=== PATIENT | female | born 1970 | race American Indian/Alaskan Native ===

== ENCOUNTER 2016-06-15 14:29 | Emergency (ER) | payer MEDICAID ==
--- NOTE | 2016-06-15 16:33 | Emergency Department Report ---
Chief Complaint: Abdominal Pain Stated Complaint: HBP/ABD PAIN Time Seen by Provider: 06/15/16 16:32 - HPI History of Present Illness: pt c/o abd pain - ROS Review of Systems: + hx of htn + mid abd pain - Exam Vital Signs: Vital Signs 06/15/16 16:12 Temperature 97.7 F Pulse Rate 100 H Respiratory 20 Rate Blood Pressure 180/142 O2 Sat by Pulse 100 Oximetry Physical Exam: obese abd, soft, + llq abd tenderness MSE screening note: Focused history and physical exam performed. Due to findings the following was ordered: labs, ekg ED Disposition for MSE Condition: Stable Instructions: Abdominal Pain (ED)
[2016-06-15 16:51] LABS: Eosinophils % (Auto) 0.2 % (0.0-4.3); Mean Corpuscular HGB Conc 31 % (30-34); Mean Corpuscular Volume 72 fl (79-97); Platelet Count 474 K/mm3 (140-440); Red Blood Count 5.27 M/mm3 (3.65-5.03); Red Cell Distribution Width 18.3 % (13.2-15.2); White Blood Count 9.5 K/mm3 (4.5-11.0)
[2016-06-15 16:52] LABS: Hematocrit 37.9 % (30.3-42.9); Hemoglobin 11.6 gm/dl (10.1-14.3); Mean Corpuscular Hemoglobin 22 pg (28-32)
[2016-06-15 17:04] LABS: Albumin 3.4 g/dL (3.9-5); Albumin/Globulin Ratio 0.8 %; BUN/Creatinine Ratio 13.33; Bilirubin,Total 0.3 mg/dL (0.1-1.2); Calcium 11.1 mg/dL (8.4-10.2); Chloride 100.5 mmol/L (98-107); Potassium 3.4 mmol/L (3.6-5.0); Total Protein 7.7 g/dL (6.3-8.2)
[2016-06-15] MEDS ORDERED: CATAPRES ONE (17:56)
--- NOTE | 2016-06-15 17:59 | Emergency Department Report ---
ED Abdominal Pain HPI - General Chief Complaint: Abdominal Pain Stated Complaint: HBP/ABD PAIN Time Seen by Provider: 06/15/16 16:32 Source: patient Mode of arrival: Ambulatory Limitations: No Limitations - History of Present Illness Initial Comments: 46-year-old female with a past medical history of asthma, CRI, CHF (10 years ago ) diabetes, hypertension, anemia, anxiety, and previous cholecystectomy presents to the hospital complaints of abdominal pain 5 days. Pain is in the mid abdomen above the umbilicus, cramping, aching, intermittent, rated 10/10 in intensity. Worse palpation. No alleviating factors and taking over-the- counter medication including Aleve without improvement. Positive nausea and vomiting on average twice daily. Denies hematochezia, hematemesis, melena, fever, or diarrhea. Last bowel movement was 5 days ago. Decreased by mouth intake reported secondary to pain. Patient has been out of her BP medications for 3 days. Patient's presented here for similar symptoms in the past and retention secondary to medication noncompliance. PMD: None - Related Data Home Medications Medication Instructions Recorded Confirmed Last Taken Albuterol Sulfate [Proventil HFA] 6.7 gm INHALATION Q4-6H 02/15/16 02/15/16 Insulin Glargine [Lantus VIAL] 30 units SQ QHS 02/15/16 02/15/16 02/15/16 Lisinopril [Lisinopril] 40 mg PO BID 02/15/16 02/15/16 02/15/16 Previous Rx's Medication Instructions Recorded Last Taken Type Acetaminophen [Tylenol Arthritis] 650 mg PO QID PRN #30 tablet.er 02/15/16 Unknown Rx Clonidine HCl [Catapres] 0.3 mg PO TID #90 tablet 06/15/16 Unknown Rx Lisinopril [Zestril] 40 mg PO BID #60 tablet 06/15/16 Unknown Rx Polyethylene Glycol 3350 [Miralax 17 gm PO QDAY PRN #10 packet 06/15/16 Unknown Rx 3350] Allergies Allergy/AdvReac Type Severity Reaction Status Date / Time No Known Allergies Allergy Verified 04/14/15 06:02 ED Review of Systems ROS: Stated complaint: HBP/ABD PAIN Other details as noted in HPI Comment: All other systems reviewed and negative Other: Constitutional: No fevers chills Eyes: No eye pain visual changes ENT: No ear pain or throat pain Neck: Denies pain Respiratory: Denies cough wheezing shortness of breath Cardiovascular: Denies chest pain, palpitations, syncope GI: as per hpi : Denies dysuria Musculoskeletal: Denies back pain, joint swelling Skin: Denies rash, lesions, erythema Neurologic: Denies headache, numbness, weakness ED Past Medical Hx - Past Medical History Previous Medical History?: Yes Hx Hypertension: Yes Hx Congestive Heart Failure: Yes Hx Diabetes: Yes Hx Psychiatric Treatment: Yes (anxiety) Hx Asthma: Yes Additional medical history: Anemia - Surgical History Past Surgical History?: Yes Hx Cholecystectomy: Yes (2009) - Social History Smoking Status: Never Smoker Substance Use Type: None - Medications Home Medications: Home Medications Medication Instructions Recorded Confirmed Last Taken Type Acetaminophen [Tylenol Arthritis] 650 mg PO QID PRN #30 tablet.er 02/15/16 Unknown Rx Albuterol Sulfate [Proventil HFA] 6.7 gm INHALATION Q4-6H 02/15/16 02/15/16 History Insulin Glargine [Lantus VIAL] 30 units SQ QHS 02/15/16 02/15/16 02/15/16 History Lisinopril [Lisinopril] 40 mg PO BID 02/15/16 02/15/16 02/15/16 History Clonidine HCl [Catapres] 0.3 mg PO TID #90 tablet 06/15/16 Unknown Rx Lisinopril [Zestril] 40 mg PO BID #60 tablet 06/15/16 Unknown Rx Polyethylene Glycol 3350 [Miralax 17 gm PO QDAY PRN #10 packet 06/15/16 Unknown Rx 3350] ED Physical Exam - General Limitations: No Limitations - Other Other exam information: General: No limitations, moderate distress secondary to pain Head exam: Atraumatic, normocephalic Eyes exam: Normal appearance ENT: Moist mucous membrane, normal oropharynx Neck exam: Normal inspection, full range of motion, no meningismus nontender Respiratory exam: Clear to auscultation bilateral, no wheezes, rales, crackles Cardiovascular: Mild tachycardia regular rhythm Abdomen: Soft, nondistended, tenderness to the upper abdominal area without rebound or guarding Extremity: Full range of motion normal inspection no deformity Back: Normal Inspection, full range of motion, no tenderness Neurologic: Alert, oriented x3, cranial nerves intact, no motor or sensory deficit Psychiatric: normal affect, normal mood Skin: Warm, dry, intact ED Course Vital Signs 06/15/16 06/15/16 06/15/16 16:12 17:24 17:30 Temperature 97.7 F Pulse Rate 100 H Respiratory 20 Rate Blood Pressure 180/142 229/154 239/142 O2 Sat by Pulse 100 98 Oximetry 06/15/16 06/15/16 06/15/16 17:40 17:51 18:00 Temperature Pulse Rate 87 127 H Respiratory 19 15 Rate Blood Pressure 228/136 230/135 208/162 O2 Sat by Pulse 96 98 99 Oximetry 06/15/16 06/15/16 06/15/16 18:11 18:13 18:43 Temperature Pulse Rate 89 91 H Respiratory 15 20 15 Rate Blood Pressure 208/162 210/152 O2 Sat by Pulse 100 100 97 Oximetry 06/15/16 06/15/16 06/15/16 18:51 19:00 19:11 Temperature Pulse Rate 82 98 H 84 Respiratory 16 19 25 H Rate Blood Pressure 227/150 232/158 232/158 O2 Sat by Pulse 97 95 Oximetry 06/15/16 06/15/16 06/15/16 19:30 20:09 20:15 Temperature Pulse Rate 81 72 72 Respiratory 17 19 24 Rate Blood Pressure 229/142 O2 Sat by Pulse 95 98 95 Oximetry 06/15/16 06/15/16 06/15/16 20:31 20:45 21:01 Temperature Pulse Rate 68 82 71 Respiratory 24 15 24 Rate Blood Pressure 230/141 221/134 O2 Sat by Pulse 96 98 94 Oximetry 06/15/16 06/15/16 06/15/16 21:15 21:20 21:31 Temperature Pulse Rate 113 H 75 121 H Respiratory 19 19 Rate Blood Pressure 217/128 230/118 209/107 O2 Sat by Pulse 98 Oximetry 06/15/16 06/15/16 06/15/16 21:47 22:00 23:37 Temperature Pulse Rate 127 H Respiratory Rate Blood Pressure 174/80 128/87 210/138 O2 Sat by Pulse Oximetry - Reevaluation(s) Reevaluation #1: 06/15/16 17:59 Dilaudid, Zofran, clonidine, and NS ordered. CT pending/UA/UPT pending ED Medical Decision Making - Lab Data Result diagrams: 06/15/16 16:32 06/15/16 16:32 Lab Results 06/15/16 06/15/16 06/15/16 Range/Units 16:32 16:32 16:35 WBC 9.5 (4.5-11.0) K/mm3 RBC 5.27 H (3.65-5.03) M/mm3 Hgb 11.6 (10.1-14.3) gm/dl Hct 37.9 (30.3-42.9) % MCV 72 L (79-97) fl MCH 22 L (28-32) pg MCHC 31 (30-34) % RDW 18.3 H (13.2-15.2) % Plt Count 474 H (140-440) K/mm3 Lymph % (Auto) 19.2 (13.4-35.0) % Mills % (Auto) 4.0 (0.0-7.3) % Eos % (Auto) 0.2 (0.0-4.3) % Baso % (Auto) 1.0 (0.0-1.8) % Lymph # 1.8 (1.2-5.4) K/mm3 [place] # 0.4 (0.0-0.8) K/mm3 Eos # 0.0 (0.0-0.4) K/mm3 Baso # 0.1 (0.0-0.1) K/mm3 Seg Neutrophils % 75.6 H (40.0-70.0) % Seg Neutrophils # 7.2 (1.8-7.7) K/mm3 Sodium 143 (137-145) mmol/L Potassium 3.4 L (3.6-5.0) mmol/L Chloride 100.5 (98-107) mmol/L Carbon Dioxide 26 (22-30) mmol/L Anion Gap 20 mmol/L BUN 24 H (7-17) mg/dL Creatinine 1.8 H (0.7-1.2) mg/dL Estimated GFR 37 ml/min BUN/Creatinine Ratio 13.33 % Glucose 196 H (65-100) mg/dL Calcium 11.1 H (8.4-10.2) mg/dL Total Bilirubin 0.3 (0.1-1.2) mg/dL AST 13 (5-40) units/L ALT 13 (7-56) units/L Alkaline Phosphatase 98 (35-129) units/L Troponin T < 0.010 (0.00-0.029) ng/mL Total Protein 7.7 (6.3-8.2) g/dL Albumin 3.4 L (3.9-5) g/dL Albumin/Globulin Ratio 0.8 % Lipase 20 (13-60) units/L HCG, Qual (Negative) Urine Color (Yellow) Urine Turbidity (Clear) Urine pH (5.0-7.0) Ur Specific [place] (1.003-1.030) Urine Protein (Negative) mg/dL Urine Glucose (UA) (Negative) mg/dL Urine Ketones (Negative) mg/dL Urine Blood (Negative) Urine Nitrite (Negative) Urine Bilirubin (Negative) Urine Urobilinogen (<2.0) mg/dL Ur Leukocyte Esterase (Negative) Urine WBC (Auto) (0.0-6.0) /HPF Urine RBC (Auto) (0.0-6.0) /HPF U Epithel Cells (Auto) (0-13.0) /HPF Urine Bacteria (Auto) (Negative) /HPF Urine Mucus /HPF Urine HCG, Qual (Negative) 06/15/16 06/15/16 Range/Units 18:28 18:35 WBC (4.5-11.0) K/mm3 RBC (3.65-5.03) M/mm3 Hgb (10.1-14.3) gm/dl Hct (30.3-42.9) % MCV (79-97) fl MCH (28-32) pg MCHC (30-34) % RDW (13.2-15.2) % Plt Count (140-440) K/mm3 Lymph % (Auto) (13.4-35.0) % Mills % (Auto) (0.0-7.3) % Eos % (Auto) (0.0-4.3) % Baso % (Auto) (0.0-1.8) % Lymph # (1.2-5.4) K/mm3 [place] # (0.0-0.8) K/mm3 Eos # (0.0-0.4) K/mm3 Baso # (0.0-0.1) K/mm3 Seg Neutrophils % (40.0-70.0) % Seg Neutrophils # (1.8-7.7) K/mm3 Sodium (137-145) mmol/L Potassium (3.6-5.0) mmol/L Chloride (98-107) mmol/L Carbon Dioxide (22-30) mmol/L Anion Gap mmol/L BUN (7-17) mg/dL Creatinine (0.7-1.2) mg/dL Estimated GFR ml/min BUN/Creatinine Ratio % Glucose (65-100) mg/dL Calcium (8.4-10.2) mg/dL Total Bilirubin (0.1-1.2) mg/dL AST (5-40) units/L ALT (7-56) units/L Alkaline Phosphatase (35-129) units/L Troponin T (0.00-0.029) ng/mL Total Protein (6.3-8.2) g/dL Albumin (3.9-5) g/dL Albumin/Globulin Ratio % Lipase (13-60) units/L HCG, Qual Negative (Negative) Urine Color [place] (Yellow) Urine Turbidity Cloudy (Clear) Urine pH 5.0 (5.0-7.0) Ur Specific [place] 1.027 (1.003-1.030) Urine Protein 100 mg/dl (Negative) mg/dL Urine Glucose (UA) Neg (Negative) mg/dL Urine Ketones Neg (Negative) mg/dL Urine Blood Neg (Negative) Urine Nitrite Neg (Negative) Urine Bilirubin Neg (Negative) Urine Urobilinogen < 2.0 (<2.0) mg/dL Ur Leukocyte Esterase Tr (Negative) Urine WBC (Auto) 1.0 (0.0-6.0) /HPF Urine RBC (Auto) 8.0 (0.0-6.0) /HPF U Epithel Cells (Auto) 22.0 H (0-13.0) /HPF Urine Bacteria (Auto) 1+ (Negative) /HPF Urine Mucus Few /HPF Urine HCG, Qual Negative (Negative) - EKG Data -: EKG Interpreted by Me (nsr 91, lvh, lat t wave inv) - EKG Data When compared to previous EKG there are: no significant change (compared to 11/13) - Radiology Data Radiology results: report reviewed HPF and pelvis without contrast: Mild colitis of the proximal left colon which could also be due to peristalsis colonoscopy recommended because underlying mass could have this appearance - Medical Decision Making Patient had extended ER stay were tried to control her blood pressure. Patient' s been noncompliant with her clonidine for several days likely the resulting of rebound hypertension. We were initially able to get her blood pressure down temporarily and then increased again. Patient states she no longer wants to stay in the hospital and is requested to sign out AMA. I have agreed to provide a refill in her blood pressure medication. Patient given additional labetalol 10 mg and lisinopril 40 minutes by mouth prior to her AMA. She was cautioned that elevated blood pressure can lead to stroke, kidney failure, and heart attack. CT significant for mild colitis or could be due to periods dialysis. Patient has not had diarrhea, leukocytosis, fever, or other infectious symptoms therefore she will be instructed to follow up with GI as outpatient. I do not believe antibiotics are indicated at this time. Patient also tachycardia prior to leaving. Tachycardia started after receiving hydralazine include be a result of this medication. Initial tachycardia recorded was erroneous and heart rate was reported to be less than 100s by the nurse prior to Hydralyzine - Differential Diagnosis pancreatitis, constipation, gastroparesis, hypertensive emergency Critical Care Time: No Critical care attestation.: If time is entered above; I have spent that time in minutes in the direct care of this critically ill patient, excluding procedure time. ED Disposition Clinical Impression: Abdominal pain, Constipation, Bowel wall thickening, Uncontrolled hypertension , Noncompliance with medication regimen, Hypokalemia, Chronic renal insufficiency Disposition: LEFT AGAINST MEDICAL ADVICE Is pt being admited?: No Does the pt Need Aspirin: No Condition: Stable Instructions: Constipation (ED), Abdominal Pain (ED), Hypertension (ED) Additional Instructions: Take the medication as prescribed. Try not to miss any doses due to risk of rebound elevated blood pressure that is difficult to control. You are signing put against medical advice because your blood pressure your heart rate was still elevated. You CT scan shows thickening of the first part of the left colon and 2 parts of your distal colon. This could represent mild colitis ( inflammation) but an underlying mass cannot also appears similar. It is very important you follow up with the GI physician for outpatient colonoscopy and reassessment Prescriptions: Clonidine HCl [Catapres] 0.3 mg PO TID #90 tablet Lisinopril [Zestril] 40 mg PO BID #60 tablet Polyethylene Glycol 3350 [Miralax 3350] 17 gm PO QDAY PRN #10 packet PRN Reason: Constipation Referrals: PHAM VAZQUEZ MD [Staff Physician] - 3-5 Days (GI doctor) SAUNDRA DANIELS MD, PHD [Staff Physician] - 3-5 Days (Primary care doctor) [facility] [Provider Group] - 3-5 Days (Primary care clinic) Time of Disposition: 23:42
[2016-06-15] MEDS: K-DUR PO ONE (18:05)
[2016-06-15] MEDS: CATAPRES PO ONE ×2 (18:07→18:37)
[2016-06-15] MEDS: ZOFRAN IV ONE (18:09)
[2016-06-15] MEDS: DILAUDID IV ONE ×2 (18:11→21:57)
[2016-06-15] MEDS: NACL 0.9% 1000 ML 1,000 ML IV ONE (18:13)
--- NOTE | 2016-06-15 18:33 | Admit Criteria Form ---
Admission Criteria Documentation: ABDOMINAL PAIN Clinical Indications for Admission to Inpatient Care (Place 'X' for any and all applicable criteria): Admission is indicated for ANY ONE of the following(1)(2)(3)(4)(5): [X ]I. Inpatient admission required rather than observation care (Also use Abdominal Pain: Observation Care, as appropriate) because of ANY ONE of the following: [X ]a) Severe pain requiring acute inpatient management [ ]b) Identification of etiology/finding that requires inpatient care (eg, aortic dissection, free air) [ ]c) Absent bowel sounds with complete ileus(6) [ ]d) Suspected toxic megacolon [ ]e) Severe electrolyte abnormalities requiring inpatient care [ ]f) High fever or infection requiring inpatient admission as indicated by ANY ONE of following(7)(8): [ ] i) Appropriate outpatient or observational care antimicrobial treatment unavailable, not effective, or not feasible [ ] ii) Documented bacteremia [ ] iii) Temperature > 104.9 degrees F (oral) [ ] iv) T >103.1 F (oral) or < 96.8 F(rectal) that does not respond to all emergency treatment measures [ ]g) Signs of intestinal obstruction [B] [ ]h) Hemodynamic instability [ ]i) IV fluid to replace significant ongoing losses (greater than 3 L/m2 per day) (12)(13) [ ]j) Percutaneous or open drainage (eg, abscess, biliary tract ) procedures [ ]k) Parenteral nutrition regimen that must be implemented on inpatient basis [X ]l) Other condition,treatment or monitoring requiring inpatient admission. [ ]II. Peritoneal signs present [ ]III. Surgery needed that cannot be performed on an ambulatory basis. [ ]IV. Evaluation requires patient to not eat or drink for extended period ( eg, more than 24 hours). [ ]V. Contraindications and/or Inappropriate clinical situations for Observational Care in patients with abdominal pain, when ANY ONE of the following is required: [ ]a) Thorough evaluation is required to prevent catastrophic events due to delays in diagnosing (e.g.Mesenteric ischemia) 1,3 [ ]b) Patient with severe pathology or with chronic symptoms unlikely to improve in the ED stay (3) [ ]. General contraindications and/or Inappropriate clinical situations for Observational Care in patients with abdominal pain, when ANY ONE of the following is required: [ ]a) Prediction of prolongation of LOS based on ANY ONE of the following may be considered as a contraindication for observational care 2, 3, 4, 5, 6, 7, 8, 9, 10, 11 [ ]i) Age > 65 yrs. [ ]ii) Patient arriving by ambulance [ ]iii) Patient with high acuity [ ]iv) Patient requiring vital sign monitoring [ ]v) Patient on IV medication [ ]b) Systolic blood pressures 180mmHg 3,12 [ ]c) Patient with altered mental status including delirium and other alteration of consciousness, (3) [ ]d) Patient whose discharge disposition will be to a retirement home or rehabilitation home should not be managed in Emergency Department Observation Unit. CMS rule requires 3 days hospital stay before such placement.3,13 [ ]e) Patient with failure to thrive due to broad array of etiologies 3,16,17 [ ]f) Inability to ambulate 3,14 Extended stay beyond goal length of stay may be needed for(2)(3): [ ]a) Persistent abdominal pain with suspected intra-abdominal process [ ]b) Diagnosed condition requiring continued stay (e.g., pancreatitis, complicated diverticulitis) [ ]c) Surgery (e.g., colectomy) The original [employer] [facility] content created by [employer] has been revised. The portions of the content which have been revised are identified through the use of italic text or in bold, and [facility] has neither reviewed nor approved the modified material.All other unmodified content is copyright [employer] [facility]. Please see references footnoted in the original [employer] [facility] edition 2016 Admission Criteria Met: Yes
[2016-06-15 19:28] LABS: Bacteria,Urine 1+ /HPF (Negative); Bilirubin,Urine NEG (Negative); Blood,Urine NEG (Negative); Ketones,Urine NEG (Negative); Leukocyte Esterase,Urine TR (Negative); Mucus,Urine FEW /HPF; Nitrite,Urine NEG (Negative); Urobilinogen,Urine < 2.0 mg/dL (<2.0)
--- NOTE | 2016-06-15 20:55 | Cat Scan Report ---
FINAL REPORT PROCEDURE: CT ABDOMEN PELVIS WO CON TECHNIQUE: Computerized axial tomography of the abdomen and pelvis was performed without intravenous contrast. This study is performed without intravascular contrast material and its sensitivity for abdominal and pelvic pathology, including neoplasms, inflammation, abscess, free fluid, thrombosis, arterial dissection and infarction, is reduced compared with a contrast enhanced study. HISTORY: mid abd pain, constipation, n,v COMPARISON: No prior studies are available for comparison. FINDINGS: Visualized lower thorax: No significant abnormality. Liver: Normal size and attenuation. Spleen: Normal size and attenuation. Gallbladder and biliary system: There has been cholecystectomy. Pancreas: Normal. Adrenals: There is a fat density 2 centimeter right adrenal nodule, likely benign. Kidneys: Normal. GI tract: The appendix is visualized and does not appear inflamed. There is focal wall thickening and indistinctness of the proximal left colon, which may be related to colitis. There are 2 short segments of wall thickening of the distal colon, in the distal left colon and proximal sigmoid colon. Although these could be related to peristalsis or mild colitis, cannot exclude underlying mucosal lesion. There is mild to moderate constipation. No evidence of small bowel obstruction. Lymph nodes and mesentery: Normal. Vasculature: Normal. Bladder: Normal. Reproductive organs: 18 millimeter left ovarian cyst. Peritoneum: No free fluid. Musculoskeletal structures: Bilateral L5 pars interarticularis defects. Other: None. IMPRESSION: Mild colitis of the proximal left colon. There also 2 segments of focal wall thickening of the distal colon as described above, possibly related to peristalsis or mild colitis. However recommend further evaluation with colonoscopy, as underlying mass could also have this appearance. Moderate constipation.
[2016-06-15] MEDS: APRESOLINE IV ONE (21:20)
[2016-06-15] MEDS: CEPHULAC PO ONE (21:57)
[2016-06-15] MEDS ORDERED: NORMODYNE IV ONE (23:29)
[2016-06-15 23:37] VITALS: BP 210/138
[2016-06-15] MEDS: NORMODYNE IV ONE (23:37)
[2016-06-16] MEDS: ZOFRAN IV ONE (00:05)
[2016-06-16] MEDS: ZESTRIL PO ONE (00:05)
== END 2016-06-16 00:17 | disposition left against medical advice (07) ==
LOC: ED 14:29
DX: E11.22 Type 2 diabetes mellitus with diabetic chronic kidney disease (principal); I12.9 Hypertensive chronic kidney disease with stage 1 through stage 4 chronic kidney disease, or unspecified chronic kidney disease; N18.9 Chronic kidney disease, unspecified; I50.9 Heart failure, unspecified; J45.909 Unspecified asthma, uncomplicated; R10.9 Unspecified abdominal pain; K59.00 Constipation, unspecified; Z91.14 Patient's other noncompliance with medication regimen; E87.6 Hypokalemia
CPT/HCPCS: 36415; 74176; 80053; 81001; 81025; 83690; 84484; 84703; 85025; 93005; 93010; 96361; 96374; 96375; 96376; 99284; J0360; J1170; J2405; J7030

== ENCOUNTER 2016-09-02 23:55 | Inpatient (IN) | payer MEDICAID ==
--- NOTE | 2016-09-03 00:37 | Emergency Department Report ---
ED Neuro Deficit HPI - General Stated Complaint: RT SIDE WEAKNESS Time Seen by Provider: 09/03/16 00:02 Source: police, old records reviewed (previous admissions for uncontrolled hypertension and previous visits for abdominal pain) Mode of arrival: Wheelchair Limitations: Physical Limitation, Other - History of Present Illness Initial Comments: 46-year-old female with a past medical history of asthma, chronic renal insufficiency, CHF, diabetes, hypertension, anemia, and anxiety presents to the hospital with strokelike symptoms. Symptoms sudden onset at 11:40 PM was witnessed by family members. They report that patient was speaking to them to all of the sudden face twisted and patient had difficulty speaking. By time of patient arrival to the ED she is completely aphasic and appears to have twisting of her left face therefore appearing to have right facial droop. Patient stares and does not answer question or nod yes or no when asked specifically questions. - Related Data Home Medications: Home Medications Medication Instructions Recorded Confirmed Last Taken Albuterol Sulfate [Proventil HFA] 6.7 gm INHALATION Q4-6H 02/15/16 02/15/16 Insulin Glargine [Lantus VIAL] 30 units SQ QHS 02/15/16 02/15/16 02/15/16 Lisinopril [Lisinopril] 40 mg PO BID 02/15/16 02/15/16 02/15/16 Previous Rx's Medication Instructions Recorded Last Taken Type Acetaminophen [Tylenol Arthritis] 650 mg PO QID PRN #30 tablet.er 02/15/16 Unknown Rx Clonidine HCl [Catapres] 0.3 mg PO TID #90 tablet 06/15/16 Unknown Rx Lisinopril [Zestril] 40 mg PO BID #60 tablet 06/15/16 Unknown Rx Polyethylene Glycol 3350 [Miralax 17 gm PO QDAY PRN #10 packet 06/15/16 Unknown Rx 3350] Allergies/Adverse Reactions: Allergies Allergy/AdvReac Type Severity Reaction Status Date / Time No Known Allergies Allergy Verified 04/14/15 06:02 ED Review of Systems ROS: Stated complaint: RT SIDE WEAKNESS Other details as noted in HPI Comment: Unobtainable due to pts medical conditions ED Past Medical Hx - Past Medical History Hx Hypertension: Yes Hx Congestive Heart Failure: Yes Hx Diabetes: Yes Hx Psychiatric Treatment: Yes (anxiety) Hx Asthma: Yes Additional medical history: Anemia - Surgical History Hx Cholecystectomy: Yes (2009) - Social History Smoking Status: Never Smoker Substance Use Type: None - Medications Home Medications: Home Medications Medication Instructions Recorded Confirmed Last Taken Type Acetaminophen [Tylenol Arthritis] 650 mg PO QID PRN #30 tablet.er 02/15/16 Unknown Rx Albuterol Sulfate [Proventil HFA] 6.7 gm INHALATION Q4-6H 02/15/16 02/15/16 History Insulin Glargine [Lantus VIAL] 30 units SQ QHS 02/15/16 02/15/16 02/15/16 History Lisinopril [Lisinopril] 40 mg PO BID 02/15/16 02/15/16 02/15/16 History Clonidine HCl [Catapres] 0.3 mg PO TID #90 tablet 06/15/16 Unknown Rx Lisinopril [Zestril] 40 mg PO BID #60 tablet 06/15/16 Unknown Rx Polyethylene Glycol 3350 [Miralax 17 gm PO QDAY PRN #10 packet 06/15/16 Unknown Rx 3350] ED Neuro Physical Exam - General Suspected Stroke: Yes - NIHSS Assessment Interval: Baseline 1a. Level of Consciousness: alert 1b. LOC Questions: answers correctly 1c. LOC Commands: performs tasks correctly 2. Best Gaze: normal 3. Visual: no visual loss 4. Facial Palsy: partial paralysis 5b. Motor Arm Right: no drift 5a. Motor Arm Left: no drift 6a. Motor Leg Left: no drift 6b. Motor Leg Right: no drift 7. Limb Ataxia: absent (pt will not perform task) 8. Sensory: normal 9. Best Language: mute/global aphasia 10. Dysarthria: severe dysarthria (not speaking) 11. Extinction/Inattention: no abnormality - Other Other exam information: General: No limitations, patient is alert in no acute distress Head exam: Atraumatic, normocephalic Eyes exam: Normal appearance, pupils equal reactive to light, extraocular movements intact ENT: Moist mucous membrane Neck exam: Normal inspection Respiratory exam: Clear to auscultation bilateral, no wheezes, rales, crackles Cardiovascular: Tachycardic regular rhythm Abdomen: Soft, nondistended, and nontender, with normal bowel sounds, no rebound, or guarding Extremity: Full range of motion normal inspection no deformity Back: Normal Inspection, full range of motion, no tenderness Neurologic: Alert, but will not speak, follow some commands, left facial droop, see NIH stroke scale. Patient unable to follow commands for [id number] testing Psychiatric: Anxious Skin: Warm, dry, intact ED Course Vital Signs 09/03/16 09/03/16 09/03/16 00:00 01:30 02:04 Pulse Rate 108 H Respiratory 18 22 Rate Blood Pressure 240/160 O2 Sat by Pulse 98 Oximetry 09/03/16 09/03/16 09/03/16 02:05 02:07 02:11 Pulse Rate 91 H 93 H 120 H Respiratory 26 H 23 Rate Blood Pressure 241/139 205/114 O2 Sat by Pulse 98 Oximetry 09/03/16 09/03/16 09/03/16 02:15 02:21 02:25 Pulse Rate 130 H 121 H 115 H Respiratory 19 28 H 26 H Rate Blood Pressure 205/114 205/114 205/114 O2 Sat by Pulse 96 Oximetry 09/03/16 09/03/16 09/03/16 02:30 02:35 02:41 Pulse Rate 114 H 158 H 108 H Respiratory 15 19 20 Rate Blood Pressure 182/99 182/99 182/99 O2 Sat by Pulse 98 Oximetry 09/03/16 09/03/16 09/03/16 02:45 02:51 02:55 Pulse Rate 120 H 120 H 107 H Respiratory 27 H 26 H 16 Rate Blood Pressure 222/128 222/128 206/118 O2 Sat by Pulse 99 96 98 Oximetry 09/03/16 09/03/16 09/03/16 03:00 03:05 03:10 Pulse Rate 115 H 109 H 141 H Respiratory 16 24 27 H Rate Blood Pressure 203/131 210/123 221/173 O2 Sat by Pulse 96 97 97 Oximetry 09/03/16 09/03/16 09/03/16 03:15 03:21 03:25 Pulse Rate 126 H 133 H 121 H Respiratory 21 20 24 Rate Blood Pressure 221/173 238/166 242/176 O2 Sat by Pulse 98 98 97 Oximetry 09/03/16 09/03/16 09/03/16 03:31 03:35 03:41 Pulse Rate 102 H 105 H 116 H Respiratory 24 25 H 22 Rate Blood Pressure 163/90 154/90 154/90 O2 Sat by Pulse 91 Oximetry 09/03/16 09/03/16 03:45 03:51 Pulse Rate 144 H 149 H Respiratory 24 18 Rate Blood Pressure 154/90 197/113 O2 Sat by Pulse 98 96 Oximetry - Reevaluation(s) Reevaluation #1: While patient was in CAT scan nurse reports that she was speaking intermittently and laughing and facial droop appears to be resolved however, upon returning back from CT she was aphasic with continued twisting of the left side of her face. 09/03/16 02:01 Labetalol IV was ordered at 1:16 for elevated blood pressure while awaiting for Cardene to be received from pharmacy. Blood pressure is still elevated in Cardene drip is being initiated at this time. Family states they now want TPA and therefore we are trying to reduce blood pressure within TPA parameters prior to her administration of medication. Patient developed one episode of vomiting prior to TPA administration Reevaluation #2: 09/03/16 02:31 Patient becoming increasingly agitated even prior to TPA especially when blood pressure cuff contracts on her arm. Ativan 1 mg provided to calm down patient. Patient requiring physical restraints at this time - Consultations Consultation #1: 09/03/16 12:[address] Doll cannon pinion adjuster neurologist who interviewed the patient and subsequently interviewed the family. Interview and exam completed at approximately 1:18 AM. At this time patient's family did not want TPA. Blood pressure is also elevated beyond TPA parameters. However, Dr. Doll states that patient have 4.5 hours from onset of symptoms to receive TPA if they changed their mind. Consultation #2: 09/03/16 01:59 Family states they want TPA at this time. Cardene just became available from pharmacy and is initiated. Waiting on blood pressure reduction prior to TPA administration. Patient also requires a second IV line - Lab Data Result diagrams: 09/03/16 00:10 09/03/16 00:10 Lab Results 09/03/16 09/03/16 09/03/16 Range/Units 00:03 00:10 00:10 WBC 13.9 H (4.5-11.0) K/mm3 RBC 5.95 H (3.65-5.03) M/mm3 Hgb 13.1 (10.1-14.3) gm/dl Hct 44.0 H (30.3-42.9) % MCV 74 L (79-97) fl MCH 22 L (28-32) pg MCHC 30 (30-34) % RDW 17.5 H (13.2-15.2) % Plt Count 391 (140-440) K/mm3 Lymph % (Auto) Mobility Developer Rooks % (Auto) Mobility Developer Eos % (Auto) Mobility Developer Baso % (Auto) Mobility Developer Lymph # Mobility Developer Rooks # Mobility Developer Eos # Mobility Developer Baso # Mobility Developer Add Manual Diff Complete Total Counted 100 Seg Neutrophils % Mobility Developer Seg Neuts % (Manual) 43.0 (40.0-70.0) % Band Neutrophils % 0 % Lymphocytes % (Manual) 54.0 H (13.4-35.0) % Reactive Lymphs % (Man) 0 % Monocytes % (Manual) 2.0 (0.0-7.3) % Eosinophils % (Manual) 1.0 (0.0-4.3) % Basophils % (Manual) 0 (0.0-1.8) % Metamyelocytes % 0 % Myelocytes % 0 % Promyelocytes % 0 % Blast Cells % 0 % Nucleated RBC % Not Reportable Seg Neutrophils # Mobility Developer Seg Neutrophils # Man 6.0 (1.8-7.7) K/mm3 Band Neutrophils # 0.0 K/mm3 Lymphocytes # (Manual) 7.5 H (1.2-5.4) K/mm3 Abs React Lymphs (Man) 0.0 K/mm3 Monocytes # (Manual) 0.3 (0.0-0.8) K/mm3 Eosinophils # (Manual) 0.1 (0.0-0.4) K/mm3 Basophils # (Manual) 0.0 (0.0-0.1) K/mm3 Metamyelocytes # 0.0 K/mm3 Myelocytes # 0.0 K/mm3 Promyelocytes # 0.0 K/mm3 Blast Cells # 0.0 K/mm3 WBC Morphology Not Reportable Hypersegmented Neuts Not Reportable Hyposegmented Neuts Not Reportable Hypogranular Neuts Not Reportable Smudge Cells Not Reportable Toxic Granulation Not Reportable Toxic Vacuolation Not Reportable Dohle Bodies Not Reportable Pelger-Huet Anomaly Not Reportable Jasmina Rods Not Reportable Platelet Estimate Appears normal Clumped Platelets Not Reportable Plt Clumps, EDTA Not Reportable Large Platelets Not Reportable Giant Platelets Not Reportable Platelet Satelliting Not Reportable Plt Morphology Comment Not Reportable RBC Morphology Not Reportable Dimorphic RBCs Not Reportable Polychromasia Not Reportable Hypochromasia 1+ Poikilocytosis Not Reportable Anisocytosis Not Reportable Microcytosis Not Reportable Macrocytosis Not Reportable Spherocytes Not Reportable Pappenheimer Bodies Not Reportable Sickle Cells Not Reportable Target Cells Not Reportable Tear Drop Cells Not Reportable Ovalocytes Not Reportable Helmet Cells Not Reportable Monet-Dresbach Bodies Not Reportable [place] Rings Not Reportable [place] Cells Not Reportable Bite Cells Not Reportable Crenated Cell Not Reportable Elliptocytes Not Reportable Acanthocytes (Spur) Not Reportable Rouleaux Not Reportable Hemoglobin C Crystals Not Reportable Schistocytes Not Reportable Malaria parasites Not Reportable Jun Bodies Not Reportable Hem Pathologist Commnt No PT 12.9 (12.2-14.9) Sec. INR 0.98 (0.87-1.13) APTT 29.0 (24.2-36.6) Sec. Thrombin Time 16.8 (15.1-19.6) Sec. Sodium (137-145) mmol/L Potassium (3.6-5.0) mmol/L Chloride (98-107) mmol/L Carbon Dioxide (22-30) mmol/L Anion Gap mmol/L BUN (7-17) mg/dL Creatinine (0.7-1.2) mg/dL Estimated GFR ml/min BUN/Creatinine Ratio % Glucose (65-100) mg/dL POC Glucose 177 H (70-105) Calcium (8.4-10.2) mg/dL Magnesium (1.7-2.3) mg/dL HCG, Qual (Negative) Blood Type Antibody Screen DELORIS Antibody Screen 09/03/16 09/03/16 09/03/16 Range/Units 00:10 00:10 00:10 WBC (4.5-11.0) K/mm3 RBC (3.65-5.03) M/mm3 Hgb (10.1-14.3) gm/dl Hct (30.3-42.9) % MCV (79-97) fl MCH (28-32) pg MCHC (30-34) % RDW (13.2-15.2) % Plt Count (140-440) K/mm3 Lymph % (Auto) Rooks % (Auto) Eos % (Auto) Baso % (Auto) Lymph # Rooks # Eos # Baso # Add Manual Diff Total Counted Seg Neutrophils % Seg Neuts % (Manual) (40.0-70.0) % Band Neutrophils % % Lymphocytes % (Manual) (13.4-35.0) % Reactive Lymphs % (Man) % Monocytes % (Manual) (0.0-7.3) % Eosinophils % (Manual) (0.0-4.3) % Basophils % (Manual) (0.0-1.8) % Metamyelocytes % % Myelocytes % % Promyelocytes % % Blast Cells % % Nucleated RBC % Seg Neutrophils # Seg Neutrophils # Man (1.8-7.7) K/mm3 Band Neutrophils # K/mm3 Lymphocytes # (Manual) (1.2-5.4) K/mm3 Abs React Lymphs (Man) K/mm3 Monocytes # (Manual) (0.0-0.8) K/mm3 Eosinophils # (Manual) (0.0-0.4) K/mm3 Basophils # (Manual) (0.0-0.1) K/mm3 Metamyelocytes # K/mm3 Myelocytes # K/mm3 Promyelocytes # K/mm3 Blast Cells # K/mm3 WBC Morphology Hypersegmented Neuts Hyposegmented Neuts Hypogranular Neuts Smudge Cells Toxic Granulation Toxic Vacuolation Dohle Bodies Pelger-Huet Anomaly Jasmina Rods Platelet Estimate Clumped Platelets Plt Clumps, EDTA Large Platelets Giant Platelets Platelet Satelliting Plt Morphology Comment RBC Morphology Dimorphic RBCs Polychromasia Hypochromasia Poikilocytosis Anisocytosis Microcytosis Macrocytosis Spherocytes Pappenheimer Bodies Sickle Cells Target Cells Tear Drop Cells Ovalocytes Helmet Cells Monet-Dresbach Bodies [place] Rings [place] Cells Bite Cells Crenated Cell Elliptocytes Acanthocytes (Spur) Rouleaux Hemoglobin C Crystals Schistocytes Malaria parasites Jun Bodies Hem Pathologist Commnt PT (12.2-14.9) Sec. INR (0.87-1.13) APTT (24.2-36.6) Sec. Thrombin Time (15.1-19.6) Sec. Sodium 140 (137-145) mmol/L Potassium 2.8 L* (3.6-5.0) mmol/L Chloride 100.3 (98-107) mmol/L Carbon Dioxide 21 L (22-30) mmol/L Anion Gap 22 mmol/L BUN 15 (7-17) mg/dL Creatinine 1.7 H (0.7-1.2) mg/dL Estimated GFR 39 ml/min BUN/Creatinine Ratio 8.82 % Glucose 159 H (65-100) mg/dL POC Glucose (70-105) Calcium 9.4 (8.4-10.2) mg/dL Magnesium (1.7-2.3) mg/dL HCG, Qual Negative (Negative) Blood Type A POSITIVE Antibody Screen TNR DELORIS Antibody Screen Negative 09/03/16 Range/Units 00:10 WBC (4.5-11.0) K/mm3 RBC (3.65-5.03) M/mm3 Hgb (10.1-14.3) gm/dl Hct (30.3-42.9) % MCV (79-97) fl MCH (28-32) pg MCHC (30-34) % RDW (13.2-15.2) % Plt Count (140-440) K/mm3 Lymph % (Auto) Rooks % (Auto) Eos % (Auto) Baso % (Auto) Lymph # Rooks # Eos # Baso # Add Manual Diff Total Counted Seg Neutrophils % Seg Neuts % (Manual) (40.0-70.0) % Band Neutrophils % % Lymphocytes % (Manual) (13.4-35.0) % Reactive Lymphs % (Man) % Monocytes % (Manual) (0.0-7.3) % Eosinophils % (Manual) (0.0-4.3) % Basophils % (Manual) (0.0-1.8) % Metamyelocytes % % Myelocytes % % Promyelocytes % % Blast Cells % % Nucleated RBC % Seg Neutrophils # Seg Neutrophils # Man (1.8-7.7) K/mm3 Band Neutrophils # K/mm3 Lymphocytes # (Manual) (1.2-5.4) K/mm3 Abs React Lymphs (Man) K/mm3 Monocytes # (Manual) (0.0-0.8) K/mm3 Eosinophils # (Manual) (0.0-0.4) K/mm3 Basophils # (Manual) (0.0-0.1) K/mm3 Metamyelocytes # K/mm3 Myelocytes # K/mm3 Promyelocytes # K/mm3 Blast Cells # K/mm3 WBC Morphology Hypersegmented Neuts Hyposegmented Neuts Hypogranular Neuts Smudge Cells Toxic Granulation Toxic Vacuolation Dohle Bodies Pelger-Huet Anomaly Jasmina Rods Platelet Estimate Clumped Platelets Plt Clumps, EDTA Large Platelets Giant Platelets Platelet Satelliting Plt Morphology Comment RBC Morphology Dimorphic RBCs Polychromasia Hypochromasia Poikilocytosis Anisocytosis Microcytosis Macrocytosis Spherocytes Pappenheimer Bodies Sickle Cells Target Cells Tear Drop Cells Ovalocytes Helmet Cells Monet-Dresbach Bodies [place] Rings [place] Cells Bite Cells Crenated Cell Elliptocytes Acanthocytes (Spur) Rouleaux Hemoglobin C Crystals Schistocytes Malaria parasites Jun Bodies Hem Pathologist Commnt PT (12.2-14.9) Sec. INR (0.87-1.13) APTT (24.2-36.6) Sec. Thrombin Time (15.1-19.6) Sec. Sodium (137-145) mmol/L Potassium (3.6-5.0) mmol/L Chloride (98-107) mmol/L Carbon Dioxide (22-30) mmol/L Anion Gap mmol/L BUN (7-17) mg/dL Creatinine (0.7-1.2) mg/dL Estimated GFR ml/min BUN/Creatinine Ratio % Glucose (65-100) mg/dL POC Glucose (70-105) Calcium (8.4-10.2) mg/dL Magnesium 1.70 (1.7-2.3) mg/dL HCG, Qual (Negative) Blood Type Antibody Screen DELORIS Antibody Screen - EKG Data -: EKG Interpreted by Me (sinus tach 127 with PVCs and fusion complexes, LVH) When compared to previous EKG there are: no significant change (compared to ) - Radiology Data Radiology results: report reviewed CT head noncontrast: Old lacunar infarct suspected in the left bowel movement. Gliosis is also suspected slightly asymmetric, more on the left than the right. Cannot exclude acute intracranial ischemic change - Medical Decision Making After consultation with neurologist and family we will proceed with TPA administration. Cardine initiated to reduce blood pressure and patient recurrent Ativan due to agitation. Patient requires admission for MRI and further workup. IV potassium initiated for hypokalemia - Differential Diagnosis psychiatric disorder, focal seizure, intracranial hemorrhage, stroke - Thrombolytic Inclusion/Exclusion Thrombolytic Inclusion Criteria: Ischemic Stroke Onset< 3h Thrombolytic Contraindications: Systolic Pressure > 185, Diastolic Pressure > 110 Critical Care Time: No Critical care attestation.: If time is entered above; I have spent that time in minutes in the direct care of this critically ill patient, excluding procedure time. ED Disposition Clinical Impression: Acute CVA (cerebrovascular accident), Hypertensive emergency, Obesity (BMI 35.0 -39.9 without comorbidity), Type 2 diabetes mellitus, Chronic renal insufficiency, Hypokalemia Disposition: OP ADMIT IP TO THIS HOSP Is pt being admited?: Yes Condition: Stable Time of Disposition: 02:24 (Dr Lopes/hosp)
--- NOTE | 2016-09-03 00:38 | Cat Scan Report ---
FINAL REPORT PROCEDURE: CT HEAD/BRAIN WO CON TECHNIQUE: Computerized tomography of the head was performed without contrast material. HISTORY: stroke symptoms, right facial droop COMPARISON: No prior studies are available for comparison. FINDINGS: Brain: There is no evidence of intracranial hemorrhage. No parenchymal hemorrhage is seen. No mass lesions or mass effect is identified. No abnormal extra-axial fluid collections or masses are seen. There is a well-defined area of decreased density seen in the left thalamus measuring 1.2 x 0.9 centimeters suggesting an old lacunar infarct. There is some decreased density seen in the periventricular white matter without mass effect. This is mildly asymmetric, little more prominent on the left laterally than on the right. This does not exhibit any mass effect. This may represent gliosis possibly on the basis of microvascular disease.. Ventricles: Ventricles are normal size and are midline. Sulcal pattern and fissures mildly prominent suggesting mild atrophy. Bones: No evidence of acute fracture. Paranasal sinuses: clear Mastoid air cells: clear IMPRESSION: Old lacunar infarct suspected left thalamus. Gliosis also suspected although this is slightly asymmetric more on the left than the right. I cannot exclude acute intracranial ischemic change. Consider MRI of the brain for further evaluation. There is also mild atrophy. I discussed these findings in detail with Dr Huggins on 09/03/2016 at 12:30 a.m. Eastern standard time. Critical value:
[2016-09-03 00:58] LABS: INR 0.98 (0.87-1.13)
[2016-09-03 00:59] LABS: BUN/Creatinine Ratio 8.82; Calcium 9.4 mg/dL (8.4-10.2); Thrombin Time 16.8 Sec. (15.1-19.6)
[2016-09-03 01:12] LABS: Hemoglobin 13.1 gm/dl (10.1-14.3); Mean Corpuscular HGB Conc 30 % (30-34); Mean Corpuscular Hemoglobin 22 pg (28-32); Mean Corpuscular Volume 74 fl (79-97); Platelet Count 391 K/mm3 (140-440); Red Blood Count 5.95 M/mm3 (3.65-5.03); Red Cell Distribution Width 17.5 % (13.2-15.2)
[2016-09-03] MEDS: NORMODYNE IV ONE ×2 (01:30→02:07)
[2016-09-03] MEDS: KCL 10MEQ/100ML 10 MEQ/100 ML BAG IV SCH ×4 (01:30→06:47)
[2016-09-03] MEDS ORDERED: ZOFRAN ONE (01:51)
[2016-09-03 01:56] LABS: Basophils % (Manual) 0 % (0.0-1.8); Total Cells Counted 100
[2016-09-03 01:57] LABS: Hypochromasia 1+
[2016-09-03] MEDS ORDERED: ZOFRAN IV ONE (02:02)
[2016-09-03] MEDS ORDERED: NACL 0.9% IV ONE (02:18)
[2016-09-03] MEDS ORDERED: ACTIVASE IV ONE ×2 (02:18)
[2016-09-03] MEDS ORDERED: ATIVAN ONE ×2 (02:26→06:26)
[2016-09-03] MEDS ORDERED: ATIVAN IV ONE ×4 (02:27→11:30)
[2016-09-03] MEDS: CARDENE 50 MG in NACL 0.9% 250ML 230 ML IV SCH (02:35)
[2016-09-03] MEDS ORDERED: NORMODYNE 200 MG in D5W 160 ML IV ONE (04:04)
--- NOTE | 2016-09-03 04:05 | History and Physical Report ---
Medications and Allergies Allergies Allergy/AdvReac Type Severity Reaction Status Date / Time No Known Allergies Allergy Verified 04/14/15 06:02 Home Medications Medication Instructions Recorded Confirmed Last Taken Type Acetaminophen [Tylenol Arthritis] 650 mg PO QID PRN #30 tablet.er 02/15/16 Unknown Rx Albuterol Sulfate [Proventil HFA] 6.7 gm INHALATION Q4-6H 02/15/16 02/15/16 History Insulin Glargine [Lantus VIAL] 30 units SQ QHS 02/15/16 02/15/16 02/15/16 History Lisinopril [Lisinopril] 40 mg PO BID 02/15/16 02/15/16 02/15/16 History Clonidine HCl [Catapres] 0.3 mg PO TID #90 tablet 06/15/16 Unknown Rx Lisinopril [Zestril] 40 mg PO BID #60 tablet 06/15/16 Unknown Rx Polyethylene Glycol 3350 [Miralax 17 gm PO QDAY PRN #10 packet 06/15/16 Unknown Rx 3350] Active Meds: Active Medications Nicardipine HCl 50 mg/ Sodium (Chloride) 250 mls @ 25 mls/hr IV TITR AGUSTIN; 5 MG/ HR PRN Reason: Protocol Potassium Chloride (Kcl 10meq/100ml) 10 meq in 100 mls @ 100 mls/hr IV Q1H AGUSTIN Stop: 09/03/16 05:59 Labetalol HCl 200 mg/ Dextrose 200 mls @ 120 mls/hr IV ONCE ONE; 2 MG/MIN PRN Reason: Protocol Stop: 09/03/16 05:43 Exam - Constitutional Vitals: Temp Pulse Resp BP Pulse Ox 93 H 241/139 09/03/16 02:07 09/03/16 02:07 Results - Labs CBC & Chem 7: 09/03/16 00:10 09/03/16 00:10 Labs: Abnormal lab results 09/03/16 09/03/16 09/03/16 Range/Units 00:03 00:10 00:10 WBC 13.9 H (4.5-11.0) K/mm3 RBC 5.95 H (3.65-5.03) M/mm3 Hct 44.0 H (30.3-42.9) % MCV 74 L (79-97) fl MCH 22 L (28-32) pg RDW 17.5 H (13.2-15.2) % Lymphocytes % (Manual) 54.0 H (13.4-35.0) % Lymphocytes # (Manual) 7.5 H (1.2-5.4) K/mm3 Potassium 2.8 L* (3.6-5.0) mmol/L Carbon Dioxide 21 L (22-30) mmol/L Creatinine 1.7 H (0.7-1.2) mg/dL Glucose 159 H (65-100) mg/dL POC Glucose 177 H (70-105)
[2016-09-03] MEDS ORDERED: SODIUM CHLORIDE FLUSH SYRINGE 10 ML IV PRN (04:17)
--- NOTE | 2016-09-03 04:28 | History and Physical Report ---
History of Present Illness Date of examination: 09/03/16 History of present illness: 46-year-old woman with a history of hypertension, diabetes, asthma, hyperlipidemia, chronic kidney disease, anxiety was brought to the emergency room because family noticed on 11:30 that she couldn't get her words out, her face was also twisted. She was brought emergently to the emergency room, her blood pressure was very elevated, systolic greater than 260. Her blood pressure was very difficult to control, however after was control, TPA was started but this was discontinued after 5 minutes because her blood pressure became uncontrolled. The TPA was not initiated again because the patient was outside the TPA window. The patient was placed in restraints because she kept taking out her IV assess , Ativan was also given .Review of system is unobtainable. Family member states she is noncompliant with medication PAST SURGICAL HISTORY: Cholecystectomy SOCIAL HISTORY: Family member states she does not smoke or drink FAMILY HISTORY: Hypertension Medications and Allergies Allergies Allergy/AdvReac Type Severity Reaction Status Date / Time No Known Allergies Allergy Verified 04/14/15 06:02 Home Medications Medication Instructions Recorded Confirmed Last Taken Type Acetaminophen [Tylenol Arthritis] 650 mg PO QID PRN #30 tablet.er 02/15/16 Unknown Rx Albuterol Sulfate [Proventil HFA] 6.7 gm INHALATION Q4-6H 02/15/16 02/15/16 History Insulin Glargine [Lantus VIAL] 30 units SQ QHS 02/15/16 02/15/16 02/15/16 History Lisinopril [Lisinopril] 40 mg PO BID 02/15/16 02/15/16 02/15/16 History Clonidine HCl [Catapres] 0.3 mg PO TID #90 tablet 06/15/16 Unknown Rx Lisinopril [Zestril] 40 mg PO BID #60 tablet 06/15/16 Unknown Rx Polyethylene Glycol 3350 [Miralax 17 gm PO QDAY PRN #10 packet 06/15/16 Unknown Rx 3350] Active Meds: Active Medications Nicardipine HCl 50 mg/ Sodium (Chloride) 250 mls @ 25 mls/hr IV TITR AGUSTIN; 5 MG/ HR PRN Reason: Protocol Potassium Chloride (Kcl 10meq/100ml) 10 meq in 100 mls @ 100 mls/hr IV Q1H AGUSTIN Stop: 09/03/16 05:59 Labetalol HCl 200 mg/ Dextrose 200 mls @ 120 mls/hr IV ONCE.ED ONE; 2 MG/MIN PRN Reason: Protocol Stop: 09/03/16 05:43 Exam - Physical Exam Narrative exam: Gen. appearance: Patient lying in bed, no apparent distress, 4. restraints HEENT: Normocephalic, atraumatic, pupils equally round and reactive to light, extraocular movement intact, and no sclericterus,. No JVD or thyromegaly or nodule,neck supple, no carotid bruit ,mucous membranes moist, unable to examine oral cavity Heart: S1, S2, regular rate and rhythm Lungs: Clear to auscultation bilaterally, breathing comfortable Abdomen: Positive bowel sounds, nontender, nondistended, no organomegaly Extremity: No edema, cyanosis, clubbing Skin: No rash, nodules, warm, dry Neuro: Difficult to assess, facial droop, moves all 4 extremities - Constitutional Vitals: Temp Pulse Resp BP Pulse Ox 149 H 18 197/113 96 09/03/16 03:51 09/03/16 03:51 09/03/16 03:51 09/03/16 03:51 Results - Labs CBC & Chem 7: 09/04/16 03:31 09/04/16 03:31 Labs: Abnormal lab results 09/03/16 09/03/16 09/03/16 Range/Units 00:03 00:10 00:10 WBC 13.9 H (4.5-11.0) K/mm3 RBC 5.95 H (3.65-5.03) M/mm3 Hct 44.0 H (30.3-42.9) % MCV 74 L (79-97) fl MCH 22 L (28-32) pg RDW 17.5 H (13.2-15.2) % Lymphocytes % (Manual) 54.0 H (13.4-35.0) % Lymphocytes # (Manual) 7.5 H (1.2-5.4) K/mm3 Potassium 2.8 L* (3.6-5.0) mmol/L Carbon Dioxide 21 L (22-30) mmol/L Creatinine 1.7 H (0.7-1.2) mg/dL Glucose 159 H (65-100) mg/dL POC Glucose 177 H (70-105) - Imaging and Cardiology EKG: image reviewed CT Scan - head: report reviewed Assessment and Plan Acute CVA Hypertension uncontrolled Hypokalemia Diabetes type 2 Hyperlipidemia Chronic kidney disease Asthma Admit to medicine Do neurochecks, swallow screen Obtain MRI of the head, carotid Doppler, echo Check cardiac enzymes, fingersticks Patient tachycardic, switch Cardene to labetalol drip Consult neurology, physical, occupational and speech therapy Replete potssium DVT prophylaxis with SCD Discussed with family at bedside
[2016-09-03] MEDS ORDERED: KCL 10MEQ/100ML 10 MEQ/100 ML BAG IV SCH (05:00)
[2016-09-03 06:11] LABS: Creatine Kinase MB 1.2 ng/mL (0.0-4.0)
[2016-09-03] MEDS: NORMODYNE 200 MG in D5W 160 ML IV SCH ×7 (07:20→21:08)
[2016-09-03] MEDS: ASPIRIN PR SCH (09:10)
--- NOTE | 2016-09-03 10:15 | Progress Note ---
Assessment and Plan Assessment and plan: Acute CVA. Continue neuro checks. Follow-up MRI/MRA, carotid Doppler and echocardiogram. Neurology consultation. PT/OT/ST. Accelerated Hypertension. Continue labetalol IV. Place [place] to potentially start by mouth antihypertensive medications. Resume home medications of clonidine and lisinopril Hypokalemia. Replete potassium. Diabetes type 2. Continue sliding-scale regular insulin and Accu-Cheks. Hyperlipidemia. Follow-up lipid profile and treat accordingly. Chronic kidney disease. The patient's creatinine May 2016 was 1.8. Patient appears to be at baseline. Asthma. Stable History Interval history: 46-year-old woman with a history of hypertension, diabetes, asthma, hyperlipidemia, chronic kidney disease and anxiety who was admitted for acute CVA and accelerated hypertension. Patient's blood pressure systolically on admission was noted be greater than 260. TPA was started but this was discontinued after 5 minutes because her blood pressure became uncontrolled. The TPA was not initiated again because the patient was outside the TPA window. Patient remains confused and combative requiring restraints. Patient was initially started on Cardene drip that has been changed to IV labetalol. Hospitalist Physical - Constitutional Vitals: Temp Pulse Resp BP Pulse Ox 97.8 F 81 84 H 192/102 98 09/03/16 08:00 09/03/16 09:02 09/03/16 08:16 09/03/16 09:02 09/03/16 08:16 General appearance: Present: no acute distress, well-nourished - EENT Eyes: Present: PERRL, EOM intact ENT: hearing intact, clear oral mucosa, dentition normal - Neck Neck: Present: supple, normal ROM - Respiratory Respiratory effort: normal Respiratory: bilateral: CTA - Cardiovascular Rhythm: regular Heart Sounds: Present: S1 & S2. Absent: gallop, rub - Extremities Extremities: no ischemia, No edema, Full ROM - Abdominal General gastrointestinal: soft, non-tender, non-distended, normal bowel sounds - Integumentary Integumentary: Present: clear, warm, dry - Neurologic Neurologic: CNII-XII intact, moves all extremities, other (somnolent and confused when aroused. she does not follow commands) Results - Labs CBC & Chem 7: 09/03/16 00:10 09/03/16 00:10 Labs: Laboratory Last Values WBC 13.9 K/mm3 (4.5-11.0) H 09/03/16 00:10 RBC 5.95 M/mm3 (3.65-5.03) H 09/03/16 00:10 Hgb 13.1 gm/dl (10.1-14.3) 09/03/16 00:10 Hct 44.0 % (30.3-42.9) H 09/03/16 00:10 MCV 74 fl (79-97) L 09/03/16 00:10 MCH 22 pg (28-32) L 09/03/16 00:10 MCHC 30 % (30-34) 09/03/16 00:10 RDW 17.5 % (13.2-15.2) H 09/03/16 00:10 Plt Count 391 K/mm3 (140-440) 09/03/16 00:10 Lymph % (Auto) [employer] 09/03/16 00:10 [place] % (Auto) [employer] 09/03/16 00:10 Eos % (Auto) [employer] 09/03/16 00:10 Baso % (Auto) [employer] 09/03/16 00:10 Lymph # [employer] 09/03/16 00:10 [place] # [employer] 09/03/16 00:10 Eos # [employer] 09/03/16 00:10 Baso # [employer] 09/03/16 00:10 Add Manual Diff Complete 09/03/16 00:10 Total Counted 100 09/03/16 00:10 Seg Neutrophils % [employer] 09/03/16 00:10 Seg Neuts % (Manual) 43.0 % (40.0-70.0) 09/03/16 00:10 Band Neutrophils % 0 % 09/03/16 00:10 Lymphocytes % (Manual) 54.0 % (13.4-35.0) H 09/03/16 00:10 Reactive Lymphs % (Man) 0 % 09/03/16 00:10 Monocytes % (Manual) 2.0 % (0.0-7.3) 09/03/16 00:10 Eosinophils % (Manual) 1.0 % (0.0-4.3) 09/03/16 00:10 Basophils % (Manual) 0 % (0.0-1.8) 09/03/16 00:10 Metamyelocytes % 0 % 09/03/16 00:10 Myelocytes % 0 % 09/03/16 00:10 Promyelocytes % 0 % 09/03/16 00:10 Blast Cells % 0 % 09/03/16 00:10 Nucleated RBC % Not Reportable 09/03/16 00:10 Seg Neutrophils # [employer] 09/03/16 00:10 Seg Neutrophils # Man 6.0 K/mm3 (1.8-7.7) 09/03/16 00:10 Band Neutrophils # 0.0 K/mm3 09/03/16 00:10 Lymphocytes # (Manual) 7.5 K/mm3 (1.2-5.4) H 09/03/16 00:10 Abs React Lymphs (Man) 0.0 K/mm3 09/03/16 00:10 Monocytes # (Manual) 0.3 K/mm3 (0.0-0.8) 09/03/16 00:10 Eosinophils # (Manual) 0.1 K/mm3 (0.0-0.4) 09/03/16 00:10 Basophils # (Manual) 0.0 K/mm3 (0.0-0.1) 09/03/16 00:10 Metamyelocytes # 0.0 K/mm3 09/03/16 00:10 Myelocytes # 0.0 K/mm3 09/03/16 00:10 Promyelocytes # 0.0 K/mm3 09/03/16 00:10 Blast Cells # 0.0 K/mm3 09/03/16 00:10 WBC Morphology Not Reportable 09/03/16 00:10 Hypersegmented Neuts Not Reportable 09/03/16 00:10 Hyposegmented Neuts Not Reportable 09/03/16 00:10 Hypogranular Neuts Not Reportable 09/03/16 00:10 Smudge Cells Not Reportable 09/03/16 00:10 Toxic Granulation Not Reportable 09/03/16 00:10 Toxic Vacuolation Not Reportable 09/03/16 00:10 Dohle Bodies Not Reportable 09/03/16 00:10 Pelger-Huet Anomaly Not Reportable 09/03/16 00:10 Jasmina Rods Not Reportable 09/03/16 00:10 Platelet Estimate Appears normal 09/03/16 00:10 Clumped Platelets Not Reportable 09/03/16 00:10 Plt Clumps, EDTA Not Reportable 09/03/16 00:10 Large Platelets Not Reportable 09/03/16 00:10 Giant Platelets Not Reportable 09/03/16 00:10 Platelet Satelliting Not Reportable 09/03/16 00:10 Plt Morphology Comment Not Reportable 09/03/16 00:10 RBC Morphology Not Reportable 09/03/16 00:10 Dimorphic RBCs Not Reportable 09/03/16 00:10 Polychromasia Not Reportable 09/03/16 00:10 Hypochromasia 1+ 09/03/16 00:10 Poikilocytosis Not Reportable 09/03/16 00:10 Anisocytosis Not Reportable 09/03/16 00:10 Microcytosis Not Reportable 09/03/16 00:10 Macrocytosis Not Reportable 09/03/16 00:10 Spherocytes Not Reportable 09/03/16 00:10 Pappenheimer Bodies Not Reportable 09/03/16 00:10 Sickle Cells Not Reportable 09/03/16 00:10 Target Cells Not Reportable 09/03/16 00:10 Tear Drop Cells Not Reportable 09/03/16 00:10 Ovalocytes Not Reportable 09/03/16 00:10 Helmet Cells Not Reportable 09/03/16 00:10 [place] Bodies Not Reportable 09/03/16 00:10 [place] Rings Not Reportable 09/03/16 00:10 [place] Cells Not Reportable 09/03/16 00:10 Bite Cells Not Reportable 09/03/16 00:10 Crenated Cell Not Reportable 09/03/16 00:10 Elliptocytes Not Reportable 09/03/16 00:10 Acanthocytes (Spur) Not Reportable 09/03/16 00:10 Rouleaux Not Reportable 09/03/16 00:10 Hemoglobin C Crystals Not Reportable 09/03/16 00:10 Schistocytes Not Reportable 09/03/16 00:10 Malaria parasites Not Reportable 09/03/16 00:10 Jun Bodies Not Reportable 09/03/16 00:10 Hem Pathologist Commnt No 09/03/16 00:10 PT 12.9 Sec. (12.2-14.9) 09/03/16 00:10 INR 0.98 (0.87-1.13) 09/03/16 00:10 APTT 29.0 Sec. (24.2-36.6) 09/03/16 00:10 Thrombin Time 16.8 Sec. (15.1-19.6) 09/03/16 00:10 Sodium 140 mmol/L (137-145) 09/03/16 00:10 Potassium 2.8 mmol/L (3.6-5.0) L* 09/03/16 00:10 Chloride 100.3 mmol/L (98-107) 09/03/16 00:10 Carbon Dioxide 21 mmol/L (22-30) L 09/03/16 00:10 Anion Gap 22 mmol/L 09/03/16 00:10 BUN 15 mg/dL (7-17) 09/03/16 00:10 Creatinine 1.7 mg/dL (0.7-1.2) H 09/03/16 00:10 Estimated GFR 39 ml/min 09/03/16 00:10 BUN/Creatinine Ratio 8.82 % 09/03/16 00:10 Glucose 159 mg/dL (65-100) H 09/03/16 00:10 POC Glucose 177 (70-105) H 09/03/16 00:03 Calcium 9.4 mg/dL (8.4-10.2) 09/03/16 00:10 Magnesium 1.70 mg/dL (1.7-2.3) 09/03/16 00:10 Total Creatine Kinase 38 units/L (30-135) 09/03/16 05:04 CK-MB (CK-2) 1.2 ng/mL (0.0-4.0) 09/03/16 05:04 CK-MB (CK-2) Rel Index 3.1 (0-4) 09/03/16 05:04 Troponin T < 0.010 ng/mL (0.00-0.029) 09/03/16 05:04 HCG, Qual Negative (Negative) 09/03/16 00:10 Blood Type A POSITIVE 09/03/16 00:10 Antibody Screen TNR 09/03/16 00:10 DELORIS Antibody Screen Negative 09/03/16 00:10
[2016-09-03] MEDS ORDERED: D50W (25GM) Syringe IV PRN (10:34)
--- NOTE | 2016-09-03 11:36 | XRay Report ---
Single view abdomen: History: Feeding tube placement. Findings: Tip of the feeding tube is noted in distal stomach. Impression: Tip of feeding tube is noted in distal stomach.
--- NOTE | 2016-09-03 11:38 | Consultation ---
History of Present Illness Consult date: 09/03/16 Requesting physician: IDRIS CONTE Reason for consult: other (Acute CVA s/p tpA) History of present illness: PULMONARY/CCM CONSULT NOTE (Full dictation # [phone]) Please see dictated notes for full details Medications and Allergies Allergies Allergy/AdvReac Type Severity Reaction Status Date / Time No Known Allergies Allergy Verified 04/14/15 06:02 Home Medications Medication Instructions Recorded Confirmed Last Taken Type Acetaminophen [Tylenol Arthritis] 650 mg PO QID PRN #30 tablet.er 02/15/16 Unknown Rx Albuterol Sulfate [Proventil HFA] 6.7 gm INHALATION Q4-6H 02/15/16 02/15/16 History Insulin Glargine [Lantus VIAL] 30 units SQ QHS 02/15/16 02/15/16 02/15/16 History Lisinopril [Lisinopril] 40 mg PO BID 02/15/16 02/15/16 02/15/16 History Clonidine HCl [Catapres] 0.3 mg PO TID #90 tablet 06/15/16 Unknown Rx Lisinopril [Zestril] 40 mg PO BID #60 tablet 06/15/16 Unknown Rx Polyethylene Glycol 3350 [Miralax 17 gm PO QDAY PRN #10 packet 06/15/16 Unknown Rx 3350] Active Meds: Active Medications Aspirin (Aspirin) 300 mg SD DAILY AGUSTIN Last Admin: 09/03/16 09:10 Dose: 300 mg Clonidine HCl (Catapres) 0.3 mg PO Q8HR AGUSTIN Dextrose (D50w (25gm)) 50 ml IV PRN PRN PRN Reason: Hypoglycemia Nicardipine HCl 50 mg/ Sodium (Chloride) 250 mls @ 25 mls/hr IV TITR AGUSTIN; 5 MG/ HR PRN Reason: Protocol Last Titration: 09/03/16 05:10 Dose: 0 mg/hr, 0 mls/hr Labetalol HCl 200 mg/ Dextrose 200 mls @ 120 mls/hr IV TITR AGUSTIN; 2 MG/MIN PRN Reason: Protocol Last Admin: 09/03/16 09:02 Dose: 2 mg/min, 120 mls/hr Insulin Human Regular (Novolin R) 0 units SUB-Q Q6HR AGUSTIN PRN Reason: Protocol Lisinopril (Zestril) 40 mg PO BID AGUSTIN Ondansetron HCl (Zofran) 4 mg IV Q8H PRN PRN Reason: N/V unrelieved by Shelly Sodium Chloride (Sodium Chloride Flush Syringe 10 Ml) 10 ml IV PRN PRN PRN Reason: LINE FLUSH Physical Examination Vital signs: Vital Signs Temp Pulse Resp BP Pulse Ox 98.4 F 88 18 104/80 98 09/03/16 00:00 09/03/16 00:00 09/03/16 00:00 09/03/16 00:00 09/03/16 00:00 Results - Laboratory Findings CBC and BMP: 09/03/16 00:10 09/03/16 00:10 PT/INR, D-dimer PT 12.9 Sec. (12.2-14.9) 09/03/16 00:10 INR 0.98 (0.87-1.13) 09/03/16 00:10
[2016-09-03 12:01] LABS: Creatine Kinase MB 1.4 ng/mL (0.0-4.0)
[2016-09-03] MEDS: HumuLIN R SUB-Q SCH ×3 (13:00→18:19)
[2016-09-03] MEDS ORDERED: NON-FORMULARY (Clonidine Hcl [Catapres] 0.3 MG) PO SCH (14:00)
[2016-09-03] MEDS: CATAPRES PO SCH ×2 (14:05→21:29)
[2016-09-03] MEDS: ATIVAN IV PRN ×4 (15:00→23:15)
[2016-09-03 17:15] LABS: Amphetamine Screen,Urine PRESUMPTIVE NEGATIVE; Benzodiazepines Screen,Urine PRESUMPTIVE NEGATIVE; Cocaine Screen,Urine PRESUMPTIVE NEGATIVE; Opiate Screen,Urine PRESUMPTIVE NEGATIVE
[2016-09-03 17:30] LABS: Cannabinoid Screen,Urine PRESUMPTIVE POSITIVE; Methadone Screen,Urine PRESUMPTIVE POSITIVE
[2016-09-03] MEDS: APRESOLINE PO SCH ×2 (17:31→23:46)
[2016-09-03] MEDS: PEPCID FEEDTUBE SCH (17:32)
[2016-09-03 17:55] LABS: Bilirubin,Urine NEG (Negative); Blood,Urine MOD (Negative); Color,Urine Yellow (Yellow); Urobilinogen,Urine < 2.0 mg/dL (<2.0)
[2016-09-03] MEDS ORDERED: HALDOL ONE (17:56)
[2016-09-03] MEDS ORDERED: ATIVAN IV PRN (17:57)
[2016-09-03 18:03] LABS: Bacteria,Urine 1+ /HPF (Negative)
[2016-09-03] MEDS ORDERED: SODIUM BICARBONATE FEEDTUBE PRN ×2 (18:05→18:10)
[2016-09-03] MEDS ORDERED: PANCREAZE DR 10,500 UNIT FEEDTUBE PRN ×2 (18:05→18:10)
[2016-09-03] MEDS ORDERED: SIMPLE SYRUP FEEDTUBE PRN ×2 (18:10)
[2016-09-03] MEDS: ZESTRIL PO SCH (21:30)
[2016-09-03] MEDS: D5W IV SCH (22:39)
[2016-09-03] MEDS: NORMODYNE IV SCH (22:39)
[2016-09-03] MEDS: HALDOL IV PRN (23:50)
[2016-09-04] MEDS: ATIVAN IV PRN ×9 (00:45→21:45)
[2016-09-04 04:13] LABS: Basophils # (Auto) 0.1 K/mm3 (0.0-0.1); Basophils % (Auto) 0.7 % (0.0-1.8); Eosinophils % (Auto) 0.1 % (0.0-4.3); Hematocrit 31.2 % (30.3-42.9); Hemoglobin 9.7 gm/dl (10.1-14.3); Lymphocytes # (Auto) 1.2 K/mm3 (1.2-5.4); Lymphocytes % (Auto) 11.1 % (13.4-35.0); Mean Corpuscular HGB Conc 31 % (30-34); Mean Corpuscular Volume 72 fl (79-97); Monocytes # (Auto) 0.4 K/mm3 (0.0-0.8); Monocytes % (Auto) 3.8 % (0.0-7.3); Platelet Count 314 K/mm3 (140-440); Red Blood Count 4.31 M/mm3 (3.65-5.03); Red Cell Distribution Width 17.5 % (13.2-15.2)
[2016-09-04 04:37] LABS: BUN/Creatinine Ratio 7.05; Calcium 8.8 mg/dL (8.4-10.2); Chol/HDL Ratio 6.09 %
[2016-09-04 04:39] LABS: Mean Corpuscular Hemoglobin 23 pg (28-32)
[2016-09-04] MEDS: CATAPRES PO SCH ×3 (06:04→22:00)
[2016-09-04] MEDS: HumuLIN R SUB-Q SCH ×4 (06:05→18:59)
[2016-09-04] MEDS: APRESOLINE PO SCH ×3 (08:50→21:15)
[2016-09-04] MEDS: HALDOL IV PRN ×2 (09:49→18:45)
[2016-09-04] MEDS: PEPCID FEEDTUBE SCH (09:49)
[2016-09-04] MEDS: ASPIRIN PR SCH (09:49)
[2016-09-04] MEDS: ZESTRIL PO SCH ×2 (09:50→21:16)
[2016-09-04] MEDS: NORMODYNE IV SCH (11:25)
[2016-09-04] MEDS: D5W IV SCH (11:25)
--- NOTE | 2016-09-04 11:58 | Progress Note ---
Assessment and Plan Assessment and plan: Acute CVA. Continue neuro checks. Follow-up MRI/MRA, carotid Doppler and echocardiogram. Neurology consultation. PT/OT/ST. Accelerated Hypertension. Continue labetalol IV prn. Increase hydralazine and add labetalol by mouth. Hypokalemia. Replete potassium as needed. Diabetes type 2. Continue sliding-scale regular insulin and Accu-Cheks. Hyperlipidemia. Follow-up lipid profile and treat accordingly. Chronic kidney disease. The patient's creatinine May 2016 was 1.8. Patient appears to be at baseline. Asthma. Stable History Interval history: 46-year-old woman with a history of hypertension, diabetes, asthma, hyperlipidemia, chronic kidney disease and anxiety who was admitted for acute CVA and accelerated hypertension. Patient's blood pressure systolically on admission was noted be greater than 260. TPA was started but this was discontinued after 5 minutes because her blood pressure became uncontrolled. The TPA was not initiated again because the patient was outside the TPA window. Patient remains confused and combative requiring restraints. Patient currently with IV labetalol Hospitalist Physical - Constitutional Vitals: Temp Pulse Resp BP Pulse Ox 97.9 F 78 26 H 179/109 98 09/04/16 07:25 09/04/16 11:25 09/04/16 11:00 09/04/16 11:25 09/04/16 11:00 General appearance: Present: no acute distress, well-nourished - EENT Eyes: Present: PERRL, EOM intact ENT: hearing intact, clear oral mucosa, dentition normal - Neck Neck: Present: supple, normal ROM - Respiratory Respiratory effort: normal Respiratory: bilateral: CTA - Cardiovascular Rhythm: regular Heart Sounds: Present: S1 & S2. Absent: gallop, rub - Extremities Extremities: no ischemia, No edema, Full ROM - Abdominal General gastrointestinal: soft, non-tender, non-distended, normal bowel sounds - Integumentary Integumentary: Present: clear, warm, dry - Neurologic Neurologic: CNII-XII intact, moves all extremities Results - Labs CBC & Chem 7: 09/04/16 03:31 09/04/16 03:31 Labs: Laboratory Last Values WBC 10.5 K/mm3 (4.5-11.0) 09/04/16 03:31 RBC 4.31 M/mm3 (3.65-5.03) 09/04/16 03:31 Hgb 9.7 gm/dl (10.1-14.3) L D 09/04/16 03:31 Hct 31.2 % (30.3-42.9) D 09/04/16 03:31 MCV 72 fl (79-97) L 09/04/16 03:31 MCH 23 pg (28-32) L 09/04/16 03:31 MCHC 31 % (30-34) 09/04/16 03:31 RDW 17.5 % (13.2-15.2) H 09/04/16 03:31 Plt Count 314 K/mm3 (140-440) 09/04/16 03:31 Lymph % (Auto) 11.1 % (13.4-35.0) L 09/04/16 03:31 [place] % (Auto) 3.8 % (0.0-7.3) 09/04/16 03:31 Eos % (Auto) 0.1 % (0.0-4.3) 09/04/16 03:31 Baso % (Auto) 0.7 % (0.0-1.8) 09/04/16 03:31 Lymph # 1.2 K/mm3 (1.2-5.4) 09/04/16 03:31 [place] # 0.4 K/mm3 (0.0-0.8) 09/04/16 03:31 Eos # 0.0 K/mm3 (0.0-0.4) 09/04/16 03:31 Baso # 0.1 K/mm3 (0.0-0.1) 09/04/16 03:31 Add Manual Diff Complete 09/03/16 00:10 Total Counted 100 09/03/16 00:10 Seg Neutrophils % 84.3 % (40.0-70.0) H 09/04/16 03:31 Seg Neuts % (Manual) 43.0 % (40.0-70.0) 09/03/16 00:10 Band Neutrophils % 0 % 09/03/16 00:10 Lymphocytes % (Manual) 54.0 % (13.4-35.0) H 09/03/16 00:10 Reactive Lymphs % (Man) 0 % 09/03/16 00:10 Monocytes % (Manual) 2.0 % (0.0-7.3) 09/03/16 00:10 Eosinophils % (Manual) 1.0 % (0.0-4.3) 09/03/16 00:10 Basophils % (Manual) 0 % (0.0-1.8) 09/03/16 00:10 Metamyelocytes % 0 % 09/03/16 00:10 Myelocytes % 0 % 09/03/16 00:10 Promyelocytes % 0 % 09/03/16 00:10 Blast Cells % 0 % 09/03/16 00:10 Nucleated RBC % Not Reportable 09/03/16 00:10 Seg Neutrophils # 8.9 K/mm3 (1.8-7.7) H 09/04/16 03:31 Seg Neutrophils # Man 6.0 K/mm3 (1.8-7.7) 09/03/16 00:10 Band Neutrophils # 0.0 K/mm3 09/03/16 00:10 Lymphocytes # (Manual) 7.5 K/mm3 (1.2-5.4) H 09/03/16 00:10 Abs React Lymphs (Man) 0.0 K/mm3 09/03/16 00:10 Monocytes # (Manual) 0.3 K/mm3 (0.0-0.8) 09/03/16 00:10 Eosinophils # (Manual) 0.1 K/mm3 (0.0-0.4) 09/03/16 00:10 Basophils # (Manual) 0.0 K/mm3 (0.0-0.1) 09/03/16 00:10 Metamyelocytes # 0.0 K/mm3 09/03/16 00:10 Myelocytes # 0.0 K/mm3 09/03/16 00:10 Promyelocytes # 0.0 K/mm3 09/03/16 00:10 Blast Cells # 0.0 K/mm3 09/03/16 00:10 WBC Morphology Not Reportable 09/03/16 00:10 Hypersegmented Neuts Not Reportable 09/03/16 00:10 Hyposegmented Neuts Not Reportable 09/03/16 00:10 Hypogranular Neuts Not Reportable 09/03/16 00:10 Smudge Cells Not Reportable 09/03/16 00:10 Toxic Granulation Not Reportable 09/03/16 00:10 Toxic Vacuolation Not Reportable 09/03/16 00:10 Dohle Bodies Not Reportable 09/03/16 00:10 Pelger-Huet Anomaly Not Reportable 09/03/16 00:10 Jasmina Rods Not Reportable 09/03/16 00:10 Platelet Estimate Appears normal 09/03/16 00:10 Clumped Platelets Not Reportable 09/03/16 00:10 Plt Clumps, EDTA Not Reportable 09/03/16 00:10 Large Platelets Not Reportable 09/03/16 00:10 Giant Platelets Not Reportable 09/03/16 00:10 Platelet Satelliting Not Reportable 09/03/16 00:10 Plt Morphology Comment Not Reportable 09/03/16 00:10 RBC Morphology Not Reportable 09/03/16 00:10 Dimorphic RBCs Not Reportable 09/03/16 00:10 Polychromasia Not Reportable 09/03/16 00:10 Hypochromasia 1+ 09/03/16 00:10 Poikilocytosis Not Reportable 09/03/16 00:10 Anisocytosis Not Reportable 09/03/16 00:10 Microcytosis Not Reportable 09/03/16 00:10 Macrocytosis Not Reportable 09/03/16 00:10 Spherocytes Not Reportable 09/03/16 00:10 Pappenheimer Bodies Not Reportable 09/03/16 00:10 Sickle Cells Not Reportable 09/03/16 00:10 Target Cells Not Reportable 09/03/16 00:10 Tear Drop Cells Not Reportable 09/03/16 00:10 Ovalocytes Not Reportable 09/03/16 00:10 Helmet Cells Not Reportable 09/03/16 00:10 [place] Bodies Not Reportable 09/03/16 00:10 [place] Rings Not Reportable 09/03/16 00:10 Brule Cells Not Reportable 09/03/16 00:10 Bite Cells Not Reportable 09/03/16 00:10 Crenated Cell Not Reportable 09/03/16 00:10 Elliptocytes Not Reportable 09/03/16 00:10 Acanthocytes (Spur) Not Reportable 09/03/16 00:10 Rouleaux Not Reportable 09/03/16 00:10 Hemoglobin C Crystals Not Reportable 09/03/16 00:10 Schistocytes Not Reportable 09/03/16 00:10 Malaria parasites Not Reportable 09/03/16 00:10 Jun Bodies Not Reportable 09/03/16 00:10 Hem Pathologist Commnt No 09/03/16 00:10 PT 12.9 Sec. (12.2-14.9) 09/03/16 00:10 INR 0.98 (0.87-1.13) 09/03/16 00:10 APTT 29.0 Sec. (24.2-36.6) 09/03/16 00:10 Thrombin Time 16.8 Sec. (15.1-19.6) 09/03/16 00:10 POC ABG pH 7.452 (7.35-7.45) H 09/03/16 15:07 POC ABG pCO2 37.6 (35-45) 09/03/16 15:07 POC ABG pO2 101 (80-105) 09/03/16 15:07 POC ABG HCO3 26.3 09/03/16 15:07 POC ABG Total CO2 27 09/03/16 15:07 POC ABG O2 Sat 98 09/03/16 15:07 POC ABG Base Excess 2 09/03/16 15:07 FiO2 21 % 09/03/16 15:07 Sodium 135 mmol/L (137-145) L 09/04/16 03:31 Potassium 2.9 mmol/L (3.6-5.0) L* 09/04/16 03:31 Chloride 97.2 mmol/L (98-107) L 09/04/16 03:31 Carbon Dioxide 19 mmol/L (22-30) L 09/04/16 03:31 Anion Gap 22 mmol/L 09/04/16 03:31 BUN 12 mg/dL (7-17) 09/04/16 03:31 Creatinine 1.7 mg/dL (0.7-1.2) H 09/04/16 03:31 Estimated GFR 39 ml/min 09/04/16 03:31 BUN/Creatinine Ratio 7.05 % 09/04/16 03:31 Glucose 170 mg/dL (65-100) H 09/04/16 03:31 POC Glucose 165 (70-105) H 09/04/16 11:34 Lactic Acid 1.50 mmol/L (0.7-2.0) 09/03/16 17:15 Calcium 8.8 mg/dL (8.4-10.2) 09/04/16 03:31 Phosphorus 2.30 mg/dL (2.5-4.5) L 09/03/16 17:57 Magnesium 1.60 mg/dL (1.7-2.3) L 09/03/16 16:20 Total Creatine Kinase 67 units/L (30-135) 09/03/16 11:26 CK-MB (CK-2) 1.4 ng/mL (0.0-4.0) 09/03/16 11:26 CK-MB (CK-2) Rel Index 2.0 (0-4) 09/03/16 11:26 Troponin T < 0.010 ng/mL (0.00-0.029) 09/03/16 11:26 C-Reactive Protein 0.60 mg/dL (0.00-1.30) 09/03/16 17:15 Triglycerides 160 mg/dL (2-149) H 09/04/16 03:31 Cholesterol 189 mg/dL (50-199) 09/04/16 03:31 LDL Cholesterol Direct 126 mg/dL (50-130) 09/04/16 03:31 HDL Cholesterol 31 mg/dL (40-59) L 09/04/16 03:31 Cholesterol/HDL Ratio 6.09 % 09/04/16 03:31 HCG, Qual Negative (Negative) 09/03/16 00:10 Urine Color Yellow (Yellow) 09/03/16 15:11 Urine Turbidity Slightly-cloudy (Clear) 09/03/16 15:11 Urine pH 5.0 (5.0-7.0) 09/03/16 15:11 Ur Specific [place] 1.010 (1.003-1.030) 09/03/16 15:11 Urine Protein 100 mg/dl mg/dL (Negative) 09/03/16 15:11 Urine Glucose (UA) 150 mg/dL (Negative) 09/03/16 15:11 Urine Ketones Neg mg/dL (Negative) 09/03/16 15:11 Urine Blood Mod (Negative) 09/03/16 15:11 Urine Nitrite Neg (Negative) 09/03/16 15:11 Urine Bilirubin Neg (Negative) 09/03/16 15:11 Urine Urobilinogen < 2.0 mg/dL (<2.0) 09/03/16 15:11 Ur Leukocyte Esterase Lg (Negative) 09/03/16 15:11 Urine WBC (Auto) 5.0 /HPF (0.0-6.0) 09/03/16 15:11 Urine RBC (Auto) 1.0 /HPF (0.0-6.0) 09/03/16 15:11 Urine Bacteria (Auto) 1+ /HPF (Negative) 09/03/16 15:11 Urine Opiates Screen Presumptive negative 09/03/16 15:11 Urine Methadone Screen Presumptive positive 09/03/16 15:11 Ur Barbiturates Screen Presumptive positive 09/03/16 15:11 Ur Phencyclidine Scrn Presumptive negative 09/03/16 15:11 Ur Amphetamines Screen Presumptive negative 09/03/16 15:11 U Benzodiazepines Scrn Presumptive negative 09/03/16 15:11 Urine Cocaine Screen Presumptive negative 09/03/16 15:11 U Marijuana (THC) Screen Presumptive positive 09/03/16 15:11 Drugs of Abuse Note Disclamer 09/03/16 15:11 Blood Type A POSITIVE 09/03/16 00:10 Antibody Screen TNR 09/03/16 00:10 DELORIS Antibody Screen Negative 09/03/16 00:10
--- NOTE | 2016-09-04 17:47 | Progress Note ---
Assessment and Plan - Patient Problems (1) Acute CVA (cerebrovascular accident) Current Visit: Yes Status: Acute Plan to address problem: - out of tpA window - awaiting neurology evaluation - unable to get MRI done but still moving all extremities and no clinical deterioration - will increase scheduled hydralazine and wean off labetolo - continue aspiration precautions (2) Hypertensive emergency Current Visit: Yes Status: Acute Plan to address problem: - increase p.o. 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 : D Laterality: L Chronic kidney disease stage: C Plan to address problem: - continue SSI (5) Discharge planning issues Current Visit: Yes Status: Acute Plan to address problem: - she remains critically ill on life sustaining interventions including IV labetalol; at risk for further acute deterioration including and will be observed in the ICU overnight ...care plan discussed with brother at bedside ....30' CCT without overlap Subjective Date of service: 09/04/16 Principal diagnosis: Acute CVA; Acute Encephalopathy Interval history: Seen and examined at bedside; 24 hour events reviewed; nursing and respiratory care staff consulted; no adverse overnight events reported to me; resting in bed ; still intermittently agitated; unable to get MRI done yesterday and till now as she is still on IV labetolol and unable to use pump in MRI; no N/V/F/C Objective Vital Signs - 12hr 09/04/16 09/04/16 09/04/16 05:51 06:00 06:04 Temperature Pulse Rate 80 81 81 Pulse Rate [ From Monitor] Respiratory 29 H 30 H Rate Blood Pressure 173/114 169/89 173/114 O2 Sat by Pulse 99 98 Oximetry 09/04/16 09/04/16 09/04/16 06:11 06:21 06:31 Temperature Pulse Rate 81 99 H 103 H Pulse Rate [ From Monitor] Respiratory 29 H 28 H Rate Blood Pressure 169/89 219/167 219/167 O2 Sat by Pulse 99 98 100 Oximetry 09/04/16 09/04/16 09/04/16 06:41 06:51 07:01 Temperature Pulse Rate 98 H 77 Pulse Rate [ From Monitor] Respiratory 24 30 H 20 Rate Blood Pressure 201/118 198/111 186/99 O2 Sat by Pulse 99 97 99 Oximetry 09/04/16 09/04/16 09/04/16 07:11 07:21 07:25 Temperature 97.9 F Pulse Rate 81 87 Pulse Rate [ From Monitor] Respiratory 29 H 34 H Rate Blood Pressure 185/121 188/110 O2 Sat by Pulse 99 97 Oximetry 09/04/16 09/04/16 09/04/16 07:31 07:41 07:51 Temperature Pulse Rate 86 81 Pulse Rate [ From Monitor] Respiratory 28 H 31 H 24 Rate Blood Pressure 178/112 178/112 137/105 O2 Sat by Pulse 99 98 98 Oximetry 09/04/16 09/04/16 09/04/16 08:00 08:11 08:21 Temperature Pulse Rate 85 78 79 Pulse Rate [ From Monitor] Respiratory 28 H 17 27 H Rate Blood Pressure 209/117 209/117 O2 Sat by Pulse 98 99 96 Oximetry 09/04/16 09/04/16 09/04/16 08:30 08:41 08:50 Temperature Pulse Rate 94 H 84 87 Pulse Rate [ From Monitor] Respiratory 31 H Rate Blood Pressure 190/106 190/106 204/118 O2 Sat by Pulse 94 97 Oximetry 09/04/16 09/04/16 09/04/16 08:51 09:00 09:10 Temperature Pulse Rate 91 H 86 83 Pulse Rate [ From Monitor] Respiratory 28 H 29 H 19 Rate Blood Pressure 210/133 204/118 204/118 O2 Sat by Pulse 99 98 98 Oximetry 09/04/16 09/04/16 09/04/16 09:20 09:30 09:40 Temperature Pulse Rate 90 88 87 Pulse Rate [ From Monitor] Respiratory 24 26 H 22 Rate Blood Pressure 222/142 222/142 O2 Sat by Pulse 99 97 99 Oximetry 09/04/16 09/04/16 09/04/16 09:50 10:00 10:10 Temperature Pulse Rate 84 78 78 Pulse Rate [ From Monitor] Respiratory 16 37 H 24 Rate Blood Pressure 206/167 164/99 164/99 O2 Sat by Pulse 98 100 97 Oximetry 09/04/16 09/04/16 09/04/16 10:20 10:30 10:40 Temperature Pulse Rate 84 77 78 Pulse Rate [ From Monitor] Respiratory 20 27 H 29 H Rate Blood Pressure 108/73 162/87 162/87 O2 Sat by Pulse 98 97 97 Oximetry 09/04/16 09/04/16 09/04/16 10:50 11:00 11:10 Temperature Pulse Rate 76 77 Pulse Rate [ From Monitor] Respiratory 27 H 26 H 33 H Rate Blood Pressure 158/88 143/95 143/95 O2 Sat by Pulse 97 98 96 Oximetry 09/04/16 09/04/16 09/04/16 11:20 11:25 11:30 Temperature Pulse Rate 85 78 75 Pulse Rate [ From Monitor] Respiratory 23 28 H Rate Blood Pressure 179/109 179/109 172/98 O2 Sat by Pulse 98 96 Oximetry 09/04/16 09/04/16 09/04/16 11:40 11:50 12:00 Temperature 97.6 F Pulse Rate 83 85 83 Pulse Rate [ 82 From Monitor] Respiratory 20 24 19 Rate Blood Pressure 179/109 213/158 213/158 O2 Sat by Pulse 99 98 100 Oximetry 09/04/16 09/04/16 09/04/16 12:10 12:20 12:30 Temperature Pulse Rate 83 83 84 Pulse Rate [ From Monitor] Respiratory 18 14 25 H Rate Blood Pressure 206/180 174/115 205/160 O2 Sat by Pulse 98 99 98 Oximetry 09/04/16 09/04/16 09/04/16 12:40 12:50 13:00 Temperature Pulse Rate 85 87 86 Pulse Rate [ From Monitor] Respiratory 14 23 29 H Rate Blood Pressure 205/160 163/142 179/109 O2 Sat by Pulse 100 98 97 Oximetry 09/04/16 09/04/16 09/04/16 13:01 13:10 13:20 Temperature Pulse Rate 86 84 86 Pulse Rate [ From Monitor] Respiratory 22 25 H Rate Blood Pressure 163/142 179/109 185/104 O2 Sat by Pulse 96 96 Oximetry 09/04/16 09/04/16 09/04/16 13:30 13:40 13:50 Temperature Pulse Rate 85 81 82 Pulse Rate [ From Monitor] Respiratory 30 H 37 H 22 Rate Blood Pressure 185/104 151/86 159/88 O2 Sat by Pulse 96 96 97 Oximetry 09/04/16 09/04/16 09/04/16 14:00 14:10 14:20 Temperature Pulse Rate 82 82 82 Pulse Rate [ From Monitor] Respiratory 18 16 14 Rate Blood Pressure 145/90 145/90 138/99 O2 Sat by Pulse 98 97 97 Oximetry 09/04/16 09/04/16 09/04/16 14:30 14:40 14:50 Temperature Pulse Rate 83 83 80 Pulse Rate [ From Monitor] Respiratory 21 21 15 Rate Blood Pressure 138/99 144/93 164/95 O2 Sat by Pulse 99 98 97 Oximetry 09/04/16 09/04/16 09/04/16 15:00 15:10 15:20 Temperature Pulse Rate 81 80 Pulse Rate [ From Monitor] Respiratory 21 19 24 Rate Blood Pressure 164/95 207/183 154/104 O2 Sat by Pulse 98 97 98 Oximetry 09/04/16 09/04/16 09/04/16 15:30 15:40 15:50 Temperature Pulse Rate 69 Pulse Rate [ From Monitor] Respiratory 14 18 14 Rate Blood Pressure 154/104 151/91 149/92 O2 Sat by Pulse 97 98 99 Oximetry 09/04/16 09/04/16 09/04/16 16:00 16:10 16:20 Temperature 97.8 F Pulse Rate 79 77 77 Pulse Rate [ 86 From Monitor] Respiratory 11 L 13 17 Rate Blood Pressure 149/92 161/108 156/120 O2 Sat by Pulse 98 98 97 Oximetry 09/04/16 09/04/16 09/04/16 16:30 16:40 16:50 Temperature Pulse Rate 68 67 70 Pulse Rate [ From Monitor] Respiratory 23 19 34 H Rate Blood Pressure 139/84 139/84 147/83 O2 Sat by Pulse 98 97 97 Oximetry 09/04/16 09/04/16 09/04/16 17:00 17:10 17:20 Temperature Pulse Rate 68 79 Pulse Rate [ From Monitor] Respiratory 19 42 H 18 Rate Blood Pressure 140/78 140/78 141/75 O2 Sat by Pulse 99 98 95 Oximetry Constitutional: no acute distress, other (sedated) Eyes: non-icteric ENT: oropharynx moist Neck: supple, no lymphadenopathy Effort: normal Ascultation: Bilateral: clear Cardiovascular: regular rate and rhythm Gastrointestinal: normoactive bowel sounds, soft, non-tender, non-distended Integumentary: normal Extremities: no cyanosis, no edema, pulses normal, no ischemia or petechiae Neurologic: non-focal exam (grossly), pupils equal and round, motor strength normal and Psychiatric: other (unable to assess) CBC and BMP: 09/04/16 03:31 09/04/16 03:31 ABG, PT/INR, D-dimer: ABG POC ABG pH 7.452 (7.35-7.45) H 09/03/16 15:07 POC ABG pCO2 37.6 (35-45) 09/03/16 15:07 POC ABG pO2 101 (80-105) 09/03/16 15:07 POC ABG HCO3 26.3 09/03/16 15:07 POC ABG Total CO2 27 09/03/16 15:07 POC ABG O2 Sat 98 09/03/16 15:07 PT/INR, D-dimer PT 12.9 Sec. (12.2-14.9) 09/03/16 00:10 INR 0.98 (0.87-1.13) 09/03/16 00:10 Abnormal lab findings: Abnormal Labs 09/03/16 09/03/16 09/03/16 12:12 15:07 16:20 Hgb MCV MCH RDW Lymph % (Auto) Seg Neutrophils % Seg Neutrophils # POC ABG pH 7.452 H Sodium Potassium Chloride Carbon Dioxide Creatinine Glucose POC Glucose 178 H Phosphorus 2.20 L Magnesium 1.60 L Triglycerides HDL Cholesterol 09/03/16 09/03/16 09/03/16 17:57 17:58 23:50 Hgb MCV MCH RDW Lymph % (Auto) Seg Neutrophils % Seg Neutrophils # POC ABG pH Sodium Potassium Chloride Carbon Dioxide Creatinine Glucose POC Glucose 162 H 145 H Phosphorus 2.30 L Magnesium Triglycerides HDL Cholesterol 09/04/16 09/04/16 09/04/16 03:31 03:31 05:42 Hgb 9.7 L D MCV 72 L MCH 23 L RDW 17.5 H Lymph % (Auto) 11.1 L Seg Neutrophils % 84.3 H Seg Neutrophils # 8.9 H POC ABG pH Sodium 135 L Potassium 2.9 L* Chloride 97.2 L Carbon Dioxide 19 L Creatinine 1.7 H Glucose 170 H POC Glucose 152 H Phosphorus Magnesium Triglycerides 160 H HDL Cholesterol 31 L 09/04/16 11:34 Hgb MCV MCH RDW Lymph % (Auto) Seg Neutrophils % Seg Neutrophils # POC ABG pH Sodium Potassium Chloride Carbon Dioxide Creatinine Glucose POC Glucose 165 H Phosphorus Magnesium Triglycerides HDL Cholesterol
[2016-09-04] MEDS: NORMODYNE PO SCH (21:15)
[2016-09-05 04:42] LABS: Hematocrit 33.4 % (30.3-42.9); Hemoglobin 10.4 gm/dl (10.1-14.3); Mean Corpuscular HGB Conc 31 % (30-34); Mean Corpuscular Hemoglobin 23 pg (28-32); Mean Corpuscular Volume 76 fl (79-97); Platelet Count 326 K/mm3 (140-440); Red Blood Count 4.42 M/mm3 (3.65-5.03); Red Cell Distribution Width 17.8 % (13.2-15.2)
[2016-09-05 05:00] LABS: BUN/Creatinine Ratio 8.88; Calcium 8.8 mg/dL (8.4-10.2)
[2016-09-05] MEDS: ATIVAN IV PRN ×3 (05:00→23:31)
[2016-09-05] MEDS: HALDOL IV PRN ×2 (05:01→13:45)
[2016-09-05] MEDS: APRESOLINE PO SCH ×3 (05:02→23:31)
[2016-09-05] MEDS: CATAPRES PO SCH ×4 (05:13→22:00)
[2016-09-05] MEDS: HumuLIN R SUB-Q SCH ×3 (06:25→13:14)
[2016-09-05] MEDS: PEPCID FEEDTUBE SCH (10:10)
[2016-09-05] MEDS: NORMODYNE PO SCH ×2 (10:10→22:00)
[2016-09-05] MEDS: ASPIRIN PR SCH (10:10)
[2016-09-05] MEDS: ZESTRIL PO SCH ×2 (10:11→23:32)
--- NOTE | 2016-09-05 10:22 | Consultation ---
History of Present Illness - Reason for Consult Consult date: 09/05/16 Evaluate for Acute IRU - History of Present Illness 46 y.o. female who presented due to acute onset of aphasia; noted to have severely elevated blood pressure on admission. Pt initiated on tPA, however, this was discontinued due to uncontrolled BP; unable to be restarted. CT brain noted to be negative; MRI brain is pending as this was unable to be completed due to agitation and use of IV labetalol for BP control. Per nursing, pt has been observed moving all extremities since admission; however, she remains agitated and is requiring prn Ativan and Haldol. She is currently sedated and does not open her eyes; has reportedly not been following commands. BP is better controlled on today. Consult placed for post acute placement recommendations. History is per chart review and per nursing due to altered mental status. Past History Past Medical History: diabetes, hypertension Past Surgical History: cholecystectomy (per chart review) Social history: other (per chart review, family denied any smoking or alcohol history on admission) Family history: hypertension (per chart review) Medications and Allergies Allergies Allergy/AdvReac Type Severity Reaction Status Date / Time No Known Allergies Allergy Verified 04/14/15 06:02 Home Medications Medication Instructions Recorded Confirmed Last Taken Type Acetaminophen [Tylenol Arthritis] 650 mg PO QID PRN #30 tablet.er 02/15/16 Unknown Rx Albuterol Sulfate [Proventil HFA] 6.7 gm INHALATION Q4-6H 02/15/16 02/15/16 History Insulin Glargine [Lantus VIAL] 30 units SQ QHS 02/15/16 02/15/16 02/15/16 History Lisinopril [Lisinopril] 40 mg PO BID 02/15/16 02/15/16 02/15/16 History Clonidine HCl [Catapres] 0.3 mg PO TID #90 tablet 06/15/16 Unknown Rx Lisinopril [Zestril] 40 mg PO BID #60 tablet 06/15/16 Unknown Rx Polyethylene Glycol 3350 [Miralax 17 gm PO QDAY PRN #10 packet 06/15/16 Unknown Rx 3350] Active Meds: Active Medications Lipase/Protease/Amylase (Mary Reza 10,500 Unit) 1 each FEEDTUBE PRN PRN PRN Reason: For Clogged Feeding Tube Aspirin (Aspirin) 300 mg CO DAILY [facility] Last Admin: 09/05/16 10:10 Dose: 300 mg Clonidine HCl (Catapres) 0.3 mg PO Q8HR [facility] Last Admin: 09/05/16 05:14 Dose: 0.3 mg Dextrose (D50w (25gm)) 50 gm IV PRN PRN PRN Reason: hypoglycemia Famotidine (Pepcid) 20 mg FEEDTUBE QDAY [facility] Last Admin: 09/05/16 10:10 Dose: 20 mg Haloperidol Lactate (Haldol) 5 mg IV Q6H PRN PRN Reason: Unrespon. to mult. doses BZD's Last Admin: 09/05/16 05:01 Dose: 5 mg Hydralazine HCl (Apresoline) 100 mg PO Q8HR [facility] Last Admin: 09/05/16 05:02 Dose: 100 mg Nicardipine HCl 50 mg/ Sodium (Chloride) 250 mls @ 25 mls/hr IV TITR AGUSTIN; 5 MG/ HR PRN Reason: Protocol Last Titration: 09/03/16 05:10 Dose: 0 mg/hr, 0 mls/hr Labetalol HCl 400 mg/ Dextrose 400 mls @ 120 mls/hr IV TITR AGUSTIN; 2 MG/MIN PRN Reason: Protocol Last Admin: 09/04/16 11:25 Dose: 2 mg/min, 120 mls/hr Insulin Human Regular (Novolin R) 0 units SUB-Q Q6HR AGUSTIN PRN Reason: Protocol Last Admin: 09/05/16 06:25 Dose: 2 units Labetalol HCl (Normodyne) 200 mg PO BID [facility] Last Admin: 09/05/16 10:10 Dose: 200 mg Lisinopril (Zestril) 40 mg PO BID [facility] Last Admin: 09/05/16 10:11 Dose: 40 mg Lorazepam (Ativan) 2 mg IV Q1H PRN PRN Reason: Agitation Last Admin: 09/04/16 09:49 Dose: 2 mg Lorazepam (Ativan) 4 mg IV Q1H PRN PRN Reason: CIWA-Ar 16-25 Last Admin: 09/05/16 05:00 Dose: 4 mg Lorazepam (Ativan) 4 mg IV Q15MIN PRN PRN Reason: CIWA-Ar >25 Stop: 09/08/16 17:58 Ondansetron HCl (Zofran) 4 mg IV Q8H PRN PRN Reason: N/V unrelieved by Reglan Simple Syrup (Simple Syrup) 15 ml FEEDTUBE PRN PRN PRN Reason: Hypoglycemia Simple Syrup (Simple Syrup) 30 ml FEEDTUBE PRN PRN PRN Reason: Hypoglycemia Sodium Bicarbonate (Sodium Bicarbonate) 325 mg FEEDTUBE PRN PRN PRN Reason: For Clogged Feeding Tube Sodium Chloride (Sodium Chloride Flush Syringe 10 Ml) 10 ml IV PRN PRN PRN Reason: LINE FLUSH Review of Systems ROS unobtainable: due to mental status (gutierrez is in place) Exam - Constitutional Vitals: Vital Signs - 12hr 09/04/16 09/04/16 09/04/16 22:20 22:30 22:40 Temperature Pulse Rate 77 Pulse Rate [ From Monitor] Pulse Rate [ Left Dorsalis Pedis] Pulse Rate [ Left Radial] Pulse Rate [ Right Dorsalis Pedis] Pulse Rate [ Right Radial] Respiratory 18 16 36 H Rate Blood Pressure 117/72 126/73 126/73 O2 Sat by Pulse 94 95 93 Oximetry 09/04/16 09/04/16 09/04/16 22:50 23:00 23:10 Temperature Pulse Rate 77 71 68 Pulse Rate [ From Monitor] Pulse Rate [ Left Dorsalis Pedis] Pulse Rate [ Left Radial] Pulse Rate [ Right Dorsalis Pedis] Pulse Rate [ Right Radial] Respiratory 17 35 H 34 H Rate Blood Pressure 126/73 128/72 128/72 O2 Sat by Pulse 95 94 95 Oximetry 09/04/16 09/04/16 09/04/16 23:20 23:30 23:40 Temperature Pulse Rate 75 Pulse Rate [ From Monitor] Pulse Rate [ Left Dorsalis Pedis] Pulse Rate [ Left Radial] Pulse Rate [ Right Dorsalis Pedis] Pulse Rate [ Right Radial] Respiratory 21 11 L 17 Rate Blood Pressure 128/72 128/72 133/93 O2 Sat by Pulse 98 95 96 Oximetry 09/04/16 09/05/16 09/05/16 23:50 00:00 00:06 Temperature 97.1 F L Pulse Rate 77 77 77 Pulse Rate [ From Monitor] Pulse Rate [ Left Dorsalis Pedis] Pulse Rate [ Left Radial] Pulse Rate [ Right Dorsalis Pedis] Pulse Rate [ Right Radial] Respiratory 28 H 13 16 Rate Blood Pressure 133/93 133/93 132/110 O2 Sat by Pulse 96 97 97 Oximetry 09/05/16 09/05/16 09/05/16 00:10 00:20 00:30 Temperature Pulse Rate 76 68 79 Pulse Rate [ From Monitor] Pulse Rate [ Left Dorsalis Pedis] Pulse Rate [ Left Radial] Pulse Rate [ Right Dorsalis Pedis] Pulse Rate [ Right Radial] Respiratory 13 21 19 Rate Blood Pressure 132/110 132/110 167/101 O2 Sat by Pulse 97 96 97 Oximetry 09/05/16 09/05/16 09/05/16 00:40 00:50 01:00 Temperature Pulse Rate 76 78 80 Pulse Rate [ From Monitor] Pulse Rate [ Left Dorsalis Pedis] Pulse Rate [ Left Radial] Pulse Rate [ Right Dorsalis Pedis] Pulse Rate [ Right Radial] Respiratory 19 15 11 L Rate Blood Pressure 167/101 167/101 167/101 O2 Sat by Pulse 97 97 97 Oximetry 09/05/16 09/05/16 09/05/16 01:10 01:20 01:30 Temperature Pulse Rate 69 70 Pulse Rate [ From Monitor] Pulse Rate [ Left Dorsalis Pedis] Pulse Rate [ Left Radial] Pulse Rate [ Right Dorsalis Pedis] Pulse Rate [ Right Radial] Respiratory 14 34 H 34 H Rate Blood Pressure 157/88 157/88 162/95 O2 Sat by Pulse 97 96 97 Oximetry 09/05/16 09/05/16 09/05/16 01:40 01:50 02:00 Temperature Pulse Rate 69 72 74 Pulse Rate [ From Monitor] Pulse Rate [ Left Dorsalis Pedis] Pulse Rate [ Left Radial] Pulse Rate [ Right Dorsalis Pedis] Pulse Rate [ Right Radial] Respiratory 34 H 32 H 29 H Rate Blood Pressure 162/95 162/95 168/100 O2 Sat by Pulse 98 98 97 Oximetry 09/05/16 09/05/16 09/05/16 02:10 02:20 02:30 Temperature Pulse Rate 66 70 73 Pulse Rate [ From Monitor] Pulse Rate [ Left Dorsalis Pedis] Pulse Rate [ Left Radial] Pulse Rate [ Right Dorsalis Pedis] Pulse Rate [ Right Radial] Respiratory 32 H 32 H 32 H Rate Blood Pressure 168/100 168/100 135/90 O2 Sat by Pulse 99 98 98 Oximetry 09/05/16 09/05/1609/05/17 02:40 02:50 03:00 Temperature Pulse Rate 67 68 Pulse Rate [ From Monitor] Pulse Rate [ Left Dorsalis Pedis] Pulse Rate [ Left Radial] Pulse Rate [ Right Dorsalis Pedis] Pulse Rate [ Right Radial] Respiratory 32 H 33 H 21 Rate Blood Pressure 135/90 135/90 135/90 O2 Sat by Pulse 99 95 97 Oximetry 09/05/16 09/05/16 09/05/16 03:10 03:20 03:30 Temperature Pulse Rate 85 71 79 Pulse Rate [ From Monitor] Pulse Rate [ Left Dorsalis Pedis] Pulse Rate [ Left Radial] Pulse Rate [ Right Dorsalis Pedis] Pulse Rate [ Right Radial] Respiratory 19 21 37 H Rate Blood Pressure 174/103 174/103 174/103 O2 Sat by Pulse 98 98 97 Oximetry 09/05/16 09/05/16 09/05/16 03:40 03:50 04:00 Temperature 97.9 F Pulse Rate 69 73 78 Pulse Rate [ 72 From Monitor] Pulse Rate [ 72 Left Dorsalis Pedis] Pulse Rate [ 72 Left Radial] Pulse Rate [ 72 Right Dorsalis Pedis] Pulse Rate [ 72 Right Radial] Respiratory 32 H 37 H 36 H Rate Blood Pressure 166/109 166/109 166/109 O2 Sat by Pulse 97 97 97 Oximetry 09/05/16 09/05/16 09/05/16 04:10 04:20 04:30 Temperature Pulse Rate 79 73 80 Pulse Rate [ From Monitor] Pulse Rate [ Left Dorsalis Pedis] Pulse Rate [ Left Radial] Pulse Rate [ Right Dorsalis Pedis] Pulse Rate [ Right Radial] Respiratory 19 35 H 17 Rate Blood Pressure 166/109 166/109 166/109 O2 Sat by Pulse 97 97 98 Oximetry 09/05/16 09/05/16 09/05/16 04:40 04:50 05:00 Temperature Pulse Rate 70 76 76 Pulse Rate [ From Monitor] Pulse Rate [ Left Dorsalis Pedis] Pulse Rate [ Left Radial] Pulse Rate [ Right Dorsalis Pedis] Pulse Rate [ Right Radial] Respiratory 25 H 38 H 28 H Rate Blood Pressure 224/118 225/123 225/123 O2 Sat by Pulse 97 98 95 Oximetry 09/05/16 09/05/16 09/05/16 05:02 05:10 05:13 Temperature Pulse Rate 73 67 71 Pulse Rate [ From Monitor] Pulse Rate [ Left Dorsalis Pedis] Pulse Rate [ Left Radial] Pulse Rate [ Right Dorsalis Pedis] Pulse Rate [ Right Radial] Respiratory 29 H Rate Blood Pressure 225/123 183/106 183/106 O2 Sat by Pulse 97 Oximetry 09/05/16 09/05/16 09/05/16 05:14 05:20 05:30 Temperature Pulse Rate 71 71 80 Pulse Rate [ From Monitor] Pulse Rate [ Left Dorsalis Pedis] Pulse Rate [ Left Radial] Pulse Rate [ Right Dorsalis Pedis] Pulse Rate [ Right Radial] Respiratory 34 H 35 H Rate Blood Pressure 183/106 183/106 183/106 O2 Sat by Pulse 96 96 Oximetry 09/05/16 09/05/16 09/05/16 05:40 05:50 06:00 Temperature Pulse Rate 88 88 88 Pulse Rate [ From Monitor] Pulse Rate [ Left Dorsalis Pedis] Pulse Rate [ Left Radial] Pulse Rate [ Right Dorsalis Pedis] Pulse Rate [ Right Radial] Respiratory 23 20 12 Rate Blood Pressure 183/106 183/106 183/106 O2 Sat by Pulse 97 99 96 Oximetry 09/05/16 09/05/16 09/05/16 06:30 07:00 07:30 Temperature Pulse Rate 85 82 71 Pulse Rate [ From Monitor] Pulse Rate [ Left Dorsalis Pedis] Pulse Rate [ Left Radial] Pulse Rate [ Right Dorsalis Pedis] Pulse Rate [ Right Radial] Respiratory 25 H 42 H 33 H Rate Blood Pressure 148/91 136/76 119/81 O2 Sat by Pulse 98 88 95 Oximetry 09/05/16 09/05/16 09/05/16 08:00 08:30 09:00 Temperature 97 F L Pulse Rate 69 69 74 Pulse Rate [ From Monitor] Pulse Rate [ Left Dorsalis Pedis] Pulse Rate [ Left Radial] Pulse Rate [ Right Dorsalis Pedis] Pulse Rate [ Right Radial] Respiratory 16 31 H 29 H Rate Blood Pressure 117/72 123/77 155/90 O2 Sat by Pulse 98 100 100 Oximetry 09/05/16 09/05/16 09/05/16 09:30 10:00 10:10 Temperature Pulse Rate 77 80 77 Pulse Rate [ From Monitor] Pulse Rate [ Left Dorsalis Pedis] Pulse Rate [ Left Radial] Pulse Rate [ Right Dorsalis Pedis] Pulse Rate [ Right Radial] Respiratory 19 25 H Rate Blood Pressure 155/90 149/89 155/92 O2 Sat by Pulse 99 100 Oximetry 09/05/16 10:11 Temperature Pulse Rate 77 Pulse Rate [ From Monitor] Pulse Rate [ Left Dorsalis Pedis] Pulse Rate [ Left Radial] Pulse Rate [ Right Dorsalis Pedis] Pulse Rate [ Right Radial] Respiratory Rate Blood Pressure 155/92 O2 Sat by Pulse Oximetry General appearance: no acute distress (Dobhoff tube in place), other (does not open eyes to name or stimulation; does not follow commands) - Respiratory Respiratory effort: normal Respiratory: bilateral: CTA - Cardiovascular Rhythm: regular Heart Sounds: Present: S1 & S2 - Extremities Extremities: No edema Extremity abnormal: other (in 4 point restraints) - Gastrointestinal General gastrointestinal: Present: soft, normal bowel sounds - Integumentary Integumentary: Present: clear - Neurologic Neurologic: other (will occasionally move extremites to stimulation, however, does not follow commands) - Psychiatric Psychiatric: other (sedated) - Allied health notes Allied health notes reviewed: PT (unable to complete evaluation due to agitation ; in 4 point restraints), OT (totalA for agitation; significant cognitive deficits noted, decreased alertness) - Labs CBC & Chem 7: 09/05/16 04:05 09/05/16 04:05 Labs: Laboratory Results - last 72 hr 09/03/16 09/03/16 09/03/16 05:04 11:26 12:12 WBC RBC Hgb Hct MCV MCH MCHC RDW Plt Count Lymph % (Auto) [place] % (Auto) Eos % (Auto) Baso % (Auto) Lymph # [place] # Eos # Baso # Seg Neutrophils % Seg Neutrophils # POC ABG pH POC ABG pCO2 POC ABG pO2 POC ABG HCO3 POC ABG Total CO2 POC ABG O2 Sat POC ABG Base Excess FiO2 Sodium Potassium Chloride Carbon Dioxide Anion Gap BUN Creatinine Estimated GFR BUN/Creatinine Ratio Glucose POC Glucose 178 H Lactic Acid Calcium Phosphorus Magnesium Total Creatine Kinase 38 67 CK-MB (CK-2) 1.2 1.4 CK-MB (CK-2) Rel Index 3.1 2.0 Troponin T < 0.010 < 0.010 C-Reactive Protein Triglycerides Cholesterol LDL Cholesterol Direct HDL Cholesterol Cholesterol/HDL Ratio Urine Color Urine Turbidity Urine pH Ur Specific [place] Urine Protein Urine Glucose (UA) Urine Ketones Urine Blood Urine Nitrite Urine Bilirubin Urine Urobilinogen Ur Leukocyte Esterase Urine WBC (Auto) Urine RBC (Auto) Urine Bacteria (Auto) Urine Opiates Screen Urine Methadone Screen Ur Barbiturates Screen Ur Phencyclidine Scrn Ur Amphetamines Screen U Benzodiazepines Scrn Urine Cocaine Screen U Marijuana (THC) Screen Drugs of Abuse Note 09/03/16 09/03/16 09/03/16 15:07 15:11 15:11 WBC RBC Hgb Hct MCV MCH MCHC RDW Plt Count Lymph % (Auto) [place] % (Auto) Eos % (Auto) Baso % (Auto) Lymph # [place] # Eos # Baso # Seg Neutrophils % Seg Neutrophils # POC ABG pH 7.452 H POC ABG pCO2 37.6 POC ABG pO2 101 POC ABG HCO3 26.3 POC ABG Total CO2 27 POC ABG O2 Sat 98 POC ABG Base Excess 2 FiO2 21 Sodium Potassium Chloride Carbon Dioxide Anion Gap BUN Creatinine Estimated GFR BUN/Creatinine Ratio Glucose POC Glucose Lactic Acid Calcium Phosphorus Magnesium Total Creatine Kinase CK-MB (CK-2) CK-MB (CK-2) Rel Index Troponin T C-Reactive Protein Triglycerides Cholesterol LDL Cholesterol Direct HDL Cholesterol Cholesterol/HDL Ratio Urine Color Yellow Urine Turbidity Slightly-cloudy Urine pH 5.0 Ur Specific [place] 1.010 Urine Protein 100 mg/dl Urine Glucose (UA) 150 Urine Ketones Neg Urine Blood Mod Urine Nitrite Neg Urine Bilirubin Neg Urine Urobilinogen < 2.0 Ur Leukocyte Esterase Lg Urine WBC (Auto) 5.0 Urine RBC (Auto) 1.0 Urine Bacteria (Auto) 1+ Urine Opiates Screen Presumptive negative Urine Methadone Screen Presumptive positive Ur Barbiturates Screen Presumptive positive Ur Phencyclidine Scrn Presumptive negative Ur Amphetamines Screen Presumptive negative U Benzodiazepines Scrn Presumptive negative Urine Cocaine Screen Presumptive negative U Marijuana (THC) Screen Presumptive positive Drugs of Abuse Note Disclamer 09/03/16 09/03/16 09/03/16 16:20 17:15 17:15 WBC RBC Hgb Hct MCV MCH MCHC RDW Plt Count Lymph % (Auto) [place] % (Auto) Eos % (Auto) Baso % (Auto) Lymph # [place] # Eos # Baso # Seg Neutrophils % Seg Neutrophils # POC ABG pH POC ABG pCO2 POC ABG pO2 POC ABG HCO3 POC ABG Total CO2 POC ABG O2 Sat POC ABG Base Excess FiO2 Sodium Potassium Chloride Carbon Dioxide Anion Gap BUN Creatinine Estimated GFR BUN/Creatinine Ratio Glucose POC Glucose Lactic Acid 1.50 Calcium Phosphorus 2.20 L Magnesium 1.60 L Total Creatine Kinase CK-MB (CK-2) CK-MB (CK-2) Rel Index Troponin T C-Reactive Protein 0.60 Triglycerides Cholesterol LDL Cholesterol Direct HDL Cholesterol Cholesterol/HDL Ratio Urine Color Urine Turbidity Urine pH Ur Specific [place] Urine Protein Urine Glucose (UA) Urine Ketones Urine Blood Urine Nitrite Urine Bilirubin Urine Urobilinogen Ur Leukocyte Esterase Urine WBC (Auto) Urine RBC (Auto) Urine Bacteria (Auto) Urine Opiates Screen Urine Methadone Screen Ur Barbiturates Screen Ur Phencyclidine Scrn Ur Amphetamines Screen U Benzodiazepines Scrn Urine Cocaine Screen U Marijuana (THC) Screen Drugs of Abuse Note 09/03/16 09/03/16 09/03/16 17:57 17:58 23:50 WBC RBC Hgb Hct MCV MCH MCHC RDW Plt Count Lymph % (Auto) [place] % (Auto) Eos % (Auto) Baso % (Auto) Lymph # [place] # Eos # Baso # Seg Neutrophils % Seg Neutrophils # POC ABG pH POC ABG pCO2 POC ABG pO2 POC ABG HCO3 POC ABG Total CO2 POC ABG O2 Sat POC ABG Base Excess FiO2 Sodium Potassium Chloride Carbon Dioxide Anion Gap BUN Creatinine Estimated GFR BUN/Creatinine Ratio Glucose POC Glucose 162 H 145 H Lactic Acid Calcium Phosphorus 2.30 L Magnesium Total Creatine Kinase CK-MB (CK-2) CK-MB (CK-2) Rel Index Troponin T C-Reactive Protein Triglycerides Cholesterol LDL Cholesterol Direct HDL Cholesterol Cholesterol/HDL Ratio Urine Color Urine Turbidity Urine pH Ur Specific [place] Urine Protein Urine Glucose (UA) Urine Ketones Urine Blood Urine Nitrite Urine Bilirubin Urine Urobilinogen Ur Leukocyte Esterase Urine WBC (Auto) Urine RBC (Auto) Urine Bacteria (Auto) Urine Opiates Screen Urine Methadone Screen Ur Barbiturates Screen Ur Phencyclidine Scrn Ur Amphetamines Screen U Benzodiazepines Scrn Urine Cocaine Screen U Marijuana (THC) Screen Drugs of Abuse Note 09/04/16 09/04/16 09/04/16 03:31 03:31 05:42 WBC 10.5 RBC 4.31 Hgb 9.7 L D Hct 31.2 D MCV 72 L MCH 23 L MCHC 31 RDW 17.5 H Plt Count 314 Lymph % (Auto) 11.1 L [place] % (Auto) 3.8 Eos % (Auto) 0.1 Baso % (Auto) 0.7 Lymph # 1.2 [place] # 0.4 Eos # 0.0 Baso # 0.1 Seg Neutrophils % 84.3 H Seg Neutrophils # 8.9 H POC ABG pH POC ABG pCO2 POC ABG pO2 POC ABG HCO3 POC ABG Total CO2 POC ABG O2 Sat POC ABG Base Excess FiO2 Sodium 135 L Potassium 2.9 L* Chloride 97.2 L Carbon Dioxide 19 L Anion Gap 22 BUN 12 Creatinine 1.7 H Estimated GFR 39 BUN/Creatinine Ratio 7.05 Glucose 170 H POC Glucose 152 H Lactic Acid Calcium 8.8 Phosphorus Magnesium Total Creatine Kinase CK-MB (CK-2) CK-MB (CK-2) Rel Index Troponin T C-Reactive Protein Triglycerides 160 H Cholesterol 189 LDL Cholesterol Direct 126 HDL Cholesterol 31 L Cholesterol/HDL Ratio 6.09 Urine Color Urine Turbidity Urine pH Ur Specific [place] Urine Protein Urine Glucose (UA) Urine Ketones Urine Blood Urine Nitrite Urine Bilirubin Urine Urobilinogen Ur Leukocyte Esterase Urine WBC (Auto) Urine RBC (Auto) Urine Bacteria (Auto) Urine Opiates Screen Urine Methadone Screen Ur Barbiturates Screen Ur Phencyclidine Scrn Ur Amphetamines Screen U Benzodiazepines Scrn Urine Cocaine Screen U Marijuana (THC) Screen Drugs of Abuse Note 09/04/16 09/04/16 09/04/16 11:34 17:46 23:29 WBC RBC Hgb Hct MCV MCH MCHC RDW Plt Count Lymph % (Auto) [place] % (Auto) Eos % (Auto) Baso % (Auto) Lymph # [place] # Eos # Baso # Seg Neutrophils % Seg Neutrophils # POC ABG pH POC ABG pCO2 POC ABG pO2 POC ABG HCO3 POC ABG Total CO2 POC ABG O2 Sat POC ABG Base Excess FiO2 Sodium Potassium Chloride Carbon Dioxide Anion Gap BUN Creatinine Estimated GFR BUN/Creatinine Ratio Glucose POC Glucose 165 H 210 H 139 H Lactic Acid Calcium Phosphorus Magnesium Total Creatine Kinase CK-MB (CK-2) CK-MB (CK-2) Rel Index Troponin T C-Reactive Protein Triglycerides Cholesterol LDL Cholesterol Direct HDL Cholesterol Cholesterol/HDL Ratio Urine Color Urine Turbidity Urine pH Ur Specific [place] Urine Protein Urine Glucose (UA) Urine Ketones Urine Blood Urine Nitrite Urine Bilirubin Urine Urobilinogen Ur Leukocyte Esterase Urine WBC (Auto) Urine RBC (Auto) Urine Bacteria (Auto) Urine Opiates Screen Urine Methadone Screen Ur Barbiturates Screen Ur Phencyclidine Scrn Ur Amphetamines Screen U Benzodiazepines Scrn Urine Cocaine Screen U Marijuana (THC) Screen Drugs of Abuse Note 09/05/16 09/05/16 09/05/16 04:05 04:05 05:38 WBC 10.0 RBC 4.42 Hgb 10.4 Hct 33.4 MCV 76 L D MCH 23 L MCHC 31 RDW 17.8 H Plt Count 326 Lymph % (Auto) Installation Specialist [place] % (Auto) Installation Specialist Eos % (Auto) Installation Specialist Baso % (Auto) Installation Specialist Lymph # Installation Specialist [place] # Installation Specialist Eos # Installation Specialist Baso # Installation Specialist Seg Neutrophils % Installation Specialist Seg Neutrophils # Installation Specialist POC ABG pH POC ABG pCO2 POC ABG pO2 POC ABG HCO3 POC ABG Total CO2 POC ABG O2 Sat POC ABG Base Excess FiO2 Sodium 134 L Potassium 4.1 D Chloride 98.5 Carbon Dioxide 18 L Anion Gap 22 BUN 16 Creatinine 1.8 H Estimated GFR 37 BUN/Creatinine Ratio 8.88 Glucose 192 H POC Glucose 175 H Lactic Acid Calcium 8.8 Phosphorus Magnesium Total Creatine Kinase CK-MB (CK-2) CK-MB (CK-2) Rel Index Troponin T C-Reactive Protein Triglycerides Cholesterol LDL Cholesterol Direct HDL Cholesterol Cholesterol/HDL Ratio Urine Color Urine Turbidity Urine pH Ur Specific [place] Urine Protein Urine Glucose (UA) Urine Ketones Urine Blood Urine Nitrite Urine Bilirubin Urine Urobilinogen Ur Leukocyte Esterase Urine WBC (Auto) Urine RBC (Auto) Urine Bacteria (Auto) Urine Opiates Screen Urine Methadone Screen Ur Barbiturates Screen Ur Phencyclidine Scrn Ur Amphetamines Screen U Benzodiazepines Scrn Urine Cocaine Screen U Marijuana (THC) Screen Drugs of Abuse Note - Imaging and cardiology CT Scan - head: report reviewed MRI - head: pending Assessment and Plan Patient was assessed and evaluated for Acute Inpatient Rehab Unit. 46 y.o. female admitted due to acute onset of aphasia; pending MRI Brain for ongoing CVA work-up. Pt remains agitated, requiring sedation, and in 4 point restraints. She has been unable to be evaluated by PT; noted to require totalA with OT for ADLs. At this time, pt is unable to actively participate in acute rehab due to level of alertness and agitation/need for restraints; however, this may improve in next 1-2 days. Ongoing medical management per primary team for HTN, DM, agitation; F/U MRI results. Continue PT/OT; will need RUBBER TILE FLOOR LAYER for swallowing evaluation once more alert. Will continue to follow; case discussed with case management. Thank you for consultation. - Patient Problems (1) Acute CVA (cerebrovascular accident) Current Visit: Yes Status: Acute (2) Uncontrolled hypertension Current Visit: Yes Status: Acute (3) Diabetes Current Visit: Yes Status: Acute Qualifiers: Diabetes mellitus type: type 1 Diabetes mellitus complication status: with hyperglycemia Diabetes mellitus complication detail: D Diabetic retinopathy severity: D Proliferative retinopathy type: P Diabetes mellitus macular edema: D Diabetes mellitus retirement insulin use: D Laterality: L Chronic kidney disease stage: C Qualified Code(s): E10.65 - Type 1 diabetes mellitus with hyperglycemia (4) Agitation Current Visit: Yes Status: Acute
--- NOTE | 2016-09-05 10:49 | Progress Note ---
Assessment and Plan Assessment and plan: Acute CVA. Continue neuro checks. Follow-up MRI/MRA, carotid Doppler and echocardiogram. Neurology consultation. PT/OT/ST. Acute encephalopathy. Etiology likely secondary to #1. Neurology consultation pending. Accelerated Hypertension. Continue labetalol IV prn. Increase hydralazine and add labetalol by mouth. Hypokalemia. Replete potassium as needed. Diabetes type 2. Continue sliding-scale regular insulin and Accu-Cheks. Hyperlipidemia. Follow-up lipid profile and treat accordingly. Chronic kidney disease. The patient's creatinine May 2016 was 1.8. Patient appears to be at baseline. Asthma. Stable History Interval history: 46-year-old woman with a history of hypertension, diabetes, asthma, hyperlipidemia, chronic kidney disease and anxiety who was admitted for acute CVA and accelerated hypertension. Patient's blood pressure systolically on admission was noted be greater than 260. TPA was started but this was discontinued after 5 minutes because her blood pressure became uncontrolled. The TPA was not initiated again because the patient was outside the TPA window. Patient remains confused and combative requiring restraints. Patient currently with IV labetalol Hospitalist Physical - Constitutional Vitals: Temp Pulse Resp BP Pulse Ox 97 F L 77 25 H 155/92 100 09/05/16 08:00 09/05/16 10:11 09/05/16 10:00 09/05/16 10:11 09/05/16 10:00 General appearance: Present: no acute distress (Dobhoff tube in place), other ( does not open eyes to name or stimulation; does not follow commands) - EENT Eyes: Present: PERRL, EOM intact ENT: hearing intact, clear oral mucosa, dentition normal - Neck Neck: Present: supple, normal ROM - Respiratory Respiratory effort: normal Respiratory: bilateral: CTA - Cardiovascular Rhythm: regular Heart Sounds: Present: S1 & S2. Absent: gallop, rub - Extremities Extremities: no ischemia, No edema, Full ROM - Abdominal General gastrointestinal: soft, non-tender, non-distended, normal bowel sounds - Integumentary Integumentary: Present: clear, warm, dry - Neurologic Neurologic: CNII-XII intact, moves all extremities Results - Labs CBC & Chem 7: 09/05/16 04:05 09/05/16 04:05 Labs: Laboratory Last Values WBC 10.0 K/mm3 (4.5-11.0) 09/05/16 04:05 RBC 4.42 M/mm3 (3.65-5.03) 09/05/16 04:05 Hgb 10.4 gm/dl (10.1-14.3) 09/05/16 04:05 Hct 33.4 % (30.3-42.9) 09/05/16 04:05 MCV 76 fl (79-97) L D 09/05/16 04:05 MCH 23 pg (28-32) L 09/05/16 04:05 MCHC 31 % (30-34) 09/05/16 04:05 RDW 17.8 % (13.2-15.2) H 09/05/16 04:05 Plt Count 326 K/mm3 (140-440) 09/05/16 04:05 Lymph % (Auto) Director Learning 09/05/16 04:05 [place] % (Auto) Director Learning 09/05/16 04:05 Eos % (Auto) Director Learning 09/05/16 04:05 Baso % (Auto) Director Learning 09/05/16 04:05 Lymph # Director Learning 09/05/16 04:05 [place] # Director Learning 09/05/16 04:05 Eos # Director Learning 09/05/16 04:05 Baso # Director Learning 09/05/16 04:05 Add Manual Diff Complete 09/03/16 00:10 Total Counted 100 09/03/16 00:10 Seg Neutrophils % Director Learning 09/05/16 04:05 Seg Neuts % (Manual) 43.0 % (40.0-70.0) 09/03/16 00:10 Band Neutrophils % 0 % 09/03/16 00:10 Lymphocytes % (Manual) 54.0 % (13.4-35.0) H 09/03/16 00:10 Reactive Lymphs % (Man) 0 % 09/03/16 00:10 Monocytes % (Manual) 2.0 % (0.0-7.3) 09/03/16 00:10 Eosinophils % (Manual) 1.0 % (0.0-4.3) 09/03/16 00:10 Basophils % (Manual) 0 % (0.0-1.8) 09/03/16 00:10 Metamyelocytes % 0 % 09/03/16 00:10 Myelocytes % 0 % 09/03/16 00:10 Promyelocytes % 0 % 09/03/16 00:10 Blast Cells % 0 % 09/03/16 00:10 Nucleated RBC % Not Reportable 09/03/16 00:10 Seg Neutrophils # Director Learning 09/05/16 04:05 Seg Neutrophils # Man 6.0 K/mm3 (1.8-7.7) 09/03/16 00:10 Band Neutrophils # 0.0 K/mm3 09/03/16 00:10 Lymphocytes # (Manual) 7.5 K/mm3 (1.2-5.4) H 09/03/16 00:10 Abs React Lymphs (Man) 0.0 K/mm3 09/03/16 00:10 Monocytes # (Manual) 0.3 K/mm3 (0.0-0.8) 09/03/16 00:10 Eosinophils # (Manual) 0.1 K/mm3 (0.0-0.4) 09/03/16 00:10 Basophils # (Manual) 0.0 K/mm3 (0.0-0.1) 09/03/16 00:10 Metamyelocytes # 0.0 K/mm3 09/03/16 00:10 Myelocytes # 0.0 K/mm3 09/03/16 00:10 Promyelocytes # 0.0 K/mm3 09/03/16 00:10 Blast Cells # 0.0 K/mm3 09/03/16 00:10 WBC Morphology Not Reportable 09/03/16 00:10 Hypersegmented Neuts Not Reportable 09/03/16 00:10 Hyposegmented Neuts Not Reportable 09/03/16 00:10 Hypogranular Neuts Not Reportable 09/03/16 00:10 Smudge Cells Not Reportable 09/03/16 00:10 Toxic Granulation Not Reportable 09/03/16 00:10 Toxic Vacuolation Not Reportable 09/03/16 00:10 Dohle Bodies Not Reportable 09/03/16 00:10 Pelger-Huet Anomaly Not Reportable 09/03/16 00:10 Jasmina Rods Not Reportable 09/03/16 00:10 Platelet Estimate Appears normal 09/03/16 00:10 Clumped Platelets Not Reportable 09/03/16 00:10 Plt Clumps, EDTA Not Reportable 09/03/16 00:10 Large Platelets Not Reportable 09/03/16 00:10 Giant Platelets Not Reportable 09/03/16 00:10 Platelet Satelliting Not Reportable 09/03/16 00:10 Plt Morphology Comment Not Reportable 09/03/16 00:10 RBC Morphology Not Reportable 09/03/16 00:10 Dimorphic RBCs Not Reportable 09/03/16 00:10 Polychromasia Not Reportable 09/03/16 00:10 Hypochromasia 1+ 09/03/16 00:10 Poikilocytosis Not Reportable 09/03/16 00:10 Anisocytosis Not Reportable 09/03/16 00:10 Microcytosis Not Reportable 09/03/16 00:10 Macrocytosis Not Reportable 09/03/16 00:10 Spherocytes Not Reportable 09/03/16 00:10 Pappenheimer Bodies Not Reportable 09/03/16 00:10 Sickle Cells Not Reportable 09/03/16 00:10 Target Cells Not Reportable 09/03/16 00:10 Tear Drop Cells Not Reportable 09/03/16 00:10 Ovalocytes Not Reportable 09/03/16 00:10 Helmet Cells Not Reportable 09/03/16 00:10 Monet-Bramwell Bodies Not Reportable 09/03/16 00:10 [place]ylie Rings Not Reportable 09/03/16 00:10 [place] Cells Not Reportable 09/03/16 00:10 Bite Cells Not Reportable 09/03/16 00:10 Crenated Cell Not Reportable 09/03/16 00:10 Elliptocytes Not Reportable 09/03/16 00:10 Acanthocytes (Spur) Not Reportable 09/03/16 00:10 Rouleaux Not Reportable 09/03/16 00:10 Hemoglobin C Crystals Not Reportable 09/03/16 00:10 Schistocytes Not Reportable 09/03/16 00:10 Malaria parasites Not Reportable 09/03/16 00:10 Jun Bodies Not Reportable 09/03/16 00:10 Hem Pathologist Commnt No 09/03/16 00:10 PT 12.9 Sec. (12.2-14.9) 09/03/16 00:10 INR 0.98 (0.87-1.13) 09/03/16 00:10 APTT 29.0 Sec. (24.2-36.6) 09/03/16 00:10 Thrombin Time 16.8 Sec. (15.1-19.6) 09/03/16 00:10 POC ABG pH 7.452 (7.35-7.45) H 09/03/16 15:07 POC ABG pCO2 37.6 (35-45) 09/03/16 15:07 POC ABG pO2 101 (80-105) 09/03/16 15:07 POC ABG HCO3 26.3 09/03/16 15:07 POC ABG Total CO2 27 09/03/16 15:07 POC ABG O2 Sat 98 09/03/16 15:07 POC ABG Base Excess 2 09/03/16 15:07 FiO2 21 % 09/03/16 15:07 Sodium 134 mmol/L (137-145) L 09/05/16 04:05 Potassium 4.1 mmol/L (3.6-5.0) D 09/05/16 04:05 Chloride 98.5 mmol/L (98-107) 09/05/16 04:05 Carbon Dioxide 18 mmol/L (22-30) L 09/05/16 04:05 Anion Gap 22 mmol/L 09/05/16 04:05 BUN 16 mg/dL (7-17) 09/05/16 04:05 Creatinine 1.8 mg/dL (0.7-1.2) H 09/05/16 04:05 Estimated GFR 37 ml/min 09/05/16 04:05 BUN/Creatinine Ratio 8.88 % 09/05/16 04:05 Glucose 192 mg/dL (65-100) H 09/05/16 04:05 POC Glucose 175 (70-105) H 09/05/16 05:38 Lactic Acid 1.50 mmol/L (0.7-2.0) 09/03/16 17:15 Calcium 8.8 mg/dL (8.4-10.2) 09/05/16 04:05 Phosphorus 2.30 mg/dL (2.5-4.5) L 09/03/16 17:57 Magnesium 1.60 mg/dL (1.7-2.3) L 09/03/16 16:20 Total Creatine Kinase 67 units/L (30-135) 09/03/16 11:26 CK-MB (CK-2) 1.4 ng/mL (0.0-4.0) 09/03/16 11:26 CK-MB (CK-2) Rel Index 2.0 (0-4) 09/03/16 11:26 Troponin T < 0.010 ng/mL (0.00-0.029) 09/03/16 11:26 C-Reactive Protein 0.60 mg/dL (0.00-1.30) 09/03/16 17: Triglycerides 160 mg/dL (2-149) H 09/04/16 03:31 Cholesterol 189 mg/dL (50-199) 09/04/16 03:31 LDL Cholesterol Direct 126 mg/dL (50-130) 09/04/16 03:31 HDL Cholesterol 31 mg/dL (40-59) L 09/04/16 03:31 Cholesterol/HDL Ratio 6.09 % 09/04/16 03:31 HCG, Qual Negative (Negative) 09/03/16 00:10 Urine Color Yellow (Yellow) 09/03/16 15:11 Urine Turbidity Slightly-cloudy (Clear) 09/03/16 15:11 Urine pH 5.0 (5.0-7.0) 09/03/16 15:11 Ur Specific [place] 1.010 (1.003-1.030) 09/03/16 15:11 Urine Protein 100 mg/dl mg/dL (Negative) 09/03/16 15:11 Urine Glucose (UA) 150 mg/dL (Negative) 09/03/16 15:11 Urine Ketones Neg mg/dL (Negative) 09/03/16 15:11 Urine Blood Mod (Negative) 09/03/16 15:11 Urine Nitrite Neg (Negative) 09/03/16 15:11 Urine Bilirubin Neg (Negative) 09/03/16 15:11 Urine Urobilinogen < 2.0 mg/dL (<2.0) 09/03/16 15:11 Ur Leukocyte Esterase Lg (Negative) 09/03/16 15:11 Urine WBC (Auto) 5.0 /HPF (0.0-6.0) 09/03/16 15:11 Urine RBC (Auto) 1.0 /HPF (0.0-6.0) 09/03/16 15:11 Urine Bacteria (Auto) 1+ /HPF (Negative) 09/03/16 15:11 Urine Opiates Screen Presumptive negative 09/03/16 15:11 Urine Methadone Screen Presumptive positive 09/03/16 15:11 Ur Barbiturates Screen Presumptive positive 09/03/16 15:11 Ur Phencyclidine Scrn Presumptive negative 09/03/16 15:11 Ur Amphetamines Screen Presumptive negative 09/03/16 15:11 U Benzodiazepines Scrn Presumptive negative 09/03/16 15:11 Urine Cocaine Screen Presumptive negative 09/03/16 15:11 U Marijuana (THC) Screen Presumptive positive 09/03/16 15:11 Drugs of Abuse Note Disclamer 09/03/16 15:11 Blood Type A POSITIVE 09/03/16 00:10 Antibody Screen TNR 09/03/16 00:10 DELORIS Antibody Screen Negative 09/03/16 00:10
--- NOTE | 2016-09-05 11:02 | Progress Note ---
Assessment and Plan - Patient Problems (1) Acute CVA (cerebrovascular accident) Current Visit: Yes Status: Acute Plan to address problem: tPA abruptly discontinued secondary to poorly controlled HTN Awaiting MRI Secondary stroke prophylaxis Neuroprotective measures Initiate enteric feeding SCDs for DVT prophlaxis Aspiration precautions (2) Hypertensive emergency Current Visit: Yes Status: Acute Plan to address problem: Blood pressure control On multiple blood pressure medications. Monitor renal function closely while on lisinopril (3) Agitation Current Visit: Yes Status: Acute Plan to address problem: Need MRI to r/o intracranial hemorrhage. Urine drug screen was positive for cannaboids, methadone. On CIWA protocol Await MRI Continue agitation management (4) Obesity (BMI 35.0-39.9 without comorbidity) Current Visit: Yes Status: Chronic (5) Chronic renal insufficiency Current Visit: Yes Status: Acute Qualifiers: Chronic kidney disease stage: C Plan to address problem: Monitor urine output. Avoid nephrotoxic agents Adjust medication dosage for CrCl Subjective Date of service: 09/05/16 Principal diagnosis: Acute CVA; Acute Encephalopathy Interval history: Patient seen and examined.Vitals, labs, medications, chart reviewed. Remains agitated. Blood pressure control is better. family is at the bedside. Discussed during interdisciplinary rounds Objective - Exam Narrative Exam: Gen. appearance: Patient lying in bed, no apparent distress, 4. restraints, restless with agitation HEENT: Normocephalic, atraumatic, pupils equally round, small and sluggishly reactive to light, extraocular movement intact, and no sclericterus,. No JVD or thyromegaly or nodule,neck supple, no carotid bruit ,mucous membranes moist, unable to examine oral cavity Heart: S1, S2, regular rate and rhythm Lungs: Clear to auscultation bilaterally, breathing comfortable Abdomen: Positive bowel sounds, nontender, nondistended, no organomegaly Extremity: No edema, cyanosis, clubbing Skin: No rash, nodules, warm, dry Neuro: Difficult to assess, facial droop, right hemiparesis,clonus encephalopathic, brisk tendon reflexes Vital Signs - 12hr 09/04/16 09/04/16 09/04/16 23:10 23:20 23:30 Temperature Pulse Rate 68 Pulse Rate [ From Monitor] Pulse Rate [ Left Dorsalis Pedis] Pulse Rate [ Left Radial] Pulse Rate [ Right Dorsalis Pedis] Pulse Rate [ Right Radial] Respiratory 34 H 21 11 L Rate Blood Pressure 128/72 128/72 128/72 O2 Sat by Pulse 95 98 95 Oximetry 09/04/16 09/04/16 09/05/16 23:40 23:50 00:00 Temperature 97.1 F L Pulse Rate 75 77 77 Pulse Rate [ From Monitor] Pulse Rate [ Left Dorsalis Pedis] Pulse Rate [ Left Radial] Pulse Rate [ Right Dorsalis Pedis] Pulse Rate [ Right Radial] Respiratory 17 28 H 13 Rate Blood Pressure 133/93 133/93 133/93 O2 Sat by Pulse 96 96 97 Oximetry 09/05/16 09/05/16 09/05/16 00:06 00:10 00:20 Temperature Pulse Rate 77 76 68 Pulse Rate [ From Monitor] Pulse Rate [ Left Dorsalis Pedis] Pulse Rate [ Left Radial] Pulse Rate [ Right Dorsalis Pedis] Pulse Rate [ Right Radial] Respiratory 16 13 21 Rate Blood Pressure 132/110 132/110 132/110 O2 Sat by Pulse 97 97 96 Oximetry 09/05/16 09/05/16 09/05/16 00:30 00:40 00:50 Temperature Pulse Rate 79 76 78 Pulse Rate [ From Monitor] Pulse Rate [ Left Dorsalis Pedis] Pulse Rate [ Left Radial] Pulse Rate [ Right Dorsalis Pedis] Pulse Rate [ Right Radial] Respiratory 19 19 15 Rate Blood Pressure 167/101 167/101 167/101 O2 Sat by Pulse 97 97 97 Oximetry 09/05/16 09/05/16 09/05/16 01:00 01:10 01:20 Temperature Pulse Rate 80 69 Pulse Rate [ From Monitor] Pulse Rate [ Left Dorsalis Pedis] Pulse Rate [ Left Radial] Pulse Rate [ Right Dorsalis Pedis] Pulse Rate [ Right Radial] Respiratory 11 L 14 34 H Rate Blood Pressure 167/101 157/88 157/88 O2 Sat by Pulse 97 97 96 Oximetry 09/05/16 09/05/16 09/05/16 01:30 01:40 01:50 Temperature Pulse Rate 70 69 72 Pulse Rate [ From Monitor] Pulse Rate [ Left Dorsalis Pedis] Pulse Rate [ Left Radial] Pulse Rate [ Right Dorsalis Pedis] Pulse Rate [ Right Radial] Respiratory 34 H 34 H 32 H Rate Blood Pressure 162/95 162/95 162/95 O2 Sat by Pulse 97 98 98 Oximetry 07/09/05/16 09/05/16 02:00 02:10 02:20 Temperature Pulse Rate 74 66 70 Pulse Rate [ From Monitor] Pulse Rate [ Left Dorsalis Pedis] Pulse Rate [ Left Radial] Pulse Rate [ Right Dorsalis Pedis] Pulse Rate [ Right Radial] Respiratory 29 H 32 H 32 H Rate Blood Pressure 168/100 168/100 168/100 O2 Sat by Pulse 97 99 98 Oximetry 09/05/16 09/05/16 09/05/16 02:30 02:40 02:50 Temperature Pulse Rate 73 67 68 Pulse Rate [ From Monitor] Pulse Rate [ Left Dorsalis Pedis] Pulse Rate [ Left Radial] Pulse Rate [ Right Dorsalis Pedis] Pulse Rate [ Right Radial] Respiratory 32 H 32 H 33 H Rate Blood Pressure 135/90 135/90 135/90 O2 Sat by Pulse 98 99 95 Oximetry 09/05/16 09/05/16 09/05/16 03:00 03:10 03:20 Temperature Pulse Rate 85 71 Pulse Rate [ From Monitor] Pulse Rate [ Left Dorsalis Pedis] Pulse Rate [ Left Radial] Pulse Rate [ Right Dorsalis Pedis] Pulse Rate [ Right Radial] Respiratory 21 19 21 Rate Blood Pressure 135/90 174/103 174/103 O2 Sat by Pulse 97 98 98 Oximetry 09/05/16 09/05/16 09/05/16 03:30 03:40 03:50 Temperature Pulse Rate 79 69 73 Pulse Rate [ From Monitor] Pulse Rate [ Left Dorsalis Pedis] Pulse Rate [ Left Radial] Pulse Rate [ Right Dorsalis Pedis] Pulse Rate [ Right Radial] Respiratory 37 H 32 H 37 H Rate Blood Pressure 174/103 166/109 166/109 O2 Sat by Pulse 97 97 97 Oximetry 09/05/16 09/05/16 09/05/16 04:00 04:10 04:20 Temperature 97.9 F Pulse Rate 78 79 73 Pulse Rate [ 72 From Monitor] Pulse Rate [ 72 Left Dorsalis Pedis] Pulse Rate [ 72 Left Radial] Pulse Rate [ 72 Right Dorsalis Pedis] Pulse Rate [ 72 Right Radial] Respiratory 36 H 19 35 H Rate Blood Pressure 166/109 166/109 166/109 O2 Sat by Pulse 97 97 97 Oximetry 09/05/16 09/05/16 09/05/16 04:30 04:40 04:50 Temperature Pulse Rate 80 70 76 Pulse Rate [ From Monitor] Pulse Rate [ Left Dorsalis Pedis] Pulse Rate [ Left Radial] Pulse Rate [ Right Dorsalis Pedis] Pulse Rate [ Right Radial] Respiratory 17 25 H 38 H Rate Blood Pressure 166/109 224/118 225/123 O2 Sat by Pulse 98 97 98 Oximetry 09/05/16 09/05/16 09/05/16 05:00 05:02 05:10 Temperature Pulse Rate 76 73 67 Pulse Rate [ From Monitor] Pulse Rate [ Left Dorsalis Pedis] Pulse Rate [ Left Radial] Pulse Rate [ Right Dorsalis Pedis] Pulse Rate [ Right Radial] Respiratory 28 H 29 H Rate Blood Pressure 225/123 225/123 183/106 O2 Sat by Pulse 95 97 Oximetry 09/05/16 09/05/16 09/05/16 05:13 05:14 05:20 Temperature Pulse Rate 71 71 71 Pulse Rate [ From Monitor] Pulse Rate [ Left Dorsalis Pedis] Pulse Rate [ Left Radial] Pulse Rate [ Right Dorsalis Pedis] Pulse Rate [ Right Radial] Respiratory 34 H Rate Blood Pressure 183/106 183/106 183/106 O2 Sat by Pulse 96 Oximetry 09/05/16 09/05/16 09/05/16 05:30 05:40 05:50 Temperature Pulse Rate 80 88 88 Pulse Rate [ From Monitor] Pulse Rate [ Left Dorsalis Pedis] Pulse Rate [ Left Radial] Pulse Rate [ Right Dorsalis Pedis] Pulse Rate [ Right Radial] Respiratory 35 H 23 20 Rate Blood Pressure 183/106 183/106 183/106 O2 Sat by Pulse 96 97 99 Oximetry 09/05/16 09/05/16 09/05/16 06:00 06:30 07:00 Temperature Pulse Rate 88 85 82 Pulse Rate [ From Monitor] Pulse Rate [ Left Dorsalis Pedis] Pulse Rate [ Left Radial] Pulse Rate [ Right Dorsalis Pedis] Pulse Rate [ Right Radial] Respiratory 12 25 H 42 H Rate Blood Pressure 183/106 148/91 136/76 O2 Sat by Pulse 96 98 88 Oximetry 09/05/16 09/05/16 09/05/16 07:30 08:00 08:30 Temperature 97 F L Pulse Rate 71 69 69 Pulse Rate [ From Monitor] Pulse Rate [ Left Dorsalis Pedis] Pulse Rate [ Left Radial] Pulse Rate [ Right Dorsalis Pedis] Pulse Rate [ Right Radial] Respiratory 33 H 16 31 H Rate Blood Pressure 119/81 117/72 123/77 O2 Sat by Pulse 95 98 100 Oximetry 09/05/16 09/05/16 09/05/16 09:00 09:30 10:00 Temperature Pulse Rate 74 77 80 Pulse Rate [ From Monitor] Pulse Rate [ Left Dorsalis Pedis] Pulse Rate [ Left Radial] Pulse Rate [ Right Dorsalis Pedis] Pulse Rate [ Right Radial] Respiratory 29 H 19 25 H Rate Blood Pressure 155/90 155/90 149/89 O2 Sat by Pulse 100 99 100 Oximetry 09/05/16 09/05/16 10:10 10:11 Temperature Pulse Rate 77 77 Pulse Rate [ From Monitor] Pulse Rate [ Left Dorsalis Pedis] Pulse Rate [ Left Radial] Pulse Rate [ Right Dorsalis Pedis] Pulse Rate [ Right Radial] Respiratory Rate Blood Pressure 155/92 155/92 O2 Sat by Pulse Oximetry Constitutional: no acute distress, other (sedated) Eyes: non-icteric ENT: oropharynx moist Neck: supple, no lymphadenopathy Effort: normal Ascultation: Bilateral: clear Cardiovascular: regular rate and rhythm Gastrointestinal: normoactive bowel sounds, soft, non-tender, non-distended Integumentary: normal Extremities: no cyanosis, no edema, pulses normal, no ischemia or petechiae Neurologic: non-focal exam (grossly), pupils equal and round, motor strength normal and Psychiatric: other (unable to assess) CBC and BMP: 09/05/16 04:05 09/06/16 04:12 ABG, PT/INR, D-dimer: ABG POC ABG pH 7.452 (7.35-7.45) H 09/03/16 15:07 POC ABG pCO2 37.6 (35-45) 09/03/16 15:07 POC ABG pO2 101 (80-105) 09/03/16 15:07 POC ABG HCO3 26.3 09/03/16 15:07 POC ABG Total CO2 27 09/03/16 15:07 POC ABG O2 Sat 98 09/03/16 15:07 PT/INR, D-dimer PT 12.9 Sec. (12.2-14.9) 09/03/16 00:10 INR 0.98 (0.87-1.13) 09/03/16 00:10 Abnormal lab findings: Abnormal Labs 09/03/16 09/03/16 09/03/16 12:12 15:07 16:20 Hgb MCV MCH RDW Lymph % (Auto) Seg Neutrophils % Seg Neutrophils # POC ABG pH 7.452 H Sodium Potassium Chloride Carbon Dioxide Creatinine Glucose POC Glucose 178 H Phosphorus 2.20 L Magnesium 1.60 L Triglycerides HDL Cholesterol 09/03/16 09/03/16 09/03/16 17:57 17:58 23:50 Hgb MCV MCH RDW Lymph % (Auto) Seg Neutrophils % Seg Neutrophils # POC ABG pH Sodium Potassium Chloride Carbon Dioxide Creatinine Glucose POC Glucose 162 H 145 H Phosphorus 2.30 L Magnesium Triglycerides HDL Cholesterol 09/04/16 09/04/16 09/04/16 03:31 03:31 05:42 Hgb 9.7 L D MCV 72 L MCH 23 L RDW 17.5 H Lymph % (Auto) 11.1 L Seg Neutrophils % 84.3 H Seg Neutrophils # 8.9 H POC ABG pH Sodium 135 L Potassium 2.9 L* Chloride 97.2 L Carbon Dioxide 19 L Creatinine 1.7 H Glucose 170 H POC Glucose 152 H Phosphorus Magnesium Triglycerides 160 H HDL Cholesterol 31 L 09/04/16 09/04/16 09/04/16 11:34 17:46 23:29 Hgb MCV MCH RDW Lymph % (Auto) Seg Neutrophils % Seg Neutrophils # POC ABG pH Sodium Potassium Chloride Carbon Dioxide Creatinine Glucose POC Glucose 165 H 210 H 139 H Phosphorus Magnesium Triglycerides HDL Cholesterol 09/05/16 09/05/16 09/05/16 04:05 04:05 05:38 Hgb MCV 76 L D MCH 23 L RDW 17.8 H Lymph % (Auto) Seg Neutrophils % Seg Neutrophils # POC ABG pH Sodium 134 L Potassium Chloride Carbon Dioxide 18 L Creatinine 1.8 H Glucose 192 H POC Glucose 175 H Phosphorus Magnesium Triglycerides HDL Cholesterol Critical care time in (mins) excluding proc time.: 35 Critical care attestation.: If time is entered above; I have spent that time in minutes in the direct care of this critically ill patient, excluding procedure time.
--- NOTE | 2016-09-05 11:03 | Admit Criteria Form ---
Admission Criteria Documentation: STROKE: ISCHEMIC Clinical Indications for Admission to Inpatient Care (Place 'X' for any and all applicable criteria): Admission is indicated for ANY ONE of the following(1)(2)(3)(4): [X]I. Acute stroke Extended stay beyond goal length of stay may be needed for(1)(2) [ ]a) Major deficit or clinical deterioration [ ]b) Hospital-acquired infection (eg, urinary tract infection, pneumonia) [ ]c) Embolic cause of stroke [ ]d) Venous thromboembolism(9) [ ]e) Seizures [ ]f) Bleeding (eg, cerebral) [ ]g) Increased intracranial pressure [ ]h) Comorbidities [ ]i) Surgical intervention The original [email or web address] [employer] content created by [employer] has been revised. The portions of the content which have been revised are identified through the use of italic text or in bold, and [facility] has neither reviewed nor approved the modified material. All other unmodified content is copyright [facility] [employer]. Please see references footnoted in the original [facility] [employer] edition 2016 Admission Criteria Met: Yes
[2016-09-05] MEDS: HCTZ PO SCH (13:15)
[2016-09-06] MEDS: HumuLIN R SUB-Q SCH ×4 (02:02→18:36)
[2016-09-06 05:31] LABS: BUN/Creatinine Ratio 14.28; Calcium 8.8 mg/dL (8.4-10.2)
[2016-09-06] MEDS: CATAPRES PO SCH ×3 (06:47→22:15)
[2016-09-06] MEDS: APRESOLINE PO SCH ×3 (06:50→22:15)
[2016-09-06] MEDS: ATIVAN IV PRN ×3 (07:02→22:58)
[2016-09-06] MEDS: HALDOL IV PRN ×3 (07:15→22:58)
[2016-09-06] MEDS ORDERED: POTASSIUM CHLORIDE FEEDTUBE ONE ×2 (08:00→11:00)
--- NOTE | 2016-09-06 08:01 | Vascular Lab Report ---
CAROTID DUPLEX STUDY: RIGHT PSVEDV CCA PROX:63 8 CCA DIST:[id number] ICA PROX:3715 ICA MID:5518 ICA DIST:6817 ECA: 838 VERT: 37 7 LEFT PSVEDV CCA PROX:71 7 CCA DIST:43 9 ICA PROX:4816 ICA MID:3917 ICA DIST:6319 ECA: 896 VERT: 55 15 REASON FOR EXAM: Stroke. COMMENTS ON THE RIGHT: Doppler frequency analysis is consistent with 16 to 49 percent diameter reduction of the internal carotid artery. Minimal amount of plaque is seen. The common carotid artery is patent. The external carotid artery is patent. The vertebral artery has antegrade flow. COMMENTS ON THE LEFT: Doppler frequency analysis is consistent with 16 to 49 percent diameter reduction of the internal carotid artery. Minimal amount of plaque is seen. The common carotid artery is patent. The external carotid artery is patent. The vertebral artery has antegrade flow. IMPRESSION: Less than 50% diameter reduction in the internal carotid arteries bilaterally. Consider repeat carotid artery duplex in 12 months.
--- NOTE | 2016-09-06 09:59 | Progress Note ---
Assessment and Plan Assessment and plan: 46-year-old woman with a history of hypertension, diabetes, asthma, hyperlipidemia, chronic kidney disease and anxiety who was admitted for acute CVA and accelerated hypertension. Patient's blood pressure systolically on admission was noted be greater than 260. TPA was started but this was discontinued after 5 minutes because her blood pressure became uncontrolled. The TPA was not initiated again because the patient was outside the TPA window. Patient remains confused and combative requiring restraints. Patient currently with IV labetalol Acute CVA with infarct. sp TPA Continue neuro checks. Follow-up MRI/MRA, carotid Doppler and echocardiogram. Neurology consultation. PT/OT/ST. Acute hypoxic respiratory failure Lungs are clear on exam today, CXR negative, continue oxygen supplementation - Acute Toxic Metabolic encephalopathy. Likely multifactorial, mostly secondary to CVA and receiving Ativan and Haldol for agitation for restlessness, we checked troponin, EKG, CXR which were all negative Hypertensive Emergency BP this am was 215/120, continue labetol drip optimize meds via NGTube to attempt to wean off drip Hypokalemia. Replete potassium as needed. Diabetes type 2. Continue sliding-scale regular insulin and Accu-Cheks. Hyperlipidemia. Continue statin Nutrition continue tube feeds Chronic kidney disease, stage 3. The patient's creatinine May 2016 was 1.8. Currently 2. If creatinine goes up any further, will obtain nephrology consult Asthma. Stable Case discussed with the patient's family and pulmonology The high probability of a clinically significant, sudden or life threatening deterioration of the [cardiovascular and neurological] system(s) required my full and direct attention, intervention and personal management. The aggregate critical care time was [33] minutes. This time is in addition to time spent performing reported procedures but includes the following: [] Data Review and interpretation [] Patient assessment and monitoring of vital signs [] Documentation [] Medication orders and management History Interval history: She was agitated and restless earlier and was given haldol. she is now less responsive. She was also hypoxic and tachcardic to 110, she was placed on ventimask After her brother Bebeto, she was able to respond and say her brother and her son 's names Yesterday, but Today She Is Not Responsive Hospitalist Physical - Physical exam Narrative exam: General: Patient appears well in no distress HEENT: MMM, EOMI cardiac: S1-S2 heard lungs: clear to auscultation, abdomen: soft, nontender, nondistended bowel sounds positive extremities: no edema clubbing or cyanosis Skin: no rash or lesion Neuro: Nonresponsive, nonverbal, withdraws to touch and painful stimuli on the left side, right side of her body is weak. Babinski reflexes downgoing in both feet, right foot has diminished reflex Psych: appropriate behavior and mood, cognition intact - Constitutional Vitals: Temp Pulse Resp BP Pulse Ox 97.6 F 128 H 41 H 215/120 96 09/06/16 08:00 09/06/16 07:01 09/06/16 07:01 09/06/16 07:01 09/06/16 07:01 General appearance: Present: no acute distress (Dobhoff tube in place), other ( does not open eyes to name or stimulation; does not follow commands) Results - Labs CBC & Chem 7: 09/09/16 03:00 09/09/16 03:00 Labs: Laboratory Last Values WBC 10.0 K/mm3 (4.5-11.0) 09/05/16 04:05 RBC 4.42 M/mm3 (3.65-5.03) 09/05/16 04:05 Hgb 10.4 gm/dl (10.1-14.3) 09/05/16 04:05 Hct 33.4 % (30.3-42.9) 09/05/16 04:05 MCV 76 fl (79-97) L D 09/05/16 04:05 MCH 23 pg (28-32) L 09/05/16 04:05 MCHC 31 % (30-34) 09/05/16 04:05 RDW 17.8 % (13.2-15.2) H 09/05/16 04:05 Plt Count 326 K/mm3 (140-440) 09/05/16 04:05 Lymph % (Auto) Tub Operator 09/05/16 04:05 Warren % (Auto) Tub Operator 09/05/16 04:05 Eos % (Auto) Tub Operator 09/05/16 04:05 Baso % (Auto) Tub Operator 09/05/16 04:05 Lymph # Tub Operator 09/05/16 04:05 Warren # Tub Operator 09/05/16 04:05 Eos # Tub Operator 09/05/16 04:05 Baso # Tub Operator 09/05/16 04:05 Add Manual Diff Complete 09/03/16 00:10 Total Counted 100 09/03/16 00:10 Seg Neutrophils % Tub Operator 09/05/16 04:05 Seg Neuts % (Manual) 43.0 % (40.0-70.0) 09/03/16 00:10 Band Neutrophils % 0 % 09/03/16 00:10 Lymphocytes % (Manual) 54.0 % (13.4-35.0) H 09/03/16 00:10 Reactive Lymphs % (Man) 0 % 09/03/16 00:10 Monocytes % (Manual) 2.0 % (0.0-7.3) 09/03/16 00:10 Eosinophils % (Manual) 1.0 % (0.0-4.3) 09/03/16 00:10 Basophils % (Manual) 0 % (0.0-1.8) 09/03/16 00:10 Metamyelocytes % 0 % 09/03/16 00:10 Myelocytes % 0 % 09/03/16 00:10 Promyelocytes % 0 % 09/03/16 00:10 Blast Cells % 0 % 09/03/16 00:10 Nucleated RBC % Not Reportable 09/03/16 00:10 Seg Neutrophils # Tub Operator 09/05/16 04:05 Seg Neutrophils # Man 6.0 K/mm3 (1.8-7.7) 09/03/16 00:10 Band Neutrophils # 0.0 K/mm3 09/03/16 00:10 Lymphocytes # (Manual) 7.5 K/mm3 (1.2-5.4) H 09/03/16 00:10 Abs React Lymphs (Man) 0.0 K/mm3 09/03/16 00:10 Monocytes # (Manual) 0.3 K/mm3 (0.0-0.8) 09/03/16 00:10 Eosinophils # (Manual) 0.1 K/mm3 (0.0-0.4) 09/03/16 00:10 Basophils # (Manual) 0.0 K/mm3 (0.0-0.1) 09/03/16 00:10 Metamyelocytes # 0.0 K/mm3 09/03/16 00:10 Myelocytes # 0.0 K/mm3 09/03/16 00:10 Promyelocytes # 0.0 K/mm3 09/03/16 00:10 Blast Cells # 0.0 K/mm3 09/03/16 00:10 WBC Morphology Not Reportable 09/03/16 00:10 Hypersegmented Neuts Not Reportable 09/03/16 00:10 Hyposegmented Neuts Not Reportable 09/03/16 00:10 Hypogranular Neuts Not Reportable 09/03/16 00:10 Smudge Cells Not Reportable 09/03/16 00:10 Toxic Granulation Not Reportable 09/03/16 00:10 Toxic Vacuolation Not Reportable 09/03/16 00:10 Dohle Bodies Not Reportable 09/03/16 00:10 Pelger-Huet Anomaly Not Reportable 09/03/16 00:10 Jasmina Rods Not Reportable 09/03/16 00:10 Platelet Estimate Appears normal 09/03/16 00:10 Clumped Platelets Not Reportable 09/03/16 00:10 Plt Clumps, EDTA Not Reportable 09/03/16 00:10 Large Platelets Not Reportable 09/03/16 00:10 Giant Platelets Not Reportable 09/03/16 00:10 Platelet Satelliting Not Reportable 09/03/16 00:10 Plt Morphology Comment Not Reportable 09/03/16 00:10 RBC Morphology Not Reportable 09/03/16 00:10 Dimorphic RBCs Not Reportable 09/03/16 00:10 Polychromasia Not Reportable 09/03/16 00:10 Hypochromasia 1+ 09/03/16 00:10 Poikilocytosis Not Reportable 09/03/16 00:10 Anisocytosis Not Reportable 09/03/16 00:10 Microcytosis Not Reportable 09/03/16 00:10 Macrocytosis Not Reportable 09/03/16 00:10 Spherocytes Not Reportable 09/03/16 00:10 Pappenheimer Bodies Not Reportable 09/03/16 00:10 Sickle Cells Not Reportable 09/03/16 00:10 Target Cells Not Reportable 09/03/16 00:10 Tear Drop Cells Not Reportable 09/03/16 00:10 Ovalocytes Not Reportable 09/03/16 00:10 Helmet Cells Not Reportable 09/03/16 00:10 [place] Bodies Not Reportable 09/03/16 00:10 Shoals Rings Not Reportable 09/03/16 00:10 Chuck Cells Not Reportable 09/03/16 00:10 Bite Cells Not Reportable 09/03/16 00:10 Crenated Cell Not Reportable 09/03/16 00:10 Elliptocytes Not Reportable 09/03/16 00:10 Acanthocytes (Spur) Not Reportable 09/03/16 00:10 Rouleaux Not Reportable 09/03/16 00:10 Hemoglobin C Crystals Not Reportable 09/03/16 00:10 Schistocytes Not Reportable 09/03/16 00:10 Malaria parasites Not Reportable 09/03/16 00:10 Jun Bodies Not Reportable 09/03/16 00:10 Hem Pathologist Commnt No 09/03/16 00:10 PT 12.9 Sec. (12.2-14.9) 09/03/16 00:10 INR 0.98 (0.87-1.13) 09/03/16 00:10 APTT 29.0 Sec. (24.2-36.6) 09/03/16 00:10 Thrombin Time 16.8 Sec. (15.1-19.6) 09/03/16 00:10 POC ABG pH 7.514 (7.35-7.45) H 09/06/16 07:32 POC ABG pCO2 29.1 (35-45) L 09/06/16 07:32 POC ABG pO2 72 (80-105) L 09/06/16 07:32 POC ABG HCO3 23.5 09/06/16 07:32 POC ABG Total CO2 24 09/06/16 07:32 POC ABG O2 Sat 96 09/06/16 07:32 POC ABG Base Excess 1 09/06/16 07:32 FiO2 2 % 09/06/16 07:32 Sodium 133 mmol/L (137-145) L 09/06/16 04:12 Potassium 3.4 mmol/L (3.6-5.0) L 09/06/16 04:12 Chloride 94.9 mmol/L (98-107) L 09/06/16 04:12 Carbon Dioxide 19 mmol/L (22-30) L 09/06/16 04:12 Anion Gap 23 mmol/L 09/06/16 04:12 BUN 30 mg/dL (7-17) H 09/06/16 04:12 Creatinine 2.1 mg/dL (0.7-1.2) H 09/06/16 04:12 Estimated GFR 31 ml/min 09/06/16 04:12 BUN/Creatinine Ratio 14.28 % 09/06/16 04:12 Glucose 139 mg/dL (65-100) H 09/06/16 04:12 POC Glucose 146 (70-105) H 09/06/16 05:59 Lactic Acid 1.50 mmol/L (0.7-2.0) 09/03/16 17:15 Calcium 8.8 mg/dL (8.4-10.2) 09/06/16 04:12 Phosphorus 2.30 mg/dL (2.5-4.5) L 09/03/16 17:57 Magnesium 1.60 mg/dL (1.7-2.3) L 09/03/16 16:20 Total Creatine Kinase 67 units/L (30-135) 09/03/16 11:26 CK-MB (CK-2) 1.4 ng/mL (0.0-4.0) 09/03/16 11:26 CK-MB (CK-2) Rel Index 2.0 (0-4) 09/03/16 11:26 Troponin T < 0.010 ng/mL (0.00-0.029) 09/03/16 11:26 C-Reactive Protein 0.60 mg/dL (0.00-1.30) 09/03/16 17:15 Triglycerides 160 mg/dL (2-149) H 09/04/16 03:31 Cholesterol 189 mg/dL (50-199) 09/04/16 03:31 LDL Cholesterol Direct 126 mg/dL (50-130) 09/04/16 03:31 HDL Cholesterol 31 mg/dL (40-59) L 09/04/16 03:31 Cholesterol/HDL Ratio 6.09 % 09/04/16 03:31 HCG, Qual Negative (Negative) 09/03/16 00:10 Urine Color Yellow (Yellow) 09/03/16 15:11 Urine Turbidity Slightly-cloudy (Clear) 09/03/16 15:11 Urine pH 5.0 (5.0-7.0) 09/03/16 15:11 Ur Specific Napoleon 1.010 (1.003-1.030) 09/03/16 15:11 Urine Protein 100 mg/dl mg/dL (Negative) 09/03/16 15:11 Urine Glucose (UA) 150 mg/dL (Negative) 09/03/16 15:11 Urine Ketones Neg mg/dL (Negative) 09/03/16 15:11 Urine Blood Mod (Negative) 09/03/16 15:11 Urine Nitrite Neg (Negative) 09/03/16 15:11 Urine Bilirubin Neg (Negative) 09/03/16 15:11 Urine Urobilinogen < 2.0 mg/dL (<2.0) 09/03/16 15:11 Ur Leukocyte Esterase Lg (Negative) 09/03/16 15:11 Urine WBC (Auto) 5.0 /HPF (0.0-6.0) 09/03/16 15:11 Urine RBC (Auto) 1.0 /HPF (0.0-6.0) 09/03/16 15:11 Urine Bacteria (Auto) 1+ /HPF (Negative) 09/03/16 15:11 Urine Opiates Screen Presumptive negative 09/03/16 15:11 Urine Methadone Screen Presumptive positive 09/03/16 15:11 Ur Barbiturates Screen Presumptive positive 09/03/16 15:11 Ur Phencyclidine Scrn Presumptive negative 09/03/16 15:11 Ur Amphetamines Screen Presumptive negative 09/03/16 15:11 U Benzodiazepines Scrn Presumptive negative 09/03/16 15:11 Urine Cocaine Screen Presumptive negative 09/03/16 15:11 U Marijuana (THC) Screen Presumptive positive 09/03/16 15:11 Drugs of Abuse Note Disclamer 09/03/16 15:11 Blood Type A POSITIVE 09/03/16 00:10 Antibody Screen TNR 09/03/16 00:10 DELORIS Antibody Screen Negative 09/03/16 00:10
[2016-09-06] MEDS: PEPCID FEEDTUBE SCH (11:00)
[2016-09-06] MEDS: ASPIRIN PO SCH (11:01)
[2016-09-06] MEDS: HCTZ PO SCH (11:01)
[2016-09-06] MEDS: NORMODYNE PO SCH ×3 (11:02→22:14)
--- NOTE | 2016-09-06 11:57 | Consultation ---
History of Present Illness Consult date: 09/06/16 Requesting physician: MELANIE NEGRON Reason for Consult: stroke s/p tpA History of present illness: 46 YO F Hx Dm2/HTN/asthma/CKD/anxiety last well 09/02 @ 11:40 PM she presented w / eyes open R facial droop and not speaking but then apparently was laughing while in [facility] w/o facial droop. Tele neuro NIHSS 8. Her BP was 200s/100s and eventually family consented to tPA after initial declining. Bp was lowered using Cardene but this did not suffice so tpA infusion stopped after 5 mins. Since then she has been in ICU intubated and agitated requiring sedation. Sx are constant but waxing and waning. There are no clear aggravating, relieving or temporal factors. Severity is such to limit ADLs. Past History Past Medical History: diabetes, hypertension, renal failure Past Surgical History: cholecystectomy (per chart review) Social history: other (per chart review, family denied any smoking or alcohol history on admission) Family history: hypertension (per chart review) Medications and Allergies Allergies Allergy/AdvReac Type Severity Reaction Status Date / Time No Known Allergies Allergy Verified 04/14/15 06:02 Home Medications Medication Instructions Recorded Confirmed Last Taken Type Acetaminophen [Tylenol Arthritis] 650 mg PO QID PRN #30 tablet.er 02/15/16 Unknown Rx Albuterol Sulfate [Proventil HFA] 6.7 gm INHALATION Q4-6H 02/15/16 02/15/16 History Insulin Glargine [Lantus VIAL] 30 units SQ QHS 02/15/16 02/15/16 02/15/16 History Lisinopril [Lisinopril] 40 mg PO BID 02/15/16 02/15/16 02/15/16 History Clonidine HCl [Catapres] 0.3 mg PO TID #90 tablet 06/15/16 Unknown Rx Lisinopril [Zestril] 40 mg PO BID #60 tablet 06/15/16 Unknown Rx Polyethylene Glycol 3350 [Miralax 17 gm PO QDAY PRN #10 packet 06/15/16 Unknown Rx 3350] Active Meds: Active Medications Lipase/Protease/Amylase (Mary Reza 10,500 Unit) 1 each FEEDTUBE PRN PRN PRN Reason: For Clogged Feeding Tube Aspirin (Aspirin) 325 mg PO QDAY [facility] Last Admin: 09/06/16 11:01 Dose: 325 mg Atorvastatin Calcium (Lipitor) 20 mg PO QHS [facility] Last Admin: 09/05/16 23:32 Dose: 20 mg Clonidine HCl (Catapres) 0.3 mg PO Q8HR [facility] Last Admin: 09/06/16 06:47 Dose: 0.3 mg Dextrose (D50w (25gm)) 50 gm IV PRN PRN PRN Reason: hypoglycemia Famotidine (Pepcid) 20 mg FEEDTUBE QDAY [facility] Last Admin: 09/06/16 11:00 Dose: 20 mg Haloperidol Lactate (Haldol) 5 mg IV Q6H PRN PRN Reason: Unrespon. to mult. doses BZD's Last Admin: 09/06/16 07:15 Dose: 5 mg Hydralazine HCl (Apresoline) 100 mg PO Q8HR [facility] Last Admin: 09/06/16 06:50 Dose: 100 mg Hydrochlorothiazide (Hctz) 25 mg PO QDAY [facility] Last Admin: 09/06/16 11:01 Dose: 25 mg Nicardipine HCl 50 mg/ Sodium (Chloride) 250 mls @ 25 mls/hr IV TITR AGUSTIN; 5 MG/ HR PRN Reason: Protocol Last Titration: 09/03/16 05:10 Dose: 0 mg/hr, 0 mls/hr Labetalol HCl 400 mg/ Dextrose 400 mls @ 120 mls/hr IV TITR AGUSTIN; 2 MG/MIN PRN Reason: Protocol Last Admin: 09/04/16 11:25 Dose: 2 mg/min, 120 mls/hr Insulin Human Regular (Novolin R) 0 units SUB-Q Q6HR AGUSTIN PRN Reason: Protocol Last Admin: 09/06/16 06:46 Dose: Not Given Labetalol HCl (Normodyne) 200 mg PO BID [facility] Last Admin: 09/06/16 11:02 Dose: 200 mg Lisinopril (Zestril) 40 mg PO BID [facility] Last Admin: 09/05/16 23:32 Dose: 40 mg Lorazepam (Ativan) 2 mg IV Q1H PRN PRN Reason: Agitation Last Admin: 09/06/16 07:02 Dose: 2 mg Lorazepam (Ativan) 4 mg IV Q1H PRN PRN Reason: CIWA-Ar 16-25 Last Admin: 09/05/16 13:40 Dose: 4 mg Lorazepam (Ativan) 4 mg IV Q15MIN PRN PRN Reason: CIWA-Ar >25 Stop: 09/08/16 17:58 Last Admin: 09/05/16 14:00 Dose: 4 mg Ondansetron HCl (Zofran) 4 mg IV Q8H PRN PRN Reason: N/V unrelieved by Reglan Simple Syrup (Simple Syrup) 15 ml FEEDTUBE PRN PRN PRN Reason: Hypoglycemia Simple Syrup (Simple Syrup) 30 ml FEEDTUBE PRN PRN PRN Reason: Hypoglycemia Sodium Bicarbonate (Sodium Bicarbonate) 325 mg FEEDTUBE PRN PRN PRN Reason: For Clogged Feeding Tube Sodium Chloride (Sodium Chloride Flush Syringe 10 Ml) 10 ml IV PRN PRN PRN Reason: LINE FLUSH Review of Systems ROS unobtainable: due to mental status Physical Examination - Vital Signs Vital Signs: Vital Signs Temp Pulse Resp BP Pulse Ox 98.4 F 88 18 104/80 98 09/03/16 00:00 09/03/16 00:00 09/03/16 00:00 09/03/16 00:00 09/03/16 00:00 - Constitutional General appearance: acutely ill, chronically ill - EENT EENT: Present: ATNC, PERRL, mucous membranes dry, hearing intact - Respiratory Respiratory: Present: chest non-tender, no respiratory distress, decreased breath sounds - Cardiovascular Cardiovascular: Present: regular rate Extremities: Present: no peripheral edema bilatateraly, no clubbing, cyanosis, no inflammation, no ischemia or petechiae - Gastrointestinal Gastrointestinal: Present: normoactive bowel sounds, soft, non-distended - Integumentary Integumentary: Present: normal - Neurologic Cranial nerve examination: PERRL, V1/V2/V3 grossly intact, face symmetric, Intact Vestibulo-ocular r, intact corneal reflex Speech examination: other (no speech, doesnt follow commands) Detailed motor examination: grossly full strength in, other (withdraws to pain) Motor examination - right side: 4/5: biceps, triceps, wrist flexion, wrist extension, manager of revenue, hip flexors, knee extensors, dorsiflexion, toe extension (EHL) , plantarflexion Motor examination - left side: 4/5: biceps, triceps, wrist flexion, wrist extension, manager of revenue, hip flexors, knee extensors, dorsiflexion, toe extension (EHL) , plantarflexion Detailed sensory examination: intact, pain (withdraws to pain) Reflex and gait examination: intact Reflexes: 0: ankle, 1+: knee, 2+: bicep, tricep - Musculoskeletal Musculoskeletal: Present: no fluid collection, no pain, normal range of motion - Psychiatric Psychiatric: Present: mood/affect appropriate, cooperative Results - Laboratory Findings CBC and BMP: 09/05/16 04:05 09/06/16 04:12 Abnormal Lab Findings: Abnormal Labs 09/03/16 09/03/16 09/03/16 12:12 15:07 16:20 Hgb MCV MCH RDW Lymph % (Auto) Seg Neutrophils % Seg Neutrophils # POC ABG pH 7.452 H POC ABG pCO2 POC ABG pO2 Sodium Potassium Chloride Carbon Dioxide BUN Creatinine Glucose POC Glucose 178 H Phosphorus 2.20 L Magnesium 1.60 L Triglycerides HDL Cholesterol 09/03/16 09/03/16 09/03/16 17:57 17:58 23:50 Hgb MCV MCH RDW Lymph % (Auto) Seg Neutrophils % Seg Neutrophils # POC ABG pH POC ABG pCO2 POC ABG pO2 Sodium Potassium Chloride Carbon Dioxide BUN Creatinine Glucose POC Glucose 162 H 145 H Phosphorus 2.30 L Magnesium Triglycerides HDL Cholesterol 09/04/16 09/04/16 09/04/16 03:31 03:31 05:42 Hgb 9.7 L D MCV 72 L MCH 23 L RDW 17.5 H Lymph % (Auto) 11.1 L Seg Neutrophils % 84.3 H Seg Neutrophils # 8.9 H POC ABG pH POC ABG pCO2 POC ABG pO2 Sodium 135 L Potassium 2.9 L* Chloride 97.2 L Carbon Dioxide 19 L BUN Creatinine 1.7 H Glucose 170 H POC Glucose 152 H Phosphorus Magnesium Triglycerides 160 H HDL Cholesterol 31 L 09/04/16 09/04/16 09/04/16 11:34 17:46 23:29 Hgb MCV MCH RDW Lymph % (Auto) Seg Neutrophils % Seg Neutrophils # POC ABG pH POC ABG pCO2 POC ABG pO2 Sodium Potassium Chloride Carbon Dioxide BUN Creatinine Glucose POC Glucose 165 H 210 H 139 H Phosphorus Magnesium Triglycerides HDL Cholesterol 09/05/16 09/05/16 09/05/16 04:05 04:05 05:38 Hgb MCV 76 L D MCH 23 L RDW 17.8 H Lymph % (Auto) Seg Neutrophils % Seg Neutrophils # POC ABG pH POC ABG pCO2 POC ABG pO2 Sodium 134 L Potassium Chloride Carbon Dioxide 18 L BUN Creatinine 1.8 H Glucose 192 H POC Glucose 175 H Phosphorus Magnesium Triglycerides HDL Cholesterol 09/05/16 09/05/16 09/05/16 11:38 17:48 23:22 Hgb MCV MCH RDW Lymph % (Auto) Seg Neutrophils % Seg Neutrophils # POC ABG pH POC ABG pCO2 POC ABG pO2 Sodium Potassium Chloride Carbon Dioxide BUN Creatinine Glucose POC Glucose 164 H 186 H 195 H Phosphorus Magnesium Triglycerides HDL Cholesterol 09/06/16 09/06/16 09/06/16 04:12 05:59 07:32 Hgb MCV MCH RDW Lymph % (Auto) Seg Neutrophils % Seg Neutrophils # POC ABG pH 7.514 H POC ABG pCO2 29.1 L POC ABG pO2 72 L Sodium 133 L Potassium 3.4 L Chloride 94.9 L Carbon Dioxide 19 L BUN 30 H Creatinine 2.1 H Glucose 139 H POC Glucose 146 H Phosphorus Magnesium Triglycerides HDL Cholesterol Assessment and Plan 46 YO F Hx Dm2/HTN/asthma/CKD/anxiety last well 09/02 @ 11:40 PM p/w eyes open, R facial droop and ? aphasia but then in CT pt laughing w/o facial droop. Tele neuro NIHSS 8. Her BP was 200s/100s and eventually family consented to tPA after initial declining but tpa infusion stopped after 5 mins d/t refractory HTN. Since then she has been in ICU intubated and agitated requiring sedation. On exam pt w/ depressed level of arousal, poor concentration, paucity of speech , but withdraws from pain slightly less briskly on R hemibody. She has clear toxic metabolic infectious derangement as some etiology for neurologic decompensation. UDS + Methadone/Barbs/THC. 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 Stroke, Seizure or Meningitis. CTH on admit chronic L thalamic ? lacune and L > R ? gliosis but poor image. CDs neg. TTE neg.LDL 126. Plan and Recommendation: 1. Telemetry bed w/ Q4 hour neuro checks 2. Brain imaging: MRI Brain w/o Sg Stroke Protocol 3. Check serum TSH/Ammonia and correct as necessary 4. Cont Infectious work up/medical management for UTI, PNA, cellulitis, bacteremia, etc. 5. Avoid hyponatremia, hypo/hyper-calcemia, hypo/hyperglycemia, acidosis, hypoxia/hypoxemia, hypercarbia/hypercapnia 6. Avoid institution of any psychoactive medications (e.g. antihistamines, anticholinergics, BZD, hypnotics, opiates) as able unless low doses of low potency antipsychotic needed for behavioral issues complicating medical care 7. Thiamine/Folate/CIWA protocol accordingly for EtOH withdrawal 8. PCan lower MAPs by 10-15% daily to reach goal SBP 120-160 9. Stroke prevention: ASA 325mg Daily x 1 then 81mg QDay & upgrade to full dose statin therapy (Crestor 20mg or 40mg OR Lipitor 40mg or 80mg Daily OR Zocor 40mg QDay) for goal LDL < 70 if f/u CTH neg for ICH. No firm indication at this point for therapeutic anticoagulation as pt has not had AFib captured on telemetry monitoring. If MRI neg for infarct there is no neurologic indication for ASA/statin change/institution. 10. F/E/N: isotonic IVF prn, prn replete, bedside speech/swallow eval prior to PO intake 11. DVT Prophylaxis 12. Stroke education, PT/OT/Speech Therapy consults, CM evaluation 13. For any changes in neurologic status, pls obtain STAT CTH w/o contrast and call neurology
--- NOTE | 2016-09-06 13:20 | XRay Report ---
AP CHEST: HISTORY: Respiratory distress There is borderline to mild cardiomegaly which has decreased since 04/14/15. Normal pulmonary vascularity. The lungs are clear. Normal bony thorax. IMPRESSION: Borderline to mild cardiomegaly. Lungs clear.
--- NOTE | 2016-09-06 13:31 | Cat Scan Report ---
Cranial CT without contrast. History: Stroke. Findings: Comparison is made to the previous study on September 03, 2006. There is interval development of a large hypodense region in the left temporal and parietal lobes and possibly posterior left frontal lobe with associated effacement of cortical sulci. There is no evidence of acute hemorrhage. The hypodense region in the left thalamus is unchanged. The posterior fossa is normal. There is mild extrinsic compression of the occipital horn of the left lateral ventricle; otherwise the ventricles are unremarkable. There no extra-axial collections. Impression: Interval development of left subacute MCA territory infarct with minimal mass effect and edema. No evidence of hemorrhage. 2. Stable left thalamic infarct, probably chronic.
[2016-09-06] MEDS: ZESTRIL PO SCH (13:55)
--- NOTE | 2016-09-06 15:00 | Progress Note ---
Assessment and Plan - Patient Problems (1) Acute CVA (cerebrovascular accident) Current Visit: Yes Status: Acute Plan to address problem: tPA abruptly discontinued secondary to poorly controlled HTN CTScan -subacute MCA territory infarct Secondary stroke prophylaxis Neuroprotective measures Initiate enteric feeding SCDs for DVT prophlaxis Aspiration precautions (2) Respiratory alkalosis Current Visit: Yes Status: Acute Plan to address problem: Start NIPPV for work of breathing aspiration precautions, HOB >40% Monitor closely, she is at risk of respiratory compromise (3) Chronic renal insufficiency Current Visit: Yes Status: Acute Qualifiers: Chronic kidney disease stage: C Plan to address problem: worsening renal function- multifactorial, medications and hypotension Discontinue lisinopril. Allow permissive hypertension to allow for renal perfusion. Continue to monitor urine output. Avoid nephrotoxic agents Adjust medication dosage for CrCl (4) Uncontrolled hypertension Current Visit: Yes Status: Acute Plan to address problem: episode of hypotension this morning. Discontinue lisinopril (5) Agitation Current Visit: Yes Status: Acute Plan to address problem: Urine drug screen was positive for cannaboids, methadone. On [facility] protocol Continue agitation management Subjective Date of service: 09/06/16 Principal diagnosis: Acute CVA; Acute Encephalopathy Interval history: Remains agitated. Seen and examined. Vitals, labs, medications, chart reviewed. Tachypnea, tachycardia with grunting respirations. Objective - Exam Narrative Exam: Gen. appearance: Patient lying in bed, no apparent distress, 4. restraints, restless with agitation HEENT: Normocephalic, atraumatic, pupils equally round, small and sluggishly reactive to light, extraocular movement intact, and no sclericterus,. No JVD or thyromegaly or nodule,neck supple, no carotid bruit ,mucous membranes moist, unable to examine oral cavity Heart: S1, S2, regular rate and rhythm Lungs: respiratory distress, coarse breath sounds bilaterally with rhonchi Abdomen: Positive bowel sounds, non-tender, non-distended, no organomegaly Extremity: No edema, cyanosis, clubbing Skin: No rash, nodules, warm, dry Neuro: Difficult to assess, facial droop, right hemiparesis,clonus encephalopathic, brisk tendon reflexes Vital Signs - 12hr 09/06/16 09/06/16 09/06/16 03:31 04:00 04:31 Temperature Pulse Rate 87 91 H 96 H Pulse Rate [ 98 H From Monitor] Respiratory 42 H 40 H 48 H Rate Blood Pressure 142/80 147/75 147/75 O2 Sat by Pulse 95 98 95 Oximetry 09/06/16 09/06/16 09/06/16 05:00 05:31 06:00 Temperature Pulse Rate 97 H 98 H 92 H Pulse Rate [ From Monitor] Respiratory 44 H 49 H 44 H Rate Blood Pressure 123/73 123/73 164/80 O2 Sat by Pulse 95 93 97 Oximetry 09/06/16 09/06/16 09/06/16 06:31 06:47 06:50 Temperature Pulse Rate 98 H 100 H 100 H Pulse Rate [ From Monitor] Respiratory 41 H Rate Blood Pressure 164/80 164/80 164/80 O2 Sat by Pulse 96 Oximetry 09/06/16 09/06/16 09/06/16 07:01 07:30 08:00 Temperature 97.6 F Pulse Rate 128 H 116 H 118 H Pulse Rate [ From Monitor] Respiratory 41 H 61 H 58 H Rate Blood Pressure 215/120 156/79 162/84 O2 Sat by Pulse 96 97 100 Oximetry 09/06/16 09/06/16 09/06/16 08:30 09:00 09:30 Temperature Pulse Rate 114 H 117 H 119 H Pulse Rate [ From Monitor] Respiratory 65 H 56 H 60 H Rate Blood Pressure 169/93 154/97 171/108 O2 Sat by Pulse 100 100 100 Oximetry 09/06/16 09/06/16 09/06/16 10:00 10:30 11:00 Temperature Pulse Rate 91 H 101 H 95 H Pulse Rate [ From Monitor] Respiratory 31 H 40 H 38 H Rate Blood Pressure 112/68 165/90 108/63 O2 Sat by Pulse 100 100 100 Oximetry 09/06/16 09/06/16 09/06/16 11:30 12:01 12:30 Temperature Pulse Rate 97 H 93 H Pulse Rate [ From Monitor] Respiratory 37 H 23 Rate Blood Pressure 106/67 108/63 108/62 O2 Sat by Pulse 100 100 99 Oximetry 09/06/16 09/06/16 09/06/16 13:00 13:30 13:55 Temperature Pulse Rate 92 H 91 H 97 H Pulse Rate [ From Monitor] Respiratory 41 H 46 H Rate Blood Pressure 109/63 98/58 106/67 O2 Sat by Pulse 96 98 Oximetry 09/06/16 09/06/16 14:00 14:30 Temperature Pulse Rate 90 91 H Pulse Rate [ From Monitor] Respiratory 43 H 40 H Rate Blood Pressure 105/62 117/67 O2 Sat by Pulse 99 99 Oximetry Constitutional: no acute distress, agitated, appears uncomfortable, other ( sedated) Eyes: non-icteric ENT: oropharynx moist Neck: supple, no lymphadenopathy Effort: normal, very labored Ascultation: Bilateral: diminished breath sounds, rhonchi Cardiovascular: regular rate and rhythm Gastrointestinal: normoactive bowel sounds, soft, non-distended Integumentary: normal Extremities: no cyanosis, no edema, pulses normal, no ischemia or petechiae Neurologic: non-focal exam (grossly), pupils equal and round, motor strength normal and Psychiatric: other (unable to assess) CBC and BMP: 09/05/16 04:05 09/06/16 04:12 ABG, PT/INR, D-dimer: ABG POC ABG pH 7.514 (7.35-7.45) H 09/06/16 07:32 POC ABG pCO2 29.1 (35-45) L 09/06/16 07:32 POC ABG pO2 72 (80-105) L 09/06/16 07:32 POC ABG HCO3 23.5 09/06/16 07:32 POC ABG Total CO2 24 09/06/16 07:32 POC ABG O2 Sat 96 09/06/16 07:32 PT/INR, D-dimer PT 12.9 Sec. (12.2-14.9) 09/03/16 00:10 INR 0.98 (0.87-1.13) 09/03/16 00:10 Abnormal lab findings: Abnormal Labs 09/03/16 09/03/16 09/03/16 12:12 15:07 16:20 Hgb MCV MCH RDW Lymph % (Auto) Seg Neutrophils % Seg Neutrophils # POC ABG pH 7.452 H POC ABG pCO2 POC ABG pO2 Sodium Potassium Chloride Carbon Dioxide BUN Creatinine Glucose POC Glucose 178 H Phosphorus 2.20 L Magnesium 1.60 L Triglycerides HDL Cholesterol 09/03/16 09/03/16 09/03/16 17:57 17:58 23:50 Hgb MCV MCH RDW Lymph % (Auto) Seg Neutrophils % Seg Neutrophils # POC ABG pH POC ABG pCO2 POC ABG pO2 Sodium Potassium Chloride Carbon Dioxide BUN Creatinine Glucose POC Glucose 162 H 145 H Phosphorus 2.30 L Magnesium Triglycerides HDL Cholesterol 09/04/16 09/04/16 09/04/16 03:31 03:31 05:42 Hgb 9.7 L D MCV 72 L MCH 23 L RDW 17.5 H Lymph % (Auto) 11.1 L Seg Neutrophils % 84.3 H Seg Neutrophils # 8.9 H POC ABG pH POC ABG pCO2 POC ABG pO2 Sodium 135 L Potassium 2.9 L* Chloride 97.2 L Carbon Dioxide 19 L BUN Creatinine 1.7 H Glucose 170 H POC Glucose 152 H Phosphorus Magnesium Triglycerides 160 H HDL Cholesterol 31 L 09/04/16 09/04/16 09/04/16 11:34 17:46 23:29 Hgb MCV MCH RDW Lymph % (Auto) Seg Neutrophils % Seg Neutrophils # POC ABG pH POC ABG pCO2 POC ABG pO2 Sodium Potassium Chloride Carbon Dioxide BUN Creatinine Glucose POC Glucose 165 H 210 H 139 H Phosphorus Magnesium Triglycerides HDL Cholesterol 09/05/16 09/05/16 09/05/16 04:05 04:05 05:38 Hgb MCV 76 L D MCH 23 L RDW 17.8 H Lymph % (Auto) Seg Neutrophils % Seg Neutrophils # POC ABG pH POC ABG pCO2 POC ABG pO2 Sodium 134 L Potassium Chloride Carbon Dioxide 18 L BUN Creatinine 1.8 H Glucose 192 H POC Glucose 175 H Phosphorus Magnesium Triglycerides HDL Cholesterol 09/05/16 09/05/16 09/05/16 11:38 17:48 23:22 Hgb MCV MCH RDW Lymph % (Auto) Seg Neutrophils % Seg Neutrophils # POC ABG pH POC ABG pCO2 POC ABG pO2 Sodium Potassium Chloride Carbon Dioxide BUN Creatinine Glucose POC Glucose 164 H 186 H 195 H Phosphorus Magnesium Triglycerides HDL Cholesterol 09/06/16 09/06/16 09/06/16 04:12 05:59 07:32 Hgb MCV MCH RDW Lymph % (Auto) Seg Neutrophils % Seg Neutrophils # POC ABG pH 7.514 H POC ABG pCO2 29.1 L POC ABG pO2 72 L Sodium 133 L Potassium 3.4 L Chloride 94.9 L Carbon Dioxide 19 L BUN 30 H Creatinine 2.1 H Glucose 139 H POC Glucose 146 H Phosphorus Magnesium Triglycerides HDL Cholesterol Chest x-ray: report reviewed Allied health notes reviewed: RT Critical care time in (mins) excluding proc time.: 32 Critical care attestation.: If time is entered above; I have spent that time in minutes in the direct care of this critically ill patient, excluding procedure time.
[2016-09-06] MEDS: NACL 0.9% 1000 ML 1,000 ML IV SCH (18:37)
[2016-09-07] MEDS: HumuLIN R SUB-Q SCH ×5 (00:53→18:39)
[2016-09-07 03:22] LABS: Creatinine,Urine 106.1 mg/dL (0.1-20.0)
[2016-09-07 03:58] LABS: Bacteria,Urine 2+ /HPF (Negative); Bilirubin,Urine NEG (Negative); Blood,Urine SM (Negative); Color,Urine Yellow (Yellow); Hyaline Casts,Urine 4 /LPF; Mucus,Urine FEW /HPF; Urobilinogen,Urine < 2.0 mg/dL (<2.0)
[2016-09-07] MEDS: NACL 0.9% 1000 ML 1,000 ML IV SCH ×2 (06:10→22:31)
[2016-09-07] MEDS: CATAPRES PO SCH ×3 (06:11→22:30)
[2016-09-07] MEDS: APRESOLINE PO SCH ×3 (06:11→22:29)
[2016-09-07 07:20] LABS: BUN/Creatinine Ratio 18.27; Calcium 8.4 mg/dL (8.4-10.2)
[2016-09-07] MEDS: ASPIRIN PR SCH (07:48)
--- NOTE | 2016-09-07 09:03 | Consultation ---
History of Present Illness - Reason for Consult Consult date: 09/07/16 acute renal failure, chronic renal failure, accelerated hypertension Requesting physician: EZRA DE LA PAZ - History of Present Illness 46-year-old woman with a history of hypertension, diabetes, asthma, hyperlipidemia, chronic kidney disease, anxiety was brought to the emergency room because family noticed on 11:30 that she couldn't get her words out, her face was also twisted. She was brought emergently to the emergency room, her blood pressure was very elevated, systolic greater than 260. Her blood pressure was very difficult to control, however after was control, TPA was started but this was discontinued after 5 minutes because her blood pressure became uncontrolled. The TPA was not initiated again because the patient was outside the TPA window. The patient was placed in restraints because she kept taking out her IV assess , Ativan was also given .Review of system is unobtainable. Family member states she is noncompliant with medication Past History Past Medical History: diabetes, hypertension, renal failure Past Surgical History: cholecystectomy (per chart review) Social history: other (per chart review, family denied any smoking or alcohol history on admission). denies: smoking, alcohol abuse, prescription drug abuse , IV drug use Family history: hypertension (per chart review) Medications and Allergies Allergies Allergy/AdvReac Type Severity Reaction Status Date / Time No Known Allergies Allergy Verified 04/14/15 06:02 Home Medications Medication Instructions Recorded Confirmed Last Taken Type Acetaminophen [Tylenol Arthritis] 650 mg PO QID PRN #30 tablet.er 02/15/16 Unknown Rx Albuterol Sulfate [Proventil HFA] 6.7 gm INHALATION Q4-6H 02/15/16 02/15/16 History Insulin Glargine [Lantus VIAL] 30 units SQ QHS 02/15/16 02/15/16 02/15/16 History Lisinopril [Lisinopril] 40 mg PO BID 02/15/16 02/15/16 02/15/16 History Clonidine HCl [Catapres] 0.3 mg PO TID #90 tablet 06/15/16 Unknown Rx Lisinopril [Zestril] 40 mg PO BID #60 tablet 06/15/16 Unknown Rx Polyethylene Glycol 3350 [Miralax 17 gm PO QDAY PRN #10 packet 06/15/16 Unknown Rx 3350] Active Meds: Active Medications Lipase/Protease/Amylase (Mary Reza 10,500 Unit) 1 each FEEDTUBE PRN PRN PRN Reason: For Clogged Feeding Tube Aspirin (Aspirin) 325 mg PO QDAY [facility] Last Admin: 09/06/16 11:01 Dose: 325 mg Atorvastatin Calcium (Lipitor) 20 mg PO QHS AG[facility] Last Admin: 09/06/16 22:15 Dose: 20 mg Clonidine HCl (Catapres) 0.3 mg PO Q8HR [facility] Last Admin: 09/07/16 06:11 Dose: 0.3 mg Dextrose (D50w (25gm)) 50 gm IV PRN PRN PRN Reason: hypoglycemia Famotidine (Pepcid) 20 mg FEEDTUBE QDAY [facility] Last Admin: 09/06/16 11:00 Dose: 20 mg Haloperidol Lactate (Haldol) 5 mg IV Q6H PRN PRN Reason: Unrespon. to mult. doses BZD's Last Admin: 09/06/16 22:58 Dose: 5 mg Hydralazine HCl (Apresoline) 100 mg PO Q8HR [facility] Last Admin: 09/07/16 06:11 Dose: 100 mg Nicardipine HCl 50 mg/ Sodium (Chloride) 250 mls @ 25 mls/hr IV TITR AGUSTIN; 5 MG/ HR PRN Reason: Protocol Last Titration: 09/03/16 05:10 Dose: 0 mg/hr, 0 mls/hr Sodium Chloride (Nacl 0.9% 1000 Ml) 1,000 mls @ 75 mls/hr IV DIRECT AG[facility] Last Admin: 09/07/16 06:10 Dose: 75 mls/hr Insulin Human Regular (Novolin R) 0 units SUB-Q Q6HR AGUSTIN PRN Reason: Protocol Last Admin: 09/07/16 07:47 Dose: Not Given Labetalol HCl (Normodyne) 200 mg PO BID [facility] Last Admin: 09/06/16 22:14 Dose: 200 mg Lorazepam (Ativan) 2 mg IV Q1H PRN PRN Reason: Agitation Last Admin: 09/06/16 07:02 Dose: 2 mg Lorazepam (Ativan) 4 mg IV Q1H PRN PRN Reason: CIWA-Ar 16- Last Admin: 09/06/16 22:58 Dose: 4 mg Lorazepam (Ativan) 4 mg IV Q15MIN PRN PRN Reason: CIWA-Ar >25 Stop: 09/08/16 17:58 Last Admin: 09/05/16 14:00 Dose: 4 mg Ondansetron HCl (Zofran) 4 mg IV Q8H PRN PRN Reason: N/V unrelieved by Reglan Simple Syrup (Simple Syrup) 15 ml FEEDTUBE PRN PRN PRN Reason: Hypoglycemia Simple Syrup (Simple Syrup) 30 ml FEEDTUBE PRN PRN PRN Reason: Hypoglycemia Sodium Bicarbonate (Sodium Bicarbonate) 325 mg FEEDTUBE PRN PRN PRN Reason: For Clogged Feeding Tube Sodium Chloride (Sodium Chloride Flush Syringe 10 Ml) 10 ml IV PRN PRN PRN Reason: LINE FLUSH Review of Systems Constitutional: fatigue, weakness, malaise Exam - Vital Signs Vital signs: Vital Signs Temp Pulse Resp BP Pulse Ox 98.4 F 88 18 104/80 98 09/03/16 00:00 09/03/16 00:00 09/03/16 00:00 09/03/16 00:00 09/03/16 00:00 - Physical Exam Narrative exam: Gen. appearance: Patient lying in bed, no apparent distress, 4. restraints HEENT: Normocephalic, atraumatic, pupils equally round and reactive to light, extraocular movement intact, and no sclericterus,. No JVD or thyromegaly or nodule,neck supple, no carotid bruit ,mucous membranes moist, unable to examine oral cavity Heart: S1, S2, regular rate and rhythm Lungs: Clear to auscultation bilaterally, breathing comfortable Abdomen: Positive bowel sounds, nontender, nondistended, no organomegaly Extremity: No edema, cyanosis, clubbing Skin: No rash, nodules, warm, dry Neuro: Difficult to assess, facial droop, moves all 4 extremities Results - Lab Results 09/05/16 04:05 09/07/16 06:39 Most recent lab results Calcium 8.4 mg/dL (8.4-10.2) 09/07/16 06:39 Phosphorus 2.30 mg/dL (2.5-4.5) L 09/03/16 17:57 Magnesium 1.60 mg/dL (1.7-2.3) L 09/03/16 16:20 Urine Creatinine 106.1 mg/dL (0.1-20.0) H 09/07/16 02:47 Urine Sodium 14 mEq/L 09/07/16 02:47 Assessment and Plan Assessment and Plan JUANITA on CKD 3--cr 1.5 to 1.7 previously Acute CVA Hypertension uncontrolled Hypokalemia Diabetes type 2 Hyperlipidemia Asthma strict i/os juanita due to infectious vs hypoperfusion with acc HTN iv abx for uti control bp renal us and urine lytes daily lytes avoid nephrotoxins
[2016-09-07] MEDS: PEPCID FEEDTUBE SCH (09:08)
[2016-09-07] MEDS: NORMODYNE PO SCH ×2 (09:08→22:29)
[2016-09-07] MEDS: ASPIRIN PO SCH (09:08)
--- NOTE | 2016-09-07 09:41 | Progress Note ---
Assessment and Plan - Patient Problems (1) Acute CVA (cerebrovascular accident) Current Visit: Yes Status: Acute Plan to address problem: tPA abruptly discontinued secondary to poorly controlled HTN CTScan -subacute MCA territory infarct Secondary stroke prophylaxis Neuroprotective measures Initiate enteric feeding SCDs for DVT prophlaxis, Hold of on pharmacologic prophylaxis for VTE until intracranial hemorrhage is ruled out Aspiration precautions With worsening encephalopathy will need neuro imaging to r/o new intracranial process or extension of acute CVA (2) Respiratory alkalosis Current Visit: Yes Status: Acute Plan to address problem: Continue NIPPV aspiration precautions, HOB >40% Monitor closely, she is at risk of respiratory compromise- if any worsening will place an endotracheal tube and initiate mechanical ventilatory support (3) Chronic renal insufficiency Current Visit: Yes Status: Acute Qualifiers: Chronic kidney disease stage: C Plan to address problem: Continues to worsen- multifactorial, medications and hypotension Continue to monitor urine output. Avoid nephrotoxic agents Adjust medication dosage for CrCl Renal consult (4) Uncontrolled hypertension Current Visit: Yes Status: Acute Plan to address problem: Episode of hypotension this morning. Monitor closely and adjust anti-hypertensive medications (5) Agitation Current Visit: Yes Status: Acute Plan to address problem: Continue agitation management. Avoid benzodiazepines Subjective Date of service: 09/07/16 Principal diagnosis: Acute CVA; Acute Encephalopathy Interval history: Remains agitated, not obeying commands. Seen and examined. Vitals, labs, medications, chart reviewed. On going tachypnea, continues to require NIPPV. Unable to get MRI done secondary to NIPPV and agitation. Tube feedings at goal with aun stools. Decreased urine out put with worsening renal indices. Objective - Exam Narrative Exam: Gen. appearance: Patient lying in bed,on NIPPV, desaturates with removal of BIPAP More somnolent, eceived lorazepam per [facility] protocol last night HEENT: Normocephalic, atraumatic, pupils equally round and reactive to light, extraocular movement intact, and no scleral icterus,. No JVD or thyromegaly or nodule,neck supple, no carotid bruit ,mucous membranes moist, unable to examine oral cavity Heart: S1, S2, regular rate and rhythm Lungs: Clear to auscultation bilaterally, breathing comfortable Abdomen: Positive bowel sounds, non-tender, non-distended, no organomegaly Extremity: No edema, cyanosis, clubbing Skin: No rash, nodules, warm, dry Neuro: Difficult to assess, facial droop, right hemiparesis, flaccid Vital Signs - 12hr 09/06/16 09/06/16 09/06/16 22:00 22:14 22:15 Temperature Pulse Rate 81 132 H 133 H Respiratory 47 H Rate Blood Pressure 178/98 178/98 178/98 O2 Sat by Pulse 99 Oximetry 09/06/16 09/06/16 09/06/16 22:31 23:00 23:30 Temperature Pulse Rate 104 H 100 H 98 H Respiratory 30 H 52 H 42 H Rate Blood Pressure 106/61 99/57 92/54 O2 Sat by Pulse 99 98 95 Oximetry 09/07/16 09/07/16 09/07/16 00:00 00:01 00:30 Temperature 98.9 F Pulse Rate 98 H 85 Respiratory 38 H 38 H Rate Blood Pressure 95/55 86/53 O2 Sat by Pulse 100 99 Oximetry 09/07/16 09/07/16 09/07/16 01:00 01:30 02:00 Temperature Pulse Rate 83 83 81 Respiratory 39 H 39 H 41 H Rate Blood Pressure 92/51 84/47 92/50 O2 Sat by Pulse 100 100 100 Oximetry 09/07/16 09/07/16 09/07/16 02:31 03:00 03:28 Temperature 98.7 F Pulse Rate 104 H 115 H Respiratory 44 H 50 H Rate Blood Pressure 144/78 144/105 O2 Sat by Pulse 100 100 Oximetry 09/07/16 09/07/16 09/07/16 03:31 04:00 04:01 Temperature Pulse Rate 114 H 114 H Respiratory 45 H 38 H 43 H Rate Blood Pressure 144/105 160/138 O2 Sat by Pulse 100 100 100 Oximetry 09/07/16 09/07/16 09/07/16 04:31 05:00 05:30 Temperature Pulse Rate 115 H 112 H 111 H Respiratory 42 H 46 H 37 H Rate Blood Pressure 179/116 155/96 161/93 O2 Sat by Pulse 100 100 100 Oximetry 09/07/16 09/07/16 09/07/16 06:00 06:11 06:20 Temperature Pulse Rate 111 H 112 H 113 H Respiratory 25 H 48 H Rate Blood Pressure 165/98 165/98 165/98 O2 Sat by Pulse 98 98 Oximetry 09/07/16 09/07/16 09/07/16 06:30 07:00 07:30 Temperature Pulse Rate 111 H 111 H 114 H Respiratory 45 H 20 32 H Rate Blood Pressure 135/63 136/83 139/74 O2 Sat by Pulse 98 99 100 Oximetry 09/07/16 09/07/16 07:58 09:08 Temperature 98.7 F Pulse Rate 90 Respiratory Rate Blood Pressure 114/69 O2 Sat by Pulse Oximetry Constitutional: no acute distress, agitated, appears uncomfortable, other ( sedated) Eyes: non-icteric ENT: oropharynx moist Neck: supple, no lymphadenopathy Effort: normal, very labored Ascultation: Bilateral: clear, diminished breath sounds, rhonchi Cardiovascular: regular rate and rhythm Gastrointestinal: normoactive bowel sounds, soft, non-distended Integumentary: normal Extremities: no cyanosis, no edema, pulses normal, no ischemia or petechiae Neurologic: non-focal exam (grossly), pupils equal and round, motor strength normal and Psychiatric: other (unable to assess) CBC and BMP: 09/07/16 11:43 09/07/16 11:43 ABG, PT/INR, D-dimer: ABG POC ABG pH 7.457 (7.35-7.45) H 09/07/16 06:19 POC ABG pCO2 32.1 (35-45) L 09/07/16 06:19 POC ABG pO2 76 (80-105) L 09/07/16 06:19 POC ABG HCO3 22.7 09/07/16 06:19 POC ABG Total CO2 24 09/07/16 06:19 POC ABG O2 Sat 96 09/07/16 06:19 PT/INR, D-dimer PT 12.9 Sec. (12.2-14.9) 09/03/16 00:10 INR 0.98 (0.87-1.13) 09/03/16 00:10 Abnormal lab findings: Abnormal Labs 09/03/16 09/03/16 09/03/16 12:12 15:07 16:20 Hgb MCV MCH RDW Lymph % (Auto) Seg Neutrophils % Seg Neutrophils # POC ABG pH 7.452 H POC ABG pCO2 POC ABG pO2 Sodium Potassium Chloride Carbon Dioxide BUN Creatinine Glucose POC Glucose 178 H Phosphorus 2.20 L Magnesium 1.60 L Triglycerides HDL Cholesterol Urine WBC (Auto) Urine Creatinine 09/03/16 09/03/16 09/03/16 17:57 17:58 23:50 Hgb MCV MCH RDW Lymph % (Auto) Seg Neutrophils % Seg Neutrophils # POC ABG pH POC ABG pCO2 POC ABG pO2 Sodium Potassium Chloride Carbon Dioxide BUN Creatinine Glucose POC Glucose 162 H 145 H Phosphorus 2.30 L Magnesium Triglycerides HDL Cholesterol Urine WBC (Auto) Urine Creatinine 09/04/16 09/04/16 09/04/16 03:31 03:31 05:42 Hgb 9.7 L D MCV 72 L MCH 23 L RDW 17.5 H Lymph % (Auto) 11.1 L Seg Neutrophils % 84.3 H Seg Neutrophils # 8.9 H POC ABG pH POC ABG pCO2 POC ABG pO2 Sodium 135 L Potassium 2.9 L* Chloride 97.2 L Carbon Dioxide 19 L BUN Creatinine 1.7 H Glucose 170 H POC Glucose 152 H Phosphorus Magnesium Triglycerides 160 H HDL Cholesterol 31 L Urine WBC (Auto) Urine Creatinine 09/04/16 09/04/16 09/04/16 11:34 17:46 23:29 Hgb MCV MCH RDW Lymph % (Auto) Seg Neutrophils % Seg Neutrophils # POC ABG pH POC ABG pCO2 POC ABG pO2 Sodium Potassium Chloride Carbon Dioxide BUN Creatinine Glucose POC Glucose 165 H 210 H 139 H Phosphorus Magnesium Triglycerides HDL Cholesterol Urine WBC (Auto) Urine Creatinine 09/05/16 09/05/16 09/05/16 04:05 04:05 05:38 Hgb MCV 76 L D MCH 23 L RDW 17.8 H Lymph % (Auto) Seg Neutrophils % Seg Neutrophils # POC ABG pH POC ABG pCO2 POC ABG pO2 Sodium 134 L Potassium Chloride Carbon Dioxide 18 L BUN Creatinine 1.8 H Glucose 192 H POC Glucose 175 H Phosphorus Magnesium Triglycerides HDL Cholesterol Urine WBC (Auto) Urine Creatinine 09/05/16 09/05/16 09/05/16 11:38 17:48 23:22 Hgb MCV MCH RDW Lymph % (Auto) Seg Neutrophils % Seg Neutrophils # POC ABG pH POC ABG pCO2 POC ABG pO2 Sodium Potassium Chloride Carbon Dioxide BUN Creatinine Glucose POC Glucose 164 H 186 H 195 H Phosphorus Magnesium Triglycerides HDL Cholesterol Urine WBC (Auto) Urine Creatinine 09/06/16 09/06/16 09/06/16 04:12 05:59 07:32 Hgb MCV MCH RDW Lymph % (Auto) Seg Neutrophils % Seg Neutrophils # POC ABG pH 7.514 H POC ABG pCO2 29.1 L POC ABG pO2 72 L Sodium 133 L Potassium 3.4 L Chloride 94.9 L Carbon Dioxide 19 L BUN 30 H Creatinine 2.1 H Glucose 139 H POC Glucose 146 H Phosphorus Magnesium Triglycerides HDL Cholesterol Urine WBC (Auto) Urine Creatinine 09/06/16 09/06/16 09/06/16 11:57 17:58 19:02 Hgb MCV MCH RDW Lymph % (Auto) Seg Neutrophils % Seg Neutrophils # POC ABG pH 7.465 H POC ABG pCO2 32.0 L POC ABG pO2 Sodium Potassium Chloride Carbon Dioxide BUN Creatinine Glucose POC Glucose 165 H 160 H Phosphorus Magnesium Triglycerides HDL Cholesterol Urine WBC (Auto) Urine Creatinine 09/06/16 09/07/16 09/07/16 23:45 02:47 02:47 Hgb MCV MCH RDW Lymph % (Auto) Seg Neutrophils % Seg Neutrophils # POC ABG pH POC ABG pCO2 POC ABG pO2 Sodium Potassium Chloride Carbon Dioxide BUN Creatinine Glucose POC Glucose 204 H Phosphorus Magnesium Triglycerides HDL Cholesterol Urine WBC (Auto) 68.0 H Urine Creatinine 106.1 H 09/07/16 09/07/16 09/07/16 04:50 06:19 06:39 Hgb MCV MCH RDW Lymph % (Auto) Seg Neutrophils % Seg Neutrophils # POC ABG pH 7.457 H POC ABG pCO2 32.1 L POC ABG pO2 76 L Sodium 132 L Potassium Chloride 94.7 L Carbon Dioxide BUN 53 H Creatinine 2.9 H Glucose 151 H POC Glucose 149 H Phosphorus Magnesium Triglycerides HDL Cholesterol Urine WBC (Auto) Urine Creatinine Allied health notes reviewed: RT Critical care time in (mins) excluding proc time.: 31 Critical care attestation.: If time is entered above; I have spent that time in minutes in the direct care of this critically ill patient, excluding procedure time.
[2016-09-07] MEDS ORDERED: ROCEPHIN/NS 1 GM/50 ML 1 GM/50 ML BAG IV SCH (10:00)
[2016-09-07] MEDS ORDERED: DIOVAN FEEDTUBE SCH (10:10)
--- NOTE | 2016-09-07 10:51 | Progress Note ---
Assessment and Plan 46 YO F Hx Dm2/HTN/asthma/CKD/anxiety last well 09/02 @ 11:40 PM p/w eyes open, R facial droop and ? aphasia but then in CT pt laughing w/o facial droop. Tele neuro NIHSS 8. Her BP was 200s/100s and eventually family consented to tPA after initial declining but tpa infusion stopped after 5 mins d/t refractory HTN. Since then she has been in ICU intubated and agitated requiring sedation. On exam pt w/ depressed level of arousal, poor concentration, paucity of speech not following commands and withdraws from pain less briskly on R hemibody. CTH on admit chronic L thalamic ? lacune and L > R ? gliosis but poor image. f/u CTH 09/07 reveals large L MCA superior and inferior division infarct but no ICH or midline shift/compression of brain structures. UDS + Methadone/Barbs/THC. CDs neg. TTE neg.LDL 126. TSH/Nh4 neg. Plan and Recommendation: 1. Telemetry bed w/ Q4 hour neuro checks 2. Vascular Imaging: MRA Head w/o Sg when possible 3. PRINCE to eval for possible cardiac source of embolism 4. 30 day ambulatory Tele monitor ? pAFib 5. Stroke in [place] Eval: ESR/CRP, Coags, Toxicology, RPR/VDRL, If Febrile-BCx, LP; Hypercoag screen-Protein C Activity, Protein S Ag, Antithrombin III, Activated Protein C resistance, Factor V Leiden, RVVT or APLAbs, Beta-2 GP Ab, Fibrinogen, Prothrombin gene [id number] mutation, MTHFR C677T, TYSON-1, HIV, SAHIL, Lactic Acid, Homocysteine, Cryoglobulin, Complement level, ANCA, Scl-70 Ab, anti -centromere Ab, Anti-Ro (SSA)/Anti-La (SSB), CATHIE, Antiproteinase 3, Lipoprotein A 6. Can lower MAPs by 10-15% daily to reach goal SBP 120-160 as permissive HTN period complete 7. Secondary stroke prevention: ASA 325mg Daily & upgrade to full dose statin therapy (Crestor 20mg or 40mg OR Lipitor 40mg or 80mg Daily OR Zocor 40mg QDay) for goal LDL < 70. No firm indication at this point for therapeutic anticoagulation as pt has not had AFib captured on telemetry monitoring. 8. F/E/N: isotonic IVF prn, prn replete, bedside speech/swallow eval prior to PO intake. Pt will likely need PEG 9. DVT Prophylaxis 10. Stroke education, PT/OT/Speech Therapy consults, CM evaluation 11. For any changes in neurologic status, pls obtain STAT CTH w/o contrast and call neurology Subjective Date of service: 09/07/16 Principal diagnosis: Acute L MCA stroke; w/ Encephalopathy Interval history: f/u CTH completed. Objective - Vital Sign Vital Signs - 12hr 09/06/16 09/06/16 09/07/16 23:00 23:30 00:00 Temperature Pulse Rate 100 H 98 H 98 H Respiratory 52 H 42 H 38 H Rate Blood Pressure 99/57 92/54 95/55 O2 Sat by Pulse 98 95 100 Oximetry 09/07/16 09/07/16 09/07/16 00:01 00:30 01:00 Temperature 98.9 F Pulse Rate 85 83 Respiratory 38 H 39 H Rate Blood Pressure 86/53 92/51 O2 Sat by Pulse 99 100 Oximetry 09/07/16 09/07/16 09/07/16 01:30 02:00 02:31 Temperature Pulse Rate 83 81 104 H Respiratory 39 H 41 H 44 H Rate Blood Pressure 84/47 92/50 144/78 O2 Sat by Pulse 100 100 100 Oximetry 09/07/16 09/07/16 09/07/16 03:00 03:28 03:31 Temperature 98.7 F Pulse Rate 115 H 114 H Respiratory 50 H 45 H Rate Blood Pressure 144/105 144/105 O2 Sat by Pulse 100 100 Oximetry 09/07/16 09/07/16 09/07/16 04:00 04:01 04:31 Temperature Pulse Rate 114 H 115 H Respiratory 38 H 43 H 42 H Rate Blood Pressure 160/138 179/116 O2 Sat by Pulse 100 100 100 Oximetry 09/07/16 09/07/16 09/07/16 05:00 05:30 06:00 Temperature Pulse Rate 112 H 111 H 111 H Respiratory 46 H 37 H 25 H Rate Blood Pressure 155/96 161/93 165/98 O2 Sat by Pulse 100 100 98 Oximetry 09/07/16 09/07/16 09/07/16 06:11 06:20 06:30 Temperature Pulse Rate 112 H 113 H 111 H Respiratory 48 H 45 H Rate Blood Pressure 165/98 165/98 135/63 O2 Sat by Pulse 98 98 Oximetry 09/07/16 09/07/16 09/07/16 07:00 07:30 07:58 Temperature 98.7 F Pulse Rate 111 H 114 H Respiratory 20 32 H Rate Blood Pressure 136/83 139/74 O2 Sat by Pulse 99 100 Oximetry 09/07/16 09:08 Temperature Pulse Rate 90 Respiratory Rate Blood Pressure 114/69 O2 Sat by Pulse Oximetry - General Apperance Constitutional: uncomfortable, acutely ill - EENT EENT: ATNC, PERRL, mucous membranes dry, hearing intact - Respiratory Respiratory: no respiratory distress, accessory muscle use - Cardiovascular Cardiovascular: regular rate Extremities: no peripheral edema bilat, no clubbing, cyanosis, no inflammation, no ischemia or petechiae - Gastrointestinal Gastrointestinal: normoactive bowel sounds, soft, non-distended - Integumentary Integumentary: normal - Neurologic Cranial nerve examination: PERRL, EOMI, V1/V2/V3 grossly intact, Intact Vestibulo-ocular r, intact corneal reflex, facial droop (mild on R?) Speech examination: other (no speech not followign commands) Motor examination - right side: 2/5: biceps, triceps, wrist flexion, wrist extension, food and beverage outlets manager, hip flexors, knee extensors, dorsiflexion, toe extension (EHL) , plantarflexion Motor examination - left side: 4/5: biceps, triceps, wrist flexion, wrist extension, food and beverage outlets manager, hip flexors, knee extensors, dorsiflexion, toe extension (EHL) , plantarflexion Detailed sensory examination: intact, pain (less birsk on R) Reflex and gait examination: Babinski's sign (on R) Reflexes: 1+: ankle, 3+: bicep, knee, tricep - Musculoskeletal Musculoskeletal: no fluid collection, no pain, normal range of motion - Laboratory Findings CBC and BMP: 09/05/16 04:05 09/07/16 06:39 Abnormal Lab Findings: Abnormal Labs 09/03/16 09/03/16 09/03/16 12:12 15:07 16:20 Hgb MCV MCH RDW Lymph % (Auto) Seg Neutrophils % Seg Neutrophils # POC ABG pH 7.452 H POC ABG pCO2 POC ABG pO2 Sodium Potassium Chloride Carbon Dioxide BUN Creatinine Glucose POC Glucose 178 H Phosphorus 2.20 L Magnesium 1.60 L Triglycerides HDL Cholesterol Urine WBC (Auto) Urine Creatinine 09/03/16 09/03/16 09/03/16 17:57 17:58 23:50 Hgb MCV MCH RDW Lymph % (Auto) Seg Neutrophils % Seg Neutrophils # POC ABG pH POC ABG pCO2 POC ABG pO2 Sodium Potassium Chloride Carbon Dioxide BUN Creatinine Glucose POC Glucose 162 H 145 H Phosphorus 2.30 L Magnesium Triglycerides HDL Cholesterol Urine WBC (Auto) Urine Creatinine 09/04/16 09/04/16 09/04/16 03:31 03:31 05:42 Hgb 9.7 L D MCV 72 L MCH 23 L RDW 17.5 H Lymph % (Auto) 11.1 L Seg Neutrophils % 84.3 H Seg Neutrophils # 8.9 H POC ABG pH POC ABG pCO2 POC ABG pO2 Sodium 135 L Potassium 2.9 L* Chloride 97.2 L Carbon Dioxide 19 L BUN Creatinine 1.7 H Glucose 170 H POC Glucose 152 H Phosphorus Magnesium Triglycerides 160 H HDL Cholesterol 31 L Urine WBC (Auto) Urine Creatinine 09/04/16 09/04/16 09/04/16 11:34 17:46 23:29 Hgb MCV MCH RDW Lymph % (Auto) Seg Neutrophils % Seg Neutrophils # POC ABG pH POC ABG pCO2 POC ABG pO2 Sodium Potassium Chloride Carbon Dioxide BUN Creatinine Glucose POC Glucose 165 H 210 H 139 H Phosphorus Magnesium Triglycerides HDL Cholesterol Urine WBC (Auto) Urine Creatinine 09/05/16 09/05/16 09/05/16 04:05 04:05 05:38 Hgb MCV 76 L D MCH 23 L RDW 17.8 H Lymph % (Auto) Seg Neutrophils % Seg Neutrophils # POC ABG pH POC ABG pCO2 POC ABG pO2 Sodium 134 L Potassium Chloride Carbon Dioxide 18 L BUN Creatinine 1.8 H Glucose 192 H POC Glucose 175 H Phosphorus Magnesium Triglycerides HDL Cholesterol Urine WBC (Auto) Urine Creatinine 09/05/16 09/05/16 09/05/16 11:38 17:48 23:22 Hgb MCV MCH RDW Lymph % (Auto) Seg Neutrophils % Seg Neutrophils # POC ABG pH POC ABG pCO2 POC ABG pO2 Sodium Potassium Chloride Carbon Dioxide BUN Creatinine Glucose POC Glucose 164 H 186 H 195 H Phosphorus Magnesium Triglycerides HDL Cholesterol Urine WBC (Auto) Urine Creatinine 09/06/16 09/06/1609/06/17 04:12 05:59 07:32 Hgb MCV MCH RDW Lymph % (Auto) Seg Neutrophils % Seg Neutrophils # POC ABG pH 7.514 H POC ABG pCO2 29.1 L POC ABG pO2 72 L Sodium 133 L Potassium 3.4 L Chloride 94.9 L Carbon Dioxide 19 L BUN 30 H Creatinine 2.1 H Glucose 139 H POC Glucose 146 H Phosphorus Magnesium Triglycerides HDL Cholesterol Urine WBC (Auto) Urine Creatinine 09/06/16 09/06/16 09/06/16 11:57 17:58 19:02 Hgb MCV MCH RDW Lymph % (Auto) Seg Neutrophils % Seg Neutrophils # POC ABG pH 7.465 H POC ABG pCO2 32.0 L POC ABG pO2 Sodium Potassium Chloride Carbon Dioxide BUN Creatinine Glucose POC Glucose 165 H 160 H Phosphorus Magnesium Triglycerides HDL Cholesterol Urine WBC (Auto) Urine Creatinine 09/06/16 09/07/16 09/07/16 23:45 02:47 02:47 Hgb MCV MCH RDW Lymph % (Auto) Seg Neutrophils % Seg Neutrophils # POC ABG pH POC ABG pCO2 POC ABG pO2 Sodium Potassium Chloride Carbon Dioxide BUN Creatinine Glucose POC Glucose 204 H Phosphorus Magnesium Triglycerides HDL Cholesterol Urine WBC (Auto) 68.0 H Urine Creatinine 106.1 H 09/07/16 09/07/16 09/07/16 04:50 06:19 06:39 Hgb MCV MCH RDW Lymph % (Auto) Seg Neutrophils % Seg Neutrophils # POC ABG pH 7.457 H POC ABG pCO2 32.1 L POC ABG pO2 76 L Sodium 132 L Potassium Chloride 94.7 L Carbon Dioxide BUN 53 H Creatinine 2.9 H Glucose 151 H POC Glucose 149 H Phosphorus Magnesium Triglycerides HDL Cholesterol Urine WBC (Auto) Urine Creatinine
--- NOTE | 2016-09-07 10:59 | XRay Report ---
PORTABLE CHEST INDICATION: Respiratory distress, aspiration. COMPARISON: Yesterday. FINDINGS: Portable, frontal chest radiograph, 10:29 AM, 09/07/2016 demonstrates slight increased haziness at the right lung base and centrally. Minimal fluid or thickening along the right minor fissure. Right hemidiaphragm slightly elevated. Stable cardiomediastinal silhouette, Dobbhoff tube, EKG leads and osseous structures. Clear left lung. CONCLUSION: Slight right lower lung haziness/volume loss now suspected, as described. Follow up on subsequent exams as well. Thank you for the opportunity to participate in this patient's care.
--- NOTE | 2016-09-07 11:19 | Event Note ---
Date: 09/07/16 F/U Rehab consult, s/p CVA. Unable to have MRI completed. Repeat CT scan completed since last visit shows large L MCA superior and inferior division infarct; also noted to have positive UDS for Methadone/Barbs/THC. Pt is seen today in room; Jayneshiraz is present. She is now on BiPAP; remains sedated. Pt has not been able to participate with therapies due to sedation/agitation; currently a potential candidate for LTACH. If becomes more alert and is able to be weaned off of BiPAP, may become more appropriate for facility based rehab. Will continue to follow.
[2016-09-07] MEDS ORDERED: VANCOMYCIN PHARMACY TO DOSE IV SCH (12:00)
[2016-09-07 12:17] LABS: Basophils % (Auto) 0.1 % (0.0-1.8); Eosinophils % (Auto) 0.2 % (0.0-4.3); Hematocrit 26.4 % (30.3-42.9); Hemoglobin 8.3 gm/dl (10.1-14.3); Lymphocytes # (Auto) 1.6 K/mm3 (1.2-5.4); Lymphocytes % (Auto) 8.5 % (13.4-35.0); Mean Corpuscular HGB Conc 31 % (30-34); Mean Corpuscular Hemoglobin 22 pg (28-32); Mean Corpuscular Volume 72 fl (79-97); Monocytes % (Auto) 5.4 % (0.0-7.3); Platelet Count 322 K/mm3 (140-440); Red Blood Count 3.69 M/mm3 (3.65-5.03); Red Cell Distribution Width 17.9 % (13.2-15.2)
[2016-09-07] MEDS ORDERED: VANCOMYCIN/NS 1 GM/250 ML 1 GM/250 ML BAG IV ONE (13:00)
[2016-09-07] MEDS ORDERED: VANCOMYCIN 1,500 MG in NACL 0.9% 500 ML 500 ML IV ONE (13:00)
[2016-09-07 13:04] LABS: Albumin 2.2 g/dL (3.9-5); Calcium 8.5 mg/dL (8.4-10.2)
[2016-09-07] MEDS ORDERED: ZOSYN/NS 4.5GM/100ML 4.5 GM/100 ML VIAL IV SCH (14:00)
--- NOTE | 2016-09-07 15:01 | Ultrasound Report ---
ULTRASOUND RENAL INDICATION: Renal failure. COMPARISON: None similar. FINDINGS: Renal sonography somewhat limited due to patient's body habitus, though suggests slight increased renal cortical echogenicity, right more than left. Grossly preserved contours. No hydronephrosis. RIGHT KIDNEY measures 7.7 x 4.1 x 4.4 cm with cortical thickness of 1.3 cm. LEFT KIDNEY estimated at 8.2 x 4.1 x 4.1 cm with cortical thickness of 1.4 cm. URINARY BLADDER suboptimally distended and assessed. CONCLUSION: Bilateral renal atrophy and mild underlying medical renal disease without acute renal sonographic abnormality. Please correlate. Thank you for the opportunity to participate in this patient's care.
--- NOTE | 2016-09-07 15:57 | Progress Note ---
Assessment and Plan Assessment and plan: 46-year-old woman with a history of hypertension, diabetes, asthma, hyperlipidemia, chronic kidney disease and anxiety who was admitted for acute CVA and accelerated hypertension, she had a hx of poor adherence with her medications, and uncontrolled htn. Patient's blood pressure systolically on admission was noted be greater than 260. TPA was started but this was discontinued after 5 minutes because her blood pressure became uncontrolled. The TPA was not initiated again because the patient was outside the TPA window. Acute CVA with infarct. sp TPA Continue neuro checks. Neurology input appreciated, CT shows continued evolution of left MCA infarct with slight mass effect and edema, and there is no hemorrhage Obtain MRI/MRA brain, obtain PRINCE carotid doppler negative Echo shows preserved systolic function but does show some left ventricular diastolic dysfunction Acute hypoxic respiratory failure Lungs are clear on exam today, CXR negative, continue oxygen supplementation Likely due to pneumonia and COPD exacerbation will treat both appropriately Her mental status is a contraindication to BiPAP, patient will be intubated shortly Nosocomial acquired aspiration pneumonia/sepsis On broad-spectrum antibiotics, will obtain tracheal aspirate culture after she is intubated Continue sepsis protocol Asthma/COPD exacerbation Patient is on antibiotics, and BiPAP has been started on steroids. Given her mental status, intubation and mechanical ventilation is the appropriate treatments, case has been discussed with pulmonology patient to be intubated UTI Continue antibiotics as above, fup urine cx Acute Toxic Metabolic encephalopathy. Likely multifactorial, mostly secondary to evolution of CVA for restlessness, we checked troponin, EKG, CXR which were all negative Hypertensive Emergency she is now off labetalol drip optimize meds via NGTube Hypokalemia. Replete potassium as needed. hypophophatemia replete via NGT Diabetes type 2. Continue sliding-scale regular insulin and Accu-Cheks. Hyperlipidemia. Continue statin Nutrition continue tube feeds Chronic kidney disease, stage 3. The patient's creatinine May 2016 was 1.8. Currently 3. nephrology input appreciated ofelia due to infectious vs hypoperfusion with acc HTN renal us and urine lytes daily lytes avoid nephrotoxins Case discussed with the patient's family and pulmonology The high probability of a clinically significant, sudden or life threatening deterioration of the [cardiovascular and neurological] system(s) required my full and direct attention, intervention and personal management. The aggregate critical care time was [33] minutes. This time is in addition to time spent performing reported procedures but includes the following: [] Data Review and interpretation [] Patient assessment and monitoring of vital signs [] Documentation [] Medication orders and management History Interval history: Patient received Ativan last night for agitation, but has not received any today. She is nonresponsive today, she is not talking not speaking. She became more hypoxic and had to be put on BiPAP. Hospitalist Physical - Physical exam Narrative exam: General: Nonresponsive HEENT: MMM, EOMI cardiac: S1-S2 heard lungs: Mild expiratory wheezing heard abdomen: soft, nontender, nondistended bowel sounds positive extremities: no edema clubbing or cyanosis Skin: no rash or lesion Neuro: Nonresponsive, nonverbal, withdraws to touch and painful stimuli on the left side, right side of her body is weak. Babinski reflexes downgoing in both feet, right foot has diminished reflex - Constitutional Vitals: Temp Pulse Resp BP Pulse Ox 97.6 F 100 H 30 H 155/86 94 09/07/16 12:00 09/07/16 15:01 09/07/16 15:01 09/07/16 15:01 09/07/16 15:01 General appearance: Present: other (does not open eyes to name or stimulation; does not follow commands) Results - Labs CBC & Chem 7: 09/09/16 03:00 09/09/16 03:00 Labs: Laboratory Last Values WBC 19.4 K/mm3 (4.5-11.0) H 09/07/16 11:43 RBC 3.69 M/mm3 (3.65-5.03) 09/07/16 11:43 Hgb 8.3 gm/dl (10.1-14.3) L 09/07/16 11:43 Hct 26.4 % (30.3-42.9) L D 09/07/16 11:43 MCV 72 fl (79-97) L D 09/07/16 11:43 MCH 22 pg (28-32) L 09/07/16 11:43 MCHC 31 % (30-34) 09/07/16 11:43 RDW 17.9 % (13.2-15.2) H 09/07/16 11:43 Plt Count 322 K/mm3 (140-440) 09/07/16 11:43 Lymph % (Auto) 8.5 % (13.4-35.0) L 09/07/16 11:43 [place] % (Auto) 5.4 % (0.0-7.3) 09/07/16 11:43 Eos % (Auto) 0.2 % (0.0-4.3) 09/07/16 11:43 Baso % (Auto) 0.1 % (0.0-1.8) 09/07/16 11:43 Lymph # 1.6 K/mm3 (1.2-5.4) 09/07/16 11:43 [place] # 1.0 K/mm3 (0.0-0.8) H 09/07/16 11:43 Eos # 0.0 K/mm3 (0.0-0.4) 09/07/16 11:43 Baso # 0.0 K/mm3 (0.0-0.1) 09/07/16 11:43 Add Manual Diff Complete 09/03/16 00:10 Total Counted 100 09/03/16 00:10 Seg Neutrophils % 85.8 % (40.0-70.0) H 09/07/16 11:43 Seg Neuts % (Manual) 43.0 % (40.0-70.0) 09/03/16 00:10 Band Neutrophils % 0 % 09/03/16 00:10 Lymphocytes % (Manual) 54.0 % (13.4-35.0) H 09/03/16 00:10 Reactive Lymphs % (Man) 0 % 09/03/16 00:10 Monocytes % (Manual) 2.0 % (0.0-7.3) 09/03/16 00:10 Eosinophils % (Manual) 1.0 % (0.0-4.3) 09/03/16 00:10 Basophils % (Manual) 0 % (0.0-1.8) 09/03/16 00:10 Metamyelocytes % 0 % 09/03/16 00:10 Myelocytes % 0 % 09/03/16 00:10 Promyelocytes % 0 % 09/03/16 00:10 Blast Cells % 0 % 09/03/16 00:10 Nucleated RBC % Not Reportable 09/03/16 00:10 Seg Neutrophils # 16.6 K/mm3 (1.8-7.7) H 09/07/16 11:43 Seg Neutrophils # Man 6.0 K/mm3 (1.8-7.7) 09/03/16 00:10 Band Neutrophils # 0.0 K/mm3 09/03/16 00:10 Lymphocytes # (Manual) 7.5 K/mm3 (1.2-5.4) H 09/03/16 00:10 Abs React Lymphs (Man) 0.0 K/mm3 09/03/16 00:10 Monocytes # (Manual) 0.3 K/mm3 (0.0-0.8) 09/03/16 00:10 Eosinophils # (Manual) 0.1 K/mm3 (0.0-0.4) 09/03/16 00:10 Basophils # (Manual) 0.0 K/mm3 (0.0-0.1) 09/03/16 00:10 Metamyelocytes # 0.0 K/mm3 09/03/16 00:10 Myelocytes # 0.0 K/mm3 09/03/16 00:10 Promyelocytes # 0.0 K/mm3 09/03/16 00:10 Blast Cells # 0.0 K/mm3 09/03/16 00:10 WBC Morphology Not Reportable 09/03/16 00:10 Hypersegmented Neuts Not Reportable 09/03/16 00:10 Hyposegmented Neuts Not Reportable 09/03/16 00:10 Hypogranular Neuts Not Reportable 09/03/16 00:10 Smudge Cells Not Reportable 09/03/16 00:10 Toxic Granulation Not Reportable 09/03/16 00:10 Toxic Vacuolation Not Reportable 09/03/16 00:10 Dohle Bodies Not Reportable 09/03/16 00:10 Pelger-Huet Anomaly Not Reportable 09/03/16 00:10 Jasmina Rods Not Reportable 09/03/16 00:10 Platelet Estimate Appears normal 09/03/16 00:10 Clumped Platelets Not Reportable 09/03/16 00:10 Plt Clumps, EDTA Not Reportable 09/03/16 00:10 Large Platelets Not Reportable 09/03/16 00:10 Giant Platelets Not Reportable 09/03/16 00:10 Platelet Satelliting Not Reportable 09/03/16 00:10 Plt Morphology Comment Not Reportable 09/03/16 00:10 RBC Morphology Not Reportable 09/03/16 00:10 Dimorphic RBCs Not Reportable 09/03/16 00:10 Polychromasia Not Reportable 09/03/16 00:10 Hypochromasia 1+ 09/03/16 00:10 Poikilocytosis Not Reportable 09/03/16 00:10 Anisocytosis Not Reportable 09/03/16 00:10 Microcytosis Not Reportable 09/03/16 00:10 Macrocytosis Not Reportable 09/03/16 00:10 Spherocytes Not Reportable 09/03/16 00:10 Pappenheimer Bodies Not Reportable 09/03/16 00:10 Sickle Cells Not Reportable 09/03/16 00:10 Target Cells Not Reportable 09/03/16 00:10 Tear Drop Cells Not Reportable 09/03/16 00:10 Ovalocytes Not Reportable 09/03/16 00:10 Helmet Cells Not Reportable 09/03/16 00:10 [place] Bodies Not Reportable 09/03/16 00:10 [place] Rings Not Reportable 09/03/16 00:10 Chuck Cells Not Reportable 09/03/16 00:10 Bite Cells Not Reportable 09/03/16 00:10 Crenated Cell Not Reportable 09/03/16 00:10 Elliptocytes Not Reportable 09/03/16 00:10 Acanthocytes (Spur) Not Reportable 09/03/16 00:10 Rouleaux Not Reportable 09/03/16 00:10 Hemoglobin C Crystals Not Reportable 09/03/16 00:10 Schistocytes Not Reportable 09/03/16 00:10 Malaria parasites Not Reportable 09/03/16 00:10 Jun Bodies Not Reportable 09/03/16 00:10 Hem Pathologist Commnt No 09/03/16 00:10 PT 12.9 Sec. (12.2-14.9) 09/03/16 00:10 INR 0.98 (0.87-1.13) 09/03/16 00:10 APTT 29.0 Sec. (24.2-36.6) 09/03/16 00:10 Thrombin Time 16.8 Sec. (15.1-19.6) 09/03/16 00:10 POC ABG pH 7.457 (7.35-7.45) H 09/07/16 06:19 POC ABG pCO2 32.1 (35-45) L 09/07/16 06:19 POC ABG pO2 76 (80-105) L 09/07/16 06:19 POC ABG HCO3 22.7 09/07/16 06:19 POC ABG Total CO2 24 09/07/16 06:19 POC ABG O2 Sat 96 09/07/16 06:19 POC ABG Base Excess -1 09/07/16 06:19 FiO2 50 % 09/07/16 06:19 Sodium 134 mmol/L (137-145) L 09/07/16 11:43 Potassium 4.0 mmol/L (3.6-5.0) 09/07/16 11:43 Chloride 97.2 mmol/L (98-107) L 09/07/16 11:43 Carbon Dioxide 20 mmol/L (22-30) L 09/07/16 11:43 Anion Gap 21 mmol/L 09/07/16 11:43 BUN 58 mg/dL (7-17) H 09/07/16 11:43 Creatinine 2.9 mg/dL (0.7-1.2) H 09/07/16 11:43 Estimated GFR 21 ml/min 09/07/16 11:43 BUN/Creatinine Ratio 20.00 % 09/07/16 11:43 Glucose 147 mg/dL (65-100) H 09/07/16 11:43 POC Glucose 175 (70-105) H 09/07/16 11:50 Lactic Acid 1.50 mmol/L (0.7-2.0) 09/03/16 17:15 Calcium 8.5 mg/dL (8.4-10.2) 09/07/16 11:43 Phosphorus 2.40 mg/dL (2.5-4.5) L 09/07/16 11:43 Magnesium 2.40 mg/dL (1.7-2.3) H 09/07/16 11:43 Total Bilirubin 0.40 mg/dL (0.1-1.2) 09/07/16 11:43 AST 14 units/L (5-40) 09/07/16 11:43 ALT 11 units/L (7-56) 09/07/16 11:43 Alkaline Phosphatase 107 units/L (35-129) 09/07/16 11:43 Ammonia 27.0 umol/L (25-60) 09/07/16 08:37 Total Creatine Kinase 67 units/L (30-135) 09/03/16 11:26 CK-MB (CK-2) 1.4 ng/mL (0.0-4.0) 09/03/16 11:26 CK-MB (CK-2) Rel Index 2.0 (0-4) 09/03/16 11:26 Troponin T < 0.010 ng/mL (0.00-0.029) 09/06/16 10:43 C-Reactive Protein 0.60 mg/dL (0.00-1.30) 09/03/16 17:15 Total Protein 5.8 g/dL (6.3-8.2) L 09/07/16 11:43 Albumin 2.2 g/dL (3.9-5) L 09/07/16 11:43 Albumin/Globulin Ratio 0.6 % 09/07/16 11:43 Triglycerides 160 mg/dL (2-149) H 09/04/16 03:31 Cholesterol 189 mg/dL (50-199) 09/04/16 03:31 LDL Cholesterol Direct 126 mg/dL (50-130) 09/04/16 03:31 HDL Cholesterol 31 mg/dL (40-59) L 09/04/16 03:31 Cholesterol/HDL Ratio 6.09 % 09/04/16 03:31 TSH 1.010 mlU/mL (0.270-4.200) 09/07/16 08:37 HCG, Qual Negative (Negative) 09/03/16 00:10 Urine Color Yellow (Yellow) 09/07/16 02:47 Urine Turbidity Slightly-cloudy (Clear) 09/07/16 02:47 Urine pH 5.0 (5.0-7.0) 09/07/16 02:47 Ur Specific [place] 1.013 (1.003-1.030) 09/07/16 02:47 Urine Protein 30 mg/dl mg/dL (Negative) 09/07/16 02:47 Urine Glucose (UA) Neg mg/dL (Negative) 09/07/16 02:47 Urine Ketones Neg mg/dL (Negative) 09/07/16 02:47 Urine Blood Sm (Negative) 09/07/16 02:47 Urine Nitrite Neg (Negative) 09/07/16 02:47 Urine Bilirubin Neg (Negative) 09/07/16 02:47 Urine Urobilinogen < 2.0 mg/dL (<2.0) 09/07/16 02:47 Ur Leukocyte Esterase Lg (Negative) 09/07/16 02:47 Urine WBC (Auto) 68.0 /HPF (0.0-6.0) H 09/07/16 02:47 Urine RBC (Auto) 11.0 /HPF (0.0-6.0) 09/07/16 02:47 Urine Bacteria (Auto) 2+ /HPF (Negative) 09/07/16 02:47 Urine WBC Clumps 2+ /HPF 09/07/16 02:47 Hyaline Casts 4 /LPF 09/07/16 02:47 Urine Mucus Few /HPF 09/07/16 02:47 Urine Creatinine 106.1 mg/dL (0.1-20.0) H 09/07/16 02:47 Urine Sodium 14 mEq/L 09/07/16 02:47 Urine Opiates Screen Presumptive negative 09/03/16 15:11 Urine Methadone Screen Presumptive positive 09/03/16 15:11 Ur Barbiturates Screen Presumptive positive 09/03/16 15:11 Ur Phencyclidine Scrn Presumptive negative 09/03/16 15:11 Ur Amphetamines Screen Presumptive negative 09/03/16 15:11 U Benzodiazepines Scrn Presumptive negative 09/03/16 15:11 Urine Cocaine Screen Presumptive negative 09/03/16 15:11 U Marijuana (THC) Screen Presumptive positive 09/03/16 15:11 Drugs of Abuse Note Disclamer 09/03/16 15:11 Hep Bs Antigen Non-reactive (Negative) 09/07/16 09:20 Hepatitis C Antibody Non-reactive (NonReactive) 09/07/16 09:20 Blood Type A POSITIVE 09/03/16 00:10 Antibody Screen TNR 09/03/16 00:10 DELORIS Antibody Screen Negative 09/03/16 00:10 - Imaging and Cardiology Chest x-ray: image reviewed (right lower lung infiltrates)
[2016-09-07] MEDS ORDERED: ARTIFICIAL TEARS OPHTH OINT OU PRN (15:59)
[2016-09-07] MEDS ORDERED: VASELINE LIP THERAPY TP PRN (15:59)
[2016-09-07] MEDS ORDERED: NACL 0.9% 500 ML IV SCH (16:00)
[2016-09-07] MEDS: fentaNYL DRIP Premix 2,000 MCG/100 ML BAG IV SCH (16:36)
[2016-09-07] MEDS: DIPRIVAN 10 MG/ML 1,000 MG/100 ML BOTTLE IV SCH (16:37)
[2016-09-07] MEDS ORDERED: SUBLIMAZE IV ONE (17:00)
[2016-09-07] MEDS ORDERED: VERSED IV NR (17:00)
[2016-09-07 17:22] LABS: Creatinine,Urine 66.3 mg/dL (0.1-20.0)
--- NOTE | 2016-09-07 17:56 | XRay Report ---
FINAL REPORT EXAM: XR CHEST 1V AP HISTORY: R arm PICC placement and ETT placement TECHNIQUE: AP portable view of the chest PRIORS: CXR 04/08/2015 FINDINGS: Lines, tubes, and devices: The endotracheal tube terminates in the right mainstem bronchus. This should be pulled back at least 5-6 cm. A right subclavian PICC line is coiled within the right subclavian vein just beyond the right axilla. This should be repositioned. The tip terminates beneath the mid shaft of the right clavicle directed towards the mediastinum. Lungs and pleura: Trachea is normal in position. There appears to be mild volume loss in the left lung likely due to positioning of the ETT with hyperexpansion of the right lung. Mediastinal structures are slightly shifted toward the left. No pneumothorax is seen. Cardiomediastinal silhouette: The heart is enlarged but stable. Other: Bony structures are intact. IMPRESSION: 1. Endotracheal tube terminating in the right mainstem bronchus. This should be pulled back at least 5-6 cm. 2. Right subclavian PICC line is coiled in the region of the right subclavian vein. This should be repositioned. 3. Early volume loss on the left, likely due to positioning of the endotracheal tube.
[2016-09-07] MEDS: ZOSYN/NS 2.25 GM/50ML 2.25 GM/50 ML BAG IV SCH ×2 (18:39→18:42)
[2016-09-07] MEDS ORDERED: K-PHOS NEUTRAL PO SCH (20:00)
--- NOTE | 2016-09-07 21:52 | XRay Report ---
FINAL REPORT EXAM: XR ABDOMEN 1V AP HISTORY: DOBHOFF TUBE PLACEMENT TECHNIQUE: Supine views of the abdomen PRIORS: None. FINDINGS: A Dobhoff feeding tube is in place terminating in the distal stomach. Endotracheal tube terminates of above the melisa. The bowel gas pattern is nonspecific. No free air is identified. Soft tissues have no evidence for mass shadows or calcifications. Surgical clips in the right upper quadrant are noted. The bony structures are intact. IMPRESSION: Dobhoff feeding tube terminating in the distal stomach.
[2016-09-08] MEDS: HumuLIN R SUB-Q SCH ×4 (00:42→18:31)
[2016-09-08] MEDS: ZOSYN/NS 2.25 GM/50ML 2.25 GM/50 ML BAG IV SCH ×4 (00:42→18:31)
[2016-09-08] MEDS: DIPRIVAN 10 MG/ML 1,000 MG/100 ML BOTTLE IV SCH ×2 (00:48→21:59)
[2016-09-08] MEDS: fentaNYL DRIP Premix 2,000 MCG/100 ML BAG IV SCH ×2 (00:52→16:27)
--- NOTE | 2016-09-08 04:03 | Cat Scan Report ---
FINAL REPORT PROCEDURE: CT HEAD/BRAIN WO CON TECHNIQUE: Computerized tomography of the head was performed without contrast material. HISTORY: cva COMPARISON: 09/06/2016 FINDINGS: Skull and scalp: Normal. Paranasal sinuses: Slight opacification of the ethmoid sinuses. Ventricles and subarachnoid spaces: Normal. Cerebrum: There is a large area of hypoattenuation identified in the left temporal and parietal lobes, subacute infarction in this area is noted. Mild surrounding edema and slight mass effect upon the left lateral ventricle is again noted unchanged. Old lacunar infarction of the left thalamus/basal ganglia is again noted. No evidence of intracranial acute hemorrhage or hematoma.. Cerebellum and brainstem: No evidence of hemorrhage, acute infarction or mass. Vasculature: Normal. Comments: None. IMPRESSION: Continued evolution of a subacute left MCA infarct with slight mass effect and edema no evidence of acute hemorrhage.
[2016-09-08] MEDS: APRESOLINE PO SCH (06:36)
[2016-09-08] MEDS: CATAPRES PO SCH (06:36)
[2016-09-08 06:54] LABS: Hematocrit 25.5 % (30.3-42.9); Hemoglobin 8.1 gm/dl (10.1-14.3); Mean Corpuscular HGB Conc 32 % (30-34); Mean Corpuscular Volume 71 fl (79-97); Platelet Count 299 K/mm3 (140-440); Red Blood Count 3.58 M/mm3 (3.65-5.03); Red Cell Distribution Width 18.4 % (13.2-15.2)
[2016-09-08 07:03] LABS: Mean Corpuscular Hemoglobin 23 pg (28-32)
[2016-09-08 07:15] LABS: BUN/Creatinine Ratio 23.33; Calcium 8.5 mg/dL (8.4-10.2)
[2016-09-08 08:42] LABS: Anisocytosis 1+; Basophils % (Manual) 0 % (0.0-1.8); Eosinophils % (Manual) 0 % (0.0-4.3); Total Cells Counted 100
[2016-09-08 08:43] LABS: Hypochromasia 1+; Ovalocytes Few; Poikilocytosis 1+; Tear Drop Cells Rare
[2016-09-08 08:45] LABS: Platelet Estimate Consistent w Auto
[2016-09-08] MEDS: PEPCID FEEDTUBE SCH (09:20)
[2016-09-08] MEDS: ASPIRIN PO SCH (09:20)
[2016-09-08] MEDS: NORMODYNE PO SCH (09:20)
--- NOTE | 2016-09-08 09:20 | XRay Report ---
AP chest x-ray. History: Respiratory failure. Findings: The heart and lungs reveal no acute findings or interval changes. The endotracheal tube is now in satisfactory position with the tip approximately 3.9 cm above the melisa.
--- NOTE | 2016-09-08 10:23 | Progress Note ---
Assessment and Plan - Patient Problems (1) Acute respiratory failure with hypoxia Current Visit: Yes Status: Acute Plan to address problem: Continue with mechanical ventilatory support ETT has been adjusted- initially was a right mainstem intubation -VAP bundle, HOB >40 - Start VTE prophylaxis once follow upneuro- imaging does not show any evidence of intra-cranial hemorrhage - Stress ulcer prophylaxis -Bronchodilators- h/o asthma -VAP bundle addressed -Herndon catheter in this critically ill patient - Enteral nutrition, accucheck with glycemic control - Agitation management/analgesia - daily SATs and SBTs as tolerated - ABGs and CXR (2) Acute CVA (cerebrovascular accident) Current Visit: Yes Status: Acute Plan to address problem: tPA abruptly discontinued secondary to poorly controlled HTN CTScan -subacute MCA territory infarct Secondary stroke prophylaxis Neuroprotective measures Initiate enteric feeding Aspiration precautions With worsening encephalopathy will need neuro imaging to r/o new intracranial process or extension of acute CVA Neurology following (3) Respiratory alkalosis Current Visit: Yes Status: Acute (4) Chronic renal insufficiency Current Visit: Yes Status: Acute Qualifiers: Chronic kidney disease stage: C Plan to address problem: Continues to worsen- multifactorial, medications and hypotension Continue to monitor urine output. Avoid nephrotoxic agents Adjust medication dosage for CrCl Renal following (5) Uncontrolled hypertension Current Visit: Yes Status: Acute Plan to address problem: Episode of hypotension this morning. Monitor closely and adjust anti-hypertensive medications (6) Agitation Current Visit: Yes Status: Acute Plan to address problem: Continue agitation management. Avoid benzodiazepines Subjective Date of service: 09/08/16 Principal diagnosis: Acute CVA; Acute Encephalopathy Interval history: Remains agitated, not obeying commands. Seen and examined. Vitals, labs, medications, chart reviewed. Events overnight noted ETT to mechanical ventilatory support- on propofol and fentanyl with episodes of hypotension CXR done yesterday showed a possible right lower lobe infiltrate- empiric antibiotics for aspiration/HCAP initiated. Nutrition at goal. I suspect with her worsening agitation/lethargy there has been an expansion of her stroke with the possibility of hemorrahgic conversion or edema. Will need MRI Objective - Exam Narrative Exam: General: Nonresponsive s/p ETT to vent HEENT: MMM, EOMI cardiac: S1-S2 heard lungs: Mild expiratory wheezing heard abdomen: soft, nontender, nondistended bowel sounds positive extremities: no edema clubbing or cyanosis Skin: no rash or lesion Neuro: Nonresponsive, nonverbal, withdraws to touch and painful stimuli on the left side, right side of her body is weak. Babinski reflexes downgoing in both feet, right foot has diminished reflex Vital Signs - 12hr 09/07/16 09/07/16 09/07/16 22:29 22:30 23:00 Temperature Pulse Rate 78 59 L 64 Pulse Rate [ From Monitor] Respiratory 18 18 Rate Blood Pressure 150/90 166/99 148/89 O2 Sat by Pulse 100 100 Oximetry 09/07/16 09/08/16 09/08/16 23:30 00:00 00:30 Temperature 98.7 F Pulse Rate 64 66 65 Pulse Rate [ From Monitor] Respiratory 21 18 18 Rate Blood Pressure 143/95 143/84 147/84 O2 Sat by Pulse 100 100 100 Oximetry 09/08/16 09/08/16 09/08/16 01:00 01:30 01:39 Temperature Pulse Rate 63 66 64 Pulse Rate [ From Monitor] Respiratory 18 18 Rate Blood Pressure 142/79 149/91 149/91 O2 Sat by Pulse 100 99 99 Oximetry 09/08/16 09/08/16 09/08/16 02:00 02:30 03:00 Temperature Pulse Rate 61 63 68 Pulse Rate [ From Monitor] Respiratory 18 18 18 Rate Blood Pressure 146/83 138/78 142/84 O2 Sat by Pulse 100 100 100 Oximetry 09/08/16 09/08/16 09/08/16 03:42 04:00 04:30 Temperature Pulse Rate 77 70 66 Pulse Rate [ From Monitor] Respiratory 18 18 18 Rate Blood Pressure 169/96 125/70 125/68 O2 Sat by Pulse 100 100 97 Oximetry 09/08/16 09/08/16 09/08/16 05:00 05:30 05:36 Temperature Pulse Rate 65 58 L 61 Pulse Rate [ From Monitor] Respiratory 18 18 Rate Blood Pressure 123/66 134/77 123/66 O2 Sat by Pulse 96 97 97 Oximetry 09/08/16 09/08/16 09/08/16 06:00 06:30 06:36 Temperature 99.0 F Pulse Rate 58 L 67 58 L Pulse Rate [ From Monitor] Respiratory 19 21 Rate Blood Pressure 140/75 140/75 140/75 O2 Sat by Pulse 99 100 Oximetry 09/08/16 09/08/16 09/08/16 07:00 07:30 07:54 Temperature 95.6 F L Pulse Rate 79 111 H Pulse Rate [ From Monitor] Respiratory 18 19 Rate Blood Pressure 189/101 189/101 O2 Sat by Pulse 100 100 Oximetry 09/08/16 09/08/16 09/08/16 07:58 08:00 08:30 Temperature Pulse Rate 92 H 76 Pulse Rate [ 98 H From Monitor] Respiratory 18 18 Rate Blood Pressure 113/68 112/63 O2 Sat by Pulse 99 99 98 Oximetry 09/08/16 09/08/16 09:00 09:20 Temperature Pulse Rate 77 74 Pulse Rate [ From Monitor] Respiratory 17 Rate Blood Pressure 122/71 122/71 O2 Sat by Pulse 99 Oximetry Constitutional: no acute distress, agitated, appears uncomfortable, other ( sedated) Eyes: non-icteric ENT: oropharynx moist Neck: supple, no lymphadenopathy Effort: normal, very labored Ascultation: Bilateral: clear, diminished breath sounds, rhonchi Cardiovascular: regular rate and rhythm Gastrointestinal: normoactive bowel sounds, soft, non-distended Integumentary: normal Extremities: no cyanosis, no edema, pulses normal, no ischemia or petechiae Neurologic: non-focal exam (grossly), pupils equal and round, motor strength normal and Psychiatric: other (unable to assess) CBC and BMP: 09/09/16 03:00 09/09/16 03:00 ABG, PT/INR, D-dimer: ABG POC ABG pH 7.386 (7.35-7.45) 09/08/16 05:46 POC ABG pCO2 34.3 (35-45) L 09/08/16 05:46 POC ABG pO2 71 (80-105) L 09/08/16 05:46 POC ABG HCO3 20.6 09/08/16 05:46 POC ABG Total CO2 22 09/08/16 05:46 POC ABG O2 Sat 94 09/08/16 05:46 PT/INR, D-dimer PT 12.9 Sec. (12.2-14.9) 09/03/16 00:10 INR 0.98 (0.87-1.13) 09/03/16 00:10 Abnormal lab findings: Abnormal Labs 09/03/16 09/03/16 09/03/16 12:12 15:07 16:20 WBC RBC Hgb Hct MCV MCH RDW Lymph % (Auto) [place] # Seg Neutrophils % Seg Neuts % (Manual) Lymphocytes % (Manual) Seg Neutrophils # Seg Neutrophils # Man Lymphocytes # (Manual) POC ABG pH 7.452 H POC ABG pCO2 POC ABG pO2 Sodium Potassium Chloride Carbon Dioxide BUN Creatinine Glucose POC Glucose 178 H Phosphorus 2.20 L Magnesium 1.60 L Total Protein Albumin Triglycerides HDL Cholesterol Urine WBC (Auto) Urine Creatinine 09/03/16 09/03/16 09/03/16 17:57 17:58 23:50 WBC RBC Hgb Hct MCV MCH RDW Lymph % (Auto) [place] # Seg Neutrophils % Seg Neuts % (Manual) Lymphocytes % (Manual) Seg Neutrophils # Seg Neutrophils # Man Lymphocytes # (Manual) POC ABG pH POC ABG pCO2 POC ABG pO2 Sodium Potassium Chloride Carbon Dioxide BUN Creatinine Glucose POC Glucose 162 H 145 H Phosphorus 2.30 L Magnesium Total Protein Albumin Triglycerides HDL Cholesterol Urine WBC (Auto) Urine Creatinine 09/04/16 09/04/16 09/04/16 03:31 03:31 05:42 WBC RBC Hgb 9.7 L D Hct MCV 72 L MCH 23 L RDW 17.5 H Lymph % (Auto) 11.1 L [place] # Seg Neutrophils % 84.3 H Seg Neuts % (Manual) Lymphocytes % (Manual) Seg Neutrophils # 8.9 H Seg Neutrophils # Man Lymphocytes # (Manual) POC ABG pH POC ABG pCO2 POC ABG pO2 Sodium 135 L Potassium 2.9 L* Chloride 97.2 L Carbon Dioxide 19 L BUN Creatinine 1.7 H Glucose 170 H POC Glucose 152 H Phosphorus Magnesium Total Protein Albumin Triglycerides 160 H HDL Cholesterol 31 L Urine WBC (Auto) Urine Creatinine 09/04/16 09/04/16 09/04/16 11:34 17:46 23:29 WBC RBC Hgb Hct MCV MCH RDW Lymph % (Auto) [place] # Seg Neutrophils % Seg Neuts % (Manual) Lymphocytes % (Manual) Seg Neutrophils # Seg Neutrophils # Man Lymphocytes # (Manual) POC ABG pH POC ABG pCO2 POC ABG pO2 Sodium Potassium Chloride Carbon Dioxide BUN Creatinine Glucose POC Glucose 165 H 210 H 139 H Phosphorus Magnesium Total Protein Albumin Triglycerides HDL Cholesterol Urine WBC (Auto) Urine Creatinine 09/05/16 09/05/16 09/05/16 04:05 04:05 05:38 WBC RBC Hgb Hct MCV 76 L D MCH 23 L RDW 17.8 H Lymph % (Auto) [place] # Seg Neutrophils % Seg Neuts % (Manual) Lymphocytes % (Manual) Seg Neutrophils # Seg Neutrophils # Man Lymphocytes # (Manual) POC ABG pH POC ABG pCO2 POC ABG pO2 Sodium 134 L Potassium Chloride Carbon Dioxide 18 L BUN Creatinine 1.8 H Glucose 192 H POC Glucose 175 H Phosphorus Magnesium Total Protein Albumin Triglycerides HDL Cholesterol Urine WBC (Auto) Urine Creatinine 09/05/16 09/05/16 09/05/16 11:38 17:48 23:22 WBC RBC Hgb Hct MCV MCH RDW Lymph % (Auto) [place] # Seg Neutrophils % Seg Neuts % (Manual) Lymphocytes % (Manual) Seg Neutrophils # Seg Neutrophils # Man Lymphocytes # (Manual) POC ABG pH POC ABG pCO2 POC ABG pO2 Sodium Potassium Chloride Carbon Dioxide BUN Creatinine Glucose POC Glucose 164 H 186 H 195 H Phosphorus Magnesium Total Protein Albumin Triglycerides HDL Cholesterol Urine WBC (Auto) Urine Creatinine 09/06/16 09/06/16 09/06/16 04:12 05:59 07:32 WBC RBC Hgb Hct MCV MCH RDW Lymph % (Auto) [place] # Seg Neutrophils % Seg Neuts % (Manual) Lymphocytes % (Manual) Seg Neutrophils # Seg Neutrophils # Man Lymphocytes # (Manual) POC ABG pH 7.514 H POC ABG pCO2 29.1 L POC ABG pO2 72 L Sodium 133 L Potassium 3.4 L Chloride 94.9 L Carbon Dioxide 19 L BUN 30 H Creatinine 2.1 H Glucose 139 H POC Glucose 146 H Phosphorus Magnesium Total Protein Albumin Triglycerides HDL Cholesterol Urine WBC (Auto) Urine Creatinine 09/06/16 09/06/16 09/06/16 11:57 17:58 19:02 WBC RBC Hgb Hct MCV MCH RDW Lymph % (Auto) [place] # Seg Neutrophils % Seg Neuts % (Manual) Lymphocytes % (Manual) Seg Neutrophils # Seg Neutrophils # Man Lymphocytes # (Manual) POC ABG pH 7.465 H POC ABG pCO2 32.0 L POC ABG pO2 Sodium Potassium Chloride Carbon Dioxide BUN Creatinine Glucose POC Glucose 165 H 160 H Phosphorus Magnesium Total Protein Albumin Triglycerides HDL Cholesterol Urine WBC (Auto) Urine Creatinine 09/06/16 09/07/16 09/07/16 23:45 02:47 02:47 WBC RBC Hgb Hct MCV MCH RDW Lymph % (Auto) [place] # Seg Neutrophils % Seg Neuts % (Manual) Lymphocytes % (Manual) Seg Neutrophils # Seg Neutrophils # Man Lymphocytes # (Manual) POC ABG pH POC ABG pCO2 POC ABG pO2 Sodium Potassium Chloride Carbon Dioxide BUN Creatinine Glucose POC Glucose 204 H Phosphorus Magnesium Total Protein Albumin Triglycerides HDL Cholesterol Urine WBC (Auto) 68.0 H Urine Creatinine 106.1 H 09/07/16 09/07/16 09/07/16 04:50 06:19 06:39 WBC RBC Hgb Hct MCV MCH RDW Lymph % (Auto) [place] # Seg Neutrophils % Seg Neuts % (Manual) Lymphocytes % (Manual) Seg Neutrophils # Seg Neutrophils # Man Lymphocytes # (Manual) POC ABG pH 7.457 H POC ABG pCO2 32.1 L POC ABG pO2 76 L Sodium 132 L Potassium Chloride 94.7 L Carbon Dioxide BUN 53 H Creatinine 2.9 H Glucose 151 H POC Glucose 149 H Phosphorus Magnesium Total Protein Albumin Triglycerides HDL Cholesterol Urine WBC (Auto) Urine Creatinine 09/07/16 09/07/16 09/07/16 11:43 11:43 11:50 WBC 19.4 H RBC Hgb 8.3 L Hct 26.4 L D MCV 72 L D MCH 22 L RDW 17.9 H Lymph % (Auto) 8.5 L [place] # 1.0 H Seg Neutrophils % 85.8 H Seg Neuts % (Manual) Lymphocytes % (Manual) Seg Neutrophils # 16.6 H Seg Neutrophils # Man Lymphocytes # (Manual) POC ABG pH POC ABG pCO2 POC ABG pO2 Sodium 134 L Potassium Chloride 97.2 L Carbon Dioxide 20 L BUN 58 H Creatinine 2.9 H Glucose 147 H POC Glucose 175 H Phosphorus 2.40 L Magnesium 2.40 H Total Protein 5.8 L Albumin 2.2 L Triglycerides HDL Cholesterol Urine WBC (Auto) Urine Creatinine 09/07/16 09/07/16 09/07/16 16:00 17:31 23:50 WBC RBC Hgb Hct MCV MCH RDW Lymph % (Auto) [place] # Seg Neutrophils % Seg Neuts % (Manual) Lymphocytes % (Manual) Seg Neutrophils # Seg Neutrophils # Man Lymphocytes # (Manual) POC ABG pH POC ABG pCO2 POC ABG pO2 158 H Sodium Potassium Chloride Carbon Dioxide BUN Creatinine Glucose POC Glucose 216 H Phosphorus Magnesium Total Protein Albumin Triglycerides HDL Cholesterol Urine WBC (Auto) Urine Creatinine 66.3 H 09/08/16 09/08/16 09/08/16 05:46 06:18 06:18 WBC 17.8 H RBC 3.58 L Hgb 8.1 L Hct 25.5 L MCV 71 L MCH 23 L RDW 18.4 H Lymph % (Auto) [place] # Seg Neutrophils % Seg Neuts % (Manual) 92.0 H Lymphocytes % (Manual) 6.0 L Seg Neutrophils # Seg Neutrophils # Man 16.4 H Lymphocytes # (Manual) 1.1 L POC ABG pH POC ABG pCO2 34.3 L POC ABG pO2 71 L Sodium 133 L Potassium Chloride 96.9 L Carbon Dioxide 20 L BUN 63 H Creatinine 2.7 H Glucose 195 H POC Glucose Phosphorus Magnesium Total Protein Albumin Triglycerides HDL Cholesterol Urine WBC (Auto) Urine Creatinine 09/08/16 06:51 WBC RBC Hgb Hct MCV MCH RDW Lymph % (Auto) [place] # Seg Neutrophils % Seg Neuts % (Manual) Lymphocytes % (Manual) Seg Neutrophils # Seg Neutrophils # Man Lymphocytes # (Manual) POC ABG pH POC ABG pCO2 POC ABG pO2 Sodium Potassium Chloride Carbon Dioxide BUN Creatinine Glucose POC Glucose 204 H Phosphorus Magnesium Total Protein Albumin Triglycerides HDL Cholesterol Urine WBC (Auto) Urine Creatinine Chest x-ray: image reviewed Allied health notes reviewed: RT Critical care time in (mins) excluding proc time.: 32 Critical care attestation.: If time is entered above; I have spent that time in minutes in the direct care of this critically ill patient, excluding procedure time. Discussed care plan extensively with hospital medicine service
[2016-09-08] MEDS ORDERED: ATIVAN IV NR (10:45)
--- NOTE | 2016-09-08 11:11 | Progress Note ---
Assessment and Plan 46 YO F Hx Dm2/HTN/asthma/CKD/anxiety last well 09/02 @ 11:40 PM p/w eyes open, R facial droop and ? aphasia but then in CT pt laughing w/o facial droop. Tele neuro NIHSS 8. Her BP was 200s/100s and eventually family consented to tPA after initial declining but tpa infusion stopped after 5 mins d/t refractory HTN. Since then she has been in ICU intubated and agitated requiring sedation. On exam pt w/ depressed level of arousal, poor concentration, paucity of speech not following commands and withdraws from pain less briskly on R hemibody. CTH on admit chronic L thalamic ? lacune and L > R ? gliosis but poor image. f/u CTH 09/07 reveals large L MCA superior and inferior division infarct but no ICH or midline shift/compression of brain structures. UDS + Methadone/Barbs/THC. CDs neg. TTE neg.LDL 126. TSH/Nh4 neg. f/u CTH 09/08 continued evolution but no midline shift or ICH. Plan and Recommendation: 1. Telemetry bed w/ Q4 hour neuro checks 2. Vascular Imaging: MRA Head w/o Sg when possible 3. PRINCE to eval for possible cardiac source of embolism 4. 30 day ambulatory Tele monitor ? pAFib 5. Stroke in [place] Eval: ESR/CRP, Coags, RPR/VDRL, If Febrile-BCx, LP; Hypercoag screen-Protein C Activity, Protein S Ag, Antithrombin III, Activated Protein C resistance, Factor V Leiden, RVVT or APLAbs, Beta-2 GP Ab, Fibrinogen , Prothrombin gene [id number] mutation, MTHFR C677T, TYSON-1, HIV, SAHIL, Lactic Acid, Homocysteine, Cryoglobulin, Complement level, ANCA, Scl-70 Ab, anti-centromere Ab, Anti-Ro (SSA)/Anti-La (SSB), CATHIE, Antiproteinase 3, Lipoprotein A 6. Can lower MAPs by 10-15% daily to reach goal SBP 120-160 as permissive HTN period complete 7. Secondary stroke prevention: ASA 325mg Daily & upgrade to full dose statin therapy (Crestor 20mg or 40mg OR Lipitor 40mg or 80mg Daily OR Zocor 40mg QDay) for goal LDL < 70. No firm indication at this point for therapeutic anticoagulation as pt has not had AFib captured on telemetry monitoring. 8. F/E/N: isotonic IVF prn, prn replete, bedside speech/swallow eval prior to PO intake. Pt will likely need PEG 9. DVT Prophylaxis 10. Stroke education, PT/OT/Speech Therapy consults, CM evaluation 11. For any changes in neurologic status, pls obtain STAT CTH w/o contrast and call neurology Subjective Date of service: 09/08/16 Principal diagnosis: Acute CVA; Acute Encephalopathy Interval history: intubated Objective - Vital Sign Vital Signs - 12hr 09/07/16 09/08/16 09/08/16 23:30 00:00 00:30 Temperature 98.7 F Pulse Rate 64 66 65 Pulse Rate [ From Monitor] Respiratory 21 18 18 Rate Blood Pressure 143/95 143/84 147/84 O2 Sat by Pulse 100 100 100 Oximetry 09/08/16 09/08/16 09/08/16 01:00 01:30 01:39 Temperature Pulse Rate 63 66 64 Pulse Rate [ From Monitor] Respiratory 18 18 Rate Blood Pressure 142/79 149/91 149/91 O2 Sat by Pulse 100 99 99 Oximetry 09/08/16 09/08/16 09/08/16 02:00 02:30 03:00 Temperature Pulse Rate 61 63 68 Pulse Rate [ From Monitor] Respiratory 18 18 18 Rate Blood Pressure 146/83 138/78 142/84 O2 Sat by Pulse 100 100 100 Oximetry 09/08/16 09/08/16 09/08/16 03:42 04:00 04:30 Temperature Pulse Rate 77 70 66 Pulse Rate [ From Monitor] Respiratory 18 18 18 Rate Blood Pressure 169/96 125/70 125/68 O2 Sat by Pulse 100 100 97 Oximetry 09/08/16 09/08/16 09/08/16 05:00 05:30 05:36 Temperature Pulse Rate 65 58 L 61 Pulse Rate [ From Monitor] Respiratory 18 18 Rate Blood Pressure 123/66 134/77 123/66 O2 Sat by Pulse 96 97 97 Oximetry 09/08/16 09/08/16 09/08/16 06:00 06:30 06:36 Temperature 99.0 F Pulse Rate 58 L 67 58 L Pulse Rate [ From Monitor] Respiratory 19 21 Rate Blood Pressure 140/75 140/75 140/75 O2 Sat by Pulse 99 100 Oximetry 07/09/08/16 09/08/16 07:00 07:30 07:54 Temperature 95.6 F L Pulse Rate 79 111 H Pulse Rate [ From Monitor] Respiratory 18 19 Rate Blood Pressure 189/101 189/101 O2 Sat by Pulse 100 100 Oximetry 09/08/16 09/08/16 09/08/16 07:58 08:00 08:30 Temperature Pulse Rate 92 H 76 Pulse Rate [ 98 H From Monitor] Respiratory 18 18 Rate Blood Pressure 113/68 112/63 O2 Sat by Pulse 99 99 98 Oximetry 09/08/16 09/08/16 09/08/16 09:00 09:20 09:30 Temperature Pulse Rate 77 74 68 Pulse Rate [ From Monitor] Respiratory 17 18 Rate Blood Pressure 122/71 122/71 123/68 O2 Sat by Pulse 99 100 Oximetry 09/08/16 09/08/16 10:00 10:30 Temperature Pulse Rate 71 73 Pulse Rate [ From Monitor] Respiratory 18 18 Rate Blood Pressure 138/82 145/83 O2 Sat by Pulse 100 100 Oximetry - General Apperance Constitutional: acutely ill - EENT EENT: ATNC, PERRL, mucous membranes dry - Respiratory Respiratory: chest non-tender, no respiratory distress, decreased breath sounds - Cardiovascular Cardiovascular: regular rate Extremities: no peripheral edema bilat, no clubbing, cyanosis, no inflammation, no ischemia or petechiae - Gastrointestinal Gastrointestinal: normoactive bowel sounds, soft, non-distended - Integumentary Integumentary: normal - Neurologic Cranial nerve examination: PERRL, VFF, V1/V2/V3 grossly intact, intact, Intact Vestibulo-ocular r, intact corneal reflex, facial droop (on R) Speech examination: other Motor examination - right side: 3/5: biceps, triceps, wrist flexion, wrist extension, senior network engineer, hip flexors, knee extensors, dorsiflexion, toe extension (EHL) , plantarflexion Motor examination - left side: 4/5: biceps, triceps, wrist flexion, wrist extension, senior network engineer, hip flexors, knee extensors, dorsiflexion, toe extension (EHL) , plantarflexion Detailed sensory examination: intact, pain Reflex and gait examination: Babinski's sign (mute on R down on L) Reflexes: 2+: ankle (less brisk on L), bicep, knee, tricep - Musculoskeletal Musculoskeletal: no fluid collection, no pain, normal range of motion - Laboratory Findings CBC and BMP: 09/08/16 06:18 09/08/16 06:18 Abnormal Lab Findings: Abnormal Labs 09/03/16 09/03/16 09/03/16 12:12 15:07 16:20 WBC RBC Hgb Hct MCV MCH RDW Lymph % (Auto) [place] # Seg Neutrophils % Seg Neuts % (Manual) Lymphocytes % (Manual) Seg Neutrophils # Seg Neutrophils # Man Lymphocytes # (Manual) POC ABG pH 7.452 H POC ABG pCO2 POC ABG pO2 Sodium Potassium Chloride Carbon Dioxide BUN Creatinine Glucose POC Glucose 178 H Phosphorus 2.20 L Magnesium 1.60 L Total Protein Albumin Triglycerides HDL Cholesterol Urine WBC (Auto) Urine Creatinine 09/03/16 09/03/16 09/03/16 17:57 17:58 23:50 WBC RBC Hgb Hct MCV MCH RDW Lymph % (Auto) [place] # Seg Neutrophils % Seg Neuts % (Manual) Lymphocytes % (Manual) Seg Neutrophils # Seg Neutrophils # Man Lymphocytes # (Manual) POC ABG pH POC ABG pCO2 POC ABG pO2 Sodium Potassium Chloride Carbon Dioxide BUN Creatinine Glucose POC Glucose 162 H 145 H Phosphorus 2.30 L Magnesium Total Protein Albumin Triglycerides HDL Cholesterol Urine WBC (Auto) Urine Creatinine 09/04/16 09/04/16 09/04/16 03:31 03:31 05:42 WBC RBC Hgb 9.7 L D Hct MCV 72 L MCH 23 L RDW 17.5 H Lymph % (Auto) 11.1 L [place] # Seg Neutrophils % 84.3 H Seg Neuts % (Manual) Lymphocytes % (Manual) Seg Neutrophils # 8.9 H Seg Neutrophils # Man Lymphocytes # (Manual) POC ABG pH POC ABG pCO2 POC ABG pO2 Sodium 135 L Potassium 2.9 L* Chloride 97.2 L Carbon Dioxide 19 L BUN Creatinine 1.7 H Glucose 170 H POC Glucose 152 H Phosphorus Magnesium Total Protein Albumin Triglycerides 160 H HDL Cholesterol 31 L Urine WBC (Auto) Urine Creatinine 09/04/16 09/04/16 09/04/16 11:34 17:46 23:29 WBC RBC Hgb Hct MCV MCH RDW Lymph % (Auto) [place] # Seg Neutrophils % Seg Neuts % (Manual) Lymphocytes % (Manual) Seg Neutrophils # Seg Neutrophils # Man Lymphocytes # (Manual) POC ABG pH POC ABG pCO2 POC ABG pO2 Sodium Potassium Chloride Carbon Dioxide BUN Creatinine Glucose POC Glucose 165 H 210 H 139 H Phosphorus Magnesium Total Protein Albumin Triglycerides HDL Cholesterol Urine WBC (Auto) Urine Creatinine 09/05/16 09/05/16 09/05/16 04:05 04:05 05:38 WBC RBC Hgb Hct MCV 76 L D MCH 23 L RDW 17.8 H Lymph % (Auto) [place] # Seg Neutrophils % Seg Neuts % (Manual) Lymphocytes % (Manual) Seg Neutrophils # Seg Neutrophils # Man Lymphocytes # (Manual) POC ABG pH POC ABG pCO2 POC ABG pO2 Sodium 134 L Potassium Chloride Carbon Dioxide 18 L BUN Creatinine 1.8 H Glucose 192 H POC Glucose 175 H Phosphorus Magnesium Total Protein Albumin Triglycerides HDL Cholesterol Urine WBC (Auto) Urine Creatinine 09/05/16 09/05/16 09/05/16 11:38 17:48 23:22 WBC RBC Hgb Hct MCV MCH RDW Lymph % (Auto) [place] # Seg Neutrophils % Seg Neuts % (Manual) Lymphocytes % (Manual) Seg Neutrophils # Seg Neutrophils # Man Lymphocytes # (Manual) POC ABG pH POC ABG pCO2 POC ABG pO2 Sodium Potassium Chloride Carbon Dioxide BUN Creatinine Glucose POC Glucose 164 H 186 H 195 H Phosphorus Magnesium Total Protein Albumin Triglycerides HDL Cholesterol Urine WBC (Auto) Urine Creatinine 09/06/16 09/06/16 09/06/16 04:12 05:59 07:32 WBC RBC Hgb Hct MCV MCH RDW Lymph % (Auto) [place] # Seg Neutrophils % Seg Neuts % (Manual) Lymphocytes % (Manual) Seg Neutrophils # Seg Neutrophils # Man Lymphocytes # (Manual) POC ABG pH 7.514 H POC ABG pCO2 29.1 L POC ABG pO2 72 L Sodium 133 L Potassium 3.4 L Chloride 94.9 L Carbon Dioxide 19 L BUN 30 H Creatinine 2.1 H Glucose 139 H POC Glucose 146 H Phosphorus Magnesium Total Protein Albumin Triglycerides HDL Cholesterol Urine WBC (Auto) Urine Creatinine 09/06/16 09/06/16 09/06/16 11:57 17:58 19:02 WBC RBC Hgb Hct MCV MCH RDW Lymph % (Auto) [place] # Seg Neutrophils % Seg Neuts % (Manual) Lymphocytes % (Manual) Seg Neutrophils # Seg Neutrophils # Man Lymphocytes # (Manual) POC ABG pH 7.465 H POC ABG pCO2 32.0 L POC ABG pO2 Sodium Potassium Chloride Carbon Dioxide BUN Creatinine Glucose POC Glucose 165 H 160 H Phosphorus Magnesium Total Protein Albumin Triglycerides HDL Cholesterol Urine WBC (Auto) Urine Creatinine 09/06/16 09/07/16 09/07/16 23:45 02:47 02:47 WBC RBC Hgb Hct MCV MCH RDW Lymph % (Auto) [place] # Seg Neutrophils % Seg Neuts % (Manual) Lymphocytes % (Manual) Seg Neutrophils # Seg Neutrophils # Man Lymphocytes # (Manual) POC ABG pH POC ABG pCO2 POC ABG pO2 Sodium Potassium Chloride Carbon Dioxide BUN Creatinine Glucose POC Glucose 204 H Phosphorus Magnesium Total Protein Albumin Triglycerides HDL Cholesterol Urine WBC (Auto) 68.0 H Urine Creatinine 106.1 H 09/07/16 09/07/16 09/07/16 04:50 06:19 06:39 WBC RBC Hgb Hct MCV MCH RDW Lymph % (Auto) [place] # Seg Neutrophils % Seg Neuts % (Manual) Lymphocytes % (Manual) Seg Neutrophils # Seg Neutrophils # Man Lymphocytes # (Manual) POC ABG pH 7.457 H POC ABG pCO2 32.1 L POC ABG pO2 76 L Sodium 132 L Potassium Chloride 94.7 L Carbon Dioxide BUN 53 H Creatinine 2.9 H Glucose 151 H POC Glucose 149 H Phosphorus Magnesium Total Protein Albumin Triglycerides HDL Cholesterol Urine WBC (Auto) Urine Creatinine 09/07/16 09/07/16 09/07/16 11:43 11:43 11:50 WBC 19.4 H RBC Hgb 8.3 L Hct 26.4 L D MCV 72 L D MCH 22 L RDW 17.9 H Lymph % (Auto) 8.5 L [place] # 1.0 H Seg Neutrophils % 85.8 H Seg Neuts % (Manual) Lymphocytes % (Manual) Seg Neutrophils # 16.6 H Seg Neutrophils # Man Lymphocytes # (Manual) POC ABG pH POC ABG pCO2 POC ABG pO2 Sodium 134 L Potassium Chloride 97.2 L Carbon Dioxide 20 L BUN 58 H Creatinine 2.9 H Glucose 147 H POC Glucose 175 H Phosphorus 2.40 L Magnesium 2.40 H Total Protein 5.8 L Albumin 2.2 L Triglycerides HDL Cholesterol Urine WBC (Auto) Urine Creatinine 09/07/16 09/07/16 09/07/16 16:00 17:31 23:50 WBC RBC Hgb Hct MCV MCH RDW Lymph % (Auto) [place] # Seg Neutrophils % Seg Neuts % (Manual) Lymphocytes % (Manual) Seg Neutrophils # Seg Neutrophils # Man Lymphocytes # (Manual) POC ABG pH POC ABG pCO2 POC ABG pO2 158 H Sodium Potassium Chloride Carbon Dioxide BUN Creatinine Glucose POC Glucose 216 H Phosphorus Magnesium Total Protein Albumin Triglycerides HDL Cholesterol Urine WBC (Auto) Urine Creatinine 66.3 H 09/08/16 09/08/16 09/08/16 05:46 06:18 06:18 WBC 17.8 H RBC 3.58 L Hgb 8.1 L Hct 25.5 L MCV 71 L MCH 23 L RDW 18.4 H Lymph % (Auto) [place] # Seg Neutrophils % Seg Neuts % (Manual) 92.0 H Lymphocytes % (Manual) 6.0 L Seg Neutrophils # Seg Neutrophils # Man 16.4 H Lymphocytes # (Manual) 1.1 L POC ABG pH POC ABG pCO2 34.3 L POC ABG pO2 71 L Sodium 133 L Potassium Chloride 96.9 L Carbon Dioxide 20 L BUN 63 H Creatinine 2.7 H Glucose 195 H POC Glucose Phosphorus Magnesium Total Protein Albumin Triglycerides HDL Cholesterol Urine WBC (Auto) Urine Creatinine 09/08/16 09/08/16 06:51 10:55 WBC RBC Hgb Hct MCV MCH RDW Lymph % (Auto) [place] # Seg Neutrophils % Seg Neuts % (Manual) Lymphocytes % (Manual) Seg Neutrophils # Seg Neutrophils # Man Lymphocytes # (Manual) POC ABG pH POC ABG pCO2 POC ABG pO2 Sodium Potassium Chloride Carbon Dioxide BUN Creatinine Glucose POC Glucose 204 H 169 H Phosphorus Magnesium Total Protein Albumin Triglycerides HDL Cholesterol Urine WBC (Auto) Urine Creatinine
[2016-09-08] MEDS: APRESOLINE IV PRN ×2 (11:48→20:29)
--- NOTE | 2016-09-08 12:24 | Progress Note ---
Subjective Principal diagnosis: Acute CVA; Acute Encephalopathy Interval history: Time of evaluation 12 PM Patient was seen today for follow-up on multiple renal related issues Events of this hospitalization noted/currently she is on fentanyl as well as Zosyn Remains intubated/mentation altered Vitals labs intake output and medications were reviewed Social history: Reviewed Family history: Reviewed Allergy: Reviewed Physical examination Vitals: Reviewed HEENT: Oral mucosa moist Neck: Supple no JVD Chest: Bilateral clear to auscultation no crackles rales or wheezes Heart: Regular rate and rhythm S1 and S2 heard Abdomen: Soft nontender no voluntary guarding rigidity rebound Extremity: Minimal edema dry skin Dermatology; dry skin no edema Neurological; patient is not arousable Assessment and plan Renal failure: Patient's creatinine is currently stable, may have underlying chronic kidney disease/patient does have bilateral atrophic kidney other kidney ultrasound, has history of underlying chronic kidney disease likely moderately severe no acute emergent indication for renal replacement therapy Metabolic acidosis: To follow bicarbonate is borderline 20 Hyponatremia: Mild multifactorial at this time follow-up currently stable Status post stroke: Currently being followed by neurology Accelerated hypertension: Goal blood pressure under 140-150 at this time Overall prognosis appears to be guarded to poor at this time,Other specialities to comment We'll continue to follow and make recommendation from renal standpoint Objective - Vital Signs Vital signs: Vital Signs - 12hr 09/08/16 09/08/16 09/08/16 00:30 01:00 01:30 Temperature Pulse Rate 65 63 66 Pulse Rate [ From Monitor] Respiratory 18 18 18 Rate Blood Pressure 147/84 142/79 149/91 O2 Sat by Pulse 100 100 99 Oximetry 09/08/16 09/08/16 09/08/16 01:39 02:00 02:30 Temperature Pulse Rate 64 61 63 Pulse Rate [ From Monitor] Respiratory 18 18 Rate Blood Pressure 149/91 146/83 138/78 O2 Sat by Pulse 99 100 100 Oximetry 09/08/16 09/08/16 09/08/16 03:00 03:42 04:00 Temperature Pulse Rate 68 77 70 Pulse Rate [ From Monitor] Respiratory 18 18 18 Rate Blood Pressure 142/84 169/96 125/70 O2 Sat by Pulse 100 100 100 Oximetry 09/08/16 09/08/16 09/08/16 04:30 05:00 05:30 Temperature Pulse Rate 66 65 58 L Pulse Rate [ From Monitor] Respiratory 18 18 18 Rate Blood Pressure 125/68 123/66 134/77 O2 Sat by Pulse 97 96 97 Oximetry 09/08/16 09/08/16 09/08/16 05:36 06:00 06:30 Temperature 99.0 F Pulse Rate 61 58 L 67 Pulse Rate [ From Monitor] Respiratory 19 21 Rate Blood Pressure 123/66 140/75 140/75 O2 Sat by Pulse 97 99 100 Oximetry 09/08/16 09/08/16 09/08/16 06:36 07:00 07:30 Temperature Pulse Rate 58 L 79 111 H Pulse Rate [ From Monitor] Respiratory 18 19 Rate Blood Pressure 140/75 189/101 189/101 O2 Sat by Pulse 100 100 Oximetry 09/08/16 09/08/16 09/08/16 07:54 07:58 08:00 Temperature 95.6 F L Pulse Rate 92 H Pulse Rate [ 98 H From Monitor] Respiratory 18 Rate Blood Pressure 113/68 O2 Sat by Pulse 99 99 Oximetry 09/08/16 09/08/16 09/08/16 08:30 09:00 09:20 Temperature Pulse Rate 76 77 74 Pulse Rate [ From Monitor] Respiratory 18 17 Rate Blood Pressure 112/63 122/71 122/71 O2 Sat by Pulse 98 99 Oximetry 09/08/16 09/08/16 09/08/16 09:30 10:00 10:30 Temperature Pulse Rate 68 71 73 Pulse Rate [ From Monitor] Respiratory 18 18 18 Rate Blood Pressure 123/68 138/82 145/83 O2 Sat by Pulse 100 100 100 Oximetry 09/08/16 09/08/16 11:00 11:48 Temperature Pulse Rate 81 106 H Pulse Rate [ From Monitor] Respiratory 18 Rate Blood Pressure 138/82 235/127 O2 Sat by Pulse 100 Oximetry - Lab 09/08/16 06:18 09/08/16 06:18 Most recent lab results Calcium 8.5 mg/dL (8.4-10.2) 09/08/16 06:18 Phosphorus 4.30 mg/dL (2.5-4.5) D 09/08/16 06:18 Magnesium 2.40 mg/dL (1.7-2.3) H 09/07/16 11:43 Urine Creatinine 66.3 mg/dL (0.1-20.0) H 09/07/16 16:00 Urine Sodium 22 mEq/L 09/07/16 16:00
[2016-09-08 13:14] LABS: Erythrocyte Sedimentation Rate > 140.0 mm/Hr (0-20)
[2016-09-08] MEDS: HEPARIN SUB-Q SCH ×2 (13:55→22:02)
[2016-09-08] MEDS: NACL 0.9% 1000 ML 1,000 ML IV SCH (13:56)
--- NOTE | 2016-09-08 15:24 | XRay Report ---
PORTABLE CHEST INDICATION: Left arm PICC placement. COMPARISON: 2:11 AM earlier today. FINDINGS: Portable, frontal chest radiograph, 2:46 PM, 09/08/2016 demonstrates new left upper extremity PICC tip about the cavoatrial junction. Patient now rotated to the right with stable endotracheal and Dobbhoff tubes. Slightly crowded lung markings centrally and toward the bases. Oblique left mid lung platelike atelectasis extending from the hilum also now seen. Stable cardiomediastinal silhouette, EKG leads and osseous structures. CONCLUSION: Interval uncomplicated left upper extremity PICC placement, as described. Mild atelectasis also now seen. Thank you for the opportunity to participate in this patient's care.
[2016-09-08] MEDS: HALDOL IV PRN (17:30)
--- NOTE | 2016-09-08 19:07 | Magnetic Resonance Report ---
FINAL REPORT EXAM: MR BRAIN WO CON HISTORY: cva TECHNIQUE: Multi sequence, Multiplanar MR imaging is acquired without administration of gadolinium intravenous contrast. PRIORS: Head CT of the same date FINDINGS: Examination is compromised by motion artifact. A large area of restricted diffusion and edema extends throughout the watershed region in the left MCA/MATH AND PHYSICS INSTRUCTOR distribution. Right larger than left cerebellar infarctions are also present. Prominent perivascular space versus neural epithelial cyst or sequela of remote infarct within the left thalamus. Approximately 2 millimeters of [id number] shift at the level of the foramina of [place]. There is an face meant of the left occipital horn. No herniation. No acute hemorrhage. IMPRESSION: Large infarct within the left MCA/MATH AND PHYSICS INSTRUCTOR watershed region with additional ischemia in the right greater than left cerebellum. No acute intracranial hemorrhage. Associated edema results in effacement of the left occipital horn and approximately 2 millimeters of [id number] midline shift. CT follow-up is recommended. Notification initiated via [facility] nursing support worker immediately following the exam.
--- NOTE | 2016-09-08 19:20 | Magnetic Resonance Report ---
FINAL REPORT EXAM: MR MRA/MRV HEAD WO CON HISTORY: stroke TECHNIQUE: MR head angiogram is performed without contrast utilizing [id number] technique. Transaxial source images as well as three-dimensional angiographic reconstructions are provided. PRIORS: Noncontrast MRI and head CT of the same date FINDINGS: Examination is compromised by motion artifact. There is left-sided M2 and M3 middle cerebral arterial segment complete occlusion seen on axial images 75-82 is. No other severe stenosis is seen. The skull valley of [place] is intact. Normal caliber basilar artery. The right vertebral artery is not seen. Posterior cerebral arteries and their major branches are well opacified and normal in caliber. 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 The right vertebral artery is not seen, which can be normal anatomic variant but in the setting of cerebellar infarction is concerning for additional vascular occlusion. Neuro interventional consultation is suggested if not already obtained. Notification initiated via [facility] business support coordinator immediately following the exam.
[2016-09-08] MEDS ORDERED: PLAVIX PO ONE (22:30)
[2016-09-09] MEDS: HumuLIN R SUB-Q SCH ×4 (00:42→17:42)
[2016-09-09] MEDS: ZOSYN/NS 2.25 GM/50ML 2.25 GM/50 ML BAG IV SCH ×4 (00:43→22:18)
[2016-09-09 05:14] LABS: BUN/Creatinine Ratio 27.66; Calcium 8.9 mg/dL (8.4-10.2); Hematocrit 28.1 % (30.3-42.9); Hemoglobin 8.7 gm/dl (10.1-14.3); Mean Corpuscular HGB Conc 31 % (30-34); Mean Corpuscular Hemoglobin 22 pg (28-32); Mean Corpuscular Volume 72 fl (79-97); Platelet Count 485 K/mm3 (140-440); Red Blood Count 3.93 M/mm3 (3.65-5.03); Red Cell Distribution Width 18.4 % (13.2-15.2)
[2016-09-09] MEDS: HEPARIN SUB-Q SCH ×3 (05:41→22:20)
[2016-09-09] MEDS: NACL 0.9% 1000 ML 1,000 ML IV SCH (05:42)
[2016-09-09] MEDS: fentaNYL DRIP Premix 2,000 MCG/100 ML BAG IV SCH ×3 (05:43→21:52)
[2016-09-09 06:33] LABS: Anisocytosis 1+; Basophils % (Manual) 0 % (0.0-1.8); Eosinophils % (Manual) 0 % (0.0-4.3); Hypochromasia 1+; Platelet Estimate Consistent w Auto; Total Cells Counted 100
[2016-09-09] MEDS: APRESOLINE IV PRN (07:47)
[2016-09-09] MEDS: HALDOL IV PRN (08:05)
--- NOTE | 2016-09-09 08:18 | XRay Report ---
Portable chest: Respiratory failure. There is a long, vertical atelectasis in the left midlung. The lungs otherwise are clear. The heart may be borderline in size but there is no vascular congestion. Endotracheal, nasogastric, and left PICC line tubes are all unchanged in good position. These findings are unchanged compared to September 08. Impression: Left atelectasis. No acute change.
[2016-09-09] MEDS ORDERED: NORMODYNE IV ONE (09:00)
[2016-09-09] MEDS: ASPIRIN PO SCH (09:03)
[2016-09-09] MEDS: CATAPRES PO SCH ×2 (09:03→22:20)
[2016-09-09] MEDS: PEPCID FEEDTUBE SCH (09:04)
[2016-09-09] MEDS: NORVASC PO SCH (09:05)
[2016-09-09] MEDS: PLAVIX FEEDTUBE SCH (09:09)
--- NOTE | 2016-09-09 09:44 | Progress Note ---
Assessment and Plan - Patient Problems (1) Acute respiratory failure with hypoxia Current Visit: Yes Status: Acute Plan to address problem: Continue with mechanical ventilatory support Lung protective strategies -VAP bundle, HOB >40 - Start heparin for VTE prophylaxis - Stress ulcer prophylaxis -Bronchodilators- h/o asthma -VAP bundle addressed -Herndon catheter in this critically ill patient - Enteral nutrition, accucheck with glycemic control - Agitation management/analgesia - daily SATs and SBTs as tolerated - ABGs and CXR (2) Acute CVA (cerebrovascular accident) Current Visit: Yes Status: Acute Plan to address problem: tPA abruptly discontinued secondary to poorly controlled HTN CTScan -subacute MCA territory infarct Secondary stroke prophylaxis Neuroprotective measures Initiate enteric feeding Aspiration precautions Extension of stroke with edema and some midline shift. Neurology following (3) Chronic renal insufficiency Current Visit: Yes Status: Acute Qualifiers: Chronic kidney disease stage: C Plan to address problem: Continues to worsen- multifactorial, medications and hypotension Continue to monitor urine output. Avoid nephrotoxic agents Adjust medication dosage for CrCl Renal following (4) Uncontrolled hypertension Current Visit: Yes Status: Acute Plan to address problem: Monitor closely and adjust anti-hypertensive medications (5) Aspiration pneumonia Current Visit: Yes Status: Acute Qualifiers: Aspiration pneumonia type: A Laterality: L Lung location: L Plan to address problem: With leukocytosis and new infiltrate, continue empiric antibiotics for now. Get CXR in the next 24 hours hours to re-evaluate the infiltrate and make a decision on the need for ongoing antibiotic therapy Subjective Date of service: 09/09/16 Principal diagnosis: Acute CVA; Acute Encephalopathy Interval history: Remains agitated, not obeying commands. Seen and examined. Vitals, labs, medications, chart reviewed. On mechanical ventilatory support. MRI shows extension of the infarct with midline shift and edema Tube feedings at goal with anu stools. Discussed in interdisciplinary rounds- will require trach and PEG with LTACH and chronic wean Objective - Exam Narrative Exam: General: Nonresponsive s/p ETT to vent. No patient -ventilator dyssynchrony HEENT: MMM, EOMI, Small bowl feeding tube in nares Pupils reactive to light-sluggish cardiac: S1-S2 heard lungs: Decreased AE bilaterally, CTA abdomen: soft, nontender, nondistended bowel sounds positive extremities: no edema clubbing or cyanosis Skin: no rash or lesion Neuro: Nonresponsive, nonverbal, withdraws to touch and painful stimuli on the left side, right side of her body is weak. Babinski reflexes downgoing in both feet, right foot has diminished reflex Vital Signs - 12hr 09/08/16 09/08/16 09/08/16 22:00 22:30 23:00 Temperature Pulse Rate 138 H 142 H 145 H Respiratory 21 22 17 Rate Blood Pressure 188/84 183/95 173/92 O2 Sat by Pulse 96 95 95 Oximetry 09/08/16 09/08/16 09/09/16 23:30 23:32 00:00 Temperature 99.6 F Pulse Rate 140 H 140 H 105 H Respiratory 30 H 16 Rate Blood Pressure 164/89 173/92 103/52 O2 Sat by Pulse 93 99 94 Oximetry 09/09/16 09/09/16 09/09/16 00:30 01:00 01:30 Temperature Pulse Rate 122 H 110 H 112 H Respiratory 18 18 18 Rate Blood Pressure 142/71 122/64 174/82 O2 Sat by Pulse 97 95 Oximetry 09/09/16 09/09/16 09/09/16 02:00 02:30 03:00 Temperature Pulse Rate 124 H 104 H 101 H Respiratory 16 18 18 Rate Blood Pressure 228/124 155/85 155/87 O2 Sat by Pulse 95 93 Oximetry 09/09/16 09/09/16 09/09/16 03:30 03:37 04:00 Temperature 99.2 F Pulse Rate 98 H 100 H 135 H Respiratory 18 17 Rate Blood Pressure 149/86 155/87 O2 Sat by Pulse 95 96 95 Oximetry 09/09/16 09/09/16 09/09/16 04:30 05:00 05:30 Temperature Pulse Rate 114 H 130 H 102 H Respiratory 17 24 18 Rate Blood Pressure 219/117 266/143 169/95 O2 Sat by Pulse 95 95 94 Oximetry 09/09/16 09/09/16 09/09/16 06:07 06:30 07:00 Temperature Pulse Rate 139 H 102 H 110 H Respiratory 14 15 17 Rate Blood Pressure 158/91 189/102 O2 Sat by Pulse 100 96 94 Oximetry 09/09/16 09/09/16 09/09/16 07:26 07:31 07:47 Temperature 98.6 F Pulse Rate 134 H 132 H Respiratory 20 Rate Blood Pressure 242/143 267/167 O2 Sat by Pulse 96 Oximetry 09/09/16 09/09/16 09/09/16 07:56 08:00 08:01 Temperature Pulse Rate 131 H 130 H Respiratory 15 12 Rate Blood Pressure 254/146 217/105 O2 Sat by Pulse 100 98 97 Oximetry 09/09/16 09/09/16 09/09/16 08:43 09:03 09:05 Temperature Pulse Rate 123 H 97 H 95 H Respiratory Rate Blood Pressure 219/98 153/78 147/78 O2 Sat by Pulse Oximetry Constitutional: no acute distress, agitated, appears uncomfortable, other ( sedated) Eyes: non-icteric ENT: oropharynx moist Neck: supple, no lymphadenopathy Effort: normal, very labored Ascultation: Bilateral: clear, diminished breath sounds, rhonchi Cardiovascular: regular rate and rhythm Gastrointestinal: normoactive bowel sounds, soft, non-distended Integumentary: normal Extremities: no cyanosis, no edema, pulses normal, no ischemia or petechiae Neurologic: non-focal exam (grossly), pupils equal and round, motor strength normal and Psychiatric: other (unable to assess) CBC and BMP: 09/09/16 03:00 09/09/16 03:00 ABG, PT/INR, D-dimer: ABG POC ABG pH 7.372 (7.35-7.45) 09/09/16 04:04 POC ABG pCO2 38.0 (35-45) 09/09/16 04:04 POC ABG pO2 121 (80-105) H 09/09/16 04:04 POC ABG HCO3 22.0 09/09/16 04:04 POC ABG Total CO2 23 09/09/16 04:04 POC ABG O2 Sat 99 09/09/16 04:04 PT/INR, D-dimer PT 12.9 Sec. (12.2-14.9) 09/03/16 00:10 INR 0.98 (0.87-1.13) 09/03/16 00:10 Abnormal lab findings: Abnormal Labs 09/03/16 09/03/16 09/03/16 12:12 15:07 16:20 WBC RBC Hgb Hct MCV MCH RDW Plt Count Lymph % (Auto) [facility] # Seg Neutrophils % Seg Neuts % (Manual) Lymphocytes % (Manual) Seg Neutrophils # Seg Neutrophils # Man Lymphocytes # (Manual) Monocytes # (Manual) Fibrinogen POC ABG pH 7.452 H POC ABG pCO2 POC ABG pO2 Sodium Potassium Chloride Carbon Dioxide BUN Creatinine Glucose POC Glucose 178 H Phosphorus 2.20 L Magnesium 1.60 L C-Reactive Protein Total Protein Albumin Triglycerides HDL Cholesterol Urine WBC (Auto) Urine Creatinine Rheumatoid Factor 09/03/16 09/03/16 09/03/16 17:57 17:58 23:50 WBC RBC Hgb Hct MCV MCH RDW Plt Count Lymph % (Auto) [facility] # Seg Neutrophils % Seg Neuts % (Manual) Lymphocytes % (Manual) Seg Neutrophils # Seg Neutrophils # Man Lymphocytes # (Manual) Monocytes # (Manual) Fibrinogen POC ABG pH POC ABG pCO2 POC ABG pO2 Sodium Potassium Chloride Carbon Dioxide BUN Creatinine Glucose POC Glucose 162 H 145 H Phosphorus 2.30 L Magnesium C-Reactive Protein Total Protein Albumin Triglycerides HDL Cholesterol Urine WBC (Auto) Urine Creatinine Rheumatoid Factor 09/04/16 09/04/16 09/04/16 03:31 03:31 05:42 WBC RBC Hgb 9.7 L D Hct MCV 72 L MCH 23 L RDW 17.5 H Plt Count Lymph % (Auto) 11.1 L [facility] # Seg Neutrophils % 84.3 H Seg Neuts % (Manual) Lymphocytes % (Manual) Seg Neutrophils # 8.9 H Seg Neutrophils # Man Lymphocytes # (Manual) Monocytes # (Manual) Fibrinogen POC ABG pH POC ABG pCO2 POC ABG pO2 Sodium 135 L Potassium 2.9 L* Chloride 97.2 L Carbon Dioxide 19 L BUN Creatinine 1.7 H Glucose 170 H POC Glucose 152 H Phosphorus Magnesium C-Reactive Protein Total Protein Albumin Triglycerides 160 H HDL Cholesterol 31 L Urine WBC (Auto) Urine Creatinine Rheumatoid Factor 09/04/16 09/04/16 09/04/16 11:34 17:46 23:29 WBC RBC Hgb Hct MCV MCH RDW Plt Count Lymph % (Auto) [facility] # Seg Neutrophils % Seg Neuts % (Manual) Lymphocytes % (Manual) Seg Neutrophils # Seg Neutrophils # Man Lymphocytes # (Manual) Monocytes # (Manual) Fibrinogen POC ABG pH POC ABG pCO2 POC ABG pO2 Sodium Potassium Chloride Carbon Dioxide BUN Creatinine Glucose POC Glucose 165 H 210 H 139 H Phosphorus Magnesium C-Reactive Protein Total Protein Albumin Triglycerides HDL Cholesterol Urine WBC (Auto) Urine Creatinine Rheumatoid Factor 09/05/16 09/05/16 09/05/16 04:05 04:05 05:38 WBC RBC Hgb Hct MCV 76 L D MCH 23 L RDW 17.8 H Plt Count Lymph % (Auto) [facility] # Seg Neutrophils % Seg Neuts % (Manual) Lymphocytes % (Manual) Seg Neutrophils # Seg Neutrophils # Man Lymphocytes # (Manual) Monocytes # (Manual) Fibrinogen POC ABG pH POC ABG pCO2 POC ABG pO2 Sodium 134 L Potassium Chloride Carbon Dioxide 18 L BUN Creatinine 1.8 H Glucose 192 H POC Glucose 175 H Phosphorus Magnesium C-Reactive Protein Total Protein Albumin Triglycerides HDL Cholesterol Urine WBC (Auto) Urine Creatinine Rheumatoid Factor 09/05/16 09/05/16 09/05/16 11:38 17:48 23:22 WBC RBC Hgb Hct MCV MCH RDW Plt Count Lymph % (Auto) [facility] # Seg Neutrophils % Seg Neuts % (Manual) Lymphocytes % (Manual) Seg Neutrophils # Seg Neutrophils # Man Lymphocytes # (Manual) Monocytes # (Manual) Fibrinogen POC ABG pH POC ABG pCO2 POC ABG pO2 Sodium Potassium Chloride Carbon Dioxide BUN Creatinine Glucose POC Glucose 164 H 186 H 195 H Phosphorus Magnesium C-Reactive Protein Total Protein Albumin Triglycerides HDL Cholesterol Urine WBC (Auto) Urine Creatinine Rheumatoid Factor 09/06/16 09/06/16 09/06/16 04:12 05:59 07:32 WBC RBC Hgb Hct MCV MCH RDW Plt Count Lymph % (Auto) [facility] # Seg Neutrophils % Seg Neuts % (Manual) Lymphocytes % (Manual) Seg Neutrophils # Seg Neutrophils # Man Lymphocytes # (Manual) Monocytes # (Manual) Fibrinogen POC ABG pH 7.514 H POC ABG pCO2 29.1 L POC ABG pO2 72 L Sodium 133 L Potassium 3.4 L Chloride 94.9 L Carbon Dioxide 19 L BUN 30 H Creatinine 2.1 H Glucose 139 H POC Glucose 146 H Phosphorus Magnesium C-Reactive Protein Total Protein Albumin Triglycerides HDL Cholesterol Urine WBC (Auto) Urine Creatinine Rheumatoid Factor 09/06/16 09/06/16 09/06/16 11:57 17:58 19:02 WBC RBC Hgb Hct MCV MCH RDW Plt Count Lymph % (Auto) [facility] # Seg Neutrophils % Seg Neuts % (Manual) Lymphocytes % (Manual) Seg Neutrophils # Seg Neutrophils # Man Lymphocytes # (Manual) Monocytes # (Manual) Fibrinogen POC ABG pH 7.465 H POC ABG pCO2 32.0 L POC ABG pO2 Sodium Potassium Chloride Carbon Dioxide BUN Creatinine Glucose POC Glucose 165 H 160 H Phosphorus Magnesium C-Reactive Protein Total Protein Albumin Triglycerides HDL Cholesterol Urine WBC (Auto) Urine Creatinine Rheumatoid Factor 09/06/16 09/07/16 09/07/16 23:45 02:47 02:47 WBC RBC Hgb Hct MCV MCH RDW Plt Count Lymph % (Auto) [facility] # Seg Neutrophils % Seg Neuts % (Manual) Lymphocytes % (Manual) Seg Neutrophils # Seg Neutrophils # Man Lymphocytes # (Manual) Monocytes # (Manual) Fibrinogen POC ABG pH POC ABG pCO2 POC ABG pO2 Sodium Potassium Chloride Carbon Dioxide BUN Creatinine Glucose POC Glucose 204 H Phosphorus Magnesium C-Reactive Protein Total Protein Albumin Triglycerides HDL Cholesterol Urine WBC (Auto) 68.0 H Urine Creatinine 106.1 H Rheumatoid Factor 09/07/16 09/07/16 09/07/16 04:50 06:19 06:39 WBC RBC Hgb Hct MCV MCH RDW Plt Count Lymph % (Auto) [facility] # Seg Neutrophils % Seg Neuts % (Manual) Lymphocytes % (Manual) Seg Neutrophils # Seg Neutrophils # Man Lymphocytes # (Manual) Monocytes # (Manual) Fibrinogen POC ABG pH 7.457 H POC ABG pCO2 32.1 L POC ABG pO2 76 L Sodium 132 L Potassium Chloride 94.7 L Carbon Dioxide BUN 53 H Creatinine 2.9 H Glucose 151 H POC Glucose 149 H Phosphorus Magnesium C-Reactive Protein Total Protein Albumin Triglycerides HDL Cholesterol Urine WBC (Auto) Urine Creatinine Rheumatoid Factor 09/07/16 09/07/16 09/07/16 11:43 11:43 11:50 WBC 19.4 H RBC Hgb 8.3 L Hct 26.4 L D MCV 72 L D MCH 22 L RDW 17.9 H Plt Count Lymph % (Auto) 8.5 L [facility] # 1.0 H Seg Neutrophils % 85.8 H Seg Neuts % (Manual) Lymphocytes % (Manual) Seg Neutrophils # 16.6 H Seg Neutrophils # Man Lymphocytes # (Manual) Monocytes # (Manual) Fibrinogen POC ABG pH POC ABG pCO2 POC ABG pO2 Sodium 134 L Potassium Chloride 97.2 L Carbon Dioxide 20 L BUN 58 H Creatinine 2.9 H Glucose 147 H POC Glucose 175 H Phosphorus 2.40 L Magnesium 2.40 H C-Reactive Protein Total Protein 5.8 L Albumin 2.2 L Triglycerides HDL Cholesterol Urine WBC (Auto) Urine Creatinine Rheumatoid Factor 09/07/16 09/07/16 09/07/16 16:00 17:31 23:50 WBC RBC Hgb Hct MCV MCH RDW Plt Count Lymph % (Auto) [facility] # Seg Neutrophils % Seg Neuts % (Manual) Lymphocytes % (Manual) Seg Neutrophils # Seg Neutrophils # Man Lymphocytes # (Manual) Monocytes # (Manual) Fibrinogen POC ABG pH POC ABG pCO2 POC ABG pO2 158 H Sodium Potassium Chloride Carbon Dioxide BUN Creatinine Glucose POC Glucose 216 H Phosphorus Magnesium C-Reactive Protein Total Protein Albumin Triglycerides HDL Cholesterol Urine WBC (Auto) Urine Creatinine 66.3 H Rheumatoid Factor 09/08/16 09/08/16 09/08/16 05:46 06:18 06:18 WBC 17.8 H RBC 3.58 L Hgb 8.1 L Hct 25.5 L MCV 71 L MCH 23 L RDW 18.4 H Plt Count Lymph % (Auto) [facility] # Seg Neutrophils % Seg Neuts % (Manual) 92.0 H Lymphocytes % (Manual) 6.0 L Seg Neutrophils # Seg Neutrophils # Man 16.4 H Lymphocytes # (Manual) 1.1 L Monocytes # (Manual) Fibrinogen POC ABG pH POC ABG pCO2 34.3 L POC ABG pO2 71 L Sodium 133 L Potassium Chloride 96.9 L Carbon Dioxide 20 L BUN 63 H Creatinine 2.7 H Glucose 195 H POC Glucose Phosphorus Magnesium C-Reactive Protein Total Protein Albumin Triglycerides HDL Cholesterol Urine WBC (Auto) Urine Creatinine Rheumatoid Factor 09/08/16 09/08/16 09/08/16 06:51 10:55 11:48 WBC RBC Hgb Hct MCV MCH RDW Plt Count Lymph % (Auto) [facility] # Seg Neutrophils % Seg Neuts % (Manual) Lymphocytes % (Manual) Seg Neutrophils # Seg Neutrophils # Man Lymphocytes # (Manual) Monocytes # (Manual) Fibrinogen 750 H POC ABG pH POC ABG pCO2 POC ABG pO2 Sodium Potassium Chloride Carbon Dioxide BUN Creatinine Glucose POC Glucose 204 H 169 H Phosphorus Magnesium C-Reactive Protein Total Protein Albumin Triglycerides HDL Cholesterol Urine WBC (Auto) Urine Creatinine Rheumatoid Factor 09/08/16 09/08/16 09/08/16 11:48 11:48 18:25 WBC RBC Hgb Hct MCV MCH RDW Plt Count Lymph % (Auto) [facility] # Seg Neutrophils % Seg Neuts % (Manual) Lymphocytes % (Manual) Seg Neutrophils # Seg Neutrophils # Man Lymphocytes # (Manual) Monocytes # (Manual) Fibrinogen POC ABG pH POC ABG pCO2 POC ABG pO2 Sodium Potassium Chloride Carbon Dioxide BUN Creatinine Glucose POC Glucose 184 H Phosphorus Magnesium C-Reactive Protein 15.70 H Total Protein Albumin Triglycerides HDL Cholesterol Urine WBC (Auto) Urine Creatinine Rheumatoid Factor 24 H 09/09/16 09/09/16 09/09/16 00:24 03:00 03:00 WBC 27.9 H RBC Hgb 8.7 L Hct 28.1 L MCV 72 L MCH 22 L RDW 18.4 H Plt Count 485 H Lymph % (Auto) [facility] # Seg Neutrophils % Seg Neuts % (Manual) 77.0 H Lymphocytes % (Manual) 9.0 L Seg Neutrophils # Seg Neutrophils # Man 21.5 H Lymphocytes # (Manual) Monocytes # (Manual) 2.0 H Fibrinogen POC ABG pH POC ABG pCO2 POC ABG pO2 Sodium 135 L Potassium Chloride 96.3 L Carbon Dioxide 21 L BUN 83 H Creatinine 3.0 H Glucose 135 H POC Glucose 216 H Phosphorus Magnesium C-Reactive Protein Total Protein Albumin Triglycerides HDL Cholesterol Urine WBC (Auto) Urine Creatinine Rheumatoid Factor 09/09/16 09/09/16 04:04 05:41 WBC RBC Hgb Hct MCV MCH RDW Plt Count Lymph % (Auto) [facility] # Seg Neutrophils % Seg Neuts % (Manual) Lymphocytes % (Manual) Seg Neutrophils # Seg Neutrophils # Man Lymphocytes # (Manual) Monocytes # (Manual) Fibrinogen POC ABG pH POC ABG pCO2 POC ABG pO2 121 H Sodium Potassium Chloride Carbon Dioxide BUN Creatinine Glucose POC Glucose 155 H Phosphorus Magnesium C-Reactive Protein Total Protein Albumin Triglycerides HDL Cholesterol Urine WBC (Auto) Urine Creatinine Rheumatoid Factor Allied health notes reviewed: RT Critical care time in (mins) excluding proc time.: 32 Critical care attestation.: If time is entered above; I have spent that time in minutes in the direct care of this critically ill patient, excluding procedure time. Discussed with hospitalist service re the need for an early tracheostomy and PEG , transfer LTACH for chronic weaning.
[2016-09-09] MEDS ORDERED: VANCOMYCIN 1,250 MG in NACL 0.9% 250ML 250 ML IV ONE (10:00)
[2016-09-09] MEDS ORDERED: DIOVAN PO SCH (10:00)
[2016-09-09 10:33] LABS: Myeloperoxidase Antibody <1.0 AI (<1.0)
--- NOTE | 2016-09-09 11:27 | Progress Note ---
Assessment and Plan 46 YO F Hx Dm2/HTN/asthma/CKD/anxiety last well 09/02 @ 11:40 PM p/w eyes open, R facial droop and ? aphasia but then in CT pt laughing w/o facial droop. Tele neuro NIHSS 8. Her BP was 200s/100s and eventually family consented to tPA after initial declining but tpa infusion stopped after 5 mins d/t refractory HTN. Since then she has been in ICU intubated and agitated requiring sedation. On exam pt w/ depressed level of arousal, poor concentration, paucity of speech not following commands and withdraws from pain less briskly on R hemibody. CTH on admit chronic L thalamic ? lacune and L > R ? gliosis but poor image. f/u CTH 09/07 reveals large L MCA superior and inferior division infarct but no ICH or midline shift/compression of brain structures. UDS + Methadone/Barbs/THC. CDs neg. TTE neg.LDL 126. TSH/Nh4 neg. f/u CTH 09/08 continued evolution but no midline shift or ICH. 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 MRA Head confirms L M2/M3 occlusion. Plan and Recommendation: 1. Telemetry bed w/ Q4 hour neuro checks 2. Repeat CTH 09/10 to assess any ? increase in midline shift 3. PRINCE to eval for possible cardiac source of embolism 4. 30 day ambulatory Tele monitor ? pAFib 5. Stroke in [place] Eval: ESR/CRP, Coags, RPR/VDRL, If Febrile-BCx, LP; Hypercoag screen-Protein C Activity, Protein S Ag, Antithrombin III, Activated Protein C resistance, Factor V Leiden, RVVT or APLAbs, Beta-2 GP Ab, Fibrinogen , Prothrombin gene [id number] mutation, MTHFR C677T, TYSON-1, HIV, SAHIL, Lactic Acid, Homocysteine, Cryoglobulin, Complement level, ANCA, Scl-70 Ab, anti-centromere Ab, Anti-Ro (SSA)/Anti-La (SSB), CATHIE, Antiproteinase 3, Lipoprotein A 6. Can lower MAPs by 10-15% daily to reach goal SBP 120-160 as permissive HTN period complete 7. Secondary stroke prevention: ASA 325mg Daily & upgrade to full dose statin therapy (Crestor 20mg or 40mg OR Lipitor 40mg or 80mg Daily OR Zocor 40mg QDay) for goal LDL < 70. No firm indication at this point for therapeutic anticoagulation as pt has not had AFib captured on telemetry monitoring. 8. F/E/N: isotonic IVF prn, prn replete, bedside speech/swallow eval prior to PO intake. Pt will likely need PEG 9. DVT Prophylaxis 10. Stroke education, PT/OT/Speech Therapy consults, CM evaluation 11. For any changes in neurologic status, pls obtain STAT CTH w/o contrast and call neurology regulatory submissions associate Subjective Date of service: 09/09/16 Principal diagnosis: Acute CVA; Acute Encephalopathy Interval history: still intubated. Objective - Vital Sign Vital Signs - 12hr 09/08/16 09/08/16 09/09/16 23:30 23:32 00:00 Temperature 99.6 F Pulse Rate 140 H 140 H 105 H Respiratory 30 H 16 Rate Respiratory Rate [ Generalized] Blood Pressure 164/89 173/92 103/52 O2 Sat by Pulse 93 99 94 Oximetry 09/09/16 09/09/16 09/09/16 00:30 01:00 01:30 Temperature Pulse Rate 122 H 110 H 112 H Respiratory 18 18 18 Rate Respiratory Rate [ Generalized] Blood Pressure 142/71 122/64 174/82 O2 Sat by Pulse 97 95 Oximetry 09/09/16 09/09/16 09/09/16 02:00 02:30 03:00 Temperature Pulse Rate 124 H 104 H 101 H Respiratory 16 18 18 Rate Respiratory Rate [ Generalized] Blood Pressure 228/124 155/85 155/87 O2 Sat by Pulse 95 93 Oximetry 09/09/16 09/09/16 09/09/16 03:30 03:37 04:00 Temperature 99.2 F Pulse Rate 98 H 100 H 135 H Respiratory 18 17 Rate Respiratory Rate [ Generalized] Blood Pressure 149/86 155/87 O2 Sat by Pulse 95 96 95 Oximetry 09/09/16 09/09/16 09/09/16 04:30 05:00 05:30 Temperature Pulse Rate 114 H 130 H 102 H Respiratory 17 24 18 Rate Respiratory Rate [ Generalized] Blood Pressure 219/117 266/143 169/95 O2 Sat by Pulse 95 95 94 Oximetry 09/09/16 09/09/16 09/09/16 06:07 06:30 07:00 Temperature Pulse Rate 139 H 102 H 110 H Respiratory 14 15 17 Rate Respiratory Rate [ Generalized] Blood Pressure 158/91 189/102 O2 Sat by Pulse 100 96 94 Oximetry 09/09/16 09/09/16 09/09/16 07:26 07:31 07:47 Temperature 98.6 F Pulse Rate 134 H 132 H Respiratory 20 Rate Respiratory Rate [ Generalized] Blood Pressure 242/143 267/167 O2 Sat by Pulse 96 Oximetry 09/09/16 09/09/16 09/09/16 07:56 08:00 08:01 Temperature Pulse Rate 131 H 130 H Respiratory 15 12 Rate Respiratory Rate [ Generalized] Blood Pressure 254/146 217/105 O2 Sat by Pulse 100 98 97 Oximetry 09/09/16 09/09/16 09/09/16 08:30 08:43 09:00 Temperature Pulse Rate 123 H 123 H 101 H Respiratory 18 18 Rate Respiratory Rate [ Generalized] Blood Pressure 219/98 219/98 162/83 O2 Sat by Pulse 95 92 Oximetry 09/09/16 09/09/16 09/09/16 09:03 09:05 09:30 Temperature Pulse Rate 97 H 95 H 96 H Respiratory 18 Rate Respiratory Rate [ Generalized] Blood Pressure 153/78 147/78 149/78 O2 Sat by Pulse 95 Oximetry 09/09/16 09/09/16 09/09/16 10:00 10:30 11:00 Temperature Pulse Rate 101 H 99 H 122 H Respiratory 18 18 14 Rate Respiratory 13 Rate [ Generalized] Blood Pressure 181/90 155/81 264/125 O2 Sat by Pulse 96 96 97 Oximetry - General Apperance Constitutional: acutely ill - EENT EENT: PERRL, mucous membranes dry - Respiratory Respiratory: chest non-tender, normal breath sounds, no respiratory distress - Cardiovascular Cardiovascular: regular rate Extremities: no peripheral edema bilat, no clubbing, cyanosis, no inflammation, no ischemia or petechiae - Gastrointestinal Gastrointestinal: soft, non-distended - Neurologic Cranial nerve examination: PERRL, EOMI, intact, Intact Vestibulo-ocular r, intact corneal reflex, facial droop (on R) Speech examination: other (no speech, not following commands) Motor examination - right side: 3/5: biceps, triceps, wrist flexion, wrist extension, motor tune up specialist, hip flexors, knee extensors, dorsiflexion, toe extension (EHL) , plantarflexion Motor examination - left side: 4/5: biceps, triceps, wrist flexion, wrist extension, motor tune up specialist, hip flexors, knee extensors, dorsiflexion, toe extension (EHL) , plantarflexion Detailed sensory examination: intact, pain Reflex and gait examination: Babinski's sign (on R) - Musculoskeletal Musculoskeletal: no fluid collection, no pain, normal range of motion - Psychiatric Psychiatric: cooperative - Laboratory Findings CBC and BMP: 09/09/16 03:00 09/09/16 03:00 Abnormal Lab Findings: Abnormal Labs 09/03/16 09/03/16 09/03/16 12:12 15:07 16:20 WBC RBC Hgb Hct MCV MCH RDW Plt Count Lymph % (Auto) [place] # Seg Neutrophils % Seg Neuts % (Manual) Lymphocytes % (Manual) Seg Neutrophils # Seg Neutrophils # Man Lymphocytes # (Manual) Monocytes # (Manual) Fibrinogen POC ABG pH 7.452 H POC ABG pCO2 POC ABG pO2 Sodium Potassium Chloride Carbon Dioxide BUN Creatinine Glucose POC Glucose 178 H Phosphorus 2.20 L Magnesium 1.60 L C-Reactive Protein Total Protein Albumin Triglycerides HDL Cholesterol Urine WBC (Auto) Urine Creatinine Rheumatoid Factor 09/03/16 09/03/16 09/03/16 17:57 17:58 23:50 WBC RBC Hgb Hct MCV MCH RDW Plt Count Lymph % (Auto) [place] # Seg Neutrophils % Seg Neuts % (Manual) Lymphocytes % (Manual) Seg Neutrophils # Seg Neutrophils # Man Lymphocytes # (Manual) Monocytes # (Manual) Fibrinogen POC ABG pH POC ABG pCO2 POC ABG pO2 Sodium Potassium Chloride Carbon Dioxide BUN Creatinine Glucose POC Glucose 162 H 145 H Phosphorus 2.30 L Magnesium C-Reactive Protein Total Protein Albumin Triglycerides HDL Cholesterol Urine WBC (Auto) Urine Creatinine Rheumatoid Factor 09/04/16 09/04/16 09/04/16 03:31 03:31 05:42 WBC RBC Hgb 9.7 L D Hct MCV 72 L MCH 23 L RDW 17.5 H Plt Count Lymph % (Auto) 11.1 L [place] # Seg Neutrophils % 84.3 H Seg Neuts % (Manual) Lymphocytes % (Manual) Seg Neutrophils # 8.9 H Seg Neutrophils # Man Lymphocytes # (Manual) Monocytes # (Manual) Fibrinogen POC ABG pH POC ABG pCO2 POC ABG pO2 Sodium 135 L Potassium 2.9 L* Chloride 97.2 L Carbon Dioxide 19 L BUN Creatinine 1.7 H Glucose 170 H POC Glucose 152 H Phosphorus Magnesium C-Reactive Protein Total Protein Albumin Triglycerides 160 H HDL Cholesterol 31 L Urine WBC (Auto) Urine Creatinine Rheumatoid Factor 09/04/16 09/04/16 09/04/16 11:34 17:46 23:29 WBC RBC Hgb Hct MCV MCH RDW Plt Count Lymph % (Auto) [place] # Seg Neutrophils % Seg Neuts % (Manual) Lymphocytes % (Manual) Seg Neutrophils # Seg Neutrophils # Man Lymphocytes # (Manual) Monocytes # (Manual) Fibrinogen POC ABG pH POC ABG pCO2 POC ABG pO2 Sodium Potassium Chloride Carbon Dioxide BUN Creatinine Glucose POC Glucose 165 H 210 H 139 H Phosphorus Magnesium C-Reactive Protein Total Protein Albumin Triglycerides HDL Cholesterol Urine WBC (Auto) Urine Creatinine Rheumatoid Factor 09/05/16 09/05/16 09/05/16 04:05 04:05 05:38 WBC RBC Hgb Hct MCV 76 L D MCH 23 L RDW 17.8 H Plt Count Lymph % (Auto) [place] # Seg Neutrophils % Seg Neuts % (Manual) Lymphocytes % (Manual) Seg Neutrophils # Seg Neutrophils # Man Lymphocytes # (Manual) Monocytes # (Manual) Fibrinogen POC ABG pH POC ABG pCO2 POC ABG pO2 Sodium 134 L Potassium Chloride Carbon Dioxide 18 L BUN Creatinine 1.8 H Glucose 192 H POC Glucose 175 H Phosphorus Magnesium C-Reactive Protein Total Protein Albumin Triglycerides HDL Cholesterol Urine WBC (Auto) Urine Creatinine Rheumatoid Factor 09/05/16 09/05/16 09/05/16 11:38 17:48 23:22 WBC RBC Hgb Hct MCV MCH RDW Plt Count Lymph % (Auto) [place] # Seg Neutrophils % Seg Neuts % (Manual) Lymphocytes % (Manual) Seg Neutrophils # Seg Neutrophils # Man Lymphocytes # (Manual) Monocytes # (Manual) Fibrinogen POC ABG pH POC ABG pCO2 POC ABG pO2 Sodium Potassium Chloride Carbon Dioxide BUN Creatinine Glucose POC Glucose 164 H 186 H 195 H Phosphorus Magnesium C-Reactive Protein Total Protein Albumin Triglycerides HDL Cholesterol Urine WBC (Auto) Urine Creatinine Rheumatoid Factor 09/06/16 09/06/16 09/06/16 04:12 05:59 07:32 WBC RBC Hgb Hct MCV MCH RDW Plt Count Lymph % (Auto) [place] # Seg Neutrophils % Seg Neuts % (Manual) Lymphocytes % (Manual) Seg Neutrophils # Seg Neutrophils # Man Lymphocytes # (Manual) Monocytes # (Manual) Fibrinogen POC ABG pH 7.514 H POC ABG pCO2 29.1 L POC ABG pO2 72 L Sodium 133 L Potassium 3.4 L Chloride 94.9 L Carbon Dioxide 19 L BUN 30 H Creatinine 2.1 H Glucose 139 H POC Glucose 146 H Phosphorus Magnesium C-Reactive Protein Total Protein Albumin Triglycerides HDL Cholesterol Urine WBC (Auto) Urine Creatinine Rheumatoid Factor 09/06/16 09/06/16 09/06/16 11:57 17:58 19:02 WBC RBC Hgb Hct MCV MCH RDW Plt Count Lymph % (Auto) [place] # Seg Neutrophils % Seg Neuts % (Manual) Lymphocytes % (Manual) Seg Neutrophils # Seg Neutrophils # Man Lymphocytes # (Manual) Monocytes # (Manual) Fibrinogen POC ABG pH 7.465 H POC ABG pCO2 32.0 L POC ABG pO2 Sodium Potassium Chloride Carbon Dioxide BUN Creatinine Glucose POC Glucose 165 H 160 H Phosphorus Magnesium C-Reactive Protein Total Protein Albumin Triglycerides HDL Cholesterol Urine WBC (Auto) Urine Creatinine Rheumatoid Factor 09/06/16 09/07/16 09/07/16 23:45 02:47 02:47 WBC RBC Hgb Hct MCV MCH RDW Plt Count Lymph % (Auto) [place] # Seg Neutrophils % Seg Neuts % (Manual) Lymphocytes % (Manual) Seg Neutrophils # Seg Neutrophils # Man Lymphocytes # (Manual) Monocytes # (Manual) Fibrinogen POC ABG pH POC ABG pCO2 POC ABG pO2 Sodium Potassium Chloride Carbon Dioxide BUN Creatinine Glucose POC Glucose 204 H Phosphorus Magnesium C-Reactive Protein Total Protein Albumin Triglycerides HDL Cholesterol Urine WBC (Auto) 68.0 H Urine Creatinine 106.1 H Rheumatoid Factor 09/07/16 09/07/16 09/07/16 04:50 06:19 06:39 WBC RBC Hgb Hct MCV MCH RDW Plt Count Lymph % (Auto) [place] # Seg Neutrophils % Seg Neuts % (Manual) Lymphocytes % (Manual) Seg Neutrophils # Seg Neutrophils # Man Lymphocytes # (Manual) Monocytes # (Manual) Fibrinogen POC ABG pH 7.457 H POC ABG pCO2 32.1 L POC ABG pO2 76 L Sodium 132 L Potassium Chloride 94.7 L Carbon Dioxide BUN 53 H Creatinine 2.9 H Glucose 151 H POC Glucose 149 H Phosphorus Magnesium C-Reactive Protein Total Protein Albumin Triglycerides HDL Cholesterol Urine WBC (Auto) Urine Creatinine Rheumatoid Factor 09/07/16 09/07/16 09/07/16 11:43 11:43 11:50 WBC 19.4 H RBC Hgb 8.3 L Hct 26.4 L D MCV 72 L D MCH 22 L RDW 17.9 H Plt Count Lymph % (Auto) 8.5 L [place] # 1.0 H Seg Neutrophils % 85.8 H Seg Neuts % (Manual) Lymphocytes % (Manual) Seg Neutrophils # 16.6 H Seg Neutrophils # Man Lymphocytes # (Manual) Monocytes # (Manual) Fibrinogen POC ABG pH POC ABG pCO2 POC ABG pO2 Sodium 134 L Potassium Chloride 97.2 L Carbon Dioxide 20 L BUN 58 H Creatinine 2.9 H Glucose 147 H POC Glucose 175 H Phosphorus 2.40 L Magnesium 2.40 H C-Reactive Protein Total Protein 5.8 L Albumin 2.2 L Triglycerides HDL Cholesterol Urine WBC (Auto) Urine Creatinine Rheumatoid Factor 09/07/16 09/07/16 09/07/16 16:00 17:31 23:50 WBC RBC Hgb Hct MCV MCH RDW Plt Count Lymph % (Auto) [place] # Seg Neutrophils % Seg Neuts % (Manual) Lymphocytes % (Manual) Seg Neutrophils # Seg Neutrophils # Man Lymphocytes # (Manual) Monocytes # (Manual) Fibrinogen POC ABG pH POC ABG pCO2 POC ABG pO2 158 H Sodium Potassium Chloride Carbon Dioxide BUN Creatinine Glucose POC Glucose 216 H Phosphorus Magnesium C-Reactive Protein Total Protein Albumin Triglycerides HDL Cholesterol Urine WBC (Auto) Urine Creatinine 66.3 H Rheumatoid Factor 09/08/16 09/08/16 09/08/16 05:46 06:18 06:18 WBC 17.8 H RBC 3.58 L Hgb 8.1 L Hct 25.5 L MCV 71 L MCH 23 L RDW 18.4 H Plt Count Lymph % (Auto) [place] # Seg Neutrophils % Seg Neuts % (Manual) 92.0 H Lymphocytes % (Manual) 6.0 L Seg Neutrophils # Seg Neutrophils # Man 16.4 H Lymphocytes # (Manual) 1.1 L Monocytes # (Manual) Fibrinogen POC ABG pH POC ABG pCO2 34.3 L POC ABG pO2 71 L Sodium 133 L Potassium Chloride 96.9 L Carbon Dioxide 20 L BUN 63 H Creatinine 2.7 H Glucose 195 H POC Glucose Phosphorus Magnesium C-Reactive Protein Total Protein Albumin Triglycerides HDL Cholesterol Urine WBC (Auto) Urine Creatinine Rheumatoid Factor 07/09/08/16 09/08/16 06:51 10:55 11:48 WBC RBC Hgb Hct MCV MCH RDW Plt Count Lymph % (Auto) [place] # Seg Neutrophils % Seg Neuts % (Manual) Lymphocytes % (Manual) Seg Neutrophils # Seg Neutrophils # Man Lymphocytes # (Manual) Monocytes # (Manual) Fibrinogen 750 H POC ABG pH POC ABG pCO2 POC ABG pO2 Sodium Potassium Chloride Carbon Dioxide BUN Creatinine Glucose POC Glucose 204 H 169 H Phosphorus Magnesium C-Reactive Protein Total Protein Albumin Triglycerides HDL Cholesterol Urine WBC (Auto) Urine Creatinine Rheumatoid Factor 09/08/16 09/08/16 09/08/16 11:48 11:48 18:25 WBC RBC Hgb Hct MCV MCH RDW Plt Count Lymph % (Auto) [place] # Seg Neutrophils % Seg Neuts % (Manual) Lymphocytes % (Manual) Seg Neutrophils # Seg Neutrophils # Man Lymphocytes # (Manual) Monocytes # (Manual) Fibrinogen POC ABG pH POC ABG pCO2 POC ABG pO2 Sodium Potassium Chloride Carbon Dioxide BUN Creatinine Glucose POC Glucose 184 H Phosphorus Magnesium C-Reactive Protein 15.70 H Total Protein Albumin Triglycerides HDL Cholesterol Urine WBC (Auto) Urine Creatinine Rheumatoid Factor 24 H 09/09/16 09/09/16 09/09/16 00:24 03:00 03:00 WBC 27.9 H RBC Hgb 8.7 L Hct 28.1 L MCV 72 L MCH 22 L RDW 18.4 H Plt Count 485 H Lymph % (Auto) [place] # Seg Neutrophils % Seg Neuts % (Manual) 77.0 H Lymphocytes % (Manual) 9.0 L Seg Neutrophils # Seg Neutrophils # Man 21.5 H Lymphocytes # (Manual) Monocytes # (Manual) 2.0 H Fibrinogen POC ABG pH POC ABG pCO2 POC ABG pO2 Sodium 135 L Potassium Chloride 96.3 L Carbon Dioxide 21 L BUN 83 H Creatinine 3.0 H Glucose 135 H POC Glucose 216 H Phosphorus Magnesium C-Reactive Protein Total Protein Albumin Triglycerides HDL Cholesterol Urine WBC (Auto) Urine Creatinine Rheumatoid Factor 09/09/16 09/09/16 04:04 05:41 WBC RBC Hgb Hct MCV MCH RDW Plt Count Lymph % (Auto) [place] # Seg Neutrophils % Seg Neuts % (Manual) Lymphocytes % (Manual) Seg Neutrophils # Seg Neutrophils # Man Lymphocytes # (Manual) Monocytes # (Manual) Fibrinogen POC ABG pH POC ABG pCO2 POC ABG pO2 121 H Sodium Potassium Chloride Carbon Dioxide BUN Creatinine Glucose POC Glucose 155 H Phosphorus Magnesium C-Reactive Protein Total Protein Albumin Triglycerides HDL Cholesterol Urine WBC (Auto) Urine Creatinine Rheumatoid Factor
[2016-09-09] MEDS: CARDENE 50 MG in NACL 0.9% 250ML 230 ML IV SCH ×2 (11:31→21:53)
--- NOTE | 2016-09-09 11:36 | Progress Note ---
Subjective Principal diagnosis: Acute CVA; Acute Encephalopathy Interval history: Patient was seen today for follow-up of multiple renal related issues Her situation remains unchanged Interdisciplinary notes are also reviewed Remains intubated/mentation altered Vitals labs intake output and medications were reviewed Social history: Reviewed Family history: Reviewed Allergy: Reviewed Physical examination Vitals: Reviewed HEENT: Oral mucosa moist Neck: Supple no JVD Chest: Bilateral clear to auscultation no crackles rales or wheezes Heart: Regular rate and rhythm S1 and S2 heard Abdomen: Soft nontender no voluntary guarding rigidity rebound Extremity: Minimal edema dry skin Dermatology; dry skin no edema Neurological; patient is not arousable Assessment and plan Renal failure: Worsening renal function over time and the patient does have underlying chronic kidney disease with bilateral atrophic kidneys We will order labs patient may require renal replacement therapy for renal function continues to worsen / likle ymay have ATN with compromised kidney Metabolic acidosis: To follow bicarbonate is borderline 20 Hyponatremia: Mild multifactorial at this time follow-up currently stable, consider starting 300 mL of free water every 4 hours as needed Status post stroke: Currently being followed by neurology Accelerated hypertension: Goal blood pressure under 140-150 at this time Overall prognosis appears to be guarded to poor at this time,Other specialities to comment Discussed with patient's family member at length. Doses appears to be poor We'll continue to follow and make recommendation from renal standpoint Objective - Vital Signs Vital signs: Vital Signs - 12hr 09/09/16 09/09/16 09/09/16 00:00 00:30 01:00 Temperature 99.6 F Pulse Rate 105 H 122 H 110 H Respiratory 16 18 18 Rate Respiratory Rate [ Generalized] Blood Pressure 103/52 142/71 122/64 O2 Sat by Pulse 94 97 Oximetry 09/09/16 09/09/16 09/09/16 01:30 02:00 02:30 Temperature Pulse Rate 112 H 124 H 104 H Respiratory 18 16 18 Rate Respiratory Rate [ Generalized] Blood Pressure 174/82 228/124 155/85 O2 Sat by Pulse 95 95 Oximetry 09/09/16 09/09/16 09/09/16 03:00 03:30 03:37 Temperature Pulse Rate 101 H 98 H 100 H Respiratory 18 18 Rate Respiratory Rate [ Generalized] Blood Pressure 155/87 149/86 155/87 O2 Sat by Pulse 93 95 96 Oximetry 09/09/16 09/09/16 09/09/16 04:00 04:30 05:00 Temperature 99.2 F Pulse Rate 135 H 114 H 130 H Respiratory 17 17 24 Rate Respiratory Rate [ Generalized] Blood Pressure 219/117 266/143 O2 Sat by Pulse 95 95 95 Oximetry 09/09/16 09/09/16 09/09/16 05:30 06:07 06:30 Temperature Pulse Rate 102 H 139 H 102 H Respiratory 18 14 15 Rate Respiratory Rate [ Generalized] Blood Pressure 169/95 158/91 O2 Sat by Pulse 94 100 96 Oximetry 09/09/16 09/09/16 09/09/16 07:00 07:26 07:31 Temperature 98.6 F Pulse Rate 110 H 134 H Respiratory 17 20 Rate Respiratory Rate [ Generalized] Blood Pressure 189/102 242/143 O2 Sat by Pulse 94 96 Oximetry 09/09/16 09/09/16 09/09/16 07:47 07:56 08:00 Temperature Pulse Rate 132 H 131 H Respiratory 15 Rate Respiratory Rate [ Generalized] Blood Pressure 267/167 254/146 O2 Sat by Pulse 100 98 Oximetry 09/09/16 09/09/16 09/09/16 08:01 08:30 08:43 Temperature Pulse Rate 130 H 123 H 123 H Respiratory 12 18 Rate Respiratory Rate [ Generalized] Blood Pressure 217/105 219/98 219/98 O2 Sat by Pulse 97 95 Oximetry 09/09/16 09/09/16 09/09/16 09:00 09:03 09:05 Temperature Pulse Rate 101 H 97 H 95 H Respiratory 18 Rate Respiratory Rate [ Generalized] Blood Pressure 162/83 153/78 147/78 O2 Sat by Pulse 92 Oximetry 09/09/16 09/09/16 09/09/16 09:30 10:00 10:30 Temperature Pulse Rate 96 H 101 H 99 H Respiratory 18 18 18 Rate Respiratory 13 Rate [ Generalized] Blood Pressure 149/78 181/90 155/81 O2 Sat by Pulse 95 96 96 Oximetry 09/09/16 11:00 Temperature Pulse Rate 122 H Respiratory 14 Rate Respiratory Rate [ Generalized] Blood Pressure 264/125 O2 Sat by Pulse 97 Oximetry - Lab 09/10/16 05:17 09/10/16 05:17 Most recent lab results Calcium 8.9 mg/dL (8.4-10.2) 09/09/16 03:00 Phosphorus 4.30 mg/dL (2.5-4.5) D 09/08/16 06:18 Magnesium 2.40 mg/dL (1.7-2.3) H 09/07/16 11:43 Urine Creatinine 66.3 mg/dL (0.1-20.0) H 09/07/16 16:00 Urine Sodium 22 mEq/L 09/07/16 16:00
[2016-09-09] MEDS ORDERED: SODIUM CHLORIDE FLUSH SYRINGE 10 ML IV PRN (12:00)
--- NOTE | 2016-09-09 13:00 | Progress Note ---
Assessment and Plan Assessment and plan: 46-year-old woman with a history of hypertension, diabetes, asthma, hyperlipidemia, chronic kidney disease and anxiety who was admitted for acute CVA and accelerated hypertension, she had a hx of poor adherence with her medications, and uncontrolled htn. Patient's blood pressure systolically on admission was noted be greater than 260. TPA was started but this was discontinued after 5 minutes because her blood pressure became uncontrolled. The TPA was not initiated again because the patient was outside the TPA window. Acute CVA with infarct. sp TPA Continue neuro checks. Neurology input appreciated, CT shows continued evolution of left MCA infarct with slight mass effect and edema, and there is no hemorrhage Obtain MRI/MRA brain, obtain PRINCE carotid doppler negative Echo shows preserved systolic function but does show some left ventricular diastolic dysfunction Acute hypoxic respiratory failure requiring MV >24hrs Lungs are clear on exam today, CXR negative, continue oxygen supplementation Likely due to pneumonia and COPD exacerbation and evolution of her CVA intubated, continue MV Nosocomial acquired aspiration pneumonia/sepsis On broad-spectrum antibiotics, will obtain tracheal aspirate culture after she is intubated Continue sepsis protocol Asthma/COPD exacerbation Patient is on antibiotics, and BiPAP has been started on steroids. Given her mental status, intubation and mechanical ventilation is the appropriate treatments, case has been discussed with pulmonology patient to be intubated UTI Continue antibiotics as above, fup urine cx Acute Toxic Metabolic encephalopathy. Likely multifactorial, mostly secondary to evolution of CVA for restlessness, we checked troponin, EKG, CXR which were all negative Hypertensive Emergency she is now off labetalol drip optimize meds via NGTube Hypokalemia. Replete potassium as needed. hypophophatemia replete via NGT Diabetes type 2. Continue sliding-scale regular insulin and Accu-Cheks. Hyperlipidemia. Continue statin Nutrition continue tube feeds Chronic kidney disease, stage 3. The patient's creatinine May 2016 was 1.8. Currently 3. nephrology input appreciated ofelia due to infectious vs hypoperfusion with acc HTN renal us and urine lytes daily lytes avoid nephrotoxins Case discussed with the patient's family and pulmonology her POA is her Brother, Jam [phone] The high probability of a clinically significant, sudden or life threatening deterioration of the [cardiovascular and neurological] system(s) required my full and direct attention, intervention and personal management. The aggregate critical care time was [33] minutes. This time is in addition to time spent performing reported procedures but includes the following: [] Data Review and interpretation [] Patient assessment and monitoring of vital signs [] Documentation [] Medication orders and management History Interval history: She is intubated and sedated. RN reports that BP is better controlled today. Hospitalist Physical - Physical exam Narrative exam: General: Nonresponsive HEENT: MMM, EOMI cardiac: S1-S2 heard lungs: Mild expiratory wheezing heard abdomen: soft, nontender, nondistended bowel sounds positive extremities: no edema clubbing or cyanosis Skin: no rash or lesion Neuro: Nonresponsive, nonverbal, withdraws to touch and painful stimuli on the left side, right side of her body is weak. Babinski reflexes downgoing in both feet, right foot has diminished reflex - Constitutional Vitals: Temp Pulse Resp BP Pulse Ox 98.6 F 120 H 14 181/107 99 09/09/16 07:26 09/09/16 11:45 09/09/16 11:00 09/09/16 11:45 09/09/16 11:45 General appearance: Present: other (does not open eyes to name or stimulation; does not follow commands) Results - Labs CBC & Chem 7: 09/09/16 03:00 09/09/16 03:00 Labs: Laboratory Last Values WBC 27.9 K/mm3 (4.5-11.0) H 09/09/16 03:00 RBC 3.93 M/mm3 (3.65-5.03) 09/09/16 03:00 Hgb 8.7 gm/dl (10.1-14.3) L 09/09/16 03:00 Hct 28.1 % (30.3-42.9) L 09/09/16 03:00 MCV 72 fl (79-97) L 09/09/16 03:00 MCH 22 pg (28-32) L 09/09/16 03:00 MCHC 31 % (30-34) 09/09/16 03:00 RDW 18.4 % (13.2-15.2) H 09/09/16 03:00 Plt Count 485 K/mm3 (140-440) H 09/09/16 03:00 Lymph % (Auto) 8.5 % (13.4-35.0) L 09/07/16 11:43 Gage % (Auto) 5.4 % (0.0-7.3) 09/07/16 11:43 Eos % (Auto) 0.2 % (0.0-4.3) 09/07/16 11:43 Baso % (Auto) 0.1 % (0.0-1.8) 09/07/16 11:43 Lymph # 1.6 K/mm3 (1.2-5.4) 09/07/16 11:43 Gage # 1.0 K/mm3 (0.0-0.8) H 09/07/16 11:43 Eos # 0.0 K/mm3 (0.0-0.4) 09/07/16 11:43 Baso # 0.0 K/mm3 (0.0-0.1) 09/07/16 11:43 Add Manual Diff Complete 09/09/16 03:00 Total Counted 100 09/09/16 03:00 Seg Neutrophils % Cardiac Specialist 09/08/16 06:18 Seg Neuts % (Manual) 77.0 % (40.0-70.0) H 09/09/16 03:00 Band Neutrophils % 7.0 % 09/09/16 03:00 Lymphocytes % (Manual) 9.0 % (13.4-35.0) L 09/09/16 03:00 Reactive Lymphs % (Man) 0 % 09/09/16 03:00 Monocytes % (Manual) 7.0 % (0.0-7.3) 09/09/16 03:00 Eosinophils % (Manual) 0 % (0.0-4.3) 09/09/16 03:00 Basophils % (Manual) 0 % (0.0-1.8) 09/09/16 03:00 Metamyelocytes % 0 % 09/09/16 03:00 Myelocytes % 0 % 09/09/16 03:00 Promyelocytes % 0 % 09/09/16 03:00 Blast Cells % 0 % 09/09/16 03:00 Nucleated RBC % Not Reportable 09/09/16 03:00 Seg Neutrophils # 16.6 K/mm3 (1.8-7.7) H 09/07/16 11:43 Seg Neutrophils # Man 21.5 K/mm3 (1.8-7.7) H 09/09/16 03:00 Band Neutrophils # 2.0 K/mm3 09/09/16 03:00 Lymphocytes # (Manual) 2.5 K/mm3 (1.2-5.4) 09/09/16 03:00 Abs React Lymphs (Man) 0.0 K/mm3 09/09/16 03:00 Monocytes # (Manual) 2.0 K/mm3 (0.0-0.8) H 09/09/16 03:00 Eosinophils # (Manual) 0.0 K/mm3 (0.0-0.4) 09/09/16 03:00 Basophils # (Manual) 0.0 K/mm3 (0.0-0.1) 09/09/16 03:00 Metamyelocytes # 0.0 K/mm3 09/09/16 03:00 Myelocytes # 0.0 K/mm3 09/09/16 03:00 Promyelocytes # 0.0 K/mm3 09/09/16 03:00 Blast Cells # 0.0 K/mm3 09/09/16 03:00 WBC Morphology Not Reportable 09/09/16 03:00 Hypersegmented Neuts Not Reportable 09/09/16 03:00 Hyposegmented Neuts Not Reportable 09/09/16 03:00 Hypogranular Neuts Not Reportable 09/09/16 03:00 Smudge Cells Not Reportable 09/09/16 03:00 Toxic Granulation Not Reportable 09/09/16 03:00 Toxic Vacuolation Not Reportable 09/09/16 03:00 Dohle Bodies Not Reportable 09/09/16 03:00 Pelger-Huet Anomaly Not Reportable 09/09/16 03:00 Jasmina Rods Not Reportable 09/09/16 03:00 Platelet Estimate Consistent w auto 09/09/16 03:00 Clumped Platelets Not Reportable 09/09/16 03:00 Plt Clumps, EDTA Not Reportable 09/09/16 03:00 Large Platelets Not Reportable 09/09/16 03:00 Giant Platelets Not Reportable 09/09/16 03:00 Platelet Satelliting Not Reportable 09/09/16 03:00 Plt Morphology Comment Not Reportable 09/09/16 03:00 RBC Morphology Not Reportable 09/09/16 03:00 Dimorphic RBCs Not Reportable 09/09/16 03:00 Polychromasia Not Reportable 09/09/16 03:00 Hypochromasia 1+ 09/09/16 03:00 Poikilocytosis Not Reportable 09/09/16 03:00 Anisocytosis 1+ 09/09/16 03:00 Microcytosis 1+ 09/09/16 03:00 Macrocytosis Not Reportable 09/09/16 03:00 Spherocytes Not Reportable 09/09/16 03:00 Pappenheimer Bodies Not Reportable 09/09/16 03:00 Sickle Cells Not Reportable 09/09/16 03:00 Target Cells Not Reportable 09/09/16 03:00 Tear Drop Cells Not Reportable 09/09/16 03:00 Ovalocytes Not Reportable 09/09/16 03:00 Helmet Cells Not Reportable 09/09/16 03:00 [place] Bodies Not Reportable 09/09/16 03:00 [place] Rings Not Reportable 09/09/16 03:00 Chuck Cells Not Reportable 09/09/16 03:00 Bite Cells Not Reportable 09/09/16 03:00 Crenated Cell Not Reportable 09/09/16 03:00 Elliptocytes Not Reportable 09/09/16 03:00 Acanthocytes (Spur) Not Reportable 09/09/16 03:00 Rouleaux Not Reportable 09/09/16 03:00 Hemoglobin C Crystals Not Reportable 09/09/16 03:00 Schistocytes Not Reportable 09/09/16 03:00 Malaria parasites Not Reportable 09/09/16 03:00 ESR > 140.0 mm/Hr (0-20) 09/08/16 11:48 Jun Bodies Not Reportable 09/09/16 03:00 Hem Pathologist Commnt No 09/09/16 03:00 PT 12.9 Sec. (12.2-14.9) 09/03/16 00:10 INR 0.98 (0.87-1.13) 09/03/16 00:10 APTT 29.0 Sec. (24.2-36.6) 09/03/16 00:10 Thrombin Time 16.8 Sec. (15.1-19.6) 09/03/16 00:10 Fibrinogen 750 mg/dl (211-480) H 09/08/16 11:48 POC ABG pH 7.372 (7.35-7.45) 09/09/16 04:04 POC ABG pCO2 38.0 (35-45) 09/09/16 04:04 POC ABG pO2 121 (80-105) H 09/09/16 04:04 POC ABG HCO3 22.0 09/09/16 04:04 POC ABG Total CO2 23 09/09/16 04:04 POC ABG O2 Sat 99 09/09/16 04:04 POC ABG Base Excess -3 09/09/16 04:04 FiO2 30 % 09/09/16 04:04 Sodium 135 mmol/L (137-145) L 09/09/16 03:00 Potassium 4.6 mmol/L (3.6-5.0) 09/09/16 03:00 Chloride 96.3 mmol/L (98-107) L 09/09/16 03:00 Carbon Dioxide 21 mmol/L (22-30) L 09/09/16 03:00 Anion Gap 22 mmol/L 09/09/16 03:00 BUN 83 mg/dL (7-17) H 09/09/16 03:00 Creatinine 3.0 mg/dL (0.7-1.2) H 09/09/16 03:00 Estimated GFR 20 ml/min 09/09/16 03:00 BUN/Creatinine Ratio 27.66 % 09/09/16 03:00 Glucose 135 mg/dL (65-100) H 09/09/16 03:00 POC Glucose 186 (70-105) H 09/09/16 11:55 Lactic Acid 1.60 mmol/L (0.7-2.0) 09/08/16 15:40 Calcium 8.9 mg/dL (8.4-10.2) 09/09/16 03:00 Phosphorus 4.30 mg/dL (2.5-4.5) D 09/08/16 06:18 Magnesium 2.40 mg/dL (1.7-2.3) H 09/07/16 11:43 Total Bilirubin 0.40 mg/dL (0.1-1.2) 09/07/16 11:43 AST 14 units/L (5-40) 09/07/16 11:43 ALT 11 units/L (7-56) 09/07/16 11:43 Alkaline Phosphatase 107 units/L (35-129) 09/07/16 11:43 Ammonia 27.0 umol/L (25-60) 09/07/16 08:37 Total Creatine Kinase 67 units/L (30-135) 09/03/16 11:26 CK-MB (CK-2) 1.4 ng/mL (0.0-4.0) 09/03/16 11:26 CK-MB (CK-2) Rel Index 2.0 (0-4) 09/03/16 11:26 Troponin T < 0.010 ng/mL (0.00-0.029) 09/06/16 10:43 C-Reactive Protein 15.70 mg/dL (0.00-1.30) H 09/08/16 11:48 Total Protein 5.8 g/dL (6.3-8.2) L 09/07/16 11:43 Albumin 2.2 g/dL (3.9-5) L 09/07/16 11:43 Albumin/Globulin Ratio 0.6 % 09/07/16 11:43 Triglycerides 160 mg/dL (2-149) H 09/04/16 03:31 Cholesterol 189 mg/dL (50-199) 09/04/16 03:31 LDL Cholesterol Direct 126 mg/dL (50-130) 09/04/16 03:31 HDL Cholesterol 31 mg/dL (40-59) L 09/04/16 03:31 Cholesterol/HDL Ratio 6.09 % 09/04/16 03:31 TSH 1.010 mlU/mL (0.270-4.200) 09/07/16 08:37 HCG, Qual Negative (Negative) 09/03/16 00:10 Urine Color Yellow (Yellow) 09/07/16 02:47 Urine Turbidity Slightly-cloudy (Clear) 09/07/16 02:47 Urine pH 5.0 (5.0-7.0) 09/07/16 02:47 Ur Specific [place] 1.013 (1.003-1.030) 09/07/16 02:47 Urine Protein 30 mg/dl mg/dL (Negative) 09/07/16 02:47 Urine Glucose (UA) Neg mg/dL (Negative) 09/07/16 02:47 Urine Ketones Neg mg/dL (Negative) 09/07/16 02:47 Urine Blood Sm (Negative) 09/07/16 02:47 Urine Nitrite Neg (Negative) 09/07/16 02:47 Urine Bilirubin Neg (Negative) 09/07/16 02:47 Urine Urobilinogen < 2.0 mg/dL (<2.0) 09/07/16 02:47 Ur Leukocyte Esterase Lg (Negative) 09/07/16 02:47 Urine WBC (Auto) 68.0 /HPF (0.0-6.0) H 09/07/16 02:47 Urine RBC (Auto) 11.0 /HPF (0.0-6.0) 09/07/16 02:47 Urine Bacteria (Auto) 2+ /HPF (Negative) 09/07/16 02:47 Urine WBC Clumps 2+ /HPF 09/07/16 02:47 Hyaline Casts 4 /LPF 09/07/16 02:47 Urine Mucus Few /HPF 09/07/16 02:47 Urine Eosinophils None seen (None Seen) 09/07/16 16:00 Urine Creatinine 66.3 mg/dL (0.1-20.0) H 09/07/16 16:00 Urine Sodium 22 mEq/L 09/07/16 16:00 Random Vancomycin 2.3 ug/mL (0-40.0) 09/09/16 03:00 Urine Opiates Screen Presumptive negative 09/03/16 15:11 Urine Methadone Screen Presumptive positive 09/03/16 15:11 Ur Barbiturates Screen Presumptive positive 09/03/16 15:11 Ur Phencyclidine Scrn Presumptive negative 09/03/16 15:11 Ur Amphetamines Screen Presumptive negative 09/03/16 15:11 U Benzodiazepines Scrn Presumptive negative 09/03/16 15:11 Urine Cocaine Screen Presumptive negative 09/03/16 15:11 U Marijuana (THC) Screen Presumptive positive 09/03/16 15:11 Drugs of Abuse Note Disclamer 09/03/16 15:11 Rheumatoid Factor 24 IU/ml (0-13) H 09/08/16 11:48 Proteinase 3 (PR3) Ab <1.0 AI (<1.0) 09/07/16 09:20 Myeloperoxidase Ab <1.0 AI (<1.0) 09/07/16 09:20 RPR Nonreactive (Nonreactive) 09/08/16 11:48 Hep Bs Antigen Non-reactive (Negative) 09/07/16 09:20 Hepatitis C Antibody Non-reactive (NonReactive) 09/07/16 09:20 HIV 1&2 Antibody Rapid Non react (Non React) 09/08/16 11:48 HIV P24 Antigen Non react (Non React) 09/08/16 11:48 Blood Type A POSITIVE 09/03/16 00:10 Antibody Screen TNR 09/03/16 00:10 DELORIS Antibody Screen Negative 09/03/16 00:10
--- NOTE | 2016-09-09 13:03 | Event Note ---
Date: 09/09/[address] Willis, her prognosis is very poor and will most likely need trache and peg, and LTACH placement Will discuss this with her family and consult [place] Spoke with her RN, Meg, her BP went up today, her BP meds were held for hypotension last night -initiate clonidine at reduced dose, restart amlodipine, add labetol IV PRN
--- NOTE | 2016-09-09 13:03 | XRay Report ---
KUB: Feeding tube placement. A nasogastric tube is present. The tip of the tube is either in the distal antrum or proximal duodenum. No other significant findings.
[2016-09-09 14:36] LABS: Bacteria,Urine 1+ /HPF (Negative); Bilirubin,Urine NEG (Negative); Blood,Urine LG (Negative); Color,Urine Yellow (Yellow); Mucus,Urine FEW /HPF; Urobilinogen,Urine < 2.0 mg/dL (<2.0)
[2016-09-09 14:37] LABS: RBC,Urine > 182.0 /HPF (0.0-6.0)
[2016-09-09] MEDS: DIPRIVAN 10 MG/ML 1,000 MG/100 ML BOTTLE IV SCH ×2 (15:54→21:49)
[2016-09-10] MEDS: HumuLIN R SUB-Q SCH ×4 (00:18→17:29)
--- NOTE | 2016-09-10 03:35 | XRay Report ---
FINAL REPORT PROCEDURE: XR CHEST 1V AP TECHNIQUE: Chest radiograph anteroposterior view. CPT 15306 HISTORY: follow up respiratory failure COMPARISON: 09/07/2016 FINDINGS: Heart: Normal. Mediastinum/Vessels: Normal. Lungs/Pleural space: Normal. Bony thorax: No acute osseous abnormality. Life support devices: The endotracheal tube ends 4 centimeters above the melisa. A nasogastric tube ends below the hemidiaphragms. A left PICC catheter ends in the SVC. IMPRESSION: The lungs are clear. Multiple tubes and lines are properly positioned..
[2016-09-10] MEDS: APRESOLINE IV PRN ×2 (04:23→18:20)
[2016-09-10] MEDS: fentaNYL DRIP Premix 2,000 MCG/100 ML BAG IV SCH ×4 (05:14→17:48)
[2016-09-10] MEDS: ZOSYN/NS 2.25 GM/50ML 2.25 GM/50 ML BAG IV SCH (05:17)
[2016-09-10 06:04] LABS: Hematocrit 22.9 % (30.3-42.9); Hemoglobin 7.3 gm/dl (10.1-14.3); Mean Corpuscular HGB Conc 32 % (30-34); Mean Corpuscular Volume 71 fl (79-97); Platelet Count 381 K/mm3 (140-440); Red Blood Count 3.25 M/mm3 (3.65-5.03); Red Cell Distribution Width 18.4 % (13.2-15.2)
[2016-09-10 06:05] LABS: Mean Corpuscular Hemoglobin 23 pg (28-32)
[2016-09-10] MEDS: HEPARIN SUB-Q SCH ×3 (06:19→21:42)
[2016-09-10 07:12] LABS: Basophils % (Manual) 0 % (0.0-1.8); Eosinophils % (Manual) 0 % (0.0-4.3); Myelocytes # (Manual) 0.3 K/mm3; Total Cells Counted 100
[2016-09-10 07:13] LABS: Hypochromasia 1+; Platelet Clumps Rare
[2016-09-10] MEDS: DIPRIVAN 10 MG/ML 1,000 MG/100 ML BOTTLE IV SCH ×2 (07:15→17:49)
[2016-09-10 07:30] LABS: BUN/Creatinine Ratio 32.06; Calcium 8.1 mg/dL (8.4-10.2)
[2016-09-10] MEDS: CATAPRES PO SCH ×2 (09:24→21:41)
[2016-09-10] MEDS: PEPCID FEEDTUBE SCH (09:24)
[2016-09-10] MEDS: NORVASC PO SCH (09:24)
[2016-09-10] MEDS: ASPIRIN PO SCH (09:24)
[2016-09-10] MEDS: PLAVIX FEEDTUBE SCH (09:25)
--- NOTE | 2016-09-10 09:49 | Progress Note ---
Assessment and Plan - Patient Problems (1) Acute respiratory failure with hypoxia Current Visit: Yes Status: Acute Plan to address problem: Continue with mechanical ventilatory support Lung protective strategies -VAP bundle, HOB >40 - Start heparin for VTE prophylaxis - Stress ulcer prophylaxis -Bronchodilators- h/o asthma -VAP bundle addressed -[place] catheter in this critically ill patient - Enteral nutrition, accucheck with glycemic control - Agitation management/analgesia - daily SATs and SBTs as tolerated - ABGs and CXR (2) Acute CVA (cerebrovascular accident) Current Visit: Yes Status: Acute Plan to address problem: tPA abruptly discontinued secondary to poorly controlled HTN CTScan -subacute MCA territory infarct Secondary stroke prophylaxis Neuroprotective measures Initiate enteric feeding Aspiration precautions Extension of stroke with edema and some midline shift. Neurology following (3) Chronic renal insufficiency Current Visit: Yes Status: Acute Qualifiers: Chronic kidney disease stage: C Plan to address problem: Continues to worsen- multifactorial, medications and hypotension Continue to monitor urine output. Avoid nephrotoxic agents Adjust medication dosage for CrCl Renal following (4) Uncontrolled hypertension Current Visit: Yes Status: Acute Plan to address problem: Monitor closely and adjust anti-hypertensive medications Subjective Date of service: 09/10/16 Principal diagnosis: Acute CVA; Acute Encephalopathy Interval history: Remains agitated, not obeying commands. Seen and examined. Vitals, labs, medications, chart reviewed. On mechanical ventilatory support. MRI shows extension of the infarct with midline shift and edema Tube feedings at goal with anu stools. Discussed in interdisciplinary rounds- will require trach and PEG with LTACH and chronic wean Objective - Exam Narrative Exam: General: sedated HEENT: MMM, EOMI cardiac: S1-S2 heard lungs: ventilated breath sounds abdomen: soft, nontender, nondistended bowel sounds positive extremities: no edema clubbing or cyanosis Skin: no rash or lesion Neuro: Nonresponsive, nonverbal, withdraws to touch and painful stimuli on the left side,Right hemipareis. Babinski reflexes downgoing in both feet, right foot has diminished reflex Vital Signs - 12hr 09/09/16 09/09/16 09/09/16 22:00 22:20 22:30 Temperature Pulse Rate 89 99 H 85 Pulse Rate [ None] Respiratory 19 18 Rate Respiratory Rate [ Generalized] Blood Pressure 147/75 147/75 146/73 O2 Sat by Pulse 96 96 Oximetry 09/09/16 09/09/16 09/10/16 23:00 23:30 00:00 Temperature 99.1 F Pulse Rate 88 83 95 H Pulse Rate [ 105 H None] Respiratory 17 17 17 Rate Respiratory Rate [ Generalized] Blood Pressure 158/79 142/73 171/84 O2 Sat by Pulse 96 96 95 Oximetry 09/10/16 09/10/16 09/10/16 00:16 00:30 01:01 Temperature Pulse Rate 98 H 96 H 101 H Pulse Rate [ None] Respiratory 20 19 Rate Respiratory Rate [ Generalized] Blood Pressure 171/84 151/85 151/85 O2 Sat by Pulse 98 96 99 Oximetry 09/10/16 09/10/16 09/10/16 01:30 02:00 02:30 Temperature Pulse Rate 102 H 97 H 85 Pulse Rate [ None] Respiratory 16 14 17 Rate Respiratory Rate [ Generalized] Blood Pressure 142/81 163/84 143/79 O2 Sat by Pulse 97 97 97 Oximetry 09/10/16 09/10/16 09/10/16 03:00 03:30 03:58 Temperature 97.7 F Pulse Rate 85 76 98 H Pulse Rate [ 97 H None] Respiratory 18 18 21 Rate Respiratory 19 Rate [ Generalized] Blood Pressure 152/80 142/76 147/76 O2 Sat by Pulse 97 97 98 Oximetry 09/10/16 09/10/16 09/10/16 04:00 04:23 04:31 Temperature Pulse Rate 74 111 H 83 Pulse Rate [ None] Respiratory 18 17 Rate Respiratory Rate [ Generalized] Blood Pressure 146/76 180/96 185/85 O2 Sat by Pulse 97 98 Oximetry 09/10/16 09/10/16 09/10/16 05:00 05:30 06:00 Temperature Pulse Rate 84 79 79 Pulse Rate [ None] Respiratory 18 18 16 Rate Respiratory Rate [ Generalized] Blood Pressure 130/71 158/80 165/79 O2 Sat by Pulse 94 96 94 Oximetry 09/10/16 09/10/16 09/10/16 06:30 07:00 07:15 Temperature Pulse Rate 80 85 Pulse Rate [ None] Respiratory 19 18 21 Rate Respiratory Rate [ Generalized] Blood Pressure 151/77 155/86 O2 Sat by Pulse 94 95 Oximetry 09/10/16 09/10/16 09/10/16 07:30 07:42 08:00 Temperature 97.5 F L Pulse Rate 82 97 H 85 Pulse Rate [ None] Respiratory 18 18 Rate Respiratory Rate [ Generalized] Blood Pressure 157/79 157/79 168/85 O2 Sat by Pulse 95 99 96 Oximetry 09/10/16 09:24 Temperature Pulse Rate 87 Pulse Rate [ None] Respiratory Rate Respiratory Rate [ Generalized] Blood Pressure 166/83 O2 Sat by Pulse Oximetry Constitutional: no acute distress, agitated, appears uncomfortable, other ( sedated) Eyes: non-icteric ENT: oropharynx moist Neck: supple, no lymphadenopathy Effort: normal, very labored Ascultation: Bilateral: clear, diminished breath sounds, rhonchi Cardiovascular: regular rate and rhythm Gastrointestinal: normoactive bowel sounds, soft, non-distended Integumentary: normal Extremities: no cyanosis, no edema, pulses normal, no ischemia or petechiae Neurologic: non-focal exam (grossly), pupils equal and round, motor strength normal and Psychiatric: other (unable to assess) CBC and BMP: 09/11/16 05:10 09/11/16 05:10 ABG, PT/INR, D-dimer: ABG POC ABG pH 7.371 (7.35-7.45) 09/10/16 05:09 POC ABG pCO2 37.8 (35-45) 09/10/16 05:09 POC ABG pO2 74 (80-105) L 09/10/16 05:09 POC ABG HCO3 21.9 09/10/16 05:09 POC ABG Total CO2 23 09/10/16 05:09 POC ABG O2 Sat 94 09/10/16 05:09 PT/INR, D-dimer PT 12.9 Sec. (12.2-14.9) 09/03/16 00:10 INR 0.98 (0.87-1.13) 09/03/16 00:10 Abnormal lab findings: Abnormal Labs 09/03/16 09/03/16 09/03/16 12:12 15:07 16:20 WBC RBC Hgb Hct MCV MCH RDW Plt Count Lymph % (Auto) [place] # Seg Neutrophils % Seg Neuts % (Manual) Lymphocytes % (Manual) Seg Neutrophils # Seg Neutrophils # Man Lymphocytes # (Manual) Monocytes # (Manual) Fibrinogen POC ABG pH 7.452 H POC ABG pCO2 POC ABG pO2 Sodium Potassium Chloride Carbon Dioxide BUN Creatinine Glucose POC Glucose 178 H Calcium Phosphorus 2.20 L Magnesium 1.60 L C-Reactive Protein Total Protein Albumin Triglycerides HDL Cholesterol Urine WBC (Auto) Urine Creatinine Rheumatoid Factor Complement C4 09/03/16 09/03/16 09/03/16 17:57 17:58 23:50 WBC RBC Hgb Hct MCV MCH RDW Plt Count Lymph % (Auto) [place] # Seg Neutrophils % Seg Neuts % (Manual) Lymphocytes % (Manual) Seg Neutrophils # Seg Neutrophils # Man Lymphocytes # (Manual) Monocytes # (Manual) Fibrinogen POC ABG pH POC ABG pCO2 POC ABG pO2 Sodium Potassium Chloride Carbon Dioxide BUN Creatinine Glucose POC Glucose 162 H 145 H Calcium Phosphorus 2.30 L Magnesium C-Reactive Protein Total Protein Albumin Triglycerides HDL Cholesterol Urine WBC (Auto) Urine Creatinine Rheumatoid Factor Complement C4 09/04/16 09/04/16 09/04/16 03:31 03:31 05:42 WBC RBC Hgb 9.7 L D Hct MCV 72 L MCH 23 L RDW 17.5 H Plt Count Lymph % (Auto) 11.1 L [place] # Seg Neutrophils % 84.3 H Seg Neuts % (Manual) Lymphocytes % (Manual) Seg Neutrophils # 8.9 H Seg Neutrophils # Man Lymphocytes # (Manual) Monocytes # (Manual) Fibrinogen POC ABG pH POC ABG pCO2 POC ABG pO2 Sodium 135 L Potassium 2.9 L* Chloride 97.2 L Carbon Dioxide 19 L BUN Creatinine 1.7 H Glucose 170 H POC Glucose 152 H Calcium Phosphorus Magnesium C-Reactive Protein Total Protein Albumin Triglycerides 160 H HDL Cholesterol 31 L Urine WBC (Auto) Urine Creatinine Rheumatoid Factor Complement C4 09/04/16 09/04/16 09/04/16 11:34 17:46 23:29 WBC RBC Hgb Hct MCV MCH RDW Plt Count Lymph % (Auto) [place] # Seg Neutrophils % Seg Neuts % (Manual) Lymphocytes % (Manual) Seg Neutrophils # Seg Neutrophils # Man Lymphocytes # (Manual) Monocytes # (Manual) Fibrinogen POC ABG pH POC ABG pCO2 POC ABG pO2 Sodium Potassium Chloride Carbon Dioxide BUN Creatinine Glucose POC Glucose 165 H 210 H 139 H Calcium Phosphorus Magnesium C-Reactive Protein Total Protein Albumin Triglycerides HDL Cholesterol Urine WBC (Auto) Urine Creatinine Rheumatoid Factor Complement C4 09/05/16 09/05/16 09/05/16 04:05 04:05 05:38 WBC RBC Hgb Hct MCV 76 L D MCH 23 L RDW 17.8 H Plt Count Lymph % (Auto) [place] # Seg Neutrophils % Seg Neuts % (Manual) Lymphocytes % (Manual) Seg Neutrophils # Seg Neutrophils # Man Lymphocytes # (Manual) Monocytes # (Manual) Fibrinogen POC ABG pH POC ABG pCO2 POC ABG pO2 Sodium 134 L Potassium Chloride Carbon Dioxide 18 L BUN Creatinine 1.8 H Glucose 192 H POC Glucose 175 H Calcium Phosphorus Magnesium C-Reactive Protein Total Protein Albumin Triglycerides HDL Cholesterol Urine WBC (Auto) Urine Creatinine Rheumatoid Factor Complement C4 09/05/16 09/05/16 09/05/16 11:38 17:48 23:22 WBC RBC Hgb Hct MCV MCH RDW Plt Count Lymph % (Auto) [place] # Seg Neutrophils % Seg Neuts % (Manual) Lymphocytes % (Manual) Seg Neutrophils # Seg Neutrophils # Man Lymphocytes # (Manual) Monocytes # (Manual) Fibrinogen POC ABG pH POC ABG pCO2 POC ABG pO2 Sodium Potassium Chloride Carbon Dioxide BUN Creatinine Glucose POC Glucose 164 H 186 H 195 H Calcium Phosphorus Magnesium C-Reactive Protein Total Protein Albumin Triglycerides HDL Cholesterol Urine WBC (Auto) Urine Creatinine Rheumatoid Factor Complement C4 09/06/16 09/06/16 09/06/16 04:12 05:59 07:32 WBC RBC Hgb Hct MCV MCH RDW Plt Count Lymph % (Auto) [place] # Seg Neutrophils % Seg Neuts % (Manual) Lymphocytes % (Manual) Seg Neutrophils # Seg Neutrophils # Man Lymphocytes # (Manual) Monocytes # (Manual) Fibrinogen POC ABG pH 7.514 H POC ABG pCO2 29.1 L POC ABG pO2 72 L Sodium 133 L Potassium 3.4 L Chloride 94.9 L Carbon Dioxide 19 L BUN 30 H Creatinine 2.1 H Glucose 139 H POC Glucose 146 H Calcium Phosphorus Magnesium C-Reactive Protein Total Protein Albumin Triglycerides HDL Cholesterol Urine WBC (Auto) Urine Creatinine Rheumatoid Factor Complement C4 09/06/16 09/06/16 09/06/16 11:57 17:58 19:02 WBC RBC Hgb Hct MCV MCH RDW Plt Count Lymph % (Auto) [place] # Seg Neutrophils % Seg Neuts % (Manual) Lymphocytes % (Manual) Seg Neutrophils # Seg Neutrophils # Man Lymphocytes # (Manual) Monocytes # (Manual) Fibrinogen POC ABG pH 7.465 H POC ABG pCO2 32.0 L POC ABG pO2 Sodium Potassium Chloride Carbon Dioxide BUN Creatinine Glucose POC Glucose 165 H 160 H Calcium Phosphorus Magnesium C-Reactive Protein Total Protein Albumin Triglycerides HDL Cholesterol Urine WBC (Auto) Urine Creatinine Rheumatoid Factor Complement C4 09/06/16 09/07/16 09/07/16 23:45 02:47 02:47 WBC RBC Hgb Hct MCV MCH RDW Plt Count Lymph % (Auto) [place] # Seg Neutrophils % Seg Neuts % (Manual) Lymphocytes % (Manual) Seg Neutrophils # Seg Neutrophils # Man Lymphocytes # (Manual) Monocytes # (Manual) Fibrinogen POC ABG pH POC ABG pCO2 POC ABG pO2 Sodium Potassium Chloride Carbon Dioxide BUN Creatinine Glucose POC Glucose 204 H Calcium Phosphorus Magnesium C-Reactive Protein Total Protein Albumin Triglycerides HDL Cholesterol Urine WBC (Auto) 68.0 H Urine Creatinine 106.1 H Rheumatoid Factor Complement C4 09/07/16 09/07/16 09/07/16 04:50 06:19 06:39 WBC RBC Hgb Hct MCV MCH RDW Plt Count Lymph % (Auto) [place] # Seg Neutrophils % Seg Neuts % (Manual) Lymphocytes % (Manual) Seg Neutrophils # Seg Neutrophils # Man Lymphocytes # (Manual) Monocytes # (Manual) Fibrinogen POC ABG pH 7.457 H POC ABG pCO2 32.1 L POC ABG pO2 76 L Sodium 132 L Potassium Chloride 94.7 L Carbon Dioxide BUN 53 H Creatinine 2.9 H Glucose 151 H POC Glucose 149 H Calcium Phosphorus Magnesium C-Reactive Protein Total Protein Albumin Triglycerides HDL Cholesterol Urine WBC (Auto) Urine Creatinine Rheumatoid Factor Complement C4 09/07/16 09/07/16 09/07/16 09:20 11:43 11:43 WBC 19.4 H RBC Hgb 8.3 L Hct 26.4 L D MCV 72 L D MCH 22 L RDW 17.9 H Plt Count Lymph % (Auto) 8.5 L [place] # 1.0 H Seg Neutrophils % 85.8 H Seg Neuts % (Manual) Lymphocytes % (Manual) Seg Neutrophils # 16.6 H Seg Neutrophils # Man Lymphocytes # (Manual) Monocytes # (Manual) Fibrinogen POC ABG pH POC ABG pCO2 POC ABG pO2 Sodium 134 L Potassium Chloride 97.2 L Carbon Dioxide 20 L BUN 58 H Creatinine 2.9 H Glucose 147 H POC Glucose Calcium Phosphorus 2.40 L Magnesium 2.40 H C-Reactive Protein Total Protein 5.8 L Albumin 2.2 L Triglycerides HDL Cholesterol Urine WBC (Auto) Urine Creatinine Rheumatoid Factor Complement C4 58 H 09/07/16 09/07/16 09/07/16 11:50 16:00 17:31 WBC RBC Hgb Hct MCV MCH RDW Plt Count Lymph % (Auto) [place] # Seg Neutrophils % Seg Neuts % (Manual) Lymphocytes % (Manual) Seg Neutrophils # Seg Neutrophils # Man Lymphocytes # (Manual) Monocytes # (Manual) Fibrinogen POC ABG pH POC ABG pCO2 POC ABG pO2 158 H Sodium Potassium Chloride Carbon Dioxide BUN Creatinine Glucose POC Glucose 175 H Calcium Phosphorus Magnesium C-Reactive Protein Total Protein Albumin Triglycerides HDL Cholesterol Urine WBC (Auto) Urine Creatinine 66.3 H Rheumatoid Factor Complement C4 09/07/16 09/08/16 09/08/16 23:50 05:46 06:18 WBC 17.8 H RBC 3.58 L Hgb 8.1 L Hct 25.5 L MCV 71 L MCH 23 L RDW 18.4 H Plt Count Lymph % (Auto) [place] # Seg Neutrophils % Seg Neuts % (Manual) 92.0 H Lymphocytes % (Manual) 6.0 L Seg Neutrophils # Seg Neutrophils # Man 16.4 H Lymphocytes # (Manual) 1.1 L Monocytes # (Manual) Fibrinogen POC ABG pH POC ABG pCO2 34.3 L POC ABG pO2 71 L Sodium Potassium Chloride Carbon Dioxide BUN Creatinine Glucose POC Glucose 216 H Calcium Phosphorus Magnesium C-Reactive Protein Total Protein Albumin Triglycerides HDL Cholesterol Urine WBC (Auto) Urine Creatinine Rheumatoid Factor Complement C4 09/08/16 09/08/16 09/08/16 06:18 06:51 10:55 WBC RBC Hgb Hct MCV MCH RDW Plt Count Lymph % (Auto) [place] # Seg Neutrophils % Seg Neuts % (Manual) Lymphocytes % (Manual) Seg Neutrophils # Seg Neutrophils # Man Lymphocytes # (Manual) Monocytes # (Manual) Fibrinogen POC ABG pH POC ABG pCO2 POC ABG pO2 Sodium 133 L Potassium Chloride 96.9 L Carbon Dioxide 20 L BUN 63 H Creatinine 2.7 H Glucose 195 H POC Glucose 204 H 169 H Calcium Phosphorus Magnesium C-Reactive Protein Total Protein Albumin Triglycerides HDL Cholesterol Urine WBC (Auto) Urine Creatinine Rheumatoid Factor Complement C4 09/08/16 09/08/16 09/08/16 11:48 11:48 11:48 WBC RBC Hgb Hct MCV MCH RDW Plt Count Lymph % (Auto) [place] # Seg Neutrophils % Seg Neuts % (Manual) Lymphocytes % (Manual) Seg Neutrophils # Seg Neutrophils # Man Lymphocytes # (Manual) Monocytes # (Manual) Fibrinogen 750 H POC ABG pH POC ABG pCO2 POC ABG pO2 Sodium Potassium Chloride Carbon Dioxide BUN Creatinine Glucose POC Glucose Calcium Phosphorus Magnesium C-Reactive Protein 15.70 H Total Protein Albumin Triglycerides HDL Cholesterol Urine WBC (Auto) Urine Creatinine Rheumatoid Factor 24 H Complement C4 09/08/16 09/09/16 09/09/16 18:25 00:24 03:00 WBC 27.9 H RBC Hgb 8.7 L Hct 28.1 L MCV 72 L MCH 22 L RDW 18.4 H Plt Count 485 H Lymph % (Auto) [place] # Seg Neutrophils % Seg Neuts % (Manual) 77.0 H Lymphocytes % (Manual) 9.0 L Seg Neutrophils # Seg Neutrophils # Man 21.5 H Lymphocytes # (Manual) Monocytes # (Manual) 2.0 H Fibrinogen POC ABG pH POC ABG pCO2 POC ABG pO2 Sodium Potassium Chloride Carbon Dioxide BUN Creatinine Glucose POC Glucose 184 H 216 H Calcium Phosphorus Magnesium C-Reactive Protein Total Protein Albumin Triglycerides HDL Cholesterol Urine WBC (Auto) Urine Creatinine Rheumatoid Factor Complement C4 09/09/16 09/09/16 09/09/16 03:00 04:04 05:41 WBC RBC Hgb Hct MCV MCH RDW Plt Count Lymph % (Auto) [place] # Seg Neutrophils % Seg Neuts % (Manual) Lymphocytes % (Manual) Seg Neutrophils # Seg Neutrophils # Man Lymphocytes # (Manual) Monocytes # (Manual) Fibrinogen POC ABG pH POC ABG pCO2 POC ABG pO2 121 H Sodium 135 L Potassium Chloride 96.3 L Carbon Dioxide 21 L BUN 83 H Creatinine 3.0 H Glucose 135 H POC Glucose 155 H Calcium Phosphorus Magnesium C-Reactive Protein Total Protein Albumin Triglycerides HDL Cholesterol Urine WBC (Auto) Urine Creatinine Rheumatoid Factor Complement C4 09/09/16 09/09/16 09/09/16 11:55 14:13 17:33 WBC RBC Hgb Hct MCV MCH RDW Plt Count Lymph % (Auto) [place] # Seg Neutrophils % Seg Neuts % (Manual) Lymphocytes % (Manual) Seg Neutrophils # Seg Neutrophils # Man Lymphocytes # (Manual) Monocytes # (Manual) Fibrinogen POC ABG pH POC ABG pCO2 POC ABG pO2 Sodium Potassium Chloride Carbon Dioxide BUN Creatinine Glucose POC Glucose 186 H 211 H Calcium Phosphorus Magnesium C-Reactive Protein Total Protein Albumin Triglycerides HDL Cholesterol Urine WBC (Auto) 25.0 H Urine Creatinine Rheumatoid Factor Complement C4 09/09/16 09/10/16 09/10/16 23:13 05:09 05:17 WBC 15.8 H RBC 3.25 L Hgb 7.3 L Hct 22.9 L MCV 71 L MCH 23 L RDW 18.4 H Plt Count Lymph % (Auto) [place] # Seg Neutrophils % Seg Neuts % (Manual) 91.0 H Lymphocytes % (Manual) 4.0 L Seg Neutrophils # Seg Neutrophils # Man 14.4 H Lymphocytes # (Manual) 0.6 L Monocytes # (Manual) Fibrinogen POC ABG pH POC ABG pCO2 POC ABG pO2 74 L Sodium Potassium Chloride Carbon Dioxide BUN Creatinine Glucose POC Glucose 215 H Calcium Phosphorus Magnesium C-Reactive Protein Total Protein Albumin Triglycerides HDL Cholesterol Urine WBC (Auto) Urine Creatinine Rheumatoid Factor Complement C4 09/10/16 05:17 WBC RBC Hgb Hct MCV MCH RDW Plt Count Lymph % (Auto) [place] # Seg Neutrophils % Seg Neuts % (Manual) Lymphocytes % (Manual) Seg Neutrophils # Seg Neutrophils # Man Lymphocytes # (Manual) Monocytes # (Manual) Fibrinogen POC ABG pH POC ABG pCO2 POC ABG pO2 Sodium Potassium Chloride Carbon Dioxide 21 L BUN 93 H Creatinine 2.9 H Glucose 146 H POC Glucose Calcium 8.1 L Phosphorus Magnesium C-Reactive Protein Total Protein Albumin Triglycerides HDL Cholesterol Urine WBC (Auto) Urine Creatinine Rheumatoid Factor Complement C4 Allied health notes reviewed: RT
--- NOTE | 2016-09-10 11:02 | Progress Note ---
Assessment and Plan Assessment and plan: 46-year-old woman with a history of hypertension, diabetes, asthma, hyperlipidemia, chronic kidney disease and anxiety who was admitted for acute CVA and accelerated hypertension, she had a hx of poor adherence with her medications, and uncontrolled htn. Patient's blood pressure systolically on admission was noted be greater than 260. TPA was started but this was discontinued after 5 minutes because her blood pressure became uncontrolled. The TPA was not initiated again because the patient was outside the TPA window. Acute CVA with infarct. sp TPA Continue neuro checks. Neurology input appreciated, CT shows continued evolution of left MCA infarct with slight mass effect and edema, and there is no hemorrhage - PRINCE showed hyperdynamic with ef of 75%, neither clot nor septal defect seen - MRA Brain shows near complete occlusion of M2 and M3 of the left MCA - carotid doppler negative - Echo shows preserved systolic function but does show some left ventricular diastolic dysfunction - continue asa and statin for secondary ppx Acute hypoxic respiratory failure requiring MV >96hrs Lungs are clear on exam today, CXR negative, continue oxygen supplementation Likely due to pneumonia and COPD exacerbation and evolution of her CVA intubated, continue MV de-escalate abx Nosocomial acquired aspiration pneumonia/sepsis de-escalate antibiotics, fup tracheal aspirate culture Continue sepsis protocol Asthma/COPD exacerbation Patient is on antibiotics, steroids and nebs, continue MV, intubated UTI Continue antibiotics as above, fup urine cx Acute Toxic Metabolic encephalopathy. Likely multifactorial, mostly secondary to evolution of CVA for restlessness, we checked troponin, EKG, CXR which were all negative Hypertensive Emergency optimize meds via NGTube restart cardene drip BP is very labile, monitor closely Hypokalemia. Replete potassium as needed. hypophophatemia repleted via NGT, and normalized Diabetes type 2. Continue sliding-scale regular insulin and Accu-Cheks. Hyperlipidemia. Continue statin Nutrition continue tube feeds JUANITA upon Chronic kidney disease, stage 3. The patient's creatinine May 2016 was 1.8. Currently 3. nephrology input appreciated juanita due to infectious vs hypoperfusion with acc HTN renal us and urine lytes daily lytes avoid nephrotoxins Case discussed with the patient's family and pulmonology her POA is her Brother, Jam [phone] The high probability of a clinically significant, sudden or life threatening deterioration of the [cardiovascular and neurological] system(s) required my full and direct attention, intervention and personal management. The aggregate critical care time was [33] minutes. This time is in addition to time spent performing reported procedures but includes the following: [] Data Review and interpretation [] Patient assessment and monitoring of vital signs [] Documentation [] Medication orders and management History Interval history: sedation was held today for a few hours and she was able to open her eyes and obey simple commands, shortly after she became agitated and was put back on sedation BP was elevated today Hospitalist Physical - Physical exam Narrative exam: General: sedated HEENT: MMM, EOMI cardiac: S1-S2 heard lungs: ventilated breath sounds abdomen: soft, nontender, nondistended bowel sounds positive extremities: no edema clubbing or cyanosis Skin: no rash or lesion Neuro: Nonresponsive, nonverbal, withdraws to touch and painful stimuli on the left side, right side of her body is weaker. Babinski reflexes downgoing in both feet, right foot has diminished reflex - Constitutional Vitals: Temp Pulse Resp BP Pulse Ox 97.5 F L 87 18 158/74 92 09/10/16 08:00 09/10/16 10:20 09/10/16 10:00 09/10/16 10:00 09/10/16 10:00 General appearance: Present: other (does not open eyes to name or stimulation; does not follow commands) Results - Labs CBC & Chem 7: 09/10/16 05:17 09/10/16 05:17 Labs: Laboratory Last Values WBC 15.8 K/mm3 (4.5-11.0) H 09/10/16 05:17 RBC 3.25 M/mm3 (3.65-5.03) L 09/10/16 05:17 Hgb 7.3 gm/dl (10.1-14.3) L 09/10/16 05:17 Hct 22.9 % (30.3-42.9) L 09/10/16 05:17 MCV 71 fl (79-97) L 09/10/16 05:17 MCH 23 pg (28-32) L 09/10/16 05:17 MCHC 32 % (30-34) 09/10/16 05:17 RDW 18.4 % (13.2-15.2) H 09/10/16 05:17 Plt Count 381 K/mm3 (140-440) 09/10/16 05:17 Lymph % (Auto) 8.5 % (13.4-35.0) L 09/07/16 11:43 [place] % (Auto) 5.4 % (0.0-7.3) 09/07/16 11:43 Eos % (Auto) 0.2 % (0.0-4.3) 09/07/16 11:43 Baso % (Auto) 0.1 % (0.0-1.8) 09/07/16 11:43 Lymph # 1.6 K/mm3 (1.2-5.4) 09/07/16 11:43 [place] # 1.0 K/mm3 (0.0-0.8) H 09/07/16 11:43 Eos # 0.0 K/mm3 (0.0-0.4) 09/07/16 11:43 Baso # 0.0 K/mm3 (0.0-0.1) 09/07/16 11:43 Add Manual Diff Complete 09/10/16 05:17 Total Counted 100 09/10/16 05:17 Seg Neutrophils % Room Maid 09/08/16 06:18 Seg Neuts % (Manual) 91.0 % (40.0-70.0) H 09/10/16 05:17 Band Neutrophils % 0 % 09/10/16 05:17 Lymphocytes % (Manual) 4.0 % (13.4-35.0) L 09/10/16 05:17 Reactive Lymphs % (Man) 0 % 09/10/16 05:17 Monocytes % (Manual) 2.0 % (0.0-7.3) 09/10/16 05:17 Eosinophils % (Manual) 0 % (0.0-4.3) 09/10/16 05:17 Basophils % (Manual) 0 % (0.0-1.8) 09/10/16 05:17 Metamyelocytes % 1.0 % 09/10/16 05:17 Myelocytes % 2.0 % 09/10/16 05:17 Promyelocytes % 0 % 09/10/16 05:17 Blast Cells % 0 % 09/10/16 05:17 Nucleated RBC % Not Reportable 09/10/16 05:17 Seg Neutrophils # 16.6 K/mm3 (1.8-7.7) H 09/07/16 11:43 Seg Neutrophils # Man 14.4 K/mm3 (1.8-7.7) H 09/10/16 05:17 Band Neutrophils # 0.0 K/mm3 09/10/16 05:17 Lymphocytes # (Manual) 0.6 K/mm3 (1.2-5.4) L 09/10/16 05:17 Abs React Lymphs (Man) 0.0 K/mm3 09/10/16 05:17 Monocytes # (Manual) 0.3 K/mm3 (0.0-0.8) 09/10/16 05:17 Eosinophils # (Manual) 0.0 K/mm3 (0.0-0.4) 09/10/16 05:17 Basophils # (Manual) 0.0 K/mm3 (0.0-0.1) 09/10/16 05:17 Metamyelocytes # 0.2 K/mm3 09/10/16 05:17 Myelocytes # 0.3 K/mm3 09/10/16 05:17 Promyelocytes # 0.0 K/mm3 09/10/16 05:17 Blast Cells # 0.0 K/mm3 09/10/16 05:17 WBC Morphology Not Reportable 09/10/16 05:17 Hypersegmented Neuts Not Reportable 09/10/16 05:17 Hyposegmented Neuts Not Reportable 09/10/16 05:17 Hypogranular Neuts Not Reportable 09/10/16 05:17 Smudge Cells Not Reportable 09/10/16 05:17 Toxic Granulation Not Reportable 09/10/16 05:17 Toxic Vacuolation Not Reportable 09/10/16 05:17 Dohle Bodies Not Reportable 09/10/16 05:17 Pelger-Huet Anomaly Not Reportable 09/10/16 05:17 Jasmina Rods Not Reportable 09/10/16 05:17 Platelet Estimate Appears normal 09/10/16 05:17 Clumped Platelets Rare 09/10/16 05:17 Plt Clumps, EDTA Not Reportable 09/10/16 05:17 Large Platelets Not Reportable 09/10/16 05:17 Giant Platelets Not Reportable 09/10/16 05:17 Platelet Satelliting Not Reportable 09/10/16 05:17 Plt Morphology Comment Not Reportable 09/10/16 05:17 RBC Morphology Not Reportable 09/10/16 05:17 Dimorphic RBCs Not Reportable 09/10/16 05:17 Polychromasia Not Reportable 09/10/16 05:17 Hypochromasia 1+ 09/10/16 05:17 Poikilocytosis Not Reportable 09/10/16 05:17 Anisocytosis Not Reportable 09/10/16 05:17 Microcytosis Not Reportable 09/10/16 05:17 Macrocytosis Not Reportable 09/10/16 05:17 Spherocytes Not Reportable 09/10/16 05:17 Pappenheimer Bodies Not Reportable 09/10/16 05:17 Sickle Cells Not Reportable 09/10/16 05:17 Target Cells Not Reportable 09/10/16 05:17 Tear Drop Cells Not Reportable 09/10/16 05:17 Ovalocytes Not Reportable 09/10/16 05:17 Helmet Cells Not Reportable 09/10/16 05:17 Monet-Cullen Bodies Not Reportable 09/10/16 05:17 Buckeye Rings Not Reportable 09/10/16 05:17 Temple Cells Not Reportable 09/10/16 05:17 Bite Cells Not Reportable 09/10/16 05:17 Crenated Cell Not Reportable 09/10/16 05:17 Elliptocytes Not Reportable 09/10/16 05:17 Acanthocytes (Spur) Not Reportable 09/10/16 05:17 Rouleaux Not Reportable 09/10/16 05:17 Hemoglobin C Crystals Not Reportable 09/10/16 05:17 Schistocytes Not Reportable 09/10/16 05:17 Malaria parasites Not Reportable 09/10/16 05:17 ESR > 140.0 mm/Hr (0-20) 09/08/16 11:48 Jun Bodies Not Reportable 09/10/16 05:17 Hem Pathologist Commnt No 09/10/16 05:17 PT 12.9 Sec. (12.2-14.9) 09/03/16 00:10 INR 0.98 (0.87-1.13) 09/03/16 00:10 APTT 29.0 Sec. (24.2-36.6) 09/03/16 00:10 Thrombin Time 16.8 Sec. (15.1-19.6) 09/03/16 00:10 Fibrinogen 750 mg/dl (211-480) H 09/08/16 11:48 POC ABG pH 7.371 (7.35-7.45) 09/10/16 05:09 POC ABG pCO2 37.8 (35-45) 09/10/16 05:09 POC ABG pO2 74 (80-105) L 09/10/16 05:09 POC ABG HCO3 21.9 09/10/16 05:09 POC ABG Total CO2 23 09/10/16 05:09 POC ABG O2 Sat 94 09/10/16 05:09 POC ABG Base Excess -3 09/10/16 05:09 FiO2 30 % 09/10/16 05:09 Sodium 137 mmol/L (137-145) 09/10/16 05:17 Potassium 4.7 mmol/L (3.6-5.0) 09/10/16 05:17 Chloride 99.6 mmol/L (98-107) 09/10/16 05:17 Carbon Dioxide 21 mmol/L (22-30) L 09/10/16 05:17 Anion Gap 21 mmol/L 09/10/16 05:17 BUN 93 mg/dL (7-17) H 09/10/16 05:17 Creatinine 2.9 mg/dL (0.7-1.2) H 09/10/16 05:17 Estimated GFR 21 ml/min 09/10/16 05:17 BUN/Creatinine Ratio 32.06 % 09/10/16 05:17 Glucose 146 mg/dL (65-100) H 09/10/16 05:17 POC Glucose 215 (70-105) H 09/09/16 23:13 Lactic Acid 1.60 mmol/L (0.7-2.0) 09/08/16 15:40 Calcium 8.1 mg/dL (8.4-10.2) L 09/10/16 05:17 Phosphorus 4.30 mg/dL (2.5-4.5) D 09/08/16 06:18 Magnesium 2.40 mg/dL (1.7-2.3) H 09/07/16 11:43 Total Bilirubin 0.40 mg/dL (0.1-1.2) 09/07/16 11:43 AST 14 units/L (5-40) 09/07/16 11:43 ALT 11 units/L (7-56) 09/07/16 11:43 Alkaline Phosphatase 107 units/L (35-129) 09/07/16 11:43 Ammonia 27.0 umol/L (25-60) 09/07/16 08:37 Total Creatine Kinase 67 units/L (30-135) 09/03/16 11:26 CK-MB (CK-2) 1.4 ng/mL (0.0-4.0) 09/03/16 11:26 CK-MB (CK-2) Rel Index 2.0 (0-4) 09/03/16 11:26 Troponin T < 0.010 ng/mL (0.00-0.029) 09/06/16 10:43 C-Reactive Protein 15.70 mg/dL (0.00-1.30) H 09/08/16 11:48 Total Protein 5.8 g/dL (6.3-8.2) L 09/07/16 11:43 Albumin 2.2 g/dL (3.9-5) L 09/07/16 11:43 Albumin/Globulin Ratio 0.6 % 09/07/16 11:43 Triglycerides 160 mg/dL (2-149) H 09/04/16 03:31 Cholesterol 189 mg/dL (50-199) 09/04/16 03:31 LDL Cholesterol Direct 126 mg/dL (50-130) 09/04/16 03:31 HDL Cholesterol 31 mg/dL (40-59) L 09/04/16 03:31 Cholesterol/HDL Ratio 6.09 % 09/04/16 03:31 TSH 1.010 mlU/mL (0.270-4.200) 09/07/16 08:37 HCG, Qual Negative (Negative) 09/03/16 00:10 Urine Color Yellow (Yellow) 09/09/16 14:13 Urine Turbidity Slightly-cloudy (Clear) 09/09/16 14:13 Urine pH 5.0 (5.0-7.0) 09/09/16 14:13 Ur Specific [place] 1.012 (1.003-1.030) 09/09/16 14:13 Urine Protein 30 mg/dl mg/dL (Negative) 09/09/16 14:13 Urine Glucose (UA) Neg mg/dL (Negative) 09/09/16 14:13 Urine Ketones Neg mg/dL (Negative) 09/09/16 14:13 Urine Blood Lg (Negative) 09/09/16 14:13 Urine Nitrite Neg (Negative) 09/09/16 14:13 Urine Bilirubin Neg (Negative) 09/09/16 14:13 Urine Urobilinogen < 2.0 mg/dL (<2.0) 09/09/16 14:13 Ur Leukocyte Esterase Sm (Negative) 09/09/16 14:13 Urine WBC (Auto) 25.0 /HPF (0.0-6.0) H 09/09/16 14:13 Urine RBC (Auto) > 182.0 /HPF (0.0-6.0) 09/09/16 14:13 Urine Bacteria (Auto) 1+ /HPF (Negative) 09/09/16 14:13 Urine WBC Clumps 2+ /HPF 09/07/16 02:47 Hyaline Casts 4 /LPF 09/07/16 02:47 Urine Mucus Few /HPF 09/09/16 14:13 Urine Eosinophils None seen (None Seen) 09/07/16 16:00 Urine Creatinine 66.3 mg/dL (0.1-20.0) H 09/07/16 16:00 Urine Sodium 22 mEq/L 09/07/16 16:00 Random Vancomycin 2.3 ug/mL (0-40.0) 09/09/16 03:00 Urine Opiates Screen Presumptive negative 09/03/16 15:11 Urine Methadone Screen Presumptive positive 09/03/16 15:11 Ur Barbiturates Screen Presumptive positive 09/03/16 15:11 Ur Phencyclidine Scrn Presumptive negative 09/03/16 15:11 Ur Amphetamines Screen Presumptive negative 09/03/16 15:11 U Benzodiazepines Scrn Presumptive negative 09/03/16 15:11 Urine Cocaine Screen Presumptive negative 09/03/16 15:11 U Marijuana (THC) Screen Presumptive positive 09/03/16 15:11 Drugs of Abuse Note Disclamer 09/03/16 15:11 Rheumatoid Factor 24 IU/ml (0-13) H 09/08/16 11:48 Proteinase 3 (PR3) Ab <1.0 AI (<1.0) 09/07/16 09:20 Myeloperoxidase Ab <1.0 AI (<1.0) 09/07/16 09:20 Complement C3 148 mg/dL (90-180) 09/07/16 09:20 Complement C4 58 mg/dL (16-47) H 09/07/16 09:20 RPR Nonreactive (Nonreactive) 09/08/16 11:48 Hep Bs Antigen Non-reactive (Negative) 09/07/16 09:20 Hepatitis C Antibody Non-reactive (NonReactive) 09/07/16 09:20 HIV 1&2 Antibody Rapid Non react (Non React) 09/08/16 11:48 HIV P24 Antigen Non react (Non React) 09/08/16 11:48 Blood Type A POSITIVE 09/03/16 00:10 Antibody Screen TNR 09/03/16 00:10 DELORIS Antibody Screen Negative 09/03/16 00:10
[2016-09-10] MEDS ORDERED: NACL 0.9% 500 ML 500 ML IV NR (11:08)
--- NOTE | 2016-09-10 11:30 | Progress Note ---
Subjective Principal diagnosis: Acute CVA; Acute Encephalopathy Interval history: Patient was seen today for follow-up of multiple renal related issues Blood pressures around 140 systolic Remains intubated/mentation altered Vitals labs intake output and medications were reviewed Social history: Reviewed Family history: Reviewed Allergy: Reviewed Physical examination Vitals: Reviewed HEENT: Oral mucosa moist Neck: Supple no JVD Chest: Bilateral clear to auscultation no crackles rales or wheezes Heart: Regular rate and rhythm S1 and S2 heard Abdomen: Soft nontender no voluntary guarding rigidity rebound Extremity: Minimal edema dry skin Dermatology; dry skin no edema Neurological; patient is not arousable Assessment and plan Renal failure: Worsening renal function over time and the patient does have underlying chronic kidney disease with bilateral atrophic kidneys Function appears to have stabilized continue with free water replacement Metabolic acidosis to monitor and follow Hyponatremia: Multifactorial Respiratory failure: Currently intubated Status post stroke: Currently being followed by neurology Accelerated hypertension: She may have secondary hypertension goal systolic blood pressure currently under 140-150 Neurology following for stroke, he has been well-informed about the patient's current renal issues and limited prognosis We'll continue to follow and make recommendation from renal standpoint Objective - Vital Signs Vital signs: Vital Signs - 12hr 09/09/16 09/10/16 09/10/16 23:30 00:00 00:16 Temperature 99.1 F Pulse Rate 83 95 H 98 H Pulse Rate [ From Monitor] Pulse Rate [ 105 H None] Respiratory 17 17 Rate Respiratory Rate [ Generalized] Blood Pressure 142/73 171/84 171/84 O2 Sat by Pulse 96 95 98 Oximetry 09/10/16 09/10/16 09/10/16 00:30 01:01 01:30 Temperature Pulse Rate 96 H 101 H 102 H Pulse Rate [ From Monitor] Pulse Rate [ None] Respiratory 20 19 16 Rate Respiratory Rate [ Generalized] Blood Pressure 151/85 151/85 142/81 O2 Sat by Pulse 96 99 97 Oximetry 09/10/16 09/10/16 09/10/16 02:00 02:30 03:00 Temperature Pulse Rate 97 H 85 85 Pulse Rate [ From Monitor] Pulse Rate [ None] Respiratory 14 17 18 Rate Respiratory Rate [ Generalized] Blood Pressure 163/84 143/79 152/80 O2 Sat by Pulse 97 97 97 Oximetry 09/10/16 09/10/16 09/10/16 03:30 03:58 04:00 Temperature 97.7 F Pulse Rate 76 98 H 74 Pulse Rate [ From Monitor] Pulse Rate [ 97 H None] Respiratory 18 21 18 Rate Respiratory 19 Rate [ Generalized] Blood Pressure 142/76 147/76 146/76 O2 Sat by Pulse 97 98 97 Oximetry 09/10/16 09/10/16 09/10/16 04:23 04:31 05:00 Temperature Pulse Rate 111 H 83 84 Pulse Rate [ From Monitor] Pulse Rate [ None] Respiratory 17 18 Rate Respiratory Rate [ Generalized] Blood Pressure 180/96 185/85 130/71 O2 Sat by Pulse 98 94 Oximetry 09/10/16 09/10/16 09/10/16 05:30 06:00 06:30 Temperature Pulse Rate 79 79 80 Pulse Rate [ From Monitor] Pulse Rate [ None] Respiratory 18 16 19 Rate Respiratory Rate [ Generalized] Blood Pressure 158/80 165/79 151/77 O2 Sat by Pulse 96 94 94 Oximetry 09/10/16 09/10/16 09/10/16 07:00 07:15 07:30 Temperature Pulse Rate 85 82 Pulse Rate [ From Monitor] Pulse Rate [ None] Respiratory 18 21 18 Rate Respiratory Rate [ Generalized] Blood Pressure 155/86 157/79 O2 Sat by Pulse 95 95 Oximetry 09/10/16 09/10/16 09/10/16 07:42 08:00 08:30 Temperature 97.5 F L Pulse Rate 97 H 85 88 Pulse Rate [ From Monitor] Pulse Rate [ None] Respiratory 18 15 Rate Respiratory Rate [ Generalized] Blood Pressure 157/79 168/85 179/96 O2 Sat by Pulse 99 96 97 Oximetry 09/10/16 09/10/16 09/10/16 08:45 09:00 09:24 Temperature Pulse Rate 86 87 Pulse Rate [ 88 From Monitor] Pulse Rate [ None] Respiratory 15 18 Rate Respiratory Rate [ Generalized] Blood Pressure 166/83 166/83 O2 Sat by Pulse 97 89 Oximetry 09/10/16 09/10/16 09/10/16 09:30 10:00 10:20 Temperature Pulse Rate 79 82 87 Pulse Rate [ From Monitor] Pulse Rate [ None] Respiratory 18 18 Rate Respiratory Rate [ Generalized] Blood Pressure 170/84 158/74 O2 Sat by Pulse 96 92 Oximetry 09/10/16 11:25 Temperature Pulse Rate 88 Pulse Rate [ From Monitor] Pulse Rate [ None] Respiratory Rate Respiratory Rate [ Generalized] Blood Pressure 160/80 O2 Sat by Pulse 99 Oximetry - Lab 09/10/16 05:17 09/10/16 05:17 Most recent lab results Calcium 8.1 mg/dL (8.4-10.2) L 09/10/16 05:17 Phosphorus 4.30 mg/dL (2.5-4.5) D 09/08/16 06:18 Magnesium 2.40 mg/dL (1.7-2.3) H 09/07/16 11:43 Urine Creatinine 66.3 mg/dL (0.1-20.0) H 09/07/16 16:00 Urine Sodium 22 mEq/L 09/07/16 16:00
[2016-09-10] MEDS ORDERED: CATAPRES PO SCH (12:00)
[2016-09-10] MEDS: LEVAQUIN 750MG/150ML 750 MG/150 ML BAG IV SCH (13:08)
[2016-09-10] MEDS: NORMODYNE IV PRN (17:32)
[2016-09-10] MEDS: CARDENE 50 MG in NACL 0.9% 250ML 230 ML IV SCH (20:00)
[2016-09-10] MEDS: HALDOL IV PRN (21:42)
[2016-09-11] MEDS: DIPRIVAN 10 MG/ML 1,000 MG/100 ML BOTTLE IV SCH ×4 (00:33→18:37)
[2016-09-11] MEDS: fentaNYL DRIP Premix 2,000 MCG/100 ML BAG IV SCH ×4 (00:34→22:54)
[2016-09-11] MEDS: HumuLIN R SUB-Q SCH ×4 (00:36→17:39)
[2016-09-11] MEDS: HEPARIN SUB-Q SCH ×3 (05:11→23:22)
[2016-09-11] MEDS: CATAPRES PO SCH ×2 (06:39→18:22)
[2016-09-11] MEDS: CARDENE 50 MG in NACL 0.9% 250ML 230 ML IV SCH ×3 (06:41→15:41)
[2016-09-11 06:46] LABS: Hematocrit 29.3 % (30.3-42.9); Hemoglobin 9.2 gm/dl (10.1-14.3); Mean Corpuscular HGB Conc 31 % (30-34); Mean Corpuscular Volume 73 fl (79-97); Platelet Count 452 K/mm3 (140-440); Red Blood Count 4.03 M/mm3 (3.65-5.03); Red Cell Distribution Width 18.9 % (13.2-15.2)
[2016-09-11 06:54] LABS: Mean Corpuscular Hemoglobin 23 pg (28-32)
[2016-09-11 07:00] LABS: BUN/Creatinine Ratio 41.15; Calcium 8.3 mg/dL (8.4-10.2)
[2016-09-11 08:26] LABS: Band Neutrophils # (Manual) 0.3 K/mm3; Basophils % (Manual) 0 % (0.0-1.8); Eosinophils % (Manual) 0 % (0.0-4.3); Monocytes % (Manual) 4.5 % (0.0-7.3); Myelocytes # (Manual) 0.4 K/mm3; Total Cells Counted 200
[2016-09-11 08:27] LABS: Anisocytosis 2+
--- NOTE | 2016-09-11 09:27 | XRay Report ---
Single view chest: Compared to 09/10/16. History: Followup of respiratory failure. Findings: Cardiomegaly. Trachea is midline. Stable support system. No consolidation. No pneumothorax. No pleural effusion. Impression: No acute cardiopulmonary findings.
[2016-09-11] MEDS: PEPCID FEEDTUBE SCH (09:35)
[2016-09-11] MEDS: ASPIRIN PO SCH (09:35)
[2016-09-11] MEDS: PLAVIX FEEDTUBE SCH (10:00)
--- NOTE | 2016-09-11 11:34 | Progress Note ---
Assessment and Plan Assessment and plan: 46-year-old woman with a history of hypertension, diabetes, asthma, hyperlipidemia, chronic kidney disease and anxiety who was admitted for acute CVA and accelerated hypertension, she had a hx of poor adherence with her medications, and uncontrolled htn. Patient's blood pressure systolically on admission was noted be greater than 260. TPA was started but this was discontinued after 5 minutes because her blood pressure became uncontrolled. The TPA was not initiated again because the patient was outside the TPA window. Acute CVA with infarct. sp TPA Continue neuro checks. Neurology input appreciated, CT shows continued evolution of left MCA infarct with slight mass effect and edema, and there is no hemorrhage - PRINCE showed hyperdynamic with ef of 75%, neither clot nor septal defect seen - MRA Brain shows near complete occlusion of M2 and M3 of the left MCA - Repeat CT scan done on 09/11, shows stable findings - carotid doppler negative - Echo shows preserved systolic function but does show some left ventricular diastolic dysfunction - continue asa and statin for secondary ppx Acute hypoxic respiratory failure requiring MV >96hrs Lungs are clear on exam today, CXR negative, continue oxygen supplementation Likely due to pneumonia and COPD exacerbation and evolution of her CVA intubated, continue MV weaning trial per pulmonology Nosocomial acquired aspiration pneumonia/sepsis continue antibiotics, fup tracheal aspirate culture Continue sepsis protocol continue antibiotics till 09/14 to complete 7 day course Asthma/COPD exacerbation Patient is on antibiotics, steroids and nebs, continue MV, intubated UTI Continue antibiotics as above, urine culture was taken of the patient and restarted antibiotics, therefore nondiagnostic The antibiotics being used to treat pneumonia will also cover UTI. Acute Toxic Metabolic encephalopathy. Likely multifactorial, mostly secondary to evolution of CVA for restlessness, we checked troponin, EKG, CXR which were all negative Hypertensive Emergency optimize meds via NGTube attempt to wean cardene drip BP is very labile, monitor closely Hypokalemia. Replete potassium as needed. hypophophatemia repleted via NGT, and normalized Diabetes type 2. Continue sliding-scale regular insulin and Accu-Cheks. Hyperlipidemia. Continue statin Nutrition continue tube feeds JUANITA upon Chronic kidney disease, stage 3. The patient's creatinine May 2016 was 1.8. nephrology input appreciated Creat improved from max of 3 to 2.6 today juanita due to infectious vs hypoperfusion with acc HTN renal us and urine lytes daily lytes avoid nephrotoxins Anemia likely due to sepsis/acute illness received one unit PRBC yesterday Diarrhea send stool for cdiff Case discussed with the patient's family and pulmonology her POA is her Brother, Jam [phone] The high probability of a clinically significant, sudden or life threatening deterioration of the [cardiovascular and neurological] system(s) required my full and direct attention, intervention and personal management. The aggregate critical care time was [33] minutes. This time is in addition to time spent performing reported procedures but includes the following: [] Data Review and interpretation [] Patient assessment and monitoring of vital signs [] Documentation [] Medication orders and management History Interval history: sedation was held today for a few hours and she was able to open her eyes and obey simple commands, shortly after she became agitated and was put back on sedation BP is improved today, on cardene drip Hospitalist Physical - Physical exam Narrative exam: General: sedated HEENT: MMM, EOMI cardiac: S1-S2 heard lungs: ventilated breath sounds abdomen: soft, nontender, nondistended bowel sounds positive extremities: no edema clubbing or cyanosis Skin: no rash or lesion Neuro: Nonresponsive, nonverbal, withdraws to touch and painful stimuli on the left side, right side of her body is weaker. Babinski reflexes downgoing in both feet, right foot has diminished reflex - Constitutional Vitals: Temp Pulse Resp BP Pulse Ox 98.8 F 79 25 H 123/70 98 09/11/16 08:00 09/11/16 11:03 09/11/16 09:31 09/11/16 11:03 09/11/16 11:03 General appearance: Present: other (does not open eyes to name or stimulation; does not follow commands) Results - Labs CBC & Chem 7: 09/11/16 05:10 09/11/16 05:10 Labs: Laboratory Last Values WBC 28.4 K/mm3 (4.5-11.0) H 09/11/16 05:10 RBC 4.03 M/mm3 (3.65-5.03) 09/11/16 05:10 Hgb 9.2 gm/dl (10.1-14.3) L 09/11/16 05:10 Hct 29.3 % (30.3-42.9) L D 09/11/16 05:10 MCV 73 fl (79-97) L 09/11/16 05:10 MCH 23 pg (28-32) L 09/11/16 05:10 MCHC 31 % (30-34) 09/11/16 05:10 RDW 18.9 % (13.2-15.2) H 09/11/16 05:10 Plt Count 452 K/mm3 (140-440) H 09/11/16 05:10 Lymph % (Auto) 8.5 % (13.4-35.0) L 09/07/16 11:43 Mora % (Auto) 5.4 % (0.0-7.3) 09/07/16 11:43 Eos % (Auto) 0.2 % (0.0-4.3) 09/07/16 11:43 Baso % (Auto) 0.1 % (0.0-1.8) 09/07/16 11:43 Lymph # 1.6 K/mm3 (1.2-5.4) 09/07/16 11:43 Mora # 1.0 K/mm3 (0.0-0.8) H 09/07/16 11:43 Eos # 0.0 K/mm3 (0.0-0.4) 09/07/16 11:43 Baso # 0.0 K/mm3 (0.0-0.1) 09/07/16 11:43 Add Manual Diff Complete 09/11/16 05:10 Total Counted 200 09/11/16 05:10 Seg Neutrophils % Chaplain 09/08/16 06:18 Seg Neuts % (Manual) 89.5 % (40.0-70.0) H 09/11/16 05:10 Band Neutrophils % 1.0 % 09/11/16 05:10 Lymphocytes % (Manual) 2.0 % (13.4-35.0) L 09/11/16 05:10 Reactive Lymphs % (Man) 0 % 09/11/16 05:10 Monocytes % (Manual) 4.5 % (0.0-7.3) 09/11/16 05:10 Eosinophils % (Manual) 0 % (0.0-4.3) 09/11/16 05:10 Basophils % (Manual) 0 % (0.0-1.8) 09/11/16 05:10 Metamyelocytes % 1.5 % 09/11/16 05:10 Myelocytes % 1.5 % 09/11/16 05:10 Promyelocytes % 0 % 09/11/16 05:10 Blast Cells % 0 % 09/11/16 05:10 Nucleated RBC % Not Reportable 09/11/16 05:10 Seg Neutrophils # 16.6 K/mm3 (1.8-7.7) H 09/07/16 11:43 Seg Neutrophils # Man 25.4 K/mm3 (1.8-7.7) H 09/11/16 05:10 Band Neutrophils # 0.3 K/mm3 09/11/16 05:10 Lymphocytes # (Manual) 0.6 K/mm3 (1.2-5.4) L 09/11/16 05:10 Abs React Lymphs (Man) 0.0 K/mm3 09/11/16 05:10 Monocytes # (Manual) 1.3 K/mm3 (0.0-0.8) H 09/11/16 05:10 Eosinophils # (Manual) 0.0 K/mm3 (0.0-0.4) 09/11/16 05:10 Basophils # (Manual) 0.0 K/mm3 (0.0-0.1) 09/11/16 05:10 Metamyelocytes # 0.4 K/mm3 09/11/16 05:10 Myelocytes # 0.4 K/mm3 09/11/16 05:10 Promyelocytes # 0.0 K/mm3 09/11/16 05:10 Blast Cells # 0.0 K/mm3 09/11/16 05:10 WBC Morphology Not Reportable 09/11/16 05:10 Hypersegmented Neuts Not Reportable 09/11/16 05:10 Hyposegmented Neuts Not Reportable 09/11/16 05:10 Hypogranular Neuts Not Reportable 09/11/16 05:10 Smudge Cells Not Reportable 09/11/16 05:10 Toxic Granulation Not Reportable 09/11/16 05:10 Toxic Vacuolation Not Reportable 09/11/16 05:10 Dohle Bodies Not Reportable 09/11/16 05:10 Pelger-Huet Anomaly Not Reportable 09/11/16 05:10 Jasmina Rods Not Reportable 09/11/16 05:10 Platelet Estimate Appears normal 09/11/16 05:10 Clumped Platelets Not Reportable 09/11/16 05:10 Plt Clumps, EDTA Not Reportable 09/11/16 05:10 Large Platelets Not Reportable 09/11/16 05:10 Giant Platelets Not Reportable 09/11/16 05:10 Platelet Satelliting Not Reportable 09/11/16 05:10 Plt Morphology Comment Not Reportable 09/11/16 05:10 RBC Morphology Not Reportable 09/11/16 05:10 Dimorphic RBCs Not Reportable 09/11/16 05:10 Polychromasia Not Reportable 09/11/16 05:10 Hypochromasia Not Reportable 09/11/16 05:10 Poikilocytosis Not Reportable 09/11/16 05:10 Anisocytosis 2+ 09/11/16 05:10 Microcytosis Not Reportable 09/11/16 05:10 Macrocytosis Not Reportable 09/11/16 05:10 Spherocytes Not Reportable 09/11/16 05:10 Pappenheimer Bodies Not Reportable 09/11/16 05:10 Sickle Cells Not Reportable 09/11/16 05:10 Target Cells Not Reportable 09/11/16 05:10 Tear Drop Cells Not Reportable 09/11/16 05:10 Ovalocytes Not Reportable 09/11/16 05:10 Helmet Cells Not Reportable 09/11/16 05:10 [place] Bodies Not Reportable 09/11/16 05:10 [place] Rings Not Reportable 09/11/16 05:10 [place] Cells Not Reportable 09/11/16 05:10 Bite Cells Not Reportable 09/11/16 05:10 Crenated Cell Not Reportable 09/11/16 05:10 Elliptocytes Not Reportable 09/11/16 05:10 Acanthocytes (Spur) Not Reportable 09/11/16 05:10 Rouleaux Not Reportable 09/11/16 05:10 Hemoglobin C Crystals Not Reportable 09/11/16 05:10 Schistocytes Not Reportable 09/11/16 05:10 Malaria parasites Not Reportable 09/11/16 05:10 ESR > 140.0 mm/Hr (0-20) 09/08/16 11:48 Jun Bodies Not Reportable 09/11/16 05:10 Hem Pathologist Commnt No 09/11/16 05:10 PT 12.9 Sec. (12.2-14.9) 09/03/16 00:10 INR 0.98 (0.87-1.13) 09/03/16 00:10 APTT 29.0 Sec. (24.2-36.6) 09/03/16 00:10 Thrombin Time 16.8 Sec. (15.1-19.6) 09/03/16 00:10 Fibrinogen 750 mg/dl (211-480) H 09/08/16 11:48 Antithrombin III Ag 100 % (80-120) 09/08/16 15:35 POC ABG pH 7.371 (7.35-7.45) 09/11/16 05:55 POC ABG pCO2 33.8 (35-45) L 09/11/16 05:55 POC ABG pO2 103 (80-105) 09/11/16 05:55 POC ABG HCO3 19.6 09/11/16 05:55 POC ABG Total CO2 21 09/11/16 05:55 POC ABG O2 Sat 98 09/11/16 05:55 POC ABG Base Excess -6 09/11/16 05:55 FiO2 30 % 09/11/16 05:55 Sodium 136 mmol/L (137-145) L 09/11/16 05:10 Potassium 4.4 mmol/L (3.6-5.0) 09/11/16 05:10 Chloride 98.3 mmol/L (98-107) 09/11/16 05:10 Carbon Dioxide 18 mmol/L (22-30) L 09/11/16 05:10 Anion Gap 24 mmol/L 09/11/16 05:10 BUN 107 mg/dL (7-17) H 09/11/16 05:10 Creatinine 2.6 mg/dL (0.7-1.2) H 09/11/16 05:10 Estimated GFR 24 ml/min 09/11/16 05:10 BUN/Creatinine Ratio 41.15 % 09/11/16 05:10 Glucose 187 mg/dL (65-100) H 09/11/16 05:10 POC Glucose 230 (70-105) H 09/11/16 05:17 Lactic Acid 1.60 mmol/L (0.7-2.0) 09/08/16 15:40 Calcium 8.3 mg/dL (8.4-10.2) L 09/11/16 05:10 Phosphorus 4.30 mg/dL (2.5-4.5) D 09/08/16 06:18 Magnesium 2.40 mg/dL (1.7-2.3) H 09/07/16 11:43 Total Bilirubin 0.40 mg/dL (0.1-1.2) 09/07/16 11:43 AST 14 units/L (5-40) 09/07/16 11:43 ALT 11 units/L (7-56) 09/07/16 11:43 Alkaline Phosphatase 107 units/L (35-129) 09/07/16 11:43 Ammonia 27.0 umol/L (25-60) 09/07/16 08:37 Total Creatine Kinase 67 units/L (30-135) 09/03/16 11:26 CK-MB (CK-2) 1.4 ng/mL (0.0-4.0) 09/03/16 11:26 CK-MB (CK-2) Rel Index 2.0 (0-4) 09/03/16 11:26 Troponin T < 0.010 ng/mL (0.00-0.029) 09/06/16 10:43 C-Reactive Protein 15.70 mg/dL (0.00-1.30) H 09/08/16 11:48 Total Protein 5.8 g/dL (6.3-8.2) L 09/07/16 11:43 Albumin 2.2 g/dL (3.9-5) L 09/07/16 11:43 Albumin/Globulin Ratio 0.6 % 09/07/16 11:43 Triglycerides 160 mg/dL (2-149) H 09/04/16 03:31 Cholesterol 189 mg/dL (50-199) 09/04/16 03:31 LDL Cholesterol Direct 126 mg/dL (50-130) 09/04/16 03:31 HDL Cholesterol 31 mg/dL (40-59) L 09/04/16 03:31 Cholesterol/HDL Ratio 6.09 % 09/04/16 03:31 TSH 1.010 mlU/mL (0.270-4.200) 09/07/16 08:37 HCG, Qual Negative (Negative) 09/03/16 00:10 Urine Color Yellow (Yellow) 09/09/16 14:13 Urine Turbidity Slightly-cloudy (Clear) 09/09/16 14:13 Urine pH 5.0 (5.0-7.0) 09/09/16 14:13 Ur Specific [place] 1.012 (1.003-1.030) 09/09/16 14:13 Urine Protein 30 mg/dl mg/dL (Negative) 09/09/16 14:13 Urine Glucose (UA) Neg mg/dL (Negative) 09/09/16 14:13 Urine Ketones Neg mg/dL (Negative) 09/09/16 14:13 Urine Blood Lg (Negative) 09/09/16 14:13 Urine Nitrite Neg (Negative) 09/09/16 14:13 Urine Bilirubin Neg (Negative) 09/09/16 14:13 Urine Urobilinogen < 2.0 mg/dL (<2.0) 09/09/16 14:13 Ur Leukocyte Esterase Sm (Negative) 09/09/16 14:13 Urine WBC (Auto) 25.0 /HPF (0.0-6.0) H 09/09/16 14:13 Urine RBC (Auto) > 182.0 /HPF (0.0-6.0) 09/09/16 14:13 Urine Bacteria (Auto) 1+ /HPF (Negative) 09/09/16 14:13 Urine WBC Clumps 2+ /HPF 09/07/16 02:47 Hyaline Casts 4 /LPF 09/07/16 02:47 Urine Mucus Few /HPF 09/09/16 14:13 Urine Eosinophils None seen (None Seen) 09/07/16 16:00 Urine Creatinine 66.3 mg/dL (0.1-20.0) H 09/07/16 16:00 Urine Sodium 22 mEq/L 09/07/16 16:00 Random Vancomycin 2.3 ug/mL (0-40.0) 09/09/16 03:00 Urine Opiates Screen Presumptive negative 09/03/16 15:11 Urine Methadone Screen Presumptive positive 09/03/16 15:11 Ur Barbiturates Screen Presumptive positive 09/03/16 15:11 Ur Phencyclidine Scrn Presumptive negative 09/03/16 15:11 Ur Amphetamines Screen Presumptive negative 09/03/16 15:11 U Benzodiazepines Scrn Presumptive negative 09/03/16 15:11 Urine Cocaine Screen Presumptive negative 09/03/16 15:11 U Marijuana (THC) Screen Presumptive positive 09/03/16 15:11 Drugs of Abuse Note Disclamer 09/03/16 15:11 Rheumatoid Factor 24 IU/ml (0-13) H 09/08/16 11:48 Proteinase 3 (PR3) Ab <1.0 AI (<1.0) 09/07/16 09:20 Myeloperoxidase Ab <1.0 AI (<1.0) 09/07/16 09:20 Centromere B Antibody <1.0 AI (<1.0) 09/08/16 12:02 Complement C3 148 mg/dL (90-180) 09/07/16 09:20 Complement C4 58 mg/dL (16-47) H 09/07/16 09:20 RPR Nonreactive (Nonreactive) 09/08/16 11:48 Hep Bs Antigen Non-reactive (Negative) 09/07/16 09:20 Hepatitis C Antibody Non-reactive (NonReactive) 09/07/16 09:20 HIV 1&2 Antibody Rapid Non react (Non React) 09/08/16 11:48 HIV P24 Antigen Non react (Non React) 09/08/16 11:48 Blood Type A POSITIVE 09/10/16 13:17 Antibody Screen TNR 09/10/16 13:17 DELORIS Antibody Screen Negative 09/10/16 13:17 Crossmatch See Detail 09/10/16 13:17
--- NOTE | 2016-09-11 11:59 | Cat Scan Report ---
CT scan of head without IV contrast: Compared to 09/08/16. History: Stroke followup. Findings: Large left MCA infarct involving left temporal and parietal lobe without evidence of hemorrhage. No significant interval change in size and configuration. No new infarct. Minimal mass effect of the lateral ventricle without interval change. No extra-axial fluid collection. Normal brainstem and cerebellum Impression: No significant interval change.
--- NOTE | 2016-09-11 15:53 | Progress Note ---
Assessment and Plan - Patient Problems (1) Acute respiratory failure with hypoxia Current Visit: Yes Status: Acute Plan to address problem: Continue with mechanical ventilatory support Lung protective strategies -VAP bundle, HOB >40 - Heparin for VTE prophylaxis - Stress ulcer prophylaxis -Bronchodilators- h/o asthma -VAP bundle addressed -[place] catheter in this critically ill patient - Enteral nutrition, accucheck with glycemic control - Agitation management/analgesia - daily SATs and SBTs as tolerated - ABGs and CXR Recommend trach and PEG , LTACH and chronic wean (2) Acute CVA (cerebrovascular accident) Current Visit: Yes Status: Acute Plan to address problem: tPA abruptly discontinued secondary to poorly controlled HTN CTScan -subacute MCA territory infarct Secondary stroke prophylaxis Neuroprotective measures Continue enteric feeding Aspiration precautions Extension of stroke with edema and some midline shift. Neurology following (3) Chronic renal insufficiency Current Visit: Yes Status: Acute Qualifiers: Chronic kidney disease stage: C Plan to address problem: Continues to worsen- multifactorial, medications and hypotension Continue to monitor urine output. Avoid nephrotoxic agents Adjust medication dosage for CrCl Renal following (4) Uncontrolled hypertension Current Visit: Yes Status: Acute Plan to address problem: Monitor closely and adjust anti-hypertensive medications (5) Leukocytosis (leucocytosis) Current Visit: Yes Status: Acute Qualifiers: Leukocytosis type: L Plan to address problem: Has been on empiric antibiotics, cultures are negative. Currently on steroids, recommend taper. If cultures remain negative, plan to discontinue antibiotics and monitor. Subjective Date of service: 09/11/16 Principal diagnosis: Acute CVA; Acute Encephalopathy Interval history: Remains agitated, not obeying commands. Seen and examined. Vitals, labs, medications, chart reviewed. On mechanical ventilatory support. Tube feedings at goal with anu stools. No acute overnight events Objective - Exam Narrative Exam: General: awake, alert,not tracking voice HEENT: MMM, EOMI cardiac: S1-S2 heard lungs: ventilated breath sounds abdomen: soft, nontender, nondistended bowel sounds positive extremities: no edema clubbing or cyanosis Skin: no rash or lesion Neuro: Nonresponsive, nonverbal, withdraws to touch and painful stimuli on the left side,Right hemipareis. Babinski reflexes downgoing in both feet, right foot has diminished reflex Vital Signs - 12hr 09/11/16 09/11/16 09/11/16 04:00 04:30 04:46 Temperature Pulse Rate 109 H 115 H 129 H Pulse Rate [ 120 H From Monitor] Respiratory 18 17 Rate Blood Pressure 148/82 136/78 141/86 O2 Sat by Pulse 98 94 98 Oximetry 09/11/16 09/11/16 09/11/16 05:01 05:30 06:00 Temperature Pulse Rate 128 H 144 H 132 H Pulse Rate [ From Monitor] Respiratory 16 18 17 Rate Blood Pressure 168/91 182/84 140/93 O2 Sat by Pulse 98 98 97 Oximetry 09/11/16 09/11/16 09/11/16 06:30 06:39 07:00 Temperature Pulse Rate 114 H 121 H 89 Pulse Rate [ From Monitor] Respiratory 16 17 Rate Blood Pressure 154/81 161/85 125/71 O2 Sat by Pulse 99 98 Oximetry 09/11/16 09/11/16 09/11/16 07:18 07:30 08:00 Temperature 98.8 F Pulse Rate 91 H 92 H 91 H Pulse Rate [ 91 H From Monitor] Respiratory 17 22 Rate Blood Pressure 125/71 117/78 141/77 O2 Sat by Pulse 98 98 99 Oximetry 09/11/16 09/11/16 09/11/16 08:30 09:00 09:30 Temperature Pulse Rate 82 136 H 110 H Pulse Rate [ From Monitor] Respiratory 18 20 18 Rate Blood Pressure 124/69 206/86 140/95 O2 Sat by Pulse 98 99 98 Oximetry 09/11/16 09/11/16 09/11/16 09:31 10:00 10:30 Temperature Pulse Rate 101 H 79 Pulse Rate [ From Monitor] Respiratory 25 H 18 17 Rate Blood Pressure 137/71 123/62 O2 Sat by Pulse 97 97 Oximetry 09/11/16 09/11/16 09/11/16 11:00 11:03 11:43 Temperature Pulse Rate 82 79 151 H Pulse Rate [ From Monitor] Respiratory 17 16 Rate Blood Pressure 129/68 123/70 O2 Sat by Pulse 98 98 97 Oximetry 09/11/16 09/11/16 09/11/16 12:00 12:30 13:00 Temperature 98.9 F Pulse Rate 96 H 84 92 H Pulse Rate [ 96 H From Monitor] Respiratory 18 18 18 Rate Blood Pressure 118/65 120/58 143/73 O2 Sat by Pulse 90 93 100 Oximetry 09/11/16 09/11/16 14:30 14:32 Temperature Pulse Rate 115 H Pulse Rate [ From Monitor] Respiratory 20 Rate Blood Pressure 142/79 O2 Sat by Pulse 99 Oximetry Constitutional: no acute distress, agitated, appears uncomfortable, other ( sedated) Eyes: non-icteric ENT: oropharynx moist Neck: supple, no lymphadenopathy Effort: normal, very labored Ascultation: Bilateral: clear, diminished breath sounds, rhonchi Cardiovascular: regular rate and rhythm Gastrointestinal: normoactive bowel sounds, soft, non-distended Integumentary: normal Extremities: no cyanosis, no edema, pulses normal, no ischemia or petechiae Neurologic: non-focal exam (grossly), pupils equal and round, motor strength normal and Psychiatric: other (unable to assess) CBC and BMP: 09/11/16 05:10 09/11/16 05:10 ABG, PT/INR, D-dimer: ABG POC ABG pH 7.371 (7.35-7.45) 09/11/16 05:55 POC ABG pCO2 33.8 (35-45) L 09/11/16 05:55 POC ABG pO2 103 (80-105) 09/11/16 05:55 POC ABG HCO3 19.6 09/11/16 05:55 POC ABG Total CO2 21 09/11/16 05:55 POC ABG O2 Sat 98 09/11/16 05:55 PT/INR, D-dimer PT 12.9 Sec. (12.2-14.9) 09/03/16 00:10 INR 0.98 (0.87-1.13) 09/03/16 00:10 Abnormal lab findings: Abnormal Labs 09/03/16 09/03/16 09/03/16 12:12 15:07 16:20 WBC RBC Hgb Hct MCV MCH RDW Plt Count Lymph % (Auto) [place] # Seg Neutrophils % Seg Neuts % (Manual) Lymphocytes % (Manual) Seg Neutrophils # Seg Neutrophils # Man Lymphocytes # (Manual) Monocytes # (Manual) Fibrinogen POC ABG pH 7.452 H POC ABG pCO2 POC ABG pO2 Sodium Potassium Chloride Carbon Dioxide BUN Creatinine Glucose POC Glucose 178 H Calcium Phosphorus 2.20 L Magnesium 1.60 L C-Reactive Protein Total Protein Albumin Triglycerides HDL Cholesterol Urine WBC (Auto) Urine Creatinine Rheumatoid Factor Complement C4 Crossmatch 09/03/16 09/03/1617 17:57 17:58 23:50 WBC RBC Hgb Hct MCV MCH RDW Plt Count Lymph % (Auto) [place] # Seg Neutrophils % Seg Neuts % (Manual) Lymphocytes % (Manual) Seg Neutrophils # Seg Neutrophils # Man Lymphocytes # (Manual) Monocytes # (Manual) Fibrinogen POC ABG pH POC ABG pCO2 POC ABG pO2 Sodium Potassium Chloride Carbon Dioxide BUN Creatinine Glucose POC Glucose 162 H 145 H Calcium Phosphorus 2.30 L Magnesium C-Reactive Protein Total Protein Albumin Triglycerides HDL Cholesterol Urine WBC (Auto) Urine Creatinine Rheumatoid Factor Complement C4 Crossmatch 09/04/16 09/04/16 09/04/16 03:31 03:31 05:42 WBC RBC Hgb 9.7 L D Hct MCV 72 L MCH 23 L RDW 17.5 H Plt Count Lymph % (Auto) 11.1 L [place] # Seg Neutrophils % 84.3 H Seg Neuts % (Manual) Lymphocytes % (Manual) Seg Neutrophils # 8.9 H Seg Neutrophils # Man Lymphocytes # (Manual) Monocytes # (Manual) Fibrinogen POC ABG pH POC ABG pCO2 POC ABG pO2 Sodium 135 L Potassium 2.9 L* Chloride 97.2 L Carbon Dioxide 19 L BUN Creatinine 1.7 H Glucose 170 H POC Glucose 152 H Calcium Phosphorus Magnesium C-Reactive Protein Total Protein Albumin Triglycerides 160 H HDL Cholesterol 31 L Urine WBC (Auto) Urine Creatinine Rheumatoid Factor Complement C4 Crossmatch 09/04/16 09/04/16 09/04/16 11:34 17:46 23:29 WBC RBC Hgb Hct MCV MCH RDW Plt Count Lymph % (Auto) [place] # Seg Neutrophils % Seg Neuts % (Manual) Lymphocytes % (Manual) Seg Neutrophils # Seg Neutrophils # Man Lymphocytes # (Manual) Monocytes # (Manual) Fibrinogen POC ABG pH POC ABG pCO2 POC ABG pO2 Sodium Potassium Chloride Carbon Dioxide BUN Creatinine Glucose POC Glucose 165 H 210 H 139 H Calcium Phosphorus Magnesium C-Reactive Protein Total Protein Albumin Triglycerides HDL Cholesterol Urine WBC (Auto) Urine Creatinine Rheumatoid Factor Complement C4 Crossmatch 09/05/16 09/05/16 09/05/16 04:05 04:05 05:38 WBC RBC Hgb Hct MCV 76 L D MCH 23 L RDW 17.8 H Plt Count Lymph % (Auto) [place] # Seg Neutrophils % Seg Neuts % (Manual) Lymphocytes % (Manual) Seg Neutrophils # Seg Neutrophils # Man Lymphocytes # (Manual) Monocytes # (Manual) Fibrinogen POC ABG pH POC ABG pCO2 POC ABG pO2 Sodium 134 L Potassium Chloride Carbon Dioxide 18 L BUN Creatinine 1.8 H Glucose 192 H POC Glucose 175 H Calcium Phosphorus Magnesium C-Reactive Protein Total Protein Albumin Triglycerides HDL Cholesterol Urine WBC (Auto) Urine Creatinine Rheumatoid Factor Complement C4 Crossmatch 09/05/16 09/05/16 09/05/16 11:38 17:48 23:22 WBC RBC Hgb Hct MCV MCH RDW Plt Count Lymph % (Auto) [place] # Seg Neutrophils % Seg Neuts % (Manual) Lymphocytes % (Manual) Seg Neutrophils # Seg Neutrophils # Man Lymphocytes # (Manual) Monocytes # (Manual) Fibrinogen POC ABG pH POC ABG pCO2 POC ABG pO2 Sodium Potassium Chloride Carbon Dioxide BUN Creatinine Glucose POC Glucose 164 H 186 H 195 H Calcium Phosphorus Magnesium C-Reactive Protein Total Protein Albumin Triglycerides HDL Cholesterol Urine WBC (Auto) Urine Creatinine Rheumatoid Factor Complement C4 Crossmatch 09/06/16 09/06/16 09/06/16 04:12 05:59 07:32 WBC RBC Hgb Hct MCV MCH RDW Plt Count Lymph % (Auto) [place] # Seg Neutrophils % Seg Neuts % (Manual) Lymphocytes % (Manual) Seg Neutrophils # Seg Neutrophils # Man Lymphocytes # (Manual) Monocytes # (Manual) Fibrinogen POC ABG pH 7.514 H POC ABG pCO2 29.1 L POC ABG pO2 72 L Sodium 133 L Potassium 3.4 L Chloride 94.9 L Carbon Dioxide 19 L BUN 30 H Creatinine 2.1 H Glucose 139 H POC Glucose 146 H Calcium Phosphorus Magnesium C-Reactive Protein Total Protein Albumin Triglycerides HDL Cholesterol Urine WBC (Auto) Urine Creatinine Rheumatoid Factor Complement C4 Crossmatch 09/06/16 09/06/16 09/06/16 11:57 17:58 19:02 WBC RBC Hgb Hct MCV MCH RDW Plt Count Lymph % (Auto) [place] # Seg Neutrophils % Seg Neuts % (Manual) Lymphocytes % (Manual) Seg Neutrophils # Seg Neutrophils # Man Lymphocytes # (Manual) Monocytes # (Manual) Fibrinogen POC ABG pH 7.465 H POC ABG pCO2 32.0 L POC ABG pO2 Sodium Potassium Chloride Carbon Dioxide BUN Creatinine Glucose POC Glucose 165 H 160 H Calcium Phosphorus Magnesium C-Reactive Protein Total Protein Albumin Triglycerides HDL Cholesterol Urine WBC (Auto) Urine Creatinine Rheumatoid Factor Complement C4 Crossmatch 0709/07/16 09/07/16 23:45 02:47 02:47 WBC RBC Hgb Hct MCV MCH RDW Plt Count Lymph % (Auto) [place] # Seg Neutrophils % Seg Neuts % (Manual) Lymphocytes % (Manual) Seg Neutrophils # Seg Neutrophils # Man Lymphocytes # (Manual) Monocytes # (Manual) Fibrinogen POC ABG pH POC ABG pCO2 POC ABG pO2 Sodium Potassium Chloride Carbon Dioxide BUN Creatinine Glucose POC Glucose 204 H Calcium Phosphorus Magnesium C-Reactive Protein Total Protein Albumin Triglycerides HDL Cholesterol Urine WBC (Auto) 68.0 H Urine Creatinine 106.1 H Rheumatoid Factor Complement C4 Crossmatch 09/07/16 09/07/16 09/07/16 04:50 06:19 06:39 WBC RBC Hgb Hct MCV MCH RDW Plt Count Lymph % (Auto) [place] # Seg Neutrophils % Seg Neuts % (Manual) Lymphocytes % (Manual) Seg Neutrophils # Seg Neutrophils # Man Lymphocytes # (Manual) Monocytes # (Manual) Fibrinogen POC ABG pH 7.457 H POC ABG pCO2 32.1 L POC ABG pO2 76 L Sodium 132 L Potassium Chloride 94.7 L Carbon Dioxide BUN 53 H Creatinine 2.9 H Glucose 151 H POC Glucose 149 H Calcium Phosphorus Magnesium C-Reactive Protein Total Protein Albumin Triglycerides HDL Cholesterol Urine WBC (Auto) Urine Creatinine Rheumatoid Factor Complement C4 Crossmatch 09/07/16 09/07/16 09/07/16 09:20 11:43 11:43 WBC 19.4 H RBC Hgb 8.3 L Hct 26.4 L D MCV 72 L D MCH 22 L RDW 17.9 H Plt Count Lymph % (Auto) 8.5 L [place] # 1.0 H Seg Neutrophils % 85.8 H Seg Neuts % (Manual) Lymphocytes % (Manual) Seg Neutrophils # 16.6 H Seg Neutrophils # Man Lymphocytes # (Manual) Monocytes # (Manual) Fibrinogen POC ABG pH POC ABG pCO2 POC ABG pO2 Sodium 134 L Potassium Chloride 97.2 L Carbon Dioxide 20 L BUN 58 H Creatinine 2.9 H Glucose 147 H POC Glucose Calcium Phosphorus 2.40 L Magnesium 2.40 H C-Reactive Protein Total Protein 5.8 L Albumin 2.2 L Triglycerides HDL Cholesterol Urine WBC (Auto) Urine Creatinine Rheumatoid Factor Complement C4 58 H Crossmatch 09/07/16 09/07/16 09/07/16 11:50 16:00 17:31 WBC RBC Hgb Hct MCV MCH RDW Plt Count Lymph % (Auto) [place] # Seg Neutrophils % Seg Neuts % (Manual) Lymphocytes % (Manual) Seg Neutrophils # Seg Neutrophils # Man Lymphocytes # (Manual) Monocytes # (Manual) Fibrinogen POC ABG pH POC ABG pCO2 POC ABG pO2 158 H Sodium Potassium Chloride Carbon Dioxide BUN Creatinine Glucose POC Glucose 175 H Calcium Phosphorus Magnesium C-Reactive Protein Total Protein Albumin Triglycerides HDL Cholesterol Urine WBC (Auto) Urine Creatinine 66.3 H Rheumatoid Factor Complement C4 Crossmatch 09/07/16 09/08/16 09/08/16 23:50 05:46 06:18 WBC 17.8 H RBC 3.58 L Hgb 8.1 L Hct 25.5 L MCV 71 L MCH 23 L RDW 18.4 H Plt Count Lymph % (Auto) [place] # Seg Neutrophils % Seg Neuts % (Manual) 92.0 H Lymphocytes % (Manual) 6.0 L Seg Neutrophils # Seg Neutrophils # Man 16.4 H Lymphocytes # (Manual) 1.1 L Monocytes # (Manual) Fibrinogen POC ABG pH POC ABG pCO2 34.3 L POC ABG pO2 71 L Sodium Potassium Chloride Carbon Dioxide BUN Creatinine Glucose POC Glucose 216 H Calcium Phosphorus Magnesium C-Reactive Protein Total Protein Albumin Triglycerides HDL Cholesterol Urine WBC (Auto) Urine Creatinine Rheumatoid Factor Complement C4 Crossmatch 09/08/16 09/08/16 09/08/16 06:18 06:51 10:55 WBC RBC Hgb Hct MCV MCH RDW Plt Count Lymph % (Auto) [place] # Seg Neutrophils % Seg Neuts % (Manual) Lymphocytes % (Manual) Seg Neutrophils # Seg Neutrophils # Man Lymphocytes # (Manual) Monocytes # (Manual) Fibrinogen POC ABG pH POC ABG pCO2 POC ABG pO2 Sodium 133 L Potassium Chloride 96.9 L Carbon Dioxide 20 L BUN 63 H Creatinine 2.7 H Glucose 195 H POC Glucose 204 H 169 H Calcium Phosphorus Magnesium C-Reactive Protein Total Protein Albumin Triglycerides HDL Cholesterol Urine WBC (Auto) Urine Creatinine Rheumatoid Factor Complement C4 Crossmatch 09/08/16 09/08/16 09/08/16 11:48 11:48 11:48 WBC RBC Hgb Hct MCV MCH RDW Plt Count Lymph % (Auto) [place] # Seg Neutrophils % Seg Neuts % (Manual) Lymphocytes % (Manual) Seg Neutrophils # Seg Neutrophils # Man Lymphocytes # (Manual) Monocytes # (Manual) Fibrinogen 750 H POC ABG pH POC ABG pCO2 POC ABG pO2 Sodium Potassium Chloride Carbon Dioxide BUN Creatinine Glucose POC Glucose Calcium Phosphorus Magnesium C-Reactive Protein 15.70 H Total Protein Albumin Triglycerides HDL Cholesterol Urine WBC (Auto) Urine Creatinine Rheumatoid Factor 24 H Complement C4 Crossmatch 09/08/16 09/09/16 09/09/16 18:25 00:24 03:00 WBC 27.9 H RBC Hgb 8.7 L Hct 28.1 L MCV 72 L MCH 22 L RDW 18.4 H Plt Count 485 H Lymph % (Auto) [place] # Seg Neutrophils % Seg Neuts % (Manual) 77.0 H Lymphocytes % (Manual) 9.0 L Seg Neutrophils # Seg Neutrophils # Man 21.5 H Lymphocytes # (Manual) Monocytes # (Manual) 2.0 H Fibrinogen POC ABG pH POC ABG pCO2 POC ABG pO2 Sodium Potassium Chloride Carbon Dioxide BUN Creatinine Glucose POC Glucose 184 H 216 H Calcium Phosphorus Magnesium C-Reactive Protein Total Protein Albumin Triglycerides HDL Cholesterol Urine WBC (Auto) Urine Creatinine Rheumatoid Factor Complement C4 Crossmatch 09/09/16 09/09/16 09/09/16 03:00 04:04 05:41 WBC RBC Hgb Hct MCV MCH RDW Plt Count Lymph % (Auto) [place] # Seg Neutrophils % Seg Neuts % (Manual) Lymphocytes % (Manual) Seg Neutrophils # Seg Neutrophils # Man Lymphocytes # (Manual) Monocytes # (Manual) Fibrinogen POC ABG pH POC ABG pCO2 POC ABG pO2 121 H Sodium 135 L Potassium Chloride 96.3 L Carbon Dioxide 21 L BUN 83 H Creatinine 3.0 H Glucose 135 H POC Glucose 155 H Calcium Phosphorus Magnesium C-Reactive Protein Total Protein Albumin Triglycerides HDL Cholesterol Urine WBC (Auto) Urine Creatinine Rheumatoid Factor Complement C4 Crossmatch 09/09/16 09/09/16 09/09/16 11:55 14:13 17:33 WBC RBC Hgb Hct MCV MCH RDW Plt Count Lymph % (Auto) [place] # Seg Neutrophils % Seg Neuts % (Manual) Lymphocytes % (Manual) Seg Neutrophils # Seg Neutrophils # Man Lymphocytes # (Manual) Monocytes # (Manual) Fibrinogen POC ABG pH POC ABG pCO2 POC ABG pO2 Sodium Potassium Chloride Carbon Dioxide BUN Creatinine Glucose POC Glucose 186 H 211 H Calcium Phosphorus Magnesium C-Reactive Protein Total Protein Albumin Triglycerides HDL Cholesterol Urine WBC (Auto) 25.0 H Urine Creatinine Rheumatoid Factor Complement C4 Crossmatch 09/09/16 09/10/16 09/10/16 23:13 05:09 05:17 WBC 15.8 H RBC 3.25 L Hgb 7.3 L Hct 22.9 L MCV 71 L MCH 23 L RDW 18.4 H Plt Count Lymph % (Auto) [place] # Seg Neutrophils % Seg Neuts % (Manual) 91.0 H Lymphocytes % (Manual) 4.0 L Seg Neutrophils # Seg Neutrophils # Man 14.4 H Lymphocytes # (Manual) 0.6 L Monocytes # (Manual) Fibrinogen POC ABG pH POC ABG pCO2 POC ABG pO2 74 L Sodium Potassium Chloride Carbon Dioxide BUN Creatinine Glucose POC Glucose 215 H Calcium Phosphorus Magnesium C-Reactive Protein Total Protein Albumin Triglycerides HDL Cholesterol Urine WBC (Auto) Urine Creatinine Rheumatoid Factor Complement C4 Crossmatch 09/10/16 09/10/16 09/10/16 05:17 11:31 13:17 WBC RBC Hgb Hct MCV MCH RDW Plt Count Lymph % (Auto) [place] # Seg Neutrophils % Seg Neuts % (Manual) Lymphocytes % (Manual) Seg Neutrophils # Seg Neutrophils # Man Lymphocytes # (Manual) Monocytes # (Manual) Fibrinogen POC ABG pH POC ABG pCO2 POC ABG pO2 Sodium Potassium Chloride Carbon Dioxide 21 L BUN 93 H Creatinine 2.9 H Glucose 146 H POC Glucose 188 H Calcium 8.1 L Phosphorus Magnesium C-Reactive Protein Total Protein Albumin Triglycerides HDL Cholesterol Urine WBC (Auto) Urine Creatinine Rheumatoid Factor Complement C4 Crossmatch See Detail 09/10/16 09/10/16 09/11/16 17:20 23:32 05:10 WBC 28.4 H RBC Hgb 9.2 L Hct 29.3 L D MCV 73 L MCH 23 L RDW 18.9 H Plt Count 452 H Lymph % (Auto) [place] # Seg Neutrophils % Seg Neuts % (Manual) 89.5 H Lymphocytes % (Manual) 2.0 L Seg Neutrophils # Seg Neutrophils # Man 25.4 H Lymphocytes # (Manual) 0.6 L Monocytes # (Manual) 1.3 H Fibrinogen POC ABG pH POC ABG pCO2 POC ABG pO2 Sodium Potassium Chloride Carbon Dioxide BUN Creatinine Glucose POC Glucose 199 H 186 H Calcium Phosphorus Magnesium C-Reactive Protein Total Protein Albumin Triglycerides HDL Cholesterol Urine WBC (Auto) Urine Creatinine Rheumatoid Factor Complement C4 Crossmatch 09/11/16 09/11/16 09/11/16 05:10 05:17 05:55 WBC RBC Hgb Hct MCV MCH RDW Plt Count Lymph % (Auto) [place] # Seg Neutrophils % Seg Neuts % (Manual) Lymphocytes % (Manual) Seg Neutrophils # Seg Neutrophils # Man Lymphocytes # (Manual) Monocytes # (Manual) Fibrinogen POC ABG pH POC ABG pCO2 33.8 L POC ABG pO2 Sodium 136 L Potassium Chloride Carbon Dioxide 18 L BUN 107 H Creatinine 2.6 H Glucose 187 H POC Glucose 230 H Calcium 8.3 L Phosphorus Magnesium C-Reactive Protein Total Protein Albumin Triglycerides HDL Cholesterol Urine WBC (Auto) Urine Creatinine Rheumatoid Factor Complement C4 Crossmatch 09/11/16 12:02 WBC RBC Hgb Hct MCV MCH RDW Plt Count Lymph % (Auto) [place] # Seg Neutrophils % Seg Neuts % (Manual) Lymphocytes % (Manual) Seg Neutrophils # Seg Neutrophils # Man Lymphocytes # (Manual) Monocytes # (Manual) Fibrinogen POC ABG pH POC ABG pCO2 POC ABG pO2 Sodium Potassium Chloride Carbon Dioxide BUN Creatinine Glucose POC Glucose 191 H Calcium Phosphorus Magnesium C-Reactive Protein Total Protein Albumin Triglycerides HDL Cholesterol Urine WBC (Auto) Urine Creatinine Rheumatoid Factor Complement C4 Crossmatch Allied health notes reviewed: RT
[2016-09-11] MEDS: HALDOL IV PRN (21:30)
[2016-09-11] MEDS: APRESOLINE IV PRN (22:05)
[2016-09-12] MEDS: HumuLIN R SUB-Q SCH ×4 (00:17→18:19)
[2016-09-12] MEDS: fentaNYL DRIP Premix 2,000 MCG/100 ML BAG IV SCH ×4 (06:00→20:50)
[2016-09-12] MEDS: HEPARIN SUB-Q SCH ×3 (06:00→22:14)
[2016-09-12] MEDS: DIPRIVAN 10 MG/ML 1,000 MG/100 ML BOTTLE IV SCH ×4 (06:10→20:49)
[2016-09-12 07:18] LABS: Hematocrit 25.9 % (30.3-42.9); Hemoglobin 8.3 gm/dl (10.1-14.3); Mean Corpuscular HGB Conc 32 % (30-34); Mean Corpuscular Volume 73 fl (79-97); Platelet Count 362 K/mm3 (140-440); Red Blood Count 3.54 M/mm3 (3.65-5.03); Red Cell Distribution Width 18.9 % (13.2-15.2)
[2016-09-12 07:20] LABS: Mean Corpuscular Hemoglobin 23 pg (28-32)
[2016-09-12] MEDS: CATAPRES PO SCH ×2 (07:51→18:19)
[2016-09-12 07:53] LABS: BUN/Creatinine Ratio 42.59
--- NOTE | 2016-09-12 08:30 | XRay Report ---
AP CHEST :09/12/16 02:26 CLINICAL: Intubated.Follow up respiratory failure. COMPARISON:09/11/16 FINDINGS: The endotracheal tube is in satisfactory position. The feeding tube is satisfactory. Left PICC line tip is in the SVC. Mild bibasal subsegmental atelectasis. Lungs are otherwise clear. Normal heart and pulmonary vessels. No pneumothorax. IMPRESSION: Mild bibasal subsegmental atelectasis.No congestive heart failure or pneumonia.
--- NOTE | 2016-09-12 08:52 | Event Note ---
Date: 09/12/16 Rehab F/U; Initially consulted s/p CVA for facility based rehab consideration. Pt has remained intubated since 09/07; unable to participate in therapies. Most appropriate for LTACH at present. Will sign-off at this time; please re- consult if there is a change in status.
[2016-09-12] MEDS: PLAVIX FEEDTUBE SCH (09:07)
[2016-09-12] MEDS: ASPIRIN PO SCH (09:07)
[2016-09-12] MEDS: PEPCID FEEDTUBE SCH (09:07)
[2016-09-12 10:00] LABS: Anisocytosis 2+; Basophils % (Manual) 0 % (0.0-1.8); Eosinophils % (Manual) 0 % (0.0-4.3); Hypochromasia 1+; Nucleated Red Blood Cells 0.5 % (0.0-0.9); Total Cells Counted 200
[2016-09-12 10:01] LABS: Platelet Estimate Consistent w Auto
--- NOTE | 2016-09-12 10:39 | Progress Note ---
Subjective Principal diagnosis: Acute CVA; Acute Encephalopathy Interval history: Patient was seen today for follow-up of multiple renal related issues Blood pressure remains labile off-and-on Is currently being evaluated for rehabilitation Vitals labs intake output and medications were reviewed Social history: Reviewed Family history: Reviewed Allergy: Reviewed Physical examination Vitals: Reviewed HEENT: Oral mucosa moist Neck: Supple no JVD Chest: Bilateral clear to auscultation no crackles rales or wheezes Heart: Regular rate and rhythm S1 and S2 heard Abdomen: Soft nontender no voluntary guarding rigidity rebound Extremity: Minimal edema dry skin Dermatology; dry skin no edema Neurological; patient is not arousable Assessment and plan Renal failure: Worsening renal function over time and the patient does have underlying chronic kidney disease with bilateral atrophic kidneys Acute on chronic renal failure current creatinine is around 2.7 baseline around 1.7 Hypernatremia corrected ,free water as needed Labile hypertension to follow Metabolic acidosis better Hyponatremia: Multifactorial Status post stroke: Currently being followed by neurology Will order for a renal arterial Doppler, as well as Charlie plasma renin level Family has been educated about renal related issues Objective - Vital Signs Vital signs: Vital Signs - 12hr 09/11/16 09/11/16 09/11/16 23:00 23:30 23:49 Temperature Pulse Rate 131 H 118 H 89 Respiratory 14 17 Rate Respiratory Rate [ Generalized] Blood Pressure 163/84 155/85 155/85 O2 Sat by Pulse 100 100 100 Oximetry 09/12/16 09/12/16 09/12/16 00:00 00:30 01:00 Temperature 99.6 F Pulse Rate 94 H 88 91 H Respiratory 18 18 18 Rate Respiratory Rate [ Generalized] Blood Pressure 126/71 129/61 131/72 O2 Sat by Pulse 100 100 100 Oximetry 09/12/16 09/12/16 09/12/16 01:30 02:00 02:30 Temperature Pulse Rate 91 H 80 92 H Respiratory 18 17 18 Rate Respiratory Rate [ Generalized] Blood Pressure 125/67 124/68 139/74 O2 Sat by Pulse 100 100 100 Oximetry 09/12/16 09/12/16 09/12/16 03:00 03:24 03:30 Temperature 99.8 F H Pulse Rate 118 H 99 H Respiratory 17 15 Rate Respiratory Rate [ Generalized] Blood Pressure 153/89 136/74 O2 Sat by Pulse 100 100 Oximetry 09/12/16 09/12/16 09/12/16 04:00 04:30 05:00 Temperature Pulse Rate 99 H 92 H 87 Respiratory 19 19 18 Rate Respiratory 22 Rate [ Generalized] Blood Pressure 145/73 128/63 128/64 O2 Sat by Pulse 100 100 100 Oximetry 09/12/16 09/12/16 09/12/16 05:30 05:33 06:00 Temperature Pulse Rate 100 H 115 H 87 Respiratory 15 18 Rate Respiratory Rate [ Generalized] Blood Pressure 140/73 128/64 132/67 O2 Sat by Pulse 99 100 99 Oximetry 09/12/16 09/12/16 09/12/16 06:30 07:00 07:27 Temperature Pulse Rate 87 91 H 101 H Respiratory 18 18 Rate Respiratory Rate [ Generalized] Blood Pressure 132/64 142/70 142/74 O2 Sat by Pulse 97 99 99 Oximetry 09/12/16 09/12/16 09/12/16 07:31 07:51 08:00 Temperature 98.7 F Pulse Rate 123 H 102 H 90 Respiratory 17 18 Rate Respiratory Rate [ Generalized] Blood Pressure 166/87 166/67 129/69 O2 Sat by Pulse 100 100 Oximetry 09/12/16 09/12/16 09/12/16 08:30 09:00 09:30 Temperature Pulse Rate 86 81 84 Respiratory 9 L 18 17 Rate Respiratory Rate [ Generalized] Blood Pressure 123/61 148/68 134/67 O2 Sat by Pulse 98 99 99 Oximetry 09/12/16 09/12/16 10:00 10:23 Temperature Pulse Rate 137 H Respiratory 24 Rate Respiratory Rate [ Generalized] Blood Pressure 203/109 O2 Sat by Pulse 100 98 Oximetry - Lab 09/12/16 06:45 09/12/16 06:45 Most recent lab results Calcium 8.0 mg/dL (8.4-10.2) L 09/12/16 06:45 Phosphorus 4.30 mg/dL (2.5-4.5) D 09/08/16 06:18 Magnesium 2.40 mg/dL (1.7-2.3) H 09/07/16 11:43 Urine Creatinine 66.3 mg/dL (0.1-20.0) H 09/07/16 16:00 Urine Sodium 22 mEq/L 09/07/16 16:00
--- NOTE | 2016-09-12 10:53 | Progress Note ---
Assessment and Plan (1) Acute CVA (cerebrovascular accident) Current Visit: Yes Status: Acute Plan to address problem: - out of tpA window - awaiting neurology evaluation - unable to get MRI done but still moving all extremities and no clinical deterioration - will increase scheduled hydralazine and wean off labetolo - continue aspiration precautions (2) Hypertensive emergency Current Visit: Yes Status: Acute Plan to address problem: - increase p.o. med doses - wean off labetalol (3) Obesity (BMI 35.0-39.9 without comorbidity) Current Visit: Yes Status: Chronic Plan to address problem: - weight loss counselling and support once more stable (4) Type 2 diabetes mellitus Current Visit: Yes Status: Chronic Qualifiers: Diabetes mellitus complication status: D Diabetes mellitus complication detail: D Diabetic retinopathy severity: D Proliferative retinopathy type: P Diabetes mellitus macular edema: D Diabetes mellitus oil heaterman insulin use : D Laterality: L Chronic kidney disease stage: C Plan to address problem: - continue SSI (5) Discharge planning issues Current Visit: Yes Status: Acute Plan to address problem: - she remains critically ill on life sustaining interventions including IV labetalol; at risk for further acute deterioration including and will be observed in the ICU overnight ...care plan discussed with brother at bedside ....30' CCT without overlap - Patient Problems (1) Acute respiratory failure with hypoxia Current Visit: Yes Status: Acute Plan to address problem: - continue aspiration precautions / address VAP bundles - continue to wean oxygen for MAP > 94% - continue bronchodilators and pulmonary toilet - will taper solumedrol (no active needs pulmonary-[place]) - complete empiric levaquin dosing - will consult for trach and PEG placement (2) Acute CVA (cerebrovascular accident) Current Visit: Yes Status: Acute Plan to address problem: - out of tpA window (initially stopped due to uncontrolled HTN) - Left MCA teritory stroke with some midline shift on last CT - seen by neurology and prognosis for recovery of mental status guarded to poor - optimizing secondary prevention modalities now (BP, lipid anti-platelet therapy) - will continue steroid taper (3) Hypertensive emergency Current Visit: Yes Status: Acute Plan to address problem: - continue clonidine at 0.3mg q8h - add hydralazine at 50mg bid (with hold parameters) - continue prn IV rescue labetalol (4) Obesity (BMI 35.0-39.9 without comorbidity) Current Visit: Yes Status: Chronic Plan to address problem: - weight loss counselling and support once more stable - adjust tube feeds per sewer pipe layer's recommendations (5) Type 2 diabetes mellitus Current Visit: Yes Status: Chronic Qualifiers: Diabetes mellitus complication status: D Diabetes mellitus complication detail: D Diabetic retinopathy severity: D Proliferative retinopathy type: P Diabetes mellitus macular edema: D Diabetes mellitus oil heaterman insulin use : D Laterality: L Chronic kidney disease stage: C Plan to address problem: - continue SSI - begin lantus at 5units sq q24h (6) Leukocytosis (leucocytosis) Current Visit: Yes Status: Acute Qualifiers: Leukocytosis type: L Plan to address problem: - afebrile - ? steroid leucocytosis - continue empiric levaquin - get CRP & lactate and trend - taper systemic steroids - follow clinically - watch for diarrhea re: possible C-diff infection (7) Discharge planning issues Current Visit: Yes Status: Acute Plan to address problem: - she remains critically ill on life sustaining interventions including MVS and at risk for further acute deterioration including and will be observed in the ICU [facility] ....35' CCT without overlap Subjective Date of service: 09/12/16 Principal diagnosis: Acute CVA; Acute Encephalopathy; Acute Respiratory Failure on MVS Interval history: Seen and examined at bedside; 24 hour events reviewed; nursing and respiratory care staff consulted; no adverse overnight events reported to me; sedated; non- purposefully agitated during earlier sedation holiday; no emesis or overt aspiration and tolerating tube feeds; cardene drip on hold for now; AMS is persistent Objective Vital Signs - 12hr 09/11/16 09/11/16 09/11/16 23:00 23:30 23:49 Temperature Pulse Rate 131 H 118 H 89 Respiratory 14 17 Rate Respiratory Rate [ Generalized] Blood Pressure 163/84 155/85 155/85 O2 Sat by Pulse 100 100 100 Oximetry 09/12/16 09/12/16 09/12/16 00:00 00:30 01:00 Temperature 99.6 F Pulse Rate 94 H 88 91 H Respiratory 18 18 18 Rate Respiratory Rate [ Generalized] Blood Pressure 126/71 129/61 131/72 O2 Sat by Pulse 100 100 100 Oximetry 09/12/16 09/12/16 09/12/16 01:30 02:00 02:30 Temperature Pulse Rate 91 H 80 92 H Respiratory 18 17 18 Rate Respiratory Rate [ Generalized] Blood Pressure 125/67 124/68 139/74 O2 Sat by Pulse 100 100 100 Oximetry 09/12/16 09/12/16 09/12/16 03:00 03:24 03:30 Temperature 99.8 F H Pulse Rate 118 H 99 H Respiratory 17 15 Rate Respiratory Rate [ Generalized] Blood Pressure 153/89 136/74 O2 Sat by Pulse 100 100 Oximetry 09/12/16 09/12/16 09/12/16 04:00 04:30 05:00 Temperature Pulse Rate 99 H 92 H 87 Respiratory 19 19 18 Rate Respiratory 22 Rate [ Generalized] Blood Pressure 145/73 128/63 128/64 O2 Sat by Pulse 100 100 100 Oximetry 09/12/16 09/12/16 09/12/16 05:30 05:33 06:00 Temperature Pulse Rate 100 H 115 H 87 Respiratory 15 18 Rate Respiratory Rate [ Generalized] Blood Pressure 140/73 128/64 132/67 O2 Sat by Pulse 99 100 99 Oximetry 09/12/16 09/12/16 09/12/16 06:30 07:00 07:27 Temperature Pulse Rate 87 91 H 101 H Respiratory 18 18 Rate Respiratory Rate [ Generalized] Blood Pressure 132/64 142/70 142/74 O2 Sat by Pulse 97 99 99 Oximetry 09/12/16 09/12/16 09/12/16 07:31 07:51 08:00 Temperature 98.7 F Pulse Rate 123 H 102 H 90 Respiratory 17 18 Rate Respiratory Rate [ Generalized] Blood Pressure 166/87 166/67 129/69 O2 Sat by Pulse 100 100 Oximetry 09/12/16 09/12/16 09/12/16 08:30 09:00 09:30 Temperature Pulse Rate 86 81 84 Respiratory 9 L 18 17 Rate Respiratory Rate [ Generalized] Blood Pressure 123/61 148/68 134/67 O2 Sat by Pulse 98 99 99 Oximetry 09/12/16 09/12/16 10:00 10:23 Temperature Pulse Rate 137 H Respiratory 24 Rate Respiratory Rate [ Generalized] Blood Pressure 203/109 O2 Sat by Pulse 100 98 Oximetry Constitutional: no acute distress, agitated, other (sedated) Eyes: non-icteric ENT: oropharynx moist Neck: supple, no lymphadenopathy Effort: normal Ascultation: Bilateral: clear Cardiovascular: regular rate and rhythm Gastrointestinal: normoactive bowel sounds, soft, non-distended Integumentary: normal Extremities: no cyanosis, no edema, pulses normal, no ischemia or petechiae Neurologic: non-focal exam (grossly), pupils equal and round, other (sedated) Psychiatric: other (unable to assess) CBC and BMP: 09/12/16 06:45 09/12/16 06:45 ABG, PT/INR, D-dimer: ABG POC ABG pH 7.375 (7.35-7.45) 09/12/16 05:32 POC ABG pCO2 34.6 (35-45) L 09/12/16 05:32 POC ABG pO2 105 (80-105) 09/12/16 05:32 POC ABG HCO3 20.2 09/12/16 05:32 POC ABG Total CO2 21 09/12/16 05:32 POC ABG O2 Sat 98 09/12/16 05:32 PT/INR, D-dimer PT 12.9 Sec. (12.2-14.9) 09/03/16 00:10 INR 0.98 (0.87-1.13) 09/03/16 00:10 Abnormal lab findings: Abnormal Labs 09/03/16 09/03/16 09/03/16 12:12 15:07 16:20 WBC RBC Hgb Hct MCV MCH RDW Plt Count Lymph % (Auto) [place] # Seg Neutrophils % Seg Neuts % (Manual) Lymphocytes % (Manual) Seg Neutrophils # Seg Neutrophils # Man Lymphocytes # (Manual) Monocytes # (Manual) Fibrinogen POC ABG pH 7.452 H POC ABG pCO2 POC ABG pO2 Sodium Potassium Chloride Carbon Dioxide BUN Creatinine Glucose POC Glucose 178 H Calcium Phosphorus 2.20 L Magnesium 1.60 L C-Reactive Protein Total Protein Albumin Triglycerides HDL Cholesterol Urine WBC (Auto) Urine Creatinine Rheumatoid Factor Complement C4 Crossmatch 09/03/16 09/03/16 09/03/16 17:57 17:58 23:50 WBC RBC Hgb Hct MCV MCH RDW Plt Count Lymph % (Auto) [place] # Seg Neutrophils % Seg Neuts % (Manual) Lymphocytes % (Manual) Seg Neutrophils # Seg Neutrophils # Man Lymphocytes # (Manual) Monocytes # (Manual) Fibrinogen POC ABG pH POC ABG pCO2 POC ABG pO2 Sodium Potassium Chloride Carbon Dioxide BUN Creatinine Glucose POC Glucose 162 H 145 H Calcium Phosphorus 2.30 L Magnesium C-Reactive Protein Total Protein Albumin Triglycerides HDL Cholesterol Urine WBC (Auto) Urine Creatinine Rheumatoid Factor Complement C4 Crossmatch 09/04/16 09/04/16 09/04/16 03:31 03:31 05:42 WBC RBC Hgb 9.7 L D Hct MCV 72 L MCH 23 L RDW 17.5 H Plt Count Lymph % (Auto) 11.1 L [place] # Seg Neutrophils % 84.3 H Seg Neuts % (Manual) Lymphocytes % (Manual) Seg Neutrophils # 8.9 H Seg Neutrophils # Man Lymphocytes # (Manual) Monocytes # (Manual) Fibrinogen POC ABG pH POC ABG pCO2 POC ABG pO2 Sodium 135 L Potassium 2.9 L* Chloride 97.2 L Carbon Dioxide 19 L BUN Creatinine 1.7 H Glucose 170 H POC Glucose 152 H Calcium Phosphorus Magnesium C-Reactive Protein Total Protein Albumin Triglycerides 160 H HDL Cholesterol 31 L Urine WBC (Auto) Urine Creatinine Rheumatoid Factor Complement C4 Crossmatch 09/04/16 09/04/16 09/04/16 11:34 17:46 23:29 WBC RBC Hgb Hct MCV MCH RDW Plt Count Lymph % (Auto) [place] # Seg Neutrophils % Seg Neuts % (Manual) Lymphocytes % (Manual) Seg Neutrophils # Seg Neutrophils # Man Lymphocytes # (Manual) Monocytes # (Manual) Fibrinogen POC ABG pH POC ABG pCO2 POC ABG pO2 Sodium Potassium Chloride Carbon Dioxide BUN Creatinine Glucose POC Glucose 165 H 210 H 139 H Calcium Phosphorus Magnesium C-Reactive Protein Total Protein Albumin Triglycerides HDL Cholesterol Urine WBC (Auto) Urine Creatinine Rheumatoid Factor Complement C4 Crossmatch 09/05/16 09/05/16 09/05/16 04:05 04:05 05:38 WBC RBC Hgb Hct MCV 76 L D MCH 23 L RDW 17.8 H Plt Count Lymph % (Auto) [place] # Seg Neutrophils % Seg Neuts % (Manual) Lymphocytes % (Manual) Seg Neutrophils # Seg Neutrophils # Man Lymphocytes # (Manual) Monocytes # (Manual) Fibrinogen POC ABG pH POC ABG pCO2 POC ABG pO2 Sodium 134 L Potassium Chloride Carbon Dioxide 18 L BUN Creatinine 1.8 H Glucose 192 H POC Glucose 175 H Calcium Phosphorus Magnesium C-Reactive Protein Total Protein Albumin Triglycerides HDL Cholesterol Urine WBC (Auto) Urine Creatinine Rheumatoid Factor Complement C4 Crossmatch 09/05/16 09/05/16 09/05/16 11:38 17:48 23:22 WBC RBC Hgb Hct MCV MCH RDW Plt Count Lymph % (Auto) [place] # Seg Neutrophils % Seg Neuts % (Manual) Lymphocytes % (Manual) Seg Neutrophils # Seg Neutrophils # Man Lymphocytes # (Manual) Monocytes # (Manual) Fibrinogen POC ABG pH POC ABG pCO2 POC ABG pO2 Sodium Potassium Chloride Carbon Dioxide BUN Creatinine Glucose POC Glucose 164 H 186 H 195 H Calcium Phosphorus Magnesium C-Reactive Protein Total Protein Albumin Triglycerides HDL Cholesterol Urine WBC (Auto) Urine Creatinine Rheumatoid Factor Complement C4 Crossmatch 09/06/16 09/06/16 09/06/16 04:12 05:59 07:32 WBC RBC Hgb Hct MCV MCH RDW Plt Count Lymph % (Auto) [place] # Seg Neutrophils % Seg Neuts % (Manual) Lymphocytes % (Manual) Seg Neutrophils # Seg Neutrophils # Man Lymphocytes # (Manual) Monocytes # (Manual) Fibrinogen POC ABG pH 7.514 H POC ABG pCO2 29.1 L POC ABG pO2 72 L Sodium 133 L Potassium 3.4 L Chloride 94.9 L Carbon Dioxide 19 L BUN 30 H Creatinine 2.1 H Glucose 139 H POC Glucose 146 H Calcium Phosphorus Magnesium C-Reactive Protein Total Protein Albumin Triglycerides HDL Cholesterol Urine WBC (Auto) Urine Creatinine Rheumatoid Factor Complement C4 Crossmatch 09/06/16 09/06/16 09/06/16 11:57 17:58 19:02 WBC RBC Hgb Hct MCV MCH RDW Plt Count Lymph % (Auto) [place] # Seg Neutrophils % Seg Neuts % (Manual) Lymphocytes % (Manual) Seg Neutrophils # Seg Neutrophils # Man Lymphocytes # (Manual) Monocytes # (Manual) Fibrinogen POC ABG pH 7.465 H POC ABG pCO2 32.0 L POC ABG pO2 Sodium Potassium Chloride Carbon Dioxide BUN Creatinine Glucose POC Glucose 165 H 160 H Calcium Phosphorus Magnesium C-Reactive Protein Total Protein Albumin Triglycerides HDL Cholesterol Urine WBC (Auto) Urine Creatinine Rheumatoid Factor Complement C4 Crossmatch 09/06/16 09/07/16 09/07/16 23:45 02:47 02:47 WBC RBC Hgb Hct MCV MCH RDW Plt Count Lymph % (Auto) [place] # Seg Neutrophils % Seg Neuts % (Manual) Lymphocytes % (Manual) Seg Neutrophils # Seg Neutrophils # Man Lymphocytes # (Manual) Monocytes # (Manual) Fibrinogen POC ABG pH POC ABG pCO2 POC ABG pO2 Sodium Potassium Chloride Carbon Dioxide BUN Creatinine Glucose POC Glucose 204 H Calcium Phosphorus Magnesium C-Reactive Protein Total Protein Albumin Triglycerides HDL Cholesterol Urine WBC (Auto) 68.0 H Urine Creatinine 106.1 H Rheumatoid Factor Complement C4 Crossmatch 09/07/16 09/07/16 09/07/16 04:50 06:19 06:39 WBC RBC Hgb Hct MCV MCH RDW Plt Count Lymph % (Auto) [place] # Seg Neutrophils % Seg Neuts % (Manual) Lymphocytes % (Manual) Seg Neutrophils # Seg Neutrophils # Man Lymphocytes # (Manual) Monocytes # (Manual) Fibrinogen POC ABG pH 7.457 H POC ABG pCO2 32.1 L POC ABG pO2 76 L Sodium 132 L Potassium Chloride 94.7 L Carbon Dioxide BUN 53 H Creatinine 2.9 H Glucose 151 H POC Glucose 149 H Calcium Phosphorus Magnesium C-Reactive Protein Total Protein Albumin Triglycerides HDL Cholesterol Urine WBC (Auto) Urine Creatinine Rheumatoid Factor Complement C4 Crossmatch 09/07/16 09/07/16 09/07/16 09:20 11:43 11:43 WBC 19.4 H RBC Hgb 8.3 L Hct 26.4 L D MCV 72 L D MCH 22 L RDW 17.9 H Plt Count Lymph % (Auto) 8.5 L [place] # 1.0 H Seg Neutrophils % 85.8 H Seg Neuts % (Manual) Lymphocytes % (Manual) Seg Neutrophils # 16.6 H Seg Neutrophils # Man Lymphocytes # (Manual) Monocytes # (Manual) Fibrinogen POC ABG pH POC ABG pCO2 POC ABG pO2 Sodium 134 L Potassium Chloride 97.2 L Carbon Dioxide 20 L BUN 58 H Creatinine 2.9 H Glucose 147 H POC Glucose Calcium Phosphorus 2.40 L Magnesium 2.40 H C-Reactive Protein Total Protein 5.8 L Albumin 2.2 L Triglycerides HDL Cholesterol Urine WBC (Auto) Urine Creatinine Rheumatoid Factor Complement C4 58 H Crossmatch 09/07/16 09/07/16 09/07/16 11:50 16:00 17:31 WBC RBC Hgb Hct MCV MCH RDW Plt Count Lymph % (Auto) [place] # Seg Neutrophils % Seg Neuts % (Manual) Lymphocytes % (Manual) Seg Neutrophils # Seg Neutrophils # Man Lymphocytes # (Manual) Monocytes # (Manual) Fibrinogen POC ABG pH POC ABG pCO2 POC ABG pO2 158 H Sodium Potassium Chloride Carbon Dioxide BUN Creatinine Glucose POC Glucose 175 H Calcium Phosphorus Magnesium C-Reactive Protein Total Protein Albumin Triglycerides HDL Cholesterol Urine WBC (Auto) Urine Creatinine 66.3 H Rheumatoid Factor Complement C4 Crossmatch 09/07/16 09/08/16 09/08/16 23:50 05:46 06:18 WBC 17.8 H RBC 3.58 L Hgb 8.1 L Hct 25.5 L MCV 71 L MCH 23 L RDW 18.4 H Plt Count Lymph % (Auto) [place] # Seg Neutrophils % Seg Neuts % (Manual) 92.0 H Lymphocytes % (Manual) 6.0 L Seg Neutrophils # Seg Neutrophils # Man 16.4 H Lymphocytes # (Manual) 1.1 L Monocytes # (Manual) Fibrinogen POC ABG pH POC ABG pCO2 34.3 L POC ABG pO2 71 L Sodium Potassium Chloride Carbon Dioxide BUN Creatinine Glucose POC Glucose 216 H Calcium Phosphorus Magnesium C-Reactive Protein Total Protein Albumin Triglycerides HDL Cholesterol Urine WBC (Auto) Urine Creatinine Rheumatoid Factor Complement C4 Crossmatch 09/08/16 09/08/16 09/08/16 06:18 06:51 10:55 WBC RBC Hgb Hct MCV MCH RDW Plt Count Lymph % (Auto) [place] # Seg Neutrophils % Seg Neuts % (Manual) Lymphocytes % (Manual) Seg Neutrophils # Seg Neutrophils # Man Lymphocytes # (Manual) Monocytes # (Manual) Fibrinogen POC ABG pH POC ABG pCO2 POC ABG pO2 Sodium 133 L Potassium Chloride 96.9 L Carbon Dioxide 20 L BUN 63 H Creatinine 2.7 H Glucose 195 H POC Glucose 204 H 169 H Calcium Phosphorus Magnesium C-Reactive Protein Total Protein Albumin Triglycerides HDL Cholesterol Urine WBC (Auto) Urine Creatinine Rheumatoid Factor Complement C4 Crossmatch 09/08/16 09/08/16 09/08/16 11:48 11:48 11:48 WBC RBC Hgb Hct MCV MCH RDW Plt Count Lymph % (Auto) [place] # Seg Neutrophils % Seg Neuts % (Manual) Lymphocytes % (Manual) Seg Neutrophils # Seg Neutrophils # Man Lymphocytes # (Manual) Monocytes # (Manual) Fibrinogen 750 H POC ABG pH POC ABG pCO2 POC ABG pO2 Sodium Potassium Chloride Carbon Dioxide BUN Creatinine Glucose POC Glucose Calcium Phosphorus Magnesium C-Reactive Protein 15.70 H Total Protein Albumin Triglycerides HDL Cholesterol Urine WBC (Auto) Urine Creatinine Rheumatoid Factor 24 H Complement C4 Crossmatch 09/08/16 09/09/16 09/09/16 18:25 00:24 03:00 WBC 27.9 H RBC Hgb 8.7 L Hct 28.1 L MCV 72 L MCH 22 L RDW 18.4 H Plt Count 485 H Lymph % (Auto) [place] # Seg Neutrophils % Seg Neuts % (Manual) 77.0 H Lymphocytes % (Manual) 9.0 L Seg Neutrophils # Seg Neutrophils # Man 21.5 H Lymphocytes # (Manual) Monocytes # (Manual) 2.0 H Fibrinogen POC ABG pH POC ABG pCO2 POC ABG pO2 Sodium Potassium Chloride Carbon Dioxide BUN Creatinine Glucose POC Glucose 184 H 216 H Calcium Phosphorus Magnesium C-Reactive Protein Total Protein Albumin Triglycerides HDL Cholesterol Urine WBC (Auto) Urine Creatinine Rheumatoid Factor Complement C4 Crossmatch 09/09/16 09/09/16 09/09/16 03:00 04:04 05:41 WBC RBC Hgb Hct MCV MCH RDW Plt Count Lymph % (Auto) [place] # Seg Neutrophils % Seg Neuts % (Manual) Lymphocytes % (Manual) Seg Neutrophils # Seg Neutrophils # Man Lymphocytes # (Manual) Monocytes # (Manual) Fibrinogen POC ABG pH POC ABG pCO2 POC ABG pO2 121 H Sodium 135 L Potassium Chloride 96.3 L Carbon Dioxide 21 L BUN 83 H Creatinine 3.0 H Glucose 135 H POC Glucose 155 H Calcium Phosphorus Magnesium C-Reactive Protein Total Protein Albumin Triglycerides HDL Cholesterol Urine WBC (Auto) Urine Creatinine Rheumatoid Factor Complement C4 Crossmatch 09/09/16 09/09/16 09/09/16 11:55 14:13 17:33 WBC RBC Hgb Hct MCV MCH RDW Plt Count Lymph % (Auto) [place] # Seg Neutrophils % Seg Neuts % (Manual) Lymphocytes % (Manual) Seg Neutrophils # Seg Neutrophils # Man Lymphocytes # (Manual) Monocytes # (Manual) Fibrinogen POC ABG pH POC ABG pCO2 POC ABG pO2 Sodium Potassium Chloride Carbon Dioxide BUN Creatinine Glucose POC Glucose 186 H 211 H Calcium Phosphorus Magnesium C-Reactive Protein Total Protein Albumin Triglycerides HDL Cholesterol Urine WBC (Auto) 25.0 H Urine Creatinine Rheumatoid Factor Complement C4 Crossmatch 09/09/16 09/10/16 09/10/16 23:13 05:09 05:17 WBC 15.8 H RBC 3.25 L Hgb 7.3 L Hct 22.9 L MCV 71 L MCH 23 L RDW 18.4 H Plt Count Lymph % (Auto) [place] # Seg Neutrophils % Seg Neuts % (Manual) 91.0 H Lymphocytes % (Manual) 4.0 L Seg Neutrophils # Seg Neutrophils # Man 14.4 H Lymphocytes # (Manual) 0.6 L Monocytes # (Manual) Fibrinogen POC ABG pH POC ABG pCO2 POC ABG pO2 74 L Sodium Potassium Chloride Carbon Dioxide BUN Creatinine Glucose POC Glucose 215 H Calcium Phosphorus Magnesium C-Reactive Protein Total Protein Albumin Triglycerides HDL Cholesterol Urine WBC (Auto) Urine Creatinine Rheumatoid Factor Complement C4 Crossmatch 09/10/16 09/10/16 09/10/16 05:17 11:31 13:17 WBC RBC Hgb Hct MCV MCH RDW Plt Count Lymph % (Auto) [place] # Seg Neutrophils % Seg Neuts % (Manual) Lymphocytes % (Manual) Seg Neutrophils # Seg Neutrophils # Man Lymphocytes # (Manual) Monocytes # (Manual) Fibrinogen POC ABG pH POC ABG pCO2 POC ABG pO2 Sodium Potassium Chloride Carbon Dioxide 21 L BUN 93 H Creatinine 2.9 H Glucose 146 H POC Glucose 188 H Calcium 8.1 L Phosphorus Magnesium C-Reactive Protein Total Protein Albumin Triglycerides HDL Cholesterol Urine WBC (Auto) Urine Creatinine Rheumatoid Factor Complement C4 Crossmatch See Detail 09/10/16 09/10/16 09/11/16 17:20 23:32 05:10 WBC 28.4 H RBC Hgb 9.2 L Hct 29.3 L D MCV 73 L MCH 23 L RDW 18.9 H Plt Count 452 H Lymph % (Auto) [place] # Seg Neutrophils % Seg Neuts % (Manual) 89.5 H Lymphocytes % (Manual) 2.0 L Seg Neutrophils # Seg Neutrophils # Man 25.4 H Lymphocytes # (Manual) 0.6 L Monocytes # (Manual) 1.3 H Fibrinogen POC ABG pH POC ABG pCO2 POC ABG pO2 Sodium Potassium Chloride Carbon Dioxide BUN Creatinine Glucose POC Glucose 199 H 186 H Calcium Phosphorus Magnesium C-Reactive Protein Total Protein Albumin Triglycerides HDL Cholesterol Urine WBC (Auto) Urine Creatinine Rheumatoid Factor Complement C4 Crossmatch 09/11/16 09/11/16 09/11/16 05:10 05:17 05:55 WBC RBC Hgb Hct MCV MCH RDW Plt Count Lymph % (Auto) [place] # Seg Neutrophils % Seg Neuts % (Manual) Lymphocytes % (Manual) Seg Neutrophils # Seg Neutrophils # Man Lymphocytes # (Manual) Monocytes # (Manual) Fibrinogen POC ABG pH POC ABG pCO2 33.8 L POC ABG pO2 Sodium 136 L Potassium Chloride Carbon Dioxide 18 L BUN 107 H Creatinine 2.6 H Glucose 187 H POC Glucose 230 H Calcium 8.3 L Phosphorus Magnesium C-Reactive Protein Total Protein Albumin Triglycerides HDL Cholesterol Urine WBC (Auto) Urine Creatinine Rheumatoid Factor Complement C4 Crossmatch 09/11/16 09/11/16 09/11/16 12:02 17:32 23:52 WBC RBC Hgb Hct MCV MCH RDW Plt Count Lymph % (Auto) [place] # Seg Neutrophils % Seg Neuts % (Manual) Lymphocytes % (Manual) Seg Neutrophils # Seg Neutrophils # Man Lymphocytes # (Manual) Monocytes # (Manual) Fibrinogen POC ABG pH POC ABG pCO2 POC ABG pO2 Sodium Potassium Chloride Carbon Dioxide BUN Creatinine Glucose POC Glucose 191 H 239 H 265 H Calcium Phosphorus Magnesium C-Reactive Protein Total Protein Albumin Triglycerides HDL Cholesterol Urine WBC (Auto) Urine Creatinine Rheumatoid Factor Complement C4 Crossmatch 09/12/16 09/12/16 09/12/16 05:09 05:32 06:45 WBC 31.7 H RBC 3.54 L Hgb 8.3 L Hct 25.9 L MCV 73 L MCH 23 L RDW 18.9 H Plt Count Lymph % (Auto) [place] # Seg Neutrophils % Seg Neuts % (Manual) 88.5 H Lymphocytes % (Manual) 4.5 L Seg Neutrophils # Seg Neutrophils # Man 28.1 H Lymphocytes # (Manual) Monocytes # (Manual) 1.0 H Fibrinogen POC ABG pH POC ABG pCO2 34.6 L POC ABG pO2 Sodium Potassium Chloride Carbon Dioxide BUN Creatinine Glucose POC Glucose 184 H Calcium Phosphorus Magnesium C-Reactive Protein Total Protein Albumin Triglycerides HDL Cholesterol Urine WBC (Auto) Urine Creatinine Rheumatoid Factor Complement C4 Crossmatch 09/12/16 09/12/16 06:45 07:22 WBC RBC Hgb Hct MCV MCH RDW Plt Count Lymph % (Auto) [place] # Seg Neutrophils % Seg Neuts % (Manual) Lymphocytes % (Manual) Seg Neutrophils # Seg Neutrophils # Man Lymphocytes # (Manual) Monocytes # (Manual) Fibrinogen POC ABG pH POC ABG pCO2 POC ABG pO2 Sodium Potassium Chloride Carbon Dioxide 20 L BUN 115 H Creatinine 2.7 H Glucose 165 H POC Glucose Calcium 8.0 L Phosphorus Magnesium C-Reactive Protein Total Protein Albumin Triglycerides 217 H HDL Cholesterol Urine WBC (Auto) Urine Creatinine Rheumatoid Factor Complement C4 Crossmatch Chest x-ray: image reviewed Allied health notes reviewed: RT
--- NOTE | 2016-09-12 11:01 | Progress Note ---
Assessment and Plan 46 YO F Hx Dm2/HTN/asthma/CKD/anxiety last well 09/02 @ 11:40 PM p/w eyes open, R facial droop and ? aphasia but then in CT pt laughing w/o facial droop. Tele neuro NIHSS 8. Her BP was 200s/100s and eventually family consented to tPA after initial declining but tpa infusion stopped after 5 mins d/t refractory HTN. Since then she has been in ICU intubated and agitated requiring sedation. On exam pt w/ depressed level of arousal, poor concentration, paucity of speech not following commands and withdraws from pain less briskly on R hemibody. CTH on admit chronic L thalamic ? lacune and L > R ? gliosis but poor image. f/u CTH 09/07 reveals large L MCA superior and inferior division infarct but no ICH or midline shift/compression of brain structures. UDS + Methadone/Barbs/THC. CDs neg. TTE neg.LDL 126. TSH/Nh4 neg. f/u CTH 09/08 continued evolution but no midline shift or ICH. MRI Brain 09/08 reveals multifocal stroke L MCA & L MCA/ [employer]PER[employer]OR watershed and also R > L cerebellum w/ 2 mm midlin shift. MRA Head confirms L M2/M3 occlusion. PRINCE neg. f/u CTH 09/11 stable Plan and Recommendation: 1. Telemetry bed w/ Q4 hour neuro checks 2. 30 day ambulatory Tele monitor ? pAFib 3. Stroke in [place] Eval: ESR/CRP, Coags, RPR/VDRL, If Febrile-BCx, LP; Hypercoag screen-Protein C Activity, Protein S Ag, Antithrombin III, Activated Protein C resistance, Factor V Leiden, RVVT or APLAbs, Beta-2 GP Ab, Fibrinogen , Prothrombin gene [id number] mutation, MTHFR C677T, TYSON-1, HIV, SAHIL, Lactic Acid, Homocysteine, Cryoglobulin, Complement level, ANCA, Scl-70 Ab, anti-centromere Ab, Anti-Ro (SSA)/Anti-La (SSB), CATHIE, Antiproteinase 3, Lipoprotein A 4. Can lower MAPs by 10-15% daily to reach goal SBP 120-160 as permissive HTN period complete 5. Secondary stroke prevention: ASA 325mg Daily & upgrade to full dose statin therapy (Crestor 20mg or 40mg OR Lipitor 40mg or 80mg Daily OR Zocor 40mg QDay) for goal LDL < 70. No firm indication at this point for therapeutic anticoagulation as pt has not had AFib captured on telemetry monitoring. 6. F/E/N: isotonic IVF prn, prn replete, bedside speech/swallow eval prior to PO intake. Pt will likely need PEG/Trach/LTAC 7. DVT Prophylaxis 8. Stroke education, PT/OT/Speech Therapy consults, CM evaluation 9. For any changes in neurologic status, pls obtain STAT CTH w/o contrast and call neurology animal impersonator Subjective Date of service: 09/12/16 Principal diagnosis: Acute CVA; Acute Encephalopathy Interval history: PRINCE neg. still intubated. Objective - Vital Sign Vital Signs - 12hr 09/11/16 09/11/16 09/12/16 23:30 23:49 00:00 Temperature 99.6 F Pulse Rate 118 H 89 94 H Respiratory 17 18 Rate Respiratory Rate [ Generalized] Blood Pressure 155/85 155/85 126/71 O2 Sat by Pulse 100 100 100 Oximetry 09/12/16 09/12/16 09/12/16 00:30 01:00 01:30 Temperature Pulse Rate 88 91 H 91 H Respiratory 18 18 18 Rate Respiratory Rate [ Generalized] Blood Pressure 129/61 131/72 125/67 O2 Sat by Pulse 100 100 100 Oximetry 09/12/16 09/12/16 09/12/16 02:00 02:30 03:00 Temperature Pulse Rate 80 92 H 118 H Respiratory 17 18 17 Rate Respiratory Rate [ Generalized] Blood Pressure 124/68 139/74 153/89 O2 Sat by Pulse 100 100 100 Oximetry 09/12/16 09/12/16 09/12/16 03:24 03:30 04:00 Temperature 99.8 F H Pulse Rate 99 H 99 H Respiratory 15 19 Rate Respiratory 22 Rate [ Generalized] Blood Pressure 136/74 145/73 O2 Sat by Pulse 100 100 Oximetry 09/12/16 09/12/16 09/12/16 04:30 05:00 05:30 Temperature Pulse Rate 92 H 87 100 H Respiratory 19 18 15 Rate Respiratory Rate [ Generalized] Blood Pressure 128/63 128/64 140/73 O2 Sat by Pulse 100 100 99 Oximetry 09/12/16 09/12/16 09/12/16 05:33 06:00 06:30 Temperature Pulse Rate 115 H 87 87 Respiratory 18 18 Rate Respiratory Rate [ Generalized] Blood Pressure 128/64 132/67 132/64 O2 Sat by Pulse 100 99 97 Oximetry 09/12/16 09/12/16 09/12/16 07:00 07:27 07:31 Temperature Pulse Rate 91 H 101 H 123 H Respiratory 18 17 Rate Respiratory Rate [ Generalized] Blood Pressure 142/70 142/74 166/87 O2 Sat by Pulse 99 99 100 Oximetry 09/12/16 09/12/16 09/12/16 07:51 08:00 08:30 Temperature 98.7 F Pulse Rate 102 H 90 86 Respiratory 18 9 L Rate Respiratory Rate [ Generalized] Blood Pressure 166/67 129/69 123/61 O2 Sat by Pulse 100 98 Oximetry 09/12/16 09/12/16 09/12/16 09:00 09:30 10:00 Temperature Pulse Rate 81 84 137 H Respiratory 18 17 24 Rate Respiratory Rate [ Generalized] Blood Pressure 148/68 134/67 203/109 O2 Sat by Pulse 99 99 100 Oximetry 09/12/16 10:23 Temperature Pulse Rate Respiratory Rate Respiratory Rate [ Generalized] Blood Pressure O2 Sat by Pulse 98 Oximetry - General Apperance Constitutional: uncomfortable, acutely ill - EENT EENT: ATNC, PERRL, mucous membranes dry, hearing intact - Respiratory Respiratory: normal breath sounds, no respiratory distress, decreased breath sounds - Cardiovascular Cardiovascular: regular rate Extremities: no peripheral edema bilat, no clubbing, cyanosis, no inflammation, no ischemia or petechiae - Gastrointestinal Gastrointestinal: normoactive bowel sounds, soft, non-distended - Integumentary Integumentary: normal - Neurologic Cranial nerve examination: PERRL, EOMI, V1/V2/V3 grossly intact, Intact Vestibulo-ocular r, intact corneal reflex, facial droop (on R) Speech examination: other (no speech, not followignc ommands) Motor examination - right side: 2/5: biceps, triceps, wrist flexion, wrist extension, unemployment benefits claims 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, hip flexors, knee extensors, dorsiflexion, toe extension (EHL) , plantarflexion Motor examination - left side: 4/5: biceps, triceps, wrist flexion, wrist extension, unemployment benefits claims taker, hip flexors, knee extensors, dorsiflexion, toe extension (EHL) , plantarflexion Detailed sensory examination: intact, pain - Musculoskeletal Musculoskeletal: no fluid collection, no pain, normal range of motion - Laboratory Findings CBC and BMP: 09/12/16 06:45 09/12/16 06:45 Abnormal Lab Findings: Abnormal Labs 09/03/16 09/03/16 09/03/16 12:12 15:07 16:20 WBC RBC Hgb Hct MCV MCH RDW Plt Count Lymph % (Auto) [place] # Seg Neutrophils % Seg Neuts % (Manual) Lymphocytes % (Manual) Seg Neutrophils # Seg Neutrophils # Man Lymphocytes # (Manual) Monocytes # (Manual) Fibrinogen POC ABG pH 7.452 H POC ABG pCO2 POC ABG pO2 Sodium Potassium Chloride Carbon Dioxide BUN Creatinine Glucose POC Glucose 178 H Calcium Phosphorus 2.20 L Magnesium 1.60 L C-Reactive Protein Total Protein Albumin Triglycerides HDL Cholesterol Urine WBC (Auto) Urine Creatinine Rheumatoid Factor Complement C4 Crossmatch 09/03/16 09/03/16 09/03/16 17:57 17:58 23:50 WBC RBC Hgb Hct MCV MCH RDW Plt Count Lymph % (Auto) [place] # Seg Neutrophils % Seg Neuts % (Manual) Lymphocytes % (Manual) Seg Neutrophils # Seg Neutrophils # Man Lymphocytes # (Manual) Monocytes # (Manual) Fibrinogen POC ABG pH POC ABG pCO2 POC ABG pO2 Sodium Potassium Chloride Carbon Dioxide BUN Creatinine Glucose POC Glucose 162 H 145 H Calcium Phosphorus 2.30 L Magnesium C-Reactive Protein Total Protein Albumin Triglycerides HDL Cholesterol Urine WBC (Auto) Urine Creatinine Rheumatoid Factor Complement C4 Crossmatch 09/04/16 09/04/16 09/04/16 03:31 03:31 05:42 WBC RBC Hgb 9.7 L D Hct MCV 72 L MCH 23 L RDW 17.5 H Plt Count Lymph % (Auto) 11.1 L [place] # Seg Neutrophils % 84.3 H Seg Neuts % (Manual) Lymphocytes % (Manual) Seg Neutrophils # 8.9 H Seg Neutrophils # Man Lymphocytes # (Manual) Monocytes # (Manual) Fibrinogen POC ABG pH POC ABG pCO2 POC ABG pO2 Sodium 135 L Potassium 2.9 L* Chloride 97.2 L Carbon Dioxide 19 L BUN Creatinine 1.7 H Glucose 170 H POC Glucose 152 H Calcium Phosphorus Magnesium C-Reactive Protein Total Protein Albumin Triglycerides 160 H HDL Cholesterol 31 L Urine WBC (Auto) Urine Creatinine Rheumatoid Factor Complement C4 Crossmatch 09/04/16 09/04/16 09/04/16 11:34 17:46 23:29 WBC RBC Hgb Hct MCV MCH RDW Plt Count Lymph % (Auto) [place] # Seg Neutrophils % Seg Neuts % (Manual) Lymphocytes % (Manual) Seg Neutrophils # Seg Neutrophils # Man Lymphocytes # (Manual) Monocytes # (Manual) Fibrinogen POC ABG pH POC ABG pCO2 POC ABG pO2 Sodium Potassium Chloride Carbon Dioxide BUN Creatinine Glucose POC Glucose 165 H 210 H 139 H Calcium Phosphorus Magnesium C-Reactive Protein Total Protein Albumin Triglycerides HDL Cholesterol Urine WBC (Auto) Urine Creatinine Rheumatoid Factor Complement C4 Crossmatch 09/05/16 09/05/16 09/05/16 04:05 04:05 05:38 WBC RBC Hgb Hct MCV 76 L D MCH 23 L RDW 17.8 H Plt Count Lymph % (Auto) [place] # Seg Neutrophils % Seg Neuts % (Manual) Lymphocytes % (Manual) Seg Neutrophils # Seg Neutrophils # Man Lymphocytes # (Manual) Monocytes # (Manual) Fibrinogen POC ABG pH POC ABG pCO2 POC ABG pO2 Sodium 134 L Potassium Chloride Carbon Dioxide 18 L BUN Creatinine 1.8 H Glucose 192 H POC Glucose 175 H Calcium Phosphorus Magnesium C-Reactive Protein Total Protein Albumin Triglycerides HDL Cholesterol Urine WBC (Auto) Urine Creatinine Rheumatoid Factor Complement C4 Crossmatch 09/05/16 09/05/16 09/05/16 11:38 17:48 23:22 WBC RBC Hgb Hct MCV MCH RDW Plt Count Lymph % (Auto) [place] # Seg Neutrophils % Seg Neuts % (Manual) Lymphocytes % (Manual) Seg Neutrophils # Seg Neutrophils # Man Lymphocytes # (Manual) Monocytes # (Manual) Fibrinogen POC ABG pH POC ABG pCO2 POC ABG pO2 Sodium Potassium Chloride Carbon Dioxide BUN Creatinine Glucose POC Glucose 164 H 186 H 195 H Calcium Phosphorus Magnesium C-Reactive Protein Total Protein Albumin Triglycerides HDL Cholesterol Urine WBC (Auto) Urine Creatinine Rheumatoid Factor Complement C4 Crossmatch 09/06/16 09/06/16 09/06/16 04:12 05:59 07:32 WBC RBC Hgb Hct MCV MCH RDW Plt Count Lymph % (Auto) [place] # Seg Neutrophils % Seg Neuts % (Manual) Lymphocytes % (Manual) Seg Neutrophils # Seg Neutrophils # Man Lymphocytes # (Manual) Monocytes # (Manual) Fibrinogen POC ABG pH 7.514 H POC ABG pCO2 29.1 L POC ABG pO2 72 L Sodium 133 L Potassium 3.4 L Chloride 94.9 L Carbon Dioxide 19 L BUN 30 H Creatinine 2.1 H Glucose 139 H POC Glucose 146 H Calcium Phosphorus Magnesium C-Reactive Protein Total Protein Albumin Triglycerides HDL Cholesterol Urine WBC (Auto) Urine Creatinine Rheumatoid Factor Complement C4 Crossmatch 09/06/16 09/06/16 09/06/16 11:57 17:58 19:02 WBC RBC Hgb Hct MCV MCH RDW Plt Count Lymph % (Auto) [place] # Seg Neutrophils % Seg Neuts % (Manual) Lymphocytes % (Manual) Seg Neutrophils # Seg Neutrophils # Man Lymphocytes # (Manual) Monocytes # (Manual) Fibrinogen POC ABG pH 7.465 H POC ABG pCO2 32.0 L POC ABG pO2 Sodium Potassium Chloride Carbon Dioxide BUN Creatinine Glucose POC Glucose 165 H 160 H Calcium Phosphorus Magnesium C-Reactive Protein Total Protein Albumin Triglycerides HDL Cholesterol Urine WBC (Auto) Urine Creatinine Rheumatoid Factor Complement C4 Crossmatch 09/06/16 09/07/16 09/07/16 23:45 02:47 02:47 WBC RBC Hgb Hct MCV MCH RDW Plt Count Lymph % (Auto) [place] # Seg Neutrophils % Seg Neuts % (Manual) Lymphocytes % (Manual) Seg Neutrophils # Seg Neutrophils # Man Lymphocytes # (Manual) Monocytes # (Manual) Fibrinogen POC ABG pH POC ABG pCO2 POC ABG pO2 Sodium Potassium Chloride Carbon Dioxide BUN Creatinine Glucose POC Glucose 204 H Calcium Phosphorus Magnesium C-Reactive Protein Total Protein Albumin Triglycerides HDL Cholesterol Urine WBC (Auto) 68.0 H Urine Creatinine 106.1 H Rheumatoid Factor Complement C4 Crossmatch 09/07/16 09/07/16 09/07/16 04:50 06:19 06:39 WBC RBC Hgb Hct MCV MCH RDW Plt Count Lymph % (Auto) [place] # Seg Neutrophils % Seg Neuts % (Manual) Lymphocytes % (Manual) Seg Neutrophils # Seg Neutrophils # Man Lymphocytes # (Manual) Monocytes # (Manual) Fibrinogen POC ABG pH 7.457 H POC ABG pCO2 32.1 L POC ABG pO2 76 L Sodium 132 L Potassium Chloride 94.7 L Carbon Dioxide BUN 53 H Creatinine 2.9 H Glucose 151 H POC Glucose 149 H Calcium Phosphorus Magnesium C-Reactive Protein Total Protein Albumin Triglycerides HDL Cholesterol Urine WBC (Auto) Urine Creatinine Rheumatoid Factor Complement C4 Crossmatch 09/07/16 09/07/16 09/07/16 09:20 11:43 11:43 WBC 19.4 H RBC Hgb 8.3 L Hct 26.4 L D MCV 72 L D MCH 22 L RDW 17.9 H Plt Count Lymph % (Auto) 8.5 L [place] # 1.0 H Seg Neutrophils % 85.8 H Seg Neuts % (Manual) Lymphocytes % (Manual) Seg Neutrophils # 16.6 H Seg Neutrophils # Man Lymphocytes # (Manual) Monocytes # (Manual) Fibrinogen POC ABG pH POC ABG pCO2 POC ABG pO2 Sodium 134 L Potassium Chloride 97.2 L Carbon Dioxide 20 L BUN 58 H Creatinine 2.9 H Glucose 147 H POC Glucose Calcium Phosphorus 2.40 L Magnesium 2.40 H C-Reactive Protein Total Protein 5.8 L Albumin 2.2 L Triglycerides HDL Cholesterol Urine WBC (Auto) Urine Creatinine Rheumatoid Factor Complement C4 58 H Crossmatch 09/07/16 09/07/16 09/07/16 11:50 16:00 17:31 WBC RBC Hgb Hct MCV MCH RDW Plt Count Lymph % (Auto) [place] # Seg Neutrophils % Seg Neuts % (Manual) Lymphocytes % (Manual) Seg Neutrophils # Seg Neutrophils # Man Lymphocytes # (Manual) Monocytes # (Manual) Fibrinogen POC ABG pH POC ABG pCO2 POC ABG pO2 158 H Sodium Potassium Chloride Carbon Dioxide BUN Creatinine Glucose POC Glucose 175 H Calcium Phosphorus Magnesium C-Reactive Protein Total Protein Albumin Triglycerides HDL Cholesterol Urine WBC (Auto) Urine Creatinine 66.3 H Rheumatoid Factor Complement C4 Crossmatch 09/07/16 09/08/16 09/08/16 23:50 05:46 06:18 WBC 17.8 H RBC 3.58 L Hgb 8.1 L Hct 25.5 L MCV 71 L MCH 23 L RDW 18.4 H Plt Count Lymph % (Auto) [place] # Seg Neutrophils % Seg Neuts % (Manual) 92.0 H Lymphocytes % (Manual) 6.0 L Seg Neutrophils # Seg Neutrophils # Man 16.4 H Lymphocytes # (Manual) 1.1 L Monocytes # (Manual) Fibrinogen POC ABG pH POC ABG pCO2 34.3 L POC ABG pO2 71 L Sodium Potassium Chloride Carbon Dioxide BUN Creatinine Glucose POC Glucose 216 H Calcium Phosphorus Magnesium C-Reactive Protein Total Protein Albumin Triglycerides HDL Cholesterol Urine WBC (Auto) Urine Creatinine Rheumatoid Factor Complement C4 Crossmatch 09/08/16 09/08/16 09/08/16 06:18 06:51 10:55 WBC RBC Hgb Hct MCV MCH RDW Plt Count Lymph % (Auto) [place] # Seg Neutrophils % Seg Neuts % (Manual) Lymphocytes % (Manual) Seg Neutrophils # Seg Neutrophils # Man Lymphocytes # (Manual) Monocytes # (Manual) Fibrinogen POC ABG pH POC ABG pCO2 POC ABG pO2 Sodium 133 L Potassium Chloride 96.9 L Carbon Dioxide 20 L BUN 63 H Creatinine 2.7 H Glucose 195 H POC Glucose 204 H 169 H Calcium Phosphorus Magnesium C-Reactive Protein Total Protein Albumin Triglycerides HDL Cholesterol Urine WBC (Auto) Urine Creatinine Rheumatoid Factor Complement C4 Crossmatch 09/08/16 09/08/16 09/08/16 11:48 11:48 11:48 WBC RBC Hgb Hct MCV MCH RDW Plt Count Lymph % (Auto) [place] # Seg Neutrophils % Seg Neuts % (Manual) Lymphocytes % (Manual) Seg Neutrophils # Seg Neutrophils # Man Lymphocytes # (Manual) Monocytes # (Manual) Fibrinogen 750 H POC ABG pH POC ABG pCO2 POC ABG pO2 Sodium Potassium Chloride Carbon Dioxide BUN Creatinine Glucose POC Glucose Calcium Phosphorus Magnesium C-Reactive Protein 15.70 H Total Protein Albumin Triglycerides HDL Cholesterol Urine WBC (Auto) Urine Creatinine Rheumatoid Factor 24 H Complement C4 Crossmatch 09/08/16 09/09/16 09/09/16 18:25 00:24 03:00 WBC 27.9 H RBC Hgb 8.7 L Hct 28.1 L MCV 72 L MCH 22 L RDW 18.4 H Plt Count 485 H Lymph % (Auto) [place] # Seg Neutrophils % Seg Neuts % (Manual) 77.0 H Lymphocytes % (Manual) 9.0 L Seg Neutrophils # Seg Neutrophils # Man 21.5 H Lymphocytes # (Manual) Monocytes # (Manual) 2.0 H Fibrinogen POC ABG pH POC ABG pCO2 POC ABG pO2 Sodium Potassium Chloride Carbon Dioxide BUN Creatinine Glucose POC Glucose 184 H 216 H Calcium Phosphorus Magnesium C-Reactive Protein Total Protein Albumin Triglycerides HDL Cholesterol Urine WBC (Auto) Urine Creatinine Rheumatoid Factor Complement C4 Crossmatch 09/09/16 09/09/16 09/09/16 03:00 04:04 05:41 WBC RBC Hgb Hct MCV MCH RDW Plt Count Lymph % (Auto) [place] # Seg Neutrophils % Seg Neuts % (Manual) Lymphocytes % (Manual) Seg Neutrophils # Seg Neutrophils # Man Lymphocytes # (Manual) Monocytes # (Manual) Fibrinogen POC ABG pH POC ABG pCO2 POC ABG pO2 121 H Sodium 135 L Potassium Chloride 96.3 L Carbon Dioxide 21 L BUN 83 H Creatinine 3.0 H Glucose 135 H POC Glucose 155 H Calcium Phosphorus Magnesium C-Reactive Protein Total Protein Albumin Triglycerides HDL Cholesterol Urine WBC (Auto) Urine Creatinine Rheumatoid Factor Complement C4 Crossmatch 09/09/16 09/09/16 09/09/16 11:55 14:13 17:33 WBC RBC Hgb Hct MCV MCH RDW Plt Count Lymph % (Auto) [place] # Seg Neutrophils % Seg Neuts % (Manual) Lymphocytes % (Manual) Seg Neutrophils # Seg Neutrophils # Man Lymphocytes # (Manual) Monocytes # (Manual) Fibrinogen POC ABG pH POC ABG pCO2 POC ABG pO2 Sodium Potassium Chloride Carbon Dioxide BUN Creatinine Glucose POC Glucose 186 H 211 H Calcium Phosphorus Magnesium C-Reactive Protein Total Protein Albumin Triglycerides HDL Cholesterol Urine WBC (Auto) 25.0 H Urine Creatinine Rheumatoid Factor Complement C4 Crossmatch 09/09/16 09/10/16 09/10/16 23:13 05:09 05:17 WBC 15.8 H RBC 3.25 L Hgb 7.3 L Hct 22.9 L MCV 71 L MCH 23 L RDW 18.4 H Plt Count Lymph % (Auto) [place] # Seg Neutrophils % Seg Neuts % (Manual) 91.0 H Lymphocytes % (Manual) 4.0 L Seg Neutrophils # Seg Neutrophils # Man 14.4 H Lymphocytes # (Manual) 0.6 L Monocytes # (Manual) Fibrinogen POC ABG pH POC ABG pCO2 POC ABG pO2 74 L Sodium Potassium Chloride Carbon Dioxide BUN Creatinine Glucose POC Glucose 215 H Calcium Phosphorus Magnesium C-Reactive Protein Total Protein Albumin Triglycerides HDL Cholesterol Urine WBC (Auto) Urine Creatinine Rheumatoid Factor Complement C4 Crossmatch 09/10/16 09/10/16 09/10/16 05:17 11:31 13:17 WBC RBC Hgb Hct MCV MCH RDW Plt Count Lymph % (Auto) [place] # Seg Neutrophils % Seg Neuts % (Manual) Lymphocytes % (Manual) Seg Neutrophils # Seg Neutrophils # Man Lymphocytes # (Manual) Monocytes # (Manual) Fibrinogen POC ABG pH POC ABG pCO2 POC ABG pO2 Sodium Potassium Chloride Carbon Dioxide 21 L BUN 93 H Creatinine 2.9 H Glucose 146 H POC Glucose 188 H Calcium 8.1 L Phosphorus Magnesium C-Reactive Protein Total Protein Albumin Triglycerides HDL Cholesterol Urine WBC (Auto) Urine Creatinine Rheumatoid Factor Complement C4 Crossmatch See Detail 09/10/16 09/10/16 09/11/16 17:20 23:32 05:10 WBC 28.4 H RBC Hgb 9.2 L Hct 29.3 L D MCV 73 L MCH 23 L RDW 18.9 H Plt Count 452 H Lymph % (Auto) [place] # Seg Neutrophils % Seg Neuts % (Manual) 89.5 H Lymphocytes % (Manual) 2.0 L Seg Neutrophils # Seg Neutrophils # Man 25.4 H Lymphocytes # (Manual) 0.6 L Monocytes # (Manual) 1.3 H Fibrinogen POC ABG pH POC ABG pCO2 POC ABG pO2 Sodium Potassium Chloride Carbon Dioxide BUN Creatinine Glucose POC Glucose 199 H 186 H Calcium Phosphorus Magnesium C-Reactive Protein Total Protein Albumin Triglycerides HDL Cholesterol Urine WBC (Auto) Urine Creatinine Rheumatoid Factor Complement C4 Crossmatch 09/11/16 09/11/16 09/11/16 05:10 05:17 05:55 WBC RBC Hgb Hct MCV MCH RDW Plt Count Lymph % (Auto) [place] # Seg Neutrophils % Seg Neuts % (Manual) Lymphocytes % (Manual) Seg Neutrophils # Seg Neutrophils # Man Lymphocytes # (Manual) Monocytes # (Manual) Fibrinogen POC ABG pH POC ABG pCO2 33.8 L POC ABG pO2 Sodium 136 L Potassium Chloride Carbon Dioxide 18 L BUN 107 H Creatinine 2.6 H Glucose 187 H POC Glucose 230 H Calcium 8.3 L Phosphorus Magnesium C-Reactive Protein Total Protein Albumin Triglycerides HDL Cholesterol Urine WBC (Auto) Urine Creatinine Rheumatoid Factor Complement C4 Crossmatch 09/11/16 09/11/16 09/11/16 12:02 17:32 23:52 WBC RBC Hgb Hct MCV MCH RDW Plt Count Lymph % (Auto) [place] # Seg Neutrophils % Seg Neuts % (Manual) Lymphocytes % (Manual) Seg Neutrophils # Seg Neutrophils # Man Lymphocytes # (Manual) Monocytes # (Manual) Fibrinogen POC ABG pH POC ABG pCO2 POC ABG pO2 Sodium Potassium Chloride Carbon Dioxide BUN Creatinine Glucose POC Glucose 191 H 239 H 265 H Calcium Phosphorus Magnesium C-Reactive Protein Total Protein Albumin Triglycerides HDL Cholesterol Urine WBC (Auto) Urine Creatinine Rheumatoid Factor Complement C4 Crossmatch 09/12/16 09/12/16 09/12/16 05:09 05:32 06:45 WBC 31.7 H RBC 3.54 L Hgb 8.3 L Hct 25.9 L MCV 73 L MCH 23 L RDW 18.9 H Plt Count Lymph % (Auto) [place] # Seg Neutrophils % Seg Neuts % (Manual) 88.5 H Lymphocytes % (Manual) 4.5 L Seg Neutrophils # Seg Neutrophils # Man 28.1 H Lymphocytes # (Manual) Monocytes # (Manual) 1.0 H Fibrinogen POC ABG pH POC ABG pCO2 34.6 L POC ABG pO2 Sodium Potassium Chloride Carbon Dioxide BUN Creatinine Glucose POC Glucose 184 H Calcium Phosphorus Magnesium C-Reactive Protein Total Protein Albumin Triglycerides HDL Cholesterol Urine WBC (Auto) Urine Creatinine Rheumatoid Factor Complement C4 Crossmatch 09/12/16 09/12/16 06:45 07:22 WBC RBC Hgb Hct MCV MCH RDW Plt Count Lymph % (Auto) [place] # Seg Neutrophils % Seg Neuts % (Manual) Lymphocytes % (Manual) Seg Neutrophils # Seg Neutrophils # Man Lymphocytes # (Manual) Monocytes # (Manual) Fibrinogen POC ABG pH POC ABG pCO2 POC ABG pO2 Sodium Potassium Chloride Carbon Dioxide 20 L BUN 115 H Creatinine 2.7 H Glucose 165 H POC Glucose Calcium 8.0 L Phosphorus Magnesium C-Reactive Protein Total Protein Albumin Triglycerides 217 H HDL Cholesterol Urine WBC (Auto) Urine Creatinine Rheumatoid Factor Complement C4 Crossmatch
[2016-09-12] MEDS: LEVAQUIN 750MG/150ML 750 MG/150 ML BAG IV SCH (12:40)
[2016-09-12 13:40] LABS: Protein S, Free 97 % normal (50-147); Protein S, Total 109 % (70-140)
[2016-09-12] MEDS: LEVEMIR (NF) SUB-Q SCH (14:04)
[2016-09-12] MEDS: APRESOLINE PO SCH ×2 (14:05→22:14)
--- NOTE | 2016-09-12 15:10 | Progress Note ---
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 C. difficile negative, continue to monitor --2 diabetes mellitus; Accu-Chek sliding scale coverage and ADA diet and insulin as needed -- anemia requiring blood transfusion, closely monitor H&H and transfuse as needed --Moderate to severe protein calorie malnutrition with albumin of 2.2 Nutritional supplements, tube feeding, supportive care --DVT prophylaxis with heparin --Full CODE STATUS Consults and recommendations noted and appreciated Closely monitor the patient and adjust the management as needed Plan of care discussed with the patient's nurse Critical Care time 32 minutes The high probability of a clinically significant, sudden or life threatening deterioration of the [cardiovascular, pulmonary, infectious, renal and neurological] system(s) required my full and direct attention, intervention and personal management. The aggregate critical care time was [32] minutes. This time is in addition to time spent performing reported procedures but includes the following: [] Data Review and interpretation [] Patient assessment and monitoring of vital signs [] Documentation [] Medication orders and management History Interval history: Patient seen and examined medical records reviewed No new events reported by the nursing staff Patient remains intubated on ventilatory support Not in acute distress, vitals reviewed Hospitalist Physical - Constitutional Vitals: Temp Pulse Resp BP Pulse Ox 98.7 F 83 18 138/73 100 09/12/16 08:00 09/12/16 14:30 09/12/16 14:30 09/12/16 14:30 09/12/16 14:30 General appearance: Present: no acute distress, other (orally intubated and sedated) - EENT Eyes: Present: PERRL, EOM intact - Neck Neck: Present: supple, normal ROM, other (ET tube and Dobbhoff in place) - Respiratory Respiratory effort: normal Respiratory: bilateral: diminished, rhonchi, negative: rales, wheezing - Cardiovascular Rhythm: regular Heart Sounds: Present: S1 & S2 - Extremities Extremities: no ischemia, No edema - Abdominal General gastrointestinal: soft, non-tender, non-distended, normal bowel sounds - Integumentary Integumentary: Present: clear, warm - Psychiatric Psychiatric: other (intubated sedated) - Neurologic Neurologic: other (noncommunicative) Results - Labs CBC & Chem 7: 09/12/16 06:45 09/12/16 06:45 Labs: Laboratory Last Values WBC 31.7 K/mm3 (4.5-11.0) H 09/12/16 06:45 RBC 3.54 M/mm3 (3.65-5.03) L 09/12/16 06:45 Hgb 8.3 gm/dl (10.1-14.3) L 09/12/16 06:45 Hct 25.9 % (30.3-42.9) L 09/12/16 06:45 MCV 73 fl (79-97) L 09/12/16 06:45 MCH 23 pg (28-32) L 09/12/16 06:45 MCHC 32 % (30-34) 09/12/16 06:45 RDW 18.9 % (13.2-15.2) H 09/12/16 06:45 Plt Count 362 K/mm3 (140-440) 09/12/16 06:45 Lymph % (Auto) 8.5 % (13.4-35.0) L 09/07/16 11:43 [place] % (Auto) 5.4 % (0.0-7.3) 09/07/16 11:43 Eos % (Auto) 0.2 % (0.0-4.3) 09/07/16 11:43 Baso % (Auto) 0.1 % (0.0-1.8) 09/07/16 11:43 Lymph # 1.6 K/mm3 (1.2-5.4) 09/07/16 11:43 [place] # 1.0 K/mm3 (0.0-0.8) H 09/07/16 11:43 Eos # 0.0 K/mm3 (0.0-0.4) 09/07/16 11:43 Baso # 0.0 K/mm3 (0.0-0.1) 09/07/16 11:43 Add Manual Diff Complete 09/12/16 06:45 Total Counted 200 09/12/16 06:45 Seg Neutrophils % Tunnel Heading Supervisor 09/08/16 06:18 Seg Neuts % (Manual) 88.5 % (40.0-70.0) H 09/12/16 06:45 Band Neutrophils % 3.0 % 09/12/16 06:45 Lymphocytes % (Manual) 4.5 % (13.4-35.0) L 09/12/16 06:45 Reactive Lymphs % (Man) 0 % 09/12/16 06:45 Monocytes % (Manual) 3.0 % (0.0-7.3) 09/12/16 06:45 Eosinophils % (Manual) 0 % (0.0-4.3) 09/12/16 06:45 Basophils % (Manual) 0 % (0.0-1.8) 09/12/16 06:45 Metamyelocytes % 1.0 % 09/12/16 06:45 Myelocytes % 0 % 09/12/16 06:45 Promyelocytes % 0 % 09/12/16 06:45 Blast Cells % 0 % 09/12/16 06:45 Nucleated RBC % 0.5 % (0.0-0.9) 09/12/16 06:45 Seg Neutrophils # 16.6 K/mm3 (1.8-7.7) H 09/07/16 11:43 Seg Neutrophils # Man 28.1 K/mm3 (1.8-7.7) H 09/12/16 06:45 Band Neutrophils # 1.0 K/mm3 09/12/16 06:45 Lymphocytes # (Manual) 1.4 K/mm3 (1.2-5.4) 09/12/16 06:45 Abs React Lymphs (Man) 0.0 K/mm3 09/12/16 06:45 Monocytes # (Manual) 1.0 K/mm3 (0.0-0.8) H 09/12/16 06:45 Eosinophils # (Manual) 0.0 K/mm3 (0.0-0.4) 09/12/16 06:45 Basophils # (Manual) 0.0 K/mm3 (0.0-0.1) 09/12/16 06:45 Metamyelocytes # 0.3 K/mm3 09/12/16 06:45 Myelocytes # 0.0 K/mm3 09/12/16 06:45 Promyelocytes # 0.0 K/mm3 09/12/16 06:45 Blast Cells # 0.0 K/mm3 09/12/16 06:45 WBC Morphology Not Reportable 09/12/16 06:45 Hypersegmented Neuts Not Reportable 09/12/16 06:45 Hyposegmented Neuts Not Reportable 09/12/16 06:45 Hypogranular Neuts Not Reportable 09/12/16 06:45 Smudge Cells Not Reportable 09/12/16 06:45 Toxic Granulation Not Reportable 09/12/16 06:45 Toxic Vacuolation Not Reportable 09/12/16 06:45 Dohle Bodies Not Reportable 09/12/16 06:45 Pelger-Huet Anomaly Not Reportable 09/12/16 06:45 Jasmina Rods Not Reportable 09/12/16 06:45 Platelet Estimate Consistent w auto 09/12/16 06:45 Clumped Platelets Not Reportable 09/12/16 06:45 Plt Clumps, EDTA Not Reportable 09/12/16 06:45 Large Platelets Not Reportable 09/12/16 06:45 Giant Platelets Not Reportable 09/12/16 06:45 Platelet Satelliting Not Reportable 09/12/16 06:45 Plt Morphology Comment Not Reportable 09/12/16 06:45 RBC Morphology Not Reportable 09/12/16 06:45 Dimorphic RBCs Not Reportable 09/12/16 06:45 Polychromasia Not Reportable 09/12/16 06:45 Hypochromasia 1+ 09/12/16 06:45 Poikilocytosis Not Reportable 09/12/16 06:45 Anisocytosis 2+ 09/12/16 06:45 Microcytosis Not Reportable 09/12/16 06:45 Macrocytosis Not Reportable 09/12/16 06:45 Spherocytes Not Reportable 09/12/16 06:45 Pappenheimer Bodies Not Reportable 09/12/16 06:45 Sickle Cells Not Reportable 09/12/16 06:45 Target Cells Not Reportable 09/12/16 06:45 Tear Drop Cells Not Reportable 09/12/16 06:45 Ovalocytes Not Reportable 09/12/16 06:45 Helmet Cells Not Reportable 09/12/16 06:45 Monet-Supai Bodies Not Reportable 09/12/16 06:45 [place] Rings Not Reportable 09/12/16 06:45 Chuck Cells Not Reportable 09/12/16 06:45 Bite Cells Not Reportable 09/12/16 06:45 Crenated Cell Not Reportable 09/12/16 06:45 Elliptocytes Not Reportable 09/12/16 06:45 Acanthocytes (Spur) Not Reportable 09/12/16 06:45 Rouleaux Not Reportable 09/12/16 06:45 Hemoglobin C Crystals Not Reportable 09/12/16 06:45 Schistocytes Not Reportable 09/12/16 06:45 Malaria parasites Not Reportable 09/12/16 06:45 ESR > 140.0 mm/Hr (0-20) 09/08/16 11:48 Jun Bodies Not Reportable 09/12/16 06:45 Hem Pathologist Commnt No 09/12/16 06:45 PT 12.9 Sec. (12.2-14.9) 09/03/16 00:10 INR 0.98 (0.87-1.13) 09/03/16 00:10 APTT 29.0 Sec. (24.2-36.6) 09/03/16 00:10 Thrombin Time 16.8 Sec. (15.1-19.6) 09/03/16 00:10 Fibrinogen 750 mg/dl (211-480) H 09/08/16 11:48 Free Protein S 97 % normal (50-147) 09/08/16 15:35 Total Protein S 109 % (70-140) 09/08/16 15:35 Antithrombin III Ag 100 % (80-120) 09/08/16 15:35 POC ABG pH 7.375 (7.35-7.45) 09/12/16 05:32 POC ABG pCO2 34.6 (35-45) L 09/12/16 05:32 POC ABG pO2 105 (80-105) 09/12/16 05:32 POC ABG HCO3 20.2 09/12/16 05:32 POC ABG Total CO2 21 09/12/16 05:32 POC ABG O2 Sat 98 09/12/16 05:32 POC ABG Base Excess -5 09/12/16 05:32 FiO2 30 % 09/12/16 05:32 Sodium 139 mmol/L (137-145) 09/12/16 06:45 Potassium 4.7 mmol/L (3.6-5.0) 09/12/16 06:45 Chloride 103.8 mmol/L (98-107) 09/12/16 06:45 Carbon Dioxide 20 mmol/L (22-30) L 09/12/16 06:45 Anion Gap 20 mmol/L 09/12/16 06:45 BUN 115 mg/dL (7-17) H 09/12/16 06:45 Creatinine 2.7 mg/dL (0.7-1.2) H 09/12/16 06:45 Estimated GFR 23 ml/min 09/12/16 06:45 BUN/Creatinine Ratio 42.59 % 09/12/16 06:45 Glucose 165 mg/dL (65-100) H 09/12/16 06:45 POC Glucose 184 (70-105) H 09/12/16 05:09 Lactic Acid 1.60 mmol/L (0.7-2.0) 09/08/16 15:40 Calcium 8.0 mg/dL (8.4-10.2) L 09/12/16 06:45 Phosphorus 4.30 mg/dL (2.5-4.5) D 09/08/16 06:18 Magnesium 2.40 mg/dL (1.7-2.3) H 09/07/16 11:43 Total Bilirubin 0.40 mg/dL (0.1-1.2) 09/07/16 11:43 AST 14 units/L (5-40) 09/07/16 11:43 ALT 11 units/L (7-56) 09/07/16 11:43 Alkaline Phosphatase 107 units/L (35-129) 09/07/16 11:43 Ammonia 27.0 umol/L (25-60) 09/07/16 08:37 Total Creatine Kinase 67 units/L (30-135) 09/03/16 11:26 CK-MB (CK-2) 1.4 ng/mL (0.0-4.0) 09/03/16 11:26 CK-MB (CK-2) Rel Index 2.0 (0-4) 09/03/16 11:26 Troponin T < 0.010 ng/mL (0.00-0.029) 09/06/16 10:43 C-Reactive Protein 1.70 mg/dL (0.00-1.30) H 09/12/16 07:22 Total Protein 5.8 g/dL (6.3-8.2) L 09/07/16 11:43 Albumin 2.2 g/dL (3.9-5) L 09/07/16 11:43 Albumin/Globulin Ratio 0.6 % 09/07/16 11:43 Triglycerides 217 mg/dL (2-149) H 09/12/16 07:22 Cholesterol 189 mg/dL (50-199) 09/04/16 03:31 LDL Cholesterol Direct 126 mg/dL (50-130) 09/04/16 03:31 HDL Cholesterol 31 mg/dL (40-59) L 09/04/16 03:31 Cholesterol/HDL Ratio 6.09 % 09/04/16 03:31 TSH 1.010 mlU/mL (0.270-4.200) 09/07/16 08:37 HCG, Qual Negative (Negative) 09/03/16 00:10 Urine Color Yellow (Yellow) 09/09/16 14:13 Urine Turbidity Slightly-cloudy (Clear) 09/09/16 14:13 Urine pH 5.0 (5.0-7.0) 09/09/16 14:13 Ur Specific [place] 1.012 (1.003-1.030) 09/09/16 14:13 Urine Protein 30 mg/dl mg/dL (Negative) 09/09/16 14:13 Urine Glucose (UA) Neg mg/dL (Negative) 09/09/16 14:13 Urine Ketones Neg mg/dL (Negative) 09/09/16 14:13 Urine Blood Lg (Negative) 09/09/16 14:13 Urine Nitrite Neg (Negative) 09/09/16 14:13 Urine Bilirubin Neg (Negative) 09/09/16 14:13 Urine Urobilinogen < 2.0 mg/dL (<2.0) 09/09/16 14:13 Ur Leukocyte Esterase Sm (Negative) 09/09/16 14:13 Urine WBC (Auto) 25.0 /HPF (0.0-6.0) H 09/09/16 14:13 Urine RBC (Auto) > 182.0 /HPF (0.0-6.0) 09/09/16 14:13 Urine Bacteria (Auto) 1+ /HPF (Negative) 09/09/16 14:13 Urine WBC Clumps 2+ /HPF 09/07/16 02:47 Hyaline Casts 4 /LPF 09/07/16 02:47 Urine Mucus Few /HPF 09/09/16 14:13 Urine Eosinophils None seen (None Seen) 09/07/16 16:00 Urine Creatinine 66.3 mg/dL (0.1-20.0) H 09/07/16 16:00 Urine Sodium 22 mEq/L 09/07/16 16:00 Random Vancomycin 2.3 ug/mL (0-40.0) 09/09/16 03:00 Urine Opiates Screen Presumptive negative 09/03/16 15:11 Urine Methadone Screen Presumptive positive 09/03/16 15:11 Ur Barbiturates Screen Presumptive positive 09/03/16 15:11 Ur Phencyclidine Scrn Presumptive negative 09/03/16 15:11 Ur Amphetamines Screen Presumptive negative 09/03/16 15:11 U Benzodiazepines Scrn Presumptive negative 09/03/16 15:11 Urine Cocaine Screen Presumptive negative 09/03/16 15:11 U Marijuana (THC) Screen Presumptive positive 09/03/16 15:11 Drugs of Abuse Note Disclamer 09/03/16 15:11 Rheumatoid Factor 24 IU/ml (0-13) H 09/08/16 11:48 Proteinase 3 (PR3) Ab <1.0 AI (<1.0) 09/07/16 09:20 Myeloperoxidase Ab <1.0 AI (<1.0) 09/07/16 09:20 Centromere B Antibody <1.0 AI (<1.0) 09/08/16 12:02 Complement C3 148 mg/dL (90-180) 09/07/16 09:20 Complement C4 58 mg/dL (16-47) H 09/07/16 09:20 RPR Nonreactive (Nonreactive) 09/08/16 11:48 Hep Bs Antigen Non-reactive (Negative) 09/07/16 09:20 Hepatitis C Antibody Non-reactive (NonReactive) 09/07/16 09:20 HIV 1&2 Antibody Rapid Non react (Non React) 09/08/16 11:48 HIV P24 Antigen Non react (Non React) 09/08/16 11:48 Blood Type A POSITIVE 09/10/16 13:17 Antibody Screen TNR 09/10/16 13:17 DELORIS Antibody Screen Negative 09/10/16 13:17 Crossmatch See Detail 09/10/16 13:17
[2016-09-13] MEDS: DIPRIVAN 10 MG/ML 1,000 MG/100 ML BOTTLE IV SCH ×4 (01:16→17:29)
[2016-09-13] MEDS: HumuLIN R SUB-Q SCH ×4 (01:17→17:38)
[2016-09-13 04:59] LABS: Hematocrit 30.6 % (30.3-42.9); Hemoglobin 9.4 gm/dl (10.1-14.3); Mean Corpuscular HGB Conc 31 % (30-34); Mean Corpuscular Volume 75 fl (79-97); Platelet Count 470 K/mm3 (140-440); Red Blood Count 4.09 M/mm3 (3.65-5.03)
[2016-09-13 05:04] LABS: Mean Corpuscular Hemoglobin 23 pg (28-32)
[2016-09-13 05:32] LABS: Albumin 2.9 g/dL (3.9-5); Calcium 8.5 mg/dL (8.4-10.2)
[2016-09-13 05:36] LABS: Band Neutrophils # (Manual) 2.3 K/mm3; Basophils % (Manual) 0 % (0.0-1.8); Eosinophils % (Manual) 0 % (0.0-4.3); Total Cells Counted 100
[2016-09-13 05:37] LABS: Hypochromasia 1+
[2016-09-13 05:38] LABS: Anisocytosis 1+; Target Cells Rare
[2016-09-13 05:39] LABS: Platelet Estimate Appears Increased
[2016-09-13 05:40] LABS: BUN/Creatinine Ratio 38.66
[2016-09-13] MEDS: NORMODYNE IV PRN (06:04)
[2016-09-13] MEDS: APRESOLINE PO SCH ×3 (06:15→21:42)
[2016-09-13] MEDS: HEPARIN SUB-Q SCH ×3 (06:16→21:44)
--- NOTE | 2016-09-13 07:40 | XRay Report ---
AP CHEST: HISTORY: Followup respiratory failure The endotracheal tube, feeding tube and left arm PICC are unchanged in position. AP view of the chest demonstrates a normal mediastinal and cardiac contour with clear lungs and normal bony and soft tissue structures. IMPRESSION: Unremarkable AP chest.
[2016-09-13] MEDS ORDERED: SIMPLE SYRUP FEEDTUBE PRN ×4 (08:13→08:40)
[2016-09-13] MEDS ORDERED: SODIUM BICARBONATE FEEDTUBE PRN (08:13)
[2016-09-13] MEDS ORDERED: PANCREAZE DR 10,500 UNIT FEEDTUBE PRN (08:13)
--- NOTE | 2016-09-13 08:13 | Progress Note ---
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 C. difficile negative, continue to monitor, consider ID/hematology consult if needed --2 diabetes mellitus; Accu-Chek sliding scale coverage and ADA diet and insulin as needed -- anemia requiring blood transfusion, closely monitor H&H and transfuse as needed --Moderate to severe protein calorie malnutrition with albumin of 2.2 Nutritional supplements, tube feeding, supportive care --DVT prophylaxis with heparin --Full CODE STATUS Consults and recommendations noted and appreciated Closely monitor the patient and adjust the management as needed Plan of care discussed with the patient's nurse Critical Care time 33 minutes The high probability of a clinically significant, sudden or life threatening deterioration of the [cardiovascular, pulmonary, infectious, renal and neurological] system(s) required my full and direct attention, intervention and personal management. The aggregate critical care time was [33] minutes. This time is in addition to time spent performing reported procedures but includes the following: [] Data Review and interpretation [] Patient assessment and monitoring of vital signs [] Documentation [] Medication orders and management History Interval history: Patient seen and evaluated in her room in ICU ,medical records reviewed Maintenance intubated on ventilatory support, sedated, not in acute distress Hospitalist Physical - Constitutional Vitals: Temp Pulse Resp BP Pulse Ox 98.7 F 178 H 18 138/90 98 09/13/16 04:00 09/13/16 06:15 09/13/16 06:00 09/13/16 06:15 09/13/16 04:31 General appearance: Present: no acute distress, well-nourished, other (orally intubated and sedated) - EENT Eyes: Present: PERRL, EOM intact - Neck Neck: Present: supple, normal ROM - Respiratory Respiratory effort: normal Respiratory: bilateral: diminished, rhonchi, negative: rales, wheezing - Cardiovascular Rhythm: regular Heart Sounds: Present: S1 & S2 - Extremities Extremities: no ischemia Peripheral Pulses: within normal limits - Abdominal General gastrointestinal: soft, non-tender, non-distended, normal bowel sounds - Integumentary Integumentary: Present: clear, warm - Psychiatric Psychiatric: other (intubated) - Neurologic Neurologic: other (intubated noncommunicative) Results - Labs CBC & Chem 7: 09/13/16 04:00 09/13/16 04:00 Labs: Laboratory Last Values WBC 45.0 K/mm3 (4.5-11.0) H* 09/13/16 04:00 RBC 4.09 M/mm3 (3.65-5.03) 09/13/16 04:00 Hgb 9.4 gm/dl (10.1-14.3) L 09/13/16 04:00 Hct 30.6 % (30.3-42.9) 09/13/16 04:00 MCV 75 fl (79-97) L 09/13/16 04:00 MCH 23 pg (28-32) L 09/13/16 04:00 MCHC 31 % (30-34) 09/13/16 04:00 RDW 19.0 % (13.2-15.2) H 09/13/16 04:00 Plt Count 470 K/mm3 (140-440) H 09/13/16 04:00 Lymph % (Auto) 8.5 % (13.4-35.0) L 09/07/16 11:43 [place] % (Auto) 5.4 % (0.0-7.3) 09/07/16 11:43 Eos % (Auto) 0.2 % (0.0-4.3) 09/07/16 11:43 Baso % (Auto) 0.1 % (0.0-1.8) 09/07/16 11:43 Lymph # Endoscopy Technician 09/13/16 04:00 [place] # 1.0 K/mm3 (0.0-0.8) H 09/07/16 11:43 Eos # 0.0 K/mm3 (0.0-0.4) 09/07/16 11:43 Baso # 0.0 K/mm3 (0.0-0.1) 09/07/16 11:43 Add Manual Diff Complete 09/13/16 04:00 Total Counted 100 09/13/16 04:00 Seg Neutrophils % Endoscopy Technician 09/08/16 06:18 Seg Neuts % (Manual) 89.0 % (40.0-70.0) H 09/13/16 04:00 Band Neutrophils % 5.0 % 09/13/16 04:00 Lymphocytes % (Manual) 5.0 % (13.4-35.0) L 09/13/16 04:00 Reactive Lymphs % (Man) 0 % 09/13/16 04:00 Monocytes % (Manual) 1.0 % (0.0-7.3) 09/13/16 04:00 Eosinophils % (Manual) 0 % (0.0-4.3) 09/13/16 04:00 Basophils % (Manual) 0 % (0.0-1.8) 09/13/16 04:00 Metamyelocytes % 0 % 09/13/16 04:00 Myelocytes % 0 % 09/13/16 04:00 Promyelocytes % 0 % 09/13/16 04:00 Blast Cells % 0 % 09/13/16 04:00 Nucleated RBC % Not Reportable 09/13/16 04:00 Seg Neutrophils # 16.6 K/mm3 (1.8-7.7) H 09/07/16 11:43 Seg Neutrophils # Man 40.1 K/mm3 (1.8-7.7) H 09/13/16 04:00 Band Neutrophils # 2.3 K/mm3 09/13/16 04:00 Lymphocytes # (Manual) 2.3 K/mm3 (1.2-5.4) 09/13/16 04:00 Abs React Lymphs (Man) 0.0 K/mm3 09/13/16 04:00 Monocytes # (Manual) 0.5 K/mm3 (0.0-0.8) 09/13/16 04:00 Eosinophils # (Manual) 0.0 K/mm3 (0.0-0.4) 09/13/16 04:00 Basophils # (Manual) 0.0 K/mm3 (0.0-0.1) 09/13/16 04:00 Metamyelocytes # 0.0 K/mm3 09/13/16 04:00 Myelocytes # 0.0 K/mm3 09/13/16 04:00 Promyelocytes # 0.0 K/mm3 09/13/16 04:00 Blast Cells # 0.0 K/mm3 09/13/16 04:00 WBC Morphology Not Reportable 09/13/16 04:00 Hypersegmented Neuts Not Reportable 09/13/16 04:00 Hyposegmented Neuts Not Reportable 09/13/16 04:00 Hypogranular Neuts Not Reportable 09/13/16 04:00 Smudge Cells Not Reportable 09/13/16 04:00 Toxic Granulation Not Reportable 09/13/16 04:00 Toxic Vacuolation Not Reportable 09/13/16 04:00 Dohle Bodies Not Reportable 09/13/16 04:00 Pelger-Huet Anomaly Not Reportable 09/13/16 04:00 Jasmina Rods Not Reportable 09/13/16 04:00 Platelet Estimate Appears increased 09/13/16 04:00 Clumped Platelets Not Reportable 09/13/16 04:00 Plt Clumps, EDTA Not Reportable 09/13/16 04:00 Large Platelets Not Reportable 09/13/16 04:00 Giant Platelets Not Reportable 09/13/16 04:00 Platelet Satelliting Not Reportable 09/13/16 04:00 Plt Morphology Comment Not Reportable 09/13/16 04:00 RBC Morphology Not Reportable 09/13/16 04:00 Dimorphic RBCs Not Reportable 09/13/16 04:00 Polychromasia Not Reportable 09/13/16 04:00 Hypochromasia 1+ 09/13/16 04:00 Poikilocytosis Not Reportable 09/13/16 04:00 Anisocytosis 1+ 09/13/16 04:00 Microcytosis Not Reportable 09/13/16 04:00 Macrocytosis Not Reportable 09/13/16 04:00 Spherocytes Not Reportable 09/13/16 04:00 Pappenheimer Bodies Not Reportable 09/13/16 04:00 Sickle Cells Not Reportable 09/13/16 04:00 Target Cells Rare 09/13/16 04:00 Tear Drop Cells Not Reportable 09/13/16 04:00 Ovalocytes Not Reportable 09/13/16 04:00 Helmet Cells Not Reportable 09/13/16 04:00 Monet-Rocklin Bodies Not Reportable 09/13/16 04:00 Speculator Rings Not Reportable 09/13/16 04:00 Chuck Cells Not Reportable 09/13/16 04:00 Bite Cells Not Reportable 09/13/16 04:00 Crenated Cell Not Reportable 09/13/16 04:00 Elliptocytes Not Reportable 09/13/16 04:00 Acanthocytes (Spur) Not Reportable 09/13/16 04:00 Rouleaux Not Reportable 09/13/16 04:00 Hemoglobin C Crystals Not Reportable 09/13/16 04:00 Schistocytes Not Reportable 09/13/16 04:00 Malaria parasites Not Reportable 09/13/16 04:00 ESR > 140.0 mm/Hr (0-20) 09/08/16 11:48 Jun Bodies Not Reportable 09/13/16 04:00 Hem Pathologist Commnt Sent to pathology 09/13/16 04:00 PT 12.9 Sec. (12.2-14.9) 09/03/16 00:10 INR 0.98 (0.87-1.13) 09/03/16 00:10 APTT 29.0 Sec. (24.2-36.6) 09/03/16 00:10 Thrombin Time 16.8 Sec. (15.1-19.6) 09/03/16 00:10 Fibrinogen 750 mg/dl (211-480) H 09/08/16 11:48 Protein C Antigen 122 % (70-140) 09/08/16 15:35 Free Protein S 97 % normal (50-147) 09/08/16 15:35 Total Protein S 109 % (70-140) 09/08/16 15:35 Antithrombin III Ag 100 % (80-120) 09/08/16 15:35 Factor V Activity 182 % (65-150) H 09/08/16 15:35 POC ABG pH 7.382 (7.35-7.45) 09/13/16 04:00 POC ABG pCO2 36.1 (35-45) 09/13/16 04:00 POC ABG pO2 99 (80-105) 09/13/16 04:00 POC ABG HCO3 21.4 09/13/16 04:00 POC ABG Total CO2 22 09/13/16 04:00 POC ABG O2 Sat 98 09/13/16 04:00 POC ABG Base Excess -4 09/13/16 04:00 FiO2 30 % 09/13/16 04:00 Sodium 138 mmol/L (137-145) 09/13/16 04:00 Potassium 5.0 mmol/L (3.6-5.0) 09/13/16 04:00 Chloride 100.7 mmol/L (98-107) 09/13/16 04:00 Carbon Dioxide 20 mmol/L (22-30) L 09/13/16 04:00 Anion Gap 22 mmol/L 09/13/16 04:00 BUN 116 mg/dL (7-17) H 09/13/16 04:00 Creatinine 3.0 mg/dL (0.7-1.2) H 09/13/16 04:00 Estimated GFR 20 ml/min 09/13/16 04:00 BUN/Creatinine Ratio 38.66 % 09/13/16 04:00 Glucose 172 mg/dL (65-100) H 09/13/16 04:00 POC Glucose 150 (70-105) H 09/12/16 23:28 Lactic Acid 1.60 mmol/L (0.7-2.0) 09/08/16 15:40 Calcium 8.5 mg/dL (8.4-10.2) 09/13/16 04:00 Phosphorus 4.30 mg/dL (2.5-4.5) D 09/08/16 06:18 Magnesium 2.40 mg/dL (1.7-2.3) H 09/07/16 11:43 Total Bilirubin 0.30 mg/dL (0.1-1.2) 09/13/16 04:00 AST 20 units/L (5-40) 09/13/16 04:00 ALT 18 units/L (7-56) 09/13/16 04:00 Alkaline Phosphatase 72 units/L (35-129) 09/13/16 04:00 Ammonia 27.0 umol/L (25-60) 09/07/16 08:37 Total Creatine Kinase 67 units/L (30-135) 09/03/16 11:26 CK-MB (CK-2) 1.4 ng/mL (0.0-4.0) 09/03/16 11:26 CK-MB (CK-2) Rel Index 2.0 (0-4) 09/03/16 11:26 Troponin T < 0.010 ng/mL (0.00-0.029) 09/06/16 10:43 C-Reactive Protein 1.70 mg/dL (0.00-1.30) H 09/12/16 07:22 Total Protein 6.2 g/dL (6.3-8.2) L 09/13/16 04:00 Albumin 2.9 g/dL (3.9-5) L 09/13/16 04:00 Albumin/Globulin Ratio 0.9 % 09/13/16 04:00 Triglycerides 217 mg/dL (2-149) H 09/12/16 07:22 Cholesterol 189 mg/dL (50-199) 09/04/16 03:31 LDL Cholesterol Direct 126 mg/dL (50-130) 09/04/16 03:31 HDL Cholesterol 31 mg/dL (40-59) L 09/04/16 03:31 Cholesterol/HDL Ratio 6.09 % 09/04/16 03:31 TSH 1.010 mlU/mL (0.270-4.200) 09/07/16 08:37 HCG, Qual Negative (Negative) 09/03/16 00:10 Urine Color Yellow (Yellow) 09/09/16 14:13 Urine Turbidity Slightly-cloudy (Clear) 09/09/16 14:13 Urine pH 5.0 (5.0-7.0) 09/09/16 14:13 Ur Specific [place] 1.012 (1.003-1.030) 09/09/16 14:13 Urine Protein 30 mg/dl mg/dL (Negative) 09/09/16 14:13 Urine Glucose (UA) Neg mg/dL (Negative) 09/09/16 14:13 Urine Ketones Neg mg/dL (Negative) 09/09/16 14:13 Urine Blood Lg (Negative) 09/09/16 14:13 Urine Nitrite Neg (Negative) 09/09/16 14:13 Urine Bilirubin Neg (Negative) 09/09/16 14:13 Urine Urobilinogen < 2.0 mg/dL (<2.0) 09/09/16 14:13 Ur Leukocyte Esterase Sm (Negative) 09/09/16 14:13 Urine WBC (Auto) 25.0 /HPF (0.0-6.0) H 09/09/16 14:13 Urine RBC (Auto) > 182.0 /HPF (0.0-6.0) 09/09/16 14:13 Urine Bacteria (Auto) 1+ /HPF (Negative) 09/09/16 14:13 Urine WBC Clumps 2+ /HPF 09/07/16 02:47 Hyaline Casts 4 /LPF 09/07/16 02:47 Urine Mucus Few /HPF 09/09/16 14:13 Urine Eosinophils None seen (None Seen) 09/07/16 16:00 Urine Creatinine 66.3 mg/dL (0.1-20.0) H 09/07/16 16:00 Urine Sodium 22 mEq/L 09/07/16 16:00 Random Vancomycin 2.3 ug/mL (0-40.0) 09/09/16 03:00 Urine Opiates Screen Presumptive negative 09/03/16 15:11 Urine Methadone Screen Presumptive positive 09/03/16 15:11 Ur Barbiturates Screen Presumptive positive 09/03/16 15:11 Ur Phencyclidine Scrn Presumptive negative 09/03/16 15:11 Ur Amphetamines Screen Presumptive negative 09/03/16 15:11 U Benzodiazepines Scrn Presumptive negative 09/03/16 15:11 Urine Cocaine Screen Presumptive negative 09/03/16 15:11 U Marijuana (THC) Screen Presumptive positive 09/03/16 15:11 Drugs of Abuse Note Disclamer 09/03/16 15:11 Rheumatoid Factor 24 IU/ml (0-13) H 09/08/16 11:48 Proteinase 3 (PR3) Ab <1.0 AI (<1.0) 09/07/16 09:20 Myeloperoxidase Ab <1.0 AI (<1.0) 09/07/16 09:20 Sjogren's Antibody <1.0 AI (<1.0) 09/08/16 15:35 Scl-70 Scleroderma Ab <1.0 AI (<1.0) 07/20/17 15:35 Centromere B Antibody <1.0 AI (<1.0) 09/08/16 12:02 Complement C3 148 mg/dL (90-180) 09/07/16 09:20 Complement C4 58 mg/dL (16-47) H 09/07/16 09:20 RPR Nonreactive (Nonreactive) 09/08/16 11:48 Hep Bs Antigen Non-reactive (Negative) 09/07/16 09:20 Hepatitis C Antibody Non-reactive (NonReactive) 09/07/16 09:20 HIV 1&2 Antibody Rapid Non react (Non React) 09/08/16 11:48 HIV P24 Antigen Non react (Non React) 09/08/16 11:48 Blood Type A POSITIVE 09/10/16 13:17 Antibody Screen TNR 09/10/16 13:17 DELORIS Antibody Screen Negative 09/10/16 13:17 Crossmatch See Detail 09/10/16 13:17
[2016-09-13] MEDS: CATAPRES PO SCH ×2 (09:07→19:46)
[2016-09-13] MEDS: HALDOL IV PRN ×2 (09:23→18:21)
--- NOTE | 2016-09-13 09:28 | Progress Note ---
Assessment and Plan - Patient Problems (1) Acute respiratory failure with hypoxia Current Visit: Yes Status: Acute Plan to address problem: - continue aspiration precautions / address VAP bundles - continue to wean oxygen for MAP > 94% - continue bronchodilators and pulmonary toilet - will taper solumedrol (no active needs pulmonary-[place]) - complete empiric levaquin dosing - consult placed for trach and PEG placement (2) Acute CVA (cerebrovascular accident) Current Visit: Yes Status: Acute Plan to address problem: - out of tpA window (initially stopped due to uncontrolled HTN) - Left MCA teritory stroke with some midline shift on last CT - seen by neurology and prognosis for recovery of mental status guarded to poor - optimizing secondary prevention modalities now (BP, lipid anti-platelet therapy) - will continue steroid taper (3) Hypertensive emergency Current Visit: Yes Status: Acute Plan to address problem: - continue clonidine at 0.3mg q8h - increased hydralazine to 75mg bid (with hold parameters) - continue prn IV rescue labetalol - add metoprolol re: tachycardia also (4) Obesity (BMI 35.0-39.9 without comorbidity) Current Visit: Yes Status: Chronic Plan to address problem: - weight loss counselling and support once more stable - adjust tube feeds per supply chain intern's recommendations (5) Type 2 diabetes mellitus Current Visit: Yes Status: Chronic Qualifiers: Diabetes mellitus complication status: D Diabetes mellitus complication detail: D Diabetic retinopathy severity: D Proliferative retinopathy type: P Diabetes mellitus macular edema: D Diabetes mellitus steel estimator insulin use : D Laterality: L Chronic kidney disease stage: C Plan to address problem: - continue SSI - continue lantus at 5units sq q24h (6) Leukocytosis (leucocytosis) Current Visit: Yes Status: Acute Qualifiers: Leukocytosis type: L Plan to address problem: - afebrile - ? leukemoid reaction - ? steroid leucocytosis - continue empiric levaquin - get CRP & lactate and trend - tapering systemic steroids - follow clinically - C-diff infection assay negative - ID consulted - will consider empiric flagyl otherwise (7) Discharge planning issues Current Visit: Yes Status: Acute Plan to address problem: - she remains critically ill on life sustaining interventions including MVS and at risk for further acute deterioration including ....30' CCT without overlap Subjective Date of service: 09/13/16 Principal diagnosis: Acute CVA; Acute Encephalopathy; Acute Respiratory Failure on MVS Interval history: Seen and examined at bedside; 24 hour events reviewed; nursing and respiratory care staff consulted; no adverse overnight events reported to me; resting in bed ; remains on MVS; sedated; no emesis or overt aspiration; no seizures witnessed ; no high grade fevers Objective Vital Signs - 12hr 09/12/16 09/12/16 09/12/16 21:30 22:00 22:14 Temperature Pulse Rate 145 H 135 H 145 H Respiratory 20 18 Rate Blood Pressure 188/115 173/95 173/95 O2 Sat by Pulse 99 98 Oximetry 09/12/16 09/12/16 09/12/16 22:30 23:01 23:30 Temperature Pulse Rate 149 H 145 H 129 H Respiratory 20 18 18 Rate Blood Pressure 136/73 122/70 138/69 O2 Sat by Pulse 100 100 Oximetry 09/12/16 09/12/16 09/13/16 23:41 23:46 00:00 Temperature 99.0 F Pulse Rate 120 H 118 H Respiratory 18 Rate Blood Pressure 138/69 129/63 O2 Sat by Pulse 100 99 Oximetry 09/13/16 09/13/16 09/13/16 00:30 01:00 01:30 Temperature Pulse Rate 112 H 107 H 110 H Respiratory 18 18 18 Rate Blood Pressure 120/64 123/65 122/62 O2 Sat by Pulse 100 100 99 Oximetry 09/13/16 09/13/16 09/13/16 02:00 02:30 03:00 Temperature Pulse Rate 112 H 113 H 105 H Respiratory 18 18 18 Rate Blood Pressure 125/75 169/93 124/74 O2 Sat by Pulse 99 100 100 Oximetry 09/13/16 09/13/16 09/13/16 03:30 03:49 04:00 Temperature 98.7 F Pulse Rate 143 H 154 H Respiratory 20 170 H Rate Blood Pressure 176/122 176/122 O2 Sat by Pulse 99 100 99 Oximetry 09/13/16 09/13/16 09/13/16 04:01 04:31 05:01 Temperature Pulse Rate 157 H 153 H 175 H Respiratory 19 16 19 Rate Blood Pressure 191/110 253/131 178/102 O2 Sat by Pulse 98 98 Oximetry 09/13/16 09/13/16 09/13/16 05:30 06:00 06:04 Temperature Pulse Rate 187 H 120 H 180 H Respiratory 18 18 Rate Blood Pressure 184/96 138/90 184/96 O2 Sat by Pulse Oximetry 09/13/16 09/13/16 09/13/16 06:15 08:15 09:07 Temperature Pulse Rate 178 H 122 H 126 H Respiratory Rate Blood Pressure 138/90 205/130 185/108 O2 Sat by Pulse 99 Oximetry Constitutional: no acute distress, agitated, other (sedated) Eyes: non-icteric ENT: oropharynx moist Neck: supple, no lymphadenopathy Effort: normal Ascultation: Bilateral: clear Cardiovascular: regular rate and rhythm Gastrointestinal: normoactive bowel sounds, soft, non-tender, non-distended Integumentary: normal Extremities: no cyanosis, no edema, pulses normal, no ischemia or petechiae Neurologic: pupils equal and round, other (sedated) Psychiatric: other (unable to assess) CBC and BMP: 09/13/16 04:00 09/13/16 04:00 ABG, PT/INR, D-dimer: ABG POC ABG pH 7.382 (7.35-7.45) 09/13/16 04:00 POC ABG pCO2 36.1 (35-45) 09/13/16 04:00 POC ABG pO2 99 (80-105) 09/13/16 04:00 POC ABG HCO3 21.4 09/13/16 04:00 POC ABG Total CO2 22 09/13/16 04:00 POC ABG O2 Sat 98 09/13/16 04:00 PT/INR, D-dimer PT 12.9 Sec. (12.2-14.9) 09/03/16 00:10 INR 0.98 (0.87-1.13) 09/03/16 00:10 Abnormal lab findings: Abnormal Labs 09/03/16 09/03/16 09/03/16 12:12 15:07 16:20 WBC RBC Hgb Hct MCV MCH RDW Plt Count Lymph % (Auto) [place] # Seg Neutrophils % Seg Neuts % (Manual) Lymphocytes % (Manual) Seg Neutrophils # Seg Neutrophils # Man Lymphocytes # (Manual) Monocytes # (Manual) Fibrinogen Factor V Activity POC ABG pH 7.452 H POC ABG pCO2 POC ABG pO2 Sodium Potassium Chloride Carbon Dioxide BUN Creatinine Glucose POC Glucose 178 H Calcium Phosphorus 2.20 L Magnesium 1.60 L C-Reactive Protein Total Protein Albumin Triglycerides HDL Cholesterol Urine WBC (Auto) Urine Creatinine Rheumatoid Factor Complement C4 Crossmatch 09/03/16 09/03/16 09/03/16 17:57 17:58 23:50 WBC RBC Hgb Hct MCV MCH RDW Plt Count Lymph % (Auto) [place] # Seg Neutrophils % Seg Neuts % (Manual) Lymphocytes % (Manual) Seg Neutrophils # Seg Neutrophils # Man Lymphocytes # (Manual) Monocytes # (Manual) Fibrinogen Factor V Activity POC ABG pH POC ABG pCO2 POC ABG pO2 Sodium Potassium Chloride Carbon Dioxide BUN Creatinine Glucose POC Glucose 162 H 145 H Calcium Phosphorus 2.30 L Magnesium C-Reactive Protein Total Protein Albumin Triglycerides HDL Cholesterol Urine WBC (Auto) Urine Creatinine Rheumatoid Factor Complement C4 Crossmatch 09/04/16 09/04/16 09/04/16 03:31 03:31 05:42 WBC RBC Hgb 9.7 L D Hct MCV 72 L MCH 23 L RDW 17.5 H Plt Count Lymph % (Auto) 11.1 L [place] # Seg Neutrophils % 84.3 H Seg Neuts % (Manual) Lymphocytes % (Manual) Seg Neutrophils # 8.9 H Seg Neutrophils # Man Lymphocytes # (Manual) Monocytes # (Manual) Fibrinogen Factor V Activity POC ABG pH POC ABG pCO2 POC ABG pO2 Sodium 135 L Potassium 2.9 L* Chloride 97.2 L Carbon Dioxide 19 L BUN Creatinine 1.7 H Glucose 170 H POC Glucose 152 H Calcium Phosphorus Magnesium C-Reactive Protein Total Protein Albumin Triglycerides 160 H HDL Cholesterol 31 L Urine WBC (Auto) Urine Creatinine Rheumatoid Factor Complement C4 Crossmatch 09/04/16 09/04/16 09/04/16 11:34 17:46 23:29 WBC RBC Hgb Hct MCV MCH RDW Plt Count Lymph % (Auto) [place] # Seg Neutrophils % Seg Neuts % (Manual) Lymphocytes % (Manual) Seg Neutrophils # Seg Neutrophils # Man Lymphocytes # (Manual) Monocytes # (Manual) Fibrinogen Factor V Activity POC ABG pH POC ABG pCO2 POC ABG pO2 Sodium Potassium Chloride Carbon Dioxide BUN Creatinine Glucose POC Glucose 165 H 210 H 139 H Calcium Phosphorus Magnesium C-Reactive Protein Total Protein Albumin Triglycerides HDL Cholesterol Urine WBC (Auto) Urine Creatinine Rheumatoid Factor Complement C4 Crossmatch 09/05/16 09/05/16 09/05/16 04:05 04:05 05:38 WBC RBC Hgb Hct MCV 76 L D MCH 23 L RDW 17.8 H Plt Count Lymph % (Auto) [place] # Seg Neutrophils % Seg Neuts % (Manual) Lymphocytes % (Manual) Seg Neutrophils # Seg Neutrophils # Man Lymphocytes # (Manual) Monocytes # (Manual) Fibrinogen Factor V Activity POC ABG pH POC ABG pCO2 POC ABG pO2 Sodium 134 L Potassium Chloride Carbon Dioxide 18 L BUN Creatinine 1.8 H Glucose 192 H POC Glucose 175 H Calcium Phosphorus Magnesium C-Reactive Protein Total Protein Albumin Triglycerides HDL Cholesterol Urine WBC (Auto) Urine Creatinine Rheumatoid Factor Complement C4 Crossmatch 09/05/16 09/05/16 09/05/16 11:38 17:48 23:22 WBC RBC Hgb Hct MCV MCH RDW Plt Count Lymph % (Auto) [place] # Seg Neutrophils % Seg Neuts % (Manual) Lymphocytes % (Manual) Seg Neutrophils # Seg Neutrophils # Man Lymphocytes # (Manual) Monocytes # (Manual) Fibrinogen Factor V Activity POC ABG pH POC ABG pCO2 POC ABG pO2 Sodium Potassium Chloride Carbon Dioxide BUN Creatinine Glucose POC Glucose 164 H 186 H 195 H Calcium Phosphorus Magnesium C-Reactive Protein Total Protein Albumin Triglycerides HDL Cholesterol Urine WBC (Auto) Urine Creatinine Rheumatoid Factor Complement C4 Crossmatch 09/06/16 09/06/16 09/06/16 04:12 05:59 07:32 WBC RBC Hgb Hct MCV MCH RDW Plt Count Lymph % (Auto) [place] # Seg Neutrophils % Seg Neuts % (Manual) Lymphocytes % (Manual) Seg Neutrophils # Seg Neutrophils # Man Lymphocytes # (Manual) Monocytes # (Manual) Fibrinogen Factor V Activity POC ABG pH 7.514 H POC ABG pCO2 29.1 L POC ABG pO2 72 L Sodium 133 L Potassium 3.4 L Chloride 94.9 L Carbon Dioxide 19 L BUN 30 H Creatinine 2.1 H Glucose 139 H POC Glucose 146 H Calcium Phosphorus Magnesium C-Reactive Protein Total Protein Albumin Triglycerides HDL Cholesterol Urine WBC (Auto) Urine Creatinine Rheumatoid Factor Complement C4 Crossmatch 09/06/16 09/06/16 09/06/16 11:57 17:58 19:02 WBC RBC Hgb Hct MCV MCH RDW Plt Count Lymph % (Auto) [place] # Seg Neutrophils % Seg Neuts % (Manual) Lymphocytes % (Manual) Seg Neutrophils # Seg Neutrophils # Man Lymphocytes # (Manual) Monocytes # (Manual) Fibrinogen Factor V Activity POC ABG pH 7.465 H POC ABG pCO2 32.0 L POC ABG pO2 Sodium Potassium Chloride Carbon Dioxide BUN Creatinine Glucose POC Glucose 165 H 160 H Calcium Phosphorus Magnesium C-Reactive Protein Total Protein Albumin Triglycerides HDL Cholesterol Urine WBC (Auto) Urine Creatinine Rheumatoid Factor Complement C4 Crossmatch 09/06/16 09/07/16 09/07/16 23:45 02:47 02:47 WBC RBC Hgb Hct MCV MCH RDW Plt Count Lymph % (Auto) [place] # Seg Neutrophils % Seg Neuts % (Manual) Lymphocytes % (Manual) Seg Neutrophils # Seg Neutrophils # Man Lymphocytes # (Manual) Monocytes # (Manual) Fibrinogen Factor V Activity POC ABG pH POC ABG pCO2 POC ABG pO2 Sodium Potassium Chloride Carbon Dioxide BUN Creatinine Glucose POC Glucose 204 H Calcium Phosphorus Magnesium C-Reactive Protein Total Protein Albumin Triglycerides HDL Cholesterol Urine WBC (Auto) 68.0 H Urine Creatinine 106.1 H Rheumatoid Factor Complement C4 Crossmatch 09/07/16 09/07/16 09/07/16 04:50 06:19 06:39 WBC RBC Hgb Hct MCV MCH RDW Plt Count Lymph % (Auto) [place] # Seg Neutrophils % Seg Neuts % (Manual) Lymphocytes % (Manual) Seg Neutrophils # Seg Neutrophils # Man Lymphocytes # (Manual) Monocytes # (Manual) Fibrinogen Factor V Activity POC ABG pH 7.457 H POC ABG pCO2 32.1 L POC ABG pO2 76 L Sodium 132 L Potassium Chloride 94.7 L Carbon Dioxide BUN 53 H Creatinine 2.9 H Glucose 151 H POC Glucose 149 H Calcium Phosphorus Magnesium C-Reactive Protein Total Protein Albumin Triglycerides HDL Cholesterol Urine WBC (Auto) Urine Creatinine Rheumatoid Factor Complement C4 Crossmatch 09/07/16 09/07/16 09/07/16 09:20 11:43 11:43 WBC 19.4 H RBC Hgb 8.3 L Hct 26.4 L D MCV 72 L D MCH 22 L RDW 17.9 H Plt Count Lymph % (Auto) 8.5 L [place] # 1.0 H Seg Neutrophils % 85.8 H Seg Neuts % (Manual) Lymphocytes % (Manual) Seg Neutrophils # 16.6 H Seg Neutrophils # Man Lymphocytes # (Manual) Monocytes # (Manual) Fibrinogen Factor V Activity POC ABG pH POC ABG pCO2 POC ABG pO2 Sodium 134 L Potassium Chloride 97.2 L Carbon Dioxide 20 L BUN 58 H Creatinine 2.9 H Glucose 147 H POC Glucose Calcium Phosphorus 2.40 L Magnesium 2.40 H C-Reactive Protein Total Protein 5.8 L Albumin 2.2 L Triglycerides HDL Cholesterol Urine WBC (Auto) Urine Creatinine Rheumatoid Factor Complement C4 58 H Crossmatch 09/07/16 09/07/16 09/07/16 11:50 16:00 17:31 WBC RBC Hgb Hct MCV MCH RDW Plt Count Lymph % (Auto) [place] # Seg Neutrophils % Seg Neuts % (Manual) Lymphocytes % (Manual) Seg Neutrophils # Seg Neutrophils # Man Lymphocytes # (Manual) Monocytes # (Manual) Fibrinogen Factor V Activity POC ABG pH POC ABG pCO2 POC ABG pO2 158 H Sodium Potassium Chloride Carbon Dioxide BUN Creatinine Glucose POC Glucose 175 H Calcium Phosphorus Magnesium C-Reactive Protein Total Protein Albumin Triglycerides HDL Cholesterol Urine WBC (Auto) Urine Creatinine 66.3 H Rheumatoid Factor Complement C4 Crossmatch 09/07/16 09/08/16 09/08/16 23:50 05:46 06:18 WBC 17.8 H RBC 3.58 L Hgb 8.1 L Hct 25.5 L MCV 71 L MCH 23 L RDW 18.4 H Plt Count Lymph % (Auto) [place] # Seg Neutrophils % Seg Neuts % (Manual) 92.0 H Lymphocytes % (Manual) 6.0 L Seg Neutrophils # Seg Neutrophils # Man 16.4 H Lymphocytes # (Manual) 1.1 L Monocytes # (Manual) Fibrinogen Factor V Activity POC ABG pH POC ABG pCO2 34.3 L POC ABG pO2 71 L Sodium Potassium Chloride Carbon Dioxide BUN Creatinine Glucose POC Glucose 216 H Calcium Phosphorus Magnesium C-Reactive Protein Total Protein Albumin Triglycerides HDL Cholesterol Urine WBC (Auto) Urine Creatinine Rheumatoid Factor Complement C4 Crossmatch 09/08/16 09/08/16 09/08/16 06:18 06:51 10:55 WBC RBC Hgb Hct MCV MCH RDW Plt Count Lymph % (Auto) [place] # Seg Neutrophils % Seg Neuts % (Manual) Lymphocytes % (Manual) Seg Neutrophils # Seg Neutrophils # Man Lymphocytes # (Manual) Monocytes # (Manual) Fibrinogen Factor V Activity POC ABG pH POC ABG pCO2 POC ABG pO2 Sodium 133 L Potassium Chloride 96.9 L Carbon Dioxide 20 L BUN 63 H Creatinine 2.7 H Glucose 195 H POC Glucose 204 H 169 H Calcium Phosphorus Magnesium C-Reactive Protein Total Protein Albumin Triglycerides HDL Cholesterol Urine WBC (Auto) Urine Creatinine Rheumatoid Factor Complement C4 Crossmatch 09/08/16 09/08/1609/08/17 11:48 11:48 11:48 WBC RBC Hgb Hct MCV MCH RDW Plt Count Lymph % (Auto) [place] # Seg Neutrophils % Seg Neuts % (Manual) Lymphocytes % (Manual) Seg Neutrophils # Seg Neutrophils # Man Lymphocytes # (Manual) Monocytes # (Manual) Fibrinogen 750 H Factor V Activity POC ABG pH POC ABG pCO2 POC ABG pO2 Sodium Potassium Chloride Carbon Dioxide BUN Creatinine Glucose POC Glucose Calcium Phosphorus Magnesium C-Reactive Protein 15.70 H Total Protein Albumin Triglycerides HDL Cholesterol Urine WBC (Auto) Urine Creatinine Rheumatoid Factor 24 H Complement C4 Crossmatch 09/08/16 09/08/16 09/09/16 15:35 18:25 00:24 WBC RBC Hgb Hct MCV MCH RDW Plt Count Lymph % (Auto) [place] # Seg Neutrophils % Seg Neuts % (Manual) Lymphocytes % (Manual) Seg Neutrophils # Seg Neutrophils # Man Lymphocytes # (Manual) Monocytes # (Manual) Fibrinogen Factor V Activity 182 H POC ABG pH POC ABG pCO2 POC ABG pO2 Sodium Potassium Chloride Carbon Dioxide BUN Creatinine Glucose POC Glucose 184 H 216 H Calcium Phosphorus Magnesium C-Reactive Protein Total Protein Albumin Triglycerides HDL Cholesterol Urine WBC (Auto) Urine Creatinine Rheumatoid Factor Complement C4 Crossmatch 09/09/16 09/09/16 09/09/16 03:00 03:00 04:04 WBC 27.9 H RBC Hgb 8.7 L Hct 28.1 L MCV 72 L MCH 22 L RDW 18.4 H Plt Count 485 H Lymph % (Auto) [place] # Seg Neutrophils % Seg Neuts % (Manual) 77.0 H Lymphocytes % (Manual) 9.0 L Seg Neutrophils # Seg Neutrophils # Man 21.5 H Lymphocytes # (Manual) Monocytes # (Manual) 2.0 H Fibrinogen Factor V Activity POC ABG pH POC ABG pCO2 POC ABG pO2 121 H Sodium 135 L Potassium Chloride 96.3 L Carbon Dioxide 21 L BUN 83 H Creatinine 3.0 H Glucose 135 H POC Glucose Calcium Phosphorus Magnesium C-Reactive Protein Total Protein Albumin Triglycerides HDL Cholesterol Urine WBC (Auto) Urine Creatinine Rheumatoid Factor Complement C4 Crossmatch 09/09/16 09/09/16 09/09/16 05:41 11:55 14:13 WBC RBC Hgb Hct MCV MCH RDW Plt Count Lymph % (Auto) [place] # Seg Neutrophils % Seg Neuts % (Manual) Lymphocytes % (Manual) Seg Neutrophils # Seg Neutrophils # Man Lymphocytes # (Manual) Monocytes # (Manual) Fibrinogen Factor V Activity POC ABG pH POC ABG pCO2 POC ABG pO2 Sodium Potassium Chloride Carbon Dioxide BUN Creatinine Glucose POC Glucose 155 H 186 H Calcium Phosphorus Magnesium C-Reactive Protein Total Protein Albumin Triglycerides HDL Cholesterol Urine WBC (Auto) 25.0 H Urine Creatinine Rheumatoid Factor Complement C4 Crossmatch 09/09/16 09/09/16 09/10/16 17:33 23:13 05:09 WBC RBC Hgb Hct MCV MCH RDW Plt Count Lymph % (Auto) [place] # Seg Neutrophils % Seg Neuts % (Manual) Lymphocytes % (Manual) Seg Neutrophils # Seg Neutrophils # Man Lymphocytes # (Manual) Monocytes # (Manual) Fibrinogen Factor V Activity POC ABG pH POC ABG pCO2 POC ABG pO2 74 L Sodium Potassium Chloride Carbon Dioxide BUN Creatinine Glucose POC Glucose 211 H 215 H Calcium Phosphorus Magnesium C-Reactive Protein Total Protein Albumin Triglycerides HDL Cholesterol Urine WBC (Auto) Urine Creatinine Rheumatoid Factor Complement C4 Crossmatch 09/10/16 09/10/16 09/10/16 05:17 05:17 11:31 WBC 15.8 H RBC 3.25 L Hgb 7.3 L Hct 22.9 L MCV 71 L MCH 23 L RDW 18.4 H Plt Count Lymph % (Auto) [place] # Seg Neutrophils % Seg Neuts % (Manual) 91.0 H Lymphocytes % (Manual) 4.0 L Seg Neutrophils # Seg Neutrophils # Man 14.4 H Lymphocytes # (Manual) 0.6 L Monocytes # (Manual) Fibrinogen Factor V Activity POC ABG pH POC ABG pCO2 POC ABG pO2 Sodium Potassium Chloride Carbon Dioxide 21 L BUN 93 H Creatinine 2.9 H Glucose 146 H POC Glucose 188 H Calcium 8.1 L Phosphorus Magnesium C-Reactive Protein Total Protein Albumin Triglycerides HDL Cholesterol Urine WBC (Auto) Urine Creatinine Rheumatoid Factor Complement C4 Crossmatch 09/10/16 09/10/16 09/10/16 13:17 17:20 23:32 WBC RBC Hgb Hct MCV MCH RDW Plt Count Lymph % (Auto) [place] # Seg Neutrophils % Seg Neuts % (Manual) Lymphocytes % (Manual) Seg Neutrophils # Seg Neutrophils # Man Lymphocytes # (Manual) Monocytes # (Manual) Fibrinogen Factor V Activity POC ABG pH POC ABG pCO2 POC ABG pO2 Sodium Potassium Chloride Carbon Dioxide BUN Creatinine Glucose POC Glucose 199 H 186 H Calcium Phosphorus Magnesium C-Reactive Protein Total Protein Albumin Triglycerides HDL Cholesterol Urine WBC (Auto) Urine Creatinine Rheumatoid Factor Complement C4 Crossmatch See Detail 09/11/16 09/11/16 09/11/16 05:10 05:10 05:17 WBC 28.4 H RBC Hgb 9.2 L Hct 29.3 L D MCV 73 L MCH 23 L RDW 18.9 H Plt Count 452 H Lymph % (Auto) [place] # Seg Neutrophils % Seg Neuts % (Manual) 89.5 H Lymphocytes % (Manual) 2.0 L Seg Neutrophils # Seg Neutrophils # Man 25.4 H Lymphocytes # (Manual) 0.6 L Monocytes # (Manual) 1.3 H Fibrinogen Factor V Activity POC ABG pH POC ABG pCO2 POC ABG pO2 Sodium 136 L Potassium Chloride Carbon Dioxide 18 L BUN 107 H Creatinine 2.6 H Glucose 187 H POC Glucose 230 H Calcium 8.3 L Phosphorus Magnesium C-Reactive Protein Total Protein Albumin Triglycerides HDL Cholesterol Urine WBC (Auto) Urine Creatinine Rheumatoid Factor Complement C4 Crossmatch 09/11/16 09/11/16 09/11/16 05:55 12:02 17:32 WBC RBC Hgb Hct MCV MCH RDW Plt Count Lymph % (Auto) [place] # Seg Neutrophils % Seg Neuts % (Manual) Lymphocytes % (Manual) Seg Neutrophils # Seg Neutrophils # Man Lymphocytes # (Manual) Monocytes # (Manual) Fibrinogen Factor V Activity POC ABG pH POC ABG pCO2 33.8 L POC ABG pO2 Sodium Potassium Chloride Carbon Dioxide BUN Creatinine Glucose POC Glucose 191 H 239 H Calcium Phosphorus Magnesium C-Reactive Protein Total Protein Albumin Triglycerides HDL Cholesterol Urine WBC (Auto) Urine Creatinine Rheumatoid Factor Complement C4 Crossmatch 09/11/16 09/12/16 09/12/16 23:52 05:09 05:32 WBC RBC Hgb Hct MCV MCH RDW Plt Count Lymph % (Auto) [place] # Seg Neutrophils % Seg Neuts % (Manual) Lymphocytes % (Manual) Seg Neutrophils # Seg Neutrophils # Man Lymphocytes # (Manual) Monocytes # (Manual) Fibrinogen Factor V Activity POC ABG pH POC ABG pCO2 34.6 L POC ABG pO2 Sodium Potassium Chloride Carbon Dioxide BUN Creatinine Glucose POC Glucose 265 H 184 H Calcium Phosphorus Magnesium C-Reactive Protein Total Protein Albumin Triglycerides HDL Cholesterol Urine WBC (Auto) Urine Creatinine Rheumatoid Factor Complement C4 Crossmatch 09/12/16 09/12/16 09/12/16 06:45 06:45 07:22 WBC 31.7 H RBC 3.54 L Hgb 8.3 L Hct 25.9 L MCV 73 L MCH 23 L RDW 18.9 H Plt Count Lymph % (Auto) [place] # Seg Neutrophils % Seg Neuts % (Manual) 88.5 H Lymphocytes % (Manual) 4.5 L Seg Neutrophils # Seg Neutrophils # Man 28.1 H Lymphocytes # (Manual) Monocytes # (Manual) 1.0 H Fibrinogen Factor V Activity POC ABG pH POC ABG pCO2 POC ABG pO2 Sodium Potassium Chloride Carbon Dioxide 20 L BUN 115 H Creatinine 2.7 H Glucose 165 H POC Glucose Calcium 8.0 L Phosphorus Magnesium C-Reactive Protein Total Protein Albumin Triglycerides 217 H HDL Cholesterol Urine WBC (Auto) Urine Creatinine Rheumatoid Factor Complement C4 Crossmatch 09/12/16 09/12/16 09/12/16 07:22 12:21 16:51 WBC RBC Hgb Hct MCV MCH RDW Plt Count Lymph % (Auto) [place] # Seg Neutrophils % Seg Neuts % (Manual) Lymphocytes % (Manual) Seg Neutrophils # Seg Neutrophils # Man Lymphocytes # (Manual) Monocytes # (Manual) Fibrinogen Factor V Activity POC ABG pH POC ABG pCO2 POC ABG pO2 Sodium Potassium Chloride Carbon Dioxide BUN Creatinine Glucose POC Glucose 224 H 169 H Calcium Phosphorus Magnesium C-Reactive Protein 1.70 H Total Protein Albumin Triglycerides HDL Cholesterol Urine WBC (Auto) Urine Creatinine Rheumatoid Factor Complement C4 Crossmatch 09/12/16 09/13/16 09/13/16 23:28 04:00 04:00 WBC 45.0 H* RBC Hgb 9.4 L Hct MCV 75 L MCH 23 L RDW 19.0 H Plt Count 470 H Lymph % (Auto) [place] # Seg Neutrophils % Seg Neuts % (Manual) 89.0 H Lymphocytes % (Manual) 5.0 L Seg Neutrophils # Seg Neutrophils # Man 40.1 H Lymphocytes # (Manual) Monocytes # (Manual) Fibrinogen Factor V Activity POC ABG pH POC ABG pCO2 POC ABG pO2 Sodium Potassium Chloride Carbon Dioxide 20 L BUN 116 H Creatinine 3.0 H Glucose 172 H POC Glucose 150 H Calcium Phosphorus Magnesium C-Reactive Protein Total Protein 6.2 L Albumin 2.9 L Triglycerides HDL Cholesterol Urine WBC (Auto) Urine Creatinine Rheumatoid Factor Complement C4 Crossmatch Chest x-ray: image reviewed Allied health notes reviewed: RT
[2016-09-13] MEDS: APRESOLINE IV PRN (09:29)
[2016-09-13] MEDS: PLAVIX FEEDTUBE SCH (09:35)
[2016-09-13] MEDS: ASPIRIN PO SCH (09:35)
[2016-09-13] MEDS: PEPCID FEEDTUBE SCH (09:35)
[2016-09-13] MEDS: fentaNYL DRIP Premix 2,000 MCG/100 ML BAG IV SCH ×2 (09:50→17:29)
--- NOTE | 2016-09-13 11:13 | Progress Note ---
Assessment and Plan 46 YO F Hx Dm2/HTN/asthma/CKD/anxiety last well 09/02 @ 11:40 PM p/w eyes open, R facial droop and ? aphasia but then in CT pt laughing w/o facial droop. Tele neuro NIHSS 8. Her BP was 200s/100s and eventually family consented to tPA after initial declining but tpa infusion stopped after 5 mins d/t refractory HTN. Since then she has been in ICU intubated and agitated requiring sedation. On exam pt w/ depressed level of arousal, poor concentration, paucity of speech not following commands and withdraws from pain less briskly on R hemibody. CTH on admit chronic L thalamic ? lacune and L > R ? gliosis but poor image. f/u CTH 09/07 reveals large L MCA superior and inferior division infarct but no ICH or midline shift/compression of brain structures. UDS + Methadone/Barbs/THC. CDs neg. TTE neg.LDL 126. TSH/Nh4 neg. f/u CTH 09/08 continued evolution but no midline shift or ICH. MRI Brain 09/08 reveals multifocal stroke L MCA & L MCA/ ORE PUNCHER watershed and also R > L cerebellum w/ 2 mm midlin shift. MRA Head confirms L M2/M3 occlusion. PRINCE neg. f/u CTH 09/11 stable. POSITIVE SEROLOGIES: RF, Fibrinogen, ESR; NEG serologies: RPR, Coags, Protein C/S Profile, AT3, HIV, Complement, Scl-70, anti-centromere Ab, Anti-Ro (SSA)/Anti-La (SSB), Antiproteinase 3, CRP unimpressive Plan and Recommendation: 1. Telemetry bed w/ Q4 hour neuro checks 2. 30 day ambulatory Tele monitor ? pAFib 3. Stroke in [place] Eval: VDRL, Hypercoag screen-P, Factor V Leiden, RVVT or APLAbs, Beta-2 GP Ab, Prothrombin gene [id number] mutation, MTHFR C677T, TYSON-1, SAHIL , Lactic Acid, Homocysteine, Cryoglobulin, ANCA,, CATHIE, Lipoprotein A 4. Can lower MAPs by 10-15% daily to reach goal SBP 120-160 as permissive HTN period complete 5. Secondary stroke prevention: ASA 325mg Daily & upgrade to full dose statin therapy (Crestor 20mg or 40mg OR Lipitor 40mg or 80mg Daily OR Zocor 40mg QDay) for goal LDL < 70. No firm indication at this point for therapeutic anticoagulation as pt has not had AFib captured on telemetry monitoring. 6. F/E/N: isotonic IVF prn, prn replete, bedside speech/swallow eval prior to PO intake. Pt will likely need PEG/Trach/LTAC 7. DVT Prophylaxis 8. Stroke education, PT/OT/Speech Therapy consults, CM evaluation 9. 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 Objective - Vital Sign Vital Signs - 12hr 09/12/16 09/12/16 09/12/16 23:30 23:41 23:46 Temperature 99.0 F Pulse Rate 129 H 120 H Respiratory 18 Rate Blood Pressure 138/69 138/69 O2 Sat by Pulse 100 100 Oximetry 09/13/16 09/13/16 09/13/16 00:00 00:30 01:00 Temperature Pulse Rate 118 H 112 H 107 H Respiratory 18 18 18 Rate Blood Pressure 129/63 120/64 123/65 O2 Sat by Pulse 99 100 100 Oximetry 09/13/16 09/13/16 09/13/16 01:30 02:00 02:30 Temperature Pulse Rate 110 H 112 H 113 H Respiratory 18 18 18 Rate Blood Pressure 122/62 125/75 169/93 O2 Sat by Pulse 99 99 100 Oximetry 09/13/16 09/13/16 09/13/16 03:00 03:30 03:49 Temperature Pulse Rate 105 H 143 H 154 H Respiratory 18 20 Rate Blood Pressure 124/74 176/122 176/122 O2 Sat by Pulse 100 99 100 Oximetry 09/13/16 09/13/16 09/13/16 04:00 04:01 04:31 Temperature 98.7 F Pulse Rate 157 H 153 H Respiratory 170 H 19 16 Rate Blood Pressure 191/110 253/131 O2 Sat by Pulse 99 98 98 Oximetry 09/13/16 09/13/16 09/13/16 05:01 05:30 06:00 Temperature Pulse Rate 175 H 187 H 120 H Respiratory 19 18 18 Rate Blood Pressure 178/102 184/96 138/90 O2 Sat by Pulse Oximetry 09/13/16 09/13/16 09/13/16 06:04 06:15 06:30 Temperature Pulse Rate 180 H 178 H 126 H Respiratory 18 Rate Blood Pressure 184/96 138/90 207/128 O2 Sat by Pulse Oximetry 09/13/16 09/13/16 09/13/16 07:00 07:30 08:00 Temperature 99.1 F Pulse Rate 119 H 113 H 117 H Respiratory 18 18 18 Rate Blood Pressure 220/94 174/118 162/116 O2 Sat by Pulse 98 Oximetry 09/13/16 09/13/16 09/13/16 08:15 08:30 09:01 Temperature Pulse Rate 122 H 120 H 130 H Respiratory 18 18 Rate Blood Pressure 205/130 185/108 206/140 O2 Sat by Pulse 99 97 98 Oximetry 09/13/16 09/13/16 09:07 10:52 Temperature Pulse Rate 126 H 109 H Respiratory Rate Blood Pressure 185/108 151/82 O2 Sat by Pulse 100 Oximetry - General Apperance Constitutional: comfortable, acutely ill - EENT EENT: ATNC, PERRL, mucous membranes dry - Respiratory Respiratory: chest non-tender, no respiratory distress, decreased breath sounds - Cardiovascular Cardiovascular: regular rate Extremities: no peripheral edema bilat, no clubbing, cyanosis, no inflammation, no ischemia or petechiae - Gastrointestinal Gastrointestinal: normoactive bowel sounds, soft, non-distended - Integumentary Integumentary: normal - Neurologic Cranial nerve examination: PERRL, EOMI, V1/V2/V3 grossly intact, intact, Intact Vestibulo-ocular r, intact corneal reflex, facial droop (on R) Speech examination: other (no speech, not followign commands) Motor examination - right side: 3/5: biceps, triceps, wrist flexion, wrist extension, senior pricing analyst, hip flexors, knee extensors, dorsiflexion, toe extension (EHL) , plantarflexion Motor examination - left side: 4/5: biceps, triceps, wrist flexion, wrist extension, senior pricing analyst, hip flexors, knee extensors, dorsiflexion, toe extension (EHL) , plantarflexion - Laboratory Findings CBC and BMP: 09/13/16 04:00 09/13/16 04:00 Abnormal Lab Findings: Abnormal Labs 09/03/16 09/03/16 09/03/16 12:12 15:07 16:20 WBC RBC Hgb Hct MCV MCH RDW Plt Count Lymph % (Auto) Craig # Seg Neutrophils % Seg Neuts % (Manual) Lymphocytes % (Manual) Seg Neutrophils # Seg Neutrophils # Man Lymphocytes # (Manual) Monocytes # (Manual) Fibrinogen Factor V Activity POC ABG pH 7.452 H POC ABG pCO2 POC ABG pO2 Sodium Potassium Chloride Carbon Dioxide BUN Creatinine Glucose POC Glucose 178 H Calcium Phosphorus 2.20 L Magnesium 1.60 L C-Reactive Protein Total Protein Albumin Triglycerides HDL Cholesterol Urine WBC (Auto) Urine Creatinine Rheumatoid Factor Complement C4 Crossmatch 09/03/16 09/03/16 09/03/16 17:57 17:58 23:50 WBC RBC Hgb Hct MCV MCH RDW Plt Count Lymph % (Auto) Craig # Seg Neutrophils % Seg Neuts % (Manual) Lymphocytes % (Manual) Seg Neutrophils # Seg Neutrophils # Man Lymphocytes # (Manual) Monocytes # (Manual) Fibrinogen Factor V Activity POC ABG pH POC ABG pCO2 POC ABG pO2 Sodium Potassium Chloride Carbon Dioxide BUN Creatinine Glucose POC Glucose 162 H 145 H Calcium Phosphorus 2.30 L Magnesium C-Reactive Protein Total Protein Albumin Triglycerides HDL Cholesterol Urine WBC (Auto) Urine Creatinine Rheumatoid Factor Complement C4 Crossmatch 09/04/16 09/04/16 09/04/16 03:31 03:31 05:42 WBC RBC Hgb 9.7 L D Hct MCV 72 L MCH 23 L RDW 17.5 H Plt Count Lymph % (Auto) 11.1 L Craig # Seg Neutrophils % 84.3 H Seg Neuts % (Manual) Lymphocytes % (Manual) Seg Neutrophils # 8.9 H Seg Neutrophils # Man Lymphocytes # (Manual) Monocytes # (Manual) Fibrinogen Factor V Activity POC ABG pH POC ABG pCO2 POC ABG pO2 Sodium 135 L Potassium 2.9 L* Chloride 97.2 L Carbon Dioxide 19 L BUN Creatinine 1.7 H Glucose 170 H POC Glucose 152 H Calcium Phosphorus Magnesium C-Reactive Protein Total Protein Albumin Triglycerides 160 H HDL Cholesterol 31 L Urine WBC (Auto) Urine Creatinine Rheumatoid Factor Complement C4 Crossmatch 09/04/16 09/04/16 09/04/16 11:34 17:46 23:29 WBC RBC Hgb Hct MCV MCH RDW Plt Count Lymph % (Auto) Craig # Seg Neutrophils % Seg Neuts % (Manual) Lymphocytes % (Manual) Seg Neutrophils # Seg Neutrophils # Man Lymphocytes # (Manual) Monocytes # (Manual) Fibrinogen Factor V Activity POC ABG pH POC ABG pCO2 POC ABG pO2 Sodium Potassium Chloride Carbon Dioxide BUN Creatinine Glucose POC Glucose 165 H 210 H 139 H Calcium Phosphorus Magnesium C-Reactive Protein Total Protein Albumin Triglycerides HDL Cholesterol Urine WBC (Auto) Urine Creatinine Rheumatoid Factor Complement C4 Crossmatch 09/05/16 09/05/16 09/05/16 04:05 04:05 05:38 WBC RBC Hgb Hct MCV 76 L D MCH 23 L RDW 17.8 H Plt Count Lymph % (Auto) Craig # Seg Neutrophils % Seg Neuts % (Manual) Lymphocytes % (Manual) Seg Neutrophils # Seg Neutrophils # Man Lymphocytes # (Manual) Monocytes # (Manual) Fibrinogen Factor V Activity POC ABG pH POC ABG pCO2 POC ABG pO2 Sodium 134 L Potassium Chloride Carbon Dioxide 18 L BUN Creatinine 1.8 H Glucose 192 H POC Glucose 175 H Calcium Phosphorus Magnesium C-Reactive Protein Total Protein Albumin Triglycerides HDL Cholesterol Urine WBC (Auto) Urine Creatinine Rheumatoid Factor Complement C4 Crossmatch 09/05/16 09/05/16 09/05/16 11:38 17:48 23:22 WBC RBC Hgb Hct MCV MCH RDW Plt Count Lymph % (Auto) Craig # Seg Neutrophils % Seg Neuts % (Manual) Lymphocytes % (Manual) Seg Neutrophils # Seg Neutrophils # Man Lymphocytes # (Manual) Monocytes # (Manual) Fibrinogen Factor V Activity POC ABG pH POC ABG pCO2 POC ABG pO2 Sodium Potassium Chloride Carbon Dioxide BUN Creatinine Glucose POC Glucose 164 H 186 H 195 H Calcium Phosphorus Magnesium C-Reactive Protein Total Protein Albumin Triglycerides HDL Cholesterol Urine WBC (Auto) Urine Creatinine Rheumatoid Factor Complement C4 Crossmatch 09/06/16 09/06/16 09/06/16 04:12 05:59 07:32 WBC RBC Hgb Hct MCV MCH RDW Plt Count Lymph % (Auto) Craig # Seg Neutrophils % Seg Neuts % (Manual) Lymphocytes % (Manual) Seg Neutrophils # Seg Neutrophils # Man Lymphocytes # (Manual) Monocytes # (Manual) Fibrinogen Factor V Activity POC ABG pH 7.514 H POC ABG pCO2 29.1 L POC ABG pO2 72 L Sodium 133 L Potassium 3.4 L Chloride 94.9 L Carbon Dioxide 19 L BUN 30 H Creatinine 2.1 H Glucose 139 H POC Glucose 146 H Calcium Phosphorus Magnesium C-Reactive Protein Total Protein Albumin Triglycerides HDL Cholesterol Urine WBC (Auto) Urine Creatinine Rheumatoid Factor Complement C4 Crossmatch 09/06/16 09/06/16 09/06/16 11:57 17:58 19:02 WBC RBC Hgb Hct MCV MCH RDW Plt Count Lymph % (Auto) Craig # Seg Neutrophils % Seg Neuts % (Manual) Lymphocytes % (Manual) Seg Neutrophils # Seg Neutrophils # Man Lymphocytes # (Manual) Monocytes # (Manual) Fibrinogen Factor V Activity POC ABG pH 7.465 H POC ABG pCO2 32.0 L POC ABG pO2 Sodium Potassium Chloride Carbon Dioxide BUN Creatinine Glucose POC Glucose 165 H 160 H Calcium Phosphorus Magnesium C-Reactive Protein Total Protein Albumin Triglycerides HDL Cholesterol Urine WBC (Auto) Urine Creatinine Rheumatoid Factor Complement C4 Crossmatch 09/06/16 09/07/16 09/07/16 23:45 02:47 02:47 WBC RBC Hgb Hct MCV MCH RDW Plt Count Lymph % (Auto) Craig # Seg Neutrophils % Seg Neuts % (Manual) Lymphocytes % (Manual) Seg Neutrophils # Seg Neutrophils # Man Lymphocytes # (Manual) Monocytes # (Manual) Fibrinogen Factor V Activity POC ABG pH POC ABG pCO2 POC ABG pO2 Sodium Potassium Chloride Carbon Dioxide BUN Creatinine Glucose POC Glucose 204 H Calcium Phosphorus Magnesium C-Reactive Protein Total Protein Albumin Triglycerides HDL Cholesterol Urine WBC (Auto) 68.0 H Urine Creatinine 106.1 H Rheumatoid Factor Complement C4 Crossmatch 09/07/16 09/07/16 09/07/16 04:50 06:19 06:39 WBC RBC Hgb Hct MCV MCH RDW Plt Count Lymph % (Auto) Craig # Seg Neutrophils % Seg Neuts % (Manual) Lymphocytes % (Manual) Seg Neutrophils # Seg Neutrophils # Man Lymphocytes # (Manual) Monocytes # (Manual) Fibrinogen Factor V Activity POC ABG pH 7.457 H POC ABG pCO2 32.1 L POC ABG pO2 76 L Sodium 132 L Potassium Chloride 94.7 L Carbon Dioxide BUN 53 H Creatinine 2.9 H Glucose 151 H POC Glucose 149 H Calcium Phosphorus Magnesium C-Reactive Protein Total Protein Albumin Triglycerides HDL Cholesterol Urine WBC (Auto) Urine Creatinine Rheumatoid Factor Complement C4 Crossmatch 09/07/16 09/07/16 09/07/16 09:20 11:43 11:43 WBC 19.4 H RBC Hgb 8.3 L Hct 26.4 L D MCV 72 L D MCH 22 L RDW 17.9 H Plt Count Lymph % (Auto) 8.5 L Craig # 1.0 H Seg Neutrophils % 85.8 H Seg Neuts % (Manual) Lymphocytes % (Manual) Seg Neutrophils # 16.6 H Seg Neutrophils # Man Lymphocytes # (Manual) Monocytes # (Manual) Fibrinogen Factor V Activity POC ABG pH POC ABG pCO2 POC ABG pO2 Sodium 134 L Potassium Chloride 97.2 L Carbon Dioxide 20 L BUN 58 H Creatinine 2.9 H Glucose 147 H POC Glucose Calcium Phosphorus 2.40 L Magnesium 2.40 H C-Reactive Protein Total Protein 5.8 L Albumin 2.2 L Triglycerides HDL Cholesterol Urine WBC (Auto) Urine Creatinine Rheumatoid Factor Complement C4 58 H Crossmatch 09/07/16 09/07/16 09/07/16 11:50 16:00 17:31 WBC RBC Hgb Hct MCV MCH RDW Plt Count Lymph % (Auto) Craig # Seg Neutrophils % Seg Neuts % (Manual) Lymphocytes % (Manual) Seg Neutrophils # Seg Neutrophils # Man Lymphocytes # (Manual) Monocytes # (Manual) Fibrinogen Factor V Activity POC ABG pH POC ABG pCO2 POC ABG pO2 158 H Sodium Potassium Chloride Carbon Dioxide BUN Creatinine Glucose POC Glucose 175 H Calcium Phosphorus Magnesium C-Reactive Protein Total Protein Albumin Triglycerides HDL Cholesterol Urine WBC (Auto) Urine Creatinine 66.3 H Rheumatoid Factor Complement C4 Crossmatch 09/07/16 09/08/16 09/08/16 23:50 05:46 06:18 WBC 17.8 H RBC 3.58 L Hgb 8.1 L Hct 25.5 L MCV 71 L MCH 23 L RDW 18.4 H Plt Count Lymph % (Auto) Craig # Seg Neutrophils % Seg Neuts % (Manual) 92.0 H Lymphocytes % (Manual) 6.0 L Seg Neutrophils # Seg Neutrophils # Man 16.4 H Lymphocytes # (Manual) 1.1 L Monocytes # (Manual) Fibrinogen Factor V Activity POC ABG pH POC ABG pCO2 34.3 L POC ABG pO2 71 L Sodium Potassium Chloride Carbon Dioxide BUN Creatinine Glucose POC Glucose 216 H Calcium Phosphorus Magnesium C-Reactive Protein Total Protein Albumin Triglycerides HDL Cholesterol Urine WBC (Auto) Urine Creatinine Rheumatoid Factor Complement C4 Crossmatch 09/08/16 09/08/16 09/08/16 06:18 06:51 10:55 WBC RBC Hgb Hct MCV MCH RDW Plt Count Lymph % (Auto) Craig # Seg Neutrophils % Seg Neuts % (Manual) Lymphocytes % (Manual) Seg Neutrophils # Seg Neutrophils # Man Lymphocytes # (Manual) Monocytes # (Manual) Fibrinogen Factor V Activity POC ABG pH POC ABG pCO2 POC ABG pO2 Sodium 133 L Potassium Chloride 96.9 L Carbon Dioxide 20 L BUN 63 H Creatinine 2.7 H Glucose 195 H POC Glucose 204 H 169 H Calcium Phosphorus Magnesium C-Reactive Protein Total Protein Albumin Triglycerides HDL Cholesterol Urine WBC (Auto) Urine Creatinine Rheumatoid Factor Complement C4 Crossmatch 09/08/16 09/08/16 09/08/16 11:48 11:48 11:48 WBC RBC Hgb Hct MCV MCH RDW Plt Count Lymph % (Auto) Craig # Seg Neutrophils % Seg Neuts % (Manual) Lymphocytes % (Manual) Seg Neutrophils # Seg Neutrophils # Man Lymphocytes # (Manual) Monocytes # (Manual) Fibrinogen 750 H Factor V Activity POC ABG pH POC ABG pCO2 POC ABG pO2 Sodium Potassium Chloride Carbon Dioxide BUN Creatinine Glucose POC Glucose Calcium Phosphorus Magnesium C-Reactive Protein 15.70 H Total Protein Albumin Triglycerides HDL Cholesterol Urine WBC (Auto) Urine Creatinine Rheumatoid Factor 24 H Complement C4 Crossmatch 09/08/16 09/08/16 09/09/16 15:35 18:25 00:24 WBC RBC Hgb Hct MCV MCH RDW Plt Count Lymph % (Auto) Craig # Seg Neutrophils % Seg Neuts % (Manual) Lymphocytes % (Manual) Seg Neutrophils # Seg Neutrophils # Man Lymphocytes # (Manual) Monocytes # (Manual) Fibrinogen Factor V Activity 182 H POC ABG pH POC ABG pCO2 POC ABG pO2 Sodium Potassium Chloride Carbon Dioxide BUN Creatinine Glucose POC Glucose 184 H 216 H Calcium Phosphorus Magnesium C-Reactive Protein Total Protein Albumin Triglycerides HDL Cholesterol Urine WBC (Auto) Urine Creatinine Rheumatoid Factor Complement C4 Crossmatch 09/09/16 09/09/16 09/09/16 03:00 03:00 04:04 WBC 27.9 H RBC Hgb 8.7 L Hct 28.1 L MCV 72 L MCH 22 L RDW 18.4 H Plt Count 485 H Lymph % (Auto) Craig # Seg Neutrophils % Seg Neuts % (Manual) 77.0 H Lymphocytes % (Manual) 9.0 L Seg Neutrophils # Seg Neutrophils # Man 21.5 H Lymphocytes # (Manual) Monocytes # (Manual) 2.0 H Fibrinogen Factor V Activity POC ABG pH POC ABG pCO2 POC ABG pO2 121 H Sodium 135 L Potassium Chloride 96.3 L Carbon Dioxide 21 L BUN 83 H Creatinine 3.0 H Glucose 135 H POC Glucose Calcium Phosphorus Magnesium C-Reactive Protein Total Protein Albumin Triglycerides HDL Cholesterol Urine WBC (Auto) Urine Creatinine Rheumatoid Factor Complement C4 Crossmatch 09/09/16 09/09/16 09/09/16 05:41 11:55 14:13 WBC RBC Hgb Hct MCV MCH RDW Plt Count Lymph % (Auto) Craig # Seg Neutrophils % Seg Neuts % (Manual) Lymphocytes % (Manual) Seg Neutrophils # Seg Neutrophils # Man Lymphocytes # (Manual) Monocytes # (Manual) Fibrinogen Factor V Activity POC ABG pH POC ABG pCO2 POC ABG pO2 Sodium Potassium Chloride Carbon Dioxide BUN Creatinine Glucose POC Glucose 155 H 186 H Calcium Phosphorus Magnesium C-Reactive Protein Total Protein Albumin Triglycerides HDL Cholesterol Urine WBC (Auto) 25.0 H Urine Creatinine Rheumatoid Factor Complement C4 Crossmatch 09/09/16 09/09/16 09/10/16 17:33 23:13 05:09 WBC RBC Hgb Hct MCV MCH RDW Plt Count Lymph % (Auto) Craig # Seg Neutrophils % Seg Neuts % (Manual) Lymphocytes % (Manual) Seg Neutrophils # Seg Neutrophils # Man Lymphocytes # (Manual) Monocytes # (Manual) Fibrinogen Factor V Activity POC ABG pH POC ABG pCO2 POC ABG pO2 74 L Sodium Potassium Chloride Carbon Dioxide BUN Creatinine Glucose POC Glucose 211 H 215 H Calcium Phosphorus Magnesium C-Reactive Protein Total Protein Albumin Triglycerides HDL Cholesterol Urine WBC (Auto) Urine Creatinine Rheumatoid Factor Complement C4 Crossmatch 09/10/16 09/10/16 09/10/16 05:17 05:17 11:31 WBC 15.8 H RBC 3.25 L Hgb 7.3 L Hct 22.9 L MCV 71 L MCH 23 L RDW 18.4 H Plt Count Lymph % (Auto) Craig # Seg Neutrophils % Seg Neuts % (Manual) 91.0 H Lymphocytes % (Manual) 4.0 L Seg Neutrophils # Seg Neutrophils # Man 14.4 H Lymphocytes # (Manual) 0.6 L Monocytes # (Manual) Fibrinogen Factor V Activity POC ABG pH POC ABG pCO2 POC ABG pO2 Sodium Potassium Chloride Carbon Dioxide 21 L BUN 93 H Creatinine 2.9 H Glucose 146 H POC Glucose 188 H Calcium 8.1 L Phosphorus Magnesium C-Reactive Protein Total Protein Albumin Triglycerides HDL Cholesterol Urine WBC (Auto) Urine Creatinine Rheumatoid Factor Complement C4 Crossmatch 09/10/16 09/10/16 09/10/16 13:17 17:20 23:32 WBC RBC Hgb Hct MCV MCH RDW Plt Count Lymph % (Auto) Craig # Seg Neutrophils % Seg Neuts % (Manual) Lymphocytes % (Manual) Seg Neutrophils # Seg Neutrophils # Man Lymphocytes # (Manual) Monocytes # (Manual) Fibrinogen Factor V Activity POC ABG pH POC ABG pCO2 POC ABG pO2 Sodium Potassium Chloride Carbon Dioxide BUN Creatinine Glucose POC Glucose 199 H 186 H Calcium Phosphorus Magnesium C-Reactive Protein Total Protein Albumin Triglycerides HDL Cholesterol Urine WBC (Auto) Urine Creatinine Rheumatoid Factor Complement C4 Crossmatch See Detail 09/11/16 09/11/16 09/11/16 05:10 05:10 05:17 WBC 28.4 H RBC Hgb 9.2 L Hct 29.3 L D MCV 73 L MCH 23 L RDW 18.9 H Plt Count 452 H Lymph % (Auto) Craig # Seg Neutrophils % Seg Neuts % (Manual) 89.5 H Lymphocytes % (Manual) 2.0 L Seg Neutrophils # Seg Neutrophils # Man 25.4 H Lymphocytes # (Manual) 0.6 L Monocytes # (Manual) 1.3 H Fibrinogen Factor V Activity POC ABG pH POC ABG pCO2 POC ABG pO2 Sodium 136 L Potassium Chloride Carbon Dioxide 18 L BUN 107 H Creatinine 2.6 H Glucose 187 H POC Glucose 230 H Calcium 8.3 L Phosphorus Magnesium C-Reactive Protein Total Protein Albumin Triglycerides HDL Cholesterol Urine WBC (Auto) Urine Creatinine Rheumatoid Factor Complement C4 Crossmatch 09/11/16 09/11/16 09/11/16 05:55 12:02 17:32 WBC RBC Hgb Hct MCV MCH RDW Plt Count Lymph % (Auto) Craig # Seg Neutrophils % Seg Neuts % (Manual) Lymphocytes % (Manual) Seg Neutrophils # Seg Neutrophils # Man Lymphocytes # (Manual) Monocytes # (Manual) Fibrinogen Factor V Activity POC ABG pH POC ABG pCO2 33.8 L POC ABG pO2 Sodium Potassium Chloride Carbon Dioxide BUN Creatinine Glucose POC Glucose 191 H 239 H Calcium Phosphorus Magnesium C-Reactive Protein Total Protein Albumin Triglycerides HDL Cholesterol Urine WBC (Auto) Urine Creatinine Rheumatoid Factor Complement C4 Crossmatch 09/11/16 09/12/16 09/12/16 23:52 05:09 05:32 WBC RBC Hgb Hct MCV MCH RDW Plt Count Lymph % (Auto) Craig # Seg Neutrophils % Seg Neuts % (Manual) Lymphocytes % (Manual) Seg Neutrophils # Seg Neutrophils # Man Lymphocytes # (Manual) Monocytes # (Manual) Fibrinogen Factor V Activity POC ABG pH POC ABG pCO2 34.6 L POC ABG pO2 Sodium Potassium Chloride Carbon Dioxide BUN Creatinine Glucose POC Glucose 265 H 184 H Calcium Phosphorus Magnesium C-Reactive Protein Total Protein Albumin Triglycerides HDL Cholesterol Urine WBC (Auto) Urine Creatinine Rheumatoid Factor Complement C4 Crossmatch 09/12/16 09/12/16 09/12/16 06:45 06:45 07:22 WBC 31.7 H RBC 3.54 L Hgb 8.3 L Hct 25.9 L MCV 73 L MCH 23 L RDW 18.9 H Plt Count Lymph % (Auto) Craig # Seg Neutrophils % Seg Neuts % (Manual) 88.5 H Lymphocytes % (Manual) 4.5 L Seg Neutrophils # Seg Neutrophils # Man 28.1 H Lymphocytes # (Manual) Monocytes # (Manual) 1.0 H Fibrinogen Factor V Activity POC ABG pH POC ABG pCO2 POC ABG pO2 Sodium Potassium Chloride Carbon Dioxide 20 L BUN 115 H Creatinine 2.7 H Glucose 165 H POC Glucose Calcium 8.0 L Phosphorus Magnesium C-Reactive Protein Total Protein Albumin Triglycerides 217 H HDL Cholesterol Urine WBC (Auto) Urine Creatinine Rheumatoid Factor Complement C4 Crossmatch 09/12/16 09/12/16 09/12/16 07:22 12:21 16:51 WBC RBC Hgb Hct MCV MCH RDW Plt Count Lymph % (Auto) Craig # Seg Neutrophils % Seg Neuts % (Manual) Lymphocytes % (Manual) Seg Neutrophils # Seg Neutrophils # Man Lymphocytes # (Manual) Monocytes # (Manual) Fibrinogen Factor V Activity POC ABG pH POC ABG pCO2 POC ABG pO2 Sodium Potassium Chloride Carbon Dioxide BUN Creatinine Glucose POC Glucose 224 H 169 H Calcium Phosphorus Magnesium C-Reactive Protein 1.70 H Total Protein Albumin Triglycerides HDL Cholesterol Urine WBC (Auto) Urine Creatinine Rheumatoid Factor Complement C4 Crossmatch 09/12/16 09/13/16 09/13/16 23:28 04:00 04:00 WBC 45.0 H* RBC Hgb 9.4 L Hct MCV 75 L MCH 23 L RDW 19.0 H Plt Count 470 H Lymph % (Auto) Craig # Seg Neutrophils % Seg Neuts % (Manual) 89.0 H Lymphocytes % (Manual) 5.0 L Seg Neutrophils # Seg Neutrophils # Man 40.1 H Lymphocytes # (Manual) Monocytes # (Manual) Fibrinogen Factor V Activity POC ABG pH POC ABG pCO2 POC ABG pO2 Sodium Potassium Chloride Carbon Dioxide 20 L BUN 116 H Creatinine 3.0 H Glucose 172 H POC Glucose 150 H Calcium Phosphorus Magnesium C-Reactive Protein Total Protein 6.2 L Albumin 2.9 L Triglycerides HDL Cholesterol Urine WBC (Auto) Urine Creatinine Rheumatoid Factor Complement C4 Crossmatch
[2016-09-13 13:03] LABS: ANA Screen, IFA Negative (Negative)
[2016-09-13] MEDS: LEVEMIR (NF) SUB-Q SCH (14:35)
[2016-09-13] MEDS: LOPRESSOR PO SCH ×2 (14:44→21:43)
--- NOTE | 2016-09-13 15:36 | Progress Note ---
Subjective Principal diagnosis: Acute CVA; Acute Encephalopathy; Acute Respiratory Failure on MVS Interval history: Patient was seen today for follow-up of multiple renal-related issues No significant change in status, time of evaluation 10:15 in the morning Currently she remains intubated and unresponsive Also getting arterial Doppler for the kidneys Events of 24 hours vital labs into comfort medications were reviewed Social history: Reviewed Family history: Reviewed Allergy: Reviewed Physical examination Vitals: Reviewed HEENT: Oral mucosa moist Neck: Supple no JVD Chest: Bilateral clear to auscultation no crackles rales or wheezes Heart: Regular rate and rhythm S1 and S2 heard Abdomen: Soft nontender no voluntary guarding rigidity rebound Extremity: Minimal edema dry skin Dermatology; dry skin no edema Neurological; patient is not arousable Assessment and plan Renal failure: creatinine is currently stable. Patient does have chronic kidney disease We will await the result of renovascular Doppler,currently being obtained patient may benefit from clonidine patch, minoxidil, titration of medications to keep systolic blood pressure between 140-160 Not a candidate for denys inhibitors angiotensin receptor blockers or Aldactone due to abnormal kidney function and relatively high potassium Avoid hydralazine due to tachycardia Significantly elevated white cell count ? etiology ,seeing infectious disease source could be multifactorial Acute on chronic renal failure current creatinine is around 2.7 baseline around 1.7 Hypernatremia corrected ,to monitor periodically Labile hypertension to follow await the results of renal vascular Doppler Metabolic acidosis better Status post stroke: Currently being followed by neurology Will order for a renal arterial Doppler, as well as Charlie plasma renin level her prognosis appears to be extremely poor Family has been educated about renal related issues Objective - Vital Signs Vital signs: Vital Signs - 12hr 09/13/16 09/13/16 09/13/16 03:49 04:00 04:01 Temperature 98.7 F Pulse Rate 154 H 157 H Respiratory 170 H 19 Rate Blood Pressure 176/122 191/110 O2 Sat by Pulse 100 99 98 Oximetry 09/13/16 09/13/16 09/13/16 04:31 05:01 05:30 Temperature Pulse Rate 153 H 175 H 187 H Respiratory 16 19 18 Rate Blood Pressure 253/131 178/102 184/96 O2 Sat by Pulse 98 Oximetry 09/13/16 09/13/16 09/13/16 06:00 06:04 06:15 Temperature Pulse Rate 120 H 180 H 178 H Respiratory 18 Rate Blood Pressure 138/90 184/96 138/90 O2 Sat by Pulse Oximetry 09/13/16 09/13/16 09/13/16 06:30 07:00 07:30 Temperature Pulse Rate 126 H 119 H 113 H Respiratory 18 18 18 Rate Blood Pressure 207/128 220/94 174/118 O2 Sat by Pulse Oximetry 09/13/16 09/13/16 09/13/16 08:00 08:15 08:30 Temperature 99.1 F Pulse Rate 117 H 122 H 120 H Respiratory 122 H 18 Rate Blood Pressure 162/116 205/130 185/108 O2 Sat by Pulse 99 99 97 Oximetry 09/13/16 09/13/16 09/13/16 09:01 09:07 09:30 Temperature Pulse Rate 130 H 126 H 103 H Respiratory 18 15 Rate Blood Pressure 206/140 185/108 167/96 O2 Sat by Pulse 98 99 Oximetry 09/13/16 09/13/16 09/13/16 10:00 10:30 10:52 Temperature Pulse Rate 103 H 109 H 109 H Respiratory 18 18 Rate Blood Pressure 125/78 151/82 151/82 O2 Sat by Pulse 98 99 100 Oximetry 09/13/16 09/13/16 09/13/16 11:00 11:30 12:00 Temperature Pulse Rate 111 H 113 H 113 H Respiratory 18 18 18 Rate Blood Pressure 164/94 213/103 176/94 O2 Sat by Pulse 99 98 98 Oximetry 09/13/16 09/13/16 09/13/16 12:30 13:00 14:00 Temperature Pulse Rate 97 H 106 H 100 H Respiratory 18 18 Rate Blood Pressure 132/76 163/93 122/72 O2 Sat by Pulse 97 99 100 Oximetry 09/13/16 09/13/16 14:27 14:44 Temperature Pulse Rate 105 H 113 H Respiratory Rate Blood Pressure 126/78 125/83 O2 Sat by Pulse Oximetry - Lab 09/13/16 04:00 09/13/16 04:00 Most recent lab results Calcium 8.5 mg/dL (8.4-10.2) 09/13/16 04:00 Phosphorus 4.30 mg/dL (2.5-4.5) D 09/08/16 06:18 Magnesium 2.40 mg/dL (1.7-2.3) H 09/07/16 11:43 Urine Creatinine 66.3 mg/dL (0.1-20.0) H 09/07/16 16:00 Urine Sodium 22 mEq/L 09/07/16 16:00
--- NOTE | 2016-09-13 16:10 | Consultation ---
History of Present Illness Consult date: 09/13/16 Reason for consult: other (Trach and PEG placement) - History of present illness History of present illness: This is a 46-year-old woman admitted with acute cerebrovascular accident. She is on the ventilator with poor prognosis. We are asked to place a tracheostomy and percutaneous endoscopic gastrostomy tube Past History Past Medical History: diabetes, hypertension, renal failure Past Surgical History: cholecystectomy (per chart review) Social history: other (per chart review, family denied any smoking or alcohol history on admission). denies: smoking, alcohol abuse, prescription drug abuse , IV drug use Family history: hypertension (per chart review) Medications and Allergies Allergies Allergy/AdvReac Type Severity Reaction Status Date / Time No Known Allergies Allergy Verified 04/14/15 06:02 Home Medications Medication Instructions Recorded Confirmed Last Taken Type Acetaminophen [Tylenol Arthritis] 650 mg PO QID PRN #30 tablet.er 02/15/1609/12 Unknown Rx Albuterol Sulfate [Proventil HFA] 6.7 gm INHALATION Q4-6H 02/15/16 09/12/16 History Insulin Glargine [Lantus VIAL] 30 units SQ QHS 02/15/16 09/12/16 02/15/16 History Clonidine HCl [Catapres] 0.3 mg PO TID #90 tablet 06/15/16 09/12/16 Unknown Rx Lisinopril [Zestril] 40 mg PO BID #60 tablet 06/15/16 09/12/16 Unknown Rx Polyethylene Glycol 3350 [Miralax 17 gm PO QDAY PRN #10 packet 06/15/16 Unknown Rx 3350] Albuterol 2 inhalation INHALATION Q4HR PRN 09/12/16 09/12/16 Unknown History AtorvaSTATin [Lipitor] 20 mg PO QHS 09/12/16 09/12/16 Unknown History Flovent 110 MCG/PUFF HFA 1 inhalation INHALATION QHS 09/12/16 09/12/16 Unknown History Furosemide [Lasix] 20 mg PO QDAY 09/12/16 09/12/16 Unknown History HumaLOG VIAL 45 units SUB-Q TID 09/12/16 09/12/16 Unknown History Insulin Aspart [NovoLOG Flexpen] 30 units SUB-Q TID MDD 30 Units 09/12/16 Unknown History Labetalol HCl 300 mg PO BID 09/12/16 09/12/16 Unknown History Spironolactone [Aldactone] 25 mg PO QDAY 09/12/16 09/12/16 Unknown History hydrALAZINE [Apresoline] 25 mg PO BID 09/12/16 09/12/16 Unknown History Active Meds: Active Medications Lipase/Protease/Amylase (Mary Dr 10,500 Unit) 1 each FEEDTUBE PRN PRN PRN Reason: For Clogged Feeding Tube Aspirin (Aspirin) 325 mg PO QDAY [facility] Last Admin: 09/13/16 09:35 Dose: 325 mg Atorvastatin Calcium (Lipitor) 40 mg PO QHS [facility] Last Admin: 09/12/16 22:14 Dose: 40 mg Clonidine HCl (Catapres) 0.3 mg PO Q12H [facility] Last Admin: 09/13/16 09:07 Dose: 0.3 mg Clopidogrel Bisulfate (Plavix) 75 mg FEEDTUBE QDAY [facility] Last Admin: 09/13/16 09:35 Dose: 75 mg Dextrose (D50w (25gm)) 50 gm IV PRN PRN PRN Reason: hypoglycemia Famotidine (Pepcid) 20 mg FEEDTUBE QDAY [facility] Last Admin: 09/13/16 09:35 Dose: 20 mg Haloperidol Lactate (Haldol) 5 mg IV Q6H PRN PRN Reason: Unrespon. to mult. doses BZD's Last Admin: 09/13/16 09:23 Dose: 5 mg Heparin Sodium (Porcine) (Heparin) 5,000 unit SUB-Q Q8HR [facility] Last Admin: 09/13/16 14:33 Dose: 5,000 unit Hydralazine HCl (Apresoline) 10 mg IV Q6H PRN PRN Reason: SBP > 160 Last Admin: 09/11/16 22:05 Dose: 10 mg Hydralazine HCl (Apresoline) 75 mg PO Q8HR [facility] Last Admin: 09/13/16 14:27 Dose: 75 mg Hydrophilic Ointment (Vaseline Lip Therapy) 1 applic TP Q2HR PRN PRN Reason: Dry Lips Fentanyl Citrate (Fentanyl Drip Premix) 2,000 mcg in 100 mls @ 3.775 mls/hr IV TITR AGUSTIN; 1 MCG/KG/HR PRN Reason: Protocol Last Titration: 09/13/16 14:21 Dose: 2.974 mcg/kg/hr, 11.227 mls/hr Propofol (Diprivan 10 Mg/Ml) 1,000 mg in 100 mls @ 2.265 mls/hr IV TITR AGUSTIN; 5 MCG/KG/MIN PRN Reason: Protocol Last Admin: 09/13/16 13:15 Dose: 40 mcg/kg/min, 18.12 mls/hr Levofloxacin/Dextrose (Levaquin 750mg/150ml) 750 mg in 150 mls @ 100 mls/hr IV Q48H AGUSTIN PRN Reason: Protocol Stop: 09/15/16 12:59 Last Admin: 09/12/16 12:40 Dose: 100 mls/hr Nicardipine HCl 50 mg/ Sodium (Chloride) 250 mls @ 25 mls/hr IV TITR AGUSTIN; 5 MG/ HR PRN Reason: Protocol Last Titration: 09/12/16 08:34 Dose: 0 mg/hr, 0 mls/hr Insulin Detemir (Levemir) 5 units SUB-Q Q24H [facility] Last Admin: 09/13/16 14:35 Dose: 5 units Insulin Human Regular (Novolin R) 0 units SUB-Q Q6HR AGUSTIN PRN Reason: Protocol Last Admin: 09/13/16 12:00 Dose: Not Given Labetalol HCl (Normodyne) 20 mg IV Q4H PRN PRN Reason: For BP >160/100 Last Admin: 09/13/16 06:04 Dose: 20 mg Methylprednisolone Sodium Succinate (Solu-Medrol) 40 mg IV Q12H [facility] Last Admin: 09/13/16 14:34 Dose: 40 mg Metoprolol Tartrate (Lopressor) 25 mg PO BID [facility] Last Admin: 09/13/16 14:44 Dose: 25 mg Multi-Ingred Cream/Lotion/Oil/Oint (Artificial Tears Ophth Oint) 1 applic OU Q4HR PRN PRN Reason: Dry Eye(s) Ondansetron HCl (Zofran) 4 mg IV Q8H PRN PRN Reason: N/V unrelieved by Reglan Quetiapine Fumarate (Seroquel) 200 mg PO BID [facility] Last Admin: 09/13/16 09:35 Dose: 200 mg Simple Syrup (Simple Syrup) 30 ml FEEDTUBE PRN PRN PRN Reason: Hypoglycemia Simple Syrup (Simple Syrup) 15 ml FEEDTUBE PRN PRN PRN Reason: Hypoglycemia Sodium Bicarbonate (Sodium Bicarbonate) 325 mg FEEDTUBE PRN PRN PRN Reason: For Clogged Feeding Tube Sodium Chloride (Nacl 0.9% 500 Ml) 1 ml IV DIRECT AGUSTIN Sodium Chloride (Sodium Chloride Flush Syringe 10 Ml) 10 ml IV PRN PRN PRN Reason: LINE FLUSH Review of Systems ROS unobtainable: due to endotracheal tube Exam Vital Signs Temp Pulse Resp BP Pulse Ox 98.4 F 88 18 104/80 98 09/03/16 00:00 09/03/16 00:00 09/03/16 00:00 09/03/16 00:00 09/03/16 00:00 - General physical appearance Positive: other (on the ventilator and unresponsive) - Eyes Negative: icteric - Neck Positive: no masses, trachea midline, no lymphadectomy - Respiratory Positive: clear to auscultation - Cardiovascular Rhythm: regular - Abdomen Abdomen: Present: soft. Absent: tender, distended Results - Labs 09/13/16 04:00 09/13/16 04:00 Abnormal lab results 09/08/16 09/12/16 09/12/16 Range/Units 15:35 12:21 16:51 WBC (4.5-11.0) K/mm3 Hgb (10.1-14.3) gm/dl MCV (79-97) fl MCH (28-32) pg RDW (13.2-15.2) % Plt Count (140-440) K/mm3 Seg Neuts % (Manual) (40.0-70.0) % Lymphocytes % (Manual) (13.4-35.0) % Seg Neutrophils # Man (1.8-7.7) K/mm3 Factor V Activity 182 H (65-150) % Carbon Dioxide (22-30) mmol/L BUN (7-17) mg/dL Creatinine (0.7-1.2) mg/dL Glucose (65-100) mg/dL POC Glucose 224 H 169 H (70-105) Total Protein (6.3-8.2) g/dL Albumin (3.9-5) g/dL 09/12/16 09/13/16 09/13/16 Range/Units 23:28 04:00 04:00 WBC 45.0 H* (4.5-11.0) K/mm3 Hgb 9.4 L (10.1-14.3) gm/dl MCV 75 L (79-97) fl MCH 23 L (28-32) pg RDW 19.0 H (13.2-15.2) % Plt Count 470 H (140-440) K/mm3 Seg Neuts % (Manual) 89.0 H (40.0-70.0) % Lymphocytes % (Manual) 5.0 L (13.4-35.0) % Seg Neutrophils # Man 40.1 H (1.8-7.7) K/mm3 Factor V Activity (65-150) % Carbon Dioxide 20 L (22-30) mmol/L BUN 116 H (7-17) mg/dL Creatinine 3.0 H (0.7-1.2) mg/dL Glucose 172 H (65-100) mg/dL POC Glucose 150 H (70-105) Total Protein 6.2 L (6.3-8.2) g/dL Albumin 2.9 L (3.9-5) g/dL 09/13/16 Range/Units 11:26 WBC (4.5-11.0) K/mm3 Hgb (10.1-14.3) gm/dl MCV (79-97) fl MCH (28-32) pg RDW (13.2-15.2) % Plt Count (140-440) K/mm3 Seg Neuts % (Manual) (40.0-70.0) % Lymphocytes % (Manual) (13.4-35.0) % Seg Neutrophils # Man (1.8-7.7) K/mm3 Factor V Activity (65-150) % Carbon Dioxide (22-30) mmol/L BUN (7-17) mg/dL Creatinine (0.7-1.2) mg/dL Glucose (65-100) mg/dL POC Glucose 140 H (70-105) Total Protein (6.3-8.2) g/dL Albumin (3.9-5) g/dL Diabetes panel 09/13/16 Range/Units 04:00 Sodium 138 (137-145) mmol/L Potassium 5.0 (3.6-5.0) mmol/L Chloride 100.7 (98-107) mmol/L Carbon Dioxide 20 L (22-30) mmol/L BUN 116 H (7-17) mg/dL Creatinine 3.0 H (0.7-1.2) mg/dL Glucose 172 H (65-100) mg/dL Calcium 8.5 (8.4-10.2) mg/dL AST 20 (5-40) units/L ALT 18 (7-56) units/L Alkaline Phosphatase 72 (35-129) units/L Total Protein 6.2 L (6.3-8.2) g/dL Albumin 2.9 L (3.9-5) g/dL Calcium panel 09/13/16 Range/Units 04:00 Calcium 8.5 (8.4-10.2) mg/dL Albumin 2.9 L (3.9-5) g/dL Pituitary panel 09/13/16 Range/Units 04:00 Sodium 138 (137-145) mmol/L Potassium 5.0 (3.6-5.0) mmol/L Chloride 100.7 (98-107) mmol/L Carbon Dioxide 20 L (22-30) mmol/L BUN 116 H (7-17) mg/dL Creatinine 3.0 H (0.7-1.2) mg/dL Glucose 172 H (65-100) mg/dL Calcium 8.5 (8.4-10.2) mg/dL Adrenal panel 09/13/16 Range/Units 04:00 Sodium 138 (137-145) mmol/L Potassium 5.0 (3.6-5.0) mmol/L Chloride 100.7 (98-107) mmol/L Carbon Dioxide 20 L (22-30) mmol/L BUN 116 H (7-17) mg/dL Creatinine 3.0 H (0.7-1.2) mg/dL Glucose 172 H (65-100) mg/dL Calcium 8.5 (8.4-10.2) mg/dL Total Bilirubin 0.30 (0.1-1.2) mg/dL AST 20 (5-40) units/L ALT 18 (7-56) units/L Alkaline Phosphatase 72 (35-129) units/L Total Protein 6.2 L (6.3-8.2) g/dL Albumin 2.9 L (3.9-5) g/dL Assessment and Plan - Patient Problems (1) Acute respiratory failure with hypoxia Current Visit: Yes Status: Acute Plan to address problem: We'll plan on tracheostomy and PEG placement once consent can be obtained from one of the patient's children. We are unable to contact the children today. I have spoken to patient's brother Bebeto who agrees to the procedures but cannot give us the consent. We will need to hold Plavix for 4- 5 days prior to the procedure
--- NOTE | 2016-09-13 19:07 | Consultation ---
History of Present Illness - Reason for Consult Consult date: 09/13/16 Leukocytosis Requesting physician: SANJAY PEACOCK - History of Present Illness Ms. العراقي is a 46-year-old woman with multiple chronic medical problems, including diabetes mellitus, hypertension and chronic kidney disease. She was brought in for evaluation after family noticed an acute onset of aphasia and facial droop. She was found to have a large left MCA CVA. Her blood pressure was markedly elevated and TPA was contraindicated. There was no thrombus visualized on echocardiogram. She has had a steadily increasing WBC count since 09/07/16. She was started empirically on Vancomycin and Rocephin on 09/07/16 for "sepsis" and presumptive aspiration pneumonia. Sputum culture showed light growth of usual leila without excess inflammatory cells. Urine culture was negative. This was broadened to Vancomycin and Zosyn. Since 09/10/16 she has been on empiric Levaquin as well as Solu-Medrol since yesterday. Today, she has a WBC count to 45,000 with 89% neutrophils/ 5% bands. She has had loose BMs, but a Cdiff toxin assay was negative. Blood cultures have been sent today and are in progress. ID consultation is requested for further assessment of leukocytosis. Past History Past Medical History: diabetes, hypertension, renal failure Past Surgical History: cholecystectomy (per chart review) Social history: other (per chart review, family denied any smoking or alcohol history on admission). denies: smoking, alcohol abuse, prescription drug abuse , IV drug use Family history: hypertension (per chart review) Medications and Allergies Allergies Allergy/AdvReac Type Severity Reaction Status Date / Time No Known Allergies Allergy Verified 04/14/15 06:02 Home Medications Medication Instructions Recorded Confirmed Last Taken Type Acetaminophen [Tylenol Arthritis] 650 mg PO QID PRN #30 tablet.er 02/15/1609/12 Unknown Rx Albuterol Sulfate [Proventil HFA] 6.7 gm INHALATION Q4-6H 02/15/16 09/12/16 History Insulin Glargine [Lantus VIAL] 30 units SQ QHS 02/15/16 09/12/16 02/15/16 History Clonidine HCl [Catapres] 0.3 mg PO TID #90 tablet 06/15/16 09/12/16 Unknown Rx Lisinopril [Zestril] 40 mg PO BID #60 tablet 06/15/16 09/12/16 Unknown Rx Polyethylene Glycol 3350 [Miralax 17 gm PO QDAY PRN #10 packet 06/15/16 Unknown Rx 3350] Albuterol 2 inhalation INHALATION Q4HR PRN 09/12/16 09/12/16 Unknown History AtorvaSTATin [Lipitor] 20 mg PO QHS 09/12/16 09/12/16 Unknown History Flovent 110 MCG/PUFF HFA 1 inhalation INHALATION QHS 09/12/16 09/12/16 Unknown History Furosemide [Lasix] 20 mg PO QDAY 09/12/16 09/12/16 Unknown History HumaLOG VIAL 45 units SUB-Q TID 09/12/16 09/12/16 Unknown History Insulin Aspart [NovoLOG Flexpen] 30 units SUB-Q TID MDD 30 Units 09/12/16 Unknown History Labetalol HCl 300 mg PO BID 09/12/16 09/12/16 Unknown History Spironolactone [Aldactone] 25 mg PO QDAY 09/12/16 09/12/16 Unknown History hydrALAZINE [Apresoline] 25 mg PO BID 09/12/16 09/12/16 Unknown History Active Meds: Active Medications Lipase/Protease/Amylase (Mary Reza 10,500 Unit) 1 each FEEDTUBE PRN PRN PRN Reason: For Clogged Feeding Tube Aspirin (Aspirin) 325 mg PO QDAY [facility] Last Admin: 09/13/16 09:35 Dose: 325 mg Atorvastatin Calcium (Lipitor) 40 mg PO QHS [facility] Last Admin: 09/12/16 22:14 Dose: 40 mg Clonidine HCl (Catapres) 0.3 mg PO Q12H [facility] Last Admin: 09/13/16 09:07 Dose: 0.3 mg Clopidogrel Bisulfate (Plavix) 75 mg FEEDTUBE QDAY [facility] Last Admin: 09/13/16 09:35 Dose: 75 mg Dextrose (D50w (25gm)) 50 gm IV PRN PRN PRN Reason: hypoglycemia Famotidine (Pepcid) 20 mg FEEDTUBE QDAY [facility] Last Admin: 09/13/16 09:35 Dose: 20 mg Haloperidol Lactate (Haldol) 5 mg IV Q6H PRN PRN Reason: Unrespon. to mult. doses BZD's Last Admin: 09/13/16 18:21 Dose: 5 mg Heparin Sodium (Porcine) (Heparin) 5,000 unit SUB-Q Q8HR AG[facility] Last Admin: 09/13/16 14:33 Dose: 5,000 unit Hydralazine HCl (Apresoline) 10 mg IV Q6H PRN PRN Reason: SBP > 160 Last Admin: 09/11/16 22:05 Dose: 10 mg Hydralazine HCl (Apresoline) 75 mg PO Q8HR AG[facility] Last Admin: 09/13/16 14:27 Dose: 75 mg Hydrophilic Ointment (Vaseline Lip Therapy) 1 applic TP Q2HR PRN PRN Reason: Dry Lips Fentanyl Citrate (Fentanyl Drip Premix) 2,000 mcg in 100 mls @ 3.775 mls/hr IV TITR AGUSTIN; 1 MCG/KG/HR PRN Reason: Protocol Last Admin: 09/13/16 17:29 Dose: 2.974 mcg/kg/hr, 11.227 mls/hr Propofol (Diprivan 10 Mg/Ml) 1,000 mg in 100 mls @ 2.265 mls/hr IV TITR AGUSTIN; 5 MCG/KG/MIN PRN Reason: Protocol Last Admin: 09/13/16 17:29 Dose: 40 mcg/kg/min, 18.12 mls/hr Levofloxacin/Dextrose (Levaquin 750mg/150ml) 750 mg in 150 mls @ 100 mls/hr IV Q48H AGUSTIN PRN Reason: Protocol Stop: 09/15/16 12:59 Last Admin: 09/12/16 12:40 Dose: 100 mls/hr Nicardipine HCl 50 mg/ Sodium (Chloride) 250 mls @ 25 mls/hr IV TITR AGUSTIN; 5 MG/ HR PRN Reason: Protocol Last Titration: 09/12/16 08:34 Dose: 0 mg/hr, 0 mls/hr Insulin Detemir (Levemir) 5 units SUB-Q Q24H AG[facility] Last Admin: 09/13/16 14:35 Dose: 5 units Insulin Human Regular (Novolin R) 0 units SUB-Q Q6HR AGUSTIN PRN Reason: Protocol Last Admin: 09/13/16 17:38 Dose: 2 units Labetalol HCl (Normodyne) 20 mg IV Q4H PRN PRN Reason: For BP >160/100 Last Admin: 09/13/16 06:04 Dose: 20 mg Methylprednisolone Sodium Succinate (Solu-Medrol) 40 mg IV Q12H [facility] Last Admin: 09/13/16 14:34 Dose: 40 mg Metoprolol Tartrate (Lopressor) 25 mg PO BID [facility] Last Admin: 09/13/16 14:44 Dose: 25 mg Multi-Ingred Cream/Lotion/Oil/Oint (Artificial Tears Ophth Oint) 1 applic OU Q4HR PRN PRN Reason: Dry Eye(s) Ondansetron HCl (Zofran) 4 mg IV Q8H PRN PRN Reason: N/V unrelieved by Regtimo Quetiapine Fumarate (Seroquel) 200 mg PO BID [facility] Last Admin: 09/13/16 09:35 Dose: 200 mg Simple Syrup (Simple Syrup) 30 ml FEEDTUBE PRN PRN PRN Reason: Hypoglycemia Simple Syrup (Simple Syrup) 15 ml FEEDTUBE PRN PRN PRN Reason: Hypoglycemia Sodium Bicarbonate (Sodium Bicarbonate) 325 mg FEEDTUBE PRN PRN PRN Reason: For Clogged Feeding Tube Sodium Chloride (Nacl 0.9% 500 Ml) 1 ml IV DIRECT [facility] Sodium Chloride (Sodium Chloride Flush Syringe 10 Ml) 10 ml IV PRN PRN PRN Reason: LINE FLUSH Review of Systems ROS unobtainable: due to endotracheal tube Physical Examination - Constitutional Vitals: Vital Signs Temp Pulse Resp BP Pulse Ox 99.1 F 113 H 18 125/83 100 09/13/16 08:00 09/13/16 14:44 09/13/16 13:00 09/13/16 14:44 09/13/16 14:00 Temperature -Last 24 Hours Temperature 99.1 F Temperature 98.7 F Temperature 99.0 F Temperature 98.3 F General appearance: Present: no acute distress, other (intubated, FiO2 30%) - EENT ENT: clear oral mucosa, other (ET and Dobhoff tubes in place) - Neck Neck: Present: supple - Respiratory Respiratory effort: normal Respiratory: bilateral: CTA - Cardiovascular Rhythm: regular (tachycardic to 120s) Heart Sounds: Present: S1 & S2 - Extremities Extremities: No edema - Abdominal General gastrointestinal: Present: soft, non-distended, normal bowel sounds Female genitourinary: Present: other ([place] with dark urine) - Rectal Rectal Exam: other (rectal tube with watery brown stool) - Integumentary Integumentary: Absent: jaundice - Neurologic Neurologic: other (minimally responsive) - Additional findings Additional findings: PICC left arm without evidence of infection Results - Labs CBC & Chem 7: 09/13/16 04:00 09/13/16 04:00 Labs: Abnormal lab results 09/08/16 09/12/16 09/12/16 Range/Units 15:35 12:21 16:51 WBC (4.5-11.0) K/mm3 Hgb (10.1-14.3) gm/dl MCV (79-97) fl MCH (28-32) pg RDW (13.2-15.2) % Plt Count (140-440) K/mm3 Seg Neuts % (Manual) (40.0-70.0) % Lymphocytes % (Manual) (13.4-35.0) % Seg Neutrophils # Man (1.8-7.7) K/mm3 Factor V Activity 182 H (65-150) % Carbon Dioxide (22-30) mmol/L BUN (7-17) mg/dL Creatinine (0.7-1.2) mg/dL Glucose (65-100) mg/dL POC Glucose 224 H 169 H (70-105) Total Protein (6.3-8.2) g/dL Albumin (3.9-5) g/dL 09/12/16 09/13/16 09/13/16 Range/Units 23:28 04:00 04:00 WBC 45.0 H* (4.5-11.0) K/mm3 Hgb 9.4 L (10.1-14.3) gm/dl MCV 75 L (79-97) fl MCH 23 L (28-32) pg RDW 19.0 H (13.2-15.2) % Plt Count 470 H (140-440) K/mm3 Seg Neuts % (Manual) 89.0 H (40.0-70.0) % Lymphocytes % (Manual) 5.0 L (13.4-35.0) % Seg Neutrophils # Man 40.1 H (1.8-7.7) K/mm3 Factor V Activity (65-150) % Carbon Dioxide 20 L (22-30) mmol/L BUN 116 H (7-17) mg/dL Creatinine 3.0 H (0.7-1.2) mg/dL Glucose 172 H (65-100) mg/dL POC Glucose 150 H (70-105) Total Protein 6.2 L (6.3-8.2) g/dL Albumin 2.9 L (3.9-5) g/dL 09/13/16 Range/Units 11:26 WBC (4.5-11.0) K/mm3 Hgb (10.1-14.3) gm/dl MCV (79-97) fl MCH (28-32) pg RDW (13.2-15.2) % Plt Count (140-440) K/mm3 Seg Neuts % (Manual) (40.0-70.0) % Lymphocytes % (Manual) (13.4-35.0) % Seg Neutrophils # Man (1.8-7.7) K/mm3 Factor V Activity (65-150) % Carbon Dioxide (22-30) mmol/L BUN (7-17) mg/dL Creatinine (0.7-1.2) mg/dL Glucose (65-100) mg/dL POC Glucose 140 H (70-105) Total Protein (6.3-8.2) g/dL Albumin (3.9-5) g/dL Microbiology 09/13/16 09:04 Peripheral/Venous Blood Culture - Preliminary Culture in Progress 09/13/16 08:39 Peripheral/Venous Blood Culture - Preliminary Culture in Progress 09/11/16 15:03 Stool C. difficile DNA Amplification - Final 09/10/16 10:58 Urine,Clean Catch Urine Culture - Preliminary NO GROWTH AFTER 48 HOURS 09/07/16 17:39 Tracheal Aspirate Sputum Culture - Final - Imaging and Cardiology Chest x-ray: report reviewed (unremarkable AP chest film) CT Scan - head: report reviewed (large left MCA infarct involving the left temporal and parietal areas, no evidence of hemorrhage) Assessment and Plan - Patient Problems (1) Leukocytosis (leucocytosis) Current Visit: Yes Status: Acute Qualifiers: Leukocytosis type: leukemoid reaction Qualified Code(s): D72.823 - Leukemoid reaction Plan to address problem: 1. Question Solu-Medrol as an etiology vs. Cdiff infection (negative assay). 2. Will discontinue Levaquin as there is presently no infectious correlate. She has already received >5 days of antibiotics for a possible aspiration process. 3. Will start Flagyl presumptively and continue to monitor WBC count. 4. Follow blood cultures.
[2016-09-13] MEDS: VANCOMYCIN PO FEEDTUBE SCH (21:42)
[2016-09-13] MEDS: FLAGYL 500 MG/100 ML 500 MG/100 ML BAG IV SCH (21:44)
[2016-09-13 22:10] LABS: dRVVT 1:1 Mix CORRECTED (CORRECTED); dRVVT Confirm Positive (Negative)
[2016-09-14] MEDS: CATAPRES-TTS PATCH TD SCH (00:02)
[2016-09-14] MEDS: VANCOMYCIN PO FEEDTUBE SCH ×5 (00:03→23:50)
[2016-09-14] MEDS: LONITEN PO SCH ×2 (00:03→09:28)
[2016-09-14] MEDS: DIPRIVAN 10 MG/ML 1,000 MG/100 ML BOTTLE IV SCH ×4 (00:04→19:50)
[2016-09-14] MEDS: HumuLIN R SUB-Q SCH ×4 (00:08→18:34)
[2016-09-14] MEDS: HALDOL IV PRN (04:33)
[2016-09-14 04:36] LABS: Hematocrit 27.3 % (30.3-42.9); Hemoglobin 8.9 gm/dl (10.1-14.3); Mean Corpuscular HGB Conc 33 % (30-34); Mean Corpuscular Volume 75 fl (79-97); Platelet Count 344 K/mm3 (140-440); Red Blood Count 3.67 M/mm3 (3.65-5.03); Red Cell Distribution Width 19.1 % (13.2-15.2)
[2016-09-14 04:38] LABS: Mean Corpuscular Hemoglobin 24 pg (28-32)
[2016-09-14 04:53] LABS: Calcium 8.6 mg/dL (8.4-10.2)
[2016-09-14 05:01] LABS: BUN/Creatinine Ratio 43.21
[2016-09-14] MEDS: FLAGYL 500 MG/100 ML 500 MG/100 ML BAG IV SCH ×3 (05:23→21:59)
[2016-09-14] MEDS: APRESOLINE PO SCH (05:24)
[2016-09-14] MEDS: HEPARIN SUB-Q SCH ×3 (05:25→22:00)
--- NOTE | 2016-09-14 07:57 | Vascular Lab Report ---
RENAL ARTERY DUPLEX EXAM: REASON FOR EXAM: Severe hypertension. NOTE: Visualization is technically limited due to bowel gas. COMMENTS ON THE AORTA: The aorta is patent. Normal flow velocities are observed. No aneurysmal dilatation is noted. Mild atherosclerotic change is identified. The celiac artery is patent with normal flow velocity. The superior mesenteric artery is patent with normal flow velocity. COMMENTS ON THE RIGHT KIDNEY: The kidney measures 8.9 centimeters in greatest dimension. Kidney appears to be a bone the small size The renal artery is patent. Maximum systolic velocity is 142 cm/sec. This finding is consistent with less than 60% diameter reduction. Renal aortic index is 1.7. This finding is consistent with less than 60% diameter reduction. Overall findings are consistent with less than 60% diameter reduction in the renal artery. COMMENTS ON THE LEFT KIDNEY: The kidney measures 8.3 centimeters in greatest dimension. Kidney appears to be small The renal artery is patent. Maximum systolic velocity is 185 cm/sec. This finding is consistent with more than 60% diameter reduction. Renal aortic index is 2.23. This finding is consistent with less than 60% diameter reduction. Overall findings are consistent with more than 60% diameter reduction in the renal artery. IMPRESSION: RIGHT KIDNEY: Less than 60% diameter reduction in the renal artery. LEFT KIDNEY: More than 60% diameter reduction in the renal artery. Both kidneys appear small. Clinical correlation is recommended. Elevated velocities in the left renal artery is marginal
--- NOTE | 2016-09-14 08:06 | Progress Note ---
Assessment and Plan - Patient Problems (1) Acute respiratory failure with hypoxia Current Visit: Yes Status: Acute Plan to address problem: - continue aspiration precautions / address VAP bundles - continue to wean oxygen for MAP > 94% - continue bronchodilators and pulmonary toilet - will taper solumedrol (no active needs pulmonary-[place]) - complete empiric levaquin dosing - consult placed for trach and PEG placement (2) Acute CVA (cerebrovascular accident) Current Visit: Yes Status: Acute Plan to address problem: - out of tpA window (initially stopped due to uncontrolled HTN) - Left MCA teritory stroke with some midline shift on last CT - seen by neurology and prognosis for recovery of mental status guarded to poor - optimizing secondary prevention modalities now (BP, lipid anti-platelet therapy) - will continue steroid taper (3) Hypertensive emergency Current Visit: Yes Status: Acute Plan to address problem: - resolved - continue clonidine patch at 0.3mg qweek - continue prn IV rescue labetalol - add metoprolol re: tachycardia also - started on minoxidil by nephrology - BP's better controlled (4) Obesity (BMI 35.0-39.9 without comorbidity) Current Visit: Yes Status: Chronic Plan to address problem: - adjust tube feeds per reinspector's recommendations - supportive and preventive skin care re: breakdown (5) Type 2 diabetes mellitus Current Visit: Yes Status: Chronic Qualifiers: Diabetes mellitus complication status: D Diabetes mellitus complication detail: D Diabetic retinopathy severity: D Proliferative retinopathy type: P Diabetes mellitus macular edema: D Diabetes mellitus halfway insulin use : D Laterality: L Chronic kidney disease stage: C Plan to address problem: - continue SSI - continue lantus at 5units sq q24h (6) Leukocytosis (leucocytosis) Current Visit: Yes Status: Acute Qualifiers: Leukocytosis type: leukemoid reaction Qualified Code(s): D72.823 - Leukemoid reaction Plan to address problem: - afebrile - ? leukemoid reaction - ? steroid leucocytosis - continue empiric levaquin - get CRP & lactate and trend - tapering systemic steroids - follow clinically - C-diff infection assay negative - ID consulted and on flagyl - WBC trending down - cultures NGTD (7) Discharge planning issues Current Visit: Yes Status: Acute Plan to address problem: - she remains critically ill on life sustaining interventions including MVS and at risk for further acute deterioration including .....awaiting trach and PEG ....LTAC thereafter ....35' CCT without overlap Subjective Date of service: 09/14/16 Principal diagnosis: Acute Respiratory Failure on MVS; Acute CVA; Acute Encephalopathy Interval history: Seen and examined at bedside; 24 hour events reviewed; nursing and respiratory care staff consulted; no adverse overnight events reported to me; sedated; BP's better controlled; AMS is persistent; no emesis or overt aspiration and no gross seizures; son came by and consented for trach and PEG Objective Vital Signs - 12hr 09/13/16 09/13/16 09/13/16 20:29 20:30 21:00 Temperature Pulse Rate 116 H 129 H 124 H Respiratory 18 18 15 Rate Blood Pressure 185/101 185/101 206/98 O2 Sat by Pulse 97 96 96 Oximetry 09/13/16 09/13/16 09/13/16 21:30 21:42 21:43 Temperature Pulse Rate 124 H 132 H 130 H Respiratory 15 Rate Blood Pressure 209/102 209/102 209/102 O2 Sat by Pulse 97 Oximetry 09/13/16 09/13/16 09/13/16 22:00 22:30 23:00 Temperature Pulse Rate 95 H 95 H 96 H Respiratory 18 18 18 Rate Blood Pressure 104/58 106/57 103/67 O2 Sat by Pulse 97 98 98 Oximetry 09/13/16 09/13/16 09/13/16 23:30 23:47 23:55 Temperature 99.5 F Pulse Rate 111 H 96 H Respiratory 17 Rate Blood Pressure 204/96 204/96 O2 Sat by Pulse 97 99 Oximetry 09/14/16 09/14/16 09/14/16 00:00 00:02 00:30 Temperature Pulse Rate 88 92 H 109 H Respiratory 18 22 Rate Blood Pressure 98/50 204/96 168/103 O2 Sat by Pulse 98 97 Oximetry 09/14/16 09/14/16 09/14/16 01:00 01:30 02:00 Temperature Pulse Rate 111 H 114 H 112 H Respiratory 15 18 18 Rate Blood Pressure 191/101 192/104 212/103 O2 Sat by Pulse 99 99 98 Oximetry 09/14/16 09/14/16 09/14/16 02:30 03:00 03:30 Temperature Pulse Rate 123 H 118 H 125 H Respiratory 13 16 16 Rate Blood Pressure 187/121 218/115 181/113 O2 Sat by Pulse 98 99 97 Oximetry 09/14/16 09/14/16 09/14/16 03:58 04:00 04:30 Temperature 99.6 F Pulse Rate 109 H 123 H 105 H Respiratory 18 18 Rate Blood Pressure 181/113 201/109 126/68 O2 Sat by Pulse 99 97 97 Oximetry 09/14/16 09/14/16 09/14/16 05:00 05:24 07:57 Temperature Pulse Rate 122 H 129 H 118 H Respiratory 18 Rate Blood Pressure 212/96 145/79 138/65 O2 Sat by Pulse 97 99 Oximetry Constitutional: no acute distress, agitated, other (sedated) Eyes: non-icteric ENT: oropharynx moist Neck: supple, no lymphadenopathy Effort: normal Ascultation: Bilateral: diminished breath sounds, rhonchi (bases) Cardiovascular: regular rate and rhythm Gastrointestinal: normoactive bowel sounds, soft, non-tender, non-distended Integumentary: normal Extremities: no cyanosis, no edema, pulses normal, no ischemia or petechiae Neurologic: pupils equal and round, other (sedated) Psychiatric: other (unable to assess) CBC and BMP: 09/15/16 05:00 09/15/16 05:00 ABG, PT/INR, D-dimer: ABG POC ABG pH 7.342 (7.35-7.45) L 09/14/16 04:06 POC ABG pCO2 35.8 (35-45) 09/14/16 04:06 POC ABG pO2 116 (80-105) H 09/14/16 04:06 POC ABG HCO3 19.4 09/14/16 04:06 POC ABG Total CO2 20 09/14/16 04:06 POC ABG O2 Sat 98 09/14/16 04:06 PT/INR, D-dimer PT 12.9 Sec. (12.2-14.9) 09/03/16 00:10 INR 0.98 (0.87-1.13) 09/03/16 00:10 Abnormal lab findings: Abnormal Labs 09/03/16 09/03/16 09/03/16 12:12 15:07 16:20 WBC RBC Hgb Hct MCV MCH RDW Plt Count Lymph % (Auto) [place] # Seg Neutrophils % Seg Neuts % (Manual) Lymphocytes % (Manual) Seg Neutrophils # Seg Neutrophils # Man Lymphocytes # (Manual) Monocytes # (Manual) Fibrinogen dRVVT Confirm Interp Factor V Activity POC ABG pH 7.452 H POC ABG pCO2 POC ABG pO2 Sodium Potassium Chloride Carbon Dioxide BUN Creatinine Glucose POC Glucose 178 H Calcium Phosphorus 2.20 L Magnesium 1.60 L C-Reactive Protein Total Protein Albumin Triglycerides HDL Cholesterol Urine WBC (Auto) Urine Creatinine Rheumatoid Factor Complement C4 Crossmatch 09/03/16 09/03/16 09/03/16 17:57 17:58 23:50 WBC RBC Hgb Hct MCV MCH RDW Plt Count Lymph % (Auto) [place] # Seg Neutrophils % Seg Neuts % (Manual) Lymphocytes % (Manual) Seg Neutrophils # Seg Neutrophils # Man Lymphocytes # (Manual) Monocytes # (Manual) Fibrinogen dRVVT Confirm Interp Factor V Activity POC ABG pH POC ABG pCO2 POC ABG pO2 Sodium Potassium Chloride Carbon Dioxide BUN Creatinine Glucose POC Glucose 162 H 145 H Calcium Phosphorus 2.30 L Magnesium C-Reactive Protein Total Protein Albumin Triglycerides HDL Cholesterol Urine WBC (Auto) Urine Creatinine Rheumatoid Factor Complement C4 Crossmatch 09/04/16 09/04/16 09/04/16 03:31 03:31 05:42 WBC RBC Hgb 9.7 L D Hct MCV 72 L MCH 23 L RDW 17.5 H Plt Count Lymph % (Auto) 11.1 L [place] # Seg Neutrophils % 84.3 H Seg Neuts % (Manual) Lymphocytes % (Manual) Seg Neutrophils # 8.9 H Seg Neutrophils # Man Lymphocytes # (Manual) Monocytes # (Manual) Fibrinogen dRVVT Confirm Interp Factor V Activity POC ABG pH POC ABG pCO2 POC ABG pO2 Sodium 135 L Potassium 2.9 L* Chloride 97.2 L Carbon Dioxide 19 L BUN Creatinine 1.7 H Glucose 170 H POC Glucose 152 H Calcium Phosphorus Magnesium C-Reactive Protein Total Protein Albumin Triglycerides 160 H HDL Cholesterol 31 L Urine WBC (Auto) Urine Creatinine Rheumatoid Factor Complement C4 Crossmatch 09/04/16 09/04/16 09/04/16 11:34 17:46 23:29 WBC RBC Hgb Hct MCV MCH RDW Plt Count Lymph % (Auto) [place] # Seg Neutrophils % Seg Neuts % (Manual) Lymphocytes % (Manual) Seg Neutrophils # Seg Neutrophils # Man Lymphocytes # (Manual) Monocytes # (Manual) Fibrinogen dRVVT Confirm Interp Factor V Activity POC ABG pH POC ABG pCO2 POC ABG pO2 Sodium Potassium Chloride Carbon Dioxide BUN Creatinine Glucose POC Glucose 165 H 210 H 139 H Calcium Phosphorus Magnesium C-Reactive Protein Total Protein Albumin Triglycerides HDL Cholesterol Urine WBC (Auto) Urine Creatinine Rheumatoid Factor Complement C4 Crossmatch 09/05/16 09/05/16 09/05/16 04:05 04:05 05:38 WBC RBC Hgb Hct MCV 76 L D MCH 23 L RDW 17.8 H Plt Count Lymph % (Auto) [place] # Seg Neutrophils % Seg Neuts % (Manual) Lymphocytes % (Manual) Seg Neutrophils # Seg Neutrophils # Man Lymphocytes # (Manual) Monocytes # (Manual) Fibrinogen dRVVT Confirm Interp Factor V Activity POC ABG pH POC ABG pCO2 POC ABG pO2 Sodium 134 L Potassium Chloride Carbon Dioxide 18 L BUN Creatinine 1.8 H Glucose 192 H POC Glucose 175 H Calcium Phosphorus Magnesium C-Reactive Protein Total Protein Albumin Triglycerides HDL Cholesterol Urine WBC (Auto) Urine Creatinine Rheumatoid Factor Complement C4 Crossmatch 09/05/16 09/05/16 09/05/16 11:38 17:48 23:22 WBC RBC Hgb Hct MCV MCH RDW Plt Count Lymph % (Auto) [place] # Seg Neutrophils % Seg Neuts % (Manual) Lymphocytes % (Manual) Seg Neutrophils # Seg Neutrophils # Man Lymphocytes # (Manual) Monocytes # (Manual) Fibrinogen dRVVT Confirm Interp Factor V Activity POC ABG pH POC ABG pCO2 POC ABG pO2 Sodium Potassium Chloride Carbon Dioxide BUN Creatinine Glucose POC Glucose 164 H 186 H 195 H Calcium Phosphorus Magnesium C-Reactive Protein Total Protein Albumin Triglycerides HDL Cholesterol Urine WBC (Auto) Urine Creatinine Rheumatoid Factor Complement C4 Crossmatch 09/06/16 09/06/16 09/06/16 04:12 05:59 07:32 WBC RBC Hgb Hct MCV MCH RDW Plt Count Lymph % (Auto) [place] # Seg Neutrophils % Seg Neuts % (Manual) Lymphocytes % (Manual) Seg Neutrophils # Seg Neutrophils # Man Lymphocytes # (Manual) Monocytes # (Manual) Fibrinogen dRVVT Confirm Interp Factor V Activity POC ABG pH 7.514 H POC ABG pCO2 29.1 L POC ABG pO2 72 L Sodium 133 L Potassium 3.4 L Chloride 94.9 L Carbon Dioxide 19 L BUN 30 H Creatinine 2.1 H Glucose 139 H POC Glucose 146 H Calcium Phosphorus Magnesium C-Reactive Protein Total Protein Albumin Triglycerides HDL Cholesterol Urine WBC (Auto) Urine Creatinine Rheumatoid Factor Complement C4 Crossmatch 09/06/16 09/06/16 09/06/16 11:57 17:58 19:02 WBC RBC Hgb Hct MCV MCH RDW Plt Count Lymph % (Auto) [place] # Seg Neutrophils % Seg Neuts % (Manual) Lymphocytes % (Manual) Seg Neutrophils # Seg Neutrophils # Man Lymphocytes # (Manual) Monocytes # (Manual) Fibrinogen dRVVT Confirm Interp Factor V Activity POC ABG pH 7.465 H POC ABG pCO2 32.0 L POC ABG pO2 Sodium Potassium Chloride Carbon Dioxide BUN Creatinine Glucose POC Glucose 165 H 160 H Calcium Phosphorus Magnesium C-Reactive Protein Total Protein Albumin Triglycerides HDL Cholesterol Urine WBC (Auto) Urine Creatinine Rheumatoid Factor Complement C4 Crossmatch 09/06/16 09/07/16 09/07/16 23:45 02:47 02:47 WBC RBC Hgb Hct MCV MCH RDW Plt Count Lymph % (Auto) [place] # Seg Neutrophils % Seg Neuts % (Manual) Lymphocytes % (Manual) Seg Neutrophils # Seg Neutrophils # Man Lymphocytes # (Manual) Monocytes # (Manual) Fibrinogen dRVVT Confirm Interp Factor V Activity POC ABG pH POC ABG pCO2 POC ABG pO2 Sodium Potassium Chloride Carbon Dioxide BUN Creatinine Glucose POC Glucose 204 H Calcium Phosphorus Magnesium C-Reactive Protein Total Protein Albumin Triglycerides HDL Cholesterol Urine WBC (Auto) 68.0 H Urine Creatinine 106.1 H Rheumatoid Factor Complement C4 Crossmatch 09/07/16 09/07/16 09/07/16 04:50 06:19 06:39 WBC RBC Hgb Hct MCV MCH RDW Plt Count Lymph % (Auto) [place] # Seg Neutrophils % Seg Neuts % (Manual) Lymphocytes % (Manual) Seg Neutrophils # Seg Neutrophils # Man Lymphocytes # (Manual) Monocytes # (Manual) Fibrinogen dRVVT Confirm Interp Factor V Activity POC ABG pH 7.457 H POC ABG pCO2 32.1 L POC ABG pO2 76 L Sodium 132 L Potassium Chloride 94.7 L Carbon Dioxide BUN 53 H Creatinine 2.9 H Glucose 151 H POC Glucose 149 H Calcium Phosphorus Magnesium C-Reactive Protein Total Protein Albumin Triglycerides HDL Cholesterol Urine WBC (Auto) Urine Creatinine Rheumatoid Factor Complement C4 Crossmatch 09/07/16 09/07/16 09/07/16 09:20 11:43 11:43 WBC 19.4 H RBC Hgb 8.3 L Hct 26.4 L D MCV 72 L D MCH 22 L RDW 17.9 H Plt Count Lymph % (Auto) 8.5 L [place] # 1.0 H Seg Neutrophils % 85.8 H Seg Neuts % (Manual) Lymphocytes % (Manual) Seg Neutrophils # 16.6 H Seg Neutrophils # Man Lymphocytes # (Manual) Monocytes # (Manual) Fibrinogen dRVVT Confirm Interp Factor V Activity POC ABG pH POC ABG pCO2 POC ABG pO2 Sodium 134 L Potassium Chloride 97.2 L Carbon Dioxide 20 L BUN 58 H Creatinine 2.9 H Glucose 147 H POC Glucose Calcium Phosphorus 2.40 L Magnesium 2.40 H C-Reactive Protein Total Protein 5.8 L Albumin 2.2 L Triglycerides HDL Cholesterol Urine WBC (Auto) Urine Creatinine Rheumatoid Factor Complement C4 58 H Crossmatch 09/07/16 09/07/16 09/07/16 11:50 16:00 17:31 WBC RBC Hgb Hct MCV MCH RDW Plt Count Lymph % (Auto) [place] # Seg Neutrophils % Seg Neuts % (Manual) Lymphocytes % (Manual) Seg Neutrophils # Seg Neutrophils # Man Lymphocytes # (Manual) Monocytes # (Manual) Fibrinogen dRVVT Confirm Interp Factor V Activity POC ABG pH POC ABG pCO2 POC ABG pO2 158 H Sodium Potassium Chloride Carbon Dioxide BUN Creatinine Glucose POC Glucose 175 H Calcium Phosphorus Magnesium C-Reactive Protein Total Protein Albumin Triglycerides HDL Cholesterol Urine WBC (Auto) Urine Creatinine 66.3 H Rheumatoid Factor Complement C4 Crossmatch 09/07/16 09/08/16 09/08/16 23:50 05:46 06:18 WBC 17.8 H RBC 3.58 L Hgb 8.1 L Hct 25.5 L MCV 71 L MCH 23 L RDW 18.4 H Plt Count Lymph % (Auto) [place] # Seg Neutrophils % Seg Neuts % (Manual) 92.0 H Lymphocytes % (Manual) 6.0 L Seg Neutrophils # Seg Neutrophils # Man 16.4 H Lymphocytes # (Manual) 1.1 L Monocytes # (Manual) Fibrinogen dRVVT Confirm Interp Factor V Activity POC ABG pH POC ABG pCO2 34.3 L POC ABG pO2 71 L Sodium Potassium Chloride Carbon Dioxide BUN Creatinine Glucose POC Glucose 216 H Calcium Phosphorus Magnesium C-Reactive Protein Total Protein Albumin Triglycerides HDL Cholesterol Urine WBC (Auto) Urine Creatinine Rheumatoid Factor Complement C4 Crossmatch 09/08/16 09/08/16 09/08/16 06:18 06:51 10:55 WBC RBC Hgb Hct MCV MCH RDW Plt Count Lymph % (Auto) [place] # Seg Neutrophils % Seg Neuts % (Manual) Lymphocytes % (Manual) Seg Neutrophils # Seg Neutrophils # Man Lymphocytes # (Manual) Monocytes # (Manual) Fibrinogen dRVVT Confirm Interp Factor V Activity POC ABG pH POC ABG pCO2 POC ABG pO2 Sodium 133 L Potassium Chloride 96.9 L Carbon Dioxide 20 L BUN 63 H Creatinine 2.7 H Glucose 195 H POC Glucose 204 H 169 H Calcium Phosphorus Magnesium C-Reactive Protein Total Protein Albumin Triglycerides HDL Cholesterol Urine WBC (Auto) Urine Creatinine Rheumatoid Factor Complement C4 Crossmatch 09/08/16 09/08/16 09/08/16 11:48 11:48 11:48 WBC RBC Hgb Hct MCV MCH RDW Plt Count Lymph % (Auto) [place] # Seg Neutrophils % Seg Neuts % (Manual) Lymphocytes % (Manual) Seg Neutrophils # Seg Neutrophils # Man Lymphocytes # (Manual) Monocytes # (Manual) Fibrinogen 750 H dRVVT Confirm Interp Factor V Activity POC ABG pH POC ABG pCO2 POC ABG pO2 Sodium Potassium Chloride Carbon Dioxide BUN Creatinine Glucose POC Glucose Calcium Phosphorus Magnesium C-Reactive Protein 15.70 H Total Protein Albumin Triglycerides HDL Cholesterol Urine WBC (Auto) Urine Creatinine Rheumatoid Factor 24 H Complement C4 Crossmatch 09/08/16 09/08/16 09/09/16 15:35 18:25 00:24 WBC RBC Hgb Hct MCV MCH RDW Plt Count Lymph % (Auto) [place] # Seg Neutrophils % Seg Neuts % (Manual) Lymphocytes % (Manual) Seg Neutrophils # Seg Neutrophils # Man Lymphocytes # (Manual) Monocytes # (Manual) Fibrinogen dRVVT Confirm Interp Factor V Activity 182 H POC ABG pH POC ABG pCO2 POC ABG pO2 Sodium Potassium Chloride Carbon Dioxide BUN Creatinine Glucose POC Glucose 184 H 216 H Calcium Phosphorus Magnesium C-Reactive Protein Total Protein Albumin Triglycerides HDL Cholesterol Urine WBC (Auto) Urine Creatinine Rheumatoid Factor Complement C4 Crossmatch 09/09/16 09/09/16 09/09/16 03:00 03:00 04:04 WBC 27.9 H RBC Hgb 8.7 L Hct 28.1 L MCV 72 L MCH 22 L RDW 18.4 H Plt Count 485 H Lymph % (Auto) [place] # Seg Neutrophils % Seg Neuts % (Manual) 77.0 H Lymphocytes % (Manual) 9.0 L Seg Neutrophils # Seg Neutrophils # Man 21.5 H Lymphocytes # (Manual) Monocytes # (Manual) 2.0 H Fibrinogen dRVVT Confirm Interp Factor V Activity POC ABG pH POC ABG pCO2 POC ABG pO2 121 H Sodium 135 L Potassium Chloride 96.3 L Carbon Dioxide 21 L BUN 83 H Creatinine 3.0 H Glucose 135 H POC Glucose Calcium Phosphorus Magnesium C-Reactive Protein Total Protein Albumin Triglycerides HDL Cholesterol Urine WBC (Auto) Urine Creatinine Rheumatoid Factor Complement C4 Crossmatch 09/09/16 09/09/16 09/09/16 05:41 11:55 14:13 WBC RBC Hgb Hct MCV MCH RDW Plt Count Lymph % (Auto) [place] # Seg Neutrophils % Seg Neuts % (Manual) Lymphocytes % (Manual) Seg Neutrophils # Seg Neutrophils # Man Lymphocytes # (Manual) Monocytes # (Manual) Fibrinogen dRVVT Confirm Interp Factor V Activity POC ABG pH POC ABG pCO2 POC ABG pO2 Sodium Potassium Chloride Carbon Dioxide BUN Creatinine Glucose POC Glucose 155 H 186 H Calcium Phosphorus Magnesium C-Reactive Protein Total Protein Albumin Triglycerides HDL Cholesterol Urine WBC (Auto) 25.0 H Urine Creatinine Rheumatoid Factor Complement C4 Crossmatch 09/09/16 09/09/16 09/10/16 17:33 23:13 05:09 WBC RBC Hgb Hct MCV MCH RDW Plt Count Lymph % (Auto) [place] # Seg Neutrophils % Seg Neuts % (Manual) Lymphocytes % (Manual) Seg Neutrophils # Seg Neutrophils # Man Lymphocytes # (Manual) Monocytes # (Manual) Fibrinogen dRVVT Confirm Interp Factor V Activity POC ABG pH POC ABG pCO2 POC ABG pO2 74 L Sodium Potassium Chloride Carbon Dioxide BUN Creatinine Glucose POC Glucose 211 H 215 H Calcium Phosphorus Magnesium C-Reactive Protein Total Protein Albumin Triglycerides HDL Cholesterol Urine WBC (Auto) Urine Creatinine Rheumatoid Factor Complement C4 Crossmatch 09/10/16 09/10/16 09/10/16 05:17 05:17 11:31 WBC 15.8 H RBC 3.25 L Hgb 7.3 L Hct 22.9 L MCV 71 L MCH 23 L RDW 18.4 H Plt Count Lymph % (Auto) [place] # Seg Neutrophils % Seg Neuts % (Manual) 91.0 H Lymphocytes % (Manual) 4.0 L Seg Neutrophils # Seg Neutrophils # Man 14.4 H Lymphocytes # (Manual) 0.6 L Monocytes # (Manual) Fibrinogen dRVVT Confirm Interp Factor V Activity POC ABG pH POC ABG pCO2 POC ABG pO2 Sodium Potassium Chloride Carbon Dioxide 21 L BUN 93 H Creatinine 2.9 H Glucose 146 H POC Glucose 188 H Calcium 8.1 L Phosphorus Magnesium C-Reactive Protein Total Protein Albumin Triglycerides HDL Cholesterol Urine WBC (Auto) Urine Creatinine Rheumatoid Factor Complement C4 Crossmatch 09/10/16 09/10/16 09/10/16 13:17 17:20 23:32 WBC RBC Hgb Hct MCV MCH RDW Plt Count Lymph % (Auto) [place] # Seg Neutrophils % Seg Neuts % (Manual) Lymphocytes % (Manual) Seg Neutrophils # Seg Neutrophils # Man Lymphocytes # (Manual) Monocytes # (Manual) Fibrinogen dRVVT Confirm Interp Factor V Activity POC ABG pH POC ABG pCO2 POC ABG pO2 Sodium Potassium Chloride Carbon Dioxide BUN Creatinine Glucose POC Glucose 199 H 186 H Calcium Phosphorus Magnesium C-Reactive Protein Total Protein Albumin Triglycerides HDL Cholesterol Urine WBC (Auto) Urine Creatinine Rheumatoid Factor Complement C4 Crossmatch See Detail 09/11/16 09/11/16 09/11/16 05:10 05:10 05:17 WBC 28.4 H RBC Hgb 9.2 L Hct 29.3 L D MCV 73 L MCH 23 L RDW 18.9 H Plt Count 452 H Lymph % (Auto) [place] # Seg Neutrophils % Seg Neuts % (Manual) 89.5 H Lymphocytes % (Manual) 2.0 L Seg Neutrophils # Seg Neutrophils # Man 25.4 H Lymphocytes # (Manual) 0.6 L Monocytes # (Manual) 1.3 H Fibrinogen dRVVT Confirm Interp Factor V Activity POC ABG pH POC ABG pCO2 POC ABG pO2 Sodium 136 L Potassium Chloride Carbon Dioxide 18 L BUN 107 H Creatinine 2.6 H Glucose 187 H POC Glucose 230 H Calcium 8.3 L Phosphorus Magnesium C-Reactive Protein Total Protein Albumin Triglycerides HDL Cholesterol Urine WBC (Auto) Urine Creatinine Rheumatoid Factor Complement C4 Crossmatch 09/11/16 09/11/16 09/11/16 05:55 12:02 17:32 WBC RBC Hgb Hct MCV MCH RDW Plt Count Lymph % (Auto) [place] # Seg Neutrophils % Seg Neuts % (Manual) Lymphocytes % (Manual) Seg Neutrophils # Seg Neutrophils # Man Lymphocytes # (Manual) Monocytes # (Manual) Fibrinogen dRVVT Confirm Interp Factor V Activity POC ABG pH POC ABG pCO2 33.8 L POC ABG pO2 Sodium Potassium Chloride Carbon Dioxide BUN Creatinine Glucose POC Glucose 191 H 239 H Calcium Phosphorus Magnesium C-Reactive Protein Total Protein Albumin Triglycerides HDL Cholesterol Urine WBC (Auto) Urine Creatinine Rheumatoid Factor Complement C4 Crossmatch 09/11/16 09/12/16 09/12/16 23:52 05:09 05:32 WBC RBC Hgb Hct MCV MCH RDW Plt Count Lymph % (Auto) [place] # Seg Neutrophils % Seg Neuts % (Manual) Lymphocytes % (Manual) Seg Neutrophils # Seg Neutrophils # Man Lymphocytes # (Manual) Monocytes # (Manual) Fibrinogen dRVVT Confirm Interp Factor V Activity POC ABG pH POC ABG pCO2 34.6 L POC ABG pO2 Sodium Potassium Chloride Carbon Dioxide BUN Creatinine Glucose POC Glucose 265 H 184 H Calcium Phosphorus Magnesium C-Reactive Protein Total Protein Albumin Triglycerides HDL Cholesterol Urine WBC (Auto) Urine Creatinine Rheumatoid Factor Complement C4 Crossmatch 09/12/16 09/12/16 09/12/16 06:45 06:45 07:22 WBC 31.7 H RBC 3.54 L Hgb 8.3 L Hct 25.9 L MCV 73 L MCH 23 L RDW 18.9 H Plt Count Lymph % (Auto) [place] # Seg Neutrophils % Seg Neuts % (Manual) 88.5 H Lymphocytes % (Manual) 4.5 L Seg Neutrophils # Seg Neutrophils # Man 28.1 H Lymphocytes # (Manual) Monocytes # (Manual) 1.0 H Fibrinogen dRVVT Confirm Interp Factor V Activity POC ABG pH POC ABG pCO2 POC ABG pO2 Sodium Potassium Chloride Carbon Dioxide 20 L BUN 115 H Creatinine 2.7 H Glucose 165 H POC Glucose Calcium 8.0 L Phosphorus Magnesium C-Reactive Protein Total Protein Albumin Triglycerides 217 H HDL Cholesterol Urine WBC (Auto) Urine Creatinine Rheumatoid Factor Complement C4 Crossmatch 09/12/16 09/12/16 09/12/16 07:22 09:59 12:21 WBC RBC Hgb Hct MCV MCH RDW Plt Count Lymph % (Auto) [place] # Seg Neutrophils % Seg Neuts % (Manual) Lymphocytes % (Manual) Seg Neutrophils # Seg Neutrophils # Man Lymphocytes # (Manual) Monocytes # (Manual) Fibrinogen dRVVT Confirm Interp Positive H Factor V Activity POC ABG pH POC ABG pCO2 POC ABG pO2 Sodium Potassium Chloride Carbon Dioxide BUN Creatinine Glucose POC Glucose 224 H Calcium Phosphorus Magnesium C-Reactive Protein 1.70 H Total Protein Albumin Triglycerides HDL Cholesterol Urine WBC (Auto) Urine Creatinine Rheumatoid Factor Complement C4 Crossmatch 09/12/16 09/12/16 09/13/16 16:51 23:28 04:00 WBC 45.0 H* RBC Hgb 9.4 L Hct MCV 75 L MCH 23 L RDW 19.0 H Plt Count 470 H Lymph % (Auto) [place] # Seg Neutrophils % Seg Neuts % (Manual) 89.0 H Lymphocytes % (Manual) 5.0 L Seg Neutrophils # Seg Neutrophils # Man 40.1 H Lymphocytes # (Manual) Monocytes # (Manual) Fibrinogen dRVVT Confirm Interp Factor V Activity POC ABG pH POC ABG pCO2 POC ABG pO2 Sodium Potassium Chloride Carbon Dioxide BUN Creatinine Glucose POC Glucose 169 H 150 H Calcium Phosphorus Magnesium C-Reactive Protein Total Protein Albumin Triglycerides HDL Cholesterol Urine WBC (Auto) Urine Creatinine Rheumatoid Factor Complement C4 Crossmatch 09/13/16 09/13/16 09/13/16 04:00 11:26 17:31 WBC RBC Hgb Hct MCV MCH RDW Plt Count Lymph % (Auto) [place] # Seg Neutrophils % Seg Neuts % (Manual) Lymphocytes % (Manual) Seg Neutrophils # Seg Neutrophils # Man Lymphocytes # (Manual) Monocytes # (Manual) Fibrinogen dRVVT Confirm Interp Factor V Activity POC ABG pH POC ABG pCO2 POC ABG pO2 Sodium Potassium Chloride Carbon Dioxide 20 L BUN 116 H Creatinine 3.0 H Glucose 172 H POC Glucose 140 H 183 H Calcium Phosphorus Magnesium C-Reactive Protein Total Protein 6.2 L Albumin 2.9 L Triglycerides HDL Cholesterol Urine WBC (Auto) Urine Creatinine Rheumatoid Factor Complement C4 Crossmatch 09/13/16 09/14/16 09/14/16 23:23 04:06 04:07 WBC 29.4 H RBC Hgb 8.9 L Hct 27.3 L MCV 75 L MCH 24 L RDW 19.1 H Plt Count Lymph % (Auto) [place] # Seg Neutrophils % Seg Neuts % (Manual) Lymphocytes % (Manual) Seg Neutrophils # Seg Neutrophils # Man Lymphocytes # (Manual) Monocytes # (Manual) Fibrinogen dRVVT Confirm Interp Factor V Activity POC ABG pH 7.342 L POC ABG pCO2 POC ABG pO2 116 H Sodium Potassium Chloride Carbon Dioxide BUN Creatinine Glucose POC Glucose 154 H Calcium Phosphorus Magnesium C-Reactive Protein Total Protein Albumin Triglycerides HDL Cholesterol Urine WBC (Auto) Urine Creatinine Rheumatoid Factor Complement C4 Crossmatch 09/14/16 09/14/16 04:07 05:29 WBC RBC Hgb Hct MCV MCH RDW Plt Count Lymph % (Auto) [place] # Seg Neutrophils % Seg Neuts % (Manual) Lymphocytes % (Manual) Seg Neutrophils # Seg Neutrophils # Man Lymphocytes # (Manual) Monocytes # (Manual) Fibrinogen dRVVT Confirm Interp Factor V Activity POC ABG pH POC ABG pCO2 POC ABG pO2 Sodium 136 L Potassium Chloride Carbon Dioxide 18 L BUN 121 H Creatinine 2.8 H Glucose 214 H POC Glucose 239 H Calcium Phosphorus Magnesium C-Reactive Protein Total Protein Albumin Triglycerides HDL Cholesterol Urine WBC (Auto) Urine Creatinine Rheumatoid Factor Complement C4 Crossmatch Allied health notes reviewed: RT
--- NOTE | 2016-09-14 08:41 | XRay Report ---
CHEST 1 VIEW INDICATION: Respiratory failure followup. COMPARISON: Yesterday. FINDINGS: Portable, frontal chest radiograph, 2:11 AM, 09/14/2016 reveals stable cardiomediastinal silhouette, supporting devices, appearance of the lungs and osseous structures, providing for the difference in technique. CONCLUSION: No significant interval change. Thank you for the opportunity to participate in this patient's care.
[2016-09-14 09:13] LABS: Band Neutrophils # (Manual) 0.3 K/mm3; Basophils % (Manual) 0 % (0.0-1.8); Eosinophils % (Manual) 0 % (0.0-4.3); Total Cells Counted 100
[2016-09-14 09:15] LABS: Anisocytosis 1+; Helmet Cells Rare; Hypochromasia 1+; Platelet Estimate Cons; Tear Drop Cells Few
[2016-09-14] MEDS: LOPRESSOR PO SCH ×3 (09:28→18:35)
[2016-09-14] MEDS: ASPIRIN PO SCH (09:28)
[2016-09-14] MEDS: PEPCID FEEDTUBE SCH (09:28)
--- NOTE | 2016-09-14 10:19 | Progress Note ---
Subjective Principal diagnosis: Acute Respiratory Failure on MVS; Acute CVA; Acute Encephalopathy Interval history: Patient was seen today for follow-up of multiple renal related issues She currently remains intubated, blood pressure trends were reviewed currently running in Patient does have very labile hypertension Discussed with ICU nurse as well as Dr. Sandoval She is currently being followed by multiple disciplines Vitals labs intake output and medications were reviewed Social history: Reviewed Family history: Reviewed Allergy: Reviewed Physical examination Vitals: Reviewed HEENT: Oral mucosa moist Neck: Supple no JVD Chest: She does have bilateral basilar crackles mostly on the right than left Heart: Regular rate and rhythm S1 and S2 heard Abdomen: Soft nontender no voluntary guarding rigidity rebound Extremity: Minimal edema dry skin Dermatology; dry skin no edema Neurological; encephalopathic dense Assessment and plan Renal failure: Patient does have chronic kidney disease baseline creatinine was around 1.7 currently close to 3 Patient does have multiple risk factors for progression of renal failure over time chronic kidney disease changes are evident on her current ultrasonogram Altered mental status: Multifactorial in a patient who also has history of recent stroke Hypernatremia: Currently improving better stable to follow Labile hypertension: Likely appears to be secondary renovascular studies currently pending cannot give CATHIE inhibitors angiotensin receptor cuauhtemoc on Aldactone Would like to stabilize her blood pressure between 130 to 150 if possible, may need to withhold or adjust medications Status post stroke: Currently being followed by neurology Her prognosis is very poor, patient's mortality risk is very high , given that she has multiorgan failure also discussed with critical care medicine Blood pressure management plan was discussed with ICU nurse at length medications were changed Currently on Seroquel and when agitated it does her blood pressure more labile This has been clearly explained to patient's son , currently she has multi- organ failure We'll follow-up on the results of arterial Doppler Family has been educated about renal related issues Objective - Vital Signs Vital signs: Vital Signs - 12hr 09/13/16 09/13/16 09/13/16 22:30 23:00 23:30 Temperature Pulse Rate 95 H 96 H 111 H Respiratory 18 18 17 Rate Blood Pressure 106/57 103/67 204/96 O2 Sat by Pulse 98 98 97 Oximetry 09/13/16 09/13/16 09/14/16 23:47 23:55 00:00 Temperature 99.5 F Pulse Rate 96 H 88 Respiratory 18 Rate Blood Pressure 204/96 98/50 O2 Sat by Pulse 99 98 Oximetry 09/14/16 09/14/16 09/14/16 00:02 00:30 01:00 Temperature Pulse Rate 92 H 109 H 111 H Respiratory 22 15 Rate Blood Pressure 204/96 168/103 191/101 O2 Sat by Pulse 97 99 Oximetry 09/14/16 09/14/16 09/14/16 01:30 02:00 02:30 Temperature Pulse Rate 114 H 112 H 123 H Respiratory 18 18 13 Rate Blood Pressure 192/104 212/103 187/121 O2 Sat by Pulse 99 98 98 Oximetry 09/14/16 09/14/16 09/14/16 03:00 03:30 03:58 Temperature Pulse Rate 118 H 125 H 109 H Respiratory 16 16 Rate Blood Pressure 218/115 181/113 181/113 O2 Sat by Pulse 99 97 99 Oximetry 09/14/16 09/14/16 09/14/16 04:00 04:30 05:00 Temperature 99.6 F Pulse Rate 123 H 105 H 122 H Respiratory 18 18 18 Rate Blood Pressure 201/109 126/68 212/96 O2 Sat by Pulse 97 97 97 Oximetry 09/14/16 09/14/16 09/14/16 05:24 05:30 06:00 Temperature Pulse Rate 129 H 113 H 118 H Respiratory 18 18 Rate Blood Pressure 145/79 145/80 135/70 O2 Sat by Pulse 98 Oximetry 09/14/16 09/14/16 09/14/16 06:30 07:00 07:30 Temperature Pulse Rate 99 H 116 H 118 H Respiratory 18 20 17 Rate Blood Pressure 93/46 131/74 138/65 O2 Sat by Pulse 98 98 98 Oximetry 09/14/16 09/14/16 09/14/16 07:57 08:00 08:30 Temperature 98.8 F Pulse Rate 118 H 123 H 126 H Respiratory 18 18 Rate Blood Pressure 138/65 116/69 111/67 O2 Sat by Pulse 99 98 98 Oximetry 09/14/16 09/14/16 09/14/16 09:00 09:28 09:30 Temperature Pulse Rate 124 H 125 H 104 H Respiratory 18 18 Rate Blood Pressure 118/63 118/63 87/47 O2 Sat by Pulse 98 99 Oximetry - Lab 09/14/16 04:07 09/14/16 04:07 Most recent lab results Calcium 8.6 mg/dL (8.4-10.2) 09/14/16 04:07 Phosphorus 4.30 mg/dL (2.5-4.5) D 09/08/16 06:18 Magnesium 2.40 mg/dL (1.7-2.3) H 09/07/16 11:43 Urine Creatinine 66.3 mg/dL (0.1-20.0) H 09/07/16 16:00 Urine Sodium 22 mEq/L 09/07/16 16:00
[2016-09-14 12:26] LABS: Cardiolipin Ab IgA <11 APL (<=11); Cardiolipin Ab IgG <14 GPL (<=14); Cardiolipin Ab IgM <12 MPL (<=12)
--- NOTE | 2016-09-14 14:25 | Progress Note ---
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 C. difficile negative, continue to monitor, consider ID/hematology consult if needed --2 diabetes mellitus; Accu-Chek sliding scale coverage and ADA diet and insulin as needed -- anemia requiring blood transfusion, closely monitor H&H and transfuse as needed --Moderate to severe protein calorie malnutrition with albumin of 2.2 Nutritional supplements, tube feeding, supportive care --DVT prophylaxis with heparin --Full CODE STATUS Consults and recommendations noted and appreciated Closely monitor the patient and adjust the management as needed Plan of care discussed with the patient's nurse Critical Care time 33 minutes The high probability of a clinically significant, sudden or life threatening deterioration of the [cardiovascular, pulmonary, infectious, renal and neurological] system(s) required my full and direct attention, intervention and personal management. The aggregate critical care time was [33] minutes. This time is in addition to time spent performing reported procedures but includes the following: [] Data Review and interpretation [] Patient assessment and monitoring of vital signs [] Documentation [] Medication orders and management History Interval history: Patient remains orally intubated on ventilatory support and sedated No new events reported by the nursing staff Surgery planning trach and PEG, off antiplatelets in preparation for surgery Hospitalist Physical - Constitutional Vitals: Temp Pulse Resp BP Pulse Ox 98.8 F 109 H 18 103/51 100 09/14/16 08:00 09/14/16 12:46 09/14/16 11:00 09/14/16 12:46 09/14/16 12:01 General appearance: Present: no acute distress, other (intubated, sedated) - EENT Eyes: Present: PERRL ENT: other (ETT and dobhoff in place) - Neck Neck: Present: supple - Respiratory Respiratory effort: normal Respiratory: bilateral: diminished, rhonchi, negative: rales, wheezing - Cardiovascular Rhythm: regular Heart Sounds: Present: S1 & S2 - Extremities Extremities: no ischemia Extremity abnormal: edema - Abdominal General gastrointestinal: soft, non-distended, normal bowel sounds - Integumentary Integumentary: Present: clear, warm - Psychiatric Psychiatric: other (non communicative/intubated) - Neurologic Neurologic: other (non communicative) Results - Labs CBC & Chem 7: 09/14/16 04:07 09/14/16 04:07 Labs: Laboratory Last Values WBC 29.4 K/mm3 (4.5-11.0) H 09/14/16 04:07 RBC 3.67 M/mm3 (3.65-5.03) 09/14/16 04:07 Hgb 8.9 gm/dl (10.1-14.3) L 09/14/16 04:07 Hct 27.3 % (30.3-42.9) L 09/14/16 04:07 MCV 75 fl (79-97) L 09/14/16 04:07 MCH 24 pg (28-32) L 09/14/16 04:07 MCHC 33 % (30-34) 09/14/16 04:07 RDW 19.1 % (13.2-15.2) H 09/14/16 04:07 Plt Count 344 K/mm3 (140-440) 09/14/16 04:07 Lymph % (Auto) 8.5 % (13.4-35.0) L 09/07/16 11:43 Thomas % (Auto) 5.4 % (0.0-7.3) 09/07/16 11:43 Eos % (Auto) 0.2 % (0.0-4.3) 09/07/16 11:43 Baso % (Auto) 0.1 % (0.0-1.8) 09/07/16 11:43 Lymph # [employer] Att[employer] 09/13/16 04:00 Thomas # 1.0 K/mm3 (0.0-0.8) H 09/07/16 11:43 Eos # 0.0 K/mm3 (0.0-0.4) 09/07/16 11:43 Baso # 0.0 K/mm3 (0.0-0.1) 09/07/16 11:43 Add Manual Diff Complete 09/14/16 04:07 Total Counted 100 09/14/16 04:07 Seg Neutrophils % [employer] Att[employer] 09/08/16 06:18 Seg Neuts % (Manual) 84.0 % (40.0-70.0) H 09/14/16 04:07 Band Neutrophils % 1.0 % 09/14/16 04:07 Lymphocytes % (Manual) 6.0 % (13.4-35.0) L 09/14/16 04:07 Reactive Lymphs % (Man) 0 % 09/14/16 04:07 Monocytes % (Manual) 9.0 % (0.0-7.3) H 09/14/16 04:07 Eosinophils % (Manual) 0 % (0.0-4.3) 09/14/16 04:07 Basophils % (Manual) 0 % (0.0-1.8) 09/14/16 04:07 Metamyelocytes % 0 % 09/14/16 04:07 Myelocytes % 0 % 09/14/16 04:07 Promyelocytes % 0 % 09/14/16 04:07 Blast Cells % 0 % 09/14/16 04:07 Nucleated RBC % Not Reportable 09/14/16 04:07 Seg Neutrophils # 16.6 K/mm3 (1.8-7.7) H 09/07/16 11:43 Seg Neutrophils # Man 24.7 K/mm3 (1.8-7.7) H 09/14/16 04:07 Band Neutrophils # 0.3 K/mm3 09/14/16 04:07 Lymphocytes # (Manual) 1.8 K/mm3 (1.2-5.4) 09/14/16 04:07 Abs React Lymphs (Man) 0.0 K/mm3 09/14/16 04:07 Monocytes # (Manual) 2.6 K/mm3 (0.0-0.8) H 09/14/16 04:07 Eosinophils # (Manual) 0.0 K/mm3 (0.0-0.4) 09/14/16 04:07 Basophils # (Manual) 0.0 K/mm3 (0.0-0.1) 09/14/16 04:07 Metamyelocytes # 0.0 K/mm3 09/14/16 04:07 Myelocytes # 0.0 K/mm3 09/14/16 04:07 Promyelocytes # 0.0 K/mm3 09/14/16 04:07 Blast Cells # 0.0 K/mm3 09/14/16 04:07 Pathologist Review 09/13/16 04:00 WBC Morphology Not Reportable 09/14/16 04:07 Hypersegmented Neuts Not Reportable 09/14/16 04:07 Hyposegmented Neuts Not Reportable 09/14/16 04:07 Hypogranular Neuts Not Reportable 09/14/16 04:07 Smudge Cells Not Reportable 09/14/16 04:07 Toxic Granulation Not Reportable 09/14/16 04:07 Toxic Vacuolation Not Reportable 09/14/16 04:07 Dohle Bodies Not Reportable 09/14/16 04:07 Pelger-Huet Anomaly Not Reportable 09/14/16 04:07 Jasmina Rods Not Reportable 09/14/16 04:07 Platelet Estimate Cons 09/14/16 04:07 Clumped Platelets Not Reportable 09/14/16 04:07 Plt Clumps, EDTA Not Reportable 09/14/16 04:07 Large Platelets Not Reportable 09/14/16 04:07 Giant Platelets Not Reportable 09/14/16 04:07 Platelet Satelliting Not Reportable 09/14/16 04:07 Plt Morphology Comment Not Reportable 09/14/16 04:07 RBC Morphology Not Reportable 09/14/16 04:07 Dimorphic RBCs Not Reportable 09/14/16 04:07 Polychromasia Not Reportable 09/14/16 04:07 Hypochromasia 1+ 09/14/16 04:07 Poikilocytosis Not Reportable 09/14/16 04:07 Anisocytosis 1+ 09/14/16 04:07 Microcytosis Not Reportable 09/14/16 04:07 Macrocytosis Not Reportable 09/14/16 04:07 Spherocytes Not Reportable 09/14/16 04:07 Pappenheimer Bodies Not Reportable 09/14/16 04:07 Sickle Cells Not Reportable 09/14/16 04:07 Target Cells Not Reportable 09/14/16 04:07 Tear Drop Cells Few 09/14/16 04:07 Ovalocytes Not Reportable 09/14/16 04:07 Helmet Cells Rare 09/14/16 04:07 Monet-Trevorton Bodies Not Reportable 09/14/16 04:07 [place] Rings Not Reportable 09/14/16 04:07 Hamill Cells Not Reportable 09/14/16 04:07 Bite Cells Not Reportable 09/14/16 04:07 Crenated Cell Not Reportable 09/14/16 04:07 Elliptocytes Not Reportable 09/14/16 04:07 Acanthocytes (Spur) Not Reportable 09/14/16 04:07 Rouleaux Not Reportable 09/14/16 04:07 Hemoglobin C Crystals Not Reportable 09/14/16 04:07 Schistocytes Not Reportable 09/14/16 04:07 Malaria parasites Not Reportable 09/14/16 04:07 ESR > 140.0 mm/Hr (0-20) 09/08/16 11:48 Jun Bodies Not Reportable 09/14/16 04:07 Hem Pathologist Commnt No 09/14/16 04:07 PT 12.9 Sec. (12.2-14.9) 09/03/16 00:10 INR 0.98 (0.87-1.13) 09/03/16 00:10 APTT 29.0 Sec. (24.2-36.6) 09/03/16 00:10 Thrombin Time 16.8 Sec. (15.1-19.6) 09/03/16 00:10 Fibrinogen 750 mg/dl (211-480) H 09/08/16 11:48 Lupus Anticoagulant see below 09/12/16 09:59 dRVVT Confirm Interp Positive (Negative) H 09/12/16 09:59 dRVVT Mix Interpret Corrected (CORRECTED) 09/12/16 09:59 Protein C Antigen 122 % (70-140) 09/08/16 15:35 Free Protein S 97 % normal (50-147) 09/08/16 15:35 Total Protein S 109 % (70-140) 09/08/16 15:35 Antithrombin III Ag 100 % (80-120) 09/08/16 15:35 Factor V Activity 182 % (65-150) H 09/08/16 15:35 POC ABG pH 7.342 (7.35-7.45) L 09/14/16 04:06 POC ABG pCO2 35.8 (35-45) 09/14/16 04:06 POC ABG pO2 116 (80-105) H 09/14/16 04:06 POC ABG HCO3 19.4 09/14/16 04:06 POC ABG Total CO2 20 09/14/16 04:06 POC ABG O2 Sat 98 09/14/16 04:06 POC ABG Base Excess -6 09/14/16 04:06 FiO2 30 % 09/14/16 04:06 Sodium 136 mmol/L (137-145) L 09/14/16 04:07 Potassium 5.0 mmol/L (3.6-5.0) 09/14/16 04:07 Chloride 101.2 mmol/L (98-107) 09/14/16 04:07 Carbon Dioxide 18 mmol/L (22-30) L 09/14/16 04:07 Anion Gap 22 mmol/L 09/14/16 04:07 BUN 121 mg/dL (7-17) H 09/14/16 04:07 Creatinine 2.8 mg/dL (0.7-1.2) H 09/14/16 04:07 Estimated GFR 22 ml/min 09/14/16 04:07 BUN/Creatinine Ratio 43.21 % 09/14/16 04:07 Glucose 214 mg/dL (65-100) H 09/14/16 04:07 POC Glucose 239 (70-105) H 09/14/16 05:29 Lactic Acid 1.00 mmol/L (0.7-2.0) 09/13/16 11:30 Calcium 8.6 mg/dL (8.4-10.2) 09/14/16 04:07 Phosphorus 4.30 mg/dL (2.5-4.5) D 09/08/16 06:18 Magnesium 2.40 mg/dL (1.7-2.3) H 09/07/16 11:43 Total Bilirubin 0.30 mg/dL (0.1-1.2) 09/13/16 04:00 AST 20 units/L (5-40) 09/13/16 04:00 ALT 18 units/L (7-56) 09/13/16 04:00 Alkaline Phosphatase 72 units/L (35-129) 09/13/16 04:00 Ammonia 27.0 umol/L (25-60) 09/07/16 08:37 Total Creatine Kinase 67 units/L (30-135) 09/03/16 11:26 CK-MB (CK-2) 1.4 ng/mL (0.0-4.0) 09/03/16 11:26 CK-MB (CK-2) Rel Index 2.0 (0-4) 09/03/16 11:26 Troponin T < 0.010 ng/mL (0.00-0.029) 09/06/16 10:43 C-Reactive Protein 1.70 mg/dL (0.00-1.30) H 09/12/16 07:22 Total Protein 6.2 g/dL (6.3-8.2) L 09/13/16 04:00 Albumin 2.9 g/dL (3.9-5) L 09/13/16 04:00 Albumin/Globulin Ratio 0.9 % 09/13/16 04:00 Triglycerides 217 mg/dL (2-149) H 09/12/16 07:22 Cholesterol 189 mg/dL (50-199) 09/04/16 03:31 LDL Cholesterol Direct 126 mg/dL (50-130) 09/04/16 03:31 HDL Cholesterol 31 mg/dL (40-59) L 09/04/16 03:31 Cholesterol/HDL Ratio 6.09 % 09/04/16 03:31 TSH 1.010 mlU/mL (0.270-4.200) 09/07/16 08:37 HCG, Qual Negative (Negative) 09/03/16 00:10 Urine Color Yellow (Yellow) 09/09/16 14:13 Urine Turbidity Slightly-cloudy (Clear) 09/09/16 14:13 Urine pH 5.0 (5.0-7.0) 09/09/16 14:13 Ur Specific [place] 1.012 (1.003-1.030) 09/09/16 14:13 Urine Protein 30 mg/dl mg/dL (Negative) 09/09/16 14:13 Urine Glucose (UA) Neg mg/dL (Negative) 09/09/16 14:13 Urine Ketones Neg mg/dL (Negative) 09/09/16 14:13 Urine Blood Lg (Negative) 09/09/16 14:13 Urine Nitrite Neg (Negative) 09/09/16 14:13 Urine Bilirubin Neg (Negative) 09/09/16 14:13 Urine Urobilinogen < 2.0 mg/dL (<2.0) 09/09/16 14:13 Ur Leukocyte Esterase Sm (Negative) 09/09/16 14:13 Urine WBC (Auto) 25.0 /HPF (0.0-6.0) H 09/09/16 14:13 Urine RBC (Auto) > 182.0 /HPF (0.0-6.0) 09/09/16 14:13 Urine Bacteria (Auto) 1+ /HPF (Negative) 09/09/16 14:13 Urine WBC Clumps 2+ /HPF 09/07/16 02:47 Hyaline Casts 4 /LPF 09/07/16 02:47 Urine Mucus Few /HPF 09/09/16 14:13 Urine Eosinophils None seen (None Seen) 09/07/16 16:00 Urine Creatinine 66.3 mg/dL (0.1-20.0) H 09/07/16 16:00 Urine Sodium 22 mEq/L 09/07/16 16:00 Random Vancomycin 2.3 ug/mL (0-40.0) 09/09/16 03:00 Urine Opiates Screen Presumptive negative 09/03/16 15:11 Urine Methadone Screen Presumptive positive 09/03/16 15:11 Ur Barbiturates Screen Presumptive positive 09/03/16 15:11 Ur Phencyclidine Scrn Presumptive negative 09/03/16 15:11 Ur Amphetamines Screen Presumptive negative 09/03/16 15:11 U Benzodiazepines Scrn Presumptive negative 09/03/16 15:11 Urine Cocaine Screen Presumptive negative 09/03/16 15:11 U Marijuana (THC) Screen Presumptive positive 09/03/16 15:11 Drugs of Abuse Note Disclamer 09/03/16 15:11 Rheumatoid Factor 24 IU/ml (0-13) H 09/08/16 11:48 SAHIL Screen Negative (Negative) 09/07/16 09:20 Proteinase 3 (PR3) Ab <1.0 AI (<1.0) 09/07/16 09:20 Myeloperoxidase Ab <1.0 AI (<1.0) 09/07/16 09:20 Sjogren's Antibody <1.0 AI (<1.0) 09/08/16 15:35 Scl-70 Scleroderma Ab <1.0 AI (<1.0) 09/08/16 15:35 Centromere B Antibody <1.0 AI (<1.0) 09/08/16 12:02 Cardiolipid IgG Ab <14 GPL (<=14) 09/12/16 09:59 Cardiolipid IgA Ab <11 APL (<=11) 09/12/16 09:59 Cardiolipid IgM Ab <12 MPL (<=12) 09/12/16 09:59 Complement C3 148 mg/dL (90-180) 09/07/16 09:20 Complement C4 58 mg/dL (16-47) H 09/07/16 09:20 RPR Nonreactive (Nonreactive) 09/08/16 11:48 Hep Bs Antigen Non-reactive (Negative) 09/07/16 09:20 Hepatitis C Antibody Non-reactive (NonReactive) 09/07/16 09:20 HIV 1&2 Antibody Rapid Non react (Non React) 09/08/16 11:48 HIV P24 Antigen Non react (Non React) 09/08/16 11:48 Blood Type A POSITIVE 09/10/16 13:17 Antibody Screen TNR 09/10/16 13:17 DELORIS Antibody Screen Negative 09/10/16 13:17 Crossmatch See Detail 09/10/16 13:17
--- NOTE | 2016-09-14 14:52 | Progress Note ---
Assessment and Plan - Patient Problems (1) Acute respiratory failure with hypoxia Current Visit: Yes Status: Acute Plan to address problem: I discussed with patient's son, Piero, regarding Trach and PEG placement. Risks of infection, bleeding, injury to adjacent structures, dislodgment of tubes, need for other procedures , etc. explained verbal and written consent obtained We will schedule for next available time Subjective Date of service: 09/14/16 Patient Reports: Positive: other (no changes-on vent) Objective Vital Signs - 12hr 09/14/16 09/14/16 09/14/16 03:00 03:30 03:58 Temperature Pulse Rate 118 H 125 H 109 H Respiratory 16 16 Rate Blood Pressure 218/115 181/113 181/113 O2 Sat by Pulse 99 97 99 Oximetry 09/14/16 09/14/16 09/14/16 04:00 04:30 05:00 Temperature 99.6 F Pulse Rate 123 H 105 H 122 H Respiratory 18 18 18 Rate Blood Pressure 201/109 126/68 212/96 O2 Sat by Pulse 97 97 97 Oximetry 09/14/16 09/14/16 09/14/16 05:24 05:30 06:00 Temperature Pulse Rate 129 H 113 H 118 H Respiratory 18 18 Rate Blood Pressure 145/79 145/80 135/70 O2 Sat by Pulse 98 Oximetry 09/14/16 09/14/16 09/14/16 06:30 07:00 07:30 Temperature Pulse Rate 99 H 116 H 118 H Respiratory 18 20 17 Rate Blood Pressure 93/46 131/74 138/65 O2 Sat by Pulse 98 98 98 Oximetry 09/14/16 09/14/16 09/14/16 07:57 08:00 08:30 Temperature 98.8 F Pulse Rate 118 H 123 H 126 H Respiratory 18 18 Rate Blood Pressure 138/65 116/69 111/67 O2 Sat by Pulse 99 98 98 Oximetry 09/14/16 09/14/16 09/14/16 09:00 09:28 09:30 Temperature Pulse Rate 124 H 125 H 104 H Respiratory 18 18 Rate Blood Pressure 118/63 118/63 87/47 O2 Sat by Pulse 98 99 Oximetry 09/14/16 09/14/16 09/14/16 10:00 10:30 11:00 Temperature Pulse Rate 90 106 H 107 H Respiratory 19 18 18 Rate Blood Pressure 80/39 94/49 110/56 O2 Sat by Pulse 99 Oximetry 09/14/16 09/14/16 12:01 12:46 Temperature Pulse Rate 112 H 109 H Respiratory Rate Blood Pressure 113/57 103/51 O2 Sat by Pulse 100 Oximetry - General physical appearance other (unresponsive and on vent) - Neck no masses, trachea midline - Abdomen soft, not distended - Labs 09/14/16 04:07 09/14/16 04:07 Diabetes panel 09/14/16 Range/Units 04:07 Sodium 136 L (137-145) mmol/L Potassium 5.0 (3.6-5.0) mmol/L Chloride 101.2 (98-107) mmol/L Carbon Dioxide 18 L (22-30) mmol/L BUN 121 H (7-17) mg/dL Creatinine 2.8 H (0.7-1.2) mg/dL Glucose 214 H (65-100) mg/dL Calcium 8.6 (8.4-10.2) mg/dL Calcium panel 09/14/16 Range/Units 04:07 Calcium 8.6 (8.4-10.2) mg/dL Pituitary panel 09/14/16 Range/Units 04:07 Sodium 136 L (137-145) mmol/L Potassium 5.0 (3.6-5.0) mmol/L Chloride 101.2 (98-107) mmol/L Carbon Dioxide 18 L (22-30) mmol/L BUN 121 H (7-17) mg/dL Creatinine 2.8 H (0.7-1.2) mg/dL Glucose 214 H (65-100) mg/dL Calcium 8.6 (8.4-10.2) mg/dL Adrenal panel 09/14/16 Range/Units 04:07 Sodium 136 L (137-145) mmol/L Potassium 5.0 (3.6-5.0) mmol/L Chloride 101.2 (98-107) mmol/L Carbon Dioxide 18 L (22-30) mmol/L BUN 121 H (7-17) mg/dL Creatinine 2.8 H (0.7-1.2) mg/dL Glucose 214 H (65-100) mg/dL Calcium 8.6 (8.4-10.2) mg/dL
[2016-09-14] MEDS: LEVEMIR (NF) SUB-Q SCH (15:31)
--- NOTE | 2016-09-14 18:21 | Progress Note ---
Assessment and Plan - Patient Problems (1) Leukocytosis (leucocytosis) Current Visit: Yes Status: Acute Qualifiers: Leukocytosis type: leukemoid reaction Qualified Code(s): D72.823 - Leukemoid reaction Plan to address problem: 1. Improved to 29K today. 2. Continue current regimen for presumptive Cdiff infection. Subjective Date of service: 09/14/16 Principal diagnosis: Acute Respiratory Failure on MVS; Acute CVA; Acute Encephalopathy Interval history: Remains in ICU. Afebrile. Objective - Constitutional Vitals: Vital Signs Temp Pulse Resp BP Pulse Ox 98.5 F 107 H 17 101/53 99 09/14/16 12:00 09/14/16 16:30 09/14/16 16:30 09/14/16 16:30 09/14/16 16:30 Temperature -Last 24 Hours Temperature 98.5 F Temperature 98.8 F Temperature 99.6 F Temperature 99.5 F Temperature 99.0 F - Labs CBC & Chem 7: 09/14/16 04:07 09/14/16 04:07 Labs: Abnormal lab results 09/12/16 09/13/16 09/13/16 Range/Units 09:59 17:31 23:23 WBC (4.5-11.0) K/mm3 Hgb (10.1-14.3) gm/dl Hct (30.3-42.9) % MCV (79-97) fl MCH (28-32) pg RDW (13.2-15.2) % Seg Neuts % (Manual) (40.0-70.0) % Lymphocytes % (Manual) (13.4-35.0) % Monocytes % (Manual) (0.0-7.3) % Seg Neutrophils # Man (1.8-7.7) K/mm3 Monocytes # (Manual) (0.0-0.8) K/mm3 dRVVT Confirm Interp Positive H (Negative) POC ABG pH (7.35-7.45) POC ABG pO2 (80-105) Sodium (137-145) mmol/L Carbon Dioxide (22-30) mmol/L BUN (7-17) mg/dL Creatinine (0.7-1.2) mg/dL Glucose (65-100) mg/dL POC Glucose 183 H 154 H (70-105) 07/09/14/16 09/14/16 Range/Units 04:06 04:07 04:07 WBC 29.4 H (4.5-11.0) K/mm3 Hgb 8.9 L (10.1-14.3) gm/dl Hct 27.3 L (30.3-42.9) % MCV 75 L (79-97) fl MCH 24 L (28-32) pg RDW 19.1 H (13.2-15.2) % Seg Neuts % (Manual) 84.0 H (40.0-70.0) % Lymphocytes % (Manual) 6.0 L (13.4-35.0) % Monocytes % (Manual) 9.0 H (0.0-7.3) % Seg Neutrophils # Man 24.7 H (1.8-7.7) K/mm3 Monocytes # (Manual) 2.6 H (0.0-0.8) K/mm3 dRVVT Confirm Interp (Negative) POC ABG pH 7.342 L (7.35-7.45) POC ABG pO2 116 H (80-105) Sodium 136 L (137-145) mmol/L Carbon Dioxide 18 L (22-30) mmol/L BUN 121 H (7-17) mg/dL Creatinine 2.8 H (0.7-1.2) mg/dL Glucose 214 H (65-100) mg/dL POC Glucose (70-105) 09/14/16 Range/Units 05:29 WBC (4.5-11.0) K/mm3 Hgb (10.1-14.3) gm/dl Hct (30.3-42.9) % MCV (79-97) fl MCH (28-32) pg RDW (13.2-15.2) % Seg Neuts % (Manual) (40.0-70.0) % Lymphocytes % (Manual) (13.4-35.0) % Monocytes % (Manual) (0.0-7.3) % Seg Neutrophils # Man (1.8-7.7) K/mm3 Monocytes # (Manual) (0.0-0.8) K/mm3 dRVVT Confirm Interp (Negative) POC ABG pH (7.35-7.45) POC ABG pO2 (80-105) Sodium (137-145) mmol/L Carbon Dioxide (22-30) mmol/L BUN (7-17) mg/dL Creatinine (0.7-1.2) mg/dL Glucose (65-100) mg/dL POC Glucose 239 H (70-105) Microbiology 09/13/16 10:30 Urine,[place] Urine Culture - Preliminary NO GROWTH AFTER 24 HOURS 09/13/16 09:04 Peripheral/Venous Blood Culture - Preliminary NO GROWTH AFTER 24 HOURS 09/13/16 08:39 Peripheral/Venous Blood Culture - Preliminary NO GROWTH AFTER 24 HOURS 09/13/16 14:06 Tracheal Aspirate Sputum Culture - Preliminary 09/11/16 15:03 Stool C. difficile DNA Amplification - Final 09/10/16 10:58 Urine,Clean C[place] Urine Culture - Preliminary NO GROWTH AFTER 48 HOURS 09/07/16 17:39 Tracheal Aspirate Sputum Culture - Final
[2016-09-14] MEDS: fentaNYL DRIP Premix 2,000 MCG/100 ML BAG IV SCH (19:50)
[2016-09-15] MEDS: HumuLIN R SUB-Q SCH ×4 (01:12→17:41)
[2016-09-15 05:27] LABS: Hematocrit 22.9 % (30.3-42.9); Hemoglobin 7.2 gm/dl (10.1-14.3); Mean Corpuscular HGB Conc 31 % (30-34); Mean Corpuscular Volume 75 fl (79-97); Platelet Count 233 K/mm3 (140-440); Red Blood Count 3.05 M/mm3 (3.65-5.03)
[2016-09-15 05:34] LABS: INR 1.01 (0.87-1.13); Mean Corpuscular Hemoglobin 24 pg (28-32)
[2016-09-15 05:35] LABS: Partial Thromboplastin Time 24.4 Sec. (24.2-36.6)
[2016-09-15 05:45] LABS: Calcium 8.3 mg/dL (8.4-10.2)
[2016-09-15] MEDS: FLAGYL 500 MG/100 ML 500 MG/100 ML BAG IV SCH ×3 (05:52→22:46)
[2016-09-15] MEDS: VANCOMYCIN PO FEEDTUBE SCH ×3 (05:53→17:23)
[2016-09-15 05:54] LABS: BUN/Creatinine Ratio 37.56
[2016-09-15] MEDS: HEPARIN SUB-Q SCH ×3 (06:00→22:41)
[2016-09-15] MEDS: LOPRESSOR PO SCH ×4 (07:41→18:18)
--- NOTE | 2016-09-15 08:00 | Progress Note ---
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 Continue aspirin and statin, supportive care --Encephalopathy; secondary to large CVA --Acute hypoxic respiratory failure on mechanical ventilation > 96 hours Vent dependent, unable to wean, Possible trach and PEG if unable to wean --Aspiration pneumonia Continue current antibiotics , follow cultures and supportive care --Acute exacerbation of COPD; Nebulizers tapering dose of steroids antibiotics and ventilatory support, pulmonary following --Hypertensive emergency requiring Cardene drip Her blood pressures are reasonable level, off Cardene drip --Acute on chronic kidney disease stage III Gentle hydration closely monitor renal function and avoid nephrotoxic medications Nephrology following --Worsening leukocytosis; Multifactorial ,secondary to underlying sepsis due to pneumonia UTI, stress- induced, as well as steroid use. C. difficile negative, continue to monitor, consider ID/hematology consult if needed --2 diabetes mellitus; Accu-Chek sliding scale coverage and ADA diet and insulin as needed -- anemia requiring blood transfusion, closely monitor H&H and transfuse as needed --Moderate to severe protein calorie malnutrition with albumin of 2.2 Nutritional supplements, tube feeding, supportive care --DVT prophylaxis with heparin --Full CODE STATUS Consults and recommendations noted and appreciated Closely monitor the patient and adjust the management as needed Plan of care discussed with the patient's nurse Critical Care time 31 minutes The high probability of a clinically significant, sudden or life threatening deterioration of the [cardiovascular, pulmonary, infectious, renal and neurological] system(s) required my full and direct attention, intervention and personal management. The aggregate critical care time was [31] minutes. This time is in addition to time spent performing reported procedures but includes the following: [] Data Review and interpretation [] Patient assessment and monitoring of vital signs [] Documentation [] Medication orders and management History Interval history: She remains intubated on ventilatory support Awaiting tracheostomy and PEG placement, Low-grade fever MAXIMUM TEMPERATURE of 100.9, tachycardic Hospitalist Physical - Constitutional Vitals: Temp Pulse Resp BP Pulse Ox 100.9 F H 188 H 19 125/73 97 09/15/16 03:22 09/15/16 07:41 09/15/16 07:00 09/15/16 07:41 09/15/16 07:00 General appearance: Present: no acute distress, well-nourished, other (intubated , sedated) - EENT Eyes: Present: PERRL, EOM intact - Neck Neck: Present: supple - Respiratory Respiratory effort: normal Respiratory: bilateral: diminished, rhonchi, negative: rales, wheezing - Cardiovascular Rhythm: regular Heart Sounds: Present: S1 & S2 (tachycardia) - Extremities Extremities: no ischemia Extremity abnormal: edema - Abdominal General gastrointestinal: soft, non-tender, non-distended, normal bowel sounds - Integumentary Integumentary: Present: clear, warm - Psychiatric Psychiatric: other (noncommunicative) - Neurologic Neurologic: other (intubated noncommunicative) Results - Labs CBC & Chem 7: 09/15/16 05:00 09/15/16 05:00 Labs: Laboratory Last Values WBC 26.1 K/mm3 (4.5-11.0) H 09/15/16 05:00 RBC 3.05 M/mm3 (3.65-5.03) L 09/15/16 05:00 Hgb 7.2 gm/dl (10.1-14.3) L 09/15/16 05:00 Hct 22.9 % (30.3-42.9) L 09/15/16 05:00 MCV 75 fl (79-97) L 09/15/16 05:00 MCH 24 pg (28-32) L 09/15/16 05:00 MCHC 31 % (30-34) 09/15/16 05:00 RDW 19.0 % (13.2-15.2) H 09/15/16 05:00 Plt Count 233 K/mm3 (140-440) 09/15/16 05:00 Lymph % (Auto) 8.5 % (13.4-35.0) L 09/07/16 11:43 [place] % (Auto) 5.4 % (0.0-7.3) 09/07/16 11:43 Eos % (Auto) 0.2 % (0.0-4.3) 09/07/16 11:43 Baso % (Auto) 0.1 % (0.0-1.8) 09/07/16 11:43 Lymph # [employer] 09/13/16 04:00 [place] # 1.0 K/mm3 (0.0-0.8) H 09/07/16 11:43 Eos # 0.0 K/mm3 (0.0-0.4) 09/07/16 11:43 Baso # 0.0 K/mm3 (0.0-0.1) 09/07/16 11:43 Add Manual Diff Complete 09/14/16 04:07 Total Counted 100 09/14/16 04:07 Seg Neutrophils % [employer] 09/08/16 06:18 Seg Neuts % (Manual) 84.0 % (40.0-70.0) H 09/14/16 04:07 Band Neutrophils % 1.0 % 09/14/16 04:07 Lymphocytes % (Manual) 6.0 % (13.4-35.0) L 09/14/16 04:07 Reactive Lymphs % (Man) 0 % 09/14/16 04:07 Monocytes % (Manual) 9.0 % (0.0-7.3) H 09/14/16 04:07 Eosinophils % (Manual) 0 % (0.0-4.3) 09/14/16 04:07 Basophils % (Manual) 0 % (0.0-1.8) 09/14/16 04:07 Metamyelocytes % 0 % 09/14/16 04:07 Myelocytes % 0 % 09/14/16 04:07 Promyelocytes % 0 % 09/14/16 04:07 Blast Cells % 0 % 09/14/16 04:07 Nucleated RBC % Not Reportable 09/14/16 04:07 Seg Neutrophils # 16.6 K/mm3 (1.8-7.7) H 09/07/16 11:43 Seg Neutrophils # Man 24.7 K/mm3 (1.8-7.7) H 09/14/16 04:07 Band Neutrophils # 0.3 K/mm3 09/14/16 04:07 Lymphocytes # (Manual) 1.8 K/mm3 (1.2-5.4) 09/14/16 04:07 Abs React Lymphs (Man) 0.0 K/mm3 09/14/16 04:07 Monocytes # (Manual) 2.6 K/mm3 (0.0-0.8) H 09/14/16 04:07 Eosinophils # (Manual) 0.0 K/mm3 (0.0-0.4) 09/14/16 04:07 Basophils # (Manual) 0.0 K/mm3 (0.0-0.1) 09/14/16 04:07 Metamyelocytes # 0.0 K/mm3 09/14/16 04:07 Myelocytes # 0.0 K/mm3 09/14/16 04:07 Promyelocytes # 0.0 K/mm3 09/14/16 04:07 Blast Cells # 0.0 K/mm3 09/14/16 04:07 Pathologist Review 09/13/16 04:00 WBC Morphology Not Reportable 09/14/16 04:07 Hypersegmented Neuts Not Reportable 09/14/16 04:07 Hyposegmented Neuts Not Reportable 09/14/16 04:07 Hypogranular Neuts Not Reportable 09/14/16 04:07 Smudge Cells Not Reportable 09/14/16 04:07 Toxic Granulation Not Reportable 09/14/16 04:07 Toxic Vacuolation Not Reportable 09/14/16 04:07 Dohle Bodies Not Reportable 09/14/16 04:07 Pelger-Huet Anomaly Not Reportable 09/14/16 04:07 Jasmina Rods Not Reportable 09/14/16 04:07 Platelet Estimate Cons 09/14/16 04:07 Clumped Platelets Not Reportable 09/14/16 04:07 Plt Clumps, EDTA Not Reportable 09/14/16 04:07 Large Platelets Not Reportable 09/14/16 04:07 Giant Platelets Not Reportable 09/14/16 04:07 Platelet Satelliting Not Reportable 09/14/16 04:07 Plt Morphology Comment Not Reportable 09/14/16 04:07 RBC Morphology Not Reportable 09/14/16 04:07 Dimorphic RBCs Not Reportable 09/14/16 04:07 Polychromasia Not Reportable 09/14/16 04:07 Hypochromasia 1+ 09/14/16 04:07 Poikilocytosis Not Reportable 09/14/16 04:07 Anisocytosis 1+ 09/14/16 04:07 Microcytosis Not Reportable 09/14/16 04:07 Macrocytosis Not Reportable 09/14/16 04:07 Spherocytes Not Reportable 09/14/16 04:07 Pappenheimer Bodies Not Reportable 09/14/16 04:07 Sickle Cells Not Reportable 09/14/16 04:07 Target Cells Not Reportable 09/14/16 04:07 Tear Drop Cells Few 09/14/16 04:07 Ovalocytes Not Reportable 09/14/16 04:07 Helmet Cells Rare 09/14/16 04:07 [place] Bodies Not Reportable 09/14/16 04:07 [place] Rings Not Reportable 09/14/16 04:07 Chuck Cells Not Reportable 09/14/16 04:07 Bite Cells Not Reportable 09/14/16 04:07 Crenated Cell Not Reportable 09/14/16 04:07 Elliptocytes Not Reportable 09/14/16 04:07 Acanthocytes (Spur) Not Reportable 09/14/16 04:07 Rouleaux Not Reportable 09/14/16 04:07 Hemoglobin C Crystals Not Reportable 09/14/16 04:07 Schistocytes Not Reportable 09/14/16 04:07 Malaria parasites Not Reportable 09/14/16 04:07 ESR > 140.0 mm/Hr (0-20) 09/08/16 11:48 Jun Bodies Not Reportable 09/14/16 04:07 Hem Pathologist Commnt No 09/14/16 04:07 PT 13.8 Sec. (12.2-14.9) 09/15/16 05:00 INR 1.01 (0.87-1.13) 09/15/16 05:00 APTT 24.4 Sec. (24.2-36.6) 09/15/16 05:00 Thrombin Time 16.8 Sec. (15.1-19.6) 09/03/16 00:10 Fibrinogen 750 mg/dl (211-480) H 09/08/16 11:48 Lupus Anticoagulant see below 09/12/16 09:59 dRVVT Confirm Interp Positive (Negative) H 09/12/16 09:59 dRVVT Mix Interpret Corrected (CORRECTED) 09/12/16 09:59 Protein C Antigen 122 % (70-140) 09/08/16 15:35 Free Protein S 97 % normal (50-147) 09/08/16 15:35 Total Protein S 109 % (70-140) 09/08/16 15:35 Antithrombin III Ag 100 % (80-120) 09/08/16 15:35 Factor V Activity 182 % (65-150) H 09/08/16 15:35 POC ABG pH 7.342 (7.35-7.45) L 09/14/16 04:06 POC ABG pCO2 35.8 (35-45) 09/14/16 04:06 POC ABG pO2 116 (80-105) H 09/14/16 04:06 POC ABG HCO3 19.4 09/14/16 04:06 POC ABG Total CO2 20 09/14/16 04:06 POC ABG O2 Sat 98 09/14/16 04:06 POC ABG Base Excess -6 09/14/16 04:06 FiO2 30 % 09/14/16 04:06 Sodium 140 mmol/L (137-145) 09/15/16 05:00 Potassium 5.2 mmol/L (3.6-5.0) H 09/15/16 05:00 Chloride 104.7 mmol/L (98-107) 09/15/16 05:00 Carbon Dioxide 18 mmol/L (22-30) L 09/15/16 05:00 Anion Gap 23 mmol/L 09/15/16 05:00 BUN 139 mg/dL (7-17) H 09/15/16 05:00 Creatinine 3.7 mg/dL (0.7-1.2) H 09/15/16 05:00 Estimated GFR 16 ml/min 09/15/16 05:00 BUN/Creatinine Ratio 37.56 % 09/15/16 05:00 Glucose 227 mg/dL (65-100) H 09/15/16 05:00 POC Glucose 226 (70-105) H 09/15/16 05:17 Lactic Acid 1.00 mmol/L (0.7-2.0) 09/13/16 11:30 Calcium 8.3 mg/dL (8.4-10.2) L 09/15/16 05:00 Phosphorus 4.30 mg/dL (2.5-4.5) D 09/08/16 06:18 Magnesium 2.40 mg/dL (1.7-2.3) H 09/07/16 11:43 Total Bilirubin 0.30 mg/dL (0.1-1.2) 09/13/16 04:00 AST 20 units/L (5-40) 09/13/16 04:00 ALT 18 units/L (7-56) 09/13/16 04:00 Alkaline Phosphatase 72 units/L (35-129) 09/13/16 04:00 Ammonia 27.0 umol/L (25-60) 09/07/16 08:37 Total Creatine Kinase 67 units/L (30-135) 09/03/16 11:26 CK-MB (CK-2) 1.4 ng/mL (0.0-4.0) 09/03/16 11:26 CK-MB (CK-2) Rel Index 2.0 (0-4) 09/03/16 11:26 Troponin T < 0.010 ng/mL (0.00-0.029) 09/06/16 10:43 C-Reactive Protein 1.70 mg/dL (0.00-1.30) H 09/12/16 07:22 Total Protein 6.2 g/dL (6.3-8.2) L 09/13/16 04:00 Albumin 2.9 g/dL (3.9-5) L 09/13/16 04:00 Albumin/Globulin Ratio 0.9 % 09/13/16 04:00 Triglycerides 217 mg/dL (2-149) H 09/12/16 07:22 Cholesterol 189 mg/dL (50-199) 09/04/16 03:31 LDL Cholesterol Direct 126 mg/dL (50-130) 09/04/16 03:31 HDL Cholesterol 31 mg/dL (40-59) L 09/04/16 03:31 Cholesterol/HDL Ratio 6.09 % 09/04/16 03:31 TSH 1.010 mlU/mL (0.270-4.200) 09/07/16 08:37 HCG, Qual Negative (Negative) 09/03/16 00:10 Urine Color Yellow (Yellow) 09/09/16 14:13 Urine Turbidity Slightly-cloudy (Clear) 09/09/16 14:13 Urine pH 5.0 (5.0-7.0) 09/09/16 14:13 Ur Specific [place] 1.012 (1.003-1.030) 09/09/16 14:13 Urine Protein 30 mg/dl mg/dL (Negative) 09/09/16 14:13 Urine Glucose (UA) Neg mg/dL (Negative) 09/09/16 14:13 Urine Ketones Neg mg/dL (Negative) 09/09/16 14:13 Urine Blood Lg (Negative) 09/09/16 14:13 Urine Nitrite Neg (Negative) 09/09/16 14:13 Urine Bilirubin Neg (Negative) 09/09/16 14:13 Urine Urobilinogen < 2.0 mg/dL (<2.0) 09/09/16 14:13 Ur Leukocyte Esterase Sm (Negative) 09/09/16 14:13 Urine WBC (Auto) 25.0 /HPF (0.0-6.0) H 09/09/16 14:13 Urine RBC (Auto) > 182.0 /HPF (0.0-6.0) 09/09/16 14:13 Urine Bacteria (Auto) 1+ /HPF (Negative) 09/09/16 14:13 Urine WBC Clumps 2+ /HPF 09/07/16 02:47 Hyaline Casts 4 /LPF 09/07/16 02:47 Urine Mucus Few /HPF 09/09/16 14:13 Urine Eosinophils None seen (None Seen) 09/07/16 16:00 Urine Creatinine 66.3 mg/dL (0.1-20.0) H 09/07/16 16:00 Urine Sodium 22 mEq/L 09/07/16 16:00 Random Vancomycin 2.3 ug/mL (0-40.0) 09/09/16 03:00 Urine Opiates Screen Presumptive negative 09/03/16 15:11 Urine Methadone Screen Presumptive positive 09/03/16 15:11 Ur Barbiturates Screen Presumptive positive 09/03/16 15:11 Ur Phencyclidine Scrn Presumptive negative 09/03/16 15:11 Ur Amphetamines Screen Presumptive negative 09/03/16 15:11 U Benzodiazepines Scrn Presumptive negative 09/03/16 15:11 Urine Cocaine Screen Presumptive negative 09/03/16 15:11 U Marijuana (THC) Screen Presumptive positive 09/03/16 15:11 Drugs of Abuse Note Disclamer 09/03/16 15:11 Rheumatoid Factor 24 IU/ml (0-13) H 09/08/16 11:48 SAHIL Screen Negative (Negative) 09/07/16 09:20 Proteinase 3 (PR3) Ab <1.0 AI (<1.0) 09/07/16 09:20 Myeloperoxidase Ab <1.0 AI (<1.0) 09/07/16 09:20 Sjogren's Antibody <1.0 AI (<1.0) 09/08/16 15:35 Scl-70 Scleroderma Ab <1.0 AI (<1.0) 09/08/16 15:35 Centromere B Antibody <1.0 AI (<1.0) 09/08/16 12:02 Cardiolipid IgG Ab <14 GPL (<=14) 09/12/16 09:59 Cardiolipid IgA Ab <11 APL (<=11) 09/12/16 09:59 Cardiolipid IgM Ab <12 MPL (<=12) 09/12/16 09:59 Complement C3 148 mg/dL (90-180) 09/07/16 09:20 Complement C4 58 mg/dL (16-47) H 09/07/16 09:20 RPR Nonreactive (Nonreactive) 09/08/16 11:48 Hep Bs Antigen Non-reactive (Negative) 09/07/16 09:20 Hepatitis C Antibody Non-reactive (NonReactive) 09/07/16 09:20 HIV 1&2 Antibody Rapid Non react (Non React) 09/08/16 11:48 HIV P24 Antigen Non react (Non React) 09/08/16 11:48 Blood Type A POSITIVE 09/10/16 13:17 Antibody Screen TNR 09/10/16 13:17 DELORIS Antibody Screen Negative 09/10/16 13:17 Crossmatch See Detail 09/10/16 13:17
[2016-09-15] MEDS: ASPIRIN PO SCH (09:45)
[2016-09-15] MEDS: PEPCID FEEDTUBE SCH (09:46)
--- NOTE | 2016-09-15 09:53 | Progress Note ---
Subjective Principal diagnosis: Acute Respiratory Failure on MVS; Acute CVA; Acute Encephalopathy Interval history: Patient was seen today for follow-up of multiple renal related issues Events of 24 hours noted remains ventilator dependent, unresponsive does not follow commands She is currently being followed by multiple disciplines Vitals labs intake output and medications were reviewed Social history: Reviewed Family history: Reviewed Allergy: Reviewed Physical examination Vitals: Reviewed HEENT: Oral mucosa moist Neck: Supple no JVD Chest: She does have bilateral basilar crackles mostly on the right than left Heart: Regular rate and rhythm S1 and S2 heard Abdomen: Soft nontender no voluntary guarding rigidity rebound Extremity: Minimal edema dry skin Dermatology; dry skin no edema Neurological; encephalopathic dense Assessment and plan; Assessment and plan Acute on chronic renal failure; no emergent indication for renal replacement therapy bilateral atrophic kidneys noted on ultrasound suggestive of chronic kidney disease, family has been made aware about the degree and severity of renal dysfunction(her son), also has been explained about poor in general prognosis, baseline creatinine is around 1.7, she has multiple risk factors for progression of renal failure over time Noted to have renal artery stenosis likley causing labile HTN Creatinine has worsened mild hyperkalemia; will need to discuss with patient's son about the goal of care Accelerated hypertension occasional lability but overall doing better parameters have been given for blood pressure control, also affected by education Worsening leukocytosis, and the patient is currently ventilator dependent being followed by infectious disease as well as pulmonary and critical care, patient has been diagnosed with aspiration pneumonia Acute large CVA status post TPA, remains unresponsive followed by neurology Severe protein calorie malnutrition due to acute illness with many other health condition Respiratory failure/exhibition of COPD currently on ventilatory support I believe patient's prognosis in general appears to be very poor due to multiorgan problem I have discussed this in particular with patient's son at length during this admission left message for son to call me We'll continue to follow and make recommendation from renal standpoint Objective - Vital Signs Vital signs: Vital Signs - 12hr 09/14/16 09/14/16 09/14/16 22:00 22:30 23:00 Temperature Pulse Rate 114 H 115 H 126 H Pulse Rate [ Apical] Pulse Rate [ From Monitor] Respiratory 18 18 16 Rate Respiratory 18 Rate [ Generalized] Blood Pressure 89/43 102/48 116/74 O2 Sat by Pulse 99 98 99 Oximetry 09/14/16 09/14/16 09/14/16 23:30 23:50 23:55 Temperature 100.3 F H Pulse Rate 128 H 127 H Pulse Rate [ Apical] Pulse Rate [ From Monitor] Respiratory 18 Rate Respiratory Rate [ Generalized] Blood Pressure 124/64 104/54 O2 Sat by Pulse 98 97 Oximetry 09/15/16 09/15/16 09/15/16 00:00 00:30 01:00 Temperature Pulse Rate 121 H 118 H 128 H Pulse Rate [ 120 H Apical] Pulse Rate [ 121 H From Monitor] Respiratory 18 18 22 Rate Respiratory Rate [ Generalized] Blood Pressure 107/47 99/44 134/68 O2 Sat by Pulse 97 97 99 Oximetry 09/15/16 09/15/16 09/15/16 01:30 02:00 02:30 Temperature Pulse Rate 132 H 133 H 131 H Pulse Rate [ Apical] Pulse Rate [ From Monitor] Respiratory 18 15 18 Rate Respiratory Rate [ Generalized] Blood Pressure 139/68 134/66 152/65 O2 Sat by Pulse 99 98 97 Oximetry 09/15/16 09/15/16 09/15/16 03:00 03:22 03:30 Temperature 100.9 F H Pulse Rate 130 H 133 H Pulse Rate [ Apical] Pulse Rate [ From Monitor] Respiratory 18 19 Rate Respiratory Rate [ Generalized] Blood Pressure 117/60 118/59 O2 Sat by Pulse 96 96 Oximetry 09/15/16 09/15/16 09/15/16 04:00 04:18 04:30 Temperature Pulse Rate 127 H 133 H 125 H Pulse Rate [ 130 H Apical] Pulse Rate [ 133 H From Monitor] Respiratory 20 21 Rate Respiratory Rate [ Generalized] Blood Pressure 119/59 124/71 124/64 O2 Sat by Pulse 97 97 96 Oximetry 09/15/16 09/15/16 09/15/16 05:00 05:30 06:00 Temperature Pulse Rate 131 H 127 H 132 H Pulse Rate [ Apical] Pulse Rate [ From Monitor] Respiratory 21 18 18 Rate Respiratory Rate [ Generalized] Blood Pressure 123/67 103/60 127/66 O2 Sat by Pulse 97 96 96 Oximetry 09/15/16 09/15/16 09/15/16 06:30 07:00 07:41 Temperature Pulse Rate 135 H 135 H 188 H Pulse Rate [ Apical] Pulse Rate [ From Monitor] Respiratory 18 19 Rate Respiratory Rate [ Generalized] Blood Pressure 116/69 124/68 125/73 O2 Sat by Pulse 98 97 Oximetry 09/15/16 09/15/16 08:00 09:11 Temperature 100.3 F H Pulse Rate 118 H Pulse Rate [ Apical] Pulse Rate [ From Monitor] Respiratory Rate Respiratory Rate [ Generalized] Blood Pressure 174/89 O2 Sat by Pulse 99 Oximetry - Lab 09/15/16 05:00 09/15/16 05:00 Most recent lab results Calcium 8.3 mg/dL (8.4-10.2) L 09/15/16 05:00 Phosphorus 4.30 mg/dL (2.5-4.5) D 09/08/16 06:18 Magnesium 2.40 mg/dL (1.7-2.3) H 09/07/16 11:43 Urine Creatinine 66.3 mg/dL (0.1-20.0) H 09/07/16 16:00 Urine Sodium 22 mEq/L 09/07/16 16:00
[2016-09-15] MEDS: LEVEMIR (NF) SUB-Q SCH (10:24)
--- NOTE | 2016-09-15 10:41 | Progress Note ---
Assessment and Plan - Patient Problems (1) Acute respiratory failure with hypoxia Current Visit: Yes Status: Acute Plan to address problem: - continue aspiration precautions / address VAP bundles - continue to wean oxygen for MAP > 94% - continue bronchodilators and pulmonary toilet - will taper solumedrol (no active needs pulmonary-[place]) - complete empiric levaquin dosing - consult placed for trach and PEG placement - begin daytime PSV trials as tolerated while awaiting trach and PEG (2) Acute CVA (cerebrovascular accident) Current Visit: Yes Status: Acute Plan to address problem: - out of tpA window (initially stopped due to uncontrolled HTN) - Left MCA teritory stroke with some midline shift on last CT - seen by neurology and prognosis for recovery of mental status guarded to poor - optimizing secondary prevention modalities now (BP, lipid anti-platelet therapy) - will continue steroid taper (changed to p.o. prednisone today) (3) Hypertensive emergency Current Visit: Yes Status: Acute Plan to address problem: - resolved - continue clonidine patch at 0.3mg qweek - continue prn IV rescue labetalol - add metoprolol re: tachycardia also - started on minoxidil by nephrology - BP's better controlled (4) Obesity (BMI 35.0-39.9 without comorbidity) Current Visit: Yes Status: Chronic Plan to address problem: - adjust tube feeds per hammerer tab's recommendations - supportive and preventive skin care re: breakdown (5) Type 2 diabetes mellitus Current Visit: Yes Status: Chronic Qualifiers: Diabetes mellitus complication status: D Diabetes mellitus complication detail: D Diabetic retinopathy severity: D Proliferative retinopathy type: P Diabetes mellitus macular edema: D Diabetes mellitus chcf insulin use : D Laterality: L Chronic kidney disease stage: C Plan to address problem: - continue SSI - continue lantus at 5units sq q24h (6) Leukocytosis (leucocytosis) Current Visit: Yes Status: Acute Qualifiers: Leukocytosis type: leukemoid reaction Qualified Code(s): D72.823 - Leukemoid reaction Plan to address problem: - afebrile - ? leukemoid reaction - ? steroid leucocytosis - continue empiric levaquin - get CRP & lactate and trend - tapering systemic steroids - follow clinically - C-diff infection assay negative - ID consulted and on flagyl - WBC trending down - cultures NGTD (7) Discharge planning issues Current Visit: Yes Status: Acute Plan to address problem: - she remains critically ill on life sustaining interventions including MVS and at risk for further acute deterioration including .....awaiting trach and PEG ....LTAC thereafter ....30' CCT without overlap Subjective Date of service: 09/15/16 Principal diagnosis: Acute Respiratory Failure on MVS; Acute CVA; Acute Encephalopathy Interval history: Seen and examined at bedside; 24 hour events reviewed; nursing and respiratory care staff consulted; no adverse overnight events reported to me; no improvement in mental status; plavix held and tentatively for trach and PEG next week; No emesis or overt aspiration and no gross bleeding Objective Vital Signs - 12hr 09/14/16 09/14/16 09/14/16 23:00 23:30 23:50 Temperature Pulse Rate 126 H 128 H 127 H Pulse Rate [ Apical] Pulse Rate [ From Monitor] Respiratory 16 18 Rate Blood Pressure 116/74 124/64 104/54 O2 Sat by Pulse 99 98 97 Oximetry 09/14/16 09/15/16 09/15/16 23:55 00:00 00:30 Temperature 100.3 F H Pulse Rate 121 H 118 H Pulse Rate [ 120 H Apical] Pulse Rate [ 121 H From Monitor] Respiratory 18 18 Rate Blood Pressure 107/47 99/44 O2 Sat by Pulse 97 97 Oximetry 09/15/16 09/15/16 09/15/16 01:00 01:30 02:00 Temperature Pulse Rate 128 H 132 H 133 H Pulse Rate [ Apical] Pulse Rate [ From Monitor] Respiratory 22 18 15 Rate Blood Pressure 134/68 139/68 134/66 O2 Sat by Pulse 99 99 98 Oximetry 09/15/16 09/15/16 09/15/16 02:30 03:00 03:22 Temperature 100.9 F H Pulse Rate 131 H 130 H Pulse Rate [ Apical] Pulse Rate [ From Monitor] Respiratory 18 18 Rate Blood Pressure 152/65 117/60 O2 Sat by Pulse 97 96 Oximetry 09/15/16 09/15/16 09/15/16 03:30 04:00 04:18 Temperature Pulse Rate 133 H 127 H 133 H Pulse Rate [ 130 H Apical] Pulse Rate [ 133 H From Monitor] Respiratory 19 20 Rate Blood Pressure 118/59 119/59 124/71 O2 Sat by Pulse 96 97 97 Oximetry 09/15/16 09/15/16 09/15/16 04:30 05:00 05:30 Temperature Pulse Rate 125 H 131 H 127 H Pulse Rate [ Apical] Pulse Rate [ From Monitor] Respiratory 21 21 18 Rate Blood Pressure 124/64 123/67 103/60 O2 Sat by Pulse 96 97 96 Oximetry 09/15/16 09/15/16 09/15/16 06:00 06:30 07:00 Temperature Pulse Rate 132 H 135 H 135 H Pulse Rate [ Apical] Pulse Rate [ From Monitor] Respiratory 18 18 19 Rate Blood Pressure 127/66 116/69 124/68 O2 Sat by Pulse 96 98 97 Oximetry 09/15/16 09/15/16 09/15/16 07:41 08:00 09:11 Temperature 100.3 F H Pulse Rate 188 H 118 H Pulse Rate [ Apical] Pulse Rate [ From Monitor] Respiratory Rate Blood Pressure 125/73 174/89 O2 Sat by Pulse 99 Oximetry Constitutional: no acute distress, agitated, other (sedated) Eyes: non-icteric ENT: oropharynx moist Neck: supple, no lymphadenopathy Effort: normal Ascultation: Bilateral: diminished breath sounds, rhonchi Cardiovascular: regular rate and rhythm Gastrointestinal: normoactive bowel sounds, soft, non-tender, non-distended Integumentary: normal Extremities: no cyanosis, no edema, pulses normal, no ischemia or petechiae Neurologic: pupils equal and round, other (sedated) Psychiatric: other (unable to assess) CBC and BMP: 09/15/16 05:00 09/15/16 05:00 ABG, PT/INR, D-dimer: ABG POC ABG pH 7.342 (7.35-7.45) L 09/14/16 04:06 POC ABG pCO2 35.8 (35-45) 09/14/16 04:06 POC ABG pO2 116 (80-105) H 09/14/16 04:06 POC ABG HCO3 19.4 09/14/16 04:06 POC ABG Total CO2 20 09/14/16 04:06 POC ABG O2 Sat 98 09/14/16 04:06 PT/INR, D-dimer PT 13.8 Sec. (12.2-14.9) 09/15/16 05:00 INR 1.01 (0.87-1.13) 09/15/16 05:00 Abnormal lab findings: Abnormal Labs 09/03/16 09/03/16 09/03/16 12:12 15:07 16:20 WBC RBC Hgb Hct MCV MCH RDW Plt Count Lymph % (Auto) [place] # Seg Neutrophils % Seg Neuts % (Manual) Lymphocytes % (Manual) Monocytes % (Manual) Seg Neutrophils # Seg Neutrophils # Man Lymphocytes # (Manual) Monocytes # (Manual) Fibrinogen dRVVT Confirm Interp Factor V Activity POC ABG pH 7.452 H POC ABG pCO2 POC ABG pO2 Sodium Potassium Chloride Carbon Dioxide BUN Creatinine Glucose POC Glucose 178 H Calcium Phosphorus 2.20 L Magnesium 1.60 L C-Reactive Protein Total Protein Albumin Triglycerides HDL Cholesterol Urine WBC (Auto) Urine Creatinine Rheumatoid Factor Complement C4 Crossmatch 09/03/16 09/03/16 09/03/16 17:57 17:58 23:50 WBC RBC Hgb Hct MCV MCH RDW Plt Count Lymph % (Auto) [place] # Seg Neutrophils % Seg Neuts % (Manual) Lymphocytes % (Manual) Monocytes % (Manual) Seg Neutrophils # Seg Neutrophils # Man Lymphocytes # (Manual) Monocytes # (Manual) Fibrinogen dRVVT Confirm Interp Factor V Activity POC ABG pH POC ABG pCO2 POC ABG pO2 Sodium Potassium Chloride Carbon Dioxide BUN Creatinine Glucose POC Glucose 162 H 145 H Calcium Phosphorus 2.30 L Magnesium C-Reactive Protein Total Protein Albumin Triglycerides HDL Cholesterol Urine WBC (Auto) Urine Creatinine Rheumatoid Factor Complement C4 Crossmatch 09/04/16 09/04/16 09/04/16 03:31 03:31 05:42 WBC RBC Hgb 9.7 L D Hct MCV 72 L MCH 23 L RDW 17.5 H Plt Count Lymph % (Auto) 11.1 L [place] # Seg Neutrophils % 84.3 H Seg Neuts % (Manual) Lymphocytes % (Manual) Monocytes % (Manual) Seg Neutrophils # 8.9 H Seg Neutrophils # Man Lymphocytes # (Manual) Monocytes # (Manual) Fibrinogen dRVVT Confirm Interp Factor V Activity POC ABG pH POC ABG pCO2 POC ABG pO2 Sodium 135 L Potassium 2.9 L* Chloride 97.2 L Carbon Dioxide 19 L BUN Creatinine 1.7 H Glucose 170 H POC Glucose 152 H Calcium Phosphorus Magnesium C-Reactive Protein Total Protein Albumin Triglycerides 160 H HDL Cholesterol 31 L Urine WBC (Auto) Urine Creatinine Rheumatoid Factor Complement C4 Crossmatch 09/04/16 09/04/16 09/04/16 11:34 17:46 23:29 WBC RBC Hgb Hct MCV MCH RDW Plt Count Lymph % (Auto) [place] # Seg Neutrophils % Seg Neuts % (Manual) Lymphocytes % (Manual) Monocytes % (Manual) Seg Neutrophils # Seg Neutrophils # Man Lymphocytes # (Manual) Monocytes # (Manual) Fibrinogen dRVVT Confirm Interp Factor V Activity POC ABG pH POC ABG pCO2 POC ABG pO2 Sodium Potassium Chloride Carbon Dioxide BUN Creatinine Glucose POC Glucose 165 H 210 H 139 H Calcium Phosphorus Magnesium C-Reactive Protein Total Protein Albumin Triglycerides HDL Cholesterol Urine WBC (Auto) Urine Creatinine Rheumatoid Factor Complement C4 Crossmatch 09/05/16 09/05/16 09/05/16 04:05 04:05 05:38 WBC RBC Hgb Hct MCV 76 L D MCH 23 L RDW 17.8 H Plt Count Lymph % (Auto) [place] # Seg Neutrophils % Seg Neuts % (Manual) Lymphocytes % (Manual) Monocytes % (Manual) Seg Neutrophils # Seg Neutrophils # Man Lymphocytes # (Manual) Monocytes # (Manual) Fibrinogen dRVVT Confirm Interp Factor V Activity POC ABG pH POC ABG pCO2 POC ABG pO2 Sodium 134 L Potassium Chloride Carbon Dioxide 18 L BUN Creatinine 1.8 H Glucose 192 H POC Glucose 175 H Calcium Phosphorus Magnesium C-Reactive Protein Total Protein Albumin Triglycerides HDL Cholesterol Urine WBC (Auto) Urine Creatinine Rheumatoid Factor Complement C4 Crossmatch 09/05/16 09/05/16 09/05/16 11:38 17:48 23:22 WBC RBC Hgb Hct MCV MCH RDW Plt Count Lymph % (Auto) [place] # Seg Neutrophils % Seg Neuts % (Manual) Lymphocytes % (Manual) Monocytes % (Manual) Seg Neutrophils # Seg Neutrophils # Man Lymphocytes # (Manual) Monocytes # (Manual) Fibrinogen dRVVT Confirm Interp Factor V Activity POC ABG pH POC ABG pCO2 POC ABG pO2 Sodium Potassium Chloride Carbon Dioxide BUN Creatinine Glucose POC Glucose 164 H 186 H 195 H Calcium Phosphorus Magnesium C-Reactive Protein Total Protein Albumin Triglycerides HDL Cholesterol Urine WBC (Auto) Urine Creatinine Rheumatoid Factor Complement C4 Crossmatch 09/06/16 09/06/16 09/06/16 04:12 05:59 07:32 WBC RBC Hgb Hct MCV MCH RDW Plt Count Lymph % (Auto) [place] # Seg Neutrophils % Seg Neuts % (Manual) Lymphocytes % (Manual) Monocytes % (Manual) Seg Neutrophils # Seg Neutrophils # Man Lymphocytes # (Manual) Monocytes # (Manual) Fibrinogen dRVVT Confirm Interp Factor V Activity POC ABG pH 7.514 H POC ABG pCO2 29.1 L POC ABG pO2 72 L Sodium 133 L Potassium 3.4 L Chloride 94.9 L Carbon Dioxide 19 L BUN 30 H Creatinine 2.1 H Glucose 139 H POC Glucose 146 H Calcium Phosphorus Magnesium C-Reactive Protein Total Protein Albumin Triglycerides HDL Cholesterol Urine WBC (Auto) Urine Creatinine Rheumatoid Factor Complement C4 Crossmatch 09/06/16 09/06/16 09/06/16 11:57 17:58 19:02 WBC RBC Hgb Hct MCV MCH RDW Plt Count Lymph % (Auto) [place] # Seg Neutrophils % Seg Neuts % (Manual) Lymphocytes % (Manual) Monocytes % (Manual) Seg Neutrophils # Seg Neutrophils # Man Lymphocytes # (Manual) Monocytes # (Manual) Fibrinogen dRVVT Confirm Interp Factor V Activity POC ABG pH 7.465 H POC ABG pCO2 32.0 L POC ABG pO2 Sodium Potassium Chloride Carbon Dioxide BUN Creatinine Glucose POC Glucose 165 H 160 H Calcium Phosphorus Magnesium C-Reactive Protein Total Protein Albumin Triglycerides HDL Cholesterol Urine WBC (Auto) Urine Creatinine Rheumatoid Factor Complement C4 Crossmatch 09/06/16 09/07/16 09/07/16 23:45 02:47 02:47 WBC RBC Hgb Hct MCV MCH RDW Plt Count Lymph % (Auto) [place] # Seg Neutrophils % Seg Neuts % (Manual) Lymphocytes % (Manual) Monocytes % (Manual) Seg Neutrophils # Seg Neutrophils # Man Lymphocytes # (Manual) Monocytes # (Manual) Fibrinogen dRVVT Confirm Interp Factor V Activity POC ABG pH POC ABG pCO2 POC ABG pO2 Sodium Potassium Chloride Carbon Dioxide BUN Creatinine Glucose POC Glucose 204 H Calcium Phosphorus Magnesium C-Reactive Protein Total Protein Albumin Triglycerides HDL Cholesterol Urine WBC (Auto) 68.0 H Urine Creatinine 106.1 H Rheumatoid Factor Complement C4 Crossmatch 09/07/16 09/07/16 09/07/16 04:50 06:19 06:39 WBC RBC Hgb Hct MCV MCH RDW Plt Count Lymph % (Auto) [place] # Seg Neutrophils % Seg Neuts % (Manual) Lymphocytes % (Manual) Monocytes % (Manual) Seg Neutrophils # Seg Neutrophils # Man Lymphocytes # (Manual) Monocytes # (Manual) Fibrinogen dRVVT Confirm Interp Factor V Activity POC ABG pH 7.457 H POC ABG pCO2 32.1 L POC ABG pO2 76 L Sodium 132 L Potassium Chloride 94.7 L Carbon Dioxide BUN 53 H Creatinine 2.9 H Glucose 151 H POC Glucose 149 H Calcium Phosphorus Magnesium C-Reactive Protein Total Protein Albumin Triglycerides HDL Cholesterol Urine WBC (Auto) Urine Creatinine Rheumatoid Factor Complement C4 Crossmatch 09/07/16 09/07/16 09/07/16 09:20 11:43 11:43 WBC 19.4 H RBC Hgb 8.3 L Hct 26.4 L D MCV 72 L D MCH 22 L RDW 17.9 H Plt Count Lymph % (Auto) 8.5 L [place] # 1.0 H Seg Neutrophils % 85.8 H Seg Neuts % (Manual) Lymphocytes % (Manual) Monocytes % (Manual) Seg Neutrophils # 16.6 H Seg Neutrophils # Man Lymphocytes # (Manual) Monocytes # (Manual) Fibrinogen dRVVT Confirm Interp Factor V Activity POC ABG pH POC ABG pCO2 POC ABG pO2 Sodium 134 L Potassium Chloride 97.2 L Carbon Dioxide 20 L BUN 58 H Creatinine 2.9 H Glucose 147 H POC Glucose Calcium Phosphorus 2.40 L Magnesium 2.40 H C-Reactive Protein Total Protein 5.8 L Albumin 2.2 L Triglycerides HDL Cholesterol Urine WBC (Auto) Urine Creatinine Rheumatoid Factor Complement C4 58 H Crossmatch 09/07/16 09/07/16 09/07/16 11:50 16:00 17:31 WBC RBC Hgb Hct MCV MCH RDW Plt Count Lymph % (Auto) [place] # Seg Neutrophils % Seg Neuts % (Manual) Lymphocytes % (Manual) Monocytes % (Manual) Seg Neutrophils # Seg Neutrophils # Man Lymphocytes # (Manual) Monocytes # (Manual) Fibrinogen dRVVT Confirm Interp Factor V Activity POC ABG pH POC ABG pCO2 POC ABG pO2 158 H Sodium Potassium Chloride Carbon Dioxide BUN Creatinine Glucose POC Glucose 175 H Calcium Phosphorus Magnesium C-Reactive Protein Total Protein Albumin Triglycerides HDL Cholesterol Urine WBC (Auto) Urine Creatinine 66.3 H Rheumatoid Factor Complement C4 Crossmatch 09/07/16 09/08/16 09/08/16 23:50 05:46 06:18 WBC 17.8 H RBC 3.58 L Hgb 8.1 L Hct 25.5 L MCV 71 L MCH 23 L RDW 18.4 H Plt Count Lymph % (Auto) [place] # Seg Neutrophils % Seg Neuts % (Manual) 92.0 H Lymphocytes % (Manual) 6.0 L Monocytes % (Manual) Seg Neutrophils # Seg Neutrophils # Man 16.4 H Lymphocytes # (Manual) 1.1 L Monocytes # (Manual) Fibrinogen dRVVT Confirm Interp Factor V Activity POC ABG pH POC ABG pCO2 34.3 L POC ABG pO2 71 L Sodium Potassium Chloride Carbon Dioxide BUN Creatinine Glucose POC Glucose 216 H Calcium Phosphorus Magnesium C-Reactive Protein Total Protein Albumin Triglycerides HDL Cholesterol Urine WBC (Auto) Urine Creatinine Rheumatoid Factor Complement C4 Crossmatch 09/08/16 09/08/16 09/08/16 06:18 06:51 10:55 WBC RBC Hgb Hct MCV MCH RDW Plt Count Lymph % (Auto) [place] # Seg Neutrophils % Seg Neuts % (Manual) Lymphocytes % (Manual) Monocytes % (Manual) Seg Neutrophils # Seg Neutrophils # Man Lymphocytes # (Manual) Monocytes # (Manual) Fibrinogen dRVVT Confirm Interp Factor V Activity POC ABG pH POC ABG pCO2 POC ABG pO2 Sodium 133 L Potassium Chloride 96.9 L Carbon Dioxide 20 L BUN 63 H Creatinine 2.7 H Glucose 195 H POC Glucose 204 H 169 H Calcium Phosphorus Magnesium C-Reactive Protein Total Protein Albumin Triglycerides HDL Cholesterol Urine WBC (Auto) Urine Creatinine Rheumatoid Factor Complement C4 Crossmatch 09/08/16 09/08/16 09/08/16 11:48 11:48 11:48 WBC RBC Hgb Hct MCV MCH RDW Plt Count Lymph % (Auto) [place] # Seg Neutrophils % Seg Neuts % (Manual) Lymphocytes % (Manual) Monocytes % (Manual) Seg Neutrophils # Seg Neutrophils # Man Lymphocytes # (Manual) Monocytes # (Manual) Fibrinogen 750 H dRVVT Confirm Interp Factor V Activity POC ABG pH POC ABG pCO2 POC ABG pO2 Sodium Potassium Chloride Carbon Dioxide BUN Creatinine Glucose POC Glucose Calcium Phosphorus Magnesium C-Reactive Protein 15.70 H Total Protein Albumin Triglycerides HDL Cholesterol Urine WBC (Auto) Urine Creatinine Rheumatoid Factor 24 H Complement C4 Crossmatch 09/08/16 09/08/16 09/09/16 15:35 18:25 00:24 WBC RBC Hgb Hct MCV MCH RDW Plt Count Lymph % (Auto) [place] # Seg Neutrophils % Seg Neuts % (Manual) Lymphocytes % (Manual) Monocytes % (Manual) Seg Neutrophils # Seg Neutrophils # Man Lymphocytes # (Manual) Monocytes # (Manual) Fibrinogen dRVVT Confirm Interp Factor V Activity 182 H POC ABG pH POC ABG pCO2 POC ABG pO2 Sodium Potassium Chloride Carbon Dioxide BUN Creatinine Glucose POC Glucose 184 H 216 H Calcium Phosphorus Magnesium C-Reactive Protein Total Protein Albumin Triglycerides HDL Cholesterol Urine WBC (Auto) Urine Creatinine Rheumatoid Factor Complement C4 Crossmatch 09/09/16 09/09/16 09/09/16 03:00 03:00 04:04 WBC 27.9 H RBC Hgb 8.7 L Hct 28.1 L MCV 72 L MCH 22 L RDW 18.4 H Plt Count 485 H Lymph % (Auto) [place] # Seg Neutrophils % Seg Neuts % (Manual) 77.0 H Lymphocytes % (Manual) 9.0 L Monocytes % (Manual) Seg Neutrophils # Seg Neutrophils # Man 21.5 H Lymphocytes # (Manual) Monocytes # (Manual) 2.0 H Fibrinogen dRVVT Confirm Interp Factor V Activity POC ABG pH POC ABG pCO2 POC ABG pO2 121 H Sodium 135 L Potassium Chloride 96.3 L Carbon Dioxide 21 L BUN 83 H Creatinine 3.0 H Glucose 135 H POC Glucose Calcium Phosphorus Magnesium C-Reactive Protein Total Protein Albumin Triglycerides HDL Cholesterol Urine WBC (Auto) Urine Creatinine Rheumatoid Factor Complement C4 Crossmatch 09/09/16 09/09/16 09/09/16 05:41 11:55 14:13 WBC RBC Hgb Hct MCV MCH RDW Plt Count Lymph % (Auto) [place] # Seg Neutrophils % Seg Neuts % (Manual) Lymphocytes % (Manual) Monocytes % (Manual) Seg Neutrophils # Seg Neutrophils # Man Lymphocytes # (Manual) Monocytes # (Manual) Fibrinogen dRVVT Confirm Interp Factor V Activity POC ABG pH POC ABG pCO2 POC ABG pO2 Sodium Potassium Chloride Carbon Dioxide BUN Creatinine Glucose POC Glucose 155 H 186 H Calcium Phosphorus Magnesium C-Reactive Protein Total Protein Albumin Triglycerides HDL Cholesterol Urine WBC (Auto) 25.0 H Urine Creatinine Rheumatoid Factor Complement C4 Crossmatch 09/09/16 09/09/16 09/10/16 17:33 23:13 05:09 WBC RBC Hgb Hct MCV MCH RDW Plt Count Lymph % (Auto) [place] # Seg Neutrophils % Seg Neuts % (Manual) Lymphocytes % (Manual) Monocytes % (Manual) Seg Neutrophils # Seg Neutrophils # Man Lymphocytes # (Manual) Monocytes # (Manual) Fibrinogen dRVVT Confirm Interp Factor V Activity POC ABG pH POC ABG pCO2 POC ABG pO2 74 L Sodium Potassium Chloride Carbon Dioxide BUN Creatinine Glucose POC Glucose 211 H 215 H Calcium Phosphorus Magnesium C-Reactive Protein Total Protein Albumin Triglycerides HDL Cholesterol Urine WBC (Auto) Urine Creatinine Rheumatoid Factor Complement C4 Crossmatch 09/10/16 09/10/16 09/10/16 05:17 05:17 11:31 WBC 15.8 H RBC 3.25 L Hgb 7.3 L Hct 22.9 L MCV 71 L MCH 23 L RDW 18.4 H Plt Count Lymph % (Auto) [place] # Seg Neutrophils % Seg Neuts % (Manual) 91.0 H Lymphocytes % (Manual) 4.0 L Monocytes % (Manual) Seg Neutrophils # Seg Neutrophils # Man 14.4 H Lymphocytes # (Manual) 0.6 L Monocytes # (Manual) Fibrinogen dRVVT Confirm Interp Factor V Activity POC ABG pH POC ABG pCO2 POC ABG pO2 Sodium Potassium Chloride Carbon Dioxide 21 L BUN 93 H Creatinine 2.9 H Glucose 146 H POC Glucose 188 H Calcium 8.1 L Phosphorus Magnesium C-Reactive Protein Total Protein Albumin Triglycerides HDL Cholesterol Urine WBC (Auto) Urine Creatinine Rheumatoid Factor Complement C4 Crossmatch 09/10/16 09/10/16 09/10/16 13:17 17:20 23:32 WBC RBC Hgb Hct MCV MCH RDW Plt Count Lymph % (Auto) [place] # Seg Neutrophils % Seg Neuts % (Manual) Lymphocytes % (Manual) Monocytes % (Manual) Seg Neutrophils # Seg Neutrophils # Man Lymphocytes # (Manual) Monocytes # (Manual) Fibrinogen dRVVT Confirm Interp Factor V Activity POC ABG pH POC ABG pCO2 POC ABG pO2 Sodium Potassium Chloride Carbon Dioxide BUN Creatinine Glucose POC Glucose 199 H 186 H Calcium Phosphorus Magnesium C-Reactive Protein Total Protein Albumin Triglycerides HDL Cholesterol Urine WBC (Auto) Urine Creatinine Rheumatoid Factor Complement C4 Crossmatch See Detail 09/11/16 09/11/16 09/11/16 05:10 05:10 05:17 WBC 28.4 H RBC Hgb 9.2 L Hct 29.3 L D MCV 73 L MCH 23 L RDW 18.9 H Plt Count 452 H Lymph % (Auto) [place] # Seg Neutrophils % Seg Neuts % (Manual) 89.5 H Lymphocytes % (Manual) 2.0 L Monocytes % (Manual) Seg Neutrophils # Seg Neutrophils # Man 25.4 H Lymphocytes # (Manual) 0.6 L Monocytes # (Manual) 1.3 H Fibrinogen dRVVT Confirm Interp Factor V Activity POC ABG pH POC ABG pCO2 POC ABG pO2 Sodium 136 L Potassium Chloride Carbon Dioxide 18 L BUN 107 H Creatinine 2.6 H Glucose 187 H POC Glucose 230 H Calcium 8.3 L Phosphorus Magnesium C-Reactive Protein Total Protein Albumin Triglycerides HDL Cholesterol Urine WBC (Auto) Urine Creatinine Rheumatoid Factor Complement C4 Crossmatch 09/11/16 09/11/16 09/11/16 05:55 12:02 17:32 WBC RBC Hgb Hct MCV MCH RDW Plt Count Lymph % (Auto) [place] # Seg Neutrophils % Seg Neuts % (Manual) Lymphocytes % (Manual) Monocytes % (Manual) Seg Neutrophils # Seg Neutrophils # Man Lymphocytes # (Manual) Monocytes # (Manual) Fibrinogen dRVVT Confirm Interp Factor V Activity POC ABG pH POC ABG pCO2 33.8 L POC ABG pO2 Sodium Potassium Chloride Carbon Dioxide BUN Creatinine Glucose POC Glucose 191 H 239 H Calcium Phosphorus Magnesium C-Reactive Protein Total Protein Albumin Triglycerides HDL Cholesterol Urine WBC (Auto) Urine Creatinine Rheumatoid Factor Complement C4 Crossmatch 09/11/16 09/12/16 09/12/16 23:52 05:09 05:32 WBC RBC Hgb Hct MCV MCH RDW Plt Count Lymph % (Auto) [place] # Seg Neutrophils % Seg Neuts % (Manual) Lymphocytes % (Manual) Monocytes % (Manual) Seg Neutrophils # Seg Neutrophils # Man Lymphocytes # (Manual) Monocytes # (Manual) Fibrinogen dRVVT Confirm Interp Factor V Activity POC ABG pH POC ABG pCO2 34.6 L POC ABG pO2 Sodium Potassium Chloride Carbon Dioxide BUN Creatinine Glucose POC Glucose 265 H 184 H Calcium Phosphorus Magnesium C-Reactive Protein Total Protein Albumin Triglycerides HDL Cholesterol Urine WBC (Auto) Urine Creatinine Rheumatoid Factor Complement C4 Crossmatch 09/12/16 09/12/16 09/12/16 06:45 06:45 07:22 WBC 31.7 H RBC 3.54 L Hgb 8.3 L Hct 25.9 L MCV 73 L MCH 23 L RDW 18.9 H Plt Count Lymph % (Auto) [place] # Seg Neutrophils % Seg Neuts % (Manual) 88.5 H Lymphocytes % (Manual) 4.5 L Monocytes % (Manual) Seg Neutrophils # Seg Neutrophils # Man 28.1 H Lymphocytes # (Manual) Monocytes # (Manual) 1.0 H Fibrinogen dRVVT Confirm Interp Factor V Activity POC ABG pH POC ABG pCO2 POC ABG pO2 Sodium Potassium Chloride Carbon Dioxide 20 L BUN 115 H Creatinine 2.7 H Glucose 165 H POC Glucose Calcium 8.0 L Phosphorus Magnesium C-Reactive Protein Total Protein Albumin Triglycerides 217 H HDL Cholesterol Urine WBC (Auto) Urine Creatinine Rheumatoid Factor Complement C4 Crossmatch 09/12/16 09/12/16 09/12/16 07:22 09:59 12:21 WBC RBC Hgb Hct MCV MCH RDW Plt Count Lymph % (Auto) [place] # Seg Neutrophils % Seg Neuts % (Manual) Lymphocytes % (Manual) Monocytes % (Manual) Seg Neutrophils # Seg Neutrophils # Man Lymphocytes # (Manual) Monocytes # (Manual) Fibrinogen dRVVT Confirm Interp Positive H Factor V Activity POC ABG pH POC ABG pCO2 POC ABG pO2 Sodium Potassium Chloride Carbon Dioxide BUN Creatinine Glucose POC Glucose 224 H Calcium Phosphorus Magnesium C-Reactive Protein 1.70 H Total Protein Albumin Triglycerides HDL Cholesterol Urine WBC (Auto) Urine Creatinine Rheumatoid Factor Complement C4 Crossmatch 09/12/16 09/12/16 09/13/16 16:51 23:28 04:00 WBC 45.0 H* RBC Hgb 9.4 L Hct MCV 75 L MCH 23 L RDW 19.0 H Plt Count 470 H Lymph % (Auto) [place] # Seg Neutrophils % Seg Neuts % (Manual) 89.0 H Lymphocytes % (Manual) 5.0 L Monocytes % (Manual) Seg Neutrophils # Seg Neutrophils # Man 40.1 H Lymphocytes # (Manual) Monocytes # (Manual) Fibrinogen dRVVT Confirm Interp Factor V Activity POC ABG pH POC ABG pCO2 POC ABG pO2 Sodium Potassium Chloride Carbon Dioxide BUN Creatinine Glucose POC Glucose 169 H 150 H Calcium Phosphorus Magnesium C-Reactive Protein Total Protein Albumin Triglycerides HDL Cholesterol Urine WBC (Auto) Urine Creatinine Rheumatoid Factor Complement C4 Crossmatch 09/13/16 09/13/16 09/13/16 04:00 11:26 17:31 WBC RBC Hgb Hct MCV MCH RDW Plt Count Lymph % (Auto) [place] # Seg Neutrophils % Seg Neuts % (Manual) Lymphocytes % (Manual) Monocytes % (Manual) Seg Neutrophils # Seg Neutrophils # Man Lymphocytes # (Manual) Monocytes # (Manual) Fibrinogen dRVVT Confirm Interp Factor V Activity POC ABG pH POC ABG pCO2 POC ABG pO2 Sodium Potassium Chloride Carbon Dioxide 20 L BUN 116 H Creatinine 3.0 H Glucose 172 H POC Glucose 140 H 183 H Calcium Phosphorus Magnesium C-Reactive Protein Total Protein 6.2 L Albumin 2.9 L Triglycerides HDL Cholesterol Urine WBC (Auto) Urine Creatinine Rheumatoid Factor Complement C4 Crossmatch 09/13/16 09/14/16 09/14/16 23:23 04:06 04:07 WBC 29.4 H RBC Hgb 8.9 L Hct 27.3 L MCV 75 L MCH 24 L RDW 19.1 H Plt Count Lymph % (Auto) [place] # Seg Neutrophils % Seg Neuts % (Manual) 84.0 H Lymphocytes % (Manual) 6.0 L Monocytes % (Manual) 9.0 H Seg Neutrophils # Seg Neutrophils # Man 24.7 H Lymphocytes # (Manual) Monocytes # (Manual) 2.6 H Fibrinogen dRVVT Confirm Interp Factor V Activity POC ABG pH 7.342 L POC ABG pCO2 POC ABG pO2 116 H Sodium Potassium Chloride Carbon Dioxide BUN Creatinine Glucose POC Glucose 154 H Calcium Phosphorus Magnesium C-Reactive Protein Total Protein Albumin Triglycerides HDL Cholesterol Urine WBC (Auto) Urine Creatinine Rheumatoid Factor Complement C4 Crossmatch 09/14/16 09/14/16 09/14/16 04:07 05:29 12:19 WBC RBC Hgb Hct MCV MCH RDW Plt Count Lymph % (Auto) [place] # Seg Neutrophils % Seg Neuts % (Manual) Lymphocytes % (Manual) Monocytes % (Manual) Seg Neutrophils # Seg Neutrophils # Man Lymphocytes # (Manual) Monocytes # (Manual) Fibrinogen dRVVT Confirm Interp Factor V Activity POC ABG pH POC ABG pCO2 POC ABG pO2 Sodium 136 L Potassium Chloride Carbon Dioxide 18 L BUN 121 H Creatinine 2.8 H Glucose 214 H POC Glucose 239 H 181 H Calcium Phosphorus Magnesium C-Reactive Protein Total Protein Albumin Triglycerides HDL Cholesterol Urine WBC (Auto) Urine Creatinine Rheumatoid Factor Complement C4 Crossmatch 09/14/16 09/14/16 09/15/16 18:12 23:37 05:00 WBC 26.1 H RBC 3.05 L Hgb 7.2 L Hct 22.9 L MCV 75 L MCH 24 L RDW 19.0 H Plt Count Lymph % (Auto) [place] # Seg Neutrophils % Seg Neuts % (Manual) Lymphocytes % (Manual) Monocytes % (Manual) Seg Neutrophils # Seg Neutrophils # Man Lymphocytes # (Manual) Monocytes # (Manual) Fibrinogen dRVVT Confirm Interp Factor V Activity POC ABG pH POC ABG pCO2 POC ABG pO2 Sodium Potassium Chloride Carbon Dioxide BUN Creatinine Glucose POC Glucose 266 H 154 H Calcium Phosphorus Magnesium C-Reactive Protein Total Protein Albumin Triglycerides HDL Cholesterol Urine WBC (Auto) Urine Creatinine Rheumatoid Factor Complement C4 Crossmatch 09/15/16 09/15/16 05:00 05:17 WBC RBC Hgb Hct MCV MCH RDW Plt Count Lymph % (Auto) [place] # Seg Neutrophils % Seg Neuts % (Manual) Lymphocytes % (Manual) Monocytes % (Manual) Seg Neutrophils # Seg Neutrophils # Man Lymphocytes # (Manual) Monocytes # (Manual) Fibrinogen dRVVT Confirm Interp Factor V Activity POC ABG pH POC ABG pCO2 POC ABG pO2 Sodium Potassium 5.2 H Chloride Carbon Dioxide 18 L BUN 139 H Creatinine 3.7 H Glucose 227 H POC Glucose 226 H Calcium 8.3 L Phosphorus Magnesium C-Reactive Protein Total Protein Albumin Triglycerides HDL Cholesterol Urine WBC (Auto) Urine Creatinine Rheumatoid Factor Complement C4 Crossmatch Allied health notes reviewed: RT
[2016-09-15] MEDS: LONITEN PO SCH (12:37)
[2016-09-15] MEDS: ZOFRAN IV PRN (15:48)
--- NOTE | 2016-09-15 15:57 | Progress Note ---
Assessment and Plan - Patient Problems (1) Acute respiratory failure with hypoxia Current Visit: Yes Status: Acute Plan to address problem: Plavix held as of today Trach & PEG next week consent in chart We will schedule for next available time Subjective Date of service: 09/15/16 Patient Reports: Positive: other (remains on vent) Objective Vital Signs - 12hr 09/15/16 09/15/16 09/15/16 04:00 04:18 04:30 Temperature Pulse Rate 127 H 133 H 125 H Pulse Rate [ 130 H Apical] Pulse Rate [ 133 H From Monitor] Respiratory 20 21 Rate Blood Pressure 119/59 124/71 124/64 O2 Sat by Pulse 97 97 96 Oximetry 09/15/16 09/15/16 09/15/16 05:00 05:30 06:00 Temperature Pulse Rate 131 H 127 H 132 H Pulse Rate [ Apical] Pulse Rate [ From Monitor] Respiratory 21 18 18 Rate Blood Pressure 123/67 103/60 127/66 O2 Sat by Pulse 97 96 96 Oximetry 09/15/16 09/15/16 09/15/16 06:30 07:00 07:30 Temperature Pulse Rate 135 H 135 H 136 H Pulse Rate [ Apical] Pulse Rate [ From Monitor] Respiratory 18 19 26 H Rate Blood Pressure 116/69 124/68 125/73 O2 Sat by Pulse 98 97 97 Oximetry 09/15/16 09/15/16 09/15/16 07:41 08:00 08:05 Temperature 100.3 F H Pulse Rate 188 H 122 H Pulse Rate [ 130 H Apical] Pulse Rate [ 130 H From Monitor] Respiratory 18 18 Rate Blood Pressure 125/73 109/63 O2 Sat by Pulse 98 98 Oximetry 09/15/16 09/15/16 09/15/16 08:30 09:00 09:11 Temperature Pulse Rate 118 H 122 H 118 H Pulse Rate [ Apical] Pulse Rate [ From Monitor] Respiratory 18 17 Rate Blood Pressure 121/74 136/76 174/89 O2 Sat by Pulse 98 99 Oximetry 09/15/16 09/15/16 09/15/16 09:30 10:00 10:30 Temperature Pulse Rate 119 H 117 H 132 H Pulse Rate [ Apical] Pulse Rate [ From Monitor] Respiratory 13 24 20 Rate Blood Pressure 169/88 89/40 95/56 O2 Sat by Pulse 97 97 96 Oximetry 09/15/16 09/15/16 09/15/16 11:00 11:30 12:00 Temperature 100.5 F H Pulse Rate 127 H 122 H 126 H Pulse Rate [ Apical] Pulse Rate [ From Monitor] Respiratory 21 19 28 H Rate Blood Pressure 104/59 118/64 124/68 O2 Sat by Pulse 97 97 98 Oximetry 09/15/16 09/15/16 09/15/16 12:04 12:30 12:37 Temperature Pulse Rate 124 H 131 H 126 H Pulse Rate [ Apical] Pulse Rate [ From Monitor] Respiratory 27 H 24 Rate Blood Pressure 114/64 129/61 119/61 O2 Sat by Pulse 98 98 Oximetry 09/15/16 09/15/16 09/15/16 12:45 13:00 13:30 Temperature Pulse Rate 123 H 130 H Pulse Rate [ 129 H Apical] Pulse Rate [ 129 H From Monitor] Respiratory 34 H 23 36 H Rate Blood Pressure 132/72 146/71 O2 Sat by Pulse 97 97 97 Oximetry 09/15/16 09/15/16 14:00 14:39 Temperature Pulse Rate 133 H 144 H Pulse Rate [ Apical] Pulse Rate [ From Monitor] Respiratory 35 H Rate Blood Pressure 168/93 168/96 O2 Sat by Pulse 97 99 Oximetry - General physical appearance no distress - Neck trachea midline - Abdomen soft - Labs 09/15/16 05:00 09/15/16 05:00 Diabetes panel 09/15/16 Range/Units 05:00 Sodium 140 (137-145) mmol/L Potassium 5.2 H (3.6-5.0) mmol/L Chloride 104.7 (98-107) mmol/L Carbon Dioxide 18 L (22-30) mmol/L BUN 139 H (7-17) mg/dL Creatinine 3.7 H (0.7-1.2) mg/dL Glucose 227 H (65-100) mg/dL Calcium 8.3 L (8.4-10.2) mg/dL Calcium panel 09/15/16 Range/Units 05:00 Calcium 8.3 L (8.4-10.2) mg/dL Pituitary panel 09/15/16 Range/Units 05:00 Sodium 140 (137-145) mmol/L Potassium 5.2 H (3.6-5.0) mmol/L Chloride 104.7 (98-107) mmol/L Carbon Dioxide 18 L (22-30) mmol/L BUN 139 H (7-17) mg/dL Creatinine 3.7 H (0.7-1.2) mg/dL Glucose 227 H (65-100) mg/dL Calcium 8.3 L (8.4-10.2) mg/dL Adrenal panel 09/15/16 Range/Units 05:00 Sodium 140 (137-145) mmol/L Potassium 5.2 H (3.6-5.0) mmol/L Chloride 104.7 (98-107) mmol/L Carbon Dioxide 18 L (22-30) mmol/L BUN 139 H (7-17) mg/dL Creatinine 3.7 H (0.7-1.2) mg/dL Glucose 227 H (65-100) mg/dL Calcium 8.3 L (8.4-10.2) mg/dL
[2016-09-15] MEDS: HALDOL IV PRN (17:25)
[2016-09-15] MEDS: fentaNYL DRIP Premix 2,000 MCG/100 ML BAG IV SCH (17:29)
[2016-09-15] MEDS: DIPRIVAN 10 MG/ML 1,000 MG/100 ML BOTTLE IV SCH (18:17)
--- NOTE | 2016-09-15 18:32 | Progress Note ---
Assessment and Plan - Patient Problems (1) Leukocytosis (leucocytosis) Current Visit: Yes Status: Acute Qualifiers: Leukocytosis type: leukemoid reaction Qualified Code(s): D72.823 - Leukemoid reaction Plan to address problem: 1. Improved, though intermittent fever and tachycardic today. 2. Continue Flagyl and Vancomycin. 3. GI consulted to evaluate potential GI bleed. Subjective Date of service: 09/15/16 Principal diagnosis: Acute Respiratory Failure on MVS; Acute CVA; Acute Encephalopathy Interval history: Tachycardic with low-grade fevers today after a large episode of questionable hematemesis. Remains critically ill in ICU. Objective - Constitutional Vitals: Vital Signs Temp Pulse Resp BP Pulse Ox 100.5 F H 126 H 35 H 109/61 99 09/15/16 12:00 09/15/16 18:18 09/15/16 14:00 09/15/16 18:18 09/15/16 16:55 Temperature -Last 24 Hours Temperature 100.5 F Temperature 100.3 F Temperature 100.9 F Temperature 100.3 F Temperature 99.8 F General appearance: Present: mild distress, well-nourished - EENT ENT: other (NG tube with bilious, ques. feculent output) - Neck Neck: supple - Respiratory Respiratory effort: normal Respiratory: bilateral: CTA - Cardiovascular Rhythm: regular (tachycardic to 110s) Heart Sounds: Present: S1 & S2 Extremities: No edema - Gastrointestinal General gastrointestinal: Present: soft, non-distended, hypoactive bowel sounds Rectal Exam: other (rectal tube with melenic stool) - Genitourinary Female genitourinary: other ([place] with normal-appearing urine) - Integumentary Integumentary: no jaundice - Labs CBC & Chem 7: 09/15/16 05:00 09/15/16 05:00 Labs: Abnormal lab results 09/14/16 09/14/16 09/14/16 Range/Units 12:19 18:12 23:37 WBC (4.5-11.0) K/mm3 RBC (3.65-5.03) M/mm3 Hgb (10.1-14.3) gm/dl Hct (30.3-42.9) % MCV (79-97) fl MCH (28-32) pg RDW (13.2-15.2) % POC ABG pCO2 (35-45) POC ABG pO2 (80-105) Potassium (3.6-5.0) mmol/L Carbon Dioxide (22-30) mmol/L BUN (7-17) mg/dL Creatinine (0.7-1.2) mg/dL Glucose (65-100) mg/dL POC Glucose 181 H 266 H 154 H (70-105) Calcium (8.4-10.2) mg/dL 09/15/16 09/15/16 09/15/16 Range/Units 05:00 05:00 05:17 WBC 26.1 H (4.5-11.0) K/mm3 RBC 3.05 L (3.65-5.03) M/mm3 Hgb 7.2 L (10.1-14.3) gm/dl Hct 22.9 L (30.3-42.9) % MCV 75 L (79-97) fl MCH 24 L (28-32) pg RDW 19.0 H (13.2-15.2) % POC ABG pCO2 (35-45) POC ABG pO2 (80-105) Potassium 5.2 H (3.6-5.0) mmol/L Carbon Dioxide 18 L (22-30) mmol/L BUN 139 H (7-17) mg/dL Creatinine 3.7 H (0.7-1.2) mg/dL Glucose 227 H (65-100) mg/dL POC Glucose 226 H (70-105) Calcium 8.3 L (8.4-10.2) mg/dL 09/15/16 Range/Units 14:32 WBC (4.5-11.0) K/mm3 RBC (3.65-5.03) M/mm3 Hgb (10.1-14.3) gm/dl Hct (30.3-42.9) % MCV (79-97) fl MCH (28-32) pg RDW (13.2-15.2) % POC ABG pCO2 27.7 L (35-45) POC ABG pO2 120 H (80-105) Potassium (3.6-5.0) mmol/L Carbon Dioxide (22-30) mmol/L BUN (7-17) mg/dL Creatinine (0.7-1.2) mg/dL Glucose (65-100) mg/dL POC Glucose (70-105) Calcium (8.4-10.2) mg/dL Microbiology 09/13/16 10:30 Urine,[place] Urine Culture - Preliminary NO GROWTH AFTER 48 HOURS 09/13/16 09:04 Peripheral/Venous Blood Culture - Preliminary NO GROWTH AFTER 48 HOURS 09/13/16 08:39 Peripheral/Venous Blood Culture - Preliminary NO GROWTH AFTER 48 HOURS 09/13/16 14:06 Tracheal Aspirate Sputum Culture - Final 09/11/16 15:03 Stool C. difficile DNA Amplification - Final 09/10/16 10:58 Urine,Clean Catch Urine Culture - Preliminary NO GROWTH AFTER 48 HOURS 09/07/16 17:39 Tracheal Aspirate Sputum Culture - Final - Imaging and cardiology Chest x-ray: report reviewed ((09/14/16) - no significant interval change)
[2016-09-15] MEDS: PROTONIX IV SCH (22:41)
[2016-09-16] MEDS: fentaNYL DRIP Premix 2,000 MCG/100 ML BAG IV SCH ×2 (00:11→07:43)
[2016-09-16] MEDS: VANCOMYCIN PO FEEDTUBE SCH ×4 (00:12→18:02)
[2016-09-16] MEDS: HumuLIN R SUB-Q SCH ×4 (00:12→18:04)
[2016-09-16] MEDS: LOPRESSOR PO SCH ×4 (00:23→18:02)
[2016-09-16] MEDS: DIPRIVAN 10 MG/ML 1,000 MG/100 ML BOTTLE IV SCH (05:58)
[2016-09-16] MEDS: FLAGYL 500 MG/100 ML 500 MG/100 ML BAG IV SCH ×3 (06:00→22:39)
[2016-09-16] MEDS: HEPARIN SUB-Q SCH ×3 (06:01→22:34)
--- NOTE | 2016-09-16 09:29 | Progress Note ---
Assessment and Plan - Patient Problems (1) Acute respiratory failure with hypoxia Current Visit: Yes Status: Acute Plan to address problem: - continue aspiration precautions / address VAP bundles - continue to wean oxygen for MAP > 94% - continue bronchodilators and pulmonary toilet - will continue to taper solumedrol (no active needs pulmonary-[place]) - complete empiric levaquin dosing - consult placed for trach and PEG placement - continue daytime PSV trials as tolerated while awaiting trach and PEG (2) Acute CVA (cerebrovascular accident) Current Visit: Yes Status: Acute Plan to address problem: - out of tpA window (initially stopped due to uncontrolled HTN) - Left MCA teritory stroke with some midline shift on last CT - seen by neurology and prognosis for recovery of mental status guarded to poor - optimizing secondary prevention modalities now (BP, lipid anti-platelet therapy) - will continue steroid taper (changed to p.o. prednisone today) (3) Hypertensive emergency Current Visit: Yes Status: Acute Plan to address problem: - resolved - continue clonidine patch at 0.3mg qweek - continue prn IV rescue labetalol - add metoprolol re: tachycardia also - started on minoxidil by nephrology - BP's better controlled (4) Obesity (BMI 35.0-39.9 without comorbidity) Current Visit: Yes Status: Chronic Plan to address problem: - adjust tube feeds per boiler assistant operator's recommendations - supportive and preventive skin care re: breakdown (5) Type 2 diabetes mellitus Current Visit: Yes Status: Chronic Qualifiers: Diabetes mellitus complication status: D Diabetes mellitus complication detail: D Diabetic retinopathy severity: D Proliferative retinopathy type: P Diabetes mellitus macular edema: D Diabetes mellitus assisted insulin use : D Laterality: L Chronic kidney disease stage: C Plan to address problem: - continue SSI - continue lantus at 8 units sq q24h (6) Leukocytosis (leucocytosis) Current Visit: Yes Status: Acute Qualifiers: Leukocytosis type: leukemoid reaction Qualified Code(s): D72.823 - Leukemoid reaction Plan to address problem: - afebrile - ? leukemoid reaction - ? steroid leucocytosis - continue empiric levaquin - get CRP & lactate and trend - tapering systemic steroids - follow clinically - C-diff infection assay negative - ID consulted and on flagyl - WBC trending down - cultures NGTD (7) Discharge planning issues Current Visit: Yes Status: Acute Plan to address problem: - she remains critically ill on life sustaining interventions including MVS and at risk for further acute deterioration including .....awaiting trach and PEG ....LTAC thereafter ....30' CCT without overlap Subjective Date of service: 09/16/16 Principal diagnosis: Acute Respiratory Failure on MVS; Acute CVA; Acute Encephalopathy Interval history: Seen and examined at bedside; 24 hour events reviewed; nursing and respiratory care staff consulted; no adverse overnight events reported to me; remaisn on MVS ; tolerated PSV trials for only a few hours yesterday; AMS is persistent; no BRBPR but GI consulted for guaiac positive stools; NPO for now; no emesis or overt aspiration and no seizure activity; awaiting trach and PEG for next week Objective Vital Signs - 12hr 09/15/16 09/15/16 09/15/16 21:30 22:00 22:10 Temperature Pulse Rate 110 H 113 H 84 Pulse Rate [ From Monitor] Respiratory 14 14 Rate Respiratory Rate [ Generalized] Blood Pressure 145/75 144/74 O2 Sat by Pulse 97 99 100 Oximetry 09/15/16 09/15/16 09/15/16 22:24 22:30 23:00 Temperature Pulse Rate 112 H 109 H 112 H Pulse Rate [ From Monitor] Respiratory 14 13 14 Rate Respiratory Rate [ Generalized] Blood Pressure 134/66 114/58 101/50 O2 Sat by Pulse 99 99 96 Oximetry 09/15/16 09/15/16 09/15/16 23:05 23:30 23:55 Temperature 98.7 F Pulse Rate 85 129 H Pulse Rate [ From Monitor] Respiratory 14 14 Rate Respiratory 14 Rate [ Generalized] Blood Pressure 97/44 O2 Sat by Pulse 100 96 Oximetry 09/16/16 09/16/16 09/16/16 00:00 00:23 00:30 Temperature Pulse Rate 102 H 111 H 100 H Pulse Rate [ From Monitor] Respiratory 14 17 Rate Respiratory Rate [ Generalized] Blood Pressure 116/57 128/71 94/52 O2 Sat by Pulse 99 98 Oximetry 09/16/16 09/16/16 09/16/16 01:00 01:10 01:30 Temperature Pulse Rate 96 H 86 84 Pulse Rate [ From Monitor] Respiratory 14 14 Rate Respiratory Rate [ Generalized] Blood Pressure 102/50 101/49 104/47 O2 Sat by Pulse 98 99 Oximetry 09/16/16 09/16/16 09/16/16 02:00 02:30 03:00 Temperature Pulse Rate 85 84 89 Pulse Rate [ From Monitor] Respiratory 14 14 14 Rate Respiratory Rate [ Generalized] Blood Pressure 104/52 106/49 112/56 O2 Sat by Pulse 100 Oximetry 09/16/16 09/16/16 09/16/16 03:21 03:30 04:00 Temperature 98.8 F Pulse Rate 92 H 93 H Pulse Rate [ From Monitor] Respiratory 14 14 Rate Respiratory Rate [ Generalized] Blood Pressure 125/66 132/63 O2 Sat by Pulse 100 100 Oximetry 09/16/16 09/16/16 09/16/16 04:04 04:30 05:00 Temperature Pulse Rate 92 H 98 H 97 H Pulse Rate [ From Monitor] Respiratory 14 14 Rate Respiratory Rate [ Generalized] Blood Pressure 131/63 126/65 O2 Sat by Pulse 99 98 Oximetry 09/16/16 09/16/16 09/16/16 05:30 06:00 06:30 Temperature Pulse Rate 98 H 97 H 97 H Pulse Rate [ From Monitor] Respiratory 14 14 14 Rate Respiratory Rate [ Generalized] Blood Pressure 143/69 133/65 121/64 O2 Sat by Pulse 98 100 Oximetry 09/16/16 09/16/16 09/16/16 07:00 07:30 08:00 Temperature 98.7 F Pulse Rate 96 H 87 90 Pulse Rate [ 90 From Monitor] Respiratory 14 14 14 Rate Respiratory Rate [ Generalized] Blood Pressure 138/76 148/72 116/56 O2 Sat by Pulse 100 98 99 Oximetry 09/16/16 09/16/16 09/16/16 08:30 09:11 09:21 Temperature Pulse Rate 92 H 91 H 100 H Pulse Rate [ From Monitor] Respiratory 14 18 Rate Respiratory Rate [ Generalized] Blood Pressure 121/60 161/82 165/79 O2 Sat by Pulse 98 99 Oximetry Constitutional: no acute distress, agitated, other (encephalopathic) Eyes: non-icteric ENT: oropharynx moist Neck: supple, no lymphadenopathy Effort: normal Ascultation: Bilateral: diminished breath sounds, rhonchi Cardiovascular: regular rate and rhythm Gastrointestinal: normoactive bowel sounds, soft, non-tender, non-distended Integumentary: normal Extremities: no cyanosis, no edema, pulses normal, no ischemia or petechiae Neurologic: pupils equal and round, other (sedated) Psychiatric: other (unable to assess) CBC and BMP: 09/17/16 03:45 09/17/16 03:45 ABG, PT/INR, D-dimer: ABG POC ABG pH 7.440 (7.35-7.45) 09/15/16 14:32 POC ABG pCO2 27.7 (35-45) L 09/15/16 14:32 POC ABG pO2 120 (80-105) H 09/15/16 14:32 POC ABG HCO3 18.8 09/15/16 14:32 POC ABG Total CO2 20 09/15/16 14:32 POC ABG O2 Sat 99 09/15/16 14:32 PT/INR, D-dimer PT 13.8 Sec. (12.2-14.9) 09/15/16 05:00 INR 1.01 (0.87-1.13) 09/15/16 05:00 Abnormal lab findings: Abnormal Labs 09/03/16 09/03/16 09/03/16 12:12 15:07 16:20 WBC RBC Hgb Hct MCV MCH RDW Plt Count Lymph % (Auto) [place] # Seg Neutrophils % Seg Neuts % (Manual) Lymphocytes % (Manual) Monocytes % (Manual) Seg Neutrophils # Seg Neutrophils # Man Lymphocytes # (Manual) Monocytes # (Manual) Fibrinogen dRVVT Confirm Interp Factor V Activity POC ABG pH 7.452 H POC ABG pCO2 POC ABG pO2 Sodium Potassium Chloride Carbon Dioxide BUN Creatinine Glucose POC Glucose 178 H Calcium Phosphorus 2.20 L Magnesium 1.60 L C-Reactive Protein Total Protein Albumin Triglycerides HDL Cholesterol Urine WBC (Auto) Urine Creatinine Rheumatoid Factor Complement C4 Crossmatch 09/03/16 09/03/16 09/03/16 17:57 17:58 23:50 WBC RBC Hgb Hct MCV MCH RDW Plt Count Lymph % (Auto) [place] # Seg Neutrophils % Seg Neuts % (Manual) Lymphocytes % (Manual) Monocytes % (Manual) Seg Neutrophils # Seg Neutrophils # Man Lymphocytes # (Manual) Monocytes # (Manual) Fibrinogen dRVVT Confirm Interp Factor V Activity POC ABG pH POC ABG pCO2 POC ABG pO2 Sodium Potassium Chloride Carbon Dioxide BUN Creatinine Glucose POC Glucose 162 H 145 H Calcium Phosphorus 2.30 L Magnesium C-Reactive Protein Total Protein Albumin Triglycerides HDL Cholesterol Urine WBC (Auto) Urine Creatinine Rheumatoid Factor Complement C4 Crossmatch 09/04/16 09/04/16 09/04/16 03:31 03:31 05:42 WBC RBC Hgb 9.7 L D Hct MCV 72 L MCH 23 L RDW 17.5 H Plt Count Lymph % (Auto) 11.1 L [place] # Seg Neutrophils % 84.3 H Seg Neuts % (Manual) Lymphocytes % (Manual) Monocytes % (Manual) Seg Neutrophils # 8.9 H Seg Neutrophils # Man Lymphocytes # (Manual) Monocytes # (Manual) Fibrinogen dRVVT Confirm Interp Factor V Activity POC ABG pH POC ABG pCO2 POC ABG pO2 Sodium 135 L Potassium 2.9 L* Chloride 97.2 L Carbon Dioxide 19 L BUN Creatinine 1.7 H Glucose 170 H POC Glucose 152 H Calcium Phosphorus Magnesium C-Reactive Protein Total Protein Albumin Triglycerides 160 H HDL Cholesterol 31 L Urine WBC (Auto) Urine Creatinine Rheumatoid Factor Complement C4 Crossmatch 09/04/16 09/04/16 09/04/16 11:34 17:46 23:29 WBC RBC Hgb Hct MCV MCH RDW Plt Count Lymph % (Auto) [place] # Seg Neutrophils % Seg Neuts % (Manual) Lymphocytes % (Manual) Monocytes % (Manual) Seg Neutrophils # Seg Neutrophils # Man Lymphocytes # (Manual) Monocytes # (Manual) Fibrinogen dRVVT Confirm Interp Factor V Activity POC ABG pH POC ABG pCO2 POC ABG pO2 Sodium Potassium Chloride Carbon Dioxide BUN Creatinine Glucose POC Glucose 165 H 210 H 139 H Calcium Phosphorus Magnesium C-Reactive Protein Total Protein Albumin Triglycerides HDL Cholesterol Urine WBC (Auto) Urine Creatinine Rheumatoid Factor Complement C4 Crossmatch 09/05/16 09/05/16 09/05/16 04:05 04:05 05:38 WBC RBC Hgb Hct MCV 76 L D MCH 23 L RDW 17.8 H Plt Count Lymph % (Auto) [place] # Seg Neutrophils % Seg Neuts % (Manual) Lymphocytes % (Manual) Monocytes % (Manual) Seg Neutrophils # Seg Neutrophils # Man Lymphocytes # (Manual) Monocytes # (Manual) Fibrinogen dRVVT Confirm Interp Factor V Activity POC ABG pH POC ABG pCO2 POC ABG pO2 Sodium 134 L Potassium Chloride Carbon Dioxide 18 L BUN Creatinine 1.8 H Glucose 192 H POC Glucose 175 H Calcium Phosphorus Magnesium C-Reactive Protein Total Protein Albumin Triglycerides HDL Cholesterol Urine WBC (Auto) Urine Creatinine Rheumatoid Factor Complement C4 Crossmatch 09/05/16 09/05/16 09/05/16 11:38 17:48 23:22 WBC RBC Hgb Hct MCV MCH RDW Plt Count Lymph % (Auto) [place] # Seg Neutrophils % Seg Neuts % (Manual) Lymphocytes % (Manual) Monocytes % (Manual) Seg Neutrophils # Seg Neutrophils # Man Lymphocytes # (Manual) Monocytes # (Manual) Fibrinogen dRVVT Confirm Interp Factor V Activity POC ABG pH POC ABG pCO2 POC ABG pO2 Sodium Potassium Chloride Carbon Dioxide BUN Creatinine Glucose POC Glucose 164 H 186 H 195 H Calcium Phosphorus Magnesium C-Reactive Protein Total Protein Albumin Triglycerides HDL Cholesterol Urine WBC (Auto) Urine Creatinine Rheumatoid Factor Complement C4 Crossmatch 09/06/16 09/06/16 09/06/16 04:12 05:59 07:32 WBC RBC Hgb Hct MCV MCH RDW Plt Count Lymph % (Auto) [place] # Seg Neutrophils % Seg Neuts % (Manual) Lymphocytes % (Manual) Monocytes % (Manual) Seg Neutrophils # Seg Neutrophils # Man Lymphocytes # (Manual) Monocytes # (Manual) Fibrinogen dRVVT Confirm Interp Factor V Activity POC ABG pH 7.514 H POC ABG pCO2 29.1 L POC ABG pO2 72 L Sodium 133 L Potassium 3.4 L Chloride 94.9 L Carbon Dioxide 19 L BUN 30 H Creatinine 2.1 H Glucose 139 H POC Glucose 146 H Calcium Phosphorus Magnesium C-Reactive Protein Total Protein Albumin Triglycerides HDL Cholesterol Urine WBC (Auto) Urine Creatinine Rheumatoid Factor Complement C4 Crossmatch 09/06/16 09/06/16 09/06/16 11:57 17:58 19:02 WBC RBC Hgb Hct MCV MCH RDW Plt Count Lymph % (Auto) [place] # Seg Neutrophils % Seg Neuts % (Manual) Lymphocytes % (Manual) Monocytes % (Manual) Seg Neutrophils # Seg Neutrophils # Man Lymphocytes # (Manual) Monocytes # (Manual) Fibrinogen dRVVT Confirm Interp Factor V Activity POC ABG pH 7.465 H POC ABG pCO2 32.0 L POC ABG pO2 Sodium Potassium Chloride Carbon Dioxide BUN Creatinine Glucose POC Glucose 165 H 160 H Calcium Phosphorus Magnesium C-Reactive Protein Total Protein Albumin Triglycerides HDL Cholesterol Urine WBC (Auto) Urine Creatinine Rheumatoid Factor Complement C4 Crossmatch 09/06/16 09/07/16 09/07/16 23:45 02:47 02:47 WBC RBC Hgb Hct MCV MCH RDW Plt Count Lymph % (Auto) [place] # Seg Neutrophils % Seg Neuts % (Manual) Lymphocytes % (Manual) Monocytes % (Manual) Seg Neutrophils # Seg Neutrophils # Man Lymphocytes # (Manual) Monocytes # (Manual) Fibrinogen dRVVT Confirm Interp Factor V Activity POC ABG pH POC ABG pCO2 POC ABG pO2 Sodium Potassium Chloride Carbon Dioxide BUN Creatinine Glucose POC Glucose 204 H Calcium Phosphorus Magnesium C-Reactive Protein Total Protein Albumin Triglycerides HDL Cholesterol Urine WBC (Auto) 68.0 H Urine Creatinine 106.1 H Rheumatoid Factor Complement C4 Crossmatch 09/07/16 09/07/16 09/07/16 04:50 06:19 06:39 WBC RBC Hgb Hct MCV MCH RDW Plt Count Lymph % (Auto) [place] # Seg Neutrophils % Seg Neuts % (Manual) Lymphocytes % (Manual) Monocytes % (Manual) Seg Neutrophils # Seg Neutrophils # Man Lymphocytes # (Manual) Monocytes # (Manual) Fibrinogen dRVVT Confirm Interp Factor V Activity POC ABG pH 7.457 H POC ABG pCO2 32.1 L POC ABG pO2 76 L Sodium 132 L Potassium Chloride 94.7 L Carbon Dioxide BUN 53 H Creatinine 2.9 H Glucose 151 H POC Glucose 149 H Calcium Phosphorus Magnesium C-Reactive Protein Total Protein Albumin Triglycerides HDL Cholesterol Urine WBC (Auto) Urine Creatinine Rheumatoid Factor Complement C4 Crossmatch 09/07/16 09/07/16 09/07/16 09:20 11:43 11:43 WBC 19.4 H RBC Hgb 8.3 L Hct 26.4 L D MCV 72 L D MCH 22 L RDW 17.9 H Plt Count Lymph % (Auto) 8.5 L [place] # 1.0 H Seg Neutrophils % 85.8 H Seg Neuts % (Manual) Lymphocytes % (Manual) Monocytes % (Manual) Seg Neutrophils # 16.6 H Seg Neutrophils # Man Lymphocytes # (Manual) Monocytes # (Manual) Fibrinogen dRVVT Confirm Interp Factor V Activity POC ABG pH POC ABG pCO2 POC ABG pO2 Sodium 134 L Potassium Chloride 97.2 L Carbon Dioxide 20 L BUN 58 H Creatinine 2.9 H Glucose 147 H POC Glucose Calcium Phosphorus 2.40 L Magnesium 2.40 H C-Reactive Protein Total Protein 5.8 L Albumin 2.2 L Triglycerides HDL Cholesterol Urine WBC (Auto) Urine Creatinine Rheumatoid Factor Complement C4 58 H Crossmatch 07/09/07/16 09/07/16 11:50 16:00 17:31 WBC RBC Hgb Hct MCV MCH RDW Plt Count Lymph % (Auto) [place] # Seg Neutrophils % Seg Neuts % (Manual) Lymphocytes % (Manual) Monocytes % (Manual) Seg Neutrophils # Seg Neutrophils # Man Lymphocytes # (Manual) Monocytes # (Manual) Fibrinogen dRVVT Confirm Interp Factor V Activity POC ABG pH POC ABG pCO2 POC ABG pO2 158 H Sodium Potassium Chloride Carbon Dioxide BUN Creatinine Glucose POC Glucose 175 H Calcium Phosphorus Magnesium C-Reactive Protein Total Protein Albumin Triglycerides HDL Cholesterol Urine WBC (Auto) Urine Creatinine 66.3 H Rheumatoid Factor Complement C4 Crossmatch 09/07/16 09/08/16 09/08/16 23:50 05:46 06:18 WBC 17.8 H RBC 3.58 L Hgb 8.1 L Hct 25.5 L MCV 71 L MCH 23 L RDW 18.4 H Plt Count Lymph % (Auto) [place] # Seg Neutrophils % Seg Neuts % (Manual) 92.0 H Lymphocytes % (Manual) 6.0 L Monocytes % (Manual) Seg Neutrophils # Seg Neutrophils # Man 16.4 H Lymphocytes # (Manual) 1.1 L Monocytes # (Manual) Fibrinogen dRVVT Confirm Interp Factor V Activity POC ABG pH POC ABG pCO2 34.3 L POC ABG pO2 71 L Sodium Potassium Chloride Carbon Dioxide BUN Creatinine Glucose POC Glucose 216 H Calcium Phosphorus Magnesium C-Reactive Protein Total Protein Albumin Triglycerides HDL Cholesterol Urine WBC (Auto) Urine Creatinine Rheumatoid Factor Complement C4 Crossmatch 09/08/16 09/08/16 09/08/16 06:18 06:51 10:55 WBC RBC Hgb Hct MCV MCH RDW Plt Count Lymph % (Auto) [place] # Seg Neutrophils % Seg Neuts % (Manual) Lymphocytes % (Manual) Monocytes % (Manual) Seg Neutrophils # Seg Neutrophils # Man Lymphocytes # (Manual) Monocytes # (Manual) Fibrinogen dRVVT Confirm Interp Factor V Activity POC ABG pH POC ABG pCO2 POC ABG pO2 Sodium 133 L Potassium Chloride 96.9 L Carbon Dioxide 20 L BUN 63 H Creatinine 2.7 H Glucose 195 H POC Glucose 204 H 169 H Calcium Phosphorus Magnesium C-Reactive Protein Total Protein Albumin Triglycerides HDL Cholesterol Urine WBC (Auto) Urine Creatinine Rheumatoid Factor Complement C4 Crossmatch 09/08/16 09/08/16 09/08/16 11:48 11:48 11:48 WBC RBC Hgb Hct MCV MCH RDW Plt Count Lymph % (Auto) [place] # Seg Neutrophils % Seg Neuts % (Manual) Lymphocytes % (Manual) Monocytes % (Manual) Seg Neutrophils # Seg Neutrophils # Man Lymphocytes # (Manual) Monocytes # (Manual) Fibrinogen 750 H dRVVT Confirm Interp Factor V Activity POC ABG pH POC ABG pCO2 POC ABG pO2 Sodium Potassium Chloride Carbon Dioxide BUN Creatinine Glucose POC Glucose Calcium Phosphorus Magnesium C-Reactive Protein 15.70 H Total Protein Albumin Triglycerides HDL Cholesterol Urine WBC (Auto) Urine Creatinine Rheumatoid Factor 24 H Complement C4 Crossmatch 09/08/16 09/08/16 09/09/16 15:35 18:25 00:24 WBC RBC Hgb Hct MCV MCH RDW Plt Count Lymph % (Auto) [place] # Seg Neutrophils % Seg Neuts % (Manual) Lymphocytes % (Manual) Monocytes % (Manual) Seg Neutrophils # Seg Neutrophils # Man Lymphocytes # (Manual) Monocytes # (Manual) Fibrinogen dRVVT Confirm Interp Factor V Activity 182 H POC ABG pH POC ABG pCO2 POC ABG pO2 Sodium Potassium Chloride Carbon Dioxide BUN Creatinine Glucose POC Glucose 184 H 216 H Calcium Phosphorus Magnesium C-Reactive Protein Total Protein Albumin Triglycerides HDL Cholesterol Urine WBC (Auto) Urine Creatinine Rheumatoid Factor Complement C4 Crossmatch 09/09/16 09/09/16 09/09/16 03:00 03:00 04:04 WBC 27.9 H RBC Hgb 8.7 L Hct 28.1 L MCV 72 L MCH 22 L RDW 18.4 H Plt Count 485 H Lymph % (Auto) [place] # Seg Neutrophils % Seg Neuts % (Manual) 77.0 H Lymphocytes % (Manual) 9.0 L Monocytes % (Manual) Seg Neutrophils # Seg Neutrophils # Man 21.5 H Lymphocytes # (Manual) Monocytes # (Manual) 2.0 H Fibrinogen dRVVT Confirm Interp Factor V Activity POC ABG pH POC ABG pCO2 POC ABG pO2 121 H Sodium 135 L Potassium Chloride 96.3 L Carbon Dioxide 21 L BUN 83 H Creatinine 3.0 H Glucose 135 H POC Glucose Calcium Phosphorus Magnesium C-Reactive Protein Total Protein Albumin Triglycerides HDL Cholesterol Urine WBC (Auto) Urine Creatinine Rheumatoid Factor Complement C4 Crossmatch 09/09/16 09/09/16 09/09/16 05:41 11:55 14:13 WBC RBC Hgb Hct MCV MCH RDW Plt Count Lymph % (Auto) [place] # Seg Neutrophils % Seg Neuts % (Manual) Lymphocytes % (Manual) Monocytes % (Manual) Seg Neutrophils # Seg Neutrophils # Man Lymphocytes # (Manual) Monocytes # (Manual) Fibrinogen dRVVT Confirm Interp Factor V Activity POC ABG pH POC ABG pCO2 POC ABG pO2 Sodium Potassium Chloride Carbon Dioxide BUN Creatinine Glucose POC Glucose 155 H 186 H Calcium Phosphorus Magnesium C-Reactive Protein Total Protein Albumin Triglycerides HDL Cholesterol Urine WBC (Auto) 25.0 H Urine Creatinine Rheumatoid Factor Complement C4 Crossmatch 09/09/16 09/09/16 09/10/16 17:33 23:13 05:09 WBC RBC Hgb Hct MCV MCH RDW Plt Count Lymph % (Auto) [place] # Seg Neutrophils % Seg Neuts % (Manual) Lymphocytes % (Manual) Monocytes % (Manual) Seg Neutrophils # Seg Neutrophils # Man Lymphocytes # (Manual) Monocytes # (Manual) Fibrinogen dRVVT Confirm Interp Factor V Activity POC ABG pH POC ABG pCO2 POC ABG pO2 74 L Sodium Potassium Chloride Carbon Dioxide BUN Creatinine Glucose POC Glucose 211 H 215 H Calcium Phosphorus Magnesium C-Reactive Protein Total Protein Albumin Triglycerides HDL Cholesterol Urine WBC (Auto) Urine Creatinine Rheumatoid Factor Complement C4 Crossmatch 09/10/16 09/10/16 09/10/16 05:17 05:17 11:31 WBC 15.8 H RBC 3.25 L Hgb 7.3 L Hct 22.9 L MCV 71 L MCH 23 L RDW 18.4 H Plt Count Lymph % (Auto) [place] # Seg Neutrophils % Seg Neuts % (Manual) 91.0 H Lymphocytes % (Manual) 4.0 L Monocytes % (Manual) Seg Neutrophils # Seg Neutrophils # Man 14.4 H Lymphocytes # (Manual) 0.6 L Monocytes # (Manual) Fibrinogen dRVVT Confirm Interp Factor V Activity POC ABG pH POC ABG pCO2 POC ABG pO2 Sodium Potassium Chloride Carbon Dioxide 21 L BUN 93 H Creatinine 2.9 H Glucose 146 H POC Glucose 188 H Calcium 8.1 L Phosphorus Magnesium C-Reactive Protein Total Protein Albumin Triglycerides HDL Cholesterol Urine WBC (Auto) Urine Creatinine Rheumatoid Factor Complement C4 Crossmatch 09/10/16 09/10/16 09/10/16 13:17 17:20 23:32 WBC RBC Hgb Hct MCV MCH RDW Plt Count Lymph % (Auto) [place] # Seg Neutrophils % Seg Neuts % (Manual) Lymphocytes % (Manual) Monocytes % (Manual) Seg Neutrophils # Seg Neutrophils # Man Lymphocytes # (Manual) Monocytes # (Manual) Fibrinogen dRVVT Confirm Interp Factor V Activity POC ABG pH POC ABG pCO2 POC ABG pO2 Sodium Potassium Chloride Carbon Dioxide BUN Creatinine Glucose POC Glucose 199 H 186 H Calcium Phosphorus Magnesium C-Reactive Protein Total Protein Albumin Triglycerides HDL Cholesterol Urine WBC (Auto) Urine Creatinine Rheumatoid Factor Complement C4 Crossmatch See Detail 09/11/16 09/11/16 09/11/16 05:10 05:10 05:17 WBC 28.4 H RBC Hgb 9.2 L Hct 29.3 L D MCV 73 L MCH 23 L RDW 18.9 H Plt Count 452 H Lymph % (Auto) [place] # Seg Neutrophils % Seg Neuts % (Manual) 89.5 H Lymphocytes % (Manual) 2.0 L Monocytes % (Manual) Seg Neutrophils # Seg Neutrophils # Man 25.4 H Lymphocytes # (Manual) 0.6 L Monocytes # (Manual) 1.3 H Fibrinogen dRVVT Confirm Interp Factor V Activity POC ABG pH POC ABG pCO2 POC ABG pO2 Sodium 136 L Potassium Chloride Carbon Dioxide 18 L BUN 107 H Creatinine 2.6 H Glucose 187 H POC Glucose 230 H Calcium 8.3 L Phosphorus Magnesium C-Reactive Protein Total Protein Albumin Triglycerides HDL Cholesterol Urine WBC (Auto) Urine Creatinine Rheumatoid Factor Complement C4 Crossmatch 09/11/16 09/11/16 09/11/16 05:55 12:02 17:32 WBC RBC Hgb Hct MCV MCH RDW Plt Count Lymph % (Auto) [place] # Seg Neutrophils % Seg Neuts % (Manual) Lymphocytes % (Manual) Monocytes % (Manual) Seg Neutrophils # Seg Neutrophils # Man Lymphocytes # (Manual) Monocytes # (Manual) Fibrinogen dRVVT Confirm Interp Factor V Activity POC ABG pH POC ABG pCO2 33.8 L POC ABG pO2 Sodium Potassium Chloride Carbon Dioxide BUN Creatinine Glucose POC Glucose 191 H 239 H Calcium Phosphorus Magnesium C-Reactive Protein Total Protein Albumin Triglycerides HDL Cholesterol Urine WBC (Auto) Urine Creatinine Rheumatoid Factor Complement C4 Crossmatch 09/11/16 09/12/16 09/12/16 23:52 05:09 05:32 WBC RBC Hgb Hct MCV MCH RDW Plt Count Lymph % (Auto) [place] # Seg Neutrophils % Seg Neuts % (Manual) Lymphocytes % (Manual) Monocytes % (Manual) Seg Neutrophils # Seg Neutrophils # Man Lymphocytes # (Manual) Monocytes # (Manual) Fibrinogen dRVVT Confirm Interp Factor V Activity POC ABG pH POC ABG pCO2 34.6 L POC ABG pO2 Sodium Potassium Chloride Carbon Dioxide BUN Creatinine Glucose POC Glucose 265 H 184 H Calcium Phosphorus Magnesium C-Reactive Protein Total Protein Albumin Triglycerides HDL Cholesterol Urine WBC (Auto) Urine Creatinine Rheumatoid Factor Complement C4 Crossmatch 09/12/16 09/12/16 09/12/16 06:45 06:45 07:22 WBC 31.7 H RBC 3.54 L Hgb 8.3 L Hct 25.9 L MCV 73 L MCH 23 L RDW 18.9 H Plt Count Lymph % (Auto) [place] # Seg Neutrophils % Seg Neuts % (Manual) 88.5 H Lymphocytes % (Manual) 4.5 L Monocytes % (Manual) Seg Neutrophils # Seg Neutrophils # Man 28.1 H Lymphocytes # (Manual) Monocytes # (Manual) 1.0 H Fibrinogen dRVVT Confirm Interp Factor V Activity POC ABG pH POC ABG pCO2 POC ABG pO2 Sodium Potassium Chloride Carbon Dioxide 20 L BUN 115 H Creatinine 2.7 H Glucose 165 H POC Glucose Calcium 8.0 L Phosphorus Magnesium C-Reactive Protein Total Protein Albumin Triglycerides 217 H HDL Cholesterol Urine WBC (Auto) Urine Creatinine Rheumatoid Factor Complement C4 Crossmatch 09/12/16 09/12/16 09/12/16 07:22 09:59 12:21 WBC RBC Hgb Hct MCV MCH RDW Plt Count Lymph % (Auto) [place] # Seg Neutrophils % Seg Neuts % (Manual) Lymphocytes % (Manual) Monocytes % (Manual) Seg Neutrophils # Seg Neutrophils # Man Lymphocytes # (Manual) Monocytes # (Manual) Fibrinogen dRVVT Confirm Interp Positive H Factor V Activity POC ABG pH POC ABG pCO2 POC ABG pO2 Sodium Potassium Chloride Carbon Dioxide BUN Creatinine Glucose POC Glucose 224 H Calcium Phosphorus Magnesium C-Reactive Protein 1.70 H Total Protein Albumin Triglycerides HDL Cholesterol Urine WBC (Auto) Urine Creatinine Rheumatoid Factor Complement C4 Crossmatch 09/12/16 09/12/16 09/13/16 16:51 23:28 04:00 WBC 45.0 H* RBC Hgb 9.4 L Hct MCV 75 L MCH 23 L RDW 19.0 H Plt Count 470 H Lymph % (Auto) [place] # Seg Neutrophils % Seg Neuts % (Manual) 89.0 H Lymphocytes % (Manual) 5.0 L Monocytes % (Manual) Seg Neutrophils # Seg Neutrophils # Man 40.1 H Lymphocytes # (Manual) Monocytes # (Manual) Fibrinogen dRVVT Confirm Interp Factor V Activity POC ABG pH POC ABG pCO2 POC ABG pO2 Sodium Potassium Chloride Carbon Dioxide BUN Creatinine Glucose POC Glucose 169 H 150 H Calcium Phosphorus Magnesium C-Reactive Protein Total Protein Albumin Triglycerides HDL Cholesterol Urine WBC (Auto) Urine Creatinine Rheumatoid Factor Complement C4 Crossmatch 09/13/16 09/13/16 09/13/16 04:00 11:26 17:31 WBC RBC Hgb Hct MCV MCH RDW Plt Count Lymph % (Auto) [place] # Seg Neutrophils % Seg Neuts % (Manual) Lymphocytes % (Manual) Monocytes % (Manual) Seg Neutrophils # Seg Neutrophils # Man Lymphocytes # (Manual) Monocytes # (Manual) Fibrinogen dRVVT Confirm Interp Factor V Activity POC ABG pH POC ABG pCO2 POC ABG pO2 Sodium Potassium Chloride Carbon Dioxide 20 L BUN 116 H Creatinine 3.0 H Glucose 172 H POC Glucose 140 H 183 H Calcium Phosphorus Magnesium C-Reactive Protein Total Protein 6.2 L Albumin 2.9 L Triglycerides HDL Cholesterol Urine WBC (Auto) Urine Creatinine Rheumatoid Factor Complement C4 Crossmatch 09/13/16 09/14/16 09/14/16 23:23 04:06 04:07 WBC 29.4 H RBC Hgb 8.9 L Hct 27.3 L MCV 75 L MCH 24 L RDW 19.1 H Plt Count Lymph % (Auto) [place] # Seg Neutrophils % Seg Neuts % (Manual) 84.0 H Lymphocytes % (Manual) 6.0 L Monocytes % (Manual) 9.0 H Seg Neutrophils # Seg Neutrophils # Man 24.7 H Lymphocytes # (Manual) Monocytes # (Manual) 2.6 H Fibrinogen dRVVT Confirm Interp Factor V Activity POC ABG pH 7.342 L POC ABG pCO2 POC ABG pO2 116 H Sodium Potassium Chloride Carbon Dioxide BUN Creatinine Glucose POC Glucose 154 H Calcium Phosphorus Magnesium C-Reactive Protein Total Protein Albumin Triglycerides HDL Cholesterol Urine WBC (Auto) Urine Creatinine Rheumatoid Factor Complement C4 Crossmatch 09/14/16 09/14/16 09/14/16 04:07 05:29 12:19 WBC RBC Hgb Hct MCV MCH RDW Plt Count Lymph % (Auto) [place] # Seg Neutrophils % Seg Neuts % (Manual) Lymphocytes % (Manual) Monocytes % (Manual) Seg Neutrophils # Seg Neutrophils # Man Lymphocytes # (Manual) Monocytes # (Manual) Fibrinogen dRVVT Confirm Interp Factor V Activity POC ABG pH POC ABG pCO2 POC ABG pO2 Sodium 136 L Potassium Chloride Carbon Dioxide 18 L BUN 121 H Creatinine 2.8 H Glucose 214 H POC Glucose 239 H 181 H Calcium Phosphorus Magnesium C-Reactive Protein Total Protein Albumin Triglycerides HDL Cholesterol Urine WBC (Auto) Urine Creatinine Rheumatoid Factor Complement C4 Crossmatch 09/14/16 09/14/16 09/15/16 18:12 23:37 05:00 WBC 26.1 H RBC 3.05 L Hgb 7.2 L Hct 22.9 L MCV 75 L MCH 24 L RDW 19.0 H Plt Count Lymph % (Auto) [place] # Seg Neutrophils % Seg Neuts % (Manual) Lymphocytes % (Manual) Monocytes % (Manual) Seg Neutrophils # Seg Neutrophils # Man Lymphocytes # (Manual) Monocytes # (Manual) Fibrinogen dRVVT Confirm Interp Factor V Activity POC ABG pH POC ABG pCO2 POC ABG pO2 Sodium Potassium Chloride Carbon Dioxide BUN Creatinine Glucose POC Glucose 266 H 154 H Calcium Phosphorus Magnesium C-Reactive Protein Total Protein Albumin Triglycerides HDL Cholesterol Urine WBC (Auto) Urine Creatinine Rheumatoid Factor Complement C4 Crossmatch 09/15/16 09/15/16 09/15/16 05:00 05:17 12:45 WBC RBC Hgb Hct MCV MCH RDW Plt Count Lymph % (Auto) [place] # Seg Neutrophils % Seg Neuts % (Manual) Lymphocytes % (Manual) Monocytes % (Manual) Seg Neutrophils # Seg Neutrophils # Man Lymphocytes # (Manual) Monocytes # (Manual) Fibrinogen dRVVT Confirm Interp Factor V Activity POC ABG pH POC ABG pCO2 POC ABG pO2 Sodium Potassium 5.2 H Chloride Carbon Dioxide 18 L BUN 139 H Creatinine 3.7 H Glucose 227 H POC Glucose 226 H 244 H Calcium 8.3 L Phosphorus Magnesium C-Reactive Protein Total Protein Albumin Triglycerides HDL Cholesterol Urine WBC (Auto) Urine Creatinine Rheumatoid Factor Complement C4 Crossmatch 09/15/16 09/15/16 09/15/16 14:32 17:33 23:35 WBC RBC Hgb Hct MCV MCH RDW Plt Count Lymph % (Auto) [place] # Seg Neutrophils % Seg Neuts % (Manual) Lymphocytes % (Manual) Monocytes % (Manual) Seg Neutrophils # Seg Neutrophils # Man Lymphocytes # (Manual) Monocytes # (Manual) Fibrinogen dRVVT Confirm Interp Factor V Activity POC ABG pH POC ABG pCO2 27.7 L POC ABG pO2 120 H Sodium Potassium Chloride Carbon Dioxide BUN Creatinine Glucose POC Glucose 232 H 167 H Calcium Phosphorus Magnesium C-Reactive Protein Total Protein Albumin Triglycerides HDL Cholesterol Urine WBC (Auto) Urine Creatinine Rheumatoid Factor Complement C4 Crossmatch 09/16/16 03:58 WBC RBC Hgb Hct MCV MCH RDW Plt Count Lymph % (Auto) [place] # Seg Neutrophils % Seg Neuts % (Manual) Lymphocytes % (Manual) Monocytes % (Manual) Seg Neutrophils # Seg Neutrophils # Man Lymphocytes # (Manual) Monocytes # (Manual) Fibrinogen dRVVT Confirm Interp Factor V Activity POC ABG pH POC ABG pCO2 POC ABG pO2 Sodium Potassium Chloride Carbon Dioxide BUN Creatinine Glucose POC Glucose 146 H Calcium Phosphorus Magnesium C-Reactive Protein Total Protein Albumin Triglycerides HDL Cholesterol Urine WBC (Auto) Urine Creatinine Rheumatoid Factor Complement C4 Crossmatch Chest x-ray: image reviewed Allied health notes reviewed: RT
--- NOTE | 2016-09-16 09:33 | Progress Note ---
Assessment and Plan Assessment and plan: --Anemia hemoglobin 6.4 Heme-positive stool ,GI evaluation, transfuse 2 units of PRBC Closely monitor H&H. 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/encephalopathy Aspirin/statin/supportive care --Acute hypoxic respiratory failure on mechanical ventilation > 96 hours Vent dependent, unable to wean, Possible trach and PEG if unable to wean --Aspiration pneumonia Continue current antibiotics , cultures negative to date --Acute exacerbation of COPD; Nebulizers tapering dose of steroids antibiotics and ventilatory support, pulmonary following --Hypertensive emergency off Cardene drip Her blood pressures are reasonable level, --Acute on chronic kidney disease stage III Gentle hydration closely monitor renal function and avoid nephrotoxic medications Nephrology following --leukocytosis; Trending down , C. difficile negative --2 diabetes mellitus; Accu-Chek sliding scale coverage and ADA diet and insulin as needed --Moderate to severe protein calorie malnutrition with albumin of 2.2 Nutritional supplements, tube feeding, supportive care --DVT prophylaxis with heparin --Full CODE STATUS Consults and recommendations noted and appreciated Closely monitor the patient and adjust the management as needed Plan of care discussed with the patient's nurse Critical Care time 31 minutes The high probability of a clinically significant, sudden or life threatening deterioration of the [cardiovascular, pulmonary, infectious, renal and neurological] system(s) required my full and direct attention, intervention and personal management. The aggregate critical care time was [31] minutes. This time is in addition to time spent performing reported procedures but includes the following: [] Data Review and interpretation [] Patient assessment and monitoring of vital signs [] Documentation [] Medication orders and management History Interval history: Patient seen and evaluated medical records reviewed Remains intubated on ventilatory support H&H significantly dropped Patient is not in distress vital signs reviewed Hospitalist Physical - Constitutional Vitals: Temp Pulse Resp BP Pulse Ox 98.7 F 100 H 18 165/79 99 09/16/16 08:00 09/16/16 09:21 09/16/16 09:21 09/16/16 09:21 09/16/16 09:21 General appearance: Present: no acute distress, well-nourished, other ( intubated on vent) - EENT Eyes: Present: PERRL, EOM intact - Neck Neck: Present: supple, normal ROM - Respiratory Respiratory effort: normal Respiratory: bilateral: diminished, negative: rales, rhonchi, wheezing - Cardiovascular Rhythm: regular Heart Sounds: Present: S1 & S2 - Extremities Extremities: no ischemia, pulses intact, pulses symmetrical - Abdominal General gastrointestinal: soft, non-tender, non-distended, normal bowel sounds - Integumentary Integumentary: Present: clear, warm - Psychiatric Psychiatric: other (noncommunicative) - Neurologic Neurologic: other (noncommunicative) Results - Labs CBC & Chem 7: 09/16/16 10:27 09/16/16 10:27 Labs: Laboratory Last Values WBC 26.1 K/mm3 (4.5-11.0) H 09/15/16 05:00 RBC 3.05 M/mm3 (3.65-5.03) L 09/15/16 05:00 Hgb 7.2 gm/dl (10.1-14.3) L 09/15/16 05:00 Hct 22.9 % (30.3-42.9) L 09/15/16 05:00 MCV 75 fl (79-97) L 09/15/16 05:00 MCH 24 pg (28-32) L 09/15/16 05:00 MCHC 31 % (30-34) 09/15/16 05:00 RDW 19.0 % (13.2-15.2) H 09/15/16 05:00 Plt Count 233 K/mm3 (140-440) 09/15/16 05:00 Lymph % (Auto) 8.5 % (13.4-35.0) L 09/07/16 11:43 [place] % (Auto) 5.4 % (0.0-7.3) 09/07/16 11:43 Eos % (Auto) 0.2 % (0.0-4.3) 09/07/16 11:43 Baso % (Auto) 0.1 % (0.0-1.8) 09/07/16 11:43 Lymph # Tax Compliance Agent 09/13/16 04:00 [place] # 1.0 K/mm3 (0.0-0.8) H 09/07/16 11:43 Eos # 0.0 K/mm3 (0.0-0.4) 09/07/16 11:43 Baso # 0.0 K/mm3 (0.0-0.1) 09/07/16 11:43 Add Manual Diff Complete 09/14/16 04:07 Total Counted 100 09/14/16 04:07 Seg Neutrophils % Tax Compliance Agent 09/08/16 06:18 Seg Neuts % (Manual) 84.0 % (40.0-70.0) H 09/14/16 04:07 Band Neutrophils % 1.0 % 09/14/16 04:07 Lymphocytes % (Manual) 6.0 % (13.4-35.0) L 09/14/16 04:07 Reactive Lymphs % (Man) 0 % 09/14/16 04:07 Monocytes % (Manual) 9.0 % (0.0-7.3) H 09/14/16 04:07 Eosinophils % (Manual) 0 % (0.0-4.3) 09/14/16 04:07 Basophils % (Manual) 0 % (0.0-1.8) 09/14/16 04:07 Metamyelocytes % 0 % 09/14/16 04:07 Myelocytes % 0 % 09/14/16 04:07 Promyelocytes % 0 % 09/14/16 04:07 Blast Cells % 0 % 09/14/16 04:07 Nucleated RBC % Not Reportable 09/14/16 04:07 Seg Neutrophils # 16.6 K/mm3 (1.8-7.7) H 09/07/16 11:43 Seg Neutrophils # Man 24.7 K/mm3 (1.8-7.7) H 09/14/16 04:07 Band Neutrophils # 0.3 K/mm3 09/14/16 04:07 Lymphocytes # (Manual) 1.8 K/mm3 (1.2-5.4) 09/14/16 04:07 Abs React Lymphs (Man) 0.0 K/mm3 09/14/16 04:07 Monocytes # (Manual) 2.6 K/mm3 (0.0-0.8) H 09/14/16 04:07 Eosinophils # (Manual) 0.0 K/mm3 (0.0-0.4) 09/14/16 04:07 Basophils # (Manual) 0.0 K/mm3 (0.0-0.1) 09/14/16 04:07 Metamyelocytes # 0.0 K/mm3 09/14/16 04:07 Myelocytes # 0.0 K/mm3 09/14/16 04:07 Promyelocytes # 0.0 K/mm3 09/14/16 04:07 Blast Cells # 0.0 K/mm3 09/14/16 04:07 Pathologist Review 09/13/16 04:00 WBC Morphology Not Reportable 09/14/16 04:07 Hypersegmented Neuts Not Reportable 09/14/16 04:07 Hyposegmented Neuts Not Reportable 09/14/16 04:07 Hypogranular Neuts Not Reportable 09/14/16 04:07 Smudge Cells Not Reportable 09/14/16 04:07 Toxic Granulation Not Reportable 09/14/16 04:07 Toxic Vacuolation Not Reportable 09/14/16 04:07 Dohle Bodies Not Reportable 09/14/16 04:07 Pelger-Huet Anomaly Not Reportable 09/14/16 04:07 Jasmina Rods Not Reportable 09/14/16 04:07 Platelet Estimate Cons 09/14/16 04:07 Clumped Platelets Not Reportable 09/14/16 04:07 Plt Clumps, EDTA Not Reportable 09/14/16 04:07 Large Platelets Not Reportable 09/14/16 04:07 Giant Platelets Not Reportable 09/14/16 04:07 Platelet Satelliting Not Reportable 09/14/16 04:07 Plt Morphology Comment Not Reportable 09/14/16 04:07 RBC Morphology Not Reportable 09/14/16 04:07 Dimorphic RBCs Not Reportable 09/14/16 04:07 Polychromasia Not Reportable 09/14/16 04:07 Hypochromasia 1+ 09/14/16 04:07 Poikilocytosis Not Reportable 09/14/16 04:07 Anisocytosis 1+ 09/14/16 04:07 Microcytosis Not Reportable 09/14/16 04:07 Macrocytosis Not Reportable 09/14/16 04:07 Spherocytes Not Reportable 09/14/16 04:07 Pappenheimer Bodies Not Reportable 09/14/16 04:07 Sickle Cells Not Reportable 09/14/16 04:07 Target Cells Not Reportable 09/14/16 04:07 Tear Drop Cells Few 09/14/16 04:07 Ovalocytes Not Reportable 09/14/16 04:07 Helmet Cells Rare 09/14/16 04:07 [place] Bodies Not Reportable 09/14/16 04:07 [place] Rings Not Reportable 09/14/16 04:07 [place] Cells Not Reportable 09/14/16 04:07 Bite Cells Not Reportable 09/14/16 04:07 Crenated Cell Not Reportable 09/14/16 04:07 Elliptocytes Not Reportable 09/14/16 04:07 Acanthocytes (Spur) Not Reportable 09/14/16 04:07 Rouleaux Not Reportable 09/14/16 04:07 Hemoglobin C Crystals Not Reportable 09/14/16 04:07 Schistocytes Not Reportable 09/14/16 04:07 Malaria parasites Not Reportable 09/14/16 04:07 ESR > 140.0 mm/Hr (0-20) 09/08/16 11:48 Jun Bodies Not Reportable 09/14/16 04:07 Hem Pathologist Commnt No 09/14/16 04:07 PT 13.8 Sec. (12.2-14.9) 09/15/16 05:00 INR 1.01 (0.87-1.13) 09/15/16 05:00 APTT 24.4 Sec. (24.2-36.6) 09/15/16 05:00 Thrombin Time 16.8 Sec. (15.1-19.6) 09/03/16 00:10 Fibrinogen 750 mg/dl (211-480) H 09/08/16 11:48 Lupus Anticoagulant see below 09/12/16 09:59 LA PTT Baseline See scanned report 09/12/16 09:59 dRVVT Confirm Interp Positive (Negative) H 09/12/16 09:59 dRVVT Screen 50:50 See scanned report 09/12/16 09:59 dRVVT Mix Interpret See scanned report 09/12/16 09:59 Protein C Antigen 122 % (70-140) 09/08/16 15:35 Free Protein S 97 % normal (50-147) 09/08/16 15:35 Total Protein S 109 % (70-140) 09/08/16 15:35 Antithrombin III Ag 100 % (80-120) 09/08/16 15:35 Factor V Activity 182 % (65-150) H 09/08/16 15:35 POC ABG pH 7.440 (7.35-7.45) 09/15/16 14:32 POC ABG pCO2 27.7 (35-45) L 09/15/16 14:32 POC ABG pO2 120 (80-105) H 09/15/16 14:32 POC ABG HCO3 18.8 09/15/16 14:32 POC ABG Total CO2 20 09/15/16 14:32 POC ABG O2 Sat 99 09/15/16 14:32 POC ABG Base Excess -5 09/15/16 14:32 FiO2 30 % 09/15/16 14:32 Sodium 140 mmol/L (137-145) 09/15/16 05:00 Potassium 5.2 mmol/L (3.6-5.0) H 09/15/16 05:00 Chloride 104.7 mmol/L (98-107) 09/15/16 05:00 Carbon Dioxide 18 mmol/L (22-30) L 09/15/16 05:00 Anion Gap 23 mmol/L 09/15/16 05:00 BUN 139 mg/dL (7-17) H 09/15/16 05:00 Creatinine 3.7 mg/dL (0.7-1.2) H 09/15/16 05:00 Estimated GFR 16 ml/min 09/15/16 05:00 BUN/Creatinine Ratio 37.56 % 09/15/16 05:00 Glucose 227 mg/dL (65-100) H 09/15/16 05:00 POC Glucose 146 (70-105) H 09/16/16 03:58 Lactic Acid 1.00 mmol/L (0.7-2.0) 09/13/16 11:30 Calcium 8.3 mg/dL (8.4-10.2) L 09/15/16 05:00 Phosphorus 4.30 mg/dL (2.5-4.5) D 09/08/16 06:18 Magnesium 2.40 mg/dL (1.7-2.3) H 09/07/16 11:43 Total Bilirubin 0.30 mg/dL (0.1-1.2) 09/13/16 04:00 AST 20 units/L (5-40) 09/13/16 04:00 ALT 18 units/L (7-56) 09/13/16 04:00 Alkaline Phosphatase 72 units/L (35-129) 09/13/16 04:00 Ammonia 27.0 umol/L (25-60) 09/07/16 08:37 Total Creatine Kinase 67 units/L (30-135) 09/03/16 11:26 CK-MB (CK-2) 1.4 ng/mL (0.0-4.0) 09/03/16 11:26 CK-MB (CK-2) Rel Index 2.0 (0-4) 09/03/16 11:26 Troponin T < 0.010 ng/mL (0.00-0.029) 09/06/16 10:43 C-Reactive Protein 1.70 mg/dL (0.00-1.30) H 09/12/16 07:22 Total Protein 6.2 g/dL (6.3-8.2) L 09/13/16 04:00 Albumin 2.9 g/dL (3.9-5) L 09/13/16 04:00 Albumin/Globulin Ratio 0.9 % 09/13/16 04:00 Triglycerides 217 mg/dL (2-149) H 09/12/16 07:22 Cholesterol 189 mg/dL (50-199) 09/04/16 03:31 LDL Cholesterol Direct 126 mg/dL (50-130) 09/04/16 03:31 HDL Cholesterol 31 mg/dL (40-59) L 09/04/16 03:31 Cholesterol/HDL Ratio 6.09 % 09/04/16 03:31 Angiotensin Convert Enz See scanned report 09/08/16 11:48 TSH 1.010 mlU/mL (0.270-4.200) 09/07/16 08:37 HCG, Qual Negative (Negative) 09/03/16 00:10 Urine Color Yellow (Yellow) 09/09/16 14:13 Urine Turbidity Slightly-cloudy (Clear) 09/09/16 14:13 Urine pH 5.0 (5.0-7.0) 09/09/16 14:13 Ur Specific [place] 1.012 (1.003-1.030) 09/09/16 14:13 Urine Protein 30 mg/dl mg/dL (Negative) 09/09/16 14:13 Urine Glucose (UA) Neg mg/dL (Negative) 09/09/16 14:13 Urine Ketones Neg mg/dL (Negative) 09/09/16 14:13 Urine Blood Lg (Negative) 09/09/16 14:13 Urine Nitrite Neg (Negative) 09/09/16 14:13 Urine Bilirubin Neg (Negative) 09/09/16 14:13 Urine Urobilinogen < 2.0 mg/dL (<2.0) 09/09/16 14:13 Ur Leukocyte Esterase Sm (Negative) 09/09/16 14:13 Urine WBC (Auto) 25.0 /HPF (0.0-6.0) H 09/09/16 14:13 Urine RBC (Auto) > 182.0 /HPF (0.0-6.0) 09/09/16 14:13 Urine Bacteria (Auto) 1+ /HPF (Negative) 09/09/16 14:13 Urine WBC Clumps 2+ /HPF 09/07/16 02:47 Hyaline Casts 4 /LPF 09/07/16 02:47 Urine Mucus Few /HPF 09/09/16 14:13 Urine Eosinophils None seen (None Seen) 09/07/16 16:00 Urine Creatinine 66.3 mg/dL (0.1-20.0) H 09/07/16 16:00 Urine Sodium 22 mEq/L 09/07/16 16:00 Random Vancomycin 2.3 ug/mL (0-40.0) 09/09/16 03:00 Urine Opiates Screen Presumptive negative 09/03/16 15:11 Urine Methadone Screen Presumptive positive 09/03/16 15:11 Ur Barbiturates Screen Presumptive positive 09/03/16 15:11 Ur Phencyclidine Scrn Presumptive negative 09/03/16 15:11 Ur Amphetamines Screen Presumptive negative 09/03/16 15:11 U Benzodiazepines Scrn Presumptive negative 09/03/16 15:11 Urine Cocaine Screen Presumptive negative 09/03/16 15:11 U Marijuana (THC) Screen Presumptive positive 09/03/16 15:11 Drugs of Abuse Note Disclamer 09/03/16 15:11 Rheumatoid Factor 24 IU/ml (0-13) H 09/08/16 11:48 SAHIL Screen Negative (Negative) 09/07/16 09:20 Proteinase 3 (PR3) Ab <1.0 AI (<1.0) 09/07/16 09:20 Myeloperoxidase Ab <1.0 AI (<1.0) 09/07/16 09:20 Sjogren's Antibody <1.0 AI (<1.0) 09/08/16 15:35 Scl-70 Scleroderma Ab <1.0 AI (<1.0) 09/08/16 15:35 Centromere B Antibody <1.0 AI (<1.0) 09/08/16 12:02 Cardiolipid IgG Ab <14 GPL (<=14) 09/12/16 09:59 Cardiolipid IgA Ab <11 APL (<=11) 09/12/16 09:59 Cardiolipid IgM Ab <12 MPL (<=12) 09/12/16 09:59 Complement C3 148 mg/dL (90-180) 09/07/16 09:20 Complement C4 58 mg/dL (16-47) H 09/07/16 09:20 RPR Nonreactive (Nonreactive) 09/08/16 11:48 Hep Bs Antigen Non-reactive (Negative) 09/07/16 09:20 Hepatitis C Antibody Non-reactive (NonReactive) 09/07/16 09:20 HIV 1&2 Antibody Rapid Non react (Non React) 09/08/16 11:48 HIV P24 Antigen Non react (Non React) 09/08/16 11:48 Blood Type A POSITIVE 09/10/16 13:17 Antibody Screen TNR 09/10/16 13:17 DELORIS Antibody Screen Negative 09/10/16 13:17 Crossmatch See Detail 09/10/16 13:17
[2016-09-16] MEDS: ASPIRIN PO SCH (10:00)
[2016-09-16] MEDS: LONITEN PO SCH (10:02)
[2016-09-16] MEDS: LEVEMIR (NF) SUB-Q SCH (10:02)
[2016-09-16] MEDS: PROTONIX IV SCH (10:02)
[2016-09-16] MEDS: DELTASONE PO SCH (10:02)
--- NOTE | 2016-09-16 10:29 | Progress Note ---
Subjective Principal diagnosis: Acute Respiratory Failure on MVS; Acute CVA; Acute Encephalopathy Interval history: Patient was seen today for follow-up of multiple renal related issues Events of 24 hours noted remains ventilator dependent, She does open her eyes today She is currently being followed by multiple disciplines Vitals labs intake output and medications were reviewed Social history: Reviewed Family history: Reviewed Allergy: Reviewed Physical examination Vitals: Reviewed HEENT: Oral mucosa moist Neck: Supple no JVD Chest: She does have bilateral basilar crackles mostly on the right than left Heart: Regular rate and rhythm S1 and S2 heard Abdomen: Soft nontender no voluntary guarding rigidity rebound Extremity: Minimal edema dry skin Dermatology; dry skin no edema Neurological; patient opens her eyes Assessment and plan; Assessment and plan Acute on chronic renal failure; no emergent indication for renal replacement therapy bilateral atrophic kidneys noted on ultrasound suggestive of chronic kidney disease, family has been made aware about the degree and severity of renal dysfunction(her son), also has been explained about poor in general prognosis, baseline creatinine is around 1.7, she has multiple risk factors for progression of renal failure over time Noted to have renal artery stenosis laura causing labile HTN Creatinine has worsened mild hyperkalemia; will need to discuss with patient's son about the goal of care Accelerated hypertension occasional lability but overall doing better parameters have been given for blood pressure control, also affected by education Worsening leukocytosis, and the patient is currently ventilator dependent being followed by infectious disease as well as pulmonary and critical care, patient has been diagnosed with aspiration pneumonia Acute large CVA status post TPA, remains unresponsive followed by neurology Severe protein calorie malnutrition due to acute illness with many other health condition Respiratory failure/exhibition of COPD currently on ventilatory support I believe patient's prognosis in general appears to be very poor due to multiorgan problem I have discussed this in particular with patient's son at length during this admission We'll continue to follow and make recommendation from renal standpoint Had a detailed discussion with patient's power of transactional attorney at length today, also discussed with her son Patient's overall renal prognosis was discussed at length She does have history of chronic kidney disease based on ultrasonogram finding as well as renovascular disease evident on her renovascular Doppler She is clearly not a candidate for denys arb or Aldactone therapy Her renal function continues to deteriorate she may require renal replacement therapy in the meantime we'll continue to monitor her labs he does have a much better understanding after our discussion about patient's overall health Neurologically she appears to be much more alert awake today but does not follow any purposeful commands Objective - Vital Signs Vital signs: Vital Signs - 12hr 09/15/16 09/15/16 09/15/16 22:30 23:00 23:05 Temperature Pulse Rate 109 H 112 H 85 Pulse Rate [ From Monitor] Respiratory 13 14 14 Rate Respiratory 14 Rate [ Generalized] Blood Pressure 114/58 101/50 O2 Sat by Pulse 99 96 100 Oximetry 09/15/16 09/15/16 09/16/16 23:30 23:55 00:00 Temperature 98.7 F Pulse Rate 129 H 102 H Pulse Rate [ From Monitor] Respiratory 14 14 Rate Respiratory Rate [ Generalized] Blood Pressure 97/44 116/57 O2 Sat by Pulse 96 99 Oximetry 09/16/16 09/16/16 09/16/16 00:23 00:30 01:00 Temperature Pulse Rate 111 H 100 H 96 H Pulse Rate [ From Monitor] Respiratory 17 14 Rate Respiratory Rate [ Generalized] Blood Pressure 128/71 94/52 102/50 O2 Sat by Pulse 98 98 Oximetry 09/16/16 09/16/16 09/16/16 01:10 01:30 02:00 Temperature Pulse Rate 86 84 85 Pulse Rate [ From Monitor] Respiratory 14 14 Rate Respiratory Rate [ Generalized] Blood Pressure 101/49 104/47 104/52 O2 Sat by Pulse 99 Oximetry 09/16/16 09/16/16 09/16/16 02:30 03:00 03:21 Temperature 98.8 F Pulse Rate 84 89 Pulse Rate [ From Monitor] Respiratory 14 14 Rate Respiratory Rate [ Generalized] Blood Pressure 106/49 112/56 O2 Sat by Pulse 100 Oximetry 09/16/16 09/16/16 09/16/16 03:30 04:00 04:04 Temperature Pulse Rate 92 H 93 H 92 H Pulse Rate [ From Monitor] Respiratory 14 14 Rate Respiratory Rate [ Generalized] Blood Pressure 125/66 132/63 O2 Sat by Pulse 100 100 Oximetry 09/16/16 09/16/16 09/16/16 04:30 05:00 05:30 Temperature Pulse Rate 98 H 97 H 98 H Pulse Rate [ From Monitor] Respiratory 14 14 14 Rate Respiratory Rate [ Generalized] Blood Pressure 131/63 126/65 143/69 O2 Sat by Pulse 99 98 98 Oximetry 09/16/16 09/16/16 09/16/16 06:00 06:30 07:00 Temperature Pulse Rate 97 H 97 H 96 H Pulse Rate [ From Monitor] Respiratory 14 14 14 Rate Respiratory Rate [ Generalized] Blood Pressure 133/65 121/64 138/76 O2 Sat by Pulse 100 100 Oximetry 09/16/16 09/16/16 09/16/16 07:30 08:00 08:30 Temperature 98.7 F Pulse Rate 87 90 92 H Pulse Rate [ 90 From Monitor] Respiratory 14 14 14 Rate Respiratory Rate [ Generalized] Blood Pressure 148/72 116/56 121/60 O2 Sat by Pulse 98 99 Oximetry 09/16/16 09/16/16 09:11 09:21 Temperature Pulse Rate 91 H 100 H Pulse Rate [ From Monitor] Respiratory 18 Rate Respiratory Rate [ Generalized] Blood Pressure 161/82 165/79 O2 Sat by Pulse 98 99 Oximetry - Lab 09/17/16 03:45 09/17/16 03:45 Most recent lab results Calcium 8.3 mg/dL (8.4-10.2) L 09/15/16 05:00 Phosphorus 4.30 mg/dL (2.5-4.5) D 09/08/16 06:18 Magnesium 2.40 mg/dL (1.7-2.3) H 09/07/16 11:43 Urine Creatinine 66.3 mg/dL (0.1-20.0) H 09/07/16 16:00 Urine Sodium 22 mEq/L 09/07/16 16:00
[2016-09-16 10:50] LABS: Basophils % (Auto) 0.1 % (0.0-1.8); Eosinophils # (Auto) 0.1 K/mm3 (0.0-0.4); Eosinophils % (Auto) 0.8 % (0.0-4.3); Hematocrit 20.9 % (30.3-42.9); Hemoglobin 6.5 gm/dl (10.1-14.3); Lymphocytes # (Auto) 2.1 K/mm3 (1.2-5.4); Mean Corpuscular HGB Conc 31 % (30-34); Mean Corpuscular Volume 76 fl (79-97); Monocytes # (Auto) 1.1 K/mm3 (0.0-0.8); Monocytes % (Auto) 5.6 % (0.0-7.3); Platelet Count 206 K/mm3 (140-440); Red Blood Count 2.77 M/mm3 (3.65-5.03); Red Cell Distribution Width 19.3 % (13.2-15.2)
[2016-09-16 10:52] LABS: Mean Corpuscular Hemoglobin 23 pg (28-32)
--- NOTE | 2016-09-16 10:55 | Progress Note ---
Assessment and Plan 46 YO F Hx Dm2/HTN/asthma/CKD/anxiety last well 09/02 @ 11:40 PM p/w eyes open, R facial droop and ? aphasia but then in CT pt laughing w/o facial droop. Tele neuro NIHSS 8. Her BP was 200s/100s and eventually family consented to tPA after initial declining but tpa infusion stopped after 5 mins d/t refractory HTN. Since then she has been in ICU intubated and agitated requiring sedation. On exam pt w/ depressed level of arousal, poor concentration, paucity of speech not following commands and withdraws from pain less briskly on R hemibody. CTH on admit chronic L thalamic ? lacune and L > R ? gliosis but poor image. f/u CTH 09/07 reveals large L MCA superior and inferior division infarct but no ICH or midline shift/compression of brain structures. UDS + Methadone/Barbs/THC. CDs neg. TTE neg.LDL 126. TSH/Nh4 neg. f/u CTH 09/08 continued evolution but no midline shift or ICH. MRI Brain 09/08 reveals multifocal stroke L MCA & L MCA/ [employer] watershed and also R > L cerebellum w/ 2 mm midline shift. MRA Head confirms L M2/M3 occlusion. PRINCE neg. f/u CTH 09/11 stable. On 09/16 pt improving clinically more alert. POSITIVE SEROLOGIES: RF, Fibrinogen, ESR, Lipoprotein A, dRVVT; NEG serologies: CATHIE, SAHIL, RPR, Lupus AC, Coags, Protein C/S Profile, AT3 , HIV, Complement, Scl-70, anti-centromere Ab, Anti-Ro (SSA)/Anti-La (SSB), Antiproteinase 3, CRP unimpressive. I am suspicious for hypercoagulable state as etiology of her stroke. Plan and Recommendation: 1. Telemetry bed w/ Q4 hour neuro checks 2. 30 day ambulatory Tele monitor ? pAFib 3. Stroke in [place] Eval: Factor V Leiden, APLAbs, Beta-2 GP Ab, Prothrombin gene [id number] mutation, MTHFR C677T, TYSON-1, Lactic Acid, Homocysteine, Cryoglobulin, ANCA 4. Heme eval for Hypercoag state @ least as outpt as would not recommend therapeutic AC for at least 2-3 weeks to minimize risk of ICH 5. Can lower MAPs by 10-15% daily to reach goal SBP 120-160 as permissive HTN period complete 6. Secondary stroke prevention: ASA 325mg Daily & upgrade to full dose statin therapy (Crestor 20mg or 40mg OR Lipitor 40mg or 80mg Daily OR Zocor 40mg QDay) for goal LDL < 70. No firm indication at this point for therapeutic anticoagulation as pt has not had AFib captured on telemetry monitoring. 7. F/E/N: isotonic IVF prn, prn replete, bedside speech/swallow eval prior to PO intake. Pt will likely need PEG/Trach/LTAC 8. DVT Prophylaxis 9. Stroke education, PT/OT/Speech Therapy consults, CM evaluation 10. For any changes in neurologic status, pls obtain STAT CTH w/o contrast and call neurology electronic communications technician Subjective Date of service: 09/16/16 Principal diagnosis: Acute Respiratory Failure on MVS; Acute CVA; Acute Encephalopathy Interval history: multiple labs continue to result. no clinical change. Objective - Vital Sign Vital Signs - 12hr 09/15/16 09/15/16 09/15/16 23:00 23:05 23:30 Temperature Pulse Rate 112 H 85 129 H Pulse Rate [ From Monitor] Respiratory 14 14 14 Rate Respiratory 14 Rate [ Generalized] Blood Pressure 101/50 97/44 O2 Sat by Pulse 96 100 96 Oximetry 09/15/16 09/16/16 09/16/16 23:55 00:00 00:23 Temperature 98.7 F Pulse Rate 102 H 111 H Pulse Rate [ From Monitor] Respiratory 14 Rate Respiratory Rate [ Generalized] Blood Pressure 116/57 128/71 O2 Sat by Pulse 99 Oximetry 09/16/16 09/16/16 09/16/16 00:30 01:00 01:10 Temperature Pulse Rate 100 H 96 H 86 Pulse Rate [ From Monitor] Respiratory 17 14 Rate Respiratory Rate [ Generalized] Blood Pressure 94/52 102/50 101/49 O2 Sat by Pulse 98 98 99 Oximetry 09/16/16 09/16/16 09/16/16 01:30 02:00 02:30 Temperature Pulse Rate 84 85 84 Pulse Rate [ From Monitor] Respiratory 14 14 14 Rate Respiratory Rate [ Generalized] Blood Pressure 104/47 104/52 106/49 O2 Sat by Pulse Oximetry 09/16/16 09/16/16 09/16/16 03:00 03:21 03:30 Temperature 98.8 F Pulse Rate 89 92 H Pulse Rate [ From Monitor] Respiratory 14 14 Rate Respiratory Rate [ Generalized] Blood Pressure 112/56 125/66 O2 Sat by Pulse 100 100 Oximetry 09/16/16 09/16/16 09/16/16 04:00 04:04 04:30 Temperature Pulse Rate 93 H 92 H 98 H Pulse Rate [ From Monitor] Respiratory 14 14 Rate Respiratory Rate [ Generalized] Blood Pressure 132/63 131/63 O2 Sat by Pulse 100 99 Oximetry 09/16/16 09/16/16 09/16/16 05:00 05:30 06:00 Temperature Pulse Rate 97 H 98 H 97 H Pulse Rate [ From Monitor] Respiratory 14 14 14 Rate Respiratory Rate [ Generalized] Blood Pressure 126/65 143/69 133/65 O2 Sat by Pulse 98 98 100 Oximetry 09/16/16 09/16/16 09/16/16 06:30 07:00 07:30 Temperature Pulse Rate 97 H 96 H 87 Pulse Rate [ From Monitor] Respiratory 14 14 14 Rate Respiratory Rate [ Generalized] Blood Pressure 121/64 138/76 148/72 O2 Sat by Pulse 100 98 Oximetry 09/16/16 09/16/16 09/16/16 08:00 08:30 09:11 Temperature 98.7 F Pulse Rate 90 92 H 91 H Pulse Rate [ 90 From Monitor] Respiratory 14 14 Rate Respiratory Rate [ Generalized] Blood Pressure 116/56 121/60 161/82 O2 Sat by Pulse 99 98 Oximetry 09/16/16 09:21 Temperature Pulse Rate 100 H Pulse Rate [ From Monitor] Respiratory 18 Rate Respiratory Rate [ Generalized] Blood Pressure 165/79 O2 Sat by Pulse 99 Oximetry - General Apperance Constitutional: acutely ill - EENT EENT: ATNC, PERRL, mucous membranes dry, hearing intact, vision intact - Respiratory Respiratory: chest non-tender, no respiratory distress, decreased breath sounds - Cardiovascular Cardiovascular: regular rate Extremities: no peripheral edema bilat, no clubbing, cyanosis, no inflammation, no ischemia or petechiae - Gastrointestinal Gastrointestinal: normoactive bowel sounds, soft, non-distended - Integumentary Integumentary: normal - Neurologic Cranial nerve examination: PERRL, EOMI, VFF, V1/V2/V3 grossly intact, Intact Vestibulo-ocular r, intact corneal reflex Speech examination: other (no speech, not followign commands) Motor examination - right side: 04/24: biceps, triceps, wrist flexion, wrist extension, water analyst, hip flexors, knee extensors, dorsiflexion, toe extension (EHL) , plantarflexion Motor examination - left side: 06/24: biceps, triceps, wrist flexion, wrist extension, water analyst, hip flexors, knee extensors, dorsiflexion, toe extension (EHL) , plantarflexion Detailed sensory examination: intact, pain - Laboratory Findings CBC and BMP: 09/16/16 10:27 09/15/16 05:00 Abnormal Lab Findings: Abnormal Labs 09/03/16 09/03/16 09/03/16 12:12 15:07 16:20 WBC RBC Hgb Hct MCV MCH RDW Plt Count Lymph % (Auto) [place] # Seg Neutrophils % Seg Neuts % (Manual) Lymphocytes % (Manual) Monocytes % (Manual) Seg Neutrophils # Seg Neutrophils # Man Lymphocytes # (Manual) Monocytes # (Manual) Fibrinogen dRVVT Confirm Interp Factor V Activity POC ABG pH 7.452 H POC ABG pCO2 POC ABG pO2 Sodium Potassium Chloride Carbon Dioxide BUN Creatinine Glucose POC Glucose 178 H Calcium Phosphorus 2.20 L Magnesium 1.60 L C-Reactive Protein Total Protein Albumin Triglycerides HDL Cholesterol Urine WBC (Auto) Urine Creatinine Rheumatoid Factor Complement C4 Crossmatch 09/03/16 09/03/16 09/03/16 17:57 17:58 23:50 WBC RBC Hgb Hct MCV MCH RDW Plt Count Lymph % (Auto) [place] # Seg Neutrophils % Seg Neuts % (Manual) Lymphocytes % (Manual) Monocytes % (Manual) Seg Neutrophils # Seg Neutrophils # Man Lymphocytes # (Manual) Monocytes # (Manual) Fibrinogen dRVVT Confirm Interp Factor V Activity POC ABG pH POC ABG pCO2 POC ABG pO2 Sodium Potassium Chloride Carbon Dioxide BUN Creatinine Glucose POC Glucose 162 H 145 H Calcium Phosphorus 2.30 L Magnesium C-Reactive Protein Total Protein Albumin Triglycerides HDL Cholesterol Urine WBC (Auto) Urine Creatinine Rheumatoid Factor Complement C4 Crossmatch 09/04/16 09/04/16 09/04/16 03:31 03:31 05:42 WBC RBC Hgb 9.7 L D Hct MCV 72 L MCH 23 L RDW 17.5 H Plt Count Lymph % (Auto) 11.1 L [place] # Seg Neutrophils % 84.3 H Seg Neuts % (Manual) Lymphocytes % (Manual) Monocytes % (Manual) Seg Neutrophils # 8.9 H Seg Neutrophils # Man Lymphocytes # (Manual) Monocytes # (Manual) Fibrinogen dRVVT Confirm Interp Factor V Activity POC ABG pH POC ABG pCO2 POC ABG pO2 Sodium 135 L Potassium 2.9 L* Chloride 97.2 L Carbon Dioxide 19 L BUN Creatinine 1.7 H Glucose 170 H POC Glucose 152 H Calcium Phosphorus Magnesium C-Reactive Protein Total Protein Albumin Triglycerides 160 H HDL Cholesterol 31 L Urine WBC (Auto) Urine Creatinine Rheumatoid Factor Complement C4 Crossmatch 09/04/16 09/04/16 09/04/16 11:34 17:46 23:29 WBC RBC Hgb Hct MCV MCH RDW Plt Count Lymph % (Auto) [place] # Seg Neutrophils % Seg Neuts % (Manual) Lymphocytes % (Manual) Monocytes % (Manual) Seg Neutrophils # Seg Neutrophils # Man Lymphocytes # (Manual) Monocytes # (Manual) Fibrinogen dRVVT Confirm Interp Factor V Activity POC ABG pH POC ABG pCO2 POC ABG pO2 Sodium Potassium Chloride Carbon Dioxide BUN Creatinine Glucose POC Glucose 165 H 210 H 139 H Calcium Phosphorus Magnesium C-Reactive Protein Total Protein Albumin Triglycerides HDL Cholesterol Urine WBC (Auto) Urine Creatinine Rheumatoid Factor Complement C4 Crossmatch 09/05/16 09/05/16 09/05/16 04:05 04:05 05:38 WBC RBC Hgb Hct MCV 76 L D MCH 23 L RDW 17.8 H Plt Count Lymph % (Auto) [place] # Seg Neutrophils % Seg Neuts % (Manual) Lymphocytes % (Manual) Monocytes % (Manual) Seg Neutrophils # Seg Neutrophils # Man Lymphocytes # (Manual) Monocytes # (Manual) Fibrinogen dRVVT Confirm Interp Factor V Activity POC ABG pH POC ABG pCO2 POC ABG pO2 Sodium 134 L Potassium Chloride Carbon Dioxide 18 L BUN Creatinine 1.8 H Glucose 192 H POC Glucose 175 H Calcium Phosphorus Magnesium C-Reactive Protein Total Protein Albumin Triglycerides HDL Cholesterol Urine WBC (Auto) Urine Creatinine Rheumatoid Factor Complement C4 Crossmatch 09/05/16 09/05/16 09/05/16 11:38 17:48 23:22 WBC RBC Hgb Hct MCV MCH RDW Plt Count Lymph % (Auto) [place] # Seg Neutrophils % Seg Neuts % (Manual) Lymphocytes % (Manual) Monocytes % (Manual) Seg Neutrophils # Seg Neutrophils # Man Lymphocytes # (Manual) Monocytes # (Manual) Fibrinogen dRVVT Confirm Interp Factor V Activity POC ABG pH POC ABG pCO2 POC ABG pO2 Sodium Potassium Chloride Carbon Dioxide BUN Creatinine Glucose POC Glucose 164 H 186 H 195 H Calcium Phosphorus Magnesium C-Reactive Protein Total Protein Albumin Triglycerides HDL Cholesterol Urine WBC (Auto) Urine Creatinine Rheumatoid Factor Complement C4 Crossmatch 09/06/16 09/06/16 09/06/16 04:12 05:59 07:32 WBC RBC Hgb Hct MCV MCH RDW Plt Count Lymph % (Auto) [place] # Seg Neutrophils % Seg Neuts % (Manual) Lymphocytes % (Manual) Monocytes % (Manual) Seg Neutrophils # Seg Neutrophils # Man Lymphocytes # (Manual) Monocytes # (Manual) Fibrinogen dRVVT Confirm Interp Factor V Activity POC ABG pH 7.514 H POC ABG pCO2 29.1 L POC ABG pO2 72 L Sodium 133 L Potassium 3.4 L Chloride 94.9 L Carbon Dioxide 19 L BUN 30 H Creatinine 2.1 H Glucose 139 H POC Glucose 146 H Calcium Phosphorus Magnesium C-Reactive Protein Total Protein Albumin Triglycerides HDL Cholesterol Urine WBC (Auto) Urine Creatinine Rheumatoid Factor Complement C4 Crossmatch 09/06/16 09/06/16 09/06/16 11:57 17:58 19:02 WBC RBC Hgb Hct MCV MCH RDW Plt Count Lymph % (Auto) [place] # Seg Neutrophils % Seg Neuts % (Manual) Lymphocytes % (Manual) Monocytes % (Manual) Seg Neutrophils # Seg Neutrophils # Man Lymphocytes # (Manual) Monocytes # (Manual) Fibrinogen dRVVT Confirm Interp Factor V Activity POC ABG pH 7.465 H POC ABG pCO2 32.0 L POC ABG pO2 Sodium Potassium Chloride Carbon Dioxide BUN Creatinine Glucose POC Glucose 165 H 160 H Calcium Phosphorus Magnesium C-Reactive Protein Total Protein Albumin Triglycerides HDL Cholesterol Urine WBC (Auto) Urine Creatinine Rheumatoid Factor Complement C4 Crossmatch 09/06/16 09/07/16 09/07/16 23:45 02:47 02:47 WBC RBC Hgb Hct MCV MCH RDW Plt Count Lymph % (Auto) [place] # Seg Neutrophils % Seg Neuts % (Manual) Lymphocytes % (Manual) Monocytes % (Manual) Seg Neutrophils # Seg Neutrophils # Man Lymphocytes # (Manual) Monocytes # (Manual) Fibrinogen dRVVT Confirm Interp Factor V Activity POC ABG pH POC ABG pCO2 POC ABG pO2 Sodium Potassium Chloride Carbon Dioxide BUN Creatinine Glucose POC Glucose 204 H Calcium Phosphorus Magnesium C-Reactive Protein Total Protein Albumin Triglycerides HDL Cholesterol Urine WBC (Auto) 68.0 H Urine Creatinine 106.1 H Rheumatoid Factor Complement C4 Crossmatch 09/07/16 09/07/16 09/07/16 04:50 06:19 06:39 WBC RBC Hgb Hct MCV MCH RDW Plt Count Lymph % (Auto) [place] # Seg Neutrophils % Seg Neuts % (Manual) Lymphocytes % (Manual) Monocytes % (Manual) Seg Neutrophils # Seg Neutrophils # Man Lymphocytes # (Manual) Monocytes # (Manual) Fibrinogen dRVVT Confirm Interp Factor V Activity POC ABG pH 7.457 H POC ABG pCO2 32.1 L POC ABG pO2 76 L Sodium 132 L Potassium Chloride 94.7 L Carbon Dioxide BUN 53 H Creatinine 2.9 H Glucose 151 H POC Glucose 149 H Calcium Phosphorus Magnesium C-Reactive Protein Total Protein Albumin Triglycerides HDL Cholesterol Urine WBC (Auto) Urine Creatinine Rheumatoid Factor Complement C4 Crossmatch 09/07/16 09/07/16 09/07/16 09:20 11:43 11:43 WBC 19.4 H RBC Hgb 8.3 L Hct 26.4 L D MCV 72 L D MCH 22 L RDW 17.9 H Plt Count Lymph % (Auto) 8.5 L [place] # 1.0 H Seg Neutrophils % 85.8 H Seg Neuts % (Manual) Lymphocytes % (Manual) Monocytes % (Manual) Seg Neutrophils # 16.6 H Seg Neutrophils # Man Lymphocytes # (Manual) Monocytes # (Manual) Fibrinogen dRVVT Confirm Interp Factor V Activity POC ABG pH POC ABG pCO2 POC ABG pO2 Sodium 134 L Potassium Chloride 97.2 L Carbon Dioxide 20 L BUN 58 H Creatinine 2.9 H Glucose 147 H POC Glucose Calcium Phosphorus 2.40 L Magnesium 2.40 H C-Reactive Protein Total Protein 5.8 L Albumin 2.2 L Triglycerides HDL Cholesterol Urine WBC (Auto) Urine Creatinine Rheumatoid Factor Complement C4 58 H Crossmatch 09/07/16 09/07/16 09/07/16 11:50 16:00 17:31 WBC RBC Hgb Hct MCV MCH RDW Plt Count Lymph % (Auto) [place] # Seg Neutrophils % Seg Neuts % (Manual) Lymphocytes % (Manual) Monocytes % (Manual) Seg Neutrophils # Seg Neutrophils # Man Lymphocytes # (Manual) Monocytes # (Manual) Fibrinogen dRVVT Confirm Interp Factor V Activity POC ABG pH POC ABG pCO2 POC ABG pO2 158 H Sodium Potassium Chloride Carbon Dioxide BUN Creatinine Glucose POC Glucose 175 H Calcium Phosphorus Magnesium C-Reactive Protein Total Protein Albumin Triglycerides HDL Cholesterol Urine WBC (Auto) Urine Creatinine 66.3 H Rheumatoid Factor Complement C4 Crossmatch 09/07/16 09/08/16 09/08/16 23:50 05:46 06:18 WBC 17.8 H RBC 3.58 L Hgb 8.1 L Hct 25.5 L MCV 71 L MCH 23 L RDW 18.4 H Plt Count Lymph % (Auto) [place] # Seg Neutrophils % Seg Neuts % (Manual) 92.0 H Lymphocytes % (Manual) 6.0 L Monocytes % (Manual) Seg Neutrophils # Seg Neutrophils # Man 16.4 H Lymphocytes # (Manual) 1.1 L Monocytes # (Manual) Fibrinogen dRVVT Confirm Interp Factor V Activity POC ABG pH POC ABG pCO2 34.3 L POC ABG pO2 71 L Sodium Potassium Chloride Carbon Dioxide BUN Creatinine Glucose POC Glucose 216 H Calcium Phosphorus Magnesium C-Reactive Protein Total Protein Albumin Triglycerides HDL Cholesterol Urine WBC (Auto) Urine Creatinine Rheumatoid Factor Complement C4 Crossmatch 09/08/16 09/08/16 09/08/16 06:18 06:51 10:55 WBC RBC Hgb Hct MCV MCH RDW Plt Count Lymph % (Auto) [place] # Seg Neutrophils % Seg Neuts % (Manual) Lymphocytes % (Manual) Monocytes % (Manual) Seg Neutrophils # Seg Neutrophils # Man Lymphocytes # (Manual) Monocytes # (Manual) Fibrinogen dRVVT Confirm Interp Factor V Activity POC ABG pH POC ABG pCO2 POC ABG pO2 Sodium 133 L Potassium Chloride 96.9 L Carbon Dioxide 20 L BUN 63 H Creatinine 2.7 H Glucose 195 H POC Glucose 204 H 169 H Calcium Phosphorus Magnesium C-Reactive Protein Total Protein Albumin Triglycerides HDL Cholesterol Urine WBC (Auto) Urine Creatinine Rheumatoid Factor Complement C4 Crossmatch 09/08/16 09/08/16 09/08/16 11:48 11:48 11:48 WBC RBC Hgb Hct MCV MCH RDW Plt Count Lymph % (Auto) [place] # Seg Neutrophils % Seg Neuts % (Manual) Lymphocytes % (Manual) Monocytes % (Manual) Seg Neutrophils # Seg Neutrophils # Man Lymphocytes # (Manual) Monocytes # (Manual) Fibrinogen 750 H dRVVT Confirm Interp Factor V Activity POC ABG pH POC ABG pCO2 POC ABG pO2 Sodium Potassium Chloride Carbon Dioxide BUN Creatinine Glucose POC Glucose Calcium Phosphorus Magnesium C-Reactive Protein 15.70 H Total Protein Albumin Triglycerides HDL Cholesterol Urine WBC (Auto) Urine Creatinine Rheumatoid Factor 24 H Complement C4 Crossmatch 09/08/16 09/08/16 09/09/16 15:35 18:25 00:24 WBC RBC Hgb Hct MCV MCH RDW Plt Count Lymph % (Auto) [place] # Seg Neutrophils % Seg Neuts % (Manual) Lymphocytes % (Manual) Monocytes % (Manual) Seg Neutrophils # Seg Neutrophils # Man Lymphocytes # (Manual) Monocytes # (Manual) Fibrinogen dRVVT Confirm Interp Factor V Activity 182 H POC ABG pH POC ABG pCO2 POC ABG pO2 Sodium Potassium Chloride Carbon Dioxide BUN Creatinine Glucose POC Glucose 184 H 216 H Calcium Phosphorus Magnesium C-Reactive Protein Total Protein Albumin Triglycerides HDL Cholesterol Urine WBC (Auto) Urine Creatinine Rheumatoid Factor Complement C4 Crossmatch 09/09/16 09/09/16 09/09/16 03:00 03:00 04:04 WBC 27.9 H RBC Hgb 8.7 L Hct 28.1 L MCV 72 L MCH 22 L RDW 18.4 H Plt Count 485 H Lymph % (Auto) [place] # Seg Neutrophils % Seg Neuts % (Manual) 77.0 H Lymphocytes % (Manual) 9.0 L Monocytes % (Manual) Seg Neutrophils # Seg Neutrophils # Man 21.5 H Lymphocytes # (Manual) Monocytes # (Manual) 2.0 H Fibrinogen dRVVT Confirm Interp Factor V Activity POC ABG pH POC ABG pCO2 POC ABG pO2 121 H Sodium 135 L Potassium Chloride 96.3 L Carbon Dioxide 21 L BUN 83 H Creatinine 3.0 H Glucose 135 H POC Glucose Calcium Phosphorus Magnesium C-Reactive Protein Total Protein Albumin Triglycerides HDL Cholesterol Urine WBC (Auto) Urine Creatinine Rheumatoid Factor Complement C4 Crossmatch 09/09/16 09/09/16 09/09/16 05:41 11:55 14:13 WBC RBC Hgb Hct MCV MCH RDW Plt Count Lymph % (Auto) [place] # Seg Neutrophils % Seg Neuts % (Manual) Lymphocytes % (Manual) Monocytes % (Manual) Seg Neutrophils # Seg Neutrophils # Man Lymphocytes # (Manual) Monocytes # (Manual) Fibrinogen dRVVT Confirm Interp Factor V Activity POC ABG pH POC ABG pCO2 POC ABG pO2 Sodium Potassium Chloride Carbon Dioxide BUN Creatinine Glucose POC Glucose 155 H 186 H Calcium Phosphorus Magnesium C-Reactive Protein Total Protein Albumin Triglycerides HDL Cholesterol Urine WBC (Auto) 25.0 H Urine Creatinine Rheumatoid Factor Complement C4 Crossmatch 09/09/16 09/09/16 09/10/16 17:33 23:13 05:09 WBC RBC Hgb Hct MCV MCH RDW Plt Count Lymph % (Auto) [place] # Seg Neutrophils % Seg Neuts % (Manual) Lymphocytes % (Manual) Monocytes % (Manual) Seg Neutrophils # Seg Neutrophils # Man Lymphocytes # (Manual) Monocytes # (Manual) Fibrinogen dRVVT Confirm Interp Factor V Activity POC ABG pH POC ABG pCO2 POC ABG pO2 74 L Sodium Potassium Chloride Carbon Dioxide BUN Creatinine Glucose POC Glucose 211 H 215 H Calcium Phosphorus Magnesium C-Reactive Protein Total Protein Albumin Triglycerides HDL Cholesterol Urine WBC (Auto) Urine Creatinine Rheumatoid Factor Complement C4 Crossmatch 09/10/16 09/10/16 09/10/16 05:17 05:17 11:31 WBC 15.8 H RBC 3.25 L Hgb 7.3 L Hct 22.9 L MCV 71 L MCH 23 L RDW 18.4 H Plt Count Lymph % (Auto) [place] # Seg Neutrophils % Seg Neuts % (Manual) 91.0 H Lymphocytes % (Manual) 4.0 L Monocytes % (Manual) Seg Neutrophils # Seg Neutrophils # Man 14.4 H Lymphocytes # (Manual) 0.6 L Monocytes # (Manual) Fibrinogen dRVVT Confirm Interp Factor V Activity POC ABG pH POC ABG pCO2 POC ABG pO2 Sodium Potassium Chloride Carbon Dioxide 21 L BUN 93 H Creatinine 2.9 H Glucose 146 H POC Glucose 188 H Calcium 8.1 L Phosphorus Magnesium C-Reactive Protein Total Protein Albumin Triglycerides HDL Cholesterol Urine WBC (Auto) Urine Creatinine Rheumatoid Factor Complement C4 Crossmatch 09/10/16 09/10/16 09/10/16 13:17 17:20 23:32 WBC RBC Hgb Hct MCV MCH RDW Plt Count Lymph % (Auto) [place] # Seg Neutrophils % Seg Neuts % (Manual) Lymphocytes % (Manual) Monocytes % (Manual) Seg Neutrophils # Seg Neutrophils # Man Lymphocytes # (Manual) Monocytes # (Manual) Fibrinogen dRVVT Confirm Interp Factor V Activity POC ABG pH POC ABG pCO2 POC ABG pO2 Sodium Potassium Chloride Carbon Dioxide BUN Creatinine Glucose POC Glucose 199 H 186 H Calcium Phosphorus Magnesium C-Reactive Protein Total Protein Albumin Triglycerides HDL Cholesterol Urine WBC (Auto) Urine Creatinine Rheumatoid Factor Complement C4 Crossmatch See Detail 09/11/16 09/11/16 09/11/16 05:10 05:10 05:17 WBC 28.4 H RBC Hgb 9.2 L Hct 29.3 L D MCV 73 L MCH 23 L RDW 18.9 H Plt Count 452 H Lymph % (Auto) [place] # Seg Neutrophils % Seg Neuts % (Manual) 89.5 H Lymphocytes % (Manual) 2.0 L Monocytes % (Manual) Seg Neutrophils # Seg Neutrophils # Man 25.4 H Lymphocytes # (Manual) 0.6 L Monocytes # (Manual) 1.3 H Fibrinogen dRVVT Confirm Interp Factor V Activity POC ABG pH POC ABG pCO2 POC ABG pO2 Sodium 136 L Potassium Chloride Carbon Dioxide 18 L BUN 107 H Creatinine 2.6 H Glucose 187 H POC Glucose 230 H Calcium 8.3 L Phosphorus Magnesium C-Reactive Protein Total Protein Albumin Triglycerides HDL Cholesterol Urine WBC (Auto) Urine Creatinine Rheumatoid Factor Complement C4 Crossmatch 09/11/16 09/11/16 09/11/16 05:55 12:02 17:32 WBC RBC Hgb Hct MCV MCH RDW Plt Count Lymph % (Auto) [place] # Seg Neutrophils % Seg Neuts % (Manual) Lymphocytes % (Manual) Monocytes % (Manual) Seg Neutrophils # Seg Neutrophils # Man Lymphocytes # (Manual) Monocytes # (Manual) Fibrinogen dRVVT Confirm Interp Factor V Activity POC ABG pH POC ABG pCO2 33.8 L POC ABG pO2 Sodium Potassium Chloride Carbon Dioxide BUN Creatinine Glucose POC Glucose 191 H 239 H Calcium Phosphorus Magnesium C-Reactive Protein Total Protein Albumin Triglycerides HDL Cholesterol Urine WBC (Auto) Urine Creatinine Rheumatoid Factor Complement C4 Crossmatch 09/11/16 09/12/16 09/12/16 23:52 05:09 05:32 WBC RBC Hgb Hct MCV MCH RDW Plt Count Lymph % (Auto) [place] # Seg Neutrophils % Seg Neuts % (Manual) Lymphocytes % (Manual) Monocytes % (Manual) Seg Neutrophils # Seg Neutrophils # Man Lymphocytes # (Manual) Monocytes # (Manual) Fibrinogen dRVVT Confirm Interp Factor V Activity POC ABG pH POC ABG pCO2 34.6 L POC ABG pO2 Sodium Potassium Chloride Carbon Dioxide BUN Creatinine Glucose POC Glucose 265 H 184 H Calcium Phosphorus Magnesium C-Reactive Protein Total Protein Albumin Triglycerides HDL Cholesterol Urine WBC (Auto) Urine Creatinine Rheumatoid Factor Complement C4 Crossmatch 09/12/16 09/12/16 09/12/16 06:45 06:45 07:22 WBC 31.7 H RBC 3.54 L Hgb 8.3 L Hct 25.9 L MCV 73 L MCH 23 L RDW 18.9 H Plt Count Lymph % (Auto) [place] # Seg Neutrophils % Seg Neuts % (Manual) 88.5 H Lymphocytes % (Manual) 4.5 L Monocytes % (Manual) Seg Neutrophils # Seg Neutrophils # Man 28.1 H Lymphocytes # (Manual) Monocytes # (Manual) 1.0 H Fibrinogen dRVVT Confirm Interp Factor V Activity POC ABG pH POC ABG pCO2 POC ABG pO2 Sodium Potassium Chloride Carbon Dioxide 20 L BUN 115 H Creatinine 2.7 H Glucose 165 H POC Glucose Calcium 8.0 L Phosphorus Magnesium C-Reactive Protein Total Protein Albumin Triglycerides 217 H HDL Cholesterol Urine WBC (Auto) Urine Creatinine Rheumatoid Factor Complement C4 Crossmatch 09/12/16 09/12/16 09/12/16 07:22 09:59 12:21 WBC RBC Hgb Hct MCV MCH RDW Plt Count Lymph % (Auto) [place] # Seg Neutrophils % Seg Neuts % (Manual) Lymphocytes % (Manual) Monocytes % (Manual) Seg Neutrophils # Seg Neutrophils # Man Lymphocytes # (Manual) Monocytes # (Manual) Fibrinogen dRVVT Confirm Interp Positive H Factor V Activity POC ABG pH POC ABG pCO2 POC ABG pO2 Sodium Potassium Chloride Carbon Dioxide BUN Creatinine Glucose POC Glucose 224 H Calcium Phosphorus Magnesium C-Reactive Protein 1.70 H Total Protein Albumin Triglycerides HDL Cholesterol Urine WBC (Auto) Urine Creatinine Rheumatoid Factor Complement C4 Crossmatch 09/12/16 09/12/16 09/13/16 16:51 23:28 04:00 WBC 45.0 H* RBC Hgb 9.4 L Hct MCV 75 L MCH 23 L RDW 19.0 H Plt Count 470 H Lymph % (Auto) [place] # Seg Neutrophils % Seg Neuts % (Manual) 89.0 H Lymphocytes % (Manual) 5.0 L Monocytes % (Manual) Seg Neutrophils # Seg Neutrophils # Man 40.1 H Lymphocytes # (Manual) Monocytes # (Manual) Fibrinogen dRVVT Confirm Interp Factor V Activity POC ABG pH POC ABG pCO2 POC ABG pO2 Sodium Potassium Chloride Carbon Dioxide BUN Creatinine Glucose POC Glucose 169 H 150 H Calcium Phosphorus Magnesium C-Reactive Protein Total Protein Albumin Triglycerides HDL Cholesterol Urine WBC (Auto) Urine Creatinine Rheumatoid Factor Complement C4 Crossmatch 09/13/16 09/13/16 09/13/16 04:00 11:26 17:31 WBC RBC Hgb Hct MCV MCH RDW Plt Count Lymph % (Auto) Tillman # Seg Neutrophils % Seg Neuts % (Manual) Lymphocytes % (Manual) Monocytes % (Manual) Seg Neutrophils # Seg Neutrophils # Man Lymphocytes # (Manual) Monocytes # (Manual) Fibrinogen dRVVT Confirm Interp Factor V Activity POC ABG pH POC ABG pCO2 POC ABG pO2 Sodium Potassium Chloride Carbon Dioxide 20 L BUN 116 H Creatinine 3.0 H Glucose 172 H POC Glucose 140 H 183 H Calcium Phosphorus Magnesium C-Reactive Protein Total Protein 6.2 L Albumin 2.9 L Triglycerides HDL Cholesterol Urine WBC (Auto) Urine Creatinine Rheumatoid Factor Complement C4 Crossmatch 09/13/16 09/14/16 09/14/16 23:23 04:06 04:07 WBC 29.4 H RBC Hgb 8.9 L Hct 27.3 L MCV 75 L MCH 24 L RDW 19.1 H Plt Count Lymph % (Auto) Tillman # Seg Neutrophils % Seg Neuts % (Manual) 84.0 H Lymphocytes % (Manual) 6.0 L Monocytes % (Manual) 9.0 H Seg Neutrophils # Seg Neutrophils # Man 24.7 H Lymphocytes # (Manual) Monocytes # (Manual) 2.6 H Fibrinogen dRVVT Confirm Interp Factor V Activity POC ABG pH 7.342 L POC ABG pCO2 POC ABG pO2 116 H Sodium Potassium Chloride Carbon Dioxide BUN Creatinine Glucose POC Glucose 154 H Calcium Phosphorus Magnesium C-Reactive Protein Total Protein Albumin Triglycerides HDL Cholesterol Urine WBC (Auto) Urine Creatinine Rheumatoid Factor Complement C4 Crossmatch 09/14/16 09/14/16 09/14/16 04:07 05:29 12:19 WBC RBC Hgb Hct MCV MCH RDW Plt Count Lymph % (Auto) Tillman # Seg Neutrophils % Seg Neuts % (Manual) Lymphocytes % (Manual) Monocytes % (Manual) Seg Neutrophils # Seg Neutrophils # Man Lymphocytes # (Manual) Monocytes # (Manual) Fibrinogen dRVVT Confirm Interp Factor V Activity POC ABG pH POC ABG pCO2 POC ABG pO2 Sodium 136 L Potassium Chloride Carbon Dioxide 18 L BUN 121 H Creatinine 2.8 H Glucose 214 H POC Glucose 239 H 181 H Calcium Phosphorus Magnesium C-Reactive Protein Total Protein Albumin Triglycerides HDL Cholesterol Urine WBC (Auto) Urine Creatinine Rheumatoid Factor Complement C4 Crossmatch 09/14/16 09/14/16 09/15/16 18:12 23:37 05:00 WBC 26.1 H RBC 3.05 L Hgb 7.2 L Hct 22.9 L MCV 75 L MCH 24 L RDW 19.0 H Plt Count Lymph % (Auto) Tillman # Seg Neutrophils % Seg Neuts % (Manual) Lymphocytes % (Manual) Monocytes % (Manual) Seg Neutrophils # Seg Neutrophils # Man Lymphocytes # (Manual) Monocytes # (Manual) Fibrinogen dRVVT Confirm Interp Factor V Activity POC ABG pH POC ABG pCO2 POC ABG pO2 Sodium Potassium Chloride Carbon Dioxide BUN Creatinine Glucose POC Glucose 266 H 154 H Calcium Phosphorus Magnesium C-Reactive Protein Total Protein Albumin Triglycerides HDL Cholesterol Urine WBC (Auto) Urine Creatinine Rheumatoid Factor Complement C4 Crossmatch 09/15/16 09/15/16 09/15/16 05:00 05:17 12:45 WBC RBC Hgb Hct MCV MCH RDW Plt Count Lymph % (Auto) [place] # Seg Neutrophils % Seg Neuts % (Manual) Lymphocytes % (Manual) Monocytes % (Manual) Seg Neutrophils # Seg Neutrophils # Man Lymphocytes # (Manual) Monocytes # (Manual) Fibrinogen dRVVT Confirm Interp Factor V Activity POC ABG pH POC ABG pCO2 POC ABG pO2 Sodium Potassium 5.2 H Chloride Carbon Dioxide 18 L BUN 139 H Creatinine 3.7 H Glucose 227 H POC Glucose 226 H 244 H Calcium 8.3 L Phosphorus Magnesium C-Reactive Protein Total Protein Albumin Triglycerides HDL Cholesterol Urine WBC (Auto) Urine Creatinine Rheumatoid Factor Complement C4 Crossmatch 09/15/16 09/15/16 09/15/16 14:32 17:33 23:35 WBC RBC Hgb Hct MCV MCH RDW Plt Count Lymph % (Auto) Tillman # Seg Neutrophils % Seg Neuts % (Manual) Lymphocytes % (Manual) Monocytes % (Manual) Seg Neutrophils # Seg Neutrophils # Man Lymphocytes # (Manual) Monocytes # (Manual) Fibrinogen dRVVT Confirm Interp Factor V Activity POC ABG pH POC ABG pCO2 27.7 L POC ABG pO2 120 H Sodium Potassium Chloride Carbon Dioxide BUN Creatinine Glucose POC Glucose 232 H 167 H Calcium Phosphorus Magnesium C-Reactive Protein Total Protein Albumin Triglycerides HDL Cholesterol Urine WBC (Auto) Urine Creatinine Rheumatoid Factor Complement C4 Crossmatch 09/16/16 09/16/16 03:58 10:27 WBC 19.0 H RBC 2.77 L Hgb 6.5 L Hct 20.9 L MCV 76 L MCH 23 L RDW 19.3 H Plt Count Lymph % (Auto) 11.0 L Tillman # 1.1 H Seg Neutrophils % 82.5 H Seg Neuts % (Manual) Lymphocytes % (Manual) Monocytes % (Manual) Seg Neutrophils # 15.7 H Seg Neutrophils # Man Lymphocytes # (Manual) Monocytes # (Manual) Fibrinogen dRVVT Confirm Interp Factor V Activity POC ABG pH POC ABG pCO2 POC ABG pO2 Sodium Potassium Chloride Carbon Dioxide BUN Creatinine Glucose POC Glucose 146 H Calcium Phosphorus Magnesium C-Reactive Protein Total Protein Albumin Triglycerides HDL Cholesterol Urine WBC (Auto) Urine Creatinine Rheumatoid Factor Complement C4 Crossmatch
[2016-09-16 11:10] LABS: Calcium 8.1 mg/dL (8.4-10.2)
[2016-09-16 11:21] LABS: BUN/Creatinine Ratio 33.9
[2016-09-16] MEDS ORDERED: NACL 0.9% 500 ML 500 ML IV NR (14:00)
--- NOTE | 2016-09-16 14:44 | Progress Note ---
Assessment and Plan - Patient Problems (1) Acute respiratory failure with hypoxia Current Visit: Yes Status: Acute Plan to address problem: Trach and PEG scheduled for 09/20/16 Subjective Date of service: 09/16/16 Patient Reports: Positive: other (no change) Objective Vital Signs - 12hr 09/16/16 09/16/16 09/16/16 03:00 03:21 03:30 Temperature 98.8 F Pulse Rate 89 92 H Pulse Rate [ From Monitor] Respiratory 14 14 Rate Blood Pressure 112/56 125/66 O2 Sat by Pulse 100 100 Oximetry 09/16/16 09/16/16 09/16/16 04:00 04:04 04:30 Temperature Pulse Rate 93 H 92 H 98 H Pulse Rate [ From Monitor] Respiratory 14 14 Rate Blood Pressure 132/63 131/63 O2 Sat by Pulse 100 99 Oximetry 09/16/16 09/16/16 09/16/16 05:00 05:30 06:00 Temperature Pulse Rate 97 H 98 H 97 H Pulse Rate [ From Monitor] Respiratory 14 14 14 Rate Blood Pressure 126/65 143/69 133/65 O2 Sat by Pulse 98 98 100 Oximetry 09/16/16 09/16/16 09/16/16 06:30 07:00 07:30 Temperature Pulse Rate 97 H 96 H 87 Pulse Rate [ From Monitor] Respiratory 14 14 14 Rate Blood Pressure 121/64 138/76 148/72 O2 Sat by Pulse 100 98 Oximetry 09/16/16 09/16/16 09/16/16 08:00 08:30 09:00 Temperature 98.7 F Pulse Rate 90 92 H 97 H Pulse Rate [ 90 From Monitor] Respiratory 14 14 14 Rate Blood Pressure 116/56 121/60 161/82 O2 Sat by Pulse 99 Oximetry 09/16/16 09/16/16 09/16/16 09:11 09:21 09:30 Temperature Pulse Rate 91 H 100 H 98 H Pulse Rate [ From Monitor] Respiratory 18 18 Rate Blood Pressure 161/82 165/79 142/66 O2 Sat by Pulse 98 99 97 Oximetry 09/16/16 09/16/16 09/16/16 10:00 10:30 11:00 Temperature Pulse Rate 97 H 99 H 105 H Pulse Rate [ From Monitor] Respiratory 19 29 H 21 Rate Blood Pressure 140/62 126/60 105/56 O2 Sat by Pulse 97 98 98 Oximetry 09/16/16 09/16/16 09/16/16 11:30 11:54 12:00 Temperature 98.8 F Pulse Rate 121 H 117 H 122 H Pulse Rate [ From Monitor] Respiratory 22 18 26 H Rate Blood Pressure 177/83 166/78 144/61 O2 Sat by Pulse 97 99 99 Oximetry 09/16/16 09/16/16 09/16/16 12:30 12:44 13:00 Temperature Pulse Rate 113 H 108 H 118 H Pulse Rate [ From Monitor] Respiratory 21 20 Rate Blood Pressure 133/51 133/51 151/69 O2 Sat by Pulse 100 100 Oximetry - Neck trachea midline - Abdomen soft - Labs 09/16/16 10:27 09/16/16 10:27 Diabetes panel 09/16/16 Range/Units 10:27 Sodium 145 (137-145) mmol/L Potassium 5.0 (3.6-5.0) mmol/L Chloride 109.3 H (98-107) mmol/L Carbon Dioxide 18 L (22-30) mmol/L BUN 139 H (7-17) mg/dL Creatinine 4.1 H (0.7-1.2) mg/dL Glucose 144 H (65-100) mg/dL Calcium 8.1 L (8.4-10.2) mg/dL Calcium panel 09/16/16 Range/Units 10:27 Calcium 8.1 L (8.4-10.2) mg/dL Pituitary panel 09/16/16 Range/Units 10:27 Sodium 145 (137-145) mmol/L Potassium 5.0 (3.6-5.0) mmol/L Chloride 109.3 H (98-107) mmol/L Carbon Dioxide 18 L (22-30) mmol/L BUN 139 H (7-17) mg/dL Creatinine 4.1 H (0.7-1.2) mg/dL Glucose 144 H (65-100) mg/dL Calcium 8.1 L (8.4-10.2) mg/dL Adrenal panel 09/16/16 Range/Units 10:27 Sodium 145 (137-145) mmol/L Potassium 5.0 (3.6-5.0) mmol/L Chloride 109.3 H (98-107) mmol/L Carbon Dioxide 18 L (22-30) mmol/L BUN 139 H (7-17) mg/dL Creatinine 4.1 H (0.7-1.2) mg/dL Glucose 144 H (65-100) mg/dL Calcium 8.1 L (8.4-10.2) mg/dL
[2016-09-16] MEDS: HALDOL IV PRN (16:42)
[2016-09-16] MEDS: NORMODYNE IV PRN (17:35)
--- NOTE | 2016-09-16 19:43 | Gastroenterology Consultation ---
History of Present Illness - Reason for Consult Consult date: 09/16/16 Anemia Requesting physician: MICHELLE CARDENAS - History of Present Illness The hx is from the chart and nursing; the patient is intubated and sedated, and has no family members present. She has old records in the chart that document HTN, asthma, and medical noncompliance. She was admitted with a massive CVA. She has been on the vent since then, and is scheduled to transfer to LTAC next week after a trach and PEG. She was on tube feeds, but this was stopped as the patient has emesis yesterday with some streaks of blood. However, her rectal tube and NG aspirate today show no bleeding. She has no apparent GI surgery. There is a CT scan from May (for "chronic N/V every few days") done in the ER that showed colitis v colon mass; the patient left AMA. She has a hx of heavy anemia in the past, felt to be due to menstrual cycles and poor diet, and she has had a cycle since being here on the ventilator. Past History Past Medical History: diabetes, hypertension, renal failure, other (Medical noncompliance) Past Surgical History: cholecystectomy (per chart review) Social history: other (per chart review, family denied any smoking or alcohol history on admission). denies: smoking, alcohol abuse, prescription drug abuse , IV drug use Family history: hypertension (per chart review) Medications and Allergies Allergies Allergy/AdvReac Type Severity Reaction Status Date / Time No Known Allergies Allergy Verified 04/14/15 06:02 Home Medications Medication Instructions Recorded Confirmed Last Taken Type Acetaminophen [Tylenol Arthritis] 650 mg PO QID PRN #30 tablet.er 02/15/1609/12 Unknown Rx Albuterol Sulfate [Proventil HFA] 6.7 gm INHALATION Q4-6H 02/15/16 09/12/16 History Insulin Glargine [Lantus VIAL] 30 units SQ QHS 02/15/16 09/12/16 02/15/16 History Clonidine HCl [Catapres] 0.3 mg PO TID #90 tablet 06/15/16 09/12/16 Unknown Rx Lisinopril [Zestril] 40 mg PO BID #60 tablet 06/15/16 09/12/16 Unknown Rx Polyethylene Glycol 3350 [Miralax 17 gm PO QDAY PRN #10 packet 06/15/16 Unknown Rx 3350] Albuterol 2 inhalation INHALATION Q4HR PRN 09/12/16 09/12/16 Unknown History AtorvaSTATin [Lipitor] 20 mg PO QHS 09/12/16 09/12/16 Unknown History Flovent 110 MCG/PUFF HFA 1 inhalation INHALATION QHS 09/12/16 09/12/16 Unknown History Furosemide [Lasix] 20 mg PO QDAY 09/12/16 09/12/16 Unknown History HumaLOG VIAL 45 units SUB-Q TID 09/12/16 09/12/16 Unknown History Insulin Aspart [NovoLOG Flexpen] 30 units SUB-Q TID MDD 30 Units 09/12/16 Unknown History Labetalol HCl 300 mg PO BID 09/12/16 09/12/16 Unknown History Spironolactone [Aldactone] 25 mg PO QDAY 09/12/16 09/12/16 Unknown History hydrALAZINE [Apresoline] 25 mg PO BID 09/12/16 09/12/16 Unknown History Active Meds: Active Medications Lipase/Protease/Amylase (Mary Reza 10,500 Unit) 1 each FEEDTUBE PRN PRN PRN Reason: For Clogged Feeding Tube Atorvastatin Calcium (Lipitor) 40 mg PO QHS [facility] Last Admin: 09/15/16 22:41 Dose: 40 mg Clonidine HCl (Catapres-Tts Patch) 0.3 mg TD [facility] Last Admin: 09/14/16 00:02 Dose: 0.3 mg Dextrose (D50w (25gm)) 50 gm IV PRN PRN PRN Reason: hypoglycemia Haloperidol Lactate (Haldol) 5 mg IV Q6H PRN PRN Reason: Unrespon. to mult. doses BZD's Last Admin: 09/16/16 16:42 Dose: 5 mg Heparin Sodium (Porcine) (Heparin) 5,000 unit SUB-Q Q8HR [facility] Last Admin: 09/16/16 13:32 Dose: Not Given Hydralazine HCl (Apresoline) 10 mg IV Q6H PRN PRN Reason: SBP > 160 Last Admin: 09/11/16 22:05 Dose: 10 mg Hydrophilic Ointment (Vaseline Lip Therapy) 1 applic TP Q2HR PRN PRN Reason: Dry Lips Fentanyl Citrate (Fentanyl Drip Premix) 2,000 mcg in 100 mls @ 3.775 mls/hr IV TITR AGUSTIN; 1 MCG/KG/HR PRN Reason: Protocol Last Titration: 09/16/16 10:25 Dose: 0 mcg/kg/hr, 0 mls/hr Propofol (Diprivan 10 Mg/Ml) 1,000 mg in 100 mls @ 2.265 mls/hr IV TITR AGUSTIN; 5 MCG/KG/MIN PRN Reason: Protocol Last Titration: 09/16/16 10:24 Dose: 0 mcg/kg/min, 0 mls/hr Nicardipine HCl 50 mg/ Sodium (Chloride) 250 mls @ 25 mls/hr IV TITR AGUSTIN; 5 MG/ HR PRN Reason: Protocol Last Titration: 09/12/16 08:34 Dose: 0 mg/hr, 0 mls/hr Metronidazole (Flagyl 500 Mg/100 Ml) 500 mg in 100 mls @ 100 mls/hr IV Q8HR [facility] Last Admin: 09/16/16 13:00 Dose: 100 mls/hr Insulin Detemir (Levemir) 8 units SUB-Q DAILY [facility] Last Admin: 09/16/16 10:02 Dose: 8 units Insulin Human Regular (Novolin R) 0 units SUB-Q Q6HR AGUSTIN PRN Reason: Protocol Last Admin: 09/16/16 18:04 Dose: 3 units Labetalol HCl (Normodyne) 20 mg IV Q4H PRN PRN Reason: For BP >160/100 Last Admin: 09/16/16 17:35 Dose: 20 mg Lorazepam (Ativan) 2 mg IV Q4H PRN PRN Reason: Agitation Metoprolol Tartrate (Lopressor) 25 mg PO Q6H [facility] Last Admin: 09/16/16 18:02 Dose: 25 mg Minoxidil (Loniten) 2.5 mg PO QDAY [facility] Last Admin: 09/16/16 10:02 Dose: 2.5 mg Multi-Ingred Cream/Lotion/Oil/Oint (Artificial Tears Ophth Oint) 1 applic OU Q4HR PRN PRN Reason: Dry Eye(s) Ondansetron HCl (Zofran) 4 mg IV Q8H PRN PRN Reason: N/V unrelieved by Shelly Last Admin: 09/15/16 15:48 Dose: 4 mg Prednisone (Deltasone) 40 mg PO QDAY [facility] Last Admin: 09/16/16 10:02 Dose: 40 mg Quetiapine Fumarate (Seroquel) 300 mg PO BID [facility] Last Admin: 09/16/16 10:02 Dose: 300 mg Simple Syrup (Simple Syrup) 30 ml FEEDTUBE PRN PRN PRN Reason: Hypoglycemia Simple Syrup (Simple Syrup) 15 ml FEEDTUBE PRN PRN PRN Reason: Hypoglycemia Sodium Bicarbonate (Sodium Bicarbonate) 325 mg FEEDTUBE PRN PRN PRN Reason: For Clogged Feeding Tube Sodium Chloride (Nacl 0.9% 500 Ml) 1 ml IV DIRECT [facility] Last Admin: 09/16/16 16:43 Dose: 1 ml Sodium Chloride (Sodium Chloride Flush Syringe 10 Ml) 10 ml IV PRN PRN PRN Reason: LINE FLUSH Vancomycin HCl (Vancomycin Po) 250 mg FEEDTUBE Q6HR [facility] Last Admin: 09/16/16 18:02 Dose: 250 mg Review of Systems - Review of Systems ROS unobtainable: due to endotracheal tube Exam - Constitutional Vital Signs: Temp Pulse Resp BP Pulse Ox 100.1 F H 116 H 26 H 189/93 99 09/16/16 19:25 09/16/16 19:23 09/16/16 19:23 09/16/16 19:23 09/16/16 19:23 General appearance: no acute distress - EENT Eyes: PERRL, EOM intact ENT: hearing intact, clear oral mucosa, no thrush, other (No blood in NG aspirate/brown liquid) - Neck Neck: supple, normal ROM - Respiratory Respiratory effort: normal Respiratory: bilateral: CTA (Intubated) - Cardiovascular Rhythm: regular Heart Sounds: Present: S1 & S2 Extremities: no ischemia, No edema - Gastrointestinal General gastrointestinal: Present: soft, non-tender, non-distended - Integumentary Integumentary: Present: clear, warm, dry - Neurologic Neurological: other (Intubated and sedated) - Labs CBC & Chem 7: 09/16/16 10:27 09/16/16 10:27 Lab Results: Laboratory Results - last 24 hr 09/15/16 09/15/16 09/15/16 12:45 17:33 23:35 WBC RBC Hgb Hct MCV MCH MCHC RDW Plt Count Lymph % (Auto) Stokes % (Auto) Eos % (Auto) Baso % (Auto) Lymph # Stokes # Eos # Baso # Seg Neutrophils % Seg Neutrophils # POC ABG pH POC ABG pCO2 POC ABG pO2 POC ABG HCO3 POC ABG Total CO2 POC ABG O2 Sat POC ABG Base Excess FiO2 Sodium Potassium Chloride Carbon Dioxide Anion Gap BUN Creatinine Estimated GFR BUN/Creatinine Ratio Glucose POC Glucose 244 H 232 H 167 H Osmolality Calcium Blood Type Antibody Screen DELORIS Antibody Screen Crossmatch 09/16/16 09/16/16 09/16/16 03:58 10:27 10:27 WBC 19.0 H RBC 2.77 L Hgb 6.5 L Hct 20.9 L MCV 76 L MCH 23 L MCHC 31 RDW 19.3 H Plt Count 206 Lymph % (Auto) 11.0 L Stokes % (Auto) 5.6 Eos % (Auto) 0.8 Baso % (Auto) 0.1 Lymph # 2.1 Stokes # 1.1 H Eos # 0.1 Baso # 0.0 Seg Neutrophils % 82.5 H Seg Neutrophils # 15.7 H POC ABG pH POC ABG pCO2 POC ABG pO2 POC ABG HCO3 POC ABG Total CO2 POC ABG O2 Sat POC ABG Base Excess FiO2 Sodium 145 Potassium 5.0 Chloride 109.3 H Carbon Dioxide 18 L Anion Gap 23 BUN 139 H Creatinine 4.1 H Estimated GFR 14 BUN/Creatinine Ratio 33.90 Glucose 144 H POC Glucose 146 H Osmolality Calcium 8.1 L Blood Type Antibody Screen DELORIS Antibody Screen Crossmatch 09/16/16 09/16/16 09/16/16 11:47 12:04 13:55 WBC RBC Hgb Hct MCV MCH MCHC RDW Plt Count Lymph % (Auto) Stokes % (Auto) Eos % (Auto) Baso % (Auto) Lymph # Stokes # Eos # Baso # Seg Neutrophils % Seg Neutrophils # POC ABG pH 7.350 POC ABG pCO2 32.9 L POC ABG pO2 90 POC ABG HCO3 18.2 POC ABG Total CO2 19 POC ABG O2 Sat 97 POC ABG Base Excess -7 FiO2 30 Sodium Potassium Chloride Carbon Dioxide Anion Gap BUN Creatinine Estimated GFR BUN/Creatinine Ratio Glucose POC Glucose Osmolality 351 Calcium Blood Type A POSITIVE Antibody Screen TNR DELORIS Antibody Screen Negative Crossmatch See Detail Assessment and Plan - Patient Problems (1) Acute blood loss anemia Current Visit: Yes Status: Acute Plan to address problem: - Unclear cause, and some chronic anemia as well, but with recurrent N/V, intolerance of feeds, and abnl CT from May, the patient will need an upper and lower endoscopy. - Will d/c ASA today, and attempt to contact family tomorrow for consent. - For now, since no emesis since yesterday, and tolerating pills, OK to restart trophic (10ml/hour) feeds. - Protonix for GI prophylaxis.
[2016-09-16 20:30] LABS: Creatinine,Urine 47.4 mg/dL (0.1-20.0)
[2016-09-16] MEDS: PROTONIX PO SCH (22:38)
[2016-09-17] MEDS: fentaNYL DRIP Premix 2,000 MCG/100 ML BAG IV SCH ×4 (01:04→20:28)
[2016-09-17 04:24] LABS: Basophils % (Auto) 0.1 % (0.0-1.8); Eosinophils # (Auto) 0.1 K/mm3 (0.0-0.4); Eosinophils % (Auto) 0.4 % (0.0-4.3); Hematocrit 26.7 % (30.3-42.9); Hemoglobin 8.5 gm/dl (10.1-14.3); Lymphocytes # (Auto) 1.8 K/mm3 (1.2-5.4); Lymphocytes % (Auto) 9.3 % (13.4-35.0); Mean Corpuscular HGB Conc 32 % (30-34); Mean Corpuscular Volume 78 fl (79-97); Monocytes # (Auto) 1.2 K/mm3 (0.0-0.8); Monocytes % (Auto) 6.3 % (0.0-7.3); Platelet Count 189 K/mm3 (140-440); Red Blood Count 3.41 M/mm3 (3.65-5.03); Red Cell Distribution Width 19.9 % (13.2-15.2)
[2016-09-17 04:34] LABS: Mean Corpuscular Hemoglobin 25 pg (28-32)
[2016-09-17] MEDS: HumuLIN R SUB-Q SCH ×4 (04:59→17:37)
[2016-09-17] MEDS: LOPRESSOR PO SCH ×4 (05:02→17:27)
[2016-09-17] MEDS: VANCOMYCIN PO FEEDTUBE SCH ×4 (05:05→17:27)
[2016-09-17] MEDS: FLAGYL 500 MG/100 ML 500 MG/100 ML BAG IV SCH ×3 (05:05→22:20)
[2016-09-17] MEDS: HEPARIN SUB-Q SCH ×3 (05:08→22:22)
[2016-09-17] MEDS: DIPRIVAN 10 MG/ML 1,000 MG/100 ML BOTTLE IV SCH ×2 (05:15→16:06)
[2016-09-17 05:17] LABS: Calcium 8.7 mg/dL (8.4-10.2)
[2016-09-17 05:37] LABS: BUN/Creatinine Ratio 36.5
--- NOTE | 2016-09-17 07:02 | Progress Note ---
Assessment and Plan - Patient Problems (1) Leukocytosis (leucocytosis) Current Visit: Yes Status: Acute Qualifiers: Leukocytosis type: leukemoid reaction Qualified Code(s): D72.823 - Leukemoid reaction Plan to address problem: 1. Improved to ~19K. 2. Continue enteral Vancomycin and IV Flagyl. Subjective Date of service: 09/17/16 Principal diagnosis: Acute Respiratory Failure on MVS; Acute CVA; Acute Encephalopathy Interval history: Remains intubated in ICU. Objective - Constitutional Vitals: Vital Signs Temp Pulse Resp BP Pulse Ox 99.4 F 94 H 14 171/78 100 09/17/16 03:54 09/17/16 06:00 09/17/16 06:00 09/17/16 06:00 09/17/16 05:30 Temperature -Last 24 Hours Temperature 99.4 F Temperature 99.2 F Temperature 98.9 F Temperature 98.9 F Temperature 98.9 F Temperature 98.9 F Temperature 98.9 F Temperature 98.9 F Temperature 98.9 F Temperature 99.0 F Temperature 99.0 F Temperature 98.8 F Temperature 100.1 F Temperature 100.7 F Temperature 98.8 F Temperature 98.8 F Temperature 98.9 F Temperature 98.7 F Temperature 98.7 F Temperature 98.9 F Temperature 98.8 F Temperature 98.8 F Temperature 98.7 F General appearance: Present: other (intubated, FiO2 30%) - EENT ENT: clear oral mucosa, other (ET and NG tubes in place) - Respiratory Respiratory: bilateral: CTA, negative: rhonchi - Cardiovascular Rhythm: regular Heart Sounds: Present: S1 & S2 Extremities: No edema - Gastrointestinal General gastrointestinal: Present: soft, non-distended, hypoactive bowel sounds Rectal Exam: other (rectal tube with watery, melenic stool collected) - Genitourinary Female genitourinary: other ([place] with normal-appearing urine) - Integumentary Integumentary: clear, no jaundice - Neurologic Neurologic: other (sedated on Diprivan) - Labs CBC & Chem 7: 09/17/16 03:45 09/17/16 03:45 Labs: Abnormal lab results 09/16/16 09/16/16 09/16/16 Range/Units 10:27 10:27 12:04 WBC 19.0 H (4.5-11.0) K/mm3 RBC 2.77 L (3.65-5.03) M/mm3 Hgb 6.5 L (10.1-14.3) gm/dl Hct 20.9 L (30.3-42.9) % MCV 76 L (79-97) fl MCH 23 L (28-32) pg RDW 19.3 H (13.2-15.2) % Lymph % (Auto) 11.0 L (13.4-35.0) % Jenkins # 1.1 H (0.0-0.8) K/mm3 Seg Neutrophils % 82.5 H (40.0-70.0) % Seg Neutrophils # 15.7 H (1.8-7.7) K/mm3 POC ABG pCO2 32.9 L (35-45) Sodium (137-145) mmol/L Potassium (3.6-5.0) mmol/L Chloride 109.3 H (98-107) mmol/L Carbon Dioxide 18 L (22-30) mmol/L BUN 139 H (7-17) mg/dL Creatinine 4.1 H (0.7-1.2) mg/dL Glucose 144 H (65-100) mg/dL POC Glucose (70-105) Calcium 8.1 L (8.4-10.2) mg/dL Magnesium (1.7-2.3) mg/dL Urine Creatinine (0.1-20.0) mg/dL Urine Total Protein (5-11.8) mg/dL Crossmatch 09/16/16 09/16/16 09/16/16 Range/Units 12:10 13:55 17:55 WBC (4.5-11.0) K/mm3 RBC (3.65-5.03) M/mm3 Hgb (10.1-14.3) gm/dl Hct (30.3-42.9) % MCV (79-97) fl MCH (28-32) pg RDW (13.2-15.2) % Lymph % (Auto) (13.4-35.0) % Jenkins # (0.0-0.8) K/mm3 Seg Neutrophils % (40.0-70.0) % Seg Neutrophils # (1.8-7.7) K/mm3 POC ABG pCO2 (35-45) Sodium (137-145) mmol/L Potassium (3.6-5.0) mmol/L Chloride (98-107) mmol/L Carbon Dioxide (22-30) mmol/L BUN (7-17) mg/dL Creatinine (0.7-1.2) mg/dL Glucose (65-100) mg/dL POC Glucose 185 H 222 H (70-105) Calcium (8.4-10.2) mg/dL Magnesium (1.7-2.3) mg/dL Urine Creatinine (0.1-20.0) mg/dL Urine Total Protein (5-11.8) mg/dL Crossmatch See Detail 09/16/16 09/16/16 09/17/16 Range/Units 19:19 23:48 03:45 WBC 19.6 H (4.5-11.0) K/mm3 RBC 3.41 L (3.65-5.03) M/mm3 Hgb 8.5 L (10.1-14.3) gm/dl Hct 26.7 L (30.3-42.9) % MCV 78 L (79-97) fl MCH 25 L (28-32) pg RDW 19.9 H (13.2-15.2) % Lymph % (Auto) 9.3 L (13.4-35.0) % Jenkins # 1.2 H (0.0-0.8) K/mm3 Seg Neutrophils % 83.9 H (40.0-70.0) % Seg Neutrophils # 16.4 H (1.8-7.7) K/mm3 POC ABG pCO2 (35-45) Sodium (137-145) mmol/L Potassium (3.6-5.0) mmol/L Chloride (98-107) mmol/L Carbon Dioxide (22-30) mmol/L BUN (7-17) mg/dL Creatinine (0.7-1.2) mg/dL Glucose (65-100) mg/dL POC Glucose 107 H (70-105) Calcium (8.4-10.2) mg/dL Magnesium (1.7-2.3) mg/dL Urine Creatinine 47.4 H (0.1-20.0) mg/dL Urine Total Protein 16 H (5-11.8) mg/dL Crossmatch 09/17/16 09/17/16 Range/Units 03:45 04:55 WBC (4.5-11.0) K/mm3 RBC (3.65-5.03) M/mm3 Hgb (10.1-14.3) gm/dl Hct (30.3-42.9) % MCV (79-97) fl MCH (28-32) pg RDW (13.2-15.2) % Lymph % (Auto) (13.4-35.0) % Jenkins # (0.0-0.8) K/mm3 Seg Neutrophils % (40.0-70.0) % Seg Neutrophils # (1.8-7.7) K/mm3 POC ABG pCO2 (35-45) Sodium 146 H (137-145) mmol/L Potassium 5.1 H (3.6-5.0) mmol/L Chloride 110.9 H (98-107) mmol/L Carbon Dioxide 16 L (22-30) mmol/L BUN 146 H (7-17) mg/dL Creatinine 4.0 H (0.7-1.2) mg/dL Glucose 108 H (65-100) mg/dL POC Glucose 133 H (70-105) Calcium (8.4-10.2) mg/dL Magnesium 3.00 H (1.7-2.3) mg/dL Urine Creatinine (0.1-20.0) mg/dL Urine Total Protein (5-11.8) mg/dL Crossmatch Microbiology 09/13/16 09:04 Peripheral/Venous Blood Culture - Preliminary NO GROWTH AFTER 72 HOURS 09/13/16 08:39 Peripheral/Venous Blood Culture - Preliminary NO GROWTH AFTER 72 HOURS 09/15/16 18:44 Stool Stool Occult Blood (HORTENCIA) - Final 09/13/16 10:30 Urine,[place] Urine Culture - Preliminary NO GROWTH AFTER 48 HOURS 09/13/16 14:06 Tracheal Aspirate Sputum Culture - Final 09/11/16 15:03 Stool C. difficile DNA Amplification - Final 09/10/16 10:58 Urine,Clean Catch Urine Culture - Preliminary NO GROWTH AFTER 48 HOURS 09/07/16 17:39 Tracheal Aspirate Sputum Culture - Final
[2016-09-17] MEDS: DELTASONE PO SCH (09:22)
[2016-09-17] MEDS: LEVEMIR (NF) SUB-Q SCH (09:23)
[2016-09-17] MEDS: LONITEN PO SCH (09:23)
[2016-09-17] MEDS: PROTONIX PO SCH ×2 (09:23→22:22)
--- NOTE | 2016-09-17 11:15 | Progress Note ---
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 However renal prognosis remains guarded - no emergent need for INFORMATION SYSTEMS [employer]PER[employer] at this time BUN noted - likely multifactorial, steroids and JUANITA Will start free H2O with tube feeds Start po bicarb Vent management per critical care Neurology recommendations noted Dose medications for renal function Avoid potential nephrotoxins Subjective Date of service: 09/17/16 Principal diagnosis: Acute Respiratory Failure on MVS; Acute CVA; Acute Encephalopathy Interval history: No acute events overnight. Objective - Vital Signs Vital signs: Vital Signs - 12hr 09/16/16 09/17/16 09/17/16 23:30 00:00 00:15 Temperature Pulse Rate 105 H 96 H 96 H Pulse Rate [ From Monitor] Pulse Rate [ Right Radial] Respiratory 15 14 14 Rate Blood Pressure 142/67 109/50 O2 Sat by Pulse 99 100 Oximetry 09/17/16 09/17/16 09/17/16 00:30 01:00 01:30 Temperature Pulse Rate 106 H 111 H 106 H Pulse Rate [ From Monitor] Pulse Rate [ Right Radial] Respiratory 14 15 14 Rate Blood Pressure 126/62 167/88 129/66 O2 Sat by Pulse 99 100 Oximetry 09/17/16 09/17/16 09/17/16 01:50 02:00 02:30 Temperature Pulse Rate 103 H 105 H 103 H Pulse Rate [ 102 H From Monitor] Pulse Rate [ Right Radial] Respiratory 14 14 Rate Blood Pressure 134/66 125/65 O2 Sat by Pulse 100 100 100 Oximetry 09/17/16 09/17/16 09/17/16 03:00 03:26 03:30 Temperature Pulse Rate 101 H 105 H 105 H Pulse Rate [ From Monitor] Pulse Rate [ Right Radial] Respiratory 14 14 Rate Blood Pressure 126/69 126/69 118/67 O2 Sat by Pulse 100 100 100 Oximetry 09/17/16 09/17/16 09/17/16 03:35 03:54 04:01 Temperature 99.4 F Pulse Rate 105 H 107 H Pulse Rate [ 106 H From Monitor] Pulse Rate [ Right Radial] Respiratory 14 14 Rate Blood Pressure 140/63 O2 Sat by Pulse 100 100 Oximetry 09/17/16 09/17/16 09/17/16 04:30 05:00 05:02 Temperature Pulse Rate 100 H 102 H 105 H Pulse Rate [ From Monitor] Pulse Rate [ Right Radial] Respiratory 14 14 Rate Blood Pressure 156/75 141/65 156/75 O2 Sat by Pulse 100 100 Oximetry 09/17/16 09/17/16 09/17/16 05:15 05:27 05:30 Temperature Pulse Rate 95 H Pulse Rate [ From Monitor] Pulse Rate [ Right Radial] Respiratory 14 15 14 Rate Blood Pressure 151/65 O2 Sat by Pulse 100 100 Oximetry 09/17/16 09/17/16 09/17/16 06:00 06:30 07:00 Temperature Pulse Rate 94 H 93 H 96 H Pulse Rate [ From Monitor] Pulse Rate [ Right Radial] Respiratory 14 14 15 Rate Blood Pressure 171/78 124/62 179/85 O2 Sat by Pulse 100 100 Oximetry 09/17/16 09/17/16 09/17/16 07:30 07:35 08:00 Temperature 98.9 F Pulse Rate 92 H 114 H Pulse Rate [ From Monitor] Pulse Rate [ Right Radial] Respiratory 14 14 Rate Blood Pressure 128/66 156/68 O2 Sat by Pulse 100 100 Oximetry 09/17/16 09/17/16 09/17/16 08:30 09:00 09:30 Temperature Pulse Rate 110 H 117 H 116 H Pulse Rate [ From Monitor] Pulse Rate [ Right Radial] Respiratory 15 22 14 Rate Blood Pressure 195/81 213/107 156/75 O2 Sat by Pulse 100 100 100 Oximetry 09/17/16 10:00 Temperature Pulse Rate 125 H Pulse Rate [ From Monitor] Pulse Rate [ 125 H Right Radial] Respiratory 20 Rate Blood Pressure 127/68 O2 Sat by Pulse 99 Oximetry - General Appearance General appearance: intubated EENT: ATNC Respiratory: Present: Other (coarse breath sounds) Cardiology: regular, S1S2 Gastrointestinal: normal, no tenderness, no distended Integumentary: no rash Musculoskeletal: other (no edema) - Lab 09/17/16 03:45 09/17/16 03:45 Most recent lab results Calcium 8.7 mg/dL (8.4-10.2) 09/17/16 03:45 Phosphorus 4.30 mg/dL (2.5-4.5) D 09/08/16 06:18 Magnesium 3.00 mg/dL (1.7-2.3) H 09/17/16 03:45 Urine Creatinine 47.4 mg/dL (0.1-20.0) H 09/16/16 19:19 Urine Sodium 36 mEq/L 09/16/16 19:19 Urine Total Protein 16 mg/dL (5-11.8) H 09/16/16 19:19
--- NOTE | 2016-09-17 16:00 | Progress Note ---
Assessment and Plan - Patient Problems (1) Acute respiratory failure with hypoxia Current Visit: Yes Status: Acute Plan to address problem: - continue aspiration precautions / address VAP bundles - continue to wean oxygen for MAP > 94% - continue bronchodilators and pulmonary toilet - will continue to taper solumedrol (no active needs pulmonary-[place]) - completed empiric levaquin dosing - consult placed for trach and PEG placement - continue daytime PSV trials as tolerated while awaiting trach and PEG (2) Acute CVA (cerebrovascular accident) Current Visit: Yes Status: Acute Plan to address problem: - out of tpA window (initially stopped due to uncontrolled HTN) - Left MCA teritory stroke with some midline shift on last CT - seen by neurology and prognosis for recovery of mental status guarded to poor - optimizing secondary prevention modalities now (BP, lipid anti-platelet therapy) - will continue steroid taper (changed to p.o. prednisone) (3) Hypertensive emergency Current Visit: Yes Status: Acute Plan to address problem: - resolved - continue clonidine patch at 0.3mg qweek - continue prn IV rescue labetalol - add metoprolol re: tachycardia also - started on minoxidil by nephrology - BP's better controlled overall (4) Obesity (BMI 35.0-39.9 without comorbidity) Current Visit: Yes Status: Chronic Plan to address problem: - adjust tube feeds per printer operator's recommendations - supportive and preventive skin care re: breakdown (5) Type 2 diabetes mellitus Current Visit: Yes Status: Chronic Qualifiers: Diabetes mellitus complication status: D Diabetes mellitus complication detail: D Diabetic retinopathy severity: D Proliferative retinopathy type: P Diabetes mellitus macular edema: D 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 leukemoid reaction - ? steroid leucocytosis - continue empiric levaquin - get CRP & lactate and trend - tapering systemic steroids - follow clinically - C-diff infection assay negative - ID consulted and on flagyl - WBC trending down - cultures NGTD (7) Discharge planning issues Current Visit: Yes Status: Acute Plan to address problem: - she remains critically ill on life sustaining interventions including MVS and at risk for further acute deterioration including .....awaiting trach and PEG ....LTAC thereafter ....30' CCT without overlap Subjective Date of service: 09/17/16 Principal diagnosis: Acute Respiratory Failure on MVS; Acute CVA; Acute Encephalopathy Interval history: Seen and examined at bedside; 24 hour events reviewed; nursing and respiratory care staff consulted; no adverse overnight events reported to me; remains on MVS ; AMS is persistent; to resume PSV trials now; remains non oliguric; no gross GI bleeding; care plan discussed with brother earlier; no new issues acutely but BP remains labile also Objective Vital Signs - 12hr 09/17/16 09/17/16 09/17/16 04:01 04:30 05:00 Temperature Pulse Rate 107 H 100 H 102 H Pulse Rate [ From Monitor] Pulse Rate [ Right Radial] Respiratory 14 14 14 Rate Blood Pressure 140/63 156/75 141/65 O2 Sat by Pulse 100 100 100 Oximetry 09/17/16 09/17/16 09/17/16 05:02 05:15 05:27 Temperature Pulse Rate 105 H Pulse Rate [ From Monitor] Pulse Rate [ Right Radial] Respiratory 14 15 Rate Blood Pressure 156/75 O2 Sat by Pulse 100 Oximetry 09/17/16 09/17/16 09/17/16 05:30 06:00 06:30 Temperature Pulse Rate 95 H 94 H 93 H Pulse Rate [ From Monitor] Pulse Rate [ Right Radial] Respiratory 14 14 14 Rate Blood Pressure 151/65 171/78 124/62 O2 Sat by Pulse 100 100 Oximetry 09/17/16 09/17/16 09/17/16 07:00 07:30 07:35 Temperature 98.9 F Pulse Rate 96 H 92 H Pulse Rate [ From Monitor] Pulse Rate [ Right Radial] Respiratory 15 14 Rate Blood Pressure 179/85 128/66 O2 Sat by Pulse 100 100 Oximetry 09/17/16 09/17/16 09/17/16 08:00 08:30 09:00 Temperature Pulse Rate 114 H 110 H 117 H Pulse Rate [ From Monitor] Pulse Rate [ Right Radial] Respiratory 14 15 22 Rate Blood Pressure 156/68 195/81 213/107 O2 Sat by Pulse 100 100 100 Oximetry 09/17/16 09/17/16 09/17/16 09:30 10:00 10:30 Temperature Pulse Rate 116 H 125 H 129 H Pulse Rate [ From Monitor] Pulse Rate [ 125 H Right Radial] Respiratory 14 20 16 Rate Blood Pressure 156/75 127/68 135/66 O2 Sat by Pulse 100 99 94 Oximetry 09/17/16 09/17/16 09/17/16 11:00 11:12 11:30 Temperature Pulse Rate 130 H 127 H 119 H Pulse Rate [ From Monitor] Pulse Rate [ Right Radial] Respiratory 17 15 Rate Blood Pressure 125/59 125/59 117/63 O2 Sat by Pulse 94 96 Oximetry 09/17/16 09/17/16 09/17/16 11:43 12:00 12:30 Temperature 98.4 F Pulse Rate 107 H 103 H Pulse Rate [ From Monitor] Pulse Rate [ Right Radial] Respiratory 16 16 Rate Blood Pressure 107/62 133/63 O2 Sat by Pulse 97 98 Oximetry 09/17/16 09/17/16 09/17/16 13:00 13:30 13:44 Temperature Pulse Rate 100 H 106 H 99 H Pulse Rate [ From Monitor] Pulse Rate [ Right Radial] Respiratory 16 18 Rate Blood Pressure 132/72 148/76 148/76 O2 Sat by Pulse 97 96 100 Oximetry 09/17/16 09/17/16 09/17/16 14:00 14:30 15:00 Temperature Pulse Rate 97 H 97 H 101 H Pulse Rate [ 96 H From Monitor] Pulse Rate [ Right Radial] Respiratory 15 14 14 Rate Blood Pressure 156/78 154/74 162/67 O2 Sat by Pulse 100 100 Oximetry 09/17/16 15:49 Temperature 98.5 F Pulse Rate Pulse Rate [ From Monitor] Pulse Rate [ Right Radial] Respiratory Rate Blood Pressure O2 Sat by Pulse Oximetry Constitutional: no acute distress, agitated, other (encephalopathic) Eyes: non-icteric ENT: oropharynx moist Neck: supple, no lymphadenopathy Effort: normal Ascultation: Bilateral: clear, diminished breath sounds Cardiovascular: regular rate and rhythm Gastrointestinal: normoactive bowel sounds, soft, non-tender, non-distended Integumentary: normal Extremities: no cyanosis, no edema, pulses normal, no ischemia or petechiae Neurologic: pupils equal and round, other (sedated) Psychiatric: other (unable to assess) CBC and BMP: 09/18/16 08:31 09/18/16 08:31 ABG, PT/INR, D-dimer: ABG POC ABG pH 7.350 (7.35-7.45) 09/16/16 12:04 POC ABG pCO2 32.9 (35-45) L 09/16/16 12:04 POC ABG pO2 90 (80-105) 09/16/16 12:04 POC ABG HCO3 18.2 09/16/16 12:04 POC ABG Total CO2 19 09/16/16 12:04 POC ABG O2 Sat 97 09/16/16 12:04 PT/INR, D-dimer PT 13.8 Sec. (12.2-14.9) 09/15/16 05:00 INR 1.01 (0.87-1.13) 09/15/16 05:00 Abnormal lab findings: Abnormal Labs 09/03/16 09/03/16 09/03/16 12:12 15:07 16:20 WBC RBC Hgb Hct MCV MCH RDW Plt Count Lymph % (Auto) [place] # Seg Neutrophils % Seg Neuts % (Manual) Lymphocytes % (Manual) Monocytes % (Manual) Seg Neutrophils # Seg Neutrophils # Man Lymphocytes # (Manual) Monocytes # (Manual) Fibrinogen dRVVT Confirm Interp Factor V Activity POC ABG pH 7.452 H POC ABG pCO2 POC ABG pO2 Sodium Potassium Chloride Carbon Dioxide BUN Creatinine Glucose POC Glucose 178 H Calcium Phosphorus 2.20 L Magnesium 1.60 L C-Reactive Protein Total Protein Albumin Triglycerides HDL Cholesterol Urine WBC (Auto) Urine Creatinine Urine Total Protein Rheumatoid Factor Complement C4 Crossmatch 09/03/16 09/03/16 09/03/16 17:57 17:58 23:50 WBC RBC Hgb Hct MCV MCH RDW Plt Count Lymph % (Auto) [place] # Seg Neutrophils % Seg Neuts % (Manual) Lymphocytes % (Manual) Monocytes % (Manual) Seg Neutrophils # Seg Neutrophils # Man Lymphocytes # (Manual) Monocytes # (Manual) Fibrinogen dRVVT Confirm Interp Factor V Activity POC ABG pH POC ABG pCO2 POC ABG pO2 Sodium Potassium Chloride Carbon Dioxide BUN Creatinine Glucose POC Glucose 162 H 145 H Calcium Phosphorus 2.30 L Magnesium C-Reactive Protein Total Protein Albumin Triglycerides HDL Cholesterol Urine WBC (Auto) Urine Creatinine Urine Total Protein Rheumatoid Factor Complement C4 Crossmatch 09/04/16 09/04/16 09/04/16 03:31 03:31 05:42 WBC RBC Hgb 9.7 L D Hct MCV 72 L MCH 23 L RDW 17.5 H Plt Count Lymph % (Auto) 11.1 L [place] # Seg Neutrophils % 84.3 H Seg Neuts % (Manual) Lymphocytes % (Manual) Monocytes % (Manual) Seg Neutrophils # 8.9 H Seg Neutrophils # Man Lymphocytes # (Manual) Monocytes # (Manual) Fibrinogen dRVVT Confirm Interp Factor V Activity POC ABG pH POC ABG pCO2 POC ABG pO2 Sodium 135 L Potassium 2.9 L* Chloride 97.2 L Carbon Dioxide 19 L BUN Creatinine 1.7 H Glucose 170 H POC Glucose 152 H Calcium Phosphorus Magnesium C-Reactive Protein Total Protein Albumin Triglycerides 160 H HDL Cholesterol 31 L Urine WBC (Auto) Urine Creatinine Urine Total Protein Rheumatoid Factor Complement C4 Crossmatch 09/04/16 09/04/16 09/04/16 11:34 17:46 23:29 WBC RBC Hgb Hct MCV MCH RDW Plt Count Lymph % (Auto) [place] # Seg Neutrophils % Seg Neuts % (Manual) Lymphocytes % (Manual) Monocytes % (Manual) Seg Neutrophils # Seg Neutrophils # Man Lymphocytes # (Manual) Monocytes # (Manual) Fibrinogen dRVVT Confirm Interp Factor V Activity POC ABG pH POC ABG pCO2 POC ABG pO2 Sodium Potassium Chloride Carbon Dioxide BUN Creatinine Glucose POC Glucose 165 H 210 H 139 H Calcium Phosphorus Magnesium C-Reactive Protein Total Protein Albumin Triglycerides HDL Cholesterol Urine WBC (Auto) Urine Creatinine Urine Total Protein Rheumatoid Factor Complement C4 Crossmatch 09/05/16 09/05/16 09/05/16 04:05 04:05 05:38 WBC RBC Hgb Hct MCV 76 L D MCH 23 L RDW 17.8 H Plt Count Lymph % (Auto) [place] # Seg Neutrophils % Seg Neuts % (Manual) Lymphocytes % (Manual) Monocytes % (Manual) Seg Neutrophils # Seg Neutrophils # Man Lymphocytes # (Manual) Monocytes # (Manual) Fibrinogen dRVVT Confirm Interp Factor V Activity POC ABG pH POC ABG pCO2 POC ABG pO2 Sodium 134 L Potassium Chloride Carbon Dioxide 18 L BUN Creatinine 1.8 H Glucose 192 H POC Glucose 175 H Calcium Phosphorus Magnesium C-Reactive Protein Total Protein Albumin Triglycerides HDL Cholesterol Urine WBC (Auto) Urine Creatinine Urine Total Protein Rheumatoid Factor Complement C4 Crossmatch 09/05/16 09/05/16 09/05/16 11:38 17:48 23:22 WBC RBC Hgb Hct MCV MCH RDW Plt Count Lymph % (Auto) [place] # Seg Neutrophils % Seg Neuts % (Manual) Lymphocytes % (Manual) Monocytes % (Manual) Seg Neutrophils # Seg Neutrophils # Man Lymphocytes # (Manual) Monocytes # (Manual) Fibrinogen dRVVT Confirm Interp Factor V Activity POC ABG pH POC ABG pCO2 POC ABG pO2 Sodium Potassium Chloride Carbon Dioxide BUN Creatinine Glucose POC Glucose 164 H 186 H 195 H Calcium Phosphorus Magnesium C-Reactive Protein Total Protein Albumin Triglycerides HDL Cholesterol Urine WBC (Auto) Urine Creatinine Urine Total Protein Rheumatoid Factor Complement C4 Crossmatch 09/06/16 09/06/16 09/06/16 04:12 05:59 07:32 WBC RBC Hgb Hct MCV MCH RDW Plt Count Lymph % (Auto) [place] # Seg Neutrophils % Seg Neuts % (Manual) Lymphocytes % (Manual) Monocytes % (Manual) Seg Neutrophils # Seg Neutrophils # Man Lymphocytes # (Manual) Monocytes # (Manual) Fibrinogen dRVVT Confirm Interp Factor V Activity POC ABG pH 7.514 H POC ABG pCO2 29.1 L POC ABG pO2 72 L Sodium 133 L Potassium 3.4 L Chloride 94.9 L Carbon Dioxide 19 L BUN 30 H Creatinine 2.1 H Glucose 139 H POC Glucose 146 H Calcium Phosphorus Magnesium C-Reactive Protein Total Protein Albumin Triglycerides HDL Cholesterol Urine WBC (Auto) Urine Creatinine Urine Total Protein Rheumatoid Factor Complement C4 Crossmatch 09/06/16 09/06/16 09/06/16 11:57 17:58 19:02 WBC RBC Hgb Hct MCV MCH RDW Plt Count Lymph % (Auto) [place] # Seg Neutrophils % Seg Neuts % (Manual) Lymphocytes % (Manual) Monocytes % (Manual) Seg Neutrophils # Seg Neutrophils # Man Lymphocytes # (Manual) Monocytes # (Manual) Fibrinogen dRVVT Confirm Interp Factor V Activity POC ABG pH 7.465 H POC ABG pCO2 32.0 L POC ABG pO2 Sodium Potassium Chloride Carbon Dioxide BUN Creatinine Glucose POC Glucose 165 H 160 H Calcium Phosphorus Magnesium C-Reactive Protein Total Protein Albumin Triglycerides HDL Cholesterol Urine WBC (Auto) Urine Creatinine Urine Total Protein Rheumatoid Factor Complement C4 Crossmatch 09/06/16 09/07/16 09/07/16 23:45 02:47 02:47 WBC RBC Hgb Hct MCV MCH RDW Plt Count Lymph % (Auto) [place] # Seg Neutrophils % Seg Neuts % (Manual) Lymphocytes % (Manual) Monocytes % (Manual) Seg Neutrophils # Seg Neutrophils # Man Lymphocytes # (Manual) Monocytes # (Manual) Fibrinogen dRVVT Confirm Interp Factor V Activity POC ABG pH POC ABG pCO2 POC ABG pO2 Sodium Potassium Chloride Carbon Dioxide BUN Creatinine Glucose POC Glucose 204 H Calcium Phosphorus Magnesium C-Reactive Protein Total Protein Albumin Triglycerides HDL Cholesterol Urine WBC (Auto) 68.0 H Urine Creatinine 106.1 H Urine Total Protein Rheumatoid Factor Complement C4 Crossmatch 09/07/16 09/07/16 09/07/16 04:50 06:19 06:39 WBC RBC Hgb Hct MCV MCH RDW Plt Count Lymph % (Auto) [place] # Seg Neutrophils % Seg Neuts % (Manual) Lymphocytes % (Manual) Monocytes % (Manual) Seg Neutrophils # Seg Neutrophils # Man Lymphocytes # (Manual) Monocytes # (Manual) Fibrinogen dRVVT Confirm Interp Factor V Activity POC ABG pH 7.457 H POC ABG pCO2 32.1 L POC ABG pO2 76 L Sodium 132 L Potassium Chloride 94.7 L Carbon Dioxide BUN 53 H Creatinine 2.9 H Glucose 151 H POC Glucose 149 H Calcium Phosphorus Magnesium C-Reactive Protein Total Protein Albumin Triglycerides HDL Cholesterol Urine WBC (Auto) Urine Creatinine Urine Total Protein Rheumatoid Factor Complement C4 Crossmatch 09/07/16 09/07/16 09/07/16 09:20 11:43 11:43 WBC 19.4 H RBC Hgb 8.3 L Hct 26.4 L D MCV 72 L D MCH 22 L RDW 17.9 H Plt Count Lymph % (Auto) 8.5 L [place] # 1.0 H Seg Neutrophils % 85.8 H Seg Neuts % (Manual) Lymphocytes % (Manual) Monocytes % (Manual) Seg Neutrophils # 16.6 H Seg Neutrophils # Man Lymphocytes # (Manual) Monocytes # (Manual) Fibrinogen dRVVT Confirm Interp Factor V Activity POC ABG pH POC ABG pCO2 POC ABG pO2 Sodium 134 L Potassium Chloride 97.2 L Carbon Dioxide 20 L BUN 58 H Creatinine 2.9 H Glucose 147 H POC Glucose Calcium Phosphorus 2.40 L Magnesium 2.40 H C-Reactive Protein Total Protein 5.8 L Albumin 2.2 L Triglycerides HDL Cholesterol Urine WBC (Auto) Urine Creatinine Urine Total Protein Rheumatoid Factor Complement C4 58 H Crossmatch 09/07/16 09/07/1617 11:50 16:00 17:31 WBC RBC Hgb Hct MCV MCH RDW Plt Count Lymph % (Auto) [place] # Seg Neutrophils % Seg Neuts % (Manual) Lymphocytes % (Manual) Monocytes % (Manual) Seg Neutrophils # Seg Neutrophils # Man Lymphocytes # (Manual) Monocytes # (Manual) Fibrinogen dRVVT Confirm Interp Factor V Activity POC ABG pH POC ABG pCO2 POC ABG pO2 158 H Sodium Potassium Chloride Carbon Dioxide BUN Creatinine Glucose POC Glucose 175 H Calcium Phosphorus Magnesium C-Reactive Protein Total Protein Albumin Triglycerides HDL Cholesterol Urine WBC (Auto) Urine Creatinine 66.3 H Urine Total Protein Rheumatoid Factor Complement C4 Crossmatch 09/07/16 09/08/16 09/08/16 23:50 05:46 06:18 WBC 17.8 H RBC 3.58 L Hgb 8.1 L Hct 25.5 L MCV 71 L MCH 23 L RDW 18.4 H Plt Count Lymph % (Auto) [place] # Seg Neutrophils % Seg Neuts % (Manual) 92.0 H Lymphocytes % (Manual) 6.0 L Monocytes % (Manual) Seg Neutrophils # Seg Neutrophils # Man 16.4 H Lymphocytes # (Manual) 1.1 L Monocytes # (Manual) Fibrinogen dRVVT Confirm Interp Factor V Activity POC ABG pH POC ABG pCO2 34.3 L POC ABG pO2 71 L Sodium Potassium Chloride Carbon Dioxide BUN Creatinine Glucose POC Glucose 216 H Calcium Phosphorus Magnesium C-Reactive Protein Total Protein Albumin Triglycerides HDL Cholesterol Urine WBC (Auto) Urine Creatinine Urine Total Protein Rheumatoid Factor Complement C4 Crossmatch 09/08/16 09/08/16 09/08/16 06:18 06:51 10:55 WBC RBC Hgb Hct MCV MCH RDW Plt Count Lymph % (Auto) [place] # Seg Neutrophils % Seg Neuts % (Manual) Lymphocytes % (Manual) Monocytes % (Manual) Seg Neutrophils # Seg Neutrophils # Man Lymphocytes # (Manual) Monocytes # (Manual) Fibrinogen dRVVT Confirm Interp Factor V Activity POC ABG pH POC ABG pCO2 POC ABG pO2 Sodium 133 L Potassium Chloride 96.9 L Carbon Dioxide 20 L BUN 63 H Creatinine 2.7 H Glucose 195 H POC Glucose 204 H 169 H Calcium Phosphorus Magnesium C-Reactive Protein Total Protein Albumin Triglycerides HDL Cholesterol Urine WBC (Auto) Urine Creatinine Urine Total Protein Rheumatoid Factor Complement C4 Crossmatch 09/08/16 09/08/16 09/08/16 11:48 11:48 11:48 WBC RBC Hgb Hct MCV MCH RDW Plt Count Lymph % (Auto) [place] # Seg Neutrophils % Seg Neuts % (Manual) Lymphocytes % (Manual) Monocytes % (Manual) Seg Neutrophils # Seg Neutrophils # Man Lymphocytes # (Manual) Monocytes # (Manual) Fibrinogen 750 H dRVVT Confirm Interp Factor V Activity POC ABG pH POC ABG pCO2 POC ABG pO2 Sodium Potassium Chloride Carbon Dioxide BUN Creatinine Glucose POC Glucose Calcium Phosphorus Magnesium C-Reactive Protein 15.70 H Total Protein Albumin Triglycerides HDL Cholesterol Urine WBC (Auto) Urine Creatinine Urine Total Protein Rheumatoid Factor 24 H Complement C4 Crossmatch 09/08/16 09/08/16 09/09/16 15:35 18:25 00:24 WBC RBC Hgb Hct MCV MCH RDW Plt Count Lymph % (Auto) [place] # Seg Neutrophils % Seg Neuts % (Manual) Lymphocytes % (Manual) Monocytes % (Manual) Seg Neutrophils # Seg Neutrophils # Man Lymphocytes # (Manual) Monocytes # (Manual) Fibrinogen dRVVT Confirm Interp Factor V Activity 182 H POC ABG pH POC ABG pCO2 POC ABG pO2 Sodium Potassium Chloride Carbon Dioxide BUN Creatinine Glucose POC Glucose 184 H 216 H Calcium Phosphorus Magnesium C-Reactive Protein Total Protein Albumin Triglycerides HDL Cholesterol Urine WBC (Auto) Urine Creatinine Urine Total Protein Rheumatoid Factor Complement C4 Crossmatch 09/09/16 09/09/16 09/09/16 03:00 03:00 04:04 WBC 27.9 H RBC Hgb 8.7 L Hct 28.1 L MCV 72 L MCH 22 L RDW 18.4 H Plt Count 485 H Lymph % (Auto) [place] # Seg Neutrophils % Seg Neuts % (Manual) 77.0 H Lymphocytes % (Manual) 9.0 L Monocytes % (Manual) Seg Neutrophils # Seg Neutrophils # Man 21.5 H Lymphocytes # (Manual) Monocytes # (Manual) 2.0 H Fibrinogen dRVVT Confirm Interp Factor V Activity POC ABG pH POC ABG pCO2 POC ABG pO2 121 H Sodium 135 L Potassium Chloride 96.3 L Carbon Dioxide 21 L BUN 83 H Creatinine 3.0 H Glucose 135 H POC Glucose Calcium Phosphorus Magnesium C-Reactive Protein Total Protein Albumin Triglycerides HDL Cholesterol Urine WBC (Auto) Urine Creatinine Urine Total Protein Rheumatoid Factor Complement C4 Crossmatch 09/09/16 09/09/16 09/09/16 05:41 11:55 14:13 WBC RBC Hgb Hct MCV MCH RDW Plt Count Lymph % (Auto) [place] # Seg Neutrophils % Seg Neuts % (Manual) Lymphocytes % (Manual) Monocytes % (Manual) Seg Neutrophils # Seg Neutrophils # Man Lymphocytes # (Manual) Monocytes # (Manual) Fibrinogen dRVVT Confirm Interp Factor V Activity POC ABG pH POC ABG pCO2 POC ABG pO2 Sodium Potassium Chloride Carbon Dioxide BUN Creatinine Glucose POC Glucose 155 H 186 H Calcium Phosphorus Magnesium C-Reactive Protein Total Protein Albumin Triglycerides HDL Cholesterol Urine WBC (Auto) 25.0 H Urine Creatinine Urine Total Protein Rheumatoid Factor Complement C4 Crossmatch 09/09/16 09/09/16 09/10/16 17:33 23:13 05:09 WBC RBC Hgb Hct MCV MCH RDW Plt Count Lymph % (Auto) [place] # Seg Neutrophils % Seg Neuts % (Manual) Lymphocytes % (Manual) Monocytes % (Manual) Seg Neutrophils # Seg Neutrophils # Man Lymphocytes # (Manual) Monocytes # (Manual) Fibrinogen dRVVT Confirm Interp Factor V Activity POC ABG pH POC ABG pCO2 POC ABG pO2 74 L Sodium Potassium Chloride Carbon Dioxide BUN Creatinine Glucose POC Glucose 211 H 215 H Calcium Phosphorus Magnesium C-Reactive Protein Total Protein Albumin Triglycerides HDL Cholesterol Urine WBC (Auto) Urine Creatinine Urine Total Protein Rheumatoid Factor Complement C4 Crossmatch 09/10/16 09/10/16 09/10/16 05:17 05:17 11:31 WBC 15.8 H RBC 3.25 L Hgb 7.3 L Hct 22.9 L MCV 71 L MCH 23 L RDW 18.4 H Plt Count Lymph % (Auto) [place] # Seg Neutrophils % Seg Neuts % (Manual) 91.0 H Lymphocytes % (Manual) 4.0 L Monocytes % (Manual) Seg Neutrophils # Seg Neutrophils # Man 14.4 H Lymphocytes # (Manual) 0.6 L Monocytes # (Manual) Fibrinogen dRVVT Confirm Interp Factor V Activity POC ABG pH POC ABG pCO2 POC ABG pO2 Sodium Potassium Chloride Carbon Dioxide 21 L BUN 93 H Creatinine 2.9 H Glucose 146 H POC Glucose 188 H Calcium 8.1 L Phosphorus Magnesium C-Reactive Protein Total Protein Albumin Triglycerides HDL Cholesterol Urine WBC (Auto) Urine Creatinine Urine Total Protein Rheumatoid Factor Complement C4 Crossmatch 09/10/16 09/10/16 09/10/16 13:17 17:20 23:32 WBC RBC Hgb Hct MCV MCH RDW Plt Count Lymph % (Auto) [place] # Seg Neutrophils % Seg Neuts % (Manual) Lymphocytes % (Manual) Monocytes % (Manual) Seg Neutrophils # Seg Neutrophils # Man Lymphocytes # (Manual) Monocytes # (Manual) Fibrinogen dRVVT Confirm Interp Factor V Activity POC ABG pH POC ABG pCO2 POC ABG pO2 Sodium Potassium Chloride Carbon Dioxide BUN Creatinine Glucose POC Glucose 199 H 186 H Calcium Phosphorus Magnesium C-Reactive Protein Total Protein Albumin Triglycerides HDL Cholesterol Urine WBC (Auto) Urine Creatinine Urine Total Protein Rheumatoid Factor Complement C4 Crossmatch See Detail 09/11/16 09/11/16 09/11/16 05:10 05:10 05:17 WBC 28.4 H RBC Hgb 9.2 L Hct 29.3 L D MCV 73 L MCH 23 L RDW 18.9 H Plt Count 452 H Lymph % (Auto) [place] # Seg Neutrophils % Seg Neuts % (Manual) 89.5 H Lymphocytes % (Manual) 2.0 L Monocytes % (Manual) Seg Neutrophils # Seg Neutrophils # Man 25.4 H Lymphocytes # (Manual) 0.6 L Monocytes # (Manual) 1.3 H Fibrinogen dRVVT Confirm Interp Factor V Activity POC ABG pH POC ABG pCO2 POC ABG pO2 Sodium 136 L Potassium Chloride Carbon Dioxide 18 L BUN 107 H Creatinine 2.6 H Glucose 187 H POC Glucose 230 H Calcium 8.3 L Phosphorus Magnesium C-Reactive Protein Total Protein Albumin Triglycerides HDL Cholesterol Urine WBC (Auto) Urine Creatinine Urine Total Protein Rheumatoid Factor Complement C4 Crossmatch 09/11/16 09/11/16 09/11/16 05:55 12:02 17:32 WBC RBC Hgb Hct MCV MCH RDW Plt Count Lymph % (Auto) [place] # Seg Neutrophils % Seg Neuts % (Manual) Lymphocytes % (Manual) Monocytes % (Manual) Seg Neutrophils # Seg Neutrophils # Man Lymphocytes # (Manual) Monocytes # (Manual) Fibrinogen dRVVT Confirm Interp Factor V Activity POC ABG pH POC ABG pCO2 33.8 L POC ABG pO2 Sodium Potassium Chloride Carbon Dioxide BUN Creatinine Glucose POC Glucose 191 H 239 H Calcium Phosphorus Magnesium C-Reactive Protein Total Protein Albumin Triglycerides HDL Cholesterol Urine WBC (Auto) Urine Creatinine Urine Total Protein Rheumatoid Factor Complement C4 Crossmatch 09/11/16 09/12/16 09/12/16 23:52 05:09 05:32 WBC RBC Hgb Hct MCV MCH RDW Plt Count Lymph % (Auto) [place] # Seg Neutrophils % Seg Neuts % (Manual) Lymphocytes % (Manual) Monocytes % (Manual) Seg Neutrophils # Seg Neutrophils # Man Lymphocytes # (Manual) Monocytes # (Manual) Fibrinogen dRVVT Confirm Interp Factor V Activity POC ABG pH POC ABG pCO2 34.6 L POC ABG pO2 Sodium Potassium Chloride Carbon Dioxide BUN Creatinine Glucose POC Glucose 265 H 184 H Calcium Phosphorus Magnesium C-Reactive Protein Total Protein Albumin Triglycerides HDL Cholesterol Urine WBC (Auto) Urine Creatinine Urine Total Protein Rheumatoid Factor Complement C4 Crossmatch 09/12/16 09/12/16 09/12/16 06:45 06:45 07:22 WBC 31.7 H RBC 3.54 L Hgb 8.3 L Hct 25.9 L MCV 73 L MCH 23 L RDW 18.9 H Plt Count Lymph % (Auto) [place] # Seg Neutrophils % Seg Neuts % (Manual) 88.5 H Lymphocytes % (Manual) 4.5 L Monocytes % (Manual) Seg Neutrophils # Seg Neutrophils # Man 28.1 H Lymphocytes # (Manual) Monocytes # (Manual) 1.0 H Fibrinogen dRVVT Confirm Interp Factor V Activity POC ABG pH POC ABG pCO2 POC ABG pO2 Sodium Potassium Chloride Carbon Dioxide 20 L BUN 115 H Creatinine 2.7 H Glucose 165 H POC Glucose Calcium 8.0 L Phosphorus Magnesium C-Reactive Protein Total Protein Albumin Triglycerides 217 H HDL Cholesterol Urine WBC (Auto) Urine Creatinine Urine Total Protein Rheumatoid Factor Complement C4 Crossmatch 09/12/16 09/12/16 09/12/16 07:22 09:59 12:21 WBC RBC Hgb Hct MCV MCH RDW Plt Count Lymph % (Auto) [place] # Seg Neutrophils % Seg Neuts % (Manual) Lymphocytes % (Manual) Monocytes % (Manual) Seg Neutrophils # Seg Neutrophils # Man Lymphocytes # (Manual) Monocytes # (Manual) Fibrinogen dRVVT Confirm Interp Positive H Factor V Activity POC ABG pH POC ABG pCO2 POC ABG pO2 Sodium Potassium Chloride Carbon Dioxide BUN Creatinine Glucose POC Glucose 224 H Calcium Phosphorus Magnesium C-Reactive Protein 1.70 H Total Protein Albumin Triglycerides HDL Cholesterol Urine WBC (Auto) Urine Creatinine Urine Total Protein Rheumatoid Factor Complement C4 Crossmatch 09/12/16 09/12/16 09/13/16 16:51 23:28 04:00 WBC 45.0 H* RBC Hgb 9.4 L Hct MCV 75 L MCH 23 L RDW 19.0 H Plt Count 470 H Lymph % (Auto) [place] # Seg Neutrophils % Seg Neuts % (Manual) 89.0 H Lymphocytes % (Manual) 5.0 L Monocytes % (Manual) Seg Neutrophils # Seg Neutrophils # Man 40.1 H Lymphocytes # (Manual) Monocytes # (Manual) Fibrinogen dRVVT Confirm Interp Factor V Activity POC ABG pH POC ABG pCO2 POC ABG pO2 Sodium Potassium Chloride Carbon Dioxide BUN Creatinine Glucose POC Glucose 169 H 150 H Calcium Phosphorus Magnesium C-Reactive Protein Total Protein Albumin Triglycerides HDL Cholesterol Urine WBC (Auto) Urine Creatinine Urine Total Protein Rheumatoid Factor Complement C4 Crossmatch 09/13/16 09/13/16 09/13/16 04:00 11:26 17:31 WBC RBC Hgb Hct MCV MCH RDW Plt Count Lymph % (Auto) [place] # Seg Neutrophils % Seg Neuts % (Manual) Lymphocytes % (Manual) Monocytes % (Manual) Seg Neutrophils # Seg Neutrophils # Man Lymphocytes # (Manual) Monocytes # (Manual) Fibrinogen dRVVT Confirm Interp Factor V Activity POC ABG pH POC ABG pCO2 POC ABG pO2 Sodium Potassium Chloride Carbon Dioxide 20 L BUN 116 H Creatinine 3.0 H Glucose 172 H POC Glucose 140 H 183 H Calcium Phosphorus Magnesium C-Reactive Protein Total Protein 6.2 L Albumin 2.9 L Triglycerides HDL Cholesterol Urine WBC (Auto) Urine Creatinine Urine Total Protein Rheumatoid Factor Complement C4 Crossmatch 09/13/16 09/14/16 09/14/16 23:23 04:06 04:07 WBC 29.4 H RBC Hgb 8.9 L Hct 27.3 L MCV 75 L MCH 24 L RDW 19.1 H Plt Count Lymph % (Auto) [place] # Seg Neutrophils % Seg Neuts % (Manual) 84.0 H Lymphocytes % (Manual) 6.0 L Monocytes % (Manual) 9.0 H Seg Neutrophils # Seg Neutrophils # Man 24.7 H Lymphocytes # (Manual) Monocytes # (Manual) 2.6 H Fibrinogen dRVVT Confirm Interp Factor V Activity POC ABG pH 7.342 L POC ABG pCO2 POC ABG pO2 116 H Sodium Potassium Chloride Carbon Dioxide BUN Creatinine Glucose POC Glucose 154 H Calcium Phosphorus Magnesium C-Reactive Protein Total Protein Albumin Triglycerides HDL Cholesterol Urine WBC (Auto) Urine Creatinine Urine Total Protein Rheumatoid Factor Complement C4 Crossmatch 09/14/16 09/14/16 09/14/16 04:07 05:29 12:19 WBC RBC Hgb Hct MCV MCH RDW Plt Count Lymph % (Auto) [place] # Seg Neutrophils % Seg Neuts % (Manual) Lymphocytes % (Manual) Monocytes % (Manual) Seg Neutrophils # Seg Neutrophils # Man Lymphocytes # (Manual) Monocytes # (Manual) Fibrinogen dRVVT Confirm Interp Factor V Activity POC ABG pH POC ABG pCO2 POC ABG pO2 Sodium 136 L Potassium Chloride Carbon Dioxide 18 L BUN 121 H Creatinine 2.8 H Glucose 214 H POC Glucose 239 H 181 H Calcium Phosphorus Magnesium C-Reactive Protein Total Protein Albumin Triglycerides HDL Cholesterol Urine WBC (Auto) Urine Creatinine Urine Total Protein Rheumatoid Factor Complement C4 Crossmatch 09/14/16 09/14/16 09/15/16 18:12 23:37 05:00 WBC 26.1 H RBC 3.05 L Hgb 7.2 L Hct 22.9 L MCV 75 L MCH 24 L RDW 19.0 H Plt Count Lymph % (Auto) [place] # Seg Neutrophils % Seg Neuts % (Manual) Lymphocytes % (Manual) Monocytes % (Manual) Seg Neutrophils # Seg Neutrophils # Man Lymphocytes # (Manual) Monocytes # (Manual) Fibrinogen dRVVT Confirm Interp Factor V Activity POC ABG pH POC ABG pCO2 POC ABG pO2 Sodium Potassium Chloride Carbon Dioxide BUN Creatinine Glucose POC Glucose 266 H 154 H Calcium Phosphorus Magnesium C-Reactive Protein Total Protein Albumin Triglycerides HDL Cholesterol Urine WBC (Auto) Urine Creatinine Urine Total Protein Rheumatoid Factor Complement C4 Crossmatch 09/15/16 09/15/16 09/15/16 05:00 05:17 12:45 WBC RBC Hgb Hct MCV MCH RDW Plt Count Lymph % (Auto) [place] # Seg Neutrophils % Seg Neuts % (Manual) Lymphocytes % (Manual) Monocytes % (Manual) Seg Neutrophils # Seg Neutrophils # Man Lymphocytes # (Manual) Monocytes # (Manual) Fibrinogen dRVVT Confirm Interp Factor V Activity POC ABG pH POC ABG pCO2 POC ABG pO2 Sodium Potassium 5.2 H Chloride Carbon Dioxide 18 L BUN 139 H Creatinine 3.7 H Glucose 227 H POC Glucose 226 H 244 H Calcium 8.3 L Phosphorus Magnesium C-Reactive Protein Total Protein Albumin Triglycerides HDL Cholesterol Urine WBC (Auto) Urine Creatinine Urine Total Protein Rheumatoid Factor Complement C4 Crossmatch 09/15/16 09/15/16 09/15/16 14:32 17:33 23:35 WBC RBC Hgb Hct MCV MCH RDW Plt Count Lymph % (Auto) [place] # Seg Neutrophils % Seg Neuts % (Manual) Lymphocytes % (Manual) Monocytes % (Manual) Seg Neutrophils # Seg Neutrophils # Man Lymphocytes # (Manual) Monocytes # (Manual) Fibrinogen dRVVT Confirm Interp Factor V Activity POC ABG pH POC ABG pCO2 27.7 L POC ABG pO2 120 H Sodium Potassium Chloride Carbon Dioxide BUN Creatinine Glucose POC Glucose 232 H 167 H Calcium Phosphorus Magnesium C-Reactive Protein Total Protein Albumin Triglycerides HDL Cholesterol Urine WBC (Auto) Urine Creatinine Urine Total Protein Rheumatoid Factor Complement C4 Crossmatch 09/16/16 09/16/16 09/16/16 03:58 10:27 10:27 WBC 19.0 H RBC 2.77 L Hgb 6.5 L Hct 20.9 L MCV 76 L MCH 23 L RDW 19.3 H Plt Count Lymph % (Auto) 11.0 L [place] # 1.1 H Seg Neutrophils % 82.5 H Seg Neuts % (Manual) Lymphocytes % (Manual) Monocytes % (Manual) Seg Neutrophils # 15.7 H Seg Neutrophils # Man Lymphocytes # (Manual) Monocytes # (Manual) Fibrinogen dRVVT Confirm Interp Factor V Activity POC ABG pH POC ABG pCO2 POC ABG pO2 Sodium Potassium Chloride 109.3 H Carbon Dioxide 18 L BUN 139 H Creatinine 4.1 H Glucose 144 H POC Glucose 146 H Calcium 8.1 L Phosphorus Magnesium C-Reactive Protein Total Protein Albumin Triglycerides HDL Cholesterol Urine WBC (Auto) Urine Creatinine Urine Total Protein Rheumatoid Factor Complement C4 Crossmatch 09/16/16 09/16/16 09/16/16 12:04 12:10 13:55 WBC RBC Hgb Hct MCV MCH RDW Plt Count Lymph % (Auto) [place] # Seg Neutrophils % Seg Neuts % (Manual) Lymphocytes % (Manual) Monocytes % (Manual) Seg Neutrophils # Seg Neutrophils # Man Lymphocytes # (Manual) Monocytes # (Manual) Fibrinogen dRVVT Confirm Interp Factor V Activity POC ABG pH POC ABG pCO2 32.9 L POC ABG pO2 Sodium Potassium Chloride Carbon Dioxide BUN Creatinine Glucose POC Glucose 185 H Calcium Phosphorus Magnesium C-Reactive Protein Total Protein Albumin Triglycerides HDL Cholesterol Urine WBC (Auto) Urine Creatinine Urine Total Protein Rheumatoid Factor Complement C4 Crossmatch See Detail 09/16/16 09/16/16 09/16/16 17:55 19:19 23:48 WBC RBC Hgb Hct MCV MCH RDW Plt Count Lymph % (Auto) [place] # Seg Neutrophils % Seg Neuts % (Manual) Lymphocytes % (Manual) Monocytes % (Manual) Seg Neutrophils # Seg Neutrophils # Man Lymphocytes # (Manual) Monocytes # (Manual) Fibrinogen dRVVT Confirm Interp Factor V Activity POC ABG pH POC ABG pCO2 POC ABG pO2 Sodium Potassium Chloride Carbon Dioxide BUN Creatinine Glucose POC Glucose 222 H 107 H Calcium Phosphorus Magnesium C-Reactive Protein Total Protein Albumin Triglycerides HDL Cholesterol Urine WBC (Auto) Urine Creatinine 47.4 H Urine Total Protein 16 H Rheumatoid Factor Complement C4 Crossmatch 09/17/16 09/17/16 09/17/16 03:45 03:45 04:55 WBC 19.6 H RBC 3.41 L Hgb 8.5 L Hct 26.7 L MCV 78 L MCH 25 L RDW 19.9 H Plt Count Lymph % (Auto) 9.3 L [place] # 1.2 H Seg Neutrophils % 83.9 H Seg Neuts % (Manual) Lymphocytes % (Manual) Monocytes % (Manual) Seg Neutrophils # 16.4 H Seg Neutrophils # Man Lymphocytes # (Manual) Monocytes # (Manual) Fibrinogen dRVVT Confirm Interp Factor V Activity POC ABG pH POC ABG pCO2 POC ABG pO2 Sodium 146 H Potassium 5.1 H Chloride 110.9 H Carbon Dioxide 16 L BUN 146 H Creatinine 4.0 H Glucose 108 H POC Glucose 133 H Calcium Phosphorus Magnesium 3.00 H C-Reactive Protein Total Protein Albumin Triglycerides HDL Cholesterol Urine WBC (Auto) Urine Creatinine Urine Total Protein Rheumatoid Factor Complement C4 Crossmatch 09/17/16 11:15 WBC RBC Hgb Hct MCV MCH RDW Plt Count Lymph % (Auto) [place] # Seg Neutrophils % Seg Neuts % (Manual) Lymphocytes % (Manual) Monocytes % (Manual) Seg Neutrophils # Seg Neutrophils # Man Lymphocytes # (Manual) Monocytes # (Manual) Fibrinogen dRVVT Confirm Interp Factor V Activity POC ABG pH POC ABG pCO2 POC ABG pO2 Sodium Potassium Chloride Carbon Dioxide BUN Creatinine Glucose POC Glucose 176 H Calcium Phosphorus Magnesium C-Reactive Protein Total Protein Albumin Triglycerides HDL Cholesterol Urine WBC (Auto) Urine Creatinine Urine Total Protein Rheumatoid Factor Complement C4 Crossmatch Allied health notes reviewed: RT
[2016-09-17] MEDS: NORMODYNE IV PRN (16:01)
--- NOTE | 2016-09-17 20:14 | Progress Note ---
Assessment and Plan Assessment and Plan Assessment and plan: --Anemia hemoglobin 6.4 Heme-positive stool ,GI evaluation, transfuse 2 units of PRBC Closely monitor H&H. 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/encephalopathy Aspirin/statin/supportive care --Acute hypoxic respiratory failure on mechanical ventilation > 96 hours Vent dependent, unable to wean, Possible trach and PEG if unable to wean --Aspiration pneumonia Continue current antibiotics , cultures negative to date --Acute exacerbation of COPD; Nebulizers tapering dose of steroids antibiotics and ventilatory support, pulmonary following --Hypertensive emergency off Cardene drip Her blood pressures are reasonable level, --Acute on chronic kidney disease stage III Gentle hydration closely monitor renal function and avoid nephrotoxic medications Nephrology following --leukocytosis; Trending down , C. difficile negative --2 diabetes mellitus; Accu-Chek sliding scale coverage and ADA diet and insulin as needed --Moderate to severe protein calorie malnutrition with albumin of 2.2 Nutritional supplements, tube feeding, supportive care --DVT prophylaxis with heparin --Full CODE STATUS Consults and recommendations noted and appreciated Closely monitor the patient and adjust the management as needed Plan of care discussed with the patient's nurse Critical Care time 31 minutes Subjective Date of service: 09/17/16 Principal diagnosis: Acute Respiratory Failure on MVS; Acute CVA; Acute Encephalopathy Objective - Constitutional Vitals: Vital Signs - 12hr 09/17/16 09/17/16 09/17/16 08:30 09:00 09:30 Temperature Pulse Rate 110 H 117 H 116 H Pulse Rate [ From Monitor] Pulse Rate [ Right Radial] Respiratory 15 22 14 Rate Blood Pressure 195/81 213/107 156/75 O2 Sat by Pulse 100 100 100 Oximetry 09/17/16 09/17/16 09/17/16 10:00 10:30 11:00 Temperature Pulse Rate 125 H 129 H 130 H Pulse Rate [ From Monitor] Pulse Rate [ 125 H Right Radial] Respiratory 20 16 17 Rate Blood Pressure 127/68 135/66 125/59 O2 Sat by Pulse 99 94 94 Oximetry 09/17/16 09/17/16 09/17/16 11:12 11:30 11:43 Temperature 98.4 F Pulse Rate 127 H 119 H Pulse Rate [ From Monitor] Pulse Rate [ Right Radial] Respiratory 15 Rate Blood Pressure 125/59 117/63 O2 Sat by Pulse 96 Oximetry 09/17/16 09/17/16 09/17/16 12:00 12:30 13:00 Temperature Pulse Rate 107 H 103 H 100 H Pulse Rate [ From Monitor] Pulse Rate [ Right Radial] Respiratory 16 16 16 Rate Blood Pressure 107/62 133/63 132/72 O2 Sat by Pulse 97 98 97 Oximetry 09/17/16 09/17/16 09/17/16 13:30 13:44 14:00 Temperature Pulse Rate 106 H 99 H 97 H Pulse Rate [ 96 H From Monitor] Pulse Rate [ Right Radial] Respiratory 18 15 Rate Blood Pressure 148/76 148/76 156/78 O2 Sat by Pulse 96 100 100 Oximetry 09/17/16 09/17/16 09/17/16 14:30 15:00 15:30 Temperature Pulse Rate 97 H 101 H 107 H Pulse Rate [ From Monitor] Pulse Rate [ Right Radial] Respiratory 14 14 14 Rate Blood Pressure 154/74 162/67 174/89 O2 Sat by Pulse 100 Oximetry 09/17/16 09/17/16 09/17/16 15:49 16:00 16:01 Temperature 98.5 F Pulse Rate 101 H 102 H Pulse Rate [ From Monitor] Pulse Rate [ Right Radial] Respiratory 14 Rate Blood Pressure 152/81 174/89 O2 Sat by Pulse 98 Oximetry 09/17/16 09/17/16 09/17/16 16:30 16:50 17:00 Temperature Pulse Rate 99 H 99 H 97 H Pulse Rate [ From Monitor] Pulse Rate [ Right Radial] Respiratory 15 13 Rate Blood Pressure 143/79 127/66 127/66 O2 Sat by Pulse 99 100 99 Oximetry 09/17/16 09/17/16 09/17/16 17:27 17:30 18:00 Temperature Pulse Rate 99 H 98 H 89 Pulse Rate [ From Monitor] Pulse Rate [ Right Radial] Respiratory 13 14 Rate Blood Pressure 127/66 159/78 140/73 O2 Sat by Pulse 100 100 Oximetry 09/17/16 19:32 Temperature Pulse Rate 88 Pulse Rate [ From Monitor] Pulse Rate [ Right Radial] Respiratory 19 Rate Blood Pressure 142/73 O2 Sat by Pulse 100 Oximetry - Labs CBC & Chem 7: 09/17/16 03:45 09/17/16 03:45 Labs: Abnormal lab results 09/16/16 09/16/16 09/16/16 Range/Units 12:10 13:55 17:55 WBC (4.5-11.0) K/mm3 RBC (3.65-5.03) M/mm3 Hgb (10.1-14.3) gm/dl Hct (30.3-42.9) % MCV (79-97) fl MCH (28-32) pg RDW (13.2-15.2) % Lymph % (Auto) (13.4-35.0) % [place] # (0.0-0.8) K/mm3 Seg Neutrophils % (40.0-70.0) % Seg Neutrophils # (1.8-7.7) K/mm3 Sodium (137-145) mmol/L Potassium (3.6-5.0) mmol/L Chloride (98-107) mmol/L Carbon Dioxide (22-30) mmol/L BUN (7-17) mg/dL Creatinine (0.7-1.2) mg/dL Glucose (65-100) mg/dL POC Glucose 185 H 222 H (70-105) Magnesium (1.7-2.3) mg/dL Urine Creatinine (0.1-20.0) mg/dL Urine Total Protein (5-11.8) mg/dL Crossmatch See Detail 09/16/16 09/16/16 09/17/16 Range/Units 19:19 23:48 03:45 WBC 19.6 H (4.5-11.0) K/mm3 RBC 3.41 L (3.65-5.03) M/mm3 Hgb 8.5 L (10.1-14.3) gm/dl Hct 26.7 L (30.3-42.9) % MCV 78 L (79-97) fl MCH 25 L (28-32) pg RDW 19.9 H (13.2-15.2) % Lymph % (Auto) 9.3 L (13.4-35.0) % [place] # 1.2 H (0.0-0.8) K/mm3 Seg Neutrophils % 83.9 H (40.0-70.0) % Seg Neutrophils # 16.4 H (1.8-7.7) K/mm3 Sodium (137-145) mmol/L Potassium (3.6-5.0) mmol/L Chloride (98-107) mmol/L Carbon Dioxide (22-30) mmol/L BUN (7-17) mg/dL Creatinine (0.7-1.2) mg/dL Glucose (65-100) mg/dL POC Glucose 107 H (70-105) Magnesium (1.7-2.3) mg/dL Urine Creatinine 47.4 H (0.1-20.0) mg/dL Urine Total Protein 16 H (5-11.8) mg/dL Crossmatch 09/17/16 09/17/16 09/17/16 Range/Units 03:45 04:55 11:15 WBC (4.5-11.0) K/mm3 RBC (3.65-5.03) M/mm3 Hgb (10.1-14.3) gm/dl Hct (30.3-42.9) % MCV (79-97) fl MCH (28-32) pg RDW (13.2-15.2) % Lymph % (Auto) (13.4-35.0) % [place] # (0.0-0.8) K/mm3 Seg Neutrophils % (40.0-70.0) % Seg Neutrophils # (1.8-7.7) K/mm3 Sodium 146 H (137-145) mmol/L Potassium 5.1 H (3.6-5.0) mmol/L Chloride 110.9 H (98-107) mmol/L Carbon Dioxide 16 L (22-30) mmol/L BUN 146 H (7-17) mg/dL Creatinine 4.0 H (0.7-1.2) mg/dL Glucose 108 H (65-100) mg/dL POC Glucose 133 H 176 H (70-105) Magnesium 3.00 H (1.7-2.3) mg/dL Urine Creatinine (0.1-20.0) mg/dL Urine Total Protein (5-11.8) mg/dL Crossmatch 09/17/16 Range/Units 17:33 WBC (4.5-11.0) K/mm3 RBC (3.65-5.03) M/mm3 Hgb (10.1-14.3) gm/dl Hct (30.3-42.9) % MCV (79-97) fl MCH (28-32) pg RDW (13.2-15.2) % Lymph % (Auto) (13.4-35.0) % [place] # (0.0-0.8) K/mm3 Seg Neutrophils % (40.0-70.0) % Seg Neutrophils # (1.8-7.7) K/mm3 Sodium (137-145) mmol/L Potassium (3.6-5.0) mmol/L Chloride (98-107) mmol/L Carbon Dioxide (22-30) mmol/L BUN (7-17) mg/dL Creatinine (0.7-1.2) mg/dL Glucose (65-100) mg/dL POC Glucose 246 H (70-105) Magnesium (1.7-2.3) mg/dL Urine Creatinine (0.1-20.0) mg/dL Urine Total Protein (5-11.8) mg/dL Crossmatch
[2016-09-17] MEDS: ATIVAN IV PRN (22:21)
[2016-09-17] MEDS: SODIUM BICARBONATE PO SCH (22:21)
[2016-09-18] MEDS: DIPRIVAN 10 MG/ML 1,000 MG/100 ML BOTTLE IV SCH ×2 (04:29→12:21)
[2016-09-18] MEDS: HEPARIN SUB-Q SCH ×3 (05:25→22:35)
[2016-09-18] MEDS: FLAGYL 500 MG/100 ML 500 MG/100 ML BAG IV SCH ×3 (05:25→22:33)
[2016-09-18] MEDS: VANCOMYCIN PO FEEDTUBE SCH ×4 (05:26→17:29)
[2016-09-18] MEDS: LOPRESSOR PO SCH ×4 (05:37→17:27)
[2016-09-18] MEDS: HumuLIN R SUB-Q SCH ×4 (05:38→18:03)
[2016-09-18] MEDS: fentaNYL DRIP Premix 2,000 MCG/100 ML BAG IV SCH ×3 (07:15→22:37)
[2016-09-18] MEDS: SODIUM BICARBONATE PO SCH ×3 (07:16→20:20)
[2016-09-18 08:51] LABS: Red Blood Count 3.17 M/mm3 (3.65-5.03)
[2016-09-18 08:52] LABS: Hematocrit 25.7 % (30.3-42.9); Mean Corpuscular HGB Conc 35 % (30-34); Mean Corpuscular Hemoglobin 28 pg (28-32); Mean Corpuscular Volume 81 fl (79-97); Platelet Count 160 K/mm3 (140-440)
[2016-09-18 08:59] LABS: Red Cell Distribution Width 20.4 % (13.2-15.2)
[2016-09-18 09:11] LABS: Calcium 8.1 mg/dL (8.4-10.2)
[2016-09-18] MEDS: LONITEN PO SCH (09:22)
[2016-09-18] MEDS: DELTASONE PO SCH (09:22)
[2016-09-18] MEDS: LEVEMIR (NF) SUB-Q SCH (09:22)
[2016-09-18] MEDS: PROTONIX PO SCH ×2 (09:22→22:35)
[2016-09-18 09:25] LABS: BUN/Creatinine Ratio 32.63
--- NOTE | 2016-09-18 14:12 | Progress Note ---
Assessment and Plan - Patient Problems (1) Acute respiratory failure with hypoxia Current Visit: Yes Status: Acute Plan to address problem: - continue aspiration precautions / address VAP bundles - continue to wean oxygen for MAP > 94% - continue bronchodilators and pulmonary toilet - will continue to taper systemic steroids (no active needs pulmonary-[place]) - completed empiric levaquin dosing - consult placed for trach and PEG placement - continue daytime PSV trials as tolerated while awaiting trach and PEG (2) Acute CVA (cerebrovascular accident) Current Visit: Yes Status: Acute Plan to address problem: - out of tpA window (initially stopped due to uncontrolled HTN) - Left MCA teritory stroke with some midline shift on last CT - seen by neurology and prognosis for recovery of mental status guarded to poor - optimizing secondary prevention modalities now (BP, lipid anti-platelet therapy) - will continue steroid taper (reduced to 20mg daily prednisone) (3) Hypertensive emergency Current Visit: Yes Status: Acute Plan to address problem: - resolved - continue clonidine patch at 0.3mg qweek - continue prn IV rescue labetalol - add metoprolol re: tachycardia also - started on minoxidil by nephrology - BP's better controlled overall (4) Obesity (BMI 35.0-39.9 without comorbidity) Current Visit: Yes Status: Chronic Plan to address problem: - adjust tube feeds per chip drier's recommendations - supportive and preventive skin care re: breakdown - to resume tube feeds today - will begin reglan re: high residuals (5) Type 2 diabetes mellitus Current Visit: Yes Status: Chronic Qualifiers: Diabetes mellitus complication status: D Diabetes mellitus complication detail: D Diabetic retinopathy severity: D Proliferative retinopathy type: P Diabetes mellitus macular edema: D Diabetes mellitus detention insulin use : D Laterality: L Chronic kidney disease stage: C Plan to address problem: - continue SSI - continue lantus at 8 units sq q24h (6) Leukocytosis (leucocytosis) Current Visit: Yes Status: Acute Qualifiers: Leukocytosis type: leukemoid reaction Qualified Code(s): D72.823 - Leukemoid reaction Plan to address problem: - afebrile - ? leukemoid reaction - ? steroid leucocytosis - continue empiric levaquin - get CRP & lactate and trend - tapering systemic steroids - follow clinically - C-diff infection assay negative - ID consulted and on flagyl - WBC trending down (18K) - cultures NGTD (7) Discharge planning issues Current Visit: Yes Status: Acute Plan to address problem: - she remains critically ill on life sustaining interventions including MVS and at risk for further acute deterioration including .....awaiting trach and PEG ....LTAC thereafter ......35' CCT Subjective Date of service: 09/18/16 Principal diagnosis: Acute Respiratory Failure on MVS; Acute CVA; Acute Encephalopathy Interval history: Seen and examined at bedside; 24 hour events reviewed; nursing and respiratory care staff consulted; no adverse overnight events reported to me; remains on MVS ; still with AMS; no emesis or overt aspiration; not yet started on PSV trials; no gross GI or other bleeding; to resume tube feeds Objective Vital Signs - 12hr 09/18/16 09/18/16 09/18/16 02:30 03:00 03:07 Temperature Pulse Rate 104 H 103 H 106 H Pulse Rate [ From Monitor] Respiratory 14 17 Rate Blood Pressure 178/87 165/86 161/89 O2 Sat by Pulse 100 100 Oximetry 09/18/16 09/18/16 09/18/16 03:30 04:00 04:30 Temperature 98.7 F Pulse Rate 107 H 106 H 112 H Pulse Rate [ 99 H From Monitor] Respiratory 20 18 15 Rate Blood Pressure 188/91 184/93 202/88 O2 Sat by Pulse 100 100 Oximetry 09/18/16 09/18/16 09/18/16 04:59 05:00 05:30 Temperature Pulse Rate 118 H 110 H Pulse Rate [ From Monitor] Respiratory 14 19 14 Rate Blood Pressure 134/111 116/70 O2 Sat by Pulse 98 100 Oximetry 09/18/16 09/18/16 09/18/16 05:37 06:00 06:30 Temperature Pulse Rate 105 H 97 H 94 H Pulse Rate [ From Monitor] Respiratory 14 14 Rate Blood Pressure 140/76 135/75 143/72 O2 Sat by Pulse 100 100 Oximetry 09/18/16 09/18/16 09/18/16 07:00 07:30 07:44 Temperature 98.5 F Pulse Rate 95 H 95 H Pulse Rate [ From Monitor] Respiratory 14 20 Rate Blood Pressure 141/73 195/99 O2 Sat by Pulse 100 100 Oximetry 09/18/16 09/18/16 09/18/16 07:58 08:00 08:30 Temperature Pulse Rate 91 H 93 H Pulse Rate [ 92 H From Monitor] Respiratory 14 18 Rate Blood Pressure 128/86 174/79 O2 Sat by Pulse 100 100 100 Oximetry 09/18/16 09/18/16 09/18/16 09:00 09:30 09:45 Temperature Pulse Rate 92 H 96 H 90 Pulse Rate [ From Monitor] Respiratory 14 19 Rate Blood Pressure 167/82 170/88 O2 Sat by Pulse 100 100 Oximetry 09/18/16 09/18/16 09/18/16 10:00 10:30 11:00 Temperature Pulse Rate 105 H 109 H 108 H Pulse Rate [ From Monitor] Respiratory 14 14 14 Rate Blood Pressure 126/67 109/61 113/60 O2 Sat by Pulse 100 100 100 Oximetry 09/18/16 09/18/16 09/18/16 11:30 11:35 12:00 Temperature 97.5 F L Pulse Rate 107 H 108 H 107 H Pulse Rate [ From Monitor] Respiratory 14 14 Rate Blood Pressure 114/61 110/60 125/63 O2 Sat by Pulse 100 100 100 Oximetry 09/18/16 09/18/16 09/18/16 12:26 12:30 13:00 Temperature Pulse Rate 103 H 97 H 101 H Pulse Rate [ From Monitor] Respiratory 14 14 Rate Blood Pressure 105/57 106/57 106/61 O2 Sat by Pulse 86 100 Oximetry 09/18/16 13:30 Temperature Pulse Rate 102 H Pulse Rate [ From Monitor] Respiratory 11 L Rate Blood Pressure 106/70 O2 Sat by Pulse 100 Oximetry Constitutional: no acute distress, agitated, other (encephalopathic) Eyes: non-icteric ENT: oropharynx moist Neck: supple, no lymphadenopathy Effort: normal Ascultation: Bilateral: clear, diminished breath sounds Cardiovascular: regular rate and rhythm Gastrointestinal: normoactive bowel sounds, soft, non-tender, non-distended Integumentary: normal Extremities: no cyanosis, no edema, pulses normal, no ischemia or petechiae Neurologic: pupils equal and round, other (sedated) Psychiatric: other (unable to assess) CBC and BMP: 09/18/16 08:31 09/18/16 08:31 ABG, PT/INR, D-dimer: ABG POC ABG pH 7.350 (7.35-7.45) 09/16/16 12:04 POC ABG pCO2 32.9 (35-45) L 09/16/16 12:04 POC ABG pO2 90 (80-105) 09/16/16 12:04 POC ABG HCO3 18.2 09/16/16 12:04 POC ABG Total CO2 19 09/16/16 12:04 POC ABG O2 Sat 97 09/16/16 12:04 PT/INR, D-dimer PT 13.8 Sec. (12.2-14.9) 09/15/16 05:00 INR 1.01 (0.87-1.13) 09/15/16 05:00 Abnormal lab findings: Abnormal Labs 09/03/16 09/03/16 09/03/16 12:12 15:07 16:20 WBC RBC Hgb Hct MCV MCH MCHC RDW Plt Count Lymph % (Auto) Scurry # Seg Neutrophils % Seg Neuts % (Manual) Lymphocytes % (Manual) Monocytes % (Manual) Seg Neutrophils # Seg Neutrophils # Man Lymphocytes # (Manual) Monocytes # (Manual) Fibrinogen dRVVT Confirm Interp Factor V Activity POC ABG pH 7.452 H POC ABG pCO2 POC ABG pO2 Sodium Potassium Chloride Carbon Dioxide BUN Creatinine Glucose POC Glucose 178 H Calcium Phosphorus 2.20 L Magnesium 1.60 L C-Reactive Protein Total Protein Albumin Triglycerides HDL Cholesterol Urine WBC (Auto) Urine Creatinine Urine Total Protein Rheumatoid Factor Complement C4 Crossmatch 09/03/16 09/03/16 09/03/16 17:57 17:58 23:50 WBC RBC Hgb Hct MCV MCH MCHC RDW Plt Count Lymph % (Auto) Scurry # Seg Neutrophils % Seg Neuts % (Manual) Lymphocytes % (Manual) Monocytes % (Manual) Seg Neutrophils # Seg Neutrophils # Man Lymphocytes # (Manual) Monocytes # (Manual) Fibrinogen dRVVT Confirm Interp Factor V Activity POC ABG pH POC ABG pCO2 POC ABG pO2 Sodium Potassium Chloride Carbon Dioxide BUN Creatinine Glucose POC Glucose 162 H 145 H Calcium Phosphorus 2.30 L Magnesium C-Reactive Protein Total Protein Albumin Triglycerides HDL Cholesterol Urine WBC (Auto) Urine Creatinine Urine Total Protein Rheumatoid Factor Complement C4 Crossmatch 09/04/16 09/04/16 09/04/16 03:31 03:31 05:42 WBC RBC Hgb 9.7 L D Hct MCV 72 L MCH 23 L MCHC RDW 17.5 H Plt Count Lymph % (Auto) 11.1 L Scurry # Seg Neutrophils % 84.3 H Seg Neuts % (Manual) Lymphocytes % (Manual) Monocytes % (Manual) Seg Neutrophils # 8.9 H Seg Neutrophils # Man Lymphocytes # (Manual) Monocytes # (Manual) Fibrinogen dRVVT Confirm Interp Factor V Activity POC ABG pH POC ABG pCO2 POC ABG pO2 Sodium 135 L Potassium 2.9 L* Chloride 97.2 L Carbon Dioxide 19 L BUN Creatinine 1.7 H Glucose 170 H POC Glucose 152 H Calcium Phosphorus Magnesium C-Reactive Protein Total Protein Albumin Triglycerides 160 H HDL Cholesterol 31 L Urine WBC (Auto) Urine Creatinine Urine Total Protein Rheumatoid Factor Complement C4 Crossmatch 09/04/16 09/04/16 09/04/16 11:34 17:46 23:29 WBC RBC Hgb Hct MCV MCH MCHC RDW Plt Count Lymph % (Auto) Scurry # Seg Neutrophils % Seg Neuts % (Manual) Lymphocytes % (Manual) Monocytes % (Manual) Seg Neutrophils # Seg Neutrophils # Man Lymphocytes # (Manual) Monocytes # (Manual) Fibrinogen dRVVT Confirm Interp Factor V Activity POC ABG pH POC ABG pCO2 POC ABG pO2 Sodium Potassium Chloride Carbon Dioxide BUN Creatinine Glucose POC Glucose 165 H 210 H 139 H Calcium Phosphorus Magnesium C-Reactive Protein Total Protein Albumin Triglycerides HDL Cholesterol Urine WBC (Auto) Urine Creatinine Urine Total Protein Rheumatoid Factor Complement C4 Crossmatch 09/05/16 09/05/16 09/05/16 04:05 04:05 05:38 WBC RBC Hgb Hct MCV 76 L D MCH 23 L MCHC RDW 17.8 H Plt Count Lymph % (Auto) Scurry # Seg Neutrophils % Seg Neuts % (Manual) Lymphocytes % (Manual) Monocytes % (Manual) Seg Neutrophils # Seg Neutrophils # Man Lymphocytes # (Manual) Monocytes # (Manual) Fibrinogen dRVVT Confirm Interp Factor V Activity POC ABG pH POC ABG pCO2 POC ABG pO2 Sodium 134 L Potassium Chloride Carbon Dioxide 18 L BUN Creatinine 1.8 H Glucose 192 H POC Glucose 175 H Calcium Phosphorus Magnesium C-Reactive Protein Total Protein Albumin Triglycerides HDL Cholesterol Urine WBC (Auto) Urine Creatinine Urine Total Protein Rheumatoid Factor Complement C4 Crossmatch 09/05/16 09/05/16 09/05/16 11:38 17:48 23:22 WBC RBC Hgb Hct MCV MCH MCHC RDW Plt Count Lymph % (Auto) Scurry # Seg Neutrophils % Seg Neuts % (Manual) Lymphocytes % (Manual) Monocytes % (Manual) Seg Neutrophils # Seg Neutrophils # Man Lymphocytes # (Manual) Monocytes # (Manual) Fibrinogen dRVVT Confirm Interp Factor V Activity POC ABG pH POC ABG pCO2 POC ABG pO2 Sodium Potassium Chloride Carbon Dioxide BUN Creatinine Glucose POC Glucose 164 H 186 H 195 H Calcium Phosphorus Magnesium C-Reactive Protein Total Protein Albumin Triglycerides HDL Cholesterol Urine WBC (Auto) Urine Creatinine Urine Total Protein Rheumatoid Factor Complement C4 Crossmatch 09/06/16 09/06/16 09/06/16 04:12 05:59 07:32 WBC RBC Hgb Hct MCV MCH MCHC RDW Plt Count Lymph % (Auto) Scurry # Seg Neutrophils % Seg Neuts % (Manual) Lymphocytes % (Manual) Monocytes % (Manual) Seg Neutrophils # Seg Neutrophils # Man Lymphocytes # (Manual) Monocytes # (Manual) Fibrinogen dRVVT Confirm Interp Factor V Activity POC ABG pH 7.514 H POC ABG pCO2 29.1 L POC ABG pO2 72 L Sodium 133 L Potassium 3.4 L Chloride 94.9 L Carbon Dioxide 19 L BUN 30 H Creatinine 2.1 H Glucose 139 H POC Glucose 146 H Calcium Phosphorus Magnesium C-Reactive Protein Total Protein Albumin Triglycerides HDL Cholesterol Urine WBC (Auto) Urine Creatinine Urine Total Protein Rheumatoid Factor Complement C4 Crossmatch 09/06/16 09/06/16 09/06/16 11:57 17:58 19:02 WBC RBC Hgb Hct MCV MCH MCHC RDW Plt Count Lymph % (Auto) Scurry # Seg Neutrophils % Seg Neuts % (Manual) Lymphocytes % (Manual) Monocytes % (Manual) Seg Neutrophils # Seg Neutrophils # Man Lymphocytes # (Manual) Monocytes # (Manual) Fibrinogen dRVVT Confirm Interp Factor V Activity POC ABG pH 7.465 H POC ABG pCO2 32.0 L POC ABG pO2 Sodium Potassium Chloride Carbon Dioxide BUN Creatinine Glucose POC Glucose 165 H 160 H Calcium Phosphorus Magnesium C-Reactive Protein Total Protein Albumin Triglycerides HDL Cholesterol Urine WBC (Auto) Urine Creatinine Urine Total Protein Rheumatoid Factor Complement C4 Crossmatch 09/06/16 09/07/16 09/07/16 23:45 02:47 02:47 WBC RBC Hgb Hct MCV MCH MCHC RDW Plt Count Lymph % (Auto) Scurry # Seg Neutrophils % Seg Neuts % (Manual) Lymphocytes % (Manual) Monocytes % (Manual) Seg Neutrophils # Seg Neutrophils # Man Lymphocytes # (Manual) Monocytes # (Manual) Fibrinogen dRVVT Confirm Interp Factor V Activity POC ABG pH POC ABG pCO2 POC ABG pO2 Sodium Potassium Chloride Carbon Dioxide BUN Creatinine Glucose POC Glucose 204 H Calcium Phosphorus Magnesium C-Reactive Protein Total Protein Albumin Triglycerides HDL Cholesterol Urine WBC (Auto) 68.0 H Urine Creatinine 106.1 H Urine Total Protein Rheumatoid Factor Complement C4 Crossmatch 09/07/16 09/07/16 09/07/16 04:50 06:19 06:39 WBC RBC Hgb Hct MCV MCH MCHC RDW Plt Count Lymph % (Auto) Scurry # Seg Neutrophils % Seg Neuts % (Manual) Lymphocytes % (Manual) Monocytes % (Manual) Seg Neutrophils # Seg Neutrophils # Man Lymphocytes # (Manual) Monocytes # (Manual) Fibrinogen dRVVT Confirm Interp Factor V Activity POC ABG pH 7.457 H POC ABG pCO2 32.1 L POC ABG pO2 76 L Sodium 132 L Potassium Chloride 94.7 L Carbon Dioxide BUN 53 H Creatinine 2.9 H Glucose 151 H POC Glucose 149 H Calcium Phosphorus Magnesium C-Reactive Protein Total Protein Albumin Triglycerides HDL Cholesterol Urine WBC (Auto) Urine Creatinine Urine Total Protein Rheumatoid Factor Complement C4 Crossmatch 09/07/16 09/07/16 09/07/16 09:20 11:43 11:43 WBC 19.4 H RBC Hgb 8.3 L Hct 26.4 L D MCV 72 L D MCH 22 L MCHC RDW 17.9 H Plt Count Lymph % (Auto) 8.5 L Scurry # 1.0 H Seg Neutrophils % 85.8 H Seg Neuts % (Manual) Lymphocytes % (Manual) Monocytes % (Manual) Seg Neutrophils # 16.6 H Seg Neutrophils # Man Lymphocytes # (Manual) Monocytes # (Manual) Fibrinogen dRVVT Confirm Interp Factor V Activity POC ABG pH POC ABG pCO2 POC ABG pO2 Sodium 134 L Potassium Chloride 97.2 L Carbon Dioxide 20 L BUN 58 H Creatinine 2.9 H Glucose 147 H POC Glucose Calcium Phosphorus 2.40 L Magnesium 2.40 H C-Reactive Protein Total Protein 5.8 L Albumin 2.2 L Triglycerides HDL Cholesterol Urine WBC (Auto) Urine Creatinine Urine Total Protein Rheumatoid Factor Complement C4 58 H Crossmatch 09/07/16 09/07/16 09/07/16 11:50 16:00 17:31 WBC RBC Hgb Hct MCV MCH MCHC RDW Plt Count Lymph % (Auto) Scurry # Seg Neutrophils % Seg Neuts % (Manual) Lymphocytes % (Manual) Monocytes % (Manual) Seg Neutrophils # Seg Neutrophils # Man Lymphocytes # (Manual) Monocytes # (Manual) Fibrinogen dRVVT Confirm Interp Factor V Activity POC ABG pH POC ABG pCO2 POC ABG pO2 158 H Sodium Potassium Chloride Carbon Dioxide BUN Creatinine Glucose POC Glucose 175 H Calcium Phosphorus Magnesium C-Reactive Protein Total Protein Albumin Triglycerides HDL Cholesterol Urine WBC (Auto) Urine Creatinine 66.3 H Urine Total Protein Rheumatoid Factor Complement C4 Crossmatch 09/07/16 09/08/16 09/08/16 23:50 05:46 06:18 WBC 17.8 H RBC 3.58 L Hgb 8.1 L Hct 25.5 L MCV 71 L MCH 23 L MCHC RDW 18.4 H Plt Count Lymph % (Auto) Scurry # Seg Neutrophils % Seg Neuts % (Manual) 92.0 H Lymphocytes % (Manual) 6.0 L Monocytes % (Manual) Seg Neutrophils # Seg Neutrophils # Man 16.4 H Lymphocytes # (Manual) 1.1 L Monocytes # (Manual) Fibrinogen dRVVT Confirm Interp Factor V Activity POC ABG pH POC ABG pCO2 34.3 L POC ABG pO2 71 L Sodium Potassium Chloride Carbon Dioxide BUN Creatinine Glucose POC Glucose 216 H Calcium Phosphorus Magnesium C-Reactive Protein Total Protein Albumin Triglycerides HDL Cholesterol Urine WBC (Auto) Urine Creatinine Urine Total Protein Rheumatoid Factor Complement C4 Crossmatch 09/08/16 09/08/16 09/08/16 06:18 06:51 10:55 WBC RBC Hgb Hct MCV MCH MCHC RDW Plt Count Lymph % (Auto) Scurry # Seg Neutrophils % Seg Neuts % (Manual) Lymphocytes % (Manual) Monocytes % (Manual) Seg Neutrophils # Seg Neutrophils # Man Lymphocytes # (Manual) Monocytes # (Manual) Fibrinogen dRVVT Confirm Interp Factor V Activity POC ABG pH POC ABG pCO2 POC ABG pO2 Sodium 133 L Potassium Chloride 96.9 L Carbon Dioxide 20 L BUN 63 H Creatinine 2.7 H Glucose 195 H POC Glucose 204 H 169 H Calcium Phosphorus Magnesium C-Reactive Protein Total Protein Albumin Triglycerides HDL Cholesterol Urine WBC (Auto) Urine Creatinine Urine Total Protein Rheumatoid Factor Complement C4 Crossmatch 09/08/16 09/08/16 09/08/16 11:48 11:48 11:48 WBC RBC Hgb Hct MCV MCH MCHC RDW Plt Count Lymph % (Auto) Scurry # Seg Neutrophils % Seg Neuts % (Manual) Lymphocytes % (Manual) Monocytes % (Manual) Seg Neutrophils # Seg Neutrophils # Man Lymphocytes # (Manual) Monocytes # (Manual) Fibrinogen 750 H dRVVT Confirm Interp Factor V Activity POC ABG pH POC ABG pCO2 POC ABG pO2 Sodium Potassium Chloride Carbon Dioxide BUN Creatinine Glucose POC Glucose Calcium Phosphorus Magnesium C-Reactive Protein 15.70 H Total Protein Albumin Triglycerides HDL Cholesterol Urine WBC (Auto) Urine Creatinine Urine Total Protein Rheumatoid Factor 24 H Complement C4 Crossmatch 09/08/16 09/08/16 09/09/16 15:35 18:25 00:24 WBC RBC Hgb Hct MCV MCH MCHC RDW Plt Count Lymph % (Auto) Scurry # Seg Neutrophils % Seg Neuts % (Manual) Lymphocytes % (Manual) Monocytes % (Manual) Seg Neutrophils # Seg Neutrophils # Man Lymphocytes # (Manual) Monocytes # (Manual) Fibrinogen dRVVT Confirm Interp Factor V Activity 182 H POC ABG pH POC ABG pCO2 POC ABG pO2 Sodium Potassium Chloride Carbon Dioxide BUN Creatinine Glucose POC Glucose 184 H 216 H Calcium Phosphorus Magnesium C-Reactive Protein Total Protein Albumin Triglycerides HDL Cholesterol Urine WBC (Auto) Urine Creatinine Urine Total Protein Rheumatoid Factor Complement C4 Crossmatch 09/09/16 09/09/16 09/09/16 03:00 03:00 04:04 WBC 27.9 H RBC Hgb 8.7 L Hct 28.1 L MCV 72 L MCH 22 L MCHC RDW 18.4 H Plt Count 485 H Lymph % (Auto) Scurry # Seg Neutrophils % Seg Neuts % (Manual) 77.0 H Lymphocytes % (Manual) 9.0 L Monocytes % (Manual) Seg Neutrophils # Seg Neutrophils # Man 21.5 H Lymphocytes # (Manual) Monocytes # (Manual) 2.0 H Fibrinogen dRVVT Confirm Interp Factor V Activity POC ABG pH POC ABG pCO2 POC ABG pO2 121 H Sodium 135 L Potassium Chloride 96.3 L Carbon Dioxide 21 L BUN 83 H Creatinine 3.0 H Glucose 135 H POC Glucose Calcium Phosphorus Magnesium C-Reactive Protein Total Protein Albumin Triglycerides HDL Cholesterol Urine WBC (Auto) Urine Creatinine Urine Total Protein Rheumatoid Factor Complement C4 Crossmatch 09/09/16 09/09/16 09/09/16 05:41 11:55 14:13 WBC RBC Hgb Hct MCV MCH MCHC RDW Plt Count Lymph % (Auto) Scurry # Seg Neutrophils % Seg Neuts % (Manual) Lymphocytes % (Manual) Monocytes % (Manual) Seg Neutrophils # Seg Neutrophils # Man Lymphocytes # (Manual) Monocytes # (Manual) Fibrinogen dRVVT Confirm Interp Factor V Activity POC ABG pH POC ABG pCO2 POC ABG pO2 Sodium Potassium Chloride Carbon Dioxide BUN Creatinine Glucose POC Glucose 155 H 186 H Calcium Phosphorus Magnesium C-Reactive Protein Total Protein Albumin Triglycerides HDL Cholesterol Urine WBC (Auto) 25.0 H Urine Creatinine Urine Total Protein Rheumatoid Factor Complement C4 Crossmatch 09/09/16 09/09/16 09/10/16 17:33 23:13 05:09 WBC RBC Hgb Hct MCV MCH MCHC RDW Plt Count Lymph % (Auto) Scurry # Seg Neutrophils % Seg Neuts % (Manual) Lymphocytes % (Manual) Monocytes % (Manual) Seg Neutrophils # Seg Neutrophils # Man Lymphocytes # (Manual) Monocytes # (Manual) Fibrinogen dRVVT Confirm Interp Factor V Activity POC ABG pH POC ABG pCO2 POC ABG pO2 74 L Sodium Potassium Chloride Carbon Dioxide BUN Creatinine Glucose POC Glucose 211 H 215 H Calcium Phosphorus Magnesium C-Reactive Protein Total Protein Albumin Triglycerides HDL Cholesterol Urine WBC (Auto) Urine Creatinine Urine Total Protein Rheumatoid Factor Complement C4 Crossmatch 09/10/16 09/10/16 09/10/16 05:17 05:17 11:31 WBC 15.8 H RBC 3.25 L Hgb 7.3 L Hct 22.9 L MCV 71 L MCH 23 L MCHC RDW 18.4 H Plt Count Lymph % (Auto) Scurry # Seg Neutrophils % Seg Neuts % (Manual) 91.0 H Lymphocytes % (Manual) 4.0 L Monocytes % (Manual) Seg Neutrophils # Seg Neutrophils # Man 14.4 H Lymphocytes # (Manual) 0.6 L Monocytes # (Manual) Fibrinogen dRVVT Confirm Interp Factor V Activity POC ABG pH POC ABG pCO2 POC ABG pO2 Sodium Potassium Chloride Carbon Dioxide 21 L BUN 93 H Creatinine 2.9 H Glucose 146 H POC Glucose 188 H Calcium 8.1 L Phosphorus Magnesium C-Reactive Protein Total Protein Albumin Triglycerides HDL Cholesterol Urine WBC (Auto) Urine Creatinine Urine Total Protein Rheumatoid Factor Complement C4 Crossmatch 09/10/16 09/10/16 09/10/16 13:17 17:20 23:32 WBC RBC Hgb Hct MCV MCH MCHC RDW Plt Count Lymph % (Auto) Scurry # Seg Neutrophils % Seg Neuts % (Manual) Lymphocytes % (Manual) Monocytes % (Manual) Seg Neutrophils # Seg Neutrophils # Man Lymphocytes # (Manual) Monocytes # (Manual) Fibrinogen dRVVT Confirm Interp Factor V Activity POC ABG pH POC ABG pCO2 POC ABG pO2 Sodium Potassium Chloride Carbon Dioxide BUN Creatinine Glucose POC Glucose 199 H 186 H Calcium Phosphorus Magnesium C-Reactive Protein Total Protein Albumin Triglycerides HDL Cholesterol Urine WBC (Auto) Urine Creatinine Urine Total Protein Rheumatoid Factor Complement C4 Crossmatch See Detail 09/11/16 09/11/16 09/11/16 05:10 05:10 05:17 WBC 28.4 H RBC Hgb 9.2 L Hct 29.3 L D MCV 73 L MCH 23 L MCHC RDW 18.9 H Plt Count 452 H Lymph % (Auto) Scurry # Seg Neutrophils % Seg Neuts % (Manual) 89.5 H Lymphocytes % (Manual) 2.0 L Monocytes % (Manual) Seg Neutrophils # Seg Neutrophils # Man 25.4 H Lymphocytes # (Manual) 0.6 L Monocytes # (Manual) 1.3 H Fibrinogen dRVVT Confirm Interp Factor V Activity POC ABG pH POC ABG pCO2 POC ABG pO2 Sodium 136 L Potassium Chloride Carbon Dioxide 18 L BUN 107 H Creatinine 2.6 H Glucose 187 H POC Glucose 230 H Calcium 8.3 L Phosphorus Magnesium C-Reactive Protein Total Protein Albumin Triglycerides HDL Cholesterol Urine WBC (Auto) Urine Creatinine Urine Total Protein Rheumatoid Factor Complement C4 Crossmatch 09/11/16 09/11/16 09/11/16 05:55 12:02 17:32 WBC RBC Hgb Hct MCV MCH MCHC RDW Plt Count Lymph % (Auto) Scurry # Seg Neutrophils % Seg Neuts % (Manual) Lymphocytes % (Manual) Monocytes % (Manual) Seg Neutrophils # Seg Neutrophils # Man Lymphocytes # (Manual) Monocytes # (Manual) Fibrinogen dRVVT Confirm Interp Factor V Activity POC ABG pH POC ABG pCO2 33.8 L POC ABG pO2 Sodium Potassium Chloride Carbon Dioxide BUN Creatinine Glucose POC Glucose 191 H 239 H Calcium Phosphorus Magnesium C-Reactive Protein Total Protein Albumin Triglycerides HDL Cholesterol Urine WBC (Auto) Urine Creatinine Urine Total Protein Rheumatoid Factor Complement C4 Crossmatch 09/11/16 09/12/16 09/12/16 23:52 05:09 05:32 WBC RBC Hgb Hct MCV MCH MCHC RDW Plt Count Lymph % (Auto) Scurry # Seg Neutrophils % Seg Neuts % (Manual) Lymphocytes % (Manual) Monocytes % (Manual) Seg Neutrophils # Seg Neutrophils # Man Lymphocytes # (Manual) Monocytes # (Manual) Fibrinogen dRVVT Confirm Interp Factor V Activity POC ABG pH POC ABG pCO2 34.6 L POC ABG pO2 Sodium Potassium Chloride Carbon Dioxide BUN Creatinine Glucose POC Glucose 265 H 184 H Calcium Phosphorus Magnesium C-Reactive Protein Total Protein Albumin Triglycerides HDL Cholesterol Urine WBC (Auto) Urine Creatinine Urine Total Protein Rheumatoid Factor Complement C4 Crossmatch 09/12/16 09/12/16 09/12/16 06:45 06:45 07:22 WBC 31.7 H RBC 3.54 L Hgb 8.3 L Hct 25.9 L MCV 73 L MCH 23 L MCHC RDW 18.9 H Plt Count Lymph % (Auto) Scurry # Seg Neutrophils % Seg Neuts % (Manual) 88.5 H Lymphocytes % (Manual) 4.5 L Monocytes % (Manual) Seg Neutrophils # Seg Neutrophils # Man 28.1 H Lymphocytes # (Manual) Monocytes # (Manual) 1.0 H Fibrinogen dRVVT Confirm Interp Factor V Activity POC ABG pH POC ABG pCO2 POC ABG pO2 Sodium Potassium Chloride Carbon Dioxide 20 L BUN 115 H Creatinine 2.7 H Glucose 165 H POC Glucose Calcium 8.0 L Phosphorus Magnesium C-Reactive Protein Total Protein Albumin Triglycerides 217 H HDL Cholesterol Urine WBC (Auto) Urine Creatinine Urine Total Protein Rheumatoid Factor Complement C4 Crossmatch 09/12/16 09/12/16 09/12/16 07:22 09:59 12:21 WBC RBC Hgb Hct MCV MCH MCHC RDW Plt Count Lymph % (Auto) Scurry # Seg Neutrophils % Seg Neuts % (Manual) Lymphocytes % (Manual) Monocytes % (Manual) Seg Neutrophils # Seg Neutrophils # Man Lymphocytes # (Manual) Monocytes # (Manual) Fibrinogen dRVVT Confirm Interp Positive H Factor V Activity POC ABG pH POC ABG pCO2 POC ABG pO2 Sodium Potassium Chloride Carbon Dioxide BUN Creatinine Glucose POC Glucose 224 H Calcium Phosphorus Magnesium C-Reactive Protein 1.70 H Total Protein Albumin Triglycerides HDL Cholesterol Urine WBC (Auto) Urine Creatinine Urine Total Protein Rheumatoid Factor Complement C4 Crossmatch 09/12/16 09/12/16 09/13/16 16:51 23:28 04:00 WBC 45.0 H* RBC Hgb 9.4 L Hct MCV 75 L MCH 23 L MCHC RDW 19.0 H Plt Count 470 H Lymph % (Auto) Scurry # Seg Neutrophils % Seg Neuts % (Manual) 89.0 H Lymphocytes % (Manual) 5.0 L Monocytes % (Manual) Seg Neutrophils # Seg Neutrophils # Man 40.1 H Lymphocytes # (Manual) Monocytes # (Manual) Fibrinogen dRVVT Confirm Interp Factor V Activity POC ABG pH POC ABG pCO2 POC ABG pO2 Sodium Potassium Chloride Carbon Dioxide BUN Creatinine Glucose POC Glucose 169 H 150 H Calcium Phosphorus Magnesium C-Reactive Protein Total Protein Albumin Triglycerides HDL Cholesterol Urine WBC (Auto) Urine Creatinine Urine Total Protein Rheumatoid Factor Complement C4 Crossmatch 09/13/16 09/13/16 09/13/16 04:00 11:26 17:31 WBC RBC Hgb Hct MCV MCH MCHC RDW Plt Count Lymph % (Auto) [place] # Seg Neutrophils % Seg Neuts % (Manual) Lymphocytes % (Manual) Monocytes % (Manual) Seg Neutrophils # Seg Neutrophils # Man Lymphocytes # (Manual) Monocytes # (Manual) Fibrinogen dRVVT Confirm Interp Factor V Activity POC ABG pH POC ABG pCO2 POC ABG pO2 Sodium Potassium Chloride Carbon Dioxide 20 L BUN 116 H Creatinine 3.0 H Glucose 172 H POC Glucose 140 H 183 H Calcium Phosphorus Magnesium C-Reactive Protein Total Protein 6.2 L Albumin 2.9 L Triglycerides HDL Cholesterol Urine WBC (Auto) Urine Creatinine Urine Total Protein Rheumatoid Factor Complement C4 Crossmatch 09/13/16 09/14/16 09/14/16 23:23 04:06 04:07 WBC 29.4 H RBC Hgb 8.9 L Hct 27.3 L MCV 75 L MCH 24 L MCHC RDW 19.1 H Plt Count Lymph % (Auto) [place] # Seg Neutrophils % Seg Neuts % (Manual) 84.0 H Lymphocytes % (Manual) 6.0 L Monocytes % (Manual) 9.0 H Seg Neutrophils # Seg Neutrophils # Man 24.7 H Lymphocytes # (Manual) Monocytes # (Manual) 2.6 H Fibrinogen dRVVT Confirm Interp Factor V Activity POC ABG pH 7.342 L POC ABG pCO2 POC ABG pO2 116 H Sodium Potassium Chloride Carbon Dioxide BUN Creatinine Glucose POC Glucose 154 H Calcium Phosphorus Magnesium C-Reactive Protein Total Protein Albumin Triglycerides HDL Cholesterol Urine WBC (Auto) Urine Creatinine Urine Total Protein Rheumatoid Factor Complement C4 Crossmatch 09/14/16 09/14/16 09/14/16 04:07 05:29 12:19 WBC RBC Hgb Hct MCV MCH MCHC RDW Plt Count Lymph % (Auto) [place] # Seg Neutrophils % Seg Neuts % (Manual) Lymphocytes % (Manual) Monocytes % (Manual) Seg Neutrophils # Seg Neutrophils # Man Lymphocytes # (Manual) Monocytes # (Manual) Fibrinogen dRVVT Confirm Interp Factor V Activity POC ABG pH POC ABG pCO2 POC ABG pO2 Sodium 136 L Potassium Chloride Carbon Dioxide 18 L BUN 121 H Creatinine 2.8 H Glucose 214 H POC Glucose 239 H 181 H Calcium Phosphorus Magnesium C-Reactive Protein Total Protein Albumin Triglycerides HDL Cholesterol Urine WBC (Auto) Urine Creatinine Urine Total Protein Rheumatoid Factor Complement C4 Crossmatch 09/14/16 09/14/16 09/15/16 18:12 23:37 05:00 WBC 26.1 H RBC 3.05 L Hgb 7.2 L Hct 22.9 L MCV 75 L MCH 24 L MCHC RDW 19.0 H Plt Count Lymph % (Auto) [place] # Seg Neutrophils % Seg Neuts % (Manual) Lymphocytes % (Manual) Monocytes % (Manual) Seg Neutrophils # Seg Neutrophils # Man Lymphocytes # (Manual) Monocytes # (Manual) Fibrinogen dRVVT Confirm Interp Factor V Activity POC ABG pH POC ABG pCO2 POC ABG pO2 Sodium Potassium Chloride Carbon Dioxide BUN Creatinine Glucose POC Glucose 266 H 154 H Calcium Phosphorus Magnesium C-Reactive Protein Total Protein Albumin Triglycerides HDL Cholesterol Urine WBC (Auto) Urine Creatinine Urine Total Protein Rheumatoid Factor Complement C4 Crossmatch 09/15/16 09/15/16 09/15/16 05:00 05:17 12:45 WBC RBC Hgb Hct MCV MCH MCHC RDW Plt Count Lymph % (Auto) [place] # Seg Neutrophils % Seg Neuts % (Manual) Lymphocytes % (Manual) Monocytes % (Manual) Seg Neutrophils # Seg Neutrophils # Man Lymphocytes # (Manual) Monocytes # (Manual) Fibrinogen dRVVT Confirm Interp Factor V Activity POC ABG pH POC ABG pCO2 POC ABG pO2 Sodium Potassium 5.2 H Chloride Carbon Dioxide 18 L BUN 139 H Creatinine 3.7 H Glucose 227 H POC Glucose 226 H 244 H Calcium 8.3 L Phosphorus Magnesium C-Reactive Protein Total Protein Albumin Triglycerides HDL Cholesterol Urine WBC (Auto) Urine Creatinine Urine Total Protein Rheumatoid Factor Complement C4 Crossmatch 09/15/16 09/15/16 09/15/16 14:32 17:33 23:35 WBC RBC Hgb Hct MCV MCH MCHC RDW Plt Count Lymph % (Auto) [place] # Seg Neutrophils % Seg Neuts % (Manual) Lymphocytes % (Manual) Monocytes % (Manual) Seg Neutrophils # Seg Neutrophils # Man Lymphocytes # (Manual) Monocytes # (Manual) Fibrinogen dRVVT Confirm Interp Factor V Activity POC ABG pH POC ABG pCO2 27.7 L POC ABG pO2 120 H Sodium Potassium Chloride Carbon Dioxide BUN Creatinine Glucose POC Glucose 232 H 167 H Calcium Phosphorus Magnesium C-Reactive Protein Total Protein Albumin Triglycerides HDL Cholesterol Urine WBC (Auto) Urine Creatinine Urine Total Protein Rheumatoid Factor Complement C4 Crossmatch 09/16/16 09/16/16 09/16/16 03:58 10:27 10:27 WBC 19.0 H RBC 2.77 L Hgb 6.5 L Hct 20.9 L MCV 76 L MCH 23 L MCHC RDW 19.3 H Plt Count Lymph % (Auto) 11.0 L [place] # 1.1 H Seg Neutrophils % 82.5 H Seg Neuts % (Manual) Lymphocytes % (Manual) Monocytes % (Manual) Seg Neutrophils # 15.7 H Seg Neutrophils # Man Lymphocytes # (Manual) Monocytes # (Manual) Fibrinogen dRVVT Confirm Interp Factor V Activity POC ABG pH POC ABG pCO2 POC ABG pO2 Sodium Potassium Chloride 109.3 H Carbon Dioxide 18 L BUN 139 H Creatinine 4.1 H Glucose 144 H POC Glucose 146 H Calcium 8.1 L Phosphorus Magnesium C-Reactive Protein Total Protein Albumin Triglycerides HDL Cholesterol Urine WBC (Auto) Urine Creatinine Urine Total Protein Rheumatoid Factor Complement C4 Crossmatch 09/16/16 09/16/16 09/16/16 12:04 12:10 13:55 WBC RBC Hgb Hct MCV MCH MCHC RDW Plt Count Lymph % (Auto) [place] # Seg Neutrophils % Seg Neuts % (Manual) Lymphocytes % (Manual) Monocytes % (Manual) Seg Neutrophils # Seg Neutrophils # Man Lymphocytes # (Manual) Monocytes # (Manual) Fibrinogen dRVVT Confirm Interp Factor V Activity POC ABG pH POC ABG pCO2 32.9 L POC ABG pO2 Sodium Potassium Chloride Carbon Dioxide BUN Creatinine Glucose POC Glucose 185 H Calcium Phosphorus Magnesium C-Reactive Protein Total Protein Albumin Triglycerides HDL Cholesterol Urine WBC (Auto) Urine Creatinine Urine Total Protein Rheumatoid Factor Complement C4 Crossmatch See Detail 09/16/16 09/16/16 09/16/16 17:55 19:19 23:48 WBC RBC Hgb Hct MCV MCH MCHC RDW Plt Count Lymph % (Auto) [place] # Seg Neutrophils % Seg Neuts % (Manual) Lymphocytes % (Manual) Monocytes % (Manual) Seg Neutrophils # Seg Neutrophils # Man Lymphocytes # (Manual) Monocytes # (Manual) Fibrinogen dRVVT Confirm Interp Factor V Activity POC ABG pH POC ABG pCO2 POC ABG pO2 Sodium Potassium Chloride Carbon Dioxide BUN Creatinine Glucose POC Glucose 222 H 107 H Calcium Phosphorus Magnesium C-Reactive Protein Total Protein Albumin Triglycerides HDL Cholesterol Urine WBC (Auto) Urine Creatinine 47.4 H Urine Total Protein 16 H Rheumatoid Factor Complement C4 Crossmatch 09/17/16 09/17/16 09/17/16 03:45 03:45 04:55 WBC 19.6 H RBC 3.41 L Hgb 8.5 L Hct 26.7 L MCV 78 L MCH 25 L MCHC RDW 19.9 H Plt Count Lymph % (Auto) 9.3 L [place] # 1.2 H Seg Neutrophils % 83.9 H Seg Neuts % (Manual) Lymphocytes % (Manual) Monocytes % (Manual) Seg Neutrophils # 16.4 H Seg Neutrophils # Man Lymphocytes # (Manual) Monocytes # (Manual) Fibrinogen dRVVT Confirm Interp Factor V Activity POC ABG pH POC ABG pCO2 POC ABG pO2 Sodium 146 H Potassium 5.1 H Chloride 110.9 H Carbon Dioxide 16 L BUN 146 H Creatinine 4.0 H Glucose 108 H POC Glucose 133 H Calcium Phosphorus Magnesium 3.00 H C-Reactive Protein Total Protein Albumin Triglycerides HDL Cholesterol Urine WBC (Auto) Urine Creatinine Urine Total Protein Rheumatoid Factor Complement C4 Crossmatch 09/17/16 09/17/16 09/17/16 11:15 17:33 23:47 WBC RBC Hgb Hct MCV MCH MCHC RDW Plt Count Lymph % (Auto) [place] # Seg Neutrophils % Seg Neuts % (Manual) Lymphocytes % (Manual) Monocytes % (Manual) Seg Neutrophils # Seg Neutrophils # Man Lymphocytes # (Manual) Monocytes # (Manual) Fibrinogen dRVVT Confirm Interp Factor V Activity POC ABG pH POC ABG pCO2 POC ABG pO2 Sodium Potassium Chloride Carbon Dioxide BUN Creatinine Glucose POC Glucose 176 H 246 H 148 H Calcium Phosphorus Magnesium C-Reactive Protein Total Protein Albumin Triglycerides HDL Cholesterol Urine WBC (Auto) Urine Creatinine Urine Total Protein Rheumatoid Factor Complement C4 Crossmatch 09/18/16 09/18/16 09/18/16 05:33 08:31 08:31 WBC 18.0 H RBC 3.17 L Hgb 9.0 L Hct 25.7 L MCV MCH MCHC 35 H RDW 20.4 H Plt Count Lymph % (Auto) [place] # Seg Neutrophils % Seg Neuts % (Manual) Lymphocytes % (Manual) Monocytes % (Manual) Seg Neutrophils # Seg Neutrophils # Man Lymphocytes # (Manual) Monocytes # (Manual) Fibrinogen dRVVT Confirm Interp Factor V Activity POC ABG pH POC ABG pCO2 POC ABG pO2 Sodium Potassium Chloride Carbon Dioxide 15 L BUN 124 H Creatinine 3.8 H Glucose POC Glucose 120 H Calcium 8.1 L Phosphorus Magnesium C-Reactive Protein Total Protein Albumin Triglycerides HDL Cholesterol Urine WBC (Auto) Urine Creatinine Urine Total Protein Rheumatoid Factor Complement C4 Crossmatch 09/18/16 12:03 WBC RBC Hgb Hct MCV MCH MCHC RDW Plt Count Lymph % (Auto) [place]urry # Seg Neutrophils % Seg Neuts % (Manual) Lymphocytes % (Manual) Monocytes % (Manual) Seg Neutrophils # Seg Neutrophils # Man Lymphocytes # (Manual) Monocytes # (Manual) Fibrinogen dRVVT Confirm Interp Factor V Activity POC ABG pH POC ABG pCO2 POC ABG pO2 Sodium Potassium Chloride Carbon Dioxide BUN Creatinine Glucose POC Glucose 156 H Calcium Phosphorus Magnesium C-Reactive Protein Total Protein Albumin Triglycerides HDL Cholesterol Urine WBC (Auto) Urine Creatinine Urine Total Protein Rheumatoid Factor Complement C4 Crossmatch Allied health notes reviewed: RT
[2016-09-18] MEDS ORDERED: REGLAN IV PRN (14:15)
[2016-09-18] MEDS: APRESOLINE IV PRN (14:17)
--- NOTE | 2016-09-18 15:19 | Progress Note ---
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 Patient w/ good UOP, stable electrolytes. No acute indication for [employer] at this time. Continue free H2O with tube feeds Continue po bicarb Vent management per critical care Neurology recommendations noted Dose medications for renal function Avoid potential nephrotoxins Subjective Date of service: 09/18/16 Principal diagnosis: Acute Respiratory Failure on MVS; Acute CVA; Acute Encephalopathy Interval history: No acute events overnight. Objective - Vital Signs Vital signs: Vital Signs - 12hr 09/18/16 09/18/16 09/18/16 03:30 04:00 04:30 Temperature 98.7 F Pulse Rate 107 H 106 H 112 H Pulse Rate [ 99 H From Monitor] Respiratory 20 18 15 Rate Blood Pressure 188/91 184/93 202/88 O2 Sat by Pulse 100 100 Oximetry 09/18/16 09/18/16 09/18/16 04:59 05:00 05:30 Temperature Pulse Rate 118 H 110 H Pulse Rate [ From Monitor] Respiratory 14 19 14 Rate Blood Pressure 134/111 116/70 O2 Sat by Pulse 98 100 Oximetry 09/18/16 09/18/16 09/18/16 05:37 06:00 06:30 Temperature Pulse Rate 105 H 97 H 94 H Pulse Rate [ From Monitor] Respiratory 14 14 Rate Blood Pressure 140/76 135/75 143/72 O2 Sat by Pulse 100 100 Oximetry 09/18/16 09/18/16 09/18/16 07:00 07:30 07:44 Temperature 98.5 F Pulse Rate 95 H 95 H Pulse Rate [ From Monitor] Respiratory 14 20 Rate Blood Pressure 141/73 195/99 O2 Sat by Pulse 100 100 Oximetry 09/18/16 09/18/16 09/18/16 07:58 08:00 08:30 Temperature Pulse Rate 91 H 93 H Pulse Rate [ 92 H From Monitor] Respiratory 14 18 Rate Blood Pressure 128/86 174/79 O2 Sat by Pulse 100 100 100 Oximetry 09/18/16 09/18/16 09/18/16 09:00 09:30 09:45 Temperature Pulse Rate 92 H 96 H 90 Pulse Rate [ From Monitor] Respiratory 14 19 Rate Blood Pressure 167/82 170/88 O2 Sat by Pulse 100 100 Oximetry 09/18/16 09/18/16 09/18/16 10:00 10:30 11:00 Temperature Pulse Rate 105 H 109 H 108 H Pulse Rate [ From Monitor] Respiratory 14 14 14 Rate Blood Pressure 126/67 109/61 113/60 O2 Sat by Pulse 100 100 100 Oximetry 09/18/16 09/18/16 09/18/16 11:30 11:35 12:00 Temperature 97.5 F L Pulse Rate 107 H 108 H 107 H Pulse Rate [ From Monitor] Respiratory 14 14 Rate Blood Pressure 114/61 110/60 125/63 O2 Sat by Pulse 100 100 100 Oximetry 09/18/16 09/18/16 09/18/16 12:26 12:30 13:00 Temperature Pulse Rate 103 H 97 H 101 H Pulse Rate [ From Monitor] Respiratory 14 14 Rate Blood Pressure 105/57 106/57 106/61 O2 Sat by Pulse 86 100 Oximetry 09/18/16 09/18/16 09/18/16 13:30 14:00 14:26 Temperature Pulse Rate 102 H 106 H Pulse Rate [ From Monitor] Respiratory 11 L 19 Rate Blood Pressure 106/70 180/96 O2 Sat by Pulse 100 100 100 Oximetry - General Appearance General appearance: well-developed, well-nourished, intubated EENT: other (ETT in place) Respiratory: Present: Other (coarse breath sounds) Cardiology: regular, S1S2 Gastrointestinal: obese Integumentary: no rash Neurologic: other (awake, follows some commands) - Lab 09/18/16 08:31 09/18/16 08:31 Most recent lab results Calcium 8.1 mg/dL (8.4-10.2) L 09/18/16 08:31 Phosphorus 4.30 mg/dL (2.5-4.5) D 09/08/16 06:18 Magnesium 3.00 mg/dL (1.7-2.3) H 09/17/16 03:45 Urine Creatinine 47.4 mg/dL (0.1-20.0) H 09/16/16 19:19 Urine Sodium 36 mEq/L 09/16/16 19:19 Urine Total Protein 16 mg/dL (5-11.8) H 09/16/16 19:19
--- NOTE | 2016-09-18 17:19 | XRay Report ---
FINAL REPORT PROCEDURE: XR ABDOMEN 1V AP TECHNIQUE: AP supine portable radiograph of the abdomen was obtained at 09/18/2016 20:47 (GMT) . HISTORY: feeding tube placement COMPARISON: No prior studies are available for comparison. FINDINGS: There is an NG tube directed into the stomach. This is directed to the right and resting on the greater curve of the stomach. Bowel gas pattern is unremarkable. Surgical clips are seen in the right upper quadrant. Small nonspecific calcifications are seen overlying the pelvis.. IMPRESSION: NG tube in good position. Postsurgical changes right upper quadrant. Small nonspecific calcifications project over the pelvis.
[2016-09-18] MEDS: ATIVAN IV PRN (17:47)
[2016-09-19] MEDS: FLAGYL 500 MG/100 ML 500 MG/100 ML BAG IV SCH ×3 (06:13→21:13)
[2016-09-19] MEDS: VANCOMYCIN PO FEEDTUBE SCH ×4 (06:14→17:19)
[2016-09-19] MEDS: HEPARIN SUB-Q SCH ×3 (06:14→21:14)
[2016-09-19] MEDS: LOPRESSOR PO SCH ×4 (06:20→17:19)
[2016-09-19] MEDS: HumuLIN R SUB-Q SCH ×4 (06:24→18:03)
[2016-09-19] MEDS: SODIUM BICARBONATE PO SCH ×3 (09:42→20:07)
[2016-09-19] MEDS: PROTONIX PO SCH ×2 (09:42→21:13)
[2016-09-19] MEDS: DELTASONE PO SCH (09:43)
[2016-09-19] MEDS: LEVEMIR (NF) SUB-Q SCH (09:43)
[2016-09-19] MEDS: LONITEN PO SCH (09:43)
[2016-09-19 10:04] LABS: Basophils # (Auto) 0.1 K/mm3 (0.0-0.1); Basophils % (Auto) 0.6 % (0.0-1.8); Eosinophils # (Auto) 0.1 K/mm3 (0.0-0.4); Eosinophils % (Auto) 0.6 % (0.0-4.3); Hematocrit 28.1 % (30.3-42.9); Lymphocytes % (Auto) 11.5 % (13.4-35.0); Mean Corpuscular HGB Conc 32 % (30-34); Mean Corpuscular Volume 81 fl (79-97); Monocytes # (Auto) 1.3 K/mm3 (0.0-0.8); Monocytes % (Auto) 7.5 % (0.0-7.3); Platelet Count 232 K/mm3 (140-440); Red Blood Count 3.49 M/mm3 (3.65-5.03)
[2016-09-19 10:30] LABS: Calcium 8.5 mg/dL (8.4-10.2)
--- NOTE | 2016-09-19 10:37 | Gastroenterology Progress Note ---
<TERRI CARPIO - Last Filed: 09/19/16 10:42> Assessment and Plan 1.acute blood loss anemia -HGB 9.0 yesterday- CBC results for today pending -continue to monitor H&H and transfuse as needed -unclear cause, but with recurrent N/V, intolerance of feeds, and abnl CT form May, pt will need upper and lower endoscopy -no reports of emesis and NG aspirate/ rectal tube show no bleeding overnight or today per nursing -continue PPI -will consider EGD/colonoscopy when pt's condition improves, unless overt bleeding develops -will follow Subjective Date of service: 09/19/16 Principal diagnosis: anemia Interval history: Patient intubated and sedated. No vomiting or signs of active bleeding per nursing. NG aspirate showing no bleeding and rectal tube with dark browish/ green stool. Objective - Constitutional Vitals: Temp Pulse Resp BP Pulse Ox 97.5 F L 119 H 16 155/72 100 09/19/16 07:15 09/19/16 08:23 09/19/16 08:23 09/19/16 08:23 09/19/16 08:23 General appearance: mild distress, other (intubated and sedated) - Respiratory Respiratory: bilateral: diminished (anterior) - Cardiovascular Rhythm: other (tachycardia) Heart Sounds: Present: S1 & S2 - Gastrointestinal General gastrointestinal: Present: soft, non-distended, normal bowel sounds - Neurologic Neurological: other (unable to assess) - Labs CBC & Chem 7: 09/19/16 09:50 09/19/16 09:50 Labs: Laboratory Results - last 24 hr 09/18/16 09/18/16 09/18/16 12:03 15:34 17:50 [place]y % (Auto) Eos % (Auto) [place]y # Eos # Baso # Seg Neutrophils % Seg Neutrophils # POC ABG pH 7.387 POC ABG pCO2 25.7 L POC ABG pO2 66 L POC ABG HCO3 15.5 POC ABG Total CO2 16 POC ABG O2 Sat 93 POC ABG Base Excess -10 FiO2 30 Sodium Potassium Chloride Carbon Dioxide Anion Gap Creatinine Estimated GFR Glucose POC Glucose 156 H 220 H Calcium 09/18/16 09/19/16 09/19/16 23:54 06:21 09:50 [place]y % (Auto) 7.5 H Eos % (Auto) 0.6 Y[place]y # 1.3 H Eos # 0.1 Baso # 0.1 Seg Neutrophils % 79.8 H Seg Neutrophils # 13.7 H POC ABG pH POC ABG pCO2 POC ABG pO2 POC ABG HCO3 POC ABG Total CO2 POC ABG O2 Sat POC ABG Base Excess FiO2 Sodium Potassium Chloride Carbon Dioxide Anion Gap Creatinine Estimated GFR Glucose POC Glucose 91 119 H Calcium 09/19/16 09:50 [place] % (Auto) Eos % (Auto) [place] # Eos # Baso # Seg Neutrophils % Seg Neutrophils # POC ABG pH POC ABG pCO2 POC ABG pO2 POC ABG HCO3 POC ABG Total CO2 POC ABG O2 Sat POC ABG Base Excess FiO2 Sodium 143 Potassium 4.5 Chloride 108.6 H Carbon Dioxide 15 L Anion Gap 24 Creatinine 4.1 H Estimated GFR 14 Glucose 124 H POC Glucose Calcium 8.5 <LACY JARVIS - Last Filed: 09/19/16 19:44> Assessment and Plan Patient seen and examined. Agree with note by Terri Carpio. H/H stable. Will hold off on colonoscopy/EGD unless pt develops signs of overt GI bleeding. Will need eventual work-up for anemia and prior abnormal CT findings once medically stable Objective - Constitutional Vitals: Temp Pulse Resp BP Pulse Ox 98.4 F 102 H 14 163/87 100 09/19/16 16:20 09/19/16 19:21 09/19/16 18:00 09/19/16 19:21 09/19/16 19:21 - Labs CBC & Chem 7: 09/19/16 09:50 09/19/16 09:50 Labs: Laboratory Results - last 24 hr 09/18/16 09/19/16 09/19/16 23:54 06:21 09:50 WBC 17.1 H RBC 3.49 L Hgb 9.0 L Hct 28.1 L MCV 81 MCH 26 L MCHC 32 RDW 20.8 H Plt Count 232 Lymph % (Auto) 11.5 L [place] % (Auto) 7.5 H Eos % (Auto) 0.6 Baso % (Auto) 0.6 Lymph # 2.0 [place]y # 1.3 H Eos # 0.1 Baso # 0.1 Seg Neutrophils % 79.8 H Seg Neutrophils # 13.7 H Sodium Potassium Chloride Carbon Dioxide Anion Gap BUN Creatinine Estimated GFR BUN/Creatinine Ratio Glucose POC Glucose 91 119 H Calcium 09/19/16 09/19/16 09/19/16 09:50 11:25 17:53 WBC RBC Hgb Hct MCV MCH MCHC RDW Plt Count Lymph % (Auto) [place] % (Auto) Eos % (Auto) Baso % (Auto) Lymph # [place] # Eos # Baso # Seg Neutrophils % Seg Neutrophils # Sodium 143 Potassium 4.5 Chloride 108.6 H Carbon Dioxide 15 L Anion Gap 24 BUN 125 H Creatinine 4.1 H Estimated GFR 14 BUN/Creatinine Ratio 30.48 Glucose 124 H POC Glucose 160 H 245 H Calcium 8.5
[2016-09-19 10:41] LABS: Mean Corpuscular Hemoglobin 26 pg (28-32); Red Cell Distribution Width 20.8 % (13.2-15.2)
[2016-09-19] MEDS ORDERED: CATHFLO IV ONE (10:42)
--- NOTE | 2016-09-19 10:44 | Progress Note ---
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 Patient w/ good UOP, stable electrolytes. No acute indication for [employer] at this time. * Continue free H2O with tube feeds * Increase NaBicarb 1300mg TID * Vent management per critical care * Neurology recommendations noted * Dose medications for renal function * Avoid potential nephrotoxins * Note plans for trach/PEG Subjective Date of service: 09/19/16 Principal diagnosis: anemia Interval history: No acute events overnight Objective - Vital Signs Vital signs: Vital Signs - 12hr 09/18/16 09/18/16 09/18/16 23:00 23:24 23:30 Temperature Pulse Rate 114 H 109 H 106 H Pulse Rate [ None] Respiratory 14 14 Rate Blood Pressure 106/53 106/53 106/53 O2 Sat by Pulse 100 100 Oximetry 09/19/16 09/19/16 09/19/16 00:00 00:30 01:00 Temperature 98.4 F Pulse Rate 117 H 109 H 112 H Pulse Rate [ None] Respiratory 15 14 13 Rate Blood Pressure 110/47 110/47 101/43 O2 Sat by Pulse 100 100 Oximetry 09/19/16 09/19/16 09/19/16 01:30 02:00 02:30 Temperature Pulse Rate 111 H 124 H 113 H Pulse Rate [ None] Respiratory 14 19 14 Rate Blood Pressure 110/47 101/43 142/81 O2 Sat by Pulse 100 100 100 Oximetry 09/19/16 09/19/16 09/19/16 03:00 03:25 03:30 Temperature Pulse Rate 113 H 112 H 112 H Pulse Rate [ None] Respiratory 14 14 Rate Blood Pressure 111/60 111/60 142/81 O2 Sat by Pulse 100 100 100 Oximetry 09/19/16 09/19/16 09/19/16 04:00 04:30 05:00 Temperature 98.4 F Pulse Rate 110 H 109 H 112 H Pulse Rate [ 97 H None] Respiratory 14 14 14 Rate Blood Pressure 121/67 121/67 129/66 O2 Sat by Pulse 100 100 Oximetry 09/19/16 09/19/16 09/19/16 05:30 06:00 06:20 Temperature Pulse Rate 108 H 110 H 110 H Pulse Rate [ None] Respiratory 13 14 Rate Blood Pressure 129/66 138/64 138/64 O2 Sat by Pulse 99 97 Oximetry 09/19/16 09/19/16 09/19/16 06:30 07:00 07:15 Temperature 97.5 F L Pulse Rate 107 H 107 H Pulse Rate [ None] Respiratory 15 14 Rate Blood Pressure 138/64 124/60 O2 Sat by Pulse 100 98 Oximetry 09/19/16 09/19/16 09/19/16 07:30 08:00 08:14 Temperature Pulse Rate 118 H 121 H 119 H Pulse Rate [ None] Respiratory 19 18 Rate Blood Pressure 124/60 124/60 155/72 O2 Sat by Pulse 100 100 100 Oximetry 09/19/16 09/19/16 09/19/16 08:23 08:30 09:00 Temperature Pulse Rate 119 H 119 H 116 H Pulse Rate [ None] Respiratory 16 14 13 Rate Blood Pressure 155/72 155/72 158/78 O2 Sat by Pulse 100 100 100 Oximetry 09/19/16 09/19/16 09/19/16 09:30 10:00 10:30 Temperature Pulse Rate 118 H 132 H 136 H Pulse Rate [ None] Respiratory 13 12 14 Rate Blood Pressure 158/78 158/78 109/48 O2 Sat by Pulse 100 99 99 Oximetry - General Appearance General appearance: well-developed, well-nourished, intubated EENT: ATNC Respiratory: Present: Clear to Ascultation Cardiology: tachycardia, S1S2 Gastrointestinal: normoactive bowel sounds, no tenderness, no distended, obese Integumentary: no rash, warm and dry Musculoskeletal: other (no edema) - Lab 09/19/16 09:50 09/19/16 09:50 Most recent lab results Calcium 8.5 mg/dL (8.4-10.2) 09/19/16 09:50 Phosphorus 4.30 mg/dL (2.5-4.5) D 09/08/16 06:18 Magnesium 3.00 mg/dL (1.7-2.3) H 09/17/16 03:45 Urine Creatinine 47.4 mg/dL (0.1-20.0) H 09/16/16 19:19 Urine Sodium 36 mEq/L 09/16/16 19:19 Urine Total Protein 16 mg/dL (5-11.8) H 09/16/16 19:19
--- NOTE | 2016-09-19 11:07 | Progress Note ---
Assessment and Plan - Patient Problems (1) Acute respiratory failure with hypoxia Current Visit: Yes Status: Acute Plan to address problem: - continue aspiration precautions / address VAP bundles - continue to wean oxygen for MAP > 94% - continue bronchodilators and pulmonary toilet - will continue to taper systemic steroids (no active needs pulmonary-[place]) - completed empiric levaquin dosing - consult placed for trach and PEG placement - continue daytime PSV trials as tolerated while awaiting trach and PEG (2) Acute CVA (cerebrovascular accident) Current Visit: Yes Status: Acute Plan to address problem: - out of tpA window (initially stopped due to uncontrolled HTN) - Left MCA teritory stroke with some midline shift on last CT - seen by neurology and prognosis for recovery of mental status guarded to poor - optimizing secondary prevention modalities now (BP, lipid anti-platelet therapy) - will continue steroid taper (reduced to 20mg daily prednisone) (3) Hypertensive emergency Current Visit: Yes Status: Acute Plan to address problem: - resolved - continue clonidine patch at 0.3mg qweek - continue prn IV rescue labetalol - added metoprolol re: tachycardia also - started on minoxidil by nephrology - BP's better controlled overall (4) Obesity (BMI 35.0-39.9 without comorbidity) Current Visit: Yes Status: Chronic Plan to address problem: - adjust tube feeds per surgical forceps fabricator's recommendations - supportive and preventive skin care re: breakdown - to resume tube feeds today - continue reglan re: high residuals (5) Type 2 diabetes mellitus Current Visit: Yes Status: Chronic Qualifiers: Diabetes mellitus complication status: D Diabetes mellitus complication detail: D Diabetic retinopathy severity: D Proliferative retinopathy type: P Diabetes mellitus macular edema: D Diabetes mellitus penitentiary insulin use : D Laterality: L Chronic kidney disease stage: C Plan to address problem: - continue SSI - continue lantus at 8 units sq q24h (6) Leukocytosis (leucocytosis) Current Visit: Yes Status: Acute Qualifiers: Leukocytosis type: leukemoid reaction Qualified Code(s): D72.823 - Leukemoid reaction Plan to address problem: - afebrile - ? leukemoid reaction - ? steroid leucocytosis - continue empiric levaquin - get CRP & lactate and trend - tapering systemic steroids - follow clinically - C-diff infection assay negative - ID consulted and on flagyl & vancomycin - WBC trending down - cultures NGTD (7) Discharge planning issues Current Visit: Yes Status: Acute Plan to address problem: - she remains critically ill on life sustaining interventions including MVS and at risk for further acute deterioration including .....awaiting trach and PEG ....LTAC thereafter ......30' CCT Subjective Date of service: 09/19/16 Principal diagnosis: Acute Hypoxemic Respiratory Failure; Acute CVA Interval history: Seen and examined at bedside; 24 hour events reviewed; nursing and respiratory care staff consulted; no adverse overnight events reported to me; resting peacefully in bed; tentatively for trach and PEG tomorrow; AMS is persistent; no emesis or overt aspiration reported; still making urine Objective Vital Signs - 12hr 09/18/16 09/18/16 09/19/16 23:24 23:30 00:00 Temperature 98.4 F Pulse Rate 109 H 106 H 117 H Pulse Rate [ None] Respiratory 14 15 Rate Blood Pressure 106/53 106/53 110/47 O2 Sat by Pulse 100 100 Oximetry 09/19/16 09/19/16 09/19/16 00:30 01:00 01:30 Temperature Pulse Rate 109 H 112 H 111 H Pulse Rate [ None] Respiratory 14 13 14 Rate Blood Pressure 110/47 101/43 110/47 O2 Sat by Pulse 100 100 100 Oximetry 09/19/16 09/19/16 09/19/16 02:00 02:30 03:00 Temperature Pulse Rate 124 H 113 H 113 H Pulse Rate [ None] Respiratory 19 14 14 Rate Blood Pressure 101/43 142/81 111/60 O2 Sat by Pulse 100 100 100 Oximetry 09/19/16 09/19/16 09/19/16 03:25 03:30 04:00 Temperature 98.4 F Pulse Rate 112 H 112 H 110 H Pulse Rate [ 97 H None] Respiratory 14 14 Rate Blood Pressure 111/60 142/81 121/67 O2 Sat by Pulse 100 100 100 Oximetry 09/19/16 09/19/16 09/19/16 04:30 05:00 05:30 Temperature Pulse Rate 109 H 112 H 108 H Pulse Rate [ None] Respiratory 14 14 13 Rate Blood Pressure 121/67 129/66 129/66 O2 Sat by Pulse 100 99 Oximetry 09/19/16 09/19/16 09/19/16 06:00 06:20 06:30 Temperature Pulse Rate 110 H 110 H 107 H Pulse Rate [ None] Respiratory 14 15 Rate Blood Pressure 138/64 138/64 138/64 O2 Sat by Pulse 97 100 Oximetry 09/19/16 09/19/16 09/19/16 07:00 07:15 07:30 Temperature 97.5 F L Pulse Rate 107 H 118 H Pulse Rate [ None] Respiratory 14 19 Rate Blood Pressure 124/60 124/60 O2 Sat by Pulse 98 100 Oximetry 09/19/16 09/19/16 09/19/16 08:00 08:14 08:23 Temperature Pulse Rate 121 H 119 H 119 H Pulse Rate [ None] Respiratory 18 16 Rate Blood Pressure 124/60 155/72 155/72 O2 Sat by Pulse 100 100 100 Oximetry 09/19/16 09/19/16 09/19/16 08:30 09:00 09:30 Temperature Pulse Rate 119 H 116 H 118 H Pulse Rate [ None] Respiratory 14 13 13 Rate Blood Pressure 155/72 158/78 158/78 O2 Sat by Pulse 100 100 100 Oximetry 09/19/16 09/19/16 09/19/16 10:00 10:30 11:02 Temperature Pulse Rate 132 H 136 H 131 H Pulse Rate [ None] Respiratory 12 14 10 L Rate Blood Pressure 158/78 109/48 109/48 O2 Sat by Pulse 99 99 98 Oximetry Constitutional: no acute distress, agitated, other (encephalopathic) Eyes: non-icteric ENT: oropharynx moist Neck: supple, no lymphadenopathy Effort: normal Ascultation: Bilateral: diminished breath sounds, rhonchi Cardiovascular: regular rate and rhythm Gastrointestinal: normoactive bowel sounds, soft, non-tender, non-distended Integumentary: normal Extremities: no cyanosis, no edema, pulses normal, no ischemia or petechiae Neurologic: pupils equal and round, other (sedated) Psychiatric: other (unable to assess) CBC and BMP: 09/20/16 04:10 09/20/16 04:10 ABG, PT/INR, D-dimer: ABG POC ABG pH 7.387 (7.35-7.45) 09/18/16 15:34 POC ABG pCO2 25.7 (35-45) L 09/18/16 15:34 POC ABG pO2 66 (80-105) L 09/18/16 15:34 POC ABG HCO3 15.5 09/18/16 15:34 POC ABG Total CO2 16 09/18/16 15:34 POC ABG O2 Sat 93 09/18/16 15:34 PT/INR, D-dimer PT 13.8 Sec. (12.2-14.9) 09/15/16 05:00 INR 1.01 (0.87-1.13) 09/15/16 05:00 Abnormal lab findings: Abnormal Labs 09/03/16 09/03/16 09/03/16 12:12 15:07 16:20 WBC RBC Hgb Hct MCV MCH MCHC RDW Plt Count Lymph % (Auto) [place] % (Auto) [place] # Seg Neutrophils % Seg Neuts % (Manual) Lymphocytes % (Manual) Monocytes % (Manual) Seg Neutrophils # Seg Neutrophils # Man Lymphocytes # (Manual) Monocytes # (Manual) Fibrinogen dRVVT Confirm Interp Factor V Activity POC ABG pH 7.452 H POC ABG pCO2 POC ABG pO2 Sodium Potassium Chloride Carbon Dioxide BUN Creatinine Glucose POC Glucose 178 H Calcium Phosphorus 2.20 L Magnesium 1.60 L C-Reactive Protein Total Protein Albumin Triglycerides HDL Cholesterol Urine WBC (Auto) Urine Creatinine Urine Total Protein Rheumatoid Factor Complement C4 Crossmatch 09/03/16 09/03/16 09/03/16 17:57 17:58 23:50 WBC RBC Hgb Hct MCV MCH MCHC RDW Plt Count Lymph % (Auto) [place] % (Auto) [place] # Seg Neutrophils % Seg Neuts % (Manual) Lymphocytes % (Manual) Monocytes % (Manual) Seg Neutrophils # Seg Neutrophils # Man Lymphocytes # (Manual) Monocytes # (Manual) Fibrinogen dRVVT Confirm Interp Factor V Activity POC ABG pH POC ABG pCO2 POC ABG pO2 Sodium Potassium Chloride Carbon Dioxide BUN Creatinine Glucose POC Glucose 162 H 145 H Calcium Phosphorus 2.30 L Magnesium C-Reactive Protein Total Protein Albumin Triglycerides HDL Cholesterol Urine WBC (Auto) Urine Creatinine Urine Total Protein Rheumatoid Factor Complement C4 Crossmatch 09/04/16 09/04/16 09/04/16 03:31 03:31 05:42 WBC RBC Hgb 9.7 L D Hct MCV 72 L MCH 23 L MCHC RDW 17.5 H Plt Count Lymph % (Auto) 11.1 L [place] % (Auto) [place] # Seg Neutrophils % 84.3 H Seg Neuts % (Manual) Lymphocytes % (Manual) Monocytes % (Manual) Seg Neutrophils # 8.9 H Seg Neutrophils # Man Lymphocytes # (Manual) Monocytes # (Manual) Fibrinogen dRVVT Confirm Interp Factor V Activity POC ABG pH POC ABG pCO2 POC ABG pO2 Sodium 135 L Potassium 2.9 L* Chloride 97.2 L Carbon Dioxide 19 L BUN Creatinine 1.7 H Glucose 170 H POC Glucose 152 H Calcium Phosphorus Magnesium C-Reactive Protein Total Protein Albumin Triglycerides 160 H HDL Cholesterol 31 L Urine WBC (Auto) Urine Creatinine Urine Total Protein Rheumatoid Factor Complement C4 Crossmatch 09/04/16 09/04/16 09/04/16 11:34 17:46 23:29 WBC RBC Hgb Hct MCV MCH MCHC RDW Plt Count Lymph % (Auto) [place] % (Auto) [place] # Seg Neutrophils % Seg Neuts % (Manual) Lymphocytes % (Manual) Monocytes % (Manual) Seg Neutrophils # Seg Neutrophils # Man Lymphocytes # (Manual) Monocytes # (Manual) Fibrinogen dRVVT Confirm Interp Factor V Activity POC ABG pH POC ABG pCO2 POC ABG pO2 Sodium Potassium Chloride Carbon Dioxide BUN Creatinine Glucose POC Glucose 165 H 210 H 139 H Calcium Phosphorus Magnesium C-Reactive Protein Total Protein Albumin Triglycerides HDL Cholesterol Urine WBC (Auto) Urine Creatinine Urine Total Protein Rheumatoid Factor Complement C4 Crossmatch 09/05/16 09/05/16 09/05/16 04:05 04:05 05:38 WBC RBC Hgb Hct MCV 76 L D MCH 23 L MCHC RDW 17.8 H Plt Count Lymph % (Auto) [place] % (Auto) [place] # Seg Neutrophils % Seg Neuts % (Manual) Lymphocytes % (Manual) Monocytes % (Manual) Seg Neutrophils # Seg Neutrophils # Man Lymphocytes # (Manual) Monocytes # (Manual) Fibrinogen dRVVT Confirm Interp Factor V Activity POC ABG pH POC ABG pCO2 POC ABG pO2 Sodium 134 L Potassium Chloride Carbon Dioxide 18 L BUN Creatinine 1.8 H Glucose 192 H POC Glucose 175 H Calcium Phosphorus Magnesium C-Reactive Protein Total Protein Albumin Triglycerides HDL Cholesterol Urine WBC (Auto) Urine Creatinine Urine Total Protein Rheumatoid Factor Complement C4 Crossmatch 09/05/16 09/05/16 09/05/16 11:38 17:48 23:22 WBC RBC Hgb Hct MCV MCH MCHC RDW Plt Count Lymph % (Auto) [place] % (Auto) [place] # Seg Neutrophils % Seg Neuts % (Manual) Lymphocytes % (Manual) Monocytes % (Manual) Seg Neutrophils # Seg Neutrophils # Man Lymphocytes # (Manual) Monocytes # (Manual) Fibrinogen dRVVT Confirm Interp Factor V Activity POC ABG pH POC ABG pCO2 POC ABG pO2 Sodium Potassium Chloride Carbon Dioxide BUN Creatinine Glucose POC Glucose 164 H 186 H 195 H Calcium Phosphorus Magnesium C-Reactive Protein Total Protein Albumin Triglycerides HDL Cholesterol Urine WBC (Auto) Urine Creatinine Urine Total Protein Rheumatoid Factor Complement C4 Crossmatch 09/06/16 09/06/16 09/06/16 04:12 05:59 07:32 WBC RBC Hgb Hct MCV MCH MCHC RDW Plt Count Lymph % (Auto) [place] % (Auto) [place] # Seg Neutrophils % Seg Neuts % (Manual) Lymphocytes % (Manual) Monocytes % (Manual) Seg Neutrophils # Seg Neutrophils # Man Lymphocytes # (Manual) Monocytes # (Manual) Fibrinogen dRVVT Confirm Interp Factor V Activity POC ABG pH 7.514 H POC ABG pCO2 29.1 L POC ABG pO2 72 L Sodium 133 L Potassium 3.4 L Chloride 94.9 L Carbon Dioxide 19 L BUN 30 H Creatinine 2.1 H Glucose 139 H POC Glucose 146 H Calcium Phosphorus Magnesium C-Reactive Protein Total Protein Albumin Triglycerides HDL Cholesterol Urine WBC (Auto) Urine Creatinine Urine Total Protein Rheumatoid Factor Complement C4 Crossmatch 09/06/16 09/06/16 09/06/16 11:57 17:58 19:02 WBC RBC Hgb Hct MCV MCH MCHC RDW Plt Count Lymph % (Auto) [place] % (Auto) [place] # Seg Neutrophils % Seg Neuts % (Manual) Lymphocytes % (Manual) Monocytes % (Manual) Seg Neutrophils # Seg Neutrophils # Man Lymphocytes # (Manual) Monocytes # (Manual) Fibrinogen dRVVT Confirm Interp Factor V Activity POC ABG pH 7.465 H POC ABG pCO2 32.0 L POC ABG pO2 Sodium Potassium Chloride Carbon Dioxide BUN Creatinine Glucose POC Glucose 165 H 160 H Calcium Phosphorus Magnesium C-Reactive Protein Total Protein Albumin Triglycerides HDL Cholesterol Urine WBC (Auto) Urine Creatinine Urine Total Protein Rheumatoid Factor Complement C4 Crossmatch 09/06/16 09/07/16 09/07/16 23:45 02:47 02:47 WBC RBC Hgb Hct MCV MCH MCHC RDW Plt Count Lymph % (Auto) [place] % (Auto) [place] # Seg Neutrophils % Seg Neuts % (Manual) Lymphocytes % (Manual) Monocytes % (Manual) Seg Neutrophils # Seg Neutrophils # Man Lymphocytes # (Manual) Monocytes # (Manual) Fibrinogen dRVVT Confirm Interp Factor V Activity POC ABG pH POC ABG pCO2 POC ABG pO2 Sodium Potassium Chloride Carbon Dioxide BUN Creatinine Glucose POC Glucose 204 H Calcium Phosphorus Magnesium C-Reactive Protein Total Protein Albumin Triglycerides HDL Cholesterol Urine WBC (Auto) 68.0 H Urine Creatinine 106.1 H Urine Total Protein Rheumatoid Factor Complement C4 Crossmatch 09/07/16 09/07/16 09/07/16 04:50 06:19 06:39 WBC RBC Hgb Hct MCV MCH MCHC RDW Plt Count Lymph % (Auto) [place] % (Auto) [place] # Seg Neutrophils % Seg Neuts % (Manual) Lymphocytes % (Manual) Monocytes % (Manual) Seg Neutrophils # Seg Neutrophils # Man Lymphocytes # (Manual) Monocytes # (Manual) Fibrinogen dRVVT Confirm Interp Factor V Activity POC ABG pH 7.457 H POC ABG pCO2 32.1 L POC ABG pO2 76 L Sodium 132 L Potassium Chloride 94.7 L Carbon Dioxide BUN 53 H Creatinine 2.9 H Glucose 151 H POC Glucose 149 H Calcium Phosphorus Magnesium C-Reactive Protein Total Protein Albumin Triglycerides HDL Cholesterol Urine WBC (Auto) Urine Creatinine Urine Total Protein Rheumatoid Factor Complement C4 Crossmatch 09/07/16 09/07/16 09/07/16 09:20 11:43 11:43 WBC 19.4 H RBC Hgb 8.3 L Hct 26.4 L D MCV 72 L D MCH 22 L MCHC RDW 17.9 H Plt Count Lymph % (Auto) 8.5 L [place] % (Auto) [place] # 1.0 H Seg Neutrophils % 85.8 H Seg Neuts % (Manual) Lymphocytes % (Manual) Monocytes % (Manual) Seg Neutrophils # 16.6 H Seg Neutrophils # Man Lymphocytes # (Manual) Monocytes # (Manual) Fibrinogen dRVVT Confirm Interp Factor V Activity POC ABG pH POC ABG pCO2 POC ABG pO2 Sodium 134 L Potassium Chloride 97.2 L Carbon Dioxide 20 L BUN 58 H Creatinine 2.9 H Glucose 147 H POC Glucose Calcium Phosphorus 2.40 L Magnesium 2.40 H C-Reactive Protein Total Protein 5.8 L Albumin 2.2 L Triglycerides HDL Cholesterol Urine WBC (Auto) Urine Creatinine Urine Total Protein Rheumatoid Factor Complement C4 58 H Crossmatch 09/07/16 09/07/16 09/07/16 11:50 16:00 17:31 WBC RBC Hgb Hct MCV MCH MCHC RDW Plt Count Lymph % (Auto) [place] % (Auto) [place] # Seg Neutrophils % Seg Neuts % (Manual) Lymphocytes % (Manual) Monocytes % (Manual) Seg Neutrophils # Seg Neutrophils # Man Lymphocytes # (Manual) Monocytes # (Manual) Fibrinogen dRVVT Confirm Interp Factor V Activity POC ABG pH POC ABG pCO2 POC ABG pO2 158 H Sodium Potassium Chloride Carbon Dioxide BUN Creatinine Glucose POC Glucose 175 H Calcium Phosphorus Magnesium C-Reactive Protein Total Protein Albumin Triglycerides HDL Cholesterol Urine WBC (Auto) Urine Creatinine 66.3 H Urine Total Protein Rheumatoid Factor Complement C4 Crossmatch 09/07/16 09/08/16 09/08/16 23:50 05:46 06:18 WBC 17.8 H RBC 3.58 L Hgb 8.1 L Hct 25.5 L MCV 71 L MCH 23 L MCHC RDW 18.4 H Plt Count Lymph % (Auto) [place] % (Auto) [place] # Seg Neutrophils % Seg Neuts % (Manual) 92.0 H Lymphocytes % (Manual) 6.0 L Monocytes % (Manual) Seg Neutrophils # Seg Neutrophils # Man 16.4 H Lymphocytes # (Manual) 1.1 L Monocytes # (Manual) Fibrinogen dRVVT Confirm Interp Factor V Activity POC ABG pH POC ABG pCO2 34.3 L POC ABG pO2 71 L Sodium Potassium Chloride Carbon Dioxide BUN Creatinine Glucose POC Glucose 216 H Calcium Phosphorus Magnesium C-Reactive Protein Total Protein Albumin Triglycerides HDL Cholesterol Urine WBC (Auto) Urine Creatinine Urine Total Protein Rheumatoid Factor Complement C4 Crossmatch 09/08/16 09/08/16 09/08/16 06:18 06:51 10:55 WBC RBC Hgb Hct MCV MCH MCHC RDW Plt Count Lymph % (Auto) [place] % (Auto) [place] # Seg Neutrophils % Seg Neuts % (Manual) Lymphocytes % (Manual) Monocytes % (Manual) Seg Neutrophils # Seg Neutrophils # Man Lymphocytes # (Manual) Monocytes # (Manual) Fibrinogen dRVVT Confirm Interp Factor V Activity POC ABG pH POC ABG pCO2 POC ABG pO2 Sodium 133 L Potassium Chloride 96.9 L Carbon Dioxide 20 L BUN 63 H Creatinine 2.7 H Glucose 195 H POC Glucose 204 H 169 H Calcium Phosphorus Magnesium C-Reactive Protein Total Protein Albumin Triglycerides HDL Cholesterol Urine WBC (Auto) Urine Creatinine Urine Total Protein Rheumatoid Factor Complement C4 Crossmatch 09/08/16 09/08/16 09/08/16 11:48 11:48 11:48 WBC RBC Hgb Hct MCV MCH MCHC RDW Plt Count Lymph % (Auto) [place] % (Auto) [place] # Seg Neutrophils % Seg Neuts % (Manual) Lymphocytes % (Manual) Monocytes % (Manual) Seg Neutrophils # Seg Neutrophils # Man Lymphocytes # (Manual) Monocytes # (Manual) Fibrinogen 750 H dRVVT Confirm Interp Factor V Activity POC ABG pH POC ABG pCO2 POC ABG pO2 Sodium Potassium Chloride Carbon Dioxide BUN Creatinine Glucose POC Glucose Calcium Phosphorus Magnesium C-Reactive Protein 15.70 H Total Protein Albumin Triglycerides HDL Cholesterol Urine WBC (Auto) Urine Creatinine Urine Total Protein Rheumatoid Factor 24 H Complement C4 Crossmatch 09/08/16 09/08/16 09/09/16 15:35 18:25 00:24 WBC RBC Hgb Hct MCV MCH MCHC RDW Plt Count Lymph % (Auto) [place] % (Auto) [place] # Seg Neutrophils % Seg Neuts % (Manual) Lymphocytes % (Manual) Monocytes % (Manual) Seg Neutrophils # Seg Neutrophils # Man Lymphocytes # (Manual) Monocytes # (Manual) Fibrinogen dRVVT Confirm Interp Factor V Activity 182 H POC ABG pH POC ABG pCO2 POC ABG pO2 Sodium Potassium Chloride Carbon Dioxide BUN Creatinine Glucose POC Glucose 184 H 216 H Calcium Phosphorus Magnesium C-Reactive Protein Total Protein Albumin Triglycerides HDL Cholesterol Urine WBC (Auto) Urine Creatinine Urine Total Protein Rheumatoid Factor Complement C4 Crossmatch 09/09/16 09/09/16 09/09/16 03:00 03:00 04:04 WBC 27.9 H RBC Hgb 8.7 L Hct 28.1 L MCV 72 L MCH 22 L MCHC RDW 18.4 H Plt Count 485 H Lymph % (Auto) [place] % (Auto) [place] # Seg Neutrophils % Seg Neuts % (Manual) 77.0 H Lymphocytes % (Manual) 9.0 L Monocytes % (Manual) Seg Neutrophils # Seg Neutrophils # Man 21.5 H Lymphocytes # (Manual) Monocytes # (Manual) 2.0 H Fibrinogen dRVVT Confirm Interp Factor V Activity POC ABG pH POC ABG pCO2 POC ABG pO2 121 H Sodium 135 L Potassium Chloride 96.3 L Carbon Dioxide 21 L BUN 83 H Creatinine 3.0 H Glucose 135 H POC Glucose Calcium Phosphorus Magnesium C-Reactive Protein Total Protein Albumin Triglycerides HDL Cholesterol Urine WBC (Auto) Urine Creatinine Urine Total Protein Rheumatoid Factor Complement C4 Crossmatch 09/09/16 09/09/16 09/09/16 05:41 11:55 14:13 WBC RBC Hgb Hct MCV MCH MCHC RDW Plt Count Lymph % (Auto) [place] % (Auto) [place] # Seg Neutrophils % Seg Neuts % (Manual) Lymphocytes % (Manual) Monocytes % (Manual) Seg Neutrophils # Seg Neutrophils # Man Lymphocytes # (Manual) Monocytes # (Manual) Fibrinogen dRVVT Confirm Interp Factor V Activity POC ABG pH POC ABG pCO2 POC ABG pO2 Sodium Potassium Chloride Carbon Dioxide BUN Creatinine Glucose POC Glucose 155 H 186 H Calcium Phosphorus Magnesium C-Reactive Protein Total Protein Albumin Triglycerides HDL Cholesterol Urine WBC (Auto) 25.0 H Urine Creatinine Urine Total Protein Rheumatoid Factor Complement C4 Crossmatch 09/09/16 09/09/16 09/10/16 17:33 23:13 05:09 WBC RBC Hgb Hct MCV MCH MCHC RDW Plt Count Lymph % (Auto) [place] % (Auto) [place] # Seg Neutrophils % Seg Neuts % (Manual) Lymphocytes % (Manual) Monocytes % (Manual) Seg Neutrophils # Seg Neutrophils # Man Lymphocytes # (Manual) Monocytes # (Manual) Fibrinogen dRVVT Confirm Interp Factor V Activity POC ABG pH POC ABG pCO2 POC ABG pO2 74 L Sodium Potassium Chloride Carbon Dioxide BUN Creatinine Glucose POC Glucose 211 H 215 H Calcium Phosphorus Magnesium C-Reactive Protein Total Protein Albumin Triglycerides HDL Cholesterol Urine WBC (Auto) Urine Creatinine Urine Total Protein Rheumatoid Factor Complement C4 Crossmatch 09/10/16 09/10/16 09/10/16 05:17 05:17 11:31 WBC 15.8 H RBC 3.25 L Hgb 7.3 L Hct 22.9 L MCV 71 L MCH 23 L MCHC RDW 18.4 H Plt Count Lymph % (Auto) [place] % (Auto) [place] # Seg Neutrophils % Seg Neuts % (Manual) 91.0 H Lymphocytes % (Manual) 4.0 L Monocytes % (Manual) Seg Neutrophils # Seg Neutrophils # Man 14.4 H Lymphocytes # (Manual) 0.6 L Monocytes # (Manual) Fibrinogen dRVVT Confirm Interp Factor V Activity POC ABG pH POC ABG pCO2 POC ABG pO2 Sodium Potassium Chloride Carbon Dioxide 21 L BUN 93 H Creatinine 2.9 H Glucose 146 H POC Glucose 188 H Calcium 8.1 L Phosphorus Magnesium C-Reactive Protein Total Protein Albumin Triglycerides HDL Cholesterol Urine WBC (Auto) Urine Creatinine Urine Total Protein Rheumatoid Factor Complement C4 Crossmatch 09/10/16 09/10/16 09/10/16 13:17 17:20 23:32 WBC RBC Hgb Hct MCV MCH MCHC RDW Plt Count Lymph % (Auto) [place] % (Auto) [place] # Seg Neutrophils % Seg Neuts % (Manual) Lymphocytes % (Manual) Monocytes % (Manual) Seg Neutrophils # Seg Neutrophils # Man Lymphocytes # (Manual) Monocytes # (Manual) Fibrinogen dRVVT Confirm Interp Factor V Activity POC ABG pH POC ABG pCO2 POC ABG pO2 Sodium Potassium Chloride Carbon Dioxide BUN Creatinine Glucose POC Glucose 199 H 186 H Calcium Phosphorus Magnesium C-Reactive Protein Total Protein Albumin Triglycerides HDL Cholesterol Urine WBC (Auto) Urine Creatinine Urine Total Protein Rheumatoid Factor Complement C4 Crossmatch See Detail 09/11/16 09/11/16 09/11/16 05:10 05:10 05:17 WBC 28.4 H RBC Hgb 9.2 L Hct 29.3 L D MCV 73 L MCH 23 L MCHC RDW 18.9 H Plt Count 452 H Lymph % (Auto) [place] % (Auto) [place] # Seg Neutrophils % Seg Neuts % (Manual) 89.5 H Lymphocytes % (Manual) 2.0 L Monocytes % (Manual) Seg Neutrophils # Seg Neutrophils # Man 25.4 H Lymphocytes # (Manual) 0.6 L Monocytes # (Manual) 1.3 H Fibrinogen dRVVT Confirm Interp Factor V Activity POC ABG pH POC ABG pCO2 POC ABG pO2 Sodium 136 L Potassium Chloride Carbon Dioxide 18 L BUN 107 H Creatinine 2.6 H Glucose 187 H POC Glucose 230 H Calcium 8.3 L Phosphorus Magnesium C-Reactive Protein Total Protein Albumin Triglycerides HDL Cholesterol Urine WBC (Auto) Urine Creatinine Urine Total Protein Rheumatoid Factor Complement C4 Crossmatch 09/11/16 09/11/16 09/11/16 05:55 12:02 17:32 WBC RBC Hgb Hct MCV MCH MCHC RDW Plt Count Lymph % (Auto) [place] % (Auto) [place] # Seg Neutrophils % Seg Neuts % (Manual) Lymphocytes % (Manual) Monocytes % (Manual) Seg Neutrophils # Seg Neutrophils # Man Lymphocytes # (Manual) Monocytes # (Manual) Fibrinogen dRVVT Confirm Interp Factor V Activity POC ABG pH POC ABG pCO2 33.8 L POC ABG pO2 Sodium Potassium Chloride Carbon Dioxide BUN Creatinine Glucose POC Glucose 191 H 239 H Calcium Phosphorus Magnesium C-Reactive Protein Total Protein Albumin Triglycerides HDL Cholesterol Urine WBC (Auto) Urine Creatinine Urine Total Protein Rheumatoid Factor Complement C4 Crossmatch 09/11/16 09/12/16 09/12/16 23:52 05:09 05:32 WBC RBC Hgb Hct MCV MCH MCHC RDW Plt Count Lymph % (Auto) [place] % (Auto) [place] # Seg Neutrophils % Seg Neuts % (Manual) Lymphocytes % (Manual) Monocytes % (Manual) Seg Neutrophils # Seg Neutrophils # Man Lymphocytes # (Manual) Monocytes # (Manual) Fibrinogen dRVVT Confirm Interp Factor V Activity POC ABG pH POC ABG pCO2 34.6 L POC ABG pO2 Sodium Potassium Chloride Carbon Dioxide BUN Creatinine Glucose POC Glucose 265 H 184 H Calcium Phosphorus Magnesium C-Reactive Protein Total Protein Albumin Triglycerides HDL Cholesterol Urine WBC (Auto) Urine Creatinine Urine Total Protein Rheumatoid Factor Complement C4 Crossmatch 09/12/16 09/12/16 09/12/16 06:45 06:45 07:22 WBC 31.7 H RBC 3.54 L Hgb 8.3 L Hct 25.9 L MCV 73 L MCH 23 L MCHC RDW 18.9 H Plt Count Lymph % (Auto) [place] % (Auto) [place] # Seg Neutrophils % Seg Neuts % (Manual) 88.5 H Lymphocytes % (Manual) 4.5 L Monocytes % (Manual) Seg Neutrophils # Seg Neutrophils # Man 28.1 H Lymphocytes # (Manual) Monocytes # (Manual) 1.0 H Fibrinogen dRVVT Confirm Interp Factor V Activity POC ABG pH POC ABG pCO2 POC ABG pO2 Sodium Potassium Chloride Carbon Dioxide 20 L BUN 115 H Creatinine 2.7 H Glucose 165 H POC Glucose Calcium 8.0 L Phosphorus Magnesium C-Reactive Protein Total Protein Albumin Triglycerides 217 H HDL Cholesterol Urine WBC (Auto) Urine Creatinine Urine Total Protein Rheumatoid Factor Complement C4 Crossmatch 09/12/16 09/12/16 09/12/16 07:22 09:59 12:21 WBC RBC Hgb Hct MCV MCH MCHC RDW Plt Count Lymph % (Auto) [place] % (Auto) [place] # Seg Neutrophils % Seg Neuts % (Manual) Lymphocytes % (Manual) Monocytes % (Manual) Seg Neutrophils # Seg Neutrophils # Man Lymphocytes # (Manual) Monocytes # (Manual) Fibrinogen dRVVT Confirm Interp Positive H Factor V Activity POC ABG pH POC ABG pCO2 POC ABG pO2 Sodium Potassium Chloride Carbon Dioxide BUN Creatinine Glucose POC Glucose 224 H Calcium Phosphorus Magnesium C-Reactive Protein 1.70 H Total Protein Albumin Triglycerides HDL Cholesterol Urine WBC (Auto) Urine Creatinine Urine Total Protein Rheumatoid Factor Complement C4 Crossmatch 09/12/16 09/12/16 09/13/16 16:51 23:28 04:00 WBC 45.0 H* RBC Hgb 9.4 L Hct MCV 75 L MCH 23 L MCHC RDW 19.0 H Plt Count 470 H Lymph % (Auto) [place] % (Auto) [place] # Seg Neutrophils % Seg Neuts % (Manual) 89.0 H Lymphocytes % (Manual) 5.0 L Monocytes % (Manual) Seg Neutrophils # Seg Neutrophils # Man 40.1 H Lymphocytes # (Manual) Monocytes # (Manual) Fibrinogen dRVVT Confirm Interp Factor V Activity POC ABG pH POC ABG pCO2 POC ABG pO2 Sodium Potassium Chloride Carbon Dioxide BUN Creatinine Glucose POC Glucose 169 H 150 H Calcium Phosphorus Magnesium C-Reactive Protein Total Protein Albumin Triglycerides HDL Cholesterol Urine WBC (Auto) Urine Creatinine Urine Total Protein Rheumatoid Factor Complement C4 Crossmatch 09/13/16 09/13/16 09/13/16 04:00 11:26 17:31 WBC RBC Hgb Hct MCV MCH MCHC RDW Plt Count Lymph % (Auto) [place] % (Auto) [place] # Seg Neutrophils % Seg Neuts % (Manual) Lymphocytes % (Manual) Monocytes % (Manual) Seg Neutrophils # Seg Neutrophils # Man Lymphocytes # (Manual) Monocytes # (Manual) Fibrinogen dRVVT Confirm Interp Factor V Activity POC ABG pH POC ABG pCO2 POC ABG pO2 Sodium Potassium Chloride Carbon Dioxide 20 L BUN 116 H Creatinine 3.0 H Glucose 172 H POC Glucose 140 H 183 H Calcium Phosphorus Magnesium C-Reactive Protein Total Protein 6.2 L Albumin 2.9 L Triglycerides HDL Cholesterol Urine WBC (Auto) Urine Creatinine Urine Total Protein Rheumatoid Factor Complement C4 Crossmatch 09/13/16 09/14/16 09/14/16 23:23 04:06 04:07 WBC 29.4 H RBC Hgb 8.9 L Hct 27.3 L MCV 75 L MCH 24 L MCHC RDW 19.1 H Plt Count Lymph % (Auto) [place] % (Auto) [place] # Seg Neutrophils % Seg Neuts % (Manual) 84.0 H Lymphocytes % (Manual) 6.0 L Monocytes % (Manual) 9.0 H Seg Neutrophils # Seg Neutrophils # Man 24.7 H Lymphocytes # (Manual) Monocytes # (Manual) 2.6 H Fibrinogen dRVVT Confirm Interp Factor V Activity POC ABG pH 7.342 L POC ABG pCO2 POC ABG pO2 116 H Sodium Potassium Chloride Carbon Dioxide BUN Creatinine Glucose POC Glucose 154 H Calcium Phosphorus Magnesium C-Reactive Protein Total Protein Albumin Triglycerides HDL Cholesterol Urine WBC (Auto) Urine Creatinine Urine Total Protein Rheumatoid Factor Complement C4 Crossmatch 09/14/16 09/14/16 09/14/16 04:07 05:29 12:19 WBC RBC Hgb Hct MCV MCH MCHC RDW Plt Count Lymph % (Auto) [place] % (Auto) [place] # Seg Neutrophils % Seg Neuts % (Manual) Lymphocytes % (Manual) Monocytes % (Manual) Seg Neutrophils # Seg Neutrophils # Man Lymphocytes # (Manual) Monocytes # (Manual) Fibrinogen dRVVT Confirm Interp Factor V Activity POC ABG pH POC ABG pCO2 POC ABG pO2 Sodium 136 L Potassium Chloride Carbon Dioxide 18 L BUN 121 H Creatinine 2.8 H Glucose 214 H POC Glucose 239 H 181 H Calcium Phosphorus Magnesium C-Reactive Protein Total Protein Albumin Triglycerides HDL Cholesterol Urine WBC (Auto) Urine Creatinine Urine Total Protein Rheumatoid Factor Complement C4 Crossmatch 09/14/16 09/14/16 09/15/16 18:12 23:37 05:00 WBC 26.1 H RBC 3.05 L Hgb 7.2 L Hct 22.9 L MCV 75 L MCH 24 L MCHC RDW 19.0 H Plt Count Lymph % (Auto) [place] % (Auto) [place] # Seg Neutrophils % Seg Neuts % (Manual) Lymphocytes % (Manual) Monocytes % (Manual) Seg Neutrophils # Seg Neutrophils # Man Lymphocytes # (Manual) Monocytes # (Manual) Fibrinogen dRVVT Confirm Interp Factor V Activity POC ABG pH POC ABG pCO2 POC ABG pO2 Sodium Potassium Chloride Carbon Dioxide BUN Creatinine Glucose POC Glucose 266 H 154 H Calcium Phosphorus Magnesium C-Reactive Protein Total Protein Albumin Triglycerides HDL Cholesterol Urine WBC (Auto) Urine Creatinine Urine Total Protein Rheumatoid Factor Complement C4 Crossmatch 09/15/16 09/15/16 09/15/16 05:00 05:17 12:45 WBC RBC Hgb Hct MCV MCH MCHC RDW Plt Count Lymph % (Auto) [place] % (Auto) [place] # Seg Neutrophils % Seg Neuts % (Manual) Lymphocytes % (Manual) Monocytes % (Manual) Seg Neutrophils # Seg Neutrophils # Man Lymphocytes # (Manual) Monocytes # (Manual) Fibrinogen dRVVT Confirm Interp Factor V Activity POC ABG pH POC ABG pCO2 POC ABG pO2 Sodium Potassium 5.2 H Chloride Carbon Dioxide 18 L BUN 139 H Creatinine 3.7 H Glucose 227 H POC Glucose 226 H 244 H Calcium 8.3 L Phosphorus Magnesium C-Reactive Protein Total Protein Albumin Triglycerides HDL Cholesterol Urine WBC (Auto) Urine Creatinine Urine Total Protein Rheumatoid Factor Complement C4 Crossmatch 09/15/16 09/15/16 09/15/16 14:32 17:33 23:35 WBC RBC Hgb Hct MCV MCH MCHC RDW Plt Count Lymph % (Auto) [place] % (Auto) [place] # Seg Neutrophils % Seg Neuts % (Manual) Lymphocytes % (Manual) Monocytes % (Manual) Seg Neutrophils # Seg Neutrophils # Man Lymphocytes # (Manual) Monocytes # (Manual) Fibrinogen dRVVT Confirm Interp Factor V Activity POC ABG pH POC ABG pCO2 27.7 L POC ABG pO2 120 H Sodium Potassium Chloride Carbon Dioxide BUN Creatinine Glucose POC Glucose 232 H 167 H Calcium Phosphorus Magnesium C-Reactive Protein Total Protein Albumin Triglycerides HDL Cholesterol Urine WBC (Auto) Urine Creatinine Urine Total Protein Rheumatoid Factor Complement C4 Crossmatch 09/16/16 09/16/16 09/16/16 03:58 10:27 10:27 WBC 19.0 H RBC 2.77 L Hgb 6.5 L Hct 20.9 L MCV 76 L MCH 23 L MCHC RDW 19.3 H Plt Count Lymph % (Auto) 11.0 L [place] % (Auto) [place] # 1.1 H Seg Neutrophils % 82.5 H Seg Neuts % (Manual) Lymphocytes % (Manual) Monocytes % (Manual) Seg Neutrophils # 15.7 H Seg Neutrophils # Man Lymphocytes # (Manual) Monocytes # (Manual) Fibrinogen dRVVT Confirm Interp Factor V Activity POC ABG pH POC ABG pCO2 POC ABG pO2 Sodium Potassium Chloride 109.3 H Carbon Dioxide 18 L BUN 139 H Creatinine 4.1 H Glucose 144 H POC Glucose 146 H Calcium 8.1 L Phosphorus Magnesium C-Reactive Protein Total Protein Albumin Triglycerides HDL Cholesterol Urine WBC (Auto) Urine Creatinine Urine Total Protein Rheumatoid Factor Complement C4 Crossmatch 09/16/16 09/16/16 09/16/16 12:04 12:10 13:55 WBC RBC Hgb Hct MCV MCH MCHC RDW Plt Count Lymph % (Auto) [place] % (Auto) [place] # Seg Neutrophils % Seg Neuts % (Manual) Lymphocytes % (Manual) Monocytes % (Manual) Seg Neutrophils # Seg Neutrophils # Man Lymphocytes # (Manual) Monocytes # (Manual) Fibrinogen dRVVT Confirm Interp Factor V Activity POC ABG pH POC ABG pCO2 32.9 L POC ABG pO2 Sodium Potassium Chloride Carbon Dioxide BUN Creatinine Glucose POC Glucose 185 H Calcium Phosphorus Magnesium C-Reactive Protein Total Protein Albumin Triglycerides HDL Cholesterol Urine WBC (Auto) Urine Creatinine Urine Total Protein Rheumatoid Factor Complement C4 Crossmatch See Detail 09/16/16 09/16/16 09/16/16 17:55 19:19 23:48 WBC RBC Hgb Hct MCV MCH MCHC RDW Plt Count Lymph % (Auto) [place] % (Auto) [place] # Seg Neutrophils % Seg Neuts % (Manual) Lymphocytes % (Manual) Monocytes % (Manual) Seg Neutrophils # Seg Neutrophils # Man Lymphocytes # (Manual) Monocytes # (Manual) Fibrinogen dRVVT Confirm Interp Factor V Activity POC ABG pH POC ABG pCO2 POC ABG pO2 Sodium Potassium Chloride Carbon Dioxide BUN Creatinine Glucose POC Glucose 222 H 107 H Calcium Phosphorus Magnesium C-Reactive Protein Total Protein Albumin Triglycerides HDL Cholesterol Urine WBC (Auto) Urine Creatinine 47.4 H Urine Total Protein 16 H Rheumatoid Factor Complement C4 Crossmatch 09/17/16 09/17/16 09/17/16 03:45 03:45 04:55 WBC 19.6 H RBC 3.41 L Hgb 8.5 L Hct 26.7 L MCV 78 L MCH 25 L MCHC RDW 19.9 H Plt Count Lymph % (Auto) 9.3 L [place] % (Auto) [place] # 1.2 H Seg Neutrophils % 83.9 H Seg Neuts % (Manual) Lymphocytes % (Manual) Monocytes % (Manual) Seg Neutrophils # 16.4 H Seg Neutrophils # Man Lymphocytes # (Manual) Monocytes # (Manual) Fibrinogen dRVVT Confirm Interp Factor V Activity POC ABG pH POC ABG pCO2 POC ABG pO2 Sodium 146 H Potassium 5.1 H Chloride 110.9 H Carbon Dioxide 16 L BUN 146 H Creatinine 4.0 H Glucose 108 H POC Glucose 133 H Calcium Phosphorus Magnesium 3.00 H C-Reactive Protein Total Protein Albumin Triglycerides HDL Cholesterol Urine WBC (Auto) Urine Creatinine Urine Total Protein Rheumatoid Factor Complement C4 Crossmatch 09/17/16 09/17/16 09/17/16 11:15 17:33 23:47 WBC RBC Hgb Hct MCV MCH MCHC RDW Plt Count Lymph % (Auto) [place] % (Auto) [place] # Seg Neutrophils % Seg Neuts % (Manual) Lymphocytes % (Manual) Monocytes % (Manual) Seg Neutrophils # Seg Neutrophils # Man Lymphocytes # (Manual) Monocytes # (Manual) Fibrinogen dRVVT Confirm Interp Factor V Activity POC ABG pH POC ABG pCO2 POC ABG pO2 Sodium Potassium Chloride Carbon Dioxide BUN Creatinine Glucose POC Glucose 176 H 246 H 148 H Calcium Phosphorus Magnesium C-Reactive Protein Total Protein Albumin Triglycerides HDL Cholesterol Urine WBC (Auto) Urine Creatinine Urine Total Protein Rheumatoid Factor Complement C4 Crossmatch 09/18/16 09/18/16 09/18/16 05:33 08:31 08:31 WBC 18.0 H RBC 3.17 L Hgb 9.0 L Hct 25.7 L MCV MCH MCHC 35 H RDW 20.4 H Plt Count Lymph % (Auto) [place] % (Auto) [place] # Seg Neutrophils % Seg Neuts % (Manual) Lymphocytes % (Manual) Monocytes % (Manual) Seg Neutrophils # Seg Neutrophils # Man Lymphocytes # (Manual) Monocytes # (Manual) Fibrinogen dRVVT Confirm Interp Factor V Activity POC ABG pH POC ABG pCO2 POC ABG pO2 Sodium Potassium Chloride Carbon Dioxide 15 L BUN 124 H Creatinine 3.8 H Glucose POC Glucose 120 H Calcium 8.1 L Phosphorus Magnesium C-Reactive Protein Total Protein Albumin Triglycerides HDL Cholesterol Urine WBC (Auto) Urine Creatinine Urine Total Protein Rheumatoid Factor Complement C4 Crossmatch 09/18/16 09/18/16 09/18/16 12:03 15:34 17:50 WBC RBC Hgb Hct MCV MCH MCHC RDW Plt Count Lymph % (Auto) [place] % (Auto) [place] # Seg Neutrophils % Seg Neuts % (Manual) Lymphocytes % (Manual) Monocytes % (Manual) Seg Neutrophils # Seg Neutrophils # Man Lymphocytes # (Manual) Monocytes # (Manual) Fibrinogen dRVVT Confirm Interp Factor V Activity POC ABG pH POC ABG pCO2 25.7 L POC ABG pO2 66 L Sodium Potassium Chloride Carbon Dioxide BUN Creatinine Glucose POC Glucose 156 H 220 H Calcium Phosphorus Magnesium C-Reactive Protein Total Protein Albumin Triglycerides HDL Cholesterol Urine WBC (Auto) Urine Creatinine Urine Total Protein Rheumatoid Factor Complement C4 Crossmatch 09/19/16 09/19/16 09/19/16 06:21 09:50 09:50 WBC 17.1 H RBC 3.49 L Hgb 9.0 L Hct 28.1 L MCV MCH 26 L MCHC RDW 20.8 H Plt Count Lymph % (Auto) 11.5 L [place] % (Auto) 7.5 H [place] # 1.3 H Seg Neutrophils % 79.8 H Seg Neuts % (Manual) Lymphocytes % (Manual) Monocytes % (Manual) Seg Neutrophils # 13.7 H Seg Neutrophils # Man Lymphocytes # (Manual) Monocytes # (Manual) Fibrinogen dRVVT Confirm Interp Factor V Activity POC ABG pH POC ABG pCO2 POC ABG pO2 Sodium Potassium Chloride 108.6 H Carbon Dioxide 15 L BUN Creatinine 4.1 H Glucose 124 H POC Glucose 119 H Calcium Phosphorus Magnesium C-Reactive Protein Total Protein Albumin Triglycerides HDL Cholesterol Urine WBC (Auto) Urine Creatinine Urine Total Protein Rheumatoid Factor Complement C4 Crossmatch Chest x-ray: image reviewed Allied health notes reviewed: RT
[2016-09-19 11:16] LABS: BUN/Creatinine Ratio 30.48
[2016-09-19] MEDS: DIPRIVAN 10 MG/ML 1,000 MG/100 ML BOTTLE IV SCH (11:32)
[2016-09-19] MEDS ORDERED: ATIVAN IV NR (12:15)
--- NOTE | 2016-09-19 13:52 | Progress Note ---
Subjective Narrative: Intubated on vent - 30 % Fio2 Sedated but arousable - sinus tach, o2 sat 100 % Neck - no masses, no crepitus Abd - protruberant, no elicitable tenderness ,TF in progress Imp - resp failure, CVA Plan - for bedside Trach/Peg tomorrow Consent done - off plavix Objective Vital Signs - 12hr 09/19/16 09/19/16 09/19/16 02:00 02:30 03:00 Temperature Pulse Rate 124 H 113 H 113 H Pulse Rate [ None] Respiratory 19 14 14 Rate Blood Pressure 101/43 142/81 111/60 O2 Sat by Pulse 100 100 100 Oximetry 09/19/16 09/19/16 09/19/16 03:25 03:30 04:00 Temperature 98.4 F Pulse Rate 112 H 112 H 110 H Pulse Rate [ 97 H None] Respiratory 14 14 Rate Blood Pressure 111/60 142/81 121/67 O2 Sat by Pulse 100 100 100 Oximetry 09/19/16 09/19/16 09/19/16 04:30 05:00 05:30 Temperature Pulse Rate 109 H 112 H 108 H Pulse Rate [ None] Respiratory 14 14 13 Rate Blood Pressure 121/67 129/66 129/66 O2 Sat by Pulse 100 99 Oximetry 09/19/16 09/19/16 09/19/16 06:00 06:20 06:30 Temperature Pulse Rate 110 H 110 H 107 H Pulse Rate [ None] Respiratory 14 15 Rate Blood Pressure 138/64 138/64 138/64 O2 Sat by Pulse 97 100 Oximetry 09/19/16 09/19/16 09/19/16 07:00 07:15 07:30 Temperature 97.5 F L Pulse Rate 107 H 118 H Pulse Rate [ None] Respiratory 14 19 Rate Blood Pressure 124/60 124/60 O2 Sat by Pulse 98 100 Oximetry 09/19/16 09/19/16 09/19/16 08:00 08:14 08:23 Temperature Pulse Rate 121 H 119 H 119 H Pulse Rate [ None] Respiratory 18 16 Rate Blood Pressure 124/60 155/72 155/72 O2 Sat by Pulse 100 100 100 Oximetry 09/19/16 09/19/16 09/19/16 08:30 09:00 09:30 Temperature Pulse Rate 119 H 116 H 118 H Pulse Rate [ None] Respiratory 14 13 13 Rate Blood Pressure 155/72 158/78 158/78 O2 Sat by Pulse 100 100 100 Oximetry 09/19/16 09/19/16 09/19/16 10:00 10:30 11:00 Temperature Pulse Rate 132 H 136 H 133 H Pulse Rate [ None] Respiratory 12 14 14 Rate Blood Pressure 158/78 109/48 95/56 O2 Sat by Pulse 99 99 97 Oximetry 09/19/16 09/19/16 09/19/16 11:02 11:15 11:57 Temperature 98.4 F Pulse Rate 131 H 129 H Pulse Rate [ None] Respiratory 10 L Rate Blood Pressure 109/48 95/56 O2 Sat by Pulse 98 Oximetry 09/19/16 09/19/16 12:00 12:10 Temperature Pulse Rate 104 H 105 H Pulse Rate [ None] Respiratory 15 Rate Blood Pressure 116/56 116/56 O2 Sat by Pulse 99 99 Oximetry - Labs 09/19/16 09:50 09/19/16 09:50 Diabetes panel 09/19/16 Range/Units 09:50 Sodium 143 (137-145) mmol/L Potassium 4.5 (3.6-5.0) mmol/L Chloride 108.6 H (98-107) mmol/L Carbon Dioxide 15 L (22-30) mmol/L BUN 125 H (7-17) mg/dL Creatinine 4.1 H (0.7-1.2) mg/dL Glucose 124 H (65-100) mg/dL Calcium 8.5 (8.4-10.2) mg/dL Calcium panel 09/19/16 Range/Units 09:50 Calcium 8.5 (8.4-10.2) mg/dL Pituitary panel 09/19/16 Range/Units 09:50 Sodium 143 (137-145) mmol/L Potassium 4.5 (3.6-5.0) mmol/L Chloride 108.6 H (98-107) mmol/L Carbon Dioxide 15 L (22-30) mmol/L BUN 125 H (7-17) mg/dL Creatinine 4.1 H (0.7-1.2) mg/dL Glucose 124 H (65-100) mg/dL Calcium 8.5 (8.4-10.2) mg/dL Adrenal panel 09/19/16 Range/Units 09:50 Sodium 143 (137-145) mmol/L Potassium 4.5 (3.6-5.0) mmol/L Chloride 108.6 H (98-107) mmol/L Carbon Dioxide 15 L (22-30) mmol/L BUN 125 H (7-17) mg/dL Creatinine 4.1 H (0.7-1.2) mg/dL Glucose 124 H (65-100) mg/dL Calcium 8.5 (8.4-10.2) mg/dL
--- NOTE | 2016-09-19 15:23 | Progress Note ---
Assessment and Plan - Patient Problems (1) Leukocytosis (leucocytosis) Current Visit: Yes Status: Acute Qualifiers: Leukocytosis type: leukemoid reaction Qualified Code(s): D72.823 - Leukemoid reaction Plan to address problem: Continue current antimicrobial management. WBC count is improving. Subjective Date of service: 09/19/16 Principal diagnosis: anemia Interval history: Remains in ICU. Afebrile. WBC count is improved. Objective - Constitutional Vitals: Vital Signs Temp Pulse Resp BP Pulse Ox 98.4 F 106 H 14 131/66 99 09/19/16 11:57 09/19/16 15:00 09/19/16 15:00 09/19/16 15:00 09/19/16 12:10 Temperature -Last 24 Hours Temperature 98.4 F Temperature 97.5 F Temperature 98.4 F Temperature 98.4 F Temperature 99 F Temperature 98.2 F General appearance: Present: well-nourished, other (intubated, FiO2 30%) - EENT ENT: other (NG tube and ET tube in place) - Neck Neck: supple - Respiratory Respiratory effort: normal Respiratory: bilateral: CTA - Cardiovascular Rhythm: regular Heart Sounds: Present: S1 & S2 Extremities: No edema - Gastrointestinal General gastrointestinal: Present: soft, non-distended, hypoactive bowel sounds Rectal Exam: stool dark (watery stool from rectal tube) - Genitourinary Female genitourinary: other ([place] with yellow urine) - Integumentary Integumentary: clear, no jaundice - Neurologic Neurologic: other (sedated with Fentamyl) - Labs CBC & Chem 7: 09/19/16 09:50 09/19/16 09:50 Labs: Abnormal lab results 09/18/16 09/18/16 09/19/16 Range/Units 15:34 17:50 06:21 WBC (4.5-11.0) K/mm3 RBC (3.65-5.03) M/mm3 Hgb (10.1-14.3) gm/dl Hct (30.3-42.9) % MCH (28-32) pg RDW (13.2-15.2) % Lymph % (Auto) (13.4-35.0) % [place] % (Auto) (0.0-7.3) % [place] # (0.0-0.8) K/mm3 Seg Neutrophils % (40.0-70.0) % Seg Neutrophils # (1.8-7.7) K/mm3 POC ABG pCO2 25.7 L (35-45) POC ABG pO2 66 L (80-105) Chloride (98-107) mmol/L Carbon Dioxide (22-30) mmol/L BUN (7-17) mg/dL Creatinine (0.7-1.2) mg/dL Glucose (65-100) mg/dL POC Glucose 220 H 119 H (70-105) 09/19/16 09/19/16 09/19/16 Range/Units 09:50 09:50 11:25 WBC 17.1 H (4.5-11.0) K/mm3 RBC 3.49 L (3.65-5.03) M/mm3 Hgb 9.0 L (10.1-14.3) gm/dl Hct 28.1 L (30.3-42.9) % MCH 26 L (28-32) pg RDW 20.8 H (13.2-15.2) % Lymph % (Auto) 11.5 L (13.4-35.0) % [place] % (Auto) 7.5 H (0.0-7.3) % [place] # 1.3 H (0.0-0.8) K/mm3 Seg Neutrophils % 79.8 H (40.0-70.0) % Seg Neutrophils # 13.7 H (1.8-7.7) K/mm3 POC ABG pCO2 (35-45) POC ABG pO2 (80-105) Chloride 108.6 H (98-107) mmol/L Carbon Dioxide 15 L (22-30) mmol/L BUN 125 H (7-17) mg/dL Creatinine 4.1 H (0.7-1.2) mg/dL Glucose 124 H (65-100) mg/dL POC Glucose 160 H (70-105) Microbiology 09/13/16 10:30 Urine,[place] Urine Culture - Final NO GROWTH AFTER 48 HOURS 09/13/16 09:04 Peripheral/Venous Blood Culture - Final NO GROWTH AFTER 5 DAYS 09/13/16 08:39 Peripheral/Venous Blood Culture - Final NO GROWTH AFTER 5 DAYS 09/15/16 18:44 Stool Stool Occult Blood (HORTENCIA) - Final 09/13/16 14:06 Tracheal Aspirate Sputum Culture - Final 09/11/16 15:03 Stool C. difficile DNA Amplification - Final 09/10/16 10:58 Urine,Clean Catch Urine Culture - Preliminary NO GROWTH AFTER 48 HOURS 09/07/16 17:39 Tracheal Aspirate Sputum Culture - Final - Imaging and cardiology Abdominal x-ray: report reviewed
--- NOTE | 2016-09-19 15:41 | Progress Note ---
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/encephalopathy Aspirin/statin/supportive care --Acute hypoxic respiratory failure on mechanical ventilation > 96 hours Vent dependent, unable to wean, Possible trach and PEG if unable to wean --Aspiration pneumonia Continue current antibiotics , cultures negative to date --Acute exacerbation of COPD; Nebulizers tapering dose of steroids antibiotics and ventilatory support, pulmonary following --Hypertensive emergency off Cardene drip Her blood pressures are reasonable level, --Acute on chronic kidney disease stage III Gentle hydration closely monitor renal function and avoid nephrotoxic medications Nephrology following --leukocytosis; Trending down , C. difficile negative --2 diabetes mellitus; Accu-Chek sliding scale coverage and ADA diet and insulin as needed --Moderate to severe protein calorie malnutrition with albumin of 2.2 Nutritional supplements, tube feeding, supportive care --DVT prophylaxis with heparin --Full CODE STATUS Consults and recommendations noted and appreciated Closely monitor the patient and adjust the management. For PEG and Trach tomorrow Subjective Date of service: 09/19/16 Principal diagnosis: Acute resp failure Interval history: No interval change Objective - Constitutional Vitals: Vital Signs - 12hr 09/19/16 09/19/16 09/19/16 04:00 04:30 05:00 Temperature 98.4 F Pulse Rate 110 H 109 H 112 H Pulse Rate [ 97 H None] Respiratory 14 14 14 Rate Blood Pressure 121/67 121/67 129/66 O2 Sat by Pulse 100 100 Oximetry 09/19/16 09/19/16 09/19/16 05:30 06:00 06:20 Temperature Pulse Rate 108 H 110 H 110 H Pulse Rate [ None] Respiratory 13 14 Rate Blood Pressure 129/66 138/64 138/64 O2 Sat by Pulse 99 97 Oximetry 09/19/16 09/19/16 09/19/16 06:30 07:00 07:15 Temperature 97.5 F L Pulse Rate 107 H 107 H Pulse Rate [ None] Respiratory 15 14 Rate Blood Pressure 138/64 124/60 O2 Sat by Pulse 100 98 Oximetry 09/19/16 09/19/16 09/19/16 07:30 08:00 08:14 Temperature Pulse Rate 118 H 121 H 119 H Pulse Rate [ None] Respiratory 19 18 Rate Blood Pressure 124/60 124/60 155/72 O2 Sat by Pulse 100 100 100 Oximetry 09/19/16 09/19/16 09/19/16 08:23 08:30 09:00 Temperature Pulse Rate 119 H 119 H 116 H Pulse Rate [ None] Respiratory 16 14 13 Rate Blood Pressure 155/72 155/72 158/78 O2 Sat by Pulse 100 100 100 Oximetry 09/19/16 09/19/16 09/19/16 09:30 10:00 10:30 Temperature Pulse Rate 118 H 132 H 136 H Pulse Rate [ None] Respiratory 13 12 14 Rate Blood Pressure 158/78 158/78 109/48 O2 Sat by Pulse 100 99 99 Oximetry 09/19/16 09/19/16 09/19/16 11:00 11:02 11:15 Temperature Pulse Rate 133 H 131 H 129 H Pulse Rate [ None] Respiratory 14 10 L Rate Blood Pressure 95/56 109/48 95/56 O2 Sat by Pulse 97 98 Oximetry 09/19/16 09/19/16 09/19/16 11:57 12:00 12:10 Temperature 98.4 F Pulse Rate 104 H 105 H Pulse Rate [ None] Respiratory 15 Rate Blood Pressure 116/56 116/56 O2 Sat by Pulse 99 99 Oximetry 09/19/16 09/19/16 09/19/16 13:00 14:00 15:00 Temperature Pulse Rate 102 H 105 H 106 H Pulse Rate [ None] Respiratory 14 17 14 Rate Blood Pressure 128/62 122/64 131/66 O2 Sat by Pulse Oximetry 09/19/16 15:33 Temperature Pulse Rate 106 H Pulse Rate [ None] Respiratory Rate Blood Pressure 131/66 O2 Sat by Pulse 100 Oximetry General appearance: Present: no acute distress, well-nourished - EENT Eyes: PERRL, EOM intact ENT: hearing intact, clear oral mucosa Ears: bilateral: normal - Neck Neck: supple, normal ROM - Respiratory Respiratory effort: normal Respiratory: bilateral: CTA - Breasts Breasts: normal - Cardiovascular Rhythm: regular Heart Sounds: Present: S1 & S2. Absent: gallop, rub Extremities: pulses intact, No edema, normal color, Full ROM - Gastrointestinal General gastrointestinal: Present: soft, non-tender, non-distended, normal bowel sounds - Genitourinary Female genitourinary: normal - Integumentary Integumentary: clear, warm, dry - Musculoskeletal Musculoskeletal: 1, strength equal bilaterally - Neurologic Neurologic: moves all extremities - Psychiatric Psychiatric: memory intact, appropriate mood/affect, intact judgment & insight - Labs CBC & Chem 7: 09/20/16 04:10 09/20/16 04:10 Labs: Abnormal lab results 09/18/16 09/18/16 09/19/16 Range/Units 15:34 17:50 06:21 WBC (4.5-11.0) K/mm3 RBC (3.65-5.03) M/mm3 Hgb (10.1-14.3) gm/dl Hct (30.3-42.9) % MCH (28-32) pg RDW (13.2-15.2) % Lymph % (Auto) (13.4-35.0) % [place] % (Auto) (0.0-7.3) % [place] # (0.0-0.8) K/mm3 Seg Neutrophils % (40.0-70.0) % Seg Neutrophils # (1.8-7.7) K/mm3 POC ABG pCO2 25.7 L (35-45) POC ABG pO2 66 L (80-105) Chloride (98-107) mmol/L Carbon Dioxide (22-30) mmol/L BUN (7-17) mg/dL Creatinine (0.7-1.2) mg/dL Glucose (65-100) mg/dL POC Glucose 220 H 119 H (70-105) 09/19/16 09/19/16 09/19/16 Range/Units 09:50 09:50 11:25 WBC 17.1 H (4.5-11.0) K/mm3 RBC 3.49 L (3.65-5.03) M/mm3 Hgb 9.0 L (10.1-14.3) gm/dl Hct 28.1 L (30.3-42.9) % MCH 26 L (28-32) pg RDW 20.8 H (13.2-15.2) % Lymph % (Auto) 11.5 L (13.4-35.0) % [place] % (Auto) 7.5 H (0.0-7.3) % [place] # 1.3 H (0.0-0.8) K/mm3 Seg Neutrophils % 79.8 H (40.0-70.0) % Seg Neutrophils # 13.7 H (1.8-7.7) K/mm3 POC ABG pCO2 (35-45) POC ABG pO2 (80-105) Chloride 108.6 H (98-107) mmol/L Carbon Dioxide 15 L (22-30) mmol/L BUN 125 H (7-17) mg/dL Creatinine 4.1 H (0.7-1.2) mg/dL Glucose 124 H (65-100) mg/dL POC Glucose 160 H (70-105)
[2016-09-19] MEDS: fentaNYL DRIP Premix 2,000 MCG/100 ML BAG IV SCH (21:26)
[2016-09-20] MEDS: VANCOMYCIN PO FEEDTUBE SCH ×4 (00:02→18:20)
[2016-09-20] MEDS: HumuLIN R SUB-Q SCH ×4 (00:02→18:20)
[2016-09-20] MEDS: NACL 0.9% 1000 ML 1,000 ML IV SCH ×2 (00:03→13:01)
[2016-09-20] MEDS: LOPRESSOR PO SCH ×4 (00:05→18:20)
[2016-09-20 04:28] LABS: Hematocrit 25.5 % (30.3-42.9); Hemoglobin 8.2 gm/dl (10.1-14.3); Mean Corpuscular HGB Conc 32 % (30-34); Mean Corpuscular Volume 79 fl (79-97); Platelet Count 228 K/mm3 (140-440); Red Blood Count 3.21 M/mm3 (3.65-5.03)
[2016-09-20 04:32] LABS: Mean Corpuscular Hemoglobin 26 pg (28-32); Red Cell Distribution Width 20.9 % (13.2-15.2)
[2016-09-20 04:40] LABS: Calcium 8.2 mg/dL (8.4-10.2)
[2016-09-20 05:00] LABS: BUN/Creatinine Ratio 34.86
[2016-09-20] MEDS: FLAGYL 500 MG/100 ML 500 MG/100 ML BAG IV SCH ×3 (05:18→21:55)
[2016-09-20] MEDS: HEPARIN SUB-Q SCH ×4 (05:18→22:04)
[2016-09-20] MEDS: fentaNYL DRIP Premix 2,000 MCG/100 ML BAG IV SCH ×2 (05:37→16:32)
[2016-09-20] MEDS: DIPRIVAN 10 MG/ML 1,000 MG/100 ML BOTTLE IV SCH ×2 (05:38→16:33)
[2016-09-20] MEDS ORDERED: LOPRESSOR IV ONE ×3 (06:01→15:20)
--- NOTE | 2016-09-20 08:08 | Anesthesia Consultation ---
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 Son has POA & consented for procedure. Patient appears to be oriented, but has a limited ability to respond.
[2016-09-20] MEDS: SODIUM BICARBONATE PO SCH ×3 (08:35→21:53)
[2016-09-20] MEDS: DELTASONE PO SCH (09:00)
[2016-09-20] MEDS: LONITEN PO SCH (09:00)
[2016-09-20] MEDS: LEVEMIR (NF) SUB-Q SCH (09:29)
[2016-09-20] MEDS: PROTONIX PO SCH ×2 (09:29→22:06)
--- NOTE | 2016-09-20 11:42 | Progress Note ---
Assessment and Plan - Patient Problems (1) Acute respiratory failure with hypoxia Current Visit: Yes Status: Acute Plan to address problem: - continue aspiration precautions / address VAP bundles - continue to wean oxygen for MAP > 94% - continue bronchodilators and pulmonary toilet - will continue to taper systemic steroids (no active needs pulmonary-[place]) - completed empiric levaquin dosing - for tracheostomy today - resume weaning 24-48hours afterwards (2) Acute CVA (cerebrovascular accident) Current Visit: Yes Status: Acute Plan to address problem: - out of tpA window (initially stopped due to uncontrolled HTN) - Left MCA teritory stroke with some midline shift on last CT - seen by neurology and prognosis for recovery of mental status guarded to poor - optimizing secondary prevention modalities now (BP, lipid anti-platelet therapy) - will continue steroid taper (reduced to 20mg daily prednisone) (3) Hypertensive emergency Current Visit: Yes Status: Acute Plan to address problem: - resolved - continue clonidine patch at 0.3mg qweek - continue prn IV rescue labetalol - added metoprolol re: tachycardia also - started on minoxidil by nephrology - BP's better controlled overall (4) Obesity (BMI 35.0-39.9 without comorbidity) Current Visit: Yes Status: Chronic Plan to address problem: - adjust tube feeds per tube cutter's recommendations - supportive and preventive skin care re: breakdown - to resume tube feeds today - continue reglan re: high residuals (5) Type 2 diabetes mellitus Current Visit: Yes Status: Chronic Qualifiers: Diabetes mellitus complication status: D Diabetes mellitus complication detail: D Diabetic retinopathy severity: D Proliferative retinopathy type: P Diabetes mellitus macular edema: D Diabetes mellitus intermediate accountant insulin use : D Laterality: L Chronic kidney disease stage: C Plan to address problem: - continue SSI - continue lantus at 8 units sq q24h (6) Leukocytosis (leucocytosis) Current Visit: Yes Status: Acute Qualifiers: Leukocytosis type: leukemoid reaction Qualified Code(s): D72.823 - Leukemoid reaction Plan to address problem: - afebrile - ? leukemoid reaction - ? steroid leucocytosis - continue empiric levaquin - get CRP & lactate and trend - tapering systemic steroids - follow clinically - C-diff infection assay negative - ID consulted and on flagyl & vancomycin - WBC trending down - cultures NGTD (7) Discharge planning issues Current Visit: Yes Status: Acute Plan to address problem: - she remains critically ill on life sustaining interventions including MVS and at risk for further acute deterioration including .....for trach and PEG today ....LTAC thereafter ......30' CCT Subjective Date of service: 09/20/16 Principal diagnosis: Acute resp failure on MVS; S/P Acute CVA; Acute Encephalopathy Interval history: Seen and examined at bedside; 24 hour events reviewed; nursing and respiratory care staff consulted; no adverse overnight events reported to me; remains on MVS ; for tracheostomy and PEG placement today; AMS is persistent; will hold on weaning today; no new issues otherwise Objective Vital Signs - 12hr 09/19/16 09/20/16 09/20/16 23:50 00:00 00:05 Temperature 98.5 F Pulse Rate 117 H 115 H 114 H Pulse Rate [ 115 H From Monitor] Respiratory 15 Rate Blood Pressure 98/50 119/64 97/61 O2 Sat by Pulse 100 99 Oximetry 09/20/16 09/20/16 09/20/16 01:00 02:00 03:00 Temperature Pulse Rate 113 H 117 H 115 H Pulse Rate [ From Monitor] Respiratory 15 16 14 Rate Blood Pressure 103/56 128/72 111/63 O2 Sat by Pulse 100 Oximetry 09/20/16 09/20/16 09/20/16 03:47 04:00 04:30 Temperature 98.5 F Pulse Rate 114 H 115 H 117 H Pulse Rate [ 115 H From Monitor] Respiratory 15 15 Rate Blood Pressure 143/77 141/73 115/59 O2 Sat by Pulse 100 100 100 Oximetry 09/20/16 09/20/16 09/20/16 05:00 05:19 05:30 Temperature Pulse Rate 116 H 116 H 114 H Pulse Rate [ From Monitor] Respiratory 14 15 Rate Blood Pressure 125/64 125/64 O2 Sat by Pulse 100 100 Oximetry 09/20/16 09/20/16 09/20/16 05:38 06:00 06:11 Temperature Pulse Rate 121 H 122 H Pulse Rate [ From Monitor] Respiratory 14 14 Rate Blood Pressure 123/56 123/56 O2 Sat by Pulse Oximetry 09/20/16 09/20/16 09/20/16 06:30 07:00 07:30 Temperature Pulse Rate 115 H 111 H 117 H Pulse Rate [ From Monitor] Respiratory 15 14 16 Rate Blood Pressure 119/65 123/62 130/76 O2 Sat by Pulse 100 100 100 Oximetry 09/20/16 09/20/16 09/20/16 08:00 08:22 08:30 Temperature 99.1 F Pulse Rate 122 H 128 H 120 H Pulse Rate [ From Monitor] Respiratory 18 14 Rate Blood Pressure 122/68 122/68 116/59 O2 Sat by Pulse 100 100 Oximetry 09/20/16 09/20/16 09/20/16 09:00 09:30 11:01 Temperature Pulse Rate 126 H 138 H 137 H Pulse Rate [ From Monitor] Respiratory 17 15 Rate Blood Pressure 109/54 117/54 125/46 O2 Sat by Pulse 100 98 99 Oximetry Constitutional: no acute distress, agitated, other (encephalopathic) Eyes: non-icteric ENT: oropharynx moist Neck: supple, no lymphadenopathy Effort: normal Ascultation: Bilateral: diminished breath sounds, rhonchi Cardiovascular: regular rate and rhythm Gastrointestinal: normoactive bowel sounds, soft, non-tender, non-distended Integumentary: normal Extremities: no cyanosis, no edema, pulses normal, no ischemia or petechiae Neurologic: pupils equal and round, other (sedated) Psychiatric: other (unable to assess) CBC and BMP: 09/21/16 07:45 09/21/16 07:45 ABG, PT/INR, D-dimer: ABG POC ABG pH 7.387 (7.35-7.45) 09/18/16 15:34 POC ABG pCO2 25.7 (35-45) L 09/18/16 15:34 POC ABG pO2 66 (80-105) L 09/18/16 15:34 POC ABG HCO3 15.5 09/18/16 15:34 POC ABG Total CO2 16 09/18/16 15:34 POC ABG O2 Sat 93 09/18/16 15:34 PT/INR, D-dimer PT 13.8 Sec. (12.2-14.9) 09/15/16 05:00 INR 1.01 (0.87-1.13) 09/15/16 05:00 Abnormal lab findings: Abnormal Labs 09/03/16 09/03/16 09/03/16 12:12 15:07 16:20 WBC RBC Hgb Hct MCV MCH MCHC RDW Plt Count Lymph % (Auto) Falls % (Auto) Falls # Seg Neutrophils % Seg Neuts % (Manual) Lymphocytes % (Manual) Monocytes % (Manual) Seg Neutrophils # Seg Neutrophils # Man Lymphocytes # (Manual) Monocytes # (Manual) Fibrinogen dRVVT Confirm Interp Factor V Activity POC ABG pH 7.452 H POC ABG pCO2 POC ABG pO2 Sodium Potassium Chloride Carbon Dioxide BUN Creatinine Glucose POC Glucose 178 H Calcium Phosphorus 2.20 L Magnesium 1.60 L C-Reactive Protein Total Protein Albumin Triglycerides HDL Cholesterol Urine WBC (Auto) Urine Creatinine Urine Total Protein Rheumatoid Factor Complement C4 Crossmatch 09/03/16 09/03/16 09/03/16 17:57 17:58 23:50 WBC RBC Hgb Hct MCV MCH MCHC RDW Plt Count Lymph % (Auto) Falls % (Auto) Falls # Seg Neutrophils % Seg Neuts % (Manual) Lymphocytes % (Manual) Monocytes % (Manual) Seg Neutrophils # Seg Neutrophils # Man Lymphocytes # (Manual) Monocytes # (Manual) Fibrinogen dRVVT Confirm Interp Factor V Activity POC ABG pH POC ABG pCO2 POC ABG pO2 Sodium Potassium Chloride Carbon Dioxide BUN Creatinine Glucose POC Glucose 162 H 145 H Calcium Phosphorus 2.30 L Magnesium C-Reactive Protein Total Protein Albumin Triglycerides HDL Cholesterol Urine WBC (Auto) Urine Creatinine Urine Total Protein Rheumatoid Factor Complement C4 Crossmatch 09/04/16 09/04/16 09/04/16 03:31 03:31 05:42 WBC RBC Hgb 9.7 L D Hct MCV 72 L MCH 23 L MCHC RDW 17.5 H Plt Count Lymph % (Auto) 11.1 L Falls % (Auto) Falls # Seg Neutrophils % 84.3 H Seg Neuts % (Manual) Lymphocytes % (Manual) Monocytes % (Manual) Seg Neutrophils # 8.9 H Seg Neutrophils # Man Lymphocytes # (Manual) Monocytes # (Manual) Fibrinogen dRVVT Confirm Interp Factor V Activity POC ABG pH POC ABG pCO2 POC ABG pO2 Sodium 135 L Potassium 2.9 L* Chloride 97.2 L Carbon Dioxide 19 L BUN Creatinine 1.7 H Glucose 170 H POC Glucose 152 H Calcium Phosphorus Magnesium C-Reactive Protein Total Protein Albumin Triglycerides 160 H HDL Cholesterol 31 L Urine WBC (Auto) Urine Creatinine Urine Total Protein Rheumatoid Factor Complement C4 Crossmatch 09/04/16 09/04/16 09/04/16 11:34 17:46 23:29 WBC RBC Hgb Hct MCV MCH MCHC RDW Plt Count Lymph % (Auto) Falls % (Auto) Falls # Seg Neutrophils % Seg Neuts % (Manual) Lymphocytes % (Manual) Monocytes % (Manual) Seg Neutrophils # Seg Neutrophils # Man Lymphocytes # (Manual) Monocytes # (Manual) Fibrinogen dRVVT Confirm Interp Factor V Activity POC ABG pH POC ABG pCO2 POC ABG pO2 Sodium Potassium Chloride Carbon Dioxide BUN Creatinine Glucose POC Glucose 165 H 210 H 139 H Calcium Phosphorus Magnesium C-Reactive Protein Total Protein Albumin Triglycerides HDL Cholesterol Urine WBC (Auto) Urine Creatinine Urine Total Protein Rheumatoid Factor Complement C4 Crossmatch 09/05/16 09/05/16 09/05/16 04:05 04:05 05:38 WBC RBC Hgb Hct MCV 76 L D MCH 23 L MCHC RDW 17.8 H Plt Count Lymph % (Auto) Falls % (Auto) Falls # Seg Neutrophils % Seg Neuts % (Manual) Lymphocytes % (Manual) Monocytes % (Manual) Seg Neutrophils # Seg Neutrophils # Man Lymphocytes # (Manual) Monocytes # (Manual) Fibrinogen dRVVT Confirm Interp Factor V Activity POC ABG pH POC ABG pCO2 POC ABG pO2 Sodium 134 L Potassium Chloride Carbon Dioxide 18 L BUN Creatinine 1.8 H Glucose 192 H POC Glucose 175 H Calcium Phosphorus Magnesium C-Reactive Protein Total Protein Albumin Triglycerides HDL Cholesterol Urine WBC (Auto) Urine Creatinine Urine Total Protein Rheumatoid Factor Complement C4 Crossmatch 09/05/16 09/05/16 09/05/16 11:38 17:48 23:22 WBC RBC Hgb Hct MCV MCH MCHC RDW Plt Count Lymph % (Auto) Falls % (Auto) Falls # Seg Neutrophils % Seg Neuts % (Manual) Lymphocytes % (Manual) Monocytes % (Manual) Seg Neutrophils # Seg Neutrophils # Man Lymphocytes # (Manual) Monocytes # (Manual) Fibrinogen dRVVT Confirm Interp Factor V Activity POC ABG pH POC ABG pCO2 POC ABG pO2 Sodium Potassium Chloride Carbon Dioxide BUN Creatinine Glucose POC Glucose 164 H 186 H 195 H Calcium Phosphorus Magnesium C-Reactive Protein Total Protein Albumin Triglycerides HDL Cholesterol Urine WBC (Auto) Urine Creatinine Urine Total Protein Rheumatoid Factor Complement C4 Crossmatch 09/06/16 09/06/16 09/06/16 04:12 05:59 07:32 WBC RBC Hgb Hct MCV MCH MCHC RDW Plt Count Lymph % (Auto) Falls % (Auto) Falls # Seg Neutrophils % Seg Neuts % (Manual) Lymphocytes % (Manual) Monocytes % (Manual) Seg Neutrophils # Seg Neutrophils # Man Lymphocytes # (Manual) Monocytes # (Manual) Fibrinogen dRVVT Confirm Interp Factor V Activity POC ABG pH 7.514 H POC ABG pCO2 29.1 L POC ABG pO2 72 L Sodium 133 L Potassium 3.4 L Chloride 94.9 L Carbon Dioxide 19 L BUN 30 H Creatinine 2.1 H Glucose 139 H POC Glucose 146 H Calcium Phosphorus Magnesium C-Reactive Protein Total Protein Albumin Triglycerides HDL Cholesterol Urine WBC (Auto) Urine Creatinine Urine Total Protein Rheumatoid Factor Complement C4 Crossmatch 09/06/16 09/06/16 09/06/16 11:57 17:58 19:02 WBC RBC Hgb Hct MCV MCH MCHC RDW Plt Count Lymph % (Auto) Falls % (Auto) Falls # Seg Neutrophils % Seg Neuts % (Manual) Lymphocytes % (Manual) Monocytes % (Manual) Seg Neutrophils # Seg Neutrophils # Man Lymphocytes # (Manual) Monocytes # (Manual) Fibrinogen dRVVT Confirm Interp Factor V Activity POC ABG pH 7.465 H POC ABG pCO2 32.0 L POC ABG pO2 Sodium Potassium Chloride Carbon Dioxide BUN Creatinine Glucose POC Glucose 165 H 160 H Calcium Phosphorus Magnesium C-Reactive Protein Total Protein Albumin Triglycerides HDL Cholesterol Urine WBC (Auto) Urine Creatinine Urine Total Protein Rheumatoid Factor Complement C4 Crossmatch 09/06/16 09/07/16 09/07/16 23:45 02:47 02:47 WBC RBC Hgb Hct MCV MCH MCHC RDW Plt Count Lymph % (Auto) Falls % (Auto) Falls # Seg Neutrophils % Seg Neuts % (Manual) Lymphocytes % (Manual) Monocytes % (Manual) Seg Neutrophils # Seg Neutrophils # Man Lymphocytes # (Manual) Monocytes # (Manual) Fibrinogen dRVVT Confirm Interp Factor V Activity POC ABG pH POC ABG pCO2 POC ABG pO2 Sodium Potassium Chloride Carbon Dioxide BUN Creatinine Glucose POC Glucose 204 H Calcium Phosphorus Magnesium C-Reactive Protein Total Protein Albumin Triglycerides HDL Cholesterol Urine WBC (Auto) 68.0 H Urine Creatinine 106.1 H Urine Total Protein Rheumatoid Factor Complement C4 Crossmatch 09/07/16 09/07/16 09/07/16 04:50 06:19 06:39 WBC RBC Hgb Hct MCV MCH MCHC RDW Plt Count Lymph % (Auto) Falls % (Auto) Falls # Seg Neutrophils % Seg Neuts % (Manual) Lymphocytes % (Manual) Monocytes % (Manual) Seg Neutrophils # Seg Neutrophils # Man Lymphocytes # (Manual) Monocytes # (Manual) Fibrinogen dRVVT Confirm Interp Factor V Activity POC ABG pH 7.457 H POC ABG pCO2 32.1 L POC ABG pO2 76 L Sodium 132 L Potassium Chloride 94.7 L Carbon Dioxide BUN 53 H Creatinine 2.9 H Glucose 151 H POC Glucose 149 H Calcium Phosphorus Magnesium C-Reactive Protein Total Protein Albumin Triglycerides HDL Cholesterol Urine WBC (Auto) Urine Creatinine Urine Total Protein Rheumatoid Factor Complement C4 Crossmatch 09/07/16 09/07/16 09/07/16 09:20 11:43 11:43 WBC 19.4 H RBC Hgb 8.3 L Hct 26.4 L D MCV 72 L D MCH 22 L MCHC RDW 17.9 H Plt Count Lymph % (Auto) 8.5 L Falls % (Auto) Falls # 1.0 H Seg Neutrophils % 85.8 H Seg Neuts % (Manual) Lymphocytes % (Manual) Monocytes % (Manual) Seg Neutrophils # 16.6 H Seg Neutrophils # Man Lymphocytes # (Manual) Monocytes # (Manual) Fibrinogen dRVVT Confirm Interp Factor V Activity POC ABG pH POC ABG pCO2 POC ABG pO2 Sodium 134 L Potassium Chloride 97.2 L Carbon Dioxide 20 L BUN 58 H Creatinine 2.9 H Glucose 147 H POC Glucose Calcium Phosphorus 2.40 L Magnesium 2.40 H C-Reactive Protein Total Protein 5.8 L Albumin 2.2 L Triglycerides HDL Cholesterol Urine WBC (Auto) Urine Creatinine Urine Total Protein Rheumatoid Factor Complement C4 58 H Crossmatch 09/07/16 09/07/16 09/07/16 11:50 16:00 17:31 WBC RBC Hgb Hct MCV MCH MCHC RDW Plt Count Lymph % (Auto) Falls % (Auto) Falls # Seg Neutrophils % Seg Neuts % (Manual) Lymphocytes % (Manual) Monocytes % (Manual) Seg Neutrophils # Seg Neutrophils # Man Lymphocytes # (Manual) Monocytes # (Manual) Fibrinogen dRVVT Confirm Interp Factor V Activity POC ABG pH POC ABG pCO2 POC ABG pO2 158 H Sodium Potassium Chloride Carbon Dioxide BUN Creatinine Glucose POC Glucose 175 H Calcium Phosphorus Magnesium C-Reactive Protein Total Protein Albumin Triglycerides HDL Cholesterol Urine WBC (Auto) Urine Creatinine 66.3 H Urine Total Protein Rheumatoid Factor Complement C4 Crossmatch 09/07/16 09/08/16 09/08/16 23:50 05:46 06:18 WBC 17.8 H RBC 3.58 L Hgb 8.1 L Hct 25.5 L MCV 71 L MCH 23 L MCHC RDW 18.4 H Plt Count Lymph % (Auto) Falls % (Auto) Falls # Seg Neutrophils % Seg Neuts % (Manual) 92.0 H Lymphocytes % (Manual) 6.0 L Monocytes % (Manual) Seg Neutrophils # Seg Neutrophils # Man 16.4 H Lymphocytes # (Manual) 1.1 L Monocytes # (Manual) Fibrinogen dRVVT Confirm Interp Factor V Activity POC ABG pH POC ABG pCO2 34.3 L POC ABG pO2 71 L Sodium Potassium Chloride Carbon Dioxide BUN Creatinine Glucose POC Glucose 216 H Calcium Phosphorus Magnesium C-Reactive Protein Total Protein Albumin Triglycerides HDL Cholesterol Urine WBC (Auto) Urine Creatinine Urine Total Protein Rheumatoid Factor Complement C4 Crossmatch 09/08/16 09/08/16 09/08/16 06:18 06:51 10:55 WBC RBC Hgb Hct MCV MCH MCHC RDW Plt Count Lymph % (Auto) Falls % (Auto) Falls # Seg Neutrophils % Seg Neuts % (Manual) Lymphocytes % (Manual) Monocytes % (Manual) Seg Neutrophils # Seg Neutrophils # Man Lymphocytes # (Manual) Monocytes # (Manual) Fibrinogen dRVVT Confirm Interp Factor V Activity POC ABG pH POC ABG pCO2 POC ABG pO2 Sodium 133 L Potassium Chloride 96.9 L Carbon Dioxide 20 L BUN 63 H Creatinine 2.7 H Glucose 195 H POC Glucose 204 H 169 H Calcium Phosphorus Magnesium C-Reactive Protein Total Protein Albumin Triglycerides HDL Cholesterol Urine WBC (Auto) Urine Creatinine Urine Total Protein Rheumatoid Factor Complement C4 Crossmatch 09/08/16 09/08/16 09/08/16 11:48 11:48 11:48 WBC RBC Hgb Hct MCV MCH MCHC RDW Plt Count Lymph % (Auto) Falls % (Auto) Falls # Seg Neutrophils % Seg Neuts % (Manual) Lymphocytes % (Manual) Monocytes % (Manual) Seg Neutrophils # Seg Neutrophils # Man Lymphocytes # (Manual) Monocytes # (Manual) Fibrinogen 750 H dRVVT Confirm Interp Factor V Activity POC ABG pH POC ABG pCO2 POC ABG pO2 Sodium Potassium Chloride Carbon Dioxide BUN Creatinine Glucose POC Glucose Calcium Phosphorus Magnesium C-Reactive Protein 15.70 H Total Protein Albumin Triglycerides HDL Cholesterol Urine WBC (Auto) Urine Creatinine Urine Total Protein Rheumatoid Factor 24 H Complement C4 Crossmatch 09/08/16 09/08/16 09/09/16 15:35 18:25 00:24 WBC RBC Hgb Hct MCV MCH MCHC RDW Plt Count Lymph % (Auto) Falls % (Auto) Falls # Seg Neutrophils % Seg Neuts % (Manual) Lymphocytes % (Manual) Monocytes % (Manual) Seg Neutrophils # Seg Neutrophils # Man Lymphocytes # (Manual) Monocytes # (Manual) Fibrinogen dRVVT Confirm Interp Factor V Activity 182 H POC ABG pH POC ABG pCO2 POC ABG pO2 Sodium Potassium Chloride Carbon Dioxide BUN Creatinine Glucose POC Glucose 184 H 216 H Calcium Phosphorus Magnesium C-Reactive Protein Total Protein Albumin Triglycerides HDL Cholesterol Urine WBC (Auto) Urine Creatinine Urine Total Protein Rheumatoid Factor Complement C4 Crossmatch 09/09/16 09/09/16 09/09/16 03:00 03:00 04:04 WBC 27.9 H RBC Hgb 8.7 L Hct 28.1 L MCV 72 L MCH 22 L MCHC RDW 18.4 H Plt Count 485 H Lymph % (Auto) Falls % (Auto) Falls # Seg Neutrophils % Seg Neuts % (Manual) 77.0 H Lymphocytes % (Manual) 9.0 L Monocytes % (Manual) Seg Neutrophils # Seg Neutrophils # Man 21.5 H Lymphocytes # (Manual) Monocytes # (Manual) 2.0 H Fibrinogen dRVVT Confirm Interp Factor V Activity POC ABG pH POC ABG pCO2 POC ABG pO2 121 H Sodium 135 L Potassium Chloride 96.3 L Carbon Dioxide 21 L BUN 83 H Creatinine 3.0 H Glucose 135 H POC Glucose Calcium Phosphorus Magnesium C-Reactive Protein Total Protein Albumin Triglycerides HDL Cholesterol Urine WBC (Auto) Urine Creatinine Urine Total Protein Rheumatoid Factor Complement C4 Crossmatch 09/09/16 09/09/16 09/09/16 05:41 11:55 14:13 WBC RBC Hgb Hct MCV MCH MCHC RDW Plt Count Lymph % (Auto) Falls % (Auto) Falls # Seg Neutrophils % Seg Neuts % (Manual) Lymphocytes % (Manual) Monocytes % (Manual) Seg Neutrophils # Seg Neutrophils # Man Lymphocytes # (Manual) Monocytes # (Manual) Fibrinogen dRVVT Confirm Interp Factor V Activity POC ABG pH POC ABG pCO2 POC ABG pO2 Sodium Potassium Chloride Carbon Dioxide BUN Creatinine Glucose POC Glucose 155 H 186 H Calcium Phosphorus Magnesium C-Reactive Protein Total Protein Albumin Triglycerides HDL Cholesterol Urine WBC (Auto) 25.0 H Urine Creatinine Urine Total Protein Rheumatoid Factor Complement C4 Crossmatch 09/09/16 09/09/16 09/10/16 17:33 23:13 05:09 WBC RBC Hgb Hct MCV MCH MCHC RDW Plt Count Lymph % (Auto) Falls % (Auto) Falls # Seg Neutrophils % Seg Neuts % (Manual) Lymphocytes % (Manual) Monocytes % (Manual) Seg Neutrophils # Seg Neutrophils # Man Lymphocytes # (Manual) Monocytes # (Manual) Fibrinogen dRVVT Confirm Interp Factor V Activity POC ABG pH POC ABG pCO2 POC ABG pO2 74 L Sodium Potassium Chloride Carbon Dioxide BUN Creatinine Glucose POC Glucose 211 H 215 H Calcium Phosphorus Magnesium C-Reactive Protein Total Protein Albumin Triglycerides HDL Cholesterol Urine WBC (Auto) Urine Creatinine Urine Total Protein Rheumatoid Factor Complement C4 Crossmatch 09/10/16 09/10/16 09/10/16 05:17 05:17 11:31 WBC 15.8 H RBC 3.25 L Hgb 7.3 L Hct 22.9 L MCV 71 L MCH 23 L MCHC RDW 18.4 H Plt Count Lymph % (Auto) Falls % (Auto) Falls # Seg Neutrophils % Seg Neuts % (Manual) 91.0 H Lymphocytes % (Manual) 4.0 L Monocytes % (Manual) Seg Neutrophils # Seg Neutrophils # Man 14.4 H Lymphocytes # (Manual) 0.6 L Monocytes # (Manual) Fibrinogen dRVVT Confirm Interp Factor V Activity POC ABG pH POC ABG pCO2 POC ABG pO2 Sodium Potassium Chloride Carbon Dioxide 21 L BUN 93 H Creatinine 2.9 H Glucose 146 H POC Glucose 188 H Calcium 8.1 L Phosphorus Magnesium C-Reactive Protein Total Protein Albumin Triglycerides HDL Cholesterol Urine WBC (Auto) Urine Creatinine Urine Total Protein Rheumatoid Factor Complement C4 Crossmatch 09/10/16 09/10/16 09/10/16 13:17 17:20 23:32 WBC RBC Hgb Hct MCV MCH MCHC RDW Plt Count Lymph % (Auto) Falls % (Auto) Falls # Seg Neutrophils % Seg Neuts % (Manual) Lymphocytes % (Manual) Monocytes % (Manual) Seg Neutrophils # Seg Neutrophils # Man Lymphocytes # (Manual) Monocytes # (Manual) Fibrinogen dRVVT Confirm Interp Factor V Activity POC ABG pH POC ABG pCO2 POC ABG pO2 Sodium Potassium Chloride Carbon Dioxide BUN Creatinine Glucose POC Glucose 199 H 186 H Calcium Phosphorus Magnesium C-Reactive Protein Total Protein Albumin Triglycerides HDL Cholesterol Urine WBC (Auto) Urine Creatinine Urine Total Protein Rheumatoid Factor Complement C4 Crossmatch See Detail 09/11/16 09/11/16 09/11/16 05:10 05:10 05:17 WBC 28.4 H RBC Hgb 9.2 L Hct 29.3 L D MCV 73 L MCH 23 L MCHC RDW 18.9 H Plt Count 452 H Lymph % (Auto) Falls % (Auto) Falls # Seg Neutrophils % Seg Neuts % (Manual) 89.5 H Lymphocytes % (Manual) 2.0 L Monocytes % (Manual) Seg Neutrophils # Seg Neutrophils # Man 25.4 H Lymphocytes # (Manual) 0.6 L Monocytes # (Manual) 1.3 H Fibrinogen dRVVT Confirm Interp Factor V Activity POC ABG pH POC ABG pCO2 POC ABG pO2 Sodium 136 L Potassium Chloride Carbon Dioxide 18 L BUN 107 H Creatinine 2.6 H Glucose 187 H POC Glucose 230 H Calcium 8.3 L Phosphorus Magnesium C-Reactive Protein Total Protein Albumin Triglycerides HDL Cholesterol Urine WBC (Auto) Urine Creatinine Urine Total Protein Rheumatoid Factor Complement C4 Crossmatch 09/11/16 09/11/16 09/11/16 05:55 12:02 17:32 WBC RBC Hgb Hct MCV MCH MCHC RDW Plt Count Lymph % (Auto) Falls % (Auto) Falls # Seg Neutrophils % Seg Neuts % (Manual) Lymphocytes % (Manual) Monocytes % (Manual) Seg Neutrophils # Seg Neutrophils # Man Lymphocytes # (Manual) Monocytes # (Manual) Fibrinogen dRVVT Confirm Interp Factor V Activity POC ABG pH POC ABG pCO2 33.8 L POC ABG pO2 Sodium Potassium Chloride Carbon Dioxide BUN Creatinine Glucose POC Glucose 191 H 239 H Calcium Phosphorus Magnesium C-Reactive Protein Total Protein Albumin Triglycerides HDL Cholesterol Urine WBC (Auto) Urine Creatinine Urine Total Protein Rheumatoid Factor Complement C4 Crossmatch 09/11/16 09/12/16 09/12/16 23:52 05:09 05:32 WBC RBC Hgb Hct MCV MCH MCHC RDW Plt Count Lymph % (Auto) Falls % (Auto) Falls # Seg Neutrophils % Seg Neuts % (Manual) Lymphocytes % (Manual) Monocytes % (Manual) Seg Neutrophils # Seg Neutrophils # Man Lymphocytes # (Manual) Monocytes # (Manual) Fibrinogen dRVVT Confirm Interp Factor V Activity POC ABG pH POC ABG pCO2 34.6 L POC ABG pO2 Sodium Potassium Chloride Carbon Dioxide BUN Creatinine Glucose POC Glucose 265 H 184 H Calcium Phosphorus Magnesium C-Reactive Protein Total Protein Albumin Triglycerides HDL Cholesterol Urine WBC (Auto) Urine Creatinine Urine Total Protein Rheumatoid Factor Complement C4 Crossmatch 09/12/16 09/12/16 09/12/16 06:45 06:45 07:22 WBC 31.7 H RBC 3.54 L Hgb 8.3 L Hct 25.9 L MCV 73 L MCH 23 L MCHC RDW 18.9 H Plt Count Lymph % (Auto) Falls % (Auto) Falls # Seg Neutrophils % Seg Neuts % (Manual) 88.5 H Lymphocytes % (Manual) 4.5 L Monocytes % (Manual) Seg Neutrophils # Seg Neutrophils # Man 28.1 H Lymphocytes # (Manual) Monocytes # (Manual) 1.0 H Fibrinogen dRVVT Confirm Interp Factor V Activity POC ABG pH POC ABG pCO2 POC ABG pO2 Sodium Potassium Chloride Carbon Dioxide 20 L BUN 115 H Creatinine 2.7 H Glucose 165 H POC Glucose Calcium 8.0 L Phosphorus Magnesium C-Reactive Protein Total Protein Albumin Triglycerides 217 H HDL Cholesterol Urine WBC (Auto) Urine Creatinine Urine Total Protein Rheumatoid Factor Complement C4 Crossmatch 09/12/16 09/12/16 09/12/16 07:22 09:59 12:21 WBC RBC Hgb Hct MCV MCH MCHC RDW Plt Count Lymph % (Auto) Falls % (Auto) Falls # Seg Neutrophils % Seg Neuts % (Manual) Lymphocytes % (Manual) Monocytes % (Manual) Seg Neutrophils # Seg Neutrophils # Man Lymphocytes # (Manual) Monocytes # (Manual) Fibrinogen dRVVT Confirm Interp Positive H Factor V Activity POC ABG pH POC ABG pCO2 POC ABG pO2 Sodium Potassium Chloride Carbon Dioxide BUN Creatinine Glucose POC Glucose 224 H Calcium Phosphorus Magnesium C-Reactive Protein 1.70 H Total Protein Albumin Triglycerides HDL Cholesterol Urine WBC (Auto) Urine Creatinine Urine Total Protein Rheumatoid Factor Complement C4 Crossmatch 09/12/16 09/12/16 09/13/16 16:51 23:28 04:00 WBC 45.0 H* RBC Hgb 9.4 L Hct MCV 75 L MCH 23 L MCHC RDW 19.0 H Plt Count 470 H Lymph % (Auto) Falls % (Auto) Falls # Seg Neutrophils % Seg Neuts % (Manual) 89.0 H Lymphocytes % (Manual) 5.0 L Monocytes % (Manual) Seg Neutrophils # Seg Neutrophils # Man 40.1 H Lymphocytes # (Manual) Monocytes # (Manual) Fibrinogen dRVVT Confirm Interp Factor V Activity POC ABG pH POC ABG pCO2 POC ABG pO2 Sodium Potassium Chloride Carbon Dioxide BUN Creatinine Glucose POC Glucose 169 H 150 H Calcium Phosphorus Magnesium C-Reactive Protein Total Protein Albumin Triglycerides HDL Cholesterol Urine WBC (Auto) Urine Creatinine Urine Total Protein Rheumatoid Factor Complement C4 Crossmatch 09/13/16 09/13/16 09/13/16 04:00 11:26 17:31 WBC RBC Hgb Hct MCV MCH MCHC RDW Plt Count Lymph % (Auto) Falls % (Auto) Falls # Seg Neutrophils % Seg Neuts % (Manual) Lymphocytes % (Manual) Monocytes % (Manual) Seg Neutrophils # Seg Neutrophils # Man Lymphocytes # (Manual) Monocytes # (Manual) Fibrinogen dRVVT Confirm Interp Factor V Activity POC ABG pH POC ABG pCO2 POC ABG pO2 Sodium Potassium Chloride Carbon Dioxide 20 L BUN 116 H Creatinine 3.0 H Glucose 172 H POC Glucose 140 H 183 H Calcium Phosphorus Magnesium C-Reactive Protein Total Protein 6.2 L Albumin 2.9 L Triglycerides HDL Cholesterol Urine WBC (Auto) Urine Creatinine Urine Total Protein Rheumatoid Factor Complement C4 Crossmatch 09/13/16 09/14/16 09/14/16 23:23 04:06 04:07 WBC 29.4 H RBC Hgb 8.9 L Hct 27.3 L MCV 75 L MCH 24 L MCHC RDW 19.1 H Plt Count Lymph % (Auto) Falls % (Auto) Falls # Seg Neutrophils % Seg Neuts % (Manual) 84.0 H Lymphocytes % (Manual) 6.0 L Monocytes % (Manual) 9.0 H Seg Neutrophils # Seg Neutrophils # Man 24.7 H Lymphocytes # (Manual) Monocytes # (Manual) 2.6 H Fibrinogen dRVVT Confirm Interp Factor V Activity POC ABG pH 7.342 L POC ABG pCO2 POC ABG pO2 116 H Sodium Potassium Chloride Carbon Dioxide BUN Creatinine Glucose POC Glucose 154 H Calcium Phosphorus Magnesium C-Reactive Protein Total Protein Albumin Triglycerides HDL Cholesterol Urine WBC (Auto) Urine Creatinine Urine Total Protein Rheumatoid Factor Complement C4 Crossmatch 09/14/16 09/14/16 09/14/16 04:07 05:29 12:19 WBC RBC Hgb Hct MCV MCH MCHC RDW Plt Count Lymph % (Auto) Falls % (Auto) Falls # Seg Neutrophils % Seg Neuts % (Manual) Lymphocytes % (Manual) Monocytes % (Manual) Seg Neutrophils # Seg Neutrophils # Man Lymphocytes # (Manual) Monocytes # (Manual) Fibrinogen dRVVT Confirm Interp Factor V Activity POC ABG pH POC ABG pCO2 POC ABG pO2 Sodium 136 L Potassium Chloride Carbon Dioxide 18 L BUN 121 H Creatinine 2.8 H Glucose 214 H POC Glucose 239 H 181 H Calcium Phosphorus Magnesium C-Reactive Protein Total Protein Albumin Triglycerides HDL Cholesterol Urine WBC (Auto) Urine Creatinine Urine Total Protein Rheumatoid Factor Complement C4 Crossmatch 09/14/16 09/14/16 09/15/16 18:12 23:37 05:00 WBC 26.1 H RBC 3.05 L Hgb 7.2 L Hct 22.9 L MCV 75 L MCH 24 L MCHC RDW 19.0 H Plt Count Lymph % (Auto) Falls % (Auto) Falls # Seg Neutrophils % Seg Neuts % (Manual) Lymphocytes % (Manual) Monocytes % (Manual) Seg Neutrophils # Seg Neutrophils # Man Lymphocytes # (Manual) Monocytes # (Manual) Fibrinogen dRVVT Confirm Interp Factor V Activity POC ABG pH POC ABG pCO2 POC ABG pO2 Sodium Potassium Chloride Carbon Dioxide BUN Creatinine Glucose POC Glucose 266 H 154 H Calcium Phosphorus Magnesium C-Reactive Protein Total Protein Albumin Triglycerides HDL Cholesterol Urine WBC (Auto) Urine Creatinine Urine Total Protein Rheumatoid Factor Complement C4 Crossmatch 09/15/16 09/15/16 09/15/16 05:00 05:17 12:45 WBC RBC Hgb Hct MCV MCH MCHC RDW Plt Count Lymph % (Auto) Falls % (Auto) Falls # Seg Neutrophils % Seg Neuts % (Manual) Lymphocytes % (Manual) Monocytes % (Manual) Seg Neutrophils # Seg Neutrophils # Man Lymphocytes # (Manual) Monocytes # (Manual) Fibrinogen dRVVT Confirm Interp Factor V Activity POC ABG pH POC ABG pCO2 POC ABG pO2 Sodium Potassium 5.2 H Chloride Carbon Dioxide 18 L BUN 139 H Creatinine 3.7 H Glucose 227 H POC Glucose 226 H 244 H Calcium 8.3 L Phosphorus Magnesium C-Reactive Protein Total Protein Albumin Triglycerides HDL Cholesterol Urine WBC (Auto) Urine Creatinine Urine Total Protein Rheumatoid Factor Complement C4 Crossmatch 0709/15/16 09/15/16 14:32 17:33 23:35 WBC RBC Hgb Hct MCV MCH MCHC RDW Plt Count Lymph % (Auto) Falls % (Auto) Falls # Seg Neutrophils % Seg Neuts % (Manual) Lymphocytes % (Manual) Monocytes % (Manual) Seg Neutrophils # Seg Neutrophils # Man Lymphocytes # (Manual) Monocytes # (Manual) Fibrinogen dRVVT Confirm Interp Factor V Activity POC ABG pH POC ABG pCO2 27.7 L POC ABG pO2 120 H Sodium Potassium Chloride Carbon Dioxide BUN Creatinine Glucose POC Glucose 232 H 167 H Calcium Phosphorus Magnesium C-Reactive Protein Total Protein Albumin Triglycerides HDL Cholesterol Urine WBC (Auto) Urine Creatinine Urine Total Protein Rheumatoid Factor Complement C4 Crossmatch 09/16/16 09/16/16 09/16/16 03:58 10:27 10:27 WBC 19.0 H RBC 2.77 L Hgb 6.5 L Hct 20.9 L MCV 76 L MCH 23 L MCHC RDW 19.3 H Plt Count Lymph % (Auto) 11.0 L Falls % (Auto) Falls # 1.1 H Seg Neutrophils % 82.5 H Seg Neuts % (Manual) Lymphocytes % (Manual) Monocytes % (Manual) Seg Neutrophils # 15.7 H Seg Neutrophils # Man Lymphocytes # (Manual) Monocytes # (Manual) Fibrinogen dRVVT Confirm Interp Factor V Activity POC ABG pH POC ABG pCO2 POC ABG pO2 Sodium Potassium Chloride 109.3 H Carbon Dioxide 18 L BUN 139 H Creatinine 4.1 H Glucose 144 H POC Glucose 146 H Calcium 8.1 L Phosphorus Magnesium C-Reactive Protein Total Protein Albumin Triglycerides HDL Cholesterol Urine WBC (Auto) Urine Creatinine Urine Total Protein Rheumatoid Factor Complement C4 Crossmatch 09/16/16 09/16/16 09/16/16 12:04 12:10 13:55 WBC RBC Hgb Hct MCV MCH MCHC RDW Plt Count Lymph % (Auto) Falls % (Auto) Falls # Seg Neutrophils % Seg Neuts % (Manual) Lymphocytes % (Manual) Monocytes % (Manual) Seg Neutrophils # Seg Neutrophils # Man Lymphocytes # (Manual) Monocytes # (Manual) Fibrinogen dRVVT Confirm Interp Factor V Activity POC ABG pH POC ABG pCO2 32.9 L POC ABG pO2 Sodium Potassium Chloride Carbon Dioxide BUN Creatinine Glucose POC Glucose 185 H Calcium Phosphorus Magnesium C-Reactive Protein Total Protein Albumin Triglycerides HDL Cholesterol Urine WBC (Auto) Urine Creatinine Urine Total Protein Rheumatoid Factor Complement C4 Crossmatch See Detail 09/16/16 09/16/16 09/16/16 17:55 19:19 23:48 WBC RBC Hgb Hct MCV MCH MCHC RDW Plt Count Lymph % (Auto) Falls % (Auto) Falls # Seg Neutrophils % Seg Neuts % (Manual) Lymphocytes % (Manual) Monocytes % (Manual) Seg Neutrophils # Seg Neutrophils # Man Lymphocytes # (Manual) Monocytes # (Manual) Fibrinogen dRVVT Confirm Interp Factor V Activity POC ABG pH POC ABG pCO2 POC ABG pO2 Sodium Potassium Chloride Carbon Dioxide BUN Creatinine Glucose POC Glucose 222 H 107 H Calcium Phosphorus Magnesium C-Reactive Protein Total Protein Albumin Triglycerides HDL Cholesterol Urine WBC (Auto) Urine Creatinine 47.4 H Urine Total Protein 16 H Rheumatoid Factor Complement C4 Crossmatch 09/17/16 09/17/16 09/17/16 03:45 03:45 04:55 WBC 19.6 H RBC 3.41 L Hgb 8.5 L Hct 26.7 L MCV 78 L MCH 25 L MCHC RDW 19.9 H Plt Count Lymph % (Auto) 9.3 L Falls % (Auto) Falls # 1.2 H Seg Neutrophils % 83.9 H Seg Neuts % (Manual) Lymphocytes % (Manual) Monocytes % (Manual) Seg Neutrophils # 16.4 H Seg Neutrophils # Man Lymphocytes # (Manual) Monocytes # (Manual) Fibrinogen dRVVT Confirm Interp Factor V Activity POC ABG pH POC ABG pCO2 POC ABG pO2 Sodium 146 H Potassium 5.1 H Chloride 110.9 H Carbon Dioxide 16 L BUN 146 H Creatinine 4.0 H Glucose 108 H POC Glucose 133 H Calcium Phosphorus Magnesium 3.00 H C-Reactive Protein Total Protein Albumin Triglycerides HDL Cholesterol Urine WBC (Auto) Urine Creatinine Urine Total Protein Rheumatoid Factor Complement C4 Crossmatch 09/17/16 09/17/16 09/17/16 11:15 17:33 23:47 WBC RBC Hgb Hct MCV MCH MCHC RDW Plt Count Lymph % (Auto) Falls % (Auto) Falls # Seg Neutrophils % Seg Neuts % (Manual) Lymphocytes % (Manual) Monocytes % (Manual) Seg Neutrophils # Seg Neutrophils # Man Lymphocytes # (Manual) Monocytes # (Manual) Fibrinogen dRVVT Confirm Interp Factor V Activity POC ABG pH POC ABG pCO2 POC ABG pO2 Sodium Potassium Chloride Carbon Dioxide BUN Creatinine Glucose POC Glucose 176 H 246 H 148 H Calcium Phosphorus Magnesium C-Reactive Protein Total Protein Albumin Triglycerides HDL Cholesterol Urine WBC (Auto) Urine Creatinine Urine Total Protein Rheumatoid Factor Complement C4 Crossmatch 09/18/16 09/18/16 09/18/16 05:33 08:31 08:31 WBC 18.0 H RBC 3.17 L Hgb 9.0 L Hct 25.7 L MCV MCH MCHC 35 H RDW 20.4 H Plt Count Lymph % (Auto) Falls % (Auto) Falls # Seg Neutrophils % Seg Neuts % (Manual) Lymphocytes % (Manual) Monocytes % (Manual) Seg Neutrophils # Seg Neutrophils # Man Lymphocytes # (Manual) Monocytes # (Manual) Fibrinogen dRVVT Confirm Interp Factor V Activity POC ABG pH POC ABG pCO2 POC ABG pO2 Sodium Potassium Chloride Carbon Dioxide 15 L BUN 124 H Creatinine 3.8 H Glucose POC Glucose 120 H Calcium 8.1 L Phosphorus Magnesium C-Reactive Protein Total Protein Albumin Triglycerides HDL Cholesterol Urine WBC (Auto) Urine Creatinine Urine Total Protein Rheumatoid Factor Complement C4 Crossmatch 09/18/16 09/18/16 09/18/16 12:03 15:34 17:50 WBC RBC Hgb Hct MCV MCH MCHC RDW Plt Count Lymph % (Auto) Falls % (Auto) Falls # Seg Neutrophils % Seg Neuts % (Manual) Lymphocytes % (Manual) Monocytes % (Manual) Seg Neutrophils # Seg Neutrophils # Man Lymphocytes # (Manual) Monocytes # (Manual) Fibrinogen dRVVT Confirm Interp Factor V Activity POC ABG pH POC ABG pCO2 25.7 L POC ABG pO2 66 L Sodium Potassium Chloride Carbon Dioxide BUN Creatinine Glucose POC Glucose 156 H 220 H Calcium Phosphorus Magnesium C-Reactive Protein Total Protein Albumin Triglycerides HDL Cholesterol Urine WBC (Auto) Urine Creatinine Urine Total Protein Rheumatoid Factor Complement C4 Crossmatch 09/19/16 09/19/16 09/19/16 06:21 09:50 09:50 WBC 17.1 H RBC 3.49 L Hgb 9.0 L Hct 28.1 L MCV MCH 26 L MCHC RDW 20.8 H Plt Count Lymph % (Auto) 11.5 L Falls % (Auto) 7.5 H Falls # 1.3 H Seg Neutrophils % 79.8 H Seg Neuts % (Manual) Lymphocytes % (Manual) Monocytes % (Manual) Seg Neutrophils # 13.7 H Seg Neutrophils # Man Lymphocytes # (Manual) Monocytes # (Manual) Fibrinogen dRVVT Confirm Interp Factor V Activity POC ABG pH POC ABG pCO2 POC ABG pO2 Sodium Potassium Chloride 108.6 H Carbon Dioxide 15 L BUN 125 H Creatinine 4.1 H Glucose 124 H POC Glucose 119 H Calcium Phosphorus Magnesium C-Reactive Protein Total Protein Albumin Triglycerides HDL Cholesterol Urine WBC (Auto) Urine Creatinine Urine Total Protein Rheumatoid Factor Complement C4 Crossmatch 09/19/16 09/19/16 09/19/16 11:25 17:53 23:36 WBC RBC Hgb Hct MCV MCH MCHC RDW Plt Count Lymph % (Auto) Falls % (Auto) Falls # Seg Neutrophils % Seg Neuts % (Manual) Lymphocytes % (Manual) Monocytes % (Manual) Seg Neutrophils # Seg Neutrophils # Man Lymphocytes # (Manual) Monocytes # (Manual) Fibrinogen dRVVT Confirm Interp Factor V Activity POC ABG pH POC ABG pCO2 POC ABG pO2 Sodium Potassium Chloride Carbon Dioxide BUN Creatinine Glucose POC Glucose 160 H 245 H 121 H Calcium Phosphorus Magnesium C-Reactive Protein Total Protein Albumin Triglycerides HDL Cholesterol Urine WBC (Auto) Urine Creatinine Urine Total Protein Rheumatoid Factor Complement C4 Crossmatch 09/20/16 09/20/16 09/20/16 04:10 04:10 04:10 WBC 17.0 H RBC 3.21 L Hgb 8.2 L Hct 25.5 L MCV MCH 26 L MCHC RDW 20.9 H Plt Count Lymph % (Auto) Falls % (Auto) Falls # Seg Neutrophils % Seg Neuts % (Manual) Lymphocytes % (Manual) Monocytes % (Manual) Seg Neutrophils # Seg Neutrophils # Man Lymphocytes # (Manual) Monocytes # (Manual) Fibrinogen dRVVT Confirm Interp Factor V Activity POC ABG pH POC ABG pCO2 POC ABG pO2 Sodium Potassium Chloride 111.0 H Carbon Dioxide 16 L BUN 129 H Creatinine 3.7 H Glucose 115 H POC Glucose Calcium 8.2 L Phosphorus Magnesium C-Reactive Protein Total Protein Albumin Triglycerides 243 H HDL Cholesterol Urine WBC (Auto) Urine Creatinine Urine Total Protein Rheumatoid Factor Complement C4 Crossmatch 09/20/16 05:40 WBC RBC Hgb Hct MCV MCH MCHC RDW Plt Count Lymph % (Auto) Falls % (Auto) Falls # Seg Neutrophils % Seg Neuts % (Manual) Lymphocytes % (Manual) Monocytes % (Manual) Seg Neutrophils # Seg Neutrophils # Man Lymphocytes # (Manual) Monocytes # (Manual) Fibrinogen dRVVT Confirm Interp Factor V Activity POC ABG pH POC ABG pCO2 POC ABG pO2 Sodium Potassium Chloride Carbon Dioxide BUN Creatinine Glucose POC Glucose 131 H Calcium Phosphorus Magnesium C-Reactive Protein Total Protein Albumin Triglycerides HDL Cholesterol Urine WBC (Auto) Urine Creatinine Urine Total Protein Rheumatoid Factor Complement C4 Crossmatch Allied health notes reviewed: RT
--- NOTE | 2016-09-20 12:50 | Progress Note ---
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 Patient w/ good UOP, stable electrolytes. No acute indication for [employer] at this time. * Continue free H2O with tube feeds * Continue NaBicarb 1300mg TID * Vent management per critical care * Cardiology recs noted * Dose medications for renal function * Avoid potential nephrotoxins Subjective Date of service: 09/20/16 Principal diagnosis: Acute resp failure Interval history: No acute events overnight. New onset atrial fib this am. Objective - Exam Narrative Exam: DEFERRED - BEDSIDE TRACH/PEG IN PROGRESS - Vital Signs Vital signs: Vital Signs - 12hr 09/20/16 09/20/16 09/20/16 01:00 02:00 03:00 Temperature Pulse Rate 113 H 117 H 115 H Pulse Rate [ From Monitor] Respiratory 15 16 14 Rate Blood Pressure 103/56 128/72 111/63 O2 Sat by Pulse 100 Oximetry 09/20/16 09/20/16 09/20/16 03:47 04:00 04:30 Temperature 98.5 F Pulse Rate 114 H 115 H 117 H Pulse Rate [ 115 H From Monitor] Respiratory 15 15 Rate Blood Pressure 143/77 141/73 115/59 O2 Sat by Pulse 100 100 100 Oximetry 09/20/16 09/20/16 09/20/16 05:00 05:19 05:30 Temperature Pulse Rate 116 H 116 H 114 H Pulse Rate [ From Monitor] Respiratory 14 15 Rate Blood Pressure 125/64 125/64 O2 Sat by Pulse 100 100 Oximetry 09/20/16 09/20/16 09/20/16 05:38 06:00 06:11 Temperature Pulse Rate 121 H 122 H Pulse Rate [ From Monitor] Respiratory 14 14 Rate Blood Pressure 123/56 123/56 O2 Sat by Pulse Oximetry 09/20/16 09/20/16 09/20/16 06:30 07:00 07:30 Temperature Pulse Rate 115 H 111 H 117 H Pulse Rate [ From Monitor] Respiratory 15 14 16 Rate Blood Pressure 119/65 123/62 130/76 O2 Sat by Pulse 100 100 100 Oximetry 09/20/16 09/20/16 09/20/16 08:00 08:22 08:30 Temperature 99.1 F Pulse Rate 122 H 128 H 120 H Pulse Rate [ From Monitor] Respiratory 18 14 Rate Blood Pressure 122/68 122/68 116/59 O2 Sat by Pulse 100 100 Oximetry 09/20/16 09/20/16 09/20/16 09:00 09:30 10:00 Temperature Pulse Rate 126 H 138 H 148 H Pulse Rate [ From Monitor] Respiratory 17 15 20 Rate Blood Pressure 109/54 117/54 124/61 O2 Sat by Pulse 100 98 99 Oximetry 09/20/16 09/20/16 09/20/16 10:30 11:00 11:01 Temperature Pulse Rate 137 H 137 H 137 H Pulse Rate [ From Monitor] Respiratory 18 17 Rate Blood Pressure 125/46 127/64 125/46 O2 Sat by Pulse 99 97 99 Oximetry 09/20/16 09/20/16 11:30 12:00 Temperature 987 F H Pulse Rate 142 H 134 H Pulse Rate [ From Monitor] Respiratory 21 17 Rate Blood Pressure 119/63 114/56 O2 Sat by Pulse 97 98 Oximetry - Lab 09/20/16 04:10 09/20/16 04:10 Most recent lab results Calcium 8.2 mg/dL (8.4-10.2) L 09/20/16 04:10 Phosphorus 4.30 mg/dL (2.5-4.5) D 09/08/16 06:18 Magnesium 3.00 mg/dL (1.7-2.3) H 09/17/16 03:45 Urine Creatinine 47.4 mg/dL (0.1-20.0) H 09/16/16 19:19 Urine Sodium 36 mEq/L 09/16/16 19:19 Urine Total Protein 16 mg/dL (5-11.8) H 09/16/16 19:19
[2016-09-20] MEDS ORDERED: ceFAZolin 2 GM in NACL 0.9% 100 ML IV ONE (13:00)
[2016-09-20] MEDS ORDERED: NACL 0.9% 1000 ML 1,000 ML ONE (13:49)
[2016-09-20] MEDS ORDERED: DIPRIVAN 10 MG/ML IV ONE (14:07)
[2016-09-20] MEDS ORDERED: VERSED IV ONE (14:07)
[2016-09-20] MEDS ORDERED: ZEMURON IV ONE (14:08)
--- NOTE | 2016-09-20 14:23 | Progress Note ---
Assessment and Plan Assessment and plan: --Acute hypoxic respiratory failure vent dependent/unable to wean For trach and PEG today, continue current management --Acute large left MCA CVA status post TPA/encephalopathy Aspirin/statin/supportive care --Aspiration pneumonia Continue vancomycin and Flagyl, ID following --Acute exacerbation of COPD; Nebulizers tapering dose of steroids antibiotics and ventilatory support, pulmonary following --Hypertensive emergency off Cardene drip Her blood pressures are reasonable level, continue current management --Acute on chronic kidney disease stage III Management per nephrology --leukocytosis; Trending down , and a new current antibiotics --2 diabetes mellitus; Accu-Chek sliding scale coverage and ADA diet and insulin as needed --Moderate to severe protein calorie malnutrition with albumin of 2.2 Nutritional supplements, tube feeding, supportive care --DVT prophylaxis with heparin --Full CODE STATUS After Trach and PEG placement possible discharge and transfer to LTAC Critical Care time 31 minutes The high probability of a clinically significant, sudden or life threatening deterioration of the [cardiovascular, pulmonary, infectious, renal and neurological] system(s) required my full and direct attention, intervention and personal management. The aggregate critical care time was [31] minutes. This time is in addition to time spent performing reported procedures but includes the following: [] Data Review and interpretation [] Patient assessment and monitoring of vital signs [] Documentation [] Medication orders and management History Interval history: Patient seen and evaluated in her room in ICU this morning medical records reviewed No new events reported by nursing staff, patient is scheduled for tracheostomy and PEG placement today Noncommunicative orally intubated on ventilatory support Vital signs reviewed Hospitalist Physical - Constitutional Vitals: Temp Pulse Resp BP Pulse Ox 987 F H 149 H 19 95/59 99 09/20/16 12:00 09/20/16 13:45 09/20/16 13:30 09/20/16 13:45 09/20/16 13:45 General appearance: Present: no acute distress, well-nourished, other ( intubated on vent) - EENT Eyes: Present: PERRL, EOM intact - Neck Neck: Present: supple, normal ROM - Respiratory Respiratory effort: normal Respiratory: bilateral: diminished, rhonchi, negative: rales, wheezing - Cardiovascular Rhythm: regular Heart Sounds: Present: S1 & S2 - Extremities Extremities: no ischemia, pulses intact, pulses symmetrical - Abdominal General gastrointestinal: soft, non-tender, non-distended, normal bowel sounds - Integumentary Integumentary: Present: clear, warm - Psychiatric Psychiatric: appropriate mood/affect, cooperative - Neurologic Neurologic: CNII-XII intact, moves all extremities Results - Labs CBC & Chem 7: 09/20/16 04:10 09/20/16 04:10 Labs: Laboratory Last Values WBC 17.0 K/mm3 (4.5-11.0) H 09/20/16 04:10 RBC 3.21 M/mm3 (3.65-5.03) L 09/20/16 04:10 Hgb 8.2 gm/dl (10.1-14.3) L 09/20/16 04:10 Hct 25.5 % (30.3-42.9) L 09/20/16 04:10 MCV 79 fl (79-97) 09/20/16 04:10 MCH 26 pg (28-32) L 09/20/16 04:10 MCHC 32 % (30-34) 09/20/16 04:10 RDW 20.9 % (13.2-15.2) H 09/20/16 04:10 Plt Count 228 K/mm3 (140-440) 09/20/16 04:10 Lymph % (Auto) 11.5 % (13.4-35.0) L 09/19/16 09:50 Mcculloch % (Auto) 7.5 % (0.0-7.3) H 09/19/16 09:50 Eos % (Auto) 0.6 % (0.0-4.3) 09/19/16 09:50 Baso % (Auto) 0.6 % (0.0-1.8) 09/19/16 09:50 Lymph # 2.0 K/mm3 (1.2-5.4) 09/19/16 09:50 M[place]ulloch # 1.3 K/mm3 (0.0-0.8) H 09/19/16 09:50 Eos # 0.1 K/mm3 (0.0-0.4) 09/19/16 09:50 Baso # 0.1 K/mm3 (0.0-0.1) 09/19/16 09:50 Add Manual Diff Complete 09/14/16 04:07 Total Counted 100 09/14/16 04:07 Seg Neutrophils % 79.8 % (40.0-70.0) H 09/19/16 09:50 Seg Neuts % (Manual) 84.0 % (40.0-70.0) H 09/14/16 04:07 Band Neutrophils % 1.0 % 09/14/16 04:07 Lymphocytes % (Manual) 6.0 % (13.4-35.0) L 09/14/16 04:07 Reactive Lymphs % (Man) 0 % 09/14/16 04:07 Monocytes % (Manual) 9.0 % (0.0-7.3) H 09/14/16 04:07 Eosinophils % (Manual) 0 % (0.0-4.3) 09/14/16 04:07 Basophils % (Manual) 0 % (0.0-1.8) 09/14/16 04:07 Metamyelocytes % 0 % 09/14/16 04:07 Myelocytes % 0 % 09/14/16 04:07 Promyelocytes % 0 % 09/14/16 04:07 Blast Cells % 0 % 09/14/16 04:07 Nucleated RBC % Not Reportable 09/14/16 04:07 Seg Neutrophils # 13.7 K/mm3 (1.8-7.7) H 09/19/16 09:50 Seg Neutrophils # Man 24.7 K/mm3 (1.8-7.7) H 09/14/16 04:07 Band Neutrophils # 0.3 K/mm3 09/14/16 04:07 Lymphocytes # (Manual) 1.8 K/mm3 (1.2-5.4) 09/14/16 04:07 Abs React Lymphs (Man) 0.0 K/mm3 09/14/16 04:07 Monocytes # (Manual) 2.6 K/mm3 (0.0-0.8) H 09/14/16 04:07 Eosinophils # (Manual) 0.0 K/mm3 (0.0-0.4) 09/14/16 04:07 Basophils # (Manual) 0.0 K/mm3 (0.0-0.1) 09/14/16 04:07 Metamyelocytes # 0.0 K/mm3 09/14/16 04:07 Myelocytes # 0.0 K/mm3 09/14/16 04:07 Promyelocytes # 0.0 K/mm3 09/14/16 04:07 Blast Cells # 0.0 K/mm3 09/14/16 04:07 Pathologist Review 09/13/16 04:00 WBC Morphology Not Reportable 09/14/16 04:07 Hypersegmented Neuts Not Reportable 09/14/16 04:07 Hyposegmented Neuts Not Reportable 09/14/16 04:07 Hypogranular Neuts Not Reportable 09/14/16 04:07 Smudge Cells Not Reportable 09/14/16 04:07 Toxic Granulation Not Reportable 09/14/16 04:07 Toxic Vacuolation Not Reportable 09/14/16 04:07 Dohle Bodies Not Reportable 09/14/16 04:07 Pelger-Huet Anomaly Not Reportable 09/14/16 04:07 Jasmina Rods Not Reportable 09/14/16 04:07 Platelet Estimate Cons 09/14/16 04:07 Clumped Platelets Not Reportable 09/14/16 04:07 Plt Clumps, EDTA Not Reportable 09/14/16 04:07 Large Platelets Not Reportable 09/14/16 04:07 Giant Platelets Not Reportable 09/14/16 04:07 Platelet Satelliting Not Reportable 09/14/16 04:07 Plt Morphology Comment Not Reportable 09/14/16 04:07 RBC Morphology Not Reportable 09/14/16 04:07 Dimorphic RBCs Not Reportable 09/14/16 04:07 Polychromasia Not Reportable 09/14/16 04:07 Hypochromasia 1+ 09/14/16 04:07 Poikilocytosis Not Reportable 09/14/16 04:07 Anisocytosis 1+ 09/14/16 04:07 Microcytosis Not Reportable 09/14/16 04:07 Macrocytosis Not Reportable 09/14/16 04:07 Spherocytes Not Reportable 09/14/16 04:07 Pappenheimer Bodies Not Reportable 09/14/16 04:07 Sickle Cells Not Reportable 09/14/16 04:07 Target Cells Not Reportable 09/14/16 04:07 Tear Drop Cells Few 09/14/16 04:07 Ovalocytes Not Reportable 09/14/16 04:07 Helmet Cells Rare 09/14/16 04:07 Monet-[place] Bodies Not Reportable 09/14/16 04:07 [place] Rings Not Reportable 09/14/16 04:07 Chuck Cells Not Reportable 09/14/16 04:07 Bite Cells Not Reportable 09/14/16 04:07 Crenated Cell Not Reportable 09/14/16 04:07 Elliptocytes Not Reportable 09/14/16 04:07 Acanthocytes (Spur) Not Reportable 09/14/16 04:07 Rouleaux Not Reportable 09/14/16 04:07 Hemoglobin C Crystals Not Reportable 09/14/16 04:07 Schistocytes Not Reportable 09/14/16 04:07 Malaria parasites Not Reportable 09/14/16 04:07 ESR > 140.0 mm/Hr (0-20) 09/08/16 11:48 Jun Bodies Not Reportable 09/14/16 04:07 Hem Pathologist Commnt No 09/14/16 04:07 PT 13.8 Sec. (12.2-14.9) 09/15/16 05:00 INR 1.01 (0.87-1.13) 09/15/16 05:00 APTT 24.4 Sec. (24.2-36.6) 09/15/16 05:00 Thrombin Time 16.8 Sec. (15.1-19.6) 09/03/16 00:10 Fibrinogen 750 mg/dl (211-480) H 09/08/16 11:48 Lupus Anticoagulant see below 09/12/16 09:59 LA PTT Baseline See scanned report 09/12/16 09:59 dRVVT Confirm Interp Positive (Negative) H 09/12/16 09:59 dRVVT Screen 50:50 See scanned report 09/12/16 09:59 dRVVT Mix Interpret See scanned report 09/12/16 09:59 Protein C Antigen 122 % (70-140) 09/08/16 15:35 Free Protein S 97 % normal (50-147) 09/08/16 15:35 Total Protein S 109 % (70-140) 09/08/16 15:35 Antithrombin III Ag 100 % (80-120) 09/08/16 15:35 Factor V Activity 182 % (65-150) H 09/08/16 15:35 POC ABG pH 7.387 (7.35-7.45) 09/18/16 15:34 POC ABG pCO2 25.7 (35-45) L 09/18/16 15:34 POC ABG pO2 66 (80-105) L 09/18/16 15:34 POC ABG HCO3 15.5 09/18/16 15:34 POC ABG Total CO2 16 09/18/16 15:34 POC ABG O2 Sat 93 09/18/16 15:34 POC ABG Base Excess -10 09/18/16 15:34 FiO2 30 % 09/18/16 15:34 Sodium 145 mmol/L (137-145) 09/20/16 04:10 Potassium 4.6 mmol/L (3.6-5.0) 09/20/16 04:10 Chloride 111.0 mmol/L (98-107) H 09/20/16 04:10 Carbon Dioxide 16 mmol/L (22-30) L 09/20/16 04:10 Anion Gap 23 mmol/L 09/20/16 04:10 BUN 129 mg/dL (7-17) H 09/20/16 04:10 Creatinine 3.7 mg/dL (0.7-1.2) H 09/20/16 04:10 Estimated GFR 16 ml/min 09/20/16 04:10 BUN/Creatinine Ratio 34.86 % 09/20/16 04:10 Glucose 115 mg/dL (65-100) H 09/20/16 04:10 POC Glucose 131 (70-105) H 09/20/16 05:40 Osmolality 351 Mosm/kg 09/16/16 11:47 Lactic Acid 1.00 mmol/L (0.7-2.0) 09/13/16 11:30 Calcium 8.2 mg/dL (8.4-10.2) L 09/20/16 04:10 Phosphorus 4.30 mg/dL (2.5-4.5) D 09/08/16 06:18 Magnesium 3.00 mg/dL (1.7-2.3) H 09/17/16 03:45 Total Bilirubin 0.30 mg/dL (0.1-1.2) 09/13/16 04:00 AST 20 units/L (5-40) 09/13/16 04:00 ALT 18 units/L (7-56) 09/13/16 04:00 Alkaline Phosphatase 72 units/L (35-129) 09/13/16 04:00 Ammonia 27.0 umol/L (25-60) 09/07/16 08:37 Total Creatine Kinase 67 units/L (30-135) 09/03/16 11:26 CK-MB (CK-2) 1.4 ng/mL (0.0-4.0) 09/03/16 11:26 CK-MB (CK-2) Rel Index 2.0 (0-4) 09/03/16 11:26 Troponin T < 0.010 ng/mL (0.00-0.029) 09/06/16 10:43 C-Reactive Protein 1.70 mg/dL (0.00-1.30) H 09/12/16 07:22 Total Protein 6.2 g/dL (6.3-8.2) L 09/13/16 04:00 Albumin 2.9 g/dL (3.9-5) L 09/13/16 04:00 Albumin/Globulin Ratio 0.9 % 09/13/16 04:00 Triglycerides 243 mg/dL (2-149) H 09/20/16 04:10 Cholesterol 189 mg/dL (50-199) 09/04/16 03:31 LDL Cholesterol Direct 126 mg/dL (50-130) 09/04/16 03:31 HDL Cholesterol 31 mg/dL (40-59) L 09/04/16 03:31 Cholesterol/HDL Ratio 6.09 % 09/04/16 03:31 Angiotensin Convert Enz See scanned report 09/08/16 11:48 TSH 1.010 mlU/mL (0.270-4.200) 09/07/16 08:37 HCG, Qual Negative (Negative) 09/03/16 00:10 Urine Color Yellow (Yellow) 09/09/16 14:13 Urine Turbidity Slightly-cloudy (Clear) 09/09/16 14:13 Urine pH 5.0 (5.0-7.0) 09/09/16 14:13 Ur Specific [place] 1.012 (1.003-1.030) 09/09/16 14:13 Urine Protein 30 mg/dl mg/dL (Negative) 09/09/16 14:13 Urine Glucose (UA) Neg mg/dL (Negative) 09/09/16 14:13 Urine Ketones Neg mg/dL (Negative) 09/09/16 14:13 Urine Blood Lg (Negative) 09/09/16 14:13 Urine Nitrite Neg (Negative) 09/09/16 14:13 Urine Bilirubin Neg (Negative) 09/09/16 14:13 Urine Urobilinogen < 2.0 mg/dL (<2.0) 09/09/16 14:13 Ur Leukocyte Esterase Sm (Negative) 09/09/16 14:13 Urine WBC (Auto) 25.0 /HPF (0.0-6.0) H 09/09/16 14:13 Urine RBC (Auto) > 182.0 /HPF (0.0-6.0) 09/09/16 14:13 Urine Bacteria (Auto) 1+ /HPF (Negative) 09/09/16 14:13 Urine WBC Clumps 2+ /HPF 09/07/16 02:47 Hyaline Casts 4 /LPF 09/07/16 02:47 Urine Mucus Few /HPF 09/09/16 14:13 Urine Eosinophils None seen (None Seen) 09/07/16 16:00 Urine Creatinine 47.4 mg/dL (0.1-20.0) H 09/16/16 19:19 Urine Sodium 36 mEq/L 09/16/16 19:19 Urine Total Protein 16 mg/dL (5-11.8) H 09/16/16 19:19 Random Vancomycin 2.3 ug/mL (0-40.0) 09/09/16 03:00 Urine Opiates Screen Presumptive negative 09/03/16 15:11 Urine Methadone Screen Presumptive positive 09/03/16 15:11 Ur Barbiturates Screen Presumptive positive 09/03/16 15:11 Ur Phencyclidine Scrn Presumptive negative 09/03/16 15:11 Ur Amphetamines Screen Presumptive negative 09/03/16 15:11 U Benzodiazepines Scrn Presumptive negative 09/03/16 15:11 Urine Cocaine Screen Presumptive negative 09/03/16 15:11 U Marijuana (THC) Screen Presumptive positive 09/03/16 15:11 Drugs of Abuse Note Disclamer 09/03/16 15:11 Rheumatoid Factor 24 IU/ml (0-13) H 09/08/16 11:48 SAHIL Screen Negative (Negative) 09/07/16 09:20 Proteinase 3 (PR3) Ab <1.0 AI (<1.0) 09/07/16 09:20 Myeloperoxidase Ab <1.0 AI (<1.0) 09/07/16 09:20 Sjogren's Antibody <1.0 AI (<1.0) 09/08/16 15:35 Scl-70 Scleroderma Ab <1.0 AI (<1.0) 09/08/16 15:35 Centromere B Antibody <1.0 AI (<1.0) 09/08/16 12:02 Cardiolipid IgG Ab <14 GPL (<=14) 09/12/16 09:59 Cardiolipid IgA Ab <11 APL (<=11) 09/12/16 09:59 Cardiolipid IgM Ab <12 MPL (<=12) 09/12/16 09:59 Complement C3 148 mg/dL (90-180) 09/07/16 09:20 Complement C4 58 mg/dL (16-47) H 09/07/16 09:20 RPR Nonreactive (Nonreactive) 09/08/16 11:48 Hep Bs Antigen Non-reactive (Negative) 09/07/16 09:20 Hepatitis C Antibody Non-reactive (NonReactive) 09/07/16 09:20 HIV 1&2 Antibody Rapid Non react (Non React) 09/08/16 11:48 HIV P24 Antigen Non react (Non React) 09/08/16 11:48 Blood Type A POSITIVE 09/16/16 13:55 Antibody Screen TNR 09/16/16 13:55 DELORIS Antibody Screen Negative 09/16/16 13:55 Crossmatch See Detail 09/16/16 13:55
--- NOTE | 2016-09-20 15:18 | Consultation ---
History of Present Illness Consult date: 09/20/16 Consult reason: atrial fibrillation History of present illness: This is a 46yr old who is admitted with left MCA CVA. Initially she was treated with tPA but the infusion was stopped due to markedly elevated blood pressure. An echocardiogram demonstrates at least moderate LVH but a normal LV systolic function, EF 50-55%. There was no thrombus visualized on transthoracic echocardiogram. Patient is currently intubated on mechanical ventilation. GI at bedside for trach/PEG placement. Noted atrial fibrillation with rapid ventricular response on telemetry thus this cardiac consultation. Past History Past Medical History: diabetes, hypertension, renal failure, other (Medical noncompliance) Medications and Allergies Allergies Allergy/AdvReac Type Severity Reaction Status Date / Time No Known Allergies Allergy Verified 04/14/15 06:02 Home Medications Medication Instructions Recorded Confirmed Last Taken Type Acetaminophen [Tylenol Arthritis] 650 mg PO QID PRN #30 tablet.er 02/15/1609/12 Unknown Rx Albuterol Sulfate [Proventil HFA] 6.7 gm INHALATION Q4-6H 02/15/16 09/12/16 History Insulin Glargine [Lantus VIAL] 30 units SQ QHS 02/15/16 09/12/16 02/15/16 History Clonidine HCl [Catapres] 0.3 mg PO TID #90 tablet 06/15/16 09/12/16 Unknown Rx Lisinopril [Zestril] 40 mg PO BID #60 tablet 06/15/16 09/12/16 Unknown Rx Polyethylene Glycol 3350 [Miralax 17 gm PO QDAY PRN #10 packet 06/15/16 Unknown Rx 3350] Albuterol 2 inhalation INHALATION Q4HR PRN 09/12/16 09/12/16 Unknown History AtorvaSTATin [Lipitor] 20 mg PO QHS 09/12/16 09/12/16 Unknown History Flovent 110 MCG/PUFF HFA 1 inhalation INHALATION QHS 09/12/16 09/12/16 Unknown History Furosemide [Lasix] 20 mg PO QDAY 09/12/16 09/12/16 Unknown History HumaLOG VIAL 45 units SUB-Q TID 09/12/16 09/12/16 Unknown History Insulin Aspart [NovoLOG Flexpen] 30 units SUB-Q TID MDD 30 Units 09/12/16 Unknown History Labetalol HCl 300 mg PO BID 09/12/16 09/12/16 Unknown History Spironolactone [Aldactone] 25 mg PO QDAY 09/12/16 09/12/16 Unknown History hydrALAZINE [Apresoline] 25 mg PO BID 09/12/16 09/12/16 Unknown History Active Meds: Active Medications Amiodarone HCl (Cordarone) 200 mg PO QDAY [facility] Lipase/Protease/Amylase (Pancreaze Dr 10,500 Unit) 1 each FEEDTUBE PRN PRN PRN Reason: For Clogged Feeding Tube Atorvastatin Calcium (Lipitor) 40 mg PO QHS [facility] Last Admin: 09/19/16 21:13 Dose: 40 mg Clonidine HCl (Catapres-Tts Patch) 0.3 mg TD [facility] Last Admin: 09/14/16 00:02 Dose: 0.3 mg Dextrose (D50w (25gm)) 50 gm IV PRN PRN PRN Reason: hypoglycemia Haloperidol Lactate (Haldol) 5 mg IV Q6H PRN PRN Reason: Unrespon. to mult. doses BZD's Last Admin: 09/16/16 16:42 Dose: 5 mg Heparin Sodium (Porcine) (Heparin) 5,000 unit SUB-Q Q8HR [facility] Last Admin: 09/20/16 13:52 Dose: Not Given Hydralazine HCl (Apresoline) 10 mg IV Q6H PRN PRN Reason: SBP > 160 Last Admin: 09/18/16 14:17 Dose: 10 mg Hydrophilic Ointment (Vaseline Lip Therapy) 1 applic TP Q2HR PRN PRN Reason: Dry Lips Last Admin: 09/17/16 22:20 Dose: 1 applic Fentanyl Citrate (Fentanyl Drip Premix) 2,000 mcg in 100 mls @ 3.775 mls/hr IV TITR AGUSTIN; 1 MCG/KG/HR PRN Reason: Protocol Last Titration: 09/20/16 06:29 Dose: 2 mcg/kg/hr, 7.55 mls/hr Propofol (Diprivan 10 Mg/Ml) 1,000 mg in 100 mls @ 2.265 mls/hr IV TITR AGUSTIN; 5 MCG/KG/MIN PRN Reason: Protocol Last Titration: 09/20/16 06:27 Dose: 10 mcg/kg/min, 4.53 mls/hr Metronidazole (Flagyl 500 Mg/100 Ml) 500 mg in 100 mls @ 100 mls/hr IV Q8HR [facility] Last Admin: 09/20/16 13:00 Dose: 100 mls/hr Sodium Chloride (Nacl 0.9% 1000 Ml) 1,000 mls @ 75 mls/hr IV DIRECT AGUSITN Last Admin: 09/20/16 13:01 Dose: 75 mls/hr Amiodarone HCl 150 mg/ (Dextrose) 100 mls @ 600 mls/hr IV ONCE ONE PRN Reason: Protocol Stop: 09/20/16 15:39 Insulin Detemir (Levemir) 8 units SUB-Q DAILY [facility] Last Admin: 09/20/16 09:29 Dose: Not Given Insulin Human Regular (Novolin R) 0 units SUB-Q Q6HR [facility] PRN Reason: Protocol Last Admin: 09/20/16 13:10 Dose: Not Given Labetalol HCl (Normodyne) 20 mg IV Q4H PRN PRN Reason: For BP >160/100 Last Admin: 09/17/16 16:01 Dose: 20 mg Lorazepam (Ativan) 2 mg IV Q4H PRN PRN Reason: Agitation Last Admin: 09/18/16 17:47 Dose: 2 mg Lorazepam (Ativan) 2 mg IV Q15MIN NR Stop: 09/22/16 12:16 Metoclopramide HCl (Reglan) 10 mg IV Q8H PRN PRN Reason: Nausea And Vomiting Metoprolol Tartrate (Lopressor) 25 mg PO Q6H [facility] Last Admin: 09/20/16 12:00 Dose: Not Given Metoprolol Tartrate (Lopressor) 2.5 mg IV Q4HR PRN PRN Reason: HR >130 Metoprolol Tartrate (Lopressor) 5 mg IV ONCE ONE Stop: 09/20/16 15:12 Minoxidil (Loniten) 2.5 mg PO QDAY [facility] Last Admin: 09/20/16 09:00 Dose: 2.5 mg Multi-Ingred Cream/Lotion/Oil/Oint (Artificial Tears Ophth Oint) 1 applic OU Q4HR PRN PRN Reason: Dry Eye(s) Last Admin: 09/17/16 22:21 Dose: 1 applic Ondansetron HCl (Zofran) 4 mg IV Q8H PRN PRN Reason: N/V unrelieved by Reglan Last Admin: 09/15/16 15:48 Dose: 4 mg Pantoprazole (Protonix) 40 mg PO BID [facility] Last Admin: 09/20/16 09:29 Dose: Not Given Prednisone (Deltasone) 40 mg PO QDAY [facility] Last Admin: 09/20/16 09:00 Dose: 40 mg Quetiapine Fumarate (Seroquel) 300 mg PO BID [facility] Last Admin: 09/20/16 09:00 Dose: 300 mg Simple Syrup (Simple Syrup) 30 ml FEEDTUBE PRN PRN PRN Reason: Hypoglycemia Simple Syrup (Simple Syrup) 15 ml FEEDTUBE PRN PRN PRN Reason: Hypoglycemia Sodium Bicarbonate (Sodium Bicarbonate) 325 mg FEEDTUBE PRN PRN PRN Reason: For Clogged Feeding Tube Sodium Bicarbonate (Sodium Bicarbonate) 1,300 mg PO TID [facility] Last Admin: 09/20/16 15:05 Dose: Not Given Sodium Chloride (Nacl 0.9% 500 Ml) 1 ml IV DIRECT [facility] Last Admin: 09/16/16 16:43 Dose: 1 ml Sodium Chloride (Sodium Chloride Flush Syringe 10 Ml) 10 ml IV PRN PRN PRN Reason: LINE FLUSH Vancomycin HCl (Vancomycin Po) 250 mg FEEDTUBE Q6HR [facility] Last Admin: 09/20/16 12:30 Dose: Not Given Physical Examination Vital Signs Temp Pulse Resp BP Pulse Ox 98.4 F 88 18 104/80 98 09/03/16 00:00 09/03/16 00:00 09/03/16 00:00 09/03/16 00:00 09/03/16 00:00 General appearance: other (intubated on the vent) Cardiac: Positive: irregularly irregular Results 09/20/16 04:10 09/20/16 04:10 Lipids 09/20/16 Range/Units 04:10 Triglycerides 243 H (2-149) mg/dL CBC 09/20/16 Range/Units 04:10 WBC 17.0 H (4.5-11.0) K/mm3 RBC 3.21 L (3.65-5.03) M/mm3 Hgb 8.2 L (10.1-14.3) gm/dl Hct 25.5 L (30.3-42.9) % Plt Count 228 (140-440) K/mm3 Comprehensive Metabolic Panel 09/20/16 Range/Units 04:10 Sodium 145 (137-145) mmol/L Potassium 4.6 (3.6-5.0) mmol/L Chloride 111.0 H (98-107) mmol/L Carbon Dioxide 16 L (22-30) mmol/L BUN 129 H (7-17) mg/dL Creatinine 3.7 H (0.7-1.2) mg/dL Glucose 115 H (65-100) mg/dL Calcium 8.2 L (8.4-10.2) mg/dL Assessment and Plan Acute hypoxic respiratory failure on mechanical ventilation for possible trach and PEG today Acute left MCA CVA echocardiogram demonstrates at least moderate LVH but a normal LV systolic function, EF 50-55%. no thrombus visualized on transthoracic echocardiogram. Hypertension Acute on chronic renal failure Leukocytosis Diabetes mellitus Anemia requiring transfusion of PRBCs Recommendations: Intravenous amiodarone drip and IV Lopressor for rate control of atrial fibrillation with RVR.
[2016-09-20] MEDS ORDERED: CORDARONE 150 MG in D5W 97 ML IV ONE (15:30)
--- NOTE | 2016-09-20 15:31 | Operative Report ---
Operative Report Operative Report: Date of procedure: 09/20/2016 Pre-operative diagnosis: Respiratory failure with vent dependence Post-operative diagnosis: Same Procedure name(s): Percutaneous tracheostomy Surgeon: Merlyn Kerr MD Steward/Stewardess Deck: Nury Anne M.D. Anesthesia: General, 1% lidocaine EBL: Minimal Complications: None Instrument Count: correct Indications: This is a 46-year-old female with a history of respiratory failure secondary to anoxic encephalopathy who has prolonged vent dependence and has been unable to wean from the ventilator. The above-named procedure was offered to the family as a possible maintenance modality due to the risks of prolonged vent dependence. The risks and benefits of discussed until all questions were answered. She was subsequently set up for the procedure. Findings: Nonsignificant Procedure: We reviewed informed consent. The patient was then positioned in a semi-follow position the neck slightly extended. After infiltration of local anesthetic. Minimal small incision proximally one centimeter in size vertically 2 cm above the sternal notch in the neck. At this time anesthesia was prompted to partially withdraw the endotracheal tube to 16 cm at the teeth. Using a introducer needle on the syringe on gentle suction, we cannulated the trachea which was verified by a release of the suction. We placed a guidewire through the introducer needle and removed the needle we assured that we had not entrapped the endotracheal tube. We then dilated the tract using a 14 Hebrew skin dilator. This was substituted for a stiff catheter and Blue Rhino dilator combination. A 8 Shiley endotracheal tube was then placed over the stiff catheter and guidewire into the trachea. We removed the dilator catheter and guidewire and inserted the inner cannula. We then verified end tidal CO2. We secured the wings of the tracheostomy tube to the skin using a 2-0 Prolene. A tracheostomy collar was then applied and attached to the tracheostomy tube. The patient tolerated the procedure well. She was maintained on a ventilator in no apparent distress.
--- NOTE | 2016-09-20 15:32 | Operative Report ---
Operative Report Operative Report: Date of procedure: 09/20/2016 Pre-operative diagnosis: Malnutrition with need for nutritional support, prolonged vent dependence Post-operative diagnosis: Same Procedure name(s): Percutaneous endoscopic gastrostomy tube placement Surgeon: Merlyn Kerr MD Attendance Officer: Nury Anne M.D. Anesthesia: General, 1% lidocaine EBL: Minimal Complications: None Instrument Count: Correct Indications: This is a 46-year-old female with a history of malnutrition secondary to prolonged vent dependence due to respiratory failure from anoxic encephalopathy. Because of her nutritional needs the above-named procedure was offered to the family as a possible modality of treatment. The risks and benefits of discussed until all questions were answered. She was subsequently set up for the procedure. Findings: None significant Procedure: We reviewed the informed consent. The patient was then positioned with the head up. After adequate anesthesia was reached, we inserted the endoscope of the oral cavity into the stomach. The stomach was then insufflated to maximal capacity until the rugae flattened. At this time we applied gentle palpation externally and observed this visually through the endoscope, choosing a position approximately 2 fingerbreadths below the left costal margin. This was further verified using transillumination seen externally. We infiltrated local anesthetic at the site chosen. We then made a 5 mm incision at the site, and placed Angiocath through the incision. The needle was removed, and a guidewire was placed through the Angiocath. The guidewire was grasped using an endoscopic snare and brought through the oral cavity. This was attached to a 20 [place] pull-through gastrostomy tube. We then retracted the guidewire through the abdominal wall, bringing the gastrostomy tube through the oral cavity. We secured the external portion of the tube. Using the endoscope we verified placement within the stomach cavity. The tube was then secured to the abdominal wall sterilely. The patient tolerated this well and was maintained in no apparent distress
[2016-09-20] MEDS ORDERED: CORDARONE 900 MG in D5W 482 ML IV SCH (16:00)
--- NOTE | 2016-09-20 16:07 | Progress Note ---
Assessment and Plan - Patient Problems (1) Leukocytosis (leucocytosis) Current Visit: Yes Status: Acute Qualifiers: Leukocytosis type: leukemoid reaction Qualified Code(s): D72.823 - Leukemoid reaction Plan to address problem: Continue Vancomycin and Flagyl. Follow clinically. Subjective Date of service: 09/20/16 Principal diagnosis: Acute resp failure Interval history: Patient underwent a tracheostomy/ PEG placement today. Objective - Constitutional Vitals: Vital Signs Temp Pulse Resp BP Pulse Ox 987 F H 149 H 19 95/59 99 09/20/16 12:00 09/20/16 13:45 09/20/16 13:30 09/20/16 13:45 09/20/16 13:45 Temperature -Last 24 Hours Temperature 987 F Temperature 99.1 F Temperature 98.5 F Temperature 98.5 F Temperature 98.1 F Temperature 98.4 F General appearance: Present: no acute distress - Neck Neck: supple, other (tracheostomy, FiO2 30%) - Respiratory Respiratory: bilateral: CTA - Cardiovascular Rhythm: regular (tachycardic to 120-130s) Heart Sounds: Present: S1 & S2 Extremities: No edema Extremity abnormal: edema - Gastrointestinal General gastrointestinal: Present: soft, non-distended, normal bowel sounds, other ((+) PEG tube) Rectal Exam: other (rectal tube with watery dark stool) - Genitourinary Female genitourinary: other ([place] with clear urine) - Integumentary Integumentary: no jaundice, no rash - Labs CBC & Chem 7: 09/20/16 04:10 09/20/16 04:10 Labs: Abnormal lab results 09/19/16 09/19/16 09/20/16 Range/Units 17:53 23:36 04:10 WBC (4.5-11.0) K/mm3 RBC (3.65-5.03) M/mm3 Hgb (10.1-14.3) gm/dl Hct (30.3-42.9) % MCH (28-32) pg RDW (13.2-15.2) % Chloride (98-107) mmol/L Carbon Dioxide (22-30) mmol/L BUN (7-17) mg/dL Creatinine (0.7-1.2) mg/dL Glucose (65-100) mg/dL POC Glucose 245 H 121 H (70-105) Calcium (8.4-10.2) mg/dL Triglycerides 243 H (2-149) mg/dL 09/20/16 09/20/16 09/20/16 Range/Units 04:10 04:10 05:40 WBC 17.0 H (4.5-11.0) K/mm3 RBC 3.21 L (3.65-5.03) M/mm3 Hgb 8.2 L (10.1-14.3) gm/dl Hct 25.5 L (30.3-42.9) % MCH 26 L (28-32) pg RDW 20.9 H (13.2-15.2) % Chloride 111.0 H (98-107) mmol/L Carbon Dioxide 16 L (22-30) mmol/L BUN 129 H (7-17) mg/dL Creatinine 3.7 H (0.7-1.2) mg/dL Glucose 115 H (65-100) mg/dL POC Glucose 131 H (70-105) Calcium 8.2 L (8.4-10.2) mg/dL Triglycerides (2-149) mg/dL Microbiology 09/13/16 10:30 Urine,[place] Urine Culture - Final NO GROWTH AFTER 48 HOURS 09/13/16 09:04 Peripheral/Venous Blood Culture - Final NO GROWTH AFTER 5 DAYS 09/13/16 08:39 Peripheral/Venous Blood Culture - Final NO GROWTH AFTER 5 DAYS 09/15/16 18:44 Stool Stool Occult Blood (HORTENCIA) - Final 09/13/16 14:06 Tracheal Aspirate Sputum Culture - Final 09/11/16 15:03 Stool C. difficile DNA Amplification - Final 09/10/16 10:58 Urine,Clean Catch Urine Culture - Preliminary NO GROWTH AFTER 48 HOURS 09/07/16 17:39 Tracheal Aspirate Sputum Culture - Final
[2016-09-20] MEDS: LOPRESSOR IV PRN (23:08)
[2016-09-21] MEDS: HumuLIN R SUB-Q SCH ×4 (00:17→17:49)
[2016-09-21] MEDS: LOPRESSOR PO SCH ×4 (00:17→17:50)
[2016-09-21] MEDS: VANCOMYCIN PO FEEDTUBE SCH ×4 (00:18→17:48)
[2016-09-21] MEDS: fentaNYL DRIP Premix 2,000 MCG/100 ML BAG IV SCH (03:51)
[2016-09-21] MEDS: DIPRIVAN 10 MG/ML 1,000 MG/100 ML BOTTLE IV SCH (03:52)
[2016-09-21] MEDS: CATAPRES-TTS PATCH TD SCH (06:27)
[2016-09-21] MEDS: FLAGYL 500 MG/100 ML 500 MG/100 ML BAG IV SCH ×3 (06:29→22:05)
[2016-09-21] MEDS: NACL 0.9% 1000 ML 1,000 ML IV SCH (06:38)
[2016-09-21] MEDS: HEPARIN SUB-Q SCH ×3 (06:42→22:13)
[2016-09-21 08:20] LABS: Basophils % (Auto) 0.2 % (0.0-1.8); Eosinophils % (Auto) 0.3 % (0.0-4.3); Hematocrit 23.5 % (30.3-42.9); Hemoglobin 7.5 gm/dl (10.1-14.3); Lymphocytes # (Auto) 0.9 K/mm3 (1.2-5.4); Lymphocytes % (Auto) 6.9 % (13.4-35.0); Mean Corpuscular HGB Conc 32 % (30-34); Mean Corpuscular Volume 80 fl (79-97); Monocytes # (Auto) 1.3 K/mm3 (0.0-0.8); Monocytes % (Auto) 9.4 % (0.0-7.3); Platelet Count 246 K/mm3 (140-440); Red Blood Count 2.94 M/mm3 (3.65-5.03)
[2016-09-21 08:21] LABS: Mean Corpuscular Hemoglobin 26 pg (28-32); Red Cell Distribution Width 21.2 % (13.2-15.2)
[2016-09-21 08:38] LABS: Calcium 8.2 mg/dL (8.4-10.2)
[2016-09-21 08:46] LABS: BUN/Creatinine Ratio 30.76
[2016-09-21] MEDS ORDERED: CORDARONE PO SCH ×2 (10:00→13:00)
[2016-09-21] MEDS: LEVEMIR (NF) SUB-Q SCH (10:11)
[2016-09-21] MEDS: PROTONIX PO SCH ×2 (10:12→22:11)
[2016-09-21] MEDS: DELTASONE PO SCH (10:12)
[2016-09-21] MEDS: LONITEN PO SCH (10:13)
--- NOTE | 2016-09-21 10:28 | Progress Note ---
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 bun noted, will follow up crcl, may need HAND RUG BRAIDER for control of azotemia * Continue free H2O with tube feeds * Continue NaBicarb 1300mg TID * Vent management per critical care * Cardiology recs noted * Dose medications for renal function * Avoid potential nephrotoxins Subjective Date of service: 09/21/16 Principal diagnosis: Acute Hypoxemic Respiratory Failure; Acute CVA Interval history: no new event Objective - Exam Narrative Exam: Gen. appearance: Patient lying in bed, no apparent distress, 4. restraints HEENT: Normocephalic, atraumatic, pupils equally round and reactive to light, extraocular movement intact, and no sclericterus,. No JVD or thyromegaly or nodule,neck supple, no carotid bruit ,mucous membranes moist, unable to examine oral cavity Heart: S1, S2, regular rate and rhythm Lungs: Clear to auscultation bilaterally, breathing comfortable Abdomen: Positive bowel sounds, nontender, nondistended, no organomegaly Extremity: No edema, cyanosis, clubbing Skin: No rash, nodules, warm, dry Neuro: Difficult to assess, facial droop, moves all 4 extremities - Vital Signs Vital signs: Vital Signs - 12hr 09/20/16 09/20/16 09/20/16 22:30 23:00 23:08 Temperature Pulse Rate 118 H 115 H 159 H Respiratory 14 15 Rate Blood Pressure 119/51 123/61 132/65 O2 Sat by Pulse 97 97 Oximetry O2 Sat by Pulse Oximetry [ Assessment] 09/20/16 09/20/16 09/20/16 23:26 23:30 23:32 Temperature 99.2 F Pulse Rate 117 H 113 H Respiratory 15 19 Rate Blood Pressure 123/58 123/58 O2 Sat by Pulse 95 99 Oximetry O2 Sat by Pulse Oximetry [ Assessment] 09/20/16 09/21/16 09/21/16 23:52 00:00 00:17 Temperature Pulse Rate 112 H 113 H 110 H Respiratory 15 Rate Blood Pressure 118/58 124/61 122/53 O2 Sat by Pulse 99 98 Oximetry O2 Sat by Pulse Oximetry [ Assessment] 09/21/16 09/21/16 09/21/16 00:30 01:00 01:30 Temperature Pulse Rate 104 H 92 H 92 H Respiratory 15 14 14 Rate Blood Pressure 123/59 116/54 130/73 O2 Sat by Pulse 99 99 95 Oximetry O2 Sat by Pulse Oximetry [ Assessment] 09/21/16 09/21/16 09/21/16 02:00 02:30 03:00 Temperature Pulse Rate 95 H 100 H 104 H Respiratory 12 14 15 Rate Blood Pressure 146/74 140/66 131/76 O2 Sat by Pulse 97 99 98 Oximetry O2 Sat by Pulse Oximetry [ Assessment] 09/21/16 09/21/16 09/21/16 03:21 03:30 03:45 Temperature 100.1 F H Pulse Rate 99 H 102 H Respiratory 15 Rate Blood Pressure 133/65 137/70 O2 Sat by Pulse 100 100 Oximetry O2 Sat by Pulse Oximetry [ Assessment] 09/21/16 09/21/16 09/21/16 03:52 04:00 04:30 Temperature Pulse Rate 100 H 99 H Respiratory 15 15 14 Rate Blood Pressure 136/64 132/63 O2 Sat by Pulse 98 98 Oximetry O2 Sat by Pulse Oximetry [ Assessment] 09/21/16 09/21/16 09/21/16 05:00 05:30 05:52 Temperature Pulse Rate 98 H 101 H Respiratory 14 15 Rate Blood Pressure 129/65 157/82 O2 Sat by Pulse 98 99 Oximetry O2 Sat by Pulse 100 Oximetry [ Assessment] 09/21/16 09/21/16 09/21/16 06:00 06:27 06:29 Temperature Pulse Rate 116 H 107 H 107 H Respiratory 20 Rate Blood Pressure 180/94 168/71 168/76 O2 Sat by Pulse 100 Oximetry O2 Sat by Pulse Oximetry [ Assessment] 09/21/16 09/21/16 09/21/16 06:30 07:00 07:30 Temperature Pulse Rate 111 H 111 H 104 H Respiratory 16 19 18 Rate Blood Pressure 162/83 155/86 169/80 O2 Sat by Pulse 100 100 100 Oximetry O2 Sat by Pulse Oximetry [ Assessment] 09/21/16 09/21/16 09/21/16 08:00 08:31 10:01 Temperature 98.9 F Pulse Rate 100 H 98 H 100 H Respiratory 16 19 22 Rate Blood Pressure 164/80 154/75 174/91 O2 Sat by Pulse 100 100 100 Oximetry O2 Sat by Pulse Oximetry [ Assessment] - Lab 09/21/16 07:45 09/21/16 07:45 Most recent lab results Calcium 8.2 mg/dL (8.4-10.2) L 09/21/16 07:45 Phosphorus 4.30 mg/dL (2.5-4.5) D 09/08/16 06:18 Magnesium 2.70 mg/dL (1.7-2.3) H 09/21/16 03:30 Urine Creatinine 47.4 mg/dL (0.1-20.0) H 09/16/16 19:19 Urine Sodium 36 mEq/L 09/16/16 19:19 Urine Total Protein 16 mg/dL (5-11.8) H 09/16/16 19:19
--- NOTE | 2016-09-21 11:46 | Progress Note ---
Assessment and Plan Acute hypoxic respiratory failure on mechanical ventilation s/p trach and PEG Acute left MCA CVA echocardiogram demonstrates at least moderate LVH but a normal LV systolic function, EF 50-55%. no thrombus visualized on transthoracic echocardiogram. Hypertension Acute on chronic renal failure Leukocytosis Diabetes mellitus Anemia requiring transfusion of PRBCs Paroxysmal Afib on amiodarone drip and metoprolol Recommendations: Transition to oral amiodarone for her paroxysmal afib. Optimal BP management. Subjective Date of service: 09/21/16 Principal diagnosis: Acute Hypoxemic Respiratory Failure; Acute CVA Interval history: Remains intubated via trach. BP still not optimal. Objective Vital Signs Temp Pulse Resp BP Pulse Ox Pulse Ox 09/21/16 10:01 100 H 22 174/91 100 09/21/16 08:31 98 H 19 154/75 100 09/21/16 08:00 98.9 F 100 H 16 164/80 100 09/21/16 07:30 104 H 18 169/80 100 09/21/16 07:00 111 H 19 155/86 100 09/21/16 06:30 111 H 16 162/83 100 09/21/16 06:29 107 H 168/76 09/21/16 06:27 107 H 168/71 09/21/16 06:00 116 H 20 180/94 100 09/21/16 05:52 100 09/21/16 05:30 101 H 15 157/82 99 09/21/16 05:00 98 H 14 129/65 98 09/21/16 04:30 99 H 14 132/63 98 09/21/16 04:00 100 H 15 136/64 98 09/21/16 03:52 15 09/21/16 03:45 102 H 137/70 100 09/21/16 03:30 99 H 15 133/65 100 09/21/16 03:21 100.1 F H 09/21/16 03:00 104 H 15 131/76 98 09/21/16 02:30 100 H 14 140/66 99 09/21/16 02:00 95 H 12 146/74 97 09/21/16 01:30 92 H 14 130/73 95 09/21/16 01:00 92 H 14 116/54 99 09/21/16 00:30 104 H 15 123/59 99 09/21/16 00:17 110 H 122/53 09/21/16 00:00 113 H 15 124/61 98 09/20/16 23:52 112 H 118/58 99 09/20/16 23:32 113 H 19 123/58 99 09/20/16 23:30 117 H 15 123/58 95 09/20/16 23:26 99.2 F 09/20/16 23:08 159 H 132/65 09/20/16 23:00 115 H 15 123/61 97 09/20/16 22:30 118 H 14 119/51 97 09/20/16 22:00 109 H 14 134/61 98 09/20/16 21:30 112 H 14 126/63 97 09/20/16 21:11 112 H 122/65 98 09/20/16 21:00 113 H 14 121/61 98 09/20/16 20:30 113 H 16 130/63 98 09/20/16 20:00 118 H 12 142/71 100 09/20/16 19:43 99.1 F 09/20/16 19:30 111 H 14 112/52 98 09/20/16 19:00 120 H 16 117/58 09/20/16 18:30 125 H 12 125/65 96 09/20/16 18:20 112 H 98/56 09/20/16 18:00 124 H 20 132/66 98 09/20/16 17:30 126 H 16 135/63 96 09/20/16 17:00 128 H 14 129/78 98 09/20/16 16:34 99.7 F H 132 H 17 102/54 100 09/20/16 16:33 128 H 130/72 100 09/20/16 16:30 127 H 13 135/72 98 09/20/16 16:00 99.4 F 130 H 18 147/85 100 09/20/16 15:30 129 H 19 125/68 97 09/20/16 15:00 127 H 13 112/54 99 09/20/16 14:40 155 H 102/56 09/20/16 14:30 128 H 16 102/51 100 09/20/16 14:00 135 H 18 92/50 100 09/20/16 13:50 99.7 F H 132 H 17 102/54 100 09/20/16 13:45 149 H 95/59 99 09/20/16 13:30 137 H 19 95/59 98 09/20/16 13:00 137 H 18 100/51 98 09/20/16 12:30 129 H 17 110/48 98 09/20/16 12:00 987 F H 134 H 17 114/56 98 - Physical Examination General: Other (intubated via trach) Cardiac: Positive: Reg Rate and Rhythm - Labs and Meds CBC 09/21/16 Range/Units 07:45 WBC 13.8 H (4.5-11.0) K/mm3 RBC 2.94 L (3.65-5.03) M/mm3 Hgb 7.5 L (10.1-14.3) gm/dl Hct 23.5 L (30.3-42.9) % Plt Count 246 (140-440) K/mm3 Lymph # 0.9 L (1.2-5.4) K/mm3 [place] # 1.3 H (0.0-0.8) K/mm3 Eos # 0.0 (0.0-0.4) K/mm3 Baso # 0.0 (0.0-0.1) K/mm3 Comprehensive Metabolic Panel 09/21/16 Range/Units 07:45 Sodium 147 H (137-145) mmol/L Potassium 4.4 (3.6-5.0) mmol/L Chloride 114.2 H (98-107) mmol/L Carbon Dioxide 15 L (22-30) mmol/L BUN 120 H (7-17) mg/dL Creatinine 3.9 H (0.7-1.2) mg/dL Glucose 156 H (65-100) mg/dL Calcium 8.2 L (8.4-10.2) mg/dL - Imaging and Cardiology EKG: image reviewed - Allied health notes Allied health notes reviewed: RT
--- NOTE | 2016-09-21 12:20 | Progress Note ---
Assessment and Plan Assessment and plan: --Acute hypoxic respiratory failure vent dependent/unable to wean s/p trach and PEG, continue trach care Start PEG feeding per protocol --Paroxysmal A. 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/encephalopathy Aspirin/statin/supportive care --Aspiration pneumonia Continue vancomycin and Flagyl, ID following --Acute exacerbation of COPD; Nebulizers tapering dose of steroids antibiotics and ventilatory support, pulmonary following --Hypertensive emergency off Cardene drip Her blood pressures are reasonable level, continue current management --Acute on chronic kidney disease stage III Management per nephrology --leukocytosis; Trending down , and a new current antibiotics --2 diabetes mellitus; Accu-Chek sliding scale coverage and ADA diet and insulin as needed --Moderate to severe protein calorie malnutrition with albumin of 2.2 Nutritional supplements, tube feeding, supportive care --DVT prophylaxis with heparin --Full CODE STATUS Discharge planning ; possible LTAC placement in 1-2 days if stable Critical Care time 32 minutes The high probability of a clinically significant, sudden or life threatening deterioration of the [cardiovascular, pulmonary, infectious, renal and neurological] system(s) required my full and direct attention, intervention and personal management. The aggregate critical care time was [32] minutes. This time is in addition to time spent performing reported procedures but includes the following: [] Data Review and interpretation [] Patient assessment and monitoring of vital signs [] Documentation [] Medication orders and management History Interval history: Patient seen and evaluated in ICU this morning medical records reviewed Had trach and PEG yesterday tolerated the procedure well Noncommunicative, vital signs reviewed Hospitalist Physical - Constitutional Vitals: Temp Pulse Resp BP Pulse Ox 98.9 F 100 H 22 174/91 100 09/21/16 08:00 09/21/16 10:01 09/21/16 10:01 09/21/16 10:01 09/21/16 10:01 General appearance: Present: no acute distress, well-nourished, obese - EENT Eyes: Present: PERRL ENT: other (status post trach) - Neck Neck: Present: supple - Respiratory Respiratory effort: normal Respiratory: bilateral: diminished, rhonchi, negative: rales, wheezing - Cardiovascular Rhythm: regular Heart Sounds: Present: S1 & S2 - Extremities Extremities: no ischemia, No edema - Abdominal General gastrointestinal: soft, non-tender, non-distended, normal bowel sounds, other (PEG in place) - Integumentary Integumentary: Present: clear, warm - Psychiatric Psychiatric: other (noncommunicative) - Neurologic Neurologic: other (noncommunicative) Results - Labs CBC & Chem 7: 09/21/16 07:45 09/21/16 07:45 Labs: Laboratory Last Values WBC 13.8 K/mm3 (4.5-11.0) H 09/21/16 07:45 RBC 2.94 M/mm3 (3.65-5.03) L 09/21/16 07:45 Hgb 7.5 gm/dl (10.1-14.3) L 09/21/16 07:45 Hct 23.5 % (30.3-42.9) L 09/21/16 07:45 MCV 80 fl (79-97) 09/21/16 07:45 MCH 26 pg (28-32) L 09/21/16 07:45 MCHC 32 % (30-34) 09/21/16 07:45 RDW 21.2 % (13.2-15.2) H 09/21/16 07:45 Plt Count 246 K/mm3 (140-440) 09/21/16 07:45 Lymph % (Auto) 6.9 % (13.4-35.0) L 09/21/16 07:45 Boyd % (Auto) 9.4 % (0.0-7.3) H 09/21/16 07:45 Eos % (Auto) 0.3 % (0.0-4.3) 09/21/16 07:45 Baso % (Auto) 0.2 % (0.0-1.8) 09/21/16 07:45 Lymph # 0.9 K/mm3 (1.2-5.4) L 09/21/16 07:45 Boyd # 1.3 K/mm3 (0.0-0.8) H 09/21/16 07:45 Eos # 0.0 K/mm3 (0.0-0.4) 09/21/16 07:45 Baso # 0.0 K/mm3 (0.0-0.1) 09/21/16 07:45 Add Manual Diff Complete 09/14/16 04:07 Total Counted 100 09/14/16 04:07 Seg Neutrophils % 83.2 % (40.0-70.0) H 09/21/16 07:45 Seg Neuts % (Manual) 84.0 % (40.0-70.0) H 09/14/16 04:07 Band Neutrophils % 1.0 % 09/14/16 04:07 Lymphocytes % (Manual) 6.0 % (13.4-35.0) L 09/14/16 04:07 Reactive Lymphs % (Man) 0 % 09/14/16 04:07 Monocytes % (Manual) 9.0 % (0.0-7.3) H 09/14/16 04:07 Eosinophils % (Manual) 0 % (0.0-4.3) 09/14/16 04:07 Basophils % (Manual) 0 % (0.0-1.8) 09/14/16 04:07 Metamyelocytes % 0 % 09/14/16 04:07 Myelocytes % 0 % 09/14/16 04:07 Promyelocytes % 0 % 09/14/16 04:07 Blast Cells % 0 % 09/14/16 04:07 Nucleated RBC % Not Reportable 09/14/16 04:07 Seg Neutrophils # 11.5 K/mm3 (1.8-7.7) H 09/21/16 07:45 Seg Neutrophils # Man 24.7 K/mm3 (1.8-7.7) H 09/14/16 04:07 Band Neutrophils # 0.3 K/mm3 09/14/16 04:07 Lymphocytes # (Manual) 1.8 K/mm3 (1.2-5.4) 09/14/16 04:07 Abs React Lymphs (Man) 0.0 K/mm3 09/14/16 04:07 Monocytes # (Manual) 2.6 K/mm3 (0.0-0.8) H 09/14/16 04:07 Eosinophils # (Manual) 0.0 K/mm3 (0.0-0.4) 09/14/16 04:07 Basophils # (Manual) 0.0 K/mm3 (0.0-0.1) 09/14/16 04:07 Metamyelocytes # 0.0 K/mm3 09/14/16 04:07 Myelocytes # 0.0 K/mm3 09/14/16 04:07 Promyelocytes # 0.0 K/mm3 09/14/16 04:07 Blast Cells # 0.0 K/mm3 09/14/16 04:07 Pathologist Review 09/13/16 04:00 WBC Morphology Not Reportable 09/14/16 04:07 Hypersegmented Neuts Not Reportable 09/14/16 04:07 Hyposegmented Neuts Not Reportable 09/14/16 04:07 Hypogranular Neuts Not Reportable 09/14/16 04:07 Smudge Cells Not Reportable 09/14/16 04:07 Toxic Granulation Not Reportable 09/14/16 04:07 Toxic Vacuolation Not Reportable 09/14/16 04:07 Dohle Bodies Not Reportable 09/14/16 04:07 Pelger-Huet Anomaly Not Reportable 09/14/16 04:07 Jasmina Rods Not Reportable 09/14/16 04:07 Platelet Estimate Cons 09/14/16 04:07 Clumped Platelets Not Reportable 09/14/16 04:07 Plt Clumps, EDTA Not Reportable 09/14/16 04:07 Large Platelets Not Reportable 09/14/16 04:07 Giant Platelets Not Reportable 09/14/16 04:07 Platelet Satelliting Not Reportable 09/14/16 04:07 Plt Morphology Comment Not Reportable 09/14/16 04:07 RBC Morphology Not Reportable 09/14/16 04:07 Dimorphic RBCs Not Reportable 09/14/16 04:07 Polychromasia Not Reportable 09/14/16 04:07 Hypochromasia 1+ 09/14/16 04:07 Poikilocytosis Not Reportable 09/14/16 04:07 Anisocytosis 1+ 09/14/16 04:07 Microcytosis Not Reportable 09/14/16 04:07 Macrocytosis Not Reportable 09/14/16 04:07 Spherocytes Not Reportable 09/14/16 04:07 Pappenheimer Bodies Not Reportable 09/14/16 04:07 Sickle Cells Not Reportable 09/14/16 04:07 Target Cells Not Reportable 09/14/16 04:07 Tear Drop Cells Few 09/14/16 04:07 Ovalocytes Not Reportable 09/14/16 04:07 Helmet Cells Rare 09/14/16 04:07 [place] Bodies Not Reportable 09/14/16 04:07 [place] Rings Not Reportable 09/14/16 04:07 Chuck Cells Not Reportable 09/14/16 04:07 Bite Cells Not Reportable 09/14/16 04:07 Crenated Cell Not Reportable 09/14/16 04:07 Elliptocytes Not Reportable 09/14/16 04:07 Acanthocytes (Spur) Not Reportable 09/14/16 04:07 Rouleaux Not Reportable 09/14/16 04:07 Hemoglobin C Crystals Not Reportable 09/14/16 04:07 Schistocytes Not Reportable 09/14/16 04:07 Malaria parasites Not Reportable 09/14/16 04:07 ESR > 140.0 mm/Hr (0-20) 09/08/16 11:48 Jun Bodies Not Reportable 09/14/16 04:07 Hem Pathologist Commnt No 09/14/16 04:07 PT 13.8 Sec. (12.2-14.9) 09/15/16 05:00 INR 1.01 (0.87-1.13) 09/15/16 05:00 APTT 24.4 Sec. (24.2-36.6) 09/15/16 05:00 Thrombin Time 16.8 Sec. (15.1-19.6) 09/03/16 00:10 Fibrinogen 750 mg/dl (211-480) H 09/08/16 11:48 Lupus Anticoagulant see below 09/12/16 09:59 LA PTT Baseline See scanned report 09/12/16 09:59 dRVVT Confirm Interp Positive (Negative) H 09/12/16 09:59 dRVVT Screen 50:50 See scanned report 09/12/16 09:59 dRVVT Mix Interpret See scanned report 09/12/16 09:59 Protein C Antigen 122 % (70-140) 09/08/16 15:35 Free Protein S 97 % normal (50-147) 09/08/16 15:35 Total Protein S 109 % (70-140) 09/08/16 15:35 Antithrombin III Ag 100 % (80-120) 09/08/16 15:35 Factor V Activity 182 % (65-150) H 09/08/16 15:35 POC ABG pH 7.308 (7.35-7.45) L 09/21/16 10:01 POC ABG pCO2 31.9 (35-45) L 09/21/16 10:01 POC ABG pO2 148 (80-105) H 09/21/16 10:01 POC ABG HCO3 16.0 09/21/16 10:01 POC ABG Total CO2 17 09/21/16 10:01 POC ABG O2 Sat 99 09/21/16 10:01 POC ABG Base Excess -10 09/21/16 10:01 FiO2 30 % 09/21/16 10:01 Sodium 147 mmol/L (137-145) H 09/21/16 07:45 Potassium 4.4 mmol/L (3.6-5.0) 09/21/16 07:45 Chloride 114.2 mmol/L (98-107) H 09/21/16 07:45 Carbon Dioxide 15 mmol/L (22-30) L 09/21/16 07:45 Anion Gap 22 mmol/L 09/21/16 07:45 BUN 120 mg/dL (7-17) H 09/21/16 07:45 Creatinine 3.9 mg/dL (0.7-1.2) H 09/21/16 07:45 Estimated GFR 15 ml/min 09/21/16 07:45 BUN/Creatinine Ratio 30.76 % 09/21/16 07:45 Glucose 156 mg/dL (65-100) H 09/21/16 07:45 POC Glucose 141 (70-105) H 09/21/16 04:44 Osmolality 351 Mosm/kg 09/16/16 11:47 Lactic Acid 1.00 mmol/L (0.7-2.0) 09/13/16 11:30 Calcium 8.2 mg/dL (8.4-10.2) L 09/21/16 07:45 Phosphorus 4.30 mg/dL (2.5-4.5) D 09/08/16 06:18 Magnesium 2.70 mg/dL (1.7-2.3) H 09/21/16 03:30 Total Bilirubin 0.30 mg/dL (0.1-1.2) 09/13/16 04:00 AST 20 units/L (5-40) 09/13/16 04:00 ALT 18 units/L (7-56) 09/13/16 04:00 Alkaline Phosphatase 72 units/L (35-129) 09/13/16 04:00 Ammonia 27.0 umol/L (25-60) 09/07/16 08:37 Total Creatine Kinase 67 units/L (30-135) 09/03/16 11:26 CK-MB (CK-2) 1.4 ng/mL (0.0-4.0) 09/03/16 11:26 CK-MB (CK-2) Rel Index 2.0 (0-4) 09/03/16 11:26 Troponin T < 0.010 ng/mL (0.00-0.029) 09/06/16 10:43 C-Reactive Protein 1.70 mg/dL (0.00-1.30) H 09/12/16 07:22 Total Protein 6.2 g/dL (6.3-8.2) L 09/13/16 04:00 Albumin 2.9 g/dL (3.9-5) L 09/13/16 04:00 Albumin/Globulin Ratio 0.9 % 09/13/16 04:00 Triglycerides 243 mg/dL (2-149) H 09/20/16 04:10 Cholesterol 189 mg/dL (50-199) 09/04/16 03:31 LDL Cholesterol Direct 126 mg/dL (50-130) 09/04/16 03:31 HDL Cholesterol 31 mg/dL (40-59) L 09/04/16 03:31 Cholesterol/HDL Ratio 6.09 % 09/04/16 03:31 Angiotensin Convert Enz See scanned report 09/08/16 11:48 TSH 1.010 mlU/mL (0.270-4.200) 09/07/16 08:37 HCG, Qual Negative (Negative) 09/03/16 00:10 Urine Color Yellow (Yellow) 09/09/16 14:13 Urine Turbidity Slightly-cloudy (Clear) 09/09/16 14:13 Urine pH 5.0 (5.0-7.0) 09/09/16 14:13 Ur Specific [place] 1.012 (1.003-1.030) 09/09/16 14:13 Urine Protein 30 mg/dl mg/dL (Negative) 09/09/16 14:13 Urine Glucose (UA) Neg mg/dL (Negative) 09/09/16 14:13 Urine Ketones Neg mg/dL (Negative) 09/09/16 14:13 Urine Blood Lg (Negative) 09/09/16 14:13 Urine Nitrite Neg (Negative) 09/09/16 14:13 Urine Bilirubin Neg (Negative) 09/09/16 14:13 Urine Urobilinogen < 2.0 mg/dL (<2.0) 09/09/16 14:13 Ur Leukocyte Esterase Sm (Negative) 09/09/16 14:13 Urine WBC (Auto) 25.0 /HPF (0.0-6.0) H 09/09/16 14:13 Urine RBC (Auto) > 182.0 /HPF (0.0-6.0) 09/09/16 14:13 Urine Bacteria (Auto) 1+ /HPF (Negative) 09/09/16 14:13 Urine WBC Clumps 2+ /HPF 09/07/16 02:47 Hyaline Casts 4 /LPF 09/07/16 02:47 Urine Mucus Few /HPF 09/09/16 14:13 Urine Eosinophils None seen (None Seen) 09/07/16 16:00 Urine Creatinine 47.4 mg/dL (0.1-20.0) H 09/16/16 19:19 Urine Sodium 36 mEq/L 09/16/16 19:19 Urine Total Protein 16 mg/dL (5-11.8) H 09/16/16 19:19 Random Vancomycin 2.3 ug/mL (0-40.0) 09/09/16 03:00 Urine Opiates Screen Presumptive negative 09/03/16 15:11 Urine Methadone Screen Presumptive positive 09/03/16 15:11 Ur Barbiturates Screen Presumptive positive 09/03/16 15:11 Ur Phencyclidine Scrn Presumptive negative 09/03/16 15:11 Ur Amphetamines Screen Presumptive negative 09/03/16 15:11 U Benzodiazepines Scrn Presumptive negative 09/03/16 15:11 Urine Cocaine Screen Presumptive negative 09/03/16 15:11 U Marijuana (THC) Screen Presumptive positive 09/03/16 15:11 Drugs of Abuse Note Disclamer 09/03/16 15:11 Rheumatoid Factor 24 IU/ml (0-13) H 09/08/16 11:48 SAHIL Screen Negative (Negative) 09/07/16 09:20 Proteinase 3 (PR3) Ab <1.0 AI (<1.0) 09/07/16 09:20 Myeloperoxidase Ab <1.0 AI (<1.0) 09/07/16 09:20 Sjogren's Antibody <1.0 AI (<1.0) 09/08/16 15:35 Scl-70 Scleroderma Ab <1.0 AI (<1.0) 09/08/16 15:35 Centromere B Antibody <1.0 AI (<1.0) 09/08/16 12:02 Cardiolipid IgG Ab <14 GPL (<=14) 09/12/16 09:59 Cardiolipid IgA Ab <11 APL (<=11) 09/12/16 09:59 Cardiolipid IgM Ab <12 MPL (<=12) 09/12/16 09:59 Complement C3 148 mg/dL (90-180) 09/07/16 09:20 Complement C4 58 mg/dL (16-47) H 09/07/16 09:20 RPR Nonreactive (Nonreactive) 09/08/16 11:48 Hep Bs Antigen Non-reactive (Negative) 09/07/16 09:20 Hepatitis C Antibody Non-reactive (NonReactive) 09/07/16 09:20 HIV 1&2 Antibody Rapid Non react (Non React) 09/08/16 11:48 HIV P24 Antigen Non react (Non React) 09/08/16 11:48 Blood Type A POSITIVE 09/16/16 13:55 Antibody Screen TNR 09/16/16 13:55 DELORIS Antibody Screen Negative 09/16/16 13:55 Crossmatch See Detail 09/16/16 13:55
[2016-09-21] MEDS ORDERED: PERCOCET 5/325 PO PRN (12:43)
[2016-09-21] MEDS: SODIUM BICARBONATE PO SCH ×3 (13:22→22:03)
--- NOTE | 2016-09-21 13:28 | Progress Note ---
Assessment and Plan - Patient Problems (1) Acute respiratory failure with hypoxia Current Visit: Yes Status: Acute Plan to address problem: s/p trach and PEG doing well from our standpoint continue TFs via PEG per protocol we will sign-off please re-consult as needed Subjective Date of service: 09/21/16 Patient Reports: Positive: other (opens eyes) Objective Vital Signs - 12hr 09/21/16 09/21/16 09/21/16 01:30 02:00 02:30 Temperature Pulse Rate 92 H 95 H 100 H Respiratory 14 12 14 Rate Blood Pressure 130/73 146/74 140/66 O2 Sat by Pulse 95 97 99 Oximetry O2 Sat by Pulse Oximetry [ Assessment] 09/21/16 09/21/16 09/21/16 03:00 03:21 03:30 Temperature 100.1 F H Pulse Rate 104 H 99 H Respiratory 15 15 Rate Blood Pressure 131/76 133/65 O2 Sat by Pulse 98 100 Oximetry O2 Sat by Pulse Oximetry [ Assessment] 09/21/16 09/21/16 09/21/16 03:45 03:52 04:00 Temperature Pulse Rate 102 H 100 H Respiratory 15 15 Rate Blood Pressure 137/70 136/64 O2 Sat by Pulse 100 98 Oximetry O2 Sat by Pulse Oximetry [ Assessment] 09/21/16 09/21/16 09/21/16 04:30 05:00 05:30 Temperature Pulse Rate 99 H 98 H 101 H Respiratory 14 14 15 Rate Blood Pressure 132/63 129/65 157/82 O2 Sat by Pulse 98 98 99 Oximetry O2 Sat by Pulse Oximetry [ Assessment] 09/21/16 09/21/16 09/21/16 05:52 06:00 06:27 Temperature Pulse Rate 116 H 107 H Respiratory 20 Rate Blood Pressure 180/94 168/71 O2 Sat by Pulse 100 Oximetry O2 Sat by Pulse 100 Oximetry [ Assessment] 09/21/16 09/21/16 09/21/16 06:29 06:30 07:00 Temperature Pulse Rate 107 H 111 H 111 H Respiratory 16 19 Rate Blood Pressure 168/76 162/83 155/86 O2 Sat by Pulse 100 100 Oximetry O2 Sat by Pulse Oximetry [ Assessment] 09/21/16 09/21/16 09/21/16 07:30 08:00 08:31 Temperature 98.9 F Pulse Rate 104 H 100 H 98 H Respiratory 18 16 19 Rate Blood Pressure 169/80 164/80 154/75 O2 Sat by Pulse 100 100 100 Oximetry O2 Sat by Pulse Oximetry [ Assessment] 09/21/16 09/21/16 10:01 13:22 Temperature Pulse Rate 100 H 111 H Respiratory 22 Rate Blood Pressure 174/91 152/78 O2 Sat by Pulse 100 Oximetry O2 Sat by Pulse Oximetry [ Assessment] - General physical appearance no distress - Neck other (Trach site clean and dry) - Abdomen other (PEG site clean and dry) - Labs 09/21/16 07:45 09/21/16 07:45 Diabetes panel 09/21/16 Range/Units 07:45 Sodium 147 H (137-145) mmol/L Potassium 4.4 (3.6-5.0) mmol/L Chloride 114.2 H (98-107) mmol/L Carbon Dioxide 15 L (22-30) mmol/L BUN 120 H (7-17) mg/dL Creatinine 3.9 H (0.7-1.2) mg/dL Glucose 156 H (65-100) mg/dL Calcium 8.2 L (8.4-10.2) mg/dL Calcium panel 09/21/16 Range/Units 07:45 Calcium 8.2 L (8.4-10.2) mg/dL Pituitary panel 09/21/16 Range/Units 07:45 Sodium 147 H (137-145) mmol/L Potassium 4.4 (3.6-5.0) mmol/L Chloride 114.2 H (98-107) mmol/L Carbon Dioxide 15 L (22-30) mmol/L BUN 120 H (7-17) mg/dL Creatinine 3.9 H (0.7-1.2) mg/dL Glucose 156 H (65-100) mg/dL Calcium 8.2 L (8.4-10.2) mg/dL Adrenal panel 09/21/16 Range/Units 07:45 Sodium 147 H (137-145) mmol/L Potassium 4.4 (3.6-5.0) mmol/L Chloride 114.2 H (98-107) mmol/L Carbon Dioxide 15 L (22-30) mmol/L BUN 120 H (7-17) mg/dL Creatinine 3.9 H (0.7-1.2) mg/dL Glucose 156 H (65-100) mg/dL Calcium 8.2 L (8.4-10.2) mg/dL
--- NOTE | 2016-09-21 13:40 | Progress Note ---
Assessment and Plan - Patient Problems (1) Acute respiratory failure with hypoxia Current Visit: Yes Status: Acute Plan to address problem: - continue aspiration precautions / address VAP bundles - continue to wean oxygen for MAP > 94% - continue bronchodilators and pulmonary toilet - will continue to taper systemic steroids (no active needs pulmonary-[place]) - completed empiric levaquin dosing - for tracheostomy today - resume weaning in am (2) Acute CVA (cerebrovascular accident) Current Visit: Yes Status: Acute Plan to address problem: - out of tpA window (initially stopped due to uncontrolled HTN) - Left MCA teritory stroke with some midline shift on last CT - seen by neurology and prognosis for recovery of mental status guarded to poor - optimizing secondary prevention modalities now (BP, lipid anti-platelet therapy) - stopped prednisone today (3) Hypertensive emergency Current Visit: Yes Status: Acute Plan to address problem: - resolved - continue clonidine patch at 0.3mg qweek - continue prn IV rescue labetalol - added metoprolol re: tachycardia also - started on minoxidil by nephrology - BP's better controlled overall ....LTAC thereafter ......30' CCT Subjective Date of service: 09/20/16 Principal diagnosis: Acute resp failure on MVS; S/P Acute CVA; Acute Encephalopathy Interval history: (4) Obesity (BMI 35.0-39.9 without comorbidity) Current Visit: Yes Status: Chronic Plan to address problem: - adjust tube feeds per graphic engineer's recommendations - supportive and preventive skin care re: breakdown - to resume tube feeds today - continue reglan re: high residuals (5) Type 2 diabetes mellitus Current Visit: Yes Status: Chronic Qualifiers: Diabetes mellitus complication status: D Diabetes mellitus complication detail: D Diabetic retinopathy severity: D Proliferative retinopathy type: P Diabetes mellitus macular edema: D Diabetes mellitus half-way insulin use : D Laterality: L Chronic kidney disease stage: C Plan to address problem: - continue SSI - continue lantus at 8 units sq q24h (6) Leukocytosis (leucocytosis) Current Visit: Yes Status: Acute Qualifiers: Leukocytosis type: leukemoid reaction Qualified Code(s): D72.823 - Leukemoid reaction Plan to address problem: - afebrile - ? leukemoid reaction - ? steroid leucocytosis - continue empiric levaquin - get CRP & lactate and trend - tapering systemic steroids - follow clinically - C-diff infection assay negative - ID consulted and on flagyl & vancomycin - WBC continues trending down - cultures NGTD (7) Discharge planning issues Current Visit: Yes Status: Acute Plan to address problem: - she remains critically ill on life sustaining interventions including MVS and at risk for further acute deterioration including .....35' CCT Subjective Date of service: 09/21/16 Principal diagnosis: Acute resp failure on MVS; S/P Acute CVA; Acute Encephalopathy Interval history: Seen and examined at bedside; 24 hour events reviewed; nursing and respiratory care staff consulted; no adverse overnight events reported to me; remains on MVS ; AMS is persistent; Azotemia is persistent; no significant tracheostomy or PEG malfunction; no new issues otherwise Objective Vital Signs - 12hr 09/21/16 09/21/16 09/21/16 02:00 02:30 03:00 Temperature Pulse Rate 95 H 100 H 104 H Respiratory 12 14 15 Rate Blood Pressure 146/74 140/66 131/76 O2 Sat by Pulse 97 99 98 Oximetry O2 Sat by Pulse Oximetry [ Assessment] 09/21/16 09/21/16 09/21/16 03:21 03:30 03:45 Temperature 100.1 F H Pulse Rate 99 H 102 H Respiratory 15 Rate Blood Pressure 133/65 137/70 O2 Sat by Pulse 100 100 Oximetry O2 Sat by Pulse Oximetry [ Assessment] 09/21/16 09/21/16 09/21/16 03:52 04:00 04:30 Temperature Pulse Rate 100 H 99 H Respiratory 15 15 14 Rate Blood Pressure 136/64 132/63 O2 Sat by Pulse 98 98 Oximetry O2 Sat by Pulse Oximetry [ Assessment] 09/21/16 09/21/16 09/21/16 05:00 05:30 05:52 Temperature Pulse Rate 98 H 101 H Respiratory 14 15 Rate Blood Pressure 129/65 157/82 O2 Sat by Pulse 98 99 Oximetry O2 Sat by Pulse 100 Oximetry [ Assessment] 09/21/16 09/21/16 09/21/16 06:00 06:27 06:29 Temperature Pulse Rate 116 H 107 H 107 H Respiratory 20 Rate Blood Pressure 180/94 168/71 168/76 O2 Sat by Pulse 100 Oximetry O2 Sat by Pulse Oximetry [ Assessment] 09/21/16 09/21/16 09/21/16 06:30 07:00 07:30 Temperature Pulse Rate 111 H 111 H 104 H Respiratory 16 19 18 Rate Blood Pressure 162/83 155/86 169/80 O2 Sat by Pulse 100 100 100 Oximetry O2 Sat by Pulse Oximetry [ Assessment] 09/21/16 09/21/16 09/21/16 08:00 08:31 10:01 Temperature 98.9 F Pulse Rate 100 H 98 H 100 H Respiratory 16 19 22 Rate Blood Pressure 164/80 154/75 174/91 O2 Sat by Pulse 100 100 100 Oximetry O2 Sat by Pulse Oximetry [ Assessment] 09/21/16 13:22 Temperature Pulse Rate 111 H Respiratory Rate Blood Pressure 152/78 O2 Sat by Pulse Oximetry O2 Sat by Pulse Oximetry [ Assessment] Constitutional: no acute distress, other (encephalopathic) Eyes: non-icteric, other (tracheostomy tube in midline of neck) ENT: oropharynx moist Neck: supple, no lymphadenopathy Effort: normal Ascultation: Bilateral: diminished breath sounds, rhonchi Cardiovascular: regular rate and rhythm Gastrointestinal: normoactive bowel sounds, soft, non-tender, non-distended Integumentary: normal Extremities: no cyanosis, no edema, pulses normal, no ischemia or petechiae Neurologic: pupils equal and round, other (sedated) Psychiatric: other (unable to assess) CBC and BMP: 09/21/16 07:45 09/21/16 07:45 ABG, PT/INR, D-dimer: ABG POC ABG pH 7.308 (7.35-7.45) L 09/21/16 10:01 POC ABG pCO2 31.9 (35-45) L 09/21/16 10:01 POC ABG pO2 148 (80-105) H 09/21/16 10:01 POC ABG HCO3 16.0 09/21/16 10:01 POC ABG Total CO2 17 09/21/16 10:01 POC ABG O2 Sat 99 09/21/16 10:01 PT/INR, D-dimer PT 13.8 Sec. (12.2-14.9) 09/15/16 05:00 INR 1.01 (0.87-1.13) 09/15/16 05:00 Abnormal lab findings: Abnormal Labs 09/03/16 09/03/16 09/03/16 12:12 15:07 16:20 WBC RBC Hgb Hct MCV MCH MCHC RDW Plt Count Lymph % (Auto) [place] % (Auto) Lymph # [place] # Seg Neutrophils % Seg Neuts % (Manual) Lymphocytes % (Manual) Monocytes % (Manual) Seg Neutrophils # Seg Neutrophils # Man Lymphocytes # (Manual) Monocytes # (Manual) Fibrinogen dRVVT Confirm Interp Factor V Activity POC ABG pH 7.452 H POC ABG pCO2 POC ABG pO2 Sodium Potassium Chloride Carbon Dioxide BUN Creatinine Glucose POC Glucose 178 H Calcium Phosphorus 2.20 L Magnesium 1.60 L C-Reactive Protein Total Protein Albumin Triglycerides HDL Cholesterol Urine WBC (Auto) Urine Creatinine Urine Total Protein Rheumatoid Factor Complement C4 Crossmatch 09/03/16 09/03/16 09/03/16 17:57 17:58 23:50 WBC RBC Hgb Hct MCV MCH MCHC RDW Plt Count Lymph % (Auto) [place] % (Auto) Lymph # [place] # Seg Neutrophils % Seg Neuts % (Manual) Lymphocytes % (Manual) Monocytes % (Manual) Seg Neutrophils # Seg Neutrophils # Man Lymphocytes # (Manual) Monocytes # (Manual) Fibrinogen dRVVT Confirm Interp Factor V Activity POC ABG pH POC ABG pCO2 POC ABG pO2 Sodium Potassium Chloride Carbon Dioxide BUN Creatinine Glucose POC Glucose 162 H 145 H Calcium Phosphorus 2.30 L Magnesium C-Reactive Protein Total Protein Albumin Triglycerides HDL Cholesterol Urine WBC (Auto) Urine Creatinine Urine Total Protein Rheumatoid Factor Complement C4 Crossmatch 09/04/16 09/04/16 09/04/16 03:31 03:31 05:42 WBC RBC Hgb 9.7 L D Hct MCV 72 L MCH 23 L MCHC RDW 17.5 H Plt Count Lymph % (Auto) 11.1 L [place] % (Auto) Lymph # [place] # Seg Neutrophils % 84.3 H Seg Neuts % (Manual) Lymphocytes % (Manual) Monocytes % (Manual) Seg Neutrophils # 8.9 H Seg Neutrophils # Man Lymphocytes # (Manual) Monocytes # (Manual) Fibrinogen dRVVT Confirm Interp Factor V Activity POC ABG pH POC ABG pCO2 POC ABG pO2 Sodium 135 L Potassium 2.9 L* Chloride 97.2 L Carbon Dioxide 19 L BUN Creatinine 1.7 H Glucose 170 H POC Glucose 152 H Calcium Phosphorus Magnesium C-Reactive Protein Total Protein Albumin Triglycerides 160 H HDL Cholesterol 31 L Urine WBC (Auto) Urine Creatinine Urine Total Protein Rheumatoid Factor Complement C4 Crossmatch 09/04/16 09/04/16 09/04/16 11:34 17:46 23:29 WBC RBC Hgb Hct MCV MCH MCHC RDW Plt Count Lymph % (Auto) [place] % (Auto) Lymph # [place] # Seg Neutrophils % Seg Neuts % (Manual) Lymphocytes % (Manual) Monocytes % (Manual) Seg Neutrophils # Seg Neutrophils # Man Lymphocytes # (Manual) Monocytes # (Manual) Fibrinogen dRVVT Confirm Interp Factor V Activity POC ABG pH POC ABG pCO2 POC ABG pO2 Sodium Potassium Chloride Carbon Dioxide BUN Creatinine Glucose POC Glucose 165 H 210 H 139 H Calcium Phosphorus Magnesium C-Reactive Protein Total Protein Albumin Triglycerides HDL Cholesterol Urine WBC (Auto) Urine Creatinine Urine Total Protein Rheumatoid Factor Complement C4 Crossmatch 09/05/16 09/05/16 09/05/16 04:05 04:05 05:38 WBC RBC Hgb Hct MCV 76 L D MCH 23 L MCHC RDW 17.8 H Plt Count Lymph % (Auto) [place] % (Auto) Lymph # [place] # Seg Neutrophils % Seg Neuts % (Manual) Lymphocytes % (Manual) Monocytes % (Manual) Seg Neutrophils # Seg Neutrophils # Man Lymphocytes # (Manual) Monocytes # (Manual) Fibrinogen dRVVT Confirm Interp Factor V Activity POC ABG pH POC ABG pCO2 POC ABG pO2 Sodium 134 L Potassium Chloride Carbon Dioxide 18 L BUN Creatinine 1.8 H Glucose 192 H POC Glucose 175 H Calcium Phosphorus Magnesium C-Reactive Protein Total Protein Albumin Triglycerides HDL Cholesterol Urine WBC (Auto) Urine Creatinine Urine Total Protein Rheumatoid Factor Complement C4 Crossmatch 09/05/16 09/05/16 09/05/16 11:38 17:48 23:22 WBC RBC Hgb Hct MCV MCH MCHC RDW Plt Count Lymph % (Auto) [place] % (Auto) Lymph # [place] # Seg Neutrophils % Seg Neuts % (Manual) Lymphocytes % (Manual) Monocytes % (Manual) Seg Neutrophils # Seg Neutrophils # Man Lymphocytes # (Manual) Monocytes # (Manual) Fibrinogen dRVVT Confirm Interp Factor V Activity POC ABG pH POC ABG pCO2 POC ABG pO2 Sodium Potassium Chloride Carbon Dioxide BUN Creatinine Glucose POC Glucose 164 H 186 H 195 H Calcium Phosphorus Magnesium C-Reactive Protein Total Protein Albumin Triglycerides HDL Cholesterol Urine WBC (Auto) Urine Creatinine Urine Total Protein Rheumatoid Factor Complement C4 Crossmatch 09/06/16 09/06/16 09/06/16 04:12 05:59 07:32 WBC RBC Hgb Hct MCV MCH MCHC RDW Plt Count Lymph % (Auto) [place] % (Auto) Lymph # [place] # Seg Neutrophils % Seg Neuts % (Manual) Lymphocytes % (Manual) Monocytes % (Manual) Seg Neutrophils # Seg Neutrophils # Man Lymphocytes # (Manual) Monocytes # (Manual) Fibrinogen dRVVT Confirm Interp Factor V Activity POC ABG pH 7.514 H POC ABG pCO2 29.1 L POC ABG pO2 72 L Sodium 133 L Potassium 3.4 L Chloride 94.9 L Carbon Dioxide 19 L BUN 30 H Creatinine 2.1 H Glucose 139 H POC Glucose 146 H Calcium Phosphorus Magnesium C-Reactive Protein Total Protein Albumin Triglycerides HDL Cholesterol Urine WBC (Auto) Urine Creatinine Urine Total Protein Rheumatoid Factor Complement C4 Crossmatch 09/06/16 09/06/16 09/06/16 11:57 17:58 19:02 WBC RBC Hgb Hct MCV MCH MCHC RDW Plt Count Lymph % (Auto) [place] % (Auto) Lymph # [place] # Seg Neutrophils % Seg Neuts % (Manual) Lymphocytes % (Manual) Monocytes % (Manual) Seg Neutrophils # Seg Neutrophils # Man Lymphocytes # (Manual) Monocytes # (Manual) Fibrinogen dRVVT Confirm Interp Factor V Activity POC ABG pH 7.465 H POC ABG pCO2 32.0 L POC ABG pO2 Sodium Potassium Chloride Carbon Dioxide BUN Creatinine Glucose POC Glucose 165 H 160 H Calcium Phosphorus Magnesium C-Reactive Protein Total Protein Albumin Triglycerides HDL Cholesterol Urine WBC (Auto) Urine Creatinine Urine Total Protein Rheumatoid Factor Complement C4 Crossmatch 09/06/16 09/07/16 09/07/16 23:45 02:47 02:47 WBC RBC Hgb Hct MCV MCH MCHC RDW Plt Count Lymph % (Auto) [place] % (Auto) Lymph # [place] # Seg Neutrophils % Seg Neuts % (Manual) Lymphocytes % (Manual) Monocytes % (Manual) Seg Neutrophils # Seg Neutrophils # Man Lymphocytes # (Manual) Monocytes # (Manual) Fibrinogen dRVVT Confirm Interp Factor V Activity POC ABG pH POC ABG pCO2 POC ABG pO2 Sodium Potassium Chloride Carbon Dioxide BUN Creatinine Glucose POC Glucose 204 H Calcium Phosphorus Magnesium C-Reactive Protein Total Protein Albumin Triglycerides HDL Cholesterol Urine WBC (Auto) 68.0 H Urine Creatinine 106.1 H Urine Total Protein Rheumatoid Factor Complement C4 Crossmatch 09/07/16 09/07/16 09/07/16 04:50 06:19 06:39 WBC RBC Hgb Hct MCV MCH MCHC RDW Plt Count Lymph % (Auto) [place] % (Auto) Lymph # [place] # Seg Neutrophils % Seg Neuts % (Manual) Lymphocytes % (Manual) Monocytes % (Manual) Seg Neutrophils # Seg Neutrophils # Man Lymphocytes # (Manual) Monocytes # (Manual) Fibrinogen dRVVT Confirm Interp Factor V Activity POC ABG pH 7.457 H POC ABG pCO2 32.1 L POC ABG pO2 76 L Sodium 132 L Potassium Chloride 94.7 L Carbon Dioxide BUN 53 H Creatinine 2.9 H Glucose 151 H POC Glucose 149 H Calcium Phosphorus Magnesium C-Reactive Protein Total Protein Albumin Triglycerides HDL Cholesterol Urine WBC (Auto) Urine Creatinine Urine Total Protein Rheumatoid Factor Complement C4 Crossmatch 09/07/16 09/07/16 09/07/16 09:20 11:43 11:43 WBC 19.4 H RBC Hgb 8.3 L Hct 26.4 L D MCV 72 L D MCH 22 L MCHC RDW 17.9 H Plt Count Lymph % (Auto) 8.5 L [place] % (Auto) Lymph # [place] # 1.0 H Seg Neutrophils % 85.8 H Seg Neuts % (Manual) Lymphocytes % (Manual) Monocytes % (Manual) Seg Neutrophils # 16.6 H Seg Neutrophils # Man Lymphocytes # (Manual) Monocytes # (Manual) Fibrinogen dRVVT Confirm Interp Factor V Activity POC ABG pH POC ABG pCO2 POC ABG pO2 Sodium 134 L Potassium Chloride 97.2 L Carbon Dioxide 20 L BUN 58 H Creatinine 2.9 H Glucose 147 H POC Glucose Calcium Phosphorus 2.40 L Magnesium 2.40 H C-Reactive Protein Total Protein 5.8 L Albumin 2.2 L Triglycerides HDL Cholesterol Urine WBC (Auto) Urine Creatinine Urine Total Protein Rheumatoid Factor Complement C4 58 H Crossmatch 09/07/16 09/07/16 09/07/16 11:50 16:00 17:31 WBC RBC Hgb Hct MCV MCH MCHC RDW Plt Count Lymph % (Auto) [place] % (Auto) Lymph # [place] # Seg Neutrophils % Seg Neuts % (Manual) Lymphocytes % (Manual) Monocytes % (Manual) Seg Neutrophils # Seg Neutrophils # Man Lymphocytes # (Manual) Monocytes # (Manual) Fibrinogen dRVVT Confirm Interp Factor V Activity POC ABG pH POC ABG pCO2 POC ABG pO2 158 H Sodium Potassium Chloride Carbon Dioxide BUN Creatinine Glucose POC Glucose 175 H Calcium Phosphorus Magnesium C-Reactive Protein Total Protein Albumin Triglycerides HDL Cholesterol Urine WBC (Auto) Urine Creatinine 66.3 H Urine Total Protein Rheumatoid Factor Complement C4 Crossmatch 09/07/16 09/08/16 09/08/16 23:50 05:46 06:18 WBC 17.8 H RBC 3.58 L Hgb 8.1 L Hct 25.5 L MCV 71 L MCH 23 L MCHC RDW 18.4 H Plt Count Lymph % (Auto) [place] % (Auto) Lymph # [place] # Seg Neutrophils % Seg Neuts % (Manual) 92.0 H Lymphocytes % (Manual) 6.0 L Monocytes % (Manual) Seg Neutrophils # Seg Neutrophils # Man 16.4 H Lymphocytes # (Manual) 1.1 L Monocytes # (Manual) Fibrinogen dRVVT Confirm Interp Factor V Activity POC ABG pH POC ABG pCO2 34.3 L POC ABG pO2 71 L Sodium Potassium Chloride Carbon Dioxide BUN Creatinine Glucose POC Glucose 216 H Calcium Phosphorus Magnesium C-Reactive Protein Total Protein Albumin Triglycerides HDL Cholesterol Urine WBC (Auto) Urine Creatinine Urine Total Protein Rheumatoid Factor Complement C4 Crossmatch 09/08/16 09/08/16 09/08/16 06:18 06:51 10:55 WBC RBC Hgb Hct MCV MCH MCHC RDW Plt Count Lymph % (Auto) [place] % (Auto) Lymph # [place] # Seg Neutrophils % Seg Neuts % (Manual) Lymphocytes % (Manual) Monocytes % (Manual) Seg Neutrophils # Seg Neutrophils # Man Lymphocytes # (Manual) Monocytes # (Manual) Fibrinogen dRVVT Confirm Interp Factor V Activity POC ABG pH POC ABG pCO2 POC ABG pO2 Sodium 133 L Potassium Chloride 96.9 L Carbon Dioxide 20 L BUN 63 H Creatinine 2.7 H Glucose 195 H POC Glucose 204 H 169 H Calcium Phosphorus Magnesium C-Reactive Protein Total Protein Albumin Triglycerides HDL Cholesterol Urine WBC (Auto) Urine Creatinine Urine Total Protein Rheumatoid Factor Complement C4 Crossmatch 09/08/16 09/08/16 09/08/16 11:48 11:48 11:48 WBC RBC Hgb Hct MCV MCH MCHC RDW Plt Count Lymph % (Auto) [place] % (Auto) Lymph # [place] # Seg Neutrophils % Seg Neuts % (Manual) Lymphocytes % (Manual) Monocytes % (Manual) Seg Neutrophils # Seg Neutrophils # Man Lymphocytes # (Manual) Monocytes # (Manual) Fibrinogen 750 H dRVVT Confirm Interp Factor V Activity POC ABG pH POC ABG pCO2 POC ABG pO2 Sodium Potassium Chloride Carbon Dioxide BUN Creatinine Glucose POC Glucose Calcium Phosphorus Magnesium C-Reactive Protein 15.70 H Total Protein Albumin Triglycerides HDL Cholesterol Urine WBC (Auto) Urine Creatinine Urine Total Protein Rheumatoid Factor 24 H Complement C4 Crossmatch 09/08/16 09/08/16 09/09/16 15:35 18:25 00:24 WBC RBC Hgb Hct MCV MCH MCHC RDW Plt Count Lymph % (Auto) [place] % (Auto) Lymph # [place] # Seg Neutrophils % Seg Neuts % (Manual) Lymphocytes % (Manual) Monocytes % (Manual) Seg Neutrophils # Seg Neutrophils # Man Lymphocytes # (Manual) Monocytes # (Manual) Fibrinogen dRVVT Confirm Interp Factor V Activity 182 H POC ABG pH POC ABG pCO2 POC ABG pO2 Sodium Potassium Chloride Carbon Dioxide BUN Creatinine Glucose POC Glucose 184 H 216 H Calcium Phosphorus Magnesium C-Reactive Protein Total Protein Albumin Triglycerides HDL Cholesterol Urine WBC (Auto) Urine Creatinine Urine Total Protein Rheumatoid Factor Complement C4 Crossmatch 09/09/16 09/09/16 09/09/16 03:00 03:00 04:04 WBC 27.9 H RBC Hgb 8.7 L Hct 28.1 L MCV 72 L MCH 22 L MCHC RDW 18.4 H Plt Count 485 H Lymph % (Auto) [place] % (Auto) Lymph # [place] # Seg Neutrophils % Seg Neuts % (Manual) 77.0 H Lymphocytes % (Manual) 9.0 L Monocytes % (Manual) Seg Neutrophils # Seg Neutrophils # Man 21.5 H Lymphocytes # (Manual) Monocytes # (Manual) 2.0 H Fibrinogen dRVVT Confirm Interp Factor V Activity POC ABG pH POC ABG pCO2 POC ABG pO2 121 H Sodium 135 L Potassium Chloride 96.3 L Carbon Dioxide 21 L BUN 83 H Creatinine 3.0 H Glucose 135 H POC Glucose Calcium Phosphorus Magnesium C-Reactive Protein Total Protein Albumin Triglycerides HDL Cholesterol Urine WBC (Auto) Urine Creatinine Urine Total Protein Rheumatoid Factor Complement C4 Crossmatch 09/09/16 09/09/16 09/09/16 05:41 11:55 14:13 WBC RBC Hgb Hct MCV MCH MCHC RDW Plt Count Lymph % (Auto) [place] % (Auto) Lymph # [place] # Seg Neutrophils % Seg Neuts % (Manual) Lymphocytes % (Manual) Monocytes % (Manual) Seg Neutrophils # Seg Neutrophils # Man Lymphocytes # (Manual) Monocytes # (Manual) Fibrinogen dRVVT Confirm Interp Factor V Activity POC ABG pH POC ABG pCO2 POC ABG pO2 Sodium Potassium Chloride Carbon Dioxide BUN Creatinine Glucose POC Glucose 155 H 186 H Calcium Phosphorus Magnesium C-Reactive Protein Total Protein Albumin Triglycerides HDL Cholesterol Urine WBC (Auto) 25.0 H Urine Creatinine Urine Total Protein Rheumatoid Factor Complement C4 Crossmatch 09/09/16 09/09/16 09/10/16 17:33 23:13 05:09 WBC RBC Hgb Hct MCV MCH MCHC RDW Plt Count Lymph % (Auto) [place] % (Auto) Lymph # [place] # Seg Neutrophils % Seg Neuts % (Manual) Lymphocytes % (Manual) Monocytes % (Manual) Seg Neutrophils # Seg Neutrophils # Man Lymphocytes # (Manual) Monocytes # (Manual) Fibrinogen dRVVT Confirm Interp Factor V Activity POC ABG pH POC ABG pCO2 POC ABG pO2 74 L Sodium Potassium Chloride Carbon Dioxide BUN Creatinine Glucose POC Glucose 211 H 215 H Calcium Phosphorus Magnesium C-Reactive Protein Total Protein Albumin Triglycerides HDL Cholesterol Urine WBC (Auto) Urine Creatinine Urine Total Protein Rheumatoid Factor Complement C4 Crossmatch 09/10/16 09/10/16 09/10/16 05:17 05:17 11:31 WBC 15.8 H RBC 3.25 L Hgb 7.3 L Hct 22.9 L MCV 71 L MCH 23 L MCHC RDW 18.4 H Plt Count Lymph % (Auto) [place] % (Auto) Lymph # [place] # Seg Neutrophils % Seg Neuts % (Manual) 91.0 H Lymphocytes % (Manual) 4.0 L Monocytes % (Manual) Seg Neutrophils # Seg Neutrophils # Man 14.4 H Lymphocytes # (Manual) 0.6 L Monocytes # (Manual) Fibrinogen dRVVT Confirm Interp Factor V Activity POC ABG pH POC ABG pCO2 POC ABG pO2 Sodium Potassium Chloride Carbon Dioxide 21 L BUN 93 H Creatinine 2.9 H Glucose 146 H POC Glucose 188 H Calcium 8.1 L Phosphorus Magnesium C-Reactive Protein Total Protein Albumin Triglycerides HDL Cholesterol Urine WBC (Auto) Urine Creatinine Urine Total Protein Rheumatoid Factor Complement C4 Crossmatch 09/10/16 09/10/16 09/10/16 13:17 17:20 23:32 WBC RBC Hgb Hct MCV MCH MCHC RDW Plt Count Lymph % (Auto) [place] % (Auto) Lymph # [place] # Seg Neutrophils % Seg Neuts % (Manual) Lymphocytes % (Manual) Monocytes % (Manual) Seg Neutrophils # Seg Neutrophils # Man Lymphocytes # (Manual) Monocytes # (Manual) Fibrinogen dRVVT Confirm Interp Factor V Activity POC ABG pH POC ABG pCO2 POC ABG pO2 Sodium Potassium Chloride Carbon Dioxide BUN Creatinine Glucose POC Glucose 199 H 186 H Calcium Phosphorus Magnesium C-Reactive Protein Total Protein Albumin Triglycerides HDL Cholesterol Urine WBC (Auto) Urine Creatinine Urine Total Protein Rheumatoid Factor Complement C4 Crossmatch See Detail 09/11/16 09/11/16 09/11/16 05:10 05:10 05:17 WBC 28.4 H RBC Hgb 9.2 L Hct 29.3 L D MCV 73 L MCH 23 L MCHC RDW 18.9 H Plt Count 452 H Lymph % (Auto) [place] % (Auto) Lymph # [place] # Seg Neutrophils % Seg Neuts % (Manual) 89.5 H Lymphocytes % (Manual) 2.0 L Monocytes % (Manual) Seg Neutrophils # Seg Neutrophils # Man 25.4 H Lymphocytes # (Manual) 0.6 L Monocytes # (Manual) 1.3 H Fibrinogen dRVVT Confirm Interp Factor V Activity POC ABG pH POC ABG pCO2 POC ABG pO2 Sodium 136 L Potassium Chloride Carbon Dioxide 18 L BUN 107 H Creatinine 2.6 H Glucose 187 H POC Glucose 230 H Calcium 8.3 L Phosphorus Magnesium C-Reactive Protein Total Protein Albumin Triglycerides HDL Cholesterol Urine WBC (Auto) Urine Creatinine Urine Total Protein Rheumatoid Factor Complement C4 Crossmatch 09/11/16 09/11/16 09/11/16 05:55 12:02 17:32 WBC RBC Hgb Hct MCV MCH MCHC RDW Plt Count Lymph % (Auto) [place] % (Auto) Lymph # [place] # Seg Neutrophils % Seg Neuts % (Manual) Lymphocytes % (Manual) Monocytes % (Manual) Seg Neutrophils # Seg Neutrophils # Man Lymphocytes # (Manual) Monocytes # (Manual) Fibrinogen dRVVT Confirm Interp Factor V Activity POC ABG pH POC ABG pCO2 33.8 L POC ABG pO2 Sodium Potassium Chloride Carbon Dioxide BUN Creatinine Glucose POC Glucose 191 H 239 H Calcium Phosphorus Magnesium C-Reactive Protein Total Protein Albumin Triglycerides HDL Cholesterol Urine WBC (Auto) Urine Creatinine Urine Total Protein Rheumatoid Factor Complement C4 Crossmatch 09/11/16 09/12/16 09/12/16 23:52 05:09 05:32 WBC RBC Hgb Hct MCV MCH MCHC RDW Plt Count Lymph % (Auto) [place] % (Auto) Lymph # [place] # Seg Neutrophils % Seg Neuts % (Manual) Lymphocytes % (Manual) Monocytes % (Manual) Seg Neutrophils # Seg Neutrophils # Man Lymphocytes # (Manual) Monocytes # (Manual) Fibrinogen dRVVT Confirm Interp Factor V Activity POC ABG pH POC ABG pCO2 34.6 L POC ABG pO2 Sodium Potassium Chloride Carbon Dioxide BUN Creatinine Glucose POC Glucose 265 H 184 H Calcium Phosphorus Magnesium C-Reactive Protein Total Protein Albumin Triglycerides HDL Cholesterol Urine WBC (Auto) Urine Creatinine Urine Total Protein Rheumatoid Factor Complement C4 Crossmatch 09/12/16 09/12/16 09/12/16 06:45 06:45 07:22 WBC 31.7 H RBC 3.54 L Hgb 8.3 L Hct 25.9 L MCV 73 L MCH 23 L MCHC RDW 18.9 H Plt Count Lymph % (Auto) [place] % (Auto) Lymph # [place] # Seg Neutrophils % Seg Neuts % (Manual) 88.5 H Lymphocytes % (Manual) 4.5 L Monocytes % (Manual) Seg Neutrophils # Seg Neutrophils # Man 28.1 H Lymphocytes # (Manual) Monocytes # (Manual) 1.0 H Fibrinogen dRVVT Confirm Interp Factor V Activity POC ABG pH POC ABG pCO2 POC ABG pO2 Sodium Potassium Chloride Carbon Dioxide 20 L BUN 115 H Creatinine 2.7 H Glucose 165 H POC Glucose Calcium 8.0 L Phosphorus Magnesium C-Reactive Protein Total Protein Albumin Triglycerides 217 H HDL Cholesterol Urine WBC (Auto) Urine Creatinine Urine Total Protein Rheumatoid Factor Complement C4 Crossmatch 09/12/16 09/12/16 09/12/16 07:22 09:59 12:21 WBC RBC Hgb Hct MCV MCH MCHC RDW Plt Count Lymph % (Auto) [place] % (Auto) Lymph # [place] # Seg Neutrophils % Seg Neuts % (Manual) Lymphocytes % (Manual) Monocytes % (Manual) Seg Neutrophils # Seg Neutrophils # Man Lymphocytes # (Manual) Monocytes # (Manual) Fibrinogen dRVVT Confirm Interp Positive H Factor V Activity POC ABG pH POC ABG pCO2 POC ABG pO2 Sodium Potassium Chloride Carbon Dioxide BUN Creatinine Glucose POC Glucose 224 H Calcium Phosphorus Magnesium C-Reactive Protein 1.70 H Total Protein Albumin Triglycerides HDL Cholesterol Urine WBC (Auto) Urine Creatinine Urine Total Protein Rheumatoid Factor Complement C4 Crossmatch 09/12/16 09/12/16 09/13/16 16:51 23:28 04:00 WBC 45.0 H* RBC Hgb 9.4 L Hct MCV 75 L MCH 23 L MCHC RDW 19.0 H Plt Count 470 H Lymph % (Auto) [place] % (Auto) Lymph # [place] # Seg Neutrophils % Seg Neuts % (Manual) 89.0 H Lymphocytes % (Manual) 5.0 L Monocytes % (Manual) Seg Neutrophils # Seg Neutrophils # Man 40.1 H Lymphocytes # (Manual) Monocytes # (Manual) Fibrinogen dRVVT Confirm Interp Factor V Activity POC ABG pH POC ABG pCO2 POC ABG pO2 Sodium Potassium Chloride Carbon Dioxide BUN Creatinine Glucose POC Glucose 169 H 150 H Calcium Phosphorus Magnesium C-Reactive Protein Total Protein Albumin Triglycerides HDL Cholesterol Urine WBC (Auto) Urine Creatinine Urine Total Protein Rheumatoid Factor Complement C4 Crossmatch 09/13/16 09/13/16 09/13/16 04:00 11:26 17:31 WBC RBC Hgb Hct MCV MCH MCHC RDW Plt Count Lymph % (Auto) [place] % (Auto) Lymph # [place] # Seg Neutrophils % Seg Neuts % (Manual) Lymphocytes % (Manual) Monocytes % (Manual) Seg Neutrophils # Seg Neutrophils # Man Lymphocytes # (Manual) Monocytes # (Manual) Fibrinogen dRVVT Confirm Interp Factor V Activity POC ABG pH POC ABG pCO2 POC ABG pO2 Sodium Potassium Chloride Carbon Dioxide 20 L BUN 116 H Creatinine 3.0 H Glucose 172 H POC Glucose 140 H 183 H Calcium Phosphorus Magnesium C-Reactive Protein Total Protein 6.2 L Albumin 2.9 L Triglycerides HDL Cholesterol Urine WBC (Auto) Urine Creatinine Urine Total Protein Rheumatoid Factor Complement C4 Crossmatch 09/13/16 09/14/16 09/14/16 23:23 04:06 04:07 WBC 29.4 H RBC Hgb 8.9 L Hct 27.3 L MCV 75 L MCH 24 L MCHC RDW 19.1 H Plt Count Lymph % (Auto) [place] % (Auto) Lymph # [place] # Seg Neutrophils % Seg Neuts % (Manual) 84.0 H Lymphocytes % (Manual) 6.0 L Monocytes % (Manual) 9.0 H Seg Neutrophils # Seg Neutrophils # Man 24.7 H Lymphocytes # (Manual) Monocytes # (Manual) 2.6 H Fibrinogen dRVVT Confirm Interp Factor V Activity POC ABG pH 7.342 L POC ABG pCO2 POC ABG pO2 116 H Sodium Potassium Chloride Carbon Dioxide BUN Creatinine Glucose POC Glucose 154 H Calcium Phosphorus Magnesium C-Reactive Protein Total Protein Albumin Triglycerides HDL Cholesterol Urine WBC (Auto) Urine Creatinine Urine Total Protein Rheumatoid Factor Complement C4 Crossmatch 09/14/16 09/14/16 09/14/16 04:07 05:29 12:19 WBC RBC Hgb Hct MCV MCH MCHC RDW Plt Count Lymph % (Auto) [place] % (Auto) Lymph # [place] # Seg Neutrophils % Seg Neuts % (Manual) Lymphocytes % (Manual) Monocytes % (Manual) Seg Neutrophils # Seg Neutrophils # Man Lymphocytes # (Manual) Monocytes # (Manual) Fibrinogen dRVVT Confirm Interp Factor V Activity POC ABG pH POC ABG pCO2 POC ABG pO2 Sodium 136 L Potassium Chloride Carbon Dioxide 18 L BUN 121 H Creatinine 2.8 H Glucose 214 H POC Glucose 239 H 181 H Calcium Phosphorus Magnesium C-Reactive Protein Total Protein Albumin Triglycerides HDL Cholesterol Urine WBC (Auto) Urine Creatinine Urine Total Protein Rheumatoid Factor Complement C4 Crossmatch 09/14/16 09/14/16 09/15/16 18:12 23:37 05:00 WBC 26.1 H RBC 3.05 L Hgb 7.2 L Hct 22.9 L MCV 75 L MCH 24 L MCHC RDW 19.0 H Plt Count Lymph % (Auto) [place] % (Auto) Lymph # [place] # Seg Neutrophils % Seg Neuts % (Manual) Lymphocytes % (Manual) Monocytes % (Manual) Seg Neutrophils # Seg Neutrophils # Man Lymphocytes # (Manual) Monocytes # (Manual) Fibrinogen dRVVT Confirm Interp Factor V Activity POC ABG pH POC ABG pCO2 POC ABG pO2 Sodium Potassium Chloride Carbon Dioxide BUN Creatinine Glucose POC Glucose 266 H 154 H Calcium Phosphorus Magnesium C-Reactive Protein Total Protein Albumin Triglycerides HDL Cholesterol Urine WBC (Auto) Urine Creatinine Urine Total Protein Rheumatoid Factor Complement C4 Crossmatch 09/15/16 09/15/16 09/15/16 05:00 05:17 12:45 WBC RBC Hgb Hct MCV MCH MCHC RDW Plt Count Lymph % (Auto) [place] % (Auto) Lymph # [place] # Seg Neutrophils % Seg Neuts % (Manual) Lymphocytes % (Manual) Monocytes % (Manual) Seg Neutrophils # Seg Neutrophils # Man Lymphocytes # (Manual) Monocytes # (Manual) Fibrinogen dRVVT Confirm Interp Factor V Activity POC ABG pH POC ABG pCO2 POC ABG pO2 Sodium Potassium 5.2 H Chloride Carbon Dioxide 18 L BUN 139 H Creatinine 3.7 H Glucose 227 H POC Glucose 226 H 244 H Calcium 8.3 L Phosphorus Magnesium C-Reactive Protein Total Protein Albumin Triglycerides HDL Cholesterol Urine WBC (Auto) Urine Creatinine Urine Total Protein Rheumatoid Factor Complement C4 Crossmatch 09/15/16 09/15/16 09/15/16 14:32 17:33 23:35 WBC RBC Hgb Hct MCV MCH MCHC RDW Plt Count Lymph % (Auto) [place] % (Auto) Lymph # [place] # Seg Neutrophils % Seg Neuts % (Manual) Lymphocytes % (Manual) Monocytes % (Manual) Seg Neutrophils # Seg Neutrophils # Man Lymphocytes # (Manual) Monocytes # (Manual) Fibrinogen dRVVT Confirm Interp Factor V Activity POC ABG pH POC ABG pCO2 27.7 L POC ABG pO2 120 H Sodium Potassium Chloride Carbon Dioxide BUN Creatinine Glucose POC Glucose 232 H 167 H Calcium Phosphorus Magnesium C-Reactive Protein Total Protein Albumin Triglycerides HDL Cholesterol Urine WBC (Auto) Urine Creatinine Urine Total Protein Rheumatoid Factor Complement C4 Crossmatch 09/16/16 09/16/16 09/16/16 03:58 10:27 10:27 WBC 19.0 H RBC 2.77 L Hgb 6.5 L Hct 20.9 L MCV 76 L MCH 23 L MCHC RDW 19.3 H Plt Count Lymph % (Auto) 11.0 L [place] % (Auto) Lymph # [place] # 1.1 H Seg Neutrophils % 82.5 H Seg Neuts % (Manual) Lymphocytes % (Manual) Monocytes % (Manual) Seg Neutrophils # 15.7 H Seg Neutrophils # Man Lymphocytes # (Manual) Monocytes # (Manual) Fibrinogen dRVVT Confirm Interp Factor V Activity POC ABG pH POC ABG pCO2 POC ABG pO2 Sodium Potassium Chloride 109.3 H Carbon Dioxide 18 L BUN 139 H Creatinine 4.1 H Glucose 144 H POC Glucose 146 H Calcium 8.1 L Phosphorus Magnesium C-Reactive Protein Total Protein Albumin Triglycerides HDL Cholesterol Urine WBC (Auto) Urine Creatinine Urine Total Protein Rheumatoid Factor Complement C4 Crossmatch 09/16/16 09/16/16 09/16/16 12:04 12:10 13:55 WBC RBC Hgb Hct MCV MCH MCHC RDW Plt Count Lymph % (Auto) [place] % (Auto) Lymph # [place] # Seg Neutrophils % Seg Neuts % (Manual) Lymphocytes % (Manual) Monocytes % (Manual) Seg Neutrophils # Seg Neutrophils # Man Lymphocytes # (Manual) Monocytes # (Manual) Fibrinogen dRVVT Confirm Interp Factor V Activity POC ABG pH POC ABG pCO2 32.9 L POC ABG pO2 Sodium Potassium Chloride Carbon Dioxide BUN Creatinine Glucose POC Glucose 185 H Calcium Phosphorus Magnesium C-Reactive Protein Total Protein Albumin Triglycerides HDL Cholesterol Urine WBC (Auto) Urine Creatinine Urine Total Protein Rheumatoid Factor Complement C4 Crossmatch See Detail 09/16/16 09/16/16 09/16/16 17:55 19:19 23:48 WBC RBC Hgb Hct MCV MCH MCHC RDW Plt Count Lymph % (Auto) [place] % (Auto) Lymph # [place] # Seg Neutrophils % Seg Neuts % (Manual) Lymphocytes % (Manual) Monocytes % (Manual) Seg Neutrophils # Seg Neutrophils # Man Lymphocytes # (Manual) Monocytes # (Manual) Fibrinogen dRVVT Confirm Interp Factor V Activity POC ABG pH POC ABG pCO2 POC ABG pO2 Sodium Potassium Chloride Carbon Dioxide BUN Creatinine Glucose POC Glucose 222 H 107 H Calcium Phosphorus Magnesium C-Reactive Protein Total Protein Albumin Triglycerides HDL Cholesterol Urine WBC (Auto) Urine Creatinine 47.4 H Urine Total Protein 16 H Rheumatoid Factor Complement C4 Crossmatch 09/17/16 09/17/16 09/17/16 03:45 03:45 04:55 WBC 19.6 H RBC 3.41 L Hgb 8.5 L Hct 26.7 L MCV 78 L MCH 25 L MCHC RDW 19.9 H Plt Count Lymph % (Auto) 9.3 L [place] % (Auto) Lymph # [place] # 1.2 H Seg Neutrophils % 83.9 H Seg Neuts % (Manual) Lymphocytes % (Manual) Monocytes % (Manual) Seg Neutrophils # 16.4 H Seg Neutrophils # Man Lymphocytes # (Manual) Monocytes # (Manual) Fibrinogen dRVVT Confirm Interp Factor V Activity POC ABG pH POC ABG pCO2 POC ABG pO2 Sodium 146 H Potassium 5.1 H Chloride 110.9 H Carbon Dioxide 16 L BUN 146 H Creatinine 4.0 H Glucose 108 H POC Glucose 133 H Calcium Phosphorus Magnesium 3.00 H C-Reactive Protein Total Protein Albumin Triglycerides HDL Cholesterol Urine WBC (Auto) Urine Creatinine Urine Total Protein Rheumatoid Factor Complement C4 Crossmatch 09/17/16 09/17/16 09/17/16 11:15 17:33 23:47 WBC RBC Hgb Hct MCV MCH MCHC RDW Plt Count Lymph % (Auto) [place] % (Auto) Lymph # [place] # Seg Neutrophils % Seg Neuts % (Manual) Lymphocytes % (Manual) Monocytes % (Manual) Seg Neutrophils # Seg Neutrophils # Man Lymphocytes # (Manual) Monocytes # (Manual) Fibrinogen dRVVT Confirm Interp Factor V Activity POC ABG pH POC ABG pCO2 POC ABG pO2 Sodium Potassium Chloride Carbon Dioxide BUN Creatinine Glucose POC Glucose 176 H 246 H 148 H Calcium Phosphorus Magnesium C-Reactive Protein Total Protein Albumin Triglycerides HDL Cholesterol Urine WBC (Auto) Urine Creatinine Urine Total Protein Rheumatoid Factor Complement C4 Crossmatch 09/18/16 09/18/16 09/18/16 05:33 08:31 08:31 WBC 18.0 H RBC 3.17 L Hgb 9.0 L Hct 25.7 L MCV MCH MCHC 35 H RDW 20.4 H Plt Count Lymph % (Auto) [place] % (Auto) Lymph # [place] # Seg Neutrophils % Seg Neuts % (Manual) Lymphocytes % (Manual) Monocytes % (Manual) Seg Neutrophils # Seg Neutrophils # Man Lymphocytes # (Manual) Monocytes # (Manual) Fibrinogen dRVVT Confirm Interp Factor V Activity POC ABG pH POC ABG pCO2 POC ABG pO2 Sodium Potassium Chloride Carbon Dioxide 15 L BUN 124 H Creatinine 3.8 H Glucose POC Glucose 120 H Calcium 8.1 L Phosphorus Magnesium C-Reactive Protein Total Protein Albumin Triglycerides HDL Cholesterol Urine WBC (Auto) Urine Creatinine Urine Total Protein Rheumatoid Factor Complement C4 Crossmatch 09/18/16 09/18/16 09/18/16 12:03 15:34 17:50 WBC RBC Hgb Hct MCV MCH MCHC RDW Plt Count Lymph % (Auto) [place] % (Auto) Lymph # [place] # Seg Neutrophils % Seg Neuts % (Manual) Lymphocytes % (Manual) Monocytes % (Manual) Seg Neutrophils # Seg Neutrophils # Man Lymphocytes # (Manual) Monocytes # (Manual) Fibrinogen dRVVT Confirm Interp Factor V Activity POC ABG pH POC ABG pCO2 25.7 L POC ABG pO2 66 L Sodium Potassium Chloride Carbon Dioxide BUN Creatinine Glucose POC Glucose 156 H 220 H Calcium Phosphorus Magnesium C-Reactive Protein Total Protein Albumin Triglycerides HDL Cholesterol Urine WBC (Auto) Urine Creatinine Urine Total Protein Rheumatoid Factor Complement C4 Crossmatch 09/19/16 09/19/16 09/19/16 06:21 09:50 09:50 WBC 17.1 H RBC 3.49 L Hgb 9.0 L Hct 28.1 L MCV MCH 26 L MCHC RDW 20.8 H Plt Count Lymph % (Auto) 11.5 L [place] % (Auto) 7.5 H Lymph # [place] # 1.3 H Seg Neutrophils % 79.8 H Seg Neuts % (Manual) Lymphocytes % (Manual) Monocytes % (Manual) Seg Neutrophils # 13.7 H Seg Neutrophils # Man Lymphocytes # (Manual) Monocytes # (Manual) Fibrinogen dRVVT Confirm Interp Factor V Activity POC ABG pH POC ABG pCO2 POC ABG pO2 Sodium Potassium Chloride 108.6 H Carbon Dioxide 15 L BUN 125 H Creatinine 4.1 H Glucose 124 H POC Glucose 119 H Calcium Phosphorus Magnesium C-Reactive Protein Total Protein Albumin Triglycerides HDL Cholesterol Urine WBC (Auto) Urine Creatinine Urine Total Protein Rheumatoid Factor Complement C4 Crossmatch 09/19/16 09/19/16 09/19/16 11:25 17:53 23:36 WBC RBC Hgb Hct MCV MCH MCHC RDW Plt Count Lymph % (Auto) [place] % (Auto) Lymph # [place] # Seg Neutrophils % Seg Neuts % (Manual) Lymphocytes % (Manual) Monocytes % (Manual) Seg Neutrophils # Seg Neutrophils # Man Lymphocytes # (Manual) Monocytes # (Manual) Fibrinogen dRVVT Confirm Interp Factor V Activity POC ABG pH POC ABG pCO2 POC ABG pO2 Sodium Potassium Chloride Carbon Dioxide BUN Creatinine Glucose POC Glucose 160 H 245 H 121 H Calcium Phosphorus Magnesium C-Reactive Protein Total Protein Albumin Triglycerides HDL Cholesterol Urine WBC (Auto) Urine Creatinine Urine Total Protein Rheumatoid Factor Complement C4 Crossmatch 09/20/16 09/20/16 09/20/16 04:10 04:10 04:10 WBC 17.0 H RBC 3.21 L Hgb 8.2 L Hct 25.5 L MCV MCH 26 L MCHC RDW 20.9 H Plt Count Lymph % (Auto) [place] % (Auto) Lymph # [place] # Seg Neutrophils % Seg Neuts % (Manual) Lymphocytes % (Manual) Monocytes % (Manual) Seg Neutrophils # Seg Neutrophils # Man Lymphocytes # (Manual) Monocytes # (Manual) Fibrinogen dRVVT Confirm Interp Factor V Activity POC ABG pH POC ABG pCO2 POC ABG pO2 Sodium Potassium Chloride 111.0 H Carbon Dioxide 16 L BUN 129 H Creatinine 3.7 H Glucose 115 H POC Glucose Calcium 8.2 L Phosphorus Magnesium C-Reactive Protein Total Protein Albumin Triglycerides 243 H HDL Cholesterol Urine WBC (Auto) Urine Creatinine Urine Total Protein Rheumatoid Factor Complement C4 Crossmatch 09/20/16 09/20/16 09/20/16 05:40 11:52 16:50 WBC RBC Hgb Hct MCV MCH MCHC RDW Plt Count Lymph % (Auto) [place] % (Auto) Lymph # [place] # Seg Neutrophils % Seg Neuts % (Manual) Lymphocytes % (Manual) Monocytes % (Manual) Seg Neutrophils # Seg Neutrophils # Man Lymphocytes # (Manual) Monocytes # (Manual) Fibrinogen dRVVT Confirm Interp Factor V Activity POC ABG pH POC ABG pCO2 POC ABG pO2 Sodium Potassium Chloride Carbon Dioxide BUN Creatinine Glucose POC Glucose 131 H 183 H 236 H Calcium Phosphorus Magnesium C-Reactive Protein Total Protein Albumin Triglycerides HDL Cholesterol Urine WBC (Auto) Urine Creatinine Urine Total Protein Rheumatoid Factor Complement C4 Crossmatch 09/20/16 09/21/16 09/21/16 23:51 03:30 04:44 WBC RBC Hgb Hct MCV MCH MCHC RDW Plt Count Lymph % (Auto) [place] % (Auto) Lymph # [place] # Seg Neutrophils % Seg Neuts % (Manual) Lymphocytes % (Manual) Monocytes % (Manual) Seg Neutrophils # Seg Neutrophils # Man Lymphocytes # (Manual) Monocytes # (Manual) Fibrinogen dRVVT Confirm Interp Factor V Activity POC ABG pH POC ABG pCO2 POC ABG pO2 Sodium Potassium Chloride Carbon Dioxide BUN Creatinine Glucose POC Glucose 114 H 141 H Calcium Phosphorus Magnesium 2.70 H C-Reactive Protein Total Protein Albumin Triglycerides HDL Cholesterol Urine WBC (Auto) Urine Creatinine Urine Total Protein Rheumatoid Factor Complement C4 Crossmatch 09/21/16 09/21/16 09/21/16 07:45 07:45 10:01 WBC 13.8 H RBC 2.94 L Hgb 7.5 L Hct 23.5 L MCV MCH 26 L MCHC RDW 21.2 H Plt Count Lymph % (Auto) 6.9 L [place] % (Auto) 9.4 H Lymph # 0.9 L [place] # 1.3 H Seg Neutrophils % 83.2 H Seg Neuts % (Manual) Lymphocytes % (Manual) Monocytes % (Manual) Seg Neutrophils # 11.5 H Seg Neutrophils # Man Lymphocytes # (Manual) Monocytes # (Manual) Fibrinogen dRVVT Confirm Interp Factor V Activity POC ABG pH 7.308 L POC ABG pCO2 31.9 L POC ABG pO2 148 H Sodium 147 H Potassium Chloride 114.2 H Carbon Dioxide 15 L BUN 120 H Creatinine 3.9 H Glucose 156 H POC Glucose Calcium 8.2 L Phosphorus Magnesium C-Reactive Protein Total Protein Albumin Triglycerides HDL Cholesterol Urine WBC (Auto) Urine Creatinine Urine Total Protein Rheumatoid Factor Complement C4 Crossmatch Allied health notes reviewed: RT
[2016-09-21] MEDS: MORPHINE IV PRN ×2 (14:29→19:45)
[2016-09-21] MEDS: NORMODYNE IV PRN (15:26)
[2016-09-21] MEDS: APRESOLINE IV PRN (16:13)
[2016-09-21] MEDS: ZOFRAN IV PRN (17:00)
[2016-09-21] MEDS: CORDARONE PO SCH (22:12)
[2016-09-21] MEDS: LOPRESSOR IV PRN (22:49)
[2016-09-22] MEDS: NACL 0.9% 1000 ML 1,000 ML IV SCH ×2 (00:18→14:15)
[2016-09-22] MEDS: LOPRESSOR PO SCH (00:58)
[2016-09-22] MEDS: VANCOMYCIN PO FEEDTUBE SCH ×5 (00:58→23:59)
[2016-09-22] MEDS: HumuLIN R SUB-Q SCH ×4 (01:01→23:59)
[2016-09-22] MEDS: HEPARIN SUB-Q SCH ×3 (06:23→22:11)
[2016-09-22] MEDS: FLAGYL 500 MG/100 ML 500 MG/100 ML BAG IV SCH ×3 (06:30→22:08)
--- NOTE | 2016-09-22 07:16 | Progress Note ---
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 bun noted higher, likely due to steroids, will follow up crcl, may need [employer] for control of azotemia * Continue free H2O with tube feeds * Continue NaBicarb 1300mg TID * Vent management per critical care * Cardiology recs noted * Dose medications for renal function * Avoid potential nephrotoxins Subjective Date of service: 09/22/16 Principal diagnosis: Acute resp failure on MVS; S/P Acute CVA; Acute Encephalopathy Interval history: no new event Objective - Exam Narrative Exam: Gen. appearance: Patient lying in bed, no apparent distress, 4. restraints HEENT: Normocephalic, atraumatic, pupils equally round and reactive to light, extraocular movement intact, and no sclericterus,. No JVD or thyromegaly or nodule,neck supple, no carotid bruit ,mucous membranes moist, unable to examine oral cavity Heart: S1, S2, regular rate and rhythm Lungs: Clear to auscultation bilaterally, breathing comfortable Abdomen: Positive bowel sounds, nontender, nondistended, no organomegaly Extremity: No edema, cyanosis, clubbing Skin: No rash, nodules, warm, dry Neuro: Difficult to assess, facial droop, moves all 4 extremities - Vital Signs Vital signs: Vital Signs - 12hr 09/21/16 09/21/16 09/21/16 19:30 20:00 20:30 Temperature 99.6 F Pulse Rate 117 H 118 H 118 H Respiratory 15 19 16 Rate Blood Pressure 129/63 126/59 129/56 O2 Sat by Pulse 100 100 99 Oximetry O2 Sat by Pulse Oximetry [ Assessment] 09/21/16 09/21/16 09/21/16 21:00 21:30 22:00 Temperature Pulse Rate 122 H 125 H 127 H Respiratory 13 14 22 Rate Blood Pressure 122/64 145/69 131/71 O2 Sat by Pulse 100 99 99 Oximetry O2 Sat by Pulse Oximetry [ Assessment] 09/21/16 09/21/16 09/21/16 22:30 22:49 23:00 Temperature Pulse Rate 137 H 189 H 124 H Respiratory 21 20 Rate Blood Pressure 129/60 129/60 111/66 O2 Sat by Pulse 100 Oximetry O2 Sat by Pulse Oximetry [ Assessment] 09/21/16 09/21/16 09/22/16 23:31 23:44 00:00 Temperature 99.8 F H Pulse Rate 126 H 127 H Respiratory 18 18 Rate Blood Pressure 100/70 114/69 O2 Sat by Pulse 100 Oximetry O2 Sat by Pulse Oximetry [ Assessment] 09/22/16 09/22/16 09/22/16 00:31 00:58 01:00 Temperature Pulse Rate 123 H 124 H 130 H Respiratory 19 17 Rate Blood Pressure 119/65 119/65 128/74 O2 Sat by Pulse 99 100 Oximetry O2 Sat by Pulse 100 Oximetry [ Assessment] 09/22/16 09/22/16 09/22/16 01:31 02:00 02:30 Temperature Pulse Rate 120 H 123 H 121 H Respiratory 20 20 19 Rate Blood Pressure 120/62 143/80 133/73 O2 Sat by Pulse 100 100 100 Oximetry O2 Sat by Pulse Oximetry [ Assessment] 09/22/16 09/22/16 09/22/16 03:00 03:30 04:00 Temperature 99.7 F H Pulse Rate 124 H 118 H 124 H Respiratory 15 18 20 Rate Blood Pressure 148/84 144/75 160/76 O2 Sat by Pulse 100 100 100 Oximetry O2 Sat by Pulse Oximetry [ Assessment] 09/22/16 04:08 Temperature Pulse Rate 128 H Respiratory Rate Blood Pressure 160/76 O2 Sat by Pulse 100 Oximetry O2 Sat by Pulse Oximetry [ Assessment] - Lab 09/21/16 07:45 09/21/16 07:45 Most recent lab results Calcium 8.2 mg/dL (8.4-10.2) L 09/21/16 07:45 Phosphorus 4.30 mg/dL (2.5-4.5) D 09/08/16 06:18 Magnesium 2.70 mg/dL (1.7-2.3) H 09/21/16 03:30 Urine Creatinine 47.4 mg/dL (0.1-20.0) H 09/16/16 19:19 Urine Sodium 36 mEq/L 09/16/16 19:19 Urine Total Protein 16 mg/dL (5-11.8) H 09/16/16 19:19
--- NOTE | 2016-09-22 07:53 | Progress Note ---
Assessment and Plan - Patient Problems (1) Leukocytosis (leucocytosis) Current Visit: Yes Status: Acute Qualifiers: Leukocytosis type: leukemoid reaction Qualified Code(s): D72.823 - Leukemoid reaction Plan to address problem: 1. Continue presumptive Vancomycin/ Flagyl through 2016. 2. WBC count continues to normalize. 3. I will see the patient on an as-needed basis. Subjective Date of service: 09/22/16 Principal diagnosis: Acute resp failure on MVS; S/P Acute CVA; Acute Encephalopathy Interval history: Remains in ICU. No new events. Objective - Constitutional Vitals: Vital Signs Temp Pulse Resp BP Pulse Ox 99.7 F H 128 H 20 160/76 100 09/22/16 04:00 09/22/16 04:08 09/22/16 04:00 09/22/16 04:08 09/22/16 04:08 Temperature -Last 24 Hours Temperature 99.7 F Temperature 99.8 F Temperature 99.6 F Temperature 98.7 F Temperature 98.9 F General appearance: Present: other (restless, appears anxious) - EENT Eyes: no conjunctival injection - Neck Neck: other (trachesotomy, FiO2 30%) - Respiratory Respiratory: bilateral: rhonchi, negative: wheezing - Cardiovascular Rhythm: irregularly irregular (tachycardic to 120s) Extremities: No edema - Gastrointestinal General gastrointestinal: Present: soft, non-distended, other ((+) PEG in palce) - Genitourinary Female genitourinary: other ([place] with normal-appearing urine) - Integumentary Integumentary: no rash - Labs CBC & Chem 7: 09/21/16 07:45 09/21/16 07:45 Labs: Abnormal lab results 09/21/16 09/21/16 09/21/16 Range/Units 07:45 07:45 10:01 WBC 13.8 H (4.5-11.0) K/mm3 RBC 2.94 L (3.65-5.03) M/mm3 Hgb 7.5 L (10.1-14.3) gm/dl Hct 23.5 L (30.3-42.9) % MCH 26 L (28-32) pg RDW 21.2 H (13.2-15.2) % Lymph % (Auto) 6.9 L (13.4-35.0) % [place] % (Auto) 9.4 H (0.0-7.3) % Lymph # 0.9 L (1.2-5.4) K/mm3 [place] # 1.3 H (0.0-0.8) K/mm3 Seg Neutrophils % 83.2 H (40.0-70.0) % Seg Neutrophils # 11.5 H (1.8-7.7) K/mm3 POC ABG pH 7.308 L (7.35-7.45) POC ABG pCO2 31.9 L (35-45) POC ABG pO2 148 H (80-105) Sodium 147 H (137-145) mmol/L Chloride 114.2 H (98-107) mmol/L Carbon Dioxide 15 L (22-30) mmol/L BUN 120 H (7-17) mg/dL Creatinine 3.9 H (0.7-1.2) mg/dL Glucose 156 H (65-100) mg/dL POC Glucose (70-105) Calcium 8.2 L (8.4-10.2) mg/dL Vancomycin Trough (5.0-20.0) ug/mL 09/21/16 09/21/16 09/21/16 Range/Units 12:03 13:00 16:51 WBC (4.5-11.0) K/mm3 RBC (3.65-5.03) M/mm3 Hgb (10.1-14.3) gm/dl Hct (30.3-42.9) % MCH (28-32) pg RDW (13.2-15.2) % Lymph % (Auto) (13.4-35.0) % [place] % (Auto) (0.0-7.3) % Lymph # (1.2-5.4) K/mm3 [place] # (0.0-0.8) K/mm3 Seg Neutrophils % (40.0-70.0) % Seg Neutrophils # (1.8-7.7) K/mm3 POC ABG pH (7.35-7.45) POC ABG pCO2 (35-45) POC ABG pO2 (80-105) Sodium (137-145) mmol/L Chloride (98-107) mmol/L Carbon Dioxide (22-30) mmol/L BUN (7-17) mg/dL Creatinine (0.7-1.2) mg/dL Glucose (65-100) mg/dL POC Glucose 163 H 206 H (70-105) Calcium (8.4-10.2) mg/dL Vancomycin Trough 2.3 L (5.0-20.0) ug/mL 09/21/16 09/22/16 Range/Units 23:17 06:27 WBC (4.5-11.0) K/mm3 RBC (3.65-5.03) M/mm3 Hgb (10.1-14.3) gm/dl Hct (30.3-42.9) % MCH (28-32) pg RDW (13.2-15.2) % Lymph % (Auto) (13.4-35.0) % [place] % (Auto) (0.0-7.3) % Lymph # (1.2-5.4) K/mm3 [place] # (0.0-0.8) K/mm3 Seg Neutrophils % (40.0-70.0) % Seg Neutrophils # (1.8-7.7) K/mm3 POC ABG pH (7.35-7.45) POC ABG pCO2 (35-45) POC ABG pO2 (80-105) Sodium (137-145) mmol/L Chloride (98-107) mmol/L Carbon Dioxide (22-30) mmol/L BUN (7-17) mg/dL Creatinine (0.7-1.2) mg/dL Glucose (65-100) mg/dL POC Glucose 114 H 115 H (70-105) Calcium (8.4-10.2) mg/dL Vancomycin Trough (5.0-20.0) ug/mL Microbiology 09/13/16 10:30 Urine,[place] Urine Culture - Final NO GROWTH AFTER 48 HOURS 09/13/16 09:04 Peripheral/Venous Blood Culture - Final NO GROWTH AFTER 5 DAYS 09/13/16 08:39 Peripheral/Venous Blood Culture - Final NO GROWTH AFTER 5 DAYS 09/15/16 18:44 Stool Stool Occult Blood (HORTENCIA) - Final 09/13/16 14:06 Tracheal Aspirate Sputum Culture - Final 09/11/16 15:03 Stool C. difficile DNA Amplification - Final 09/10/16 10:58 Urine,Clean Catch Urine Culture - Preliminary NO GROWTH AFTER 48 HOURS 09/07/16 17:39 Tracheal Aspirate Sputum Culture - Final
--- NOTE | 2016-09-22 08:25 | Progress Note ---
Assessment and Plan Assessment and plan: --Acute hypoxic respiratory failure vent dependent/unable to wean s/p trach and PEG, continue PEG feeds --Paroxysmal A. 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/encephalopathy Aspirin/statin/supportive care --Aspiration pneumonia Continue vancomycin and Flagyl, ID following --Acute exacerbation of COPD; Nebulizers tapering dose of steroids antibiotics and ventilatory support, pulmonary following --Hypertensive emergency ; blood pressure is well-controlled --Acute on chronic kidney disease stage III ,Management per nephrology --leukocytosis; , Trending down , and a new current antibiotics --2 diabetes mellitus; Accu-Chek sliding scale coverage and ADA diet and insulin as needed --Moderate to severe protein calorie malnutrition with albumin of 2.2 Nutritional supplements, tube feeding, supportive care --DVT prophylaxis with heparin --Full CODE STATUS Discharge planning ; pending LTAC placement Critical Care time 31minutes The high probability of a clinically significant, sudden or life threatening deterioration of the [cardiovascular, pulmonary, infectious, renal and neurological] system(s) required my full and direct attention, intervention and personal management. The aggregate critical care time was [31] minutes. This time is in addition to time spent performing reported procedures but includes the following: [] Data Review and interpretation [] Patient assessment and monitoring of vital signs [] Documentation [] Medication orders and management History Interval history: Patient seen and evaluated Remains tachycardic heart rate ranging in 110s, on amiodarone Status post trach and PEG, awaiting LTAC placement Hospitalist Physical - Constitutional Vitals: Temp Pulse Resp BP Pulse Ox 97.9 F 122 H 20 147/81 100 09/22/16 07:59 09/22/16 08:15 09/22/16 04:00 09/22/16 08:15 09/22/16 08:16 General appearance: Present: no acute distress, well-nourished, obese - EENT Eyes: Present: PERRL, EOM intact ENT: other (tracheostomy) - Neck Neck: Present: supple, normal ROM - Respiratory Respiratory effort: normal Respiratory: bilateral: diminished, rhonchi, negative: rales, wheezing - Cardiovascular Rhythm: regular Heart Sounds: Present: S1 & S2 - Extremities Extremities: no ischemia, pulses intact - Abdominal General gastrointestinal: soft, non-tender, non-distended, normal bowel sounds, other (PEG tube in place) - Integumentary Integumentary: Present: clear, warm - Psychiatric Psychiatric: other ( noncommunicative) - Neurologic Neurologic: other (noncommunicative) Results - Labs CBC & Chem 7: 09/22/16 07:50 09/22/16 07:50 Labs: Laboratory Last Values WBC 13.8 K/mm3 (4.5-11.0) H 09/21/16 07:45 RBC 2.94 M/mm3 (3.65-5.03) L 09/21/16 07:45 Hgb 7.5 gm/dl (10.1-14.3) L 09/21/16 07:45 Hct 23.5 % (30.3-42.9) L 09/21/16 07:45 MCV 80 fl (79-97) 09/21/16 07:45 MCH 26 pg (28-32) L 09/21/16 07:45 MCHC 32 % (30-34) 09/21/16 07:45 RDW 21.2 % (13.2-15.2) H 09/21/16 07:45 Plt Count 246 K/mm3 (140-440) 09/21/16 07:45 Lymph % (Auto) 6.9 % (13.4-35.0) L 09/21/16 07:45 Jones % (Auto) 9.4 % (0.0-7.3) H 09/21/16 07:45 Eos % (Auto) 0.3 % (0.0-4.3) 09/21/16 07:45 Baso % (Auto) 0.2 % (0.0-1.8) 09/21/16 07:45 Lymph # 0.9 K/mm3 (1.2-5.4) L 09/21/16 07:45 Jones # 1.3 K/mm3 (0.0-0.8) H 09/21/16 07:45 Eos # 0.0 K/mm3 (0.0-0.4) 09/21/16 07:45 Baso # 0.0 K/mm3 (0.0-0.1) 09/21/16 07:45 Add Manual Diff Complete 09/14/16 04:07 Total Counted 100 07/26/17 04:07 Seg Neutrophils % 83.2 % (40.0-70.0) H 09/21/16 07:45 Seg Neuts % (Manual) 84.0 % (40.0-70.0) H 09/14/16 04:07 Band Neutrophils % 1.0 % 09/14/16 04:07 Lymphocytes % (Manual) 6.0 % (13.4-35.0) L 09/14/16 04:07 Reactive Lymphs % (Man) 0 % 09/14/16 04:07 Monocytes % (Manual) 9.0 % (0.0-7.3) H 09/14/16 04:07 Eosinophils % (Manual) 0 % (0.0-4.3) 09/14/16 04:07 Basophils % (Manual) 0 % (0.0-1.8) 09/14/16 04:07 Metamyelocytes % 0 % 09/14/16 04:07 Myelocytes % 0 % 09/14/16 04:07 Promyelocytes % 0 % 09/14/16 04:07 Blast Cells % 0 % 09/14/16 04:07 Nucleated RBC % Not Reportable 09/14/16 04:07 Seg Neutrophils # 11.5 K/mm3 (1.8-7.7) H 09/21/16 07:45 Seg Neutrophils # Man 24.7 K/mm3 (1.8-7.7) H 09/14/16 04:07 Band Neutrophils # 0.3 K/mm3 09/14/16 04:07 Lymphocytes # (Manual) 1.8 K/mm3 (1.2-5.4) 09/14/16 04:07 Abs React Lymphs (Man) 0.0 K/mm3 09/14/16 04:07 Monocytes # (Manual) 2.6 K/mm3 (0.0-0.8) H 09/14/16 04:07 Eosinophils # (Manual) 0.0 K/mm3 (0.0-0.4) 09/14/16 04:07 Basophils # (Manual) 0.0 K/mm3 (0.0-0.1) 09/14/16 04:07 Metamyelocytes # 0.0 K/mm3 09/14/16 04:07 Myelocytes # 0.0 K/mm3 09/14/16 04:07 Promyelocytes # 0.0 K/mm3 09/14/16 04:07 Blast Cells # 0.0 K/mm3 09/14/16 04:07 Pathologist Review 09/13/16 04:00 WBC Morphology Not Reportable 09/14/16 04:07 Hypersegmented Neuts Not Reportable 09/14/16 04:07 Hyposegmented Neuts Not Reportable 09/14/16 04:07 Hypogranular Neuts Not Reportable 09/14/16 04:07 Smudge Cells Not Reportable 09/14/16 04:07 Toxic Granulation Not Reportable 09/14/16 04:07 Toxic Vacuolation Not Reportable 09/14/16 04:07 Dohle Bodies Not Reportable 09/14/16 04:07 Pelger-Huet Anomaly Not Reportable 09/14/16 04:07 Jasmina Rods Not Reportable 09/14/16 04:07 Platelet Estimate Cons 09/14/16 04:07 Clumped Platelets Not Reportable 09/14/16 04:07 Plt Clumps, EDTA Not Reportable 09/14/16 04:07 Large Platelets Not Reportable 09/14/16 04:07 Giant Platelets Not Reportable 09/14/16 04:07 Platelet Satelliting Not Reportable 09/14/16 04:07 Plt Morphology Comment Not Reportable 09/14/16 04:07 RBC Morphology Not Reportable 09/14/16 04:07 Dimorphic RBCs Not Reportable 09/14/16 04:07 Polychromasia Not Reportable 09/14/16 04:07 Hypochromasia 1+ 09/14/16 04:07 Poikilocytosis Not Reportable 09/14/16 04:07 Anisocytosis 1+ 09/14/16 04:07 Microcytosis Not Reportable 09/14/16 04:07 Macrocytosis Not Reportable 09/14/16 04:07 Spherocytes Not Reportable 09/14/16 04:07 Pappenheimer Bodies Not Reportable 09/14/16 04:07 Sickle Cells Not Reportable 09/14/16 04:07 Target Cells Not Reportable 09/14/16 04:07 Tear Drop Cells Few 09/14/16 04:07 Ovalocytes Not Reportable 09/14/16 04:07 Helmet Cells Rare 09/14/16 04:07 Monet-Woodhull Bodies Not Reportable 09/14/16 04:07 Austin Rings Not Reportable 09/14/16 04:07 Chuck Cells Not Reportable 09/14/16 04:07 Bite Cells Not Reportable 09/14/16 04:07 Crenated Cell Not Reportable 09/14/16 04:07 Elliptocytes Not Reportable 09/14/16 04:07 Acanthocytes (Spur) Not Reportable 09/14/16 04:07 Rouleaux Not Reportable 09/14/16 04:07 Hemoglobin C Crystals Not Reportable 09/14/16 04:07 Schistocytes Not Reportable 09/14/16 04:07 Malaria parasites Not Reportable 09/14/16 04:07 ESR > 140.0 mm/Hr (0-20) 09/08/16 11:48 Jun Bodies Not Reportable 09/14/16 04:07 Hem Pathologist Commnt No 09/14/16 04:07 PT 13.8 Sec. (12.2-14.9) 09/15/16 05:00 INR 1.01 (0.87-1.13) 09/15/16 05:00 APTT 24.4 Sec. (24.2-36.6) 09/15/16 05:00 Thrombin Time 16.8 Sec. (15.1-19.6) 09/03/16 00:10 Fibrinogen 750 mg/dl (211-480) H 09/08/16 11:48 Lupus Anticoagulant see below 09/12/16 09:59 LA PTT Baseline See scanned report 09/12/16 09:59 dRVVT Confirm Interp Positive (Negative) H 09/12/16 09:59 dRVVT Screen 50:50 See scanned report 09/12/16 09:59 dRVVT Mix Interpret See scanned report 09/12/16 09:59 Protein C Antigen 122 % (70-140) 09/08/16 15:35 Free Protein S 97 % normal (50-147) 09/08/16 15:35 Total Protein S 109 % (70-140) 09/08/16 15:35 Antithrombin III Ag 100 % (80-120) 09/08/16 15:35 Factor V Activity 182 % (65-150) H 09/08/16 15:35 POC ABG pH 7.308 (7.35-7.45) L 09/21/16 10:01 POC ABG pCO2 31.9 (35-45) L 09/21/16 10:01 POC ABG pO2 148 (80-105) H 09/21/16 10:01 POC ABG HCO3 16.0 09/21/16 10:01 POC ABG Total CO2 17 09/21/16 10:01 POC ABG O2 Sat 99 09/21/16 10:01 POC ABG Base Excess -10 09/21/16 10:01 FiO2 30 % 09/21/16 10:01 Sodium 147 mmol/L (137-145) H 09/21/16 07:45 Potassium 4.4 mmol/L (3.6-5.0) 09/21/16 07:45 Chloride 114.2 mmol/L (98-107) H 09/21/16 07:45 Carbon Dioxide 15 mmol/L (22-30) L 09/21/16 07:45 Anion Gap 22 mmol/L 09/21/16 07:45 BUN 120 mg/dL (7-17) H 09/21/16 07:45 Creatinine 3.9 mg/dL (0.7-1.2) H 09/21/16 07:45 Estimated GFR 15 ml/min 09/21/16 07:45 BUN/Creatinine Ratio 30.76 % 09/21/16 07:45 Glucose 156 mg/dL (65-100) H 09/21/16 07:45 POC Glucose 115 (70-105) H 09/22/16 06:27 Osmolality 351 Mosm/kg 09/16/16 11:47 Lactic Acid 1.00 mmol/L (0.7-2.0) 09/13/16 11:30 Calcium 8.2 mg/dL (8.4-10.2) L 09/21/16 07:45 Phosphorus 4.30 mg/dL (2.5-4.5) D 09/08/16 06:18 Magnesium 2.70 mg/dL (1.7-2.3) H 09/21/16 03:30 Total Bilirubin 0.30 mg/dL (0.1-1.2) 09/13/16 04:00 AST 20 units/L (5-40) 09/13/16 04:00 ALT 18 units/L (7-56) 09/13/16 04:00 Alkaline Phosphatase 72 units/L (35-129) 09/13/16 04:00 Ammonia 27.0 umol/L (25-60) 09/07/16 08:37 Total Creatine Kinase 67 units/L (30-135) 09/03/16 11:26 CK-MB (CK-2) 1.4 ng/mL (0.0-4.0) 09/03/16 11:26 CK-MB (CK-2) Rel Index 2.0 (0-4) 09/03/16 11:26 Troponin T < 0.010 ng/mL (0.00-0.029) 09/06/16 10:43 C-Reactive Protein 1.70 mg/dL (0.00-1.30) H 09/12/16 07:22 Total Protein 6.2 g/dL (6.3-8.2) L 09/13/16 04:00 Albumin 2.9 g/dL (3.9-5) L 09/13/16 04:00 Albumin/Globulin Ratio 0.9 % 09/13/16 04:00 Triglycerides 243 mg/dL (2-149) H 09/20/16 04:10 Cholesterol 189 mg/dL (50-199) 09/04/16 03:31 LDL Cholesterol Direct 126 mg/dL (50-130) 09/04/16 03:31 HDL Cholesterol 31 mg/dL (40-59) L 09/04/16 03:31 Cholesterol/HDL Ratio 6.09 % 09/04/16 03:31 Angiotensin Convert Enz See scanned report 09/08/16 11:48 TSH 1.010 mlU/mL (0.270-4.200) 09/07/16 08:37 HCG, Qual Negative (Negative) 09/03/16 00:10 Urine Color Yellow (Yellow) 09/09/16 14:13 Urine Turbidity Slightly-cloudy (Clear) 09/09/16 14:13 Urine pH 5.0 (5.0-7.0) 09/09/16 14:13 Ur Specific [place] 1.012 (1.003-1.030) 09/09/16 14:13 Urine Protein 30 mg/dl mg/dL (Negative) 09/09/16 14:13 Urine Glucose (UA) Neg mg/dL (Negative) 09/09/16 14:13 Urine Ketones Neg mg/dL (Negative) 09/09/16 14:13 Urine Blood Lg (Negative) 09/09/16 14:13 Urine Nitrite Neg (Negative) 09/09/16 14:13 Urine Bilirubin Neg (Negative) 09/09/16 14:13 Urine Urobilinogen < 2.0 mg/dL (<2.0) 09/09/16 14:13 Ur Leukocyte Esterase Sm (Negative) 09/09/16 14:13 Urine WBC (Auto) 25.0 /HPF (0.0-6.0) H 09/09/16 14:13 Urine RBC (Auto) > 182.0 /HPF (0.0-6.0) 09/09/16 14:13 Urine Bacteria (Auto) 1+ /HPF (Negative) 09/09/16 14:13 Urine WBC Clumps 2+ /HPF 09/07/16 02:47 Hyaline Casts 4 /LPF 09/07/16 02:47 Urine Mucus Few /HPF 09/09/16 14:13 Urine Eosinophils None seen (None Seen) 09/07/16 16:00 Urine Creatinine 47.4 mg/dL (0.1-20.0) H 09/16/16 19:19 Urine Sodium 36 mEq/L 09/16/16 19:19 Urine Total Protein 16 mg/dL (5-11.8) H 09/16/16 19:19 Vancomycin Trough 2.3 ug/mL (5.0-20.0) L 09/21/16 13:00 Random Vancomycin 2.3 ug/mL (0-40.0) 09/09/16 03:00 Urine Opiates Screen Presumptive negative 09/03/16 15:11 Urine Methadone Screen Presumptive positive 09/03/16 15:11 Ur Barbiturates Screen Presumptive positive 09/03/16 15:11 Ur Phencyclidine Scrn Presumptive negative 09/03/16 15:11 Ur Amphetamines Screen Presumptive negative 09/03/16 15:11 U Benzodiazepines Scrn Presumptive negative 09/03/16 15:11 Urine Cocaine Screen Presumptive negative 09/03/16 15:11 U Marijuana (THC) Screen Presumptive positive 09/03/16 15:11 Drugs of Abuse Note Disclamer 09/03/16 15:11 Rheumatoid Factor 24 IU/ml (0-13) H 09/08/16 11:48 SAHIL Screen Negative (Negative) 09/07/16 09:20 Proteinase 3 (PR3) Ab <1.0 AI (<1.0) 09/07/16 09:20 Myeloperoxidase Ab <1.0 AI (<1.0) 09/07/16 09:20 Sjogren's Antibody <1.0 AI (<1.0) 09/08/16 15:35 Scl-70 Scleroderma Ab <1.0 AI (<1.0) 09/08/16 15:35 Centromere B Antibody <1.0 AI (<1.0) 09/08/16 12:02 Cardiolipid IgG Ab <14 GPL (<=14) 09/12/16 09:59 Cardiolipid IgA Ab <11 APL (<=11) 09/12/16 09:59 Cardiolipid IgM Ab <12 MPL (<=12) 09/12/16 09:59 Complement C3 148 mg/dL (90-180) 09/07/16 09:20 Complement C4 58 mg/dL (16-47) H 09/07/16 09:20 RPR Nonreactive (Nonreactive) 09/08/16 11:48 Hep Bs Antigen Non-reactive (Negative) 09/07/16 09:20 Hepatitis C Antibody Non-reactive (NonReactive) 09/07/16 09:20 HIV 1&2 Antibody Rapid Non react (Non React) 09/08/16 11:48 HIV P24 Antigen Non react (Non React) 09/08/16 11:48 Blood Type A POSITIVE 09/16/16 13:55 Antibody Screen TNR 09/16/16 13:55 DELORIS Antibody Screen Negative 09/16/16 13:55 Crossmatch See Detail 09/16/16 13:55
[2016-09-22] MEDS: LONITEN PO SCH (09:43)
[2016-09-22] MEDS: LEVEMIR (NF) SUB-Q SCH (09:43)
[2016-09-22] MEDS: ZOFRAN IV PRN (09:43)
[2016-09-22] MEDS: SODIUM BICARBONATE PO SCH ×3 (09:44→20:18)
[2016-09-22] MEDS: MORPHINE IV PRN (09:47)
[2016-09-22] MEDS: PROTONIX PO SCH ×2 (09:48→22:10)
[2016-09-22] MEDS: CORDARONE PO SCH ×2 (09:49→22:10)
[2016-09-22] MEDS ORDERED: CARDIZEM ONE (12:31)
--- NOTE | 2016-09-22 12:34 | Progress Note ---
Assessment and Plan - Patient Problems (1) Atrial fibrillation Current Visit: Yes Status: Acute Qualifiers: Atrial fibrillation type: A (2) Acute CVA (cerebrovascular accident) Current Visit: Yes Status: Acute (3) Acute blood loss anemia Current Visit: Yes Status: Acute (4) Acute respiratory failure with hypoxia Current Visit: Yes Status: Acute (5) Chronic renal insufficiency Current Visit: Yes Status: Acute Qualifiers: Chronic kidney disease stage: C (6) Diabetes Current Visit: Yes Status: Acute Qualifiers: Diabetes mellitus type: type 1 Diabetes mellitus complication status: with hyperglycemia Diabetes mellitus complication detail: D Diabetic retinopathy severity: D Proliferative retinopathy type: P Diabetes mellitus macular edema: D 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 Laterality: L Chronic kidney disease stage: C Qualified Code(s): E10.65 - Type 1 diabetes mellitus with hyperglycemia (7) Hypertensive emergency Current Visit: Yes Status: Acute Subjective Date of service: 09/22/16 Principal diagnosis: Acute resp failure on MVS; S/P Acute CVA; Acute Encephalopathy Interval history: on the vent' Objective Vital Signs Temp Pulse Resp BP Pulse Ox Pulse Ox 09/22/16 12:00 100.2 F H 129 H 27 H 107/56 100 09/22/16 11:30 127 H 27 H 96/48 100 09/22/16 11:00 118 H 32 H 82/41 100 09/22/16 10:30 130 H 24 123/64 100 09/22/16 10:00 124 H 33 H 151/82 100 09/22/16 09:30 125 H 31 H 148/82 100 09/22/16 09:00 121 H 16 141/79 100 09/22/16 08:30 124 H 16 146/87 100 09/22/16 08:16 100 09/22/16 08:15 122 H 147/81 100 09/22/16 08:00 122 H 15 147/81 100 09/22/16 07:59 97.9 F 09/22/16 07:30 119 H 21 129/72 100 09/22/16 07:00 131 H 16 147/71 100 09/22/16 06:30 129 H 22 173/94 100 09/22/16 06:00 127 H 16 162/81 100 09/22/16 05:30 126 H 14 164/82 100 09/22/16 05:00 124 H 21 159/78 100 09/22/16 04:30 126 H 21 161/82 100 09/22/16 04:08 128 H 160/76 100 09/22/16 04:00 99.7 F H 124 H 20 160/76 100 09/22/16 03:30 118 H 18 144/75 100 09/22/16 03:00 124 H 15 148/84 100 09/22/16 02:30 121 H 19 133/73 100 09/22/16 02:00 123 H 20 143/80 100 09/22/16 01:31 120 H 20 120/62 100 09/22/16 01:00 130 H 17 128/74 100 100 09/22/16 00:58 124 H 119/65 09/22/16 00:31 123 H 19 119/65 99 09/22/16 00:00 127 H 18 114/69 100 09/21/16 23:44 99.8 F H 09/21/16 23:31 126 H 18 100/70 09/21/16 23:00 124 H 20 111/66 09/21/16 22:49 189 H 129/60 09/21/16 22:30 137 H 21 129/60 100 09/21/16 22:00 127 H 22 131/71 99 09/21/16 21:30 125 H 14 145/69 99 09/21/16 21:00 122 H 13 122/64 100 09/21/16 20:30 118 H 16 129/56 99 09/21/16 20:00 99.6 F 118 H 19 126/59 100 09/21/16 19:30 117 H 15 129/63 100 09/21/16 19:00 117 H 17 119/57 99 09/21/16 18:30 115 H 25 H 113/59 99 09/21/16 18:00 119 H 24 121/75 100 09/21/16 17:50 99/46 09/21/16 17:30 114 H 15 103/55 09/21/16 17:00 116 H 28 H 111/47 97 100 09/21/16 16:59 115 H 101/44 100 09/21/16 16:30 113 H 25 H 101/44 99 09/21/16 16:13 116 H 189/86 09/21/16 16:00 98.7 F 115 H 35 H 191/92 96 09/21/16 15:30 107 H 35 H 166/82 98 09/21/16 15:26 124 H 167/86 09/21/16 15:00 126 H 35 H 176/74 95 09/21/16 14:30 125 H 29 H 165/79 96 09/21/16 14:15 127 H 27 H 173/82 99 09/21/16 14:00 130 H 28 H 164/82 96 09/21/16 13:30 120 H 27 H 157/80 96 09/21/16 13:22 111 H 152/78 09/21/16 13:00 111 H 20 171/81 100 - Physical Examination General: Other (intubated via trach) Neck: Positive: neck supple Cardiac: Positive: Tachycardia Lungs: Positive: Rhonchi Abdomen: Positive: Soft Extremities: Present: normal - Imaging and Cardiology EKG: image reviewed - Allied health notes Allied health notes reviewed: RT
[2016-09-22] MEDS ORDERED: CARDIZEM IV STA (12:42)
[2016-09-22 12:43] LABS: Hematocrit 24.7 % (30.3-42.9); Mean Corpuscular HGB Conc 32 % (30-34); Mean Corpuscular Hemoglobin 26 pg (28-32); Mean Corpuscular Volume 81 fl (79-97); Platelet Count 285 K/mm3 (140-440); Red Blood Count 3.04 M/mm3 (3.65-5.03)
[2016-09-22 12:46] LABS: Calcium 8.6 mg/dL (8.4-10.2)
[2016-09-22 12:47] LABS: Creatinine,Urine 54.8 mg/dL (0.1-20.0)
[2016-09-22 12:48] LABS: Red Cell Distribution Width 21.6 % (13.2-15.2)
--- NOTE | 2016-09-22 13:04 | Progress Note ---
Assessment and Plan - Patient Problems (1) Acute respiratory failure with hypoxia Current Visit: Yes Status: Acute Plan to address problem: - continue aspiration precautions / address VAP bundles - continue to wean oxygen for MAP > 94% - continue bronchodilators and pulmonary toilet - will continue to taper systemic steroids (no active needs pulmonary-[place]) - completed empiric levaquin dosing - s/p tracheostomy - continue daytime PSV trials as tolerated - will repeat CXR today (2) Acute CVA (cerebrovascular accident) Current Visit: Yes Status: Acute Plan to address problem: - out of tpA window (initially stopped due to uncontrolled HTN) - Left MCA teritory stroke with some midline shift on last CT - seen by neurology and prognosis for recovery of mental status guarded to poor - optimizing secondary prevention modalities now (BP, lipid anti-platelet therapy) - off systemic steroids now (started earlier for edema) - resume ASA and Plavix (3) Hypertensive emergency Current Visit: Yes Status: Acute Plan to address problem: - resolved - continue clonidine patch at 0.3mg qweek - continue prn IV rescue labetalol - added metoprolol re: tachycardia also - started on minoxidil by nephrology - BP's better controlled overall (4) Obesity (BMI 35.0-39.9 without comorbidity) Current Visit: Yes Status: Chronic Plan to address problem: - adjust tube feeds per pmo business analyst's recommendations - supportive and preventive skin care re: breakdown - to resume tube feeds today - continue reglan re: high residuals (5) Type 2 diabetes mellitus Current Visit: Yes Status: Chronic Qualifiers: Diabetes mellitus complication status: D Diabetes mellitus complication detail: D Diabetic retinopathy severity: D Proliferative retinopathy type: P Diabetes mellitus macular edema: D Diabetes mellitus penitentiary insulin use : D Laterality: L Chronic kidney disease stage: C Plan to address problem: - continue SSI - continue lantus at 8 units sq q24h (6) Leukocytosis (leucocytosis) Current Visit: Yes Status: Acute Qualifiers: Leukocytosis type: leukemoid reaction Qualified Code(s): D72.823 - Leukemoid reaction Plan to address problem: - afebrile - ? leukemoid reaction - ? steroid leucocytosis - continue empiric levaquin - get CRP & lactate and trend - off systemic steroids - follow clinically - C-diff infection assay negative - ID consulted and on flagyl & vancomycin - WBC up today but afebrile - following clinically - will get am lactate +/- CRP (7) Discharge planning issues Current Visit: Yes Status: Acute Plan to address problem: - she remains critically ill on life sustaining interventions including MVS and at risk for further acute deterioration including .....30' CCT Subjective Date of service: 09/22/16 Principal diagnosis: Acute resp failure on MVS; S/P Acute CVA; Acute Encephalopathy Interval history: Seen and examined at bedside; 24 hour events reviewed; nursing and respiratory care staff consulted; no adverse overnight events reported to me; resting in bed ; on PSV trial but tolerating tenuously at times; AMS is persistent; no gross bleeding but did have a large emesis; no seizure activity noted Objective Vital Signs - 12hr 09/22/16 09/22/16 09/22/16 01:31 02:00 02:30 Temperature Pulse Rate 120 H 123 H 121 H Respiratory 20 20 19 Rate Blood Pressure 120/62 143/80 133/73 O2 Sat by Pulse 100 100 100 Oximetry O2 Sat by Pulse Oximetry [ Assessment] 09/22/16 09/22/16 09/22/16 03:00 03:30 04:00 Temperature 99.7 F H Pulse Rate 124 H 118 H 124 H Respiratory 15 18 20 Rate Blood Pressure 148/84 144/75 160/76 O2 Sat by Pulse 100 100 100 Oximetry O2 Sat by Pulse Oximetry [ Assessment] 09/22/16 09/22/16 09/22/16 04:08 04:30 05:00 Temperature Pulse Rate 128 H 126 H 124 H Respiratory 21 21 Rate Blood Pressure 160/76 161/82 159/78 O2 Sat by Pulse 100 100 100 Oximetry O2 Sat by Pulse Oximetry [ Assessment] 09/22/16 09/22/16 09/22/16 05:30 06:00 06:30 Temperature Pulse Rate 126 H 127 H 129 H Respiratory 14 16 22 Rate Blood Pressure 164/82 162/81 173/94 O2 Sat by Pulse 100 100 100 Oximetry O2 Sat by Pulse Oximetry [ Assessment] 09/22/16 09/22/16 09/22/16 07:00 07:30 07:59 Temperature 97.9 F Pulse Rate 131 H 119 H Respiratory 16 21 Rate Blood Pressure 147/71 129/72 O2 Sat by Pulse 100 100 Oximetry O2 Sat by Pulse Oximetry [ Assessment] 09/22/16 09/22/16 09/22/16 08:00 08:15 08:16 Temperature Pulse Rate 122 H 122 H Respiratory 15 Rate Blood Pressure 147/81 147/81 O2 Sat by Pulse 100 100 Oximetry O2 Sat by Pulse 100 Oximetry [ Assessment] 09/22/16 09/22/16 09/22/16 08:30 09:00 09:30 Temperature Pulse Rate 124 H 121 H 125 H Respiratory 16 16 31 H Rate Blood Pressure 146/87 141/79 148/82 O2 Sat by Pulse 100 100 100 Oximetry O2 Sat by Pulse Oximetry [ Assessment] 09/22/16 09/22/16 09/22/16 10:00 10:30 11:00 Temperature Pulse Rate 124 H 130 H 118 H Respiratory 33 H 24 32 H Rate Blood Pressure 151/82 123/64 82/41 O2 Sat by Pulse 100 100 100 Oximetry O2 Sat by Pulse Oximetry [ Assessment] 09/22/16 09/22/16 11:30 12:00 Temperature 100.2 F H Pulse Rate 127 H 129 H Respiratory 27 H 27 H Rate Blood Pressure 96/48 107/56 O2 Sat by Pulse 100 100 Oximetry O2 Sat by Pulse Oximetry [ Assessment] Constitutional: no acute distress, other (encephalopathic) Eyes: non-icteric, other (tracheostomy tube in midline of neck) ENT: oropharynx moist Neck: supple, no lymphadenopathy Effort: normal Ascultation: Bilateral: diminished breath sounds, rhonchi Cardiovascular: regular rate and rhythm Gastrointestinal: normoactive bowel sounds, soft, non-tender, non-distended Integumentary: normal Extremities: no cyanosis, no edema, pulses normal, no ischemia or petechiae Neurologic: pupils equal and round, other (sedated) Psychiatric: other (unable to assess) CBC and BMP: 09/22/16 07:50 09/22/16 07:50 ABG, PT/INR, D-dimer: ABG POC ABG pH 7.308 (7.35-7.45) L 09/21/16 10:01 POC ABG pCO2 31.9 (35-45) L 09/21/16 10:01 POC ABG pO2 148 (80-105) H 09/21/16 10:01 POC ABG HCO3 16.0 09/21/16 10:01 POC ABG Total CO2 17 09/21/16 10:01 POC ABG O2 Sat 99 09/21/16 10:01 PT/INR, D-dimer PT 13.8 Sec. (12.2-14.9) 09/15/16 05:00 INR 1.01 (0.87-1.13) 09/15/16 05:00 Abnormal lab findings: Abnormal Labs 09/03/16 09/03/16 09/03/16 12:12 15:07 16:20 WBC RBC Hgb Hct MCV MCH MCHC RDW Plt Count Lymph % (Auto) [place] % (Auto) Lymph # [place] # Seg Neutrophils % Seg Neuts % (Manual) Lymphocytes % (Manual) Monocytes % (Manual) Seg Neutrophils # Seg Neutrophils # Man Lymphocytes # (Manual) Monocytes # (Manual) Fibrinogen dRVVT Confirm Interp Factor V Activity POC ABG pH 7.452 H POC ABG pCO2 POC ABG pO2 Sodium Potassium Chloride Carbon Dioxide BUN Creatinine Glucose POC Glucose 178 H Calcium Phosphorus 2.20 L Magnesium 1.60 L C-Reactive Protein Total Protein Albumin Triglycerides HDL Cholesterol Urine WBC (Auto) Urine Creatinine Urine Total Protein Vancomycin Trough Rheumatoid Factor Complement C4 Crossmatch 09/03/16 09/03/16 09/03/16 17:57 17:58 23:50 WBC RBC Hgb Hct MCV MCH MCHC RDW Plt Count Lymph % (Auto) [place] % (Auto) Lymph # [place] # Seg Neutrophils % Seg Neuts % (Manual) Lymphocytes % (Manual) Monocytes % (Manual) Seg Neutrophils # Seg Neutrophils # Man Lymphocytes # (Manual) Monocytes # (Manual) Fibrinogen dRVVT Confirm Interp Factor V Activity POC ABG pH POC ABG pCO2 POC ABG pO2 Sodium Potassium Chloride Carbon Dioxide BUN Creatinine Glucose POC Glucose 162 H 145 H Calcium Phosphorus 2.30 L Magnesium C-Reactive Protein Total Protein Albumin Triglycerides HDL Cholesterol Urine WBC (Auto) Urine Creatinine Urine Total Protein Vancomycin Trough Rheumatoid Factor Complement C4 Crossmatch 09/04/16 09/04/16 09/04/16 03:31 03:31 05:42 WBC RBC Hgb 9.7 L D Hct MCV 72 L MCH 23 L MCHC RDW 17.5 H Plt Count Lymph % (Auto) 11.1 L [place] % (Auto) Lymph # [place] # Seg Neutrophils % 84.3 H Seg Neuts % (Manual) Lymphocytes % (Manual) Monocytes % (Manual) Seg Neutrophils # 8.9 H Seg Neutrophils # Man Lymphocytes # (Manual) Monocytes # (Manual) Fibrinogen dRVVT Confirm Interp Factor V Activity POC ABG pH POC ABG pCO2 POC ABG pO2 Sodium 135 L Potassium 2.9 L* Chloride 97.2 L Carbon Dioxide 19 L BUN Creatinine 1.7 H Glucose 170 H POC Glucose 152 H Calcium Phosphorus Magnesium C-Reactive Protein Total Protein Albumin Triglycerides 160 H HDL Cholesterol 31 L Urine WBC (Auto) Urine Creatinine Urine Total Protein Vancomycin Trough Rheumatoid Factor Complement C4 Crossmatch 09/04/16 09/04/16 09/04/16 11:34 17:46 23:29 WBC RBC Hgb Hct MCV MCH MCHC RDW Plt Count Lymph % (Auto) [place] % (Auto) Lymph # [place] # Seg Neutrophils % Seg Neuts % (Manual) Lymphocytes % (Manual) Monocytes % (Manual) Seg Neutrophils # Seg Neutrophils # Man Lymphocytes # (Manual) Monocytes # (Manual) Fibrinogen dRVVT Confirm Interp Factor V Activity POC ABG pH POC ABG pCO2 POC ABG pO2 Sodium Potassium Chloride Carbon Dioxide BUN Creatinine Glucose POC Glucose 165 H 210 H 139 H Calcium Phosphorus Magnesium C-Reactive Protein Total Protein Albumin Triglycerides HDL Cholesterol Urine WBC (Auto) Urine Creatinine Urine Total Protein Vancomycin Trough Rheumatoid Factor Complement C4 Crossmatch 09/05/16 09/05/16 09/05/16 04:05 04:05 05:38 WBC RBC Hgb Hct MCV 76 L D MCH 23 L MCHC RDW 17.8 H Plt Count Lymph % (Auto) [place] % (Auto) Lymph # [place] # Seg Neutrophils % Seg Neuts % (Manual) Lymphocytes % (Manual) Monocytes % (Manual) Seg Neutrophils # Seg Neutrophils # Man Lymphocytes # (Manual) Monocytes # (Manual) Fibrinogen dRVVT Confirm Interp Factor V Activity POC ABG pH POC ABG pCO2 POC ABG pO2 Sodium 134 L Potassium Chloride Carbon Dioxide 18 L BUN Creatinine 1.8 H Glucose 192 H POC Glucose 175 H Calcium Phosphorus Magnesium C-Reactive Protein Total Protein Albumin Triglycerides HDL Cholesterol Urine WBC (Auto) Urine Creatinine Urine Total Protein Vancomycin Trough Rheumatoid Factor Complement C4 Crossmatch 09/05/16 09/05/16 09/05/16 11:38 17:48 23:22 WBC RBC Hgb Hct MCV MCH MCHC RDW Plt Count Lymph % (Auto) [place] % (Auto) Lymph # [place] # Seg Neutrophils % Seg Neuts % (Manual) Lymphocytes % (Manual) Monocytes % (Manual) Seg Neutrophils # Seg Neutrophils # Man Lymphocytes # (Manual) Monocytes # (Manual) Fibrinogen dRVVT Confirm Interp Factor V Activity POC ABG pH POC ABG pCO2 POC ABG pO2 Sodium Potassium Chloride Carbon Dioxide BUN Creatinine Glucose POC Glucose 164 H 186 H 195 H Calcium Phosphorus Magnesium C-Reactive Protein Total Protein Albumin Triglycerides HDL Cholesterol Urine WBC (Auto) Urine Creatinine Urine Total Protein Vancomycin Trough Rheumatoid Factor Complement C4 Crossmatch 09/06/16 09/06/16 09/06/16 04:12 05:59 07:32 WBC RBC Hgb Hct MCV MCH MCHC RDW Plt Count Lymph % (Auto) [place] % (Auto) Lymph # [place] # Seg Neutrophils % Seg Neuts % (Manual) Lymphocytes % (Manual) Monocytes % (Manual) Seg Neutrophils # Seg Neutrophils # Man Lymphocytes # (Manual) Monocytes # (Manual) Fibrinogen dRVVT Confirm Interp Factor V Activity POC ABG pH 7.514 H POC ABG pCO2 29.1 L POC ABG pO2 72 L Sodium 133 L Potassium 3.4 L Chloride 94.9 L Carbon Dioxide 19 L BUN 30 H Creatinine 2.1 H Glucose 139 H POC Glucose 146 H Calcium Phosphorus Magnesium C-Reactive Protein Total Protein Albumin Triglycerides HDL Cholesterol Urine WBC (Auto) Urine Creatinine Urine Total Protein Vancomycin Trough Rheumatoid Factor Complement C4 Crossmatch 09/06/16 09/06/16 09/06/16 11:57 17:58 19:02 WBC RBC Hgb Hct MCV MCH MCHC RDW Plt Count Lymph % (Auto) [place] % (Auto) Lymph # [place] # Seg Neutrophils % Seg Neuts % (Manual) Lymphocytes % (Manual) Monocytes % (Manual) Seg Neutrophils # Seg Neutrophils # Man Lymphocytes # (Manual) Monocytes # (Manual) Fibrinogen dRVVT Confirm Interp Factor V Activity POC ABG pH 7.465 H POC ABG pCO2 32.0 L POC ABG pO2 Sodium Potassium Chloride Carbon Dioxide BUN Creatinine Glucose POC Glucose 165 H 160 H Calcium Phosphorus Magnesium C-Reactive Protein Total Protein Albumin Triglycerides HDL Cholesterol Urine WBC (Auto) Urine Creatinine Urine Total Protein Vancomycin Trough Rheumatoid Factor Complement C4 Crossmatch 09/06/16 09/07/16 09/07/16 23:45 02:47 02:47 WBC RBC Hgb Hct MCV MCH MCHC RDW Plt Count Lymph % (Auto) [place] % (Auto) Lymph # [place] # Seg Neutrophils % Seg Neuts % (Manual) Lymphocytes % (Manual) Monocytes % (Manual) Seg Neutrophils # Seg Neutrophils # Man Lymphocytes # (Manual) Monocytes # (Manual) Fibrinogen dRVVT Confirm Interp Factor V Activity POC ABG pH POC ABG pCO2 POC ABG pO2 Sodium Potassium Chloride Carbon Dioxide BUN Creatinine Glucose POC Glucose 204 H Calcium Phosphorus Magnesium C-Reactive Protein Total Protein Albumin Triglycerides HDL Cholesterol Urine WBC (Auto) 68.0 H Urine Creatinine 106.1 H Urine Total Protein Vancomycin Trough Rheumatoid Factor Complement C4 Crossmatch 09/07/16 09/07/16 09/07/16 04:50 06:19 06:39 WBC RBC Hgb Hct MCV MCH MCHC RDW Plt Count Lymph % (Auto) [place] % (Auto) Lymph # [place] # Seg Neutrophils % Seg Neuts % (Manual) Lymphocytes % (Manual) Monocytes % (Manual) Seg Neutrophils # Seg Neutrophils # Man Lymphocytes # (Manual) Monocytes # (Manual) Fibrinogen dRVVT Confirm Interp Factor V Activity POC ABG pH 7.457 H POC ABG pCO2 32.1 L POC ABG pO2 76 L Sodium 132 L Potassium Chloride 94.7 L Carbon Dioxide BUN 53 H Creatinine 2.9 H Glucose 151 H POC Glucose 149 H Calcium Phosphorus Magnesium C-Reactive Protein Total Protein Albumin Triglycerides HDL Cholesterol Urine WBC (Auto) Urine Creatinine Urine Total Protein Vancomycin Trough Rheumatoid Factor Complement C4 Crossmatch 09/07/16 09/07/16 09/07/16 09:20 11:43 11:43 WBC 19.4 H RBC Hgb 8.3 L Hct 26.4 L D MCV 72 L D MCH 22 L MCHC RDW 17.9 H Plt Count Lymph % (Auto) 8.5 L [place] % (Auto) Lymph # [place] # 1.0 H Seg Neutrophils % 85.8 H Seg Neuts % (Manual) Lymphocytes % (Manual) Monocytes % (Manual) Seg Neutrophils # 16.6 H Seg Neutrophils # Man Lymphocytes # (Manual) Monocytes # (Manual) Fibrinogen dRVVT Confirm Interp Factor V Activity POC ABG pH POC ABG pCO2 POC ABG pO2 Sodium 134 L Potassium Chloride 97.2 L Carbon Dioxide 20 L BUN 58 H Creatinine 2.9 H Glucose 147 H POC Glucose Calcium Phosphorus 2.40 L Magnesium 2.40 H C-Reactive Protein Total Protein 5.8 L Albumin 2.2 L Triglycerides HDL Cholesterol Urine WBC (Auto) Urine Creatinine Urine Total Protein Vancomycin Trough Rheumatoid Factor Complement C4 58 H Crossmatch 09/07/16 09/07/16 09/07/16 11:50 16:00 17:31 WBC RBC Hgb Hct MCV MCH MCHC RDW Plt Count Lymph % (Auto) [place] % (Auto) Lymph # [place] # Seg Neutrophils % Seg Neuts % (Manual) Lymphocytes % (Manual) Monocytes % (Manual) Seg Neutrophils # Seg Neutrophils # Man Lymphocytes # (Manual) Monocytes # (Manual) Fibrinogen dRVVT Confirm Interp Factor V Activity POC ABG pH POC ABG pCO2 POC ABG pO2 158 H Sodium Potassium Chloride Carbon Dioxide BUN Creatinine Glucose POC Glucose 175 H Calcium Phosphorus Magnesium C-Reactive Protein Total Protein Albumin Triglycerides HDL Cholesterol Urine WBC (Auto) Urine Creatinine 66.3 H Urine Total Protein Vancomycin Trough Rheumatoid Factor Complement C4 Crossmatch 09/07/16 09/08/16 09/08/16 23:50 05:46 06:18 WBC 17.8 H RBC 3.58 L Hgb 8.1 L Hct 25.5 L MCV 71 L MCH 23 L MCHC RDW 18.4 H Plt Count Lymph % (Auto) [place] % (Auto) Lymph # [place] # Seg Neutrophils % Seg Neuts % (Manual) 92.0 H Lymphocytes % (Manual) 6.0 L Monocytes % (Manual) Seg Neutrophils # Seg Neutrophils # Man 16.4 H Lymphocytes # (Manual) 1.1 L Monocytes # (Manual) Fibrinogen dRVVT Confirm Interp Factor V Activity POC ABG pH POC ABG pCO2 34.3 L POC ABG pO2 71 L Sodium Potassium Chloride Carbon Dioxide BUN Creatinine Glucose POC Glucose 216 H Calcium Phosphorus Magnesium C-Reactive Protein Total Protein Albumin Triglycerides HDL Cholesterol Urine WBC (Auto) Urine Creatinine Urine Total Protein Vancomycin Trough Rheumatoid Factor Complement C4 Crossmatch 09/08/16 09/08/16 09/08/16 06:18 06:51 10:55 WBC RBC Hgb Hct MCV MCH MCHC RDW Plt Count Lymph % (Auto) [place] % (Auto) Lymph # [place] # Seg Neutrophils % Seg Neuts % (Manual) Lymphocytes % (Manual) Monocytes % (Manual) Seg Neutrophils # Seg Neutrophils # Man Lymphocytes # (Manual) Monocytes # (Manual) Fibrinogen dRVVT Confirm Interp Factor V Activity POC ABG pH POC ABG pCO2 POC ABG pO2 Sodium 133 L Potassium Chloride 96.9 L Carbon Dioxide 20 L BUN 63 H Creatinine 2.7 H Glucose 195 H POC Glucose 204 H 169 H Calcium Phosphorus Magnesium C-Reactive Protein Total Protein Albumin Triglycerides HDL Cholesterol Urine WBC (Auto) Urine Creatinine Urine Total Protein Vancomycin Trough Rheumatoid Factor Complement C4 Crossmatch 09/08/16 09/08/16 09/08/16 11:48 11:48 11:48 WBC RBC Hgb Hct MCV MCH MCHC RDW Plt Count Lymph % (Auto) [place] % (Auto) Lymph # [place] # Seg Neutrophils % Seg Neuts % (Manual) Lymphocytes % (Manual) Monocytes % (Manual) Seg Neutrophils # Seg Neutrophils # Man Lymphocytes # (Manual) Monocytes # (Manual) Fibrinogen 750 H dRVVT Confirm Interp Factor V Activity POC ABG pH POC ABG pCO2 POC ABG pO2 Sodium Potassium Chloride Carbon Dioxide BUN Creatinine Glucose POC Glucose Calcium Phosphorus Magnesium C-Reactive Protein 15.70 H Total Protein Albumin Triglycerides HDL Cholesterol Urine WBC (Auto) Urine Creatinine Urine Total Protein Vancomycin Trough Rheumatoid Factor 24 H Complement C4 Crossmatch 09/08/16 09/08/16 09/09/16 15:35 18:25 00:24 WBC RBC Hgb Hct MCV MCH MCHC RDW Plt Count Lymph % (Auto) [place] % (Auto) Lymph # [place] # Seg Neutrophils % Seg Neuts % (Manual) Lymphocytes % (Manual) Monocytes % (Manual) Seg Neutrophils # Seg Neutrophils # Man Lymphocytes # (Manual) Monocytes # (Manual) Fibrinogen dRVVT Confirm Interp Factor V Activity 182 H POC ABG pH POC ABG pCO2 POC ABG pO2 Sodium Potassium Chloride Carbon Dioxide BUN Creatinine Glucose POC Glucose 184 H 216 H Calcium Phosphorus Magnesium C-Reactive Protein Total Protein Albumin Triglycerides HDL Cholesterol Urine WBC (Auto) Urine Creatinine Urine Total Protein Vancomycin Trough Rheumatoid Factor Complement C4 Crossmatch 09/09/16 09/09/16 09/09/16 03:00 03:00 04:04 WBC 27.9 H RBC Hgb 8.7 L Hct 28.1 L MCV 72 L MCH 22 L MCHC RDW 18.4 H Plt Count 485 H Lymph % (Auto) [place] % (Auto) Lymph # [place] # Seg Neutrophils % Seg Neuts % (Manual) 77.0 H Lymphocytes % (Manual) 9.0 L Monocytes % (Manual) Seg Neutrophils # Seg Neutrophils # Man 21.5 H Lymphocytes # (Manual) Monocytes # (Manual) 2.0 H Fibrinogen dRVVT Confirm Interp Factor V Activity POC ABG pH POC ABG pCO2 POC ABG pO2 121 H Sodium 135 L Potassium Chloride 96.3 L Carbon Dioxide 21 L BUN 83 H Creatinine 3.0 H Glucose 135 H POC Glucose Calcium Phosphorus Magnesium C-Reactive Protein Total Protein Albumin Triglycerides HDL Cholesterol Urine WBC (Auto) Urine Creatinine Urine Total Protein Vancomycin Trough Rheumatoid Factor Complement C4 Crossmatch 09/09/16 09/09/16 09/09/16 05:41 11:55 14:13 WBC RBC Hgb Hct MCV MCH MCHC RDW Plt Count Lymph % (Auto) [place] % (Auto) Lymph # [place] # Seg Neutrophils % Seg Neuts % (Manual) Lymphocytes % (Manual) Monocytes % (Manual) Seg Neutrophils # Seg Neutrophils # Man Lymphocytes # (Manual) Monocytes # (Manual) Fibrinogen dRVVT Confirm Interp Factor V Activity POC ABG pH POC ABG pCO2 POC ABG pO2 Sodium Potassium Chloride Carbon Dioxide BUN Creatinine Glucose POC Glucose 155 H 186 H Calcium Phosphorus Magnesium C-Reactive Protein Total Protein Albumin Triglycerides HDL Cholesterol Urine WBC (Auto) 25.0 H Urine Creatinine Urine Total Protein Vancomycin Trough Rheumatoid Factor Complement C4 Crossmatch 09/09/16 09/09/16 09/10/16 17:33 23:13 05:09 WBC RBC Hgb Hct MCV MCH MCHC RDW Plt Count Lymph % (Auto) [place] % (Auto) Lymph # [place] # Seg Neutrophils % Seg Neuts % (Manual) Lymphocytes % (Manual) Monocytes % (Manual) Seg Neutrophils # Seg Neutrophils # Man Lymphocytes # (Manual) Monocytes # (Manual) Fibrinogen dRVVT Confirm Interp Factor V Activity POC ABG pH POC ABG pCO2 POC ABG pO2 74 L Sodium Potassium Chloride Carbon Dioxide BUN Creatinine Glucose POC Glucose 211 H 215 H Calcium Phosphorus Magnesium C-Reactive Protein Total Protein Albumin Triglycerides HDL Cholesterol Urine WBC (Auto) Urine Creatinine Urine Total Protein Vancomycin Trough Rheumatoid Factor Complement C4 Crossmatch 09/10/16 09/10/16 09/10/16 05:17 05:17 11:31 WBC 15.8 H RBC 3.25 L Hgb 7.3 L Hct 22.9 L MCV 71 L MCH 23 L MCHC RDW 18.4 H Plt Count Lymph % (Auto) [place] % (Auto) Lymph # [place] # Seg Neutrophils % Seg Neuts % (Manual) 91.0 H Lymphocytes % (Manual) 4.0 L Monocytes % (Manual) Seg Neutrophils # Seg Neutrophils # Man 14.4 H Lymphocytes # (Manual) 0.6 L Monocytes # (Manual) Fibrinogen dRVVT Confirm Interp Factor V Activity POC ABG pH POC ABG pCO2 POC ABG pO2 Sodium Potassium Chloride Carbon Dioxide 21 L BUN 93 H Creatinine 2.9 H Glucose 146 H POC Glucose 188 H Calcium 8.1 L Phosphorus Magnesium C-Reactive Protein Total Protein Albumin Triglycerides HDL Cholesterol Urine WBC (Auto) Urine Creatinine Urine Total Protein Vancomycin Trough Rheumatoid Factor Complement C4 Crossmatch 09/10/16 09/10/16 09/10/16 13:17 17:20 23:32 WBC RBC Hgb Hct MCV MCH MCHC RDW Plt Count Lymph % (Auto) [place] % (Auto) Lymph # [place] # Seg Neutrophils % Seg Neuts % (Manual) Lymphocytes % (Manual) Monocytes % (Manual) Seg Neutrophils # Seg Neutrophils # Man Lymphocytes # (Manual) Monocytes # (Manual) Fibrinogen dRVVT Confirm Interp Factor V Activity POC ABG pH POC ABG pCO2 POC ABG pO2 Sodium Potassium Chloride Carbon Dioxide BUN Creatinine Glucose POC Glucose 199 H 186 H Calcium Phosphorus Magnesium C-Reactive Protein Total Protein Albumin Triglycerides HDL Cholesterol Urine WBC (Auto) Urine Creatinine Urine Total Protein Vancomycin Trough Rheumatoid Factor Complement C4 Crossmatch See Detail 09/11/16 09/11/16 09/11/16 05:10 05:10 05:17 WBC 28.4 H RBC Hgb 9.2 L Hct 29.3 L D MCV 73 L MCH 23 L MCHC RDW 18.9 H Plt Count 452 H Lymph % (Auto) [place] % (Auto) Lymph # [place] # Seg Neutrophils % Seg Neuts % (Manual) 89.5 H Lymphocytes % (Manual) 2.0 L Monocytes % (Manual) Seg Neutrophils # Seg Neutrophils # Man 25.4 H Lymphocytes # (Manual) 0.6 L Monocytes # (Manual) 1.3 H Fibrinogen dRVVT Confirm Interp Factor V Activity POC ABG pH POC ABG pCO2 POC ABG pO2 Sodium 136 L Potassium Chloride Carbon Dioxide 18 L BUN 107 H Creatinine 2.6 H Glucose 187 H POC Glucose 230 H Calcium 8.3 L Phosphorus Magnesium C-Reactive Protein Total Protein Albumin Triglycerides HDL Cholesterol Urine WBC (Auto) Urine Creatinine Urine Total Protein Vancomycin Trough Rheumatoid Factor Complement C4 Crossmatch 09/11/16 09/11/16 09/11/16 05:55 12:02 17:32 WBC RBC Hgb Hct MCV MCH MCHC RDW Plt Count Lymph % (Auto) [place] % (Auto) Lymph # [place] # Seg Neutrophils % Seg Neuts % (Manual) Lymphocytes % (Manual) Monocytes % (Manual) Seg Neutrophils # Seg Neutrophils # Man Lymphocytes # (Manual) Monocytes # (Manual) Fibrinogen dRVVT Confirm Interp Factor V Activity POC ABG pH POC ABG pCO2 33.8 L POC ABG pO2 Sodium Potassium Chloride Carbon Dioxide BUN Creatinine Glucose POC Glucose 191 H 239 H Calcium Phosphorus Magnesium C-Reactive Protein Total Protein Albumin Triglycerides HDL Cholesterol Urine WBC (Auto) Urine Creatinine Urine Total Protein Vancomycin Trough Rheumatoid Factor Complement C4 Crossmatch 09/11/16 09/12/16 09/12/16 23:52 05:09 05:32 WBC RBC Hgb Hct MCV MCH MCHC RDW Plt Count Lymph % (Auto) [place] % (Auto) Lymph # [place] # Seg Neutrophils % Seg Neuts % (Manual) Lymphocytes % (Manual) Monocytes % (Manual) Seg Neutrophils # Seg Neutrophils # Man Lymphocytes # (Manual) Monocytes # (Manual) Fibrinogen dRVVT Confirm Interp Factor V Activity POC ABG pH POC ABG pCO2 34.6 L POC ABG pO2 Sodium Potassium Chloride Carbon Dioxide BUN Creatinine Glucose POC Glucose 265 H 184 H Calcium Phosphorus Magnesium C-Reactive Protein Total Protein Albumin Triglycerides HDL Cholesterol Urine WBC (Auto) Urine Creatinine Urine Total Protein Vancomycin Trough Rheumatoid Factor Complement C4 Crossmatch 09/12/16 09/12/16 09/12/16 06:45 06:45 07:22 WBC 31.7 H RBC 3.54 L Hgb 8.3 L Hct 25.9 L MCV 73 L MCH 23 L MCHC RDW 18.9 H Plt Count Lymph % (Auto) [place] % (Auto) Lymph # [place] # Seg Neutrophils % Seg Neuts % (Manual) 88.5 H Lymphocytes % (Manual) 4.5 L Monocytes % (Manual) Seg Neutrophils # Seg Neutrophils # Man 28.1 H Lymphocytes # (Manual) Monocytes # (Manual) 1.0 H Fibrinogen dRVVT Confirm Interp Factor V Activity POC ABG pH POC ABG pCO2 POC ABG pO2 Sodium Potassium Chloride Carbon Dioxide 20 L BUN 115 H Creatinine 2.7 H Glucose 165 H POC Glucose Calcium 8.0 L Phosphorus Magnesium C-Reactive Protein Total Protein Albumin Triglycerides 217 H HDL Cholesterol Urine WBC (Auto) Urine Creatinine Urine Total Protein Vancomycin Trough Rheumatoid Factor Complement C4 Crossmatch 09/12/16 09/12/16 09/12/16 07:22 09:59 12:21 WBC RBC Hgb Hct MCV MCH MCHC RDW Plt Count Lymph % (Auto) [place] % (Auto) Lymph # [place] # Seg Neutrophils % Seg Neuts % (Manual) Lymphocytes % (Manual) Monocytes % (Manual) Seg Neutrophils # Seg Neutrophils # Man Lymphocytes # (Manual) Monocytes # (Manual) Fibrinogen dRVVT Confirm Interp Positive H Factor V Activity POC ABG pH POC ABG pCO2 POC ABG pO2 Sodium Potassium Chloride Carbon Dioxide BUN Creatinine Glucose POC Glucose 224 H Calcium Phosphorus Magnesium C-Reactive Protein 1.70 H Total Protein Albumin Triglycerides HDL Cholesterol Urine WBC (Auto) Urine Creatinine Urine Total Protein Vancomycin Trough Rheumatoid Factor Complement C4 Crossmatch 09/12/16 09/12/16 09/13/16 16:51 23:28 04:00 WBC 45.0 H* RBC Hgb 9.4 L Hct MCV 75 L MCH 23 L MCHC RDW 19.0 H Plt Count 470 H Lymph % (Auto) [place] % (Auto) Lymph # [place] # Seg Neutrophils % Seg Neuts % (Manual) 89.0 H Lymphocytes % (Manual) 5.0 L Monocytes % (Manual) Seg Neutrophils # Seg Neutrophils # Man 40.1 H Lymphocytes # (Manual) Monocytes # (Manual) Fibrinogen dRVVT Confirm Interp Factor V Activity POC ABG pH POC ABG pCO2 POC ABG pO2 Sodium Potassium Chloride Carbon Dioxide BUN Creatinine Glucose POC Glucose 169 H 150 H Calcium Phosphorus Magnesium C-Reactive Protein Total Protein Albumin Triglycerides HDL Cholesterol Urine WBC (Auto) Urine Creatinine Urine Total Protein Vancomycin Trough Rheumatoid Factor Complement C4 Crossmatch 09/13/16 09/13/16 09/13/16 04:00 11:26 17:31 WBC RBC Hgb Hct MCV MCH MCHC RDW Plt Count Lymph % (Auto) [place] % (Auto) Lymph # [place] # Seg Neutrophils % Seg Neuts % (Manual) Lymphocytes % (Manual) Monocytes % (Manual) Seg Neutrophils # Seg Neutrophils # Man Lymphocytes # (Manual) Monocytes # (Manual) Fibrinogen dRVVT Confirm Interp Factor V Activity POC ABG pH POC ABG pCO2 POC ABG pO2 Sodium Potassium Chloride Carbon Dioxide 20 L BUN 116 H Creatinine 3.0 H Glucose 172 H POC Glucose 140 H 183 H Calcium Phosphorus Magnesium C-Reactive Protein Total Protein 6.2 L Albumin 2.9 L Triglycerides HDL Cholesterol Urine WBC (Auto) Urine Creatinine Urine Total Protein Vancomycin Trough Rheumatoid Factor Complement C4 Crossmatch 09/13/16 09/14/16 09/14/16 23:23 04:06 04:07 WBC 29.4 H RBC Hgb 8.9 L Hct 27.3 L MCV 75 L MCH 24 L MCHC RDW 19.1 H Plt Count Lymph % (Auto) [place] % (Auto) Lymph # [place] # Seg Neutrophils % Seg Neuts % (Manual) 84.0 H Lymphocytes % (Manual) 6.0 L Monocytes % (Manual) 9.0 H Seg Neutrophils # Seg Neutrophils # Man 24.7 H Lymphocytes # (Manual) Monocytes # (Manual) 2.6 H Fibrinogen dRVVT Confirm Interp Factor V Activity POC ABG pH 7.342 L POC ABG pCO2 POC ABG pO2 116 H Sodium Potassium Chloride Carbon Dioxide BUN Creatinine Glucose POC Glucose 154 H Calcium Phosphorus Magnesium C-Reactive Protein Total Protein Albumin Triglycerides HDL Cholesterol Urine WBC (Auto) Urine Creatinine Urine Total Protein Vancomycin Trough Rheumatoid Factor Complement C4 Crossmatch 09/14/16 09/14/16 09/14/16 04:07 05:29 12:19 WBC RBC Hgb Hct MCV MCH MCHC RDW Plt Count Lymph % (Auto) [place] % (Auto) Lymph # [place] # Seg Neutrophils % Seg Neuts % (Manual) Lymphocytes % (Manual) Monocytes % (Manual) Seg Neutrophils # Seg Neutrophils # Man Lymphocytes # (Manual) Monocytes # (Manual) Fibrinogen dRVVT Confirm Interp Factor V Activity POC ABG pH POC ABG pCO2 POC ABG pO2 Sodium 136 L Potassium Chloride Carbon Dioxide 18 L BUN 121 H Creatinine 2.8 H Glucose 214 H POC Glucose 239 H 181 H Calcium Phosphorus Magnesium C-Reactive Protein Total Protein Albumin Triglycerides HDL Cholesterol Urine WBC (Auto) Urine Creatinine Urine Total Protein Vancomycin Trough Rheumatoid Factor Complement C4 Crossmatch 09/14/16 09/14/16 09/15/16 18:12 23:37 05:00 WBC 26.1 H RBC 3.05 L Hgb 7.2 L Hct 22.9 L MCV 75 L MCH 24 L MCHC RDW 19.0 H Plt Count Lymph % (Auto) [place] % (Auto) Lymph # [place] # Seg Neutrophils % Seg Neuts % (Manual) Lymphocytes % (Manual) Monocytes % (Manual) Seg Neutrophils # Seg Neutrophils # Man Lymphocytes # (Manual) Monocytes # (Manual) Fibrinogen dRVVT Confirm Interp Factor V Activity POC ABG pH POC ABG pCO2 POC ABG pO2 Sodium Potassium Chloride Carbon Dioxide BUN Creatinine Glucose POC Glucose 266 H 154 H Calcium Phosphorus Magnesium C-Reactive Protein Total Protein Albumin Triglycerides HDL Cholesterol Urine WBC (Auto) Urine Creatinine Urine Total Protein Vancomycin Trough Rheumatoid Factor Complement C4 Crossmatch 09/15/16 09/15/16 09/15/16 05:00 05:17 12:45 WBC RBC Hgb Hct MCV MCH MCHC RDW Plt Count Lymph % (Auto) [place] % (Auto) Lymph # [place] # Seg Neutrophils % Seg Neuts % (Manual) Lymphocytes % (Manual) Monocytes % (Manual) Seg Neutrophils # Seg Neutrophils # Man Lymphocytes # (Manual) Monocytes # (Manual) Fibrinogen dRVVT Confirm Interp Factor V Activity POC ABG pH POC ABG pCO2 POC ABG pO2 Sodium Potassium 5.2 H Chloride Carbon Dioxide 18 L BUN 139 H Creatinine 3.7 H Glucose 227 H POC Glucose 226 H 244 H Calcium 8.3 L Phosphorus Magnesium C-Reactive Protein Total Protein Albumin Triglycerides HDL Cholesterol Urine WBC (Auto) Urine Creatinine Urine Total Protein Vancomycin Trough Rheumatoid Factor Complement C4 Crossmatch 09/15/16 09/15/16 09/15/16 14:32 17:33 23:35 WBC RBC Hgb Hct MCV MCH MCHC RDW Plt Count Lymph % (Auto) [place] % (Auto) Lymph # [place] # Seg Neutrophils % Seg Neuts % (Manual) Lymphocytes % (Manual) Monocytes % (Manual) Seg Neutrophils # Seg Neutrophils # Man Lymphocytes # (Manual) Monocytes # (Manual) Fibrinogen dRVVT Confirm Interp Factor V Activity POC ABG pH POC ABG pCO2 27.7 L POC ABG pO2 120 H Sodium Potassium Chloride Carbon Dioxide BUN Creatinine Glucose POC Glucose 232 H 167 H Calcium Phosphorus Magnesium C-Reactive Protein Total Protein Albumin Triglycerides HDL Cholesterol Urine WBC (Auto) Urine Creatinine Urine Total Protein Vancomycin Trough Rheumatoid Factor Complement C4 Crossmatch 09/16/16 09/16/16 09/16/16 03:58 10:27 10:27 WBC 19.0 H RBC 2.77 L Hgb 6.5 L Hct 20.9 L MCV 76 L MCH 23 L MCHC RDW 19.3 H Plt Count Lymph % (Auto) 11.0 L [place] % (Auto) Lymph # [place] # 1.1 H Seg Neutrophils % 82.5 H Seg Neuts % (Manual) Lymphocytes % (Manual) Monocytes % (Manual) Seg Neutrophils # 15.7 H Seg Neutrophils # Man Lymphocytes # (Manual) Monocytes # (Manual) Fibrinogen dRVVT Confirm Interp Factor V Activity POC ABG pH POC ABG pCO2 POC ABG pO2 Sodium Potassium Chloride 109.3 H Carbon Dioxide 18 L BUN 139 H Creatinine 4.1 H Glucose 144 H POC Glucose 146 H Calcium 8.1 L Phosphorus Magnesium C-Reactive Protein Total Protein Albumin Triglycerides HDL Cholesterol Urine WBC (Auto) Urine Creatinine Urine Total Protein Vancomycin Trough Rheumatoid Factor Complement C4 Crossmatch 09/16/16 09/16/16 09/16/16 12:04 12:10 13:55 WBC RBC Hgb Hct MCV MCH MCHC RDW Plt Count Lymph % (Auto) [place] % (Auto) Lymph # [place] # Seg Neutrophils % Seg Neuts % (Manual) Lymphocytes % (Manual) Monocytes % (Manual) Seg Neutrophils # Seg Neutrophils # Man Lymphocytes # (Manual) Monocytes # (Manual) Fibrinogen dRVVT Confirm Interp Factor V Activity POC ABG pH POC ABG pCO2 32.9 L POC ABG pO2 Sodium Potassium Chloride Carbon Dioxide BUN Creatinine Glucose POC Glucose 185 H Calcium Phosphorus Magnesium C-Reactive Protein Total Protein Albumin Triglycerides HDL Cholesterol Urine WBC (Auto) Urine Creatinine Urine Total Protein Vancomycin Trough Rheumatoid Factor Complement C4 Crossmatch See Detail 09/16/16 09/16/16 09/16/16 17:55 19:19 23:48 WBC RBC Hgb Hct MCV MCH MCHC RDW Plt Count Lymph % (Auto) [place] % (Auto) Lymph # [place] # Seg Neutrophils % Seg Neuts % (Manual) Lymphocytes % (Manual) Monocytes % (Manual) Seg Neutrophils # Seg Neutrophils # Man Lymphocytes # (Manual) Monocytes # (Manual) Fibrinogen dRVVT Confirm Interp Factor V Activity POC ABG pH POC ABG pCO2 POC ABG pO2 Sodium Potassium Chloride Carbon Dioxide BUN Creatinine Glucose POC Glucose 222 H 107 H Calcium Phosphorus Magnesium C-Reactive Protein Total Protein Albumin Triglycerides HDL Cholesterol Urine WBC (Auto) Urine Creatinine 47.4 H Urine Total Protein 16 H Vancomycin Trough Rheumatoid Factor Complement C4 Crossmatch 09/17/16 09/17/16 09/17/16 03:45 03:45 04:55 WBC 19.6 H RBC 3.41 L Hgb 8.5 L Hct 26.7 L MCV 78 L MCH 25 L MCHC RDW 19.9 H Plt Count Lymph % (Auto) 9.3 L [place] % (Auto) Lymph # [place] # 1.2 H Seg Neutrophils % 83.9 H Seg Neuts % (Manual) Lymphocytes % (Manual) Monocytes % (Manual) Seg Neutrophils # 16.4 H Seg Neutrophils # Man Lymphocytes # (Manual) Monocytes # (Manual) Fibrinogen dRVVT Confirm Interp Factor V Activity POC ABG pH POC ABG pCO2 POC ABG pO2 Sodium 146 H Potassium 5.1 H Chloride 110.9 H Carbon Dioxide 16 L BUN 146 H Creatinine 4.0 H Glucose 108 H POC Glucose 133 H Calcium Phosphorus Magnesium 3.00 H C-Reactive Protein Total Protein Albumin Triglycerides HDL Cholesterol Urine WBC (Auto) Urine Creatinine Urine Total Protein Vancomycin Trough Rheumatoid Factor Complement C4 Crossmatch 09/17/16 09/17/16 09/17/16 11:15 17:33 23:47 WBC RBC Hgb Hct MCV MCH MCHC RDW Plt Count Lymph % (Auto) [place] % (Auto) Lymph # [place] # Seg Neutrophils % Seg Neuts % (Manual) Lymphocytes % (Manual) Monocytes % (Manual) Seg Neutrophils # Seg Neutrophils # Man Lymphocytes # (Manual) Monocytes # (Manual) Fibrinogen dRVVT Confirm Interp Factor V Activity POC ABG pH POC ABG pCO2 POC ABG pO2 Sodium Potassium Chloride Carbon Dioxide BUN Creatinine Glucose POC Glucose 176 H 246 H 148 H Calcium Phosphorus Magnesium C-Reactive Protein Total Protein Albumin Triglycerides HDL Cholesterol Urine WBC (Auto) Urine Creatinine Urine Total Protein Vancomycin Trough Rheumatoid Factor Complement C4 Crossmatch 09/18/16 09/18/16 09/18/16 05:33 08:31 08:31 WBC 18.0 H RBC 3.17 L Hgb 9.0 L Hct 25.7 L MCV MCH MCHC 35 H RDW 20.4 H Plt Count Lymph % (Auto) [place] % (Auto) Lymph # [place] # Seg Neutrophils % Seg Neuts % (Manual) Lymphocytes % (Manual) Monocytes % (Manual) Seg Neutrophils # Seg Neutrophils # Man Lymphocytes # (Manual) Monocytes # (Manual) Fibrinogen dRVVT Confirm Interp Factor V Activity POC ABG pH POC ABG pCO2 POC ABG pO2 Sodium Potassium Chloride Carbon Dioxide 15 L BUN 124 H Creatinine 3.8 H Glucose POC Glucose 120 H Calcium 8.1 L Phosphorus Magnesium C-Reactive Protein Total Protein Albumin Triglycerides HDL Cholesterol Urine WBC (Auto) Urine Creatinine Urine Total Protein Vancomycin Trough Rheumatoid Factor Complement C4 Crossmatch 09/18/16 09/18/1617 12:03 15:34 17:50 WBC RBC Hgb Hct MCV MCH MCHC RDW Plt Count Lymph % (Auto) [place] % (Auto) Lymph # [place] # Seg Neutrophils % Seg Neuts % (Manual) Lymphocytes % (Manual) Monocytes % (Manual) Seg Neutrophils # Seg Neutrophils # Man Lymphocytes # (Manual) Monocytes # (Manual) Fibrinogen dRVVT Confirm Interp Factor V Activity POC ABG pH POC ABG pCO2 25.7 L POC ABG pO2 66 L Sodium Potassium Chloride Carbon Dioxide BUN Creatinine Glucose POC Glucose 156 H 220 H Calcium Phosphorus Magnesium C-Reactive Protein Total Protein Albumin Triglycerides HDL Cholesterol Urine WBC (Auto) Urine Creatinine Urine Total Protein Vancomycin Trough Rheumatoid Factor Complement C4 Crossmatch 09/19/16 09/19/16 09/19/16 06:21 09:50 09:50 WBC 17.1 H RBC 3.49 L Hgb 9.0 L Hct 28.1 L MCV MCH 26 L MCHC RDW 20.8 H Plt Count Lymph % (Auto) 11.5 L [place] % (Auto) 7.5 H Lymph # [place] # 1.3 H Seg Neutrophils % 79.8 H Seg Neuts % (Manual) Lymphocytes % (Manual) Monocytes % (Manual) Seg Neutrophils # 13.7 H Seg Neutrophils # Man Lymphocytes # (Manual) Monocytes # (Manual) Fibrinogen dRVVT Confirm Interp Factor V Activity POC ABG pH POC ABG pCO2 POC ABG pO2 Sodium Potassium Chloride 108.6 H Carbon Dioxide 15 L BUN 125 H Creatinine 4.1 H Glucose 124 H POC Glucose 119 H Calcium Phosphorus Magnesium C-Reactive Protein Total Protein Albumin Triglycerides HDL Cholesterol Urine WBC (Auto) Urine Creatinine Urine Total Protein Vancomycin Trough Rheumatoid Factor Complement C4 Crossmatch 09/19/16 09/19/16 09/19/16 11:25 17:53 23:36 WBC RBC Hgb Hct MCV MCH MCHC RDW Plt Count Lymph % (Auto) [place] % (Auto) Lymph # [place] # Seg Neutrophils % Seg Neuts % (Manual) Lymphocytes % (Manual) Monocytes % (Manual) Seg Neutrophils # Seg Neutrophils # Man Lymphocytes # (Manual) Monocytes # (Manual) Fibrinogen dRVVT Confirm Interp Factor V Activity POC ABG pH POC ABG pCO2 POC ABG pO2 Sodium Potassium Chloride Carbon Dioxide BUN Creatinine Glucose POC Glucose 160 H 245 H 121 H Calcium Phosphorus Magnesium C-Reactive Protein Total Protein Albumin Triglycerides HDL Cholesterol Urine WBC (Auto) Urine Creatinine Urine Total Protein Vancomycin Trough Rheumatoid Factor Complement C4 Crossmatch 09/20/16 09/20/16 09/20/16 04:10 04:10 04:10 WBC 17.0 H RBC 3.21 L Hgb 8.2 L Hct 25.5 L MCV MCH 26 L MCHC RDW 20.9 H Plt Count Lymph % (Auto) [place] % (Auto) Lymph # [place] # Seg Neutrophils % Seg Neuts % (Manual) Lymphocytes % (Manual) Monocytes % (Manual) Seg Neutrophils # Seg Neutrophils # Man Lymphocytes # (Manual) Monocytes # (Manual) Fibrinogen dRVVT Confirm Interp Factor V Activity POC ABG pH POC ABG pCO2 POC ABG pO2 Sodium Potassium Chloride 111.0 H Carbon Dioxide 16 L BUN 129 H Creatinine 3.7 H Glucose 115 H POC Glucose Calcium 8.2 L Phosphorus Magnesium C-Reactive Protein Total Protein Albumin Triglycerides 243 H HDL Cholesterol Urine WBC (Auto) Urine Creatinine Urine Total Protein Vancomycin Trough Rheumatoid Factor Complement C4 Crossmatch 09/20/16 09/20/16 09/20/16 05:40 11:52 16:50 WBC RBC Hgb Hct MCV MCH MCHC RDW Plt Count Lymph % (Auto) [place] % (Auto) Lymph # [place] # Seg Neutrophils % Seg Neuts % (Manual) Lymphocytes % (Manual) Monocytes % (Manual) Seg Neutrophils # Seg Neutrophils # Man Lymphocytes # (Manual) Monocytes # (Manual) Fibrinogen dRVVT Confirm Interp Factor V Activity POC ABG pH POC ABG pCO2 POC ABG pO2 Sodium Potassium Chloride Carbon Dioxide BUN Creatinine Glucose POC Glucose 131 H 183 H 236 H Calcium Phosphorus Magnesium C-Reactive Protein Total Protein Albumin Triglycerides HDL Cholesterol Urine WBC (Auto) Urine Creatinine Urine Total Protein Vancomycin Trough Rheumatoid Factor Complement C4 Crossmatch 09/20/16 09/21/16 09/21/16 23:51 03:30 04:44 WBC RBC Hgb Hct MCV MCH MCHC RDW Plt Count Lymph % (Auto) [place] % (Auto) Lymph # [place] # Seg Neutrophils % Seg Neuts % (Manual) Lymphocytes % (Manual) Monocytes % (Manual) Seg Neutrophils # Seg Neutrophils # Man Lymphocytes # (Manual) Monocytes # (Manual) Fibrinogen dRVVT Confirm Interp Factor V Activity POC ABG pH POC ABG pCO2 POC ABG pO2 Sodium Potassium Chloride Carbon Dioxide BUN Creatinine Glucose POC Glucose 114 H 141 H Calcium Phosphorus Magnesium 2.70 H C-Reactive Protein Total Protein Albumin Triglycerides HDL Cholesterol Urine WBC (Auto) Urine Creatinine Urine Total Protein Vancomycin Trough Rheumatoid Factor Complement C4 Crossmatch 09/21/16 09/21/16 09/21/16 07:45 07:45 10:01 WBC 13.8 H RBC 2.94 L Hgb 7.5 L Hct 23.5 L MCV MCH 26 L MCHC RDW 21.2 H Plt Count Lymph % (Auto) 6.9 L [place] % (Auto) 9.4 H Lymph # 0.9 L [place] # 1.3 H Seg Neutrophils % 83.2 H Seg Neuts % (Manual) Lymphocytes % (Manual) Monocytes % (Manual) Seg Neutrophils # 11.5 H Seg Neutrophils # Man Lymphocytes # (Manual) Monocytes # (Manual) Fibrinogen dRVVT Confirm Interp Factor V Activity POC ABG pH 7.308 L POC ABG pCO2 31.9 L POC ABG pO2 148 H Sodium 147 H Potassium Chloride 114.2 H Carbon Dioxide 15 L BUN 120 H Creatinine 3.9 H Glucose 156 H POC Glucose Calcium 8.2 L Phosphorus Magnesium C-Reactive Protein Total Protein Albumin Triglycerides HDL Cholesterol Urine WBC (Auto) Urine Creatinine Urine Total Protein Vancomycin Trough Rheumatoid Factor Complement C4 Crossmatch 09/21/16 09/21/16 09/21/16 12:00 12:03 13:00 WBC RBC Hgb Hct MCV MCH MCHC RDW Plt Count Lymph % (Auto) [place] % (Auto) Lymph # [place] # Seg Neutrophils % Seg Neuts % (Manual) Lymphocytes % (Manual) Monocytes % (Manual) Seg Neutrophils # Seg Neutrophils # Man Lymphocytes # (Manual) Monocytes # (Manual) Fibrinogen dRVVT Confirm Interp Factor V Activity POC ABG pH POC ABG pCO2 POC ABG pO2 Sodium Potassium Chloride Carbon Dioxide BUN Creatinine Glucose POC Glucose 163 H Calcium Phosphorus Magnesium C-Reactive Protein Total Protein Albumin Triglycerides HDL Cholesterol Urine WBC (Auto) Urine Creatinine 54.8 H Urine Total Protein Vancomycin Trough 2.3 L Rheumatoid Factor Complement C4 Crossmatch 09/21/16 09/21/16 09/22/16 16:51 23:17 06:27 WBC RBC Hgb Hct MCV MCH MCHC RDW Plt Count Lymph % (Auto) [place] % (Auto) Lymph # [place] # Seg Neutrophils % Seg Neuts % (Manual) Lymphocytes % (Manual) Monocytes % (Manual) Seg Neutrophils # Seg Neutrophils # Man Lymphocytes # (Manual) Monocytes # (Manual) Fibrinogen dRVVT Confirm Interp Factor V Activity POC ABG pH POC ABG pCO2 POC ABG pO2 Sodium Potassium Chloride Carbon Dioxide BUN Creatinine Glucose POC Glucose 206 H 114 H 115 H Calcium Phosphorus Magnesium C-Reactive Protein Total Protein Albumin Triglycerides HDL Cholesterol Urine WBC (Auto) Urine Creatinine Urine Total Protein Vancomycin Trough Rheumatoid Factor Complement C4 Crossmatch 09/22/16 09/22/16 09/22/16 07:50 07:50 12:00 WBC 17.8 H RBC 3.04 L Hgb 8.0 L Hct 24.7 L MCV MCH 26 L MCHC RDW 21.6 H Plt Count Lymph % (Auto) [place] % (Auto) Lymph # [place] # Seg Neutrophils % Seg Neuts % (Manual) Lymphocytes % (Manual) Monocytes % (Manual) Seg Neutrophils # Seg Neutrophils # Man Lymphocytes # (Manual) Monocytes # (Manual) Fibrinogen dRVVT Confirm Interp Factor V Activity POC ABG pH POC ABG pCO2 POC ABG pO2 Sodium 150 H Potassium Chloride 118.2 H Carbon Dioxide 14 L BUN 111 H Creatinine 3.7 H Glucose 157 H POC Glucose 183 H Calcium Phosphorus Magnesium C-Reactive Protein Total Protein Albumin Triglycerides HDL Cholesterol Urine WBC (Auto) Urine Creatinine Urine Total Protein Vancomycin Trough Rheumatoid Factor Complement C4 Crossmatch Chest x-ray: pending Allied health notes reviewed: RT
[2016-09-22] MEDS: CARDIZEM/D5W 100MG/100ML 100 MG/100 ML BAG IV SCH ×2 (14:16→22:09)
[2016-09-22] MEDS: ASPIRIN PO SCH (14:16)
[2016-09-22] MEDS: PLAVIX FEEDTUBE SCH (14:16)
[2016-09-22] MEDS: REGLAN IV SCH ×2 (14:34→22:11)
[2016-09-22] MEDS: D5W 1,000 ML with SODIUM BICARBONATE 50 MEQ IV SCH (15:30)
[2016-09-22] MEDS: LOPRESSOR IV PRN (23:39)
[2016-09-23] MEDS: CARDIZEM/D5W 100MG/100ML 100 MG/100 ML BAG IV SCH (03:15)
[2016-09-23 06:00] LABS: Hematocrit 25.2 % (30.3-42.9); Mean Corpuscular HGB Conc 32 % (30-34); Mean Corpuscular Volume 81 fl (79-97); Platelet Count 297 K/mm3 (140-440); Red Blood Count 3.13 M/mm3 (3.65-5.03)
[2016-09-23 06:06] LABS: Mean Corpuscular Hemoglobin 26 pg (28-32); Red Cell Distribution Width 22.1 % (13.2-15.2)
[2016-09-23] MEDS: FLAGYL 500 MG/100 ML 500 MG/100 ML BAG IV SCH ×3 (06:06→23:16)
[2016-09-23] MEDS: HumuLIN R SUB-Q SCH ×4 (06:06→18:07)
[2016-09-23] MEDS: VANCOMYCIN PO FEEDTUBE SCH ×3 (06:07→17:23)
[2016-09-23] MEDS: HEPARIN SUB-Q SCH ×3 (06:07→22:57)
[2016-09-23 06:25] LABS: BUN/Creatinine Ratio 29.21; Calcium 7.3 mg/dL (8.4-10.2)
[2016-09-23] MEDS: D5W 1,000 ML with SODIUM BICARBONATE 50 MEQ IV SCH (06:27)
--- NOTE | 2016-09-23 07:54 | Progress Note ---
Assessment and Plan Assessment: Acute hypoxic respiratory failure on mechanical ventilation s/p trach and PEG Acute left MCA CVA echocardiogram demonstrates at least moderate LVH but a normal LV systolic function, EF 50-55%. no thrombus visualized on transthoracic echocardiogram. Hypertension Now patient is hypotensive Acute on chronic renal failure AG metabolic acidosis on bicarbonate drip Leukocytosis ? etiology, leukemoid vs steroid induced vs sepsis Diabetes mellitus Anemia requiring transfusion of PRBCs Paroxysmal Afib Tele is showing intermittent episodes of afib superimposed on sinus tachycardia Recommendations: Hold all blood pressure meds (Discussed with nurse Courtney to discontinue clonidine patch) IV neosynephrine to keep MAP > 70 Start IV amiodarone drip at 0.5 mg/min We need neurology input in terms of when to safely start full anticoagulation Prognosis is guarded Subjective Date of service: 09/23/16 Principal diagnosis: Acute resp failure on MVS; S/P Acute CVA; Acute Encephalopathy Interval history: I was called this morning to evaluate patient due to tachycardia and hypotension Patient is intubated on assist control, tachypneic with a heart rate of 115 and a MAP of 65 Objective Vital Signs Temp Pulse Resp BP Pulse Ox Pulse Ox 09/23/16 07:00 117 H 32 H 96/54 100 09/23/16 06:30 113 H 40 H 95/60 100 09/23/16 06:00 113 H 33 H 110/44 100 09/23/16 05:30 110 H 35 H 100/51 96 09/23/16 05:00 108 H 34 H 100/56 100 09/23/16 04:30 114 H 37 H 115/53 100 09/23/16 04:00 99.0 F 115 H 37 H 113/53 91 09/23/16 03:30 116 H 36 H 120/60 94 09/23/16 03:12 108 H 118/70 100 09/23/16 03:00 103 H 21 118/70 100 09/23/16 02:30 98 H 25 H 115/65 99 09/23/16 02:00 106 H 20 161/74 100 09/23/16 01:30 102 H 27 H 165/72 100 09/23/16 01:01 121 H 20 152/68 100 09/23/16 01:00 100 09/23/16 00:30 108 H 22 125/68 100 09/23/16 00:00 121 H 25 H 117/75 99 09/22/16 23:53 112 H 133/73 100 09/22/16 23:39 99.9 F H 133 H 129/66 09/22/16 23:30 112 H 17 133/73 100 09/22/16 23:01 123 H 21 129/66 100 09/22/16 22:30 122 H 20 121/57 100 09/22/16 22:09 125 H 137/74 09/22/16 22:00 125 H 25 H 141/73 09/22/16 21:31 124 H 18 137/74 100 09/22/16 21:00 124 H 27 H 134/68 100 09/22/16 20:30 125 H 18 129/81 100 09/22/16 20:01 120 H 22 120/72 100 09/22/16 20:00 99.5 F 100 09/22/16 19:53 125 H 125/74 09/22/16 19:30 124 H 25 H 125/74 09/22/16 19:00 122 H 22 121/68 09/22/16 18:43 127 H 22 135/75 09/22/16 18:30 126 H 15 135/75 09/22/16 18:01 127 H 23 120/75 100 09/22/16 17:30 128 H 20 102/69 100 09/22/16 17:00 125 H 20 107/62 09/22/16 16:30 126 H 22 110/48 09/22/16 16:02 144 H 113/61 100 09/22/16 16:00 98 F 136 H 24 116/65 09/22/16 15:30 134 H 19 109/57 100 09/22/16 15:00 145 H 16 100/58 09/22/16 14:31 184 H 20 113/61 100 09/22/16 14:16 129 H 113/61 09/22/16 14:00 130 H 20 113/61 100 09/22/16 13:30 136 H 25 H 110/60 100 09/22/16 13:00 131 H 33 H 116/65 100 09/22/16 12:30 125 H 34 H 110/58 100 09/22/16 12:00 100.2 F H 129 H 27 H 107/56 100 09/22/16 11:30 127 H 27 H 96/48 100 09/22/16 11:00 118 H 32 H 82/41 100 09/22/16 10:30 130 H 24 123/64 100 09/22/16 10:00 130 H 33 H 151/82 100 09/22/16 09:30 125 H 31 H 148/82 100 09/22/16 09:00 121 H 16 141/79 09/22/16 08:30 124 H 16 146/87 09/22/16 08:16 09/22/16 08:15 122 H 147/81 100 09/22/16 08:00 122 H 15 147/81 09/22/16 07:59 97.9 F - Physical Examination General: Other (intubated via trach) Neck: Positive: neck supple Cardiac: Positive: irregularly irregular Lungs: Positive: Ventilated Respirations Abdomen: Positive: Soft Extremities: Present: normal - Labs and Meds CBC 09/22/16 09/23/16 Range/Units 07:50 05:00 WBC 17.8 H 19.2 H (4.5-11.0) K/mm3 RBC 3.04 L 3.13 L (3.65-5.03) M/mm3 Hgb 8.0 L 8.0 L (10.1-14.3) gm/dl Hct 24.7 L 25.2 L (30.3-42.9) % Plt Count 285 297 (140-440) K/mm3 Comprehensive Metabolic Panel 09/22/16 09/23/16 Range/Units 07:50 05:00 Sodium 150 H 147 H (137-145) mmol/L Potassium 3.8 3.2 L (3.6-5.0) mmol/L Chloride 118.2 H 115.7 H (98-107) mmol/L Carbon Dioxide 14 L 13 L (22-30) mmol/L BUN 111 H 111 H (7-17) mg/dL Creatinine 3.7 H 3.8 H (0.7-1.2) mg/dL Glucose 157 H 194 H (65-100) mg/dL Calcium 8.6 7.3 L D (8.4-10.2) mg/dL - Imaging and Cardiology EKG: image reviewed - Allied health notes Allied health notes reviewed: RT
[2016-09-23] MEDS ORDERED: CORDARONE 900 MG in D5W 482 ML IV SCH (08:00)
[2016-09-23] MEDS ORDERED: POTASSIUM CHLORIDE FEEDTUBE ONE (08:00)
[2016-09-23] MEDS: SODIUM BICARBONATE PO SCH ×2 (08:32→15:44)
[2016-09-23 08:47] LABS: Band Neutrophils # (Manual) 0.2 K/mm3; Basophils % (Manual) 0 % (0.0-1.8); Eosinophils % (Manual) 0 % (0.0-4.3); Total Cells Counted 100
[2016-09-23 08:48] LABS: Crenated RBC Rare
[2016-09-23 08:49] LABS: Bite Cells Rare; Ovalocytes Rare
--- NOTE | 2016-09-23 08:51 | Progress Note ---
Assessment and Plan Assessment and plan: --Hypokalemia; replace per protocol monitor levels --Hypotension/probably septic shock versus hypovolemic Started on pressors, treated systolic blood pressures to more than 100 --Acute hypoxic respiratory failure vent dependent/unable to wean s/p trach and PEG, continue PEG feeds --Paroxysmal A. fib, with intermittent RVR cardiology started amiodarone drip Titrate heart rates to less than 100 --Acute large left MCA CVA status post TPA/encephalopathy Aspirin/statin/supportive care --Aspiration pneumonia Continue vancomycin and Flagyl, ID following --Acute exacerbation of COPD; Nebulizers tapering dose of steroids antibiotics and ventilatory support, pulmonary following --Acute on chronic kidney disease stage III ,Management per nephrology --2 diabetes mellitus; Accu-Chek sliding scale coverage and ADA diet and insulin as needed --Moderate to severe protein calorie malnutrition with albumin of 2.2 Nutritional supplements, tube feeding, supportive care --DVT prophylaxis with heparin --Full CODE STATUS Discharge planning ; pending LTAC placement Critical Care time 31minutes The high probability of a clinically significant, sudden or life threatening deterioration of the [cardiovascular, pulmonary, infectious, renal and neurological] system(s) required my full and direct attention, intervention and personal management. The aggregate critical care time was [31] minutes. This time is in addition to time spent performing reported procedures but includes the following: [] Data Review and interpretation [] Patient assessment and monitoring of vital signs [] Documentation [] Medication orders and management History Interval history: Patient seen and evaluated this morning in ICU medical records reviewed Patient has A. fib with rapid ventricular rate, cardiology started amiodarone drip Status post trach and PEG, vent dependent Noncommunicative Hospitalist Physical - Constitutional Vitals: Temp Pulse Resp BP Pulse Ox 99.1 F 117 H 32 H 96/54 100 09/23/16 07:51 09/23/16 07:00 09/23/16 07:00 09/23/16 07:00 09/23/16 07:00 General appearance: Present: no acute distress, well-nourished, obese - EENT Eyes: Present: PERRL, EOM intact - Neck Neck: Present: supple, normal ROM - Respiratory Respiratory effort: normal Respiratory: bilateral: diminished, rales, rhonchi, negative: wheezing, other - Cardiovascular Rhythm: regular Heart Sounds: Present: S1 & S2 - Extremities Extremities: no ischemia Extremity abnormal: edema - Abdominal General gastrointestinal: soft, non-tender, non-distended, normal bowel sounds, other (PEG in place) - Integumentary Integumentary: Present: clear, warm - Psychiatric Psychiatric: other (noncommunicative) - Neurologic Neurologic: other (noncommunicative) Results - Labs CBC & Chem 7: 09/23/16 05:00 09/23/16 05:00 Labs: Laboratory Last Values WBC 19.2 K/mm3 (4.5-11.0) H 09/23/16 05:00 RBC 3.13 M/mm3 (3.65-5.03) L 09/23/16 05:00 Hgb 8.0 gm/dl (10.1-14.3) L 09/23/16 05:00 Hct 25.2 % (30.3-42.9) L 09/23/16 05:00 MCV 81 fl (79-97) 09/23/16 05:00 MCH 26 pg (28-32) L 09/23/16 05:00 MCHC 32 % (30-34) 09/23/16 05:00 RDW 22.1 % (13.2-15.2) H 09/23/16 05:00 Plt Count 297 K/mm3 (140-440) 09/23/16 05:00 Lymph % (Auto) 6.9 % (13.4-35.0) L 09/21/16 07:45 [place] % (Auto) 9.4 % (0.0-7.3) H 09/21/16 07:45 Eos % (Auto) 0.3 % (0.0-4.3) 09/21/16 07:45 Baso % (Auto) 0.2 % (0.0-1.8) 09/21/16 07:45 Lymph # 0.9 K/mm3 (1.2-5.4) L 09/21/16 07:45 [place] # 1.3 K/mm3 (0.0-0.8) H 09/21/16 07:45 Eos # 0.0 K/mm3 (0.0-0.4) 09/21/16 07:45 Baso # 0.0 K/mm3 (0.0-0.1) 09/21/16 07:45 Add Manual Diff Complete 09/23/16 05:00 Total Counted 100 09/23/16 05:00 Seg Neutrophils % Manufacturing Controls Engineer 09/23/16 05:00 Seg Neuts % (Manual) 92.0 % (40.0-70.0) H 09/23/16 05:00 Band Neutrophils % 1.0 % 09/23/16 05:00 Lymphocytes % (Manual) 3.0 % (13.4-35.0) L 09/23/16 05:00 Reactive Lymphs % (Man) 0 % 09/23/16 05:00 Monocytes % (Manual) 4.0 % (0.0-7.3) 09/23/16 05:00 Eosinophils % (Manual) 0 % (0.0-4.3) 09/23/16 05:00 Basophils % (Manual) 0 % (0.0-1.8) 09/23/16 05:00 Metamyelocytes % 0 % 09/23/16 05:00 Myelocytes % 0 % 09/23/16 05:00 Promyelocytes % 0 % 09/23/16 05:00 Blast Cells % 0 % 09/23/16 05:00 Nucleated RBC % Not Reportable 09/23/16 05:00 Seg Neutrophils # 11.5 K/mm3 (1.8-7.7) H 09/21/16 07:45 Seg Neutrophils # Man 17.7 K/mm3 (1.8-7.7) H 09/23/16 05:00 Band Neutrophils # 0.2 K/mm3 09/23/16 05:00 Lymphocytes # (Manual) 0.6 K/mm3 (1.2-5.4) L 09/23/16 05:00 Abs React Lymphs (Man) 0.0 K/mm3 09/23/16 05:00 Monocytes # (Manual) 0.8 K/mm3 (0.0-0.8) 09/23/16 05:00 Eosinophils # (Manual) 0.0 K/mm3 (0.0-0.4) 09/23/16 05:00 Basophils # (Manual) 0.0 K/mm3 (0.0-0.1) 09/23/16 05:00 Metamyelocytes # 0.0 K/mm3 09/23/16 05:00 Myelocytes # 0.0 K/mm3 09/23/16 05:00 Promyelocytes # 0.0 K/mm3 09/23/16 05:00 Blast Cells # 0.0 K/mm3 09/23/16 05:00 Pathologist Review 09/13/16 04:00 WBC Morphology Not Reportable 09/23/16 05:00 Hypersegmented Neuts Not Reportable 09/23/16 05:00 Hyposegmented Neuts Not Reportable 09/23/16 05:00 Hypogranular Neuts Not Reportable 09/23/16 05:00 Smudge Cells Not Reportable 09/23/16 05:00 Toxic Granulation Not Reportable 09/23/16 05:00 Toxic Vacuolation Not Reportable 09/23/16 05:00 Dohle Bodies Not Reportable 09/23/16 05:00 Pelger-Huet Anomaly Not Reportable 09/23/16 05:00 Jasmina Rods Not Reportable 09/23/16 05:00 Platelet Estimate Appears normal 09/23/16 05:00 Clumped Platelets Not Reportable 09/23/16 05:00 Plt Clumps, EDTA Not Reportable 09/23/16 05:00 Large Platelets Not Reportable 09/23/16 05:00 Giant Platelets Not Reportable 09/23/16 05:00 Platelet Satelliting Not Reportable 09/23/16 05:00 Plt Morphology Comment Not Reportable 09/23/16 05:00 RBC Morphology Not Reportable 09/23/16 05:00 Dimorphic RBCs Not Reportable 09/23/16 05:00 Polychromasia Not Reportable 09/23/16 05:00 Hypochromasia Not Reportable 09/23/16 05:00 Poikilocytosis Not Reportable 09/23/16 05:00 Anisocytosis Not Reportable 09/23/16 05:00 Microcytosis Not Reportable 09/23/16 05:00 Macrocytosis Not Reportable 09/23/16 05:00 Spherocytes Not Reportable 09/23/16 05:00 Pappenheimer Bodies Not Reportable 09/23/16 05:00 Sickle Cells Not Reportable 09/23/16 05:00 Target Cells Not Reportable 09/23/16 05:00 Tear Drop Cells Not Reportable 09/23/16 05:00 Ovalocytes Rare 09/23/16 05:00 Helmet Cells Not Reportable 09/23/16 05:00 Monet-Bad Axe Bodies Not Reportable 09/23/16 05:00 [place] Rings Not Reportable 09/23/16 05:00 Chuck Cells Not Reportable 09/23/16 05:00 Bite Cells Rare 09/23/16 05:00 Crenated Cell Rare 09/23/16 05:00 Elliptocytes Not Reportable 09/23/16 05:00 Acanthocytes (Spur) Not Reportable 09/23/16 05:00 Rouleaux Not Reportable 09/23/16 05:00 Hemoglobin C Crystals Not Reportable 09/23/16 05:00 Schistocytes Not Reportable 09/23/16 05:00 Malaria parasites Not Reportable 09/23/16 05:00 ESR > 140.0 mm/Hr (0-20) 09/08/16 11:48 Jun Bodies Not Reportable 09/23/16 05:00 Hem Pathologist Commnt No 09/23/16 05:00 PT 13.8 Sec. (12.2-14.9) 09/15/16 05:00 INR 1.01 (0.87-1.13) 09/15/16 05:00 APTT 24.4 Sec. (24.2-36.6) 09/15/16 05:00 Thrombin Time 16.8 Sec. (15.1-19.6) 09/03/16 00:10 Fibrinogen 750 mg/dl (211-480) H 09/08/16 11:48 Lupus Anticoagulant see below 09/12/16 09:59 LA PTT Baseline See scanned report 09/12/16 09:59 dRVVT Confirm Interp Positive (Negative) H 09/12/16 09:59 dRVVT Screen 50:50 See scanned report 09/12/16 09:59 dRVVT Mix Interpret See scanned report 09/12/16 09:59 Protein C Antigen 122 % (70-140) 09/08/16 15:35 Free Protein S 97 % normal (50-147) 09/08/16 15:35 Total Protein S 109 % (70-140) 09/08/16 15:35 Antithrombin III Ag 100 % (80-120) 09/08/16 15:35 Factor V Activity 182 % (65-150) H 09/08/16 15:35 POC ABG pH 7.308 (7.35-7.45) L 09/21/16 10:01 POC ABG pCO2 31.9 (35-45) L 09/21/16 10:01 POC ABG pO2 148 (80-105) H 09/21/16 10:01 POC ABG HCO3 16.0 09/21/16 10:01 POC ABG Total CO2 17 09/21/16 10:01 POC ABG O2 Sat 99 09/21/16 10:01 POC ABG Base Excess -10 09/21/16 10:01 FiO2 30 % 09/21/16 10:01 Sodium 147 mmol/L (137-145) H 09/23/16 05:00 Potassium 3.2 mmol/L (3.6-5.0) L 09/23/16 05:00 Chloride 115.7 mmol/L (98-107) H 09/23/16 05:00 Carbon Dioxide 13 mmol/L (22-30) L 09/23/16 05:00 Anion Gap 22 mmol/L 09/23/16 05:00 BUN 111 mg/dL (7-17) H 09/23/16 05:00 Creatinine 3.8 mg/dL (0.7-1.2) H 09/23/16 05:00 Estimated GFR 16 ml/min 09/23/16 05:00 BUN/Creatinine Ratio 29.21 % 09/23/16 05:00 Glucose 194 mg/dL (65-100) H 09/23/16 05:00 POC Glucose 188 (70-105) H 09/23/16 05:10 Osmolality 351 Mosm/kg 09/16/16 11:47 Lactic Acid 1.40 mmol/L (0.7-2.0) 09/23/16 05:00 Calcium 7.3 mg/dL (8.4-10.2) L D 09/23/16 05:00 Phosphorus 4.30 mg/dL (2.5-4.5) D 09/08/16 06:18 Magnesium 2.70 mg/dL (1.7-2.3) H 09/21/16 03:30 Total Bilirubin 0.30 mg/dL (0.1-1.2) 09/13/16 04:00 AST 20 units/L (5-40) 09/13/16 04:00 ALT 18 units/L (7-56) 09/13/16 04:00 Alkaline Phosphatase 72 units/L (35-129) 09/13/16 04:00 Ammonia 27.0 umol/L (25-60) 09/07/16 08:37 Total Creatine Kinase 67 units/L (30-135) 09/03/16 11:26 CK-MB (CK-2) 1.4 ng/mL (0.0-4.0) 09/03/16 11:26 CK-MB (CK-2) Rel Index 2.0 (0-4) 09/03/16 11:26 Troponin T < 0.010 ng/mL (0.00-0.029) 09/06/16 10:43 C-Reactive Protein 3.20 mg/dL (0.00-1.30) H 09/23/16 05:00 Total Protein 6.2 g/dL (6.3-8.2) L 09/13/16 04:00 Albumin 2.9 g/dL (3.9-5) L 09/13/16 04:00 Albumin/Globulin Ratio 0.9 % 09/13/16 04:00 Triglycerides 243 mg/dL (2-149) H 09/20/16 04:10 Cholesterol 189 mg/dL (50-199) 09/04/16 03:31 LDL Cholesterol Direct 126 mg/dL (50-130) 09/04/16 03:31 HDL Cholesterol 31 mg/dL (40-59) L 09/04/16 03:31 Cholesterol/HDL Ratio 6.09 % 09/04/16 03:31 Angiotensin Convert Enz See scanned report 09/08/16 11:48 TSH 1.010 mlU/mL (0.270-4.200) 09/07/16 08:37 HCG, Qual Negative (Negative) 09/03/16 00:10 Urine Color Yellow (Yellow) 09/09/16 14:13 Urine Turbidity Slightly-cloudy (Clear) 09/09/16 14:13 Urine pH 5.0 (5.0-7.0) 09/09/16 14:13 Ur Specific [place] 1.012 (1.003-1.030) 09/09/16 14:13 Urine Protein 30 mg/dl mg/dL (Negative) 09/09/16 14:13 Urine Glucose (UA) Neg mg/dL (Negative) 09/09/16 14:13 Urine Ketones Neg mg/dL (Negative) 09/09/16 14:13 Urine Blood Lg (Negative) 09/09/16 14:13 Urine Nitrite Neg (Negative) 09/09/16 14:13 Urine Bilirubin Neg (Negative) 09/09/16 14:13 Urine Urobilinogen < 2.0 mg/dL (<2.0) 09/09/16 14:13 Ur Leukocyte Esterase Sm (Negative) 09/09/16 14:13 Urine WBC (Auto) 25.0 /HPF (0.0-6.0) H 09/09/16 14:13 Urine RBC (Auto) > 182.0 /HPF (0.0-6.0) 09/09/16 14:13 Urine Bacteria (Auto) 1+ /HPF (Negative) 09/09/16 14:13 Urine WBC Clumps 2+ /HPF 09/07/16 02:47 Hyaline Casts 4 /LPF 09/07/16 02:47 Urine Mucus Few /HPF 09/09/16 14:13 Urine Eosinophils None seen (None Seen) 09/07/16 16:00 Urine Total Volume 1350 09/21/16 12:00 Urine Creatinine 54.8 mg/dL (0.1-20.0) H 09/21/16 12:00 Height (in) 67.0 inches 09/21/16 12:00 Weight (lb) 92.0 lbs 09/21/16 12:00 Creatinine Clearance 15 09/21/16 12:00 Urine Sodium 36 mEq/L 09/16/16 19:19 Urine Total Protein 16 mg/dL (5-11.8) H 09/16/16 19:19 Vancomycin Trough 2.3 ug/mL (5.0-20.0) L 09/21/16 13:00 Random Vancomycin 2.3 ug/mL (0-40.0) 09/09/16 03:00 Urine Opiates Screen Presumptive negative 09/03/16 15:11 Urine Methadone Screen Presumptive positive 09/03/16 15:11 Ur Barbiturates Screen Presumptive positive 09/03/16 15:11 Ur Phencyclidine Scrn Presumptive negative 09/03/16 15:11 Ur Amphetamines Screen Presumptive negative 09/03/16 15:11 U Benzodiazepines Scrn Presumptive negative 09/03/16 15:11 Urine Cocaine Screen Presumptive negative 09/03/16 15:11 U Marijuana (THC) Screen Presumptive positive 09/03/16 15:11 Drugs of Abuse Note Disclamer 09/03/16 15:11 Rheumatoid Factor 24 IU/ml (0-13) H 09/08/16 11:48 SAHIL Screen Negative (Negative) 09/07/16 09:20 Proteinase 3 (PR3) Ab <1.0 AI (<1.0) 09/07/16 09:20 Myeloperoxidase Ab <1.0 AI (<1.0) 09/07/16 09:20 Sjogren's Antibody <1.0 AI (<1.0) 09/08/16 15:35 Scl-70 Scleroderma Ab <1.0 AI (<1.0) 09/08/16 15:35 Centromere B Antibody <1.0 AI (<1.0) 09/08/16 12:02 Cardiolipid IgG Ab <14 GPL (<=14) 09/12/16 09:59 Cardiolipid IgA Ab <11 APL (<=11) 09/12/16 09:59 Cardiolipid IgM Ab <12 MPL (<=12) 09/12/16 09:59 Complement C3 148 mg/dL (90-180) 09/07/16 09:20 Complement C4 58 mg/dL (16-47) H 09/07/16 09:20 RPR Nonreactive (Nonreactive) 09/08/16 11:48 Hep Bs Antigen Non-reactive (Negative) 09/07/16 09:20 Hepatitis C Antibody Non-reactive (NonReactive) 09/07/16 09:20 HIV 1&2 Antibody Rapid Non react (Non React) 09/08/16 11:48 HIV P24 Antigen Non react (Non React) 09/08/16 11:48 Blood Type A POSITIVE 09/16/16 13:55 Antibody Screen TNR 09/16/16 13:55 DELORIS Antibody Screen Negative 09/16/16 13:55 Crossmatch See Detail 09/16/16 13:55
[2016-09-23] MEDS: ASPIRIN PO SCH (09:19)
[2016-09-23] MEDS: REGLAN IV SCH ×2 (09:19→22:56)
[2016-09-23] MEDS: PLAVIX FEEDTUBE SCH (09:19)
[2016-09-23] MEDS: PROTONIX PO SCH ×2 (09:19→22:58)
[2016-09-23] MEDS: LEVEMIR (NF) SUB-Q SCH (09:19)
[2016-09-23] MEDS: NEO-SYNEPHRINE 100 MG in NACL 0.9% 90 ML IV SCH ×2 (10:08→20:53)
[2016-09-23] MEDS: MORPHINE IV PRN ×2 (11:19→17:55)
--- NOTE | 2016-09-23 12:08 | Progress Note ---
Assessment and Plan - Patient Problems (1) Acute respiratory failure with hypoxia Current Visit: Yes Status: Acute Plan to address problem: - continue aspiration precautions / address VAP bundles - continue to wean oxygen for MAP > 94% - continue bronchodilators and pulmonary toilet - will continue to taper systemic steroids (no active needs pulmonary-[place]) - completed empiric levaquin dosing - s/p tracheostomy - placed back on AC mode after review of ABG and secondary to increased work of breathing - increased set rate also (2) Acute CVA (cerebrovascular accident) Current Visit: Yes Status: Acute Plan to address problem: - out of tpA window (initially stopped due to uncontrolled HTN) - Left MCA teritory stroke with some midline shift on last CT - seen by neurology and prognosis for recovery of mental status guarded to poor - optimizing secondary prevention modalities now (BP, lipid anti-platelet therapy) - off systemic steroids now (started earlier for edema) - resumed ASA and Plavix (3) Hypertensive emergency Current Visit: Yes Status: Acute Plan to address problem: - resolved - continue clonidine patch at 0.3mg qweek - continue prn IV rescue labetalol - added metoprolol re: tachycardia also - started on minoxidil by nephrology - BP's better controlled overall (4) Obesity (BMI 35.0-39.9 without comorbidity) Current Visit: Yes Status: Chronic Plan to address problem: - adjust tube feeds per sharepoint net developer's recommendations - supportive and preventive skin care re: breakdown - to resume tube feeds today - continue reglan re: high residuals (5) Type 2 diabetes mellitus Current Visit: Yes Status: Chronic Qualifiers: Diabetes mellitus complication status: D Diabetes mellitus complication detail: D Diabetic retinopathy severity: D Proliferative retinopathy type: P Diabetes mellitus macular edema: D Diabetes mellitus senior living insulin use : D Laterality: L Chronic kidney disease stage: C Plan to address problem: - continue SSI - continue lantus at 8 units sq q24h (6) Leukocytosis (leucocytosis) Current Visit: Yes Status: Acute Qualifiers: Leukocytosis type: leukemoid reaction Qualified Code(s): D72.823 - Leukemoid reaction Plan to address problem: - slowly trending back up - suspect azotemia also contributing - Afebrile - complete AB's per ID recs - lactate WNL and CRP not significantly elevated (7) Agitation Current Visit: Yes Status: Acute Plan to address problem: - will place fentanyl patch as she responds to prn morphine with reduced work of breathing also - suspect pain element (8) Atrial fibrillation Current Visit: Yes Status: Acute Qualifiers: Atrial fibrillation type: A Plan to address problem: - cardiology consulted - placed on cardizem drip but stopped secondary to hypotension - will defer to cardiology team (9) Discharge planning issues Current Visit: Yes Status: Acute Plan to address problem: - she remains critically ill on life sustaining interventions including MVS and at risk for further acute deterioration including .....35' CCT Subjective Date of service: 09/23/16 Principal diagnosis: Acute resp failure on MVS; S/P Acute CVA; Acute Encephalopathy Interval history: Seen and examined at bedside; 24 hour events reviewed; nursing and respiratory care staff consulted; no adverse overnight events reported to me; working hard to breath; AMS is persistent; making urine but azotemia is persistent; not tolerating weaning trials well today and placed back on full AC support Objective Vital Signs - 12hr 09/23/16 09/23/16 09/23/16 00:30 01:00 01:01 Temperature Pulse Rate 108 H 121 H Respiratory 22 20 Rate Respiratory Rate [ Generalized] Blood Pressure 125/68 152/68 O2 Sat by Pulse 100 100 Oximetry O2 Sat by Pulse 100 Oximetry [ Assessment] 09/23/16 09/23/16 09/23/16 01:30 02:00 02:30 Temperature Pulse Rate 102 H 106 H 98 H Respiratory 27 H 20 25 H Rate Respiratory Rate [ Generalized] Blood Pressure 165/72 161/74 115/65 O2 Sat by Pulse 100 100 99 Oximetry O2 Sat by Pulse Oximetry [ Assessment] 09/23/16 09/23/16 09/23/16 03:00 03:12 03:30 Temperature Pulse Rate 103 H 108 H 116 H Respiratory 21 36 H Rate Respiratory Rate [ Generalized] Blood Pressure 118/70 118/70 120/60 O2 Sat by Pulse 100 100 94 Oximetry O2 Sat by Pulse Oximetry [ Assessment] 09/23/16 09/23/16 09/23/16 04:00 04:30 05:00 Temperature 99.0 F Pulse Rate 115 H 114 H 108 H Respiratory 37 H 37 H 34 H Rate Respiratory Rate [ Generalized] Blood Pressure 113/53 115/53 100/56 O2 Sat by Pulse 91 100 100 Oximetry O2 Sat by Pulse Oximetry [ Assessment] 09/23/16 09/23/16 09/23/16 05:30 06:00 06:30 Temperature Pulse Rate 110 H 113 H 113 H Respiratory 35 H 33 H 40 H Rate Respiratory Rate [ Generalized] Blood Pressure 100/51 110/44 95/60 O2 Sat by Pulse 96 100 100 Oximetry O2 Sat by Pulse Oximetry [ Assessment] 09/23/16 09/23/16 09/23/16 07:00 07:30 07:51 Temperature 99.1 F Pulse Rate 117 H 118 H Respiratory 32 H 39 H Rate Respiratory Rate [ Generalized] Blood Pressure 96/54 87/47 O2 Sat by Pulse 100 100 Oximetry O2 Sat by Pulse Oximetry [ Assessment] 09/23/16 09/23/16 09/23/16 08:00 08:30 08:32 Temperature Pulse Rate 119 H 122 H 120 H Respiratory 38 H 37 H Rate Respiratory Rate [ Generalized] Blood Pressure 96/52 94/50 94/50 O2 Sat by Pulse 100 100 100 Oximetry O2 Sat by Pulse Oximetry [ Assessment] 09/23/16 09/23/16 09/23/16 09:01 09:03 09:31 Temperature Pulse Rate 124 H 123 H Respiratory 36 H 17 Rate Respiratory Rate [ Generalized] Blood Pressure 87/46 89/44 O2 Sat by Pulse 100 100 Oximetry O2 Sat by Pulse 100 Oximetry [ Assessment] 09/23/16 09/23/16 09/23/16 10:00 10:30 11:00 Temperature Pulse Rate 126 H 128 H 131 H Respiratory 43 H 52 H 36 H Rate Respiratory 45 H Rate [ Generalized] Blood Pressure 88/62 99/49 93/58 O2 Sat by Pulse 100 100 100 Oximetry O2 Sat by Pulse Oximetry [ Assessment] 09/23/16 09/23/16 11:19 11:46 Temperature Pulse Rate 127 H Respiratory 41 H Rate Respiratory Rate [ Generalized] Blood Pressure 89/65 O2 Sat by Pulse 100 Oximetry O2 Sat by Pulse Oximetry [ Assessment] Constitutional: no acute distress, other (encephalopathic) Eyes: non-icteric, other (tracheostomy tube in midline of neck) ENT: oropharynx moist Neck: supple, no lymphadenopathy Effort: normal Ascultation: Bilateral: diminished breath sounds, rhonchi Cardiovascular: regular rate and rhythm Gastrointestinal: normoactive bowel sounds, soft, non-tender, non-distended Integumentary: normal Extremities: no cyanosis, no edema, pulses normal, no ischemia or petechiae Neurologic: pupils equal and round, other (sedated) Psychiatric: other (unable to assess) CBC and BMP: 09/23/16 05:00 09/23/16 05:00 ABG, PT/INR, D-dimer: ABG POC ABG pH 7.308 (7.35-7.45) L 09/21/16 10:01 POC ABG pCO2 31.9 (35-45) L 09/21/16 10:01 POC ABG pO2 148 (80-105) H 09/21/16 10:01 POC ABG HCO3 16.0 09/21/16 10:01 POC ABG Total CO2 17 09/21/16 10:01 POC ABG O2 Sat 99 09/21/16 10:01 PT/INR, D-dimer PT 13.8 Sec. (12.2-14.9) 09/15/16 05:00 INR 1.01 (0.87-1.13) 09/15/16 05:00 Abnormal lab findings: Abnormal Labs 09/03/16 09/03/16 09/03/16 12:12 15:07 16:20 WBC RBC Hgb Hct MCV MCH MCHC RDW Plt Count Lymph % (Auto) [place] % (Auto) Lymph # [place] # Seg Neutrophils % Seg Neuts % (Manual) Lymphocytes % (Manual) Monocytes % (Manual) Seg Neutrophils # Seg Neutrophils # Man Lymphocytes # (Manual) Monocytes # (Manual) Fibrinogen dRVVT Confirm Interp Factor V Activity POC ABG pH 7.452 H POC ABG pCO2 POC ABG pO2 Sodium Potassium Chloride Carbon Dioxide BUN Creatinine Glucose POC Glucose 178 H Calcium Phosphorus 2.20 L Magnesium 1.60 L C-Reactive Protein Total Protein Albumin Triglycerides HDL Cholesterol Urine WBC (Auto) Urine Creatinine Urine Total Protein Vancomycin Trough Rheumatoid Factor Complement C4 Crossmatch 09/03/16 09/03/16 09/03/16 17:57 17:58 23:50 WBC RBC Hgb Hct MCV MCH MCHC RDW Plt Count Lymph % (Auto) [place] % (Auto) Lymph # [place] # Seg Neutrophils % Seg Neuts % (Manual) Lymphocytes % (Manual) Monocytes % (Manual) Seg Neutrophils # Seg Neutrophils # Man Lymphocytes # (Manual) Monocytes # (Manual) Fibrinogen dRVVT Confirm Interp Factor V Activity POC ABG pH POC ABG pCO2 POC ABG pO2 Sodium Potassium Chloride Carbon Dioxide BUN Creatinine Glucose POC Glucose 162 H 145 H Calcium Phosphorus 2.30 L Magnesium C-Reactive Protein Total Protein Albumin Triglycerides HDL Cholesterol Urine WBC (Auto) Urine Creatinine Urine Total Protein Vancomycin Trough Rheumatoid Factor Complement C4 Crossmatch 09/04/16 09/04/16 09/04/16 03:31 03:31 05:42 WBC RBC Hgb 9.7 L D Hct MCV 72 L MCH 23 L MCHC RDW 17.5 H Plt Count Lymph % (Auto) 11.1 L [place] % (Auto) Lymph # [place] # Seg Neutrophils % 84.3 H Seg Neuts % (Manual) Lymphocytes % (Manual) Monocytes % (Manual) Seg Neutrophils # 8.9 H Seg Neutrophils # Man Lymphocytes # (Manual) Monocytes # (Manual) Fibrinogen dRVVT Confirm Interp Factor V Activity POC ABG pH POC ABG pCO2 POC ABG pO2 Sodium 135 L Potassium 2.9 L* Chloride 97.2 L Carbon Dioxide 19 L BUN Creatinine 1.7 H Glucose 170 H POC Glucose 152 H Calcium Phosphorus Magnesium C-Reactive Protein Total Protein Albumin Triglycerides 160 H HDL Cholesterol 31 L Urine WBC (Auto) Urine Creatinine Urine Total Protein Vancomycin Trough Rheumatoid Factor Complement C4 Crossmatch 09/04/16 09/04/16 09/04/16 11:34 17:46 23:29 WBC RBC Hgb Hct MCV MCH MCHC RDW Plt Count Lymph % (Auto) [place] % (Auto) Lymph # [place] # Seg Neutrophils % Seg Neuts % (Manual) Lymphocytes % (Manual) Monocytes % (Manual) Seg Neutrophils # Seg Neutrophils # Man Lymphocytes # (Manual) Monocytes # (Manual) Fibrinogen dRVVT Confirm Interp Factor V Activity POC ABG pH POC ABG pCO2 POC ABG pO2 Sodium Potassium Chloride Carbon Dioxide BUN Creatinine Glucose POC Glucose 165 H 210 H 139 H Calcium Phosphorus Magnesium C-Reactive Protein Total Protein Albumin Triglycerides HDL Cholesterol Urine WBC (Auto) Urine Creatinine Urine Total Protein Vancomycin Trough Rheumatoid Factor Complement C4 Crossmatch 09/05/16 09/05/16 09/05/16 04:05 04:05 05:38 WBC RBC Hgb Hct MCV 76 L D MCH 23 L MCHC RDW 17.8 H Plt Count Lymph % (Auto) [place] % (Auto) Lymph # [place] # Seg Neutrophils % Seg Neuts % (Manual) Lymphocytes % (Manual) Monocytes % (Manual) Seg Neutrophils # Seg Neutrophils # Man Lymphocytes # (Manual) Monocytes # (Manual) Fibrinogen dRVVT Confirm Interp Factor V Activity POC ABG pH POC ABG pCO2 POC ABG pO2 Sodium 134 L Potassium Chloride Carbon Dioxide 18 L BUN Creatinine 1.8 H Glucose 192 H POC Glucose 175 H Calcium Phosphorus Magnesium C-Reactive Protein Total Protein Albumin Triglycerides HDL Cholesterol Urine WBC (Auto) Urine Creatinine Urine Total Protein Vancomycin Trough Rheumatoid Factor Complement C4 Crossmatch 09/05/16 09/05/16 09/05/16 11:38 17:48 23:22 WBC RBC Hgb Hct MCV MCH MCHC RDW Plt Count Lymph % (Auto) [place] % (Auto) Lymph # [place] # Seg Neutrophils % Seg Neuts % (Manual) Lymphocytes % (Manual) Monocytes % (Manual) Seg Neutrophils # Seg Neutrophils # Man Lymphocytes # (Manual) Monocytes # (Manual) Fibrinogen dRVVT Confirm Interp Factor V Activity POC ABG pH POC ABG pCO2 POC ABG pO2 Sodium Potassium Chloride Carbon Dioxide BUN Creatinine Glucose POC Glucose 164 H 186 H 195 H Calcium Phosphorus Magnesium C-Reactive Protein Total Protein Albumin Triglycerides HDL Cholesterol Urine WBC (Auto) Urine Creatinine Urine Total Protein Vancomycin Trough Rheumatoid Factor Complement C4 Crossmatch 09/06/16 09/06/16 09/06/16 04:12 05:59 07:32 WBC RBC Hgb Hct MCV MCH MCHC RDW Plt Count Lymph % (Auto) [place] % (Auto) Lymph # [place] # Seg Neutrophils % Seg Neuts % (Manual) Lymphocytes % (Manual) Monocytes % (Manual) Seg Neutrophils # Seg Neutrophils # Man Lymphocytes # (Manual) Monocytes # (Manual) Fibrinogen dRVVT Confirm Interp Factor V Activity POC ABG pH 7.514 H POC ABG pCO2 29.1 L POC ABG pO2 72 L Sodium 133 L Potassium 3.4 L Chloride 94.9 L Carbon Dioxide 19 L BUN 30 H Creatinine 2.1 H Glucose 139 H POC Glucose 146 H Calcium Phosphorus Magnesium C-Reactive Protein Total Protein Albumin Triglycerides HDL Cholesterol Urine WBC (Auto) Urine Creatinine Urine Total Protein Vancomycin Trough Rheumatoid Factor Complement C4 Crossmatch 09/06/16 09/06/16 09/06/16 11:57 17:58 19:02 WBC RBC Hgb Hct MCV MCH MCHC RDW Plt Count Lymph % (Auto) [place] % (Auto) Lymph # [place] # Seg Neutrophils % Seg Neuts % (Manual) Lymphocytes % (Manual) Monocytes % (Manual) Seg Neutrophils # Seg Neutrophils # Man Lymphocytes # (Manual) Monocytes # (Manual) Fibrinogen dRVVT Confirm Interp Factor V Activity POC ABG pH 7.465 H POC ABG pCO2 32.0 L POC ABG pO2 Sodium Potassium Chloride Carbon Dioxide BUN Creatinine Glucose POC Glucose 165 H 160 H Calcium Phosphorus Magnesium C-Reactive Protein Total Protein Albumin Triglycerides HDL Cholesterol Urine WBC (Auto) Urine Creatinine Urine Total Protein Vancomycin Trough Rheumatoid Factor Complement C4 Crossmatch 09/06/16 09/07/16 09/07/16 23:45 02:47 02:47 WBC RBC Hgb Hct MCV MCH MCHC RDW Plt Count Lymph % (Auto) [place] % (Auto) Lymph # [place] # Seg Neutrophils % Seg Neuts % (Manual) Lymphocytes % (Manual) Monocytes % (Manual) Seg Neutrophils # Seg Neutrophils # Man Lymphocytes # (Manual) Monocytes # (Manual) Fibrinogen dRVVT Confirm Interp Factor V Activity POC ABG pH POC ABG pCO2 POC ABG pO2 Sodium Potassium Chloride Carbon Dioxide BUN Creatinine Glucose POC Glucose 204 H Calcium Phosphorus Magnesium C-Reactive Protein Total Protein Albumin Triglycerides HDL Cholesterol Urine WBC (Auto) 68.0 H Urine Creatinine 106.1 H Urine Total Protein Vancomycin Trough Rheumatoid Factor Complement C4 Crossmatch 09/07/16 09/07/16 09/07/16 04:50 06:19 06:39 WBC RBC Hgb Hct MCV MCH MCHC RDW Plt Count Lymph % (Auto) [place] % (Auto) Lymph # [place] # Seg Neutrophils % Seg Neuts % (Manual) Lymphocytes % (Manual) Monocytes % (Manual) Seg Neutrophils # Seg Neutrophils # Man Lymphocytes # (Manual) Monocytes # (Manual) Fibrinogen dRVVT Confirm Interp Factor V Activity POC ABG pH 7.457 H POC ABG pCO2 32.1 L POC ABG pO2 76 L Sodium 132 L Potassium Chloride 94.7 L Carbon Dioxide BUN 53 H Creatinine 2.9 H Glucose 151 H POC Glucose 149 H Calcium Phosphorus Magnesium C-Reactive Protein Total Protein Albumin Triglycerides HDL Cholesterol Urine WBC (Auto) Urine Creatinine Urine Total Protein Vancomycin Trough Rheumatoid Factor Complement C4 Crossmatch 09/07/16 09/07/16 09/07/16 09:20 11:43 11:43 WBC 19.4 H RBC Hgb 8.3 L Hct 26.4 L D MCV 72 L D MCH 22 L MCHC RDW 17.9 H Plt Count Lymph % (Auto) 8.5 L [place] % (Auto) Lymph # [place] # 1.0 H Seg Neutrophils % 85.8 H Seg Neuts % (Manual) Lymphocytes % (Manual) Monocytes % (Manual) Seg Neutrophils # 16.6 H Seg Neutrophils # Man Lymphocytes # (Manual) Monocytes # (Manual) Fibrinogen dRVVT Confirm Interp Factor V Activity POC ABG pH POC ABG pCO2 POC ABG pO2 Sodium 134 L Potassium Chloride 97.2 L Carbon Dioxide 20 L BUN 58 H Creatinine 2.9 H Glucose 147 H POC Glucose Calcium Phosphorus 2.40 L Magnesium 2.40 H C-Reactive Protein Total Protein 5.8 L Albumin 2.2 L Triglycerides HDL Cholesterol Urine WBC (Auto) Urine Creatinine Urine Total Protein Vancomycin Trough Rheumatoid Factor Complement C4 58 H Crossmatch 09/07/16 09/07/16 09/07/16 11:50 16:00 17:31 WBC RBC Hgb Hct MCV MCH MCHC RDW Plt Count Lymph % (Auto) [place] % (Auto) Lymph # [place] # Seg Neutrophils % Seg Neuts % (Manual) Lymphocytes % (Manual) Monocytes % (Manual) Seg Neutrophils # Seg Neutrophils # Man Lymphocytes # (Manual) Monocytes # (Manual) Fibrinogen dRVVT Confirm Interp Factor V Activity POC ABG pH POC ABG pCO2 POC ABG pO2 158 H Sodium Potassium Chloride Carbon Dioxide BUN Creatinine Glucose POC Glucose 175 H Calcium Phosphorus Magnesium C-Reactive Protein Total Protein Albumin Triglycerides HDL Cholesterol Urine WBC (Auto) Urine Creatinine 66.3 H Urine Total Protein Vancomycin Trough Rheumatoid Factor Complement C4 Crossmatch 09/07/16 09/08/16 09/08/16 23:50 05:46 06:18 WBC 17.8 H RBC 3.58 L Hgb 8.1 L Hct 25.5 L MCV 71 L MCH 23 L MCHC RDW 18.4 H Plt Count Lymph % (Auto) [place] % (Auto) Lymph # [place] # Seg Neutrophils % Seg Neuts % (Manual) 92.0 H Lymphocytes % (Manual) 6.0 L Monocytes % (Manual) Seg Neutrophils # Seg Neutrophils # Man 16.4 H Lymphocytes # (Manual) 1.1 L Monocytes # (Manual) Fibrinogen dRVVT Confirm Interp Factor V Activity POC ABG pH POC ABG pCO2 34.3 L POC ABG pO2 71 L Sodium Potassium Chloride Carbon Dioxide BUN Creatinine Glucose POC Glucose 216 H Calcium Phosphorus Magnesium C-Reactive Protein Total Protein Albumin Triglycerides HDL Cholesterol Urine WBC (Auto) Urine Creatinine Urine Total Protein Vancomycin Trough Rheumatoid Factor Complement C4 Crossmatch 09/08/16 09/08/16 09/08/16 06:18 06:51 10:55 WBC RBC Hgb Hct MCV MCH MCHC RDW Plt Count Lymph % (Auto) [place] % (Auto) Lymph # [place] # Seg Neutrophils % Seg Neuts % (Manual) Lymphocytes % (Manual) Monocytes % (Manual) Seg Neutrophils # Seg Neutrophils # Man Lymphocytes # (Manual) Monocytes # (Manual) Fibrinogen dRVVT Confirm Interp Factor V Activity POC ABG pH POC ABG pCO2 POC ABG pO2 Sodium 133 L Potassium Chloride 96.9 L Carbon Dioxide 20 L BUN 63 H Creatinine 2.7 H Glucose 195 H POC Glucose 204 H 169 H Calcium Phosphorus Magnesium C-Reactive Protein Total Protein Albumin Triglycerides HDL Cholesterol Urine WBC (Auto) Urine Creatinine Urine Total Protein Vancomycin Trough Rheumatoid Factor Complement C4 Crossmatch 09/08/16 09/08/16 09/08/16 11:48 11:48 11:48 WBC RBC Hgb Hct MCV MCH MCHC RDW Plt Count Lymph % (Auto) [place] % (Auto) Lymph # [place] # Seg Neutrophils % Seg Neuts % (Manual) Lymphocytes % (Manual) Monocytes % (Manual) Seg Neutrophils # Seg Neutrophils # Man Lymphocytes # (Manual) Monocytes # (Manual) Fibrinogen 750 H dRVVT Confirm Interp Factor V Activity POC ABG pH POC ABG pCO2 POC ABG pO2 Sodium Potassium Chloride Carbon Dioxide BUN Creatinine Glucose POC Glucose Calcium Phosphorus Magnesium C-Reactive Protein 15.70 H Total Protein Albumin Triglycerides HDL Cholesterol Urine WBC (Auto) Urine Creatinine Urine Total Protein Vancomycin Trough Rheumatoid Factor 24 H Complement C4 Crossmatch 09/08/16 09/08/16 09/09/16 15:35 18:25 00:24 WBC RBC Hgb Hct MCV MCH MCHC RDW Plt Count Lymph % (Auto) [place] % (Auto) Lymph # [place] # Seg Neutrophils % Seg Neuts % (Manual) Lymphocytes % (Manual) Monocytes % (Manual) Seg Neutrophils # Seg Neutrophils # Man Lymphocytes # (Manual) Monocytes # (Manual) Fibrinogen dRVVT Confirm Interp Factor V Activity 182 H POC ABG pH POC ABG pCO2 POC ABG pO2 Sodium Potassium Chloride Carbon Dioxide BUN Creatinine Glucose POC Glucose 184 H 216 H Calcium Phosphorus Magnesium C-Reactive Protein Total Protein Albumin Triglycerides HDL Cholesterol Urine WBC (Auto) Urine Creatinine Urine Total Protein Vancomycin Trough Rheumatoid Factor Complement C4 Crossmatch 09/09/16 09/09/16 09/09/16 03:00 03:00 04:04 WBC 27.9 H RBC Hgb 8.7 L Hct 28.1 L MCV 72 L MCH 22 L MCHC RDW 18.4 H Plt Count 485 H Lymph % (Auto) [place] % (Auto) Lymph # [place] # Seg Neutrophils % Seg Neuts % (Manual) 77.0 H Lymphocytes % (Manual) 9.0 L Monocytes % (Manual) Seg Neutrophils # Seg Neutrophils # Man 21.5 H Lymphocytes # (Manual) Monocytes # (Manual) 2.0 H Fibrinogen dRVVT Confirm Interp Factor V Activity POC ABG pH POC ABG pCO2 POC ABG pO2 121 H Sodium 135 L Potassium Chloride 96.3 L Carbon Dioxide 21 L BUN 83 H Creatinine 3.0 H Glucose 135 H POC Glucose Calcium Phosphorus Magnesium C-Reactive Protein Total Protein Albumin Triglycerides HDL Cholesterol Urine WBC (Auto) Urine Creatinine Urine Total Protein Vancomycin Trough Rheumatoid Factor Complement C4 Crossmatch 09/09/16 09/09/16 09/09/16 05:41 11:55 14:13 WBC RBC Hgb Hct MCV MCH MCHC RDW Plt Count Lymph % (Auto) [place] % (Auto) Lymph # [place] # Seg Neutrophils % Seg Neuts % (Manual) Lymphocytes % (Manual) Monocytes % (Manual) Seg Neutrophils # Seg Neutrophils # Man Lymphocytes # (Manual) Monocytes # (Manual) Fibrinogen dRVVT Confirm Interp Factor V Activity POC ABG pH POC ABG pCO2 POC ABG pO2 Sodium Potassium Chloride Carbon Dioxide BUN Creatinine Glucose POC Glucose 155 H 186 H Calcium Phosphorus Magnesium C-Reactive Protein Total Protein Albumin Triglycerides HDL Cholesterol Urine WBC (Auto) 25.0 H Urine Creatinine Urine Total Protein Vancomycin Trough Rheumatoid Factor Complement C4 Crossmatch 09/09/16 09/09/16 09/10/16 17:33 23:13 05:09 WBC RBC Hgb Hct MCV MCH MCHC RDW Plt Count Lymph % (Auto) [place] % (Auto) Lymph # [place] # Seg Neutrophils % Seg Neuts % (Manual) Lymphocytes % (Manual) Monocytes % (Manual) Seg Neutrophils # Seg Neutrophils # Man Lymphocytes # (Manual) Monocytes # (Manual) Fibrinogen dRVVT Confirm Interp Factor V Activity POC ABG pH POC ABG pCO2 POC ABG pO2 74 L Sodium Potassium Chloride Carbon Dioxide BUN Creatinine Glucose POC Glucose 211 H 215 H Calcium Phosphorus Magnesium C-Reactive Protein Total Protein Albumin Triglycerides HDL Cholesterol Urine WBC (Auto) Urine Creatinine Urine Total Protein Vancomycin Trough Rheumatoid Factor Complement C4 Crossmatch 09/10/16 09/10/16 09/10/16 05:17 05:17 11:31 WBC 15.8 H RBC 3.25 L Hgb 7.3 L Hct 22.9 L MCV 71 L MCH 23 L MCHC RDW 18.4 H Plt Count Lymph % (Auto) [place] % (Auto) Lymph # [place] # Seg Neutrophils % Seg Neuts % (Manual) 91.0 H Lymphocytes % (Manual) 4.0 L Monocytes % (Manual) Seg Neutrophils # Seg Neutrophils # Man 14.4 H Lymphocytes # (Manual) 0.6 L Monocytes # (Manual) Fibrinogen dRVVT Confirm Interp Factor V Activity POC ABG pH POC ABG pCO2 POC ABG pO2 Sodium Potassium Chloride Carbon Dioxide 21 L BUN 93 H Creatinine 2.9 H Glucose 146 H POC Glucose 188 H Calcium 8.1 L Phosphorus Magnesium C-Reactive Protein Total Protein Albumin Triglycerides HDL Cholesterol Urine WBC (Auto) Urine Creatinine Urine Total Protein Vancomycin Trough Rheumatoid Factor Complement C4 Crossmatch 09/10/16 09/10/16 09/10/16 13:17 17:20 23:32 WBC RBC Hgb Hct MCV MCH MCHC RDW Plt Count Lymph % (Auto) [place] % (Auto) Lymph # [place] # Seg Neutrophils % Seg Neuts % (Manual) Lymphocytes % (Manual) Monocytes % (Manual) Seg Neutrophils # Seg Neutrophils # Man Lymphocytes # (Manual) Monocytes # (Manual) Fibrinogen dRVVT Confirm Interp Factor V Activity POC ABG pH POC ABG pCO2 POC ABG pO2 Sodium Potassium Chloride Carbon Dioxide BUN Creatinine Glucose POC Glucose 199 H 186 H Calcium Phosphorus Magnesium C-Reactive Protein Total Protein Albumin Triglycerides HDL Cholesterol Urine WBC (Auto) Urine Creatinine Urine Total Protein Vancomycin Trough Rheumatoid Factor Complement C4 Crossmatch See Detail 09/11/16 09/11/16 09/11/16 05:10 05:10 05:17 WBC 28.4 H RBC Hgb 9.2 L Hct 29.3 L D MCV 73 L MCH 23 L MCHC RDW 18.9 H Plt Count 452 H Lymph % (Auto) [place] % (Auto) Lymph # [place] # Seg Neutrophils % Seg Neuts % (Manual) 89.5 H Lymphocytes % (Manual) 2.0 L Monocytes % (Manual) Seg Neutrophils # Seg Neutrophils # Man 25.4 H Lymphocytes # (Manual) 0.6 L Monocytes # (Manual) 1.3 H Fibrinogen dRVVT Confirm Interp Factor V Activity POC ABG pH POC ABG pCO2 POC ABG pO2 Sodium 136 L Potassium Chloride Carbon Dioxide 18 L BUN 107 H Creatinine 2.6 H Glucose 187 H POC Glucose 230 H Calcium 8.3 L Phosphorus Magnesium C-Reactive Protein Total Protein Albumin Triglycerides HDL Cholesterol Urine WBC (Auto) Urine Creatinine Urine Total Protein Vancomycin Trough Rheumatoid Factor Complement C4 Crossmatch 09/11/16 09/11/16 09/11/16 05:55 12:02 17:32 WBC RBC Hgb Hct MCV MCH MCHC RDW Plt Count Lymph % (Auto) [place] % (Auto) Lymph # [place] # Seg Neutrophils % Seg Neuts % (Manual) Lymphocytes % (Manual) Monocytes % (Manual) Seg Neutrophils # Seg Neutrophils # Man Lymphocytes # (Manual) Monocytes # (Manual) Fibrinogen dRVVT Confirm Interp Factor V Activity POC ABG pH POC ABG pCO2 33.8 L POC ABG pO2 Sodium Potassium Chloride Carbon Dioxide BUN Creatinine Glucose POC Glucose 191 H 239 H Calcium Phosphorus Magnesium C-Reactive Protein Total Protein Albumin Triglycerides HDL Cholesterol Urine WBC (Auto) Urine Creatinine Urine Total Protein Vancomycin Trough Rheumatoid Factor Complement C4 Crossmatch 09/11/16 09/12/16 09/12/16 23:52 05:09 05:32 WBC RBC Hgb Hct MCV MCH MCHC RDW Plt Count Lymph % (Auto) [place] % (Auto) Lymph # [place] # Seg Neutrophils % Seg Neuts % (Manual) Lymphocytes % (Manual) Monocytes % (Manual) Seg Neutrophils # Seg Neutrophils # Man Lymphocytes # (Manual) Monocytes # (Manual) Fibrinogen dRVVT Confirm Interp Factor V Activity POC ABG pH POC ABG pCO2 34.6 L POC ABG pO2 Sodium Potassium Chloride Carbon Dioxide BUN Creatinine Glucose POC Glucose 265 H 184 H Calcium Phosphorus Magnesium C-Reactive Protein Total Protein Albumin Triglycerides HDL Cholesterol Urine WBC (Auto) Urine Creatinine Urine Total Protein Vancomycin Trough Rheumatoid Factor Complement C4 Crossmatch 09/12/16 09/12/16 09/12/16 06:45 06:45 07:22 WBC 31.7 H RBC 3.54 L Hgb 8.3 L Hct 25.9 L MCV 73 L MCH 23 L MCHC RDW 18.9 H Plt Count Lymph % (Auto) [place] % (Auto) Lymph # [place] # Seg Neutrophils % Seg Neuts % (Manual) 88.5 H Lymphocytes % (Manual) 4.5 L Monocytes % (Manual) Seg Neutrophils # Seg Neutrophils # Man 28.1 H Lymphocytes # (Manual) Monocytes # (Manual) 1.0 H Fibrinogen dRVVT Confirm Interp Factor V Activity POC ABG pH POC ABG pCO2 POC ABG pO2 Sodium Potassium Chloride Carbon Dioxide 20 L BUN 115 H Creatinine 2.7 H Glucose 165 H POC Glucose Calcium 8.0 L Phosphorus Magnesium C-Reactive Protein Total Protein Albumin Triglycerides 217 H HDL Cholesterol Urine WBC (Auto) Urine Creatinine Urine Total Protein Vancomycin Trough Rheumatoid Factor Complement C4 Crossmatch 09/12/16 09/12/16 09/12/16 07:22 09:59 12:21 WBC RBC Hgb Hct MCV MCH MCHC RDW Plt Count Lymph % (Auto) [place] % (Auto) Lymph # [place] # Seg Neutrophils % Seg Neuts % (Manual) Lymphocytes % (Manual) Monocytes % (Manual) Seg Neutrophils # Seg Neutrophils # Man Lymphocytes # (Manual) Monocytes # (Manual) Fibrinogen dRVVT Confirm Interp Positive H Factor V Activity POC ABG pH POC ABG pCO2 POC ABG pO2 Sodium Potassium Chloride Carbon Dioxide BUN Creatinine Glucose POC Glucose 224 H Calcium Phosphorus Magnesium C-Reactive Protein 1.70 H Total Protein Albumin Triglycerides HDL Cholesterol Urine WBC (Auto) Urine Creatinine Urine Total Protein Vancomycin Trough Rheumatoid Factor Complement C4 Crossmatch 09/12/16 09/12/16 09/13/16 16:51 23:28 04:00 WBC 45.0 H* RBC Hgb 9.4 L Hct MCV 75 L MCH 23 L MCHC RDW 19.0 H Plt Count 470 H Lymph % (Auto) [place] % (Auto) Lymph # [place] # Seg Neutrophils % Seg Neuts % (Manual) 89.0 H Lymphocytes % (Manual) 5.0 L Monocytes % (Manual) Seg Neutrophils # Seg Neutrophils # Man 40.1 H Lymphocytes # (Manual) Monocytes # (Manual) Fibrinogen dRVVT Confirm Interp Factor V Activity POC ABG pH POC ABG pCO2 POC ABG pO2 Sodium Potassium Chloride Carbon Dioxide BUN Creatinine Glucose POC Glucose 169 H 150 H Calcium Phosphorus Magnesium C-Reactive Protein Total Protein Albumin Triglycerides HDL Cholesterol Urine WBC (Auto) Urine Creatinine Urine Total Protein Vancomycin Trough Rheumatoid Factor Complement C4 Crossmatch 09/13/16 09/13/16 09/13/16 04:00 11:26 17:31 WBC RBC Hgb Hct MCV MCH MCHC RDW Plt Count Lymph % (Auto) [place] % (Auto) Lymph # [place] # Seg Neutrophils % Seg Neuts % (Manual) Lymphocytes % (Manual) Monocytes % (Manual) Seg Neutrophils # Seg Neutrophils # Man Lymphocytes # (Manual) Monocytes # (Manual) Fibrinogen dRVVT Confirm Interp Factor V Activity POC ABG pH POC ABG pCO2 POC ABG pO2 Sodium Potassium Chloride Carbon Dioxide 20 L BUN 116 H Creatinine 3.0 H Glucose 172 H POC Glucose 140 H 183 H Calcium Phosphorus Magnesium C-Reactive Protein Total Protein 6.2 L Albumin 2.9 L Triglycerides HDL Cholesterol Urine WBC (Auto) Urine Creatinine Urine Total Protein Vancomycin Trough Rheumatoid Factor Complement C4 Crossmatch 09/13/16 09/14/16 09/14/16 23:23 04:06 04:07 WBC 29.4 H RBC Hgb 8.9 L Hct 27.3 L MCV 75 L MCH 24 L MCHC RDW 19.1 H Plt Count Lymph % (Auto) [place] % (Auto) Lymph # [place] # Seg Neutrophils % Seg Neuts % (Manual) 84.0 H Lymphocytes % (Manual) 6.0 L Monocytes % (Manual) 9.0 H Seg Neutrophils # Seg Neutrophils # Man 24.7 H Lymphocytes # (Manual) Monocytes # (Manual) 2.6 H Fibrinogen dRVVT Confirm Interp Factor V Activity POC ABG pH 7.342 L POC ABG pCO2 POC ABG pO2 116 H Sodium Potassium Chloride Carbon Dioxide BUN Creatinine Glucose POC Glucose 154 H Calcium Phosphorus Magnesium C-Reactive Protein Total Protein Albumin Triglycerides HDL Cholesterol Urine WBC (Auto) Urine Creatinine Urine Total Protein Vancomycin Trough Rheumatoid Factor Complement C4 Crossmatch 09/14/16 09/14/16 09/14/16 04:07 05:29 12:19 WBC RBC Hgb Hct MCV MCH MCHC RDW Plt Count Lymph % (Auto) [place] % (Auto) Lymph # [place] # Seg Neutrophils % Seg Neuts % (Manual) Lymphocytes % (Manual) Monocytes % (Manual) Seg Neutrophils # Seg Neutrophils # Man Lymphocytes # (Manual) Monocytes # (Manual) Fibrinogen dRVVT Confirm Interp Factor V Activity POC ABG pH POC ABG pCO2 POC ABG pO2 Sodium 136 L Potassium Chloride Carbon Dioxide 18 L BUN 121 H Creatinine 2.8 H Glucose 214 H POC Glucose 239 H 181 H Calcium Phosphorus Magnesium C-Reactive Protein Total Protein Albumin Triglycerides HDL Cholesterol Urine WBC (Auto) Urine Creatinine Urine Total Protein Vancomycin Trough Rheumatoid Factor Complement C4 Crossmatch 09/14/16 09/14/16 09/15/16 18:12 23:37 05:00 WBC 26.1 H RBC 3.05 L Hgb 7.2 L Hct 22.9 L MCV 75 L MCH 24 L MCHC RDW 19.0 H Plt Count Lymph % (Auto) [place] % (Auto) Lymph # [place] # Seg Neutrophils % Seg Neuts % (Manual) Lymphocytes % (Manual) Monocytes % (Manual) Seg Neutrophils # Seg Neutrophils # Man Lymphocytes # (Manual) Monocytes # (Manual) Fibrinogen dRVVT Confirm Interp Factor V Activity POC ABG pH POC ABG pCO2 POC ABG pO2 Sodium Potassium Chloride Carbon Dioxide BUN Creatinine Glucose POC Glucose 266 H 154 H Calcium Phosphorus Magnesium C-Reactive Protein Total Protein Albumin Triglycerides HDL Cholesterol Urine WBC (Auto) Urine Creatinine Urine Total Protein Vancomycin Trough Rheumatoid Factor Complement C4 Crossmatch 09/15/16 09/15/16 09/15/16 05:00 05:17 12:45 WBC RBC Hgb Hct MCV MCH MCHC RDW Plt Count Lymph % (Auto) [place] % (Auto) Lymph # [place] # Seg Neutrophils % Seg Neuts % (Manual) Lymphocytes % (Manual) Monocytes % (Manual) Seg Neutrophils # Seg Neutrophils # Man Lymphocytes # (Manual) Monocytes # (Manual) Fibrinogen dRVVT Confirm Interp Factor V Activity POC ABG pH POC ABG pCO2 POC ABG pO2 Sodium Potassium 5.2 H Chloride Carbon Dioxide 18 L BUN 139 H Creatinine 3.7 H Glucose 227 H POC Glucose 226 H 244 H Calcium 8.3 L Phosphorus Magnesium C-Reactive Protein Total Protein Albumin Triglycerides HDL Cholesterol Urine WBC (Auto) Urine Creatinine Urine Total Protein Vancomycin Trough Rheumatoid Factor Complement C4 Crossmatch 09/15/16 09/15/16 09/15/16 14:32 17:33 23:35 WBC RBC Hgb Hct MCV MCH MCHC RDW Plt Count Lymph % (Auto) [place] % (Auto) Lymph # [place] # Seg Neutrophils % Seg Neuts % (Manual) Lymphocytes % (Manual) Monocytes % (Manual) Seg Neutrophils # Seg Neutrophils # Man Lymphocytes # (Manual) Monocytes # (Manual) Fibrinogen dRVVT Confirm Interp Factor V Activity POC ABG pH POC ABG pCO2 27.7 L POC ABG pO2 120 H Sodium Potassium Chloride Carbon Dioxide BUN Creatinine Glucose POC Glucose 232 H 167 H Calcium Phosphorus Magnesium C-Reactive Protein Total Protein Albumin Triglycerides HDL Cholesterol Urine WBC (Auto) Urine Creatinine Urine Total Protein Vancomycin Trough Rheumatoid Factor Complement C4 Crossmatch 09/16/16 09/16/16 09/16/16 03:58 10:27 10:27 WBC 19.0 H RBC 2.77 L Hgb 6.5 L Hct 20.9 L MCV 76 L MCH 23 L MCHC RDW 19.3 H Plt Count Lymph % (Auto) 11.0 L [place] % (Auto) Lymph # [place] # 1.1 H Seg Neutrophils % 82.5 H Seg Neuts % (Manual) Lymphocytes % (Manual) Monocytes % (Manual) Seg Neutrophils # 15.7 H Seg Neutrophils # Man Lymphocytes # (Manual) Monocytes # (Manual) Fibrinogen dRVVT Confirm Interp Factor V Activity POC ABG pH POC ABG pCO2 POC ABG pO2 Sodium Potassium Chloride 109.3 H Carbon Dioxide 18 L BUN 139 H Creatinine 4.1 H Glucose 144 H POC Glucose 146 H Calcium 8.1 L Phosphorus Magnesium C-Reactive Protein Total Protein Albumin Triglycerides HDL Cholesterol Urine WBC (Auto) Urine Creatinine Urine Total Protein Vancomycin Trough Rheumatoid Factor Complement C4 Crossmatch 09/16/16 09/16/16 09/16/16 12:04 12:10 13:55 WBC RBC Hgb Hct MCV MCH MCHC RDW Plt Count Lymph % (Auto) [place] % (Auto) Lymph # [place] # Seg Neutrophils % Seg Neuts % (Manual) Lymphocytes % (Manual) Monocytes % (Manual) Seg Neutrophils # Seg Neutrophils # Man Lymphocytes # (Manual) Monocytes # (Manual) Fibrinogen dRVVT Confirm Interp Factor V Activity POC ABG pH POC ABG pCO2 32.9 L POC ABG pO2 Sodium Potassium Chloride Carbon Dioxide BUN Creatinine Glucose POC Glucose 185 H Calcium Phosphorus Magnesium C-Reactive Protein Total Protein Albumin Triglycerides HDL Cholesterol Urine WBC (Auto) Urine Creatinine Urine Total Protein Vancomycin Trough Rheumatoid Factor Complement C4 Crossmatch See Detail 09/16/16 09/16/16 09/16/16 17:55 19:19 23:48 WBC RBC Hgb Hct MCV MCH MCHC RDW Plt Count Lymph % (Auto) [place] % (Auto) Lymph # [place] # Seg Neutrophils % Seg Neuts % (Manual) Lymphocytes % (Manual) Monocytes % (Manual) Seg Neutrophils # Seg Neutrophils # Man Lymphocytes # (Manual) Monocytes # (Manual) Fibrinogen dRVVT Confirm Interp Factor V Activity POC ABG pH POC ABG pCO2 POC ABG pO2 Sodium Potassium Chloride Carbon Dioxide BUN Creatinine Glucose POC Glucose 222 H 107 H Calcium Phosphorus Magnesium C-Reactive Protein Total Protein Albumin Triglycerides HDL Cholesterol Urine WBC (Auto) Urine Creatinine 47.4 H Urine Total Protein 16 H Vancomycin Trough Rheumatoid Factor Complement C4 Crossmatch 09/17/16 09/17/16 09/17/16 03:45 03:45 04:55 WBC 19.6 H RBC 3.41 L Hgb 8.5 L Hct 26.7 L MCV 78 L MCH 25 L MCHC RDW 19.9 H Plt Count Lymph % (Auto) 9.3 L [place] % (Auto) Lymph # [place] # 1.2 H Seg Neutrophils % 83.9 H Seg Neuts % (Manual) Lymphocytes % (Manual) Monocytes % (Manual) Seg Neutrophils # 16.4 H Seg Neutrophils # Man Lymphocytes # (Manual) Monocytes # (Manual) Fibrinogen dRVVT Confirm Interp Factor V Activity POC ABG pH POC ABG pCO2 POC ABG pO2 Sodium 146 H Potassium 5.1 H Chloride 110.9 H Carbon Dioxide 16 L BUN 146 H Creatinine 4.0 H Glucose 108 H POC Glucose 133 H Calcium Phosphorus Magnesium 3.00 H C-Reactive Protein Total Protein Albumin Triglycerides HDL Cholesterol Urine WBC (Auto) Urine Creatinine Urine Total Protein Vancomycin Trough Rheumatoid Factor Complement C4 Crossmatch 09/17/16 09/17/16 09/17/16 11:15 17:33 23:47 WBC RBC Hgb Hct MCV MCH MCHC RDW Plt Count Lymph % (Auto) [place] % (Auto) Lymph # [place] # Seg Neutrophils % Seg Neuts % (Manual) Lymphocytes % (Manual) Monocytes % (Manual) Seg Neutrophils # Seg Neutrophils # Man Lymphocytes # (Manual) Monocytes # (Manual) Fibrinogen dRVVT Confirm Interp Factor V Activity POC ABG pH POC ABG pCO2 POC ABG pO2 Sodium Potassium Chloride Carbon Dioxide BUN Creatinine Glucose POC Glucose 176 H 246 H 148 H Calcium Phosphorus Magnesium C-Reactive Protein Total Protein Albumin Triglycerides HDL Cholesterol Urine WBC (Auto) Urine Creatinine Urine Total Protein Vancomycin Trough Rheumatoid Factor Complement C4 Crossmatch 09/18/16 09/18/16 09/18/16 05:33 08:31 08:31 WBC 18.0 H RBC 3.17 L Hgb 9.0 L Hct 25.7 L MCV MCH MCHC 35 H RDW 20.4 H Plt Count Lymph % (Auto) [place] % (Auto) Lymph # [place] # Seg Neutrophils % Seg Neuts % (Manual) Lymphocytes % (Manual) Monocytes % (Manual) Seg Neutrophils # Seg Neutrophils # Man Lymphocytes # (Manual) Monocytes # (Manual) Fibrinogen dRVVT Confirm Interp Factor V Activity POC ABG pH POC ABG pCO2 POC ABG pO2 Sodium Potassium Chloride Carbon Dioxide 15 L BUN 124 H Creatinine 3.8 H Glucose POC Glucose 120 H Calcium 8.1 L Phosphorus Magnesium C-Reactive Protein Total Protein Albumin Triglycerides HDL Cholesterol Urine WBC (Auto) Urine Creatinine Urine Total Protein Vancomycin Trough Rheumatoid Factor Complement C4 Crossmatch 09/18/16 09/18/16 09/18/16 12:03 15:34 17:50 WBC RBC Hgb Hct MCV MCH MCHC RDW Plt Count Lymph % (Auto) [place] % (Auto) Lymph # [place] # Seg Neutrophils % Seg Neuts % (Manual) Lymphocytes % (Manual) Monocytes % (Manual) Seg Neutrophils # Seg Neutrophils # Man Lymphocytes # (Manual) Monocytes # (Manual) Fibrinogen dRVVT Confirm Interp Factor V Activity POC ABG pH POC ABG pCO2 25.7 L POC ABG pO2 66 L Sodium Potassium Chloride Carbon Dioxide BUN Creatinine Glucose POC Glucose 156 H 220 H Calcium Phosphorus Magnesium C-Reactive Protein Total Protein Albumin Triglycerides HDL Cholesterol Urine WBC (Auto) Urine Creatinine Urine Total Protein Vancomycin Trough Rheumatoid Factor Complement C4 Crossmatch 09/19/16 09/19/16 09/19/16 06:21 09:50 09:50 WBC 17.1 H RBC 3.49 L Hgb 9.0 L Hct 28.1 L MCV MCH 26 L MCHC RDW 20.8 H Plt Count Lymph % (Auto) 11.5 L [place] % (Auto) 7.5 H Lymph # [place] # 1.3 H Seg Neutrophils % 79.8 H Seg Neuts % (Manual) Lymphocytes % (Manual) Monocytes % (Manual) Seg Neutrophils # 13.7 H Seg Neutrophils # Man Lymphocytes # (Manual) Monocytes # (Manual) Fibrinogen dRVVT Confirm Interp Factor V Activity POC ABG pH POC ABG pCO2 POC ABG pO2 Sodium Potassium Chloride 108.6 H Carbon Dioxide 15 L BUN 125 H Creatinine 4.1 H Glucose 124 H POC Glucose 119 H Calcium Phosphorus Magnesium C-Reactive Protein Total Protein Albumin Triglycerides HDL Cholesterol Urine WBC (Auto) Urine Creatinine Urine Total Protein Vancomycin Trough Rheumatoid Factor Complement C4 Crossmatch 09/19/16 09/19/16 09/19/16 11:25 17:53 23:36 WBC RBC Hgb Hct MCV MCH MCHC RDW Plt Count Lymph % (Auto) [place] % (Auto) Lymph # [place] # Seg Neutrophils % Seg Neuts % (Manual) Lymphocytes % (Manual) Monocytes % (Manual) Seg Neutrophils # Seg Neutrophils # Man Lymphocytes # (Manual) Monocytes # (Manual) Fibrinogen dRVVT Confirm Interp Factor V Activity POC ABG pH POC ABG pCO2 POC ABG pO2 Sodium Potassium Chloride Carbon Dioxide BUN Creatinine Glucose POC Glucose 160 H 245 H 121 H Calcium Phosphorus Magnesium C-Reactive Protein Total Protein Albumin Triglycerides HDL Cholesterol Urine WBC (Auto) Urine Creatinine Urine Total Protein Vancomycin Trough Rheumatoid Factor Complement C4 Crossmatch 09/20/16 09/20/16 09/20/16 04:10 04:10 04:10 WBC 17.0 H RBC 3.21 L Hgb 8.2 L Hct 25.5 L MCV MCH 26 L MCHC RDW 20.9 H Plt Count Lymph % (Auto) [place] % (Auto) Lymph # [place] # Seg Neutrophils % Seg Neuts % (Manual) Lymphocytes % (Manual) Monocytes % (Manual) Seg Neutrophils # Seg Neutrophils # Man Lymphocytes # (Manual) Monocytes # (Manual) Fibrinogen dRVVT Confirm Interp Factor V Activity POC ABG pH POC ABG pCO2 POC ABG pO2 Sodium Potassium Chloride 111.0 H Carbon Dioxide 16 L BUN 129 H Creatinine 3.7 H Glucose 115 H POC Glucose Calcium 8.2 L Phosphorus Magnesium C-Reactive Protein Total Protein Albumin Triglycerides 243 H HDL Cholesterol Urine WBC (Auto) Urine Creatinine Urine Total Protein Vancomycin Trough Rheumatoid Factor Complement C4 Crossmatch 09/20/16 09/20/16 09/20/16 05:40 11:52 16:50 WBC RBC Hgb Hct MCV MCH MCHC RDW Plt Count Lymph % (Auto) [place] % (Auto) Lymph # [place] # Seg Neutrophils % Seg Neuts % (Manual) Lymphocytes % (Manual) Monocytes % (Manual) Seg Neutrophils # Seg Neutrophils # Man Lymphocytes # (Manual) Monocytes # (Manual) Fibrinogen dRVVT Confirm Interp Factor V Activity POC ABG pH POC ABG pCO2 POC ABG pO2 Sodium Potassium Chloride Carbon Dioxide BUN Creatinine Glucose POC Glucose 131 H 183 H 236 H Calcium Phosphorus Magnesium C-Reactive Protein Total Protein Albumin Triglycerides HDL Cholesterol Urine WBC (Auto) Urine Creatinine Urine Total Protein Vancomycin Trough Rheumatoid Factor Complement C4 Crossmatch 09/20/16 09/21/16 09/21/16 23:51 03:30 04:44 WBC RBC Hgb Hct MCV MCH MCHC RDW Plt Count Lymph % (Auto) [place] % (Auto) Lymph # [place] # Seg Neutrophils % Seg Neuts % (Manual) Lymphocytes % (Manual) Monocytes % (Manual) Seg Neutrophils # Seg Neutrophils # Man Lymphocytes # (Manual) Monocytes # (Manual) Fibrinogen dRVVT Confirm Interp Factor V Activity POC ABG pH POC ABG pCO2 POC ABG pO2 Sodium Potassium Chloride Carbon Dioxide BUN Creatinine Glucose POC Glucose 114 H 141 H Calcium Phosphorus Magnesium 2.70 H C-Reactive Protein Total Protein Albumin Triglycerides HDL Cholesterol Urine WBC (Auto) Urine Creatinine Urine Total Protein Vancomycin Trough Rheumatoid Factor Complement C4 Crossmatch 09/21/16 09/21/16 09/21/16 07:45 07:45 10:01 WBC 13.8 H RBC 2.94 L Hgb 7.5 L Hct 23.5 L MCV MCH 26 L MCHC RDW 21.2 H Plt Count Lymph % (Auto) 6.9 L [place] % (Auto) 9.4 H Lymph # 0.9 L [place] # 1.3 H Seg Neutrophils % 83.2 H Seg Neuts % (Manual) Lymphocytes % (Manual) Monocytes % (Manual) Seg Neutrophils # 11.5 H Seg Neutrophils # Man Lymphocytes # (Manual) Monocytes # (Manual) Fibrinogen dRVVT Confirm Interp Factor V Activity POC ABG pH 7.308 L POC ABG pCO2 31.9 L POC ABG pO2 148 H Sodium 147 H Potassium Chloride 114.2 H Carbon Dioxide 15 L BUN 120 H Creatinine 3.9 H Glucose 156 H POC Glucose Calcium 8.2 L Phosphorus Magnesium C-Reactive Protein Total Protein Albumin Triglycerides HDL Cholesterol Urine WBC (Auto) Urine Creatinine Urine Total Protein Vancomycin Trough Rheumatoid Factor Complement C4 Crossmatch 09/21/16 09/21/16 09/21/16 12:00 12:03 13:00 WBC RBC Hgb Hct MCV MCH MCHC RDW Plt Count Lymph % (Auto) [place] % (Auto) Lymph # [place] # Seg Neutrophils % Seg Neuts % (Manual) Lymphocytes % (Manual) Monocytes % (Manual) Seg Neutrophils # Seg Neutrophils # Man Lymphocytes # (Manual) Monocytes # (Manual) Fibrinogen dRVVT Confirm Interp Factor V Activity POC ABG pH POC ABG pCO2 POC ABG pO2 Sodium Potassium Chloride Carbon Dioxide BUN Creatinine Glucose POC Glucose 163 H Calcium Phosphorus Magnesium C-Reactive Protein Total Protein Albumin Triglycerides HDL Cholesterol Urine WBC (Auto) Urine Creatinine 54.8 H Urine Total Protein Vancomycin Trough 2.3 L Rheumatoid Factor Complement C4 Crossmatch 09/21/16 09/21/16 09/22/16 16:51 23:17 06:27 WBC RBC Hgb Hct MCV MCH MCHC RDW Plt Count Lymph % (Auto) [place] % (Auto) Lymph # [place] # Seg Neutrophils % Seg Neuts % (Manual) Lymphocytes % (Manual) Monocytes % (Manual) Seg Neutrophils # Seg Neutrophils # Man Lymphocytes # (Manual) Monocytes # (Manual) Fibrinogen dRVVT Confirm Interp Factor V Activity POC ABG pH POC ABG pCO2 POC ABG pO2 Sodium Potassium Chloride Carbon Dioxide BUN Creatinine Glucose POC Glucose 206 H 114 H 115 H Calcium Phosphorus Magnesium C-Reactive Protein Total Protein Albumin Triglycerides HDL Cholesterol Urine WBC (Auto) Urine Creatinine Urine Total Protein Vancomycin Trough Rheumatoid Factor Complement C4 Crossmatch 09/22/16 09/22/16 09/22/16 07:50 07:50 12:00 WBC 17.8 H RBC 3.04 L Hgb 8.0 L Hct 24.7 L MCV MCH 26 L MCHC RDW 21.6 H Plt Count Lymph % (Auto) [place] % (Auto) Lymph # [place] # Seg Neutrophils % Seg Neuts % (Manual) Lymphocytes % (Manual) Monocytes % (Manual) Seg Neutrophils # Seg Neutrophils # Man Lymphocytes # (Manual) Monocytes # (Manual) Fibrinogen dRVVT Confirm Interp Factor V Activity POC ABG pH POC ABG pCO2 POC ABG pO2 Sodium 150 H Potassium Chloride 118.2 H Carbon Dioxide 14 L BUN 111 H Creatinine 3.7 H Glucose 157 H POC Glucose 183 H Calcium Phosphorus Magnesium C-Reactive Protein Total Protein Albumin Triglycerides HDL Cholesterol Urine WBC (Auto) Urine Creatinine Urine Total Protein Vancomycin Trough Rheumatoid Factor Complement C4 Crossmatch 09/22/16 09/22/16 09/23/16 17:29 23:10 05:00 WBC 19.2 H RBC 3.13 L Hgb 8.0 L Hct 25.2 L MCV MCH 26 L MCHC RDW 22.1 H Plt Count Lymph % (Auto) [place] % (Auto) Lymph # [place] # Seg Neutrophils % Seg Neuts % (Manual) 92.0 H Lymphocytes % (Manual) 3.0 L Monocytes % (Manual) Seg Neutrophils # Seg Neutrophils # Man 17.7 H Lymphocytes # (Manual) 0.6 L Monocytes # (Manual) Fibrinogen dRVVT Confirm Interp Factor V Activity POC ABG pH POC ABG pCO2 POC ABG pO2 Sodium Potassium Chloride Carbon Dioxide BUN Creatinine Glucose POC Glucose 197 H 169 H Calcium Phosphorus Magnesium C-Reactive Protein Total Protein Albumin Triglycerides HDL Cholesterol Urine WBC (Auto) Urine Creatinine Urine Total Protein Vancomycin Trough Rheumatoid Factor Complement C4 Crossmatch 09/23/16 09/23/16 09/23/16 05:00 05:00 05:10 WBC RBC Hgb Hct MCV MCH MCHC RDW Plt Count Lymph % (Auto) [place] % (Auto) Lymph # [place] # Seg Neutrophils % Seg Neuts % (Manual) Lymphocytes % (Manual) Monocytes % (Manual) Seg Neutrophils # Seg Neutrophils # Man Lymphocytes # (Manual) Monocytes # (Manual) Fibrinogen dRVVT Confirm Interp Factor V Activity POC ABG pH POC ABG pCO2 POC ABG pO2 Sodium 147 H Potassium 3.2 L Chloride 115.7 H Carbon Dioxide 13 L BUN 111 H Creatinine 3.8 H Glucose 194 H POC Glucose 188 H Calcium 7.3 L D Phosphorus Magnesium C-Reactive Protein 3.20 H Total Protein Albumin Triglycerides HDL Cholesterol Urine WBC (Auto) Urine Creatinine Urine Total Protein Vancomycin Trough Rheumatoid Factor Complement C4 Crossmatch Allied health notes reviewed: RT
[2016-09-23] MEDS ORDERED: DURAGESIC TD SCH (14:00)
--- NOTE | 2016-09-23 14:12 | Progress Note ---
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 High BUN likely due to steroids * Her urine output seems to be improving as well. * Shall reassess her daily regarding need for renal replacement therapy * Patient remains acidotic. Continue intravenous bicarbonate drip as well as oral NaBicarb 1300mg TID through feeding tube * Vent management per critical care * Dose medications for renal function * Avoid potential nephrotoxins * Serum sodium is 147. Continue hypotonic fluids Subjective Date of service: 09/23/16 Principal diagnosis: Acute resp failure on MVS; S/P Acute CVA; Acute Encephalopathy Interval history: Patient remains in the ICU. She is currently on 30% FiO2. Sedated. She is also on an amiodarone as well as Juan Antonio-Synephrine drip. Objective - Vital Signs Vital signs: Vital Signs - 12hr 09/23/16 09/23/16 09/23/16 02:30 03:00 03:12 Temperature Pulse Rate 98 H 103 H 108 H Respiratory 25 H 21 Rate Respiratory Rate [ Generalized] Blood Pressure 115/65 118/70 118/70 O2 Sat by Pulse 99 100 100 Oximetry O2 Sat by Pulse Oximetry [ Assessment] 09/23/16 09/23/16 09/23/16 03:30 04:00 04:30 Temperature 99.0 F Pulse Rate 116 H 115 H 114 H Respiratory 36 H 37 H 37 H Rate Respiratory Rate [ Generalized] Blood Pressure 120/60 113/53 115/53 O2 Sat by Pulse 94 91 100 Oximetry O2 Sat by Pulse Oximetry [ Assessment] 09/23/16 09/23/16 09/23/16 05:00 05:30 06:00 Temperature Pulse Rate 108 H 110 H 113 H Respiratory 34 H 35 H 33 H Rate Respiratory Rate [ Generalized] Blood Pressure 100/56 100/51 110/44 O2 Sat by Pulse 100 96 100 Oximetry O2 Sat by Pulse Oximetry [ Assessment] 09/23/16 09/23/16 09/23/16 06:30 07:00 07:30 Temperature Pulse Rate 113 H 117 H 118 H Respiratory 40 H 32 H 39 H Rate Respiratory Rate [ Generalized] Blood Pressure 95/60 96/54 87/47 O2 Sat by Pulse 100 100 100 Oximetry O2 Sat by Pulse Oximetry [ Assessment] 09/23/16 09/23/16 09/23/16 07:51 08:00 08:30 Temperature 99.1 F Pulse Rate 119 H 122 H Respiratory 38 H 37 H Rate Respiratory Rate [ Generalized] Blood Pressure 96/52 94/50 O2 Sat by Pulse 100 100 Oximetry O2 Sat by Pulse Oximetry [ Assessment] 09/23/16 09/23/16 09/23/16 08:32 09:01 09:03 Temperature Pulse Rate 120 H 124 H Respiratory 36 H Rate Respiratory Rate [ Generalized] Blood Pressure 94/50 87/46 O2 Sat by Pulse 100 100 Oximetry O2 Sat by Pulse 100 Oximetry [ Assessment] 09/23/16 09/23/16 09/23/16 09:31 10:00 10:30 Temperature Pulse Rate 123 H 126 H 128 H Respiratory 17 43 H 52 H Rate Respiratory Rate [ Generalized] Blood Pressure 89/44 88/62 99/49 O2 Sat by Pulse 100 100 100 Oximetry O2 Sat by Pulse Oximetry [ Assessment] 09/23/16 09/23/16 09/23/16 11:00 11:19 11:30 Temperature Pulse Rate 131 H 129 H Respiratory 36 H 41 H 41 H Rate Respiratory 45 H Rate [ Generalized] Blood Pressure 93/58 89/65 O2 Sat by Pulse 100 100 Oximetry O2 Sat by Pulse Oximetry [ Assessment] 09/23/16 09/23/16 09/23/16 11:46 12:00 12:21 Temperature 99.6 F Pulse Rate 127 H 128 H 127 H Respiratory 33 H Rate Respiratory Rate [ Generalized] Blood Pressure 89/65 97/68 93/56 O2 Sat by Pulse 100 100 100 Oximetry O2 Sat by Pulse Oximetry [ Assessment] 09/23/16 12:37 Temperature Pulse Rate 126 H Respiratory Rate Respiratory Rate [ Generalized] Blood Pressure 93/56 O2 Sat by Pulse 100 Oximetry O2 Sat by Pulse Oximetry [ Assessment] - General Appearance General appearance: well-developed, well-nourished, appears stated age, intubated EENT: PERRL, mucous membranes moist Neck: no JVD, no carotid bruit, supple, other (tracheostomy tube in place) Respiratory: Present: Clear to Ascultation Cardiology: regular, normal heart rate, S1S2, no murmurs Gastrointestinal: normal, normoactive bowel sounds, other (PEG tube in place) Integumentary: no rash - Lab 09/23/16 05:00 09/23/16 05:00 Most recent lab results Calcium 7.3 mg/dL (8.4-10.2) L D 09/23/16 05:00 Phosphorus 4.30 mg/dL (2.5-4.5) D 09/08/16 06:18 Magnesium 2.70 mg/dL (1.7-2.3) H 09/21/16 03:30 Urine Creatinine 54.8 mg/dL (0.1-20.0) H 09/21/16 12:00 Urine Sodium 36 mEq/L 09/16/16 19:19 Urine Total Protein 16 mg/dL (5-11.8) H 09/16/16 19:19
--- NOTE | 2016-09-23 14:32 | Progress Note ---
Assessment and Plan - Patient Problems (1) Leukocytosis (leucocytosis) Current Visit: Yes Status: Acute Qualifiers: Leukocytosis type: leukemoid reaction Qualified Code(s): D72.823 - Leukemoid reaction Plan to address problem: 1. Will order sputum/ bronchial fluid culture and then start inhaled Tobramycin empirically. 2. Continue enteral Vancomycin and Flagyl. Subjective Date of service: 09/23/16 Principal diagnosis: Acute resp failure on MVS; S/P Acute CVA; Acute Encephalopathy Interval history: Remains in ICU. Tachycardic to 120s with increased work of breathing. Objective - Constitutional Vitals: Vital Signs Temp Pulse Resp BP Pulse Ox 99.6 F 126 H 33 H 93/56 100 09/23/16 12:00 09/23/16 12:37 09/23/16 12:00 09/23/16 12:37 09/23/16 12:37 Temperature -Last 24 Hours Temperature 99.6 F Temperature 99.1 F Temperature 99.0 F Temperature 99.9 F Temperature 99.5 F Temperature 98 F General appearance: Present: mild distress, other (increased work of breathing/ anxiety) - Neck Neck: other (tracheostomy) - Respiratory Respiratory effort: normal Respiratory: bilateral: CTA, negative: rhonchi, wheezing - Cardiovascular Rhythm: regular (HR 120-130s) Heart Sounds: Present: S1 & S2 Extremities: No edema - Gastrointestinal General gastrointestinal: Present: soft, non-tender, non-distended, other ((+) PEG tube) - Integumentary Integumentary: clear, no rash - Neurologic Neurologic: focal deficits - Labs CBC & Chem 7: 09/23/16 05:00 09/23/16 05:00 Labs: Abnormal lab results 09/22/16 09/22/16 09/23/16 Range/Units 17:29 23:10 05:00 WBC 19.2 H (4.5-11.0) K/mm3 RBC 3.13 L (3.65-5.03) M/mm3 Hgb 8.0 L (10.1-14.3) gm/dl Hct 25.2 L (30.3-42.9) % MCH 26 L (28-32) pg RDW 22.1 H (13.2-15.2) % Seg Neuts % (Manual) 92.0 H (40.0-70.0) % Lymphocytes % (Manual) 3.0 L (13.4-35.0) % Seg Neutrophils # Man 17.7 H (1.8-7.7) K/mm3 Lymphocytes # (Manual) 0.6 L (1.2-5.4) K/mm3 POC ABG pCO2 (35-45) POC ABG pO2 (80-105) Sodium (137-145) mmol/L Potassium (3.6-5.0) mmol/L Chloride (98-107) mmol/L Carbon Dioxide (22-30) mmol/L BUN (7-17) mg/dL Creatinine (0.7-1.2) mg/dL Glucose (65-100) mg/dL POC Glucose 197 H 169 H (70-105) Calcium (8.4-10.2) mg/dL C-Reactive Protein (0.00-1.30) mg/dL 09/23/16 09/23/16 09/23/16 Range/Units 05:00 05:00 05:10 WBC (4.5-11.0) K/mm3 RBC (3.65-5.03) M/mm3 Hgb (10.1-14.3) gm/dl Hct (30.3-42.9) % MCH (28-32) pg RDW (13.2-15.2) % Seg Neuts % (Manual) (40.0-70.0) % Lymphocytes % (Manual) (13.4-35.0) % Seg Neutrophils # Man (1.8-7.7) K/mm3 Lymphocytes # (Manual) (1.2-5.4) K/mm3 POC ABG pCO2 (35-45) POC ABG pO2 (80-105) Sodium 147 H (137-145) mmol/L Potassium 3.2 L (3.6-5.0) mmol/L Chloride 115.7 H (98-107) mmol/L Carbon Dioxide 13 L (22-30) mmol/L BUN 111 H (7-17) mg/dL Creatinine 3.8 H (0.7-1.2) mg/dL Glucose 194 H (65-100) mg/dL POC Glucose 188 H (70-105) Calcium 7.3 L D (8.4-10.2) mg/dL C-Reactive Protein 3.20 H (0.00-1.30) mg/dL 09/23/16 09/23/16 Range/Units 11:37 12:29 WBC (4.5-11.0) K/mm3 RBC (3.65-5.03) M/mm3 Hgb (10.1-14.3) gm/dl Hct (30.3-42.9) % MCH (28-32) pg RDW (13.2-15.2) % Seg Neuts % (Manual) (40.0-70.0) % Lymphocytes % (Manual) (13.4-35.0) % Seg Neutrophils # Man (1.8-7.7) K/mm3 Lymphocytes # (Manual) (1.2-5.4) K/mm3 POC ABG pCO2 18.9 L (35-45) POC ABG pO2 143 H (80-105) Sodium (137-145) mmol/L Potassium (3.6-5.0) mmol/L Chloride (98-107) mmol/L Carbon Dioxide (22-30) mmol/L BUN (7-17) mg/dL Creatinine (0.7-1.2) mg/dL Glucose (65-100) mg/dL POC Glucose 153 H (70-105) Calcium (8.4-10.2) mg/dL C-Reactive Protein (0.00-1.30) mg/dL Microbiology 09/13/16 10:30 Urine,[place] Urine Culture - Final NO GROWTH AFTER 48 HOURS 09/13/16 09:04 Peripheral/Venous Blood Culture - Final NO GROWTH AFTER 5 DAYS 09/13/16 08:39 Peripheral/Venous Blood Culture - Final NO GROWTH AFTER 5 DAYS 09/15/16 18:44 Stool Stool Occult Blood (HORTENCIA) - Final 09/13/16 14:06 Tracheal Aspirate Sputum Culture - Final 09/11/16 15:03 Stool C. difficile DNA Amplification - Final 09/10/16 10:58 Urine,Clean Catch Urine Culture - Preliminary NO GROWTH AFTER 48 HOURS 09/07/16 17:39 Tracheal Aspirate Sputum Culture - Final
[2016-09-23] MEDS: D5W 1,000 ML with SODIUM BICARBONATE 75 MEQ IV SCH (18:56)
[2016-09-23] MEDS: TOBRAMYCIN INHALATION (ADULT) IH SCH (19:15)
[2016-09-23] MEDS ORDERED: NACL 0.9% 250ML 250 ML IV ONE (20:33)
[2016-09-23] MEDS ORDERED: ALBUTEIN IV ONE (21:05)
[2016-09-23] MEDS ORDERED: VASELINE LIP THERAPY TP PRN (21:27)
[2016-09-23] MEDS ORDERED: ARTIFICIAL TEARS OPHTH OINT OU PRN (21:27)
[2016-09-23] MEDS ORDERED: ZOSYN/NS 2.25 GM/50ML 2.25 GM/50 ML BAG IV SCH (22:00)
[2016-09-23] MEDS: fentaNYL DRIP Premix 2,000 MCG/100 ML BAG IV SCH (22:12)
[2016-09-23] MEDS: ZOSYN/NS 2.25 GM/50ML 2.25 GM/50 ML BAG IV SCH (23:12)
--- NOTE | 2016-09-24 00:01 | XRay Report ---
FINAL REPORT PROCEDURE: XR CHEST 1V AP TECHNIQUE: Chest radiograph anteroposterior view. CPT 97095 HISTORY: pneumonia COMPARISON: No prior studies are available for comparison. FINDINGS: Heart: Normal. Mediastinum/Vessels: Normal. Lungs/Pleural space: Normal. Bony thorax: No acute osseous abnormality. Life support devices: A tracheostomy tube is in place. A left-sided PICC line is terminating at the level of distal SVC. IMPRESSION: No acute pulmonary abnormality.
[2016-09-24] MEDS: NEO-SYNEPHRINE 100 MG in NACL 0.9% 90 ML IV SCH ×3 (00:32→20:20)
[2016-09-24] MEDS: HumuLIN R SUB-Q SCH ×5 (00:57→23:48)
[2016-09-24] MEDS: SODIUM BICARBONATE PO SCH ×4 (01:18→21:36)
[2016-09-24] MEDS: VANCOMYCIN PO FEEDTUBE SCH ×4 (01:18→18:47)
[2016-09-24] MEDS: Vasostrict 20 UNIT in NACL 0.9% 100 ML IV SCH (05:20)
[2016-09-24] MEDS ORDERED: NACL 0.9% 1000 ML 1,000 ML ONE (05:23)
[2016-09-24] MEDS ORDERED: NACL 0.9% 1000 ML 1,000 ML IV ONE ×2 (06:09→16:00)
[2016-09-24] MEDS: FLAGYL 500 MG/100 ML 500 MG/100 ML BAG IV SCH ×3 (06:30→23:56)
[2016-09-24] MEDS: ZOSYN/NS 2.25 GM/50ML 2.25 GM/50 ML BAG IV SCH ×4 (06:33→23:17)
[2016-09-24] MEDS: fentaNYL DRIP Premix 2,000 MCG/100 ML BAG IV SCH (06:50)
[2016-09-24 07:11] LABS: BUN/Creatinine Ratio 23.95; Calcium 6.5 mg/dL (8.4-10.2)
[2016-09-24] MEDS: HEPARIN SUB-Q SCH ×3 (08:24→23:08)
[2016-09-24] MEDS: LEVOPHED DRIP 4 MG/NS 250 ML 4 MG/250 ML BAG IV SCH ×3 (08:35→21:23)
[2016-09-24] MEDS: ASPIRIN PO SCH (09:17)
[2016-09-24] MEDS: PROTONIX PO SCH ×2 (09:18→23:50)
[2016-09-24] MEDS: LEVEMIR (NF) SUB-Q SCH (09:18)
[2016-09-24] MEDS: PLAVIX FEEDTUBE SCH (09:18)
[2016-09-24] MEDS: REGLAN IV SCH ×2 (09:20→23:27)
--- NOTE | 2016-09-24 09:53 | XRay Report ---
AP CHEST 09/24/16 CLINICAL: Respiratory failure. COMPARISON:09/23/16 FINDINGS: The tracheostomy tube is in satisfactory position. A left PICC line tip is in the distal SVC. The heart is borderline large. Normal pulmonary vessels. Mild bibasal subsegmental atelectasis. The lungs are otherwise clear. No pneumothorax. IMPRESSION: Mild bibasal subsegmental atelectasis. Borderline cardiomegaly but no CHF.
--- NOTE | 2016-09-24 09:53 | Progress Note ---
Assessment and Plan Assessment: Acute hypoxic respiratory failure on mechanical ventilation s/p trach and PEG Acute left MCA CVA echocardiogram demonstrates at least moderate LVH but a normal LV systolic function, EF 50-55%. no thrombus visualized on transthoracic echocardiogram. Hypertension Now patient is hypotensive Acute on chronic renal failure AG metabolic acidosis on bicarbonate drip Leukocytosis ? etiology, leukemoid vs steroid induced vs sepsis Diabetes mellitus Anemia requiring transfusion of PRBCs Paroxysmal Afib Tele is showing intermittent episodes of afib superimposed on sinus tachycardia Recommendations: All blood pressure meds have been held Continue IV pressors Continue low-dose IV amiodarone this should not contribute to hypertension and will help with arrhythmia suppression Awaiting neurology input in terms of when to safely start full anticoagulation Prognosis is extremely guarded Subjective Date of service: 09/24/16 Principal diagnosis: Acute resp failure on MVS; S/P Acute CVA; Acute Encephalopathy Interval history: No change in his status And kidneys to be hypertensive Objective Vital Signs Temp Pulse Pulse Pulse Resp Resp Resp 09/24/16 08:00 100.0 F H 09/24/16 07:42 116 H 09/24/16 07:16 115 H 52 H 09/24/16 07:00 115 H 52 H 09/24/16 06:46 114 H 51 H 09/24/16 06:30 114 H 42 H 09/24/16 06:15 114 H 24 09/24/16 06:00 116 H 29 H 09/24/16 05:45 115 H 42 H 09/24/16 05:30 114 H 38 H 09/24/16 05:16 113 H 26 H 09/24/16 05:00 118 H 30 H 09/24/16 04:46 121 H 36 H 09/24/16 04:30 120 H 29 H 09/24/16 04:16 122 H 39 H 09/24/16 04:00 102.4 F H 123 H 123 H 42 H 09/24/16 03:51 124 H 09/24/16 03:46 124 H 43 H 09/24/16 03:30 125 H 47 H 09/24/16 03:16 125 H 47 H 09/24/16 03:00 125 H 45 H 09/24/16 02:46 126 H 46 H 09/24/16 02:30 126 H 47 H 09/24/16 02:16 126 H 46 H 09/24/16 02:00 126 H 48 H 09/24/16 01:46 127 H 50 H 09/24/16 01:30 126 H 49 H 09/24/16 01:16 126 H 41 H 09/24/16 01:00 126 H 48 H 09/24/16 00:46 126 H 41 H 09/24/16 00:30 126 H 51 H 09/24/16 00:16 127 H 47 H 09/24/16 00:07 99.4 F 09/24/16 00:00 127 H 127 H 33 H 09/23/16 23:46 126 H 40 H 09/23/16 23:30 126 H 34 H 09/23/16 23:15 128 H 48 H 09/23/16 23:00 129 H 60 H 09/23/16 22:46 127 H 54 H 09/23/16 22:30 129 H 57 H 09/23/16 22:16 128 H 52 H 09/23/16 22:00 127 H 51 H 50 H 09/23/16 21:46 128 H 57 H 09/23/16 21:30 129 H 59 H 09/23/16 21:16 129 H 55 H 09/23/16 21:00 128 H 55 H 09/23/16 20:46 129 H 55 H 09/23/16 20:34 129 H 56 H 09/23/16 20:30 129 H 56 H 09/23/16 20:20 129 H 58 H 09/23/16 20:10 129 H 53 H 09/23/16 20:00 129 H 128 H 55 H 09/23/16 19:50 131 H 55 H 09/23/16 19:46 131 H 130 H 43 H 53 H 09/23/16 19:41 101.9 F H 09/23/16 19:40 130 H 56 H 09/23/16 19:36 131 H 53 H 09/23/16 19:31 130 H 53 H 09/23/16 19:30 130 H 53 H 09/23/16 19:26 130 H 54 H 09/23/16 19:20 131 H 43 H 09/23/16 19:16 129 H 40 H 09/23/16 19:10 129 H 54 H 09/23/16 19:06 129 H 54 H 09/23/16 19:00 129 H 52 H 09/23/16 18:56 129 H 47 H 09/23/16 18:50 128 H 54 H 09/23/16 18:46 130 H 50 H 09/23/16 18:40 128 H 49 H 09/23/16 18:36 129 H 54 H 09/23/16 18:30 128 H 49 H 09/23/16 18:26 129 H 48 H 09/23/16 18:20 128 H 53 H 09/23/16 18:16 129 H 52 H 09/23/16 18:00 129 H 49 H 09/23/16 17:49 131 H 09/23/16 17:30 130 H 26 H 09/23/16 17:00 129 H 47 H 09/23/16 16:30 126 H 42 H 09/23/16 16:29 09/23/16 16:21 128 H 09/23/16 16:00 100.1 F H 126 H 43 H 09/23/16 15:31 131 H 35 H 09/23/16 15:00 126 H 43 H 09/23/16 14:31 129 H 31 H 09/23/16 14:01 126 H 36 H 09/23/16 13:30 126 H 42 H 09/23/16 13:00 127 H 37 H 09/23/16 12:37 126 H 09/23/16 12:30 126 H 21 09/23/16 12:21 127 H 09/23/16 12:00 99.6 F 128 H 33 H 09/23/16 11:46 127 H 09/23/16 11:30 129 H 41 H 09/23/16 11:19 41 H 09/23/16 11:00 131 H 36 H 45 H 09/23/16 10:30 128 H 52 H 09/23/16 10:00 126 H 43 H BP Pulse Ox Pulse Ox 09/24/16 08:00 09/24/16 07:42 106/41 09/24/16 07:16 141/120 95 09/24/16 07:00 167/138 96 09/24/16 06:46 140/79 95 09/24/16 06:30 104/62 93 09/24/16 06:15 97/73 94 09/24/16 06:00 95/63 94 09/24/16 05:45 75/36 94 09/24/16 05:30 93/47 95 09/24/16 05:16 69/26 96 09/24/16 05:00 79/42 95 09/24/16 04:46 104/46 97 09/24/16 04:30 97/23 09/24/16 04:16 82/49 98 09/24/16 04:00 104/46 96 09/24/16 03:51 90/52 98 09/24/16 03:46 90/52 98 09/24/16 03:30 94/57 98 09/24/16 03:16 81/29 93 09/24/16 03:00 101/31 97 09/24/16 02:46 89/44 99 09/24/16 02:30 103/39 98 09/24/16 02:16 100/52 99 09/24/16 02:00 103/49 97 09/24/16 01:46 96/42 99 09/24/16 01:30 98/48 99 09/24/16 01:16 93/63 99 09/24/16 01:00 112/29 100 09/24/16 00:46 112/29 100 09/24/16 00:30 102/60 100 09/24/16 00:16 97/73 100 09/24/16 00:07 09/24/16 00:00 96/48 98 09/23/16 23:46 91/58 100 09/23/16 23:30 104/55 100 09/23/16 23:15 100 09/23/16 23:00 108/54 100 100 09/23/16 22:46 103/76 100 09/23/16 22:30 105/66 100 09/23/16 22:16 135/113 100 09/23/16 22:00 88/52 100 09/23/16 21:46 88/44 100 09/23/16 21:30 88/52 100 09/23/16 21:16 89/57 100 09/23/16 21:00 98/47 98 09/23/16 20:46 111/22 100 09/23/16 20:34 95/70 98 09/23/16 20:30 95/70 99 09/23/16 20:20 110/41 99 09/23/16 20:10 91/62 100 09/23/16 20:00 91/62 100 09/23/16 19:50 85/49 99 09/23/16 19:46 92/58 100 09/23/16 19:41 09/23/16 19:40 89/57 98 09/23/16 19:36 89/57 99 09/23/16 19:31 09/23/16 19:30 89/57 97 09/23/16 19:26 92/58 99 09/23/16 19:20 92/58 98 09/23/16 19:16 107/41 98 09/23/16 19:10 107/41 97 09/23/16 19:06 89/57 98 09/23/16 19:00 89/57 98 09/23/16 18:56 113/47 99 09/23/16 18:50 113/47 98 09/23/16 18:46 104/48 99 09/23/16 18:40 102/59 99 09/23/16 18:36 102/59 98 09/23/16 18:30 102/59 100 09/23/16 18:26 93/57 100 09/23/16 18:20 93/57 99 09/23/16 18:16 90/45 98 09/23/16 18:00 81/41 99 09/23/16 17:49 88/41 100 09/23/16 17:30 97/35 100 09/23/16 17:00 93/55 100 09/23/16 16:30 95/63 100 09/23/16 16:29 100 09/23/16 16:21 90/59 100 09/23/16 16:00 100/58 100 09/23/16 15:31 91/21 100 09/23/16 15:00 81/58 100 09/23/16 14:31 95/49 81 L 09/23/16 14:01 92/59 100 09/23/16 13:30 109/46 100 09/23/16 13:00 108/56 100 09/23/16 12:37 93/56 100 09/23/16 12:30 105/54 100 09/23/16 12:21 93/56 100 09/23/16 12:00 97/68 100 09/23/16 11:46 89/65 100 09/23/16 11:30 89/65 100 09/23/16 11:19 09/23/16 11:00 93/58 100 09/23/16 10:30 99/49 100 09/23/16 10:00 88/62 100 - Physical Examination Narrative exam: GEN: Intubated HEENT: No JVD is evident NECK: Supple CVS: Heart sounds appear normal no murmur noted LUNGS/CHEST: Clear to auscultation ABD: Soft nontender Extremities: No edema noted PSY: Appears calm General: Other (intubated via trach) Neck: Positive: neck supple Abdomen: Positive: Soft Extremities: Present: normal - Labs and Meds Comprehensive Metabolic Panel 09/24/16 Range/Units 05:21 Sodium 138 D (137-145) mmol/L Potassium 4.9 D (3.6-5.0) mmol/L Chloride 104.7 (98-107) mmol/L Carbon Dioxide 10 L (22-30) mmol/L BUN 103 H (7-17) mg/dL Creatinine 4.3 H (0.7-1.2) mg/dL Glucose 163 H (65-100) mg/dL Calcium 6.5 L (8.4-10.2) mg/dL - Imaging and Cardiology EKG: image reviewed - Allied health notes Allied health notes reviewed: RT
[2016-09-24] MEDS ORDERED: CORDARONE 900 MG in D5W 482 ML IV SCH (12:00)
--- NOTE | 2016-09-24 12:09 | Gastroenterology Progress Note ---
Assessment and Plan GI: no signs bleeding - stable h/h - will need egd/colon when stable based on progress - call when needed Subjective Date of service: 09/24/16 Principal diagnosis: Acute resp failure on MVS; S/P Acute CVA; Acute Encephalopathy Interval history: - no signs bleeding overnight Objective - Constitutional Vitals: Temp Pulse Resp BP Pulse Ox 100.0 F H 125 H 36 H 89/59 95 09/24/16 08:00 09/24/16 11:45 09/24/16 10:45 09/24/16 11:45 09/24/16 07:16 General appearance: no acute distress - Respiratory Respiratory: bilateral: rhonchi - Cardiovascular Rhythm: regular Heart Sounds: Present: S1 & S2 - Gastrointestinal General gastrointestinal: Present: soft, non-tender - Labs CBC & Chem 7: 09/23/16 05:00 09/24/16 05:21 Labs: Laboratory Results - last 24 hr 09/23/16 09/23/16 09/23/16 11:37 12:29 18:01 POC ABG pH 7.433 POC ABG pCO2 18.9 L POC ABG pO2 143 H POC ABG HCO3 12.6 POC ABG Total CO2 13 POC ABG O2 Sat 99 POC ABG Base Excess -12 FiO2 30 Sodium Potassium Chloride Carbon Dioxide Anion Gap BUN Creatinine Estimated GFR BUN/Creatinine Ratio Glucose POC Glucose 153 H 108 H Calcium 09/23/16 09/23/16 09/24/16 21:19 23:43 05:16 POC ABG pH 7.417 POC ABG pCO2 17.3 L POC ABG pO2 112 H POC ABG HCO3 11.1 POC ABG Total CO2 12 POC ABG O2 Sat 99 POC ABG Base Excess -13 FiO2 28 Sodium Potassium Chloride Carbon Dioxide Anion Gap BUN Creatinine Estimated GFR BUN/Creatinine Ratio Glucose POC Glucose 143 H 164 H Calcium 09/24/16 05:21 POC ABG pH POC ABG pCO2 POC ABG pO2 POC ABG HCO3 POC ABG Total CO2 POC ABG O2 Sat POC ABG Base Excess FiO2 Sodium 138 D Potassium 4.9 D Chloride 104.7 Carbon Dioxide 10 L Anion Gap 28 BUN 103 H Creatinine 4.3 H Estimated GFR 13 BUN/Creatinine Ratio 23.95 Glucose 163 H POC Glucose Calcium 6.5 L
--- NOTE | 2016-09-24 12:14 | Progress Note ---
Assessment and Plan Assessment and plan: --Acute on chronic kidney disease stage III , worsening renal function , nephrology following Possible hemodialysis today --Hypotension/probably septic shock versus hypovolemic On levophed , titrate systolic blood pressures to more than 100 --Acute hypoxic respiratory failure vent dependent/unable to wean s/p trach and PEG, continue PEG feeds --Paroxysmal A. fib, with intermittent RVR cardiology started amiodarone drip Titrate heart rates to less than 100 --Acute large left MCA CVA status post TPA/encephalopathy Aspirin/statin/supportive care --Aspiration pneumonia Continue vancomycin and Flagyl, ID following --Acute exacerbation of COPD; Nebulizers tapering dose of steroids antibiotics and ventilatory support, pulmonary following --Anemia requiring blood transfusion; closely monitor H&H and transfuse as needed --2 diabetes mellitus; Accu-Chek sliding scale coverage and ADA diet and insulin as needed --Moderate to severe protein calorie malnutrition with albumin of 2.2 Nutritional supplements, tube feeding, supportive care --DVT prophylaxis with heparin --Full CODE STATUS Discharge planning ; LTAC placement when clinically stable Critical Care time 32 minutes The high probability of a clinically significant, sudden or life threatening deterioration of the [cardiovascular, pulmonary, infectious, renal and neurological] system(s) required my full and direct attention, intervention and personal management. The aggregate critical care time was [32] minutes. This time is in addition to time spent performing reported procedures but includes the following: [] Data Review and interpretation [] Patient assessment and monitoring of vital signs [] Documentation [] Medication orders and management Patient is critically ill, family aware, I discussed with the family periodically patient's severity of illness, poor prognosis, advanced directives Brother and son wanted aggressive management and full CODE STATUS. History Interval history: Patient seen and evaluated in ICU this morning medical records reviewed Patient looks critically ill, Cachectic and in respiratory distress Status post trach on vent and status post PEG Remains tachycardic and tachypneic, noncommunicative Febrile, MAXIMUM TEMPERATURE 101.4 worsening renal function may need hemodialysis Hospitalist Physical - Constitutional Vitals: Temp Pulse Resp BP Pulse Ox 100.0 F H 125 H 36 H 89/59 95 09/24/16 08:00 09/24/16 11:45 09/24/16 10:45 09/24/16 11:45 09/24/16 07:16 General appearance: Present: no acute distress, well-nourished, obese - EENT Eyes: Present: PERRL, EOM intact ENT: other (tracheostomy in place) - Neck Neck: Present: supple, normal ROM - Respiratory Respiratory effort: normal Respiratory: bilateral: diminished, rales, negative: rhonchi, wheezing - Cardiovascular Rhythm: regular Heart Sounds: Present: S1 & S2 - Extremities Extremities: no ischemia Extremity abnormal: edema - Abdominal General gastrointestinal: soft, non-tender, non-distended, normal bowel sounds, other (PEG tube in place) - Integumentary Integumentary: Present: clear, warm - Psychiatric Psychiatric: other (tracheostomy on vent) - Neurologic Neurologic: other ( tracheostomy on vent) Results - Labs CBC & Chem 7: 09/23/16 05:00 09/24/16 05:21 Labs: Laboratory Last Values WBC 19.2 K/mm3 (4.5-11.0) H 09/23/16 05:00 RBC 3.13 M/mm3 (3.65-5.03) L 09/23/16 05:00 Hgb 8.0 gm/dl (10.1-14.3) L 09/23/16 05:00 Hct 25.2 % (30.3-42.9) L 09/23/16 05:00 MCV 81 fl (79-97) 09/23/16 05:00 MCH 26 pg (28-32) L 09/23/16 05:00 MCHC 32 % (30-34) 09/23/16 05:00 RDW 22.1 % (13.2-15.2) H 09/23/16 05:00 Plt Count 297 K/mm3 (140-440) 09/23/16 05:00 Lymph % (Auto) 6.9 % (13.4-35.0) L 09/21/16 07:45 [place] % (Auto) 9.4 % (0.0-7.3) H 09/21/16 07:45 Eos % (Auto) 0.3 % (0.0-4.3) 09/21/16 07:45 Baso % (Auto) 0.2 % (0.0-1.8) 09/21/16 07:45 Lymph # 0.9 K/mm3 (1.2-5.4) L 09/21/16 07:45 [place] # 1.3 K/mm3 (0.0-0.8) H 09/21/16 07:45 Eos # 0.0 K/mm3 (0.0-0.4) 09/21/16 07:45 Baso # 0.0 K/mm3 (0.0-0.1) 09/21/16 07:45 Add Manual Diff Complete 09/23/16 05:00 Total Counted 100 09/23/16 05:00 Seg Neutrophils % [employer] Apprentice 09/23/16 05:00 Seg Neuts % (Manual) 92.0 % (40.0-70.0) H 09/23/16 05:00 Band Neutrophils % 1.0 % 09/23/16 05:00 Lymphocytes % (Manual) 3.0 % (13.4-35.0) L 09/23/16 05:00 Reactive Lymphs % (Man) 0 % 09/23/16 05:00 Monocytes % (Manual) 4.0 % (0.0-7.3) 09/23/16 05:00 Eosinophils % (Manual) 0 % (0.0-4.3) 09/23/16 05:00 Basophils % (Manual) 0 % (0.0-1.8) 09/23/16 05:00 Metamyelocytes % 0 % 09/23/16 05:00 Myelocytes % 0 % 09/23/16 05:00 Promyelocytes % 0 % 09/23/16 05:00 Blast Cells % 0 % 09/23/16 05:00 Nucleated RBC % Not Reportable 09/23/16 05:00 Seg Neutrophils # 11.5 K/mm3 (1.8-7.7) H 09/21/16 07:45 Seg Neutrophils # Man 17.7 K/mm3 (1.8-7.7) H 09/23/16 05:00 Band Neutrophils # 0.2 K/mm3 09/23/16 05:00 Lymphocytes # (Manual) 0.6 K/mm3 (1.2-5.4) L 09/23/16 05:00 Abs React Lymphs (Man) 0.0 K/mm3 09/23/16 05:00 Monocytes # (Manual) 0.8 K/mm3 (0.0-0.8) 09/23/16 05:00 Eosinophils # (Manual) 0.0 K/mm3 (0.0-0.4) 09/23/16 05:00 Basophils # (Manual) 0.0 K/mm3 (0.0-0.1) 09/23/16 05:00 Metamyelocytes # 0.0 K/mm3 09/23/16 05:00 Myelocytes # 0.0 K/mm3 09/23/16 05:00 Promyelocytes # 0.0 K/mm3 09/23/16 05:00 Blast Cells # 0.0 K/mm3 09/23/16 05:00 Pathologist Review 09/13/16 04:00 WBC Morphology Not Reportable 09/23/16 05:00 Hypersegmented Neuts Not Reportable 09/23/16 05:00 Hyposegmented Neuts Not Reportable 09/23/16 05:00 Hypogranular Neuts Not Reportable 09/23/16 05:00 Smudge Cells Not Reportable 09/23/16 05:00 Toxic Granulation Not Reportable 09/23/16 05:00 Toxic Vacuolation Not Reportable 09/23/16 05:00 Dohle Bodies Not Reportable 09/23/16 05:00 Pelger-Huet Anomaly Not Reportable 09/23/16 05:00 Jasmina Rods Not Reportable 09/23/16 05:00 Platelet Estimate Appears normal 09/23/16 05:00 Clumped Platelets Not Reportable 09/23/16 05:00 Plt Clumps, EDTA Not Reportable 09/23/16 05:00 Large Platelets Not Reportable 09/23/16 05:00 Giant Platelets Not Reportable 09/23/16 05:00 Platelet Satelliting Not Reportable 09/23/16 05:00 Plt Morphology Comment Not Reportable 09/23/16 05:00 RBC Morphology Not Reportable 09/23/16 05:00 Dimorphic RBCs Not Reportable 09/23/16 05:00 Polychromasia Not Reportable 09/23/16 05:00 Hypochromasia Not Reportable 09/23/16 05:00 Poikilocytosis Not Reportable 09/23/16 05:00 Anisocytosis Not Reportable 09/23/16 05:00 Microcytosis Not Reportable 09/23/16 05:00 Macrocytosis Not Reportable 09/23/16 05:00 Spherocytes Not Reportable 09/23/16 05:00 Pappenheimer Bodies Not Reportable 09/23/16 05:00 Sickle Cells Not Reportable 09/23/16 05:00 Target Cells Not Reportable 09/23/16 05:00 Tear Drop Cells Not Reportable 09/23/16 05:00 Ovalocytes Rare 09/23/16 05:00 Helmet Cells Not Reportable 09/23/16 05:00 [place] Bodies Not Reportable 09/23/16 05:00 D Lo Rings Not Reportable 09/23/16 05:00 Chuck Cells Not Reportable 09/23/16 05:00 Bite Cells Rare 09/23/16 05:00 Crenated Cell Rare 09/23/16 05:00 Elliptocytes Not Reportable 09/23/16 05:00 Acanthocytes (Spur) Not Reportable 09/23/16 05:00 Rouleaux Not Reportable 09/23/16 05:00 Hemoglobin C Crystals Not Reportable 09/23/16 05:00 Schistocytes Not Reportable 09/23/16 05:00 Malaria parasites Not Reportable 09/23/16 05:00 ESR > 140.0 mm/Hr (0-20) 09/08/16 11:48 Jun Bodies Not Reportable 09/23/16 05:00 Hem Pathologist Commnt No 09/23/16 05:00 PT 13.8 Sec. (12.2-14.9) 09/15/16 05:00 INR 1.01 (0.87-1.13) 09/15/16 05:00 APTT 24.4 Sec. (24.2-36.6) 09/15/16 05:00 Thrombin Time 16.8 Sec. (15.1-19.6) 09/03/16 00:10 Fibrinogen 750 mg/dl (211-480) H 09/08/16 11:48 Lupus Anticoagulant see below 09/12/16 09:59 LA PTT Baseline See scanned report 09/12/16 09:59 dRVVT Confirm Interp Positive (Negative) H 09/12/16 09:59 dRVVT Screen 50:50 See scanned report 09/12/16 09:59 dRVVT Mix Interpret See scanned report 09/12/16 09:59 Protein C Antigen 122 % (70-140) 09/08/16 15:35 Free Protein S 97 % normal (50-147) 09/08/16 15:35 Total Protein S 109 % (70-140) 09/08/16 15:35 Antithrombin III Ag 100 % (80-120) 09/08/16 15:35 Factor V Activity 182 % (65-150) H 09/08/16 15:35 POC ABG pH 7.417 (7.35-7.45) 09/23/16 21:19 POC ABG pCO2 17.3 (35-45) L 09/23/16 21:19 POC ABG pO2 112 (80-105) H 09/23/16 21:19 POC ABG HCO3 11.1 09/23/16 21:19 POC ABG Total CO2 12 09/23/16 21:19 POC ABG O2 Sat 99 09/23/16 21:19 POC ABG Base Excess -13 09/23/16 21:19 FiO2 28 % 09/23/16 21:19 Sodium 138 mmol/L (137-145) D 09/24/16 05:21 Potassium 4.9 mmol/L (3.6-5.0) D 09/24/16 05:21 Chloride 104.7 mmol/L (98-107) 09/24/16 05:21 Carbon Dioxide 10 mmol/L (22-30) L 09/24/16 05:21 Anion Gap 28 mmol/L 09/24/16 05:21 BUN 103 mg/dL (7-17) H 09/24/16 05:21 Creatinine 4.3 mg/dL (0.7-1.2) H 09/24/16 05:21 Estimated GFR 13 ml/min 09/24/16 05:21 BUN/Creatinine Ratio 23.95 % 09/24/16 05:21 Glucose 163 mg/dL (65-100) H 09/24/16 05:21 POC Glucose 164 (70-105) H 09/24/16 05:16 Osmolality 351 Mosm/kg 09/16/16 11:47 Lactic Acid 1.40 mmol/L (0.7-2.0) 09/23/16 05:00 Calcium 6.5 mg/dL (8.4-10.2) L 09/24/16 05:21 Phosphorus 4.30 mg/dL (2.5-4.5) D 09/08/16 06:18 Magnesium 2.70 mg/dL (1.7-2.3) H 09/21/16 03:30 Total Bilirubin 0.30 mg/dL (0.1-1.2) 09/13/16 04:00 AST 20 units/L (5-40) 09/13/16 04:00 ALT 18 units/L (7-56) 09/13/16 04:00 Alkaline Phosphatase 72 units/L (35-129) 09/13/16 04:00 Ammonia 27.0 umol/L (25-60) 09/07/16 08:37 Total Creatine Kinase 67 units/L (30-135) 09/03/16 11:26 CK-MB (CK-2) 1.4 ng/mL (0.0-4.0) 09/03/16 11:26 CK-MB (CK-2) Rel Index 2.0 (0-4) 09/03/16 11:26 Troponin T < 0.010 ng/mL (0.00-0.029) 09/06/16 10:43 C-Reactive Protein 3.20 mg/dL (0.00-1.30) H 09/23/16 05:00 Total Protein 6.2 g/dL (6.3-8.2) L 09/13/16 04:00 Albumin 2.9 g/dL (3.9-5) L 09/13/16 04:00 Albumin/Globulin Ratio 0.9 % 09/13/16 04:00 Triglycerides 243 mg/dL (2-149) H 09/20/16 04:10 Cholesterol 189 mg/dL (50-199) 09/04/16 03:31 LDL Cholesterol Direct 126 mg/dL (50-130) 09/04/16 03:31 HDL Cholesterol 31 mg/dL (40-59) L 09/04/16 03:31 Cholesterol/HDL Ratio 6.09 % 09/04/16 03:31 Angiotensin Convert Enz See scanned report 09/08/16 11:48 TSH 1.010 mlU/mL (0.270-4.200) 09/07/16 08:37 HCG, Qual Negative (Negative) 09/03/16 00:10 Urine Color Yellow (Yellow) 09/09/16 14:13 Urine Turbidity Slightly-cloudy (Clear) 09/09/16 14:13 Urine pH 5.0 (5.0-7.0) 09/09/16 14:13 Ur Specific [place] 1.012 (1.003-1.030) 09/09/16 14:13 Urine Protein 30 mg/dl mg/dL (Negative) 09/09/16 14:13 Urine Glucose (UA) Neg mg/dL (Negative) 09/09/16 14:13 Urine Ketones Neg mg/dL (Negative) 09/09/16 14:13 Urine Blood Lg (Negative) 09/09/16 14:13 Urine Nitrite Neg (Negative) 09/09/16 14:13 Urine Bilirubin Neg (Negative) 09/09/16 14:13 Urine Urobilinogen < 2.0 mg/dL (<2.0) 09/09/16 14:13 Ur Leukocyte Esterase Sm (Negative) 09/09/16 14:13 Urine WBC (Auto) 25.0 /HPF (0.0-6.0) H 09/09/16 14:13 Urine RBC (Auto) > 182.0 /HPF (0.0-6.0) 09/09/16 14:13 Urine Bacteria (Auto) 1+ /HPF (Negative) 09/09/16 14:13 Urine WBC Clumps 2+ /HPF 09/07/16 02:47 Hyaline Casts 4 /LPF 09/07/16 02:47 Urine Mucus Few /HPF 09/09/16 14:13 Urine Eosinophils None seen (None Seen) 09/07/16 16:00 Urine Total Volume 1350 09/21/16 12:00 Urine Creatinine 54.8 mg/dL (0.1-20.0) H 09/21/16 12:00 Height (in) 67.0 inches 09/21/16 12:00 Weight (lb) 92.0 lbs 09/21/16 12:00 Creatinine Clearance 15 09/21/16 12:00 Urine Sodium 36 mEq/L 09/16/16 19:19 Urine Total Protein 16 mg/dL (5-11.8) H 09/16/16 19:19 Vancomycin Trough 2.3 ug/mL (5.0-20.0) L 09/21/16 13:00 Random Vancomycin 2.3 ug/mL (0-40.0) 09/09/16 03:00 Urine Opiates Screen Presumptive negative 09/03/16 15:11 Urine Methadone Screen Presumptive positive 09/03/16 15:11 Ur Barbiturates Screen Presumptive positive 09/03/16 15:11 Ur Phencyclidine Scrn Presumptive negative 09/03/16 15:11 Ur Amphetamines Screen Presumptive negative 09/03/16 15:11 U Benzodiazepines Scrn Presumptive negative 09/03/16 15:11 Urine Cocaine Screen Presumptive negative 09/03/16 15:11 U Marijuana (THC) Screen Presumptive positive 09/03/16 15:11 Drugs of Abuse Note Disclamer 09/03/16 15:11 Rheumatoid Factor 24 IU/ml (0-13) H 09/08/16 11:48 SAHIL Screen Negative (Negative) 09/07/16 09:20 Proteinase 3 (PR3) Ab <1.0 AI (<1.0) 09/07/16 09:20 Myeloperoxidase Ab <1.0 AI (<1.0) 09/07/16 09:20 Sjogren's Antibody <1.0 AI (<1.0) 09/08/16 15:35 Scl-70 Scleroderma Ab <1.0 AI (<1.0) 09/08/16 15:35 Centromere B Antibody <1.0 AI (<1.0) 09/08/16 12:02 Cardiolipid IgG Ab <14 GPL (<=14) 09/12/16 09:59 Cardiolipid IgA Ab <11 APL (<=11) 09/12/16 09:59 Cardiolipid IgM Ab <12 MPL (<=12) 09/12/16 09:59 Complement C3 148 mg/dL (90-180) 09/07/16 09:20 Complement C4 58 mg/dL (16-47) H 09/07/16 09:20 RPR Nonreactive (Nonreactive) 09/08/16 11:48 Hep Bs Antigen Non-reactive (Negative) 09/07/16 09:20 Hepatitis C Antibody Non-reactive (NonReactive) 09/07/16 09:20 HIV 1&2 Antibody Rapid Non react (Non React) 09/08/16 11:48 HIV P24 Antigen Non react (Non React) 09/08/16 11:48 Blood Type A POSITIVE 09/16/16 13:55 Antibody Screen TNR 07/28/17 13:55 DELORIS Antibody Screen Negative 09/16/16 13:55 Crossmatch See Detail 09/16/16 13:55
--- NOTE | 2016-09-24 12:45 | Progress Note ---
Assessment and Plan - Patient Problems (1) Acute respiratory failure with hypoxia Current Visit: Yes Status: Acute Plan to address problem: - continue aspiration precautions / address VAP bundles - continue to wean oxygen for MAP > 94% - continue bronchodilators and pulmonary toilet - tapered off systemic steroids (no active needs pulmonary-[place]) - completed empiric levaquin dosing - s/p tracheostomy - placed back on AC mode after review of ABG and secondary to increased work of breathing - increased set rate also (2) Acute CVA (cerebrovascular accident) Current Visit: Yes Status: Acute Plan to address problem: - out of tpA window (initially stopped due to uncontrolled HTN) - Left MCA teritory stroke with some midline shift on last CT - seen by neurology and prognosis for recovery of mental status guarded to poor - optimizing secondary prevention modalities now (BP, lipid anti-platelet therapy) - off systemic steroids now (started earlier for edema) - resumed ASA and Plavix (3) Hypertensive emergency Current Visit: Yes Status: Acute Plan to address problem: - stop all antihypertensives while septic - follow cllinically (4) Obesity (BMI 35.0-39.9 without comorbidity) Current Visit: Yes Status: Chronic Plan to address problem: - adjust tube feeds per glucose and syrup weigher's recommendations - supportive and preventive skin care re: breakdown - to resume tube feeds today - continue reglan re: high residuals (5) Type 2 diabetes mellitus Current Visit: Yes Status: Chronic Qualifiers: Diabetes mellitus complication status: D Diabetes mellitus complication detail: D Diabetic retinopathy severity: D Proliferative retinopathy type: P Diabetes mellitus macular edema: D Diabetes mellitus bed bug exterminator insulin use : D Laterality: L Chronic kidney disease stage: C Plan to address problem: - continue SSI - continue lantus at 8 units sq q24h (6) Leukocytosis (leucocytosis) Current Visit: Yes Status: Acute Qualifiers: Leukocytosis type: leukemoid reaction Qualified Code(s): D72.823 - Leukemoid reaction Plan to address problem: - slowly trending back up - suspect azotemia also contributing - Afebrile - complete AB's per ID recs - lactate WNL and CRP not significantly elevated - will culture and re-evaluate if spikes fevers again (7) Agitation Current Visit: Yes Status: Acute Plan to address problem: - placed fentanyl patch and numbers better re: tachycardia - suspect pain element (8) Atrial fibrillation Current Visit: Yes Status: Acute Qualifiers: Atrial fibrillation type: A Plan to address problem: - cardiology consulted - placed on cardizem drip but stopped secondary to hypotension - will defer to cardiology team (9) JUANITA (acute kidney injury) Current Visit: Yes Status: Acute Plan to address problem: - discussed dialysis with [facility] blind worker yesterday but decision was to continue to watch as she was still making urine - plan is for dialysis today - vascath placed - hopefully BP tolerates (10) Discharge planning issues Current Visit: Yes Status: Acute Plan to address problem: - she remains critically ill on life sustaining interventions including MVS and at risk for further acute deterioration including .....35' CCT Subjective Date of service: 09/24/16 Principal diagnosis: Acute resp failure on MVS; S/P Acute CVA; Acute Encephalopathy Interval history: Seen and examined at bedside; 24 hour events reviewed; nursing and respiratory care staff consulted; became more hypotensive overnight and started on vasopressors after inadequate response to volume resuscitation; AMS is persistent; urine output tapered off; tentatively for HD/UF now; no new issues otherwise and weaning held Objective Vital Signs - 12hr 09/24/16 09/24/16 09/24/16 00:46 01:00 01:16 Temperature Pulse Rate 126 H 126 H 126 H Pulse Rate [ From Monitor] Respiratory 41 H 48 H 41 H Rate Blood Pressure 112/29 112/29 93/63 O2 Sat by Pulse 100 100 99 Oximetry 09/24/16 09/24/16 09/24/16 01:30 01:46 02:00 Temperature Pulse Rate 126 H 127 H 126 H Pulse Rate [ From Monitor] Respiratory 49 H 50 H 48 H Rate Blood Pressure 98/48 96/42 103/49 O2 Sat by Pulse 99 99 97 Oximetry 09/24/16 09/24/16 09/24/16 02:16 02:30 02:46 Temperature Pulse Rate 126 H 126 H 126 H Pulse Rate [ From Monitor] Respiratory 46 H 47 H 46 H Rate Blood Pressure 100/52 103/39 89/44 O2 Sat by Pulse 99 98 99 Oximetry 09/24/16 09/24/16 09/24/16 03:00 03:16 03:30 Temperature Pulse Rate 125 H 125 H 125 H Pulse Rate [ From Monitor] Respiratory 45 H 47 H 47 H Rate Blood Pressure 101/31 81/29 94/57 O2 Sat by Pulse 97 93 98 Oximetry 09/24/16 09/24/16 09/24/16 03:46 03:51 04:00 Temperature 102.4 F H Pulse Rate 124 H 124 H 123 H Pulse Rate [ 123 H From Monitor] Respiratory 43 H 42 H Rate Blood Pressure 90/52 90/52 104/46 O2 Sat by Pulse 98 98 96 Oximetry 09/24/16 09/24/16 09/24/16 04:16 04:30 04:46 Temperature Pulse Rate 122 H 120 H 121 H Pulse Rate [ From Monitor] Respiratory 39 H 29 H 36 H Rate Blood Pressure 82/49 97/23 104/46 O2 Sat by Pulse 98 97 Oximetry 09/24/16 09/24/16 09/24/16 05:00 05:16 05:30 Temperature Pulse Rate 118 H 113 H 114 H Pulse Rate [ From Monitor] Respiratory 30 H 26 H 38 H Rate Blood Pressure 79/42 69/26 93/47 O2 Sat by Pulse 95 96 95 Oximetry 09/24/16 09/24/16 09/24/16 05:45 06:00 06:15 Temperature Pulse Rate 115 H 116 H 114 H Pulse Rate [ From Monitor] Respiratory 42 H 29 H 24 Rate Blood Pressure 75/36 95/63 97/73 O2 Sat by Pulse 94 94 94 Oximetry 09/24/16 09/24/16 09/24/16 06:30 06:46 07:00 Temperature Pulse Rate 114 H 114 H 115 H Pulse Rate [ From Monitor] Respiratory 42 H 51 H 52 H Rate Blood Pressure 104/62 140/79 167/138 O2 Sat by Pulse 93 95 96 Oximetry 09/24/16 09/24/16 09/24/16 07:16 07:30 07:42 Temperature Pulse Rate 115 H 116 H 116 H Pulse Rate [ From Monitor] Respiratory 52 H Rate Blood Pressure 141/120 141/120 106/41 O2 Sat by Pulse 95 Oximetry 09/24/16 09/24/16 09/24/16 07:46 08:00 08:16 Temperature 100.0 F H Pulse Rate 116 H 117 H 118 H Pulse Rate [ 115 H From Monitor] Respiratory 43 H 44 H 43 H Rate Blood Pressure 116/61 86/67 78/53 O2 Sat by Pulse Oximetry 09/24/16 09/24/16 09/24/16 08:30 08:46 09:00 Temperature Pulse Rate 119 H 120 H 122 H Pulse Rate [ From Monitor] Respiratory 43 H 44 H 45 H Rate Blood Pressure 83/47 75/51 75/40 O2 Sat by Pulse Oximetry 09/24/16 09/24/16 09/24/16 09:16 09:30 09:45 Temperature Pulse Rate 124 H 125 H 124 H Pulse Rate [ From Monitor] Respiratory 44 H 44 H 42 H Rate Blood Pressure 91/46 101/51 97/52 O2 Sat by Pulse Oximetry 09/24/16 09/24/16 09/24/16 10:00 10:15 10:30 Temperature Pulse Rate 124 H 124 H 123 H Pulse Rate [ From Monitor] Respiratory 38 H 37 H 41 H Rate Blood Pressure 93/55 114/48 114/48 O2 Sat by Pulse Oximetry 09/24/16 09/24/16 09/24/16 10:45 11:45 12:00 Temperature 101.4 F H Pulse Rate 122 H 125 H Pulse Rate [ From Monitor] Respiratory 36 H Rate Blood Pressure 107/45 89/59 O2 Sat by Pulse Oximetry Constitutional: no acute distress, other (encephalopathic) Eyes: non-icteric, other (tracheostomy tube in midline of neck) ENT: oropharynx moist Neck: supple, no lymphadenopathy Effort: normal Ascultation: Bilateral: diminished breath sounds, rhonchi (bases) Cardiovascular: regular rate and rhythm Gastrointestinal: normoactive bowel sounds, soft, non-tender, non-distended Integumentary: normal Extremities: no cyanosis, no edema, pulses normal, no ischemia or petechiae Neurologic: pupils equal and round, other (sedated) Psychiatric: other (unable to assess) CBC and BMP: 09/25/16 04:20 09/25/16 04:20 ABG, PT/INR, D-dimer: ABG POC ABG pH 7.417 (7.35-7.45) 09/23/16 21:19 POC ABG pCO2 17.3 (35-45) L 09/23/16 21:19 POC ABG pO2 112 (80-105) H 09/23/16 21:19 POC ABG HCO3 11.1 09/23/16 21:19 POC ABG Total CO2 12 09/23/16 21:19 POC ABG O2 Sat 99 09/23/16 21:19 PT/INR, D-dimer PT 13.8 Sec. (12.2-14.9) 09/15/16 05:00 INR 1.01 (0.87-1.13) 09/15/16 05:00 Abnormal lab findings: Abnormal Labs 09/03/16 09/03/16 09/03/16 12:12 15:07 16:20 WBC RBC Hgb Hct MCV MCH MCHC RDW Plt Count Lymph % (Auto) [place] % (Auto) Lymph # [place] # Seg Neutrophils % Seg Neuts % (Manual) Lymphocytes % (Manual) Monocytes % (Manual) Seg Neutrophils # Seg Neutrophils # Man Lymphocytes # (Manual) Monocytes # (Manual) Fibrinogen dRVVT Confirm Interp Factor V Activity POC ABG pH 7.452 H POC ABG pCO2 POC ABG pO2 Sodium Potassium Chloride Carbon Dioxide BUN Creatinine Glucose POC Glucose 178 H Calcium Phosphorus 2.20 L Magnesium 1.60 L C-Reactive Protein Total Protein Albumin Triglycerides HDL Cholesterol Urine WBC (Auto) Urine Creatinine Urine Total Protein Vancomycin Trough Rheumatoid Factor Complement C4 Crossmatch 09/03/16 09/03/16 09/03/16 17:57 17:58 23:50 WBC RBC Hgb Hct MCV MCH MCHC RDW Plt Count Lymph % (Auto) [place] % (Auto) Lymph # [place] # Seg Neutrophils % Seg Neuts % (Manual) Lymphocytes % (Manual) Monocytes % (Manual) Seg Neutrophils # Seg Neutrophils # Man Lymphocytes # (Manual) Monocytes # (Manual) Fibrinogen dRVVT Confirm Interp Factor V Activity POC ABG pH POC ABG pCO2 POC ABG pO2 Sodium Potassium Chloride Carbon Dioxide BUN Creatinine Glucose POC Glucose 162 H 145 H Calcium Phosphorus 2.30 L Magnesium C-Reactive Protein Total Protein Albumin Triglycerides HDL Cholesterol Urine WBC (Auto) Urine Creatinine Urine Total Protein Vancomycin Trough Rheumatoid Factor Complement C4 Crossmatch 09/04/16 09/04/16 09/04/16 03:31 03:31 05:42 WBC RBC Hgb 9.7 L D Hct MCV 72 L MCH 23 L MCHC RDW 17.5 H Plt Count Lymph % (Auto) 11.1 L [place] % (Auto) Lymph # [place] # Seg Neutrophils % 84.3 H Seg Neuts % (Manual) Lymphocytes % (Manual) Monocytes % (Manual) Seg Neutrophils # 8.9 H Seg Neutrophils # Man Lymphocytes # (Manual) Monocytes # (Manual) Fibrinogen dRVVT Confirm Interp Factor V Activity POC ABG pH POC ABG pCO2 POC ABG pO2 Sodium 135 L Potassium 2.9 L* Chloride 97.2 L Carbon Dioxide 19 L BUN Creatinine 1.7 H Glucose 170 H POC Glucose 152 H Calcium Phosphorus Magnesium C-Reactive Protein Total Protein Albumin Triglycerides 160 H HDL Cholesterol 31 L Urine WBC (Auto) Urine Creatinine Urine Total Protein Vancomycin Trough Rheumatoid Factor Complement C4 Crossmatch 09/04/16 09/04/16 09/04/16 11:34 17:46 23:29 WBC RBC Hgb Hct MCV MCH MCHC RDW Plt Count Lymph % (Auto) [place] % (Auto) Lymph # [place] # Seg Neutrophils % Seg Neuts % (Manual) Lymphocytes % (Manual) Monocytes % (Manual) Seg Neutrophils # Seg Neutrophils # Man Lymphocytes # (Manual) Monocytes # (Manual) Fibrinogen dRVVT Confirm Interp Factor V Activity POC ABG pH POC ABG pCO2 POC ABG pO2 Sodium Potassium Chloride Carbon Dioxide BUN Creatinine Glucose POC Glucose 165 H 210 H 139 H Calcium Phosphorus Magnesium C-Reactive Protein Total Protein Albumin Triglycerides HDL Cholesterol Urine WBC (Auto) Urine Creatinine Urine Total Protein Vancomycin Trough Rheumatoid Factor Complement C4 Crossmatch 09/05/16 09/05/16 09/05/16 04:05 04:05 05:38 WBC RBC Hgb Hct MCV 76 L D MCH 23 L MCHC RDW 17.8 H Plt Count Lymph % (Auto) [place] % (Auto) Lymph # [place] # Seg Neutrophils % Seg Neuts % (Manual) Lymphocytes % (Manual) Monocytes % (Manual) Seg Neutrophils # Seg Neutrophils # Man Lymphocytes # (Manual) Monocytes # (Manual) Fibrinogen dRVVT Confirm Interp Factor V Activity POC ABG pH POC ABG pCO2 POC ABG pO2 Sodium 134 L Potassium Chloride Carbon Dioxide 18 L BUN Creatinine 1.8 H Glucose 192 H POC Glucose 175 H Calcium Phosphorus Magnesium C-Reactive Protein Total Protein Albumin Triglycerides HDL Cholesterol Urine WBC (Auto) Urine Creatinine Urine Total Protein Vancomycin Trough Rheumatoid Factor Complement C4 Crossmatch 09/05/16 09/05/16 09/05/16 11:38 17:48 23:22 WBC RBC Hgb Hct MCV MCH MCHC RDW Plt Count Lymph % (Auto) [place] % (Auto) Lymph # [place] # Seg Neutrophils % Seg Neuts % (Manual) Lymphocytes % (Manual) Monocytes % (Manual) Seg Neutrophils # Seg Neutrophils # Man Lymphocytes # (Manual) Monocytes # (Manual) Fibrinogen dRVVT Confirm Interp Factor V Activity POC ABG pH POC ABG pCO2 POC ABG pO2 Sodium Potassium Chloride Carbon Dioxide BUN Creatinine Glucose POC Glucose 164 H 186 H 195 H Calcium Phosphorus Magnesium C-Reactive Protein Total Protein Albumin Triglycerides HDL Cholesterol Urine WBC (Auto) Urine Creatinine Urine Total Protein Vancomycin Trough Rheumatoid Factor Complement C4 Crossmatch 09/06/16 09/06/16 09/06/16 04:12 05:59 07:32 WBC RBC Hgb Hct MCV MCH MCHC RDW Plt Count Lymph % (Auto) [place] % (Auto) Lymph # [place] # Seg Neutrophils % Seg Neuts % (Manual) Lymphocytes % (Manual) Monocytes % (Manual) Seg Neutrophils # Seg Neutrophils # Man Lymphocytes # (Manual) Monocytes # (Manual) Fibrinogen dRVVT Confirm Interp Factor V Activity POC ABG pH 7.514 H POC ABG pCO2 29.1 L POC ABG pO2 72 L Sodium 133 L Potassium 3.4 L Chloride 94.9 L Carbon Dioxide 19 L BUN 30 H Creatinine 2.1 H Glucose 139 H POC Glucose 146 H Calcium Phosphorus Magnesium C-Reactive Protein Total Protein Albumin Triglycerides HDL Cholesterol Urine WBC (Auto) Urine Creatinine Urine Total Protein Vancomycin Trough Rheumatoid Factor Complement C4 Crossmatch 09/06/16 09/06/16 09/06/16 11:57 17:58 19:02 WBC RBC Hgb Hct MCV MCH MCHC RDW Plt Count Lymph % (Auto) [place] % (Auto) Lymph # [place] # Seg Neutrophils % Seg Neuts % (Manual) Lymphocytes % (Manual) Monocytes % (Manual) Seg Neutrophils # Seg Neutrophils # Man Lymphocytes # (Manual) Monocytes # (Manual) Fibrinogen dRVVT Confirm Interp Factor V Activity POC ABG pH 7.465 H POC ABG pCO2 32.0 L POC ABG pO2 Sodium Potassium Chloride Carbon Dioxide BUN Creatinine Glucose POC Glucose 165 H 160 H Calcium Phosphorus Magnesium C-Reactive Protein Total Protein Albumin Triglycerides HDL Cholesterol Urine WBC (Auto) Urine Creatinine Urine Total Protein Vancomycin Trough Rheumatoid Factor Complement C4 Crossmatch 09/06/16 09/07/16 09/07/16 23:45 02:47 02:47 WBC RBC Hgb Hct MCV MCH MCHC RDW Plt Count Lymph % (Auto) [place] % (Auto) Lymph # [place] # Seg Neutrophils % Seg Neuts % (Manual) Lymphocytes % (Manual) Monocytes % (Manual) Seg Neutrophils # Seg Neutrophils # Man Lymphocytes # (Manual) Monocytes # (Manual) Fibrinogen dRVVT Confirm Interp Factor V Activity POC ABG pH POC ABG pCO2 POC ABG pO2 Sodium Potassium Chloride Carbon Dioxide BUN Creatinine Glucose POC Glucose 204 H Calcium Phosphorus Magnesium C-Reactive Protein Total Protein Albumin Triglycerides HDL Cholesterol Urine WBC (Auto) 68.0 H Urine Creatinine 106.1 H Urine Total Protein Vancomycin Trough Rheumatoid Factor Complement C4 Crossmatch 09/07/16 09/07/16 09/07/16 04:50 06:19 06:39 WBC RBC Hgb Hct MCV MCH MCHC RDW Plt Count Lymph % (Auto) [place] % (Auto) Lymph # [place] # Seg Neutrophils % Seg Neuts % (Manual) Lymphocytes % (Manual) Monocytes % (Manual) Seg Neutrophils # Seg Neutrophils # Man Lymphocytes # (Manual) Monocytes # (Manual) Fibrinogen dRVVT Confirm Interp Factor V Activity POC ABG pH 7.457 H POC ABG pCO2 32.1 L POC ABG pO2 76 L Sodium 132 L Potassium Chloride 94.7 L Carbon Dioxide BUN 53 H Creatinine 2.9 H Glucose 151 H POC Glucose 149 H Calcium Phosphorus Magnesium C-Reactive Protein Total Protein Albumin Triglycerides HDL Cholesterol Urine WBC (Auto) Urine Creatinine Urine Total Protein Vancomycin Trough Rheumatoid Factor Complement C4 Crossmatch 09/07/16 09/07/16 09/07/16 09:20 11:43 11:43 WBC 19.4 H RBC Hgb 8.3 L Hct 26.4 L D MCV 72 L D MCH 22 L MCHC RDW 17.9 H Plt Count Lymph % (Auto) 8.5 L [place] % (Auto) Lymph # [place] # 1.0 H Seg Neutrophils % 85.8 H Seg Neuts % (Manual) Lymphocytes % (Manual) Monocytes % (Manual) Seg Neutrophils # 16.6 H Seg Neutrophils # Man Lymphocytes # (Manual) Monocytes # (Manual) Fibrinogen dRVVT Confirm Interp Factor V Activity POC ABG pH POC ABG pCO2 POC ABG pO2 Sodium 134 L Potassium Chloride 97.2 L Carbon Dioxide 20 L BUN 58 H Creatinine 2.9 H Glucose 147 H POC Glucose Calcium Phosphorus 2.40 L Magnesium 2.40 H C-Reactive Protein Total Protein 5.8 L Albumin 2.2 L Triglycerides HDL Cholesterol Urine WBC (Auto) Urine Creatinine Urine Total Protein Vancomycin Trough Rheumatoid Factor Complement C4 58 H Crossmatch 09/07/16 09/07/16 09/07/16 11:50 16:00 17:31 WBC RBC Hgb Hct MCV MCH MCHC RDW Plt Count Lymph % (Auto) [place] % (Auto) Lymph # [place] # Seg Neutrophils % Seg Neuts % (Manual) Lymphocytes % (Manual) Monocytes % (Manual) Seg Neutrophils # Seg Neutrophils # Man Lymphocytes # (Manual) Monocytes # (Manual) Fibrinogen dRVVT Confirm Interp Factor V Activity POC ABG pH POC ABG pCO2 POC ABG pO2 158 H Sodium Potassium Chloride Carbon Dioxide BUN Creatinine Glucose POC Glucose 175 H Calcium Phosphorus Magnesium C-Reactive Protein Total Protein Albumin Triglycerides HDL Cholesterol Urine WBC (Auto) Urine Creatinine 66.3 H Urine Total Protein Vancomycin Trough Rheumatoid Factor Complement C4 Crossmatch 09/07/16 09/08/16 09/08/16 23:50 05:46 06:18 WBC 17.8 H RBC 3.58 L Hgb 8.1 L Hct 25.5 L MCV 71 L MCH 23 L MCHC RDW 18.4 H Plt Count Lymph % (Auto) [place] % (Auto) Lymph # [place] # Seg Neutrophils % Seg Neuts % (Manual) 92.0 H Lymphocytes % (Manual) 6.0 L Monocytes % (Manual) Seg Neutrophils # Seg Neutrophils # Man 16.4 H Lymphocytes # (Manual) 1.1 L Monocytes # (Manual) Fibrinogen dRVVT Confirm Interp Factor V Activity POC ABG pH POC ABG pCO2 34.3 L POC ABG pO2 71 L Sodium Potassium Chloride Carbon Dioxide BUN Creatinine Glucose POC Glucose 216 H Calcium Phosphorus Magnesium C-Reactive Protein Total Protein Albumin Triglycerides HDL Cholesterol Urine WBC (Auto) Urine Creatinine Urine Total Protein Vancomycin Trough Rheumatoid Factor Complement C4 Crossmatch 09/08/16 09/08/16 09/08/16 06:18 06:51 10:55 WBC RBC Hgb Hct MCV MCH MCHC RDW Plt Count Lymph % (Auto) [place] % (Auto) Lymph # [place] # Seg Neutrophils % Seg Neuts % (Manual) Lymphocytes % (Manual) Monocytes % (Manual) Seg Neutrophils # Seg Neutrophils # Man Lymphocytes # (Manual) Monocytes # (Manual) Fibrinogen dRVVT Confirm Interp Factor V Activity POC ABG pH POC ABG pCO2 POC ABG pO2 Sodium 133 L Potassium Chloride 96.9 L Carbon Dioxide 20 L BUN 63 H Creatinine 2.7 H Glucose 195 H POC Glucose 204 H 169 H Calcium Phosphorus Magnesium C-Reactive Protein Total Protein Albumin Triglycerides HDL Cholesterol Urine WBC (Auto) Urine Creatinine Urine Total Protein Vancomycin Trough Rheumatoid Factor Complement C4 Crossmatch 09/08/16 09/08/16 09/08/16 11:48 11:48 11:48 WBC RBC Hgb Hct MCV MCH MCHC RDW Plt Count Lymph % (Auto) [place] % (Auto) Lymph # [place] # Seg Neutrophils % Seg Neuts % (Manual) Lymphocytes % (Manual) Monocytes % (Manual) Seg Neutrophils # Seg Neutrophils # Man Lymphocytes # (Manual) Monocytes # (Manual) Fibrinogen 750 H dRVVT Confirm Interp Factor V Activity POC ABG pH POC ABG pCO2 POC ABG pO2 Sodium Potassium Chloride Carbon Dioxide BUN Creatinine Glucose POC Glucose Calcium Phosphorus Magnesium C-Reactive Protein 15.70 H Total Protein Albumin Triglycerides HDL Cholesterol Urine WBC (Auto) Urine Creatinine Urine Total Protein Vancomycin Trough Rheumatoid Factor 24 H Complement C4 Crossmatch 09/08/16 09/08/16 09/09/16 15:35 18:25 00:24 WBC RBC Hgb Hct MCV MCH MCHC RDW Plt Count Lymph % (Auto) [place] % (Auto) Lymph # [place] # Seg Neutrophils % Seg Neuts % (Manual) Lymphocytes % (Manual) Monocytes % (Manual) Seg Neutrophils # Seg Neutrophils # Man Lymphocytes # (Manual) Monocytes # (Manual) Fibrinogen dRVVT Confirm Interp Factor V Activity 182 H POC ABG pH POC ABG pCO2 POC ABG pO2 Sodium Potassium Chloride Carbon Dioxide BUN Creatinine Glucose POC Glucose 184 H 216 H Calcium Phosphorus Magnesium C-Reactive Protein Total Protein Albumin Triglycerides HDL Cholesterol Urine WBC (Auto) Urine Creatinine Urine Total Protein Vancomycin Trough Rheumatoid Factor Complement C4 Crossmatch 09/09/16 09/09/16 09/09/16 03:00 03:00 04:04 WBC 27.9 H RBC Hgb 8.7 L Hct 28.1 L MCV 72 L MCH 22 L MCHC RDW 18.4 H Plt Count 485 H Lymph % (Auto) [place] % (Auto) Lymph # [place] # Seg Neutrophils % Seg Neuts % (Manual) 77.0 H Lymphocytes % (Manual) 9.0 L Monocytes % (Manual) Seg Neutrophils # Seg Neutrophils # Man 21.5 H Lymphocytes # (Manual) Monocytes # (Manual) 2.0 H Fibrinogen dRVVT Confirm Interp Factor V Activity POC ABG pH POC ABG pCO2 POC ABG pO2 121 H Sodium 135 L Potassium Chloride 96.3 L Carbon Dioxide 21 L BUN 83 H Creatinine 3.0 H Glucose 135 H POC Glucose Calcium Phosphorus Magnesium C-Reactive Protein Total Protein Albumin Triglycerides HDL Cholesterol Urine WBC (Auto) Urine Creatinine Urine Total Protein Vancomycin Trough Rheumatoid Factor Complement C4 Crossmatch 09/09/16 09/09/16 09/09/16 05:41 11:55 14:13 WBC RBC Hgb Hct MCV MCH MCHC RDW Plt Count Lymph % (Auto) [place] % (Auto) Lymph # [place] # Seg Neutrophils % Seg Neuts % (Manual) Lymphocytes % (Manual) Monocytes % (Manual) Seg Neutrophils # Seg Neutrophils # Man Lymphocytes # (Manual) Monocytes # (Manual) Fibrinogen dRVVT Confirm Interp Factor V Activity POC ABG pH POC ABG pCO2 POC ABG pO2 Sodium Potassium Chloride Carbon Dioxide BUN Creatinine Glucose POC Glucose 155 H 186 H Calcium Phosphorus Magnesium C-Reactive Protein Total Protein Albumin Triglycerides HDL Cholesterol Urine WBC (Auto) 25.0 H Urine Creatinine Urine Total Protein Vancomycin Trough Rheumatoid Factor Complement C4 Crossmatch 09/09/16 09/09/16 09/10/16 17:33 23:13 05:09 WBC RBC Hgb Hct MCV MCH MCHC RDW Plt Count Lymph % (Auto) [place] % (Auto) Lymph # [place] # Seg Neutrophils % Seg Neuts % (Manual) Lymphocytes % (Manual) Monocytes % (Manual) Seg Neutrophils # Seg Neutrophils # Man Lymphocytes # (Manual) Monocytes # (Manual) Fibrinogen dRVVT Confirm Interp Factor V Activity POC ABG pH POC ABG pCO2 POC ABG pO2 74 L Sodium Potassium Chloride Carbon Dioxide BUN Creatinine Glucose POC Glucose 211 H 215 H Calcium Phosphorus Magnesium C-Reactive Protein Total Protein Albumin Triglycerides HDL Cholesterol Urine WBC (Auto) Urine Creatinine Urine Total Protein Vancomycin Trough Rheumatoid Factor Complement C4 Crossmatch 09/10/16 09/10/16 09/10/16 05:17 05:17 11:31 WBC 15.8 H RBC 3.25 L Hgb 7.3 L Hct 22.9 L MCV 71 L MCH 23 L MCHC RDW 18.4 H Plt Count Lymph % (Auto) [place] % (Auto) Lymph # [place] # Seg Neutrophils % Seg Neuts % (Manual) 91.0 H Lymphocytes % (Manual) 4.0 L Monocytes % (Manual) Seg Neutrophils # Seg Neutrophils # Man 14.4 H Lymphocytes # (Manual) 0.6 L Monocytes # (Manual) Fibrinogen dRVVT Confirm Interp Factor V Activity POC ABG pH POC ABG pCO2 POC ABG pO2 Sodium Potassium Chloride Carbon Dioxide 21 L BUN 93 H Creatinine 2.9 H Glucose 146 H POC Glucose 188 H Calcium 8.1 L Phosphorus Magnesium C-Reactive Protein Total Protein Albumin Triglycerides HDL Cholesterol Urine WBC (Auto) Urine Creatinine Urine Total Protein Vancomycin Trough Rheumatoid Factor Complement C4 Crossmatch 09/10/16 09/10/16 09/10/16 13:17 17:20 23:32 WBC RBC Hgb Hct MCV MCH MCHC RDW Plt Count Lymph % (Auto) [place] % (Auto) Lymph # [place] # Seg Neutrophils % Seg Neuts % (Manual) Lymphocytes % (Manual) Monocytes % (Manual) Seg Neutrophils # Seg Neutrophils # Man Lymphocytes # (Manual) Monocytes # (Manual) Fibrinogen dRVVT Confirm Interp Factor V Activity POC ABG pH POC ABG pCO2 POC ABG pO2 Sodium Potassium Chloride Carbon Dioxide BUN Creatinine Glucose POC Glucose 199 H 186 H Calcium Phosphorus Magnesium C-Reactive Protein Total Protein Albumin Triglycerides HDL Cholesterol Urine WBC (Auto) Urine Creatinine Urine Total Protein Vancomycin Trough Rheumatoid Factor Complement C4 Crossmatch See Detail 09/11/16 09/11/16 09/11/16 05:10 05:10 05:17 WBC 28.4 H RBC Hgb 9.2 L Hct 29.3 L D MCV 73 L MCH 23 L MCHC RDW 18.9 H Plt Count 452 H Lymph % (Auto) [place] % (Auto) Lymph # [place] # Seg Neutrophils % Seg Neuts % (Manual) 89.5 H Lymphocytes % (Manual) 2.0 L Monocytes % (Manual) Seg Neutrophils # Seg Neutrophils # Man 25.4 H Lymphocytes # (Manual) 0.6 L Monocytes # (Manual) 1.3 H Fibrinogen dRVVT Confirm Interp Factor V Activity POC ABG pH POC ABG pCO2 POC ABG pO2 Sodium 136 L Potassium Chloride Carbon Dioxide 18 L BUN 107 H Creatinine 2.6 H Glucose 187 H POC Glucose 230 H Calcium 8.3 L Phosphorus Magnesium C-Reactive Protein Total Protein Albumin Triglycerides HDL Cholesterol Urine WBC (Auto) Urine Creatinine Urine Total Protein Vancomycin Trough Rheumatoid Factor Complement C4 Crossmatch 09/11/16 09/11/16 09/11/16 05:55 12:02 17:32 WBC RBC Hgb Hct MCV MCH MCHC RDW Plt Count Lymph % (Auto) [place] % (Auto) Lymph # [place] # Seg Neutrophils % Seg Neuts % (Manual) Lymphocytes % (Manual) Monocytes % (Manual) Seg Neutrophils # Seg Neutrophils # Man Lymphocytes # (Manual) Monocytes # (Manual) Fibrinogen dRVVT Confirm Interp Factor V Activity POC ABG pH POC ABG pCO2 33.8 L POC ABG pO2 Sodium Potassium Chloride Carbon Dioxide BUN Creatinine Glucose POC Glucose 191 H 239 H Calcium Phosphorus Magnesium C-Reactive Protein Total Protein Albumin Triglycerides HDL Cholesterol Urine WBC (Auto) Urine Creatinine Urine Total Protein Vancomycin Trough Rheumatoid Factor Complement C4 Crossmatch 09/11/16 09/12/16 09/12/16 23:52 05:09 05:32 WBC RBC Hgb Hct MCV MCH MCHC RDW Plt Count Lymph % (Auto) [place] % (Auto) Lymph # [place] # Seg Neutrophils % Seg Neuts % (Manual) Lymphocytes % (Manual) Monocytes % (Manual) Seg Neutrophils # Seg Neutrophils # Man Lymphocytes # (Manual) Monocytes # (Manual) Fibrinogen dRVVT Confirm Interp Factor V Activity POC ABG pH POC ABG pCO2 34.6 L POC ABG pO2 Sodium Potassium Chloride Carbon Dioxide BUN Creatinine Glucose POC Glucose 265 H 184 H Calcium Phosphorus Magnesium C-Reactive Protein Total Protein Albumin Triglycerides HDL Cholesterol Urine WBC (Auto) Urine Creatinine Urine Total Protein Vancomycin Trough Rheumatoid Factor Complement C4 Crossmatch 09/12/16 09/12/16 09/12/16 06:45 06:45 07:22 WBC 31.7 H RBC 3.54 L Hgb 8.3 L Hct 25.9 L MCV 73 L MCH 23 L MCHC RDW 18.9 H Plt Count Lymph % (Auto) [place] % (Auto) Lymph # [place] # Seg Neutrophils % Seg Neuts % (Manual) 88.5 H Lymphocytes % (Manual) 4.5 L Monocytes % (Manual) Seg Neutrophils # Seg Neutrophils # Man 28.1 H Lymphocytes # (Manual) Monocytes # (Manual) 1.0 H Fibrinogen dRVVT Confirm Interp Factor V Activity POC ABG pH POC ABG pCO2 POC ABG pO2 Sodium Potassium Chloride Carbon Dioxide 20 L BUN 115 H Creatinine 2.7 H Glucose 165 H POC Glucose Calcium 8.0 L Phosphorus Magnesium C-Reactive Protein Total Protein Albumin Triglycerides 217 H HDL Cholesterol Urine WBC (Auto) Urine Creatinine Urine Total Protein Vancomycin Trough Rheumatoid Factor Complement C4 Crossmatch 09/12/16 09/12/16 09/12/16 07:22 09:59 12:21 WBC RBC Hgb Hct MCV MCH MCHC RDW Plt Count Lymph % (Auto) [place] % (Auto) Lymph # [place] # Seg Neutrophils % Seg Neuts % (Manual) Lymphocytes % (Manual) Monocytes % (Manual) Seg Neutrophils # Seg Neutrophils # Man Lymphocytes # (Manual) Monocytes # (Manual) Fibrinogen dRVVT Confirm Interp Positive H Factor V Activity POC ABG pH POC ABG pCO2 POC ABG pO2 Sodium Potassium Chloride Carbon Dioxide BUN Creatinine Glucose POC Glucose 224 H Calcium Phosphorus Magnesium C-Reactive Protein 1.70 H Total Protein Albumin Triglycerides HDL Cholesterol Urine WBC (Auto) Urine Creatinine Urine Total Protein Vancomycin Trough Rheumatoid Factor Complement C4 Crossmatch 09/12/16 09/12/16 09/13/16 16:51 23:28 04:00 WBC 45.0 H* RBC Hgb 9.4 L Hct MCV 75 L MCH 23 L MCHC RDW 19.0 H Plt Count 470 H Lymph % (Auto) [place] % (Auto) Lymph # [place] # Seg Neutrophils % Seg Neuts % (Manual) 89.0 H Lymphocytes % (Manual) 5.0 L Monocytes % (Manual) Seg Neutrophils # Seg Neutrophils # Man 40.1 H Lymphocytes # (Manual) Monocytes # (Manual) Fibrinogen dRVVT Confirm Interp Factor V Activity POC ABG pH POC ABG pCO2 POC ABG pO2 Sodium Potassium Chloride Carbon Dioxide BUN Creatinine Glucose POC Glucose 169 H 150 H Calcium Phosphorus Magnesium C-Reactive Protein Total Protein Albumin Triglycerides HDL Cholesterol Urine WBC (Auto) Urine Creatinine Urine Total Protein Vancomycin Trough Rheumatoid Factor Complement C4 Crossmatch 09/13/16 09/13/16 09/13/16 04:00 11:26 17:31 WBC RBC Hgb Hct MCV MCH MCHC RDW Plt Count Lymph % (Auto) [place] % (Auto) Lymph # [place] # Seg Neutrophils % Seg Neuts % (Manual) Lymphocytes % (Manual) Monocytes % (Manual) Seg Neutrophils # Seg Neutrophils # Man Lymphocytes # (Manual) Monocytes # (Manual) Fibrinogen dRVVT Confirm Interp Factor V Activity POC ABG pH POC ABG pCO2 POC ABG pO2 Sodium Potassium Chloride Carbon Dioxide 20 L BUN 116 H Creatinine 3.0 H Glucose 172 H POC Glucose 140 H 183 H Calcium Phosphorus Magnesium C-Reactive Protein Total Protein 6.2 L Albumin 2.9 L Triglycerides HDL Cholesterol Urine WBC (Auto) Urine Creatinine Urine Total Protein Vancomycin Trough Rheumatoid Factor Complement C4 Crossmatch 09/13/16 09/14/16 09/14/16 23:23 04:06 04:07 WBC 29.4 H RBC Hgb 8.9 L Hct 27.3 L MCV 75 L MCH 24 L MCHC RDW 19.1 H Plt Count Lymph % (Auto) [place] % (Auto) Lymph # [place] # Seg Neutrophils % Seg Neuts % (Manual) 84.0 H Lymphocytes % (Manual) 6.0 L Monocytes % (Manual) 9.0 H Seg Neutrophils # Seg Neutrophils # Man 24.7 H Lymphocytes # (Manual) Monocytes # (Manual) 2.6 H Fibrinogen dRVVT Confirm Interp Factor V Activity POC ABG pH 7.342 L POC ABG pCO2 POC ABG pO2 116 H Sodium Potassium Chloride Carbon Dioxide BUN Creatinine Glucose POC Glucose 154 H Calcium Phosphorus Magnesium C-Reactive Protein Total Protein Albumin Triglycerides HDL Cholesterol Urine WBC (Auto) Urine Creatinine Urine Total Protein Vancomycin Trough Rheumatoid Factor Complement C4 Crossmatch 09/14/16 09/14/16 09/14/16 04:07 05:29 12:19 WBC RBC Hgb Hct MCV MCH MCHC RDW Plt Count Lymph % (Auto) [place] % (Auto) Lymph # [place] # Seg Neutrophils % Seg Neuts % (Manual) Lymphocytes % (Manual) Monocytes % (Manual) Seg Neutrophils # Seg Neutrophils # Man Lymphocytes # (Manual) Monocytes # (Manual) Fibrinogen dRVVT Confirm Interp Factor V Activity POC ABG pH POC ABG pCO2 POC ABG pO2 Sodium 136 L Potassium Chloride Carbon Dioxide 18 L BUN 121 H Creatinine 2.8 H Glucose 214 H POC Glucose 239 H 181 H Calcium Phosphorus Magnesium C-Reactive Protein Total Protein Albumin Triglycerides HDL Cholesterol Urine WBC (Auto) Urine Creatinine Urine Total Protein Vancomycin Trough Rheumatoid Factor Complement C4 Crossmatch 09/14/16 09/14/16 09/15/16 18:12 23:37 05:00 WBC 26.1 H RBC 3.05 L Hgb 7.2 L Hct 22.9 L MCV 75 L MCH 24 L MCHC RDW 19.0 H Plt Count Lymph % (Auto) [place] % (Auto) Lymph # [place] # Seg Neutrophils % Seg Neuts % (Manual) Lymphocytes % (Manual) Monocytes % (Manual) Seg Neutrophils # Seg Neutrophils # Man Lymphocytes # (Manual) Monocytes # (Manual) Fibrinogen dRVVT Confirm Interp Factor V Activity POC ABG pH POC ABG pCO2 POC ABG pO2 Sodium Potassium Chloride Carbon Dioxide BUN Creatinine Glucose POC Glucose 266 H 154 H Calcium Phosphorus Magnesium C-Reactive Protein Total Protein Albumin Triglycerides HDL Cholesterol Urine WBC (Auto) Urine Creatinine Urine Total Protein Vancomycin Trough Rheumatoid Factor Complement C4 Crossmatch 09/15/16 09/15/16 09/15/16 05:00 05:17 12:45 WBC RBC Hgb Hct MCV MCH MCHC RDW Plt Count Lymph % (Auto) [place] % (Auto) Lymph # [place] # Seg Neutrophils % Seg Neuts % (Manual) Lymphocytes % (Manual) Monocytes % (Manual) Seg Neutrophils # Seg Neutrophils # Man Lymphocytes # (Manual) Monocytes # (Manual) Fibrinogen dRVVT Confirm Interp Factor V Activity POC ABG pH POC ABG pCO2 POC ABG pO2 Sodium Potassium 5.2 H Chloride Carbon Dioxide 18 L BUN 139 H Creatinine 3.7 H Glucose 227 H POC Glucose 226 H 244 H Calcium 8.3 L Phosphorus Magnesium C-Reactive Protein Total Protein Albumin Triglycerides HDL Cholesterol Urine WBC (Auto) Urine Creatinine Urine Total Protein Vancomycin Trough Rheumatoid Factor Complement C4 Crossmatch 09/15/16 09/15/16 09/15/16 14:32 17:33 23:35 WBC RBC Hgb Hct MCV MCH MCHC RDW Plt Count Lymph % (Auto) [place] % (Auto) Lymph # [place] # Seg Neutrophils % Seg Neuts % (Manual) Lymphocytes % (Manual) Monocytes % (Manual) Seg Neutrophils # Seg Neutrophils # Man Lymphocytes # (Manual) Monocytes # (Manual) Fibrinogen dRVVT Confirm Interp Factor V Activity POC ABG pH POC ABG pCO2 27.7 L POC ABG pO2 120 H Sodium Potassium Chloride Carbon Dioxide BUN Creatinine Glucose POC Glucose 232 H 167 H Calcium Phosphorus Magnesium C-Reactive Protein Total Protein Albumin Triglycerides HDL Cholesterol Urine WBC (Auto) Urine Creatinine Urine Total Protein Vancomycin Trough Rheumatoid Factor Complement C4 Crossmatch 09/16/16 09/16/16 09/16/16 03:58 10:27 10:27 WBC 19.0 H RBC 2.77 L Hgb 6.5 L Hct 20.9 L MCV 76 L MCH 23 L MCHC RDW 19.3 H Plt Count Lymph % (Auto) 11.0 L [place] % (Auto) Lymph # [place] # 1.1 H Seg Neutrophils % 82.5 H Seg Neuts % (Manual) Lymphocytes % (Manual) Monocytes % (Manual) Seg Neutrophils # 15.7 H Seg Neutrophils # Man Lymphocytes # (Manual) Monocytes # (Manual) Fibrinogen dRVVT Confirm Interp Factor V Activity POC ABG pH POC ABG pCO2 POC ABG pO2 Sodium Potassium Chloride 109.3 H Carbon Dioxide 18 L BUN 139 H Creatinine 4.1 H Glucose 144 H POC Glucose 146 H Calcium 8.1 L Phosphorus Magnesium C-Reactive Protein Total Protein Albumin Triglycerides HDL Cholesterol Urine WBC (Auto) Urine Creatinine Urine Total Protein Vancomycin Trough Rheumatoid Factor Complement C4 Crossmatch 09/16/16 09/16/16 09/16/16 12:04 12:10 13:55 WBC RBC Hgb Hct MCV MCH MCHC RDW Plt Count Lymph % (Auto) [place] % (Auto) Lymph # [place] # Seg Neutrophils % Seg Neuts % (Manual) Lymphocytes % (Manual) Monocytes % (Manual) Seg Neutrophils # Seg Neutrophils # Man Lymphocytes # (Manual) Monocytes # (Manual) Fibrinogen dRVVT Confirm Interp Factor V Activity POC ABG pH POC ABG pCO2 32.9 L POC ABG pO2 Sodium Potassium Chloride Carbon Dioxide BUN Creatinine Glucose POC Glucose 185 H Calcium Phosphorus Magnesium C-Reactive Protein Total Protein Albumin Triglycerides HDL Cholesterol Urine WBC (Auto) Urine Creatinine Urine Total Protein Vancomycin Trough Rheumatoid Factor Complement C4 Crossmatch See Detail 09/16/16 09/16/16 09/16/16 17:55 19:19 23:48 WBC RBC Hgb Hct MCV MCH MCHC RDW Plt Count Lymph % (Auto) [place] % (Auto) Lymph # [place] # Seg Neutrophils % Seg Neuts % (Manual) Lymphocytes % (Manual) Monocytes % (Manual) Seg Neutrophils # Seg Neutrophils # Man Lymphocytes # (Manual) Monocytes # (Manual) Fibrinogen dRVVT Confirm Interp Factor V Activity POC ABG pH POC ABG pCO2 POC ABG pO2 Sodium Potassium Chloride Carbon Dioxide BUN Creatinine Glucose POC Glucose 222 H 107 H Calcium Phosphorus Magnesium C-Reactive Protein Total Protein Albumin Triglycerides HDL Cholesterol Urine WBC (Auto) Urine Creatinine 47.4 H Urine Total Protein 16 H Vancomycin Trough Rheumatoid Factor Complement C4 Crossmatch 09/17/16 09/17/16 09/17/16 03:45 03:45 04:55 WBC 19.6 H RBC 3.41 L Hgb 8.5 L Hct 26.7 L MCV 78 L MCH 25 L MCHC RDW 19.9 H Plt Count Lymph % (Auto) 9.3 L [place] % (Auto) Lymph # [place] # 1.2 H Seg Neutrophils % 83.9 H Seg Neuts % (Manual) Lymphocytes % (Manual) Monocytes % (Manual) Seg Neutrophils # 16.4 H Seg Neutrophils # Man Lymphocytes # (Manual) Monocytes # (Manual) Fibrinogen dRVVT Confirm Interp Factor V Activity POC ABG pH POC ABG pCO2 POC ABG pO2 Sodium 146 H Potassium 5.1 H Chloride 110.9 H Carbon Dioxide 16 L BUN 146 H Creatinine 4.0 H Glucose 108 H POC Glucose 133 H Calcium Phosphorus Magnesium 3.00 H C-Reactive Protein Total Protein Albumin Triglycerides HDL Cholesterol Urine WBC (Auto) Urine Creatinine Urine Total Protein Vancomycin Trough Rheumatoid Factor Complement C4 Crossmatch 09/17/16 09/17/16 09/17/16 11:15 17:33 23:47 WBC RBC Hgb Hct MCV MCH MCHC RDW Plt Count Lymph % (Auto) [place] % (Auto) Lymph # [place] # Seg Neutrophils % Seg Neuts % (Manual) Lymphocytes % (Manual) Monocytes % (Manual) Seg Neutrophils # Seg Neutrophils # Man Lymphocytes # (Manual) Monocytes # (Manual) Fibrinogen dRVVT Confirm Interp Factor V Activity POC ABG pH POC ABG pCO2 POC ABG pO2 Sodium Potassium Chloride Carbon Dioxide BUN Creatinine Glucose POC Glucose 176 H 246 H 148 H Calcium Phosphorus Magnesium C-Reactive Protein Total Protein Albumin Triglycerides HDL Cholesterol Urine WBC (Auto) Urine Creatinine Urine Total Protein Vancomycin Trough Rheumatoid Factor Complement C4 Crossmatch 09/18/16 09/18/16 09/18/16 05:33 08:31 08:31 WBC 18.0 H RBC 3.17 L Hgb 9.0 L Hct 25.7 L MCV MCH MCHC 35 H RDW 20.4 H Plt Count Lymph % (Auto) [place] % (Auto) Lymph # [place] # Seg Neutrophils % Seg Neuts % (Manual) Lymphocytes % (Manual) Monocytes % (Manual) Seg Neutrophils # Seg Neutrophils # Man Lymphocytes # (Manual) Monocytes # (Manual) Fibrinogen dRVVT Confirm Interp Factor V Activity POC ABG pH POC ABG pCO2 POC ABG pO2 Sodium Potassium Chloride Carbon Dioxide 15 L BUN 124 H Creatinine 3.8 H Glucose POC Glucose 120 H Calcium 8.1 L Phosphorus Magnesium C-Reactive Protein Total Protein Albumin Triglycerides HDL Cholesterol Urine WBC (Auto) Urine Creatinine Urine Total Protein Vancomycin Trough Rheumatoid Factor Complement C4 Crossmatch 09/18/16 09/18/16 09/18/16 12:03 15:34 17:50 WBC RBC Hgb Hct MCV MCH MCHC RDW Plt Count Lymph % (Auto) [place] % (Auto) Lymph # [place] # Seg Neutrophils % Seg Neuts % (Manual) Lymphocytes % (Manual) Monocytes % (Manual) Seg Neutrophils # Seg Neutrophils # Man Lymphocytes # (Manual) Monocytes # (Manual) Fibrinogen dRVVT Confirm Interp Factor V Activity POC ABG pH POC ABG pCO2 25.7 L POC ABG pO2 66 L Sodium Potassium Chloride Carbon Dioxide BUN Creatinine Glucose POC Glucose 156 H 220 H Calcium Phosphorus Magnesium C-Reactive Protein Total Protein Albumin Triglycerides HDL Cholesterol Urine WBC (Auto) Urine Creatinine Urine Total Protein Vancomycin Trough Rheumatoid Factor Complement C4 Crossmatch 09/19/16 09/19/16 09/19/16 06:21 09:50 09:50 WBC 17.1 H RBC 3.49 L Hgb 9.0 L Hct 28.1 L MCV MCH 26 L MCHC RDW 20.8 H Plt Count Lymph % (Auto) 11.5 L [place] % (Auto) 7.5 H Lymph # [place] # 1.3 H Seg Neutrophils % 79.8 H Seg Neuts % (Manual) Lymphocytes % (Manual) Monocytes % (Manual) Seg Neutrophils # 13.7 H Seg Neutrophils # Man Lymphocytes # (Manual) Monocytes # (Manual) Fibrinogen dRVVT Confirm Interp Factor V Activity POC ABG pH POC ABG pCO2 POC ABG pO2 Sodium Potassium Chloride 108.6 H Carbon Dioxide 15 L BUN 125 H Creatinine 4.1 H Glucose 124 H POC Glucose 119 H Calcium Phosphorus Magnesium C-Reactive Protein Total Protein Albumin Triglycerides HDL Cholesterol Urine WBC (Auto) Urine Creatinine Urine Total Protein Vancomycin Trough Rheumatoid Factor Complement C4 Crossmatch 09/19/16 09/19/16 09/19/16 11:25 17:53 23:36 WBC RBC Hgb Hct MCV MCH MCHC RDW Plt Count Lymph % (Auto) [place] % (Auto) Lymph # [place] # Seg Neutrophils % Seg Neuts % (Manual) Lymphocytes % (Manual) Monocytes % (Manual) Seg Neutrophils # Seg Neutrophils # Man Lymphocytes # (Manual) Monocytes # (Manual) Fibrinogen dRVVT Confirm Interp Factor V Activity POC ABG pH POC ABG pCO2 POC ABG pO2 Sodium Potassium Chloride Carbon Dioxide BUN Creatinine Glucose POC Glucose 160 H 245 H 121 H Calcium Phosphorus Magnesium C-Reactive Protein Total Protein Albumin Triglycerides HDL Cholesterol Urine WBC (Auto) Urine Creatinine Urine Total Protein Vancomycin Trough Rheumatoid Factor Complement C4 Crossmatch 09/20/16 09/20/16 09/20/16 04:10 04:10 04:10 WBC 17.0 H RBC 3.21 L Hgb 8.2 L Hct 25.5 L MCV MCH 26 L MCHC RDW 20.9 H Plt Count Lymph % (Auto) [place] % (Auto) Lymph # [place] # Seg Neutrophils % Seg Neuts % (Manual) Lymphocytes % (Manual) Monocytes % (Manual) Seg Neutrophils # Seg Neutrophils # Man Lymphocytes # (Manual) Monocytes # (Manual) Fibrinogen dRVVT Confirm Interp Factor V Activity POC ABG pH POC ABG pCO2 POC ABG pO2 Sodium Potassium Chloride 111.0 H Carbon Dioxide 16 L BUN 129 H Creatinine 3.7 H Glucose 115 H POC Glucose Calcium 8.2 L Phosphorus Magnesium C-Reactive Protein Total Protein Albumin Triglycerides 243 H HDL Cholesterol Urine WBC (Auto) Urine Creatinine Urine Total Protein Vancomycin Trough Rheumatoid Factor Complement C4 Crossmatch 09/20/16 09/20/16 09/20/16 05:40 11:52 16:50 WBC RBC Hgb Hct MCV MCH MCHC RDW Plt Count Lymph % (Auto) [place] % (Auto) Lymph # [place] # Seg Neutrophils % Seg Neuts % (Manual) Lymphocytes % (Manual) Monocytes % (Manual) Seg Neutrophils # Seg Neutrophils # Man Lymphocytes # (Manual) Monocytes # (Manual) Fibrinogen dRVVT Confirm Interp Factor V Activity POC ABG pH POC ABG pCO2 POC ABG pO2 Sodium Potassium Chloride Carbon Dioxide BUN Creatinine Glucose POC Glucose 131 H 183 H 236 H Calcium Phosphorus Magnesium C-Reactive Protein Total Protein Albumin Triglycerides HDL Cholesterol Urine WBC (Auto) Urine Creatinine Urine Total Protein Vancomycin Trough Rheumatoid Factor Complement C4 Crossmatch 09/20/16 09/21/16 09/21/16 23:51 03:30 04:44 WBC RBC Hgb Hct MCV MCH MCHC RDW Plt Count Lymph % (Auto) [place] % (Auto) Lymph # [place] # Seg Neutrophils % Seg Neuts % (Manual) Lymphocytes % (Manual) Monocytes % (Manual) Seg Neutrophils # Seg Neutrophils # Man Lymphocytes # (Manual) Monocytes # (Manual) Fibrinogen dRVVT Confirm Interp Factor V Activity POC ABG pH POC ABG pCO2 POC ABG pO2 Sodium Potassium Chloride Carbon Dioxide BUN Creatinine Glucose POC Glucose 114 H 141 H Calcium Phosphorus Magnesium 2.70 H C-Reactive Protein Total Protein Albumin Triglycerides HDL Cholesterol Urine WBC (Auto) Urine Creatinine Urine Total Protein Vancomycin Trough Rheumatoid Factor Complement C4 Crossmatch 09/21/16 09/21/16 09/21/16 07:45 07:45 10:01 WBC 13.8 H RBC 2.94 L Hgb 7.5 L Hct 23.5 L MCV MCH 26 L MCHC RDW 21.2 H Plt Count Lymph % (Auto) 6.9 L [place] % (Auto) 9.4 H Lymph # 0.9 L [place] # 1.3 H Seg Neutrophils % 83.2 H Seg Neuts % (Manual) Lymphocytes % (Manual) Monocytes % (Manual) Seg Neutrophils # 11.5 H Seg Neutrophils # Man Lymphocytes # (Manual) Monocytes # (Manual) Fibrinogen dRVVT Confirm Interp Factor V Activity POC ABG pH 7.308 L POC ABG pCO2 31.9 L POC ABG pO2 148 H Sodium 147 H Potassium Chloride 114.2 H Carbon Dioxide 15 L BUN 120 H Creatinine 3.9 H Glucose 156 H POC Glucose Calcium 8.2 L Phosphorus Magnesium C-Reactive Protein Total Protein Albumin Triglycerides HDL Cholesterol Urine WBC (Auto) Urine Creatinine Urine Total Protein Vancomycin Trough Rheumatoid Factor Complement C4 Crossmatch 09/21/16 09/21/16 09/21/16 12:00 12:03 13:00 WBC RBC Hgb Hct MCV MCH MCHC RDW Plt Count Lymph % (Auto) [place] % (Auto) Lymph # [place] # Seg Neutrophils % Seg Neuts % (Manual) Lymphocytes % (Manual) Monocytes % (Manual) Seg Neutrophils # Seg Neutrophils # Man Lymphocytes # (Manual) Monocytes # (Manual) Fibrinogen dRVVT Confirm Interp Factor V Activity POC ABG pH POC ABG pCO2 POC ABG pO2 Sodium Potassium Chloride Carbon Dioxide BUN Creatinine Glucose POC Glucose 163 H Calcium Phosphorus Magnesium C-Reactive Protein Total Protein Albumin Triglycerides HDL Cholesterol Urine WBC (Auto) Urine Creatinine 54.8 H Urine Total Protein Vancomycin Trough 2.3 L Rheumatoid Factor Complement C4 Crossmatch 09/21/16 09/21/16 09/22/16 16:51 23:17 06:27 WBC RBC Hgb Hct MCV MCH MCHC RDW Plt Count Lymph % (Auto) [place] % (Auto) Lymph # [place] # Seg Neutrophils % Seg Neuts % (Manual) Lymphocytes % (Manual) Monocytes % (Manual) Seg Neutrophils # Seg Neutrophils # Man Lymphocytes # (Manual) Monocytes # (Manual) Fibrinogen dRVVT Confirm Interp Factor V Activity POC ABG pH POC ABG pCO2 POC ABG pO2 Sodium Potassium Chloride Carbon Dioxide BUN Creatinine Glucose POC Glucose 206 H 114 H 115 H Calcium Phosphorus Magnesium C-Reactive Protein Total Protein Albumin Triglycerides HDL Cholesterol Urine WBC (Auto) Urine Creatinine Urine Total Protein Vancomycin Trough Rheumatoid Factor Complement C4 Crossmatch 09/22/16 09/22/16 09/22/16 07:50 07:50 12:00 WBC 17.8 H RBC 3.04 L Hgb 8.0 L Hct 24.7 L MCV MCH 26 L MCHC RDW 21.6 H Plt Count Lymph % (Auto) [place] % (Auto) Lymph # [place] # Seg Neutrophils % Seg Neuts % (Manual) Lymphocytes % (Manual) Monocytes % (Manual) Seg Neutrophils # Seg Neutrophils # Man Lymphocytes # (Manual) Monocytes # (Manual) Fibrinogen dRVVT Confirm Interp Factor V Activity POC ABG pH POC ABG pCO2 POC ABG pO2 Sodium 150 H Potassium Chloride 118.2 H Carbon Dioxide 14 L BUN 111 H Creatinine 3.7 H Glucose 157 H POC Glucose 183 H Calcium Phosphorus Magnesium C-Reactive Protein Total Protein Albumin Triglycerides HDL Cholesterol Urine WBC (Auto) Urine Creatinine Urine Total Protein Vancomycin Trough Rheumatoid Factor Complement C4 Crossmatch 09/22/16 09/22/16 09/23/16 17:29 23:10 05:00 WBC 19.2 H RBC 3.13 L Hgb 8.0 L Hct 25.2 L MCV MCH 26 L MCHC RDW 22.1 H Plt Count Lymph % (Auto) [place] % (Auto) Lymph # [place] # Seg Neutrophils % Seg Neuts % (Manual) 92.0 H Lymphocytes % (Manual) 3.0 L Monocytes % (Manual) Seg Neutrophils # Seg Neutrophils # Man 17.7 H Lymphocytes # (Manual) 0.6 L Monocytes # (Manual) Fibrinogen dRVVT Confirm Interp Factor V Activity POC ABG pH POC ABG pCO2 POC ABG pO2 Sodium Potassium Chloride Carbon Dioxide BUN Creatinine Glucose POC Glucose 197 H 169 H Calcium Phosphorus Magnesium C-Reactive Protein Total Protein Albumin Triglycerides HDL Cholesterol Urine WBC (Auto) Urine Creatinine Urine Total Protein Vancomycin Trough Rheumatoid Factor Complement C4 Crossmatch 09/23/16 09/23/16 09/23/16 05:00 05:00 05:10 WBC RBC Hgb Hct MCV MCH MCHC RDW Plt Count Lymph % (Auto) [place] % (Auto) Lymph # [place] # Seg Neutrophils % Seg Neuts % (Manual) Lymphocytes % (Manual) Monocytes % (Manual) Seg Neutrophils # Seg Neutrophils # Man Lymphocytes # (Manual) Monocytes # (Manual) Fibrinogen dRVVT Confirm Interp Factor V Activity POC ABG pH POC ABG pCO2 POC ABG pO2 Sodium 147 H Potassium 3.2 L Chloride 115.7 H Carbon Dioxide 13 L BUN 111 H Creatinine 3.8 H Glucose 194 H POC Glucose 188 H Calcium 7.3 L D Phosphorus Magnesium C-Reactive Protein 3.20 H Total Protein Albumin Triglycerides HDL Cholesterol Urine WBC (Auto) Urine Creatinine Urine Total Protein Vancomycin Trough Rheumatoid Factor Complement C4 Crossmatch 09/23/16 09/23/16 09/23/16 11:37 12:29 18:01 WBC RBC Hgb Hct MCV MCH MCHC RDW Plt Count Lymph % (Auto) [place] % (Auto) Lymph # [place] # Seg Neutrophils % Seg Neuts % (Manual) Lymphocytes % (Manual) Monocytes % (Manual) Seg Neutrophils # Seg Neutrophils # Man Lymphocytes # (Manual) Monocytes # (Manual) Fibrinogen dRVVT Confirm Interp Factor V Activity POC ABG pH POC ABG pCO2 18.9 L POC ABG pO2 143 H Sodium Potassium Chloride Carbon Dioxide BUN Creatinine Glucose POC Glucose 153 H 108 H Calcium Phosphorus Magnesium C-Reactive Protein Total Protein Albumin Triglycerides HDL Cholesterol Urine WBC (Auto) Urine Creatinine Urine Total Protein Vancomycin Trough Rheumatoid Factor Complement C4 Crossmatch 09/23/16 09/23/16 09/24/16 21:19 23:43 05:16 WBC RBC Hgb Hct MCV MCH MCHC RDW Plt Count Lymph % (Auto) [place] % (Auto) Lymph # [place] # Seg Neutrophils % Seg Neuts % (Manual) Lymphocytes % (Manual) Monocytes % (Manual) Seg Neutrophils # Seg Neutrophils # Man Lymphocytes # (Manual) Monocytes # (Manual) Fibrinogen dRVVT Confirm Interp Factor V Activity POC ABG pH POC ABG pCO2 17.3 L POC ABG pO2 112 H Sodium Potassium Chloride Carbon Dioxide BUN Creatinine Glucose POC Glucose 143 H 164 H Calcium Phosphorus Magnesium C-Reactive Protein Total Protein Albumin Triglycerides HDL Cholesterol Urine WBC (Auto) Urine Creatinine Urine Total Protein Vancomycin Trough Rheumatoid Factor Complement C4 Crossmatch 09/24/16 09/24/16 05:21 11:58 WBC RBC Hgb Hct MCV MCH MCHC RDW Plt Count Lymph % (Auto) [place] % (Auto) Lymph # [place] # Seg Neutrophils % Seg Neuts % (Manual) Lymphocytes % (Manual) Monocytes % (Manual) Seg Neutrophils # Seg Neutrophils # Man Lymphocytes # (Manual) Monocytes # (Manual) Fibrinogen dRVVT Confirm Interp Factor V Activity POC ABG pH POC ABG pCO2 POC ABG pO2 Sodium Potassium Chloride Carbon Dioxide 10 L BUN 103 H Creatinine 4.3 H Glucose 163 H POC Glucose 173 H Calcium 6.5 L Phosphorus Magnesium C-Reactive Protein Total Protein Albumin Triglycerides HDL Cholesterol Urine WBC (Auto) Urine Creatinine Urine Total Protein Vancomycin Trough Rheumatoid Factor Complement C4 Crossmatch Allied health notes reviewed: RT
--- NOTE | 2016-09-24 13:16 | Progress Note ---
Assessment and Plan Assessment * Oliguric acute kidney injury on CKD , most likely secondary to ATN- baseline SCr 1.7mg/dL * Acute CVA - left MCA with midline shift * Acute hypoxic respiratory failure * Accelerated hypertension * Left renal artery stenosis * Metabolic acidosis w/ respiratory compensation * Hypernatremia - Plan: * Patient serum creatinine is rising and she is also oliguric . Patient is getting more acidotic as well. Need to initiate renal replacement therapy. Discussed with her brother at length regarding her condition. She is currently on multiple pressors . However family wishes to pursue aggressive therapy at this time. * Discussed with vascular surgery for Vas-Cath placement * Shall initiate dialysis after access * Continue intravenous bicarbonate drip as well as oral NaBicarb 1300mg TID through feeding tube * Vent management per critical care * Dose medications for renal function * Avoid potential nephrotoxins Subjective Date of service: 09/24/16 Principal diagnosis: Acute resp failure on MVS; S/P Acute CVA; Acute Encephalopathy Interval history: Patient remains on the ventilator. Unresponsive. Currently on 3 pressors as well as amiodarone drip. Objective - Vital Signs Vital signs: Vital Signs - 12hr 09/24/16 09/24/16 09/24/16 01:16 01:30 01:46 Temperature Pulse Rate 126 H 126 H 127 H Pulse Rate [ From Monitor] Respiratory 41 H 49 H 50 H Rate Blood Pressure 93/63 98/48 96/42 O2 Sat by Pulse 99 99 99 Oximetry 09/24/16 09/24/16 09/24/16 02:00 02:16 02:30 Temperature Pulse Rate 126 H 126 H 126 H Pulse Rate [ From Monitor] Respiratory 48 H 46 H 47 H Rate Blood Pressure 103/49 100/52 103/39 O2 Sat by Pulse 97 99 98 Oximetry 09/24/16 09/24/16 09/24/16 02:46 03:00 03:16 Temperature Pulse Rate 126 H 125 H 125 H Pulse Rate [ From Monitor] Respiratory 46 H 45 H 47 H Rate Blood Pressure 89/44 101/31 81/29 O2 Sat by Pulse 99 97 93 Oximetry 09/24/16 09/24/16 09/24/16 03:30 03:46 03:51 Temperature Pulse Rate 125 H 124 H 124 H Pulse Rate [ From Monitor] Respiratory 47 H 43 H Rate Blood Pressure 94/57 90/52 90/52 O2 Sat by Pulse 98 98 98 Oximetry 09/24/16 09/24/16 09/24/16 04:00 04:16 04:30 Temperature 102.4 F H Pulse Rate 123 H 122 H 120 H Pulse Rate [ 123 H From Monitor] Respiratory 42 H 39 H 29 H Rate Blood Pressure 104/46 82/49 97/23 O2 Sat by Pulse 96 98 Oximetry 09/24/16 09/24/16 09/24/16 04:46 05:00 05:16 Temperature Pulse Rate 121 H 118 H 113 H Pulse Rate [ From Monitor] Respiratory 36 H 30 H 26 H Rate Blood Pressure 104/46 79/42 69/26 O2 Sat by Pulse 97 95 96 Oximetry 09/24/16 09/24/16 09/24/16 05:30 05:45 06:00 Temperature Pulse Rate 114 H 115 H 116 H Pulse Rate [ From Monitor] Respiratory 38 H 42 H 29 H Rate Blood Pressure 93/47 75/36 95/63 O2 Sat by Pulse 95 94 94 Oximetry 09/24/16 09/24/16 09/24/16 06:15 06:30 06:46 Temperature Pulse Rate 114 H 114 H 114 H Pulse Rate [ From Monitor] Respiratory 24 42 H 51 H Rate Blood Pressure 97/73 104/62 140/79 O2 Sat by Pulse 94 93 95 Oximetry 09/24/16 09/24/16 09/24/16 07:00 07:16 07:30 Temperature Pulse Rate 115 H 115 H 116 H Pulse Rate [ From Monitor] Respiratory 52 H 52 H Rate Blood Pressure 167/138 141/120 141/120 O2 Sat by Pulse 96 95 Oximetry 09/24/16 09/24/16 09/24/16 07:42 07:46 08:00 Temperature 100.0 F H Pulse Rate 116 H 116 H 117 H Pulse Rate [ 115 H From Monitor] Respiratory 43 H 44 H Rate Blood Pressure 106/41 116/61 86/67 O2 Sat by Pulse Oximetry 09/24/16 09/24/16 09/24/16 08:16 08:30 08:46 Temperature Pulse Rate 118 H 119 H 120 H Pulse Rate [ From Monitor] Respiratory 43 H 43 H 44 H Rate Blood Pressure 78/53 83/47 75/51 O2 Sat by Pulse Oximetry 09/24/16 09/24/16 09/24/16 09:00 09:16 09:30 Temperature Pulse Rate 122 H 124 H 125 H Pulse Rate [ From Monitor] Respiratory 45 H 44 H 44 H Rate Blood Pressure 75/40 91/46 101/51 O2 Sat by Pulse Oximetry 09/24/16 09/24/16 09/24/16 09:45 10:00 10:15 Temperature Pulse Rate 124 H 124 H 124 H Pulse Rate [ From Monitor] Respiratory 42 H 38 H 37 H Rate Blood Pressure 97/52 93/55 114/48 O2 Sat by Pulse Oximetry 09/24/16 09/24/16 09/24/16 10:30 10:45 11:00 Temperature Pulse Rate 123 H 122 H 124 H Pulse Rate [ From Monitor] Respiratory 41 H 36 H 32 H Rate Blood Pressure 114/48 107/45 109/49 O2 Sat by Pulse Oximetry 09/24/16 09/24/16 09/24/16 11:15 11:30 11:45 Temperature Pulse Rate 124 H 125 H 125 H Pulse Rate [ From Monitor] Respiratory 34 H 35 H Rate Blood Pressure 99/49 89/59 89/59 O2 Sat by Pulse Oximetry 09/24/16 09/24/16 09/24/16 11:46 12:00 12:16 Temperature 101.4 F H Pulse Rate 125 H 126 H 124 H Pulse Rate [ 125 H From Monitor] Respiratory 33 H 32 H 31 H Rate Blood Pressure 101/49 107/60 107/47 O2 Sat by Pulse Oximetry 09/24/16 12:30 Temperature Pulse Rate 125 H Pulse Rate [ From Monitor] Respiratory 29 H Rate Blood Pressure 113/44 O2 Sat by Pulse Oximetry - General Appearance General appearance: well-developed, well-nourished, appears stated age, intubated EENT: PERRL, mucous membranes moist Neck: no JVD, no thyromegaly, no carotid bruit, supple Respiratory: Present: Ronchi (bilateral scattered rhonchi) Cardiology: regular, normal heart rate, S1S2, no murmurs Gastrointestinal: normal, normoactive bowel sounds Integumentary: no rash, other (1+ edema) - Lab 09/23/16 05:00 09/24/16 05:21 Most recent lab results Calcium 6.5 mg/dL (8.4-10.2) L 09/24/16 05:21 Phosphorus 4.30 mg/dL (2.5-4.5) D 09/08/16 06:18 Magnesium 2.70 mg/dL (1.7-2.3) H 09/21/16 03:30 Urine Creatinine 54.8 mg/dL (0.1-20.0) H 09/21/16 12:00 Urine Sodium 36 mEq/L 09/16/16 19:19 Urine Total Protein 16 mg/dL (5-11.8) H 09/16/16 19:19
[2016-09-24] MEDS ORDERED: NACL 0.9% 100 ML IV PRN (13:17)
[2016-09-24] MEDS: TOBRAMYCIN INHALATION (ADULT) IH SCH (13:31)
--- NOTE | 2016-09-24 13:33 | Operative Report ---
Operative Report Operative Report: EXAM: ULTRASOUND GUIDED PLACEMENT OF VAS-CATH CLINICAL INDICATION: PATIENT WITH ACUTE RENAL FAILURE REQUIRING EMERGENT DIALYSIS DATE: 09/24/2016 PROCEDURE: Following an explanation of the risks, benefits and alternatives; written informed consent was obtained from the patient's next of kin. The procedure was performed at bedside in the ICU. The patient's left groin was evaluated with ultrasound in the left common femoral vein is identified as an appropriate access site. The patient's left groin was prepped and draped in the usual sterile fashion. 1% lidocaine was used for anesthesia. Under ultrasound guidance, the left common femoral vein was cannulated with a 7 cm 18-gauge needle. A 0.035 guidewire was advanced centrally easily. The needle was removed. Following serial dilation, a 30 cm dialysis catheter was placed over the guidewire and advanced centrally. The guidewire was removed. Nonpulsatile blood return from all 3 ports. The catheter was flushed with sterile saline and sterile Placed. The Catheter Was Securely Fastened of the Skin Surface Using 3-0 Nylon Suture and a Sterile Dressing Applied. The patient tolerated the procedure well. There were no immediate post procedure complications. IMPRESSION: 1) Ultrasound guided placement of vas cath via the left common femoral vein.
[2016-09-24] MEDS: HEPARIN IV PRN (16:48)
--- NOTE | 2016-09-24 17:34 | Progress Note ---
Assessment and Plan - Patient Problems (1) Sepsis Current Visit: Yes Status: Acute Qualifiers: Sepsis type: sepsis due to unspecified organism Qualified Code(s): A41.9 - Sepsis, unspecified organism Plan to address problem: Unclear etiology. Still concerned about an intra-abdominal source of infection. Continue presumptive Cdiff treatment. Blood cultures were sent yesterday. In progress. Zosyn and inhaled Tobramycin started yesterday. Will add Vancomycin x 1 dose. Abdominal xray as patient is too unstable for CT scan. Will discontinue Tobramycin. (2) Chronic renal insufficiency Current Visit: Yes Status: Acute Qualifiers: Chronic kidney disease stage: C Plan to address problem: Antibiotics are renally adjusted. Subjective Date of service: 09/24/16 Principal diagnosis: Acute resp failure on MVS; S/P Acute CVA; Acute Encephalopathy Interval history: Patient remains critically ill in ICU. Now on 3 pressor agents. Febrile to > 102 deg F. Blood cultures sent yesterday. Inhaled Tobramycin and Zosyn started empirically. Vascath placed today. No localizing infectious issue. Objective - Constitutional Vitals: Vital Signs Temp Pulse Resp BP Pulse Ox 100.2 F H 137 H 35 H 111/66 96 09/24/16 16:00 09/24/16 17:16 09/24/16 17:16 09/24/16 17:16 09/24/16 17:00 Temperature -Last 24 Hours Temperature 100.2 F Temperature 100.2 F Temperature 99.7 F Temperature 101.4 F Temperature 100.0 F Temperature 102.4 F Temperature 99.4 F Temperature 101.9 F General appearance: Present: severe distress, other (tachycardic, tachypneic, FiO2 30%) - EENT Eyes: no scleral icterus - Neck Neck: supple, other (tracehostomy in place) - Respiratory Respiratory effort: accessory muscle use Respiratory: bilateral: CTA, negative: rhonchi - Cardiovascular Rhythm: regular (rate in 130s) Extremity abnormal: edema (trace edema) - Gastrointestinal General gastrointestinal: Present: soft, non-distended, hypoactive bowel sounds , other ((+) PEG without surrounding inflammation) Rectal Exam: other (rectal tube with liquid, brown stool) - Genitourinary Female genitourinary: other ([place] with yellow urine) - Integumentary Integumentary: clear, no rash - Additional findings Additional findings: PICC left arm without signs of infection - Labs CBC & Chem 7: 09/23/16 05:00 09/24/16 05:21 Labs: Abnormal lab results 09/23/16 09/23/16 09/23/16 Range/Units 18:01 21:19 23:43 POC ABG pCO2 17.3 L (35-45) POC ABG pO2 112 H (80-105) Carbon Dioxide (22-30) mmol/L BUN (7-17) mg/dL Creatinine (0.7-1.2) mg/dL Glucose (65-100) mg/dL POC Glucose 108 H 143 H (70-105) Calcium (8.4-10.2) mg/dL 09/24/16 09/24/16 09/24/16 Range/Units 05:16 05:21 11:58 POC ABG pCO2 (35-45) POC ABG pO2 (80-105) Carbon Dioxide 10 L (22-30) mmol/L BUN 103 H (7-17) mg/dL Creatinine 4.3 H (0.7-1.2) mg/dL Glucose 163 H (65-100) mg/dL POC Glucose 164 H 173 H (70-105) Calcium 6.5 L (8.4-10.2) mg/dL 09/24/16 Range/Units 17:06 POC ABG pCO2 (35-45) POC ABG pO2 (80-105) Carbon Dioxide (22-30) mmol/L BUN (7-17) mg/dL Creatinine (0.7-1.2) mg/dL Glucose (65-100) mg/dL POC Glucose 167 H (70-105) Calcium (8.4-10.2) mg/dL - Imaging and cardiology Chest x-ray: report reviewed (mild bibasilar atelectasis and borderline CHF)
[2016-09-24] MEDS ORDERED: ALBUTEIN IV ONE (18:36)
[2016-09-24] MEDS ORDERED: VANCOMYCIN/NS 1 GM/250 ML 1 GM/250 ML BAG IV ONE (19:00)
[2016-09-24 21:46] LABS: Hepatitis A Antibody IgM Non-Reactive (NonReactive); Hepatitis B Core IgM Non-Reactive (NonReactive); Hepatitis B Surface Antigen Non-Reactive (Negative); Hepatitis C Virus Antibody Non-Reactive (NonReactive)
[2016-09-25] MEDS ORDERED: NACL 0.9% 250ML 250 ML IV ONE ×2 (00:16→01:35)
[2016-09-25] MEDS: VANCOMYCIN PO FEEDTUBE SCH ×2 (00:32→06:02)
[2016-09-25] MEDS: Vasostrict 20 UNIT in NACL 0.9% 100 ML IV SCH ×3 (00:48→22:59)
[2016-09-25] MEDS: PROTONIX IV SCH ×2 (01:19→11:02)
[2016-09-25] MEDS: LEVOPHED DRIP 4 MG/NS 250 ML 4 MG/250 ML BAG IV SCH ×10 (02:03→21:15)
[2016-09-25] MEDS: NEO-SYNEPHRINE 100 MG in NACL 0.9% 90 ML IV SCH ×2 (02:09→22:58)
[2016-09-25] MEDS: ZOSYN/NS 2.25 GM/50ML 2.25 GM/50 ML BAG IV SCH ×3 (03:51→22:30)
[2016-09-25 04:42] LABS: Mean Corpuscular HGB Conc 33 % (30-34); Mean Corpuscular Hemoglobin 27 pg (28-32); Mean Corpuscular Volume 82 fl (79-97); Platelet Count 249 K/mm3 (140-440); Red Blood Count 2.58 M/mm3 (3.65-5.03)
[2016-09-25 04:45] LABS: Red Cell Distribution Width 23.8 % (13.2-15.2)
[2016-09-25] MEDS: HumuLIN R SUB-Q SCH (04:57)
[2016-09-25 05:01] LABS: BUN/Creatinine Ratio 18.94
[2016-09-25] MEDS: HEPARIN SUB-Q SCH ×3 (05:10→21:43)
[2016-09-25 05:44] LABS: Anisocytosis 2+; Band Neutrophils # (Manual) 0.8 K/mm3; Platelet Estimate Consistent w Auto; Total Cells Counted 100
[2016-09-25] MEDS: D5W 1,000 ML with SODIUM BICARBONATE 75 MEQ IV SCH ×2 (08:00→22:59)
[2016-09-25] MEDS: FLAGYL 500 MG/100 ML 500 MG/100 ML BAG IV SCH (08:04)
[2016-09-25] MEDS ORDERED: MAGNESIUM SULFATE 2GM/50ML 2 GM/50 ML BAG IV ONE (08:27)
--- NOTE | 2016-09-25 08:29 | Progress Note ---
Assessment and Plan Assessment and plan: --Febrile illness; patient has persistent fever, on IV antibiotics ID following, larson cultures if not done in the last 24 hours, unable to obtain CT abdomen as patient is unstable --Anemia, hemoglobin today is 7, type and cross and transfuse 1 unit of PRBC and patient's fever comes down Closely monitor H&H, GI following --Acute on chronic kidney disease stage III , worsening renal function , nephrology following Received hemodialysis yesterday --Hypotension/ septic shock on multiple pressors On levophed , titrate systolic blood pressures to more than 100 --Acute hypoxic respiratory failure vent dependent/unable to wean s/p trach and PEG, continue PEG feeds --Paroxysmal A. fib, with intermittent RVR cardiology started amiodarone drip Titrate heart rates to less than 100 --Acute large left MCA CVA status post TPA/encephalopathy Aspirin/statin/supportive care --Aspiration pneumonia Continue vancomycin and Flagyl, ID following --Acute exacerbation of COPD; Nebulizers tapering dose of steroids antibiotics and ventilatory support, pulmonary following --Anemia requiring blood transfusion; closely monitor H&H and transfuse as needed --2 diabetes mellitus; Accu-Chek sliding scale coverage and ADA diet and insulin as needed --Moderate to severe protein calorie malnutrition with albumin of 2.2 Nutritional supplements, tube feeding, supportive care --DVT prophylaxis with heparin --Full CODE STATUS Discharge planning ; LTAC placement when clinically stable Critical Care time 33 minutes The high probability of a clinically significant, sudden or life threatening deterioration of the [cardiovascular, pulmonary, infectious, renal and neurological] system(s) required my full and direct attention, intervention and personal management. The aggregate critical care time was [33] minutes. This time is in addition to time spent performing reported procedures but includes the following: [x] Data Review and interpretation [x] Patient assessment and monitoring of vital signs [x] Documentation [x] Medication orders and management Patient is critically ill, family aware, I discussed with the family periodically patient's severity of illness, poor prognosis, advanced directives Brother and son wanted aggressive management and full CODE STATUS. History Interval history: Patient seen and evaluated nicely this morning medical records reviewed , patient remains critically ill Febrile, hypotensive on multiple pressors, tachypneic, tachycardic on amiodarone drip, significant drop in H&H Status post trach and PEG, on vent, awaiting LTAC placement Hospitalist Physical - Constitutional Vitals: Temp Pulse Resp BP Pulse Ox 103.1 F H 134 H 29 H 131/82 100 09/25/16 08:00 09/25/16 08:07 09/25/16 08:00 09/25/16 08:07 09/25/16 08:07 General appearance: Present: mild distress, cachectic, obese, other (febrile) - EENT Eyes: Present: PERRL - Neck Neck: Present: supple, normal ROM, other (status post tracheostomy) - Respiratory Respiratory effort: normal Respiratory: bilateral: diminished, rhonchi, negative: rales, wheezing - Cardiovascular Rhythm: irregularly irregular Heart Sounds: Present: S1 & S2 (tachycardia) - Extremities Extremities: pulses intact Extremity abnormal: edema - Abdominal General gastrointestinal: soft, non-tender, non-distended, normal bowel sounds, other (PEG tube in place) - Integumentary Integumentary: Present: clear, warm - Psychiatric Psychiatric: other (noncommunicative) - Neurologic Neurologic: other (noncommunicative) Results - Labs CBC & Chem 7: 09/25/16 04:20 09/25/16 04:20 Labs: Laboratory Last Values WBC 7.3 K/mm3 (4.5-11.0) 09/25/16 04:20 RBC 2.58 M/mm3 (3.65-5.03) L 09/25/16 04:20 Hgb 7.0 gm/dl (10.1-14.3) L 09/25/16 04:20 Hct 21.0 % (30.3-42.9) L 09/25/16 04:20 MCV 82 fl (79-97) 09/25/16 04:20 MCH 27 pg (28-32) L 09/25/16 04:20 MCHC 33 % (30-34) 09/25/16 04:20 RDW 23.8 % (13.2-15.2) H 09/25/16 04:20 Plt Count 249 K/mm3 (140-440) 09/25/16 04:20 Lymph % (Auto) 6.9 % (13.4-35.0) L 09/21/16 07:45 [place] % (Auto) 9.4 % (0.0-7.3) H 09/21/16 07:45 Eos % (Auto) 0.3 % (0.0-4.3) 09/21/16 07:45 Baso % (Auto) 0.2 % (0.0-1.8) 09/21/16 07:45 Lymph # 0.9 K/mm3 (1.2-5.4) L 09/21/16 07:45 [place] # 1.3 K/mm3 (0.0-0.8) H 09/21/16 07:45 Eos # 0.0 K/mm3 (0.0-0.4) 09/21/16 07:45 Baso # 0.0 K/mm3 (0.0-0.1) 09/21/16 07:45 Add Manual Diff Complete 09/25/16 04:20 Total Counted 100 09/25/16 04:20 Seg Neutrophils % Morning Nanny 09/23/16 05:00 Seg Neuts % (Manual) 62.0 % (40.0-70.0) 09/25/16 04:20 Band Neutrophils % 11.0 % 09/25/16 04:20 Lymphocytes % (Manual) 12.0 % (13.4-35.0) L 09/25/16 04:20 Reactive Lymphs % (Man) 0 % 09/25/16 04:20 Monocytes % (Manual) 6.0 % (0.0-7.3) 09/25/16 04:20 Eosinophils % (Manual) 7.0 % (0.0-4.3) H 09/25/16 04:20 Basophils % (Manual) 2.0 % (0.0-1.8) H 09/25/16 04:20 Metamyelocytes % 0 % 09/25/16 04:20 Myelocytes % 0 % 09/25/16 04:20 Promyelocytes % 0 % 09/25/16 04:20 Blast Cells % 0 % 09/25/16 04:20 Nucleated RBC % Not Reportable 09/25/16 04:20 Seg Neutrophils # 11.5 K/mm3 (1.8-7.7) H 09/21/16 07:45 Seg Neutrophils # Man 4.5 K/mm3 (1.8-7.7) 09/25/16 04:20 Band Neutrophils # 0.8 K/mm3 09/25/16 04:20 Lymphocytes # (Manual) 0.9 K/mm3 (1.2-5.4) L 09/25/16 04:20 Abs React Lymphs (Man) 0.0 K/mm3 09/25/16 04:20 Monocytes # (Manual) 0.4 K/mm3 (0.0-0.8) 09/25/16 04:20 Eosinophils # (Manual) 0.5 K/mm3 (0.0-0.4) H 09/25/16 04:20 Basophils # (Manual) 0.1 K/mm3 (0.0-0.1) 09/25/16 04:20 Metamyelocytes # 0.0 K/mm3 09/25/16 04:20 Myelocytes # 0.0 K/mm3 09/25/16 04:20 Promyelocytes # 0.0 K/mm3 09/25/16 04:20 Blast Cells # 0.0 K/mm3 09/25/16 04:20 Pathologist Review 09/13/16 04:00 WBC Morphology Not Reportable 09/25/16 04:20 Hypersegmented Neuts Not Reportable 09/25/16 04:20 Hyposegmented Neuts Not Reportable 09/25/16 04:20 Hypogranular Neuts Not Reportable 09/25/16 04:20 Smudge Cells Not Reportable 09/25/16 04:20 Toxic Granulation Not Reportable 09/25/16 04:20 Toxic Vacuolation Not Reportable 09/25/16 04:20 Dohle Bodies Not Reportable 09/25/16 04:20 Pelger-Huet Anomaly Not Reportable 09/25/16 04:20 Jasmina Rods Not Reportable 09/25/16 04:20 Platelet Estimate Consistent w auto 09/25/16 04:20 Clumped Platelets Not Reportable 09/25/16 04:20 Plt Clumps, EDTA Not Reportable 09/25/16 04:20 Large Platelets Not Reportable 09/25/16 04:20 Giant Platelets Not Reportable 09/25/16 04:20 Platelet Satelliting Not Reportable 09/25/16 04:20 Plt Morphology Comment Not Reportable 09/25/16 04:20 RBC Morphology Not Reportable 09/25/16 04:20 Dimorphic RBCs Not Reportable 09/25/16 04:20 Polychromasia Not Reportable 09/25/16 04:20 Hypochromasia Not Reportable 09/25/16 04:20 Poikilocytosis Not Reportable 09/25/16 04:20 Anisocytosis 2+ 09/25/16 04:20 Microcytosis Not Reportable 09/25/16 04:20 Macrocytosis Not Reportable 09/25/16 04:20 Spherocytes Not Reportable 09/25/16 04:20 Pappenheimer Bodies Not Reportable 09/25/16 04:20 Sickle Cells Not Reportable 09/25/16 04:20 Target Cells Not Reportable 09/25/16 04:20 Tear Drop Cells Not Reportable 09/25/16 04:20 Ovalocytes Not Reportable 09/25/16 04:20 Helmet Cells Not Reportable 09/25/16 04:20 [place] Bodies Not Reportable 09/25/16 04:20 [place] Rings Not Reportable 09/25/16 04:20 [place] Cells Not Reportable 09/25/16 04:20 Bite Cells Not Reportable 09/25/16 04:20 Crenated Cell Not Reportable 09/25/16 04:20 Elliptocytes Not Reportable 09/25/16 04:20 Acanthocytes (Spur) Not Reportable 09/25/16 04:20 Rouleaux Not Reportable 09/25/16 04:20 Hemoglobin C Crystals Not Reportable 09/25/16 04:20 Schistocytes Not Reportable 09/25/16 04:20 Malaria parasites Not Reportable 09/25/16 04:20 ESR > 140.0 mm/Hr (0-20) 09/08/16 11:48 Jun Bodies Not Reportable 09/25/16 04:20 Hem Pathologist Commnt No 09/25/16 04:20 PT 13.8 Sec. (12.2-14.9) 09/15/16 05:00 INR 1.01 (0.87-1.13) 09/15/16 05:00 APTT 24.4 Sec. (24.2-36.6) 09/15/16 05:00 Thrombin Time 16.8 Sec. (15.1-19.6) 09/03/16 00:10 Fibrinogen 750 mg/dl (211-480) H 09/08/16 11:48 Lupus Anticoagulant see below 09/12/16 09:59 LA PTT Baseline See scanned report 09/12/16 09:59 dRVVT Confirm Interp Positive (Negative) H 09/12/16 09:59 dRVVT Screen 50:50 See scanned report 09/12/16 09:59 dRVVT Mix Interpret See scanned report 09/12/16 09:59 Protein C Antigen 122 % (70-140) 09/08/16 15:35 Free Protein S 97 % normal (50-147) 09/08/16 15:35 Total Protein S 109 % (70-140) 09/08/16 15:35 Antithrombin III Ag 100 % (80-120) 09/08/16 15:35 Factor V Activity 182 % (65-150) H 09/08/16 15:35 POC ABG pH 7.436 (7.35-7.45) 09/25/16 08:02 POC ABG pCO2 24.7 (35-45) L 09/25/16 08:02 POC ABG pO2 152 (80-105) H 09/25/16 08:02 POC ABG HCO3 16.6 09/25/16 08:02 POC ABG Total CO2 17 09/25/16 08:02 POC ABG O2 Sat 99 09/25/16 08:02 POC ABG Base Excess -8 09/25/16 08:02 FiO2 50 % 09/25/16 08:02 Sodium 137 mmol/L (137-145) 09/25/16 04:20 Potassium 4.6 mmol/L (3.6-5.0) 09/25/16 04:20 Chloride 102.9 mmol/L (98-107) 09/25/16 04:20 Carbon Dioxide 15 mmol/L (22-30) L 09/25/16 04:20 Anion Gap 24 mmol/L 09/25/16 04:20 BUN 72 mg/dL (7-17) H 09/25/16 04:20 Creatinine 3.8 mg/dL (0.7-1.2) H 09/25/16 04:20 Estimated GFR 16 ml/min 09/25/16 04:20 BUN/Creatinine Ratio 18.94 % 09/25/16 04:20 Glucose 98 mg/dL (65-100) 09/25/16 04:20 POC Glucose 113 (70-105) H 09/25/16 04:57 Osmolality 351 Mosm/kg 09/16/16 11:47 Lactic Acid 1.40 mmol/L (0.7-2.0) 09/23/16 05:00 Calcium 6.0 mg/dL (8.4-10.2) L 09/25/16 04:20 Phosphorus 4.60 mg/dL (2.5-4.5) H 09/25/16 04:20 Magnesium 1.60 mg/dL (1.7-2.3) L 09/25/16 04:20 Total Bilirubin 0.30 mg/dL (0.1-1.2) 09/13/16 04:00 AST 20 units/L (5-40) 09/13/16 04:00 ALT 18 units/L (7-56) 09/13/16 04:00 Alkaline Phosphatase 72 units/L (35-129) 09/13/16 04:00 Ammonia 27.0 umol/L (25-60) 09/07/16 08:37 Total Creatine Kinase 67 units/L (30-135) 09/03/16 11:26 CK-MB (CK-2) 1.4 ng/mL (0.0-4.0) 09/03/16 11:26 CK-MB (CK-2) Rel Index 2.0 (0-4) 09/03/16 11:26 Troponin T < 0.010 ng/mL (0.00-0.029) 09/06/16 10:43 C-Reactive Protein 3.20 mg/dL (0.00-1.30) H 09/23/16 05:00 Total Protein 6.2 g/dL (6.3-8.2) L 09/13/16 04:00 Albumin 2.9 g/dL (3.9-5) L 09/13/16 04:00 Albumin/Globulin Ratio 0.9 % 09/13/16 04:00 Triglycerides 243 mg/dL (2-149) H 09/20/16 04:10 Cholesterol 189 mg/dL (50-199) 09/04/16 03:31 LDL Cholesterol Direct 126 mg/dL (50-130) 09/04/16 03:31 HDL Cholesterol 31 mg/dL (40-59) L 09/04/16 03:31 Cholesterol/HDL Ratio 6.09 % 09/04/16 03:31 Angiotensin Convert Enz See scanned report 09/08/16 11:48 TSH 1.010 mlU/mL (0.270-4.200) 09/07/16 08:37 HCG, Qual Negative (Negative) 09/03/16 00:10 Urine Color Yellow (Yellow) 09/09/16 14:13 Urine Turbidity Slightly-cloudy (Clear) 09/09/16 14:13 Urine pH 5.0 (5.0-7.0) 09/09/16 14:13 Ur Specific [place] 1.012 (1.003-1.030) 09/09/16 14:13 Urine Protein 30 mg/dl mg/dL (Negative) 09/09/16 14:13 Urine Glucose (UA) Neg mg/dL (Negative) 09/09/16 14:13 Urine Ketones Neg mg/dL (Negative) 09/09/16 14:13 Urine Blood Lg (Negative) 09/09/16 14:13 Urine Nitrite Neg (Negative) 09/09/16 14:13 Urine Bilirubin Neg (Negative) 09/09/16 14:13 Urine Urobilinogen < 2.0 mg/dL (<2.0) 09/09/16 14:13 Ur Leukocyte Esterase Sm (Negative) 09/09/16 14:13 Urine WBC (Auto) 25.0 /HPF (0.0-6.0) H 09/09/16 14:13 Urine RBC (Auto) > 182.0 /HPF (0.0-6.0) 09/09/16 14:13 Urine Bacteria (Auto) 1+ /HPF (Negative) 09/09/16 14:13 Urine WBC Clumps 2+ /HPF 09/07/16 02:47 Hyaline Casts 4 /LPF 09/07/16 02:47 Urine Mucus Few /HPF 09/09/16 14:13 Urine Eosinophils None seen (None Seen) 09/07/16 16:00 Urine Total Volume 1350 09/21/16 12:00 Urine Creatinine 54.8 mg/dL (0.1-20.0) H 09/21/16 12:00 Height (in) 67.0 inches 09/21/16 12:00 Weight (lb) 92.0 lbs 09/21/16 12:00 Creatinine Clearance 15 09/21/16 12:00 Urine Sodium 36 mEq/L 09/16/16 19:19 Urine Total Protein 16 mg/dL (5-11.8) H 09/16/16 19:19 Vancomycin Trough 2.3 ug/mL (5.0-20.0) L 09/21/16 13:00 Random Vancomycin 2.3 ug/mL (0-40.0) 09/09/16 03:00 Urine Opiates Screen Presumptive negative 09/03/16 15:11 Urine Methadone Screen Presumptive positive 09/03/16 15:11 Ur Barbiturates Screen Presumptive positive 09/03/16 15:11 Ur Phencyclidine Scrn Presumptive negative 09/03/16 15:11 Ur Amphetamines Screen Presumptive negative 09/03/16 15:11 U Benzodiazepines Scrn Presumptive negative 09/03/16 15:11 Urine Cocaine Screen Presumptive negative 09/03/16 15:11 U Marijuana (THC) Screen Presumptive positive 09/03/16 15:11 Drugs of Abuse Note Disclamer 09/03/16 15:11 Rheumatoid Factor 24 IU/ml (0-13) H 09/08/16 11:48 SAHIL Screen Negative (Negative) 09/07/16 09:20 Proteinase 3 (PR3) Ab <1.0 AI (<1.0) 09/07/16 09:20 Myeloperoxidase Ab <1.0 AI (<1.0) 09/07/16 09:20 Sjogren's Antibody <1.0 AI (<1.0) 09/08/16 15:35 Scl-70 Scleroderma Ab <1.0 AI (<1.0) 09/08/16 15:35 Centromere B Antibody <1.0 AI (<1.0) 09/08/16 12:02 Cardiolipid IgG Ab <14 GPL (<=14) 09/12/16 09:59 Cardiolipid IgA Ab <11 APL (<=11) 09/12/16 09:59 Cardiolipid IgM Ab <12 MPL (<=12) 09/12/16 09:59 Complement C3 148 mg/dL (90-180) 09/07/16 09:20 Complement C4 58 mg/dL (16-47) H 09/07/16 09:20 RPR Nonreactive (Nonreactive) 09/08/16 11:48 Hepatitis A IgM Ab Non-reactive (NonReactive) 09/24/16 14:40 Hep Bs Antigen Non-reactive (Negative) 09/24/16 14:40 Hep B Core IgM Ab Non-reactive (NonReactive) 09/24/16 14:40 Hepatitis C Antibody Non-reactive (NonReactive) 09/24/16 14:40 HIV 1&2 Antibody Rapid Non react (Non React) 09/08/16 11:48 HIV P24 Antigen Non react (Non React) 09/08/16 11:48 Blood Type A POSITIVE 09/16/16 13:55 Antibody Screen TNR 09/16/16 13:55 DLEORIS Antibody Screen Negative 09/16/16 13:55 Crossmatch See Detail 09/16/16 13:55
[2016-09-25] MEDS ORDERED: NACL 0.9% 500 ML 500 ML IV ONE (08:40)
--- NOTE | 2016-09-25 10:40 | XRay Report ---
KUB: 09/25/16 CLINICAL: Septic shock. FINDINGS: Positioning is less than optimal and the technologist noted that she could not straighten her for the exam. The abdomen is relatively gasless with no distended bowel and no apparent pneumoperitoneum. The nasogastric tube is satisfactory. A gastrostomy tube is identified in the distal aspect of the stomach. Surgical clips in the right upper quadrant. An opacity in the right upper quadrant is suggestive of a staghorn renal calculus this was not identified on recent abdominal images. IMPRESSION: Negative abdomen with no obstruction or obvious bowel perforation.
--- NOTE | 2016-09-25 10:41 | XRay Report ---
AP CHEST 09/25/16 CLINICAL: Respiratory failure. COMPARISON:The previous day. FINDINGS: The tracheostomy tube is in satisfactory position. The feeding tube is satisfactory. Stable cardiomegaly. Normal pulmonary vessels. The lungs are normally expanded and clear. No pneumothorax. The left PICC line tip is in the distal SVC. IMPRESSION: No CHF or pneumonia.
[2016-09-25] MEDS: REGLAN IV SCH ×2 (11:06→21:31)
[2016-09-25] MEDS: SODIUM BICARBONATE PO SCH ×3 (11:09→21:32)
[2016-09-25] MEDS: ASPIRIN PO SCH (11:10)
[2016-09-25] MEDS: LEVEMIR (NF) SUB-Q SCH (11:10)
--- NOTE | 2016-09-25 11:11 | Progress Note ---
Assessment and Plan - Patient Problems (1) Acute respiratory failure with hypoxia Current Visit: Yes Status: Acute Plan to address problem: - continue aspiration precautions / address VAP bundles - continue to wean oxygen for MAP > 94% - continue bronchodilators and pulmonary toilet - tapered off systemic steroids (no active needs pulmonary-aquino) - completed empiric levaquin dosing - s/p tracheostomy - placed back on AC mode after review of ABG and secondary to increased work of breathing - increased set rate also - continue to hold on weaning today (2) Acute CVA (cerebrovascular accident) Current Visit: Yes Status: Acute Plan to address problem: - out of tpA window (initially stopped due to uncontrolled HTN) - Left MCA teritory stroke with some midline shift on last CT - seen by neurology and prognosis for recovery of mental status guarded to poor - optimizing secondary prevention modalities now (BP, lipid anti-platelet therapy) - off systemic steroids now (started earlier for edema) - resumed ASA and Plavix (3) Hypertensive emergency Current Visit: Yes Status: Acute Plan to address problem: - stopped all antihypertensives while septic - follow cllinically (4) Obesity (BMI 35.0-39.9 without comorbidity) Current Visit: Yes Status: Chronic Plan to address problem: - NPO now with NGT to LIS - bowel sounds hypoactive; KUB reviewed; will increase reglan dose (5) Type 2 diabetes mellitus Current Visit: Yes Status: Chronic Qualifiers: Diabetes mellitus complication status: D Diabetes mellitus complication detail: D Diabetic retinopathy severity: D Proliferative retinopathy type: P Diabetes mellitus macular edema: D Diabetes mellitus termite helper insulin use : D Laterality: L Chronic kidney disease stage: C Plan to address problem: - continue SSI - continue lantus at 8 units sq q24h (6) Leukocytosis (leucocytosis) Current Visit: Yes Status: Acute Qualifiers: Leukocytosis type: leukemoid reaction Qualified Code(s): D72.823 - Leukemoid reaction Plan to address problem: - suspect azotemia was also contributing - Afebrile - lactate WNL and CRP not significantly elevated - WBC WNL today; will repeat CBC in am in case of lab error - complete AB's per ID recs (7) Agitation Current Visit: Yes Status: Acute Plan to address problem: - prn sedation (8) Atrial fibrillation Current Visit: Yes Status: Acute Qualifiers: Atrial fibrillation type: A Plan to address problem: - failed cardioversion earlier - cardiology evaluation ongoing (9) JUANITA (acute kidney injury) Current Visit: Yes Status: Acute Plan to address problem: - on Dialysis now - oliguric - will defer to nephrology - continue vasopressor support re: cardiorenal issues and to aid dialysis (10) Pyrexia of unknown origin Current Visit: Yes Status: Acute Plan to address problem: - will get dopplers as part of a PUO work-up to r/o VTE - continue to treat with AB;'s empirically - will send fungal blood cultures if drawn separately (11) Severe sepsis Current Visit: Yes Status: Acute Plan to address problem: - SvO2 estimate was 55% yesterday - volume resuscitated to boost cardiac output and tissue oxygen delivery - continue AB's and follow cultures - wean vasopressors for target MAP >/= 60-65mmHg (12) Discharge planning issues Current Visit: Yes Status: Acute Plan to address problem: - she remains critically ill on life sustaining interventions including MVS and at risk for further acute deterioration including .....35' CCT ....prognosis is guarded Subjective Date of service: 09/25/16 Principal diagnosis: Acute resp failure on MVS; S/P Acute CVA; Acute Encephalopathy; JUANITA Interval history: Seen and examined at bedside; 24 hour events reviewed; nursing and respiratory care staff consulted; had a huge bout of emesis last night; NGT placed to suction with over 4 liters out so far; also casing blood pressures through the night beu weaning off now; off neosynephrine but remains on levophed and vasopressin; tentatively for another HD/UF session today; s/p unsuccessful cardioversion Objective Vital Signs - 12hr 09/24/16 09/24/16 09/24/16 23:15 23:30 23:36 Temperature Pulse Rate 140 H 148 H 133 H Pulse Rate [ Right Dorsalis Pedis] Respiratory 44 H 43 H 33 H Rate Respiratory Rate [ Generalized] Blood Pressure 127/49 130/62 130/62 O2 Sat by Pulse 100 100 100 Oximetry O2 Sat by Pulse Oximetry [ Assessment] 09/24/16 09/24/16 09/25/16 23:40 23:45 00:00 Temperature 101.7 F H Pulse Rate 132 H 141 H Pulse Rate [ 156 H Right Dorsalis Pedis] Respiratory 34 H 46 H Rate Respiratory 35 H Rate [ Generalized] Blood Pressure 78/41 126/57 O2 Sat by Pulse 100 99 Oximetry O2 Sat by Pulse 100 Oximetry [ Assessment] 09/25/16 09/25/16 09/25/16 00:15 00:30 00:45 Temperature Pulse Rate 141 H 141 H 137 H Pulse Rate [ Right Dorsalis Pedis] Respiratory 47 H 45 H 43 H Rate Respiratory Rate [ Generalized] Blood Pressure 141/47 136/58 139/56 O2 Sat by Pulse 100 100 100 Oximetry O2 Sat by Pulse Oximetry [ Assessment] 09/25/16 09/25/16 09/25/16 01:00 01:15 01:30 Temperature Pulse Rate 144 H 142 H 138 H Pulse Rate [ Right Dorsalis Pedis] Respiratory 35 H 45 H 39 H Rate Respiratory Rate [ Generalized] Blood Pressure 137/60 130/58 134/68 O2 Sat by Pulse 100 100 95 Oximetry O2 Sat by Pulse Oximetry [ Assessment] 09/25/16 09/25/16 09/25/16 01:45 02:00 02:16 Temperature Pulse Rate 141 H 135 H 140 H Pulse Rate [ Right Dorsalis Pedis] Respiratory 36 H 41 H 41 H Rate Respiratory Rate [ Generalized] Blood Pressure 137/74 142/70 165/58 O2 Sat by Pulse 100 100 100 Oximetry O2 Sat by Pulse Oximetry [ Assessment] 09/25/16 09/25/16 09/25/16 02:30 02:45 03:00 Temperature Pulse Rate 146 H 139 H 153 H Pulse Rate [ Right Dorsalis Pedis] Respiratory 37 H 42 H 43 H Rate Respiratory Rate [ Generalized] Blood Pressure 154/89 151/85 156/87 O2 Sat by Pulse 100 100 100 Oximetry O2 Sat by Pulse Oximetry [ Assessment] 09/25/16 09/25/16 09/25/16 03:15 03:30 03:45 Temperature Pulse Rate 140 H 148 H 143 H Pulse Rate [ Right Dorsalis Pedis] Respiratory 37 H 43 H 37 H Rate Respiratory Rate [ Generalized] Blood Pressure 141/84 145/82 135/82 O2 Sat by Pulse 100 100 96 Oximetry O2 Sat by Pulse Oximetry [ Assessment] 09/25/16 09/25/16 09/25/16 03:52 04:00 04:16 Temperature 103.1 F H Pulse Rate 148 H 169 H Pulse Rate [ Right Dorsalis Pedis] Respiratory 35 H 37 H Rate Respiratory Rate [ Generalized] Blood Pressure 135/87 135/87 O2 Sat by Pulse 100 100 Oximetry O2 Sat by Pulse Oximetry [ Assessment] 09/25/16 09/25/16 09/25/16 04:30 04:35 04:45 Temperature Pulse Rate 163 H 151 H 138 H Pulse Rate [ Right Dorsalis Pedis] Respiratory 38 H 39 H Rate Respiratory Rate [ Generalized] Blood Pressure 134/66 143/74 O2 Sat by Pulse 100 100 Oximetry O2 Sat by Pulse Oximetry [ Assessment] 09/25/16 09/25/16 09/25/16 05:00 05:15 05:30 Temperature Pulse Rate 137 H 141 H 148 H Pulse Rate [ Right Dorsalis Pedis] Respiratory 39 H 36 H 39 H Rate Respiratory Rate [ Generalized] Blood Pressure 159/81 140/82 154/82 O2 Sat by Pulse 100 100 100 Oximetry O2 Sat by Pulse Oximetry [ Assessment] 09/25/16 09/25/16 09/25/16 05:45 06:00 06:15 Temperature Pulse Rate 138 H 151 H 136 H Pulse Rate [ Right Dorsalis Pedis] Respiratory 40 H 36 H 36 H Rate Respiratory Rate [ Generalized] Blood Pressure 136/82 146/81 135/85 O2 Sat by Pulse 100 100 100 Oximetry O2 Sat by Pulse Oximetry [ Assessment] 09/25/16 09/25/16 09/25/16 06:30 06:46 07:00 Temperature Pulse Rate 147 H 132 H 139 H Pulse Rate [ Right Dorsalis Pedis] Respiratory 37 H 25 H 36 H Rate Respiratory Rate [ Generalized] Blood Pressure 127/64 90/51 136/75 O2 Sat by Pulse 100 100 98 Oximetry O2 Sat by Pulse Oximetry [ Assessment] 09/25/16 09/25/16 09/25/16 07:15 07:30 07:45 Temperature Pulse Rate 139 H 144 H 139 H Pulse Rate [ Right Dorsalis Pedis] Respiratory 37 H 40 H 40 H Rate Respiratory Rate [ Generalized] Blood Pressure 130/80 132/80 135/76 O2 Sat by Pulse 100 100 100 Oximetry O2 Sat by Pulse Oximetry [ Assessment] 09/25/16 09/25/16 09/25/16 07:47 08:00 08:07 Temperature 103.1 F H Pulse Rate 135 H 137 H 134 H Pulse Rate [ Right Dorsalis Pedis] Respiratory 29 H Rate Respiratory Rate [ Generalized] Blood Pressure 132/80 131/82 131/82 O2 Sat by Pulse 100 100 100 Oximetry O2 Sat by Pulse Oximetry [ Assessment] Constitutional: no acute distress, other (encephalopathic; soff sedation now) Eyes: non-icteric, other (tracheostomy tube in midline of neck) ENT: oropharynx moist Neck: supple, no lymphadenopathy Effort: normal Ascultation: Bilateral: diminished breath sounds, rhonchi (bases) Cardiovascular: regular rate and rhythm Gastrointestinal: normoactive bowel sounds, soft, non-tender, non-distended Integumentary: normal Extremities: no cyanosis, no edema, pulses normal, no ischemia or petechiae Neurologic: pupils equal and round, other (sedated) Psychiatric: other (unable to assess) CBC and BMP: 09/25/16 04:20 09/25/16 04:20 ABG, PT/INR, D-dimer: ABG POC ABG pH 7.436 (7.35-7.45) 09/25/16 08:02 POC ABG pCO2 24.7 (35-45) L 09/25/16 08:02 POC ABG pO2 152 (80-105) H 09/25/16 08:02 POC ABG HCO3 16.6 09/25/16 08:02 POC ABG Total CO2 17 09/25/16 08:02 POC ABG O2 Sat 99 09/25/16 08:02 PT/INR, D-dimer PT 13.8 Sec. (12.2-14.9) 09/15/16 05:00 INR 1.01 (0.87-1.13) 09/15/16 05:00 Abnormal lab findings: Abnormal Labs 09/03/16 09/03/16 09/03/16 12:12 15:07 16:20 WBC RBC Hgb Hct MCV MCH MCHC RDW Plt Count Lymph % (Auto) [place] % (Auto) Lymph # [place] # Seg Neutrophils % Seg Neuts % (Manual) Lymphocytes % (Manual) Monocytes % (Manual) Eosinophils % (Manual) Basophils % (Manual) Seg Neutrophils # Seg Neutrophils # Man Lymphocytes # (Manual) Monocytes # (Manual) Eosinophils # (Manual) Fibrinogen dRVVT Confirm Interp Factor V Activity POC ABG pH 7.452 H POC ABG pCO2 POC ABG pO2 Sodium Potassium Chloride Carbon Dioxide BUN Creatinine Glucose POC Glucose 178 H Calcium Phosphorus 2.20 L Magnesium 1.60 L C-Reactive Protein Total Protein Albumin Triglycerides HDL Cholesterol Urine WBC (Auto) Urine Creatinine Urine Total Protein Vancomycin Trough Rheumatoid Factor Complement C4 Crossmatch 09/03/16 09/03/16 09/03/16 17:57 17:58 23:50 WBC RBC Hgb Hct MCV MCH MCHC RDW Plt Count Lymph % (Auto) [place] % (Auto) Lymph # [place] # Seg Neutrophils % Seg Neuts % (Manual) Lymphocytes % (Manual) Monocytes % (Manual) Eosinophils % (Manual) Basophils % (Manual) Seg Neutrophils # Seg Neutrophils # Man Lymphocytes # (Manual) Monocytes # (Manual) Eosinophils # (Manual) Fibrinogen dRVVT Confirm Interp Factor V Activity POC ABG pH POC ABG pCO2 POC ABG pO2 Sodium Potassium Chloride Carbon Dioxide BUN Creatinine Glucose POC Glucose 162 H 145 H Calcium Phosphorus 2.30 L Magnesium C-Reactive Protein Total Protein Albumin Triglycerides HDL Cholesterol Urine WBC (Auto) Urine Creatinine Urine Total Protein Vancomycin Trough Rheumatoid Factor Complement C4 Crossmatch 09/04/16 09/04/16 09/04/16 03:31 03:31 05:42 WBC RBC Hgb 9.7 L D Hct MCV 72 L MCH 23 L MCHC RDW 17.5 H Plt Count Lymph % (Auto) 11.1 L [place] % (Auto) Lymph # [place] # Seg Neutrophils % 84.3 H Seg Neuts % (Manual) Lymphocytes % (Manual) Monocytes % (Manual) Eosinophils % (Manual) Basophils % (Manual) Seg Neutrophils # 8.9 H Seg Neutrophils # Man Lymphocytes # (Manual) Monocytes # (Manual) Eosinophils # (Manual) Fibrinogen dRVVT Confirm Interp Factor V Activity POC ABG pH POC ABG pCO2 POC ABG pO2 Sodium 135 L Potassium 2.9 L* Chloride 97.2 L Carbon Dioxide 19 L BUN Creatinine 1.7 H Glucose 170 H POC Glucose 152 H Calcium Phosphorus Magnesium C-Reactive Protein Total Protein Albumin Triglycerides 160 H HDL Cholesterol 31 L Urine WBC (Auto) Urine Creatinine Urine Total Protein Vancomycin Trough Rheumatoid Factor Complement C4 Crossmatch 09/04/16 09/04/16 09/04/16 11:34 17:46 23:29 WBC RBC Hgb Hct MCV MCH MCHC RDW Plt Count Lymph % (Auto) [place] % (Auto) Lymph # [place] # Seg Neutrophils % Seg Neuts % (Manual) Lymphocytes % (Manual) Monocytes % (Manual) Eosinophils % (Manual) Basophils % (Manual) Seg Neutrophils # Seg Neutrophils # Man Lymphocytes # (Manual) Monocytes # (Manual) Eosinophils # (Manual) Fibrinogen dRVVT Confirm Interp Factor V Activity POC ABG pH POC ABG pCO2 POC ABG pO2 Sodium Potassium Chloride Carbon Dioxide BUN Creatinine Glucose POC Glucose 165 H 210 H 139 H Calcium Phosphorus Magnesium C-Reactive Protein Total Protein Albumin Triglycerides HDL Cholesterol Urine WBC (Auto) Urine Creatinine Urine Total Protein Vancomycin Trough Rheumatoid Factor Complement C4 Crossmatch 09/05/16 09/05/16 09/05/16 04:05 04:05 05:38 WBC RBC Hgb Hct MCV 76 L D MCH 23 L MCHC RDW 17.8 H Plt Count Lymph % (Auto) [place] % (Auto) Lymph # [place] # Seg Neutrophils % Seg Neuts % (Manual) Lymphocytes % (Manual) Monocytes % (Manual) Eosinophils % (Manual) Basophils % (Manual) Seg Neutrophils # Seg Neutrophils # Man Lymphocytes # (Manual) Monocytes # (Manual) Eosinophils # (Manual) Fibrinogen dRVVT Confirm Interp Factor V Activity POC ABG pH POC ABG pCO2 POC ABG pO2 Sodium 134 L Potassium Chloride Carbon Dioxide 18 L BUN Creatinine 1.8 H Glucose 192 H POC Glucose 175 H Calcium Phosphorus Magnesium C-Reactive Protein Total Protein Albumin Triglycerides HDL Cholesterol Urine WBC (Auto) Urine Creatinine Urine Total Protein Vancomycin Trough Rheumatoid Factor Complement C4 Crossmatch 09/05/16 09/05/16 09/05/16 11:38 17:48 23:22 WBC RBC Hgb Hct MCV MCH MCHC RDW Plt Count Lymph % (Auto) [place] % (Auto) Lymph # [place] # Seg Neutrophils % Seg Neuts % (Manual) Lymphocytes % (Manual) Monocytes % (Manual) Eosinophils % (Manual) Basophils % (Manual) Seg Neutrophils # Seg Neutrophils # Man Lymphocytes # (Manual) Monocytes # (Manual) Eosinophils # (Manual) Fibrinogen dRVVT Confirm Interp Factor V Activity POC ABG pH POC ABG pCO2 POC ABG pO2 Sodium Potassium Chloride Carbon Dioxide BUN Creatinine Glucose POC Glucose 164 H 186 H 195 H Calcium Phosphorus Magnesium C-Reactive Protein Total Protein Albumin Triglycerides HDL Cholesterol Urine WBC (Auto) Urine Creatinine Urine Total Protein Vancomycin Trough Rheumatoid Factor Complement C4 Crossmatch 09/06/16 09/06/16 09/06/16 04:12 05:59 07:32 WBC RBC Hgb Hct MCV MCH MCHC RDW Plt Count Lymph % (Auto) [place] % (Auto) Lymph # [place] # Seg Neutrophils % Seg Neuts % (Manual) Lymphocytes % (Manual) Monocytes % (Manual) Eosinophils % (Manual) Basophils % (Manual) Seg Neutrophils # Seg Neutrophils # Man Lymphocytes # (Manual) Monocytes # (Manual) Eosinophils # (Manual) Fibrinogen dRVVT Confirm Interp Factor V Activity POC ABG pH 7.514 H POC ABG pCO2 29.1 L POC ABG pO2 72 L Sodium 133 L Potassium 3.4 L Chloride 94.9 L Carbon Dioxide 19 L BUN 30 H Creatinine 2.1 H Glucose 139 H POC Glucose 146 H Calcium Phosphorus Magnesium C-Reactive Protein Total Protein Albumin Triglycerides HDL Cholesterol Urine WBC (Auto) Urine Creatinine Urine Total Protein Vancomycin Trough Rheumatoid Factor Complement C4 Crossmatch 09/06/16 09/06/16 09/06/16 11:57 17:58 19:02 WBC RBC Hgb Hct MCV MCH MCHC RDW Plt Count Lymph % (Auto) [place] % (Auto) Lymph # [place] # Seg Neutrophils % Seg Neuts % (Manual) Lymphocytes % (Manual) Monocytes % (Manual) Eosinophils % (Manual) Basophils % (Manual) Seg Neutrophils # Seg Neutrophils # Man Lymphocytes # (Manual) Monocytes # (Manual) Eosinophils # (Manual) Fibrinogen dRVVT Confirm Interp Factor V Activity POC ABG pH 7.465 H POC ABG pCO2 32.0 L POC ABG pO2 Sodium Potassium Chloride Carbon Dioxide BUN Creatinine Glucose POC Glucose 165 H 160 H Calcium Phosphorus Magnesium C-Reactive Protein Total Protein Albumin Triglycerides HDL Cholesterol Urine WBC (Auto) Urine Creatinine Urine Total Protein Vancomycin Trough Rheumatoid Factor Complement C4 Crossmatch 09/06/16 09/07/16 09/07/16 23:45 02:47 02:47 WBC RBC Hgb Hct MCV MCH MCHC RDW Plt Count Lymph % (Auto) [place] % (Auto) Lymph # [place] # Seg Neutrophils % Seg Neuts % (Manual) Lymphocytes % (Manual) Monocytes % (Manual) Eosinophils % (Manual) Basophils % (Manual) Seg Neutrophils # Seg Neutrophils # Man Lymphocytes # (Manual) Monocytes # (Manual) Eosinophils # (Manual) Fibrinogen dRVVT Confirm Interp Factor V Activity POC ABG pH POC ABG pCO2 POC ABG pO2 Sodium Potassium Chloride Carbon Dioxide BUN Creatinine Glucose POC Glucose 204 H Calcium Phosphorus Magnesium C-Reactive Protein Total Protein Albumin Triglycerides HDL Cholesterol Urine WBC (Auto) 68.0 H Urine Creatinine 106.1 H Urine Total Protein Vancomycin Trough Rheumatoid Factor Complement C4 Crossmatch 09/07/16 09/07/16 09/07/16 04:50 06:19 06:39 WBC RBC Hgb Hct MCV MCH MCHC RDW Plt Count Lymph % (Auto) [place] % (Auto) Lymph # [place] # Seg Neutrophils % Seg Neuts % (Manual) Lymphocytes % (Manual) Monocytes % (Manual) Eosinophils % (Manual) Basophils % (Manual) Seg Neutrophils # Seg Neutrophils # Man Lymphocytes # (Manual) Monocytes # (Manual) Eosinophils # (Manual) Fibrinogen dRVVT Confirm Interp Factor V Activity POC ABG pH 7.457 H POC ABG pCO2 32.1 L POC ABG pO2 76 L Sodium 132 L Potassium Chloride 94.7 L Carbon Dioxide BUN 53 H Creatinine 2.9 H Glucose 151 H POC Glucose 149 H Calcium Phosphorus Magnesium C-Reactive Protein Total Protein Albumin Triglycerides HDL Cholesterol Urine WBC (Auto) Urine Creatinine Urine Total Protein Vancomycin Trough Rheumatoid Factor Complement C4 Crossmatch 09/07/16 09/07/16 09/07/16 09:20 11:43 11:43 WBC 19.4 H RBC Hgb 8.3 L Hct 26.4 L D MCV 72 L D MCH 22 L MCHC RDW 17.9 H Plt Count Lymph % (Auto) 8.5 L [place] % (Auto) Lymph # [place] # 1.0 H Seg Neutrophils % 85.8 H Seg Neuts % (Manual) Lymphocytes % (Manual) Monocytes % (Manual) Eosinophils % (Manual) Basophils % (Manual) Seg Neutrophils # 16.6 H Seg Neutrophils # Man Lymphocytes # (Manual) Monocytes # (Manual) Eosinophils # (Manual) Fibrinogen dRVVT Confirm Interp Factor V Activity POC ABG pH POC ABG pCO2 POC ABG pO2 Sodium 134 L Potassium Chloride 97.2 L Carbon Dioxide 20 L BUN 58 H Creatinine 2.9 H Glucose 147 H POC Glucose Calcium Phosphorus 2.40 L Magnesium 2.40 H C-Reactive Protein Total Protein 5.8 L Albumin 2.2 L Triglycerides HDL Cholesterol Urine WBC (Auto) Urine Creatinine Urine Total Protein Vancomycin Trough Rheumatoid Factor Complement C4 58 H Crossmatch 09/07/16 09/07/16 09/07/16 11:50 16:00 17:31 WBC RBC Hgb Hct MCV MCH MCHC RDW Plt Count Lymph % (Auto) [place] % (Auto) Lymph # [place] # Seg Neutrophils % Seg Neuts % (Manual) Lymphocytes % (Manual) Monocytes % (Manual) Eosinophils % (Manual) Basophils % (Manual) Seg Neutrophils # Seg Neutrophils # Man Lymphocytes # (Manual) Monocytes # (Manual) Eosinophils # (Manual) Fibrinogen dRVVT Confirm Interp Factor V Activity POC ABG pH POC ABG pCO2 POC ABG pO2 158 H Sodium Potassium Chloride Carbon Dioxide BUN Creatinine Glucose POC Glucose 175 H Calcium Phosphorus Magnesium C-Reactive Protein Total Protein Albumin Triglycerides HDL Cholesterol Urine WBC (Auto) Urine Creatinine 66.3 H Urine Total Protein Vancomycin Trough Rheumatoid Factor Complement C4 Crossmatch 09/07/16 09/08/16 09/08/16 23:50 05:46 06:18 WBC 17.8 H RBC 3.58 L Hgb 8.1 L Hct 25.5 L MCV 71 L MCH 23 L MCHC RDW 18.4 H Plt Count Lymph % (Auto) [place] % (Auto) Lymph # [place] # Seg Neutrophils % Seg Neuts % (Manual) 92.0 H Lymphocytes % (Manual) 6.0 L Monocytes % (Manual) Eosinophils % (Manual) Basophils % (Manual) Seg Neutrophils # Seg Neutrophils # Man 16.4 H Lymphocytes # (Manual) 1.1 L Monocytes # (Manual) Eosinophils # (Manual) Fibrinogen dRVVT Confirm Interp Factor V Activity POC ABG pH POC ABG pCO2 34.3 L POC ABG pO2 71 L Sodium Potassium Chloride Carbon Dioxide BUN Creatinine Glucose POC Glucose 216 H Calcium Phosphorus Magnesium C-Reactive Protein Total Protein Albumin Triglycerides HDL Cholesterol Urine WBC (Auto) Urine Creatinine Urine Total Protein Vancomycin Trough Rheumatoid Factor Complement C4 Crossmatch 09/08/16 09/08/16 09/08/16 06:18 06:51 10:55 WBC RBC Hgb Hct MCV MCH MCHC RDW Plt Count Lymph % (Auto) [place] % (Auto) Lymph # [place] # Seg Neutrophils % Seg Neuts % (Manual) Lymphocytes % (Manual) Monocytes % (Manual) Eosinophils % (Manual) Basophils % (Manual) Seg Neutrophils # Seg Neutrophils # Man Lymphocytes # (Manual) Monocytes # (Manual) Eosinophils # (Manual) Fibrinogen dRVVT Confirm Interp Factor V Activity POC ABG pH POC ABG pCO2 POC ABG pO2 Sodium 133 L Potassium Chloride 96.9 L Carbon Dioxide 20 L BUN 63 H Creatinine 2.7 H Glucose 195 H POC Glucose 204 H 169 H Calcium Phosphorus Magnesium C-Reactive Protein Total Protein Albumin Triglycerides HDL Cholesterol Urine WBC (Auto) Urine Creatinine Urine Total Protein Vancomycin Trough Rheumatoid Factor Complement C4 Crossmatch 09/08/16 09/08/16 09/08/16 11:48 11:48 11:48 WBC RBC Hgb Hct MCV MCH MCHC RDW Plt Count Lymph % (Auto) [place] % (Auto) Lymph # [place] # Seg Neutrophils % Seg Neuts % (Manual) Lymphocytes % (Manual) Monocytes % (Manual) Eosinophils % (Manual) Basophils % (Manual) Seg Neutrophils # Seg Neutrophils # Man Lymphocytes # (Manual) Monocytes # (Manual) Eosinophils # (Manual) Fibrinogen 750 H dRVVT Confirm Interp Factor V Activity POC ABG pH POC ABG pCO2 POC ABG pO2 Sodium Potassium Chloride Carbon Dioxide BUN Creatinine Glucose POC Glucose Calcium Phosphorus Magnesium C-Reactive Protein 15.70 H Total Protein Albumin Triglycerides HDL Cholesterol Urine WBC (Auto) Urine Creatinine Urine Total Protein Vancomycin Trough Rheumatoid Factor 24 H Complement C4 Crossmatch 09/08/16 09/08/16 09/09/16 15:35 18:25 00:24 WBC RBC Hgb Hct MCV MCH MCHC RDW Plt Count Lymph % (Auto) [place] % (Auto) Lymph # [place] # Seg Neutrophils % Seg Neuts % (Manual) Lymphocytes % (Manual) Monocytes % (Manual) Eosinophils % (Manual) Basophils % (Manual) Seg Neutrophils # Seg Neutrophils # Man Lymphocytes # (Manual) Monocytes # (Manual) Eosinophils # (Manual) Fibrinogen dRVVT Confirm Interp Factor V Activity 182 H POC ABG pH POC ABG pCO2 POC ABG pO2 Sodium Potassium Chloride Carbon Dioxide BUN Creatinine Glucose POC Glucose 184 H 216 H Calcium Phosphorus Magnesium C-Reactive Protein Total Protein Albumin Triglycerides HDL Cholesterol Urine WBC (Auto) Urine Creatinine Urine Total Protein Vancomycin Trough Rheumatoid Factor Complement C4 Crossmatch 09/09/16 09/09/16 09/09/16 03:00 03:00 04:04 WBC 27.9 H RBC Hgb 8.7 L Hct 28.1 L MCV 72 L MCH 22 L MCHC RDW 18.4 H Plt Count 485 H Lymph % (Auto) [place] % (Auto) Lymph # [place] # Seg Neutrophils % Seg Neuts % (Manual) 77.0 H Lymphocytes % (Manual) 9.0 L Monocytes % (Manual) Eosinophils % (Manual) Basophils % (Manual) Seg Neutrophils # Seg Neutrophils # Man 21.5 H Lymphocytes # (Manual) Monocytes # (Manual) 2.0 H Eosinophils # (Manual) Fibrinogen dRVVT Confirm Interp Factor V Activity POC ABG pH POC ABG pCO2 POC ABG pO2 121 H Sodium 135 L Potassium Chloride 96.3 L Carbon Dioxide 21 L BUN 83 H Creatinine 3.0 H Glucose 135 H POC Glucose Calcium Phosphorus Magnesium C-Reactive Protein Total Protein Albumin Triglycerides HDL Cholesterol Urine WBC (Auto) Urine Creatinine Urine Total Protein Vancomycin Trough Rheumatoid Factor Complement C4 Crossmatch 09/09/16 09/09/16 09/09/16 05:41 11:55 14:13 WBC RBC Hgb Hct MCV MCH MCHC RDW Plt Count Lymph % (Auto) [place] % (Auto) Lymph # [place] # Seg Neutrophils % Seg Neuts % (Manual) Lymphocytes % (Manual) Monocytes % (Manual) Eosinophils % (Manual) Basophils % (Manual) Seg Neutrophils # Seg Neutrophils # Man Lymphocytes # (Manual) Monocytes # (Manual) Eosinophils # (Manual) Fibrinogen dRVVT Confirm Interp Factor V Activity POC ABG pH POC ABG pCO2 POC ABG pO2 Sodium Potassium Chloride Carbon Dioxide BUN Creatinine Glucose POC Glucose 155 H 186 H Calcium Phosphorus Magnesium C-Reactive Protein Total Protein Albumin Triglycerides HDL Cholesterol Urine WBC (Auto) 25.0 H Urine Creatinine Urine Total Protein Vancomycin Trough Rheumatoid Factor Complement C4 Crossmatch 09/09/16 09/09/16 09/10/16 17:33 23:13 05:09 WBC RBC Hgb Hct MCV MCH MCHC RDW Plt Count Lymph % (Auto) [place] % (Auto) Lymph # [place] # Seg Neutrophils % Seg Neuts % (Manual) Lymphocytes % (Manual) Monocytes % (Manual) Eosinophils % (Manual) Basophils % (Manual) Seg Neutrophils # Seg Neutrophils # Man Lymphocytes # (Manual) Monocytes # (Manual) Eosinophils # (Manual) Fibrinogen dRVVT Confirm Interp Factor V Activity POC ABG pH POC ABG pCO2 POC ABG pO2 74 L Sodium Potassium Chloride Carbon Dioxide BUN Creatinine Glucose POC Glucose 211 H 215 H Calcium Phosphorus Magnesium C-Reactive Protein Total Protein Albumin Triglycerides HDL Cholesterol Urine WBC (Auto) Urine Creatinine Urine Total Protein Vancomycin Trough Rheumatoid Factor Complement C4 Crossmatch 09/10/16 09/10/16 09/10/16 05:17 05:17 11:31 WBC 15.8 H RBC 3.25 L Hgb 7.3 L Hct 22.9 L MCV 71 L MCH 23 L MCHC RDW 18.4 H Plt Count Lymph % (Auto) [place] % (Auto) Lymph # [place] # Seg Neutrophils % Seg Neuts % (Manual) 91.0 H Lymphocytes % (Manual) 4.0 L Monocytes % (Manual) Eosinophils % (Manual) Basophils % (Manual) Seg Neutrophils # Seg Neutrophils # Man 14.4 H Lymphocytes # (Manual) 0.6 L Monocytes # (Manual) Eosinophils # (Manual) Fibrinogen dRVVT Confirm Interp Factor V Activity POC ABG pH POC ABG pCO2 POC ABG pO2 Sodium Potassium Chloride Carbon Dioxide 21 L BUN 93 H Creatinine 2.9 H Glucose 146 H POC Glucose 188 H Calcium 8.1 L Phosphorus Magnesium C-Reactive Protein Total Protein Albumin Triglycerides HDL Cholesterol Urine WBC (Auto) Urine Creatinine Urine Total Protein Vancomycin Trough Rheumatoid Factor Complement C4 Crossmatch 09/10/16 09/10/16 09/10/16 13:17 17:20 23:32 WBC RBC Hgb Hct MCV MCH MCHC RDW Plt Count Lymph % (Auto) [place] % (Auto) Lymph # [place] # Seg Neutrophils % Seg Neuts % (Manual) Lymphocytes % (Manual) Monocytes % (Manual) Eosinophils % (Manual) Basophils % (Manual) Seg Neutrophils # Seg Neutrophils # Man Lymphocytes # (Manual) Monocytes # (Manual) Eosinophils # (Manual) Fibrinogen dRVVT Confirm Interp Factor V Activity POC ABG pH POC ABG pCO2 POC ABG pO2 Sodium Potassium Chloride Carbon Dioxide BUN Creatinine Glucose POC Glucose 199 H 186 H Calcium Phosphorus Magnesium C-Reactive Protein Total Protein Albumin Triglycerides HDL Cholesterol Urine WBC (Auto) Urine Creatinine Urine Total Protein Vancomycin Trough Rheumatoid Factor Complement C4 Crossmatch See Detail 09/11/16 09/11/16 09/11/16 05:10 05:10 05:17 WBC 28.4 H RBC Hgb 9.2 L Hct 29.3 L D MCV 73 L MCH 23 L MCHC RDW 18.9 H Plt Count 452 H Lymph % (Auto) [place] % (Auto) Lymph # [place] # Seg Neutrophils % Seg Neuts % (Manual) 89.5 H Lymphocytes % (Manual) 2.0 L Monocytes % (Manual) Eosinophils % (Manual) Basophils % (Manual) Seg Neutrophils # Seg Neutrophils # Man 25.4 H Lymphocytes # (Manual) 0.6 L Monocytes # (Manual) 1.3 H Eosinophils # (Manual) Fibrinogen dRVVT Confirm Interp Factor V Activity POC ABG pH POC ABG pCO2 POC ABG pO2 Sodium 136 L Potassium Chloride Carbon Dioxide 18 L BUN 107 H Creatinine 2.6 H Glucose 187 H POC Glucose 230 H Calcium 8.3 L Phosphorus Magnesium C-Reactive Protein Total Protein Albumin Triglycerides HDL Cholesterol Urine WBC (Auto) Urine Creatinine Urine Total Protein Vancomycin Trough Rheumatoid Factor Complement C4 Crossmatch 09/11/16 09/11/16 09/11/16 05:55 12:02 17:32 WBC RBC Hgb Hct MCV MCH MCHC RDW Plt Count Lymph % (Auto) [place] % (Auto) Lymph # [place] # Seg Neutrophils % Seg Neuts % (Manual) Lymphocytes % (Manual) Monocytes % (Manual) Eosinophils % (Manual) Basophils % (Manual) Seg Neutrophils # Seg Neutrophils # Man Lymphocytes # (Manual) Monocytes # (Manual) Eosinophils # (Manual) Fibrinogen dRVVT Confirm Interp Factor V Activity POC ABG pH POC ABG pCO2 33.8 L POC ABG pO2 Sodium Potassium Chloride Carbon Dioxide BUN Creatinine Glucose POC Glucose 191 H 239 H Calcium Phosphorus Magnesium C-Reactive Protein Total Protein Albumin Triglycerides HDL Cholesterol Urine WBC (Auto) Urine Creatinine Urine Total Protein Vancomycin Trough Rheumatoid Factor Complement C4 Crossmatch 09/11/16 09/12/16 09/12/16 23:52 05:09 05:32 WBC RBC Hgb Hct MCV MCH MCHC RDW Plt Count Lymph % (Auto) [place] % (Auto) Lymph # [place] # Seg Neutrophils % Seg Neuts % (Manual) Lymphocytes % (Manual) Monocytes % (Manual) Eosinophils % (Manual) Basophils % (Manual) Seg Neutrophils # Seg Neutrophils # Man Lymphocytes # (Manual) Monocytes # (Manual) Eosinophils # (Manual) Fibrinogen dRVVT Confirm Interp Factor V Activity POC ABG pH POC ABG pCO2 34.6 L POC ABG pO2 Sodium Potassium Chloride Carbon Dioxide BUN Creatinine Glucose POC Glucose 265 H 184 H Calcium Phosphorus Magnesium C-Reactive Protein Total Protein Albumin Triglycerides HDL Cholesterol Urine WBC (Auto) Urine Creatinine Urine Total Protein Vancomycin Trough Rheumatoid Factor Complement C4 Crossmatch 09/12/16 09/12/16 09/12/16 06:45 06:45 07:22 WBC 31.7 H RBC 3.54 L Hgb 8.3 L Hct 25.9 L MCV 73 L MCH 23 L MCHC RDW 18.9 H Plt Count Lymph % (Auto) [place] % (Auto) Lymph # [place] # Seg Neutrophils % Seg Neuts % (Manual) 88.5 H Lymphocytes % (Manual) 4.5 L Monocytes % (Manual) Eosinophils % (Manual) Basophils % (Manual) Seg Neutrophils # Seg Neutrophils # Man 28.1 H Lymphocytes # (Manual) Monocytes # (Manual) 1.0 H Eosinophils # (Manual) Fibrinogen dRVVT Confirm Interp Factor V Activity POC ABG pH POC ABG pCO2 POC ABG pO2 Sodium Potassium Chloride Carbon Dioxide 20 L BUN 115 H Creatinine 2.7 H Glucose 165 H POC Glucose Calcium 8.0 L Phosphorus Magnesium C-Reactive Protein Total Protein Albumin Triglycerides 217 H HDL Cholesterol Urine WBC (Auto) Urine Creatinine Urine Total Protein Vancomycin Trough Rheumatoid Factor Complement C4 Crossmatch 09/12/16 09/12/16 09/12/16 07:22 09:59 12:21 WBC RBC Hgb Hct MCV MCH MCHC RDW Plt Count Lymph % (Auto) [place] % (Auto) Lymph # [place] # Seg Neutrophils % Seg Neuts % (Manual) Lymphocytes % (Manual) Monocytes % (Manual) Eosinophils % (Manual) Basophils % (Manual) Seg Neutrophils # Seg Neutrophils # Man Lymphocytes # (Manual) Monocytes # (Manual) Eosinophils # (Manual) Fibrinogen dRVVT Confirm Interp Positive H Factor V Activity POC ABG pH POC ABG pCO2 POC ABG pO2 Sodium Potassium Chloride Carbon Dioxide BUN Creatinine Glucose POC Glucose 224 H Calcium Phosphorus Magnesium C-Reactive Protein 1.70 H Total Protein Albumin Triglycerides HDL Cholesterol Urine WBC (Auto) Urine Creatinine Urine Total Protein Vancomycin Trough Rheumatoid Factor Complement C4 Crossmatch 09/12/16 09/12/16 09/13/16 16:51 23:28 04:00 WBC 45.0 H* RBC Hgb 9.4 L Hct MCV 75 L MCH 23 L MCHC RDW 19.0 H Plt Count 470 H Lymph % (Auto) [place] % (Auto) Lymph # [place] # Seg Neutrophils % Seg Neuts % (Manual) 89.0 H Lymphocytes % (Manual) 5.0 L Monocytes % (Manual) Eosinophils % (Manual) Basophils % (Manual) Seg Neutrophils # Seg Neutrophils # Man 40.1 H Lymphocytes # (Manual) Monocytes # (Manual) Eosinophils # (Manual) Fibrinogen dRVVT Confirm Interp Factor V Activity POC ABG pH POC ABG pCO2 POC ABG pO2 Sodium Potassium Chloride Carbon Dioxide BUN Creatinine Glucose POC Glucose 169 H 150 H Calcium Phosphorus Magnesium C-Reactive Protein Total Protein Albumin Triglycerides HDL Cholesterol Urine WBC (Auto) Urine Creatinine Urine Total Protein Vancomycin Trough Rheumatoid Factor Complement C4 Crossmatch 09/13/16 09/13/16 09/13/16 04:00 11:26 17:31 WBC RBC Hgb Hct MCV MCH MCHC RDW Plt Count Lymph % (Auto) [place] % (Auto) Lymph # [place] # Seg Neutrophils % Seg Neuts % (Manual) Lymphocytes % (Manual) Monocytes % (Manual) Eosinophils % (Manual) Basophils % (Manual) Seg Neutrophils # Seg Neutrophils # Man Lymphocytes # (Manual) Monocytes # (Manual) Eosinophils # (Manual) Fibrinogen dRVVT Confirm Interp Factor V Activity POC ABG pH POC ABG pCO2 POC ABG pO2 Sodium Potassium Chloride Carbon Dioxide 20 L BUN 116 H Creatinine 3.0 H Glucose 172 H POC Glucose 140 H 183 H Calcium Phosphorus Magnesium C-Reactive Protein Total Protein 6.2 L Albumin 2.9 L Triglycerides HDL Cholesterol Urine WBC (Auto) Urine Creatinine Urine Total Protein Vancomycin Trough Rheumatoid Factor Complement C4 Crossmatch 09/13/16 09/14/16 09/14/16 23:23 04:06 04:07 WBC 29.4 H RBC Hgb 8.9 L Hct 27.3 L MCV 75 L MCH 24 L MCHC RDW 19.1 H Plt Count Lymph % (Auto) [place] % (Auto) Lymph # [place] # Seg Neutrophils % Seg Neuts % (Manual) 84.0 H Lymphocytes % (Manual) 6.0 L Monocytes % (Manual) 9.0 H Eosinophils % (Manual) Basophils % (Manual) Seg Neutrophils # Seg Neutrophils # Man 24.7 H Lymphocytes # (Manual) Monocytes # (Manual) 2.6 H Eosinophils # (Manual) Fibrinogen dRVVT Confirm Interp Factor V Activity POC ABG pH 7.342 L POC ABG pCO2 POC ABG pO2 116 H Sodium Potassium Chloride Carbon Dioxide BUN Creatinine Glucose POC Glucose 154 H Calcium Phosphorus Magnesium C-Reactive Protein Total Protein Albumin Triglycerides HDL Cholesterol Urine WBC (Auto) Urine Creatinine Urine Total Protein Vancomycin Trough Rheumatoid Factor Complement C4 Crossmatch 09/14/16 09/14/16 09/14/16 04:07 05:29 12:19 WBC RBC Hgb Hct MCV MCH MCHC RDW Plt Count Lymph % (Auto) [place] % (Auto) Lymph # [place] # Seg Neutrophils % Seg Neuts % (Manual) Lymphocytes % (Manual) Monocytes % (Manual) Eosinophils % (Manual) Basophils % (Manual) Seg Neutrophils # Seg Neutrophils # Man Lymphocytes # (Manual) Monocytes # (Manual) Eosinophils # (Manual) Fibrinogen dRVVT Confirm Interp Factor V Activity POC ABG pH POC ABG pCO2 POC ABG pO2 Sodium 136 L Potassium Chloride Carbon Dioxide 18 L BUN 121 H Creatinine 2.8 H Glucose 214 H POC Glucose 239 H 181 H Calcium Phosphorus Magnesium C-Reactive Protein Total Protein Albumin Triglycerides HDL Cholesterol Urine WBC (Auto) Urine Creatinine Urine Total Protein Vancomycin Trough Rheumatoid Factor Complement C4 Crossmatch 09/14/16 09/14/16 09/15/16 18:12 23:37 05:00 WBC 26.1 H RBC 3.05 L Hgb 7.2 L Hct 22.9 L MCV 75 L MCH 24 L MCHC RDW 19.0 H Plt Count Lymph % (Auto) [place] % (Auto) Lymph # [place] # Seg Neutrophils % Seg Neuts % (Manual) Lymphocytes % (Manual) Monocytes % (Manual) Eosinophils % (Manual) Basophils % (Manual) Seg Neutrophils # Seg Neutrophils # Man Lymphocytes # (Manual) Monocytes # (Manual) Eosinophils # (Manual) Fibrinogen dRVVT Confirm Interp Factor V Activity POC ABG pH POC ABG pCO2 POC ABG pO2 Sodium Potassium Chloride Carbon Dioxide BUN Creatinine Glucose POC Glucose 266 H 154 H Calcium Phosphorus Magnesium C-Reactive Protein Total Protein Albumin Triglycerides HDL Cholesterol Urine WBC (Auto) Urine Creatinine Urine Total Protein Vancomycin Trough Rheumatoid Factor Complement C4 Crossmatch 09/15/16 09/15/16 09/15/16 05:00 05:17 12:45 WBC RBC Hgb Hct MCV MCH MCHC RDW Plt Count Lymph % (Auto) [place] % (Auto) Lymph # [place] # Seg Neutrophils % Seg Neuts % (Manual) Lymphocytes % (Manual) Monocytes % (Manual) Eosinophils % (Manual) Basophils % (Manual) Seg Neutrophils # Seg Neutrophils # Man Lymphocytes # (Manual) Monocytes # (Manual) Eosinophils # (Manual) Fibrinogen dRVVT Confirm Interp Factor V Activity POC ABG pH POC ABG pCO2 POC ABG pO2 Sodium Potassium 5.2 H Chloride Carbon Dioxide 18 L BUN 139 H Creatinine 3.7 H Glucose 227 H POC Glucose 226 H 244 H Calcium 8.3 L Phosphorus Magnesium C-Reactive Protein Total Protein Albumin Triglycerides HDL Cholesterol Urine WBC (Auto) Urine Creatinine Urine Total Protein Vancomycin Trough Rheumatoid Factor Complement C4 Crossmatch 09/15/16 09/15/16 09/15/16 14:32 17:33 23:35 WBC RBC Hgb Hct MCV MCH MCHC RDW Plt Count Lymph % (Auto) [place] % (Auto) Lymph # [place] # Seg Neutrophils % Seg Neuts % (Manual) Lymphocytes % (Manual) Monocytes % (Manual) Eosinophils % (Manual) Basophils % (Manual) Seg Neutrophils # Seg Neutrophils # Man Lymphocytes # (Manual) Monocytes # (Manual) Eosinophils # (Manual) Fibrinogen dRVVT Confirm Interp Factor V Activity POC ABG pH POC ABG pCO2 27.7 L POC ABG pO2 120 H Sodium Potassium Chloride Carbon Dioxide BUN Creatinine Glucose POC Glucose 232 H 167 H Calcium Phosphorus Magnesium C-Reactive Protein Total Protein Albumin Triglycerides HDL Cholesterol Urine WBC (Auto) Urine Creatinine Urine Total Protein Vancomycin Trough Rheumatoid Factor Complement C4 Crossmatch 09/16/16 09/16/16 09/16/16 03:58 10:27 10:27 WBC 19.0 H RBC 2.77 L Hgb 6.5 L Hct 20.9 L MCV 76 L MCH 23 L MCHC RDW 19.3 H Plt Count Lymph % (Auto) 11.0 L [place] % (Auto) Lymph # [place] # 1.1 H Seg Neutrophils % 82.5 H Seg Neuts % (Manual) Lymphocytes % (Manual) Monocytes % (Manual) Eosinophils % (Manual) Basophils % (Manual) Seg Neutrophils # 15.7 H Seg Neutrophils # Man Lymphocytes # (Manual) Monocytes # (Manual) Eosinophils # (Manual) Fibrinogen dRVVT Confirm Interp Factor V Activity POC ABG pH POC ABG pCO2 POC ABG pO2 Sodium Potassium Chloride 109.3 H Carbon Dioxide 18 L BUN 139 H Creatinine 4.1 H Glucose 144 H POC Glucose 146 H Calcium 8.1 L Phosphorus Magnesium C-Reactive Protein Total Protein Albumin Triglycerides HDL Cholesterol Urine WBC (Auto) Urine Creatinine Urine Total Protein Vancomycin Trough Rheumatoid Factor Complement C4 Crossmatch 09/16/16 09/16/16 09/16/16 12:04 12:10 13:55 WBC RBC Hgb Hct MCV MCH MCHC RDW Plt Count Lymph % (Auto) [place] % (Auto) Lymph # [place] # Seg Neutrophils % Seg Neuts % (Manual) Lymphocytes % (Manual) Monocytes % (Manual) Eosinophils % (Manual) Basophils % (Manual) Seg Neutrophils # Seg Neutrophils # Man Lymphocytes # (Manual) Monocytes # (Manual) Eosinophils # (Manual) Fibrinogen dRVVT Confirm Interp Factor V Activity POC ABG pH POC ABG pCO2 32.9 L POC ABG pO2 Sodium Potassium Chloride Carbon Dioxide BUN Creatinine Glucose POC Glucose 185 H Calcium Phosphorus Magnesium C-Reactive Protein Total Protein Albumin Triglycerides HDL Cholesterol Urine WBC (Auto) Urine Creatinine Urine Total Protein Vancomycin Trough Rheumatoid Factor Complement C4 Crossmatch See Detail 09/16/16 09/16/16 09/16/16 17:55 19:19 23:48 WBC RBC Hgb Hct MCV MCH MCHC RDW Plt Count Lymph % (Auto) [place] % (Auto) Lymph # [place] # Seg Neutrophils % Seg Neuts % (Manual) Lymphocytes % (Manual) Monocytes % (Manual) Eosinophils % (Manual) Basophils % (Manual) Seg Neutrophils # Seg Neutrophils # Man Lymphocytes # (Manual) Monocytes # (Manual) Eosinophils # (Manual) Fibrinogen dRVVT Confirm Interp Factor V Activity POC ABG pH POC ABG pCO2 POC ABG pO2 Sodium Potassium Chloride Carbon Dioxide BUN Creatinine Glucose POC Glucose 222 H 107 H Calcium Phosphorus Magnesium C-Reactive Protein Total Protein Albumin Triglycerides HDL Cholesterol Urine WBC (Auto) Urine Creatinine 47.4 H Urine Total Protein 16 H Vancomycin Trough Rheumatoid Factor Complement C4 Crossmatch 09/17/16 09/17/16 09/17/16 03:45 03:45 04:55 WBC 19.6 H RBC 3.41 L Hgb 8.5 L Hct 26.7 L MCV 78 L MCH 25 L MCHC RDW 19.9 H Plt Count Lymph % (Auto) 9.3 L [place] % (Auto) Lymph # [place] # 1.2 H Seg Neutrophils % 83.9 H Seg Neuts % (Manual) Lymphocytes % (Manual) Monocytes % (Manual) Eosinophils % (Manual) Basophils % (Manual) Seg Neutrophils # 16.4 H Seg Neutrophils # Man Lymphocytes # (Manual) Monocytes # (Manual) Eosinophils # (Manual) Fibrinogen dRVVT Confirm Interp Factor V Activity POC ABG pH POC ABG pCO2 POC ABG pO2 Sodium 146 H Potassium 5.1 H Chloride 110.9 H Carbon Dioxide 16 L BUN 146 H Creatinine 4.0 H Glucose 108 H POC Glucose 133 H Calcium Phosphorus Magnesium 3.00 H C-Reactive Protein Total Protein Albumin Triglycerides HDL Cholesterol Urine WBC (Auto) Urine Creatinine Urine Total Protein Vancomycin Trough Rheumatoid Factor Complement C4 Crossmatch 09/17/16 09/17/16 09/17/16 11:15 17:33 23:47 WBC RBC Hgb Hct MCV MCH MCHC RDW Plt Count Lymph % (Auto) [place] % (Auto) Lymph # [place] # Seg Neutrophils % Seg Neuts % (Manual) Lymphocytes % (Manual) Monocytes % (Manual) Eosinophils % (Manual) Basophils % (Manual) Seg Neutrophils # Seg Neutrophils # Man Lymphocytes # (Manual) Monocytes # (Manual) Eosinophils # (Manual) Fibrinogen dRVVT Confirm Interp Factor V Activity POC ABG pH POC ABG pCO2 POC ABG pO2 Sodium Potassium Chloride Carbon Dioxide BUN Creatinine Glucose POC Glucose 176 H 246 H 148 H Calcium Phosphorus Magnesium C-Reactive Protein Total Protein Albumin Triglycerides HDL Cholesterol Urine WBC (Auto) Urine Creatinine Urine Total Protein Vancomycin Trough Rheumatoid Factor Complement C4 Crossmatch 09/18/16 09/18/16 09/18/16 05:33 08:31 08:31 WBC 18.0 H RBC 3.17 L Hgb 9.0 L Hct 25.7 L MCV MCH MCHC 35 H RDW 20.4 H Plt Count Lymph % (Auto) [place] % (Auto) Lymph # [place] # Seg Neutrophils % Seg Neuts % (Manual) Lymphocytes % (Manual) Monocytes % (Manual) Eosinophils % (Manual) Basophils % (Manual) Seg Neutrophils # Seg Neutrophils # Man Lymphocytes # (Manual) Monocytes # (Manual) Eosinophils # (Manual) Fibrinogen dRVVT Confirm Interp Factor V Activity POC ABG pH POC ABG pCO2 POC ABG pO2 Sodium Potassium Chloride Carbon Dioxide 15 L BUN 124 H Creatinine 3.8 H Glucose POC Glucose 120 H Calcium 8.1 L Phosphorus Magnesium C-Reactive Protein Total Protein Albumin Triglycerides HDL Cholesterol Urine WBC (Auto) Urine Creatinine Urine Total Protein Vancomycin Trough Rheumatoid Factor Complement C4 Crossmatch 09/18/16 09/18/16 09/18/16 12:03 15:34 17:50 WBC RBC Hgb Hct MCV MCH MCHC RDW Plt Count Lymph % (Auto) [place] % (Auto) Lymph # [place] # Seg Neutrophils % Seg Neuts % (Manual) Lymphocytes % (Manual) Monocytes % (Manual) Eosinophils % (Manual) Basophils % (Manual) Seg Neutrophils # Seg Neutrophils # Man Lymphocytes # (Manual) Monocytes # (Manual) Eosinophils # (Manual) Fibrinogen dRVVT Confirm Interp Factor V Activity POC ABG pH POC ABG pCO2 25.7 L POC ABG pO2 66 L Sodium Potassium Chloride Carbon Dioxide BUN Creatinine Glucose POC Glucose 156 H 220 H Calcium Phosphorus Magnesium C-Reactive Protein Total Protein Albumin Triglycerides HDL Cholesterol Urine WBC (Auto) Urine Creatinine Urine Total Protein Vancomycin Trough Rheumatoid Factor Complement C4 Crossmatch 09/19/16 09/19/16 09/19/16 06:21 09:50 09:50 WBC 17.1 H RBC 3.49 L Hgb 9.0 L Hct 28.1 L MCV MCH 26 L MCHC RDW 20.8 H Plt Count Lymph % (Auto) 11.5 L [place] % (Auto) 7.5 H Lymph # [place] # 1.3 H Seg Neutrophils % 79.8 H Seg Neuts % (Manual) Lymphocytes % (Manual) Monocytes % (Manual) Eosinophils % (Manual) Basophils % (Manual) Seg Neutrophils # 13.7 H Seg Neutrophils # Man Lymphocytes # (Manual) Monocytes # (Manual) Eosinophils # (Manual) Fibrinogen dRVVT Confirm Interp Factor V Activity POC ABG pH POC ABG pCO2 POC ABG pO2 Sodium Potassium Chloride 108.6 H Carbon Dioxide 15 L BUN 125 H Creatinine 4.1 H Glucose 124 H POC Glucose 119 H Calcium Phosphorus Magnesium C-Reactive Protein Total Protein Albumin Triglycerides HDL Cholesterol Urine WBC (Auto) Urine Creatinine Urine Total Protein Vancomycin Trough Rheumatoid Factor Complement C4 Crossmatch 09/19/16 09/19/16 09/19/16 11:25 17:53 23:36 WBC RBC Hgb Hct MCV MCH MCHC RDW Plt Count Lymph % (Auto) [place] % (Auto) Lymph # [place] # Seg Neutrophils % Seg Neuts % (Manual) Lymphocytes % (Manual) Monocytes % (Manual) Eosinophils % (Manual) Basophils % (Manual) Seg Neutrophils # Seg Neutrophils # Man Lymphocytes # (Manual) Monocytes # (Manual) Eosinophils # (Manual) Fibrinogen dRVVT Confirm Interp Factor V Activity POC ABG pH POC ABG pCO2 POC ABG pO2 Sodium Potassium Chloride Carbon Dioxide BUN Creatinine Glucose POC Glucose 160 H 245 H 121 H Calcium Phosphorus Magnesium C-Reactive Protein Total Protein Albumin Triglycerides HDL Cholesterol Urine WBC (Auto) Urine Creatinine Urine Total Protein Vancomycin Trough Rheumatoid Factor Complement C4 Crossmatch 09/20/16 09/20/16 09/20/16 04:10 04:10 04:10 WBC 17.0 H RBC 3.21 L Hgb 8.2 L Hct 25.5 L MCV MCH 26 L MCHC RDW 20.9 H Plt Count Lymph % (Auto) [place] % (Auto) Lymph # [place] # Seg Neutrophils % Seg Neuts % (Manual) Lymphocytes % (Manual) Monocytes % (Manual) Eosinophils % (Manual) Basophils % (Manual) Seg Neutrophils # Seg Neutrophils # Man Lymphocytes # (Manual) Monocytes # (Manual) Eosinophils # (Manual) Fibrinogen dRVVT Confirm Interp Factor V Activity POC ABG pH POC ABG pCO2 POC ABG pO2 Sodium Potassium Chloride 111.0 H Carbon Dioxide 16 L BUN 129 H Creatinine 3.7 H Glucose 115 H POC Glucose Calcium 8.2 L Phosphorus Magnesium C-Reactive Protein Total Protein Albumin Triglycerides 243 H HDL Cholesterol Urine WBC (Auto) Urine Creatinine Urine Total Protein Vancomycin Trough Rheumatoid Factor Complement C4 Crossmatch 09/20/16 09/20/16 09/20/16 05:40 11:52 16:50 WBC RBC Hgb Hct MCV MCH MCHC RDW Plt Count Lymph % (Auto) [place] % (Auto) Lymph # [place] # Seg Neutrophils % Seg Neuts % (Manual) Lymphocytes % (Manual) Monocytes % (Manual) Eosinophils % (Manual) Basophils % (Manual) Seg Neutrophils # Seg Neutrophils # Man Lymphocytes # (Manual) Monocytes # (Manual) Eosinophils # (Manual) Fibrinogen dRVVT Confirm Interp Factor V Activity POC ABG pH POC ABG pCO2 POC ABG pO2 Sodium Potassium Chloride Carbon Dioxide BUN Creatinine Glucose POC Glucose 131 H 183 H 236 H Calcium Phosphorus Magnesium C-Reactive Protein Total Protein Albumin Triglycerides HDL Cholesterol Urine WBC (Auto) Urine Creatinine Urine Total Protein Vancomycin Trough Rheumatoid Factor Complement C4 Crossmatch 09/20/16 09/21/16 09/21/16 23:51 03:30 04:44 WBC RBC Hgb Hct MCV MCH MCHC RDW Plt Count Lymph % (Auto) [place] % (Auto) Lymph # [place] # Seg Neutrophils % Seg Neuts % (Manual) Lymphocytes % (Manual) Monocytes % (Manual) Eosinophils % (Manual) Basophils % (Manual) Seg Neutrophils # Seg Neutrophils # Man Lymphocytes # (Manual) Monocytes # (Manual) Eosinophils # (Manual) Fibrinogen dRVVT Confirm Interp Factor V Activity POC ABG pH POC ABG pCO2 POC ABG pO2 Sodium Potassium Chloride Carbon Dioxide BUN Creatinine Glucose POC Glucose 114 H 141 H Calcium Phosphorus Magnesium 2.70 H C-Reactive Protein Total Protein Albumin Triglycerides HDL Cholesterol Urine WBC (Auto) Urine Creatinine Urine Total Protein Vancomycin Trough Rheumatoid Factor Complement C4 Crossmatch 09/21/16 09/21/1609/21/17 07:45 07:45 10:01 WBC 13.8 H RBC 2.94 L Hgb 7.5 L Hct 23.5 L MCV MCH 26 L MCHC RDW 21.2 H Plt Count Lymph % (Auto) 6.9 L [place] % (Auto) 9.4 H Lymph # 0.9 L [place] # 1.3 H Seg Neutrophils % 83.2 H Seg Neuts % (Manual) Lymphocytes % (Manual) Monocytes % (Manual) Eosinophils % (Manual) Basophils % (Manual) Seg Neutrophils # 11.5 H Seg Neutrophils # Man Lymphocytes # (Manual) Monocytes # (Manual) Eosinophils # (Manual) Fibrinogen dRVVT Confirm Interp Factor V Activity POC ABG pH 7.308 L POC ABG pCO2 31.9 L POC ABG pO2 148 H Sodium 147 H Potassium Chloride 114.2 H Carbon Dioxide 15 L BUN 120 H Creatinine 3.9 H Glucose 156 H POC Glucose Calcium 8.2 L Phosphorus Magnesium C-Reactive Protein Total Protein Albumin Triglycerides HDL Cholesterol Urine WBC (Auto) Urine Creatinine Urine Total Protein Vancomycin Trough Rheumatoid Factor Complement C4 Crossmatch 09/21/16 09/21/16 09/21/16 12:00 12:03 13:00 WBC RBC Hgb Hct MCV MCH MCHC RDW Plt Count Lymph % (Auto) [place] % (Auto) Lymph # [place] # Seg Neutrophils % Seg Neuts % (Manual) Lymphocytes % (Manual) Monocytes % (Manual) Eosinophils % (Manual) Basophils % (Manual) Seg Neutrophils # Seg Neutrophils # Man Lymphocytes # (Manual) Monocytes # (Manual) Eosinophils # (Manual) Fibrinogen dRVVT Confirm Interp Factor V Activity POC ABG pH POC ABG pCO2 POC ABG pO2 Sodium Potassium Chloride Carbon Dioxide BUN Creatinine Glucose POC Glucose 163 H Calcium Phosphorus Magnesium C-Reactive Protein Total Protein Albumin Triglycerides HDL Cholesterol Urine WBC (Auto) Urine Creatinine 54.8 H Urine Total Protein Vancomycin Trough 2.3 L Rheumatoid Factor Complement C4 Crossmatch 09/21/16 09/21/16 09/22/16 16:51 23:17 06:27 WBC RBC Hgb Hct MCV MCH MCHC RDW Plt Count Lymph % (Auto) [place] % (Auto) Lymph # [place] # Seg Neutrophils % Seg Neuts % (Manual) Lymphocytes % (Manual) Monocytes % (Manual) Eosinophils % (Manual) Basophils % (Manual) Seg Neutrophils # Seg Neutrophils # Man Lymphocytes # (Manual) Monocytes # (Manual) Eosinophils # (Manual) Fibrinogen dRVVT Confirm Interp Factor V Activity POC ABG pH POC ABG pCO2 POC ABG pO2 Sodium Potassium Chloride Carbon Dioxide BUN Creatinine Glucose POC Glucose 206 H 114 H 115 H Calcium Phosphorus Magnesium C-Reactive Protein Total Protein Albumin Triglycerides HDL Cholesterol Urine WBC (Auto) Urine Creatinine Urine Total Protein Vancomycin Trough Rheumatoid Factor Complement C4 Crossmatch 09/22/16 09/22/16 09/22/16 07:50 07:50 12:00 WBC 17.8 H RBC 3.04 L Hgb 8.0 L Hct 24.7 L MCV MCH 26 L MCHC RDW 21.6 H Plt Count Lymph % (Auto) [place] % (Auto) Lymph # [place] # Seg Neutrophils % Seg Neuts % (Manual) Lymphocytes % (Manual) Monocytes % (Manual) Eosinophils % (Manual) Basophils % (Manual) Seg Neutrophils # Seg Neutrophils # Man Lymphocytes # (Manual) Monocytes # (Manual) Eosinophils # (Manual) Fibrinogen dRVVT Confirm Interp Factor V Activity POC ABG pH POC ABG pCO2 POC ABG pO2 Sodium 150 H Potassium Chloride 118.2 H Carbon Dioxide 14 L BUN 111 H Creatinine 3.7 H Glucose 157 H POC Glucose 183 H Calcium Phosphorus Magnesium C-Reactive Protein Total Protein Albumin Triglycerides HDL Cholesterol Urine WBC (Auto) Urine Creatinine Urine Total Protein Vancomycin Trough Rheumatoid Factor Complement C4 Crossmatch 09/22/16 09/22/16 09/23/16 17:29 23:10 05:00 WBC 19.2 H RBC 3.13 L Hgb 8.0 L Hct 25.2 L MCV MCH 26 L MCHC RDW 22.1 H Plt Count Lymph % (Auto) [place] % (Auto) Lymph # [place] # Seg Neutrophils % Seg Neuts % (Manual) 92.0 H Lymphocytes % (Manual) 3.0 L Monocytes % (Manual) Eosinophils % (Manual) Basophils % (Manual) Seg Neutrophils # Seg Neutrophils # Man 17.7 H Lymphocytes # (Manual) 0.6 L Monocytes # (Manual) Eosinophils # (Manual) Fibrinogen dRVVT Confirm Interp Factor V Activity POC ABG pH POC ABG pCO2 POC ABG pO2 Sodium Potassium Chloride Carbon Dioxide BUN Creatinine Glucose POC Glucose 197 H 169 H Calcium Phosphorus Magnesium C-Reactive Protein Total Protein Albumin Triglycerides HDL Cholesterol Urine WBC (Auto) Urine Creatinine Urine Total Protein Vancomycin Trough Rheumatoid Factor Complement C4 Crossmatch 09/23/16 09/23/16 09/23/16 05:00 05:00 05:10 WBC RBC Hgb Hct MCV MCH MCHC RDW Plt Count Lymph % (Auto) [place] % (Auto) Lymph # [place] # Seg Neutrophils % Seg Neuts % (Manual) Lymphocytes % (Manual) Monocytes % (Manual) Eosinophils % (Manual) Basophils % (Manual) Seg Neutrophils # Seg Neutrophils # Man Lymphocytes # (Manual) Monocytes # (Manual) Eosinophils # (Manual) Fibrinogen dRVVT Confirm Interp Factor V Activity POC ABG pH POC ABG pCO2 POC ABG pO2 Sodium 147 H Potassium 3.2 L Chloride 115.7 H Carbon Dioxide 13 L BUN 111 H Creatinine 3.8 H Glucose 194 H POC Glucose 188 H Calcium 7.3 L D Phosphorus Magnesium C-Reactive Protein 3.20 H Total Protein Albumin Triglycerides HDL Cholesterol Urine WBC (Auto) Urine Creatinine Urine Total Protein Vancomycin Trough Rheumatoid Factor Complement C4 Crossmatch 09/23/16 09/23/16 09/23/16 11:37 12:29 18:01 WBC RBC Hgb Hct MCV MCH MCHC RDW Plt Count Lymph % (Auto) [place] % (Auto) Lymph # [place] # Seg Neutrophils % Seg Neuts % (Manual) Lymphocytes % (Manual) Monocytes % (Manual) Eosinophils % (Manual) Basophils % (Manual) Seg Neutrophils # Seg Neutrophils # Man Lymphocytes # (Manual) Monocytes # (Manual) Eosinophils # (Manual) Fibrinogen dRVVT Confirm Interp Factor V Activity POC ABG pH POC ABG pCO2 18.9 L POC ABG pO2 143 H Sodium Potassium Chloride Carbon Dioxide BUN Creatinine Glucose POC Glucose 153 H 108 H Calcium Phosphorus Magnesium C-Reactive Protein Total Protein Albumin Triglycerides HDL Cholesterol Urine WBC (Auto) Urine Creatinine Urine Total Protein Vancomycin Trough Rheumatoid Factor Complement C4 Crossmatch 09/23/16 09/23/16 09/24/16 21:19 23:43 05:16 WBC RBC Hgb Hct MCV MCH MCHC RDW Plt Count Lymph % (Auto) [place] % (Auto) Lymph # [place] # Seg Neutrophils % Seg Neuts % (Manual) Lymphocytes % (Manual) Monocytes % (Manual) Eosinophils % (Manual) Basophils % (Manual) Seg Neutrophils # Seg Neutrophils # Man Lymphocytes # (Manual) Monocytes # (Manual) Eosinophils # (Manual) Fibrinogen dRVVT Confirm Interp Factor V Activity POC ABG pH POC ABG pCO2 17.3 L POC ABG pO2 112 H Sodium Potassium Chloride Carbon Dioxide BUN Creatinine Glucose POC Glucose 143 H 164 H Calcium Phosphorus Magnesium C-Reactive Protein Total Protein Albumin Triglycerides HDL Cholesterol Urine WBC (Auto) Urine Creatinine Urine Total Protein Vancomycin Trough Rheumatoid Factor Complement C4 Crossmatch 09/24/16 09/24/16 09/24/16 05:21 11:58 17:06 WBC RBC Hgb Hct MCV MCH MCHC RDW Plt Count Lymph % (Auto) [place] % (Auto) Lymph # [place] # Seg Neutrophils % Seg Neuts % (Manual) Lymphocytes % (Manual) Monocytes % (Manual) Eosinophils % (Manual) Basophils % (Manual) Seg Neutrophils # Seg Neutrophils # Man Lymphocytes # (Manual) Monocytes # (Manual) Eosinophils # (Manual) Fibrinogen dRVVT Confirm Interp Factor V Activity POC ABG pH POC ABG pCO2 POC ABG pO2 Sodium Potassium Chloride Carbon Dioxide 10 L BUN 103 H Creatinine 4.3 H Glucose 163 H POC Glucose 173 H 167 H Calcium 6.5 L Phosphorus Magnesium C-Reactive Protein Total Protein Albumin Triglycerides HDL Cholesterol Urine WBC (Auto) Urine Creatinine Urine Total Protein Vancomycin Trough Rheumatoid Factor Complement C4 Crossmatch 09/24/16 09/24/16 09/24/16 20:15 21:02 21:14 WBC RBC Hgb Hct MCV MCH MCHC RDW Plt Count Lymph % (Auto) [place] % (Auto) Lymph # [place] # Seg Neutrophils % Seg Neuts % (Manual) Lymphocytes % (Manual) Monocytes % (Manual) Eosinophils % (Manual) Basophils % (Manual) Seg Neutrophils # Seg Neutrophils # Man Lymphocytes # (Manual) Monocytes # (Manual) Eosinophils # (Manual) Fibrinogen dRVVT Confirm Interp Factor V Activity POC ABG pH 7.288 L POC ABG pCO2 30.2 L 21.5 L 24.5 L POC ABG pO2 32 L 39 L 36 L Sodium Potassium Chloride Carbon Dioxide BUN Creatinine Glucose POC Glucose Calcium Phosphorus Magnesium C-Reactive Protein Total Protein Albumin Triglycerides HDL Cholesterol Urine WBC (Auto) Urine Creatinine Urine Total Protein Vancomycin Trough Rheumatoid Factor Complement C4 Crossmatch 09/24/16 09/25/16 09/25/16 23:48 04:20 04:20 WBC RBC 2.58 L Hgb 7.0 L Hct 21.0 L MCV MCH 27 L MCHC RDW 23.8 H Plt Count Lymph % (Auto) [place] % (Auto) Lymph # [place] # Seg Neutrophils % Seg Neuts % (Manual) Lymphocytes % (Manual) 12.0 L Monocytes % (Manual) Eosinophils % (Manual) 7.0 H Basophils % (Manual) 2.0 H Seg Neutrophils # Seg Neutrophils # Man Lymphocytes # (Manual) 0.9 L Monocytes # (Manual) Eosinophils # (Manual) 0.5 H Fibrinogen dRVVT Confirm Interp Factor V Activity POC ABG pH POC ABG pCO2 POC ABG pO2 Sodium Potassium Chloride Carbon Dioxide 15 L BUN 72 H Creatinine 3.8 H Glucose POC Glucose 109 H Calcium 6.0 L Phosphorus Magnesium C-Reactive Protein Total Protein Albumin Triglycerides HDL Cholesterol Urine WBC (Auto) Urine Creatinine Urine Total Protein Vancomycin Trough Rheumatoid Factor Complement C4 Crossmatch 09/25/16 09/25/16 09/25/16 04:20 04:57 08:02 WBC RBC Hgb Hct MCV MCH MCHC RDW Plt Count Lymph % (Auto) [place] % (Auto) Lymph # [place] # Seg Neutrophils % Seg Neuts % (Manual) Lymphocytes % (Manual) Monocytes % (Manual) Eosinophils % (Manual) Basophils % (Manual) Seg Neutrophils # Seg Neutrophils # Man Lymphocytes # (Manual) Monocytes # (Manual) Eosinophils # (Manual) Fibrinogen dRVVT Confirm Interp Factor V Activity POC ABG pH POC ABG pCO2 24.7 L POC ABG pO2 152 H Sodium Potassium Chloride Carbon Dioxide BUN Creatinine Glucose POC Glucose 113 H Calcium Phosphorus 4.60 H Magnesium 1.60 L C-Reactive Protein Total Protein Albumin Triglycerides HDL Cholesterol Urine WBC (Auto) Urine Creatinine Urine Total Protein Vancomycin Trough Rheumatoid Factor Complement C4 Crossmatch 09/25/16 10:30 WBC RBC Hgb Hct MCV MCH MCHC RDW Plt Count Lymph % (Auto) [place] % (Auto) Lymph # [place] # Seg Neutrophils % Seg Neuts % (Manual) Lymphocytes % (Manual) Monocytes % (Manual) Eosinophils % (Manual) Basophils % (Manual) Seg Neutrophils # Seg Neutrophils # Man Lymphocytes # (Manual) Monocytes # (Manual) Eosinophils # (Manual) Fibrinogen dRVVT Confirm Interp Factor V Activity POC ABG pH POC ABG pCO2 POC ABG pO2 Sodium Potassium Chloride Carbon Dioxide BUN Creatinine Glucose POC Glucose Calcium Phosphorus Magnesium C-Reactive Protein Total Protein Albumin Triglycerides HDL Cholesterol Urine WBC (Auto) Urine Creatinine Urine Total Protein Vancomycin Trough Rheumatoid Factor Complement C4 Crossmatch See Detail Chest x-ray: image reviewed Allied health notes reviewed: RT
[2016-09-25] MEDS: TORADOL IV PRN (11:13)
--- NOTE | 2016-09-25 11:45 | Progress Note ---
Assessment and Plan Assessment: Attempted electrical cardioversion as patient's heart rate was in the 160s with the underlying rhythm atrial fibrillation electrical cardioversion was unsuccessful patient remained in atrial fibrillation though her heart rate mildly improved Acute hypoxic respiratory failure on mechanical ventilation s/p trach and PEG Acute left MCA CVA echocardiogram demonstrates at least moderate LVH but a normal LV systolic function, EF 50-55%. no thrombus visualized on transthoracic echocardiogram. Hypertension Now patient is hypotensive Acute on chronic renal failure AG metabolic acidosis on bicarbonate drip Leukocytosis Likely sepsis Diabetes mellitus Anemia requiring transfusion of PRBCs Paroxysmal Afib Now with rapid ventricular rate despite amiodarone, failed electrical cardioversion Recommendations: Supportive care This is extremely guarded Subjective Date of service: 09/25/16 Principal diagnosis: Acute resp failure on MVS; S/P Acute CVA; Acute Encephalopathy; JUANITA Interval history: Gen. condition the same Objective Vital Signs Temp Pulse Pulse Pulse Pulse Resp Resp 09/25/16 08:07 134 H 09/25/16 08:00 103.1 F H 137 H 29 H 09/25/16 07:47 135 H 09/25/16 07:45 139 H 40 H 09/25/16 07:30 144 H 40 H 09/25/16 07:15 139 H 37 H 09/25/16 07:00 139 H 36 H 09/25/16 06:46 132 H 25 H 09/25/16 06:30 147 H 37 H 09/25/16 06:15 136 H 36 H 09/25/16 06:00 151 H 36 H 09/25/16 05:45 138 H 40 H 09/25/16 05:30 148 H 39 H 09/25/16 05:15 141 H 36 H 09/25/16 05:00 137 H 39 H 09/25/16 04:45 138 H 39 H 09/25/16 04:35 151 H 09/25/16 04:30 163 H 38 H 09/25/16 04:16 169 H 37 H 09/25/16 04:00 148 H 35 H 09/25/16 03:52 103.1 F H 09/25/16 03:45 143 H 37 H 09/25/16 03:30 148 H 43 H 09/25/16 03:15 140 H 37 H 09/25/16 03:00 153 H 43 H 09/25/16 02:45 139 H 42 H 09/25/16 02:30 146 H 37 H 09/25/16 02:16 140 H 41 H 09/25/16 02:00 135 H 41 H 09/25/16 01:45 141 H 36 H 09/25/16 01:30 138 H 39 H 09/25/16 01:15 142 H 45 H 09/25/16 01:00 144 H 35 H 09/25/16 00:45 137 H 43 H 09/25/16 00:30 141 H 45 H 09/25/16 00:15 141 H 47 H 09/25/16 00:00 101.7 F H 141 H 156 H 46 H 35 H 09/24/16 23:45 132 H 34 H 09/24/16 23:40 09/24/16 23:36 133 H 33 H 09/24/16 23:30 148 H 43 H 09/24/16 23:15 140 H 44 H 09/24/16 23:00 140 H 37 H 09/24/16 22:46 146 H 42 H 09/24/16 22:30 140 H 48 H 09/24/16 22:15 140 H 45 H 09/24/16 22:00 133 H 43 H 09/24/16 21:46 130 H 42 H 09/24/16 21:30 139 H 43 H 09/24/16 21:18 09/24/16 21:16 133 H 45 H 09/24/16 21:00 135 H 38 H 09/24/16 20:45 137 H 37 H 09/24/16 20:30 137 H 32 H 09/24/16 20:15 125 H 32 H 09/24/16 20:00 133 H 32 H 09/24/16 19:45 130 H 31 H 09/24/16 19:30 131 H 34 H 09/24/16 19:26 102.5 F H 09/24/16 19:15 126 H 21 09/24/16 19:11 118 H 09/24/16 19:00 118 H 24 35 H 09/24/16 18:45 101 H 19 09/24/16 18:30 114 H 17 09/24/16 18:16 119 H 37 H 09/24/16 18:00 131 H 39 H 09/24/16 17:46 140 H 41 H 09/24/16 17:36 100.2 F H 09/24/16 17:30 139 H 41 H 09/24/16 17:16 137 H 35 H 09/24/16 17:00 138 H 37 H 09/24/16 16:46 137 H 38 H 09/24/16 16:30 99.4 F 138 H 33 H 09/24/16 16:16 136 H 35 H 09/24/16 16:15 136 H 09/24/16 16:00 100.2 F H 142 H 136 H 134 H 22 09/24/16 15:46 124 H 18 09/24/16 15:45 124 H 09/24/16 15:40 128 H 09/24/16 15:30 122 H 13 09/24/16 15:16 130 H 19 09/24/16 15:15 127 H 09/24/16 15:00 126 H 30 H 09/24/16 14:45 124 H 29 H 09/24/16 14:30 99.7 F H 123 H 29 H 09/24/16 14:15 126 H 30 H 09/24/16 14:02 120 H 09/24/16 14:00 126 H 35 H 09/24/16 13:45 125 H 30 H 09/24/16 13:31 120 H 09/24/16 13:30 126 H 32 H 09/24/16 13:16 128 H 30 H 09/24/16 13:00 127 H 33 H 09/24/16 12:45 125 H 31 H 09/24/16 12:30 125 H 29 H 09/24/16 12:16 124 H 31 H 09/24/16 12:00 101.4 F H 126 H 125 H 32 H 09/24/16 11:46 125 H 33 H 09/24/16 11:45 125 H BP Pulse Ox Pulse Ox Pulse Ox 09/25/16 08:07 131/82 100 09/25/16 08:00 131/82 100 09/25/16 07:47 132/80 100 09/25/16 07:45 135/76 100 09/25/16 07:30 132/80 100 09/25/16 07:15 130/80 100 09/25/16 07:00 136/75 98 09/25/16 06:46 90/51 100 09/25/16 06:30 127/64 100 09/25/16 06:15 135/85 100 09/25/16 06:00 146/81 100 09/25/16 05:45 136/82 100 09/25/16 05:30 154/82 100 09/25/16 05:15 140/82 100 09/25/16 05:00 159/81 100 09/25/16 04:45 143/74 100 09/25/16 04:35 09/25/16 04:30 134/66 100 09/25/16 04:16 135/87 100 09/25/16 04:00 135/87 100 09/25/16 03:52 09/25/16 03:45 135/82 96 09/25/16 03:30 145/82 100 09/25/16 03:15 141/84 100 09/25/16 03:00 156/87 100 09/25/16 02:45 151/85 100 09/25/16 02:30 154/89 100 09/25/16 02:16 165/58 100 09/25/16 02:00 142/70 100 09/25/16 01:45 137/74 100 09/25/16 01:30 134/68 95 09/25/16 01:15 130/58 100 09/25/16 01:00 137/60 100 09/25/16 00:45 139/56 100 09/25/16 00:30 136/58 100 09/25/16 00:15 141/47 100 09/25/16 00:00 126/57 99 09/24/16 23:45 78/41 100 09/24/16 23:40 100 09/24/16 23:36 130/62 100 09/24/16 23:30 130/62 100 09/24/16 23:15 127/49 100 09/24/16 23:00 142/67 100 09/24/16 22:46 177/48 100 09/24/16 22:30 152/37 100 09/24/16 22:15 130/69 100 09/24/16 22:00 152/69 100 09/24/16 21:46 96/33 100 09/24/16 21:30 106/36 100 09/24/16 21:18 100 09/24/16 21:16 132/72 100 09/24/16 21:00 100 09/24/16 20:45 114/88 99 05/ 20:30 106/79 98 05/ 20:15 101/74 100 05 20:00 123/57 99 05 19:45 123/57 99 05/17 19:30 101/56 100 05 19:26 05 19:15 136/46 99 05/ 19:11 94/50 95 05 19:00 94/50 100 05 18:45 78/32 97 05 18:30 86/33 96 05 18:16 118/39 97 05 18:00 54/25 99 05 17:46 59/20 94 05 17:36 05 17:30 120/66 05 17:16 111/66 05 17:00 113/42 96 05 16:46 101/78 92 05 16:30 104/74 96 94 05 16:16 99/45 97 05 16:15 99/45 05 16:00 120/66 95 05 15:46 81/44 91 05 15:45 81/44 05 15:40 104/49 05 15:30 104/50 0517 15:16 91/43 0517 15:15 81/46 0517 15:00 93/40 05 14:45 104/50 0517 14:30 104/59 93 05 14:15 101/54 05 14:02 05 14:00 106/41 05 13:45 111/45 05 13:31 05 13:30 97/48 05 13:16 94/70 05 13:00 107/52 0517 12:45 111/48 05/17 12:30 113/44 05 12:16 107/47 05 12:00 107/60 09/24/16 11:46 101/49 09/24/16 11:45 89/59 - Physical Examination Narrative exam: GEN: Intubated HEENT: No JVD is evident NECK: Supple CVS: Heart sounds appear normal no murmur noted LUNGS/CHEST: Clear to auscultation ABD: Soft nontender Extremities: No edema noted PSY: Appears calm General: Other (intubated via trach) Neck: Positive: neck supple Abdomen: Positive: Soft Extremities: Present: normal - Labs and Meds CBC 09/25/16 Range/Units 04:20 WBC 7.3 (4.5-11.0) K/mm3 RBC 2.58 L (3.65-5.03) M/mm3 Hgb 7.0 L (10.1-14.3) gm/dl Hct 21.0 L (30.3-42.9) % Plt Count 249 (140-440) K/mm3 Comprehensive Metabolic Panel 09/25/16 Range/Units 04:20 Sodium 137 (137-145) mmol/L Potassium 4.6 (3.6-5.0) mmol/L Chloride 102.9 (98-107) mmol/L Carbon Dioxide 15 L (22-30) mmol/L BUN 72 H (7-17) mg/dL Creatinine 3.8 H (0.7-1.2) mg/dL Glucose 98 (65-100) mg/dL Calcium 6.0 L (8.4-10.2) mg/dL - Imaging and Cardiology EKG: image reviewed - Allied health notes Allied health notes reviewed: RT
[2016-09-25] MEDS ORDERED: NACL 0.9% 100 ML IV PRN (12:14)
--- NOTE | 2016-09-25 13:08 | Progress Note ---
Assessment and Plan Assessment * Oliguric acute kidney injury on CKD , most likely secondary to ATN- baseline SCr 1.7mg/dL * Acute CVA - left MCA with midline shift * Acute hypoxic respiratory failure * Accelerated hypertension * Left renal artery stenosis * Metabolic acidosis w/ respiratory compensation * Hypernatremia - * Anemia * sepsis Plan: * Patient remains oliguric. Her acidosis seems to have improved somewhat with dialysis. Her heart rate is in the low teens at this time. Shall attempt dialysis again today. * Continue intravenous bicarbonate drip as well as oral NaBicarb 1300mg TID through feeding tube * Vent management per critical care * Dose medications for renal function * Avoid potential nephrotoxins * Transfuse packed RBC with dialysis * Avoid nephrotoxins Subjective Date of service: 09/25/16 Principal diagnosis: Acute resp failure on MVS; S/P Acute CVA; Acute Encephalopathy; JUANITA Interval history: Patient remains on the ventilator. She had a left femoral Vas-Cath placed yesterday. Had a short dialysis treatment yesterday. Dialysis was terminated approximately after 1 hour and 10 minutes due to tachycardia. Patient was tachycardic again this morning. She was found to be in atrial fibrillation with rapid ventricular response. Cardioversion was attempted by cardiology services, which however was not successful. Her heart rate is still elevated but better at this time. She remains on 3 pressors as well as amiodarone drip Objective - Vital Signs Vital signs: Vital Signs - 12hr 09/25/16 09/25/16 09/25/16 01:15 01:30 01:45 Temperature Pulse Rate 142 H 138 H 141 H Respiratory 45 H 39 H 36 H Rate Blood Pressure 130/58 134/68 137/74 O2 Sat by Pulse 100 95 100 Oximetry O2 Sat by Pulse Oximetry [ Assessment] 09/25/16 09/25/16 09/25/16 02:00 02:16 02:30 Temperature Pulse Rate 135 H 140 H 146 H Respiratory 41 H 41 H 37 H Rate Blood Pressure 142/70 165/58 154/89 O2 Sat by Pulse 100 100 100 Oximetry O2 Sat by Pulse Oximetry [ Assessment] 09/25/16 09/25/16 09/25/16 02:45 03:00 03:15 Temperature Pulse Rate 139 H 153 H 140 H Respiratory 42 H 43 H 37 H Rate Blood Pressure 151/85 156/87 141/84 O2 Sat by Pulse 100 100 100 Oximetry O2 Sat by Pulse Oximetry [ Assessment] 09/25/16 09/25/16 09/25/16 03:30 03:45 03:52 Temperature 103.1 F H Pulse Rate 148 H 143 H Respiratory 43 H 37 H Rate Blood Pressure 145/82 135/82 O2 Sat by Pulse 100 96 Oximetry O2 Sat by Pulse Oximetry [ Assessment] 09/25/16 09/25/16 09/25/16 04:00 04:16 04:30 Temperature Pulse Rate 148 H 169 H 163 H Respiratory 35 H 37 H 38 H Rate Blood Pressure 135/87 135/87 134/66 O2 Sat by Pulse 100 100 100 Oximetry O2 Sat by Pulse Oximetry [ Assessment] 09/25/16 09/25/16 09/25/16 04:35 04:45 05:00 Temperature Pulse Rate 151 H 138 H 137 H Respiratory 39 H 39 H Rate Blood Pressure 143/74 159/81 O2 Sat by Pulse 100 100 Oximetry O2 Sat by Pulse Oximetry [ Assessment] 09/25/16 09/25/16 09/25/16 05:15 05:30 05:45 Temperature Pulse Rate 141 H 148 H 138 H Respiratory 36 H 39 H 40 H Rate Blood Pressure 140/82 154/82 136/82 O2 Sat by Pulse 100 100 100 Oximetry O2 Sat by Pulse Oximetry [ Assessment] 09/25/16 09/25/16 09/25/16 06:00 06:15 06:30 Temperature Pulse Rate 151 H 136 H 147 H Respiratory 36 H 36 H 37 H Rate Blood Pressure 146/81 135/85 127/64 O2 Sat by Pulse 100 100 100 Oximetry O2 Sat by Pulse Oximetry [ Assessment] 09/25/16 09/25/16 09/25/16 06:46 07:00 07:15 Temperature Pulse Rate 132 H 139 H 139 H Respiratory 25 H 36 H 37 H Rate Blood Pressure 90/51 136/75 130/80 O2 Sat by Pulse 100 98 100 Oximetry O2 Sat by Pulse Oximetry [ Assessment] 09/25/16 09/25/16 09/25/16 07:30 07:45 07:47 Temperature Pulse Rate 144 H 139 H 135 H Respiratory 40 H 40 H Rate Blood Pressure 132/80 135/76 132/80 O2 Sat by Pulse 100 100 100 Oximetry O2 Sat by Pulse Oximetry [ Assessment] 09/25/16 09/25/16 09/25/16 08:00 08:07 08:15 Temperature 103.1 F H Pulse Rate 137 H 134 H 141 H Respiratory 29 H 38 H Rate Blood Pressure 131/82 131/82 125/78 O2 Sat by Pulse 100 100 100 Oximetry O2 Sat by Pulse Oximetry [ Assessment] 09/25/16 09/25/16 09/25/16 08:30 08:46 09:00 Temperature Pulse Rate 140 H 159 H 133 H Respiratory 39 H 42 H 39 H Rate Blood Pressure 143/71 137/75 143/71 O2 Sat by Pulse 100 100 100 Oximetry O2 Sat by Pulse Oximetry [ Assessment] 09/25/16 09/25/16 09/25/16 09:15 09:30 09:45 Temperature Pulse Rate 154 H 163 H 166 H Respiratory 32 H 39 H 37 H Rate Blood Pressure 118/61 115/67 95/68 O2 Sat by Pulse 97 100 100 Oximetry O2 Sat by Pulse Oximetry [ Assessment] 09/25/16 09/25/16 09/25/16 10:00 10:15 10:30 Temperature Pulse Rate 160 H 127 H 125 H Respiratory 18 27 H 24 Rate Blood Pressure 95/68 103/61 103/57 O2 Sat by Pulse 97 94 96 Oximetry O2 Sat by Pulse Oximetry [ Assessment] 09/25/16 09/25/16 09/25/16 10:45 11:00 11:15 Temperature Pulse Rate 127 H 120 H 126 H Respiratory 18 20 23 Rate Blood Pressure 104/62 102/48 93/48 O2 Sat by Pulse 96 95 91 Oximetry O2 Sat by Pulse Oximetry [ Assessment] 09/25/16 09/25/16 09/25/16 11:30 11:45 12:00 Temperature 100.3 F H Pulse Rate 121 H 130 H 120 H Respiratory 21 24 22 Rate Blood Pressure 87/54 105/55 125/68 O2 Sat by Pulse 90 92 94 Oximetry O2 Sat by Pulse Oximetry [ Assessment] 09/25/16 09/25/16 12:03 12:25 Temperature Pulse Rate 124 H Respiratory Rate Blood Pressure 105/55 O2 Sat by Pulse 92 Oximetry O2 Sat by Pulse 96 Oximetry [ Assessment] - General Appearance General appearance: well-developed, well-nourished, appears stated age, intubated EENT: PERRL, mucous membranes moist Neck: no JVD, no thyromegaly, no carotid bruit, supple Respiratory: Present: Ronchi (few scattered rhonchi) Cardiology: irregularly irregular Gastrointestinal: normal, normoactive bowel sounds Integumentary: no rash, other (left femoral Vas-Cath in place) - Lab 09/25/16 04:20 09/25/16 04:20 Most recent lab results Calcium 6.0 mg/dL (8.4-10.2) L 09/25/16 04:20 Phosphorus 4.60 mg/dL (2.5-4.5) H 09/25/16 04:20 Magnesium 1.60 mg/dL (1.7-2.3) L 09/25/16 04:20 Urine Creatinine 54.8 mg/dL (0.1-20.0) H 09/21/16 12:00 Urine Sodium 36 mEq/L 09/16/16 19:19 Urine Total Protein 16 mg/dL (5-11.8) H 09/16/16 19:19
[2016-09-25] MEDS ORDERED: NACL 0.9% 1000 ML 2,000 ML ONE (14:17)
[2016-09-25] MEDS ORDERED: REGLAN IV SCH (16:00)
[2016-09-25] MEDS: CORDARONE 900 MG in D5W 482 ML IV SCH (21:14)
[2016-09-26] MEDS: VANCOMYCIN PO FEEDTUBE SCH ×4 (00:15→17:19)
[2016-09-26] MEDS: PROTONIX IV SCH ×3 (00:15→21:43)
[2016-09-26] MEDS: TORADOL IV PRN (00:29)
[2016-09-26] MEDS: LEVOPHED DRIP 4 MG/NS 250 ML 4 MG/250 ML BAG IV SCH ×4 (01:03→19:26)
[2016-09-26] MEDS: ZOSYN/NS 2.25 GM/50ML 2.25 GM/50 ML BAG IV SCH (05:32)
[2016-09-26] MEDS: LOPRESSOR IV PRN (05:39)
[2016-09-26 06:10] LABS: Hematocrit 21.6 % (30.3-42.9); Hemoglobin 7.4 gm/dl (10.1-14.3); Mean Corpuscular HGB Conc 34 % (30-34); Mean Corpuscular Hemoglobin 28 pg (28-32); Mean Corpuscular Volume 82 fl (79-97); Platelet Count 196 K/mm3 (140-440); Red Blood Count 2.65 M/mm3 (3.65-5.03)
[2016-09-26 06:15] LABS: Red Cell Distribution Width 22.5 % (13.2-15.2)
[2016-09-26] MEDS: HEPARIN SUB-Q SCH ×3 (06:26→21:45)
[2016-09-26] MEDS: REGLAN IV SCH ×3 (06:27→21:21)
[2016-09-26 06:28] LABS: BUN/Creatinine Ratio 16.53; Calcium 6.7 mg/dL (8.4-10.2)
[2016-09-26 06:56] LABS: Anisocytosis 1+; Band Neutrophils # (Manual) 0.9 K/mm3; Basophils % (Manual) 0 % (0.0-1.8); Platelet Estimate Consistent w Auto; Total Cells Counted 100
--- NOTE | 2016-09-26 07:27 | XRay Report ---
Single view chest: Compared to 09/25/16. History: Followup of respiratory failure. Findings: Cardiomegaly. Trachea is midline. Stable support system. No consolidation, pneumothorax or pleural effusion. Impression: No definite acute cardiopulmonary findings
[2016-09-26] MEDS: HumuLIN R SUB-Q SCH ×3 (08:13→18:39)
[2016-09-26] MEDS: FLAGYL 500 MG/100 ML 500 MG/100 ML BAG IV SCH ×4 (08:30→17:19)
[2016-09-26] MEDS: SODIUM BICARBONATE PO SCH ×3 (08:32→21:20)
[2016-09-26] MEDS: LEVEMIR (NF) SUB-Q SCH ×2 (09:14→13:20)
[2016-09-26] MEDS: ASPIRIN PO SCH (09:44)
[2016-09-26] MEDS: PLAVIX FEEDTUBE SCH (09:44)
--- NOTE | 2016-09-26 09:58 | Progress Note ---
Assessment and Plan - Patient Problems (1) Sepsis Current Visit: Yes Status: Acute Qualifiers: Sepsis type: sepsis due to unspecified organism Qualified Code(s): A41.9 - Sepsis, unspecified organism Plan to address problem: 1. Question drug fever. Will change Zosyn to Meropenem and continue renally adjusted Vancomycin IV. 2. Continue enteral Vancomycin and Flagyl. 3. Cultures remain negative to date. (2) Chronic renal insufficiency Current Visit: Yes Status: Acute Qualifiers: Chronic kidney disease stage: C Plan to address problem: Renally adjusted medication doses. Subjective Date of service: 09/26/16 Principal diagnosis: Acute resp failure on MVS; S/P Acute CVA; Acute Encephalopathy; JUANITA Interval history: Remains critically ill in ICU. On dual pressors and Amiodarone. Intermittently febrile to 103 deg F. Objective - Constitutional Vitals: Vital Signs Temp Pulse Resp BP Pulse Ox 99.9 F H 139 H 18 124/49 99 09/26/16 08:00 09/26/16 08:00 09/26/16 08:00 09/26/16 08:00 09/26/16 08:00 Temperature -Last 24 Hours Temperature 99.9 F Temperature 99.4 F Temperature 101.1 F Temperature 100.9 F Temperature 99.6 F Temperature 98.7 F Temperature 100.7 F Temperature 100.3 F General appearance: Present: other (minimally responsive) - EENT Eyes: no scleral icterus, no conjunctival injection ENT: other (NG tube in place) - Neck Neck: other (tracheostomy, FiO2 35%) - Respiratory Respiratory effort: normal Respiratory: bilateral: rhonchi, negative: wheezing - Cardiovascular Rhythm: regular (tachycardic to 130s) Extremities: No edema - Gastrointestinal General gastrointestinal: Present: soft, non-distended, hypoactive bowel sounds Rectal Exam: other (rectal tube with watery, dark stool) - Genitourinary Female genitourinary: other ([place] with small amount of dark urine) - Integumentary Integumentary: no rash - Neurologic Neurologic: other (minimally responsive) - Additional findings Additional findings: left femoral vascath, left PICC, neither with signs of infection - Labs CBC & Chem 7: 09/26/16 04:25 09/26/16 04:25 Labs: Abnormal lab results 09/25/16 09/25/1609/25/17 Range/Units 10:30 12:05 17:44 RBC (3.65-5.03) M/mm3 Hgb (10.1-14.3) gm/dl Hct (30.3-42.9) % RDW (13.2-15.2) % Lymphocytes % (Manual) (13.4-35.0) % Eosinophils % (Manual) (0.0-4.3) % Lymphocytes # (Manual) (1.2-5.4) K/mm3 Eosinophils # (Manual) (0.0-0.4) K/mm3 Chloride (98-107) mmol/L Carbon Dioxide (22-30) mmol/L BUN (7-17) mg/dL Creatinine (0.7-1.2) mg/dL Glucose (65-100) mg/dL POC Glucose 117 H 119 H (70-105) Lactic Acid (0.7-2.0) mmol/L Calcium (8.4-10.2) mg/dL Crossmatch See Detail 09/25/16 09/26/16 09/26/16 Range/Units 23:47 04:25 04:25 RBC 2.65 L (3.65-5.03) M/mm3 Hgb 7.4 L (10.1-14.3) gm/dl Hct 21.6 L (30.3-42.9) % RDW 22.5 H (13.2-15.2) % Lymphocytes % (Manual) 6.0 L (13.4-35.0) % Eosinophils % (Manual) 11.0 H (0.0-4.3) % Lymphocytes # (Manual) 0.4 L (1.2-5.4) K/mm3 Eosinophils # (Manual) 0.6 H (0.0-0.4) K/mm3 Chloride 97.0 L (98-107) mmol/L Carbon Dioxide 19 L (22-30) mmol/L BUN 43 H (7-17) mg/dL Creatinine 2.6 H (0.7-1.2) mg/dL Glucose 130 H (65-100) mg/dL POC Glucose 150 H (70-105) Lactic Acid (0.7-2.0) mmol/L Calcium 6.7 L (8.4-10.2) mg/dL Crossmatch 09/26/16 09/26/16 Range/Units 04:25 05:20 RBC (3.65-5.03) M/mm3 Hgb (10.1-14.3) gm/dl Hct (30.3-42.9) % RDW (13.2-15.2) % Lymphocytes % (Manual) (13.4-35.0) % Eosinophils % (Manual) (0.0-4.3) % Lymphocytes # (Manual) (1.2-5.4) K/mm3 Eosinophils # (Manual) (0.0-0.4) K/mm3 Chloride (98-107) mmol/L Carbon Dioxide (22-30) mmol/L BUN (7-17) mg/dL Creatinine (0.7-1.2) mg/dL Glucose (65-100) mg/dL POC Glucose 121 H (70-105) Lactic Acid 4.40 H* (0.7-2.0) mmol/L Calcium (8.4-10.2) mg/dL Crossmatch Microbiology 09/25/16 17:12 Peripheral/Venous Blood Fungal Culture - Preliminary Culture in Progress 09/25/16 17:12 Peripheral/Venous Blood Fungal Culture - Preliminary Culture in Progress 09/23/16 22:30 Urine,Catheterized - Indwelling Catheter Urine Culture - Final 09/23/16 16:55 Peripheral/Venous Blood Culture - Preliminary NO GROWTH AFTER 48 HOURS 09/23/16 16:55 Peripheral/Venous Blood Culture - Preliminary NO GROWTH AFTER 48 HOURS 09/23/16 16:30 Tracheal Aspirate Sputum Culture - Preliminary 09/13/16 10:30 Urine,[place] Urine Culture - Final NO GROWTH AFTER 48 HOURS 09/13/16 09:04 Peripheral/Venous Blood Culture - Final NO GROWTH AFTER 5 DAYS 09/13/16 08:39 Peripheral/Venous Blood Culture - Final NO GROWTH AFTER 5 DAYS 09/15/16 18:44 Stool Stool Occult Blood (HORTENCIA) - Final 09/13/16 14:06 Tracheal Aspirate Sputum Culture - Final 09/11/16 15:03 Stool C. difficile DNA Amplification - Final 09/10/16 10:58 Urine,Clean Catch Urine Culture - Preliminary NO GROWTH AFTER 48 HOURS 09/07/16 17:39 Tracheal Aspirate Sputum Culture - Final - Imaging and cardiology Chest x-ray: report reviewed (no acute cardiopulmonary findings) Abdominal x-ray: report reviewed (no obvious obstruction or perforation)
[2016-09-26] MEDS ORDERED: VANCOMYCIN PHARMACY TO DOSE IV SCH (10:00)
--- NOTE | 2016-09-26 10:26 | Progress Note ---
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 HR remains in 130s despite amiodarone gtt. She is s/p HD yesterday. Will reassess for HD tomorrow. No emergent need at present * Pressors prn MAP>65 * Rate control per cardiology * Abx per ID * Vent management per critical care * Dose medications for renal function * Avoid potential nephrotoxins Subjective Date of service: 09/26/16 Principal diagnosis: Acute resp failure on MVS; S/P Acute CVA; Acute Encephalopathy; JUANITA Interval history: Patient currently on 3 pressors (Levo, Neosynephrine, Vasopression) w/ MAP 61; HR in 130s on Amiodarone. Objective - Vital Signs Vital signs: Vital Signs - 12hr 09/25/16 09/25/16 09/25/16 22:30 22:45 23:00 Temperature Pulse Rate 140 H 134 H 136 H Pulse Rate [ From Monitor] Respiratory 24 25 H 20 Rate Blood Pressure 112/57 121/59 124/68 O2 Sat by Pulse 99 100 81 L Oximetry O2 Sat by Pulse Oximetry [ Assessment] 09/25/16 09/25/16 09/25/16 23:16 23:22 23:30 Temperature Pulse Rate 137 H 135 H 143 H Pulse Rate [ From Monitor] Respiratory 23 24 30 H Rate Blood Pressure 115/67 115/67 108/61 O2 Sat by Pulse 99 99 98 Oximetry O2 Sat by Pulse Oximetry [ Assessment] 09/25/16 09/25/16 09/25/16 23:35 23:40 23:45 Temperature 101.1 F H Pulse Rate 137 H 142 H Pulse Rate [ From Monitor] Respiratory 23 Rate Blood Pressure 108/61 113/62 O2 Sat by Pulse 98 100 Oximetry O2 Sat by Pulse Oximetry [ Assessment] 09/25/16 09/26/16 09/26/16 23:50 00:00 00:15 Temperature Pulse Rate 137 H 142 H Pulse Rate [ From Monitor] Respiratory 21 22 Rate Blood Pressure 110/53 104/53 O2 Sat by Pulse 100 100 Oximetry O2 Sat by Pulse 98 Oximetry [ Assessment] 09/26/16 09/26/16 09/26/16 00:30 00:45 01:00 Temperature Pulse Rate 139 H 129 H 141 H Pulse Rate [ From Monitor] Respiratory 30 H 31 H 28 H Rate Blood Pressure 88/49 85/47 104/52 O2 Sat by Pulse 100 98 100 Oximetry O2 Sat by Pulse Oximetry [ Assessment] 09/26/16 09/26/16 09/26/16 01:15 01:30 01:45 Temperature Pulse Rate 138 H 144 H 138 H Pulse Rate [ From Monitor] Respiratory 28 H 27 H 26 H Rate Blood Pressure 95/48 92/52 85/34 O2 Sat by Pulse 100 100 100 Oximetry O2 Sat by Pulse Oximetry [ Assessment] 09/26/16 09/26/16 09/26/16 02:00 02:15 02:31 Temperature Pulse Rate 147 H 132 H 144 H Pulse Rate [ From Monitor] Respiratory 28 H 26 H 29 H Rate Blood Pressure 120/75 116/69 124/72 O2 Sat by Pulse 97 99 99 Oximetry O2 Sat by Pulse Oximetry [ Assessment] 09/26/16 09/26/16 09/26/16 02:45 03:01 03:15 Temperature Pulse Rate 140 H 151 H 128 H Pulse Rate [ From Monitor] Respiratory 31 H 30 H 31 H Rate Blood Pressure 121/67 95/52 90/50 O2 Sat by Pulse 100 100 100 Oximetry O2 Sat by Pulse Oximetry [ Assessment] 09/26/16 09/26/16 09/26/16 03:19 03:30 03:45 Temperature 99.4 F Pulse Rate 132 H 130 H Pulse Rate [ From Monitor] Respiratory 24 24 Rate Blood Pressure 97/48 113/50 O2 Sat by Pulse 100 100 Oximetry O2 Sat by Pulse Oximetry [ Assessment] 09/26/16 09/26/16 09/26/16 04:00 04:15 04:31 Temperature Pulse Rate 140 H 109 H 141 H Pulse Rate [ From Monitor] Respiratory 25 H 24 17 Rate Blood Pressure 95/57 131/69 121/78 O2 Sat by Pulse 100 99 100 Oximetry O2 Sat by Pulse Oximetry [ Assessment] 09/26/16 09/26/16 09/26/16 04:45 05:01 05:15 Temperature Pulse Rate 155 H 165 H 149 H Pulse Rate [ From Monitor] Respiratory 40 H 32 H 31 H Rate Blood Pressure 121/78 106/89 173/95 O2 Sat by Pulse 98 99 98 Oximetry O2 Sat by Pulse Oximetry [ Assessment] 09/26/16 09/26/16 09/26/16 05:31 05:39 05:45 Temperature Pulse Rate 127 H 169 H 124 H Pulse Rate [ From Monitor] Respiratory 27 H 39 H Rate Blood Pressure 117/63 173/95 119/57 O2 Sat by Pulse 100 98 Oximetry O2 Sat by Pulse Oximetry [ Assessment] 09/26/16 09/26/16 09/26/16 06:01 06:15 06:31 Temperature Pulse Rate 143 H 145 H 135 H Pulse Rate [ From Monitor] Respiratory 36 H 38 H 37 H Rate Blood Pressure 124/70 124/70 133/63 O2 Sat by Pulse 97 98 100 Oximetry O2 Sat by Pulse Oximetry [ Assessment] 09/26/16 09/26/16 09/26/16 06:45 07:01 07:15 Temperature Pulse Rate 140 H 136 H 135 H Pulse Rate [ From Monitor] Respiratory 37 H 37 H 41 H Rate Blood Pressure 106/73 116/69 106/73 O2 Sat by Pulse 100 100 100 Oximetry O2 Sat by Pulse Oximetry [ Assessment] 09/26/16 09/26/16 09/26/16 07:31 07:32 07:45 Temperature Pulse Rate 137 H 138 H 150 H Pulse Rate [ From Monitor] Respiratory 39 H 35 H Rate Blood Pressure 168/71 107/65 115/64 O2 Sat by Pulse 100 100 100 Oximetry O2 Sat by Pulse Oximetry [ Assessment] 09/26/16 09/26/16 09/26/16 08:00 08:15 08:30 Temperature 99.9 F H Pulse Rate 137 H 131 H 132 H Pulse Rate [ 139 H From Monitor] Respiratory 23 30 H 28 H Rate Blood Pressure 124/49 106/64 94/58 O2 Sat by Pulse 100 100 100 Oximetry O2 Sat by Pulse Oximetry [ Assessment] 09/26/16 09/26/16 09/26/16 08:45 09:00 09:15 Temperature Pulse Rate 128 H 141 H 123 H Pulse Rate [ From Monitor] Respiratory 26 H 31 H 32 H Rate Blood Pressure 94/58 84/54 90/39 O2 Sat by Pulse 100 100 100 Oximetry O2 Sat by Pulse Oximetry [ Assessment] 09/26/16 09/26/16 09/26/16 09:30 09:45 10:00 Temperature Pulse Rate 133 H 127 H 129 H Pulse Rate [ From Monitor] Respiratory 35 H 21 Rate Blood Pressure 88/44 92/51 O2 Sat by Pulse 100 100 Oximetry O2 Sat by Pulse Oximetry [ Assessment] - General Appearance General appearance: well-developed, intubated EENT: ATNC Neck: other (Trach) Respiratory: Present: Other (Coarse BS bilaterally) Cardiology: tachycardia Gastrointestinal: normal Musculoskeletal: other (+edema) - Lab 09/26/16 04:25 09/26/16 04:25 Most recent lab results Calcium 6.7 mg/dL (8.4-10.2) L 09/26/16 04:25 Phosphorus 4.60 mg/dL (2.5-4.5) H 09/25/16 04:20 Magnesium 1.70 mg/dL (1.7-2.3) 09/26/16 04:25 Urine Creatinine 54.8 mg/dL (0.1-20.0) H 09/21/16 12:00 Urine Sodium 36 mEq/L 09/16/16 19:19 Urine Total Protein 16 mg/dL (5-11.8) H 09/16/16 19:19
--- NOTE | 2016-09-26 10:51 | Progress Note ---
Assessment and Plan Assessment: Acute hypoxic respiratory failure on mechanical ventilation s/p trach and PEG Acute left MCA CVA echocardiogram demonstrates at least moderate LVH but a normal LV systolic function, EF 50-55%. no thrombus visualized on transthoracic echocardiogram. Hypertension Now patient is hypotensive and on multiple pressors Acute on chronic renal failure AG metabolic acidosis on bicarbonate drip Leukocytosis - resolved, intermittent fever ? etiology, leukemoid vs steroid induced vs sepsis ? drug induced fever - ID on board Diabetes mellitus Anemia requiring transfusion of PRBCs Paroxysmal Afib Rate uncontrolled due to sepsis, multiple pressors (levophed) s/p failed cardioversion on Monday Recommendations: Continue IV amiodarone Continue IV pressor support Continue IV fluids Considering checking for C.difficile Prognosis is guarded Subjective Date of service: 09/26/16 Principal diagnosis: Acute resp failure on MVS; S/P Acute CVA; Acute Encephalopathy; JUANITA Interval history: Patient is on multiple pressors this morning. Temp is 99. Patient having loose stools. She is still mechanically ventilated through trach Objective Vital Signs Temp Pulse Pulse Resp BP Pulse Ox Pulse Ox 09/26/16 10:00 129 H 09/26/16 09:45 127 H 21 92/51 100 09/26/16 09:30 133 H 35 H 88/44 100 09/26/16 09:15 123 H 32 H 90/39 100 09/26/16 09:00 141 H 31 H 84/54 100 09/26/16 08:45 128 H 26 H 94/58 100 09/26/16 08:30 132 H 28 H 94/58 100 09/26/16 08:15 131 H 30 H 106/64 100 09/26/16 08:00 99.9 F H 137 H 139 H 23 124/49 100 09/26/16 07:45 150 H 35 H 115/64 100 09/26/16 07:32 138 H 107/65 100 09/26/16 07:31 137 H 39 H 168/71 100 09/26/16 07:15 135 H 41 H 106/73 100 09/26/16 07:01 136 H 37 H 116/69 100 09/26/16 06:45 140 H 37 H 106/73 100 09/26/16 06:31 135 H 37 H 133/63 100 09/26/16 06:15 145 H 38 H 124/70 98 09/26/16 06:01 143 H 36 H 124/70 97 09/26/16 05:45 124 H 39 H 119/57 98 09/26/16 05:39 169 H 173/95 09/26/16 05:31 127 H 27 H 117/63 100 09/26/16 05:15 149 H 31 H 173/95 98 09/26/16 05:01 165 H 32 H 106/89 99 09/26/16 04:45 155 H 40 H 121/78 98 09/26/16 04:31 141 H 17 121/78 100 09/26/16 04:15 109 H 24 131/69 99 09/26/16 04:00 140 H 25 H 95/57 100 09/26/16 03:45 130 H 24 113/50 100 09/26/16 03:30 132 H 24 97/48 100 09/26/16 03:19 99.4 F 09/26/16 03:15 128 H 31 H 90/50 100 09/26/16 03:01 151 H 30 H 95/52 100 09/26/16 02:45 140 H 31 H 121/67 100 09/26/16 02:31 144 H 29 H 124/72 99 09/26/16 02:15 132 H 26 H 116/69 99 09/26/16 02:00 147 H 28 H 120/75 97 09/26/16 01:45 138 H 26 H 85/34 100 09/26/16 01:30 144 H 27 H 92/52 100 09/26/16 01:15 138 H 28 H 95/48 100 09/26/16 01:00 141 H 28 H 104/52 100 09/26/16 00:45 129 H 31 H 85/47 98 09/26/16 00:30 139 H 30 H 88/49 100 09/26/16 00:15 142 H 22 104/53 100 09/26/16 00:00 137 H 21 110/53 100 09/25/16 23:50 09/25/16 23:45 142 H 23 113/62 100 09/25/16 23:40 137 H 108/61 98 09/25/16 23:35 101.1 F H 09/25/16 23:30 143 H 30 H 108/61 98 09/25/16 23:22 135 H 24 115/67 99 09/25/16 23:16 137 H 23 115/67 99 09/25/16 23:00 136 H 20 124/68 81 L 09/25/16 22:45 134 H 25 H 121/59 100 09/25/16 22:30 140 H 24 112/57 99 09/25/16 22:16 142 H 22 106/67 100 09/25/16 22:00 144 H 23 138/87 100 09/25/16 21:45 136 H 27 H 125/80 100 09/25/16 21:30 131 H 28 H 130/89 100 09/25/16 21:15 141 H 24 150/80 100 09/25/16 21:00 137 H 20 95/71 100 09/25/16 20:45 152 H 29 H 95/71 100 09/25/16 20:30 140 H 24 107/63 100 09/25/16 20:15 153 H 24 110/53 99 09/25/16 20:00 148 H 22 111/63 100 09/25/16 19:45 143 H 23 109/61 100 09/25/16 19:44 100.9 F H 09/25/16 19:30 148 H 31 H 142/77 99 09/25/16 19:16 147 H 25 H 147/75 100 09/25/16 19:00 144 H 27 H 117/81 100 09/25/16 18:45 138 H 21 94/73 100 09/25/16 18:30 136 H 25 H 95/63 99 09/25/16 18:15 145 H 27 H 95/63 100 09/25/16 18:00 141 H 29 H 87/57 100 09/25/16 17:45 145 H 25 H 85/53 98 09/25/16 17:30 155 H 24 158/94 100 09/25/16 17:16 146 H 31 H 158/94 100 09/25/16 17:00 155 H 26 H 136/71 98 09/25/16 16:46 156 H 26 H 158/94 95 09/25/16 16:45 99.6 F 132 H 28 H 158/94 97 09/25/16 16:30 146 H 27 H 154/87 99 09/25/16 16:16 163 H 27 H 135/88 99 09/25/16 16:15 116 H 135/88 09/25/16 16:10 152 H 127/71 100 09/25/16 16:00 98.7 F 160 H 26 H 127/71 100 09/25/16 15:45 151 H 26 H 126/74 99 09/25/16 15:40 135 H 109/66 09/25/16 15:30 156 H 26 H 125/71 99 09/25/16 15:25 137 H 118/67 09/25/16 15:15 167 H 25 H 109/68 98 09/25/16 15:10 144 H 108/58 09/25/16 15:00 149 H 23 104/60 99 09/25/16 14:47 152 H 103/66 09/25/16 14:45 148 H 24 98/59 97 09/25/16 14:30 138 H 25 H 103/58 97 09/25/16 14:15 114 H 26 H 100/58 99 09/25/16 14:00 115 H 28 H 108/63 98 09/25/16 13:45 100.7 F H 115 H 28 H 116/71 96 98 09/25/16 13:30 117 H 26 H 106/67 95 09/25/16 13:15 126 H 31 H 109/65 97 09/25/16 13:00 125 H 26 H 101/64 97 09/25/16 12:45 121 H 26 H 110/62 93 09/25/16 12:30 120 H 34 H 123/72 98 09/25/16 12:25 09/25/16 12:15 121 H 29 H 132/68 96 09/25/16 12:03 124 H 105/55 92 09/25/16 12:00 100.3 F H 120 H 22 125/68 94 09/25/16 11:45 130 H 24 105/55 92 09/25/16 11:30 121 H 21 87/54 90 09/25/16 11:15 126 H 23 93/48 91 09/25/16 11:00 120 H 20 102/48 95 Pulse Ox 09/26/16 10:00 09/26/16 09:45 09/26/16 09:30 09/26/16 09:15 09/26/16 09:00 09/26/16 08:45 09/26/16 08:30 09/26/16 08:15 09/26/16 08:00 09/26/16 07:45 09/26/16 07:32 09/26/16 07:31 09/26/16 07:15 09/26/16 07:01 09/26/16 06:45 09/26/16 06:31 09/26/16 06:15 09/26/16 06:01 09/26/16 05:45 09/26/16 05:39 09/26/16 05:31 09/26/16 05:15 09/26/16 05:01 09/26/16 04:45 09/26/16 04:31 09/26/16 04:15 09/26/16 04:00 09/26/16 03:45 09/26/16 03:30 09/26/16 03:19 09/26/16 03:15 09/26/16 03:01 09/26/16 02:45 09/26/16 02:31 09/26/16 02:15 09/26/16 02:00 09/26/16 01:45 09/26/16 01:30 09/26/16 01:15 09/26/16 01:00 09/26/16 00:45 09/26/16 00:30 09/26/16 00:15 09/26/16 00:00 09/25/16 23:50 98 09/25/16 23:45 09/25/16 23:40 09/25/16 23:35 09/25/16 23:30 09/25/16 23:22 09/25/16 23:16 09/25/16 23:00 09/25/16 22:45 09/25/16 22:30 09/25/16 22:16 09/25/16 22:00 09/25/16 21:45 09/25/16 21:30 09/25/16 21:15 09/25/16 21:00 09/25/16 20:45 09/25/16 20:30 09/25/16 20:15 09/25/16 20:00 09/25/16 19:45 09/25/16 19:44 09/25/16 19:30 09/25/16 19:16 09/25/16 19:00 09/25/16 18:45 09/25/16 18:30 09/25/16 18:15 09/25/16 18:00 09/25/16 17:45 09/25/16 17:30 09/25/16 17:16 09/25/16 17:00 09/25/16 16:46 09/25/16 16:45 09/25/16 16:30 09/25/16 16:16 09/25/16 16:15 09/25/16 16:10 09/25/16 16:00 09/25/16 15:45 09/25/16 15:40 09/25/16 15:30 09/25/16 15:25 09/25/16 15:15 09/25/16 15:10 09/25/16 15:00 09/25/16 14:47 09/25/16 14:45 09/25/16 14:30 09/25/16 14:15 09/25/16 14:00 09/25/16 13:45 09/25/16 13:30 09/25/16 13:15 09/25/16 13:00 09/25/16 12:45 09/25/16 12:30 09/25/16 12:25 96 09/25/16 12:15 09/25/16 12:03 09/25/16 12:00 09/25/16 11:45 09/25/16 11:30 09/25/16 11:15 09/25/16 11:00 - Physical Examination General: Other (intubated via trach) Neck: Positive: neck supple Cardiac: Positive: irregularly irregular Lungs: Positive: Ventilated Respirations Abdomen: Positive: Soft Extremities: Present: normal - Labs and Meds CBC 09/26/16 Range/Units 04:25 WBC 5.9 (4.5-11.0) K/mm3 RBC 2.65 L (3.65-5.03) M/mm3 Hgb 7.4 L (10.1-14.3) gm/dl Hct 21.6 L (30.3-42.9) % Plt Count 196 (140-440) K/mm3 Comprehensive Metabolic Panel 09/26/16 Range/Units 04:25 Sodium 137 (137-145) mmol/L Potassium 3.9 (3.6-5.0) mmol/L Chloride 97.0 L (98-107) mmol/L Carbon Dioxide 19 L (22-30) mmol/L BUN 43 H (7-17) mg/dL Creatinine 2.6 H (0.7-1.2) mg/dL Glucose 130 H (65-100) mg/dL Calcium 6.7 L (8.4-10.2) mg/dL - Imaging and Cardiology EKG: image reviewed - Allied health notes Allied health notes reviewed: RT
[2016-09-26] MEDS ORDERED: VANCOMYCIN 1,500 MG in NACL 0.9% 500 ML 500 ML IV ONE (11:00)
[2016-09-26] MEDS: Vasostrict 20 UNIT in NACL 0.9% 100 ML IV SCH ×2 (11:33→21:59)
--- NOTE | 2016-09-26 11:34 | Progress Note ---
Assessment and Plan Assessment and plan: --Hypotension/ septic shock on multiple pressors On levophed , titrate systolic blood pressures to more than 100 --Anemia, hemoglobin today is 7, type and cross and transfuse 1 unit of PRBC and patient's fever comes down Closely monitor H&H, GI following --Acute on chronic kidney disease stage III , worsening renal function , nephrology following Hemodialysis as needed --Acute hypoxic respiratory failure vent dependent/unable to wean s/p trach and PEG, continue PEG feeds --Paroxysmal A. fib, with intermittent RVR cardiology started amiodarone drip Titrate heart rates to less than 100 --Acute large left MCA CVA status post TPA/encephalopathy Aspirin/statin/supportive care --Aspiration pneumonia Continue vancomycin and Flagyl, ID following --Acute exacerbation of COPD; Nebulizers tapering dose of steroids antibiotics and ventilatory support, pulmonary following --Anemia requiring blood transfusion; closely monitor H&H and transfuse as needed --2 diabetes mellitus; Accu-Chek sliding scale coverage and ADA diet and insulin as needed --Moderate to severe protein calorie malnutrition with albumin of 2.2 Nutritional supplements, tube feeding, supportive care --DVT prophylaxis with heparin --Full CODE STATUS Discharge planning ; LTAC placement when clinically stable Critical Care time 33 minutes The high probability of a clinically significant, sudden or life threatening deterioration of the [cardiovascular, pulmonary, infectious, renal and neurological] system(s) required my full and direct attention, intervention and personal management. The aggregate critical care time was [33] minutes. This time is in addition to time spent performing reported procedures but includes the following: [x] Data Review and interpretation [x] Patient assessment and monitoring of vital signs [x] Documentation [x] Medication orders and management Family requests aggressive management Very poor prognosis History Interval history: Patient seen and evaluated medical records reviewed No new events reported by the nursing staff Patient remains tachycardic and tachypneic, hypotensive on pressors Hospitalist Physical - Constitutional Vitals: Temp Pulse Resp BP Pulse Ox 99.9 F H 124 H 29 H 111/60 100 09/26/16 08:00 09/26/16 11:00 09/26/16 11:00 09/26/16 11:00 09/26/16 11:00 General appearance: Present: mild distress, cachectic, other (status post tracheostomy on vent) - EENT Eyes: Present: PERRL, EOM intact - Neck Neck: Present: supple - Respiratory Respiratory effort: normal Respiratory: bilateral: diminished, rhonchi, negative: rales, wheezing - Cardiovascular Rhythm: irregularly irregular (tachycardia) Heart Sounds: Present: S1 & S2 - Extremities Extremities: no ischemia Extremity abnormal: edema - Abdominal General gastrointestinal: soft, non-tender, non-distended, other (PEG in place) - Integumentary Integumentary: Present: clear, warm - Psychiatric Psychiatric: other (noncommunicative) - Neurologic Neurologic: other (non-communicative) Results - Labs CBC & Chem 7: 09/26/16 04:25 09/26/16 04:25 Labs: Laboratory Last Values WBC 5.9 K/mm3 (4.5-11.0) 09/26/16 04:25 RBC 2.65 M/mm3 (3.65-5.03) L 09/26/16 04:25 Hgb 7.4 gm/dl (10.1-14.3) L 09/26/16 04:25 Hct 21.6 % (30.3-42.9) L 09/26/16 04:25 MCV 82 fl (79-97) 09/26/16 04:25 MCH 28 pg (28-32) 09/26/16 04:25 MCHC 34 % (30-34) 09/26/16 04:25 RDW 22.5 % (13.2-15.2) H 09/26/16 04:25 Plt Count 196 K/mm3 (140-440) 09/26/16 04:25 Lymph % (Auto) 6.9 % (13.4-35.0) L 09/21/16 07:45 [place] % (Auto) 9.4 % (0.0-7.3) H 09/21/16 07:45 Eos % (Auto) 0.3 % (0.0-4.3) 09/21/16 07:45 Baso % (Auto) 0.2 % (0.0-1.8) 09/21/16 07:45 Lymph # 0.9 K/mm3 (1.2-5.4) L 09/21/16 07:45 [place] # 1.3 K/mm3 (0.0-0.8) H 09/21/16 07:45 Eos # 0.0 K/mm3 (0.0-0.4) 09/21/16 07:45 Baso # 0.0 K/mm3 (0.0-0.1) 09/21/16 07:45 Add Manual Diff Complete 09/26/16 04:25 Total Counted 100 09/26/16 04:25 Seg Neutrophils % Administrative Office Manager 09/23/16 05:00 Seg Neuts % (Manual) 59.0 % (40.0-70.0) 09/26/16 04:25 Band Neutrophils % 16.0 % 09/26/16 04:25 Lymphocytes % (Manual) 6.0 % (13.4-35.0) L 09/26/16 04:25 Reactive Lymphs % (Man) 0 % 09/26/16 04:25 Monocytes % (Manual) 4.0 % (0.0-7.3) 09/26/16 04:25 Eosinophils % (Manual) 11.0 % (0.0-4.3) H 09/26/16 04:25 Basophils % (Manual) 0 % (0.0-1.8) 09/26/16 04:25 Metamyelocytes % 4.0 % 09/26/16 04:25 Myelocytes % 0 % 09/26/16 04:25 Promyelocytes % 0 % 09/26/16 04:25 Blast Cells % 0 % 09/26/16 04:25 Nucleated RBC % Not Reportable 09/26/16 04:25 Seg Neutrophils # 11.5 K/mm3 (1.8-7.7) H 09/21/16 07:45 Seg Neutrophils # Man 3.5 K/mm3 (1.8-7.7) 09/26/16 04:25 Band Neutrophils # 0.9 K/mm3 09/26/16 04:25 Lymphocytes # (Manual) 0.4 K/mm3 (1.2-5.4) L 09/26/16 04:25 Abs React Lymphs (Man) 0.0 K/mm3 09/26/16 04:25 Monocytes # (Manual) 0.2 K/mm3 (0.0-0.8) 09/26/16 04:25 Eosinophils # (Manual) 0.6 K/mm3 (0.0-0.4) H 09/26/16 04:25 Basophils # (Manual) 0.0 K/mm3 (0.0-0.1) 09/26/16 04:25 Metamyelocytes # 0.2 K/mm3 09/26/16 04:25 Myelocytes # 0.0 K/mm3 09/26/16 04:25 Promyelocytes # 0.0 K/mm3 09/26/16 04:25 Blast Cells # 0.0 K/mm3 09/26/16 04:25 Pathologist Review 09/13/16 04:00 WBC Morphology Not Reportable 09/26/16 04:25 Hypersegmented Neuts Not Reportable 09/26/16 04:25 Hyposegmented Neuts Not Reportable 09/26/16 04:25 Hypogranular Neuts Not Reportable 09/26/16 04:25 Smudge Cells Not Reportable 09/26/16 04:25 Toxic Granulation Not Reportable 09/26/16 04:25 Toxic Vacuolation Not Reportable 09/26/16 04:25 Dohle Bodies Not Reportable 09/26/16 04:25 Pelger-Huet Anomaly Not Reportable 09/26/16 04:25 Jasmina Rods Not Reportable 09/26/16 04:25 Platelet Estimate Consistent w auto 09/26/16 04:25 Clumped Platelets Not Reportable 09/26/16 04:25 Plt Clumps, EDTA Not Reportable 09/26/16 04:25 Large Platelets Not Reportable 09/26/16 04:25 Giant Platelets Not Reportable 09/26/16 04:25 Platelet Satelliting Not Reportable 09/26/16 04:25 Plt Morphology Comment Not Reportable 09/26/16 04:25 RBC Morphology Not Reportable 09/26/16 04:25 Dimorphic RBCs Not Reportable 09/26/16 04:25 Polychromasia Not Reportable 09/26/16 04:25 Hypochromasia Not Reportable 09/26/16 04:25 Poikilocytosis Not Reportable 09/26/16 04:25 Anisocytosis 1+ 09/26/16 04:25 Microcytosis Not Reportable 09/26/16 04:25 Macrocytosis Not Reportable 09/26/16 04:25 Spherocytes Not Reportable 09/26/16 04:25 Pappenheimer Bodies Not Reportable 09/26/16 04:25 Sickle Cells Not Reportable 09/26/16 04:25 Target Cells Not Reportable 09/26/16 04:25 Tear Drop Cells Not Reportable 09/26/16 04:25 Ovalocytes Not Reportable 09/26/16 04:25 Helmet Cells Not Reportable 09/26/16 04:25 [place] Bodies Not Reportable 09/26/16 04:25 [place] Rings Not Reportable 09/26/16 04:25 Chuck Cells Not Reportable 09/26/16 04:25 Bite Cells Not Reportable 09/26/16 04:25 Crenated Cell Not Reportable 09/26/16 04:25 Elliptocytes Not Reportable 09/26/16 04:25 Acanthocytes (Spur) Not Reportable 09/26/16 04:25 Rouleaux Not Reportable 09/26/16 04:25 Hemoglobin C Crystals Not Reportable 09/26/16 04:25 Schistocytes Not Reportable 09/26/16 04:25 Malaria parasites Not Reportable 09/26/16 04:25 ESR > 140.0 mm/Hr (0-20) 09/08/16 11:48 Jun Bodies Not Reportable 09/26/16 04:25 Hem Pathologist Commnt No 09/26/16 04:25 PT 13.8 Sec. (12.2-14.9) 09/15/16 05:00 INR 1.01 (0.87-1.13) 09/15/16 05:00 APTT 24.4 Sec. (24.2-36.6) 09/15/16 05:00 Thrombin Time 16.8 Sec. (15.1-19.6) 09/03/16 00:10 Fibrinogen 750 mg/dl (211-480) H 09/08/16 11:48 Lupus Anticoagulant see below 09/12/16 09:59 LA PTT Baseline See scanned report 09/12/16 09:59 dRVVT Confirm Interp Positive (Negative) H 09/12/16 09:59 dRVVT Screen 50:50 See scanned report 09/12/16 09:59 dRVVT Mix Interpret See scanned report 09/12/16 09:59 Protein C Antigen 122 % (70-140) 09/08/16 15:35 Free Protein S 97 % normal (50-147) 09/08/16 15:35 Total Protein S 109 % (70-140) 09/08/16 15:35 Antithrombin III Ag 100 % (80-120) 09/08/16 15:35 Factor V Activity 182 % (65-150) H 09/08/16 15:35 POC ABG pH 7.436 (7.35-7.45) 09/25/16 08:02 POC ABG pCO2 24.7 (35-45) L 09/25/16 08:02 POC ABG pO2 152 (80-105) H 09/25/16 08:02 POC ABG HCO3 16.6 09/25/16 08:02 POC ABG Total CO2 17 09/25/16 08:02 POC ABG O2 Sat 99 09/25/16 08:02 POC ABG Base Excess -8 09/25/16 08:02 FiO2 50 % 09/25/16 08:02 Sodium 137 mmol/L (137-145) 09/26/16 04:25 Potassium 3.9 mmol/L (3.6-5.0) 09/26/16 04:25 Chloride 97.0 mmol/L (98-107) L 09/26/16 04:25 Carbon Dioxide 19 mmol/L (22-30) L 09/26/16 04:25 Anion Gap 25 mmol/L 09/26/16 04:25 BUN 43 mg/dL (7-17) H 09/26/16 04:25 Creatinine 2.6 mg/dL (0.7-1.2) H 09/26/16 04:25 Estimated GFR 24 ml/min 09/26/16 04:25 BUN/Creatinine Ratio 16.53 % 09/26/16 04:25 Glucose 130 mg/dL (65-100) H 09/26/16 04:25 POC Glucose 121 (70-105) H 09/26/16 05:20 Osmolality 351 Mosm/kg 09/16/16 11:47 Lactic Acid 4.40 mmol/L (0.7-2.0) H* 09/26/16 04:25 Calcium 6.7 mg/dL (8.4-10.2) L 09/26/16 04:25 Phosphorus 4.60 mg/dL (2.5-4.5) H 09/25/16 04:20 Magnesium 1.70 mg/dL (1.7-2.3) 09/26/16 04:25 Total Bilirubin 0.30 mg/dL (0.1-1.2) 09/13/16 04:00 AST 20 units/L (5-40) 09/13/16 04:00 ALT 18 units/L (7-56) 09/13/16 04:00 Alkaline Phosphatase 72 units/L (35-129) 09/13/16 04:00 Ammonia 27.0 umol/L (25-60) 09/07/16 08:37 Total Creatine Kinase 67 units/L (30-135) 09/03/16 11:26 CK-MB (CK-2) 1.4 ng/mL (0.0-4.0) 09/03/16 11:26 CK-MB (CK-2) Rel Index 2.0 (0-4) 09/03/16 11:26 Troponin T < 0.010 ng/mL (0.00-0.029) 09/06/16 10:43 C-Reactive Protein 3.20 mg/dL (0.00-1.30) H 09/23/16 05:00 Total Protein 6.2 g/dL (6.3-8.2) L 09/13/16 04:00 Albumin 2.9 g/dL (3.9-5) L 09/13/16 04:00 Albumin/Globulin Ratio 0.9 % 09/13/16 04:00 Triglycerides 243 mg/dL (2-149) H 09/20/16 04:10 Cholesterol 189 mg/dL (50-199) 09/04/16 03:31 LDL Cholesterol Direct 126 mg/dL (50-130) 09/04/16 03:31 HDL Cholesterol 31 mg/dL (40-59) L 09/04/16 03:31 Cholesterol/HDL Ratio 6.09 % 09/04/16 03:31 Angiotensin Convert Enz See scanned report 09/08/16 11:48 TSH 1.010 mlU/mL (0.270-4.200) 09/07/16 08:37 HCG, Qual Negative (Negative) 09/03/16 00:10 Urine Color Yellow (Yellow) 09/09/16 14:13 Urine Turbidity Slightly-cloudy (Clear) 09/09/16 14:13 Urine pH 5.0 (5.0-7.0) 09/09/16 14:13 Ur Specific [place] 1.012 (1.003-1.030) 09/09/16 14:13 Urine Protein 30 mg/dl mg/dL (Negative) 09/09/16 14:13 Urine Glucose (UA) Neg mg/dL (Negative) 09/09/16 14:13 Urine Ketones Neg mg/dL (Negative) 09/09/16 14:13 Urine Blood Lg (Negative) 09/09/16 14:13 Urine Nitrite Neg (Negative) 09/09/16 14:13 Urine Bilirubin Neg (Negative) 09/09/16 14:13 Urine Urobilinogen < 2.0 mg/dL (<2.0) 09/09/16 14:13 Ur Leukocyte Esterase Sm (Negative) 09/09/16 14:13 Urine WBC (Auto) 25.0 /HPF (0.0-6.0) H 09/09/16 14:13 Urine RBC (Auto) > 182.0 /HPF (0.0-6.0) 09/09/16 14:13 Urine Bacteria (Auto) 1+ /HPF (Negative) 09/09/16 14:13 Urine WBC Clumps 2+ /HPF 09/07/16 02:47 Hyaline Casts 4 /LPF 09/07/16 02:47 Urine Mucus Few /HPF 09/09/16 14:13 Urine Eosinophils None seen (None Seen) 09/07/16 16:00 Urine Total Volume 1350 09/21/16 12:00 Urine Creatinine 54.8 mg/dL (0.1-20.0) H 09/21/16 12:00 Height (in) 67.0 inches 09/21/16 12:00 Weight (lb) 92.0 lbs 09/21/16 12:00 Creatinine Clearance 15 09/21/16 12:00 Urine Sodium 36 mEq/L 09/16/16 19:19 Urine Total Protein 16 mg/dL (5-11.8) H 09/16/16 19:19 Vancomycin Trough 2.3 ug/mL (5.0-20.0) L 09/21/16 13:00 Random Vancomycin 2.3 ug/mL (0-40.0) 09/09/16 03:00 Urine Opiates Screen Presumptive negative 09/03/16 15:11 Urine Methadone Screen Presumptive positive 09/03/16 15:11 Ur Barbiturates Screen Presumptive positive 09/03/16 15:11 Ur Phencyclidine Scrn Presumptive negative 09/03/16 15:11 Ur Amphetamines Screen Presumptive negative 09/03/16 15:11 U Benzodiazepines Scrn Presumptive negative 09/03/16 15:11 Urine Cocaine Screen Presumptive negative 09/03/16 15:11 U Marijuana (THC) Screen Presumptive positive 09/03/16 15:11 Drugs of Abuse Note Disclamer 09/03/16 15:11 Rheumatoid Factor 24 IU/ml (0-13) H 09/08/16 11:48 SAHIL Screen Negative (Negative) 09/07/16 09:20 Proteinase 3 (PR3) Ab <1.0 AI (<1.0) 09/07/16 09:20 Myeloperoxidase Ab <1.0 AI (<1.0) 09/07/16 09:20 Sjogren's Antibody <1.0 AI (<1.0) 09/08/16 15:35 Scl-70 Scleroderma Ab <1.0 AI (<1.0) 09/08/16 15:35 Centromere B Antibody <1.0 AI (<1.0) 09/08/16 12:02 Cardiolipid IgG Ab <14 GPL (<=14) 09/12/16 09:59 Cardiolipid IgA Ab <11 APL (<=11) 09/12/16 09:59 Cardiolipid IgM Ab <12 MPL (<=12) 09/12/16 09:59 Complement C3 148 mg/dL (90-180) 09/07/16 09:20 Complement C4 58 mg/dL (16-47) H 09/07/16 09:20 RPR Nonreactive (Nonreactive) 09/08/16 11:48 Hepatitis A IgM Ab Non-reactive (NonReactive) 09/24/16 14:40 Hep Bs Antigen Non-reactive (Negative) 09/24/16 14:40 Hep B Core IgM Ab Non-reactive (NonReactive) 09/24/16 14:40 Hepatitis C Antibody Non-reactive (NonReactive) 09/24/16 14:40 HIV 1&2 Antibody Rapid Non react (Non React) 09/08/16 11:48 HIV P24 Antigen Non react (Non React) 09/08/16 11:48 Blood Type A POSITIVE 09/25/16 10:30 Antibody Screen TNR 09/25/16 10:30 DELORIS Antibody Screen Negative 09/25/16 10:30 Crossmatch See Detail 09/25/16 10:30
[2016-09-26] MEDS ORDERED: ZOLOFT ONE (12:20)
--- NOTE | 2016-09-26 12:23 | Progress Note ---
Assessment and Plan (1) Acute respiratory failure with hypoxia Current Visit: Yes Status: Acute Plan to address problem: - continue aspiration precautions / address VAP bundles - continue to wean oxygen for MAP > 94% - continue bronchodilators and pulmonary toilet - tapered off systemic steroids (no active needs pulmonary-[place]) - completed empiric levaquin dosing - s/p tracheostomy - placed back on AC mode after review of ABG and secondary to increased work of breathing - increased set rate also - continue to hold on weaning today (2) Acute CVA (cerebrovascular accident) Current Visit: Yes Status: Acute Plan to address problem: - out of tpA window (initially stopped due to uncontrolled HTN) - Left MCA teritory stroke with some midline shift on last CT - seen by neurology and prognosis for recovery of mental status guarded to poor - optimizing secondary prevention modalities now (BP, lipid anti-platelet therapy) - off systemic steroids now (started earlier for edema) - resumed ASA and Plavix (3) Hypertensive emergency Current Visit: Yes Status: Acute Plan to address problem: - stopped all antihypertensives while septic - follow cllinically (4) Obesity (BMI 35.0-39.9 without comorbidity) Current Visit: Yes Status: Chronic Plan to address problem: - increased reglan dose - resume trickle feeding at 10mls/hr (5) Type 2 diabetes mellitus Current Visit: Yes Status: Chronic Qualifiers: Diabetes mellitus complication status: D Diabetes mellitus complication detail: D Diabetic retinopathy severity: D Proliferative retinopathy type: P Diabetes mellitus macular edema: D 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 Laterality: L Chronic kidney disease stage: C Plan to address problem: - continue SSI - continue lantus at 8 units sq q24h (6) Leukocytosis (leucocytosis) Current Visit: Yes Status: Acute Qualifiers: Leukocytosis type: leukemoid reaction Qualified Code(s): D72.823 - Leukemoid reaction Plan to address problem: - has been spiking fevers also - fungemia noted - started diflucan as growing dann albicans but will follow sensitivities (7) Agitation Current Visit: Yes Status: Acute Plan to address problem: - prn sedation - taper off seroquel for now (8) Atrial fibrillation Current Visit: Yes Status: Acute Qualifiers: Atrial fibrillation type: A Plan to address problem: - failed cardioversion earlier - cardiology evaluation ongoing (9) JUANITA (acute kidney injury) Current Visit: Yes Status: Acute Plan to address problem: - on Dialysis now - oliguric - will defer to nephrology - continue vasopressor support re: cardiorenal issues and to aid dialysis - gave 50gms of 25% albumin also today (10) Pyrexia of unknown origin Current Visit: Yes Status: Acute Plan to address problem: - will get dopplers as part of a PUO work-up to r/o VTE - continue to treat with AB;'s empirically - started on diflucan for fungemia (11) Severe sepsis Current Visit: Yes Status: Acute Plan to address problem: - SvO2 estimate was 55% yesterday - volume resuscitated to boost cardiac output and tissue oxygen delivery - continue AB's and follow cultures - wean vasopressors for target MAP >/= 60-65mmHg - started diflucan (12) Discharge planning issues Current Visit: Yes Status: Acute Plan to address problem: - she remains critically ill on life sustaining interventions including MVS and at risk for further acute deterioration including .....40' CCT ....prognosis is guarded ...care plan discussed during team rounds Subjective Date of service: 09/26/16 Principal diagnosis: Acute resp failure on MVS; S/P Acute CVA; Acute Encephalopathy; JUANITA Interval history: Seen and examined at bedside; 24 hour events reviewed; nursing and respiratory care staff consulted; remains on multiple vasopressors; AMS is persistent; gastric effluent has slowed down; s/p HD/UF yesterday; fungal blood culture reported as positive; no gross GI or other bleeding Objective Vital Signs - 12hr 09/26/16 09/26/16 09/26/16 00:30 00:45 01:00 Temperature Pulse Rate 139 H 129 H 141 H Pulse Rate [ From Monitor] Respiratory 30 H 31 H 28 H Rate Blood Pressure 88/49 85/47 104/52 O2 Sat by Pulse 100 98 100 Oximetry 09/26/16 09/26/16 09/26/16 01:15 01:30 01:45 Temperature Pulse Rate 138 H 144 H 138 H Pulse Rate [ From Monitor] Respiratory 28 H 27 H 26 H Rate Blood Pressure 95/48 92/52 85/34 O2 Sat by Pulse 100 100 100 Oximetry 09/26/16 09/26/16 09/26/16 02:00 02:15 02:31 Temperature Pulse Rate 147 H 132 H 144 H Pulse Rate [ From Monitor] Respiratory 28 H 26 H 29 H Rate Blood Pressure 120/75 116/69 124/72 O2 Sat by Pulse 97 99 99 Oximetry 09/26/16 09/26/16 09/26/16 02:45 03:01 03:15 Temperature Pulse Rate 140 H 151 H 128 H Pulse Rate [ From Monitor] Respiratory 31 H 30 H 31 H Rate Blood Pressure 121/67 95/52 90/50 O2 Sat by Pulse 100 100 100 Oximetry 09/26/16 09/26/16 09/26/16 03:19 03:30 03:45 Temperature 99.4 F Pulse Rate 132 H 130 H Pulse Rate [ From Monitor] Respiratory 24 24 Rate Blood Pressure 97/48 113/50 O2 Sat by Pulse 100 100 Oximetry 09/26/16 09/26/16 09/26/16 04:00 04:15 04:31 Temperature Pulse Rate 140 H 109 H 141 H Pulse Rate [ From Monitor] Respiratory 25 H 24 17 Rate Blood Pressure 95/57 131/69 121/78 O2 Sat by Pulse 100 99 100 Oximetry 09/26/16 09/26/16 09/26/16 04:45 05:01 05:15 Temperature Pulse Rate 155 H 165 H 149 H Pulse Rate [ From Monitor] Respiratory 40 H 32 H 31 H Rate Blood Pressure 121/78 106/89 173/95 O2 Sat by Pulse 98 99 98 Oximetry 09/26/16 09/26/16 09/26/16 05:31 05:39 05:45 Temperature Pulse Rate 127 H 169 H 124 H Pulse Rate [ From Monitor] Respiratory 27 H 39 H Rate Blood Pressure 117/63 173/95 119/57 O2 Sat by Pulse 100 98 Oximetry 09/26/16 09/26/16 09/26/16 06:01 06:15 06:31 Temperature Pulse Rate 143 H 145 H 135 H Pulse Rate [ From Monitor] Respiratory 36 H 38 H 37 H Rate Blood Pressure 124/70 124/70 133/63 O2 Sat by Pulse 97 98 100 Oximetry 09/26/16 09/26/16 09/26/16 06:45 07:01 07:15 Temperature Pulse Rate 140 H 136 H 135 H Pulse Rate [ From Monitor] Respiratory 37 H 37 H 41 H Rate Blood Pressure 106/73 116/69 106/73 O2 Sat by Pulse 100 100 100 Oximetry 09/26/16 09/26/1617 07:31 07:32 07:45 Temperature Pulse Rate 137 H 138 H 150 H Pulse Rate [ From Monitor] Respiratory 39 H 35 H Rate Blood Pressure 168/71 107/65 115/64 O2 Sat by Pulse 100 100 100 Oximetry 09/26/16 09/26/16 09/26/16 08:00 08:15 08:30 Temperature 99.9 F H Pulse Rate 137 H 131 H 132 H Pulse Rate [ 139 H From Monitor] Respiratory 23 30 H 28 H Rate Blood Pressure 124/49 106/64 94/58 O2 Sat by Pulse 100 100 100 Oximetry 09/26/16 09/26/16 09/26/16 08:45 09:00 09:15 Temperature Pulse Rate 128 H 141 H 123 H Pulse Rate [ From Monitor] Respiratory 26 H 31 H 32 H Rate Blood Pressure 94/58 84/54 90/39 O2 Sat by Pulse 100 100 100 Oximetry 09/26/16 09/26/16 09/26/16 09:30 09:45 10:00 Temperature Pulse Rate 133 H 127 H 125 H Pulse Rate [ 129 H From Monitor] Respiratory 35 H 21 18 Rate Blood Pressure 88/44 92/51 94/57 O2 Sat by Pulse 100 100 100 Oximetry 09/26/16 09/26/16 09/26/16 10:15 10:31 10:45 Temperature Pulse Rate 121 H 126 H 124 H Pulse Rate [ From Monitor] Respiratory 25 H 27 H 27 H Rate Blood Pressure 100/55 129/74 133/63 O2 Sat by Pulse 100 100 100 Oximetry 09/26/16 09/26/16 09/26/16 11:00 12:00 12:04 Temperature 98.6 F Pulse Rate 124 H 126 H Pulse Rate [ From Monitor] Respiratory 29 H Rate Blood Pressure 111/60 90/50 O2 Sat by Pulse 100 100 Oximetry Constitutional: no acute distress, other (encephalopathic; soff sedation now) Eyes: non-icteric, other (tracheostomy tube in midline of neck) ENT: oropharynx moist Neck: supple, no lymphadenopathy Effort: normal Ascultation: Bilateral: diminished breath sounds, rhonchi (bases) Cardiovascular: regular rate and rhythm Gastrointestinal: normoactive bowel sounds, soft, non-tender, non-distended Integumentary: normal Extremities: no cyanosis, no edema, pulses normal, no ischemia or petechiae Neurologic: pupils equal and round, other (sedated) Psychiatric: other (unable to assess) CBC and BMP: 09/26/16 04:25 09/26/16 04:25 ABG, PT/INR, D-dimer: ABG POC ABG pH 7.436 (7.35-7.45) 09/25/16 08:02 POC ABG pCO2 24.7 (35-45) L 09/25/16 08:02 POC ABG pO2 152 (80-105) H 09/25/16 08:02 POC ABG HCO3 16.6 09/25/16 08:02 POC ABG Total CO2 17 09/25/16 08:02 POC ABG O2 Sat 99 09/25/16 08:02 PT/INR, D-dimer PT 13.8 Sec. (12.2-14.9) 09/15/16 05:00 INR 1.01 (0.87-1.13) 09/15/16 05:00 Abnormal lab findings: Abnormal Labs 09/03/16 09/03/16 09/03/16 12:12 15:07 16:20 WBC RBC Hgb Hct MCV MCH MCHC RDW Plt Count Lymph % (Auto) [place] % (Auto) Lymph # [place] # Seg Neutrophils % Seg Neuts % (Manual) Lymphocytes % (Manual) Monocytes % (Manual) Eosinophils % (Manual) Basophils % (Manual) Seg Neutrophils # Seg Neutrophils # Man Lymphocytes # (Manual) Monocytes # (Manual) Eosinophils # (Manual) Fibrinogen dRVVT Confirm Interp Factor V Activity POC ABG pH 7.452 H POC ABG pCO2 POC ABG pO2 Sodium Potassium Chloride Carbon Dioxide BUN Creatinine Glucose POC Glucose 178 H Lactic Acid Calcium Phosphorus 2.20 L Magnesium 1.60 L C-Reactive Protein Total Protein Albumin Triglycerides HDL Cholesterol Urine WBC (Auto) Urine Creatinine Urine Total Protein Vancomycin Trough Rheumatoid Factor Complement C4 Crossmatch 09/03/16 09/03/16 09/03/16 17:57 17:58 23:50 WBC RBC Hgb Hct MCV MCH MCHC RDW Plt Count Lymph % (Auto) [place] % (Auto) Lymph # [place] # Seg Neutrophils % Seg Neuts % (Manual) Lymphocytes % (Manual) Monocytes % (Manual) Eosinophils % (Manual) Basophils % (Manual) Seg Neutrophils # Seg Neutrophils # Man Lymphocytes # (Manual) Monocytes # (Manual) Eosinophils # (Manual) Fibrinogen dRVVT Confirm Interp Factor V Activity POC ABG pH POC ABG pCO2 POC ABG pO2 Sodium Potassium Chloride Carbon Dioxide BUN Creatinine Glucose POC Glucose 162 H 145 H Lactic Acid Calcium Phosphorus 2.30 L Magnesium C-Reactive Protein Total Protein Albumin Triglycerides HDL Cholesterol Urine WBC (Auto) Urine Creatinine Urine Total Protein Vancomycin Trough Rheumatoid Factor Complement C4 Crossmatch 09/04/16 09/04/16 09/04/16 03:31 03:31 05:42 WBC RBC Hgb 9.7 L D Hct MCV 72 L MCH 23 L MCHC RDW 17.5 H Plt Count Lymph % (Auto) 11.1 L [place] % (Auto) Lymph # [place] # Seg Neutrophils % 84.3 H Seg Neuts % (Manual) Lymphocytes % (Manual) Monocytes % (Manual) Eosinophils % (Manual) Basophils % (Manual) Seg Neutrophils # 8.9 H Seg Neutrophils # Man Lymphocytes # (Manual) Monocytes # (Manual) Eosinophils # (Manual) Fibrinogen dRVVT Confirm Interp Factor V Activity POC ABG pH POC ABG pCO2 POC ABG pO2 Sodium 135 L Potassium 2.9 L* Chloride 97.2 L Carbon Dioxide 19 L BUN Creatinine 1.7 H Glucose 170 H POC Glucose 152 H Lactic Acid Calcium Phosphorus Magnesium C-Reactive Protein Total Protein Albumin Triglycerides 160 H HDL Cholesterol 31 L Urine WBC (Auto) Urine Creatinine Urine Total Protein Vancomycin Trough Rheumatoid Factor Complement C4 Crossmatch 09/04/16 09/04/16 09/04/16 11:34 17:46 23:29 WBC RBC Hgb Hct MCV MCH MCHC RDW Plt Count Lymph % (Auto) [place] % (Auto) Lymph # [place] # Seg Neutrophils % Seg Neuts % (Manual) Lymphocytes % (Manual) Monocytes % (Manual) Eosinophils % (Manual) Basophils % (Manual) Seg Neutrophils # Seg Neutrophils # Man Lymphocytes # (Manual) Monocytes # (Manual) Eosinophils # (Manual) Fibrinogen dRVVT Confirm Interp Factor V Activity POC ABG pH POC ABG pCO2 POC ABG pO2 Sodium Potassium Chloride Carbon Dioxide BUN Creatinine Glucose POC Glucose 165 H 210 H 139 H Lactic Acid Calcium Phosphorus Magnesium C-Reactive Protein Total Protein Albumin Triglycerides HDL Cholesterol Urine WBC (Auto) Urine Creatinine Urine Total Protein Vancomycin Trough Rheumatoid Factor Complement C4 Crossmatch 09/05/16 09/05/16 09/05/16 04:05 04:05 05:38 WBC RBC Hgb Hct MCV 76 L D MCH 23 L MCHC RDW 17.8 H Plt Count Lymph % (Auto) [place] % (Auto) Lymph # [place] # Seg Neutrophils % Seg Neuts % (Manual) Lymphocytes % (Manual) Monocytes % (Manual) Eosinophils % (Manual) Basophils % (Manual) Seg Neutrophils # Seg Neutrophils # Man Lymphocytes # (Manual) Monocytes # (Manual) Eosinophils # (Manual) Fibrinogen dRVVT Confirm Interp Factor V Activity POC ABG pH POC ABG pCO2 POC ABG pO2 Sodium 134 L Potassium Chloride Carbon Dioxide 18 L BUN Creatinine 1.8 H Glucose 192 H POC Glucose 175 H Lactic Acid Calcium Phosphorus Magnesium C-Reactive Protein Total Protein Albumin Triglycerides HDL Cholesterol Urine WBC (Auto) Urine Creatinine Urine Total Protein Vancomycin Trough Rheumatoid Factor Complement C4 Crossmatch 09/05/16 09/05/16 09/05/16 11:38 17:48 23:22 WBC RBC Hgb Hct MCV MCH MCHC RDW Plt Count Lymph % (Auto) [place] % (Auto) Lymph # [place] # Seg Neutrophils % Seg Neuts % (Manual) Lymphocytes % (Manual) Monocytes % (Manual) Eosinophils % (Manual) Basophils % (Manual) Seg Neutrophils # Seg Neutrophils # Man Lymphocytes # (Manual) Monocytes # (Manual) Eosinophils # (Manual) Fibrinogen dRVVT Confirm Interp Factor V Activity POC ABG pH POC ABG pCO2 POC ABG pO2 Sodium Potassium Chloride Carbon Dioxide BUN Creatinine Glucose POC Glucose 164 H 186 H 195 H Lactic Acid Calcium Phosphorus Magnesium C-Reactive Protein Total Protein Albumin Triglycerides HDL Cholesterol Urine WBC (Auto) Urine Creatinine Urine Total Protein Vancomycin Trough Rheumatoid Factor Complement C4 Crossmatch 09/06/16 09/06/16 09/06/16 04:12 05:59 07:32 WBC RBC Hgb Hct MCV MCH MCHC RDW Plt Count Lymph % (Auto) [place] % (Auto) Lymph # [place] # Seg Neutrophils % Seg Neuts % (Manual) Lymphocytes % (Manual) Monocytes % (Manual) Eosinophils % (Manual) Basophils % (Manual) Seg Neutrophils # Seg Neutrophils # Man Lymphocytes # (Manual) Monocytes # (Manual) Eosinophils # (Manual) Fibrinogen dRVVT Confirm Interp Factor V Activity POC ABG pH 7.514 H POC ABG pCO2 29.1 L POC ABG pO2 72 L Sodium 133 L Potassium 3.4 L Chloride 94.9 L Carbon Dioxide 19 L BUN 30 H Creatinine 2.1 H Glucose 139 H POC Glucose 146 H Lactic Acid Calcium Phosphorus Magnesium C-Reactive Protein Total Protein Albumin Triglycerides HDL Cholesterol Urine WBC (Auto) Urine Creatinine Urine Total Protein Vancomycin Trough Rheumatoid Factor Complement C4 Crossmatch 09/06/16 09/06/16 09/06/16 11:57 17:58 19:02 WBC RBC Hgb Hct MCV MCH MCHC RDW Plt Count Lymph % (Auto) [place] % (Auto) Lymph # [place] # Seg Neutrophils % Seg Neuts % (Manual) Lymphocytes % (Manual) Monocytes % (Manual) Eosinophils % (Manual) Basophils % (Manual) Seg Neutrophils # Seg Neutrophils # Man Lymphocytes # (Manual) Monocytes # (Manual) Eosinophils # (Manual) Fibrinogen dRVVT Confirm Interp Factor V Activity POC ABG pH 7.465 H POC ABG pCO2 32.0 L POC ABG pO2 Sodium Potassium Chloride Carbon Dioxide BUN Creatinine Glucose POC Glucose 165 H 160 H Lactic Acid Calcium Phosphorus Magnesium C-Reactive Protein Total Protein Albumin Triglycerides HDL Cholesterol Urine WBC (Auto) Urine Creatinine Urine Total Protein Vancomycin Trough Rheumatoid Factor Complement C4 Crossmatch 09/06/16 09/07/16 09/07/16 23:45 02:47 02:47 WBC RBC Hgb Hct MCV MCH MCHC RDW Plt Count Lymph % (Auto) [place] % (Auto) Lymph # [place] # Seg Neutrophils % Seg Neuts % (Manual) Lymphocytes % (Manual) Monocytes % (Manual) Eosinophils % (Manual) Basophils % (Manual) Seg Neutrophils # Seg Neutrophils # Man Lymphocytes # (Manual) Monocytes # (Manual) Eosinophils # (Manual) Fibrinogen dRVVT Confirm Interp Factor V Activity POC ABG pH POC ABG pCO2 POC ABG pO2 Sodium Potassium Chloride Carbon Dioxide BUN Creatinine Glucose POC Glucose 204 H Lactic Acid Calcium Phosphorus Magnesium C-Reactive Protein Total Protein Albumin Triglycerides HDL Cholesterol Urine WBC (Auto) 68.0 H Urine Creatinine 106.1 H Urine Total Protein Vancomycin Trough Rheumatoid Factor Complement C4 Crossmatch 09/07/16 09/07/16 09/07/16 04:50 06:19 06:39 WBC RBC Hgb Hct MCV MCH MCHC RDW Plt Count Lymph % (Auto) [place] % (Auto) Lymph # [place] # Seg Neutrophils % Seg Neuts % (Manual) Lymphocytes % (Manual) Monocytes % (Manual) Eosinophils % (Manual) Basophils % (Manual) Seg Neutrophils # Seg Neutrophils # Man Lymphocytes # (Manual) Monocytes # (Manual) Eosinophils # (Manual) Fibrinogen dRVVT Confirm Interp Factor V Activity POC ABG pH 7.457 H POC ABG pCO2 32.1 L POC ABG pO2 76 L Sodium 132 L Potassium Chloride 94.7 L Carbon Dioxide BUN 53 H Creatinine 2.9 H Glucose 151 H POC Glucose 149 H Lactic Acid Calcium Phosphorus Magnesium C-Reactive Protein Total Protein Albumin Triglycerides HDL Cholesterol Urine WBC (Auto) Urine Creatinine Urine Total Protein Vancomycin Trough Rheumatoid Factor Complement C4 Crossmatch 09/07/16 09/07/16 09/07/16 09:20 11:43 11:43 WBC 19.4 H RBC Hgb 8.3 L Hct 26.4 L D MCV 72 L D MCH 22 L MCHC RDW 17.9 H Plt Count Lymph % (Auto) 8.5 L [place] % (Auto) Lymph # [place] # 1.0 H Seg Neutrophils % 85.8 H Seg Neuts % (Manual) Lymphocytes % (Manual) Monocytes % (Manual) Eosinophils % (Manual) Basophils % (Manual) Seg Neutrophils # 16.6 H Seg Neutrophils # Man Lymphocytes # (Manual) Monocytes # (Manual) Eosinophils # (Manual) Fibrinogen dRVVT Confirm Interp Factor V Activity POC ABG pH POC ABG pCO2 POC ABG pO2 Sodium 134 L Potassium Chloride 97.2 L Carbon Dioxide 20 L BUN 58 H Creatinine 2.9 H Glucose 147 H POC Glucose Lactic Acid Calcium Phosphorus 2.40 L Magnesium 2.40 H C-Reactive Protein Total Protein 5.8 L Albumin 2.2 L Triglycerides HDL Cholesterol Urine WBC (Auto) Urine Creatinine Urine Total Protein Vancomycin Trough Rheumatoid Factor Complement C4 58 H Crossmatch 09/07/16 09/07/16 09/07/16 11:50 16:00 17:31 WBC RBC Hgb Hct MCV MCH MCHC RDW Plt Count Lymph % (Auto) [place] % (Auto) Lymph # [place] # Seg Neutrophils % Seg Neuts % (Manual) Lymphocytes % (Manual) Monocytes % (Manual) Eosinophils % (Manual) Basophils % (Manual) Seg Neutrophils # Seg Neutrophils # Man Lymphocytes # (Manual) Monocytes # (Manual) Eosinophils # (Manual) Fibrinogen dRVVT Confirm Interp Factor V Activity POC ABG pH POC ABG pCO2 POC ABG pO2 158 H Sodium Potassium Chloride Carbon Dioxide BUN Creatinine Glucose POC Glucose 175 H Lactic Acid Calcium Phosphorus Magnesium C-Reactive Protein Total Protein Albumin Triglycerides HDL Cholesterol Urine WBC (Auto) Urine Creatinine 66.3 H Urine Total Protein Vancomycin Trough Rheumatoid Factor Complement C4 Crossmatch 09/07/16 09/08/16 09/08/16 23:50 05:46 06:18 WBC 17.8 H RBC 3.58 L Hgb 8.1 L Hct 25.5 L MCV 71 L MCH 23 L MCHC RDW 18.4 H Plt Count Lymph % (Auto) [place] % (Auto) Lymph # [place] # Seg Neutrophils % Seg Neuts % (Manual) 92.0 H Lymphocytes % (Manual) 6.0 L Monocytes % (Manual) Eosinophils % (Manual) Basophils % (Manual) Seg Neutrophils # Seg Neutrophils # Man 16.4 H Lymphocytes # (Manual) 1.1 L Monocytes # (Manual) Eosinophils # (Manual) Fibrinogen dRVVT Confirm Interp Factor V Activity POC ABG pH POC ABG pCO2 34.3 L POC ABG pO2 71 L Sodium Potassium Chloride Carbon Dioxide BUN Creatinine Glucose POC Glucose 216 H Lactic Acid Calcium Phosphorus Magnesium C-Reactive Protein Total Protein Albumin Triglycerides HDL Cholesterol Urine WBC (Auto) Urine Creatinine Urine Total Protein Vancomycin Trough Rheumatoid Factor Complement C4 Crossmatch 09/08/16 09/08/16 09/08/16 06:18 06:51 10:55 WBC RBC Hgb Hct MCV MCH MCHC RDW Plt Count Lymph % (Auto) [place] % (Auto) Lymph # [place] # Seg Neutrophils % Seg Neuts % (Manual) Lymphocytes % (Manual) Monocytes % (Manual) Eosinophils % (Manual) Basophils % (Manual) Seg Neutrophils # Seg Neutrophils # Man Lymphocytes # (Manual) Monocytes # (Manual) Eosinophils # (Manual) Fibrinogen dRVVT Confirm Interp Factor V Activity POC ABG pH POC ABG pCO2 POC ABG pO2 Sodium 133 L Potassium Chloride 96.9 L Carbon Dioxide 20 L BUN 63 H Creatinine 2.7 H Glucose 195 H POC Glucose 204 H 169 H Lactic Acid Calcium Phosphorus Magnesium C-Reactive Protein Total Protein Albumin Triglycerides HDL Cholesterol Urine WBC (Auto) Urine Creatinine Urine Total Protein Vancomycin Trough Rheumatoid Factor Complement C4 Crossmatch 09/08/16 09/08/16 09/08/16 11:48 11:48 11:48 WBC RBC Hgb Hct MCV MCH MCHC RDW Plt Count Lymph % (Auto) [place] % (Auto) Lymph # [place] # Seg Neutrophils % Seg Neuts % (Manual) Lymphocytes % (Manual) Monocytes % (Manual) Eosinophils % (Manual) Basophils % (Manual) Seg Neutrophils # Seg Neutrophils # Man Lymphocytes # (Manual) Monocytes # (Manual) Eosinophils # (Manual) Fibrinogen 750 H dRVVT Confirm Interp Factor V Activity POC ABG pH POC ABG pCO2 POC ABG pO2 Sodium Potassium Chloride Carbon Dioxide BUN Creatinine Glucose POC Glucose Lactic Acid Calcium Phosphorus Magnesium C-Reactive Protein 15.70 H Total Protein Albumin Triglycerides HDL Cholesterol Urine WBC (Auto) Urine Creatinine Urine Total Protein Vancomycin Trough Rheumatoid Factor 24 H Complement C4 Crossmatch 09/08/16 09/08/16 09/09/16 15:35 18:25 00:24 WBC RBC Hgb Hct MCV MCH MCHC RDW Plt Count Lymph % (Auto) [place] % (Auto) Lymph # [place] # Seg Neutrophils % Seg Neuts % (Manual) Lymphocytes % (Manual) Monocytes % (Manual) Eosinophils % (Manual) Basophils % (Manual) Seg Neutrophils # Seg Neutrophils # Man Lymphocytes # (Manual) Monocytes # (Manual) Eosinophils # (Manual) Fibrinogen dRVVT Confirm Interp Factor V Activity 182 H POC ABG pH POC ABG pCO2 POC ABG pO2 Sodium Potassium Chloride Carbon Dioxide BUN Creatinine Glucose POC Glucose 184 H 216 H Lactic Acid Calcium Phosphorus Magnesium C-Reactive Protein Total Protein Albumin Triglycerides HDL Cholesterol Urine WBC (Auto) Urine Creatinine Urine Total Protein Vancomycin Trough Rheumatoid Factor Complement C4 Crossmatch 09/09/16 09/09/16 09/09/16 03:00 03:00 04:04 WBC 27.9 H RBC Hgb 8.7 L Hct 28.1 L MCV 72 L MCH 22 L MCHC RDW 18.4 H Plt Count 485 H Lymph % (Auto) [place] % (Auto) Lymph # [place] # Seg Neutrophils % Seg Neuts % (Manual) 77.0 H Lymphocytes % (Manual) 9.0 L Monocytes % (Manual) Eosinophils % (Manual) Basophils % (Manual) Seg Neutrophils # Seg Neutrophils # Man 21.5 H Lymphocytes # (Manual) Monocytes # (Manual) 2.0 H Eosinophils # (Manual) Fibrinogen dRVVT Confirm Interp Factor V Activity POC ABG pH POC ABG pCO2 POC ABG pO2 121 H Sodium 135 L Potassium Chloride 96.3 L Carbon Dioxide 21 L BUN 83 H Creatinine 3.0 H Glucose 135 H POC Glucose Lactic Acid Calcium Phosphorus Magnesium C-Reactive Protein Total Protein Albumin Triglycerides HDL Cholesterol Urine WBC (Auto) Urine Creatinine Urine Total Protein Vancomycin Trough Rheumatoid Factor Complement C4 Crossmatch 09/09/16 09/09/16 09/09/16 05:41 11:55 14:13 WBC RBC Hgb Hct MCV MCH MCHC RDW Plt Count Lymph % (Auto) [place] % (Auto) Lymph # [place] # Seg Neutrophils % Seg Neuts % (Manual) Lymphocytes % (Manual) Monocytes % (Manual) Eosinophils % (Manual) Basophils % (Manual) Seg Neutrophils # Seg Neutrophils # Man Lymphocytes # (Manual) Monocytes # (Manual) Eosinophils # (Manual) Fibrinogen dRVVT Confirm Interp Factor V Activity POC ABG pH POC ABG pCO2 POC ABG pO2 Sodium Potassium Chloride Carbon Dioxide BUN Creatinine Glucose POC Glucose 155 H 186 H Lactic Acid Calcium Phosphorus Magnesium C-Reactive Protein Total Protein Albumin Triglycerides HDL Cholesterol Urine WBC (Auto) 25.0 H Urine Creatinine Urine Total Protein Vancomycin Trough Rheumatoid Factor Complement C4 Crossmatch 09/09/16 09/09/16 09/10/16 17:33 23:13 05:09 WBC RBC Hgb Hct MCV MCH MCHC RDW Plt Count Lymph % (Auto) [place] % (Auto) Lymph # [place] # Seg Neutrophils % Seg Neuts % (Manual) Lymphocytes % (Manual) Monocytes % (Manual) Eosinophils % (Manual) Basophils % (Manual) Seg Neutrophils # Seg Neutrophils # Man Lymphocytes # (Manual) Monocytes # (Manual) Eosinophils # (Manual) Fibrinogen dRVVT Confirm Interp Factor V Activity POC ABG pH POC ABG pCO2 POC ABG pO2 74 L Sodium Potassium Chloride Carbon Dioxide BUN Creatinine Glucose POC Glucose 211 H 215 H Lactic Acid Calcium Phosphorus Magnesium C-Reactive Protein Total Protein Albumin Triglycerides HDL Cholesterol Urine WBC (Auto) Urine Creatinine Urine Total Protein Vancomycin Trough Rheumatoid Factor Complement C4 Crossmatch 09/10/16 09/10/16 09/10/16 05:17 05:17 11:31 WBC 15.8 H RBC 3.25 L Hgb 7.3 L Hct 22.9 L MCV 71 L MCH 23 L MCHC RDW 18.4 H Plt Count Lymph % (Auto) [place] % (Auto) Lymph # [place] # Seg Neutrophils % Seg Neuts % (Manual) 91.0 H Lymphocytes % (Manual) 4.0 L Monocytes % (Manual) Eosinophils % (Manual) Basophils % (Manual) Seg Neutrophils # Seg Neutrophils # Man 14.4 H Lymphocytes # (Manual) 0.6 L Monocytes # (Manual) Eosinophils # (Manual) Fibrinogen dRVVT Confirm Interp Factor V Activity POC ABG pH POC ABG pCO2 POC ABG pO2 Sodium Potassium Chloride Carbon Dioxide 21 L BUN 93 H Creatinine 2.9 H Glucose 146 H POC Glucose 188 H Lactic Acid Calcium 8.1 L Phosphorus Magnesium C-Reactive Protein Total Protein Albumin Triglycerides HDL Cholesterol Urine WBC (Auto) Urine Creatinine Urine Total Protein Vancomycin Trough Rheumatoid Factor Complement C4 Crossmatch 09/10/16 09/10/16 09/10/16 13:17 17:20 23:32 WBC RBC Hgb Hct MCV MCH MCHC RDW Plt Count Lymph % (Auto) [place] % (Auto) Lymph # [place] # Seg Neutrophils % Seg Neuts % (Manual) Lymphocytes % (Manual) Monocytes % (Manual) Eosinophils % (Manual) Basophils % (Manual) Seg Neutrophils # Seg Neutrophils # Man Lymphocytes # (Manual) Monocytes # (Manual) Eosinophils # (Manual) Fibrinogen dRVVT Confirm Interp Factor V Activity POC ABG pH POC ABG pCO2 POC ABG pO2 Sodium Potassium Chloride Carbon Dioxide BUN Creatinine Glucose POC Glucose 199 H 186 H Lactic Acid Calcium Phosphorus Magnesium C-Reactive Protein Total Protein Albumin Triglycerides HDL Cholesterol Urine WBC (Auto) Urine Creatinine Urine Total Protein Vancomycin Trough Rheumatoid Factor Complement C4 Crossmatch See Detail 09/11/16 09/11/16 09/11/16 05:10 05:10 05:17 WBC 28.4 H RBC Hgb 9.2 L Hct 29.3 L D MCV 73 L MCH 23 L MCHC RDW 18.9 H Plt Count 452 H Lymph % (Auto) [place] % (Auto) Lymph # [place] # Seg Neutrophils % Seg Neuts % (Manual) 89.5 H Lymphocytes % (Manual) 2.0 L Monocytes % (Manual) Eosinophils % (Manual) Basophils % (Manual) Seg Neutrophils # Seg Neutrophils # Man 25.4 H Lymphocytes # (Manual) 0.6 L Monocytes # (Manual) 1.3 H Eosinophils # (Manual) Fibrinogen dRVVT Confirm Interp Factor V Activity POC ABG pH POC ABG pCO2 POC ABG pO2 Sodium 136 L Potassium Chloride Carbon Dioxide 18 L BUN 107 H Creatinine 2.6 H Glucose 187 H POC Glucose 230 H Lactic Acid Calcium 8.3 L Phosphorus Magnesium C-Reactive Protein Total Protein Albumin Triglycerides HDL Cholesterol Urine WBC (Auto) Urine Creatinine Urine Total Protein Vancomycin Trough Rheumatoid Factor Complement C4 Crossmatch 09/11/16 09/11/16 09/11/16 05:55 12:02 17:32 WBC RBC Hgb Hct MCV MCH MCHC RDW Plt Count Lymph % (Auto) [place] % (Auto) Lymph # [place] # Seg Neutrophils % Seg Neuts % (Manual) Lymphocytes % (Manual) Monocytes % (Manual) Eosinophils % (Manual) Basophils % (Manual) Seg Neutrophils # Seg Neutrophils # Man Lymphocytes # (Manual) Monocytes # (Manual) Eosinophils # (Manual) Fibrinogen dRVVT Confirm Interp Factor V Activity POC ABG pH POC ABG pCO2 33.8 L POC ABG pO2 Sodium Potassium Chloride Carbon Dioxide BUN Creatinine Glucose POC Glucose 191 H 239 H Lactic Acid Calcium Phosphorus Magnesium C-Reactive Protein Total Protein Albumin Triglycerides HDL Cholesterol Urine WBC (Auto) Urine Creatinine Urine Total Protein Vancomycin Trough Rheumatoid Factor Complement C4 Crossmatch 09/11/16 09/12/16 09/12/16 23:52 05:09 05:32 WBC RBC Hgb Hct MCV MCH MCHC RDW Plt Count Lymph % (Auto) [place] % (Auto) Lymph # [place] # Seg Neutrophils % Seg Neuts % (Manual) Lymphocytes % (Manual) Monocytes % (Manual) Eosinophils % (Manual) Basophils % (Manual) Seg Neutrophils # Seg Neutrophils # Man Lymphocytes # (Manual) Monocytes # (Manual) Eosinophils # (Manual) Fibrinogen dRVVT Confirm Interp Factor V Activity POC ABG pH POC ABG pCO2 34.6 L POC ABG pO2 Sodium Potassium Chloride Carbon Dioxide BUN Creatinine Glucose POC Glucose 265 H 184 H Lactic Acid Calcium Phosphorus Magnesium C-Reactive Protein Total Protein Albumin Triglycerides HDL Cholesterol Urine WBC (Auto) Urine Creatinine Urine Total Protein Vancomycin Trough Rheumatoid Factor Complement C4 Crossmatch 09/12/16 09/12/16 09/12/16 06:45 06:45 07:22 WBC 31.7 H RBC 3.54 L Hgb 8.3 L Hct 25.9 L MCV 73 L MCH 23 L MCHC RDW 18.9 H Plt Count Lymph % (Auto) [place] % (Auto) Lymph # [place] # Seg Neutrophils % Seg Neuts % (Manual) 88.5 H Lymphocytes % (Manual) 4.5 L Monocytes % (Manual) Eosinophils % (Manual) Basophils % (Manual) Seg Neutrophils # Seg Neutrophils # Man 28.1 H Lymphocytes # (Manual) Monocytes # (Manual) 1.0 H Eosinophils # (Manual) Fibrinogen dRVVT Confirm Interp Factor V Activity POC ABG pH POC ABG pCO2 POC ABG pO2 Sodium Potassium Chloride Carbon Dioxide 20 L BUN 115 H Creatinine 2.7 H Glucose 165 H POC Glucose Lactic Acid Calcium 8.0 L Phosphorus Magnesium C-Reactive Protein Total Protein Albumin Triglycerides 217 H HDL Cholesterol Urine WBC (Auto) Urine Creatinine Urine Total Protein Vancomycin Trough Rheumatoid Factor Complement C4 Crossmatch 09/12/16 09/12/16 09/12/16 07:22 09:59 12:21 WBC RBC Hgb Hct MCV MCH MCHC RDW Plt Count Lymph % (Auto) [place] % (Auto) Lymph # [place] # Seg Neutrophils % Seg Neuts % (Manual) Lymphocytes % (Manual) Monocytes % (Manual) Eosinophils % (Manual) Basophils % (Manual) Seg Neutrophils # Seg Neutrophils # Man Lymphocytes # (Manual) Monocytes # (Manual) Eosinophils # (Manual) Fibrinogen dRVVT Confirm Interp Positive H Factor V Activity POC ABG pH POC ABG pCO2 POC ABG pO2 Sodium Potassium Chloride Carbon Dioxide BUN Creatinine Glucose POC Glucose 224 H Lactic Acid Calcium Phosphorus Magnesium C-Reactive Protein 1.70 H Total Protein Albumin Triglycerides HDL Cholesterol Urine WBC (Auto) Urine Creatinine Urine Total Protein Vancomycin Trough Rheumatoid Factor Complement C4 Crossmatch 09/12/16 09/12/16 09/13/16 16:51 23:28 04:00 WBC 45.0 H* RBC Hgb 9.4 L Hct MCV 75 L MCH 23 L MCHC RDW 19.0 H Plt Count 470 H Lymph % (Auto) [place] % (Auto) Lymph # [place] # Seg Neutrophils % Seg Neuts % (Manual) 89.0 H Lymphocytes % (Manual) 5.0 L Monocytes % (Manual) Eosinophils % (Manual) Basophils % (Manual) Seg Neutrophils # Seg Neutrophils # Man 40.1 H Lymphocytes # (Manual) Monocytes # (Manual) Eosinophils # (Manual) Fibrinogen dRVVT Confirm Interp Factor V Activity POC ABG pH POC ABG pCO2 POC ABG pO2 Sodium Potassium Chloride Carbon Dioxide BUN Creatinine Glucose POC Glucose 169 H 150 H Lactic Acid Calcium Phosphorus Magnesium C-Reactive Protein Total Protein Albumin Triglycerides HDL Cholesterol Urine WBC (Auto) Urine Creatinine Urine Total Protein Vancomycin Trough Rheumatoid Factor Complement C4 Crossmatch 09/13/16 09/13/16 09/13/16 04:00 11:26 17:31 WBC RBC Hgb Hct MCV MCH MCHC RDW Plt Count Lymph % (Auto) [place] % (Auto) Lymph # [place] # Seg Neutrophils % Seg Neuts % (Manual) Lymphocytes % (Manual) Monocytes % (Manual) Eosinophils % (Manual) Basophils % (Manual) Seg Neutrophils # Seg Neutrophils # Man Lymphocytes # (Manual) Monocytes # (Manual) Eosinophils # (Manual) Fibrinogen dRVVT Confirm Interp Factor V Activity POC ABG pH POC ABG pCO2 POC ABG pO2 Sodium Potassium Chloride Carbon Dioxide 20 L BUN 116 H Creatinine 3.0 H Glucose 172 H POC Glucose 140 H 183 H Lactic Acid Calcium Phosphorus Magnesium C-Reactive Protein Total Protein 6.2 L Albumin 2.9 L Triglycerides HDL Cholesterol Urine WBC (Auto) Urine Creatinine Urine Total Protein Vancomycin Trough Rheumatoid Factor Complement C4 Crossmatch 09/13/16 09/14/16 09/14/16 23:23 04:06 04:07 WBC 29.4 H RBC Hgb 8.9 L Hct 27.3 L MCV 75 L MCH 24 L MCHC RDW 19.1 H Plt Count Lymph % (Auto) [place] % (Auto) Lymph # [place] # Seg Neutrophils % Seg Neuts % (Manual) 84.0 H Lymphocytes % (Manual) 6.0 L Monocytes % (Manual) 9.0 H Eosinophils % (Manual) Basophils % (Manual) Seg Neutrophils # Seg Neutrophils # Man 24.7 H Lymphocytes # (Manual) Monocytes # (Manual) 2.6 H Eosinophils # (Manual) Fibrinogen dRVVT Confirm Interp Factor V Activity POC ABG pH 7.342 L POC ABG pCO2 POC ABG pO2 116 H Sodium Potassium Chloride Carbon Dioxide BUN Creatinine Glucose POC Glucose 154 H Lactic Acid Calcium Phosphorus Magnesium C-Reactive Protein Total Protein Albumin Triglycerides HDL Cholesterol Urine WBC (Auto) Urine Creatinine Urine Total Protein Vancomycin Trough Rheumatoid Factor Complement C4 Crossmatch 09/14/16 09/14/16 09/14/16 04:07 05:29 12:19 WBC RBC Hgb Hct MCV MCH MCHC RDW Plt Count Lymph % (Auto) [place] % (Auto) Lymph # [place] # Seg Neutrophils % Seg Neuts % (Manual) Lymphocytes % (Manual) Monocytes % (Manual) Eosinophils % (Manual) Basophils % (Manual) Seg Neutrophils # Seg Neutrophils # Man Lymphocytes # (Manual) Monocytes # (Manual) Eosinophils # (Manual) Fibrinogen dRVVT Confirm Interp Factor V Activity POC ABG pH POC ABG pCO2 POC ABG pO2 Sodium 136 L Potassium Chloride Carbon Dioxide 18 L BUN 121 H Creatinine 2.8 H Glucose 214 H POC Glucose 239 H 181 H Lactic Acid Calcium Phosphorus Magnesium C-Reactive Protein Total Protein Albumin Triglycerides HDL Cholesterol Urine WBC (Auto) Urine Creatinine Urine Total Protein Vancomycin Trough Rheumatoid Factor Complement C4 Crossmatch 09/14/16 09/14/16 09/15/16 18:12 23:37 05:00 WBC 26.1 H RBC 3.05 L Hgb 7.2 L Hct 22.9 L MCV 75 L MCH 24 L MCHC RDW 19.0 H Plt Count Lymph % (Auto) [place] % (Auto) Lymph # [place] # Seg Neutrophils % Seg Neuts % (Manual) Lymphocytes % (Manual) Monocytes % (Manual) Eosinophils % (Manual) Basophils % (Manual) Seg Neutrophils # Seg Neutrophils # Man Lymphocytes # (Manual) Monocytes # (Manual) Eosinophils # (Manual) Fibrinogen dRVVT Confirm Interp Factor V Activity POC ABG pH POC ABG pCO2 POC ABG pO2 Sodium Potassium Chloride Carbon Dioxide BUN Creatinine Glucose POC Glucose 266 H 154 H Lactic Acid Calcium Phosphorus Magnesium C-Reactive Protein Total Protein Albumin Triglycerides HDL Cholesterol Urine WBC (Auto) Urine Creatinine Urine Total Protein Vancomycin Trough Rheumatoid Factor Complement C4 Crossmatch 09/15/16 09/15/16 09/15/16 05:00 05:17 12:45 WBC RBC Hgb Hct MCV MCH MCHC RDW Plt Count Lymph % (Auto) [place] % (Auto) Lymph # [place] # Seg Neutrophils % Seg Neuts % (Manual) Lymphocytes % (Manual) Monocytes % (Manual) Eosinophils % (Manual) Basophils % (Manual) Seg Neutrophils # Seg Neutrophils # Man Lymphocytes # (Manual) Monocytes # (Manual) Eosinophils # (Manual) Fibrinogen dRVVT Confirm Interp Factor V Activity POC ABG pH POC ABG pCO2 POC ABG pO2 Sodium Potassium 5.2 H Chloride Carbon Dioxide 18 L BUN 139 H Creatinine 3.7 H Glucose 227 H POC Glucose 226 H 244 H Lactic Acid Calcium 8.3 L Phosphorus Magnesium C-Reactive Protein Total Protein Albumin Triglycerides HDL Cholesterol Urine WBC (Auto) Urine Creatinine Urine Total Protein Vancomycin Trough Rheumatoid Factor Complement C4 Crossmatch 09/15/16 09/15/16 09/15/16 14:32 17:33 23:35 WBC RBC Hgb Hct MCV MCH MCHC RDW Plt Count Lymph % (Auto) [place] % (Auto) Lymph # [place] # Seg Neutrophils % Seg Neuts % (Manual) Lymphocytes % (Manual) Monocytes % (Manual) Eosinophils % (Manual) Basophils % (Manual) Seg Neutrophils # Seg Neutrophils # Man Lymphocytes # (Manual) Monocytes # (Manual) Eosinophils # (Manual) Fibrinogen dRVVT Confirm Interp Factor V Activity POC ABG pH POC ABG pCO2 27.7 L POC ABG pO2 120 H Sodium Potassium Chloride Carbon Dioxide BUN Creatinine Glucose POC Glucose 232 H 167 H Lactic Acid Calcium Phosphorus Magnesium C-Reactive Protein Total Protein Albumin Triglycerides HDL Cholesterol Urine WBC (Auto) Urine Creatinine Urine Total Protein Vancomycin Trough Rheumatoid Factor Complement C4 Crossmatch 09/16/16 09/16/16 09/16/16 03:58 10:27 10:27 WBC 19.0 H RBC 2.77 L Hgb 6.5 L Hct 20.9 L MCV 76 L MCH 23 L MCHC RDW 19.3 H Plt Count Lymph % (Auto) 11.0 L [place] % (Auto) Lymph # [place] # 1.1 H Seg Neutrophils % 82.5 H Seg Neuts % (Manual) Lymphocytes % (Manual) Monocytes % (Manual) Eosinophils % (Manual) Basophils % (Manual) Seg Neutrophils # 15.7 H Seg Neutrophils # Man Lymphocytes # (Manual) Monocytes # (Manual) Eosinophils # (Manual) Fibrinogen dRVVT Confirm Interp Factor V Activity POC ABG pH POC ABG pCO2 POC ABG pO2 Sodium Potassium Chloride 109.3 H Carbon Dioxide 18 L BUN 139 H Creatinine 4.1 H Glucose 144 H POC Glucose 146 H Lactic Acid Calcium 8.1 L Phosphorus Magnesium C-Reactive Protein Total Protein Albumin Triglycerides HDL Cholesterol Urine WBC (Auto) Urine Creatinine Urine Total Protein Vancomycin Trough Rheumatoid Factor Complement C4 Crossmatch 09/16/16 09/16/16 09/16/16 12:04 12:10 13:55 WBC RBC Hgb Hct MCV MCH MCHC RDW Plt Count Lymph % (Auto) [place] % (Auto) Lymph # [place] # Seg Neutrophils % Seg Neuts % (Manual) Lymphocytes % (Manual) Monocytes % (Manual) Eosinophils % (Manual) Basophils % (Manual) Seg Neutrophils # Seg Neutrophils # Man Lymphocytes # (Manual) Monocytes # (Manual) Eosinophils # (Manual) Fibrinogen dRVVT Confirm Interp Factor V Activity POC ABG pH POC ABG pCO2 32.9 L POC ABG pO2 Sodium Potassium Chloride Carbon Dioxide BUN Creatinine Glucose POC Glucose 185 H Lactic Acid Calcium Phosphorus Magnesium C-Reactive Protein Total Protein Albumin Triglycerides HDL Cholesterol Urine WBC (Auto) Urine Creatinine Urine Total Protein Vancomycin Trough Rheumatoid Factor Complement C4 Crossmatch See Detail 09/16/16 09/16/16 09/16/16 17:55 19:19 23:48 WBC RBC Hgb Hct MCV MCH MCHC RDW Plt Count Lymph % (Auto) [place] % (Auto) Lymph # [place] # Seg Neutrophils % Seg Neuts % (Manual) Lymphocytes % (Manual) Monocytes % (Manual) Eosinophils % (Manual) Basophils % (Manual) Seg Neutrophils # Seg Neutrophils # Man Lymphocytes # (Manual) Monocytes # (Manual) Eosinophils # (Manual) Fibrinogen dRVVT Confirm Interp Factor V Activity POC ABG pH POC ABG pCO2 POC ABG pO2 Sodium Potassium Chloride Carbon Dioxide BUN Creatinine Glucose POC Glucose 222 H 107 H Lactic Acid Calcium Phosphorus Magnesium C-Reactive Protein Total Protein Albumin Triglycerides HDL Cholesterol Urine WBC (Auto) Urine Creatinine 47.4 H Urine Total Protein 16 H Vancomycin Trough Rheumatoid Factor Complement C4 Crossmatch 09/17/16 09/17/16 09/17/16 03:45 03:45 04:55 WBC 19.6 H RBC 3.41 L Hgb 8.5 L Hct 26.7 L MCV 78 L MCH 25 L MCHC RDW 19.9 H Plt Count Lymph % (Auto) 9.3 L [place] % (Auto) Lymph # [place] # 1.2 H Seg Neutrophils % 83.9 H Seg Neuts % (Manual) Lymphocytes % (Manual) Monocytes % (Manual) Eosinophils % (Manual) Basophils % (Manual) Seg Neutrophils # 16.4 H Seg Neutrophils # Man Lymphocytes # (Manual) Monocytes # (Manual) Eosinophils # (Manual) Fibrinogen dRVVT Confirm Interp Factor V Activity POC ABG pH POC ABG pCO2 POC ABG pO2 Sodium 146 H Potassium 5.1 H Chloride 110.9 H Carbon Dioxide 16 L BUN 146 H Creatinine 4.0 H Glucose 108 H POC Glucose 133 H Lactic Acid Calcium Phosphorus Magnesium 3.00 H C-Reactive Protein Total Protein Albumin Triglycerides HDL Cholesterol Urine WBC (Auto) Urine Creatinine Urine Total Protein Vancomycin Trough Rheumatoid Factor Complement C4 Crossmatch 09/17/16 09/17/16 09/17/16 11:15 17:33 23:47 WBC RBC Hgb Hct MCV MCH MCHC RDW Plt Count Lymph % (Auto) [place] % (Auto) Lymph # [place] # Seg Neutrophils % Seg Neuts % (Manual) Lymphocytes % (Manual) Monocytes % (Manual) Eosinophils % (Manual) Basophils % (Manual) Seg Neutrophils # Seg Neutrophils # Man Lymphocytes # (Manual) Monocytes # (Manual) Eosinophils # (Manual) Fibrinogen dRVVT Confirm Interp Factor V Activity POC ABG pH POC ABG pCO2 POC ABG pO2 Sodium Potassium Chloride Carbon Dioxide BUN Creatinine Glucose POC Glucose 176 H 246 H 148 H Lactic Acid Calcium Phosphorus Magnesium C-Reactive Protein Total Protein Albumin Triglycerides HDL Cholesterol Urine WBC (Auto) Urine Creatinine Urine Total Protein Vancomycin Trough Rheumatoid Factor Complement C4 Crossmatch 09/18/16 09/18/16 09/18/16 05:33 08:31 08:31 WBC 18.0 H RBC 3.17 L Hgb 9.0 L Hct 25.7 L MCV MCH MCHC 35 H RDW 20.4 H Plt Count Lymph % (Auto) [place] % (Auto) Lymph # [place] # Seg Neutrophils % Seg Neuts % (Manual) Lymphocytes % (Manual) Monocytes % (Manual) Eosinophils % (Manual) Basophils % (Manual) Seg Neutrophils # Seg Neutrophils # Man Lymphocytes # (Manual) Monocytes # (Manual) Eosinophils # (Manual) Fibrinogen dRVVT Confirm Interp Factor V Activity POC ABG pH POC ABG pCO2 POC ABG pO2 Sodium Potassium Chloride Carbon Dioxide 15 L BUN 124 H Creatinine 3.8 H Glucose POC Glucose 120 H Lactic Acid Calcium 8.1 L Phosphorus Magnesium C-Reactive Protein Total Protein Albumin Triglycerides HDL Cholesterol Urine WBC (Auto) Urine Creatinine Urine Total Protein Vancomycin Trough Rheumatoid Factor Complement C4 Crossmatch 09/18/16 09/18/16 09/18/16 12:03 15:34 17:50 WBC RBC Hgb Hct MCV MCH MCHC RDW Plt Count Lymph % (Auto) [place] % (Auto) Lymph # [place] # Seg Neutrophils % Seg Neuts % (Manual) Lymphocytes % (Manual) Monocytes % (Manual) Eosinophils % (Manual) Basophils % (Manual) Seg Neutrophils # Seg Neutrophils # Man Lymphocytes # (Manual) Monocytes # (Manual) Eosinophils # (Manual) Fibrinogen dRVVT Confirm Interp Factor V Activity POC ABG pH POC ABG pCO2 25.7 L POC ABG pO2 66 L Sodium Potassium Chloride Carbon Dioxide BUN Creatinine Glucose POC Glucose 156 H 220 H Lactic Acid Calcium Phosphorus Magnesium C-Reactive Protein Total Protein Albumin Triglycerides HDL Cholesterol Urine WBC (Auto) Urine Creatinine Urine Total Protein Vancomycin Trough Rheumatoid Factor Complement C4 Crossmatch 09/19/16 09/19/16 09/19/16 06:21 09:50 09:50 WBC 17.1 H RBC 3.49 L Hgb 9.0 L Hct 28.1 L MCV MCH 26 L MCHC RDW 20.8 H Plt Count Lymph % (Auto) 11.5 L [place] % (Auto) 7.5 H Lymph # [place] # 1.3 H Seg Neutrophils % 79.8 H Seg Neuts % (Manual) Lymphocytes % (Manual) Monocytes % (Manual) Eosinophils % (Manual) Basophils % (Manual) Seg Neutrophils # 13.7 H Seg Neutrophils # Man Lymphocytes # (Manual) Monocytes # (Manual) Eosinophils # (Manual) Fibrinogen dRVVT Confirm Interp Factor V Activity POC ABG pH POC ABG pCO2 POC ABG pO2 Sodium Potassium Chloride 108.6 H Carbon Dioxide 15 L BUN 125 H Creatinine 4.1 H Glucose 124 H POC Glucose 119 H Lactic Acid Calcium Phosphorus Magnesium C-Reactive Protein Total Protein Albumin Triglycerides HDL Cholesterol Urine WBC (Auto) Urine Creatinine Urine Total Protein Vancomycin Trough Rheumatoid Factor Complement C4 Crossmatch 09/19/16 09/19/16 09/19/16 11:25 17:53 23:36 WBC RBC Hgb Hct MCV MCH MCHC RDW Plt Count Lymph % (Auto) [place] % (Auto) Lymph # [place] # Seg Neutrophils % Seg Neuts % (Manual) Lymphocytes % (Manual) Monocytes % (Manual) Eosinophils % (Manual) Basophils % (Manual) Seg Neutrophils # Seg Neutrophils # Man Lymphocytes # (Manual) Monocytes # (Manual) Eosinophils # (Manual) Fibrinogen dRVVT Confirm Interp Factor V Activity POC ABG pH POC ABG pCO2 POC ABG pO2 Sodium Potassium Chloride Carbon Dioxide BUN Creatinine Glucose POC Glucose 160 H 245 H 121 H Lactic Acid Calcium Phosphorus Magnesium C-Reactive Protein Total Protein Albumin Triglycerides HDL Cholesterol Urine WBC (Auto) Urine Creatinine Urine Total Protein Vancomycin Trough Rheumatoid Factor Complement C4 Crossmatch 09/20/16 09/20/16 09/20/16 04:10 04:10 04:10 WBC 17.0 H RBC 3.21 L Hgb 8.2 L Hct 25.5 L MCV MCH 26 L MCHC RDW 20.9 H Plt Count Lymph % (Auto) [place] % (Auto) Lymph # [place] # Seg Neutrophils % Seg Neuts % (Manual) Lymphocytes % (Manual) Monocytes % (Manual) Eosinophils % (Manual) Basophils % (Manual) Seg Neutrophils # Seg Neutrophils # Man Lymphocytes # (Manual) Monocytes # (Manual) Eosinophils # (Manual) Fibrinogen dRVVT Confirm Interp Factor V Activity POC ABG pH POC ABG pCO2 POC ABG pO2 Sodium Potassium Chloride 111.0 H Carbon Dioxide 16 L BUN 129 H Creatinine 3.7 H Glucose 115 H POC Glucose Lactic Acid Calcium 8.2 L Phosphorus Magnesium C-Reactive Protein Total Protein Albumin Triglycerides 243 H HDL Cholesterol Urine WBC (Auto) Urine Creatinine Urine Total Protein Vancomycin Trough Rheumatoid Factor Complement C4 Crossmatch 09/20/16 09/20/16 09/20/16 05:40 11:52 16:50 WBC RBC Hgb Hct MCV MCH MCHC RDW Plt Count Lymph % (Auto) [place] % (Auto) Lymph # [place] # Seg Neutrophils % Seg Neuts % (Manual) Lymphocytes % (Manual) Monocytes % (Manual) Eosinophils % (Manual) Basophils % (Manual) Seg Neutrophils # Seg Neutrophils # Man Lymphocytes # (Manual) Monocytes # (Manual) Eosinophils # (Manual) Fibrinogen dRVVT Confirm Interp Factor V Activity POC ABG pH POC ABG pCO2 POC ABG pO2 Sodium Potassium Chloride Carbon Dioxide BUN Creatinine Glucose POC Glucose 131 H 183 H 236 H Lactic Acid Calcium Phosphorus Magnesium C-Reactive Protein Total Protein Albumin Triglycerides HDL Cholesterol Urine WBC (Auto) Urine Creatinine Urine Total Protein Vancomycin Trough Rheumatoid Factor Complement C4 Crossmatch 09/20/16 09/21/16 09/21/16 23:51 03:30 04:44 WBC RBC Hgb Hct MCV MCH MCHC RDW Plt Count Lymph % (Auto) [place] % (Auto) Lymph # [place] # Seg Neutrophils % Seg Neuts % (Manual) Lymphocytes % (Manual) Monocytes % (Manual) Eosinophils % (Manual) Basophils % (Manual) Seg Neutrophils # Seg Neutrophils # Man Lymphocytes # (Manual) Monocytes # (Manual) Eosinophils # (Manual) Fibrinogen dRVVT Confirm Interp Factor V Activity POC ABG pH POC ABG pCO2 POC ABG pO2 Sodium Potassium Chloride Carbon Dioxide BUN Creatinine Glucose POC Glucose 114 H 141 H Lactic Acid Calcium Phosphorus Magnesium 2.70 H C-Reactive Protein Total Protein Albumin Triglycerides HDL Cholesterol Urine WBC (Auto) Urine Creatinine Urine Total Protein Vancomycin Trough Rheumatoid Factor Complement C4 Crossmatch 09/21/16 09/21/16 09/21/16 07:45 07:45 10:01 WBC 13.8 H RBC 2.94 L Hgb 7.5 L Hct 23.5 L MCV MCH 26 L MCHC RDW 21.2 H Plt Count Lymph % (Auto) 6.9 L [place] % (Auto) 9.4 H Lymph # 0.9 L [place] # 1.3 H Seg Neutrophils % 83.2 H Seg Neuts % (Manual) Lymphocytes % (Manual) Monocytes % (Manual) Eosinophils % (Manual) Basophils % (Manual) Seg Neutrophils # 11.5 H Seg Neutrophils # Man Lymphocytes # (Manual) Monocytes # (Manual) Eosinophils # (Manual) Fibrinogen dRVVT Confirm Interp Factor V Activity POC ABG pH 7.308 L POC ABG pCO2 31.9 L POC ABG pO2 148 H Sodium 147 H Potassium Chloride 114.2 H Carbon Dioxide 15 L BUN 120 H Creatinine 3.9 H Glucose 156 H POC Glucose Lactic Acid Calcium 8.2 L Phosphorus Magnesium C-Reactive Protein Total Protein Albumin Triglycerides HDL Cholesterol Urine WBC (Auto) Urine Creatinine Urine Total Protein Vancomycin Trough Rheumatoid Factor Complement C4 Crossmatch 09/21/16 09/21/16 09/21/16 12:00 12:03 13:00 WBC RBC Hgb Hct MCV MCH MCHC RDW Plt Count Lymph % (Auto) [place] % (Auto) Lymph # [place] # Seg Neutrophils % Seg Neuts % (Manual) Lymphocytes % (Manual) Monocytes % (Manual) Eosinophils % (Manual) Basophils % (Manual) Seg Neutrophils # Seg Neutrophils # Man Lymphocytes # (Manual) Monocytes # (Manual) Eosinophils # (Manual) Fibrinogen dRVVT Confirm Interp Factor V Activity POC ABG pH POC ABG pCO2 POC ABG pO2 Sodium Potassium Chloride Carbon Dioxide BUN Creatinine Glucose POC Glucose 163 H Lactic Acid Calcium Phosphorus Magnesium C-Reactive Protein Total Protein Albumin Triglycerides HDL Cholesterol Urine WBC (Auto) Urine Creatinine 54.8 H Urine Total Protein Vancomycin Trough 2.3 L Rheumatoid Factor Complement C4 Crossmatch 09/21/16 09/21/16 09/22/16 16:51 23:17 06:27 WBC RBC Hgb Hct MCV MCH MCHC RDW Plt Count Lymph % (Auto) [place] % (Auto) Lymph # [place] # Seg Neutrophils % Seg Neuts % (Manual) Lymphocytes % (Manual) Monocytes % (Manual) Eosinophils % (Manual) Basophils % (Manual) Seg Neutrophils # Seg Neutrophils # Man Lymphocytes # (Manual) Monocytes # (Manual) Eosinophils # (Manual) Fibrinogen dRVVT Confirm Interp Factor V Activity POC ABG pH POC ABG pCO2 POC ABG pO2 Sodium Potassium Chloride Carbon Dioxide BUN Creatinine Glucose POC Glucose 206 H 114 H 115 H Lactic Acid Calcium Phosphorus Magnesium C-Reactive Protein Total Protein Albumin Triglycerides HDL Cholesterol Urine WBC (Auto) Urine Creatinine Urine Total Protein Vancomycin Trough Rheumatoid Factor Complement C4 Crossmatch 09/22/16 09/22/16 09/22/16 07:50 07:50 12:00 WBC 17.8 H RBC 3.04 L Hgb 8.0 L Hct 24.7 L MCV MCH 26 L MCHC RDW 21.6 H Plt Count Lymph % (Auto) [place] % (Auto) Lymph # [place] # Seg Neutrophils % Seg Neuts % (Manual) Lymphocytes % (Manual) Monocytes % (Manual) Eosinophils % (Manual) Basophils % (Manual) Seg Neutrophils # Seg Neutrophils # Man Lymphocytes # (Manual) Monocytes # (Manual) Eosinophils # (Manual) Fibrinogen dRVVT Confirm Interp Factor V Activity POC ABG pH POC ABG pCO2 POC ABG pO2 Sodium 150 H Potassium Chloride 118.2 H Carbon Dioxide 14 L BUN 111 H Creatinine 3.7 H Glucose 157 H POC Glucose 183 H Lactic Acid Calcium Phosphorus Magnesium C-Reactive Protein Total Protein Albumin Triglycerides HDL Cholesterol Urine WBC (Auto) Urine Creatinine Urine Total Protein Vancomycin Trough Rheumatoid Factor Complement C4 Crossmatch 09/22/16 09/22/16 09/23/16 17:29 23:10 05:00 WBC 19.2 H RBC 3.13 L Hgb 8.0 L Hct 25.2 L MCV MCH 26 L MCHC RDW 22.1 H Plt Count Lymph % (Auto) [place] % (Auto) Lymph # [place] # Seg Neutrophils % Seg Neuts % (Manual) 92.0 H Lymphocytes % (Manual) 3.0 L Monocytes % (Manual) Eosinophils % (Manual) Basophils % (Manual) Seg Neutrophils # Seg Neutrophils # Man 17.7 H Lymphocytes # (Manual) 0.6 L Monocytes # (Manual) Eosinophils # (Manual) Fibrinogen dRVVT Confirm Interp Factor V Activity POC ABG pH POC ABG pCO2 POC ABG pO2 Sodium Potassium Chloride Carbon Dioxide BUN Creatinine Glucose POC Glucose 197 H 169 H Lactic Acid Calcium Phosphorus Magnesium C-Reactive Protein Total Protein Albumin Triglycerides HDL Cholesterol Urine WBC (Auto) Urine Creatinine Urine Total Protein Vancomycin Trough Rheumatoid Factor Complement C4 Crossmatch 09/23/16 09/23/16 09/23/16 05:00 05:00 05:10 WBC RBC Hgb Hct MCV MCH MCHC RDW Plt Count Lymph % (Auto) [place] % (Auto) Lymph # [place] # Seg Neutrophils % Seg Neuts % (Manual) Lymphocytes % (Manual) Monocytes % (Manual) Eosinophils % (Manual) Basophils % (Manual) Seg Neutrophils # Seg Neutrophils # Man Lymphocytes # (Manual) Monocytes # (Manual) Eosinophils # (Manual) Fibrinogen dRVVT Confirm Interp Factor V Activity POC ABG pH POC ABG pCO2 POC ABG pO2 Sodium 147 H Potassium 3.2 L Chloride 115.7 H Carbon Dioxide 13 L BUN 111 H Creatinine 3.8 H Glucose 194 H POC Glucose 188 H Lactic Acid Calcium 7.3 L D Phosphorus Magnesium C-Reactive Protein 3.20 H Total Protein Albumin Triglycerides HDL Cholesterol Urine WBC (Auto) Urine Creatinine Urine Total Protein Vancomycin Trough Rheumatoid Factor Complement C4 Crossmatch 09/23/16 09/23/16 09/23/16 11:37 12:29 18:01 WBC RBC Hgb Hct MCV MCH MCHC RDW Plt Count Lymph % (Auto) [place] % (Auto) Lymph # [place] # Seg Neutrophils % Seg Neuts % (Manual) Lymphocytes % (Manual) Monocytes % (Manual) Eosinophils % (Manual) Basophils % (Manual) Seg Neutrophils # Seg Neutrophils # Man Lymphocytes # (Manual) Monocytes # (Manual) Eosinophils # (Manual) Fibrinogen dRVVT Confirm Interp Factor V Activity POC ABG pH POC ABG pCO2 18.9 L POC ABG pO2 143 H Sodium Potassium Chloride Carbon Dioxide BUN Creatinine Glucose POC Glucose 153 H 108 H Lactic Acid Calcium Phosphorus Magnesium C-Reactive Protein Total Protein Albumin Triglycerides HDL Cholesterol Urine WBC (Auto) Urine Creatinine Urine Total Protein Vancomycin Trough Rheumatoid Factor Complement C4 Crossmatch 09/23/16 09/23/16 09/24/16 21:19 23:43 05:16 WBC RBC Hgb Hct MCV MCH MCHC RDW Plt Count Lymph % (Auto) [place] % (Auto) Lymph # [place] # Seg Neutrophils % Seg Neuts % (Manual) Lymphocytes % (Manual) Monocytes % (Manual) Eosinophils % (Manual) Basophils % (Manual) Seg Neutrophils # Seg Neutrophils # Man Lymphocytes # (Manual) Monocytes # (Manual) Eosinophils # (Manual) Fibrinogen dRVVT Confirm Interp Factor V Activity POC ABG pH POC ABG pCO2 17.3 L POC ABG pO2 112 H Sodium Potassium Chloride Carbon Dioxide BUN Creatinine Glucose POC Glucose 143 H 164 H Lactic Acid Calcium Phosphorus Magnesium C-Reactive Protein Total Protein Albumin Triglycerides HDL Cholesterol Urine WBC (Auto) Urine Creatinine Urine Total Protein Vancomycin Trough Rheumatoid Factor Complement C4 Crossmatch 09/24/16 09/24/16 09/24/16 05:21 11:58 17:06 WBC RBC Hgb Hct MCV MCH MCHC RDW Plt Count Lymph % (Auto) [place] % (Auto) Lymph # [place] # Seg Neutrophils % Seg Neuts % (Manual) Lymphocytes % (Manual) Monocytes % (Manual) Eosinophils % (Manual) Basophils % (Manual) Seg Neutrophils # Seg Neutrophils # Man Lymphocytes # (Manual) Monocytes # (Manual) Eosinophils # (Manual) Fibrinogen dRVVT Confirm Interp Factor V Activity POC ABG pH POC ABG pCO2 POC ABG pO2 Sodium Potassium Chloride Carbon Dioxide 10 L BUN 103 H Creatinine 4.3 H Glucose 163 H POC Glucose 173 H 167 H Lactic Acid Calcium 6.5 L Phosphorus Magnesium C-Reactive Protein Total Protein Albumin Triglycerides HDL Cholesterol Urine WBC (Auto) Urine Creatinine Urine Total Protein Vancomycin Trough Rheumatoid Factor Complement C4 Crossmatch 09/24/16 09/24/16 09/24/16 20:15 21:02 23:48 WBC RBC Hgb Hct MCV MCH MCHC RDW Plt Count Lymph % (Auto) [place] % (Auto) Lymph # [place] # Seg Neutrophils % Seg Neuts % (Manual) Lymphocytes % (Manual) Monocytes % (Manual) Eosinophils % (Manual) Basophils % (Manual) Seg Neutrophils # Seg Neutrophils # Man Lymphocytes # (Manual) Monocytes # (Manual) Eosinophils # (Manual) Fibrinogen dRVVT Confirm Interp Factor V Activity POC ABG pH 7.288 L POC ABG pCO2 30.2 L 21.5 L POC ABG pO2 32 L 39 L Sodium Potassium Chloride Carbon Dioxide BUN Creatinine Glucose POC Glucose 109 H Lactic Acid Calcium Phosphorus Magnesium C-Reactive Protein Total Protein Albumin Triglycerides HDL Cholesterol Urine WBC (Auto) Urine Creatinine Urine Total Protein Vancomycin Trough Rheumatoid Factor Complement C4 Crossmatch 09/25/16 09/25/16 09/25/16 04:20 04:20 04:20 WBC RBC 2.58 L Hgb 7.0 L Hct 21.0 L MCV MCH 27 L MCHC RDW 23.8 H Plt Count Lymph % (Auto) [place] % (Auto) Lymph # [place] # Seg Neutrophils % Seg Neuts % (Manual) Lymphocytes % (Manual) 12.0 L Monocytes % (Manual) Eosinophils % (Manual) 7.0 H Basophils % (Manual) 2.0 H Seg Neutrophils # Seg Neutrophils # Man Lymphocytes # (Manual) 0.9 L Monocytes # (Manual) Eosinophils # (Manual) 0.5 H Fibrinogen dRVVT Confirm Interp Factor V Activity POC ABG pH POC ABG pCO2 POC ABG pO2 Sodium Potassium Chloride Carbon Dioxide 15 L BUN 72 H Creatinine 3.8 H Glucose POC Glucose Lactic Acid Calcium 6.0 L Phosphorus 4.60 H Magnesium 1.60 L C-Reactive Protein Total Protein Albumin Triglycerides HDL Cholesterol Urine WBC (Auto) Urine Creatinine Urine Total Protein Vancomycin Trough Rheumatoid Factor Complement C4 Crossmatch 09/25/16 09/25/16 09/25/16 04:57 08:02 10:30 WBC RBC Hgb Hct MCV MCH MCHC RDW Plt Count Lymph % (Auto) [place] % (Auto) Lymph # [place] # Seg Neutrophils % Seg Neuts % (Manual) Lymphocytes % (Manual) Monocytes % (Manual) Eosinophils % (Manual) Basophils % (Manual) Seg Neutrophils # Seg Neutrophils # Man Lymphocytes # (Manual) Monocytes # (Manual) Eosinophils # (Manual) Fibrinogen dRVVT Confirm Interp Factor V Activity POC ABG pH POC ABG pCO2 24.7 L POC ABG pO2 152 H Sodium Potassium Chloride Carbon Dioxide BUN Creatinine Glucose POC Glucose 113 H Lactic Acid Calcium Phosphorus Magnesium C-Reactive Protein Total Protein Albumin Triglycerides HDL Cholesterol Urine WBC (Auto) Urine Creatinine Urine Total Protein Vancomycin Trough Rheumatoid Factor Complement C4 Crossmatch See Detail 09/25/16 09/25/16 09/25/16 12:05 17:44 23:47 WBC RBC Hgb Hct MCV MCH MCHC RDW Plt Count Lymph % (Auto) [place] % (Auto) Lymph # [place] # Seg Neutrophils % Seg Neuts % (Manual) Lymphocytes % (Manual) Monocytes % (Manual) Eosinophils % (Manual) Basophils % (Manual) Seg Neutrophils # Seg Neutrophils # Man Lymphocytes # (Manual) Monocytes # (Manual) Eosinophils # (Manual) Fibrinogen dRVVT Confirm Interp Factor V Activity POC ABG pH POC ABG pCO2 POC ABG pO2 Sodium Potassium Chloride Carbon Dioxide BUN Creatinine Glucose POC Glucose 117 H 119 H 150 H Lactic Acid Calcium Phosphorus Magnesium C-Reactive Protein Total Protein Albumin Triglycerides HDL Cholesterol Urine WBC (Auto) Urine Creatinine Urine Total Protein Vancomycin Trough Rheumatoid Factor Complement C4 Crossmatch 09/26/16 09/26/16 09/26/16 04:25 04:25 04:25 WBC RBC 2.65 L Hgb 7.4 L Hct 21.6 L MCV MCH MCHC RDW 22.5 H Plt Count Lymph % (Auto) [place] % (Auto) Lymph # [place] # Seg Neutrophils % Seg Neuts % (Manual) Lymphocytes % (Manual) 6.0 L Monocytes % (Manual) Eosinophils % (Manual) 11.0 H Basophils % (Manual) Seg Neutrophils # Seg Neutrophils # Man Lymphocytes # (Manual) 0.4 L Monocytes # (Manual) Eosinophils # (Manual) 0.6 H Fibrinogen dRVVT Confirm Interp Factor V Activity POC ABG pH POC ABG pCO2 POC ABG pO2 Sodium Potassium Chloride 97.0 L Carbon Dioxide 19 L BUN 43 H Creatinine 2.6 H Glucose 130 H POC Glucose Lactic Acid 4.40 H* Calcium 6.7 L Phosphorus Magnesium C-Reactive Protein Total Protein Albumin Triglycerides HDL Cholesterol Urine WBC (Auto) Urine Creatinine Urine Total Protein Vancomycin Trough Rheumatoid Factor Complement C4 Crossmatch 09/26/16 09/26/16 05:20 11:44 WBC RBC Hgb Hct MCV MCH MCHC RDW Plt Count Lymph % (Auto) [place] % (Auto) Lymph # [place] # Seg Neutrophils % Seg Neuts % (Manual) Lymphocytes % (Manual) Monocytes % (Manual) Eosinophils % (Manual) Basophils % (Manual) Seg Neutrophils # Seg Neutrophils # Man Lymphocytes # (Manual) Monocytes # (Manual) Eosinophils # (Manual) Fibrinogen dRVVT Confirm Interp Factor V Activity POC ABG pH POC ABG pCO2 POC ABG pO2 Sodium Potassium Chloride Carbon Dioxide BUN Creatinine Glucose POC Glucose 121 H 128 H Lactic Acid Calcium Phosphorus Magnesium C-Reactive Protein Total Protein Albumin Triglycerides HDL Cholesterol Urine WBC (Auto) Urine Creatinine Urine Total Protein Vancomycin Trough Rheumatoid Factor Complement C4 Crossmatch Allied health notes reviewed: RT
[2016-09-26] MEDS: NEO-SYNEPHRINE 100 MG in NACL 0.9% 90 ML IV SCH ×2 (12:44→21:10)
[2016-09-26] MEDS: MERREM 1,000 MG in NACL 0.9% 100 ML IV SCH ×2 (12:55→21:42)
[2016-09-26] MEDS ORDERED: ALBURX 25% (ALBUMIN) IV ONE (13:30)
[2016-09-26] MEDS ORDERED: DIFLUCAN 200 ML IV ONE (14:24)
[2016-09-26] MEDS: D5W 1,000 ML with SODIUM BICARBONATE 75 MEQ IV SCH (14:42)
[2016-09-27] MEDS: CORDARONE 900 MG in D5W 482 ML IV SCH (00:50)
[2016-09-27] MEDS: NEO-SYNEPHRINE 100 MG in NACL 0.9% 90 ML IV SCH ×6 (00:50→23:58)
[2016-09-27] MEDS: FLAGYL 500 MG/100 ML 500 MG/100 ML BAG IV SCH ×3 (00:51→19:19)
[2016-09-27] MEDS: VANCOMYCIN PO FEEDTUBE SCH ×5 (00:51→23:52)
[2016-09-27] MEDS: D5W 1,000 ML with SODIUM BICARBONATE 75 MEQ IV SCH (04:56)
[2016-09-27 05:22] LABS: Hematocrit 20.7 % (30.3-42.9); Hemoglobin 6.8 gm/dl (10.1-14.3); Mean Corpuscular HGB Conc 33 % (30-34); Mean Corpuscular Hemoglobin 27 pg (28-32); Mean Corpuscular Volume 83 fl (79-97); Platelet Count 178 K/mm3 (140-440); Red Blood Count 2.49 M/mm3 (3.65-5.03)
[2016-09-27 05:25] LABS: Red Cell Distribution Width 22.1 % (13.2-15.2)
[2016-09-27 05:46] LABS: BUN/Creatinine Ratio 13.63; Calcium 7.3 mg/dL (8.4-10.2)
[2016-09-27 06:29] LABS: Anisocytosis 1+; Band Neutrophils # (Manual) 2.8 K/mm3; Basophils % (Manual) 0 % (0.0-1.8); Total Cells Counted 100; Toxic Vacuolation Few
[2016-09-27 06:30] LABS: Dohle Bodies Few; Platelet Estimate Consistent w Auto
[2016-09-27] MEDS: HumuLIN R SUB-Q SCH ×4 (06:38→19:39)
[2016-09-27] MEDS: HEPARIN SUB-Q SCH ×3 (06:46→22:32)
--- NOTE | 2016-09-27 07:32 | XRay Report ---
AP CHEST: HISTORY: Followup respiratory failure The tracheostomy, left arm PICC and nasogastric tube remain in adequate position. There is poor pulmonary inflation but the lungs are clear. Heart size is at the upper limits of normal. No acute change since yesterday's exam. IMPRESSION: No change.
[2016-09-27] MEDS ORDERED: POTASSIUM CHLORIDE FEEDTUBE ONE (08:00)
--- NOTE | 2016-09-27 08:33 | Progress Note ---
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 Objective - Vital Signs Vital signs: Vital Signs - 12hr 09/26/16 09/26/16 09/26/16 20:45 21:00 21:15 Temperature Pulse Rate 128 H 114 H 140 H Respiratory 30 H 27 H 20 Rate Blood Pressure 118/76 107/74 102/75 O2 Sat by Pulse 100 100 100 Oximetry O2 Sat by Pulse Oximetry [ Assessment] 09/26/16 09/26/16 09/26/16 21:31 21:45 22:00 Temperature Pulse Rate 125 H 132 H 127 H Respiratory 33 H 25 H 25 H Rate Blood Pressure 126/66 121/72 123/72 O2 Sat by Pulse 99 100 99 Oximetry O2 Sat by Pulse Oximetry [ Assessment] 09/26/16 09/26/16 09/26/16 22:05 22:15 22:20 Temperature Pulse Rate 134 H 133 H Respiratory 28 H 33 H Rate Blood Pressure 123/72 123/72 O2 Sat by Pulse 99 97 Oximetry O2 Sat by Pulse 99 Oximetry [ Assessment] 09/26/16 09/26/16 09/26/16 22:30 22:45 23:00 Temperature Pulse Rate 125 H 131 H 121 H Respiratory 26 H 28 H 22 Rate Blood Pressure 142/64 142/64 127/67 O2 Sat by Pulse 98 99 99 Oximetry O2 Sat by Pulse Oximetry [ Assessment] 09/26/16 09/26/16 09/26/16 23:15 23:30 23:45 Temperature Pulse Rate 117 H 122 H 117 H Respiratory 26 H 30 H 25 H Rate Blood Pressure 115/67 119/63 114/62 O2 Sat by Pulse 99 100 100 Oximetry O2 Sat by Pulse Oximetry [ Assessment] 09/27/16 09/27/16 09/27/16 00:00 00:04 00:15 Temperature 98.3 F Pulse Rate 131 H 124 H 109 H Respiratory 29 H 30 H Rate Blood Pressure 110/53 114/62 99/51 O2 Sat by Pulse 100 100 100 Oximetry O2 Sat by Pulse Oximetry [ Assessment] 09/27/16 09/27/16 09/27/16 00:30 00:45 01:00 Temperature Pulse Rate 122 H 119 H 119 H Respiratory 28 H 31 H 26 H Rate Blood Pressure 98/52 106/48 95/57 O2 Sat by Pulse 100 100 100 Oximetry O2 Sat by Pulse Oximetry [ Assessment] 09/27/16 09/27/16 09/27/16 01:15 01:31 01:45 Temperature Pulse Rate 113 H 135 H 121 H Respiratory 22 34 H 24 Rate Blood Pressure 98/64 125/73 109/64 O2 Sat by Pulse 100 100 99 Oximetry O2 Sat by Pulse Oximetry [ Assessment] 09/27/16 09/27/16 09/27/16 02:00 02:15 02:30 Temperature Pulse Rate 132 H 125 H 127 H Respiratory 34 H 29 H 21 Rate Blood Pressure 136/76 128/61 131/63 O2 Sat by Pulse 98 99 99 Oximetry O2 Sat by Pulse Oximetry [ Assessment] 09/27/16 09/27/16 09/27/16 02:45 03:00 03:15 Temperature Pulse Rate 128 H 152 H 126 H Respiratory 28 H 33 H 31 H Rate Blood Pressure 120/61 124/71 113/77 O2 Sat by Pulse 99 98 100 Oximetry O2 Sat by Pulse Oximetry [ Assessment] 09/27/16 09/27/16 09/27/16 03:30 03:45 04:00 Temperature 98.6 F Pulse Rate 135 H 127 H Respiratory 34 H 35 H Rate Blood Pressure 128/73 123/85 O2 Sat by Pulse 99 98 98 Oximetry O2 Sat by Pulse Oximetry [ Assessment] 09/27/16 09/27/16 09/27/16 04:01 04:15 04:31 Temperature Pulse Rate 137 H 140 H 137 H Respiratory 26 H 39 H Rate Blood Pressure 123/85 123/85 151/97 O2 Sat by Pulse 98 96 97 Oximetry O2 Sat by Pulse Oximetry [ Assessment] 09/27/16 09/27/16 09/27/16 04:45 05:00 05:15 Temperature Pulse Rate 135 H 141 H 131 H Respiratory Rate Blood Pressure 155/88 143/77 129/78 O2 Sat by Pulse 98 98 97 Oximetry O2 Sat by Pulse Oximetry [ Assessment] 09/27/16 09/27/16 09/27/16 05:30 05:45 06:00 Temperature Pulse Rate 138 H 131 H 131 H Respiratory Rate Blood Pressure 145/76 132/69 136/68 O2 Sat by Pulse 98 99 100 Oximetry O2 Sat by Pulse Oximetry [ Assessment] 09/27/16 07:39 Temperature Pulse Rate 131 H Respiratory Rate Blood Pressure 136/68 O2 Sat by Pulse 100 Oximetry O2 Sat by Pulse Oximetry [ Assessment] - General Appearance General appearance: well-developed, intubated (via trach) EENT: other (trach in place) Neck: other (trach) Respiratory: Present: Other (coarse) Cardiology: tachycardia Gastrointestinal: normoactive bowel sounds, no tenderness, no distended, obese Integumentary: no rash Musculoskeletal: other (+edema) - Lab 09/27/16 Unknown 09/27/16 Unknown Most recent lab results Calcium 7.3 mg/dL (8.4-10.2) L 09/27/16 Unknown Phosphorus 4.60 mg/dL (2.5-4.5) H 09/25/16 04:20 Magnesium 1.70 mg/dL (1.7-2.3) 09/26/16 04:25 Urine Creatinine 54.8 mg/dL (0.1-20.0) H 09/21/16 12:00 Urine Sodium 36 mEq/L 09/16/16 19:19 Urine Total Protein 16 mg/dL (5-11.8) H 09/16/16 19:19
[2016-09-27] MEDS ORDERED: NACL 0.9% 500 ML 500 ML IV ONE ×2 (08:57→11:09)
[2016-09-27] MEDS: ASPIRIN PO SCH (09:21)
[2016-09-27] MEDS: SODIUM BICARBONATE PO SCH ×3 (09:21→20:56)
[2016-09-27] MEDS: PLAVIX FEEDTUBE SCH (09:22)
[2016-09-27] MEDS: PROTONIX IV SCH ×2 (09:23→22:32)
[2016-09-27] MEDS: LEVEMIR (NF) SUB-Q SCH (09:23)
[2016-09-27] MEDS: Vasostrict 20 UNIT in NACL 0.9% 100 ML IV SCH ×2 (09:27→21:46)
[2016-09-27] MEDS: REGLAN IV SCH ×3 (09:28→20:55)
[2016-09-27] MEDS ORDERED: NACL 0.9% 100 ML IV PRN (09:49)
[2016-09-27] MEDS ORDERED: DIFLUCAN 200 MG/100 ML BAG IV SCH (10:00)
--- NOTE | 2016-09-27 11:07 | Vascular Lab Report ---
LOWER EXTREMITY VENOUS DUPLEX: REASON FOR EXAM: Swelling of the lower extremities. COMMENTS ON THE RIGHT: All veins visualized are freely compressible without evidence of internal echogenicity. Flow is spontaneous and phasic throughout. COMMENTS ON THE LEFT: All veins visualized are freely compressible without evidence of internal echogenicity. Flow is spontaneous and phasic throughout. IMPRESSION: No evidence of acute or chronic deep venous thrombosis in either lower extremity.
--- NOTE | 2016-09-27 11:11 | Progress Note ---
Assessment and Plan Assessment and plan: --Anemia, hemoglobin today is 6.8 , and dissected one unit of PRBC 2 days ago we will type and cross and transfuse 1 unit of PRBC Closely monitor H&H, GI following --Hypotension/ septic shock on multiple pressors On levophed , titrate systolic blood pressures to more than 100 --Acute on chronic kidney disease stage III , worsening renal function , nephrology following Hemodialysis as needed --Acute hypoxic respiratory failure vent dependent/unable to wean s/p trach and PEG, continue PEG feeds --Paroxysmal A. fib, persistent RVR ,on amiodarone drip Cardiology following --Acute large left MCA CVA status post TPA/encephalopathy Aspirin/statin/supportive care --Aspiration pneumonia Continue vancomycin and Flagyl, ID following --Acute exacerbation of COPD; Nebulizers tapering dose of steroids antibiotics and ventilatory support, pulmonary following --Anemia requiring blood transfusion; closely monitor H&H and transfuse as needed --2 diabetes mellitus; Accu-Chek sliding scale coverage and ADA diet and insulin as needed --Moderate to severe protein calorie malnutrition with albumin of 2.2 Nutritional supplements, tube feeding, supportive care --DVT prophylaxis with heparin --Full CODE STATUS Discharge planning ; LTAC placement when clinically stable Critical Care time 32 minutes The high probability of a clinically significant, sudden or life threatening deterioration of the [cardiovascular, pulmonary, infectious, renal and neurological] system(s) required my full and direct attention, intervention and personal management. The aggregate critical care time was [32] minutes. This time is in addition to time spent performing reported procedures but includes the following: [x] Data Review and interpretation [x] Patient assessment and monitoring of vital signs [x] Documentation [x] Medication orders and management Discussed with family members son and the brother many times in the past of poor prognosis and CODE STATUS, both want aggressive management. They have unrealistic expectations of patient's condition and prognosis Patient is critically ill , if she does not respond to treatment may have cardiorespiratory arrest any time soon Called both son and the brother to discuss patient's condition today, could not reach them Left a message to call back. Very poor prognosis, family aware. History Interval history: Patient seen and evaluated this morning in ICU medical records reviewed Patient is critically ill, hypotensive on pressors, status post tracheostomy on vent Significant drop in his H&H, in acute distress Hospitalist Physical - Constitutional Vitals: Temp Pulse Resp BP Pulse Ox 98.2 F 139 H 39 H 106/52 100 09/27/16 08:00 09/27/16 08:45 09/27/16 04:15 09/27/16 08:45 09/27/16 08:45 General appearance: Present: mild distress, cachectic, other (status post tracheostomy on vent) - EENT Eyes: Present: PERRL, EOM intact - Neck Neck: Present: supple, other (tracheostomy on vent) - Respiratory Respiratory effort: normal Respiratory: bilateral: diminished, rhonchi - Cardiovascular Rhythm: irregularly irregular Heart Sounds: Present: S1 & S2 (tachycardia) - Extremities Extremities: no ischemia Extremity abnormal: edema - Abdominal General gastrointestinal: soft, non-tender, non-distended, normal bowel sounds, other (PEG tube in place) - Integumentary Integumentary: Present: clear, warm - Psychiatric Psychiatric: other (noncommunicative) - Neurologic Neurologic: other (noncommunicative/unresponsive) Results - Labs CBC & Chem 7: 09/28/16 03:45 09/28/16 03:45 Labs: Laboratory Last Values WBC 8.1 K/mm3 (4.5-11.0) 09/27/16 Unknown RBC 2.49 M/mm3 (3.65-5.03) L 09/27/16 Unknown Hgb 6.8 gm/dl (10.1-14.3) L 09/27/16 Unknown Hct 20.7 % (30.3-42.9) L 09/27/16 Unknown MCV 83 fl (79-97) 09/27/16 Unknown MCH 27 pg (28-32) L 09/27/16 Unknown MCHC 33 % (30-34) 09/27/16 Unknown RDW 22.1 % (13.2-15.2) H 09/27/16 Unknown Plt Count 178 K/mm3 (140-440) 09/27/16 Unknown Lymph % (Auto) 6.9 % (13.4-35.0) L 09/21/16 07:45 [place] % (Auto) 9.4 % (0.0-7.3) H 09/21/16 07:45 Eos % (Auto) 0.3 % (0.0-4.3) 09/21/16 07:45 Baso % (Auto) 0.2 % (0.0-1.8) 09/21/16 07:45 Lymph # 0.9 K/mm3 (1.2-5.4) L 09/21/16 07:45 [place] # 1.3 K/mm3 (0.0-0.8) H 09/21/16 07:45 Eos # 0.0 K/mm3 (0.0-0.4) 09/21/16 07:45 Baso # 0.0 K/mm3 (0.0-0.1) 09/21/16 07:45 Add Manual Diff Complete 09/27/16 Unknown Total Counted 100 09/27/16 Unknown Seg Neutrophils % 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 09/23/16 05:00 Seg Neuts % (Manual) 32.0 % (40.0-70.0) L 09/27/16 Unknown Band Neutrophils % 35.0 % 09/27/16 Unknown Lymphocytes % (Manual) 12.0 % (13.4-35.0) L 09/27/16 Unknown Reactive Lymphs % (Man) 0 % 09/27/16 Unknown Monocytes % (Manual) 11.0 % (0.0-7.3) H 09/27/16 Unknown Eosinophils % (Manual) 10.0 % (0.0-4.3) H 09/27/16 Unknown Basophils % (Manual) 0 % (0.0-1.8) 09/27/16 Unknown Metamyelocytes % 0 % 09/27/16 Unknown Myelocytes % 0 % 09/27/16 Unknown Promyelocytes % 0 % 09/27/16 Unknown Blast Cells % 0 % 09/27/16 Unknown Nucleated RBC % Not Reportable 09/27/16 Unknown Seg Neutrophils # 11.5 K/mm3 (1.8-7.7) H 09/21/16 07:45 Seg Neutrophils # Man 2.6 K/mm3 (1.8-7.7) 09/27/16 Unknown Band Neutrophils # 2.8 K/mm3 09/27/16 Unknown Lymphocytes # (Manual) 1.0 K/mm3 (1.2-5.4) L 09/27/16 Unknown Abs React Lymphs (Man) 0.0 K/mm3 09/27/16 Unknown Monocytes # (Manual) 0.9 K/mm3 (0.0-0.8) H 09/27/16 Unknown Eosinophils # (Manual) 0.8 K/mm3 (0.0-0.4) H 09/27/16 Unknown Basophils # (Manual) 0.0 K/mm3 (0.0-0.1) 09/27/16 Unknown Metamyelocytes # 0.0 K/mm3 09/27/16 Unknown Myelocytes # 0.0 K/mm3 09/27/16 Unknown Promyelocytes # 0.0 K/mm3 09/27/16 Unknown Blast Cells # 0.0 K/mm3 09/27/16 Unknown Pathologist Review 09/13/16 04:00 WBC Morphology Not Reportable 09/27/16 Unknown Hypersegmented Neuts Not Reportable 09/27/16 Unknown Hyposegmented Neuts Not Reportable 09/27/16 Unknown Hypogranular Neuts Not Reportable 09/27/16 Unknown Smudge Cells Not Reportable 09/27/16 Unknown Toxic Granulation Not Reportable 09/27/16 Unknown Toxic Vacuolation Few 09/27/16 Unknown Dohle Bodies Few 09/27/16 Unknown Pelger-Huet Anomaly Not Reportable 09/27/16 Unknown Jasmina Rods Not Reportable 09/27/16 Unknown Platelet Estimate Consistent w auto 09/27/16 Unknown Clumped Platelets Not Reportable 09/27/16 Unknown Plt Clumps, EDTA Not Reportable 09/27/16 Unknown Large Platelets Not Reportable 09/27/16 Unknown Giant Platelets Not Reportable 09/27/16 Unknown Platelet Satelliting Not Reportable 09/27/16 Unknown Plt Morphology Comment Not Reportable 09/27/16 Unknown RBC Morphology Not Reportable 09/27/16 Unknown Dimorphic RBCs Not Reportable 09/27/16 Unknown Polychromasia Not Reportable 09/27/16 Unknown Hypochromasia Not Reportable 09/27/16 Unknown Poikilocytosis Not Reportable 09/27/16 Unknown Anisocytosis 1+ 09/27/16 Unknown Microcytosis Not Reportable 09/27/16 Unknown Macrocytosis Not Reportable 09/27/16 Unknown Spherocytes Not Reportable 09/27/16 Unknown Pappenheimer Bodies Not Reportable 09/27/16 Unknown Sickle Cells Not Reportable 09/27/16 Unknown Target Cells Not Reportable 09/27/16 Unknown Tear Drop Cells Not Reportable 09/27/16 Unknown Ovalocytes Not Reportable 09/27/16 Unknown Helmet Cells Not Reportable 09/27/16 Unknown [place] Bodies Not Reportable 09/27/16 Unknown [place] Rings Not Reportable 09/27/16 Unknown Chuck Cells Not Reportable 09/27/16 Unknown Bite Cells Not Reportable 09/27/16 Unknown Crenated Cell Not Reportable 09/27/16 Unknown Elliptocytes Not Reportable 09/27/16 Unknown Acanthocytes (Spur) Not Reportable 09/27/16 Unknown Rouleaux Not Reportable 09/27/16 Unknown Hemoglobin C Crystals Not Reportable 09/27/16 Unknown Schistocytes Not Reportable 09/27/16 Unknown Malaria parasites Not Reportable 09/27/16 Unknown ESR > 140.0 mm/Hr (0-20) 09/08/16 11:48 Jun Bodies Not Reportable 09/27/16 Unknown Hem Pathologist Commnt No 09/27/16 Unknown PT 13.8 Sec. (12.2-14.9) 09/15/16 05:00 INR 1.01 (0.87-1.13) 09/15/16 05:00 APTT 24.4 Sec. (24.2-36.6) 09/15/16 05:00 Thrombin Time 16.8 Sec. (15.1-19.6) 09/03/16 00:10 Fibrinogen 750 mg/dl (211-480) H 09/08/16 11:48 Lupus Anticoagulant see below 09/12/16 09:59 LA PTT Baseline See scanned report 09/12/16 09:59 dRVVT Confirm Interp Positive (Negative) H 09/12/16 09:59 dRVVT Screen 50:50 See scanned report 09/12/16 09:59 dRVVT Mix Interpret See scanned report 09/12/16 09:59 Protein C Antigen 122 % (70-140) 09/08/16 15:35 Free Protein S 97 % normal (50-147) 09/08/16 15:35 Total Protein S 109 % (70-140) 09/08/16 15:35 Antithrombin III Ag 100 % (80-120) 09/08/16 15:35 Factor V Activity 182 % (65-150) H 09/08/16 15:35 POC ABG pH 7.433 (7.35-7.45) 09/26/16 12:12 POC ABG pCO2 27.0 (35-45) L 09/26/16 12:12 POC ABG pO2 69 (80-105) L 09/26/16 12:12 POC ABG HCO3 18.0 09/26/16 12:12 POC ABG Total CO2 19 09/26/16 12:12 POC ABG O2 Sat 95 09/26/16 12:12 POC ABG Base Excess -6 09/26/16 12:12 FiO2 35 % 09/26/16 12:12 Sodium 135 mmol/L (137-145) L 09/27/16 Unknown Potassium 3.7 mmol/L (3.6-5.0) 09/27/16 Unknown Chloride 93.6 mmol/L (98-107) L 09/27/16 Unknown Carbon Dioxide 17 mmol/L (22-30) L 09/27/16 Unknown Anion Gap 28 mmol/L 09/27/16 Unknown BUN 45 mg/dL (7-17) H 09/27/16 Unknown Creatinine 3.3 mg/dL (0.7-1.2) H 09/27/16 Unknown Estimated GFR 18 ml/min 09/27/16 Unknown BUN/Creatinine Ratio 13.63 % 09/27/16 Unknown Glucose 106 mg/dL (65-100) H 09/27/16 Unknown POC Glucose 133 (70-105) H 09/26/16 23:40 Osmolality 351 Mosm/kg 09/16/16 11:47 Lactic Acid 4.10 mmol/L (0.7-2.0) H* 09/27/16 08:20 Calcium 7.3 mg/dL (8.4-10.2) L 09/27/16 Unknown Phosphorus 4.60 mg/dL (2.5-4.5) H 09/25/16 04:20 Magnesium 1.70 mg/dL (1.7-2.3) 09/26/16 04:25 Total Bilirubin 0.30 mg/dL (0.1-1.2) 09/13/16 04:00 AST 20 units/L (5-40) 09/13/16 04:00 ALT 18 units/L (7-56) 09/13/16 04:00 Alkaline Phosphatase 72 units/L (35-129) 09/13/16 04:00 Ammonia 27.0 umol/L (25-60) 09/07/16 08:37 Total Creatine Kinase 67 units/L (30-135) 09/03/16 11:26 CK-MB (CK-2) 1.4 ng/mL (0.0-4.0) 09/03/16 11:26 CK-MB (CK-2) Rel Index 2.0 (0-4) 09/03/16 11:26 Troponin T < 0.010 ng/mL (0.00-0.029) 09/06/16 10:43 C-Reactive Protein 3.20 mg/dL (0.00-1.30) H 09/23/16 05:00 Total Protein 6.2 g/dL (6.3-8.2) L 09/13/16 04:00 Albumin 2.9 g/dL (3.9-5) L 09/13/16 04:00 Albumin/Globulin Ratio 0.9 % 09/13/16 04:00 Triglycerides 243 mg/dL (2-149) H 09/20/16 04:10 Cholesterol 189 mg/dL (50-199) 09/04/16 03:31 LDL Cholesterol Direct 126 mg/dL (50-130) 09/04/16 03:31 HDL Cholesterol 31 mg/dL (40-59) L 09/04/16 03:31 Cholesterol/HDL Ratio 6.09 % 09/04/16 03:31 Angiotensin Convert Enz See scanned report 09/08/16 11:48 TSH 1.010 mlU/mL (0.270-4.200) 09/07/16 08:37 HCG, Qual Negative (Negative) 09/03/16 00:10 Urine Color Yellow (Yellow) 09/09/16 14:13 Urine Turbidity Slightly-cloudy (Clear) 09/09/16 14:13 Urine pH 5.0 (5.0-7.0) 09/09/16 14:13 Ur Specific [place] 1.012 (1.003-1.030) 09/09/16 14:13 Urine Protein 30 mg/dl mg/dL (Negative) 09/09/16 14:13 Urine Glucose (UA) Neg mg/dL (Negative) 09/09/16 14:13 Urine Ketones Neg mg/dL (Negative) 09/09/16 14:13 Urine Blood Lg (Negative) 09/09/16 14:13 Urine Nitrite Neg (Negative) 09/09/16 14:13 Urine Bilirubin Neg (Negative) 09/09/16 14:13 Urine Urobilinogen < 2.0 mg/dL (<2.0) 09/09/16 14:13 Ur Leukocyte Esterase Sm (Negative) 09/09/16 14:13 Urine WBC (Auto) 25.0 /HPF (0.0-6.0) H 09/09/16 14:13 Urine RBC (Auto) > 182.0 /HPF (0.0-6.0) 09/09/16 14:13 Urine Bacteria (Auto) 1+ /HPF (Negative) 09/09/16 14:13 Urine WBC Clumps 2+ /HPF 09/07/16 02:47 Hyaline Casts 4 /LPF 09/07/16 02:47 Urine Mucus Few /HPF 09/09/16 14:13 Urine Eosinophils None seen (None Seen) 09/07/16 16:00 Urine Total Volume 1350 09/21/16 12:00 Urine Creatinine 54.8 mg/dL (0.1-20.0) H 09/21/16 12:00 Height (in) 67.0 inches 09/21/16 12:00 Weight (lb) 92.0 lbs 09/21/16 12:00 Creatinine Clearance 15 09/21/16 12:00 Urine Sodium 36 mEq/L 09/16/16 19:19 Urine Total Protein 16 mg/dL (5-11.8) H 09/16/16 19:19 Vancomycin Trough 2.3 ug/mL (5.0-20.0) L 09/21/16 13:00 Random Vancomycin 2.3 ug/mL (0-40.0) 09/09/16 03:00 Urine Opiates Screen Presumptive negative 09/03/16 15:11 Urine Methadone Screen Presumptive positive 09/03/16 15:11 Ur Barbiturates Screen Presumptive positive 09/03/16 15:11 Ur Phencyclidine Scrn Presumptive negative 09/03/16 15:11 Ur Amphetamines Screen Presumptive negative 09/03/16 15:11 U Benzodiazepines Scrn Presumptive negative 09/03/16 15:11 Urine Cocaine Screen Presumptive negative 09/03/16 15:11 U Marijuana (THC) Screen Presumptive positive 09/03/16 15:11 Drugs of Abuse Note Disclamer 09/03/16 15:11 Rheumatoid Factor 24 IU/ml (0-13) H 09/08/16 11:48 SAHIL Screen Negative (Negative) 09/07/16 09:20 Proteinase 3 (PR3) Ab <1.0 AI (<1.0) 09/07/16 09:20 Myeloperoxidase Ab <1.0 AI (<1.0) 09/07/16 09:20 Sjogren's Antibody <1.0 AI (<1.0) 09/08/16 15:35 Scl-70 Scleroderma Ab <1.0 AI (<1.0) 09/08/16 15:35 Centromere B Antibody <1.0 AI (<1.0) 09/08/16 12:02 Cardiolipid IgG Ab <14 GPL (<=14) 09/12/16 09:59 Cardiolipid IgA Ab <11 APL (<=11) 09/12/16 09:59 Cardiolipid IgM Ab <12 MPL (<=12) 09/12/16 09:59 Complement C3 148 mg/dL (90-180) 09/07/16 09:20 Complement C4 58 mg/dL (16-47) H 09/07/16 09:20 RPR Nonreactive (Nonreactive) 09/08/16 11:48 Hepatitis A IgM Ab Non-reactive (NonReactive) 09/24/16 14:40 Hep Bs Antigen Non-reactive (Negative) 09/24/16 14:40 Hep B Core IgM Ab Non-reactive (NonReactive) 09/24/16 14:40 Hepatitis C Antibody Non-reactive (NonReactive) 09/24/16 14:40 HIV 1&2 Antibody Rapid Non react (Non React) 09/08/16 11:48 HIV P24 Antigen Non react (Non React) 09/08/16 11:48 Blood Type A POSITIVE 09/25/16 10:30 Antibody Screen TNR 09/25/16 10:30 DELORIS Antibody Screen Negative 09/25/16 10:30 Crossmatch See Detail 09/25/16 10:30
--- NOTE | 2016-09-27 11:28 | Progress Note ---
Assessment and Plan Acute hypoxic respiratory failure on mechanical ventilation s/p trach and PEG Acute left MCA CVA echocardiogram demonstrates at least moderate LVH but a normal LV systolic function, EF 50-55%. no thrombus visualized on transthoracic echocardiogram. Hypertension Now patient is hypotensive and on multiple pressors Acute on chronic renal failure Leukocytosis - resolved Diabetes mellitus Anemia requiring transfusion of PRBCs Paroxysmal Afib Rate uncontrolled, on multiple pressors s/p failed cardioversion on 09/25 Plan: We will start IV Digoxin in addition to IV amiodarone for rate control of afib. Subjective Date of service: 09/27/16 Principal diagnosis: Acute resp failure on MVS; S/P Acute CVA; Acute Encephalopathy; JUANITA Interval history: Remains intubated via trach. Remains on multiple pressors. Objective Vital Signs Temp Pulse Pulse Resp BP Pulse Ox Pulse Ox 09/27/16 08:45 139 H 106/52 100 09/27/16 08:30 131 H 101/62 100 09/27/16 08:15 125 H 103/53 100 09/27/16 08:00 98.2 F 131 H 118/66 100 09/27/16 07:45 135 H 117/69 98 09/27/16 07:39 131 H 136/68 100 09/27/16 07:30 135 H 122/79 99 09/27/16 07:15 132 H 118/73 100 09/27/16 07:01 131 H 127/76 100 09/27/16 06:45 128 H 123/71 100 09/27/16 06:30 133 H 116/69 100 09/27/16 06:15 133 H 136/68 100 09/27/16 06:00 131 H 136/68 100 09/27/16 05:45 131 H 132/69 99 09/27/16 05:30 138 H 145/76 98 09/27/16 05:15 131 H 129/78 97 09/27/16 05:00 141 H 143/77 98 09/27/16 04:45 135 H 155/88 98 09/27/16 04:31 137 H 151/97 97 09/27/16 04:15 140 H 39 H 123/85 96 09/27/16 04:01 137 H 26 H 123/85 98 09/27/16 04:00 98.6 F 98 09/27/16 03:45 127 H 35 H 123/85 98 09/27/16 03:30 135 H 34 H 128/73 99 09/27/16 03:15 126 H 31 H 113/77 100 09/27/16 03:00 152 H 33 H 124/71 98 09/27/16 02:45 128 H 28 H 120/61 99 09/27/16 02:30 127 H 21 131/63 99 09/27/16 02:15 125 H 29 H 128/61 99 09/27/16 02:00 132 H 34 H 136/76 98 09/27/16 01:45 121 H 24 109/64 99 09/27/16 01:31 135 H 34 H 125/73 100 09/27/16 01:15 113 H 22 98/64 100 09/27/16 01:00 119 H 26 H 95/57 100 09/27/16 00:45 119 H 31 H 106/48 100 09/27/16 00:30 122 H 28 H 98/52 100 09/27/16 00:15 109 H 30 H 99/51 100 09/27/16 00:04 124 H 114/62 100 09/27/16 00:00 98.3 F 131 H 29 H 110/53 100 09/26/16 23:45 117 H 25 H 114/62 100 09/26/16 23:30 122 H 30 H 119/63 100 09/26/16 23:15 117 H 26 H 115/67 99 09/26/16 23:00 121 H 22 127/67 99 09/26/16 22:45 131 H 28 H 142/64 99 09/26/16 22:30 125 H 26 H 142/64 98 09/26/16 22:20 99 09/26/16 22:15 133 H 33 H 123/72 97 09/26/16 22:05 134 H 28 H 123/72 99 09/26/16 22:00 127 H 25 H 123/72 99 09/26/16 21:45 132 H 25 H 121/72 100 09/26/16 21:31 125 H 33 H 126/66 99 09/26/16 21:15 140 H 20 102/75 100 09/26/16 21:00 114 H 27 H 107/74 100 09/26/16 20:45 128 H 30 H 118/76 100 09/26/16 20:30 128 H 39 H 117/75 99 09/26/16 20:15 126 H 37 H 123/75 99 09/26/16 20:00 140 H 36 H 125/74 99 09/26/16 19:45 137 H 22 138/91 100 09/26/16 19:43 99.1 F 09/26/16 19:31 127 H 27 H 117/58 99 09/26/16 19:15 118 H 22 102/57 98 09/26/16 19:01 114 H 20 91/49 98 09/26/16 18:45 117 H 18 78/46 100 09/26/16 18:31 115 H 17 75/48 97 09/26/16 18:15 134 H 19 66/40 100 09/26/16 18:00 131 H 125 H 35 H 94/49 99 09/26/16 17:45 133 H 27 H 114/65 99 09/26/16 17:31 138 H 21 110/90 97 09/26/16 17:15 124 H 40 H 81/60 99 09/26/16 17:00 126 H 30 H 87/66 100 09/26/16 16:45 124 H 33 H 99/63 100 09/26/16 16:30 133 H 36 H 105/53 09/26/16 16:15 120 H 35 H 101/59 100 09/26/16 16:00 99.5 F 127 H 127 H 28 H 107/65 100 09/26/16 15:45 125 H 34 H 109/58 100 09/26/16 15:37 122 H 111/47 100 09/26/16 15:31 126 H 37 H 113/51 100 09/26/16 15:15 129 H 38 H 111/47 100 09/26/16 15:01 139 H 38 H 120/70 100 09/26/16 14:45 143 H 38 H 124/83 98 09/26/16 14:31 147 H 37 H 145/90 99 09/26/16 14:15 118 H 28 H 98/54 100 09/26/16 14:00 128 H 130 H 26 H 94/49 100 09/26/16 13:45 127 H 26 H 98/33 99 09/26/16 13:30 138 H 25 H 111/51 100 09/26/16 13:15 128 H 20 103/60 100 09/26/16 13:01 132 H 21 106/68 09/26/16 12:45 126 H 21 140/74 09/26/16 12:30 132 H 19 144/75 09/26/16 12:15 120 H 28 H 104/56 09/26/16 12:04 126 H 90/50 09/26/16 12:01 127 H 25 H 104/56 09/26/16 12:00 98.6 F 137 H 38 H 09/26/16 11:45 132 H 24 90/50 09/26/16 11:30 139 H 26 H 87/58 100 - Physical Examination General: Other (intubated via trach) Cardiac: Positive: irregularly irregular Extremities: Present: normal - Labs and Meds CBC 09/27/16 Range/Units Unknown WBC 8.1 (4.5-11.0) K/mm3 RBC 2.49 L (3.65-5.03) M/mm3 Hgb 6.8 L (10.1-14.3) gm/dl Hct 20.7 L (30.3-42.9) % Plt Count 178 (140-440) K/mm3 Comprehensive Metabolic Panel 09/27/16 Range/Units Unknown Sodium 135 L (137-145) mmol/L Potassium 3.7 (3.6-5.0) mmol/L Chloride 93.6 L (98-107) mmol/L Carbon Dioxide 17 L (22-30) mmol/L BUN 45 H (7-17) mg/dL Creatinine 3.3 H (0.7-1.2) mg/dL Glucose 106 H (65-100) mg/dL Calcium 7.3 L (8.4-10.2) mg/dL - Imaging and Cardiology EKG: image reviewed - Allied health notes Allied health notes reviewed: RT
[2016-09-27] MEDS: LEVOPHED DRIP 4 MG/NS 250 ML 4 MG/250 ML BAG IV SCH (11:30)
--- NOTE | 2016-09-27 15:43 | Progress Note ---
Assessment and Plan (1) Acute respiratory failure with hypoxia Current Visit: Yes Status: Acute Plan to address problem: - continue aspiration precautions / address VAP bundles - continue to wean oxygen for MAP > 94% - continue bronchodilators and pulmonary toilet - tapered off systemic steroids (no active needs pulmonary-aquino) - completed empiric levaquin dosing - s/p tracheostomy - placed back on AC mode after review of ABG and secondary to increased work of breathing - increased set rate also - we will continue to hold on weaning today due to hemodynamic instability (2) Acute CVA (cerebrovascular accident) Current Visit: Yes Status: Acute Plan to address problem: - out of tpA window (initially stopped due to uncontrolled HTN) - Left MCA teritory stroke with some midline shift on last CT - seen by neurology and prognosis for recovery of mental status guarded to poor - optimizing secondary prevention modalities now (BP, lipid anti-platelet therapy) - off systemic steroids now (started earlier for edema) - resumed ASA and Plavix (3) Hypertensive emergency Current Visit: Yes Status: Acute Plan to address problem: - stopped all antihypertensives while septic - follow cllinically (4) Obesity (BMI 35.0-39.9 without comorbidity) Current Visit: Yes Status: Chronic Plan to address problem: - increased reglan dose - resume trickle feeding at 10mls/hr (5) Type 2 diabetes mellitus Current Visit: Yes Status: Chronic Qualifiers: Diabetes mellitus complication status: D Diabetes mellitus complication detail: D Diabetic retinopathy severity: D Proliferative retinopathy type: P Diabetes mellitus macular edema: D Diabetes mellitus manager intermediate insulin use : D Laterality: L Chronic kidney disease stage: C Plan to address problem: - continue SSI - continue lantus at 8 units sq q24h (6) Leukocytosis (leucocytosis) Current Visit: Yes Status: Acute Qualifiers: Leukocytosis type: leukemoid reaction Qualified Code(s): D72.823 - Leukemoid reaction Plan to address problem: - has been spiking fevers also - fungemia noted - started diflucan as growing dann albicans but will follow sensitivities - will discontinue diflucan re: amiodarone interaction and begin micafungin (7) Agitation Current Visit: Yes Status: Acute Plan to address problem: - prn sedation / analgesia - taper off seroquel for now (8) Atrial fibrillation Current Visit: Yes Status: Acute Qualifiers: Atrial fibrillation type: A Plan to address problem: - failed cardioversion earlier - cardiology evaluation ongoing - on amiodarone drip (9) JUANITA (acute kidney injury) Current Visit: Yes Status: Acute Plan to address problem: - on Dialysis now - oliguric - will defer to nephrology - continue vasopressor support re: cardiorenal issues and to aid dialysis - BP's better but still on phenylephrine, vasopressin and low dose levophed (10) Pyrexia of unknown origin Current Visit: Yes Status: Acute Plan to address problem: - will get dopplers as part of a PUO work-up to r/o VTE - continue to treat with AB;'s empirically - change diflucan to micafungin (11) Severe sepsis Current Visit: Yes Status: Acute Plan to address problem: - SvO2 estimate was 55% yesterday - volume resuscitated to boost cardiac output and tissue oxygen delivery - continue AB's and follow cultures - wean vasopressors for target MAP >/= 60-65mmHg - changed diflucan to micafungin - will need to discontinue central lines and vascath (will discontinue vascath after dialysis today then get new PICC line tomorrow before discontinuing current line as she is on pressors) - plan to replace vascath before next dialysis session / after 48hrs - care plan formulated with ID input (12) Discharge planning issues Current Visit: Yes Status: Acute Plan to address problem: - she remains critically ill on life sustaining interventions including MVS and at risk for further acute deterioration including .....40' CCT ....prognosis is guarded ...care plan discussed during team rounds and with her brother today Subjective Date of service: 09/27/16 Principal diagnosis: Acute resp failure on MVS; S/P Acute CVA; Acute Encephalopathy; JUANITA Interval history: Seen and examined at bedside; 24 hour events reviewed; nursing and respiratory care staff consulted; no adverse overnight events reported to me; resting in bed ; no sedation; remains encephalopathic; no emesis or overt aspiration however tube feeds held due to high residuals again; no high grade fevers; no gross bleeding; HD/UF ongoing now Objective Vital Signs - 12hr 09/27/16 09/27/16 09/27/16 03:45 04:00 04:01 Temperature 98.6 F Pulse Rate 127 H 137 H Respiratory 35 H 26 H Rate Blood Pressure 123/85 123/85 O2 Sat by Pulse 98 98 98 Oximetry O2 Sat by Pulse Oximetry [ Assessment] 09/27/16 09/27/16 09/27/16 04:15 04:31 04:45 Temperature Pulse Rate 140 H 137 H 135 H Respiratory 39 H Rate Blood Pressure 123/85 151/97 155/88 O2 Sat by Pulse 96 97 98 Oximetry O2 Sat by Pulse Oximetry [ Assessment] 09/27/16 09/27/16 09/27/16 05:00 05:15 05:30 Temperature Pulse Rate 141 H 131 H 138 H Respiratory Rate Blood Pressure 143/77 129/78 145/76 O2 Sat by Pulse 98 97 98 Oximetry O2 Sat by Pulse Oximetry [ Assessment] 09/27/16 09/27/16 09/27/16 05:45 06:00 06:15 Temperature Pulse Rate 131 H 131 H 133 H Respiratory Rate Blood Pressure 132/69 136/68 136/68 O2 Sat by Pulse 99 100 100 Oximetry O2 Sat by Pulse Oximetry [ Assessment] 09/27/16 09/27/16 09/27/16 06:30 06:45 07:01 Temperature Pulse Rate 133 H 128 H 131 H Respiratory Rate Blood Pressure 116/69 123/71 127/76 O2 Sat by Pulse 100 100 100 Oximetry O2 Sat by Pulse Oximetry [ Assessment] 09/27/16 09/27/16 09/27/16 07:15 07:30 07:39 Temperature Pulse Rate 132 H 135 H 131 H Respiratory Rate Blood Pressure 118/73 122/79 136/68 O2 Sat by Pulse 100 99 100 Oximetry O2 Sat by Pulse Oximetry [ Assessment] 09/27/16 09/27/16 09/27/16 07:45 08:00 08:15 Temperature 98.2 F Pulse Rate 135 H 131 H 125 H Respiratory Rate Blood Pressure 117/69 118/66 103/53 O2 Sat by Pulse 98 100 100 Oximetry O2 Sat by Pulse 98 Oximetry [ Assessment] 09/27/16 09/27/16 09/27/16 08:30 08:45 09:00 Temperature Pulse Rate 131 H 139 H 127 H Respiratory Rate Blood Pressure 101/62 106/52 107/50 O2 Sat by Pulse 100 100 99 Oximetry O2 Sat by Pulse Oximetry [ Assessment] 09/27/16 09/27/16 09/27/16 09:15 09:31 09:45 Temperature Pulse Rate 133 H 147 H 139 H Respiratory Rate Blood Pressure 100/55 107/59 118/60 O2 Sat by Pulse 100 99 97 Oximetry O2 Sat by Pulse Oximetry [ Assessment] 09/27/16 09/27/16 09/27/16 10:00 10:15 10:30 Temperature Pulse Rate 144 H 130 H 81 Respiratory Rate Blood Pressure 100/60 88/46 62/35 O2 Sat by Pulse 99 97 83 L Oximetry O2 Sat by Pulse Oximetry [ Assessment] 09/27/16 09/27/16 09/27/16 10:45 11:00 11:15 Temperature Pulse Rate 94 H 126 H 118 H Respiratory Rate Blood Pressure 72/44 134/70 119/74 O2 Sat by Pulse 93 100 100 Oximetry O2 Sat by Pulse Oximetry [ Assessment] 09/27/16 09/27/16 09/27/16 11:30 11:44 11:45 Temperature Pulse Rate 110 H 110 H 108 H Respiratory Rate Blood Pressure 129/67 129/67 143/72 O2 Sat by Pulse 100 100 100 Oximetry O2 Sat by Pulse Oximetry [ Assessment] 09/27/16 09/27/16 09/27/16 12:00 12:15 12:30 Temperature 98.8 F Pulse Rate 127 H 105 H 104 H Respiratory Rate Blood Pressure 128/64 135/77 144/76 O2 Sat by Pulse 100 98 97 Oximetry O2 Sat by Pulse Oximetry [ Assessment] 09/27/16 09/27/16 09/27/16 12:45 13:00 13:15 Temperature Pulse Rate 101 H 102 H 117 H Respiratory Rate Blood Pressure 128/68 121/68 126/84 O2 Sat by Pulse 97 98 100 Oximetry O2 Sat by Pulse Oximetry [ Assessment] 09/27/16 09/27/16 09/27/16 13:30 13:45 14:00 Temperature Pulse Rate 107 H 102 H 102 H Respiratory Rate Blood Pressure 121/63 121/63 99/54 O2 Sat by Pulse 100 100 100 Oximetry O2 Sat by Pulse Oximetry [ Assessment] Constitutional: no acute distress, other (encephalopathic; off sedation now) Eyes: non-icteric, other (tracheostomy tube in midline of neck) ENT: oropharynx moist Neck: supple, no lymphadenopathy Effort: mildly labored Ascultation: Bilateral: diminished breath sounds, rhonchi (bases) Cardiovascular: regular rate and rhythm Gastrointestinal: hypoactive bowel sounds, soft, non-tender, non-distended Integumentary: normal Extremities: no cyanosis, no edema, pulses normal, no ischemia or petechiae Neurologic: pupils equal and round, other (sedated) Psychiatric: other (unable to assess) CBC and BMP: 09/27/16 Unknown 09/27/16 Unknown ABG, PT/INR, D-dimer: ABG POC ABG pH 7.459 (7.35-7.45) H 09/27/16 15:00 POC ABG pCO2 27.1 (35-45) L 09/27/16 15:00 POC ABG pO2 140 (80-105) H 09/27/16 15:00 POC ABG HCO3 19.3 09/27/16 15:00 POC ABG Total CO2 20 09/27/16 15:00 POC ABG O2 Sat 99 09/27/16 15:00 PT/INR, D-dimer PT 13.8 Sec. (12.2-14.9) 09/15/16 05:00 INR 1.01 (0.87-1.13) 09/15/16 05:00 Abnormal lab findings: Abnormal Labs 09/03/16 09/03/16 09/03/16 12:12 15:07 16:20 WBC RBC Hgb Hct MCV MCH MCHC RDW Plt Count Lymph % (Auto) [place] % (Auto) Lymph # [place] # Seg Neutrophils % Seg Neuts % (Manual) Lymphocytes % (Manual) Monocytes % (Manual) Eosinophils % (Manual) Basophils % (Manual) Seg Neutrophils # Seg Neutrophils # Man Lymphocytes # (Manual) Monocytes # (Manual) Eosinophils # (Manual) Fibrinogen dRVVT Confirm Interp Factor V Activity POC ABG pH 7.452 H POC ABG pCO2 POC ABG pO2 Sodium Potassium Chloride Carbon Dioxide BUN Creatinine Glucose POC Glucose 178 H Lactic Acid Calcium Phosphorus 2.20 L Magnesium 1.60 L C-Reactive Protein Total Protein Albumin Triglycerides HDL Cholesterol Urine WBC (Auto) Urine Creatinine Urine Total Protein Vancomycin Trough Rheumatoid Factor Complement C4 Crossmatch 09/03/16 09/03/16 09/03/16 17:57 17:58 23:50 WBC RBC Hgb Hct MCV MCH MCHC RDW Plt Count Lymph % (Auto) [place] % (Auto) Lymph # [place] # Seg Neutrophils % Seg Neuts % (Manual) Lymphocytes % (Manual) Monocytes % (Manual) Eosinophils % (Manual) Basophils % (Manual) Seg Neutrophils # Seg Neutrophils # Man Lymphocytes # (Manual) Monocytes # (Manual) Eosinophils # (Manual) Fibrinogen dRVVT Confirm Interp Factor V Activity POC ABG pH POC ABG pCO2 POC ABG pO2 Sodium Potassium Chloride Carbon Dioxide BUN Creatinine Glucose POC Glucose 162 H 145 H Lactic Acid Calcium Phosphorus 2.30 L Magnesium C-Reactive Protein Total Protein Albumin Triglycerides HDL Cholesterol Urine WBC (Auto) Urine Creatinine Urine Total Protein Vancomycin Trough Rheumatoid Factor Complement C4 Crossmatch 09/04/16 09/04/16 09/04/16 03:31 03:31 05:42 WBC RBC Hgb 9.7 L D Hct MCV 72 L MCH 23 L MCHC RDW 17.5 H Plt Count Lymph % (Auto) 11.1 L [place] % (Auto) Lymph # [place] # Seg Neutrophils % 84.3 H Seg Neuts % (Manual) Lymphocytes % (Manual) Monocytes % (Manual) Eosinophils % (Manual) Basophils % (Manual) Seg Neutrophils # 8.9 H Seg Neutrophils # Man Lymphocytes # (Manual) Monocytes # (Manual) Eosinophils # (Manual) Fibrinogen dRVVT Confirm Interp Factor V Activity POC ABG pH POC ABG pCO2 POC ABG pO2 Sodium 135 L Potassium 2.9 L* Chloride 97.2 L Carbon Dioxide 19 L BUN Creatinine 1.7 H Glucose 170 H POC Glucose 152 H Lactic Acid Calcium Phosphorus Magnesium C-Reactive Protein Total Protein Albumin Triglycerides 160 H HDL Cholesterol 31 L Urine WBC (Auto) Urine Creatinine Urine Total Protein Vancomycin Trough Rheumatoid Factor Complement C4 Crossmatch 09/04/16 09/04/16 09/04/16 11:34 17:46 23:29 WBC RBC Hgb Hct MCV MCH MCHC RDW Plt Count Lymph % (Auto) [place] % (Auto) Lymph # [place] # Seg Neutrophils % Seg Neuts % (Manual) Lymphocytes % (Manual) Monocytes % (Manual) Eosinophils % (Manual) Basophils % (Manual) Seg Neutrophils # Seg Neutrophils # Man Lymphocytes # (Manual) Monocytes # (Manual) Eosinophils # (Manual) Fibrinogen dRVVT Confirm Interp Factor V Activity POC ABG pH POC ABG pCO2 POC ABG pO2 Sodium Potassium Chloride Carbon Dioxide BUN Creatinine Glucose POC Glucose 165 H 210 H 139 H Lactic Acid Calcium Phosphorus Magnesium C-Reactive Protein Total Protein Albumin Triglycerides HDL Cholesterol Urine WBC (Auto) Urine Creatinine Urine Total Protein Vancomycin Trough Rheumatoid Factor Complement C4 Crossmatch 09/05/16 09/05/16 09/05/16 04:05 04:05 05:38 WBC RBC Hgb Hct MCV 76 L D MCH 23 L MCHC RDW 17.8 H Plt Count Lymph % (Auto) [place] % (Auto) Lymph # [place] # Seg Neutrophils % Seg Neuts % (Manual) Lymphocytes % (Manual) Monocytes % (Manual) Eosinophils % (Manual) Basophils % (Manual) Seg Neutrophils # Seg Neutrophils # Man Lymphocytes # (Manual) Monocytes # (Manual) Eosinophils # (Manual) Fibrinogen dRVVT Confirm Interp Factor V Activity POC ABG pH POC ABG pCO2 POC ABG pO2 Sodium 134 L Potassium Chloride Carbon Dioxide 18 L BUN Creatinine 1.8 H Glucose 192 H POC Glucose 175 H Lactic Acid Calcium Phosphorus Magnesium C-Reactive Protein Total Protein Albumin Triglycerides HDL Cholesterol Urine WBC (Auto) Urine Creatinine Urine Total Protein Vancomycin Trough Rheumatoid Factor Complement C4 Crossmatch 09/05/16 09/05/16 09/05/16 11:38 17:48 23:22 WBC RBC Hgb Hct MCV MCH MCHC RDW Plt Count Lymph % (Auto) [place] % (Auto) Lymph # [place] # Seg Neutrophils % Seg Neuts % (Manual) Lymphocytes % (Manual) Monocytes % (Manual) Eosinophils % (Manual) Basophils % (Manual) Seg Neutrophils # Seg Neutrophils # Man Lymphocytes # (Manual) Monocytes # (Manual) Eosinophils # (Manual) Fibrinogen dRVVT Confirm Interp Factor V Activity POC ABG pH POC ABG pCO2 POC ABG pO2 Sodium Potassium Chloride Carbon Dioxide BUN Creatinine Glucose POC Glucose 164 H 186 H 195 H Lactic Acid Calcium Phosphorus Magnesium C-Reactive Protein Total Protein Albumin Triglycerides HDL Cholesterol Urine WBC (Auto) Urine Creatinine Urine Total Protein Vancomycin Trough Rheumatoid Factor Complement C4 Crossmatch 09/06/16 09/06/16 09/06/16 04:12 05:59 07:32 WBC RBC Hgb Hct MCV MCH MCHC RDW Plt Count Lymph % (Auto) [place] % (Auto) Lymph # [place] # Seg Neutrophils % Seg Neuts % (Manual) Lymphocytes % (Manual) Monocytes % (Manual) Eosinophils % (Manual) Basophils % (Manual) Seg Neutrophils # Seg Neutrophils # Man Lymphocytes # (Manual) Monocytes # (Manual) Eosinophils # (Manual) Fibrinogen dRVVT Confirm Interp Factor V Activity POC ABG pH 7.514 H POC ABG pCO2 29.1 L POC ABG pO2 72 L Sodium 133 L Potassium 3.4 L Chloride 94.9 L Carbon Dioxide 19 L BUN 30 H Creatinine 2.1 H Glucose 139 H POC Glucose 146 H Lactic Acid Calcium Phosphorus Magnesium C-Reactive Protein Total Protein Albumin Triglycerides HDL Cholesterol Urine WBC (Auto) Urine Creatinine Urine Total Protein Vancomycin Trough Rheumatoid Factor Complement C4 Crossmatch 09/06/16 09/06/16 09/06/16 11:57 17:58 19:02 WBC RBC Hgb Hct MCV MCH MCHC RDW Plt Count Lymph % (Auto) [place] % (Auto) Lymph # [place] # Seg Neutrophils % Seg Neuts % (Manual) Lymphocytes % (Manual) Monocytes % (Manual) Eosinophils % (Manual) Basophils % (Manual) Seg Neutrophils # Seg Neutrophils # Man Lymphocytes # (Manual) Monocytes # (Manual) Eosinophils # (Manual) Fibrinogen dRVVT Confirm Interp Factor V Activity POC ABG pH 7.465 H POC ABG pCO2 32.0 L POC ABG pO2 Sodium Potassium Chloride Carbon Dioxide BUN Creatinine Glucose POC Glucose 165 H 160 H Lactic Acid Calcium Phosphorus Magnesium C-Reactive Protein Total Protein Albumin Triglycerides HDL Cholesterol Urine WBC (Auto) Urine Creatinine Urine Total Protein Vancomycin Trough Rheumatoid Factor Complement C4 Crossmatch 09/06/16 09/07/16 09/07/16 23:45 02:47 02:47 WBC RBC Hgb Hct MCV MCH MCHC RDW Plt Count Lymph % (Auto) [place] % (Auto) Lymph # [place] # Seg Neutrophils % Seg Neuts % (Manual) Lymphocytes % (Manual) Monocytes % (Manual) Eosinophils % (Manual) Basophils % (Manual) Seg Neutrophils # Seg Neutrophils # Man Lymphocytes # (Manual) Monocytes # (Manual) Eosinophils # (Manual) Fibrinogen dRVVT Confirm Interp Factor V Activity POC ABG pH POC ABG pCO2 POC ABG pO2 Sodium Potassium Chloride Carbon Dioxide BUN Creatinine Glucose POC Glucose 204 H Lactic Acid Calcium Phosphorus Magnesium C-Reactive Protein Total Protein Albumin Triglycerides HDL Cholesterol Urine WBC (Auto) 68.0 H Urine Creatinine 106.1 H Urine Total Protein Vancomycin Trough Rheumatoid Factor Complement C4 Crossmatch 09/07/16 09/07/16 09/07/16 04:50 06:19 06:39 WBC RBC Hgb Hct MCV MCH MCHC RDW Plt Count Lymph % (Auto) [place] % (Auto) Lymph # [place] # Seg Neutrophils % Seg Neuts % (Manual) Lymphocytes % (Manual) Monocytes % (Manual) Eosinophils % (Manual) Basophils % (Manual) Seg Neutrophils # Seg Neutrophils # Man Lymphocytes # (Manual) Monocytes # (Manual) Eosinophils # (Manual) Fibrinogen dRVVT Confirm Interp Factor V Activity POC ABG pH 7.457 H POC ABG pCO2 32.1 L POC ABG pO2 76 L Sodium 132 L Potassium Chloride 94.7 L Carbon Dioxide BUN 53 H Creatinine 2.9 H Glucose 151 H POC Glucose 149 H Lactic Acid Calcium Phosphorus Magnesium C-Reactive Protein Total Protein Albumin Triglycerides HDL Cholesterol Urine WBC (Auto) Urine Creatinine Urine Total Protein Vancomycin Trough Rheumatoid Factor Complement C4 Crossmatch 09/07/16 09/07/16 09/07/16 09:20 11:43 11:43 WBC 19.4 H RBC Hgb 8.3 L Hct 26.4 L D MCV 72 L D MCH 22 L MCHC RDW 17.9 H Plt Count Lymph % (Auto) 8.5 L [place] % (Auto) Lymph # [place] # 1.0 H Seg Neutrophils % 85.8 H Seg Neuts % (Manual) Lymphocytes % (Manual) Monocytes % (Manual) Eosinophils % (Manual) Basophils % (Manual) Seg Neutrophils # 16.6 H Seg Neutrophils # Man Lymphocytes # (Manual) Monocytes # (Manual) Eosinophils # (Manual) Fibrinogen dRVVT Confirm Interp Factor V Activity POC ABG pH POC ABG pCO2 POC ABG pO2 Sodium 134 L Potassium Chloride 97.2 L Carbon Dioxide 20 L BUN 58 H Creatinine 2.9 H Glucose 147 H POC Glucose Lactic Acid Calcium Phosphorus 2.40 L Magnesium 2.40 H C-Reactive Protein Total Protein 5.8 L Albumin 2.2 L Triglycerides HDL Cholesterol Urine WBC (Auto) Urine Creatinine Urine Total Protein Vancomycin Trough Rheumatoid Factor Complement C4 58 H Crossmatch 09/07/16 09/07/16 09/07/16 11:50 16:00 17:31 WBC RBC Hgb Hct MCV MCH MCHC RDW Plt Count Lymph % (Auto) [place] % (Auto) Lymph # [place] # Seg Neutrophils % Seg Neuts % (Manual) Lymphocytes % (Manual) Monocytes % (Manual) Eosinophils % (Manual) Basophils % (Manual) Seg Neutrophils # Seg Neutrophils # Man Lymphocytes # (Manual) Monocytes # (Manual) Eosinophils # (Manual) Fibrinogen dRVVT Confirm Interp Factor V Activity POC ABG pH POC ABG pCO2 POC ABG pO2 158 H Sodium Potassium Chloride Carbon Dioxide BUN Creatinine Glucose POC Glucose 175 H Lactic Acid Calcium Phosphorus Magnesium C-Reactive Protein Total Protein Albumin Triglycerides HDL Cholesterol Urine WBC (Auto) Urine Creatinine 66.3 H Urine Total Protein Vancomycin Trough Rheumatoid Factor Complement C4 Crossmatch 09/07/16 09/08/16 09/08/16 23:50 05:46 06:18 WBC 17.8 H RBC 3.58 L Hgb 8.1 L Hct 25.5 L MCV 71 L MCH 23 L MCHC RDW 18.4 H Plt Count Lymph % (Auto) [place] % (Auto) Lymph # [place] # Seg Neutrophils % Seg Neuts % (Manual) 92.0 H Lymphocytes % (Manual) 6.0 L Monocytes % (Manual) Eosinophils % (Manual) Basophils % (Manual) Seg Neutrophils # Seg Neutrophils # Man 16.4 H Lymphocytes # (Manual) 1.1 L Monocytes # (Manual) Eosinophils # (Manual) Fibrinogen dRVVT Confirm Interp Factor V Activity POC ABG pH POC ABG pCO2 34.3 L POC ABG pO2 71 L Sodium Potassium Chloride Carbon Dioxide BUN Creatinine Glucose POC Glucose 216 H Lactic Acid Calcium Phosphorus Magnesium C-Reactive Protein Total Protein Albumin Triglycerides HDL Cholesterol Urine WBC (Auto) Urine Creatinine Urine Total Protein Vancomycin Trough Rheumatoid Factor Complement C4 Crossmatch 09/08/16 09/08/16 09/08/16 06:18 06:51 10:55 WBC RBC Hgb Hct MCV MCH MCHC RDW Plt Count Lymph % (Auto) [place] % (Auto) Lymph # [place] # Seg Neutrophils % Seg Neuts % (Manual) Lymphocytes % (Manual) Monocytes % (Manual) Eosinophils % (Manual) Basophils % (Manual) Seg Neutrophils # Seg Neutrophils # Man Lymphocytes # (Manual) Monocytes # (Manual) Eosinophils # (Manual) Fibrinogen dRVVT Confirm Interp Factor V Activity POC ABG pH POC ABG pCO2 POC ABG pO2 Sodium 133 L Potassium Chloride 96.9 L Carbon Dioxide 20 L BUN 63 H Creatinine 2.7 H Glucose 195 H POC Glucose 204 H 169 H Lactic Acid Calcium Phosphorus Magnesium C-Reactive Protein Total Protein Albumin Triglycerides HDL Cholesterol Urine WBC (Auto) Urine Creatinine Urine Total Protein Vancomycin Trough Rheumatoid Factor Complement C4 Crossmatch 09/08/16 09/08/16 09/08/16 11:48 11:48 11:48 WBC RBC Hgb Hct MCV MCH MCHC RDW Plt Count Lymph % (Auto) [place] % (Auto) Lymph # [place] # Seg Neutrophils % Seg Neuts % (Manual) Lymphocytes % (Manual) Monocytes % (Manual) Eosinophils % (Manual) Basophils % (Manual) Seg Neutrophils # Seg Neutrophils # Man Lymphocytes # (Manual) Monocytes # (Manual) Eosinophils # (Manual) Fibrinogen 750 H dRVVT Confirm Interp Factor V Activity POC ABG pH POC ABG pCO2 POC ABG pO2 Sodium Potassium Chloride Carbon Dioxide BUN Creatinine Glucose POC Glucose Lactic Acid Calcium Phosphorus Magnesium C-Reactive Protein 15.70 H Total Protein Albumin Triglycerides HDL Cholesterol Urine WBC (Auto) Urine Creatinine Urine Total Protein Vancomycin Trough Rheumatoid Factor 24 H Complement C4 Crossmatch 09/08/16 09/08/16 09/09/16 15:35 18:25 00:24 WBC RBC Hgb Hct MCV MCH MCHC RDW Plt Count Lymph % (Auto) [place] % (Auto) Lymph # [place] # Seg Neutrophils % Seg Neuts % (Manual) Lymphocytes % (Manual) Monocytes % (Manual) Eosinophils % (Manual) Basophils % (Manual) Seg Neutrophils # Seg Neutrophils # Man Lymphocytes # (Manual) Monocytes # (Manual) Eosinophils # (Manual) Fibrinogen dRVVT Confirm Interp Factor V Activity 182 H POC ABG pH POC ABG pCO2 POC ABG pO2 Sodium Potassium Chloride Carbon Dioxide BUN Creatinine Glucose POC Glucose 184 H 216 H Lactic Acid Calcium Phosphorus Magnesium C-Reactive Protein Total Protein Albumin Triglycerides HDL Cholesterol Urine WBC (Auto) Urine Creatinine Urine Total Protein Vancomycin Trough Rheumatoid Factor Complement C4 Crossmatch 09/09/16 09/09/16 09/09/16 03:00 03:00 04:04 WBC 27.9 H RBC Hgb 8.7 L Hct 28.1 L MCV 72 L MCH 22 L MCHC RDW 18.4 H Plt Count 485 H Lymph % (Auto) [place] % (Auto) Lymph # [place] # Seg Neutrophils % Seg Neuts % (Manual) 77.0 H Lymphocytes % (Manual) 9.0 L Monocytes % (Manual) Eosinophils % (Manual) Basophils % (Manual) Seg Neutrophils # Seg Neutrophils # Man 21.5 H Lymphocytes # (Manual) Monocytes # (Manual) 2.0 H Eosinophils # (Manual) Fibrinogen dRVVT Confirm Interp Factor V Activity POC ABG pH POC ABG pCO2 POC ABG pO2 121 H Sodium 135 L Potassium Chloride 96.3 L Carbon Dioxide 21 L BUN 83 H Creatinine 3.0 H Glucose 135 H POC Glucose Lactic Acid Calcium Phosphorus Magnesium C-Reactive Protein Total Protein Albumin Triglycerides HDL Cholesterol Urine WBC (Auto) Urine Creatinine Urine Total Protein Vancomycin Trough Rheumatoid Factor Complement C4 Crossmatch 09/09/16 09/09/16 09/09/16 05:41 11:55 14:13 WBC RBC Hgb Hct MCV MCH MCHC RDW Plt Count Lymph % (Auto) [place] % (Auto) Lymph # [place] # Seg Neutrophils % Seg Neuts % (Manual) Lymphocytes % (Manual) Monocytes % (Manual) Eosinophils % (Manual) Basophils % (Manual) Seg Neutrophils # Seg Neutrophils # Man Lymphocytes # (Manual) Monocytes # (Manual) Eosinophils # (Manual) Fibrinogen dRVVT Confirm Interp Factor V Activity POC ABG pH POC ABG pCO2 POC ABG pO2 Sodium Potassium Chloride Carbon Dioxide BUN Creatinine Glucose POC Glucose 155 H 186 H Lactic Acid Calcium Phosphorus Magnesium C-Reactive Protein Total Protein Albumin Triglycerides HDL Cholesterol Urine WBC (Auto) 25.0 H Urine Creatinine Urine Total Protein Vancomycin Trough Rheumatoid Factor Complement C4 Crossmatch 09/09/16 09/09/16 09/10/16 17:33 23:13 05:09 WBC RBC Hgb Hct MCV MCH MCHC RDW Plt Count Lymph % (Auto) [place] % (Auto) Lymph # [place] # Seg Neutrophils % Seg Neuts % (Manual) Lymphocytes % (Manual) Monocytes % (Manual) Eosinophils % (Manual) Basophils % (Manual) Seg Neutrophils # Seg Neutrophils # Man Lymphocytes # (Manual) Monocytes # (Manual) Eosinophils # (Manual) Fibrinogen dRVVT Confirm Interp Factor V Activity POC ABG pH POC ABG pCO2 POC ABG pO2 74 L Sodium Potassium Chloride Carbon Dioxide BUN Creatinine Glucose POC Glucose 211 H 215 H Lactic Acid Calcium Phosphorus Magnesium C-Reactive Protein Total Protein Albumin Triglycerides HDL Cholesterol Urine WBC (Auto) Urine Creatinine Urine Total Protein Vancomycin Trough Rheumatoid Factor Complement C4 Crossmatch 09/10/16 09/10/16 09/10/16 05:17 05:17 11:31 WBC 15.8 H RBC 3.25 L Hgb 7.3 L Hct 22.9 L MCV 71 L MCH 23 L MCHC RDW 18.4 H Plt Count Lymph % (Auto) [place] % (Auto) Lymph # [place] # Seg Neutrophils % Seg Neuts % (Manual) 91.0 H Lymphocytes % (Manual) 4.0 L Monocytes % (Manual) Eosinophils % (Manual) Basophils % (Manual) Seg Neutrophils # Seg Neutrophils # Man 14.4 H Lymphocytes # (Manual) 0.6 L Monocytes # (Manual) Eosinophils # (Manual) Fibrinogen dRVVT Confirm Interp Factor V Activity POC ABG pH POC ABG pCO2 POC ABG pO2 Sodium Potassium Chloride Carbon Dioxide 21 L BUN 93 H Creatinine 2.9 H Glucose 146 H POC Glucose 188 H Lactic Acid Calcium 8.1 L Phosphorus Magnesium C-Reactive Protein Total Protein Albumin Triglycerides HDL Cholesterol Urine WBC (Auto) Urine Creatinine Urine Total Protein Vancomycin Trough Rheumatoid Factor Complement C4 Crossmatch 09/10/16 09/10/16 09/10/16 13:17 17:20 23:32 WBC RBC Hgb Hct MCV MCH MCHC RDW Plt Count Lymph % (Auto) [place] % (Auto) Lymph # [place] # Seg Neutrophils % Seg Neuts % (Manual) Lymphocytes % (Manual) Monocytes % (Manual) Eosinophils % (Manual) Basophils % (Manual) Seg Neutrophils # Seg Neutrophils # Man Lymphocytes # (Manual) Monocytes # (Manual) Eosinophils # (Manual) Fibrinogen dRVVT Confirm Interp Factor V Activity POC ABG pH POC ABG pCO2 POC ABG pO2 Sodium Potassium Chloride Carbon Dioxide BUN Creatinine Glucose POC Glucose 199 H 186 H Lactic Acid Calcium Phosphorus Magnesium C-Reactive Protein Total Protein Albumin Triglycerides HDL Cholesterol Urine WBC (Auto) Urine Creatinine Urine Total Protein Vancomycin Trough Rheumatoid Factor Complement C4 Crossmatch See Detail 09/11/16 09/11/16 09/11/16 05:10 05:10 05:17 WBC 28.4 H RBC Hgb 9.2 L Hct 29.3 L D MCV 73 L MCH 23 L MCHC RDW 18.9 H Plt Count 452 H Lymph % (Auto) [place] % (Auto) Lymph # [place] # Seg Neutrophils % Seg Neuts % (Manual) 89.5 H Lymphocytes % (Manual) 2.0 L Monocytes % (Manual) Eosinophils % (Manual) Basophils % (Manual) Seg Neutrophils # Seg Neutrophils # Man 25.4 H Lymphocytes # (Manual) 0.6 L Monocytes # (Manual) 1.3 H Eosinophils # (Manual) Fibrinogen dRVVT Confirm Interp Factor V Activity POC ABG pH POC ABG pCO2 POC ABG pO2 Sodium 136 L Potassium Chloride Carbon Dioxide 18 L BUN 107 H Creatinine 2.6 H Glucose 187 H POC Glucose 230 H Lactic Acid Calcium 8.3 L Phosphorus Magnesium C-Reactive Protein Total Protein Albumin Triglycerides HDL Cholesterol Urine WBC (Auto) Urine Creatinine Urine Total Protein Vancomycin Trough Rheumatoid Factor Complement C4 Crossmatch 09/11/16 09/11/16 09/11/16 05:55 12:02 17:32 WBC RBC Hgb Hct MCV MCH MCHC RDW Plt Count Lymph % (Auto) [place] % (Auto) Lymph # [place] # Seg Neutrophils % Seg Neuts % (Manual) Lymphocytes % (Manual) Monocytes % (Manual) Eosinophils % (Manual) Basophils % (Manual) Seg Neutrophils # Seg Neutrophils # Man Lymphocytes # (Manual) Monocytes # (Manual) Eosinophils # (Manual) Fibrinogen dRVVT Confirm Interp Factor V Activity POC ABG pH POC ABG pCO2 33.8 L POC ABG pO2 Sodium Potassium Chloride Carbon Dioxide BUN Creatinine Glucose POC Glucose 191 H 239 H Lactic Acid Calcium Phosphorus Magnesium C-Reactive Protein Total Protein Albumin Triglycerides HDL Cholesterol Urine WBC (Auto) Urine Creatinine Urine Total Protein Vancomycin Trough Rheumatoid Factor Complement C4 Crossmatch 09/11/16 09/12/16 09/12/16 23:52 05:09 05:32 WBC RBC Hgb Hct MCV MCH MCHC RDW Plt Count Lymph % (Auto) [place] % (Auto) Lymph # [place] # Seg Neutrophils % Seg Neuts % (Manual) Lymphocytes % (Manual) Monocytes % (Manual) Eosinophils % (Manual) Basophils % (Manual) Seg Neutrophils # Seg Neutrophils # Man Lymphocytes # (Manual) Monocytes # (Manual) Eosinophils # (Manual) Fibrinogen dRVVT Confirm Interp Factor V Activity POC ABG pH POC ABG pCO2 34.6 L POC ABG pO2 Sodium Potassium Chloride Carbon Dioxide BUN Creatinine Glucose POC Glucose 265 H 184 H Lactic Acid Calcium Phosphorus Magnesium C-Reactive Protein Total Protein Albumin Triglycerides HDL Cholesterol Urine WBC (Auto) Urine Creatinine Urine Total Protein Vancomycin Trough Rheumatoid Factor Complement C4 Crossmatch 09/12/16 09/12/16 09/12/16 06:45 06:45 07:22 WBC 31.7 H RBC 3.54 L Hgb 8.3 L Hct 25.9 L MCV 73 L MCH 23 L MCHC RDW 18.9 H Plt Count Lymph % (Auto) [place] % (Auto) Lymph # [place] # Seg Neutrophils % Seg Neuts % (Manual) 88.5 H Lymphocytes % (Manual) 4.5 L Monocytes % (Manual) Eosinophils % (Manual) Basophils % (Manual) Seg Neutrophils # Seg Neutrophils # Man 28.1 H Lymphocytes # (Manual) Monocytes # (Manual) 1.0 H Eosinophils # (Manual) Fibrinogen dRVVT Confirm Interp Factor V Activity POC ABG pH POC ABG pCO2 POC ABG pO2 Sodium Potassium Chloride Carbon Dioxide 20 L BUN 115 H Creatinine 2.7 H Glucose 165 H POC Glucose Lactic Acid Calcium 8.0 L Phosphorus Magnesium C-Reactive Protein Total Protein Albumin Triglycerides 217 H HDL Cholesterol Urine WBC (Auto) Urine Creatinine Urine Total Protein Vancomycin Trough Rheumatoid Factor Complement C4 Crossmatch 09/12/16 09/12/16 09/12/16 07:22 09:59 12:21 WBC RBC Hgb Hct MCV MCH MCHC RDW Plt Count Lymph % (Auto) [place] % (Auto) Lymph # [place] # Seg Neutrophils % Seg Neuts % (Manual) Lymphocytes % (Manual) Monocytes % (Manual) Eosinophils % (Manual) Basophils % (Manual) Seg Neutrophils # Seg Neutrophils # Man Lymphocytes # (Manual) Monocytes # (Manual) Eosinophils # (Manual) Fibrinogen dRVVT Confirm Interp Positive H Factor V Activity POC ABG pH POC ABG pCO2 POC ABG pO2 Sodium Potassium Chloride Carbon Dioxide BUN Creatinine Glucose POC Glucose 224 H Lactic Acid Calcium Phosphorus Magnesium C-Reactive Protein 1.70 H Total Protein Albumin Triglycerides HDL Cholesterol Urine WBC (Auto) Urine Creatinine Urine Total Protein Vancomycin Trough Rheumatoid Factor Complement C4 Crossmatch 09/12/16 09/12/16 09/13/16 16:51 23:28 04:00 WBC 45.0 H* RBC Hgb 9.4 L Hct MCV 75 L MCH 23 L MCHC RDW 19.0 H Plt Count 470 H Lymph % (Auto) [place] % (Auto) Lymph # [place] # Seg Neutrophils % Seg Neuts % (Manual) 89.0 H Lymphocytes % (Manual) 5.0 L Monocytes % (Manual) Eosinophils % (Manual) Basophils % (Manual) Seg Neutrophils # Seg Neutrophils # Man 40.1 H Lymphocytes # (Manual) Monocytes # (Manual) Eosinophils # (Manual) Fibrinogen dRVVT Confirm Interp Factor V Activity POC ABG pH POC ABG pCO2 POC ABG pO2 Sodium Potassium Chloride Carbon Dioxide BUN Creatinine Glucose POC Glucose 169 H 150 H Lactic Acid Calcium Phosphorus Magnesium C-Reactive Protein Total Protein Albumin Triglycerides HDL Cholesterol Urine WBC (Auto) Urine Creatinine Urine Total Protein Vancomycin Trough Rheumatoid Factor Complement C4 Crossmatch 09/13/16 09/13/16 09/13/16 04:00 11:26 17:31 WBC RBC Hgb Hct MCV MCH MCHC RDW Plt Count Lymph % (Auto) [place] % (Auto) Lymph # [place] # Seg Neutrophils % Seg Neuts % (Manual) Lymphocytes % (Manual) Monocytes % (Manual) Eosinophils % (Manual) Basophils % (Manual) Seg Neutrophils # Seg Neutrophils # Man Lymphocytes # (Manual) Monocytes # (Manual) Eosinophils # (Manual) Fibrinogen dRVVT Confirm Interp Factor V Activity POC ABG pH POC ABG pCO2 POC ABG pO2 Sodium Potassium Chloride Carbon Dioxide 20 L BUN 116 H Creatinine 3.0 H Glucose 172 H POC Glucose 140 H 183 H Lactic Acid Calcium Phosphorus Magnesium C-Reactive Protein Total Protein 6.2 L Albumin 2.9 L Triglycerides HDL Cholesterol Urine WBC (Auto) Urine Creatinine Urine Total Protein Vancomycin Trough Rheumatoid Factor Complement C4 Crossmatch 09/13/16 09/14/16 09/14/16 23:23 04:06 04:07 WBC 29.4 H RBC Hgb 8.9 L Hct 27.3 L MCV 75 L MCH 24 L MCHC RDW 19.1 H Plt Count Lymph % (Auto) [place] % (Auto) Lymph # [place] # Seg Neutrophils % Seg Neuts % (Manual) 84.0 H Lymphocytes % (Manual) 6.0 L Monocytes % (Manual) 9.0 H Eosinophils % (Manual) Basophils % (Manual) Seg Neutrophils # Seg Neutrophils # Man 24.7 H Lymphocytes # (Manual) Monocytes # (Manual) 2.6 H Eosinophils # (Manual) Fibrinogen dRVVT Confirm Interp Factor V Activity POC ABG pH 7.342 L POC ABG pCO2 POC ABG pO2 116 H Sodium Potassium Chloride Carbon Dioxide BUN Creatinine Glucose POC Glucose 154 H Lactic Acid Calcium Phosphorus Magnesium C-Reactive Protein Total Protein Albumin Triglycerides HDL Cholesterol Urine WBC (Auto) Urine Creatinine Urine Total Protein Vancomycin Trough Rheumatoid Factor Complement C4 Crossmatch 09/14/16 09/14/16 09/14/16 04:07 05:29 12:19 WBC RBC Hgb Hct MCV MCH MCHC RDW Plt Count Lymph % (Auto) [place] % (Auto) Lymph # [place] # Seg Neutrophils % Seg Neuts % (Manual) Lymphocytes % (Manual) Monocytes % (Manual) Eosinophils % (Manual) Basophils % (Manual) Seg Neutrophils # Seg Neutrophils # Man Lymphocytes # (Manual) Monocytes # (Manual) Eosinophils # (Manual) Fibrinogen dRVVT Confirm Interp Factor V Activity POC ABG pH POC ABG pCO2 POC ABG pO2 Sodium 136 L Potassium Chloride Carbon Dioxide 18 L BUN 121 H Creatinine 2.8 H Glucose 214 H POC Glucose 239 H 181 H Lactic Acid Calcium Phosphorus Magnesium C-Reactive Protein Total Protein Albumin Triglycerides HDL Cholesterol Urine WBC (Auto) Urine Creatinine Urine Total Protein Vancomycin Trough Rheumatoid Factor Complement C4 Crossmatch 09/14/16 09/14/16 09/15/16 18:12 23:37 05:00 WBC 26.1 H RBC 3.05 L Hgb 7.2 L Hct 22.9 L MCV 75 L MCH 24 L MCHC RDW 19.0 H Plt Count Lymph % (Auto) [place] % (Auto) Lymph # [place] # Seg Neutrophils % Seg Neuts % (Manual) Lymphocytes % (Manual) Monocytes % (Manual) Eosinophils % (Manual) Basophils % (Manual) Seg Neutrophils # Seg Neutrophils # Man Lymphocytes # (Manual) Monocytes # (Manual) Eosinophils # (Manual) Fibrinogen dRVVT Confirm Interp Factor V Activity POC ABG pH POC ABG pCO2 POC ABG pO2 Sodium Potassium Chloride Carbon Dioxide BUN Creatinine Glucose POC Glucose 266 H 154 H Lactic Acid Calcium Phosphorus Magnesium C-Reactive Protein Total Protein Albumin Triglycerides HDL Cholesterol Urine WBC (Auto) Urine Creatinine Urine Total Protein Vancomycin Trough Rheumatoid Factor Complement C4 Crossmatch 09/15/16 09/15/16 09/15/16 05:00 05:17 12:45 WBC RBC Hgb Hct MCV MCH MCHC RDW Plt Count Lymph % (Auto) [place] % (Auto) Lymph # [place] # Seg Neutrophils % Seg Neuts % (Manual) Lymphocytes % (Manual) Monocytes % (Manual) Eosinophils % (Manual) Basophils % (Manual) Seg Neutrophils # Seg Neutrophils # Man Lymphocytes # (Manual) Monocytes # (Manual) Eosinophils # (Manual) Fibrinogen dRVVT Confirm Interp Factor V Activity POC ABG pH POC ABG pCO2 POC ABG pO2 Sodium Potassium 5.2 H Chloride Carbon Dioxide 18 L BUN 139 H Creatinine 3.7 H Glucose 227 H POC Glucose 226 H 244 H Lactic Acid Calcium 8.3 L Phosphorus Magnesium C-Reactive Protein Total Protein Albumin Triglycerides HDL Cholesterol Urine WBC (Auto) Urine Creatinine Urine Total Protein Vancomycin Trough Rheumatoid Factor Complement C4 Crossmatch 09/15/16 09/15/16 09/15/16 14:32 17:33 23:35 WBC RBC Hgb Hct MCV MCH MCHC RDW Plt Count Lymph % (Auto) [place] % (Auto) Lymph # [place] # Seg Neutrophils % Seg Neuts % (Manual) Lymphocytes % (Manual) Monocytes % (Manual) Eosinophils % (Manual) Basophils % (Manual) Seg Neutrophils # Seg Neutrophils # Man Lymphocytes # (Manual) Monocytes # (Manual) Eosinophils # (Manual) Fibrinogen dRVVT Confirm Interp Factor V Activity POC ABG pH POC ABG pCO2 27.7 L POC ABG pO2 120 H Sodium Potassium Chloride Carbon Dioxide BUN Creatinine Glucose POC Glucose 232 H 167 H Lactic Acid Calcium Phosphorus Magnesium C-Reactive Protein Total Protein Albumin Triglycerides HDL Cholesterol Urine WBC (Auto) Urine Creatinine Urine Total Protein Vancomycin Trough Rheumatoid Factor Complement C4 Crossmatch 09/16/16 09/16/16 09/16/16 03:58 10:27 10:27 WBC 19.0 H RBC 2.77 L Hgb 6.5 L Hct 20.9 L MCV 76 L MCH 23 L MCHC RDW 19.3 H Plt Count Lymph % (Auto) 11.0 L [place] % (Auto) Lymph # [place] # 1.1 H Seg Neutrophils % 82.5 H Seg Neuts % (Manual) Lymphocytes % (Manual) Monocytes % (Manual) Eosinophils % (Manual) Basophils % (Manual) Seg Neutrophils # 15.7 H Seg Neutrophils # Man Lymphocytes # (Manual) Monocytes # (Manual) Eosinophils # (Manual) Fibrinogen dRVVT Confirm Interp Factor V Activity POC ABG pH POC ABG pCO2 POC ABG pO2 Sodium Potassium Chloride 109.3 H Carbon Dioxide 18 L BUN 139 H Creatinine 4.1 H Glucose 144 H POC Glucose 146 H Lactic Acid Calcium 8.1 L Phosphorus Magnesium C-Reactive Protein Total Protein Albumin Triglycerides HDL Cholesterol Urine WBC (Auto) Urine Creatinine Urine Total Protein Vancomycin Trough Rheumatoid Factor Complement C4 Crossmatch 09/16/16 09/16/16 09/16/16 12:04 12:10 13:55 WBC RBC Hgb Hct MCV MCH MCHC RDW Plt Count Lymph % (Auto) [place] % (Auto) Lymph # [place] # Seg Neutrophils % Seg Neuts % (Manual) Lymphocytes % (Manual) Monocytes % (Manual) Eosinophils % (Manual) Basophils % (Manual) Seg Neutrophils # Seg Neutrophils # Man Lymphocytes # (Manual) Monocytes # (Manual) Eosinophils # (Manual) Fibrinogen dRVVT Confirm Interp Factor V Activity POC ABG pH POC ABG pCO2 32.9 L POC ABG pO2 Sodium Potassium Chloride Carbon Dioxide BUN Creatinine Glucose POC Glucose 185 H Lactic Acid Calcium Phosphorus Magnesium C-Reactive Protein Total Protein Albumin Triglycerides HDL Cholesterol Urine WBC (Auto) Urine Creatinine Urine Total Protein Vancomycin Trough Rheumatoid Factor Complement C4 Crossmatch See Detail 09/16/16 09/16/16 09/16/16 17:55 19:19 23:48 WBC RBC Hgb Hct MCV MCH MCHC RDW Plt Count Lymph % (Auto) [place] % (Auto) Lymph # [place] # Seg Neutrophils % Seg Neuts % (Manual) Lymphocytes % (Manual) Monocytes % (Manual) Eosinophils % (Manual) Basophils % (Manual) Seg Neutrophils # Seg Neutrophils # Man Lymphocytes # (Manual) Monocytes # (Manual) Eosinophils # (Manual) Fibrinogen dRVVT Confirm Interp Factor V Activity POC ABG pH POC ABG pCO2 POC ABG pO2 Sodium Potassium Chloride Carbon Dioxide BUN Creatinine Glucose POC Glucose 222 H 107 H Lactic Acid Calcium Phosphorus Magnesium C-Reactive Protein Total Protein Albumin Triglycerides HDL Cholesterol Urine WBC (Auto) Urine Creatinine 47.4 H Urine Total Protein 16 H Vancomycin Trough Rheumatoid Factor Complement C4 Crossmatch 09/17/16 09/17/16 09/17/16 03:45 03:45 04:55 WBC 19.6 H RBC 3.41 L Hgb 8.5 L Hct 26.7 L MCV 78 L MCH 25 L MCHC RDW 19.9 H Plt Count Lymph % (Auto) 9.3 L [place] % (Auto) Lymph # [place] # 1.2 H Seg Neutrophils % 83.9 H Seg Neuts % (Manual) Lymphocytes % (Manual) Monocytes % (Manual) Eosinophils % (Manual) Basophils % (Manual) Seg Neutrophils # 16.4 H Seg Neutrophils # Man Lymphocytes # (Manual) Monocytes # (Manual) Eosinophils # (Manual) Fibrinogen dRVVT Confirm Interp Factor V Activity POC ABG pH POC ABG pCO2 POC ABG pO2 Sodium 146 H Potassium 5.1 H Chloride 110.9 H Carbon Dioxide 16 L BUN 146 H Creatinine 4.0 H Glucose 108 H POC Glucose 133 H Lactic Acid Calcium Phosphorus Magnesium 3.00 H C-Reactive Protein Total Protein Albumin Triglycerides HDL Cholesterol Urine WBC (Auto) Urine Creatinine Urine Total Protein Vancomycin Trough Rheumatoid Factor Complement C4 Crossmatch 09/17/16 09/17/16 09/17/16 11:15 17:33 23:47 WBC RBC Hgb Hct MCV MCH MCHC RDW Plt Count Lymph % (Auto) [place] % (Auto) Lymph # [place] # Seg Neutrophils % Seg Neuts % (Manual) Lymphocytes % (Manual) Monocytes % (Manual) Eosinophils % (Manual) Basophils % (Manual) Seg Neutrophils # Seg Neutrophils # Man Lymphocytes # (Manual) Monocytes # (Manual) Eosinophils # (Manual) Fibrinogen dRVVT Confirm Interp Factor V Activity POC ABG pH POC ABG pCO2 POC ABG pO2 Sodium Potassium Chloride Carbon Dioxide BUN Creatinine Glucose POC Glucose 176 H 246 H 148 H Lactic Acid Calcium Phosphorus Magnesium C-Reactive Protein Total Protein Albumin Triglycerides HDL Cholesterol Urine WBC (Auto) Urine Creatinine Urine Total Protein Vancomycin Trough Rheumatoid Factor Complement C4 Crossmatch 09/18/16 09/18/16 09/18/16 05:33 08:31 08:31 WBC 18.0 H RBC 3.17 L Hgb 9.0 L Hct 25.7 L MCV MCH MCHC 35 H RDW 20.4 H Plt Count Lymph % (Auto) [place] % (Auto) Lymph # [place] # Seg Neutrophils % Seg Neuts % (Manual) Lymphocytes % (Manual) Monocytes % (Manual) Eosinophils % (Manual) Basophils % (Manual) Seg Neutrophils # Seg Neutrophils # Man Lymphocytes # (Manual) Monocytes # (Manual) Eosinophils # (Manual) Fibrinogen dRVVT Confirm Interp Factor V Activity POC ABG pH POC ABG pCO2 POC ABG pO2 Sodium Potassium Chloride Carbon Dioxide 15 L BUN 124 H Creatinine 3.8 H Glucose POC Glucose 120 H Lactic Acid Calcium 8.1 L Phosphorus Magnesium C-Reactive Protein Total Protein Albumin Triglycerides HDL Cholesterol Urine WBC (Auto) Urine Creatinine Urine Total Protein Vancomycin Trough Rheumatoid Factor Complement C4 Crossmatch 09/18/16 09/18/16 09/18/16 12:03 15:34 17:50 WBC RBC Hgb Hct MCV MCH MCHC RDW Plt Count Lymph % (Auto) [place] % (Auto) Lymph # [place] # Seg Neutrophils % Seg Neuts % (Manual) Lymphocytes % (Manual) Monocytes % (Manual) Eosinophils % (Manual) Basophils % (Manual) Seg Neutrophils # Seg Neutrophils # Man Lymphocytes # (Manual) Monocytes # (Manual) Eosinophils # (Manual) Fibrinogen dRVVT Confirm Interp Factor V Activity POC ABG pH POC ABG pCO2 25.7 L POC ABG pO2 66 L Sodium Potassium Chloride Carbon Dioxide BUN Creatinine Glucose POC Glucose 156 H 220 H Lactic Acid Calcium Phosphorus Magnesium C-Reactive Protein Total Protein Albumin Triglycerides HDL Cholesterol Urine WBC (Auto) Urine Creatinine Urine Total Protein Vancomycin Trough Rheumatoid Factor Complement C4 Crossmatch 09/19/16 09/19/16 09/19/16 06:21 09:50 09:50 WBC 17.1 H RBC 3.49 L Hgb 9.0 L Hct 28.1 L MCV MCH 26 L MCHC RDW 20.8 H Plt Count Lymph % (Auto) 11.5 L [place] % (Auto) 7.5 H Lymph # [place] # 1.3 H Seg Neutrophils % 79.8 H Seg Neuts % (Manual) Lymphocytes % (Manual) Monocytes % (Manual) Eosinophils % (Manual) Basophils % (Manual) Seg Neutrophils # 13.7 H Seg Neutrophils # Man Lymphocytes # (Manual) Monocytes # (Manual) Eosinophils # (Manual) Fibrinogen dRVVT Confirm Interp Factor V Activity POC ABG pH POC ABG pCO2 POC ABG pO2 Sodium Potassium Chloride 108.6 H Carbon Dioxide 15 L BUN 125 H Creatinine 4.1 H Glucose 124 H POC Glucose 119 H Lactic Acid Calcium Phosphorus Magnesium C-Reactive Protein Total Protein Albumin Triglycerides HDL Cholesterol Urine WBC (Auto) Urine Creatinine Urine Total Protein Vancomycin Trough Rheumatoid Factor Complement C4 Crossmatch 09/19/16 09/19/16 09/19/16 11:25 17:53 23:36 WBC RBC Hgb Hct MCV MCH MCHC RDW Plt Count Lymph % (Auto) [place] % (Auto) Lymph # [place] # Seg Neutrophils % Seg Neuts % (Manual) Lymphocytes % (Manual) Monocytes % (Manual) Eosinophils % (Manual) Basophils % (Manual) Seg Neutrophils # Seg Neutrophils # Man Lymphocytes # (Manual) Monocytes # (Manual) Eosinophils # (Manual) Fibrinogen dRVVT Confirm Interp Factor V Activity POC ABG pH POC ABG pCO2 POC ABG pO2 Sodium Potassium Chloride Carbon Dioxide BUN Creatinine Glucose POC Glucose 160 H 245 H 121 H Lactic Acid Calcium Phosphorus Magnesium C-Reactive Protein Total Protein Albumin Triglycerides HDL Cholesterol Urine WBC (Auto) Urine Creatinine Urine Total Protein Vancomycin Trough Rheumatoid Factor Complement C4 Crossmatch 09/20/16 09/20/16 09/20/16 04:10 04:10 04:10 WBC 17.0 H RBC 3.21 L Hgb 8.2 L Hct 25.5 L MCV MCH 26 L MCHC RDW 20.9 H Plt Count Lymph % (Auto) [place] % (Auto) Lymph # [place] # Seg Neutrophils % Seg Neuts % (Manual) Lymphocytes % (Manual) Monocytes % (Manual) Eosinophils % (Manual) Basophils % (Manual) Seg Neutrophils # Seg Neutrophils # Man Lymphocytes # (Manual) Monocytes # (Manual) Eosinophils # (Manual) Fibrinogen dRVVT Confirm Interp Factor V Activity POC ABG pH POC ABG pCO2 POC ABG pO2 Sodium Potassium Chloride 111.0 H Carbon Dioxide 16 L BUN 129 H Creatinine 3.7 H Glucose 115 H POC Glucose Lactic Acid Calcium 8.2 L Phosphorus Magnesium C-Reactive Protein Total Protein Albumin Triglycerides 243 H HDL Cholesterol Urine WBC (Auto) Urine Creatinine Urine Total Protein Vancomycin Trough Rheumatoid Factor Complement C4 Crossmatch 09/20/16 09/20/16 09/20/16 05:40 11:52 16:50 WBC RBC Hgb Hct MCV MCH MCHC RDW Plt Count Lymph % (Auto) [place] % (Auto) Lymph # [place] # Seg Neutrophils % Seg Neuts % (Manual) Lymphocytes % (Manual) Monocytes % (Manual) Eosinophils % (Manual) Basophils % (Manual) Seg Neutrophils # Seg Neutrophils # Man Lymphocytes # (Manual) Monocytes # (Manual) Eosinophils # (Manual) Fibrinogen dRVVT Confirm Interp Factor V Activity POC ABG pH POC ABG pCO2 POC ABG pO2 Sodium Potassium Chloride Carbon Dioxide BUN Creatinine Glucose POC Glucose 131 H 183 H 236 H Lactic Acid Calcium Phosphorus Magnesium C-Reactive Protein Total Protein Albumin Triglycerides HDL Cholesterol Urine WBC (Auto) Urine Creatinine Urine Total Protein Vancomycin Trough Rheumatoid Factor Complement C4 Crossmatch 09/20/16 09/21/16 09/21/16 23:51 03:30 04:44 WBC RBC Hgb Hct MCV MCH MCHC RDW Plt Count Lymph % (Auto) [place] % (Auto) Lymph # [place] # Seg Neutrophils % Seg Neuts % (Manual) Lymphocytes % (Manual) Monocytes % (Manual) Eosinophils % (Manual) Basophils % (Manual) Seg Neutrophils # Seg Neutrophils # Man Lymphocytes # (Manual) Monocytes # (Manual) Eosinophils # (Manual) Fibrinogen dRVVT Confirm Interp Factor V Activity POC ABG pH POC ABG pCO2 POC ABG pO2 Sodium Potassium Chloride Carbon Dioxide BUN Creatinine Glucose POC Glucose 114 H 141 H Lactic Acid Calcium Phosphorus Magnesium 2.70 H C-Reactive Protein Total Protein Albumin Triglycerides HDL Cholesterol Urine WBC (Auto) Urine Creatinine Urine Total Protein Vancomycin Trough Rheumatoid Factor Complement C4 Crossmatch 09/21/16 09/21/16 09/21/16 07:45 07:45 10:01 WBC 13.8 H RBC 2.94 L Hgb 7.5 L Hct 23.5 L MCV MCH 26 L MCHC RDW 21.2 H Plt Count Lymph % (Auto) 6.9 L [place] % (Auto) 9.4 H Lymph # 0.9 L [place] # 1.3 H Seg Neutrophils % 83.2 H Seg Neuts % (Manual) Lymphocytes % (Manual) Monocytes % (Manual) Eosinophils % (Manual) Basophils % (Manual) Seg Neutrophils # 11.5 H Seg Neutrophils # Man Lymphocytes # (Manual) Monocytes # (Manual) Eosinophils # (Manual) Fibrinogen dRVVT Confirm Interp Factor V Activity POC ABG pH 7.308 L POC ABG pCO2 31.9 L POC ABG pO2 148 H Sodium 147 H Potassium Chloride 114.2 H Carbon Dioxide 15 L BUN 120 H Creatinine 3.9 H Glucose 156 H POC Glucose Lactic Acid Calcium 8.2 L Phosphorus Magnesium C-Reactive Protein Total Protein Albumin Triglycerides HDL Cholesterol Urine WBC (Auto) Urine Creatinine Urine Total Protein Vancomycin Trough Rheumatoid Factor Complement C4 Crossmatch 09/21/16 09/21/16 09/21/16 12:00 12:03 13:00 WBC RBC Hgb Hct MCV MCH MCHC RDW Plt Count Lymph % (Auto) [place] % (Auto) Lymph # [place] # Seg Neutrophils % Seg Neuts % (Manual) Lymphocytes % (Manual) Monocytes % (Manual) Eosinophils % (Manual) Basophils % (Manual) Seg Neutrophils # Seg Neutrophils # Man Lymphocytes # (Manual) Monocytes # (Manual) Eosinophils # (Manual) Fibrinogen dRVVT Confirm Interp Factor V Activity POC ABG pH POC ABG pCO2 POC ABG pO2 Sodium Potassium Chloride Carbon Dioxide BUN Creatinine Glucose POC Glucose 163 H Lactic Acid Calcium Phosphorus Magnesium C-Reactive Protein Total Protein Albumin Triglycerides HDL Cholesterol Urine WBC (Auto) Urine Creatinine 54.8 H Urine Total Protein Vancomycin Trough 2.3 L Rheumatoid Factor Complement C4 Crossmatch 09/21/16 09/21/16 09/22/16 16:51 23:17 06:27 WBC RBC Hgb Hct MCV MCH MCHC RDW Plt Count Lymph % (Auto) [place] % (Auto) Lymph # [place] # Seg Neutrophils % Seg Neuts % (Manual) Lymphocytes % (Manual) Monocytes % (Manual) Eosinophils % (Manual) Basophils % (Manual) Seg Neutrophils # Seg Neutrophils # Man Lymphocytes # (Manual) Monocytes # (Manual) Eosinophils # (Manual) Fibrinogen dRVVT Confirm Interp Factor V Activity POC ABG pH POC ABG pCO2 POC ABG pO2 Sodium Potassium Chloride Carbon Dioxide BUN Creatinine Glucose POC Glucose 206 H 114 H 115 H Lactic Acid Calcium Phosphorus Magnesium C-Reactive Protein Total Protein Albumin Triglycerides HDL Cholesterol Urine WBC (Auto) Urine Creatinine Urine Total Protein Vancomycin Trough Rheumatoid Factor Complement C4 Crossmatch 09/22/16 09/22/16 09/22/16 07:50 07:50 12:00 WBC 17.8 H RBC 3.04 L Hgb 8.0 L Hct 24.7 L MCV MCH 26 L MCHC RDW 21.6 H Plt Count Lymph % (Auto) [place] % (Auto) Lymph # [place] # Seg Neutrophils % Seg Neuts % (Manual) Lymphocytes % (Manual) Monocytes % (Manual) Eosinophils % (Manual) Basophils % (Manual) Seg Neutrophils # Seg Neutrophils # Man Lymphocytes # (Manual) Monocytes # (Manual) Eosinophils # (Manual) Fibrinogen dRVVT Confirm Interp Factor V Activity POC ABG pH POC ABG pCO2 POC ABG pO2 Sodium 150 H Potassium Chloride 118.2 H Carbon Dioxide 14 L BUN 111 H Creatinine 3.7 H Glucose 157 H POC Glucose 183 H Lactic Acid Calcium Phosphorus Magnesium C-Reactive Protein Total Protein Albumin Triglycerides HDL Cholesterol Urine WBC (Auto) Urine Creatinine Urine Total Protein Vancomycin Trough Rheumatoid Factor Complement C4 Crossmatch 09/22/16 09/22/16 09/23/16 17:29 23:10 05:00 WBC 19.2 H RBC 3.13 L Hgb 8.0 L Hct 25.2 L MCV MCH 26 L MCHC RDW 22.1 H Plt Count Lymph % (Auto) [place] % (Auto) Lymph # [place] # Seg Neutrophils % Seg Neuts % (Manual) 92.0 H Lymphocytes % (Manual) 3.0 L Monocytes % (Manual) Eosinophils % (Manual) Basophils % (Manual) Seg Neutrophils # Seg Neutrophils # Man 17.7 H Lymphocytes # (Manual) 0.6 L Monocytes # (Manual) Eosinophils # (Manual) Fibrinogen dRVVT Confirm Interp Factor V Activity POC ABG pH POC ABG pCO2 POC ABG pO2 Sodium Potassium Chloride Carbon Dioxide BUN Creatinine Glucose POC Glucose 197 H 169 H Lactic Acid Calcium Phosphorus Magnesium C-Reactive Protein Total Protein Albumin Triglycerides HDL Cholesterol Urine WBC (Auto) Urine Creatinine Urine Total Protein Vancomycin Trough Rheumatoid Factor Complement C4 Crossmatch 09/23/16 09/23/16 09/23/16 05:00 05:00 05:10 WBC RBC Hgb Hct MCV MCH MCHC RDW Plt Count Lymph % (Auto) [place] % (Auto) Lymph # [place] # Seg Neutrophils % Seg Neuts % (Manual) Lymphocytes % (Manual) Monocytes % (Manual) Eosinophils % (Manual) Basophils % (Manual) Seg Neutrophils # Seg Neutrophils # Man Lymphocytes # (Manual) Monocytes # (Manual) Eosinophils # (Manual) Fibrinogen dRVVT Confirm Interp Factor V Activity POC ABG pH POC ABG pCO2 POC ABG pO2 Sodium 147 H Potassium 3.2 L Chloride 115.7 H Carbon Dioxide 13 L BUN 111 H Creatinine 3.8 H Glucose 194 H POC Glucose 188 H Lactic Acid Calcium 7.3 L D Phosphorus Magnesium C-Reactive Protein 3.20 H Total Protein Albumin Triglycerides HDL Cholesterol Urine WBC (Auto) Urine Creatinine Urine Total Protein Vancomycin Trough Rheumatoid Factor Complement C4 Crossmatch 09/23/16 09/23/16 09/23/16 11:37 12:29 18:01 WBC RBC Hgb Hct MCV MCH MCHC RDW Plt Count Lymph % (Auto) [place] % (Auto) Lymph # [place] # Seg Neutrophils % Seg Neuts % (Manual) Lymphocytes % (Manual) Monocytes % (Manual) Eosinophils % (Manual) Basophils % (Manual) Seg Neutrophils # Seg Neutrophils # Man Lymphocytes # (Manual) Monocytes # (Manual) Eosinophils # (Manual) Fibrinogen dRVVT Confirm Interp Factor V Activity POC ABG pH POC ABG pCO2 18.9 L POC ABG pO2 143 H Sodium Potassium Chloride Carbon Dioxide BUN Creatinine Glucose POC Glucose 153 H 108 H Lactic Acid Calcium Phosphorus Magnesium C-Reactive Protein Total Protein Albumin Triglycerides HDL Cholesterol Urine WBC (Auto) Urine Creatinine Urine Total Protein Vancomycin Trough Rheumatoid Factor Complement C4 Crossmatch 09/23/16 09/23/16 09/24/16 21:19 23:43 05:16 WBC RBC Hgb Hct MCV MCH MCHC RDW Plt Count Lymph % (Auto) [place] % (Auto) Lymph # [place] # Seg Neutrophils % Seg Neuts % (Manual) Lymphocytes % (Manual) Monocytes % (Manual) Eosinophils % (Manual) Basophils % (Manual) Seg Neutrophils # Seg Neutrophils # Man Lymphocytes # (Manual) Monocytes # (Manual) Eosinophils # (Manual) Fibrinogen dRVVT Confirm Interp Factor V Activity POC ABG pH POC ABG pCO2 17.3 L POC ABG pO2 112 H Sodium Potassium Chloride Carbon Dioxide BUN Creatinine Glucose POC Glucose 143 H 164 H Lactic Acid Calcium Phosphorus Magnesium C-Reactive Protein Total Protein Albumin Triglycerides HDL Cholesterol Urine WBC (Auto) Urine Creatinine Urine Total Protein Vancomycin Trough Rheumatoid Factor Complement C4 Crossmatch 09/24/16 09/24/16 09/24/16 05:21 11:58 17:06 WBC RBC Hgb Hct MCV MCH MCHC RDW Plt Count Lymph % (Auto) [place] % (Auto) Lymph # [place] # Seg Neutrophils % Seg Neuts % (Manual) Lymphocytes % (Manual) Monocytes % (Manual) Eosinophils % (Manual) Basophils % (Manual) Seg Neutrophils # Seg Neutrophils # Man Lymphocytes # (Manual) Monocytes # (Manual) Eosinophils # (Manual) Fibrinogen dRVVT Confirm Interp Factor V Activity POC ABG pH POC ABG pCO2 POC ABG pO2 Sodium Potassium Chloride Carbon Dioxide 10 L BUN 103 H Creatinine 4.3 H Glucose 163 H POC Glucose 173 H 167 H Lactic Acid Calcium 6.5 L Phosphorus Magnesium C-Reactive Protein Total Protein Albumin Triglycerides HDL Cholesterol Urine WBC (Auto) Urine Creatinine Urine Total Protein Vancomycin Trough Rheumatoid Factor Complement C4 Crossmatch 09/24/16 09/24/16 09/24/16 20:15 21:02 23:48 WBC RBC Hgb Hct MCV MCH MCHC RDW Plt Count Lymph % (Auto) [place] % (Auto) Lymph # [place] # Seg Neutrophils % Seg Neuts % (Manual) Lymphocytes % (Manual) Monocytes % (Manual) Eosinophils % (Manual) Basophils % (Manual) Seg Neutrophils # Seg Neutrophils # Man Lymphocytes # (Manual) Monocytes # (Manual) Eosinophils # (Manual) Fibrinogen dRVVT Confirm Interp Factor V Activity POC ABG pH 7.288 L POC ABG pCO2 30.2 L 21.5 L POC ABG pO2 32 L 39 L Sodium Potassium Chloride Carbon Dioxide BUN Creatinine Glucose POC Glucose 109 H Lactic Acid Calcium Phosphorus Magnesium C-Reactive Protein Total Protein Albumin Triglycerides HDL Cholesterol Urine WBC (Auto) Urine Creatinine Urine Total Protein Vancomycin Trough Rheumatoid Factor Complement C4 Crossmatch 09/25/16 09/25/16 09/25/16 04:20 04:20 04:20 WBC RBC 2.58 L Hgb 7.0 L Hct 21.0 L MCV MCH 27 L MCHC RDW 23.8 H Plt Count Lymph % (Auto) [place] % (Auto) Lymph # [place] # Seg Neutrophils % Seg Neuts % (Manual) Lymphocytes % (Manual) 12.0 L Monocytes % (Manual) Eosinophils % (Manual) 7.0 H Basophils % (Manual) 2.0 H Seg Neutrophils # Seg Neutrophils # Man Lymphocytes # (Manual) 0.9 L Monocytes # (Manual) Eosinophils # (Manual) 0.5 H Fibrinogen dRVVT Confirm Interp Factor V Activity POC ABG pH POC ABG pCO2 POC ABG pO2 Sodium Potassium Chloride Carbon Dioxide 15 L BUN 72 H Creatinine 3.8 H Glucose POC Glucose Lactic Acid Calcium 6.0 L Phosphorus 4.60 H Magnesium 1.60 L C-Reactive Protein Total Protein Albumin Triglycerides HDL Cholesterol Urine WBC (Auto) Urine Creatinine Urine Total Protein Vancomycin Trough Rheumatoid Factor Complement C4 Crossmatch 09/25/16 09/25/16 09/25/16 04:57 08:02 10:30 WBC RBC Hgb Hct MCV MCH MCHC RDW Plt Count Lymph % (Auto) [place] % (Auto) Lymph # [place] # Seg Neutrophils % Seg Neuts % (Manual) Lymphocytes % (Manual) Monocytes % (Manual) Eosinophils % (Manual) Basophils % (Manual) Seg Neutrophils # Seg Neutrophils # Man Lymphocytes # (Manual) Monocytes # (Manual) Eosinophils # (Manual) Fibrinogen dRVVT Confirm Interp Factor V Activity POC ABG pH POC ABG pCO2 24.7 L POC ABG pO2 152 H Sodium Potassium Chloride Carbon Dioxide BUN Creatinine Glucose POC Glucose 113 H Lactic Acid Calcium Phosphorus Magnesium C-Reactive Protein Total Protein Albumin Triglycerides HDL Cholesterol Urine WBC (Auto) Urine Creatinine Urine Total Protein Vancomycin Trough Rheumatoid Factor Complement C4 Crossmatch See Detail 09/25/16 09/25/16 09/25/16 12:05 17:44 23:47 WBC RBC Hgb Hct MCV MCH MCHC RDW Plt Count Lymph % (Auto) [place] % (Auto) Lymph # [place] # Seg Neutrophils % Seg Neuts % (Manual) Lymphocytes % (Manual) Monocytes % (Manual) Eosinophils % (Manual) Basophils % (Manual) Seg Neutrophils # Seg Neutrophils # Man Lymphocytes # (Manual) Monocytes # (Manual) Eosinophils # (Manual) Fibrinogen dRVVT Confirm Interp Factor V Activity POC ABG pH POC ABG pCO2 POC ABG pO2 Sodium Potassium Chloride Carbon Dioxide BUN Creatinine Glucose POC Glucose 117 H 119 H 150 H Lactic Acid Calcium Phosphorus Magnesium C-Reactive Protein Total Protein Albumin Triglycerides HDL Cholesterol Urine WBC (Auto) Urine Creatinine Urine Total Protein Vancomycin Trough Rheumatoid Factor Complement C4 Crossmatch 09/26/16 09/26/16 09/26/16 04:25 04:25 04:25 WBC RBC 2.65 L Hgb 7.4 L Hct 21.6 L MCV MCH MCHC RDW 22.5 H Plt Count Lymph % (Auto) [place] % (Auto) Lymph # [place] # Seg Neutrophils % Seg Neuts % (Manual) Lymphocytes % (Manual) 6.0 L Monocytes % (Manual) Eosinophils % (Manual) 11.0 H Basophils % (Manual) Seg Neutrophils # Seg Neutrophils # Man Lymphocytes # (Manual) 0.4 L Monocytes # (Manual) Eosinophils # (Manual) 0.6 H Fibrinogen dRVVT Confirm Interp Factor V Activity POC ABG pH POC ABG pCO2 POC ABG pO2 Sodium Potassium Chloride 97.0 L Carbon Dioxide 19 L BUN 43 H Creatinine 2.6 H Glucose 130 H POC Glucose Lactic Acid 4.40 H* Calcium 6.7 L Phosphorus Magnesium C-Reactive Protein Total Protein Albumin Triglycerides HDL Cholesterol Urine WBC (Auto) Urine Creatinine Urine Total Protein Vancomycin Trough Rheumatoid Factor Complement C4 Crossmatch 09/26/16 09/26/16 09/26/16 05:20 11:44 12:12 WBC RBC Hgb Hct MCV MCH MCHC RDW Plt Count Lymph % (Auto) [place] % (Auto) Lymph # [place] # Seg Neutrophils % Seg Neuts % (Manual) Lymphocytes % (Manual) Monocytes % (Manual) Eosinophils % (Manual) Basophils % (Manual) Seg Neutrophils # Seg Neutrophils # Man Lymphocytes # (Manual) Monocytes # (Manual) Eosinophils # (Manual) Fibrinogen dRVVT Confirm Interp Factor V Activity POC ABG pH POC ABG pCO2 27.0 L POC ABG pO2 69 L Sodium Potassium Chloride Carbon Dioxide BUN Creatinine Glucose POC Glucose 121 H 128 H Lactic Acid Calcium Phosphorus Magnesium C-Reactive Protein Total Protein Albumin Triglycerides HDL Cholesterol Urine WBC (Auto) Urine Creatinine Urine Total Protein Vancomycin Trough Rheumatoid Factor Complement C4 Crossmatch 09/26/16 09/26/16 09/27/16 18:31 23:40 08:20 WBC RBC Hgb Hct MCV MCH MCHC RDW Plt Count Lymph % (Auto) [place] % (Auto) Lymph # [place] # Seg Neutrophils % Seg Neuts % (Manual) Lymphocytes % (Manual) Monocytes % (Manual) Eosinophils % (Manual) Basophils % (Manual) Seg Neutrophils # Seg Neutrophils # Man Lymphocytes # (Manual) Monocytes # (Manual) Eosinophils # (Manual) Fibrinogen dRVVT Confirm Interp Factor V Activity POC ABG pH POC ABG pCO2 POC ABG pO2 Sodium Potassium Chloride Carbon Dioxide BUN Creatinine Glucose POC Glucose 120 H 133 H Lactic Acid 4.10 H* Calcium Phosphorus Magnesium C-Reactive Protein Total Protein Albumin Triglycerides HDL Cholesterol Urine WBC (Auto) Urine Creatinine Urine Total Protein Vancomycin Trough Rheumatoid Factor Complement C4 Crossmatch 09/27/16 09/27/16 09/27/16 15:00 Unknown Unknown WBC RBC 2.49 L Hgb 6.8 L Hct 20.7 L MCV MCH 27 L MCHC RDW 22.1 H Plt Count Lymph % (Auto) [place] % (Auto) Lymph # [place] # Seg Neutrophils % Seg Neuts % (Manual) 32.0 L Lymphocytes % (Manual) 12.0 L Monocytes % (Manual) 11.0 H Eosinophils % (Manual) 10.0 H Basophils % (Manual) Seg Neutrophils # Seg Neutrophils # Man Lymphocytes # (Manual) 1.0 L Monocytes # (Manual) 0.9 H Eosinophils # (Manual) 0.8 H Fibrinogen dRVVT Confirm Interp Factor V Activity POC ABG pH 7.459 H POC ABG pCO2 27.1 L POC ABG pO2 140 H Sodium 135 L Potassium Chloride 93.6 L Carbon Dioxide 17 L BUN 45 H Creatinine 3.3 H Glucose 106 H POC Glucose Lactic Acid Calcium 7.3 L Phosphorus Magnesium C-Reactive Protein Total Protein Albumin Triglycerides HDL Cholesterol Urine WBC (Auto) Urine Creatinine Urine Total Protein Vancomycin Trough Rheumatoid Factor Complement C4 Crossmatch Chest x-ray: image reviewed Allied health notes reviewed: RT
--- NOTE | 2016-09-27 17:36 | Progress Note ---
Assessment and Plan - Patient Problems (1) Fungemia Current Visit: Yes Status: Acute Plan to address problem: 1. Will start Micafungin as patient requires Amiodarone, which may interact with Fluconazole. 2. PICC and vascath will need to be removed and patient with a 48+-hour line -free and negative cultures prior to re-insertion. (2) Sepsis Current Visit: Yes Status: Acute Qualifiers: Sepsis type: sepsis due to unspecified organism Qualified Code(s): A41.9 - Sepsis, unspecified organism Plan to address problem: 1. No change on broad antimicrobials and now evidence of fungemia. 2. Will treat with Micafungin and keep enteral Vancomycin/ IV Flagyl. 3. Will keep Meropenem until patient clinically improves, but will discontinue if no new culture indications. Want to limit unnecessary antibiotics given high suspicion of Cdiff-related diarrhea. (3) Chronic renal insufficiency Current Visit: Yes Status: Acute Qualifiers: Chronic kidney disease stage: C Plan to address problem: Renally adjusted meds. Subjective Date of service: 09/27/16 Principal diagnosis: Acute resp failure on MVS; S/P Acute CVA; Acute Encephalopathy; JUANITA Interval history: Remains critically ill in ICU. Evidence of fungemia on blood culture. I discussed the case with Dr. Lara earlier today. Objective - Exam Narrative Exam: on 3 pressors (SBP presently 160s) - Constitutional Vitals: Vital Signs Temp Pulse Resp BP Pulse Ox 98.8 F 138 H 32 H 137/88 99 09/27/16 15:51 09/27/16 17:15 09/27/16 15:51 09/27/16 17:15 09/27/16 16:00 Temperature -Last 24 Hours Temperature 98.8 F Temperature 98.8 F Temperature 98.2 F Temperature 98.6 F Temperature 98.3 F Temperature 99.1 F General appearance: Present: no acute distress, other (tracks with eyes) - EENT Eyes: no conjunctival injection ENT: other (NG tube) - Neck Neck: other (tracheostomy, FiO2 40%) - Respiratory Respiratory: bilateral: rhonchi - Cardiovascular Rhythm: regular (tachycardic to 130s) Heart Sounds: Present: S1 & S2 Extremities: No edema - Gastrointestinal General gastrointestinal: Present: soft, non-distended, other ((+) PEG without inflammation) - Integumentary Integumentary: no rash - Neurologic Neurologic: focal deficits - Additional findings Additional findings: lft arm PICC, left femoral vascath - Labs CBC & Chem 7: 09/27/16 Unknown 09/27/16 Unknown Labs: Abnormal lab results 09/16/16 09/25/16 09/26/16 Range/Units 13:55 10:30 18:31 RBC (3.65-5.03) M/mm3 Hgb (10.1-14.3) gm/dl Hct (30.3-42.9) % MCH (28-32) pg RDW (13.2-15.2) % Seg Neuts % (Manual) (40.0-70.0) % Lymphocytes % (Manual) (13.4-35.0) % Monocytes % (Manual) (0.0-7.3) % Eosinophils % (Manual) (0.0-4.3) % Lymphocytes # (Manual) (1.2-5.4) K/mm3 Monocytes # (Manual) (0.0-0.8) K/mm3 Eosinophils # (Manual) (0.0-0.4) K/mm3 POC ABG pH (7.35-7.45) POC ABG pCO2 (35-45) POC ABG pO2 (80-105) Sodium (137-145) mmol/L Chloride (98-107) mmol/L Carbon Dioxide (22-30) mmol/L BUN (7-17) mg/dL Creatinine (0.7-1.2) mg/dL Glucose (65-100) mg/dL POC Glucose 120 H (70-105) Lactic Acid (0.7-2.0) mmol/L Calcium (8.4-10.2) mg/dL Crossmatch See Detail See Detail 09/26/16 09/27/16 09/27/16 Range/Units 23:40 08:20 15:00 RBC (3.65-5.03) M/mm3 Hgb (10.1-14.3) gm/dl Hct (30.3-42.9) % MCH (28-32) pg RDW (13.2-15.2) % Seg Neuts % (Manual) (40.0-70.0) % Lymphocytes % (Manual) (13.4-35.0) % Monocytes % (Manual) (0.0-7.3) % Eosinophils % (Manual) (0.0-4.3) % Lymphocytes # (Manual) (1.2-5.4) K/mm3 Monocytes # (Manual) (0.0-0.8) K/mm3 Eosinophils # (Manual) (0.0-0.4) K/mm3 POC ABG pH 7.459 H (7.35-7.45) POC ABG pCO2 27.1 L (35-45) POC ABG pO2 140 H (80-105) Sodium (137-145) mmol/L Chloride (98-107) mmol/L Carbon Dioxide (22-30) mmol/L BUN (7-17) mg/dL Creatinine (0.7-1.2) mg/dL Glucose (65-100) mg/dL POC Glucose 133 H (70-105) Lactic Acid 4.10 H* (0.7-2.0) mmol/L Calcium (8.4-10.2) mg/dL Crossmatch 09/27/16 09/27/16 Range/Units Unknown Unknown RBC 2.49 L (3.65-5.03) M/mm3 Hgb 6.8 L (10.1-14.3) gm/dl Hct 20.7 L (30.3-42.9) % MCH 27 L (28-32) pg RDW 22.1 H (13.2-15.2) % Seg Neuts % (Manual) 32.0 L (40.0-70.0) % Lymphocytes % (Manual) 12.0 L (13.4-35.0) % Monocytes % (Manual) 11.0 H (0.0-7.3) % Eosinophils % (Manual) 10.0 H (0.0-4.3) % Lymphocytes # (Manual) 1.0 L (1.2-5.4) K/mm3 Monocytes # (Manual) 0.9 H (0.0-0.8) K/mm3 Eosinophils # (Manual) 0.8 H (0.0-0.4) K/mm3 POC ABG pH (7.35-7.45) POC ABG pCO2 (35-45) POC ABG pO2 (80-105) Sodium 135 L (137-145) mmol/L Chloride 93.6 L (98-107) mmol/L Carbon Dioxide 17 L (22-30) mmol/L BUN 45 H (7-17) mg/dL Creatinine 3.3 H (0.7-1.2) mg/dL Glucose 106 H (65-100) mg/dL POC Glucose (70-105) Lactic Acid (0.7-2.0) mmol/L Calcium 7.3 L (8.4-10.2) mg/dL Crossmatch Microbiology 09/23/16 16:55 Peripheral/Venous Blood Culture - Preliminary Silvia Albicans 09/23/16 16:55 Peripheral/Venous Blood Culture - Preliminary Silvia Albicans 09/23/16 16:30 Tracheal Aspirate Sputum Culture - Final 09/25/16 17:12 Peripheral/Venous Blood Fungal Culture - Preliminary Culture in Progress 09/25/16 17:12 Peripheral/Venous Blood Fungal Culture - Preliminary Culture in Progress 09/23/16 22:30 Urine,Catheterized - Indwelling Catheter Urine Culture - Final 09/13/16 10:30 Urine,[place] Urine Culture - Final NO GROWTH AFTER 48 HOURS 09/13/16 09:04 Peripheral/Venous Blood Culture - Final NO GROWTH AFTER 5 DAYS 09/13/16 08:39 Peripheral/Venous Blood Culture - Final NO GROWTH AFTER 5 DAYS 09/15/16 18:44 Stool Stool Occult Blood (HORTENCIA) - Final 09/13/16 14:06 Tracheal Aspirate Sputum Culture - Final 09/11/16 15:03 Stool C. difficile DNA Amplification - Final 09/10/16 10:58 Urine,Clean Catch Urine Culture - Preliminary NO GROWTH AFTER 48 HOURS 09/07/16 17:39 Tracheal Aspirate Sputum Culture - Final - Imaging and cardiology Chest x-ray: report reviewed (por pulmonary inflation but clear lungs)
--- NOTE | 2016-09-27 18:00 | Event Note ---
Date: 09/27/16 Discussed with consultants - kate dunaway after dialysis today - get CVL in subclavian or IJ location tomorrow - pull PICC thereafter as she remains on multiple vasoactive drips - replace vas-cath prior to next dialysis session in about 48hrs
[2016-09-27] MEDS: HEPARIN IV PRN (18:38)
[2016-09-27] MEDS: LANOXIN IV SCH ×2 (18:53→22:28)
[2016-09-27] MEDS: MERREM/NS 500 MG/50 ML 500 MG/50 ML BAG IV SCH (19:20)
[2016-09-27] MEDS: MYCAMINE 100 MG in NACL 0.9% 100 ML IV SCH (20:47)
[2016-09-27] MEDS ORDERED: MERREM 1,000 MG in NACL 0.9% 100 ML IV SCH (22:00)
[2016-09-28] MEDS: D5W 1,000 ML with SODIUM BICARBONATE 75 MEQ IV SCH (00:01)
[2016-09-28 04:39] LABS: Hemoglobin 8.4 gm/dl (10.1-14.3); Mean Corpuscular HGB Conc 33 % (30-34); Mean Corpuscular Hemoglobin 28 pg (28-32); Mean Corpuscular Volume 83 fl (79-97); Platelet Count 128 K/mm3 (140-440); Red Blood Count 3.01 M/mm3 (3.65-5.03)
[2016-09-28 04:46] LABS: Red Cell Distribution Width 20.5 % (13.2-15.2)
[2016-09-28 04:52] LABS: BUN/Creatinine Ratio 11.2; Calcium 7.1 mg/dL (8.4-10.2)
[2016-09-28] MEDS: REGLAN IV SCH ×8 (05:11→21:26)
[2016-09-28] MEDS: CORDARONE 900 MG in D5W 482 ML IV SCH (05:12)
[2016-09-28 05:38] LABS: Band Neutrophils # (Manual) 3.9 K/mm3; Basophils % (Manual) 0 % (0.0-1.8); Total Cells Counted 100
[2016-09-28 05:39] LABS: Anisocytosis 1+; Platelet Estimate Consistent w Auto
[2016-09-28] MEDS: FLAGYL 500 MG/100 ML 500 MG/100 ML BAG IV SCH ×3 (06:20→17:41)
[2016-09-28] MEDS: VANCOMYCIN PO FEEDTUBE SCH ×4 (06:20→17:42)
[2016-09-28] MEDS: HEPARIN SUB-Q SCH ×3 (06:20→21:27)
--- NOTE | 2016-09-28 08:12 | XRay Report ---
AP chest x-ray. History: Followup respiratory failure. Findings: Since yesterday's study, there has been no interval change in cardiomegaly. The lungs are clear. Pulmonary vessels are normal. The tracheostomy tube is in satisfactory position. There are no new findings.
[2016-09-28] MEDS: NEO-SYNEPHRINE 100 MG in NACL 0.9% 90 ML IV SCH (08:39)
[2016-09-28] MEDS: Vasostrict 20 UNIT in NACL 0.9% 100 ML IV SCH ×2 (08:41→18:31)
[2016-09-28] MEDS: HumuLIN R SUB-Q SCH ×3 (09:15→18:39)
[2016-09-28] MEDS: MERREM/NS 500 MG/50 ML 500 MG/50 ML BAG IV SCH ×2 (09:17→17:44)
--- NOTE | 2016-09-28 09:37 | Progress Note ---
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 * Acute hypoxic respiratory failure * Left renal artery stenosis * Metabolic acidosis - improved * Anemia Plan: * No acute indication for hemodialysis today * Vascath removed in light of fungemia - reinsertion of catheter pending clearance by ID * Pressors prn MAP>65 * Rate control per cardiology * Abx/antifungal per ID * Vent management per critical care * Dose medications for renal function * Avoid potential nephrotoxins Subjective Date of service: 09/28/16 Principal diagnosis: Acute resp failure on MVS; S/P Acute CVA; Acute Encephalopathy; JUANITA Interval history: No acute events overnight. Currently on Vasopressin and Neosynephrine Objective - Vital Signs Vital signs: Vital Signs - 12hr 09/27/16 09/27/16 09/27/16 21:45 22:00 22:01 Temperature Pulse Rate 135 H 139 H 132 H Pulse Rate [ From Monitor] Respiratory Rate Blood Pressure 143/78 131/78 O2 Sat by Pulse 100 100 Oximetry O2 Sat by Pulse Oximetry [ Assessment] 09/27/16 09/27/16 09/27/16 22:15 22:28 22:30 Temperature Pulse Rate 131 H 142 H 138 H Pulse Rate [ From Monitor] Respiratory Rate Blood Pressure 132/72 132/72 129/76 O2 Sat by Pulse 100 100 Oximetry O2 Sat by Pulse Oximetry [ Assessment] 09/27/16 09/27/16 09/27/16 22:45 23:00 23:15 Temperature Pulse Rate 125 H 134 H 133 H Pulse Rate [ From Monitor] Respiratory Rate Blood Pressure 138/73 142/81 139/83 O2 Sat by Pulse 100 100 100 Oximetry O2 Sat by Pulse Oximetry [ Assessment] 09/27/16 09/27/16 09/27/16 23:30 23:45 23:48 Temperature 99.7 F H Pulse Rate 141 H 141 H Pulse Rate [ From Monitor] Respiratory Rate Blood Pressure 125/72 134/73 O2 Sat by Pulse 93 92 Oximetry O2 Sat by Pulse Oximetry [ Assessment] 09/27/16 09/28/16 09/28/16 23:57 00:00 00:15 Temperature Pulse Rate 131 H 132 H 134 H Pulse Rate [ From Monitor] Respiratory Rate Blood Pressure 134/73 116/72 110/80 O2 Sat by Pulse 98 99 99 Oximetry O2 Sat by Pulse Oximetry [ Assessment] 09/28/16 09/28/16 09/28/16 00:20 00:31 00:35 Temperature Pulse Rate 138 H 145 H Pulse Rate [ From Monitor] Respiratory Rate Blood Pressure 110/83 110/83 O2 Sat by Pulse 99 100 Oximetry O2 Sat by Pulse 98 Oximetry [ Assessment] 09/28/16 09/28/16 09/28/16 00:45 01:00 01:15 Temperature Pulse Rate 135 H 133 H 133 H Pulse Rate [ From Monitor] Respiratory Rate Blood Pressure 115/76 125/77 130/69 O2 Sat by Pulse 98 99 99 Oximetry O2 Sat by Pulse Oximetry [ Assessment] 09/28/16 09/28/16 09/28/16 01:30 01:45 02:01 Temperature Pulse Rate 129 H 134 H 131 H Pulse Rate [ From Monitor] Respiratory Rate Blood Pressure 126/72 126/72 145/99 O2 Sat by Pulse 99 99 100 Oximetry O2 Sat by Pulse Oximetry [ Assessment] 09/28/16 09/28/16 09/28/16 02:15 02:30 02:45 Temperature Pulse Rate 138 H 145 H 136 H Pulse Rate [ From Monitor] Respiratory 35 H 34 H 29 H Rate Blood Pressure 145/99 148/86 139/35 O2 Sat by Pulse 100 99 99 Oximetry O2 Sat by Pulse Oximetry [ Assessment] 09/28/16 09/28/16 09/28/16 03:01 03:15 03:30 Temperature Pulse Rate 137 H 140 H 139 H Pulse Rate [ From Monitor] Respiratory 29 H 24 31 H Rate Blood Pressure 139/80 131/83 131/80 O2 Sat by Pulse 99 100 100 Oximetry O2 Sat by Pulse Oximetry [ Assessment] 09/28/16 09/28/16 09/28/16 03:45 04:00 04:01 Temperature 99.9 F H Pulse Rate 118 H 135 H 145 H Pulse Rate [ From Monitor] Respiratory 34 H 28 H Rate Blood Pressure 130/84 120/71 131/80 O2 Sat by Pulse 100 94 100 Oximetry O2 Sat by Pulse Oximetry [ Assessment] 09/28/16 09/28/16 09/28/16 04:15 04:30 04:45 Temperature Pulse Rate 134 H 134 H Pulse Rate [ From Monitor] Respiratory 34 H 24 Rate Blood Pressure 131/80 101/74 111/75 O2 Sat by Pulse 98 100 100 Oximetry O2 Sat by Pulse Oximetry [ Assessment] 09/28/16 09/28/16 09/28/16 05:00 05:15 05:30 Temperature Pulse Rate 135 H 139 H 132 H Pulse Rate [ From Monitor] Respiratory 25 H 39 H 21 Rate Blood Pressure 102/73 97/66 87/69 O2 Sat by Pulse 100 99 99 Oximetry O2 Sat by Pulse Oximetry [ Assessment] 09/28/16 09/28/16 09/28/16 05:45 06:01 06:15 Temperature Pulse Rate 126 H 130 H 129 H Pulse Rate [ From Monitor] Respiratory 22 26 H 26 H Rate Blood Pressure 115/73 124/74 118/73 O2 Sat by Pulse 100 100 100 Oximetry O2 Sat by Pulse Oximetry [ Assessment] 09/28/16 09/28/16 09/28/16 06:31 06:45 06:57 Temperature Pulse Rate 122 H 126 H 129 H Pulse Rate [ From Monitor] Respiratory 27 H 35 H Rate Blood Pressure 110/73 105/69 118/73 O2 Sat by Pulse 100 100 100 Oximetry O2 Sat by Pulse Oximetry [ Assessment] 09/28/16 09/28/16 09/28/16 07:00 07:15 07:30 Temperature Pulse Rate 125 H 130 H 133 H Pulse Rate [ From Monitor] Respiratory 24 27 H 33 H Rate Blood Pressure 119/71 108/76 109/58 O2 Sat by Pulse 100 100 100 Oximetry O2 Sat by Pulse Oximetry [ Assessment] 09/28/16 09/28/16 09/28/16 07:45 08:00 08:01 Temperature 102.3 F H Pulse Rate 128 H 123 H Pulse Rate [ 139 H From Monitor] Respiratory 28 H 14 28 H Rate Blood Pressure 102/63 112/61 O2 Sat by Pulse 100 100 100 Oximetry O2 Sat by Pulse Oximetry [ Assessment] 09/28/16 09/28/16 09/28/16 08:15 08:30 08:45 Temperature Pulse Rate 131 H 127 H 131 H Pulse Rate [ From Monitor] Respiratory 29 H 16 24 Rate Blood Pressure 112/61 104/67 114/67 O2 Sat by Pulse 100 100 100 Oximetry O2 Sat by Pulse Oximetry [ Assessment] 09/28/16 09:00 Temperature Pulse Rate 135 H Pulse Rate [ From Monitor] Respiratory 24 Rate Blood Pressure 117/74 O2 Sat by Pulse 99 Oximetry O2 Sat by Pulse Oximetry [ Assessment] - General Appearance General appearance: intubated (via trach) EENT: ATNC Respiratory: Present: Other (coarse breath sounds) Cardiology: regular, S1S2 Gastrointestinal: normal, no tenderness, no distended, obese Integumentary: no rash Musculoskeletal: other (+edema) - Lab 09/28/16 03:45 09/28/16 03:45 Most recent lab results Calcium 7.1 mg/dL (8.4-10.2) L 09/28/16 03:45 Phosphorus 4.60 mg/dL (2.5-4.5) H 09/25/16 04:20 Magnesium 1.70 mg/dL (1.7-2.3) 09/26/16 04:25 Urine Creatinine 54.8 mg/dL (0.1-20.0) H 09/21/16 12:00 Urine Sodium 36 mEq/L 09/16/16 19:19 Urine Total Protein 16 mg/dL (5-11.8) H 09/16/16 19:19
[2016-09-28] MEDS: PLAVIX FEEDTUBE SCH (10:04)
[2016-09-28] MEDS: ASPIRIN PO SCH (10:35)
[2016-09-28] MEDS: PROTONIX IV SCH ×2 (10:35→21:26)
[2016-09-28] MEDS: LEVEMIR (NF) SUB-Q SCH (10:43)
--- NOTE | 2016-09-28 11:56 | Progress Note ---
Assessment and Plan - Patient Problems (1) Fungemia Current Visit: Yes Status: Acute Plan to address problem: 1. Continue Micafungin. 2. Vascath has been removed. Await removal of PICC. 3. Will repeat blood culture after PICC is removed. (2) Sepsis Current Visit: Yes Status: Acute Qualifiers: Sepsis type: sepsis due to unspecified organism Qualified Code(s): A41.9 - Sepsis, unspecified organism Plan to address problem: Patient has been receiving Meropenem empirically. Lungs remain clear. Blood, sputum and urine cultures are without significant bacterial growth. If no new culture data, will discontinue Meropenem. Continue enteral Vancomycin and IV Flagyl. (3) Chronic renal insufficiency Current Visit: Yes Status: Acute Qualifiers: Chronic kidney disease stage: C Plan to address problem: Antimicrobials are renally adjusted. Subjective Date of service: 09/28/16 Principal diagnosis: Acute resp failure on MVS; S/P Acute CVA; Acute Encephalopathy; JUANITA Interval history: Patient remains critically ill in ICU. Febrile to > 102 deg F today. On 2 pressors now, instead of 3, with continued Amiodarone. Objective - Constitutional Vitals: Vital Signs Temp Pulse Resp BP Pulse Ox 102.3 F H 137 H 35 H 110/70 100 09/28/16 08:00 09/28/16 11:15 09/28/16 11:15 09/28/16 11:15 09/28/16 11:01 Temperature -Last 24 Hours Temperature 102.3 F Temperature 99.9 F Temperature 99.7 F Temperature 100.6 F Temperature 98.7 F Temperature 98.7 F Temperature 98.8 F Temperature 98.8 F General appearance: Present: obese - EENT Eyes: no scleral icterus ENT: other (NG tube in place, bilious contents) - Neck Neck: other (tracheostomy, FiO2 40%) - Respiratory Respiratory effort: normal Respiratory: bilateral: rhonchi - Cardiovascular Rhythm: irregularly irregular (rate of 130s) Extremities: No edema - Gastrointestinal General gastrointestinal: Present: soft, non-distended, hypoactive bowel sounds , other ((+) PEG tube) Rectal Exam: other (rectal tube with bilious, watery stool) - Genitourinary Female genitourinary: other ([place] with dark yellow urine) - Integumentary Integumentary: no rash - Additional findings Additional findings: left femoral vascath removed; left PICC remains - Labs CBC & Chem 7: 09/28/16 03:45 09/28/16 03:45 Labs: Abnormal lab results 09/16/16 09/25/16 09/27/16 Range/Units 13:55 10:30 11:23 WBC (4.5-11.0) K/mm3 RBC (3.65-5.03) M/mm3 Hgb (10.1-14.3) gm/dl Hct (30.3-42.9) % RDW (13.2-15.2) % Plt Count (140-440) K/mm3 Lymphocytes % (Manual) (13.4-35.0) % Eosinophils % (Manual) (0.0-4.3) % Lymphocytes # (Manual) (1.2-5.4) K/mm3 Eosinophils # (Manual) (0.0-0.4) K/mm3 POC ABG pH (7.35-7.45) POC ABG pCO2 (35-45) POC ABG pO2 (80-105) Sodium (137-145) mmol/L Potassium (3.6-5.0) mmol/L Chloride (98-107) mmol/L Carbon Dioxide (22-30) mmol/L BUN (7-17) mg/dL Creatinine (0.7-1.2) mg/dL POC Glucose 114 H (70-105) Lactic Acid (0.7-2.0) mmol/L Calcium (8.4-10.2) mg/dL Crossmatch See Detail See Detail 09/27/16 09/27/16 09/28/16 Range/Units 15:00 18:15 03:45 WBC (4.5-11.0) K/mm3 RBC (3.65-5.03) M/mm3 Hgb (10.1-14.3) gm/dl Hct (30.3-42.9) % RDW (13.2-15.2) % Plt Count (140-440) K/mm3 Lymphocytes % (Manual) (13.4-35.0) % Eosinophils % (Manual) (0.0-4.3) % Lymphocytes # (Manual) (1.2-5.4) K/mm3 Eosinophils # (Manual) (0.0-0.4) K/mm3 POC ABG pH 7.459 H (7.35-7.45) POC ABG pCO2 27.1 L (35-45) POC ABG pO2 140 H (80-105) Sodium 135 L (137-145) mmol/L Potassium 3.5 L (3.6-5.0) mmol/L Chloride 94.4 L (98-107) mmol/L Carbon Dioxide 21 L (22-30) mmol/L BUN 28 H (7-17) mg/dL Creatinine 2.5 H (0.7-1.2) mg/dL POC Glucose 127 H (70-105) Lactic Acid (0.7-2.0) mmol/L Calcium 7.1 L (8.4-10.2) mg/dL Crossmatch 09/28/16 09/28/16 Range/Units 03:45 07:25 WBC 13.3 H (4.5-11.0) K/mm3 RBC 3.01 L (3.65-5.03) M/mm3 Hgb 8.4 L (10.1-14.3) gm/dl Hct 25.0 L (30.3-42.9) % RDW 20.5 H (13.2-15.2) % Plt Count 128 L (140-440) K/mm3 Lymphocytes % (Manual) 7.0 L (13.4-35.0) % Eosinophils % (Manual) 6.0 H (0.0-4.3) % Lymphocytes # (Manual) 0.9 L (1.2-5.4) K/mm3 Eosinophils # (Manual) 0.8 H (0.0-0.4) K/mm3 POC ABG pH (7.35-7.45) POC ABG pCO2 (35-45) POC ABG pO2 (80-105) Sodium (137-145) mmol/L Potassium (3.6-5.0) mmol/L Chloride (98-107) mmol/L Carbon Dioxide (22-30) mmol/L BUN (7-17) mg/dL Creatinine (0.7-1.2) mg/dL POC Glucose (70-105) Lactic Acid 4.50 H* (0.7-2.0) mmol/L Calcium (8.4-10.2) mg/dL Crossmatch Microbiology 09/23/16 16:55 Peripheral/Venous Blood Culture - Preliminary Silvia Albicans 09/23/16 16:55 Peripheral/Venous Blood Culture - Preliminary Silvia Albicans 09/23/16 16:30 Tracheal Aspirate Sputum Culture - Final 09/25/16 17:12 Peripheral/Venous Blood Fungal Culture - Preliminary Culture in Progress 09/25/16 17:12 Peripheral/Venous Blood Fungal Culture - Preliminary Culture in Progress 09/23/16 22:30 Urine,Catheterized - Indwelling Catheter Urine Culture - Final 09/13/16 10:30 Urine,[place] Urine Culture - Final NO GROWTH AFTER 48 HOURS 09/13/16 09:04 Peripheral/Venous Blood Culture - Final NO GROWTH AFTER 5 DAYS 09/13/16 08:39 Peripheral/Venous Blood Culture - Final NO GROWTH AFTER 5 DAYS 09/15/16 18:44 Stool Stool Occult Blood (HORTENCIA) - Final 09/13/16 14:06 Tracheal Aspirate Sputum Culture - Final 09/11/16 15:03 Stool C. difficile DNA Amplification - Final 09/10/16 10:58 Urine,Clean Catch Urine Culture - Preliminary NO GROWTH AFTER 48 HOURS 09/07/16 17:39 Tracheal Aspirate Sputum Culture - Final - Imaging and cardiology Chest x-ray: report reviewed (cardiomegaly otherwise clear lungs with interval change)
--- NOTE | 2016-09-28 12:19 | Progress Note ---
Assessment and Plan Acute hypoxic respiratory failure on mechanical ventilation s/p trach and PEG Acute left MCA CVA echocardiogram demonstrates at least moderate LVH but a normal LV systolic function, EF 50-55%. no thrombus visualized on transthoracic echocardiogram. Hypertension Now patient is hypotensive and on multiple pressors Acute on chronic renal failure initiated on dialysis this admission Leukocytosis - resolved Diabetes mellitus Anemia requiring transfusion of PRBCs Persistent Afib with RVR on multiple pressors s/p failed cardioversion on 09/25 on amiodarone drip and IV digoxin Recommendation: Continue intravenous digoxin and intravenous amiodarone drip for A. fib rate control. Subjective Date of service: 09/28/16 Principal diagnosis: Acute resp failure on MVS; S/P Acute CVA; Acute Encephalopathy; JUANITA Interval history: Remains intubated via trach. Continues on multiple pressors. Objective Vital Signs Temp Pulse Pulse Resp BP Pulse Ox Pulse Ox 09/28/16 11:58 137 H 110/70 100 09/28/16 11:15 137 H 35 H 110/70 09/28/16 11:01 137 H 29 H 110/70 100 09/28/16 10:45 134 H 16 108/77 100 09/28/16 10:30 138 H 19 116/72 100 09/28/16 10:15 139 H 19 117/74 100 09/28/16 10:00 137 H 14 120/67 100 09/28/16 09:45 122 H 20 113/64 100 09/28/16 09:30 134 H 14 103/61 100 09/28/16 09:15 130 H 42 H 104/65 100 09/28/16 09:00 135 H 24 117/74 99 09/28/16 08:45 131 H 24 114/67 100 09/28/16 08:30 127 H 16 104/67 100 09/28/16 08:15 131 H 29 H 112/61 100 09/28/16 08:01 123 H 28 H 112/61 100 09/28/16 08:00 102.3 F H 139 H 14 100 97 09/28/16 07:45 128 H 28 H 102/63 100 09/28/16 07:30 133 H 33 H 109/58 100 09/28/16 07:15 130 H 27 H 108/76 100 09/28/16 07:00 125 H 24 119/71 100 09/28/16 06:57 129 H 118/73 100 09/28/16 06:45 126 H 35 H 105/69 100 09/28/16 06:31 122 H 27 H 110/73 100 09/28/16 06:15 129 H 26 H 118/73 100 09/28/16 06:01 130 H 26 H 124/74 100 09/28/16 05:45 126 H 22 115/73 100 09/28/16 05:30 132 H 21 87/69 99 09/28/16 05:15 139 H 39 H 97/66 99 09/28/16 05:00 135 H 25 H 102/73 100 09/28/16 04:45 134 H 24 111/75 100 09/28/16 04:30 134 H 34 H 101/74 100 09/28/16 04:15 131/80 98 09/28/16 04:01 145 H 28 H 131/80 100 09/28/16 04:00 99.9 F H 135 H 120/71 94 09/28/16 03:45 118 H 34 H 130/84 100 09/28/16 03:30 139 H 31 H 131/80 100 09/28/16 03:15 140 H 24 131/83 100 09/28/16 03:01 137 H 29 H 139/80 99 09/28/16 02:45 136 H 29 H 139/35 99 09/28/16 02:30 145 H 34 H 148/86 99 09/28/16 02:15 138 H 35 H 145/99 100 09/28/16 02:01 131 H 145/99 100 09/28/16 01:45 134 H 126/72 99 09/28/16 01:30 129 H 126/72 99 09/28/16 01:15 133 H 130/69 99 09/28/16 01:00 133 H 125/77 99 09/28/16 00:45 135 H 115/76 98 09/28/16 00:35 98 09/28/16 00:31 145 H 110/83 100 09/28/16 00:20 138 H 110/83 99 09/28/16 00:15 134 H 110/80 99 09/28/16 00:00 132 H 116/72 99 09/27/16 23:57 131 H 134/73 98 09/27/16 23:48 99.7 F H 09/27/16 23:45 141 H 134/73 92 09/27/16 23:30 141 H 125/72 93 09/27/16 23:15 133 H 139/83 100 09/27/16 23:00 134 H 142/81 100 09/27/16 22:45 125 H 138/73 100 09/27/16 22:30 138 H 129/76 100 09/27/16 22:28 142 H 132/72 09/27/16 22:15 131 H 132/72 100 09/27/16 22:01 132 H 131/78 100 09/27/16 22:00 139 H 09/27/16 21:45 135 H 143/78 100 09/27/16 21:31 131 H 140/77 100 09/27/16 21:15 132 H 140/80 100 09/27/16 21:00 137 H 137/68 100 09/27/16 20:45 137 H 147/87 100 09/27/16 20:30 117 H 133/80 100 09/27/16 20:15 136 H 131/79 99 09/27/16 20:00 100.6 F H 130 H 151/85 99 09/27/16 19:45 130 H 138/82 100 09/27/16 19:30 134 H 137/77 99 09/27/16 19:18 143 H 148/87 100 09/27/16 19:15 139 H 148/87 100 09/27/16 19:01 134 H 158/102 100 09/27/16 18:53 133 H 158/92 09/27/16 18:45 138 H 158/92 100 09/27/16 18:34 98.7 F 142 H 37 H 170/95 09/27/16 18:30 135 H 158/92 100 09/27/16 18:24 143 H 158/97 09/27/16 18:15 151 H 170/95 100 09/27/16 18:00 131 H 158/97 100 09/27/16 17:45 134 H 160/97 100 09/27/16 17:30 142 H 147/90 100 09/27/16 17:15 141 H 147/99 100 09/27/16 17:00 138 H 137/88 100 09/27/16 16:45 142 H 134/85 100 09/27/16 16:30 145 H 139/86 100 09/27/16 16:15 140 H 132/80 100 09/27/16 16:01 137 H 132/80 100 09/27/16 16:00 98.7 F 140 H 104/50 100 99 09/27/16 15:51 98.8 F 133 H 32 H 95/57 09/27/16 15:50 124 H 104/50 09/27/16 15:45 126 H 104/50 100 09/27/16 15:30 125 H 103/57 100 09/27/16 15:15 125 H 118/75 100 09/27/16 15:00 128 H 118/75 99 09/27/16 14:45 113 H 116/77 100 09/27/16 14:31 102 H 110/74 100 09/27/16 14:15 98 H 95/55 100 09/27/16 14:00 102 H 99/54 100 09/27/16 13:45 102 H 121/63 100 09/27/16 13:30 107 H 121/63 100 09/27/16 13:15 117 H 126/84 100 09/27/16 13:00 102 H 121/68 98 09/27/16 12:45 101 H 128/68 97 09/27/16 12:30 104 H 144/76 97 Pulse Ox 09/28/16 11:58 09/28/16 11:15 09/28/16 11:01 09/28/16 10:45 09/28/16 10:30 09/28/16 10:15 09/28/16 10:00 09/28/16 09:45 09/28/16 09:30 09/28/16 09:15 09/28/16 09:00 09/28/16 08:45 09/28/16 08:30 09/28/16 08:15 09/28/16 08:01 09/28/16 08:00 09/28/16 07:45 09/28/16 07:30 09/28/16 07:15 09/28/16 07:00 09/28/16 06:57 09/28/16 06:45 09/28/16 06:31 09/28/16 06:15 09/28/16 06:01 09/28/16 05:45 09/28/16 05:30 09/28/16 05:15 09/28/16 05:00 09/28/16 04:45 09/28/16 04:30 09/28/16 04:15 09/28/16 04:01 09/28/16 04:00 09/28/16 03:45 09/28/16 03:30 09/28/16 03:15 09/28/16 03:01 09/28/16 02:45 09/28/16 02:30 09/28/16 02:15 09/28/16 02:01 09/28/16 01:45 09/28/16 01:30 09/28/16 01:15 09/28/16 01:00 09/28/16 00:45 09/28/16 00:35 09/28/16 00:31 09/28/16 00:20 09/28/16 00:15 09/28/16 00:00 09/27/16 23:57 09/27/16 23:48 09/27/16 23:45 09/27/16 23:30 09/27/16 23:15 09/27/16 23:00 09/27/16 22:45 09/27/16 22:30 09/27/16 22:28 09/27/16 22:15 09/27/16 22:01 09/27/16 22:00 09/27/16 21:45 09/27/16 21:31 09/27/16 21:15 09/27/16 21:00 09/27/16 20:45 09/27/16 20:30 09/27/16 20:15 09/27/16 20:00 09/27/16 19:45 09/27/16 19:30 09/27/16 19:18 09/27/16 19:15 09/27/16 19:01 09/27/16 18:53 09/27/16 18:45 09/27/16 18:34 100 09/27/16 18:30 09/27/16 18:24 09/27/16 18:15 09/27/16 18:00 09/27/16 17:45 09/27/16 17:30 09/27/16 17:15 09/27/16 17:00 09/27/16 16:45 09/27/16 16:30 09/27/16 16:15 09/27/16 16:01 09/27/16 16:00 09/27/16 15:51 100 09/27/16 15:50 09/27/16 15:45 09/27/16 15:30 09/27/16 15:15 09/27/16 15:00 09/27/16 14:45 09/27/16 14:31 09/27/16 14:15 09/27/16 14:00 09/27/16 13:45 09/27/16 13:30 09/27/16 13:15 09/27/16 13:00 09/27/16 12:45 09/27/16 12:30 - Physical Examination General: Other (intubated via trach) Cardiac: Positive: irregularly irregular - Labs and Meds CBC 09/28/16 Range/Units 03:45 WBC 13.3 H (4.5-11.0) K/mm3 RBC 3.01 L (3.65-5.03) M/mm3 Hgb 8.4 L (10.1-14.3) gm/dl Hct 25.0 L (30.3-42.9) % Plt Count 128 L (140-440) K/mm3 Comprehensive Metabolic Panel 09/28/16 Range/Units 03:45 Sodium 135 L (137-145) mmol/L Potassium 3.5 L (3.6-5.0) mmol/L Chloride 94.4 L (98-107) mmol/L Carbon Dioxide 21 L (22-30) mmol/L BUN 28 H (7-17) mg/dL Creatinine 2.5 H (0.7-1.2) mg/dL Glucose 87 (65-100) mg/dL Calcium 7.1 L (8.4-10.2) mg/dL - Imaging and Cardiology EKG: image reviewed - Allied health notes Allied health notes reviewed: RT
--- NOTE | 2016-09-28 12:23 | Progress Note ---
Assessment and Plan (1) Acute respiratory failure with hypoxia Current Visit: Yes Status: Acute Plan to address problem: - continue aspiration precautions / address VAP bundles - continue to wean oxygen for MAP > 94% - continue bronchodilators and pulmonary toilet - tapered off systemic steroids (no active needs pulmonary-aquino) - completed empiric levaquin dosing - s/p tracheostomy - placed back on AC mode after review of ABG and secondary to increased work of breathing - increased set rate also - we will continue to hold on weaning today due to hemodynamic instability (2) Acute CVA (cerebrovascular accident) Current Visit: Yes Status: Acute Plan to address problem: - out of tpA window (initially stopped due to uncontrolled HTN) - Left MCA teritory stroke with some midline shift on last CT - seen by neurology and prognosis for recovery of mental status guarded to poor - optimizing secondary prevention modalities now (BP, lipid anti-platelet therapy) - off systemic steroids now (started earlier for edema) - resumed ASA and Plavix (3) Hypertensive emergency Current Visit: Yes Status: Acute Plan to address problem: - stopped all antihypertensives while septic - follow cllinically (4) Obesity (BMI 35.0-39.9 without comorbidity) Current Visit: Yes Status: Chronic Plan to address problem: - increased reglan dose - resume trickle feeding at 10mls/hr (5) Type 2 diabetes mellitus Current Visit: Yes Status: Chronic Qualifiers: Diabetes mellitus complication status: D Diabetes mellitus complication detail: D Diabetic retinopathy severity: D Proliferative retinopathy type: P Diabetes mellitus macular edema: D 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 Laterality: L Chronic kidney disease stage: C Plan to address problem: - continue SSI - continue lantus at 8 units sq q24h (6) Leukocytosis (leucocytosis) Current Visit: Yes Status: Acute Qualifiers: Leukocytosis type: leukemoid reaction Qualified Code(s): D72.823 - Leukemoid reaction Plan to address problem: - has been spiking fevers also - fungemia noted - started diflucan as growing dann albicans but will follow sensitivities - will discontinue diflucan re: amiodarone interaction and begin micafungin (7) Agitation Current Visit: Yes Status: Acute Plan to address problem: - prn sedation / analgesia - taper off seroquel for now (8) Atrial fibrillation Current Visit: Yes Status: Acute Qualifiers: Atrial fibrillation type: A Plan to address problem: - failed cardioversion earlier - cardiology evaluation ongoing - on amiodarone drip (9) JUANITA (acute kidney injury) Current Visit: Yes Status: Acute Plan to address problem: - on Dialysis now - oliguric - will defer to nephrology - continue vasopressor support re: cardiorenal issues and to aid dialysis - BP's better but still on phenylephrine, vasopressin and low dose levophed (10) Pyrexia of unknown origin Current Visit: Yes Status: Acute Plan to address problem: - will get dopplers as part of a PUO work-up to r/o VTE - continue to treat with AB;'s empirically - change diflucan to micafungin (11) Severe sepsis Current Visit: Yes Status: Acute Plan to address problem: - SvO2 estimate was 55% yesterday - volume resuscitated to boost cardiac output and tissue oxygen delivery - continue AB's and follow cultures - wean vasopressors for target MAP >/= 60-65mmHg - changed diflucan to micafungin - will need to discontinue central lines and vascath (will discontinue vascath after dialysis today then get new PICC line tomorrow before discontinuing current line as she is on pressors) - plan to replace vascath before next dialysis session / after 48hrs - care plan formulated with ID input - vascath is now removed and will pull PICC line now (12) Discharge planning issues Current Visit: Yes Status: Acute Plan to address problem: - she remains critically ill on life sustaining interventions including MVS and at risk for further acute deterioration including .....35' CCT ....prognosis is guarded ...care plan discussed during team rounds and with her brother today Subjective Date of service: 09/28/16 Principal diagnosis: Acute resp failure on MVS; S/P Acute CVA; Acute Encephalopathy; JUANITA Interval history: Seen and examined at bedside; 24 hour events reviewed; nursing and respiratory care staff consulted; remains on multiple vasopressors; resting peacefully in bed; remains on vaspressors but weaning down; neosynephrine at 50mics; AMS is persistent; gastric effluent remains large; no gross bleeding; s/p right IJ CVL now; no new issues respiratory-aquino Objective Vital Signs - 12hr 09/28/16 09/28/16 09/28/16 00:31 00:35 00:45 Temperature Pulse Rate 145 H 135 H Pulse Rate [ From Monitor] Respiratory Rate Blood Pressure 110/83 115/76 O2 Sat by Pulse 100 98 Oximetry O2 Sat by Pulse 98 Oximetry [ Assessment] 09/28/16 09/28/16 09/28/16 01:00 01:15 01:30 Temperature Pulse Rate 133 H 133 H 129 H Pulse Rate [ From Monitor] Respiratory Rate Blood Pressure 125/77 130/69 126/72 O2 Sat by Pulse 99 99 99 Oximetry O2 Sat by Pulse Oximetry [ Assessment] 09/28/16 09/28/16 09/28/16 01:45 02:01 02:15 Temperature Pulse Rate 134 H 131 H 138 H Pulse Rate [ From Monitor] Respiratory 35 H Rate Blood Pressure 126/72 145/99 145/99 O2 Sat by Pulse 99 100 100 Oximetry O2 Sat by Pulse Oximetry [ Assessment] 09/28/16 09/28/16 09/28/16 02:30 02:45 03:01 Temperature Pulse Rate 145 H 136 H 137 H Pulse Rate [ From Monitor] Respiratory 34 H 29 H 29 H Rate Blood Pressure 148/86 139/35 139/80 O2 Sat by Pulse 99 99 99 Oximetry O2 Sat by Pulse Oximetry [ Assessment] 09/28/16 09/28/16 09/28/16 03:15 03:30 03:45 Temperature Pulse Rate 140 H 139 H 118 H Pulse Rate [ From Monitor] Respiratory 24 31 H 34 H Rate Blood Pressure 131/83 131/80 130/84 O2 Sat by Pulse 100 100 100 Oximetry O2 Sat by Pulse Oximetry [ Assessment] 09/28/16 09/28/16 09/28/16 04:00 04:01 04:15 Temperature 99.9 F H Pulse Rate 135 H 145 H Pulse Rate [ From Monitor] Respiratory 28 H Rate Blood Pressure 120/71 131/80 131/80 O2 Sat by Pulse 94 100 98 Oximetry O2 Sat by Pulse Oximetry [ Assessment] 09/28/16 09/28/16 09/28/16 04:30 04:45 05:00 Temperature Pulse Rate 134 H 134 H 135 H Pulse Rate [ From Monitor] Respiratory 34 H 24 25 H Rate Blood Pressure 101/74 111/75 102/73 O2 Sat by Pulse 100 100 100 Oximetry O2 Sat by Pulse Oximetry [ Assessment] 08/11/0609/28/16 09/28/16 05:15 05:30 05:45 Temperature Pulse Rate 139 H 132 H 126 H Pulse Rate [ From Monitor] Respiratory 39 H 21 22 Rate Blood Pressure 97/66 87/69 115/73 O2 Sat by Pulse 99 99 100 Oximetry O2 Sat by Pulse Oximetry [ Assessment] 09/28/16 09/28/16 09/28/16 06:01 06:15 06:31 Temperature Pulse Rate 130 H 129 H 122 H Pulse Rate [ From Monitor] Respiratory 26 H 26 H 27 H Rate Blood Pressure 124/74 118/73 110/73 O2 Sat by Pulse 100 100 100 Oximetry O2 Sat by Pulse Oximetry [ Assessment] 09/28/16 09/28/16 09/28/16 06:45 06:57 07:00 Temperature Pulse Rate 126 H 129 H 125 H Pulse Rate [ From Monitor] Respiratory 35 H 24 Rate Blood Pressure 105/69 118/73 119/71 O2 Sat by Pulse 100 100 100 Oximetry O2 Sat by Pulse Oximetry [ Assessment] 09/28/16 09/28/16 09/28/16 07:15 07:30 07:45 Temperature Pulse Rate 130 H 133 H 128 H Pulse Rate [ From Monitor] Respiratory 27 H 33 H 28 H Rate Blood Pressure 108/76 109/58 102/63 O2 Sat by Pulse 100 100 100 Oximetry O2 Sat by Pulse Oximetry [ Assessment] 09/28/16 09/28/16 09/28/16 08:00 08:01 08:15 Temperature 102.3 F H Pulse Rate 123 H 131 H Pulse Rate [ 139 H From Monitor] Respiratory 14 28 H 29 H Rate Blood Pressure 112/61 112/61 O2 Sat by Pulse 100 100 100 Oximetry O2 Sat by Pulse 97 Oximetry [ Assessment] 09/28/16 09/28/16 09/28/16 08:30 08:45 09:00 Temperature Pulse Rate 127 H 131 H 135 H Pulse Rate [ From Monitor] Respiratory 16 24 24 Rate Blood Pressure 104/67 114/67 117/74 O2 Sat by Pulse 100 100 99 Oximetry O2 Sat by Pulse Oximetry [ Assessment] 09/28/16 09/28/16 09/28/16 09:15 09:30 09:45 Temperature Pulse Rate 130 H 134 H 122 H Pulse Rate [ From Monitor] Respiratory 42 H 14 20 Rate Blood Pressure 104/65 103/61 113/64 O2 Sat by Pulse 100 100 100 Oximetry O2 Sat by Pulse Oximetry [ Assessment] 09/28/16 09/28/16 09/28/16 10:00 10:15 10:30 Temperature Pulse Rate 137 H 139 H 138 H Pulse Rate [ From Monitor] Respiratory 14 19 19 Rate Blood Pressure 120/67 117/74 116/72 O2 Sat by Pulse 100 100 100 Oximetry O2 Sat by Pulse Oximetry [ Assessment] 09/28/16 09/28/16 09/28/16 10:45 11:01 11:15 Temperature Pulse Rate 134 H 137 H 137 H Pulse Rate [ From Monitor] Respiratory 16 29 H 35 H Rate Blood Pressure 108/77 110/70 110/70 O2 Sat by Pulse 100 100 Oximetry O2 Sat by Pulse Oximetry [ Assessment] 09/28/16 11:58 Temperature Pulse Rate 137 H Pulse Rate [ From Monitor] Respiratory Rate Blood Pressure 110/70 O2 Sat by Pulse 100 Oximetry O2 Sat by Pulse Oximetry [ Assessment] Constitutional: no acute distress, other (encephalopathic; off sedation now) Eyes: non-icteric, other (tracheostomy tube in midline of neck) ENT: oropharynx moist Neck: supple, no lymphadenopathy Effort: mildly labored Ascultation: Bilateral: diminished breath sounds, rhonchi (bases) Cardiovascular: regular rate and rhythm Gastrointestinal: hypoactive bowel sounds, soft, non-tender, non-distended Integumentary: normal Extremities: no cyanosis, no edema, pulses normal, no ischemia or petechiae Neurologic: pupils equal and round, other (sedated) Psychiatric: other (unable to assess) CBC and BMP: 09/28/16 03:45 09/28/16 03:45 ABG, PT/INR, D-dimer: ABG POC ABG pH 7.459 (7.35-7.45) H 09/27/16 15:00 POC ABG pCO2 27.1 (35-45) L 09/27/16 15:00 POC ABG pO2 140 (80-105) H 09/27/16 15:00 POC ABG HCO3 19.3 09/27/16 15:00 POC ABG Total CO2 20 09/27/16 15:00 POC ABG O2 Sat 99 09/27/16 15:00 PT/INR, D-dimer PT 13.8 Sec. (12.2-14.9) 09/15/16 05:00 INR 1.01 (0.87-1.13) 09/15/16 05:00 Abnormal lab findings: Abnormal Labs 09/03/16 09/03/16 09/03/16 12:12 15:07 16:20 WBC RBC Hgb Hct MCV MCH MCHC RDW Plt Count Lymph % (Auto) [place] % (Auto) Lymph # [place] # Seg Neutrophils % Seg Neuts % (Manual) Lymphocytes % (Manual) Monocytes % (Manual) Eosinophils % (Manual) Basophils % (Manual) Seg Neutrophils # Seg Neutrophils # Man Lymphocytes # (Manual) Monocytes # (Manual) Eosinophils # (Manual) Fibrinogen dRVVT Confirm Interp Factor V Activity POC ABG pH 7.452 H POC ABG pCO2 POC ABG pO2 Sodium Potassium Chloride Carbon Dioxide BUN Creatinine Glucose POC Glucose 178 H Lactic Acid Calcium Phosphorus 2.20 L Magnesium 1.60 L C-Reactive Protein Total Protein Albumin Triglycerides HDL Cholesterol Urine WBC (Auto) Urine Creatinine Urine Total Protein Vancomycin Trough Rheumatoid Factor Complement C4 Crossmatch 09/03/16 09/03/16 09/03/16 17:57 17:58 23:50 WBC RBC Hgb Hct MCV MCH MCHC RDW Plt Count Lymph % (Auto) [place] % (Auto) Lymph # [place] # Seg Neutrophils % Seg Neuts % (Manual) Lymphocytes % (Manual) Monocytes % (Manual) Eosinophils % (Manual) Basophils % (Manual) Seg Neutrophils # Seg Neutrophils # Man Lymphocytes # (Manual) Monocytes # (Manual) Eosinophils # (Manual) Fibrinogen dRVVT Confirm Interp Factor V Activity POC ABG pH POC ABG pCO2 POC ABG pO2 Sodium Potassium Chloride Carbon Dioxide BUN Creatinine Glucose POC Glucose 162 H 145 H Lactic Acid Calcium Phosphorus 2.30 L Magnesium C-Reactive Protein Total Protein Albumin Triglycerides HDL Cholesterol Urine WBC (Auto) Urine Creatinine Urine Total Protein Vancomycin Trough Rheumatoid Factor Complement C4 Crossmatch 09/04/16 09/04/16 09/04/16 03:31 03:31 05:42 WBC RBC Hgb 9.7 L D Hct MCV 72 L MCH 23 L MCHC RDW 17.5 H Plt Count Lymph % (Auto) 11.1 L [place] % (Auto) Lymph # [place] # Seg Neutrophils % 84.3 H Seg Neuts % (Manual) Lymphocytes % (Manual) Monocytes % (Manual) Eosinophils % (Manual) Basophils % (Manual) Seg Neutrophils # 8.9 H Seg Neutrophils # Man Lymphocytes # (Manual) Monocytes # (Manual) Eosinophils # (Manual) Fibrinogen dRVVT Confirm Interp Factor V Activity POC ABG pH POC ABG pCO2 POC ABG pO2 Sodium 135 L Potassium 2.9 L* Chloride 97.2 L Carbon Dioxide 19 L BUN Creatinine 1.7 H Glucose 170 H POC Glucose 152 H Lactic Acid Calcium Phosphorus Magnesium C-Reactive Protein Total Protein Albumin Triglycerides 160 H HDL Cholesterol 31 L Urine WBC (Auto) Urine Creatinine Urine Total Protein Vancomycin Trough Rheumatoid Factor Complement C4 Crossmatch 09/04/16 09/04/16 09/04/16 11:34 17:46 23:29 WBC RBC Hgb Hct MCV MCH MCHC RDW Plt Count Lymph % (Auto) [place] % (Auto) Lymph # [place] # Seg Neutrophils % Seg Neuts % (Manual) Lymphocytes % (Manual) Monocytes % (Manual) Eosinophils % (Manual) Basophils % (Manual) Seg Neutrophils # Seg Neutrophils # Man Lymphocytes # (Manual) Monocytes # (Manual) Eosinophils # (Manual) Fibrinogen dRVVT Confirm Interp Factor V Activity POC ABG pH POC ABG pCO2 POC ABG pO2 Sodium Potassium Chloride Carbon Dioxide BUN Creatinine Glucose POC Glucose 165 H 210 H 139 H Lactic Acid Calcium Phosphorus Magnesium C-Reactive Protein Total Protein Albumin Triglycerides HDL Cholesterol Urine WBC (Auto) Urine Creatinine Urine Total Protein Vancomycin Trough Rheumatoid Factor Complement C4 Crossmatch 09/05/16 09/05/16 09/05/16 04:05 04:05 05:38 WBC RBC Hgb Hct MCV 76 L D MCH 23 L MCHC RDW 17.8 H Plt Count Lymph % (Auto) [place] % (Auto) Lymph # [place] # Seg Neutrophils % Seg Neuts % (Manual) Lymphocytes % (Manual) Monocytes % (Manual) Eosinophils % (Manual) Basophils % (Manual) Seg Neutrophils # Seg Neutrophils # Man Lymphocytes # (Manual) Monocytes # (Manual) Eosinophils # (Manual) Fibrinogen dRVVT Confirm Interp Factor V Activity POC ABG pH POC ABG pCO2 POC ABG pO2 Sodium 134 L Potassium Chloride Carbon Dioxide 18 L BUN Creatinine 1.8 H Glucose 192 H POC Glucose 175 H Lactic Acid Calcium Phosphorus Magnesium C-Reactive Protein Total Protein Albumin Triglycerides HDL Cholesterol Urine WBC (Auto) Urine Creatinine Urine Total Protein Vancomycin Trough Rheumatoid Factor Complement C4 Crossmatch 09/05/16 09/05/16 09/05/16 11:38 17:48 23:22 WBC RBC Hgb Hct MCV MCH MCHC RDW Plt Count Lymph % (Auto) [place] % (Auto) Lymph # [place] # Seg Neutrophils % Seg Neuts % (Manual) Lymphocytes % (Manual) Monocytes % (Manual) Eosinophils % (Manual) Basophils % (Manual) Seg Neutrophils # Seg Neutrophils # Man Lymphocytes # (Manual) Monocytes # (Manual) Eosinophils # (Manual) Fibrinogen dRVVT Confirm Interp Factor V Activity POC ABG pH POC ABG pCO2 POC ABG pO2 Sodium Potassium Chloride Carbon Dioxide BUN Creatinine Glucose POC Glucose 164 H 186 H 195 H Lactic Acid Calcium Phosphorus Magnesium C-Reactive Protein Total Protein Albumin Triglycerides HDL Cholesterol Urine WBC (Auto) Urine Creatinine Urine Total Protein Vancomycin Trough Rheumatoid Factor Complement C4 Crossmatch 09/06/16 09/06/16 09/06/16 04:12 05:59 07:32 WBC RBC Hgb Hct MCV MCH MCHC RDW Plt Count Lymph % (Auto) [place] % (Auto) Lymph # [place] # Seg Neutrophils % Seg Neuts % (Manual) Lymphocytes % (Manual) Monocytes % (Manual) Eosinophils % (Manual) Basophils % (Manual) Seg Neutrophils # Seg Neutrophils # Man Lymphocytes # (Manual) Monocytes # (Manual) Eosinophils # (Manual) Fibrinogen dRVVT Confirm Interp Factor V Activity POC ABG pH 7.514 H POC ABG pCO2 29.1 L POC ABG pO2 72 L Sodium 133 L Potassium 3.4 L Chloride 94.9 L Carbon Dioxide 19 L BUN 30 H Creatinine 2.1 H Glucose 139 H POC Glucose 146 H Lactic Acid Calcium Phosphorus Magnesium C-Reactive Protein Total Protein Albumin Triglycerides HDL Cholesterol Urine WBC (Auto) Urine Creatinine Urine Total Protein Vancomycin Trough Rheumatoid Factor Complement C4 Crossmatch 09/06/16 09/06/16 09/06/16 11:57 17:58 19:02 WBC RBC Hgb Hct MCV MCH MCHC RDW Plt Count Lymph % (Auto) [place] % (Auto) Lymph # [place] # Seg Neutrophils % Seg Neuts % (Manual) Lymphocytes % (Manual) Monocytes % (Manual) Eosinophils % (Manual) Basophils % (Manual) Seg Neutrophils # Seg Neutrophils # Man Lymphocytes # (Manual) Monocytes # (Manual) Eosinophils # (Manual) Fibrinogen dRVVT Confirm Interp Factor V Activity POC ABG pH 7.465 H POC ABG pCO2 32.0 L POC ABG pO2 Sodium Potassium Chloride Carbon Dioxide BUN Creatinine Glucose POC Glucose 165 H 160 H Lactic Acid Calcium Phosphorus Magnesium C-Reactive Protein Total Protein Albumin Triglycerides HDL Cholesterol Urine WBC (Auto) Urine Creatinine Urine Total Protein Vancomycin Trough Rheumatoid Factor Complement C4 Crossmatch 09/06/16 09/07/16 09/07/16 23:45 02:47 02:47 WBC RBC Hgb Hct MCV MCH MCHC RDW Plt Count Lymph % (Auto) [place] % (Auto) Lymph # [place] # Seg Neutrophils % Seg Neuts % (Manual) Lymphocytes % (Manual) Monocytes % (Manual) Eosinophils % (Manual) Basophils % (Manual) Seg Neutrophils # Seg Neutrophils # Man Lymphocytes # (Manual) Monocytes # (Manual) Eosinophils # (Manual) Fibrinogen dRVVT Confirm Interp Factor V Activity POC ABG pH POC ABG pCO2 POC ABG pO2 Sodium Potassium Chloride Carbon Dioxide BUN Creatinine Glucose POC Glucose 204 H Lactic Acid Calcium Phosphorus Magnesium C-Reactive Protein Total Protein Albumin Triglycerides HDL Cholesterol Urine WBC (Auto) 68.0 H Urine Creatinine 106.1 H Urine Total Protein Vancomycin Trough Rheumatoid Factor Complement C4 Crossmatch 09/07/16 09/07/16 09/07/16 04:50 06:19 06:39 WBC RBC Hgb Hct MCV MCH MCHC RDW Plt Count Lymph % (Auto) [place] % (Auto) Lymph # [place] # Seg Neutrophils % Seg Neuts % (Manual) Lymphocytes % (Manual) Monocytes % (Manual) Eosinophils % (Manual) Basophils % (Manual) Seg Neutrophils # Seg Neutrophils # Man Lymphocytes # (Manual) Monocytes # (Manual) Eosinophils # (Manual) Fibrinogen dRVVT Confirm Interp Factor V Activity POC ABG pH 7.457 H POC ABG pCO2 32.1 L POC ABG pO2 76 L Sodium 132 L Potassium Chloride 94.7 L Carbon Dioxide BUN 53 H Creatinine 2.9 H Glucose 151 H POC Glucose 149 H Lactic Acid Calcium Phosphorus Magnesium C-Reactive Protein Total Protein Albumin Triglycerides HDL Cholesterol Urine WBC (Auto) Urine Creatinine Urine Total Protein Vancomycin Trough Rheumatoid Factor Complement C4 Crossmatch 09/07/16 09/07/16 09/07/16 09:20 11:43 11:43 WBC 19.4 H RBC Hgb 8.3 L Hct 26.4 L D MCV 72 L D MCH 22 L MCHC RDW 17.9 H Plt Count Lymph % (Auto) 8.5 L [place] % (Auto) Lymph # [place] # 1.0 H Seg Neutrophils % 85.8 H Seg Neuts % (Manual) Lymphocytes % (Manual) Monocytes % (Manual) Eosinophils % (Manual) Basophils % (Manual) Seg Neutrophils # 16.6 H Seg Neutrophils # Man Lymphocytes # (Manual) Monocytes # (Manual) Eosinophils # (Manual) Fibrinogen dRVVT Confirm Interp Factor V Activity POC ABG pH POC ABG pCO2 POC ABG pO2 Sodium 134 L Potassium Chloride 97.2 L Carbon Dioxide 20 L BUN 58 H Creatinine 2.9 H Glucose 147 H POC Glucose Lactic Acid Calcium Phosphorus 2.40 L Magnesium 2.40 H C-Reactive Protein Total Protein 5.8 L Albumin 2.2 L Triglycerides HDL Cholesterol Urine WBC (Auto) Urine Creatinine Urine Total Protein Vancomycin Trough Rheumatoid Factor Complement C4 58 H Crossmatch 09/07/16 09/07/16 09/07/16 11:50 16:00 17:31 WBC RBC Hgb Hct MCV MCH MCHC RDW Plt Count Lymph % (Auto) [place] % (Auto) Lymph # [place] # Seg Neutrophils % Seg Neuts % (Manual) Lymphocytes % (Manual) Monocytes % (Manual) Eosinophils % (Manual) Basophils % (Manual) Seg Neutrophils # Seg Neutrophils # Man Lymphocytes # (Manual) Monocytes # (Manual) Eosinophils # (Manual) Fibrinogen dRVVT Confirm Interp Factor V Activity POC ABG pH POC ABG pCO2 POC ABG pO2 158 H Sodium Potassium Chloride Carbon Dioxide BUN Creatinine Glucose POC Glucose 175 H Lactic Acid Calcium Phosphorus Magnesium C-Reactive Protein Total Protein Albumin Triglycerides HDL Cholesterol Urine WBC (Auto) Urine Creatinine 66.3 H Urine Total Protein Vancomycin Trough Rheumatoid Factor Complement C4 Crossmatch 09/07/16 09/08/16 09/08/16 23:50 05:46 06:18 WBC 17.8 H RBC 3.58 L Hgb 8.1 L Hct 25.5 L MCV 71 L MCH 23 L MCHC RDW 18.4 H Plt Count Lymph % (Auto) [place] % (Auto) Lymph # [place] # Seg Neutrophils % Seg Neuts % (Manual) 92.0 H Lymphocytes % (Manual) 6.0 L Monocytes % (Manual) Eosinophils % (Manual) Basophils % (Manual) Seg Neutrophils # Seg Neutrophils # Man 16.4 H Lymphocytes # (Manual) 1.1 L Monocytes # (Manual) Eosinophils # (Manual) Fibrinogen dRVVT Confirm Interp Factor V Activity POC ABG pH POC ABG pCO2 34.3 L POC ABG pO2 71 L Sodium Potassium Chloride Carbon Dioxide BUN Creatinine Glucose POC Glucose 216 H Lactic Acid Calcium Phosphorus Magnesium C-Reactive Protein Total Protein Albumin Triglycerides HDL Cholesterol Urine WBC (Auto) Urine Creatinine Urine Total Protein Vancomycin Trough Rheumatoid Factor Complement C4 Crossmatch 09/08/16 09/08/16 09/08/16 06:18 06:51 10:55 WBC RBC Hgb Hct MCV MCH MCHC RDW Plt Count Lymph % (Auto) [place] % (Auto) Lymph # [place] # Seg Neutrophils % Seg Neuts % (Manual) Lymphocytes % (Manual) Monocytes % (Manual) Eosinophils % (Manual) Basophils % (Manual) Seg Neutrophils # Seg Neutrophils # Man Lymphocytes # (Manual) Monocytes # (Manual) Eosinophils # (Manual) Fibrinogen dRVVT Confirm Interp Factor V Activity POC ABG pH POC ABG pCO2 POC ABG pO2 Sodium 133 L Potassium Chloride 96.9 L Carbon Dioxide 20 L BUN 63 H Creatinine 2.7 H Glucose 195 H POC Glucose 204 H 169 H Lactic Acid Calcium Phosphorus Magnesium C-Reactive Protein Total Protein Albumin Triglycerides HDL Cholesterol Urine WBC (Auto) Urine Creatinine Urine Total Protein Vancomycin Trough Rheumatoid Factor Complement C4 Crossmatch 09/08/16 09/08/16 09/08/16 11:48 11:48 11:48 WBC RBC Hgb Hct MCV MCH MCHC RDW Plt Count Lymph % (Auto) [place] % (Auto) Lymph # [place] # Seg Neutrophils % Seg Neuts % (Manual) Lymphocytes % (Manual) Monocytes % (Manual) Eosinophils % (Manual) Basophils % (Manual) Seg Neutrophils # Seg Neutrophils # Man Lymphocytes # (Manual) Monocytes # (Manual) Eosinophils # (Manual) Fibrinogen 750 H dRVVT Confirm Interp Factor V Activity POC ABG pH POC ABG pCO2 POC ABG pO2 Sodium Potassium Chloride Carbon Dioxide BUN Creatinine Glucose POC Glucose Lactic Acid Calcium Phosphorus Magnesium C-Reactive Protein 15.70 H Total Protein Albumin Triglycerides HDL Cholesterol Urine WBC (Auto) Urine Creatinine Urine Total Protein Vancomycin Trough Rheumatoid Factor 24 H Complement C4 Crossmatch 09/08/16 09/08/16 09/09/16 15:35 18:25 00:24 WBC RBC Hgb Hct MCV MCH MCHC RDW Plt Count Lymph % (Auto) [place] % (Auto) Lymph # [place] # Seg Neutrophils % Seg Neuts % (Manual) Lymphocytes % (Manual) Monocytes % (Manual) Eosinophils % (Manual) Basophils % (Manual) Seg Neutrophils # Seg Neutrophils # Man Lymphocytes # (Manual) Monocytes # (Manual) Eosinophils # (Manual) Fibrinogen dRVVT Confirm Interp Factor V Activity 182 H POC ABG pH POC ABG pCO2 POC ABG pO2 Sodium Potassium Chloride Carbon Dioxide BUN Creatinine Glucose POC Glucose 184 H 216 H Lactic Acid Calcium Phosphorus Magnesium C-Reactive Protein Total Protein Albumin Triglycerides HDL Cholesterol Urine WBC (Auto) Urine Creatinine Urine Total Protein Vancomycin Trough Rheumatoid Factor Complement C4 Crossmatch 09/09/16 09/09/16 09/09/16 03:00 03:00 04:04 WBC 27.9 H RBC Hgb 8.7 L Hct 28.1 L MCV 72 L MCH 22 L MCHC RDW 18.4 H Plt Count 485 H Lymph % (Auto) [place] % (Auto) Lymph # [place] # Seg Neutrophils % Seg Neuts % (Manual) 77.0 H Lymphocytes % (Manual) 9.0 L Monocytes % (Manual) Eosinophils % (Manual) Basophils % (Manual) Seg Neutrophils # Seg Neutrophils # Man 21.5 H Lymphocytes # (Manual) Monocytes # (Manual) 2.0 H Eosinophils # (Manual) Fibrinogen dRVVT Confirm Interp Factor V Activity POC ABG pH POC ABG pCO2 POC ABG pO2 121 H Sodium 135 L Potassium Chloride 96.3 L Carbon Dioxide 21 L BUN 83 H Creatinine 3.0 H Glucose 135 H POC Glucose Lactic Acid Calcium Phosphorus Magnesium C-Reactive Protein Total Protein Albumin Triglycerides HDL Cholesterol Urine WBC (Auto) Urine Creatinine Urine Total Protein Vancomycin Trough Rheumatoid Factor Complement C4 Crossmatch 09/09/16 09/09/16 09/09/16 05:41 11:55 14:13 WBC RBC Hgb Hct MCV MCH MCHC RDW Plt Count Lymph % (Auto) [place] % (Auto) Lymph # [place] # Seg Neutrophils % Seg Neuts % (Manual) Lymphocytes % (Manual) Monocytes % (Manual) Eosinophils % (Manual) Basophils % (Manual) Seg Neutrophils # Seg Neutrophils # Man Lymphocytes # (Manual) Monocytes # (Manual) Eosinophils # (Manual) Fibrinogen dRVVT Confirm Interp Factor V Activity POC ABG pH POC ABG pCO2 POC ABG pO2 Sodium Potassium Chloride Carbon Dioxide BUN Creatinine Glucose POC Glucose 155 H 186 H Lactic Acid Calcium Phosphorus Magnesium C-Reactive Protein Total Protein Albumin Triglycerides HDL Cholesterol Urine WBC (Auto) 25.0 H Urine Creatinine Urine Total Protein Vancomycin Trough Rheumatoid Factor Complement C4 Crossmatch 09/09/16 09/09/1617 17:33 23:13 05:09 WBC RBC Hgb Hct MCV MCH MCHC RDW Plt Count Lymph % (Auto) [place] % (Auto) Lymph # [place] # Seg Neutrophils % Seg Neuts % (Manual) Lymphocytes % (Manual) Monocytes % (Manual) Eosinophils % (Manual) Basophils % (Manual) Seg Neutrophils # Seg Neutrophils # Man Lymphocytes # (Manual) Monocytes # (Manual) Eosinophils # (Manual) Fibrinogen dRVVT Confirm Interp Factor V Activity POC ABG pH POC ABG pCO2 POC ABG pO2 74 L Sodium Potassium Chloride Carbon Dioxide BUN Creatinine Glucose POC Glucose 211 H 215 H Lactic Acid Calcium Phosphorus Magnesium C-Reactive Protein Total Protein Albumin Triglycerides HDL Cholesterol Urine WBC (Auto) Urine Creatinine Urine Total Protein Vancomycin Trough Rheumatoid Factor Complement C4 Crossmatch 09/10/16 09/10/16 09/10/16 05:17 05:17 11:31 WBC 15.8 H RBC 3.25 L Hgb 7.3 L Hct 22.9 L MCV 71 L MCH 23 L MCHC RDW 18.4 H Plt Count Lymph % (Auto) [place] % (Auto) Lymph # [place] # Seg Neutrophils % Seg Neuts % (Manual) 91.0 H Lymphocytes % (Manual) 4.0 L Monocytes % (Manual) Eosinophils % (Manual) Basophils % (Manual) Seg Neutrophils # Seg Neutrophils # Man 14.4 H Lymphocytes # (Manual) 0.6 L Monocytes # (Manual) Eosinophils # (Manual) Fibrinogen dRVVT Confirm Interp Factor V Activity POC ABG pH POC ABG pCO2 POC ABG pO2 Sodium Potassium Chloride Carbon Dioxide 21 L BUN 93 H Creatinine 2.9 H Glucose 146 H POC Glucose 188 H Lactic Acid Calcium 8.1 L Phosphorus Magnesium C-Reactive Protein Total Protein Albumin Triglycerides HDL Cholesterol Urine WBC (Auto) Urine Creatinine Urine Total Protein Vancomycin Trough Rheumatoid Factor Complement C4 Crossmatch 09/10/16 09/10/16 09/10/16 13:17 17:20 23:32 WBC RBC Hgb Hct MCV MCH MCHC RDW Plt Count Lymph % (Auto) [place] % (Auto) Lymph # [place] # Seg Neutrophils % Seg Neuts % (Manual) Lymphocytes % (Manual) Monocytes % (Manual) Eosinophils % (Manual) Basophils % (Manual) Seg Neutrophils # Seg Neutrophils # Man Lymphocytes # (Manual) Monocytes # (Manual) Eosinophils # (Manual) Fibrinogen dRVVT Confirm Interp Factor V Activity POC ABG pH POC ABG pCO2 POC ABG pO2 Sodium Potassium Chloride Carbon Dioxide BUN Creatinine Glucose POC Glucose 199 H 186 H Lactic Acid Calcium Phosphorus Magnesium C-Reactive Protein Total Protein Albumin Triglycerides HDL Cholesterol Urine WBC (Auto) Urine Creatinine Urine Total Protein Vancomycin Trough Rheumatoid Factor Complement C4 Crossmatch See Detail 09/11/16 09/11/16 09/11/16 05:10 05:10 05:17 WBC 28.4 H RBC Hgb 9.2 L Hct 29.3 L D MCV 73 L MCH 23 L MCHC RDW 18.9 H Plt Count 452 H Lymph % (Auto) [place] % (Auto) Lymph # [place] # Seg Neutrophils % Seg Neuts % (Manual) 89.5 H Lymphocytes % (Manual) 2.0 L Monocytes % (Manual) Eosinophils % (Manual) Basophils % (Manual) Seg Neutrophils # Seg Neutrophils # Man 25.4 H Lymphocytes # (Manual) 0.6 L Monocytes # (Manual) 1.3 H Eosinophils # (Manual) Fibrinogen dRVVT Confirm Interp Factor V Activity POC ABG pH POC ABG pCO2 POC ABG pO2 Sodium 136 L Potassium Chloride Carbon Dioxide 18 L BUN 107 H Creatinine 2.6 H Glucose 187 H POC Glucose 230 H Lactic Acid Calcium 8.3 L Phosphorus Magnesium C-Reactive Protein Total Protein Albumin Triglycerides HDL Cholesterol Urine WBC (Auto) Urine Creatinine Urine Total Protein Vancomycin Trough Rheumatoid Factor Complement C4 Crossmatch 09/11/16 09/11/16 09/11/16 05:55 12:02 17:32 WBC RBC Hgb Hct MCV MCH MCHC RDW Plt Count Lymph % (Auto) [place] % (Auto) Lymph # [place] # Seg Neutrophils % Seg Neuts % (Manual) Lymphocytes % (Manual) Monocytes % (Manual) Eosinophils % (Manual) Basophils % (Manual) Seg Neutrophils # Seg Neutrophils # Man Lymphocytes # (Manual) Monocytes # (Manual) Eosinophils # (Manual) Fibrinogen dRVVT Confirm Interp Factor V Activity POC ABG pH POC ABG pCO2 33.8 L POC ABG pO2 Sodium Potassium Chloride Carbon Dioxide BUN Creatinine Glucose POC Glucose 191 H 239 H Lactic Acid Calcium Phosphorus Magnesium C-Reactive Protein Total Protein Albumin Triglycerides HDL Cholesterol Urine WBC (Auto) Urine Creatinine Urine Total Protein Vancomycin Trough Rheumatoid Factor Complement C4 Crossmatch 09/11/16 09/12/16 09/12/16 23:52 05:09 05:32 WBC RBC Hgb Hct MCV MCH MCHC RDW Plt Count Lymph % (Auto) [place] % (Auto) Lymph # [place] # Seg Neutrophils % Seg Neuts % (Manual) Lymphocytes % (Manual) Monocytes % (Manual) Eosinophils % (Manual) Basophils % (Manual) Seg Neutrophils # Seg Neutrophils # Man Lymphocytes # (Manual) Monocytes # (Manual) Eosinophils # (Manual) Fibrinogen dRVVT Confirm Interp Factor V Activity POC ABG pH POC ABG pCO2 34.6 L POC ABG pO2 Sodium Potassium Chloride Carbon Dioxide BUN Creatinine Glucose POC Glucose 265 H 184 H Lactic Acid Calcium Phosphorus Magnesium C-Reactive Protein Total Protein Albumin Triglycerides HDL Cholesterol Urine WBC (Auto) Urine Creatinine Urine Total Protein Vancomycin Trough Rheumatoid Factor Complement C4 Crossmatch 09/12/16 09/12/16 09/12/16 06:45 06:45 07:22 WBC 31.7 H RBC 3.54 L Hgb 8.3 L Hct 25.9 L MCV 73 L MCH 23 L MCHC RDW 18.9 H Plt Count Lymph % (Auto) [place] % (Auto) Lymph # [place] # Seg Neutrophils % Seg Neuts % (Manual) 88.5 H Lymphocytes % (Manual) 4.5 L Monocytes % (Manual) Eosinophils % (Manual) Basophils % (Manual) Seg Neutrophils # Seg Neutrophils # Man 28.1 H Lymphocytes # (Manual) Monocytes # (Manual) 1.0 H Eosinophils # (Manual) Fibrinogen dRVVT Confirm Interp Factor V Activity POC ABG pH POC ABG pCO2 POC ABG pO2 Sodium Potassium Chloride Carbon Dioxide 20 L BUN 115 H Creatinine 2.7 H Glucose 165 H POC Glucose Lactic Acid Calcium 8.0 L Phosphorus Magnesium C-Reactive Protein Total Protein Albumin Triglycerides 217 H HDL Cholesterol Urine WBC (Auto) Urine Creatinine Urine Total Protein Vancomycin Trough Rheumatoid Factor Complement C4 Crossmatch 09/12/16 09/12/16 09/12/16 07:22 09:59 12:21 WBC RBC Hgb Hct MCV MCH MCHC RDW Plt Count Lymph % (Auto) [place] % (Auto) Lymph # [place] # Seg Neutrophils % Seg Neuts % (Manual) Lymphocytes % (Manual) Monocytes % (Manual) Eosinophils % (Manual) Basophils % (Manual) Seg Neutrophils # Seg Neutrophils # Man Lymphocytes # (Manual) Monocytes # (Manual) Eosinophils # (Manual) Fibrinogen dRVVT Confirm Interp Positive H Factor V Activity POC ABG pH POC ABG pCO2 POC ABG pO2 Sodium Potassium Chloride Carbon Dioxide BUN Creatinine Glucose POC Glucose 224 H Lactic Acid Calcium Phosphorus Magnesium C-Reactive Protein 1.70 H Total Protein Albumin Triglycerides HDL Cholesterol Urine WBC (Auto) Urine Creatinine Urine Total Protein Vancomycin Trough Rheumatoid Factor Complement C4 Crossmatch 09/12/16 09/12/16 09/13/16 16:51 23:28 04:00 WBC 45.0 H* RBC Hgb 9.4 L Hct MCV 75 L MCH 23 L MCHC RDW 19.0 H Plt Count 470 H Lymph % (Auto) [place] % (Auto) Lymph # [place] # Seg Neutrophils % Seg Neuts % (Manual) 89.0 H Lymphocytes % (Manual) 5.0 L Monocytes % (Manual) Eosinophils % (Manual) Basophils % (Manual) Seg Neutrophils # Seg Neutrophils # Man 40.1 H Lymphocytes # (Manual) Monocytes # (Manual) Eosinophils # (Manual) Fibrinogen dRVVT Confirm Interp Factor V Activity POC ABG pH POC ABG pCO2 POC ABG pO2 Sodium Potassium Chloride Carbon Dioxide BUN Creatinine Glucose POC Glucose 169 H 150 H Lactic Acid Calcium Phosphorus Magnesium C-Reactive Protein Total Protein Albumin Triglycerides HDL Cholesterol Urine WBC (Auto) Urine Creatinine Urine Total Protein Vancomycin Trough Rheumatoid Factor Complement C4 Crossmatch 09/13/16 09/13/16 09/13/16 04:00 11:26 17:31 WBC RBC Hgb Hct MCV MCH MCHC RDW Plt Count Lymph % (Auto) [place] % (Auto) Lymph # [place] # Seg Neutrophils % Seg Neuts % (Manual) Lymphocytes % (Manual) Monocytes % (Manual) Eosinophils % (Manual) Basophils % (Manual) Seg Neutrophils # Seg Neutrophils # Man Lymphocytes # (Manual) Monocytes # (Manual) Eosinophils # (Manual) Fibrinogen dRVVT Confirm Interp Factor V Activity POC ABG pH POC ABG pCO2 POC ABG pO2 Sodium Potassium Chloride Carbon Dioxide 20 L BUN 116 H Creatinine 3.0 H Glucose 172 H POC Glucose 140 H 183 H Lactic Acid Calcium Phosphorus Magnesium C-Reactive Protein Total Protein 6.2 L Albumin 2.9 L Triglycerides HDL Cholesterol Urine WBC (Auto) Urine Creatinine Urine Total Protein Vancomycin Trough Rheumatoid Factor Complement C4 Crossmatch 09/13/16 09/14/16 09/14/16 23:23 04:06 04:07 WBC 29.4 H RBC Hgb 8.9 L Hct 27.3 L MCV 75 L MCH 24 L MCHC RDW 19.1 H Plt Count Lymph % (Auto) [place] % (Auto) Lymph # [place] # Seg Neutrophils % Seg Neuts % (Manual) 84.0 H Lymphocytes % (Manual) 6.0 L Monocytes % (Manual) 9.0 H Eosinophils % (Manual) Basophils % (Manual) Seg Neutrophils # Seg Neutrophils # Man 24.7 H Lymphocytes # (Manual) Monocytes # (Manual) 2.6 H Eosinophils # (Manual) Fibrinogen dRVVT Confirm Interp Factor V Activity POC ABG pH 7.342 L POC ABG pCO2 POC ABG pO2 116 H Sodium Potassium Chloride Carbon Dioxide BUN Creatinine Glucose POC Glucose 154 H Lactic Acid Calcium Phosphorus Magnesium C-Reactive Protein Total Protein Albumin Triglycerides HDL Cholesterol Urine WBC (Auto) Urine Creatinine Urine Total Protein Vancomycin Trough Rheumatoid Factor Complement C4 Crossmatch 09/14/16 09/14/16 09/14/16 04:07 05:29 12:19 WBC RBC Hgb Hct MCV MCH MCHC RDW Plt Count Lymph % (Auto) [place] % (Auto) Lymph # [place] # Seg Neutrophils % Seg Neuts % (Manual) Lymphocytes % (Manual) Monocytes % (Manual) Eosinophils % (Manual) Basophils % (Manual) Seg Neutrophils # Seg Neutrophils # Man Lymphocytes # (Manual) Monocytes # (Manual) Eosinophils # (Manual) Fibrinogen dRVVT Confirm Interp Factor V Activity POC ABG pH POC ABG pCO2 POC ABG pO2 Sodium 136 L Potassium Chloride Carbon Dioxide 18 L BUN 121 H Creatinine 2.8 H Glucose 214 H POC Glucose 239 H 181 H Lactic Acid Calcium Phosphorus Magnesium C-Reactive Protein Total Protein Albumin Triglycerides HDL Cholesterol Urine WBC (Auto) Urine Creatinine Urine Total Protein Vancomycin Trough Rheumatoid Factor Complement C4 Crossmatch 09/14/16 09/14/16 09/15/16 18:12 23:37 05:00 WBC 26.1 H RBC 3.05 L Hgb 7.2 L Hct 22.9 L MCV 75 L MCH 24 L MCHC RDW 19.0 H Plt Count Lymph % (Auto) [place] % (Auto) Lymph # [place] # Seg Neutrophils % Seg Neuts % (Manual) Lymphocytes % (Manual) Monocytes % (Manual) Eosinophils % (Manual) Basophils % (Manual) Seg Neutrophils # Seg Neutrophils # Man Lymphocytes # (Manual) Monocytes # (Manual) Eosinophils # (Manual) Fibrinogen dRVVT Confirm Interp Factor V Activity POC ABG pH POC ABG pCO2 POC ABG pO2 Sodium Potassium Chloride Carbon Dioxide BUN Creatinine Glucose POC Glucose 266 H 154 H Lactic Acid Calcium Phosphorus Magnesium C-Reactive Protein Total Protein Albumin Triglycerides HDL Cholesterol Urine WBC (Auto) Urine Creatinine Urine Total Protein Vancomycin Trough Rheumatoid Factor Complement C4 Crossmatch 09/15/16 09/15/16 09/15/16 05:00 05:17 12:45 WBC RBC Hgb Hct MCV MCH MCHC RDW Plt Count Lymph % (Auto) [place] % (Auto) Lymph # [place] # Seg Neutrophils % Seg Neuts % (Manual) Lymphocytes % (Manual) Monocytes % (Manual) Eosinophils % (Manual) Basophils % (Manual) Seg Neutrophils # Seg Neutrophils # Man Lymphocytes # (Manual) Monocytes # (Manual) Eosinophils # (Manual) Fibrinogen dRVVT Confirm Interp Factor V Activity POC ABG pH POC ABG pCO2 POC ABG pO2 Sodium Potassium 5.2 H Chloride Carbon Dioxide 18 L BUN 139 H Creatinine 3.7 H Glucose 227 H POC Glucose 226 H 244 H Lactic Acid Calcium 8.3 L Phosphorus Magnesium C-Reactive Protein Total Protein Albumin Triglycerides HDL Cholesterol Urine WBC (Auto) Urine Creatinine Urine Total Protein Vancomycin Trough Rheumatoid Factor Complement C4 Crossmatch 09/15/16 09/15/16 09/15/16 14:32 17:33 23:35 WBC RBC Hgb Hct MCV MCH MCHC RDW Plt Count Lymph % (Auto) [place] % (Auto) Lymph # [place] # Seg Neutrophils % Seg Neuts % (Manual) Lymphocytes % (Manual) Monocytes % (Manual) Eosinophils % (Manual) Basophils % (Manual) Seg Neutrophils # Seg Neutrophils # Man Lymphocytes # (Manual) Monocytes # (Manual) Eosinophils # (Manual) Fibrinogen dRVVT Confirm Interp Factor V Activity POC ABG pH POC ABG pCO2 27.7 L POC ABG pO2 120 H Sodium Potassium Chloride Carbon Dioxide BUN Creatinine Glucose POC Glucose 232 H 167 H Lactic Acid Calcium Phosphorus Magnesium C-Reactive Protein Total Protein Albumin Triglycerides HDL Cholesterol Urine WBC (Auto) Urine Creatinine Urine Total Protein Vancomycin Trough Rheumatoid Factor Complement C4 Crossmatch 09/16/16 09/16/16 09/16/16 03:58 10:27 10:27 WBC 19.0 H RBC 2.77 L Hgb 6.5 L Hct 20.9 L MCV 76 L MCH 23 L MCHC RDW 19.3 H Plt Count Lymph % (Auto) 11.0 L [place] % (Auto) Lymph # [place] # 1.1 H Seg Neutrophils % 82.5 H Seg Neuts % (Manual) Lymphocytes % (Manual) Monocytes % (Manual) Eosinophils % (Manual) Basophils % (Manual) Seg Neutrophils # 15.7 H Seg Neutrophils # Man Lymphocytes # (Manual) Monocytes # (Manual) Eosinophils # (Manual) Fibrinogen dRVVT Confirm Interp Factor V Activity POC ABG pH POC ABG pCO2 POC ABG pO2 Sodium Potassium Chloride 109.3 H Carbon Dioxide 18 L BUN 139 H Creatinine 4.1 H Glucose 144 H POC Glucose 146 H Lactic Acid Calcium 8.1 L Phosphorus Magnesium C-Reactive Protein Total Protein Albumin Triglycerides HDL Cholesterol Urine WBC (Auto) Urine Creatinine Urine Total Protein Vancomycin Trough Rheumatoid Factor Complement C4 Crossmatch 09/16/16 09/16/16 09/16/16 12:04 12:10 13:55 WBC RBC Hgb Hct MCV MCH MCHC RDW Plt Count Lymph % (Auto) [place] % (Auto) Lymph # [place] # Seg Neutrophils % Seg Neuts % (Manual) Lymphocytes % (Manual) Monocytes % (Manual) Eosinophils % (Manual) Basophils % (Manual) Seg Neutrophils # Seg Neutrophils # Man Lymphocytes # (Manual) Monocytes # (Manual) Eosinophils # (Manual) Fibrinogen dRVVT Confirm Interp Factor V Activity POC ABG pH POC ABG pCO2 32.9 L POC ABG pO2 Sodium Potassium Chloride Carbon Dioxide BUN Creatinine Glucose POC Glucose 185 H Lactic Acid Calcium Phosphorus Magnesium C-Reactive Protein Total Protein Albumin Triglycerides HDL Cholesterol Urine WBC (Auto) Urine Creatinine Urine Total Protein Vancomycin Trough Rheumatoid Factor Complement C4 Crossmatch See Detail 09/16/16 09/16/16 09/16/16 17:55 19:19 23:48 WBC RBC Hgb Hct MCV MCH MCHC RDW Plt Count Lymph % (Auto) [place] % (Auto) Lymph # [place] # Seg Neutrophils % Seg Neuts % (Manual) Lymphocytes % (Manual) Monocytes % (Manual) Eosinophils % (Manual) Basophils % (Manual) Seg Neutrophils # Seg Neutrophils # Man Lymphocytes # (Manual) Monocytes # (Manual) Eosinophils # (Manual) Fibrinogen dRVVT Confirm Interp Factor V Activity POC ABG pH POC ABG pCO2 POC ABG pO2 Sodium Potassium Chloride Carbon Dioxide BUN Creatinine Glucose POC Glucose 222 H 107 H Lactic Acid Calcium Phosphorus Magnesium C-Reactive Protein Total Protein Albumin Triglycerides HDL Cholesterol Urine WBC (Auto) Urine Creatinine 47.4 H Urine Total Protein 16 H Vancomycin Trough Rheumatoid Factor Complement C4 Crossmatch 09/17/16 09/17/16 09/17/16 03:45 03:45 04:55 WBC 19.6 H RBC 3.41 L Hgb 8.5 L Hct 26.7 L MCV 78 L MCH 25 L MCHC RDW 19.9 H Plt Count Lymph % (Auto) 9.3 L [place] % (Auto) Lymph # [place] # 1.2 H Seg Neutrophils % 83.9 H Seg Neuts % (Manual) Lymphocytes % (Manual) Monocytes % (Manual) Eosinophils % (Manual) Basophils % (Manual) Seg Neutrophils # 16.4 H Seg Neutrophils # Man Lymphocytes # (Manual) Monocytes # (Manual) Eosinophils # (Manual) Fibrinogen dRVVT Confirm Interp Factor V Activity POC ABG pH POC ABG pCO2 POC ABG pO2 Sodium 146 H Potassium 5.1 H Chloride 110.9 H Carbon Dioxide 16 L BUN 146 H Creatinine 4.0 H Glucose 108 H POC Glucose 133 H Lactic Acid Calcium Phosphorus Magnesium 3.00 H C-Reactive Protein Total Protein Albumin Triglycerides HDL Cholesterol Urine WBC (Auto) Urine Creatinine Urine Total Protein Vancomycin Trough Rheumatoid Factor Complement C4 Crossmatch 09/17/16 09/17/16 09/17/16 11:15 17:33 23:47 WBC RBC Hgb Hct MCV MCH MCHC RDW Plt Count Lymph % (Auto) [place] % (Auto) Lymph # [place] # Seg Neutrophils % Seg Neuts % (Manual) Lymphocytes % (Manual) Monocytes % (Manual) Eosinophils % (Manual) Basophils % (Manual) Seg Neutrophils # Seg Neutrophils # Man Lymphocytes # (Manual) Monocytes # (Manual) Eosinophils # (Manual) Fibrinogen dRVVT Confirm Interp Factor V Activity POC ABG pH POC ABG pCO2 POC ABG pO2 Sodium Potassium Chloride Carbon Dioxide BUN Creatinine Glucose POC Glucose 176 H 246 H 148 H Lactic Acid Calcium Phosphorus Magnesium C-Reactive Protein Total Protein Albumin Triglycerides HDL Cholesterol Urine WBC (Auto) Urine Creatinine Urine Total Protein Vancomycin Trough Rheumatoid Factor Complement C4 Crossmatch 09/18/16 09/18/16 09/18/16 05:33 08:31 08:31 WBC 18.0 H RBC 3.17 L Hgb 9.0 L Hct 25.7 L MCV MCH MCHC 35 H RDW 20.4 H Plt Count Lymph % (Auto) [place] % (Auto) Lymph # [place] # Seg Neutrophils % Seg Neuts % (Manual) Lymphocytes % (Manual) Monocytes % (Manual) Eosinophils % (Manual) Basophils % (Manual) Seg Neutrophils # Seg Neutrophils # Man Lymphocytes # (Manual) Monocytes # (Manual) Eosinophils # (Manual) Fibrinogen dRVVT Confirm Interp Factor V Activity POC ABG pH POC ABG pCO2 POC ABG pO2 Sodium Potassium Chloride Carbon Dioxide 15 L BUN 124 H Creatinine 3.8 H Glucose POC Glucose 120 H Lactic Acid Calcium 8.1 L Phosphorus Magnesium C-Reactive Protein Total Protein Albumin Triglycerides HDL Cholesterol Urine WBC (Auto) Urine Creatinine Urine Total Protein Vancomycin Trough Rheumatoid Factor Complement C4 Crossmatch 09/18/16 09/18/16 09/18/16 12:03 15:34 17:50 WBC RBC Hgb Hct MCV MCH MCHC RDW Plt Count Lymph % (Auto) [place] % (Auto) Lymph # [place] # Seg Neutrophils % Seg Neuts % (Manual) Lymphocytes % (Manual) Monocytes % (Manual) Eosinophils % (Manual) Basophils % (Manual) Seg Neutrophils # Seg Neutrophils # Man Lymphocytes # (Manual) Monocytes # (Manual) Eosinophils # (Manual) Fibrinogen dRVVT Confirm Interp Factor V Activity POC ABG pH POC ABG pCO2 25.7 L POC ABG pO2 66 L Sodium Potassium Chloride Carbon Dioxide BUN Creatinine Glucose POC Glucose 156 H 220 H Lactic Acid Calcium Phosphorus Magnesium C-Reactive Protein Total Protein Albumin Triglycerides HDL Cholesterol Urine WBC (Auto) Urine Creatinine Urine Total Protein Vancomycin Trough Rheumatoid Factor Complement C4 Crossmatch 09/19/16 09/19/16 09/19/16 06:21 09:50 09:50 WBC 17.1 H RBC 3.49 L Hgb 9.0 L Hct 28.1 L MCV MCH 26 L MCHC RDW 20.8 H Plt Count Lymph % (Auto) 11.5 L [place] % (Auto) 7.5 H Lymph # [place] # 1.3 H Seg Neutrophils % 79.8 H Seg Neuts % (Manual) Lymphocytes % (Manual) Monocytes % (Manual) Eosinophils % (Manual) Basophils % (Manual) Seg Neutrophils # 13.7 H Seg Neutrophils # Man Lymphocytes # (Manual) Monocytes # (Manual) Eosinophils # (Manual) Fibrinogen dRVVT Confirm Interp Factor V Activity POC ABG pH POC ABG pCO2 POC ABG pO2 Sodium Potassium Chloride 108.6 H Carbon Dioxide 15 L BUN 125 H Creatinine 4.1 H Glucose 124 H POC Glucose 119 H Lactic Acid Calcium Phosphorus Magnesium C-Reactive Protein Total Protein Albumin Triglycerides HDL Cholesterol Urine WBC (Auto) Urine Creatinine Urine Total Protein Vancomycin Trough Rheumatoid Factor Complement C4 Crossmatch 09/19/16 09/19/16 09/19/16 11:25 17:53 23:36 WBC RBC Hgb Hct MCV MCH MCHC RDW Plt Count Lymph % (Auto) [place] % (Auto) Lymph # [place] # Seg Neutrophils % Seg Neuts % (Manual) Lymphocytes % (Manual) Monocytes % (Manual) Eosinophils % (Manual) Basophils % (Manual) Seg Neutrophils # Seg Neutrophils # Man Lymphocytes # (Manual) Monocytes # (Manual) Eosinophils # (Manual) Fibrinogen dRVVT Confirm Interp Factor V Activity POC ABG pH POC ABG pCO2 POC ABG pO2 Sodium Potassium Chloride Carbon Dioxide BUN Creatinine Glucose POC Glucose 160 H 245 H 121 H Lactic Acid Calcium Phosphorus Magnesium C-Reactive Protein Total Protein Albumin Triglycerides HDL Cholesterol Urine WBC (Auto) Urine Creatinine Urine Total Protein Vancomycin Trough Rheumatoid Factor Complement C4 Crossmatch 09/20/16 09/20/16 09/20/16 04:10 04:10 04:10 WBC 17.0 H RBC 3.21 L Hgb 8.2 L Hct 25.5 L MCV MCH 26 L MCHC RDW 20.9 H Plt Count Lymph % (Auto) [place] % (Auto) Lymph # [place] # Seg Neutrophils % Seg Neuts % (Manual) Lymphocytes % (Manual) Monocytes % (Manual) Eosinophils % (Manual) Basophils % (Manual) Seg Neutrophils # Seg Neutrophils # Man Lymphocytes # (Manual) Monocytes # (Manual) Eosinophils # (Manual) Fibrinogen dRVVT Confirm Interp Factor V Activity POC ABG pH POC ABG pCO2 POC ABG pO2 Sodium Potassium Chloride 111.0 H Carbon Dioxide 16 L BUN 129 H Creatinine 3.7 H Glucose 115 H POC Glucose Lactic Acid Calcium 8.2 L Phosphorus Magnesium C-Reactive Protein Total Protein Albumin Triglycerides 243 H HDL Cholesterol Urine WBC (Auto) Urine Creatinine Urine Total Protein Vancomycin Trough Rheumatoid Factor Complement C4 Crossmatch 09/20/16 09/20/16 09/20/16 05:40 11:52 16:50 WBC RBC Hgb Hct MCV MCH MCHC RDW Plt Count Lymph % (Auto) [place] % (Auto) Lymph # [place] # Seg Neutrophils % Seg Neuts % (Manual) Lymphocytes % (Manual) Monocytes % (Manual) Eosinophils % (Manual) Basophils % (Manual) Seg Neutrophils # Seg Neutrophils # Man Lymphocytes # (Manual) Monocytes # (Manual) Eosinophils # (Manual) Fibrinogen dRVVT Confirm Interp Factor V Activity POC ABG pH POC ABG pCO2 POC ABG pO2 Sodium Potassium Chloride Carbon Dioxide BUN Creatinine Glucose POC Glucose 131 H 183 H 236 H Lactic Acid Calcium Phosphorus Magnesium C-Reactive Protein Total Protein Albumin Triglycerides HDL Cholesterol Urine WBC (Auto) Urine Creatinine Urine Total Protein Vancomycin Trough Rheumatoid Factor Complement C4 Crossmatch 09/20/16 09/21/16 09/21/16 23:51 03:30 04:44 WBC RBC Hgb Hct MCV MCH MCHC RDW Plt Count Lymph % (Auto) [place] % (Auto) Lymph # [place] # Seg Neutrophils % Seg Neuts % (Manual) Lymphocytes % (Manual) Monocytes % (Manual) Eosinophils % (Manual) Basophils % (Manual) Seg Neutrophils # Seg Neutrophils # Man Lymphocytes # (Manual) Monocytes # (Manual) Eosinophils # (Manual) Fibrinogen dRVVT Confirm Interp Factor V Activity POC ABG pH POC ABG pCO2 POC ABG pO2 Sodium Potassium Chloride Carbon Dioxide BUN Creatinine Glucose POC Glucose 114 H 141 H Lactic Acid Calcium Phosphorus Magnesium 2.70 H C-Reactive Protein Total Protein Albumin Triglycerides HDL Cholesterol Urine WBC (Auto) Urine Creatinine Urine Total Protein Vancomycin Trough Rheumatoid Factor Complement C4 Crossmatch 09/21/16 09/21/16 09/21/16 07:45 07:45 10:01 WBC 13.8 H RBC 2.94 L Hgb 7.5 L Hct 23.5 L MCV MCH 26 L MCHC RDW 21.2 H Plt Count Lymph % (Auto) 6.9 L [place] % (Auto) 9.4 H Lymph # 0.9 L [place] # 1.3 H Seg Neutrophils % 83.2 H Seg Neuts % (Manual) Lymphocytes % (Manual) Monocytes % (Manual) Eosinophils % (Manual) Basophils % (Manual) Seg Neutrophils # 11.5 H Seg Neutrophils # Man Lymphocytes # (Manual) Monocytes # (Manual) Eosinophils # (Manual) Fibrinogen dRVVT Confirm Interp Factor V Activity POC ABG pH 7.308 L POC ABG pCO2 31.9 L POC ABG pO2 148 H Sodium 147 H Potassium Chloride 114.2 H Carbon Dioxide 15 L BUN 120 H Creatinine 3.9 H Glucose 156 H POC Glucose Lactic Acid Calcium 8.2 L Phosphorus Magnesium C-Reactive Protein Total Protein Albumin Triglycerides HDL Cholesterol Urine WBC (Auto) Urine Creatinine Urine Total Protein Vancomycin Trough Rheumatoid Factor Complement C4 Crossmatch 09/21/16 09/21/16 09/21/16 12:00 12:03 13:00 WBC RBC Hgb Hct MCV MCH MCHC RDW Plt Count Lymph % (Auto) [place] % (Auto) Lymph # [place] # Seg Neutrophils % Seg Neuts % (Manual) Lymphocytes % (Manual) Monocytes % (Manual) Eosinophils % (Manual) Basophils % (Manual) Seg Neutrophils # Seg Neutrophils # Man Lymphocytes # (Manual) Monocytes # (Manual) Eosinophils # (Manual) Fibrinogen dRVVT Confirm Interp Factor V Activity POC ABG pH POC ABG pCO2 POC ABG pO2 Sodium Potassium Chloride Carbon Dioxide BUN Creatinine Glucose POC Glucose 163 H Lactic Acid Calcium Phosphorus Magnesium C-Reactive Protein Total Protein Albumin Triglycerides HDL Cholesterol Urine WBC (Auto) Urine Creatinine 54.8 H Urine Total Protein Vancomycin Trough 2.3 L Rheumatoid Factor Complement C4 Crossmatch 09/21/16 09/21/16 09/22/16 16:51 23:17 06:27 WBC RBC Hgb Hct MCV MCH MCHC RDW Plt Count Lymph % (Auto) [place] % (Auto) Lymph # [place] # Seg Neutrophils % Seg Neuts % (Manual) Lymphocytes % (Manual) Monocytes % (Manual) Eosinophils % (Manual) Basophils % (Manual) Seg Neutrophils # Seg Neutrophils # Man Lymphocytes # (Manual) Monocytes # (Manual) Eosinophils # (Manual) Fibrinogen dRVVT Confirm Interp Factor V Activity POC ABG pH POC ABG pCO2 POC ABG pO2 Sodium Potassium Chloride Carbon Dioxide BUN Creatinine Glucose POC Glucose 206 H 114 H 115 H Lactic Acid Calcium Phosphorus Magnesium C-Reactive Protein Total Protein Albumin Triglycerides HDL Cholesterol Urine WBC (Auto) Urine Creatinine Urine Total Protein Vancomycin Trough Rheumatoid Factor Complement C4 Crossmatch 09/22/16 09/22/16 09/22/16 07:50 07:50 12:00 WBC 17.8 H RBC 3.04 L Hgb 8.0 L Hct 24.7 L MCV MCH 26 L MCHC RDW 21.6 H Plt Count Lymph % (Auto) [place] % (Auto) Lymph # [place] # Seg Neutrophils % Seg Neuts % (Manual) Lymphocytes % (Manual) Monocytes % (Manual) Eosinophils % (Manual) Basophils % (Manual) Seg Neutrophils # Seg Neutrophils # Man Lymphocytes # (Manual) Monocytes # (Manual) Eosinophils # (Manual) Fibrinogen dRVVT Confirm Interp Factor V Activity POC ABG pH POC ABG pCO2 POC ABG pO2 Sodium 150 H Potassium Chloride 118.2 H Carbon Dioxide 14 L BUN 111 H Creatinine 3.7 H Glucose 157 H POC Glucose 183 H Lactic Acid Calcium Phosphorus Magnesium C-Reactive Protein Total Protein Albumin Triglycerides HDL Cholesterol Urine WBC (Auto) Urine Creatinine Urine Total Protein Vancomycin Trough Rheumatoid Factor Complement C4 Crossmatch 09/22/16 09/22/16 09/23/16 17:29 23:10 05:00 WBC 19.2 H RBC 3.13 L Hgb 8.0 L Hct 25.2 L MCV MCH 26 L MCHC RDW 22.1 H Plt Count Lymph % (Auto) [place] % (Auto) Lymph # [place] # Seg Neutrophils % Seg Neuts % (Manual) 92.0 H Lymphocytes % (Manual) 3.0 L Monocytes % (Manual) Eosinophils % (Manual) Basophils % (Manual) Seg Neutrophils # Seg Neutrophils # Man 17.7 H Lymphocytes # (Manual) 0.6 L Monocytes # (Manual) Eosinophils # (Manual) Fibrinogen dRVVT Confirm Interp Factor V Activity POC ABG pH POC ABG pCO2 POC ABG pO2 Sodium Potassium Chloride Carbon Dioxide BUN Creatinine Glucose POC Glucose 197 H 169 H Lactic Acid Calcium Phosphorus Magnesium C-Reactive Protein Total Protein Albumin Triglycerides HDL Cholesterol Urine WBC (Auto) Urine Creatinine Urine Total Protein Vancomycin Trough Rheumatoid Factor Complement C4 Crossmatch 09/23/16 09/23/16 09/23/16 05:00 05:00 05:10 WBC RBC Hgb Hct MCV MCH MCHC RDW Plt Count Lymph % (Auto) [place] % (Auto) Lymph # [place] # Seg Neutrophils % Seg Neuts % (Manual) Lymphocytes % (Manual) Monocytes % (Manual) Eosinophils % (Manual) Basophils % (Manual) Seg Neutrophils # Seg Neutrophils # Man Lymphocytes # (Manual) Monocytes # (Manual) Eosinophils # (Manual) Fibrinogen dRVVT Confirm Interp Factor V Activity POC ABG pH POC ABG pCO2 POC ABG pO2 Sodium 147 H Potassium 3.2 L Chloride 115.7 H Carbon Dioxide 13 L BUN 111 H Creatinine 3.8 H Glucose 194 H POC Glucose 188 H Lactic Acid Calcium 7.3 L D Phosphorus Magnesium C-Reactive Protein 3.20 H Total Protein Albumin Triglycerides HDL Cholesterol Urine WBC (Auto) Urine Creatinine Urine Total Protein Vancomycin Trough Rheumatoid Factor Complement C4 Crossmatch 09/23/16 09/23/16 09/23/16 11:37 12:29 18:01 WBC RBC Hgb Hct MCV MCH MCHC RDW Plt Count Lymph % (Auto) [place] % (Auto) Lymph # [place] # Seg Neutrophils % Seg Neuts % (Manual) Lymphocytes % (Manual) Monocytes % (Manual) Eosinophils % (Manual) Basophils % (Manual) Seg Neutrophils # Seg Neutrophils # Man Lymphocytes # (Manual) Monocytes # (Manual) Eosinophils # (Manual) Fibrinogen dRVVT Confirm Interp Factor V Activity POC ABG pH POC ABG pCO2 18.9 L POC ABG pO2 143 H Sodium Potassium Chloride Carbon Dioxide BUN Creatinine Glucose POC Glucose 153 H 108 H Lactic Acid Calcium Phosphorus Magnesium C-Reactive Protein Total Protein Albumin Triglycerides HDL Cholesterol Urine WBC (Auto) Urine Creatinine Urine Total Protein Vancomycin Trough Rheumatoid Factor Complement C4 Crossmatch 09/23/16 09/23/16 09/24/16 21:19 23:43 05:16 WBC RBC Hgb Hct MCV MCH MCHC RDW Plt Count Lymph % (Auto) [place] % (Auto) Lymph # [place] # Seg Neutrophils % Seg Neuts % (Manual) Lymphocytes % (Manual) Monocytes % (Manual) Eosinophils % (Manual) Basophils % (Manual) Seg Neutrophils # Seg Neutrophils # Man Lymphocytes # (Manual) Monocytes # (Manual) Eosinophils # (Manual) Fibrinogen dRVVT Confirm Interp Factor V Activity POC ABG pH POC ABG pCO2 17.3 L POC ABG pO2 112 H Sodium Potassium Chloride Carbon Dioxide BUN Creatinine Glucose POC Glucose 143 H 164 H Lactic Acid Calcium Phosphorus Magnesium C-Reactive Protein Total Protein Albumin Triglycerides HDL Cholesterol Urine WBC (Auto) Urine Creatinine Urine Total Protein Vancomycin Trough Rheumatoid Factor Complement C4 Crossmatch 09/24/16 09/24/16 09/24/16 05:21 11:58 17:06 WBC RBC Hgb Hct MCV MCH MCHC RDW Plt Count Lymph % (Auto) [place] % (Auto) Lymph # [place] # Seg Neutrophils % Seg Neuts % (Manual) Lymphocytes % (Manual) Monocytes % (Manual) Eosinophils % (Manual) Basophils % (Manual) Seg Neutrophils # Seg Neutrophils # Man Lymphocytes # (Manual) Monocytes # (Manual) Eosinophils # (Manual) Fibrinogen dRVVT Confirm Interp Factor V Activity POC ABG pH POC ABG pCO2 POC ABG pO2 Sodium Potassium Chloride Carbon Dioxide 10 L BUN 103 H Creatinine 4.3 H Glucose 163 H POC Glucose 173 H 167 H Lactic Acid Calcium 6.5 L Phosphorus Magnesium C-Reactive Protein Total Protein Albumin Triglycerides HDL Cholesterol Urine WBC (Auto) Urine Creatinine Urine Total Protein Vancomycin Trough Rheumatoid Factor Complement C4 Crossmatch 09/24/16 09/24/16 09/24/16 20:15 21:02 23:48 WBC RBC Hgb Hct MCV MCH MCHC RDW Plt Count Lymph % (Auto) [place] % (Auto) Lymph # [place] # Seg Neutrophils % Seg Neuts % (Manual) Lymphocytes % (Manual) Monocytes % (Manual) Eosinophils % (Manual) Basophils % (Manual) Seg Neutrophils # Seg Neutrophils # Man Lymphocytes # (Manual) Monocytes # (Manual) Eosinophils # (Manual) Fibrinogen dRVVT Confirm Interp Factor V Activity POC ABG pH 7.288 L POC ABG pCO2 30.2 L 21.5 L POC ABG pO2 32 L 39 L Sodium Potassium Chloride Carbon Dioxide BUN Creatinine Glucose POC Glucose 109 H Lactic Acid Calcium Phosphorus Magnesium C-Reactive Protein Total Protein Albumin Triglycerides HDL Cholesterol Urine WBC (Auto) Urine Creatinine Urine Total Protein Vancomycin Trough Rheumatoid Factor Complement C4 Crossmatch 09/25/16 09/25/16 09/25/16 04:20 04:20 04:20 WBC RBC 2.58 L Hgb 7.0 L Hct 21.0 L MCV MCH 27 L MCHC RDW 23.8 H Plt Count Lymph % (Auto) [place] % (Auto) Lymph # [place] # Seg Neutrophils % Seg Neuts % (Manual) Lymphocytes % (Manual) 12.0 L Monocytes % (Manual) Eosinophils % (Manual) 7.0 H Basophils % (Manual) 2.0 H Seg Neutrophils # Seg Neutrophils # Man Lymphocytes # (Manual) 0.9 L Monocytes # (Manual) Eosinophils # (Manual) 0.5 H Fibrinogen dRVVT Confirm Interp Factor V Activity POC ABG pH POC ABG pCO2 POC ABG pO2 Sodium Potassium Chloride Carbon Dioxide 15 L BUN 72 H Creatinine 3.8 H Glucose POC Glucose Lactic Acid Calcium 6.0 L Phosphorus 4.60 H Magnesium 1.60 L C-Reactive Protein Total Protein Albumin Triglycerides HDL Cholesterol Urine WBC (Auto) Urine Creatinine Urine Total Protein Vancomycin Trough Rheumatoid Factor Complement C4 Crossmatch 09/25/16 09/25/16 09/25/16 04:57 08:02 10:30 WBC RBC Hgb Hct MCV MCH MCHC RDW Plt Count Lymph % (Auto) [place] % (Auto) Lymph # [place] # Seg Neutrophils % Seg Neuts % (Manual) Lymphocytes % (Manual) Monocytes % (Manual) Eosinophils % (Manual) Basophils % (Manual) Seg Neutrophils # Seg Neutrophils # Man Lymphocytes # (Manual) Monocytes # (Manual) Eosinophils # (Manual) Fibrinogen dRVVT Confirm Interp Factor V Activity POC ABG pH POC ABG pCO2 24.7 L POC ABG pO2 152 H Sodium Potassium Chloride Carbon Dioxide BUN Creatinine Glucose POC Glucose 113 H Lactic Acid Calcium Phosphorus Magnesium C-Reactive Protein Total Protein Albumin Triglycerides HDL Cholesterol Urine WBC (Auto) Urine Creatinine Urine Total Protein Vancomycin Trough Rheumatoid Factor Complement C4 Crossmatch See Detail 09/25/16 09/25/16 09/25/16 12:05 17:44 23:47 WBC RBC Hgb Hct MCV MCH MCHC RDW Plt Count Lymph % (Auto) [place] % (Auto) Lymph # [place] # Seg Neutrophils % Seg Neuts % (Manual) Lymphocytes % (Manual) Monocytes % (Manual) Eosinophils % (Manual) Basophils % (Manual) Seg Neutrophils # Seg Neutrophils # Man Lymphocytes # (Manual) Monocytes # (Manual) Eosinophils # (Manual) Fibrinogen dRVVT Confirm Interp Factor V Activity POC ABG pH POC ABG pCO2 POC ABG pO2 Sodium Potassium Chloride Carbon Dioxide BUN Creatinine Glucose POC Glucose 117 H 119 H 150 H Lactic Acid Calcium Phosphorus Magnesium C-Reactive Protein Total Protein Albumin Triglycerides HDL Cholesterol Urine WBC (Auto) Urine Creatinine Urine Total Protein Vancomycin Trough Rheumatoid Factor Complement C4 Crossmatch 09/26/16 09/26/16 09/26/16 04:25 04:25 04:25 WBC RBC 2.65 L Hgb 7.4 L Hct 21.6 L MCV MCH MCHC RDW 22.5 H Plt Count Lymph % (Auto) [place] % (Auto) Lymph # [place] # Seg Neutrophils % Seg Neuts % (Manual) Lymphocytes % (Manual) 6.0 L Monocytes % (Manual) Eosinophils % (Manual) 11.0 H Basophils % (Manual) Seg Neutrophils # Seg Neutrophils # Man Lymphocytes # (Manual) 0.4 L Monocytes # (Manual) Eosinophils # (Manual) 0.6 H Fibrinogen dRVVT Confirm Interp Factor V Activity POC ABG pH POC ABG pCO2 POC ABG pO2 Sodium Potassium Chloride 97.0 L Carbon Dioxide 19 L BUN 43 H Creatinine 2.6 H Glucose 130 H POC Glucose Lactic Acid 4.40 H* Calcium 6.7 L Phosphorus Magnesium C-Reactive Protein Total Protein Albumin Triglycerides HDL Cholesterol Urine WBC (Auto) Urine Creatinine Urine Total Protein Vancomycin Trough Rheumatoid Factor Complement C4 Crossmatch 09/26/16 09/26/16 09/26/16 05:20 11:44 12:12 WBC RBC Hgb Hct MCV MCH MCHC RDW Plt Count Lymph % (Auto) [place] % (Auto) Lymph # [place] # Seg Neutrophils % Seg Neuts % (Manual) Lymphocytes % (Manual) Monocytes % (Manual) Eosinophils % (Manual) Basophils % (Manual) Seg Neutrophils # Seg Neutrophils # Man Lymphocytes # (Manual) Monocytes # (Manual) Eosinophils # (Manual) Fibrinogen dRVVT Confirm Interp Factor V Activity POC ABG pH POC ABG pCO2 27.0 L POC ABG pO2 69 L Sodium Potassium Chloride Carbon Dioxide BUN Creatinine Glucose POC Glucose 121 H 128 H Lactic Acid Calcium Phosphorus Magnesium C-Reactive Protein Total Protein Albumin Triglycerides HDL Cholesterol Urine WBC (Auto) Urine Creatinine Urine Total Protein Vancomycin Trough Rheumatoid Factor Complement C4 Crossmatch 09/26/16 09/26/16 09/27/16 18:31 23:40 08:20 WBC RBC Hgb Hct MCV MCH MCHC RDW Plt Count Lymph % (Auto) [place] % (Auto) Lymph # [place] # Seg Neutrophils % Seg Neuts % (Manual) Lymphocytes % (Manual) Monocytes % (Manual) Eosinophils % (Manual) Basophils % (Manual) Seg Neutrophils # Seg Neutrophils # Man Lymphocytes # (Manual) Monocytes # (Manual) Eosinophils # (Manual) Fibrinogen dRVVT Confirm Interp Factor V Activity POC ABG pH POC ABG pCO2 POC ABG pO2 Sodium Potassium Chloride Carbon Dioxide BUN Creatinine Glucose POC Glucose 120 H 133 H Lactic Acid 4.10 H* Calcium Phosphorus Magnesium C-Reactive Protein Total Protein Albumin Triglycerides HDL Cholesterol Urine WBC (Auto) Urine Creatinine Urine Total Protein Vancomycin Trough Rheumatoid Factor Complement C4 Crossmatch 09/27/16 09/27/16 09/27/16 11:23 15:00 18:15 WBC RBC Hgb Hct MCV MCH MCHC RDW Plt Count Lymph % (Auto) [place] % (Auto) Lymph # [place] # Seg Neutrophils % Seg Neuts % (Manual) Lymphocytes % (Manual) Monocytes % (Manual) Eosinophils % (Manual) Basophils % (Manual) Seg Neutrophils # Seg Neutrophils # Man Lymphocytes # (Manual) Monocytes # (Manual) Eosinophils # (Manual) Fibrinogen dRVVT Confirm Interp Factor V Activity POC ABG pH 7.459 H POC ABG pCO2 27.1 L POC ABG pO2 140 H Sodium Potassium Chloride Carbon Dioxide BUN Creatinine Glucose POC Glucose 114 H 127 H Lactic Acid Calcium Phosphorus Magnesium C-Reactive Protein Total Protein Albumin Triglycerides HDL Cholesterol Urine WBC (Auto) Urine Creatinine Urine Total Protein Vancomycin Trough Rheumatoid Factor Complement C4 Crossmatch 09/27/16 09/27/16 09/28/16 Unknown Unknown 03:45 WBC RBC 2.49 L Hgb 6.8 L Hct 20.7 L MCV MCH 27 L MCHC RDW 22.1 H Plt Count Lymph % (Auto) [place] % (Auto) Lymph # [place] # Seg Neutrophils % Seg Neuts % (Manual) 32.0 L Lymphocytes % (Manual) 12.0 L Monocytes % (Manual) 11.0 H Eosinophils % (Manual) 10.0 H Basophils % (Manual) Seg Neutrophils # Seg Neutrophils # Man Lymphocytes # (Manual) 1.0 L Monocytes # (Manual) 0.9 H Eosinophils # (Manual) 0.8 H Fibrinogen dRVVT Confirm Interp Factor V Activity POC ABG pH POC ABG pCO2 POC ABG pO2 Sodium 135 L 135 L Potassium 3.5 L Chloride 93.6 L 94.4 L Carbon Dioxide 17 L 21 L BUN 45 H 28 H Creatinine 3.3 H 2.5 H Glucose 106 H POC Glucose Lactic Acid Calcium 7.3 L 7.1 L Phosphorus Magnesium C-Reactive Protein Total Protein Albumin Triglycerides HDL Cholesterol Urine WBC (Auto) Urine Creatinine Urine Total Protein Vancomycin Trough Rheumatoid Factor Complement C4 Crossmatch 09/28/16 09/28/16 03:45 07:25 WBC 13.3 H RBC 3.01 L Hgb 8.4 L Hct 25.0 L MCV MCH MCHC RDW 20.5 H Plt Count 128 L Lymph % (Auto) [place] % (Auto) Lymph # [place] # Seg Neutrophils % Seg Neuts % (Manual) Lymphocytes % (Manual) 7.0 L Monocytes % (Manual) Eosinophils % (Manual) 6.0 H Basophils % (Manual) Seg Neutrophils # Seg Neutrophils # Man Lymphocytes # (Manual) 0.9 L Monocytes # (Manual) Eosinophils # (Manual) 0.8 H Fibrinogen dRVVT Confirm Interp Factor V Activity POC ABG pH POC ABG pCO2 POC ABG pO2 Sodium Potassium Chloride Carbon Dioxide BUN Creatinine Glucose POC Glucose Lactic Acid 4.50 H* Calcium Phosphorus Magnesium C-Reactive Protein Total Protein Albumin Triglycerides HDL Cholesterol Urine WBC (Auto) Urine Creatinine Urine Total Protein Vancomycin Trough Rheumatoid Factor Complement C4 Crossmatch Allied health notes reviewed: RT
--- NOTE | 2016-09-28 13:31 | Progress Note ---
Assessment and Plan Assessment and plan: --Anemia, status post multiple units of PRBC transfusion, closely monitor H&H and transfuse as needed --Acute hypoxic respiratory failure vent dependent/unable to wean s/p trach and PEG, continue PEG feeds --Hypotension/ septic shock on multiple pressors titrate systolic blood pressures to more than 100 --Acute on chronic kidney disease stage III , worsening renal function , nephrology following Hemodialysis as needed --Paroxysmal A. fib, persistent RVR ,on amiodarone drip Cardiology following --Acute large left MCA CVA status post TPA/encephalopathy Aspirin/statin/supportive care --Aspiration pneumonia Continue vancomycin and Flagyl, ID following --Acute exacerbation of COPD; Nebulizers tapering dose of steroids antibiotics and ventilatory support, pulmonary following --Anemia requiring blood transfusion; closely monitor H&H and transfuse as needed --2 diabetes mellitus; Accu-Chek sliding scale coverage and ADA diet and insulin as needed --Moderate to severe protein calorie malnutrition with albumin of 2.2 Nutritional supplements, tube feeding, supportive care --DVT prophylaxis with heparin --Full CODE STATUS Discharge planning ; possible LTAC placement when clinically stable Critical Care time 33 minutes The high probability of a clinically significant, sudden or life threatening deterioration of the [cardiovascular, pulmonary, infectious, renal and neurological] system(s) required my full and direct attention, intervention and personal management. The aggregate critical care time was [33] minutes. This time is in addition to time spent performing reported procedures but includes the following: [x] Data Review and interpretation [x] Patient assessment and monitoring of vital signs [x] Documentation [x] Medication orders and management Discussed with family members son and the brother many times in the past of poor prognosis and CODE STATUS, both want aggressive management. They have unrealistic expectations of patient's condition and prognosis Patient is critically ill , if she does not respond to treatment may have cardiorespiratory arrest any time soon Called both son and the brother to discuss patient's condition today, could not reach them Left a message to call back. Very poor prognosis, family aware. History Interval history: Patient seen and evaluated medical records reviewed Patient remains critically ill, status post tracheostomy on vent Hypotensive on pressor, A. fib with rapid ventricular rate on amiodarone drip In mild distress, unresponsive, spontaneous opening of eyes Vital signs reviewed Hospitalist Physical - Constitutional Vitals: Temp Pulse Resp BP Pulse Ox 100.4 F H 129 H 31 H 95/59 100 09/28/16 12:00 09/28/16 12:31 09/28/16 12:31 09/28/16 12:31 09/28/16 12:00 General appearance: Present: severe distress, obese, other (status post trach on vent) - EENT Eyes: Present: PERRL (spontaneous opening eyes, no purposeful movements) - Neck Neck: Present: supple, other (status post tracheostomy) - Respiratory Respiratory effort: labored Respiratory: bilateral: diminished, rhonchi, negative: wheezing - Cardiovascular Rhythm: irregularly irregular Heart Sounds: Present: S1 & S2 (rapid ventricular rate) - Extremities Extremities: no ischemia Extremity abnormal: edema - Abdominal General gastrointestinal: soft, non-tender, non-distended, normal bowel sounds, other (PEG tube in place) - Integumentary Integumentary: Present: clear, warm - Psychiatric Psychiatric: other (unresponsive) - Neurologic Neurologic: other (unresponsive) Results - Labs CBC & Chem 7: 09/28/16 03:45 09/28/16 03:45 Labs: Laboratory Last Values WBC 13.3 K/mm3 (4.5-11.0) H 09/28/16 03:45 RBC 3.01 M/mm3 (3.65-5.03) L 09/28/16 03:45 Hgb 8.4 gm/dl (10.1-14.3) L 09/28/16 03:45 Hct 25.0 % (30.3-42.9) L 09/28/16 03:45 MCV 83 fl (79-97) 09/28/16 03:45 MCH 28 pg (28-32) 09/28/16 03:45 MCHC 33 % (30-34) 09/28/16 03:45 RDW 20.5 % (13.2-15.2) H 09/28/16 03:45 Plt Count 128 K/mm3 (140-440) L 09/28/16 03:45 Lymph % (Auto) 6.9 % (13.4-35.0) L 09/21/16 07:45 [place] % (Auto) 9.4 % (0.0-7.3) H 09/21/16 07:45 Eos % (Auto) 0.3 % (0.0-4.3) 09/21/16 07:45 Baso % (Auto) 0.2 % (0.0-1.8) 09/21/16 07:45 Lymph # 0.9 K/mm3 (1.2-5.4) L 09/21/16 07:45 [place] # 1.3 K/mm3 (0.0-0.8) H 09/21/16 07:45 Eos # 0.0 K/mm3 (0.0-0.4) 09/21/16 07:45 Baso # 0.0 K/mm3 (0.0-0.1) 09/21/16 07:45 Add Manual Diff Complete 09/28/16 03:45 Total Counted 100 09/28/16 03:45 Seg Neutrophils % Industrial Energy Engineer 09/23/16 05:00 Seg Neuts % (Manual) 50.0 % (40.0-70.0) 09/28/16 03:45 Band Neutrophils % 29.0 % 09/28/16 03:45 Lymphocytes % (Manual) 7.0 % (13.4-35.0) L 09/28/16 03:45 Reactive Lymphs % (Man) 0 % 09/28/16 03:45 Monocytes % (Manual) 6.0 % (0.0-7.3) 09/28/16 03:45 Eosinophils % (Manual) 6.0 % (0.0-4.3) H 09/28/16 03:45 Basophils % (Manual) 0 % (0.0-1.8) 09/28/16 03:45 Metamyelocytes % 2.0 % 09/28/16 03:45 Myelocytes % 0 % 09/28/16 03:45 Promyelocytes % 0 % 09/28/16 03:45 Blast Cells % 0 % 09/28/16 03:45 Nucleated RBC % Not Reportable 09/28/16 03:45 Seg Neutrophils # 11.5 K/mm3 (1.8-7.7) H 09/21/16 07:45 Seg Neutrophils # Man 6.7 K/mm3 (1.8-7.7) 09/28/16 03:45 Band Neutrophils # 3.9 K/mm3 09/28/16 03:45 Lymphocytes # (Manual) 0.9 K/mm3 (1.2-5.4) L 09/28/16 03:45 Abs React Lymphs (Man) 0.0 K/mm3 09/28/16 03:45 Monocytes # (Manual) 0.8 K/mm3 (0.0-0.8) 09/28/16 03:45 Eosinophils # (Manual) 0.8 K/mm3 (0.0-0.4) H 09/28/16 03:45 Basophils # (Manual) 0.0 K/mm3 (0.0-0.1) 09/28/16 03:45 Metamyelocytes # 0.3 K/mm3 09/28/16 03:45 Myelocytes # 0.0 K/mm3 09/28/16 03:45 Promyelocytes # 0.0 K/mm3 09/28/16 03:45 Blast Cells # 0.0 K/mm3 09/28/16 03:45 Pathologist Review 09/13/16 04:00 WBC Morphology Not Reportable 09/28/16 03:45 Hypersegmented Neuts Not Reportable 09/28/16 03:45 Hyposegmented Neuts Not Reportable 09/28/16 03:45 Hypogranular Neuts Not Reportable 09/28/16 03:45 Smudge Cells Not Reportable 09/28/16 03:45 Toxic Granulation Not Reportable 09/28/16 03:45 Toxic Vacuolation Not Reportable 09/28/16 03:45 Dohle Bodies Not Reportable 09/28/16 03:45 Pelger-Huet Anomaly Not Reportable 09/28/16 03:45 Jasmina Rods Not Reportable 09/28/16 03:45 Platelet Estimate Consistent w auto 09/28/16 03:45 Clumped Platelets Not Reportable 09/28/16 03:45 Plt Clumps, EDTA Not Reportable 09/28/16 03:45 Large Platelets Not Reportable 09/28/16 03:45 Giant Platelets Not Reportable 09/28/16 03:45 Platelet Satelliting Not Reportable 09/28/16 03:45 Plt Morphology Comment Not Reportable 09/28/16 03:45 RBC Morphology Not Reportable 09/28/16 03:45 Dimorphic RBCs Not Reportable 09/28/16 03:45 Polychromasia Not Reportable 09/28/16 03:45 Hypochromasia Not Reportable 09/28/16 03:45 Poikilocytosis Not Reportable 09/28/16 03:45 Anisocytosis 1+ 09/28/16 03:45 Microcytosis Not Reportable 09/28/16 03:45 Macrocytosis Not Reportable 09/28/16 03:45 Spherocytes Not Reportable 09/28/16 03:45 Pappenheimer Bodies Not Reportable 09/28/16 03:45 Sickle Cells Not Reportable 09/28/16 03:45 Target Cells Not Reportable 09/28/16 03:45 Tear Drop Cells Not Reportable 09/28/16 03:45 Ovalocytes Not Reportable 09/28/16 03:45 Helmet Cells Not Reportable 09/28/16 03:45 [place] Bodies Not Reportable 09/28/16 03:45 [place] Rings Not Reportable 09/28/16 03:45 Chuck Cells Not Reportable 09/28/16 03:45 Bite Cells Not Reportable 09/28/16 03:45 Crenated Cell Not Reportable 09/28/16 03:45 Elliptocytes Not Reportable 09/28/16 03:45 Acanthocytes (Spur) Not Reportable 09/28/16 03:45 Rouleaux Not Reportable 09/28/16 03:45 Hemoglobin C Crystals Not Reportable 09/28/16 03:45 Schistocytes Not Reportable 09/28/16 03:45 Malaria parasites Not Reportable 09/28/16 03:45 ESR > 140.0 mm/Hr (0-20) 09/08/16 11:48 Jun Bodies Not Reportable 09/28/16 03:45 Hem Pathologist Commnt No 09/28/16 03:45 PT 13.8 Sec. (12.2-14.9) 09/15/16 05:00 INR 1.01 (0.87-1.13) 09/15/16 05:00 APTT 24.4 Sec. (24.2-36.6) 09/15/16 05:00 Thrombin Time 16.8 Sec. (15.1-19.6) 09/03/16 00:10 Fibrinogen 750 mg/dl (211-480) H 09/08/16 11:48 Lupus Anticoagulant see below 09/12/16 09:59 LA PTT Baseline See scanned report 09/12/16 09:59 dRVVT Confirm Interp Positive (Negative) H 09/12/16 09:59 dRVVT Screen 50:50 See scanned report 09/12/16 09:59 dRVVT Mix Interpret See scanned report 09/12/16 09:59 Protein C Antigen 122 % (70-140) 09/08/16 15:35 Free Protein S 97 % normal (50-147) 09/08/16 15:35 Total Protein S 109 % (70-140) 09/08/16 15:35 Antithrombin III Ag 100 % (80-120) 09/08/16 15:35 Factor V Activity 182 % (65-150) H 09/08/16 15:35 POC ABG pH 7.459 (7.35-7.45) H 09/27/16 15:00 POC ABG pCO2 27.1 (35-45) L 09/27/16 15:00 POC ABG pO2 140 (80-105) H 09/27/16 15:00 POC ABG HCO3 19.3 09/27/16 15:00 POC ABG Total CO2 20 09/27/16 15:00 POC ABG O2 Sat 99 09/27/16 15:00 POC ABG Base Excess -5 09/27/16 15:00 FiO2 50 % 09/27/16 15:00 Sodium 135 mmol/L (137-145) L 09/28/16 03:45 Potassium 3.5 mmol/L (3.6-5.0) L 09/28/16 03:45 Chloride 94.4 mmol/L (98-107) L 09/28/16 03:45 Carbon Dioxide 21 mmol/L (22-30) L 09/28/16 03:45 Anion Gap 23 mmol/L 09/28/16 03:45 BUN 28 mg/dL (7-17) H 09/28/16 03:45 Creatinine 2.5 mg/dL (0.7-1.2) H 09/28/16 03:45 Estimated GFR 25 ml/min 09/28/16 03:45 BUN/Creatinine Ratio 11.20 % 09/28/16 03:45 Glucose 87 mg/dL (65-100) 09/28/16 03:45 POC Glucose 101 (70-105) 09/28/16 05:42 Osmolality 351 Mosm/kg 09/16/16 11:47 Lactic Acid 4.50 mmol/L (0.7-2.0) H* 09/28/16 07:25 Calcium 7.1 mg/dL (8.4-10.2) L 09/28/16 03:45 Phosphorus 4.60 mg/dL (2.5-4.5) H 09/25/16 04:20 Magnesium 1.70 mg/dL (1.7-2.3) 09/26/16 04:25 Total Bilirubin 0.30 mg/dL (0.1-1.2) 09/13/16 04:00 AST 20 units/L (5-40) 09/13/16 04:00 ALT 18 units/L (7-56) 09/13/16 04:00 Alkaline Phosphatase 72 units/L (35-129) 09/13/16 04:00 Ammonia 27.0 umol/L (25-60) 09/07/16 08:37 Total Creatine Kinase 67 units/L (30-135) 09/03/16 11:26 CK-MB (CK-2) 1.4 ng/mL (0.0-4.0) 09/03/16 11:26 CK-MB (CK-2) Rel Index 2.0 (0-4) 09/03/16 11:26 Troponin T < 0.010 ng/mL (0.00-0.029) 09/06/16 10:43 C-Reactive Protein 3.20 mg/dL (0.00-1.30) H 09/23/16 05:00 Total Protein 6.2 g/dL (6.3-8.2) L 09/13/16 04:00 Albumin 2.9 g/dL (3.9-5) L 09/13/16 04:00 Albumin/Globulin Ratio 0.9 % 09/13/16 04:00 Triglycerides 243 mg/dL (2-149) H 09/20/16 04:10 Cholesterol 189 mg/dL (50-199) 09/04/16 03:31 LDL Cholesterol Direct 126 mg/dL (50-130) 09/04/16 03:31 HDL Cholesterol 31 mg/dL (40-59) L 09/04/16 03:31 Cholesterol/HDL Ratio 6.09 % 09/04/16 03:31 Angiotensin Convert Enz See scanned report 09/08/16 11:48 TSH 1.010 mlU/mL (0.270-4.200) 09/07/16 08:37 HCG, Qual Negative (Negative) 09/03/16 00:10 Urine Color Yellow (Yellow) 09/09/16 14:13 Urine Turbidity Slightly-cloudy (Clear) 09/09/16 14:13 Urine pH 5.0 (5.0-7.0) 09/09/16 14:13 Ur Specific [place] 1.012 (1.003-1.030) 09/09/16 14:13 Urine Protein 30 mg/dl mg/dL (Negative) 09/09/16 14:13 Urine Glucose (UA) Neg mg/dL (Negative) 09/09/16 14:13 Urine Ketones Neg mg/dL (Negative) 09/09/16 14:13 Urine Blood Lg (Negative) 09/09/16 14:13 Urine Nitrite Neg (Negative) 09/09/16 14:13 Urine Bilirubin Neg (Negative) 09/09/16 14:13 Urine Urobilinogen < 2.0 mg/dL (<2.0) 09/09/16 14:13 Ur Leukocyte Esterase Sm (Negative) 09/09/16 14:13 Urine WBC (Auto) 25.0 /HPF (0.0-6.0) H 09/09/16 14:13 Urine RBC (Auto) > 182.0 /HPF (0.0-6.0) 09/09/16 14:13 Urine Bacteria (Auto) 1+ /HPF (Negative) 09/09/16 14:13 Urine WBC Clumps 2+ /HPF 09/07/16 02:47 Hyaline Casts 4 /LPF 09/07/16 02:47 Urine Mucus Few /HPF 09/09/16 14:13 Urine Eosinophils None seen (None Seen) 09/07/16 16:00 Urine Total Volume 1350 09/21/16 12:00 Urine Creatinine 54.8 mg/dL (0.1-20.0) H 09/21/16 12:00 Height (in) 67.0 inches 09/21/16 12:00 Weight (lb) 92.0 lbs 09/21/16 12:00 Creatinine Clearance 15 09/21/16 12:00 Urine Sodium 36 mEq/L 09/16/16 19:19 Urine Total Protein 16 mg/dL (5-11.8) H 09/16/16 19:19 Vancomycin Trough 2.3 ug/mL (5.0-20.0) L 09/21/16 13:00 Random Vancomycin 2.3 ug/mL (0-40.0) 09/09/16 03:00 Urine Opiates Screen Presumptive negative 09/03/16 15:11 Urine Methadone Screen Presumptive positive 09/03/16 15:11 Ur Barbiturates Screen Presumptive positive 09/03/16 15:11 Ur Phencyclidine Scrn Presumptive negative 09/03/16 15:11 Ur Amphetamines Screen Presumptive negative 09/03/16 15:11 U Benzodiazepines Scrn Presumptive negative 09/03/16 15:11 Urine Cocaine Screen Presumptive negative 09/03/16 15:11 U Marijuana (THC) Screen Presumptive positive 09/03/16 15:11 Drugs of Abuse Note Disclamer 09/03/16 15:11 Rheumatoid Factor 24 IU/ml (0-13) H 09/08/16 11:48 SAHIL Screen Negative (Negative) 09/07/16 09:20 Proteinase 3 (PR3) Ab <1.0 AI (<1.0) 09/07/16 09:20 Myeloperoxidase Ab <1.0 AI (<1.0) 09/07/16 09:20 Sjogren's Antibody <1.0 AI (<1.0) 09/08/16 15:35 Scl-70 Scleroderma Ab <1.0 AI (<1.0) 09/08/16 15:35 Centromere B Antibody <1.0 AI (<1.0) 09/08/16 12:02 Cardiolipid IgG Ab <14 GPL (<=14) 09/12/16 09:59 Cardiolipid IgA Ab <11 APL (<=11) 09/12/16 09:59 Cardiolipid IgM Ab <12 MPL (<=12) 09/12/16 09:59 Complement C3 148 mg/dL (90-180) 09/07/16 09:20 Complement C4 58 mg/dL (16-47) H 09/07/16 09:20 RPR Nonreactive (Nonreactive) 09/08/16 11:48 Hepatitis A IgM Ab Non-reactive (NonReactive) 09/24/16 14:40 Hep Bs Antigen Non-reactive (Negative) 09/24/16 14:40 Hep B Core IgM Ab Non-reactive (NonReactive) 09/24/16 14:40 Hepatitis C Antibody Non-reactive (NonReactive) 09/24/16 14:40 HIV 1&2 Antibody Rapid Non react (Non React) 09/08/16 11:48 HIV P24 Antigen Non react (Non React) 09/08/16 11:48 Blood Type A POSITIVE 09/25/16 10:30 Antibody Screen TNR 09/25/16 10:30 DELORIS Antibody Screen Negative 09/25/16 10:30 Crossmatch See Detail 09/25/16 10:30
--- NOTE | 2016-09-28 13:41 | Event Note ---
Date: 09/28/16 Patient with fungemia and indwelling PICC line and dialysis catheter. The dialysis catheter has already been removed. A central line has been requested, in order to retain access after the PICC line is removed.
--- NOTE | 2016-09-28 13:43 | Operative Report ---
Operative Report Operative Report: Procedure: 1. RIJ central venous catheter placement 2. Ultrasound guided puncture of the RIJ vein. Date: 09/28/2016 Physician: Anisha Sy MD Indication: Critically ill 46-year-old female on multiple pressors, in need of central venous access. Technique: The patient was placed in the supine position and prepped and draped in the usual sterile fashion. A timeout was performed. Local anesthetic was administered. Under direct ultrasound guidance, the RIJ vein was accessed with an 18-gauge needle. An 035 wire was advanced into the IVC. After serial tissue dilation, the triple lumen catheter was advanced. Aspiration and flushing was performed. The catheter was secured to the skin with 2-0 Ethilon suture. Sterile dressings were placed. Findings: 1. Ultrasound demonstrates a patent and compressible RIJ vein. 2. There is successful placement of a 16 cm triple lumen central venous catheter via the RIJ vein. 3. Each lumen flushes and aspirates well. 4. Positioning of the catheter tip within the right atrium will be confirmed via Xray
[2016-09-28] MEDS ORDERED: KCL 20MEQ/100ML 20 MEQ/100 ML BAG IV ONE (14:00)
--- NOTE | 2016-09-28 14:23 | XRay Report ---
Portable chest: Catheter position. The patient has a right jugular central venous line with the tips approximately in the right atrium. In addition there is a left PICC line tip in the mid SVC and a well-positioned endotracheal tube. The lungs are clear the mediastinal contour is unremarkable. Compared to prior study of September 28 at 2 AM the only interval change is the right jugular line. Impression: Multiple well-positioned life support tubes. Unremarkable cardiopulmonary findings.
[2016-09-28] MEDS: MYCAMINE 100 MG in NACL 0.9% 100 ML IV SCH (21:27)
[2016-09-29] MEDS: FLAGYL 500 MG/100 ML 500 MG/100 ML BAG IV SCH ×3 (00:25→17:32)
[2016-09-29] MEDS: HumuLIN R SUB-Q SCH ×4 (00:26→18:08)
[2016-09-29] MEDS: REGLAN IV SCH ×4 (04:30→19:55)
[2016-09-29] MEDS: NEO-SYNEPHRINE 100 MG in NACL 0.9% 90 ML IV SCH (05:18)
[2016-09-29] MEDS: Vasostrict 20 UNIT in NACL 0.9% 100 ML IV SCH ×2 (06:12→19:54)
[2016-09-29] MEDS: D5W 1,000 ML with SODIUM BICARBONATE 75 MEQ IV SCH ×3 (06:13→20:54)
[2016-09-29] MEDS: HEPARIN SUB-Q SCH (06:15)
[2016-09-29 07:16] LABS: Hematocrit 23.2 % (30.3-42.9); Hemoglobin 7.6 gm/dl (10.1-14.3); Mean Corpuscular HGB Conc 33 % (30-34); Mean Corpuscular Hemoglobin 28 pg (28-32); Mean Corpuscular Volume 85 fl (79-97); Red Blood Count 2.74 M/mm3 (3.65-5.03)
[2016-09-29] MEDS: MERREM/NS 500 MG/50 ML 500 MG/50 ML BAG IV SCH (07:28)
--- NOTE | 2016-09-29 07:34 | XRay Report ---
Single view chest: Compared to 09/28/16. History: Followup of respiratory failure. Findings: Cardiomegaly. Tip of tracheostomy tube in normal position. Trachea is midline. Haziness right lower lobe obscuring diaphragm probably related to minimal pleural effusion. No consolidation. Linear density left lower lobe probably related to discoid atelectasis. Impression: Minimal right pleural effusion. Discoid atelectasis left lower lobe.
[2016-09-29 07:39] LABS: Calcium 6.6 mg/dL (8.4-10.2)
[2016-09-29 07:43] LABS: Albumin 1.3 g/dL (3.9-5); Bilirubin,Direct 0.9 mg/dL (0-0.2); Platelet Count 81 K/mm3 (140-440); Red Cell Distribution Width 20.5 % (13.2-15.2)
[2016-09-29] MEDS ORDERED: KCL 20MEQ/100ML 20 MEQ/100 ML BAG IV ONE (09:00)
[2016-09-29] MEDS ORDERED: MAGNESIUM SULFATE 2GM/50ML 2 GM/50 ML BAG IV ONE (09:00)
--- NOTE | 2016-09-29 09:00 | Progress Note ---
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 * Acute hypoxic respiratory failure * Left renal artery stenosis * Metabolic acidosis - improved * Anemia Plan: * No acute indication for hemodialysis today - electrolytes and oxygenation are stable * Vascath removed in light of fungemia - reinsertion of catheter pending clearance by ID * Pressors prn MAP>65 * Rate control per cardiology - HR remains in 130s * Transfusion of pRBC per primary team * Abx/antifungal per ID * Vent management per critical care * Dose medications for renal function * Avoid potential nephrotoxins Subjective Date of service: 09/29/16 Principal diagnosis: Acute resp failure on MVS; S/P Acute CVA; Acute Encephalopathy; JUANITA Interval history: No acute events overnight. FiO2 40, PEEP 5. Objective - Vital Signs Vital signs: Vital Signs - 12hr 09/28/16 09/28/16 09/28/16 21:01 21:15 21:31 Temperature Pulse Rate 134 H 137 H 123 H Pulse Rate [ From Monitor] Respiratory 30 H 30 H 28 H Rate Blood Pressure 108/61 86/51 105/58 O2 Sat by Pulse 99 100 100 Oximetry 09/28/16 09/28/16 09/28/16 21:45 22:00 22:15 Temperature Pulse Rate 135 H 135 H 127 H Pulse Rate [ From Monitor] Respiratory 33 H 29 H 29 H Rate Blood Pressure 94/52 89/51 93/48 O2 Sat by Pulse 100 100 100 Oximetry 09/28/16 09/28/16 09/28/16 22:19 22:30 22:45 Temperature Pulse Rate 122 H 124 H 128 H Pulse Rate [ From Monitor] Respiratory 29 H 29 H 29 H Rate Blood Pressure 93/48 87/47 85/55 O2 Sat by Pulse 100 100 100 Oximetry 09/28/16 09/28/16 09/28/16 23:00 23:15 23:30 Temperature Pulse Rate 131 H 136 H 127 H Pulse Rate [ From Monitor] Respiratory 29 H 30 H 25 H Rate Blood Pressure 85/54 91/48 85/54 O2 Sat by Pulse 100 100 100 Oximetry 09/28/16 09/29/16 09/29/16 23:45 00:00 00:15 Temperature 100.8 F H Pulse Rate 122 H 133 H 114 H Pulse Rate [ 124 H From Monitor] Respiratory 28 H 29 H 26 H Rate Blood Pressure 85/54 96/50 100/53 O2 Sat by Pulse 100 100 100 Oximetry 09/29/16 09/29/16 09/29/16 00:30 00:45 01:00 Temperature Pulse Rate 110 H 121 H 128 H Pulse Rate [ From Monitor] Respiratory 25 H 32 H 28 H Rate Blood Pressure 87/49 86/52 96/43 O2 Sat by Pulse 100 100 100 Oximetry 09/29/16 09/29/16 09/29/16 01:15 01:30 01:45 Temperature Pulse Rate 125 H 118 H 120 H Pulse Rate [ From Monitor] Respiratory 27 H 29 H 26 H Rate Blood Pressure 88/47 82/46 80/51 O2 Sat by Pulse 100 100 100 Oximetry 09/29/16 09/29/16 09/29/16 02:00 02:15 02:31 Temperature Pulse Rate 118 H 122 H 136 H Pulse Rate [ From Monitor] Respiratory 29 H 34 H 45 H Rate Blood Pressure 89/41 89/41 125/81 O2 Sat by Pulse 100 100 100 Oximetry 09/29/16 09/29/16 09/29/16 02:45 03:00 03:15 Temperature Pulse Rate 134 H 130 H 142 H Pulse Rate [ From Monitor] Respiratory 47 H 40 H 45 H Rate Blood Pressure 131/77 118/72 119/77 O2 Sat by Pulse 100 100 100 Oximetry 09/29/16 09/29/16 09/29/16 03:19 03:30 03:45 Temperature Pulse Rate 125 H 134 H 140 H Pulse Rate [ From Monitor] Respiratory 43 H 45 H Rate Blood Pressure 118/72 118/71 113/68 O2 Sat by Pulse 100 100 100 Oximetry 09/29/16 09/29/16 09/29/16 04:00 04:04 04:15 Temperature 100.9 F H Pulse Rate 126 H 117 H Pulse Rate [ 133 H From Monitor] Respiratory 43 H 28 H 27 H Rate Blood Pressure 110/62 103/56 O2 Sat by Pulse 100 100 100 Oximetry 09/29/16 09/29/16 09/29/16 04:30 04:45 05:00 Temperature Pulse Rate 130 H 134 H 127 H Pulse Rate [ From Monitor] Respiratory 40 H 34 H 42 H Rate Blood Pressure 110/52 106/69 107/72 O2 Sat by Pulse 100 98 100 Oximetry 09/29/16 09/29/16 09/29/16 05:15 05:30 05:45 Temperature Pulse Rate 129 H 123 H 115 H Pulse Rate [ From Monitor] Respiratory 38 H 42 H 40 H Rate Blood Pressure 103/61 105/63 102/57 O2 Sat by Pulse 100 100 100 Oximetry 09/29/16 09/29/16 09/29/16 06:00 06:15 06:30 Temperature Pulse Rate 117 H 123 H 133 H Pulse Rate [ From Monitor] Respiratory 37 H 37 H 33 H Rate Blood Pressure 107/59 95/58 102/71 O2 Sat by Pulse 100 100 100 Oximetry 09/29/16 09/29/16 09/29/16 06:46 07:00 07:16 Temperature Pulse Rate 123 H 132 H 125 H Pulse Rate [ From Monitor] Respiratory 40 H 37 H 37 H Rate Blood Pressure 102/71 110/66 110/66 O2 Sat by Pulse 100 100 99 Oximetry 09/29/16 09/29/16 09/29/16 07:30 07:46 07:57 Temperature 98.3 F Pulse Rate 127 H 117 H Pulse Rate [ From Monitor] Respiratory 40 H 42 H Rate Blood Pressure 110/66 110/66 O2 Sat by Pulse 100 99 Oximetry 09/29/16 09/29/16 09/29/16 08:00 08:05 08:16 Temperature 98.3 F Pulse Rate 120 H 160 H 146 H Pulse Rate [ 161 H From Monitor] Respiratory 34 H 28 H Rate Blood Pressure 95/59 110/66 95/59 O2 Sat by Pulse 99 99 99 Oximetry 09/29/16 08:30 Temperature Pulse Rate 128 H Pulse Rate [ From Monitor] Respiratory 41 H Rate Blood Pressure 95/59 O2 Sat by Pulse 97 Oximetry - General Appearance General appearance: well-developed, intubated (via trach) EENT: ATNC Respiratory: Present: Other (coarse BS) Cardiology: tachycardia Gastrointestinal: normal, no distended, obese Integumentary: no rash Musculoskeletal: other (+upper extremity edema) - Lab 09/29/16 06:45 09/29/16 06:45 Most recent lab results Calcium 6.6 mg/dL (8.4-10.2) L 09/29/16 06:45 Phosphorus 4.60 mg/dL (2.5-4.5) H 09/25/16 04:20 Magnesium 1.40 mg/dL (1.7-2.3) L 09/29/16 06:45 Urine Creatinine 54.8 mg/dL (0.1-20.0) H 09/21/16 12:00 Urine Sodium 36 mEq/L 09/16/16 19:19 Urine Total Protein 16 mg/dL (5-11.8) H 09/16/16 19:19
--- NOTE | 2016-09-29 09:01 | Progress Note ---
Assessment and Plan - Patient Problems (1) Fungemia Current Visit: Yes Status: Acute Plan to address problem: 1. Continue Micafungin. Follow results of current preliminary blood cultures. 2. Will repeat blood culture now that PICC and vascath are removed. (2) Sepsis Current Visit: Yes Status: Acute Qualifiers: Sepsis type: sepsis due to unspecified organism Qualified Code(s): A41.9 - Sepsis, unspecified organism Plan to address problem: 1. Empiric Meropenem discontinued. 2. Continue enteral Vancomycin and Flagyl. (3) Chronic renal insufficiency Current Visit: Yes Status: Acute Qualifiers: Chronic kidney disease stage: C Plan to address problem: Renally adjusted meds. Subjective Date of service: 09/29/16 Principal diagnosis: Acute resp failure on MVS; S/P Acute CVA; Acute Encephalopathy; JUANITA Interval history: Remains critically ill in ICU. Requiring one pressor now, previously 3 required to maintain BP. Copious gastric contents suctioned per PEG earlier. Objective - Constitutional Vitals: Vital Signs Temp Pulse Resp BP Pulse Ox 98.3 F 128 H 41 H 95/59 97 09/29/16 08:00 09/29/16 08:30 09/29/16 08:30 09/29/16 08:30 09/29/16 08:30 Temperature -Last 24 Hours Temperature 98.3 F Temperature 98.3 F Temperature 100.9 F Temperature 100.8 F Temperature 100.5 F Temperature 98.5 F Temperature 100.4 F General appearance: Present: other (in no obvious distress) - EENT Eyes: no scleral icterus - Neck Neck: supple, other (RIJ central line in place) - Respiratory Respiratory effort: normal Respiratory: bilateral: rhonchi - Cardiovascular Rhythm: regular (tachycardic to 100s) Heart Sounds: Present: S1 & S2 Extremities: No edema - Gastrointestinal General gastrointestinal: Present: soft, hypoactive bowel sounds, other (obese abdomen) - Integumentary Integumentary: clear, no jaundice, no rash - Additional findings Additional findings: PICC and vascath now removed, prior sites without signs of infection - Labs CBC & Chem 7: 09/29/16 06:45 09/29/16 06:45 Labs: Abnormal lab results 09/28/16 09/29/16 09/29/16 Range/Units 11:58 06:45 06:45 WBC 14.9 H (4.5-11.0) K/mm3 RBC 2.74 L (3.65-5.03) M/mm3 Hgb 7.6 L (10.1-14.3) gm/dl Hct 23.2 L (30.3-42.9) % RDW 20.5 H (13.2-15.2) % Plt Count 81 L (140-440) K/mm3 Sodium 133 L (137-145) mmol/L Potassium 3.4 L (3.6-5.0) mmol/L Chloride 92.5 L (98-107) mmol/L Carbon Dioxide 21 L (22-30) mmol/L BUN 33 H (7-17) mg/dL Creatinine 3.0 H (0.7-1.2) mg/dL POC Glucose 121 H (70-105) Calcium 6.6 L (8.4-10.2) mg/dL Magnesium (1.7-2.3) mg/dL Direct Bilirubin (0-0.2) mg/dL Total Protein (6.3-8.2) g/dL Albumin (3.9-5) g/dL 09/29/16 Range/Units 06:45 WBC (4.5-11.0) K/mm3 RBC (3.65-5.03) M/mm3 Hgb (10.1-14.3) gm/dl Hct (30.3-42.9) % RDW (13.2-15.2) % Plt Count (140-440) K/mm3 Sodium (137-145) mmol/L Potassium (3.6-5.0) mmol/L Chloride (98-107) mmol/L Carbon Dioxide (22-30) mmol/L BUN (7-17) mg/dL Creatinine (0.7-1.2) mg/dL POC Glucose (70-105) Calcium (8.4-10.2) mg/dL Magnesium 1.40 L (1.7-2.3) mg/dL Direct Bilirubin 0.9 H (0-0.2) mg/dL Total Protein 4.3 L (6.3-8.2) g/dL Albumin 1.3 L (3.9-5) g/dL Microbiology 09/23/16 16:55 Peripheral/Venous Blood Culture - Preliminary Silvia Albicans 09/23/16 16:55 Peripheral/Venous Blood Culture - Preliminary Silvia Albicans 09/23/16 16:30 Tracheal Aspirate Sputum Culture - Final 09/25/16 17:12 Peripheral/Venous Blood Fungal Culture - Preliminary Culture in Progress 09/25/16 17:12 Peripheral/Venous Blood Fungal Culture - Preliminary Culture in Progress 09/23/16 22:30 Urine,Catheterized - Indwelling Catheter Urine Culture - Final 09/13/16 10:30 Urine,[place] Urine Culture - Final NO GROWTH AFTER 48 HOURS 09/13/16 09:04 Peripheral/Venous Blood Culture - Final NO GROWTH AFTER 5 DAYS 09/13/16 08:39 Peripheral/Venous Blood Culture - Final NO GROWTH AFTER 5 DAYS 09/15/16 18:44 Stool Stool Occult Blood (HORTENCIA) - Final 09/13/16 14:06 Tracheal Aspirate Sputum Culture - Final 09/11/16 15:03 Stool C. difficile DNA Amplification - Final 09/10/16 10:58 Urine,Clean Catch Urine Culture - Preliminary NO GROWTH AFTER 48 HOURS 09/07/16 17:39 Tracheal Aspirate Sputum Culture - Final - Imaging and cardiology Chest x-ray: report reviewed (mild right pleural effusion)
[2016-09-29 09:13] LABS: Anisocytosis 1+; Band Neutrophils # (Manual) 1.2 K/mm3; Basophils % (Manual) 0 % (0.0-1.8); Platelet Estimate Consistent w Auto; Total Cells Counted 100
[2016-09-29] MEDS: CORDARONE 900 MG in D5W 482 ML IV SCH (09:42)
[2016-09-29] MEDS: LEVEMIR (NF) SUB-Q SCH (09:44)
[2016-09-29] MEDS: PROTONIX IV SCH ×2 (10:32→22:01)
--- NOTE | 2016-09-29 11:08 | Progress Note ---
Assessment and Plan Assessment and plan: --Acute hypoxic respiratory failure vent dependent/unable to wean s/p trach and PEG, continue PEG feeds --Paroxysmal A. fib, persistent RVR ,on amiodarone drip Cardiology following --Anemia, status post multiple units of PRBC transfusion, closely monitor H&H and transfuse as needed --Hypotension/ septic shock on multiple pressors titrate systolic blood pressures to more than 100 --Acute on chronic kidney disease stage III , worsening renal function , nephrology following Hemodialysis as needed --Acute large left MCA CVA status post TPA/encephalopathy Aspirin/statin/supportive care --Aspiration pneumonia Continue vancomycin and Flagyl, ID following --Acute exacerbation of COPD; Nebulizers tapering dose of steroids antibiotics and ventilatory support, pulmonary following --Anemia requiring blood transfusion; closely monitor H&H and transfuse as needed --2 diabetes mellitus; Accu-Chek sliding scale coverage and ADA diet and insulin as needed --Moderate to severe protein calorie malnutrition with albumin of 2.2 Nutritional supplements, tube feeding, supportive care --DVT prophylaxis with heparin --Full CODE STATUS Discharge planning ; possible LTAC placement when clinically stable Critical Care time 31minutes The high probability of a clinically significant, sudden or life threatening deterioration of the [cardiovascular, pulmonary, infectious, renal and neurological] system(s) required my full and direct attention, intervention and personal management. The aggregate critical care time was [31] minutes. This time is in addition to time spent performing reported procedures but includes the following: [x] Data Review and interpretation [x] Patient assessment and monitoring of vital signs [x] Documentation [x] Medication orders and management Discussed with the patient was at the bedside History Interval history: Patient remains critically ill Remains tachycardic on amiodarone drip, hypotensive on pressor Status post tracheostomy on vent, unresponsive Hospitalist Physical - Constitutional Vitals: Temp Pulse Resp BP Pulse Ox 98.3 F 129 H 29 H 93/66 100 09/29/16 08:00 09/29/16 09:16 09/29/16 09:16 09/29/16 09:16 09/29/16 09:16 General appearance: Present: mild distress, cachectic, other (status post tracheostomy on vent) - EENT Eyes: Present: PERRL, EOM intact - Neck Neck: Present: supple, other (status post tracheostomy on vent) - Respiratory Respiratory effort: labored Respiratory: bilateral: diminished, rhonchi, negative: rales, wheezing - Cardiovascular Rhythm: regular Heart Sounds: Present: S1 & S2 - Extremities Extremities: no ischemia Extremity abnormal: edema - Abdominal General gastrointestinal: soft, non-tender, non-distended, normal bowel sounds, other (PEG tube in place) - Integumentary Integumentary: Present: clear, warm - Psychiatric Psychiatric: other ( unresponsive) - Neurologic Neurologic: other (unresponsive) Results - Labs CBC & Chem 7: 09/29/16 06:45 09/29/16 06:45 Labs: Laboratory Last Values WBC 14.9 K/mm3 (4.5-11.0) H 09/29/16 06:45 RBC 2.74 M/mm3 (3.65-5.03) L 09/29/16 06:45 Hgb 7.6 gm/dl (10.1-14.3) L 09/29/16 06:45 Hct 23.2 % (30.3-42.9) L 09/29/16 06:45 MCV 85 fl (79-97) 09/29/16 06:45 MCH 28 pg (28-32) 09/29/16 06:45 MCHC 33 % (30-34) 09/29/16 06:45 RDW 20.5 % (13.2-15.2) H 09/29/16 06:45 Plt Count 81 K/mm3 (140-440) L 09/29/16 06:45 Lymph % (Auto) 6.9 % (13.4-35.0) L 09/21/16 07:45 [place] % (Auto) 9.4 % (0.0-7.3) H 09/21/16 07:45 Eos % (Auto) 0.3 % (0.0-4.3) 09/21/16 07:45 Baso % (Auto) 0.2 % (0.0-1.8) 09/21/16 07:45 Lymph # 0.9 K/mm3 (1.2-5.4) L 09/21/16 07:45 [place] # 1.3 K/mm3 (0.0-0.8) H 09/21/16 07:45 Eos # 0.0 K/mm3 (0.0-0.4) 09/21/16 07:45 Baso # 0.0 K/mm3 (0.0-0.1) 09/21/16 07:45 Add Manual Diff Complete 09/29/16 06:45 Total Counted 100 09/29/16 06:45 Seg Neutrophils % Pediatric Licensed Practical Nurse 09/23/16 05:00 Seg Neuts % (Manual) 81.0 % (40.0-70.0) H 09/29/16 06:45 Band Neutrophils % 8.0 % 09/29/16 06:45 Lymphocytes % (Manual) 4.0 % (13.4-35.0) L 09/29/16 06:45 Reactive Lymphs % (Man) 2.0 % 09/29/16 06:45 Monocytes % (Manual) 3.0 % (0.0-7.3) 09/29/16 06:45 Eosinophils % (Manual) 2.0 % (0.0-4.3) 09/29/16 06:45 Basophils % (Manual) 0 % (0.0-1.8) 09/29/16 06:45 Metamyelocytes % 0 % 09/29/16 06:45 Myelocytes % 0 % 09/29/16 06:45 Promyelocytes % 0 % 09/29/16 06:45 Blast Cells % 0 % 09/29/16 06:45 Nucleated RBC % Not Reportable 09/29/16 06:45 Seg Neutrophils # 11.5 K/mm3 (1.8-7.7) H 09/21/16 07:45 Seg Neutrophils # Man 12.1 K/mm3 (1.8-7.7) H 09/29/16 06:45 Band Neutrophils # 1.2 K/mm3 09/29/16 06:45 Lymphocytes # (Manual) 0.6 K/mm3 (1.2-5.4) L 09/29/16 06:45 Abs React Lymphs (Man) 0.3 K/mm3 09/29/16 06:45 Monocytes # (Manual) 0.4 K/mm3 (0.0-0.8) 09/29/16 06:45 Eosinophils # (Manual) 0.3 K/mm3 (0.0-0.4) 09/29/16 06:45 Basophils # (Manual) 0.0 K/mm3 (0.0-0.1) 09/29/16 06:45 Metamyelocytes # 0.0 K/mm3 09/29/16 06:45 Myelocytes # 0.0 K/mm3 09/29/16 06:45 Promyelocytes # 0.0 K/mm3 09/29/16 06:45 Blast Cells # 0.0 K/mm3 09/29/16 06:45 Pathologist Review 09/13/16 04:00 WBC Morphology Not Reportable 09/29/16 06:45 Hypersegmented Neuts Not Reportable 09/29/16 06:45 Hyposegmented Neuts Not Reportable 09/29/16 06:45 Hypogranular Neuts Not Reportable 09/29/16 06:45 Smudge Cells Not Reportable 09/29/16 06:45 Toxic Granulation Not Reportable 09/29/16 06:45 Toxic Vacuolation Not Reportable 09/29/16 06:45 Dohle Bodies Not Reportable 09/29/16 06:45 Pelger-Huet Anomaly Not Reportable 09/29/16 06:45 Jasmina Rods Not Reportable 09/29/16 06:45 Platelet Estimate Consistent w auto 09/29/16 06:45 Clumped Platelets Not Reportable 09/29/16 06:45 Plt Clumps, EDTA Not Reportable 09/29/16 06:45 Large Platelets Not Reportable 09/29/16 06:45 Giant Platelets Not Reportable 09/29/16 06:45 Platelet Satelliting Not Reportable 09/29/16 06:45 Plt Morphology Comment Not Reportable 09/29/16 06:45 RBC Morphology Not Reportable 09/29/16 06:45 Dimorphic RBCs Not Reportable 09/29/16 06:45 Polychromasia Not Reportable 09/29/16 06:45 Hypochromasia Not Reportable 09/29/16 06:45 Poikilocytosis Not Reportable 09/29/16 06:45 Anisocytosis 1+ 09/29/16 06:45 Microcytosis Not Reportable 09/29/16 06:45 Macrocytosis Not Reportable 09/29/16 06:45 Spherocytes Not Reportable 09/29/16 06:45 Pappenheimer Bodies Not Reportable 09/29/16 06:45 Sickle Cells Not Reportable 09/29/16 06:45 Target Cells Not Reportable 09/29/16 06:45 Tear Drop Cells Not Reportable 09/29/16 06:45 Ovalocytes Not Reportable 09/29/16 06:45 Helmet Cells Not Reportable 09/29/16 06:45 [place] Bodies Not Reportable 09/29/16 06:45 [place] Rings Not Reportable 09/29/16 06:45 [place] Cells Not Reportable 09/29/16 06:45 Bite Cells Not Reportable 09/29/16 06:45 Crenated Cell Not Reportable 09/29/16 06:45 Elliptocytes Not Reportable 09/29/16 06:45 Acanthocytes (Spur) Not Reportable 09/29/16 06:45 Rouleaux Not Reportable 09/29/16 06:45 Hemoglobin C Crystals Not Reportable 09/29/16 06:45 Schistocytes Not Reportable 09/29/16 06:45 Malaria parasites Not Reportable 09/29/16 06:45 ESR > 140.0 mm/Hr (0-20) 09/08/16 11:48 Jun Bodies Not Reportable 09/29/16 06:45 Hem Pathologist Commnt No 09/29/16 06:45 PT 13.8 Sec. (12.2-14.9) 09/15/16 05:00 INR 1.01 (0.87-1.13) 09/15/16 05:00 APTT 24.4 Sec. (24.2-36.6) 09/15/16 05:00 Thrombin Time 16.8 Sec. (15.1-19.6) 09/03/16 00:10 Fibrinogen 750 mg/dl (211-480) H 09/08/16 11:48 Lupus Anticoagulant see below 09/12/16 09:59 LA PTT Baseline See scanned report 09/12/16 09:59 dRVVT Confirm Interp Positive (Negative) H 09/12/16 09:59 dRVVT Screen 50:50 See scanned report 09/12/16 09:59 dRVVT Mix Interpret See scanned report 09/12/16 09:59 Protein C Antigen 122 % (70-140) 09/08/16 15:35 Free Protein S 97 % normal (50-147) 09/08/16 15:35 Total Protein S 109 % (70-140) 09/08/16 15:35 Antithrombin III Ag 100 % (80-120) 09/08/16 15:35 Factor V Activity 182 % (65-150) H 09/08/16 15:35 POC ABG pH 7.459 (7.35-7.45) H 09/27/16 15:00 POC ABG pCO2 27.1 (35-45) L 09/27/16 15:00 POC ABG pO2 140 (80-105) H 09/27/16 15:00 POC ABG HCO3 19.3 09/27/16 15:00 POC ABG Total CO2 20 09/27/16 15:00 POC ABG O2 Sat 99 09/27/16 15:00 POC ABG Base Excess -5 09/27/16 15:00 FiO2 50 % 09/27/16 15:00 Sodium 133 mmol/L (137-145) L 09/29/16 06:45 Potassium 3.4 mmol/L (3.6-5.0) L 09/29/16 06:45 Chloride 92.5 mmol/L (98-107) L 09/29/16 06:45 Carbon Dioxide 21 mmol/L (22-30) L 09/29/16 06:45 Anion Gap 23 mmol/L 09/29/16 06:45 BUN 33 mg/dL (7-17) H 09/29/16 06:45 Creatinine 3.0 mg/dL (0.7-1.2) H 09/29/16 06:45 Estimated GFR 20 ml/min 09/29/16 06:45 BUN/Creatinine Ratio 11.00 % 09/29/16 06:45 Glucose 84 mg/dL (65-100) 09/29/16 06:45 POC Glucose 84 (70-105) 09/29/16 05:43 Osmolality 351 Mosm/kg 09/16/16 11:47 Lactic Acid 4.50 mmol/L (0.7-2.0) H* 09/28/16 07:25 Calcium 6.6 mg/dL (8.4-10.2) L 09/29/16 06:45 Phosphorus 4.60 mg/dL (2.5-4.5) H 09/25/16 04:20 Magnesium 1.40 mg/dL (1.7-2.3) L 09/29/16 06:45 Total Bilirubin 1.20 mg/dL (0.1-1.2) 09/29/16 06:45 Direct Bilirubin 0.9 mg/dL (0-0.2) H 09/29/16 06:45 Indirect Bilirubin 0.3 mg/dL 09/29/16 06:45 AST 24 units/L (5-40) 09/29/16 06:45 ALT 16 units/L (7-56) 09/29/16 06:45 Alkaline Phosphatase 72 units/L (35-129) 09/29/16 06:45 Ammonia 27.0 umol/L (25-60) 09/07/16 08:37 Total Creatine Kinase 67 units/L (30-135) 09/03/16 11:26 CK-MB (CK-2) 1.4 ng/mL (0.0-4.0) 09/03/16 11:26 CK-MB (CK-2) Rel Index 2.0 (0-4) 09/03/16 11:26 Troponin T < 0.010 ng/mL (0.00-0.029) 09/06/16 10:43 C-Reactive Protein 3.20 mg/dL (0.00-1.30) H 09/23/16 05:00 Total Protein 4.3 g/dL (6.3-8.2) L 09/29/16 06:45 Albumin 1.3 g/dL (3.9-5) L 09/29/16 06:45 Albumin/Globulin Ratio 0.4 % 09/29/16 06:45 Triglycerides 243 mg/dL (2-149) H 09/20/16 04:10 Cholesterol 189 mg/dL (50-199) 09/04/16 03:31 LDL Cholesterol Direct 126 mg/dL (50-130) 09/04/16 03:31 HDL Cholesterol 31 mg/dL (40-59) L 09/04/16 03:31 Cholesterol/HDL Ratio 6.09 % 09/04/16 03:31 Angiotensin Convert Enz See scanned report 09/08/16 11:48 TSH 1.010 mlU/mL (0.270-4.200) 09/07/16 08:37 HCG, Qual Negative (Negative) 09/03/16 00:10 Urine Color Yellow (Yellow) 09/09/16 14:13 Urine Turbidity Slightly-cloudy (Clear) 09/09/16 14:13 Urine pH 5.0 (5.0-7.0) 09/09/16 14:13 Ur Specific [place] 1.012 (1.003-1.030) 09/09/16 14:13 Urine Protein 30 mg/dl mg/dL (Negative) 09/09/16 14:13 Urine Glucose (UA) Neg mg/dL (Negative) 09/09/16 14:13 Urine Ketones Neg mg/dL (Negative) 09/09/16 14:13 Urine Blood Lg (Negative) 09/09/16 14:13 Urine Nitrite Neg (Negative) 09/09/16 14:13 Urine Bilirubin Neg (Negative) 09/09/16 14:13 Urine Urobilinogen < 2.0 mg/dL (<2.0) 09/09/16 14:13 Ur Leukocyte Esterase Sm (Negative) 09/09/16 14:13 Urine WBC (Auto) 25.0 /HPF (0.0-6.0) H 09/09/16 14:13 Urine RBC (Auto) > 182.0 /HPF (0.0-6.0) 09/09/16 14:13 Urine Bacteria (Auto) 1+ /HPF (Negative) 09/09/16 14:13 Urine WBC Clumps 2+ /HPF 09/07/16 02:47 Hyaline Casts 4 /LPF 09/07/16 02:47 Urine Mucus Few /HPF 09/09/16 14:13 Urine Eosinophils None seen (None Seen) 09/07/16 16:00 Urine Total Volume 1350 09/21/16 12:00 Urine Creatinine 54.8 mg/dL (0.1-20.0) H 09/21/16 12:00 Height (in) 67.0 inches 09/21/16 12:00 Weight (lb) 92.0 lbs 09/21/16 12:00 Creatinine Clearance 15 09/21/16 12:00 Urine Sodium 36 mEq/L 09/16/16 19:19 Urine Total Protein 16 mg/dL (5-11.8) H 09/16/16 19:19 Vancomycin Trough 2.3 ug/mL (5.0-20.0) L 09/21/16 13:00 Random Vancomycin 2.3 ug/mL (0-40.0) 09/09/16 03:00 Urine Opiates Screen Presumptive negative 09/03/16 15:11 Urine Methadone Screen Presumptive positive 09/03/16 15:11 Ur Barbiturates Screen Presumptive positive 09/03/16 15:11 Ur Phencyclidine Scrn Presumptive negative 09/03/16 15:11 Ur Amphetamines Screen Presumptive negative 09/03/16 15:11 U Benzodiazepines Scrn Presumptive negative 09/03/16 15:11 Urine Cocaine Screen Presumptive negative 09/03/16 15:11 U Marijuana (THC) Screen Presumptive positive 09/03/16 15:11 Drugs of Abuse Note Disclamer 09/03/16 15:11 Rheumatoid Factor 24 IU/ml (0-13) H 09/08/16 11:48 SAHIL Screen Negative (Negative) 09/07/16 09:20 Proteinase 3 (PR3) Ab <1.0 AI (<1.0) 09/07/16 09:20 Myeloperoxidase Ab <1.0 AI (<1.0) 09/07/16 09:20 Sjogren's Antibody <1.0 AI (<1.0) 09/08/16 15:35 Scl-70 Scleroderma Ab <1.0 AI (<1.0) 09/08/16 15:35 Centromere B Antibody <1.0 AI (<1.0) 09/08/16 12:02 Cardiolipid IgG Ab <14 GPL (<=14) 09/12/16 09:59 Cardiolipid IgA Ab <11 APL (<=11) 09/12/16 09:59 Cardiolipid IgM Ab <12 MPL (<=12) 09/12/16 09:59 Complement C3 148 mg/dL (90-180) 09/07/16 09:20 Complement C4 58 mg/dL (16-47) H 09/07/16 09:20 RPR Nonreactive (Nonreactive) 09/08/16 11:48 Hepatitis A IgM Ab Non-reactive (NonReactive) 09/24/16 14:40 Hep Bs Antigen Non-reactive (Negative) 09/24/16 14:40 Hep B Core IgM Ab Non-reactive (NonReactive) 09/24/16 14:40 Hepatitis C Antibody Non-reactive (NonReactive) 09/24/16 14:40 HIV 1&2 Antibody Rapid Non react (Non React) 09/08/16 11:48 HIV P24 Antigen Non react (Non React) 09/08/16 11:48 Blood Type A POSITIVE 09/25/16 10:30 Antibody Screen TNR 09/25/16 10:30 DELORIS Antibody Screen Negative 09/25/16 10:30 Crossmatch See Detail 09/25/16 10:30
--- NOTE | 2016-09-29 12:03 | Progress Note ---
Assessment and Plan Acute hypoxic respiratory failure on mechanical ventilation s/p trach and PEG Acute left MCA CVA echocardiogram demonstrates at least moderate LVH but a normal LV systolic function, EF 50-55%. no thrombus visualized on transthoracic echocardiogram. Hypertension Now patient is hypotensive Acute on chronic renal failure Leukocytosis/Fever Fungemia Diabetes mellitus Anemia requiring transfusion of PRBCs Persistent Afib with RVR on multiple pressors s/p failed cardioversion on 09/25 on amiodarone drip and IV digoxin Recommendation: Continue intravenous digoxin and intravenous amiodarone drip for A. fib rate control. Subjective Date of service: 09/29/16 Principal diagnosis: Acute resp failure on MVS; S/P Acute CVA; Acute Encephalopathy; JUANITA Interval history: Patient remains unresponsive, intubated via trach. Objective Vital Signs Temp Pulse Pulse Resp BP Pulse Ox Pulse Ox 09/29/16 11:16 145 H 25 H 105/51 100 09/29/16 11:00 110 H 27 H 105/51 99 09/29/16 10:46 127 H 26 H 104/55 99 09/29/16 10:30 129 H 30 H 104/55 99 09/29/16 10:16 130 H 27 H 104/55 99 09/29/16 10:00 120 H 31 H 104/55 99 09/29/16 09:46 128 H 26 H 93/66 98 09/29/16 09:30 133 H 28 H 93/66 99 09/29/16 09:16 129 H 29 H 93/66 100 09/29/16 09:00 133 H 23 93/66 99 09/29/16 08:50 98 09/29/16 08:46 138 H 30 H 95/59 97 09/29/16 08:30 128 H 41 H 95/59 97 09/29/16 08:16 146 H 28 H 95/59 99 09/29/16 08:05 160 H 110/66 99 09/29/16 08:00 98.3 F 120 H 161 H 34 H 95/59 99 09/29/16 07:57 98.3 F 09/29/16 07:46 117 H 42 H 110/66 99 09/29/16 07:30 127 H 40 H 110/66 100 09/29/16 07:16 125 H 37 H 110/66 99 09/29/16 07:00 132 H 37 H 110/66 100 09/29/16 06:46 123 H 40 H 102/71 100 09/29/16 06:30 133 H 33 H 102/71 100 09/29/16 06:15 123 H 37 H 95/58 100 09/29/16 06:00 117 H 37 H 107/59 100 09/29/16 05:45 115 H 40 H 102/57 100 09/29/16 05:30 123 H 42 H 105/63 100 09/29/16 05:15 129 H 38 H 103/61 100 09/29/16 05:00 127 H 42 H 107/72 100 09/29/16 04:45 134 H 34 H 106/69 98 09/29/16 04:30 130 H 40 H 110/52 09/29/16 04:15 117 H 27 H 103/56 100 09/29/16 04:04 133 H 28 H 100 09/29/16 04:00 100.9 F H 126 H 43 H 110/62 09/29/16 03:45 140 H 45 H 113/68 09/29/16 03:30 134 H 43 H 118/71 09/29/16 03:19 125 H 118/72 09/29/16 03:15 142 H 45 H 119/77 09/29/16 03:00 130 H 40 H 118/72 09/29/16 02:45 134 H 47 H 131/77 09/29/16 02:31 136 H 45 H 125/81 09/29/16 02:15 122 H 34 H 89/41 09/29/16 02:00 118 H 29 H 89/41 09/29/16 01:45 120 H 26 H 80/51 09/29/16 01:30 118 H 29 H 82/46 09/29/16 01:15 125 H 27 H 88/47 09/29/16 01:00 128 H 28 H 96/43 09/29/16 00:45 121 H 32 H 86/52 100 09/29/16 00:30 110 H 25 H 87/49 100 09/29/16 00:15 114 H 26 H 100/53 100 09/29/16 00:00 100.8 F H 133 H 124 H 29 H 96/50 100 09/28/16 23:45 122 H 28 H 85/54 100 09/28/16 23:30 127 H 25 H 85/54 100 09/28/16 23:15 136 H 30 H 91/48 100 09/28/16 23:00 131 H 29 H 85/54 100 09/28/16 22:45 128 H 29 H 85/55 100 09/28/16 22:30 124 H 29 H 87/47 100 09/28/16 22:19 122 H 29 H 93/48 100 09/28/16 22:15 127 H 29 H 93/48 100 09/28/16 22:00 135 H 29 H 89/51 100 09/28/16 21:45 135 H 33 H 94/52 100 09/28/16 21:31 123 H 28 H 105/58 09/28/16 21:15 137 H 30 H 86/51 100 09/28/16 21:01 134 H 30 H 108/61 99 09/28/16 20:45 128 H 25 H 97/66 97 09/28/16 20:30 130 H 29 H 97/66 100 09/28/16 20:15 132 H 30 H 106/66 100 09/28/16 20:00 100.5 F H 137 H 28 H 109/62 100 09/28/16 19:45 137 H 30 H 108/75 100 09/28/16 19:30 132 H 29 H 116/76 100 09/28/16 19:15 134 H 32 H 129/68 100 09/28/16 19:00 139 H 28 H 123/71 100 09/28/16 18:45 139 H 30 H 128/74 100 09/28/16 18:30 140 H 32 H 113/83 100 09/28/16 18:15 142 H 30 H 118/80 100 09/28/16 18:01 130 H 29 H 118/80 100 09/28/16 17:45 123 H 28 H 97/64 100 09/28/16 17:30 124 H 28 H 102/54 100 09/28/16 17:15 114 H 29 H 108/54 100 09/28/16 17:00 137 H 29 H 116/70 100 09/28/16 16:45 127 H 29 H 101/50 100 09/28/16 16:30 119 H 29 H 104/58 100 09/28/16 16:15 118 H 30 H 103/55 100 09/28/16 16:00 98.5 F 121 H 125 H 28 H 113/51 100 09/28/16 15:45 125 H 29 H 107/63 100 09/28/16 15:30 120 H 26 H 96/58 100 09/28/16 15:15 135 H 29 H 111/60 100 09/28/16 15:00 134 H 29 H 104/66 100 09/28/16 14:45 131 H 28 H 111/60 100 09/28/16 14:30 126 H 28 H 116/71 100 09/28/16 14:15 126 H 31 H 108/68 100 09/28/16 14:00 129 H 18 104/67 100 09/28/16 13:45 132 H 30 H 103/55 09/28/16 13:30 127 H 30 H 103/55 09/28/16 13:15 132 H 28 H 107/54 09/28/16 13:00 124 H 29 H 107/54 09/28/16 12:45 143 H 29 H 105/66 09/28/16 12:31 129 H 31 H 95/59 09/28/16 12:15 133 H 34 H 93/60 - Physical Examination General: Other (intubated via trach) Cardiac: Positive: irregularly irregular - Labs and Meds Cardiac Enzymes 09/29/16 Range/Units 06:45 AST 24 (5-40) units/L CBC 09/29/16 Range/Units 06:45 WBC 14.9 H (4.5-11.0) K/mm3 RBC 2.74 L (3.65-5.03) M/mm3 Hgb 7.6 L (10.1-14.3) gm/dl Hct 23.2 L (30.3-42.9) % Plt Count 81 L (140-440) K/mm3 Comprehensive Metabolic Panel 09/29/16 09/29/16 Range/Units 06:45 06:45 Sodium 133 L (137-145) mmol/L Potassium 3.4 L (3.6-5.0) mmol/L Chloride 92.5 L (98-107) mmol/L Carbon Dioxide 21 L (22-30) mmol/L BUN 33 H (7-17) mg/dL Creatinine 3.0 H (0.7-1.2) mg/dL Glucose 84 (65-100) mg/dL Calcium 6.6 L (8.4-10.2) mg/dL Direct Bilirubin 0.9 H (0-0.2) mg/dL Indirect Bilirubin 0.3 mg/dL AST 24 (5-40) units/L ALT 16 (7-56) units/L Alkaline Phosphatase 72 (35-129) units/L Total Protein 4.3 L (6.3-8.2) g/dL Albumin 1.3 L (3.9-5) g/dL - Imaging and Cardiology EKG: image reviewed - Allied health notes Allied health notes reviewed: RT
--- NOTE | 2016-09-29 12:29 | Progress Note ---
Assessment and Plan (1) Acute respiratory failure with hypoxia Current Visit: Yes Status: Acute Plan to address problem: - continue aspiration precautions / address VAP bundles - continue to wean oxygen for MAP > 94% - continue bronchodilators and pulmonary toilet - tapered off systemic steroids (no active needs pulmonary-aquino) - completed empiric levaquin dosing - s/p tracheostomy - placed back on AC mode after review of ABG and secondary to increased work of breathing - increased set rate also - failed weaning trial today with increased work of breathing - resume daily weaning attempts as tolerated in am (2) Acute CVA (cerebrovascular accident) Current Visit: Yes Status: Acute Plan to address problem: - out of tpA window (initially stopped due to uncontrolled HTN) - Left MCA teritory stroke with some midline shift on last CT - seen by neurology and prognosis for recovery of mental status guarded to poor - optimizing secondary prevention modalities now (BP, lipid anti-platelet therapy) - off systemic steroids now (started earlier for edema) (3) Hypertensive emergency Current Visit: Yes Status: Acute Plan to address problem: - stopped all antihypertensives while septic - follow cllinically (4) Obesity (BMI 35.0-39.9 without comorbidity) Current Visit: Yes Status: Chronic Plan to address problem: - increased reglan dose - resume trickle feeding at 10mls/hr (5) Type 2 diabetes mellitus Current Visit: Yes Status: Chronic Qualifiers: Diabetes mellitus complication status: D Diabetes mellitus complication detail: D Diabetic retinopathy severity: D Proliferative retinopathy type: P Diabetes mellitus macular edema: D Diabetes mellitus chcf insulin use : D Laterality: L Chronic kidney disease stage: C Plan to address problem: - continue SSI - discontinue lantus re: hypoglycemia (6) Leukocytosis (leucocytosis) Current Visit: Yes Status: Acute Qualifiers: Leukocytosis type: leukemoid reaction Qualified Code(s): D72.823 - Leukemoid reaction Plan to address problem: - has been spiking fevers also - fungemia noted - started diflucan as growing dann albicans but will follow sensitivities - will discontinue diflucan re: amiodarone interaction and begin micafungin (7) Agitation Current Visit: Yes Status: Acute Plan to address problem: - prn sedation / analgesia - tapered off seroquel for now (8) Atrial fibrillation Current Visit: Yes Status: Acute Qualifiers: Atrial fibrillation type: A Plan to address problem: - failed cardioversion earlier - cardiology evaluation ongoing - on amiodarone drip (9) JUANITA (acute kidney injury) Current Visit: Yes Status: Acute Plan to address problem: - on Dialysis now - oliguric - will defer to nephrology - continue vasopressor support re: cardiorenal issues and to aid dialysis - BP's better but still on vasopressin - replace vas-cath tomorrow or day after (pulled due to fungemia earlier) (10) Pyrexia of unknown origin Current Visit: Yes Status: Acute Plan to address problem: - will get dopplers as part of a PUO work-up to r/o VTE - continue to treat with AB;'s empirically - changed diflucan to micafungin (11) Severe sepsis Current Visit: Yes Status: Acute Plan to address problem: - SvO2 estimate was 55% yesterday - volume resuscitated to boost cardiac output and tissue oxygen delivery - continue AB's and follow cultures - wean vasopressors for target MAP >/= 60-65mmHg - changed diflucan to micafungin - will need to discontinue central lines and vascath (will discontinue vascath after dialysis today then get new PICC line tomorrow before discontinuing current line as she is on pressors) - plan to replace vascath before next dialysis session / after 48hrs - care plan formulated with ID input - vascath and PICC pulled with new RIJ placed (12) Emesis Current Visit: Yes Status: Acute Qualifiers: Vomiting type: V Vomiting Intractability: V Nausea presence: N Plan to address problem: - continue PEG to LIS - continue reglan - add erhythromycin - resume trickle feeding in am (13) Discharge planning issues Current Visit: Yes Status: Acute Plan to address problem: - she remains critically ill on life sustaining interventions including MVS and at risk for further acute deterioration including .....35' CCT ....prognosis is guarded ...care plan discussed during team rounds and with her brother today Subjective Date of service: 09/29/16 Principal diagnosis: Acute resp failure on MVS; S/P Acute CVA; Acute Encephalopathy; JUANITA Interval history: Seen and examined at bedside; 24 hour events reviewed; nursing and respiratory care staff consulted; no adverse overnight events reported to me; resting peascefully in bed; continues to wean off vasopressors; currently only on vasopressin at 0.03 units/min; PEG to suction and about 400mls after 4-5 hrs this am; no emesis or overt aspiration and no gross bleeding Objective Vital Signs - 12hr 09/29/16 09/29/16 09/29/16 00:30 00:45 01:00 Temperature Pulse Rate 110 H 121 H 128 H Pulse Rate [ From Monitor] Respiratory 25 H 32 H 28 H Rate Blood Pressure 87/49 86/52 96/43 O2 Sat by Pulse 100 100 100 Oximetry O2 Sat by Pulse Oximetry [ Assessment] 09/29/16 09/29/16 09/29/16 01:15 01:30 01:45 Temperature Pulse Rate 125 H 118 H 120 H Pulse Rate [ From Monitor] Respiratory 27 H 29 H 26 H Rate Blood Pressure 88/47 82/46 80/51 O2 Sat by Pulse 100 100 100 Oximetry O2 Sat by Pulse Oximetry [ Assessment] 09/29/16 09/29/16 09/29/16 02:00 02:15 02:31 Temperature Pulse Rate 118 H 122 H 136 H Pulse Rate [ From Monitor] Respiratory 29 H 34 H 45 H Rate Blood Pressure 89/41 89/41 125/81 O2 Sat by Pulse 100 100 100 Oximetry O2 Sat by Pulse Oximetry [ Assessment] 09/29/16 09/29/16 09/29/16 02:45 03:00 03:15 Temperature Pulse Rate 134 H 130 H 142 H Pulse Rate [ From Monitor] Respiratory 47 H 40 H 45 H Rate Blood Pressure 131/77 118/72 119/77 O2 Sat by Pulse 100 100 100 Oximetry O2 Sat by Pulse Oximetry [ Assessment] 09/29/16 09/29/16 09/29/16 03:19 03:30 03:45 Temperature Pulse Rate 125 H 134 H 140 H Pulse Rate [ From Monitor] Respiratory 43 H 45 H Rate Blood Pressure 118/72 118/71 113/68 O2 Sat by Pulse 100 100 100 Oximetry O2 Sat by Pulse Oximetry [ Assessment] 09/29/16 09/29/16 09/29/16 04:00 04:04 04:15 Temperature 100.9 F H Pulse Rate 126 H 117 H Pulse Rate [ 133 H From Monitor] Respiratory 43 H 28 H 27 H Rate Blood Pressure 110/62 103/56 O2 Sat by Pulse 100 100 100 Oximetry O2 Sat by Pulse Oximetry [ Assessment] 09/29/16 09/29/16 09/29/16 04:30 04:45 05:00 Temperature Pulse Rate 130 H 134 H 127 H Pulse Rate [ From Monitor] Respiratory 40 H 34 H 42 H Rate Blood Pressure 110/52 106/69 107/72 O2 Sat by Pulse 100 98 100 Oximetry O2 Sat by Pulse Oximetry [ Assessment] 09/29/16 09/29/16 09/29/16 05:15 05:30 05:45 Temperature Pulse Rate 129 H 123 H 115 H Pulse Rate [ From Monitor] Respiratory 38 H 42 H 40 H Rate Blood Pressure 103/61 105/63 102/57 O2 Sat by Pulse 100 100 100 Oximetry O2 Sat by Pulse Oximetry [ Assessment] 09/29/16 09/29/16 09/29/16 06:00 06:15 06:30 Temperature Pulse Rate 117 H 123 H 133 H Pulse Rate [ From Monitor] Respiratory 37 H 37 H 33 H Rate Blood Pressure 107/59 95/58 102/71 O2 Sat by Pulse 100 100 100 Oximetry O2 Sat by Pulse Oximetry [ Assessment] 09/29/16 09/29/16 09/29/16 06:46 07:00 07:16 Temperature Pulse Rate 123 H 132 H 125 H Pulse Rate [ From Monitor] Respiratory 40 H 37 H 37 H Rate Blood Pressure 102/71 110/66 110/66 O2 Sat by Pulse 100 100 99 Oximetry O2 Sat by Pulse Oximetry [ Assessment] 09/29/16 09/29/16 09/29/16 07:30 07:46 07:57 Temperature 98.3 F Pulse Rate 127 H 117 H Pulse Rate [ From Monitor] Respiratory 40 H 42 H Rate Blood Pressure 110/66 110/66 O2 Sat by Pulse 100 99 Oximetry O2 Sat by Pulse Oximetry [ Assessment] 09/29/16 09/29/16 09/29/16 08:00 08:05 08:16 Temperature 98.3 F Pulse Rate 120 H 160 H 146 H Pulse Rate [ 161 H From Monitor] Respiratory 34 H 28 H Rate Blood Pressure 95/59 110/66 95/59 O2 Sat by Pulse 99 99 99 Oximetry O2 Sat by Pulse Oximetry [ Assessment] 09/29/16 09/29/16 09/29/16 08:30 08:46 08:50 Temperature Pulse Rate 128 H 138 H Pulse Rate [ From Monitor] Respiratory 41 H 30 H Rate Blood Pressure 95/59 95/59 O2 Sat by Pulse 97 97 Oximetry O2 Sat by Pulse 98 Oximetry [ Assessment] 09/29/16 09/29/16 09/29/16 09:00 09:16 09:30 Temperature Pulse Rate 133 H 129 H 133 H Pulse Rate [ From Monitor] Respiratory 23 29 H 28 H Rate Blood Pressure 93/66 93/66 93/66 O2 Sat by Pulse 99 100 99 Oximetry O2 Sat by Pulse Oximetry [ Assessment] 09/29/16 09/29/16 09/29/16 09:46 10:00 10:16 Temperature Pulse Rate 128 H 120 H 130 H Pulse Rate [ From Monitor] Respiratory 26 H 31 H 27 H Rate Blood Pressure 93/66 104/55 104/55 O2 Sat by Pulse 98 99 99 Oximetry O2 Sat by Pulse Oximetry [ Assessment] 09/29/16 09/29/16 09/29/16 10:30 10:46 11:00 Temperature Pulse Rate 129 H 127 H 110 H Pulse Rate [ From Monitor] Respiratory 30 H 26 H 27 H Rate Blood Pressure 104/55 104/55 105/51 O2 Sat by Pulse 99 99 99 Oximetry O2 Sat by Pulse Oximetry [ Assessment] 09/29/16 11:16 Temperature Pulse Rate 145 H Pulse Rate [ From Monitor] Respiratory 25 H Rate Blood Pressure 105/51 O2 Sat by Pulse 100 Oximetry O2 Sat by Pulse Oximetry [ Assessment] Constitutional: no acute distress, other (encephalopathic; off sedation now) Eyes: non-icteric, other (tracheostomy tube in midline of neck) ENT: oropharynx moist Neck: supple, no lymphadenopathy Effort: mildly labored Ascultation: Bilateral: diminished breath sounds, rales Cardiovascular: regular rate and rhythm Gastrointestinal: hypoactive bowel sounds, soft, non-tender, non-distended Integumentary: normal Extremities: no cyanosis, no edema, pulses normal, no ischemia or petechiae Neurologic: pupils equal and round, other (sedated) Psychiatric: other (unable to assess) CBC and BMP: 09/29/16 06:45 09/29/16 06:45 ABG, PT/INR, D-dimer: ABG POC ABG pH 7.459 (7.35-7.45) H 09/27/16 15:00 POC ABG pCO2 27.1 (35-45) L 09/27/16 15:00 POC ABG pO2 140 (80-105) H 09/27/16 15:00 POC ABG HCO3 19.3 09/27/16 15:00 POC ABG Total CO2 20 09/27/16 15:00 POC ABG O2 Sat 99 09/27/16 15:00 PT/INR, D-dimer PT 13.8 Sec. (12.2-14.9) 09/15/16 05:00 INR 1.01 (0.87-1.13) 09/15/16 05:00 Abnormal lab findings: Abnormal Labs 09/03/16 09/03/16 09/03/16 12:12 15:07 16:20 WBC RBC Hgb Hct MCV MCH MCHC RDW Plt Count Lymph % (Auto) Barron % (Auto) Lymph # Barron # Seg Neutrophils % Seg Neuts % (Manual) Lymphocytes % (Manual) Monocytes % (Manual) Eosinophils % (Manual) Basophils % (Manual) Seg Neutrophils # Seg Neutrophils # Man Lymphocytes # (Manual) Monocytes # (Manual) Eosinophils # (Manual) Fibrinogen dRVVT Confirm Interp Factor V Activity POC ABG pH 7.452 H POC ABG pCO2 POC ABG pO2 Sodium Potassium Chloride Carbon Dioxide BUN Creatinine Glucose POC Glucose 178 H Lactic Acid Calcium Phosphorus 2.20 L Magnesium 1.60 L Direct Bilirubin C-Reactive Protein Total Protein Albumin Triglycerides HDL Cholesterol Urine WBC (Auto) Urine Creatinine Urine Total Protein Vancomycin Trough Rheumatoid Factor Complement C4 Crossmatch 09/03/16 09/03/16 09/03/16 17:57 17:58 23:50 WBC RBC Hgb Hct MCV MCH MCHC RDW Plt Count Lymph % (Auto) Barron % (Auto) Lymph # Barron # Seg Neutrophils % Seg Neuts % (Manual) Lymphocytes % (Manual) Monocytes % (Manual) Eosinophils % (Manual) Basophils % (Manual) Seg Neutrophils # Seg Neutrophils # Man Lymphocytes # (Manual) Monocytes # (Manual) Eosinophils # (Manual) Fibrinogen dRVVT Confirm Interp Factor V Activity POC ABG pH POC ABG pCO2 POC ABG pO2 Sodium Potassium Chloride Carbon Dioxide BUN Creatinine Glucose POC Glucose 162 H 145 H Lactic Acid Calcium Phosphorus 2.30 L Magnesium Direct Bilirubin C-Reactive Protein Total Protein Albumin Triglycerides HDL Cholesterol Urine WBC (Auto) Urine Creatinine Urine Total Protein Vancomycin Trough Rheumatoid Factor Complement C4 Crossmatch 09/04/16 09/04/16 09/04/16 03:31 03:31 05:42 WBC RBC Hgb 9.7 L D Hct MCV 72 L MCH 23 L MCHC RDW 17.5 H Plt Count Lymph % (Auto) 11.1 L Barron % (Auto) Lymph # Barron # Seg Neutrophils % 84.3 H Seg Neuts % (Manual) Lymphocytes % (Manual) Monocytes % (Manual) Eosinophils % (Manual) Basophils % (Manual) Seg Neutrophils # 8.9 H Seg Neutrophils # Man Lymphocytes # (Manual) Monocytes # (Manual) Eosinophils # (Manual) Fibrinogen dRVVT Confirm Interp Factor V Activity POC ABG pH POC ABG pCO2 POC ABG pO2 Sodium 135 L Potassium 2.9 L* Chloride 97.2 L Carbon Dioxide 19 L BUN Creatinine 1.7 H Glucose 170 H POC Glucose 152 H Lactic Acid Calcium Phosphorus Magnesium Direct Bilirubin C-Reactive Protein Total Protein Albumin Triglycerides 160 H HDL Cholesterol 31 L Urine WBC (Auto) Urine Creatinine Urine Total Protein Vancomycin Trough Rheumatoid Factor Complement C4 Crossmatch 09/04/16 09/04/16 09/04/16 11:34 17:46 23:29 WBC RBC Hgb Hct MCV MCH MCHC RDW Plt Count Lymph % (Auto) Barron % (Auto) Lymph # Barron # Seg Neutrophils % Seg Neuts % (Manual) Lymphocytes % (Manual) Monocytes % (Manual) Eosinophils % (Manual) Basophils % (Manual) Seg Neutrophils # Seg Neutrophils # Man Lymphocytes # (Manual) Monocytes # (Manual) Eosinophils # (Manual) Fibrinogen dRVVT Confirm Interp Factor V Activity POC ABG pH POC ABG pCO2 POC ABG pO2 Sodium Potassium Chloride Carbon Dioxide BUN Creatinine Glucose POC Glucose 165 H 210 H 139 H Lactic Acid Calcium Phosphorus Magnesium Direct Bilirubin C-Reactive Protein Total Protein Albumin Triglycerides HDL Cholesterol Urine WBC (Auto) Urine Creatinine Urine Total Protein Vancomycin Trough Rheumatoid Factor Complement C4 Crossmatch 09/05/16 09/05/16 09/05/16 04:05 04:05 05:38 WBC RBC Hgb Hct MCV 76 L D MCH 23 L MCHC RDW 17.8 H Plt Count Lymph % (Auto) Barron % (Auto) Lymph # Barron # Seg Neutrophils % Seg Neuts % (Manual) Lymphocytes % (Manual) Monocytes % (Manual) Eosinophils % (Manual) Basophils % (Manual) Seg Neutrophils # Seg Neutrophils # Man Lymphocytes # (Manual) Monocytes # (Manual) Eosinophils # (Manual) Fibrinogen dRVVT Confirm Interp Factor V Activity POC ABG pH POC ABG pCO2 POC ABG pO2 Sodium 134 L Potassium Chloride Carbon Dioxide 18 L BUN Creatinine 1.8 H Glucose 192 H POC Glucose 175 H Lactic Acid Calcium Phosphorus Magnesium Direct Bilirubin C-Reactive Protein Total Protein Albumin Triglycerides HDL Cholesterol Urine WBC (Auto) Urine Creatinine Urine Total Protein Vancomycin Trough Rheumatoid Factor Complement C4 Crossmatch 09/05/16 09/05/16 09/05/16 11:38 17:48 23:22 WBC RBC Hgb Hct MCV MCH MCHC RDW Plt Count Lymph % (Auto) Barron % (Auto) Lymph # Barron # Seg Neutrophils % Seg Neuts % (Manual) Lymphocytes % (Manual) Monocytes % (Manual) Eosinophils % (Manual) Basophils % (Manual) Seg Neutrophils # Seg Neutrophils # Man Lymphocytes # (Manual) Monocytes # (Manual) Eosinophils # (Manual) Fibrinogen dRVVT Confirm Interp Factor V Activity POC ABG pH POC ABG pCO2 POC ABG pO2 Sodium Potassium Chloride Carbon Dioxide BUN Creatinine Glucose POC Glucose 164 H 186 H 195 H Lactic Acid Calcium Phosphorus Magnesium Direct Bilirubin C-Reactive Protein Total Protein Albumin Triglycerides HDL Cholesterol Urine WBC (Auto) Urine Creatinine Urine Total Protein Vancomycin Trough Rheumatoid Factor Complement C4 Crossmatch 09/06/16 09/06/16 09/06/16 04:12 05:59 07:32 WBC RBC Hgb Hct MCV MCH MCHC RDW Plt Count Lymph % (Auto) Barron % (Auto) Lymph # Barron # Seg Neutrophils % Seg Neuts % (Manual) Lymphocytes % (Manual) Monocytes % (Manual) Eosinophils % (Manual) Basophils % (Manual) Seg Neutrophils # Seg Neutrophils # Man Lymphocytes # (Manual) Monocytes # (Manual) Eosinophils # (Manual) Fibrinogen dRVVT Confirm Interp Factor V Activity POC ABG pH 7.514 H POC ABG pCO2 29.1 L POC ABG pO2 72 L Sodium 133 L Potassium 3.4 L Chloride 94.9 L Carbon Dioxide 19 L BUN 30 H Creatinine 2.1 H Glucose 139 H POC Glucose 146 H Lactic Acid Calcium Phosphorus Magnesium Direct Bilirubin C-Reactive Protein Total Protein Albumin Triglycerides HDL Cholesterol Urine WBC (Auto) Urine Creatinine Urine Total Protein Vancomycin Trough Rheumatoid Factor Complement C4 Crossmatch 09/06/16 09/06/16 09/06/16 11:57 17:58 19:02 WBC RBC Hgb Hct MCV MCH MCHC RDW Plt Count Lymph % (Auto) Barron % (Auto) Lymph # Barron # Seg Neutrophils % Seg Neuts % (Manual) Lymphocytes % (Manual) Monocytes % (Manual) Eosinophils % (Manual) Basophils % (Manual) Seg Neutrophils # Seg Neutrophils # Man Lymphocytes # (Manual) Monocytes # (Manual) Eosinophils # (Manual) Fibrinogen dRVVT Confirm Interp Factor V Activity POC ABG pH 7.465 H POC ABG pCO2 32.0 L POC ABG pO2 Sodium Potassium Chloride Carbon Dioxide BUN Creatinine Glucose POC Glucose 165 H 160 H Lactic Acid Calcium Phosphorus Magnesium Direct Bilirubin C-Reactive Protein Total Protein Albumin Triglycerides HDL Cholesterol Urine WBC (Auto) Urine Creatinine Urine Total Protein Vancomycin Trough Rheumatoid Factor Complement C4 Crossmatch 09/06/16 09/07/16 09/07/16 23:45 02:47 02:47 WBC RBC Hgb Hct MCV MCH MCHC RDW Plt Count Lymph % (Auto) Barron % (Auto) Lymph # Barron # Seg Neutrophils % Seg Neuts % (Manual) Lymphocytes % (Manual) Monocytes % (Manual) Eosinophils % (Manual) Basophils % (Manual) Seg Neutrophils # Seg Neutrophils # Man Lymphocytes # (Manual) Monocytes # (Manual) Eosinophils # (Manual) Fibrinogen dRVVT Confirm Interp Factor V Activity POC ABG pH POC ABG pCO2 POC ABG pO2 Sodium Potassium Chloride Carbon Dioxide BUN Creatinine Glucose POC Glucose 204 H Lactic Acid Calcium Phosphorus Magnesium Direct Bilirubin C-Reactive Protein Total Protein Albumin Triglycerides HDL Cholesterol Urine WBC (Auto) 68.0 H Urine Creatinine 106.1 H Urine Total Protein Vancomycin Trough Rheumatoid Factor Complement C4 Crossmatch 09/07/16 09/07/16 09/07/16 04:50 06:19 06:39 WBC RBC Hgb Hct MCV MCH MCHC RDW Plt Count Lymph % (Auto) Barron % (Auto) Lymph # Barron # Seg Neutrophils % Seg Neuts % (Manual) Lymphocytes % (Manual) Monocytes % (Manual) Eosinophils % (Manual) Basophils % (Manual) Seg Neutrophils # Seg Neutrophils # Man Lymphocytes # (Manual) Monocytes # (Manual) Eosinophils # (Manual) Fibrinogen dRVVT Confirm Interp Factor V Activity POC ABG pH 7.457 H POC ABG pCO2 32.1 L POC ABG pO2 76 L Sodium 132 L Potassium Chloride 94.7 L Carbon Dioxide BUN 53 H Creatinine 2.9 H Glucose 151 H POC Glucose 149 H Lactic Acid Calcium Phosphorus Magnesium Direct Bilirubin C-Reactive Protein Total Protein Albumin Triglycerides HDL Cholesterol Urine WBC (Auto) Urine Creatinine Urine Total Protein Vancomycin Trough Rheumatoid Factor Complement C4 Crossmatch 09/07/16 09/07/16 09/07/16 09:20 11:43 11:43 WBC 19.4 H RBC Hgb 8.3 L Hct 26.4 L D MCV 72 L D MCH 22 L MCHC RDW 17.9 H Plt Count Lymph % (Auto) 8.5 L Barron % (Auto) Lymph # Barron # 1.0 H Seg Neutrophils % 85.8 H Seg Neuts % (Manual) Lymphocytes % (Manual) Monocytes % (Manual) Eosinophils % (Manual) Basophils % (Manual) Seg Neutrophils # 16.6 H Seg Neutrophils # Man Lymphocytes # (Manual) Monocytes # (Manual) Eosinophils # (Manual) Fibrinogen dRVVT Confirm Interp Factor V Activity POC ABG pH POC ABG pCO2 POC ABG pO2 Sodium 134 L Potassium Chloride 97.2 L Carbon Dioxide 20 L BUN 58 H Creatinine 2.9 H Glucose 147 H POC Glucose Lactic Acid Calcium Phosphorus 2.40 L Magnesium 2.40 H Direct Bilirubin C-Reactive Protein Total Protein 5.8 L Albumin 2.2 L Triglycerides HDL Cholesterol Urine WBC (Auto) Urine Creatinine Urine Total Protein Vancomycin Trough Rheumatoid Factor Complement C4 58 H Crossmatch 09/07/16 09/07/16 09/07/16 11:50 16:00 17:31 WBC RBC Hgb Hct MCV MCH MCHC RDW Plt Count Lymph % (Auto) Barron % (Auto) Lymph # Barron # Seg Neutrophils % Seg Neuts % (Manual) Lymphocytes % (Manual) Monocytes % (Manual) Eosinophils % (Manual) Basophils % (Manual) Seg Neutrophils # Seg Neutrophils # Man Lymphocytes # (Manual) Monocytes # (Manual) Eosinophils # (Manual) Fibrinogen dRVVT Confirm Interp Factor V Activity POC ABG pH POC ABG pCO2 POC ABG pO2 158 H Sodium Potassium Chloride Carbon Dioxide BUN Creatinine Glucose POC Glucose 175 H Lactic Acid Calcium Phosphorus Magnesium Direct Bilirubin C-Reactive Protein Total Protein Albumin Triglycerides HDL Cholesterol Urine WBC (Auto) Urine Creatinine 66.3 H Urine Total Protein Vancomycin Trough Rheumatoid Factor Complement C4 Crossmatch 09/07/16 09/08/16 09/08/16 23:50 05:46 06:18 WBC 17.8 H RBC 3.58 L Hgb 8.1 L Hct 25.5 L MCV 71 L MCH 23 L MCHC RDW 18.4 H Plt Count Lymph % (Auto) Barron % (Auto) Lymph # Barron # Seg Neutrophils % Seg Neuts % (Manual) 92.0 H Lymphocytes % (Manual) 6.0 L Monocytes % (Manual) Eosinophils % (Manual) Basophils % (Manual) Seg Neutrophils # Seg Neutrophils # Man 16.4 H Lymphocytes # (Manual) 1.1 L Monocytes # (Manual) Eosinophils # (Manual) Fibrinogen dRVVT Confirm Interp Factor V Activity POC ABG pH POC ABG pCO2 34.3 L POC ABG pO2 71 L Sodium Potassium Chloride Carbon Dioxide BUN Creatinine Glucose POC Glucose 216 H Lactic Acid Calcium Phosphorus Magnesium Direct Bilirubin C-Reactive Protein Total Protein Albumin Triglycerides HDL Cholesterol Urine WBC (Auto) Urine Creatinine Urine Total Protein Vancomycin Trough Rheumatoid Factor Complement C4 Crossmatch 09/08/16 09/08/16 09/08/16 06:18 06:51 10:55 WBC RBC Hgb Hct MCV MCH MCHC RDW Plt Count Lymph % (Auto) Barron % (Auto) Lymph # Barron # Seg Neutrophils % Seg Neuts % (Manual) Lymphocytes % (Manual) Monocytes % (Manual) Eosinophils % (Manual) Basophils % (Manual) Seg Neutrophils # Seg Neutrophils # Man Lymphocytes # (Manual) Monocytes # (Manual) Eosinophils # (Manual) Fibrinogen dRVVT Confirm Interp Factor V Activity POC ABG pH POC ABG pCO2 POC ABG pO2 Sodium 133 L Potassium Chloride 96.9 L Carbon Dioxide 20 L BUN 63 H Creatinine 2.7 H Glucose 195 H POC Glucose 204 H 169 H Lactic Acid Calcium Phosphorus Magnesium Direct Bilirubin C-Reactive Protein Total Protein Albumin Triglycerides HDL Cholesterol Urine WBC (Auto) Urine Creatinine Urine Total Protein Vancomycin Trough Rheumatoid Factor Complement C4 Crossmatch 09/08/16 09/08/16 09/08/16 11:48 11:48 11:48 WBC RBC Hgb Hct MCV MCH MCHC RDW Plt Count Lymph % (Auto) Barron % (Auto) Lymph # Barron # Seg Neutrophils % Seg Neuts % (Manual) Lymphocytes % (Manual) Monocytes % (Manual) Eosinophils % (Manual) Basophils % (Manual) Seg Neutrophils # Seg Neutrophils # Man Lymphocytes # (Manual) Monocytes # (Manual) Eosinophils # (Manual) Fibrinogen 750 H dRVVT Confirm Interp Factor V Activity POC ABG pH POC ABG pCO2 POC ABG pO2 Sodium Potassium Chloride Carbon Dioxide BUN Creatinine Glucose POC Glucose Lactic Acid Calcium Phosphorus Magnesium Direct Bilirubin C-Reactive Protein 15.70 H Total Protein Albumin Triglycerides HDL Cholesterol Urine WBC (Auto) Urine Creatinine Urine Total Protein Vancomycin Trough Rheumatoid Factor 24 H Complement C4 Crossmatch 09/08/16 09/08/16 09/09/16 15:35 18:25 00:24 WBC RBC Hgb Hct MCV MCH MCHC RDW Plt Count Lymph % (Auto) Barron % (Auto) Lymph # Barron # Seg Neutrophils % Seg Neuts % (Manual) Lymphocytes % (Manual) Monocytes % (Manual) Eosinophils % (Manual) Basophils % (Manual) Seg Neutrophils # Seg Neutrophils # Man Lymphocytes # (Manual) Monocytes # (Manual) Eosinophils # (Manual) Fibrinogen dRVVT Confirm Interp Factor V Activity 182 H POC ABG pH POC ABG pCO2 POC ABG pO2 Sodium Potassium Chloride Carbon Dioxide BUN Creatinine Glucose POC Glucose 184 H 216 H Lactic Acid Calcium Phosphorus Magnesium Direct Bilirubin C-Reactive Protein Total Protein Albumin Triglycerides HDL Cholesterol Urine WBC (Auto) Urine Creatinine Urine Total Protein Vancomycin Trough Rheumatoid Factor Complement C4 Crossmatch 09/09/16 09/09/16 09/09/16 03:00 03:00 04:04 WBC 27.9 H RBC Hgb 8.7 L Hct 28.1 L MCV 72 L MCH 22 L MCHC RDW 18.4 H Plt Count 485 H Lymph % (Auto) Barron % (Auto) Lymph # Barron # Seg Neutrophils % Seg Neuts % (Manual) 77.0 H Lymphocytes % (Manual) 9.0 L Monocytes % (Manual) Eosinophils % (Manual) Basophils % (Manual) Seg Neutrophils # Seg Neutrophils # Man 21.5 H Lymphocytes # (Manual) Monocytes # (Manual) 2.0 H Eosinophils # (Manual) Fibrinogen dRVVT Confirm Interp Factor V Activity POC ABG pH POC ABG pCO2 POC ABG pO2 121 H Sodium 135 L Potassium Chloride 96.3 L Carbon Dioxide 21 L BUN 83 H Creatinine 3.0 H Glucose 135 H POC Glucose Lactic Acid Calcium Phosphorus Magnesium Direct Bilirubin C-Reactive Protein Total Protein Albumin Triglycerides HDL Cholesterol Urine WBC (Auto) Urine Creatinine Urine Total Protein Vancomycin Trough Rheumatoid Factor Complement C4 Crossmatch 09/09/16 09/09/16 09/09/16 05:41 11:55 14:13 WBC RBC Hgb Hct MCV MCH MCHC RDW Plt Count Lymph % (Auto) Barron % (Auto) Lymph # Barron # Seg Neutrophils % Seg Neuts % (Manual) Lymphocytes % (Manual) Monocytes % (Manual) Eosinophils % (Manual) Basophils % (Manual) Seg Neutrophils # Seg Neutrophils # Man Lymphocytes # (Manual) Monocytes # (Manual) Eosinophils # (Manual) Fibrinogen dRVVT Confirm Interp Factor V Activity POC ABG pH POC ABG pCO2 POC ABG pO2 Sodium Potassium Chloride Carbon Dioxide BUN Creatinine Glucose POC Glucose 155 H 186 H Lactic Acid Calcium Phosphorus Magnesium Direct Bilirubin C-Reactive Protein Total Protein Albumin Triglycerides HDL Cholesterol Urine WBC (Auto) 25.0 H Urine Creatinine Urine Total Protein Vancomycin Trough Rheumatoid Factor Complement C4 Crossmatch 09/09/16 09/09/16 09/10/16 17:33 23:13 05:09 WBC RBC Hgb Hct MCV MCH MCHC RDW Plt Count Lymph % (Auto) Barron % (Auto) Lymph # Barron # Seg Neutrophils % Seg Neuts % (Manual) Lymphocytes % (Manual) Monocytes % (Manual) Eosinophils % (Manual) Basophils % (Manual) Seg Neutrophils # Seg Neutrophils # Man Lymphocytes # (Manual) Monocytes # (Manual) Eosinophils # (Manual) Fibrinogen dRVVT Confirm Interp Factor V Activity POC ABG pH POC ABG pCO2 POC ABG pO2 74 L Sodium Potassium Chloride Carbon Dioxide BUN Creatinine Glucose POC Glucose 211 H 215 H Lactic Acid Calcium Phosphorus Magnesium Direct Bilirubin C-Reactive Protein Total Protein Albumin Triglycerides HDL Cholesterol Urine WBC (Auto) Urine Creatinine Urine Total Protein Vancomycin Trough Rheumatoid Factor Complement C4 Crossmatch 09/10/16 09/10/16 09/10/16 05:17 05:17 11:31 WBC 15.8 H RBC 3.25 L Hgb 7.3 L Hct 22.9 L MCV 71 L MCH 23 L MCHC RDW 18.4 H Plt Count Lymph % (Auto) Barron % (Auto) Lymph # Barron # Seg Neutrophils % Seg Neuts % (Manual) 91.0 H Lymphocytes % (Manual) 4.0 L Monocytes % (Manual) Eosinophils % (Manual) Basophils % (Manual) Seg Neutrophils # Seg Neutrophils # Man 14.4 H Lymphocytes # (Manual) 0.6 L Monocytes # (Manual) Eosinophils # (Manual) Fibrinogen dRVVT Confirm Interp Factor V Activity POC ABG pH POC ABG pCO2 POC ABG pO2 Sodium Potassium Chloride Carbon Dioxide 21 L BUN 93 H Creatinine 2.9 H Glucose 146 H POC Glucose 188 H Lactic Acid Calcium 8.1 L Phosphorus Magnesium Direct Bilirubin C-Reactive Protein Total Protein Albumin Triglycerides HDL Cholesterol Urine WBC (Auto) Urine Creatinine Urine Total Protein Vancomycin Trough Rheumatoid Factor Complement C4 Crossmatch 09/10/16 09/10/16 09/10/16 13:17 17:20 23:32 WBC RBC Hgb Hct MCV MCH MCHC RDW Plt Count Lymph % (Auto) Barron % (Auto) Lymph # Barron # Seg Neutrophils % Seg Neuts % (Manual) Lymphocytes % (Manual) Monocytes % (Manual) Eosinophils % (Manual) Basophils % (Manual) Seg Neutrophils # Seg Neutrophils # Man Lymphocytes # (Manual) Monocytes # (Manual) Eosinophils # (Manual) Fibrinogen dRVVT Confirm Interp Factor V Activity POC ABG pH POC ABG pCO2 POC ABG pO2 Sodium Potassium Chloride Carbon Dioxide BUN Creatinine Glucose POC Glucose 199 H 186 H Lactic Acid Calcium Phosphorus Magnesium Direct Bilirubin C-Reactive Protein Total Protein Albumin Triglycerides HDL Cholesterol Urine WBC (Auto) Urine Creatinine Urine Total Protein Vancomycin Trough Rheumatoid Factor Complement C4 Crossmatch See Detail 09/11/16 09/11/16 09/11/16 05:10 05:10 05:17 WBC 28.4 H RBC Hgb 9.2 L Hct 29.3 L D MCV 73 L MCH 23 L MCHC RDW 18.9 H Plt Count 452 H Lymph % (Auto) Barron % (Auto) Lymph # Barron # Seg Neutrophils % Seg Neuts % (Manual) 89.5 H Lymphocytes % (Manual) 2.0 L Monocytes % (Manual) Eosinophils % (Manual) Basophils % (Manual) Seg Neutrophils # Seg Neutrophils # Man 25.4 H Lymphocytes # (Manual) 0.6 L Monocytes # (Manual) 1.3 H Eosinophils # (Manual) Fibrinogen dRVVT Confirm Interp Factor V Activity POC ABG pH POC ABG pCO2 POC ABG pO2 Sodium 136 L Potassium Chloride Carbon Dioxide 18 L BUN 107 H Creatinine 2.6 H Glucose 187 H POC Glucose 230 H Lactic Acid Calcium 8.3 L Phosphorus Magnesium Direct Bilirubin C-Reactive Protein Total Protein Albumin Triglycerides HDL Cholesterol Urine WBC (Auto) Urine Creatinine Urine Total Protein Vancomycin Trough Rheumatoid Factor Complement C4 Crossmatch 09/11/16 09/11/16 09/11/16 05:55 12:02 17:32 WBC RBC Hgb Hct MCV MCH MCHC RDW Plt Count Lymph % (Auto) Barron % (Auto) Lymph # Barron # Seg Neutrophils % Seg Neuts % (Manual) Lymphocytes % (Manual) Monocytes % (Manual) Eosinophils % (Manual) Basophils % (Manual) Seg Neutrophils # Seg Neutrophils # Man Lymphocytes # (Manual) Monocytes # (Manual) Eosinophils # (Manual) Fibrinogen dRVVT Confirm Interp Factor V Activity POC ABG pH POC ABG pCO2 33.8 L POC ABG pO2 Sodium Potassium Chloride Carbon Dioxide BUN Creatinine Glucose POC Glucose 191 H 239 H Lactic Acid Calcium Phosphorus Magnesium Direct Bilirubin C-Reactive Protein Total Protein Albumin Triglycerides HDL Cholesterol Urine WBC (Auto) Urine Creatinine Urine Total Protein Vancomycin Trough Rheumatoid Factor Complement C4 Crossmatch 09/11/16 09/12/16 09/12/16 23:52 05:09 05:32 WBC RBC Hgb Hct MCV MCH MCHC RDW Plt Count Lymph % (Auto) Barron % (Auto) Lymph # Barron # Seg Neutrophils % Seg Neuts % (Manual) Lymphocytes % (Manual) Monocytes % (Manual) Eosinophils % (Manual) Basophils % (Manual) Seg Neutrophils # Seg Neutrophils # Man Lymphocytes # (Manual) Monocytes # (Manual) Eosinophils # (Manual) Fibrinogen dRVVT Confirm Interp Factor V Activity POC ABG pH POC ABG pCO2 34.6 L POC ABG pO2 Sodium Potassium Chloride Carbon Dioxide BUN Creatinine Glucose POC Glucose 265 H 184 H Lactic Acid Calcium Phosphorus Magnesium Direct Bilirubin C-Reactive Protein Total Protein Albumin Triglycerides HDL Cholesterol Urine WBC (Auto) Urine Creatinine Urine Total Protein Vancomycin Trough Rheumatoid Factor Complement C4 Crossmatch 09/12/16 09/12/16 09/12/16 06:45 06:45 07:22 WBC 31.7 H RBC 3.54 L Hgb 8.3 L Hct 25.9 L MCV 73 L MCH 23 L MCHC RDW 18.9 H Plt Count Lymph % (Auto) Barron % (Auto) Lymph # Barron # Seg Neutrophils % Seg Neuts % (Manual) 88.5 H Lymphocytes % (Manual) 4.5 L Monocytes % (Manual) Eosinophils % (Manual) Basophils % (Manual) Seg Neutrophils # Seg Neutrophils # Man 28.1 H Lymphocytes # (Manual) Monocytes # (Manual) 1.0 H Eosinophils # (Manual) Fibrinogen dRVVT Confirm Interp Factor V Activity POC ABG pH POC ABG pCO2 POC ABG pO2 Sodium Potassium Chloride Carbon Dioxide 20 L BUN 115 H Creatinine 2.7 H Glucose 165 H POC Glucose Lactic Acid Calcium 8.0 L Phosphorus Magnesium Direct Bilirubin C-Reactive Protein Total Protein Albumin Triglycerides 217 H HDL Cholesterol Urine WBC (Auto) Urine Creatinine Urine Total Protein Vancomycin Trough Rheumatoid Factor Complement C4 Crossmatch 09/12/16 09/12/16 09/12/16 07:22 09:59 12:21 WBC RBC Hgb Hct MCV MCH MCHC RDW Plt Count Lymph % (Auto) Barron % (Auto) Lymph # Barron # Seg Neutrophils % Seg Neuts % (Manual) Lymphocytes % (Manual) Monocytes % (Manual) Eosinophils % (Manual) Basophils % (Manual) Seg Neutrophils # Seg Neutrophils # Man Lymphocytes # (Manual) Monocytes # (Manual) Eosinophils # (Manual) Fibrinogen dRVVT Confirm Interp Positive H Factor V Activity POC ABG pH POC ABG pCO2 POC ABG pO2 Sodium Potassium Chloride Carbon Dioxide BUN Creatinine Glucose POC Glucose 224 H Lactic Acid Calcium Phosphorus Magnesium Direct Bilirubin C-Reactive Protein 1.70 H Total Protein Albumin Triglycerides HDL Cholesterol Urine WBC (Auto) Urine Creatinine Urine Total Protein Vancomycin Trough Rheumatoid Factor Complement C4 Crossmatch 09/12/16 09/12/16 09/13/16 16:51 23:28 04:00 WBC 45.0 H* RBC Hgb 9.4 L Hct MCV 75 L MCH 23 L MCHC RDW 19.0 H Plt Count 470 H Lymph % (Auto) Barron % (Auto) Lymph # Barron # Seg Neutrophils % Seg Neuts % (Manual) 89.0 H Lymphocytes % (Manual) 5.0 L Monocytes % (Manual) Eosinophils % (Manual) Basophils % (Manual) Seg Neutrophils # Seg Neutrophils # Man 40.1 H Lymphocytes # (Manual) Monocytes # (Manual) Eosinophils # (Manual) Fibrinogen dRVVT Confirm Interp Factor V Activity POC ABG pH POC ABG pCO2 POC ABG pO2 Sodium Potassium Chloride Carbon Dioxide BUN Creatinine Glucose POC Glucose 169 H 150 H Lactic Acid Calcium Phosphorus Magnesium Direct Bilirubin C-Reactive Protein Total Protein Albumin Triglycerides HDL Cholesterol Urine WBC (Auto) Urine Creatinine Urine Total Protein Vancomycin Trough Rheumatoid Factor Complement C4 Crossmatch 09/13/16 09/13/16 09/13/16 04:00 11:26 17:31 WBC RBC Hgb Hct MCV MCH MCHC RDW Plt Count Lymph % (Auto) Barron % (Auto) Lymph # Barron # Seg Neutrophils % Seg Neuts % (Manual) Lymphocytes % (Manual) Monocytes % (Manual) Eosinophils % (Manual) Basophils % (Manual) Seg Neutrophils # Seg Neutrophils # Man Lymphocytes # (Manual) Monocytes # (Manual) Eosinophils # (Manual) Fibrinogen dRVVT Confirm Interp Factor V Activity POC ABG pH POC ABG pCO2 POC ABG pO2 Sodium Potassium Chloride Carbon Dioxide 20 L BUN 116 H Creatinine 3.0 H Glucose 172 H POC Glucose 140 H 183 H Lactic Acid Calcium Phosphorus Magnesium Direct Bilirubin C-Reactive Protein Total Protein 6.2 L Albumin 2.9 L Triglycerides HDL Cholesterol Urine WBC (Auto) Urine Creatinine Urine Total Protein Vancomycin Trough Rheumatoid Factor Complement C4 Crossmatch 09/13/16 09/14/16 09/14/16 23:23 04:06 04:07 WBC 29.4 H RBC Hgb 8.9 L Hct 27.3 L MCV 75 L MCH 24 L MCHC RDW 19.1 H Plt Count Lymph % (Auto) Barron % (Auto) Lymph # Barron # Seg Neutrophils % Seg Neuts % (Manual) 84.0 H Lymphocytes % (Manual) 6.0 L Monocytes % (Manual) 9.0 H Eosinophils % (Manual) Basophils % (Manual) Seg Neutrophils # Seg Neutrophils # Man 24.7 H Lymphocytes # (Manual) Monocytes # (Manual) 2.6 H Eosinophils # (Manual) Fibrinogen dRVVT Confirm Interp Factor V Activity POC ABG pH 7.342 L POC ABG pCO2 POC ABG pO2 116 H Sodium Potassium Chloride Carbon Dioxide BUN Creatinine Glucose POC Glucose 154 H Lactic Acid Calcium Phosphorus Magnesium Direct Bilirubin C-Reactive Protein Total Protein Albumin Triglycerides HDL Cholesterol Urine WBC (Auto) Urine Creatinine Urine Total Protein Vancomycin Trough Rheumatoid Factor Complement C4 Crossmatch 09/14/16 09/14/16 09/14/16 04:07 05:29 12:19 WBC RBC Hgb Hct MCV MCH MCHC RDW Plt Count Lymph % (Auto) Barron % (Auto) Lymph # Barron # Seg Neutrophils % Seg Neuts % (Manual) Lymphocytes % (Manual) Monocytes % (Manual) Eosinophils % (Manual) Basophils % (Manual) Seg Neutrophils # Seg Neutrophils # Man Lymphocytes # (Manual) Monocytes # (Manual) Eosinophils # (Manual) Fibrinogen dRVVT Confirm Interp Factor V Activity POC ABG pH POC ABG pCO2 POC ABG pO2 Sodium 136 L Potassium Chloride Carbon Dioxide 18 L BUN 121 H Creatinine 2.8 H Glucose 214 H POC Glucose 239 H 181 H Lactic Acid Calcium Phosphorus Magnesium Direct Bilirubin C-Reactive Protein Total Protein Albumin Triglycerides HDL Cholesterol Urine WBC (Auto) Urine Creatinine Urine Total Protein Vancomycin Trough Rheumatoid Factor Complement C4 Crossmatch 09/14/16 09/14/16 09/15/16 18:12 23:37 05:00 WBC 26.1 H RBC 3.05 L Hgb 7.2 L Hct 22.9 L MCV 75 L MCH 24 L MCHC RDW 19.0 H Plt Count Lymph % (Auto) Barron % (Auto) Lymph # Barron # Seg Neutrophils % Seg Neuts % (Manual) Lymphocytes % (Manual) Monocytes % (Manual) Eosinophils % (Manual) Basophils % (Manual) Seg Neutrophils # Seg Neutrophils # Man Lymphocytes # (Manual) Monocytes # (Manual) Eosinophils # (Manual) Fibrinogen dRVVT Confirm Interp Factor V Activity POC ABG pH POC ABG pCO2 POC ABG pO2 Sodium Potassium Chloride Carbon Dioxide BUN Creatinine Glucose POC Glucose 266 H 154 H Lactic Acid Calcium Phosphorus Magnesium Direct Bilirubin C-Reactive Protein Total Protein Albumin Triglycerides HDL Cholesterol Urine WBC (Auto) Urine Creatinine Urine Total Protein Vancomycin Trough Rheumatoid Factor Complement C4 Crossmatch 09/15/16 09/15/16 09/15/16 05:00 05:17 12:45 WBC RBC Hgb Hct MCV MCH MCHC RDW Plt Count Lymph % (Auto) Barron % (Auto) Lymph # Barron # Seg Neutrophils % Seg Neuts % (Manual) Lymphocytes % (Manual) Monocytes % (Manual) Eosinophils % (Manual) Basophils % (Manual) Seg Neutrophils # Seg Neutrophils # Man Lymphocytes # (Manual) Monocytes # (Manual) Eosinophils # (Manual) Fibrinogen dRVVT Confirm Interp Factor V Activity POC ABG pH POC ABG pCO2 POC ABG pO2 Sodium Potassium 5.2 H Chloride Carbon Dioxide 18 L BUN 139 H Creatinine 3.7 H Glucose 227 H POC Glucose 226 H 244 H Lactic Acid Calcium 8.3 L Phosphorus Magnesium Direct Bilirubin C-Reactive Protein Total Protein Albumin Triglycerides HDL Cholesterol Urine WBC (Auto) Urine Creatinine Urine Total Protein Vancomycin Trough Rheumatoid Factor Complement C4 Crossmatch 09/15/16 09/15/16 09/15/16 14:32 17:33 23:35 WBC RBC Hgb Hct MCV MCH MCHC RDW Plt Count Lymph % (Auto) Barron % (Auto) Lymph # Barron # Seg Neutrophils % Seg Neuts % (Manual) Lymphocytes % (Manual) Monocytes % (Manual) Eosinophils % (Manual) Basophils % (Manual) Seg Neutrophils # Seg Neutrophils # Man Lymphocytes # (Manual) Monocytes # (Manual) Eosinophils # (Manual) Fibrinogen dRVVT Confirm Interp Factor V Activity POC ABG pH POC ABG pCO2 27.7 L POC ABG pO2 120 H Sodium Potassium Chloride Carbon Dioxide BUN Creatinine Glucose POC Glucose 232 H 167 H Lactic Acid Calcium Phosphorus Magnesium Direct Bilirubin C-Reactive Protein Total Protein Albumin Triglycerides HDL Cholesterol Urine WBC (Auto) Urine Creatinine Urine Total Protein Vancomycin Trough Rheumatoid Factor Complement C4 Crossmatch 09/16/16 09/16/16 09/16/16 03:58 10:27 10:27 WBC 19.0 H RBC 2.77 L Hgb 6.5 L Hct 20.9 L MCV 76 L MCH 23 L MCHC RDW 19.3 H Plt Count Lymph % (Auto) 11.0 L Barron % (Auto) Lymph # Barron # 1.1 H Seg Neutrophils % 82.5 H Seg Neuts % (Manual) Lymphocytes % (Manual) Monocytes % (Manual) Eosinophils % (Manual) Basophils % (Manual) Seg Neutrophils # 15.7 H Seg Neutrophils # Man Lymphocytes # (Manual) Monocytes # (Manual) Eosinophils # (Manual) Fibrinogen dRVVT Confirm Interp Factor V Activity POC ABG pH POC ABG pCO2 POC ABG pO2 Sodium Potassium Chloride 109.3 H Carbon Dioxide 18 L BUN 139 H Creatinine 4.1 H Glucose 144 H POC Glucose 146 H Lactic Acid Calcium 8.1 L Phosphorus Magnesium Direct Bilirubin C-Reactive Protein Total Protein Albumin Triglycerides HDL Cholesterol Urine WBC (Auto) Urine Creatinine Urine Total Protein Vancomycin Trough Rheumatoid Factor Complement C4 Crossmatch 09/16/16 09/16/16 09/16/16 12:04 12:10 13:55 WBC RBC Hgb Hct MCV MCH MCHC RDW Plt Count Lymph % (Auto) Barron % (Auto) Lymph # Barron # Seg Neutrophils % Seg Neuts % (Manual) Lymphocytes % (Manual) Monocytes % (Manual) Eosinophils % (Manual) Basophils % (Manual) Seg Neutrophils # Seg Neutrophils # Man Lymphocytes # (Manual) Monocytes # (Manual) Eosinophils # (Manual) Fibrinogen dRVVT Confirm Interp Factor V Activity POC ABG pH POC ABG pCO2 32.9 L POC ABG pO2 Sodium Potassium Chloride Carbon Dioxide BUN Creatinine Glucose POC Glucose 185 H Lactic Acid Calcium Phosphorus Magnesium Direct Bilirubin C-Reactive Protein Total Protein Albumin Triglycerides HDL Cholesterol Urine WBC (Auto) Urine Creatinine Urine Total Protein Vancomycin Trough Rheumatoid Factor Complement C4 Crossmatch See Detail 09/16/16 09/16/16 09/16/16 17:55 19:19 23:48 WBC RBC Hgb Hct MCV MCH MCHC RDW Plt Count Lymph % (Auto) Barron % (Auto) Lymph # Barron # Seg Neutrophils % Seg Neuts % (Manual) Lymphocytes % (Manual) Monocytes % (Manual) Eosinophils % (Manual) Basophils % (Manual) Seg Neutrophils # Seg Neutrophils # Man Lymphocytes # (Manual) Monocytes # (Manual) Eosinophils # (Manual) Fibrinogen dRVVT Confirm Interp Factor V Activity POC ABG pH POC ABG pCO2 POC ABG pO2 Sodium Potassium Chloride Carbon Dioxide BUN Creatinine Glucose POC Glucose 222 H 107 H Lactic Acid Calcium Phosphorus Magnesium Direct Bilirubin C-Reactive Protein Total Protein Albumin Triglycerides HDL Cholesterol Urine WBC (Auto) Urine Creatinine 47.4 H Urine Total Protein 16 H Vancomycin Trough Rheumatoid Factor Complement C4 Crossmatch 09/17/16 09/17/16 09/17/16 03:45 03:45 04:55 WBC 19.6 H RBC 3.41 L Hgb 8.5 L Hct 26.7 L MCV 78 L MCH 25 L MCHC RDW 19.9 H Plt Count Lymph % (Auto) 9.3 L Barron % (Auto) Lymph # Barron # 1.2 H Seg Neutrophils % 83.9 H Seg Neuts % (Manual) Lymphocytes % (Manual) Monocytes % (Manual) Eosinophils % (Manual) Basophils % (Manual) Seg Neutrophils # 16.4 H Seg Neutrophils # Man Lymphocytes # (Manual) Monocytes # (Manual) Eosinophils # (Manual) Fibrinogen dRVVT Confirm Interp Factor V Activity POC ABG pH POC ABG pCO2 POC ABG pO2 Sodium 146 H Potassium 5.1 H Chloride 110.9 H Carbon Dioxide 16 L BUN 146 H Creatinine 4.0 H Glucose 108 H POC Glucose 133 H Lactic Acid Calcium Phosphorus Magnesium 3.00 H Direct Bilirubin C-Reactive Protein Total Protein Albumin Triglycerides HDL Cholesterol Urine WBC (Auto) Urine Creatinine Urine Total Protein Vancomycin Trough Rheumatoid Factor Complement C4 Crossmatch 09/17/16 09/17/16 09/17/16 11:15 17:33 23:47 WBC RBC Hgb Hct MCV MCH MCHC RDW Plt Count Lymph % (Auto) Barron % (Auto) Lymph # Barron # Seg Neutrophils % Seg Neuts % (Manual) Lymphocytes % (Manual) Monocytes % (Manual) Eosinophils % (Manual) Basophils % (Manual) Seg Neutrophils # Seg Neutrophils # Man Lymphocytes # (Manual) Monocytes # (Manual) Eosinophils # (Manual) Fibrinogen dRVVT Confirm Interp Factor V Activity POC ABG pH POC ABG pCO2 POC ABG pO2 Sodium Potassium Chloride Carbon Dioxide BUN Creatinine Glucose POC Glucose 176 H 246 H 148 H Lactic Acid Calcium Phosphorus Magnesium Direct Bilirubin C-Reactive Protein Total Protein Albumin Triglycerides HDL Cholesterol Urine WBC (Auto) Urine Creatinine Urine Total Protein Vancomycin Trough Rheumatoid Factor Complement C4 Crossmatch 09/18/16 09/18/16 09/18/16 05:33 08:31 08:31 WBC 18.0 H RBC 3.17 L Hgb 9.0 L Hct 25.7 L MCV MCH MCHC 35 H RDW 20.4 H Plt Count Lymph % (Auto) Barron % (Auto) Lymph # Barron # Seg Neutrophils % Seg Neuts % (Manual) Lymphocytes % (Manual) Monocytes % (Manual) Eosinophils % (Manual) Basophils % (Manual) Seg Neutrophils # Seg Neutrophils # Man Lymphocytes # (Manual) Monocytes # (Manual) Eosinophils # (Manual) Fibrinogen dRVVT Confirm Interp Factor V Activity POC ABG pH POC ABG pCO2 POC ABG pO2 Sodium Potassium Chloride Carbon Dioxide 15 L BUN 124 H Creatinine 3.8 H Glucose POC Glucose 120 H Lactic Acid Calcium 8.1 L Phosphorus Magnesium Direct Bilirubin C-Reactive Protein Total Protein Albumin Triglycerides HDL Cholesterol Urine WBC (Auto) Urine Creatinine Urine Total Protein Vancomycin Trough Rheumatoid Factor Complement C4 Crossmatch 09/18/16 09/18/16 09/18/16 12:03 15:34 17:50 WBC RBC Hgb Hct MCV MCH MCHC RDW Plt Count Lymph % (Auto) Barron % (Auto) Lymph # Barron # Seg Neutrophils % Seg Neuts % (Manual) Lymphocytes % (Manual) Monocytes % (Manual) Eosinophils % (Manual) Basophils % (Manual) Seg Neutrophils # Seg Neutrophils # Man Lymphocytes # (Manual) Monocytes # (Manual) Eosinophils # (Manual) Fibrinogen dRVVT Confirm Interp Factor V Activity POC ABG pH POC ABG pCO2 25.7 L POC ABG pO2 66 L Sodium Potassium Chloride Carbon Dioxide BUN Creatinine Glucose POC Glucose 156 H 220 H Lactic Acid Calcium Phosphorus Magnesium Direct Bilirubin C-Reactive Protein Total Protein Albumin Triglycerides HDL Cholesterol Urine WBC (Auto) Urine Creatinine Urine Total Protein Vancomycin Trough Rheumatoid Factor Complement C4 Crossmatch 09/19/16 09/19/16 09/19/16 06:21 09:50 09:50 WBC 17.1 H RBC 3.49 L Hgb 9.0 L Hct 28.1 L MCV MCH 26 L MCHC RDW 20.8 H Plt Count Lymph % (Auto) 11.5 L Barron % (Auto) 7.5 H Lymph # Barron # 1.3 H Seg Neutrophils % 79.8 H Seg Neuts % (Manual) Lymphocytes % (Manual) Monocytes % (Manual) Eosinophils % (Manual) Basophils % (Manual) Seg Neutrophils # 13.7 H Seg Neutrophils # Man Lymphocytes # (Manual) Monocytes # (Manual) Eosinophils # (Manual) Fibrinogen dRVVT Confirm Interp Factor V Activity POC ABG pH POC ABG pCO2 POC ABG pO2 Sodium Potassium Chloride 108.6 H Carbon Dioxide 15 L BUN 125 H Creatinine 4.1 H Glucose 124 H POC Glucose 119 H Lactic Acid Calcium Phosphorus Magnesium Direct Bilirubin C-Reactive Protein Total Protein Albumin Triglycerides HDL Cholesterol Urine WBC (Auto) Urine Creatinine Urine Total Protein Vancomycin Trough Rheumatoid Factor Complement C4 Crossmatch 09/19/16 09/19/16 09/19/16 11:25 17:53 23:36 WBC RBC Hgb Hct MCV MCH MCHC RDW Plt Count Lymph % (Auto) Barron % (Auto) Lymph # Barron # Seg Neutrophils % Seg Neuts % (Manual) Lymphocytes % (Manual) Monocytes % (Manual) Eosinophils % (Manual) Basophils % (Manual) Seg Neutrophils # Seg Neutrophils # Man Lymphocytes # (Manual) Monocytes # (Manual) Eosinophils # (Manual) Fibrinogen dRVVT Confirm Interp Factor V Activity POC ABG pH POC ABG pCO2 POC ABG pO2 Sodium Potassium Chloride Carbon Dioxide BUN Creatinine Glucose POC Glucose 160 H 245 H 121 H Lactic Acid Calcium Phosphorus Magnesium Direct Bilirubin C-Reactive Protein Total Protein Albumin Triglycerides HDL Cholesterol Urine WBC (Auto) Urine Creatinine Urine Total Protein Vancomycin Trough Rheumatoid Factor Complement C4 Crossmatch 09/20/16 09/20/16 09/20/16 04:10 04:10 04:10 WBC 17.0 H RBC 3.21 L Hgb 8.2 L Hct 25.5 L MCV MCH 26 L MCHC RDW 20.9 H Plt Count Lymph % (Auto) Barron % (Auto) Lymph # Barron # Seg Neutrophils % Seg Neuts % (Manual) Lymphocytes % (Manual) Monocytes % (Manual) Eosinophils % (Manual) Basophils % (Manual) Seg Neutrophils # Seg Neutrophils # Man Lymphocytes # (Manual) Monocytes # (Manual) Eosinophils # (Manual) Fibrinogen dRVVT Confirm Interp Factor V Activity POC ABG pH POC ABG pCO2 POC ABG pO2 Sodium Potassium Chloride 111.0 H Carbon Dioxide 16 L BUN 129 H Creatinine 3.7 H Glucose 115 H POC Glucose Lactic Acid Calcium 8.2 L Phosphorus Magnesium Direct Bilirubin C-Reactive Protein Total Protein Albumin Triglycerides 243 H HDL Cholesterol Urine WBC (Auto) Urine Creatinine Urine Total Protein Vancomycin Trough Rheumatoid Factor Complement C4 Crossmatch 09/20/16 09/20/16 09/20/16 05:40 11:52 16:50 WBC RBC Hgb Hct MCV MCH MCHC RDW Plt Count Lymph % (Auto) Barron % (Auto) Lymph # Barron # Seg Neutrophils % Seg Neuts % (Manual) Lymphocytes % (Manual) Monocytes % (Manual) Eosinophils % (Manual) Basophils % (Manual) Seg Neutrophils # Seg Neutrophils # Man Lymphocytes # (Manual) Monocytes # (Manual) Eosinophils # (Manual) Fibrinogen dRVVT Confirm Interp Factor V Activity POC ABG pH POC ABG pCO2 POC ABG pO2 Sodium Potassium Chloride Carbon Dioxide BUN Creatinine Glucose POC Glucose 131 H 183 H 236 H Lactic Acid Calcium Phosphorus Magnesium Direct Bilirubin C-Reactive Protein Total Protein Albumin Triglycerides HDL Cholesterol Urine WBC (Auto) Urine Creatinine Urine Total Protein Vancomycin Trough Rheumatoid Factor Complement C4 Crossmatch 09/20/16 09/21/16 09/21/16 23:51 03:30 04:44 WBC RBC Hgb Hct MCV MCH MCHC RDW Plt Count Lymph % (Auto) Barron % (Auto) Lymph # Barron # Seg Neutrophils % Seg Neuts % (Manual) Lymphocytes % (Manual) Monocytes % (Manual) Eosinophils % (Manual) Basophils % (Manual) Seg Neutrophils # Seg Neutrophils # Man Lymphocytes # (Manual) Monocytes # (Manual) Eosinophils # (Manual) Fibrinogen dRVVT Confirm Interp Factor V Activity POC ABG pH POC ABG pCO2 POC ABG pO2 Sodium Potassium Chloride Carbon Dioxide BUN Creatinine Glucose POC Glucose 114 H 141 H Lactic Acid Calcium Phosphorus Magnesium 2.70 H Direct Bilirubin C-Reactive Protein Total Protein Albumin Triglycerides HDL Cholesterol Urine WBC (Auto) Urine Creatinine Urine Total Protein Vancomycin Trough Rheumatoid Factor Complement C4 Crossmatch 09/21/16 09/21/16 09/21/16 07:45 07:45 10:01 WBC 13.8 H RBC 2.94 L Hgb 7.5 L Hct 23.5 L MCV MCH 26 L MCHC RDW 21.2 H Plt Count Lymph % (Auto) 6.9 L Barron % (Auto) 9.4 H Lymph # 0.9 L Barron # 1.3 H Seg Neutrophils % 83.2 H Seg Neuts % (Manual) Lymphocytes % (Manual) Monocytes % (Manual) Eosinophils % (Manual) Basophils % (Manual) Seg Neutrophils # 11.5 H Seg Neutrophils # Man Lymphocytes # (Manual) Monocytes # (Manual) Eosinophils # (Manual) Fibrinogen dRVVT Confirm Interp Factor V Activity POC ABG pH 7.308 L POC ABG pCO2 31.9 L POC ABG pO2 148 H Sodium 147 H Potassium Chloride 114.2 H Carbon Dioxide 15 L BUN 120 H Creatinine 3.9 H Glucose 156 H POC Glucose Lactic Acid Calcium 8.2 L Phosphorus Magnesium Direct Bilirubin C-Reactive Protein Total Protein Albumin Triglycerides HDL Cholesterol Urine WBC (Auto) Urine Creatinine Urine Total Protein Vancomycin Trough Rheumatoid Factor Complement C4 Crossmatch 09/21/16 09/21/16 09/21/16 12:00 12:03 13:00 WBC RBC Hgb Hct MCV MCH MCHC RDW Plt Count Lymph % (Auto) Barron % (Auto) Lymph # Barron # Seg Neutrophils % Seg Neuts % (Manual) Lymphocytes % (Manual) Monocytes % (Manual) Eosinophils % (Manual) Basophils % (Manual) Seg Neutrophils # Seg Neutrophils # Man Lymphocytes # (Manual) Monocytes # (Manual) Eosinophils # (Manual) Fibrinogen dRVVT Confirm Interp Factor V Activity POC ABG pH POC ABG pCO2 POC ABG pO2 Sodium Potassium Chloride Carbon Dioxide BUN Creatinine Glucose POC Glucose 163 H Lactic Acid Calcium Phosphorus Magnesium Direct Bilirubin C-Reactive Protein Total Protein Albumin Triglycerides HDL Cholesterol Urine WBC (Auto) Urine Creatinine 54.8 H Urine Total Protein Vancomycin Trough 2.3 L Rheumatoid Factor Complement C4 Crossmatch 09/21/16 09/21/16 09/22/16 16:51 23:17 06:27 WBC RBC Hgb Hct MCV MCH MCHC RDW Plt Count Lymph % (Auto) Barron % (Auto) Lymph # Barron # Seg Neutrophils % Seg Neuts % (Manual) Lymphocytes % (Manual) Monocytes % (Manual) Eosinophils % (Manual) Basophils % (Manual) Seg Neutrophils # Seg Neutrophils # Man Lymphocytes # (Manual) Monocytes # (Manual) Eosinophils # (Manual) Fibrinogen dRVVT Confirm Interp Factor V Activity POC ABG pH POC ABG pCO2 POC ABG pO2 Sodium Potassium Chloride Carbon Dioxide BUN Creatinine Glucose POC Glucose 206 H 114 H 115 H Lactic Acid Calcium Phosphorus Magnesium Direct Bilirubin C-Reactive Protein Total Protein Albumin Triglycerides HDL Cholesterol Urine WBC (Auto) Urine Creatinine Urine Total Protein Vancomycin Trough Rheumatoid Factor Complement C4 Crossmatch 09/22/16 09/22/16 09/22/16 07:50 07:50 12:00 WBC 17.8 H RBC 3.04 L Hgb 8.0 L Hct 24.7 L MCV MCH 26 L MCHC RDW 21.6 H Plt Count Lymph % (Auto) Barron % (Auto) Lymph # Barron # Seg Neutrophils % Seg Neuts % (Manual) Lymphocytes % (Manual) Monocytes % (Manual) Eosinophils % (Manual) Basophils % (Manual) Seg Neutrophils # Seg Neutrophils # Man Lymphocytes # (Manual) Monocytes # (Manual) Eosinophils # (Manual) Fibrinogen dRVVT Confirm Interp Factor V Activity POC ABG pH POC ABG pCO2 POC ABG pO2 Sodium 150 H Potassium Chloride 118.2 H Carbon Dioxide 14 L BUN 111 H Creatinine 3.7 H Glucose 157 H POC Glucose 183 H Lactic Acid Calcium Phosphorus Magnesium Direct Bilirubin C-Reactive Protein Total Protein Albumin Triglycerides HDL Cholesterol Urine WBC (Auto) Urine Creatinine Urine Total Protein Vancomycin Trough Rheumatoid Factor Complement C4 Crossmatch 09/22/16 09/22/16 09/23/16 17:29 23:10 05:00 WBC 19.2 H RBC 3.13 L Hgb 8.0 L Hct 25.2 L MCV MCH 26 L MCHC RDW 22.1 H Plt Count Lymph % (Auto) Barron % (Auto) Lymph # Barron # Seg Neutrophils % Seg Neuts % (Manual) 92.0 H Lymphocytes % (Manual) 3.0 L Monocytes % (Manual) Eosinophils % (Manual) Basophils % (Manual) Seg Neutrophils # Seg Neutrophils # Man 17.7 H Lymphocytes # (Manual) 0.6 L Monocytes # (Manual) Eosinophils # (Manual) Fibrinogen dRVVT Confirm Interp Factor V Activity POC ABG pH POC ABG pCO2 POC ABG pO2 Sodium Potassium Chloride Carbon Dioxide BUN Creatinine Glucose POC Glucose 197 H 169 H Lactic Acid Calcium Phosphorus Magnesium Direct Bilirubin C-Reactive Protein Total Protein Albumin Triglycerides HDL Cholesterol Urine WBC (Auto) Urine Creatinine Urine Total Protein Vancomycin Trough Rheumatoid Factor Complement C4 Crossmatch 09/23/16 09/23/16 09/23/16 05:00 05:00 05:10 WBC RBC Hgb Hct MCV MCH MCHC RDW Plt Count Lymph % (Auto) Barron % (Auto) Lymph # Barron # Seg Neutrophils % Seg Neuts % (Manual) Lymphocytes % (Manual) Monocytes % (Manual) Eosinophils % (Manual) Basophils % (Manual) Seg Neutrophils # Seg Neutrophils # Man Lymphocytes # (Manual) Monocytes # (Manual) Eosinophils # (Manual) Fibrinogen dRVVT Confirm Interp Factor V Activity POC ABG pH POC ABG pCO2 POC ABG pO2 Sodium 147 H Potassium 3.2 L Chloride 115.7 H Carbon Dioxide 13 L BUN 111 H Creatinine 3.8 H Glucose 194 H POC Glucose 188 H Lactic Acid Calcium 7.3 L D Phosphorus Magnesium Direct Bilirubin C-Reactive Protein 3.20 H Total Protein Albumin Triglycerides HDL Cholesterol Urine WBC (Auto) Urine Creatinine Urine Total Protein Vancomycin Trough Rheumatoid Factor Complement C4 Crossmatch 09/23/16 09/23/16 09/23/16 11:37 12:29 18:01 WBC RBC Hgb Hct MCV MCH MCHC RDW Plt Count Lymph % (Auto) Barron % (Auto) Lymph # Barron # Seg Neutrophils % Seg Neuts % (Manual) Lymphocytes % (Manual) Monocytes % (Manual) Eosinophils % (Manual) Basophils % (Manual) Seg Neutrophils # Seg Neutrophils # Man Lymphocytes # (Manual) Monocytes # (Manual) Eosinophils # (Manual) Fibrinogen dRVVT Confirm Interp Factor V Activity POC ABG pH POC ABG pCO2 18.9 L POC ABG pO2 143 H Sodium Potassium Chloride Carbon Dioxide BUN Creatinine Glucose POC Glucose 153 H 108 H Lactic Acid Calcium Phosphorus Magnesium Direct Bilirubin C-Reactive Protein Total Protein Albumin Triglycerides HDL Cholesterol Urine WBC (Auto) Urine Creatinine Urine Total Protein Vancomycin Trough Rheumatoid Factor Complement C4 Crossmatch 09/23/16 09/23/16 09/24/16 21:19 23:43 05:16 WBC RBC Hgb Hct MCV MCH MCHC RDW Plt Count Lymph % (Auto) Barron % (Auto) Lymph # Barron # Seg Neutrophils % Seg Neuts % (Manual) Lymphocytes % (Manual) Monocytes % (Manual) Eosinophils % (Manual) Basophils % (Manual) Seg Neutrophils # Seg Neutrophils # Man Lymphocytes # (Manual) Monocytes # (Manual) Eosinophils # (Manual) Fibrinogen dRVVT Confirm Interp Factor V Activity POC ABG pH POC ABG pCO2 17.3 L POC ABG pO2 112 H Sodium Potassium Chloride Carbon Dioxide BUN Creatinine Glucose POC Glucose 143 H 164 H Lactic Acid Calcium Phosphorus Magnesium Direct Bilirubin C-Reactive Protein Total Protein Albumin Triglycerides HDL Cholesterol Urine WBC (Auto) Urine Creatinine Urine Total Protein Vancomycin Trough Rheumatoid Factor Complement C4 Crossmatch 09/24/16 09/24/16 09/24/16 05:21 11:58 17:06 WBC RBC Hgb Hct MCV MCH MCHC RDW Plt Count Lymph % (Auto) Barron % (Auto) Lymph # Barron # Seg Neutrophils % Seg Neuts % (Manual) Lymphocytes % (Manual) Monocytes % (Manual) Eosinophils % (Manual) Basophils % (Manual) Seg Neutrophils # Seg Neutrophils # Man Lymphocytes # (Manual) Monocytes # (Manual) Eosinophils # (Manual) Fibrinogen dRVVT Confirm Interp Factor V Activity POC ABG pH POC ABG pCO2 POC ABG pO2 Sodium Potassium Chloride Carbon Dioxide 10 L BUN 103 H Creatinine 4.3 H Glucose 163 H POC Glucose 173 H 167 H Lactic Acid Calcium 6.5 L Phosphorus Magnesium Direct Bilirubin C-Reactive Protein Total Protein Albumin Triglycerides HDL Cholesterol Urine WBC (Auto) Urine Creatinine Urine Total Protein Vancomycin Trough Rheumatoid Factor Complement C4 Crossmatch 09/24/16 09/24/16 09/24/16 20:15 21:02 23:48 WBC RBC Hgb Hct MCV MCH MCHC RDW Plt Count Lymph % (Auto) Barron % (Auto) Lymph # Barron # Seg Neutrophils % Seg Neuts % (Manual) Lymphocytes % (Manual) Monocytes % (Manual) Eosinophils % (Manual) Basophils % (Manual) Seg Neutrophils # Seg Neutrophils # Man Lymphocytes # (Manual) Monocytes # (Manual) Eosinophils # (Manual) Fibrinogen dRVVT Confirm Interp Factor V Activity POC ABG pH 7.288 L POC ABG pCO2 30.2 L 21.5 L POC ABG pO2 32 L 39 L Sodium Potassium Chloride Carbon Dioxide BUN Creatinine Glucose POC Glucose 109 H Lactic Acid Calcium Phosphorus Magnesium Direct Bilirubin C-Reactive Protein Total Protein Albumin Triglycerides HDL Cholesterol Urine WBC (Auto) Urine Creatinine Urine Total Protein Vancomycin Trough Rheumatoid Factor Complement C4 Crossmatch 09/25/16 09/25/16 09/25/16 04:20 04:20 04:20 WBC RBC 2.58 L Hgb 7.0 L Hct 21.0 L MCV MCH 27 L MCHC RDW 23.8 H Plt Count Lymph % (Auto) Barron % (Auto) Lymph # Barron # Seg Neutrophils % Seg Neuts % (Manual) Lymphocytes % (Manual) 12.0 L Monocytes % (Manual) Eosinophils % (Manual) 7.0 H Basophils % (Manual) 2.0 H Seg Neutrophils # Seg Neutrophils # Man Lymphocytes # (Manual) 0.9 L Monocytes # (Manual) Eosinophils # (Manual) 0.5 H Fibrinogen dRVVT Confirm Interp Factor V Activity POC ABG pH POC ABG pCO2 POC ABG pO2 Sodium Potassium Chloride Carbon Dioxide 15 L BUN 72 H Creatinine 3.8 H Glucose POC Glucose Lactic Acid Calcium 6.0 L Phosphorus 4.60 H Magnesium 1.60 L Direct Bilirubin C-Reactive Protein Total Protein Albumin Triglycerides HDL Cholesterol Urine WBC (Auto) Urine Creatinine Urine Total Protein Vancomycin Trough Rheumatoid Factor Complement C4 Crossmatch 09/25/16 09/25/16 09/25/16 04:57 08:02 10:30 WBC RBC Hgb Hct MCV MCH MCHC RDW Plt Count Lymph % (Auto) Barron % (Auto) Lymph # Barron # Seg Neutrophils % Seg Neuts % (Manual) Lymphocytes % (Manual) Monocytes % (Manual) Eosinophils % (Manual) Basophils % (Manual) Seg Neutrophils # Seg Neutrophils # Man Lymphocytes # (Manual) Monocytes # (Manual) Eosinophils # (Manual) Fibrinogen dRVVT Confirm Interp Factor V Activity POC ABG pH POC ABG pCO2 24.7 L POC ABG pO2 152 H Sodium Potassium Chloride Carbon Dioxide BUN Creatinine Glucose POC Glucose 113 H Lactic Acid Calcium Phosphorus Magnesium Direct Bilirubin C-Reactive Protein Total Protein Albumin Triglycerides HDL Cholesterol Urine WBC (Auto) Urine Creatinine Urine Total Protein Vancomycin Trough Rheumatoid Factor Complement C4 Crossmatch See Detail 09/25/16 09/25/16 09/25/16 12:05 17:44 23:47 WBC RBC Hgb Hct MCV MCH MCHC RDW Plt Count Lymph % (Auto) Barron % (Auto) Lymph # Barron # Seg Neutrophils % Seg Neuts % (Manual) Lymphocytes % (Manual) Monocytes % (Manual) Eosinophils % (Manual) Basophils % (Manual) Seg Neutrophils # Seg Neutrophils # Man Lymphocytes # (Manual) Monocytes # (Manual) Eosinophils # (Manual) Fibrinogen dRVVT Confirm Interp Factor V Activity POC ABG pH POC ABG pCO2 POC ABG pO2 Sodium Potassium Chloride Carbon Dioxide BUN Creatinine Glucose POC Glucose 117 H 119 H 150 H Lactic Acid Calcium Phosphorus Magnesium Direct Bilirubin C-Reactive Protein Total Protein Albumin Triglycerides HDL Cholesterol Urine WBC (Auto) Urine Creatinine Urine Total Protein Vancomycin Trough Rheumatoid Factor Complement C4 Crossmatch 08/07/17 08/07/17 08/07/17 04:25 04:25 04:25 WBC RBC 2.65 L Hgb 7.4 L Hct 21.6 L MCV MCH MCHC RDW 22.5 H Plt Count Lymph % (Auto) Barron % (Auto) Lymph # Barron # Seg Neutrophils % Seg Neuts % (Manual) Lymphocytes % (Manual) 6.0 L Monocytes % (Manual) Eosinophils % (Manual) 11.0 H Basophils % (Manual) Seg Neutrophils # Seg Neutrophils # Man Lymphocytes # (Manual) 0.4 L Monocytes # (Manual) Eosinophils # (Manual) 0.6 H Fibrinogen dRVVT Confirm Interp Factor V Activity POC ABG pH POC ABG pCO2 POC ABG pO2 Sodium Potassium Chloride 97.0 L Carbon Dioxide 19 L BUN 43 H Creatinine 2.6 H Glucose 130 H POC Glucose Lactic Acid 4.40 H* Calcium 6.7 L Phosphorus Magnesium Direct Bilirubin C-Reactive Protein Total Protein Albumin Triglycerides HDL Cholesterol Urine WBC (Auto) Urine Creatinine Urine Total Protein Vancomycin Trough Rheumatoid Factor Complement C4 Crossmatch 09/26/16 09/26/16 09/26/16 05:20 11:44 12:12 WBC RBC Hgb Hct MCV MCH MCHC RDW Plt Count Lymph % (Auto) Barron % (Auto) Lymph # Barron # Seg Neutrophils % Seg Neuts % (Manual) Lymphocytes % (Manual) Monocytes % (Manual) Eosinophils % (Manual) Basophils % (Manual) Seg Neutrophils # Seg Neutrophils # Man Lymphocytes # (Manual) Monocytes # (Manual) Eosinophils # (Manual) Fibrinogen dRVVT Confirm Interp Factor V Activity POC ABG pH POC ABG pCO2 27.0 L POC ABG pO2 69 L Sodium Potassium Chloride Carbon Dioxide BUN Creatinine Glucose POC Glucose 121 H 128 H Lactic Acid Calcium Phosphorus Magnesium Direct Bilirubin C-Reactive Protein Total Protein Albumin Triglycerides HDL Cholesterol Urine WBC (Auto) Urine Creatinine Urine Total Protein Vancomycin Trough Rheumatoid Factor Complement C4 Crossmatch 09/26/16 09/26/16 09/27/16 18:31 23:40 08:20 WBC RBC Hgb Hct MCV MCH MCHC RDW Plt Count Lymph % (Auto) Barron % (Auto) Lymph # Barron # Seg Neutrophils % Seg Neuts % (Manual) Lymphocytes % (Manual) Monocytes % (Manual) Eosinophils % (Manual) Basophils % (Manual) Seg Neutrophils # Seg Neutrophils # Man Lymphocytes # (Manual) Monocytes # (Manual) Eosinophils # (Manual) Fibrinogen dRVVT Confirm Interp Factor V Activity POC ABG pH POC ABG pCO2 POC ABG pO2 Sodium Potassium Chloride Carbon Dioxide BUN Creatinine Glucose POC Glucose 120 H 133 H Lactic Acid 4.10 H* Calcium Phosphorus Magnesium Direct Bilirubin C-Reactive Protein Total Protein Albumin Triglycerides HDL Cholesterol Urine WBC (Auto) Urine Creatinine Urine Total Protein Vancomycin Trough Rheumatoid Factor Complement C4 Crossmatch 09/27/16 09/27/16 09/27/16 11:23 15:00 18:15 WBC RBC Hgb Hct MCV MCH MCHC RDW Plt Count Lymph % (Auto) Barron % (Auto) Lymph # Barron # Seg Neutrophils % Seg Neuts % (Manual) Lymphocytes % (Manual) Monocytes % (Manual) Eosinophils % (Manual) Basophils % (Manual) Seg Neutrophils # Seg Neutrophils # Man Lymphocytes # (Manual) Monocytes # (Manual) Eosinophils # (Manual) Fibrinogen dRVVT Confirm Interp Factor V Activity POC ABG pH 7.459 H POC ABG pCO2 27.1 L POC ABG pO2 140 H Sodium Potassium Chloride Carbon Dioxide BUN Creatinine Glucose POC Glucose 114 H 127 H Lactic Acid Calcium Phosphorus Magnesium Direct Bilirubin C-Reactive Protein Total Protein Albumin Triglycerides HDL Cholesterol Urine WBC (Auto) Urine Creatinine Urine Total Protein Vancomycin Trough Rheumatoid Factor Complement C4 Crossmatch 09/27/16 09/27/16 09/28/16 Unknown Unknown 03:45 WBC RBC 2.49 L Hgb 6.8 L Hct 20.7 L MCV MCH 27 L MCHC RDW 22.1 H Plt Count Lymph % (Auto) Barron % (Auto) Lymph # Barron # Seg Neutrophils % Seg Neuts % (Manual) 32.0 L Lymphocytes % (Manual) 12.0 L Monocytes % (Manual) 11.0 H Eosinophils % (Manual) 10.0 H Basophils % (Manual) Seg Neutrophils # Seg Neutrophils # Man Lymphocytes # (Manual) 1.0 L Monocytes # (Manual) 0.9 H Eosinophils # (Manual) 0.8 H Fibrinogen dRVVT Confirm Interp Factor V Activity POC ABG pH POC ABG pCO2 POC ABG pO2 Sodium 135 L 135 L Potassium 3.5 L Chloride 93.6 L 94.4 L Carbon Dioxide 17 L 21 L BUN 45 H 28 H Creatinine 3.3 H 2.5 H Glucose 106 H POC Glucose Lactic Acid Calcium 7.3 L 7.1 L Phosphorus Magnesium Direct Bilirubin C-Reactive Protein Total Protein Albumin Triglycerides HDL Cholesterol Urine WBC (Auto) Urine Creatinine Urine Total Protein Vancomycin Trough Rheumatoid Factor Complement C4 Crossmatch 09/28/16 09/28/16 09/28/16 03:45 07:25 11:58 WBC 13.3 H RBC 3.01 L Hgb 8.4 L Hct 25.0 L MCV MCH MCHC RDW 20.5 H Plt Count 128 L Lymph % (Auto) Barron % (Auto) Lymph # Barron # Seg Neutrophils % Seg Neuts % (Manual) Lymphocytes % (Manual) 7.0 L Monocytes % (Manual) Eosinophils % (Manual) 6.0 H Basophils % (Manual) Seg Neutrophils # Seg Neutrophils # Man Lymphocytes # (Manual) 0.9 L Monocytes # (Manual) Eosinophils # (Manual) 0.8 H Fibrinogen dRVVT Confirm Interp Factor V Activity POC ABG pH POC ABG pCO2 POC ABG pO2 Sodium Potassium Chloride Carbon Dioxide BUN Creatinine Glucose POC Glucose 121 H Lactic Acid 4.50 H* Calcium Phosphorus Magnesium Direct Bilirubin C-Reactive Protein Total Protein Albumin Triglycerides HDL Cholesterol Urine WBC (Auto) Urine Creatinine Urine Total Protein Vancomycin Trough Rheumatoid Factor Complement C4 Crossmatch 09/29/16 09/29/16 09/29/16 06:45 06:45 06:45 WBC 14.9 H RBC 2.74 L Hgb 7.6 L Hct 23.2 L MCV MCH MCHC RDW 20.5 H Plt Count 81 L Lymph % (Auto) Barron % (Auto) Lymph # Barron # Seg Neutrophils % Seg Neuts % (Manual) 81.0 H Lymphocytes % (Manual) 4.0 L Monocytes % (Manual) Eosinophils % (Manual) Basophils % (Manual) Seg Neutrophils # Seg Neutrophils # Man 12.1 H Lymphocytes # (Manual) 0.6 L Monocytes # (Manual) Eosinophils # (Manual) Fibrinogen dRVVT Confirm Interp Factor V Activity POC ABG pH POC ABG pCO2 POC ABG pO2 Sodium 133 L Potassium 3.4 L Chloride 92.5 L Carbon Dioxide 21 L BUN 33 H Creatinine 3.0 H Glucose POC Glucose Lactic Acid Calcium 6.6 L Phosphorus Magnesium 1.40 L Direct Bilirubin 0.9 H C-Reactive Protein Total Protein 4.3 L Albumin 1.3 L Triglycerides HDL Cholesterol Urine WBC (Auto) Urine Creatinine Urine Total Protein Vancomycin Trough Rheumatoid Factor Complement C4 Crossmatch Chest x-ray: image reviewed Allied health notes reviewed: RT
[2016-09-29] MEDS: ASPIRIN PO SCH (15:25)
[2016-09-29] MEDS ORDERED: D50W (25GM) Vial IV ONE (18:02)
[2016-09-29] MEDS: MYCAMINE 100 MG in NACL 0.9% 100 ML IV SCH (20:52)
[2016-09-29] MEDS: ERY-TAB PO SCH (20:53)
[2016-09-29 21:14] LABS: Creatine Kinase MB < 1.0 ng/mL (0.0-4.0)
[2016-09-29 21:39] LABS: Chol/HDL Ratio 10.33 %; HDL Cholesterol 3 mg/dL (40-59)
[2016-09-29 21:40] LABS: LDL Cholesterol,Direct 4 mg/dL (50-130)
[2016-09-30] MEDS: FLAGYL 500 MG/100 ML 500 MG/100 ML BAG IV SCH ×3 (00:21→17:35)
[2016-09-30] MEDS: D50W (25GM) Vial IV PRN (00:22)
[2016-09-30] MEDS: HumuLIN R SUB-Q SCH ×4 (00:24→18:47)
[2016-09-30 06:51] LABS: BUN/Creatinine Ratio 11.25; Calcium 6.4 mg/dL (8.4-10.2)
[2016-09-30] MEDS: Vasostrict 20 UNIT in NACL 0.9% 100 ML IV SCH (06:51)
--- NOTE | 2016-09-30 07:18 | XRay Report ---
Single view chest: Compared to . History: Followup of respiratory failure. Findings: Cardiomegaly. Trachea is midline. Right pleural effusion. No consolidation. No significant interval change. Impression: No significant interval change.
[2016-09-30] MEDS: REGLAN IV SCH ×4 (07:42→21:28)
[2016-09-30] MEDS: ERY-TAB PO SCH (08:00)
[2016-09-30] MEDS ORDERED: MAGNESIUM SULFATE 2GM/50ML 2 GM/50 ML BAG IV ONE (09:10)
--- NOTE | 2016-09-30 09:12 | Progress Note ---
Assessment and Plan Assessment and plan: --Hypokalemia; replace per protocol and monitor levels --Hypomagnesemia; replace per protocol and monitor levels --Acute hypoxic respiratory failure vent dependent/unable to wean s/p trach and PEG, continue PEG feeds --Paroxysmal A. fib, persistent RVR ,on amiodarone drip, Cardiology following --Chronic anticoagulation need to be started per cardiology, will consult neurology for recommendations --Anemia, status post multiple units of PRBC transfusion, closely monitor H&H and transfuse as needed --Hypotension/ septic shock on multiple pressors, titrate systolic blood pressures to more than 100 --Acute on chronic kidney disease stage III , worsening renal function , nephrology following Hemodialysis as needed --Acute large left MCA CVA status post TPA/encephalopathy, Aspirin/statin/ supportive care --Aspiration pneumonia, Continue vancomycin and Flagyl, ID following --Acute exacerbation of COPD;, Nebulizers tapering dose of steroids antibiotics and ventilatory support, pulmonary following --Anemia requiring blood transfusion; closely monitor H&H and transfuse as needed --2 diabetes mellitus; Accu-Chek sliding scale coverage and ADA diet and insulin as needed --Moderate to severe protein calorie malnutrition with albumin of 2.2, Nutritional supplements, tube feeding, supportive care --DVT prophylaxis with heparin --Full CODE STATUS Very poor prognosis; I talked to son and the brother periodically and updated patient's condition and treatment plan They are aware of patient's poor prognosis History Interval history: Patient seen and evaluated medical records reviewed Patient is critically ill no new changes Status post tracheostomy on vent Unresponsive. Encephalopathy On amiodarone drip, tachycardic heart rate ranging in 110s to 120s Hospitalist Physical - Constitutional Vitals: Temp Pulse Resp BP Pulse Ox 98.6 F 109 H 28 H 103/70 100 09/30/16 04:00 09/30/16 08:45 09/30/16 06:30 09/30/16 08:45 09/30/16 08:45 General appearance: Present: no acute distress, cachectic, other (status post tracheostomy on vent) - EENT Eyes: Present: PERRL ENT: other (tracheostomy in place) - Neck Neck: Present: supple, normal ROM - Respiratory Respiratory effort: normal Respiratory: bilateral: diminished, rhonchi, negative: rales, wheezing - Cardiovascular Rhythm: irregularly irregular Heart Sounds: Present: S1 & S2 (rapid ventricular rate) - Extremities Extremities: no ischemia Extremity abnormal: edema - Abdominal General gastrointestinal: soft, non-tender, non-distended, normal bowel sounds - Integumentary Integumentary: Present: clear, warm - Psychiatric Psychiatric: other (unresponsive) - Neurologic Neurologic: other (unresponsive) Results - Labs CBC & Chem 7: 09/29/16 06:45 09/30/16 06:10 Labs: Laboratory Last Values WBC 14.9 K/mm3 (4.5-11.0) H 09/29/16 06:45 RBC 2.74 M/mm3 (3.65-5.03) L 09/29/16 06:45 Hgb 7.6 gm/dl (10.1-14.3) L 09/29/16 06:45 Hct 23.2 % (30.3-42.9) L 09/29/16 06:45 MCV 85 fl (79-97) 09/29/16 06:45 MCH 28 pg (28-32) 09/29/16 06:45 MCHC 33 % (30-34) 09/29/16 06:45 RDW 20.5 % (13.2-15.2) H 09/29/16 06:45 Plt Count 81 K/mm3 (140-440) L 09/29/16 06:45 Lymph % (Auto) 6.9 % (13.4-35.0) L 09/21/16 07:45 [place] % (Auto) 9.4 % (0.0-7.3) H 09/21/16 07:45 Eos % (Auto) 0.3 % (0.0-4.3) 09/21/16 07:45 Baso % (Auto) 0.2 % (0.0-1.8) 09/21/16 07:45 Lymph # 0.9 K/mm3 (1.2-5.4) L 09/21/16 07:45 [place] # 1.3 K/mm3 (0.0-0.8) H 09/21/16 07:45 Eos # 0.0 K/mm3 (0.0-0.4) 09/21/16 07:45 Baso # 0.0 K/mm3 (0.0-0.1) 09/21/16 07:45 Add Manual Diff Complete 09/29/16 06:45 Total Counted 100 09/29/16 06:45 Seg Neutrophils % Tar Boiler 09/23/16 05:00 Seg Neuts % (Manual) 81.0 % (40.0-70.0) H 09/29/16 06:45 Band Neutrophils % 8.0 % 09/29/16 06:45 Lymphocytes % (Manual) 4.0 % (13.4-35.0) L 09/29/16 06:45 Reactive Lymphs % (Man) 2.0 % 09/29/16 06:45 Monocytes % (Manual) 3.0 % (0.0-7.3) 09/29/16 06:45 Eosinophils % (Manual) 2.0 % (0.0-4.3) 09/29/16 06:45 Basophils % (Manual) 0 % (0.0-1.8) 09/29/16 06:45 Metamyelocytes % 0 % 09/29/16 06:45 Myelocytes % 0 % 09/29/16 06:45 Promyelocytes % 0 % 09/29/16 06:45 Blast Cells % 0 % 09/29/16 06:45 Nucleated RBC % Not Reportable 09/29/16 06:45 Seg Neutrophils # 11.5 K/mm3 (1.8-7.7) H 09/21/16 07:45 Seg Neutrophils # Man 12.1 K/mm3 (1.8-7.7) H 09/29/16 06:45 Band Neutrophils # 1.2 K/mm3 09/29/16 06:45 Lymphocytes # (Manual) 0.6 K/mm3 (1.2-5.4) L 09/29/16 06:45 Abs React Lymphs (Man) 0.3 K/mm3 09/29/16 06:45 Monocytes # (Manual) 0.4 K/mm3 (0.0-0.8) 09/29/16 06:45 Eosinophils # (Manual) 0.3 K/mm3 (0.0-0.4) 09/29/16 06:45 Basophils # (Manual) 0.0 K/mm3 (0.0-0.1) 09/29/16 06:45 Metamyelocytes # 0.0 K/mm3 09/29/16 06:45 Myelocytes # 0.0 K/mm3 09/29/16 06:45 Promyelocytes # 0.0 K/mm3 09/29/16 06:45 Blast Cells # 0.0 K/mm3 09/29/16 06:45 Pathologist Review 09/13/16 04:00 WBC Morphology Not Reportable 09/29/16 06:45 Hypersegmented Neuts Not Reportable 09/29/16 06:45 Hyposegmented Neuts Not Reportable 09/29/16 06:45 Hypogranular Neuts Not Reportable 09/29/16 06:45 Smudge Cells Not Reportable 09/29/16 06:45 Toxic Granulation Not Reportable 09/29/16 06:45 Toxic Vacuolation Not Reportable 09/29/16 06:45 Dohle Bodies Not Reportable 09/29/16 06:45 Pelger-Huet Anomaly Not Reportable 09/29/16 06:45 Jasmina Rods Not Reportable 09/29/16 06:45 Platelet Estimate Consistent w auto 09/29/16 06:45 Clumped Platelets Not Reportable 09/29/16 06:45 Plt Clumps, EDTA Not Reportable 09/29/16 06:45 Large Platelets Not Reportable 09/29/16 06:45 Giant Platelets Not Reportable 09/29/16 06:45 Platelet Satelliting Not Reportable 09/29/16 06:45 Plt Morphology Comment Not Reportable 09/29/16 06:45 RBC Morphology Not Reportable 09/29/16 06:45 Dimorphic RBCs Not Reportable 09/29/16 06:45 Polychromasia Not Reportable 09/29/16 06:45 Hypochromasia Not Reportable 09/29/16 06:45 Poikilocytosis Not Reportable 09/29/16 06:45 Anisocytosis 1+ 09/29/16 06:45 Microcytosis Not Reportable 09/29/16 06:45 Macrocytosis Not Reportable 09/29/16 06:45 Spherocytes Not Reportable 09/29/16 06:45 Pappenheimer Bodies Not Reportable 09/29/16 06:45 Sickle Cells Not Reportable 09/29/16 06:45 Target Cells Not Reportable 09/29/16 06:45 Tear Drop Cells Not Reportable 09/29/16 06:45 Ovalocytes Not Reportable 09/29/16 06:45 Helmet Cells Not Reportable 09/29/16 06:45 [place] Bodies Not Reportable 09/29/16 06:45 [place] Rings Not Reportable 09/29/16 06:45 Chuck Cells Not Reportable 09/29/16 06:45 Bite Cells Not Reportable 09/29/16 06:45 Crenated Cell Not Reportable 09/29/16 06:45 Elliptocytes Not Reportable 09/29/16 06:45 Acanthocytes (Spur) Not Reportable 09/29/16 06:45 Rouleaux Not Reportable 09/29/16 06:45 Hemoglobin C Crystals Not Reportable 09/29/16 06:45 Schistocytes Not Reportable 09/29/16 06:45 Malaria parasites Not Reportable 09/29/16 06:45 ESR > 140.0 mm/Hr (0-20) 09/08/16 11:48 Jun Bodies Not Reportable 09/29/16 06:45 Hem Pathologist Commnt No 09/29/16 06:45 PT 13.8 Sec. (12.2-14.9) 09/15/16 05:00 INR 1.01 (0.87-1.13) 09/15/16 05:00 APTT 24.4 Sec. (24.2-36.6) 09/15/16 05:00 Thrombin Time 16.8 Sec. (15.1-19.6) 09/03/16 00:10 Fibrinogen 750 mg/dl (211-480) H 09/08/16 11:48 Lupus Anticoagulant see below 09/12/16 09:59 LA PTT Baseline See scanned report 09/12/16 09:59 dRVVT Confirm Interp Positive (Negative) H 09/12/16 09:59 dRVVT Screen 50:50 See scanned report 09/12/16 09:59 dRVVT Mix Interpret See scanned report 09/12/16 09:59 Protein C Antigen 122 % (70-140) 09/08/16 15:35 Free Protein S 97 % normal (50-147) 09/08/16 15:35 Total Protein S 109 % (70-140) 09/08/16 15:35 Antithrombin III Ag 100 % (80-120) 09/08/16 15:35 Factor V Activity 182 % (65-150) H 09/08/16 15:35 POC ABG pH 7.459 (7.35-7.45) H 09/27/16 15:00 POC ABG pCO2 27.1 (35-45) L 09/27/16 15:00 POC ABG pO2 140 (80-105) H 09/27/16 15:00 POC ABG HCO3 19.3 09/27/16 15:00 POC ABG Total CO2 20 09/27/16 15:00 POC ABG O2 Sat 99 09/27/16 15:00 POC ABG Base Excess -5 09/27/16 15:00 FiO2 50 % 09/27/16 15:00 Sodium 133 mmol/L (137-145) L 09/30/16 06:10 Potassium 3.2 mmol/L (3.6-5.0) L 09/30/16 06:10 Chloride 93.2 mmol/L (98-107) L 09/30/16 06:10 Carbon Dioxide 19 mmol/L (22-30) L 09/30/16 06:10 Anion Gap 24 mmol/L 09/30/16 06:10 BUN 36 mg/dL (7-17) H 09/30/16 06:10 Creatinine 3.2 mg/dL (0.7-1.2) H 09/30/16 06:10 Estimated GFR 19 ml/min 09/30/16 06:10 BUN/Creatinine Ratio 11.25 % 09/30/16 06:10 Glucose 104 mg/dL (65-100) H 09/30/16 06:10 POC Glucose 146 (70-105) H 09/30/16 05:15 Osmolality 351 Mosm/kg 09/16/16 11:47 Lactic Acid 4.50 mmol/L (0.7-2.0) H* 09/28/16 07:25 Calcium 6.4 mg/dL (8.4-10.2) L 09/30/16 06:10 Phosphorus 4.60 mg/dL (2.5-4.5) H 09/25/16 04:20 Magnesium 1.60 mg/dL (1.7-2.3) L 09/30/16 06:10 Total Bilirubin 1.20 mg/dL (0.1-1.2) 09/29/16 06:45 Direct Bilirubin 0.9 mg/dL (0-0.2) H 09/29/16 06:45 Indirect Bilirubin 0.3 mg/dL 09/29/16 06:45 AST 24 units/L (5-40) 09/29/16 06:45 ALT 16 units/L (7-56) 09/29/16 06:45 Alkaline Phosphatase 72 units/L (35-129) 09/29/16 06:45 Ammonia 27.0 umol/L (25-60) 09/07/16 08:37 Total Creatine Kinase 121 units/L (30-135) 09/29/16 20:12 CK-MB (CK-2) < 1.0 ng/mL (0.0-4.0) 09/29/16 20:12 CK-MB (CK-2) Rel Index 0.8 (0-4) 09/29/16 20:12 Troponin T 0.204 ng/mL (0.00-0.029) H* 09/29/16 20:12 C-Reactive Protein 3.20 mg/dL (0.00-1.30) H 09/23/16 05:00 Total Protein 4.3 g/dL (6.3-8.2) L 09/29/16 06:45 Albumin 1.3 g/dL (3.9-5) L 09/29/16 06:45 Albumin/Globulin Ratio 0.4 % 09/29/16 06:45 Triglycerides 137 mg/dL (2-149) 09/29/16 20:12 Cholesterol 31 mg/dL (50-199) L 09/29/16 20:12 LDL Cholesterol Direct 4 mg/dL (50-130) L 09/29/16 20:12 HDL Cholesterol 3 mg/dL (40-59) L 09/29/16 20:12 Cholesterol/HDL Ratio 10.33 % 09/29/16 20:12 Angiotensin Convert Enz See scanned report 09/08/16 11:48 TSH 1.010 mlU/mL (0.270-4.200) 09/07/16 08:37 HCG, Qual Negative (Negative) 09/03/16 00:10 Urine Color Yellow (Yellow) 09/09/16 14:13 Urine Turbidity Slightly-cloudy (Clear) 09/09/16 14:13 Urine pH 5.0 (5.0-7.0) 09/09/16 14:13 Ur Specific [place] 1.012 (1.003-1.030) 09/09/16 14:13 Urine Protein 30 mg/dl mg/dL (Negative) 09/09/16 14:13 Urine Glucose (UA) Neg mg/dL (Negative) 09/09/16 14:13 Urine Ketones Neg mg/dL (Negative) 09/09/16 14:13 Urine Blood Lg (Negative) 09/09/16 14:13 Urine Nitrite Neg (Negative) 09/09/16 14:13 Urine Bilirubin Neg (Negative) 09/09/16 14:13 Urine Urobilinogen < 2.0 mg/dL (<2.0) 09/09/16 14:13 Ur Leukocyte Esterase Sm (Negative) 09/09/16 14:13 Urine WBC (Auto) 25.0 /HPF (0.0-6.0) H 09/09/16 14:13 Urine RBC (Auto) > 182.0 /HPF (0.0-6.0) 09/09/16 14:13 Urine Bacteria (Auto) 1+ /HPF (Negative) 09/09/16 14:13 Urine WBC Clumps 2+ /HPF 09/07/16 02:47 Hyaline Casts 4 /LPF 09/07/16 02:47 Urine Mucus Few /HPF 09/09/16 14:13 Urine Eosinophils None seen (None Seen) 09/07/16 16:00 Urine Total Volume 1350 09/21/16 12:00 Urine Creatinine 54.8 mg/dL (0.1-20.0) H 09/21/16 12:00 Height (in) 67.0 inches 09/21/16 12:00 Weight (lb) 92.0 lbs 09/21/16 12:00 Creatinine Clearance 15 09/21/16 12:00 Urine Sodium 36 mEq/L 09/16/16 19:19 Urine Total Protein 16 mg/dL (5-11.8) H 09/16/16 19:19 Vancomycin Trough 2.3 ug/mL (5.0-20.0) L 09/21/16 13:00 Random Vancomycin 2.3 ug/mL (0-40.0) 09/09/16 03:00 Urine Opiates Screen Presumptive negative 09/03/16 15:11 Urine Methadone Screen Presumptive positive 09/03/16 15:11 Ur Barbiturates Screen Presumptive positive 09/03/16 15:11 Ur Phencyclidine Scrn Presumptive negative 09/03/16 15:11 Ur Amphetamines Screen Presumptive negative 09/03/16 15:11 U Benzodiazepines Scrn Presumptive negative 09/03/16 15:11 Urine Cocaine Screen Presumptive negative 09/03/16 15:11 U Marijuana (THC) Screen Presumptive positive 09/03/16 15:11 Drugs of Abuse Note Disclamer 09/03/16 15:11 Rheumatoid Factor 24 IU/ml (0-13) H 09/08/16 11:48 SAHIL Screen Negative (Negative) 09/07/16 09:20 Proteinase 3 (PR3) Ab <1.0 AI (<1.0) 09/07/16 09:20 Myeloperoxidase Ab <1.0 AI (<1.0) 09/07/16 09:20 Sjogren's Antibody <1.0 AI (<1.0) 09/08/16 15:35 Scl-70 Scleroderma Ab <1.0 AI (<1.0) 09/08/16 15:35 Centromere B Antibody <1.0 AI (<1.0) 09/08/16 12:02 Cardiolipid IgG Ab <14 GPL (<=14) 09/12/16 09:59 Cardiolipid IgA Ab <11 APL (<=11) 09/12/16 09:59 Cardiolipid IgM Ab <12 MPL (<=12) 09/12/16 09:59 Complement C3 148 mg/dL (90-180) 09/07/16 09:20 Complement C4 58 mg/dL (16-47) H 09/07/16 09:20 RPR Nonreactive (Nonreactive) 09/08/16 11:48 Hepatitis A IgM Ab Non-reactive (NonReactive) 09/24/16 14:40 Hep Bs Antigen Non-reactive (Negative) 09/24/16 14:40 Hep B Core IgM Ab Non-reactive (NonReactive) 09/24/16 14:40 Hepatitis C Antibody Non-reactive (NonReactive) 09/24/16 14:40 HIV 1&2 Antibody Rapid Non react (Non React) 09/08/16 11:48 HIV P24 Antigen Non react (Non React) 09/08/16 11:48 Blood Type A POSITIVE 09/25/16 10:30 Antibody Screen TNR 09/25/16 10:30 DELORIS Antibody Screen Negative 09/25/16 10:30 Crossmatch See Detail 09/25/16 10:30
[2016-09-30] MEDS: PROTONIX IV SCH (09:45)
[2016-09-30] MEDS: ASPIRIN PO SCH (09:45)
[2016-09-30] MEDS ORDERED: POTASSIUM CHLORIDE FEEDTUBE ONE (10:00)
--- NOTE | 2016-09-30 10:55 | Progress Note ---
Assessment and Plan - Patient Problems (1) Fungemia Current Visit: Yes Status: Acute Plan to address problem: 1. Continue Micafungin. 2. Follow outstanding blood culture results. Previous lines have been removed. (2) Sepsis Current Visit: Yes Status: Acute Qualifiers: Sepsis type: sepsis due to unspecified organism Qualified Code(s): A41.9 - Sepsis, unspecified organism Plan to address problem: Per above. (3) Chronic renal insufficiency Current Visit: Yes Status: Acute Qualifiers: Chronic kidney disease stage: C Plan to address problem: Renal adjustments of meds. Subjective Date of service: 09/30/16 Principal diagnosis: Acute resp failure on MVS; S/P Acute CVA; Acute Encephalopathy; JUANITA Interval history: Remains in ICU, BP is improved. Patient on a single pressor agent. Also, on Erythromycin for enhanced gut motility. Objective - Constitutional Vitals: Vital Signs Temp Pulse Resp BP Pulse Ox 98.5 F 105 H 23 121/52 99 09/30/16 08:00 09/30/16 10:00 09/30/16 10:00 09/30/16 10:00 09/30/16 10:00 Temperature -Last 24 Hours Temperature 98.5 F Temperature 98.6 F Temperature 100 F Temperature 99.8 F Temperature 100.2 F Temperature 99.1 F General appearance: Present: well-nourished - Neck Neck: supple, other (tracheostomy, FiO2 40%) - Respiratory Respiratory effort: normal Respiratory: bilateral: rhonchi - Cardiovascular Rhythm: regular (rate in 110s) Extremity abnormal: edema (trace edema) - Gastrointestinal General gastrointestinal: Present: soft, non-distended, other ((+) PEG in place) Rectal Exam: other (rectal tube with watery,brown stool) - Genitourinary Female genitourinary: other ([place] with dark yellow urine) - Integumentary Integumentary: clear, no jaundice - Labs CBC & Chem 7: 09/29/16 06:45 09/30/16 06:10 Labs: Abnormal lab results 09/29/16 09/29/16 09/30/16 Range/Units 17:52 20:12 00:07 Sodium (137-145) mmol/L Potassium (3.6-5.0) mmol/L Chloride (98-107) mmol/L Carbon Dioxide (22-30) mmol/L BUN (7-17) mg/dL Creatinine (0.7-1.2) mg/dL Glucose (65-100) mg/dL POC Glucose 50 L 51 L (70-105) Calcium (8.4-10.2) mg/dL Magnesium (1.7-2.3) mg/dL Troponin T 0.204 H* (0.00-0.029) ng/mL Cholesterol 31 L (50-199) mg/dL LDL Cholesterol Direct 4 L (50-130) mg/dL HDL Cholesterol 3 L (40-59) mg/dL 09/30/16 09/30/16 09/30/16 Range/Units 01:30 05:15 06:10 Sodium 133 L (137-145) mmol/L Potassium 3.2 L (3.6-5.0) mmol/L Chloride 93.2 L (98-107) mmol/L Carbon Dioxide 19 L (22-30) mmol/L BUN 36 H (7-17) mg/dL Creatinine 3.2 H (0.7-1.2) mg/dL Glucose 104 H (65-100) mg/dL POC Glucose 167 H 146 H (70-105) Calcium 6.4 L (8.4-10.2) mg/dL Magnesium 1.60 L (1.7-2.3) mg/dL Troponin T (0.00-0.029) ng/mL Cholesterol (50-199) mg/dL LDL Cholesterol Direct (50-130) mg/dL HDL Cholesterol (40-59) mg/dL Microbiology 09/29/16 Unknown Peripheral/Venous Blood Culture - Preliminary Culture in Progress 09/23/16 16:55 Peripheral/Venous Blood Culture - Preliminary Silvia Albicans 09/23/16 16:55 Peripheral/Venous Blood Culture - Preliminary Silvia Albicans 09/23/16 16:30 Tracheal Aspirate Sputum Culture - Final 09/25/16 17:12 Peripheral/Venous Blood Fungal Culture - Preliminary Culture in Progress 09/25/16 17:12 Peripheral/Venous Blood Fungal Culture - Preliminary Culture in Progress 09/23/16 22:30 Urine,Catheterized - Indwelling Catheter Urine Culture - Final 09/13/16 10:30 Urine,[place] Urine Culture - Final NO GROWTH AFTER 48 HOURS 09/13/16 09:04 Peripheral/Venous Blood Culture - Final NO GROWTH AFTER 5 DAYS 09/13/16 08:39 Peripheral/Venous Blood Culture - Final NO GROWTH AFTER 5 DAYS 09/15/16 18:44 Stool Stool Occult Blood (HORTENCIA) - Final 09/13/16 14:06 Tracheal Aspirate Sputum Culture - Final 09/11/16 15:03 Stool C. difficile DNA Amplification - Final 09/10/16 10:58 Urine,Clean Catch Urine Culture - Preliminary NO GROWTH AFTER 48 HOURS 09/07/16 17:39 Tracheal Aspirate Sputum Culture - Final - Imaging and cardiology Chest x-ray: report reviewed (right pleural effusion, no consolidation)
[2016-09-30] MEDS: D5W 1,000 ML with SODIUM BICARBONATE 75 MEQ IV SCH (12:09)
[2016-09-30] MEDS: CORDARONE 900 MG in D5W 482 ML IV SCH (12:10)
--- NOTE | 2016-09-30 12:30 | Progress Note ---
Assessment and Plan Acute hypoxic respiratory failure on mechanical ventilation s/p trach and PEG Acute left MCA CVA echocardiogram demonstrates at least moderate LVH but a normal LV systolic function, EF 50-55%. no thrombus visualized on transthoracic echocardiogram. Hypertension Now patient is hypotensive Acute on chronic renal failure Leukocytosis/Fever Fungemia Diabetes mellitus Anemia requiring transfusion of PRBCs Persistent Afib with RVR on multiple pressors s/p failed cardioversion on 09/25 on amiodarone drip and IV digoxin Recommendation: Continue intravenous digoxin and intravenous amiodarone drip for A. fib rate control. Subjective Date of service: 09/30/16 Principal diagnosis: Acute resp failure on MVS; S/P Acute CVA; Acute Encephalopathy; JUANITA Interval history: Patient remains unresponsive, intubated via trach. Atrial fibrillation rate control is going to remain difficult in the setting of overwhelming sepsis. Objective Vital Signs Temp Pulse Pulse Resp Resp BP Pulse Ox 09/30/16 12:26 96 H 128/65 98 09/30/16 12:00 98.4 F 104 H 24 128/65 97 09/30/16 11:30 115 H 35 H 136/73 99 09/30/16 11:00 111 H 26 H 132/63 98 09/30/16 10:30 109 H 28 H 121/52 98 09/30/16 10:00 105 H 23 25 H 121/52 99 09/30/16 09:30 112 H 26 H 126/67 99 09/30/16 09:00 106 H 24 113/63 98 09/30/16 08:45 109 H 103/70 100 09/30/16 08:30 113 H 26 H 103/70 100 09/30/16 08:00 98.5 F 110 H 115 H 27 H 100/67 100 09/30/16 07:30 107 H 26 H 99/72 100 09/30/16 07:00 108 H 21 114/69 100 09/30/16 06:30 120 H 28 H 107/62 100 09/30/16 06:16 116 H 36 H 107/62 100 09/30/16 06:00 114 H 26 H 107/62 100 09/30/16 05:46 99 H 22 108/56 100 09/30/16 05:30 107 H 26 H 108/56 100 09/30/16 05:16 105 H 27 H 108/56 100 09/30/16 05:00 84 25 H 108/56 100 09/30/16 04:59 97 H 92/74 100 09/30/16 04:46 97 H 28 H 92/74 99 09/30/16 04:30 85 20 92/74 100 09/30/16 04:20 101 H 25 H 100 09/30/16 04:16 92 H 22 92/74 100 09/30/16 04:00 98.6 F 101 H 21 91/52 100 09/30/16 03:46 94 H 22 91/52 100 09/30/16 03:30 90 25 H 91/52 100 09/30/16 03:16 102 H 21 91/52 100 09/30/16 03:00 92 H 22 91/52 100 09/30/16 02:46 81 26 H 101/46 100 09/30/16 02:30 103 H 19 101/46 100 09/30/16 02:16 110 H 31 H 101/46 100 09/30/16 02:00 98 H 23 101/46 100 09/30/16 01:46 105 H 29 H 100/65 99 09/30/16 01:30 105 H 30 H 102/62 99 09/30/16 01:16 104 H 25 H 102/62 100 09/30/16 01:00 105 H 28 H 100/65 99 09/30/16 00:46 115 H 28 H 102/62 100 09/30/16 00:30 101 H 28 H 102/62 100 09/30/16 00:19 09/30/16 00:16 97 H 22 102/62 99 09/30/16 00:15 89 102/62 90 09/30/16 00:00 100 F H 91 H 89 18 102/62 99 09/29/16 23:46 87 20 106/48 100 09/29/16 23:30 97 H 33 H 106/48 100 09/29/16 23:16 96 H 19 106/48 99 09/29/16 23:00 100 H 29 H 106/48 98 09/29/16 22:46 94 H 20 103/65 100 09/29/16 22:30 91 H 19 103/65 100 09/29/16 22:24 99 H 19 103/65 100 09/29/16 22:16 96 H 20 103/65 89 09/29/16 22:00 98 H 26 H 103/65 100 09/29/16 21:46 94 H 25 H 106/49 99 09/29/16 21:30 103 H 20 106/49 97 09/29/16 21:16 95 H 26 H 106/49 99 09/29/16 21:00 96 H 22 106/49 97 09/29/16 20:46 100 H 26 H 111/56 99 09/29/16 20:30 108 H 25 H 111/56 99 09/29/16 20:16 96 H 23 111/56 100 09/29/16 20:05 95 H 103/65 93 09/29/16 20:00 99 H 98 H 25 H 111/56 100 09/29/16 19:46 98 H 22 103/47 09/29/16 19:42 99.8 F H 09/29/16 19:30 101 H 20 103/47 100 09/29/16 19:16 112 H 22 103/47 100 09/29/16 19:00 113 H 24 103/47 100 09/29/16 18:46 114 H 25 H 99/49 100 09/29/16 18:30 102 H 25 H 99/49 09/29/16 18:16 119 H 26 H 99/49 09/29/16 18:00 117 H 25 H 97/42 09/29/16 17:46 120 H 22 107/41 100 09/29/16 17:37 23 100 09/29/16 17:35 118 H 97/42 97 09/29/16 17:30 122 H 31 H 107/41 100 09/29/16 17:16 112 H 25 H 107/41 99 09/29/16 17:00 124 H 27 H 107/41 100 09/29/16 16:46 123 H 24 112/44 100 09/29/16 16:40 09/29/16 16:30 123 H 26 H 112/44 99 09/29/16 16:16 118 H 20 112/44 99 09/29/16 16:00 100.2 F H 129 H 136 H 44 H 112/44 100 09/29/16 15:46 129 H 30 H 112/64 98 09/29/16 15:30 132 H 26 H 112/64 97 09/29/16 15:16 138 H 38 H 112/64 97 09/29/16 15:00 120 H 24 112/64 97 09/29/16 14:46 136 H 29 H 110/47 98 09/29/16 14:30 110/47 100 09/29/16 14:16 31 H 110/47 09/29/16 14:00 136 H 29 H 110/47 100 09/29/16 13:46 131 H 28 H 81/42 100 09/29/16 13:45 136 H 113/64 15 L 09/29/16 13:30 127 H 30 H 81/42 100 09/29/16 13:16 129 H 31 H 81/42 100 09/29/16 13:00 127 H 24 79/44 100 09/29/16 12:46 116 H 25 H 95/50 100 09/29/16 12:30 124 H 29 H 87/54 100 Pulse Ox 09/30/16 12:26 09/30/16 12:00 09/30/16 11:30 09/30/16 11:00 09/30/16 10:30 09/30/16 10:00 09/30/16 09:30 09/30/16 09:00 09/30/16 08:45 100 09/30/16 08:30 09/30/16 08:00 09/30/16 07:30 09/30/16 07:00 09/30/16 06:30 09/30/16 06:16 09/30/16 06:00 09/30/16 05:46 09/30/16 05:30 09/30/16 05:16 09/30/16 05:00 09/30/16 04:59 09/30/16 04:46 09/30/16 04:30 09/30/16 04:20 09/30/16 04:16 09/30/16 04:00 09/30/16 03:46 09/30/16 03:30 09/30/16 03:16 09/30/16 03:00 09/30/16 02:46 09/30/16 02:30 09/30/16 02:16 09/30/16 02:00 09/30/16 01:46 09/30/16 01:30 09/30/16 01:16 09/30/16 01:00 09/30/16 00:46 09/30/16 00:30 09/30/16 00:19 97 09/30/16 00:16 09/30/16 00:15 09/30/16 00:00 09/29/16 23:46 09/29/16 23:30 09/29/16 23:16 09/29/16 23:00 09/29/16 22:46 09/29/16 22:30 09/29/16 22:24 09/29/16 22:16 09/29/16 22:00 09/29/16 21:46 09/29/16 21:30 09/29/16 21:16 09/29/16 21:00 09/29/16 20:46 09/29/16 20:30 09/29/16 20:16 09/29/16 20:05 09/29/16 20:00 09/29/16 19:46 09/29/16 19:42 09/29/16 19:30 09/29/16 19:16 09/29/16 19:00 09/29/16 18:46 09/29/16 18:30 09/29/16 18:16 09/29/16 18:00 09/29/16 17:46 09/29/16 17:37 09/29/16 17:35 09/29/16 17:30 09/29/16 17:16 09/29/16 17:00 09/29/16 16:46 09/29/16 16:40 97 09/29/16 16:30 09/29/16 16:16 09/29/16 16:00 09/29/16 15:46 09/29/16 15:30 09/29/16 15:16 09/29/16 15:00 09/29/16 14:46 09/29/16 14:30 09/29/16 14:16 09/29/16 14:00 09/29/16 13:46 09/29/16 13:45 09/29/16 13:30 09/29/16 13:16 09/29/16 13:00 09/29/16 12:46 09/29/16 12:30 - Physical Examination General: Other (intubated via trach) Cardiac: Positive: irregularly irregular - Labs and Meds Cardiac Enzymes 09/29/16 Range/Units 20:12 CK-MB (CK-2) < 1.0 (0.0-4.0) ng/mL Lipids 09/29/16 Range/Units 20:12 Triglycerides 137 (2-149) mg/dL Cholesterol 31 L (50-199) mg/dL HDL Cholesterol 3 L (40-59) mg/dL Cholesterol/HDL Ratio 10.33 % Comprehensive Metabolic Panel 09/30/16 Range/Units 06:10 Sodium 133 L (137-145) mmol/L Potassium 3.2 L (3.6-5.0) mmol/L Chloride 93.2 L (98-107) mmol/L Carbon Dioxide 19 L (22-30) mmol/L BUN 36 H (7-17) mg/dL Creatinine 3.2 H (0.7-1.2) mg/dL Glucose 104 H (65-100) mg/dL Calcium 6.4 L (8.4-10.2) mg/dL - Imaging and Cardiology EKG: image reviewed - Allied health notes Allied health notes reviewed: RT
--- NOTE | 2016-09-30 12:45 | Progress Note ---
Assessment and Plan (1) Acute respiratory failure with hypoxia Current Visit: Yes Status: Acute Plan to address problem: - continue aspiration precautions / address VAP bundles - continue to wean oxygen for MAP > 94% - continue bronchodilators and pulmonary toilet - tapered off systemic steroids (no active needs pulmonary-[place]) - completed empiric levaquin dosing - s/p tracheostomy - placed back on AC mode after review of ABG and secondary to increased work of breathing - increased set rate also - failed weaning trial again today with increased work of breathing - resume daily weaning attempts as tolerated in am (2) Acute CVA (cerebrovascular accident) Current Visit: Yes Status: Acute Plan to address problem: - out of tpA window (initially stopped due to uncontrolled HTN) - Left MCA teritory stroke with some midline shift on last CT - seen by neurology and prognosis for recovery of mental status guarded to poor - optimizing secondary prevention modalities now (BP, lipid anti-platelet therapy) - off systemic steroids now (started earlier for edema) (3) Hypertensive emergency Current Visit: Yes Status: Acute Plan to address problem: - stopped all antihypertensives while septic - follow cllinically (4) Obesity (BMI 35.0-39.9 without comorbidity) Current Visit: Yes Status: Chronic Plan to address problem: - nutrition consult placed for enteral formulation - follow clinically (5) Type 2 diabetes mellitus Current Visit: Yes Status: Chronic Qualifiers: Diabetes mellitus complication status: D Diabetes mellitus complication detail: D Diabetic retinopathy severity: D Proliferative retinopathy type: P Diabetes mellitus macular edema: D Diabetes mellitus correction insulin use : D Laterality: L Chronic kidney disease stage: C Plan to address problem: - continue SSI - discontinued lantus re: hypoglycemia (6) Leukocytosis (leucocytosis) Current Visit: Yes Status: Acute Qualifiers: Leukocytosis type: leukemoid reaction Qualified Code(s): D72.823 - Leukemoid reaction Plan to address problem: - has been spiking fevers also - fungemia noted - started diflucan as growing dann albicans but will follow sensitivities - will discontinue diflucan re: amiodarone interaction and begin micafungin - prn CBC's (7) Agitation Current Visit: Yes Status: Acute Plan to address problem: - prn sedation / analgesia - tapered off seroquel for now (8) Atrial fibrillation Current Visit: Yes Status: Acute Qualifiers: Atrial fibrillation type: A Plan to address problem: - failed cardioversion earlier - cardiology evaluation ongoing - on amiodarone drip - appears to have converted to sinus (9) JUANITA (acute kidney injury) Current Visit: Yes Status: Acute Plan to address problem: - on Dialysis now - oliguric - continue vasopressor support re: cardiorenal issues and to aid dialysis - BP's better but still on vasopressin - apparently RIJ CVL may be used as vascath tentatively - no plans for dialysis today - will defer to nephrology (10) Pyrexia of unknown origin Current Visit: Yes Status: Acute Plan to address problem: - will get dopplers as part of a PUO work-up to r/o VTE - continue to treat with AB;'s empirically - continue micafungin (11) Severe sepsis Current Visit: Yes Status: Acute Plan to address problem: - SvO2 estimate was 55% yesterday - volume resuscitated to boost cardiac output and tissue oxygen delivery - continue AB's and follow cultures - wean vasopressors for target MAP >/= 60-65mmHg - changed diflucan to micafungin - will need to discontinue central lines and vascath (will discontinue vascath after dialysis today then get new PICC line tomorrow before discontinuing current line as she is on pressors) - plan to replace vascath before next dialysis session / after 48hrs - care plan formulated with ID input - vascath and PICC pulled with new RIJ placed - clinically much better and almost off all vasopressors (To stop vasopressin shortly) (12) Emesis Current Visit: Yes Status: Acute Qualifiers: Vomiting type: V Vomiting Intractability: V Nausea presence: N Plan to address problem: - continue PEG to LIS - continue reglan - added erhythromycin yesterday - still with large volume effluent - will consult GI team (13) Discharge planning issues Current Visit: Yes Status: Acute Plan to address problem: - she remains critically ill on life sustaining interventions including MVS and at risk for further acute deterioration including .....30' CCT ....correction prognosis is guarded ...care plan discussed during team rounds Subjective Date of service: 09/30/16 Principal diagnosis: Acute resp failure on MVS; S/P Acute CVA; Acute Encephalopathy; JUANITA Interval history: Seen and examined at bedside; 24 hour events reviewed; nursing and respiratory care staff consulted; no adverse overnight events reported to me; resting peacefully in bed; AMS is persistent; NGT to LIS with persistent effluent; non bloody; no emesis or overt aspiration; no gross bleeding; remains oliguric; converted to sinus rhythm yesterday Objective Vital Signs - 12hr 09/30/16 09/30/16 09/30/16 00:46 01:00 01:16 Temperature Pulse Rate 115 H 105 H 104 H Pulse Rate [ From Monitor] Respiratory 28 H 28 H 25 H Rate Respiratory Rate [ Generalized] Blood Pressure 102/62 100/65 102/62 O2 Sat by Pulse 100 99 100 Oximetry O2 Sat by Pulse Oximetry [ Assessment] 09/30/16 09/30/16 09/30/16 01:30 01:46 02:00 Temperature Pulse Rate 105 H 105 H 98 H Pulse Rate [ From Monitor] Respiratory 30 H 29 H 23 Rate Respiratory Rate [ Generalized] Blood Pressure 102/62 100/65 101/46 O2 Sat by Pulse 99 99 100 Oximetry O2 Sat by Pulse Oximetry [ Assessment] 09/30/16 09/30/16 09/30/16 02:16 02:30 02:46 Temperature Pulse Rate 110 H 103 H 81 Pulse Rate [ From Monitor] Respiratory 31 H 19 26 H Rate Respiratory Rate [ Generalized] Blood Pressure 101/46 101/46 101/46 O2 Sat by Pulse 100 100 100 Oximetry O2 Sat by Pulse Oximetry [ Assessment] 09/30/16 09/30/16 09/30/16 03:00 03:16 03:30 Temperature Pulse Rate 92 H 102 H 90 Pulse Rate [ From Monitor] Respiratory 22 21 25 H Rate Respiratory Rate [ Generalized] Blood Pressure 91/52 91/52 91/52 O2 Sat by Pulse 100 100 100 Oximetry O2 Sat by Pulse Oximetry [ Assessment] 09/30/16 09/30/16 09/30/16 03:46 04:00 04:16 Temperature 98.6 F Pulse Rate 94 H 101 H 92 H Pulse Rate [ From Monitor] Respiratory 22 21 22 Rate Respiratory Rate [ Generalized] Blood Pressure 91/52 91/52 92/74 O2 Sat by Pulse 100 100 100 Oximetry O2 Sat by Pulse Oximetry [ Assessment] 09/30/16 09/30/16 09/30/16 04:20 04:30 04:46 Temperature Pulse Rate 85 97 H Pulse Rate [ 101 H From Monitor] Respiratory 25 H 20 28 H Rate Respiratory Rate [ Generalized] Blood Pressure 92/74 92/74 O2 Sat by Pulse 100 100 99 Oximetry O2 Sat by Pulse Oximetry [ Assessment] 09/30/16 09/30/16 09/30/16 04:59 05:00 05:16 Temperature Pulse Rate 97 H 84 105 H Pulse Rate [ From Monitor] Respiratory 25 H 27 H Rate Respiratory Rate [ Generalized] Blood Pressure 92/74 108/56 108/56 O2 Sat by Pulse 100 100 100 Oximetry O2 Sat by Pulse Oximetry [ Assessment] 09/30/16 09/30/16 09/30/16 05:30 05:46 06:00 Temperature Pulse Rate 107 H 99 H 114 H Pulse Rate [ From Monitor] Respiratory 26 H 22 26 H Rate Respiratory Rate [ Generalized] Blood Pressure 108/56 108/56 107/62 O2 Sat by Pulse 100 100 100 Oximetry O2 Sat by Pulse Oximetry [ Assessment] 09/30/16 09/30/16 09/30/16 06:16 06:30 07:00 Temperature Pulse Rate 116 H 120 H 108 H Pulse Rate [ From Monitor] Respiratory 36 H 28 H 21 Rate Respiratory Rate [ Generalized] Blood Pressure 107/62 107/62 114/69 O2 Sat by Pulse 100 100 100 Oximetry O2 Sat by Pulse Oximetry [ Assessment] 09/30/16 09/30/16 09/30/16 07:30 08:00 08:30 Temperature 98.5 F Pulse Rate 107 H 110 H 113 H Pulse Rate [ 115 H From Monitor] Respiratory 26 H 27 H 26 H Rate Respiratory Rate [ Generalized] Blood Pressure 99/72 100/67 103/70 O2 Sat by Pulse 100 100 100 Oximetry O2 Sat by Pulse Oximetry [ Assessment] 09/30/16 09/30/16 09/30/16 08:45 09:00 09:30 Temperature Pulse Rate 109 H 106 H 112 H Pulse Rate [ From Monitor] Respiratory 24 26 H Rate Respiratory Rate [ Generalized] Blood Pressure 103/70 113/63 126/67 O2 Sat by Pulse 100 98 99 Oximetry O2 Sat by Pulse 100 Oximetry [ Assessment] 09/30/16 09/30/16 09/30/16 10:00 10:30 11:00 Temperature Pulse Rate 105 H 109 H 111 H Pulse Rate [ From Monitor] Respiratory 23 28 H 26 H Rate Respiratory 25 H Rate [ Generalized] Blood Pressure 121/52 121/52 132/63 O2 Sat by Pulse 99 98 98 Oximetry O2 Sat by Pulse Oximetry [ Assessment] 09/30/16 09/30/16 09/30/16 11:30 12:00 12:26 Temperature 98.4 F Pulse Rate 115 H 104 H 96 H Pulse Rate [ From Monitor] Respiratory 35 H 24 Rate Respiratory Rate [ Generalized] Blood Pressure 136/73 128/65 128/65 O2 Sat by Pulse 99 97 98 Oximetry O2 Sat by Pulse Oximetry [ Assessment] Constitutional: no acute distress, other (encephalopathic; off sedation now) Eyes: non-icteric, other (tracheostomy tube in midline of neck) ENT: oropharynx moist Neck: supple, no lymphadenopathy Effort: mildly labored Ascultation: Bilateral: diminished breath sounds, rales (bases) Cardiovascular: regular rate and rhythm Gastrointestinal: hypoactive bowel sounds, soft, non-tender, non-distended Integumentary: normal Extremities: no cyanosis, no edema, pulses normal, no ischemia or petechiae Neurologic: pupils equal and round, other (sedated) Psychiatric: other (unable to assess) CBC and BMP: 09/29/16 06:45 09/30/16 06:10 ABG, PT/INR, D-dimer: ABG POC ABG pH 7.459 (7.35-7.45) H 09/27/16 15:00 POC ABG pCO2 27.1 (35-45) L 09/27/16 15:00 POC ABG pO2 140 (80-105) H 09/27/16 15:00 POC ABG HCO3 19.3 09/27/16 15:00 POC ABG Total CO2 20 09/27/16 15:00 POC ABG O2 Sat 99 09/27/16 15:00 PT/INR, D-dimer PT 13.8 Sec. (12.2-14.9) 09/15/16 05:00 INR 1.01 (0.87-1.13) 09/15/16 05:00 Abnormal lab findings: Abnormal Labs 09/03/16 09/03/16 09/03/16 12:12 15:07 16:20 WBC RBC Hgb Hct MCV MCH MCHC RDW Plt Count Lymph % (Auto) [place] % (Auto) Lymph # [place] # Seg Neutrophils % Seg Neuts % (Manual) Lymphocytes % (Manual) Monocytes % (Manual) Eosinophils % (Manual) Basophils % (Manual) Seg Neutrophils # Seg Neutrophils # Man Lymphocytes # (Manual) Monocytes # (Manual) Eosinophils # (Manual) Fibrinogen dRVVT Confirm Interp Factor V Activity POC ABG pH 7.452 H POC ABG pCO2 POC ABG pO2 Sodium Potassium Chloride Carbon Dioxide BUN Creatinine Glucose POC Glucose 178 H Lactic Acid Calcium Phosphorus 2.20 L Magnesium 1.60 L Direct Bilirubin Troponin T C-Reactive Protein Total Protein Albumin Triglycerides Cholesterol LDL Cholesterol Direct HDL Cholesterol Urine WBC (Auto) Urine Creatinine Urine Total Protein Vancomycin Trough Rheumatoid Factor Complement C4 Crossmatch 09/03/16 09/03/16 09/03/16 17:57 17:58 23:50 WBC RBC Hgb Hct MCV MCH MCHC RDW Plt Count Lymph % (Auto) [place] % (Auto) Lymph # [place] # Seg Neutrophils % Seg Neuts % (Manual) Lymphocytes % (Manual) Monocytes % (Manual) Eosinophils % (Manual) Basophils % (Manual) Seg Neutrophils # Seg Neutrophils # Man Lymphocytes # (Manual) Monocytes # (Manual) Eosinophils # (Manual) Fibrinogen dRVVT Confirm Interp Factor V Activity POC ABG pH POC ABG pCO2 POC ABG pO2 Sodium Potassium Chloride Carbon Dioxide BUN Creatinine Glucose POC Glucose 162 H 145 H Lactic Acid Calcium Phosphorus 2.30 L Magnesium Direct Bilirubin Troponin T C-Reactive Protein Total Protein Albumin Triglycerides Cholesterol LDL Cholesterol Direct HDL Cholesterol Urine WBC (Auto) Urine Creatinine Urine Total Protein Vancomycin Trough Rheumatoid Factor Complement C4 Crossmatch 09/04/16 09/04/16 09/04/16 03:31 03:31 05:42 WBC RBC Hgb 9.7 L D Hct MCV 72 L MCH 23 L MCHC RDW 17.5 H Plt Count Lymph % (Auto) 11.1 L [place] % (Auto) Lymph # [place] # Seg Neutrophils % 84.3 H Seg Neuts % (Manual) Lymphocytes % (Manual) Monocytes % (Manual) Eosinophils % (Manual) Basophils % (Manual) Seg Neutrophils # 8.9 H Seg Neutrophils # Man Lymphocytes # (Manual) Monocytes # (Manual) Eosinophils # (Manual) Fibrinogen dRVVT Confirm Interp Factor V Activity POC ABG pH POC ABG pCO2 POC ABG pO2 Sodium 135 L Potassium 2.9 L* Chloride 97.2 L Carbon Dioxide 19 L BUN Creatinine 1.7 H Glucose 170 H POC Glucose 152 H Lactic Acid Calcium Phosphorus Magnesium Direct Bilirubin Troponin T C-Reactive Protein Total Protein Albumin Triglycerides 160 H Cholesterol LDL Cholesterol Direct HDL Cholesterol 31 L Urine WBC (Auto) Urine Creatinine Urine Total Protein Vancomycin Trough Rheumatoid Factor Complement C4 Crossmatch 09/04/16 09/04/16 09/04/16 11:34 17:46 23:29 WBC RBC Hgb Hct MCV MCH MCHC RDW Plt Count Lymph % (Auto) [place] % (Auto) Lymph # [place] # Seg Neutrophils % Seg Neuts % (Manual) Lymphocytes % (Manual) Monocytes % (Manual) Eosinophils % (Manual) Basophils % (Manual) Seg Neutrophils # Seg Neutrophils # Man Lymphocytes # (Manual) Monocytes # (Manual) Eosinophils # (Manual) Fibrinogen dRVVT Confirm Interp Factor V Activity POC ABG pH POC ABG pCO2 POC ABG pO2 Sodium Potassium Chloride Carbon Dioxide BUN Creatinine Glucose POC Glucose 165 H 210 H 139 H Lactic Acid Calcium Phosphorus Magnesium Direct Bilirubin Troponin T C-Reactive Protein Total Protein Albumin Triglycerides Cholesterol LDL Cholesterol Direct HDL Cholesterol Urine WBC (Auto) Urine Creatinine Urine Total Protein Vancomycin Trough Rheumatoid Factor Complement C4 Crossmatch 09/05/16 09/05/16 09/05/16 04:05 04:05 05:38 WBC RBC Hgb Hct MCV 76 L D MCH 23 L MCHC RDW 17.8 H Plt Count Lymph % (Auto) [place] % (Auto) Lymph # [place] # Seg Neutrophils % Seg Neuts % (Manual) Lymphocytes % (Manual) Monocytes % (Manual) Eosinophils % (Manual) Basophils % (Manual) Seg Neutrophils # Seg Neutrophils # Man Lymphocytes # (Manual) Monocytes # (Manual) Eosinophils # (Manual) Fibrinogen dRVVT Confirm Interp Factor V Activity POC ABG pH POC ABG pCO2 POC ABG pO2 Sodium 134 L Potassium Chloride Carbon Dioxide 18 L BUN Creatinine 1.8 H Glucose 192 H POC Glucose 175 H Lactic Acid Calcium Phosphorus Magnesium Direct Bilirubin Troponin T C-Reactive Protein Total Protein Albumin Triglycerides Cholesterol LDL Cholesterol Direct HDL Cholesterol Urine WBC (Auto) Urine Creatinine Urine Total Protein Vancomycin Trough Rheumatoid Factor Complement C4 Crossmatch 09/05/16 09/05/16 09/05/16 11:38 17:48 23:22 WBC RBC Hgb Hct MCV MCH MCHC RDW Plt Count Lymph % (Auto) [place] % (Auto) Lymph # [place] # Seg Neutrophils % Seg Neuts % (Manual) Lymphocytes % (Manual) Monocytes % (Manual) Eosinophils % (Manual) Basophils % (Manual) Seg Neutrophils # Seg Neutrophils # Man Lymphocytes # (Manual) Monocytes # (Manual) Eosinophils # (Manual) Fibrinogen dRVVT Confirm Interp Factor V Activity POC ABG pH POC ABG pCO2 POC ABG pO2 Sodium Potassium Chloride Carbon Dioxide BUN Creatinine Glucose POC Glucose 164 H 186 H 195 H Lactic Acid Calcium Phosphorus Magnesium Direct Bilirubin Troponin T C-Reactive Protein Total Protein Albumin Triglycerides Cholesterol LDL Cholesterol Direct HDL Cholesterol Urine WBC (Auto) Urine Creatinine Urine Total Protein Vancomycin Trough Rheumatoid Factor Complement C4 Crossmatch 09/06/16 09/06/16 09/06/16 04:12 05:59 07:32 WBC RBC Hgb Hct MCV MCH MCHC RDW Plt Count Lymph % (Auto) [place] % (Auto) Lymph # [place] # Seg Neutrophils % Seg Neuts % (Manual) Lymphocytes % (Manual) Monocytes % (Manual) Eosinophils % (Manual) Basophils % (Manual) Seg Neutrophils # Seg Neutrophils # Man Lymphocytes # (Manual) Monocytes # (Manual) Eosinophils # (Manual) Fibrinogen dRVVT Confirm Interp Factor V Activity POC ABG pH 7.514 H POC ABG pCO2 29.1 L POC ABG pO2 72 L Sodium 133 L Potassium 3.4 L Chloride 94.9 L Carbon Dioxide 19 L BUN 30 H Creatinine 2.1 H Glucose 139 H POC Glucose 146 H Lactic Acid Calcium Phosphorus Magnesium Direct Bilirubin Troponin T C-Reactive Protein Total Protein Albumin Triglycerides Cholesterol LDL Cholesterol Direct HDL Cholesterol Urine WBC (Auto) Urine Creatinine Urine Total Protein Vancomycin Trough Rheumatoid Factor Complement C4 Crossmatch 09/06/16 09/06/16 09/06/16 11:57 17:58 19:02 WBC RBC Hgb Hct MCV MCH MCHC RDW Plt Count Lymph % (Auto) [place] % (Auto) Lymph # [place] # Seg Neutrophils % Seg Neuts % (Manual) Lymphocytes % (Manual) Monocytes % (Manual) Eosinophils % (Manual) Basophils % (Manual) Seg Neutrophils # Seg Neutrophils # Man Lymphocytes # (Manual) Monocytes # (Manual) Eosinophils # (Manual) Fibrinogen dRVVT Confirm Interp Factor V Activity POC ABG pH 7.465 H POC ABG pCO2 32.0 L POC ABG pO2 Sodium Potassium Chloride Carbon Dioxide BUN Creatinine Glucose POC Glucose 165 H 160 H Lactic Acid Calcium Phosphorus Magnesium Direct Bilirubin Troponin T C-Reactive Protein Total Protein Albumin Triglycerides Cholesterol LDL Cholesterol Direct HDL Cholesterol Urine WBC (Auto) Urine Creatinine Urine Total Protein Vancomycin Trough Rheumatoid Factor Complement C4 Crossmatch 09/06/16 09/07/16 09/07/16 23:45 02:47 02:47 WBC RBC Hgb Hct MCV MCH MCHC RDW Plt Count Lymph % (Auto) [place] % (Auto) Lymph # [place] # Seg Neutrophils % Seg Neuts % (Manual) Lymphocytes % (Manual) Monocytes % (Manual) Eosinophils % (Manual) Basophils % (Manual) Seg Neutrophils # Seg Neutrophils # Man Lymphocytes # (Manual) Monocytes # (Manual) Eosinophils # (Manual) Fibrinogen dRVVT Confirm Interp Factor V Activity POC ABG pH POC ABG pCO2 POC ABG pO2 Sodium Potassium Chloride Carbon Dioxide BUN Creatinine Glucose POC Glucose 204 H Lactic Acid Calcium Phosphorus Magnesium Direct Bilirubin Troponin T C-Reactive Protein Total Protein Albumin Triglycerides Cholesterol LDL Cholesterol Direct HDL Cholesterol Urine WBC (Auto) 68.0 H Urine Creatinine 106.1 H Urine Total Protein Vancomycin Trough Rheumatoid Factor Complement C4 Crossmatch 09/07/16 09/07/16 09/07/16 04:50 06:19 06:39 WBC RBC Hgb Hct MCV MCH MCHC RDW Plt Count Lymph % (Auto) [place] % (Auto) Lymph # [place] # Seg Neutrophils % Seg Neuts % (Manual) Lymphocytes % (Manual) Monocytes % (Manual) Eosinophils % (Manual) Basophils % (Manual) Seg Neutrophils # Seg Neutrophils # Man Lymphocytes # (Manual) Monocytes # (Manual) Eosinophils # (Manual) Fibrinogen dRVVT Confirm Interp Factor V Activity POC ABG pH 7.457 H POC ABG pCO2 32.1 L POC ABG pO2 76 L Sodium 132 L Potassium Chloride 94.7 L Carbon Dioxide BUN 53 H Creatinine 2.9 H Glucose 151 H POC Glucose 149 H Lactic Acid Calcium Phosphorus Magnesium Direct Bilirubin Troponin T C-Reactive Protein Total Protein Albumin Triglycerides Cholesterol LDL Cholesterol Direct HDL Cholesterol Urine WBC (Auto) Urine Creatinine Urine Total Protein Vancomycin Trough Rheumatoid Factor Complement C4 Crossmatch 09/07/16 09/07/16 09/07/16 09:20 11:43 11:43 WBC 19.4 H RBC Hgb 8.3 L Hct 26.4 L D MCV 72 L D MCH 22 L MCHC RDW 17.9 H Plt Count Lymph % (Auto) 8.5 L [place] % (Auto) Lymph # [place] # 1.0 H Seg Neutrophils % 85.8 H Seg Neuts % (Manual) Lymphocytes % (Manual) Monocytes % (Manual) Eosinophils % (Manual) Basophils % (Manual) Seg Neutrophils # 16.6 H Seg Neutrophils # Man Lymphocytes # (Manual) Monocytes # (Manual) Eosinophils # (Manual) Fibrinogen dRVVT Confirm Interp Factor V Activity POC ABG pH POC ABG pCO2 POC ABG pO2 Sodium 134 L Potassium Chloride 97.2 L Carbon Dioxide 20 L BUN 58 H Creatinine 2.9 H Glucose 147 H POC Glucose Lactic Acid Calcium Phosphorus 2.40 L Magnesium 2.40 H Direct Bilirubin Troponin T C-Reactive Protein Total Protein 5.8 L Albumin 2.2 L Triglycerides Cholesterol LDL Cholesterol Direct HDL Cholesterol Urine WBC (Auto) Urine Creatinine Urine Total Protein Vancomycin Trough Rheumatoid Factor Complement C4 58 H Crossmatch 09/07/16 09/07/16 09/07/16 11:50 16:00 17:31 WBC RBC Hgb Hct MCV MCH MCHC RDW Plt Count Lymph % (Auto) [place] % (Auto) Lymph # [place] # Seg Neutrophils % Seg Neuts % (Manual) Lymphocytes % (Manual) Monocytes % (Manual) Eosinophils % (Manual) Basophils % (Manual) Seg Neutrophils # Seg Neutrophils # Man Lymphocytes # (Manual) Monocytes # (Manual) Eosinophils # (Manual) Fibrinogen dRVVT Confirm Interp Factor V Activity POC ABG pH POC ABG pCO2 POC ABG pO2 158 H Sodium Potassium Chloride Carbon Dioxide BUN Creatinine Glucose POC Glucose 175 H Lactic Acid Calcium Phosphorus Magnesium Direct Bilirubin Troponin T C-Reactive Protein Total Protein Albumin Triglycerides Cholesterol LDL Cholesterol Direct HDL Cholesterol Urine WBC (Auto) Urine Creatinine 66.3 H Urine Total Protein Vancomycin Trough Rheumatoid Factor Complement C4 Crossmatch 09/07/16 09/08/16 09/08/16 23:50 05:46 06:18 WBC 17.8 H RBC 3.58 L Hgb 8.1 L Hct 25.5 L MCV 71 L MCH 23 L MCHC RDW 18.4 H Plt Count Lymph % (Auto) [place] % (Auto) Lymph # [place] # Seg Neutrophils % Seg Neuts % (Manual) 92.0 H Lymphocytes % (Manual) 6.0 L Monocytes % (Manual) Eosinophils % (Manual) Basophils % (Manual) Seg Neutrophils # Seg Neutrophils # Man 16.4 H Lymphocytes # (Manual) 1.1 L Monocytes # (Manual) Eosinophils # (Manual) Fibrinogen dRVVT Confirm Interp Factor V Activity POC ABG pH POC ABG pCO2 34.3 L POC ABG pO2 71 L Sodium Potassium Chloride Carbon Dioxide BUN Creatinine Glucose POC Glucose 216 H Lactic Acid Calcium Phosphorus Magnesium Direct Bilirubin Troponin T C-Reactive Protein Total Protein Albumin Triglycerides Cholesterol LDL Cholesterol Direct HDL Cholesterol Urine WBC (Auto) Urine Creatinine Urine Total Protein Vancomycin Trough Rheumatoid Factor Complement C4 Crossmatch 09/08/16 09/08/16 09/08/16 06:18 06:51 10:55 WBC RBC Hgb Hct MCV MCH MCHC RDW Plt Count Lymph % (Auto) [place] % (Auto) Lymph # [place] # Seg Neutrophils % Seg Neuts % (Manual) Lymphocytes % (Manual) Monocytes % (Manual) Eosinophils % (Manual) Basophils % (Manual) Seg Neutrophils # Seg Neutrophils # Man Lymphocytes # (Manual) Monocytes # (Manual) Eosinophils # (Manual) Fibrinogen dRVVT Confirm Interp Factor V Activity POC ABG pH POC ABG pCO2 POC ABG pO2 Sodium 133 L Potassium Chloride 96.9 L Carbon Dioxide 20 L BUN 63 H Creatinine 2.7 H Glucose 195 H POC Glucose 204 H 169 H Lactic Acid Calcium Phosphorus Magnesium Direct Bilirubin Troponin T C-Reactive Protein Total Protein Albumin Triglycerides Cholesterol LDL Cholesterol Direct HDL Cholesterol Urine WBC (Auto) Urine Creatinine Urine Total Protein Vancomycin Trough Rheumatoid Factor Complement C4 Crossmatch 09/08/16 09/08/16 09/08/16 11:48 11:48 11:48 WBC RBC Hgb Hct MCV MCH MCHC RDW Plt Count Lymph % (Auto) [place] % (Auto) Lymph # [place] # Seg Neutrophils % Seg Neuts % (Manual) Lymphocytes % (Manual) Monocytes % (Manual) Eosinophils % (Manual) Basophils % (Manual) Seg Neutrophils # Seg Neutrophils # Man Lymphocytes # (Manual) Monocytes # (Manual) Eosinophils # (Manual) Fibrinogen 750 H dRVVT Confirm Interp Factor V Activity POC ABG pH POC ABG pCO2 POC ABG pO2 Sodium Potassium Chloride Carbon Dioxide BUN Creatinine Glucose POC Glucose Lactic Acid Calcium Phosphorus Magnesium Direct Bilirubin Troponin T C-Reactive Protein 15.70 H Total Protein Albumin Triglycerides Cholesterol LDL Cholesterol Direct HDL Cholesterol Urine WBC (Auto) Urine Creatinine Urine Total Protein Vancomycin Trough Rheumatoid Factor 24 H Complement C4 Crossmatch 09/08/16 09/08/16 09/09/16 15:35 18:25 00:24 WBC RBC Hgb Hct MCV MCH MCHC RDW Plt Count Lymph % (Auto) [place] % (Auto) Lymph # [place] # Seg Neutrophils % Seg Neuts % (Manual) Lymphocytes % (Manual) Monocytes % (Manual) Eosinophils % (Manual) Basophils % (Manual) Seg Neutrophils # Seg Neutrophils # Man Lymphocytes # (Manual) Monocytes # (Manual) Eosinophils # (Manual) Fibrinogen dRVVT Confirm Interp Factor V Activity 182 H POC ABG pH POC ABG pCO2 POC ABG pO2 Sodium Potassium Chloride Carbon Dioxide BUN Creatinine Glucose POC Glucose 184 H 216 H Lactic Acid Calcium Phosphorus Magnesium Direct Bilirubin Troponin T C-Reactive Protein Total Protein Albumin Triglycerides Cholesterol LDL Cholesterol Direct HDL Cholesterol Urine WBC (Auto) Urine Creatinine Urine Total Protein Vancomycin Trough Rheumatoid Factor Complement C4 Crossmatch 09/09/16 09/09/16 09/09/16 03:00 03:00 04:04 WBC 27.9 H RBC Hgb 8.7 L Hct 28.1 L MCV 72 L MCH 22 L MCHC RDW 18.4 H Plt Count 485 H Lymph % (Auto) [place] % (Auto) Lymph # [place] # Seg Neutrophils % Seg Neuts % (Manual) 77.0 H Lymphocytes % (Manual) 9.0 L Monocytes % (Manual) Eosinophils % (Manual) Basophils % (Manual) Seg Neutrophils # Seg Neutrophils # Man 21.5 H Lymphocytes # (Manual) Monocytes # (Manual) 2.0 H Eosinophils # (Manual) Fibrinogen dRVVT Confirm Interp Factor V Activity POC ABG pH POC ABG pCO2 POC ABG pO2 121 H Sodium 135 L Potassium Chloride 96.3 L Carbon Dioxide 21 L BUN 83 H Creatinine 3.0 H Glucose 135 H POC Glucose Lactic Acid Calcium Phosphorus Magnesium Direct Bilirubin Troponin T C-Reactive Protein Total Protein Albumin Triglycerides Cholesterol LDL Cholesterol Direct HDL Cholesterol Urine WBC (Auto) Urine Creatinine Urine Total Protein Vancomycin Trough Rheumatoid Factor Complement C4 Crossmatch 09/09/16 09/09/16 09/09/16 05:41 11:55 14:13 WBC RBC Hgb Hct MCV MCH MCHC RDW Plt Count Lymph % (Auto) [place] % (Auto) Lymph # [place] # Seg Neutrophils % Seg Neuts % (Manual) Lymphocytes % (Manual) Monocytes % (Manual) Eosinophils % (Manual) Basophils % (Manual) Seg Neutrophils # Seg Neutrophils # Man Lymphocytes # (Manual) Monocytes # (Manual) Eosinophils # (Manual) Fibrinogen dRVVT Confirm Interp Factor V Activity POC ABG pH POC ABG pCO2 POC ABG pO2 Sodium Potassium Chloride Carbon Dioxide BUN Creatinine Glucose POC Glucose 155 H 186 H Lactic Acid Calcium Phosphorus Magnesium Direct Bilirubin Troponin T C-Reactive Protein Total Protein Albumin Triglycerides Cholesterol LDL Cholesterol Direct HDL Cholesterol Urine WBC (Auto) 25.0 H Urine Creatinine Urine Total Protein Vancomycin Trough Rheumatoid Factor Complement C4 Crossmatch 09/09/16 09/09/16 09/10/16 17:33 23:13 05:09 WBC RBC Hgb Hct MCV MCH MCHC RDW Plt Count Lymph % (Auto) [place] % (Auto) Lymph # [place] # Seg Neutrophils % Seg Neuts % (Manual) Lymphocytes % (Manual) Monocytes % (Manual) Eosinophils % (Manual) Basophils % (Manual) Seg Neutrophils # Seg Neutrophils # Man Lymphocytes # (Manual) Monocytes # (Manual) Eosinophils # (Manual) Fibrinogen dRVVT Confirm Interp Factor V Activity POC ABG pH POC ABG pCO2 POC ABG pO2 74 L Sodium Potassium Chloride Carbon Dioxide BUN Creatinine Glucose POC Glucose 211 H 215 H Lactic Acid Calcium Phosphorus Magnesium Direct Bilirubin Troponin T C-Reactive Protein Total Protein Albumin Triglycerides Cholesterol LDL Cholesterol Direct HDL Cholesterol Urine WBC (Auto) Urine Creatinine Urine Total Protein Vancomycin Trough Rheumatoid Factor Complement C4 Crossmatch 09/10/16 09/10/16 09/10/16 05:17 05:17 11:31 WBC 15.8 H RBC 3.25 L Hgb 7.3 L Hct 22.9 L MCV 71 L MCH 23 L MCHC RDW 18.4 H Plt Count Lymph % (Auto) [place] % (Auto) Lymph # [place] # Seg Neutrophils % Seg Neuts % (Manual) 91.0 H Lymphocytes % (Manual) 4.0 L Monocytes % (Manual) Eosinophils % (Manual) Basophils % (Manual) Seg Neutrophils # Seg Neutrophils # Man 14.4 H Lymphocytes # (Manual) 0.6 L Monocytes # (Manual) Eosinophils # (Manual) Fibrinogen dRVVT Confirm Interp Factor V Activity POC ABG pH POC ABG pCO2 POC ABG pO2 Sodium Potassium Chloride Carbon Dioxide 21 L BUN 93 H Creatinine 2.9 H Glucose 146 H POC Glucose 188 H Lactic Acid Calcium 8.1 L Phosphorus Magnesium Direct Bilirubin Troponin T C-Reactive Protein Total Protein Albumin Triglycerides Cholesterol LDL Cholesterol Direct HDL Cholesterol Urine WBC (Auto) Urine Creatinine Urine Total Protein Vancomycin Trough Rheumatoid Factor Complement C4 Crossmatch 09/10/16 09/10/16 09/10/16 13:17 17:20 23:32 WBC RBC Hgb Hct MCV MCH MCHC RDW Plt Count Lymph % (Auto) [place] % (Auto) Lymph # [place] # Seg Neutrophils % Seg Neuts % (Manual) Lymphocytes % (Manual) Monocytes % (Manual) Eosinophils % (Manual) Basophils % (Manual) Seg Neutrophils # Seg Neutrophils # Man Lymphocytes # (Manual) Monocytes # (Manual) Eosinophils # (Manual) Fibrinogen dRVVT Confirm Interp Factor V Activity POC ABG pH POC ABG pCO2 POC ABG pO2 Sodium Potassium Chloride Carbon Dioxide BUN Creatinine Glucose POC Glucose 199 H 186 H Lactic Acid Calcium Phosphorus Magnesium Direct Bilirubin Troponin T C-Reactive Protein Total Protein Albumin Triglycerides Cholesterol LDL Cholesterol Direct HDL Cholesterol Urine WBC (Auto) Urine Creatinine Urine Total Protein Vancomycin Trough Rheumatoid Factor Complement C4 Crossmatch See Detail 09/11/16 09/11/16 09/11/16 05:10 05:10 05:17 WBC 28.4 H RBC Hgb 9.2 L Hct 29.3 L D MCV 73 L MCH 23 L MCHC RDW 18.9 H Plt Count 452 H Lymph % (Auto) [place] % (Auto) Lymph # [place] # Seg Neutrophils % Seg Neuts % (Manual) 89.5 H Lymphocytes % (Manual) 2.0 L Monocytes % (Manual) Eosinophils % (Manual) Basophils % (Manual) Seg Neutrophils # Seg Neutrophils # Man 25.4 H Lymphocytes # (Manual) 0.6 L Monocytes # (Manual) 1.3 H Eosinophils # (Manual) Fibrinogen dRVVT Confirm Interp Factor V Activity POC ABG pH POC ABG pCO2 POC ABG pO2 Sodium 136 L Potassium Chloride Carbon Dioxide 18 L BUN 107 H Creatinine 2.6 H Glucose 187 H POC Glucose 230 H Lactic Acid Calcium 8.3 L Phosphorus Magnesium Direct Bilirubin Troponin T C-Reactive Protein Total Protein Albumin Triglycerides Cholesterol LDL Cholesterol Direct HDL Cholesterol Urine WBC (Auto) Urine Creatinine Urine Total Protein Vancomycin Trough Rheumatoid Factor Complement C4 Crossmatch 09/11/16 09/11/16 09/11/16 05:55 12:02 17:32 WBC RBC Hgb Hct MCV MCH MCHC RDW Plt Count Lymph % (Auto) [place] % (Auto) Lymph # [place] # Seg Neutrophils % Seg Neuts % (Manual) Lymphocytes % (Manual) Monocytes % (Manual) Eosinophils % (Manual) Basophils % (Manual) Seg Neutrophils # Seg Neutrophils # Man Lymphocytes # (Manual) Monocytes # (Manual) Eosinophils # (Manual) Fibrinogen dRVVT Confirm Interp Factor V Activity POC ABG pH POC ABG pCO2 33.8 L POC ABG pO2 Sodium Potassium Chloride Carbon Dioxide BUN Creatinine Glucose POC Glucose 191 H 239 H Lactic Acid Calcium Phosphorus Magnesium Direct Bilirubin Troponin T C-Reactive Protein Total Protein Albumin Triglycerides Cholesterol LDL Cholesterol Direct HDL Cholesterol Urine WBC (Auto) Urine Creatinine Urine Total Protein Vancomycin Trough Rheumatoid Factor Complement C4 Crossmatch 09/11/16 09/12/16 09/12/16 23:52 05:09 05:32 WBC RBC Hgb Hct MCV MCH MCHC RDW Plt Count Lymph % (Auto) [place] % (Auto) Lymph # [place] # Seg Neutrophils % Seg Neuts % (Manual) Lymphocytes % (Manual) Monocytes % (Manual) Eosinophils % (Manual) Basophils % (Manual) Seg Neutrophils # Seg Neutrophils # Man Lymphocytes # (Manual) Monocytes # (Manual) Eosinophils # (Manual) Fibrinogen dRVVT Confirm Interp Factor V Activity POC ABG pH POC ABG pCO2 34.6 L POC ABG pO2 Sodium Potassium Chloride Carbon Dioxide BUN Creatinine Glucose POC Glucose 265 H 184 H Lactic Acid Calcium Phosphorus Magnesium Direct Bilirubin Troponin T C-Reactive Protein Total Protein Albumin Triglycerides Cholesterol LDL Cholesterol Direct HDL Cholesterol Urine WBC (Auto) Urine Creatinine Urine Total Protein Vancomycin Trough Rheumatoid Factor Complement C4 Crossmatch 09/12/16 09/12/16 09/12/16 06:45 06:45 07:22 WBC 31.7 H RBC 3.54 L Hgb 8.3 L Hct 25.9 L MCV 73 L MCH 23 L MCHC RDW 18.9 H Plt Count Lymph % (Auto) [place] % (Auto) Lymph # [place] # Seg Neutrophils % Seg Neuts % (Manual) 88.5 H Lymphocytes % (Manual) 4.5 L Monocytes % (Manual) Eosinophils % (Manual) Basophils % (Manual) Seg Neutrophils # Seg Neutrophils # Man 28.1 H Lymphocytes # (Manual) Monocytes # (Manual) 1.0 H Eosinophils # (Manual) Fibrinogen dRVVT Confirm Interp Factor V Activity POC ABG pH POC ABG pCO2 POC ABG pO2 Sodium Potassium Chloride Carbon Dioxide 20 L BUN 115 H Creatinine 2.7 H Glucose 165 H POC Glucose Lactic Acid Calcium 8.0 L Phosphorus Magnesium Direct Bilirubin Troponin T C-Reactive Protein Total Protein Albumin Triglycerides 217 H Cholesterol LDL Cholesterol Direct HDL Cholesterol Urine WBC (Auto) Urine Creatinine Urine Total Protein Vancomycin Trough Rheumatoid Factor Complement C4 Crossmatch 09/12/16 09/12/16 09/12/16 07:22 09:59 12:21 WBC RBC Hgb Hct MCV MCH MCHC RDW Plt Count Lymph % (Auto) [place] % (Auto) Lymph # [place] # Seg Neutrophils % Seg Neuts % (Manual) Lymphocytes % (Manual) Monocytes % (Manual) Eosinophils % (Manual) Basophils % (Manual) Seg Neutrophils # Seg Neutrophils # Man Lymphocytes # (Manual) Monocytes # (Manual) Eosinophils # (Manual) Fibrinogen dRVVT Confirm Interp Positive H Factor V Activity POC ABG pH POC ABG pCO2 POC ABG pO2 Sodium Potassium Chloride Carbon Dioxide BUN Creatinine Glucose POC Glucose 224 H Lactic Acid Calcium Phosphorus Magnesium Direct Bilirubin Troponin T C-Reactive Protein 1.70 H Total Protein Albumin Triglycerides Cholesterol LDL Cholesterol Direct HDL Cholesterol Urine WBC (Auto) Urine Creatinine Urine Total Protein Vancomycin Trough Rheumatoid Factor Complement C4 Crossmatch 09/12/16 09/12/16 09/13/16 16:51 23:28 04:00 WBC 45.0 H* RBC Hgb 9.4 L Hct MCV 75 L MCH 23 L MCHC RDW 19.0 H Plt Count 470 H Lymph % (Auto) [place] % (Auto) Lymph # [place] # Seg Neutrophils % Seg Neuts % (Manual) 89.0 H Lymphocytes % (Manual) 5.0 L Monocytes % (Manual) Eosinophils % (Manual) Basophils % (Manual) Seg Neutrophils # Seg Neutrophils # Man 40.1 H Lymphocytes # (Manual) Monocytes # (Manual) Eosinophils # (Manual) Fibrinogen dRVVT Confirm Interp Factor V Activity POC ABG pH POC ABG pCO2 POC ABG pO2 Sodium Potassium Chloride Carbon Dioxide BUN Creatinine Glucose POC Glucose 169 H 150 H Lactic Acid Calcium Phosphorus Magnesium Direct Bilirubin Troponin T C-Reactive Protein Total Protein Albumin Triglycerides Cholesterol LDL Cholesterol Direct HDL Cholesterol Urine WBC (Auto) Urine Creatinine Urine Total Protein Vancomycin Trough Rheumatoid Factor Complement C4 Crossmatch 09/13/16 09/13/16 09/13/16 04:00 11:26 17:31 WBC RBC Hgb Hct MCV MCH MCHC RDW Plt Count Lymph % (Auto) [place] % (Auto) Lymph # [place] # Seg Neutrophils % Seg Neuts % (Manual) Lymphocytes % (Manual) Monocytes % (Manual) Eosinophils % (Manual) Basophils % (Manual) Seg Neutrophils # Seg Neutrophils # Man Lymphocytes # (Manual) Monocytes # (Manual) Eosinophils # (Manual) Fibrinogen dRVVT Confirm Interp Factor V Activity POC ABG pH POC ABG pCO2 POC ABG pO2 Sodium Potassium Chloride Carbon Dioxide 20 L BUN 116 H Creatinine 3.0 H Glucose 172 H POC Glucose 140 H 183 H Lactic Acid Calcium Phosphorus Magnesium Direct Bilirubin Troponin T C-Reactive Protein Total Protein 6.2 L Albumin 2.9 L Triglycerides Cholesterol LDL Cholesterol Direct HDL Cholesterol Urine WBC (Auto) Urine Creatinine Urine Total Protein Vancomycin Trough Rheumatoid Factor Complement C4 Crossmatch 09/13/16 09/14/16 09/14/16 23:23 04:06 04:07 WBC 29.4 H RBC Hgb 8.9 L Hct 27.3 L MCV 75 L MCH 24 L MCHC RDW 19.1 H Plt Count Lymph % (Auto) [place] % (Auto) Lymph # [place] # Seg Neutrophils % Seg Neuts % (Manual) 84.0 H Lymphocytes % (Manual) 6.0 L Monocytes % (Manual) 9.0 H Eosinophils % (Manual) Basophils % (Manual) Seg Neutrophils # Seg Neutrophils # Man 24.7 H Lymphocytes # (Manual) Monocytes # (Manual) 2.6 H Eosinophils # (Manual) Fibrinogen dRVVT Confirm Interp Factor V Activity POC ABG pH 7.342 L POC ABG pCO2 POC ABG pO2 116 H Sodium Potassium Chloride Carbon Dioxide BUN Creatinine Glucose POC Glucose 154 H Lactic Acid Calcium Phosphorus Magnesium Direct Bilirubin Troponin T C-Reactive Protein Total Protein Albumin Triglycerides Cholesterol LDL Cholesterol Direct HDL Cholesterol Urine WBC (Auto) Urine Creatinine Urine Total Protein Vancomycin Trough Rheumatoid Factor Complement C4 Crossmatch 09/14/16 09/14/16 09/14/16 04:07 05:29 12:19 WBC RBC Hgb Hct MCV MCH MCHC RDW Plt Count Lymph % (Auto) [place] % (Auto) Lymph # [place] # Seg Neutrophils % Seg Neuts % (Manual) Lymphocytes % (Manual) Monocytes % (Manual) Eosinophils % (Manual) Basophils % (Manual) Seg Neutrophils # Seg Neutrophils # Man Lymphocytes # (Manual) Monocytes # (Manual) Eosinophils # (Manual) Fibrinogen dRVVT Confirm Interp Factor V Activity POC ABG pH POC ABG pCO2 POC ABG pO2 Sodium 136 L Potassium Chloride Carbon Dioxide 18 L BUN 121 H Creatinine 2.8 H Glucose 214 H POC Glucose 239 H 181 H Lactic Acid Calcium Phosphorus Magnesium Direct Bilirubin Troponin T C-Reactive Protein Total Protein Albumin Triglycerides Cholesterol LDL Cholesterol Direct HDL Cholesterol Urine WBC (Auto) Urine Creatinine Urine Total Protein Vancomycin Trough Rheumatoid Factor Complement C4 Crossmatch 09/14/16 09/14/1617 18:12 23:37 05:00 WBC 26.1 H RBC 3.05 L Hgb 7.2 L Hct 22.9 L MCV 75 L MCH 24 L MCHC RDW 19.0 H Plt Count Lymph % (Auto) [place] % (Auto) Lymph # [place] # Seg Neutrophils % Seg Neuts % (Manual) Lymphocytes % (Manual) Monocytes % (Manual) Eosinophils % (Manual) Basophils % (Manual) Seg Neutrophils # Seg Neutrophils # Man Lymphocytes # (Manual) Monocytes # (Manual) Eosinophils # (Manual) Fibrinogen dRVVT Confirm Interp Factor V Activity POC ABG pH POC ABG pCO2 POC ABG pO2 Sodium Potassium Chloride Carbon Dioxide BUN Creatinine Glucose POC Glucose 266 H 154 H Lactic Acid Calcium Phosphorus Magnesium Direct Bilirubin Troponin T C-Reactive Protein Total Protein Albumin Triglycerides Cholesterol LDL Cholesterol Direct HDL Cholesterol Urine WBC (Auto) Urine Creatinine Urine Total Protein Vancomycin Trough Rheumatoid Factor Complement C4 Crossmatch 09/15/16 09/15/16 09/15/16 05:00 05:17 12:45 WBC RBC Hgb Hct MCV MCH MCHC RDW Plt Count Lymph % (Auto) [place] % (Auto) Lymph # [place] # Seg Neutrophils % Seg Neuts % (Manual) Lymphocytes % (Manual) Monocytes % (Manual) Eosinophils % (Manual) Basophils % (Manual) Seg Neutrophils # Seg Neutrophils # Man Lymphocytes # (Manual) Monocytes # (Manual) Eosinophils # (Manual) Fibrinogen dRVVT Confirm Interp Factor V Activity POC ABG pH POC ABG pCO2 POC ABG pO2 Sodium Potassium 5.2 H Chloride Carbon Dioxide 18 L BUN 139 H Creatinine 3.7 H Glucose 227 H POC Glucose 226 H 244 H Lactic Acid Calcium 8.3 L Phosphorus Magnesium Direct Bilirubin Troponin T C-Reactive Protein Total Protein Albumin Triglycerides Cholesterol LDL Cholesterol Direct HDL Cholesterol Urine WBC (Auto) Urine Creatinine Urine Total Protein Vancomycin Trough Rheumatoid Factor Complement C4 Crossmatch 09/15/16 09/15/16 09/15/16 14:32 17:33 23:35 WBC RBC Hgb Hct MCV MCH MCHC RDW Plt Count Lymph % (Auto) [place] % (Auto) Lymph # [place] # Seg Neutrophils % Seg Neuts % (Manual) Lymphocytes % (Manual) Monocytes % (Manual) Eosinophils % (Manual) Basophils % (Manual) Seg Neutrophils # Seg Neutrophils # Man Lymphocytes # (Manual) Monocytes # (Manual) Eosinophils # (Manual) Fibrinogen dRVVT Confirm Interp Factor V Activity POC ABG pH POC ABG pCO2 27.7 L POC ABG pO2 120 H Sodium Potassium Chloride Carbon Dioxide BUN Creatinine Glucose POC Glucose 232 H 167 H Lactic Acid Calcium Phosphorus Magnesium Direct Bilirubin Troponin T C-Reactive Protein Total Protein Albumin Triglycerides Cholesterol LDL Cholesterol Direct HDL Cholesterol Urine WBC (Auto) Urine Creatinine Urine Total Protein Vancomycin Trough Rheumatoid Factor Complement C4 Crossmatch 09/16/16 09/16/16 09/16/16 03:58 10:27 10:27 WBC 19.0 H RBC 2.77 L Hgb 6.5 L Hct 20.9 L MCV 76 L MCH 23 L MCHC RDW 19.3 H Plt Count Lymph % (Auto) 11.0 L [place] % (Auto) Lymph # [place] # 1.1 H Seg Neutrophils % 82.5 H Seg Neuts % (Manual) Lymphocytes % (Manual) Monocytes % (Manual) Eosinophils % (Manual) Basophils % (Manual) Seg Neutrophils # 15.7 H Seg Neutrophils # Man Lymphocytes # (Manual) Monocytes # (Manual) Eosinophils # (Manual) Fibrinogen dRVVT Confirm Interp Factor V Activity POC ABG pH POC ABG pCO2 POC ABG pO2 Sodium Potassium Chloride 109.3 H Carbon Dioxide 18 L BUN 139 H Creatinine 4.1 H Glucose 144 H POC Glucose 146 H Lactic Acid Calcium 8.1 L Phosphorus Magnesium Direct Bilirubin Troponin T C-Reactive Protein Total Protein Albumin Triglycerides Cholesterol LDL Cholesterol Direct HDL Cholesterol Urine WBC (Auto) Urine Creatinine Urine Total Protein Vancomycin Trough Rheumatoid Factor Complement C4 Crossmatch 09/16/16 09/16/16 09/16/16 12:04 12:10 13:55 WBC RBC Hgb Hct MCV MCH MCHC RDW Plt Count Lymph % (Auto) [place] % (Auto) Lymph # [place] # Seg Neutrophils % Seg Neuts % (Manual) Lymphocytes % (Manual) Monocytes % (Manual) Eosinophils % (Manual) Basophils % (Manual) Seg Neutrophils # Seg Neutrophils # Man Lymphocytes # (Manual) Monocytes # (Manual) Eosinophils # (Manual) Fibrinogen dRVVT Confirm Interp Factor V Activity POC ABG pH POC ABG pCO2 32.9 L POC ABG pO2 Sodium Potassium Chloride Carbon Dioxide BUN Creatinine Glucose POC Glucose 185 H Lactic Acid Calcium Phosphorus Magnesium Direct Bilirubin Troponin T C-Reactive Protein Total Protein Albumin Triglycerides Cholesterol LDL Cholesterol Direct HDL Cholesterol Urine WBC (Auto) Urine Creatinine Urine Total Protein Vancomycin Trough Rheumatoid Factor Complement C4 Crossmatch See Detail 09/16/16 09/16/16 09/16/16 17:55 19:19 23:48 WBC RBC Hgb Hct MCV MCH MCHC RDW Plt Count Lymph % (Auto) [place] % (Auto) Lymph # [place] # Seg Neutrophils % Seg Neuts % (Manual) Lymphocytes % (Manual) Monocytes % (Manual) Eosinophils % (Manual) Basophils % (Manual) Seg Neutrophils # Seg Neutrophils # Man Lymphocytes # (Manual) Monocytes # (Manual) Eosinophils # (Manual) Fibrinogen dRVVT Confirm Interp Factor V Activity POC ABG pH POC ABG pCO2 POC ABG pO2 Sodium Potassium Chloride Carbon Dioxide BUN Creatinine Glucose POC Glucose 222 H 107 H Lactic Acid Calcium Phosphorus Magnesium Direct Bilirubin Troponin T C-Reactive Protein Total Protein Albumin Triglycerides Cholesterol LDL Cholesterol Direct HDL Cholesterol Urine WBC (Auto) Urine Creatinine 47.4 H Urine Total Protein 16 H Vancomycin Trough Rheumatoid Factor Complement C4 Crossmatch 09/17/16 09/17/16 09/17/16 03:45 03:45 04:55 WBC 19.6 H RBC 3.41 L Hgb 8.5 L Hct 26.7 L MCV 78 L MCH 25 L MCHC RDW 19.9 H Plt Count Lymph % (Auto) 9.3 L [place] % (Auto) Lymph # [place] # 1.2 H Seg Neutrophils % 83.9 H Seg Neuts % (Manual) Lymphocytes % (Manual) Monocytes % (Manual) Eosinophils % (Manual) Basophils % (Manual) Seg Neutrophils # 16.4 H Seg Neutrophils # Man Lymphocytes # (Manual) Monocytes # (Manual) Eosinophils # (Manual) Fibrinogen dRVVT Confirm Interp Factor V Activity POC ABG pH POC ABG pCO2 POC ABG pO2 Sodium 146 H Potassium 5.1 H Chloride 110.9 H Carbon Dioxide 16 L BUN 146 H Creatinine 4.0 H Glucose 108 H POC Glucose 133 H Lactic Acid Calcium Phosphorus Magnesium 3.00 H Direct Bilirubin Troponin T C-Reactive Protein Total Protein Albumin Triglycerides Cholesterol LDL Cholesterol Direct HDL Cholesterol Urine WBC (Auto) Urine Creatinine Urine Total Protein Vancomycin Trough Rheumatoid Factor Complement C4 Crossmatch 09/17/16 09/17/16 09/17/16 11:15 17:33 23:47 WBC RBC Hgb Hct MCV MCH MCHC RDW Plt Count Lymph % (Auto) [place] % (Auto) Lymph # [place] # Seg Neutrophils % Seg Neuts % (Manual) Lymphocytes % (Manual) Monocytes % (Manual) Eosinophils % (Manual) Basophils % (Manual) Seg Neutrophils # Seg Neutrophils # Man Lymphocytes # (Manual) Monocytes # (Manual) Eosinophils # (Manual) Fibrinogen dRVVT Confirm Interp Factor V Activity POC ABG pH POC ABG pCO2 POC ABG pO2 Sodium Potassium Chloride Carbon Dioxide BUN Creatinine Glucose POC Glucose 176 H 246 H 148 H Lactic Acid Calcium Phosphorus Magnesium Direct Bilirubin Troponin T C-Reactive Protein Total Protein Albumin Triglycerides Cholesterol LDL Cholesterol Direct HDL Cholesterol Urine WBC (Auto) Urine Creatinine Urine Total Protein Vancomycin Trough Rheumatoid Factor Complement C4 Crossmatch 09/18/16 09/18/16 09/18/16 05:33 08:31 08:31 WBC 18.0 H RBC 3.17 L Hgb 9.0 L Hct 25.7 L MCV MCH MCHC 35 H RDW 20.4 H Plt Count Lymph % (Auto) [place] % (Auto) Lymph # [place] # Seg Neutrophils % Seg Neuts % (Manual) Lymphocytes % (Manual) Monocytes % (Manual) Eosinophils % (Manual) Basophils % (Manual) Seg Neutrophils # Seg Neutrophils # Man Lymphocytes # (Manual) Monocytes # (Manual) Eosinophils # (Manual) Fibrinogen dRVVT Confirm Interp Factor V Activity POC ABG pH POC ABG pCO2 POC ABG pO2 Sodium Potassium Chloride Carbon Dioxide 15 L BUN 124 H Creatinine 3.8 H Glucose POC Glucose 120 H Lactic Acid Calcium 8.1 L Phosphorus Magnesium Direct Bilirubin Troponin T C-Reactive Protein Total Protein Albumin Triglycerides Cholesterol LDL Cholesterol Direct HDL Cholesterol Urine WBC (Auto) Urine Creatinine Urine Total Protein Vancomycin Trough Rheumatoid Factor Complement C4 Crossmatch 09/18/16 09/18/16 09/18/16 12:03 15:34 17:50 WBC RBC Hgb Hct MCV MCH MCHC RDW Plt Count Lymph % (Auto) [place] % (Auto) Lymph # [place] # Seg Neutrophils % Seg Neuts % (Manual) Lymphocytes % (Manual) Monocytes % (Manual) Eosinophils % (Manual) Basophils % (Manual) Seg Neutrophils # Seg Neutrophils # Man Lymphocytes # (Manual) Monocytes # (Manual) Eosinophils # (Manual) Fibrinogen dRVVT Confirm Interp Factor V Activity POC ABG pH POC ABG pCO2 25.7 L POC ABG pO2 66 L Sodium Potassium Chloride Carbon Dioxide BUN Creatinine Glucose POC Glucose 156 H 220 H Lactic Acid Calcium Phosphorus Magnesium Direct Bilirubin Troponin T C-Reactive Protein Total Protein Albumin Triglycerides Cholesterol LDL Cholesterol Direct HDL Cholesterol Urine WBC (Auto) Urine Creatinine Urine Total Protein Vancomycin Trough Rheumatoid Factor Complement C4 Crossmatch 09/19/16 09/19/16 09/19/16 06:21 09:50 09:50 WBC 17.1 H RBC 3.49 L Hgb 9.0 L Hct 28.1 L MCV MCH 26 L MCHC RDW 20.8 H Plt Count Lymph % (Auto) 11.5 L [place] % (Auto) 7.5 H Lymph # [place] # 1.3 H Seg Neutrophils % 79.8 H Seg Neuts % (Manual) Lymphocytes % (Manual) Monocytes % (Manual) Eosinophils % (Manual) Basophils % (Manual) Seg Neutrophils # 13.7 H Seg Neutrophils # Man Lymphocytes # (Manual) Monocytes # (Manual) Eosinophils # (Manual) Fibrinogen dRVVT Confirm Interp Factor V Activity POC ABG pH POC ABG pCO2 POC ABG pO2 Sodium Potassium Chloride 108.6 H Carbon Dioxide 15 L BUN 125 H Creatinine 4.1 H Glucose 124 H POC Glucose 119 H Lactic Acid Calcium Phosphorus Magnesium Direct Bilirubin Troponin T C-Reactive Protein Total Protein Albumin Triglycerides Cholesterol LDL Cholesterol Direct HDL Cholesterol Urine WBC (Auto) Urine Creatinine Urine Total Protein Vancomycin Trough Rheumatoid Factor Complement C4 Crossmatch 09/19/16 09/19/16 09/19/16 11:25 17:53 23:36 WBC RBC Hgb Hct MCV MCH MCHC RDW Plt Count Lymph % (Auto) [place] % (Auto) Lymph # [place] # Seg Neutrophils % Seg Neuts % (Manual) Lymphocytes % (Manual) Monocytes % (Manual) Eosinophils % (Manual) Basophils % (Manual) Seg Neutrophils # Seg Neutrophils # Man Lymphocytes # (Manual) Monocytes # (Manual) Eosinophils # (Manual) Fibrinogen dRVVT Confirm Interp Factor V Activity POC ABG pH POC ABG pCO2 POC ABG pO2 Sodium Potassium Chloride Carbon Dioxide BUN Creatinine Glucose POC Glucose 160 H 245 H 121 H Lactic Acid Calcium Phosphorus Magnesium Direct Bilirubin Troponin T C-Reactive Protein Total Protein Albumin Triglycerides Cholesterol LDL Cholesterol Direct HDL Cholesterol Urine WBC (Auto) Urine Creatinine Urine Total Protein Vancomycin Trough Rheumatoid Factor Complement C4 Crossmatch 09/20/16 09/20/16 09/20/16 04:10 04:10 04:10 WBC 17.0 H RBC 3.21 L Hgb 8.2 L Hct 25.5 L MCV MCH 26 L MCHC RDW 20.9 H Plt Count Lymph % (Auto) [place] % (Auto) Lymph # [place] # Seg Neutrophils % Seg Neuts % (Manual) Lymphocytes % (Manual) Monocytes % (Manual) Eosinophils % (Manual) Basophils % (Manual) Seg Neutrophils # Seg Neutrophils # Man Lymphocytes # (Manual) Monocytes # (Manual) Eosinophils # (Manual) Fibrinogen dRVVT Confirm Interp Factor V Activity POC ABG pH POC ABG pCO2 POC ABG pO2 Sodium Potassium Chloride 111.0 H Carbon Dioxide 16 L BUN 129 H Creatinine 3.7 H Glucose 115 H POC Glucose Lactic Acid Calcium 8.2 L Phosphorus Magnesium Direct Bilirubin Troponin T C-Reactive Protein Total Protein Albumin Triglycerides 243 H Cholesterol LDL Cholesterol Direct HDL Cholesterol Urine WBC (Auto) Urine Creatinine Urine Total Protein Vancomycin Trough Rheumatoid Factor Complement C4 Crossmatch 09/20/16 09/20/16 09/20/16 05:40 11:52 16:50 WBC RBC Hgb Hct MCV MCH MCHC RDW Plt Count Lymph % (Auto) [place] % (Auto) Lymph # [place] # Seg Neutrophils % Seg Neuts % (Manual) Lymphocytes % (Manual) Monocytes % (Manual) Eosinophils % (Manual) Basophils % (Manual) Seg Neutrophils # Seg Neutrophils # Man Lymphocytes # (Manual) Monocytes # (Manual) Eosinophils # (Manual) Fibrinogen dRVVT Confirm Interp Factor V Activity POC ABG pH POC ABG pCO2 POC ABG pO2 Sodium Potassium Chloride Carbon Dioxide BUN Creatinine Glucose POC Glucose 131 H 183 H 236 H Lactic Acid Calcium Phosphorus Magnesium Direct Bilirubin Troponin T C-Reactive Protein Total Protein Albumin Triglycerides Cholesterol LDL Cholesterol Direct HDL Cholesterol Urine WBC (Auto) Urine Creatinine Urine Total Protein Vancomycin Trough Rheumatoid Factor Complement C4 Crossmatch 09/20/16 09/21/16 09/21/16 23:51 03:30 04:44 WBC RBC Hgb Hct MCV MCH MCHC RDW Plt Count Lymph % (Auto) [place] % (Auto) Lymph # [place] # Seg Neutrophils % Seg Neuts % (Manual) Lymphocytes % (Manual) Monocytes % (Manual) Eosinophils % (Manual) Basophils % (Manual) Seg Neutrophils # Seg Neutrophils # Man Lymphocytes # (Manual) Monocytes # (Manual) Eosinophils # (Manual) Fibrinogen dRVVT Confirm Interp Factor V Activity POC ABG pH POC ABG pCO2 POC ABG pO2 Sodium Potassium Chloride Carbon Dioxide BUN Creatinine Glucose POC Glucose 114 H 141 H Lactic Acid Calcium Phosphorus Magnesium 2.70 H Direct Bilirubin Troponin T C-Reactive Protein Total Protein Albumin Triglycerides Cholesterol LDL Cholesterol Direct HDL Cholesterol Urine WBC (Auto) Urine Creatinine Urine Total Protein Vancomycin Trough Rheumatoid Factor Complement C4 Crossmatch 09/21/16 09/21/16 09/21/16 07:45 07:45 10:01 WBC 13.8 H RBC 2.94 L Hgb 7.5 L Hct 23.5 L MCV MCH 26 L MCHC RDW 21.2 H Plt Count Lymph % (Auto) 6.9 L [place] % (Auto) 9.4 H Lymph # 0.9 L [place] # 1.3 H Seg Neutrophils % 83.2 H Seg Neuts % (Manual) Lymphocytes % (Manual) Monocytes % (Manual) Eosinophils % (Manual) Basophils % (Manual) Seg Neutrophils # 11.5 H Seg Neutrophils # Man Lymphocytes # (Manual) Monocytes # (Manual) Eosinophils # (Manual) Fibrinogen dRVVT Confirm Interp Factor V Activity POC ABG pH 7.308 L POC ABG pCO2 31.9 L POC ABG pO2 148 H Sodium 147 H Potassium Chloride 114.2 H Carbon Dioxide 15 L BUN 120 H Creatinine 3.9 H Glucose 156 H POC Glucose Lactic Acid Calcium 8.2 L Phosphorus Magnesium Direct Bilirubin Troponin T C-Reactive Protein Total Protein Albumin Triglycerides Cholesterol LDL Cholesterol Direct HDL Cholesterol Urine WBC (Auto) Urine Creatinine Urine Total Protein Vancomycin Trough Rheumatoid Factor Complement C4 Crossmatch 09/21/16 09/21/16 09/21/16 12:00 12:03 13:00 WBC RBC Hgb Hct MCV MCH MCHC RDW Plt Count Lymph % (Auto) [place] % (Auto) Lymph # [place] # Seg Neutrophils % Seg Neuts % (Manual) Lymphocytes % (Manual) Monocytes % (Manual) Eosinophils % (Manual) Basophils % (Manual) Seg Neutrophils # Seg Neutrophils # Man Lymphocytes # (Manual) Monocytes # (Manual) Eosinophils # (Manual) Fibrinogen dRVVT Confirm Interp Factor V Activity POC ABG pH POC ABG pCO2 POC ABG pO2 Sodium Potassium Chloride Carbon Dioxide BUN Creatinine Glucose POC Glucose 163 H Lactic Acid Calcium Phosphorus Magnesium Direct Bilirubin Troponin T C-Reactive Protein Total Protein Albumin Triglycerides Cholesterol LDL Cholesterol Direct HDL Cholesterol Urine WBC (Auto) Urine Creatinine 54.8 H Urine Total Protein Vancomycin Trough 2.3 L Rheumatoid Factor Complement C4 Crossmatch 09/21/16 09/21/16 09/22/16 16:51 23:17 06:27 WBC RBC Hgb Hct MCV MCH MCHC RDW Plt Count Lymph % (Auto) [place] % (Auto) Lymph # [place] # Seg Neutrophils % Seg Neuts % (Manual) Lymphocytes % (Manual) Monocytes % (Manual) Eosinophils % (Manual) Basophils % (Manual) Seg Neutrophils # Seg Neutrophils # Man Lymphocytes # (Manual) Monocytes # (Manual) Eosinophils # (Manual) Fibrinogen dRVVT Confirm Interp Factor V Activity POC ABG pH POC ABG pCO2 POC ABG pO2 Sodium Potassium Chloride Carbon Dioxide BUN Creatinine Glucose POC Glucose 206 H 114 H 115 H Lactic Acid Calcium Phosphorus Magnesium Direct Bilirubin Troponin T C-Reactive Protein Total Protein Albumin Triglycerides Cholesterol LDL Cholesterol Direct HDL Cholesterol Urine WBC (Auto) Urine Creatinine Urine Total Protein Vancomycin Trough Rheumatoid Factor Complement C4 Crossmatch 09/22/16 09/22/16 09/22/16 07:50 07:50 12:00 WBC 17.8 H RBC 3.04 L Hgb 8.0 L Hct 24.7 L MCV MCH 26 L MCHC RDW 21.6 H Plt Count Lymph % (Auto) [place] % (Auto) Lymph # [place] # Seg Neutrophils % Seg Neuts % (Manual) Lymphocytes % (Manual) Monocytes % (Manual) Eosinophils % (Manual) Basophils % (Manual) Seg Neutrophils # Seg Neutrophils # Man Lymphocytes # (Manual) Monocytes # (Manual) Eosinophils # (Manual) Fibrinogen dRVVT Confirm Interp Factor V Activity POC ABG pH POC ABG pCO2 POC ABG pO2 Sodium 150 H Potassium Chloride 118.2 H Carbon Dioxide 14 L BUN 111 H Creatinine 3.7 H Glucose 157 H POC Glucose 183 H Lactic Acid Calcium Phosphorus Magnesium Direct Bilirubin Troponin T C-Reactive Protein Total Protein Albumin Triglycerides Cholesterol LDL Cholesterol Direct HDL Cholesterol Urine WBC (Auto) Urine Creatinine Urine Total Protein Vancomycin Trough Rheumatoid Factor Complement C4 Crossmatch 09/22/16 09/22/16 09/23/16 17:29 23:10 05:00 WBC 19.2 H RBC 3.13 L Hgb 8.0 L Hct 25.2 L MCV MCH 26 L MCHC RDW 22.1 H Plt Count Lymph % (Auto) [place] % (Auto) Lymph # [place] # Seg Neutrophils % Seg Neuts % (Manual) 92.0 H Lymphocytes % (Manual) 3.0 L Monocytes % (Manual) Eosinophils % (Manual) Basophils % (Manual) Seg Neutrophils # Seg Neutrophils # Man 17.7 H Lymphocytes # (Manual) 0.6 L Monocytes # (Manual) Eosinophils # (Manual) Fibrinogen dRVVT Confirm Interp Factor V Activity POC ABG pH POC ABG pCO2 POC ABG pO2 Sodium Potassium Chloride Carbon Dioxide BUN Creatinine Glucose POC Glucose 197 H 169 H Lactic Acid Calcium Phosphorus Magnesium Direct Bilirubin Troponin T C-Reactive Protein Total Protein Albumin Triglycerides Cholesterol LDL Cholesterol Direct HDL Cholesterol Urine WBC (Auto) Urine Creatinine Urine Total Protein Vancomycin Trough Rheumatoid Factor Complement C4 Crossmatch 09/23/16 09/23/16 09/23/16 05:00 05:00 05:10 WBC RBC Hgb Hct MCV MCH MCHC RDW Plt Count Lymph % (Auto) [place] % (Auto) Lymph # [place] # Seg Neutrophils % Seg Neuts % (Manual) Lymphocytes % (Manual) Monocytes % (Manual) Eosinophils % (Manual) Basophils % (Manual) Seg Neutrophils # Seg Neutrophils # Man Lymphocytes # (Manual) Monocytes # (Manual) Eosinophils # (Manual) Fibrinogen dRVVT Confirm Interp Factor V Activity POC ABG pH POC ABG pCO2 POC ABG pO2 Sodium 147 H Potassium 3.2 L Chloride 115.7 H Carbon Dioxide 13 L BUN 111 H Creatinine 3.8 H Glucose 194 H POC Glucose 188 H Lactic Acid Calcium 7.3 L D Phosphorus Magnesium Direct Bilirubin Troponin T C-Reactive Protein 3.20 H Total Protein Albumin Triglycerides Cholesterol LDL Cholesterol Direct HDL Cholesterol Urine WBC (Auto) Urine Creatinine Urine Total Protein Vancomycin Trough Rheumatoid Factor Complement C4 Crossmatch 09/23/16 09/23/16 09/23/16 11:37 12:29 18:01 WBC RBC Hgb Hct MCV MCH MCHC RDW Plt Count Lymph % (Auto) [place] % (Auto) Lymph # [place] # Seg Neutrophils % Seg Neuts % (Manual) Lymphocytes % (Manual) Monocytes % (Manual) Eosinophils % (Manual) Basophils % (Manual) Seg Neutrophils # Seg Neutrophils # Man Lymphocytes # (Manual) Monocytes # (Manual) Eosinophils # (Manual) Fibrinogen dRVVT Confirm Interp Factor V Activity POC ABG pH POC ABG pCO2 18.9 L POC ABG pO2 143 H Sodium Potassium Chloride Carbon Dioxide BUN Creatinine Glucose POC Glucose 153 H 108 H Lactic Acid Calcium Phosphorus Magnesium Direct Bilirubin Troponin T C-Reactive Protein Total Protein Albumin Triglycerides Cholesterol LDL Cholesterol Direct HDL Cholesterol Urine WBC (Auto) Urine Creatinine Urine Total Protein Vancomycin Trough Rheumatoid Factor Complement C4 Crossmatch 09/23/16 09/23/16 09/24/16 21:19 23:43 05:16 WBC RBC Hgb Hct MCV MCH MCHC RDW Plt Count Lymph % (Auto) [place] % (Auto) Lymph # [place] # Seg Neutrophils % Seg Neuts % (Manual) Lymphocytes % (Manual) Monocytes % (Manual) Eosinophils % (Manual) Basophils % (Manual) Seg Neutrophils # Seg Neutrophils # Man Lymphocytes # (Manual) Monocytes # (Manual) Eosinophils # (Manual) Fibrinogen dRVVT Confirm Interp Factor V Activity POC ABG pH POC ABG pCO2 17.3 L POC ABG pO2 112 H Sodium Potassium Chloride Carbon Dioxide BUN Creatinine Glucose POC Glucose 143 H 164 H Lactic Acid Calcium Phosphorus Magnesium Direct Bilirubin Troponin T C-Reactive Protein Total Protein Albumin Triglycerides Cholesterol LDL Cholesterol Direct HDL Cholesterol Urine WBC (Auto) Urine Creatinine Urine Total Protein Vancomycin Trough Rheumatoid Factor Complement C4 Crossmatch 09/24/16 09/24/16 09/24/16 05:21 11:58 17:06 WBC RBC Hgb Hct MCV MCH MCHC RDW Plt Count Lymph % (Auto) [place] % (Auto) Lymph # [place] # Seg Neutrophils % Seg Neuts % (Manual) Lymphocytes % (Manual) Monocytes % (Manual) Eosinophils % (Manual) Basophils % (Manual) Seg Neutrophils # Seg Neutrophils # Man Lymphocytes # (Manual) Monocytes # (Manual) Eosinophils # (Manual) Fibrinogen dRVVT Confirm Interp Factor V Activity POC ABG pH POC ABG pCO2 POC ABG pO2 Sodium Potassium Chloride Carbon Dioxide 10 L BUN 103 H Creatinine 4.3 H Glucose 163 H POC Glucose 173 H 167 H Lactic Acid Calcium 6.5 L Phosphorus Magnesium Direct Bilirubin Troponin T C-Reactive Protein Total Protein Albumin Triglycerides Cholesterol LDL Cholesterol Direct HDL Cholesterol Urine WBC (Auto) Urine Creatinine Urine Total Protein Vancomycin Trough Rheumatoid Factor Complement C4 Crossmatch 09/24/16 09/24/16 09/24/16 20:15 21:02 23:48 WBC RBC Hgb Hct MCV MCH MCHC RDW Plt Count Lymph % (Auto) [place] % (Auto) Lymph # [place] # Seg Neutrophils % Seg Neuts % (Manual) Lymphocytes % (Manual) Monocytes % (Manual) Eosinophils % (Manual) Basophils % (Manual) Seg Neutrophils # Seg Neutrophils # Man Lymphocytes # (Manual) Monocytes # (Manual) Eosinophils # (Manual) Fibrinogen dRVVT Confirm Interp Factor V Activity POC ABG pH 7.288 L POC ABG pCO2 30.2 L 21.5 L POC ABG pO2 32 L 39 L Sodium Potassium Chloride Carbon Dioxide BUN Creatinine Glucose POC Glucose 109 H Lactic Acid Calcium Phosphorus Magnesium Direct Bilirubin Troponin T C-Reactive Protein Total Protein Albumin Triglycerides Cholesterol LDL Cholesterol Direct HDL Cholesterol Urine WBC (Auto) Urine Creatinine Urine Total Protein Vancomycin Trough Rheumatoid Factor Complement C4 Crossmatch 09/25/16 09/25/16 09/25/16 04:20 04:20 04:20 WBC RBC 2.58 L Hgb 7.0 L Hct 21.0 L MCV MCH 27 L MCHC RDW 23.8 H Plt Count Lymph % (Auto) [place] % (Auto) Lymph # [place] # Seg Neutrophils % Seg Neuts % (Manual) Lymphocytes % (Manual) 12.0 L Monocytes % (Manual) Eosinophils % (Manual) 7.0 H Basophils % (Manual) 2.0 H Seg Neutrophils # Seg Neutrophils # Man Lymphocytes # (Manual) 0.9 L Monocytes # (Manual) Eosinophils # (Manual) 0.5 H Fibrinogen dRVVT Confirm Interp Factor V Activity POC ABG pH POC ABG pCO2 POC ABG pO2 Sodium Potassium Chloride Carbon Dioxide 15 L BUN 72 H Creatinine 3.8 H Glucose POC Glucose Lactic Acid Calcium 6.0 L Phosphorus 4.60 H Magnesium 1.60 L Direct Bilirubin Troponin T C-Reactive Protein Total Protein Albumin Triglycerides Cholesterol LDL Cholesterol Direct HDL Cholesterol Urine WBC (Auto) Urine Creatinine Urine Total Protein Vancomycin Trough Rheumatoid Factor Complement C4 Crossmatch 09/25/16 09/25/16 09/25/16 04:57 08:02 10:30 WBC RBC Hgb Hct MCV MCH MCHC RDW Plt Count Lymph % (Auto) [place] % (Auto) Lymph # [place] # Seg Neutrophils % Seg Neuts % (Manual) Lymphocytes % (Manual) Monocytes % (Manual) Eosinophils % (Manual) Basophils % (Manual) Seg Neutrophils # Seg Neutrophils # Man Lymphocytes # (Manual) Monocytes # (Manual) Eosinophils # (Manual) Fibrinogen dRVVT Confirm Interp Factor V Activity POC ABG pH POC ABG pCO2 24.7 L POC ABG pO2 152 H Sodium Potassium Chloride Carbon Dioxide BUN Creatinine Glucose POC Glucose 113 H Lactic Acid Calcium Phosphorus Magnesium Direct Bilirubin Troponin T C-Reactive Protein Total Protein Albumin Triglycerides Cholesterol LDL Cholesterol Direct HDL Cholesterol Urine WBC (Auto) Urine Creatinine Urine Total Protein Vancomycin Trough Rheumatoid Factor Complement C4 Crossmatch See Detail 09/25/16 09/25/16 09/25/16 12:05 17:44 23:47 WBC RBC Hgb Hct MCV MCH MCHC RDW Plt Count Lymph % (Auto) [place] % (Auto) Lymph # [place] # Seg Neutrophils % Seg Neuts % (Manual) Lymphocytes % (Manual) Monocytes % (Manual) Eosinophils % (Manual) Basophils % (Manual) Seg Neutrophils # Seg Neutrophils # Man Lymphocytes # (Manual) Monocytes # (Manual) Eosinophils # (Manual) Fibrinogen dRVVT Confirm Interp Factor V Activity POC ABG pH POC ABG pCO2 POC ABG pO2 Sodium Potassium Chloride Carbon Dioxide BUN Creatinine Glucose POC Glucose 117 H 119 H 150 H Lactic Acid Calcium Phosphorus Magnesium Direct Bilirubin Troponin T C-Reactive Protein Total Protein Albumin Triglycerides Cholesterol LDL Cholesterol Direct HDL Cholesterol Urine WBC (Auto) Urine Creatinine Urine Total Protein Vancomycin Trough Rheumatoid Factor Complement C4 Crossmatch 09/26/16 09/26/16 09/26/16 04:25 04:25 04:25 WBC RBC 2.65 L Hgb 7.4 L Hct 21.6 L MCV MCH MCHC RDW 22.5 H Plt Count Lymph % (Auto) [place] % (Auto) Lymph # [place] # Seg Neutrophils % Seg Neuts % (Manual) Lymphocytes % (Manual) 6.0 L Monocytes % (Manual) Eosinophils % (Manual) 11.0 H Basophils % (Manual) Seg Neutrophils # Seg Neutrophils # Man Lymphocytes # (Manual) 0.4 L Monocytes # (Manual) Eosinophils # (Manual) 0.6 H Fibrinogen dRVVT Confirm Interp Factor V Activity POC ABG pH POC ABG pCO2 POC ABG pO2 Sodium Potassium Chloride 97.0 L Carbon Dioxide 19 L BUN 43 H Creatinine 2.6 H Glucose 130 H POC Glucose Lactic Acid 4.40 H* Calcium 6.7 L Phosphorus Magnesium Direct Bilirubin Troponin T C-Reactive Protein Total Protein Albumin Triglycerides Cholesterol LDL Cholesterol Direct HDL Cholesterol Urine WBC (Auto) Urine Creatinine Urine Total Protein Vancomycin Trough Rheumatoid Factor Complement C4 Crossmatch 09/26/16 09/26/16 09/26/16 05:20 11:44 12:12 WBC RBC Hgb Hct MCV MCH MCHC RDW Plt Count Lymph % (Auto) [place] % (Auto) Lymph # [place] # Seg Neutrophils % Seg Neuts % (Manual) Lymphocytes % (Manual) Monocytes % (Manual) Eosinophils % (Manual) Basophils % (Manual) Seg Neutrophils # Seg Neutrophils # Man Lymphocytes # (Manual) Monocytes # (Manual) Eosinophils # (Manual) Fibrinogen dRVVT Confirm Interp Factor V Activity POC ABG pH POC ABG pCO2 27.0 L POC ABG pO2 69 L Sodium Potassium Chloride Carbon Dioxide BUN Creatinine Glucose POC Glucose 121 H 128 H Lactic Acid Calcium Phosphorus Magnesium Direct Bilirubin Troponin T C-Reactive Protein Total Protein Albumin Triglycerides Cholesterol LDL Cholesterol Direct HDL Cholesterol Urine WBC (Auto) Urine Creatinine Urine Total Protein Vancomycin Trough Rheumatoid Factor Complement C4 Crossmatch 09/26/16 09/26/16 09/27/16 18:31 23:40 08:20 WBC RBC Hgb Hct MCV MCH MCHC RDW Plt Count Lymph % (Auto) [place] % (Auto) Lymph # [place] # Seg Neutrophils % Seg Neuts % (Manual) Lymphocytes % (Manual) Monocytes % (Manual) Eosinophils % (Manual) Basophils % (Manual) Seg Neutrophils # Seg Neutrophils # Man Lymphocytes # (Manual) Monocytes # (Manual) Eosinophils # (Manual) Fibrinogen dRVVT Confirm Interp Factor V Activity POC ABG pH POC ABG pCO2 POC ABG pO2 Sodium Potassium Chloride Carbon Dioxide BUN Creatinine Glucose POC Glucose 120 H 133 H Lactic Acid 4.10 H* Calcium Phosphorus Magnesium Direct Bilirubin Troponin T C-Reactive Protein Total Protein Albumin Triglycerides Cholesterol LDL Cholesterol Direct HDL Cholesterol Urine WBC (Auto) Urine Creatinine Urine Total Protein Vancomycin Trough Rheumatoid Factor Complement C4 Crossmatch 09/27/16 09/27/16 09/27/16 11:23 15:00 18:15 WBC RBC Hgb Hct MCV MCH MCHC RDW Plt Count Lymph % (Auto) [place] % (Auto) Lymph # [place] # Seg Neutrophils % Seg Neuts % (Manual) Lymphocytes % (Manual) Monocytes % (Manual) Eosinophils % (Manual) Basophils % (Manual) Seg Neutrophils # Seg Neutrophils # Man Lymphocytes # (Manual) Monocytes # (Manual) Eosinophils # (Manual) Fibrinogen dRVVT Confirm Interp Factor V Activity POC ABG pH 7.459 H POC ABG pCO2 27.1 L POC ABG pO2 140 H Sodium Potassium Chloride Carbon Dioxide BUN Creatinine Glucose POC Glucose 114 H 127 H Lactic Acid Calcium Phosphorus Magnesium Direct Bilirubin Troponin T C-Reactive Protein Total Protein Albumin Triglycerides Cholesterol LDL Cholesterol Direct HDL Cholesterol Urine WBC (Auto) Urine Creatinine Urine Total Protein Vancomycin Trough Rheumatoid Factor Complement C4 Crossmatch 09/27/16 09/27/16 09/28/16 Unknown Unknown 03:45 WBC RBC 2.49 L Hgb 6.8 L Hct 20.7 L MCV MCH 27 L MCHC RDW 22.1 H Plt Count Lymph % (Auto) [place] % (Auto) Lymph # [place] # Seg Neutrophils % Seg Neuts % (Manual) 32.0 L Lymphocytes % (Manual) 12.0 L Monocytes % (Manual) 11.0 H Eosinophils % (Manual) 10.0 H Basophils % (Manual) Seg Neutrophils # Seg Neutrophils # Man Lymphocytes # (Manual) 1.0 L Monocytes # (Manual) 0.9 H Eosinophils # (Manual) 0.8 H Fibrinogen dRVVT Confirm Interp Factor V Activity POC ABG pH POC ABG pCO2 POC ABG pO2 Sodium 135 L 135 L Potassium 3.5 L Chloride 93.6 L 94.4 L Carbon Dioxide 17 L 21 L BUN 45 H 28 H Creatinine 3.3 H 2.5 H Glucose 106 H POC Glucose Lactic Acid Calcium 7.3 L 7.1 L Phosphorus Magnesium Direct Bilirubin Troponin T C-Reactive Protein Total Protein Albumin Triglycerides Cholesterol LDL Cholesterol Direct HDL Cholesterol Urine WBC (Auto) Urine Creatinine Urine Total Protein Vancomycin Trough Rheumatoid Factor Complement C4 Crossmatch 09/28/16 09/28/16 09/28/16 03:45 07:25 11:58 WBC 13.3 H RBC 3.01 L Hgb 8.4 L Hct 25.0 L MCV MCH MCHC RDW 20.5 H Plt Count 128 L Lymph % (Auto) [place] % (Auto) Lymph # [place] # Seg Neutrophils % Seg Neuts % (Manual) Lymphocytes % (Manual) 7.0 L Monocytes % (Manual) Eosinophils % (Manual) 6.0 H Basophils % (Manual) Seg Neutrophils # Seg Neutrophils # Man Lymphocytes # (Manual) 0.9 L Monocytes # (Manual) Eosinophils # (Manual) 0.8 H Fibrinogen dRVVT Confirm Interp Factor V Activity POC ABG pH POC ABG pCO2 POC ABG pO2 Sodium Potassium Chloride Carbon Dioxide BUN Creatinine Glucose POC Glucose 121 H Lactic Acid 4.50 H* Calcium Phosphorus Magnesium Direct Bilirubin Troponin T C-Reactive Protein Total Protein Albumin Triglycerides Cholesterol LDL Cholesterol Direct HDL Cholesterol Urine WBC (Auto) Urine Creatinine Urine Total Protein Vancomycin Trough Rheumatoid Factor Complement C4 Crossmatch 09/29/16 09/29/16 09/29/16 06:45 06:45 06:45 WBC 14.9 H RBC 2.74 L Hgb 7.6 L Hct 23.2 L MCV MCH MCHC RDW 20.5 H Plt Count 81 L Lymph % (Auto) [place] % (Auto) Lymph # [place] # Seg Neutrophils % Seg Neuts % (Manual) 81.0 H Lymphocytes % (Manual) 4.0 L Monocytes % (Manual) Eosinophils % (Manual) Basophils % (Manual) Seg Neutrophils # Seg Neutrophils # Man 12.1 H Lymphocytes # (Manual) 0.6 L Monocytes # (Manual) Eosinophils # (Manual) Fibrinogen dRVVT Confirm Interp Factor V Activity POC ABG pH POC ABG pCO2 POC ABG pO2 Sodium 133 L Potassium 3.4 L Chloride 92.5 L Carbon Dioxide 21 L BUN 33 H Creatinine 3.0 H Glucose POC Glucose Lactic Acid Calcium 6.6 L Phosphorus Magnesium 1.40 L Direct Bilirubin 0.9 H Troponin T C-Reactive Protein Total Protein 4.3 L Albumin 1.3 L Triglycerides Cholesterol LDL Cholesterol Direct HDL Cholesterol Urine WBC (Auto) Urine Creatinine Urine Total Protein Vancomycin Trough Rheumatoid Factor Complement C4 Crossmatch 09/29/16 09/29/16 09/30/16 17:52 20:12 00:07 WBC RBC Hgb Hct MCV MCH MCHC RDW Plt Count Lymph % (Auto) [place] % (Auto) Lymph # [place] # Seg Neutrophils % Seg Neuts % (Manual) Lymphocytes % (Manual) Monocytes % (Manual) Eosinophils % (Manual) Basophils % (Manual) Seg Neutrophils # Seg Neutrophils # Man Lymphocytes # (Manual) Monocytes # (Manual) Eosinophils # (Manual) Fibrinogen dRVVT Confirm Interp Factor V Activity POC ABG pH POC ABG pCO2 POC ABG pO2 Sodium Potassium Chloride Carbon Dioxide BUN Creatinine Glucose POC Glucose 50 L 51 L Lactic Acid Calcium Phosphorus Magnesium Direct Bilirubin Troponin T 0.204 H* C-Reactive Protein Total Protein Albumin Triglycerides Cholesterol 31 L LDL Cholesterol Direct 4 L HDL Cholesterol 3 L Urine WBC (Auto) Urine Creatinine Urine Total Protein Vancomycin Trough Rheumatoid Factor Complement C4 Crossmatch 09/30/16 09/30/16 09/30/16 01:30 05:15 06:10 WBC RBC Hgb Hct MCV MCH MCHC RDW Plt Count Lymph % (Auto) [place] % (Auto) Lymph # [place] # Seg Neutrophils % Seg Neuts % (Manual) Lymphocytes % (Manual) Monocytes % (Manual) Eosinophils % (Manual) Basophils % (Manual) Seg Neutrophils # Seg Neutrophils # Man Lymphocytes # (Manual) Monocytes # (Manual) Eosinophils # (Manual) Fibrinogen dRVVT Confirm Interp Factor V Activity POC ABG pH POC ABG pCO2 POC ABG pO2 Sodium 133 L Potassium 3.2 L Chloride 93.2 L Carbon Dioxide 19 L BUN 36 H Creatinine 3.2 H Glucose 104 H POC Glucose 167 H 146 H Lactic Acid Calcium 6.4 L Phosphorus Magnesium 1.60 L Direct Bilirubin Troponin T C-Reactive Protein Total Protein Albumin Triglycerides Cholesterol LDL Cholesterol Direct HDL Cholesterol Urine WBC (Auto) Urine Creatinine Urine Total Protein Vancomycin Trough Rheumatoid Factor Complement C4 Crossmatch 09/30/16 11:26 WBC RBC Hgb Hct MCV MCH MCHC RDW Plt Count Lymph % (Auto) [place] % (Auto) Lymph # [place] # Seg Neutrophils % Seg Neuts % (Manual) Lymphocytes % (Manual) Monocytes % (Manual) Eosinophils % (Manual) Basophils % (Manual) Seg Neutrophils # Seg Neutrophils # Man Lymphocytes # (Manual) Monocytes # (Manual) Eosinophils # (Manual) Fibrinogen dRVVT Confirm Interp Factor V Activity POC ABG pH POC ABG pCO2 POC ABG pO2 Sodium Potassium Chloride Carbon Dioxide BUN Creatinine Glucose POC Glucose 140 H Lactic Acid Calcium Phosphorus Magnesium Direct Bilirubin Troponin T C-Reactive Protein Total Protein Albumin Triglycerides Cholesterol LDL Cholesterol Direct HDL Cholesterol Urine WBC (Auto) Urine Creatinine Urine Total Protein Vancomycin Trough Rheumatoid Factor Complement C4 Crossmatch Chest x-ray: image reviewed Allied health notes reviewed: RT
--- NOTE | 2016-09-30 14:00 | Progress Note ---
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 * Acute hypoxic respiratory failure * Left renal artery stenosis * Metabolic acidosis - improved * Anemia Plan: * No acute indication for hemodialysis today - electrolytes and oxygenation are stable * Vascath removed in light of fungemia * Pressors prn MAP>65 * Rate control per cardiology * Transfusion of pRBC per primary team * Abx/antifungal per ID * Vent management per critical care * Dose medications for renal function * Avoid potential nephrotoxins Subjective Date of service: 09/30/16 Principal diagnosis: Acute resp failure on MVS; S/P Acute CVA; Acute Encephalopathy; JUANITA Interval history: No acute events overnight. FiO2 30 Objective - Vital Signs Vital signs: Vital Signs - 12hr 09/30/16 09/30/16 09/30/16 02:00 02:16 02:30 Temperature Pulse Rate 98 H 110 H 103 H Pulse Rate [ From Monitor] Respiratory 23 31 H 19 Rate Respiratory Rate [ Generalized] Blood Pressure 101/46 101/46 101/46 O2 Sat by Pulse 100 100 100 Oximetry O2 Sat by Pulse Oximetry [ Assessment] 09/30/16 09/30/16 09/30/16 02:46 03:00 03:16 Temperature Pulse Rate 81 92 H 102 H Pulse Rate [ From Monitor] Respiratory 26 H 22 21 Rate Respiratory Rate [ Generalized] Blood Pressure 101/46 91/52 91/52 O2 Sat by Pulse 100 100 100 Oximetry O2 Sat by Pulse Oximetry [ Assessment] 09/30/16 09/30/16 09/30/16 03:30 03:46 04:00 Temperature 98.6 F Pulse Rate 90 94 H 101 H Pulse Rate [ From Monitor] Respiratory 25 H 22 21 Rate Respiratory Rate [ Generalized] Blood Pressure 91/52 91/52 91/52 O2 Sat by Pulse 100 100 100 Oximetry O2 Sat by Pulse Oximetry [ Assessment] 09/30/16 09/30/16 09/30/16 04:16 04:20 04:30 Temperature Pulse Rate 92 H 85 Pulse Rate [ 101 H From Monitor] Respiratory 22 25 H 20 Rate Respiratory Rate [ Generalized] Blood Pressure 92/74 92/74 O2 Sat by Pulse 100 100 100 Oximetry O2 Sat by Pulse Oximetry [ Assessment] 09/30/16 09/30/16 09/30/16 04:46 04:59 05:00 Temperature Pulse Rate 97 H 97 H 84 Pulse Rate [ From Monitor] Respiratory 28 H 25 H Rate Respiratory Rate [ Generalized] Blood Pressure 92/74 92/74 108/56 O2 Sat by Pulse 99 100 100 Oximetry O2 Sat by Pulse Oximetry [ Assessment] 09/30/16 09/30/16 09/30/16 05:16 05:30 05:46 Temperature Pulse Rate 105 H 107 H 99 H Pulse Rate [ From Monitor] Respiratory 27 H 26 H 22 Rate Respiratory Rate [ Generalized] Blood Pressure 108/56 108/56 108/56 O2 Sat by Pulse 100 100 100 Oximetry O2 Sat by Pulse Oximetry [ Assessment] 09/30/16 09/30/16 09/30/16 06:00 06:16 06:30 Temperature Pulse Rate 114 H 116 H 120 H Pulse Rate [ From Monitor] Respiratory 26 H 36 H 28 H Rate Respiratory Rate [ Generalized] Blood Pressure 107/62 107/62 107/62 O2 Sat by Pulse 100 100 100 Oximetry O2 Sat by Pulse Oximetry [ Assessment] 09/30/16 09/30/16 09/30/16 07:00 07:30 08:00 Temperature 98.5 F Pulse Rate 108 H 107 H 110 H Pulse Rate [ 115 H From Monitor] Respiratory 21 26 H 27 H Rate Respiratory Rate [ Generalized] Blood Pressure 114/69 99/72 100/67 O2 Sat by Pulse 100 100 100 Oximetry O2 Sat by Pulse Oximetry [ Assessment] 09/30/16 09/30/16 09/30/16 08:30 08:45 09:00 Temperature Pulse Rate 113 H 109 H 106 H Pulse Rate [ From Monitor] Respiratory 26 H 24 Rate Respiratory Rate [ Generalized] Blood Pressure 103/70 103/70 113/63 O2 Sat by Pulse 100 100 98 Oximetry O2 Sat by Pulse 100 Oximetry [ Assessment] 09/30/16 09/30/16 09/30/16 09:30 10:00 10:30 Temperature Pulse Rate 112 H 105 H 109 H Pulse Rate [ From Monitor] Respiratory 26 H 23 28 H Rate Respiratory 25 H Rate [ Generalized] Blood Pressure 126/67 121/52 121/52 O2 Sat by Pulse 99 97 98 Oximetry O2 Sat by Pulse Oximetry [ Assessment] 09/30/16 09/30/16 09/30/16 11:00 11:30 12:00 Temperature 98.4 F Pulse Rate 111 H 115 H 104 H Pulse Rate [ 108 H From Monitor] Respiratory 26 H 35 H 24 Rate Respiratory Rate [ Generalized] Blood Pressure 132/63 136/73 128/65 O2 Sat by Pulse 98 99 97 Oximetry O2 Sat by Pulse Oximetry [ Assessment] 09/30/16 09/30/16 09/30/16 12:26 13:30 13:41 Temperature Pulse Rate 96 H 109 H 110 H Pulse Rate [ From Monitor] Respiratory Rate Respiratory Rate [ Generalized] Blood Pressure 128/65 116/66 121/69 O2 Sat by Pulse 98 100 99 Oximetry O2 Sat by Pulse Oximetry [ Assessment] - General Appearance General appearance: well-developed, intubated (via trach) EENT: ATNC Respiratory: Present: Other (coarse breath sounds) Cardiology: regular, S1S2 Gastrointestinal: normal, no tenderness, no distended, obese Integumentary: no rash Musculoskeletal: other (no edema) - Lab 09/29/16 06:45 09/30/16 06:10 Most recent lab results Calcium 6.4 mg/dL (8.4-10.2) L 09/30/16 06:10 Phosphorus 4.60 mg/dL (2.5-4.5) H 09/25/16 04:20 Magnesium 1.60 mg/dL (1.7-2.3) L 09/30/16 06:10 Urine Creatinine 54.8 mg/dL (0.1-20.0) H 09/21/16 12:00 Urine Sodium 36 mEq/L 09/16/16 19:19 Urine Total Protein 16 mg/dL (5-11.8) H 09/16/16 19:19
[2016-09-30] MEDS ORDERED: LANOXIN IV SCH (16:00)
--- NOTE | 2016-09-30 16:39 | Consultation ---
History of Present Illness - Reason for Consult Consult date: 09/30/16 stroke - History of Present Illness see the chart went over all the old notes doubt new infarct she has had acute left MCA infarct ischemic littlr evidence of recocovery full note dictated plan f/u Past History Past Medical History: diabetes, hypertension, renal failure, other (Medical noncompliance) Past Surgical History: cholecystectomy (per chart review) Social history: other (per chart review, family denied any smoking or alcohol history on admission). denies: smoking, alcohol abuse, prescription drug abuse , IV drug use Family history: hypertension (per chart review) Medications and Allergies Allergies Allergy/AdvReac Type Severity Reaction Status Date / Time No Known Allergies Allergy Verified 04/14/15 06:02 Home Medications Medication Instructions Recorded Confirmed Last Taken Type Acetaminophen [Tylenol Arthritis] 650 mg PO QID PRN #30 tablet.er 02/15/1609/12 Unknown Rx Albuterol Sulfate [Proventil HFA] 6.7 gm INHALATION Q4-6H 02/15/16 09/12/16 History Insulin Glargine [Lantus VIAL] 30 units SQ QHS 02/15/16 09/12/16 02/15/16 History Clonidine HCl [Catapres] 0.3 mg PO TID #90 tablet 06/15/16 09/12/16 Unknown Rx Lisinopril [Zestril] 40 mg PO BID #60 tablet 06/15/16 09/12/16 Unknown Rx Polyethylene Glycol 3350 [Miralax 17 gm PO QDAY PRN #10 packet 06/15/16 Unknown Rx 3350] Albuterol 2 inhalation INHALATION Q4HR PRN 09/12/16 09/12/16 Unknown History AtorvaSTATin [Lipitor] 20 mg PO QHS 09/12/16 09/12/16 Unknown History Flovent 110 MCG/PUFF HFA 1 inhalation INHALATION QHS 09/12/16 09/12/16 Unknown History Furosemide [Lasix] 20 mg PO QDAY 09/12/16 09/12/16 Unknown History HumaLOG VIAL 45 units SUB-Q TID 09/12/16 09/12/16 Unknown History Insulin Aspart [NovoLOG Flexpen] 30 units SUB-Q TID MDD 30 Units 09/12/16 Unknown History Labetalol HCl 300 mg PO BID 09/12/16 09/12/16 Unknown History Spironolactone [Aldactone] 25 mg PO QDAY 09/12/16 09/12/16 Unknown History hydrALAZINE [Apresoline] 25 mg PO BID 09/12/16 09/12/16 Unknown History Active Meds: Active Medications Lipase/Protease/Amylase (Mary Reza 10,500 Unit) 1 each FEEDTUBE PRN PRN PRN Reason: For Clogged Feeding Tube Aspirin (Aspirin) 325 mg PO QDAY [facility] Last Admin: 09/30/16 09:45 Dose: 325 mg Atorvastatin Calcium (Lipitor) 40 mg PO QHS AGUSTIN Last Admin: 09/29/16 22:01 Dose: 40 mg Dextrose (D50w (25gm)) 50 gm IV PRN PRN PRN Reason: hypoglycemia Last Admin: 09/30/16 00:22 Dose: 50 gm Digoxin (Lanoxin) 0.125 mg IV Q72HR AGUSTIN Erythromycin (Shabbir-Tab) 125 mg PO Q12H AGUSTIN Stop: 10/06/16 18:59 Last Admin: 09/30/16 08:00 Dose: Not Given Haloperidol Lactate (Haldol) 5 mg IV Q6H PRN PRN Reason: Unrespon. to mult. doses BZD's Last Admin: 09/16/16 16:42 Dose: 5 mg Heparin Sodium (Porcine) (Heparin) 5,000 unit IV KERWIN PRN PRN Reason: hemodialysis Last Admin: 09/27/16 18:38 Dose: 5,000 unit Hydralazine HCl (Apresoline) 10 mg IV Q6H PRN PRN Reason: SBP > 160 Last Admin: 09/21/16 16:13 Dose: 10 mg Hydrophilic Ointment (Vaseline Lip Therapy) 1 applic TP Q2HR PRN PRN Reason: Dry Lips Last Admin: 09/17/16 22:20 Dose: 1 applic Phenylephrine HCl 100 mg/ (Sodium Chloride) 100 mls @ 3 mls/hr IV TITR AGUSTIN; 50 MCG/MIN PRN Reason: Protocol Last Titration: 09/29/16 08:10 Dose: 0 mcg/min, 0 mls/hr Sodium Bicarbonate 75 meq/ (Dextrose) 1,075 mls @ 75 mls/hr IV DIRECT AGUSTIN Last Admin: 09/30/16 12:09 Dose: 75 mls/hr Vasopressin 20 unit/ Sodium (Chloride) 101 mls @ 9.09 mls/hr IV TITR AGUSTIN; 0.03 UNITS/MIN PRN Reason: Protocol Last Admin: 09/30/16 06:51 Dose: 0.02 units/min, 6.06 mls/hr Fentanyl Citrate (Fentanyl Drip Premix) 2,000 mcg in 100 mls @ 4.37 mls/hr IV TITR AGUSTIN; 1 MCG/KG/HR PRN Reason: Protocol Last Titration: 09/25/16 03:37 Dose: 0 mcg/kg/hr, 0 mls/hr Norepinephrine (Levophed Drip 4 Mg/Ns 250 Ml) 4 mg in 250 mls @ 7.5 mls/hr IV TITR AGUSTIN; 2 MCG/MIN PRN Reason: Protocol Last Titration: 09/27/16 19:20 Dose: 0 mcg/min, 0 mls/hr Amiodarone HCl 900 mg/ (Dextrose) 500 mls @ 16.66 mls/hr IV DIRECT AGUSTIN; 0.5 MG/MIN PRN Reason: Protocol Last Admin: 09/30/16 12:10 Dose: 0.5 mg/min, 16.66 mls/hr Sodium Chloride (Nacl 0.9%) 100 mls @ 999 mls/hr IV KERWIN PRN PRN Reason: Hypotension Metronidazole (Flagyl 500 Mg/100 Ml) 500 mg in 100 mls @ 100 mls/hr IV Q8H AGUSTIN Last Admin: 09/30/16 08:20 Dose: 100 mls/hr Sodium Chloride (Nacl 0.9%) 100 mls @ 999 mls/hr IV KERWIN PRN PRN Reason: Hypotension Micafungin Sodium 100 mg/ (Sodium Chloride) 100 mls @ 100 mls/hr IV Q24H AGUSTIN PRN Reason: Protocol Last Admin: 09/29/16 20:52 Dose: 100 mls/hr Insulin Human Regular (Novolin R) 0 units SUB-Q Q6HR AGUSTIN PRN Reason: Protocol Last Admin: 09/30/16 12:17 Dose: Not Given Labetalol HCl (Normodyne) 20 mg IV Q4H PRN PRN Reason: For BP >160/100 Last Admin: 09/21/16 15:26 Dose: 20 mg Lorazepam (Ativan) 2 mg IV Q4H PRN PRN Reason: Agitation Last Admin: 09/18/16 17:47 Dose: 2 mg Metoclopramide HCl (Reglan) 5 mg IV Q6H AGUSTIN Last Admin: 09/30/16 08:20 Dose: 5 mg Metoprolol Tartrate (Lopressor) 2.5 mg IV Q4H PRN PRN Reason: HR >130 Last Admin: 09/26/16 05:39 Dose: 2.5 mg Multi-Ingred Cream/Lotion/Oil/Oint (Artificial Tears Ophth Oint) 1 applic OU Q4HR PRN PRN Reason: Dry Eye(s) Ondansetron HCl (Zofran) 4 mg IV Q8H PRN PRN Reason: N/V unrelieved by Reglan Last Admin: 09/22/16 09:43 Dose: 4 mg Pantoprazole Sodium (Protonix) 40 mg IV BID [facility] Last Admin: 09/30/16 09:45 Dose: 40 mg Simple Syrup (Simple Syrup) 30 ml FEEDTUBE PRN PRN PRN Reason: Hypoglycemia Simple Syrup (Simple Syrup) 15 ml FEEDTUBE PRN PRN PRN Reason: Hypoglycemia Sodium Bicarbonate (Sodium Bicarbonate) 325 mg FEEDTUBE PRN PRN PRN Reason: For Clogged Feeding Tube Sodium Chloride (Nacl 0.9% 500 Ml) 1 ml IV DIRECT [facility] Last Admin: 09/16/16 16:43 Dose: 1 ml Sodium Chloride (Sodium Chloride Flush Syringe 10 Ml) 10 ml IV PRN PRN PRN Reason: LINE FLUSH Exam - Constitutional Vitals: Temp Pulse Resp BP Pulse Ox 98.4 F 117 H 29 H 105/69 99 09/30/16 12:00 09/30/16 16:05 09/30/16 15:30 09/30/16 16:05 09/30/16 16:05 Results - Labs CBC & Chem 7: 09/29/16 06:45 09/30/16 06:10 Labs: Abnormal lab results 09/29/16 09/29/16 09/30/16 Range/Units 17:52 20:12 00:07 POC ABG pH (7.35-7.45) POC ABG pCO2 (35-45) POC ABG pO2 (80-105) Sodium (137-145) mmol/L Potassium (3.6-5.0) mmol/L Chloride (98-107) mmol/L Carbon Dioxide (22-30) mmol/L BUN (7-17) mg/dL Creatinine (0.7-1.2) mg/dL Glucose (65-100) mg/dL POC Glucose 50 L 51 L (70-105) Calcium (8.4-10.2) mg/dL Magnesium (1.7-2.3) mg/dL Troponin T 0.204 H* (0.00-0.029) ng/mL Cholesterol 31 L (50-199) mg/dL LDL Cholesterol Direct 4 L (50-130) mg/dL HDL Cholesterol 3 L (40-59) mg/dL 09/30/16 09/30/16 09/30/16 Range/Units 01:30 05:15 06:10 POC ABG pH (7.35-7.45) POC ABG pCO2 (35-45) POC ABG pO2 (80-105) Sodium 133 L (137-145) mmol/L Potassium 3.2 L (3.6-5.0) mmol/L Chloride 93.2 L (98-107) mmol/L Carbon Dioxide 19 L (22-30) mmol/L BUN 36 H (7-17) mg/dL Creatinine 3.2 H (0.7-1.2) mg/dL Glucose 104 H (65-100) mg/dL POC Glucose 167 H 146 H (70-105) Calcium 6.4 L (8.4-10.2) mg/dL Magnesium 1.60 L (1.7-2.3) mg/dL Troponin T (0.00-0.029) ng/mL Cholesterol (50-199) mg/dL LDL Cholesterol Direct (50-130) mg/dL HDL Cholesterol (40-59) mg/dL 09/30/16 09/30/16 Range/Units 11:26 13:39 POC ABG pH 7.479 H (7.35-7.45) POC ABG pCO2 29.8 L (35-45) POC ABG pO2 117 H (80-105) Sodium (137-145) mmol/L Potassium (3.6-5.0) mmol/L Chloride (98-107) mmol/L Carbon Dioxide (22-30) mmol/L BUN (7-17) mg/dL Creatinine (0.7-1.2) mg/dL Glucose (65-100) mg/dL POC Glucose 140 H (70-105) Calcium (8.4-10.2) mg/dL Magnesium (1.7-2.3) mg/dL Troponin T (0.00-0.029) ng/mL Cholesterol (50-199) mg/dL LDL Cholesterol Direct (50-130) mg/dL HDL Cholesterol (40-59) mg/dL
[2016-09-30] MEDS: MYCAMINE 100 MG in NACL 0.9% 100 ML IV SCH (21:25)
--- NOTE | 2016-09-30 23:01 | Consultation ---
HISTORY OF PRESENT ILLNESS: This is a 46-year-old female that was initially admitted to [facility] on 09/05/2016. She was admitted to the Emergency Room with acute onset of right hemiparesis and a large left thalamic infarct. In the interval, had issue of a subacute MCA infarct and she in the interval has had 1 CT scan, which does not show any resolution of her problem. at this time, she continues to be in a comatose state, not speaking, not responding to commands. She has a right hemiparesis, left gaze preference, no seizure activity, on the ventilator. I do not see that she responds to verbal commands. She has her eyes open. The gaze is right and left is full, but she does have at times disconjugate gaze. Motor tone is symmetrically reduced. She has been hospitalized in the ICU since admission. She has had a prior history of asthma, renal insufficiency, congestive heart failure, diabetes, hypertension, anemia, anxiety. She presented to the hospital, all of a sudden her face became twisted. She had difficulty speaking, was aphasic and was felt to have an acute left hemisphere stroke. She received IV labetalol and the patient did receive TPA, but unfortunately did not show any improvement and since being admitted, the patient's condition has not substantially improved and she was noted to have an acute middle cerebral artery infarction with hypertensive emergency, type 2 diabetes, renal insufficiency and hypokalemia. Subsequent to admission, there has been no substantial improvement in the patient's condition. On evaluating her, she is alert, but does not move either right or left side to command. Plan to recheck her CT scan. I do not see any evidence to suggest seizures. I do not think she has had a new acute stroke. I actually do not see much evidence she had improvement from the prior stroke in the left hemisphere. This is not substantially changed. PLAN: I will follow up. We will review another CAT scan and make further recommendations. JOB# [id number] JORGE/NTS
[2016-10-01] MEDS: FLAGYL 500 MG/100 ML 500 MG/100 ML BAG IV SCH ×2 (01:32→09:19)
[2016-10-01] MEDS: LOPRESSOR IV PRN (01:50)
[2016-10-01] MEDS: HumuLIN R SUB-Q SCH ×3 (02:17→18:30)
[2016-10-01] MEDS: REGLAN IV SCH ×3 (02:22→21:08)
[2016-10-01] MEDS: PROTONIX IV SCH ×3 (02:47→21:09)
[2016-10-01] MEDS ORDERED: SODIUM BICARBONATE 75 MEQ in D5W 1,000 ML IV SCH (03:00)
[2016-10-01 06:33] LABS: Hematocrit 23.3 % (30.3-42.9); Hemoglobin 7.3 gm/dl (10.1-14.3); Mean Corpuscular HGB Conc 31 % (30-34); Mean Corpuscular Hemoglobin 27 pg (28-32); Mean Corpuscular Volume 85 fl (79-97); Red Blood Count 2.75 M/mm3 (3.65-5.03)
[2016-10-01 06:54] LABS: Platelet Count 72 K/mm3 (140-440); Red Cell Distribution Width 20.6 % (13.2-15.2)
[2016-10-01 09:06] LABS: Anisocytosis 1+; Band Neutrophils # (Manual) 6.9 K/mm3; Basophils % (Manual) 0 % (0.0-1.8); Eosinophils % (Manual) 0 % (0.0-4.3); Total Cells Counted 100
[2016-10-01 09:07] LABS: Dohle Bodies 1+; Hypochromasia Few; Large Platelets Few; Platelet Estimate Consistent w Auto
[2016-10-01] MEDS: ASPIRIN PO SCH (10:58)
--- NOTE | 2016-10-01 12:41 | Progress Note ---
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 * Acute hypoxic respiratory failure * Left renal artery stenosis * Metabolic acidosis - improved * Anemia * Hyponatremia - multifactorial Plan: * Hemodialysis today * Pressors prn MAP>65 * Rate control per cardiology * Transfusion of pRBC per primary team * Abx/antifungal per ID * Vent management per critical care * Dose medications for renal function * Avoid potential nephrotoxins Subjective Date of service: 10/01/16 Principal diagnosis: Acute resp failure on MVS; S/P Acute CVA; Acute Encephalopathy; JUANITA Interval history: No acute events overnight Objective - Vital Signs Vital signs: Vital Signs - 12hr 10/01/16 10/01/16 10/01/16 01:00 01:30 01:50 Temperature Pulse Rate 116 H 114 H 138 H Respiratory 35 H 38 H Rate Blood Pressure 115/59 121/69 121/69 O2 Sat by Pulse 100 97 Oximetry O2 Sat by Pulse Oximetry [ Assessment] 10/01/16 10/01/16 10/01/16 02:00 02:30 02:32 Temperature Pulse Rate 90 94 H 114 H Respiratory 38 H 25 H Rate Blood Pressure 106/51 111/60 O2 Sat by Pulse 100 100 Oximetry O2 Sat by Pulse Oximetry [ Assessment] 10/01/16 10/01/16 10/01/16 03:00 03:30 03:41 Temperature 97.7 F Pulse Rate 93 H 96 H Respiratory 29 H 31 H Rate Blood Pressure 114/62 121/66 O2 Sat by Pulse 100 100 Oximetry O2 Sat by Pulse Oximetry [ Assessment] 10/01/16 10/01/16 10/01/16 04:00 04:25 04:30 Temperature Pulse Rate 93 H 110 H 92 H Respiratory 36 H 36 H Rate Blood Pressure 119/57 129/64 129/64 O2 Sat by Pulse 100 100 100 Oximetry O2 Sat by Pulse Oximetry [ Assessment] 10/01/16 10/01/16 10/01/16 05:00 05:30 06:00 Temperature Pulse Rate 111 H 119 H 111 H Respiratory 26 H 30 H 24 Rate Blood Pressure 129/63 120/53 124/65 O2 Sat by Pulse 100 100 100 Oximetry O2 Sat by Pulse Oximetry [ Assessment] 10/01/16 10/01/16 10/01/16 06:30 07:00 07:21 Temperature Pulse Rate 108 H 91 H 92 H Respiratory 29 H 18 Rate Blood Pressure 111/61 106/61 106/61 O2 Sat by Pulse 100 100 100 Oximetry O2 Sat by Pulse Oximetry [ Assessment] 10/01/16 10/01/16 10/01/16 07:27 07:30 08:00 Temperature 98.7 F Pulse Rate 122 H 113 H Respiratory 30 H 36 H Rate Blood Pressure 113/57 113/57 O2 Sat by Pulse 100 93 Oximetry O2 Sat by Pulse 100 Oximetry [ Assessment] 10/01/16 10/01/16 10/01/16 08:30 09:00 09:30 Temperature Pulse Rate 97 H 100 H 99 H Respiratory 34 H 27 H 25 H Rate Blood Pressure 123/67 135/67 123/58 O2 Sat by Pulse 91 99 100 Oximetry O2 Sat by Pulse Oximetry [ Assessment] 10/01/16 10/01/16 10/01/16 10:00 10:30 11:00 Temperature Pulse Rate 97 H 96 H 97 H Respiratory 26 H 26 H 26 H Rate Blood Pressure 116/62 124/63 123/58 O2 Sat by Pulse 100 100 100 Oximetry O2 Sat by Pulse Oximetry [ Assessment] 10/01/16 11:49 Temperature Pulse Rate 98 H Respiratory Rate Blood Pressure 107/66 O2 Sat by Pulse 100 Oximetry O2 Sat by Pulse Oximetry [ Assessment] - General Appearance General appearance: intubated (via trach) EENT: ATNC Respiratory: Present: Other (coarse breath sounds) Cardiology: tachycardia, S1S2 Gastrointestinal: normal, no distended, obese Integumentary: no rash Musculoskeletal: other (trace edema) - Lab 10/01/16 06:00 10/01/16 06:00 Most recent lab results Calcium 7.0 mg/dL (8.4-10.2) L 10/01/16 06:00 Phosphorus 4.60 mg/dL (2.5-4.5) H 09/25/16 04:20 Magnesium 1.90 mg/dL (1.7-2.3) 10/01/16 06:00 Urine Creatinine 54.8 mg/dL (0.1-20.0) H 09/21/16 12:00 Urine Sodium 36 mEq/L 09/16/16 19:19 Urine Total Protein 16 mg/dL (5-11.8) H 09/16/16 19:19
--- NOTE | 2016-10-01 12:59 | Progress Note ---
Assessment and Plan (1) Acute respiratory failure with hypoxia Current Visit: Yes Status: Acute Plan to address problem: - continue aspiration precautions / address VAP bundles - continue to wean oxygen for MAP > 94% - continue bronchodilators and pulmonary toilet - tapered off systemic steroids (no active needs pulmonary-[place]) - s/p tracheostomy - placed back on AC mode after review of ABG and secondary to increased work of breathing - failed bedside SBT - resume daily weaning attempts as tolerated in am (2) Acute CVA (cerebrovascular accident) Current Visit: Yes Status: Acute Plan to address problem: - out of tpA window (initially stopped due to uncontrolled HTN) - Left MCA teritory stroke with some midline shift on last CT - seen by neurology and prognosis for recovery of mental status guarded to poor - optimizing secondary prevention modalities now (BP, lipid anti-platelet therapy) - off systemic steroids now (started earlier for edema) (3) Hypertensive emergency Current Visit: Yes Status: Acute Plan to address problem: - stopped all antihypertensives while septic - following cllinically (4) Obesity (BMI 35.0-39.9 without comorbidity) Current Visit: Yes Status: Chronic Plan to address problem: - nutrition consult placed for enteral formulation - follow clinically (5) Type 2 diabetes mellitus Current Visit: Yes Status: Chronic Qualifiers: Diabetes mellitus complication status: D Diabetes mellitus complication detail: D Diabetic retinopathy severity: D Proliferative retinopathy type: P Diabetes mellitus macular edema: D Diabetes mellitus snf insulin use : D Laterality: L Chronic kidney disease stage: C Plan to address problem: - continue SSI - discontinued lantus re: hypoglycemia (6) Leukocytosis (leucocytosis) Current Visit: Yes Status: Acute Qualifiers: Leukocytosis type: leukemoid reaction Qualified Code(s): D72.823 - Leukemoid reaction Plan to address problem: - has been spiking fevers also - fungemia noted - started diflucan as growing dann albicans but will follow sensitivities - will discontinue diflucan re: amiodarone interaction and begin micafungin - prn CBC's (7) Agitation Current Visit: Yes Status: Acute Plan to address problem: - prn sedation / analgesia - tapered off seroquel for now (8) Atrial fibrillation Current Visit: Yes Status: Acute Qualifiers: Atrial fibrillation type: A Plan to address problem: - failed cardioversion earlier - cardiology evaluation ongoing - on amiodarone drip - appears to have converted to sinus (9) JUANITA (acute kidney injury) Current Visit: Yes Status: Acute Plan to address problem: - on Dialysis now - oliguric - continue vasopressor support re: cardiorenal issues and to aid dialysis - BP's better and off vasopressin today - apparently RIJ CVL may be used as vascath tentatively - HD/UF ongoing at time of my examination (10) Pyrexia of unknown origin Current Visit: Yes Status: Acute Plan to address problem: - will get dopplers as part of a PUO work-up to r/o VTE - continue to treat with AB;'s empirically - continue micafungin (11) Severe sepsis Current Visit: Yes Status: Acute Plan to address problem: - continue AB's and follow cultures - resume vasopressors for MAP < 60mmHg not responsive to volume - continue micafungin - all central vascular access has been discontinued after fungemia reported - care plan formulated with ID input - vascath and PICC pulled with new RIJ placed (trialysis catheter apparently) - clinically much better and off all vasopressors (12) Emesis Current Visit: Yes Status: Acute Qualifiers: Vomiting type: V Vomiting Intractability: V Nausea presence: N Plan to address problem: - continue PEG to LIS - continue reglan - holding erythromycin - still with large volume effluent - GI consulted (13) Discharge planning issues Current Visit: Yes Status: Acute Plan to address problem: - she remains critically ill on life sustaining interventions including MVS and at risk for further acute deterioration including .....30' CCT ....snf prognosis is guarded ...care plan discussed during team rounds Subjective Date of service: 10/01/16 Principal diagnosis: Acute resp failure on MVS; S/P Acute CVA; Acute Encephalopathy; JUANITA Interval history: Seen and examined at bedside; 24 hour events reviewed; nursing and respiratory care staff consulted; no adverse overnight events reported to me; remains on MVS ; AMS is persistent; just began dialysis and toleraing well so far; No emesis or overt aspiration and no gross bleeding Objective Vital Signs - 12hr 10/01/16 10/01/16 10/01/16 01:00 01:30 01:50 Temperature Pulse Rate 116 H 114 H 138 H Respiratory 35 H 38 H Rate Blood Pressure 115/59 121/69 121/69 O2 Sat by Pulse 100 97 Oximetry O2 Sat by Pulse Oximetry [ Assessment] 10/01/16 10/01/16 10/01/16 02:00 02:30 02:32 Temperature Pulse Rate 90 94 H 114 H Respiratory 38 H 25 H Rate Blood Pressure 106/51 111/60 O2 Sat by Pulse 100 100 Oximetry O2 Sat by Pulse Oximetry [ Assessment] 10/01/16 10/01/16 10/01/16 03:00 03:30 03:41 Temperature 97.7 F Pulse Rate 93 H 96 H Respiratory 29 H 31 H Rate Blood Pressure 114/62 121/66 O2 Sat by Pulse 100 100 Oximetry O2 Sat by Pulse Oximetry [ Assessment] 10/01/16 10/01/16 10/01/16 04:00 04:25 04:30 Temperature Pulse Rate 93 H 110 H 92 H Respiratory 36 H 36 H Rate Blood Pressure 119/57 129/64 129/64 O2 Sat by Pulse 100 100 100 Oximetry O2 Sat by Pulse Oximetry [ Assessment] 10/01/16 10/01/16 10/01/16 05:00 05:30 06:00 Temperature Pulse Rate 111 H 119 H 111 H Respiratory 26 H 30 H 24 Rate Blood Pressure 129/63 120/53 124/65 O2 Sat by Pulse 100 100 100 Oximetry O2 Sat by Pulse Oximetry [ Assessment] 10/01/16 10/01/16 10/01/16 06:30 07:00 07:21 Temperature Pulse Rate 108 H 91 H 92 H Respiratory 29 H 18 Rate Blood Pressure 111/61 106/61 106/61 O2 Sat by Pulse 100 100 100 Oximetry O2 Sat by Pulse Oximetry [ Assessment] 10/01/16 10/01/16 10/01/16 07:27 07:30 08:00 Temperature 98.7 F Pulse Rate 122 H 113 H Respiratory 30 H 36 H Rate Blood Pressure 113/57 113/57 O2 Sat by Pulse 100 93 Oximetry O2 Sat by Pulse 100 Oximetry [ Assessment] 10/01/16 10/01/16 10/01/16 08:30 09:00 09:30 Temperature Pulse Rate 97 H 100 H 99 H Respiratory 34 H 27 H 25 H Rate Blood Pressure 123/67 135/67 123/58 O2 Sat by Pulse 91 99 100 Oximetry O2 Sat by Pulse Oximetry [ Assessment] 10/01/16 10/01/16 10/01/16 10:00 10:30 11:00 Temperature Pulse Rate 97 H 96 H 97 H Respiratory 26 H 26 H 26 H Rate Blood Pressure 116/62 124/63 123/58 O2 Sat by Pulse 100 100 100 Oximetry O2 Sat by Pulse Oximetry [ Assessment] 10/01/16 11:49 Temperature Pulse Rate 98 H Respiratory Rate Blood Pressure 107/66 O2 Sat by Pulse 100 Oximetry O2 Sat by Pulse Oximetry [ Assessment] Constitutional: no acute distress, other (encephalopathic; off sedation now) Eyes: non-icteric, other (tracheostomy tube in midline of neck) ENT: oropharynx moist Neck: supple, no lymphadenopathy Effort: mildly labored Ascultation: Bilateral: rales (bases) Cardiovascular: regular rate and rhythm Gastrointestinal: hypoactive bowel sounds, soft, non-tender, non-distended Integumentary: normal Extremities: no cyanosis, no edema, pulses normal, no ischemia or petechiae Neurologic: pupils equal and round, other (sedated) Psychiatric: other (unable to assess) CBC and BMP: 10/01/16 06:00 10/01/16 06:00 ABG, PT/INR, D-dimer: ABG POC ABG pH 7.479 (7.35-7.45) H 09/30/16 13:39 POC ABG pCO2 29.8 (35-45) L 09/30/16 13:39 POC ABG pO2 117 (80-105) H 09/30/16 13:39 POC ABG HCO3 22.2 09/30/16 13:39 POC ABG Total CO2 23 09/30/16 13:39 POC ABG O2 Sat 99 09/30/16 13:39 PT/INR, D-dimer PT 13.8 Sec. (12.2-14.9) 09/15/16 05:00 INR 1.01 (0.87-1.13) 09/15/16 05:00 Abnormal lab findings: Abnormal Labs 09/03/16 09/03/16 09/03/16 12:12 15:07 16:20 WBC RBC Hgb Hct MCV MCH MCHC RDW Plt Count Lymph % (Auto) [place] % (Auto) Lymph # [place] # Seg Neutrophils % Seg Neuts % (Manual) Lymphocytes % (Manual) Monocytes % (Manual) Eosinophils % (Manual) Basophils % (Manual) Nucleated RBC % Seg Neutrophils # Seg Neutrophils # Man Lymphocytes # (Manual) Monocytes # (Manual) Eosinophils # (Manual) Fibrinogen dRVVT Confirm Interp Factor V Activity POC ABG pH 7.452 H POC ABG pCO2 POC ABG pO2 Sodium Potassium Chloride Carbon Dioxide BUN Creatinine Glucose POC Glucose 178 H Lactic Acid Calcium Phosphorus 2.20 L Magnesium 1.60 L Direct Bilirubin Troponin T C-Reactive Protein Total Protein Albumin Triglycerides Cholesterol LDL Cholesterol Direct HDL Cholesterol Urine WBC (Auto) Urine Creatinine Urine Total Protein Vancomycin Trough Rheumatoid Factor Complement C4 Crossmatch 09/03/16 09/03/16 09/03/16 17:57 17:58 23:50 WBC RBC Hgb Hct MCV MCH MCHC RDW Plt Count Lymph % (Auto) [place] % (Auto) Lymph # [place] # Seg Neutrophils % Seg Neuts % (Manual) Lymphocytes % (Manual) Monocytes % (Manual) Eosinophils % (Manual) Basophils % (Manual) Nucleated RBC % Seg Neutrophils # Seg Neutrophils # Man Lymphocytes # (Manual) Monocytes # (Manual) Eosinophils # (Manual) Fibrinogen dRVVT Confirm Interp Factor V Activity POC ABG pH POC ABG pCO2 POC ABG pO2 Sodium Potassium Chloride Carbon Dioxide BUN Creatinine Glucose POC Glucose 162 H 145 H Lactic Acid Calcium Phosphorus 2.30 L Magnesium Direct Bilirubin Troponin T C-Reactive Protein Total Protein Albumin Triglycerides Cholesterol LDL Cholesterol Direct HDL Cholesterol Urine WBC (Auto) Urine Creatinine Urine Total Protein Vancomycin Trough Rheumatoid Factor Complement C4 Crossmatch 09/04/16 09/04/16 09/04/16 03:31 03:31 05:42 WBC RBC Hgb 9.7 L D Hct MCV 72 L MCH 23 L MCHC RDW 17.5 H Plt Count Lymph % (Auto) 11.1 L [place] % (Auto) Lymph # [place] # Seg Neutrophils % 84.3 H Seg Neuts % (Manual) Lymphocytes % (Manual) Monocytes % (Manual) Eosinophils % (Manual) Basophils % (Manual) Nucleated RBC % Seg Neutrophils # 8.9 H Seg Neutrophils # Man Lymphocytes # (Manual) Monocytes # (Manual) Eosinophils # (Manual) Fibrinogen dRVVT Confirm Interp Factor V Activity POC ABG pH POC ABG pCO2 POC ABG pO2 Sodium 135 L Potassium 2.9 L* Chloride 97.2 L Carbon Dioxide 19 L BUN Creatinine 1.7 H Glucose 170 H POC Glucose 152 H Lactic Acid Calcium Phosphorus Magnesium Direct Bilirubin Troponin T C-Reactive Protein Total Protein Albumin Triglycerides 160 H Cholesterol LDL Cholesterol Direct HDL Cholesterol 31 L Urine WBC (Auto) Urine Creatinine Urine Total Protein Vancomycin Trough Rheumatoid Factor Complement C4 Crossmatch 09/04/16 09/04/16 09/04/16 11:34 17:46 23:29 WBC RBC Hgb Hct MCV MCH MCHC RDW Plt Count Lymph % (Auto) [place] % (Auto) Lymph # [place] # Seg Neutrophils % Seg Neuts % (Manual) Lymphocytes % (Manual) Monocytes % (Manual) Eosinophils % (Manual) Basophils % (Manual) Nucleated RBC % Seg Neutrophils # Seg Neutrophils # Man Lymphocytes # (Manual) Monocytes # (Manual) Eosinophils # (Manual) Fibrinogen dRVVT Confirm Interp Factor V Activity POC ABG pH POC ABG pCO2 POC ABG pO2 Sodium Potassium Chloride Carbon Dioxide BUN Creatinine Glucose POC Glucose 165 H 210 H 139 H Lactic Acid Calcium Phosphorus Magnesium Direct Bilirubin Troponin T C-Reactive Protein Total Protein Albumin Triglycerides Cholesterol LDL Cholesterol Direct HDL Cholesterol Urine WBC (Auto) Urine Creatinine Urine Total Protein Vancomycin Trough Rheumatoid Factor Complement C4 Crossmatch 09/05/16 09/05/16 09/05/16 04:05 04:05 05:38 WBC RBC Hgb Hct MCV 76 L D MCH 23 L MCHC RDW 17.8 H Plt Count Lymph % (Auto) [place] % (Auto) Lymph # [place] # Seg Neutrophils % Seg Neuts % (Manual) Lymphocytes % (Manual) Monocytes % (Manual) Eosinophils % (Manual) Basophils % (Manual) Nucleated RBC % Seg Neutrophils # Seg Neutrophils # Man Lymphocytes # (Manual) Monocytes # (Manual) Eosinophils # (Manual) Fibrinogen dRVVT Confirm Interp Factor V Activity POC ABG pH POC ABG pCO2 POC ABG pO2 Sodium 134 L Potassium Chloride Carbon Dioxide 18 L BUN Creatinine 1.8 H Glucose 192 H POC Glucose 175 H Lactic Acid Calcium Phosphorus Magnesium Direct Bilirubin Troponin T C-Reactive Protein Total Protein Albumin Triglycerides Cholesterol LDL Cholesterol Direct HDL Cholesterol Urine WBC (Auto) Urine Creatinine Urine Total Protein Vancomycin Trough Rheumatoid Factor Complement C4 Crossmatch 09/05/16 09/05/16 09/05/16 11:38 17:48 23:22 WBC RBC Hgb Hct MCV MCH MCHC RDW Plt Count Lymph % (Auto) [place] % (Auto) Lymph # [place] # Seg Neutrophils % Seg Neuts % (Manual) Lymphocytes % (Manual) Monocytes % (Manual) Eosinophils % (Manual) Basophils % (Manual) Nucleated RBC % Seg Neutrophils # Seg Neutrophils # Man Lymphocytes # (Manual) Monocytes # (Manual) Eosinophils # (Manual) Fibrinogen dRVVT Confirm Interp Factor V Activity POC ABG pH POC ABG pCO2 POC ABG pO2 Sodium Potassium Chloride Carbon Dioxide BUN Creatinine Glucose POC Glucose 164 H 186 H 195 H Lactic Acid Calcium Phosphorus Magnesium Direct Bilirubin Troponin T C-Reactive Protein Total Protein Albumin Triglycerides Cholesterol LDL Cholesterol Direct HDL Cholesterol Urine WBC (Auto) Urine Creatinine Urine Total Protein Vancomycin Trough Rheumatoid Factor Complement C4 Crossmatch 09/06/16 09/06/16 09/06/16 04:12 05:59 07:32 WBC RBC Hgb Hct MCV MCH MCHC RDW Plt Count Lymph % (Auto) [place] % (Auto) Lymph # [place] # Seg Neutrophils % Seg Neuts % (Manual) Lymphocytes % (Manual) Monocytes % (Manual) Eosinophils % (Manual) Basophils % (Manual) Nucleated RBC % Seg Neutrophils # Seg Neutrophils # Man Lymphocytes # (Manual) Monocytes # (Manual) Eosinophils # (Manual) Fibrinogen dRVVT Confirm Interp Factor V Activity POC ABG pH 7.514 H POC ABG pCO2 29.1 L POC ABG pO2 72 L Sodium 133 L Potassium 3.4 L Chloride 94.9 L Carbon Dioxide 19 L BUN 30 H Creatinine 2.1 H Glucose 139 H POC Glucose 146 H Lactic Acid Calcium Phosphorus Magnesium Direct Bilirubin Troponin T C-Reactive Protein Total Protein Albumin Triglycerides Cholesterol LDL Cholesterol Direct HDL Cholesterol Urine WBC (Auto) Urine Creatinine Urine Total Protein Vancomycin Trough Rheumatoid Factor Complement C4 Crossmatch 09/06/16 09/06/16 09/06/16 11:57 17:58 19:02 WBC RBC Hgb Hct MCV MCH MCHC RDW Plt Count Lymph % (Auto) [place] % (Auto) Lymph # [place] # Seg Neutrophils % Seg Neuts % (Manual) Lymphocytes % (Manual) Monocytes % (Manual) Eosinophils % (Manual) Basophils % (Manual) Nucleated RBC % Seg Neutrophils # Seg Neutrophils # Man Lymphocytes # (Manual) Monocytes # (Manual) Eosinophils # (Manual) Fibrinogen dRVVT Confirm Interp Factor V Activity POC ABG pH 7.465 H POC ABG pCO2 32.0 L POC ABG pO2 Sodium Potassium Chloride Carbon Dioxide BUN Creatinine Glucose POC Glucose 165 H 160 H Lactic Acid Calcium Phosphorus Magnesium Direct Bilirubin Troponin T C-Reactive Protein Total Protein Albumin Triglycerides Cholesterol LDL Cholesterol Direct HDL Cholesterol Urine WBC (Auto) Urine Creatinine Urine Total Protein Vancomycin Trough Rheumatoid Factor Complement C4 Crossmatch 09/06/16 09/07/16 09/07/16 23:45 02:47 02:47 WBC RBC Hgb Hct MCV MCH MCHC RDW Plt Count Lymph % (Auto) [place] % (Auto) Lymph # [place] # Seg Neutrophils % Seg Neuts % (Manual) Lymphocytes % (Manual) Monocytes % (Manual) Eosinophils % (Manual) Basophils % (Manual) Nucleated RBC % Seg Neutrophils # Seg Neutrophils # Man Lymphocytes # (Manual) Monocytes # (Manual) Eosinophils # (Manual) Fibrinogen dRVVT Confirm Interp Factor V Activity POC ABG pH POC ABG pCO2 POC ABG pO2 Sodium Potassium Chloride Carbon Dioxide BUN Creatinine Glucose POC Glucose 204 H Lactic Acid Calcium Phosphorus Magnesium Direct Bilirubin Troponin T C-Reactive Protein Total Protein Albumin Triglycerides Cholesterol LDL Cholesterol Direct HDL Cholesterol Urine WBC (Auto) 68.0 H Urine Creatinine 106.1 H Urine Total Protein Vancomycin Trough Rheumatoid Factor Complement C4 Crossmatch 09/07/16 09/07/16 09/07/16 04:50 06:19 06:39 WBC RBC Hgb Hct MCV MCH MCHC RDW Plt Count Lymph % (Auto) [place] % (Auto) Lymph # [place] # Seg Neutrophils % Seg Neuts % (Manual) Lymphocytes % (Manual) Monocytes % (Manual) Eosinophils % (Manual) Basophils % (Manual) Nucleated RBC % Seg Neutrophils # Seg Neutrophils # Man Lymphocytes # (Manual) Monocytes # (Manual) Eosinophils # (Manual) Fibrinogen dRVVT Confirm Interp Factor V Activity POC ABG pH 7.457 H POC ABG pCO2 32.1 L POC ABG pO2 76 L Sodium 132 L Potassium Chloride 94.7 L Carbon Dioxide BUN 53 H Creatinine 2.9 H Glucose 151 H POC Glucose 149 H Lactic Acid Calcium Phosphorus Magnesium Direct Bilirubin Troponin T C-Reactive Protein Total Protein Albumin Triglycerides Cholesterol LDL Cholesterol Direct HDL Cholesterol Urine WBC (Auto) Urine Creatinine Urine Total Protein Vancomycin Trough Rheumatoid Factor Complement C4 Crossmatch 09/07/16 09/07/16 09/07/16 09:20 11:43 11:43 WBC 19.4 H RBC Hgb 8.3 L Hct 26.4 L D MCV 72 L D MCH 22 L MCHC RDW 17.9 H Plt Count Lymph % (Auto) 8.5 L [place] % (Auto) Lymph # [place] # 1.0 H Seg Neutrophils % 85.8 H Seg Neuts % (Manual) Lymphocytes % (Manual) Monocytes % (Manual) Eosinophils % (Manual) Basophils % (Manual) Nucleated RBC % Seg Neutrophils # 16.6 H Seg Neutrophils # Man Lymphocytes # (Manual) Monocytes # (Manual) Eosinophils # (Manual) Fibrinogen dRVVT Confirm Interp Factor V Activity POC ABG pH POC ABG pCO2 POC ABG pO2 Sodium 134 L Potassium Chloride 97.2 L Carbon Dioxide 20 L BUN 58 H Creatinine 2.9 H Glucose 147 H POC Glucose Lactic Acid Calcium Phosphorus 2.40 L Magnesium 2.40 H Direct Bilirubin Troponin T C-Reactive Protein Total Protein 5.8 L Albumin 2.2 L Triglycerides Cholesterol LDL Cholesterol Direct HDL Cholesterol Urine WBC (Auto) Urine Creatinine Urine Total Protein Vancomycin Trough Rheumatoid Factor Complement C4 58 H Crossmatch 09/07/16 09/07/16 09/07/16 11:50 16:00 17:31 WBC RBC Hgb Hct MCV MCH MCHC RDW Plt Count Lymph % (Auto) [place] % (Auto) Lymph # [place] # Seg Neutrophils % Seg Neuts % (Manual) Lymphocytes % (Manual) Monocytes % (Manual) Eosinophils % (Manual) Basophils % (Manual) Nucleated RBC % Seg Neutrophils # Seg Neutrophils # Man Lymphocytes # (Manual) Monocytes # (Manual) Eosinophils # (Manual) Fibrinogen dRVVT Confirm Interp Factor V Activity POC ABG pH POC ABG pCO2 POC ABG pO2 158 H Sodium Potassium Chloride Carbon Dioxide BUN Creatinine Glucose POC Glucose 175 H Lactic Acid Calcium Phosphorus Magnesium Direct Bilirubin Troponin T C-Reactive Protein Total Protein Albumin Triglycerides Cholesterol LDL Cholesterol Direct HDL Cholesterol Urine WBC (Auto) Urine Creatinine 66.3 H Urine Total Protein Vancomycin Trough Rheumatoid Factor Complement C4 Crossmatch 09/07/16 09/08/16 09/08/16 23:50 05:46 06:18 WBC 17.8 H RBC 3.58 L Hgb 8.1 L Hct 25.5 L MCV 71 L MCH 23 L MCHC RDW 18.4 H Plt Count Lymph % (Auto) [place] % (Auto) Lymph # [place] # Seg Neutrophils % Seg Neuts % (Manual) 92.0 H Lymphocytes % (Manual) 6.0 L Monocytes % (Manual) Eosinophils % (Manual) Basophils % (Manual) Nucleated RBC % Seg Neutrophils # Seg Neutrophils # Man 16.4 H Lymphocytes # (Manual) 1.1 L Monocytes # (Manual) Eosinophils # (Manual) Fibrinogen dRVVT Confirm Interp Factor V Activity POC ABG pH POC ABG pCO2 34.3 L POC ABG pO2 71 L Sodium Potassium Chloride Carbon Dioxide BUN Creatinine Glucose POC Glucose 216 H Lactic Acid Calcium Phosphorus Magnesium Direct Bilirubin Troponin T C-Reactive Protein Total Protein Albumin Triglycerides Cholesterol LDL Cholesterol Direct HDL Cholesterol Urine WBC (Auto) Urine Creatinine Urine Total Protein Vancomycin Trough Rheumatoid Factor Complement C4 Crossmatch 09/08/16 09/08/16 09/08/16 06:18 06:51 10:55 WBC RBC Hgb Hct MCV MCH MCHC RDW Plt Count Lymph % (Auto) [place] % (Auto) Lymph # [place] # Seg Neutrophils % Seg Neuts % (Manual) Lymphocytes % (Manual) Monocytes % (Manual) Eosinophils % (Manual) Basophils % (Manual) Nucleated RBC % Seg Neutrophils # Seg Neutrophils # Man Lymphocytes # (Manual) Monocytes # (Manual) Eosinophils # (Manual) Fibrinogen dRVVT Confirm Interp Factor V Activity POC ABG pH POC ABG pCO2 POC ABG pO2 Sodium 133 L Potassium Chloride 96.9 L Carbon Dioxide 20 L BUN 63 H Creatinine 2.7 H Glucose 195 H POC Glucose 204 H 169 H Lactic Acid Calcium Phosphorus Magnesium Direct Bilirubin Troponin T C-Reactive Protein Total Protein Albumin Triglycerides Cholesterol LDL Cholesterol Direct HDL Cholesterol Urine WBC (Auto) Urine Creatinine Urine Total Protein Vancomycin Trough Rheumatoid Factor Complement C4 Crossmatch 09/08/16 09/08/16 09/08/16 11:48 11:48 11:48 WBC RBC Hgb Hct MCV MCH MCHC RDW Plt Count Lymph % (Auto) [place] % (Auto) Lymph # [place] # Seg Neutrophils % Seg Neuts % (Manual) Lymphocytes % (Manual) Monocytes % (Manual) Eosinophils % (Manual) Basophils % (Manual) Nucleated RBC % Seg Neutrophils # Seg Neutrophils # Man Lymphocytes # (Manual) Monocytes # (Manual) Eosinophils # (Manual) Fibrinogen 750 H dRVVT Confirm Interp Factor V Activity POC ABG pH POC ABG pCO2 POC ABG pO2 Sodium Potassium Chloride Carbon Dioxide BUN Creatinine Glucose POC Glucose Lactic Acid Calcium Phosphorus Magnesium Direct Bilirubin Troponin T C-Reactive Protein 15.70 H Total Protein Albumin Triglycerides Cholesterol LDL Cholesterol Direct HDL Cholesterol Urine WBC (Auto) Urine Creatinine Urine Total Protein Vancomycin Trough Rheumatoid Factor 24 H Complement C4 Crossmatch 09/08/16 09/08/16 09/09/16 15:35 18:25 00:24 WBC RBC Hgb Hct MCV MCH MCHC RDW Plt Count Lymph % (Auto) [place] % (Auto) Lymph # [place] # Seg Neutrophils % Seg Neuts % (Manual) Lymphocytes % (Manual) Monocytes % (Manual) Eosinophils % (Manual) Basophils % (Manual) Nucleated RBC % Seg Neutrophils # Seg Neutrophils # Man Lymphocytes # (Manual) Monocytes # (Manual) Eosinophils # (Manual) Fibrinogen dRVVT Confirm Interp Factor V Activity 182 H POC ABG pH POC ABG pCO2 POC ABG pO2 Sodium Potassium Chloride Carbon Dioxide BUN Creatinine Glucose POC Glucose 184 H 216 H Lactic Acid Calcium Phosphorus Magnesium Direct Bilirubin Troponin T C-Reactive Protein Total Protein Albumin Triglycerides Cholesterol LDL Cholesterol Direct HDL Cholesterol Urine WBC (Auto) Urine Creatinine Urine Total Protein Vancomycin Trough Rheumatoid Factor Complement C4 Crossmatch 09/09/16 09/09/16 09/09/16 03:00 03:00 04:04 WBC 27.9 H RBC Hgb 8.7 L Hct 28.1 L MCV 72 L MCH 22 L MCHC RDW 18.4 H Plt Count 485 H Lymph % (Auto) [place] % (Auto) Lymph # [place] # Seg Neutrophils % Seg Neuts % (Manual) 77.0 H Lymphocytes % (Manual) 9.0 L Monocytes % (Manual) Eosinophils % (Manual) Basophils % (Manual) Nucleated RBC % Seg Neutrophils # Seg Neutrophils # Man 21.5 H Lymphocytes # (Manual) Monocytes # (Manual) 2.0 H Eosinophils # (Manual) Fibrinogen dRVVT Confirm Interp Factor V Activity POC ABG pH POC ABG pCO2 POC ABG pO2 121 H Sodium 135 L Potassium Chloride 96.3 L Carbon Dioxide 21 L BUN 83 H Creatinine 3.0 H Glucose 135 H POC Glucose Lactic Acid Calcium Phosphorus Magnesium Direct Bilirubin Troponin T C-Reactive Protein Total Protein Albumin Triglycerides Cholesterol LDL Cholesterol Direct HDL Cholesterol Urine WBC (Auto) Urine Creatinine Urine Total Protein Vancomycin Trough Rheumatoid Factor Complement C4 Crossmatch 09/09/16 09/09/16 09/09/16 05:41 11:55 14:13 WBC RBC Hgb Hct MCV MCH MCHC RDW Plt Count Lymph % (Auto) [place] % (Auto) Lymph # [place] # Seg Neutrophils % Seg Neuts % (Manual) Lymphocytes % (Manual) Monocytes % (Manual) Eosinophils % (Manual) Basophils % (Manual) Nucleated RBC % Seg Neutrophils # Seg Neutrophils # Man Lymphocytes # (Manual) Monocytes # (Manual) Eosinophils # (Manual) Fibrinogen dRVVT Confirm Interp Factor V Activity POC ABG pH POC ABG pCO2 POC ABG pO2 Sodium Potassium Chloride Carbon Dioxide BUN Creatinine Glucose POC Glucose 155 H 186 H Lactic Acid Calcium Phosphorus Magnesium Direct Bilirubin Troponin T C-Reactive Protein Total Protein Albumin Triglycerides Cholesterol LDL Cholesterol Direct HDL Cholesterol Urine WBC (Auto) 25.0 H Urine Creatinine Urine Total Protein Vancomycin Trough Rheumatoid Factor Complement C4 Crossmatch 09/09/16 09/09/16 09/10/16 17:33 23:13 05:09 WBC RBC Hgb Hct MCV MCH MCHC RDW Plt Count Lymph % (Auto) [place] % (Auto) Lymph # [place] # Seg Neutrophils % Seg Neuts % (Manual) Lymphocytes % (Manual) Monocytes % (Manual) Eosinophils % (Manual) Basophils % (Manual) Nucleated RBC % Seg Neutrophils # Seg Neutrophils # Man Lymphocytes # (Manual) Monocytes # (Manual) Eosinophils # (Manual) Fibrinogen dRVVT Confirm Interp Factor V Activity POC ABG pH POC ABG pCO2 POC ABG pO2 74 L Sodium Potassium Chloride Carbon Dioxide BUN Creatinine Glucose POC Glucose 211 H 215 H Lactic Acid Calcium Phosphorus Magnesium Direct Bilirubin Troponin T C-Reactive Protein Total Protein Albumin Triglycerides Cholesterol LDL Cholesterol Direct HDL Cholesterol Urine WBC (Auto) Urine Creatinine Urine Total Protein Vancomycin Trough Rheumatoid Factor Complement C4 Crossmatch 09/10/16 09/10/16 09/10/16 05:17 05:17 11:31 WBC 15.8 H RBC 3.25 L Hgb 7.3 L Hct 22.9 L MCV 71 L MCH 23 L MCHC RDW 18.4 H Plt Count Lymph % (Auto) [place] % (Auto) Lymph # [place] # Seg Neutrophils % Seg Neuts % (Manual) 91.0 H Lymphocytes % (Manual) 4.0 L Monocytes % (Manual) Eosinophils % (Manual) Basophils % (Manual) Nucleated RBC % Seg Neutrophils # Seg Neutrophils # Man 14.4 H Lymphocytes # (Manual) 0.6 L Monocytes # (Manual) Eosinophils # (Manual) Fibrinogen dRVVT Confirm Interp Factor V Activity POC ABG pH POC ABG pCO2 POC ABG pO2 Sodium Potassium Chloride Carbon Dioxide 21 L BUN 93 H Creatinine 2.9 H Glucose 146 H POC Glucose 188 H Lactic Acid Calcium 8.1 L Phosphorus Magnesium Direct Bilirubin Troponin T C-Reactive Protein Total Protein Albumin Triglycerides Cholesterol LDL Cholesterol Direct HDL Cholesterol Urine WBC (Auto) Urine Creatinine Urine Total Protein Vancomycin Trough Rheumatoid Factor Complement C4 Crossmatch 09/10/16 09/10/16 09/10/16 13:17 17:20 23:32 WBC RBC Hgb Hct MCV MCH MCHC RDW Plt Count Lymph % (Auto) [place] % (Auto) Lymph # [place] # Seg Neutrophils % Seg Neuts % (Manual) Lymphocytes % (Manual) Monocytes % (Manual) Eosinophils % (Manual) Basophils % (Manual) Nucleated RBC % Seg Neutrophils # Seg Neutrophils # Man Lymphocytes # (Manual) Monocytes # (Manual) Eosinophils # (Manual) Fibrinogen dRVVT Confirm Interp Factor V Activity POC ABG pH POC ABG pCO2 POC ABG pO2 Sodium Potassium Chloride Carbon Dioxide BUN Creatinine Glucose POC Glucose 199 H 186 H Lactic Acid Calcium Phosphorus Magnesium Direct Bilirubin Troponin T C-Reactive Protein Total Protein Albumin Triglycerides Cholesterol LDL Cholesterol Direct HDL Cholesterol Urine WBC (Auto) Urine Creatinine Urine Total Protein Vancomycin Trough Rheumatoid Factor Complement C4 Crossmatch See Detail 09/11/16 09/11/16 09/11/16 05:10 05:10 05:17 WBC 28.4 H RBC Hgb 9.2 L Hct 29.3 L D MCV 73 L MCH 23 L MCHC RDW 18.9 H Plt Count 452 H Lymph % (Auto) [place] % (Auto) Lymph # [place] # Seg Neutrophils % Seg Neuts % (Manual) 89.5 H Lymphocytes % (Manual) 2.0 L Monocytes % (Manual) Eosinophils % (Manual) Basophils % (Manual) Nucleated RBC % Seg Neutrophils # Seg Neutrophils # Man 25.4 H Lymphocytes # (Manual) 0.6 L Monocytes # (Manual) 1.3 H Eosinophils # (Manual) Fibrinogen dRVVT Confirm Interp Factor V Activity POC ABG pH POC ABG pCO2 POC ABG pO2 Sodium 136 L Potassium Chloride Carbon Dioxide 18 L BUN 107 H Creatinine 2.6 H Glucose 187 H POC Glucose 230 H Lactic Acid Calcium 8.3 L Phosphorus Magnesium Direct Bilirubin Troponin T C-Reactive Protein Total Protein Albumin Triglycerides Cholesterol LDL Cholesterol Direct HDL Cholesterol Urine WBC (Auto) Urine Creatinine Urine Total Protein Vancomycin Trough Rheumatoid Factor Complement C4 Crossmatch 09/11/16 09/11/16 09/11/16 05:55 12:02 17:32 WBC RBC Hgb Hct MCV MCH MCHC RDW Plt Count Lymph % (Auto) [place] % (Auto) Lymph # [place] # Seg Neutrophils % Seg Neuts % (Manual) Lymphocytes % (Manual) Monocytes % (Manual) Eosinophils % (Manual) Basophils % (Manual) Nucleated RBC % Seg Neutrophils # Seg Neutrophils # Man Lymphocytes # (Manual) Monocytes # (Manual) Eosinophils # (Manual) Fibrinogen dRVVT Confirm Interp Factor V Activity POC ABG pH POC ABG pCO2 33.8 L POC ABG pO2 Sodium Potassium Chloride Carbon Dioxide BUN Creatinine Glucose POC Glucose 191 H 239 H Lactic Acid Calcium Phosphorus Magnesium Direct Bilirubin Troponin T C-Reactive Protein Total Protein Albumin Triglycerides Cholesterol LDL Cholesterol Direct HDL Cholesterol Urine WBC (Auto) Urine Creatinine Urine Total Protein Vancomycin Trough Rheumatoid Factor Complement C4 Crossmatch 09/11/16 09/12/16 09/12/16 23:52 05:09 05:32 WBC RBC Hgb Hct MCV MCH MCHC RDW Plt Count Lymph % (Auto) [place] % (Auto) Lymph # [place] # Seg Neutrophils % Seg Neuts % (Manual) Lymphocytes % (Manual) Monocytes % (Manual) Eosinophils % (Manual) Basophils % (Manual) Nucleated RBC % Seg Neutrophils # Seg Neutrophils # Man Lymphocytes # (Manual) Monocytes # (Manual) Eosinophils # (Manual) Fibrinogen dRVVT Confirm Interp Factor V Activity POC ABG pH POC ABG pCO2 34.6 L POC ABG pO2 Sodium Potassium Chloride Carbon Dioxide BUN Creatinine Glucose POC Glucose 265 H 184 H Lactic Acid Calcium Phosphorus Magnesium Direct Bilirubin Troponin T C-Reactive Protein Total Protein Albumin Triglycerides Cholesterol LDL Cholesterol Direct HDL Cholesterol Urine WBC (Auto) Urine Creatinine Urine Total Protein Vancomycin Trough Rheumatoid Factor Complement C4 Crossmatch 09/12/16 09/12/16 09/12/16 06:45 06:45 07:22 WBC 31.7 H RBC 3.54 L Hgb 8.3 L Hct 25.9 L MCV 73 L MCH 23 L MCHC RDW 18.9 H Plt Count Lymph % (Auto) [place] % (Auto) Lymph # [place] # Seg Neutrophils % Seg Neuts % (Manual) 88.5 H Lymphocytes % (Manual) 4.5 L Monocytes % (Manual) Eosinophils % (Manual) Basophils % (Manual) Nucleated RBC % Seg Neutrophils # Seg Neutrophils # Man 28.1 H Lymphocytes # (Manual) Monocytes # (Manual) 1.0 H Eosinophils # (Manual) Fibrinogen dRVVT Confirm Interp Factor V Activity POC ABG pH POC ABG pCO2 POC ABG pO2 Sodium Potassium Chloride Carbon Dioxide 20 L BUN 115 H Creatinine 2.7 H Glucose 165 H POC Glucose Lactic Acid Calcium 8.0 L Phosphorus Magnesium Direct Bilirubin Troponin T C-Reactive Protein Total Protein Albumin Triglycerides 217 H Cholesterol LDL Cholesterol Direct HDL Cholesterol Urine WBC (Auto) Urine Creatinine Urine Total Protein Vancomycin Trough Rheumatoid Factor Complement C4 Crossmatch 09/12/16 09/12/16 09/12/16 07:22 09:59 12:21 WBC RBC Hgb Hct MCV MCH MCHC RDW Plt Count Lymph % (Auto) [place] % (Auto) Lymph # [place] # Seg Neutrophils % Seg Neuts % (Manual) Lymphocytes % (Manual) Monocytes % (Manual) Eosinophils % (Manual) Basophils % (Manual) Nucleated RBC % Seg Neutrophils # Seg Neutrophils # Man Lymphocytes # (Manual) Monocytes # (Manual) Eosinophils # (Manual) Fibrinogen dRVVT Confirm Interp Positive H Factor V Activity POC ABG pH POC ABG pCO2 POC ABG pO2 Sodium Potassium Chloride Carbon Dioxide BUN Creatinine Glucose POC Glucose 224 H Lactic Acid Calcium Phosphorus Magnesium Direct Bilirubin Troponin T C-Reactive Protein 1.70 H Total Protein Albumin Triglycerides Cholesterol LDL Cholesterol Direct HDL Cholesterol Urine WBC (Auto) Urine Creatinine Urine Total Protein Vancomycin Trough Rheumatoid Factor Complement C4 Crossmatch 09/12/16 09/12/16 09/13/16 16:51 23:28 04:00 WBC 45.0 H* RBC Hgb 9.4 L Hct MCV 75 L MCH 23 L MCHC RDW 19.0 H Plt Count 470 H Lymph % (Auto) [place] % (Auto) Lymph # [place] # Seg Neutrophils % Seg Neuts % (Manual) 89.0 H Lymphocytes % (Manual) 5.0 L Monocytes % (Manual) Eosinophils % (Manual) Basophils % (Manual) Nucleated RBC % Seg Neutrophils # Seg Neutrophils # Man 40.1 H Lymphocytes # (Manual) Monocytes # (Manual) Eosinophils # (Manual) Fibrinogen dRVVT Confirm Interp Factor V Activity POC ABG pH POC ABG pCO2 POC ABG pO2 Sodium Potassium Chloride Carbon Dioxide BUN Creatinine Glucose POC Glucose 169 H 150 H Lactic Acid Calcium Phosphorus Magnesium Direct Bilirubin Troponin T C-Reactive Protein Total Protein Albumin Triglycerides Cholesterol LDL Cholesterol Direct HDL Cholesterol Urine WBC (Auto) Urine Creatinine Urine Total Protein Vancomycin Trough Rheumatoid Factor Complement C4 Crossmatch 09/13/16 09/13/16 09/13/16 04:00 11:26 17:31 WBC RBC Hgb Hct MCV MCH MCHC RDW Plt Count Lymph % (Auto) [place] % (Auto) Lymph # [place] # Seg Neutrophils % Seg Neuts % (Manual) Lymphocytes % (Manual) Monocytes % (Manual) Eosinophils % (Manual) Basophils % (Manual) Nucleated RBC % Seg Neutrophils # Seg Neutrophils # Man Lymphocytes # (Manual) Monocytes # (Manual) Eosinophils # (Manual) Fibrinogen dRVVT Confirm Interp Factor V Activity POC ABG pH POC ABG pCO2 POC ABG pO2 Sodium Potassium Chloride Carbon Dioxide 20 L BUN 116 H Creatinine 3.0 H Glucose 172 H POC Glucose 140 H 183 H Lactic Acid Calcium Phosphorus Magnesium Direct Bilirubin Troponin T C-Reactive Protein Total Protein 6.2 L Albumin 2.9 L Triglycerides Cholesterol LDL Cholesterol Direct HDL Cholesterol Urine WBC (Auto) Urine Creatinine Urine Total Protein Vancomycin Trough Rheumatoid Factor Complement C4 Crossmatch 09/13/16 09/14/16 09/14/16 23:23 04:06 04:07 WBC 29.4 H RBC Hgb 8.9 L Hct 27.3 L MCV 75 L MCH 24 L MCHC RDW 19.1 H Plt Count Lymph % (Auto) [place] % (Auto) Lymph # [place] # Seg Neutrophils % Seg Neuts % (Manual) 84.0 H Lymphocytes % (Manual) 6.0 L Monocytes % (Manual) 9.0 H Eosinophils % (Manual) Basophils % (Manual) Nucleated RBC % Seg Neutrophils # Seg Neutrophils # Man 24.7 H Lymphocytes # (Manual) Monocytes # (Manual) 2.6 H Eosinophils # (Manual) Fibrinogen dRVVT Confirm Interp Factor V Activity POC ABG pH 7.342 L POC ABG pCO2 POC ABG pO2 116 H Sodium Potassium Chloride Carbon Dioxide BUN Creatinine Glucose POC Glucose 154 H Lactic Acid Calcium Phosphorus Magnesium Direct Bilirubin Troponin T C-Reactive Protein Total Protein Albumin Triglycerides Cholesterol LDL Cholesterol Direct HDL Cholesterol Urine WBC (Auto) Urine Creatinine Urine Total Protein Vancomycin Trough Rheumatoid Factor Complement C4 Crossmatch 09/14/16 09/14/16 09/14/16 04:07 05:29 12:19 WBC RBC Hgb Hct MCV MCH MCHC RDW Plt Count Lymph % (Auto) [place] % (Auto) Lymph # [place] # Seg Neutrophils % Seg Neuts % (Manual) Lymphocytes % (Manual) Monocytes % (Manual) Eosinophils % (Manual) Basophils % (Manual) Nucleated RBC % Seg Neutrophils # Seg Neutrophils # Man Lymphocytes # (Manual) Monocytes # (Manual) Eosinophils # (Manual) Fibrinogen dRVVT Confirm Interp Factor V Activity POC ABG pH POC ABG pCO2 POC ABG pO2 Sodium 136 L Potassium Chloride Carbon Dioxide 18 L BUN 121 H Creatinine 2.8 H Glucose 214 H POC Glucose 239 H 181 H Lactic Acid Calcium Phosphorus Magnesium Direct Bilirubin Troponin T C-Reactive Protein Total Protein Albumin Triglycerides Cholesterol LDL Cholesterol Direct HDL Cholesterol Urine WBC (Auto) Urine Creatinine Urine Total Protein Vancomycin Trough Rheumatoid Factor Complement C4 Crossmatch 09/14/16 09/14/16 09/15/16 18:12 23:37 05:00 WBC 26.1 H RBC 3.05 L Hgb 7.2 L Hct 22.9 L MCV 75 L MCH 24 L MCHC RDW 19.0 H Plt Count Lymph % (Auto) [place] % (Auto) Lymph # [place] # Seg Neutrophils % Seg Neuts % (Manual) Lymphocytes % (Manual) Monocytes % (Manual) Eosinophils % (Manual) Basophils % (Manual) Nucleated RBC % Seg Neutrophils # Seg Neutrophils # Man Lymphocytes # (Manual) Monocytes # (Manual) Eosinophils # (Manual) Fibrinogen dRVVT Confirm Interp Factor V Activity POC ABG pH POC ABG pCO2 POC ABG pO2 Sodium Potassium Chloride Carbon Dioxide BUN Creatinine Glucose POC Glucose 266 H 154 H Lactic Acid Calcium Phosphorus Magnesium Direct Bilirubin Troponin T C-Reactive Protein Total Protein Albumin Triglycerides Cholesterol LDL Cholesterol Direct HDL Cholesterol Urine WBC (Auto) Urine Creatinine Urine Total Protein Vancomycin Trough Rheumatoid Factor Complement C4 Crossmatch 09/15/16 09/15/16 09/15/16 05:00 05:17 12:45 WBC RBC Hgb Hct MCV MCH MCHC RDW Plt Count Lymph % (Auto) [place] % (Auto) Lymph # [place] # Seg Neutrophils % Seg Neuts % (Manual) Lymphocytes % (Manual) Monocytes % (Manual) Eosinophils % (Manual) Basophils % (Manual) Nucleated RBC % Seg Neutrophils # Seg Neutrophils # Man Lymphocytes # (Manual) Monocytes # (Manual) Eosinophils # (Manual) Fibrinogen dRVVT Confirm Interp Factor V Activity POC ABG pH POC ABG pCO2 POC ABG pO2 Sodium Potassium 5.2 H Chloride Carbon Dioxide 18 L BUN 139 H Creatinine 3.7 H Glucose 227 H POC Glucose 226 H 244 H Lactic Acid Calcium 8.3 L Phosphorus Magnesium Direct Bilirubin Troponin T C-Reactive Protein Total Protein Albumin Triglycerides Cholesterol LDL Cholesterol Direct HDL Cholesterol Urine WBC (Auto) Urine Creatinine Urine Total Protein Vancomycin Trough Rheumatoid Factor Complement C4 Crossmatch 09/15/16 09/15/16 09/15/16 14:32 17:33 23:35 WBC RBC Hgb Hct MCV MCH MCHC RDW Plt Count Lymph % (Auto) [place] % (Auto) Lymph # [place] # Seg Neutrophils % Seg Neuts % (Manual) Lymphocytes % (Manual) Monocytes % (Manual) Eosinophils % (Manual) Basophils % (Manual) Nucleated RBC % Seg Neutrophils # Seg Neutrophils # Man Lymphocytes # (Manual) Monocytes # (Manual) Eosinophils # (Manual) Fibrinogen dRVVT Confirm Interp Factor V Activity POC ABG pH POC ABG pCO2 27.7 L POC ABG pO2 120 H Sodium Potassium Chloride Carbon Dioxide BUN Creatinine Glucose POC Glucose 232 H 167 H Lactic Acid Calcium Phosphorus Magnesium Direct Bilirubin Troponin T C-Reactive Protein Total Protein Albumin Triglycerides Cholesterol LDL Cholesterol Direct HDL Cholesterol Urine WBC (Auto) Urine Creatinine Urine Total Protein Vancomycin Trough Rheumatoid Factor Complement C4 Crossmatch 09/16/16 09/16/16 09/16/16 03:58 10:27 10:27 WBC 19.0 H RBC 2.77 L Hgb 6.5 L Hct 20.9 L MCV 76 L MCH 23 L MCHC RDW 19.3 H Plt Count Lymph % (Auto) 11.0 L [place] % (Auto) Lymph # [place] # 1.1 H Seg Neutrophils % 82.5 H Seg Neuts % (Manual) Lymphocytes % (Manual) Monocytes % (Manual) Eosinophils % (Manual) Basophils % (Manual) Nucleated RBC % Seg Neutrophils # 15.7 H Seg Neutrophils # Man Lymphocytes # (Manual) Monocytes # (Manual) Eosinophils # (Manual) Fibrinogen dRVVT Confirm Interp Factor V Activity POC ABG pH POC ABG pCO2 POC ABG pO2 Sodium Potassium Chloride 109.3 H Carbon Dioxide 18 L BUN 139 H Creatinine 4.1 H Glucose 144 H POC Glucose 146 H Lactic Acid Calcium 8.1 L Phosphorus Magnesium Direct Bilirubin Troponin T C-Reactive Protein Total Protein Albumin Triglycerides Cholesterol LDL Cholesterol Direct HDL Cholesterol Urine WBC (Auto) Urine Creatinine Urine Total Protein Vancomycin Trough Rheumatoid Factor Complement C4 Crossmatch 09/16/16 09/16/16 09/16/16 12:04 12:10 13:55 WBC RBC Hgb Hct MCV MCH MCHC RDW Plt Count Lymph % (Auto) [place] % (Auto) Lymph # [place] # Seg Neutrophils % Seg Neuts % (Manual) Lymphocytes % (Manual) Monocytes % (Manual) Eosinophils % (Manual) Basophils % (Manual) Nucleated RBC % Seg Neutrophils # Seg Neutrophils # Man Lymphocytes # (Manual) Monocytes # (Manual) Eosinophils # (Manual) Fibrinogen dRVVT Confirm Interp Factor V Activity POC ABG pH POC ABG pCO2 32.9 L POC ABG pO2 Sodium Potassium Chloride Carbon Dioxide BUN Creatinine Glucose POC Glucose 185 H Lactic Acid Calcium Phosphorus Magnesium Direct Bilirubin Troponin T C-Reactive Protein Total Protein Albumin Triglycerides Cholesterol LDL Cholesterol Direct HDL Cholesterol Urine WBC (Auto) Urine Creatinine Urine Total Protein Vancomycin Trough Rheumatoid Factor Complement C4 Crossmatch See Detail 09/16/16 09/16/16 09/16/16 17:55 19:19 23:48 WBC RBC Hgb Hct MCV MCH MCHC RDW Plt Count Lymph % (Auto) [place] % (Auto) Lymph # [place] # Seg Neutrophils % Seg Neuts % (Manual) Lymphocytes % (Manual) Monocytes % (Manual) Eosinophils % (Manual) Basophils % (Manual) Nucleated RBC % Seg Neutrophils # Seg Neutrophils # Man Lymphocytes # (Manual) Monocytes # (Manual) Eosinophils # (Manual) Fibrinogen dRVVT Confirm Interp Factor V Activity POC ABG pH POC ABG pCO2 POC ABG pO2 Sodium Potassium Chloride Carbon Dioxide BUN Creatinine Glucose POC Glucose 222 H 107 H Lactic Acid Calcium Phosphorus Magnesium Direct Bilirubin Troponin T C-Reactive Protein Total Protein Albumin Triglycerides Cholesterol LDL Cholesterol Direct HDL Cholesterol Urine WBC (Auto) Urine Creatinine 47.4 H Urine Total Protein 16 H Vancomycin Trough Rheumatoid Factor Complement C4 Crossmatch 09/17/16 09/17/16 09/17/16 03:45 03:45 04:55 WBC 19.6 H RBC 3.41 L Hgb 8.5 L Hct 26.7 L MCV 78 L MCH 25 L MCHC RDW 19.9 H Plt Count Lymph % (Auto) 9.3 L [place] % (Auto) Lymph # [place] # 1.2 H Seg Neutrophils % 83.9 H Seg Neuts % (Manual) Lymphocytes % (Manual) Monocytes % (Manual) Eosinophils % (Manual) Basophils % (Manual) Nucleated RBC % Seg Neutrophils # 16.4 H Seg Neutrophils # Man Lymphocytes # (Manual) Monocytes # (Manual) Eosinophils # (Manual) Fibrinogen dRVVT Confirm Interp Factor V Activity POC ABG pH POC ABG pCO2 POC ABG pO2 Sodium 146 H Potassium 5.1 H Chloride 110.9 H Carbon Dioxide 16 L BUN 146 H Creatinine 4.0 H Glucose 108 H POC Glucose 133 H Lactic Acid Calcium Phosphorus Magnesium 3.00 H Direct Bilirubin Troponin T C-Reactive Protein Total Protein Albumin Triglycerides Cholesterol LDL Cholesterol Direct HDL Cholesterol Urine WBC (Auto) Urine Creatinine Urine Total Protein Vancomycin Trough Rheumatoid Factor Complement C4 Crossmatch 09/17/16 09/17/16 09/17/16 11:15 17:33 23:47 WBC RBC Hgb Hct MCV MCH MCHC RDW Plt Count Lymph % (Auto) [place] % (Auto) Lymph # [place] # Seg Neutrophils % Seg Neuts % (Manual) Lymphocytes % (Manual) Monocytes % (Manual) Eosinophils % (Manual) Basophils % (Manual) Nucleated RBC % Seg Neutrophils # Seg Neutrophils # Man Lymphocytes # (Manual) Monocytes # (Manual) Eosinophils # (Manual) Fibrinogen dRVVT Confirm Interp Factor V Activity POC ABG pH POC ABG pCO2 POC ABG pO2 Sodium Potassium Chloride Carbon Dioxide BUN Creatinine Glucose POC Glucose 176 H 246 H 148 H Lactic Acid Calcium Phosphorus Magnesium Direct Bilirubin Troponin T C-Reactive Protein Total Protein Albumin Triglycerides Cholesterol LDL Cholesterol Direct HDL Cholesterol Urine WBC (Auto) Urine Creatinine Urine Total Protein Vancomycin Trough Rheumatoid Factor Complement C4 Crossmatch 09/18/16 09/18/16 09/18/16 05:33 08:31 08:31 WBC 18.0 H RBC 3.17 L Hgb 9.0 L Hct 25.7 L MCV MCH MCHC 35 H RDW 20.4 H Plt Count Lymph % (Auto) [place] % (Auto) Lymph # [place] # Seg Neutrophils % Seg Neuts % (Manual) Lymphocytes % (Manual) Monocytes % (Manual) Eosinophils % (Manual) Basophils % (Manual) Nucleated RBC % Seg Neutrophils # Seg Neutrophils # Man Lymphocytes # (Manual) Monocytes # (Manual) Eosinophils # (Manual) Fibrinogen dRVVT Confirm Interp Factor V Activity POC ABG pH POC ABG pCO2 POC ABG pO2 Sodium Potassium Chloride Carbon Dioxide 15 L BUN 124 H Creatinine 3.8 H Glucose POC Glucose 120 H Lactic Acid Calcium 8.1 L Phosphorus Magnesium Direct Bilirubin Troponin T C-Reactive Protein Total Protein Albumin Triglycerides Cholesterol LDL Cholesterol Direct HDL Cholesterol Urine WBC (Auto) Urine Creatinine Urine Total Protein Vancomycin Trough Rheumatoid Factor Complement C4 Crossmatch 09/18/16 09/18/16 09/18/16 12:03 15:34 17:50 WBC RBC Hgb Hct MCV MCH MCHC RDW Plt Count Lymph % (Auto) [place] % (Auto) Lymph # [place] # Seg Neutrophils % Seg Neuts % (Manual) Lymphocytes % (Manual) Monocytes % (Manual) Eosinophils % (Manual) Basophils % (Manual) Nucleated RBC % Seg Neutrophils # Seg Neutrophils # Man Lymphocytes # (Manual) Monocytes # (Manual) Eosinophils # (Manual) Fibrinogen dRVVT Confirm Interp Factor V Activity POC ABG pH POC ABG pCO2 25.7 L POC ABG pO2 66 L Sodium Potassium Chloride Carbon Dioxide BUN Creatinine Glucose POC Glucose 156 H 220 H Lactic Acid Calcium Phosphorus Magnesium Direct Bilirubin Troponin T C-Reactive Protein Total Protein Albumin Triglycerides Cholesterol LDL Cholesterol Direct HDL Cholesterol Urine WBC (Auto) Urine Creatinine Urine Total Protein Vancomycin Trough Rheumatoid Factor Complement C4 Crossmatch 09/19/16 09/19/16 09/19/16 06:21 09:50 09:50 WBC 17.1 H RBC 3.49 L Hgb 9.0 L Hct 28.1 L MCV MCH 26 L MCHC RDW 20.8 H Plt Count Lymph % (Auto) 11.5 L [place] % (Auto) 7.5 H Lymph # [place] # 1.3 H Seg Neutrophils % 79.8 H Seg Neuts % (Manual) Lymphocytes % (Manual) Monocytes % (Manual) Eosinophils % (Manual) Basophils % (Manual) Nucleated RBC % Seg Neutrophils # 13.7 H Seg Neutrophils # Man Lymphocytes # (Manual) Monocytes # (Manual) Eosinophils # (Manual) Fibrinogen dRVVT Confirm Interp Factor V Activity POC ABG pH POC ABG pCO2 POC ABG pO2 Sodium Potassium Chloride 108.6 H Carbon Dioxide 15 L BUN 125 H Creatinine 4.1 H Glucose 124 H POC Glucose 119 H Lactic Acid Calcium Phosphorus Magnesium Direct Bilirubin Troponin T C-Reactive Protein Total Protein Albumin Triglycerides Cholesterol LDL Cholesterol Direct HDL Cholesterol Urine WBC (Auto) Urine Creatinine Urine Total Protein Vancomycin Trough Rheumatoid Factor Complement C4 Crossmatch 09/19/16 09/19/16 09/19/16 11:25 17:53 23:36 WBC RBC Hgb Hct MCV MCH MCHC RDW Plt Count Lymph % (Auto) [place] % (Auto) Lymph # [place] # Seg Neutrophils % Seg Neuts % (Manual) Lymphocytes % (Manual) Monocytes % (Manual) Eosinophils % (Manual) Basophils % (Manual) Nucleated RBC % Seg Neutrophils # Seg Neutrophils # Man Lymphocytes # (Manual) Monocytes # (Manual) Eosinophils # (Manual) Fibrinogen dRVVT Confirm Interp Factor V Activity POC ABG pH POC ABG pCO2 POC ABG pO2 Sodium Potassium Chloride Carbon Dioxide BUN Creatinine Glucose POC Glucose 160 H 245 H 121 H Lactic Acid Calcium Phosphorus Magnesium Direct Bilirubin Troponin T C-Reactive Protein Total Protein Albumin Triglycerides Cholesterol LDL Cholesterol Direct HDL Cholesterol Urine WBC (Auto) Urine Creatinine Urine Total Protein Vancomycin Trough Rheumatoid Factor Complement C4 Crossmatch 09/20/16 09/20/16 09/20/16 04:10 04:10 04:10 WBC 17.0 H RBC 3.21 L Hgb 8.2 L Hct 25.5 L MCV MCH 26 L MCHC RDW 20.9 H Plt Count Lymph % (Auto) [place] % (Auto) Lymph # [place] # Seg Neutrophils % Seg Neuts % (Manual) Lymphocytes % (Manual) Monocytes % (Manual) Eosinophils % (Manual) Basophils % (Manual) Nucleated RBC % Seg Neutrophils # Seg Neutrophils # Man Lymphocytes # (Manual) Monocytes # (Manual) Eosinophils # (Manual) Fibrinogen dRVVT Confirm Interp Factor V Activity POC ABG pH POC ABG pCO2 POC ABG pO2 Sodium Potassium Chloride 111.0 H Carbon Dioxide 16 L BUN 129 H Creatinine 3.7 H Glucose 115 H POC Glucose Lactic Acid Calcium 8.2 L Phosphorus Magnesium Direct Bilirubin Troponin T C-Reactive Protein Total Protein Albumin Triglycerides 243 H Cholesterol LDL Cholesterol Direct HDL Cholesterol Urine WBC (Auto) Urine Creatinine Urine Total Protein Vancomycin Trough Rheumatoid Factor Complement C4 Crossmatch 09/20/16 09/20/16 09/20/16 05:40 11:52 16:50 WBC RBC Hgb Hct MCV MCH MCHC RDW Plt Count Lymph % (Auto) [place] % (Auto) Lymph # [place] # Seg Neutrophils % Seg Neuts % (Manual) Lymphocytes % (Manual) Monocytes % (Manual) Eosinophils % (Manual) Basophils % (Manual) Nucleated RBC % Seg Neutrophils # Seg Neutrophils # Man Lymphocytes # (Manual) Monocytes # (Manual) Eosinophils # (Manual) Fibrinogen dRVVT Confirm Interp Factor V Activity POC ABG pH POC ABG pCO2 POC ABG pO2 Sodium Potassium Chloride Carbon Dioxide BUN Creatinine Glucose POC Glucose 131 H 183 H 236 H Lactic Acid Calcium Phosphorus Magnesium Direct Bilirubin Troponin T C-Reactive Protein Total Protein Albumin Triglycerides Cholesterol LDL Cholesterol Direct HDL Cholesterol Urine WBC (Auto) Urine Creatinine Urine Total Protein Vancomycin Trough Rheumatoid Factor Complement C4 Crossmatch 09/20/16 09/21/16 09/21/16 23:51 03:30 04:44 WBC RBC Hgb Hct MCV MCH MCHC RDW Plt Count Lymph % (Auto) [place] % (Auto) Lymph # [place] # Seg Neutrophils % Seg Neuts % (Manual) Lymphocytes % (Manual) Monocytes % (Manual) Eosinophils % (Manual) Basophils % (Manual) Nucleated RBC % Seg Neutrophils # Seg Neutrophils # Man Lymphocytes # (Manual) Monocytes # (Manual) Eosinophils # (Manual) Fibrinogen dRVVT Confirm Interp Factor V Activity POC ABG pH POC ABG pCO2 POC ABG pO2 Sodium Potassium Chloride Carbon Dioxide BUN Creatinine Glucose POC Glucose 114 H 141 H Lactic Acid Calcium Phosphorus Magnesium 2.70 H Direct Bilirubin Troponin T C-Reactive Protein Total Protein Albumin Triglycerides Cholesterol LDL Cholesterol Direct HDL Cholesterol Urine WBC (Auto) Urine Creatinine Urine Total Protein Vancomycin Trough Rheumatoid Factor Complement C4 Crossmatch 09/21/16 09/21/16 09/21/16 07:45 07:45 10:01 WBC 13.8 H RBC 2.94 L Hgb 7.5 L Hct 23.5 L MCV MCH 26 L MCHC RDW 21.2 H Plt Count Lymph % (Auto) 6.9 L [place] % (Auto) 9.4 H Lymph # 0.9 L [place] # 1.3 H Seg Neutrophils % 83.2 H Seg Neuts % (Manual) Lymphocytes % (Manual) Monocytes % (Manual) Eosinophils % (Manual) Basophils % (Manual) Nucleated RBC % Seg Neutrophils # 11.5 H Seg Neutrophils # Man Lymphocytes # (Manual) Monocytes # (Manual) Eosinophils # (Manual) Fibrinogen dRVVT Confirm Interp Factor V Activity POC ABG pH 7.308 L POC ABG pCO2 31.9 L POC ABG pO2 148 H Sodium 147 H Potassium Chloride 114.2 H Carbon Dioxide 15 L BUN 120 H Creatinine 3.9 H Glucose 156 H POC Glucose Lactic Acid Calcium 8.2 L Phosphorus Magnesium Direct Bilirubin Troponin T C-Reactive Protein Total Protein Albumin Triglycerides Cholesterol LDL Cholesterol Direct HDL Cholesterol Urine WBC (Auto) Urine Creatinine Urine Total Protein Vancomycin Trough Rheumatoid Factor Complement C4 Crossmatch 09/21/16 09/21/16 09/21/16 12:00 12:03 13:00 WBC RBC Hgb Hct MCV MCH MCHC RDW Plt Count Lymph % (Auto) [place] % (Auto) Lymph # [place] # Seg Neutrophils % Seg Neuts % (Manual) Lymphocytes % (Manual) Monocytes % (Manual) Eosinophils % (Manual) Basophils % (Manual) Nucleated RBC % Seg Neutrophils # Seg Neutrophils # Man Lymphocytes # (Manual) Monocytes # (Manual) Eosinophils # (Manual) Fibrinogen dRVVT Confirm Interp Factor V Activity POC ABG pH POC ABG pCO2 POC ABG pO2 Sodium Potassium Chloride Carbon Dioxide BUN Creatinine Glucose POC Glucose 163 H Lactic Acid Calcium Phosphorus Magnesium Direct Bilirubin Troponin T C-Reactive Protein Total Protein Albumin Triglycerides Cholesterol LDL Cholesterol Direct HDL Cholesterol Urine WBC (Auto) Urine Creatinine 54.8 H Urine Total Protein Vancomycin Trough 2.3 L Rheumatoid Factor Complement C4 Crossmatch 09/21/16 09/21/16 09/22/16 16:51 23:17 06:27 WBC RBC Hgb Hct MCV MCH MCHC RDW Plt Count Lymph % (Auto) [place] % (Auto) Lymph # [place] # Seg Neutrophils % Seg Neuts % (Manual) Lymphocytes % (Manual) Monocytes % (Manual) Eosinophils % (Manual) Basophils % (Manual) Nucleated RBC % Seg Neutrophils # Seg Neutrophils # Man Lymphocytes # (Manual) Monocytes # (Manual) Eosinophils # (Manual) Fibrinogen dRVVT Confirm Interp Factor V Activity POC ABG pH POC ABG pCO2 POC ABG pO2 Sodium Potassium Chloride Carbon Dioxide BUN Creatinine Glucose POC Glucose 206 H 114 H 115 H Lactic Acid Calcium Phosphorus Magnesium Direct Bilirubin Troponin T C-Reactive Protein Total Protein Albumin Triglycerides Cholesterol LDL Cholesterol Direct HDL Cholesterol Urine WBC (Auto) Urine Creatinine Urine Total Protein Vancomycin Trough Rheumatoid Factor Complement C4 Crossmatch 09/22/16 09/22/16 09/22/16 07:50 07:50 12:00 WBC 17.8 H RBC 3.04 L Hgb 8.0 L Hct 24.7 L MCV MCH 26 L MCHC RDW 21.6 H Plt Count Lymph % (Auto) [place] % (Auto) Lymph # [place] # Seg Neutrophils % Seg Neuts % (Manual) Lymphocytes % (Manual) Monocytes % (Manual) Eosinophils % (Manual) Basophils % (Manual) Nucleated RBC % Seg Neutrophils # Seg Neutrophils # Man Lymphocytes # (Manual) Monocytes # (Manual) Eosinophils # (Manual) Fibrinogen dRVVT Confirm Interp Factor V Activity POC ABG pH POC ABG pCO2 POC ABG pO2 Sodium 150 H Potassium Chloride 118.2 H Carbon Dioxide 14 L BUN 111 H Creatinine 3.7 H Glucose 157 H POC Glucose 183 H Lactic Acid Calcium Phosphorus Magnesium Direct Bilirubin Troponin T C-Reactive Protein Total Protein Albumin Triglycerides Cholesterol LDL Cholesterol Direct HDL Cholesterol Urine WBC (Auto) Urine Creatinine Urine Total Protein Vancomycin Trough Rheumatoid Factor Complement C4 Crossmatch 09/22/16 09/22/16 09/23/16 17:29 23:10 05:00 WBC 19.2 H RBC 3.13 L Hgb 8.0 L Hct 25.2 L MCV MCH 26 L MCHC RDW 22.1 H Plt Count Lymph % (Auto) [place] % (Auto) Lymph # [place] # Seg Neutrophils % Seg Neuts % (Manual) 92.0 H Lymphocytes % (Manual) 3.0 L Monocytes % (Manual) Eosinophils % (Manual) Basophils % (Manual) Nucleated RBC % Seg Neutrophils # Seg Neutrophils # Man 17.7 H Lymphocytes # (Manual) 0.6 L Monocytes # (Manual) Eosinophils # (Manual) Fibrinogen dRVVT Confirm Interp Factor V Activity POC ABG pH POC ABG pCO2 POC ABG pO2 Sodium Potassium Chloride Carbon Dioxide BUN Creatinine Glucose POC Glucose 197 H 169 H Lactic Acid Calcium Phosphorus Magnesium Direct Bilirubin Troponin T C-Reactive Protein Total Protein Albumin Triglycerides Cholesterol LDL Cholesterol Direct HDL Cholesterol Urine WBC (Auto) Urine Creatinine Urine Total Protein Vancomycin Trough Rheumatoid Factor Complement C4 Crossmatch 09/23/16 09/23/16 09/23/16 05:00 05:00 05:10 WBC RBC Hgb Hct MCV MCH MCHC RDW Plt Count Lymph % (Auto) [place] % (Auto) Lymph # [place] # Seg Neutrophils % Seg Neuts % (Manual) Lymphocytes % (Manual) Monocytes % (Manual) Eosinophils % (Manual) Basophils % (Manual) Nucleated RBC % Seg Neutrophils # Seg Neutrophils # Man Lymphocytes # (Manual) Monocytes # (Manual) Eosinophils # (Manual) Fibrinogen dRVVT Confirm Interp Factor V Activity POC ABG pH POC ABG pCO2 POC ABG pO2 Sodium 147 H Potassium 3.2 L Chloride 115.7 H Carbon Dioxide 13 L BUN 111 H Creatinine 3.8 H Glucose 194 H POC Glucose 188 H Lactic Acid Calcium 7.3 L D Phosphorus Magnesium Direct Bilirubin Troponin T C-Reactive Protein 3.20 H Total Protein Albumin Triglycerides Cholesterol LDL Cholesterol Direct HDL Cholesterol Urine WBC (Auto) Urine Creatinine Urine Total Protein Vancomycin Trough Rheumatoid Factor Complement C4 Crossmatch 09/23/16 09/23/16 09/23/16 11:37 12:29 18:01 WBC RBC Hgb Hct MCV MCH MCHC RDW Plt Count Lymph % (Auto) [place] % (Auto) Lymph # [place] # Seg Neutrophils % Seg Neuts % (Manual) Lymphocytes % (Manual) Monocytes % (Manual) Eosinophils % (Manual) Basophils % (Manual) Nucleated RBC % Seg Neutrophils # Seg Neutrophils # Man Lymphocytes # (Manual) Monocytes # (Manual) Eosinophils # (Manual) Fibrinogen dRVVT Confirm Interp Factor V Activity POC ABG pH POC ABG pCO2 18.9 L POC ABG pO2 143 H Sodium Potassium Chloride Carbon Dioxide BUN Creatinine Glucose POC Glucose 153 H 108 H Lactic Acid Calcium Phosphorus Magnesium Direct Bilirubin Troponin T C-Reactive Protein Total Protein Albumin Triglycerides Cholesterol LDL Cholesterol Direct HDL Cholesterol Urine WBC (Auto) Urine Creatinine Urine Total Protein Vancomycin Trough Rheumatoid Factor Complement C4 Crossmatch 09/23/16 09/23/16 09/24/16 21:19 23:43 05:16 WBC RBC Hgb Hct MCV MCH MCHC RDW Plt Count Lymph % (Auto) [place] % (Auto) Lymph # [place] # Seg Neutrophils % Seg Neuts % (Manual) Lymphocytes % (Manual) Monocytes % (Manual) Eosinophils % (Manual) Basophils % (Manual) Nucleated RBC % Seg Neutrophils # Seg Neutrophils # Man Lymphocytes # (Manual) Monocytes # (Manual) Eosinophils # (Manual) Fibrinogen dRVVT Confirm Interp Factor V Activity POC ABG pH POC ABG pCO2 17.3 L POC ABG pO2 112 H Sodium Potassium Chloride Carbon Dioxide BUN Creatinine Glucose POC Glucose 143 H 164 H Lactic Acid Calcium Phosphorus Magnesium Direct Bilirubin Troponin T C-Reactive Protein Total Protein Albumin Triglycerides Cholesterol LDL Cholesterol Direct HDL Cholesterol Urine WBC (Auto) Urine Creatinine Urine Total Protein Vancomycin Trough Rheumatoid Factor Complement C4 Crossmatch 09/24/16 09/24/16 09/24/16 05:21 11:58 17:06 WBC RBC Hgb Hct MCV MCH MCHC RDW Plt Count Lymph % (Auto) [place] % (Auto) Lymph # [place] # Seg Neutrophils % Seg Neuts % (Manual) Lymphocytes % (Manual) Monocytes % (Manual) Eosinophils % (Manual) Basophils % (Manual) Nucleated RBC % Seg Neutrophils # Seg Neutrophils # Man Lymphocytes # (Manual) Monocytes # (Manual) Eosinophils # (Manual) Fibrinogen dRVVT Confirm Interp Factor V Activity POC ABG pH POC ABG pCO2 POC ABG pO2 Sodium Potassium Chloride Carbon Dioxide 10 L BUN 103 H Creatinine 4.3 H Glucose 163 H POC Glucose 173 H 167 H Lactic Acid Calcium 6.5 L Phosphorus Magnesium Direct Bilirubin Troponin T C-Reactive Protein Total Protein Albumin Triglycerides Cholesterol LDL Cholesterol Direct HDL Cholesterol Urine WBC (Auto) Urine Creatinine Urine Total Protein Vancomycin Trough Rheumatoid Factor Complement C4 Crossmatch 09/24/16 09/24/16 09/24/16 20:15 21:02 23:48 WBC RBC Hgb Hct MCV MCH MCHC RDW Plt Count Lymph % (Auto) [place] % (Auto) Lymph # [place] # Seg Neutrophils % Seg Neuts % (Manual) Lymphocytes % (Manual) Monocytes % (Manual) Eosinophils % (Manual) Basophils % (Manual) Nucleated RBC % Seg Neutrophils # Seg Neutrophils # Man Lymphocytes # (Manual) Monocytes # (Manual) Eosinophils # (Manual) Fibrinogen dRVVT Confirm Interp Factor V Activity POC ABG pH 7.288 L POC ABG pCO2 30.2 L 21.5 L POC ABG pO2 32 L 39 L Sodium Potassium Chloride Carbon Dioxide BUN Creatinine Glucose POC Glucose 109 H Lactic Acid Calcium Phosphorus Magnesium Direct Bilirubin Troponin T C-Reactive Protein Total Protein Albumin Triglycerides Cholesterol LDL Cholesterol Direct HDL Cholesterol Urine WBC (Auto) Urine Creatinine Urine Total Protein Vancomycin Trough Rheumatoid Factor Complement C4 Crossmatch 09/25/16 09/25/16 09/25/16 04:20 04:20 04:20 WBC RBC 2.58 L Hgb 7.0 L Hct 21.0 L MCV MCH 27 L MCHC RDW 23.8 H Plt Count Lymph % (Auto) [place] % (Auto) Lymph # [place] # Seg Neutrophils % Seg Neuts % (Manual) Lymphocytes % (Manual) 12.0 L Monocytes % (Manual) Eosinophils % (Manual) 7.0 H Basophils % (Manual) 2.0 H Nucleated RBC % Seg Neutrophils # Seg Neutrophils # Man Lymphocytes # (Manual) 0.9 L Monocytes # (Manual) Eosinophils # (Manual) 0.5 H Fibrinogen dRVVT Confirm Interp Factor V Activity POC ABG pH POC ABG pCO2 POC ABG pO2 Sodium Potassium Chloride Carbon Dioxide 15 L BUN 72 H Creatinine 3.8 H Glucose POC Glucose Lactic Acid Calcium 6.0 L Phosphorus 4.60 H Magnesium 1.60 L Direct Bilirubin Troponin T C-Reactive Protein Total Protein Albumin Triglycerides Cholesterol LDL Cholesterol Direct HDL Cholesterol Urine WBC (Auto) Urine Creatinine Urine Total Protein Vancomycin Trough Rheumatoid Factor Complement C4 Crossmatch 09/25/16 09/25/16 09/25/16 04:57 08:02 10:30 WBC RBC Hgb Hct MCV MCH MCHC RDW Plt Count Lymph % (Auto) [place] % (Auto) Lymph # [place] # Seg Neutrophils % Seg Neuts % (Manual) Lymphocytes % (Manual) Monocytes % (Manual) Eosinophils % (Manual) Basophils % (Manual) Nucleated RBC % Seg Neutrophils # Seg Neutrophils # Man Lymphocytes # (Manual) Monocytes # (Manual) Eosinophils # (Manual) Fibrinogen dRVVT Confirm Interp Factor V Activity POC ABG pH POC ABG pCO2 24.7 L POC ABG pO2 152 H Sodium Potassium Chloride Carbon Dioxide BUN Creatinine Glucose POC Glucose 113 H Lactic Acid Calcium Phosphorus Magnesium Direct Bilirubin Troponin T C-Reactive Protein Total Protein Albumin Triglycerides Cholesterol LDL Cholesterol Direct HDL Cholesterol Urine WBC (Auto) Urine Creatinine Urine Total Protein Vancomycin Trough Rheumatoid Factor Complement C4 Crossmatch See Detail 09/25/16 09/25/16 09/25/16 12:05 17:44 23:47 WBC RBC Hgb Hct MCV MCH MCHC RDW Plt Count Lymph % (Auto) [place] % (Auto) Lymph # [place] # Seg Neutrophils % Seg Neuts % (Manual) Lymphocytes % (Manual) Monocytes % (Manual) Eosinophils % (Manual) Basophils % (Manual) Nucleated RBC % Seg Neutrophils # Seg Neutrophils # Man Lymphocytes # (Manual) Monocytes # (Manual) Eosinophils # (Manual) Fibrinogen dRVVT Confirm Interp Factor V Activity POC ABG pH POC ABG pCO2 POC ABG pO2 Sodium Potassium Chloride Carbon Dioxide BUN Creatinine Glucose POC Glucose 117 H 119 H 150 H Lactic Acid Calcium Phosphorus Magnesium Direct Bilirubin Troponin T C-Reactive Protein Total Protein Albumin Triglycerides Cholesterol LDL Cholesterol Direct HDL Cholesterol Urine WBC (Auto) Urine Creatinine Urine Total Protein Vancomycin Trough Rheumatoid Factor Complement C4 Crossmatch 09/26/16 09/26/16 09/26/16 04:25 04:25 04:25 WBC RBC 2.65 L Hgb 7.4 L Hct 21.6 L MCV MCH MCHC RDW 22.5 H Plt Count Lymph % (Auto) [place] % (Auto) Lymph # [place] # Seg Neutrophils % Seg Neuts % (Manual) Lymphocytes % (Manual) 6.0 L Monocytes % (Manual) Eosinophils % (Manual) 11.0 H Basophils % (Manual) Nucleated RBC % Seg Neutrophils # Seg Neutrophils # Man Lymphocytes # (Manual) 0.4 L Monocytes # (Manual) Eosinophils # (Manual) 0.6 H Fibrinogen dRVVT Confirm Interp Factor V Activity POC ABG pH POC ABG pCO2 POC ABG pO2 Sodium Potassium Chloride 97.0 L Carbon Dioxide 19 L BUN 43 H Creatinine 2.6 H Glucose 130 H POC Glucose Lactic Acid 4.40 H* Calcium 6.7 L Phosphorus Magnesium Direct Bilirubin Troponin T C-Reactive Protein Total Protein Albumin Triglycerides Cholesterol LDL Cholesterol Direct HDL Cholesterol Urine WBC (Auto) Urine Creatinine Urine Total Protein Vancomycin Trough Rheumatoid Factor Complement C4 Crossmatch 09/26/16 09/26/16 09/26/16 05:20 11:44 12:12 WBC RBC Hgb Hct MCV MCH MCHC RDW Plt Count Lymph % (Auto) [place] % (Auto) Lymph # [place] # Seg Neutrophils % Seg Neuts % (Manual) Lymphocytes % (Manual) Monocytes % (Manual) Eosinophils % (Manual) Basophils % (Manual) Nucleated RBC % Seg Neutrophils # Seg Neutrophils # Man Lymphocytes # (Manual) Monocytes # (Manual) Eosinophils # (Manual) Fibrinogen dRVVT Confirm Interp Factor V Activity POC ABG pH POC ABG pCO2 27.0 L POC ABG pO2 69 L Sodium Potassium Chloride Carbon Dioxide BUN Creatinine Glucose POC Glucose 121 H 128 H Lactic Acid Calcium Phosphorus Magnesium Direct Bilirubin Troponin T C-Reactive Protein Total Protein Albumin Triglycerides Cholesterol LDL Cholesterol Direct HDL Cholesterol Urine WBC (Auto) Urine Creatinine Urine Total Protein Vancomycin Trough Rheumatoid Factor Complement C4 Crossmatch 09/26/16 09/26/16 09/27/16 18:31 23:40 08:20 WBC RBC Hgb Hct MCV MCH MCHC RDW Plt Count Lymph % (Auto) [place] % (Auto) Lymph # [place] # Seg Neutrophils % Seg Neuts % (Manual) Lymphocytes % (Manual) Monocytes % (Manual) Eosinophils % (Manual) Basophils % (Manual) Nucleated RBC % Seg Neutrophils # Seg Neutrophils # Man Lymphocytes # (Manual) Monocytes # (Manual) Eosinophils # (Manual) Fibrinogen dRVVT Confirm Interp Factor V Activity POC ABG pH POC ABG pCO2 POC ABG pO2 Sodium Potassium Chloride Carbon Dioxide BUN Creatinine Glucose POC Glucose 120 H 133 H Lactic Acid 4.10 H* Calcium Phosphorus Magnesium Direct Bilirubin Troponin T C-Reactive Protein Total Protein Albumin Triglycerides Cholesterol LDL Cholesterol Direct HDL Cholesterol Urine WBC (Auto) Urine Creatinine Urine Total Protein Vancomycin Trough Rheumatoid Factor Complement C4 Crossmatch 09/27/16 09/27/16 09/27/16 11:23 15:00 18:15 WBC RBC Hgb Hct MCV MCH MCHC RDW Plt Count Lymph % (Auto) [place] % (Auto) Lymph # [place] # Seg Neutrophils % Seg Neuts % (Manual) Lymphocytes % (Manual) Monocytes % (Manual) Eosinophils % (Manual) Basophils % (Manual) Nucleated RBC % Seg Neutrophils # Seg Neutrophils # Man Lymphocytes # (Manual) Monocytes # (Manual) Eosinophils # (Manual) Fibrinogen dRVVT Confirm Interp Factor V Activity POC ABG pH 7.459 H POC ABG pCO2 27.1 L POC ABG pO2 140 H Sodium Potassium Chloride Carbon Dioxide BUN Creatinine Glucose POC Glucose 114 H 127 H Lactic Acid Calcium Phosphorus Magnesium Direct Bilirubin Troponin T C-Reactive Protein Total Protein Albumin Triglycerides Cholesterol LDL Cholesterol Direct HDL Cholesterol Urine WBC (Auto) Urine Creatinine Urine Total Protein Vancomycin Trough Rheumatoid Factor Complement C4 Crossmatch 09/27/16 09/27/16 09/28/16 Unknown Unknown 03:45 WBC RBC 2.49 L Hgb 6.8 L Hct 20.7 L MCV MCH 27 L MCHC RDW 22.1 H Plt Count Lymph % (Auto) [place] % (Auto) Lymph # [place] # Seg Neutrophils % Seg Neuts % (Manual) 32.0 L Lymphocytes % (Manual) 12.0 L Monocytes % (Manual) 11.0 H Eosinophils % (Manual) 10.0 H Basophils % (Manual) Nucleated RBC % Seg Neutrophils # Seg Neutrophils # Man Lymphocytes # (Manual) 1.0 L Monocytes # (Manual) 0.9 H Eosinophils # (Manual) 0.8 H Fibrinogen dRVVT Confirm Interp Factor V Activity POC ABG pH POC ABG pCO2 POC ABG pO2 Sodium 135 L 135 L Potassium 3.5 L Chloride 93.6 L 94.4 L Carbon Dioxide 17 L 21 L BUN 45 H 28 H Creatinine 3.3 H 2.5 H Glucose 106 H POC Glucose Lactic Acid Calcium 7.3 L 7.1 L Phosphorus Magnesium Direct Bilirubin Troponin T C-Reactive Protein Total Protein Albumin Triglycerides Cholesterol LDL Cholesterol Direct HDL Cholesterol Urine WBC (Auto) Urine Creatinine Urine Total Protein Vancomycin Trough Rheumatoid Factor Complement C4 Crossmatch 09/28/16 09/28/16 09/28/16 03:45 07:25 11:58 WBC 13.3 H RBC 3.01 L Hgb 8.4 L Hct 25.0 L MCV MCH MCHC RDW 20.5 H Plt Count 128 L Lymph % (Auto) [place] % (Auto) Lymph # [place] # Seg Neutrophils % Seg Neuts % (Manual) Lymphocytes % (Manual) 7.0 L Monocytes % (Manual) Eosinophils % (Manual) 6.0 H Basophils % (Manual) Nucleated RBC % Seg Neutrophils # Seg Neutrophils # Man Lymphocytes # (Manual) 0.9 L Monocytes # (Manual) Eosinophils # (Manual) 0.8 H Fibrinogen dRVVT Confirm Interp Factor V Activity POC ABG pH POC ABG pCO2 POC ABG pO2 Sodium Potassium Chloride Carbon Dioxide BUN Creatinine Glucose POC Glucose 121 H Lactic Acid 4.50 H* Calcium Phosphorus Magnesium Direct Bilirubin Troponin T C-Reactive Protein Total Protein Albumin Triglycerides Cholesterol LDL Cholesterol Direct HDL Cholesterol Urine WBC (Auto) Urine Creatinine Urine Total Protein Vancomycin Trough Rheumatoid Factor Complement C4 Crossmatch 09/29/16 09/29/16 09/29/16 06:45 06:45 06:45 WBC 14.9 H RBC 2.74 L Hgb 7.6 L Hct 23.2 L MCV MCH MCHC RDW 20.5 H Plt Count 81 L Lymph % (Auto) [place] % (Auto) Lymph # [place] # Seg Neutrophils % Seg Neuts % (Manual) 81.0 H Lymphocytes % (Manual) 4.0 L Monocytes % (Manual) Eosinophils % (Manual) Basophils % (Manual) Nucleated RBC % Seg Neutrophils # Seg Neutrophils # Man 12.1 H Lymphocytes # (Manual) 0.6 L Monocytes # (Manual) Eosinophils # (Manual) Fibrinogen dRVVT Confirm Interp Factor V Activity POC ABG pH POC ABG pCO2 POC ABG pO2 Sodium 133 L Potassium 3.4 L Chloride 92.5 L Carbon Dioxide 21 L BUN 33 H Creatinine 3.0 H Glucose POC Glucose Lactic Acid Calcium 6.6 L Phosphorus Magnesium 1.40 L Direct Bilirubin 0.9 H Troponin T C-Reactive Protein Total Protein 4.3 L Albumin 1.3 L Triglycerides Cholesterol LDL Cholesterol Direct HDL Cholesterol Urine WBC (Auto) Urine Creatinine Urine Total Protein Vancomycin Trough Rheumatoid Factor Complement C4 Crossmatch 09/29/16 09/29/16 09/30/16 17:52 20:12 00:07 WBC RBC Hgb Hct MCV MCH MCHC RDW Plt Count Lymph % (Auto) [place] % (Auto) Lymph # [place] # Seg Neutrophils % Seg Neuts % (Manual) Lymphocytes % (Manual) Monocytes % (Manual) Eosinophils % (Manual) Basophils % (Manual) Nucleated RBC % Seg Neutrophils # Seg Neutrophils # Man Lymphocytes # (Manual) Monocytes # (Manual) Eosinophils # (Manual) Fibrinogen dRVVT Confirm Interp Factor V Activity POC ABG pH POC ABG pCO2 POC ABG pO2 Sodium Potassium Chloride Carbon Dioxide BUN Creatinine Glucose POC Glucose 50 L 51 L Lactic Acid Calcium Phosphorus Magnesium Direct Bilirubin Troponin T 0.204 H* C-Reactive Protein Total Protein Albumin Triglycerides Cholesterol 31 L LDL Cholesterol Direct 4 L HDL Cholesterol 3 L Urine WBC (Auto) Urine Creatinine Urine Total Protein Vancomycin Trough Rheumatoid Factor Complement C4 Crossmatch 09/30/16 09/30/16 09/30/16 01:30 05:15 06:10 WBC RBC Hgb Hct MCV MCH MCHC RDW Plt Count Lymph % (Auto) [place] % (Auto) Lymph # [place] # Seg Neutrophils % Seg Neuts % (Manual) Lymphocytes % (Manual) Monocytes % (Manual) Eosinophils % (Manual) Basophils % (Manual) Nucleated RBC % Seg Neutrophils # Seg Neutrophils # Man Lymphocytes # (Manual) Monocytes # (Manual) Eosinophils # (Manual) Fibrinogen dRVVT Confirm Interp Factor V Activity POC ABG pH POC ABG pCO2 POC ABG pO2 Sodium 133 L Potassium 3.2 L Chloride 93.2 L Carbon Dioxide 19 L BUN 36 H Creatinine 3.2 H Glucose 104 H POC Glucose 167 H 146 H Lactic Acid Calcium 6.4 L Phosphorus Magnesium 1.60 L Direct Bilirubin Troponin T C-Reactive Protein Total Protein Albumin Triglycerides Cholesterol LDL Cholesterol Direct HDL Cholesterol Urine WBC (Auto) Urine Creatinine Urine Total Protein Vancomycin Trough Rheumatoid Factor Complement C4 Crossmatch 09/30/16 09/30/16 09/30/16 11:26 13:39 18:38 WBC RBC Hgb Hct MCV MCH MCHC RDW Plt Count Lymph % (Auto) [place] % (Auto) Lymph # [place] # Seg Neutrophils % Seg Neuts % (Manual) Lymphocytes % (Manual) Monocytes % (Manual) Eosinophils % (Manual) Basophils % (Manual) Nucleated RBC % Seg Neutrophils # Seg Neutrophils # Man Lymphocytes # (Manual) Monocytes # (Manual) Eosinophils # (Manual) Fibrinogen dRVVT Confirm Interp Factor V Activity POC ABG pH 7.479 H POC ABG pCO2 29.8 L POC ABG pO2 117 H Sodium Potassium Chloride Carbon Dioxide BUN Creatinine Glucose POC Glucose 140 H 122 H Lactic Acid Calcium Phosphorus Magnesium Direct Bilirubin Troponin T C-Reactive Protein Total Protein Albumin Triglycerides Cholesterol LDL Cholesterol Direct HDL Cholesterol Urine WBC (Auto) Urine Creatinine Urine Total Protein Vancomycin Trough Rheumatoid Factor Complement C4 Crossmatch 10/01/16 10/01/16 10/01/16 06:00 06:00 12:37 WBC 12.6 H RBC 2.75 L Hgb 7.3 L Hct 23.3 L MCV MCH 27 L MCHC RDW 20.6 H Plt Count 72 L Lymph % (Auto) [place] % (Auto) Lymph # [place] # Seg Neutrophils % Seg Neuts % (Manual) 31.0 L Lymphocytes % (Manual) 8.0 L Monocytes % (Manual) Eosinophils % (Manual) Basophils % (Manual) Nucleated RBC % 3.0 H Seg Neutrophils # Seg Neutrophils # Man Lymphocytes # (Manual) 1.0 L Monocytes # (Manual) Eosinophils # (Manual) Fibrinogen dRVVT Confirm Interp Factor V Activity POC ABG pH POC ABG pCO2 POC ABG pO2 Sodium 127 L Potassium Chloride 86.8 L Carbon Dioxide 20 L BUN 42 H Creatinine 3.5 H Glucose POC Glucose 65 L Lactic Acid Calcium 7.0 L Phosphorus Magnesium Direct Bilirubin Troponin T C-Reactive Protein Total Protein Albumin Triglycerides Cholesterol LDL Cholesterol Direct HDL Cholesterol Urine WBC (Auto) Urine Creatinine Urine Total Protein Vancomycin Trough Rheumatoid Factor Complement C4 Crossmatch Allied health notes reviewed: RT
[2016-10-01] MEDS ORDERED: NACL 0.9% 100 ML IV PRN (13:09)
--- NOTE | 2016-10-01 13:26 | Progress Note ---
Assessment and Plan Assessment and plan: --Hyponatremia; probably secondary to fluid overload secondary to end-stage renal disease Dialysis is scheduled for today, nephrology following --Hypokalemia; corrected --Hypomagnesemia; corrected --Acute hypoxic respiratory failure vent dependent/unable to wean s/p trach and PEG, continue PEG feeds --Paroxysmal A. fib, persistent RVR ,on amiodarone drip, Cardiology following --Chronic anticoagulation need to be started per cardiology, will consult neurology for recommendations --Anemia, status post multiple units of PRBC transfusion, closely monitor H&H and transfuse as needed --Hypotension/ septic shock on multiple pressors, titrate systolic blood pressures to more than 100 --Acute on chronic kidney disease stage III , worsening renal function , nephrology following Hemodialysis as needed --Acute large left MCA CVA status post TPA/encephalopathy, Aspirin/statin/ supportive care --Aspiration pneumonia, Continue vancomycin and Flagyl, ID following --Acute exacerbation of COPD;, Nebulizers tapering dose of steroids antibiotics and ventilatory support, pulmonary following --Anemia requiring blood transfusion; closely monitor H&H and transfuse as needed --2 diabetes mellitus; Accu-Chek sliding scale coverage and ADA diet and insulin as needed --Moderate to severe protein calorie malnutrition with albumin of 2.2, Nutritional supplements, tube feeding, supportive care --DVT prophylaxis with heparin --Full CODE STATUS Very poor prognosis; I talked to son and the brother periodically and updated patient's condition and treatment plan They are aware of patient's poor prognosis Critical care time 31 minutes History Interval history: Patient seen and evaluated medical records reviewed Patient remains critically ill, vent dependent, tracheostomy, on amiodarone drip tachycardic Patient is off pressors, unresponsive, vital signs reviewed Hospitalist Physical - Constitutional Vitals: Temp Pulse Resp BP Pulse Ox 97.6 F 98 H 26 H 107/66 100 10/01/16 12:00 10/01/16 11:49 10/01/16 11:00 10/01/16 11:49 10/01/16 11:49 General appearance: Present: no acute distress, cachectic, other (status post tracheostomy on vent) - EENT Eyes: Present: PERRL, EOM intact - Neck Neck: Present: supple, normal ROM - Respiratory Respiratory effort: normal Respiratory: bilateral: diminished, rhonchi, negative: rales, wheezing - Cardiovascular Rhythm: regular Heart Sounds: Present: S1 & S2 - Extremities Extremities: no ischemia, pulses intact, pulses symmetrical Peripheral Pulses: within normal limits - Abdominal General gastrointestinal: soft, non-distended, normal bowel sounds, other (PEG tube in place) - Integumentary Integumentary: Present: clear, warm - Psychiatric Psychiatric: appropriate mood/affect, cooperative - Neurologic Neurologic: CNII-XII intact, moves all extremities Results - Labs CBC & Chem 7: 10/01/16 06:00 10/01/16 06:00 Labs: Laboratory Last Values WBC 12.6 K/mm3 (4.5-11.0) H 10/01/16 06:00 RBC 2.75 M/mm3 (3.65-5.03) L 10/01/16 06:00 Hgb 7.3 gm/dl (10.1-14.3) L 10/01/16 06:00 Hct 23.3 % (30.3-42.9) L 10/01/16 06:00 MCV 85 fl (79-97) 10/01/16 06:00 MCH 27 pg (28-32) L 10/01/16 06:00 MCHC 31 % (30-34) 10/01/16 06:00 RDW 20.6 % (13.2-15.2) H 10/01/16 06:00 Plt Count 72 K/mm3 (140-440) L 10/01/16 06:00 Lymph % (Auto) 6.9 % (13.4-35.0) L 09/21/16 07:45 [place] % (Auto) 9.4 % (0.0-7.3) H 09/21/16 07:45 Eos % (Auto) 0.3 % (0.0-4.3) 09/21/16 07:45 Baso % (Auto) 0.2 % (0.0-1.8) 09/21/16 07:45 Lymph # 0.9 K/mm3 (1.2-5.4) L 09/21/16 07:45 [place] # 1.3 K/mm3 (0.0-0.8) H 09/21/16 07:45 Eos # 0.0 K/mm3 (0.0-0.4) 09/21/16 07:45 Baso # 0.0 K/mm3 (0.0-0.1) 09/21/16 07:45 Add Manual Diff Complete 10/01/16 06:00 Total Counted 100 10/01/16 06:00 Seg Neutrophils % Primary Care Nurse 10/01/16 06:00 Seg Neuts % (Manual) 31.0 % (40.0-70.0) L 10/01/16 06:00 Band Neutrophils % 55.0 % 10/01/16 06:00 Lymphocytes % (Manual) 8.0 % (13.4-35.0) L 10/01/16 06:00 Reactive Lymphs % (Man) 1.0 % 10/01/16 06:00 Monocytes % (Manual) 5.0 % (0.0-7.3) 10/01/16 06:00 Eosinophils % (Manual) 0 % (0.0-4.3) 10/01/16 06:00 Basophils % (Manual) 0 % (0.0-1.8) 10/01/16 06:00 Metamyelocytes % 0 % 10/01/16 06:00 Myelocytes % 0 % 10/01/16 06:00 Promyelocytes % 0 % 10/01/16 06:00 Blast Cells % 0 % 10/01/16 06:00 Nucleated RBC % 3.0 % (0.0-0.9) H 10/01/16 06:00 Seg Neutrophils # 11.5 K/mm3 (1.8-7.7) H 09/21/16 07:45 Seg Neutrophils # Man 3.9 K/mm3 (1.8-7.7) 10/01/16 06:00 Band Neutrophils # 6.9 K/mm3 10/01/16 06:00 Lymphocytes # (Manual) 1.0 K/mm3 (1.2-5.4) L 10/01/16 06:00 Abs React Lymphs (Man) 0.1 K/mm3 10/01/16 06:00 Monocytes # (Manual) 0.6 K/mm3 (0.0-0.8) 10/01/16 06:00 Eosinophils # (Manual) 0.0 K/mm3 (0.0-0.4) 10/01/16 06:00 Basophils # (Manual) 0.0 K/mm3 (0.0-0.1) 10/01/16 06:00 Metamyelocytes # 0.0 K/mm3 10/01/16 06:00 Myelocytes # 0.0 K/mm3 10/01/16 06:00 Promyelocytes # 0.0 K/mm3 10/01/16 06:00 Blast Cells # 0.0 K/mm3 10/01/16 06:00 Pathologist Review 09/13/16 04:00 WBC Morphology Not Reportable 10/01/16 06:00 Hypersegmented Neuts Not Reportable 10/01/16 06:00 Hyposegmented Neuts Not Reportable 10/01/16 06:00 Hypogranular Neuts Not Reportable 10/01/16 06:00 Smudge Cells Not Reportable 10/01/16 06:00 Toxic Granulation Not Reportable 10/01/16 06:00 Toxic Vacuolation Not Reportable 10/01/16 06:00 Dohle Bodies 1+ 10/01/16 06:00 Pelger-Huet Anomaly Not Reportable 10/01/16 06:00 Jasmina Rods Not Reportable 10/01/16 06:00 Platelet Estimate Consistent w auto 10/01/16 06:00 Clumped Platelets Not Reportable 10/01/16 06:00 Plt Clumps, EDTA Not Reportable 10/01/16 06:00 Large Platelets Few 10/01/16 06:00 Giant Platelets Not Reportable 10/01/16 06:00 Platelet Satelliting Not Reportable 10/01/16 06:00 Plt Morphology Comment Not Reportable 10/01/16 06:00 RBC Morphology Not Reportable 10/01/16 06:00 Dimorphic RBCs Not Reportable 10/01/16 06:00 Polychromasia Not Reportable 10/01/16 06:00 Hypochromasia Few 10/01/16 06:00 Poikilocytosis Not Reportable 10/01/16 06:00 Anisocytosis 1+ 10/01/16 06:00 Microcytosis Not Reportable 10/01/16 06:00 Macrocytosis Not Reportable 10/01/16 06:00 Spherocytes Not Reportable 10/01/16 06:00 Pappenheimer Bodies Not Reportable 10/01/16 06:00 Sickle Cells Not Reportable 10/01/16 06:00 Target Cells Not Reportable 10/01/16 06:00 Tear Drop Cells Not Reportable 10/01/16 06:00 Ovalocytes Not Reportable 10/01/16 06:00 Helmet Cells Not Reportable 10/01/16 06:00 Monet-Sultana Bodies Not Reportable 10/01/16 06:00 [place] Rings Not Reportable 10/01/16 06:00 [place] Cells Not Reportable 10/01/16 06:00 Bite Cells Not Reportable 10/01/16 06:00 Crenated Cell Not Reportable 10/01/16 06:00 Elliptocytes Not Reportable 10/01/16 06:00 Acanthocytes (Spur) Not Reportable 10/01/16 06:00 Rouleaux Not Reportable 10/01/16 06:00 Hemoglobin C Crystals Not Reportable 10/01/16 06:00 Schistocytes Not Reportable 10/01/16 06:00 Malaria parasites Not Reportable 10/01/16 06:00 ESR > 140.0 mm/Hr (0-20) 09/08/16 11:48 Jun Bodies Not Reportable 10/01/16 06:00 Hem Pathologist Commnt No 10/01/16 06:00 PT 13.8 Sec. (12.2-14.9) 09/15/16 05:00 INR 1.01 (0.87-1.13) 09/15/16 05:00 APTT 24.4 Sec. (24.2-36.6) 09/15/16 05:00 Thrombin Time 16.8 Sec. (15.1-19.6) 09/03/16 00:10 Fibrinogen 750 mg/dl (211-480) H 09/08/16 11:48 Lupus Anticoagulant see below 09/12/16 09:59 LA PTT Baseline See scanned report 09/12/16 09:59 dRVVT Confirm Interp Positive (Negative) H 09/12/16 09:59 dRVVT Screen 50:50 See scanned report 09/12/16 09:59 dRVVT Mix Interpret See scanned report 09/12/16 09:59 Protein C Antigen 122 % (70-140) 09/08/16 15:35 Free Protein S 97 % normal (50-147) 09/08/16 15:35 Total Protein S 109 % (70-140) 09/08/16 15:35 Antithrombin III Ag 100 % (80-120) 09/08/16 15:35 Factor V Activity 182 % (65-150) H 09/08/16 15:35 POC ABG pH 7.479 (7.35-7.45) H 09/30/16 13:39 POC ABG pCO2 29.8 (35-45) L 09/30/16 13:39 POC ABG pO2 117 (80-105) H 09/30/16 13:39 POC ABG HCO3 22.2 09/30/16 13:39 POC ABG Total CO2 23 09/30/16 13:39 POC ABG O2 Sat 99 09/30/16 13:39 POC ABG Base Excess -1 09/30/16 13:39 FiO2 40 % 09/30/16 13:39 Sodium 127 mmol/L (137-145) L 10/01/16 06:00 Potassium 3.7 mmol/L (3.6-5.0) 10/01/16 06:00 Chloride 86.8 mmol/L (98-107) L 10/01/16 06:00 Carbon Dioxide 20 mmol/L (22-30) L 10/01/16 06:00 Anion Gap 24 mmol/L 10/01/16 06:00 BUN 42 mg/dL (7-17) H 10/01/16 06:00 Creatinine 3.5 mg/dL (0.7-1.2) H 10/01/16 06:00 Estimated GFR 17 ml/min 10/01/16 06:00 BUN/Creatinine Ratio 12.00 % 10/01/16 06:00 Glucose 88 mg/dL (65-100) 10/01/16 06:00 POC Glucose 65 (70-105) L 10/01/16 12:37 Osmolality 351 Mosm/kg 09/16/16 11:47 Lactic Acid 4.50 mmol/L (0.7-2.0) H* 09/28/16 07:25 Calcium 7.0 mg/dL (8.4-10.2) L 10/01/16 06:00 Phosphorus 4.60 mg/dL (2.5-4.5) H 09/25/16 04:20 Magnesium 1.90 mg/dL (1.7-2.3) 10/01/16 06:00 Total Bilirubin 1.20 mg/dL (0.1-1.2) 09/29/16 06:45 Direct Bilirubin 0.9 mg/dL (0-0.2) H 09/29/16 06:45 Indirect Bilirubin 0.3 mg/dL 09/29/16 06:45 AST 24 units/L (5-40) 09/29/16 06:45 ALT 16 units/L (7-56) 09/29/16 06:45 Alkaline Phosphatase 72 units/L (35-129) 09/29/16 06:45 Ammonia 27.0 umol/L (25-60) 09/07/16 08:37 Total Creatine Kinase 121 units/L (30-135) 09/29/16 20:12 CK-MB (CK-2) < 1.0 ng/mL (0.0-4.0) 09/29/16 20:12 CK-MB (CK-2) Rel Index 0.8 (0-4) 09/29/16 20:12 Troponin T 0.204 ng/mL (0.00-0.029) H* 09/29/16 20:12 C-Reactive Protein 3.20 mg/dL (0.00-1.30) H 09/23/16 05:00 Total Protein 4.3 g/dL (6.3-8.2) L 09/29/16 06:45 Albumin 1.3 g/dL (3.9-5) L 09/29/16 06:45 Albumin/Globulin Ratio 0.4 % 09/29/16 06:45 Triglycerides 137 mg/dL (2-149) 09/29/16 20:12 Cholesterol 31 mg/dL (50-199) L 09/29/16 20:12 LDL Cholesterol Direct 4 mg/dL (50-130) L 09/29/16 20:12 HDL Cholesterol 3 mg/dL (40-59) L 09/29/16 20:12 Cholesterol/HDL Ratio 10.33 % 09/29/16 20:12 Angiotensin Convert Enz See scanned report 09/08/16 11:48 TSH 1.010 mlU/mL (0.270-4.200) 09/07/16 08:37 HCG, Qual Negative (Negative) 09/03/16 00:10 Urine Color Yellow (Yellow) 09/09/16 14:13 Urine Turbidity Slightly-cloudy (Clear) 09/09/16 14:13 Urine pH 5.0 (5.0-7.0) 09/09/16 14:13 Ur Specific [place] 1.012 (1.003-1.030) 09/09/16 14:13 Urine Protein 30 mg/dl mg/dL (Negative) 09/09/16 14:13 Urine Glucose (UA) Neg mg/dL (Negative) 09/09/16 14:13 Urine Ketones Neg mg/dL (Negative) 09/09/16 14:13 Urine Blood Lg (Negative) 09/09/16 14:13 Urine Nitrite Neg (Negative) 09/09/16 14:13 Urine Bilirubin Neg (Negative) 09/09/16 14:13 Urine Urobilinogen < 2.0 mg/dL (<2.0) 09/09/16 14:13 Ur Leukocyte Esterase Sm (Negative) 09/09/16 14:13 Urine WBC (Auto) 25.0 /HPF (0.0-6.0) H 09/09/16 14:13 Urine RBC (Auto) > 182.0 /HPF (0.0-6.0) 09/09/16 14:13 Urine Bacteria (Auto) 1+ /HPF (Negative) 09/09/16 14:13 Urine WBC Clumps 2+ /HPF 09/07/16 02:47 Hyaline Casts 4 /LPF 09/07/16 02:47 Urine Mucus Few /HPF 09/09/16 14:13 Urine Eosinophils None seen (None Seen) 09/07/16 16:00 Urine Total Volume 1350 09/21/16 12:00 Urine Creatinine 54.8 mg/dL (0.1-20.0) H 09/21/16 12:00 Height (in) 67.0 inches 09/21/16 12:00 Weight (lb) 92.0 lbs 09/21/16 12:00 Creatinine Clearance 15 09/21/16 12:00 Urine Sodium 36 mEq/L 09/16/16 19:19 Urine Total Protein 16 mg/dL (5-11.8) H 09/16/16 19:19 Vancomycin Trough 2.3 ug/mL (5.0-20.0) L 09/21/16 13:00 Random Vancomycin 2.3 ug/mL (0-40.0) 09/09/16 03:00 Urine Opiates Screen Presumptive negative 09/03/16 15:11 Urine Methadone Screen Presumptive positive 09/03/16 15:11 Ur Barbiturates Screen Presumptive positive 09/03/16 15:11 Ur Phencyclidine Scrn Presumptive negative 09/03/16 15:11 Ur Amphetamines Screen Presumptive negative 09/03/16 15:11 U Benzodiazepines Scrn Presumptive negative 09/03/16 15:11 Urine Cocaine Screen Presumptive negative 09/03/16 15:11 U Marijuana (THC) Screen Presumptive positive 09/03/16 15:11 Drugs of Abuse Note Disclamer 09/03/16 15:11 Rheumatoid Factor 24 IU/ml (0-13) H 09/08/16 11:48 SAHIL Screen Negative (Negative) 09/07/16 09:20 Proteinase 3 (PR3) Ab <1.0 AI (<1.0) 09/07/16 09:20 Myeloperoxidase Ab <1.0 AI (<1.0) 09/07/16 09:20 Sjogren's Antibody <1.0 AI (<1.0) 09/08/16 15:35 Scl-70 Scleroderma Ab <1.0 AI (<1.0) 09/08/16 15:35 Centromere B Antibody <1.0 AI (<1.0) 09/08/16 12:02 Cardiolipid IgG Ab <14 GPL (<=14) 09/12/16 09:59 Cardiolipid IgA Ab <11 APL (<=11) 09/12/16 09:59 Cardiolipid IgM Ab <12 MPL (<=12) 09/12/16 09:59 Complement C3 148 mg/dL (90-180) 09/07/16 09:20 Complement C4 58 mg/dL (16-47) H 09/07/16 09:20 RPR Nonreactive (Nonreactive) 09/08/16 11:48 Hepatitis A IgM Ab Non-reactive (NonReactive) 09/24/16 14:40 Hep Bs Antigen Non-reactive (Negative) 09/24/16 14:40 Hep B Core IgM Ab Non-reactive (NonReactive) 09/24/16 14:40 Hepatitis C Antibody Non-reactive (NonReactive) 09/24/16 14:40 HIV 1&2 Antibody Rapid Non react (Non React) 09/08/16 11:48 HIV P24 Antigen Non react (Non React) 09/08/16 11:48 Blood Type A POSITIVE 09/25/16 10:30 Antibody Screen TNR 09/25/16 10:30 DELORIS Antibody Screen Negative 09/25/16 10:30 Crossmatch See Detail 09/25/16 10:30
--- NOTE | 2016-10-01 14:14 | Progress Note ---
Assessment and Plan Hypoxic respiratory failure on mechanical ventilation s/p trach and PEG S/P left MCA CVA echocardiogram demonstrates at least moderate LVH but a normal LV systolic function, EF 50-55%. no thrombus visualized on transthoracic echocardiogram. Acute on chronic renal failure Leukocytosis/Fever Fungemia Diabetes mellitus Anemia requiring transfusion of PRBCs Persistent Afib with RVR Better rate controlled on IV amiodarone. s/p failed cardioversion on 09/25 Recommend: Given renal failure, will stop digoxin. Continue IV amiodarone. Subjective Date of service: 10/01/16 Principal diagnosis: Acute resp failure on MVS; S/P Acute CVA; Acute Encephalopathy; JUANITA Interval history: No acute events. Remains mechanically ventilated Objective Vital Signs Temp Pulse Pulse Resp BP Pulse Ox Pulse Ox 10/01/16 13:30 117 H 30 H 114/71 100 10/01/16 13:00 103 H 28 H 113/54 100 10/01/16 12:30 97 H 25 H 110/60 100 10/01/16 12:00 97.6 F 97 H 28 H 101/59 100 10/01/16 11:49 98 H 107/66 100 10/01/16 11:30 95 H 24 107/66 100 10/01/16 11:00 97 H 26 H 123/58 100 10/01/16 10:30 96 H 26 H 124/63 100 10/01/16 10:00 106 H 26 H 116/62 100 10/01/16 09:30 99 H 25 H 123/58 100 10/01/16 09:00 100 H 27 H 135/67 99 10/01/16 08:30 97 H 34 H 123/67 91 10/01/16 08:00 98.7 F 113 H 36 H 113/57 93 10/01/16 07:30 122 H 30 H 113/57 100 10/01/16 07:27 100 10/01/16 07:21 92 H 106/61 100 10/01/16 07:00 91 H 18 106/61 100 10/01/16 06:30 108 H 29 H 111/61 100 10/01/16 06:00 111 H 24 124/65 100 10/01/16 05:30 119 H 30 H 120/53 100 10/01/16 05:00 111 H 26 H 129/63 100 10/01/16 04:30 92 H 36 H 129/64 100 10/01/16 04:25 110 H 129/64 100 10/01/16 04:00 93 H 36 H 119/57 100 10/01/16 03:41 97.7 F 10/01/16 03:30 96 H 31 H 121/66 100 10/01/16 03:00 93 H 29 H 114/62 100 10/01/16 02:32 114 H 10/01/16 02:30 94 H 25 H 111/60 100 10/01/16 02:00 90 38 H 106/51 100 10/01/16 01:50 138 H 121/69 10/01/16 01:30 114 H 38 H 121/69 97 10/01/16 01:00 116 H 35 H 115/59 100 10/01/16 00:30 113 H 14 105/75 89 10/01/16 00:12 99 10/01/16 00:10 110 H 131/74 99 10/01/16 00:00 99.6 F 111 H 28 H 105/75 100 09/30/16 23:30 120 H 32 H 119/72 96 09/30/16 23:00 110 H 27 H 112/59 100 09/30/16 22:30 114 H 33 H 115/59 100 09/30/16 22:00 130 H 25 H 96/48 100 09/30/16 21:44 117 H 28 H 96/48 100 09/30/16 21:30 106 H 106 H 26 H 96/48 100 09/30/16 21:00 103 H 26 H 100/53 100 09/30/16 20:30 111 H 26 H 107/55 100 09/30/16 20:09 114 H 96/59 100 09/30/16 20:00 135 H 27 H 96/59 100 09/30/16 19:38 99.6 F 09/30/16 19:30 103 H 26 H 104/51 100 09/30/16 19:00 120 H 27 H 108/65 100 09/30/16 18:30 107 H 28 H 108/61 100 09/30/16 18:00 104 H 28 H 117/62 100 09/30/16 17:30 121 H 25 H 117/61 100 09/30/16 17:00 126 H 24 110/67 100 09/30/16 16:51 123 H 103/57 08/17 16:30 109 H 27 H 103/57 100 09/30/16 16:05 117 H 105/69 99 09/30/16 16:00 97.8 F 128 H 22 105/69 99 09/30/16 15:30 124 H 29 H 124/71 99 09/30/16 15:00 126 H 28 H 145/89 100 09/30/16 14:30 122 H 18 114/59 100 - Physical Examination General: Other (intubated via trach) Neck: Positive: neck supple Cardiac: Positive: irregularly irregular Lungs: Positive: Rhonchi Abdomen: Positive: Soft Extremities: Absent: edema - Labs and Meds CBC 10/01/16 Range/Units 06:00 WBC 12.6 H (4.5-11.0) K/mm3 RBC 2.75 L (3.65-5.03) M/mm3 Hgb 7.3 L (10.1-14.3) gm/dl Hct 23.3 L (30.3-42.9) % Plt Count 72 L (140-440) K/mm3 Comprehensive Metabolic Panel 10/01/16 Range/Units 06:00 Sodium 127 L (137-145) mmol/L Potassium 3.7 (3.6-5.0) mmol/L Chloride 86.8 L (98-107) mmol/L Carbon Dioxide 20 L (22-30) mmol/L BUN 42 H (7-17) mg/dL Creatinine 3.5 H (0.7-1.2) mg/dL Glucose 88 (65-100) mg/dL Calcium 7.0 L (8.4-10.2) mg/dL - Imaging and Cardiology EKG: image reviewed - Allied health notes Allied health notes reviewed: RT
[2016-10-01] MEDS ORDERED: NACL 0.9% 1000 ML 2,000 ML ONE (14:30)
[2016-10-01] MEDS: HEPARIN IV PRN (14:54)
--- NOTE | 2016-10-01 18:05 | Progress Note ---
Assessment and Plan - Patient Problems (1) Fungemia Current Visit: Yes Status: Acute Plan to address problem: 1. Continue Micafungin. Anticipated course through ~2016. (2) Sepsis Current Visit: Yes Status: Acute Qualifiers: Sepsis type: sepsis due to unspecified organism Qualified Code(s): A41.9 - Sepsis, unspecified organism Plan to address problem: Continue current antimicrobials, including presumptive Flagyl and enteral Vancomycin (will resume). (3) Chronic renal insufficiency Current Visit: Yes Status: Acute Qualifiers: Chronic kidney disease stage: C Subjective Date of service: 10/01/16 Principal diagnosis: Acute resp failure on MVS; S/P Acute CVA; Acute Encephalopathy; JUANITA Interval history: Remains critically ill in ICU. Objective - Constitutional Vitals: Vital Signs Temp Pulse Resp BP Pulse Ox 98.9 F 127 H 30 H 118/74 100 10/01/16 16:51 10/01/16 17:15 10/01/16 14:02 10/01/16 17:15 10/01/16 17:15 Temperature -Last 24 Hours Temperature 98.9 F Temperature 98.9 F Temperature 97.6 F Temperature 97.6 F Temperature 98.7 F Temperature 97.7 F Temperature 99.6 F Temperature 99.6 F General appearance: Present: no acute distress, other (tracheostomy, FiO2 30%) - Neck Neck: supple, other (removed right IJ line) - Respiratory Respiratory: bilateral: rhonchi - Cardiovascular Rhythm: irregularly irregular (rate 120s) Extremity abnormal: edema (pedal edema bilat) - Gastrointestinal General gastrointestinal: Present: soft, non-distended, other ((+) PEG site) Rectal Exam: other (rectal tube in place) - Genitourinary Female genitourinary: other ([place] with dark urine noted) - Integumentary Integumentary: clear, no rash - Labs CBC & Chem 7: 10/01/16 06:00 10/01/16 06:00 Labs: Abnormal lab results 09/30/16 10/01/16 10/01/16 Range/Units 18:38 06:00 06:00 WBC 12.6 H (4.5-11.0) K/mm3 RBC 2.75 L (3.65-5.03) M/mm3 Hgb 7.3 L (10.1-14.3) gm/dl Hct 23.3 L (30.3-42.9) % MCH 27 L (28-32) pg RDW 20.6 H (13.2-15.2) % Plt Count 72 L (140-440) K/mm3 Seg Neuts % (Manual) 31.0 L (40.0-70.0) % Lymphocytes % (Manual) 8.0 L (13.4-35.0) % Nucleated RBC % 3.0 H (0.0-0.9) % Lymphocytes # (Manual) 1.0 L (1.2-5.4) K/mm3 Sodium 127 L (137-145) mmol/L Chloride 86.8 L (98-107) mmol/L Carbon Dioxide 20 L (22-30) mmol/L BUN 42 H (7-17) mg/dL Creatinine 3.5 H (0.7-1.2) mg/dL POC Glucose 122 H (70-105) Calcium 7.0 L (8.4-10.2) mg/dL 10/01/16 10/01/16 Range/Units 12:37 17:39 WBC (4.5-11.0) K/mm3 RBC (3.65-5.03) M/mm3 Hgb (10.1-14.3) gm/dl Hct (30.3-42.9) % MCH (28-32) pg RDW (13.2-15.2) % Plt Count (140-440) K/mm3 Seg Neuts % (Manual) (40.0-70.0) % Lymphocytes % (Manual) (13.4-35.0) % Nucleated RBC % (0.0-0.9) % Lymphocytes # (Manual) (1.2-5.4) K/mm3 Sodium (137-145) mmol/L Chloride (98-107) mmol/L Carbon Dioxide (22-30) mmol/L BUN (7-17) mg/dL Creatinine (0.7-1.2) mg/dL POC Glucose 65 L 107 H (70-105) Calcium (8.4-10.2) mg/dL Microbiology 09/29/16 Unknown Peripheral/Venous Blood Culture - Preliminary NO GROWTH AFTER 48 HOURS 09/30/16 07:13 Peripheral/Venous Blood Culture - Preliminary NO GROWTH AFTER 24 HOURS 09/23/16 16:55 Peripheral/Venous Blood Culture - Preliminary Silvia Albicans 09/23/16 16:55 Peripheral/Venous Blood Culture - Preliminary Silvia Albicans 09/23/16 16:30 Tracheal Aspirate Sputum Culture - Final 09/25/16 17:12 Peripheral/Venous Blood Fungal Culture - Preliminary Culture in Progress 09/25/16 17:12 Peripheral/Venous Blood Fungal Culture - Preliminary Culture in Progress 09/23/16 22:30 Urine,Catheterized - Indwelling Catheter Urine Culture - Final 09/13/16 10:30 Urine,[place] Urine Culture - Final NO GROWTH AFTER 48 HOURS 09/13/16 09:04 Peripheral/Venous Blood Culture - Final NO GROWTH AFTER 5 DAYS 09/13/16 08:39 Peripheral/Venous Blood Culture - Final NO GROWTH AFTER 5 DAYS 09/15/16 18:44 Stool Stool Occult Blood (HORTENCIA) - Final 09/13/16 14:06 Tracheal Aspirate Sputum Culture - Final 09/11/16 15:03 Stool C. difficile DNA Amplification - Final 09/10/16 10:58 Urine,Clean Catch Urine Culture - Preliminary NO GROWTH AFTER 48 HOURS 09/07/16 17:39 Tracheal Aspirate Sputum Culture - Final
[2016-10-01] MEDS: VANCOMYCIN PO FEEDTUBE SCH (21:06)
[2016-10-01] MEDS: MYCAMINE 100 MG in NACL 0.9% 100 ML IV SCH (21:10)
[2016-10-01] MEDS: D50W (25GM) Vial IV PRN (23:38)
[2016-10-02] MEDS: FLAGYL 500 MG/100 ML 500 MG/100 ML BAG IV SCH ×4 (00:56→17:00)
[2016-10-02] MEDS: HumuLIN R SUB-Q SCH ×4 (00:57→18:56)
[2016-10-02] MEDS: VANCOMYCIN PO FEEDTUBE SCH ×4 (00:58→18:58)
[2016-10-02] MEDS: REGLAN IV SCH ×5 (02:39→21:01)
[2016-10-02] MEDS: LEVOPHED DRIP 4 MG/NS 250 ML 4 MG/250 ML BAG IV SCH (08:01)
--- NOTE | 2016-10-02 09:31 | Progress Note ---
Assessment and Plan Assessment and plan: --Hyponatremia; significantly improved Dialysis is scheduled for today, nephrology following --Hypokalemia; replace per protocol and monitor levels --Hypomagnesemia; corrected --Acute hypoxic respiratory failure vent dependent/unable to wean s/p trach and PEG, continue PEG feeds --Paroxysmal A. fib, persistent RVR ,on amiodarone drip, Cardiology following --Chronic anticoagulation need to be started per cardiology, will consult neurology for recommendations --Anemia, status post multiple units of PRBC transfusion, closely monitor H&H and transfuse as needed --Hypotension/ septic shock on multiple pressors, titrate systolic blood pressures to more than 100 --Acute on chronic kidney disease stage III , worsening renal function , nephrology following Hemodialysis as needed --Acute large left MCA CVA status post TPA/encephalopathy, Aspirin/statin/ supportive care --Aspiration pneumonia, Continue vancomycin and Flagyl, ID following --Acute exacerbation of COPD;, Nebulizers tapering dose of steroids antibiotics and ventilatory support, pulmonary following --Anemia requiring blood transfusion; closely monitor H&H and transfuse as needed --2 diabetes mellitus; Accu-Chek sliding scale coverage and ADA diet and insulin as needed --Moderate to severe protein calorie malnutrition with albumin of 2.2, Nutritional supplements, tube feeding, supportive care --DVT prophylaxis with heparin --Full CODE STATUS I talked to son and the brother periodically and updated patient's condition and treatment plan They are aware of patient's poor prognosis Critical care time 31 minutes History Interval history: Patient seen and evaluated medical records reviewed No new events reported by nursing staff Remains critical, status post tracheostomy on vent Tachycardic on amiodarone drip, hypotensive on pressor Hospitalist Physical - Constitutional Vitals: Temp Pulse Resp BP Pulse Ox 98.3 F 106 H 35 H 97/49 100 10/02/16 08:00 10/02/16 09:19 10/02/16 08:00 10/02/16 08:00 10/02/16 08:00 General appearance: Present: no acute distress, cachectic, other (tracheostomy, FiO2 30%) - EENT Eyes: Present: PERRL, EOM intact - Neck Neck: Present: supple, normal ROM - Respiratory Respiratory effort: labored Respiratory: bilateral: diminished, rhonchi, negative: rales, wheezing - Cardiovascular Rhythm: irregularly irregular Heart Sounds: Present: S1 & S2 - Extremities Extremities: no ischemia - Abdominal General gastrointestinal: soft, non-tender, non-distended, hypoactive bowel sounds, other (PEG tube in place) - Integumentary Integumentary: Present: clear, warm - Psychiatric Psychiatric: other (noncommunicative) - Neurologic Neurologic: other (noncommunicative) Results - Labs CBC & Chem 7: 10/02/16 10:50 10/02/16 10:50 Labs: Laboratory Last Values WBC 12.6 K/mm3 (4.5-11.0) H 10/01/16 06:00 RBC 2.75 M/mm3 (3.65-5.03) L 10/01/16 06:00 Hgb 7.3 gm/dl (10.1-14.3) L 10/01/16 06:00 Hct 23.3 % (30.3-42.9) L 10/01/16 06:00 MCV 85 fl (79-97) 10/01/16 06:00 MCH 27 pg (28-32) L 10/01/16 06:00 MCHC 31 % (30-34) 10/01/16 06:00 RDW 20.6 % (13.2-15.2) H 10/01/16 06:00 Plt Count 72 K/mm3 (140-440) L 10/01/16 06:00 Lymph % (Auto) 6.9 % (13.4-35.0) L 09/21/16 07:45 [place] % (Auto) 9.4 % (0.0-7.3) H 09/21/16 07:45 Eos % (Auto) 0.3 % (0.0-4.3) 09/21/16 07:45 Baso % (Auto) 0.2 % (0.0-1.8) 09/21/16 07:45 Lymph # 0.9 K/mm3 (1.2-5.4) L 09/21/16 07:45 [place] # 1.3 K/mm3 (0.0-0.8) H 09/21/16 07:45 Eos # 0.0 K/mm3 (0.0-0.4) 09/21/16 07:45 Baso # 0.0 K/mm3 (0.0-0.1) 09/21/16 07:45 Add Manual Diff Complete 10/01/16 06:00 Total Counted 100 10/01/16 06:00 Seg Neutrophils % [place] 10/01/16 06:00 Seg Neuts % (Manual) 31.0 % (40.0-70.0) L 10/01/16 06:00 Band Neutrophils % 55.0 % 10/01/16 06:00 Lymphocytes % (Manual) 8.0 % (13.4-35.0) L 10/01/16 06:00 Reactive Lymphs % (Man) 1.0 % 10/01/16 06:00 Monocytes % (Manual) 5.0 % (0.0-7.3) 10/01/16 06:00 Eosinophils % (Manual) 0 % (0.0-4.3) 10/01/16 06:00 Basophils % (Manual) 0 % (0.0-1.8) 10/01/16 06:00 Metamyelocytes % 0 % 10/01/16 06:00 Myelocytes % 0 % 10/01/16 06:00 Promyelocytes % 0 % 10/01/16 06:00 Blast Cells % 0 % 10/01/16 06:00 Nucleated RBC % 3.0 % (0.0-0.9) H 10/01/16 06:00 Seg Neutrophils # 11.5 K/mm3 (1.8-7.7) H 09/21/16 07:45 Seg Neutrophils # Man 3.9 K/mm3 (1.8-7.7) 10/01/16 06:00 Band Neutrophils # 6.9 K/mm3 10/01/16 06:00 Lymphocytes # (Manual) 1.0 K/mm3 (1.2-5.4) L 10/01/16 06:00 Abs React Lymphs (Man) 0.1 K/mm3 10/01/16 06:00 Monocytes # (Manual) 0.6 K/mm3 (0.0-0.8) 10/01/16 06:00 Eosinophils # (Manual) 0.0 K/mm3 (0.0-0.4) 10/01/16 06:00 Basophils # (Manual) 0.0 K/mm3 (0.0-0.1) 10/01/16 06:00 Metamyelocytes # 0.0 K/mm3 10/01/16 06:00 Myelocytes # 0.0 K/mm3 10/01/16 06:00 Promyelocytes # 0.0 K/mm3 10/01/16 06:00 Blast Cells # 0.0 K/mm3 10/01/16 06:00 Pathologist Review 09/13/16 04:00 WBC Morphology Not Reportable 10/01/16 06:00 Hypersegmented Neuts Not Reportable 10/01/16 06:00 Hyposegmented Neuts Not Reportable 10/01/16 06:00 Hypogranular Neuts Not Reportable 10/01/16 06:00 Smudge Cells Not Reportable 10/01/16 06:00 Toxic Granulation Not Reportable 10/01/16 06:00 Toxic Vacuolation Not Reportable 10/01/16 06:00 Dohle Bodies 1+ 10/01/16 06:00 Pelger-Huet Anomaly Not Reportable 10/01/16 06:00 Jasmina Rods Not Reportable 10/01/16 06:00 Platelet Estimate Consistent w auto 10/01/16 06:00 Clumped Platelets Not Reportable 10/01/16 06:00 Plt Clumps, EDTA Not Reportable 10/01/16 06:00 Large Platelets Few 10/01/16 06:00 Giant Platelets Not Reportable 10/01/16 06:00 Platelet Satelliting Not Reportable 10/01/16 06:00 Plt Morphology Comment Not Reportable 10/01/16 06:00 RBC Morphology Not Reportable 10/01/16 06:00 Dimorphic RBCs Not Reportable 10/01/16 06:00 Polychromasia Not Reportable 10/01/16 06:00 Hypochromasia Few 10/01/16 06:00 Poikilocytosis Not Reportable 10/01/16 06:00 Anisocytosis 1+ 10/01/16 06:00 Microcytosis Not Reportable 10/01/16 06:00 Macrocytosis Not Reportable 10/01/16 06:00 Spherocytes Not Reportable 10/01/16 06:00 Pappenheimer Bodies Not Reportable 10/01/16 06:00 Sickle Cells Not Reportable 10/01/16 06:00 Target Cells Not Reportable 10/01/16 06:00 Tear Drop Cells Not Reportable 10/01/16 06:00 Ovalocytes Not Reportable 10/01/16 06:00 Helmet Cells Not Reportable 10/01/16 06:00 [place] Bodies Not Reportable 10/01/16 06:00 [place] Rings Not Reportable 10/01/16 06:00 Chuck Cells Not Reportable 10/01/16 06:00 Bite Cells Not Reportable 10/01/16 06:00 Crenated Cell Not Reportable 10/01/16 06:00 Elliptocytes Not Reportable 10/01/16 06:00 Acanthocytes (Spur) Not Reportable 10/01/16 06:00 Rouleaux Not Reportable 10/01/16 06:00 Hemoglobin C Crystals Not Reportable 10/01/16 06:00 Schistocytes Not Reportable 10/01/16 06:00 Malaria parasites Not Reportable 10/01/16 06:00 ESR > 140.0 mm/Hr (0-20) 09/08/16 11:48 Jun Bodies Not Reportable 10/01/16 06:00 Hem Pathologist Commnt No 10/01/16 06:00 PT 13.8 Sec. (12.2-14.9) 09/15/16 05:00 INR 1.01 (0.87-1.13) 09/15/16 05:00 APTT 24.4 Sec. (24.2-36.6) 09/15/16 05:00 Thrombin Time 16.8 Sec. (15.1-19.6) 09/03/16 00:10 Fibrinogen 750 mg/dl (211-480) H 09/08/16 11:48 Lupus Anticoagulant see below 09/12/16 09:59 LA PTT Baseline See scanned report 09/12/16 09:59 dRVVT Confirm Interp Positive (Negative) H 09/12/16 09:59 dRVVT Screen 50:50 See scanned report 09/12/16 09:59 dRVVT Mix Interpret See scanned report 09/12/16 09:59 Protein C Antigen 122 % (70-140) 09/08/16 15:35 Free Protein S 97 % normal (50-147) 09/08/16 15:35 Total Protein S 109 % (70-140) 09/08/16 15:35 Antithrombin III Ag 100 % (80-120) 09/08/16 15:35 Factor V Activity 182 % (65-150) H 09/08/16 15:35 POC ABG pH 7.479 (7.35-7.45) H 09/30/16 13:39 POC ABG pCO2 29.8 (35-45) L 09/30/16 13:39 POC ABG pO2 117 (80-105) H 09/30/16 13:39 POC ABG HCO3 22.2 09/30/16 13:39 POC ABG Total CO2 23 09/30/16 13:39 POC ABG O2 Sat 99 09/30/16 13:39 POC ABG Base Excess -1 09/30/16 13:39 FiO2 40 % 09/30/16 13:39 Sodium 127 mmol/L (137-145) L 10/01/16 06:00 Potassium 3.7 mmol/L (3.6-5.0) 10/01/16 06:00 Chloride 86.8 mmol/L (98-107) L 10/01/16 06:00 Carbon Dioxide 20 mmol/L (22-30) L 10/01/16 06:00 Anion Gap 24 mmol/L 10/01/16 06:00 BUN 42 mg/dL (7-17) H 10/01/16 06:00 Creatinine 3.5 mg/dL (0.7-1.2) H 10/01/16 06:00 Estimated GFR 17 ml/min 10/01/16 06:00 BUN/Creatinine Ratio 12.00 % 10/01/16 06:00 Glucose 88 mg/dL (65-100) 10/01/16 06:00 POC Glucose 86 (70-105) 10/02/16 05:28 Osmolality 351 Mosm/kg 09/16/16 11:47 Lactic Acid 4.50 mmol/L (0.7-2.0) H* 09/28/16 07:25 Calcium 7.0 mg/dL (8.4-10.2) L 10/01/16 06:00 Phosphorus 4.60 mg/dL (2.5-4.5) H 09/25/16 04:20 Magnesium 1.90 mg/dL (1.7-2.3) 10/01/16 06:00 Total Bilirubin 1.20 mg/dL (0.1-1.2) 09/29/16 06:45 Direct Bilirubin 0.9 mg/dL (0-0.2) H 09/29/16 06:45 Indirect Bilirubin 0.3 mg/dL 09/29/16 06:45 AST 24 units/L (5-40) 09/29/16 06:45 ALT 16 units/L (7-56) 09/29/16 06:45 Alkaline Phosphatase 72 units/L (35-129) 09/29/16 06:45 Ammonia 27.0 umol/L (25-60) 09/07/16 08:37 Total Creatine Kinase 121 units/L (30-135) 09/29/16 20:12 CK-MB (CK-2) < 1.0 ng/mL (0.0-4.0) 09/29/16 20:12 CK-MB (CK-2) Rel Index 0.8 (0-4) 09/29/16 20:12 Troponin T 0.204 ng/mL (0.00-0.029) H* 09/29/16 20:12 C-Reactive Protein 3.20 mg/dL (0.00-1.30) H 09/23/16 05:00 Total Protein 4.3 g/dL (6.3-8.2) L 09/29/16 06:45 Albumin 1.3 g/dL (3.9-5) L 09/29/16 06:45 Albumin/Globulin Ratio 0.4 % 09/29/16 06:45 Triglycerides 137 mg/dL (2-149) 09/29/16 20:12 Cholesterol 31 mg/dL (50-199) L 09/29/16 20:12 LDL Cholesterol Direct 4 mg/dL (50-130) L 09/29/16 20:12 HDL Cholesterol 3 mg/dL (40-59) L 09/29/16 20:12 Cholesterol/HDL Ratio 10.33 % 09/29/16 20:12 Angiotensin Convert Enz See scanned report 09/08/16 11:48 TSH 1.010 mlU/mL (0.270-4.200) 09/07/16 08:37 HCG, Qual Negative (Negative) 09/03/16 00:10 Urine Color Yellow (Yellow) 09/09/16 14:13 Urine Turbidity Slightly-cloudy (Clear) 09/09/16 14:13 Urine pH 5.0 (5.0-7.0) 09/09/16 14:13 Ur Specific [place] 1.012 (1.003-1.030) 09/09/16 14:13 Urine Protein 30 mg/dl mg/dL (Negative) 09/09/16 14:13 Urine Glucose (UA) Neg mg/dL (Negative) 09/09/16 14:13 Urine Ketones Neg mg/dL (Negative) 09/09/16 14:13 Urine Blood Lg (Negative) 09/09/16 14:13 Urine Nitrite Neg (Negative) 09/09/16 14:13 Urine Bilirubin Neg (Negative) 09/09/16 14:13 Urine Urobilinogen < 2.0 mg/dL (<2.0) 09/09/16 14:13 Ur Leukocyte Esterase Sm (Negative) 09/09/16 14:13 Urine WBC (Auto) 25.0 /HPF (0.0-6.0) H 09/09/16 14:13 Urine RBC (Auto) > 182.0 /HPF (0.0-6.0) 09/09/16 14:13 Urine Bacteria (Auto) 1+ /HPF (Negative) 09/09/16 14:13 Urine WBC Clumps 2+ /HPF 09/07/16 02:47 Hyaline Casts 4 /LPF 09/07/16 02:47 Urine Mucus Few /HPF 09/09/16 14:13 Urine Eosinophils None seen (None Seen) 09/07/16 16:00 Urine Total Volume 1350 09/21/16 12:00 Urine Creatinine 54.8 mg/dL (0.1-20.0) H 09/21/16 12:00 Height (in) 67.0 inches 09/21/16 12:00 Weight (lb) 92.0 lbs 09/21/16 12:00 Creatinine Clearance 15 09/21/16 12:00 Urine Sodium 36 mEq/L 09/16/16 19:19 Urine Total Protein 16 mg/dL (5-11.8) H 09/16/16 19:19 Vancomycin Trough 2.3 ug/mL (5.0-20.0) L 09/21/16 13:00 Random Vancomycin 2.3 ug/mL (0-40.0) 09/09/16 03:00 Urine Opiates Screen Presumptive negative 09/03/16 15:11 Urine Methadone Screen Presumptive positive 09/03/16 15:11 Ur Barbiturates Screen Presumptive positive 09/03/16 15:11 Ur Phencyclidine Scrn Presumptive negative 09/03/16 15:11 Ur Amphetamines Screen Presumptive negative 09/03/16 15:11 U Benzodiazepines Scrn Presumptive negative 09/03/16 15:11 Urine Cocaine Screen Presumptive negative 09/03/16 15:11 U Marijuana (THC) Screen Presumptive positive 09/03/16 15:11 Drugs of Abuse Note Disclamer 09/03/16 15:11 Rheumatoid Factor 24 IU/ml (0-13) H 09/08/16 11:48 SAHIL Screen Negative (Negative) 09/07/16 09:20 Proteinase 3 (PR3) Ab <1.0 AI (<1.0) 09/07/16 09:20 Myeloperoxidase Ab <1.0 AI (<1.0) 09/07/16 09:20 Sjogren's Antibody <1.0 AI (<1.0) 09/08/16 15:35 Scl-70 Scleroderma Ab <1.0 AI (<1.0) 09/08/16 15:35 Centromere B Antibody <1.0 AI (<1.0) 09/08/16 12:02 Cardiolipid IgG Ab <14 GPL (<=14) 09/12/16 09:59 Cardiolipid IgA Ab <11 APL (<=11) 09/12/16 09:59 Cardiolipid IgM Ab <12 MPL (<=12) 09/12/16 09:59 Complement C3 148 mg/dL (90-180) 09/07/16 09:20 Complement C4 58 mg/dL (16-47) H 09/07/16 09:20 RPR Nonreactive (Nonreactive) 09/08/16 11:48 Hepatitis A IgM Ab Non-reactive (NonReactive) 09/24/16 14:40 Hep Bs Antigen Non-reactive (Negative) 09/24/16 14:40 Hep B Core IgM Ab Non-reactive (NonReactive) 09/24/16 14:40 Hepatitis C Antibody Non-reactive (NonReactive) 09/24/16 14:40 HIV 1&2 Antibody Rapid Non react (Non React) 09/08/16 11:48 HIV P24 Antigen Non react (Non React) 09/08/16 11:48 Blood Type A POSITIVE 09/25/16 10:30 Antibody Screen TNR 09/25/16 10:30 DELORIS Antibody Screen Negative 09/25/16 10:30 Crossmatch See Detail 09/25/16 10:30
--- NOTE | 2016-10-02 10:12 | Progress Note ---
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 * Acute hypoxic respiratory failure * Left renal artery stenosis * Metabolic acidosis - improved * Anemia * Hyponatremia - multifactorial Plan: * Patient is s/p HD yesterday * Pressors prn MAP>65 * Rate control per cardiology * Transfusion of pRBC per primary team * Abx/antifungal per ID * Vent management per critical care * Dose medications for renal function * Avoid potential nephrotoxins Subjective Date of service: 10/02/16 Principal diagnosis: Acute resp failure on MVS; S/P Acute CVA; Acute Encephalopathy; JUANITA Interval history: No acute events overnight. Objective - Vital Signs Vital signs: Vital Signs - 12hr 10/01/16 10/01/16 10/01/16 22:30 23:00 23:30 Temperature Pulse Rate 115 H 115 H 123 H Pulse Rate [ From Monitor] Respiratory 26 H 24 28 H Rate Blood Pressure 98/50 95/47 95/57 O2 Sat by Pulse 100 100 100 Oximetry O2 Sat by Pulse Oximetry [ Assessment] 10/01/16 10/02/16 10/02/16 23:58 00:00 00:04 Temperature 100.5 F H Pulse Rate 108 H 112 H Pulse Rate [ 115 H From Monitor] Respiratory 29 H 30 H Rate Blood Pressure 96/47 96/47 O2 Sat by Pulse 100 100 Oximetry O2 Sat by Pulse Oximetry [ Assessment] 10/02/16 10/02/16 10/02/16 00:10 00:23 00:26 Temperature Pulse Rate 119 H Pulse Rate [ 120 H From Monitor] Respiratory 26 H Rate Blood Pressure 95/54 O2 Sat by Pulse 99 99 Oximetry O2 Sat by Pulse 100 Oximetry [ Assessment] 10/02/16 10/02/16 10/02/16 00:30 01:00 01:30 Temperature Pulse Rate 126 H 110 H 114 H Pulse Rate [ From Monitor] Respiratory 31 H 31 H 29 H Rate Blood Pressure 83/43 96/40 91/47 O2 Sat by Pulse 100 100 100 Oximetry O2 Sat by Pulse Oximetry [ Assessment] 10/02/16 10/02/16 10/02/16 02:00 02:30 03:00 Temperature Pulse Rate 103 H 95 H 96 H Pulse Rate [ From Monitor] Respiratory 33 H 22 24 Rate Blood Pressure 89/50 87/41 89/41 O2 Sat by Pulse 100 100 100 Oximetry O2 Sat by Pulse Oximetry [ Assessment] 10/02/16 10/02/16 10/02/16 03:30 04:00 04:30 Temperature 99.1 F Pulse Rate 90 108 H 88 Pulse Rate [ From Monitor] Respiratory 26 H 29 H 26 H Rate Blood Pressure 85/44 105/44 79/38 O2 Sat by Pulse 100 100 100 Oximetry O2 Sat by Pulse Oximetry [ Assessment] 10/02/16 10/02/16 10/02/16 04:40 05:00 05:30 Temperature Pulse Rate 128 H 122 H 125 H Pulse Rate [ From Monitor] Respiratory 30 H 30 H Rate Blood Pressure 79/38 145/68 128/75 O2 Sat by Pulse 100 98 100 Oximetry O2 Sat by Pulse Oximetry [ Assessment] 10/02/16 10/02/16 10/02/16 06:00 06:30 07:00 Temperature Pulse Rate 126 H 118 H 124 H Pulse Rate [ From Monitor] Respiratory 21 29 H 30 H Rate Blood Pressure 98/56 99/54 87/48 O2 Sat by Pulse 100 98 97 Oximetry O2 Sat by Pulse Oximetry [ Assessment] 10/02/16 10/02/16 10/02/16 07:30 07:38 08:00 Temperature 98.3 F Pulse Rate 116 H 119 H 119 H Pulse Rate [ From Monitor] Respiratory 33 H 33 H 35 H Rate Blood Pressure 88/41 88/41 97/49 O2 Sat by Pulse 98 99 100 Oximetry O2 Sat by Pulse Oximetry [ Assessment] 10/02/16 09:19 Temperature Pulse Rate 106 H Pulse Rate [ From Monitor] Respiratory Rate Blood Pressure O2 Sat by Pulse Oximetry O2 Sat by Pulse Oximetry [ Assessment] - General Appearance General appearance: well-developed, well-nourished, intubated (trach) EENT: ATNC Respiratory: Present: Other (coarse breath sounds) Cardiology: regular, S1S2 Gastrointestinal: no tenderness, no distended, obese Integumentary: no rash Musculoskeletal: other (+edema) - Lab 10/02/16 10:50 10/02/16 10:50 Most recent lab results Calcium 7.0 mg/dL (8.4-10.2) L 10/01/16 06:00 Phosphorus 4.60 mg/dL (2.5-4.5) H 09/25/16 04:20 Magnesium 1.90 mg/dL (1.7-2.3) 10/01/16 06:00 Urine Creatinine 54.8 mg/dL (0.1-20.0) H 09/21/16 12:00 Urine Sodium 36 mEq/L 09/16/16 19:19 Urine Total Protein 16 mg/dL (5-11.8) H 09/16/16 19:19
[2016-10-02] MEDS: ASPIRIN PO SCH (10:13)
[2016-10-02] MEDS: PROTONIX IV SCH ×2 (10:13→21:01)
--- NOTE | 2016-10-02 10:20 | Progress Note ---
Assessment and Plan Hypoxic respiratory failure on mechanical ventilation s/p trach and PEG S/P left MCA CVA echocardiogram demonstrates at least moderate LVH but a normal LV systolic function, EF 50-55%. no thrombus visualized on transthoracic echocardiogram. Acute on chronic renal failure Leukocytosis/Fever Fungemia Diabetes mellitus Anemia requiring transfusion of PRBCs Persistent Afib Rate moderately controlled on IV amiodarone. s/p failed cardioversion on 09/25 Recommend:. Continue IV amiodarone - will accept resting heart rates < 120. Subjective Date of service: 10/02/16 Principal diagnosis: Acute resp failure on MVS; S/P Acute CVA; Acute Encephalopathy; JUANITA Interval history: No acute events. Remains in AF with ventricular rate in low 100s. Objective Vital Signs Temp Pulse Pulse Resp BP Pulse Ox Pulse Ox 10/02/16 09:19 106 H 10/02/16 08:00 98.3 F 119 H 35 H 97/49 100 10/02/16 07:38 119 H 33 H 88/41 99 10/02/16 07:30 116 H 33 H 88/41 98 10/02/16 07:00 124 H 30 H 87/48 97 10/02/16 06:30 118 H 29 H 99/54 98 10/02/16 06:00 126 H 21 98/56 100 10/02/16 05:30 125 H 30 H 128/75 100 10/02/16 05:00 122 H 30 H 145/68 98 10/02/16 04:40 128 H 79/38 100 10/02/16 04:30 88 26 H 79/38 100 10/02/16 04:00 99.1 F 108 H 29 H 105/44 100 10/02/16 03:30 90 26 H 85/44 100 10/02/16 03:00 96 H 24 89/41 100 10/02/16 02:30 95 H 22 87/41 100 10/02/16 02:00 103 H 33 H 89/50 100 10/02/16 01:30 114 H 29 H 91/47 100 10/02/16 01:00 110 H 31 H 96/40 100 10/02/16 00:30 126 H 31 H 83/43 100 10/02/16 00:26 100 10/02/16 00:23 119 H 95/54 99 10/02/16 00:10 120 H 26 H 99 10/02/16 00:04 112 H 30 H 96/47 100 10/02/16 00:00 108 H 115 H 29 H 96/47 100 10/01/16 23:58 100.5 F H 10/01/16 23:30 123 H 28 H 95/57 100 10/01/16 23:00 115 H 24 95/47 100 10/01/16 22:30 115 H 26 H 98/50 100 10/01/16 22:00 119 H 31 H 94/52 100 10/01/16 21:30 118 H 30 H 114/61 100 10/01/16 21:00 129 H 29 H 97/48 100 10/01/16 20:30 115 H 35 H 100/43 100 10/01/16 20:00 99.9 F H 122 H 115 H 44 H 97/49 100 10/01/16 19:56 116 H 101/51 100 10/01/16 19:30 129 H 45 H 98/48 100 10/01/16 19:00 129 H 44 H 89/40 100 10/01/16 18:30 130 H 43 H 101/45 100 10/01/16 18:00 138 H 111/80 100 10/01/16 17:30 138 H 16 109/64 100 10/01/16 17:15 127 H 118/74 100 10/01/16 17:14 100 10/01/16 17:00 98.9 F 132 H 29 H 118/74 100 10/01/16 16:45 128 H 105/63 10/01/16 16:30 133 H 30 H 112/57 100 10/01/16 16:15 128 H 112/57 10/01/16 16:00 98.9 F 137 H 28 H 110/62 100 10/01/16 15:45 125 H 109/60 10/01/16 15:30 132 H 23 109/52 100 10/01/16 15:15 125 H 101/56 10/01/16 15:00 135 H 19 110/60 100 10/01/16 14:45 124 H 119/64 10/01/16 14:30 130 H 32 H 117/68 100 10/01/16 14:15 115 H 109/62 10/01/16 14:02 97.6 F 118 H 30 H 114/71 10/01/16 14:00 113 H 29 H 120/60 100 10/01/16 13:30 117 H 30 H 114/71 100 10/01/16 13:00 103 H 28 H 113/54 100 10/01/16 12:30 97 H 25 H 110/60 100 10/01/16 12:00 97.6 F 97 H 28 H 101/59 100 10/01/16 11:49 98 H 107/66 100 10/01/16 11:30 95 H 24 107/66 100 10/01/16 11:00 97 H 26 H 123/58 100 10/01/16 10:30 96 H 26 H 124/63 100 Pulse Ox Pulse Ox 10/02/16 09:19 10/02/16 08:00 10/02/16 07:38 10/02/16 07:30 10/02/16 07:00 10/02/16 06:30 10/02/16 06:00 10/02/16 05:30 10/02/16 05:00 10/02/16 04:40 10/02/16 04:30 10/02/16 04:00 10/02/16 03:30 10/02/16 03:00 10/02/16 02:30 10/02/16 02:00 10/02/16 01:30 10/02/16 01:00 10/02/16 00:30 10/02/16 00:26 10/02/16 00:23 10/02/16 00:10 10/02/16 00:04 10/02/16 00:00 10/01/16 23:58 10/01/16 23:30 10/01/16 23:00 10/01/16 22:30 10/01/16 22:00 10/01/16 21:30 10/01/16 21:00 10/01/16 20:30 10/01/16 20:00 10/01/16 19:56 10/01/16 19:30 10/01/16 19:00 10/01/16 18:30 10/01/16 18:00 10/01/16 17:30 10/01/16 17:15 10/01/16 17:14 10/01/16 17:00 10/01/16 16:45 10/01/16 16:30 10/01/16 16:15 10/01/16 16:00 10/01/16 15:45 10/01/16 15:30 10/01/16 15:15 10/01/16 15:00 10/01/16 14:45 10/01/16 14:30 10/01/16 14:15 10/01/16 14:02 100 100 10/01/16 14:00 10/01/16 13:30 10/01/16 13:00 10/01/16 12:30 10/01/16 12:00 10/01/16 11:49 10/01/16 11:30 10/01/16 11:00 10/01/16 10:30 - Physical Examination General: Other (intubated via trach) Neck: Positive: neck supple Cardiac: Positive: irregularly irregular Lungs: Positive: clear to auscultation Abdomen: Positive: Soft, Active Bowel Sounds Extremities: Absent: edema - Imaging and Cardiology EKG: image reviewed - Allied health notes Allied health notes reviewed: RT
--- NOTE | 2016-10-02 10:22 | Progress Note ---
Assessment and Plan 1. Gastric outflow obstruction - with failure to tolerate TF, and with high gastric output. Consistent with ileus from severe medical illness. Obstructive process possible but less likely. Pt has not responded to Reglan, etc. Unfortunately, this is likely a physiologic problem, and may be best addressed by placing G-J tube via IR, so jejunal feeding can be delivered distally. Prior to that, would do radiologic study to exclude obstruction, and this can be done at same time as conversion to G-J tube if desired. Otherwise, if no obstruction, GI dysmotility would likely require improvement of medical condition, and optimization of labs and meds in order to reestablish normal GI motility. - continue PPI - would, if desired, consult IR for G-tube study with UGI to ensure small bowel patency, and then G-J tube placement. No further GI recommendations. Thanks. Discussed with Dr. Means. Subjective Date of service: 10/02/16 Principal diagnosis: Acute resp failure on MVS; S/P Acute CVA; Acute Encephalopathy; JUANITA Interval history: Asked to revisit pt for increased G-tube output, with inability to feed pt. Pt initially seen in consultation on 09/16/16. She was admitted with L MCA CVA on , and has shown no significant improvement. She is critically ill with multi-organ failure. Over the last 2 days, pt has had upto 5 l bilious output from the G-tube. Fecal tube shows watery greenish liquid in tubing. Objective - Constitutional Vitals: Vital Signs - 12hr 10/01/16 10/01/16 10/01/16 22:30 23:00 23:30 Temperature Pulse Rate 115 H 115 H 123 H Pulse Rate [ From Monitor] Respiratory 26 H 24 28 H Rate Blood Pressure 98/50 95/47 95/57 O2 Sat by Pulse 100 100 100 Oximetry O2 Sat by Pulse Oximetry [ Assessment] 10/01/16 10/02/16 10/02/16 23:58 00:00 00:04 Temperature 100.5 F H Pulse Rate 108 H 112 H Pulse Rate [ 115 H From Monitor] Respiratory 29 H 30 H Rate Blood Pressure 96/47 96/47 O2 Sat by Pulse 100 100 Oximetry O2 Sat by Pulse Oximetry [ Assessment] 10/02/16 10/02/16 10/02/16 00:10 00:23 00:26 Temperature Pulse Rate 119 H Pulse Rate [ 120 H From Monitor] Respiratory 26 H Rate Blood Pressure 95/54 O2 Sat by Pulse 99 99 Oximetry O2 Sat by Pulse 100 Oximetry [ Assessment] 10/02/16 10/02/16 10/02/16 00:30 01:00 01:30 Temperature Pulse Rate 126 H 110 H 114 H Pulse Rate [ From Monitor] Respiratory 31 H 31 H 29 H Rate Blood Pressure 83/43 96/40 91/47 O2 Sat by Pulse 100 100 100 Oximetry O2 Sat by Pulse Oximetry [ Assessment] 10/02/16 10/02/16 10/02/16 02:00 02:30 03:00 Temperature Pulse Rate 103 H 95 H 96 H Pulse Rate [ From Monitor] Respiratory 33 H 22 24 Rate Blood Pressure 89/50 87/41 89/41 O2 Sat by Pulse 100 100 100 Oximetry O2 Sat by Pulse Oximetry [ Assessment] 10/02/16 10/02/16 10/02/16 03:30 04:00 04:30 Temperature 99.1 F Pulse Rate 90 108 H 88 Pulse Rate [ From Monitor] Respiratory 26 H 29 H 26 H Rate Blood Pressure 85/44 105/44 79/38 O2 Sat by Pulse 100 100 100 Oximetry O2 Sat by Pulse Oximetry [ Assessment] 10/02/16 10/02/16 10/02/16 04:40 05:00 05:30 Temperature Pulse Rate 128 H 122 H 125 H Pulse Rate [ From Monitor] Respiratory 30 H 30 H Rate Blood Pressure 79/38 145/68 128/75 O2 Sat by Pulse 100 98 100 Oximetry O2 Sat by Pulse Oximetry [ Assessment] 10/02/16 10/02/16 10/02/16 06:00 06:30 07:00 Temperature Pulse Rate 126 H 118 H 124 H Pulse Rate [ From Monitor] Respiratory 21 29 H 30 H Rate Blood Pressure 98/56 99/54 87/48 O2 Sat by Pulse 100 98 97 Oximetry O2 Sat by Pulse Oximetry [ Assessment] 10/02/16 10/02/16 10/02/16 07:30 07:38 08:00 Temperature 98.3 F Pulse Rate 116 H 119 H 119 H Pulse Rate [ From Monitor] Respiratory 33 H 33 H 35 H Rate Blood Pressure 88/41 88/41 97/49 O2 Sat by Pulse 98 99 100 Oximetry O2 Sat by Pulse Oximetry [ Assessment] 10/02/16 09:19 Temperature Pulse Rate 106 H Pulse Rate [ From Monitor] Respiratory Rate Blood Pressure O2 Sat by Pulse Oximetry O2 Sat by Pulse Oximetry [ Assessment] General appearance: Present: no acute distress, other (Intubated, responds to pain) - EENT Eyes: PERRL - Respiratory Respiratory effort: other (on ventilatory via Trach) Respiratory: bilateral: CTA (anteriorly) - Cardiovascular Rhythm: regular Heart Sounds: Present: S1 & S2 - Gastrointestinal General gastrointestinal: Present: soft, non-tender, other (Decreased BS, G- tube in place with clean site.) - Labs CBC & Chem 7: 10/01/16 06:00 10/01/16 06:00 Labs: Abnormal lab results 10/01/16 10/01/16 10/01/16 Range/Units 12:37 17:39 23:32 POC Glucose 65 L 107 H 52 L (70-105) 10/02/16 Range/Units 00:59 POC Glucose 145 H (70-105)
[2016-10-02 11:14] LABS: Hematocrit 23.6 % (30.3-42.9); Hemoglobin 7.4 gm/dl (10.1-14.3); Mean Corpuscular HGB Conc 32 % (30-34); Mean Corpuscular Hemoglobin 27 pg (28-32); Mean Corpuscular Volume 86 fl (79-97); Red Blood Count 2.76 M/mm3 (3.65-5.03)
[2016-10-02 11:24] LABS: Platelet Count 79 K/mm3 (140-440); Red Cell Distribution Width 20.2 % (13.2-15.2)
--- NOTE | 2016-10-02 11:27 | Consultation ---
History of Present Illness - Reason for Consult Consult date: 10/02/16 stroke - History of Present Illness at the bedside discussed with staff nurse a number of general issues ie multi organ failure evidence on deep coma dysconjugate gaze w/o any evidence of arousal no spontaneous limb movement likely additional strokes given the nature of the overlaping problems ... no family here to discuss with Past History Past Medical History: diabetes, hypertension, renal failure, other (Medical noncompliance) Past Surgical History: cholecystectomy (per chart review) Social history: other (per chart review, family denied any smoking or alcohol history on admission). denies: smoking, alcohol abuse, prescription drug abuse , IV drug use Family history: hypertension (per chart review) Medications and Allergies Allergies Allergy/AdvReac Type Severity Reaction Status Date / Time No Known Allergies Allergy Verified 04/14/15 06:02 Home Medications Medication Instructions Recorded Confirmed Last Taken Type Acetaminophen [Tylenol Arthritis] 650 mg PO QID PRN #30 tablet.er 02/15/1609/12 Unknown Rx Albuterol Sulfate [Proventil HFA] 6.7 gm INHALATION Q4-6H 02/15/16 09/12/16 History Insulin Glargine [Lantus VIAL] 30 units SQ QHS 02/15/16 09/12/16 02/15/16 History Clonidine HCl [Catapres] 0.3 mg PO TID #90 tablet 06/15/16 09/12/16 Unknown Rx Lisinopril [Zestril] 40 mg PO BID #60 tablet 06/15/16 09/12/16 Unknown Rx Polyethylene Glycol 3350 [Miralax 17 gm PO QDAY PRN #10 packet 06/15/16 Unknown Rx 3350] Albuterol 2 inhalation INHALATION Q4HR PRN 09/12/16 09/12/16 Unknown History AtorvaSTATin [Lipitor] 20 mg PO QHS 09/12/16 09/12/16 Unknown History Flovent 110 MCG/PUFF HFA 1 inhalation INHALATION QHS 09/12/16 09/12/16 Unknown History Furosemide [Lasix] 20 mg PO QDAY 09/12/16 09/12/16 Unknown History HumaLOG VIAL 45 units SUB-Q TID 09/12/16 09/12/16 Unknown History Insulin Aspart [NovoLOG Flexpen] 30 units SUB-Q TID MDD 30 Units 09/12/16 Unknown History Labetalol HCl 300 mg PO BID 09/12/16 09/12/16 Unknown History Spironolactone [Aldactone] 25 mg PO QDAY 09/12/16 09/12/16 Unknown History hydrALAZINE [Apresoline] 25 mg PO BID 09/12/16 09/12/16 Unknown History Active Meds: Active Medications Lipase/Protease/Amylase (Mary Reza 10,500 Unit) 1 each FEEDTUBE PRN PRN PRN Reason: For Clogged Feeding Tube Aspirin (Aspirin) 325 mg PO QDAY [facility] Last Admin: 10/02/16 10:13 Dose: 325 mg Atorvastatin Calcium (Lipitor) 40 mg PO QHS [facility] Last Admin: 10/01/16 21:07 Dose: 40 mg Dextrose (D50w (25gm)) 50 gm IV PRN PRN PRN Reason: hypoglycemia Last Admin: 10/01/16 23:38 Dose: 50 gm Haloperidol Lactate (Haldol) 5 mg IV Q6H PRN PRN Reason: Unrespon. to mult. doses BZD's Last Admin: 09/16/16 16:42 Dose: 5 mg Heparin Sodium (Porcine) (Heparin) 5,000 unit IV KERWIN PRN PRN Reason: hemodialysis Last Admin: 10/01/16 14:54 Dose: 5,000 unit Hydralazine HCl (Apresoline) 10 mg IV Q6H PRN PRN Reason: SBP > 160 Last Admin: 09/21/16 16:13 Dose: 10 mg Hydrophilic Ointment (Vaseline Lip Therapy) 1 applic TP Q2HR PRN PRN Reason: Dry Lips Last Admin: 09/17/16 22:20 Dose: 1 applic Phenylephrine HCl 100 mg/ (Sodium Chloride) 100 mls @ 3 mls/hr IV TITR AGUSTIN; 50 MCG/MIN PRN Reason: Protocol Last Titration: 09/29/16 08:10 Dose: 0 mcg/min, 0 mls/hr Vasopressin 20 unit/ Sodium (Chloride) 101 mls @ 9.09 mls/hr IV TITR AGUSTIN; 0.03 UNITS/MIN PRN Reason: Protocol Last Titration: 09/30/16 14:30 Dose: 0 units/min, 0 mls/hr Fentanyl Citrate (Fentanyl Drip Premix) 2,000 mcg in 100 mls @ 4.37 mls/hr IV TITR AGUSTIN; 1 MCG/KG/HR PRN Reason: Protocol Last Titration: 09/25/16 03:37 Dose: 0 mcg/kg/hr, 0 mls/hr Norepinephrine (Levophed Drip 4 Mg/Ns 250 Ml) 4 mg in 250 mls @ 7.5 mls/hr IV TITR AGUSTIN; 2 MCG/MIN PRN Reason: Protocol Last Admin: 10/02/16 08:01 Dose: 5 mcg/min, 18.75 mls/hr Amiodarone HCl 900 mg/ (Dextrose) 500 mls @ 16.66 mls/hr IV DIRECT AGUSTIN; 0.5 MG/MIN PRN Reason: Protocol Last Admin: 09/30/16 12:10 Dose: 0.5 mg/min, 16.66 mls/hr Metronidazole (Flagyl 500 Mg/100 Ml) 500 mg in 100 mls @ 100 mls/hr IV Q8H AGUSTIN Last Admin: 10/02/16 08:00 Dose: 100 mls/hr Micafungin Sodium 100 mg/ (Sodium Chloride) 100 mls @ 100 mls/hr IV Q24H AGUSTIN PRN Reason: Protocol Last Admin: 10/01/16 21:10 Dose: 100 mls/hr Sodium Chloride (Nacl 0.9%) 100 mls @ 999 mls/hr IV KERWIN PRN PRN Reason: Hypotension Insulin Human Regular (Novolin R) 0 units SUB-Q Q6HR AGUSTIN PRN Reason: Protocol Last Admin: 10/02/16 00:57 Dose: Not Given Labetalol HCl (Normodyne) 20 mg IV Q4H PRN PRN Reason: For BP >160/100 Last Admin: 09/21/16 15:26 Dose: 20 mg Lorazepam (Ativan) 2 mg IV Q4H PRN PRN Reason: Agitation Last Admin: 09/18/16 17:47 Dose: 2 mg Metoclopramide HCl (Reglan) 5 mg IV Q6H AGUSTIN Last Admin: 10/02/16 10:13 Dose: 5 mg Metoprolol Tartrate (Lopressor) 2.5 mg IV Q4H PRN PRN Reason: HR >130 Last Admin: 10/01/16 01:50 Dose: 2.5 mg Multi-Ingred Cream/Lotion/Oil/Oint (Artificial Tears Ophth Oint) 1 applic OU Q4HR PRN PRN Reason: Dry Eye(s) Ondansetron HCl (Zofran) 4 mg IV Q8H PRN PRN Reason: N/V unrelieved by Reglan Last Admin: 09/22/16 09:43 Dose: 4 mg Pantoprazole Sodium (Protonix) 40 mg IV BID [facility] Last Admin: 10/02/16 10:13 Dose: 40 mg Simple Syrup (Simple Syrup) 30 ml FEEDTUBE PRN PRN PRN Reason: Hypoglycemia Simple Syrup (Simple Syrup) 15 ml FEEDTUBE PRN PRN PRN Reason: Hypoglycemia Sodium Bicarbonate (Sodium Bicarbonate) 325 mg FEEDTUBE PRN PRN PRN Reason: For Clogged Feeding Tube Sodium Chloride (Nacl 0.9% 500 Ml) 1 ml IV DIRECT [facility] Last Admin: 09/16/16 16:43 Dose: 1 ml Sodium Chloride (Sodium Chloride Flush Syringe 10 Ml) 10 ml IV PRN PRN PRN Reason: LINE FLUSH Vancomycin HCl (Vancomycin Po) 250 mg FEEDTUBE Q6HR [facility] Last Admin: 10/02/16 00:58 Dose: 250 mg Exam - Constitutional Vitals: Temp Pulse Resp BP Pulse Ox 98.3 F 113 H 35 H 121/66 100 10/02/16 08:00 10/02/16 10:30 10/02/16 08:00 10/02/16 10:30 10/02/16 10:30 Results - Labs CBC & Chem 7: 10/01/16 06:00 10/01/16 06:00 Labs: Abnormal lab results 10/01/16 10/01/16 10/01/16 Range/Units 12:37 17:39 23:32 POC ABG pH (7.35-7.45) POC ABG pCO2 (35-45) POC ABG pO2 (80-105) POC Glucose 65 L 107 H 52 L (70-105) 10/02/16 10/02/16 Range/Units 00:59 10:30 POC ABG pH 7.486 H (7.35-7.45) POC ABG pCO2 30.1 L (35-45) POC ABG pO2 108 H (80-105) POC Glucose 145 H (70-105)
--- NOTE | 2016-10-02 13:41 | Progress Note ---
Assessment and Plan (1) Acute respiratory failure with hypoxia Current Visit: Yes Status: Acute Plan to address problem: - continue aspiration precautions / address VAP bundles - continue to wean oxygen for MAP > 94% - continue bronchodilators and pulmonary toilet - tapered off systemic steroids (no active needs pulmonary-[place]) - s/p tracheostomy - placed back on AC mode after review of ABG and secondary to increased work of breathing - continue daily PSV trials as tolerated (2) Acute CVA (cerebrovascular accident) Current Visit: Yes Status: Acute Plan to address problem: - out of tpA window (initially stopped due to uncontrolled HTN) - Left MCA teritory stroke with some midline shift on last CT - seen by neurology and prognosis for recovery of mental status guarded to poor - optimizing secondary prevention modalities now (BP, lipid anti-platelet therapy) - off systemic steroids now (started earlier for edema) (3) Hypertensive emergency Current Visit: Yes Status: Acute Plan to address problem: - stopped all antihypertensives while septic - following cllinically (4) Obesity (BMI 35.0-39.9 without comorbidity) Current Visit: Yes Status: Chronic Plan to address problem: - nutrition consult placed for enteral formulation - follow clinically (5) Type 2 diabetes mellitus Current Visit: Yes Status: Chronic Qualifiers: Diabetes mellitus complication status: D Diabetes mellitus complication detail: D Diabetic retinopathy severity: D Proliferative retinopathy type: P Diabetes mellitus macular edema: D Diabetes mellitus half-way insulin use : D Laterality: L Chronic kidney disease stage: C Plan to address problem: - continue SSI - discontinued lantus re: hypoglycemia (6) Leukocytosis (leucocytosis) Current Visit: Yes Status: Acute Qualifiers: Leukocytosis type: leukemoid reaction Qualified Code(s): D72.823 - Leukemoid reaction Plan to address problem: - has been spiking fevers also - fungemia noted - started diflucan as growing dann albicans but will follow sensitivities - will discontinue diflucan re: amiodarone interaction and begin micafungin - prn CBC's (7) Agitation Current Visit: Yes Status: Acute Plan to address problem: - prn sedation / analgesia - tapered off seroquel for now (8) Atrial fibrillation Current Visit: Yes Status: Acute Qualifiers: Atrial fibrillation type: A Plan to address problem: - failed cardioversion earlier - cardiology evaluation ongoing - on amiodarone drip - appears to have converted to sinus (9) JUANITA (acute kidney injury) Current Visit: Yes Status: Acute Plan to address problem: - on Dialysis now - oliguric - continue vasopressor support re: cardiorenal issues and to aid dialysis - BP's better and off vasopressin today - apparently RIJ CVL may be used as vascath tentatively - HD/UF yesterday (10) Pyrexia of unknown origin Current Visit: Yes Status: Acute Plan to address problem: - will get dopplers as part of a PUO work-up to r/o VTE - continue to treat with AB;'s empirically - continue micafungin (11) Severe sepsis Current Visit: Yes Status: Acute Plan to address problem: - continue AB's and follow cultures - resume vasopressors for MAP < 60mmHg not responsive to volume - continue micafungin - all central vascular access has been discontinued after fungemia reported - care plan formulated with ID input - vascath and PICC pulled with new RIJ placed (trialysis catheter apparently) - clinically much better but back on low dose levophed (12) Emesis Current Visit: Yes Status: Acute Qualifiers: Vomiting type: V Vomiting Intractability: V Nausea presence: N Plan to address problem: - continue PEG to LIS - continue reglan - holding erythromycin - still with large volume effluent - GI recommendations noted - will consult for G-J tube but will likely have to begin TPN if we cant get that done in next 24-48hrs (13) Discharge planning issues Current Visit: Yes Status: Acute Plan to address problem: - she remains critically ill on life sustaining interventions including MVS and at risk for further acute deterioration including .....35' CCT ....half-way prognosis is guarded ...care plan discussed with family in room Subjective Date of service: 10/02/16 Principal diagnosis: Acute resp failure on MVS; S/P Acute CVA; Acute Encephalopathy; JUANITA Interval history: Seen and examined at bedside; 24 hour events reviewed; nursing and respiratory care staff consulted; no adverse overnight events reported to me; tolerating CPAP trial today; AMS is persistent; son and brother in room and care plan discussed with them; still with large gastric effluent; no new issues otherwise ; remains on low dose levophed Objective Vital Signs - 12hr 10/02/16 10/02/16 10/02/16 02:00 02:30 03:00 Temperature Pulse Rate 103 H 95 H 96 H Respiratory 33 H 22 24 Rate Blood Pressure 89/50 87/41 89/41 O2 Sat by Pulse 100 100 100 Oximetry 10/02/16 10/02/16 10/02/16 03:30 04:00 04:30 Temperature 99.1 F Pulse Rate 90 108 H 88 Respiratory 26 H 29 H 26 H Rate Blood Pressure 85/44 105/44 79/38 O2 Sat by Pulse 100 100 100 Oximetry 10/02/16 10/02/16 10/02/16 04:40 05:00 05:30 Temperature Pulse Rate 128 H 122 H 125 H Respiratory 30 H 30 H Rate Blood Pressure 79/38 145/68 128/75 O2 Sat by Pulse 100 98 100 Oximetry 10/02/16 10/02/16 10/02/16 06:00 06:30 07:00 Temperature Pulse Rate 126 H 118 H 124 H Respiratory 21 29 H 30 H Rate Blood Pressure 98/56 99/54 87/48 O2 Sat by Pulse 100 98 97 Oximetry 10/02/16 10/02/16 10/02/16 07:30 07:38 08:00 Temperature 98.3 F Pulse Rate 116 H 119 H 119 H Respiratory 33 H 33 H 35 H Rate Blood Pressure 88/41 88/41 97/49 O2 Sat by Pulse 98 99 100 Oximetry 10/02/16 10/02/16 10/02/16 08:30 09:00 09:19 Temperature Pulse Rate 108 H 110 H 106 H Respiratory 37 H 33 H Rate Blood Pressure 92/47 86/46 O2 Sat by Pulse 99 100 Oximetry 10/02/16 10/02/16 10/02/16 09:30 10:00 10:30 Temperature Pulse Rate 116 H 109 H 118 H Respiratory 34 H 39 H 38 H Rate Blood Pressure 100/53 94/59 130/69 O2 Sat by Pulse 100 100 100 Oximetry 10/02/16 10/02/16 10/02/16 11:00 11:30 12:00 Temperature 98.2 F Pulse Rate 109 H 100 H 105 H Respiratory 26 H 29 H 31 H Rate Blood Pressure 103/52 90/45 103/47 O2 Sat by Pulse 100 100 100 Oximetry 10/02/16 10/02/16 12:30 13:00 Temperature Pulse Rate 101 H 100 H Respiratory 30 H 29 H Rate Blood Pressure 101/52 105/53 O2 Sat by Pulse 100 100 Oximetry Constitutional: no acute distress, other (encephalopathic; off sedation now) Eyes: non-icteric, other (tracheostomy tube in midline of neck) ENT: oropharynx moist Neck: supple, no lymphadenopathy Effort: mildly labored Ascultation: Bilateral: diminished breath sounds, rales Cardiovascular: regular rate and rhythm Gastrointestinal: hypoactive bowel sounds, soft, non-tender, non-distended Integumentary: normal Extremities: no cyanosis, no edema, pulses normal, no ischemia or petechiae Neurologic: pupils equal and round, other (sedated) Psychiatric: other (unable to assess) CBC and BMP: 10/02/16 10:50 10/02/16 10:50 ABG, PT/INR, D-dimer: ABG POC ABG pH 7.486 (7.35-7.45) H 10/02/16 10:30 POC ABG pCO2 30.1 (35-45) L 10/02/16 10:30 POC ABG pO2 108 (80-105) H 10/02/16 10:30 POC ABG HCO3 22.7 10/02/16 10:30 POC ABG Total CO2 24 10/02/16 10:30 POC ABG O2 Sat 99 10/02/16 10:30 PT/INR, D-dimer PT 13.8 Sec. (12.2-14.9) 09/15/16 05:00 INR 1.01 (0.87-1.13) 09/15/16 05:00 Abnormal lab findings: Abnormal Labs 09/03/16 09/03/16 09/03/16 12:12 15:07 16:20 WBC RBC Hgb Hct MCV MCH MCHC RDW Plt Count Lymph % (Auto) Eddy % (Auto) Lymph # Eddy # Seg Neutrophils % Seg Neuts % (Manual) Lymphocytes % (Manual) Monocytes % (Manual) Eosinophils % (Manual) Basophils % (Manual) Nucleated RBC % Seg Neutrophils # Seg Neutrophils # Man Lymphocytes # (Manual) Monocytes # (Manual) Eosinophils # (Manual) Fibrinogen dRVVT Confirm Interp Factor V Activity POC ABG pH 7.452 H POC ABG pCO2 POC ABG pO2 Sodium Potassium Chloride Carbon Dioxide BUN Creatinine Glucose POC Glucose 178 H Lactic Acid Calcium Phosphorus 2.20 L Magnesium 1.60 L Direct Bilirubin Troponin T C-Reactive Protein Total Protein Albumin Triglycerides Cholesterol LDL Cholesterol Direct HDL Cholesterol Urine WBC (Auto) Urine Creatinine Urine Total Protein Vancomycin Trough Rheumatoid Factor Complement C4 Crossmatch 09/03/16 09/03/16 09/03/16 17:57 17:58 23:50 WBC RBC Hgb Hct MCV MCH MCHC RDW Plt Count Lymph % (Auto) Eddy % (Auto) Lymph # Eddy # Seg Neutrophils % Seg Neuts % (Manual) Lymphocytes % (Manual) Monocytes % (Manual) Eosinophils % (Manual) Basophils % (Manual) Nucleated RBC % Seg Neutrophils # Seg Neutrophils # Man Lymphocytes # (Manual) Monocytes # (Manual) Eosinophils # (Manual) Fibrinogen dRVVT Confirm Interp Factor V Activity POC ABG pH POC ABG pCO2 POC ABG pO2 Sodium Potassium Chloride Carbon Dioxide BUN Creatinine Glucose POC Glucose 162 H 145 H Lactic Acid Calcium Phosphorus 2.30 L Magnesium Direct Bilirubin Troponin T C-Reactive Protein Total Protein Albumin Triglycerides Cholesterol LDL Cholesterol Direct HDL Cholesterol Urine WBC (Auto) Urine Creatinine Urine Total Protein Vancomycin Trough Rheumatoid Factor Complement C4 Crossmatch 09/04/16 09/04/16 09/04/16 03:31 03:31 05:42 WBC RBC Hgb 9.7 L D Hct MCV 72 L MCH 23 L MCHC RDW 17.5 H Plt Count Lymph % (Auto) 11.1 L Eddy % (Auto) Lymph # Eddy # Seg Neutrophils % 84.3 H Seg Neuts % (Manual) Lymphocytes % (Manual) Monocytes % (Manual) Eosinophils % (Manual) Basophils % (Manual) Nucleated RBC % Seg Neutrophils # 8.9 H Seg Neutrophils # Man Lymphocytes # (Manual) Monocytes # (Manual) Eosinophils # (Manual) Fibrinogen dRVVT Confirm Interp Factor V Activity POC ABG pH POC ABG pCO2 POC ABG pO2 Sodium 135 L Potassium 2.9 L* Chloride 97.2 L Carbon Dioxide 19 L BUN Creatinine 1.7 H Glucose 170 H POC Glucose 152 H Lactic Acid Calcium Phosphorus Magnesium Direct Bilirubin Troponin T C-Reactive Protein Total Protein Albumin Triglycerides 160 H Cholesterol LDL Cholesterol Direct HDL Cholesterol 31 L Urine WBC (Auto) Urine Creatinine Urine Total Protein Vancomycin Trough Rheumatoid Factor Complement C4 Crossmatch 09/04/16 09/04/16 09/04/16 11:34 17:46 23:29 WBC RBC Hgb Hct MCV MCH MCHC RDW Plt Count Lymph % (Auto) Eddy % (Auto) Lymph # Eddy # Seg Neutrophils % Seg Neuts % (Manual) Lymphocytes % (Manual) Monocytes % (Manual) Eosinophils % (Manual) Basophils % (Manual) Nucleated RBC % Seg Neutrophils # Seg Neutrophils # Man Lymphocytes # (Manual) Monocytes # (Manual) Eosinophils # (Manual) Fibrinogen dRVVT Confirm Interp Factor V Activity POC ABG pH POC ABG pCO2 POC ABG pO2 Sodium Potassium Chloride Carbon Dioxide BUN Creatinine Glucose POC Glucose 165 H 210 H 139 H Lactic Acid Calcium Phosphorus Magnesium Direct Bilirubin Troponin T C-Reactive Protein Total Protein Albumin Triglycerides Cholesterol LDL Cholesterol Direct HDL Cholesterol Urine WBC (Auto) Urine Creatinine Urine Total Protein Vancomycin Trough Rheumatoid Factor Complement C4 Crossmatch 09/05/16 09/05/16 09/05/16 04:05 04:05 05:38 WBC RBC Hgb Hct MCV 76 L D MCH 23 L MCHC RDW 17.8 H Plt Count Lymph % (Auto) Eddy % (Auto) Lymph # Eddy # Seg Neutrophils % Seg Neuts % (Manual) Lymphocytes % (Manual) Monocytes % (Manual) Eosinophils % (Manual) Basophils % (Manual) Nucleated RBC % Seg Neutrophils # Seg Neutrophils # Man Lymphocytes # (Manual) Monocytes # (Manual) Eosinophils # (Manual) Fibrinogen dRVVT Confirm Interp Factor V Activity POC ABG pH POC ABG pCO2 POC ABG pO2 Sodium 134 L Potassium Chloride Carbon Dioxide 18 L BUN Creatinine 1.8 H Glucose 192 H POC Glucose 175 H Lactic Acid Calcium Phosphorus Magnesium Direct Bilirubin Troponin T C-Reactive Protein Total Protein Albumin Triglycerides Cholesterol LDL Cholesterol Direct HDL Cholesterol Urine WBC (Auto) Urine Creatinine Urine Total Protein Vancomycin Trough Rheumatoid Factor Complement C4 Crossmatch 09/05/16 09/05/16 09/05/16 11:38 17:48 23:22 WBC RBC Hgb Hct MCV MCH MCHC RDW Plt Count Lymph % (Auto) Eddy % (Auto) Lymph # Eddy # Seg Neutrophils % Seg Neuts % (Manual) Lymphocytes % (Manual) Monocytes % (Manual) Eosinophils % (Manual) Basophils % (Manual) Nucleated RBC % Seg Neutrophils # Seg Neutrophils # Man Lymphocytes # (Manual) Monocytes # (Manual) Eosinophils # (Manual) Fibrinogen dRVVT Confirm Interp Factor V Activity POC ABG pH POC ABG pCO2 POC ABG pO2 Sodium Potassium Chloride Carbon Dioxide BUN Creatinine Glucose POC Glucose 164 H 186 H 195 H Lactic Acid Calcium Phosphorus Magnesium Direct Bilirubin Troponin T C-Reactive Protein Total Protein Albumin Triglycerides Cholesterol LDL Cholesterol Direct HDL Cholesterol Urine WBC (Auto) Urine Creatinine Urine Total Protein Vancomycin Trough Rheumatoid Factor Complement C4 Crossmatch 09/06/16 09/06/16 09/06/16 04:12 05:59 07:32 WBC RBC Hgb Hct MCV MCH MCHC RDW Plt Count Lymph % (Auto) Eddy % (Auto) Lymph # Eddy # Seg Neutrophils % Seg Neuts % (Manual) Lymphocytes % (Manual) Monocytes % (Manual) Eosinophils % (Manual) Basophils % (Manual) Nucleated RBC % Seg Neutrophils # Seg Neutrophils # Man Lymphocytes # (Manual) Monocytes # (Manual) Eosinophils # (Manual) Fibrinogen dRVVT Confirm Interp Factor V Activity POC ABG pH 7.514 H POC ABG pCO2 29.1 L POC ABG pO2 72 L Sodium 133 L Potassium 3.4 L Chloride 94.9 L Carbon Dioxide 19 L BUN 30 H Creatinine 2.1 H Glucose 139 H POC Glucose 146 H Lactic Acid Calcium Phosphorus Magnesium Direct Bilirubin Troponin T C-Reactive Protein Total Protein Albumin Triglycerides Cholesterol LDL Cholesterol Direct HDL Cholesterol Urine WBC (Auto) Urine Creatinine Urine Total Protein Vancomycin Trough Rheumatoid Factor Complement C4 Crossmatch 09/06/16 09/06/16 09/06/16 11:57 17:58 19:02 WBC RBC Hgb Hct MCV MCH MCHC RDW Plt Count Lymph % (Auto) Eddy % (Auto) Lymph # Eddy # Seg Neutrophils % Seg Neuts % (Manual) Lymphocytes % (Manual) Monocytes % (Manual) Eosinophils % (Manual) Basophils % (Manual) Nucleated RBC % Seg Neutrophils # Seg Neutrophils # Man Lymphocytes # (Manual) Monocytes # (Manual) Eosinophils # (Manual) Fibrinogen dRVVT Confirm Interp Factor V Activity POC ABG pH 7.465 H POC ABG pCO2 32.0 L POC ABG pO2 Sodium Potassium Chloride Carbon Dioxide BUN Creatinine Glucose POC Glucose 165 H 160 H Lactic Acid Calcium Phosphorus Magnesium Direct Bilirubin Troponin T C-Reactive Protein Total Protein Albumin Triglycerides Cholesterol LDL Cholesterol Direct HDL Cholesterol Urine WBC (Auto) Urine Creatinine Urine Total Protein Vancomycin Trough Rheumatoid Factor Complement C4 Crossmatch 09/06/16 09/07/16 09/07/16 23:45 02:47 02:47 WBC RBC Hgb Hct MCV MCH MCHC RDW Plt Count Lymph % (Auto) Eddy % (Auto) Lymph # Eddy # Seg Neutrophils % Seg Neuts % (Manual) Lymphocytes % (Manual) Monocytes % (Manual) Eosinophils % (Manual) Basophils % (Manual) Nucleated RBC % Seg Neutrophils # Seg Neutrophils # Man Lymphocytes # (Manual) Monocytes # (Manual) Eosinophils # (Manual) Fibrinogen dRVVT Confirm Interp Factor V Activity POC ABG pH POC ABG pCO2 POC ABG pO2 Sodium Potassium Chloride Carbon Dioxide BUN Creatinine Glucose POC Glucose 204 H Lactic Acid Calcium Phosphorus Magnesium Direct Bilirubin Troponin T C-Reactive Protein Total Protein Albumin Triglycerides Cholesterol LDL Cholesterol Direct HDL Cholesterol Urine WBC (Auto) 68.0 H Urine Creatinine 106.1 H Urine Total Protein Vancomycin Trough Rheumatoid Factor Complement C4 Crossmatch 09/07/16 09/07/16 09/07/16 04:50 06:19 06:39 WBC RBC Hgb Hct MCV MCH MCHC RDW Plt Count Lymph % (Auto) Eddy % (Auto) Lymph # Eddy # Seg Neutrophils % Seg Neuts % (Manual) Lymphocytes % (Manual) Monocytes % (Manual) Eosinophils % (Manual) Basophils % (Manual) Nucleated RBC % Seg Neutrophils # Seg Neutrophils # Man Lymphocytes # (Manual) Monocytes # (Manual) Eosinophils # (Manual) Fibrinogen dRVVT Confirm Interp Factor V Activity POC ABG pH 7.457 H POC ABG pCO2 32.1 L POC ABG pO2 76 L Sodium 132 L Potassium Chloride 94.7 L Carbon Dioxide BUN 53 H Creatinine 2.9 H Glucose 151 H POC Glucose 149 H Lactic Acid Calcium Phosphorus Magnesium Direct Bilirubin Troponin T C-Reactive Protein Total Protein Albumin Triglycerides Cholesterol LDL Cholesterol Direct HDL Cholesterol Urine WBC (Auto) Urine Creatinine Urine Total Protein Vancomycin Trough Rheumatoid Factor Complement C4 Crossmatch 09/07/16 09/07/16 09/07/16 09:20 11:43 11:43 WBC 19.4 H RBC Hgb 8.3 L Hct 26.4 L D MCV 72 L D MCH 22 L MCHC RDW 17.9 H Plt Count Lymph % (Auto) 8.5 L Eddy % (Auto) Lymph # Eddy # 1.0 H Seg Neutrophils % 85.8 H Seg Neuts % (Manual) Lymphocytes % (Manual) Monocytes % (Manual) Eosinophils % (Manual) Basophils % (Manual) Nucleated RBC % Seg Neutrophils # 16.6 H Seg Neutrophils # Man Lymphocytes # (Manual) Monocytes # (Manual) Eosinophils # (Manual) Fibrinogen dRVVT Confirm Interp Factor V Activity POC ABG pH POC ABG pCO2 POC ABG pO2 Sodium 134 L Potassium Chloride 97.2 L Carbon Dioxide 20 L BUN 58 H Creatinine 2.9 H Glucose 147 H POC Glucose Lactic Acid Calcium Phosphorus 2.40 L Magnesium 2.40 H Direct Bilirubin Troponin T C-Reactive Protein Total Protein 5.8 L Albumin 2.2 L Triglycerides Cholesterol LDL Cholesterol Direct HDL Cholesterol Urine WBC (Auto) Urine Creatinine Urine Total Protein Vancomycin Trough Rheumatoid Factor Complement C4 58 H Crossmatch 09/07/16 09/07/16 09/07/16 11:50 16:00 17:31 WBC RBC Hgb Hct MCV MCH MCHC RDW Plt Count Lymph % (Auto) Eddy % (Auto) Lymph # Eddy # Seg Neutrophils % Seg Neuts % (Manual) Lymphocytes % (Manual) Monocytes % (Manual) Eosinophils % (Manual) Basophils % (Manual) Nucleated RBC % Seg Neutrophils # Seg Neutrophils # Man Lymphocytes # (Manual) Monocytes # (Manual) Eosinophils # (Manual) Fibrinogen dRVVT Confirm Interp Factor V Activity POC ABG pH POC ABG pCO2 POC ABG pO2 158 H Sodium Potassium Chloride Carbon Dioxide BUN Creatinine Glucose POC Glucose 175 H Lactic Acid Calcium Phosphorus Magnesium Direct Bilirubin Troponin T C-Reactive Protein Total Protein Albumin Triglycerides Cholesterol LDL Cholesterol Direct HDL Cholesterol Urine WBC (Auto) Urine Creatinine 66.3 H Urine Total Protein Vancomycin Trough Rheumatoid Factor Complement C4 Crossmatch 09/07/16 09/08/16 09/08/16 23:50 05:46 06:18 WBC 17.8 H RBC 3.58 L Hgb 8.1 L Hct 25.5 L MCV 71 L MCH 23 L MCHC RDW 18.4 H Plt Count Lymph % (Auto) Eddy % (Auto) Lymph # Eddy # Seg Neutrophils % Seg Neuts % (Manual) 92.0 H Lymphocytes % (Manual) 6.0 L Monocytes % (Manual) Eosinophils % (Manual) Basophils % (Manual) Nucleated RBC % Seg Neutrophils # Seg Neutrophils # Man 16.4 H Lymphocytes # (Manual) 1.1 L Monocytes # (Manual) Eosinophils # (Manual) Fibrinogen dRVVT Confirm Interp Factor V Activity POC ABG pH POC ABG pCO2 34.3 L POC ABG pO2 71 L Sodium Potassium Chloride Carbon Dioxide BUN Creatinine Glucose POC Glucose 216 H Lactic Acid Calcium Phosphorus Magnesium Direct Bilirubin Troponin T C-Reactive Protein Total Protein Albumin Triglycerides Cholesterol LDL Cholesterol Direct HDL Cholesterol Urine WBC (Auto) Urine Creatinine Urine Total Protein Vancomycin Trough Rheumatoid Factor Complement C4 Crossmatch 0709/08/16 09/08/16 06:18 06:51 10:55 WBC RBC Hgb Hct MCV MCH MCHC RDW Plt Count Lymph % (Auto) Eddy % (Auto) Lymph # Eddy # Seg Neutrophils % Seg Neuts % (Manual) Lymphocytes % (Manual) Monocytes % (Manual) Eosinophils % (Manual) Basophils % (Manual) Nucleated RBC % Seg Neutrophils # Seg Neutrophils # Man Lymphocytes # (Manual) Monocytes # (Manual) Eosinophils # (Manual) Fibrinogen dRVVT Confirm Interp Factor V Activity POC ABG pH POC ABG pCO2 POC ABG pO2 Sodium 133 L Potassium Chloride 96.9 L Carbon Dioxide 20 L BUN 63 H Creatinine 2.7 H Glucose 195 H POC Glucose 204 H 169 H Lactic Acid Calcium Phosphorus Magnesium Direct Bilirubin Troponin T C-Reactive Protein Total Protein Albumin Triglycerides Cholesterol LDL Cholesterol Direct HDL Cholesterol Urine WBC (Auto) Urine Creatinine Urine Total Protein Vancomycin Trough Rheumatoid Factor Complement C4 Crossmatch 09/08/16 09/08/16 09/08/16 11:48 11:48 11:48 WBC RBC Hgb Hct MCV MCH MCHC RDW Plt Count Lymph % (Auto) Eddy % (Auto) Lymph # Eddy # Seg Neutrophils % Seg Neuts % (Manual) Lymphocytes % (Manual) Monocytes % (Manual) Eosinophils % (Manual) Basophils % (Manual) Nucleated RBC % Seg Neutrophils # Seg Neutrophils # Man Lymphocytes # (Manual) Monocytes # (Manual) Eosinophils # (Manual) Fibrinogen 750 H dRVVT Confirm Interp Factor V Activity POC ABG pH POC ABG pCO2 POC ABG pO2 Sodium Potassium Chloride Carbon Dioxide BUN Creatinine Glucose POC Glucose Lactic Acid Calcium Phosphorus Magnesium Direct Bilirubin Troponin T C-Reactive Protein 15.70 H Total Protein Albumin Triglycerides Cholesterol LDL Cholesterol Direct HDL Cholesterol Urine WBC (Auto) Urine Creatinine Urine Total Protein Vancomycin Trough Rheumatoid Factor 24 H Complement C4 Crossmatch 09/08/16 09/08/16 09/09/16 15:35 18:25 00:24 WBC RBC Hgb Hct MCV MCH MCHC RDW Plt Count Lymph % (Auto) Eddy % (Auto) Lymph # Eddy # Seg Neutrophils % Seg Neuts % (Manual) Lymphocytes % (Manual) Monocytes % (Manual) Eosinophils % (Manual) Basophils % (Manual) Nucleated RBC % Seg Neutrophils # Seg Neutrophils # Man Lymphocytes # (Manual) Monocytes # (Manual) Eosinophils # (Manual) Fibrinogen dRVVT Confirm Interp Factor V Activity 182 H POC ABG pH POC ABG pCO2 POC ABG pO2 Sodium Potassium Chloride Carbon Dioxide BUN Creatinine Glucose POC Glucose 184 H 216 H Lactic Acid Calcium Phosphorus Magnesium Direct Bilirubin Troponin T C-Reactive Protein Total Protein Albumin Triglycerides Cholesterol LDL Cholesterol Direct HDL Cholesterol Urine WBC (Auto) Urine Creatinine Urine Total Protein Vancomycin Trough Rheumatoid Factor Complement C4 Crossmatch 09/09/16 09/09/16 09/09/16 03:00 03:00 04:04 WBC 27.9 H RBC Hgb 8.7 L Hct 28.1 L MCV 72 L MCH 22 L MCHC RDW 18.4 H Plt Count 485 H Lymph % (Auto) Eddy % (Auto) Lymph # Eddy # Seg Neutrophils % Seg Neuts % (Manual) 77.0 H Lymphocytes % (Manual) 9.0 L Monocytes % (Manual) Eosinophils % (Manual) Basophils % (Manual) Nucleated RBC % Seg Neutrophils # Seg Neutrophils # Man 21.5 H Lymphocytes # (Manual) Monocytes # (Manual) 2.0 H Eosinophils # (Manual) Fibrinogen dRVVT Confirm Interp Factor V Activity POC ABG pH POC ABG pCO2 POC ABG pO2 121 H Sodium 135 L Potassium Chloride 96.3 L Carbon Dioxide 21 L BUN 83 H Creatinine 3.0 H Glucose 135 H POC Glucose Lactic Acid Calcium Phosphorus Magnesium Direct Bilirubin Troponin T C-Reactive Protein Total Protein Albumin Triglycerides Cholesterol LDL Cholesterol Direct HDL Cholesterol Urine WBC (Auto) Urine Creatinine Urine Total Protein Vancomycin Trough Rheumatoid Factor Complement C4 Crossmatch 09/09/16 09/09/16 09/09/16 05:41 11:55 14:13 WBC RBC Hgb Hct MCV MCH MCHC RDW Plt Count Lymph % (Auto) Eddy % (Auto) Lymph # Eddy # Seg Neutrophils % Seg Neuts % (Manual) Lymphocytes % (Manual) Monocytes % (Manual) Eosinophils % (Manual) Basophils % (Manual) Nucleated RBC % Seg Neutrophils # Seg Neutrophils # Man Lymphocytes # (Manual) Monocytes # (Manual) Eosinophils # (Manual) Fibrinogen dRVVT Confirm Interp Factor V Activity POC ABG pH POC ABG pCO2 POC ABG pO2 Sodium Potassium Chloride Carbon Dioxide BUN Creatinine Glucose POC Glucose 155 H 186 H Lactic Acid Calcium Phosphorus Magnesium Direct Bilirubin Troponin T C-Reactive Protein Total Protein Albumin Triglycerides Cholesterol LDL Cholesterol Direct HDL Cholesterol Urine WBC (Auto) 25.0 H Urine Creatinine Urine Total Protein Vancomycin Trough Rheumatoid Factor Complement C4 Crossmatch 09/09/16 09/09/1609/10/17 17:33 23:13 05:09 WBC RBC Hgb Hct MCV MCH MCHC RDW Plt Count Lymph % (Auto) Eddy % (Auto) Lymph # Eddy # Seg Neutrophils % Seg Neuts % (Manual) Lymphocytes % (Manual) Monocytes % (Manual) Eosinophils % (Manual) Basophils % (Manual) Nucleated RBC % Seg Neutrophils # Seg Neutrophils # Man Lymphocytes # (Manual) Monocytes # (Manual) Eosinophils # (Manual) Fibrinogen dRVVT Confirm Interp Factor V Activity POC ABG pH POC ABG pCO2 POC ABG pO2 74 L Sodium Potassium Chloride Carbon Dioxide BUN Creatinine Glucose POC Glucose 211 H 215 H Lactic Acid Calcium Phosphorus Magnesium Direct Bilirubin Troponin T C-Reactive Protein Total Protein Albumin Triglycerides Cholesterol LDL Cholesterol Direct HDL Cholesterol Urine WBC (Auto) Urine Creatinine Urine Total Protein Vancomycin Trough Rheumatoid Factor Complement C4 Crossmatch 09/10/16 09/10/16 09/10/16 05:17 05:17 11:31 WBC 15.8 H RBC 3.25 L Hgb 7.3 L Hct 22.9 L MCV 71 L MCH 23 L MCHC RDW 18.4 H Plt Count Lymph % (Auto) Eddy % (Auto) Lymph # Eddy # Seg Neutrophils % Seg Neuts % (Manual) 91.0 H Lymphocytes % (Manual) 4.0 L Monocytes % (Manual) Eosinophils % (Manual) Basophils % (Manual) Nucleated RBC % Seg Neutrophils # Seg Neutrophils # Man 14.4 H Lymphocytes # (Manual) 0.6 L Monocytes # (Manual) Eosinophils # (Manual) Fibrinogen dRVVT Confirm Interp Factor V Activity POC ABG pH POC ABG pCO2 POC ABG pO2 Sodium Potassium Chloride Carbon Dioxide 21 L BUN 93 H Creatinine 2.9 H Glucose 146 H POC Glucose 188 H Lactic Acid Calcium 8.1 L Phosphorus Magnesium Direct Bilirubin Troponin T C-Reactive Protein Total Protein Albumin Triglycerides Cholesterol LDL Cholesterol Direct HDL Cholesterol Urine WBC (Auto) Urine Creatinine Urine Total Protein Vancomycin Trough Rheumatoid Factor Complement C4 Crossmatch 09/10/16 09/10/16 09/10/16 13:17 17:20 23:32 WBC RBC Hgb Hct MCV MCH MCHC RDW Plt Count Lymph % (Auto) Eddy % (Auto) Lymph # Eddy # Seg Neutrophils % Seg Neuts % (Manual) Lymphocytes % (Manual) Monocytes % (Manual) Eosinophils % (Manual) Basophils % (Manual) Nucleated RBC % Seg Neutrophils # Seg Neutrophils # Man Lymphocytes # (Manual) Monocytes # (Manual) Eosinophils # (Manual) Fibrinogen dRVVT Confirm Interp Factor V Activity POC ABG pH POC ABG pCO2 POC ABG pO2 Sodium Potassium Chloride Carbon Dioxide BUN Creatinine Glucose POC Glucose 199 H 186 H Lactic Acid Calcium Phosphorus Magnesium Direct Bilirubin Troponin T C-Reactive Protein Total Protein Albumin Triglycerides Cholesterol LDL Cholesterol Direct HDL Cholesterol Urine WBC (Auto) Urine Creatinine Urine Total Protein Vancomycin Trough Rheumatoid Factor Complement C4 Crossmatch See Detail 09/11/16 09/11/16 09/11/16 05:10 05:10 05:17 WBC 28.4 H RBC Hgb 9.2 L Hct 29.3 L D MCV 73 L MCH 23 L MCHC RDW 18.9 H Plt Count 452 H Lymph % (Auto) Eddy % (Auto) Lymph # Eddy # Seg Neutrophils % Seg Neuts % (Manual) 89.5 H Lymphocytes % (Manual) 2.0 L Monocytes % (Manual) Eosinophils % (Manual) Basophils % (Manual) Nucleated RBC % Seg Neutrophils # Seg Neutrophils # Man 25.4 H Lymphocytes # (Manual) 0.6 L Monocytes # (Manual) 1.3 H Eosinophils # (Manual) Fibrinogen dRVVT Confirm Interp Factor V Activity POC ABG pH POC ABG pCO2 POC ABG pO2 Sodium 136 L Potassium Chloride Carbon Dioxide 18 L BUN 107 H Creatinine 2.6 H Glucose 187 H POC Glucose 230 H Lactic Acid Calcium 8.3 L Phosphorus Magnesium Direct Bilirubin Troponin T C-Reactive Protein Total Protein Albumin Triglycerides Cholesterol LDL Cholesterol Direct HDL Cholesterol Urine WBC (Auto) Urine Creatinine Urine Total Protein Vancomycin Trough Rheumatoid Factor Complement C4 Crossmatch 09/11/16 09/11/16 09/11/16 05:55 12:02 17:32 WBC RBC Hgb Hct MCV MCH MCHC RDW Plt Count Lymph % (Auto) Eddy % (Auto) Lymph # Eddy # Seg Neutrophils % Seg Neuts % (Manual) Lymphocytes % (Manual) Monocytes % (Manual) Eosinophils % (Manual) Basophils % (Manual) Nucleated RBC % Seg Neutrophils # Seg Neutrophils # Man Lymphocytes # (Manual) Monocytes # (Manual) Eosinophils # (Manual) Fibrinogen dRVVT Confirm Interp Factor V Activity POC ABG pH POC ABG pCO2 33.8 L POC ABG pO2 Sodium Potassium Chloride Carbon Dioxide BUN Creatinine Glucose POC Glucose 191 H 239 H Lactic Acid Calcium Phosphorus Magnesium Direct Bilirubin Troponin T C-Reactive Protein Total Protein Albumin Triglycerides Cholesterol LDL Cholesterol Direct HDL Cholesterol Urine WBC (Auto) Urine Creatinine Urine Total Protein Vancomycin Trough Rheumatoid Factor Complement C4 Crossmatch 09/11/16 09/12/16 09/12/16 23:52 05:09 05:32 WBC RBC Hgb Hct MCV MCH MCHC RDW Plt Count Lymph % (Auto) Eddy % (Auto) Lymph # Eddy # Seg Neutrophils % Seg Neuts % (Manual) Lymphocytes % (Manual) Monocytes % (Manual) Eosinophils % (Manual) Basophils % (Manual) Nucleated RBC % Seg Neutrophils # Seg Neutrophils # Man Lymphocytes # (Manual) Monocytes # (Manual) Eosinophils # (Manual) Fibrinogen dRVVT Confirm Interp Factor V Activity POC ABG pH POC ABG pCO2 34.6 L POC ABG pO2 Sodium Potassium Chloride Carbon Dioxide BUN Creatinine Glucose POC Glucose 265 H 184 H Lactic Acid Calcium Phosphorus Magnesium Direct Bilirubin Troponin T C-Reactive Protein Total Protein Albumin Triglycerides Cholesterol LDL Cholesterol Direct HDL Cholesterol Urine WBC (Auto) Urine Creatinine Urine Total Protein Vancomycin Trough Rheumatoid Factor Complement C4 Crossmatch 09/12/16 09/12/16 09/12/16 06:45 06:45 07:22 WBC 31.7 H RBC 3.54 L Hgb 8.3 L Hct 25.9 L MCV 73 L MCH 23 L MCHC RDW 18.9 H Plt Count Lymph % (Auto) Eddy % (Auto) Lymph # Eddy # Seg Neutrophils % Seg Neuts % (Manual) 88.5 H Lymphocytes % (Manual) 4.5 L Monocytes % (Manual) Eosinophils % (Manual) Basophils % (Manual) Nucleated RBC % Seg Neutrophils # Seg Neutrophils # Man 28.1 H Lymphocytes # (Manual) Monocytes # (Manual) 1.0 H Eosinophils # (Manual) Fibrinogen dRVVT Confirm Interp Factor V Activity POC ABG pH POC ABG pCO2 POC ABG pO2 Sodium Potassium Chloride Carbon Dioxide 20 L BUN 115 H Creatinine 2.7 H Glucose 165 H POC Glucose Lactic Acid Calcium 8.0 L Phosphorus Magnesium Direct Bilirubin Troponin T C-Reactive Protein Total Protein Albumin Triglycerides 217 H Cholesterol LDL Cholesterol Direct HDL Cholesterol Urine WBC (Auto) Urine Creatinine Urine Total Protein Vancomycin Trough Rheumatoid Factor Complement C4 Crossmatch 09/12/16 09/12/16 09/12/16 07:22 09:59 12:21 WBC RBC Hgb Hct MCV MCH MCHC RDW Plt Count Lymph % (Auto) Eddy % (Auto) Lymph # Eddy # Seg Neutrophils % Seg Neuts % (Manual) Lymphocytes % (Manual) Monocytes % (Manual) Eosinophils % (Manual) Basophils % (Manual) Nucleated RBC % Seg Neutrophils # Seg Neutrophils # Man Lymphocytes # (Manual) Monocytes # (Manual) Eosinophils # (Manual) Fibrinogen dRVVT Confirm Interp Positive H Factor V Activity POC ABG pH POC ABG pCO2 POC ABG pO2 Sodium Potassium Chloride Carbon Dioxide BUN Creatinine Glucose POC Glucose 224 H Lactic Acid Calcium Phosphorus Magnesium Direct Bilirubin Troponin T C-Reactive Protein 1.70 H Total Protein Albumin Triglycerides Cholesterol LDL Cholesterol Direct HDL Cholesterol Urine WBC (Auto) Urine Creatinine Urine Total Protein Vancomycin Trough Rheumatoid Factor Complement C4 Crossmatch 09/12/16 09/12/16 09/13/16 16:51 23:28 04:00 WBC 45.0 H* RBC Hgb 9.4 L Hct MCV 75 L MCH 23 L MCHC RDW 19.0 H Plt Count 470 H Lymph % (Auto) Eddy % (Auto) Lymph # Eddy # Seg Neutrophils % Seg Neuts % (Manual) 89.0 H Lymphocytes % (Manual) 5.0 L Monocytes % (Manual) Eosinophils % (Manual) Basophils % (Manual) Nucleated RBC % Seg Neutrophils # Seg Neutrophils # Man 40.1 H Lymphocytes # (Manual) Monocytes # (Manual) Eosinophils # (Manual) Fibrinogen dRVVT Confirm Interp Factor V Activity POC ABG pH POC ABG pCO2 POC ABG pO2 Sodium Potassium Chloride Carbon Dioxide BUN Creatinine Glucose POC Glucose 169 H 150 H Lactic Acid Calcium Phosphorus Magnesium Direct Bilirubin Troponin T C-Reactive Protein Total Protein Albumin Triglycerides Cholesterol LDL Cholesterol Direct HDL Cholesterol Urine WBC (Auto) Urine Creatinine Urine Total Protein Vancomycin Trough Rheumatoid Factor Complement C4 Crossmatch 09/13/16 09/13/16 09/13/16 04:00 11:26 17:31 WBC RBC Hgb Hct MCV MCH MCHC RDW Plt Count Lymph % (Auto) Eddy % (Auto) Lymph # Eddy # Seg Neutrophils % Seg Neuts % (Manual) Lymphocytes % (Manual) Monocytes % (Manual) Eosinophils % (Manual) Basophils % (Manual) Nucleated RBC % Seg Neutrophils # Seg Neutrophils # Man Lymphocytes # (Manual) Monocytes # (Manual) Eosinophils # (Manual) Fibrinogen dRVVT Confirm Interp Factor V Activity POC ABG pH POC ABG pCO2 POC ABG pO2 Sodium Potassium Chloride Carbon Dioxide 20 L BUN 116 H Creatinine 3.0 H Glucose 172 H POC Glucose 140 H 183 H Lactic Acid Calcium Phosphorus Magnesium Direct Bilirubin Troponin T C-Reactive Protein Total Protein 6.2 L Albumin 2.9 L Triglycerides Cholesterol LDL Cholesterol Direct HDL Cholesterol Urine WBC (Auto) Urine Creatinine Urine Total Protein Vancomycin Trough Rheumatoid Factor Complement C4 Crossmatch 09/13/16 09/14/16 09/14/16 23:23 04:06 04:07 WBC 29.4 H RBC Hgb 8.9 L Hct 27.3 L MCV 75 L MCH 24 L MCHC RDW 19.1 H Plt Count Lymph % (Auto) Eddy % (Auto) Lymph # Eddy # Seg Neutrophils % Seg Neuts % (Manual) 84.0 H Lymphocytes % (Manual) 6.0 L Monocytes % (Manual) 9.0 H Eosinophils % (Manual) Basophils % (Manual) Nucleated RBC % Seg Neutrophils # Seg Neutrophils # Man 24.7 H Lymphocytes # (Manual) Monocytes # (Manual) 2.6 H Eosinophils # (Manual) Fibrinogen dRVVT Confirm Interp Factor V Activity POC ABG pH 7.342 L POC ABG pCO2 POC ABG pO2 116 H Sodium Potassium Chloride Carbon Dioxide BUN Creatinine Glucose POC Glucose 154 H Lactic Acid Calcium Phosphorus Magnesium Direct Bilirubin Troponin T C-Reactive Protein Total Protein Albumin Triglycerides Cholesterol LDL Cholesterol Direct HDL Cholesterol Urine WBC (Auto) Urine Creatinine Urine Total Protein Vancomycin Trough Rheumatoid Factor Complement C4 Crossmatch 09/14/16 09/14/16 09/14/16 04:07 05:29 12:19 WBC RBC Hgb Hct MCV MCH MCHC RDW Plt Count Lymph % (Auto) Eddy % (Auto) Lymph # Eddy # Seg Neutrophils % Seg Neuts % (Manual) Lymphocytes % (Manual) Monocytes % (Manual) Eosinophils % (Manual) Basophils % (Manual) Nucleated RBC % Seg Neutrophils # Seg Neutrophils # Man Lymphocytes # (Manual) Monocytes # (Manual) Eosinophils # (Manual) Fibrinogen dRVVT Confirm Interp Factor V Activity POC ABG pH POC ABG pCO2 POC ABG pO2 Sodium 136 L Potassium Chloride Carbon Dioxide 18 L BUN 121 H Creatinine 2.8 H Glucose 214 H POC Glucose 239 H 181 H Lactic Acid Calcium Phosphorus Magnesium Direct Bilirubin Troponin T C-Reactive Protein Total Protein Albumin Triglycerides Cholesterol LDL Cholesterol Direct HDL Cholesterol Urine WBC (Auto) Urine Creatinine Urine Total Protein Vancomycin Trough Rheumatoid Factor Complement C4 Crossmatch 09/14/16 09/14/16 09/15/16 18:12 23:37 05:00 WBC 26.1 H RBC 3.05 L Hgb 7.2 L Hct 22.9 L MCV 75 L MCH 24 L MCHC RDW 19.0 H Plt Count Lymph % (Auto) Eddy % (Auto) Lymph # Eddy # Seg Neutrophils % Seg Neuts % (Manual) Lymphocytes % (Manual) Monocytes % (Manual) Eosinophils % (Manual) Basophils % (Manual) Nucleated RBC % Seg Neutrophils # Seg Neutrophils # Man Lymphocytes # (Manual) Monocytes # (Manual) Eosinophils # (Manual) Fibrinogen dRVVT Confirm Interp Factor V Activity POC ABG pH POC ABG pCO2 POC ABG pO2 Sodium Potassium Chloride Carbon Dioxide BUN Creatinine Glucose POC Glucose 266 H 154 H Lactic Acid Calcium Phosphorus Magnesium Direct Bilirubin Troponin T C-Reactive Protein Total Protein Albumin Triglycerides Cholesterol LDL Cholesterol Direct HDL Cholesterol Urine WBC (Auto) Urine Creatinine Urine Total Protein Vancomycin Trough Rheumatoid Factor Complement C4 Crossmatch 09/15/16 09/15/16 09/15/16 05:00 05:17 12:45 WBC RBC Hgb Hct MCV MCH MCHC RDW Plt Count Lymph % (Auto) Eddy % (Auto) Lymph # Eddy # Seg Neutrophils % Seg Neuts % (Manual) Lymphocytes % (Manual) Monocytes % (Manual) Eosinophils % (Manual) Basophils % (Manual) Nucleated RBC % Seg Neutrophils # Seg Neutrophils # Man Lymphocytes # (Manual) Monocytes # (Manual) Eosinophils # (Manual) Fibrinogen dRVVT Confirm Interp Factor V Activity POC ABG pH POC ABG pCO2 POC ABG pO2 Sodium Potassium 5.2 H Chloride Carbon Dioxide 18 L BUN 139 H Creatinine 3.7 H Glucose 227 H POC Glucose 226 H 244 H Lactic Acid Calcium 8.3 L Phosphorus Magnesium Direct Bilirubin Troponin T C-Reactive Protein Total Protein Albumin Triglycerides Cholesterol LDL Cholesterol Direct HDL Cholesterol Urine WBC (Auto) Urine Creatinine Urine Total Protein Vancomycin Trough Rheumatoid Factor Complement C4 Crossmatch 09/15/16 09/15/16 09/15/16 14:32 17:33 23:35 WBC RBC Hgb Hct MCV MCH MCHC RDW Plt Count Lymph % (Auto) Eddy % (Auto) Lymph # Eddy # Seg Neutrophils % Seg Neuts % (Manual) Lymphocytes % (Manual) Monocytes % (Manual) Eosinophils % (Manual) Basophils % (Manual) Nucleated RBC % Seg Neutrophils # Seg Neutrophils # Man Lymphocytes # (Manual) Monocytes # (Manual) Eosinophils # (Manual) Fibrinogen dRVVT Confirm Interp Factor V Activity POC ABG pH POC ABG pCO2 27.7 L POC ABG pO2 120 H Sodium Potassium Chloride Carbon Dioxide BUN Creatinine Glucose POC Glucose 232 H 167 H Lactic Acid Calcium Phosphorus Magnesium Direct Bilirubin Troponin T C-Reactive Protein Total Protein Albumin Triglycerides Cholesterol LDL Cholesterol Direct HDL Cholesterol Urine WBC (Auto) Urine Creatinine Urine Total Protein Vancomycin Trough Rheumatoid Factor Complement C4 Crossmatch 09/16/16 09/16/16 09/16/16 03:58 10:27 10:27 WBC 19.0 H RBC 2.77 L Hgb 6.5 L Hct 20.9 L MCV 76 L MCH 23 L MCHC RDW 19.3 H Plt Count Lymph % (Auto) 11.0 L Eddy % (Auto) Lymph # Eddy # 1.1 H Seg Neutrophils % 82.5 H Seg Neuts % (Manual) Lymphocytes % (Manual) Monocytes % (Manual) Eosinophils % (Manual) Basophils % (Manual) Nucleated RBC % Seg Neutrophils # 15.7 H Seg Neutrophils # Man Lymphocytes # (Manual) Monocytes # (Manual) Eosinophils # (Manual) Fibrinogen dRVVT Confirm Interp Factor V Activity POC ABG pH POC ABG pCO2 POC ABG pO2 Sodium Potassium Chloride 109.3 H Carbon Dioxide 18 L BUN 139 H Creatinine 4.1 H Glucose 144 H POC Glucose 146 H Lactic Acid Calcium 8.1 L Phosphorus Magnesium Direct Bilirubin Troponin T C-Reactive Protein Total Protein Albumin Triglycerides Cholesterol LDL Cholesterol Direct HDL Cholesterol Urine WBC (Auto) Urine Creatinine Urine Total Protein Vancomycin Trough Rheumatoid Factor Complement C4 Crossmatch 09/16/16 09/16/16 09/16/16 12:04 12:10 13:55 WBC RBC Hgb Hct MCV MCH MCHC RDW Plt Count Lymph % (Auto) Eddy % (Auto) Lymph # Eddy # Seg Neutrophils % Seg Neuts % (Manual) Lymphocytes % (Manual) Monocytes % (Manual) Eosinophils % (Manual) Basophils % (Manual) Nucleated RBC % Seg Neutrophils # Seg Neutrophils # Man Lymphocytes # (Manual) Monocytes # (Manual) Eosinophils # (Manual) Fibrinogen dRVVT Confirm Interp Factor V Activity POC ABG pH POC ABG pCO2 32.9 L POC ABG pO2 Sodium Potassium Chloride Carbon Dioxide BUN Creatinine Glucose POC Glucose 185 H Lactic Acid Calcium Phosphorus Magnesium Direct Bilirubin Troponin T C-Reactive Protein Total Protein Albumin Triglycerides Cholesterol LDL Cholesterol Direct HDL Cholesterol Urine WBC (Auto) Urine Creatinine Urine Total Protein Vancomycin Trough Rheumatoid Factor Complement C4 Crossmatch See Detail 09/16/16 09/16/16 09/16/16 17:55 19:19 23:48 WBC RBC Hgb Hct MCV MCH MCHC RDW Plt Count Lymph % (Auto) Eddy % (Auto) Lymph # Eddy # Seg Neutrophils % Seg Neuts % (Manual) Lymphocytes % (Manual) Monocytes % (Manual) Eosinophils % (Manual) Basophils % (Manual) Nucleated RBC % Seg Neutrophils # Seg Neutrophils # Man Lymphocytes # (Manual) Monocytes # (Manual) Eosinophils # (Manual) Fibrinogen dRVVT Confirm Interp Factor V Activity POC ABG pH POC ABG pCO2 POC ABG pO2 Sodium Potassium Chloride Carbon Dioxide BUN Creatinine Glucose POC Glucose 222 H 107 H Lactic Acid Calcium Phosphorus Magnesium Direct Bilirubin Troponin T C-Reactive Protein Total Protein Albumin Triglycerides Cholesterol LDL Cholesterol Direct HDL Cholesterol Urine WBC (Auto) Urine Creatinine 47.4 H Urine Total Protein 16 H Vancomycin Trough Rheumatoid Factor Complement C4 Crossmatch 09/17/16 09/17/16 09/17/16 03:45 03:45 04:55 WBC 19.6 H RBC 3.41 L Hgb 8.5 L Hct 26.7 L MCV 78 L MCH 25 L MCHC RDW 19.9 H Plt Count Lymph % (Auto) 9.3 L Eddy % (Auto) Lymph # Eddy # 1.2 H Seg Neutrophils % 83.9 H Seg Neuts % (Manual) Lymphocytes % (Manual) Monocytes % (Manual) Eosinophils % (Manual) Basophils % (Manual) Nucleated RBC % Seg Neutrophils # 16.4 H Seg Neutrophils # Man Lymphocytes # (Manual) Monocytes # (Manual) Eosinophils # (Manual) Fibrinogen dRVVT Confirm Interp Factor V Activity POC ABG pH POC ABG pCO2 POC ABG pO2 Sodium 146 H Potassium 5.1 H Chloride 110.9 H Carbon Dioxide 16 L BUN 146 H Creatinine 4.0 H Glucose 108 H POC Glucose 133 H Lactic Acid Calcium Phosphorus Magnesium 3.00 H Direct Bilirubin Troponin T C-Reactive Protein Total Protein Albumin Triglycerides Cholesterol LDL Cholesterol Direct HDL Cholesterol Urine WBC (Auto) Urine Creatinine Urine Total Protein Vancomycin Trough Rheumatoid Factor Complement C4 Crossmatch 09/17/16 09/17/16 09/17/16 11:15 17:33 23:47 WBC RBC Hgb Hct MCV MCH MCHC RDW Plt Count Lymph % (Auto) Eddy % (Auto) Lymph # Eddy # Seg Neutrophils % Seg Neuts % (Manual) Lymphocytes % (Manual) Monocytes % (Manual) Eosinophils % (Manual) Basophils % (Manual) Nucleated RBC % Seg Neutrophils # Seg Neutrophils # Man Lymphocytes # (Manual) Monocytes # (Manual) Eosinophils # (Manual) Fibrinogen dRVVT Confirm Interp Factor V Activity POC ABG pH POC ABG pCO2 POC ABG pO2 Sodium Potassium Chloride Carbon Dioxide BUN Creatinine Glucose POC Glucose 176 H 246 H 148 H Lactic Acid Calcium Phosphorus Magnesium Direct Bilirubin Troponin T C-Reactive Protein Total Protein Albumin Triglycerides Cholesterol LDL Cholesterol Direct HDL Cholesterol Urine WBC (Auto) Urine Creatinine Urine Total Protein Vancomycin Trough Rheumatoid Factor Complement C4 Crossmatch 09/18/16 09/18/16 09/18/16 05:33 08:31 08:31 WBC 18.0 H RBC 3.17 L Hgb 9.0 L Hct 25.7 L MCV MCH MCHC 35 H RDW 20.4 H Plt Count Lymph % (Auto) Eddy % (Auto) Lymph # Eddy # Seg Neutrophils % Seg Neuts % (Manual) Lymphocytes % (Manual) Monocytes % (Manual) Eosinophils % (Manual) Basophils % (Manual) Nucleated RBC % Seg Neutrophils # Seg Neutrophils # Man Lymphocytes # (Manual) Monocytes # (Manual) Eosinophils # (Manual) Fibrinogen dRVVT Confirm Interp Factor V Activity POC ABG pH POC ABG pCO2 POC ABG pO2 Sodium Potassium Chloride Carbon Dioxide 15 L BUN 124 H Creatinine 3.8 H Glucose POC Glucose 120 H Lactic Acid Calcium 8.1 L Phosphorus Magnesium Direct Bilirubin Troponin T C-Reactive Protein Total Protein Albumin Triglycerides Cholesterol LDL Cholesterol Direct HDL Cholesterol Urine WBC (Auto) Urine Creatinine Urine Total Protein Vancomycin Trough Rheumatoid Factor Complement C4 Crossmatch 09/18/16 09/18/16 09/18/16 12:03 15:34 17:50 WBC RBC Hgb Hct MCV MCH MCHC RDW Plt Count Lymph % (Auto) Eddy % (Auto) Lymph # Eddy # Seg Neutrophils % Seg Neuts % (Manual) Lymphocytes % (Manual) Monocytes % (Manual) Eosinophils % (Manual) Basophils % (Manual) Nucleated RBC % Seg Neutrophils # Seg Neutrophils # Man Lymphocytes # (Manual) Monocytes # (Manual) Eosinophils # (Manual) Fibrinogen dRVVT Confirm Interp Factor V Activity POC ABG pH POC ABG pCO2 25.7 L POC ABG pO2 66 L Sodium Potassium Chloride Carbon Dioxide BUN Creatinine Glucose POC Glucose 156 H 220 H Lactic Acid Calcium Phosphorus Magnesium Direct Bilirubin Troponin T C-Reactive Protein Total Protein Albumin Triglycerides Cholesterol LDL Cholesterol Direct HDL Cholesterol Urine WBC (Auto) Urine Creatinine Urine Total Protein Vancomycin Trough Rheumatoid Factor Complement C4 Crossmatch 09/19/16 09/19/16 09/19/16 06:21 09:50 09:50 WBC 17.1 H RBC 3.49 L Hgb 9.0 L Hct 28.1 L MCV MCH 26 L MCHC RDW 20.8 H Plt Count Lymph % (Auto) 11.5 L Eddy % (Auto) 7.5 H Lymph # Eddy # 1.3 H Seg Neutrophils % 79.8 H Seg Neuts % (Manual) Lymphocytes % (Manual) Monocytes % (Manual) Eosinophils % (Manual) Basophils % (Manual) Nucleated RBC % Seg Neutrophils # 13.7 H Seg Neutrophils # Man Lymphocytes # (Manual) Monocytes # (Manual) Eosinophils # (Manual) Fibrinogen dRVVT Confirm Interp Factor V Activity POC ABG pH POC ABG pCO2 POC ABG pO2 Sodium Potassium Chloride 108.6 H Carbon Dioxide 15 L BUN 125 H Creatinine 4.1 H Glucose 124 H POC Glucose 119 H Lactic Acid Calcium Phosphorus Magnesium Direct Bilirubin Troponin T C-Reactive Protein Total Protein Albumin Triglycerides Cholesterol LDL Cholesterol Direct HDL Cholesterol Urine WBC (Auto) Urine Creatinine Urine Total Protein Vancomycin Trough Rheumatoid Factor Complement C4 Crossmatch 09/19/16 09/19/16 09/19/16 11:25 17:53 23:36 WBC RBC Hgb Hct MCV MCH MCHC RDW Plt Count Lymph % (Auto) Eddy % (Auto) Lymph # Eddy # Seg Neutrophils % Seg Neuts % (Manual) Lymphocytes % (Manual) Monocytes % (Manual) Eosinophils % (Manual) Basophils % (Manual) Nucleated RBC % Seg Neutrophils # Seg Neutrophils # Man Lymphocytes # (Manual) Monocytes # (Manual) Eosinophils # (Manual) Fibrinogen dRVVT Confirm Interp Factor V Activity POC ABG pH POC ABG pCO2 POC ABG pO2 Sodium Potassium Chloride Carbon Dioxide BUN Creatinine Glucose POC Glucose 160 H 245 H 121 H Lactic Acid Calcium Phosphorus Magnesium Direct Bilirubin Troponin T C-Reactive Protein Total Protein Albumin Triglycerides Cholesterol LDL Cholesterol Direct HDL Cholesterol Urine WBC (Auto) Urine Creatinine Urine Total Protein Vancomycin Trough Rheumatoid Factor Complement C4 Crossmatch 09/20/16 09/20/16 09/20/16 04:10 04:10 04:10 WBC 17.0 H RBC 3.21 L Hgb 8.2 L Hct 25.5 L MCV MCH 26 L MCHC RDW 20.9 H Plt Count Lymph % (Auto) Eddy % (Auto) Lymph # Eddy # Seg Neutrophils % Seg Neuts % (Manual) Lymphocytes % (Manual) Monocytes % (Manual) Eosinophils % (Manual) Basophils % (Manual) Nucleated RBC % Seg Neutrophils # Seg Neutrophils # Man Lymphocytes # (Manual) Monocytes # (Manual) Eosinophils # (Manual) Fibrinogen dRVVT Confirm Interp Factor V Activity POC ABG pH POC ABG pCO2 POC ABG pO2 Sodium Potassium Chloride 111.0 H Carbon Dioxide 16 L BUN 129 H Creatinine 3.7 H Glucose 115 H POC Glucose Lactic Acid Calcium 8.2 L Phosphorus Magnesium Direct Bilirubin Troponin T C-Reactive Protein Total Protein Albumin Triglycerides 243 H Cholesterol LDL Cholesterol Direct HDL Cholesterol Urine WBC (Auto) Urine Creatinine Urine Total Protein Vancomycin Trough Rheumatoid Factor Complement C4 Crossmatch 09/20/16 09/20/16 09/20/16 05:40 11:52 16:50 WBC RBC Hgb Hct MCV MCH MCHC RDW Plt Count Lymph % (Auto) Eddy % (Auto) Lymph # Eddy # Seg Neutrophils % Seg Neuts % (Manual) Lymphocytes % (Manual) Monocytes % (Manual) Eosinophils % (Manual) Basophils % (Manual) Nucleated RBC % Seg Neutrophils # Seg Neutrophils # Man Lymphocytes # (Manual) Monocytes # (Manual) Eosinophils # (Manual) Fibrinogen dRVVT Confirm Interp Factor V Activity POC ABG pH POC ABG pCO2 POC ABG pO2 Sodium Potassium Chloride Carbon Dioxide BUN Creatinine Glucose POC Glucose 131 H 183 H 236 H Lactic Acid Calcium Phosphorus Magnesium Direct Bilirubin Troponin T C-Reactive Protein Total Protein Albumin Triglycerides Cholesterol LDL Cholesterol Direct HDL Cholesterol Urine WBC (Auto) Urine Creatinine Urine Total Protein Vancomycin Trough Rheumatoid Factor Complement C4 Crossmatch 09/20/16 09/21/16 09/21/16 23:51 03:30 04:44 WBC RBC Hgb Hct MCV MCH MCHC RDW Plt Count Lymph % (Auto) Eddy % (Auto) Lymph # Eddy # Seg Neutrophils % Seg Neuts % (Manual) Lymphocytes % (Manual) Monocytes % (Manual) Eosinophils % (Manual) Basophils % (Manual) Nucleated RBC % Seg Neutrophils # Seg Neutrophils # Man Lymphocytes # (Manual) Monocytes # (Manual) Eosinophils # (Manual) Fibrinogen dRVVT Confirm Interp Factor V Activity POC ABG pH POC ABG pCO2 POC ABG pO2 Sodium Potassium Chloride Carbon Dioxide BUN Creatinine Glucose POC Glucose 114 H 141 H Lactic Acid Calcium Phosphorus Magnesium 2.70 H Direct Bilirubin Troponin T C-Reactive Protein Total Protein Albumin Triglycerides Cholesterol LDL Cholesterol Direct HDL Cholesterol Urine WBC (Auto) Urine Creatinine Urine Total Protein Vancomycin Trough Rheumatoid Factor Complement C4 Crossmatch 09/21/16 09/21/16 09/21/16 07:45 07:45 10:01 WBC 13.8 H RBC 2.94 L Hgb 7.5 L Hct 23.5 L MCV MCH 26 L MCHC RDW 21.2 H Plt Count Lymph % (Auto) 6.9 L Eddy % (Auto) 9.4 H Lymph # 0.9 L Eddy # 1.3 H Seg Neutrophils % 83.2 H Seg Neuts % (Manual) Lymphocytes % (Manual) Monocytes % (Manual) Eosinophils % (Manual) Basophils % (Manual) Nucleated RBC % Seg Neutrophils # 11.5 H Seg Neutrophils # Man Lymphocytes # (Manual) Monocytes # (Manual) Eosinophils # (Manual) Fibrinogen dRVVT Confirm Interp Factor V Activity POC ABG pH 7.308 L POC ABG pCO2 31.9 L POC ABG pO2 148 H Sodium 147 H Potassium Chloride 114.2 H Carbon Dioxide 15 L BUN 120 H Creatinine 3.9 H Glucose 156 H POC Glucose Lactic Acid Calcium 8.2 L Phosphorus Magnesium Direct Bilirubin Troponin T C-Reactive Protein Total Protein Albumin Triglycerides Cholesterol LDL Cholesterol Direct HDL Cholesterol Urine WBC (Auto) Urine Creatinine Urine Total Protein Vancomycin Trough Rheumatoid Factor Complement C4 Crossmatch 09/21/16 09/21/16 09/21/16 12:00 12:03 13:00 WBC RBC Hgb Hct MCV MCH MCHC RDW Plt Count Lymph % (Auto) Eddy % (Auto) Lymph # Eddy # Seg Neutrophils % Seg Neuts % (Manual) Lymphocytes % (Manual) Monocytes % (Manual) Eosinophils % (Manual) Basophils % (Manual) Nucleated RBC % Seg Neutrophils # Seg Neutrophils # Man Lymphocytes # (Manual) Monocytes # (Manual) Eosinophils # (Manual) Fibrinogen dRVVT Confirm Interp Factor V Activity POC ABG pH POC ABG pCO2 POC ABG pO2 Sodium Potassium Chloride Carbon Dioxide BUN Creatinine Glucose POC Glucose 163 H Lactic Acid Calcium Phosphorus Magnesium Direct Bilirubin Troponin T C-Reactive Protein Total Protein Albumin Triglycerides Cholesterol LDL Cholesterol Direct HDL Cholesterol Urine WBC (Auto) Urine Creatinine 54.8 H Urine Total Protein Vancomycin Trough 2.3 L Rheumatoid Factor Complement C4 Crossmatch 09/21/16 09/21/16 09/22/16 16:51 23:17 06:27 WBC RBC Hgb Hct MCV MCH MCHC RDW Plt Count Lymph % (Auto) Eddy % (Auto) Lymph # Eddy # Seg Neutrophils % Seg Neuts % (Manual) Lymphocytes % (Manual) Monocytes % (Manual) Eosinophils % (Manual) Basophils % (Manual) Nucleated RBC % Seg Neutrophils # Seg Neutrophils # Man Lymphocytes # (Manual) Monocytes # (Manual) Eosinophils # (Manual) Fibrinogen dRVVT Confirm Interp Factor V Activity POC ABG pH POC ABG pCO2 POC ABG pO2 Sodium Potassium Chloride Carbon Dioxide BUN Creatinine Glucose POC Glucose 206 H 114 H 115 H Lactic Acid Calcium Phosphorus Magnesium Direct Bilirubin Troponin T C-Reactive Protein Total Protein Albumin Triglycerides Cholesterol LDL Cholesterol Direct HDL Cholesterol Urine WBC (Auto) Urine Creatinine Urine Total Protein Vancomycin Trough Rheumatoid Factor Complement C4 Crossmatch 09/22/16 09/22/16 09/22/16 07:50 07:50 12:00 WBC 17.8 H RBC 3.04 L Hgb 8.0 L Hct 24.7 L MCV MCH 26 L MCHC RDW 21.6 H Plt Count Lymph % (Auto) Eddy % (Auto) Lymph # Eddy # Seg Neutrophils % Seg Neuts % (Manual) Lymphocytes % (Manual) Monocytes % (Manual) Eosinophils % (Manual) Basophils % (Manual) Nucleated RBC % Seg Neutrophils # Seg Neutrophils # Man Lymphocytes # (Manual) Monocytes # (Manual) Eosinophils # (Manual) Fibrinogen dRVVT Confirm Interp Factor V Activity POC ABG pH POC ABG pCO2 POC ABG pO2 Sodium 150 H Potassium Chloride 118.2 H Carbon Dioxide 14 L BUN 111 H Creatinine 3.7 H Glucose 157 H POC Glucose 183 H Lactic Acid Calcium Phosphorus Magnesium Direct Bilirubin Troponin T C-Reactive Protein Total Protein Albumin Triglycerides Cholesterol LDL Cholesterol Direct HDL Cholesterol Urine WBC (Auto) Urine Creatinine Urine Total Protein Vancomycin Trough Rheumatoid Factor Complement C4 Crossmatch 09/22/16 09/22/16 09/23/16 17:29 23:10 05:00 WBC 19.2 H RBC 3.13 L Hgb 8.0 L Hct 25.2 L MCV MCH 26 L MCHC RDW 22.1 H Plt Count Lymph % (Auto) Eddy % (Auto) Lymph # Eddy # Seg Neutrophils % Seg Neuts % (Manual) 92.0 H Lymphocytes % (Manual) 3.0 L Monocytes % (Manual) Eosinophils % (Manual) Basophils % (Manual) Nucleated RBC % Seg Neutrophils # Seg Neutrophils # Man 17.7 H Lymphocytes # (Manual) 0.6 L Monocytes # (Manual) Eosinophils # (Manual) Fibrinogen dRVVT Confirm Interp Factor V Activity POC ABG pH POC ABG pCO2 POC ABG pO2 Sodium Potassium Chloride Carbon Dioxide BUN Creatinine Glucose POC Glucose 197 H 169 H Lactic Acid Calcium Phosphorus Magnesium Direct Bilirubin Troponin T C-Reactive Protein Total Protein Albumin Triglycerides Cholesterol LDL Cholesterol Direct HDL Cholesterol Urine WBC (Auto) Urine Creatinine Urine Total Protein Vancomycin Trough Rheumatoid Factor Complement C4 Crossmatch 09/23/16 09/23/16 09/23/16 05:00 05:00 05:10 WBC RBC Hgb Hct MCV MCH MCHC RDW Plt Count Lymph % (Auto) Eddy % (Auto) Lymph # Eddy # Seg Neutrophils % Seg Neuts % (Manual) Lymphocytes % (Manual) Monocytes % (Manual) Eosinophils % (Manual) Basophils % (Manual) Nucleated RBC % Seg Neutrophils # Seg Neutrophils # Man Lymphocytes # (Manual) Monocytes # (Manual) Eosinophils # (Manual) Fibrinogen dRVVT Confirm Interp Factor V Activity POC ABG pH POC ABG pCO2 POC ABG pO2 Sodium 147 H Potassium 3.2 L Chloride 115.7 H Carbon Dioxide 13 L BUN 111 H Creatinine 3.8 H Glucose 194 H POC Glucose 188 H Lactic Acid Calcium 7.3 L D Phosphorus Magnesium Direct Bilirubin Troponin T C-Reactive Protein 3.20 H Total Protein Albumin Triglycerides Cholesterol LDL Cholesterol Direct HDL Cholesterol Urine WBC (Auto) Urine Creatinine Urine Total Protein Vancomycin Trough Rheumatoid Factor Complement C4 Crossmatch 09/23/16 09/23/16 09/23/16 11:37 12:29 18:01 WBC RBC Hgb Hct MCV MCH MCHC RDW Plt Count Lymph % (Auto) Eddy % (Auto) Lymph # Eddy # Seg Neutrophils % Seg Neuts % (Manual) Lymphocytes % (Manual) Monocytes % (Manual) Eosinophils % (Manual) Basophils % (Manual) Nucleated RBC % Seg Neutrophils # Seg Neutrophils # Man Lymphocytes # (Manual) Monocytes # (Manual) Eosinophils # (Manual) Fibrinogen dRVVT Confirm Interp Factor V Activity POC ABG pH POC ABG pCO2 18.9 L POC ABG pO2 143 H Sodium Potassium Chloride Carbon Dioxide BUN Creatinine Glucose POC Glucose 153 H 108 H Lactic Acid Calcium Phosphorus Magnesium Direct Bilirubin Troponin T C-Reactive Protein Total Protein Albumin Triglycerides Cholesterol LDL Cholesterol Direct HDL Cholesterol Urine WBC (Auto) Urine Creatinine Urine Total Protein Vancomycin Trough Rheumatoid Factor Complement C4 Crossmatch 09/23/16 09/23/16 09/24/16 21:19 23:43 05:16 WBC RBC Hgb Hct MCV MCH MCHC RDW Plt Count Lymph % (Auto) Eddy % (Auto) Lymph # Eddy # Seg Neutrophils % Seg Neuts % (Manual) Lymphocytes % (Manual) Monocytes % (Manual) Eosinophils % (Manual) Basophils % (Manual) Nucleated RBC % Seg Neutrophils # Seg Neutrophils # Man Lymphocytes # (Manual) Monocytes # (Manual) Eosinophils # (Manual) Fibrinogen dRVVT Confirm Interp Factor V Activity POC ABG pH POC ABG pCO2 17.3 L POC ABG pO2 112 H Sodium Potassium Chloride Carbon Dioxide BUN Creatinine Glucose POC Glucose 143 H 164 H Lactic Acid Calcium Phosphorus Magnesium Direct Bilirubin Troponin T C-Reactive Protein Total Protein Albumin Triglycerides Cholesterol LDL Cholesterol Direct HDL Cholesterol Urine WBC (Auto) Urine Creatinine Urine Total Protein Vancomycin Trough Rheumatoid Factor Complement C4 Crossmatch 09/24/16 09/24/16 09/24/16 05:21 11:58 17:06 WBC RBC Hgb Hct MCV MCH MCHC RDW Plt Count Lymph % (Auto) Eddy % (Auto) Lymph # Eddy # Seg Neutrophils % Seg Neuts % (Manual) Lymphocytes % (Manual) Monocytes % (Manual) Eosinophils % (Manual) Basophils % (Manual) Nucleated RBC % Seg Neutrophils # Seg Neutrophils # Man Lymphocytes # (Manual) Monocytes # (Manual) Eosinophils # (Manual) Fibrinogen dRVVT Confirm Interp Factor V Activity POC ABG pH POC ABG pCO2 POC ABG pO2 Sodium Potassium Chloride Carbon Dioxide 10 L BUN 103 H Creatinine 4.3 H Glucose 163 H POC Glucose 173 H 167 H Lactic Acid Calcium 6.5 L Phosphorus Magnesium Direct Bilirubin Troponin T C-Reactive Protein Total Protein Albumin Triglycerides Cholesterol LDL Cholesterol Direct HDL Cholesterol Urine WBC (Auto) Urine Creatinine Urine Total Protein Vancomycin Trough Rheumatoid Factor Complement C4 Crossmatch 09/24/16 09/24/16 09/24/16 20:15 21:02 23:48 WBC RBC Hgb Hct MCV MCH MCHC RDW Plt Count Lymph % (Auto) Eddy % (Auto) Lymph # Eddy # Seg Neutrophils % Seg Neuts % (Manual) Lymphocytes % (Manual) Monocytes % (Manual) Eosinophils % (Manual) Basophils % (Manual) Nucleated RBC % Seg Neutrophils # Seg Neutrophils # Man Lymphocytes # (Manual) Monocytes # (Manual) Eosinophils # (Manual) Fibrinogen dRVVT Confirm Interp Factor V Activity POC ABG pH 7.288 L POC ABG pCO2 30.2 L 21.5 L POC ABG pO2 32 L 39 L Sodium Potassium Chloride Carbon Dioxide BUN Creatinine Glucose POC Glucose 109 H Lactic Acid Calcium Phosphorus Magnesium Direct Bilirubin Troponin T C-Reactive Protein Total Protein Albumin Triglycerides Cholesterol LDL Cholesterol Direct HDL Cholesterol Urine WBC (Auto) Urine Creatinine Urine Total Protein Vancomycin Trough Rheumatoid Factor Complement C4 Crossmatch 09/25/16 09/25/16 09/25/16 04:20 04:20 04:20 WBC RBC 2.58 L Hgb 7.0 L Hct 21.0 L MCV MCH 27 L MCHC RDW 23.8 H Plt Count Lymph % (Auto) Eddy % (Auto) Lymph # Eddy # Seg Neutrophils % Seg Neuts % (Manual) Lymphocytes % (Manual) 12.0 L Monocytes % (Manual) Eosinophils % (Manual) 7.0 H Basophils % (Manual) 2.0 H Nucleated RBC % Seg Neutrophils # Seg Neutrophils # Man Lymphocytes # (Manual) 0.9 L Monocytes # (Manual) Eosinophils # (Manual) 0.5 H Fibrinogen dRVVT Confirm Interp Factor V Activity POC ABG pH POC ABG pCO2 POC ABG pO2 Sodium Potassium Chloride Carbon Dioxide 15 L BUN 72 H Creatinine 3.8 H Glucose POC Glucose Lactic Acid Calcium 6.0 L Phosphorus 4.60 H Magnesium 1.60 L Direct Bilirubin Troponin T C-Reactive Protein Total Protein Albumin Triglycerides Cholesterol LDL Cholesterol Direct HDL Cholesterol Urine WBC (Auto) Urine Creatinine Urine Total Protein Vancomycin Trough Rheumatoid Factor Complement C4 Crossmatch 09/25/16 09/25/16 09/25/16 04:57 08:02 10:30 WBC RBC Hgb Hct MCV MCH MCHC RDW Plt Count Lymph % (Auto) Eddy % (Auto) Lymph # Eddy # Seg Neutrophils % Seg Neuts % (Manual) Lymphocytes % (Manual) Monocytes % (Manual) Eosinophils % (Manual) Basophils % (Manual) Nucleated RBC % Seg Neutrophils # Seg Neutrophils # Man Lymphocytes # (Manual) Monocytes # (Manual) Eosinophils # (Manual) Fibrinogen dRVVT Confirm Interp Factor V Activity POC ABG pH POC ABG pCO2 24.7 L POC ABG pO2 152 H Sodium Potassium Chloride Carbon Dioxide BUN Creatinine Glucose POC Glucose 113 H Lactic Acid Calcium Phosphorus Magnesium Direct Bilirubin Troponin T C-Reactive Protein Total Protein Albumin Triglycerides Cholesterol LDL Cholesterol Direct HDL Cholesterol Urine WBC (Auto) Urine Creatinine Urine Total Protein Vancomycin Trough Rheumatoid Factor Complement C4 Crossmatch See Detail 09/25/16 09/25/16 09/25/16 12:05 17:44 23:47 WBC RBC Hgb Hct MCV MCH MCHC RDW Plt Count Lymph % (Auto) Eddy % (Auto) Lymph # Eddy # Seg Neutrophils % Seg Neuts % (Manual) Lymphocytes % (Manual) Monocytes % (Manual) Eosinophils % (Manual) Basophils % (Manual) Nucleated RBC % Seg Neutrophils # Seg Neutrophils # Man Lymphocytes # (Manual) Monocytes # (Manual) Eosinophils # (Manual) Fibrinogen dRVVT Confirm Interp Factor V Activity POC ABG pH POC ABG pCO2 POC ABG pO2 Sodium Potassium Chloride Carbon Dioxide BUN Creatinine Glucose POC Glucose 117 H 119 H 150 H Lactic Acid Calcium Phosphorus Magnesium Direct Bilirubin Troponin T C-Reactive Protein Total Protein Albumin Triglycerides Cholesterol LDL Cholesterol Direct HDL Cholesterol Urine WBC (Auto) Urine Creatinine Urine Total Protein Vancomycin Trough Rheumatoid Factor Complement C4 Crossmatch 09/26/16 09/26/16 09/26/16 04:25 04:25 04:25 WBC RBC 2.65 L Hgb 7.4 L Hct 21.6 L MCV MCH MCHC RDW 22.5 H Plt Count Lymph % (Auto) Eddy % (Auto) Lymph # Eddy # Seg Neutrophils % Seg Neuts % (Manual) Lymphocytes % (Manual) 6.0 L Monocytes % (Manual) Eosinophils % (Manual) 11.0 H Basophils % (Manual) Nucleated RBC % Seg Neutrophils # Seg Neutrophils # Man Lymphocytes # (Manual) 0.4 L Monocytes # (Manual) Eosinophils # (Manual) 0.6 H Fibrinogen dRVVT Confirm Interp Factor V Activity POC ABG pH POC ABG pCO2 POC ABG pO2 Sodium Potassium Chloride 97.0 L Carbon Dioxide 19 L BUN 43 H Creatinine 2.6 H Glucose 130 H POC Glucose Lactic Acid 4.40 H* Calcium 6.7 L Phosphorus Magnesium Direct Bilirubin Troponin T C-Reactive Protein Total Protein Albumin Triglycerides Cholesterol LDL Cholesterol Direct HDL Cholesterol Urine WBC (Auto) Urine Creatinine Urine Total Protein Vancomycin Trough Rheumatoid Factor Complement C4 Crossmatch 09/26/16 09/26/16 09/26/16 05:20 11:44 12:12 WBC RBC Hgb Hct MCV MCH MCHC RDW Plt Count Lymph % (Auto) Eddy % (Auto) Lymph # Eddy # Seg Neutrophils % Seg Neuts % (Manual) Lymphocytes % (Manual) Monocytes % (Manual) Eosinophils % (Manual) Basophils % (Manual) Nucleated RBC % Seg Neutrophils # Seg Neutrophils # Man Lymphocytes # (Manual) Monocytes # (Manual) Eosinophils # (Manual) Fibrinogen dRVVT Confirm Interp Factor V Activity POC ABG pH POC ABG pCO2 27.0 L POC ABG pO2 69 L Sodium Potassium Chloride Carbon Dioxide BUN Creatinine Glucose POC Glucose 121 H 128 H Lactic Acid Calcium Phosphorus Magnesium Direct Bilirubin Troponin T C-Reactive Protein Total Protein Albumin Triglycerides Cholesterol LDL Cholesterol Direct HDL Cholesterol Urine WBC (Auto) Urine Creatinine Urine Total Protein Vancomycin Trough Rheumatoid Factor Complement C4 Crossmatch 09/26/16 09/26/16 09/27/16 18:31 23:40 08:20 WBC RBC Hgb Hct MCV MCH MCHC RDW Plt Count Lymph % (Auto) Eddy % (Auto) Lymph # Eddy # Seg Neutrophils % Seg Neuts % (Manual) Lymphocytes % (Manual) Monocytes % (Manual) Eosinophils % (Manual) Basophils % (Manual) Nucleated RBC % Seg Neutrophils # Seg Neutrophils # Man Lymphocytes # (Manual) Monocytes # (Manual) Eosinophils # (Manual) Fibrinogen dRVVT Confirm Interp Factor V Activity POC ABG pH POC ABG pCO2 POC ABG pO2 Sodium Potassium Chloride Carbon Dioxide BUN Creatinine Glucose POC Glucose 120 H 133 H Lactic Acid 4.10 H* Calcium Phosphorus Magnesium Direct Bilirubin Troponin T C-Reactive Protein Total Protein Albumin Triglycerides Cholesterol LDL Cholesterol Direct HDL Cholesterol Urine WBC (Auto) Urine Creatinine Urine Total Protein Vancomycin Trough Rheumatoid Factor Complement C4 Crossmatch 09/27/16 09/27/16 09/27/16 11:23 15:00 18:15 WBC RBC Hgb Hct MCV MCH MCHC RDW Plt Count Lymph % (Auto) Eddy % (Auto) Lymph # Eddy # Seg Neutrophils % Seg Neuts % (Manual) Lymphocytes % (Manual) Monocytes % (Manual) Eosinophils % (Manual) Basophils % (Manual) Nucleated RBC % Seg Neutrophils # Seg Neutrophils # Man Lymphocytes # (Manual) Monocytes # (Manual) Eosinophils # (Manual) Fibrinogen dRVVT Confirm Interp Factor V Activity POC ABG pH 7.459 H POC ABG pCO2 27.1 L POC ABG pO2 140 H Sodium Potassium Chloride Carbon Dioxide BUN Creatinine Glucose POC Glucose 114 H 127 H Lactic Acid Calcium Phosphorus Magnesium Direct Bilirubin Troponin T C-Reactive Protein Total Protein Albumin Triglycerides Cholesterol LDL Cholesterol Direct HDL Cholesterol Urine WBC (Auto) Urine Creatinine Urine Total Protein Vancomycin Trough Rheumatoid Factor Complement C4 Crossmatch 09/27/16 09/27/16 09/28/16 Unknown Unknown 03:45 WBC RBC 2.49 L Hgb 6.8 L Hct 20.7 L MCV MCH 27 L MCHC RDW 22.1 H Plt Count Lymph % (Auto) Eddy % (Auto) Lymph # Eddy # Seg Neutrophils % Seg Neuts % (Manual) 32.0 L Lymphocytes % (Manual) 12.0 L Monocytes % (Manual) 11.0 H Eosinophils % (Manual) 10.0 H Basophils % (Manual) Nucleated RBC % Seg Neutrophils # Seg Neutrophils # Man Lymphocytes # (Manual) 1.0 L Monocytes # (Manual) 0.9 H Eosinophils # (Manual) 0.8 H Fibrinogen dRVVT Confirm Interp Factor V Activity POC ABG pH POC ABG pCO2 POC ABG pO2 Sodium 135 L 135 L Potassium 3.5 L Chloride 93.6 L 94.4 L Carbon Dioxide 17 L 21 L BUN 45 H 28 H Creatinine 3.3 H 2.5 H Glucose 106 H POC Glucose Lactic Acid Calcium 7.3 L 7.1 L Phosphorus Magnesium Direct Bilirubin Troponin T C-Reactive Protein Total Protein Albumin Triglycerides Cholesterol LDL Cholesterol Direct HDL Cholesterol Urine WBC (Auto) Urine Creatinine Urine Total Protein Vancomycin Trough Rheumatoid Factor Complement C4 Crossmatch 09/28/16 09/28/16 09/28/16 03:45 07:25 11:58 WBC 13.3 H RBC 3.01 L Hgb 8.4 L Hct 25.0 L MCV MCH MCHC RDW 20.5 H Plt Count 128 L Lymph % (Auto) Eddy % (Auto) Lymph # Eddy # Seg Neutrophils % Seg Neuts % (Manual) Lymphocytes % (Manual) 7.0 L Monocytes % (Manual) Eosinophils % (Manual) 6.0 H Basophils % (Manual) Nucleated RBC % Seg Neutrophils # Seg Neutrophils # Man Lymphocytes # (Manual) 0.9 L Monocytes # (Manual) Eosinophils # (Manual) 0.8 H Fibrinogen dRVVT Confirm Interp Factor V Activity POC ABG pH POC ABG pCO2 POC ABG pO2 Sodium Potassium Chloride Carbon Dioxide BUN Creatinine Glucose POC Glucose 121 H Lactic Acid 4.50 H* Calcium Phosphorus Magnesium Direct Bilirubin Troponin T C-Reactive Protein Total Protein Albumin Triglycerides Cholesterol LDL Cholesterol Direct HDL Cholesterol Urine WBC (Auto) Urine Creatinine Urine Total Protein Vancomycin Trough Rheumatoid Factor Complement C4 Crossmatch 09/29/16 09/29/16 09/29/16 06:45 06:45 06:45 WBC 14.9 H RBC 2.74 L Hgb 7.6 L Hct 23.2 L MCV MCH MCHC RDW 20.5 H Plt Count 81 L Lymph % (Auto) Eddy % (Auto) Lymph # Eddy # Seg Neutrophils % Seg Neuts % (Manual) 81.0 H Lymphocytes % (Manual) 4.0 L Monocytes % (Manual) Eosinophils % (Manual) Basophils % (Manual) Nucleated RBC % Seg Neutrophils # Seg Neutrophils # Man 12.1 H Lymphocytes # (Manual) 0.6 L Monocytes # (Manual) Eosinophils # (Manual) Fibrinogen dRVVT Confirm Interp Factor V Activity POC ABG pH POC ABG pCO2 POC ABG pO2 Sodium 133 L Potassium 3.4 L Chloride 92.5 L Carbon Dioxide 21 L BUN 33 H Creatinine 3.0 H Glucose POC Glucose Lactic Acid Calcium 6.6 L Phosphorus Magnesium 1.40 L Direct Bilirubin 0.9 H Troponin T C-Reactive Protein Total Protein 4.3 L Albumin 1.3 L Triglycerides Cholesterol LDL Cholesterol Direct HDL Cholesterol Urine WBC (Auto) Urine Creatinine Urine Total Protein Vancomycin Trough Rheumatoid Factor Complement C4 Crossmatch 09/29/16 09/29/16 09/30/16 17:52 20:12 00:07 WBC RBC Hgb Hct MCV MCH MCHC RDW Plt Count Lymph % (Auto) Eddy % (Auto) Lymph # Eddy # Seg Neutrophils % Seg Neuts % (Manual) Lymphocytes % (Manual) Monocytes % (Manual) Eosinophils % (Manual) Basophils % (Manual) Nucleated RBC % Seg Neutrophils # Seg Neutrophils # Man Lymphocytes # (Manual) Monocytes # (Manual) Eosinophils # (Manual) Fibrinogen dRVVT Confirm Interp Factor V Activity POC ABG pH POC ABG pCO2 POC ABG pO2 Sodium Potassium Chloride Carbon Dioxide BUN Creatinine Glucose POC Glucose 50 L 51 L Lactic Acid Calcium Phosphorus Magnesium Direct Bilirubin Troponin T 0.204 H* C-Reactive Protein Total Protein Albumin Triglycerides Cholesterol 31 L LDL Cholesterol Direct 4 L HDL Cholesterol 3 L Urine WBC (Auto) Urine Creatinine Urine Total Protein Vancomycin Trough Rheumatoid Factor Complement C4 Crossmatch 09/30/16 09/30/16 09/30/16 01:30 05:15 06:10 WBC RBC Hgb Hct MCV MCH MCHC RDW Plt Count Lymph % (Auto) Eddy % (Auto) Lymph # Eddy # Seg Neutrophils % Seg Neuts % (Manual) Lymphocytes % (Manual) Monocytes % (Manual) Eosinophils % (Manual) Basophils % (Manual) Nucleated RBC % Seg Neutrophils # Seg Neutrophils # Man Lymphocytes # (Manual) Monocytes # (Manual) Eosinophils # (Manual) Fibrinogen dRVVT Confirm Interp Factor V Activity POC ABG pH POC ABG pCO2 POC ABG pO2 Sodium 133 L Potassium 3.2 L Chloride 93.2 L Carbon Dioxide 19 L BUN 36 H Creatinine 3.2 H Glucose 104 H POC Glucose 167 H 146 H Lactic Acid Calcium 6.4 L Phosphorus Magnesium 1.60 L Direct Bilirubin Troponin T C-Reactive Protein Total Protein Albumin Triglycerides Cholesterol LDL Cholesterol Direct HDL Cholesterol Urine WBC (Auto) Urine Creatinine Urine Total Protein Vancomycin Trough Rheumatoid Factor Complement C4 Crossmatch 09/30/16 09/30/16 09/30/16 11:26 13:39 18:38 WBC RBC Hgb Hct MCV MCH MCHC RDW Plt Count Lymph % (Auto) Eddy % (Auto) Lymph # Eddy # Seg Neutrophils % Seg Neuts % (Manual) Lymphocytes % (Manual) Monocytes % (Manual) Eosinophils % (Manual) Basophils % (Manual) Nucleated RBC % Seg Neutrophils # Seg Neutrophils # Man Lymphocytes # (Manual) Monocytes # (Manual) Eosinophils # (Manual) Fibrinogen dRVVT Confirm Interp Factor V Activity POC ABG pH 7.479 H POC ABG pCO2 29.8 L POC ABG pO2 117 H Sodium Potassium Chloride Carbon Dioxide BUN Creatinine Glucose POC Glucose 140 H 122 H Lactic Acid Calcium Phosphorus Magnesium Direct Bilirubin Troponin T C-Reactive Protein Total Protein Albumin Triglycerides Cholesterol LDL Cholesterol Direct HDL Cholesterol Urine WBC (Auto) Urine Creatinine Urine Total Protein Vancomycin Trough Rheumatoid Factor Complement C4 Crossmatch 10/01/16 10/01/16 10/01/16 06:00 06:00 12:37 WBC 12.6 H RBC 2.75 L Hgb 7.3 L Hct 23.3 L MCV MCH 27 L MCHC RDW 20.6 H Plt Count 72 L Lymph % (Auto) Eddy % (Auto) Lymph # Eddy # Seg Neutrophils % Seg Neuts % (Manual) 31.0 L Lymphocytes % (Manual) 8.0 L Monocytes % (Manual) Eosinophils % (Manual) Basophils % (Manual) Nucleated RBC % 3.0 H Seg Neutrophils # Seg Neutrophils # Man Lymphocytes # (Manual) 1.0 L Monocytes # (Manual) Eosinophils # (Manual) Fibrinogen dRVVT Confirm Interp Factor V Activity POC ABG pH POC ABG pCO2 POC ABG pO2 Sodium 127 L Potassium Chloride 86.8 L Carbon Dioxide 20 L BUN 42 H Creatinine 3.5 H Glucose POC Glucose 65 L Lactic Acid Calcium 7.0 L Phosphorus Magnesium Direct Bilirubin Troponin T C-Reactive Protein Total Protein Albumin Triglycerides Cholesterol LDL Cholesterol Direct HDL Cholesterol Urine WBC (Auto) Urine Creatinine Urine Total Protein Vancomycin Trough Rheumatoid Factor Complement C4 Crossmatch 10/01/16 10/01/16 10/02/16 17:39 23:32 00:59 WBC RBC Hgb Hct MCV MCH MCHC RDW Plt Count Lymph % (Auto) Eddy % (Auto) Lymph # Eddy # Seg Neutrophils % Seg Neuts % (Manual) Lymphocytes % (Manual) Monocytes % (Manual) Eosinophils % (Manual) Basophils % (Manual) Nucleated RBC % Seg Neutrophils # Seg Neutrophils # Man Lymphocytes # (Manual) Monocytes # (Manual) Eosinophils # (Manual) Fibrinogen dRVVT Confirm Interp Factor V Activity POC ABG pH POC ABG pCO2 POC ABG pO2 Sodium Potassium Chloride Carbon Dioxide BUN Creatinine Glucose POC Glucose 107 H 52 L 145 H Lactic Acid Calcium Phosphorus Magnesium Direct Bilirubin Troponin T C-Reactive Protein Total Protein Albumin Triglycerides Cholesterol LDL Cholesterol Direct HDL Cholesterol Urine WBC (Auto) Urine Creatinine Urine Total Protein Vancomycin Trough Rheumatoid Factor Complement C4 Crossmatch 10/02/16 10/02/16 10/02/16 10:30 10:50 10:50 WBC 14.7 H RBC 2.76 L Hgb 7.4 L Hct 23.6 L MCV MCH 27 L MCHC RDW 20.2 H Plt Count 79 L Lymph % (Auto) Eddy % (Auto) Lymph # Eddy # Seg Neutrophils % Seg Neuts % (Manual) Lymphocytes % (Manual) Monocytes % (Manual) Eosinophils % (Manual) Basophils % (Manual) Nucleated RBC % Seg Neutrophils # Seg Neutrophils # Man Lymphocytes # (Manual) Monocytes # (Manual) Eosinophils # (Manual) Fibrinogen dRVVT Confirm Interp Factor V Activity POC ABG pH 7.486 H POC ABG pCO2 30.1 L POC ABG pO2 108 H Sodium 131 L Potassium 3.4 L Chloride 89.9 L Carbon Dioxide BUN 26 H Creatinine 2.6 H Glucose POC Glucose Lactic Acid Calcium 7.0 L Phosphorus Magnesium Direct Bilirubin Troponin T C-Reactive Protein Total Protein Albumin Triglycerides Cholesterol LDL Cholesterol Direct HDL Cholesterol Urine WBC (Auto) Urine Creatinine Urine Total Protein Vancomycin Trough Rheumatoid Factor Complement C4 Crossmatch Allied health notes reviewed: RT
[2016-10-02 13:42] LABS: Band Neutrophils # (Manual) 0.9 K/mm3; Basophils % (Manual) 0 % (0.0-1.8); Eosinophils % (Manual) 0 % (0.0-4.3); Total Cells Counted 100
[2016-10-02 13:43] LABS: Anisocytosis 1+; Stomatocytes 1+
[2016-10-02 13:44] LABS: Platelet Estimate Consistent w Auto
[2016-10-02] MEDS: MYCAMINE 100 MG in NACL 0.9% 100 ML IV SCH (21:00)
[2016-10-03] MEDS: FLAGYL 500 MG/100 ML 500 MG/100 ML BAG IV SCH ×3 (00:02→17:32)
[2016-10-03] MEDS: VANCOMYCIN PO FEEDTUBE SCH ×4 (00:02→17:31)
[2016-10-03] MEDS: D50W (25GM) Vial IV PRN ×3 (00:02→18:33)
[2016-10-03] MEDS: LEVOPHED DRIP 4 MG/NS 250 ML 4 MG/250 ML BAG IV SCH (00:49)
[2016-10-03] MEDS: HumuLIN R SUB-Q SCH ×3 (00:50→14:15)
--- NOTE | 2016-10-03 02:28 | Cat Scan Report ---
FINAL REPORT PROCEDURE: CT ABDOMEN PELVIS WO CON TECHNIQUE: Computerized axial tomography of the abdomen and pelvis was performed without intravenous contrast. This study is performed without intravascular contrast material and its sensitivity for abdominal and pelvic pathology, including neoplasms, inflammation, abscess, free fluid, thrombosis, arterial dissection and infarction, is reduced compared with a contrast enhanced study. HISTORY: gastric outlet obstruction - needs gtube COMPARISON: 06/15/2016 FINDINGS: Visualized lower thorax: There are infiltrates at the lung bases bilaterally.. Liver: Normal size and attenuation. Spleen: Normal size and attenuation. Gallbladder and biliary system: There has been a cholecystectomy.. Pancreas: Normal. Adrenals: Normal. Kidneys: The kidneys are atrophic.. GI tract: There is a percutaneous gastrostomy tube which is not within the stomach or bowel. Tube may have become dislodged. There is no gastric obstruction or distention. There are thickened and distorted loops of small bowel suggesting diffuse enteritis. There is thickening of the colon to a lesser extent suggesting colitis. There is no specific evidence of ischemic bowel injury. The appendix is not seen. Lymph nodes and mesentery: There is diffuse induration of the mesentery.. Vasculature: Normal. Bladder: Normal. Reproductive organs: Uterus is intact.. Peritoneum: There is moderate ascites. There are pockets of free air in the upper abdomen most likely related to malposition of gastrostomy tube. Perforated bowel considered less likely.. Musculoskeletal structures: No significant abnormality. Other: There is diffuse subcutaneous edema which could be related to heart failure or fluid overload.. IMPRESSION: There is a percutaneous gastrostomy tube which is not within the stomach or bowel. Tube may have become dislodged. There is no gastric obstruction or distention. There are thickened and distorted loops of small bowel suggesting diffuse enteritis. There is thickening of the colon to a lesser extent suggesting colitis. There is no specific evidence of ischemic bowel injury. The appendix is not seen. There is moderate ascites. There are pockets of free air in the upper abdomen most likely related to malposition of gastrostomy tube. Perforated bowel considered less likely. There has been a cholecystectomy. There are infiltrates at the lung bases bilaterally. There is diffuse subcutaneous edema which could be related to heart failure or fluid overload. .
[2016-10-03] MEDS: REGLAN IV SCH ×2 (02:29→08:24)
--- NOTE | 2016-10-03 02:45 | Cat Scan Report ---
FINAL REPORT PROCEDURE: CT HEAD/BRAIN WO CON TECHNIQUE: Computerized tomography of the head was performed without contrast material. HISTORY: ams COMPARISON: 09/11/2016 FINDINGS: Skull and scalp: Normal. Paranasal sinuses: Normal. Ventricles and subarachnoid spaces: There is moderate central and cortical atrophy. There is no hydrocephalus.. Cerebrum: No evidence of hemorrhage, acute infarction or obvious mass. There are old lacunar infarcts in the basal ganglia, caudate nuclei and left thalamus. There is large area of encephalomalacia involving the left parietal, temporal and occipital lobes consistent with an old infarct. There are curvilinear cortical densities in these areas consistent with laminar necrosis with dystrophic calcification. There is new cytotoxic edema in the right parietal lobe consistent with a recent ischemic infarct. Edema from underlying mass is considered unlikely but further evaluation with MRI suggested. Cerebellum and brainstem: No evidence of hemorrhage, acute infarction or mass. Vasculature: Normal. Comments: None. IMPRESSION: There is new cytotoxic edema in the right parietal lobe consistent with a recent ischemic infarct. Edema from underlying mass is considered unlikely but further evaluation with MRI suggested. There are old lacunar infarcts in the bilateral basal ganglia, caudate nuclei and left thalamus. There is large area of encephalomalacia involving the left parietal, temporal and occipital lobes consistent with an old infarct. There are curvilinear cortical densities in these areas consistent with laminar necrosis with dystrophic calcification. There is no hemorrhage.
[2016-10-03 05:40] LABS: Hematocrit 23.7 % (30.3-42.9); Hemoglobin 7.6 gm/dl (10.1-14.3); Mean Corpuscular HGB Conc 32 % (30-34); Mean Corpuscular Hemoglobin 27 pg (28-32); Mean Corpuscular Volume 85 fl (79-97); Red Blood Count 2.77 M/mm3 (3.65-5.03); Red Cell Distribution Width 19.7 % (13.2-15.2)
[2016-10-03 05:42] LABS: Platelet Count 89 K/mm3 (140-440)
[2016-10-03 05:49] LABS: Eosinophils # (Auto) 0.2 K/mm3 (0.0-0.4); Eosinophils % (Auto) 1.3 % (0.0-4.3); Monocytes # (Auto) 0.1 K/mm3 (0.0-0.8); Monocytes % (Auto) 0.5 % (0.0-7.3)
[2016-10-03 06:07] LABS: BUN/Creatinine Ratio 10.35; Calcium 7.2 mg/dL (8.4-10.2)
--- NOTE | 2016-10-03 07:16 | Progress Note ---
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 * Acute hypoxic respiratory failure * Accelerated hypertension * Left renal artery stenosis * Metabolic acidosis w/ respiratory compensation * Hyponatremia - resolved * pAfib Plan: * Patient is s/p monday * Na noted, mix amiodarone on ns * Pressors prn MAP>65 * Rate control per cardiology * Transfusion of pRBC per primary team * Abx/antifungal per ID * Vent management per critical care * Dose medications for renal function * Avoid potential nephrotoxins Subjective Date of service: 10/03/16 Principal diagnosis: Acute resp failure on MVS; S/P Acute CVA; Acute Encephalopathy; JUANITA Interval history: no new event Objective - Exam Narrative Exam: Gen. appearance: Patient lying in bed, no apparent distress, 4. restraints HEENT: Normocephalic, atraumatic, pupils equally round and reactive to light, extraocular movement intact, and no sclericterus,. No JVD or thyromegaly or nodule,neck supple, no carotid bruit ,mucous membranes moist, unable to examine oral cavity Heart: S1, S2, regular rate and rhythm Lungs: Clear to auscultation bilaterally, breathing comfortable Abdomen: Positive bowel sounds, nontender, nondistended, no organomegaly Extremity: No edema, cyanosis, clubbing Skin: No rash, nodules, warm, dry Neuro: Difficult to assess, facial droop, moves all 4 extremities - Vital Signs Vital signs: Vital Signs - 12hr 10/02/16 10/02/16 10/02/16 19:30 19:49 20:00 Temperature 98.6 F Pulse Rate 112 H 115 H 119 H Respiratory 25 H 24 Rate Blood Pressure 107/57 114/67 101/52 O2 Sat by Pulse 98 100 100 Oximetry O2 Sat by Pulse Oximetry [ Assessment] 10/02/16 10/02/16 10/02/16 20:30 21:00 21:30 Temperature Pulse Rate 116 H 106 H 115 H Respiratory 22 24 26 H Rate Blood Pressure 101/57 116/55 110/56 O2 Sat by Pulse 100 100 100 Oximetry O2 Sat by Pulse Oximetry [ Assessment] 10/02/16 10/02/16 10/02/16 22:00 22:14 22:30 Temperature Pulse Rate 120 H 117 H 119 H Respiratory 26 H 25 H 26 H Rate Blood Pressure 112/55 112/55 115/61 O2 Sat by Pulse 100 100 100 Oximetry O2 Sat by Pulse Oximetry [ Assessment] 10/02/16 10/02/16 10/03/16 23:00 23:30 00:00 Temperature 98.0 F Pulse Rate 126 H 101 H 101 H Respiratory 22 26 H 27 H Rate Blood Pressure 110/68 118/54 114/52 O2 Sat by Pulse 100 99 100 Oximetry O2 Sat by Pulse Oximetry [ Assessment] 10/03/16 10/03/16 10/03/16 00:22 00:24 00:30 Temperature Pulse Rate 141 H 114 H Respiratory 26 H Rate Blood Pressure 121/55 110/48 O2 Sat by Pulse 100 100 Oximetry O2 Sat by Pulse 100 Oximetry [ Assessment] 10/03/16 10/03/16 10/03/16 01:00 01:30 02:12 Temperature Pulse Rate 115 H 120 H 119 H Respiratory 25 H 27 H 27 H Rate Blood Pressure 113/51 112/49 130/72 O2 Sat by Pulse 100 100 100 Oximetry O2 Sat by Pulse Oximetry [ Assessment] 10/03/16 10/03/16 10/03/16 02:30 03:00 03:30 Temperature Pulse Rate 120 H 120 H 114 H Respiratory 32 H 29 H 26 H Rate Blood Pressure 106/49 118/82 97/58 O2 Sat by Pulse 100 100 100 Oximetry O2 Sat by Pulse Oximetry [ Assessment] 10/03/16 10/03/16 10/03/16 04:00 04:24 04:30 Temperature 99.1 F Pulse Rate 100 H 99 H 100 H Respiratory 27 H 30 H Rate Blood Pressure 113/57 101/52 98/59 O2 Sat by Pulse 100 100 97 Oximetry O2 Sat by Pulse Oximetry [ Assessment] 10/03/16 10/03/16 10/03/16 05:00 05:30 06:00 Temperature Pulse Rate 97 H 103 H 111 H Respiratory 29 H 33 H 38 H Rate Blood Pressure 90/47 103/50 109/58 O2 Sat by Pulse 98 93 100 Oximetry O2 Sat by Pulse Oximetry [ Assessment] - Lab 10/03/16 05:10 10/03/16 05:10 Most recent lab results Calcium 7.2 mg/dL (8.4-10.2) L 10/03/16 05:10 Phosphorus 4.60 mg/dL (2.5-4.5) H 09/25/16 04:20 Magnesium 1.90 mg/dL (1.7-2.3) 10/01/16 06:00 Urine Creatinine 54.8 mg/dL (0.1-20.0) H 09/21/16 12:00 Urine Sodium 36 mEq/L 09/16/16 19:19 Urine Total Protein 16 mg/dL (5-11.8) H 09/16/16 19:19
[2016-10-03] MEDS ORDERED: NACL 0.9% 100 ML IV PRN (07:23)
[2016-10-03 07:41] LABS: Band Neutrophils # (Manual) 5.3 K/mm3; Basophils % (Manual) 0 % (0.0-1.8); Total Cells Counted 100
[2016-10-03 07:42] LABS: Anisocytosis 1+; Stomatocytes 1+
[2016-10-03 07:43] LABS: Dohle Bodies Few; Platelet Estimate Cons
--- NOTE | 2016-10-03 10:43 | Consultation ---
History of Present Illness - Reason for Consult Consult date: 10/03/16 GJ tube placement - History of Present Illness Patient with a history of anoxic encephalopathy secondary to CVA and multiple other comorbidities. Patient had a gastrostomy tube placed on 09/20/2016. She is noted to have high volume of bilious drainage from her gastrostomy tube. Consult was placed for conversion of her gastrostomy tube to a gastrojejunostomy tube. Past History Past Medical History: diabetes, hypertension, renal failure, other (Medical noncompliance) Past Surgical History: cholecystectomy (per chart review) Social history: other (per chart review, family denied any smoking or alcohol history on admission). denies: smoking, alcohol abuse, prescription drug abuse , IV drug use Family history: hypertension (per chart review) Medications and Allergies Allergies Allergy/AdvReac Type Severity Reaction Status Date / Time No Known Allergies Allergy Verified 04/14/15 06:02 Home Medications Medication Instructions Recorded Confirmed Last Taken Type Acetaminophen [Tylenol Arthritis] 650 mg PO QID PRN #30 tablet.er 02/15/1609/12 Unknown Rx Albuterol Sulfate [Proventil HFA] 6.7 gm INHALATION Q4-6H 02/15/16 09/12/16 History Insulin Glargine [Lantus VIAL] 30 units SQ QHS 02/15/16 09/12/16 02/15/16 History Clonidine HCl [Catapres] 0.3 mg PO TID #90 tablet 06/15/16 09/12/16 Unknown Rx Lisinopril [Zestril] 40 mg PO BID #60 tablet 06/15/16 09/12/16 Unknown Rx Polyethylene Glycol 3350 [Miralax 17 gm PO QDAY PRN #10 packet 06/15/16 Unknown Rx 3350] Albuterol 2 inhalation INHALATION Q4HR PRN 09/12/16 09/12/16 Unknown History AtorvaSTATin [Lipitor] 20 mg PO QHS 09/12/16 09/12/16 Unknown History Flovent 110 MCG/PUFF HFA 1 inhalation INHALATION QHS 09/12/16 09/12/16 Unknown History Furosemide [Lasix] 20 mg PO QDAY 09/12/16 09/12/16 Unknown History HumaLOG VIAL 45 units SUB-Q TID 09/12/16 09/12/16 Unknown History Insulin Aspart [NovoLOG Flexpen] 30 units SUB-Q TID MDD 30 Units 09/12/16 Unknown History Labetalol HCl 300 mg PO BID 09/12/16 09/12/16 Unknown History Spironolactone [Aldactone] 25 mg PO QDAY 09/12/16 09/12/16 Unknown History hydrALAZINE [Apresoline] 25 mg PO BID 09/12/16 09/12/16 Unknown History Active Meds: Active Medications Lipase/Protease/Amylase (Mary Reza 10,500 Unit) 1 each FEEDTUBE PRN PRN PRN Reason: For Clogged Feeding Tube Aspirin (Aspirin) 325 mg PO QDAY AGUSTIN Last Admin: 10/02/16 10:13 Dose: 325 mg Atorvastatin Calcium (Lipitor) 40 mg PO QHS AGUSTIN Last Admin: 10/02/16 21:01 Dose: 40 mg Dextrose (D50w (25gm)) 50 gm IV PRN PRN PRN Reason: hypoglycemia Last Admin: 10/03/16 00:02 Dose: 50 gm Epoetin Mariusz (Epogen) 20,000 unit IV KERWIN PRN PRN Reason: hemodialysis Haloperidol Lactate (Haldol) 5 mg IV Q6H PRN PRN Reason: Unrespon. to mult. doses BZD's Last Admin: 09/16/16 16:42 Dose: 5 mg Heparin Sodium (Porcine) (Heparin) 5,000 unit IV KERWIN PRN PRN Reason: hemodialysis Last Admin: 10/01/16 14:54 Dose: 5,000 unit Hydralazine HCl (Apresoline) 10 mg IV Q6H PRN PRN Reason: SBP > 160 Last Admin: 09/21/16 16:13 Dose: 10 mg Hydrophilic Ointment (Vaseline Lip Therapy) 1 applic TP Q2HR PRN PRN Reason: Dry Lips Last Admin: 09/17/16 22:20 Dose: 1 applic Phenylephrine HCl 100 mg/ (Sodium Chloride) 100 mls @ 3 mls/hr IV TITR AGUSTIN; 50 MCG/MIN PRN Reason: Protocol Last Titration: 09/29/16 08:10 Dose: 0 mcg/min, 0 mls/hr Vasopressin 20 unit/ Sodium (Chloride) 101 mls @ 9.09 mls/hr IV TITR AGUSTIN; 0.03 UNITS/MIN PRN Reason: Protocol Last Titration: 09/30/16 14:30 Dose: 0 units/min, 0 mls/hr Norepinephrine (Levophed Drip 4 Mg/Ns 250 Ml) 4 mg in 250 mls @ 7.5 mls/hr IV TITR AGUSTIN; 2 MCG/MIN PRN Reason: Protocol Last Titration: 10/03/16 02:00 Dose: 2 mcg/min, 7.5 mls/hr Amiodarone HCl 900 mg/ (Dextrose) 500 mls @ 16.66 mls/hr IV DIRECT AGUSTIN; 0.5 MG/MIN PRN Reason: Protocol Last Admin: 09/30/16 12:10 Dose: 0.5 mg/min, 16.66 mls/hr Metronidazole (Flagyl 500 Mg/100 Ml) 500 mg in 100 mls @ 100 mls/hr IV Q8H AGUSTIN Last Admin: 10/03/16 07:58 Dose: 100 mls/hr Micafungin Sodium 100 mg/ (Sodium Chloride) 100 mls @ 100 mls/hr IV Q24H AGUSTIN PRN Reason: Protocol Last Infusion: 10/02/16 22:00 Dose: 100 mls/hr Sodium Chloride (Nacl 0.9%) 100 mls @ 999 mls/hr IV KERWIN PRN PRN Reason: Hypotension Fat Emulsion Intravenous (Intralipid 20%) 250 mls @ 21 mls/hr IV DAILY@1999 [facility] Stop: 10/03/16 20:01 Amino Acids/Electrolytes/Dextrose (Tpn Adult) 3,000 mls @ 82 mls/hr IV DAILY@ 1999 AGUSTIN PRN Reason: Protocol Stop: 10/03/16 20:01 Sodium Chloride (Nacl 0.9%) 100 mls @ 999 mls/hr IV KERWIN PRN PRN Reason: Hypotension Potassium Chloride (Kcl 10meq/100ml) 10 meq in 100 mls @ 100 mls/hr IV Q1H [facility] Stop: 10/03/16 14:59 Insulin Human Regular (Novolin R) 0 units SUB-Q Q6HR AGUSTIN PRN Reason: Protocol Last Admin: 10/03/16 06:17 Dose: Not Given Labetalol HCl (Normodyne) 20 mg IV Q4H PRN PRN Reason: For BP >160/100 Last Admin: 09/21/16 15:26 Dose: 20 mg Lorazepam (Ativan) 2 mg IV Q4H PRN PRN Reason: Agitation Last Admin: 09/18/16 17:47 Dose: 2 mg Metoclopramide HCl (Reglan) 5 mg IV Q6H AGUSTIN Last Admin: 10/03/16 08:24 Dose: 5 mg Metoprolol Tartrate (Lopressor) 2.5 mg IV Q4H PRN PRN Reason: HR >130 Last Admin: 10/01/16 01:50 Dose: 2.5 mg Multi-Ingred Cream/Lotion/Oil/Oint (Artificial Tears Ophth Oint) 1 applic OU Q4HR PRN PRN Reason: Dry Eye(s) Ondansetron HCl (Zofran) 4 mg IV Q8H PRN PRN Reason: N/V unrelieved by Reglan Last Admin: 09/22/16 09:43 Dose: 4 mg Pantoprazole Sodium (Protonix) 40 mg IV BID [facility] Last Admin: 10/02/16 21:01 Dose: 40 mg Simple Syrup (Simple Syrup) 30 ml FEEDTUBE PRN PRN PRN Reason: Hypoglycemia Simple Syrup (Simple Syrup) 15 ml FEEDTUBE PRN PRN PRN Reason: Hypoglycemia Sodium Bicarbonate (Sodium Bicarbonate) 325 mg FEEDTUBE PRN PRN PRN Reason: For Clogged Feeding Tube Sodium Chloride (Nacl 0.9% 500 Ml) 1 ml IV DIRECT [facility] Last Admin: 09/16/16 16:43 Dose: 1 ml Sodium Chloride (Sodium Chloride Flush Syringe 10 Ml) 10 ml IV PRN PRN PRN Reason: LINE FLUSH Vancomycin HCl (Vancomycin Po) 250 mg FEEDTUBE Q6HR [facility] Last Admin: 10/03/16 05:11 Dose: 250 mg Exam - Constitutional Vitals: Temp Pulse Resp BP Pulse Ox 98.4 F 93 H 23 132/66 100 10/03/16 08:00 10/03/16 09:09 10/03/16 09:00 10/03/16 09:09 10/03/16 09:09 General appearance: Present: obese, other (on vent, non-responsive) - Neck Neck: Present: supple - Respiratory Respiratory effort: normal - Cardiovascular Rhythm: regular - Abdominal Female genitourinary: Present: deferred - Rectal Rectal Exam: deferred Results - Labs CBC & Chem 7: 10/03/16 05:10 10/03/16 05:10 Labs: Abnormal lab results 10/02/16 10/02/16 10/02/16 Range/Units 10:30 10:50 10:50 WBC 14.7 H (4.5-11.0) K/mm3 RBC 2.76 L (3.65-5.03) M/mm3 Hgb 7.4 L (10.1-14.3) gm/dl Hct 23.6 L (30.3-42.9) % MCH 27 L (28-32) pg RDW 20.2 H (13.2-15.2) % Plt Count 79 L (140-440) K/mm3 Seg Neuts % (Manual) 86.0 H (40.0-70.0) % Lymphocytes % (Manual) 6.0 L (13.4-35.0) % Seg Neutrophils # (1.8-7.7) K/mm3 Seg Neutrophils # Man 12.6 H (1.8-7.7) K/mm3 Lymphocytes # (Manual) 0.9 L (1.2-5.4) K/mm3 POC ABG pH 7.486 H (7.35-7.45) POC ABG pCO2 30.1 L (35-45) POC ABG pO2 108 H (80-105) Sodium 131 L (137-145) mmol/L Potassium 3.4 L (3.6-5.0) mmol/L Chloride 89.9 L (98-107) mmol/L Carbon Dioxide (22-30) mmol/L BUN 26 H (7-17) mg/dL Creatinine 2.6 H (0.7-1.2) mg/dL POC Glucose (70-105) Calcium 7.0 L (8.4-10.2) mg/dL 10/02/16 10/03/16 10/03/16 Range/Units 23:45 00:45 05:10 WBC 12.9 H (4.5-11.0) K/mm3 RBC 2.77 L (3.65-5.03) M/mm3 Hgb 7.6 L (10.1-14.3) gm/dl Hct 23.7 L (30.3-42.9) % MCH 27 L (28-32) pg RDW 19.7 H (13.2-15.2) % Plt Count 89 L (140-440) K/mm3 Seg Neuts % (Manual) (40.0-70.0) % Lymphocytes % (Manual) 8.0 L (13.4-35.0) % Seg Neutrophils # 11.9 H (1.8-7.7) K/mm3 Seg Neutrophils # Man (1.8-7.7) K/mm3 Lymphocytes # (Manual) 1.0 L (1.2-5.4) K/mm3 POC ABG pH (7.35-7.45) POC ABG pCO2 (35-45) POC ABG pO2 (80-105) Sodium (137-145) mmol/L Potassium (3.6-5.0) mmol/L Chloride (98-107) mmol/L Carbon Dioxide (22-30) mmol/L BUN (7-17) mg/dL Creatinine (0.7-1.2) mg/dL POC Glucose 55 L 199 H (70-105) Calcium (8.4-10.2) mg/dL 10/03/16 Range/Units 05:10 WBC (4.5-11.0) K/mm3 RBC (3.65-5.03) M/mm3 Hgb (10.1-14.3) gm/dl Hct (30.3-42.9) % MCH (28-32) pg RDW (13.2-15.2) % Plt Count (140-440) K/mm3 Seg Neuts % (Manual) (40.0-70.0) % Lymphocytes % (Manual) (13.4-35.0) % Seg Neutrophils # (1.8-7.7) K/mm3 Seg Neutrophils # Man (1.8-7.7) K/mm3 Lymphocytes # (Manual) (1.2-5.4) K/mm3 POC ABG pH (7.35-7.45) POC ABG pCO2 (35-45) POC ABG pO2 (80-105) Sodium 129 L (137-145) mmol/L Potassium 3.3 L (3.6-5.0) mmol/L Chloride 88.8 L (98-107) mmol/L Carbon Dioxide 20 L (22-30) mmol/L BUN 29 H (7-17) mg/dL Creatinine 2.8 H (0.7-1.2) mg/dL POC Glucose (70-105) Calcium 7.2 L (8.4-10.2) mg/dL - Imaging and Cardiology CT scan - abdomen: report reviewed, image reviewed Assessment and Plan Patient with a gastrostomy tube placed on 09/20/2016. A CT was performed yesterday for preoperative planning of conversion of this gastrostomy tube to a gastrojejunostomy tube. On CT, the gastrotomy tube has become dislodged and is no longer within the lumen of the stomach. Surgery will need to be re- consulted for endoscopic placement of her gastrostomy tube as she already has a hole through the lumen of her stomach. Once the patient has a gastrostomy tube , planning may then take place for conversion to gastrojejunostomy. Alternatively, the patient may have a surgical jejunostomy tube placed.
[2016-10-03] MEDS: ASPIRIN PO SCH (11:49)
--- NOTE | 2016-10-03 11:50 | Progress Note ---
Assessment and Plan - Patient Problems (1) Fungemia Current Visit: Yes Status: Acute Plan to address problem: 1. Continue Micafungin to complete a course through October 14, 2016. 2. I will sign off. Please call again if there are additional questions or concerns. (2) Colitis Current Visit: Yes Status: Acute Plan to address problem: Patient has beenon presumptive enteral Vancomycin/ Flagyl. Recommend continuing both through ~October 14, 2016 as well. (3) Sepsis Current Visit: Yes Status: Acute Qualifiers: Sepsis type: sepsis due to unspecified organism Qualified Code(s): A41.9 - Sepsis, unspecified organism Plan to address problem: Dislodged PEG a likely contributor to sepsis. Surgical plan per primary/ surgeon. (4) Chronic renal insufficiency Current Visit: Yes Status: Acute Qualifiers: Chronic kidney disease stage: C Plan to address problem: Continue renally adjusted meds. Subjective Date of service: 10/03/16 Principal diagnosis: Acute resp failure on MVS; S/P Acute CVA; Acute Encephalopathy; JUANITA Interval history: Remains critically ill in ICU. Objective - Exam Narrative Exam: on multiple gtts, including Amiodarone - Constitutional Vitals: Vital Signs Temp Pulse Resp BP Pulse Ox 98.4 F 109 H 25 H 100/53 100 10/03/16 08:00 10/03/16 11:01 10/03/16 11:01 10/03/16 11:01 10/03/16 11:01 Temperature -Last 24 Hours Temperature 98.4 F Temperature 99.1 F Temperature 98.0 F Temperature 98.6 F Temperature 98.5 F Temperature 98.2 F General appearance: Present: no acute distress, other (minimal level of responsiveness) - Neck Neck: supple, other (right IJ central line in place) - Respiratory Respiratory effort: other (tracheostomy, FiO2 35%) Respiratory: bilateral: rhonchi, negative: rales - Cardiovascular Rhythm: irregularly irregular Extremity abnormal: edema (bilat pedal edema) - Gastrointestinal General gastrointestinal: Present: soft, distended (mild distention), other ((+ ) PEG with signs of inflammation) Rectal Exam: other (rectal tube with decreased amount of liquid stool) - Genitourinary Female genitourinary: other ([place] with dark urine) - Integumentary Integumentary: clear, no jaundice, no rash - Labs CBC & Chem 7: 08/14/17 05:10 10/03/16 05:10 Labs: Abnormal lab results 10/02/16 10/02/16 10/03/16 Range/Units 10:50 23:45 00:45 WBC (4.5-11.0) K/mm3 RBC (3.65-5.03) M/mm3 Hgb (10.1-14.3) gm/dl Hct (30.3-42.9) % MCH (28-32) pg RDW (13.2-15.2) % Plt Count (140-440) K/mm3 Seg Neuts % (Manual) 86.0 H (40.0-70.0) % Lymphocytes % (Manual) 6.0 L (13.4-35.0) % Seg Neutrophils # (1.8-7.7) K/mm3 Seg Neutrophils # Man 12.6 H (1.8-7.7) K/mm3 Lymphocytes # (Manual) 0.9 L (1.2-5.4) K/mm3 Sodium (137-145) mmol/L Potassium (3.6-5.0) mmol/L Chloride (98-107) mmol/L Carbon Dioxide (22-30) mmol/L BUN (7-17) mg/dL Creatinine (0.7-1.2) mg/dL POC Glucose 55 L 199 H (70-105) Calcium (8.4-10.2) mg/dL 10/03/16 10/03/16 Range/Units 05:10 05:10 WBC 12.9 H (4.5-11.0) K/mm3 RBC 2.77 L (3.65-5.03) M/mm3 Hgb 7.6 L (10.1-14.3) gm/dl Hct 23.7 L (30.3-42.9) % MCH 27 L (28-32) pg RDW 19.7 H (13.2-15.2) % Plt Count 89 L (140-440) K/mm3 Seg Neuts % (Manual) (40.0-70.0) % Lymphocytes % (Manual) 8.0 L (13.4-35.0) % Seg Neutrophils # 11.9 H (1.8-7.7) K/mm3 Seg Neutrophils # Man (1.8-7.7) K/mm3 Lymphocytes # (Manual) 1.0 L (1.2-5.4) K/mm3 Sodium 129 L (137-145) mmol/L Potassium 3.3 L (3.6-5.0) mmol/L Chloride 88.8 L (98-107) mmol/L Carbon Dioxide 20 L (22-30) mmol/L BUN 29 H (7-17) mg/dL Creatinine 2.8 H (0.7-1.2) mg/dL POC Glucose (70-105) Calcium 7.2 L (8.4-10.2) mg/dL Microbiology 09/30/16 07:13 Peripheral/Venous Blood Culture - Preliminary NO GROWTH AFTER 72 HOURS 09/25/16 17:12 Peripheral/Venous Blood Fungal Culture - Preliminary No Fungus Isolated At 1 week 09/25/16 17:12 Peripheral/Venous Blood Fungal Culture - Preliminary No Fungus Isolated At 1 week 09/29/16 Unknown Peripheral/Venous Blood Culture - Preliminary NO GROWTH AFTER 72 HOURS 09/23/16 16:55 Peripheral/Venous Blood Culture - Preliminary Silvia Albicans 09/23/16 16:55 Peripheral/Venous Blood Culture - Preliminary Silvia Albicans 09/23/16 16:30 Tracheal Aspirate Sputum Culture - Final 09/23/16 22:30 Urine,Catheterized - Indwelling Catheter Urine Culture - Final 09/13/16 10:30 Urine,[place] Urine Culture - Final NO GROWTH AFTER 48 HOURS 09/13/16 09:04 Peripheral/Venous Blood Culture - Final NO GROWTH AFTER 5 DAYS 09/13/16 08:39 Peripheral/Venous Blood Culture - Final NO GROWTH AFTER 5 DAYS 09/15/16 18:44 Stool Stool Occult Blood (HORTENCIA) - Final 09/13/16 14:06 Tracheal Aspirate Sputum Culture - Final 09/11/16 15:03 Stool C. difficile DNA Amplification - Final 09/10/16 10:58 Urine,Clean Catch Urine Culture - Preliminary NO GROWTH AFTER 48 HOURS 09/07/16 17:39 Tracheal Aspirate Sputum Culture - Final - Imaging and cardiology CT scan - abdomen: report reviewed (PEG is dislodged and not in stomach; evidence of enteritis/ colitis; moderate ascites)
[2016-10-03] MEDS: KCL 10MEQ/100ML 10 MEQ/100 ML BAG IV SCH ×4 (11:54→17:29)
[2016-10-03] MEDS: PROTONIX IV SCH ×2 (11:55→21:52)
--- NOTE | 2016-10-03 11:57 | Progress Note ---
Assessment and Plan Acute hypoxic respiratory failure on mechanical ventilation s/p trach and PEG Acute left MCA CVA echocardiogram demonstrates at least moderate LVH but a normal LV systolic function, EF 50-55%. no thrombus visualized on transthoracic echocardiogram. Hypertension Now patient is hypotensive Acute on chronic renal failure Leukocytosis/Fever Fungemia Diabetes mellitus Anemia requiring transfusion of PRBCs Paroxysmal Afib currently in sinus rhythm s/p failed cardioversion on 09/25 on amiodarone drip and IV digoxin Subjective Date of service: 10/03/16 Principal diagnosis: Acute resp failure on MVS; S/P Acute CVA; Acute Encephalopathy; JUANITA Interval history: No acute cardiac events overnight. Objective Vital Signs Temp Pulse Pulse Resp Resp BP Pulse Ox 10/03/16 11:01 109 H 25 H 100/53 100 10/03/16 10:30 92 H 22 107/56 100 10/03/16 10:00 98 H 21 23 122/58 100 10/03/16 09:30 94 H 28 H 126/63 100 10/03/16 09:09 93 H 132/66 100 10/03/16 09:00 97 H 23 142/75 100 10/03/16 08:30 97 H 28 H 133/74 100 10/03/16 08:00 98.4 F 96 H 101 H 29 H 113/55 100 10/03/16 07:30 94 H 30 H 106/48 100 10/03/16 07:00 107 H 29 H 104/50 100 10/03/16 06:30 98 H 34 H 97/46 89 10/03/16 06:00 111 H 38 H 109/58 100 10/03/16 05:30 103 H 33 H 103/50 93 10/03/16 05:00 97 H 29 H 90/47 98 10/03/16 04:30 100 H 30 H 98/59 97 10/03/16 04:24 99 H 101/52 100 10/03/16 04:00 99.1 F 100 H 27 H 113/57 100 10/03/16 03:30 114 H 26 H 97/58 100 10/03/16 03:00 120 H 29 H 118/82 100 10/03/16 02:30 120 H 32 H 106/49 100 10/03/16 02:12 119 H 27 H 130/72 100 10/03/16 01:30 120 H 27 H 112/49 100 10/03/16 01:00 115 H 25 H 113/51 100 10/03/16 00:30 114 H 26 H 110/48 100 10/03/16 00:24 10/03/16 00:22 141 H 121/55 100 10/03/16 00:00 98.0 F 101 H 27 H 114/52 100 10/02/16 23:30 101 H 26 H 118/54 99 10/02/16 23:00 126 H 22 110/68 100 10/02/16 22:30 119 H 26 H 115/61 100 10/02/16 22:14 117 H 25 H 112/55 100 10/02/16 22:00 120 H 26 H 112/55 100 10/02/16 21:30 115 H 26 H 110/56 100 10/02/16 21:00 106 H 24 116/55 100 10/02/16 20:30 116 H 22 101/57 100 10/02/16 20:00 98.6 F 119 H 24 101/52 100 10/02/16 19:49 115 H 114/67 100 10/02/16 19:30 112 H 25 H 107/57 98 10/02/16 19:00 125 H 25 H 109/68 99 10/02/16 18:30 111 H 23 116/60 100 10/02/16 18:00 109 H 22 122/65 100 10/02/16 17:30 119 H 24 124/67 100 10/02/16 17:00 116 H 25 H 103/51 100 10/02/16 16:56 114 H 103/51 100 10/02/16 16:39 10/02/16 16:32 112 H 29 H 100/54 100 10/02/16 16:30 103 H 29 H 122/56 99 10/02/16 16:00 98.5 F 98 H 30 H 108/44 99 10/02/16 15:30 105 H 28 H 122/54 100 10/02/16 15:00 108 H 30 H 91/44 100 10/02/16 14:30 107 H 28 H 104/51 100 10/02/16 14:00 110 H 29 H 113/50 100 10/02/16 13:42 111 H 30 H 117/55 100 10/02/16 13:30 96 H 34 H 117/55 100 10/02/16 13:00 100 H 29 H 105/53 100 10/02/16 12:30 101 H 30 H 101/52 100 10/02/16 12:00 98.2 F 105 H 31 H 103/47 100 Pulse Ox 10/03/16 11:01 10/03/16 10:30 10/03/16 10:00 10/03/16 09:30 10/03/16 09:09 10/03/16 09:00 10/03/16 08:30 10/03/16 08:00 10/03/16 07:30 10/03/16 07:00 10/03/16 06:30 10/03/16 06:00 10/03/16 05:30 10/03/16 05:00 10/03/16 04:30 10/03/16 04:24 10/03/16 04:00 10/03/16 03:30 10/03/16 03:00 10/03/16 02:30 10/03/16 02:12 10/03/16 01:30 10/03/16 01:00 10/03/16 00:30 10/03/16 00:24 100 10/03/16 00:22 10/03/16 00:00 10/02/16 23:30 10/02/16 23:00 10/02/16 22:30 10/02/16 22:14 10/02/16 22:00 10/02/16 21:30 10/02/16 21:00 10/02/16 20:30 10/02/16 20:00 10/02/16 19:49 10/02/16 19:30 10/02/16 19:00 10/02/16 18:30 10/02/16 18:00 10/02/16 17:30 10/02/16 17:00 10/02/16 16:56 10/02/16 16:39 100 10/02/16 16:32 10/02/16 16:30 10/02/16 16:00 10/02/16 15:30 10/02/16 15:00 10/02/16 14:30 10/02/16 14:00 10/02/16 13:42 10/02/16 13:30 10/02/16 13:00 10/02/16 12:30 10/02/16 12:00 - Physical Examination General: Other (intubated via trach) Cardiac: Positive: Reg Rate and Rhythm - Labs and Meds CBC 10/03/16 Range/Units 05:10 WBC 12.9 H (4.5-11.0) K/mm3 RBC 2.77 L (3.65-5.03) M/mm3 Hgb 7.6 L (10.1-14.3) gm/dl Hct 23.7 L (30.3-42.9) % Plt Count 89 L (140-440) K/mm3 [place] # 0.1 (0.0-0.8) K/mm3 Eos # 0.2 (0.0-0.4) K/mm3 Baso # 0.0 (0.0-0.1) K/mm3 Comprehensive Metabolic Panel 10/03/16 Range/Units 05:10 Sodium 129 L (137-145) mmol/L Potassium 3.3 L (3.6-5.0) mmol/L Chloride 88.8 L (98-107) mmol/L Carbon Dioxide 20 L (22-30) mmol/L BUN 29 H (7-17) mg/dL Creatinine 2.8 H (0.7-1.2) mg/dL Glucose 98 (65-100) mg/dL Calcium 7.2 L (8.4-10.2) mg/dL - Imaging and Cardiology EKG: image reviewed - Allied health notes Allied health notes reviewed: RT
--- NOTE | 2016-10-03 12:04 | Progress Note ---
Assessment and Plan Assessment and plan: --Malfunctioning PEG tube; GI and interventional radiologists evaluating the patient Follow the recommendations --Acute hypoxic respiratory failure vent dependent/unable to wean s/p trach and PEG, continue PEG feeds --Acute large left MCA CVA status post TPA/encephalopathy, Aspirin/statin/ supportive care --Hyponatremia; mild improvement, closely monitor Dialysis is scheduled for today, nephrology following --Hypokalemia; replace per protocol and monitor levels --Paroxysmal A. fib, persistent RVR ,on amiodarone drip, Cardiology following --Chronic anticoagulation need to be started per cardiology, will consult neurology for recommendations --Anemia, status post multiple units of PRBC transfusion, closely monitor H&H and transfuse as needed --Hypotension/ septic shock on pressors, titrate systolic blood pressures to more than 100 --Acute on chronic kidney disease stage III , worsening renal function , nephrology following Hemodialysis as needed --Aspiration pneumonia, Continue vancomycin and Flagyl, ID following --Acute exacerbation of COPD;, Nebulizers tapering dose of steroids antibiotics and ventilatory support, pulmonary following --Anemia requiring blood transfusion; closely monitor H&H and transfuse as needed --2 diabetes mellitus; Accu-Chek sliding scale coverage and ADA diet and insulin as needed --Moderate to severe protein calorie malnutrition with albumin of 2.2, Nutritional supplements, tube feeding, supportive care --DVT prophylaxis with heparin --Full CODE STATUS I talked to son and the brother periodically and updated patient's condition and treatment plan They are aware of patient's poor prognosis Critical care time 31 minutes History Interval history: 46-year-old woman with a history of hypertension, diabetes, asthma, hyperlipidemia, chronic kidney disease and anxiety who was admitted for acute CVA and accelerated hypertension, she had a hx of poor adherence with her medications, and uncontrolled htn. Patient's blood pressure systolically on admission was noted be greater than 260. TPA was started but this was discontinued after 5 minutes because her blood pressure became uncontrolled. The TPA was not initiated again because the patient was outside the TPA window. Hospitalist Physical - Constitutional Vitals: Temp Pulse Resp BP Pulse Ox 98.4 F 109 H 25 H 100/53 100 10/03/16 08:00 10/03/16 11:01 10/03/16 11:01 10/03/16 11:01 10/03/16 11:01 General appearance: Present: no acute distress, obese, other (on vent, non- responsive) - EENT Eyes: Present: PERRL, EOM intact - Neck Neck: Present: supple - Respiratory Respiratory: bilateral: diminished, rhonchi, negative: rales, wheezing - Cardiovascular Rhythm: regular Heart Sounds: Present: S1 & S2 - Extremities Extremities: no ischemia Extremity abnormal: edema - Abdominal General gastrointestinal: soft, non-tender, non-distended, normal bowel sounds, other (PEG in place) - Integumentary Integumentary: Present: clear, warm - Psychiatric Psychiatric: other (unresponsive) - Neurologic Neurologic: other (unresponsive) Results - Labs CBC & Chem 7: 10/03/16 05:10 10/03/16 05:10 Labs: Laboratory Last Values WBC 12.9 K/mm3 (4.5-11.0) H 10/03/16 05:10 RBC 2.77 M/mm3 (3.65-5.03) L 10/03/16 05:10 Hgb 7.6 gm/dl (10.1-14.3) L 10/03/16 05:10 Hct 23.7 % (30.3-42.9) L 10/03/16 05:10 MCV 85 fl (79-97) 10/03/16 05:10 MCH 27 pg (28-32) L 10/03/16 05:10 MCHC 32 % (30-34) 10/03/16 05:10 RDW 19.7 % (13.2-15.2) H 10/03/16 05:10 Plt Count 89 K/mm3 (140-440) L 10/03/16 05:10 Lymph % (Auto) 6.9 % (13.4-35.0) L 09/21/16 07:45 [place] % (Auto) 0.5 % (0.0-7.3) 10/03/16 05:10 Eos % (Auto) 1.3 % (0.0-4.3) 10/03/16 05:10 Baso % (Auto) 0.2 % (0.0-1.8) 09/21/16 07:45 Lymph # 0.9 K/mm3 (1.2-5.4) L 09/21/16 07:45 [place] # 0.1 K/mm3 (0.0-0.8) 10/03/16 05:10 Eos # 0.2 K/mm3 (0.0-0.4) 10/03/16 05:10 Baso # 0.0 K/mm3 (0.0-0.1) 10/03/16 05:10 Add Manual Diff Complete 10/03/16 05:10 Total Counted 100 10/03/16 05:10 Seg Neutrophils % Design Architect 10/03/16 05:10 Seg Neuts % (Manual) 43.0 % (40.0-70.0) 10/03/16 05:10 Band Neutrophils % 41.0 % 10/03/16 05:10 Lymphocytes % (Manual) 8.0 % (13.4-35.0) L 10/03/16 05:10 Reactive Lymphs % (Man) 0 % 10/03/16 05:10 Monocytes % (Manual) 5.0 % (0.0-7.3) 10/03/16 05:10 Eosinophils % (Manual) 3.0 % (0.0-4.3) 10/03/16 05:10 Basophils % (Manual) 0 % (0.0-1.8) 10/03/16 05:10 Metamyelocytes % 0 % 10/03/16 05:10 Myelocytes % 0 % 10/03/16 05:10 Promyelocytes % 0 % 10/03/16 05:10 Blast Cells % 0 % 10/03/16 05:10 Nucleated RBC % Not Reportable 10/03/16 05:10 Seg Neutrophils # 11.9 K/mm3 (1.8-7.7) H 10/03/16 05:10 Seg Neutrophils # Man 5.5 K/mm3 (1.8-7.7) 10/03/16 05:10 Band Neutrophils # 5.3 K/mm3 10/03/16 05:10 Lymphocytes # (Manual) 1.0 K/mm3 (1.2-5.4) L 10/03/16 05:10 Abs React Lymphs (Man) 0.0 K/mm3 10/03/16 05:10 Monocytes # (Manual) 0.6 K/mm3 (0.0-0.8) 10/03/16 05:10 Eosinophils # (Manual) 0.4 K/mm3 (0.0-0.4) 10/03/16 05:10 Basophils # (Manual) 0.0 K/mm3 (0.0-0.1) 10/03/16 05:10 Metamyelocytes # 0.0 K/mm3 10/03/16 05:10 Myelocytes # 0.0 K/mm3 10/03/16 05:10 Promyelocytes # 0.0 K/mm3 10/03/16 05:10 Blast Cells # 0.0 K/mm3 10/03/16 05:10 Pathologist Review 09/13/16 04:00 WBC Morphology Not Reportable 10/03/16 05:10 Hypersegmented Neuts Not Reportable 10/03/16 05:10 Hyposegmented Neuts Not Reportable 10/03/16 05:10 Hypogranular Neuts Not Reportable 10/03/16 05:10 Smudge Cells Not Reportable 10/03/16 05:10 Toxic Granulation Not Reportable 10/03/16 05:10 Toxic Vacuolation Not Reportable 10/03/16 05:10 Dohle Bodies Few 10/03/16 05:10 Pelger-Huet Anomaly Not Reportable 10/03/16 05:10 Jasmina Rods Not Reportable 10/03/16 05:10 Platelet Estimate Cons 10/03/16 05:10 Clumped Platelets Not Reportable 10/03/16 05:10 Plt Clumps, EDTA Not Reportable 10/03/16 05:10 Large Platelets Not Reportable 10/03/16 05:10 Giant Platelets Not Reportable 10/03/16 05:10 Platelet Satelliting Not Reportable 10/03/16 05:10 Plt Morphology Comment Not Reportable 10/03/16 05:10 RBC Morphology Not Reportable 10/03/16 05:10 Dimorphic RBCs Not Reportable 10/03/16 05:10 Polychromasia Not Reportable 10/03/16 05:10 Hypochromasia Not Reportable 10/03/16 05:10 Poikilocytosis Not Reportable 10/03/16 05:10 Anisocytosis 1+ 10/03/16 05:10 Microcytosis Not Reportable 10/03/16 05:10 Macrocytosis Not Reportable 10/03/16 05:10 Spherocytes Not Reportable 10/03/16 05:10 Pappenheimer Bodies Not Reportable 10/03/16 05:10 Sickle Cells Not Reportable 10/03/16 05:10 Target Cells Not Reportable 10/03/16 05:10 Tear Drop Cells Not Reportable 10/03/16 05:10 Ovalocytes Not Reportable 10/03/16 05:10 Stomatocytes 1+ 10/03/16 05:10 Helmet Cells Not Reportable 10/03/16 05:10 [place] Bodies Not Reportable 10/03/16 05:10 [place] Rings Not Reportable 10/03/16 05:10 [place] Cells Not Reportable 10/03/16 05:10 Bite Cells Not Reportable 10/03/16 05:10 Crenated Cell Not Reportable 10/03/16 05:10 Elliptocytes Not Reportable 10/03/16 05:10 Acanthocytes (Spur) Not Reportable 10/03/16 05:10 Rouleaux Not Reportable 10/03/16 05:10 Hemoglobin C Crystals Not Reportable 10/03/16 05:10 Schistocytes Not Reportable 10/03/16 05:10 Malaria parasites Not Reportable 10/03/16 05:10 ESR > 140.0 mm/Hr (0-20) 09/08/16 11:48 Jun Bodies Not Reportable 10/03/16 05:10 Hem Pathologist Commnt No 10/03/16 05:10 PT 13.8 Sec. (12.2-14.9) 09/15/16 05:00 INR 1.01 (0.87-1.13) 09/15/16 05:00 APTT 24.4 Sec. (24.2-36.6) 09/15/16 05:00 Thrombin Time 16.8 Sec. (15.1-19.6) 09/03/16 00:10 Fibrinogen 750 mg/dl (211-480) H 09/08/16 11:48 Lupus Anticoagulant see below 09/12/16 09:59 LA PTT Baseline See scanned report 09/12/16 09:59 dRVVT Confirm Interp Positive (Negative) H 09/12/16 09:59 dRVVT Screen 50:50 See scanned report 09/12/16 09:59 dRVVT Mix Interpret See scanned report 09/12/16 09:59 Protein C Antigen 122 % (70-140) 09/08/16 15:35 Free Protein S 97 % normal (50-147) 09/08/16 15:35 Total Protein S 109 % (70-140) 09/08/16 15:35 Antithrombin III Ag 100 % (80-120) 09/08/16 15:35 Factor V Activity 182 % (65-150) H 09/08/16 15:35 POC ABG pH 7.486 (7.35-7.45) H 10/02/16 10:30 POC ABG pCO2 30.1 (35-45) L 10/02/16 10:30 POC ABG pO2 108 (80-105) H 10/02/16 10:30 POC ABG HCO3 22.7 10/02/16 10:30 POC ABG Total CO2 24 10/02/16 10:30 POC ABG O2 Sat 99 10/02/16 10:30 POC ABG Base Excess -1 10/02/16 10:30 FiO2 30 % 10/02/16 10:30 Sodium 129 mmol/L (137-145) L 10/03/16 05:10 Potassium 3.3 mmol/L (3.6-5.0) L 10/03/16 05:10 Chloride 88.8 mmol/L (98-107) L 10/03/16 05:10 Carbon Dioxide 20 mmol/L (22-30) L 10/03/16 05:10 Anion Gap 24 mmol/L 10/03/16 05:10 BUN 29 mg/dL (7-17) H 10/03/16 05:10 Creatinine 2.8 mg/dL (0.7-1.2) H 10/03/16 05:10 Estimated GFR 22 ml/min 10/03/16 05:10 BUN/Creatinine Ratio 10.35 % 10/03/16 05:10 Glucose 98 mg/dL (65-100) 10/03/16 05:10 POC Glucose 87 (70-105) 10/03/16 05:49 Osmolality 351 Mosm/kg 09/16/16 11:47 Lactic Acid 4.50 mmol/L (0.7-2.0) H* 09/28/16 07:25 Calcium 7.2 mg/dL (8.4-10.2) L 10/03/16 05:10 Phosphorus 4.60 mg/dL (2.5-4.5) H 09/25/16 04:20 Magnesium 1.90 mg/dL (1.7-2.3) 10/01/16 06:00 Total Bilirubin 1.20 mg/dL (0.1-1.2) 09/29/16 06:45 Direct Bilirubin 0.9 mg/dL (0-0.2) H 09/29/16 06:45 Indirect Bilirubin 0.3 mg/dL 09/29/16 06:45 AST 24 units/L (5-40) 09/29/16 06:45 ALT 16 units/L (7-56) 09/29/16 06:45 Alkaline Phosphatase 72 units/L (35-129) 09/29/16 06:45 Ammonia 27.0 umol/L (25-60) 09/07/16 08:37 Total Creatine Kinase 121 units/L (30-135) 09/29/16 20:12 CK-MB (CK-2) < 1.0 ng/mL (0.0-4.0) 09/29/16 20:12 CK-MB (CK-2) Rel Index 0.8 (0-4) 09/29/16 20:12 Troponin T 0.204 ng/mL (0.00-0.029) H* 09/29/16 20:12 C-Reactive Protein 3.20 mg/dL (0.00-1.30) H 09/23/16 05:00 Total Protein 4.3 g/dL (6.3-8.2) L 09/29/16 06:45 Albumin 1.3 g/dL (3.9-5) L 09/29/16 06:45 Albumin/Globulin Ratio 0.4 % 09/29/16 06:45 Triglycerides 137 mg/dL (2-149) 09/29/16 20:12 Cholesterol 31 mg/dL (50-199) L 09/29/16 20:12 LDL Cholesterol Direct 4 mg/dL (50-130) L 09/29/16 20:12 HDL Cholesterol 3 mg/dL (40-59) L 09/29/16 20:12 Cholesterol/HDL Ratio 10.33 % 09/29/16 20:12 Angiotensin Convert Enz See scanned report 09/08/16 11:48 TSH 1.010 mlU/mL (0.270-4.200) 09/07/16 08:37 HCG, Qual Negative (Negative) 09/03/16 00:10 Urine Color Yellow (Yellow) 09/09/16 14:13 Urine Turbidity Slightly-cloudy (Clear) 09/09/16 14:13 Urine pH 5.0 (5.0-7.0) 09/09/16 14:13 Ur Specific [place] 1.012 (1.003-1.030) 09/09/16 14:13 Urine Protein 30 mg/dl mg/dL (Negative) 09/09/16 14:13 Urine Glucose (UA) Neg mg/dL (Negative) 09/09/16 14:13 Urine Ketones Neg mg/dL (Negative) 09/09/16 14:13 Urine Blood Lg (Negative) 09/09/16 14:13 Urine Nitrite Neg (Negative) 09/09/16 14:13 Urine Bilirubin Neg (Negative) 09/09/16 14:13 Urine Urobilinogen < 2.0 mg/dL (<2.0) 09/09/16 14:13 Ur Leukocyte Esterase Sm (Negative) 09/09/16 14:13 Urine WBC (Auto) 25.0 /HPF (0.0-6.0) H 09/09/16 14:13 Urine RBC (Auto) > 182.0 /HPF (0.0-6.0) 09/09/16 14:13 Urine Bacteria (Auto) 1+ /HPF (Negative) 09/09/16 14:13 Urine WBC Clumps 2+ /HPF 09/07/16 02:47 Hyaline Casts 4 /LPF 09/07/16 02:47 Urine Mucus Few /HPF 09/09/16 14:13 Urine Eosinophils None seen (None Seen) 09/07/16 16:00 Urine Total Volume 1350 09/21/16 12:00 Urine Creatinine 54.8 mg/dL (0.1-20.0) H 09/21/16 12:00 Height (in) 67.0 inches 09/21/16 12:00 Weight (lb) 92.0 lbs 09/21/16 12:00 Creatinine Clearance 15 09/21/16 12:00 Urine Sodium 36 mEq/L 09/16/16 19:19 Urine Total Protein 16 mg/dL (5-11.8) H 09/16/16 19:19 Vancomycin Trough 2.3 ug/mL (5.0-20.0) L 09/21/16 13:00 Random Vancomycin 2.3 ug/mL (0-40.0) 09/09/16 03:00 Urine Opiates Screen Presumptive negative 09/03/16 15:11 Urine Methadone Screen Presumptive positive 09/03/16 15:11 Ur Barbiturates Screen Presumptive positive 09/03/16 15:11 Ur Phencyclidine Scrn Presumptive negative 09/03/16 15:11 Ur Amphetamines Screen Presumptive negative 09/03/16 15:11 U Benzodiazepines Scrn Presumptive negative 09/03/16 15:11 Urine Cocaine Screen Presumptive negative 09/03/16 15:11 U Marijuana (THC) Screen Presumptive positive 09/03/16 15:11 Drugs of Abuse Note Disclamer 09/03/16 15:11 Rheumatoid Factor 24 IU/ml (0-13) H 09/08/16 11:48 SAHIL Screen Negative (Negative) 09/07/16 09:20 Proteinase 3 (PR3) Ab <1.0 AI (<1.0) 09/07/16 09:20 Myeloperoxidase Ab <1.0 AI (<1.0) 09/07/16 09:20 Sjogren's Antibody <1.0 AI (<1.0) 09/08/16 15:35 Scl-70 Scleroderma Ab <1.0 AI (<1.0) 09/08/16 15:35 Centromere B Antibody <1.0 AI (<1.0) 09/08/16 12:02 Cardiolipid IgG Ab <14 GPL (<=14) 09/12/16 09:59 Cardiolipid IgA Ab <11 APL (<=11) 09/12/16 09:59 Cardiolipid IgM Ab <12 MPL (<=12) 09/12/16 09:59 Complement C3 148 mg/dL (90-180) 09/07/16 09:20 Complement C4 58 mg/dL (16-47) H 09/07/16 09:20 RPR Nonreactive (Nonreactive) 09/08/16 11:48 Hepatitis A IgM Ab Non-reactive (NonReactive) 09/24/16 14:40 Hep Bs Antigen Non-reactive (Negative) 09/24/16 14:40 Hep B Core IgM Ab Non-reactive (NonReactive) 09/24/16 14:40 Hepatitis C Antibody Non-reactive (NonReactive) 09/24/16 14:40 HIV 1&2 Antibody Rapid Non react (Non React) 09/08/16 11:48 HIV P24 Antigen Non react (Non React) 09/08/16 11:48 Blood Type A POSITIVE 09/25/16 10:30 Antibody Screen TNR 09/25/16 10:30 DELORIS Antibody Screen Negative 09/25/16 10:30 Crossmatch See Detail 09/25/16 10:30
--- NOTE | 2016-10-03 12:38 | Progress Note ---
Assessment and Plan (1) Acute respiratory failure with hypoxia Current Visit: Yes Status: Acute Plan to address problem: - continue aspiration precautions / address VAP bundles - continue to wean oxygen for MAP > 94% - continue bronchodilators and pulmonary toilet - tapered off systemic steroids (no active needs pulmonary-[place]) - s/p tracheostomy - placed back on AC mode after review of ABG and secondary to increased work of breathing - continue daily PSV trials as tolerated (tolerating well today) (2) Acute CVA (cerebrovascular accident) Current Visit: Yes Status: Acute Plan to address problem: - out of tpA window (initially stopped due to uncontrolled HTN) - Left MCA teritory stroke with some midline shift on last CT - seen by neurology and prognosis for recovery of mental status guarded to poor - optimizing secondary prevention modalities now (BP, lipid anti-platelet therapy) - off systemic steroids now (started earlier for edema) (3) Hypertensive emergency Current Visit: Yes Status: Acute Plan to address problem: - stopped all antihypertensives while septic - following cllinically (4) Obesity (BMI 35.0-39.9 without comorbidity) Current Visit: Yes Status: Chronic Plan to address problem: - nutrition consult placed for enteral formulation - follow clinically (5) Type 2 diabetes mellitus Current Visit: Yes Status: Chronic Qualifiers: Diabetes mellitus complication status: D Diabetes mellitus complication detail: D Diabetic retinopathy severity: D Proliferative retinopathy type: P Diabetes mellitus macular edema: D Diabetes mellitus intermediate insulin use : D Laterality: L Chronic kidney disease stage: C Plan to address problem: - continue SSI - discontinued lantus re: hypoglycemia (6) Leukocytosis (leucocytosis) Current Visit: Yes Status: Acute Qualifiers: Leukocytosis type: leukemoid reaction Qualified Code(s): D72.823 - Leukemoid reaction Plan to address problem: - continue cancidas and de-escalate per ID recs - clinically improved (7) Agitation Current Visit: Yes Status: Acute Plan to address problem: - prn sedation / analgesia - tapered off seroquel for now (8) Atrial fibrillation Current Visit: Yes Status: Acute Qualifiers: Atrial fibrillation type: A Plan to address problem: - failed cardioversion earlier - cardiology evaluation ongoing - on amiodarone drip - appears to have converted to sinus (9) JUANITA (acute kidney injury) Current Visit: Yes Status: Acute Plan to address problem: - on Dialysis now - s/p HD/UF yesterday - oliguric (10) Pyrexia of unknown origin Current Visit: Yes Status: Acute Plan to address problem: - will get dopplers as part of a PUO work-up to r/o VTE - continue to treat with AB;'s empirically - continue micafungin (11) Severe sepsis Current Visit: Yes Status: Acute Plan to address problem: - continue AB's and follow cultures - resume vasopressors for MAP < 60mmHg not responsive to volume - continue micafungin - all central vascular access has been discontinued after fungemia reported - care plan formulated with ID input - vascath and PICC pulled with new RIJ placed (trialysis catheter apparently) - clinically much better and again weaning off levophed (12) Emesis Current Visit: Yes Status: Acute Qualifiers: Vomiting type: V Vomiting Intractability: V Nausea presence: N Plan to address problem: - continue PEG to LIS - stopped reglan - apparently G-tube may not be in stomach - IR evaluation ongoing (13) Discharge planning issues Current Visit: Yes Status: Acute Plan to address problem: - she remains critically ill on life sustaining interventions including MVS and at risk for further acute deterioration including .....30' CCT ....intermediate prognosis is guarded Subjective Date of service: 10/03/16 Principal diagnosis: Acute resp failure on MVS; S/P Acute CVA; Acute Encephalopathy; JUANITA Interval history: Seen and examined at bedside; 24 hour events reviewed; nursing and respiratory care staff consulted; no adverse overnight events reported to me; resting peacefully in bed; AMS is persistent; still with significant gastric tube effluent; no gross GI bleeding; no emesis or overt aspiration; no seizure off vasopressors Objective Vital Signs - 12hr 10/03/16 10/03/16 10/03/16 01:00 01:30 02:12 Temperature Pulse Rate 115 H 120 H 119 H Pulse Rate [ From Monitor] Respiratory 25 H 27 H 27 H Rate Respiratory Rate [ Generalized] Blood Pressure 113/51 112/49 130/72 O2 Sat by Pulse 100 100 100 Oximetry 10/03/16 10/03/16 10/03/16 02:30 03:00 03:30 Temperature Pulse Rate 120 H 120 H 114 H Pulse Rate [ From Monitor] Respiratory 32 H 29 H 26 H Rate Respiratory Rate [ Generalized] Blood Pressure 106/49 118/82 97/58 O2 Sat by Pulse 100 100 100 Oximetry 10/03/16 10/03/16 10/03/16 04:00 04:24 04:30 Temperature 99.1 F Pulse Rate 100 H 99 H 100 H Pulse Rate [ From Monitor] Respiratory 27 H 30 H Rate Respiratory Rate [ Generalized] Blood Pressure 113/57 101/52 98/59 O2 Sat by Pulse 100 100 97 Oximetry 10/03/16 10/03/16 10/03/16 05:00 05:30 06:00 Temperature Pulse Rate 97 H 103 H 111 H Pulse Rate [ From Monitor] Respiratory 29 H 33 H 38 H Rate Respiratory Rate [ Generalized] Blood Pressure 90/47 103/50 109/58 O2 Sat by Pulse 98 93 100 Oximetry 10/03/16 10/03/16 10/03/16 06:30 07:00 07:30 Temperature Pulse Rate 98 H 107 H 94 H Pulse Rate [ From Monitor] Respiratory 34 H 29 H 30 H Rate Respiratory Rate [ Generalized] Blood Pressure 97/46 104/50 106/48 O2 Sat by Pulse 89 100 100 Oximetry 10/03/16 10/03/16 10/03/16 08:00 08:30 09:00 Temperature 98.4 F Pulse Rate 96 H 97 H 97 H Pulse Rate [ 101 H From Monitor] Respiratory 29 H 28 H 23 Rate Respiratory Rate [ Generalized] Blood Pressure 113/55 133/74 142/75 O2 Sat by Pulse 100 100 100 Oximetry 10/03/16 10/03/16 10/03/16 09:09 09:30 10:00 Temperature Pulse Rate 93 H 94 H 93 H Pulse Rate [ From Monitor] Respiratory 28 H 21 Rate Respiratory 23 Rate [ Generalized] Blood Pressure 132/66 126/63 122/58 O2 Sat by Pulse 100 100 100 Oximetry 10/03/16 10/03/16 10/03/16 10:30 11:01 11:31 Temperature Pulse Rate 92 H 109 H 94 H Pulse Rate [ From Monitor] Respiratory 22 25 H Rate Respiratory Rate [ Generalized] Blood Pressure 107/56 100/53 92/64 O2 Sat by Pulse 100 100 100 Oximetry 10/03/16 10/03/16 12:00 12:10 Temperature 98.0 F Pulse Rate 93 H 92 H Pulse Rate [ From Monitor] Respiratory 22 Rate Respiratory Rate [ Generalized] Blood Pressure 111/61 111/61 O2 Sat by Pulse 100 100 Oximetry Constitutional: no acute distress, other (encephalopathic; off sedation now) Eyes: non-icteric, other (tracheostomy tube in midline of neck) ENT: oropharynx moist Neck: supple, no lymphadenopathy Effort: mildly labored Ascultation: Bilateral: rales Cardiovascular: regular rate and rhythm Gastrointestinal: hypoactive bowel sounds, soft, non-tender, non-distended Integumentary: normal Extremities: no cyanosis, no edema, pulses normal, no ischemia or petechiae Neurologic: pupils equal and round, other (sedated) Psychiatric: other (unable to assess) CBC and BMP: 10/04/16 06:30 10/04/16 06:30 ABG, PT/INR, D-dimer: ABG POC ABG pH 7.486 (7.35-7.45) H 10/02/16 10:30 POC ABG pCO2 30.1 (35-45) L 10/02/16 10:30 POC ABG pO2 108 (80-105) H 10/02/16 10:30 POC ABG HCO3 22.7 10/02/16 10:30 POC ABG Total CO2 24 10/02/16 10:30 POC ABG O2 Sat 99 10/02/16 10:30 PT/INR, D-dimer PT 13.8 Sec. (12.2-14.9) 09/15/16 05:00 INR 1.01 (0.87-1.13) 09/15/16 05:00 Abnormal lab findings: Abnormal Labs 09/03/16 09/03/16 09/03/16 12:12 15:07 16:20 WBC RBC Hgb Hct MCV MCH MCHC RDW Plt Count Lymph % (Auto) [place] % (Auto) Lymph # [place] # Seg Neutrophils % Seg Neuts % (Manual) Lymphocytes % (Manual) Monocytes % (Manual) Eosinophils % (Manual) Basophils % (Manual) Nucleated RBC % Seg Neutrophils # Seg Neutrophils # Man Lymphocytes # (Manual) Monocytes # (Manual) Eosinophils # (Manual) Fibrinogen dRVVT Confirm Interp Factor V Activity POC ABG pH 7.452 H POC ABG pCO2 POC ABG pO2 Sodium Potassium Chloride Carbon Dioxide BUN Creatinine Glucose POC Glucose 178 H Lactic Acid Calcium Phosphorus 2.20 L Magnesium 1.60 L Direct Bilirubin Troponin T C-Reactive Protein Total Protein Albumin Triglycerides Cholesterol LDL Cholesterol Direct HDL Cholesterol Urine WBC (Auto) Urine Creatinine Urine Total Protein Vancomycin Trough Rheumatoid Factor Complement C4 Crossmatch 09/03/16 09/03/16 09/03/16 17:57 17:58 23:50 WBC RBC Hgb Hct MCV MCH MCHC RDW Plt Count Lymph % (Auto) [place] % (Auto) Lymph # [place] # Seg Neutrophils % Seg Neuts % (Manual) Lymphocytes % (Manual) Monocytes % (Manual) Eosinophils % (Manual) Basophils % (Manual) Nucleated RBC % Seg Neutrophils # Seg Neutrophils # Man Lymphocytes # (Manual) Monocytes # (Manual) Eosinophils # (Manual) Fibrinogen dRVVT Confirm Interp Factor V Activity POC ABG pH POC ABG pCO2 POC ABG pO2 Sodium Potassium Chloride Carbon Dioxide BUN Creatinine Glucose POC Glucose 162 H 145 H Lactic Acid Calcium Phosphorus 2.30 L Magnesium Direct Bilirubin Troponin T C-Reactive Protein Total Protein Albumin Triglycerides Cholesterol LDL Cholesterol Direct HDL Cholesterol Urine WBC (Auto) Urine Creatinine Urine Total Protein Vancomycin Trough Rheumatoid Factor Complement C4 Crossmatch 09/04/16 09/04/16 09/04/16 03:31 03:31 05:42 WBC RBC Hgb 9.7 L D Hct MCV 72 L MCH 23 L MCHC RDW 17.5 H Plt Count Lymph % (Auto) 11.1 L [place] % (Auto) Lymph # [place] # Seg Neutrophils % 84.3 H Seg Neuts % (Manual) Lymphocytes % (Manual) Monocytes % (Manual) Eosinophils % (Manual) Basophils % (Manual) Nucleated RBC % Seg Neutrophils # 8.9 H Seg Neutrophils # Man Lymphocytes # (Manual) Monocytes # (Manual) Eosinophils # (Manual) Fibrinogen dRVVT Confirm Interp Factor V Activity POC ABG pH POC ABG pCO2 POC ABG pO2 Sodium 135 L Potassium 2.9 L* Chloride 97.2 L Carbon Dioxide 19 L BUN Creatinine 1.7 H Glucose 170 H POC Glucose 152 H Lactic Acid Calcium Phosphorus Magnesium Direct Bilirubin Troponin T C-Reactive Protein Total Protein Albumin Triglycerides 160 H Cholesterol LDL Cholesterol Direct HDL Cholesterol 31 L Urine WBC (Auto) Urine Creatinine Urine Total Protein Vancomycin Trough Rheumatoid Factor Complement C4 Crossmatch 09/04/16 09/04/16 09/04/16 11:34 17:46 23:29 WBC RBC Hgb Hct MCV MCH MCHC RDW Plt Count Lymph % (Auto) [place] % (Auto) Lymph # [place] # Seg Neutrophils % Seg Neuts % (Manual) Lymphocytes % (Manual) Monocytes % (Manual) Eosinophils % (Manual) Basophils % (Manual) Nucleated RBC % Seg Neutrophils # Seg Neutrophils # Man Lymphocytes # (Manual) Monocytes # (Manual) Eosinophils # (Manual) Fibrinogen dRVVT Confirm Interp Factor V Activity POC ABG pH POC ABG pCO2 POC ABG pO2 Sodium Potassium Chloride Carbon Dioxide BUN Creatinine Glucose POC Glucose 165 H 210 H 139 H Lactic Acid Calcium Phosphorus Magnesium Direct Bilirubin Troponin T C-Reactive Protein Total Protein Albumin Triglycerides Cholesterol LDL Cholesterol Direct HDL Cholesterol Urine WBC (Auto) Urine Creatinine Urine Total Protein Vancomycin Trough Rheumatoid Factor Complement C4 Crossmatch 09/05/16 09/05/16 09/05/16 04:05 04:05 05:38 WBC RBC Hgb Hct MCV 76 L D MCH 23 L MCHC RDW 17.8 H Plt Count Lymph % (Auto) [place] % (Auto) Lymph # [place] # Seg Neutrophils % Seg Neuts % (Manual) Lymphocytes % (Manual) Monocytes % (Manual) Eosinophils % (Manual) Basophils % (Manual) Nucleated RBC % Seg Neutrophils # Seg Neutrophils # Man Lymphocytes # (Manual) Monocytes # (Manual) Eosinophils # (Manual) Fibrinogen dRVVT Confirm Interp Factor V Activity POC ABG pH POC ABG pCO2 POC ABG pO2 Sodium 134 L Potassium Chloride Carbon Dioxide 18 L BUN Creatinine 1.8 H Glucose 192 H POC Glucose 175 H Lactic Acid Calcium Phosphorus Magnesium Direct Bilirubin Troponin T C-Reactive Protein Total Protein Albumin Triglycerides Cholesterol LDL Cholesterol Direct HDL Cholesterol Urine WBC (Auto) Urine Creatinine Urine Total Protein Vancomycin Trough Rheumatoid Factor Complement C4 Crossmatch 09/05/16 09/05/16 09/05/16 11:38 17:48 23:22 WBC RBC Hgb Hct MCV MCH MCHC RDW Plt Count Lymph % (Auto) [place] % (Auto) Lymph # [place] # Seg Neutrophils % Seg Neuts % (Manual) Lymphocytes % (Manual) Monocytes % (Manual) Eosinophils % (Manual) Basophils % (Manual) Nucleated RBC % Seg Neutrophils # Seg Neutrophils # Man Lymphocytes # (Manual) Monocytes # (Manual) Eosinophils # (Manual) Fibrinogen dRVVT Confirm Interp Factor V Activity POC ABG pH POC ABG pCO2 POC ABG pO2 Sodium Potassium Chloride Carbon Dioxide BUN Creatinine Glucose POC Glucose 164 H 186 H 195 H Lactic Acid Calcium Phosphorus Magnesium Direct Bilirubin Troponin T C-Reactive Protein Total Protein Albumin Triglycerides Cholesterol LDL Cholesterol Direct HDL Cholesterol Urine WBC (Auto) Urine Creatinine Urine Total Protein Vancomycin Trough Rheumatoid Factor Complement C4 Crossmatch 09/06/16 09/06/16 09/06/16 04:12 05:59 07:32 WBC RBC Hgb Hct MCV MCH MCHC RDW Plt Count Lymph % (Auto) [place] % (Auto) Lymph # [place] # Seg Neutrophils % Seg Neuts % (Manual) Lymphocytes % (Manual) Monocytes % (Manual) Eosinophils % (Manual) Basophils % (Manual) Nucleated RBC % Seg Neutrophils # Seg Neutrophils # Man Lymphocytes # (Manual) Monocytes # (Manual) Eosinophils # (Manual) Fibrinogen dRVVT Confirm Interp Factor V Activity POC ABG pH 7.514 H POC ABG pCO2 29.1 L POC ABG pO2 72 L Sodium 133 L Potassium 3.4 L Chloride 94.9 L Carbon Dioxide 19 L BUN 30 H Creatinine 2.1 H Glucose 139 H POC Glucose 146 H Lactic Acid Calcium Phosphorus Magnesium Direct Bilirubin Troponin T C-Reactive Protein Total Protein Albumin Triglycerides Cholesterol LDL Cholesterol Direct HDL Cholesterol Urine WBC (Auto) Urine Creatinine Urine Total Protein Vancomycin Trough Rheumatoid Factor Complement C4 Crossmatch 09/06/16 09/06/16 09/06/16 11:57 17:58 19:02 WBC RBC Hgb Hct MCV MCH MCHC RDW Plt Count Lymph % (Auto) [place] % (Auto) Lymph # [place] # Seg Neutrophils % Seg Neuts % (Manual) Lymphocytes % (Manual) Monocytes % (Manual) Eosinophils % (Manual) Basophils % (Manual) Nucleated RBC % Seg Neutrophils # Seg Neutrophils # Man Lymphocytes # (Manual) Monocytes # (Manual) Eosinophils # (Manual) Fibrinogen dRVVT Confirm Interp Factor V Activity POC ABG pH 7.465 H POC ABG pCO2 32.0 L POC ABG pO2 Sodium Potassium Chloride Carbon Dioxide BUN Creatinine Glucose POC Glucose 165 H 160 H Lactic Acid Calcium Phosphorus Magnesium Direct Bilirubin Troponin T C-Reactive Protein Total Protein Albumin Triglycerides Cholesterol LDL Cholesterol Direct HDL Cholesterol Urine WBC (Auto) Urine Creatinine Urine Total Protein Vancomycin Trough Rheumatoid Factor Complement C4 Crossmatch 09/06/16 09/07/16 09/07/16 23:45 02:47 02:47 WBC RBC Hgb Hct MCV MCH MCHC RDW Plt Count Lymph % (Auto) [place] % (Auto) Lymph # [place] # Seg Neutrophils % Seg Neuts % (Manual) Lymphocytes % (Manual) Monocytes % (Manual) Eosinophils % (Manual) Basophils % (Manual) Nucleated RBC % Seg Neutrophils # Seg Neutrophils # Man Lymphocytes # (Manual) Monocytes # (Manual) Eosinophils # (Manual) Fibrinogen dRVVT Confirm Interp Factor V Activity POC ABG pH POC ABG pCO2 POC ABG pO2 Sodium Potassium Chloride Carbon Dioxide BUN Creatinine Glucose POC Glucose 204 H Lactic Acid Calcium Phosphorus Magnesium Direct Bilirubin Troponin T C-Reactive Protein Total Protein Albumin Triglycerides Cholesterol LDL Cholesterol Direct HDL Cholesterol Urine WBC (Auto) 68.0 H Urine Creatinine 106.1 H Urine Total Protein Vancomycin Trough Rheumatoid Factor Complement C4 Crossmatch 09/07/16 09/07/16 09/07/16 04:50 06:19 06:39 WBC RBC Hgb Hct MCV MCH MCHC RDW Plt Count Lymph % (Auto) [place] % (Auto) Lymph # [place] # Seg Neutrophils % Seg Neuts % (Manual) Lymphocytes % (Manual) Monocytes % (Manual) Eosinophils % (Manual) Basophils % (Manual) Nucleated RBC % Seg Neutrophils # Seg Neutrophils # Man Lymphocytes # (Manual) Monocytes # (Manual) Eosinophils # (Manual) Fibrinogen dRVVT Confirm Interp Factor V Activity POC ABG pH 7.457 H POC ABG pCO2 32.1 L POC ABG pO2 76 L Sodium 132 L Potassium Chloride 94.7 L Carbon Dioxide BUN 53 H Creatinine 2.9 H Glucose 151 H POC Glucose 149 H Lactic Acid Calcium Phosphorus Magnesium Direct Bilirubin Troponin T C-Reactive Protein Total Protein Albumin Triglycerides Cholesterol LDL Cholesterol Direct HDL Cholesterol Urine WBC (Auto) Urine Creatinine Urine Total Protein Vancomycin Trough Rheumatoid Factor Complement C4 Crossmatch 09/07/16 09/07/16 09/07/16 09:20 11:43 11:43 WBC 19.4 H RBC Hgb 8.3 L Hct 26.4 L D MCV 72 L D MCH 22 L MCHC RDW 17.9 H Plt Count Lymph % (Auto) 8.5 L [place] % (Auto) Lymph # [place] # 1.0 H Seg Neutrophils % 85.8 H Seg Neuts % (Manual) Lymphocytes % (Manual) Monocytes % (Manual) Eosinophils % (Manual) Basophils % (Manual) Nucleated RBC % Seg Neutrophils # 16.6 H Seg Neutrophils # Man Lymphocytes # (Manual) Monocytes # (Manual) Eosinophils # (Manual) Fibrinogen dRVVT Confirm Interp Factor V Activity POC ABG pH POC ABG pCO2 POC ABG pO2 Sodium 134 L Potassium Chloride 97.2 L Carbon Dioxide 20 L BUN 58 H Creatinine 2.9 H Glucose 147 H POC Glucose Lactic Acid Calcium Phosphorus 2.40 L Magnesium 2.40 H Direct Bilirubin Troponin T C-Reactive Protein Total Protein 5.8 L Albumin 2.2 L Triglycerides Cholesterol LDL Cholesterol Direct HDL Cholesterol Urine WBC (Auto) Urine Creatinine Urine Total Protein Vancomycin Trough Rheumatoid Factor Complement C4 58 H Crossmatch 09/07/16 09/07/16 09/07/16 11:50 16:00 17:31 WBC RBC Hgb Hct MCV MCH MCHC RDW Plt Count Lymph % (Auto) [place] % (Auto) Lymph # [place] # Seg Neutrophils % Seg Neuts % (Manual) Lymphocytes % (Manual) Monocytes % (Manual) Eosinophils % (Manual) Basophils % (Manual) Nucleated RBC % Seg Neutrophils # Seg Neutrophils # Man Lymphocytes # (Manual) Monocytes # (Manual) Eosinophils # (Manual) Fibrinogen dRVVT Confirm Interp Factor V Activity POC ABG pH POC ABG pCO2 POC ABG pO2 158 H Sodium Potassium Chloride Carbon Dioxide BUN Creatinine Glucose POC Glucose 175 H Lactic Acid Calcium Phosphorus Magnesium Direct Bilirubin Troponin T C-Reactive Protein Total Protein Albumin Triglycerides Cholesterol LDL Cholesterol Direct HDL Cholesterol Urine WBC (Auto) Urine Creatinine 66.3 H Urine Total Protein Vancomycin Trough Rheumatoid Factor Complement C4 Crossmatch 09/07/16 09/08/16 09/08/16 23:50 05:46 06:18 WBC 17.8 H RBC 3.58 L Hgb 8.1 L Hct 25.5 L MCV 71 L MCH 23 L MCHC RDW 18.4 H Plt Count Lymph % (Auto) [place] % (Auto) Lymph # [place] # Seg Neutrophils % Seg Neuts % (Manual) 92.0 H Lymphocytes % (Manual) 6.0 L Monocytes % (Manual) Eosinophils % (Manual) Basophils % (Manual) Nucleated RBC % Seg Neutrophils # Seg Neutrophils # Man 16.4 H Lymphocytes # (Manual) 1.1 L Monocytes # (Manual) Eosinophils # (Manual) Fibrinogen dRVVT Confirm Interp Factor V Activity POC ABG pH POC ABG pCO2 34.3 L POC ABG pO2 71 L Sodium Potassium Chloride Carbon Dioxide BUN Creatinine Glucose POC Glucose 216 H Lactic Acid Calcium Phosphorus Magnesium Direct Bilirubin Troponin T C-Reactive Protein Total Protein Albumin Triglycerides Cholesterol LDL Cholesterol Direct HDL Cholesterol Urine WBC (Auto) Urine Creatinine Urine Total Protein Vancomycin Trough Rheumatoid Factor Complement C4 Crossmatch 09/08/16 09/08/16 09/08/16 06:18 06:51 10:55 WBC RBC Hgb Hct MCV MCH MCHC RDW Plt Count Lymph % (Auto) [place] % (Auto) Lymph # [place] # Seg Neutrophils % Seg Neuts % (Manual) Lymphocytes % (Manual) Monocytes % (Manual) Eosinophils % (Manual) Basophils % (Manual) Nucleated RBC % Seg Neutrophils # Seg Neutrophils # Man Lymphocytes # (Manual) Monocytes # (Manual) Eosinophils # (Manual) Fibrinogen dRVVT Confirm Interp Factor V Activity POC ABG pH POC ABG pCO2 POC ABG pO2 Sodium 133 L Potassium Chloride 96.9 L Carbon Dioxide 20 L BUN 63 H Creatinine 2.7 H Glucose 195 H POC Glucose 204 H 169 H Lactic Acid Calcium Phosphorus Magnesium Direct Bilirubin Troponin T C-Reactive Protein Total Protein Albumin Triglycerides Cholesterol LDL Cholesterol Direct HDL Cholesterol Urine WBC (Auto) Urine Creatinine Urine Total Protein Vancomycin Trough Rheumatoid Factor Complement C4 Crossmatch 09/08/16 09/08/16 09/08/16 11:48 11:48 11:48 WBC RBC Hgb Hct MCV MCH MCHC RDW Plt Count Lymph % (Auto) [place] % (Auto) Lymph # [place] # Seg Neutrophils % Seg Neuts % (Manual) Lymphocytes % (Manual) Monocytes % (Manual) Eosinophils % (Manual) Basophils % (Manual) Nucleated RBC % Seg Neutrophils # Seg Neutrophils # Man Lymphocytes # (Manual) Monocytes # (Manual) Eosinophils # (Manual) Fibrinogen 750 H dRVVT Confirm Interp Factor V Activity POC ABG pH POC ABG pCO2 POC ABG pO2 Sodium Potassium Chloride Carbon Dioxide BUN Creatinine Glucose POC Glucose Lactic Acid Calcium Phosphorus Magnesium Direct Bilirubin Troponin T C-Reactive Protein 15.70 H Total Protein Albumin Triglycerides Cholesterol LDL Cholesterol Direct HDL Cholesterol Urine WBC (Auto) Urine Creatinine Urine Total Protein Vancomycin Trough Rheumatoid Factor 24 H Complement C4 Crossmatch 09/08/16 09/08/16 09/09/16 15:35 18:25 00:24 WBC RBC Hgb Hct MCV MCH MCHC RDW Plt Count Lymph % (Auto) [place] % (Auto) Lymph # [place] # Seg Neutrophils % Seg Neuts % (Manual) Lymphocytes % (Manual) Monocytes % (Manual) Eosinophils % (Manual) Basophils % (Manual) Nucleated RBC % Seg Neutrophils # Seg Neutrophils # Man Lymphocytes # (Manual) Monocytes # (Manual) Eosinophils # (Manual) Fibrinogen dRVVT Confirm Interp Factor V Activity 182 H POC ABG pH POC ABG pCO2 POC ABG pO2 Sodium Potassium Chloride Carbon Dioxide BUN Creatinine Glucose POC Glucose 184 H 216 H Lactic Acid Calcium Phosphorus Magnesium Direct Bilirubin Troponin T C-Reactive Protein Total Protein Albumin Triglycerides Cholesterol LDL Cholesterol Direct HDL Cholesterol Urine WBC (Auto) Urine Creatinine Urine Total Protein Vancomycin Trough Rheumatoid Factor Complement C4 Crossmatch 09/09/16 09/09/16 09/09/16 03:00 03:00 04:04 WBC 27.9 H RBC Hgb 8.7 L Hct 28.1 L MCV 72 L MCH 22 L MCHC RDW 18.4 H Plt Count 485 H Lymph % (Auto) [place] % (Auto) Lymph # [place] # Seg Neutrophils % Seg Neuts % (Manual) 77.0 H Lymphocytes % (Manual) 9.0 L Monocytes % (Manual) Eosinophils % (Manual) Basophils % (Manual) Nucleated RBC % Seg Neutrophils # Seg Neutrophils # Man 21.5 H Lymphocytes # (Manual) Monocytes # (Manual) 2.0 H Eosinophils # (Manual) Fibrinogen dRVVT Confirm Interp Factor V Activity POC ABG pH POC ABG pCO2 POC ABG pO2 121 H Sodium 135 L Potassium Chloride 96.3 L Carbon Dioxide 21 L BUN 83 H Creatinine 3.0 H Glucose 135 H POC Glucose Lactic Acid Calcium Phosphorus Magnesium Direct Bilirubin Troponin T C-Reactive Protein Total Protein Albumin Triglycerides Cholesterol LDL Cholesterol Direct HDL Cholesterol Urine WBC (Auto) Urine Creatinine Urine Total Protein Vancomycin Trough Rheumatoid Factor Complement C4 Crossmatch 09/09/16 09/09/16 09/09/16 05:41 11:55 14:13 WBC RBC Hgb Hct MCV MCH MCHC RDW Plt Count Lymph % (Auto) [place] % (Auto) Lymph # [place] # Seg Neutrophils % Seg Neuts % (Manual) Lymphocytes % (Manual) Monocytes % (Manual) Eosinophils % (Manual) Basophils % (Manual) Nucleated RBC % Seg Neutrophils # Seg Neutrophils # Man Lymphocytes # (Manual) Monocytes # (Manual) Eosinophils # (Manual) Fibrinogen dRVVT Confirm Interp Factor V Activity POC ABG pH POC ABG pCO2 POC ABG pO2 Sodium Potassium Chloride Carbon Dioxide BUN Creatinine Glucose POC Glucose 155 H 186 H Lactic Acid Calcium Phosphorus Magnesium Direct Bilirubin Troponin T C-Reactive Protein Total Protein Albumin Triglycerides Cholesterol LDL Cholesterol Direct HDL Cholesterol Urine WBC (Auto) 25.0 H Urine Creatinine Urine Total Protein Vancomycin Trough Rheumatoid Factor Complement C4 Crossmatch 09/09/16 09/09/16 09/10/16 17:33 23:13 05:09 WBC RBC Hgb Hct MCV MCH MCHC RDW Plt Count Lymph % (Auto) [place] % (Auto) Lymph # [place] # Seg Neutrophils % Seg Neuts % (Manual) Lymphocytes % (Manual) Monocytes % (Manual) Eosinophils % (Manual) Basophils % (Manual) Nucleated RBC % Seg Neutrophils # Seg Neutrophils # Man Lymphocytes # (Manual) Monocytes # (Manual) Eosinophils # (Manual) Fibrinogen dRVVT Confirm Interp Factor V Activity POC ABG pH POC ABG pCO2 POC ABG pO2 74 L Sodium Potassium Chloride Carbon Dioxide BUN Creatinine Glucose POC Glucose 211 H 215 H Lactic Acid Calcium Phosphorus Magnesium Direct Bilirubin Troponin T C-Reactive Protein Total Protein Albumin Triglycerides Cholesterol LDL Cholesterol Direct HDL Cholesterol Urine WBC (Auto) Urine Creatinine Urine Total Protein Vancomycin Trough Rheumatoid Factor Complement C4 Crossmatch 09/10/16 09/10/16 09/10/16 05:17 05:17 11:31 WBC 15.8 H RBC 3.25 L Hgb 7.3 L Hct 22.9 L MCV 71 L MCH 23 L MCHC RDW 18.4 H Plt Count Lymph % (Auto) [place] % (Auto) Lymph # [place] # Seg Neutrophils % Seg Neuts % (Manual) 91.0 H Lymphocytes % (Manual) 4.0 L Monocytes % (Manual) Eosinophils % (Manual) Basophils % (Manual) Nucleated RBC % Seg Neutrophils # Seg Neutrophils # Man 14.4 H Lymphocytes # (Manual) 0.6 L Monocytes # (Manual) Eosinophils # (Manual) Fibrinogen dRVVT Confirm Interp Factor V Activity POC ABG pH POC ABG pCO2 POC ABG pO2 Sodium Potassium Chloride Carbon Dioxide 21 L BUN 93 H Creatinine 2.9 H Glucose 146 H POC Glucose 188 H Lactic Acid Calcium 8.1 L Phosphorus Magnesium Direct Bilirubin Troponin T C-Reactive Protein Total Protein Albumin Triglycerides Cholesterol LDL Cholesterol Direct HDL Cholesterol Urine WBC (Auto) Urine Creatinine Urine Total Protein Vancomycin Trough Rheumatoid Factor Complement C4 Crossmatch 09/10/16 09/10/16 09/10/16 13:17 17:20 23:32 WBC RBC Hgb Hct MCV MCH MCHC RDW Plt Count Lymph % (Auto) [place] % (Auto) Lymph # [place] # Seg Neutrophils % Seg Neuts % (Manual) Lymphocytes % (Manual) Monocytes % (Manual) Eosinophils % (Manual) Basophils % (Manual) Nucleated RBC % Seg Neutrophils # Seg Neutrophils # Man Lymphocytes # (Manual) Monocytes # (Manual) Eosinophils # (Manual) Fibrinogen dRVVT Confirm Interp Factor V Activity POC ABG pH POC ABG pCO2 POC ABG pO2 Sodium Potassium Chloride Carbon Dioxide BUN Creatinine Glucose POC Glucose 199 H 186 H Lactic Acid Calcium Phosphorus Magnesium Direct Bilirubin Troponin T C-Reactive Protein Total Protein Albumin Triglycerides Cholesterol LDL Cholesterol Direct HDL Cholesterol Urine WBC (Auto) Urine Creatinine Urine Total Protein Vancomycin Trough Rheumatoid Factor Complement C4 Crossmatch See Detail 09/11/16 09/11/16 09/11/16 05:10 05:10 05:17 WBC 28.4 H RBC Hgb 9.2 L Hct 29.3 L D MCV 73 L MCH 23 L MCHC RDW 18.9 H Plt Count 452 H Lymph % (Auto) [place] % (Auto) Lymph # [place] # Seg Neutrophils % Seg Neuts % (Manual) 89.5 H Lymphocytes % (Manual) 2.0 L Monocytes % (Manual) Eosinophils % (Manual) Basophils % (Manual) Nucleated RBC % Seg Neutrophils # Seg Neutrophils # Man 25.4 H Lymphocytes # (Manual) 0.6 L Monocytes # (Manual) 1.3 H Eosinophils # (Manual) Fibrinogen dRVVT Confirm Interp Factor V Activity POC ABG pH POC ABG pCO2 POC ABG pO2 Sodium 136 L Potassium Chloride Carbon Dioxide 18 L BUN 107 H Creatinine 2.6 H Glucose 187 H POC Glucose 230 H Lactic Acid Calcium 8.3 L Phosphorus Magnesium Direct Bilirubin Troponin T C-Reactive Protein Total Protein Albumin Triglycerides Cholesterol LDL Cholesterol Direct HDL Cholesterol Urine WBC (Auto) Urine Creatinine Urine Total Protein Vancomycin Trough Rheumatoid Factor Complement C4 Crossmatch 09/11/16 09/11/16 09/11/16 05:55 12:02 17:32 WBC RBC Hgb Hct MCV MCH MCHC RDW Plt Count Lymph % (Auto) [place] % (Auto) Lymph # [place] # Seg Neutrophils % Seg Neuts % (Manual) Lymphocytes % (Manual) Monocytes % (Manual) Eosinophils % (Manual) Basophils % (Manual) Nucleated RBC % Seg Neutrophils # Seg Neutrophils # Man Lymphocytes # (Manual) Monocytes # (Manual) Eosinophils # (Manual) Fibrinogen dRVVT Confirm Interp Factor V Activity POC ABG pH POC ABG pCO2 33.8 L POC ABG pO2 Sodium Potassium Chloride Carbon Dioxide BUN Creatinine Glucose POC Glucose 191 H 239 H Lactic Acid Calcium Phosphorus Magnesium Direct Bilirubin Troponin T C-Reactive Protein Total Protein Albumin Triglycerides Cholesterol LDL Cholesterol Direct HDL Cholesterol Urine WBC (Auto) Urine Creatinine Urine Total Protein Vancomycin Trough Rheumatoid Factor Complement C4 Crossmatch 09/11/16 09/12/16 09/12/16 23:52 05:09 05:32 WBC RBC Hgb Hct MCV MCH MCHC RDW Plt Count Lymph % (Auto) [place] % (Auto) Lymph # [place] # Seg Neutrophils % Seg Neuts % (Manual) Lymphocytes % (Manual) Monocytes % (Manual) Eosinophils % (Manual) Basophils % (Manual) Nucleated RBC % Seg Neutrophils # Seg Neutrophils # Man Lymphocytes # (Manual) Monocytes # (Manual) Eosinophils # (Manual) Fibrinogen dRVVT Confirm Interp Factor V Activity POC ABG pH POC ABG pCO2 34.6 L POC ABG pO2 Sodium Potassium Chloride Carbon Dioxide BUN Creatinine Glucose POC Glucose 265 H 184 H Lactic Acid Calcium Phosphorus Magnesium Direct Bilirubin Troponin T C-Reactive Protein Total Protein Albumin Triglycerides Cholesterol LDL Cholesterol Direct HDL Cholesterol Urine WBC (Auto) Urine Creatinine Urine Total Protein Vancomycin Trough Rheumatoid Factor Complement C4 Crossmatch 09/12/16 09/12/16 09/12/16 06:45 06:45 07:22 WBC 31.7 H RBC 3.54 L Hgb 8.3 L Hct 25.9 L MCV 73 L MCH 23 L MCHC RDW 18.9 H Plt Count Lymph % (Auto) [place] % (Auto) Lymph # [place] # Seg Neutrophils % Seg Neuts % (Manual) 88.5 H Lymphocytes % (Manual) 4.5 L Monocytes % (Manual) Eosinophils % (Manual) Basophils % (Manual) Nucleated RBC % Seg Neutrophils # Seg Neutrophils # Man 28.1 H Lymphocytes # (Manual) Monocytes # (Manual) 1.0 H Eosinophils # (Manual) Fibrinogen dRVVT Confirm Interp Factor V Activity POC ABG pH POC ABG pCO2 POC ABG pO2 Sodium Potassium Chloride Carbon Dioxide 20 L BUN 115 H Creatinine 2.7 H Glucose 165 H POC Glucose Lactic Acid Calcium 8.0 L Phosphorus Magnesium Direct Bilirubin Troponin T C-Reactive Protein Total Protein Albumin Triglycerides 217 H Cholesterol LDL Cholesterol Direct HDL Cholesterol Urine WBC (Auto) Urine Creatinine Urine Total Protein Vancomycin Trough Rheumatoid Factor Complement C4 Crossmatch 09/12/16 09/12/16 09/12/16 07:22 09:59 12:21 WBC RBC Hgb Hct MCV MCH MCHC RDW Plt Count Lymph % (Auto) [place] % (Auto) Lymph # [place] # Seg Neutrophils % Seg Neuts % (Manual) Lymphocytes % (Manual) Monocytes % (Manual) Eosinophils % (Manual) Basophils % (Manual) Nucleated RBC % Seg Neutrophils # Seg Neutrophils # Man Lymphocytes # (Manual) Monocytes # (Manual) Eosinophils # (Manual) Fibrinogen dRVVT Confirm Interp Positive H Factor V Activity POC ABG pH POC ABG pCO2 POC ABG pO2 Sodium Potassium Chloride Carbon Dioxide BUN Creatinine Glucose POC Glucose 224 H Lactic Acid Calcium Phosphorus Magnesium Direct Bilirubin Troponin T C-Reactive Protein 1.70 H Total Protein Albumin Triglycerides Cholesterol LDL Cholesterol Direct HDL Cholesterol Urine WBC (Auto) Urine Creatinine Urine Total Protein Vancomycin Trough Rheumatoid Factor Complement C4 Crossmatch 09/12/16 09/12/16 09/13/16 16:51 23:28 04:00 WBC 45.0 H* RBC Hgb 9.4 L Hct MCV 75 L MCH 23 L MCHC RDW 19.0 H Plt Count 470 H Lymph % (Auto) [place] % (Auto) Lymph # [place] # Seg Neutrophils % Seg Neuts % (Manual) 89.0 H Lymphocytes % (Manual) 5.0 L Monocytes % (Manual) Eosinophils % (Manual) Basophils % (Manual) Nucleated RBC % Seg Neutrophils # Seg Neutrophils # Man 40.1 H Lymphocytes # (Manual) Monocytes # (Manual) Eosinophils # (Manual) Fibrinogen dRVVT Confirm Interp Factor V Activity POC ABG pH POC ABG pCO2 POC ABG pO2 Sodium Potassium Chloride Carbon Dioxide BUN Creatinine Glucose POC Glucose 169 H 150 H Lactic Acid Calcium Phosphorus Magnesium Direct Bilirubin Troponin T C-Reactive Protein Total Protein Albumin Triglycerides Cholesterol LDL Cholesterol Direct HDL Cholesterol Urine WBC (Auto) Urine Creatinine Urine Total Protein Vancomycin Trough Rheumatoid Factor Complement C4 Crossmatch 09/13/16 09/13/16 09/13/16 04:00 11:26 17:31 WBC RBC Hgb Hct MCV MCH MCHC RDW Plt Count Lymph % (Auto) [place] % (Auto) Lymph # [place] # Seg Neutrophils % Seg Neuts % (Manual) Lymphocytes % (Manual) Monocytes % (Manual) Eosinophils % (Manual) Basophils % (Manual) Nucleated RBC % Seg Neutrophils # Seg Neutrophils # Man Lymphocytes # (Manual) Monocytes # (Manual) Eosinophils # (Manual) Fibrinogen dRVVT Confirm Interp Factor V Activity POC ABG pH POC ABG pCO2 POC ABG pO2 Sodium Potassium Chloride Carbon Dioxide 20 L BUN 116 H Creatinine 3.0 H Glucose 172 H POC Glucose 140 H 183 H Lactic Acid Calcium Phosphorus Magnesium Direct Bilirubin Troponin T C-Reactive Protein Total Protein 6.2 L Albumin 2.9 L Triglycerides Cholesterol LDL Cholesterol Direct HDL Cholesterol Urine WBC (Auto) Urine Creatinine Urine Total Protein Vancomycin Trough Rheumatoid Factor Complement C4 Crossmatch 09/13/16 09/14/16 09/14/16 23:23 04:06 04:07 WBC 29.4 H RBC Hgb 8.9 L Hct 27.3 L MCV 75 L MCH 24 L MCHC RDW 19.1 H Plt Count Lymph % (Auto) [place] % (Auto) Lymph # [place] # Seg Neutrophils % Seg Neuts % (Manual) 84.0 H Lymphocytes % (Manual) 6.0 L Monocytes % (Manual) 9.0 H Eosinophils % (Manual) Basophils % (Manual) Nucleated RBC % Seg Neutrophils # Seg Neutrophils # Man 24.7 H Lymphocytes # (Manual) Monocytes # (Manual) 2.6 H Eosinophils # (Manual) Fibrinogen dRVVT Confirm Interp Factor V Activity POC ABG pH 7.342 L POC ABG pCO2 POC ABG pO2 116 H Sodium Potassium Chloride Carbon Dioxide BUN Creatinine Glucose POC Glucose 154 H Lactic Acid Calcium Phosphorus Magnesium Direct Bilirubin Troponin T C-Reactive Protein Total Protein Albumin Triglycerides Cholesterol LDL Cholesterol Direct HDL Cholesterol Urine WBC (Auto) Urine Creatinine Urine Total Protein Vancomycin Trough Rheumatoid Factor Complement C4 Crossmatch 09/14/16 09/14/16 09/14/16 04:07 05:29 12:19 WBC RBC Hgb Hct MCV MCH MCHC RDW Plt Count Lymph % (Auto) [place] % (Auto) Lymph # [place] # Seg Neutrophils % Seg Neuts % (Manual) Lymphocytes % (Manual) Monocytes % (Manual) Eosinophils % (Manual) Basophils % (Manual) Nucleated RBC % Seg Neutrophils # Seg Neutrophils # Man Lymphocytes # (Manual) Monocytes # (Manual) Eosinophils # (Manual) Fibrinogen dRVVT Confirm Interp Factor V Activity POC ABG pH POC ABG pCO2 POC ABG pO2 Sodium 136 L Potassium Chloride Carbon Dioxide 18 L BUN 121 H Creatinine 2.8 H Glucose 214 H POC Glucose 239 H 181 H Lactic Acid Calcium Phosphorus Magnesium Direct Bilirubin Troponin T C-Reactive Protein Total Protein Albumin Triglycerides Cholesterol LDL Cholesterol Direct HDL Cholesterol Urine WBC (Auto) Urine Creatinine Urine Total Protein Vancomycin Trough Rheumatoid Factor Complement C4 Crossmatch 09/14/16 09/14/16 09/15/16 18:12 23:37 05:00 WBC 26.1 H RBC 3.05 L Hgb 7.2 L Hct 22.9 L MCV 75 L MCH 24 L MCHC RDW 19.0 H Plt Count Lymph % (Auto) [place] % (Auto) Lymph # [place] # Seg Neutrophils % Seg Neuts % (Manual) Lymphocytes % (Manual) Monocytes % (Manual) Eosinophils % (Manual) Basophils % (Manual) Nucleated RBC % Seg Neutrophils # Seg Neutrophils # Man Lymphocytes # (Manual) Monocytes # (Manual) Eosinophils # (Manual) Fibrinogen dRVVT Confirm Interp Factor V Activity POC ABG pH POC ABG pCO2 POC ABG pO2 Sodium Potassium Chloride Carbon Dioxide BUN Creatinine Glucose POC Glucose 266 H 154 H Lactic Acid Calcium Phosphorus Magnesium Direct Bilirubin Troponin T C-Reactive Protein Total Protein Albumin Triglycerides Cholesterol LDL Cholesterol Direct HDL Cholesterol Urine WBC (Auto) Urine Creatinine Urine Total Protein Vancomycin Trough Rheumatoid Factor Complement C4 Crossmatch 09/15/16 09/15/16 09/15/16 05:00 05:17 12:45 WBC RBC Hgb Hct MCV MCH MCHC RDW Plt Count Lymph % (Auto) [place] % (Auto) Lymph # [place] # Seg Neutrophils % Seg Neuts % (Manual) Lymphocytes % (Manual) Monocytes % (Manual) Eosinophils % (Manual) Basophils % (Manual) Nucleated RBC % Seg Neutrophils # Seg Neutrophils # Man Lymphocytes # (Manual) Monocytes # (Manual) Eosinophils # (Manual) Fibrinogen dRVVT Confirm Interp Factor V Activity POC ABG pH POC ABG pCO2 POC ABG pO2 Sodium Potassium 5.2 H Chloride Carbon Dioxide 18 L BUN 139 H Creatinine 3.7 H Glucose 227 H POC Glucose 226 H 244 H Lactic Acid Calcium 8.3 L Phosphorus Magnesium Direct Bilirubin Troponin T C-Reactive Protein Total Protein Albumin Triglycerides Cholesterol LDL Cholesterol Direct HDL Cholesterol Urine WBC (Auto) Urine Creatinine Urine Total Protein Vancomycin Trough Rheumatoid Factor Complement C4 Crossmatch 09/15/16 09/15/16 09/15/16 14:32 17:33 23:35 WBC RBC Hgb Hct MCV MCH MCHC RDW Plt Count Lymph % (Auto) [place] % (Auto) Lymph # [place] # Seg Neutrophils % Seg Neuts % (Manual) Lymphocytes % (Manual) Monocytes % (Manual) Eosinophils % (Manual) Basophils % (Manual) Nucleated RBC % Seg Neutrophils # Seg Neutrophils # Man Lymphocytes # (Manual) Monocytes # (Manual) Eosinophils # (Manual) Fibrinogen dRVVT Confirm Interp Factor V Activity POC ABG pH POC ABG pCO2 27.7 L POC ABG pO2 120 H Sodium Potassium Chloride Carbon Dioxide BUN Creatinine Glucose POC Glucose 232 H 167 H Lactic Acid Calcium Phosphorus Magnesium Direct Bilirubin Troponin T C-Reactive Protein Total Protein Albumin Triglycerides Cholesterol LDL Cholesterol Direct HDL Cholesterol Urine WBC (Auto) Urine Creatinine Urine Total Protein Vancomycin Trough Rheumatoid Factor Complement C4 Crossmatch 09/16/16 09/16/16 09/16/16 03:58 10:27 10:27 WBC 19.0 H RBC 2.77 L Hgb 6.5 L Hct 20.9 L MCV 76 L MCH 23 L MCHC RDW 19.3 H Plt Count Lymph % (Auto) 11.0 L [place] % (Auto) Lymph # [place] # 1.1 H Seg Neutrophils % 82.5 H Seg Neuts % (Manual) Lymphocytes % (Manual) Monocytes % (Manual) Eosinophils % (Manual) Basophils % (Manual) Nucleated RBC % Seg Neutrophils # 15.7 H Seg Neutrophils # Man Lymphocytes # (Manual) Monocytes # (Manual) Eosinophils # (Manual) Fibrinogen dRVVT Confirm Interp Factor V Activity POC ABG pH POC ABG pCO2 POC ABG pO2 Sodium Potassium Chloride 109.3 H Carbon Dioxide 18 L BUN 139 H Creatinine 4.1 H Glucose 144 H POC Glucose 146 H Lactic Acid Calcium 8.1 L Phosphorus Magnesium Direct Bilirubin Troponin T C-Reactive Protein Total Protein Albumin Triglycerides Cholesterol LDL Cholesterol Direct HDL Cholesterol Urine WBC (Auto) Urine Creatinine Urine Total Protein Vancomycin Trough Rheumatoid Factor Complement C4 Crossmatch 09/16/16 09/16/16 09/16/16 12:04 12:10 13:55 WBC RBC Hgb Hct MCV MCH MCHC RDW Plt Count Lymph % (Auto) [place] % (Auto) Lymph # [place] # Seg Neutrophils % Seg Neuts % (Manual) Lymphocytes % (Manual) Monocytes % (Manual) Eosinophils % (Manual) Basophils % (Manual) Nucleated RBC % Seg Neutrophils # Seg Neutrophils # Man Lymphocytes # (Manual) Monocytes # (Manual) Eosinophils # (Manual) Fibrinogen dRVVT Confirm Interp Factor V Activity POC ABG pH POC ABG pCO2 32.9 L POC ABG pO2 Sodium Potassium Chloride Carbon Dioxide BUN Creatinine Glucose POC Glucose 185 H Lactic Acid Calcium Phosphorus Magnesium Direct Bilirubin Troponin T C-Reactive Protein Total Protein Albumin Triglycerides Cholesterol LDL Cholesterol Direct HDL Cholesterol Urine WBC (Auto) Urine Creatinine Urine Total Protein Vancomycin Trough Rheumatoid Factor Complement C4 Crossmatch See Detail 09/16/16 09/16/16 09/16/16 17:55 19:19 23:48 WBC RBC Hgb Hct MCV MCH MCHC RDW Plt Count Lymph % (Auto) [place] % (Auto) Lymph # [place] # Seg Neutrophils % Seg Neuts % (Manual) Lymphocytes % (Manual) Monocytes % (Manual) Eosinophils % (Manual) Basophils % (Manual) Nucleated RBC % Seg Neutrophils # Seg Neutrophils # Man Lymphocytes # (Manual) Monocytes # (Manual) Eosinophils # (Manual) Fibrinogen dRVVT Confirm Interp Factor V Activity POC ABG pH POC ABG pCO2 POC ABG pO2 Sodium Potassium Chloride Carbon Dioxide BUN Creatinine Glucose POC Glucose 222 H 107 H Lactic Acid Calcium Phosphorus Magnesium Direct Bilirubin Troponin T C-Reactive Protein Total Protein Albumin Triglycerides Cholesterol LDL Cholesterol Direct HDL Cholesterol Urine WBC (Auto) Urine Creatinine 47.4 H Urine Total Protein 16 H Vancomycin Trough Rheumatoid Factor Complement C4 Crossmatch 09/17/16 09/17/16 09/17/16 03:45 03:45 04:55 WBC 19.6 H RBC 3.41 L Hgb 8.5 L Hct 26.7 L MCV 78 L MCH 25 L MCHC RDW 19.9 H Plt Count Lymph % (Auto) 9.3 L [place] % (Auto) Lymph # [place] # 1.2 H Seg Neutrophils % 83.9 H Seg Neuts % (Manual) Lymphocytes % (Manual) Monocytes % (Manual) Eosinophils % (Manual) Basophils % (Manual) Nucleated RBC % Seg Neutrophils # 16.4 H Seg Neutrophils # Man Lymphocytes # (Manual) Monocytes # (Manual) Eosinophils # (Manual) Fibrinogen dRVVT Confirm Interp Factor V Activity POC ABG pH POC ABG pCO2 POC ABG pO2 Sodium 146 H Potassium 5.1 H Chloride 110.9 H Carbon Dioxide 16 L BUN 146 H Creatinine 4.0 H Glucose 108 H POC Glucose 133 H Lactic Acid Calcium Phosphorus Magnesium 3.00 H Direct Bilirubin Troponin T C-Reactive Protein Total Protein Albumin Triglycerides Cholesterol LDL Cholesterol Direct HDL Cholesterol Urine WBC (Auto) Urine Creatinine Urine Total Protein Vancomycin Trough Rheumatoid Factor Complement C4 Crossmatch 09/17/16 09/17/16 09/17/16 11:15 17:33 23:47 WBC RBC Hgb Hct MCV MCH MCHC RDW Plt Count Lymph % (Auto) [place] % (Auto) Lymph # [place] # Seg Neutrophils % Seg Neuts % (Manual) Lymphocytes % (Manual) Monocytes % (Manual) Eosinophils % (Manual) Basophils % (Manual) Nucleated RBC % Seg Neutrophils # Seg Neutrophils # Man Lymphocytes # (Manual) Monocytes # (Manual) Eosinophils # (Manual) Fibrinogen dRVVT Confirm Interp Factor V Activity POC ABG pH POC ABG pCO2 POC ABG pO2 Sodium Potassium Chloride Carbon Dioxide BUN Creatinine Glucose POC Glucose 176 H 246 H 148 H Lactic Acid Calcium Phosphorus Magnesium Direct Bilirubin Troponin T C-Reactive Protein Total Protein Albumin Triglycerides Cholesterol LDL Cholesterol Direct HDL Cholesterol Urine WBC (Auto) Urine Creatinine Urine Total Protein Vancomycin Trough Rheumatoid Factor Complement C4 Crossmatch 09/18/16 09/18/16 09/18/16 05:33 08:31 08:31 WBC 18.0 H RBC 3.17 L Hgb 9.0 L Hct 25.7 L MCV MCH MCHC 35 H RDW 20.4 H Plt Count Lymph % (Auto) [place] % (Auto) Lymph # [place] # Seg Neutrophils % Seg Neuts % (Manual) Lymphocytes % (Manual) Monocytes % (Manual) Eosinophils % (Manual) Basophils % (Manual) Nucleated RBC % Seg Neutrophils # Seg Neutrophils # Man Lymphocytes # (Manual) Monocytes # (Manual) Eosinophils # (Manual) Fibrinogen dRVVT Confirm Interp Factor V Activity POC ABG pH POC ABG pCO2 POC ABG pO2 Sodium Potassium Chloride Carbon Dioxide 15 L BUN 124 H Creatinine 3.8 H Glucose POC Glucose 120 H Lactic Acid Calcium 8.1 L Phosphorus Magnesium Direct Bilirubin Troponin T C-Reactive Protein Total Protein Albumin Triglycerides Cholesterol LDL Cholesterol Direct HDL Cholesterol Urine WBC (Auto) Urine Creatinine Urine Total Protein Vancomycin Trough Rheumatoid Factor Complement C4 Crossmatch 09/18/16 09/18/16 09/18/16 12:03 15:34 17:50 WBC RBC Hgb Hct MCV MCH MCHC RDW Plt Count Lymph % (Auto) [place] % (Auto) Lymph # [place] # Seg Neutrophils % Seg Neuts % (Manual) Lymphocytes % (Manual) Monocytes % (Manual) Eosinophils % (Manual) Basophils % (Manual) Nucleated RBC % Seg Neutrophils # Seg Neutrophils # Man Lymphocytes # (Manual) Monocytes # (Manual) Eosinophils # (Manual) Fibrinogen dRVVT Confirm Interp Factor V Activity POC ABG pH POC ABG pCO2 25.7 L POC ABG pO2 66 L Sodium Potassium Chloride Carbon Dioxide BUN Creatinine Glucose POC Glucose 156 H 220 H Lactic Acid Calcium Phosphorus Magnesium Direct Bilirubin Troponin T C-Reactive Protein Total Protein Albumin Triglycerides Cholesterol LDL Cholesterol Direct HDL Cholesterol Urine WBC (Auto) Urine Creatinine Urine Total Protein Vancomycin Trough Rheumatoid Factor Complement C4 Crossmatch 09/19/16 09/19/16 09/19/16 06:21 09:50 09:50 WBC 17.1 H RBC 3.49 L Hgb 9.0 L Hct 28.1 L MCV MCH 26 L MCHC RDW 20.8 H Plt Count Lymph % (Auto) 11.5 L [place] % (Auto) 7.5 H Lymph # [place] # 1.3 H Seg Neutrophils % 79.8 H Seg Neuts % (Manual) Lymphocytes % (Manual) Monocytes % (Manual) Eosinophils % (Manual) Basophils % (Manual) Nucleated RBC % Seg Neutrophils # 13.7 H Seg Neutrophils # Man Lymphocytes # (Manual) Monocytes # (Manual) Eosinophils # (Manual) Fibrinogen dRVVT Confirm Interp Factor V Activity POC ABG pH POC ABG pCO2 POC ABG pO2 Sodium Potassium Chloride 108.6 H Carbon Dioxide 15 L BUN 125 H Creatinine 4.1 H Glucose 124 H POC Glucose 119 H Lactic Acid Calcium Phosphorus Magnesium Direct Bilirubin Troponin T C-Reactive Protein Total Protein Albumin Triglycerides Cholesterol LDL Cholesterol Direct HDL Cholesterol Urine WBC (Auto) Urine Creatinine Urine Total Protein Vancomycin Trough Rheumatoid Factor Complement C4 Crossmatch 09/19/16 09/19/16 09/19/16 11:25 17:53 23:36 WBC RBC Hgb Hct MCV MCH MCHC RDW Plt Count Lymph % (Auto) [place] % (Auto) Lymph # [place] # Seg Neutrophils % Seg Neuts % (Manual) Lymphocytes % (Manual) Monocytes % (Manual) Eosinophils % (Manual) Basophils % (Manual) Nucleated RBC % Seg Neutrophils # Seg Neutrophils # Man Lymphocytes # (Manual) Monocytes # (Manual) Eosinophils # (Manual) Fibrinogen dRVVT Confirm Interp Factor V Activity POC ABG pH POC ABG pCO2 POC ABG pO2 Sodium Potassium Chloride Carbon Dioxide BUN Creatinine Glucose POC Glucose 160 H 245 H 121 H Lactic Acid Calcium Phosphorus Magnesium Direct Bilirubin Troponin T C-Reactive Protein Total Protein Albumin Triglycerides Cholesterol LDL Cholesterol Direct HDL Cholesterol Urine WBC (Auto) Urine Creatinine Urine Total Protein Vancomycin Trough Rheumatoid Factor Complement C4 Crossmatch 09/20/16 09/20/16 09/20/16 04:10 04:10 04:10 WBC 17.0 H RBC 3.21 L Hgb 8.2 L Hct 25.5 L MCV MCH 26 L MCHC RDW 20.9 H Plt Count Lymph % (Auto) [place] % (Auto) Lymph # [place] # Seg Neutrophils % Seg Neuts % (Manual) Lymphocytes % (Manual) Monocytes % (Manual) Eosinophils % (Manual) Basophils % (Manual) Nucleated RBC % Seg Neutrophils # Seg Neutrophils # Man Lymphocytes # (Manual) Monocytes # (Manual) Eosinophils # (Manual) Fibrinogen dRVVT Confirm Interp Factor V Activity POC ABG pH POC ABG pCO2 POC ABG pO2 Sodium Potassium Chloride 111.0 H Carbon Dioxide 16 L BUN 129 H Creatinine 3.7 H Glucose 115 H POC Glucose Lactic Acid Calcium 8.2 L Phosphorus Magnesium Direct Bilirubin Troponin T C-Reactive Protein Total Protein Albumin Triglycerides 243 H Cholesterol LDL Cholesterol Direct HDL Cholesterol Urine WBC (Auto) Urine Creatinine Urine Total Protein Vancomycin Trough Rheumatoid Factor Complement C4 Crossmatch 09/20/16 09/20/16 09/20/16 05:40 11:52 16:50 WBC RBC Hgb Hct MCV MCH MCHC RDW Plt Count Lymph % (Auto) [place] % (Auto) Lymph # [place] # Seg Neutrophils % Seg Neuts % (Manual) Lymphocytes % (Manual) Monocytes % (Manual) Eosinophils % (Manual) Basophils % (Manual) Nucleated RBC % Seg Neutrophils # Seg Neutrophils # Man Lymphocytes # (Manual) Monocytes # (Manual) Eosinophils # (Manual) Fibrinogen dRVVT Confirm Interp Factor V Activity POC ABG pH POC ABG pCO2 POC ABG pO2 Sodium Potassium Chloride Carbon Dioxide BUN Creatinine Glucose POC Glucose 131 H 183 H 236 H Lactic Acid Calcium Phosphorus Magnesium Direct Bilirubin Troponin T C-Reactive Protein Total Protein Albumin Triglycerides Cholesterol LDL Cholesterol Direct HDL Cholesterol Urine WBC (Auto) Urine Creatinine Urine Total Protein Vancomycin Trough Rheumatoid Factor Complement C4 Crossmatch 09/20/16 09/21/16 09/21/16 23:51 03:30 04:44 WBC RBC Hgb Hct MCV MCH MCHC RDW Plt Count Lymph % (Auto) [place] % (Auto) Lymph # [place] # Seg Neutrophils % Seg Neuts % (Manual) Lymphocytes % (Manual) Monocytes % (Manual) Eosinophils % (Manual) Basophils % (Manual) Nucleated RBC % Seg Neutrophils # Seg Neutrophils # Man Lymphocytes # (Manual) Monocytes # (Manual) Eosinophils # (Manual) Fibrinogen dRVVT Confirm Interp Factor V Activity POC ABG pH POC ABG pCO2 POC ABG pO2 Sodium Potassium Chloride Carbon Dioxide BUN Creatinine Glucose POC Glucose 114 H 141 H Lactic Acid Calcium Phosphorus Magnesium 2.70 H Direct Bilirubin Troponin T C-Reactive Protein Total Protein Albumin Triglycerides Cholesterol LDL Cholesterol Direct HDL Cholesterol Urine WBC (Auto) Urine Creatinine Urine Total Protein Vancomycin Trough Rheumatoid Factor Complement C4 Crossmatch 09/21/16 09/21/16 09/21/16 07:45 07:45 10:01 WBC 13.8 H RBC 2.94 L Hgb 7.5 L Hct 23.5 L MCV MCH 26 L MCHC RDW 21.2 H Plt Count Lymph % (Auto) 6.9 L [place] % (Auto) 9.4 H Lymph # 0.9 L [place] # 1.3 H Seg Neutrophils % 83.2 H Seg Neuts % (Manual) Lymphocytes % (Manual) Monocytes % (Manual) Eosinophils % (Manual) Basophils % (Manual) Nucleated RBC % Seg Neutrophils # 11.5 H Seg Neutrophils # Man Lymphocytes # (Manual) Monocytes # (Manual) Eosinophils # (Manual) Fibrinogen dRVVT Confirm Interp Factor V Activity POC ABG pH 7.308 L POC ABG pCO2 31.9 L POC ABG pO2 148 H Sodium 147 H Potassium Chloride 114.2 H Carbon Dioxide 15 L BUN 120 H Creatinine 3.9 H Glucose 156 H POC Glucose Lactic Acid Calcium 8.2 L Phosphorus Magnesium Direct Bilirubin Troponin T C-Reactive Protein Total Protein Albumin Triglycerides Cholesterol LDL Cholesterol Direct HDL Cholesterol Urine WBC (Auto) Urine Creatinine Urine Total Protein Vancomycin Trough Rheumatoid Factor Complement C4 Crossmatch 09/21/16 09/21/16 09/21/16 12:00 12:03 13:00 WBC RBC Hgb Hct MCV MCH MCHC RDW Plt Count Lymph % (Auto) [place] % (Auto) Lymph # [place] # Seg Neutrophils % Seg Neuts % (Manual) Lymphocytes % (Manual) Monocytes % (Manual) Eosinophils % (Manual) Basophils % (Manual) Nucleated RBC % Seg Neutrophils # Seg Neutrophils # Man Lymphocytes # (Manual) Monocytes # (Manual) Eosinophils # (Manual) Fibrinogen dRVVT Confirm Interp Factor V Activity POC ABG pH POC ABG pCO2 POC ABG pO2 Sodium Potassium Chloride Carbon Dioxide BUN Creatinine Glucose POC Glucose 163 H Lactic Acid Calcium Phosphorus Magnesium Direct Bilirubin Troponin T C-Reactive Protein Total Protein Albumin Triglycerides Cholesterol LDL Cholesterol Direct HDL Cholesterol Urine WBC (Auto) Urine Creatinine 54.8 H Urine Total Protein Vancomycin Trough 2.3 L Rheumatoid Factor Complement C4 Crossmatch 09/21/16 09/21/16 09/22/16 16:51 23:17 06:27 WBC RBC Hgb Hct MCV MCH MCHC RDW Plt Count Lymph % (Auto) [place] % (Auto) Lymph # [place] # Seg Neutrophils % Seg Neuts % (Manual) Lymphocytes % (Manual) Monocytes % (Manual) Eosinophils % (Manual) Basophils % (Manual) Nucleated RBC % Seg Neutrophils # Seg Neutrophils # Man Lymphocytes # (Manual) Monocytes # (Manual) Eosinophils # (Manual) Fibrinogen dRVVT Confirm Interp Factor V Activity POC ABG pH POC ABG pCO2 POC ABG pO2 Sodium Potassium Chloride Carbon Dioxide BUN Creatinine Glucose POC Glucose 206 H 114 H 115 H Lactic Acid Calcium Phosphorus Magnesium Direct Bilirubin Troponin T C-Reactive Protein Total Protein Albumin Triglycerides Cholesterol LDL Cholesterol Direct HDL Cholesterol Urine WBC (Auto) Urine Creatinine Urine Total Protein Vancomycin Trough Rheumatoid Factor Complement C4 Crossmatch 09/22/16 09/22/16 09/22/16 07:50 07:50 12:00 WBC 17.8 H RBC 3.04 L Hgb 8.0 L Hct 24.7 L MCV MCH 26 L MCHC RDW 21.6 H Plt Count Lymph % (Auto) [place] % (Auto) Lymph # [place] # Seg Neutrophils % Seg Neuts % (Manual) Lymphocytes % (Manual) Monocytes % (Manual) Eosinophils % (Manual) Basophils % (Manual) Nucleated RBC % Seg Neutrophils # Seg Neutrophils # Man Lymphocytes # (Manual) Monocytes # (Manual) Eosinophils # (Manual) Fibrinogen dRVVT Confirm Interp Factor V Activity POC ABG pH POC ABG pCO2 POC ABG pO2 Sodium 150 H Potassium Chloride 118.2 H Carbon Dioxide 14 L BUN 111 H Creatinine 3.7 H Glucose 157 H POC Glucose 183 H Lactic Acid Calcium Phosphorus Magnesium Direct Bilirubin Troponin T C-Reactive Protein Total Protein Albumin Triglycerides Cholesterol LDL Cholesterol Direct HDL Cholesterol Urine WBC (Auto) Urine Creatinine Urine Total Protein Vancomycin Trough Rheumatoid Factor Complement C4 Crossmatch 09/22/16 09/22/16 09/23/16 17:29 23:10 05:00 WBC 19.2 H RBC 3.13 L Hgb 8.0 L Hct 25.2 L MCV MCH 26 L MCHC RDW 22.1 H Plt Count Lymph % (Auto) [place] % (Auto) Lymph # [place] # Seg Neutrophils % Seg Neuts % (Manual) 92.0 H Lymphocytes % (Manual) 3.0 L Monocytes % (Manual) Eosinophils % (Manual) Basophils % (Manual) Nucleated RBC % Seg Neutrophils # Seg Neutrophils # Man 17.7 H Lymphocytes # (Manual) 0.6 L Monocytes # (Manual) Eosinophils # (Manual) Fibrinogen dRVVT Confirm Interp Factor V Activity POC ABG pH POC ABG pCO2 POC ABG pO2 Sodium Potassium Chloride Carbon Dioxide BUN Creatinine Glucose POC Glucose 197 H 169 H Lactic Acid Calcium Phosphorus Magnesium Direct Bilirubin Troponin T C-Reactive Protein Total Protein Albumin Triglycerides Cholesterol LDL Cholesterol Direct HDL Cholesterol Urine WBC (Auto) Urine Creatinine Urine Total Protein Vancomycin Trough Rheumatoid Factor Complement C4 Crossmatch 09/23/16 09/23/16 09/23/16 05:00 05:00 05:10 WBC RBC Hgb Hct MCV MCH MCHC RDW Plt Count Lymph % (Auto) [place] % (Auto) Lymph # [place] # Seg Neutrophils % Seg Neuts % (Manual) Lymphocytes % (Manual) Monocytes % (Manual) Eosinophils % (Manual) Basophils % (Manual) Nucleated RBC % Seg Neutrophils # Seg Neutrophils # Man Lymphocytes # (Manual) Monocytes # (Manual) Eosinophils # (Manual) Fibrinogen dRVVT Confirm Interp Factor V Activity POC ABG pH POC ABG pCO2 POC ABG pO2 Sodium 147 H Potassium 3.2 L Chloride 115.7 H Carbon Dioxide 13 L BUN 111 H Creatinine 3.8 H Glucose 194 H POC Glucose 188 H Lactic Acid Calcium 7.3 L D Phosphorus Magnesium Direct Bilirubin Troponin T C-Reactive Protein 3.20 H Total Protein Albumin Triglycerides Cholesterol LDL Cholesterol Direct HDL Cholesterol Urine WBC (Auto) Urine Creatinine Urine Total Protein Vancomycin Trough Rheumatoid Factor Complement C4 Crossmatch 09/23/16 09/23/16 09/23/16 11:37 12:29 18:01 WBC RBC Hgb Hct MCV MCH MCHC RDW Plt Count Lymph % (Auto) [place] % (Auto) Lymph # [place] # Seg Neutrophils % Seg Neuts % (Manual) Lymphocytes % (Manual) Monocytes % (Manual) Eosinophils % (Manual) Basophils % (Manual) Nucleated RBC % Seg Neutrophils # Seg Neutrophils # Man Lymphocytes # (Manual) Monocytes # (Manual) Eosinophils # (Manual) Fibrinogen dRVVT Confirm Interp Factor V Activity POC ABG pH POC ABG pCO2 18.9 L POC ABG pO2 143 H Sodium Potassium Chloride Carbon Dioxide BUN Creatinine Glucose POC Glucose 153 H 108 H Lactic Acid Calcium Phosphorus Magnesium Direct Bilirubin Troponin T C-Reactive Protein Total Protein Albumin Triglycerides Cholesterol LDL Cholesterol Direct HDL Cholesterol Urine WBC (Auto) Urine Creatinine Urine Total Protein Vancomycin Trough Rheumatoid Factor Complement C4 Crossmatch 09/23/16 09/23/16 09/24/16 21:19 23:43 05:16 WBC RBC Hgb Hct MCV MCH MCHC RDW Plt Count Lymph % (Auto) [place] % (Auto) Lymph # [place] # Seg Neutrophils % Seg Neuts % (Manual) Lymphocytes % (Manual) Monocytes % (Manual) Eosinophils % (Manual) Basophils % (Manual) Nucleated RBC % Seg Neutrophils # Seg Neutrophils # Man Lymphocytes # (Manual) Monocytes # (Manual) Eosinophils # (Manual) Fibrinogen dRVVT Confirm Interp Factor V Activity POC ABG pH POC ABG pCO2 17.3 L POC ABG pO2 112 H Sodium Potassium Chloride Carbon Dioxide BUN Creatinine Glucose POC Glucose 143 H 164 H Lactic Acid Calcium Phosphorus Magnesium Direct Bilirubin Troponin T C-Reactive Protein Total Protein Albumin Triglycerides Cholesterol LDL Cholesterol Direct HDL Cholesterol Urine WBC (Auto) Urine Creatinine Urine Total Protein Vancomycin Trough Rheumatoid Factor Complement C4 Crossmatch 09/24/16 09/24/16 09/24/16 05:21 11:58 17:06 WBC RBC Hgb Hct MCV MCH MCHC RDW Plt Count Lymph % (Auto) [place] % (Auto) Lymph # [place] # Seg Neutrophils % Seg Neuts % (Manual) Lymphocytes % (Manual) Monocytes % (Manual) Eosinophils % (Manual) Basophils % (Manual) Nucleated RBC % Seg Neutrophils # Seg Neutrophils # Man Lymphocytes # (Manual) Monocytes # (Manual) Eosinophils # (Manual) Fibrinogen dRVVT Confirm Interp Factor V Activity POC ABG pH POC ABG pCO2 POC ABG pO2 Sodium Potassium Chloride Carbon Dioxide 10 L BUN 103 H Creatinine 4.3 H Glucose 163 H POC Glucose 173 H 167 H Lactic Acid Calcium 6.5 L Phosphorus Magnesium Direct Bilirubin Troponin T C-Reactive Protein Total Protein Albumin Triglycerides Cholesterol LDL Cholesterol Direct HDL Cholesterol Urine WBC (Auto) Urine Creatinine Urine Total Protein Vancomycin Trough Rheumatoid Factor Complement C4 Crossmatch 09/24/16 09/24/16 09/24/16 20:15 21:02 23:48 WBC RBC Hgb Hct MCV MCH MCHC RDW Plt Count Lymph % (Auto) [place] % (Auto) Lymph # [place] # Seg Neutrophils % Seg Neuts % (Manual) Lymphocytes % (Manual) Monocytes % (Manual) Eosinophils % (Manual) Basophils % (Manual) Nucleated RBC % Seg Neutrophils # Seg Neutrophils # Man Lymphocytes # (Manual) Monocytes # (Manual) Eosinophils # (Manual) Fibrinogen dRVVT Confirm Interp Factor V Activity POC ABG pH 7.288 L POC ABG pCO2 30.2 L 21.5 L POC ABG pO2 32 L 39 L Sodium Potassium Chloride Carbon Dioxide BUN Creatinine Glucose POC Glucose 109 H Lactic Acid Calcium Phosphorus Magnesium Direct Bilirubin Troponin T C-Reactive Protein Total Protein Albumin Triglycerides Cholesterol LDL Cholesterol Direct HDL Cholesterol Urine WBC (Auto) Urine Creatinine Urine Total Protein Vancomycin Trough Rheumatoid Factor Complement C4 Crossmatch 09/25/16 09/25/16 09/25/16 04:20 04:20 04:20 WBC RBC 2.58 L Hgb 7.0 L Hct 21.0 L MCV MCH 27 L MCHC RDW 23.8 H Plt Count Lymph % (Auto) [place] % (Auto) Lymph # [place] # Seg Neutrophils % Seg Neuts % (Manual) Lymphocytes % (Manual) 12.0 L Monocytes % (Manual) Eosinophils % (Manual) 7.0 H Basophils % (Manual) 2.0 H Nucleated RBC % Seg Neutrophils # Seg Neutrophils # Man Lymphocytes # (Manual) 0.9 L Monocytes # (Manual) Eosinophils # (Manual) 0.5 H Fibrinogen dRVVT Confirm Interp Factor V Activity POC ABG pH POC ABG pCO2 POC ABG pO2 Sodium Potassium Chloride Carbon Dioxide 15 L BUN 72 H Creatinine 3.8 H Glucose POC Glucose Lactic Acid Calcium 6.0 L Phosphorus 4.60 H Magnesium 1.60 L Direct Bilirubin Troponin T C-Reactive Protein Total Protein Albumin Triglycerides Cholesterol LDL Cholesterol Direct HDL Cholesterol Urine WBC (Auto) Urine Creatinine Urine Total Protein Vancomycin Trough Rheumatoid Factor Complement C4 Crossmatch 09/25/16 09/25/16 09/25/16 04:57 08:02 10:30 WBC RBC Hgb Hct MCV MCH MCHC RDW Plt Count Lymph % (Auto) [place] % (Auto) Lymph # [place] # Seg Neutrophils % Seg Neuts % (Manual) Lymphocytes % (Manual) Monocytes % (Manual) Eosinophils % (Manual) Basophils % (Manual) Nucleated RBC % Seg Neutrophils # Seg Neutrophils # Man Lymphocytes # (Manual) Monocytes # (Manual) Eosinophils # (Manual) Fibrinogen dRVVT Confirm Interp Factor V Activity POC ABG pH POC ABG pCO2 24.7 L POC ABG pO2 152 H Sodium Potassium Chloride Carbon Dioxide BUN Creatinine Glucose POC Glucose 113 H Lactic Acid Calcium Phosphorus Magnesium Direct Bilirubin Troponin T C-Reactive Protein Total Protein Albumin Triglycerides Cholesterol LDL Cholesterol Direct HDL Cholesterol Urine WBC (Auto) Urine Creatinine Urine Total Protein Vancomycin Trough Rheumatoid Factor Complement C4 Crossmatch See Detail 09/25/16 09/25/16 09/25/16 12:05 17:44 23:47 WBC RBC Hgb Hct MCV MCH MCHC RDW Plt Count Lymph % (Auto) [place] % (Auto) Lymph # [place] # Seg Neutrophils % Seg Neuts % (Manual) Lymphocytes % (Manual) Monocytes % (Manual) Eosinophils % (Manual) Basophils % (Manual) Nucleated RBC % Seg Neutrophils # Seg Neutrophils # Man Lymphocytes # (Manual) Monocytes # (Manual) Eosinophils # (Manual) Fibrinogen dRVVT Confirm Interp Factor V Activity POC ABG pH POC ABG pCO2 POC ABG pO2 Sodium Potassium Chloride Carbon Dioxide BUN Creatinine Glucose POC Glucose 117 H 119 H 150 H Lactic Acid Calcium Phosphorus Magnesium Direct Bilirubin Troponin T C-Reactive Protein Total Protein Albumin Triglycerides Cholesterol LDL Cholesterol Direct HDL Cholesterol Urine WBC (Auto) Urine Creatinine Urine Total Protein Vancomycin Trough Rheumatoid Factor Complement C4 Crossmatch 09/26/16 09/26/16 09/26/16 04:25 04:25 04:25 WBC RBC 2.65 L Hgb 7.4 L Hct 21.6 L MCV MCH MCHC RDW 22.5 H Plt Count Lymph % (Auto) [place] % (Auto) Lymph # [place] # Seg Neutrophils % Seg Neuts % (Manual) Lymphocytes % (Manual) 6.0 L Monocytes % (Manual) Eosinophils % (Manual) 11.0 H Basophils % (Manual) Nucleated RBC % Seg Neutrophils # Seg Neutrophils # Man Lymphocytes # (Manual) 0.4 L Monocytes # (Manual) Eosinophils # (Manual) 0.6 H Fibrinogen dRVVT Confirm Interp Factor V Activity POC ABG pH POC ABG pCO2 POC ABG pO2 Sodium Potassium Chloride 97.0 L Carbon Dioxide 19 L BUN 43 H Creatinine 2.6 H Glucose 130 H POC Glucose Lactic Acid 4.40 H* Calcium 6.7 L Phosphorus Magnesium Direct Bilirubin Troponin T C-Reactive Protein Total Protein Albumin Triglycerides Cholesterol LDL Cholesterol Direct HDL Cholesterol Urine WBC (Auto) Urine Creatinine Urine Total Protein Vancomycin Trough Rheumatoid Factor Complement C4 Crossmatch 09/26/16 09/26/16 09/26/16 05:20 11:44 12:12 WBC RBC Hgb Hct MCV MCH MCHC RDW Plt Count Lymph % (Auto) [place] % (Auto) Lymph # [place] # Seg Neutrophils % Seg Neuts % (Manual) Lymphocytes % (Manual) Monocytes % (Manual) Eosinophils % (Manual) Basophils % (Manual) Nucleated RBC % Seg Neutrophils # Seg Neutrophils # Man Lymphocytes # (Manual) Monocytes # (Manual) Eosinophils # (Manual) Fibrinogen dRVVT Confirm Interp Factor V Activity POC ABG pH POC ABG pCO2 27.0 L POC ABG pO2 69 L Sodium Potassium Chloride Carbon Dioxide BUN Creatinine Glucose POC Glucose 121 H 128 H Lactic Acid Calcium Phosphorus Magnesium Direct Bilirubin Troponin T C-Reactive Protein Total Protein Albumin Triglycerides Cholesterol LDL Cholesterol Direct HDL Cholesterol Urine WBC (Auto) Urine Creatinine Urine Total Protein Vancomycin Trough Rheumatoid Factor Complement C4 Crossmatch 09/26/16 09/26/16 09/27/16 18:31 23:40 08:20 WBC RBC Hgb Hct MCV MCH MCHC RDW Plt Count Lymph % (Auto) [place] % (Auto) Lymph # [place] # Seg Neutrophils % Seg Neuts % (Manual) Lymphocytes % (Manual) Monocytes % (Manual) Eosinophils % (Manual) Basophils % (Manual) Nucleated RBC % Seg Neutrophils # Seg Neutrophils # Man Lymphocytes # (Manual) Monocytes # (Manual) Eosinophils # (Manual) Fibrinogen dRVVT Confirm Interp Factor V Activity POC ABG pH POC ABG pCO2 POC ABG pO2 Sodium Potassium Chloride Carbon Dioxide BUN Creatinine Glucose POC Glucose 120 H 133 H Lactic Acid 4.10 H* Calcium Phosphorus Magnesium Direct Bilirubin Troponin T C-Reactive Protein Total Protein Albumin Triglycerides Cholesterol LDL Cholesterol Direct HDL Cholesterol Urine WBC (Auto) Urine Creatinine Urine Total Protein Vancomycin Trough Rheumatoid Factor Complement C4 Crossmatch 09/27/16 09/27/16 09/27/16 11:23 15:00 18:15 WBC RBC Hgb Hct MCV MCH MCHC RDW Plt Count Lymph % (Auto) [place] % (Auto) Lymph # [place] # Seg Neutrophils % Seg Neuts % (Manual) Lymphocytes % (Manual) Monocytes % (Manual) Eosinophils % (Manual) Basophils % (Manual) Nucleated RBC % Seg Neutrophils # Seg Neutrophils # Man Lymphocytes # (Manual) Monocytes # (Manual) Eosinophils # (Manual) Fibrinogen dRVVT Confirm Interp Factor V Activity POC ABG pH 7.459 H POC ABG pCO2 27.1 L POC ABG pO2 140 H Sodium Potassium Chloride Carbon Dioxide BUN Creatinine Glucose POC Glucose 114 H 127 H Lactic Acid Calcium Phosphorus Magnesium Direct Bilirubin Troponin T C-Reactive Protein Total Protein Albumin Triglycerides Cholesterol LDL Cholesterol Direct HDL Cholesterol Urine WBC (Auto) Urine Creatinine Urine Total Protein Vancomycin Trough Rheumatoid Factor Complement C4 Crossmatch 09/27/16 09/27/16 09/28/16 Unknown Unknown 03:45 WBC RBC 2.49 L Hgb 6.8 L Hct 20.7 L MCV MCH 27 L MCHC RDW 22.1 H Plt Count Lymph % (Auto) [place] % (Auto) Lymph # [place] # Seg Neutrophils % Seg Neuts % (Manual) 32.0 L Lymphocytes % (Manual) 12.0 L Monocytes % (Manual) 11.0 H Eosinophils % (Manual) 10.0 H Basophils % (Manual) Nucleated RBC % Seg Neutrophils # Seg Neutrophils # Man Lymphocytes # (Manual) 1.0 L Monocytes # (Manual) 0.9 H Eosinophils # (Manual) 0.8 H Fibrinogen dRVVT Confirm Interp Factor V Activity POC ABG pH POC ABG pCO2 POC ABG pO2 Sodium 135 L 135 L Potassium 3.5 L Chloride 93.6 L 94.4 L Carbon Dioxide 17 L 21 L BUN 45 H 28 H Creatinine 3.3 H 2.5 H Glucose 106 H POC Glucose Lactic Acid Calcium 7.3 L 7.1 L Phosphorus Magnesium Direct Bilirubin Troponin T C-Reactive Protein Total Protein Albumin Triglycerides Cholesterol LDL Cholesterol Direct HDL Cholesterol Urine WBC (Auto) Urine Creatinine Urine Total Protein Vancomycin Trough Rheumatoid Factor Complement C4 Crossmatch 09/28/16 09/28/16 09/28/16 03:45 07:25 11:58 WBC 13.3 H RBC 3.01 L Hgb 8.4 L Hct 25.0 L MCV MCH MCHC RDW 20.5 H Plt Count 128 L Lymph % (Auto) [place] % (Auto) Lymph # [place] # Seg Neutrophils % Seg Neuts % (Manual) Lymphocytes % (Manual) 7.0 L Monocytes % (Manual) Eosinophils % (Manual) 6.0 H Basophils % (Manual) Nucleated RBC % Seg Neutrophils # Seg Neutrophils # Man Lymphocytes # (Manual) 0.9 L Monocytes # (Manual) Eosinophils # (Manual) 0.8 H Fibrinogen dRVVT Confirm Interp Factor V Activity POC ABG pH POC ABG pCO2 POC ABG pO2 Sodium Potassium Chloride Carbon Dioxide BUN Creatinine Glucose POC Glucose 121 H Lactic Acid 4.50 H* Calcium Phosphorus Magnesium Direct Bilirubin Troponin T C-Reactive Protein Total Protein Albumin Triglycerides Cholesterol LDL Cholesterol Direct HDL Cholesterol Urine WBC (Auto) Urine Creatinine Urine Total Protein Vancomycin Trough Rheumatoid Factor Complement C4 Crossmatch 09/29/16 09/29/16 09/29/16 06:45 06:45 06:45 WBC 14.9 H RBC 2.74 L Hgb 7.6 L Hct 23.2 L MCV MCH MCHC RDW 20.5 H Plt Count 81 L Lymph % (Auto) [place] % (Auto) Lymph # [place] # Seg Neutrophils % Seg Neuts % (Manual) 81.0 H Lymphocytes % (Manual) 4.0 L Monocytes % (Manual) Eosinophils % (Manual) Basophils % (Manual) Nucleated RBC % Seg Neutrophils # Seg Neutrophils # Man 12.1 H Lymphocytes # (Manual) 0.6 L Monocytes # (Manual) Eosinophils # (Manual) Fibrinogen dRVVT Confirm Interp Factor V Activity POC ABG pH POC ABG pCO2 POC ABG pO2 Sodium 133 L Potassium 3.4 L Chloride 92.5 L Carbon Dioxide 21 L BUN 33 H Creatinine 3.0 H Glucose POC Glucose Lactic Acid Calcium 6.6 L Phosphorus Magnesium 1.40 L Direct Bilirubin 0.9 H Troponin T C-Reactive Protein Total Protein 4.3 L Albumin 1.3 L Triglycerides Cholesterol LDL Cholesterol Direct HDL Cholesterol Urine WBC (Auto) Urine Creatinine Urine Total Protein Vancomycin Trough Rheumatoid Factor Complement C4 Crossmatch 09/29/16 09/29/16 09/30/16 17:52 20:12 00:07 WBC RBC Hgb Hct MCV MCH MCHC RDW Plt Count Lymph % (Auto) [place] % (Auto) Lymph # [place] # Seg Neutrophils % Seg Neuts % (Manual) Lymphocytes % (Manual) Monocytes % (Manual) Eosinophils % (Manual) Basophils % (Manual) Nucleated RBC % Seg Neutrophils # Seg Neutrophils # Man Lymphocytes # (Manual) Monocytes # (Manual) Eosinophils # (Manual) Fibrinogen dRVVT Confirm Interp Factor V Activity POC ABG pH POC ABG pCO2 POC ABG pO2 Sodium Potassium Chloride Carbon Dioxide BUN Creatinine Glucose POC Glucose 50 L 51 L Lactic Acid Calcium Phosphorus Magnesium Direct Bilirubin Troponin T 0.204 H* C-Reactive Protein Total Protein Albumin Triglycerides Cholesterol 31 L LDL Cholesterol Direct 4 L HDL Cholesterol 3 L Urine WBC (Auto) Urine Creatinine Urine Total Protein Vancomycin Trough Rheumatoid Factor Complement C4 Crossmatch 09/30/16 09/30/16 09/30/16 01:30 05:15 06:10 WBC RBC Hgb Hct MCV MCH MCHC RDW Plt Count Lymph % (Auto) [place] % (Auto) Lymph # [place] # Seg Neutrophils % Seg Neuts % (Manual) Lymphocytes % (Manual) Monocytes % (Manual) Eosinophils % (Manual) Basophils % (Manual) Nucleated RBC % Seg Neutrophils # Seg Neutrophils # Man Lymphocytes # (Manual) Monocytes # (Manual) Eosinophils # (Manual) Fibrinogen dRVVT Confirm Interp Factor V Activity POC ABG pH POC ABG pCO2 POC ABG pO2 Sodium 133 L Potassium 3.2 L Chloride 93.2 L Carbon Dioxide 19 L BUN 36 H Creatinine 3.2 H Glucose 104 H POC Glucose 167 H 146 H Lactic Acid Calcium 6.4 L Phosphorus Magnesium 1.60 L Direct Bilirubin Troponin T C-Reactive Protein Total Protein Albumin Triglycerides Cholesterol LDL Cholesterol Direct HDL Cholesterol Urine WBC (Auto) Urine Creatinine Urine Total Protein Vancomycin Trough Rheumatoid Factor Complement C4 Crossmatch 09/30/16 09/30/16 09/30/16 11:26 13:39 18:38 WBC RBC Hgb Hct MCV MCH MCHC RDW Plt Count Lymph % (Auto) [place] % (Auto) Lymph # [place] # Seg Neutrophils % Seg Neuts % (Manual) Lymphocytes % (Manual) Monocytes % (Manual) Eosinophils % (Manual) Basophils % (Manual) Nucleated RBC % Seg Neutrophils # Seg Neutrophils # Man Lymphocytes # (Manual) Monocytes # (Manual) Eosinophils # (Manual) Fibrinogen dRVVT Confirm Interp Factor V Activity POC ABG pH 7.479 H POC ABG pCO2 29.8 L POC ABG pO2 117 H Sodium Potassium Chloride Carbon Dioxide BUN Creatinine Glucose POC Glucose 140 H 122 H Lactic Acid Calcium Phosphorus Magnesium Direct Bilirubin Troponin T C-Reactive Protein Total Protein Albumin Triglycerides Cholesterol LDL Cholesterol Direct HDL Cholesterol Urine WBC (Auto) Urine Creatinine Urine Total Protein Vancomycin Trough Rheumatoid Factor Complement C4 Crossmatch 10/01/16 10/01/16 10/01/16 06:00 06:00 12:37 WBC 12.6 H RBC 2.75 L Hgb 7.3 L Hct 23.3 L MCV MCH 27 L MCHC RDW 20.6 H Plt Count 72 L Lymph % (Auto) [place] % (Auto) Lymph # [place] # Seg Neutrophils % Seg Neuts % (Manual) 31.0 L Lymphocytes % (Manual) 8.0 L Monocytes % (Manual) Eosinophils % (Manual) Basophils % (Manual) Nucleated RBC % 3.0 H Seg Neutrophils # Seg Neutrophils # Man Lymphocytes # (Manual) 1.0 L Monocytes # (Manual) Eosinophils # (Manual) Fibrinogen dRVVT Confirm Interp Factor V Activity POC ABG pH POC ABG pCO2 POC ABG pO2 Sodium 127 L Potassium Chloride 86.8 L Carbon Dioxide 20 L BUN 42 H Creatinine 3.5 H Glucose POC Glucose 65 L Lactic Acid Calcium 7.0 L Phosphorus Magnesium Direct Bilirubin Troponin T C-Reactive Protein Total Protein Albumin Triglycerides Cholesterol LDL Cholesterol Direct HDL Cholesterol Urine WBC (Auto) Urine Creatinine Urine Total Protein Vancomycin Trough Rheumatoid Factor Complement C4 Crossmatch 10/01/16 10/01/16 10/02/16 17:39 23:32 00:59 WBC RBC Hgb Hct MCV MCH MCHC RDW Plt Count Lymph % (Auto) [place] % (Auto) Lymph # [place] # Seg Neutrophils % Seg Neuts % (Manual) Lymphocytes % (Manual) Monocytes % (Manual) Eosinophils % (Manual) Basophils % (Manual) Nucleated RBC % Seg Neutrophils # Seg Neutrophils # Man Lymphocytes # (Manual) Monocytes # (Manual) Eosinophils # (Manual) Fibrinogen dRVVT Confirm Interp Factor V Activity POC ABG pH POC ABG pCO2 POC ABG pO2 Sodium Potassium Chloride Carbon Dioxide BUN Creatinine Glucose POC Glucose 107 H 52 L 145 H Lactic Acid Calcium Phosphorus Magnesium Direct Bilirubin Troponin T C-Reactive Protein Total Protein Albumin Triglycerides Cholesterol LDL Cholesterol Direct HDL Cholesterol Urine WBC (Auto) Urine Creatinine Urine Total Protein Vancomycin Trough Rheumatoid Factor Complement C4 Crossmatch 10/02/16 10/02/16 10/02/16 10:30 10:50 10:50 WBC 14.7 H RBC 2.76 L Hgb 7.4 L Hct 23.6 L MCV MCH 27 L MCHC RDW 20.2 H Plt Count 79 L Lymph % (Auto) [place] % (Auto) Lymph # [place] # Seg Neutrophils % Seg Neuts % (Manual) 86.0 H Lymphocytes % (Manual) 6.0 L Monocytes % (Manual) Eosinophils % (Manual) Basophils % (Manual) Nucleated RBC % Seg Neutrophils # Seg Neutrophils # Man 12.6 H Lymphocytes # (Manual) 0.9 L Monocytes # (Manual) Eosinophils # (Manual) Fibrinogen dRVVT Confirm Interp Factor V Activity POC ABG pH 7.486 H POC ABG pCO2 30.1 L POC ABG pO2 108 H Sodium 131 L Potassium 3.4 L Chloride 89.9 L Carbon Dioxide BUN 26 H Creatinine 2.6 H Glucose POC Glucose Lactic Acid Calcium 7.0 L Phosphorus Magnesium Direct Bilirubin Troponin T C-Reactive Protein Total Protein Albumin Triglycerides Cholesterol LDL Cholesterol Direct HDL Cholesterol Urine WBC (Auto) Urine Creatinine Urine Total Protein Vancomycin Trough Rheumatoid Factor Complement C4 Crossmatch 10/02/16 10/03/16 10/03/16 23:45 00:45 05:10 WBC 12.9 H RBC 2.77 L Hgb 7.6 L Hct 23.7 L MCV MCH 27 L MCHC RDW 19.7 H Plt Count 89 L Lymph % (Auto) [place] % (Auto) Lymph # [place] # Seg Neutrophils % Seg Neuts % (Manual) Lymphocytes % (Manual) 8.0 L Monocytes % (Manual) Eosinophils % (Manual) Basophils % (Manual) Nucleated RBC % Seg Neutrophils # 11.9 H Seg Neutrophils # Man Lymphocytes # (Manual) 1.0 L Monocytes # (Manual) Eosinophils # (Manual) Fibrinogen dRVVT Confirm Interp Factor V Activity POC ABG pH POC ABG pCO2 POC ABG pO2 Sodium Potassium Chloride Carbon Dioxide BUN Creatinine Glucose POC Glucose 55 L 199 H Lactic Acid Calcium Phosphorus Magnesium Direct Bilirubin Troponin T C-Reactive Protein Total Protein Albumin Triglycerides Cholesterol LDL Cholesterol Direct HDL Cholesterol Urine WBC (Auto) Urine Creatinine Urine Total Protein Vancomycin Trough Rheumatoid Factor Complement C4 Crossmatch 10/03/16 05:10 WBC RBC Hgb Hct MCV MCH MCHC RDW Plt Count Lymph % (Auto) [place] % (Auto) Lymph # [place] # Seg Neutrophils % Seg Neuts % (Manual) Lymphocytes % (Manual) Monocytes % (Manual) Eosinophils % (Manual) Basophils % (Manual) Nucleated RBC % Seg Neutrophils # Seg Neutrophils # Man Lymphocytes # (Manual) Monocytes # (Manual) Eosinophils # (Manual) Fibrinogen dRVVT Confirm Interp Factor V Activity POC ABG pH POC ABG pCO2 POC ABG pO2 Sodium 129 L Potassium 3.3 L Chloride 88.8 L Carbon Dioxide 20 L BUN 29 H Creatinine 2.8 H Glucose POC Glucose Lactic Acid Calcium 7.2 L Phosphorus Magnesium Direct Bilirubin Troponin T C-Reactive Protein Total Protein Albumin Triglycerides Cholesterol LDL Cholesterol Direct HDL Cholesterol Urine WBC (Auto) Urine Creatinine Urine Total Protein Vancomycin Trough Rheumatoid Factor Complement C4 Crossmatch Chest x-ray: image reviewed Allied health notes reviewed: RT
--- NOTE | 2016-10-03 13:02 | Event Note ---
Date: 10/03/16 Discussed plan of care with surgeon. Will attempt to cannulate the tract of the G-tube as there is a chance that there is a fistuluous connection to stomach. This will be scheduled for tomorrow.
--- NOTE | 2016-10-03 15:27 | XRay Report ---
AP CHEST: HISTORY: PICC line placement There is rotation to the right which limits this exam. A left arm PICC terminates in the mid SVC. The right IJ venous catheter is unchanged terminating in the cavoatrial junction. Mild cardiomegaly and mild central venous congestion are suspected which are unchanged. Tracheostomy remains in good position. IMPRESSION: The left arm PICC terminates in the mid SVC.
[2016-10-03 16:20] LABS: Heparin-Induced Platelet Antib Negative (Negative); Unfractionated Heparin Negative (Negative)
[2016-10-03] MEDS: CORDARONE 900 MG in D5W 482 ML IV SCH (19:40)
[2016-10-03] MEDS ORDERED: TPN ADULT 3,000 ML IV SCH (20:00)
[2016-10-03] MEDS ORDERED: TPN ADULT 2,016 ML IV SCH (20:00)
[2016-10-03] MEDS ORDERED: INTRALIPID 20% 250 ML IV SCH (20:00)
[2016-10-03] MEDS: MYCAMINE 100 MG in NACL 0.9% 100 ML IV SCH (20:30)
[2016-10-04] MEDS: HumuLIN R SUB-Q SCH ×4 (00:11→18:38)
[2016-10-04] MEDS: VANCOMYCIN PO FEEDTUBE SCH ×4 (00:12→18:00)
[2016-10-04] MEDS: FLAGYL 500 MG/100 ML 500 MG/100 ML BAG IV SCH ×3 (00:12→18:40)
[2016-10-04 06:44] LABS: Hematocrit 21.7 % (30.3-42.9); Hemoglobin 7.1 gm/dl (10.1-14.3); Mean Corpuscular HGB Conc 33 % (30-34); Mean Corpuscular Hemoglobin 28 pg (28-32); Mean Corpuscular Volume 86 fl (79-97); Red Blood Count 2.54 M/mm3 (3.65-5.03); Red Cell Distribution Width 19.5 % (13.2-15.2)
[2016-10-04 06:46] LABS: Platelet Count 76 K/mm3 (140-440)
[2016-10-04 07:12] LABS: BUN/Creatinine Ratio 11.72; Calcium 7.4 mg/dL (8.4-10.2)
--- NOTE | 2016-10-04 08:02 | Progress Note ---
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 * Acute hypoxic respiratory failure * Accelerated hypertension * Left renal artery stenosis * Metabolic acidosis w/ respiratory compensation * Hyponatremia - resolved * pAfib Plan: * Na noted, mix amiodarone on ns * Pressors prn MAP>65 * dialysis prn * Rate control per cardiology * Transfusion of pRBC per primary team * Abx/antifungal per ID * Vent management per critical care * Dose medications for renal function * Avoid potential nephrotoxins Subjective Date of service: 10/04/16 Principal diagnosis: Acute resp failure on MVS; S/P Acute CVA; Acute Encephalopathy; JUANITA Interval history: no new event Objective - Exam Narrative Exam: Gen. appearance: Patient lying in bed, no apparent distress, 4. restraints HEENT: Normocephalic, atraumatic, pupils equally round and reactive to light, extraocular movement intact, and no sclericterus,. No JVD or thyromegaly or nodule,neck supple, no carotid bruit ,mucous membranes moist, unable to examine oral cavity Heart: S1, S2, regular rate and rhythm Lungs: Clear to auscultation bilaterally, breathing comfortable Abdomen: Positive bowel sounds, nontender, nondistended, no organomegaly Extremity: No edema, cyanosis, clubbing Skin: No rash, nodules, warm, dry Neuro: Difficult to assess, facial droop, moves all 4 extremities - Vital Signs Vital signs: Vital Signs - 12hr 10/03/16 10/03/16 10/03/16 20:31 21:01 21:31 Temperature Pulse Rate 107 H 105 H 104 H Respiratory 25 H 26 H 28 H Rate Blood Pressure 90/60 103/64 103/64 O2 Sat by Pulse 100 100 100 Oximetry O2 Sat by Pulse Oximetry [ Assessment] 10/03/16 10/03/16 10/03/16 22:00 22:31 22:42 Temperature Pulse Rate 104 H 114 H 105 H Respiratory 26 H 16 25 H Rate Blood Pressure 109/71 109/71 109/71 O2 Sat by Pulse 100 100 100 Oximetry O2 Sat by Pulse Oximetry [ Assessment] 10/03/16 10/03/16 10/03/16 23:00 23:30 23:31 Temperature Pulse Rate 100 H 103 H 112 H Respiratory 26 H 27 H Rate Blood Pressure 108/57 108/57 108/57 O2 Sat by Pulse 100 100 100 Oximetry O2 Sat by Pulse Oximetry [ Assessment] 10/03/16 10/03/16 10/04/16 23:33 23:57 00:00 Temperature 99 F Pulse Rate 99 H Respiratory 25 H Rate Blood Pressure 129/77 O2 Sat by Pulse 100 Oximetry O2 Sat by Pulse 100 Oximetry [ Assessment] 10/04/16 10/04/16 10/04/16 00:31 00:33 01:00 Temperature Pulse Rate 95 H 95 H Respiratory 25 H 24 Rate Blood Pressure 129/77 139/74 O2 Sat by Pulse 100 99 100 Oximetry O2 Sat by Pulse Oximetry [ Assessment] 10/04/16 10/04/16 10/04/16 01:31 02:00 02:31 Temperature Pulse Rate 94 H 94 H 94 H Respiratory 25 H 19 25 H Rate Blood Pressure 139/74 137/73 137/73 O2 Sat by Pulse 100 100 100 Oximetry O2 Sat by Pulse Oximetry [ Assessment] 10/04/16 10/04/16 10/04/16 03:00 03:31 04:00 Temperature 99.2 F Pulse Rate 93 H 93 H 97 H Respiratory 25 H 24 24 Rate Blood Pressure 143/74 143/74 151/79 O2 Sat by Pulse 100 100 100 Oximetry O2 Sat by Pulse Oximetry [ Assessment] 10/04/16 10/04/16 10/04/16 04:18 04:20 04:31 Temperature Pulse Rate 94 H 95 H Respiratory 21 24 Rate Blood Pressure 151/79 151/79 O2 Sat by Pulse 100 100 100 Oximetry O2 Sat by Pulse Oximetry [ Assessment] 10/04/16 10/04/16 10/04/16 05:00 05:31 06:00 Temperature Pulse Rate 92 H 92 H 94 H Respiratory 22 19 25 H Rate Blood Pressure 133/67 133/67 134/72 O2 Sat by Pulse 100 100 98 Oximetry O2 Sat by Pulse Oximetry [ Assessment] 10/04/16 10/04/16 06:31 07:00 Temperature Pulse Rate 109 H 107 H Respiratory 31 H 35 H Rate Blood Pressure 134/72 131/77 O2 Sat by Pulse 94 100 Oximetry O2 Sat by Pulse Oximetry [ Assessment] - Lab 10/04/16 06:30 10/04/16 06:30 Most recent lab results Calcium 7.4 mg/dL (8.4-10.2) L 10/04/16 06:30 Phosphorus 3.80 mg/dL (2.5-4.5) 10/04/16 06:30 Magnesium 1.90 mg/dL (1.7-2.3) 10/04/16 06:30 Urine Creatinine 54.8 mg/dL (0.1-20.0) H 09/21/16 12:00 Urine Sodium 36 mEq/L 09/16/16 19:19 Urine Total Protein 16 mg/dL (5-11.8) H 09/16/16 19:19
[2016-10-04 08:45] LABS: Anisocytosis 1+; Band Neutrophils # (Manual) 0.1 K/mm3; Basophils % (Manual) 0 % (0.0-1.8); Dohle Bodies 1+; Eosinophils % (Manual) 0 % (0.0-4.3); Platelet Estimate Consistent w Auto; Stomatocytes 1+; Total Cells Counted 100
[2016-10-04] MEDS ORDERED: CORDARONE 900 MG in NACL 0.9% 500 ML 482 ML IV SCH (09:00)
[2016-10-04] MEDS: PROTONIX IV SCH ×2 (10:00→21:45)
--- NOTE | 2016-10-04 11:16 | Progress Note ---
Assessment and Plan (1) Acute respiratory failure with hypoxia Current Visit: Yes Status: Acute Plan to address problem: - continue aspiration precautions / address VAP bundles - continue to wean oxygen for MAP > 94% - continue bronchodilators and pulmonary toilet - tapered off systemic steroids (no active needs pulmonary-[place]) - s/p tracheostomy - placed back on AC mode after review of ABG and secondary to increased work of breathing - continue daily PSV trials as tolerated (tolerating well today) (2) Acute CVA (cerebrovascular accident) Current Visit: Yes Status: Acute Plan to address problem: - out of tpA window (initially stopped due to uncontrolled HTN) - Left MCA teritory stroke with some midline shift on last CT - seen by neurology and prognosis for recovery of mental status guarded to poor - optimizing secondary prevention modalities now (BP, lipid anti-platelet therapy) - off systemic steroids now (started earlier for edema) (3) Hypertensive emergency Current Visit: Yes Status: Acute Plan to address problem: - stopped all antihypertensives while septic - following cllinically (4) Obesity (BMI 35.0-39.9 without comorbidity) Current Visit: Yes Status: Chronic Plan to address problem: - nutrition consult placed for enteral formulation - follow clinically (5) Type 2 diabetes mellitus Current Visit: Yes Status: Chronic Qualifiers: Diabetes mellitus complication status: D Diabetes mellitus complication detail: D Diabetic retinopathy severity: D Proliferative retinopathy type: P Diabetes mellitus macular edema: D Diabetes mellitus care home insulin use : D Laterality: L Chronic kidney disease stage: C Plan to address problem: - continue SSI - discontinued lantus re: hypoglycemia (6) Leukocytosis (leucocytosis) Current Visit: Yes Status: Acute Qualifiers: Leukocytosis type: leukemoid reaction Qualified Code(s): D72.823 - Leukemoid reaction Plan to address problem: - continue cancidas and de-escalate per ID recs - clinically improved (7) Agitation Current Visit: Yes Status: Acute Plan to address problem: - prn sedation / analgesia - tapered off seroquel for now (8) Atrial fibrillation Current Visit: Yes Status: Acute Qualifiers: Atrial fibrillation type: A Plan to address problem: - failed cardioversion earlier - cardiology evaluation ongoing - on amiodarone drip - appears to have converted to sinus (9) JUANITA (acute kidney injury) Current Visit: Yes Status: Acute Plan to address problem: - on Dialysis now - s/p HD/UF yesterday - oliguric (10) Pyrexia of unknown origin Current Visit: Yes Status: Acute Plan to address problem: - will get dopplers as part of a PUO work-up to r/o VTE - continue to treat with AB;'s empirically - continue micafungin (11) Severe sepsis Current Visit: Yes Status: Acute Plan to address problem: - continue AB's and follow cultures - resume vasopressors for MAP < 60mmHg not responsive to volume - continue micafungin - all central vascular access has been discontinued after fungemia reported - care plan formulated with ID input - vascath and PICC pulled with new RIJ placed (trialysis catheter apparently) - clinically much better and again weaning off levophed (12) Emesis Current Visit: Yes Status: Acute Qualifiers: Vomiting type: V Vomiting Intractability: V Nausea presence: N Plan to address problem: - continue PEG to LIS - stopped reglan - apparently G-tube may not be in stomach - IR evaluation ongoing - tentatively for G-J tube placement today (13) Discharge planning issues Current Visit: Yes Status: Acute Plan to address problem: - she remains critically ill on life sustaining interventions including MVS and at risk for further acute deterioration including .....30' CCT ....care home prognosis is guarded Subjective Date of service: 10/04/16 Principal diagnosis: Acute resp failure on MVS; S/P Acute CVA; Acute Encephalopathy; JUANITA Interval history: Seen and examined at bedside; 24 hour events reviewed; nursing and respiratory care staff consulted; no adverse overnight events reported to me; remains on MVS ; not weaning well today; dialysis ongoing; tentatively to IR for G-J tube placement thereafter; AMS is persistent Objective Vital Signs - 12hr 10/03/16 10/03/16 10/03/16 23:30 23:31 23:33 Temperature Pulse Rate 103 H 112 H Respiratory 27 H Rate Blood Pressure 108/57 108/57 O2 Sat by Pulse 100 100 Oximetry O2 Sat by Pulse 100 Oximetry [ Assessment] 10/03/16 10/04/16 10/04/16 23:57 00:00 00:31 Temperature 99 F Pulse Rate 99 H 95 H Respiratory 25 H 25 H Rate Blood Pressure 129/77 129/77 O2 Sat by Pulse 100 100 Oximetry O2 Sat by Pulse Oximetry [ Assessment] 10/04/16 10/04/16 10/04/16 00:33 01:00 01:31 Temperature Pulse Rate 95 H 94 H Respiratory 24 25 H Rate Blood Pressure 139/74 139/74 O2 Sat by Pulse 99 100 100 Oximetry O2 Sat by Pulse Oximetry [ Assessment] 10/04/16 10/04/16 10/04/16 02:00 02:31 03:00 Temperature Pulse Rate 94 H 94 H 93 H Respiratory 19 25 H 25 H Rate Blood Pressure 137/73 137/73 143/74 O2 Sat by Pulse 100 100 100 Oximetry O2 Sat by Pulse Oximetry [ Assessment] 10/04/16 10/04/16 10/04/16 03:31 04:00 04:18 Temperature 99.2 F Pulse Rate 93 H 97 H 94 H Respiratory 24 24 Rate Blood Pressure 143/74 151/79 151/79 O2 Sat by Pulse 100 100 100 Oximetry O2 Sat by Pulse Oximetry [ Assessment] 10/04/16 10/04/16 10/04/16 04:20 04:31 05:00 Temperature Pulse Rate 95 H 92 H Respiratory 21 24 22 Rate Blood Pressure 151/79 133/67 O2 Sat by Pulse 100 100 100 Oximetry O2 Sat by Pulse Oximetry [ Assessment] 10/04/16 10/04/16 10/04/16 05:31 06:00 06:31 Temperature Pulse Rate 92 H 94 H 109 H Respiratory 19 25 H 31 H Rate Blood Pressure 133/67 134/72 134/72 O2 Sat by Pulse 100 98 94 Oximetry O2 Sat by Pulse Oximetry [ Assessment] 10/04/16 10/04/16 10/04/16 07:00 07:31 08:00 Temperature 98 F Pulse Rate 107 H 93 H 96 H Respiratory 35 H 31 H 30 H Rate Blood Pressure 131/77 131/77 129/70 O2 Sat by Pulse 100 98 100 Oximetry O2 Sat by Pulse Oximetry [ Assessment] 10/04/16 08:26 Temperature Pulse Rate 97 H Respiratory Rate Blood Pressure 129/70 O2 Sat by Pulse 100 Oximetry O2 Sat by Pulse Oximetry [ Assessment] Constitutional: no acute distress, other (encephalopathic; off sedation now) Eyes: non-icteric, other (tracheostomy tube in midline of neck) ENT: oropharynx moist Neck: supple, no lymphadenopathy Effort: mildly labored Ascultation: Bilateral: clear, diminished breath sounds, rales, rhonchi (bases) Cardiovascular: regular rate and rhythm Gastrointestinal: hypoactive bowel sounds, soft, non-tender, non-distended Integumentary: normal Extremities: no cyanosis, no edema, pulses normal, no ischemia or petechiae Neurologic: pupils equal and round, other (sedated) Psychiatric: other (unable to assess) CBC and BMP: 10/05/16 05:00 10/05/16 05:00 ABG, PT/INR, D-dimer: ABG POC ABG pH 7.461 (7.35-7.45) H 10/04/16 04:18 POC ABG pCO2 33.6 (35-45) L 10/04/16 04:18 POC ABG pO2 211 (80-105) H 10/04/16 04:18 POC ABG HCO3 24.0 10/04/16 04:18 POC ABG Total CO2 25 10/04/16 04:18 POC ABG O2 Sat 100 10/04/16 04:18 PT/INR, D-dimer PT 13.8 Sec. (12.2-14.9) 09/15/16 05:00 INR 1.01 (0.87-1.13) 09/15/16 05:00 Abnormal lab findings: Abnormal Labs 09/03/16 09/03/16 09/03/16 12:12 15:07 16:20 WBC RBC Hgb Hct MCV MCH MCHC RDW Plt Count Lymph % (Auto) [place] % (Auto) Lymph # [place] # Seg Neutrophils % Seg Neuts % (Manual) Lymphocytes % (Manual) Monocytes % (Manual) Eosinophils % (Manual) Basophils % (Manual) Nucleated RBC % Seg Neutrophils # Seg Neutrophils # Man Lymphocytes # (Manual) Monocytes # (Manual) Eosinophils # (Manual) Fibrinogen dRVVT Confirm Interp Factor V Activity POC ABG pH 7.452 H POC ABG pCO2 POC ABG pO2 Sodium Potassium Chloride Carbon Dioxide BUN Creatinine Glucose POC Glucose 178 H Lactic Acid Calcium Phosphorus 2.20 L Magnesium 1.60 L Direct Bilirubin Troponin T C-Reactive Protein Total Protein Albumin Triglycerides Cholesterol LDL Cholesterol Direct HDL Cholesterol Urine WBC (Auto) Urine Creatinine Urine Total Protein Vancomycin Trough Rheumatoid Factor Complement C4 Crossmatch 09/03/16 09/03/16 09/03/16 17:57 17:58 23:50 WBC RBC Hgb Hct MCV MCH MCHC RDW Plt Count Lymph % (Auto) [place] % (Auto) Lymph # [place] # Seg Neutrophils % Seg Neuts % (Manual) Lymphocytes % (Manual) Monocytes % (Manual) Eosinophils % (Manual) Basophils % (Manual) Nucleated RBC % Seg Neutrophils # Seg Neutrophils # Man Lymphocytes # (Manual) Monocytes # (Manual) Eosinophils # (Manual) Fibrinogen dRVVT Confirm Interp Factor V Activity POC ABG pH POC ABG pCO2 POC ABG pO2 Sodium Potassium Chloride Carbon Dioxide BUN Creatinine Glucose POC Glucose 162 H 145 H Lactic Acid Calcium Phosphorus 2.30 L Magnesium Direct Bilirubin Troponin T C-Reactive Protein Total Protein Albumin Triglycerides Cholesterol LDL Cholesterol Direct HDL Cholesterol Urine WBC (Auto) Urine Creatinine Urine Total Protein Vancomycin Trough Rheumatoid Factor Complement C4 Crossmatch 09/04/16 09/04/16 09/04/16 03:31 03:31 05:42 WBC RBC Hgb 9.7 L D Hct MCV 72 L MCH 23 L MCHC RDW 17.5 H Plt Count Lymph % (Auto) 11.1 L [place] % (Auto) Lymph # [place] # Seg Neutrophils % 84.3 H Seg Neuts % (Manual) Lymphocytes % (Manual) Monocytes % (Manual) Eosinophils % (Manual) Basophils % (Manual) Nucleated RBC % Seg Neutrophils # 8.9 H Seg Neutrophils # Man Lymphocytes # (Manual) Monocytes # (Manual) Eosinophils # (Manual) Fibrinogen dRVVT Confirm Interp Factor V Activity POC ABG pH POC ABG pCO2 POC ABG pO2 Sodium 135 L Potassium 2.9 L* Chloride 97.2 L Carbon Dioxide 19 L BUN Creatinine 1.7 H Glucose 170 H POC Glucose 152 H Lactic Acid Calcium Phosphorus Magnesium Direct Bilirubin Troponin T C-Reactive Protein Total Protein Albumin Triglycerides 160 H Cholesterol LDL Cholesterol Direct HDL Cholesterol 31 L Urine WBC (Auto) Urine Creatinine Urine Total Protein Vancomycin Trough Rheumatoid Factor Complement C4 Crossmatch 09/04/16 09/04/16 09/04/16 11:34 17:46 23:29 WBC RBC Hgb Hct MCV MCH MCHC RDW Plt Count Lymph % (Auto) [place] % (Auto) Lymph # [place] # Seg Neutrophils % Seg Neuts % (Manual) Lymphocytes % (Manual) Monocytes % (Manual) Eosinophils % (Manual) Basophils % (Manual) Nucleated RBC % Seg Neutrophils # Seg Neutrophils # Man Lymphocytes # (Manual) Monocytes # (Manual) Eosinophils # (Manual) Fibrinogen dRVVT Confirm Interp Factor V Activity POC ABG pH POC ABG pCO2 POC ABG pO2 Sodium Potassium Chloride Carbon Dioxide BUN Creatinine Glucose POC Glucose 165 H 210 H 139 H Lactic Acid Calcium Phosphorus Magnesium Direct Bilirubin Troponin T C-Reactive Protein Total Protein Albumin Triglycerides Cholesterol LDL Cholesterol Direct HDL Cholesterol Urine WBC (Auto) Urine Creatinine Urine Total Protein Vancomycin Trough Rheumatoid Factor Complement C4 Crossmatch 09/05/16 09/05/16 09/05/16 04:05 04:05 05:38 WBC RBC Hgb Hct MCV 76 L D MCH 23 L MCHC RDW 17.8 H Plt Count Lymph % (Auto) [place] % (Auto) Lymph # [place] # Seg Neutrophils % Seg Neuts % (Manual) Lymphocytes % (Manual) Monocytes % (Manual) Eosinophils % (Manual) Basophils % (Manual) Nucleated RBC % Seg Neutrophils # Seg Neutrophils # Man Lymphocytes # (Manual) Monocytes # (Manual) Eosinophils # (Manual) Fibrinogen dRVVT Confirm Interp Factor V Activity POC ABG pH POC ABG pCO2 POC ABG pO2 Sodium 134 L Potassium Chloride Carbon Dioxide 18 L BUN Creatinine 1.8 H Glucose 192 H POC Glucose 175 H Lactic Acid Calcium Phosphorus Magnesium Direct Bilirubin Troponin T C-Reactive Protein Total Protein Albumin Triglycerides Cholesterol LDL Cholesterol Direct HDL Cholesterol Urine WBC (Auto) Urine Creatinine Urine Total Protein Vancomycin Trough Rheumatoid Factor Complement C4 Crossmatch 09/05/16 09/05/16 09/05/16 11:38 17:48 23:22 WBC RBC Hgb Hct MCV MCH MCHC RDW Plt Count Lymph % (Auto) [place] % (Auto) Lymph # [place] # Seg Neutrophils % Seg Neuts % (Manual) Lymphocytes % (Manual) Monocytes % (Manual) Eosinophils % (Manual) Basophils % (Manual) Nucleated RBC % Seg Neutrophils # Seg Neutrophils # Man Lymphocytes # (Manual) Monocytes # (Manual) Eosinophils # (Manual) Fibrinogen dRVVT Confirm Interp Factor V Activity POC ABG pH POC ABG pCO2 POC ABG pO2 Sodium Potassium Chloride Carbon Dioxide BUN Creatinine Glucose POC Glucose 164 H 186 H 195 H Lactic Acid Calcium Phosphorus Magnesium Direct Bilirubin Troponin T C-Reactive Protein Total Protein Albumin Triglycerides Cholesterol LDL Cholesterol Direct HDL Cholesterol Urine WBC (Auto) Urine Creatinine Urine Total Protein Vancomycin Trough Rheumatoid Factor Complement C4 Crossmatch 09/06/16 09/06/16 09/06/16 04:12 05:59 07:32 WBC RBC Hgb Hct MCV MCH MCHC RDW Plt Count Lymph % (Auto) [place] % (Auto) Lymph # [place] # Seg Neutrophils % Seg Neuts % (Manual) Lymphocytes % (Manual) Monocytes % (Manual) Eosinophils % (Manual) Basophils % (Manual) Nucleated RBC % Seg Neutrophils # Seg Neutrophils # Man Lymphocytes # (Manual) Monocytes # (Manual) Eosinophils # (Manual) Fibrinogen dRVVT Confirm Interp Factor V Activity POC ABG pH 7.514 H POC ABG pCO2 29.1 L POC ABG pO2 72 L Sodium 133 L Potassium 3.4 L Chloride 94.9 L Carbon Dioxide 19 L BUN 30 H Creatinine 2.1 H Glucose 139 H POC Glucose 146 H Lactic Acid Calcium Phosphorus Magnesium Direct Bilirubin Troponin T C-Reactive Protein Total Protein Albumin Triglycerides Cholesterol LDL Cholesterol Direct HDL Cholesterol Urine WBC (Auto) Urine Creatinine Urine Total Protein Vancomycin Trough Rheumatoid Factor Complement C4 Crossmatch 09/06/16 09/06/16 09/06/16 11:57 17:58 19:02 WBC RBC Hgb Hct MCV MCH MCHC RDW Plt Count Lymph % (Auto) [place] % (Auto) Lymph # [place] # Seg Neutrophils % Seg Neuts % (Manual) Lymphocytes % (Manual) Monocytes % (Manual) Eosinophils % (Manual) Basophils % (Manual) Nucleated RBC % Seg Neutrophils # Seg Neutrophils # Man Lymphocytes # (Manual) Monocytes # (Manual) Eosinophils # (Manual) Fibrinogen dRVVT Confirm Interp Factor V Activity POC ABG pH 7.465 H POC ABG pCO2 32.0 L POC ABG pO2 Sodium Potassium Chloride Carbon Dioxide BUN Creatinine Glucose POC Glucose 165 H 160 H Lactic Acid Calcium Phosphorus Magnesium Direct Bilirubin Troponin T C-Reactive Protein Total Protein Albumin Triglycerides Cholesterol LDL Cholesterol Direct HDL Cholesterol Urine WBC (Auto) Urine Creatinine Urine Total Protein Vancomycin Trough Rheumatoid Factor Complement C4 Crossmatch 09/06/16 09/07/16 09/07/16 23:45 02:47 02:47 WBC RBC Hgb Hct MCV MCH MCHC RDW Plt Count Lymph % (Auto) [place] % (Auto) Lymph # [place] # Seg Neutrophils % Seg Neuts % (Manual) Lymphocytes % (Manual) Monocytes % (Manual) Eosinophils % (Manual) Basophils % (Manual) Nucleated RBC % Seg Neutrophils # Seg Neutrophils # Man Lymphocytes # (Manual) Monocytes # (Manual) Eosinophils # (Manual) Fibrinogen dRVVT Confirm Interp Factor V Activity POC ABG pH POC ABG pCO2 POC ABG pO2 Sodium Potassium Chloride Carbon Dioxide BUN Creatinine Glucose POC Glucose 204 H Lactic Acid Calcium Phosphorus Magnesium Direct Bilirubin Troponin T C-Reactive Protein Total Protein Albumin Triglycerides Cholesterol LDL Cholesterol Direct HDL Cholesterol Urine WBC (Auto) 68.0 H Urine Creatinine 106.1 H Urine Total Protein Vancomycin Trough Rheumatoid Factor Complement C4 Crossmatch 09/07/16 09/07/16 09/07/16 04:50 06:19 06:39 WBC RBC Hgb Hct MCV MCH MCHC RDW Plt Count Lymph % (Auto) [place] % (Auto) Lymph # [place] # Seg Neutrophils % Seg Neuts % (Manual) Lymphocytes % (Manual) Monocytes % (Manual) Eosinophils % (Manual) Basophils % (Manual) Nucleated RBC % Seg Neutrophils # Seg Neutrophils # Man Lymphocytes # (Manual) Monocytes # (Manual) Eosinophils # (Manual) Fibrinogen dRVVT Confirm Interp Factor V Activity POC ABG pH 7.457 H POC ABG pCO2 32.1 L POC ABG pO2 76 L Sodium 132 L Potassium Chloride 94.7 L Carbon Dioxide BUN 53 H Creatinine 2.9 H Glucose 151 H POC Glucose 149 H Lactic Acid Calcium Phosphorus Magnesium Direct Bilirubin Troponin T C-Reactive Protein Total Protein Albumin Triglycerides Cholesterol LDL Cholesterol Direct HDL Cholesterol Urine WBC (Auto) Urine Creatinine Urine Total Protein Vancomycin Trough Rheumatoid Factor Complement C4 Crossmatch 09/07/16 09/07/16 09/07/16 09:20 11:43 11:43 WBC 19.4 H RBC Hgb 8.3 L Hct 26.4 L D MCV 72 L D MCH 22 L MCHC RDW 17.9 H Plt Count Lymph % (Auto) 8.5 L [place] % (Auto) Lymph # [place] # 1.0 H Seg Neutrophils % 85.8 H Seg Neuts % (Manual) Lymphocytes % (Manual) Monocytes % (Manual) Eosinophils % (Manual) Basophils % (Manual) Nucleated RBC % Seg Neutrophils # 16.6 H Seg Neutrophils # Man Lymphocytes # (Manual) Monocytes # (Manual) Eosinophils # (Manual) Fibrinogen dRVVT Confirm Interp Factor V Activity POC ABG pH POC ABG pCO2 POC ABG pO2 Sodium 134 L Potassium Chloride 97.2 L Carbon Dioxide 20 L BUN 58 H Creatinine 2.9 H Glucose 147 H POC Glucose Lactic Acid Calcium Phosphorus 2.40 L Magnesium 2.40 H Direct Bilirubin Troponin T C-Reactive Protein Total Protein 5.8 L Albumin 2.2 L Triglycerides Cholesterol LDL Cholesterol Direct HDL Cholesterol Urine WBC (Auto) Urine Creatinine Urine Total Protein Vancomycin Trough Rheumatoid Factor Complement C4 58 H Crossmatch 09/07/16 09/07/16 09/07/16 11:50 16:00 17:31 WBC RBC Hgb Hct MCV MCH MCHC RDW Plt Count Lymph % (Auto) [place] % (Auto) Lymph # [place] # Seg Neutrophils % Seg Neuts % (Manual) Lymphocytes % (Manual) Monocytes % (Manual) Eosinophils % (Manual) Basophils % (Manual) Nucleated RBC % Seg Neutrophils # Seg Neutrophils # Man Lymphocytes # (Manual) Monocytes # (Manual) Eosinophils # (Manual) Fibrinogen dRVVT Confirm Interp Factor V Activity POC ABG pH POC ABG pCO2 POC ABG pO2 158 H Sodium Potassium Chloride Carbon Dioxide BUN Creatinine Glucose POC Glucose 175 H Lactic Acid Calcium Phosphorus Magnesium Direct Bilirubin Troponin T C-Reactive Protein Total Protein Albumin Triglycerides Cholesterol LDL Cholesterol Direct HDL Cholesterol Urine WBC (Auto) Urine Creatinine 66.3 H Urine Total Protein Vancomycin Trough Rheumatoid Factor Complement C4 Crossmatch 09/07/16 09/08/16 09/08/16 23:50 05:46 06:18 WBC 17.8 H RBC 3.58 L Hgb 8.1 L Hct 25.5 L MCV 71 L MCH 23 L MCHC RDW 18.4 H Plt Count Lymph % (Auto) [place] % (Auto) Lymph # [place] # Seg Neutrophils % Seg Neuts % (Manual) 92.0 H Lymphocytes % (Manual) 6.0 L Monocytes % (Manual) Eosinophils % (Manual) Basophils % (Manual) Nucleated RBC % Seg Neutrophils # Seg Neutrophils # Man 16.4 H Lymphocytes # (Manual) 1.1 L Monocytes # (Manual) Eosinophils # (Manual) Fibrinogen dRVVT Confirm Interp Factor V Activity POC ABG pH POC ABG pCO2 34.3 L POC ABG pO2 71 L Sodium Potassium Chloride Carbon Dioxide BUN Creatinine Glucose POC Glucose 216 H Lactic Acid Calcium Phosphorus Magnesium Direct Bilirubin Troponin T C-Reactive Protein Total Protein Albumin Triglycerides Cholesterol LDL Cholesterol Direct HDL Cholesterol Urine WBC (Auto) Urine Creatinine Urine Total Protein Vancomycin Trough Rheumatoid Factor Complement C4 Crossmatch 09/08/16 09/08/16 09/08/16 06:18 06:51 10:55 WBC RBC Hgb Hct MCV MCH MCHC RDW Plt Count Lymph % (Auto) [place] % (Auto) Lymph # [place] # Seg Neutrophils % Seg Neuts % (Manual) Lymphocytes % (Manual) Monocytes % (Manual) Eosinophils % (Manual) Basophils % (Manual) Nucleated RBC % Seg Neutrophils # Seg Neutrophils # Man Lymphocytes # (Manual) Monocytes # (Manual) Eosinophils # (Manual) Fibrinogen dRVVT Confirm Interp Factor V Activity POC ABG pH POC ABG pCO2 POC ABG pO2 Sodium 133 L Potassium Chloride 96.9 L Carbon Dioxide 20 L BUN 63 H Creatinine 2.7 H Glucose 195 H POC Glucose 204 H 169 H Lactic Acid Calcium Phosphorus Magnesium Direct Bilirubin Troponin T C-Reactive Protein Total Protein Albumin Triglycerides Cholesterol LDL Cholesterol Direct HDL Cholesterol Urine WBC (Auto) Urine Creatinine Urine Total Protein Vancomycin Trough Rheumatoid Factor Complement C4 Crossmatch 09/08/16 09/08/16 09/08/16 11:48 11:48 11:48 WBC RBC Hgb Hct MCV MCH MCHC RDW Plt Count Lymph % (Auto) [place] % (Auto) Lymph # [place] # Seg Neutrophils % Seg Neuts % (Manual) Lymphocytes % (Manual) Monocytes % (Manual) Eosinophils % (Manual) Basophils % (Manual) Nucleated RBC % Seg Neutrophils # Seg Neutrophils # Man Lymphocytes # (Manual) Monocytes # (Manual) Eosinophils # (Manual) Fibrinogen 750 H dRVVT Confirm Interp Factor V Activity POC ABG pH POC ABG pCO2 POC ABG pO2 Sodium Potassium Chloride Carbon Dioxide BUN Creatinine Glucose POC Glucose Lactic Acid Calcium Phosphorus Magnesium Direct Bilirubin Troponin T C-Reactive Protein 15.70 H Total Protein Albumin Triglycerides Cholesterol LDL Cholesterol Direct HDL Cholesterol Urine WBC (Auto) Urine Creatinine Urine Total Protein Vancomycin Trough Rheumatoid Factor 24 H Complement C4 Crossmatch 09/08/16 09/08/16 09/09/16 15:35 18:25 00:24 WBC RBC Hgb Hct MCV MCH MCHC RDW Plt Count Lymph % (Auto) [place] % (Auto) Lymph # [place] # Seg Neutrophils % Seg Neuts % (Manual) Lymphocytes % (Manual) Monocytes % (Manual) Eosinophils % (Manual) Basophils % (Manual) Nucleated RBC % Seg Neutrophils # Seg Neutrophils # Man Lymphocytes # (Manual) Monocytes # (Manual) Eosinophils # (Manual) Fibrinogen dRVVT Confirm Interp Factor V Activity 182 H POC ABG pH POC ABG pCO2 POC ABG pO2 Sodium Potassium Chloride Carbon Dioxide BUN Creatinine Glucose POC Glucose 184 H 216 H Lactic Acid Calcium Phosphorus Magnesium Direct Bilirubin Troponin T C-Reactive Protein Total Protein Albumin Triglycerides Cholesterol LDL Cholesterol Direct HDL Cholesterol Urine WBC (Auto) Urine Creatinine Urine Total Protein Vancomycin Trough Rheumatoid Factor Complement C4 Crossmatch 09/09/16 09/09/16 09/09/16 03:00 03:00 04:04 WBC 27.9 H RBC Hgb 8.7 L Hct 28.1 L MCV 72 L MCH 22 L MCHC RDW 18.4 H Plt Count 485 H Lymph % (Auto) [place] % (Auto) Lymph # [place] # Seg Neutrophils % Seg Neuts % (Manual) 77.0 H Lymphocytes % (Manual) 9.0 L Monocytes % (Manual) Eosinophils % (Manual) Basophils % (Manual) Nucleated RBC % Seg Neutrophils # Seg Neutrophils # Man 21.5 H Lymphocytes # (Manual) Monocytes # (Manual) 2.0 H Eosinophils # (Manual) Fibrinogen dRVVT Confirm Interp Factor V Activity POC ABG pH POC ABG pCO2 POC ABG pO2 121 H Sodium 135 L Potassium Chloride 96.3 L Carbon Dioxide 21 L BUN 83 H Creatinine 3.0 H Glucose 135 H POC Glucose Lactic Acid Calcium Phosphorus Magnesium Direct Bilirubin Troponin T C-Reactive Protein Total Protein Albumin Triglycerides Cholesterol LDL Cholesterol Direct HDL Cholesterol Urine WBC (Auto) Urine Creatinine Urine Total Protein Vancomycin Trough Rheumatoid Factor Complement C4 Crossmatch 09/09/16 09/09/16 09/09/16 05:41 11:55 14:13 WBC RBC Hgb Hct MCV MCH MCHC RDW Plt Count Lymph % (Auto) [place] % (Auto) Lymph # [place] # Seg Neutrophils % Seg Neuts % (Manual) Lymphocytes % (Manual) Monocytes % (Manual) Eosinophils % (Manual) Basophils % (Manual) Nucleated RBC % Seg Neutrophils # Seg Neutrophils # Man Lymphocytes # (Manual) Monocytes # (Manual) Eosinophils # (Manual) Fibrinogen dRVVT Confirm Interp Factor V Activity POC ABG pH POC ABG pCO2 POC ABG pO2 Sodium Potassium Chloride Carbon Dioxide BUN Creatinine Glucose POC Glucose 155 H 186 H Lactic Acid Calcium Phosphorus Magnesium Direct Bilirubin Troponin T C-Reactive Protein Total Protein Albumin Triglycerides Cholesterol LDL Cholesterol Direct HDL Cholesterol Urine WBC (Auto) 25.0 H Urine Creatinine Urine Total Protein Vancomycin Trough Rheumatoid Factor Complement C4 Crossmatch 09/09/16 09/09/16 09/10/16 17:33 23:13 05:09 WBC RBC Hgb Hct MCV MCH MCHC RDW Plt Count Lymph % (Auto) [place] % (Auto) Lymph # [place] # Seg Neutrophils % Seg Neuts % (Manual) Lymphocytes % (Manual) Monocytes % (Manual) Eosinophils % (Manual) Basophils % (Manual) Nucleated RBC % Seg Neutrophils # Seg Neutrophils # Man Lymphocytes # (Manual) Monocytes # (Manual) Eosinophils # (Manual) Fibrinogen dRVVT Confirm Interp Factor V Activity POC ABG pH POC ABG pCO2 POC ABG pO2 74 L Sodium Potassium Chloride Carbon Dioxide BUN Creatinine Glucose POC Glucose 211 H 215 H Lactic Acid Calcium Phosphorus Magnesium Direct Bilirubin Troponin T C-Reactive Protein Total Protein Albumin Triglycerides Cholesterol LDL Cholesterol Direct HDL Cholesterol Urine WBC (Auto) Urine Creatinine Urine Total Protein Vancomycin Trough Rheumatoid Factor Complement C4 Crossmatch 09/10/16 09/10/16 09/10/16 05:17 05:17 11:31 WBC 15.8 H RBC 3.25 L Hgb 7.3 L Hct 22.9 L MCV 71 L MCH 23 L MCHC RDW 18.4 H Plt Count Lymph % (Auto) [place] % (Auto) Lymph # [place] # Seg Neutrophils % Seg Neuts % (Manual) 91.0 H Lymphocytes % (Manual) 4.0 L Monocytes % (Manual) Eosinophils % (Manual) Basophils % (Manual) Nucleated RBC % Seg Neutrophils # Seg Neutrophils # Man 14.4 H Lymphocytes # (Manual) 0.6 L Monocytes # (Manual) Eosinophils # (Manual) Fibrinogen dRVVT Confirm Interp Factor V Activity POC ABG pH POC ABG pCO2 POC ABG pO2 Sodium Potassium Chloride Carbon Dioxide 21 L BUN 93 H Creatinine 2.9 H Glucose 146 H POC Glucose 188 H Lactic Acid Calcium 8.1 L Phosphorus Magnesium Direct Bilirubin Troponin T C-Reactive Protein Total Protein Albumin Triglycerides Cholesterol LDL Cholesterol Direct HDL Cholesterol Urine WBC (Auto) Urine Creatinine Urine Total Protein Vancomycin Trough Rheumatoid Factor Complement C4 Crossmatch 09/10/16 09/10/16 09/10/16 13:17 17:20 23:32 WBC RBC Hgb Hct MCV MCH MCHC RDW Plt Count Lymph % (Auto) [place] % (Auto) Lymph # [place] # Seg Neutrophils % Seg Neuts % (Manual) Lymphocytes % (Manual) Monocytes % (Manual) Eosinophils % (Manual) Basophils % (Manual) Nucleated RBC % Seg Neutrophils # Seg Neutrophils # Man Lymphocytes # (Manual) Monocytes # (Manual) Eosinophils # (Manual) Fibrinogen dRVVT Confirm Interp Factor V Activity POC ABG pH POC ABG pCO2 POC ABG pO2 Sodium Potassium Chloride Carbon Dioxide BUN Creatinine Glucose POC Glucose 199 H 186 H Lactic Acid Calcium Phosphorus Magnesium Direct Bilirubin Troponin T C-Reactive Protein Total Protein Albumin Triglycerides Cholesterol LDL Cholesterol Direct HDL Cholesterol Urine WBC (Auto) Urine Creatinine Urine Total Protein Vancomycin Trough Rheumatoid Factor Complement C4 Crossmatch See Detail 09/11/16 09/11/16 09/11/16 05:10 05:10 05:17 WBC 28.4 H RBC Hgb 9.2 L Hct 29.3 L D MCV 73 L MCH 23 L MCHC RDW 18.9 H Plt Count 452 H Lymph % (Auto) [place] % (Auto) Lymph # [place] # Seg Neutrophils % Seg Neuts % (Manual) 89.5 H Lymphocytes % (Manual) 2.0 L Monocytes % (Manual) Eosinophils % (Manual) Basophils % (Manual) Nucleated RBC % Seg Neutrophils # Seg Neutrophils # Man 25.4 H Lymphocytes # (Manual) 0.6 L Monocytes # (Manual) 1.3 H Eosinophils # (Manual) Fibrinogen dRVVT Confirm Interp Factor V Activity POC ABG pH POC ABG pCO2 POC ABG pO2 Sodium 136 L Potassium Chloride Carbon Dioxide 18 L BUN 107 H Creatinine 2.6 H Glucose 187 H POC Glucose 230 H Lactic Acid Calcium 8.3 L Phosphorus Magnesium Direct Bilirubin Troponin T C-Reactive Protein Total Protein Albumin Triglycerides Cholesterol LDL Cholesterol Direct HDL Cholesterol Urine WBC (Auto) Urine Creatinine Urine Total Protein Vancomycin Trough Rheumatoid Factor Complement C4 Crossmatch 09/11/16 09/11/16 09/11/16 05:55 12:02 17:32 WBC RBC Hgb Hct MCV MCH MCHC RDW Plt Count Lymph % (Auto) [place] % (Auto) Lymph # [place] # Seg Neutrophils % Seg Neuts % (Manual) Lymphocytes % (Manual) Monocytes % (Manual) Eosinophils % (Manual) Basophils % (Manual) Nucleated RBC % Seg Neutrophils # Seg Neutrophils # Man Lymphocytes # (Manual) Monocytes # (Manual) Eosinophils # (Manual) Fibrinogen dRVVT Confirm Interp Factor V Activity POC ABG pH POC ABG pCO2 33.8 L POC ABG pO2 Sodium Potassium Chloride Carbon Dioxide BUN Creatinine Glucose POC Glucose 191 H 239 H Lactic Acid Calcium Phosphorus Magnesium Direct Bilirubin Troponin T C-Reactive Protein Total Protein Albumin Triglycerides Cholesterol LDL Cholesterol Direct HDL Cholesterol Urine WBC (Auto) Urine Creatinine Urine Total Protein Vancomycin Trough Rheumatoid Factor Complement C4 Crossmatch 09/11/16 09/12/16 09/12/16 23:52 05:09 05:32 WBC RBC Hgb Hct MCV MCH MCHC RDW Plt Count Lymph % (Auto) [place] % (Auto) Lymph # [place] # Seg Neutrophils % Seg Neuts % (Manual) Lymphocytes % (Manual) Monocytes % (Manual) Eosinophils % (Manual) Basophils % (Manual) Nucleated RBC % Seg Neutrophils # Seg Neutrophils # Man Lymphocytes # (Manual) Monocytes # (Manual) Eosinophils # (Manual) Fibrinogen dRVVT Confirm Interp Factor V Activity POC ABG pH POC ABG pCO2 34.6 L POC ABG pO2 Sodium Potassium Chloride Carbon Dioxide BUN Creatinine Glucose POC Glucose 265 H 184 H Lactic Acid Calcium Phosphorus Magnesium Direct Bilirubin Troponin T C-Reactive Protein Total Protein Albumin Triglycerides Cholesterol LDL Cholesterol Direct HDL Cholesterol Urine WBC (Auto) Urine Creatinine Urine Total Protein Vancomycin Trough Rheumatoid Factor Complement C4 Crossmatch 09/12/16 09/12/16 09/12/16 06:45 06:45 07:22 WBC 31.7 H RBC 3.54 L Hgb 8.3 L Hct 25.9 L MCV 73 L MCH 23 L MCHC RDW 18.9 H Plt Count Lymph % (Auto) [place] % (Auto) Lymph # [place] # Seg Neutrophils % Seg Neuts % (Manual) 88.5 H Lymphocytes % (Manual) 4.5 L Monocytes % (Manual) Eosinophils % (Manual) Basophils % (Manual) Nucleated RBC % Seg Neutrophils # Seg Neutrophils # Man 28.1 H Lymphocytes # (Manual) Monocytes # (Manual) 1.0 H Eosinophils # (Manual) Fibrinogen dRVVT Confirm Interp Factor V Activity POC ABG pH POC ABG pCO2 POC ABG pO2 Sodium Potassium Chloride Carbon Dioxide 20 L BUN 115 H Creatinine 2.7 H Glucose 165 H POC Glucose Lactic Acid Calcium 8.0 L Phosphorus Magnesium Direct Bilirubin Troponin T C-Reactive Protein Total Protein Albumin Triglycerides 217 H Cholesterol LDL Cholesterol Direct HDL Cholesterol Urine WBC (Auto) Urine Creatinine Urine Total Protein Vancomycin Trough Rheumatoid Factor Complement C4 Crossmatch 09/12/16 09/12/16 09/12/16 07:22 09:59 12:21 WBC RBC Hgb Hct MCV MCH MCHC RDW Plt Count Lymph % (Auto) [place] % (Auto) Lymph # [place] # Seg Neutrophils % Seg Neuts % (Manual) Lymphocytes % (Manual) Monocytes % (Manual) Eosinophils % (Manual) Basophils % (Manual) Nucleated RBC % Seg Neutrophils # Seg Neutrophils # Man Lymphocytes # (Manual) Monocytes # (Manual) Eosinophils # (Manual) Fibrinogen dRVVT Confirm Interp Positive H Factor V Activity POC ABG pH POC ABG pCO2 POC ABG pO2 Sodium Potassium Chloride Carbon Dioxide BUN Creatinine Glucose POC Glucose 224 H Lactic Acid Calcium Phosphorus Magnesium Direct Bilirubin Troponin T C-Reactive Protein 1.70 H Total Protein Albumin Triglycerides Cholesterol LDL Cholesterol Direct HDL Cholesterol Urine WBC (Auto) Urine Creatinine Urine Total Protein Vancomycin Trough Rheumatoid Factor Complement C4 Crossmatch 09/12/16 09/12/16 09/13/16 16:51 23:28 04:00 WBC 45.0 H* RBC Hgb 9.4 L Hct MCV 75 L MCH 23 L MCHC RDW 19.0 H Plt Count 470 H Lymph % (Auto) [place] % (Auto) Lymph # [place] # Seg Neutrophils % Seg Neuts % (Manual) 89.0 H Lymphocytes % (Manual) 5.0 L Monocytes % (Manual) Eosinophils % (Manual) Basophils % (Manual) Nucleated RBC % Seg Neutrophils # Seg Neutrophils # Man 40.1 H Lymphocytes # (Manual) Monocytes # (Manual) Eosinophils # (Manual) Fibrinogen dRVVT Confirm Interp Factor V Activity POC ABG pH POC ABG pCO2 POC ABG pO2 Sodium Potassium Chloride Carbon Dioxide BUN Creatinine Glucose POC Glucose 169 H 150 H Lactic Acid Calcium Phosphorus Magnesium Direct Bilirubin Troponin T C-Reactive Protein Total Protein Albumin Triglycerides Cholesterol LDL Cholesterol Direct HDL Cholesterol Urine WBC (Auto) Urine Creatinine Urine Total Protein Vancomycin Trough Rheumatoid Factor Complement C4 Crossmatch 09/13/16 09/13/16 09/13/16 04:00 11:26 17:31 WBC RBC Hgb Hct MCV MCH MCHC RDW Plt Count Lymph % (Auto) [place] % (Auto) Lymph # [place] # Seg Neutrophils % Seg Neuts % (Manual) Lymphocytes % (Manual) Monocytes % (Manual) Eosinophils % (Manual) Basophils % (Manual) Nucleated RBC % Seg Neutrophils # Seg Neutrophils # Man Lymphocytes # (Manual) Monocytes # (Manual) Eosinophils # (Manual) Fibrinogen dRVVT Confirm Interp Factor V Activity POC ABG pH POC ABG pCO2 POC ABG pO2 Sodium Potassium Chloride Carbon Dioxide 20 L BUN 116 H Creatinine 3.0 H Glucose 172 H POC Glucose 140 H 183 H Lactic Acid Calcium Phosphorus Magnesium Direct Bilirubin Troponin T C-Reactive Protein Total Protein 6.2 L Albumin 2.9 L Triglycerides Cholesterol LDL Cholesterol Direct HDL Cholesterol Urine WBC (Auto) Urine Creatinine Urine Total Protein Vancomycin Trough Rheumatoid Factor Complement C4 Crossmatch 09/13/16 09/14/16 09/14/16 23:23 04:06 04:07 WBC 29.4 H RBC Hgb 8.9 L Hct 27.3 L MCV 75 L MCH 24 L MCHC RDW 19.1 H Plt Count Lymph % (Auto) [place] % (Auto) Lymph # [place] # Seg Neutrophils % Seg Neuts % (Manual) 84.0 H Lymphocytes % (Manual) 6.0 L Monocytes % (Manual) 9.0 H Eosinophils % (Manual) Basophils % (Manual) Nucleated RBC % Seg Neutrophils # Seg Neutrophils # Man 24.7 H Lymphocytes # (Manual) Monocytes # (Manual) 2.6 H Eosinophils # (Manual) Fibrinogen dRVVT Confirm Interp Factor V Activity POC ABG pH 7.342 L POC ABG pCO2 POC ABG pO2 116 H Sodium Potassium Chloride Carbon Dioxide BUN Creatinine Glucose POC Glucose 154 H Lactic Acid Calcium Phosphorus Magnesium Direct Bilirubin Troponin T C-Reactive Protein Total Protein Albumin Triglycerides Cholesterol LDL Cholesterol Direct HDL Cholesterol Urine WBC (Auto) Urine Creatinine Urine Total Protein Vancomycin Trough Rheumatoid Factor Complement C4 Crossmatch 09/14/16 09/14/16 09/14/16 04:07 05:29 12:19 WBC RBC Hgb Hct MCV MCH MCHC RDW Plt Count Lymph % (Auto) [place] % (Auto) Lymph # [place] # Seg Neutrophils % Seg Neuts % (Manual) Lymphocytes % (Manual) Monocytes % (Manual) Eosinophils % (Manual) Basophils % (Manual) Nucleated RBC % Seg Neutrophils # Seg Neutrophils # Man Lymphocytes # (Manual) Monocytes # (Manual) Eosinophils # (Manual) Fibrinogen dRVVT Confirm Interp Factor V Activity POC ABG pH POC ABG pCO2 POC ABG pO2 Sodium 136 L Potassium Chloride Carbon Dioxide 18 L BUN 121 H Creatinine 2.8 H Glucose 214 H POC Glucose 239 H 181 H Lactic Acid Calcium Phosphorus Magnesium Direct Bilirubin Troponin T C-Reactive Protein Total Protein Albumin Triglycerides Cholesterol LDL Cholesterol Direct HDL Cholesterol Urine WBC (Auto) Urine Creatinine Urine Total Protein Vancomycin Trough Rheumatoid Factor Complement C4 Crossmatch 09/14/16 09/14/16 09/15/16 18:12 23:37 05:00 WBC 26.1 H RBC 3.05 L Hgb 7.2 L Hct 22.9 L MCV 75 L MCH 24 L MCHC RDW 19.0 H Plt Count Lymph % (Auto) [place] % (Auto) Lymph # [place] # Seg Neutrophils % Seg Neuts % (Manual) Lymphocytes % (Manual) Monocytes % (Manual) Eosinophils % (Manual) Basophils % (Manual) Nucleated RBC % Seg Neutrophils # Seg Neutrophils # Man Lymphocytes # (Manual) Monocytes # (Manual) Eosinophils # (Manual) Fibrinogen dRVVT Confirm Interp Factor V Activity POC ABG pH POC ABG pCO2 POC ABG pO2 Sodium Potassium Chloride Carbon Dioxide BUN Creatinine Glucose POC Glucose 266 H 154 H Lactic Acid Calcium Phosphorus Magnesium Direct Bilirubin Troponin T C-Reactive Protein Total Protein Albumin Triglycerides Cholesterol LDL Cholesterol Direct HDL Cholesterol Urine WBC (Auto) Urine Creatinine Urine Total Protein Vancomycin Trough Rheumatoid Factor Complement C4 Crossmatch 09/15/16 09/15/16 09/15/16 05:00 05:17 12:45 WBC RBC Hgb Hct MCV MCH MCHC RDW Plt Count Lymph % (Auto) [place] % (Auto) Lymph # [place] # Seg Neutrophils % Seg Neuts % (Manual) Lymphocytes % (Manual) Monocytes % (Manual) Eosinophils % (Manual) Basophils % (Manual) Nucleated RBC % Seg Neutrophils # Seg Neutrophils # Man Lymphocytes # (Manual) Monocytes # (Manual) Eosinophils # (Manual) Fibrinogen dRVVT Confirm Interp Factor V Activity POC ABG pH POC ABG pCO2 POC ABG pO2 Sodium Potassium 5.2 H Chloride Carbon Dioxide 18 L BUN 139 H Creatinine 3.7 H Glucose 227 H POC Glucose 226 H 244 H Lactic Acid Calcium 8.3 L Phosphorus Magnesium Direct Bilirubin Troponin T C-Reactive Protein Total Protein Albumin Triglycerides Cholesterol LDL Cholesterol Direct HDL Cholesterol Urine WBC (Auto) Urine Creatinine Urine Total Protein Vancomycin Trough Rheumatoid Factor Complement C4 Crossmatch 09/15/16 09/15/16 09/15/16 14:32 17:33 23:35 WBC RBC Hgb Hct MCV MCH MCHC RDW Plt Count Lymph % (Auto) [place] % (Auto) Lymph # [place] # Seg Neutrophils % Seg Neuts % (Manual) Lymphocytes % (Manual) Monocytes % (Manual) Eosinophils % (Manual) Basophils % (Manual) Nucleated RBC % Seg Neutrophils # Seg Neutrophils # Man Lymphocytes # (Manual) Monocytes # (Manual) Eosinophils # (Manual) Fibrinogen dRVVT Confirm Interp Factor V Activity POC ABG pH POC ABG pCO2 27.7 L POC ABG pO2 120 H Sodium Potassium Chloride Carbon Dioxide BUN Creatinine Glucose POC Glucose 232 H 167 H Lactic Acid Calcium Phosphorus Magnesium Direct Bilirubin Troponin T C-Reactive Protein Total Protein Albumin Triglycerides Cholesterol LDL Cholesterol Direct HDL Cholesterol Urine WBC (Auto) Urine Creatinine Urine Total Protein Vancomycin Trough Rheumatoid Factor Complement C4 Crossmatch 09/16/16 09/16/16 09/16/16 03:58 10:27 10:27 WBC 19.0 H RBC 2.77 L Hgb 6.5 L Hct 20.9 L MCV 76 L MCH 23 L MCHC RDW 19.3 H Plt Count Lymph % (Auto) 11.0 L [place] % (Auto) Lymph # [place] # 1.1 H Seg Neutrophils % 82.5 H Seg Neuts % (Manual) Lymphocytes % (Manual) Monocytes % (Manual) Eosinophils % (Manual) Basophils % (Manual) Nucleated RBC % Seg Neutrophils # 15.7 H Seg Neutrophils # Man Lymphocytes # (Manual) Monocytes # (Manual) Eosinophils # (Manual) Fibrinogen dRVVT Confirm Interp Factor V Activity POC ABG pH POC ABG pCO2 POC ABG pO2 Sodium Potassium Chloride 109.3 H Carbon Dioxide 18 L BUN 139 H Creatinine 4.1 H Glucose 144 H POC Glucose 146 H Lactic Acid Calcium 8.1 L Phosphorus Magnesium Direct Bilirubin Troponin T C-Reactive Protein Total Protein Albumin Triglycerides Cholesterol LDL Cholesterol Direct HDL Cholesterol Urine WBC (Auto) Urine Creatinine Urine Total Protein Vancomycin Trough Rheumatoid Factor Complement C4 Crossmatch 09/16/16 09/16/16 09/16/16 12:04 12:10 13:55 WBC RBC Hgb Hct MCV MCH MCHC RDW Plt Count Lymph % (Auto) [place] % (Auto) Lymph # [place] # Seg Neutrophils % Seg Neuts % (Manual) Lymphocytes % (Manual) Monocytes % (Manual) Eosinophils % (Manual) Basophils % (Manual) Nucleated RBC % Seg Neutrophils # Seg Neutrophils # Man Lymphocytes # (Manual) Monocytes # (Manual) Eosinophils # (Manual) Fibrinogen dRVVT Confirm Interp Factor V Activity POC ABG pH POC ABG pCO2 32.9 L POC ABG pO2 Sodium Potassium Chloride Carbon Dioxide BUN Creatinine Glucose POC Glucose 185 H Lactic Acid Calcium Phosphorus Magnesium Direct Bilirubin Troponin T C-Reactive Protein Total Protein Albumin Triglycerides Cholesterol LDL Cholesterol Direct HDL Cholesterol Urine WBC (Auto) Urine Creatinine Urine Total Protein Vancomycin Trough Rheumatoid Factor Complement C4 Crossmatch See Detail 09/16/16 09/16/16 09/16/16 17:55 19:19 23:48 WBC RBC Hgb Hct MCV MCH MCHC RDW Plt Count Lymph % (Auto) [place] % (Auto) Lymph # [place] # Seg Neutrophils % Seg Neuts % (Manual) Lymphocytes % (Manual) Monocytes % (Manual) Eosinophils % (Manual) Basophils % (Manual) Nucleated RBC % Seg Neutrophils # Seg Neutrophils # Man Lymphocytes # (Manual) Monocytes # (Manual) Eosinophils # (Manual) Fibrinogen dRVVT Confirm Interp Factor V Activity POC ABG pH POC ABG pCO2 POC ABG pO2 Sodium Potassium Chloride Carbon Dioxide BUN Creatinine Glucose POC Glucose 222 H 107 H Lactic Acid Calcium Phosphorus Magnesium Direct Bilirubin Troponin T C-Reactive Protein Total Protein Albumin Triglycerides Cholesterol LDL Cholesterol Direct HDL Cholesterol Urine WBC (Auto) Urine Creatinine 47.4 H Urine Total Protein 16 H Vancomycin Trough Rheumatoid Factor Complement C4 Crossmatch 09/17/16 09/17/16 09/17/16 03:45 03:45 04:55 WBC 19.6 H RBC 3.41 L Hgb 8.5 L Hct 26.7 L MCV 78 L MCH 25 L MCHC RDW 19.9 H Plt Count Lymph % (Auto) 9.3 L [place] % (Auto) Lymph # [place] # 1.2 H Seg Neutrophils % 83.9 H Seg Neuts % (Manual) Lymphocytes % (Manual) Monocytes % (Manual) Eosinophils % (Manual) Basophils % (Manual) Nucleated RBC % Seg Neutrophils # 16.4 H Seg Neutrophils # Man Lymphocytes # (Manual) Monocytes # (Manual) Eosinophils # (Manual) Fibrinogen dRVVT Confirm Interp Factor V Activity POC ABG pH POC ABG pCO2 POC ABG pO2 Sodium 146 H Potassium 5.1 H Chloride 110.9 H Carbon Dioxide 16 L BUN 146 H Creatinine 4.0 H Glucose 108 H POC Glucose 133 H Lactic Acid Calcium Phosphorus Magnesium 3.00 H Direct Bilirubin Troponin T C-Reactive Protein Total Protein Albumin Triglycerides Cholesterol LDL Cholesterol Direct HDL Cholesterol Urine WBC (Auto) Urine Creatinine Urine Total Protein Vancomycin Trough Rheumatoid Factor Complement C4 Crossmatch 09/17/16 09/17/16 09/17/16 11:15 17:33 23:47 WBC RBC Hgb Hct MCV MCH MCHC RDW Plt Count Lymph % (Auto) [place] % (Auto) Lymph # [place] # Seg Neutrophils % Seg Neuts % (Manual) Lymphocytes % (Manual) Monocytes % (Manual) Eosinophils % (Manual) Basophils % (Manual) Nucleated RBC % Seg Neutrophils # Seg Neutrophils # Man Lymphocytes # (Manual) Monocytes # (Manual) Eosinophils # (Manual) Fibrinogen dRVVT Confirm Interp Factor V Activity POC ABG pH POC ABG pCO2 POC ABG pO2 Sodium Potassium Chloride Carbon Dioxide BUN Creatinine Glucose POC Glucose 176 H 246 H 148 H Lactic Acid Calcium Phosphorus Magnesium Direct Bilirubin Troponin T C-Reactive Protein Total Protein Albumin Triglycerides Cholesterol LDL Cholesterol Direct HDL Cholesterol Urine WBC (Auto) Urine Creatinine Urine Total Protein Vancomycin Trough Rheumatoid Factor Complement C4 Crossmatch 09/18/16 09/18/16 09/18/16 05:33 08:31 08:31 WBC 18.0 H RBC 3.17 L Hgb 9.0 L Hct 25.7 L MCV MCH MCHC 35 H RDW 20.4 H Plt Count Lymph % (Auto) [place] % (Auto) Lymph # [place] # Seg Neutrophils % Seg Neuts % (Manual) Lymphocytes % (Manual) Monocytes % (Manual) Eosinophils % (Manual) Basophils % (Manual) Nucleated RBC % Seg Neutrophils # Seg Neutrophils # Man Lymphocytes # (Manual) Monocytes # (Manual) Eosinophils # (Manual) Fibrinogen dRVVT Confirm Interp Factor V Activity POC ABG pH POC ABG pCO2 POC ABG pO2 Sodium Potassium Chloride Carbon Dioxide 15 L BUN 124 H Creatinine 3.8 H Glucose POC Glucose 120 H Lactic Acid Calcium 8.1 L Phosphorus Magnesium Direct Bilirubin Troponin T C-Reactive Protein Total Protein Albumin Triglycerides Cholesterol LDL Cholesterol Direct HDL Cholesterol Urine WBC (Auto) Urine Creatinine Urine Total Protein Vancomycin Trough Rheumatoid Factor Complement C4 Crossmatch 09/18/16 09/18/16 09/18/16 12:03 15:34 17:50 WBC RBC Hgb Hct MCV MCH MCHC RDW Plt Count Lymph % (Auto) [place] % (Auto) Lymph # [place] # Seg Neutrophils % Seg Neuts % (Manual) Lymphocytes % (Manual) Monocytes % (Manual) Eosinophils % (Manual) Basophils % (Manual) Nucleated RBC % Seg Neutrophils # Seg Neutrophils # Man Lymphocytes # (Manual) Monocytes # (Manual) Eosinophils # (Manual) Fibrinogen dRVVT Confirm Interp Factor V Activity POC ABG pH POC ABG pCO2 25.7 L POC ABG pO2 66 L Sodium Potassium Chloride Carbon Dioxide BUN Creatinine Glucose POC Glucose 156 H 220 H Lactic Acid Calcium Phosphorus Magnesium Direct Bilirubin Troponin T C-Reactive Protein Total Protein Albumin Triglycerides Cholesterol LDL Cholesterol Direct HDL Cholesterol Urine WBC (Auto) Urine Creatinine Urine Total Protein Vancomycin Trough Rheumatoid Factor Complement C4 Crossmatch 09/19/16 09/19/16 09/19/16 06:21 09:50 09:50 WBC 17.1 H RBC 3.49 L Hgb 9.0 L Hct 28.1 L MCV MCH 26 L MCHC RDW 20.8 H Plt Count Lymph % (Auto) 11.5 L [place] % (Auto) 7.5 H Lymph # [place] # 1.3 H Seg Neutrophils % 79.8 H Seg Neuts % (Manual) Lymphocytes % (Manual) Monocytes % (Manual) Eosinophils % (Manual) Basophils % (Manual) Nucleated RBC % Seg Neutrophils # 13.7 H Seg Neutrophils # Man Lymphocytes # (Manual) Monocytes # (Manual) Eosinophils # (Manual) Fibrinogen dRVVT Confirm Interp Factor V Activity POC ABG pH POC ABG pCO2 POC ABG pO2 Sodium Potassium Chloride 108.6 H Carbon Dioxide 15 L BUN 125 H Creatinine 4.1 H Glucose 124 H POC Glucose 119 H Lactic Acid Calcium Phosphorus Magnesium Direct Bilirubin Troponin T C-Reactive Protein Total Protein Albumin Triglycerides Cholesterol LDL Cholesterol Direct HDL Cholesterol Urine WBC (Auto) Urine Creatinine Urine Total Protein Vancomycin Trough Rheumatoid Factor Complement C4 Crossmatch 09/19/16 09/19/16 09/19/16 11:25 17:53 23:36 WBC RBC Hgb Hct MCV MCH MCHC RDW Plt Count Lymph % (Auto) [place] % (Auto) Lymph # [place] # Seg Neutrophils % Seg Neuts % (Manual) Lymphocytes % (Manual) Monocytes % (Manual) Eosinophils % (Manual) Basophils % (Manual) Nucleated RBC % Seg Neutrophils # Seg Neutrophils # Man Lymphocytes # (Manual) Monocytes # (Manual) Eosinophils # (Manual) Fibrinogen dRVVT Confirm Interp Factor V Activity POC ABG pH POC ABG pCO2 POC ABG pO2 Sodium Potassium Chloride Carbon Dioxide BUN Creatinine Glucose POC Glucose 160 H 245 H 121 H Lactic Acid Calcium Phosphorus Magnesium Direct Bilirubin Troponin T C-Reactive Protein Total Protein Albumin Triglycerides Cholesterol LDL Cholesterol Direct HDL Cholesterol Urine WBC (Auto) Urine Creatinine Urine Total Protein Vancomycin Trough Rheumatoid Factor Complement C4 Crossmatch 09/20/16 09/20/16 09/20/16 04:10 04:10 04:10 WBC 17.0 H RBC 3.21 L Hgb 8.2 L Hct 25.5 L MCV MCH 26 L MCHC RDW 20.9 H Plt Count Lymph % (Auto) [place] % (Auto) Lymph # [place] # Seg Neutrophils % Seg Neuts % (Manual) Lymphocytes % (Manual) Monocytes % (Manual) Eosinophils % (Manual) Basophils % (Manual) Nucleated RBC % Seg Neutrophils # Seg Neutrophils # Man Lymphocytes # (Manual) Monocytes # (Manual) Eosinophils # (Manual) Fibrinogen dRVVT Confirm Interp Factor V Activity POC ABG pH POC ABG pCO2 POC ABG pO2 Sodium Potassium Chloride 111.0 H Carbon Dioxide 16 L BUN 129 H Creatinine 3.7 H Glucose 115 H POC Glucose Lactic Acid Calcium 8.2 L Phosphorus Magnesium Direct Bilirubin Troponin T C-Reactive Protein Total Protein Albumin Triglycerides 243 H Cholesterol LDL Cholesterol Direct HDL Cholesterol Urine WBC (Auto) Urine Creatinine Urine Total Protein Vancomycin Trough Rheumatoid Factor Complement C4 Crossmatch 09/20/16 09/20/16 09/20/16 05:40 11:52 16:50 WBC RBC Hgb Hct MCV MCH MCHC RDW Plt Count Lymph % (Auto) [place] % (Auto) Lymph # [place] # Seg Neutrophils % Seg Neuts % (Manual) Lymphocytes % (Manual) Monocytes % (Manual) Eosinophils % (Manual) Basophils % (Manual) Nucleated RBC % Seg Neutrophils # Seg Neutrophils # Man Lymphocytes # (Manual) Monocytes # (Manual) Eosinophils # (Manual) Fibrinogen dRVVT Confirm Interp Factor V Activity POC ABG pH POC ABG pCO2 POC ABG pO2 Sodium Potassium Chloride Carbon Dioxide BUN Creatinine Glucose POC Glucose 131 H 183 H 236 H Lactic Acid Calcium Phosphorus Magnesium Direct Bilirubin Troponin T C-Reactive Protein Total Protein Albumin Triglycerides Cholesterol LDL Cholesterol Direct HDL Cholesterol Urine WBC (Auto) Urine Creatinine Urine Total Protein Vancomycin Trough Rheumatoid Factor Complement C4 Crossmatch 09/20/16 09/21/16 09/21/16 23:51 03:30 04:44 WBC RBC Hgb Hct MCV MCH MCHC RDW Plt Count Lymph % (Auto) [place] % (Auto) Lymph # [place] # Seg Neutrophils % Seg Neuts % (Manual) Lymphocytes % (Manual) Monocytes % (Manual) Eosinophils % (Manual) Basophils % (Manual) Nucleated RBC % Seg Neutrophils # Seg Neutrophils # Man Lymphocytes # (Manual) Monocytes # (Manual) Eosinophils # (Manual) Fibrinogen dRVVT Confirm Interp Factor V Activity POC ABG pH POC ABG pCO2 POC ABG pO2 Sodium Potassium Chloride Carbon Dioxide BUN Creatinine Glucose POC Glucose 114 H 141 H Lactic Acid Calcium Phosphorus Magnesium 2.70 H Direct Bilirubin Troponin T C-Reactive Protein Total Protein Albumin Triglycerides Cholesterol LDL Cholesterol Direct HDL Cholesterol Urine WBC (Auto) Urine Creatinine Urine Total Protein Vancomycin Trough Rheumatoid Factor Complement C4 Crossmatch 09/21/16 09/21/16 09/21/16 07:45 07:45 10:01 WBC 13.8 H RBC 2.94 L Hgb 7.5 L Hct 23.5 L MCV MCH 26 L MCHC RDW 21.2 H Plt Count Lymph % (Auto) 6.9 L [place] % (Auto) 9.4 H Lymph # 0.9 L [place] # 1.3 H Seg Neutrophils % 83.2 H Seg Neuts % (Manual) Lymphocytes % (Manual) Monocytes % (Manual) Eosinophils % (Manual) Basophils % (Manual) Nucleated RBC % Seg Neutrophils # 11.5 H Seg Neutrophils # Man Lymphocytes # (Manual) Monocytes # (Manual) Eosinophils # (Manual) Fibrinogen dRVVT Confirm Interp Factor V Activity POC ABG pH 7.308 L POC ABG pCO2 31.9 L POC ABG pO2 148 H Sodium 147 H Potassium Chloride 114.2 H Carbon Dioxide 15 L BUN 120 H Creatinine 3.9 H Glucose 156 H POC Glucose Lactic Acid Calcium 8.2 L Phosphorus Magnesium Direct Bilirubin Troponin T C-Reactive Protein Total Protein Albumin Triglycerides Cholesterol LDL Cholesterol Direct HDL Cholesterol Urine WBC (Auto) Urine Creatinine Urine Total Protein Vancomycin Trough Rheumatoid Factor Complement C4 Crossmatch 09/21/16 09/21/16 09/21/16 12:00 12:03 13:00 WBC RBC Hgb Hct MCV MCH MCHC RDW Plt Count Lymph % (Auto) [place] % (Auto) Lymph # [place] # Seg Neutrophils % Seg Neuts % (Manual) Lymphocytes % (Manual) Monocytes % (Manual) Eosinophils % (Manual) Basophils % (Manual) Nucleated RBC % Seg Neutrophils # Seg Neutrophils # Man Lymphocytes # (Manual) Monocytes # (Manual) Eosinophils # (Manual) Fibrinogen dRVVT Confirm Interp Factor V Activity POC ABG pH POC ABG pCO2 POC ABG pO2 Sodium Potassium Chloride Carbon Dioxide BUN Creatinine Glucose POC Glucose 163 H Lactic Acid Calcium Phosphorus Magnesium Direct Bilirubin Troponin T C-Reactive Protein Total Protein Albumin Triglycerides Cholesterol LDL Cholesterol Direct HDL Cholesterol Urine WBC (Auto) Urine Creatinine 54.8 H Urine Total Protein Vancomycin Trough 2.3 L Rheumatoid Factor Complement C4 Crossmatch 09/21/16 09/21/16 09/22/16 16:51 23:17 06:27 WBC RBC Hgb Hct MCV MCH MCHC RDW Plt Count Lymph % (Auto) [place] % (Auto) Lymph # [place] # Seg Neutrophils % Seg Neuts % (Manual) Lymphocytes % (Manual) Monocytes % (Manual) Eosinophils % (Manual) Basophils % (Manual) Nucleated RBC % Seg Neutrophils # Seg Neutrophils # Man Lymphocytes # (Manual) Monocytes # (Manual) Eosinophils # (Manual) Fibrinogen dRVVT Confirm Interp Factor V Activity POC ABG pH POC ABG pCO2 POC ABG pO2 Sodium Potassium Chloride Carbon Dioxide BUN Creatinine Glucose POC Glucose 206 H 114 H 115 H Lactic Acid Calcium Phosphorus Magnesium Direct Bilirubin Troponin T C-Reactive Protein Total Protein Albumin Triglycerides Cholesterol LDL Cholesterol Direct HDL Cholesterol Urine WBC (Auto) Urine Creatinine Urine Total Protein Vancomycin Trough Rheumatoid Factor Complement C4 Crossmatch 09/22/16 09/22/16 09/22/16 07:50 07:50 12:00 WBC 17.8 H RBC 3.04 L Hgb 8.0 L Hct 24.7 L MCV MCH 26 L MCHC RDW 21.6 H Plt Count Lymph % (Auto) [place] % (Auto) Lymph # [place] # Seg Neutrophils % Seg Neuts % (Manual) Lymphocytes % (Manual) Monocytes % (Manual) Eosinophils % (Manual) Basophils % (Manual) Nucleated RBC % Seg Neutrophils # Seg Neutrophils # Man Lymphocytes # (Manual) Monocytes # (Manual) Eosinophils # (Manual) Fibrinogen dRVVT Confirm Interp Factor V Activity POC ABG pH POC ABG pCO2 POC ABG pO2 Sodium 150 H Potassium Chloride 118.2 H Carbon Dioxide 14 L BUN 111 H Creatinine 3.7 H Glucose 157 H POC Glucose 183 H Lactic Acid Calcium Phosphorus Magnesium Direct Bilirubin Troponin T C-Reactive Protein Total Protein Albumin Triglycerides Cholesterol LDL Cholesterol Direct HDL Cholesterol Urine WBC (Auto) Urine Creatinine Urine Total Protein Vancomycin Trough Rheumatoid Factor Complement C4 Crossmatch 09/22/16 09/22/16 09/23/16 17:29 23:10 05:00 WBC 19.2 H RBC 3.13 L Hgb 8.0 L Hct 25.2 L MCV MCH 26 L MCHC RDW 22.1 H Plt Count Lymph % (Auto) [place] % (Auto) Lymph # [place] # Seg Neutrophils % Seg Neuts % (Manual) 92.0 H Lymphocytes % (Manual) 3.0 L Monocytes % (Manual) Eosinophils % (Manual) Basophils % (Manual) Nucleated RBC % Seg Neutrophils # Seg Neutrophils # Man 17.7 H Lymphocytes # (Manual) 0.6 L Monocytes # (Manual) Eosinophils # (Manual) Fibrinogen dRVVT Confirm Interp Factor V Activity POC ABG pH POC ABG pCO2 POC ABG pO2 Sodium Potassium Chloride Carbon Dioxide BUN Creatinine Glucose POC Glucose 197 H 169 H Lactic Acid Calcium Phosphorus Magnesium Direct Bilirubin Troponin T C-Reactive Protein Total Protein Albumin Triglycerides Cholesterol LDL Cholesterol Direct HDL Cholesterol Urine WBC (Auto) Urine Creatinine Urine Total Protein Vancomycin Trough Rheumatoid Factor Complement C4 Crossmatch 09/23/16 09/23/16 09/23/16 05:00 05:00 05:10 WBC RBC Hgb Hct MCV MCH MCHC RDW Plt Count Lymph % (Auto) [place] % (Auto) Lymph # [place] # Seg Neutrophils % Seg Neuts % (Manual) Lymphocytes % (Manual) Monocytes % (Manual) Eosinophils % (Manual) Basophils % (Manual) Nucleated RBC % Seg Neutrophils # Seg Neutrophils # Man Lymphocytes # (Manual) Monocytes # (Manual) Eosinophils # (Manual) Fibrinogen dRVVT Confirm Interp Factor V Activity POC ABG pH POC ABG pCO2 POC ABG pO2 Sodium 147 H Potassium 3.2 L Chloride 115.7 H Carbon Dioxide 13 L BUN 111 H Creatinine 3.8 H Glucose 194 H POC Glucose 188 H Lactic Acid Calcium 7.3 L D Phosphorus Magnesium Direct Bilirubin Troponin T C-Reactive Protein 3.20 H Total Protein Albumin Triglycerides Cholesterol LDL Cholesterol Direct HDL Cholesterol Urine WBC (Auto) Urine Creatinine Urine Total Protein Vancomycin Trough Rheumatoid Factor Complement C4 Crossmatch 09/23/16 09/23/16 09/23/16 11:37 12:29 18:01 WBC RBC Hgb Hct MCV MCH MCHC RDW Plt Count Lymph % (Auto) [place] % (Auto) Lymph # [place] # Seg Neutrophils % Seg Neuts % (Manual) Lymphocytes % (Manual) Monocytes % (Manual) Eosinophils % (Manual) Basophils % (Manual) Nucleated RBC % Seg Neutrophils # Seg Neutrophils # Man Lymphocytes # (Manual) Monocytes # (Manual) Eosinophils # (Manual) Fibrinogen dRVVT Confirm Interp Factor V Activity POC ABG pH POC ABG pCO2 18.9 L POC ABG pO2 143 H Sodium Potassium Chloride Carbon Dioxide BUN Creatinine Glucose POC Glucose 153 H 108 H Lactic Acid Calcium Phosphorus Magnesium Direct Bilirubin Troponin T C-Reactive Protein Total Protein Albumin Triglycerides Cholesterol LDL Cholesterol Direct HDL Cholesterol Urine WBC (Auto) Urine Creatinine Urine Total Protein Vancomycin Trough Rheumatoid Factor Complement C4 Crossmatch 09/23/16 09/23/16 09/24/16 21:19 23:43 05:16 WBC RBC Hgb Hct MCV MCH MCHC RDW Plt Count Lymph % (Auto) [place] % (Auto) Lymph # [place] # Seg Neutrophils % Seg Neuts % (Manual) Lymphocytes % (Manual) Monocytes % (Manual) Eosinophils % (Manual) Basophils % (Manual) Nucleated RBC % Seg Neutrophils # Seg Neutrophils # Man Lymphocytes # (Manual) Monocytes # (Manual) Eosinophils # (Manual) Fibrinogen dRVVT Confirm Interp Factor V Activity POC ABG pH POC ABG pCO2 17.3 L POC ABG pO2 112 H Sodium Potassium Chloride Carbon Dioxide BUN Creatinine Glucose POC Glucose 143 H 164 H Lactic Acid Calcium Phosphorus Magnesium Direct Bilirubin Troponin T C-Reactive Protein Total Protein Albumin Triglycerides Cholesterol LDL Cholesterol Direct HDL Cholesterol Urine WBC (Auto) Urine Creatinine Urine Total Protein Vancomycin Trough Rheumatoid Factor Complement C4 Crossmatch 09/24/16 09/24/16 09/24/16 05:21 11:58 17:06 WBC RBC Hgb Hct MCV MCH MCHC RDW Plt Count Lymph % (Auto) [place] % (Auto) Lymph # [place] # Seg Neutrophils % Seg Neuts % (Manual) Lymphocytes % (Manual) Monocytes % (Manual) Eosinophils % (Manual) Basophils % (Manual) Nucleated RBC % Seg Neutrophils # Seg Neutrophils # Man Lymphocytes # (Manual) Monocytes # (Manual) Eosinophils # (Manual) Fibrinogen dRVVT Confirm Interp Factor V Activity POC ABG pH POC ABG pCO2 POC ABG pO2 Sodium Potassium Chloride Carbon Dioxide 10 L BUN 103 H Creatinine 4.3 H Glucose 163 H POC Glucose 173 H 167 H Lactic Acid Calcium 6.5 L Phosphorus Magnesium Direct Bilirubin Troponin T C-Reactive Protein Total Protein Albumin Triglycerides Cholesterol LDL Cholesterol Direct HDL Cholesterol Urine WBC (Auto) Urine Creatinine Urine Total Protein Vancomycin Trough Rheumatoid Factor Complement C4 Crossmatch 09/24/16 09/24/16 09/24/16 20:15 21:02 23:48 WBC RBC Hgb Hct MCV MCH MCHC RDW Plt Count Lymph % (Auto) [place] % (Auto) Lymph # [place] # Seg Neutrophils % Seg Neuts % (Manual) Lymphocytes % (Manual) Monocytes % (Manual) Eosinophils % (Manual) Basophils % (Manual) Nucleated RBC % Seg Neutrophils # Seg Neutrophils # Man Lymphocytes # (Manual) Monocytes # (Manual) Eosinophils # (Manual) Fibrinogen dRVVT Confirm Interp Factor V Activity POC ABG pH 7.288 L POC ABG pCO2 30.2 L 21.5 L POC ABG pO2 32 L 39 L Sodium Potassium Chloride Carbon Dioxide BUN Creatinine Glucose POC Glucose 109 H Lactic Acid Calcium Phosphorus Magnesium Direct Bilirubin Troponin T C-Reactive Protein Total Protein Albumin Triglycerides Cholesterol LDL Cholesterol Direct HDL Cholesterol Urine WBC (Auto) Urine Creatinine Urine Total Protein Vancomycin Trough Rheumatoid Factor Complement C4 Crossmatch 09/25/16 09/25/16 09/25/16 04:20 04:20 04:20 WBC RBC 2.58 L Hgb 7.0 L Hct 21.0 L MCV MCH 27 L MCHC RDW 23.8 H Plt Count Lymph % (Auto) [place] % (Auto) Lymph # [place] # Seg Neutrophils % Seg Neuts % (Manual) Lymphocytes % (Manual) 12.0 L Monocytes % (Manual) Eosinophils % (Manual) 7.0 H Basophils % (Manual) 2.0 H Nucleated RBC % Seg Neutrophils # Seg Neutrophils # Man Lymphocytes # (Manual) 0.9 L Monocytes # (Manual) Eosinophils # (Manual) 0.5 H Fibrinogen dRVVT Confirm Interp Factor V Activity POC ABG pH POC ABG pCO2 POC ABG pO2 Sodium Potassium Chloride Carbon Dioxide 15 L BUN 72 H Creatinine 3.8 H Glucose POC Glucose Lactic Acid Calcium 6.0 L Phosphorus 4.60 H Magnesium 1.60 L Direct Bilirubin Troponin T C-Reactive Protein Total Protein Albumin Triglycerides Cholesterol LDL Cholesterol Direct HDL Cholesterol Urine WBC (Auto) Urine Creatinine Urine Total Protein Vancomycin Trough Rheumatoid Factor Complement C4 Crossmatch 09/25/16 09/25/16 09/25/16 04:57 08:02 10:30 WBC RBC Hgb Hct MCV MCH MCHC RDW Plt Count Lymph % (Auto) [place] % (Auto) Lymph # [place] # Seg Neutrophils % Seg Neuts % (Manual) Lymphocytes % (Manual) Monocytes % (Manual) Eosinophils % (Manual) Basophils % (Manual) Nucleated RBC % Seg Neutrophils # Seg Neutrophils # Man Lymphocytes # (Manual) Monocytes # (Manual) Eosinophils # (Manual) Fibrinogen dRVVT Confirm Interp Factor V Activity POC ABG pH POC ABG pCO2 24.7 L POC ABG pO2 152 H Sodium Potassium Chloride Carbon Dioxide BUN Creatinine Glucose POC Glucose 113 H Lactic Acid Calcium Phosphorus Magnesium Direct Bilirubin Troponin T C-Reactive Protein Total Protein Albumin Triglycerides Cholesterol LDL Cholesterol Direct HDL Cholesterol Urine WBC (Auto) Urine Creatinine Urine Total Protein Vancomycin Trough Rheumatoid Factor Complement C4 Crossmatch See Detail 09/25/16 09/25/16 09/25/16 12:05 17:44 23:47 WBC RBC Hgb Hct MCV MCH MCHC RDW Plt Count Lymph % (Auto) [place] % (Auto) Lymph # [place] # Seg Neutrophils % Seg Neuts % (Manual) Lymphocytes % (Manual) Monocytes % (Manual) Eosinophils % (Manual) Basophils % (Manual) Nucleated RBC % Seg Neutrophils # Seg Neutrophils # Man Lymphocytes # (Manual) Monocytes # (Manual) Eosinophils # (Manual) Fibrinogen dRVVT Confirm Interp Factor V Activity POC ABG pH POC ABG pCO2 POC ABG pO2 Sodium Potassium Chloride Carbon Dioxide BUN Creatinine Glucose POC Glucose 117 H 119 H 150 H Lactic Acid Calcium Phosphorus Magnesium Direct Bilirubin Troponin T C-Reactive Protein Total Protein Albumin Triglycerides Cholesterol LDL Cholesterol Direct HDL Cholesterol Urine WBC (Auto) Urine Creatinine Urine Total Protein Vancomycin Trough Rheumatoid Factor Complement C4 Crossmatch 09/26/16 09/26/16 09/26/16 04:25 04:25 04:25 WBC RBC 2.65 L Hgb 7.4 L Hct 21.6 L MCV MCH MCHC RDW 22.5 H Plt Count Lymph % (Auto) [place] % (Auto) Lymph # [place] # Seg Neutrophils % Seg Neuts % (Manual) Lymphocytes % (Manual) 6.0 L Monocytes % (Manual) Eosinophils % (Manual) 11.0 H Basophils % (Manual) Nucleated RBC % Seg Neutrophils # Seg Neutrophils # Man Lymphocytes # (Manual) 0.4 L Monocytes # (Manual) Eosinophils # (Manual) 0.6 H Fibrinogen dRVVT Confirm Interp Factor V Activity POC ABG pH POC ABG pCO2 POC ABG pO2 Sodium Potassium Chloride 97.0 L Carbon Dioxide 19 L BUN 43 H Creatinine 2.6 H Glucose 130 H POC Glucose Lactic Acid 4.40 H* Calcium 6.7 L Phosphorus Magnesium Direct Bilirubin Troponin T C-Reactive Protein Total Protein Albumin Triglycerides Cholesterol LDL Cholesterol Direct HDL Cholesterol Urine WBC (Auto) Urine Creatinine Urine Total Protein Vancomycin Trough Rheumatoid Factor Complement C4 Crossmatch 09/26/16 09/26/16 09/26/16 05:20 11:44 12:12 WBC RBC Hgb Hct MCV MCH MCHC RDW Plt Count Lymph % (Auto) [place] % (Auto) Lymph # [place] # Seg Neutrophils % Seg Neuts % (Manual) Lymphocytes % (Manual) Monocytes % (Manual) Eosinophils % (Manual) Basophils % (Manual) Nucleated RBC % Seg Neutrophils # Seg Neutrophils # Man Lymphocytes # (Manual) Monocytes # (Manual) Eosinophils # (Manual) Fibrinogen dRVVT Confirm Interp Factor V Activity POC ABG pH POC ABG pCO2 27.0 L POC ABG pO2 69 L Sodium Potassium Chloride Carbon Dioxide BUN Creatinine Glucose POC Glucose 121 H 128 H Lactic Acid Calcium Phosphorus Magnesium Direct Bilirubin Troponin T C-Reactive Protein Total Protein Albumin Triglycerides Cholesterol LDL Cholesterol Direct HDL Cholesterol Urine WBC (Auto) Urine Creatinine Urine Total Protein Vancomycin Trough Rheumatoid Factor Complement C4 Crossmatch 09/26/16 09/26/16 09/27/16 18:31 23:40 08:20 WBC RBC Hgb Hct MCV MCH MCHC RDW Plt Count Lymph % (Auto) [place] % (Auto) Lymph # [place] # Seg Neutrophils % Seg Neuts % (Manual) Lymphocytes % (Manual) Monocytes % (Manual) Eosinophils % (Manual) Basophils % (Manual) Nucleated RBC % Seg Neutrophils # Seg Neutrophils # Man Lymphocytes # (Manual) Monocytes # (Manual) Eosinophils # (Manual) Fibrinogen dRVVT Confirm Interp Factor V Activity POC ABG pH POC ABG pCO2 POC ABG pO2 Sodium Potassium Chloride Carbon Dioxide BUN Creatinine Glucose POC Glucose 120 H 133 H Lactic Acid 4.10 H* Calcium Phosphorus Magnesium Direct Bilirubin Troponin T C-Reactive Protein Total Protein Albumin Triglycerides Cholesterol LDL Cholesterol Direct HDL Cholesterol Urine WBC (Auto) Urine Creatinine Urine Total Protein Vancomycin Trough Rheumatoid Factor Complement C4 Crossmatch 09/27/16 09/27/16 09/27/16 11:23 15:00 18:15 WBC RBC Hgb Hct MCV MCH MCHC RDW Plt Count Lymph % (Auto) [place] % (Auto) Lymph # [place] # Seg Neutrophils % Seg Neuts % (Manual) Lymphocytes % (Manual) Monocytes % (Manual) Eosinophils % (Manual) Basophils % (Manual) Nucleated RBC % Seg Neutrophils # Seg Neutrophils # Man Lymphocytes # (Manual) Monocytes # (Manual) Eosinophils # (Manual) Fibrinogen dRVVT Confirm Interp Factor V Activity POC ABG pH 7.459 H POC ABG pCO2 27.1 L POC ABG pO2 140 H Sodium Potassium Chloride Carbon Dioxide BUN Creatinine Glucose POC Glucose 114 H 127 H Lactic Acid Calcium Phosphorus Magnesium Direct Bilirubin Troponin T C-Reactive Protein Total Protein Albumin Triglycerides Cholesterol LDL Cholesterol Direct HDL Cholesterol Urine WBC (Auto) Urine Creatinine Urine Total Protein Vancomycin Trough Rheumatoid Factor Complement C4 Crossmatch 09/27/16 09/27/16 09/28/16 Unknown Unknown 03:45 WBC RBC 2.49 L Hgb 6.8 L Hct 20.7 L MCV MCH 27 L MCHC RDW 22.1 H Plt Count Lymph % (Auto) [place] % (Auto) Lymph # [place] # Seg Neutrophils % Seg Neuts % (Manual) 32.0 L Lymphocytes % (Manual) 12.0 L Monocytes % (Manual) 11.0 H Eosinophils % (Manual) 10.0 H Basophils % (Manual) Nucleated RBC % Seg Neutrophils # Seg Neutrophils # Man Lymphocytes # (Manual) 1.0 L Monocytes # (Manual) 0.9 H Eosinophils # (Manual) 0.8 H Fibrinogen dRVVT Confirm Interp Factor V Activity POC ABG pH POC ABG pCO2 POC ABG pO2 Sodium 135 L 135 L Potassium 3.5 L Chloride 93.6 L 94.4 L Carbon Dioxide 17 L 21 L BUN 45 H 28 H Creatinine 3.3 H 2.5 H Glucose 106 H POC Glucose Lactic Acid Calcium 7.3 L 7.1 L Phosphorus Magnesium Direct Bilirubin Troponin T C-Reactive Protein Total Protein Albumin Triglycerides Cholesterol LDL Cholesterol Direct HDL Cholesterol Urine WBC (Auto) Urine Creatinine Urine Total Protein Vancomycin Trough Rheumatoid Factor Complement C4 Crossmatch 09/28/16 09/28/16 09/28/16 03:45 07:25 11:58 WBC 13.3 H RBC 3.01 L Hgb 8.4 L Hct 25.0 L MCV MCH MCHC RDW 20.5 H Plt Count 128 L Lymph % (Auto) [place] % (Auto) Lymph # [place] # Seg Neutrophils % Seg Neuts % (Manual) Lymphocytes % (Manual) 7.0 L Monocytes % (Manual) Eosinophils % (Manual) 6.0 H Basophils % (Manual) Nucleated RBC % Seg Neutrophils # Seg Neutrophils # Man Lymphocytes # (Manual) 0.9 L Monocytes # (Manual) Eosinophils # (Manual) 0.8 H Fibrinogen dRVVT Confirm Interp Factor V Activity POC ABG pH POC ABG pCO2 POC ABG pO2 Sodium Potassium Chloride Carbon Dioxide BUN Creatinine Glucose POC Glucose 121 H Lactic Acid 4.50 H* Calcium Phosphorus Magnesium Direct Bilirubin Troponin T C-Reactive Protein Total Protein Albumin Triglycerides Cholesterol LDL Cholesterol Direct HDL Cholesterol Urine WBC (Auto) Urine Creatinine Urine Total Protein Vancomycin Trough Rheumatoid Factor Complement C4 Crossmatch 09/29/16 09/29/16 09/29/16 06:45 06:45 06:45 WBC 14.9 H RBC 2.74 L Hgb 7.6 L Hct 23.2 L MCV MCH MCHC RDW 20.5 H Plt Count 81 L Lymph % (Auto) [place] % (Auto) Lymph # [place] # Seg Neutrophils % Seg Neuts % (Manual) 81.0 H Lymphocytes % (Manual) 4.0 L Monocytes % (Manual) Eosinophils % (Manual) Basophils % (Manual) Nucleated RBC % Seg Neutrophils # Seg Neutrophils # Man 12.1 H Lymphocytes # (Manual) 0.6 L Monocytes # (Manual) Eosinophils # (Manual) Fibrinogen dRVVT Confirm Interp Factor V Activity POC ABG pH POC ABG pCO2 POC ABG pO2 Sodium 133 L Potassium 3.4 L Chloride 92.5 L Carbon Dioxide 21 L BUN 33 H Creatinine 3.0 H Glucose POC Glucose Lactic Acid Calcium 6.6 L Phosphorus Magnesium 1.40 L Direct Bilirubin 0.9 H Troponin T C-Reactive Protein Total Protein 4.3 L Albumin 1.3 L Triglycerides Cholesterol LDL Cholesterol Direct HDL Cholesterol Urine WBC (Auto) Urine Creatinine Urine Total Protein Vancomycin Trough Rheumatoid Factor Complement C4 Crossmatch 09/29/16 09/29/16 09/30/16 17:52 20:12 00:07 WBC RBC Hgb Hct MCV MCH MCHC RDW Plt Count Lymph % (Auto) [place] % (Auto) Lymph # [place] # Seg Neutrophils % Seg Neuts % (Manual) Lymphocytes % (Manual) Monocytes % (Manual) Eosinophils % (Manual) Basophils % (Manual) Nucleated RBC % Seg Neutrophils # Seg Neutrophils # Man Lymphocytes # (Manual) Monocytes # (Manual) Eosinophils # (Manual) Fibrinogen dRVVT Confirm Interp Factor V Activity POC ABG pH POC ABG pCO2 POC ABG pO2 Sodium Potassium Chloride Carbon Dioxide BUN Creatinine Glucose POC Glucose 50 L 51 L Lactic Acid Calcium Phosphorus Magnesium Direct Bilirubin Troponin T 0.204 H* C-Reactive Protein Total Protein Albumin Triglycerides Cholesterol 31 L LDL Cholesterol Direct 4 L HDL Cholesterol 3 L Urine WBC (Auto) Urine Creatinine Urine Total Protein Vancomycin Trough Rheumatoid Factor Complement C4 Crossmatch 09/30/16 09/30/16 09/30/16 01:30 05:15 06:10 WBC RBC Hgb Hct MCV MCH MCHC RDW Plt Count Lymph % (Auto) [place] % (Auto) Lymph # [place] # Seg Neutrophils % Seg Neuts % (Manual) Lymphocytes % (Manual) Monocytes % (Manual) Eosinophils % (Manual) Basophils % (Manual) Nucleated RBC % Seg Neutrophils # Seg Neutrophils # Man Lymphocytes # (Manual) Monocytes # (Manual) Eosinophils # (Manual) Fibrinogen dRVVT Confirm Interp Factor V Activity POC ABG pH POC ABG pCO2 POC ABG pO2 Sodium 133 L Potassium 3.2 L Chloride 93.2 L Carbon Dioxide 19 L BUN 36 H Creatinine 3.2 H Glucose 104 H POC Glucose 167 H 146 H Lactic Acid Calcium 6.4 L Phosphorus Magnesium 1.60 L Direct Bilirubin Troponin T C-Reactive Protein Total Protein Albumin Triglycerides Cholesterol LDL Cholesterol Direct HDL Cholesterol Urine WBC (Auto) Urine Creatinine Urine Total Protein Vancomycin Trough Rheumatoid Factor Complement C4 Crossmatch 09/30/16 09/30/16 09/30/16 11:26 13:39 18:38 WBC RBC Hgb Hct MCV MCH MCHC RDW Plt Count Lymph % (Auto) [place] % (Auto) Lymph # [place] # Seg Neutrophils % Seg Neuts % (Manual) Lymphocytes % (Manual) Monocytes % (Manual) Eosinophils % (Manual) Basophils % (Manual) Nucleated RBC % Seg Neutrophils # Seg Neutrophils # Man Lymphocytes # (Manual) Monocytes # (Manual) Eosinophils # (Manual) Fibrinogen dRVVT Confirm Interp Factor V Activity POC ABG pH 7.479 H POC ABG pCO2 29.8 L POC ABG pO2 117 H Sodium Potassium Chloride Carbon Dioxide BUN Creatinine Glucose POC Glucose 140 H 122 H Lactic Acid Calcium Phosphorus Magnesium Direct Bilirubin Troponin T C-Reactive Protein Total Protein Albumin Triglycerides Cholesterol LDL Cholesterol Direct HDL Cholesterol Urine WBC (Auto) Urine Creatinine Urine Total Protein Vancomycin Trough Rheumatoid Factor Complement C4 Crossmatch 10/01/16 10/01/16 10/01/16 06:00 06:00 12:37 WBC 12.6 H RBC 2.75 L Hgb 7.3 L Hct 23.3 L MCV MCH 27 L MCHC RDW 20.6 H Plt Count 72 L Lymph % (Auto) [place] % (Auto) Lymph # [place] # Seg Neutrophils % Seg Neuts % (Manual) 31.0 L Lymphocytes % (Manual) 8.0 L Monocytes % (Manual) Eosinophils % (Manual) Basophils % (Manual) Nucleated RBC % 3.0 H Seg Neutrophils # Seg Neutrophils # Man Lymphocytes # (Manual) 1.0 L Monocytes # (Manual) Eosinophils # (Manual) Fibrinogen dRVVT Confirm Interp Factor V Activity POC ABG pH POC ABG pCO2 POC ABG pO2 Sodium 127 L Potassium Chloride 86.8 L Carbon Dioxide 20 L BUN 42 H Creatinine 3.5 H Glucose POC Glucose 65 L Lactic Acid Calcium 7.0 L Phosphorus Magnesium Direct Bilirubin Troponin T C-Reactive Protein Total Protein Albumin Triglycerides Cholesterol LDL Cholesterol Direct HDL Cholesterol Urine WBC (Auto) Urine Creatinine Urine Total Protein Vancomycin Trough Rheumatoid Factor Complement C4 Crossmatch 10/01/16 10/01/16 10/02/16 17:39 23:32 00:59 WBC RBC Hgb Hct MCV MCH MCHC RDW Plt Count Lymph % (Auto) [place] % (Auto) Lymph # [place] # Seg Neutrophils % Seg Neuts % (Manual) Lymphocytes % (Manual) Monocytes % (Manual) Eosinophils % (Manual) Basophils % (Manual) Nucleated RBC % Seg Neutrophils # Seg Neutrophils # Man Lymphocytes # (Manual) Monocytes # (Manual) Eosinophils # (Manual) Fibrinogen dRVVT Confirm Interp Factor V Activity POC ABG pH POC ABG pCO2 POC ABG pO2 Sodium Potassium Chloride Carbon Dioxide BUN Creatinine Glucose POC Glucose 107 H 52 L 145 H Lactic Acid Calcium Phosphorus Magnesium Direct Bilirubin Troponin T C-Reactive Protein Total Protein Albumin Triglycerides Cholesterol LDL Cholesterol Direct HDL Cholesterol Urine WBC (Auto) Urine Creatinine Urine Total Protein Vancomycin Trough Rheumatoid Factor Complement C4 Crossmatch 10/02/16 10/02/16 10/02/16 10:30 10:50 10:50 WBC 14.7 H RBC 2.76 L Hgb 7.4 L Hct 23.6 L MCV MCH 27 L MCHC RDW 20.2 H Plt Count 79 L Lymph % (Auto) [place] % (Auto) Lymph # [place] # Seg Neutrophils % Seg Neuts % (Manual) 86.0 H Lymphocytes % (Manual) 6.0 L Monocytes % (Manual) Eosinophils % (Manual) Basophils % (Manual) Nucleated RBC % Seg Neutrophils # Seg Neutrophils # Man 12.6 H Lymphocytes # (Manual) 0.9 L Monocytes # (Manual) Eosinophils # (Manual) Fibrinogen dRVVT Confirm Interp Factor V Activity POC ABG pH 7.486 H POC ABG pCO2 30.1 L POC ABG pO2 108 H Sodium 131 L Potassium 3.4 L Chloride 89.9 L Carbon Dioxide BUN 26 H Creatinine 2.6 H Glucose POC Glucose Lactic Acid Calcium 7.0 L Phosphorus Magnesium Direct Bilirubin Troponin T C-Reactive Protein Total Protein Albumin Triglycerides Cholesterol LDL Cholesterol Direct HDL Cholesterol Urine WBC (Auto) Urine Creatinine Urine Total Protein Vancomycin Trough Rheumatoid Factor Complement C4 Crossmatch 10/02/16 10/03/16 10/03/16 23:45 00:45 05:10 WBC 12.9 H RBC 2.77 L Hgb 7.6 L Hct 23.7 L MCV MCH 27 L MCHC RDW 19.7 H Plt Count 89 L Lymph % (Auto) [place] % (Auto) Lymph # [place] # Seg Neutrophils % Seg Neuts % (Manual) Lymphocytes % (Manual) 8.0 L Monocytes % (Manual) Eosinophils % (Manual) Basophils % (Manual) Nucleated RBC % Seg Neutrophils # 11.9 H Seg Neutrophils # Man Lymphocytes # (Manual) 1.0 L Monocytes # (Manual) Eosinophils # (Manual) Fibrinogen dRVVT Confirm Interp Factor V Activity POC ABG pH POC ABG pCO2 POC ABG pO2 Sodium Potassium Chloride Carbon Dioxide BUN Creatinine Glucose POC Glucose 55 L 199 H Lactic Acid Calcium Phosphorus Magnesium Direct Bilirubin Troponin T C-Reactive Protein Total Protein Albumin Triglycerides Cholesterol LDL Cholesterol Direct HDL Cholesterol Urine WBC (Auto) Urine Creatinine Urine Total Protein Vancomycin Trough Rheumatoid Factor Complement C4 Crossmatch 10/03/16 10/03/16 10/03/16 05:10 12:14 13:18 WBC RBC Hgb Hct MCV MCH MCHC RDW Plt Count Lymph % (Auto) [place] % (Auto) Lymph # [place] # Seg Neutrophils % Seg Neuts % (Manual) Lymphocytes % (Manual) Monocytes % (Manual) Eosinophils % (Manual) Basophils % (Manual) Nucleated RBC % Seg Neutrophils # Seg Neutrophils # Man Lymphocytes # (Manual) Monocytes # (Manual) Eosinophils # (Manual) Fibrinogen dRVVT Confirm Interp Factor V Activity POC ABG pH POC ABG pCO2 POC ABG pO2 Sodium 129 L Potassium 3.3 L Chloride 88.8 L Carbon Dioxide 20 L BUN 29 H Creatinine 2.8 H Glucose POC Glucose 68 L 127 H Lactic Acid Calcium 7.2 L Phosphorus Magnesium Direct Bilirubin Troponin T C-Reactive Protein Total Protein Albumin Triglycerides Cholesterol LDL Cholesterol Direct HDL Cholesterol Urine WBC (Auto) Urine Creatinine Urine Total Protein Vancomycin Trough Rheumatoid Factor Complement C4 Crossmatch 10/03/16 10/03/16 10/03/16 14:42 18:21 19:09 WBC RBC Hgb Hct MCV MCH MCHC RDW Plt Count Lymph % (Auto) [place] % (Auto) Lymph # [place] # Seg Neutrophils % Seg Neuts % (Manual) Lymphocytes % (Manual) Monocytes % (Manual) Eosinophils % (Manual) Basophils % (Manual) Nucleated RBC % Seg Neutrophils # Seg Neutrophils # Man Lymphocytes # (Manual) Monocytes # (Manual) Eosinophils # (Manual) Fibrinogen dRVVT Confirm Interp Factor V Activity POC ABG pH 7.499 H POC ABG pCO2 28.4 L POC ABG pO2 44 L Sodium Potassium Chloride Carbon Dioxide BUN Creatinine Glucose POC Glucose 64 L 205 H Lactic Acid Calcium Phosphorus Magnesium Direct Bilirubin Troponin T C-Reactive Protein Total Protein Albumin Triglycerides Cholesterol LDL Cholesterol Direct HDL Cholesterol Urine WBC (Auto) Urine Creatinine Urine Total Protein Vancomycin Trough Rheumatoid Factor Complement C4 Crossmatch 10/03/16 10/04/16 10/04/16 23:33 04:18 06:30 WBC RBC 2.54 L Hgb 7.1 L Hct 21.7 L MCV MCH MCHC RDW 19.5 H Plt Count 76 L Lymph % (Auto) [place] % (Auto) Lymph # [place] # Seg Neutrophils % Seg Neuts % (Manual) 88.0 H Lymphocytes % (Manual) 6.0 L Monocytes % (Manual) Eosinophils % (Manual) Basophils % (Manual) Nucleated RBC % Seg Neutrophils # Seg Neutrophils # Man 8.8 H Lymphocytes # (Manual) 0.6 L Monocytes # (Manual) Eosinophils # (Manual) Fibrinogen dRVVT Confirm Interp Factor V Activity POC ABG pH 7.461 H POC ABG pCO2 33.6 L POC ABG pO2 211 H Sodium Potassium Chloride Carbon Dioxide BUN Creatinine Glucose POC Glucose 136 H Lactic Acid Calcium Phosphorus Magnesium Direct Bilirubin Troponin T C-Reactive Protein Total Protein Albumin Triglycerides Cholesterol LDL Cholesterol Direct HDL Cholesterol Urine WBC (Auto) Urine Creatinine Urine Total Protein Vancomycin Trough Rheumatoid Factor Complement C4 Crossmatch 10/04/16 06:30 WBC RBC Hgb Hct MCV MCH MCHC RDW Plt Count Lymph % (Auto) [place] % (Auto) Lymph # [place] # Seg Neutrophils % Seg Neuts % (Manual) Lymphocytes % (Manual) Monocytes % (Manual) Eosinophils % (Manual) Basophils % (Manual) Nucleated RBC % Seg Neutrophils # Seg Neutrophils # Man Lymphocytes # (Manual) Monocytes # (Manual) Eosinophils # (Manual) Fibrinogen dRVVT Confirm Interp Factor V Activity POC ABG pH POC ABG pCO2 POC ABG pO2 Sodium 128 L Potassium Chloride 87.4 L Carbon Dioxide 20 L BUN 34 H Creatinine 2.9 H Glucose 127 H POC Glucose Lactic Acid Calcium 7.4 L Phosphorus Magnesium Direct Bilirubin Troponin T C-Reactive Protein Total Protein Albumin Triglycerides Cholesterol LDL Cholesterol Direct HDL Cholesterol Urine WBC (Auto) Urine Creatinine Urine Total Protein Vancomycin Trough Rheumatoid Factor Complement C4 Crossmatch Allied health notes reviewed: RT
--- NOTE | 2016-10-04 11:21 | Progress Note ---
Assessment and Plan Acute hypoxic respiratory failure on mechanical ventilation s/p trach and PEG Acute left MCA CVA echocardiogram demonstrates at least moderate LVH but a normal LV systolic function, EF 50-55%. no thrombus visualized on transthoracic echocardiogram. Hypertension was hypotensive Acute on chronic renal failure Fungemia Diabetes mellitus Anemia requiring transfusion of PRBCs Thrombocytopenia Hyponatremia Paroxysmal Afib currently in sinus rhythm s/p failed cardioversion on 09/25 on amiodarone drip and IV digoxin Continue medical therapy and conservative cardiac management. Subjective Date of service: 10/04/16 Principal diagnosis: Acute resp failure on MVS; S/P Acute CVA; Acute Encephalopathy; JUANITA Interval history: No acute cardiac events overnight. Objective Vital Signs Temp Pulse Pulse Resp BP Pulse Ox Pulse Ox 10/04/16 08:26 97 H 129/70 100 10/04/16 08:00 98 F 96 H 30 H 129/70 100 10/04/16 07:31 93 H 31 H 131/77 98 10/04/16 07:00 107 H 35 H 131/77 100 10/04/16 06:31 109 H 31 H 134/72 94 10/04/16 06:00 94 H 25 H 134/72 98 10/04/16 05:31 92 H 19 133/67 100 10/04/16 05:00 92 H 22 133/67 100 10/04/16 04:31 95 H 24 151/79 100 10/04/16 04:20 21 100 10/04/16 04:18 94 H 151/79 100 10/04/16 04:00 99.2 F 97 H 24 151/79 100 10/04/16 03:31 93 H 24 143/74 100 10/04/16 03:00 93 H 25 H 143/74 100 10/04/16 02:31 94 H 25 H 137/73 100 10/04/16 02:00 94 H 19 137/73 100 10/04/16 01:31 94 H 25 H 139/74 100 10/04/16 01:00 95 H 24 139/74 100 10/04/16 00:33 99 10/04/16 00:31 95 H 25 H 129/77 100 10/04/16 00:00 99 H 25 H 129/77 100 10/03/16 23:57 99 F 10/03/16 23:33 100 10/03/16 23:31 112 H 27 H 108/57 100 10/03/16 23:30 103 H 108/57 100 10/03/16 23:00 100 H 26 H 108/57 100 10/03/16 22:42 105 H 25 H 109/71 100 10/03/16 22:31 114 H 16 109/71 100 10/03/16 22:00 104 H 26 H 109/71 100 10/03/16 21:31 104 H 28 H 103/64 100 10/03/16 21:01 105 H 26 H 103/64 100 10/03/16 20:31 107 H 25 H 90/60 100 10/03/16 20:00 99.2 F 108 H 27 H 90/60 100 10/03/16 19:30 112 H 27 H 95/55 100 10/03/16 19:17 117 H 111/62 100 10/03/16 19:00 113 H 30 H 109/62 100 10/03/16 18:30 95 H 21 125/68 100 10/03/16 18:01 99 H 23 162/89 100 10/03/16 17:30 89 24 103/59 100 10/03/16 17:00 90 21 100/54 100 10/03/16 16:51 97 10/03/16 16:49 90 120/67 100 10/03/16 16:30 92 H 24 112/59 100 10/03/16 16:00 97.9 F 92 H 25 H 97/54 91 10/03/16 15:30 93 H 22 100/60 100 10/03/16 15:07 28 H 99 10/03/16 15:00 92 H 24 112/61 100 10/03/16 14:45 95 H 110/63 97 10/03/16 14:42 95 H 110/63 86 10/03/16 14:30 94 H 26 H 110/63 99 10/03/16 14:00 94 H 25 H 98/62 98 10/03/16 13:30 97 H 28 H 114/57 100 10/03/16 13:00 119 H 26 H 104/71 99 10/03/16 12:30 95 H 22 112/56 100 10/03/16 12:10 92 H 111/61 100 10/03/16 12:00 98.0 F 93 H 111 H 27 H 111/61 98 10/03/16 11:31 94 H 92/64 100 - Physical Examination General: Other (intubated via trach) Cardiac: Positive: Reg Rate and Rhythm - Labs and Meds CBC 10/04/16 Range/Units 06:30 WBC 10.0 (4.5-11.0) K/mm3 RBC 2.54 L (3.65-5.03) M/mm3 Hgb 7.1 L (10.1-14.3) gm/dl Hct 21.7 L (30.3-42.9) % Plt Count 76 L (140-440) K/mm3 Comprehensive Metabolic Panel 10/04/16 Range/Units 06:30 Sodium 128 L (137-145) mmol/L Potassium 3.6 (3.6-5.0) mmol/L Chloride 87.4 L (98-107) mmol/L Carbon Dioxide 20 L (22-30) mmol/L BUN 34 H (7-17) mg/dL Creatinine 2.9 H (0.7-1.2) mg/dL Glucose 127 H (65-100) mg/dL Calcium 7.4 L (8.4-10.2) mg/dL - Imaging and Cardiology EKG: image reviewed - Allied health notes Allied health notes reviewed: RT
[2016-10-04] MEDS: ASPIRIN PO SCH (12:19)
[2016-10-04] MEDS: HEPARIN IV PRN (14:34)
[2016-10-04] MEDS ORDERED: NACL 0.9% 500 ML IR ONE ×2 (15:05→15:50)
[2016-10-04] MEDS ORDERED: XYLOCAINE 2% INFILTRATI ONE (15:05)
[2016-10-04] MEDS ORDERED: ANCEF/STERILE WATER 2 GM/20 ML 0 GM/0 ML SYRINGE IV ONE (15:06)
--- NOTE | 2016-10-04 16:20 | Post Operative Note ---
Pre-op diagnosis: Dislodged G Tube Post-op diagnosis: same Findings: Unable to recannulate gastric lumen percutaneously Procedure: Attempted G to GJ conversion Anesthesia: none Surgeon: ALIDA LIMA Estimated blood loss: none Pathology: none Condition: stable Disposition: ICU
--- NOTE | 2016-10-04 17:32 | Progress Note ---
Assessment and Plan Assessment and plan: --Malfunctioning PEG tube; GI and interventional radiologists evaluating the patient Follow the recommendations --Acute hypoxic respiratory failure vent dependent/unable to wean s/p trach and PEG, continue PEG feeds --Acute large left MCA CVA status post TPA/encephalopathy, Aspirin/statin/ supportive care --Hyponatremia; mild improvement, closely monitor Dialysis is scheduled for today, nephrology following --Hypokalemia; replace per protocol and monitor levels --Paroxysmal A. fib, persistent RVR ,on amiodarone drip, Cardiology following --Chronic anticoagulation need to be started per cardiology, will consult neurology for recommendations --Anemia, status post multiple units of PRBC transfusion, closely monitor H&H and transfuse as needed --Hypotension/ septic shock on pressors, titrate systolic blood pressures to more than 100 --Acute on chronic kidney disease stage III , worsening renal function , nephrology following Hemodialysis as needed --Aspiration pneumonia, Continue vancomycin and Flagyl, ID following --Acute exacerbation of COPD;, Nebulizers tapering dose of steroids antibiotics and ventilatory support, pulmonary following --Anemia requiring blood transfusion; closely monitor H&H and transfuse as needed --2 diabetes mellitus; Accu-Chek sliding scale coverage and ADA diet and insulin as needed --Moderate to severe protein calorie malnutrition with albumin of 2.2, Nutritional supplements, tube feeding, supportive care --DVT prophylaxis with heparin --Full CODE STATUS I talked to son and the brother periodically and updated patient's condition and treatment plan They are aware of patient's poor prognosis Malfunctioning G-tube, going for exchange Disposition: Continue ICU care, [facility] has accepted once off drips History Interval history: Patient seen and examined. Follow up on current diagnosis/respiratory failure. Still intubated, sedated. Imaging, old records, testing, labs, nursing notes reviewed. Hospitalist Physical - Physical exam Narrative exam: GEN: Ill appearing, trach, vegetative state HEENT: Occasional facial movement NECK: SUPPLE, trach in place CVS: Tachycardic irregular irregular NORMAL S1S2 LUNGS/CHEST: NORMAL CHEST EXPANSION B, GOOD AIR ENTRY B ABD: SOFT, NTND, PEG in Place malfunctioning GBS, NO REBOUND OR GUARDING EXT/SKIN: NO SIGNIFICANT EDEMA OR RASH MSK: FROM X 4 EXTREMITIES NEURO: CN 2-12 GROSSLY INTACT, on a ventilator PSY: Comatose, - Constitutional Vitals: Temp Pulse Resp BP Pulse Ox 97.7 F 118 H 25 H 138/80 98 10/04/16 14:30 10/04/16 16:25 10/04/16 14:30 10/04/16 16:25 10/04/16 16:25 General appearance: Present: no acute distress, obese, other (on vent, non- responsive) Results - Labs CBC & Chem 7: 10/04/16 06:30 10/04/16 06:30 Labs: Laboratory Last Values WBC 10.0 K/mm3 (4.5-11.0) 10/04/16 06:30 RBC 2.54 M/mm3 (3.65-5.03) L 10/04/16 06:30 Hgb 7.1 gm/dl (10.1-14.3) L 10/04/16 06:30 Hct 21.7 % (30.3-42.9) L 10/04/16 06:30 MCV 86 fl (79-97) 10/04/16 06:30 MCH 28 pg (28-32) 10/04/16 06:30 MCHC 33 % (30-34) 10/04/16 06:30 RDW 19.5 % (13.2-15.2) H 10/04/16 06:30 Plt Count 76 K/mm3 (140-440) L 10/04/16 06:30 Lymph % (Auto) 6.9 % (13.4-35.0) L 09/21/16 07:45 [place] % (Auto) 0.5 % (0.0-7.3) 10/03/16 05:10 Eos % (Auto) 1.3 % (0.0-4.3) 10/03/16 05:10 Baso % (Auto) 0.2 % (0.0-1.8) 09/21/16 07:45 Lymph # 0.9 K/mm3 (1.2-5.4) L 09/21/16 07:45 [place] # 0.1 K/mm3 (0.0-0.8) 10/03/16 05:10 Eos # 0.2 K/mm3 (0.0-0.4) 10/03/16 05:10 Baso # 0.0 K/mm3 (0.0-0.1) 10/03/16 05:10 Add Manual Diff Complete 10/04/16 06:30 Total Counted 100 10/04/16 06:30 Seg Neutrophils % Counsel 10/03/16 05:10 Seg Neuts % (Manual) 88.0 % (40.0-70.0) H 10/04/16 06:30 Band Neutrophils % 1.0 % 10/04/16 06:30 Lymphocytes % (Manual) 6.0 % (13.4-35.0) L 10/04/16 06:30 Reactive Lymphs % (Man) 0 % 10/04/16 06:30 Monocytes % (Manual) 5.0 % (0.0-7.3) 10/04/16 06:30 Eosinophils % (Manual) 0 % (0.0-4.3) 10/04/16 06:30 Basophils % (Manual) 0 % (0.0-1.8) 10/04/16 06:30 Metamyelocytes % 0 % 10/04/16 06:30 Myelocytes % 0 % 10/04/16 06:30 Promyelocytes % 0 % 10/04/16 06:30 Blast Cells % 0 % 10/04/16 06:30 Nucleated RBC % Not Reportable 10/04/16 06:30 Seg Neutrophils # 11.9 K/mm3 (1.8-7.7) H 10/03/16 05:10 Seg Neutrophils # Man 8.8 K/mm3 (1.8-7.7) H 10/04/16 06:30 Band Neutrophils # 0.1 K/mm3 10/04/16 06:30 Lymphocytes # (Manual) 0.6 K/mm3 (1.2-5.4) L 10/04/16 06:30 Abs React Lymphs (Man) 0.0 K/mm3 10/04/16 06:30 Monocytes # (Manual) 0.5 K/mm3 (0.0-0.8) 10/04/16 06:30 Eosinophils # (Manual) 0.0 K/mm3 (0.0-0.4) 10/04/16 06:30 Basophils # (Manual) 0.0 K/mm3 (0.0-0.1) 10/04/16 06:30 Metamyelocytes # 0.0 K/mm3 10/04/16 06:30 Myelocytes # 0.0 K/mm3 10/04/16 06:30 Promyelocytes # 0.0 K/mm3 10/04/16 06:30 Blast Cells # 0.0 K/mm3 10/04/16 06:30 Pathologist Review 09/13/16 04:00 WBC Morphology Not Reportable 10/04/16 06:30 Hypersegmented Neuts Not Reportable 10/04/16 06:30 Hyposegmented Neuts Not Reportable 10/04/16 06:30 Hypogranular Neuts Not Reportable 10/04/16 06:30 Smudge Cells Not Reportable 10/04/16 06:30 Toxic Granulation Not Reportable 10/04/16 06:30 Toxic Vacuolation Not Reportable 10/04/16 06:30 Dohle Bodies 1+ 10/04/16 06:30 Pelger-Huet Anomaly Not Reportable 10/04/16 06:30 Jasmina Rods Not Reportable 10/04/16 06:30 Platelet Estimate Consistent w auto 10/04/16 06:30 Clumped Platelets Not Reportable 10/04/16 06:30 Plt Clumps, EDTA Not Reportable 10/04/16 06:30 Large Platelets Not Reportable 10/04/16 06:30 Giant Platelets Not Reportable 10/04/16 06:30 Platelet Satelliting Not Reportable 10/04/16 06:30 Plt Morphology Comment Not Reportable 10/04/16 06:30 RBC Morphology Not Reportable 10/04/16 06:30 Dimorphic RBCs Not Reportable 10/04/16 06:30 Polychromasia Not Reportable 10/04/16 06:30 Hypochromasia Not Reportable 10/04/16 06:30 Poikilocytosis Not Reportable 10/04/16 06:30 Anisocytosis 1+ 10/04/16 06:30 Microcytosis Not Reportable 10/04/16 06:30 Macrocytosis Not Reportable 10/04/16 06:30 Spherocytes Not Reportable 10/04/16 06:30 Pappenheimer Bodies Not Reportable 10/04/16 06:30 Sickle Cells Not Reportable 10/04/16 06:30 Target Cells Not Reportable 10/04/16 06:30 Tear Drop Cells Not Reportable 10/04/16 06:30 Ovalocytes Not Reportable 10/04/16 06:30 Stomatocytes 1+ 10/04/16 06:30 Helmet Cells Not Reportable 10/04/16 06:30 [place] Bodies Not Reportable 10/04/16 06:30 [place] Rings Not Reportable 10/04/16 06:30 Chuck Cells Not Reportable 10/04/16 06:30 Bite Cells Not Reportable 10/04/16 06:30 Crenated Cell Not Reportable 10/04/16 06:30 Elliptocytes Not Reportable 10/04/16 06:30 Acanthocytes (Spur) Not Reportable 10/04/16 06:30 Rouleaux Not Reportable 10/04/16 06:30 Hemoglobin C Crystals Not Reportable 10/04/16 06:30 Schistocytes Not Reportable 10/04/16 06:30 Malaria parasites Not Reportable 10/04/16 06:30 ESR > 140.0 mm/Hr (0-20) 09/08/16 11:48 Jun Bodies Not Reportable 10/04/16 06:30 Hem Pathologist Commnt No 10/04/16 06:30 PT 13.8 Sec. (12.2-14.9) 09/15/16 05:00 INR 1.01 (0.87-1.13) 09/15/16 05:00 APTT 24.4 Sec. (24.2-36.6) 09/15/16 05:00 Thrombin Time 16.8 Sec. (15.1-19.6) 09/03/16 00:10 Fibrinogen 750 mg/dl (211-480) H 09/08/16 11:48 Lupus Anticoagulant see below 09/12/16 09:59 LA PTT Baseline See scanned report 09/12/16 09:59 dRVVT Confirm Interp Positive (Negative) H 09/12/16 09:59 dRVVT Screen 50:50 See scanned report 09/12/16 09:59 dRVVT Mix Interpret See scanned report 09/12/16 09:59 Protein C Antigen 122 % (70-140) 09/08/16 15:35 Free Protein S 97 % normal (50-147) 09/08/16 15:35 Total Protein S 109 % (70-140) 09/08/16 15:35 Antithrombin III Ag 100 % (80-120) 09/08/16 15:35 Heparin Anti-Xa, Unfract Negative (Negative) 09/29/16 13:35 Factor V Activity 182 % (65-150) H 09/08/16 15:35 POC ABG pH 7.461 (7.35-7.45) H 10/04/16 04:18 POC ABG pCO2 33.6 (35-45) L 10/04/16 04:18 POC ABG pO2 211 (80-105) H 10/04/16 04:18 POC ABG HCO3 24.0 10/04/16 04:18 POC ABG Total CO2 25 10/04/16 04:18 POC ABG O2 Sat 100 10/04/16 04:18 POC ABG Base Excess 0 10/04/16 04:18 FiO2 45 % 10/04/16 04:18 Sodium 128 mmol/L (137-145) L 10/04/16 06:30 Potassium 3.6 mmol/L (3.6-5.0) 10/04/16 06:30 Chloride 87.4 mmol/L (98-107) L 10/04/16 06:30 Carbon Dioxide 20 mmol/L (22-30) L 10/04/16 06:30 Anion Gap 24 mmol/L 10/04/16 06:30 BUN 34 mg/dL (7-17) H 10/04/16 06:30 Creatinine 2.9 mg/dL (0.7-1.2) H 10/04/16 06:30 Estimated GFR 21 ml/min 10/04/16 06:30 BUN/Creatinine Ratio 11.72 % 10/04/16 06:30 Glucose 127 mg/dL (65-100) H 10/04/16 06:30 POC Glucose 158 (70-105) H 10/04/16 11:45 Osmolality 351 Mosm/kg 09/16/16 11:47 Lactic Acid 4.50 mmol/L (0.7-2.0) H* 09/28/16 07:25 Calcium 7.4 mg/dL (8.4-10.2) L 10/04/16 06:30 Phosphorus 3.80 mg/dL (2.5-4.5) 10/04/16 06:30 Magnesium 1.90 mg/dL (1.7-2.3) 10/04/16 06:30 Total Bilirubin 1.20 mg/dL (0.1-1.2) 09/29/16 06:45 Direct Bilirubin 0.9 mg/dL (0-0.2) H 09/29/16 06:45 Indirect Bilirubin 0.3 mg/dL 09/29/16 06:45 AST 24 units/L (5-40) 09/29/16 06:45 ALT 16 units/L (7-56) 09/29/16 06:45 Alkaline Phosphatase 72 units/L (35-129) 09/29/16 06:45 Ammonia 27.0 umol/L (25-60) 09/07/16 08:37 Total Creatine Kinase 121 units/L (30-135) 09/29/16 20:12 CK-MB (CK-2) < 1.0 ng/mL (0.0-4.0) 09/29/16 20:12 CK-MB (CK-2) Rel Index 0.8 (0-4) 09/29/16 20:12 Troponin T 0.204 ng/mL (0.00-0.029) H* 09/29/16 20:12 C-Reactive Protein 3.20 mg/dL (0.00-1.30) H 09/23/16 05:00 Total Protein 4.3 g/dL (6.3-8.2) L 09/29/16 06:45 Albumin 1.3 g/dL (3.9-5) L 09/29/16 06:45 Albumin/Globulin Ratio 0.4 % 09/29/16 06:45 Triglycerides 137 mg/dL (2-149) 09/29/16 20:12 Cholesterol 31 mg/dL (50-199) L 09/29/16 20:12 LDL Cholesterol Direct 4 mg/dL (50-130) L 09/29/16 20:12 HDL Cholesterol 3 mg/dL (40-59) L 09/29/16 20:12 Cholesterol/HDL Ratio 10.33 % 09/29/16 20:12 Angiotensin Convert Enz See scanned report 09/08/16 11:48 TSH 1.010 mlU/mL (0.270-4.200) 09/07/16 08:37 HCG, Qual Negative (Negative) 09/03/16 00:10 Urine Color Yellow (Yellow) 09/09/16 14:13 Urine Turbidity Slightly-cloudy (Clear) 09/09/16 14:13 Urine pH 5.0 (5.0-7.0) 09/09/16 14:13 Ur Specific [place] 1.012 (1.003-1.030) 09/09/16 14:13 Urine Protein 30 mg/dl mg/dL (Negative) 09/09/16 14:13 Urine Glucose (UA) Neg mg/dL (Negative) 09/09/16 14:13 Urine Ketones Neg mg/dL (Negative) 09/09/16 14:13 Urine Blood Lg (Negative) 09/09/16 14:13 Urine Nitrite Neg (Negative) 09/09/16 14:13 Urine Bilirubin Neg (Negative) 09/09/16 14:13 Urine Urobilinogen < 2.0 mg/dL (<2.0) 09/09/16 14:13 Ur Leukocyte Esterase Sm (Negative) 09/09/16 14:13 Urine WBC (Auto) 25.0 /HPF (0.0-6.0) H 09/09/16 14:13 Urine RBC (Auto) > 182.0 /HPF (0.0-6.0) 09/09/16 14:13 Urine Bacteria (Auto) 1+ /HPF (Negative) 09/09/16 14:13 Urine WBC Clumps 2+ /HPF 09/07/16 02:47 Hyaline Casts 4 /LPF 09/07/16 02:47 Urine Mucus Few /HPF 09/09/16 14:13 Urine Eosinophils None seen (None Seen) 09/07/16 16:00 Urine Total Volume 1350 09/21/16 12:00 Urine Creatinine 54.8 mg/dL (0.1-20.0) H 09/21/16 12:00 Height (in) 67.0 inches 09/21/16 12:00 Weight (lb) 92.0 lbs 09/21/16 12:00 Creatinine Clearance 15 09/21/16 12:00 Urine Sodium 36 mEq/L 09/16/16 19:19 Urine Total Protein 16 mg/dL (5-11.8) H 09/16/16 19:19 Vancomycin Trough 2.3 ug/mL (5.0-20.0) L 09/21/16 13:00 Random Vancomycin 2.3 ug/mL (0-40.0) 09/09/16 03:00 Urine Opiates Screen Presumptive negative 09/03/16 15:11 Urine Methadone Screen Presumptive positive 09/03/16 15:11 Ur Barbiturates Screen Presumptive positive 09/03/16 15:11 Ur Phencyclidine Scrn Presumptive negative 09/03/16 15:11 Ur Amphetamines Screen Presumptive negative 09/03/16 15:11 U Benzodiazepines Scrn Presumptive negative 09/03/16 15:11 Urine Cocaine Screen Presumptive negative 09/03/16 15:11 U Marijuana (THC) Screen Presumptive positive 09/03/16 15:11 Drugs of Abuse Note Disclamer 09/03/16 15:11 Rheumatoid Factor 24 IU/ml (0-13) H 09/08/16 11:48 SAHIL Screen Negative (Negative) 09/07/16 09:20 Proteinase 3 (PR3) Ab <1.0 AI (<1.0) 09/07/16 09:20 Myeloperoxidase Ab <1.0 AI (<1.0) 09/07/16 09:20 Sjogren's Antibody <1.0 AI (<1.0) 09/08/16 15:35 Scl-70 Scleroderma Ab <1.0 AI (<1.0) 09/08/16 15:35 Centromere B Antibody <1.0 AI (<1.0) 09/08/16 12:02 Heparin-induced Plt Ab Negative (Negative) 09/29/16 13:35 UF Heparin High Dose 11 % Release 09/29/16 13:35 SUDHIR UFH Low Dose 0.1 6 % Release 09/29/16 13:35 SUDHIR UFH Low Dose 0.5 8 % Release 09/29/16 13:35 Cardiolipid IgG Ab <14 GPL (<=14) 09/12/16 09:59 Cardiolipid IgA Ab <11 APL (<=11) 09/12/16 09:59 Cardiolipid IgM Ab <12 MPL (<=12) 09/12/16 09:59 Complement C3 148 mg/dL (90-180) 09/07/16 09:20 Complement C4 58 mg/dL (16-47) H 09/07/16 09:20 RPR Nonreactive (Nonreactive) 09/08/16 11:48 Hepatitis A IgM Ab Non-reactive (NonReactive) 09/24/16 14:40 Hep Bs Antigen Non-reactive (Negative) 09/24/16 14:40 Hep B Core IgM Ab Non-reactive (NonReactive) 09/24/16 14:40 Hepatitis C Antibody Non-reactive (NonReactive) 09/24/16 14:40 HIV 1&2 Antibody Rapid Non react (Non React) 09/08/16 11:48 HIV P24 Antigen Non react (Non React) 09/08/16 11:48 Blood Type A POSITIVE 09/25/16 10:30 Antibody Screen TNR 09/25/16 10:30 DELORIS Antibody Screen Negative 09/25/16 10:30 Crossmatch See Detail 09/25/16 10:30
[2016-10-04] MEDS ORDERED: TPN ADULT 2,016 ML IV SCH (20:00)
[2016-10-04] MEDS: MYCAMINE 100 MG in NACL 0.9% 100 ML IV SCH (20:53)
[2016-10-04] MEDS: CORDARONE 900 MG in D5W 482 ML IV SCH (20:56)
[2016-10-05] MEDS: FLAGYL 500 MG/100 ML 500 MG/100 ML BAG IV SCH ×3 (00:15→16:14)
[2016-10-05] MEDS ORDERED: MORPHINE IV ONE (04:30)
[2016-10-05] MEDS: HumuLIN R SUB-Q SCH ×6 (05:31→23:40)
[2016-10-05] MEDS: VANCOMYCIN PO FEEDTUBE SCH ×4 (06:00→18:03)
[2016-10-05 06:28] LABS: Hematocrit 22.6 % (30.3-42.9); Hemoglobin 7.5 gm/dl (10.1-14.3); Mean Corpuscular HGB Conc 33 % (30-34); Mean Corpuscular Hemoglobin 28 pg (28-32); Mean Corpuscular Volume 85 fl (79-97); Red Blood Count 2.64 M/mm3 (3.65-5.03); Red Cell Distribution Width 19.3 % (13.2-15.2)
[2016-10-05 06:29] LABS: Platelet Count 80 K/mm3 (140-440)
[2016-10-05 06:49] LABS: Calcium 7.7 mg/dL (8.4-10.2)
--- NOTE | 2016-10-05 07:24 | Progress Note ---
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 * Acute hypoxic respiratory failure * Accelerated hypertension * Left renal artery stenosis * Metabolic acidosis w/ respiratory compensation * Hyponatremia - resolved * pAfib Plan: * Na noted, mix amiodarone on ns * Pressors prn MAP>65 * dialysis prn, s/p HD yesterday * Rate control per cardiology * Transfusion of pRBC per primary team * Abx/antifungal per ID * Vent management per critical care * Dose medications for renal function * Avoid potential nephrotoxins Subjective Date of service: 10/05/16 Principal diagnosis: Acute resp failure on MVS; S/P Acute CVA; Acute Encephalopathy; JUANITA Interval history: no new event Objective - Exam Narrative Exam: Gen. appearance: Patient lying in bed, no apparent distress, 4. restraints HEENT: Normocephalic, atraumatic, pupils equally round and reactive to light, extraocular movement intact, and no sclericterus,. No JVD or thyromegaly or nodule,neck supple, no carotid bruit ,mucous membranes moist, unable to examine oral cavity Heart: S1, S2, regular rate and rhythm Lungs: Clear to auscultation bilaterally, breathing comfortable Abdomen: Positive bowel sounds, nontender, nondistended, no organomegaly Extremity: No edema, cyanosis, clubbing Skin: No rash, nodules, warm, dry Neuro: Difficult to assess, facial droop, moves all 4 extremities - Vital Signs Vital signs: Vital Signs - 12hr 10/04/16 10/04/16 10/04/16 19:30 19:36 20:00 Temperature 98.8 F Pulse Rate 113 H 117 H 110 H Respiratory 43 H 37 H Rate Respiratory Rate [ Generalized] Blood Pressure 126/76 126/76 117/67 O2 Sat by Pulse 100 100 100 Oximetry 10/04/16 10/04/16 10/04/16 20:19 20:30 21:00 Temperature Pulse Rate 110 H 118 H Respiratory 29 H 38 H 33 H Rate Respiratory Rate [ Generalized] Blood Pressure 113/67 125/68 O2 Sat by Pulse 100 100 100 Oximetry 10/04/16 10/04/16 10/04/16 21:30 22:00 22:30 Temperature Pulse Rate 105 H 115 H 95 H Respiratory 24 28 H 26 H Rate Respiratory 24 Rate [ Generalized] Blood Pressure 120/67 144/66 129/54 O2 Sat by Pulse 100 100 100 Oximetry 10/04/16 10/04/16 10/04/16 23:00 23:30 23:40 Temperature Pulse Rate 103 H 110 H 113 H Respiratory 26 H 26 H Rate Respiratory Rate [ Generalized] Blood Pressure 89/39 145/72 136/69 O2 Sat by Pulse 100 99 100 Oximetry 10/04/16 10/05/16 10/05/16 23:51 00:00 00:02 Temperature 99.3 F Pulse Rate 120 H 119 H Respiratory 32 H 26 H Rate Respiratory Rate [ Generalized] Blood Pressure 121/71 121/71 O2 Sat by Pulse 99 100 Oximetry 10/05/16 10/05/16 10/05/16 00:05 00:30 01:00 Temperature Pulse Rate 110 H 110 H Respiratory 23 27 H 33 H Rate Respiratory Rate [ Generalized] Blood Pressure 113/48 125/65 O2 Sat by Pulse 99 100 100 Oximetry 10/05/16 10/05/16 10/05/16 01:30 02:00 02:30 Temperature Pulse Rate 119 H 112 H 107 H Respiratory 26 H 23 26 H Rate Respiratory Rate [ Generalized] Blood Pressure 119/61 128/53 124/54 O2 Sat by Pulse 100 100 99 Oximetry 10/05/16 10/05/16 10/05/16 03:00 03:30 04:00 Temperature 99.4 F Pulse Rate 105 H 115 H 113 H Respiratory 21 24 Rate Respiratory Rate [ Generalized] Blood Pressure 115/70 166/99 166/99 O2 Sat by Pulse 100 100 Oximetry 10/05/16 10/05/16 10/05/16 04:30 05:00 05:05 Temperature Pulse Rate 104 H 110 H Respiratory 24 24 37 H Rate Respiratory Rate [ Generalized] Blood Pressure 144/76 125/73 O2 Sat by Pulse 100 100 Oximetry 10/05/16 10/05/16 10/05/16 05:30 06:00 06:30 Temperature Pulse Rate 109 H 103 H 104 H Respiratory 24 25 H 24 Rate Respiratory Rate [ Generalized] Blood Pressure 136/78 131/70 112/60 O2 Sat by Pulse 100 100 Oximetry 10/05/16 07:00 Temperature Pulse Rate 97 H Respiratory 20 Rate Respiratory Rate [ Generalized] Blood Pressure 110/58 O2 Sat by Pulse 99 Oximetry - Lab 10/05/16 05:00 08/16/17 05:00 Most recent lab results Calcium 7.7 mg/dL (8.4-10.2) L 10/05/16 05:00 Phosphorus 2.20 mg/dL (2.5-4.5) L D 10/05/16 05:00 Magnesium 1.80 mg/dL (1.7-2.3) 10/05/16 05:00 Urine Creatinine 54.8 mg/dL (0.1-20.0) H 09/21/16 12:00 Urine Sodium 36 mEq/L 09/16/16 19:19 Urine Total Protein 16 mg/dL (5-11.8) H 09/16/16 19:19
[2016-10-05 08:00] LABS: Anisocytosis 1+; Band Neutrophils # (Manual) 2.2 K/mm3; Basophils % (Manual) 0 % (0.0-1.8); Myelocytes # (Manual) 0.1 K/mm3; Platelet Estimate Consistent w Auto; Target Cells 1+; Total Cells Counted 100
--- NOTE | 2016-10-05 09:41 | Event Note ---
Date: 10/05/16 Dr Sy spoke with Gen Surgery service. Dr Oliveira to evaluate the pt later today for G/G-J tube revision.
--- NOTE | 2016-10-05 10:55 | Progress Note ---
Assessment and Plan Acute hypoxic respiratory failure on mechanical ventilation s/p trach and PEG Acute left MCA CVA echocardiogram demonstrates at least moderate LVH but a normal LV systolic function, EF 50-55%. no thrombus visualized on transthoracic echocardiogram. Hypertension was hypotensive Acute on chronic renal failure Fungemia Diabetes mellitus Anemia requiring transfusion of PRBCs Thrombocytopenia Hyponatremia Paroxysmal Afib s/p failed cardioversion on 09/25 on amiodarone drip Continue medical therapy and conservative cardiac management. Subjective Date of service: 10/05/16 Principal diagnosis: Acute resp failure on MVS; S/P Acute CVA; Acute Encephalopathy; JUANITA Interval history: Afib with mild RVR on telemetry. Objective Vital Signs Temp Pulse Resp Resp BP Pulse Ox Pulse Ox 10/05/16 09:00 87 20 88/44 100 10/05/16 08:30 83 20 91/43 100 10/05/16 08:00 98.8 F 99 H 18 90/49 100 10/05/16 07:30 96 H 22 93/48 100 10/05/16 07:00 97 H 20 110/58 99 10/05/16 06:30 104 H 24 112/60 100 10/05/16 06:00 103 H 25 H 131/70 100 10/05/16 05:30 109 H 24 136/78 10/05/16 05:05 37 H 10/05/16 05:00 110 H 24 125/73 100 10/05/16 04:30 104 H 24 144/76 100 10/05/16 04:00 99.4 F 113 H 22 166/99 100 10/05/16 03:30 115 H 24 166/99 10/05/16 03:00 105 H 21 115/70 100 10/05/16 02:30 107 H 26 H 124/54 99 10/05/16 02:00 112 H 23 128/53 100 10/05/16 01:30 119 H 26 H 119/61 100 10/05/16 01:00 110 H 33 H 125/65 100 10/05/16 00:30 110 H 27 H 113/48 100 10/05/16 00:05 23 99 10/05/16 00:02 119 H 26 H 121/71 100 10/05/16 00:00 120 H 32 H 121/71 99 10/04/16 23:51 99.3 F 10/04/16 23:40 113 H 136/69 100 10/04/16 23:30 110 H 26 H 145/72 99 10/04/16 23:00 103 H 26 H 89/39 100 10/04/16 22:30 95 H 26 H 129/54 100 10/04/16 22:00 115 H 28 H 24 144/66 100 10/04/16 21:30 105 H 24 120/67 100 10/04/16 21:00 118 H 33 H 125/68 10/04/16 20:30 110 H 38 H 113/67 10/04/16 20:19 29 H 100 10/04/16 20:00 98.8 F 110 H 37 H 117/67 10/04/16 19:36 117 H 126/76 10/04/16 19:30 113 H 43 H 126/76 100 10/04/16 19:00 105 H 45 H 98/62 100 10/04/16 18:30 109 H 47 H 105/63 10/04/16 18:00 116 H 49 H 120/71 10/04/16 17:30 114 H 46 H 137/82 10/04/16 17:00 98.7 F 117 H 40 H 113/77 90 10/04/16 16:30 119 H 29 H 118/77 10/04/16 16:25 115 H 22 138/80 86 10/04/16 14:30 97.7 F 120 H 18 129/88 100 10/04/16 14:18 120 H 147/83 10/04/16 14:03 117 H 144/87 10/04/16 14:00 122 H 22 147/83 10/04/16 13:44 99 H 139/85 10/04/16 13:30 99 H 25 H 139/85 100 10/04/16 13:15 101 H 132/78 10/04/16 13:03 99 H 135/77 10/04/16 13:00 99 H 28 H 134/78 100 10/04/16 12:57 98 H 135/77 99 10/04/16 12:46 98 H 137/75 10/04/16 12:30 98 H 26 H 82/61 100 10/04/16 12:29 96 H 94/59 10/04/16 12:15 98 H 110/66 10/04/16 12:04 97 H 145/79 10/04/16 12:00 98.5 F 98 H 26 H 110/66 100 10/04/16 11:45 99 H 140/87 10/04/16 11:30 96 H 28 H 140/87 100 10/04/16 11:15 94 H 161/86 10/04/16 11:01 96 H 22 161/86 100 10/04/16 11:00 98.0 F 94 H 25 H 161/86 100 Pulse Ox Pulse Ox 10/05/16 09:00 10/05/16 08:30 10/05/16 08:00 10/05/16 07:30 10/05/16 07:00 10/05/16 06:30 10/05/16 06:00 10/05/16 05:30 10/05/16 05:05 10/05/16 05:00 10/05/16 04:30 10/05/16 04:00 10/05/16 03:30 10/05/16 03:00 10/05/16 02:30 10/05/16 02:00 10/05/16 01:30 10/05/16 01:00 10/05/16 00:30 10/05/16 00:05 10/05/16 00:02 10/05/16 00:00 10/04/16 23:51 10/04/16 23:40 10/04/16 23:30 10/04/16 23:00 10/04/16 22:30 10/04/16 22:00 10/04/16 21:30 10/04/16 21:00 10/04/16 20:30 10/04/16 20:19 10/04/16 20:00 10/04/16 19:36 10/04/16 19:30 10/04/16 19:00 10/04/16 18:30 10/04/16 18:00 10/04/16 17:30 10/04/16 17:00 10/04/16 16:30 10/04/16 16:25 10/04/16 14:30 100 10/04/16 14:18 10/04/16 14:03 10/04/16 14:00 10/04/16 13:44 10/04/16 13:30 10/04/16 13:15 10/04/16 13:03 10/04/16 13:00 10/04/16 12:57 10/04/16 12:46 10/04/16 12:30 10/04/16 12:29 10/04/16 12:15 10/04/16 12:04 10/04/16 12:00 10/04/16 11:45 10/04/16 11:30 10/04/16 11:15 99 10/04/16 11:01 10/04/16 11:00 100 - Physical Examination General: Other (intubated via trach) Cardiac: Positive: irregularly irregular - Labs and Meds CBC 10/05/16 Range/Units 05:00 WBC 10.1 (4.5-11.0) K/mm3 RBC 2.64 L (3.65-5.03) M/mm3 Hgb 7.5 L (10.1-14.3) gm/dl Hct 22.6 L (30.3-42.9) % Plt Count 80 L (140-440) K/mm3 Comprehensive Metabolic Panel 10/05/16 Range/Units 05:00 Sodium 131 L (137-145) mmol/L Potassium 3.6 (3.6-5.0) mmol/L Chloride 94.0 L (98-107) mmol/L Carbon Dioxide 20 L (22-30) mmol/L BUN 22 H (7-17) mg/dL Creatinine 2.0 H (0.7-1.2) mg/dL Glucose 123 H (65-100) mg/dL Calcium 7.7 L (8.4-10.2) mg/dL - Imaging and Cardiology EKG: image reviewed - Allied health notes Allied health notes reviewed: RT
--- NOTE | 2016-10-05 11:34 | Progress Note ---
Assessment and Plan (1) Acute respiratory failure with hypoxia Current Visit: Yes Status: Acute Plan to address problem: - continue aspiration precautions / address VAP bundles - continue to wean oxygen for MAP > 94% - continue bronchodilators and pulmonary toilet - tapered off systemic steroids (no active needs pulmonary-aquino) - s/p tracheostomy - placed back on AC mode after review of ABG and secondary to increased work of breathing - continue daily PSV trials as tolerated (2) Acute CVA (cerebrovascular accident) Current Visit: Yes Status: Acute Plan to address problem: - out of tpA window (initially stopped due to uncontrolled HTN) - Left MCA teritory stroke with some midline shift on last CT - seen by neurology and prognosis for recovery of mental status guarded to poor - optimizing secondary prevention modalities now (BP, lipid anti-platelet therapy) - off systemic steroids now (started earlier for edema) (3) Hypertensive emergency Current Visit: Yes Status: Acute Plan to address problem: - stopped all antihypertensives while septic - following cllinically (4) Obesity (BMI 35.0-39.9 without comorbidity) Current Visit: Yes Status: Chronic Plan to address problem: - nutrition consult placed for enteral formulation - follow clinically (5) Type 2 diabetes mellitus Current Visit: Yes Status: Chronic Qualifiers: Diabetes mellitus complication status: D Diabetes mellitus complication detail: D Diabetic retinopathy severity: D Proliferative retinopathy type: P Diabetes mellitus macular edema: D Diabetes mellitus half-way insulin use : D Laterality: L Chronic kidney disease stage: C Plan to address problem: - continue SSI - discontinued lantus re: hypoglycemia (6) Leukocytosis (leucocytosis) Current Visit: Yes Status: Acute Qualifiers: Leukocytosis type: leukemoid reaction Qualified Code(s): D72.823 - Leukemoid reaction Plan to address problem: - continue cancidas and de-escalate per ID recs - clinically improved (7) Agitation Current Visit: Yes Status: Acute Plan to address problem: - prn sedation / analgesia - tapered off seroquel for now (8) Atrial fibrillation Current Visit: Yes Status: Acute Qualifiers: Atrial fibrillation type: A Plan to address problem: - failed cardioversion earlier - cardiology evaluation ongoing - back in A-fib - continue amiodarone drip (change to p.o. once tolerating enterally) (9) JUANITA (acute kidney injury) Current Visit: Yes Status: Acute Plan to address problem: - on Dialysis now - continue HD/UF per nephrology recommendations (10) Pyrexia of unknown origin Current Visit: Yes Status: Acute Plan to address problem: - dopplers negative for DVT - continue to treat with AB;'s empirically - continue micafungin (11) Severe sepsis Current Visit: Yes Status: Acute Plan to address problem: - continue AB's and follow cultures - resume vasopressors for MAP < 60mmHg not responsive to volume - all central vascular access has been discontinued after fungemia reported - care plan formulated with ID input - vascath and PICC pulled with new RIJ placed (trialysis catheter apparently) - clinically much better and again weaning off levophed - BC's from 09/27/16 growing in 1of 2 but no ID yet - continue micafungin (12) Emesis Current Visit: Yes Status: Acute Qualifiers: Vomiting type: V Vomiting Intractability: V Nausea presence: N Plan to address problem: - continue PEG to LIS - stopped reglan - apparently G-tube may not be in stomach - IR evaluation ongoing - unable to get G-J tube yesterday in IR - surgery to manage and replace going forward - remains on TPN for now (13) Discharge planning issues Current Visit: Yes Status: Acute Plan to address problem: - she remains critically ill on life sustaining interventions including MVS and at risk for further acute deterioration including .....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 Subjective Date of service: 10/05/16 Principal diagnosis: Acute resp failure on MVS; S/P Acute CVA; Acute Encephalopathy; JUANITA Interval history: Seen and examined at bedside; 24 hour events reviewed; nursing and respiratory care staff consulted; no adverse overnight events reported to me; resting in bed ; remains on MVS and tolerating weaning today; significant sloughing of skin on back reported by RN; no high grade fevers and no hypotensive episodes Objective Vital Signs - 12hr 10/04/16 10/04/16 10/05/16 23:40 23:51 00:00 Temperature 99.3 F Pulse Rate 113 H 120 H Respiratory 32 H Rate Blood Pressure 136/69 121/71 O2 Sat by Pulse 100 99 Oximetry 10/05/16 10/05/16 10/05/16 00:02 00:05 00:30 Temperature Pulse Rate 119 H 110 H Respiratory 26 H 23 27 H Rate Blood Pressure 121/71 113/48 O2 Sat by Pulse 100 99 100 Oximetry 10/05/16 10/05/16 10/05/16 01:00 01:30 02:00 Temperature Pulse Rate 110 H 119 H 112 H Respiratory 33 H 26 H 23 Rate Blood Pressure 125/65 119/61 128/53 O2 Sat by Pulse 100 100 100 Oximetry 10/05/16 10/05/16 10/05/16 02:30 03:00 03:30 Temperature Pulse Rate 107 H 105 H 115 H Respiratory 26 H 21 24 Rate Blood Pressure 124/54 115/70 166/99 O2 Sat by Pulse 99 100 Oximetry 10/05/16 10/05/16 10/05/16 04:00 04:30 05:00 Temperature 99.4 F Pulse Rate 113 H 104 H 110 H Respiratory 22 24 24 Rate Blood Pressure 166/99 144/76 125/73 O2 Sat by Pulse 100 100 100 Oximetry 10/05/16 10/05/16 10/05/16 05:05 05:30 06:00 Temperature Pulse Rate 109 H 103 H Respiratory 37 H 24 25 H Rate Blood Pressure 136/78 131/70 O2 Sat by Pulse 100 Oximetry 10/05/16 10/05/16 10/05/16 06:30 07:00 07:30 Temperature Pulse Rate 104 H 97 H 96 H Respiratory 24 20 22 Rate Blood Pressure 112/60 110/58 93/48 O2 Sat by Pulse 100 99 100 Oximetry 10/05/16 10/05/16 10/05/16 08:00 08:30 09:00 Temperature 98.8 F Pulse Rate 99 H 83 87 Respiratory 18 20 20 Rate Blood Pressure 90/49 91/43 88/44 O2 Sat by Pulse 100 100 100 Oximetry Constitutional: no acute distress, other (grimaces with moving) Eyes: non-icteric, other (tracheostomy tube in midline of neck) ENT: oropharynx moist Neck: supple, no lymphadenopathy Effort: mildly labored Ascultation: Bilateral: rales (scant) Cardiovascular: regular rate and rhythm Gastrointestinal: hypoactive bowel sounds, soft, non-tender, non-distended Integumentary: other (erythema to skin of back with some healing areas; no obvious TEN's features) Extremities: no cyanosis, no edema, pulses normal, no ischemia or petechiae Neurologic: pupils equal and round, other (sedated) Psychiatric: other (unable to assess) CBC and BMP: 10/05/16 05:00 10/05/16 05:00 ABG, PT/INR, D-dimer: ABG POC ABG pH 7.475 (7.35-7.45) H 10/05/16 04:30 POC ABG pCO2 33.3 (35-45) L 10/05/16 04:30 POC ABG pO2 140 (80-105) H 10/05/16 04:30 POC ABG HCO3 24.5 10/05/16 04:30 POC ABG Total CO2 26 10/05/16 04:30 POC ABG O2 Sat 99 10/05/16 04:30 PT/INR, D-dimer PT 13.8 Sec. (12.2-14.9) 09/15/16 05:00 INR 1.01 (0.87-1.13) 09/15/16 05:00 Abnormal lab findings: Abnormal Labs 09/03/16 09/03/16 09/03/16 12:12 15:07 16:20 WBC RBC Hgb Hct MCV MCH MCHC RDW Plt Count Lymph % (Auto) [place] % (Auto) Lymph # [place] # Seg Neutrophils % Seg Neuts % (Manual) Lymphocytes % (Manual) Monocytes % (Manual) Eosinophils % (Manual) Basophils % (Manual) Nucleated RBC % Seg Neutrophils # Seg Neutrophils # Man Lymphocytes # (Manual) Monocytes # (Manual) Eosinophils # (Manual) Fibrinogen dRVVT Confirm Interp Factor V Activity POC ABG pH 7.452 H POC ABG pCO2 POC ABG pO2 Sodium Potassium Chloride Carbon Dioxide BUN Creatinine Glucose POC Glucose 178 H Lactic Acid Calcium Phosphorus 2.20 L Magnesium 1.60 L Direct Bilirubin Troponin T C-Reactive Protein Total Protein Albumin Triglycerides Cholesterol LDL Cholesterol Direct HDL Cholesterol Urine WBC (Auto) Urine Creatinine Urine Total Protein Vancomycin Trough Rheumatoid Factor Complement C4 Crossmatch 09/03/16 09/03/16 09/03/16 17:57 17:58 23:50 WBC RBC Hgb Hct MCV MCH MCHC RDW Plt Count Lymph % (Auto) [place] % (Auto) Lymph # [place] # Seg Neutrophils % Seg Neuts % (Manual) Lymphocytes % (Manual) Monocytes % (Manual) Eosinophils % (Manual) Basophils % (Manual) Nucleated RBC % Seg Neutrophils # Seg Neutrophils # Man Lymphocytes # (Manual) Monocytes # (Manual) Eosinophils # (Manual) Fibrinogen dRVVT Confirm Interp Factor V Activity POC ABG pH POC ABG pCO2 POC ABG pO2 Sodium Potassium Chloride Carbon Dioxide BUN Creatinine Glucose POC Glucose 162 H 145 H Lactic Acid Calcium Phosphorus 2.30 L Magnesium Direct Bilirubin Troponin T C-Reactive Protein Total Protein Albumin Triglycerides Cholesterol LDL Cholesterol Direct HDL Cholesterol Urine WBC (Auto) Urine Creatinine Urine Total Protein Vancomycin Trough Rheumatoid Factor Complement C4 Crossmatch 09/04/16 09/04/16 09/04/16 03:31 03:31 05:42 WBC RBC Hgb 9.7 L D Hct MCV 72 L MCH 23 L MCHC RDW 17.5 H Plt Count Lymph % (Auto) 11.1 L [place] % (Auto) Lymph # [place] # Seg Neutrophils % 84.3 H Seg Neuts % (Manual) Lymphocytes % (Manual) Monocytes % (Manual) Eosinophils % (Manual) Basophils % (Manual) Nucleated RBC % Seg Neutrophils # 8.9 H Seg Neutrophils # Man Lymphocytes # (Manual) Monocytes # (Manual) Eosinophils # (Manual) Fibrinogen dRVVT Confirm Interp Factor V Activity POC ABG pH POC ABG pCO2 POC ABG pO2 Sodium 135 L Potassium 2.9 L* Chloride 97.2 L Carbon Dioxide 19 L BUN Creatinine 1.7 H Glucose 170 H POC Glucose 152 H Lactic Acid Calcium Phosphorus Magnesium Direct Bilirubin Troponin T C-Reactive Protein Total Protein Albumin Triglycerides 160 H Cholesterol LDL Cholesterol Direct HDL Cholesterol 31 L Urine WBC (Auto) Urine Creatinine Urine Total Protein Vancomycin Trough Rheumatoid Factor Complement C4 Crossmatch 09/04/16 09/04/16 09/04/16 11:34 17:46 23:29 WBC RBC Hgb Hct MCV MCH MCHC RDW Plt Count Lymph % (Auto) [place] % (Auto) Lymph # [place] # Seg Neutrophils % Seg Neuts % (Manual) Lymphocytes % (Manual) Monocytes % (Manual) Eosinophils % (Manual) Basophils % (Manual) Nucleated RBC % Seg Neutrophils # Seg Neutrophils # Man Lymphocytes # (Manual) Monocytes # (Manual) Eosinophils # (Manual) Fibrinogen dRVVT Confirm Interp Factor V Activity POC ABG pH POC ABG pCO2 POC ABG pO2 Sodium Potassium Chloride Carbon Dioxide BUN Creatinine Glucose POC Glucose 165 H 210 H 139 H Lactic Acid Calcium Phosphorus Magnesium Direct Bilirubin Troponin T C-Reactive Protein Total Protein Albumin Triglycerides Cholesterol LDL Cholesterol Direct HDL Cholesterol Urine WBC (Auto) Urine Creatinine Urine Total Protein Vancomycin Trough Rheumatoid Factor Complement C4 Crossmatch 09/05/16 09/05/16 09/05/16 04:05 04:05 05:38 WBC RBC Hgb Hct MCV 76 L D MCH 23 L MCHC RDW 17.8 H Plt Count Lymph % (Auto) [place] % (Auto) Lymph # [place] # Seg Neutrophils % Seg Neuts % (Manual) Lymphocytes % (Manual) Monocytes % (Manual) Eosinophils % (Manual) Basophils % (Manual) Nucleated RBC % Seg Neutrophils # Seg Neutrophils # Man Lymphocytes # (Manual) Monocytes # (Manual) Eosinophils # (Manual) Fibrinogen dRVVT Confirm Interp Factor V Activity POC ABG pH POC ABG pCO2 POC ABG pO2 Sodium 134 L Potassium Chloride Carbon Dioxide 18 L BUN Creatinine 1.8 H Glucose 192 H POC Glucose 175 H Lactic Acid Calcium Phosphorus Magnesium Direct Bilirubin Troponin T C-Reactive Protein Total Protein Albumin Triglycerides Cholesterol LDL Cholesterol Direct HDL Cholesterol Urine WBC (Auto) Urine Creatinine Urine Total Protein Vancomycin Trough Rheumatoid Factor Complement C4 Crossmatch 09/05/16 09/05/16 09/05/16 11:38 17:48 23:22 WBC RBC Hgb Hct MCV MCH MCHC RDW Plt Count Lymph % (Auto) [place] % (Auto) Lymph # [place] # Seg Neutrophils % Seg Neuts % (Manual) Lymphocytes % (Manual) Monocytes % (Manual) Eosinophils % (Manual) Basophils % (Manual) Nucleated RBC % Seg Neutrophils # Seg Neutrophils # Man Lymphocytes # (Manual) Monocytes # (Manual) Eosinophils # (Manual) Fibrinogen dRVVT Confirm Interp Factor V Activity POC ABG pH POC ABG pCO2 POC ABG pO2 Sodium Potassium Chloride Carbon Dioxide BUN Creatinine Glucose POC Glucose 164 H 186 H 195 H Lactic Acid Calcium Phosphorus Magnesium Direct Bilirubin Troponin T C-Reactive Protein Total Protein Albumin Triglycerides Cholesterol LDL Cholesterol Direct HDL Cholesterol Urine WBC (Auto) Urine Creatinine Urine Total Protein Vancomycin Trough Rheumatoid Factor Complement C4 Crossmatch 09/06/16 09/06/16 09/06/16 04:12 05:59 07:32 WBC RBC Hgb Hct MCV MCH MCHC RDW Plt Count Lymph % (Auto) [place] % (Auto) Lymph # [place] # Seg Neutrophils % Seg Neuts % (Manual) Lymphocytes % (Manual) Monocytes % (Manual) Eosinophils % (Manual) Basophils % (Manual) Nucleated RBC % Seg Neutrophils # Seg Neutrophils # Man Lymphocytes # (Manual) Monocytes # (Manual) Eosinophils # (Manual) Fibrinogen dRVVT Confirm Interp Factor V Activity POC ABG pH 7.514 H POC ABG pCO2 29.1 L POC ABG pO2 72 L Sodium 133 L Potassium 3.4 L Chloride 94.9 L Carbon Dioxide 19 L BUN 30 H Creatinine 2.1 H Glucose 139 H POC Glucose 146 H Lactic Acid Calcium Phosphorus Magnesium Direct Bilirubin Troponin T C-Reactive Protein Total Protein Albumin Triglycerides Cholesterol LDL Cholesterol Direct HDL Cholesterol Urine WBC (Auto) Urine Creatinine Urine Total Protein Vancomycin Trough Rheumatoid Factor Complement C4 Crossmatch 09/06/16 09/06/16 09/06/16 11:57 17:58 19:02 WBC RBC Hgb Hct MCV MCH MCHC RDW Plt Count Lymph % (Auto) [place] % (Auto) Lymph # [place] # Seg Neutrophils % Seg Neuts % (Manual) Lymphocytes % (Manual) Monocytes % (Manual) Eosinophils % (Manual) Basophils % (Manual) Nucleated RBC % Seg Neutrophils # Seg Neutrophils # Man Lymphocytes # (Manual) Monocytes # (Manual) Eosinophils # (Manual) Fibrinogen dRVVT Confirm Interp Factor V Activity POC ABG pH 7.465 H POC ABG pCO2 32.0 L POC ABG pO2 Sodium Potassium Chloride Carbon Dioxide BUN Creatinine Glucose POC Glucose 165 H 160 H Lactic Acid Calcium Phosphorus Magnesium Direct Bilirubin Troponin T C-Reactive Protein Total Protein Albumin Triglycerides Cholesterol LDL Cholesterol Direct HDL Cholesterol Urine WBC (Auto) Urine Creatinine Urine Total Protein Vancomycin Trough Rheumatoid Factor Complement C4 Crossmatch 09/06/16 09/07/16 09/07/16 23:45 02:47 02:47 WBC RBC Hgb Hct MCV MCH MCHC RDW Plt Count Lymph % (Auto) [place] % (Auto) Lymph # [place] # Seg Neutrophils % Seg Neuts % (Manual) Lymphocytes % (Manual) Monocytes % (Manual) Eosinophils % (Manual) Basophils % (Manual) Nucleated RBC % Seg Neutrophils # Seg Neutrophils # Man Lymphocytes # (Manual) Monocytes # (Manual) Eosinophils # (Manual) Fibrinogen dRVVT Confirm Interp Factor V Activity POC ABG pH POC ABG pCO2 POC ABG pO2 Sodium Potassium Chloride Carbon Dioxide BUN Creatinine Glucose POC Glucose 204 H Lactic Acid Calcium Phosphorus Magnesium Direct Bilirubin Troponin T C-Reactive Protein Total Protein Albumin Triglycerides Cholesterol LDL Cholesterol Direct HDL Cholesterol Urine WBC (Auto) 68.0 H Urine Creatinine 106.1 H Urine Total Protein Vancomycin Trough Rheumatoid Factor Complement C4 Crossmatch 09/07/16 09/07/16 09/07/16 04:50 06:19 06:39 WBC RBC Hgb Hct MCV MCH MCHC RDW Plt Count Lymph % (Auto) [place] % (Auto) Lymph # [place] # Seg Neutrophils % Seg Neuts % (Manual) Lymphocytes % (Manual) Monocytes % (Manual) Eosinophils % (Manual) Basophils % (Manual) Nucleated RBC % Seg Neutrophils # Seg Neutrophils # Man Lymphocytes # (Manual) Monocytes # (Manual) Eosinophils # (Manual) Fibrinogen dRVVT Confirm Interp Factor V Activity POC ABG pH 7.457 H POC ABG pCO2 32.1 L POC ABG pO2 76 L Sodium 132 L Potassium Chloride 94.7 L Carbon Dioxide BUN 53 H Creatinine 2.9 H Glucose 151 H POC Glucose 149 H Lactic Acid Calcium Phosphorus Magnesium Direct Bilirubin Troponin T C-Reactive Protein Total Protein Albumin Triglycerides Cholesterol LDL Cholesterol Direct HDL Cholesterol Urine WBC (Auto) Urine Creatinine Urine Total Protein Vancomycin Trough Rheumatoid Factor Complement C4 Crossmatch 09/07/16 09/07/16 09/07/16 09:20 11:43 11:43 WBC 19.4 H RBC Hgb 8.3 L Hct 26.4 L D MCV 72 L D MCH 22 L MCHC RDW 17.9 H Plt Count Lymph % (Auto) 8.5 L [place] % (Auto) Lymph # [place] # 1.0 H Seg Neutrophils % 85.8 H Seg Neuts % (Manual) Lymphocytes % (Manual) Monocytes % (Manual) Eosinophils % (Manual) Basophils % (Manual) Nucleated RBC % Seg Neutrophils # 16.6 H Seg Neutrophils # Man Lymphocytes # (Manual) Monocytes # (Manual) Eosinophils # (Manual) Fibrinogen dRVVT Confirm Interp Factor V Activity POC ABG pH POC ABG pCO2 POC ABG pO2 Sodium 134 L Potassium Chloride 97.2 L Carbon Dioxide 20 L BUN 58 H Creatinine 2.9 H Glucose 147 H POC Glucose Lactic Acid Calcium Phosphorus 2.40 L Magnesium 2.40 H Direct Bilirubin Troponin T C-Reactive Protein Total Protein 5.8 L Albumin 2.2 L Triglycerides Cholesterol LDL Cholesterol Direct HDL Cholesterol Urine WBC (Auto) Urine Creatinine Urine Total Protein Vancomycin Trough Rheumatoid Factor Complement C4 58 H Crossmatch 09/07/16 09/07/16 09/07/16 11:50 16:00 17:31 WBC RBC Hgb Hct MCV MCH MCHC RDW Plt Count Lymph % (Auto) [place] % (Auto) Lymph # [place] # Seg Neutrophils % Seg Neuts % (Manual) Lymphocytes % (Manual) Monocytes % (Manual) Eosinophils % (Manual) Basophils % (Manual) Nucleated RBC % Seg Neutrophils # Seg Neutrophils # Man Lymphocytes # (Manual) Monocytes # (Manual) Eosinophils # (Manual) Fibrinogen dRVVT Confirm Interp Factor V Activity POC ABG pH POC ABG pCO2 POC ABG pO2 158 H Sodium Potassium Chloride Carbon Dioxide BUN Creatinine Glucose POC Glucose 175 H Lactic Acid Calcium Phosphorus Magnesium Direct Bilirubin Troponin T C-Reactive Protein Total Protein Albumin Triglycerides Cholesterol LDL Cholesterol Direct HDL Cholesterol Urine WBC (Auto) Urine Creatinine 66.3 H Urine Total Protein Vancomycin Trough Rheumatoid Factor Complement C4 Crossmatch 09/07/16 09/08/16 09/08/16 23:50 05:46 06:18 WBC 17.8 H RBC 3.58 L Hgb 8.1 L Hct 25.5 L MCV 71 L MCH 23 L MCHC RDW 18.4 H Plt Count Lymph % (Auto) [place] % (Auto) Lymph # [place] # Seg Neutrophils % Seg Neuts % (Manual) 92.0 H Lymphocytes % (Manual) 6.0 L Monocytes % (Manual) Eosinophils % (Manual) Basophils % (Manual) Nucleated RBC % Seg Neutrophils # Seg Neutrophils # Man 16.4 H Lymphocytes # (Manual) 1.1 L Monocytes # (Manual) Eosinophils # (Manual) Fibrinogen dRVVT Confirm Interp Factor V Activity POC ABG pH POC ABG pCO2 34.3 L POC ABG pO2 71 L Sodium Potassium Chloride Carbon Dioxide BUN Creatinine Glucose POC Glucose 216 H Lactic Acid Calcium Phosphorus Magnesium Direct Bilirubin Troponin T C-Reactive Protein Total Protein Albumin Triglycerides Cholesterol LDL Cholesterol Direct HDL Cholesterol Urine WBC (Auto) Urine Creatinine Urine Total Protein Vancomycin Trough Rheumatoid Factor Complement C4 Crossmatch 09/08/16 09/08/16 09/08/16 06:18 06:51 10:55 WBC RBC Hgb Hct MCV MCH MCHC RDW Plt Count Lymph % (Auto) [place] % (Auto) Lymph # [place] # Seg Neutrophils % Seg Neuts % (Manual) Lymphocytes % (Manual) Monocytes % (Manual) Eosinophils % (Manual) Basophils % (Manual) Nucleated RBC % Seg Neutrophils # Seg Neutrophils # Man Lymphocytes # (Manual) Monocytes # (Manual) Eosinophils # (Manual) Fibrinogen dRVVT Confirm Interp Factor V Activity POC ABG pH POC ABG pCO2 POC ABG pO2 Sodium 133 L Potassium Chloride 96.9 L Carbon Dioxide 20 L BUN 63 H Creatinine 2.7 H Glucose 195 H POC Glucose 204 H 169 H Lactic Acid Calcium Phosphorus Magnesium Direct Bilirubin Troponin T C-Reactive Protein Total Protein Albumin Triglycerides Cholesterol LDL Cholesterol Direct HDL Cholesterol Urine WBC (Auto) Urine Creatinine Urine Total Protein Vancomycin Trough Rheumatoid Factor Complement C4 Crossmatch 09/08/16 09/08/16 09/08/16 11:48 11:48 11:48 WBC RBC Hgb Hct MCV MCH MCHC RDW Plt Count Lymph % (Auto) [place] % (Auto) Lymph # [place] # Seg Neutrophils % Seg Neuts % (Manual) Lymphocytes % (Manual) Monocytes % (Manual) Eosinophils % (Manual) Basophils % (Manual) Nucleated RBC % Seg Neutrophils # Seg Neutrophils # Man Lymphocytes # (Manual) Monocytes # (Manual) Eosinophils # (Manual) Fibrinogen 750 H dRVVT Confirm Interp Factor V Activity POC ABG pH POC ABG pCO2 POC ABG pO2 Sodium Potassium Chloride Carbon Dioxide BUN Creatinine Glucose POC Glucose Lactic Acid Calcium Phosphorus Magnesium Direct Bilirubin Troponin T C-Reactive Protein 15.70 H Total Protein Albumin Triglycerides Cholesterol LDL Cholesterol Direct HDL Cholesterol Urine WBC (Auto) Urine Creatinine Urine Total Protein Vancomycin Trough Rheumatoid Factor 24 H Complement C4 Crossmatch 09/08/16 09/08/16 09/09/16 15:35 18:25 00:24 WBC RBC Hgb Hct MCV MCH MCHC RDW Plt Count Lymph % (Auto) [place] % (Auto) Lymph # [place] # Seg Neutrophils % Seg Neuts % (Manual) Lymphocytes % (Manual) Monocytes % (Manual) Eosinophils % (Manual) Basophils % (Manual) Nucleated RBC % Seg Neutrophils # Seg Neutrophils # Man Lymphocytes # (Manual) Monocytes # (Manual) Eosinophils # (Manual) Fibrinogen dRVVT Confirm Interp Factor V Activity 182 H POC ABG pH POC ABG pCO2 POC ABG pO2 Sodium Potassium Chloride Carbon Dioxide BUN Creatinine Glucose POC Glucose 184 H 216 H Lactic Acid Calcium Phosphorus Magnesium Direct Bilirubin Troponin T C-Reactive Protein Total Protein Albumin Triglycerides Cholesterol LDL Cholesterol Direct HDL Cholesterol Urine WBC (Auto) Urine Creatinine Urine Total Protein Vancomycin Trough Rheumatoid Factor Complement C4 Crossmatch 09/09/16 09/09/16 09/09/16 03:00 03:00 04:04 WBC 27.9 H RBC Hgb 8.7 L Hct 28.1 L MCV 72 L MCH 22 L MCHC RDW 18.4 H Plt Count 485 H Lymph % (Auto) [place] % (Auto) Lymph # [place] # Seg Neutrophils % Seg Neuts % (Manual) 77.0 H Lymphocytes % (Manual) 9.0 L Monocytes % (Manual) Eosinophils % (Manual) Basophils % (Manual) Nucleated RBC % Seg Neutrophils # Seg Neutrophils # Man 21.5 H Lymphocytes # (Manual) Monocytes # (Manual) 2.0 H Eosinophils # (Manual) Fibrinogen dRVVT Confirm Interp Factor V Activity POC ABG pH POC ABG pCO2 POC ABG pO2 121 H Sodium 135 L Potassium Chloride 96.3 L Carbon Dioxide 21 L BUN 83 H Creatinine 3.0 H Glucose 135 H POC Glucose Lactic Acid Calcium Phosphorus Magnesium Direct Bilirubin Troponin T C-Reactive Protein Total Protein Albumin Triglycerides Cholesterol LDL Cholesterol Direct HDL Cholesterol Urine WBC (Auto) Urine Creatinine Urine Total Protein Vancomycin Trough Rheumatoid Factor Complement C4 Crossmatch 09/09/16 09/09/16 09/09/16 05:41 11:55 14:13 WBC RBC Hgb Hct MCV MCH MCHC RDW Plt Count Lymph % (Auto) [place] % (Auto) Lymph # [place] # Seg Neutrophils % Seg Neuts % (Manual) Lymphocytes % (Manual) Monocytes % (Manual) Eosinophils % (Manual) Basophils % (Manual) Nucleated RBC % Seg Neutrophils # Seg Neutrophils # Man Lymphocytes # (Manual) Monocytes # (Manual) Eosinophils # (Manual) Fibrinogen dRVVT Confirm Interp Factor V Activity POC ABG pH POC ABG pCO2 POC ABG pO2 Sodium Potassium Chloride Carbon Dioxide BUN Creatinine Glucose POC Glucose 155 H 186 H Lactic Acid Calcium Phosphorus Magnesium Direct Bilirubin Troponin T C-Reactive Protein Total Protein Albumin Triglycerides Cholesterol LDL Cholesterol Direct HDL Cholesterol Urine WBC (Auto) 25.0 H Urine Creatinine Urine Total Protein Vancomycin Trough Rheumatoid Factor Complement C4 Crossmatch 09/09/16 09/09/16 09/10/16 17:33 23:13 05:09 WBC RBC Hgb Hct MCV MCH MCHC RDW Plt Count Lymph % (Auto) [place] % (Auto) Lymph # [place] # Seg Neutrophils % Seg Neuts % (Manual) Lymphocytes % (Manual) Monocytes % (Manual) Eosinophils % (Manual) Basophils % (Manual) Nucleated RBC % Seg Neutrophils # Seg Neutrophils # Man Lymphocytes # (Manual) Monocytes # (Manual) Eosinophils # (Manual) Fibrinogen dRVVT Confirm Interp Factor V Activity POC ABG pH POC ABG pCO2 POC ABG pO2 74 L Sodium Potassium Chloride Carbon Dioxide BUN Creatinine Glucose POC Glucose 211 H 215 H Lactic Acid Calcium Phosphorus Magnesium Direct Bilirubin Troponin T C-Reactive Protein Total Protein Albumin Triglycerides Cholesterol LDL Cholesterol Direct HDL Cholesterol Urine WBC (Auto) Urine Creatinine Urine Total Protein Vancomycin Trough Rheumatoid Factor Complement C4 Crossmatch 09/10/16 09/10/16 09/10/16 05:17 05:17 11:31 WBC 15.8 H RBC 3.25 L Hgb 7.3 L Hct 22.9 L MCV 71 L MCH 23 L MCHC RDW 18.4 H Plt Count Lymph % (Auto) [place] % (Auto) Lymph # [place] # Seg Neutrophils % Seg Neuts % (Manual) 91.0 H Lymphocytes % (Manual) 4.0 L Monocytes % (Manual) Eosinophils % (Manual) Basophils % (Manual) Nucleated RBC % Seg Neutrophils # Seg Neutrophils # Man 14.4 H Lymphocytes # (Manual) 0.6 L Monocytes # (Manual) Eosinophils # (Manual) Fibrinogen dRVVT Confirm Interp Factor V Activity POC ABG pH POC ABG pCO2 POC ABG pO2 Sodium Potassium Chloride Carbon Dioxide 21 L BUN 93 H Creatinine 2.9 H Glucose 146 H POC Glucose 188 H Lactic Acid Calcium 8.1 L Phosphorus Magnesium Direct Bilirubin Troponin T C-Reactive Protein Total Protein Albumin Triglycerides Cholesterol LDL Cholesterol Direct HDL Cholesterol Urine WBC (Auto) Urine Creatinine Urine Total Protein Vancomycin Trough Rheumatoid Factor Complement C4 Crossmatch 09/10/16 09/10/16 09/10/16 13:17 17:20 23:32 WBC RBC Hgb Hct MCV MCH MCHC RDW Plt Count Lymph % (Auto) [place] % (Auto) Lymph # [place] # Seg Neutrophils % Seg Neuts % (Manual) Lymphocytes % (Manual) Monocytes % (Manual) Eosinophils % (Manual) Basophils % (Manual) Nucleated RBC % Seg Neutrophils # Seg Neutrophils # Man Lymphocytes # (Manual) Monocytes # (Manual) Eosinophils # (Manual) Fibrinogen dRVVT Confirm Interp Factor V Activity POC ABG pH POC ABG pCO2 POC ABG pO2 Sodium Potassium Chloride Carbon Dioxide BUN Creatinine Glucose POC Glucose 199 H 186 H Lactic Acid Calcium Phosphorus Magnesium Direct Bilirubin Troponin T C-Reactive Protein Total Protein Albumin Triglycerides Cholesterol LDL Cholesterol Direct HDL Cholesterol Urine WBC (Auto) Urine Creatinine Urine Total Protein Vancomycin Trough Rheumatoid Factor Complement C4 Crossmatch See Detail 09/11/16 09/11/16 09/11/16 05:10 05:10 05:17 WBC 28.4 H RBC Hgb 9.2 L Hct 29.3 L D MCV 73 L MCH 23 L MCHC RDW 18.9 H Plt Count 452 H Lymph % (Auto) [place] % (Auto) Lymph # [place] # Seg Neutrophils % Seg Neuts % (Manual) 89.5 H Lymphocytes % (Manual) 2.0 L Monocytes % (Manual) Eosinophils % (Manual) Basophils % (Manual) Nucleated RBC % Seg Neutrophils # Seg Neutrophils # Man 25.4 H Lymphocytes # (Manual) 0.6 L Monocytes # (Manual) 1.3 H Eosinophils # (Manual) Fibrinogen dRVVT Confirm Interp Factor V Activity POC ABG pH POC ABG pCO2 POC ABG pO2 Sodium 136 L Potassium Chloride Carbon Dioxide 18 L BUN 107 H Creatinine 2.6 H Glucose 187 H POC Glucose 230 H Lactic Acid Calcium 8.3 L Phosphorus Magnesium Direct Bilirubin Troponin T C-Reactive Protein Total Protein Albumin Triglycerides Cholesterol LDL Cholesterol Direct HDL Cholesterol Urine WBC (Auto) Urine Creatinine Urine Total Protein Vancomycin Trough Rheumatoid Factor Complement C4 Crossmatch 09/11/16 09/11/16 09/11/16 05:55 12:02 17:32 WBC RBC Hgb Hct MCV MCH MCHC RDW Plt Count Lymph % (Auto) [place] % (Auto) Lymph # [place] # Seg Neutrophils % Seg Neuts % (Manual) Lymphocytes % (Manual) Monocytes % (Manual) Eosinophils % (Manual) Basophils % (Manual) Nucleated RBC % Seg Neutrophils # Seg Neutrophils # Man Lymphocytes # (Manual) Monocytes # (Manual) Eosinophils # (Manual) Fibrinogen dRVVT Confirm Interp Factor V Activity POC ABG pH POC ABG pCO2 33.8 L POC ABG pO2 Sodium Potassium Chloride Carbon Dioxide BUN Creatinine Glucose POC Glucose 191 H 239 H Lactic Acid Calcium Phosphorus Magnesium Direct Bilirubin Troponin T C-Reactive Protein Total Protein Albumin Triglycerides Cholesterol LDL Cholesterol Direct HDL Cholesterol Urine WBC (Auto) Urine Creatinine Urine Total Protein Vancomycin Trough Rheumatoid Factor Complement C4 Crossmatch 09/11/16 09/12/16 09/12/16 23:52 05:09 05:32 WBC RBC Hgb Hct MCV MCH MCHC RDW Plt Count Lymph % (Auto) [place] % (Auto) Lymph # [place] # Seg Neutrophils % Seg Neuts % (Manual) Lymphocytes % (Manual) Monocytes % (Manual) Eosinophils % (Manual) Basophils % (Manual) Nucleated RBC % Seg Neutrophils # Seg Neutrophils # Man Lymphocytes # (Manual) Monocytes # (Manual) Eosinophils # (Manual) Fibrinogen dRVVT Confirm Interp Factor V Activity POC ABG pH POC ABG pCO2 34.6 L POC ABG pO2 Sodium Potassium Chloride Carbon Dioxide BUN Creatinine Glucose POC Glucose 265 H 184 H Lactic Acid Calcium Phosphorus Magnesium Direct Bilirubin Troponin T C-Reactive Protein Total Protein Albumin Triglycerides Cholesterol LDL Cholesterol Direct HDL Cholesterol Urine WBC (Auto) Urine Creatinine Urine Total Protein Vancomycin Trough Rheumatoid Factor Complement C4 Crossmatch 09/12/16 09/12/16 09/12/16 06:45 06:45 07:22 WBC 31.7 H RBC 3.54 L Hgb 8.3 L Hct 25.9 L MCV 73 L MCH 23 L MCHC RDW 18.9 H Plt Count Lymph % (Auto) [place] % (Auto) Lymph # [place] # Seg Neutrophils % Seg Neuts % (Manual) 88.5 H Lymphocytes % (Manual) 4.5 L Monocytes % (Manual) Eosinophils % (Manual) Basophils % (Manual) Nucleated RBC % Seg Neutrophils # Seg Neutrophils # Man 28.1 H Lymphocytes # (Manual) Monocytes # (Manual) 1.0 H Eosinophils # (Manual) Fibrinogen dRVVT Confirm Interp Factor V Activity POC ABG pH POC ABG pCO2 POC ABG pO2 Sodium Potassium Chloride Carbon Dioxide 20 L BUN 115 H Creatinine 2.7 H Glucose 165 H POC Glucose Lactic Acid Calcium 8.0 L Phosphorus Magnesium Direct Bilirubin Troponin T C-Reactive Protein Total Protein Albumin Triglycerides 217 H Cholesterol LDL Cholesterol Direct HDL Cholesterol Urine WBC (Auto) Urine Creatinine Urine Total Protein Vancomycin Trough Rheumatoid Factor Complement C4 Crossmatch 09/12/16 09/12/16 09/12/16 07:22 09:59 12:21 WBC RBC Hgb Hct MCV MCH MCHC RDW Plt Count Lymph % (Auto) [place] % (Auto) Lymph # [place] # Seg Neutrophils % Seg Neuts % (Manual) Lymphocytes % (Manual) Monocytes % (Manual) Eosinophils % (Manual) Basophils % (Manual) Nucleated RBC % Seg Neutrophils # Seg Neutrophils # Man Lymphocytes # (Manual) Monocytes # (Manual) Eosinophils # (Manual) Fibrinogen dRVVT Confirm Interp Positive H Factor V Activity POC ABG pH POC ABG pCO2 POC ABG pO2 Sodium Potassium Chloride Carbon Dioxide BUN Creatinine Glucose POC Glucose 224 H Lactic Acid Calcium Phosphorus Magnesium Direct Bilirubin Troponin T C-Reactive Protein 1.70 H Total Protein Albumin Triglycerides Cholesterol LDL Cholesterol Direct HDL Cholesterol Urine WBC (Auto) Urine Creatinine Urine Total Protein Vancomycin Trough Rheumatoid Factor Complement C4 Crossmatch 09/12/16 09/12/16 09/13/16 16:51 23:28 04:00 WBC 45.0 H* RBC Hgb 9.4 L Hct MCV 75 L MCH 23 L MCHC RDW 19.0 H Plt Count 470 H Lymph % (Auto) [place] % (Auto) Lymph # [place] # Seg Neutrophils % Seg Neuts % (Manual) 89.0 H Lymphocytes % (Manual) 5.0 L Monocytes % (Manual) Eosinophils % (Manual) Basophils % (Manual) Nucleated RBC % Seg Neutrophils # Seg Neutrophils # Man 40.1 H Lymphocytes # (Manual) Monocytes # (Manual) Eosinophils # (Manual) Fibrinogen dRVVT Confirm Interp Factor V Activity POC ABG pH POC ABG pCO2 POC ABG pO2 Sodium Potassium Chloride Carbon Dioxide BUN Creatinine Glucose POC Glucose 169 H 150 H Lactic Acid Calcium Phosphorus Magnesium Direct Bilirubin Troponin T C-Reactive Protein Total Protein Albumin Triglycerides Cholesterol LDL Cholesterol Direct HDL Cholesterol Urine WBC (Auto) Urine Creatinine Urine Total Protein Vancomycin Trough Rheumatoid Factor Complement C4 Crossmatch 09/13/16 09/13/16 09/13/16 04:00 11:26 17:31 WBC RBC Hgb Hct MCV MCH MCHC RDW Plt Count Lymph % (Auto) [place] % (Auto) Lymph # [place] # Seg Neutrophils % Seg Neuts % (Manual) Lymphocytes % (Manual) Monocytes % (Manual) Eosinophils % (Manual) Basophils % (Manual) Nucleated RBC % Seg Neutrophils # Seg Neutrophils # Man Lymphocytes # (Manual) Monocytes # (Manual) Eosinophils # (Manual) Fibrinogen dRVVT Confirm Interp Factor V Activity POC ABG pH POC ABG pCO2 POC ABG pO2 Sodium Potassium Chloride Carbon Dioxide 20 L BUN 116 H Creatinine 3.0 H Glucose 172 H POC Glucose 140 H 183 H Lactic Acid Calcium Phosphorus Magnesium Direct Bilirubin Troponin T C-Reactive Protein Total Protein 6.2 L Albumin 2.9 L Triglycerides Cholesterol LDL Cholesterol Direct HDL Cholesterol Urine WBC (Auto) Urine Creatinine Urine Total Protein Vancomycin Trough Rheumatoid Factor Complement C4 Crossmatch 09/13/16 09/14/16 09/14/16 23:23 04:06 04:07 WBC 29.4 H RBC Hgb 8.9 L Hct 27.3 L MCV 75 L MCH 24 L MCHC RDW 19.1 H Plt Count Lymph % (Auto) [place] % (Auto) Lymph # [place] # Seg Neutrophils % Seg Neuts % (Manual) 84.0 H Lymphocytes % (Manual) 6.0 L Monocytes % (Manual) 9.0 H Eosinophils % (Manual) Basophils % (Manual) Nucleated RBC % Seg Neutrophils # Seg Neutrophils # Man 24.7 H Lymphocytes # (Manual) Monocytes # (Manual) 2.6 H Eosinophils # (Manual) Fibrinogen dRVVT Confirm Interp Factor V Activity POC ABG pH 7.342 L POC ABG pCO2 POC ABG pO2 116 H Sodium Potassium Chloride Carbon Dioxide BUN Creatinine Glucose POC Glucose 154 H Lactic Acid Calcium Phosphorus Magnesium Direct Bilirubin Troponin T C-Reactive Protein Total Protein Albumin Triglycerides Cholesterol LDL Cholesterol Direct HDL Cholesterol Urine WBC (Auto) Urine Creatinine Urine Total Protein Vancomycin Trough Rheumatoid Factor Complement C4 Crossmatch 09/14/16 09/14/16 09/14/16 04:07 05:29 12:19 WBC RBC Hgb Hct MCV MCH MCHC RDW Plt Count Lymph % (Auto) [place] % (Auto) Lymph # [place] # Seg Neutrophils % Seg Neuts % (Manual) Lymphocytes % (Manual) Monocytes % (Manual) Eosinophils % (Manual) Basophils % (Manual) Nucleated RBC % Seg Neutrophils # Seg Neutrophils # Man Lymphocytes # (Manual) Monocytes # (Manual) Eosinophils # (Manual) Fibrinogen dRVVT Confirm Interp Factor V Activity POC ABG pH POC ABG pCO2 POC ABG pO2 Sodium 136 L Potassium Chloride Carbon Dioxide 18 L BUN 121 H Creatinine 2.8 H Glucose 214 H POC Glucose 239 H 181 H Lactic Acid Calcium Phosphorus Magnesium Direct Bilirubin Troponin T C-Reactive Protein Total Protein Albumin Triglycerides Cholesterol LDL Cholesterol Direct HDL Cholesterol Urine WBC (Auto) Urine Creatinine Urine Total Protein Vancomycin Trough Rheumatoid Factor Complement C4 Crossmatch 09/14/16 09/14/16 09/15/16 18:12 23:37 05:00 WBC 26.1 H RBC 3.05 L Hgb 7.2 L Hct 22.9 L MCV 75 L MCH 24 L MCHC RDW 19.0 H Plt Count Lymph % (Auto) [place] % (Auto) Lymph # [place] # Seg Neutrophils % Seg Neuts % (Manual) Lymphocytes % (Manual) Monocytes % (Manual) Eosinophils % (Manual) Basophils % (Manual) Nucleated RBC % Seg Neutrophils # Seg Neutrophils # Man Lymphocytes # (Manual) Monocytes # (Manual) Eosinophils # (Manual) Fibrinogen dRVVT Confirm Interp Factor V Activity POC ABG pH POC ABG pCO2 POC ABG pO2 Sodium Potassium Chloride Carbon Dioxide BUN Creatinine Glucose POC Glucose 266 H 154 H Lactic Acid Calcium Phosphorus Magnesium Direct Bilirubin Troponin T C-Reactive Protein Total Protein Albumin Triglycerides Cholesterol LDL Cholesterol Direct HDL Cholesterol Urine WBC (Auto) Urine Creatinine Urine Total Protein Vancomycin Trough Rheumatoid Factor Complement C4 Crossmatch 09/15/16 09/15/16 09/15/16 05:00 05:17 12:45 WBC RBC Hgb Hct MCV MCH MCHC RDW Plt Count Lymph % (Auto) [place] % (Auto) Lymph # [place] # Seg Neutrophils % Seg Neuts % (Manual) Lymphocytes % (Manual) Monocytes % (Manual) Eosinophils % (Manual) Basophils % (Manual) Nucleated RBC % Seg Neutrophils # Seg Neutrophils # Man Lymphocytes # (Manual) Monocytes # (Manual) Eosinophils # (Manual) Fibrinogen dRVVT Confirm Interp Factor V Activity POC ABG pH POC ABG pCO2 POC ABG pO2 Sodium Potassium 5.2 H Chloride Carbon Dioxide 18 L BUN 139 H Creatinine 3.7 H Glucose 227 H POC Glucose 226 H 244 H Lactic Acid Calcium 8.3 L Phosphorus Magnesium Direct Bilirubin Troponin T C-Reactive Protein Total Protein Albumin Triglycerides Cholesterol LDL Cholesterol Direct HDL Cholesterol Urine WBC (Auto) Urine Creatinine Urine Total Protein Vancomycin Trough Rheumatoid Factor Complement C4 Crossmatch 09/15/16 09/15/16 09/15/16 14:32 17:33 23:35 WBC RBC Hgb Hct MCV MCH MCHC RDW Plt Count Lymph % (Auto) [place] % (Auto) Lymph # [place] # Seg Neutrophils % Seg Neuts % (Manual) Lymphocytes % (Manual) Monocytes % (Manual) Eosinophils % (Manual) Basophils % (Manual) Nucleated RBC % Seg Neutrophils # Seg Neutrophils # Man Lymphocytes # (Manual) Monocytes # (Manual) Eosinophils # (Manual) Fibrinogen dRVVT Confirm Interp Factor V Activity POC ABG pH POC ABG pCO2 27.7 L POC ABG pO2 120 H Sodium Potassium Chloride Carbon Dioxide BUN Creatinine Glucose POC Glucose 232 H 167 H Lactic Acid Calcium Phosphorus Magnesium Direct Bilirubin Troponin T C-Reactive Protein Total Protein Albumin Triglycerides Cholesterol LDL Cholesterol Direct HDL Cholesterol Urine WBC (Auto) Urine Creatinine Urine Total Protein Vancomycin Trough Rheumatoid Factor Complement C4 Crossmatch 09/16/16 09/16/16 09/16/16 03:58 10:27 10:27 WBC 19.0 H RBC 2.77 L Hgb 6.5 L Hct 20.9 L MCV 76 L MCH 23 L MCHC RDW 19.3 H Plt Count Lymph % (Auto) 11.0 L [place] % (Auto) Lymph # [place] # 1.1 H Seg Neutrophils % 82.5 H Seg Neuts % (Manual) Lymphocytes % (Manual) Monocytes % (Manual) Eosinophils % (Manual) Basophils % (Manual) Nucleated RBC % Seg Neutrophils # 15.7 H Seg Neutrophils # Man Lymphocytes # (Manual) Monocytes # (Manual) Eosinophils # (Manual) Fibrinogen dRVVT Confirm Interp Factor V Activity POC ABG pH POC ABG pCO2 POC ABG pO2 Sodium Potassium Chloride 109.3 H Carbon Dioxide 18 L BUN 139 H Creatinine 4.1 H Glucose 144 H POC Glucose 146 H Lactic Acid Calcium 8.1 L Phosphorus Magnesium Direct Bilirubin Troponin T C-Reactive Protein Total Protein Albumin Triglycerides Cholesterol LDL Cholesterol Direct HDL Cholesterol Urine WBC (Auto) Urine Creatinine Urine Total Protein Vancomycin Trough Rheumatoid Factor Complement C4 Crossmatch 09/16/16 09/16/16 09/16/16 12:04 12:10 13:55 WBC RBC Hgb Hct MCV MCH MCHC RDW Plt Count Lymph % (Auto) [place] % (Auto) Lymph # [place] # Seg Neutrophils % Seg Neuts % (Manual) Lymphocytes % (Manual) Monocytes % (Manual) Eosinophils % (Manual) Basophils % (Manual) Nucleated RBC % Seg Neutrophils # Seg Neutrophils # Man Lymphocytes # (Manual) Monocytes # (Manual) Eosinophils # (Manual) Fibrinogen dRVVT Confirm Interp Factor V Activity POC ABG pH POC ABG pCO2 32.9 L POC ABG pO2 Sodium Potassium Chloride Carbon Dioxide BUN Creatinine Glucose POC Glucose 185 H Lactic Acid Calcium Phosphorus Magnesium Direct Bilirubin Troponin T C-Reactive Protein Total Protein Albumin Triglycerides Cholesterol LDL Cholesterol Direct HDL Cholesterol Urine WBC (Auto) Urine Creatinine Urine Total Protein Vancomycin Trough Rheumatoid Factor Complement C4 Crossmatch See Detail 09/16/16 09/16/16 09/16/16 17:55 19:19 23:48 WBC RBC Hgb Hct MCV MCH MCHC RDW Plt Count Lymph % (Auto) [place] % (Auto) Lymph # [place] # Seg Neutrophils % Seg Neuts % (Manual) Lymphocytes % (Manual) Monocytes % (Manual) Eosinophils % (Manual) Basophils % (Manual) Nucleated RBC % Seg Neutrophils # Seg Neutrophils # Man Lymphocytes # (Manual) Monocytes # (Manual) Eosinophils # (Manual) Fibrinogen dRVVT Confirm Interp Factor V Activity POC ABG pH POC ABG pCO2 POC ABG pO2 Sodium Potassium Chloride Carbon Dioxide BUN Creatinine Glucose POC Glucose 222 H 107 H Lactic Acid Calcium Phosphorus Magnesium Direct Bilirubin Troponin T C-Reactive Protein Total Protein Albumin Triglycerides Cholesterol LDL Cholesterol Direct HDL Cholesterol Urine WBC (Auto) Urine Creatinine 47.4 H Urine Total Protein 16 H Vancomycin Trough Rheumatoid Factor Complement C4 Crossmatch 09/17/16 09/17/16 09/17/16 03:45 03:45 04:55 WBC 19.6 H RBC 3.41 L Hgb 8.5 L Hct 26.7 L MCV 78 L MCH 25 L MCHC RDW 19.9 H Plt Count Lymph % (Auto) 9.3 L [place] % (Auto) Lymph # [place] # 1.2 H Seg Neutrophils % 83.9 H Seg Neuts % (Manual) Lymphocytes % (Manual) Monocytes % (Manual) Eosinophils % (Manual) Basophils % (Manual) Nucleated RBC % Seg Neutrophils # 16.4 H Seg Neutrophils # Man Lymphocytes # (Manual) Monocytes # (Manual) Eosinophils # (Manual) Fibrinogen dRVVT Confirm Interp Factor V Activity POC ABG pH POC ABG pCO2 POC ABG pO2 Sodium 146 H Potassium 5.1 H Chloride 110.9 H Carbon Dioxide 16 L BUN 146 H Creatinine 4.0 H Glucose 108 H POC Glucose 133 H Lactic Acid Calcium Phosphorus Magnesium 3.00 H Direct Bilirubin Troponin T C-Reactive Protein Total Protein Albumin Triglycerides Cholesterol LDL Cholesterol Direct HDL Cholesterol Urine WBC (Auto) Urine Creatinine Urine Total Protein Vancomycin Trough Rheumatoid Factor Complement C4 Crossmatch 09/17/16 09/17/16 09/17/16 11:15 17:33 23:47 WBC RBC Hgb Hct MCV MCH MCHC RDW Plt Count Lymph % (Auto) [place] % (Auto) Lymph # [place] # Seg Neutrophils % Seg Neuts % (Manual) Lymphocytes % (Manual) Monocytes % (Manual) Eosinophils % (Manual) Basophils % (Manual) Nucleated RBC % Seg Neutrophils # Seg Neutrophils # Man Lymphocytes # (Manual) Monocytes # (Manual) Eosinophils # (Manual) Fibrinogen dRVVT Confirm Interp Factor V Activity POC ABG pH POC ABG pCO2 POC ABG pO2 Sodium Potassium Chloride Carbon Dioxide BUN Creatinine Glucose POC Glucose 176 H 246 H 148 H Lactic Acid Calcium Phosphorus Magnesium Direct Bilirubin Troponin T C-Reactive Protein Total Protein Albumin Triglycerides Cholesterol LDL Cholesterol Direct HDL Cholesterol Urine WBC (Auto) Urine Creatinine Urine Total Protein Vancomycin Trough Rheumatoid Factor Complement C4 Crossmatch 09/18/16 09/18/16 09/18/16 05:33 08:31 08:31 WBC 18.0 H RBC 3.17 L Hgb 9.0 L Hct 25.7 L MCV MCH MCHC 35 H RDW 20.4 H Plt Count Lymph % (Auto) [place] % (Auto) Lymph # [place] # Seg Neutrophils % Seg Neuts % (Manual) Lymphocytes % (Manual) Monocytes % (Manual) Eosinophils % (Manual) Basophils % (Manual) Nucleated RBC % Seg Neutrophils # Seg Neutrophils # Man Lymphocytes # (Manual) Monocytes # (Manual) Eosinophils # (Manual) Fibrinogen dRVVT Confirm Interp Factor V Activity POC ABG pH POC ABG pCO2 POC ABG pO2 Sodium Potassium Chloride Carbon Dioxide 15 L BUN 124 H Creatinine 3.8 H Glucose POC Glucose 120 H Lactic Acid Calcium 8.1 L Phosphorus Magnesium Direct Bilirubin Troponin T C-Reactive Protein Total Protein Albumin Triglycerides Cholesterol LDL Cholesterol Direct HDL Cholesterol Urine WBC (Auto) Urine Creatinine Urine Total Protein Vancomycin Trough Rheumatoid Factor Complement C4 Crossmatch 09/18/16 09/18/16 09/18/16 12:03 15:34 17:50 WBC RBC Hgb Hct MCV MCH MCHC RDW Plt Count Lymph % (Auto) [place] % (Auto) Lymph # [place] # Seg Neutrophils % Seg Neuts % (Manual) Lymphocytes % (Manual) Monocytes % (Manual) Eosinophils % (Manual) Basophils % (Manual) Nucleated RBC % Seg Neutrophils # Seg Neutrophils # Man Lymphocytes # (Manual) Monocytes # (Manual) Eosinophils # (Manual) Fibrinogen dRVVT Confirm Interp Factor V Activity POC ABG pH POC ABG pCO2 25.7 L POC ABG pO2 66 L Sodium Potassium Chloride Carbon Dioxide BUN Creatinine Glucose POC Glucose 156 H 220 H Lactic Acid Calcium Phosphorus Magnesium Direct Bilirubin Troponin T C-Reactive Protein Total Protein Albumin Triglycerides Cholesterol LDL Cholesterol Direct HDL Cholesterol Urine WBC (Auto) Urine Creatinine Urine Total Protein Vancomycin Trough Rheumatoid Factor Complement C4 Crossmatch 09/19/16 09/19/16 09/19/16 06:21 09:50 09:50 WBC 17.1 H RBC 3.49 L Hgb 9.0 L Hct 28.1 L MCV MCH 26 L MCHC RDW 20.8 H Plt Count Lymph % (Auto) 11.5 L [place] % (Auto) 7.5 H Lymph # [place] # 1.3 H Seg Neutrophils % 79.8 H Seg Neuts % (Manual) Lymphocytes % (Manual) Monocytes % (Manual) Eosinophils % (Manual) Basophils % (Manual) Nucleated RBC % Seg Neutrophils # 13.7 H Seg Neutrophils # Man Lymphocytes # (Manual) Monocytes # (Manual) Eosinophils # (Manual) Fibrinogen dRVVT Confirm Interp Factor V Activity POC ABG pH POC ABG pCO2 POC ABG pO2 Sodium Potassium Chloride 108.6 H Carbon Dioxide 15 L BUN 125 H Creatinine 4.1 H Glucose 124 H POC Glucose 119 H Lactic Acid Calcium Phosphorus Magnesium Direct Bilirubin Troponin T C-Reactive Protein Total Protein Albumin Triglycerides Cholesterol LDL Cholesterol Direct HDL Cholesterol Urine WBC (Auto) Urine Creatinine Urine Total Protein Vancomycin Trough Rheumatoid Factor Complement C4 Crossmatch 09/19/16 09/19/16 09/19/16 11:25 17:53 23:36 WBC RBC Hgb Hct MCV MCH MCHC RDW Plt Count Lymph % (Auto) [place] % (Auto) Lymph # [place] # Seg Neutrophils % Seg Neuts % (Manual) Lymphocytes % (Manual) Monocytes % (Manual) Eosinophils % (Manual) Basophils % (Manual) Nucleated RBC % Seg Neutrophils # Seg Neutrophils # Man Lymphocytes # (Manual) Monocytes # (Manual) Eosinophils # (Manual) Fibrinogen dRVVT Confirm Interp Factor V Activity POC ABG pH POC ABG pCO2 POC ABG pO2 Sodium Potassium Chloride Carbon Dioxide BUN Creatinine Glucose POC Glucose 160 H 245 H 121 H Lactic Acid Calcium Phosphorus Magnesium Direct Bilirubin Troponin T C-Reactive Protein Total Protein Albumin Triglycerides Cholesterol LDL Cholesterol Direct HDL Cholesterol Urine WBC (Auto) Urine Creatinine Urine Total Protein Vancomycin Trough Rheumatoid Factor Complement C4 Crossmatch 09/20/16 09/20/16 09/20/16 04:10 04:10 04:10 WBC 17.0 H RBC 3.21 L Hgb 8.2 L Hct 25.5 L MCV MCH 26 L MCHC RDW 20.9 H Plt Count Lymph % (Auto) [place] % (Auto) Lymph # [place] # Seg Neutrophils % Seg Neuts % (Manual) Lymphocytes % (Manual) Monocytes % (Manual) Eosinophils % (Manual) Basophils % (Manual) Nucleated RBC % Seg Neutrophils # Seg Neutrophils # Man Lymphocytes # (Manual) Monocytes # (Manual) Eosinophils # (Manual) Fibrinogen dRVVT Confirm Interp Factor V Activity POC ABG pH POC ABG pCO2 POC ABG pO2 Sodium Potassium Chloride 111.0 H Carbon Dioxide 16 L BUN 129 H Creatinine 3.7 H Glucose 115 H POC Glucose Lactic Acid Calcium 8.2 L Phosphorus Magnesium Direct Bilirubin Troponin T C-Reactive Protein Total Protein Albumin Triglycerides 243 H Cholesterol LDL Cholesterol Direct HDL Cholesterol Urine WBC (Auto) Urine Creatinine Urine Total Protein Vancomycin Trough Rheumatoid Factor Complement C4 Crossmatch 09/20/16 09/20/16 09/20/16 05:40 11:52 16:50 WBC RBC Hgb Hct MCV MCH MCHC RDW Plt Count Lymph % (Auto) [place] % (Auto) Lymph # [place] # Seg Neutrophils % Seg Neuts % (Manual) Lymphocytes % (Manual) Monocytes % (Manual) Eosinophils % (Manual) Basophils % (Manual) Nucleated RBC % Seg Neutrophils # Seg Neutrophils # Man Lymphocytes # (Manual) Monocytes # (Manual) Eosinophils # (Manual) Fibrinogen dRVVT Confirm Interp Factor V Activity POC ABG pH POC ABG pCO2 POC ABG pO2 Sodium Potassium Chloride Carbon Dioxide BUN Creatinine Glucose POC Glucose 131 H 183 H 236 H Lactic Acid Calcium Phosphorus Magnesium Direct Bilirubin Troponin T C-Reactive Protein Total Protein Albumin Triglycerides Cholesterol LDL Cholesterol Direct HDL Cholesterol Urine WBC (Auto) Urine Creatinine Urine Total Protein Vancomycin Trough Rheumatoid Factor Complement C4 Crossmatch 09/20/16 09/21/16 09/21/16 23:51 03:30 04:44 WBC RBC Hgb Hct MCV MCH MCHC RDW Plt Count Lymph % (Auto) [place] % (Auto) Lymph # [place] # Seg Neutrophils % Seg Neuts % (Manual) Lymphocytes % (Manual) Monocytes % (Manual) Eosinophils % (Manual) Basophils % (Manual) Nucleated RBC % Seg Neutrophils # Seg Neutrophils # Man Lymphocytes # (Manual) Monocytes # (Manual) Eosinophils # (Manual) Fibrinogen dRVVT Confirm Interp Factor V Activity POC ABG pH POC ABG pCO2 POC ABG pO2 Sodium Potassium Chloride Carbon Dioxide BUN Creatinine Glucose POC Glucose 114 H 141 H Lactic Acid Calcium Phosphorus Magnesium 2.70 H Direct Bilirubin Troponin T C-Reactive Protein Total Protein Albumin Triglycerides Cholesterol LDL Cholesterol Direct HDL Cholesterol Urine WBC (Auto) Urine Creatinine Urine Total Protein Vancomycin Trough Rheumatoid Factor Complement C4 Crossmatch 09/21/16 09/21/16 09/21/16 07:45 07:45 10:01 WBC 13.8 H RBC 2.94 L Hgb 7.5 L Hct 23.5 L MCV MCH 26 L MCHC RDW 21.2 H Plt Count Lymph % (Auto) 6.9 L [place] % (Auto) 9.4 H Lymph # 0.9 L [place] # 1.3 H Seg Neutrophils % 83.2 H Seg Neuts % (Manual) Lymphocytes % (Manual) Monocytes % (Manual) Eosinophils % (Manual) Basophils % (Manual) Nucleated RBC % Seg Neutrophils # 11.5 H Seg Neutrophils # Man Lymphocytes # (Manual) Monocytes # (Manual) Eosinophils # (Manual) Fibrinogen dRVVT Confirm Interp Factor V Activity POC ABG pH 7.308 L POC ABG pCO2 31.9 L POC ABG pO2 148 H Sodium 147 H Potassium Chloride 114.2 H Carbon Dioxide 15 L BUN 120 H Creatinine 3.9 H Glucose 156 H POC Glucose Lactic Acid Calcium 8.2 L Phosphorus Magnesium Direct Bilirubin Troponin T C-Reactive Protein Total Protein Albumin Triglycerides Cholesterol LDL Cholesterol Direct HDL Cholesterol Urine WBC (Auto) Urine Creatinine Urine Total Protein Vancomycin Trough Rheumatoid Factor Complement C4 Crossmatch 09/21/16 09/21/16 09/21/16 12:00 12:03 13:00 WBC RBC Hgb Hct MCV MCH MCHC RDW Plt Count Lymph % (Auto) [place] % (Auto) Lymph # [place] # Seg Neutrophils % Seg Neuts % (Manual) Lymphocytes % (Manual) Monocytes % (Manual) Eosinophils % (Manual) Basophils % (Manual) Nucleated RBC % Seg Neutrophils # Seg Neutrophils # Man Lymphocytes # (Manual) Monocytes # (Manual) Eosinophils # (Manual) Fibrinogen dRVVT Confirm Interp Factor V Activity POC ABG pH POC ABG pCO2 POC ABG pO2 Sodium Potassium Chloride Carbon Dioxide BUN Creatinine Glucose POC Glucose 163 H Lactic Acid Calcium Phosphorus Magnesium Direct Bilirubin Troponin T C-Reactive Protein Total Protein Albumin Triglycerides Cholesterol LDL Cholesterol Direct HDL Cholesterol Urine WBC (Auto) Urine Creatinine 54.8 H Urine Total Protein Vancomycin Trough 2.3 L Rheumatoid Factor Complement C4 Crossmatch 09/21/16 09/21/16 09/22/16 16:51 23:17 06:27 WBC RBC Hgb Hct MCV MCH MCHC RDW Plt Count Lymph % (Auto) [place] % (Auto) Lymph # [place] # Seg Neutrophils % Seg Neuts % (Manual) Lymphocytes % (Manual) Monocytes % (Manual) Eosinophils % (Manual) Basophils % (Manual) Nucleated RBC % Seg Neutrophils # Seg Neutrophils # Man Lymphocytes # (Manual) Monocytes # (Manual) Eosinophils # (Manual) Fibrinogen dRVVT Confirm Interp Factor V Activity POC ABG pH POC ABG pCO2 POC ABG pO2 Sodium Potassium Chloride Carbon Dioxide BUN Creatinine Glucose POC Glucose 206 H 114 H 115 H Lactic Acid Calcium Phosphorus Magnesium Direct Bilirubin Troponin T C-Reactive Protein Total Protein Albumin Triglycerides Cholesterol LDL Cholesterol Direct HDL Cholesterol Urine WBC (Auto) Urine Creatinine Urine Total Protein Vancomycin Trough Rheumatoid Factor Complement C4 Crossmatch 09/22/16 09/22/16 09/22/16 07:50 07:50 12:00 WBC 17.8 H RBC 3.04 L Hgb 8.0 L Hct 24.7 L MCV MCH 26 L MCHC RDW 21.6 H Plt Count Lymph % (Auto) [place] % (Auto) Lymph # [place] # Seg Neutrophils % Seg Neuts % (Manual) Lymphocytes % (Manual) Monocytes % (Manual) Eosinophils % (Manual) Basophils % (Manual) Nucleated RBC % Seg Neutrophils # Seg Neutrophils # Man Lymphocytes # (Manual) Monocytes # (Manual) Eosinophils # (Manual) Fibrinogen dRVVT Confirm Interp Factor V Activity POC ABG pH POC ABG pCO2 POC ABG pO2 Sodium 150 H Potassium Chloride 118.2 H Carbon Dioxide 14 L BUN 111 H Creatinine 3.7 H Glucose 157 H POC Glucose 183 H Lactic Acid Calcium Phosphorus Magnesium Direct Bilirubin Troponin T C-Reactive Protein Total Protein Albumin Triglycerides Cholesterol LDL Cholesterol Direct HDL Cholesterol Urine WBC (Auto) Urine Creatinine Urine Total Protein Vancomycin Trough Rheumatoid Factor Complement C4 Crossmatch 09/22/16 09/22/16 09/23/16 17:29 23:10 05:00 WBC 19.2 H RBC 3.13 L Hgb 8.0 L Hct 25.2 L MCV MCH 26 L MCHC RDW 22.1 H Plt Count Lymph % (Auto) [place] % (Auto) Lymph # [place] # Seg Neutrophils % Seg Neuts % (Manual) 92.0 H Lymphocytes % (Manual) 3.0 L Monocytes % (Manual) Eosinophils % (Manual) Basophils % (Manual) Nucleated RBC % Seg Neutrophils # Seg Neutrophils # Man 17.7 H Lymphocytes # (Manual) 0.6 L Monocytes # (Manual) Eosinophils # (Manual) Fibrinogen dRVVT Confirm Interp Factor V Activity POC ABG pH POC ABG pCO2 POC ABG pO2 Sodium Potassium Chloride Carbon Dioxide BUN Creatinine Glucose POC Glucose 197 H 169 H Lactic Acid Calcium Phosphorus Magnesium Direct Bilirubin Troponin T C-Reactive Protein Total Protein Albumin Triglycerides Cholesterol LDL Cholesterol Direct HDL Cholesterol Urine WBC (Auto) Urine Creatinine Urine Total Protein Vancomycin Trough Rheumatoid Factor Complement C4 Crossmatch 09/23/16 09/23/16 09/23/16 05:00 05:00 05:10 WBC RBC Hgb Hct MCV MCH MCHC RDW Plt Count Lymph % (Auto) [place] % (Auto) Lymph # [place] # Seg Neutrophils % Seg Neuts % (Manual) Lymphocytes % (Manual) Monocytes % (Manual) Eosinophils % (Manual) Basophils % (Manual) Nucleated RBC % Seg Neutrophils # Seg Neutrophils # Man Lymphocytes # (Manual) Monocytes # (Manual) Eosinophils # (Manual) Fibrinogen dRVVT Confirm Interp Factor V Activity POC ABG pH POC ABG pCO2 POC ABG pO2 Sodium 147 H Potassium 3.2 L Chloride 115.7 H Carbon Dioxide 13 L BUN 111 H Creatinine 3.8 H Glucose 194 H POC Glucose 188 H Lactic Acid Calcium 7.3 L D Phosphorus Magnesium Direct Bilirubin Troponin T C-Reactive Protein 3.20 H Total Protein Albumin Triglycerides Cholesterol LDL Cholesterol Direct HDL Cholesterol Urine WBC (Auto) Urine Creatinine Urine Total Protein Vancomycin Trough Rheumatoid Factor Complement C4 Crossmatch 09/23/16 09/23/16 09/23/16 11:37 12:29 18:01 WBC RBC Hgb Hct MCV MCH MCHC RDW Plt Count Lymph % (Auto) [place] % (Auto) Lymph # [place] # Seg Neutrophils % Seg Neuts % (Manual) Lymphocytes % (Manual) Monocytes % (Manual) Eosinophils % (Manual) Basophils % (Manual) Nucleated RBC % Seg Neutrophils # Seg Neutrophils # Man Lymphocytes # (Manual) Monocytes # (Manual) Eosinophils # (Manual) Fibrinogen dRVVT Confirm Interp Factor V Activity POC ABG pH POC ABG pCO2 18.9 L POC ABG pO2 143 H Sodium Potassium Chloride Carbon Dioxide BUN Creatinine Glucose POC Glucose 153 H 108 H Lactic Acid Calcium Phosphorus Magnesium Direct Bilirubin Troponin T C-Reactive Protein Total Protein Albumin Triglycerides Cholesterol LDL Cholesterol Direct HDL Cholesterol Urine WBC (Auto) Urine Creatinine Urine Total Protein Vancomycin Trough Rheumatoid Factor Complement C4 Crossmatch 09/23/16 09/23/16 09/24/16 21:19 23:43 05:16 WBC RBC Hgb Hct MCV MCH MCHC RDW Plt Count Lymph % (Auto) [place] % (Auto) Lymph # [place] # Seg Neutrophils % Seg Neuts % (Manual) Lymphocytes % (Manual) Monocytes % (Manual) Eosinophils % (Manual) Basophils % (Manual) Nucleated RBC % Seg Neutrophils # Seg Neutrophils # Man Lymphocytes # (Manual) Monocytes # (Manual) Eosinophils # (Manual) Fibrinogen dRVVT Confirm Interp Factor V Activity POC ABG pH POC ABG pCO2 17.3 L POC ABG pO2 112 H Sodium Potassium Chloride Carbon Dioxide BUN Creatinine Glucose POC Glucose 143 H 164 H Lactic Acid Calcium Phosphorus Magnesium Direct Bilirubin Troponin T C-Reactive Protein Total Protein Albumin Triglycerides Cholesterol LDL Cholesterol Direct HDL Cholesterol Urine WBC (Auto) Urine Creatinine Urine Total Protein Vancomycin Trough Rheumatoid Factor Complement C4 Crossmatch 09/24/16 09/24/16 09/24/16 05:21 11:58 17:06 WBC RBC Hgb Hct MCV MCH MCHC RDW Plt Count Lymph % (Auto) [place] % (Auto) Lymph # [place] # Seg Neutrophils % Seg Neuts % (Manual) Lymphocytes % (Manual) Monocytes % (Manual) Eosinophils % (Manual) Basophils % (Manual) Nucleated RBC % Seg Neutrophils # Seg Neutrophils # Man Lymphocytes # (Manual) Monocytes # (Manual) Eosinophils # (Manual) Fibrinogen dRVVT Confirm Interp Factor V Activity POC ABG pH POC ABG pCO2 POC ABG pO2 Sodium Potassium Chloride Carbon Dioxide 10 L BUN 103 H Creatinine 4.3 H Glucose 163 H POC Glucose 173 H 167 H Lactic Acid Calcium 6.5 L Phosphorus Magnesium Direct Bilirubin Troponin T C-Reactive Protein Total Protein Albumin Triglycerides Cholesterol LDL Cholesterol Direct HDL Cholesterol Urine WBC (Auto) Urine Creatinine Urine Total Protein Vancomycin Trough Rheumatoid Factor Complement C4 Crossmatch 09/24/16 09/24/16 09/24/16 20:15 21:02 23:48 WBC RBC Hgb Hct MCV MCH MCHC RDW Plt Count Lymph % (Auto) [place] % (Auto) Lymph # [place] # Seg Neutrophils % Seg Neuts % (Manual) Lymphocytes % (Manual) Monocytes % (Manual) Eosinophils % (Manual) Basophils % (Manual) Nucleated RBC % Seg Neutrophils # Seg Neutrophils # Man Lymphocytes # (Manual) Monocytes # (Manual) Eosinophils # (Manual) Fibrinogen dRVVT Confirm Interp Factor V Activity POC ABG pH 7.288 L POC ABG pCO2 30.2 L 21.5 L POC ABG pO2 32 L 39 L Sodium Potassium Chloride Carbon Dioxide BUN Creatinine Glucose POC Glucose 109 H Lactic Acid Calcium Phosphorus Magnesium Direct Bilirubin Troponin T C-Reactive Protein Total Protein Albumin Triglycerides Cholesterol LDL Cholesterol Direct HDL Cholesterol Urine WBC (Auto) Urine Creatinine Urine Total Protein Vancomycin Trough Rheumatoid Factor Complement C4 Crossmatch 09/25/16 09/25/16 09/25/16 04:20 04:20 04:20 WBC RBC 2.58 L Hgb 7.0 L Hct 21.0 L MCV MCH 27 L MCHC RDW 23.8 H Plt Count Lymph % (Auto) [place] % (Auto) Lymph # [place] # Seg Neutrophils % Seg Neuts % (Manual) Lymphocytes % (Manual) 12.0 L Monocytes % (Manual) Eosinophils % (Manual) 7.0 H Basophils % (Manual) 2.0 H Nucleated RBC % Seg Neutrophils # Seg Neutrophils # Man Lymphocytes # (Manual) 0.9 L Monocytes # (Manual) Eosinophils # (Manual) 0.5 H Fibrinogen dRVVT Confirm Interp Factor V Activity POC ABG pH POC ABG pCO2 POC ABG pO2 Sodium Potassium Chloride Carbon Dioxide 15 L BUN 72 H Creatinine 3.8 H Glucose POC Glucose Lactic Acid Calcium 6.0 L Phosphorus 4.60 H Magnesium 1.60 L Direct Bilirubin Troponin T C-Reactive Protein Total Protein Albumin Triglycerides Cholesterol LDL Cholesterol Direct HDL Cholesterol Urine WBC (Auto) Urine Creatinine Urine Total Protein Vancomycin Trough Rheumatoid Factor Complement C4 Crossmatch 09/25/16 09/25/16 09/25/16 04:57 08:02 10:30 WBC RBC Hgb Hct MCV MCH MCHC RDW Plt Count Lymph % (Auto) [place] % (Auto) Lymph # [place] # Seg Neutrophils % Seg Neuts % (Manual) Lymphocytes % (Manual) Monocytes % (Manual) Eosinophils % (Manual) Basophils % (Manual) Nucleated RBC % Seg Neutrophils # Seg Neutrophils # Man Lymphocytes # (Manual) Monocytes # (Manual) Eosinophils # (Manual) Fibrinogen dRVVT Confirm Interp Factor V Activity POC ABG pH POC ABG pCO2 24.7 L POC ABG pO2 152 H Sodium Potassium Chloride Carbon Dioxide BUN Creatinine Glucose POC Glucose 113 H Lactic Acid Calcium Phosphorus Magnesium Direct Bilirubin Troponin T C-Reactive Protein Total Protein Albumin Triglycerides Cholesterol LDL Cholesterol Direct HDL Cholesterol Urine WBC (Auto) Urine Creatinine Urine Total Protein Vancomycin Trough Rheumatoid Factor Complement C4 Crossmatch See Detail 09/25/16 09/25/16 09/25/16 12:05 17:44 23:47 WBC RBC Hgb Hct MCV MCH MCHC RDW Plt Count Lymph % (Auto) [place] % (Auto) Lymph # [place] # Seg Neutrophils % Seg Neuts % (Manual) Lymphocytes % (Manual) Monocytes % (Manual) Eosinophils % (Manual) Basophils % (Manual) Nucleated RBC % Seg Neutrophils # Seg Neutrophils # Man Lymphocytes # (Manual) Monocytes # (Manual) Eosinophils # (Manual) Fibrinogen dRVVT Confirm Interp Factor V Activity POC ABG pH POC ABG pCO2 POC ABG pO2 Sodium Potassium Chloride Carbon Dioxide BUN Creatinine Glucose POC Glucose 117 H 119 H 150 H Lactic Acid Calcium Phosphorus Magnesium Direct Bilirubin Troponin T C-Reactive Protein Total Protein Albumin Triglycerides Cholesterol LDL Cholesterol Direct HDL Cholesterol Urine WBC (Auto) Urine Creatinine Urine Total Protein Vancomycin Trough Rheumatoid Factor Complement C4 Crossmatch 09/26/16 09/26/16 09/26/16 04:25 04:25 04:25 WBC RBC 2.65 L Hgb 7.4 L Hct 21.6 L MCV MCH MCHC RDW 22.5 H Plt Count Lymph % (Auto) [place] % (Auto) Lymph # [place] # Seg Neutrophils % Seg Neuts % (Manual) Lymphocytes % (Manual) 6.0 L Monocytes % (Manual) Eosinophils % (Manual) 11.0 H Basophils % (Manual) Nucleated RBC % Seg Neutrophils # Seg Neutrophils # Man Lymphocytes # (Manual) 0.4 L Monocytes # (Manual) Eosinophils # (Manual) 0.6 H Fibrinogen dRVVT Confirm Interp Factor V Activity POC ABG pH POC ABG pCO2 POC ABG pO2 Sodium Potassium Chloride 97.0 L Carbon Dioxide 19 L BUN 43 H Creatinine 2.6 H Glucose 130 H POC Glucose Lactic Acid 4.40 H* Calcium 6.7 L Phosphorus Magnesium Direct Bilirubin Troponin T C-Reactive Protein Total Protein Albumin Triglycerides Cholesterol LDL Cholesterol Direct HDL Cholesterol Urine WBC (Auto) Urine Creatinine Urine Total Protein Vancomycin Trough Rheumatoid Factor Complement C4 Crossmatch 09/26/16 09/26/16 09/26/16 05:20 11:44 12:12 WBC RBC Hgb Hct MCV MCH MCHC RDW Plt Count Lymph % (Auto) [place] % (Auto) Lymph # [place] # Seg Neutrophils % Seg Neuts % (Manual) Lymphocytes % (Manual) Monocytes % (Manual) Eosinophils % (Manual) Basophils % (Manual) Nucleated RBC % Seg Neutrophils # Seg Neutrophils # Man Lymphocytes # (Manual) Monocytes # (Manual) Eosinophils # (Manual) Fibrinogen dRVVT Confirm Interp Factor V Activity POC ABG pH POC ABG pCO2 27.0 L POC ABG pO2 69 L Sodium Potassium Chloride Carbon Dioxide BUN Creatinine Glucose POC Glucose 121 H 128 H Lactic Acid Calcium Phosphorus Magnesium Direct Bilirubin Troponin T C-Reactive Protein Total Protein Albumin Triglycerides Cholesterol LDL Cholesterol Direct HDL Cholesterol Urine WBC (Auto) Urine Creatinine Urine Total Protein Vancomycin Trough Rheumatoid Factor Complement C4 Crossmatch 09/26/16 09/26/16 09/27/16 18:31 23:40 08:20 WBC RBC Hgb Hct MCV MCH MCHC RDW Plt Count Lymph % (Auto) [place] % (Auto) Lymph # [place] # Seg Neutrophils % Seg Neuts % (Manual) Lymphocytes % (Manual) Monocytes % (Manual) Eosinophils % (Manual) Basophils % (Manual) Nucleated RBC % Seg Neutrophils # Seg Neutrophils # Man Lymphocytes # (Manual) Monocytes # (Manual) Eosinophils # (Manual) Fibrinogen dRVVT Confirm Interp Factor V Activity POC ABG pH POC ABG pCO2 POC ABG pO2 Sodium Potassium Chloride Carbon Dioxide BUN Creatinine Glucose POC Glucose 120 H 133 H Lactic Acid 4.10 H* Calcium Phosphorus Magnesium Direct Bilirubin Troponin T C-Reactive Protein Total Protein Albumin Triglycerides Cholesterol LDL Cholesterol Direct HDL Cholesterol Urine WBC (Auto) Urine Creatinine Urine Total Protein Vancomycin Trough Rheumatoid Factor Complement C4 Crossmatch 09/27/16 09/27/16 09/27/16 11:23 15:00 18:15 WBC RBC Hgb Hct MCV MCH MCHC RDW Plt Count Lymph % (Auto) [place] % (Auto) Lymph # [place] # Seg Neutrophils % Seg Neuts % (Manual) Lymphocytes % (Manual) Monocytes % (Manual) Eosinophils % (Manual) Basophils % (Manual) Nucleated RBC % Seg Neutrophils # Seg Neutrophils # Man Lymphocytes # (Manual) Monocytes # (Manual) Eosinophils # (Manual) Fibrinogen dRVVT Confirm Interp Factor V Activity POC ABG pH 7.459 H POC ABG pCO2 27.1 L POC ABG pO2 140 H Sodium Potassium Chloride Carbon Dioxide BUN Creatinine Glucose POC Glucose 114 H 127 H Lactic Acid Calcium Phosphorus Magnesium Direct Bilirubin Troponin T C-Reactive Protein Total Protein Albumin Triglycerides Cholesterol LDL Cholesterol Direct HDL Cholesterol Urine WBC (Auto) Urine Creatinine Urine Total Protein Vancomycin Trough Rheumatoid Factor Complement C4 Crossmatch 09/27/16 09/27/16 09/28/16 Unknown Unknown 03:45 WBC RBC 2.49 L Hgb 6.8 L Hct 20.7 L MCV MCH 27 L MCHC RDW 22.1 H Plt Count Lymph % (Auto) [place] % (Auto) Lymph # [place] # Seg Neutrophils % Seg Neuts % (Manual) 32.0 L Lymphocytes % (Manual) 12.0 L Monocytes % (Manual) 11.0 H Eosinophils % (Manual) 10.0 H Basophils % (Manual) Nucleated RBC % Seg Neutrophils # Seg Neutrophils # Man Lymphocytes # (Manual) 1.0 L Monocytes # (Manual) 0.9 H Eosinophils # (Manual) 0.8 H Fibrinogen dRVVT Confirm Interp Factor V Activity POC ABG pH POC ABG pCO2 POC ABG pO2 Sodium 135 L 135 L Potassium 3.5 L Chloride 93.6 L 94.4 L Carbon Dioxide 17 L 21 L BUN 45 H 28 H Creatinine 3.3 H 2.5 H Glucose 106 H POC Glucose Lactic Acid Calcium 7.3 L 7.1 L Phosphorus Magnesium Direct Bilirubin Troponin T C-Reactive Protein Total Protein Albumin Triglycerides Cholesterol LDL Cholesterol Direct HDL Cholesterol Urine WBC (Auto) Urine Creatinine Urine Total Protein Vancomycin Trough Rheumatoid Factor Complement C4 Crossmatch 09/28/16 09/28/16 09/28/16 03:45 07:25 11:58 WBC 13.3 H RBC 3.01 L Hgb 8.4 L Hct 25.0 L MCV MCH MCHC RDW 20.5 H Plt Count 128 L Lymph % (Auto) [place] % (Auto) Lymph # [place] # Seg Neutrophils % Seg Neuts % (Manual) Lymphocytes % (Manual) 7.0 L Monocytes % (Manual) Eosinophils % (Manual) 6.0 H Basophils % (Manual) Nucleated RBC % Seg Neutrophils # Seg Neutrophils # Man Lymphocytes # (Manual) 0.9 L Monocytes # (Manual) Eosinophils # (Manual) 0.8 H Fibrinogen dRVVT Confirm Interp Factor V Activity POC ABG pH POC ABG pCO2 POC ABG pO2 Sodium Potassium Chloride Carbon Dioxide BUN Creatinine Glucose POC Glucose 121 H Lactic Acid 4.50 H* Calcium Phosphorus Magnesium Direct Bilirubin Troponin T C-Reactive Protein Total Protein Albumin Triglycerides Cholesterol LDL Cholesterol Direct HDL Cholesterol Urine WBC (Auto) Urine Creatinine Urine Total Protein Vancomycin Trough Rheumatoid Factor Complement C4 Crossmatch 09/29/16 09/29/16 09/29/16 06:45 06:45 06:45 WBC 14.9 H RBC 2.74 L Hgb 7.6 L Hct 23.2 L MCV MCH MCHC RDW 20.5 H Plt Count 81 L Lymph % (Auto) [place] % (Auto) Lymph # [place] # Seg Neutrophils % Seg Neuts % (Manual) 81.0 H Lymphocytes % (Manual) 4.0 L Monocytes % (Manual) Eosinophils % (Manual) Basophils % (Manual) Nucleated RBC % Seg Neutrophils # Seg Neutrophils # Man 12.1 H Lymphocytes # (Manual) 0.6 L Monocytes # (Manual) Eosinophils # (Manual) Fibrinogen dRVVT Confirm Interp Factor V Activity POC ABG pH POC ABG pCO2 POC ABG pO2 Sodium 133 L Potassium 3.4 L Chloride 92.5 L Carbon Dioxide 21 L BUN 33 H Creatinine 3.0 H Glucose POC Glucose Lactic Acid Calcium 6.6 L Phosphorus Magnesium 1.40 L Direct Bilirubin 0.9 H Troponin T C-Reactive Protein Total Protein 4.3 L Albumin 1.3 L Triglycerides Cholesterol LDL Cholesterol Direct HDL Cholesterol Urine WBC (Auto) Urine Creatinine Urine Total Protein Vancomycin Trough Rheumatoid Factor Complement C4 Crossmatch 09/29/16 09/29/16 09/30/16 17:52 20:12 00:07 WBC RBC Hgb Hct MCV MCH MCHC RDW Plt Count Lymph % (Auto) [place] % (Auto) Lymph # [place] # Seg Neutrophils % Seg Neuts % (Manual) Lymphocytes % (Manual) Monocytes % (Manual) Eosinophils % (Manual) Basophils % (Manual) Nucleated RBC % Seg Neutrophils # Seg Neutrophils # Man Lymphocytes # (Manual) Monocytes # (Manual) Eosinophils # (Manual) Fibrinogen dRVVT Confirm Interp Factor V Activity POC ABG pH POC ABG pCO2 POC ABG pO2 Sodium Potassium Chloride Carbon Dioxide BUN Creatinine Glucose POC Glucose 50 L 51 L Lactic Acid Calcium Phosphorus Magnesium Direct Bilirubin Troponin T 0.204 H* C-Reactive Protein Total Protein Albumin Triglycerides Cholesterol 31 L LDL Cholesterol Direct 4 L HDL Cholesterol 3 L Urine WBC (Auto) Urine Creatinine Urine Total Protein Vancomycin Trough Rheumatoid Factor Complement C4 Crossmatch 09/30/16 09/30/16 09/30/16 01:30 05:15 06:10 WBC RBC Hgb Hct MCV MCH MCHC RDW Plt Count Lymph % (Auto) [place] % (Auto) Lymph # [place] # Seg Neutrophils % Seg Neuts % (Manual) Lymphocytes % (Manual) Monocytes % (Manual) Eosinophils % (Manual) Basophils % (Manual) Nucleated RBC % Seg Neutrophils # Seg Neutrophils # Man Lymphocytes # (Manual) Monocytes # (Manual) Eosinophils # (Manual) Fibrinogen dRVVT Confirm Interp Factor V Activity POC ABG pH POC ABG pCO2 POC ABG pO2 Sodium 133 L Potassium 3.2 L Chloride 93.2 L Carbon Dioxide 19 L BUN 36 H Creatinine 3.2 H Glucose 104 H POC Glucose 167 H 146 H Lactic Acid Calcium 6.4 L Phosphorus Magnesium 1.60 L Direct Bilirubin Troponin T C-Reactive Protein Total Protein Albumin Triglycerides Cholesterol LDL Cholesterol Direct HDL Cholesterol Urine WBC (Auto) Urine Creatinine Urine Total Protein Vancomycin Trough Rheumatoid Factor Complement C4 Crossmatch 09/30/16 09/30/16 09/30/16 11:26 13:39 18:38 WBC RBC Hgb Hct MCV MCH MCHC RDW Plt Count Lymph % (Auto) [place] % (Auto) Lymph # [place] # Seg Neutrophils % Seg Neuts % (Manual) Lymphocytes % (Manual) Monocytes % (Manual) Eosinophils % (Manual) Basophils % (Manual) Nucleated RBC % Seg Neutrophils # Seg Neutrophils # Man Lymphocytes # (Manual) Monocytes # (Manual) Eosinophils # (Manual) Fibrinogen dRVVT Confirm Interp Factor V Activity POC ABG pH 7.479 H POC ABG pCO2 29.8 L POC ABG pO2 117 H Sodium Potassium Chloride Carbon Dioxide BUN Creatinine Glucose POC Glucose 140 H 122 H Lactic Acid Calcium Phosphorus Magnesium Direct Bilirubin Troponin T C-Reactive Protein Total Protein Albumin Triglycerides Cholesterol LDL Cholesterol Direct HDL Cholesterol Urine WBC (Auto) Urine Creatinine Urine Total Protein Vancomycin Trough Rheumatoid Factor Complement C4 Crossmatch 10/01/16 10/01/16 10/01/16 06:00 06:00 12:37 WBC 12.6 H RBC 2.75 L Hgb 7.3 L Hct 23.3 L MCV MCH 27 L MCHC RDW 20.6 H Plt Count 72 L Lymph % (Auto) [place] % (Auto) Lymph # [place] # Seg Neutrophils % Seg Neuts % (Manual) 31.0 L Lymphocytes % (Manual) 8.0 L Monocytes % (Manual) Eosinophils % (Manual) Basophils % (Manual) Nucleated RBC % 3.0 H Seg Neutrophils # Seg Neutrophils # Man Lymphocytes # (Manual) 1.0 L Monocytes # (Manual) Eosinophils # (Manual) Fibrinogen dRVVT Confirm Interp Factor V Activity POC ABG pH POC ABG pCO2 POC ABG pO2 Sodium 127 L Potassium Chloride 86.8 L Carbon Dioxide 20 L BUN 42 H Creatinine 3.5 H Glucose POC Glucose 65 L Lactic Acid Calcium 7.0 L Phosphorus Magnesium Direct Bilirubin Troponin T C-Reactive Protein Total Protein Albumin Triglycerides Cholesterol LDL Cholesterol Direct HDL Cholesterol Urine WBC (Auto) Urine Creatinine Urine Total Protein Vancomycin Trough Rheumatoid Factor Complement C4 Crossmatch 10/01/16 10/01/16 10/02/16 17:39 23:32 00:59 WBC RBC Hgb Hct MCV MCH MCHC RDW Plt Count Lymph % (Auto) [place] % (Auto) Lymph # [place] # Seg Neutrophils % Seg Neuts % (Manual) Lymphocytes % (Manual) Monocytes % (Manual) Eosinophils % (Manual) Basophils % (Manual) Nucleated RBC % Seg Neutrophils # Seg Neutrophils # Man Lymphocytes # (Manual) Monocytes # (Manual) Eosinophils # (Manual) Fibrinogen dRVVT Confirm Interp Factor V Activity POC ABG pH POC ABG pCO2 POC ABG pO2 Sodium Potassium Chloride Carbon Dioxide BUN Creatinine Glucose POC Glucose 107 H 52 L 145 H Lactic Acid Calcium Phosphorus Magnesium Direct Bilirubin Troponin T C-Reactive Protein Total Protein Albumin Triglycerides Cholesterol LDL Cholesterol Direct HDL Cholesterol Urine WBC (Auto) Urine Creatinine Urine Total Protein Vancomycin Trough Rheumatoid Factor Complement C4 Crossmatch 10/02/16 10/02/16 10/02/16 10:30 10:50 10:50 WBC 14.7 H RBC 2.76 L Hgb 7.4 L Hct 23.6 L MCV MCH 27 L MCHC RDW 20.2 H Plt Count 79 L Lymph % (Auto) [place] % (Auto) Lymph # [place] # Seg Neutrophils % Seg Neuts % (Manual) 86.0 H Lymphocytes % (Manual) 6.0 L Monocytes % (Manual) Eosinophils % (Manual) Basophils % (Manual) Nucleated RBC % Seg Neutrophils # Seg Neutrophils # Man 12.6 H Lymphocytes # (Manual) 0.9 L Monocytes # (Manual) Eosinophils # (Manual) Fibrinogen dRVVT Confirm Interp Factor V Activity POC ABG pH 7.486 H POC ABG pCO2 30.1 L POC ABG pO2 108 H Sodium 131 L Potassium 3.4 L Chloride 89.9 L Carbon Dioxide BUN 26 H Creatinine 2.6 H Glucose POC Glucose Lactic Acid Calcium 7.0 L Phosphorus Magnesium Direct Bilirubin Troponin T C-Reactive Protein Total Protein Albumin Triglycerides Cholesterol LDL Cholesterol Direct HDL Cholesterol Urine WBC (Auto) Urine Creatinine Urine Total Protein Vancomycin Trough Rheumatoid Factor Complement C4 Crossmatch 10/02/16 10/03/16 10/03/16 23:45 00:45 05:10 WBC 12.9 H RBC 2.77 L Hgb 7.6 L Hct 23.7 L MCV MCH 27 L MCHC RDW 19.7 H Plt Count 89 L Lymph % (Auto) [place] % (Auto) Lymph # [place] # Seg Neutrophils % Seg Neuts % (Manual) Lymphocytes % (Manual) 8.0 L Monocytes % (Manual) Eosinophils % (Manual) Basophils % (Manual) Nucleated RBC % Seg Neutrophils # 11.9 H Seg Neutrophils # Man Lymphocytes # (Manual) 1.0 L Monocytes # (Manual) Eosinophils # (Manual) Fibrinogen dRVVT Confirm Interp Factor V Activity POC ABG pH POC ABG pCO2 POC ABG pO2 Sodium Potassium Chloride Carbon Dioxide BUN Creatinine Glucose POC Glucose 55 L 199 H Lactic Acid Calcium Phosphorus Magnesium Direct Bilirubin Troponin T C-Reactive Protein Total Protein Albumin Triglycerides Cholesterol LDL Cholesterol Direct HDL Cholesterol Urine WBC (Auto) Urine Creatinine Urine Total Protein Vancomycin Trough Rheumatoid Factor Complement C4 Crossmatch 10/03/16 10/03/16 10/03/16 05:10 12:14 13:18 WBC RBC Hgb Hct MCV MCH MCHC RDW Plt Count Lymph % (Auto) [place] % (Auto) Lymph # [place] # Seg Neutrophils % Seg Neuts % (Manual) Lymphocytes % (Manual) Monocytes % (Manual) Eosinophils % (Manual) Basophils % (Manual) Nucleated RBC % Seg Neutrophils # Seg Neutrophils # Man Lymphocytes # (Manual) Monocytes # (Manual) Eosinophils # (Manual) Fibrinogen dRVVT Confirm Interp Factor V Activity POC ABG pH POC ABG pCO2 POC ABG pO2 Sodium 129 L Potassium 3.3 L Chloride 88.8 L Carbon Dioxide 20 L BUN 29 H Creatinine 2.8 H Glucose POC Glucose 68 L 127 H Lactic Acid Calcium 7.2 L Phosphorus Magnesium Direct Bilirubin Troponin T C-Reactive Protein Total Protein Albumin Triglycerides Cholesterol LDL Cholesterol Direct HDL Cholesterol Urine WBC (Auto) Urine Creatinine Urine Total Protein Vancomycin Trough Rheumatoid Factor Complement C4 Crossmatch 10/03/16 10/03/16 10/03/16 14:42 18:21 19:09 WBC RBC Hgb Hct MCV MCH MCHC RDW Plt Count Lymph % (Auto) Treasure % (Auto) Lymph # Treasure # Seg Neutrophils % Seg Neuts % (Manual) Lymphocytes % (Manual) Monocytes % (Manual) Eosinophils % (Manual) Basophils % (Manual) Nucleated RBC % Seg Neutrophils # Seg Neutrophils # Man Lymphocytes # (Manual) Monocytes # (Manual) Eosinophils # (Manual) Fibrinogen dRVVT Confirm Interp Factor V Activity POC ABG pH 7.499 H POC ABG pCO2 28.4 L POC ABG pO2 44 L Sodium Potassium Chloride Carbon Dioxide BUN Creatinine Glucose POC Glucose 64 L 205 H Lactic Acid Calcium Phosphorus Magnesium Direct Bilirubin Troponin T C-Reactive Protein Total Protein Albumin Triglycerides Cholesterol LDL Cholesterol Direct HDL Cholesterol Urine WBC (Auto) Urine Creatinine Urine Total Protein Vancomycin Trough Rheumatoid Factor Complement C4 Crossmatch 10/03/16 10/04/16 10/04/16 23:33 04:18 06:30 WBC RBC 2.54 L Hgb 7.1 L Hct 21.7 L MCV MCH MCHC RDW 19.5 H Plt Count 76 L Lymph % (Auto) Treasure % (Auto) Lymph # Treasure # Seg Neutrophils % Seg Neuts % (Manual) 88.0 H Lymphocytes % (Manual) 6.0 L Monocytes % (Manual) Eosinophils % (Manual) Basophils % (Manual) Nucleated RBC % Seg Neutrophils # Seg Neutrophils # Man 8.8 H Lymphocytes # (Manual) 0.6 L Monocytes # (Manual) Eosinophils # (Manual) Fibrinogen dRVVT Confirm Interp Factor V Activity POC ABG pH 7.461 H POC ABG pCO2 33.6 L POC ABG pO2 211 H Sodium Potassium Chloride Carbon Dioxide BUN Creatinine Glucose POC Glucose 136 H Lactic Acid Calcium Phosphorus Magnesium Direct Bilirubin Troponin T C-Reactive Protein Total Protein Albumin Triglycerides Cholesterol LDL Cholesterol Direct HDL Cholesterol Urine WBC (Auto) Urine Creatinine Urine Total Protein Vancomycin Trough Rheumatoid Factor Complement C4 Crossmatch 10/04/16 10/04/16 10/04/16 06:30 11:45 17:54 WBC RBC Hgb Hct MCV MCH MCHC RDW Plt Count Lymph % (Auto) Treasure % (Auto) Lymph # Treasure # Seg Neutrophils % Seg Neuts % (Manual) Lymphocytes % (Manual) Monocytes % (Manual) Eosinophils % (Manual) Basophils % (Manual) Nucleated RBC % Seg Neutrophils # Seg Neutrophils # Man Lymphocytes # (Manual) Monocytes # (Manual) Eosinophils # (Manual) Fibrinogen dRVVT Confirm Interp Factor V Activity POC ABG pH POC ABG pCO2 POC ABG pO2 Sodium 128 L Potassium Chloride 87.4 L Carbon Dioxide 20 L BUN 34 H Creatinine 2.9 H Glucose 127 H POC Glucose 158 H 160 H Lactic Acid Calcium 7.4 L Phosphorus Magnesium Direct Bilirubin Troponin T C-Reactive Protein Total Protein Albumin Triglycerides Cholesterol LDL Cholesterol Direct HDL Cholesterol Urine WBC (Auto) Urine Creatinine Urine Total Protein Vancomycin Trough Rheumatoid Factor Complement C4 Crossmatch 08/10/05/16 10/05/16 23:25 04:30 05:00 WBC RBC 2.64 L Hgb 7.5 L Hct 22.6 L MCV MCH MCHC RDW 19.3 H Plt Count 80 L Lymph % (Auto) Treasure % (Auto) Lymph # Treasure # Seg Neutrophils % Seg Neuts % (Manual) Lymphocytes % (Manual) 12.0 L Monocytes % (Manual) Eosinophils % (Manual) Basophils % (Manual) Nucleated RBC % Seg Neutrophils # Seg Neutrophils # Man Lymphocytes # (Manual) Monocytes # (Manual) Eosinophils # (Manual) Fibrinogen dRVVT Confirm Interp Factor V Activity POC ABG pH 7.475 H POC ABG pCO2 33.3 L POC ABG pO2 140 H Sodium Potassium Chloride Carbon Dioxide BUN Creatinine Glucose POC Glucose 141 H Lactic Acid Calcium Phosphorus Magnesium Direct Bilirubin Troponin T C-Reactive Protein Total Protein Albumin Triglycerides Cholesterol LDL Cholesterol Direct HDL Cholesterol Urine WBC (Auto) Urine Creatinine Urine Total Protein Vancomycin Trough Rheumatoid Factor Complement C4 Crossmatch 10/05/16 10/05/16 05:00 05:09 WBC RBC Hgb Hct MCV MCH MCHC RDW Plt Count Lymph % (Auto) Treasure % (Auto) Lymph # Treasure # Seg Neutrophils % Seg Neuts % (Manual) Lymphocytes % (Manual) Monocytes % (Manual) Eosinophils % (Manual) Basophils % (Manual) Nucleated RBC % Seg Neutrophils # Seg Neutrophils # Man Lymphocytes # (Manual) Monocytes # (Manual) Eosinophils # (Manual) Fibrinogen dRVVT Confirm Interp Factor V Activity POC ABG pH POC ABG pCO2 POC ABG pO2 Sodium 131 L Potassium Chloride 94.0 L Carbon Dioxide 20 L BUN 22 H Creatinine 2.0 H Glucose 123 H POC Glucose 166 H Lactic Acid Calcium 7.7 L Phosphorus 2.20 L D Magnesium Direct Bilirubin Troponin T C-Reactive Protein Total Protein Albumin Triglycerides Cholesterol LDL Cholesterol Direct HDL Cholesterol Urine WBC (Auto) Urine Creatinine Urine Total Protein Vancomycin Trough Rheumatoid Factor Complement C4 Crossmatch Allied health notes reviewed: RT
--- NOTE | 2016-10-05 12:34 | Consultation ---
History of Present Illness - Reason for Consult Consult date: 10/05/16 stroke - History of Present Illness called and discussed situation over the second stroke the problem is new on ther right side went over all issues in prolonged call to him Spoke to son Piero Past History Past Medical History: diabetes, hypertension, renal failure, other (Medical noncompliance) Past Surgical History: cholecystectomy (per chart review) Social history: other (per chart review, family denied any smoking or alcohol history on admission). denies: smoking, alcohol abuse, prescription drug abuse , IV drug use Family history: hypertension (per chart review) Medications and Allergies Allergies Allergy/AdvReac Type Severity Reaction Status Date / Time No Known Allergies Allergy Verified 04/14/15 06:02 Home Medications Medication Instructions Recorded Confirmed Last Taken Type Acetaminophen [Tylenol Arthritis] 650 mg PO QID PRN #30 tablet.er 02/15/1609/12 Unknown Rx Albuterol Sulfate [Proventil HFA] 6.7 gm INHALATION Q4-6H 02/15/16 09/12/16 History Insulin Glargine [Lantus VIAL] 30 units SQ QHS 02/15/16 09/12/16 02/15/16 History Clonidine HCl [Catapres] 0.3 mg PO TID #90 tablet 06/15/16 09/12/16 Unknown Rx Lisinopril [Zestril] 40 mg PO BID #60 tablet 06/15/16 09/12/16 Unknown Rx Polyethylene Glycol 3350 [Miralax 17 gm PO QDAY PRN #10 packet 06/15/16 Unknown Rx 3350] Albuterol 2 inhalation INHALATION Q4HR PRN 09/12/16 09/12/16 Unknown History AtorvaSTATin [Lipitor] 20 mg PO QHS 09/12/16 09/12/16 Unknown History Flovent 110 MCG/PUFF HFA 1 inhalation INHALATION QHS 09/12/16 09/12/16 Unknown History Furosemide [Lasix] 20 mg PO QDAY 09/12/16 09/12/16 Unknown History HumaLOG VIAL 45 units SUB-Q TID 09/12/16 09/12/16 Unknown History Insulin Aspart [NovoLOG Flexpen] 30 units SUB-Q TID MDD 30 Units 09/12/16 Unknown History Labetalol HCl 300 mg PO BID 09/12/16 09/12/16 Unknown History Spironolactone [Aldactone] 25 mg PO QDAY 09/12/16 09/12/16 Unknown History hydrALAZINE [Apresoline] 25 mg PO BID 09/12/16 09/12/16 Unknown History Active Meds: Active Medications Lipase/Protease/Amylase (Pancreaze Dr 10,500 Unit) 1 each FEEDTUBE PRN PRN PRN Reason: For Clogged Feeding Tube Aspirin (Aspirin) 325 mg PO QDAY [facility] Last Admin: 10/04/16 12:19 Dose: Not Given Atorvastatin Calcium (Lipitor) 40 mg PO QHS AGUSTIN Last Admin: 10/05/16 05:27 Dose: Not Given Epoetin Mariusz (Epogen) 20,000 unit IV KERWIN PRN PRN Reason: hemodialysis Last Admin: 10/04/16 13:24 Dose: 20,000 unit Heparin Sodium (Porcine) (Heparin) 5,000 unit IV KERWIN PRN PRN Reason: hemodialysis Last Admin: 10/04/16 14:34 Dose: 5,000 unit Hydralazine HCl (Apresoline) 10 mg IV Q6H PRN PRN Reason: SBP > 160 Last Admin: 09/21/16 16:13 Dose: 10 mg Hydrophilic Ointment (Vaseline Lip Therapy) 1 applic TP Q2HR PRN PRN Reason: Dry Lips Last Admin: 09/17/16 22:20 Dose: 1 applic Norepinephrine (Levophed Drip 4 Mg/Ns 250 Ml) 4 mg in 250 mls @ 7.5 mls/hr IV TITR AGUSTIN; 2 MCG/MIN PRN Reason: Protocol Last Titration: 10/03/16 09:00 Dose: 0 mcg/min, 0 mls/hr Metronidazole (Flagyl 500 Mg/100 Ml) 500 mg in 100 mls @ 100 mls/hr IV Q8H AGUSTIN Stop: 10/14/16 07:59 Last Admin: 10/05/16 09:50 Dose: 100 mls/hr Micafungin Sodium 100 mg/ (Sodium Chloride) 100 mls @ 100 mls/hr IV Q24H AGUSTIN PRN Reason: Protocol Stop: 10/14/16 23:59 Last Admin: 10/04/16 20:53 Dose: 100 mls/hr Sodium Chloride (Nacl 0.9%) 100 mls @ 999 mls/hr IV KERWIN PRN PRN Reason: Hypotension Sodium Chloride (Nacl 0.9%) 100 mls @ 999 mls/hr IV KERWIN PRN PRN Reason: Hypotension Amino Acids/Electrolytes/Dextrose (Tpn Adult) 2,016 mls @ 84 mls/hr IV DAILY@ 2000 AGUSTIN PRN Reason: Protocol Stop: 10/05/16 19:59 Last Admin: 10/04/16 20:57 Dose: 84 mls/hr Amiodarone HCl 900 mg/ (Dextrose) 500 mls @ 16.66 mls/hr IV DIRECT AGUSTIN; 0.5 MG/MIN PRN Reason: Protocol Last Admin: 10/04/16 20:56 Dose: 0.5 mg/min, 16.66 mls/hr Insulin Human Regular (Novolin R) 0 units SUB-Q Q6HR AGUSTIN PRN Reason: Protocol Last Admin: 10/05/16 05:57 Dose: 2 units Labetalol HCl (Normodyne) 20 mg IV Q4H PRN PRN Reason: For BP >160/100 Last Admin: 09/21/16 15:26 Dose: 20 mg Metoprolol Tartrate (Lopressor) 2.5 mg IV Q4H PRN PRN Reason: HR >130 Last Admin: 10/01/16 01:50 Dose: 2.5 mg Multi-Ingred Cream/Lotion/Oil/Oint (Artificial Tears Ophth Oint) 1 applic OU Q4HR PRN PRN Reason: Dry Eye(s) Ondansetron HCl (Zofran) 4 mg IV Q8H PRN PRN Reason: N/V unrelieved by Shelly Last Admin: 09/22/16 09:43 Dose: 4 mg Pantoprazole Sodium (Protonix) 40 mg IV BID [facility] Last Admin: 10/04/16 21:45 Dose: 40 mg Simple Syrup (Simple Syrup) 30 ml FEEDTUBE PRN PRN PRN Reason: Hypoglycemia Simple Syrup (Simple Syrup) 15 ml FEEDTUBE PRN PRN PRN Reason: Hypoglycemia Sodium Bicarbonate (Sodium Bicarbonate) 325 mg FEEDTUBE PRN PRN PRN Reason: For Clogged Feeding Tube Sodium Chloride (Nacl 0.9% 500 Ml) 1 ml IV DIRECT AGUSTIN Last Admin: 09/16/16 16:43 Dose: 1 ml Sodium Chloride (Sodium Chloride Flush Syringe 10 Ml) 10 ml IV PRN PRN PRN Reason: LINE FLUSH Vancomycin HCl (Vancomycin Po) 250 mg FEEDTUBE Q6HR AGUSTIN Stop: 10/14/16 18:59 Last Admin: 10/05/16 06:00 Dose: Not Given Exam - Constitutional Vitals: Temp Pulse Resp BP Pulse Ox 98.8 F 87 20 88/44 100 10/05/16 08:00 10/05/16 09:00 10/05/16 09:00 10/05/16 09:00 10/05/16 09:00 Results - Labs CBC & Chem 7: 10/05/16 05:00 10/05/16 05:00 Labs: Abnormal lab results 10/04/16 10/04/16 10/05/16 Range/Units 17:54 23:25 04:30 RBC (3.65-5.03) M/mm3 Hgb (10.1-14.3) gm/dl Hct (30.3-42.9) % RDW (13.2-15.2) % Plt Count (140-440) K/mm3 Lymphocytes % (Manual) (13.4-35.0) % POC ABG pH 7.475 H (7.35-7.45) POC ABG pCO2 33.3 L (35-45) POC ABG pO2 140 H (80-105) Sodium (137-145) mmol/L Chloride (98-107) mmol/L Carbon Dioxide (22-30) mmol/L BUN (7-17) mg/dL Creatinine (0.7-1.2) mg/dL Glucose (65-100) mg/dL POC Glucose 160 H 141 H (70-105) Calcium (8.4-10.2) mg/dL Phosphorus (2.5-4.5) mg/dL 10/05/16 10/05/16 10/05/16 Range/Units 05:00 05:00 05:09 RBC 2.64 L (3.65-5.03) M/mm3 Hgb 7.5 L (10.1-14.3) gm/dl Hct 22.6 L (30.3-42.9) % RDW 19.3 H (13.2-15.2) % Plt Count 80 L (140-440) K/mm3 Lymphocytes % (Manual) 12.0 L (13.4-35.0) % POC ABG pH (7.35-7.45) POC ABG pCO2 (35-45) POC ABG pO2 (80-105) Sodium 131 L (137-145) mmol/L Chloride 94.0 L (98-107) mmol/L Carbon Dioxide 20 L (22-30) mmol/L BUN 22 H (7-17) mg/dL Creatinine 2.0 H (0.7-1.2) mg/dL Glucose 123 H (65-100) mg/dL POC Glucose 166 H (70-105) Calcium 7.7 L (8.4-10.2) mg/dL Phosphorus 2.20 L D (2.5-4.5) mg/dL
[2016-10-05] MEDS: PROTONIX IV SCH (13:09)
[2016-10-05] MEDS: ASPIRIN PO SCH (13:11)
--- NOTE | 2016-10-05 13:59 | Operative Report ---
Operative Report Operative Report: Procedure: Attempted replacement of an indwelling percutaneous endoscopically placed gastrostomy tube Date of Procedure: 10/04/2016 History/Indication: 46-year-old female who had a PEG tube placed 2 weeks ago. It had bilious, copious output. A CT was performed, and the bumper was found to be outside of the gastric wall. Physician: Anisha Sy MD Technique/Procedural Details: The patient was placed in the supine position on the procedure table. A timeout was performed. Through the existing PEG tube, a 4 Romansh vertebral catheter and glide advantage wire were used in an attempt to access the gastric lumen. A RIM catheter was also used. Contrast was injected through both catheters in order to evaluate placement. Ultimately, the procedure was not successful, and and catheters and wires were removed. The patient was transported back to the unit in unchanged condition. Discussion: Despite copious bilious output, the gastric lumen could not be reentered via the existing PEG tube. The wire/catheter kept deflecting off of the anterior gastric wall and traversing to other regions of the intra-abdominal space. After prolonged effort, it was determined that the gastric lumen could not be reentered via the existing tube. This case was discussed with Dr. Oliveira of the surgical service. The surgical service will be evaluating the patient today for alternate means of replacement. Specimen: None EBL: <5 cc
--- NOTE | 2016-10-05 14:52 | Progress Note ---
Assessment and Plan - Patient Problems (1) Acute respiratory failure with hypoxia Current Visit: Yes Status: Acute (2) Dislodged gastrostomy tube Current Visit: Yes Status: Acute Plan to address problem: Patient is likely leaking gastric contents into abdominal cavity as evidenced by dislodged tube and copious drainage. I recommend diagnostic laparoscopy with possible repair of gastric perforation and possible replacement of feeding tube. Risks and benefits including infection, bleeding,, additional strokes, etc discussed with patient's brother ,Jam, who understands and consents to surgery. Subjective Date of service: 10/05/16 Patient Reports: Positive: other Narrative: Asked to evaluate for dislodged PEG tube. Patient had PEG placed on 09-20-16 and evidently has not been functioning for several days and has been placed on LIWS with copious drainage. She had a CT scan abdomen on 10-03-16 which showed large amount of ascites and free air and G tube not in lumen of stomach. She had an attempted replacement of G tube by IR today but was unsuccessful. Objective Vital Signs - 12hr 10/05/16 10/05/16 10/05/16 03:00 03:30 04:00 Temperature 99.4 F Pulse Rate 105 H 115 H 113 H Respiratory 21 24 22 Rate Blood Pressure 115/70 166/99 166/99 O2 Sat by Pulse 100 100 Oximetry 10/05/16 10/05/16 10/05/16 04:30 05:00 05:05 Temperature Pulse Rate 104 H 110 H Respiratory 24 24 37 H Rate Blood Pressure 144/76 125/73 O2 Sat by Pulse 100 100 Oximetry 10/05/16 10/05/16 10/05/16 05:30 06:00 06:30 Temperature Pulse Rate 109 H 103 H 104 H Respiratory 24 25 H 24 Rate Blood Pressure 136/78 131/70 112/60 O2 Sat by Pulse 100 100 Oximetry 10/05/16 10/05/16 10/05/16 07:00 07:30 08:00 Temperature 98.8 F Pulse Rate 97 H 96 H 99 H Respiratory 20 22 18 Rate Blood Pressure 110/58 93/48 90/49 O2 Sat by Pulse 99 100 100 Oximetry 10/05/16 10/05/16 10/05/16 08:30 09:00 09:30 Temperature Pulse Rate 83 87 92 H Respiratory 20 20 21 Rate Blood Pressure 91/43 88/44 89/49 O2 Sat by Pulse 100 100 100 Oximetry 10/05/16 10/05/16 10/05/16 09:45 10:00 10:30 Temperature Pulse Rate 103 H 89 101 H Respiratory 31 H 34 H Rate Blood Pressure 125/38 125/58 140/67 O2 Sat by Pulse 99 93 100 Oximetry 10/05/16 10/05/16 10/05/16 11:00 11:30 12:00 Temperature 99 F Pulse Rate 104 H 102 H 119 H Respiratory 37 H 38 H 40 H Rate Blood Pressure 135/68 128/63 138/78 O2 Sat by Pulse 100 100 100 Oximetry 10/05/16 10/05/16 12:30 13:00 Temperature Pulse Rate 109 H 102 H Respiratory 43 H 41 H Rate Blood Pressure 139/79 144/74 O2 Sat by Pulse 99 99 Oximetry - General physical appearance no distress, other (on vent via trach) - Neck other (trach site clean and dry) - Abdomen soft, not tender, other (G tube site and G tube aspirate with bilious drainage) - Labs 10/05/16 05:00 10/05/16 05:00 Diabetes panel 10/05/16 Range/Units 05:00 Sodium 131 L (137-145) mmol/L Potassium 3.6 (3.6-5.0) mmol/L Chloride 94.0 L (98-107) mmol/L Carbon Dioxide 20 L (22-30) mmol/L BUN 22 H (7-17) mg/dL Creatinine 2.0 H (0.7-1.2) mg/dL Glucose 123 H (65-100) mg/dL Calcium 7.7 L (8.4-10.2) mg/dL Calcium panel 10/05/16 Range/Units 05:00 Calcium 7.7 L (8.4-10.2) mg/dL Phosphorus 2.20 L D (2.5-4.5) mg/dL Pituitary panel 10/05/16 Range/Units 05:00 Sodium 131 L (137-145) mmol/L Potassium 3.6 (3.6-5.0) mmol/L Chloride 94.0 L (98-107) mmol/L Carbon Dioxide 20 L (22-30) mmol/L BUN 22 H (7-17) mg/dL Creatinine 2.0 H (0.7-1.2) mg/dL Glucose 123 H (65-100) mg/dL Calcium 7.7 L (8.4-10.2) mg/dL Adrenal panel 10/05/16 Range/Units 05:00 Sodium 131 L (137-145) mmol/L Potassium 3.6 (3.6-5.0) mmol/L Chloride 94.0 L (98-107) mmol/L Carbon Dioxide 20 L (22-30) mmol/L BUN 22 H (7-17) mg/dL Creatinine 2.0 H (0.7-1.2) mg/dL Glucose 123 H (65-100) mg/dL Calcium 7.7 L (8.4-10.2) mg/dL
--- NOTE | 2016-10-05 15:13 | Anesthesia Consultation ---
Anesthesia Consult and Med Hx Date of service: 10/05/16 - Pre-Operative Health Status ASA Pre-Surgery Classification: ASA4 Proposed Anesthetic Plan: General - Pre-Anesthesia Comment Pre-Anesthesia Comments: Patient on Ventilator via Trach. CPAP 28% O2. Unable to assess Airway. TPN and Amiodarone Infusing. EF 50-55%. Mod to severe LVH. Peg 09/20. Consent received from brother Bebeto - Pulmonary Hx Asthma: Yes - Cardiovascular System Hx Hypertension: Yes (Uncontrolled ) Hx Cardia Arrhythmia: Yes (Paroxsymal Afib, cardioversion 09/25) - Central Nervous System CVA: Yes (Acute ) - Endocrine Hx Renal Disease: Yes (K 3.6, Cr 2.0) Hx Insulin Dependent Diabetes: Yes - Hematic Hx Anemia: Yes (PRBC transfused, 7.5/22.6 Plt 80) - Additional Comments Anesthesia Medical History Comments: .
--- NOTE | 2016-10-05 15:18 | Anesthesia Day of Surgery ---
Anesthesia Day of Surgery - Day of Surgery Patient Examined: Yes Patient H&P Reviewed: Yes Patient is NPO: Yes
[2016-10-05] MEDS ORDERED: MARCAINE 0.25% INFILTRATI ONE ×3 (15:35→16:59)
[2016-10-05] MEDS ORDERED: NACL 0.9% 500 ML 500 ML IV SCH (15:36)
[2016-10-05] MEDS: ZOSYN/NS 4.5GM/100ML 4.5 GM/100 ML VIAL IV SCH ×2 (16:20→22:30)
[2016-10-05] MEDS ORDERED: SUBLIMAZE ONE (16:46)
[2016-10-05] MEDS ORDERED: NACL 0.9% IR ONE ×2 (16:59)
[2016-10-05] MEDS ORDERED: ANCEF ONE ×2 (17:14)
[2016-10-05] MEDS ORDERED: NEO SYNEPHRINE ONE (17:42)
[2016-10-05] MEDS ORDERED: ZEMURON IV ONE (17:42)
[2016-10-05] MEDS ORDERED: NACL 0.9% 100 ML ONE (17:42)
--- NOTE | 2016-10-05 18:11 | Post Operative Note ---
Pre-op diagnosis: perforated viscus Post-op diagnosis: other (gastric perforation) Findings: Gastric perforation from dislodged PEG with significant ascites Procedure: Diagnostic laparoscopy, repair of gastric perforation with wedge gastrectomy, abdominal washout, drain placement Anesthesia: GUANACO Surgeon: KHADAR KRAMER Estimated blood loss: minimal Pathology: list (resected stomach containing gastric perforation) Specimen disposition: to lab Condition: stable Disposition: PACU
[2016-10-05] MEDS: DILAUDID IV PRN ×2 (18:57→19:10)
--- NOTE | 2016-10-05 18:58 | Progress Note ---
Assessment and Plan Assessment and plan: --Malfunctioning PEG tube; GI and interventional radiologists evaluating the patient Follow the recommendations --Acute hypoxic respiratory failure vent dependent/unable to wean s/p trach and PEG, continue PEG feeds --Acute large left MCA CVA status post TPA/encephalopathy, Aspirin/statin/ supportive care --Hyponatremia; mild improvement, closely monitor Dialysis is scheduled for today, nephrology following --Hypokalemia; replace per protocol and monitor levels --Paroxysmal A. fib, persistent RVR ,on amiodarone drip, Cardiology following --Chronic anticoagulation need to be started per cardiology, will consult neurology for recommendations --Anemia, status post multiple units of PRBC transfusion, closely monitor H&H and transfuse as needed --Hypotension/ septic shock on pressors, titrate systolic blood pressures to more than 100 --Acute on chronic kidney disease stage III , worsening renal function , nephrology following Hemodialysis as needed --Aspiration pneumonia, Continue vancomycin and Flagyl, ID following --Acute exacerbation of COPD;, Nebulizers tapering dose of steroids antibiotics and ventilatory support, pulmonary following --Anemia requiring blood transfusion; closely monitor H&H and transfuse as needed --2 diabetes mellitus; Accu-Chek sliding scale coverage and ADA diet and insulin as needed --Moderate to severe protein calorie malnutrition with albumin of 2.2, Nutritional supplements, tube feeding, supportive care --DVT prophylaxis with heparin --Full CODE STATUS I talked to son and the brother periodically and updated patient's condition and treatment plan They are aware of patient's poor prognosis Malfunctioning G-tube, going for exchange Disposition: Continue ICU care, [facility] has accepted once off drips d/w Dr. Nazario, he will discuss with family History Interval history: Patient seen and examined. Follow up on current diagnosis/respiratory failure. Still intubated, sedated. Imaging, old records, testing, labs, nursing notes reviewed. Hospitalist Physical - Physical exam Narrative exam: GEN: Ill appearing, trach, vegetative state HEENT: Occasional facial movement NECK: SUPPLE, trach in place CVS: Tachycardic irregular irregular NORMAL S1S2 LUNGS/CHEST: NORMAL CHEST EXPANSION B, GOOD AIR ENTRY B ABD: SOFT, NTND, PEG in Place malfunctioning GBS, NO REBOUND OR GUARDING EXT/SKIN: NO SIGNIFICANT EDEMA OR RASH MSK: FROM X 4 EXTREMITIES NEURO: CN 2-12 GROSSLY INTACT, on a ventilator PSY: Comatose, - Constitutional Vitals: Temp Pulse Resp BP Pulse Ox 99.8 F H 90 28 H 125/61 97 10/05/16 16:00 10/05/16 16:13 10/05/16 16:00 10/05/16 16:13 10/05/16 16:13 General appearance: Present: no acute distress, obese, other (on vent, non- responsive) Results - Labs CBC & Chem 7: 10/05/16 05:00 10/05/16 05:00 Labs: Laboratory Last Values WBC 10.1 K/mm3 (4.5-11.0) 10/05/16 05:00 RBC 2.64 M/mm3 (3.65-5.03) L 10/05/16 05:00 Hgb 7.5 gm/dl (10.1-14.3) L 10/05/16 05:00 Hct 22.6 % (30.3-42.9) L 10/05/16 05:00 MCV 85 fl (79-97) 10/05/16 05:00 MCH 28 pg (28-32) 10/05/16 05:00 MCHC 33 % (30-34) 10/05/16 05:00 RDW 19.3 % (13.2-15.2) H 10/05/16 05:00 Plt Count 80 K/mm3 (140-440) L 10/05/16 05:00 Lymph % (Auto) 6.9 % (13.4-35.0) L 09/21/16 07:45 [place] % (Auto) 0.5 % (0.0-7.3) 10/03/16 05:10 Eos % (Auto) 1.3 % (0.0-4.3) 10/03/16 05:10 Baso % (Auto) 0.2 % (0.0-1.8) 09/21/16 07:45 Lymph # 0.9 K/mm3 (1.2-5.4) L 09/21/16 07:45 [place] # 0.1 K/mm3 (0.0-0.8) 10/03/16 05:10 Eos # 0.2 K/mm3 (0.0-0.4) 10/03/16 05:10 Baso # 0.0 K/mm3 (0.0-0.1) 10/03/16 05:10 Add Manual Diff Complete 10/05/16 05:00 Total Counted 100 10/05/16 05:00 Seg Neutrophils % Email Marketing Manager 10/03/16 05:10 Seg Neuts % (Manual) 60.0 % (40.0-70.0) 10/05/16 05:00 Band Neutrophils % 22.0 % 10/05/16 05:00 Lymphocytes % (Manual) 12.0 % (13.4-35.0) L 10/05/16 05:00 Reactive Lymphs % (Man) 0 % 10/05/16 05:00 Monocytes % (Manual) 3.0 % (0.0-7.3) 10/05/16 05:00 Eosinophils % (Manual) 1.0 % (0.0-4.3) 10/05/16 05:00 Basophils % (Manual) 0 % (0.0-1.8) 10/05/16 05:00 Metamyelocytes % 1.0 % 10/05/16 05:00 Myelocytes % 1.0 % 10/05/16 05:00 Promyelocytes % 0 % 10/05/16 05:00 Blast Cells % 0 % 10/05/16 05:00 Nucleated RBC % Not Reportable 10/05/16 05:00 Seg Neutrophils # 11.9 K/mm3 (1.8-7.7) H 10/03/16 05:10 Seg Neutrophils # Man 6.1 K/mm3 (1.8-7.7) 10/05/16 05:00 Band Neutrophils # 2.2 K/mm3 10/05/16 05:00 Lymphocytes # (Manual) 1.2 K/mm3 (1.2-5.4) 10/05/16 05:00 Abs React Lymphs (Man) 0.0 K/mm3 10/05/16 05:00 Monocytes # (Manual) 0.3 K/mm3 (0.0-0.8) 10/05/16 05:00 Eosinophils # (Manual) 0.1 K/mm3 (0.0-0.4) 10/05/16 05:00 Basophils # (Manual) 0.0 K/mm3 (0.0-0.1) 10/05/16 05:00 Metamyelocytes # 0.1 K/mm3 10/05/16 05:00 Myelocytes # 0.1 K/mm3 10/05/16 05:00 Promyelocytes # 0.0 K/mm3 10/05/16 05:00 Blast Cells # 0.0 K/mm3 10/05/16 05:00 Pathologist Review 09/13/16 04:00 WBC Morphology Not Reportable 10/05/16 05:00 Hypersegmented Neuts Not Reportable 10/05/16 05:00 Hyposegmented Neuts Not Reportable 10/05/16 05:00 Hypogranular Neuts Not Reportable 10/05/16 05:00 Smudge Cells Not Reportable 10/05/16 05:00 Toxic Granulation Not Reportable 10/05/16 05:00 Toxic Vacuolation Not Reportable 10/05/16 05:00 Dohle Bodies Not Reportable 10/05/16 05:00 Pelger-Huet Anomaly Not Reportable 10/05/16 05:00 Jasmina Rods Not Reportable 10/05/16 05:00 Platelet Estimate Consistent w auto 10/05/16 05:00 Clumped Platelets Not Reportable 10/05/16 05:00 Plt Clumps, EDTA Not Reportable 10/05/16 05:00 Large Platelets Not Reportable 10/05/16 05:00 Giant Platelets Not Reportable 10/05/16 05:00 Platelet Satelliting Not Reportable 10/05/16 05:00 Plt Morphology Comment Not Reportable 10/05/16 05:00 RBC Morphology Not Reportable 10/05/16 05:00 Dimorphic RBCs Not Reportable 10/05/16 05:00 Polychromasia Not Reportable 10/05/16 05:00 Hypochromasia Not Reportable 10/05/16 05:00 Poikilocytosis Not Reportable 10/05/16 05:00 Anisocytosis 1+ 10/05/16 05:00 Microcytosis Not Reportable 10/05/16 05:00 Macrocytosis Not Reportable 10/05/16 05:00 Spherocytes Not Reportable 10/05/16 05:00 Pappenheimer Bodies Not Reportable 10/05/16 05:00 Sickle Cells Not Reportable 10/05/16 05:00 Target Cells 1+ 10/05/16 05:00 Tear Drop Cells Not Reportable 10/05/16 05:00 Ovalocytes Not Reportable 10/05/16 05:00 Stomatocytes 1+ 10/04/16 06:30 Helmet Cells Not Reportable 10/05/16 05:00 Monet-Hoskins Bodies Not Reportable 10/05/16 05:00 Wood Rings Not Reportable 10/05/16 05:00 [place] Cells Not Reportable 10/05/16 05:00 Bite Cells Not Reportable 10/05/16 05:00 Crenated Cell Not Reportable 10/05/16 05:00 Elliptocytes Not Reportable 10/05/16 05:00 Acanthocytes (Spur) Not Reportable 10/05/16 05:00 Rouleaux Not Reportable 10/05/16 05:00 Hemoglobin C Crystals Not Reportable 10/05/16 05:00 Schistocytes Not Reportable 10/05/16 05:00 Malaria parasites Not Reportable 10/05/16 05:00 ESR > 140.0 mm/Hr (0-20) 09/08/16 11:48 Jun Bodies Not Reportable 10/05/16 05:00 Hem Pathologist Commnt No 10/05/16 05:00 PT 13.8 Sec. (12.2-14.9) 09/15/16 05:00 INR 1.01 (0.87-1.13) 09/15/16 05:00 APTT 24.4 Sec. (24.2-36.6) 09/15/16 05:00 Thrombin Time 16.8 Sec. (15.1-19.6) 09/03/16 00:10 Fibrinogen 750 mg/dl (211-480) H 09/08/16 11:48 Lupus Anticoagulant see below 09/12/16 09:59 LA PTT Baseline See scanned report 09/12/16 09:59 dRVVT Confirm Interp Positive (Negative) H 09/12/16 09:59 dRVVT Screen 50:50 See scanned report 09/12/16 09:59 dRVVT Mix Interpret See scanned report 09/12/16 09:59 Protein C Antigen 122 % (70-140) 09/08/16 15:35 Free Protein S 97 % normal (50-147) 09/08/16 15:35 Total Protein S 109 % (70-140) 09/08/16 15:35 Antithrombin III Ag 100 % (80-120) 09/08/16 15:35 Heparin Anti-Xa, Unfract Negative (Negative) 09/29/16 13:35 Factor V Activity 182 % (65-150) H 09/08/16 15:35 POC ABG pH 7.475 (7.35-7.45) H 10/05/16 04:30 POC ABG pCO2 33.3 (35-45) L 10/05/16 04:30 POC ABG pO2 140 (80-105) H 10/05/16 04:30 POC ABG HCO3 24.5 10/05/16 04:30 POC ABG Total CO2 26 10/05/16 04:30 POC ABG O2 Sat 99 10/05/16 04:30 POC ABG Base Excess 1 10/05/16 04:30 FiO2 30 % 10/05/16 04:30 Sodium 131 mmol/L (137-145) L 10/05/16 05:00 Potassium 3.6 mmol/L (3.6-5.0) 10/05/16 05:00 Chloride 94.0 mmol/L (98-107) L 10/05/16 05:00 Carbon Dioxide 20 mmol/L (22-30) L 10/05/16 05:00 Anion Gap 21 mmol/L 10/05/16 05:00 BUN 22 mg/dL (7-17) H 10/05/16 05:00 Creatinine 2.0 mg/dL (0.7-1.2) H 10/05/16 05:00 Estimated GFR 33 ml/min 10/05/16 05:00 BUN/Creatinine Ratio 11.00 % 10/05/16 05:00 Glucose 123 mg/dL (65-100) H 10/05/16 05:00 POC Glucose 179 (70-105) H 10/05/16 12:58 Osmolality 351 Mosm/kg 09/16/16 11:47 Lactic Acid 4.50 mmol/L (0.7-2.0) H* 09/28/16 07:25 Calcium 7.7 mg/dL (8.4-10.2) L 10/05/16 05:00 Phosphorus 2.20 mg/dL (2.5-4.5) L D 10/05/16 05:00 Magnesium 1.80 mg/dL (1.7-2.3) 10/05/16 05:00 Total Bilirubin 1.20 mg/dL (0.1-1.2) 09/29/16 06:45 Direct Bilirubin 0.9 mg/dL (0-0.2) H 09/29/16 06:45 Indirect Bilirubin 0.3 mg/dL 09/29/16 06:45 AST 24 units/L (5-40) 09/29/16 06:45 ALT 16 units/L (7-56) 09/29/16 06:45 Alkaline Phosphatase 72 units/L (35-129) 09/29/16 06:45 Ammonia 27.0 umol/L (25-60) 09/07/16 08:37 Total Creatine Kinase 121 units/L (30-135) 09/29/16 20:12 CK-MB (CK-2) < 1.0 ng/mL (0.0-4.0) 09/29/16 20:12 CK-MB (CK-2) Rel Index 0.8 (0-4) 09/29/16 20:12 Troponin T 0.204 ng/mL (0.00-0.029) H* 09/29/16 20:12 C-Reactive Protein 3.20 mg/dL (0.00-1.30) H 09/23/16 05:00 Total Protein 4.3 g/dL (6.3-8.2) L 09/29/16 06:45 Albumin 1.3 g/dL (3.9-5) L 09/29/16 06:45 Albumin/Globulin Ratio 0.4 % 09/29/16 06:45 Triglycerides 137 mg/dL (2-149) 09/29/16 20:12 Cholesterol 31 mg/dL (50-199) L 09/29/16 20:12 LDL Cholesterol Direct 4 mg/dL (50-130) L 09/29/16 20:12 HDL Cholesterol 3 mg/dL (40-59) L 09/29/16 20:12 Cholesterol/HDL Ratio 10.33 % 09/29/16 20:12 Angiotensin Convert Enz See scanned report 09/08/16 11:48 TSH 1.010 mlU/mL (0.270-4.200) 09/07/16 08:37 HCG, Qual Negative (Negative) 09/03/16 00:10 Urine Color Yellow (Yellow) 09/09/16 14:13 Urine Turbidity Slightly-cloudy (Clear) 09/09/16 14:13 Urine pH 5.0 (5.0-7.0) 09/09/16 14:13 Ur Specific [place] 1.012 (1.003-1.030) 09/09/16 14:13 Urine Protein 30 mg/dl mg/dL (Negative) 09/09/16 14:13 Urine Glucose (UA) Neg mg/dL (Negative) 09/09/16 14:13 Urine Ketones Neg mg/dL (Negative) 09/09/16 14:13 Urine Blood Lg (Negative) 09/09/16 14:13 Urine Nitrite Neg (Negative) 09/09/16 14:13 Urine Bilirubin Neg (Negative) 09/09/16 14:13 Urine Urobilinogen < 2.0 mg/dL (<2.0) 09/09/16 14:13 Ur Leukocyte Esterase Sm (Negative) 09/09/16 14:13 Urine WBC (Auto) 25.0 /HPF (0.0-6.0) H 09/09/16 14:13 Urine RBC (Auto) > 182.0 /HPF (0.0-6.0) 09/09/16 14:13 Urine Bacteria (Auto) 1+ /HPF (Negative) 09/09/16 14:13 Urine WBC Clumps 2+ /HPF 09/07/16 02:47 Hyaline Casts 4 /LPF 09/07/16 02:47 Urine Mucus Few /HPF 09/09/16 14:13 Urine Eosinophils None seen (None Seen) 09/07/16 16:00 Urine Total Volume 1350 09/21/16 12:00 Urine Creatinine 54.8 mg/dL (0.1-20.0) H 09/21/16 12:00 Height (in) 67.0 inches 09/21/16 12:00 Weight (lb) 92.0 lbs 09/21/16 12:00 Creatinine Clearance 15 09/21/16 12:00 Urine Sodium 36 mEq/L 09/16/16 19:19 Urine Total Protein 16 mg/dL (5-11.8) H 09/16/16 19:19 Vancomycin Trough 2.3 ug/mL (5.0-20.0) L 09/21/16 13:00 Random Vancomycin 2.3 ug/mL (0-40.0) 09/09/16 03:00 Urine Opiates Screen Presumptive negative 09/03/16 15:11 Urine Methadone Screen Presumptive positive 09/03/16 15:11 Ur Barbiturates Screen Presumptive positive 09/03/16 15:11 Ur Phencyclidine Scrn Presumptive negative 09/03/16 15:11 Ur Amphetamines Screen Presumptive negative 09/03/16 15:11 U Benzodiazepines Scrn Presumptive negative 09/03/16 15:11 Urine Cocaine Screen Presumptive negative 09/03/16 15:11 U Marijuana (THC) Screen Presumptive positive 09/03/16 15:11 Drugs of Abuse Note Disclamer 09/03/16 15:11 Rheumatoid Factor 24 IU/ml (0-13) H 09/08/16 11:48 SAHIL Screen Negative (Negative) 09/07/16 09:20 Proteinase 3 (PR3) Ab <1.0 AI (<1.0) 09/07/16 09:20 Myeloperoxidase Ab <1.0 AI (<1.0) 09/07/16 09:20 Sjogren's Antibody <1.0 AI (<1.0) 09/08/16 15:35 Scl-70 Scleroderma Ab <1.0 AI (<1.0) 09/08/16 15:35 Centromere B Antibody <1.0 AI (<1.0) 09/08/16 12:02 Heparin-induced Plt Ab Negative (Negative) 09/29/16 13:35 UF Heparin High Dose 11 % Release 09/29/16 13:35 SUDHIR UFH Low Dose 0.1 6 % Release 09/29/16 13:35 SUDHIR UFH Low Dose 0.5 8 % Release 09/29/16 13:35 Cardiolipid IgG Ab <14 GPL (<=14) 09/12/16 09:59 Cardiolipid IgA Ab <11 APL (<=11) 09/12/16 09:59 Cardiolipid IgM Ab <12 MPL (<=12) 09/12/16 09:59 Complement C3 148 mg/dL (90-180) 09/07/16 09:20 Complement C4 58 mg/dL (16-47) H 09/07/16 09:20 RPR Nonreactive (Nonreactive) 09/08/16 11:48 Hepatitis A IgM Ab Non-reactive (NonReactive) 09/24/16 14:40 Hep Bs Antigen Non-reactive (Negative) 09/24/16 14:40 Hep B Core IgM Ab Non-reactive (NonReactive) 09/24/16 14:40 Hepatitis C Antibody Non-reactive (NonReactive) 09/24/16 14:40 HIV 1&2 Antibody Rapid Non react (Non React) 09/08/16 11:48 HIV P24 Antigen Non react (Non React) 09/08/16 11:48 Blood Type A POSITIVE 10/05/16 15:50 Antibody Screen Negative 10/05/16 15:50 DELORIS Antibody Screen Negative 09/25/16 10:30 Crossmatch See Detail 10/05/16 15:50
[2016-10-05] MEDS ORDERED: NACL 0.9% 1000 ML 1,000 ML ONE (19:17)
[2016-10-05] MEDS ORDERED: TPN ADULT 2,016 ML IV SCH (20:00)
--- NOTE | 2016-10-05 20:23 | Post Anesthesia Evaluation ---
- Post Anesthesia Evaluation Patient Participated: No Airway Patent: Yes Stable Respiratory Function: Yes Nausea/Vomiting: No Temp > 96.8F: Yes Pain Manageable: Yes Adequeate Hydration: Yes Anesthesia Complications: No Block Receding Appropriately: Not Applicable Patient on Ventilator: Yes
[2016-10-05] MEDS: MYCAMINE 100 MG in NACL 0.9% 100 ML IV SCH (23:15)
[2016-10-06] MEDS: FLAGYL 500 MG/100 ML 500 MG/100 ML BAG IV SCH ×3 (00:29→15:45)
[2016-10-06] MEDS: VANCOMYCIN PO FEEDTUBE SCH ×3 (00:47→18:38)
[2016-10-06] MEDS: PROTONIX IV SCH ×3 (01:59→22:41)
[2016-10-06 05:36] LABS: Hematocrit 25.8 % (30.3-42.9); Hemoglobin 8.6 gm/dl (10.1-14.3); Mean Corpuscular HGB Conc 33 % (30-34); Mean Corpuscular Hemoglobin 29 pg (28-32); Mean Corpuscular Volume 86 fl (79-97); Red Cell Distribution Width 17.9 % (13.2-15.2)
[2016-10-06 05:52] LABS: Platelet Count 65 K/mm3 (140-440)
[2016-10-06 06:00] LABS: Calcium 7.8 mg/dL (8.4-10.2)
[2016-10-06] MEDS: ZOSYN/NS 4.5GM/100ML 4.5 GM/100 ML VIAL IV SCH (06:00)
[2016-10-06 07:15] LABS: Band Neutrophils # (Manual) 3.8 K/mm3; Basophils % (Manual) 0 % (0.0-1.8); Promyelocytes # (Manual) 0.3 K/mm3; Total Cells Counted 100
[2016-10-06 07:16] LABS: Anisocytosis 1+; Dohle Bodies 1+; Giant Platelets Few; Hypochromasia Few; Platelet Estimate Consistent w Auto; Stomatocytes Few
--- NOTE | 2016-10-06 09:03 | Progress Note ---
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 * Acute hypoxic respiratory failure * Accelerated hypertension * Left renal artery stenosis * Metabolic acidosis w/ respiratory compensation * Hyponatremia - resolved * pAfib Plan: * Na noted, mix amiodarone on ns * Pressors prn MAP>65 * dialysis prn, no plans for hd today, follow up crcl * Rate control per cardiology * Transfusion of pRBC per primary team * Abx/antifungal per ID * Vent management per critical care * Dose medications for renal function * Avoid potential nephrotoxins Subjective Principal diagnosis: Acute resp failure on MVS; S/P Acute CVA; Acute Encephalopathy; JUANITA Interval history: no new event Objective - Exam Narrative Exam: Gen. appearance: Patient lying in bed, no apparent distress, 4. restraints HEENT: Normocephalic, atraumatic, pupils equally round and reactive to light, extraocular movement intact, and no sclericterus,. No JVD or thyromegaly or nodule,neck supple, no carotid bruit ,mucous membranes moist, unable to examine oral cavity Heart: S1, S2, regular rate and rhythm Lungs: Clear to auscultation bilaterally, breathing comfortable Abdomen: Positive bowel sounds, nontender, nondistended, no organomegaly Extremity: No edema, cyanosis, clubbing Skin: No rash, nodules, warm, dry Neuro: Difficult to assess, facial droop, moves all 4 extremities - Vital Signs Vital signs: Vital Signs - 12hr 10/05/16 10/05/16 10/05/16 21:25 21:57 22:00 Temperature 97.4 F L Pulse Rate 77 Respiratory 12 Rate Blood Pressure 126/58 150/80 156/81 O2 Sat by Pulse 98 99 Oximetry O2 Sat by Pulse Oximetry [ Assessment] 10/05/16 10/05/16 10/05/16 22:30 23:00 23:30 Temperature Pulse Rate 101 H 82 85 Respiratory 15 12 18 Rate Blood Pressure 156/81 109/54 109/54 O2 Sat by Pulse 99 98 98 Oximetry O2 Sat by Pulse Oximetry [ Assessment] 10/06/16 10/06/16 10/06/16 00:00 00:05 00:30 Temperature 98.0 F 98 F Pulse Rate 86 86 88 Respiratory 15 15 21 Rate Blood Pressure 105/39 105/39 105/39 O2 Sat by Pulse 98 98 99 Oximetry O2 Sat by Pulse Oximetry [ Assessment] 10/06/16 10/06/16 10/06/16 00:36 01:00 01:08 Temperature Pulse Rate 87 85 85 Respiratory 15 14 Rate Blood Pressure 105/39 108/48 108/48 O2 Sat by Pulse 100 98 98 Oximetry O2 Sat by Pulse 100 Oximetry [ Assessment] 10/06/16 10/06/16 10/06/16 01:30 02:00 02:07 Temperature Pulse Rate 85 86 87 Respiratory 15 17 14 Rate Blood Pressure 108/48 106/41 106/41 O2 Sat by Pulse 98 98 98 Oximetry O2 Sat by Pulse Oximetry [ Assessment] 10/06/16 10/06/16 10/06/16 02:30 03:00 03:05 Temperature Pulse Rate 89 84 84 Respiratory 15 17 15 Rate Blood Pressure 106/41 109/54 109/54 O2 Sat by Pulse 99 100 99 Oximetry O2 Sat by Pulse Oximetry [ Assessment] 10/06/16 10/06/16 10/06/16 03:30 03:51 04:00 Temperature 98.9 F Pulse Rate 84 89 88 Respiratory 14 17 21 Rate Blood Pressure 109/54 106/56 120/65 O2 Sat by Pulse 99 99 98 Oximetry O2 Sat by Pulse Oximetry [ Assessment] 10/06/16 10/06/16 10/06/16 04:30 04:52 05:00 Temperature Pulse Rate 84 90 95 H Respiratory 16 27 H Rate Blood Pressure 119/53 119/53 120/65 O2 Sat by Pulse 100 95 99 Oximetry O2 Sat by Pulse Oximetry [ Assessment] 10/06/16 10/06/16 10/06/16 05:30 06:00 06:30 Temperature Pulse Rate 97 H 86 91 H Respiratory 25 H 21 15 Rate Blood Pressure 120/65 119/57 119/57 O2 Sat by Pulse 97 98 98 Oximetry O2 Sat by Pulse Oximetry [ Assessment] 10/06/16 07:00 Temperature Pulse Rate 94 H Respiratory 24 Rate Blood Pressure 122/62 O2 Sat by Pulse 91 Oximetry O2 Sat by Pulse Oximetry [ Assessment] - Lab 10/06/16 03:50 10/06/16 03:50 Most recent lab results Calcium 7.8 mg/dL (8.4-10.2) L 10/06/16 03:50 Phosphorus 2.90 mg/dL (2.5-4.5) D 10/06/16 03:50 Magnesium 1.90 mg/dL (1.7-2.3) 10/06/16 03:50 Urine Creatinine 54.8 mg/dL (0.1-20.0) H 09/21/16 12:00 Urine Sodium 36 mEq/L 09/16/16 19:19 Urine Total Protein 16 mg/dL (5-11.8) H 09/16/16 19:19
[2016-10-06] MEDS: APRESOLINE IV PRN (10:40)
[2016-10-06] MEDS: HumuLIN R SUB-Q SCH ×2 (12:00→18:38)
--- NOTE | 2016-10-06 12:12 | Progress Note ---
Assessment and Plan (1) Acute respiratory failure with hypoxia Current Visit: Yes Status: Acute Plan to address problem: - continue aspiration precautions / address VAP bundles - continue to wean oxygen for MAP > 94% - continue bronchodilators and pulmonary toilet - tapered off systemic steroids (no active needs pulmonary-[place]) - s/p tracheostomy - resume daily PSV trials as tolerated (2) Acute CVA (cerebrovascular accident) Current Visit: Yes Status: Acute Plan to address problem: - out of tpA window (initially stopped due to uncontrolled HTN) - Left MCA teritory stroke with some midline shift on last CT - seen by neurology and prognosis for recovery of mental status guarded to poor - optimizing secondary prevention modalities now (BP, lipid anti-platelet therapy) - off systemic steroids now (started earlier for edema) (3) Hypertensive emergency Current Visit: Yes Status: Acute Plan to address problem: - stopped all antihypertensives while septic - following cllinically (4) Obesity (BMI 35.0-39.9 without comorbidity) Current Visit: Yes Status: Chronic Plan to address problem: - nutrition consult placed for enteral formulation - follow clinically (5) Type 2 diabetes mellitus Current Visit: Yes Status: Chronic Qualifiers: Diabetes mellitus complication status: D Diabetes mellitus complication detail: D Diabetic retinopathy severity: D Proliferative retinopathy type: P Diabetes mellitus macular edema: D Diabetes mellitus fdc insulin use : D Laterality: L Chronic kidney disease stage: C Plan to address problem: - continue SSI - discontinued lantus re: hypoglycemia (6) Leukocytosis (leucocytosis) Current Visit: Yes Status: Acute Qualifiers: Leukocytosis type: leukemoid reaction Qualified Code(s): D72.823 - Leukemoid reaction Plan to address problem: - continue cancidas and de-escalate per ID recs - clinically improved (7) Agitation Current Visit: Yes Status: Acute Plan to address problem: - prn sedation / analgesia - tapered off seroquel for now (8) Atrial fibrillation Current Visit: Yes Status: Acute Qualifiers: Atrial fibrillation type: A Plan to address problem: - failed cardioversion earlier - cardiology evaluation ongoing - back in A-fib - continue amiodarone drip (change to p.o. once tolerating enterally) (9) JUANITA (acute kidney injury) Current Visit: Yes Status: Acute Plan to address problem: - on Dialysis now - continue HD/UF per nephrology recommendations (10) Pyrexia of unknown origin Current Visit: Yes Status: Acute Plan to address problem: - dopplers negative for DVT - continue to treat with AB;'s empirically - continue micafungin (11) Severe sepsis Current Visit: Yes Status: Acute Plan to address problem: - continue AB's and follow cultures - resume vasopressors for MAP < 60mmHg not responsive to volume - all central vascular access has been discontinued after fungemia reported - care plan formulated with ID input - vascath and PICC pulled with new RIJ placed (trialysis catheter apparently) - clinically much better and again weaning off levophed - BC's from 09/27/16 growing in 1of 2 but still no ID yet - continue micafungin per ID recs and stop date - wound care nurse also managing back wounds - clinically stable (12) Emesis Current Visit: Yes Status: Acute Qualifiers: Vomiting type: V Vomiting Intractability: V Nausea presence: N Plan to address problem: - s/p surgical repair of gastric perforation - continue TPN for now (13) Discharge planning issues Current Visit: Yes Status: Acute Plan to address problem: - she remains critically ill on life sustaining interventions including MVS and at risk for further acute deterioration including .....35' CCT ....fdc prognosis is guarded Subjective Date of service: 10/06/16 Principal diagnosis: Acute resp failure on MVS; S/P Acute CVA; Acute Encephalopathy; JUANITA Interval history: Seen and examined at bedside; 24 hour events reviewed; nursing and respiratory care staff consulted; no adverse overnight events reported to me; getting cleaned at time of my visit; skin off back and buttocks erythematous with some exfoliation but no obvious pus-pockets or abscess; AMS is persistent; did not tolerate PSV trial today Objective Vital Signs - 12hr 10/06/16 10/06/16 10/06/16 00:30 00:36 01:00 Temperature Pulse Rate 88 87 85 Respiratory 21 15 Rate Blood Pressure 105/39 105/39 108/48 O2 Sat by Pulse 99 100 98 Oximetry O2 Sat by Pulse 100 Oximetry [ Assessment] 10/06/16 10/06/16 10/06/16 01:08 01:30 02:00 Temperature Pulse Rate 85 85 86 Respiratory 14 15 17 Rate Blood Pressure 108/48 108/48 106/41 O2 Sat by Pulse 98 98 98 Oximetry O2 Sat by Pulse Oximetry [ Assessment] 10/06/16 10/06/16 10/06/16 02:07 02:30 03:00 Temperature Pulse Rate 87 89 84 Respiratory 14 15 17 Rate Blood Pressure 106/41 106/41 109/54 O2 Sat by Pulse 98 99 100 Oximetry O2 Sat by Pulse Oximetry [ Assessment] 10/06/16 10/06/16 10/06/16 03:05 03:30 03:51 Temperature Pulse Rate 84 84 89 Respiratory 15 14 17 Rate Blood Pressure 109/54 109/54 106/56 O2 Sat by Pulse 99 99 99 Oximetry O2 Sat by Pulse Oximetry [ Assessment] 10/06/16 10/06/16 10/06/16 04:00 04:30 04:52 Temperature 98.9 F Pulse Rate 88 84 90 Respiratory 21 16 Rate Blood Pressure 120/65 119/53 119/53 O2 Sat by Pulse 98 100 95 Oximetry O2 Sat by Pulse Oximetry [ Assessment] 10/06/16 10/06/16 10/06/16 05:00 05:30 06:00 Temperature Pulse Rate 95 H 97 H 86 Respiratory 27 H 25 H 21 Rate Blood Pressure 120/65 120/65 119/57 O2 Sat by Pulse 99 97 98 Oximetry O2 Sat by Pulse Oximetry [ Assessment] 10/06/16 10/06/16 10/06/16 06:30 07:00 07:30 Temperature Pulse Rate 91 H 94 H 89 Respiratory 15 24 21 Rate Blood Pressure 119/57 122/62 122/62 O2 Sat by Pulse 98 91 94 Oximetry O2 Sat by Pulse Oximetry [ Assessment] 10/06/16 10/06/16 10/06/16 08:00 08:30 09:00 Temperature 98.4 F Pulse Rate 102 H 111 H 112 H Respiratory 22 29 H 25 H Rate Blood Pressure 122/62 159/90 195/95 O2 Sat by Pulse 92 93 94 Oximetry O2 Sat by Pulse Oximetry [ Assessment] 10/06/16 10/06/16 10/06/16 09:30 10:40 12:06 Temperature 99.2 F Pulse Rate 110 H 114 H Respiratory 27 H Rate Blood Pressure 187/84 152/80 O2 Sat by Pulse 94 93 Oximetry O2 Sat by Pulse Oximetry [ Assessment] Constitutional: no acute distress, other (grimaces with moving) Eyes: non-icteric, other (tracheostomy tube in midline of neck) ENT: oropharynx moist Neck: supple, no lymphadenopathy Effort: mildly labored Ascultation: Bilateral: diminished breath sounds (bases), rales (scant) Cardiovascular: regular rate and rhythm Gastrointestinal: hypoactive bowel sounds, soft, non-tender, non-distended Integumentary: other (erythema to skin of back with some healing areas; no obvious TEN's features) Extremities: no cyanosis, no edema, pulses normal, no ischemia or petechiae Neurologic: pupils equal and round, other (sedated) Psychiatric: other (unable to assess) CBC and BMP: 10/06/16 03:50 10/06/16 03:50 ABG, PT/INR, D-dimer: ABG POC ABG pH 7.310 (7.35-7.45) L 10/06/16 04:53 POC ABG pCO2 49.0 (35-45) H 10/06/16 04:53 POC ABG pO2 84 (80-105) 10/06/16 04:53 POC ABG HCO3 24.7 10/06/16 04:53 POC ABG Total CO2 26 10/06/16 04:53 POC ABG O2 Sat 95 10/06/16 04:53 PT/INR, D-dimer PT 13.8 Sec. (12.2-14.9) 09/15/16 05:00 INR 1.01 (0.87-1.13) 09/15/16 05:00 Abnormal lab findings: Abnormal Labs 09/03/16 09/03/16 09/03/16 12:12 15:07 16:20 WBC RBC Hgb Hct MCV MCH MCHC RDW Plt Count Lymph % (Auto) [place] % (Auto) Lymph # [place] # Seg Neutrophils % Seg Neuts % (Manual) Lymphocytes % (Manual) Monocytes % (Manual) Eosinophils % (Manual) Basophils % (Manual) Nucleated RBC % Seg Neutrophils # Seg Neutrophils # Man Lymphocytes # (Manual) Monocytes # (Manual) Eosinophils # (Manual) Fibrinogen dRVVT Confirm Interp Factor V Activity POC ABG pH 7.452 H POC ABG pCO2 POC ABG pO2 Sodium Potassium Chloride Carbon Dioxide BUN Creatinine Glucose POC Glucose 178 H Lactic Acid Calcium Phosphorus 2.20 L Magnesium 1.60 L Direct Bilirubin Troponin T C-Reactive Protein Total Protein Albumin Triglycerides Cholesterol LDL Cholesterol Direct HDL Cholesterol Urine WBC (Auto) Urine Creatinine Urine Total Protein Vancomycin Trough Rheumatoid Factor Complement C4 Crossmatch 09/03/16 09/03/16 09/03/16 17:57 17:58 23:50 WBC RBC Hgb Hct MCV MCH MCHC RDW Plt Count Lymph % (Auto) [place] % (Auto) Lymph # [place] # Seg Neutrophils % Seg Neuts % (Manual) Lymphocytes % (Manual) Monocytes % (Manual) Eosinophils % (Manual) Basophils % (Manual) Nucleated RBC % Seg Neutrophils # Seg Neutrophils # Man Lymphocytes # (Manual) Monocytes # (Manual) Eosinophils # (Manual) Fibrinogen dRVVT Confirm Interp Factor V Activity POC ABG pH POC ABG pCO2 POC ABG pO2 Sodium Potassium Chloride Carbon Dioxide BUN Creatinine Glucose POC Glucose 162 H 145 H Lactic Acid Calcium Phosphorus 2.30 L Magnesium Direct Bilirubin Troponin T C-Reactive Protein Total Protein Albumin Triglycerides Cholesterol LDL Cholesterol Direct HDL Cholesterol Urine WBC (Auto) Urine Creatinine Urine Total Protein Vancomycin Trough Rheumatoid Factor Complement C4 Crossmatch 09/04/16 09/04/16 09/04/16 03:31 03:31 05:42 WBC RBC Hgb 9.7 L D Hct MCV 72 L MCH 23 L MCHC RDW 17.5 H Plt Count Lymph % (Auto) 11.1 L [place] % (Auto) Lymph # [place] # Seg Neutrophils % 84.3 H Seg Neuts % (Manual) Lymphocytes % (Manual) Monocytes % (Manual) Eosinophils % (Manual) Basophils % (Manual) Nucleated RBC % Seg Neutrophils # 8.9 H Seg Neutrophils # Man Lymphocytes # (Manual) Monocytes # (Manual) Eosinophils # (Manual) Fibrinogen dRVVT Confirm Interp Factor V Activity POC ABG pH POC ABG pCO2 POC ABG pO2 Sodium 135 L Potassium 2.9 L* Chloride 97.2 L Carbon Dioxide 19 L BUN Creatinine 1.7 H Glucose 170 H POC Glucose 152 H Lactic Acid Calcium Phosphorus Magnesium Direct Bilirubin Troponin T C-Reactive Protein Total Protein Albumin Triglycerides 160 H Cholesterol LDL Cholesterol Direct HDL Cholesterol 31 L Urine WBC (Auto) Urine Creatinine Urine Total Protein Vancomycin Trough Rheumatoid Factor Complement C4 Crossmatch 09/04/16 09/04/16 09/04/16 11:34 17:46 23:29 WBC RBC Hgb Hct MCV MCH MCHC RDW Plt Count Lymph % (Auto) [place] % (Auto) Lymph # [place] # Seg Neutrophils % Seg Neuts % (Manual) Lymphocytes % (Manual) Monocytes % (Manual) Eosinophils % (Manual) Basophils % (Manual) Nucleated RBC % Seg Neutrophils # Seg Neutrophils # Man Lymphocytes # (Manual) Monocytes # (Manual) Eosinophils # (Manual) Fibrinogen dRVVT Confirm Interp Factor V Activity POC ABG pH POC ABG pCO2 POC ABG pO2 Sodium Potassium Chloride Carbon Dioxide BUN Creatinine Glucose POC Glucose 165 H 210 H 139 H Lactic Acid Calcium Phosphorus Magnesium Direct Bilirubin Troponin T C-Reactive Protein Total Protein Albumin Triglycerides Cholesterol LDL Cholesterol Direct HDL Cholesterol Urine WBC (Auto) Urine Creatinine Urine Total Protein Vancomycin Trough Rheumatoid Factor Complement C4 Crossmatch 09/05/16 09/05/16 09/05/16 04:05 04:05 05:38 WBC RBC Hgb Hct MCV 76 L D MCH 23 L MCHC RDW 17.8 H Plt Count Lymph % (Auto) [place] % (Auto) Lymph # [place] # Seg Neutrophils % Seg Neuts % (Manual) Lymphocytes % (Manual) Monocytes % (Manual) Eosinophils % (Manual) Basophils % (Manual) Nucleated RBC % Seg Neutrophils # Seg Neutrophils # Man Lymphocytes # (Manual) Monocytes # (Manual) Eosinophils # (Manual) Fibrinogen dRVVT Confirm Interp Factor V Activity POC ABG pH POC ABG pCO2 POC ABG pO2 Sodium 134 L Potassium Chloride Carbon Dioxide 18 L BUN Creatinine 1.8 H Glucose 192 H POC Glucose 175 H Lactic Acid Calcium Phosphorus Magnesium Direct Bilirubin Troponin T C-Reactive Protein Total Protein Albumin Triglycerides Cholesterol LDL Cholesterol Direct HDL Cholesterol Urine WBC (Auto) Urine Creatinine Urine Total Protein Vancomycin Trough Rheumatoid Factor Complement C4 Crossmatch 09/05/16 09/05/16 09/05/16 11:38 17:48 23:22 WBC RBC Hgb Hct MCV MCH MCHC RDW Plt Count Lymph % (Auto) [place] % (Auto) Lymph # [place] # Seg Neutrophils % Seg Neuts % (Manual) Lymphocytes % (Manual) Monocytes % (Manual) Eosinophils % (Manual) Basophils % (Manual) Nucleated RBC % Seg Neutrophils # Seg Neutrophils # Man Lymphocytes # (Manual) Monocytes # (Manual) Eosinophils # (Manual) Fibrinogen dRVVT Confirm Interp Factor V Activity POC ABG pH POC ABG pCO2 POC ABG pO2 Sodium Potassium Chloride Carbon Dioxide BUN Creatinine Glucose POC Glucose 164 H 186 H 195 H Lactic Acid Calcium Phosphorus Magnesium Direct Bilirubin Troponin T C-Reactive Protein Total Protein Albumin Triglycerides Cholesterol LDL Cholesterol Direct HDL Cholesterol Urine WBC (Auto) Urine Creatinine Urine Total Protein Vancomycin Trough Rheumatoid Factor Complement C4 Crossmatch 09/06/16 09/06/16 09/06/16 04:12 05:59 07:32 WBC RBC Hgb Hct MCV MCH MCHC RDW Plt Count Lymph % (Auto) [place] % (Auto) Lymph # [place] # Seg Neutrophils % Seg Neuts % (Manual) Lymphocytes % (Manual) Monocytes % (Manual) Eosinophils % (Manual) Basophils % (Manual) Nucleated RBC % Seg Neutrophils # Seg Neutrophils # Man Lymphocytes # (Manual) Monocytes # (Manual) Eosinophils # (Manual) Fibrinogen dRVVT Confirm Interp Factor V Activity POC ABG pH 7.514 H POC ABG pCO2 29.1 L POC ABG pO2 72 L Sodium 133 L Potassium 3.4 L Chloride 94.9 L Carbon Dioxide 19 L BUN 30 H Creatinine 2.1 H Glucose 139 H POC Glucose 146 H Lactic Acid Calcium Phosphorus Magnesium Direct Bilirubin Troponin T C-Reactive Protein Total Protein Albumin Triglycerides Cholesterol LDL Cholesterol Direct HDL Cholesterol Urine WBC (Auto) Urine Creatinine Urine Total Protein Vancomycin Trough Rheumatoid Factor Complement C4 Crossmatch 09/06/16 09/06/16 09/06/16 11:57 17:58 19:02 WBC RBC Hgb Hct MCV MCH MCHC RDW Plt Count Lymph % (Auto) [place] % (Auto) Lymph # [place] # Seg Neutrophils % Seg Neuts % (Manual) Lymphocytes % (Manual) Monocytes % (Manual) Eosinophils % (Manual) Basophils % (Manual) Nucleated RBC % Seg Neutrophils # Seg Neutrophils # Man Lymphocytes # (Manual) Monocytes # (Manual) Eosinophils # (Manual) Fibrinogen dRVVT Confirm Interp Factor V Activity POC ABG pH 7.465 H POC ABG pCO2 32.0 L POC ABG pO2 Sodium Potassium Chloride Carbon Dioxide BUN Creatinine Glucose POC Glucose 165 H 160 H Lactic Acid Calcium Phosphorus Magnesium Direct Bilirubin Troponin T C-Reactive Protein Total Protein Albumin Triglycerides Cholesterol LDL Cholesterol Direct HDL Cholesterol Urine WBC (Auto) Urine Creatinine Urine Total Protein Vancomycin Trough Rheumatoid Factor Complement C4 Crossmatch 09/06/16 09/07/16 09/07/16 23:45 02:47 02:47 WBC RBC Hgb Hct MCV MCH MCHC RDW Plt Count Lymph % (Auto) [place] % (Auto) Lymph # [place] # Seg Neutrophils % Seg Neuts % (Manual) Lymphocytes % (Manual) Monocytes % (Manual) Eosinophils % (Manual) Basophils % (Manual) Nucleated RBC % Seg Neutrophils # Seg Neutrophils # Man Lymphocytes # (Manual) Monocytes # (Manual) Eosinophils # (Manual) Fibrinogen dRVVT Confirm Interp Factor V Activity POC ABG pH POC ABG pCO2 POC ABG pO2 Sodium Potassium Chloride Carbon Dioxide BUN Creatinine Glucose POC Glucose 204 H Lactic Acid Calcium Phosphorus Magnesium Direct Bilirubin Troponin T C-Reactive Protein Total Protein Albumin Triglycerides Cholesterol LDL Cholesterol Direct HDL Cholesterol Urine WBC (Auto) 68.0 H Urine Creatinine 106.1 H Urine Total Protein Vancomycin Trough Rheumatoid Factor Complement C4 Crossmatch 09/07/16 09/07/16 09/07/16 04:50 06:19 06:39 WBC RBC Hgb Hct MCV MCH MCHC RDW Plt Count Lymph % (Auto) [place] % (Auto) Lymph # [place] # Seg Neutrophils % Seg Neuts % (Manual) Lymphocytes % (Manual) Monocytes % (Manual) Eosinophils % (Manual) Basophils % (Manual) Nucleated RBC % Seg Neutrophils # Seg Neutrophils # Man Lymphocytes # (Manual) Monocytes # (Manual) Eosinophils # (Manual) Fibrinogen dRVVT Confirm Interp Factor V Activity POC ABG pH 7.457 H POC ABG pCO2 32.1 L POC ABG pO2 76 L Sodium 132 L Potassium Chloride 94.7 L Carbon Dioxide BUN 53 H Creatinine 2.9 H Glucose 151 H POC Glucose 149 H Lactic Acid Calcium Phosphorus Magnesium Direct Bilirubin Troponin T C-Reactive Protein Total Protein Albumin Triglycerides Cholesterol LDL Cholesterol Direct HDL Cholesterol Urine WBC (Auto) Urine Creatinine Urine Total Protein Vancomycin Trough Rheumatoid Factor Complement C4 Crossmatch 09/07/16 09/07/16 09/07/16 09:20 11:43 11:43 WBC 19.4 H RBC Hgb 8.3 L Hct 26.4 L D MCV 72 L D MCH 22 L MCHC RDW 17.9 H Plt Count Lymph % (Auto) 8.5 L [place] % (Auto) Lymph # [place] # 1.0 H Seg Neutrophils % 85.8 H Seg Neuts % (Manual) Lymphocytes % (Manual) Monocytes % (Manual) Eosinophils % (Manual) Basophils % (Manual) Nucleated RBC % Seg Neutrophils # 16.6 H Seg Neutrophils # Man Lymphocytes # (Manual) Monocytes # (Manual) Eosinophils # (Manual) Fibrinogen dRVVT Confirm Interp Factor V Activity POC ABG pH POC ABG pCO2 POC ABG pO2 Sodium 134 L Potassium Chloride 97.2 L Carbon Dioxide 20 L BUN 58 H Creatinine 2.9 H Glucose 147 H POC Glucose Lactic Acid Calcium Phosphorus 2.40 L Magnesium 2.40 H Direct Bilirubin Troponin T C-Reactive Protein Total Protein 5.8 L Albumin 2.2 L Triglycerides Cholesterol LDL Cholesterol Direct HDL Cholesterol Urine WBC (Auto) Urine Creatinine Urine Total Protein Vancomycin Trough Rheumatoid Factor Complement C4 58 H Crossmatch 09/07/16 09/07/16 09/07/16 11:50 16:00 17:31 WBC RBC Hgb Hct MCV MCH MCHC RDW Plt Count Lymph % (Auto) [place] % (Auto) Lymph # [place] # Seg Neutrophils % Seg Neuts % (Manual) Lymphocytes % (Manual) Monocytes % (Manual) Eosinophils % (Manual) Basophils % (Manual) Nucleated RBC % Seg Neutrophils # Seg Neutrophils # Man Lymphocytes # (Manual) Monocytes # (Manual) Eosinophils # (Manual) Fibrinogen dRVVT Confirm Interp Factor V Activity POC ABG pH POC ABG pCO2 POC ABG pO2 158 H Sodium Potassium Chloride Carbon Dioxide BUN Creatinine Glucose POC Glucose 175 H Lactic Acid Calcium Phosphorus Magnesium Direct Bilirubin Troponin T C-Reactive Protein Total Protein Albumin Triglycerides Cholesterol LDL Cholesterol Direct HDL Cholesterol Urine WBC (Auto) Urine Creatinine 66.3 H Urine Total Protein Vancomycin Trough Rheumatoid Factor Complement C4 Crossmatch 09/07/16 09/08/16 09/08/16 23:50 05:46 06:18 WBC 17.8 H RBC 3.58 L Hgb 8.1 L Hct 25.5 L MCV 71 L MCH 23 L MCHC RDW 18.4 H Plt Count Lymph % (Auto) [place] % (Auto) Lymph # [place] # Seg Neutrophils % Seg Neuts % (Manual) 92.0 H Lymphocytes % (Manual) 6.0 L Monocytes % (Manual) Eosinophils % (Manual) Basophils % (Manual) Nucleated RBC % Seg Neutrophils # Seg Neutrophils # Man 16.4 H Lymphocytes # (Manual) 1.1 L Monocytes # (Manual) Eosinophils # (Manual) Fibrinogen dRVVT Confirm Interp Factor V Activity POC ABG pH POC ABG pCO2 34.3 L POC ABG pO2 71 L Sodium Potassium Chloride Carbon Dioxide BUN Creatinine Glucose POC Glucose 216 H Lactic Acid Calcium Phosphorus Magnesium Direct Bilirubin Troponin T C-Reactive Protein Total Protein Albumin Triglycerides Cholesterol LDL Cholesterol Direct HDL Cholesterol Urine WBC (Auto) Urine Creatinine Urine Total Protein Vancomycin Trough Rheumatoid Factor Complement C4 Crossmatch 09/08/16 09/08/16 09/08/16 06:18 06:51 10:55 WBC RBC Hgb Hct MCV MCH MCHC RDW Plt Count Lymph % (Auto) [place] % (Auto) Lymph # [place] # Seg Neutrophils % Seg Neuts % (Manual) Lymphocytes % (Manual) Monocytes % (Manual) Eosinophils % (Manual) Basophils % (Manual) Nucleated RBC % Seg Neutrophils # Seg Neutrophils # Man Lymphocytes # (Manual) Monocytes # (Manual) Eosinophils # (Manual) Fibrinogen dRVVT Confirm Interp Factor V Activity POC ABG pH POC ABG pCO2 POC ABG pO2 Sodium 133 L Potassium Chloride 96.9 L Carbon Dioxide 20 L BUN 63 H Creatinine 2.7 H Glucose 195 H POC Glucose 204 H 169 H Lactic Acid Calcium Phosphorus Magnesium Direct Bilirubin Troponin T C-Reactive Protein Total Protein Albumin Triglycerides Cholesterol LDL Cholesterol Direct HDL Cholesterol Urine WBC (Auto) Urine Creatinine Urine Total Protein Vancomycin Trough Rheumatoid Factor Complement C4 Crossmatch 09/08/16 09/08/16 09/08/16 11:48 11:48 11:48 WBC RBC Hgb Hct MCV MCH MCHC RDW Plt Count Lymph % (Auto) [place] % (Auto) Lymph # [place] # Seg Neutrophils % Seg Neuts % (Manual) Lymphocytes % (Manual) Monocytes % (Manual) Eosinophils % (Manual) Basophils % (Manual) Nucleated RBC % Seg Neutrophils # Seg Neutrophils # Man Lymphocytes # (Manual) Monocytes # (Manual) Eosinophils # (Manual) Fibrinogen 750 H dRVVT Confirm Interp Factor V Activity POC ABG pH POC ABG pCO2 POC ABG pO2 Sodium Potassium Chloride Carbon Dioxide BUN Creatinine Glucose POC Glucose Lactic Acid Calcium Phosphorus Magnesium Direct Bilirubin Troponin T C-Reactive Protein 15.70 H Total Protein Albumin Triglycerides Cholesterol LDL Cholesterol Direct HDL Cholesterol Urine WBC (Auto) Urine Creatinine Urine Total Protein Vancomycin Trough Rheumatoid Factor 24 H Complement C4 Crossmatch 09/08/16 09/08/16 09/09/16 15:35 18:25 00:24 WBC RBC Hgb Hct MCV MCH MCHC RDW Plt Count Lymph % (Auto) [place] % (Auto) Lymph # [place] # Seg Neutrophils % Seg Neuts % (Manual) Lymphocytes % (Manual) Monocytes % (Manual) Eosinophils % (Manual) Basophils % (Manual) Nucleated RBC % Seg Neutrophils # Seg Neutrophils # Man Lymphocytes # (Manual) Monocytes # (Manual) Eosinophils # (Manual) Fibrinogen dRVVT Confirm Interp Factor V Activity 182 H POC ABG pH POC ABG pCO2 POC ABG pO2 Sodium Potassium Chloride Carbon Dioxide BUN Creatinine Glucose POC Glucose 184 H 216 H Lactic Acid Calcium Phosphorus Magnesium Direct Bilirubin Troponin T C-Reactive Protein Total Protein Albumin Triglycerides Cholesterol LDL Cholesterol Direct HDL Cholesterol Urine WBC (Auto) Urine Creatinine Urine Total Protein Vancomycin Trough Rheumatoid Factor Complement C4 Crossmatch 09/09/16 09/09/16 09/09/16 03:00 03:00 04:04 WBC 27.9 H RBC Hgb 8.7 L Hct 28.1 L MCV 72 L MCH 22 L MCHC RDW 18.4 H Plt Count 485 H Lymph % (Auto) [place] % (Auto) Lymph # [place] # Seg Neutrophils % Seg Neuts % (Manual) 77.0 H Lymphocytes % (Manual) 9.0 L Monocytes % (Manual) Eosinophils % (Manual) Basophils % (Manual) Nucleated RBC % Seg Neutrophils # Seg Neutrophils # Man 21.5 H Lymphocytes # (Manual) Monocytes # (Manual) 2.0 H Eosinophils # (Manual) Fibrinogen dRVVT Confirm Interp Factor V Activity POC ABG pH POC ABG pCO2 POC ABG pO2 121 H Sodium 135 L Potassium Chloride 96.3 L Carbon Dioxide 21 L BUN 83 H Creatinine 3.0 H Glucose 135 H POC Glucose Lactic Acid Calcium Phosphorus Magnesium Direct Bilirubin Troponin T C-Reactive Protein Total Protein Albumin Triglycerides Cholesterol LDL Cholesterol Direct HDL Cholesterol Urine WBC (Auto) Urine Creatinine Urine Total Protein Vancomycin Trough Rheumatoid Factor Complement C4 Crossmatch 09/09/16 09/09/16 09/09/16 05:41 11:55 14:13 WBC RBC Hgb Hct MCV MCH MCHC RDW Plt Count Lymph % (Auto) [place] % (Auto) Lymph # [place] # Seg Neutrophils % Seg Neuts % (Manual) Lymphocytes % (Manual) Monocytes % (Manual) Eosinophils % (Manual) Basophils % (Manual) Nucleated RBC % Seg Neutrophils # Seg Neutrophils # Man Lymphocytes # (Manual) Monocytes # (Manual) Eosinophils # (Manual) Fibrinogen dRVVT Confirm Interp Factor V Activity POC ABG pH POC ABG pCO2 POC ABG pO2 Sodium Potassium Chloride Carbon Dioxide BUN Creatinine Glucose POC Glucose 155 H 186 H Lactic Acid Calcium Phosphorus Magnesium Direct Bilirubin Troponin T C-Reactive Protein Total Protein Albumin Triglycerides Cholesterol LDL Cholesterol Direct HDL Cholesterol Urine WBC (Auto) 25.0 H Urine Creatinine Urine Total Protein Vancomycin Trough Rheumatoid Factor Complement C4 Crossmatch 09/09/16 09/09/16 09/10/16 17:33 23:13 05:09 WBC RBC Hgb Hct MCV MCH MCHC RDW Plt Count Lymph % (Auto) [place] % (Auto) Lymph # [place] # Seg Neutrophils % Seg Neuts % (Manual) Lymphocytes % (Manual) Monocytes % (Manual) Eosinophils % (Manual) Basophils % (Manual) Nucleated RBC % Seg Neutrophils # Seg Neutrophils # Man Lymphocytes # (Manual) Monocytes # (Manual) Eosinophils # (Manual) Fibrinogen dRVVT Confirm Interp Factor V Activity POC ABG pH POC ABG pCO2 POC ABG pO2 74 L Sodium Potassium Chloride Carbon Dioxide BUN Creatinine Glucose POC Glucose 211 H 215 H Lactic Acid Calcium Phosphorus Magnesium Direct Bilirubin Troponin T C-Reactive Protein Total Protein Albumin Triglycerides Cholesterol LDL Cholesterol Direct HDL Cholesterol Urine WBC (Auto) Urine Creatinine Urine Total Protein Vancomycin Trough Rheumatoid Factor Complement C4 Crossmatch 09/10/16 09/10/16 09/10/16 05:17 05:17 11:31 WBC 15.8 H RBC 3.25 L Hgb 7.3 L Hct 22.9 L MCV 71 L MCH 23 L MCHC RDW 18.4 H Plt Count Lymph % (Auto) [place] % (Auto) Lymph # [place] # Seg Neutrophils % Seg Neuts % (Manual) 91.0 H Lymphocytes % (Manual) 4.0 L Monocytes % (Manual) Eosinophils % (Manual) Basophils % (Manual) Nucleated RBC % Seg Neutrophils # Seg Neutrophils # Man 14.4 H Lymphocytes # (Manual) 0.6 L Monocytes # (Manual) Eosinophils # (Manual) Fibrinogen dRVVT Confirm Interp Factor V Activity POC ABG pH POC ABG pCO2 POC ABG pO2 Sodium Potassium Chloride Carbon Dioxide 21 L BUN 93 H Creatinine 2.9 H Glucose 146 H POC Glucose 188 H Lactic Acid Calcium 8.1 L Phosphorus Magnesium Direct Bilirubin Troponin T C-Reactive Protein Total Protein Albumin Triglycerides Cholesterol LDL Cholesterol Direct HDL Cholesterol Urine WBC (Auto) Urine Creatinine Urine Total Protein Vancomycin Trough Rheumatoid Factor Complement C4 Crossmatch 09/10/16 09/10/16 09/10/16 13:17 17:20 23:32 WBC RBC Hgb Hct MCV MCH MCHC RDW Plt Count Lymph % (Auto) [place] % (Auto) Lymph # [place] # Seg Neutrophils % Seg Neuts % (Manual) Lymphocytes % (Manual) Monocytes % (Manual) Eosinophils % (Manual) Basophils % (Manual) Nucleated RBC % Seg Neutrophils # Seg Neutrophils # Man Lymphocytes # (Manual) Monocytes # (Manual) Eosinophils # (Manual) Fibrinogen dRVVT Confirm Interp Factor V Activity POC ABG pH POC ABG pCO2 POC ABG pO2 Sodium Potassium Chloride Carbon Dioxide BUN Creatinine Glucose POC Glucose 199 H 186 H Lactic Acid Calcium Phosphorus Magnesium Direct Bilirubin Troponin T C-Reactive Protein Total Protein Albumin Triglycerides Cholesterol LDL Cholesterol Direct HDL Cholesterol Urine WBC (Auto) Urine Creatinine Urine Total Protein Vancomycin Trough Rheumatoid Factor Complement C4 Crossmatch See Detail 09/11/16 09/11/16 09/11/16 05:10 05:10 05:17 WBC 28.4 H RBC Hgb 9.2 L Hct 29.3 L D MCV 73 L MCH 23 L MCHC RDW 18.9 H Plt Count 452 H Lymph % (Auto) [place] % (Auto) Lymph # [place] # Seg Neutrophils % Seg Neuts % (Manual) 89.5 H Lymphocytes % (Manual) 2.0 L Monocytes % (Manual) Eosinophils % (Manual) Basophils % (Manual) Nucleated RBC % Seg Neutrophils # Seg Neutrophils # Man 25.4 H Lymphocytes # (Manual) 0.6 L Monocytes # (Manual) 1.3 H Eosinophils # (Manual) Fibrinogen dRVVT Confirm Interp Factor V Activity POC ABG pH POC ABG pCO2 POC ABG pO2 Sodium 136 L Potassium Chloride Carbon Dioxide 18 L BUN 107 H Creatinine 2.6 H Glucose 187 H POC Glucose 230 H Lactic Acid Calcium 8.3 L Phosphorus Magnesium Direct Bilirubin Troponin T C-Reactive Protein Total Protein Albumin Triglycerides Cholesterol LDL Cholesterol Direct HDL Cholesterol Urine WBC (Auto) Urine Creatinine Urine Total Protein Vancomycin Trough Rheumatoid Factor Complement C4 Crossmatch 09/11/16 09/11/16 09/11/16 05:55 12:02 17:32 WBC RBC Hgb Hct MCV MCH MCHC RDW Plt Count Lymph % (Auto) [place] % (Auto) Lymph # [place] # Seg Neutrophils % Seg Neuts % (Manual) Lymphocytes % (Manual) Monocytes % (Manual) Eosinophils % (Manual) Basophils % (Manual) Nucleated RBC % Seg Neutrophils # Seg Neutrophils # Man Lymphocytes # (Manual) Monocytes # (Manual) Eosinophils # (Manual) Fibrinogen dRVVT Confirm Interp Factor V Activity POC ABG pH POC ABG pCO2 33.8 L POC ABG pO2 Sodium Potassium Chloride Carbon Dioxide BUN Creatinine Glucose POC Glucose 191 H 239 H Lactic Acid Calcium Phosphorus Magnesium Direct Bilirubin Troponin T C-Reactive Protein Total Protein Albumin Triglycerides Cholesterol LDL Cholesterol Direct HDL Cholesterol Urine WBC (Auto) Urine Creatinine Urine Total Protein Vancomycin Trough Rheumatoid Factor Complement C4 Crossmatch 09/11/16 09/12/16 09/12/16 23:52 05:09 05:32 WBC RBC Hgb Hct MCV MCH MCHC RDW Plt Count Lymph % (Auto) [place] % (Auto) Lymph # [place] # Seg Neutrophils % Seg Neuts % (Manual) Lymphocytes % (Manual) Monocytes % (Manual) Eosinophils % (Manual) Basophils % (Manual) Nucleated RBC % Seg Neutrophils # Seg Neutrophils # Man Lymphocytes # (Manual) Monocytes # (Manual) Eosinophils # (Manual) Fibrinogen dRVVT Confirm Interp Factor V Activity POC ABG pH POC ABG pCO2 34.6 L POC ABG pO2 Sodium Potassium Chloride Carbon Dioxide BUN Creatinine Glucose POC Glucose 265 H 184 H Lactic Acid Calcium Phosphorus Magnesium Direct Bilirubin Troponin T C-Reactive Protein Total Protein Albumin Triglycerides Cholesterol LDL Cholesterol Direct HDL Cholesterol Urine WBC (Auto) Urine Creatinine Urine Total Protein Vancomycin Trough Rheumatoid Factor Complement C4 Crossmatch 09/12/16 09/12/16 09/12/16 06:45 06:45 07:22 WBC 31.7 H RBC 3.54 L Hgb 8.3 L Hct 25.9 L MCV 73 L MCH 23 L MCHC RDW 18.9 H Plt Count Lymph % (Auto) [place] % (Auto) Lymph # [place] # Seg Neutrophils % Seg Neuts % (Manual) 88.5 H Lymphocytes % (Manual) 4.5 L Monocytes % (Manual) Eosinophils % (Manual) Basophils % (Manual) Nucleated RBC % Seg Neutrophils # Seg Neutrophils # Man 28.1 H Lymphocytes # (Manual) Monocytes # (Manual) 1.0 H Eosinophils # (Manual) Fibrinogen dRVVT Confirm Interp Factor V Activity POC ABG pH POC ABG pCO2 POC ABG pO2 Sodium Potassium Chloride Carbon Dioxide 20 L BUN 115 H Creatinine 2.7 H Glucose 165 H POC Glucose Lactic Acid Calcium 8.0 L Phosphorus Magnesium Direct Bilirubin Troponin T C-Reactive Protein Total Protein Albumin Triglycerides 217 H Cholesterol LDL Cholesterol Direct HDL Cholesterol Urine WBC (Auto) Urine Creatinine Urine Total Protein Vancomycin Trough Rheumatoid Factor Complement C4 Crossmatch 09/12/16 09/12/16 09/12/16 07:22 09:59 12:21 WBC RBC Hgb Hct MCV MCH MCHC RDW Plt Count Lymph % (Auto) [place] % (Auto) Lymph # [place] # Seg Neutrophils % Seg Neuts % (Manual) Lymphocytes % (Manual) Monocytes % (Manual) Eosinophils % (Manual) Basophils % (Manual) Nucleated RBC % Seg Neutrophils # Seg Neutrophils # Man Lymphocytes # (Manual) Monocytes # (Manual) Eosinophils # (Manual) Fibrinogen dRVVT Confirm Interp Positive H Factor V Activity POC ABG pH POC ABG pCO2 POC ABG pO2 Sodium Potassium Chloride Carbon Dioxide BUN Creatinine Glucose POC Glucose 224 H Lactic Acid Calcium Phosphorus Magnesium Direct Bilirubin Troponin T C-Reactive Protein 1.70 H Total Protein Albumin Triglycerides Cholesterol LDL Cholesterol Direct HDL Cholesterol Urine WBC (Auto) Urine Creatinine Urine Total Protein Vancomycin Trough Rheumatoid Factor Complement C4 Crossmatch 09/12/16 09/12/16 09/13/16 16:51 23:28 04:00 WBC 45.0 H* RBC Hgb 9.4 L Hct MCV 75 L MCH 23 L MCHC RDW 19.0 H Plt Count 470 H Lymph % (Auto) [place] % (Auto) Lymph # [place] # Seg Neutrophils % Seg Neuts % (Manual) 89.0 H Lymphocytes % (Manual) 5.0 L Monocytes % (Manual) Eosinophils % (Manual) Basophils % (Manual) Nucleated RBC % Seg Neutrophils # Seg Neutrophils # Man 40.1 H Lymphocytes # (Manual) Monocytes # (Manual) Eosinophils # (Manual) Fibrinogen dRVVT Confirm Interp Factor V Activity POC ABG pH POC ABG pCO2 POC ABG pO2 Sodium Potassium Chloride Carbon Dioxide BUN Creatinine Glucose POC Glucose 169 H 150 H Lactic Acid Calcium Phosphorus Magnesium Direct Bilirubin Troponin T C-Reactive Protein Total Protein Albumin Triglycerides Cholesterol LDL Cholesterol Direct HDL Cholesterol Urine WBC (Auto) Urine Creatinine Urine Total Protein Vancomycin Trough Rheumatoid Factor Complement C4 Crossmatch 09/13/16 09/13/16 09/13/16 04:00 11:26 17:31 WBC RBC Hgb Hct MCV MCH MCHC RDW Plt Count Lymph % (Auto) [place] % (Auto) Lymph # [place] # Seg Neutrophils % Seg Neuts % (Manual) Lymphocytes % (Manual) Monocytes % (Manual) Eosinophils % (Manual) Basophils % (Manual) Nucleated RBC % Seg Neutrophils # Seg Neutrophils # Man Lymphocytes # (Manual) Monocytes # (Manual) Eosinophils # (Manual) Fibrinogen dRVVT Confirm Interp Factor V Activity POC ABG pH POC ABG pCO2 POC ABG pO2 Sodium Potassium Chloride Carbon Dioxide 20 L BUN 116 H Creatinine 3.0 H Glucose 172 H POC Glucose 140 H 183 H Lactic Acid Calcium Phosphorus Magnesium Direct Bilirubin Troponin T C-Reactive Protein Total Protein 6.2 L Albumin 2.9 L Triglycerides Cholesterol LDL Cholesterol Direct HDL Cholesterol Urine WBC (Auto) Urine Creatinine Urine Total Protein Vancomycin Trough Rheumatoid Factor Complement C4 Crossmatch 09/13/16 09/14/16 09/14/16 23:23 04:06 04:07 WBC 29.4 H RBC Hgb 8.9 L Hct 27.3 L MCV 75 L MCH 24 L MCHC RDW 19.1 H Plt Count Lymph % (Auto) [place] % (Auto) Lymph # [place] # Seg Neutrophils % Seg Neuts % (Manual) 84.0 H Lymphocytes % (Manual) 6.0 L Monocytes % (Manual) 9.0 H Eosinophils % (Manual) Basophils % (Manual) Nucleated RBC % Seg Neutrophils # Seg Neutrophils # Man 24.7 H Lymphocytes # (Manual) Monocytes # (Manual) 2.6 H Eosinophils # (Manual) Fibrinogen dRVVT Confirm Interp Factor V Activity POC ABG pH 7.342 L POC ABG pCO2 POC ABG pO2 116 H Sodium Potassium Chloride Carbon Dioxide BUN Creatinine Glucose POC Glucose 154 H Lactic Acid Calcium Phosphorus Magnesium Direct Bilirubin Troponin T C-Reactive Protein Total Protein Albumin Triglycerides Cholesterol LDL Cholesterol Direct HDL Cholesterol Urine WBC (Auto) Urine Creatinine Urine Total Protein Vancomycin Trough Rheumatoid Factor Complement C4 Crossmatch 09/14/16 09/14/16 09/14/16 04:07 05:29 12:19 WBC RBC Hgb Hct MCV MCH MCHC RDW Plt Count Lymph % (Auto) [place] % (Auto) Lymph # [place] # Seg Neutrophils % Seg Neuts % (Manual) Lymphocytes % (Manual) Monocytes % (Manual) Eosinophils % (Manual) Basophils % (Manual) Nucleated RBC % Seg Neutrophils # Seg Neutrophils # Man Lymphocytes # (Manual) Monocytes # (Manual) Eosinophils # (Manual) Fibrinogen dRVVT Confirm Interp Factor V Activity POC ABG pH POC ABG pCO2 POC ABG pO2 Sodium 136 L Potassium Chloride Carbon Dioxide 18 L BUN 121 H Creatinine 2.8 H Glucose 214 H POC Glucose 239 H 181 H Lactic Acid Calcium Phosphorus Magnesium Direct Bilirubin Troponin T C-Reactive Protein Total Protein Albumin Triglycerides Cholesterol LDL Cholesterol Direct HDL Cholesterol Urine WBC (Auto) Urine Creatinine Urine Total Protein Vancomycin Trough Rheumatoid Factor Complement C4 Crossmatch 09/14/16 09/14/16 09/15/16 18:12 23:37 05:00 WBC 26.1 H RBC 3.05 L Hgb 7.2 L Hct 22.9 L MCV 75 L MCH 24 L MCHC RDW 19.0 H Plt Count Lymph % (Auto) [place] % (Auto) Lymph # [place] # Seg Neutrophils % Seg Neuts % (Manual) Lymphocytes % (Manual) Monocytes % (Manual) Eosinophils % (Manual) Basophils % (Manual) Nucleated RBC % Seg Neutrophils # Seg Neutrophils # Man Lymphocytes # (Manual) Monocytes # (Manual) Eosinophils # (Manual) Fibrinogen dRVVT Confirm Interp Factor V Activity POC ABG pH POC ABG pCO2 POC ABG pO2 Sodium Potassium Chloride Carbon Dioxide BUN Creatinine Glucose POC Glucose 266 H 154 H Lactic Acid Calcium Phosphorus Magnesium Direct Bilirubin Troponin T C-Reactive Protein Total Protein Albumin Triglycerides Cholesterol LDL Cholesterol Direct HDL Cholesterol Urine WBC (Auto) Urine Creatinine Urine Total Protein Vancomycin Trough Rheumatoid Factor Complement C4 Crossmatch 09/15/16 09/15/16 09/15/16 05:00 05:17 12:45 WBC RBC Hgb Hct MCV MCH MCHC RDW Plt Count Lymph % (Auto) [place] % (Auto) Lymph # [place] # Seg Neutrophils % Seg Neuts % (Manual) Lymphocytes % (Manual) Monocytes % (Manual) Eosinophils % (Manual) Basophils % (Manual) Nucleated RBC % Seg Neutrophils # Seg Neutrophils # Man Lymphocytes # (Manual) Monocytes # (Manual) Eosinophils # (Manual) Fibrinogen dRVVT Confirm Interp Factor V Activity POC ABG pH POC ABG pCO2 POC ABG pO2 Sodium Potassium 5.2 H Chloride Carbon Dioxide 18 L BUN 139 H Creatinine 3.7 H Glucose 227 H POC Glucose 226 H 244 H Lactic Acid Calcium 8.3 L Phosphorus Magnesium Direct Bilirubin Troponin T C-Reactive Protein Total Protein Albumin Triglycerides Cholesterol LDL Cholesterol Direct HDL Cholesterol Urine WBC (Auto) Urine Creatinine Urine Total Protein Vancomycin Trough Rheumatoid Factor Complement C4 Crossmatch 09/15/16 09/15/16 09/15/16 14:32 17:33 23:35 WBC RBC Hgb Hct MCV MCH MCHC RDW Plt Count Lymph % (Auto) [place] % (Auto) Lymph # [place] # Seg Neutrophils % Seg Neuts % (Manual) Lymphocytes % (Manual) Monocytes % (Manual) Eosinophils % (Manual) Basophils % (Manual) Nucleated RBC % Seg Neutrophils # Seg Neutrophils # Man Lymphocytes # (Manual) Monocytes # (Manual) Eosinophils # (Manual) Fibrinogen dRVVT Confirm Interp Factor V Activity POC ABG pH POC ABG pCO2 27.7 L POC ABG pO2 120 H Sodium Potassium Chloride Carbon Dioxide BUN Creatinine Glucose POC Glucose 232 H 167 H Lactic Acid Calcium Phosphorus Magnesium Direct Bilirubin Troponin T C-Reactive Protein Total Protein Albumin Triglycerides Cholesterol LDL Cholesterol Direct HDL Cholesterol Urine WBC (Auto) Urine Creatinine Urine Total Protein Vancomycin Trough Rheumatoid Factor Complement C4 Crossmatch 09/16/16 09/16/16 09/16/16 03:58 10:27 10:27 WBC 19.0 H RBC 2.77 L Hgb 6.5 L Hct 20.9 L MCV 76 L MCH 23 L MCHC RDW 19.3 H Plt Count Lymph % (Auto) 11.0 L [place] % (Auto) Lymph # [place] # 1.1 H Seg Neutrophils % 82.5 H Seg Neuts % (Manual) Lymphocytes % (Manual) Monocytes % (Manual) Eosinophils % (Manual) Basophils % (Manual) Nucleated RBC % Seg Neutrophils # 15.7 H Seg Neutrophils # Man Lymphocytes # (Manual) Monocytes # (Manual) Eosinophils # (Manual) Fibrinogen dRVVT Confirm Interp Factor V Activity POC ABG pH POC ABG pCO2 POC ABG pO2 Sodium Potassium Chloride 109.3 H Carbon Dioxide 18 L BUN 139 H Creatinine 4.1 H Glucose 144 H POC Glucose 146 H Lactic Acid Calcium 8.1 L Phosphorus Magnesium Direct Bilirubin Troponin T C-Reactive Protein Total Protein Albumin Triglycerides Cholesterol LDL Cholesterol Direct HDL Cholesterol Urine WBC (Auto) Urine Creatinine Urine Total Protein Vancomycin Trough Rheumatoid Factor Complement C4 Crossmatch 09/16/16 09/16/16 09/16/16 12:04 12:10 13:55 WBC RBC Hgb Hct MCV MCH MCHC RDW Plt Count Lymph % (Auto) [place] % (Auto) Lymph # [place] # Seg Neutrophils % Seg Neuts % (Manual) Lymphocytes % (Manual) Monocytes % (Manual) Eosinophils % (Manual) Basophils % (Manual) Nucleated RBC % Seg Neutrophils # Seg Neutrophils # Man Lymphocytes # (Manual) Monocytes # (Manual) Eosinophils # (Manual) Fibrinogen dRVVT Confirm Interp Factor V Activity POC ABG pH POC ABG pCO2 32.9 L POC ABG pO2 Sodium Potassium Chloride Carbon Dioxide BUN Creatinine Glucose POC Glucose 185 H Lactic Acid Calcium Phosphorus Magnesium Direct Bilirubin Troponin T C-Reactive Protein Total Protein Albumin Triglycerides Cholesterol LDL Cholesterol Direct HDL Cholesterol Urine WBC (Auto) Urine Creatinine Urine Total Protein Vancomycin Trough Rheumatoid Factor Complement C4 Crossmatch See Detail 09/16/16 09/16/16 09/16/16 17:55 19:19 23:48 WBC RBC Hgb Hct MCV MCH MCHC RDW Plt Count Lymph % (Auto) [place] % (Auto) Lymph # [place] # Seg Neutrophils % Seg Neuts % (Manual) Lymphocytes % (Manual) Monocytes % (Manual) Eosinophils % (Manual) Basophils % (Manual) Nucleated RBC % Seg Neutrophils # Seg Neutrophils # Man Lymphocytes # (Manual) Monocytes # (Manual) Eosinophils # (Manual) Fibrinogen dRVVT Confirm Interp Factor V Activity POC ABG pH POC ABG pCO2 POC ABG pO2 Sodium Potassium Chloride Carbon Dioxide BUN Creatinine Glucose POC Glucose 222 H 107 H Lactic Acid Calcium Phosphorus Magnesium Direct Bilirubin Troponin T C-Reactive Protein Total Protein Albumin Triglycerides Cholesterol LDL Cholesterol Direct HDL Cholesterol Urine WBC (Auto) Urine Creatinine 47.4 H Urine Total Protein 16 H Vancomycin Trough Rheumatoid Factor Complement C4 Crossmatch 09/17/16 09/17/16 09/17/16 03:45 03:45 04:55 WBC 19.6 H RBC 3.41 L Hgb 8.5 L Hct 26.7 L MCV 78 L MCH 25 L MCHC RDW 19.9 H Plt Count Lymph % (Auto) 9.3 L [place] % (Auto) Lymph # [place] # 1.2 H Seg Neutrophils % 83.9 H Seg Neuts % (Manual) Lymphocytes % (Manual) Monocytes % (Manual) Eosinophils % (Manual) Basophils % (Manual) Nucleated RBC % Seg Neutrophils # 16.4 H Seg Neutrophils # Man Lymphocytes # (Manual) Monocytes # (Manual) Eosinophils # (Manual) Fibrinogen dRVVT Confirm Interp Factor V Activity POC ABG pH POC ABG pCO2 POC ABG pO2 Sodium 146 H Potassium 5.1 H Chloride 110.9 H Carbon Dioxide 16 L BUN 146 H Creatinine 4.0 H Glucose 108 H POC Glucose 133 H Lactic Acid Calcium Phosphorus Magnesium 3.00 H Direct Bilirubin Troponin T C-Reactive Protein Total Protein Albumin Triglycerides Cholesterol LDL Cholesterol Direct HDL Cholesterol Urine WBC (Auto) Urine Creatinine Urine Total Protein Vancomycin Trough Rheumatoid Factor Complement C4 Crossmatch 09/17/16 09/17/16 09/17/16 11:15 17:33 23:47 WBC RBC Hgb Hct MCV MCH MCHC RDW Plt Count Lymph % (Auto) [place] % (Auto) Lymph # [place] # Seg Neutrophils % Seg Neuts % (Manual) Lymphocytes % (Manual) Monocytes % (Manual) Eosinophils % (Manual) Basophils % (Manual) Nucleated RBC % Seg Neutrophils # Seg Neutrophils # Man Lymphocytes # (Manual) Monocytes # (Manual) Eosinophils # (Manual) Fibrinogen dRVVT Confirm Interp Factor V Activity POC ABG pH POC ABG pCO2 POC ABG pO2 Sodium Potassium Chloride Carbon Dioxide BUN Creatinine Glucose POC Glucose 176 H 246 H 148 H Lactic Acid Calcium Phosphorus Magnesium Direct Bilirubin Troponin T C-Reactive Protein Total Protein Albumin Triglycerides Cholesterol LDL Cholesterol Direct HDL Cholesterol Urine WBC (Auto) Urine Creatinine Urine Total Protein Vancomycin Trough Rheumatoid Factor Complement C4 Crossmatch 09/18/16 09/18/16 09/18/16 05:33 08:31 08:31 WBC 18.0 H RBC 3.17 L Hgb 9.0 L Hct 25.7 L MCV MCH MCHC 35 H RDW 20.4 H Plt Count Lymph % (Auto) [place] % (Auto) Lymph # [place] # Seg Neutrophils % Seg Neuts % (Manual) Lymphocytes % (Manual) Monocytes % (Manual) Eosinophils % (Manual) Basophils % (Manual) Nucleated RBC % Seg Neutrophils # Seg Neutrophils # Man Lymphocytes # (Manual) Monocytes # (Manual) Eosinophils # (Manual) Fibrinogen dRVVT Confirm Interp Factor V Activity POC ABG pH POC ABG pCO2 POC ABG pO2 Sodium Potassium Chloride Carbon Dioxide 15 L BUN 124 H Creatinine 3.8 H Glucose POC Glucose 120 H Lactic Acid Calcium 8.1 L Phosphorus Magnesium Direct Bilirubin Troponin T C-Reactive Protein Total Protein Albumin Triglycerides Cholesterol LDL Cholesterol Direct HDL Cholesterol Urine WBC (Auto) Urine Creatinine Urine Total Protein Vancomycin Trough Rheumatoid Factor Complement C4 Crossmatch 09/18/16 09/18/16 09/18/16 12:03 15:34 17:50 WBC RBC Hgb Hct MCV MCH MCHC RDW Plt Count Lymph % (Auto) [place] % (Auto) Lymph # [place] # Seg Neutrophils % Seg Neuts % (Manual) Lymphocytes % (Manual) Monocytes % (Manual) Eosinophils % (Manual) Basophils % (Manual) Nucleated RBC % Seg Neutrophils # Seg Neutrophils # Man Lymphocytes # (Manual) Monocytes # (Manual) Eosinophils # (Manual) Fibrinogen dRVVT Confirm Interp Factor V Activity POC ABG pH POC ABG pCO2 25.7 L POC ABG pO2 66 L Sodium Potassium Chloride Carbon Dioxide BUN Creatinine Glucose POC Glucose 156 H 220 H Lactic Acid Calcium Phosphorus Magnesium Direct Bilirubin Troponin T C-Reactive Protein Total Protein Albumin Triglycerides Cholesterol LDL Cholesterol Direct HDL Cholesterol Urine WBC (Auto) Urine Creatinine Urine Total Protein Vancomycin Trough Rheumatoid Factor Complement C4 Crossmatch 09/19/16 09/19/16 09/19/16 06:21 09:50 09:50 WBC 17.1 H RBC 3.49 L Hgb 9.0 L Hct 28.1 L MCV MCH 26 L MCHC RDW 20.8 H Plt Count Lymph % (Auto) 11.5 L [place] % (Auto) 7.5 H Lymph # [place] # 1.3 H Seg Neutrophils % 79.8 H Seg Neuts % (Manual) Lymphocytes % (Manual) Monocytes % (Manual) Eosinophils % (Manual) Basophils % (Manual) Nucleated RBC % Seg Neutrophils # 13.7 H Seg Neutrophils # Man Lymphocytes # (Manual) Monocytes # (Manual) Eosinophils # (Manual) Fibrinogen dRVVT Confirm Interp Factor V Activity POC ABG pH POC ABG pCO2 POC ABG pO2 Sodium Potassium Chloride 108.6 H Carbon Dioxide 15 L BUN 125 H Creatinine 4.1 H Glucose 124 H POC Glucose 119 H Lactic Acid Calcium Phosphorus Magnesium Direct Bilirubin Troponin T C-Reactive Protein Total Protein Albumin Triglycerides Cholesterol LDL Cholesterol Direct HDL Cholesterol Urine WBC (Auto) Urine Creatinine Urine Total Protein Vancomycin Trough Rheumatoid Factor Complement C4 Crossmatch 09/19/16 09/19/16 09/19/16 11:25 17:53 23:36 WBC RBC Hgb Hct MCV MCH MCHC RDW Plt Count Lymph % (Auto) [place] % (Auto) Lymph # [place] # Seg Neutrophils % Seg Neuts % (Manual) Lymphocytes % (Manual) Monocytes % (Manual) Eosinophils % (Manual) Basophils % (Manual) Nucleated RBC % Seg Neutrophils # Seg Neutrophils # Man Lymphocytes # (Manual) Monocytes # (Manual) Eosinophils # (Manual) Fibrinogen dRVVT Confirm Interp Factor V Activity POC ABG pH POC ABG pCO2 POC ABG pO2 Sodium Potassium Chloride Carbon Dioxide BUN Creatinine Glucose POC Glucose 160 H 245 H 121 H Lactic Acid Calcium Phosphorus Magnesium Direct Bilirubin Troponin T C-Reactive Protein Total Protein Albumin Triglycerides Cholesterol LDL Cholesterol Direct HDL Cholesterol Urine WBC (Auto) Urine Creatinine Urine Total Protein Vancomycin Trough Rheumatoid Factor Complement C4 Crossmatch 09/20/16 09/20/16 09/20/16 04:10 04:10 04:10 WBC 17.0 H RBC 3.21 L Hgb 8.2 L Hct 25.5 L MCV MCH 26 L MCHC RDW 20.9 H Plt Count Lymph % (Auto) [place] % (Auto) Lymph # [place] # Seg Neutrophils % Seg Neuts % (Manual) Lymphocytes % (Manual) Monocytes % (Manual) Eosinophils % (Manual) Basophils % (Manual) Nucleated RBC % Seg Neutrophils # Seg Neutrophils # Man Lymphocytes # (Manual) Monocytes # (Manual) Eosinophils # (Manual) Fibrinogen dRVVT Confirm Interp Factor V Activity POC ABG pH POC ABG pCO2 POC ABG pO2 Sodium Potassium Chloride 111.0 H Carbon Dioxide 16 L BUN 129 H Creatinine 3.7 H Glucose 115 H POC Glucose Lactic Acid Calcium 8.2 L Phosphorus Magnesium Direct Bilirubin Troponin T C-Reactive Protein Total Protein Albumin Triglycerides 243 H Cholesterol LDL Cholesterol Direct HDL Cholesterol Urine WBC (Auto) Urine Creatinine Urine Total Protein Vancomycin Trough Rheumatoid Factor Complement C4 Crossmatch 09/20/16 09/20/16 09/20/16 05:40 11:52 16:50 WBC RBC Hgb Hct MCV MCH MCHC RDW Plt Count Lymph % (Auto) [place] % (Auto) Lymph # [place] # Seg Neutrophils % Seg Neuts % (Manual) Lymphocytes % (Manual) Monocytes % (Manual) Eosinophils % (Manual) Basophils % (Manual) Nucleated RBC % Seg Neutrophils # Seg Neutrophils # Man Lymphocytes # (Manual) Monocytes # (Manual) Eosinophils # (Manual) Fibrinogen dRVVT Confirm Interp Factor V Activity POC ABG pH POC ABG pCO2 POC ABG pO2 Sodium Potassium Chloride Carbon Dioxide BUN Creatinine Glucose POC Glucose 131 H 183 H 236 H Lactic Acid Calcium Phosphorus Magnesium Direct Bilirubin Troponin T C-Reactive Protein Total Protein Albumin Triglycerides Cholesterol LDL Cholesterol Direct HDL Cholesterol Urine WBC (Auto) Urine Creatinine Urine Total Protein Vancomycin Trough Rheumatoid Factor Complement C4 Crossmatch 09/20/16 09/21/16 09/21/16 23:51 03:30 04:44 WBC RBC Hgb Hct MCV MCH MCHC RDW Plt Count Lymph % (Auto) [place] % (Auto) Lymph # [place] # Seg Neutrophils % Seg Neuts % (Manual) Lymphocytes % (Manual) Monocytes % (Manual) Eosinophils % (Manual) Basophils % (Manual) Nucleated RBC % Seg Neutrophils # Seg Neutrophils # Man Lymphocytes # (Manual) Monocytes # (Manual) Eosinophils # (Manual) Fibrinogen dRVVT Confirm Interp Factor V Activity POC ABG pH POC ABG pCO2 POC ABG pO2 Sodium Potassium Chloride Carbon Dioxide BUN Creatinine Glucose POC Glucose 114 H 141 H Lactic Acid Calcium Phosphorus Magnesium 2.70 H Direct Bilirubin Troponin T C-Reactive Protein Total Protein Albumin Triglycerides Cholesterol LDL Cholesterol Direct HDL Cholesterol Urine WBC (Auto) Urine Creatinine Urine Total Protein Vancomycin Trough Rheumatoid Factor Complement C4 Crossmatch 09/21/16 09/21/16 09/21/16 07:45 07:45 10:01 WBC 13.8 H RBC 2.94 L Hgb 7.5 L Hct 23.5 L MCV MCH 26 L MCHC RDW 21.2 H Plt Count Lymph % (Auto) 6.9 L [place] % (Auto) 9.4 H Lymph # 0.9 L [place] # 1.3 H Seg Neutrophils % 83.2 H Seg Neuts % (Manual) Lymphocytes % (Manual) Monocytes % (Manual) Eosinophils % (Manual) Basophils % (Manual) Nucleated RBC % Seg Neutrophils # 11.5 H Seg Neutrophils # Man Lymphocytes # (Manual) Monocytes # (Manual) Eosinophils # (Manual) Fibrinogen dRVVT Confirm Interp Factor V Activity POC ABG pH 7.308 L POC ABG pCO2 31.9 L POC ABG pO2 148 H Sodium 147 H Potassium Chloride 114.2 H Carbon Dioxide 15 L BUN 120 H Creatinine 3.9 H Glucose 156 H POC Glucose Lactic Acid Calcium 8.2 L Phosphorus Magnesium Direct Bilirubin Troponin T C-Reactive Protein Total Protein Albumin Triglycerides Cholesterol LDL Cholesterol Direct HDL Cholesterol Urine WBC (Auto) Urine Creatinine Urine Total Protein Vancomycin Trough Rheumatoid Factor Complement C4 Crossmatch 09/21/16 09/21/16 09/21/16 12:00 12:03 13:00 WBC RBC Hgb Hct MCV MCH MCHC RDW Plt Count Lymph % (Auto) [place] % (Auto) Lymph # [place] # Seg Neutrophils % Seg Neuts % (Manual) Lymphocytes % (Manual) Monocytes % (Manual) Eosinophils % (Manual) Basophils % (Manual) Nucleated RBC % Seg Neutrophils # Seg Neutrophils # Man Lymphocytes # (Manual) Monocytes # (Manual) Eosinophils # (Manual) Fibrinogen dRVVT Confirm Interp Factor V Activity POC ABG pH POC ABG pCO2 POC ABG pO2 Sodium Potassium Chloride Carbon Dioxide BUN Creatinine Glucose POC Glucose 163 H Lactic Acid Calcium Phosphorus Magnesium Direct Bilirubin Troponin T C-Reactive Protein Total Protein Albumin Triglycerides Cholesterol LDL Cholesterol Direct HDL Cholesterol Urine WBC (Auto) Urine Creatinine 54.8 H Urine Total Protein Vancomycin Trough 2.3 L Rheumatoid Factor Complement C4 Crossmatch 09/21/16 09/21/1617 16:51 23:17 06:27 WBC RBC Hgb Hct MCV MCH MCHC RDW Plt Count Lymph % (Auto) [place] % (Auto) Lymph # [place] # Seg Neutrophils % Seg Neuts % (Manual) Lymphocytes % (Manual) Monocytes % (Manual) Eosinophils % (Manual) Basophils % (Manual) Nucleated RBC % Seg Neutrophils # Seg Neutrophils # Man Lymphocytes # (Manual) Monocytes # (Manual) Eosinophils # (Manual) Fibrinogen dRVVT Confirm Interp Factor V Activity POC ABG pH POC ABG pCO2 POC ABG pO2 Sodium Potassium Chloride Carbon Dioxide BUN Creatinine Glucose POC Glucose 206 H 114 H 115 H Lactic Acid Calcium Phosphorus Magnesium Direct Bilirubin Troponin T C-Reactive Protein Total Protein Albumin Triglycerides Cholesterol LDL Cholesterol Direct HDL Cholesterol Urine WBC (Auto) Urine Creatinine Urine Total Protein Vancomycin Trough Rheumatoid Factor Complement C4 Crossmatch 09/22/16 09/22/16 09/22/16 07:50 07:50 12:00 WBC 17.8 H RBC 3.04 L Hgb 8.0 L Hct 24.7 L MCV MCH 26 L MCHC RDW 21.6 H Plt Count Lymph % (Auto) [place] % (Auto) Lymph # [place] # Seg Neutrophils % Seg Neuts % (Manual) Lymphocytes % (Manual) Monocytes % (Manual) Eosinophils % (Manual) Basophils % (Manual) Nucleated RBC % Seg Neutrophils # Seg Neutrophils # Man Lymphocytes # (Manual) Monocytes # (Manual) Eosinophils # (Manual) Fibrinogen dRVVT Confirm Interp Factor V Activity POC ABG pH POC ABG pCO2 POC ABG pO2 Sodium 150 H Potassium Chloride 118.2 H Carbon Dioxide 14 L BUN 111 H Creatinine 3.7 H Glucose 157 H POC Glucose 183 H Lactic Acid Calcium Phosphorus Magnesium Direct Bilirubin Troponin T C-Reactive Protein Total Protein Albumin Triglycerides Cholesterol LDL Cholesterol Direct HDL Cholesterol Urine WBC (Auto) Urine Creatinine Urine Total Protein Vancomycin Trough Rheumatoid Factor Complement C4 Crossmatch 09/22/16 09/22/16 09/23/16 17:29 23:10 05:00 WBC 19.2 H RBC 3.13 L Hgb 8.0 L Hct 25.2 L MCV MCH 26 L MCHC RDW 22.1 H Plt Count Lymph % (Auto) [place] % (Auto) Lymph # [place] # Seg Neutrophils % Seg Neuts % (Manual) 92.0 H Lymphocytes % (Manual) 3.0 L Monocytes % (Manual) Eosinophils % (Manual) Basophils % (Manual) Nucleated RBC % Seg Neutrophils # Seg Neutrophils # Man 17.7 H Lymphocytes # (Manual) 0.6 L Monocytes # (Manual) Eosinophils # (Manual) Fibrinogen dRVVT Confirm Interp Factor V Activity POC ABG pH POC ABG pCO2 POC ABG pO2 Sodium Potassium Chloride Carbon Dioxide BUN Creatinine Glucose POC Glucose 197 H 169 H Lactic Acid Calcium Phosphorus Magnesium Direct Bilirubin Troponin T C-Reactive Protein Total Protein Albumin Triglycerides Cholesterol LDL Cholesterol Direct HDL Cholesterol Urine WBC (Auto) Urine Creatinine Urine Total Protein Vancomycin Trough Rheumatoid Factor Complement C4 Crossmatch 09/23/16 09/23/16 09/23/16 05:00 05:00 05:10 WBC RBC Hgb Hct MCV MCH MCHC RDW Plt Count Lymph % (Auto) [place] % (Auto) Lymph # [place] # Seg Neutrophils % Seg Neuts % (Manual) Lymphocytes % (Manual) Monocytes % (Manual) Eosinophils % (Manual) Basophils % (Manual) Nucleated RBC % Seg Neutrophils # Seg Neutrophils # Man Lymphocytes # (Manual) Monocytes # (Manual) Eosinophils # (Manual) Fibrinogen dRVVT Confirm Interp Factor V Activity POC ABG pH POC ABG pCO2 POC ABG pO2 Sodium 147 H Potassium 3.2 L Chloride 115.7 H Carbon Dioxide 13 L BUN 111 H Creatinine 3.8 H Glucose 194 H POC Glucose 188 H Lactic Acid Calcium 7.3 L D Phosphorus Magnesium Direct Bilirubin Troponin T C-Reactive Protein 3.20 H Total Protein Albumin Triglycerides Cholesterol LDL Cholesterol Direct HDL Cholesterol Urine WBC (Auto) Urine Creatinine Urine Total Protein Vancomycin Trough Rheumatoid Factor Complement C4 Crossmatch 09/23/16 09/23/16 09/23/16 11:37 12:29 18:01 WBC RBC Hgb Hct MCV MCH MCHC RDW Plt Count Lymph % (Auto) [place] % (Auto) Lymph # [place] # Seg Neutrophils % Seg Neuts % (Manual) Lymphocytes % (Manual) Monocytes % (Manual) Eosinophils % (Manual) Basophils % (Manual) Nucleated RBC % Seg Neutrophils # Seg Neutrophils # Man Lymphocytes # (Manual) Monocytes # (Manual) Eosinophils # (Manual) Fibrinogen dRVVT Confirm Interp Factor V Activity POC ABG pH POC ABG pCO2 18.9 L POC ABG pO2 143 H Sodium Potassium Chloride Carbon Dioxide BUN Creatinine Glucose POC Glucose 153 H 108 H Lactic Acid Calcium Phosphorus Magnesium Direct Bilirubin Troponin T C-Reactive Protein Total Protein Albumin Triglycerides Cholesterol LDL Cholesterol Direct HDL Cholesterol Urine WBC (Auto) Urine Creatinine Urine Total Protein Vancomycin Trough Rheumatoid Factor Complement C4 Crossmatch 09/23/16 09/23/16 09/24/16 21:19 23:43 05:16 WBC RBC Hgb Hct MCV MCH MCHC RDW Plt Count Lymph % (Auto) [place] % (Auto) Lymph # [place] # Seg Neutrophils % Seg Neuts % (Manual) Lymphocytes % (Manual) Monocytes % (Manual) Eosinophils % (Manual) Basophils % (Manual) Nucleated RBC % Seg Neutrophils # Seg Neutrophils # Man Lymphocytes # (Manual) Monocytes # (Manual) Eosinophils # (Manual) Fibrinogen dRVVT Confirm Interp Factor V Activity POC ABG pH POC ABG pCO2 17.3 L POC ABG pO2 112 H Sodium Potassium Chloride Carbon Dioxide BUN Creatinine Glucose POC Glucose 143 H 164 H Lactic Acid Calcium Phosphorus Magnesium Direct Bilirubin Troponin T C-Reactive Protein Total Protein Albumin Triglycerides Cholesterol LDL Cholesterol Direct HDL Cholesterol Urine WBC (Auto) Urine Creatinine Urine Total Protein Vancomycin Trough Rheumatoid Factor Complement C4 Crossmatch 09/24/16 09/24/16 09/24/16 05:21 11:58 17:06 WBC RBC Hgb Hct MCV MCH MCHC RDW Plt Count Lymph % (Auto) [place] % (Auto) Lymph # [place] # Seg Neutrophils % Seg Neuts % (Manual) Lymphocytes % (Manual) Monocytes % (Manual) Eosinophils % (Manual) Basophils % (Manual) Nucleated RBC % Seg Neutrophils # Seg Neutrophils # Man Lymphocytes # (Manual) Monocytes # (Manual) Eosinophils # (Manual) Fibrinogen dRVVT Confirm Interp Factor V Activity POC ABG pH POC ABG pCO2 POC ABG pO2 Sodium Potassium Chloride Carbon Dioxide 10 L BUN 103 H Creatinine 4.3 H Glucose 163 H POC Glucose 173 H 167 H Lactic Acid Calcium 6.5 L Phosphorus Magnesium Direct Bilirubin Troponin T C-Reactive Protein Total Protein Albumin Triglycerides Cholesterol LDL Cholesterol Direct HDL Cholesterol Urine WBC (Auto) Urine Creatinine Urine Total Protein Vancomycin Trough Rheumatoid Factor Complement C4 Crossmatch 09/24/16 09/24/16 09/24/16 20:15 21:02 23:48 WBC RBC Hgb Hct MCV MCH MCHC RDW Plt Count Lymph % (Auto) [place] % (Auto) Lymph # [place] # Seg Neutrophils % Seg Neuts % (Manual) Lymphocytes % (Manual) Monocytes % (Manual) Eosinophils % (Manual) Basophils % (Manual) Nucleated RBC % Seg Neutrophils # Seg Neutrophils # Man Lymphocytes # (Manual) Monocytes # (Manual) Eosinophils # (Manual) Fibrinogen dRVVT Confirm Interp Factor V Activity POC ABG pH 7.288 L POC ABG pCO2 30.2 L 21.5 L POC ABG pO2 32 L 39 L Sodium Potassium Chloride Carbon Dioxide BUN Creatinine Glucose POC Glucose 109 H Lactic Acid Calcium Phosphorus Magnesium Direct Bilirubin Troponin T C-Reactive Protein Total Protein Albumin Triglycerides Cholesterol LDL Cholesterol Direct HDL Cholesterol Urine WBC (Auto) Urine Creatinine Urine Total Protein Vancomycin Trough Rheumatoid Factor Complement C4 Crossmatch 09/25/16 09/25/16 09/25/16 04:20 04:20 04:20 WBC RBC 2.58 L Hgb 7.0 L Hct 21.0 L MCV MCH 27 L MCHC RDW 23.8 H Plt Count Lymph % (Auto) [place] % (Auto) Lymph # [place] # Seg Neutrophils % Seg Neuts % (Manual) Lymphocytes % (Manual) 12.0 L Monocytes % (Manual) Eosinophils % (Manual) 7.0 H Basophils % (Manual) 2.0 H Nucleated RBC % Seg Neutrophils # Seg Neutrophils # Man Lymphocytes # (Manual) 0.9 L Monocytes # (Manual) Eosinophils # (Manual) 0.5 H Fibrinogen dRVVT Confirm Interp Factor V Activity POC ABG pH POC ABG pCO2 POC ABG pO2 Sodium Potassium Chloride Carbon Dioxide 15 L BUN 72 H Creatinine 3.8 H Glucose POC Glucose Lactic Acid Calcium 6.0 L Phosphorus 4.60 H Magnesium 1.60 L Direct Bilirubin Troponin T C-Reactive Protein Total Protein Albumin Triglycerides Cholesterol LDL Cholesterol Direct HDL Cholesterol Urine WBC (Auto) Urine Creatinine Urine Total Protein Vancomycin Trough Rheumatoid Factor Complement C4 Crossmatch 09/25/16 09/25/16 09/25/16 04:57 08:02 10:30 WBC RBC Hgb Hct MCV MCH MCHC RDW Plt Count Lymph % (Auto) [place] % (Auto) Lymph # [place] # Seg Neutrophils % Seg Neuts % (Manual) Lymphocytes % (Manual) Monocytes % (Manual) Eosinophils % (Manual) Basophils % (Manual) Nucleated RBC % Seg Neutrophils # Seg Neutrophils # Man Lymphocytes # (Manual) Monocytes # (Manual) Eosinophils # (Manual) Fibrinogen dRVVT Confirm Interp Factor V Activity POC ABG pH POC ABG pCO2 24.7 L POC ABG pO2 152 H Sodium Potassium Chloride Carbon Dioxide BUN Creatinine Glucose POC Glucose 113 H Lactic Acid Calcium Phosphorus Magnesium Direct Bilirubin Troponin T C-Reactive Protein Total Protein Albumin Triglycerides Cholesterol LDL Cholesterol Direct HDL Cholesterol Urine WBC (Auto) Urine Creatinine Urine Total Protein Vancomycin Trough Rheumatoid Factor Complement C4 Crossmatch See Detail 09/25/16 09/25/16 09/25/16 12:05 17:44 23:47 WBC RBC Hgb Hct MCV MCH MCHC RDW Plt Count Lymph % (Auto) [place] % (Auto) Lymph # [place] # Seg Neutrophils % Seg Neuts % (Manual) Lymphocytes % (Manual) Monocytes % (Manual) Eosinophils % (Manual) Basophils % (Manual) Nucleated RBC % Seg Neutrophils # Seg Neutrophils # Man Lymphocytes # (Manual) Monocytes # (Manual) Eosinophils # (Manual) Fibrinogen dRVVT Confirm Interp Factor V Activity POC ABG pH POC ABG pCO2 POC ABG pO2 Sodium Potassium Chloride Carbon Dioxide BUN Creatinine Glucose POC Glucose 117 H 119 H 150 H Lactic Acid Calcium Phosphorus Magnesium Direct Bilirubin Troponin T C-Reactive Protein Total Protein Albumin Triglycerides Cholesterol LDL Cholesterol Direct HDL Cholesterol Urine WBC (Auto) Urine Creatinine Urine Total Protein Vancomycin Trough Rheumatoid Factor Complement C4 Crossmatch 09/26/16 09/26/16 09/26/16 04:25 04:25 04:25 WBC RBC 2.65 L Hgb 7.4 L Hct 21.6 L MCV MCH MCHC RDW 22.5 H Plt Count Lymph % (Auto) [place] % (Auto) Lymph # [place] # Seg Neutrophils % Seg Neuts % (Manual) Lymphocytes % (Manual) 6.0 L Monocytes % (Manual) Eosinophils % (Manual) 11.0 H Basophils % (Manual) Nucleated RBC % Seg Neutrophils # Seg Neutrophils # Man Lymphocytes # (Manual) 0.4 L Monocytes # (Manual) Eosinophils # (Manual) 0.6 H Fibrinogen dRVVT Confirm Interp Factor V Activity POC ABG pH POC ABG pCO2 POC ABG pO2 Sodium Potassium Chloride 97.0 L Carbon Dioxide 19 L BUN 43 H Creatinine 2.6 H Glucose 130 H POC Glucose Lactic Acid 4.40 H* Calcium 6.7 L Phosphorus Magnesium Direct Bilirubin Troponin T C-Reactive Protein Total Protein Albumin Triglycerides Cholesterol LDL Cholesterol Direct HDL Cholesterol Urine WBC (Auto) Urine Creatinine Urine Total Protein Vancomycin Trough Rheumatoid Factor Complement C4 Crossmatch 09/26/16 09/26/16 09/26/16 05:20 11:44 12:12 WBC RBC Hgb Hct MCV MCH MCHC RDW Plt Count Lymph % (Auto) [place] % (Auto) Lymph # [place] # Seg Neutrophils % Seg Neuts % (Manual) Lymphocytes % (Manual) Monocytes % (Manual) Eosinophils % (Manual) Basophils % (Manual) Nucleated RBC % Seg Neutrophils # Seg Neutrophils # Man Lymphocytes # (Manual) Monocytes # (Manual) Eosinophils # (Manual) Fibrinogen dRVVT Confirm Interp Factor V Activity POC ABG pH POC ABG pCO2 27.0 L POC ABG pO2 69 L Sodium Potassium Chloride Carbon Dioxide BUN Creatinine Glucose POC Glucose 121 H 128 H Lactic Acid Calcium Phosphorus Magnesium Direct Bilirubin Troponin T C-Reactive Protein Total Protein Albumin Triglycerides Cholesterol LDL Cholesterol Direct HDL Cholesterol Urine WBC (Auto) Urine Creatinine Urine Total Protein Vancomycin Trough Rheumatoid Factor Complement C4 Crossmatch 09/26/16 09/26/16 09/27/16 18:31 23:40 08:20 WBC RBC Hgb Hct MCV MCH MCHC RDW Plt Count Lymph % (Auto) [place] % (Auto) Lymph # [place] # Seg Neutrophils % Seg Neuts % (Manual) Lymphocytes % (Manual) Monocytes % (Manual) Eosinophils % (Manual) Basophils % (Manual) Nucleated RBC % Seg Neutrophils # Seg Neutrophils # Man Lymphocytes # (Manual) Monocytes # (Manual) Eosinophils # (Manual) Fibrinogen dRVVT Confirm Interp Factor V Activity POC ABG pH POC ABG pCO2 POC ABG pO2 Sodium Potassium Chloride Carbon Dioxide BUN Creatinine Glucose POC Glucose 120 H 133 H Lactic Acid 4.10 H* Calcium Phosphorus Magnesium Direct Bilirubin Troponin T C-Reactive Protein Total Protein Albumin Triglycerides Cholesterol LDL Cholesterol Direct HDL Cholesterol Urine WBC (Auto) Urine Creatinine Urine Total Protein Vancomycin Trough Rheumatoid Factor Complement C4 Crossmatch 09/27/16 09/27/16 09/27/16 11:23 15:00 18:15 WBC RBC Hgb Hct MCV MCH MCHC RDW Plt Count Lymph % (Auto) [place] % (Auto) Lymph # [place] # Seg Neutrophils % Seg Neuts % (Manual) Lymphocytes % (Manual) Monocytes % (Manual) Eosinophils % (Manual) Basophils % (Manual) Nucleated RBC % Seg Neutrophils # Seg Neutrophils # Man Lymphocytes # (Manual) Monocytes # (Manual) Eosinophils # (Manual) Fibrinogen dRVVT Confirm Interp Factor V Activity POC ABG pH 7.459 H POC ABG pCO2 27.1 L POC ABG pO2 140 H Sodium Potassium Chloride Carbon Dioxide BUN Creatinine Glucose POC Glucose 114 H 127 H Lactic Acid Calcium Phosphorus Magnesium Direct Bilirubin Troponin T C-Reactive Protein Total Protein Albumin Triglycerides Cholesterol LDL Cholesterol Direct HDL Cholesterol Urine WBC (Auto) Urine Creatinine Urine Total Protein Vancomycin Trough Rheumatoid Factor Complement C4 Crossmatch 09/27/16 09/27/16 09/28/16 Unknown Unknown 03:45 WBC RBC 2.49 L Hgb 6.8 L Hct 20.7 L MCV MCH 27 L MCHC RDW 22.1 H Plt Count Lymph % (Auto) [place] % (Auto) Lymph # [place] # Seg Neutrophils % Seg Neuts % (Manual) 32.0 L Lymphocytes % (Manual) 12.0 L Monocytes % (Manual) 11.0 H Eosinophils % (Manual) 10.0 H Basophils % (Manual) Nucleated RBC % Seg Neutrophils # Seg Neutrophils # Man Lymphocytes # (Manual) 1.0 L Monocytes # (Manual) 0.9 H Eosinophils # (Manual) 0.8 H Fibrinogen dRVVT Confirm Interp Factor V Activity POC ABG pH POC ABG pCO2 POC ABG pO2 Sodium 135 L 135 L Potassium 3.5 L Chloride 93.6 L 94.4 L Carbon Dioxide 17 L 21 L BUN 45 H 28 H Creatinine 3.3 H 2.5 H Glucose 106 H POC Glucose Lactic Acid Calcium 7.3 L 7.1 L Phosphorus Magnesium Direct Bilirubin Troponin T C-Reactive Protein Total Protein Albumin Triglycerides Cholesterol LDL Cholesterol Direct HDL Cholesterol Urine WBC (Auto) Urine Creatinine Urine Total Protein Vancomycin Trough Rheumatoid Factor Complement C4 Crossmatch 09/28/16 09/28/16 09/28/16 03:45 07:25 11:58 WBC 13.3 H RBC 3.01 L Hgb 8.4 L Hct 25.0 L MCV MCH MCHC RDW 20.5 H Plt Count 128 L Lymph % (Auto) [place] % (Auto) Lymph # [place] # Seg Neutrophils % Seg Neuts % (Manual) Lymphocytes % (Manual) 7.0 L Monocytes % (Manual) Eosinophils % (Manual) 6.0 H Basophils % (Manual) Nucleated RBC % Seg Neutrophils # Seg Neutrophils # Man Lymphocytes # (Manual) 0.9 L Monocytes # (Manual) Eosinophils # (Manual) 0.8 H Fibrinogen dRVVT Confirm Interp Factor V Activity POC ABG pH POC ABG pCO2 POC ABG pO2 Sodium Potassium Chloride Carbon Dioxide BUN Creatinine Glucose POC Glucose 121 H Lactic Acid 4.50 H* Calcium Phosphorus Magnesium Direct Bilirubin Troponin T C-Reactive Protein Total Protein Albumin Triglycerides Cholesterol LDL Cholesterol Direct HDL Cholesterol Urine WBC (Auto) Urine Creatinine Urine Total Protein Vancomycin Trough Rheumatoid Factor Complement C4 Crossmatch 09/29/16 09/29/16 09/29/16 06:45 06:45 06:45 WBC 14.9 H RBC 2.74 L Hgb 7.6 L Hct 23.2 L MCV MCH MCHC RDW 20.5 H Plt Count 81 L Lymph % (Auto) [place] % (Auto) Lymph # [place] # Seg Neutrophils % Seg Neuts % (Manual) 81.0 H Lymphocytes % (Manual) 4.0 L Monocytes % (Manual) Eosinophils % (Manual) Basophils % (Manual) Nucleated RBC % Seg Neutrophils # Seg Neutrophils # Man 12.1 H Lymphocytes # (Manual) 0.6 L Monocytes # (Manual) Eosinophils # (Manual) Fibrinogen dRVVT Confirm Interp Factor V Activity POC ABG pH POC ABG pCO2 POC ABG pO2 Sodium 133 L Potassium 3.4 L Chloride 92.5 L Carbon Dioxide 21 L BUN 33 H Creatinine 3.0 H Glucose POC Glucose Lactic Acid Calcium 6.6 L Phosphorus Magnesium 1.40 L Direct Bilirubin 0.9 H Troponin T C-Reactive Protein Total Protein 4.3 L Albumin 1.3 L Triglycerides Cholesterol LDL Cholesterol Direct HDL Cholesterol Urine WBC (Auto) Urine Creatinine Urine Total Protein Vancomycin Trough Rheumatoid Factor Complement C4 Crossmatch 09/29/16 09/29/16 09/30/16 17:52 20:12 00:07 WBC RBC Hgb Hct MCV MCH MCHC RDW Plt Count Lymph % (Auto) [place] % (Auto) Lymph # [place] # Seg Neutrophils % Seg Neuts % (Manual) Lymphocytes % (Manual) Monocytes % (Manual) Eosinophils % (Manual) Basophils % (Manual) Nucleated RBC % Seg Neutrophils # Seg Neutrophils # Man Lymphocytes # (Manual) Monocytes # (Manual) Eosinophils # (Manual) Fibrinogen dRVVT Confirm Interp Factor V Activity POC ABG pH POC ABG pCO2 POC ABG pO2 Sodium Potassium Chloride Carbon Dioxide BUN Creatinine Glucose POC Glucose 50 L 51 L Lactic Acid Calcium Phosphorus Magnesium Direct Bilirubin Troponin T 0.204 H* C-Reactive Protein Total Protein Albumin Triglycerides Cholesterol 31 L LDL Cholesterol Direct 4 L HDL Cholesterol 3 L Urine WBC (Auto) Urine Creatinine Urine Total Protein Vancomycin Trough Rheumatoid Factor Complement C4 Crossmatch 09/30/16 09/30/16 09/30/16 01:30 05:15 06:10 WBC RBC Hgb Hct MCV MCH MCHC RDW Plt Count Lymph % (Auto) [place] % (Auto) Lymph # [place] # Seg Neutrophils % Seg Neuts % (Manual) Lymphocytes % (Manual) Monocytes % (Manual) Eosinophils % (Manual) Basophils % (Manual) Nucleated RBC % Seg Neutrophils # Seg Neutrophils # Man Lymphocytes # (Manual) Monocytes # (Manual) Eosinophils # (Manual) Fibrinogen dRVVT Confirm Interp Factor V Activity POC ABG pH POC ABG pCO2 POC ABG pO2 Sodium 133 L Potassium 3.2 L Chloride 93.2 L Carbon Dioxide 19 L BUN 36 H Creatinine 3.2 H Glucose 104 H POC Glucose 167 H 146 H Lactic Acid Calcium 6.4 L Phosphorus Magnesium 1.60 L Direct Bilirubin Troponin T C-Reactive Protein Total Protein Albumin Triglycerides Cholesterol LDL Cholesterol Direct HDL Cholesterol Urine WBC (Auto) Urine Creatinine Urine Total Protein Vancomycin Trough Rheumatoid Factor Complement C4 Crossmatch 09/30/16 09/30/16 09/30/16 11:26 13:39 18:38 WBC RBC Hgb Hct MCV MCH MCHC RDW Plt Count Lymph % (Auto) [place] % (Auto) Lymph # [place] # Seg Neutrophils % Seg Neuts % (Manual) Lymphocytes % (Manual) Monocytes % (Manual) Eosinophils % (Manual) Basophils % (Manual) Nucleated RBC % Seg Neutrophils # Seg Neutrophils # Man Lymphocytes # (Manual) Monocytes # (Manual) Eosinophils # (Manual) Fibrinogen dRVVT Confirm Interp Factor V Activity POC ABG pH 7.479 H POC ABG pCO2 29.8 L POC ABG pO2 117 H Sodium Potassium Chloride Carbon Dioxide BUN Creatinine Glucose POC Glucose 140 H 122 H Lactic Acid Calcium Phosphorus Magnesium Direct Bilirubin Troponin T C-Reactive Protein Total Protein Albumin Triglycerides Cholesterol LDL Cholesterol Direct HDL Cholesterol Urine WBC (Auto) Urine Creatinine Urine Total Protein Vancomycin Trough Rheumatoid Factor Complement C4 Crossmatch 10/01/16 10/01/16 10/01/16 06:00 06:00 12:37 WBC 12.6 H RBC 2.75 L Hgb 7.3 L Hct 23.3 L MCV MCH 27 L MCHC RDW 20.6 H Plt Count 72 L Lymph % (Auto) [place] % (Auto) Lymph # [place] # Seg Neutrophils % Seg Neuts % (Manual) 31.0 L Lymphocytes % (Manual) 8.0 L Monocytes % (Manual) Eosinophils % (Manual) Basophils % (Manual) Nucleated RBC % 3.0 H Seg Neutrophils # Seg Neutrophils # Man Lymphocytes # (Manual) 1.0 L Monocytes # (Manual) Eosinophils # (Manual) Fibrinogen dRVVT Confirm Interp Factor V Activity POC ABG pH POC ABG pCO2 POC ABG pO2 Sodium 127 L Potassium Chloride 86.8 L Carbon Dioxide 20 L BUN 42 H Creatinine 3.5 H Glucose POC Glucose 65 L Lactic Acid Calcium 7.0 L Phosphorus Magnesium Direct Bilirubin Troponin T C-Reactive Protein Total Protein Albumin Triglycerides Cholesterol LDL Cholesterol Direct HDL Cholesterol Urine WBC (Auto) Urine Creatinine Urine Total Protein Vancomycin Trough Rheumatoid Factor Complement C4 Crossmatch 10/01/16 10/01/16 10/02/16 17:39 23:32 00:59 WBC RBC Hgb Hct MCV MCH MCHC RDW Plt Count Lymph % (Auto) [place] % (Auto) Lymph # [place] # Seg Neutrophils % Seg Neuts % (Manual) Lymphocytes % (Manual) Monocytes % (Manual) Eosinophils % (Manual) Basophils % (Manual) Nucleated RBC % Seg Neutrophils # Seg Neutrophils # Man Lymphocytes # (Manual) Monocytes # (Manual) Eosinophils # (Manual) Fibrinogen dRVVT Confirm Interp Factor V Activity POC ABG pH POC ABG pCO2 POC ABG pO2 Sodium Potassium Chloride Carbon Dioxide BUN Creatinine Glucose POC Glucose 107 H 52 L 145 H Lactic Acid Calcium Phosphorus Magnesium Direct Bilirubin Troponin T C-Reactive Protein Total Protein Albumin Triglycerides Cholesterol LDL Cholesterol Direct HDL Cholesterol Urine WBC (Auto) Urine Creatinine Urine Total Protein Vancomycin Trough Rheumatoid Factor Complement C4 Crossmatch 10/02/16 10/02/16 10/02/16 10:30 10:50 10:50 WBC 14.7 H RBC 2.76 L Hgb 7.4 L Hct 23.6 L MCV MCH 27 L MCHC RDW 20.2 H Plt Count 79 L Lymph % (Auto) [place] % (Auto) Lymph # [place] # Seg Neutrophils % Seg Neuts % (Manual) 86.0 H Lymphocytes % (Manual) 6.0 L Monocytes % (Manual) Eosinophils % (Manual) Basophils % (Manual) Nucleated RBC % Seg Neutrophils # Seg Neutrophils # Man 12.6 H Lymphocytes # (Manual) 0.9 L Monocytes # (Manual) Eosinophils # (Manual) Fibrinogen dRVVT Confirm Interp Factor V Activity POC ABG pH 7.486 H POC ABG pCO2 30.1 L POC ABG pO2 108 H Sodium 131 L Potassium 3.4 L Chloride 89.9 L Carbon Dioxide BUN 26 H Creatinine 2.6 H Glucose POC Glucose Lactic Acid Calcium 7.0 L Phosphorus Magnesium Direct Bilirubin Troponin T C-Reactive Protein Total Protein Albumin Triglycerides Cholesterol LDL Cholesterol Direct HDL Cholesterol Urine WBC (Auto) Urine Creatinine Urine Total Protein Vancomycin Trough Rheumatoid Factor Complement C4 Crossmatch 10/02/16 10/03/16 10/03/16 23:45 00:45 05:10 WBC 12.9 H RBC 2.77 L Hgb 7.6 L Hct 23.7 L MCV MCH 27 L MCHC RDW 19.7 H Plt Count 89 L Lymph % (Auto) [place] % (Auto) Lymph # [place] # Seg Neutrophils % Seg Neuts % (Manual) Lymphocytes % (Manual) 8.0 L Monocytes % (Manual) Eosinophils % (Manual) Basophils % (Manual) Nucleated RBC % Seg Neutrophils # 11.9 H Seg Neutrophils # Man Lymphocytes # (Manual) 1.0 L Monocytes # (Manual) Eosinophils # (Manual) Fibrinogen dRVVT Confirm Interp Factor V Activity POC ABG pH POC ABG pCO2 POC ABG pO2 Sodium Potassium Chloride Carbon Dioxide BUN Creatinine Glucose POC Glucose 55 L 199 H Lactic Acid Calcium Phosphorus Magnesium Direct Bilirubin Troponin T C-Reactive Protein Total Protein Albumin Triglycerides Cholesterol LDL Cholesterol Direct HDL Cholesterol Urine WBC (Auto) Urine Creatinine Urine Total Protein Vancomycin Trough Rheumatoid Factor Complement C4 Crossmatch 10/03/16 10/03/16 10/03/16 05:10 12:14 13:18 WBC RBC Hgb Hct MCV MCH MCHC RDW Plt Count Lymph % (Auto) [place] % (Auto) Lymph # [place] # Seg Neutrophils % Seg Neuts % (Manual) Lymphocytes % (Manual) Monocytes % (Manual) Eosinophils % (Manual) Basophils % (Manual) Nucleated RBC % Seg Neutrophils # Seg Neutrophils # Man Lymphocytes # (Manual) Monocytes # (Manual) Eosinophils # (Manual) Fibrinogen dRVVT Confirm Interp Factor V Activity POC ABG pH POC ABG pCO2 POC ABG pO2 Sodium 129 L Potassium 3.3 L Chloride 88.8 L Carbon Dioxide 20 L BUN 29 H Creatinine 2.8 H Glucose POC Glucose 68 L 127 H Lactic Acid Calcium 7.2 L Phosphorus Magnesium Direct Bilirubin Troponin T C-Reactive Protein Total Protein Albumin Triglycerides Cholesterol LDL Cholesterol Direct HDL Cholesterol Urine WBC (Auto) Urine Creatinine Urine Total Protein Vancomycin Trough Rheumatoid Factor Complement C4 Crossmatch 10/03/16 10/03/16 10/03/16 14:42 18:21 19:09 WBC RBC Hgb Hct MCV MCH MCHC RDW Plt Count Lymph % (Auto) Island % (Auto) Lymph # Island # Seg Neutrophils % Seg Neuts % (Manual) Lymphocytes % (Manual) Monocytes % (Manual) Eosinophils % (Manual) Basophils % (Manual) Nucleated RBC % Seg Neutrophils # Seg Neutrophils # Man Lymphocytes # (Manual) Monocytes # (Manual) Eosinophils # (Manual) Fibrinogen dRVVT Confirm Interp Factor V Activity POC ABG pH 7.499 H POC ABG pCO2 28.4 L POC ABG pO2 44 L Sodium Potassium Chloride Carbon Dioxide BUN Creatinine Glucose POC Glucose 64 L 205 H Lactic Acid Calcium Phosphorus Magnesium Direct Bilirubin Troponin T C-Reactive Protein Total Protein Albumin Triglycerides Cholesterol LDL Cholesterol Direct HDL Cholesterol Urine WBC (Auto) Urine Creatinine Urine Total Protein Vancomycin Trough Rheumatoid Factor Complement C4 Crossmatch 10/03/16 10/04/16 10/04/16 23:33 04:18 06:30 WBC RBC 2.54 L Hgb 7.1 L Hct 21.7 L MCV MCH MCHC RDW 19.5 H Plt Count 76 L Lymph % (Auto) Island % (Auto) Lymph # [place] # Seg Neutrophils % Seg Neuts % (Manual) 88.0 H Lymphocytes % (Manual) 6.0 L Monocytes % (Manual) Eosinophils % (Manual) Basophils % (Manual) Nucleated RBC % Seg Neutrophils # Seg Neutrophils # Man 8.8 H Lymphocytes # (Manual) 0.6 L Monocytes # (Manual) Eosinophils # (Manual) Fibrinogen dRVVT Confirm Interp Factor V Activity POC ABG pH 7.461 H POC ABG pCO2 33.6 L POC ABG pO2 211 H Sodium Potassium Chloride Carbon Dioxide BUN Creatinine Glucose POC Glucose 136 H Lactic Acid Calcium Phosphorus Magnesium Direct Bilirubin Troponin T C-Reactive Protein Total Protein Albumin Triglycerides Cholesterol LDL Cholesterol Direct HDL Cholesterol Urine WBC (Auto) Urine Creatinine Urine Total Protein Vancomycin Trough Rheumatoid Factor Complement C4 Crossmatch 10/04/16 10/04/16 10/04/16 06:30 11:45 17:54 WBC RBC Hgb Hct MCV MCH MCHC RDW Plt Count Lymph % (Auto) Island % (Auto) Lymph # [place] # Seg Neutrophils % Seg Neuts % (Manual) Lymphocytes % (Manual) Monocytes % (Manual) Eosinophils % (Manual) Basophils % (Manual) Nucleated RBC % Seg Neutrophils # Seg Neutrophils # Man Lymphocytes # (Manual) Monocytes # (Manual) Eosinophils # (Manual) Fibrinogen dRVVT Confirm Interp Factor V Activity POC ABG pH POC ABG pCO2 POC ABG pO2 Sodium 128 L Potassium Chloride 87.4 L Carbon Dioxide 20 L BUN 34 H Creatinine 2.9 H Glucose 127 H POC Glucose 158 H 160 H Lactic Acid Calcium 7.4 L Phosphorus Magnesium Direct Bilirubin Troponin T C-Reactive Protein Total Protein Albumin Triglycerides Cholesterol LDL Cholesterol Direct HDL Cholesterol Urine WBC (Auto) Urine Creatinine Urine Total Protein Vancomycin Trough Rheumatoid Factor Complement C4 Crossmatch 10/04/16 10/05/16 10/05/16 23:25 04:30 05:00 WBC RBC 2.64 L Hgb 7.5 L Hct 22.6 L MCV MCH MCHC RDW 19.3 H Plt Count 80 L Lymph % (Auto) Island % (Auto) Lymph # [place] # Seg Neutrophils % Seg Neuts % (Manual) Lymphocytes % (Manual) 12.0 L Monocytes % (Manual) Eosinophils % (Manual) Basophils % (Manual) Nucleated RBC % Seg Neutrophils # Seg Neutrophils # Man Lymphocytes # (Manual) Monocytes # (Manual) Eosinophils # (Manual) Fibrinogen dRVVT Confirm Interp Factor V Activity POC ABG pH 7.475 H POC ABG pCO2 33.3 L POC ABG pO2 140 H Sodium Potassium Chloride Carbon Dioxide BUN Creatinine Glucose POC Glucose 141 H Lactic Acid Calcium Phosphorus Magnesium Direct Bilirubin Troponin T C-Reactive Protein Total Protein Albumin Triglycerides Cholesterol LDL Cholesterol Direct HDL Cholesterol Urine WBC (Auto) Urine Creatinine Urine Total Protein Vancomycin Trough Rheumatoid Factor Complement C4 Crossmatch 10/05/16 10/05/16 10/05/16 05:00 05:09 12:58 WBC RBC Hgb Hct MCV MCH MCHC RDW Plt Count Lymph % (Auto) Island % (Auto) Lymph # [place] # Seg Neutrophils % Seg Neuts % (Manual) Lymphocytes % (Manual) Monocytes % (Manual) Eosinophils % (Manual) Basophils % (Manual) Nucleated RBC % Seg Neutrophils # Seg Neutrophils # Man Lymphocytes # (Manual) Monocytes # (Manual) Eosinophils # (Manual) Fibrinogen dRVVT Confirm Interp Factor V Activity POC ABG pH POC ABG pCO2 POC ABG pO2 Sodium 131 L Potassium Chloride 94.0 L Carbon Dioxide 20 L BUN 22 H Creatinine 2.0 H Glucose 123 H POC Glucose 166 H 179 H Lactic Acid Calcium 7.7 L Phosphorus 2.20 L D Magnesium Direct Bilirubin Troponin T C-Reactive Protein Total Protein Albumin Triglycerides Cholesterol LDL Cholesterol Direct HDL Cholesterol Urine WBC (Auto) Urine Creatinine Urine Total Protein Vancomycin Trough Rheumatoid Factor Complement C4 Crossmatch 10/05/16 10/05/16 10/05/16 15:50 18:53 23:12 WBC RBC Hgb Hct MCV MCH MCHC RDW Plt Count Lymph % (Auto) Island % (Auto) Lymph # [place] # Seg Neutrophils % Seg Neuts % (Manual) Lymphocytes % (Manual) Monocytes % (Manual) Eosinophils % (Manual) Basophils % (Manual) Nucleated RBC % Seg Neutrophils # Seg Neutrophils # Man Lymphocytes # (Manual) Monocytes # (Manual) Eosinophils # (Manual) Fibrinogen dRVVT Confirm Interp Factor V Activity POC ABG pH POC ABG pCO2 POC ABG pO2 Sodium Potassium Chloride Carbon Dioxide BUN Creatinine Glucose POC Glucose 150 H 164 H Lactic Acid Calcium Phosphorus Magnesium Direct Bilirubin Troponin T C-Reactive Protein Total Protein Albumin Triglycerides Cholesterol LDL Cholesterol Direct HDL Cholesterol Urine WBC (Auto) Urine Creatinine Urine Total Protein Vancomycin Trough Rheumatoid Factor Complement C4 Crossmatch See Detail 10/06/16 10/06/16 10/06/16 03:50 03:50 04:53 WBC RBC 3.00 L Hgb 8.6 L Hct 25.8 L MCV MCH MCHC RDW 17.9 H Plt Count 65 L Lymph % (Auto) Island % (Auto) Lymph # [place] # Seg Neutrophils % Seg Neuts % (Manual) 30.0 L Lymphocytes % (Manual) 5.0 L Monocytes % (Manual) Eosinophils % (Manual) Basophils % (Manual) Nucleated RBC % Seg Neutrophils # Seg Neutrophils # Man Lymphocytes # (Manual) 0.4 L Monocytes # (Manual) Eosinophils # (Manual) Fibrinogen dRVVT Confirm Interp Factor V Activity POC ABG pH 7.310 L POC ABG pCO2 49.0 H POC ABG pO2 Sodium 133 L Potassium Chloride 95.9 L Carbon Dioxide BUN 26 H Creatinine 2.0 H Glucose 116 H POC Glucose Lactic Acid Calcium 7.8 L Phosphorus Magnesium Direct Bilirubin Troponin T C-Reactive Protein Total Protein Albumin Triglycerides Cholesterol LDL Cholesterol Direct HDL Cholesterol Urine WBC (Auto) Urine Creatinine Urine Total Protein Vancomycin Trough Rheumatoid Factor Complement C4 Crossmatch 10/06/16 05:23 WBC RBC Hgb Hct MCV MCH MCHC RDW Plt Count Lymph % (Auto) Island % (Auto) Lymph # [place] # Seg Neutrophils % Seg Neuts % (Manual) Lymphocytes % (Manual) Monocytes % (Manual) Eosinophils % (Manual) Basophils % (Manual) Nucleated RBC % Seg Neutrophils # Seg Neutrophils # Man Lymphocytes # (Manual) Monocytes # (Manual) Eosinophils # (Manual) Fibrinogen dRVVT Confirm Interp Factor V Activity POC ABG pH POC ABG pCO2 POC ABG pO2 Sodium Potassium Chloride Carbon Dioxide BUN Creatinine Glucose POC Glucose 126 H Lactic Acid Calcium Phosphorus Magnesium Direct Bilirubin Troponin T C-Reactive Protein Total Protein Albumin Triglycerides Cholesterol LDL Cholesterol Direct HDL Cholesterol Urine WBC (Auto) Urine Creatinine Urine Total Protein Vancomycin Trough Rheumatoid Factor Complement C4 Crossmatch Allied health notes reviewed: RT
--- NOTE | 2016-10-06 14:46 | Progress Note ---
Assessment and Plan Acute hypoxic respiratory failure on mechanical ventilation s/p trach and PEG Acute left MCA CVA echocardiogram demonstrates at least moderate LVH but a normal LV systolic function, EF 50-55%. no thrombus visualized on transthoracic echocardiogram. Dislodged PEG tube s/p repair of gastric perforation with wedge gastrectomy Hypertension was hypotensive Acute on chronic renal failure Fungemia Diabetes mellitus Anemia requiring transfusion of PRBCs Thrombocytopenia Hyponatremia Paroxysmal Afib s/p failed cardioversion on 09/25 on amiodarone drip anticoagulation not initiated due to anemia, thrombocytopenia and recent massive CVA Continue medical therapy and conservative cardiac management. Subjective Date of service: 10/06/16 Principal diagnosis: Acute resp failure on MVS; S/P Acute CVA; Acute Encephalopathy; JUANITA Interval history: No acute cardiac events. Objective Vital Signs Temp Pulse Resp BP Pulse Ox Pulse Ox 10/06/16 13:50 112 H 144/78 91 10/06/16 12:30 103 H 30 H 147/78 95 10/06/16 12:06 99.2 F 10/06/16 12:00 113 H 48 H 147/78 95 10/06/16 11:30 116 H 34 H 148/79 93 10/06/16 11:00 112 H 32 H 152/80 93 10/06/16 10:40 114 H 198/98 93 10/06/16 10:30 111 H 30 H 198/89 94 10/06/16 10:00 112 H 29 H 194/84 94 10/06/16 09:45 99 10/06/16 09:30 110 H 27 H 187/84 94 10/06/16 09:00 112 H 25 H 195/95 94 10/06/16 08:30 111 H 29 H 159/90 93 10/06/16 08:00 98.4 F 102 H 22 122/62 92 10/06/16 07:30 89 21 122/62 94 10/06/16 07:00 94 H 24 122/62 91 10/06/16 06:30 91 H 15 119/57 98 10/06/16 06:00 86 21 119/57 98 10/06/16 05:30 97 H 25 H 120/65 97 10/06/16 05:00 95 H 27 H 120/65 99 10/06/16 04:52 90 119/53 95 10/06/16 04:30 84 16 119/53 100 10/06/16 04:00 98.9 F 88 21 120/65 98 10/06/16 03:51 89 17 106/56 99 10/06/16 03:30 84 14 109/54 99 10/06/16 03:05 84 15 109/54 99 10/06/16 03:00 84 17 109/54 100 10/06/16 02:30 89 15 106/41 99 10/06/16 02:07 87 14 106/41 98 10/06/16 02:00 86 17 106/41 98 10/06/16 01:30 85 15 108/48 98 10/06/16 01:08 85 14 108/48 98 10/06/16 01:00 85 15 108/48 98 10/06/16 00:36 87 105/39 100 100 10/06/16 00:30 88 21 105/39 99 10/06/16 00:05 98 F 86 15 105/39 98 10/06/16 00:00 98.0 F 86 15 105/39 98 10/05/16 23:30 85 18 109/54 98 10/05/16 23:00 82 12 109/54 98 10/05/16 22:30 101 H 15 156/81 99 10/05/16 22:00 156/81 99 10/05/16 21:57 150/80 10/05/16 21:25 97.4 F L 77 12 126/58 98 10/05/16 21:00 97.6 F 85 12 121/59 97 10/05/16 20:00 83 12 115/57 96 10/05/16 19:45 84 12 116/59 95 10/05/16 19:41 83 120/60 95 10/05/16 19:30 85 12 116/62 95 10/05/16 19:15 87 12 125/65 94 10/05/16 19:10 87 12 128/67 94 10/05/16 19:05 90 12 157/78 94 10/05/16 19:00 92 H 12 162/84 94 10/05/16 18:57 12 10/05/16 18:55 94 F L 94 H 12 193/94 93 10/05/16 18:32 97 F L 87 12 195/78 94 10/05/16 16:13 90 125/61 97 08/16/17 16:10 84 30 H 106/52 100 10/05/16 16:00 99.8 F H 91 H 28 H 125/61 100 10/05/16 15:30 91 H 26 H 106/52 100 10/05/16 15:00 87 29 H 94/42 100 - Physical Examination General: Other (intubated via trach) Cardiac: Positive: Reg Rate and Rhythm - Labs and Meds CBC 10/06/16 Range/Units 03:50 WBC 8.6 (4.5-11.0) K/mm3 RBC 3.00 L (3.65-5.03) M/mm3 Hgb 8.6 L (10.1-14.3) gm/dl Hct 25.8 L (30.3-42.9) % Plt Count 65 L (140-440) K/mm3 Comprehensive Metabolic Panel 10/06/16 Range/Units 03:50 Sodium 133 L (137-145) mmol/L Potassium 3.6 (3.6-5.0) mmol/L Chloride 95.9 L (98-107) mmol/L Carbon Dioxide 23 (22-30) mmol/L BUN 26 H (7-17) mg/dL Creatinine 2.0 H (0.7-1.2) mg/dL Glucose 116 H (65-100) mg/dL Calcium 7.8 L (8.4-10.2) mg/dL - Imaging and Cardiology EKG: image reviewed - Allied health notes Allied health notes reviewed: RT
[2016-10-06] MEDS: HEPARIN IV PRN (14:51)
--- NOTE | 2016-10-06 14:57 | Progress Note ---
Assessment and Plan Continue with supportive care Continue NPO and start TPN Infectious Disease consultants should be contacted to return to her case with these new events as her antibiotics most likely need to be broadened and with her renal disease we need their expertise. Will follow Subjective Date of service: 10/06/16 Patient Reports: Positive: other (Remains intubated) Objective Vital Signs - 12hr 10/06/16 10/06/16 10/06/16 03:00 03:05 03:30 Temperature Pulse Rate 84 84 84 Respiratory 17 15 14 Rate Blood Pressure 109/54 109/54 109/54 O2 Sat by Pulse 100 99 99 Oximetry O2 Sat by Pulse Oximetry [ Assessment] 10/06/16 10/06/16 10/06/16 03:51 04:00 04:30 Temperature 98.9 F Pulse Rate 89 88 84 Respiratory 17 21 16 Rate Blood Pressure 106/56 120/65 119/53 O2 Sat by Pulse 99 98 100 Oximetry O2 Sat by Pulse Oximetry [ Assessment] 10/06/16 10/06/16 10/06/16 04:52 05:00 05:30 Temperature Pulse Rate 90 95 H 97 H Respiratory 27 H 25 H Rate Blood Pressure 119/53 120/65 120/65 O2 Sat by Pulse 95 99 97 Oximetry O2 Sat by Pulse Oximetry [ Assessment] 10/06/16 10/06/16 10/06/16 06:00 06:30 07:00 Temperature Pulse Rate 86 91 H 94 H Respiratory 21 15 24 Rate Blood Pressure 119/57 119/57 122/62 O2 Sat by Pulse 98 98 91 Oximetry O2 Sat by Pulse Oximetry [ Assessment] 10/06/16 10/06/16 10/06/16 07:30 08:00 08:30 Temperature 98.4 F Pulse Rate 89 102 H 111 H Respiratory 21 22 29 H Rate Blood Pressure 122/62 122/62 159/90 O2 Sat by Pulse 94 92 93 Oximetry O2 Sat by Pulse Oximetry [ Assessment] 10/06/16 10/06/16 10/06/16 09:00 09:30 09:45 Temperature Pulse Rate 112 H 110 H Respiratory 25 H 27 H Rate Blood Pressure 195/95 187/84 O2 Sat by Pulse 94 94 Oximetry O2 Sat by Pulse 99 Oximetry [ Assessment] 10/06/16 10/06/16 10/06/16 10:00 10:30 10:40 Temperature Pulse Rate 112 H 111 H 114 H Respiratory 29 H 30 H Rate Blood Pressure 194/84 198/89 198/98 O2 Sat by Pulse 94 94 93 Oximetry O2 Sat by Pulse Oximetry [ Assessment] 10/06/16 10/06/16 10/06/16 11:00 11:30 12:00 Temperature Pulse Rate 112 H 116 H 113 H Respiratory 32 H 34 H 48 H Rate Blood Pressure 152/80 148/79 147/78 O2 Sat by Pulse 93 93 95 Oximetry O2 Sat by Pulse Oximetry [ Assessment] 10/06/16 10/06/16 10/06/16 12:06 12:30 13:00 Temperature 99.2 F Pulse Rate 103 H 120 H Respiratory 30 H 31 H Rate Blood Pressure 147/78 155/71 O2 Sat by Pulse 95 96 Oximetry O2 Sat by Pulse Oximetry [ Assessment] 10/06/16 10/06/16 10/06/16 13:30 13:50 14:00 Temperature Pulse Rate 115 H 112 H 113 H Respiratory 24 29 H Rate Blood Pressure 144/78 144/78 127/70 O2 Sat by Pulse 98 91 91 Oximetry O2 Sat by Pulse Oximetry [ Assessment] 10/06/16 14:30 Temperature Pulse Rate 109 H Respiratory 26 H Rate Blood Pressure 116/58 O2 Sat by Pulse 96 Oximetry O2 Sat by Pulse Oximetry [ Assessment] - Abdomen soft, bowel sounds hypoactive, not distended, wound (No signs of infection) - Labs 10/06/16 03:50 10/06/16 03:50 Diabetes panel 10/06/16 Range/Units 03:50 Sodium 133 L (137-145) mmol/L Potassium 3.6 (3.6-5.0) mmol/L Chloride 95.9 L (98-107) mmol/L Carbon Dioxide 23 (22-30) mmol/L BUN 26 H (7-17) mg/dL Creatinine 2.0 H (0.7-1.2) mg/dL Glucose 116 H (65-100) mg/dL Calcium 7.8 L (8.4-10.2) mg/dL Calcium panel 10/06/16 Range/Units 03:50 Calcium 7.8 L (8.4-10.2) mg/dL Phosphorus 2.90 D (2.5-4.5) mg/dL Pituitary panel 10/06/16 Range/Units 03:50 Sodium 133 L (137-145) mmol/L Potassium 3.6 (3.6-5.0) mmol/L Chloride 95.9 L (98-107) mmol/L Carbon Dioxide 23 (22-30) mmol/L BUN 26 H (7-17) mg/dL Creatinine 2.0 H (0.7-1.2) mg/dL Glucose 116 H (65-100) mg/dL Calcium 7.8 L (8.4-10.2) mg/dL Adrenal panel 10/06/16 Range/Units 03:50 Sodium 133 L (137-145) mmol/L Potassium 3.6 (3.6-5.0) mmol/L Chloride 95.9 L (98-107) mmol/L Carbon Dioxide 23 (22-30) mmol/L BUN 26 H (7-17) mg/dL Creatinine 2.0 H (0.7-1.2) mg/dL Glucose 116 H (65-100) mg/dL Calcium 7.8 L (8.4-10.2) mg/dL
--- NOTE | 2016-10-06 15:14 | Progress Note ---
Assessment and Plan Assessment and plan: --Malfunctioning PEG tube; GI and interventional radiologists evaluating the patient Follow the recommendations --Acute hypoxic respiratory failure vent dependent/unable to wean s/p trach and PEG, continue PEG feeds --Acute large left MCA CVA status post TPA/encephalopathy, Aspirin/statin/ supportive care --Hyponatremia; mild improvement, closely monitor Dialysis is scheduled for today, nephrology following --Hypokalemia; replace per protocol and monitor levels --Paroxysmal A. fib, persistent RVR ,on amiodarone drip, Cardiology following --Chronic anticoagulation need to be started per cardiology, will consult neurology for recommendations --Anemia, status post multiple units of PRBC transfusion, closely monitor H&H and transfuse as needed --Hypotension/ septic shock on pressors, titrate systolic blood pressures to more than 100 --Acute on chronic kidney disease stage III , worsening renal function , nephrology following Hemodialysis as needed --Aspiration pneumonia, Continue vancomycin and Flagyl, ID following --Acute exacerbation of COPD;, Nebulizers tapering dose of steroids antibiotics and ventilatory support, pulmonary following --Anemia requiring blood transfusion; closely monitor H&H and transfuse as needed --2 diabetes mellitus; Accu-Chek sliding scale coverage and ADA diet and insulin as needed --Moderate to severe protein calorie malnutrition with albumin of 2.2, Nutritional supplements, tube feeding, supportive care --DVT prophylaxis with heparin --Full CODE STATUS I talked to son and the brother periodically and updated patient's condition and treatment plan They are aware of patient's poor prognosis Malfunctioning G-tube, going for exchange Disposition: Continue ICU care, [facility] has accepted once off drtaina d/w Dr. Nazario, he will discuss with family 10/05/16: Pre-op diagnosis: perforated viscus Post-op diagnosis: other (gastric perforation) Findings: Gastric perforation from dislodged PEG with significant ascites Procedure: Diagnostic laparoscopy, repair of gastric perforation with wedge gastrectomy, abdominal washout, drain placement Anesthesia: GUANACO Surgeon: KHADAR KRAMER Estimated blood loss: minimal Pathology: list (resected stomach containing gastric perforation) Specimen disposition: to lab Condition: stable Disposition: PACU Re-consulted Infectious Disease b/c perforation. History Interval history: Patient seen and examined. Follow up on current diagnosis/respiratory failure. Still intubated, sedated. Imaging, old records, testing, labs, nursing notes reviewed. Hospitalist Physical - Physical exam Narrative exam: GEN: Ill appearing, trach, vegetative state HEENT: Occasional facial movement NECK: SUPPLE, trach in place CVS: Tachycardic irregular irregular NORMAL S1S2 LUNGS/CHEST: NORMAL CHEST EXPANSION B, GOOD AIR ENTRY B ABD: SOFT, NTND, PEG in Place malfunctioning GBS, NO REBOUND OR GUARDING EXT/SKIN: NO SIGNIFICANT EDEMA OR RASH MSK: FROM X 4 EXTREMITIES NEURO: CN 2-12 GROSSLY INTACT, on a ventilator PSY: Comatose, - Constitutional Vitals: Temp Pulse Resp BP Pulse Ox 99.2 F 109 H 26 H 116/58 96 10/06/16 12:06 10/06/16 14:30 10/06/16 14:30 10/06/16 14:30 10/06/16 14:30 General appearance: Present: no acute distress, obese, other (on vent, non- responsive) Results - Labs CBC & Chem 7: 10/06/16 03:50 10/06/16 03:50 Labs: Laboratory Last Values WBC 8.6 K/mm3 (4.5-11.0) 10/06/16 03:50 RBC 3.00 M/mm3 (3.65-5.03) L 10/06/16 03:50 Hgb 8.6 gm/dl (10.1-14.3) L 10/06/16 03:50 Hct 25.8 % (30.3-42.9) L 10/06/16 03:50 MCV 86 fl (79-97) 10/06/16 03:50 MCH 29 pg (28-32) 10/06/16 03:50 MCHC 33 % (30-34) 10/06/16 03:50 RDW 17.9 % (13.2-15.2) H 10/06/16 03:50 Plt Count 65 K/mm3 (140-440) L 10/06/16 03:50 Lymph % (Auto) 6.9 % (13.4-35.0) L 09/21/16 07:45 [place] % (Auto) 0.5 % (0.0-7.3) 10/03/16 05:10 Eos % (Auto) 1.3 % (0.0-4.3) 10/03/16 05:10 Baso % (Auto) 0.2 % (0.0-1.8) 09/21/16 07:45 Lymph # 0.9 K/mm3 (1.2-5.4) L 09/21/16 07:45 [place] # 0.1 K/mm3 (0.0-0.8) 10/03/16 05:10 Eos # 0.2 K/mm3 (0.0-0.4) 10/03/16 05:10 Baso # 0.0 K/mm3 (0.0-0.1) 10/03/16 05:10 Add Manual Diff Complete 10/06/16 03:50 Total Counted 100 10/06/16 03:50 Seg Neutrophils % Ophthalmic Tech 10/03/16 05:10 Seg Neuts % (Manual) 30.0 % (40.0-70.0) L 10/06/16 03:50 Band Neutrophils % 44.0 % 10/06/16 03:50 Lymphocytes % (Manual) 5.0 % (13.4-35.0) L 10/06/16 03:50 Reactive Lymphs % (Man) 0 % 10/06/16 03:50 Monocytes % (Manual) 6.0 % (0.0-7.3) 10/06/16 03:50 Eosinophils % (Manual) 2.0 % (0.0-4.3) 10/06/16 03:50 Basophils % (Manual) 0 % (0.0-1.8) 10/06/16 03:50 Metamyelocytes % 9.0 % 10/06/16 03:50 Myelocytes % 0 % 10/06/16 03:50 Promyelocytes % 0 % 10/06/16 03:50 Blast Cells % 0 % 10/06/16 03:50 Nucleated RBC % Not Reportable 10/06/16 03:50 Seg Neutrophils # 11.9 K/mm3 (1.8-7.7) H 10/03/16 05:10 Seg Neutrophils # Man 2.6 K/mm3 (1.8-7.7) 10/06/16 03:50 Band Neutrophils # 3.8 K/mm3 10/06/16 03:50 Lymphocytes # (Manual) 0.4 K/mm3 (1.2-5.4) L 10/06/16 03:50 Abs React Lymphs (Man) 0.0 K/mm3 10/06/16 03:50 Monocytes # (Manual) 0.5 K/mm3 (0.0-0.8) 10/06/16 03:50 Eosinophils # (Manual) 0.2 K/mm3 (0.0-0.4) 10/06/16 03:50 Basophils # (Manual) 0.0 K/mm3 (0.0-0.1) 10/06/16 03:50 Metamyelocytes # 0.8 K/mm3 10/06/16 03:50 Myelocytes # 0.0 K/mm3 10/06/16 03:50 Promyelocytes # 0.3 K/mm3 10/06/16 03:50 Blast Cells # 0.0 K/mm3 10/06/16 03:50 Pathologist Review 09/13/16 04:00 WBC Morphology Not Reportable 10/06/16 03:50 Hypersegmented Neuts Not Reportable 10/06/16 03:50 Hyposegmented Neuts Not Reportable 10/06/16 03:50 Hypogranular Neuts Not Reportable 10/06/16 03:50 Smudge Cells Not Reportable 10/06/16 03:50 Toxic Granulation Not Reportable 10/06/16 03:50 Toxic Vacuolation Not Reportable 10/06/16 03:50 Dohle Bodies 1+ 10/06/16 03:50 Pelger-Huet Anomaly Not Reportable 10/06/16 03:50 Jasmina Rods Not Reportable 10/06/16 03:50 Platelet Estimate Consistent w auto 10/06/16 03:50 Clumped Platelets Not Reportable 10/06/16 03:50 Plt Clumps, EDTA Not Reportable 10/06/16 03:50 Large Platelets Not Reportable 10/06/16 03:50 Giant Platelets Few 10/06/16 03:50 Platelet Satelliting Not Reportable 10/06/16 03:50 Plt Morphology Comment Not Reportable 10/06/16 03:50 RBC Morphology Not Reportable 10/06/16 03:50 Dimorphic RBCs Not Reportable 10/06/16 03:50 Polychromasia Not Reportable 10/06/16 03:50 Hypochromasia Few 10/06/16 03:50 Poikilocytosis Not Reportable 10/06/16 03:50 Anisocytosis 1+ 10/06/16 03:50 Microcytosis Not Reportable 10/06/16 03:50 Macrocytosis Not Reportable 10/06/16 03:50 Spherocytes Not Reportable 10/06/16 03:50 Pappenheimer Bodies Not Reportable 10/06/16 03:50 Sickle Cells Not Reportable 10/06/16 03:50 Target Cells Not Reportable 10/06/16 03:50 Tear Drop Cells Not Reportable 10/06/16 03:50 Ovalocytes Not Reportable 10/06/16 03:50 Stomatocytes Few 10/06/16 03:50 Helmet Cells Not Reportable 10/06/16 03:50 [place] Bodies Not Reportable 10/06/16 03:50 [place] Rings Not Reportable 10/06/16 03:50 [place] Cells Not Reportable 10/06/16 03:50 Bite Cells Not Reportable 10/06/16 03:50 Crenated Cell Not Reportable 10/06/16 03:50 Elliptocytes Not Reportable 10/06/16 03:50 Acanthocytes (Spur) Not Reportable 10/06/16 03:50 Rouleaux Not Reportable 10/06/16 03:50 Hemoglobin C Crystals Not Reportable 10/06/16 03:50 Schistocytes Not Reportable 10/06/16 03:50 Malaria parasites Not Reportable 10/06/16 03:50 ESR > 140.0 mm/Hr (0-20) 09/08/16 11:48 Jun Bodies Not Reportable 10/06/16 03:50 Hem Pathologist Commnt No 10/06/16 03:50 PT 13.8 Sec. (12.2-14.9) 09/15/16 05:00 INR 1.01 (0.87-1.13) 09/15/16 05:00 APTT 24.4 Sec. (24.2-36.6) 09/15/16 05:00 Thrombin Time 16.8 Sec. (15.1-19.6) 09/03/16 00:10 Fibrinogen 750 mg/dl (211-480) H 09/08/16 11:48 Lupus Anticoagulant see below 09/12/16 09:59 LA PTT Baseline See scanned report 09/12/16 09:59 dRVVT Confirm Interp Positive (Negative) H 09/12/16 09:59 dRVVT Screen 50:50 See scanned report 09/12/16 09:59 dRVVT Mix Interpret See scanned report 09/12/16 09:59 Protein C Antigen 122 % (70-140) 09/08/16 15:35 Free Protein S 97 % normal (50-147) 09/08/16 15:35 Total Protein S 109 % (70-140) 09/08/16 15:35 Antithrombin III Ag 100 % (80-120) 09/08/16 15:35 Heparin Anti-Xa, Unfract Negative (Negative) 09/29/16 13:35 Factor V Activity 182 % (65-150) H 09/08/16 15:35 POC ABG pH 7.310 (7.35-7.45) L 10/06/16 04:53 POC ABG pCO2 49.0 (35-45) H 10/06/16 04:53 POC ABG pO2 84 (80-105) 10/06/16 04:53 POC ABG HCO3 24.7 10/06/16 04:53 POC ABG Total CO2 26 10/06/16 04:53 POC ABG O2 Sat 95 10/06/16 04:53 POC ABG Base Excess -2 10/06/16 04:53 FiO2 28 % 10/06/16 04:53 Sodium 133 mmol/L (137-145) L 10/06/16 03:50 Potassium 3.6 mmol/L (3.6-5.0) 10/06/16 03:50 Chloride 95.9 mmol/L (98-107) L 10/06/16 03:50 Carbon Dioxide 23 mmol/L (22-30) 10/06/16 03:50 Anion Gap 18 mmol/L 10/06/16 03:50 BUN 26 mg/dL (7-17) H 10/06/16 03:50 Creatinine 2.0 mg/dL (0.7-1.2) H 10/06/16 03:50 Estimated GFR 33 ml/min 10/06/16 03:50 BUN/Creatinine Ratio 13.00 % 10/06/16 03:50 Glucose 116 mg/dL (65-100) H 10/06/16 03:50 POC Glucose 126 (70-105) H 10/06/16 05:23 Osmolality 351 Mosm/kg 09/16/16 11:47 Lactic Acid 4.50 mmol/L (0.7-2.0) H* 09/28/16 07:25 Calcium 7.8 mg/dL (8.4-10.2) L 10/06/16 03:50 Phosphorus 2.90 mg/dL (2.5-4.5) D 10/06/16 03:50 Magnesium 1.90 mg/dL (1.7-2.3) 10/06/16 03:50 Total Bilirubin 1.20 mg/dL (0.1-1.2) 09/29/16 06:45 Direct Bilirubin 0.9 mg/dL (0-0.2) H 09/29/16 06:45 Indirect Bilirubin 0.3 mg/dL 09/29/16 06:45 AST 24 units/L (5-40) 09/29/16 06:45 ALT 16 units/L (7-56) 09/29/16 06:45 Alkaline Phosphatase 72 units/L (35-129) 09/29/16 06:45 Ammonia 27.0 umol/L (25-60) 09/07/16 08:37 Total Creatine Kinase 121 units/L (30-135) 09/29/16 20:12 CK-MB (CK-2) < 1.0 ng/mL (0.0-4.0) 09/29/16 20:12 CK-MB (CK-2) Rel Index 0.8 (0-4) 09/29/16 20:12 Troponin T 0.204 ng/mL (0.00-0.029) H* 09/29/16 20:12 C-Reactive Protein 3.20 mg/dL (0.00-1.30) H 09/23/16 05:00 Total Protein 4.3 g/dL (6.3-8.2) L 09/29/16 06:45 Albumin 1.3 g/dL (3.9-5) L 09/29/16 06:45 Albumin/Globulin Ratio 0.4 % 09/29/16 06:45 Triglycerides 137 mg/dL (2-149) 09/29/16 20:12 Cholesterol 31 mg/dL (50-199) L 09/29/16 20:12 LDL Cholesterol Direct 4 mg/dL (50-130) L 09/29/16 20:12 HDL Cholesterol 3 mg/dL (40-59) L 09/29/16 20:12 Cholesterol/HDL Ratio 10.33 % 09/29/16 20:12 Angiotensin Convert Enz See scanned report 09/08/16 11:48 TSH 1.010 mlU/mL (0.270-4.200) 09/07/16 08:37 HCG, Qual Negative (Negative) 09/03/16 00:10 Urine Color Yellow (Yellow) 09/09/16 14:13 Urine Turbidity Slightly-cloudy (Clear) 09/09/16 14:13 Urine pH 5.0 (5.0-7.0) 09/09/16 14:13 Ur Specific [place] 1.012 (1.003-1.030) 09/09/16 14:13 Urine Protein 30 mg/dl mg/dL (Negative) 09/09/16 14:13 Urine Glucose (UA) Neg mg/dL (Negative) 09/09/16 14:13 Urine Ketones Neg mg/dL (Negative) 09/09/16 14:13 Urine Blood Lg (Negative) 09/09/16 14:13 Urine Nitrite Neg (Negative) 09/09/16 14:13 Urine Bilirubin Neg (Negative) 09/09/16 14:13 Urine Urobilinogen < 2.0 mg/dL (<2.0) 09/09/16 14:13 Ur Leukocyte Esterase Sm (Negative) 09/09/16 14:13 Urine WBC (Auto) 25.0 /HPF (0.0-6.0) H 09/09/16 14:13 Urine RBC (Auto) > 182.0 /HPF (0.0-6.0) 09/09/16 14:13 Urine Bacteria (Auto) 1+ /HPF (Negative) 09/09/16 14:13 Urine WBC Clumps 2+ /HPF 09/07/16 02:47 Hyaline Casts 4 /LPF 09/07/16 02:47 Urine Mucus Few /HPF 09/09/16 14:13 Urine Eosinophils None seen (None Seen) 09/07/16 16:00 Urine Total Volume 1350 09/21/16 12:00 Urine Creatinine 54.8 mg/dL (0.1-20.0) H 09/21/16 12:00 Height (in) 67.0 inches 09/21/16 12:00 Weight (lb) 92.0 lbs 09/21/16 12:00 Creatinine Clearance 15 09/21/16 12:00 Urine Sodium 36 mEq/L 09/16/16 19:19 Urine Total Protein 16 mg/dL (5-11.8) H 09/16/16 19:19 Vancomycin Trough 2.3 ug/mL (5.0-20.0) L 09/21/16 13:00 Random Vancomycin 2.3 ug/mL (0-40.0) 09/09/16 03:00 Urine Opiates Screen Presumptive negative 09/03/16 15:11 Urine Methadone Screen Presumptive positive 09/03/16 15:11 Ur Barbiturates Screen Presumptive positive 09/03/16 15:11 Ur Phencyclidine Scrn Presumptive negative 09/03/16 15:11 Ur Amphetamines Screen Presumptive negative 09/03/16 15:11 U Benzodiazepines Scrn Presumptive negative 09/03/16 15:11 Urine Cocaine Screen Presumptive negative 09/03/16 15:11 U Marijuana (THC) Screen Presumptive positive 09/03/16 15:11 Drugs of Abuse Note Disclamer 09/03/16 15:11 Rheumatoid Factor 24 IU/ml (0-13) H 09/08/16 11:48 SAHIL Screen Negative (Negative) 09/07/16 09:20 Proteinase 3 (PR3) Ab <1.0 AI (<1.0) 09/07/16 09:20 Myeloperoxidase Ab <1.0 AI (<1.0) 09/07/16 09:20 Sjogren's Antibody <1.0 AI (<1.0) 09/08/16 15:35 Scl-70 Scleroderma Ab <1.0 AI (<1.0) 09/08/16 15:35 Centromere B Antibody <1.0 AI (<1.0) 09/08/16 12:02 Heparin-induced Plt Ab Negative (Negative) 09/29/16 13:35 UF Heparin High Dose 11 % Release 09/29/16 13:35 SUDHIR UFH Low Dose 0.1 6 % Release 09/29/16 13:35 SUDHIR UFH Low Dose 0.5 8 % Release 09/29/16 13:35 Cardiolipid IgG Ab <14 GPL (<=14) 09/12/16 09:59 Cardiolipid IgA Ab <11 APL (<=11) 09/12/16 09:59 Cardiolipid IgM Ab <12 MPL (<=12) 09/12/16 09:59 Complement C3 148 mg/dL (90-180) 09/07/16 09:20 Complement C4 58 mg/dL (16-47) H 09/07/16 09:20 RPR Nonreactive (Nonreactive) 09/08/16 11:48 Hepatitis A IgM Ab Non-reactive (NonReactive) 09/24/16 14:40 Hep Bs Antigen Non-reactive (Negative) 09/24/16 14:40 Hep B Core IgM Ab Non-reactive (NonReactive) 09/24/16 14:40 Hepatitis C Antibody Non-reactive (NonReactive) 09/24/16 14:40 HIV 1&2 Antibody Rapid Non react (Non React) 09/08/16 11:48 HIV P24 Antigen Non react (Non React) 09/08/16 11:48 Blood Type A POSITIVE 10/05/16 15:50 Antibody Screen Negative 10/05/16 15:50 DELORIS Antibody Screen Negative 09/25/16 10:30 Crossmatch See Detail 10/05/16 15:50
[2016-10-06] MEDS: ASPIRIN PO SCH (18:38)
[2016-10-06] MEDS ORDERED: TPN ADULT 2,016 ML IV SCH (20:00)
[2016-10-06] MEDS: MYCAMINE 100 MG in NACL 0.9% 100 ML IV SCH (20:21)
[2016-10-07 05:27] LABS: Mean Corpuscular HGB Conc 29 % (30-34); Mean Corpuscular Hemoglobin 27 pg (28-32); Mean Corpuscular Volume 95 fl (79-97); Red Blood Count 2.68 M/mm3 (3.65-5.03); Red Cell Distribution Width 19.6 % (13.2-15.2)
[2016-10-07 05:32] LABS: Hematocrit 25.3 % (30.3-42.9); Hemoglobin 7.3 gm/dl (10.1-14.3); Platelet Count 74 K/mm3 (140-440)
[2016-10-07 06:52] LABS: BUN/Creatinine Ratio TNR; Blood Urea Nitrogen TNR mg/dL (7-17)
[2016-10-07 06:53] LABS: Alanine Aminotransferase TNR units/L (7-56); Albumin TNR g/dL (3.9-5); Calcium TNR mg/dL (8.4-10.2)
[2016-10-07 06:54] LABS: Hemolysis Index TNR
[2016-10-07 07:05] LABS: Basophils % (Manual) 0 % (0.0-1.8); Total Cells Counted 100
[2016-10-07 07:06] LABS: Anisocytosis 1+; Band Neutrophils # (Manual) 2.7 K/mm3; Eosinophils % (Manual) 0 % (0.0-4.3); Hypochromasia Rare; Platelet Estimate Consistent w Auto
--- NOTE | 2016-10-07 08:36 | Progress Note ---
Assessment and Plan Acute hypoxic respiratory failure on mechanical ventilation s/p trach and PEG Acute left MCA CVA echocardiogram demonstrates at least moderate LVH but a normal LV systolic function, EF 50-55%. no thrombus visualized on transthoracic echocardiogram. Dislodged PEG tube s/p repair of gastric perforation with wedge gastrectomy Hypertension was hypotensive Acute on chronic renal failure Fungemia Diabetes mellitus Anemia requiring transfusion of PRBCs Thrombocytopenia Hyponatremia Paroxysmal Afib s/p failed cardioversion on 09/25 on amiodarone drip anticoagulation not initiated due to anemia, thrombocytopenia and recent massive CVA Continue medical therapy and conservative cardiac management. Subjective Date of service: 10/07/16 Principal diagnosis: Acute resp failure on MVS; S/P Acute CVA; Acute Encephalopathy; JUANITA Interval history: No interval changes. Objective Vital Signs Temp Pulse Resp BP Pulse Ox Pulse Ox 10/07/16 06:30 88 28 H 97/47 88 10/07/16 06:00 94 H 28 H 101/56 97 10/07/16 05:30 99 H 29 H 100/50 95 10/07/16 05:00 108 H 31 H 118/73 100 10/07/16 04:55 97.6 F 10/07/16 04:30 103 H 28 H 118/73 100 10/07/16 04:20 101 H 118/73 100 10/07/16 04:00 101.1 F H 102 H 27 H 126/64 99 10/07/16 03:30 112 H 23 212/95 98 10/07/16 03:00 114 H 21 153/74 99 100 10/07/16 02:30 112 H 30 H 153/74 99 10/07/16 02:00 113 H 31 H 143/77 98 10/07/16 01:30 112 H 29 H 143/77 98 10/07/16 01:00 113 H 32 H 160/80 98 10/07/16 00:47 101.1 F H 10/07/16 00:30 111 H 30 H 139/68 98 10/07/16 00:20 96 H 160/80 98 10/07/16 00:00 98.4 F 114 H 28 H 168/85 97 10/06/16 23:44 114 H 32 H 155/81 98 10/06/16 23:30 111 H 28 H 155/81 96 10/06/16 23:00 109 H 30 H 133/61 97 10/06/16 22:30 108 H 29 H 132/71 97 10/06/16 22:00 109 H 28 H 127/65 97 10/06/16 21:30 114 H 31 H 169/81 96 10/06/16 21:00 114 H 30 H 190/81 94 10/06/16 20:43 98.4 F 10/06/16 20:30 113 H 29 H 119/74 93 10/06/16 20:07 113 H 119/74 92 10/06/16 20:00 99.6 F 109 H 21 119/74 98 10/06/16 19:30 106 H 21 132/68 98 10/06/16 19:00 110 H 22 128/77 97 10/06/16 18:30 110 H 18 139/74 97 10/06/16 18:00 116 H 27 H 155/79 98 10/06/16 17:30 101 H 22 133/65 93 10/06/16 17:00 108 H 21 159/72 98 10/06/16 16:55 113 H 147/69 89 10/06/16 16:30 111 H 16 147/69 99 10/06/16 16:00 110 H 22 154/72 98 10/06/16 15:44 99.6 F 10/06/16 15:30 105 H 23 111/59 97 10/06/16 15:00 108 H 28 H 135/70 96 10/06/16 14:30 109 H 26 H 116/58 96 10/06/16 14:00 113 H 29 H 127/70 91 10/06/16 13:50 112 H 144/78 91 10/06/16 13:30 115 H 24 144/78 98 10/06/16 13:00 120 H 31 H 155/71 96 10/06/16 12:30 103 H 30 H 147/78 95 10/06/16 12:06 99.2 F 10/06/16 12:00 113 H 48 H 147/78 95 10/06/16 11:30 116 H 34 H 148/79 93 10/06/16 11:00 112 H 32 H 152/80 93 10/06/16 10:40 114 H 198/98 93 10/06/16 10:30 111 H 30 H 198/89 94 10/06/16 10:00 112 H 29 H 194/84 94 10/06/16 09:45 99 10/06/16 09:30 110 H 27 H 187/84 94 10/06/16 09:00 112 H 25 H 195/95 94 - Physical Examination General: Other (intubated via trach) Cardiac: Positive: irregularly irregular - Labs and Meds Cardiac Enzymes 10/07/16 Range/Units 05:00 AST TNR CBC 10/07/16 Range/Units 05:00 WBC 17.0 H (4.5-11.0) K/mm3 RBC 2.68 L (3.65-5.03) M/mm3 Hgb 7.3 L (10.1-14.3) gm/dl Hct 25.3 L (30.3-42.9) % Plt Count 74 L (140-440) K/mm3 Comprehensive Metabolic Panel 10/07/16 Range/Units 05:00 Sodium TNR Potassium TNR Chloride TNR Carbon Dioxide TNR BUN TNR Creatinine TNR Glucose TNR Calcium TNR AST TNR ALT TNR Alkaline Phosphatase TNR Total Protein TNR Albumin TNR - Imaging and Cardiology EKG: image reviewed - Allied health notes Allied health notes reviewed: RT
--- NOTE | 2016-10-07 10:04 | Consultation ---
History of Present Illness - Reason for Consult Consult date: 10/07/16 fever Requesting physician: MONA BROWN - History of Present Illness 46-year-old woman with diabetes mellitus, hypertension and chronic kidney disease. Initially admitted on 09/03/16 due to a large left MCA CVA and accelerated HTN with SBP ~ 260s. Upon admission she was afebrile and WBC was 10.5. Patient then required mechanical ventilation. Her WBC went up to 27K. By ID Dr Cohen was called. It was felt she had presumed aspiration pneumonia. Tracheal aspirate, urine and blood cultures all negative. C idd was negative. Antibiotics were adjusted to vancomcyn and zosyn. She was also on IV soulmedrol. On 09/20 she had a PEG placement. By 09/23/16 patient started spiking high fever 101 and WBC went to 19K. Repeat blood cultures on 09/23 grew Silvia albicans. Antibiotics were adjusted to micafungin for candidemia, flagyl and PO vancomycin for presumptive colitis. PEG tube noted with high volume bilious drainage. On 10/03 CT abd showed dislodged PEG tube. Attempted to repair failed. Patient remains on the ventilator via trach. Developed acute on chronic kidney disease stage III. on 10/05/16 patient was taken tot the OR for exlap found to have a gastric perforation from dislodged PEG with significant ascites, underwent repair of gastric perforation with wedge gastrectomy, abdominal washout, drain placement. During last 48 hours patient re-started spiking fever to 101 and leukocytosis to 17K. Microbiology: Blood cultures: 09/13 neg / Silvia albicans 09/25 neg Urine cultures: 09/10 neg 09/13 neg 09/23 10-100K mixed species Respiratory cultures: 09/07 neg 09/13 neg / neg Wound cultures: Stool cultures: Current Antimicrobials: Vancomycin PO 10/01 Micafungin 09/27 Metronidazole 09/25 Previous Antimicrobials: Zosyn Past History Past Medical History: diabetes, hypertension, renal failure, other (Medical noncompliance) Past Surgical History: cholecystectomy (per chart review) Social history: other (per chart review, family denied any smoking or alcohol history on admission). denies: smoking, alcohol abuse, prescription drug abuse , IV drug use Family history: hypertension (per chart review) Medications and Allergies Allergies Allergy/AdvReac Type Severity Reaction Status Date / Time No Known Allergies Allergy Verified 04/14/15 06:02 Home Medications Medication Instructions Recorded Confirmed Last Taken Type Acetaminophen [Tylenol Arthritis] 650 mg PO QID PRN #30 tablet.er 02/15/1609/12 Unknown Rx Albuterol Sulfate [Proventil HFA] 6.7 gm INHALATION Q4-6H 02/15/16 09/12/16 History Insulin Glargine [Lantus VIAL] 30 units SQ QHS 02/15/16 09/12/16 02/15/16 History Clonidine HCl [Catapres] 0.3 mg PO TID #90 tablet 06/15/16 09/12/16 Unknown Rx Lisinopril [Zestril] 40 mg PO BID #60 tablet 06/15/16 09/12/16 Unknown Rx Polyethylene Glycol 3350 [Miralax 17 gm PO QDAY PRN #10 packet 06/15/16 Unknown Rx 3350] Albuterol 2 inhalation INHALATION Q4HR PRN 09/12/16 09/12/16 Unknown History AtorvaSTATin [Lipitor] 20 mg PO QHS 09/12/16 09/12/16 Unknown History Flovent 110 MCG/PUFF HFA 1 inhalation INHALATION QHS 09/12/16 09/12/16 Unknown History Furosemide [Lasix] 20 mg PO QDAY 09/12/16 09/12/16 Unknown History HumaLOG VIAL 45 units SUB-Q TID 09/12/16 09/12/16 Unknown History Insulin Aspart [NovoLOG Flexpen] 30 units SUB-Q TID MDD 30 Units 09/12/16 Unknown History Labetalol HCl 300 mg PO BID 09/12/16 09/12/16 Unknown History Spironolactone [Aldactone] 25 mg PO QDAY 09/12/16 09/12/16 Unknown History hydrALAZINE [Apresoline] 25 mg PO BID 09/12/16 09/12/16 Unknown History Active Meds: Active Medications Lipase/Protease/Amylase (Mary Reza 10,500 Unit) 1 each FEEDTUBE PRN PRN PRN Reason: For Clogged Feeding Tube Aspirin (Aspirin) 325 mg PO QDAY AGUSTIN Last Admin: 10/06/16 18:38 Dose: Not Given Atorvastatin Calcium (Lipitor) 40 mg PO QHS AGUSTIN Last Admin: 10/06/16 22:40 Dose: Not Given Epoetin Mariusz (Epogen) 20,000 unit IV KERWIN PRN PRN Reason: hemodialysis Last Admin: 10/04/16 13:24 Dose: 20,000 unit Heparin Sodium (Porcine) (Heparin) 5,000 unit IV KERWIN PRN PRN Reason: hemodialysis Last Admin: 10/06/16 14:51 Dose: 5,000 unit Hydralazine HCl (Apresoline) 10 mg IV Q6H PRN PRN Reason: SBP > 160 Last Admin: 10/06/16 10:40 Dose: 10 mg Hydromorphone HCl (Dilaudid) 0.5 mg IV Q10MIN PRN PRN Reason: Pain , Severe (7-10) Stop: 10/08/16 18:59 Last Admin: 10/05/16 19:10 Dose: 0.5 mg Hydrophilic Ointment (Vaseline Lip Therapy) 1 applic TP Q2HR PRN PRN Reason: Dry Lips Last Admin: 09/17/16 22:20 Dose: 1 applic Metronidazole (Flagyl 500 Mg/100 Ml) 500 mg in 100 mls @ 100 mls/hr IV Q8H AGUSTIN Stop: 10/14/16 07:59 Last Admin: 10/06/16 15:45 Dose: 100 mls/hr Micafungin Sodium 100 mg/ (Sodium Chloride) 100 mls @ 100 mls/hr IV Q24H AGUSTIN PRN Reason: Protocol Stop: 10/14/16 23:59 Last Admin: 10/06/16 20:21 Dose: 100 mls/hr Sodium Chloride (Nacl 0.9%) 100 mls @ 999 mls/hr IV KERWIN PRN PRN Reason: Hypotension Sodium Chloride (Nacl 0.9%) 100 mls @ 999 mls/hr IV KERWIN PRN PRN Reason: Hypotension Amiodarone HCl 900 mg/ (Dextrose) 500 mls @ 16.66 mls/hr IV DIRECT AGUSTIN; 0.5 MG/MIN PRN Reason: Protocol Last Admin: 10/04/16 20:56 Dose: 0.5 mg/min, 16.66 mls/hr Amino Acids/Electrolytes/Dextrose (Tpn Adult) 2,016 mls @ 84 mls/hr IV DAILY@ 2000 AGUSTIN PRN Reason: Protocol Stop: 10/07/16 19:59 Last Admin: 10/06/16 19:49 Dose: 84 mls/hr Insulin Human Regular (Novolin R) 0 units SUB-Q Q6HR AGUSTIN PRN Reason: Protocol Last Admin: 10/06/16 18:38 Dose: Not Given Labetalol HCl (Normodyne) 20 mg IV Q4H PRN PRN Reason: For BP >160/100 Last Admin: 09/21/16 15:26 Dose: 20 mg Metoprolol Tartrate (Lopressor) 2.5 mg IV Q4H PRN PRN Reason: HR >130 Last Admin: 10/01/16 01:50 Dose: 2.5 mg Multi-Ingred Cream/Lotion/Oil/Oint (Artificial Tears Ophth Oint) 1 applic OU Q4HR PRN PRN Reason: Dry Eye(s) Ondansetron HCl (Zofran) 4 mg IV Q8H PRN PRN Reason: N/V unrelieved by Shelly Last Admin: 09/22/16 09:43 Dose: 4 mg Pantoprazole Sodium (Protonix) 40 mg IV BID [facility] Last Admin: 10/06/16 22:41 Dose: 40 mg Simple Syrup (Simple Syrup) 30 ml FEEDTUBE PRN PRN PRN Reason: Hypoglycemia Simple Syrup (Simple Syrup) 15 ml FEEDTUBE PRN PRN PRN Reason: Hypoglycemia Sodium Bicarbonate (Sodium Bicarbonate) 325 mg FEEDTUBE PRN PRN PRN Reason: For Clogged Feeding Tube Sodium Chloride (Nacl 0.9% 500 Ml) 1 ml IV DIRECT [facility] Last Admin: 09/16/16 16:43 Dose: 1 ml Sodium Chloride (Sodium Chloride Flush Syringe 10 Ml) 10 ml IV PRN PRN PRN Reason: LINE FLUSH Vancomycin HCl (Vancomycin Po) 250 mg FEEDTUBE Q6HR [facility] Stop: 10/14/16 18:59 Last Admin: 10/06/16 18:38 Dose: Not Given Physical Examination - Physical Exam Narrative exam: General appearance: Alert, alert, non verbal, on the vent via trach Eyes: anicteric sclerae, moist conjunctivae; PERRLA HENT: Atraumatic; oropharynx limited; Normal external ears. Neck: +trach in place; supple, no thyromegaly or lymphadenopathy Lungs: coarse BS bilateral CV: tachycardic Abdomen: Soft, non-tender, +drain with pradip wound erythema Extremities: +peripheral edema no extremity lymphadenopathy Skin: Normal temperature, turgor and texture; no rash, ulcers or subcutaneous nodules Psych: Anxious. Neuro: alert non verbal on the vent. Lines: left arm PICC - Constitutional Vitals: Vital Signs Temp Pulse Resp BP Pulse Ox 98.8 F 102 H 16 159/82 99 10/07/16 08:00 10/07/16 09:00 10/07/16 09:00 10/07/16 09:00 10/07/16 09:00 Temperature -Last 24 Hours Temperature 98.8 F Temperature 97.6 F Temperature 101.1 F Temperature 101.1 F Temperature 98.4 F Temperature 98.4 F Temperature 99.6 F Temperature 99.6 F Temperature 99.2 F Results - Labs CBC & Chem 7: 10/07/16 05:00 10/07/16 10:00 Labs: Abnormal lab results 10/05/16 10/06/16 10/06/16 Range/Units 15:50 11:52 18:34 WBC (4.5-11.0) K/mm3 RBC (3.65-5.03) M/mm3 Hgb (10.1-14.3) gm/dl Hct (30.3-42.9) % MCH (28-32) pg MCHC (30-34) % RDW (13.2-15.2) % Plt Count (140-440) K/mm3 Lymphocytes % (Manual) (13.4-35.0) % Nucleated RBC % (0.0-0.9) % Seg Neutrophils # Man (1.8-7.7) K/mm3 POC Glucose 116 H 129 H (70-105) Crossmatch See Detail 10/07/16 Range/Units 05:00 WBC 17.0 H (4.5-11.0) K/mm3 RBC 2.68 L (3.65-5.03) M/mm3 Hgb 7.3 L (10.1-14.3) gm/dl Hct 25.3 L (30.3-42.9) % MCH 27 L (28-32) pg MCHC 29 L (30-34) % RDW 19.6 H (13.2-15.2) % Plt Count 74 L (140-440) K/mm3 Lymphocytes % (Manual) 12.0 L (13.4-35.0) % Nucleated RBC % 4.0 H (0.0-0.9) % Seg Neutrophils # Man 10.7 H (1.8-7.7) K/mm3 POC Glucose (70-105) Crossmatch - Imaging and Cardiology CT scan - abdomen: report reviewed (dilodged PEG, enteritis, colitis) Assessment and Plan Assessment: 1) Recurrent Sepsis: not present on admission, manifested by fever, leukocytosis and tachycardia. Current sepsis etiology - peritonitis from gastric perforation. Initial sepsis etiology - presumed aspiration pneumonia, and another septic episode on 09/23 from Candidemia. 2) Peritonitis: from gastric perforation from dislodged PEG with significant ascites -S/P exlap, repair of gastric perforation with wedge gastrectomy, abdominal washout, drain placement on 10/05. 3) Candidemia: -Blood cultures positive for Silvia albicans on 09/23 -Blood cultures negative on 09/25 -Source ? gastric perf (PEG placed on 09/20) +/- TPN +/- central lines -TTE negative for vegetations 4) Initial presumed aspiration pneumonia 5) Presumed UTI: urine cx 09/23 multiple species 6) Respiratory failure s/p trach 7) Recent CVAleft MCA CVA 8) Uncontrolled HTN 9) Acute on CKD Plan: -check TTE to r/o endocarditis in view of Candidemia and recurrent fever -repeat blood cultures, urine culture and tracheal aspirate cultures -check procalcitonin, C-reactive protein (CRP) -stop flagyl, micafungin, PO vancomycin -start zosyn to cover peritonitis and fluconazole to cover Silvia albicans -as possible exchange gutierrez +/- PICC/central lines if it has not been done since 09/23 (in view of candidemia) -risk for nosocomial infections Thank you Dr Mona Brown for your consultation, will follow up with you. Pauline Carias MD Infectious Diseases Specialist [facility] M [phone] O [phone]
[2016-10-07] MEDS: FLAGYL 500 MG/100 ML 500 MG/100 ML BAG IV SCH ×2 (10:15→10:25)
[2016-10-07] MEDS: HumuLIN R SUB-Q SCH ×5 (10:16→18:13)
[2016-10-07] MEDS: VANCOMYCIN PO FEEDTUBE SCH ×2 (10:16→10:24)
[2016-10-07] MEDS: ASPIRIN PO SCH (10:16)
[2016-10-07 10:33] LABS: BUN/Creatinine Ratio 16.29; Calcium 7.4 mg/dL (8.4-10.2)
[2016-10-07] MEDS: APRESOLINE IV PRN (10:43)
[2016-10-07] MEDS: PROTONIX IV SCH ×2 (10:43→23:40)
--- NOTE | 2016-10-07 10:44 | Progress Note ---
Subjective Principal diagnosis: Acute resp failure on MVS; S/P Acute CVA; Acute Encephalopathy; JUANITA Interval history: Patient was evaluated today for follow-up on multiple renal related issues, time of evaluation 2 PM Events of this hospitalization were noted Patient does not appear to be any acute distress Vital labs intake and output medications were reviewed Current medications: Reviewed Social history:Reviewed Family history: Reviewed HEENT: No uremic order oral mucosa moist Neck: Supple without any thyromegaly mass or JVD Chest: Clear to auscultation occasional basilar crackles posteriorly Heart: Regular rate and rhythm S1 and S2 heard no S3-S4 Abdomen: Soft nontender no voluntary guarding rigidity or rebound Extremity: Dry skin minimal edema Psychiatry: No agitation and aggression noted Assessment and plan Acute on chronic renal failure; continue to monitor renal function for now, avoid any nephrotoxic medication patient was initiated on renal replacement therapy, Her urine output has been low to negligible today Check with the nurse for postvoid bladder volume estimation to make sure she is not not have any evidence of obstruction If she still remains an earache tomorrow and renal function does not improve may consider dialysis creatinine clearance was 15 last noted Accelerated hypertension: Needs monitoring and adjustment of medications as needed Admitted with acute CVA, continues with supportive care ultrasonogram showed evidence of chronic kidney disease Hypokalemia to monitor and follow Altered mental status: Multifactorial Continue with supportive care Objective - Vital Signs Vital signs: Vital Signs - 12hr 10/06/16 10/06/16 10/06/16 23:00 23:30 23:44 Temperature Pulse Rate 109 H 111 H 114 H Respiratory 30 H 28 H 32 H Rate Blood Pressure 133/61 155/81 155/81 O2 Sat by Pulse 97 96 98 Oximetry O2 Sat by Pulse Oximetry [ Assessment] 10/07/16 10/07/16 10/07/16 00:00 00:20 00:30 Temperature 98.4 F Pulse Rate 114 H 96 H 111 H Respiratory 28 H 30 H Rate Blood Pressure 168/85 160/80 139/68 O2 Sat by Pulse 97 98 98 Oximetry O2 Sat by Pulse Oximetry [ Assessment] 10/07/16 10/07/16 10/07/16 00:47 01:00 01:30 Temperature 101.1 F H Pulse Rate 113 H 112 H Respiratory 32 H 29 H Rate Blood Pressure 160/80 143/77 O2 Sat by Pulse 98 98 Oximetry O2 Sat by Pulse Oximetry [ Assessment] 10/07/16 10/07/16 10/07/16 02:00 02:30 03:00 Temperature Pulse Rate 113 H 112 H 114 H Respiratory 31 H 30 H 21 Rate Blood Pressure 143/77 153/74 153/74 O2 Sat by Pulse 98 99 99 Oximetry O2 Sat by Pulse 100 Oximetry [ Assessment] 10/07/16 10/07/16 10/07/16 03:30 04:00 04:20 Temperature 101.1 F H Pulse Rate 112 H 102 H 101 H Respiratory 23 27 H Rate Blood Pressure 212/95 126/64 118/73 O2 Sat by Pulse 98 99 100 Oximetry O2 Sat by Pulse Oximetry [ Assessment] 10/07/16 10/07/16 10/07/16 04:30 04:55 05:00 Temperature 97.6 F Pulse Rate 103 H 108 H Respiratory 28 H 31 H Rate Blood Pressure 118/73 118/73 O2 Sat by Pulse 100 100 Oximetry O2 Sat by Pulse Oximetry [ Assessment] 10/07/16 10/07/16 10/07/16 05:30 06:00 06:30 Temperature Pulse Rate 99 H 94 H 88 Respiratory 29 H 28 H 28 H Rate Blood Pressure 100/50 101/56 97/47 O2 Sat by Pulse 95 97 88 Oximetry O2 Sat by Pulse Oximetry [ Assessment] 10/07/16 10/07/16 10/07/16 07:00 07:15 07:30 Temperature Pulse Rate 94 H 104 H 93 H Respiratory 26 H 29 H Rate Blood Pressure 91/43 159/82 79/36 O2 Sat by Pulse 97 99 99 Oximetry O2 Sat by Pulse Oximetry [ Assessment] 10/07/16 10/07/16 10/07/16 08:00 08:30 09:00 Temperature 98.8 F Pulse Rate 109 H 104 H 102 H Respiratory 32 H 21 16 Rate Blood Pressure 79/36 156/86 159/82 O2 Sat by Pulse 87 98 99 Oximetry O2 Sat by Pulse Oximetry [ Assessment] 10/07/16 10:43 Temperature Pulse Rate 101 H Respiratory Rate Blood Pressure 210/100 O2 Sat by Pulse Oximetry O2 Sat by Pulse Oximetry [ Assessment] - Lab 10/07/16 05:00 10/07/16 10:00 Most recent lab results Calcium 7.4 mg/dL (8.4-10.2) L 10/07/16 10:00 Phosphorus TNR 10/07/16 05:00 Magnesium TNR 10/07/16 05:00 Urine Creatinine 54.8 mg/dL (0.1-20.0) H 09/21/16 12:00 Urine Sodium 36 mEq/L 09/16/16 19:19 Urine Total Protein 16 mg/dL (5-11.8) H 09/16/16 19:19
--- NOTE | 2016-10-07 12:21 | Progress Note ---
Assessment and Plan (1) Acute respiratory failure with hypoxia Current Visit: Yes Status: Acute Plan to address problem: - continue aspiration precautions / address VAP bundles - continue to wean oxygen for MAP > 94% - continue bronchodilators and pulmonary toilet - s/p tracheostomy - continue daily PSV trials as tolerated (2) Acute CVA (cerebrovascular accident) Current Visit: Yes Status: Acute Plan to address problem: - out of tpA window (initially stopped due to uncontrolled HTN) - Left MCA teritory stroke with some midline shift on last CT - seen by neurology and prognosis for recovery of mental status guarded to poor - optimizing secondary prevention modalities now (BP, lipid anti-platelet therapy) - off systemic steroids now (started earlier for edema) (3) Hypertensive emergency Current Visit: Yes Status: Acute Plan to address problem: - stopped all antihypertensives while septic - following cllinically (4) Obesity (BMI 35.0-39.9 without comorbidity) Current Visit: Yes Status: Chronic Plan to address problem: - nutrition consult placed for enteral formulation - follow clinically (5) Type 2 diabetes mellitus Current Visit: Yes Status: Chronic Qualifiers: Diabetes mellitus complication status: D Diabetes mellitus complication detail: D Diabetic retinopathy severity: D Proliferative retinopathy type: P Diabetes mellitus macular edema: D Diabetes mellitus buttermaker continuous churn insulin use : D Laterality: L Chronic kidney disease stage: C Plan to address problem: - continue SSI - discontinued lantus re: hypoglycemia (6) Leukocytosis (leucocytosis) Current Visit: Yes Status: Acute Qualifiers: Leukocytosis type: leukemoid reaction Qualified Code(s): D72.823 - Leukemoid reaction Plan to address problem: - continue cancidas and de-escalate per ID recs - clinically improved (7) Agitation Current Visit: Yes Status: Acute Plan to address problem: - prn sedation / analgesia - tapered off seroquel for now (8) Atrial fibrillation Current Visit: Yes Status: Acute Qualifiers: Atrial fibrillation type: A Plan to address problem: - failed cardioversion earlier - cardiology evaluation ongoing - back in A-fib - continue amiodarone drip (change to p.o. once tolerating enterally) (9) JUANITA (acute kidney injury) Current Visit: Yes Status: Acute Plan to address problem: - on Dialysis now - continue HD/UF per nephrology recommendations - none today (10) Pyrexia of unknown origin Current Visit: Yes Status: Acute Plan to address problem: - dopplers negative for DVT - continue to treat with AB;'s empirically - continue micafungin (11) Severe sepsis Current Visit: Yes Status: Acute Plan to address problem: - resume vasopressors for MAP < 60mmHg not responsive to volume - all central vascular access has been discontinued after fungemia reported - care plan formulated with ID input - BC's from 09/27/16 growing in 1of 2 but still no ID yet - continue micafungin per ID recs and stop date - wound care nurse also managing back wounds - clinically stable and hemodynamically improved (12) Emesis Current Visit: Yes Status: Acute Qualifiers: Vomiting type: V Vomiting Intractability: V Nausea presence: N Plan to address problem: - s/p surgical repair of gastric perforation - continue TPN for now (13) Discharge planning issues Current Visit: Yes Status: Acute Plan to address problem: - she remains critically ill on life sustaining interventions including MVS and at risk for further acute deterioration including .....30' CCT ....buttermaker continuous churn prognosis is guarded Subjective Date of service: 10/07/16 Principal diagnosis: Acute resp failure on MVS; S/P Acute CVA; Acute Encephalopathy; JUANITA Interval history: Seen and examined at bedside; 24 hour events reviewed; nursing and respiratory care staff consulted; no adverse overnight events reported to me; remainson MVS ; tolerating PSV albeit tenuously at times; no emesis or overt aspiration; JUAN drain in place; no high grade fevers and remains off vasopressors Objective Vital Signs - 12hr 10/07/16 10/07/16 10/07/16 00:30 00:47 01:00 Temperature 101.1 F H Pulse Rate 111 H 113 H Respiratory 30 H 32 H Rate Blood Pressure 139/68 160/80 O2 Sat by Pulse 98 98 Oximetry O2 Sat by Pulse Oximetry [ Assessment] 10/07/16 10/07/16 10/07/16 01:30 02:00 02:30 Temperature Pulse Rate 112 H 113 H 112 H Respiratory 29 H 31 H 30 H Rate Blood Pressure 143/77 143/77 153/74 O2 Sat by Pulse 98 98 99 Oximetry O2 Sat by Pulse Oximetry [ Assessment] 10/07/16 10/07/16 10/07/16 03:00 03:30 04:00 Temperature 101.1 F H Pulse Rate 114 H 112 H 102 H Respiratory 21 23 27 H Rate Blood Pressure 153/74 212/95 126/64 O2 Sat by Pulse 99 98 99 Oximetry O2 Sat by Pulse 100 Oximetry [ Assessment] 10/07/16 10/07/16 10/07/16 04:20 04:30 04:55 Temperature 97.6 F Pulse Rate 101 H 103 H Respiratory 28 H Rate Blood Pressure 118/73 118/73 O2 Sat by Pulse 100 100 Oximetry O2 Sat by Pulse Oximetry [ Assessment] 10/07/16 10/07/16 10/07/16 05:00 05:30 06:00 Temperature Pulse Rate 108 H 99 H 94 H Respiratory 31 H 29 H 28 H Rate Blood Pressure 118/73 100/50 101/56 O2 Sat by Pulse 100 95 97 Oximetry O2 Sat by Pulse Oximetry [ Assessment] 10/07/16 10/07/16 10/07/16 06:30 07:00 07:15 Temperature Pulse Rate 88 94 H 104 H Respiratory 28 H 26 H Rate Blood Pressure 97/47 91/43 159/82 O2 Sat by Pulse 88 97 99 Oximetry O2 Sat by Pulse Oximetry [ Assessment] 10/07/16 10/07/16 10/07/16 07:30 08:00 08:30 Temperature 98.8 F Pulse Rate 93 H 109 H 104 H Respiratory 29 H 32 H 21 Rate Blood Pressure 79/36 79/36 156/86 O2 Sat by Pulse 99 87 98 Oximetry O2 Sat by Pulse Oximetry [ Assessment] 10/07/16 10/07/16 10/07/16 09:00 09:30 10:00 Temperature Pulse Rate 102 H 109 H 104 H Respiratory 16 25 H 28 H Rate Blood Pressure 159/82 193/99 170/88 O2 Sat by Pulse 99 90 99 Oximetry O2 Sat by Pulse Oximetry [ Assessment] 10/07/16 10/07/16 10/07/16 10:30 10:43 11:00 Temperature Pulse Rate 107 H 101 H 111 H Respiratory 21 34 H Rate Blood Pressure 210/100 210/100 186/82 O2 Sat by Pulse 99 99 Oximetry O2 Sat by Pulse Oximetry [ Assessment] 10/07/16 10/07/16 11:30 12:00 Temperature 98.7 F Pulse Rate 109 H Respiratory 24 Rate Blood Pressure 177/78 O2 Sat by Pulse 99 Oximetry O2 Sat by Pulse Oximetry [ Assessment] Constitutional: no acute distress, other (grimaces with moving) Eyes: non-icteric, other (tracheostomy tube in midline of neck) ENT: oropharynx moist Neck: supple, no lymphadenopathy Effort: mildly labored Ascultation: Bilateral: rales Cardiovascular: regular rate and rhythm Gastrointestinal: hypoactive bowel sounds, soft, non-tender, non-distended Integumentary: other (erythema to skin of back with some healing areas; no obvious TEN's features) Extremities: no cyanosis, no edema, pulses normal, no ischemia or petechiae Neurologic: pupils equal and round, other (sedated) Psychiatric: other (unable to assess) CBC and BMP: 10/08/16 04:30 10/08/16 04:00 ABG, PT/INR, D-dimer: ABG POC ABG pH 7.310 (7.35-7.45) L 10/06/16 04:53 POC ABG pCO2 49.0 (35-45) H 10/06/16 04:53 POC ABG pO2 84 (80-105) 10/06/16 04:53 POC ABG HCO3 24.7 10/06/16 04:53 POC ABG Total CO2 26 10/06/16 04:53 POC ABG O2 Sat 95 10/06/16 04:53 PT/INR, D-dimer PT 13.8 Sec. (12.2-14.9) 09/15/16 05:00 INR 1.01 (0.87-1.13) 09/15/16 05:00 Abnormal lab findings: Abnormal Labs 09/03/16 09/03/16 09/03/16 12:12 15:07 16:20 WBC RBC Hgb Hct MCV MCH MCHC RDW Plt Count Lymph % (Auto) [place] % (Auto) Lymph # [place] # Seg Neutrophils % Seg Neuts % (Manual) Lymphocytes % (Manual) Monocytes % (Manual) Eosinophils % (Manual) Basophils % (Manual) Nucleated RBC % Seg Neutrophils # Seg Neutrophils # Man Lymphocytes # (Manual) Monocytes # (Manual) Eosinophils # (Manual) Fibrinogen dRVVT Confirm Interp Factor V Activity POC ABG pH 7.452 H POC ABG pCO2 POC ABG pO2 Sodium Potassium Chloride Carbon Dioxide BUN Creatinine Glucose POC Glucose 178 H Lactic Acid Calcium Phosphorus 2.20 L Magnesium 1.60 L Direct Bilirubin ALT Alkaline Phosphatase Troponin T C-Reactive Protein Total Protein Albumin Triglycerides Cholesterol LDL Cholesterol Direct HDL Cholesterol Urine WBC (Auto) Urine Creatinine Urine Total Protein Vancomycin Trough Rheumatoid Factor Complement C4 Crossmatch 09/03/16 09/03/16 09/03/16 17:57 17:58 23:50 WBC RBC Hgb Hct MCV MCH MCHC RDW Plt Count Lymph % (Auto) [place] % (Auto) Lymph # [place] # Seg Neutrophils % Seg Neuts % (Manual) Lymphocytes % (Manual) Monocytes % (Manual) Eosinophils % (Manual) Basophils % (Manual) Nucleated RBC % Seg Neutrophils # Seg Neutrophils # Man Lymphocytes # (Manual) Monocytes # (Manual) Eosinophils # (Manual) Fibrinogen dRVVT Confirm Interp Factor V Activity POC ABG pH POC ABG pCO2 POC ABG pO2 Sodium Potassium Chloride Carbon Dioxide BUN Creatinine Glucose POC Glucose 162 H 145 H Lactic Acid Calcium Phosphorus 2.30 L Magnesium Direct Bilirubin ALT Alkaline Phosphatase Troponin T C-Reactive Protein Total Protein Albumin Triglycerides Cholesterol LDL Cholesterol Direct HDL Cholesterol Urine WBC (Auto) Urine Creatinine Urine Total Protein Vancomycin Trough Rheumatoid Factor Complement C4 Crossmatch 09/04/16 09/04/16 09/04/16 03:31 03:31 05:42 WBC RBC Hgb 9.7 L D Hct MCV 72 L MCH 23 L MCHC RDW 17.5 H Plt Count Lymph % (Auto) 11.1 L [place] % (Auto) Lymph # [place] # Seg Neutrophils % 84.3 H Seg Neuts % (Manual) Lymphocytes % (Manual) Monocytes % (Manual) Eosinophils % (Manual) Basophils % (Manual) Nucleated RBC % Seg Neutrophils # 8.9 H Seg Neutrophils # Man Lymphocytes # (Manual) Monocytes # (Manual) Eosinophils # (Manual) Fibrinogen dRVVT Confirm Interp Factor V Activity POC ABG pH POC ABG pCO2 POC ABG pO2 Sodium 135 L Potassium 2.9 L* Chloride 97.2 L Carbon Dioxide 19 L BUN Creatinine 1.7 H Glucose 170 H POC Glucose 152 H Lactic Acid Calcium Phosphorus Magnesium Direct Bilirubin ALT Alkaline Phosphatase Troponin T C-Reactive Protein Total Protein Albumin Triglycerides 160 H Cholesterol LDL Cholesterol Direct HDL Cholesterol 31 L Urine WBC (Auto) Urine Creatinine Urine Total Protein Vancomycin Trough Rheumatoid Factor Complement C4 Crossmatch 09/04/16 09/04/16 09/04/16 11:34 17:46 23:29 WBC RBC Hgb Hct MCV MCH MCHC RDW Plt Count Lymph % (Auto) [place] % (Auto) Lymph # [place] # Seg Neutrophils % Seg Neuts % (Manual) Lymphocytes % (Manual) Monocytes % (Manual) Eosinophils % (Manual) Basophils % (Manual) Nucleated RBC % Seg Neutrophils # Seg Neutrophils # Man Lymphocytes # (Manual) Monocytes # (Manual) Eosinophils # (Manual) Fibrinogen dRVVT Confirm Interp Factor V Activity POC ABG pH POC ABG pCO2 POC ABG pO2 Sodium Potassium Chloride Carbon Dioxide BUN Creatinine Glucose POC Glucose 165 H 210 H 139 H Lactic Acid Calcium Phosphorus Magnesium Direct Bilirubin ALT Alkaline Phosphatase Troponin T C-Reactive Protein Total Protein Albumin Triglycerides Cholesterol LDL Cholesterol Direct HDL Cholesterol Urine WBC (Auto) Urine Creatinine Urine Total Protein Vancomycin Trough Rheumatoid Factor Complement C4 Crossmatch 09/05/16 09/05/16 09/05/16 04:05 04:05 05:38 WBC RBC Hgb Hct MCV 76 L D MCH 23 L MCHC RDW 17.8 H Plt Count Lymph % (Auto) [place] % (Auto) Lymph # [place] # Seg Neutrophils % Seg Neuts % (Manual) Lymphocytes % (Manual) Monocytes % (Manual) Eosinophils % (Manual) Basophils % (Manual) Nucleated RBC % Seg Neutrophils # Seg Neutrophils # Man Lymphocytes # (Manual) Monocytes # (Manual) Eosinophils # (Manual) Fibrinogen dRVVT Confirm Interp Factor V Activity POC ABG pH POC ABG pCO2 POC ABG pO2 Sodium 134 L Potassium Chloride Carbon Dioxide 18 L BUN Creatinine 1.8 H Glucose 192 H POC Glucose 175 H Lactic Acid Calcium Phosphorus Magnesium Direct Bilirubin ALT Alkaline Phosphatase Troponin T C-Reactive Protein Total Protein Albumin Triglycerides Cholesterol LDL Cholesterol Direct HDL Cholesterol Urine WBC (Auto) Urine Creatinine Urine Total Protein Vancomycin Trough Rheumatoid Factor Complement C4 Crossmatch 09/05/16 09/05/16 09/05/16 11:38 17:48 23:22 WBC RBC Hgb Hct MCV MCH MCHC RDW Plt Count Lymph % (Auto) [place] % (Auto) Lymph # [place] # Seg Neutrophils % Seg Neuts % (Manual) Lymphocytes % (Manual) Monocytes % (Manual) Eosinophils % (Manual) Basophils % (Manual) Nucleated RBC % Seg Neutrophils # Seg Neutrophils # Man Lymphocytes # (Manual) Monocytes # (Manual) Eosinophils # (Manual) Fibrinogen dRVVT Confirm Interp Factor V Activity POC ABG pH POC ABG pCO2 POC ABG pO2 Sodium Potassium Chloride Carbon Dioxide BUN Creatinine Glucose POC Glucose 164 H 186 H 195 H Lactic Acid Calcium Phosphorus Magnesium Direct Bilirubin ALT Alkaline Phosphatase Troponin T C-Reactive Protein Total Protein Albumin Triglycerides Cholesterol LDL Cholesterol Direct HDL Cholesterol Urine WBC (Auto) Urine Creatinine Urine Total Protein Vancomycin Trough Rheumatoid Factor Complement C4 Crossmatch 09/06/16 09/06/16 09/06/16 04:12 05:59 07:32 WBC RBC Hgb Hct MCV MCH MCHC RDW Plt Count Lymph % (Auto) [place] % (Auto) Lymph # [place] # Seg Neutrophils % Seg Neuts % (Manual) Lymphocytes % (Manual) Monocytes % (Manual) Eosinophils % (Manual) Basophils % (Manual) Nucleated RBC % Seg Neutrophils # Seg Neutrophils # Man Lymphocytes # (Manual) Monocytes # (Manual) Eosinophils # (Manual) Fibrinogen dRVVT Confirm Interp Factor V Activity POC ABG pH 7.514 H POC ABG pCO2 29.1 L POC ABG pO2 72 L Sodium 133 L Potassium 3.4 L Chloride 94.9 L Carbon Dioxide 19 L BUN 30 H Creatinine 2.1 H Glucose 139 H POC Glucose 146 H Lactic Acid Calcium Phosphorus Magnesium Direct Bilirubin ALT Alkaline Phosphatase Troponin T C-Reactive Protein Total Protein Albumin Triglycerides Cholesterol LDL Cholesterol Direct HDL Cholesterol Urine WBC (Auto) Urine Creatinine Urine Total Protein Vancomycin Trough Rheumatoid Factor Complement C4 Crossmatch 09/06/16 09/06/16 09/06/16 11:57 17:58 19:02 WBC RBC Hgb Hct MCV MCH MCHC RDW Plt Count Lymph % (Auto) [place] % (Auto) Lymph # [place] # Seg Neutrophils % Seg Neuts % (Manual) Lymphocytes % (Manual) Monocytes % (Manual) Eosinophils % (Manual) Basophils % (Manual) Nucleated RBC % Seg Neutrophils # Seg Neutrophils # Man Lymphocytes # (Manual) Monocytes # (Manual) Eosinophils # (Manual) Fibrinogen dRVVT Confirm Interp Factor V Activity POC ABG pH 7.465 H POC ABG pCO2 32.0 L POC ABG pO2 Sodium Potassium Chloride Carbon Dioxide BUN Creatinine Glucose POC Glucose 165 H 160 H Lactic Acid Calcium Phosphorus Magnesium Direct Bilirubin ALT Alkaline Phosphatase Troponin T C-Reactive Protein Total Protein Albumin Triglycerides Cholesterol LDL Cholesterol Direct HDL Cholesterol Urine WBC (Auto) Urine Creatinine Urine Total Protein Vancomycin Trough Rheumatoid Factor Complement C4 Crossmatch 09/06/16 09/07/16 09/07/16 23:45 02:47 02:47 WBC RBC Hgb Hct MCV MCH MCHC RDW Plt Count Lymph % (Auto) [place] % (Auto) Lymph # [place] # Seg Neutrophils % Seg Neuts % (Manual) Lymphocytes % (Manual) Monocytes % (Manual) Eosinophils % (Manual) Basophils % (Manual) Nucleated RBC % Seg Neutrophils # Seg Neutrophils # Man Lymphocytes # (Manual) Monocytes # (Manual) Eosinophils # (Manual) Fibrinogen dRVVT Confirm Interp Factor V Activity POC ABG pH POC ABG pCO2 POC ABG pO2 Sodium Potassium Chloride Carbon Dioxide BUN Creatinine Glucose POC Glucose 204 H Lactic Acid Calcium Phosphorus Magnesium Direct Bilirubin ALT Alkaline Phosphatase Troponin T C-Reactive Protein Total Protein Albumin Triglycerides Cholesterol LDL Cholesterol Direct HDL Cholesterol Urine WBC (Auto) 68.0 H Urine Creatinine 106.1 H Urine Total Protein Vancomycin Trough Rheumatoid Factor Complement C4 Crossmatch 09/07/16 09/07/16 09/07/16 04:50 06:19 06:39 WBC RBC Hgb Hct MCV MCH MCHC RDW Plt Count Lymph % (Auto) [place] % (Auto) Lymph # [place] # Seg Neutrophils % Seg Neuts % (Manual) Lymphocytes % (Manual) Monocytes % (Manual) Eosinophils % (Manual) Basophils % (Manual) Nucleated RBC % Seg Neutrophils # Seg Neutrophils # Man Lymphocytes # (Manual) Monocytes # (Manual) Eosinophils # (Manual) Fibrinogen dRVVT Confirm Interp Factor V Activity POC ABG pH 7.457 H POC ABG pCO2 32.1 L POC ABG pO2 76 L Sodium 132 L Potassium Chloride 94.7 L Carbon Dioxide BUN 53 H Creatinine 2.9 H Glucose 151 H POC Glucose 149 H Lactic Acid Calcium Phosphorus Magnesium Direct Bilirubin ALT Alkaline Phosphatase Troponin T C-Reactive Protein Total Protein Albumin Triglycerides Cholesterol LDL Cholesterol Direct HDL Cholesterol Urine WBC (Auto) Urine Creatinine Urine Total Protein Vancomycin Trough Rheumatoid Factor Complement C4 Crossmatch 09/07/16 09/07/16 09/07/16 09:20 11:43 11:43 WBC 19.4 H RBC Hgb 8.3 L Hct 26.4 L D MCV 72 L D MCH 22 L MCHC RDW 17.9 H Plt Count Lymph % (Auto) 8.5 L [place] % (Auto) Lymph # [place] # 1.0 H Seg Neutrophils % 85.8 H Seg Neuts % (Manual) Lymphocytes % (Manual) Monocytes % (Manual) Eosinophils % (Manual) Basophils % (Manual) Nucleated RBC % Seg Neutrophils # 16.6 H Seg Neutrophils # Man Lymphocytes # (Manual) Monocytes # (Manual) Eosinophils # (Manual) Fibrinogen dRVVT Confirm Interp Factor V Activity POC ABG pH POC ABG pCO2 POC ABG pO2 Sodium 134 L Potassium Chloride 97.2 L Carbon Dioxide 20 L BUN 58 H Creatinine 2.9 H Glucose 147 H POC Glucose Lactic Acid Calcium Phosphorus 2.40 L Magnesium 2.40 H Direct Bilirubin ALT Alkaline Phosphatase Troponin T C-Reactive Protein Total Protein 5.8 L Albumin 2.2 L Triglycerides Cholesterol LDL Cholesterol Direct HDL Cholesterol Urine WBC (Auto) Urine Creatinine Urine Total Protein Vancomycin Trough Rheumatoid Factor Complement C4 58 H Crossmatch 09/07/16 09/07/16 09/07/16 11:50 16:00 17:31 WBC RBC Hgb Hct MCV MCH MCHC RDW Plt Count Lymph % (Auto) [place] % (Auto) Lymph # [place] # Seg Neutrophils % Seg Neuts % (Manual) Lymphocytes % (Manual) Monocytes % (Manual) Eosinophils % (Manual) Basophils % (Manual) Nucleated RBC % Seg Neutrophils # Seg Neutrophils # Man Lymphocytes # (Manual) Monocytes # (Manual) Eosinophils # (Manual) Fibrinogen dRVVT Confirm Interp Factor V Activity POC ABG pH POC ABG pCO2 POC ABG pO2 158 H Sodium Potassium Chloride Carbon Dioxide BUN Creatinine Glucose POC Glucose 175 H Lactic Acid Calcium Phosphorus Magnesium Direct Bilirubin ALT Alkaline Phosphatase Troponin T C-Reactive Protein Total Protein Albumin Triglycerides Cholesterol LDL Cholesterol Direct HDL Cholesterol Urine WBC (Auto) Urine Creatinine 66.3 H Urine Total Protein Vancomycin Trough Rheumatoid Factor Complement C4 Crossmatch 09/07/16 09/08/16 09/08/16 23:50 05:46 06:18 WBC 17.8 H RBC 3.58 L Hgb 8.1 L Hct 25.5 L MCV 71 L MCH 23 L MCHC RDW 18.4 H Plt Count Lymph % (Auto) [place] % (Auto) Lymph # [place] # Seg Neutrophils % Seg Neuts % (Manual) 92.0 H Lymphocytes % (Manual) 6.0 L Monocytes % (Manual) Eosinophils % (Manual) Basophils % (Manual) Nucleated RBC % Seg Neutrophils # Seg Neutrophils # Man 16.4 H Lymphocytes # (Manual) 1.1 L Monocytes # (Manual) Eosinophils # (Manual) Fibrinogen dRVVT Confirm Interp Factor V Activity POC ABG pH POC ABG pCO2 34.3 L POC ABG pO2 71 L Sodium Potassium Chloride Carbon Dioxide BUN Creatinine Glucose POC Glucose 216 H Lactic Acid Calcium Phosphorus Magnesium Direct Bilirubin ALT Alkaline Phosphatase Troponin T C-Reactive Protein Total Protein Albumin Triglycerides Cholesterol LDL Cholesterol Direct HDL Cholesterol Urine WBC (Auto) Urine Creatinine Urine Total Protein Vancomycin Trough Rheumatoid Factor Complement C4 Crossmatch 09/08/16 09/08/16 09/08/16 06:18 06:51 10:55 WBC RBC Hgb Hct MCV MCH MCHC RDW Plt Count Lymph % (Auto) [place] % (Auto) Lymph # [place] # Seg Neutrophils % Seg Neuts % (Manual) Lymphocytes % (Manual) Monocytes % (Manual) Eosinophils % (Manual) Basophils % (Manual) Nucleated RBC % Seg Neutrophils # Seg Neutrophils # Man Lymphocytes # (Manual) Monocytes # (Manual) Eosinophils # (Manual) Fibrinogen dRVVT Confirm Interp Factor V Activity POC ABG pH POC ABG pCO2 POC ABG pO2 Sodium 133 L Potassium Chloride 96.9 L Carbon Dioxide 20 L BUN 63 H Creatinine 2.7 H Glucose 195 H POC Glucose 204 H 169 H Lactic Acid Calcium Phosphorus Magnesium Direct Bilirubin ALT Alkaline Phosphatase Troponin T C-Reactive Protein Total Protein Albumin Triglycerides Cholesterol LDL Cholesterol Direct HDL Cholesterol Urine WBC (Auto) Urine Creatinine Urine Total Protein Vancomycin Trough Rheumatoid Factor Complement C4 Crossmatch 09/08/16 09/08/16 09/08/16 11:48 11:48 11:48 WBC RBC Hgb Hct MCV MCH MCHC RDW Plt Count Lymph % (Auto) [place] % (Auto) Lymph # [place] # Seg Neutrophils % Seg Neuts % (Manual) Lymphocytes % (Manual) Monocytes % (Manual) Eosinophils % (Manual) Basophils % (Manual) Nucleated RBC % Seg Neutrophils # Seg Neutrophils # Man Lymphocytes # (Manual) Monocytes # (Manual) Eosinophils # (Manual) Fibrinogen 750 H dRVVT Confirm Interp Factor V Activity POC ABG pH POC ABG pCO2 POC ABG pO2 Sodium Potassium Chloride Carbon Dioxide BUN Creatinine Glucose POC Glucose Lactic Acid Calcium Phosphorus Magnesium Direct Bilirubin ALT Alkaline Phosphatase Troponin T C-Reactive Protein 15.70 H Total Protein Albumin Triglycerides Cholesterol LDL Cholesterol Direct HDL Cholesterol Urine WBC (Auto) Urine Creatinine Urine Total Protein Vancomycin Trough Rheumatoid Factor 24 H Complement C4 Crossmatch 09/08/16 09/08/16 09/09/16 15:35 18:25 00:24 WBC RBC Hgb Hct MCV MCH MCHC RDW Plt Count Lymph % (Auto) [place] % (Auto) Lymph # [place] # Seg Neutrophils % Seg Neuts % (Manual) Lymphocytes % (Manual) Monocytes % (Manual) Eosinophils % (Manual) Basophils % (Manual) Nucleated RBC % Seg Neutrophils # Seg Neutrophils # Man Lymphocytes # (Manual) Monocytes # (Manual) Eosinophils # (Manual) Fibrinogen dRVVT Confirm Interp Factor V Activity 182 H POC ABG pH POC ABG pCO2 POC ABG pO2 Sodium Potassium Chloride Carbon Dioxide BUN Creatinine Glucose POC Glucose 184 H 216 H Lactic Acid Calcium Phosphorus Magnesium Direct Bilirubin ALT Alkaline Phosphatase Troponin T C-Reactive Protein Total Protein Albumin Triglycerides Cholesterol LDL Cholesterol Direct HDL Cholesterol Urine WBC (Auto) Urine Creatinine Urine Total Protein Vancomycin Trough Rheumatoid Factor Complement C4 Crossmatch 09/09/16 09/09/16 09/09/16 03:00 03:00 04:04 WBC 27.9 H RBC Hgb 8.7 L Hct 28.1 L MCV 72 L MCH 22 L MCHC RDW 18.4 H Plt Count 485 H Lymph % (Auto) [place] % (Auto) Lymph # [place] # Seg Neutrophils % Seg Neuts % (Manual) 77.0 H Lymphocytes % (Manual) 9.0 L Monocytes % (Manual) Eosinophils % (Manual) Basophils % (Manual) Nucleated RBC % Seg Neutrophils # Seg Neutrophils # Man 21.5 H Lymphocytes # (Manual) Monocytes # (Manual) 2.0 H Eosinophils # (Manual) Fibrinogen dRVVT Confirm Interp Factor V Activity POC ABG pH POC ABG pCO2 POC ABG pO2 121 H Sodium 135 L Potassium Chloride 96.3 L Carbon Dioxide 21 L BUN 83 H Creatinine 3.0 H Glucose 135 H POC Glucose Lactic Acid Calcium Phosphorus Magnesium Direct Bilirubin ALT Alkaline Phosphatase Troponin T C-Reactive Protein Total Protein Albumin Triglycerides Cholesterol LDL Cholesterol Direct HDL Cholesterol Urine WBC (Auto) Urine Creatinine Urine Total Protein Vancomycin Trough Rheumatoid Factor Complement C4 Crossmatch 09/09/16 09/09/16 09/09/16 05:41 11:55 14:13 WBC RBC Hgb Hct MCV MCH MCHC RDW Plt Count Lymph % (Auto) [place] % (Auto) Lymph # [place] # Seg Neutrophils % Seg Neuts % (Manual) Lymphocytes % (Manual) Monocytes % (Manual) Eosinophils % (Manual) Basophils % (Manual) Nucleated RBC % Seg Neutrophils # Seg Neutrophils # Man Lymphocytes # (Manual) Monocytes # (Manual) Eosinophils # (Manual) Fibrinogen dRVVT Confirm Interp Factor V Activity POC ABG pH POC ABG pCO2 POC ABG pO2 Sodium Potassium Chloride Carbon Dioxide BUN Creatinine Glucose POC Glucose 155 H 186 H Lactic Acid Calcium Phosphorus Magnesium Direct Bilirubin ALT Alkaline Phosphatase Troponin T C-Reactive Protein Total Protein Albumin Triglycerides Cholesterol LDL Cholesterol Direct HDL Cholesterol Urine WBC (Auto) 25.0 H Urine Creatinine Urine Total Protein Vancomycin Trough Rheumatoid Factor Complement C4 Crossmatch 09/09/16 09/09/16 09/10/16 17:33 23:13 05:09 WBC RBC Hgb Hct MCV MCH MCHC RDW Plt Count Lymph % (Auto) [place] % (Auto) Lymph # [place] # Seg Neutrophils % Seg Neuts % (Manual) Lymphocytes % (Manual) Monocytes % (Manual) Eosinophils % (Manual) Basophils % (Manual) Nucleated RBC % Seg Neutrophils # Seg Neutrophils # Man Lymphocytes # (Manual) Monocytes # (Manual) Eosinophils # (Manual) Fibrinogen dRVVT Confirm Interp Factor V Activity POC ABG pH POC ABG pCO2 POC ABG pO2 74 L Sodium Potassium Chloride Carbon Dioxide BUN Creatinine Glucose POC Glucose 211 H 215 H Lactic Acid Calcium Phosphorus Magnesium Direct Bilirubin ALT Alkaline Phosphatase Troponin T C-Reactive Protein Total Protein Albumin Triglycerides Cholesterol LDL Cholesterol Direct HDL Cholesterol Urine WBC (Auto) Urine Creatinine Urine Total Protein Vancomycin Trough Rheumatoid Factor Complement C4 Crossmatch 09/10/16 09/10/16 09/10/16 05:17 05:17 11:31 WBC 15.8 H RBC 3.25 L Hgb 7.3 L Hct 22.9 L MCV 71 L MCH 23 L MCHC RDW 18.4 H Plt Count Lymph % (Auto) [place] % (Auto) Lymph # [place] # Seg Neutrophils % Seg Neuts % (Manual) 91.0 H Lymphocytes % (Manual) 4.0 L Monocytes % (Manual) Eosinophils % (Manual) Basophils % (Manual) Nucleated RBC % Seg Neutrophils # Seg Neutrophils # Man 14.4 H Lymphocytes # (Manual) 0.6 L Monocytes # (Manual) Eosinophils # (Manual) Fibrinogen dRVVT Confirm Interp Factor V Activity POC ABG pH POC ABG pCO2 POC ABG pO2 Sodium Potassium Chloride Carbon Dioxide 21 L BUN 93 H Creatinine 2.9 H Glucose 146 H POC Glucose 188 H Lactic Acid Calcium 8.1 L Phosphorus Magnesium Direct Bilirubin ALT Alkaline Phosphatase Troponin T C-Reactive Protein Total Protein Albumin Triglycerides Cholesterol LDL Cholesterol Direct HDL Cholesterol Urine WBC (Auto) Urine Creatinine Urine Total Protein Vancomycin Trough Rheumatoid Factor Complement C4 Crossmatch 09/10/16 09/10/16 09/10/16 13:17 17:20 23:32 WBC RBC Hgb Hct MCV MCH MCHC RDW Plt Count Lymph % (Auto) [place] % (Auto) Lymph # [place] # Seg Neutrophils % Seg Neuts % (Manual) Lymphocytes % (Manual) Monocytes % (Manual) Eosinophils % (Manual) Basophils % (Manual) Nucleated RBC % Seg Neutrophils # Seg Neutrophils # Man Lymphocytes # (Manual) Monocytes # (Manual) Eosinophils # (Manual) Fibrinogen dRVVT Confirm Interp Factor V Activity POC ABG pH POC ABG pCO2 POC ABG pO2 Sodium Potassium Chloride Carbon Dioxide BUN Creatinine Glucose POC Glucose 199 H 186 H Lactic Acid Calcium Phosphorus Magnesium Direct Bilirubin ALT Alkaline Phosphatase Troponin T C-Reactive Protein Total Protein Albumin Triglycerides Cholesterol LDL Cholesterol Direct HDL Cholesterol Urine WBC (Auto) Urine Creatinine Urine Total Protein Vancomycin Trough Rheumatoid Factor Complement C4 Crossmatch See Detail 09/11/16 09/11/16 09/11/16 05:10 05:10 05:17 WBC 28.4 H RBC Hgb 9.2 L Hct 29.3 L D MCV 73 L MCH 23 L MCHC RDW 18.9 H Plt Count 452 H Lymph % (Auto) [place] % (Auto) Lymph # [place] # Seg Neutrophils % Seg Neuts % (Manual) 89.5 H Lymphocytes % (Manual) 2.0 L Monocytes % (Manual) Eosinophils % (Manual) Basophils % (Manual) Nucleated RBC % Seg Neutrophils # Seg Neutrophils # Man 25.4 H Lymphocytes # (Manual) 0.6 L Monocytes # (Manual) 1.3 H Eosinophils # (Manual) Fibrinogen dRVVT Confirm Interp Factor V Activity POC ABG pH POC ABG pCO2 POC ABG pO2 Sodium 136 L Potassium Chloride Carbon Dioxide 18 L BUN 107 H Creatinine 2.6 H Glucose 187 H POC Glucose 230 H Lactic Acid Calcium 8.3 L Phosphorus Magnesium Direct Bilirubin ALT Alkaline Phosphatase Troponin T C-Reactive Protein Total Protein Albumin Triglycerides Cholesterol LDL Cholesterol Direct HDL Cholesterol Urine WBC (Auto) Urine Creatinine Urine Total Protein Vancomycin Trough Rheumatoid Factor Complement C4 Crossmatch 09/11/16 09/11/16 09/11/16 05:55 12:02 17:32 WBC RBC Hgb Hct MCV MCH MCHC RDW Plt Count Lymph % (Auto) [place] % (Auto) Lymph # [place] # Seg Neutrophils % Seg Neuts % (Manual) Lymphocytes % (Manual) Monocytes % (Manual) Eosinophils % (Manual) Basophils % (Manual) Nucleated RBC % Seg Neutrophils # Seg Neutrophils # Man Lymphocytes # (Manual) Monocytes # (Manual) Eosinophils # (Manual) Fibrinogen dRVVT Confirm Interp Factor V Activity POC ABG pH POC ABG pCO2 33.8 L POC ABG pO2 Sodium Potassium Chloride Carbon Dioxide BUN Creatinine Glucose POC Glucose 191 H 239 H Lactic Acid Calcium Phosphorus Magnesium Direct Bilirubin ALT Alkaline Phosphatase Troponin T C-Reactive Protein Total Protein Albumin Triglycerides Cholesterol LDL Cholesterol Direct HDL Cholesterol Urine WBC (Auto) Urine Creatinine Urine Total Protein Vancomycin Trough Rheumatoid Factor Complement C4 Crossmatch 09/11/16 09/12/16 09/12/16 23:52 05:09 05:32 WBC RBC Hgb Hct MCV MCH MCHC RDW Plt Count Lymph % (Auto) [place] % (Auto) Lymph # [place] # Seg Neutrophils % Seg Neuts % (Manual) Lymphocytes % (Manual) Monocytes % (Manual) Eosinophils % (Manual) Basophils % (Manual) Nucleated RBC % Seg Neutrophils # Seg Neutrophils # Man Lymphocytes # (Manual) Monocytes # (Manual) Eosinophils # (Manual) Fibrinogen dRVVT Confirm Interp Factor V Activity POC ABG pH POC ABG pCO2 34.6 L POC ABG pO2 Sodium Potassium Chloride Carbon Dioxide BUN Creatinine Glucose POC Glucose 265 H 184 H Lactic Acid Calcium Phosphorus Magnesium Direct Bilirubin ALT Alkaline Phosphatase Troponin T C-Reactive Protein Total Protein Albumin Triglycerides Cholesterol LDL Cholesterol Direct HDL Cholesterol Urine WBC (Auto) Urine Creatinine Urine Total Protein Vancomycin Trough Rheumatoid Factor Complement C4 Crossmatch 09/12/16 09/12/16 09/12/16 06:45 06:45 07:22 WBC 31.7 H RBC 3.54 L Hgb 8.3 L Hct 25.9 L MCV 73 L MCH 23 L MCHC RDW 18.9 H Plt Count Lymph % (Auto) [place] % (Auto) Lymph # [place] # Seg Neutrophils % Seg Neuts % (Manual) 88.5 H Lymphocytes % (Manual) 4.5 L Monocytes % (Manual) Eosinophils % (Manual) Basophils % (Manual) Nucleated RBC % Seg Neutrophils # Seg Neutrophils # Man 28.1 H Lymphocytes # (Manual) Monocytes # (Manual) 1.0 H Eosinophils # (Manual) Fibrinogen dRVVT Confirm Interp Factor V Activity POC ABG pH POC ABG pCO2 POC ABG pO2 Sodium Potassium Chloride Carbon Dioxide 20 L BUN 115 H Creatinine 2.7 H Glucose 165 H POC Glucose Lactic Acid Calcium 8.0 L Phosphorus Magnesium Direct Bilirubin ALT Alkaline Phosphatase Troponin T C-Reactive Protein Total Protein Albumin Triglycerides 217 H Cholesterol LDL Cholesterol Direct HDL Cholesterol Urine WBC (Auto) Urine Creatinine Urine Total Protein Vancomycin Trough Rheumatoid Factor Complement C4 Crossmatch 09/12/16 09/12/16 09/12/16 07:22 09:59 12:21 WBC RBC Hgb Hct MCV MCH MCHC RDW Plt Count Lymph % (Auto) [place] % (Auto) Lymph # [place] # Seg Neutrophils % Seg Neuts % (Manual) Lymphocytes % (Manual) Monocytes % (Manual) Eosinophils % (Manual) Basophils % (Manual) Nucleated RBC % Seg Neutrophils # Seg Neutrophils # Man Lymphocytes # (Manual) Monocytes # (Manual) Eosinophils # (Manual) Fibrinogen dRVVT Confirm Interp Positive H Factor V Activity POC ABG pH POC ABG pCO2 POC ABG pO2 Sodium Potassium Chloride Carbon Dioxide BUN Creatinine Glucose POC Glucose 224 H Lactic Acid Calcium Phosphorus Magnesium Direct Bilirubin ALT Alkaline Phosphatase Troponin T C-Reactive Protein 1.70 H Total Protein Albumin Triglycerides Cholesterol LDL Cholesterol Direct HDL Cholesterol Urine WBC (Auto) Urine Creatinine Urine Total Protein Vancomycin Trough Rheumatoid Factor Complement C4 Crossmatch 09/12/16 09/12/16 09/13/16 16:51 23:28 04:00 WBC 45.0 H* RBC Hgb 9.4 L Hct MCV 75 L MCH 23 L MCHC RDW 19.0 H Plt Count 470 H Lymph % (Auto) [place] % (Auto) Lymph # [place] # Seg Neutrophils % Seg Neuts % (Manual) 89.0 H Lymphocytes % (Manual) 5.0 L Monocytes % (Manual) Eosinophils % (Manual) Basophils % (Manual) Nucleated RBC % Seg Neutrophils # Seg Neutrophils # Man 40.1 H Lymphocytes # (Manual) Monocytes # (Manual) Eosinophils # (Manual) Fibrinogen dRVVT Confirm Interp Factor V Activity POC ABG pH POC ABG pCO2 POC ABG pO2 Sodium Potassium Chloride Carbon Dioxide BUN Creatinine Glucose POC Glucose 169 H 150 H Lactic Acid Calcium Phosphorus Magnesium Direct Bilirubin ALT Alkaline Phosphatase Troponin T C-Reactive Protein Total Protein Albumin Triglycerides Cholesterol LDL Cholesterol Direct HDL Cholesterol Urine WBC (Auto) Urine Creatinine Urine Total Protein Vancomycin Trough Rheumatoid Factor Complement C4 Crossmatch 09/13/16 09/13/16 09/13/16 04:00 11:26 17:31 WBC RBC Hgb Hct MCV MCH MCHC RDW Plt Count Lymph % (Auto) [place] % (Auto) Lymph # [place] # Seg Neutrophils % Seg Neuts % (Manual) Lymphocytes % (Manual) Monocytes % (Manual) Eosinophils % (Manual) Basophils % (Manual) Nucleated RBC % Seg Neutrophils # Seg Neutrophils # Man Lymphocytes # (Manual) Monocytes # (Manual) Eosinophils # (Manual) Fibrinogen dRVVT Confirm Interp Factor V Activity POC ABG pH POC ABG pCO2 POC ABG pO2 Sodium Potassium Chloride Carbon Dioxide 20 L BUN 116 H Creatinine 3.0 H Glucose 172 H POC Glucose 140 H 183 H Lactic Acid Calcium Phosphorus Magnesium Direct Bilirubin ALT Alkaline Phosphatase Troponin T C-Reactive Protein Total Protein 6.2 L Albumin 2.9 L Triglycerides Cholesterol LDL Cholesterol Direct HDL Cholesterol Urine WBC (Auto) Urine Creatinine Urine Total Protein Vancomycin Trough Rheumatoid Factor Complement C4 Crossmatch 09/13/16 09/14/16 09/14/16 23:23 04:06 04:07 WBC 29.4 H RBC Hgb 8.9 L Hct 27.3 L MCV 75 L MCH 24 L MCHC RDW 19.1 H Plt Count Lymph % (Auto) [place] % (Auto) Lymph # [place] # Seg Neutrophils % Seg Neuts % (Manual) 84.0 H Lymphocytes % (Manual) 6.0 L Monocytes % (Manual) 9.0 H Eosinophils % (Manual) Basophils % (Manual) Nucleated RBC % Seg Neutrophils # Seg Neutrophils # Man 24.7 H Lymphocytes # (Manual) Monocytes # (Manual) 2.6 H Eosinophils # (Manual) Fibrinogen dRVVT Confirm Interp Factor V Activity POC ABG pH 7.342 L POC ABG pCO2 POC ABG pO2 116 H Sodium Potassium Chloride Carbon Dioxide BUN Creatinine Glucose POC Glucose 154 H Lactic Acid Calcium Phosphorus Magnesium Direct Bilirubin ALT Alkaline Phosphatase Troponin T C-Reactive Protein Total Protein Albumin Triglycerides Cholesterol LDL Cholesterol Direct HDL Cholesterol Urine WBC (Auto) Urine Creatinine Urine Total Protein Vancomycin Trough Rheumatoid Factor Complement C4 Crossmatch 09/14/16 09/14/16 09/14/16 04:07 05:29 12:19 WBC RBC Hgb Hct MCV MCH MCHC RDW Plt Count Lymph % (Auto) [place] % (Auto) Lymph # [place] # Seg Neutrophils % Seg Neuts % (Manual) Lymphocytes % (Manual) Monocytes % (Manual) Eosinophils % (Manual) Basophils % (Manual) Nucleated RBC % Seg Neutrophils # Seg Neutrophils # Man Lymphocytes # (Manual) Monocytes # (Manual) Eosinophils # (Manual) Fibrinogen dRVVT Confirm Interp Factor V Activity POC ABG pH POC ABG pCO2 POC ABG pO2 Sodium 136 L Potassium Chloride Carbon Dioxide 18 L BUN 121 H Creatinine 2.8 H Glucose 214 H POC Glucose 239 H 181 H Lactic Acid Calcium Phosphorus Magnesium Direct Bilirubin ALT Alkaline Phosphatase Troponin T C-Reactive Protein Total Protein Albumin Triglycerides Cholesterol LDL Cholesterol Direct HDL Cholesterol Urine WBC (Auto) Urine Creatinine Urine Total Protein Vancomycin Trough Rheumatoid Factor Complement C4 Crossmatch 09/14/16 09/14/16 09/15/16 18:12 23:37 05:00 WBC 26.1 H RBC 3.05 L Hgb 7.2 L Hct 22.9 L MCV 75 L MCH 24 L MCHC RDW 19.0 H Plt Count Lymph % (Auto) [place] % (Auto) Lymph # [place] # Seg Neutrophils % Seg Neuts % (Manual) Lymphocytes % (Manual) Monocytes % (Manual) Eosinophils % (Manual) Basophils % (Manual) Nucleated RBC % Seg Neutrophils # Seg Neutrophils # Man Lymphocytes # (Manual) Monocytes # (Manual) Eosinophils # (Manual) Fibrinogen dRVVT Confirm Interp Factor V Activity POC ABG pH POC ABG pCO2 POC ABG pO2 Sodium Potassium Chloride Carbon Dioxide BUN Creatinine Glucose POC Glucose 266 H 154 H Lactic Acid Calcium Phosphorus Magnesium Direct Bilirubin ALT Alkaline Phosphatase Troponin T C-Reactive Protein Total Protein Albumin Triglycerides Cholesterol LDL Cholesterol Direct HDL Cholesterol Urine WBC (Auto) Urine Creatinine Urine Total Protein Vancomycin Trough Rheumatoid Factor Complement C4 Crossmatch 09/15/16 09/15/16 09/15/16 05:00 05:17 12:45 WBC RBC Hgb Hct MCV MCH MCHC RDW Plt Count Lymph % (Auto) [place] % (Auto) Lymph # [place] # Seg Neutrophils % Seg Neuts % (Manual) Lymphocytes % (Manual) Monocytes % (Manual) Eosinophils % (Manual) Basophils % (Manual) Nucleated RBC % Seg Neutrophils # Seg Neutrophils # Man Lymphocytes # (Manual) Monocytes # (Manual) Eosinophils # (Manual) Fibrinogen dRVVT Confirm Interp Factor V Activity POC ABG pH POC ABG pCO2 POC ABG pO2 Sodium Potassium 5.2 H Chloride Carbon Dioxide 18 L BUN 139 H Creatinine 3.7 H Glucose 227 H POC Glucose 226 H 244 H Lactic Acid Calcium 8.3 L Phosphorus Magnesium Direct Bilirubin ALT Alkaline Phosphatase Troponin T C-Reactive Protein Total Protein Albumin Triglycerides Cholesterol LDL Cholesterol Direct HDL Cholesterol Urine WBC (Auto) Urine Creatinine Urine Total Protein Vancomycin Trough Rheumatoid Factor Complement C4 Crossmatch 09/15/16 09/15/1609/15/17 14:32 17:33 23:35 WBC RBC Hgb Hct MCV MCH MCHC RDW Plt Count Lymph % (Auto) [place] % (Auto) Lymph # [place] # Seg Neutrophils % Seg Neuts % (Manual) Lymphocytes % (Manual) Monocytes % (Manual) Eosinophils % (Manual) Basophils % (Manual) Nucleated RBC % Seg Neutrophils # Seg Neutrophils # Man Lymphocytes # (Manual) Monocytes # (Manual) Eosinophils # (Manual) Fibrinogen dRVVT Confirm Interp Factor V Activity POC ABG pH POC ABG pCO2 27.7 L POC ABG pO2 120 H Sodium Potassium Chloride Carbon Dioxide BUN Creatinine Glucose POC Glucose 232 H 167 H Lactic Acid Calcium Phosphorus Magnesium Direct Bilirubin ALT Alkaline Phosphatase Troponin T C-Reactive Protein Total Protein Albumin Triglycerides Cholesterol LDL Cholesterol Direct HDL Cholesterol Urine WBC (Auto) Urine Creatinine Urine Total Protein Vancomycin Trough Rheumatoid Factor Complement C4 Crossmatch 09/16/16 09/16/16 09/16/16 03:58 10:27 10:27 WBC 19.0 H RBC 2.77 L Hgb 6.5 L Hct 20.9 L MCV 76 L MCH 23 L MCHC RDW 19.3 H Plt Count Lymph % (Auto) 11.0 L [place] % (Auto) Lymph # [place] # 1.1 H Seg Neutrophils % 82.5 H Seg Neuts % (Manual) Lymphocytes % (Manual) Monocytes % (Manual) Eosinophils % (Manual) Basophils % (Manual) Nucleated RBC % Seg Neutrophils # 15.7 H Seg Neutrophils # Man Lymphocytes # (Manual) Monocytes # (Manual) Eosinophils # (Manual) Fibrinogen dRVVT Confirm Interp Factor V Activity POC ABG pH POC ABG pCO2 POC ABG pO2 Sodium Potassium Chloride 109.3 H Carbon Dioxide 18 L BUN 139 H Creatinine 4.1 H Glucose 144 H POC Glucose 146 H Lactic Acid Calcium 8.1 L Phosphorus Magnesium Direct Bilirubin ALT Alkaline Phosphatase Troponin T C-Reactive Protein Total Protein Albumin Triglycerides Cholesterol LDL Cholesterol Direct HDL Cholesterol Urine WBC (Auto) Urine Creatinine Urine Total Protein Vancomycin Trough Rheumatoid Factor Complement C4 Crossmatch 09/16/16 09/16/16 09/16/16 12:04 12:10 13:55 WBC RBC Hgb Hct MCV MCH MCHC RDW Plt Count Lymph % (Auto) [place] % (Auto) Lymph # [place] # Seg Neutrophils % Seg Neuts % (Manual) Lymphocytes % (Manual) Monocytes % (Manual) Eosinophils % (Manual) Basophils % (Manual) Nucleated RBC % Seg Neutrophils # Seg Neutrophils # Man Lymphocytes # (Manual) Monocytes # (Manual) Eosinophils # (Manual) Fibrinogen dRVVT Confirm Interp Factor V Activity POC ABG pH POC ABG pCO2 32.9 L POC ABG pO2 Sodium Potassium Chloride Carbon Dioxide BUN Creatinine Glucose POC Glucose 185 H Lactic Acid Calcium Phosphorus Magnesium Direct Bilirubin ALT Alkaline Phosphatase Troponin T C-Reactive Protein Total Protein Albumin Triglycerides Cholesterol LDL Cholesterol Direct HDL Cholesterol Urine WBC (Auto) Urine Creatinine Urine Total Protein Vancomycin Trough Rheumatoid Factor Complement C4 Crossmatch See Detail 09/16/16 09/16/16 09/16/16 17:55 19:19 23:48 WBC RBC Hgb Hct MCV MCH MCHC RDW Plt Count Lymph % (Auto) [place] % (Auto) Lymph # [place] # Seg Neutrophils % Seg Neuts % (Manual) Lymphocytes % (Manual) Monocytes % (Manual) Eosinophils % (Manual) Basophils % (Manual) Nucleated RBC % Seg Neutrophils # Seg Neutrophils # Man Lymphocytes # (Manual) Monocytes # (Manual) Eosinophils # (Manual) Fibrinogen dRVVT Confirm Interp Factor V Activity POC ABG pH POC ABG pCO2 POC ABG pO2 Sodium Potassium Chloride Carbon Dioxide BUN Creatinine Glucose POC Glucose 222 H 107 H Lactic Acid Calcium Phosphorus Magnesium Direct Bilirubin ALT Alkaline Phosphatase Troponin T C-Reactive Protein Total Protein Albumin Triglycerides Cholesterol LDL Cholesterol Direct HDL Cholesterol Urine WBC (Auto) Urine Creatinine 47.4 H Urine Total Protein 16 H Vancomycin Trough Rheumatoid Factor Complement C4 Crossmatch 09/17/16 09/17/16 09/17/16 03:45 03:45 04:55 WBC 19.6 H RBC 3.41 L Hgb 8.5 L Hct 26.7 L MCV 78 L MCH 25 L MCHC RDW 19.9 H Plt Count Lymph % (Auto) 9.3 L [place] % (Auto) Lymph # [place] # 1.2 H Seg Neutrophils % 83.9 H Seg Neuts % (Manual) Lymphocytes % (Manual) Monocytes % (Manual) Eosinophils % (Manual) Basophils % (Manual) Nucleated RBC % Seg Neutrophils # 16.4 H Seg Neutrophils # Man Lymphocytes # (Manual) Monocytes # (Manual) Eosinophils # (Manual) Fibrinogen dRVVT Confirm Interp Factor V Activity POC ABG pH POC ABG pCO2 POC ABG pO2 Sodium 146 H Potassium 5.1 H Chloride 110.9 H Carbon Dioxide 16 L BUN 146 H Creatinine 4.0 H Glucose 108 H POC Glucose 133 H Lactic Acid Calcium Phosphorus Magnesium 3.00 H Direct Bilirubin ALT Alkaline Phosphatase Troponin T C-Reactive Protein Total Protein Albumin Triglycerides Cholesterol LDL Cholesterol Direct HDL Cholesterol Urine WBC (Auto) Urine Creatinine Urine Total Protein Vancomycin Trough Rheumatoid Factor Complement C4 Crossmatch 09/17/16 09/17/16 09/17/16 11:15 17:33 23:47 WBC RBC Hgb Hct MCV MCH MCHC RDW Plt Count Lymph % (Auto) [place] % (Auto) Lymph # [place] # Seg Neutrophils % Seg Neuts % (Manual) Lymphocytes % (Manual) Monocytes % (Manual) Eosinophils % (Manual) Basophils % (Manual) Nucleated RBC % Seg Neutrophils # Seg Neutrophils # Man Lymphocytes # (Manual) Monocytes # (Manual) Eosinophils # (Manual) Fibrinogen dRVVT Confirm Interp Factor V Activity POC ABG pH POC ABG pCO2 POC ABG pO2 Sodium Potassium Chloride Carbon Dioxide BUN Creatinine Glucose POC Glucose 176 H 246 H 148 H Lactic Acid Calcium Phosphorus Magnesium Direct Bilirubin ALT Alkaline Phosphatase Troponin T C-Reactive Protein Total Protein Albumin Triglycerides Cholesterol LDL Cholesterol Direct HDL Cholesterol Urine WBC (Auto) Urine Creatinine Urine Total Protein Vancomycin Trough Rheumatoid Factor Complement C4 Crossmatch 09/18/16 09/18/16 09/18/16 05:33 08:31 08:31 WBC 18.0 H RBC 3.17 L Hgb 9.0 L Hct 25.7 L MCV MCH MCHC 35 H RDW 20.4 H Plt Count Lymph % (Auto) [place] % (Auto) Lymph # [place] # Seg Neutrophils % Seg Neuts % (Manual) Lymphocytes % (Manual) Monocytes % (Manual) Eosinophils % (Manual) Basophils % (Manual) Nucleated RBC % Seg Neutrophils # Seg Neutrophils # Man Lymphocytes # (Manual) Monocytes # (Manual) Eosinophils # (Manual) Fibrinogen dRVVT Confirm Interp Factor V Activity POC ABG pH POC ABG pCO2 POC ABG pO2 Sodium Potassium Chloride Carbon Dioxide 15 L BUN 124 H Creatinine 3.8 H Glucose POC Glucose 120 H Lactic Acid Calcium 8.1 L Phosphorus Magnesium Direct Bilirubin ALT Alkaline Phosphatase Troponin T C-Reactive Protein Total Protein Albumin Triglycerides Cholesterol LDL Cholesterol Direct HDL Cholesterol Urine WBC (Auto) Urine Creatinine Urine Total Protein Vancomycin Trough Rheumatoid Factor Complement C4 Crossmatch 09/18/16 09/18/16 09/18/16 12:03 15:34 17:50 WBC RBC Hgb Hct MCV MCH MCHC RDW Plt Count Lymph % (Auto) [place] % (Auto) Lymph # [place] # Seg Neutrophils % Seg Neuts % (Manual) Lymphocytes % (Manual) Monocytes % (Manual) Eosinophils % (Manual) Basophils % (Manual) Nucleated RBC % Seg Neutrophils # Seg Neutrophils # Man Lymphocytes # (Manual) Monocytes # (Manual) Eosinophils # (Manual) Fibrinogen dRVVT Confirm Interp Factor V Activity POC ABG pH POC ABG pCO2 25.7 L POC ABG pO2 66 L Sodium Potassium Chloride Carbon Dioxide BUN Creatinine Glucose POC Glucose 156 H 220 H Lactic Acid Calcium Phosphorus Magnesium Direct Bilirubin ALT Alkaline Phosphatase Troponin T C-Reactive Protein Total Protein Albumin Triglycerides Cholesterol LDL Cholesterol Direct HDL Cholesterol Urine WBC (Auto) Urine Creatinine Urine Total Protein Vancomycin Trough Rheumatoid Factor Complement C4 Crossmatch 09/19/16 09/19/16 09/19/16 06:21 09:50 09:50 WBC 17.1 H RBC 3.49 L Hgb 9.0 L Hct 28.1 L MCV MCH 26 L MCHC RDW 20.8 H Plt Count Lymph % (Auto) 11.5 L [place] % (Auto) 7.5 H Lymph # [place] # 1.3 H Seg Neutrophils % 79.8 H Seg Neuts % (Manual) Lymphocytes % (Manual) Monocytes % (Manual) Eosinophils % (Manual) Basophils % (Manual) Nucleated RBC % Seg Neutrophils # 13.7 H Seg Neutrophils # Man Lymphocytes # (Manual) Monocytes # (Manual) Eosinophils # (Manual) Fibrinogen dRVVT Confirm Interp Factor V Activity POC ABG pH POC ABG pCO2 POC ABG pO2 Sodium Potassium Chloride 108.6 H Carbon Dioxide 15 L BUN 125 H Creatinine 4.1 H Glucose 124 H POC Glucose 119 H Lactic Acid Calcium Phosphorus Magnesium Direct Bilirubin ALT Alkaline Phosphatase Troponin T C-Reactive Protein Total Protein Albumin Triglycerides Cholesterol LDL Cholesterol Direct HDL Cholesterol Urine WBC (Auto) Urine Creatinine Urine Total Protein Vancomycin Trough Rheumatoid Factor Complement C4 Crossmatch 09/19/16 09/19/16 09/19/16 11:25 17:53 23:36 WBC RBC Hgb Hct MCV MCH MCHC RDW Plt Count Lymph % (Auto) [place] % (Auto) Lymph # [place] # Seg Neutrophils % Seg Neuts % (Manual) Lymphocytes % (Manual) Monocytes % (Manual) Eosinophils % (Manual) Basophils % (Manual) Nucleated RBC % Seg Neutrophils # Seg Neutrophils # Man Lymphocytes # (Manual) Monocytes # (Manual) Eosinophils # (Manual) Fibrinogen dRVVT Confirm Interp Factor V Activity POC ABG pH POC ABG pCO2 POC ABG pO2 Sodium Potassium Chloride Carbon Dioxide BUN Creatinine Glucose POC Glucose 160 H 245 H 121 H Lactic Acid Calcium Phosphorus Magnesium Direct Bilirubin ALT Alkaline Phosphatase Troponin T C-Reactive Protein Total Protein Albumin Triglycerides Cholesterol LDL Cholesterol Direct HDL Cholesterol Urine WBC (Auto) Urine Creatinine Urine Total Protein Vancomycin Trough Rheumatoid Factor Complement C4 Crossmatch 09/20/16 09/20/16 09/20/16 04:10 04:10 04:10 WBC 17.0 H RBC 3.21 L Hgb 8.2 L Hct 25.5 L MCV MCH 26 L MCHC RDW 20.9 H Plt Count Lymph % (Auto) [place] % (Auto) Lymph # [place] # Seg Neutrophils % Seg Neuts % (Manual) Lymphocytes % (Manual) Monocytes % (Manual) Eosinophils % (Manual) Basophils % (Manual) Nucleated RBC % Seg Neutrophils # Seg Neutrophils # Man Lymphocytes # (Manual) Monocytes # (Manual) Eosinophils # (Manual) Fibrinogen dRVVT Confirm Interp Factor V Activity POC ABG pH POC ABG pCO2 POC ABG pO2 Sodium Potassium Chloride 111.0 H Carbon Dioxide 16 L BUN 129 H Creatinine 3.7 H Glucose 115 H POC Glucose Lactic Acid Calcium 8.2 L Phosphorus Magnesium Direct Bilirubin ALT Alkaline Phosphatase Troponin T C-Reactive Protein Total Protein Albumin Triglycerides 243 H Cholesterol LDL Cholesterol Direct HDL Cholesterol Urine WBC (Auto) Urine Creatinine Urine Total Protein Vancomycin Trough Rheumatoid Factor Complement C4 Crossmatch 09/20/16 09/20/16 09/20/16 05:40 11:52 16:50 WBC RBC Hgb Hct MCV MCH MCHC RDW Plt Count Lymph % (Auto) [place] % (Auto) Lymph # [place] # Seg Neutrophils % Seg Neuts % (Manual) Lymphocytes % (Manual) Monocytes % (Manual) Eosinophils % (Manual) Basophils % (Manual) Nucleated RBC % Seg Neutrophils # Seg Neutrophils # Man Lymphocytes # (Manual) Monocytes # (Manual) Eosinophils # (Manual) Fibrinogen dRVVT Confirm Interp Factor V Activity POC ABG pH POC ABG pCO2 POC ABG pO2 Sodium Potassium Chloride Carbon Dioxide BUN Creatinine Glucose POC Glucose 131 H 183 H 236 H Lactic Acid Calcium Phosphorus Magnesium Direct Bilirubin ALT Alkaline Phosphatase Troponin T C-Reactive Protein Total Protein Albumin Triglycerides Cholesterol LDL Cholesterol Direct HDL Cholesterol Urine WBC (Auto) Urine Creatinine Urine Total Protein Vancomycin Trough Rheumatoid Factor Complement C4 Crossmatch 09/20/16 09/21/16 09/21/16 23:51 03:30 04:44 WBC RBC Hgb Hct MCV MCH MCHC RDW Plt Count Lymph % (Auto) [place] % (Auto) Lymph # [place] # Seg Neutrophils % Seg Neuts % (Manual) Lymphocytes % (Manual) Monocytes % (Manual) Eosinophils % (Manual) Basophils % (Manual) Nucleated RBC % Seg Neutrophils # Seg Neutrophils # Man Lymphocytes # (Manual) Monocytes # (Manual) Eosinophils # (Manual) Fibrinogen dRVVT Confirm Interp Factor V Activity POC ABG pH POC ABG pCO2 POC ABG pO2 Sodium Potassium Chloride Carbon Dioxide BUN Creatinine Glucose POC Glucose 114 H 141 H Lactic Acid Calcium Phosphorus Magnesium 2.70 H Direct Bilirubin ALT Alkaline Phosphatase Troponin T C-Reactive Protein Total Protein Albumin Triglycerides Cholesterol LDL Cholesterol Direct HDL Cholesterol Urine WBC (Auto) Urine Creatinine Urine Total Protein Vancomycin Trough Rheumatoid Factor Complement C4 Crossmatch 09/21/16 09/21/16 09/21/16 07:45 07:45 10:01 WBC 13.8 H RBC 2.94 L Hgb 7.5 L Hct 23.5 L MCV MCH 26 L MCHC RDW 21.2 H Plt Count Lymph % (Auto) 6.9 L [place] % (Auto) 9.4 H Lymph # 0.9 L [place] # 1.3 H Seg Neutrophils % 83.2 H Seg Neuts % (Manual) Lymphocytes % (Manual) Monocytes % (Manual) Eosinophils % (Manual) Basophils % (Manual) Nucleated RBC % Seg Neutrophils # 11.5 H Seg Neutrophils # Man Lymphocytes # (Manual) Monocytes # (Manual) Eosinophils # (Manual) Fibrinogen dRVVT Confirm Interp Factor V Activity POC ABG pH 7.308 L POC ABG pCO2 31.9 L POC ABG pO2 148 H Sodium 147 H Potassium Chloride 114.2 H Carbon Dioxide 15 L BUN 120 H Creatinine 3.9 H Glucose 156 H POC Glucose Lactic Acid Calcium 8.2 L Phosphorus Magnesium Direct Bilirubin ALT Alkaline Phosphatase Troponin T C-Reactive Protein Total Protein Albumin Triglycerides Cholesterol LDL Cholesterol Direct HDL Cholesterol Urine WBC (Auto) Urine Creatinine Urine Total Protein Vancomycin Trough Rheumatoid Factor Complement C4 Crossmatch 09/21/16 09/21/16 09/21/16 12:00 12:03 13:00 WBC RBC Hgb Hct MCV MCH MCHC RDW Plt Count Lymph % (Auto) [place] % (Auto) Lymph # [place] # Seg Neutrophils % Seg Neuts % (Manual) Lymphocytes % (Manual) Monocytes % (Manual) Eosinophils % (Manual) Basophils % (Manual) Nucleated RBC % Seg Neutrophils # Seg Neutrophils # Man Lymphocytes # (Manual) Monocytes # (Manual) Eosinophils # (Manual) Fibrinogen dRVVT Confirm Interp Factor V Activity POC ABG pH POC ABG pCO2 POC ABG pO2 Sodium Potassium Chloride Carbon Dioxide BUN Creatinine Glucose POC Glucose 163 H Lactic Acid Calcium Phosphorus Magnesium Direct Bilirubin ALT Alkaline Phosphatase Troponin T C-Reactive Protein Total Protein Albumin Triglycerides Cholesterol LDL Cholesterol Direct HDL Cholesterol Urine WBC (Auto) Urine Creatinine 54.8 H Urine Total Protein Vancomycin Trough 2.3 L Rheumatoid Factor Complement C4 Crossmatch 09/21/16 09/21/16 09/22/16 16:51 23:17 06:27 WBC RBC Hgb Hct MCV MCH MCHC RDW Plt Count Lymph % (Auto) [place] % (Auto) Lymph # [place] # Seg Neutrophils % Seg Neuts % (Manual) Lymphocytes % (Manual) Monocytes % (Manual) Eosinophils % (Manual) Basophils % (Manual) Nucleated RBC % Seg Neutrophils # Seg Neutrophils # Man Lymphocytes # (Manual) Monocytes # (Manual) Eosinophils # (Manual) Fibrinogen dRVVT Confirm Interp Factor V Activity POC ABG pH POC ABG pCO2 POC ABG pO2 Sodium Potassium Chloride Carbon Dioxide BUN Creatinine Glucose POC Glucose 206 H 114 H 115 H Lactic Acid Calcium Phosphorus Magnesium Direct Bilirubin ALT Alkaline Phosphatase Troponin T C-Reactive Protein Total Protein Albumin Triglycerides Cholesterol LDL Cholesterol Direct HDL Cholesterol Urine WBC (Auto) Urine Creatinine Urine Total Protein Vancomycin Trough Rheumatoid Factor Complement C4 Crossmatch 09/22/16 09/22/16 09/22/16 07:50 07:50 12:00 WBC 17.8 H RBC 3.04 L Hgb 8.0 L Hct 24.7 L MCV MCH 26 L MCHC RDW 21.6 H Plt Count Lymph % (Auto) [place] % (Auto) Lymph # [place] # Seg Neutrophils % Seg Neuts % (Manual) Lymphocytes % (Manual) Monocytes % (Manual) Eosinophils % (Manual) Basophils % (Manual) Nucleated RBC % Seg Neutrophils # Seg Neutrophils # Man Lymphocytes # (Manual) Monocytes # (Manual) Eosinophils # (Manual) Fibrinogen dRVVT Confirm Interp Factor V Activity POC ABG pH POC ABG pCO2 POC ABG pO2 Sodium 150 H Potassium Chloride 118.2 H Carbon Dioxide 14 L BUN 111 H Creatinine 3.7 H Glucose 157 H POC Glucose 183 H Lactic Acid Calcium Phosphorus Magnesium Direct Bilirubin ALT Alkaline Phosphatase Troponin T C-Reactive Protein Total Protein Albumin Triglycerides Cholesterol LDL Cholesterol Direct HDL Cholesterol Urine WBC (Auto) Urine Creatinine Urine Total Protein Vancomycin Trough Rheumatoid Factor Complement C4 Crossmatch 09/22/16 09/22/16 09/23/16 17:29 23:10 05:00 WBC 19.2 H RBC 3.13 L Hgb 8.0 L Hct 25.2 L MCV MCH 26 L MCHC RDW 22.1 H Plt Count Lymph % (Auto) [place] % (Auto) Lymph # [place] # Seg Neutrophils % Seg Neuts % (Manual) 92.0 H Lymphocytes % (Manual) 3.0 L Monocytes % (Manual) Eosinophils % (Manual) Basophils % (Manual) Nucleated RBC % Seg Neutrophils # Seg Neutrophils # Man 17.7 H Lymphocytes # (Manual) 0.6 L Monocytes # (Manual) Eosinophils # (Manual) Fibrinogen dRVVT Confirm Interp Factor V Activity POC ABG pH POC ABG pCO2 POC ABG pO2 Sodium Potassium Chloride Carbon Dioxide BUN Creatinine Glucose POC Glucose 197 H 169 H Lactic Acid Calcium Phosphorus Magnesium Direct Bilirubin ALT Alkaline Phosphatase Troponin T C-Reactive Protein Total Protein Albumin Triglycerides Cholesterol LDL Cholesterol Direct HDL Cholesterol Urine WBC (Auto) Urine Creatinine Urine Total Protein Vancomycin Trough Rheumatoid Factor Complement C4 Crossmatch 09/23/16 09/23/16 09/23/16 05:00 05:00 05:10 WBC RBC Hgb Hct MCV MCH MCHC RDW Plt Count Lymph % (Auto) [place] % (Auto) Lymph # [place] # Seg Neutrophils % Seg Neuts % (Manual) Lymphocytes % (Manual) Monocytes % (Manual) Eosinophils % (Manual) Basophils % (Manual) Nucleated RBC % Seg Neutrophils # Seg Neutrophils # Man Lymphocytes # (Manual) Monocytes # (Manual) Eosinophils # (Manual) Fibrinogen dRVVT Confirm Interp Factor V Activity POC ABG pH POC ABG pCO2 POC ABG pO2 Sodium 147 H Potassium 3.2 L Chloride 115.7 H Carbon Dioxide 13 L BUN 111 H Creatinine 3.8 H Glucose 194 H POC Glucose 188 H Lactic Acid Calcium 7.3 L D Phosphorus Magnesium Direct Bilirubin ALT Alkaline Phosphatase Troponin T C-Reactive Protein 3.20 H Total Protein Albumin Triglycerides Cholesterol LDL Cholesterol Direct HDL Cholesterol Urine WBC (Auto) Urine Creatinine Urine Total Protein Vancomycin Trough Rheumatoid Factor Complement C4 Crossmatch 09/23/16 09/23/16 09/23/16 11:37 12:29 18:01 WBC RBC Hgb Hct MCV MCH MCHC RDW Plt Count Lymph % (Auto) [place] % (Auto) Lymph # [place] # Seg Neutrophils % Seg Neuts % (Manual) Lymphocytes % (Manual) Monocytes % (Manual) Eosinophils % (Manual) Basophils % (Manual) Nucleated RBC % Seg Neutrophils # Seg Neutrophils # Man Lymphocytes # (Manual) Monocytes # (Manual) Eosinophils # (Manual) Fibrinogen dRVVT Confirm Interp Factor V Activity POC ABG pH POC ABG pCO2 18.9 L POC ABG pO2 143 H Sodium Potassium Chloride Carbon Dioxide BUN Creatinine Glucose POC Glucose 153 H 108 H Lactic Acid Calcium Phosphorus Magnesium Direct Bilirubin ALT Alkaline Phosphatase Troponin T C-Reactive Protein Total Protein Albumin Triglycerides Cholesterol LDL Cholesterol Direct HDL Cholesterol Urine WBC (Auto) Urine Creatinine Urine Total Protein Vancomycin Trough Rheumatoid Factor Complement C4 Crossmatch 09/23/16 09/23/16 09/24/16 21:19 23:43 05:16 WBC RBC Hgb Hct MCV MCH MCHC RDW Plt Count Lymph % (Auto) [place] % (Auto) Lymph # [place] # Seg Neutrophils % Seg Neuts % (Manual) Lymphocytes % (Manual) Monocytes % (Manual) Eosinophils % (Manual) Basophils % (Manual) Nucleated RBC % Seg Neutrophils # Seg Neutrophils # Man Lymphocytes # (Manual) Monocytes # (Manual) Eosinophils # (Manual) Fibrinogen dRVVT Confirm Interp Factor V Activity POC ABG pH POC ABG pCO2 17.3 L POC ABG pO2 112 H Sodium Potassium Chloride Carbon Dioxide BUN Creatinine Glucose POC Glucose 143 H 164 H Lactic Acid Calcium Phosphorus Magnesium Direct Bilirubin ALT Alkaline Phosphatase Troponin T C-Reactive Protein Total Protein Albumin Triglycerides Cholesterol LDL Cholesterol Direct HDL Cholesterol Urine WBC (Auto) Urine Creatinine Urine Total Protein Vancomycin Trough Rheumatoid Factor Complement C4 Crossmatch 09/24/16 09/24/16 09/24/16 05:21 11:58 17:06 WBC RBC Hgb Hct MCV MCH MCHC RDW Plt Count Lymph % (Auto) [place] % (Auto) Lymph # [place] # Seg Neutrophils % Seg Neuts % (Manual) Lymphocytes % (Manual) Monocytes % (Manual) Eosinophils % (Manual) Basophils % (Manual) Nucleated RBC % Seg Neutrophils # Seg Neutrophils # Man Lymphocytes # (Manual) Monocytes # (Manual) Eosinophils # (Manual) Fibrinogen dRVVT Confirm Interp Factor V Activity POC ABG pH POC ABG pCO2 POC ABG pO2 Sodium Potassium Chloride Carbon Dioxide 10 L BUN 103 H Creatinine 4.3 H Glucose 163 H POC Glucose 173 H 167 H Lactic Acid Calcium 6.5 L Phosphorus Magnesium Direct Bilirubin ALT Alkaline Phosphatase Troponin T C-Reactive Protein Total Protein Albumin Triglycerides Cholesterol LDL Cholesterol Direct HDL Cholesterol Urine WBC (Auto) Urine Creatinine Urine Total Protein Vancomycin Trough Rheumatoid Factor Complement C4 Crossmatch 09/24/16 09/24/16 09/24/16 20:15 21:02 23:48 WBC RBC Hgb Hct MCV MCH MCHC RDW Plt Count Lymph % (Auto) [place] % (Auto) Lymph # [place] # Seg Neutrophils % Seg Neuts % (Manual) Lymphocytes % (Manual) Monocytes % (Manual) Eosinophils % (Manual) Basophils % (Manual) Nucleated RBC % Seg Neutrophils # Seg Neutrophils # Man Lymphocytes # (Manual) Monocytes # (Manual) Eosinophils # (Manual) Fibrinogen dRVVT Confirm Interp Factor V Activity POC ABG pH 7.288 L POC ABG pCO2 30.2 L 21.5 L POC ABG pO2 32 L 39 L Sodium Potassium Chloride Carbon Dioxide BUN Creatinine Glucose POC Glucose 109 H Lactic Acid Calcium Phosphorus Magnesium Direct Bilirubin ALT Alkaline Phosphatase Troponin T C-Reactive Protein Total Protein Albumin Triglycerides Cholesterol LDL Cholesterol Direct HDL Cholesterol Urine WBC (Auto) Urine Creatinine Urine Total Protein Vancomycin Trough Rheumatoid Factor Complement C4 Crossmatch 09/25/16 09/25/16 09/25/16 04:20 04:20 04:20 WBC RBC 2.58 L Hgb 7.0 L Hct 21.0 L MCV MCH 27 L MCHC RDW 23.8 H Plt Count Lymph % (Auto) [place] % (Auto) Lymph # [place] # Seg Neutrophils % Seg Neuts % (Manual) Lymphocytes % (Manual) 12.0 L Monocytes % (Manual) Eosinophils % (Manual) 7.0 H Basophils % (Manual) 2.0 H Nucleated RBC % Seg Neutrophils # Seg Neutrophils # Man Lymphocytes # (Manual) 0.9 L Monocytes # (Manual) Eosinophils # (Manual) 0.5 H Fibrinogen dRVVT Confirm Interp Factor V Activity POC ABG pH POC ABG pCO2 POC ABG pO2 Sodium Potassium Chloride Carbon Dioxide 15 L BUN 72 H Creatinine 3.8 H Glucose POC Glucose Lactic Acid Calcium 6.0 L Phosphorus 4.60 H Magnesium 1.60 L Direct Bilirubin ALT Alkaline Phosphatase Troponin T C-Reactive Protein Total Protein Albumin Triglycerides Cholesterol LDL Cholesterol Direct HDL Cholesterol Urine WBC (Auto) Urine Creatinine Urine Total Protein Vancomycin Trough Rheumatoid Factor Complement C4 Crossmatch 09/25/16 09/25/16 09/25/16 04:57 08:02 10:30 WBC RBC Hgb Hct MCV MCH MCHC RDW Plt Count Lymph % (Auto) [place] % (Auto) Lymph # [place] # Seg Neutrophils % Seg Neuts % (Manual) Lymphocytes % (Manual) Monocytes % (Manual) Eosinophils % (Manual) Basophils % (Manual) Nucleated RBC % Seg Neutrophils # Seg Neutrophils # Man Lymphocytes # (Manual) Monocytes # (Manual) Eosinophils # (Manual) Fibrinogen dRVVT Confirm Interp Factor V Activity POC ABG pH POC ABG pCO2 24.7 L POC ABG pO2 152 H Sodium Potassium Chloride Carbon Dioxide BUN Creatinine Glucose POC Glucose 113 H Lactic Acid Calcium Phosphorus Magnesium Direct Bilirubin ALT Alkaline Phosphatase Troponin T C-Reactive Protein Total Protein Albumin Triglycerides Cholesterol LDL Cholesterol Direct HDL Cholesterol Urine WBC (Auto) Urine Creatinine Urine Total Protein Vancomycin Trough Rheumatoid Factor Complement C4 Crossmatch See Detail 09/25/16 09/25/16 09/25/16 12:05 17:44 23:47 WBC RBC Hgb Hct MCV MCH MCHC RDW Plt Count Lymph % (Auto) [place] % (Auto) Lymph # [place] # Seg Neutrophils % Seg Neuts % (Manual) Lymphocytes % (Manual) Monocytes % (Manual) Eosinophils % (Manual) Basophils % (Manual) Nucleated RBC % Seg Neutrophils # Seg Neutrophils # Man Lymphocytes # (Manual) Monocytes # (Manual) Eosinophils # (Manual) Fibrinogen dRVVT Confirm Interp Factor V Activity POC ABG pH POC ABG pCO2 POC ABG pO2 Sodium Potassium Chloride Carbon Dioxide BUN Creatinine Glucose POC Glucose 117 H 119 H 150 H Lactic Acid Calcium Phosphorus Magnesium Direct Bilirubin ALT Alkaline Phosphatase Troponin T C-Reactive Protein Total Protein Albumin Triglycerides Cholesterol LDL Cholesterol Direct HDL Cholesterol Urine WBC (Auto) Urine Creatinine Urine Total Protein Vancomycin Trough Rheumatoid Factor Complement C4 Crossmatch 09/26/16 09/26/16 09/26/16 04:25 04:25 04:25 WBC RBC 2.65 L Hgb 7.4 L Hct 21.6 L MCV MCH MCHC RDW 22.5 H Plt Count Lymph % (Auto) [place] % (Auto) Lymph # [place] # Seg Neutrophils % Seg Neuts % (Manual) Lymphocytes % (Manual) 6.0 L Monocytes % (Manual) Eosinophils % (Manual) 11.0 H Basophils % (Manual) Nucleated RBC % Seg Neutrophils # Seg Neutrophils # Man Lymphocytes # (Manual) 0.4 L Monocytes # (Manual) Eosinophils # (Manual) 0.6 H Fibrinogen dRVVT Confirm Interp Factor V Activity POC ABG pH POC ABG pCO2 POC ABG pO2 Sodium Potassium Chloride 97.0 L Carbon Dioxide 19 L BUN 43 H Creatinine 2.6 H Glucose 130 H POC Glucose Lactic Acid 4.40 H* Calcium 6.7 L Phosphorus Magnesium Direct Bilirubin ALT Alkaline Phosphatase Troponin T C-Reactive Protein Total Protein Albumin Triglycerides Cholesterol LDL Cholesterol Direct HDL Cholesterol Urine WBC (Auto) Urine Creatinine Urine Total Protein Vancomycin Trough Rheumatoid Factor Complement C4 Crossmatch 09/26/16 09/26/16 09/26/16 05:20 11:44 12:12 WBC RBC Hgb Hct MCV MCH MCHC RDW Plt Count Lymph % (Auto) [place] % (Auto) Lymph # [place] # Seg Neutrophils % Seg Neuts % (Manual) Lymphocytes % (Manual) Monocytes % (Manual) Eosinophils % (Manual) Basophils % (Manual) Nucleated RBC % Seg Neutrophils # Seg Neutrophils # Man Lymphocytes # (Manual) Monocytes # (Manual) Eosinophils # (Manual) Fibrinogen dRVVT Confirm Interp Factor V Activity POC ABG pH POC ABG pCO2 27.0 L POC ABG pO2 69 L Sodium Potassium Chloride Carbon Dioxide BUN Creatinine Glucose POC Glucose 121 H 128 H Lactic Acid Calcium Phosphorus Magnesium Direct Bilirubin ALT Alkaline Phosphatase Troponin T C-Reactive Protein Total Protein Albumin Triglycerides Cholesterol LDL Cholesterol Direct HDL Cholesterol Urine WBC (Auto) Urine Creatinine Urine Total Protein Vancomycin Trough Rheumatoid Factor Complement C4 Crossmatch 09/26/16 09/26/16 09/27/16 18:31 23:40 08:20 WBC RBC Hgb Hct MCV MCH MCHC RDW Plt Count Lymph % (Auto) [place] % (Auto) Lymph # [place] # Seg Neutrophils % Seg Neuts % (Manual) Lymphocytes % (Manual) Monocytes % (Manual) Eosinophils % (Manual) Basophils % (Manual) Nucleated RBC % Seg Neutrophils # Seg Neutrophils # Man Lymphocytes # (Manual) Monocytes # (Manual) Eosinophils # (Manual) Fibrinogen dRVVT Confirm Interp Factor V Activity POC ABG pH POC ABG pCO2 POC ABG pO2 Sodium Potassium Chloride Carbon Dioxide BUN Creatinine Glucose POC Glucose 120 H 133 H Lactic Acid 4.10 H* Calcium Phosphorus Magnesium Direct Bilirubin ALT Alkaline Phosphatase Troponin T C-Reactive Protein Total Protein Albumin Triglycerides Cholesterol LDL Cholesterol Direct HDL Cholesterol Urine WBC (Auto) Urine Creatinine Urine Total Protein Vancomycin Trough Rheumatoid Factor Complement C4 Crossmatch 09/27/16 09/27/16 09/27/16 11:23 15:00 18:15 WBC RBC Hgb Hct MCV MCH MCHC RDW Plt Count Lymph % (Auto) [place] % (Auto) Lymph # [place] # Seg Neutrophils % Seg Neuts % (Manual) Lymphocytes % (Manual) Monocytes % (Manual) Eosinophils % (Manual) Basophils % (Manual) Nucleated RBC % Seg Neutrophils # Seg Neutrophils # Man Lymphocytes # (Manual) Monocytes # (Manual) Eosinophils # (Manual) Fibrinogen dRVVT Confirm Interp Factor V Activity POC ABG pH 7.459 H POC ABG pCO2 27.1 L POC ABG pO2 140 H Sodium Potassium Chloride Carbon Dioxide BUN Creatinine Glucose POC Glucose 114 H 127 H Lactic Acid Calcium Phosphorus Magnesium Direct Bilirubin ALT Alkaline Phosphatase Troponin T C-Reactive Protein Total Protein Albumin Triglycerides Cholesterol LDL Cholesterol Direct HDL Cholesterol Urine WBC (Auto) Urine Creatinine Urine Total Protein Vancomycin Trough Rheumatoid Factor Complement C4 Crossmatch 09/27/16 09/27/16 09/28/16 Unknown Unknown 03:45 WBC RBC 2.49 L Hgb 6.8 L Hct 20.7 L MCV MCH 27 L MCHC RDW 22.1 H Plt Count Lymph % (Auto) [place] % (Auto) Lymph # [place] # Seg Neutrophils % Seg Neuts % (Manual) 32.0 L Lymphocytes % (Manual) 12.0 L Monocytes % (Manual) 11.0 H Eosinophils % (Manual) 10.0 H Basophils % (Manual) Nucleated RBC % Seg Neutrophils # Seg Neutrophils # Man Lymphocytes # (Manual) 1.0 L Monocytes # (Manual) 0.9 H Eosinophils # (Manual) 0.8 H Fibrinogen dRVVT Confirm Interp Factor V Activity POC ABG pH POC ABG pCO2 POC ABG pO2 Sodium 135 L 135 L Potassium 3.5 L Chloride 93.6 L 94.4 L Carbon Dioxide 17 L 21 L BUN 45 H 28 H Creatinine 3.3 H 2.5 H Glucose 106 H POC Glucose Lactic Acid Calcium 7.3 L 7.1 L Phosphorus Magnesium Direct Bilirubin ALT Alkaline Phosphatase Troponin T C-Reactive Protein Total Protein Albumin Triglycerides Cholesterol LDL Cholesterol Direct HDL Cholesterol Urine WBC (Auto) Urine Creatinine Urine Total Protein Vancomycin Trough Rheumatoid Factor Complement C4 Crossmatch 09/28/16 09/28/16 09/28/16 03:45 07:25 11:58 WBC 13.3 H RBC 3.01 L Hgb 8.4 L Hct 25.0 L MCV MCH MCHC RDW 20.5 H Plt Count 128 L Lymph % (Auto) [place] % (Auto) Lymph # [place] # Seg Neutrophils % Seg Neuts % (Manual) Lymphocytes % (Manual) 7.0 L Monocytes % (Manual) Eosinophils % (Manual) 6.0 H Basophils % (Manual) Nucleated RBC % Seg Neutrophils # Seg Neutrophils # Man Lymphocytes # (Manual) 0.9 L Monocytes # (Manual) Eosinophils # (Manual) 0.8 H Fibrinogen dRVVT Confirm Interp Factor V Activity POC ABG pH POC ABG pCO2 POC ABG pO2 Sodium Potassium Chloride Carbon Dioxide BUN Creatinine Glucose POC Glucose 121 H Lactic Acid 4.50 H* Calcium Phosphorus Magnesium Direct Bilirubin ALT Alkaline Phosphatase Troponin T C-Reactive Protein Total Protein Albumin Triglycerides Cholesterol LDL Cholesterol Direct HDL Cholesterol Urine WBC (Auto) Urine Creatinine Urine Total Protein Vancomycin Trough Rheumatoid Factor Complement C4 Crossmatch 09/29/16 09/29/16 09/29/16 06:45 06:45 06:45 WBC 14.9 H RBC 2.74 L Hgb 7.6 L Hct 23.2 L MCV MCH MCHC RDW 20.5 H Plt Count 81 L Lymph % (Auto) [place] % (Auto) Lymph # [place] # Seg Neutrophils % Seg Neuts % (Manual) 81.0 H Lymphocytes % (Manual) 4.0 L Monocytes % (Manual) Eosinophils % (Manual) Basophils % (Manual) Nucleated RBC % Seg Neutrophils # Seg Neutrophils # Man 12.1 H Lymphocytes # (Manual) 0.6 L Monocytes # (Manual) Eosinophils # (Manual) Fibrinogen dRVVT Confirm Interp Factor V Activity POC ABG pH POC ABG pCO2 POC ABG pO2 Sodium 133 L Potassium 3.4 L Chloride 92.5 L Carbon Dioxide 21 L BUN 33 H Creatinine 3.0 H Glucose POC Glucose Lactic Acid Calcium 6.6 L Phosphorus Magnesium 1.40 L Direct Bilirubin 0.9 H ALT Alkaline Phosphatase Troponin T C-Reactive Protein Total Protein 4.3 L Albumin 1.3 L Triglycerides Cholesterol LDL Cholesterol Direct HDL Cholesterol Urine WBC (Auto) Urine Creatinine Urine Total Protein Vancomycin Trough Rheumatoid Factor Complement C4 Crossmatch 09/29/16 09/29/16 09/30/16 17:52 20:12 00:07 WBC RBC Hgb Hct MCV MCH MCHC RDW Plt Count Lymph % (Auto) [place] % (Auto) Lymph # [place] # Seg Neutrophils % Seg Neuts % (Manual) Lymphocytes % (Manual) Monocytes % (Manual) Eosinophils % (Manual) Basophils % (Manual) Nucleated RBC % Seg Neutrophils # Seg Neutrophils # Man Lymphocytes # (Manual) Monocytes # (Manual) Eosinophils # (Manual) Fibrinogen dRVVT Confirm Interp Factor V Activity POC ABG pH POC ABG pCO2 POC ABG pO2 Sodium Potassium Chloride Carbon Dioxide BUN Creatinine Glucose POC Glucose 50 L 51 L Lactic Acid Calcium Phosphorus Magnesium Direct Bilirubin ALT Alkaline Phosphatase Troponin T 0.204 H* C-Reactive Protein Total Protein Albumin Triglycerides Cholesterol 31 L LDL Cholesterol Direct 4 L HDL Cholesterol 3 L Urine WBC (Auto) Urine Creatinine Urine Total Protein Vancomycin Trough Rheumatoid Factor Complement C4 Crossmatch 09/30/16 09/30/16 09/30/16 01:30 05:15 06:10 WBC RBC Hgb Hct MCV MCH MCHC RDW Plt Count Lymph % (Auto) [place] % (Auto) Lymph # [place] # Seg Neutrophils % Seg Neuts % (Manual) Lymphocytes % (Manual) Monocytes % (Manual) Eosinophils % (Manual) Basophils % (Manual) Nucleated RBC % Seg Neutrophils # Seg Neutrophils # Man Lymphocytes # (Manual) Monocytes # (Manual) Eosinophils # (Manual) Fibrinogen dRVVT Confirm Interp Factor V Activity POC ABG pH POC ABG pCO2 POC ABG pO2 Sodium 133 L Potassium 3.2 L Chloride 93.2 L Carbon Dioxide 19 L BUN 36 H Creatinine 3.2 H Glucose 104 H POC Glucose 167 H 146 H Lactic Acid Calcium 6.4 L Phosphorus Magnesium 1.60 L Direct Bilirubin ALT Alkaline Phosphatase Troponin T C-Reactive Protein Total Protein Albumin Triglycerides Cholesterol LDL Cholesterol Direct HDL Cholesterol Urine WBC (Auto) Urine Creatinine Urine Total Protein Vancomycin Trough Rheumatoid Factor Complement C4 Crossmatch 09/30/16 09/30/16 09/30/16 11:26 13:39 18:38 WBC RBC Hgb Hct MCV MCH MCHC RDW Plt Count Lymph % (Auto) [place] % (Auto) Lymph # [place] # Seg Neutrophils % Seg Neuts % (Manual) Lymphocytes % (Manual) Monocytes % (Manual) Eosinophils % (Manual) Basophils % (Manual) Nucleated RBC % Seg Neutrophils # Seg Neutrophils # Man Lymphocytes # (Manual) Monocytes # (Manual) Eosinophils # (Manual) Fibrinogen dRVVT Confirm Interp Factor V Activity POC ABG pH 7.479 H POC ABG pCO2 29.8 L POC ABG pO2 117 H Sodium Potassium Chloride Carbon Dioxide BUN Creatinine Glucose POC Glucose 140 H 122 H Lactic Acid Calcium Phosphorus Magnesium Direct Bilirubin ALT Alkaline Phosphatase Troponin T C-Reactive Protein Total Protein Albumin Triglycerides Cholesterol LDL Cholesterol Direct HDL Cholesterol Urine WBC (Auto) Urine Creatinine Urine Total Protein Vancomycin Trough Rheumatoid Factor Complement C4 Crossmatch 10/01/16 10/01/16 10/01/16 06:00 06:00 12:37 WBC 12.6 H RBC 2.75 L Hgb 7.3 L Hct 23.3 L MCV MCH 27 L MCHC RDW 20.6 H Plt Count 72 L Lymph % (Auto) [place] % (Auto) Lymph # [place] # Seg Neutrophils % Seg Neuts % (Manual) 31.0 L Lymphocytes % (Manual) 8.0 L Monocytes % (Manual) Eosinophils % (Manual) Basophils % (Manual) Nucleated RBC % 3.0 H Seg Neutrophils # Seg Neutrophils # Man Lymphocytes # (Manual) 1.0 L Monocytes # (Manual) Eosinophils # (Manual) Fibrinogen dRVVT Confirm Interp Factor V Activity POC ABG pH POC ABG pCO2 POC ABG pO2 Sodium 127 L Potassium Chloride 86.8 L Carbon Dioxide 20 L BUN 42 H Creatinine 3.5 H Glucose POC Glucose 65 L Lactic Acid Calcium 7.0 L Phosphorus Magnesium Direct Bilirubin ALT Alkaline Phosphatase Troponin T C-Reactive Protein Total Protein Albumin Triglycerides Cholesterol LDL Cholesterol Direct HDL Cholesterol Urine WBC (Auto) Urine Creatinine Urine Total Protein Vancomycin Trough Rheumatoid Factor Complement C4 Crossmatch 10/01/16 10/01/16 10/02/16 17:39 23:32 00:59 WBC RBC Hgb Hct MCV MCH MCHC RDW Plt Count Lymph % (Auto) [place] % (Auto) Lymph # [place] # Seg Neutrophils % Seg Neuts % (Manual) Lymphocytes % (Manual) Monocytes % (Manual) Eosinophils % (Manual) Basophils % (Manual) Nucleated RBC % Seg Neutrophils # Seg Neutrophils # Man Lymphocytes # (Manual) Monocytes # (Manual) Eosinophils # (Manual) Fibrinogen dRVVT Confirm Interp Factor V Activity POC ABG pH POC ABG pCO2 POC ABG pO2 Sodium Potassium Chloride Carbon Dioxide BUN Creatinine Glucose POC Glucose 107 H 52 L 145 H Lactic Acid Calcium Phosphorus Magnesium Direct Bilirubin ALT Alkaline Phosphatase Troponin T C-Reactive Protein Total Protein Albumin Triglycerides Cholesterol LDL Cholesterol Direct HDL Cholesterol Urine WBC (Auto) Urine Creatinine Urine Total Protein Vancomycin Trough Rheumatoid Factor Complement C4 Crossmatch 10/02/16 10/02/16 10/02/16 10:30 10:50 10:50 WBC 14.7 H RBC 2.76 L Hgb 7.4 L Hct 23.6 L MCV MCH 27 L MCHC RDW 20.2 H Plt Count 79 L Lymph % (Auto) [place] % (Auto) Lymph # [place] # Seg Neutrophils % Seg Neuts % (Manual) 86.0 H Lymphocytes % (Manual) 6.0 L Monocytes % (Manual) Eosinophils % (Manual) Basophils % (Manual) Nucleated RBC % Seg Neutrophils # Seg Neutrophils # Man 12.6 H Lymphocytes # (Manual) 0.9 L Monocytes # (Manual) Eosinophils # (Manual) Fibrinogen dRVVT Confirm Interp Factor V Activity POC ABG pH 7.486 H POC ABG pCO2 30.1 L POC ABG pO2 108 H Sodium 131 L Potassium 3.4 L Chloride 89.9 L Carbon Dioxide BUN 26 H Creatinine 2.6 H Glucose POC Glucose Lactic Acid Calcium 7.0 L Phosphorus Magnesium Direct Bilirubin ALT Alkaline Phosphatase Troponin T C-Reactive Protein Total Protein Albumin Triglycerides Cholesterol LDL Cholesterol Direct HDL Cholesterol Urine WBC (Auto) Urine Creatinine Urine Total Protein Vancomycin Trough Rheumatoid Factor Complement C4 Crossmatch 10/02/16 10/03/16 10/03/16 23:45 00:45 05:10 WBC 12.9 H RBC 2.77 L Hgb 7.6 L Hct 23.7 L MCV MCH 27 L MCHC RDW 19.7 H Plt Count 89 L Lymph % (Auto) [place] % (Auto) Lymph # [place] # Seg Neutrophils % Seg Neuts % (Manual) Lymphocytes % (Manual) 8.0 L Monocytes % (Manual) Eosinophils % (Manual) Basophils % (Manual) Nucleated RBC % Seg Neutrophils # 11.9 H Seg Neutrophils # Man Lymphocytes # (Manual) 1.0 L Monocytes # (Manual) Eosinophils # (Manual) Fibrinogen dRVVT Confirm Interp Factor V Activity POC ABG pH POC ABG pCO2 POC ABG pO2 Sodium Potassium Chloride Carbon Dioxide BUN Creatinine Glucose POC Glucose 55 L 199 H Lactic Acid Calcium Phosphorus Magnesium Direct Bilirubin ALT Alkaline Phosphatase Troponin T C-Reactive Protein Total Protein Albumin Triglycerides Cholesterol LDL Cholesterol Direct HDL Cholesterol Urine WBC (Auto) Urine Creatinine Urine Total Protein Vancomycin Trough Rheumatoid Factor Complement C4 Crossmatch 10/03/16 10/03/16 10/03/16 05:10 12:14 13:18 WBC RBC Hgb Hct MCV MCH MCHC RDW Plt Count Lymph % (Auto) [place] % (Auto) Lymph # [place] # Seg Neutrophils % Seg Neuts % (Manual) Lymphocytes % (Manual) Monocytes % (Manual) Eosinophils % (Manual) Basophils % (Manual) Nucleated RBC % Seg Neutrophils # Seg Neutrophils # Man Lymphocytes # (Manual) Monocytes # (Manual) Eosinophils # (Manual) Fibrinogen dRVVT Confirm Interp Factor V Activity POC ABG pH POC ABG pCO2 POC ABG pO2 Sodium 129 L Potassium 3.3 L Chloride 88.8 L Carbon Dioxide 20 L BUN 29 H Creatinine 2.8 H Glucose POC Glucose 68 L 127 H Lactic Acid Calcium 7.2 L Phosphorus Magnesium Direct Bilirubin ALT Alkaline Phosphatase Troponin T C-Reactive Protein Total Protein Albumin Triglycerides Cholesterol LDL Cholesterol Direct HDL Cholesterol Urine WBC (Auto) Urine Creatinine Urine Total Protein Vancomycin Trough Rheumatoid Factor Complement C4 Crossmatch 10/03/16 10/03/16 10/03/16 14:42 18:21 19:09 WBC RBC Hgb Hct MCV MCH MCHC RDW Plt Count Lymph % (Auto) [place] % (Auto) Lymph # [place] # Seg Neutrophils % Seg Neuts % (Manual) Lymphocytes % (Manual) Monocytes % (Manual) Eosinophils % (Manual) Basophils % (Manual) Nucleated RBC % Seg Neutrophils # Seg Neutrophils # Man Lymphocytes # (Manual) Monocytes # (Manual) Eosinophils # (Manual) Fibrinogen dRVVT Confirm Interp Factor V Activity POC ABG pH 7.499 H POC ABG pCO2 28.4 L POC ABG pO2 44 L Sodium Potassium Chloride Carbon Dioxide BUN Creatinine Glucose POC Glucose 64 L 205 H Lactic Acid Calcium Phosphorus Magnesium Direct Bilirubin ALT Alkaline Phosphatase Troponin T C-Reactive Protein Total Protein Albumin Triglycerides Cholesterol LDL Cholesterol Direct HDL Cholesterol Urine WBC (Auto) Urine Creatinine Urine Total Protein Vancomycin Trough Rheumatoid Factor Complement C4 Crossmatch 10/03/16 10/04/16 10/04/16 23:33 04:18 06:30 WBC RBC 2.54 L Hgb 7.1 L Hct 21.7 L MCV MCH MCHC RDW 19.5 H Plt Count 76 L Lymph % (Auto) [place] % (Auto) Lymph # [place] # Seg Neutrophils % Seg Neuts % (Manual) 88.0 H Lymphocytes % (Manual) 6.0 L Monocytes % (Manual) Eosinophils % (Manual) Basophils % (Manual) Nucleated RBC % Seg Neutrophils # Seg Neutrophils # Man 8.8 H Lymphocytes # (Manual) 0.6 L Monocytes # (Manual) Eosinophils # (Manual) Fibrinogen dRVVT Confirm Interp Factor V Activity POC ABG pH 7.461 H POC ABG pCO2 33.6 L POC ABG pO2 211 H Sodium Potassium Chloride Carbon Dioxide BUN Creatinine Glucose POC Glucose 136 H Lactic Acid Calcium Phosphorus Magnesium Direct Bilirubin ALT Alkaline Phosphatase Troponin T C-Reactive Protein Total Protein Albumin Triglycerides Cholesterol LDL Cholesterol Direct HDL Cholesterol Urine WBC (Auto) Urine Creatinine Urine Total Protein Vancomycin Trough Rheumatoid Factor Complement C4 Crossmatch 10/04/16 10/04/16 10/04/16 06:30 11:45 17:54 WBC RBC Hgb Hct MCV MCH MCHC RDW Plt Count Lymph % (Auto) [place] % (Auto) Lymph # [place] # Seg Neutrophils % Seg Neuts % (Manual) Lymphocytes % (Manual) Monocytes % (Manual) Eosinophils % (Manual) Basophils % (Manual) Nucleated RBC % Seg Neutrophils # Seg Neutrophils # Man Lymphocytes # (Manual) Monocytes # (Manual) Eosinophils # (Manual) Fibrinogen dRVVT Confirm Interp Factor V Activity POC ABG pH POC ABG pCO2 POC ABG pO2 Sodium 128 L Potassium Chloride 87.4 L Carbon Dioxide 20 L BUN 34 H Creatinine 2.9 H Glucose 127 H POC Glucose 158 H 160 H Lactic Acid Calcium 7.4 L Phosphorus Magnesium Direct Bilirubin ALT Alkaline Phosphatase Troponin T C-Reactive Protein Total Protein Albumin Triglycerides Cholesterol LDL Cholesterol Direct HDL Cholesterol Urine WBC (Auto) Urine Creatinine Urine Total Protein Vancomycin Trough Rheumatoid Factor Complement C4 Crossmatch 10/04/16 10/05/16 10/05/16 23:25 04:30 05:00 WBC RBC 2.64 L Hgb 7.5 L Hct 22.6 L MCV MCH MCHC RDW 19.3 H Plt Count 80 L Lymph % (Auto) [place] % (Auto) Lymph # [place] # Seg Neutrophils % Seg Neuts % (Manual) Lymphocytes % (Manual) 12.0 L Monocytes % (Manual) Eosinophils % (Manual) Basophils % (Manual) Nucleated RBC % Seg Neutrophils # Seg Neutrophils # Man Lymphocytes # (Manual) Monocytes # (Manual) Eosinophils # (Manual) Fibrinogen dRVVT Confirm Interp Factor V Activity POC ABG pH 7.475 H POC ABG pCO2 33.3 L POC ABG pO2 140 H Sodium Potassium Chloride Carbon Dioxide BUN Creatinine Glucose POC Glucose 141 H Lactic Acid Calcium Phosphorus Magnesium Direct Bilirubin ALT Alkaline Phosphatase Troponin T C-Reactive Protein Total Protein Albumin Triglycerides Cholesterol LDL Cholesterol Direct HDL Cholesterol Urine WBC (Auto) Urine Creatinine Urine Total Protein Vancomycin Trough Rheumatoid Factor Complement C4 Crossmatch 10/05/16 10/05/16 10/05/16 05:00 05:09 12:58 WBC RBC Hgb Hct MCV MCH MCHC RDW Plt Count Lymph % (Auto) [place] % (Auto) Lymph # [place] # Seg Neutrophils % Seg Neuts % (Manual) Lymphocytes % (Manual) Monocytes % (Manual) Eosinophils % (Manual) Basophils % (Manual) Nucleated RBC % Seg Neutrophils # Seg Neutrophils # Man Lymphocytes # (Manual) Monocytes # (Manual) Eosinophils # (Manual) Fibrinogen dRVVT Confirm Interp Factor V Activity POC ABG pH POC ABG pCO2 POC ABG pO2 Sodium 131 L Potassium Chloride 94.0 L Carbon Dioxide 20 L BUN 22 H Creatinine 2.0 H Glucose 123 H POC Glucose 166 H 179 H Lactic Acid Calcium 7.7 L Phosphorus 2.20 L D Magnesium Direct Bilirubin ALT Alkaline Phosphatase Troponin T C-Reactive Protein Total Protein Albumin Triglycerides Cholesterol LDL Cholesterol Direct HDL Cholesterol Urine WBC (Auto) Urine Creatinine Urine Total Protein Vancomycin Trough Rheumatoid Factor Complement C4 Crossmatch 10/05/16 10/05/16 10/05/16 15:50 18:53 23:12 WBC RBC Hgb Hct MCV MCH MCHC RDW Plt Count Lymph % (Auto) [place] % (Auto) Lymph # [place] # Seg Neutrophils % Seg Neuts % (Manual) Lymphocytes % (Manual) Monocytes % (Manual) Eosinophils % (Manual) Basophils % (Manual) Nucleated RBC % Seg Neutrophils # Seg Neutrophils # Man Lymphocytes # (Manual) Monocytes # (Manual) Eosinophils # (Manual) Fibrinogen dRVVT Confirm Interp Factor V Activity POC ABG pH POC ABG pCO2 POC ABG pO2 Sodium Potassium Chloride Carbon Dioxide BUN Creatinine Glucose POC Glucose 150 H 164 H Lactic Acid Calcium Phosphorus Magnesium Direct Bilirubin ALT Alkaline Phosphatase Troponin T C-Reactive Protein Total Protein Albumin Triglycerides Cholesterol LDL Cholesterol Direct HDL Cholesterol Urine WBC (Auto) Urine Creatinine Urine Total Protein Vancomycin Trough Rheumatoid Factor Complement C4 Crossmatch See Detail 10/06/16 10/06/16 10/06/16 03:50 03:50 04:53 WBC RBC 3.00 L Hgb 8.6 L Hct 25.8 L MCV MCH MCHC RDW 17.9 H Plt Count 65 L Lymph % (Auto) [place] % (Auto) Lymph # [place] # Seg Neutrophils % Seg Neuts % (Manual) 30.0 L Lymphocytes % (Manual) 5.0 L Monocytes % (Manual) Eosinophils % (Manual) Basophils % (Manual) Nucleated RBC % Seg Neutrophils # Seg Neutrophils # Man Lymphocytes # (Manual) 0.4 L Monocytes # (Manual) Eosinophils # (Manual) Fibrinogen dRVVT Confirm Interp Factor V Activity POC ABG pH 7.310 L POC ABG pCO2 49.0 H POC ABG pO2 Sodium 133 L Potassium Chloride 95.9 L Carbon Dioxide BUN 26 H Creatinine 2.0 H Glucose 116 H POC Glucose Lactic Acid Calcium 7.8 L Phosphorus Magnesium Direct Bilirubin ALT Alkaline Phosphatase Troponin T C-Reactive Protein Total Protein Albumin Triglycerides Cholesterol LDL Cholesterol Direct HDL Cholesterol Urine WBC (Auto) Urine Creatinine Urine Total Protein Vancomycin Trough Rheumatoid Factor Complement C4 Crossmatch 10/06/16 10/06/16 10/06/16 05:23 11:52 18:34 WBC RBC Hgb Hct MCV MCH MCHC RDW Plt Count Lymph % (Auto) [place] % (Auto) Lymph # [place] # Seg Neutrophils % Seg Neuts % (Manual) Lymphocytes % (Manual) Monocytes % (Manual) Eosinophils % (Manual) Basophils % (Manual) Nucleated RBC % Seg Neutrophils # Seg Neutrophils # Man Lymphocytes # (Manual) Monocytes # (Manual) Eosinophils # (Manual) Fibrinogen dRVVT Confirm Interp Factor V Activity POC ABG pH POC ABG pCO2 POC ABG pO2 Sodium Potassium Chloride Carbon Dioxide BUN Creatinine Glucose POC Glucose 126 H 116 H 129 H Lactic Acid Calcium Phosphorus Magnesium Direct Bilirubin ALT Alkaline Phosphatase Troponin T C-Reactive Protein Total Protein Albumin Triglycerides Cholesterol LDL Cholesterol Direct HDL Cholesterol Urine WBC (Auto) Urine Creatinine Urine Total Protein Vancomycin Trough Rheumatoid Factor Complement C4 Crossmatch 10/07/16 10/07/16 10/07/16 05:00 10:00 11:24 WBC 17.0 H RBC 2.68 L Hgb 7.3 L Hct 25.3 L MCV MCH 27 L MCHC 29 L RDW 19.6 H Plt Count 74 L Lymph % (Auto) [place] % (Auto) Lymph # [place] # Seg Neutrophils % Seg Neuts % (Manual) Lymphocytes % (Manual) 12.0 L Monocytes % (Manual) Eosinophils % (Manual) Basophils % (Manual) Nucleated RBC % 4.0 H Seg Neutrophils # Seg Neutrophils # Man 10.7 H Lymphocytes # (Manual) Monocytes # (Manual) Eosinophils # (Manual) Fibrinogen dRVVT Confirm Interp Factor V Activity POC ABG pH POC ABG pCO2 POC ABG pO2 Sodium 130 L Potassium 3.2 L Chloride 93.9 L Carbon Dioxide 20 L BUN 44 H Creatinine 2.7 H Glucose 129 H POC Glucose 116 H Lactic Acid Calcium 7.4 L Phosphorus Magnesium Direct Bilirubin ALT 6 L Alkaline Phosphatase 195 H Troponin T C-Reactive Protein Total Protein 4.9 L Albumin 1.0 L Triglycerides Cholesterol LDL Cholesterol Direct HDL Cholesterol Urine WBC (Auto) Urine Creatinine Urine Total Protein Vancomycin Trough Rheumatoid Factor Complement C4 Crossmatch Allied health notes reviewed: RT
[2016-10-07] MEDS: ZOSYN/NS 2.25 GM/50ML 2.25 GM/50 ML BAG IV SCH ×3 (15:02→23:37)
--- NOTE | 2016-10-07 16:51 | Progress Note ---
Assessment and Plan After perforation from iatrogenic removal of PEG with significant intra- abdominal contamination. There appears to be thick drainage despite the abdominal washout. We'll continue JUAN bulb suction. Continue antibiotics. Continue supportive care. Wean vent as tolerated. Damage to JUAN corrected Subjective Date of service: 10/07/16 Patient Reports: Positive: afebrile, other (patient is postop day 1 status post diagnostic laparoscopy abdominal washout repair of gastric perforation and drain placement. She has been maintained in ICU on the ventilator, minimally responsive. Slight increase in her white cell count overnight. JUAN drain in place with thick viscous drainage was found to be damaged close to its exit site.) Objective Vital Signs - 12hr 10/07/16 10/07/16 10/07/16 04:55 05:00 05:30 Temperature 97.6 F Pulse Rate 108 H 99 H Respiratory 31 H 29 H Rate Blood Pressure 118/73 100/50 O2 Sat by Pulse 100 95 Oximetry 10/07/16 10/07/16 10/07/16 06:00 06:30 07:00 Temperature Pulse Rate 94 H 88 94 H Respiratory 28 H 28 H 26 H Rate Blood Pressure 101/56 97/47 91/43 O2 Sat by Pulse 97 88 97 Oximetry 10/07/16 10/07/16 10/07/16 07:15 07:30 08:00 Temperature 98.8 F Pulse Rate 104 H 93 H 109 H Respiratory 29 H 32 H Rate Blood Pressure 159/82 79/36 79/36 O2 Sat by Pulse 99 99 87 Oximetry 10/07/16 10/07/16 10/07/16 08:30 09:00 09:30 Temperature Pulse Rate 104 H 102 H 109 H Respiratory 21 16 25 H Rate Blood Pressure 156/86 159/82 193/99 O2 Sat by Pulse 98 99 90 Oximetry 10/07/16 10/07/16 10/07/16 10:00 10:30 10:43 Temperature Pulse Rate 104 H 107 H 101 H Respiratory 28 H 21 Rate Blood Pressure 170/88 210/100 210/100 O2 Sat by Pulse 99 99 Oximetry 10/07/16 10/07/16 10/07/16 11:00 11:30 12:00 Temperature 98.7 F Pulse Rate 111 H 109 H 106 H Respiratory 34 H 24 19 Rate Blood Pressure 186/82 177/78 142/74 O2 Sat by Pulse 99 99 99 Oximetry 10/07/16 10/07/16 10/07/16 12:30 13:00 13:30 Temperature Pulse Rate 109 H 106 H 101 H Respiratory 35 H 41 H 15 Rate Blood Pressure 190/99 141/72 143/79 O2 Sat by Pulse 86 100 Oximetry 10/07/16 10/07/16 10/07/16 14:00 14:30 15:00 Temperature Pulse Rate 104 H 99 H 105 H Respiratory 27 H 33 H 45 H Rate Blood Pressure 169/85 145/82 138/72 O2 Sat by Pulse 99 98 100 Oximetry 10/07/16 10/07/16 10/07/16 15:30 15:48 16:00 Temperature 99.8 F H Pulse Rate 97 H 99 H Respiratory 30 H 21 Rate Blood Pressure 140/67 139/70 O2 Sat by Pulse 100 100 Oximetry - General physical appearance no distress - Respiratory normal respiratory effort - Abdomen soft, not tender, wound (and dry and intact), other (drain adjusted to allow adequate suction via JUAN bulb) - Psychiatric other (minimally responsive) - Labs 10/07/16 05:00 10/07/16 10:00 Diabetes panel 10/07/16 10/07/16 Range/Units 05:00 10:00 Sodium TNR 130 L Potassium TNR 3.2 L Chloride TNR 93.9 L Carbon Dioxide TNR 20 L BUN TNR 44 H Creatinine TNR 2.7 H Glucose TNR 129 H Calcium TNR 7.4 L AST TNR 32 ALT TNR 6 L Alkaline Phosphatase TNR 195 H Total Protein TNR 4.9 L Albumin TNR 1.0 L Calcium panel 10/07/16 10/07/16 10/07/16 Range/Units 05:00 10:00 10:00 Calcium TNR 7.4 L Phosphorus TNR 3.20 Albumin TNR 1.0 L Pituitary panel 10/07/16 10/07/16 Range/Units 05:00 10:00 Sodium TNR 130 L Potassium TNR 3.2 L Chloride TNR 93.9 L Carbon Dioxide TNR 20 L BUN TNR 44 H Creatinine TNR 2.7 H Glucose TNR 129 H Calcium TNR 7.4 L Adrenal panel 10/07/16 10/07/16 Range/Units 05:00 10:00 Sodium TNR 130 L Potassium TNR 3.2 L Chloride TNR 93.9 L Carbon Dioxide TNR 20 L BUN TNR 44 H Creatinine TNR 2.7 H Glucose TNR 129 H Calcium TNR 7.4 L Total Bilirubin TNR 0.60 AST TNR 32 ALT TNR 6 L Alkaline Phosphatase TNR 195 H Total Protein TNR 4.9 L Albumin TNR 1.0 L
[2016-10-07] MEDS: CORDARONE 900 MG in D5W 482 ML IV SCH (18:49)
--- NOTE | 2016-10-07 19:27 | Progress Note ---
Assessment and Plan Assessment and plan: 1. Acute hypoxic respiratory failure On mechanical ventilation Status post trach 2. Acute massive left MCA CVA Status post TPA Aspirin/statin Supportive care 3. Encephalopathy Multifactorial, treating underlying conditions 4. Recurrent sepsis with septic shock Presumed aspiration pneumonia/, UTI/candidemia/peritonitis due to gastric perforation from dislodged PEG Off pressors now Antibiotic/antifungals per ID recommendation 5. Dislodged PEG Status post wedge gastrectomy repair of gastric perforation, abdominal washout and drain placement Surgery following 6. Acute blood loss anemia acquiring PRBC transfusion 7. Acute on chronic renal failure If further worsening, nephrology consider dialysis 8. Electrolyte imbalances Replete, recheck 9. Paroxysmal A. fib Status post failed conversion on 09/25 Amiodarone drip No anticoagulation due to anemia/thrombocytopenia, massive CVA 10. Diabetes Insulin/SSI 11. Severe protein caloric malnutrition Currently on TPN 12. Extensive back skin peeling 13. DVT prophylaxis SCDs, no pharmacological agent given anemia requiring multiple PRBC transfusions , thrombocytopenia, massive stroke 14. FULL Code 15. Poor prognosis History Interval history: Status post diagnostic laparoscopy with gastrectomy repair of gastric perforation and abdominal washout Sedated, remains off pressors, afebrile Hospitalist Physical - Constitutional Vitals: Temp Pulse Resp BP Pulse Ox 99.8 F H 104 H 33 H 158/80 100 10/07/16 15:48 10/07/16 18:00 10/07/16 18:00 10/07/16 18:00 10/07/16 18:00 General appearance: Present: no acute distress, obese, other (on vent, non- responsive) - EENT Eyes: Present: PERRL. Absent: scleral icterus, conjunctival injection, discharge - Neck Neck: Present: other (trach in place). Absent: enlarged thyroid, masses or JVD - Respiratory Respiratory effort: other (on vent) Respiratory: bilateral: diminished (coarse breath sounds) - Cardiovascular Rhythm: irregularly irregular Heart Sounds: Present: S1 & S2. Absent: systolic murmur - Extremities Extremities: no ischemia Extremity abnormal: edema (peripharal) - Abdominal General gastrointestinal: soft, non-distended, hypoactive bowel sounds, other ( drain in place with purulent content) - Psychiatric Psychiatric: other (unresponsive) Results - Labs CBC & Chem 7: 10/09/16 16:20 10/09/16 03:45 Labs: Laboratory Last Values WBC 17.0 K/mm3 (4.5-11.0) H 10/07/16 05:00 RBC 2.68 M/mm3 (3.65-5.03) L 10/07/16 05:00 Hgb 7.3 gm/dl (10.1-14.3) L 10/07/16 05:00 Hct 25.3 % (30.3-42.9) L 10/07/16 05:00 MCV 95 fl (79-97) 10/07/16 05:00 MCH 27 pg (28-32) L 10/07/16 05:00 MCHC 29 % (30-34) L 10/07/16 05:00 RDW 19.6 % (13.2-15.2) H 10/07/16 05:00 Plt Count 74 K/mm3 (140-440) L 10/07/16 05:00 Lymph % (Auto) 6.9 % (13.4-35.0) L 09/21/16 07:45 Brule % (Auto) 0.5 % (0.0-7.3) 10/03/16 05:10 Eos % (Auto) 1.3 % (0.0-4.3) 10/03/16 05:10 Baso % (Auto) 0.2 % (0.0-1.8) 09/21/16 07:45 Lymph # 0.9 K/mm3 (1.2-5.4) L 09/21/16 07:45 Brule # 0.1 K/mm3 (0.0-0.8) 10/03/16 05:10 Eos # 0.2 K/mm3 (0.0-0.4) 10/03/16 05:10 Baso # 0.0 K/mm3 (0.0-0.1) 10/03/16 05:10 Add Manual Diff Complete 10/07/16 05:00 Total Counted 100 10/07/16 05:00 Seg Neutrophils % Scientific Database Curator 10/03/16 05:10 Seg Neuts % (Manual) 63.0 % (40.0-70.0) 10/07/16 05:00 Band Neutrophils % 16.0 % 10/07/16 05:00 Lymphocytes % (Manual) 12.0 % (13.4-35.0) L 10/07/16 05:00 Reactive Lymphs % (Man) 0 % 10/07/16 05:00 Monocytes % (Manual) 4.0 % (0.0-7.3) 10/07/16 05:00 Eosinophils % (Manual) 0 % (0.0-4.3) 10/07/16 05:00 Basophils % (Manual) 0 % (0.0-1.8) 10/07/16 05:00 Metamyelocytes % 5.0 % 10/07/16 05:00 Myelocytes % 0 % 10/07/16 05:00 Promyelocytes % 0 % 10/07/16 05:00 Blast Cells % 0 % 10/07/16 05:00 Nucleated RBC % 4.0 % (0.0-0.9) H 10/07/16 05:00 Seg Neutrophils # 11.9 K/mm3 (1.8-7.7) H 10/03/16 05:10 Seg Neutrophils # Man 10.7 K/mm3 (1.8-7.7) H 10/07/16 05:00 Band Neutrophils # 2.7 K/mm3 10/07/16 05:00 Lymphocytes # (Manual) 2.0 K/mm3 (1.2-5.4) 10/07/16 05:00 Abs React Lymphs (Man) 0.0 K/mm3 10/07/16 05:00 Monocytes # (Manual) 0.7 K/mm3 (0.0-0.8) 10/07/16 05:00 Eosinophils # (Manual) 0.0 K/mm3 (0.0-0.4) 10/07/16 05:00 Basophils # (Manual) 0.0 K/mm3 (0.0-0.1) 10/07/16 05:00 Metamyelocytes # 0.9 K/mm3 10/07/16 05:00 Myelocytes # 0.0 K/mm3 10/07/16 05:00 Promyelocytes # 0.0 K/mm3 10/07/16 05:00 Blast Cells # 0.0 K/mm3 10/07/16 05:00 Pathologist Review 09/13/16 04:00 WBC Morphology Not Reportable 10/07/16 05:00 Hypersegmented Neuts Not Reportable 10/07/16 05:00 Hyposegmented Neuts Not Reportable 10/07/16 05:00 Hypogranular Neuts Not Reportable 10/07/16 05:00 Smudge Cells Not Reportable 10/07/16 05:00 Toxic Granulation Not Reportable 10/07/16 05:00 Toxic Vacuolation Not Reportable 10/07/16 05:00 Dohle Bodies Not Reportable 10/07/16 05:00 Pelger-Huet Anomaly Not Reportable 10/07/16 05:00 Jasmina Rods Not Reportable 10/07/16 05:00 Platelet Estimate Consistent w auto 10/07/16 05:00 Clumped Platelets Not Reportable 10/07/16 05:00 Plt Clumps, EDTA Not Reportable 10/07/16 05:00 Large Platelets Not Reportable 10/07/16 05:00 Giant Platelets Not Reportable 10/07/16 05:00 Platelet Satelliting Not Reportable 10/07/16 05:00 Plt Morphology Comment Not Reportable 10/07/16 05:00 RBC Morphology Not Reportable 10/07/16 05:00 Dimorphic RBCs Not Reportable 10/07/16 05:00 Polychromasia Not Reportable 10/07/16 05:00 Hypochromasia Rare 10/07/16 05:00 Poikilocytosis Not Reportable 10/07/16 05:00 Anisocytosis 1+ 10/07/16 05:00 Microcytosis Not Reportable 10/07/16 05:00 Macrocytosis Not Reportable 10/07/16 05:00 Spherocytes Not Reportable 10/07/16 05:00 Pappenheimer Bodies Not Reportable 10/07/16 05:00 Sickle Cells Not Reportable 10/07/16 05:00 Target Cells Not Reportable 10/07/16 05:00 Tear Drop Cells Not Reportable 10/07/16 05:00 Ovalocytes Not Reportable 10/07/16 05:00 Stomatocytes Few 10/06/16 03:50 Helmet Cells Not Reportable 10/07/16 05:00 Monet-Mertens Bodies Not Reportable 10/07/16 05:00 Wayland Rings Not Reportable 10/07/16 05:00 Rapidan Cells Not Reportable 10/07/16 05:00 Bite Cells Not Reportable 10/07/16 05:00 Crenated Cell Not Reportable 10/07/16 05:00 Elliptocytes Not Reportable 10/07/16 05:00 Acanthocytes (Spur) Not Reportable 10/07/16 05:00 Rouleaux Not Reportable 10/07/16 05:00 Hemoglobin C Crystals Not Reportable 10/07/16 05:00 Schistocytes Not Reportable 10/07/16 05:00 Malaria parasites Not Reportable 10/07/16 05:00 ESR > 140.0 mm/Hr (0-20) 09/08/16 11:48 Jun Bodies Not Reportable 10/07/16 05:00 Hem Pathologist Commnt No 10/07/16 05:00 PT 13.8 Sec. (12.2-14.9) 09/15/16 05:00 INR 1.01 (0.87-1.13) 09/15/16 05:00 APTT 24.4 Sec. (24.2-36.6) 09/15/16 05:00 Thrombin Time 16.8 Sec. (15.1-19.6) 09/03/16 00:10 Fibrinogen 750 mg/dl (211-480) H 09/08/16 11:48 Lupus Anticoagulant see below 09/12/16 09:59 LA PTT Baseline See scanned report 09/12/16 09:59 dRVVT Confirm Interp Positive (Negative) H 09/12/16 09:59 dRVVT Screen 50:50 See scanned report 09/12/16 09:59 dRVVT Mix Interpret See scanned report 09/12/16 09:59 Protein C Antigen 122 % (70-140) 09/08/16 15:35 Free Protein S 97 % normal (50-147) 09/08/16 15:35 Total Protein S 109 % (70-140) 09/08/16 15:35 Antithrombin III Ag 100 % (80-120) 09/08/16 15:35 Heparin Anti-Xa, Unfract Negative (Negative) 09/29/16 13:35 Factor V Activity 182 % (65-150) H 09/08/16 15:35 POC ABG pH 7.310 (7.35-7.45) L 10/06/16 04:53 POC ABG pCO2 49.0 (35-45) H 10/06/16 04:53 POC ABG pO2 84 (80-105) 10/06/16 04:53 POC ABG HCO3 24.7 10/06/16 04:53 POC ABG Total CO2 26 10/06/16 04:53 POC ABG O2 Sat 95 10/06/16 04:53 POC ABG Base Excess -2 10/06/16 04:53 FiO2 28 % 10/06/16 04:53 Sodium 130 mmol/L (137-145) L 10/07/16 10:00 Potassium 3.2 mmol/L (3.6-5.0) L 10/07/16 10:00 Chloride 93.9 mmol/L (98-107) L 10/07/16 10:00 Carbon Dioxide 20 mmol/L (22-30) L 10/07/16 10:00 Anion Gap 19 mmol/L 10/07/16 10:00 BUN 44 mg/dL (7-17) H 10/07/16 10:00 Creatinine 2.7 mg/dL (0.7-1.2) H 10/07/16 10:00 Estimated GFR 23 ml/min 10/07/16 10:00 BUN/Creatinine Ratio 16.29 % 10/07/16 10:00 Glucose 129 mg/dL (65-100) H 10/07/16 10:00 POC Glucose 130 (70-105) H 10/07/16 18:10 Osmolality 351 Mosm/kg 09/16/16 11:47 Lactic Acid 4.50 mmol/L (0.7-2.0) H* 09/28/16 07:25 Calcium 7.4 mg/dL (8.4-10.2) L 10/07/16 10:00 Phosphorus 3.20 mg/dL (2.5-4.5) 10/07/16 10:00 Magnesium 1.90 mg/dL (1.7-2.3) 10/07/16 10:00 Total Bilirubin 0.60 mg/dL (0.1-1.2) 10/07/16 10:00 Direct Bilirubin 0.9 mg/dL (0-0.2) H 09/29/16 06:45 Indirect Bilirubin 0.3 mg/dL 09/29/16 06:45 AST 32 units/L (5-40) 10/07/16 10:00 ALT 6 units/L (7-56) L 10/07/16 10:00 Alkaline Phosphatase 195 units/L (35-129) H 10/07/16 10:00 Ammonia 27.0 umol/L (25-60) 09/07/16 08:37 Total Creatine Kinase 121 units/L (30-135) 09/29/16 20:12 CK-MB (CK-2) < 1.0 ng/mL (0.0-4.0) 09/29/16 20:12 CK-MB (CK-2) Rel Index 0.8 (0-4) 09/29/16 20:12 Troponin T 0.204 ng/mL (0.00-0.029) H* 09/29/16 20:12 C-Reactive Protein 19.40 mg/dL (0.00-1.30) H 10/07/16 10:00 Total Protein 4.9 g/dL (6.3-8.2) L 10/07/16 10:00 Albumin 1.0 g/dL (3.9-5) L 10/07/16 10:00 Albumin/Globulin Ratio 0.3 % 10/07/16 10:00 Triglycerides 137 mg/dL (2-149) 09/29/16 20:12 Cholesterol 31 mg/dL (50-199) L 09/29/16 20:12 LDL Cholesterol Direct 4 mg/dL (50-130) L 09/29/16 20:12 HDL Cholesterol 3 mg/dL (40-59) L 09/29/16 20:12 Cholesterol/HDL Ratio 10.33 % 09/29/16 20:12 Angiotensin Convert Enz See scanned report 09/08/16 11:48 Serotonin Release Assay See scanned report 09/29/16 13:35 TSH 1.010 mlU/mL (0.270-4.200) 09/07/16 08:37 HCG, Qual Negative (Negative) 09/03/16 00:10 Urine Color Yellow (Yellow) 09/09/16 14:13 Urine Turbidity Slightly-cloudy (Clear) 09/09/16 14:13 Urine pH 5.0 (5.0-7.0) 09/09/16 14:13 Ur Specific [place] 1.012 (1.003-1.030) 09/09/16 14:13 Urine Protein 30 mg/dl mg/dL (Negative) 09/09/16 14:13 Urine Glucose (UA) Neg mg/dL (Negative) 09/09/16 14:13 Urine Ketones Neg mg/dL (Negative) 09/09/16 14:13 Urine Blood Lg (Negative) 09/09/16 14:13 Urine Nitrite Neg (Negative) 09/09/16 14:13 Urine Bilirubin Neg (Negative) 09/09/16 14:13 Urine Urobilinogen < 2.0 mg/dL (<2.0) 09/09/16 14:13 Ur Leukocyte Esterase Sm (Negative) 09/09/16 14:13 Urine WBC (Auto) 25.0 /HPF (0.0-6.0) H 09/09/16 14:13 Urine RBC (Auto) > 182.0 /HPF (0.0-6.0) 09/09/16 14:13 Urine Bacteria (Auto) 1+ /HPF (Negative) 09/09/16 14:13 Urine WBC Clumps 2+ /HPF 09/07/16 02:47 Hyaline Casts 4 /LPF 09/07/16 02:47 Urine Mucus Few /HPF 09/09/16 14:13 Urine Eosinophils None seen (None Seen) 09/07/16 16:00 Urine Total Volume 1350 09/21/16 12:00 Urine Creatinine 54.8 mg/dL (0.1-20.0) H 09/21/16 12:00 Height (in) 67.0 inches 09/21/16 12:00 Weight (lb) 92.0 lbs 09/21/16 12:00 Creatinine Clearance 15 09/21/16 12:00 Urine Sodium 36 mEq/L 09/16/16 19:19 Urine Total Protein 16 mg/dL (5-11.8) H 09/16/16 19:19 Vancomycin Trough 2.3 ug/mL (5.0-20.0) L 09/21/16 13:00 Random Vancomycin 2.3 ug/mL (0-40.0) 09/09/16 03:00 Urine Opiates Screen Presumptive negative 09/03/16 15:11 Urine Methadone Screen Presumptive positive 09/03/16 15:11 Ur Barbiturates Screen Presumptive positive 09/03/16 15:11 Ur Phencyclidine Scrn Presumptive negative 09/03/16 15:11 Ur Amphetamines Screen Presumptive negative 09/03/16 15:11 U Benzodiazepines Scrn Presumptive negative 09/03/16 15:11 Urine Cocaine Screen Presumptive negative 09/03/16 15:11 U Marijuana (THC) Screen Presumptive positive 09/03/16 15:11 Drugs of Abuse Note Disclamer 09/03/16 15:11 Rheumatoid Factor 24 IU/ml (0-13) H 09/08/16 11:48 SAHIL Screen Negative (Negative) 09/07/16 09:20 Proteinase 3 (PR3) Ab <1.0 AI (<1.0) 09/07/16 09:20 Myeloperoxidase Ab <1.0 AI (<1.0) 09/07/16 09:20 Sjogren's Antibody <1.0 AI (<1.0) 09/08/16 15:35 Scl-70 Scleroderma Ab <1.0 AI (<1.0) 09/08/16 15:35 Centromere B Antibody <1.0 AI (<1.0) 09/08/16 12:02 Heparin-induced Plt Ab Negative (Negative) 09/29/16 13:35 UF Heparin High Dose 11 % Release 09/29/16 13:35 SUDHIR UFH Low Dose 0.1 6 % Release 09/29/16 13:35 SUDHIR UFH Low Dose 0.5 8 % Release 09/29/16 13:35 Cardiolipid IgG Ab <14 GPL (<=14) 09/12/16 09:59 Cardiolipid IgA Ab <11 APL (<=11) 09/12/16 09:59 Cardiolipid IgM Ab <12 MPL (<=12) 09/12/16 09:59 Complement C3 148 mg/dL (90-180) 09/07/16 09:20 Complement C4 58 mg/dL (16-47) H 09/07/16 09:20 RPR Nonreactive (Nonreactive) 09/08/16 11:48 Hepatitis A IgM Ab Non-reactive (NonReactive) 09/24/16 14:40 Hep Bs Antigen Non-reactive (Negative) 09/24/16 14:40 Hep B Core IgM Ab Non-reactive (NonReactive) 09/24/16 14:40 Hepatitis C Antibody Non-reactive (NonReactive) 09/24/16 14:40 HIV 1&2 Antibody Rapid Non react (Non React) 09/08/16 11:48 HIV P24 Antigen Non react (Non React) 09/08/16 11:48 Blood Type A POSITIVE 10/05/16 15:50 Antibody Screen Negative 10/05/16 15:50 DELORIS Antibody Screen Negative 09/25/16 10:30 Crossmatch See Detail 10/05/16 15:50
[2016-10-07] MEDS ORDERED: TPN ADULT 2,016 ML IV SCH (20:00)
[2016-10-07 20:11] LABS: Bacteria,Urine 3+ /HPF (Negative); Bilirubin,Urine NEG (Negative); Blood,Urine LG (Negative); Color,Urine Amber (Yellow); Mucus,Urine FEW /HPF; RBC,Urine > 182.0 /HPF (0.0-6.0); Urobilinogen,Urine < 2.0 mg/dL (<2.0); WBC,Urine > 182.0 /HPF (0.0-6.0)
[2016-10-07] MEDS: MYCAMINE 100 MG in NACL 0.9% 100 ML IV SCH (21:00)
--- NOTE | 2016-10-07 22:07 | Operative Report ---
PREOPERATIVE DIAGNOSIS: Perforated viscus. POSTOPERATIVE DIAGNOSIS: Gastric perforation. OPERATIVE PROCEDURE: 1. Diagnostic laparoscopy. 2. Wedge gastrectomy repair of gastric perforation. 3. Abdominal washout. 4. Placement of a drain. SURGEON: Merlyn Kerr MD ANIMAL TRAINER SUPERVISOR: None. ANESTHESIA: General with 0.25% Marcaine for local. ESTIMATED BLOOD LOSS: Minimal. COMPLICATIONS: None. INSTRUMENT COUNT: Correct. INDICATIONS: This is a 46-year-old female with a history of a previous PEG placement approximately 2 weeks prior. This was found to be dislodged and there was a question of intraabdominal leakage of contents. Because of her symptomatology, she warranted exploration. This was offered to the family. Risks and benefits were discussed until all questions were answered. She was subsequently brought to the OR. TECHNIQUE: We reviewed the informed consent. The patient was then placed supine upon the table. After adequate anesthesia was reached, we verified the patient. She was then prepped and draped in the usual sterile fashion. A 5 mm incision was made at the level of the umbilicus and a Veress needle was carefully placed at this position. The abdomen was then insufflated to 15 mmHg. A 5 mm trocar was placed through the incision. We introduced the camera briefly examined the abdomen. There was no injury noted. Examination of the abdomen revealed extensive gastric contamination. There was a hole on the anterior surface of the stomach. The gastric tube was noted to be attached to the abdominal wall and no longer in place. There was extensive enteritis and colitis reaction of the abdominal contents to the secretions. At this time, under direct vision and after infiltration of local anesthetic, we placed a 5 mm right upper quadrant port followed by a 12 mm right upper quadrant port. We first identified and approximated the gastric perforation defect left after removal of the PEG using an EndoStitch device with a 2-0 Surgitek stitches were placed. This allowed us to elevate the gastric perforation and then formally closed the defect using an ETS-Flex laparoscopic stapler. A wedge gastrectomy was then performed effectively closing the defect. The specimen was brought out through the 12 mm port and then sent to pathology for further evaluation. At this time, having controlled the leaking gastric contents, we vigorously irrigated the abdominal cavity with several liters of normal saline. Once the irrigant became more clear, we concluded the abdominal washout and then placed a 19-Tamazight [place] drain down in the pelvis, bringing this out through the lateral right 5 mm port, secured using a 2-0 silk. It was then attached to a JUAN bulb. There were no other significant abnormalities that could be taken care of at this time. We then evacuated insufflation, removed all ports and closed all port sites using bo. The umbilical site was closed using a 4-0 Monocryl. The patient tolerated the procedure well. She was transferred to ICU for further critical care. JOB# [id number] AIN/NTS
[2016-10-07] MEDS: LOPRESSOR IV PRN (23:45)
[2016-10-07] MEDS: DILAUDID IV PRN (23:46)
[2016-10-08] MEDS: HumuLIN R SUB-Q SCH ×4 (00:05→17:13)
[2016-10-08] MEDS: APRESOLINE IV PRN (04:52)
[2016-10-08] MEDS: ZOSYN/NS 2.25 GM/50ML 2.25 GM/50 ML BAG IV SCH ×4 (05:51→23:09)
[2016-10-08 06:13] LABS: Hematocrit 44.5 % (30.3-42.9); Hemoglobin 14.4 gm/dl (10.1-14.3); Mean Corpuscular HGB Conc 32 % (30-34); Mean Corpuscular Hemoglobin 28 pg (28-32); Mean Corpuscular Volume 86 fl (79-97); Red Blood Count 5.15 M/mm3 (3.65-5.03); Red Cell Distribution Width 19.5 % (13.2-15.2)
[2016-10-08 06:19] LABS: Platelet Count 56 K/mm3 (140-440)
[2016-10-08 06:35] LABS: BUN/Creatinine Ratio 21.85; Calcium 7.6 mg/dL (8.4-10.2)
[2016-10-08] MEDS: CORDARONE 900 MG in D5W 482 ML IV SCH ×2 (06:52→18:46)
[2016-10-08] MEDS: LOPRESSOR IV PRN (06:53)
[2016-10-08] MEDS: ZOFRAN IV PRN (06:53)
[2016-10-08 07:01] LABS: Band Neutrophils # (Manual) 5.3 K/mm3; Basophils % (Manual) 0 % (0.0-1.8); Eosinophils % (Manual) 0 % (0.0-4.3); Total Cells Counted 100
[2016-10-08 07:02] LABS: Anisocytosis 1+; Toxic Vacuolation Few
[2016-10-08 07:03] LABS: Dohle Bodies Few; Hypochromasia 1+
--- NOTE | 2016-10-08 08:01 | Progress Note ---
Assessment and Plan Acute hypoxic respiratory failure on mechanical ventilation s/p trach and PEG Acute left MCA CVA echocardiogram demonstrates at least moderate LVH but a normal LV systolic function, EF 50-55%. no thrombus visualized on transthoracic echocardiogram. Repeat echo 10/07/2016 - Normal LVEF, no significant valvular abnormalities Dislodged PEG tube s/p repair of gastric perforation with wedge gastrectomy Hypertension s/p hypotension requiring pressor support Acute on chronic renal failure Fungemia Diabetes mellitus Anemia requiring transfusion of PRBCs Thrombocytopenia Hyponatremia Paroxysmal Afib s/p failed cardioversion on 09/25 on amiodarone drip anticoagulation not initiated due to anemia, thrombocytopenia and recent massive CVA Recommendations: Continue medical therapy and conservative cardiac management. Continue IV amiodarone drip until able to resume meds per PEG tube Subjective Date of service: 10/08/16 Principal diagnosis: Acute resp failure on MVS; S/P Acute CVA; Acute Encephalopathy; JUANITA Interval history: No interval changes cardiac aquino Objective Vital Signs Temp Pulse Pulse Pulse Pulse Resp Resp 10/08/16 07:00 83 30 H 10/08/16 06:53 99 H 10/08/16 06:30 89 23 10/08/16 06:00 90 16 10/08/16 05:30 105 H 36 H 10/08/16 05:00 100 H 35 H 10/08/16 04:52 99 H 10/08/16 04:30 100 H 37 H 10/08/16 04:00 98.9 F 106 H 37 H 10/08/16 03:56 99 H 10/08/16 03:30 96 H 32 H 10/08/16 03:00 97 H 27 H 10/08/16 02:30 92 H 33 H 10/08/16 02:00 96 H 35 H 10/08/16 01:30 98 H 37 H 10/08/16 01:00 101 H 22 10/08/16 00:55 101 H 10/08/16 00:30 98 H 32 H 10/08/16 00:00 96 H 27 H 10/07/16 23:46 35 H 10/07/16 23:45 107 H 10/07/16 23:40 99.6 F 10/07/16 23:30 100 H 38 H 10/07/16 23:00 100 H 36 H 10/07/16 22:30 105 H 35 H 10/07/16 22:00 98 H 33 H 10/07/16 21:30 98 H 41 H 10/07/16 21:00 100 H 29 H 10/07/16 20:30 92 H 31 H 10/07/16 20:00 99.6 F 107 H 101 H 110 H 107 H 44 H 35 H 10/07/16 19:30 96 H 32 H 10/07/16 19:00 103 H 32 H 10/07/16 18:30 102 H 18 10/07/16 18:22 105 H 31 H 10/07/16 18:00 104 H 33 H 10/07/16 17:30 106 H 31 H 10/07/16 17:00 107 H 39 H 10/07/16 16:30 95 H 35 H 10/07/16 16:00 99 H 21 10/07/16 15:48 99.8 F H 10/07/16 15:30 97 H 30 H 10/07/16 15:00 105 H 45 H 10/07/16 14:30 99 H 33 H 10/07/16 14:00 104 H 27 H 10/07/16 13:30 101 H 15 10/07/16 13:00 106 H 41 H 10/07/16 12:30 109 H 35 H 10/07/16 12:00 98.7 F 106 H 19 10/07/16 11:30 109 H 24 10/07/16 11:00 111 H 34 H 10/07/16 10:43 101 H 10/07/16 10:30 107 H 21 10/07/16 10:00 93 H 28 H 10/07/16 09:30 109 H 25 H 10/07/16 09:00 102 H 16 10/07/16 08:30 104 H 21 10/07/16 08:00 98.8 F 109 H 32 H BP Pulse Ox Pulse Ox 10/08/16 07:00 125/54 100 10/08/16 06:53 176/80 10/08/16 06:30 176/80 10/08/16 06:00 176/80 100 10/08/16 05:30 174/78 100 10/08/16 05:00 174/78 100 10/08/16 04:52 219/92 10/08/16 04:30 219/92 100 10/08/16 04:00 219/92 99 08/19/17 03:56 219/82 100 19/17 03:30 153/54 99 0819/17 03:00 153/54 100 19/17 02:30 143/54 100 19/17 02:00 143/54 100 19/17 01:30 233/99 99 19/17 01:00 232/95 100 19/17 00:55 232/95 100 19/17 00:30 233/99 100 1917 00:00 233/99 100 18/17 23:46 18/17 23:45 209/99 18/17 23:40 18/17 23:30 209/99 100 18/17 23:00 165/71 100 18/17 22:30 165/71 100 18/17 22:00 165/71 100 18/17 21:30 169/82 100 18/17 21:00 153/87 100 18/17 20:30 172/73 100 18/17 20:00 141/57 100 18/17 19:30 141/57 100 18/17 19:00 151/81 100 18/17 18:30 158/80 100 0818/17 18:22 176/89 100 18/17 18:00 158/80 100 0818/17 17:30 177/86 100 18/17 17:00 182/86 100 18/17 16:30 124/68 100 18/17 16:00 139/70 100 18/17 15:48 0818/17 15:30 140/67 100 18/17 15:00 138/72 100 100 18/17 14:30 145/82 98 18/17 14:00 169/85 99 18/17 13:30 143/79 100 18/17 13:00 141/72 0818/17 12:30 190/99 86 18/17 12:00 142/74 99 18/17 11:30 177/78 99 18/17 11:00 186/82 99 18/17 10:43 210/100 0818/17 10:30 210/100 99 10/07/16 10:00 170/88 99 10/07/16 09:30 193/99 90 10/07/16 09:00 159/82 99 10/07/16 08:30 156/86 98 10/07/16 08:00 79/36 87 - Physical Examination General: Other (intubated via trach) Neck: Positive: neck supple Cardiac: Positive: Reg Rate and Rhythm Lungs: Positive: Ventilated Respirations Abdomen: Positive: Soft, Active Bowel Sounds Extremities: Absent: edema - Labs and Meds Cardiac Enzymes 10/07/16 Range/Units 10:00 AST 32 (5-40) units/L CBC 10/08/16 Range/Units 04:30 WBC 8.7 (4.5-11.0) K/mm3 RBC 5.15 H (3.65-5.03) M/mm3 Hgb 14.4 H D (10.1-14.3) gm/dl Hct 44.5 H D (30.3-42.9) % Plt Count 56 L (140-440) K/mm3 Comprehensive Metabolic Panel 10/07/16 10/08/16 Range/Units 10:00 04:00 Sodium 130 L 132 L (137-145) mmol/L Potassium 3.2 L 3.3 L (3.6-5.0) mmol/L Chloride 93.9 L 93.6 L (98-107) mmol/L Carbon Dioxide 20 L 17 L (22-30) mmol/L BUN 44 H 59 H (7-17) mg/dL Creatinine 2.7 H 2.7 H (0.7-1.2) mg/dL Glucose 129 H 121 H (65-100) mg/dL Calcium 7.4 L 7.6 L (8.4-10.2) mg/dL AST 32 (5-40) units/L ALT 6 L (7-56) units/L Alkaline Phosphatase 195 H (35-129) units/L Total Protein 4.9 L (6.3-8.2) g/dL Albumin 1.0 L (3.9-5) g/dL - Imaging and Cardiology EKG: image reviewed - Allied health notes Allied health notes reviewed: RT
[2016-10-08] MEDS: PROTONIX IV SCH ×2 (09:21→21:49)
--- NOTE | 2016-10-08 11:34 | Progress Note ---
Subjective Principal diagnosis: Acute resp failure on MVS; S/P Acute CVA; Acute Encephalopathy; JUANITA Interval history: Patient was evaluated today for follow-up on multiple renal related issues No acute distress patient was initiated on renal replacement therapy this admission Urine output has been very low Events of 24 hours were noted Vital labs intake and output medications were reviewed Current medications: Reviewed Social history:Reviewed Family history: Reviewed HEENT: No uremic order oral mucosa moist Neck: Supple without any thyromegaly mass or JVD Chest: Clear to auscultation occasional basilar crackles posteriorly Heart: Regular rate and rhythm S1 and S2 heard no S3-S4 Abdomen: Soft nontender no voluntary guarding rigidity or rebound Extremity: Dry skin minimal edema Psychiatry: No agitation and aggression noted Assessment and plan Acute on chronic renal failure; continue to monitor renal function for now, avoid any nephrotoxic medication Urine output is very low, patient may require renal replacement therapy advised the nurse to flush the catheter if needed consider change Current creatinine is holding around 2.7 patient does have history of chronic kidney disease At this time I would like to add Aldactone 25 mg once a day given that she is hypokalemic and presented to the hospital with accelerated hypertension and also does have history of renal artery stenosis Currently the no acute emergent indication for renal replacement therapy Accelerated hypertension: Needs monitoring and adjustment of medications as needed Admitted with acute CVA, continues with supportive care ultrasonogram showed evidence of chronic kidney disease Hypokalemia to monitor and follow Altered mental status: Multifactorial Continue with supportive care Objective - Vital Signs Vital signs: Vital Signs - 12hr 10/07/16 10/07/16 10/07/16 23:40 23:45 23:46 Temperature 99.6 F Pulse Rate 107 H Pulse Rate [ From Monitor] Respiratory 35 H Rate Respiratory Rate [ Generalized] Blood Pressure 209/99 O2 Sat by Pulse Oximetry O2 Sat by Pulse Oximetry [ Assessment] 10/08/16 10/08/16 10/08/16 00:00 00:30 00:55 Temperature Pulse Rate 96 H 98 H 101 H Pulse Rate [ From Monitor] Respiratory 27 H 32 H Rate Respiratory Rate [ Generalized] Blood Pressure 233/99 233/99 232/95 O2 Sat by Pulse 100 100 100 Oximetry O2 Sat by Pulse Oximetry [ Assessment] 10/08/16 10/08/16 10/08/16 01:00 01:30 02:00 Temperature Pulse Rate 101 H 98 H 96 H Pulse Rate [ From Monitor] Respiratory 22 37 H 35 H Rate Respiratory Rate [ Generalized] Blood Pressure 232/95 233/99 143/54 O2 Sat by Pulse 100 99 100 Oximetry O2 Sat by Pulse Oximetry [ Assessment] 10/08/16 10/08/16 10/08/16 02:30 03:00 03:30 Temperature Pulse Rate 92 H 97 H 96 H Pulse Rate [ From Monitor] Respiratory 33 H 27 H 32 H Rate Respiratory Rate [ Generalized] Blood Pressure 143/54 153/54 153/54 O2 Sat by Pulse 100 100 99 Oximetry O2 Sat by Pulse Oximetry [ Assessment] 10/08/16 10/08/16 10/08/16 03:56 04:00 04:30 Temperature 98.9 F Pulse Rate 99 H 101 H 100 H Pulse Rate [ From Monitor] Respiratory 37 H 37 H Rate Respiratory 35 H Rate [ Generalized] Blood Pressure 219/82 219/92 219/92 O2 Sat by Pulse 100 99 100 Oximetry O2 Sat by Pulse Oximetry [ Assessment] 10/08/16 10/08/16 10/08/16 04:52 05:00 05:30 Temperature Pulse Rate 99 H 100 H 105 H Pulse Rate [ From Monitor] Respiratory 35 H 36 H Rate Respiratory Rate [ Generalized] Blood Pressure 219/92 174/78 174/78 O2 Sat by Pulse 100 100 Oximetry O2 Sat by Pulse Oximetry [ Assessment] 10/08/16 10/08/16 10/08/16 06:00 06:30 06:53 Temperature Pulse Rate 90 89 99 H Pulse Rate [ From Monitor] Respiratory 16 23 Rate Respiratory Rate [ Generalized] Blood Pressure 176/80 176/80 176/80 O2 Sat by Pulse 100 Oximetry O2 Sat by Pulse Oximetry [ Assessment] 10/08/16 10/08/16 10/08/16 07:00 07:30 08:00 Temperature 98.3 F 98.4 F Pulse Rate 83 87 89 Pulse Rate [ 88 From Monitor] Respiratory 30 H 29 H 29 H Rate Respiratory Rate [ Generalized] Blood Pressure 125/54 125/54 148/82 O2 Sat by Pulse 100 100 100 Oximetry O2 Sat by Pulse Oximetry [ Assessment] 10/08/16 10/08/16 10/08/16 08:30 09:00 10:15 Temperature Pulse Rate 88 88 Pulse Rate [ From Monitor] Respiratory 29 H 31 H Rate Respiratory Rate [ Generalized] Blood Pressure 153/76 148/82 O2 Sat by Pulse 100 100 Oximetry O2 Sat by Pulse 100 Oximetry [ Assessment] 10/08/16 10:22 Temperature Pulse Rate 93 H Pulse Rate [ From Monitor] Respiratory 38 H Rate Respiratory Rate [ Generalized] Blood Pressure 134/86 O2 Sat by Pulse 100 Oximetry O2 Sat by Pulse Oximetry [ Assessment] - Lab 10/09/16 16:20 10/09/16 03:45 Most recent lab results Calcium 7.6 mg/dL (8.4-10.2) L 10/08/16 04:00 Phosphorus 3.70 mg/dL (2.5-4.5) 10/08/16 04:00 Magnesium 2.10 mg/dL (1.7-2.3) 10/08/16 04:00 Urine Creatinine 54.8 mg/dL (0.1-20.0) H 09/21/16 12:00 Urine Sodium 36 mEq/L 09/16/16 19:19 Urine Total Protein 16 mg/dL (5-11.8) H 09/16/16 19:19
--- NOTE | 2016-10-08 12:10 | Progress Note ---
Assessment and Plan (1) Acute respiratory failure with hypoxia Current Visit: Yes Status: Acute Plan to address problem: - continue aspiration precautions / address VAP bundles - continue to wean oxygen for MAP > 94% - continue bronchodilators and pulmonary toilet - s/p tracheostomy - continue daily PSV trials as tolerated (2) Acute CVA (cerebrovascular accident) Current Visit: Yes Status: Acute Plan to address problem: - out of tpA window (initially stopped due to uncontrolled HTN) - Left MCA teritory stroke with some midline shift on last CT - seen by neurology and prognosis for recovery of mental status guarded to poor - optimizing secondary prevention modalities now (BP, lipid anti-platelet therapy) - off systemic steroids now (started earlier for edema) (3) Hypertensive emergency Current Visit: Yes Status: Acute Plan to address problem: - stopped all antihypertensives while septic - following cllinically (4) Obesity (BMI 35.0-39.9 without comorbidity) Current Visit: Yes Status: Chronic Plan to address problem: - nutrition consult placed for enteral formulation - follow clinically (5) Type 2 diabetes mellitus Current Visit: Yes Status: Chronic Qualifiers: Diabetes mellitus complication status: D Diabetes mellitus complication detail: D Diabetic retinopathy severity: D Proliferative retinopathy type: P Diabetes mellitus macular edema: D Diabetes mellitus long goods drier insulin use : D Laterality: L Chronic kidney disease stage: C Plan to address problem: - continue SSI - discontinued lantus re: hypoglycemia (6) Leukocytosis (leucocytosis) Current Visit: Yes Status: Acute Qualifiers: Leukocytosis type: leukemoid reaction Qualified Code(s): D72.823 - Leukemoid reaction Plan to address problem: - continue cancidas and de-escalate per ID recs - clinically improved (7) Agitation Current Visit: Yes Status: Acute Plan to address problem: - prn sedation / analgesia - tapered off seroquel for now (8) Atrial fibrillation Current Visit: Yes Status: Acute Qualifiers: Atrial fibrillation type: A Plan to address problem: - failed cardioversion earlier - cardiology evaluation ongoing - back in A-fib - continue amiodarone drip (change to p.o. once tolerating enterally) (9) JUANITA (acute kidney injury) Current Visit: Yes Status: Acute Plan to address problem: - on Dialysis now - continue HD/UF per nephrology recommendations - none today but remains oliguric (10) Pyrexia of unknown origin Current Visit: Yes Status: Acute Plan to address problem: - dopplers negative for DVT - continue to treat with AB;'s empirically - continue micafungin (11) Severe sepsis Current Visit: Yes Status: Acute Plan to address problem: - resume vasopressors for MAP < 60mmHg not responsive to volume - all central vascular access has been discontinued after fungemia reported - care plan formulated with ID input - BC's from 09/27/16 growing in 1of 2 but still no ID yet - continue micafungin per ID recs and stop date - wound care nurse also managing back wounds - clinically stable and hemodynamically improved (12) Emesis Current Visit: Yes Status: Acute Qualifiers: Vomiting type: V Vomiting Intractability: V Nausea presence: N Plan to address problem: - s/p surgical repair of gastric perforation - continue TPN for now (13) Discharge planning issues Current Visit: Yes Status: Acute Plan to address problem: - she remains critically ill on life sustaining interventions including MVS and at risk for further acute deterioration including .....30' CCT ....retirement prognosis is guarded Subjective Date of service: 10/08/16 Principal diagnosis: Acute resp failure on MVS; S/P Acute CVA; Acute Encephalopathy; JUANITA Interval history: Seen and examined at bedside; 24 hour events reviewed; nursing and respiratory care staff consulted; no adverse overnight events reported to me; getting cleaned at time of my examination; gutierrez catheter being changed out but remains oliguric; no emesis or overt aspiration; tolerating weaning today Objective Vital Signs - 12hr 10/08/16 10/08/16 10/08/16 00:30 00:55 01:00 Temperature Pulse Rate 98 H 101 H 101 H Pulse Rate [ From Monitor] Respiratory 32 H 22 Rate Respiratory Rate [ Generalized] Blood Pressure 233/99 232/95 232/95 O2 Sat by Pulse 100 100 100 Oximetry O2 Sat by Pulse Oximetry [ Assessment] 10/08/16 10/08/16 10/08/16 01:30 02:00 02:30 Temperature Pulse Rate 98 H 96 H 92 H Pulse Rate [ From Monitor] Respiratory 37 H 35 H 33 H Rate Respiratory Rate [ Generalized] Blood Pressure 233/99 143/54 143/54 O2 Sat by Pulse 99 100 100 Oximetry O2 Sat by Pulse Oximetry [ Assessment] 10/08/16 10/08/1610/08/17 03:00 03:30 03:56 Temperature Pulse Rate 97 H 96 H 99 H Pulse Rate [ From Monitor] Respiratory 27 H 32 H Rate Respiratory Rate [ Generalized] Blood Pressure 153/54 153/54 219/82 O2 Sat by Pulse 100 99 100 Oximetry O2 Sat by Pulse Oximetry [ Assessment] 10/08/16 10/08/16 10/08/16 04:00 04:30 04:52 Temperature 98.9 F Pulse Rate 101 H 100 H 99 H Pulse Rate [ From Monitor] Respiratory 37 H 37 H Rate Respiratory 35 H Rate [ Generalized] Blood Pressure 219/92 219/92 219/92 O2 Sat by Pulse 99 100 Oximetry O2 Sat by Pulse Oximetry [ Assessment] 10/08/16 10/08/16 10/08/16 05:00 05:30 06:00 Temperature Pulse Rate 100 H 105 H 90 Pulse Rate [ From Monitor] Respiratory 35 H 36 H 16 Rate Respiratory Rate [ Generalized] Blood Pressure 174/78 174/78 176/80 O2 Sat by Pulse 100 100 100 Oximetry O2 Sat by Pulse Oximetry [ Assessment] 10/08/16 10/08/16 10/08/16 06:30 06:53 07:00 Temperature 98.3 F Pulse Rate 89 99 H 83 Pulse Rate [ From Monitor] Respiratory 23 30 H Rate Respiratory Rate [ Generalized] Blood Pressure 176/80 176/80 125/54 O2 Sat by Pulse 100 Oximetry O2 Sat by Pulse Oximetry [ Assessment] 10/08/16 10/08/16 10/08/16 07:30 08:00 08:30 Temperature 98.4 F Pulse Rate 87 89 88 Pulse Rate [ 88 From Monitor] Respiratory 29 H 29 H 29 H Rate Respiratory Rate [ Generalized] Blood Pressure 125/54 148/82 153/76 O2 Sat by Pulse 100 100 100 Oximetry O2 Sat by Pulse Oximetry [ Assessment] 10/08/16 10/08/16 10/08/16 09:00 09:30 10:00 Temperature Pulse Rate 88 86 87 Pulse Rate [ From Monitor] Respiratory 31 H 30 H 31 H Rate Respiratory Rate [ Generalized] Blood Pressure 148/82 148/82 134/86 O2 Sat by Pulse 100 100 100 Oximetry O2 Sat by Pulse Oximetry [ Assessment] 10/08/16 10/08/16 10/08/16 10:15 10:22 10:30 Temperature Pulse Rate 93 H 90 Pulse Rate [ From Monitor] Respiratory 38 H 36 H Rate Respiratory Rate [ Generalized] Blood Pressure 134/86 134/86 O2 Sat by Pulse 100 100 Oximetry O2 Sat by Pulse 100 Oximetry [ Assessment] 10/08/16 10/08/16 11:00 11:30 Temperature Pulse Rate 88 93 H Pulse Rate [ From Monitor] Respiratory 35 H 35 H Rate Respiratory Rate [ Generalized] Blood Pressure 156/72 156/72 O2 Sat by Pulse 100 100 Oximetry O2 Sat by Pulse Oximetry [ Assessment] Constitutional: no acute distress, other (grimaces with moving) Eyes: non-icteric, other (tracheostomy tube in midline of neck) ENT: oropharynx moist Neck: supple, no lymphadenopathy Effort: mildly labored Ascultation: Bilateral: rales Cardiovascular: regular rate and rhythm Gastrointestinal: hypoactive bowel sounds, soft, non-tender, non-distended Integumentary: other (erythema to skin of back with some healing areas; no obvious TEN's features) Extremities: no cyanosis, no edema, pulses normal, no ischemia or petechiae Neurologic: pupils equal and round, other (sedated) Psychiatric: other (unable to assess) CBC and BMP: 10/08/16 04:30 10/08/16 04:00 ABG, PT/INR, D-dimer: ABG POC ABG pH 7.310 (7.35-7.45) L 10/06/16 04:53 POC ABG pCO2 49.0 (35-45) H 10/06/16 04:53 POC ABG pO2 84 (80-105) 10/06/16 04:53 POC ABG HCO3 24.7 10/06/16 04:53 POC ABG Total CO2 26 10/06/16 04:53 POC ABG O2 Sat 95 10/06/16 04:53 PT/INR, D-dimer PT 13.8 Sec. (12.2-14.9) 09/15/16 05:00 INR 1.01 (0.87-1.13) 09/15/16 05:00 Abnormal lab findings: Abnormal Labs 09/03/16 09/03/16 09/03/16 12:12 15:07 16:20 WBC RBC Hgb Hct MCV MCH MCHC RDW Plt Count Lymph % (Auto) Johnson % (Auto) Lymph # Johnson # Seg Neutrophils % Seg Neuts % (Manual) Lymphocytes % (Manual) Monocytes % (Manual) Eosinophils % (Manual) Basophils % (Manual) Nucleated RBC % Seg Neutrophils # Seg Neutrophils # Man Lymphocytes # (Manual) Monocytes # (Manual) Eosinophils # (Manual) Fibrinogen dRVVT Confirm Interp Factor V Activity POC ABG pH 7.452 H POC ABG pCO2 POC ABG pO2 Sodium Potassium Chloride Carbon Dioxide BUN Creatinine Glucose POC Glucose 178 H Lactic Acid Calcium Phosphorus 2.20 L Magnesium 1.60 L Direct Bilirubin ALT Alkaline Phosphatase Troponin T C-Reactive Protein Total Protein Albumin Triglycerides Cholesterol LDL Cholesterol Direct HDL Cholesterol Urine WBC (Auto) Urine Creatinine Urine Total Protein Vancomycin Trough Rheumatoid Factor Complement C4 Crossmatch 09/03/16 09/03/16 09/03/16 17:57 17:58 23:50 WBC RBC Hgb Hct MCV MCH MCHC RDW Plt Count Lymph % (Auto) Johnson % (Auto) Lymph # Johnson # Seg Neutrophils % Seg Neuts % (Manual) Lymphocytes % (Manual) Monocytes % (Manual) Eosinophils % (Manual) Basophils % (Manual) Nucleated RBC % Seg Neutrophils # Seg Neutrophils # Man Lymphocytes # (Manual) Monocytes # (Manual) Eosinophils # (Manual) Fibrinogen dRVVT Confirm Interp Factor V Activity POC ABG pH POC ABG pCO2 POC ABG pO2 Sodium Potassium Chloride Carbon Dioxide BUN Creatinine Glucose POC Glucose 162 H 145 H Lactic Acid Calcium Phosphorus 2.30 L Magnesium Direct Bilirubin ALT Alkaline Phosphatase Troponin T C-Reactive Protein Total Protein Albumin Triglycerides Cholesterol LDL Cholesterol Direct HDL Cholesterol Urine WBC (Auto) Urine Creatinine Urine Total Protein Vancomycin Trough Rheumatoid Factor Complement C4 Crossmatch 09/04/16 09/04/16 09/04/16 03:31 03:31 05:42 WBC RBC Hgb 9.7 L D Hct MCV 72 L MCH 23 L MCHC RDW 17.5 H Plt Count Lymph % (Auto) 11.1 L Johnson % (Auto) Lymph # Johnson # Seg Neutrophils % 84.3 H Seg Neuts % (Manual) Lymphocytes % (Manual) Monocytes % (Manual) Eosinophils % (Manual) Basophils % (Manual) Nucleated RBC % Seg Neutrophils # 8.9 H Seg Neutrophils # Man Lymphocytes # (Manual) Monocytes # (Manual) Eosinophils # (Manual) Fibrinogen dRVVT Confirm Interp Factor V Activity POC ABG pH POC ABG pCO2 POC ABG pO2 Sodium 135 L Potassium 2.9 L* Chloride 97.2 L Carbon Dioxide 19 L BUN Creatinine 1.7 H Glucose 170 H POC Glucose 152 H Lactic Acid Calcium Phosphorus Magnesium Direct Bilirubin ALT Alkaline Phosphatase Troponin T C-Reactive Protein Total Protein Albumin Triglycerides 160 H Cholesterol LDL Cholesterol Direct HDL Cholesterol 31 L Urine WBC (Auto) Urine Creatinine Urine Total Protein Vancomycin Trough Rheumatoid Factor Complement C4 Crossmatch 09/04/16 09/04/16 09/04/16 11:34 17:46 23:29 WBC RBC Hgb Hct MCV MCH MCHC RDW Plt Count Lymph % (Auto) Johnson % (Auto) Lymph # Johnson # Seg Neutrophils % Seg Neuts % (Manual) Lymphocytes % (Manual) Monocytes % (Manual) Eosinophils % (Manual) Basophils % (Manual) Nucleated RBC % Seg Neutrophils # Seg Neutrophils # Man Lymphocytes # (Manual) Monocytes # (Manual) Eosinophils # (Manual) Fibrinogen dRVVT Confirm Interp Factor V Activity POC ABG pH POC ABG pCO2 POC ABG pO2 Sodium Potassium Chloride Carbon Dioxide BUN Creatinine Glucose POC Glucose 165 H 210 H 139 H Lactic Acid Calcium Phosphorus Magnesium Direct Bilirubin ALT Alkaline Phosphatase Troponin T C-Reactive Protein Total Protein Albumin Triglycerides Cholesterol LDL Cholesterol Direct HDL Cholesterol Urine WBC (Auto) Urine Creatinine Urine Total Protein Vancomycin Trough Rheumatoid Factor Complement C4 Crossmatch 09/05/16 09/05/16 09/05/16 04:05 04:05 05:38 WBC RBC Hgb Hct MCV 76 L D MCH 23 L MCHC RDW 17.8 H Plt Count Lymph % (Auto) Johnson % (Auto) Lymph # Johnson # Seg Neutrophils % Seg Neuts % (Manual) Lymphocytes % (Manual) Monocytes % (Manual) Eosinophils % (Manual) Basophils % (Manual) Nucleated RBC % Seg Neutrophils # Seg Neutrophils # Man Lymphocytes # (Manual) Monocytes # (Manual) Eosinophils # (Manual) Fibrinogen dRVVT Confirm Interp Factor V Activity POC ABG pH POC ABG pCO2 POC ABG pO2 Sodium 134 L Potassium Chloride Carbon Dioxide 18 L BUN Creatinine 1.8 H Glucose 192 H POC Glucose 175 H Lactic Acid Calcium Phosphorus Magnesium Direct Bilirubin ALT Alkaline Phosphatase Troponin T C-Reactive Protein Total Protein Albumin Triglycerides Cholesterol LDL Cholesterol Direct HDL Cholesterol Urine WBC (Auto) Urine Creatinine Urine Total Protein Vancomycin Trough Rheumatoid Factor Complement C4 Crossmatch 09/05/16 09/05/16 09/05/16 11:38 17:48 23:22 WBC RBC Hgb Hct MCV MCH MCHC RDW Plt Count Lymph % (Auto) Johnson % (Auto) Lymph # Johnson # Seg Neutrophils % Seg Neuts % (Manual) Lymphocytes % (Manual) Monocytes % (Manual) Eosinophils % (Manual) Basophils % (Manual) Nucleated RBC % Seg Neutrophils # Seg Neutrophils # Man Lymphocytes # (Manual) Monocytes # (Manual) Eosinophils # (Manual) Fibrinogen dRVVT Confirm Interp Factor V Activity POC ABG pH POC ABG pCO2 POC ABG pO2 Sodium Potassium Chloride Carbon Dioxide BUN Creatinine Glucose POC Glucose 164 H 186 H 195 H Lactic Acid Calcium Phosphorus Magnesium Direct Bilirubin ALT Alkaline Phosphatase Troponin T C-Reactive Protein Total Protein Albumin Triglycerides Cholesterol LDL Cholesterol Direct HDL Cholesterol Urine WBC (Auto) Urine Creatinine Urine Total Protein Vancomycin Trough Rheumatoid Factor Complement C4 Crossmatch 09/06/16 09/06/16 09/06/16 04:12 05:59 07:32 WBC RBC Hgb Hct MCV MCH MCHC RDW Plt Count Lymph % (Auto) Johnson % (Auto) Lymph # Johnson # Seg Neutrophils % Seg Neuts % (Manual) Lymphocytes % (Manual) Monocytes % (Manual) Eosinophils % (Manual) Basophils % (Manual) Nucleated RBC % Seg Neutrophils # Seg Neutrophils # Man Lymphocytes # (Manual) Monocytes # (Manual) Eosinophils # (Manual) Fibrinogen dRVVT Confirm Interp Factor V Activity POC ABG pH 7.514 H POC ABG pCO2 29.1 L POC ABG pO2 72 L Sodium 133 L Potassium 3.4 L Chloride 94.9 L Carbon Dioxide 19 L BUN 30 H Creatinine 2.1 H Glucose 139 H POC Glucose 146 H Lactic Acid Calcium Phosphorus Magnesium Direct Bilirubin ALT Alkaline Phosphatase Troponin T C-Reactive Protein Total Protein Albumin Triglycerides Cholesterol LDL Cholesterol Direct HDL Cholesterol Urine WBC (Auto) Urine Creatinine Urine Total Protein Vancomycin Trough Rheumatoid Factor Complement C4 Crossmatch 09/06/16 09/06/16 09/06/16 11:57 17:58 19:02 WBC RBC Hgb Hct MCV MCH MCHC RDW Plt Count Lymph % (Auto) Johnson % (Auto) Lymph # Johnson # Seg Neutrophils % Seg Neuts % (Manual) Lymphocytes % (Manual) Monocytes % (Manual) Eosinophils % (Manual) Basophils % (Manual) Nucleated RBC % Seg Neutrophils # Seg Neutrophils # Man Lymphocytes # (Manual) Monocytes # (Manual) Eosinophils # (Manual) Fibrinogen dRVVT Confirm Interp Factor V Activity POC ABG pH 7.465 H POC ABG pCO2 32.0 L POC ABG pO2 Sodium Potassium Chloride Carbon Dioxide BUN Creatinine Glucose POC Glucose 165 H 160 H Lactic Acid Calcium Phosphorus Magnesium Direct Bilirubin ALT Alkaline Phosphatase Troponin T C-Reactive Protein Total Protein Albumin Triglycerides Cholesterol LDL Cholesterol Direct HDL Cholesterol Urine WBC (Auto) Urine Creatinine Urine Total Protein Vancomycin Trough Rheumatoid Factor Complement C4 Crossmatch 09/06/16 09/07/16 09/07/16 23:45 02:47 02:47 WBC RBC Hgb Hct MCV MCH MCHC RDW Plt Count Lymph % (Auto) Johnson % (Auto) Lymph # Johnson # Seg Neutrophils % Seg Neuts % (Manual) Lymphocytes % (Manual) Monocytes % (Manual) Eosinophils % (Manual) Basophils % (Manual) Nucleated RBC % Seg Neutrophils # Seg Neutrophils # Man Lymphocytes # (Manual) Monocytes # (Manual) Eosinophils # (Manual) Fibrinogen dRVVT Confirm Interp Factor V Activity POC ABG pH POC ABG pCO2 POC ABG pO2 Sodium Potassium Chloride Carbon Dioxide BUN Creatinine Glucose POC Glucose 204 H Lactic Acid Calcium Phosphorus Magnesium Direct Bilirubin ALT Alkaline Phosphatase Troponin T C-Reactive Protein Total Protein Albumin Triglycerides Cholesterol LDL Cholesterol Direct HDL Cholesterol Urine WBC (Auto) 68.0 H Urine Creatinine 106.1 H Urine Total Protein Vancomycin Trough Rheumatoid Factor Complement C4 Crossmatch 09/07/16 09/07/16 09/07/16 04:50 06:19 06:39 WBC RBC Hgb Hct MCV MCH MCHC RDW Plt Count Lymph % (Auto) Johnson % (Auto) Lymph # Johnson # Seg Neutrophils % Seg Neuts % (Manual) Lymphocytes % (Manual) Monocytes % (Manual) Eosinophils % (Manual) Basophils % (Manual) Nucleated RBC % Seg Neutrophils # Seg Neutrophils # Man Lymphocytes # (Manual) Monocytes # (Manual) Eosinophils # (Manual) Fibrinogen dRVVT Confirm Interp Factor V Activity POC ABG pH 7.457 H POC ABG pCO2 32.1 L POC ABG pO2 76 L Sodium 132 L Potassium Chloride 94.7 L Carbon Dioxide BUN 53 H Creatinine 2.9 H Glucose 151 H POC Glucose 149 H Lactic Acid Calcium Phosphorus Magnesium Direct Bilirubin ALT Alkaline Phosphatase Troponin T C-Reactive Protein Total Protein Albumin Triglycerides Cholesterol LDL Cholesterol Direct HDL Cholesterol Urine WBC (Auto) Urine Creatinine Urine Total Protein Vancomycin Trough Rheumatoid Factor Complement C4 Crossmatch 09/07/16 09/07/16 09/07/16 09:20 11:43 11:43 WBC 19.4 H RBC Hgb 8.3 L Hct 26.4 L D MCV 72 L D MCH 22 L MCHC RDW 17.9 H Plt Count Lymph % (Auto) 8.5 L Johnson % (Auto) Lymph # Johnson # 1.0 H Seg Neutrophils % 85.8 H Seg Neuts % (Manual) Lymphocytes % (Manual) Monocytes % (Manual) Eosinophils % (Manual) Basophils % (Manual) Nucleated RBC % Seg Neutrophils # 16.6 H Seg Neutrophils # Man Lymphocytes # (Manual) Monocytes # (Manual) Eosinophils # (Manual) Fibrinogen dRVVT Confirm Interp Factor V Activity POC ABG pH POC ABG pCO2 POC ABG pO2 Sodium 134 L Potassium Chloride 97.2 L Carbon Dioxide 20 L BUN 58 H Creatinine 2.9 H Glucose 147 H POC Glucose Lactic Acid Calcium Phosphorus 2.40 L Magnesium 2.40 H Direct Bilirubin ALT Alkaline Phosphatase Troponin T C-Reactive Protein Total Protein 5.8 L Albumin 2.2 L Triglycerides Cholesterol LDL Cholesterol Direct HDL Cholesterol Urine WBC (Auto) Urine Creatinine Urine Total Protein Vancomycin Trough Rheumatoid Factor Complement C4 58 H Crossmatch 09/07/16 09/07/16 09/07/16 11:50 16:00 17:31 WBC RBC Hgb Hct MCV MCH MCHC RDW Plt Count Lymph % (Auto) Johnson % (Auto) Lymph # Johnson # Seg Neutrophils % Seg Neuts % (Manual) Lymphocytes % (Manual) Monocytes % (Manual) Eosinophils % (Manual) Basophils % (Manual) Nucleated RBC % Seg Neutrophils # Seg Neutrophils # Man Lymphocytes # (Manual) Monocytes # (Manual) Eosinophils # (Manual) Fibrinogen dRVVT Confirm Interp Factor V Activity POC ABG pH POC ABG pCO2 POC ABG pO2 158 H Sodium Potassium Chloride Carbon Dioxide BUN Creatinine Glucose POC Glucose 175 H Lactic Acid Calcium Phosphorus Magnesium Direct Bilirubin ALT Alkaline Phosphatase Troponin T C-Reactive Protein Total Protein Albumin Triglycerides Cholesterol LDL Cholesterol Direct HDL Cholesterol Urine WBC (Auto) Urine Creatinine 66.3 H Urine Total Protein Vancomycin Trough Rheumatoid Factor Complement C4 Crossmatch 09/07/16 09/08/16 09/08/16 23:50 05:46 06:18 WBC 17.8 H RBC 3.58 L Hgb 8.1 L Hct 25.5 L MCV 71 L MCH 23 L MCHC RDW 18.4 H Plt Count Lymph % (Auto) Johnson % (Auto) Lymph # Johnson # Seg Neutrophils % Seg Neuts % (Manual) 92.0 H Lymphocytes % (Manual) 6.0 L Monocytes % (Manual) Eosinophils % (Manual) Basophils % (Manual) Nucleated RBC % Seg Neutrophils # Seg Neutrophils # Man 16.4 H Lymphocytes # (Manual) 1.1 L Monocytes # (Manual) Eosinophils # (Manual) Fibrinogen dRVVT Confirm Interp Factor V Activity POC ABG pH POC ABG pCO2 34.3 L POC ABG pO2 71 L Sodium Potassium Chloride Carbon Dioxide BUN Creatinine Glucose POC Glucose 216 H Lactic Acid Calcium Phosphorus Magnesium Direct Bilirubin ALT Alkaline Phosphatase Troponin T C-Reactive Protein Total Protein Albumin Triglycerides Cholesterol LDL Cholesterol Direct HDL Cholesterol Urine WBC (Auto) Urine Creatinine Urine Total Protein Vancomycin Trough Rheumatoid Factor Complement C4 Crossmatch 09/08/16 09/08/16 09/08/16 06:18 06:51 10:55 WBC RBC Hgb Hct MCV MCH MCHC RDW Plt Count Lymph % (Auto) Johnson % (Auto) Lymph # Johnson # Seg Neutrophils % Seg Neuts % (Manual) Lymphocytes % (Manual) Monocytes % (Manual) Eosinophils % (Manual) Basophils % (Manual) Nucleated RBC % Seg Neutrophils # Seg Neutrophils # Man Lymphocytes # (Manual) Monocytes # (Manual) Eosinophils # (Manual) Fibrinogen dRVVT Confirm Interp Factor V Activity POC ABG pH POC ABG pCO2 POC ABG pO2 Sodium 133 L Potassium Chloride 96.9 L Carbon Dioxide 20 L BUN 63 H Creatinine 2.7 H Glucose 195 H POC Glucose 204 H 169 H Lactic Acid Calcium Phosphorus Magnesium Direct Bilirubin ALT Alkaline Phosphatase Troponin T C-Reactive Protein Total Protein Albumin Triglycerides Cholesterol LDL Cholesterol Direct HDL Cholesterol Urine WBC (Auto) Urine Creatinine Urine Total Protein Vancomycin Trough Rheumatoid Factor Complement C4 Crossmatch 09/08/16 09/08/16 09/08/16 11:48 11:48 11:48 WBC RBC Hgb Hct MCV MCH MCHC RDW Plt Count Lymph % (Auto) Johnson % (Auto) Lymph # Johnson # Seg Neutrophils % Seg Neuts % (Manual) Lymphocytes % (Manual) Monocytes % (Manual) Eosinophils % (Manual) Basophils % (Manual) Nucleated RBC % Seg Neutrophils # Seg Neutrophils # Man Lymphocytes # (Manual) Monocytes # (Manual) Eosinophils # (Manual) Fibrinogen 750 H dRVVT Confirm Interp Factor V Activity POC ABG pH POC ABG pCO2 POC ABG pO2 Sodium Potassium Chloride Carbon Dioxide BUN Creatinine Glucose POC Glucose Lactic Acid Calcium Phosphorus Magnesium Direct Bilirubin ALT Alkaline Phosphatase Troponin T C-Reactive Protein 15.70 H Total Protein Albumin Triglycerides Cholesterol LDL Cholesterol Direct HDL Cholesterol Urine WBC (Auto) Urine Creatinine Urine Total Protein Vancomycin Trough Rheumatoid Factor 24 H Complement C4 Crossmatch 09/08/16 09/08/16 09/09/16 15:35 18:25 00:24 WBC RBC Hgb Hct MCV MCH MCHC RDW Plt Count Lymph % (Auto) Johnson % (Auto) Lymph # Johnson # Seg Neutrophils % Seg Neuts % (Manual) Lymphocytes % (Manual) Monocytes % (Manual) Eosinophils % (Manual) Basophils % (Manual) Nucleated RBC % Seg Neutrophils # Seg Neutrophils # Man Lymphocytes # (Manual) Monocytes # (Manual) Eosinophils # (Manual) Fibrinogen dRVVT Confirm Interp Factor V Activity 182 H POC ABG pH POC ABG pCO2 POC ABG pO2 Sodium Potassium Chloride Carbon Dioxide BUN Creatinine Glucose POC Glucose 184 H 216 H Lactic Acid Calcium Phosphorus Magnesium Direct Bilirubin ALT Alkaline Phosphatase Troponin T C-Reactive Protein Total Protein Albumin Triglycerides Cholesterol LDL Cholesterol Direct HDL Cholesterol Urine WBC (Auto) Urine Creatinine Urine Total Protein Vancomycin Trough Rheumatoid Factor Complement C4 Crossmatch 09/09/16 09/09/16 09/09/16 03:00 03:00 04:04 WBC 27.9 H RBC Hgb 8.7 L Hct 28.1 L MCV 72 L MCH 22 L MCHC RDW 18.4 H Plt Count 485 H Lymph % (Auto) Johnson % (Auto) Lymph # Johnson # Seg Neutrophils % Seg Neuts % (Manual) 77.0 H Lymphocytes % (Manual) 9.0 L Monocytes % (Manual) Eosinophils % (Manual) Basophils % (Manual) Nucleated RBC % Seg Neutrophils # Seg Neutrophils # Man 21.5 H Lymphocytes # (Manual) Monocytes # (Manual) 2.0 H Eosinophils # (Manual) Fibrinogen dRVVT Confirm Interp Factor V Activity POC ABG pH POC ABG pCO2 POC ABG pO2 121 H Sodium 135 L Potassium Chloride 96.3 L Carbon Dioxide 21 L BUN 83 H Creatinine 3.0 H Glucose 135 H POC Glucose Lactic Acid Calcium Phosphorus Magnesium Direct Bilirubin ALT Alkaline Phosphatase Troponin T C-Reactive Protein Total Protein Albumin Triglycerides Cholesterol LDL Cholesterol Direct HDL Cholesterol Urine WBC (Auto) Urine Creatinine Urine Total Protein Vancomycin Trough Rheumatoid Factor Complement C4 Crossmatch 09/09/16 09/09/16 09/09/16 05:41 11:55 14:13 WBC RBC Hgb Hct MCV MCH MCHC RDW Plt Count Lymph % (Auto) Johnson % (Auto) Lymph # Johnson # Seg Neutrophils % Seg Neuts % (Manual) Lymphocytes % (Manual) Monocytes % (Manual) Eosinophils % (Manual) Basophils % (Manual) Nucleated RBC % Seg Neutrophils # Seg Neutrophils # Man Lymphocytes # (Manual) Monocytes # (Manual) Eosinophils # (Manual) Fibrinogen dRVVT Confirm Interp Factor V Activity POC ABG pH POC ABG pCO2 POC ABG pO2 Sodium Potassium Chloride Carbon Dioxide BUN Creatinine Glucose POC Glucose 155 H 186 H Lactic Acid Calcium Phosphorus Magnesium Direct Bilirubin ALT Alkaline Phosphatase Troponin T C-Reactive Protein Total Protein Albumin Triglycerides Cholesterol LDL Cholesterol Direct HDL Cholesterol Urine WBC (Auto) 25.0 H Urine Creatinine Urine Total Protein Vancomycin Trough Rheumatoid Factor Complement C4 Crossmatch 09/09/16 09/09/16 09/10/16 17:33 23:13 05:09 WBC RBC Hgb Hct MCV MCH MCHC RDW Plt Count Lymph % (Auto) Johnson % (Auto) Lymph # Johnson # Seg Neutrophils % Seg Neuts % (Manual) Lymphocytes % (Manual) Monocytes % (Manual) Eosinophils % (Manual) Basophils % (Manual) Nucleated RBC % Seg Neutrophils # Seg Neutrophils # Man Lymphocytes # (Manual) Monocytes # (Manual) Eosinophils # (Manual) Fibrinogen dRVVT Confirm Interp Factor V Activity POC ABG pH POC ABG pCO2 POC ABG pO2 74 L Sodium Potassium Chloride Carbon Dioxide BUN Creatinine Glucose POC Glucose 211 H 215 H Lactic Acid Calcium Phosphorus Magnesium Direct Bilirubin ALT Alkaline Phosphatase Troponin T C-Reactive Protein Total Protein Albumin Triglycerides Cholesterol LDL Cholesterol Direct HDL Cholesterol Urine WBC (Auto) Urine Creatinine Urine Total Protein Vancomycin Trough Rheumatoid Factor Complement C4 Crossmatch 09/10/16 09/10/16 09/10/16 05:17 05:17 11:31 WBC 15.8 H RBC 3.25 L Hgb 7.3 L Hct 22.9 L MCV 71 L MCH 23 L MCHC RDW 18.4 H Plt Count Lymph % (Auto) Johnson % (Auto) Lymph # Johnson # Seg Neutrophils % Seg Neuts % (Manual) 91.0 H Lymphocytes % (Manual) 4.0 L Monocytes % (Manual) Eosinophils % (Manual) Basophils % (Manual) Nucleated RBC % Seg Neutrophils # Seg Neutrophils # Man 14.4 H Lymphocytes # (Manual) 0.6 L Monocytes # (Manual) Eosinophils # (Manual) Fibrinogen dRVVT Confirm Interp Factor V Activity POC ABG pH POC ABG pCO2 POC ABG pO2 Sodium Potassium Chloride Carbon Dioxide 21 L BUN 93 H Creatinine 2.9 H Glucose 146 H POC Glucose 188 H Lactic Acid Calcium 8.1 L Phosphorus Magnesium Direct Bilirubin ALT Alkaline Phosphatase Troponin T C-Reactive Protein Total Protein Albumin Triglycerides Cholesterol LDL Cholesterol Direct HDL Cholesterol Urine WBC (Auto) Urine Creatinine Urine Total Protein Vancomycin Trough Rheumatoid Factor Complement C4 Crossmatch 09/10/16 09/10/16 09/10/16 13:17 17:20 23:32 WBC RBC Hgb Hct MCV MCH MCHC RDW Plt Count Lymph % (Auto) Johnson % (Auto) Lymph # Johnson # Seg Neutrophils % Seg Neuts % (Manual) Lymphocytes % (Manual) Monocytes % (Manual) Eosinophils % (Manual) Basophils % (Manual) Nucleated RBC % Seg Neutrophils # Seg Neutrophils # Man Lymphocytes # (Manual) Monocytes # (Manual) Eosinophils # (Manual) Fibrinogen dRVVT Confirm Interp Factor V Activity POC ABG pH POC ABG pCO2 POC ABG pO2 Sodium Potassium Chloride Carbon Dioxide BUN Creatinine Glucose POC Glucose 199 H 186 H Lactic Acid Calcium Phosphorus Magnesium Direct Bilirubin ALT Alkaline Phosphatase Troponin T C-Reactive Protein Total Protein Albumin Triglycerides Cholesterol LDL Cholesterol Direct HDL Cholesterol Urine WBC (Auto) Urine Creatinine Urine Total Protein Vancomycin Trough Rheumatoid Factor Complement C4 Crossmatch See Detail 09/11/16 09/11/16 09/11/16 05:10 05:10 05:17 WBC 28.4 H RBC Hgb 9.2 L Hct 29.3 L D MCV 73 L MCH 23 L MCHC RDW 18.9 H Plt Count 452 H Lymph % (Auto) Johnson % (Auto) Lymph # Johnson # Seg Neutrophils % Seg Neuts % (Manual) 89.5 H Lymphocytes % (Manual) 2.0 L Monocytes % (Manual) Eosinophils % (Manual) Basophils % (Manual) Nucleated RBC % Seg Neutrophils # Seg Neutrophils # Man 25.4 H Lymphocytes # (Manual) 0.6 L Monocytes # (Manual) 1.3 H Eosinophils # (Manual) Fibrinogen dRVVT Confirm Interp Factor V Activity POC ABG pH POC ABG pCO2 POC ABG pO2 Sodium 136 L Potassium Chloride Carbon Dioxide 18 L BUN 107 H Creatinine 2.6 H Glucose 187 H POC Glucose 230 H Lactic Acid Calcium 8.3 L Phosphorus Magnesium Direct Bilirubin ALT Alkaline Phosphatase Troponin T C-Reactive Protein Total Protein Albumin Triglycerides Cholesterol LDL Cholesterol Direct HDL Cholesterol Urine WBC (Auto) Urine Creatinine Urine Total Protein Vancomycin Trough Rheumatoid Factor Complement C4 Crossmatch 09/11/16 09/11/16 09/11/16 05:55 12:02 17:32 WBC RBC Hgb Hct MCV MCH MCHC RDW Plt Count Lymph % (Auto) Johnson % (Auto) Lymph # Johnson # Seg Neutrophils % Seg Neuts % (Manual) Lymphocytes % (Manual) Monocytes % (Manual) Eosinophils % (Manual) Basophils % (Manual) Nucleated RBC % Seg Neutrophils # Seg Neutrophils # Man Lymphocytes # (Manual) Monocytes # (Manual) Eosinophils # (Manual) Fibrinogen dRVVT Confirm Interp Factor V Activity POC ABG pH POC ABG pCO2 33.8 L POC ABG pO2 Sodium Potassium Chloride Carbon Dioxide BUN Creatinine Glucose POC Glucose 191 H 239 H Lactic Acid Calcium Phosphorus Magnesium Direct Bilirubin ALT Alkaline Phosphatase Troponin T C-Reactive Protein Total Protein Albumin Triglycerides Cholesterol LDL Cholesterol Direct HDL Cholesterol Urine WBC (Auto) Urine Creatinine Urine Total Protein Vancomycin Trough Rheumatoid Factor Complement C4 Crossmatch 09/11/16 09/12/16 09/12/16 23:52 05:09 05:32 WBC RBC Hgb Hct MCV MCH MCHC RDW Plt Count Lymph % (Auto) Johnson % (Auto) Lymph # Johnson # Seg Neutrophils % Seg Neuts % (Manual) Lymphocytes % (Manual) Monocytes % (Manual) Eosinophils % (Manual) Basophils % (Manual) Nucleated RBC % Seg Neutrophils # Seg Neutrophils # Man Lymphocytes # (Manual) Monocytes # (Manual) Eosinophils # (Manual) Fibrinogen dRVVT Confirm Interp Factor V Activity POC ABG pH POC ABG pCO2 34.6 L POC ABG pO2 Sodium Potassium Chloride Carbon Dioxide BUN Creatinine Glucose POC Glucose 265 H 184 H Lactic Acid Calcium Phosphorus Magnesium Direct Bilirubin ALT Alkaline Phosphatase Troponin T C-Reactive Protein Total Protein Albumin Triglycerides Cholesterol LDL Cholesterol Direct HDL Cholesterol Urine WBC (Auto) Urine Creatinine Urine Total Protein Vancomycin Trough Rheumatoid Factor Complement C4 Crossmatch 09/12/16 09/12/16 09/12/16 06:45 06:45 07:22 WBC 31.7 H RBC 3.54 L Hgb 8.3 L Hct 25.9 L MCV 73 L MCH 23 L MCHC RDW 18.9 H Plt Count Lymph % (Auto) Johnson % (Auto) Lymph # Johnson # Seg Neutrophils % Seg Neuts % (Manual) 88.5 H Lymphocytes % (Manual) 4.5 L Monocytes % (Manual) Eosinophils % (Manual) Basophils % (Manual) Nucleated RBC % Seg Neutrophils # Seg Neutrophils # Man 28.1 H Lymphocytes # (Manual) Monocytes # (Manual) 1.0 H Eosinophils # (Manual) Fibrinogen dRVVT Confirm Interp Factor V Activity POC ABG pH POC ABG pCO2 POC ABG pO2 Sodium Potassium Chloride Carbon Dioxide 20 L BUN 115 H Creatinine 2.7 H Glucose 165 H POC Glucose Lactic Acid Calcium 8.0 L Phosphorus Magnesium Direct Bilirubin ALT Alkaline Phosphatase Troponin T C-Reactive Protein Total Protein Albumin Triglycerides 217 H Cholesterol LDL Cholesterol Direct HDL Cholesterol Urine WBC (Auto) Urine Creatinine Urine Total Protein Vancomycin Trough Rheumatoid Factor Complement C4 Crossmatch 09/12/16 09/12/16 09/12/16 07:22 09:59 12:21 WBC RBC Hgb Hct MCV MCH MCHC RDW Plt Count Lymph % (Auto) Johnson % (Auto) Lymph # Johnson # Seg Neutrophils % Seg Neuts % (Manual) Lymphocytes % (Manual) Monocytes % (Manual) Eosinophils % (Manual) Basophils % (Manual) Nucleated RBC % Seg Neutrophils # Seg Neutrophils # Man Lymphocytes # (Manual) Monocytes # (Manual) Eosinophils # (Manual) Fibrinogen dRVVT Confirm Interp Positive H Factor V Activity POC ABG pH POC ABG pCO2 POC ABG pO2 Sodium Potassium Chloride Carbon Dioxide BUN Creatinine Glucose POC Glucose 224 H Lactic Acid Calcium Phosphorus Magnesium Direct Bilirubin ALT Alkaline Phosphatase Troponin T C-Reactive Protein 1.70 H Total Protein Albumin Triglycerides Cholesterol LDL Cholesterol Direct HDL Cholesterol Urine WBC (Auto) Urine Creatinine Urine Total Protein Vancomycin Trough Rheumatoid Factor Complement C4 Crossmatch 09/12/16 09/12/16 09/13/16 16:51 23:28 04:00 WBC 45.0 H* RBC Hgb 9.4 L Hct MCV 75 L MCH 23 L MCHC RDW 19.0 H Plt Count 470 H Lymph % (Auto) Johnson % (Auto) Lymph # Johnson # Seg Neutrophils % Seg Neuts % (Manual) 89.0 H Lymphocytes % (Manual) 5.0 L Monocytes % (Manual) Eosinophils % (Manual) Basophils % (Manual) Nucleated RBC % Seg Neutrophils # Seg Neutrophils # Man 40.1 H Lymphocytes # (Manual) Monocytes # (Manual) Eosinophils # (Manual) Fibrinogen dRVVT Confirm Interp Factor V Activity POC ABG pH POC ABG pCO2 POC ABG pO2 Sodium Potassium Chloride Carbon Dioxide BUN Creatinine Glucose POC Glucose 169 H 150 H Lactic Acid Calcium Phosphorus Magnesium Direct Bilirubin ALT Alkaline Phosphatase Troponin T C-Reactive Protein Total Protein Albumin Triglycerides Cholesterol LDL Cholesterol Direct HDL Cholesterol Urine WBC (Auto) Urine Creatinine Urine Total Protein Vancomycin Trough Rheumatoid Factor Complement C4 Crossmatch 09/13/16 09/13/16 09/13/16 04:00 11:26 17:31 WBC RBC Hgb Hct MCV MCH MCHC RDW Plt Count Lymph % (Auto) Johnson % (Auto) Lymph # Johnson # Seg Neutrophils % Seg Neuts % (Manual) Lymphocytes % (Manual) Monocytes % (Manual) Eosinophils % (Manual) Basophils % (Manual) Nucleated RBC % Seg Neutrophils # Seg Neutrophils # Man Lymphocytes # (Manual) Monocytes # (Manual) Eosinophils # (Manual) Fibrinogen dRVVT Confirm Interp Factor V Activity POC ABG pH POC ABG pCO2 POC ABG pO2 Sodium Potassium Chloride Carbon Dioxide 20 L BUN 116 H Creatinine 3.0 H Glucose 172 H POC Glucose 140 H 183 H Lactic Acid Calcium Phosphorus Magnesium Direct Bilirubin ALT Alkaline Phosphatase Troponin T C-Reactive Protein Total Protein 6.2 L Albumin 2.9 L Triglycerides Cholesterol LDL Cholesterol Direct HDL Cholesterol Urine WBC (Auto) Urine Creatinine Urine Total Protein Vancomycin Trough Rheumatoid Factor Complement C4 Crossmatch 09/13/16 09/14/16 09/14/16 23:23 04:06 04:07 WBC 29.4 H RBC Hgb 8.9 L Hct 27.3 L MCV 75 L MCH 24 L MCHC RDW 19.1 H Plt Count Lymph % (Auto) Johnson % (Auto) Lymph # Johnson # Seg Neutrophils % Seg Neuts % (Manual) 84.0 H Lymphocytes % (Manual) 6.0 L Monocytes % (Manual) 9.0 H Eosinophils % (Manual) Basophils % (Manual) Nucleated RBC % Seg Neutrophils # Seg Neutrophils # Man 24.7 H Lymphocytes # (Manual) Monocytes # (Manual) 2.6 H Eosinophils # (Manual) Fibrinogen dRVVT Confirm Interp Factor V Activity POC ABG pH 7.342 L POC ABG pCO2 POC ABG pO2 116 H Sodium Potassium Chloride Carbon Dioxide BUN Creatinine Glucose POC Glucose 154 H Lactic Acid Calcium Phosphorus Magnesium Direct Bilirubin ALT Alkaline Phosphatase Troponin T C-Reactive Protein Total Protein Albumin Triglycerides Cholesterol LDL Cholesterol Direct HDL Cholesterol Urine WBC (Auto) Urine Creatinine Urine Total Protein Vancomycin Trough Rheumatoid Factor Complement C4 Crossmatch 09/14/16 09/14/16 09/14/16 04:07 05:29 12:19 WBC RBC Hgb Hct MCV MCH MCHC RDW Plt Count Lymph % (Auto) Johnson % (Auto) Lymph # Johnson # Seg Neutrophils % Seg Neuts % (Manual) Lymphocytes % (Manual) Monocytes % (Manual) Eosinophils % (Manual) Basophils % (Manual) Nucleated RBC % Seg Neutrophils # Seg Neutrophils # Man Lymphocytes # (Manual) Monocytes # (Manual) Eosinophils # (Manual) Fibrinogen dRVVT Confirm Interp Factor V Activity POC ABG pH POC ABG pCO2 POC ABG pO2 Sodium 136 L Potassium Chloride Carbon Dioxide 18 L BUN 121 H Creatinine 2.8 H Glucose 214 H POC Glucose 239 H 181 H Lactic Acid Calcium Phosphorus Magnesium Direct Bilirubin ALT Alkaline Phosphatase Troponin T C-Reactive Protein Total Protein Albumin Triglycerides Cholesterol LDL Cholesterol Direct HDL Cholesterol Urine WBC (Auto) Urine Creatinine Urine Total Protein Vancomycin Trough Rheumatoid Factor Complement C4 Crossmatch 09/14/16 09/14/16 09/15/16 18:12 23:37 05:00 WBC 26.1 H RBC 3.05 L Hgb 7.2 L Hct 22.9 L MCV 75 L MCH 24 L MCHC RDW 19.0 H Plt Count Lymph % (Auto) Johnson % (Auto) Lymph # Johnson # Seg Neutrophils % Seg Neuts % (Manual) Lymphocytes % (Manual) Monocytes % (Manual) Eosinophils % (Manual) Basophils % (Manual) Nucleated RBC % Seg Neutrophils # Seg Neutrophils # Man Lymphocytes # (Manual) Monocytes # (Manual) Eosinophils # (Manual) Fibrinogen dRVVT Confirm Interp Factor V Activity POC ABG pH POC ABG pCO2 POC ABG pO2 Sodium Potassium Chloride Carbon Dioxide BUN Creatinine Glucose POC Glucose 266 H 154 H Lactic Acid Calcium Phosphorus Magnesium Direct Bilirubin ALT Alkaline Phosphatase Troponin T C-Reactive Protein Total Protein Albumin Triglycerides Cholesterol LDL Cholesterol Direct HDL Cholesterol Urine WBC (Auto) Urine Creatinine Urine Total Protein Vancomycin Trough Rheumatoid Factor Complement C4 Crossmatch 09/15/16 09/15/16 09/15/16 05:00 05:17 12:45 WBC RBC Hgb Hct MCV MCH MCHC RDW Plt Count Lymph % (Auto) Johnson % (Auto) Lymph # Johnson # Seg Neutrophils % Seg Neuts % (Manual) Lymphocytes % (Manual) Monocytes % (Manual) Eosinophils % (Manual) Basophils % (Manual) Nucleated RBC % Seg Neutrophils # Seg Neutrophils # Man Lymphocytes # (Manual) Monocytes # (Manual) Eosinophils # (Manual) Fibrinogen dRVVT Confirm Interp Factor V Activity POC ABG pH POC ABG pCO2 POC ABG pO2 Sodium Potassium 5.2 H Chloride Carbon Dioxide 18 L BUN 139 H Creatinine 3.7 H Glucose 227 H POC Glucose 226 H 244 H Lactic Acid Calcium 8.3 L Phosphorus Magnesium Direct Bilirubin ALT Alkaline Phosphatase Troponin T C-Reactive Protein Total Protein Albumin Triglycerides Cholesterol LDL Cholesterol Direct HDL Cholesterol Urine WBC (Auto) Urine Creatinine Urine Total Protein Vancomycin Trough Rheumatoid Factor Complement C4 Crossmatch 09/15/16 09/15/16 09/15/16 14:32 17:33 23:35 WBC RBC Hgb Hct MCV MCH MCHC RDW Plt Count Lymph % (Auto) Johnson % (Auto) Lymph # Johnson # Seg Neutrophils % Seg Neuts % (Manual) Lymphocytes % (Manual) Monocytes % (Manual) Eosinophils % (Manual) Basophils % (Manual) Nucleated RBC % Seg Neutrophils # Seg Neutrophils # Man Lymphocytes # (Manual) Monocytes # (Manual) Eosinophils # (Manual) Fibrinogen dRVVT Confirm Interp Factor V Activity POC ABG pH POC ABG pCO2 27.7 L POC ABG pO2 120 H Sodium Potassium Chloride Carbon Dioxide BUN Creatinine Glucose POC Glucose 232 H 167 H Lactic Acid Calcium Phosphorus Magnesium Direct Bilirubin ALT Alkaline Phosphatase Troponin T C-Reactive Protein Total Protein Albumin Triglycerides Cholesterol LDL Cholesterol Direct HDL Cholesterol Urine WBC (Auto) Urine Creatinine Urine Total Protein Vancomycin Trough Rheumatoid Factor Complement C4 Crossmatch 09/16/16 09/16/16 09/16/16 03:58 10:27 10:27 WBC 19.0 H RBC 2.77 L Hgb 6.5 L Hct 20.9 L MCV 76 L MCH 23 L MCHC RDW 19.3 H Plt Count Lymph % (Auto) 11.0 L Johnson % (Auto) Lymph # Johnson # 1.1 H Seg Neutrophils % 82.5 H Seg Neuts % (Manual) Lymphocytes % (Manual) Monocytes % (Manual) Eosinophils % (Manual) Basophils % (Manual) Nucleated RBC % Seg Neutrophils # 15.7 H Seg Neutrophils # Man Lymphocytes # (Manual) Monocytes # (Manual) Eosinophils # (Manual) Fibrinogen dRVVT Confirm Interp Factor V Activity POC ABG pH POC ABG pCO2 POC ABG pO2 Sodium Potassium Chloride 109.3 H Carbon Dioxide 18 L BUN 139 H Creatinine 4.1 H Glucose 144 H POC Glucose 146 H Lactic Acid Calcium 8.1 L Phosphorus Magnesium Direct Bilirubin ALT Alkaline Phosphatase Troponin T C-Reactive Protein Total Protein Albumin Triglycerides Cholesterol LDL Cholesterol Direct HDL Cholesterol Urine WBC (Auto) Urine Creatinine Urine Total Protein Vancomycin Trough Rheumatoid Factor Complement C4 Crossmatch 09/16/16 09/16/16 09/16/16 12:04 12:10 13:55 WBC RBC Hgb Hct MCV MCH MCHC RDW Plt Count Lymph % (Auto) Johnson % (Auto) Lymph # Johnson # Seg Neutrophils % Seg Neuts % (Manual) Lymphocytes % (Manual) Monocytes % (Manual) Eosinophils % (Manual) Basophils % (Manual) Nucleated RBC % Seg Neutrophils # Seg Neutrophils # Man Lymphocytes # (Manual) Monocytes # (Manual) Eosinophils # (Manual) Fibrinogen dRVVT Confirm Interp Factor V Activity POC ABG pH POC ABG pCO2 32.9 L POC ABG pO2 Sodium Potassium Chloride Carbon Dioxide BUN Creatinine Glucose POC Glucose 185 H Lactic Acid Calcium Phosphorus Magnesium Direct Bilirubin ALT Alkaline Phosphatase Troponin T C-Reactive Protein Total Protein Albumin Triglycerides Cholesterol LDL Cholesterol Direct HDL Cholesterol Urine WBC (Auto) Urine Creatinine Urine Total Protein Vancomycin Trough Rheumatoid Factor Complement C4 Crossmatch See Detail 09/16/16 09/16/16 09/16/16 17:55 19:19 23:48 WBC RBC Hgb Hct MCV MCH MCHC RDW Plt Count Lymph % (Auto) Johnson % (Auto) Lymph # Johnson # Seg Neutrophils % Seg Neuts % (Manual) Lymphocytes % (Manual) Monocytes % (Manual) Eosinophils % (Manual) Basophils % (Manual) Nucleated RBC % Seg Neutrophils # Seg Neutrophils # Man Lymphocytes # (Manual) Monocytes # (Manual) Eosinophils # (Manual) Fibrinogen dRVVT Confirm Interp Factor V Activity POC ABG pH POC ABG pCO2 POC ABG pO2 Sodium Potassium Chloride Carbon Dioxide BUN Creatinine Glucose POC Glucose 222 H 107 H Lactic Acid Calcium Phosphorus Magnesium Direct Bilirubin ALT Alkaline Phosphatase Troponin T C-Reactive Protein Total Protein Albumin Triglycerides Cholesterol LDL Cholesterol Direct HDL Cholesterol Urine WBC (Auto) Urine Creatinine 47.4 H Urine Total Protein 16 H Vancomycin Trough Rheumatoid Factor Complement C4 Crossmatch 09/17/16 09/17/16 09/17/16 03:45 03:45 04:55 WBC 19.6 H RBC 3.41 L Hgb 8.5 L Hct 26.7 L MCV 78 L MCH 25 L MCHC RDW 19.9 H Plt Count Lymph % (Auto) 9.3 L Johnson % (Auto) Lymph # Johnson # 1.2 H Seg Neutrophils % 83.9 H Seg Neuts % (Manual) Lymphocytes % (Manual) Monocytes % (Manual) Eosinophils % (Manual) Basophils % (Manual) Nucleated RBC % Seg Neutrophils # 16.4 H Seg Neutrophils # Man Lymphocytes # (Manual) Monocytes # (Manual) Eosinophils # (Manual) Fibrinogen dRVVT Confirm Interp Factor V Activity POC ABG pH POC ABG pCO2 POC ABG pO2 Sodium 146 H Potassium 5.1 H Chloride 110.9 H Carbon Dioxide 16 L BUN 146 H Creatinine 4.0 H Glucose 108 H POC Glucose 133 H Lactic Acid Calcium Phosphorus Magnesium 3.00 H Direct Bilirubin ALT Alkaline Phosphatase Troponin T C-Reactive Protein Total Protein Albumin Triglycerides Cholesterol LDL Cholesterol Direct HDL Cholesterol Urine WBC (Auto) Urine Creatinine Urine Total Protein Vancomycin Trough Rheumatoid Factor Complement C4 Crossmatch 09/17/16 09/17/16 09/17/16 11:15 17:33 23:47 WBC RBC Hgb Hct MCV MCH MCHC RDW Plt Count Lymph % (Auto) Johnson % (Auto) Lymph # Johnson # Seg Neutrophils % Seg Neuts % (Manual) Lymphocytes % (Manual) Monocytes % (Manual) Eosinophils % (Manual) Basophils % (Manual) Nucleated RBC % Seg Neutrophils # Seg Neutrophils # Man Lymphocytes # (Manual) Monocytes # (Manual) Eosinophils # (Manual) Fibrinogen dRVVT Confirm Interp Factor V Activity POC ABG pH POC ABG pCO2 POC ABG pO2 Sodium Potassium Chloride Carbon Dioxide BUN Creatinine Glucose POC Glucose 176 H 246 H 148 H Lactic Acid Calcium Phosphorus Magnesium Direct Bilirubin ALT Alkaline Phosphatase Troponin T C-Reactive Protein Total Protein Albumin Triglycerides Cholesterol LDL Cholesterol Direct HDL Cholesterol Urine WBC (Auto) Urine Creatinine Urine Total Protein Vancomycin Trough Rheumatoid Factor Complement C4 Crossmatch 09/18/16 09/18/16 09/18/16 05:33 08:31 08:31 WBC 18.0 H RBC 3.17 L Hgb 9.0 L Hct 25.7 L MCV MCH MCHC 35 H RDW 20.4 H Plt Count Lymph % (Auto) Johnson % (Auto) Lymph # Johnson # Seg Neutrophils % Seg Neuts % (Manual) Lymphocytes % (Manual) Monocytes % (Manual) Eosinophils % (Manual) Basophils % (Manual) Nucleated RBC % Seg Neutrophils # Seg Neutrophils # Man Lymphocytes # (Manual) Monocytes # (Manual) Eosinophils # (Manual) Fibrinogen dRVVT Confirm Interp Factor V Activity POC ABG pH POC ABG pCO2 POC ABG pO2 Sodium Potassium Chloride Carbon Dioxide 15 L BUN 124 H Creatinine 3.8 H Glucose POC Glucose 120 H Lactic Acid Calcium 8.1 L Phosphorus Magnesium Direct Bilirubin ALT Alkaline Phosphatase Troponin T C-Reactive Protein Total Protein Albumin Triglycerides Cholesterol LDL Cholesterol Direct HDL Cholesterol Urine WBC (Auto) Urine Creatinine Urine Total Protein Vancomycin Trough Rheumatoid Factor Complement C4 Crossmatch 09/18/16 09/18/16 09/18/16 12:03 15:34 17:50 WBC RBC Hgb Hct MCV MCH MCHC RDW Plt Count Lymph % (Auto) Johnson % (Auto) Lymph # Johnson # Seg Neutrophils % Seg Neuts % (Manual) Lymphocytes % (Manual) Monocytes % (Manual) Eosinophils % (Manual) Basophils % (Manual) Nucleated RBC % Seg Neutrophils # Seg Neutrophils # Man Lymphocytes # (Manual) Monocytes # (Manual) Eosinophils # (Manual) Fibrinogen dRVVT Confirm Interp Factor V Activity POC ABG pH POC ABG pCO2 25.7 L POC ABG pO2 66 L Sodium Potassium Chloride Carbon Dioxide BUN Creatinine Glucose POC Glucose 156 H 220 H Lactic Acid Calcium Phosphorus Magnesium Direct Bilirubin ALT Alkaline Phosphatase Troponin T C-Reactive Protein Total Protein Albumin Triglycerides Cholesterol LDL Cholesterol Direct HDL Cholesterol Urine WBC (Auto) Urine Creatinine Urine Total Protein Vancomycin Trough Rheumatoid Factor Complement C4 Crossmatch 09/19/16 09/19/16 09/19/16 06:21 09:50 09:50 WBC 17.1 H RBC 3.49 L Hgb 9.0 L Hct 28.1 L MCV MCH 26 L MCHC RDW 20.8 H Plt Count Lymph % (Auto) 11.5 L Johnson % (Auto) 7.5 H Lymph # Johnson # 1.3 H Seg Neutrophils % 79.8 H Seg Neuts % (Manual) Lymphocytes % (Manual) Monocytes % (Manual) Eosinophils % (Manual) Basophils % (Manual) Nucleated RBC % Seg Neutrophils # 13.7 H Seg Neutrophils # Man Lymphocytes # (Manual) Monocytes # (Manual) Eosinophils # (Manual) Fibrinogen dRVVT Confirm Interp Factor V Activity POC ABG pH POC ABG pCO2 POC ABG pO2 Sodium Potassium Chloride 108.6 H Carbon Dioxide 15 L BUN 125 H Creatinine 4.1 H Glucose 124 H POC Glucose 119 H Lactic Acid Calcium Phosphorus Magnesium Direct Bilirubin ALT Alkaline Phosphatase Troponin T C-Reactive Protein Total Protein Albumin Triglycerides Cholesterol LDL Cholesterol Direct HDL Cholesterol Urine WBC (Auto) Urine Creatinine Urine Total Protein Vancomycin Trough Rheumatoid Factor Complement C4 Crossmatch 09/19/16 09/19/16 09/19/16 11:25 17:53 23:36 WBC RBC Hgb Hct MCV MCH MCHC RDW Plt Count Lymph % (Auto) Johnson % (Auto) Lymph # Johnson # Seg Neutrophils % Seg Neuts % (Manual) Lymphocytes % (Manual) Monocytes % (Manual) Eosinophils % (Manual) Basophils % (Manual) Nucleated RBC % Seg Neutrophils # Seg Neutrophils # Man Lymphocytes # (Manual) Monocytes # (Manual) Eosinophils # (Manual) Fibrinogen dRVVT Confirm Interp Factor V Activity POC ABG pH POC ABG pCO2 POC ABG pO2 Sodium Potassium Chloride Carbon Dioxide BUN Creatinine Glucose POC Glucose 160 H 245 H 121 H Lactic Acid Calcium Phosphorus Magnesium Direct Bilirubin ALT Alkaline Phosphatase Troponin T C-Reactive Protein Total Protein Albumin Triglycerides Cholesterol LDL Cholesterol Direct HDL Cholesterol Urine WBC (Auto) Urine Creatinine Urine Total Protein Vancomycin Trough Rheumatoid Factor Complement C4 Crossmatch 09/20/16 09/20/16 09/20/16 04:10 04:10 04:10 WBC 17.0 H RBC 3.21 L Hgb 8.2 L Hct 25.5 L MCV MCH 26 L MCHC RDW 20.9 H Plt Count Lymph % (Auto) Johnson % (Auto) Lymph # Johnson # Seg Neutrophils % Seg Neuts % (Manual) Lymphocytes % (Manual) Monocytes % (Manual) Eosinophils % (Manual) Basophils % (Manual) Nucleated RBC % Seg Neutrophils # Seg Neutrophils # Man Lymphocytes # (Manual) Monocytes # (Manual) Eosinophils # (Manual) Fibrinogen dRVVT Confirm Interp Factor V Activity POC ABG pH POC ABG pCO2 POC ABG pO2 Sodium Potassium Chloride 111.0 H Carbon Dioxide 16 L BUN 129 H Creatinine 3.7 H Glucose 115 H POC Glucose Lactic Acid Calcium 8.2 L Phosphorus Magnesium Direct Bilirubin ALT Alkaline Phosphatase Troponin T C-Reactive Protein Total Protein Albumin Triglycerides 243 H Cholesterol LDL Cholesterol Direct HDL Cholesterol Urine WBC (Auto) Urine Creatinine Urine Total Protein Vancomycin Trough Rheumatoid Factor Complement C4 Crossmatch 09/20/16 09/20/16 09/20/16 05:40 11:52 16:50 WBC RBC Hgb Hct MCV MCH MCHC RDW Plt Count Lymph % (Auto) Johnson % (Auto) Lymph # Johnson # Seg Neutrophils % Seg Neuts % (Manual) Lymphocytes % (Manual) Monocytes % (Manual) Eosinophils % (Manual) Basophils % (Manual) Nucleated RBC % Seg Neutrophils # Seg Neutrophils # Man Lymphocytes # (Manual) Monocytes # (Manual) Eosinophils # (Manual) Fibrinogen dRVVT Confirm Interp Factor V Activity POC ABG pH POC ABG pCO2 POC ABG pO2 Sodium Potassium Chloride Carbon Dioxide BUN Creatinine Glucose POC Glucose 131 H 183 H 236 H Lactic Acid Calcium Phosphorus Magnesium Direct Bilirubin ALT Alkaline Phosphatase Troponin T C-Reactive Protein Total Protein Albumin Triglycerides Cholesterol LDL Cholesterol Direct HDL Cholesterol Urine WBC (Auto) Urine Creatinine Urine Total Protein Vancomycin Trough Rheumatoid Factor Complement C4 Crossmatch 09/20/16 09/21/16 09/21/16 23:51 03:30 04:44 WBC RBC Hgb Hct MCV MCH MCHC RDW Plt Count Lymph % (Auto) Johnson % (Auto) Lymph # Johnson # Seg Neutrophils % Seg Neuts % (Manual) Lymphocytes % (Manual) Monocytes % (Manual) Eosinophils % (Manual) Basophils % (Manual) Nucleated RBC % Seg Neutrophils # Seg Neutrophils # Man Lymphocytes # (Manual) Monocytes # (Manual) Eosinophils # (Manual) Fibrinogen dRVVT Confirm Interp Factor V Activity POC ABG pH POC ABG pCO2 POC ABG pO2 Sodium Potassium Chloride Carbon Dioxide BUN Creatinine Glucose POC Glucose 114 H 141 H Lactic Acid Calcium Phosphorus Magnesium 2.70 H Direct Bilirubin ALT Alkaline Phosphatase Troponin T C-Reactive Protein Total Protein Albumin Triglycerides Cholesterol LDL Cholesterol Direct HDL Cholesterol Urine WBC (Auto) Urine Creatinine Urine Total Protein Vancomycin Trough Rheumatoid Factor Complement C4 Crossmatch 09/21/16 09/21/16 09/21/16 07:45 07:45 10:01 WBC 13.8 H RBC 2.94 L Hgb 7.5 L Hct 23.5 L MCV MCH 26 L MCHC RDW 21.2 H Plt Count Lymph % (Auto) 6.9 L Johnson % (Auto) 9.4 H Lymph # 0.9 L Johnson # 1.3 H Seg Neutrophils % 83.2 H Seg Neuts % (Manual) Lymphocytes % (Manual) Monocytes % (Manual) Eosinophils % (Manual) Basophils % (Manual) Nucleated RBC % Seg Neutrophils # 11.5 H Seg Neutrophils # Man Lymphocytes # (Manual) Monocytes # (Manual) Eosinophils # (Manual) Fibrinogen dRVVT Confirm Interp Factor V Activity POC ABG pH 7.308 L POC ABG pCO2 31.9 L POC ABG pO2 148 H Sodium 147 H Potassium Chloride 114.2 H Carbon Dioxide 15 L BUN 120 H Creatinine 3.9 H Glucose 156 H POC Glucose Lactic Acid Calcium 8.2 L Phosphorus Magnesium Direct Bilirubin ALT Alkaline Phosphatase Troponin T C-Reactive Protein Total Protein Albumin Triglycerides Cholesterol LDL Cholesterol Direct HDL Cholesterol Urine WBC (Auto) Urine Creatinine Urine Total Protein Vancomycin Trough Rheumatoid Factor Complement C4 Crossmatch 09/21/16 09/21/16 09/21/16 12:00 12:03 13:00 WBC RBC Hgb Hct MCV MCH MCHC RDW Plt Count Lymph % (Auto) Johnson % (Auto) Lymph # Johnson # Seg Neutrophils % Seg Neuts % (Manual) Lymphocytes % (Manual) Monocytes % (Manual) Eosinophils % (Manual) Basophils % (Manual) Nucleated RBC % Seg Neutrophils # Seg Neutrophils # Man Lymphocytes # (Manual) Monocytes # (Manual) Eosinophils # (Manual) Fibrinogen dRVVT Confirm Interp Factor V Activity POC ABG pH POC ABG pCO2 POC ABG pO2 Sodium Potassium Chloride Carbon Dioxide BUN Creatinine Glucose POC Glucose 163 H Lactic Acid Calcium Phosphorus Magnesium Direct Bilirubin ALT Alkaline Phosphatase Troponin T C-Reactive Protein Total Protein Albumin Triglycerides Cholesterol LDL Cholesterol Direct HDL Cholesterol Urine WBC (Auto) Urine Creatinine 54.8 H Urine Total Protein Vancomycin Trough 2.3 L Rheumatoid Factor Complement C4 Crossmatch 09/21/16 09/21/16 09/22/16 16:51 23:17 06:27 WBC RBC Hgb Hct MCV MCH MCHC RDW Plt Count Lymph % (Auto) Johnson % (Auto) Lymph # Johnson # Seg Neutrophils % Seg Neuts % (Manual) Lymphocytes % (Manual) Monocytes % (Manual) Eosinophils % (Manual) Basophils % (Manual) Nucleated RBC % Seg Neutrophils # Seg Neutrophils # Man Lymphocytes # (Manual) Monocytes # (Manual) Eosinophils # (Manual) Fibrinogen dRVVT Confirm Interp Factor V Activity POC ABG pH POC ABG pCO2 POC ABG pO2 Sodium Potassium Chloride Carbon Dioxide BUN Creatinine Glucose POC Glucose 206 H 114 H 115 H Lactic Acid Calcium Phosphorus Magnesium Direct Bilirubin ALT Alkaline Phosphatase Troponin T C-Reactive Protein Total Protein Albumin Triglycerides Cholesterol LDL Cholesterol Direct HDL Cholesterol Urine WBC (Auto) Urine Creatinine Urine Total Protein Vancomycin Trough Rheumatoid Factor Complement C4 Crossmatch 09/22/16 09/22/16 09/22/16 07:50 07:50 12:00 WBC 17.8 H RBC 3.04 L Hgb 8.0 L Hct 24.7 L MCV MCH 26 L MCHC RDW 21.6 H Plt Count Lymph % (Auto) Johnson % (Auto) Lymph # Johnson # Seg Neutrophils % Seg Neuts % (Manual) Lymphocytes % (Manual) Monocytes % (Manual) Eosinophils % (Manual) Basophils % (Manual) Nucleated RBC % Seg Neutrophils # Seg Neutrophils # Man Lymphocytes # (Manual) Monocytes # (Manual) Eosinophils # (Manual) Fibrinogen dRVVT Confirm Interp Factor V Activity POC ABG pH POC ABG pCO2 POC ABG pO2 Sodium 150 H Potassium Chloride 118.2 H Carbon Dioxide 14 L BUN 111 H Creatinine 3.7 H Glucose 157 H POC Glucose 183 H Lactic Acid Calcium Phosphorus Magnesium Direct Bilirubin ALT Alkaline Phosphatase Troponin T C-Reactive Protein Total Protein Albumin Triglycerides Cholesterol LDL Cholesterol Direct HDL Cholesterol Urine WBC (Auto) Urine Creatinine Urine Total Protein Vancomycin Trough Rheumatoid Factor Complement C4 Crossmatch 09/22/16 09/22/16 09/23/16 17:29 23:10 05:00 WBC 19.2 H RBC 3.13 L Hgb 8.0 L Hct 25.2 L MCV MCH 26 L MCHC RDW 22.1 H Plt Count Lymph % (Auto) Johnson % (Auto) Lymph # Johnson # Seg Neutrophils % Seg Neuts % (Manual) 92.0 H Lymphocytes % (Manual) 3.0 L Monocytes % (Manual) Eosinophils % (Manual) Basophils % (Manual) Nucleated RBC % Seg Neutrophils # Seg Neutrophils # Man 17.7 H Lymphocytes # (Manual) 0.6 L Monocytes # (Manual) Eosinophils # (Manual) Fibrinogen dRVVT Confirm Interp Factor V Activity POC ABG pH POC ABG pCO2 POC ABG pO2 Sodium Potassium Chloride Carbon Dioxide BUN Creatinine Glucose POC Glucose 197 H 169 H Lactic Acid Calcium Phosphorus Magnesium Direct Bilirubin ALT Alkaline Phosphatase Troponin T C-Reactive Protein Total Protein Albumin Triglycerides Cholesterol LDL Cholesterol Direct HDL Cholesterol Urine WBC (Auto) Urine Creatinine Urine Total Protein Vancomycin Trough Rheumatoid Factor Complement C4 Crossmatch 09/23/16 09/23/16 09/23/16 05:00 05:00 05:10 WBC RBC Hgb Hct MCV MCH MCHC RDW Plt Count Lymph % (Auto) Johnson % (Auto) Lymph # Johnson # Seg Neutrophils % Seg Neuts % (Manual) Lymphocytes % (Manual) Monocytes % (Manual) Eosinophils % (Manual) Basophils % (Manual) Nucleated RBC % Seg Neutrophils # Seg Neutrophils # Man Lymphocytes # (Manual) Monocytes # (Manual) Eosinophils # (Manual) Fibrinogen dRVVT Confirm Interp Factor V Activity POC ABG pH POC ABG pCO2 POC ABG pO2 Sodium 147 H Potassium 3.2 L Chloride 115.7 H Carbon Dioxide 13 L BUN 111 H Creatinine 3.8 H Glucose 194 H POC Glucose 188 H Lactic Acid Calcium 7.3 L D Phosphorus Magnesium Direct Bilirubin ALT Alkaline Phosphatase Troponin T C-Reactive Protein 3.20 H Total Protein Albumin Triglycerides Cholesterol LDL Cholesterol Direct HDL Cholesterol Urine WBC (Auto) Urine Creatinine Urine Total Protein Vancomycin Trough Rheumatoid Factor Complement C4 Crossmatch 09/23/16 09/23/16 09/23/16 11:37 12:29 18:01 WBC RBC Hgb Hct MCV MCH MCHC RDW Plt Count Lymph % (Auto) Johnson % (Auto) Lymph # Johnson # Seg Neutrophils % Seg Neuts % (Manual) Lymphocytes % (Manual) Monocytes % (Manual) Eosinophils % (Manual) Basophils % (Manual) Nucleated RBC % Seg Neutrophils # Seg Neutrophils # Man Lymphocytes # (Manual) Monocytes # (Manual) Eosinophils # (Manual) Fibrinogen dRVVT Confirm Interp Factor V Activity POC ABG pH POC ABG pCO2 18.9 L POC ABG pO2 143 H Sodium Potassium Chloride Carbon Dioxide BUN Creatinine Glucose POC Glucose 153 H 108 H Lactic Acid Calcium Phosphorus Magnesium Direct Bilirubin ALT Alkaline Phosphatase Troponin T C-Reactive Protein Total Protein Albumin Triglycerides Cholesterol LDL Cholesterol Direct HDL Cholesterol Urine WBC (Auto) Urine Creatinine Urine Total Protein Vancomycin Trough Rheumatoid Factor Complement C4 Crossmatch 09/23/16 09/23/16 09/24/16 21:19 23:43 05:16 WBC RBC Hgb Hct MCV MCH MCHC RDW Plt Count Lymph % (Auto) Johnson % (Auto) Lymph # Johnson # Seg Neutrophils % Seg Neuts % (Manual) Lymphocytes % (Manual) Monocytes % (Manual) Eosinophils % (Manual) Basophils % (Manual) Nucleated RBC % Seg Neutrophils # Seg Neutrophils # Man Lymphocytes # (Manual) Monocytes # (Manual) Eosinophils # (Manual) Fibrinogen dRVVT Confirm Interp Factor V Activity POC ABG pH POC ABG pCO2 17.3 L POC ABG pO2 112 H Sodium Potassium Chloride Carbon Dioxide BUN Creatinine Glucose POC Glucose 143 H 164 H Lactic Acid Calcium Phosphorus Magnesium Direct Bilirubin ALT Alkaline Phosphatase Troponin T C-Reactive Protein Total Protein Albumin Triglycerides Cholesterol LDL Cholesterol Direct HDL Cholesterol Urine WBC (Auto) Urine Creatinine Urine Total Protein Vancomycin Trough Rheumatoid Factor Complement C4 Crossmatch 09/24/16 09/24/1617 05:21 11:58 17:06 WBC RBC Hgb Hct MCV MCH MCHC RDW Plt Count Lymph % (Auto) Johnson % (Auto) Lymph # Johnson # Seg Neutrophils % Seg Neuts % (Manual) Lymphocytes % (Manual) Monocytes % (Manual) Eosinophils % (Manual) Basophils % (Manual) Nucleated RBC % Seg Neutrophils # Seg Neutrophils # Man Lymphocytes # (Manual) Monocytes # (Manual) Eosinophils # (Manual) Fibrinogen dRVVT Confirm Interp Factor V Activity POC ABG pH POC ABG pCO2 POC ABG pO2 Sodium Potassium Chloride Carbon Dioxide 10 L BUN 103 H Creatinine 4.3 H Glucose 163 H POC Glucose 173 H 167 H Lactic Acid Calcium 6.5 L Phosphorus Magnesium Direct Bilirubin ALT Alkaline Phosphatase Troponin T C-Reactive Protein Total Protein Albumin Triglycerides Cholesterol LDL Cholesterol Direct HDL Cholesterol Urine WBC (Auto) Urine Creatinine Urine Total Protein Vancomycin Trough Rheumatoid Factor Complement C4 Crossmatch 09/24/16 09/24/16 09/24/16 20:15 21:02 23:48 WBC RBC Hgb Hct MCV MCH MCHC RDW Plt Count Lymph % (Auto) Johnson % (Auto) Lymph # Johnson # Seg Neutrophils % Seg Neuts % (Manual) Lymphocytes % (Manual) Monocytes % (Manual) Eosinophils % (Manual) Basophils % (Manual) Nucleated RBC % Seg Neutrophils # Seg Neutrophils # Man Lymphocytes # (Manual) Monocytes # (Manual) Eosinophils # (Manual) Fibrinogen dRVVT Confirm Interp Factor V Activity POC ABG pH 7.288 L POC ABG pCO2 30.2 L 21.5 L POC ABG pO2 32 L 39 L Sodium Potassium Chloride Carbon Dioxide BUN Creatinine Glucose POC Glucose 109 H Lactic Acid Calcium Phosphorus Magnesium Direct Bilirubin ALT Alkaline Phosphatase Troponin T C-Reactive Protein Total Protein Albumin Triglycerides Cholesterol LDL Cholesterol Direct HDL Cholesterol Urine WBC (Auto) Urine Creatinine Urine Total Protein Vancomycin Trough Rheumatoid Factor Complement C4 Crossmatch 09/25/16 09/25/16 09/25/16 04:20 04:20 04:20 WBC RBC 2.58 L Hgb 7.0 L Hct 21.0 L MCV MCH 27 L MCHC RDW 23.8 H Plt Count Lymph % (Auto) Johnson % (Auto) Lymph # Johnson # Seg Neutrophils % Seg Neuts % (Manual) Lymphocytes % (Manual) 12.0 L Monocytes % (Manual) Eosinophils % (Manual) 7.0 H Basophils % (Manual) 2.0 H Nucleated RBC % Seg Neutrophils # Seg Neutrophils # Man Lymphocytes # (Manual) 0.9 L Monocytes # (Manual) Eosinophils # (Manual) 0.5 H Fibrinogen dRVVT Confirm Interp Factor V Activity POC ABG pH POC ABG pCO2 POC ABG pO2 Sodium Potassium Chloride Carbon Dioxide 15 L BUN 72 H Creatinine 3.8 H Glucose POC Glucose Lactic Acid Calcium 6.0 L Phosphorus 4.60 H Magnesium 1.60 L Direct Bilirubin ALT Alkaline Phosphatase Troponin T C-Reactive Protein Total Protein Albumin Triglycerides Cholesterol LDL Cholesterol Direct HDL Cholesterol Urine WBC (Auto) Urine Creatinine Urine Total Protein Vancomycin Trough Rheumatoid Factor Complement C4 Crossmatch 09/25/16 09/25/16 09/25/16 04:57 08:02 10:30 WBC RBC Hgb Hct MCV MCH MCHC RDW Plt Count Lymph % (Auto) Johnson % (Auto) Lymph # Johnson # Seg Neutrophils % Seg Neuts % (Manual) Lymphocytes % (Manual) Monocytes % (Manual) Eosinophils % (Manual) Basophils % (Manual) Nucleated RBC % Seg Neutrophils # Seg Neutrophils # Man Lymphocytes # (Manual) Monocytes # (Manual) Eosinophils # (Manual) Fibrinogen dRVVT Confirm Interp Factor V Activity POC ABG pH POC ABG pCO2 24.7 L POC ABG pO2 152 H Sodium Potassium Chloride Carbon Dioxide BUN Creatinine Glucose POC Glucose 113 H Lactic Acid Calcium Phosphorus Magnesium Direct Bilirubin ALT Alkaline Phosphatase Troponin T C-Reactive Protein Total Protein Albumin Triglycerides Cholesterol LDL Cholesterol Direct HDL Cholesterol Urine WBC (Auto) Urine Creatinine Urine Total Protein Vancomycin Trough Rheumatoid Factor Complement C4 Crossmatch See Detail 09/25/16 09/25/16 09/25/16 12:05 17:44 23:47 WBC RBC Hgb Hct MCV MCH MCHC RDW Plt Count Lymph % (Auto) Johnson % (Auto) Lymph # Johnson # Seg Neutrophils % Seg Neuts % (Manual) Lymphocytes % (Manual) Monocytes % (Manual) Eosinophils % (Manual) Basophils % (Manual) Nucleated RBC % Seg Neutrophils # Seg Neutrophils # Man Lymphocytes # (Manual) Monocytes # (Manual) Eosinophils # (Manual) Fibrinogen dRVVT Confirm Interp Factor V Activity POC ABG pH POC ABG pCO2 POC ABG pO2 Sodium Potassium Chloride Carbon Dioxide BUN Creatinine Glucose POC Glucose 117 H 119 H 150 H Lactic Acid Calcium Phosphorus Magnesium Direct Bilirubin ALT Alkaline Phosphatase Troponin T C-Reactive Protein Total Protein Albumin Triglycerides Cholesterol LDL Cholesterol Direct HDL Cholesterol Urine WBC (Auto) Urine Creatinine Urine Total Protein Vancomycin Trough Rheumatoid Factor Complement C4 Crossmatch 09/26/16 09/26/16 09/26/16 04:25 04:25 04:25 WBC RBC 2.65 L Hgb 7.4 L Hct 21.6 L MCV MCH MCHC RDW 22.5 H Plt Count Lymph % (Auto) Johnson % (Auto) Lymph # Johnson # Seg Neutrophils % Seg Neuts % (Manual) Lymphocytes % (Manual) 6.0 L Monocytes % (Manual) Eosinophils % (Manual) 11.0 H Basophils % (Manual) Nucleated RBC % Seg Neutrophils # Seg Neutrophils # Man Lymphocytes # (Manual) 0.4 L Monocytes # (Manual) Eosinophils # (Manual) 0.6 H Fibrinogen dRVVT Confirm Interp Factor V Activity POC ABG pH POC ABG pCO2 POC ABG pO2 Sodium Potassium Chloride 97.0 L Carbon Dioxide 19 L BUN 43 H Creatinine 2.6 H Glucose 130 H POC Glucose Lactic Acid 4.40 H* Calcium 6.7 L Phosphorus Magnesium Direct Bilirubin ALT Alkaline Phosphatase Troponin T C-Reactive Protein Total Protein Albumin Triglycerides Cholesterol LDL Cholesterol Direct HDL Cholesterol Urine WBC (Auto) Urine Creatinine Urine Total Protein Vancomycin Trough Rheumatoid Factor Complement C4 Crossmatch 09/26/16 09/26/16 09/26/16 05:20 11:44 12:12 WBC RBC Hgb Hct MCV MCH MCHC RDW Plt Count Lymph % (Auto) Johnson % (Auto) Lymph # Johnson # Seg Neutrophils % Seg Neuts % (Manual) Lymphocytes % (Manual) Monocytes % (Manual) Eosinophils % (Manual) Basophils % (Manual) Nucleated RBC % Seg Neutrophils # Seg Neutrophils # Man Lymphocytes # (Manual) Monocytes # (Manual) Eosinophils # (Manual) Fibrinogen dRVVT Confirm Interp Factor V Activity POC ABG pH POC ABG pCO2 27.0 L POC ABG pO2 69 L Sodium Potassium Chloride Carbon Dioxide BUN Creatinine Glucose POC Glucose 121 H 128 H Lactic Acid Calcium Phosphorus Magnesium Direct Bilirubin ALT Alkaline Phosphatase Troponin T C-Reactive Protein Total Protein Albumin Triglycerides Cholesterol LDL Cholesterol Direct HDL Cholesterol Urine WBC (Auto) Urine Creatinine Urine Total Protein Vancomycin Trough Rheumatoid Factor Complement C4 Crossmatch 09/26/16 09/26/16 09/27/16 18:31 23:40 08:20 WBC RBC Hgb Hct MCV MCH MCHC RDW Plt Count Lymph % (Auto) Johnson % (Auto) Lymph # Johnson # Seg Neutrophils % Seg Neuts % (Manual) Lymphocytes % (Manual) Monocytes % (Manual) Eosinophils % (Manual) Basophils % (Manual) Nucleated RBC % Seg Neutrophils # Seg Neutrophils # Man Lymphocytes # (Manual) Monocytes # (Manual) Eosinophils # (Manual) Fibrinogen dRVVT Confirm Interp Factor V Activity POC ABG pH POC ABG pCO2 POC ABG pO2 Sodium Potassium Chloride Carbon Dioxide BUN Creatinine Glucose POC Glucose 120 H 133 H Lactic Acid 4.10 H* Calcium Phosphorus Magnesium Direct Bilirubin ALT Alkaline Phosphatase Troponin T C-Reactive Protein Total Protein Albumin Triglycerides Cholesterol LDL Cholesterol Direct HDL Cholesterol Urine WBC (Auto) Urine Creatinine Urine Total Protein Vancomycin Trough Rheumatoid Factor Complement C4 Crossmatch 09/27/16 09/27/16 09/27/16 11:23 15:00 18:15 WBC RBC Hgb Hct MCV MCH MCHC RDW Plt Count Lymph % (Auto) Johnson % (Auto) Lymph # Johnson # Seg Neutrophils % Seg Neuts % (Manual) Lymphocytes % (Manual) Monocytes % (Manual) Eosinophils % (Manual) Basophils % (Manual) Nucleated RBC % Seg Neutrophils # Seg Neutrophils # Man Lymphocytes # (Manual) Monocytes # (Manual) Eosinophils # (Manual) Fibrinogen dRVVT Confirm Interp Factor V Activity POC ABG pH 7.459 H POC ABG pCO2 27.1 L POC ABG pO2 140 H Sodium Potassium Chloride Carbon Dioxide BUN Creatinine Glucose POC Glucose 114 H 127 H Lactic Acid Calcium Phosphorus Magnesium Direct Bilirubin ALT Alkaline Phosphatase Troponin T C-Reactive Protein Total Protein Albumin Triglycerides Cholesterol LDL Cholesterol Direct HDL Cholesterol Urine WBC (Auto) Urine Creatinine Urine Total Protein Vancomycin Trough Rheumatoid Factor Complement C4 Crossmatch 09/27/16 09/27/16 09/28/16 Unknown Unknown 03:45 WBC RBC 2.49 L Hgb 6.8 L Hct 20.7 L MCV MCH 27 L MCHC RDW 22.1 H Plt Count Lymph % (Auto) Johnson % (Auto) Lymph # Johnson # Seg Neutrophils % Seg Neuts % (Manual) 32.0 L Lymphocytes % (Manual) 12.0 L Monocytes % (Manual) 11.0 H Eosinophils % (Manual) 10.0 H Basophils % (Manual) Nucleated RBC % Seg Neutrophils # Seg Neutrophils # Man Lymphocytes # (Manual) 1.0 L Monocytes # (Manual) 0.9 H Eosinophils # (Manual) 0.8 H Fibrinogen dRVVT Confirm Interp Factor V Activity POC ABG pH POC ABG pCO2 POC ABG pO2 Sodium 135 L 135 L Potassium 3.5 L Chloride 93.6 L 94.4 L Carbon Dioxide 17 L 21 L BUN 45 H 28 H Creatinine 3.3 H 2.5 H Glucose 106 H POC Glucose Lactic Acid Calcium 7.3 L 7.1 L Phosphorus Magnesium Direct Bilirubin ALT Alkaline Phosphatase Troponin T C-Reactive Protein Total Protein Albumin Triglycerides Cholesterol LDL Cholesterol Direct HDL Cholesterol Urine WBC (Auto) Urine Creatinine Urine Total Protein Vancomycin Trough Rheumatoid Factor Complement C4 Crossmatch 09/28/16 09/28/16 09/28/16 03:45 07:25 11:58 WBC 13.3 H RBC 3.01 L Hgb 8.4 L Hct 25.0 L MCV MCH MCHC RDW 20.5 H Plt Count 128 L Lymph % (Auto) Johnson % (Auto) Lymph # Johnson # Seg Neutrophils % Seg Neuts % (Manual) Lymphocytes % (Manual) 7.0 L Monocytes % (Manual) Eosinophils % (Manual) 6.0 H Basophils % (Manual) Nucleated RBC % Seg Neutrophils # Seg Neutrophils # Man Lymphocytes # (Manual) 0.9 L Monocytes # (Manual) Eosinophils # (Manual) 0.8 H Fibrinogen dRVVT Confirm Interp Factor V Activity POC ABG pH POC ABG pCO2 POC ABG pO2 Sodium Potassium Chloride Carbon Dioxide BUN Creatinine Glucose POC Glucose 121 H Lactic Acid 4.50 H* Calcium Phosphorus Magnesium Direct Bilirubin ALT Alkaline Phosphatase Troponin T C-Reactive Protein Total Protein Albumin Triglycerides Cholesterol LDL Cholesterol Direct HDL Cholesterol Urine WBC (Auto) Urine Creatinine Urine Total Protein Vancomycin Trough Rheumatoid Factor Complement C4 Crossmatch 09/29/16 09/29/16 09/29/16 06:45 06:45 06:45 WBC 14.9 H RBC 2.74 L Hgb 7.6 L Hct 23.2 L MCV MCH MCHC RDW 20.5 H Plt Count 81 L Lymph % (Auto) Johnson % (Auto) Lymph # Johnson # Seg Neutrophils % Seg Neuts % (Manual) 81.0 H Lymphocytes % (Manual) 4.0 L Monocytes % (Manual) Eosinophils % (Manual) Basophils % (Manual) Nucleated RBC % Seg Neutrophils # Seg Neutrophils # Man 12.1 H Lymphocytes # (Manual) 0.6 L Monocytes # (Manual) Eosinophils # (Manual) Fibrinogen dRVVT Confirm Interp Factor V Activity POC ABG pH POC ABG pCO2 POC ABG pO2 Sodium 133 L Potassium 3.4 L Chloride 92.5 L Carbon Dioxide 21 L BUN 33 H Creatinine 3.0 H Glucose POC Glucose Lactic Acid Calcium 6.6 L Phosphorus Magnesium 1.40 L Direct Bilirubin 0.9 H ALT Alkaline Phosphatase Troponin T C-Reactive Protein Total Protein 4.3 L Albumin 1.3 L Triglycerides Cholesterol LDL Cholesterol Direct HDL Cholesterol Urine WBC (Auto) Urine Creatinine Urine Total Protein Vancomycin Trough Rheumatoid Factor Complement C4 Crossmatch 09/29/16 09/29/16 09/30/16 17:52 20:12 00:07 WBC RBC Hgb Hct MCV MCH MCHC RDW Plt Count Lymph % (Auto) Johnson % (Auto) Lymph # Johnson # Seg Neutrophils % Seg Neuts % (Manual) Lymphocytes % (Manual) Monocytes % (Manual) Eosinophils % (Manual) Basophils % (Manual) Nucleated RBC % Seg Neutrophils # Seg Neutrophils # Man Lymphocytes # (Manual) Monocytes # (Manual) Eosinophils # (Manual) Fibrinogen dRVVT Confirm Interp Factor V Activity POC ABG pH POC ABG pCO2 POC ABG pO2 Sodium Potassium Chloride Carbon Dioxide BUN Creatinine Glucose POC Glucose 50 L 51 L Lactic Acid Calcium Phosphorus Magnesium Direct Bilirubin ALT Alkaline Phosphatase Troponin T 0.204 H* C-Reactive Protein Total Protein Albumin Triglycerides Cholesterol 31 L LDL Cholesterol Direct 4 L HDL Cholesterol 3 L Urine WBC (Auto) Urine Creatinine Urine Total Protein Vancomycin Trough Rheumatoid Factor Complement C4 Crossmatch 09/30/16 09/30/16 09/30/16 01:30 05:15 06:10 WBC RBC Hgb Hct MCV MCH MCHC RDW Plt Count Lymph % (Auto) Johnson % (Auto) Lymph # Johnson # Seg Neutrophils % Seg Neuts % (Manual) Lymphocytes % (Manual) Monocytes % (Manual) Eosinophils % (Manual) Basophils % (Manual) Nucleated RBC % Seg Neutrophils # Seg Neutrophils # Man Lymphocytes # (Manual) Monocytes # (Manual) Eosinophils # (Manual) Fibrinogen dRVVT Confirm Interp Factor V Activity POC ABG pH POC ABG pCO2 POC ABG pO2 Sodium 133 L Potassium 3.2 L Chloride 93.2 L Carbon Dioxide 19 L BUN 36 H Creatinine 3.2 H Glucose 104 H POC Glucose 167 H 146 H Lactic Acid Calcium 6.4 L Phosphorus Magnesium 1.60 L Direct Bilirubin ALT Alkaline Phosphatase Troponin T C-Reactive Protein Total Protein Albumin Triglycerides Cholesterol LDL Cholesterol Direct HDL Cholesterol Urine WBC (Auto) Urine Creatinine Urine Total Protein Vancomycin Trough Rheumatoid Factor Complement C4 Crossmatch 09/30/16 09/30/16 09/30/16 11:26 13:39 18:38 WBC RBC Hgb Hct MCV MCH MCHC RDW Plt Count Lymph % (Auto) Johnson % (Auto) Lymph # Johnson # Seg Neutrophils % Seg Neuts % (Manual) Lymphocytes % (Manual) Monocytes % (Manual) Eosinophils % (Manual) Basophils % (Manual) Nucleated RBC % Seg Neutrophils # Seg Neutrophils # Man Lymphocytes # (Manual) Monocytes # (Manual) Eosinophils # (Manual) Fibrinogen dRVVT Confirm Interp Factor V Activity POC ABG pH 7.479 H POC ABG pCO2 29.8 L POC ABG pO2 117 H Sodium Potassium Chloride Carbon Dioxide BUN Creatinine Glucose POC Glucose 140 H 122 H Lactic Acid Calcium Phosphorus Magnesium Direct Bilirubin ALT Alkaline Phosphatase Troponin T C-Reactive Protein Total Protein Albumin Triglycerides Cholesterol LDL Cholesterol Direct HDL Cholesterol Urine WBC (Auto) Urine Creatinine Urine Total Protein Vancomycin Trough Rheumatoid Factor Complement C4 Crossmatch 10/01/16 10/01/16 10/01/16 06:00 06:00 12:37 WBC 12.6 H RBC 2.75 L Hgb 7.3 L Hct 23.3 L MCV MCH 27 L MCHC RDW 20.6 H Plt Count 72 L Lymph % (Auto) Johnson % (Auto) Lymph # Johnson # Seg Neutrophils % Seg Neuts % (Manual) 31.0 L Lymphocytes % (Manual) 8.0 L Monocytes % (Manual) Eosinophils % (Manual) Basophils % (Manual) Nucleated RBC % 3.0 H Seg Neutrophils # Seg Neutrophils # Man Lymphocytes # (Manual) 1.0 L Monocytes # (Manual) Eosinophils # (Manual) Fibrinogen dRVVT Confirm Interp Factor V Activity POC ABG pH POC ABG pCO2 POC ABG pO2 Sodium 127 L Potassium Chloride 86.8 L Carbon Dioxide 20 L BUN 42 H Creatinine 3.5 H Glucose POC Glucose 65 L Lactic Acid Calcium 7.0 L Phosphorus Magnesium Direct Bilirubin ALT Alkaline Phosphatase Troponin T C-Reactive Protein Total Protein Albumin Triglycerides Cholesterol LDL Cholesterol Direct HDL Cholesterol Urine WBC (Auto) Urine Creatinine Urine Total Protein Vancomycin Trough Rheumatoid Factor Complement C4 Crossmatch 10/01/16 10/01/16 10/02/16 17:39 23:32 00:59 WBC RBC Hgb Hct MCV MCH MCHC RDW Plt Count Lymph % (Auto) Johnson % (Auto) Lymph # Johnson # Seg Neutrophils % Seg Neuts % (Manual) Lymphocytes % (Manual) Monocytes % (Manual) Eosinophils % (Manual) Basophils % (Manual) Nucleated RBC % Seg Neutrophils # Seg Neutrophils # Man Lymphocytes # (Manual) Monocytes # (Manual) Eosinophils # (Manual) Fibrinogen dRVVT Confirm Interp Factor V Activity POC ABG pH POC ABG pCO2 POC ABG pO2 Sodium Potassium Chloride Carbon Dioxide BUN Creatinine Glucose POC Glucose 107 H 52 L 145 H Lactic Acid Calcium Phosphorus Magnesium Direct Bilirubin ALT Alkaline Phosphatase Troponin T C-Reactive Protein Total Protein Albumin Triglycerides Cholesterol LDL Cholesterol Direct HDL Cholesterol Urine WBC (Auto) Urine Creatinine Urine Total Protein Vancomycin Trough Rheumatoid Factor Complement C4 Crossmatch 10/02/16 10/02/16 10/02/16 10:30 10:50 10:50 WBC 14.7 H RBC 2.76 L Hgb 7.4 L Hct 23.6 L MCV MCH 27 L MCHC RDW 20.2 H Plt Count 79 L Lymph % (Auto) Johnson % (Auto) Lymph # Johnson # Seg Neutrophils % Seg Neuts % (Manual) 86.0 H Lymphocytes % (Manual) 6.0 L Monocytes % (Manual) Eosinophils % (Manual) Basophils % (Manual) Nucleated RBC % Seg Neutrophils # Seg Neutrophils # Man 12.6 H Lymphocytes # (Manual) 0.9 L Monocytes # (Manual) Eosinophils # (Manual) Fibrinogen dRVVT Confirm Interp Factor V Activity POC ABG pH 7.486 H POC ABG pCO2 30.1 L POC ABG pO2 108 H Sodium 131 L Potassium 3.4 L Chloride 89.9 L Carbon Dioxide BUN 26 H Creatinine 2.6 H Glucose POC Glucose Lactic Acid Calcium 7.0 L Phosphorus Magnesium Direct Bilirubin ALT Alkaline Phosphatase Troponin T C-Reactive Protein Total Protein Albumin Triglycerides Cholesterol LDL Cholesterol Direct HDL Cholesterol Urine WBC (Auto) Urine Creatinine Urine Total Protein Vancomycin Trough Rheumatoid Factor Complement C4 Crossmatch 10/02/16 10/03/16 10/03/16 23:45 00:45 05:10 WBC 12.9 H RBC 2.77 L Hgb 7.6 L Hct 23.7 L MCV MCH 27 L MCHC RDW 19.7 H Plt Count 89 L Lymph % (Auto) Johnson % (Auto) Lymph # Johnson # Seg Neutrophils % Seg Neuts % (Manual) Lymphocytes % (Manual) 8.0 L Monocytes % (Manual) Eosinophils % (Manual) Basophils % (Manual) Nucleated RBC % Seg Neutrophils # 11.9 H Seg Neutrophils # Man Lymphocytes # (Manual) 1.0 L Monocytes # (Manual) Eosinophils # (Manual) Fibrinogen dRVVT Confirm Interp Factor V Activity POC ABG pH POC ABG pCO2 POC ABG pO2 Sodium Potassium Chloride Carbon Dioxide BUN Creatinine Glucose POC Glucose 55 L 199 H Lactic Acid Calcium Phosphorus Magnesium Direct Bilirubin ALT Alkaline Phosphatase Troponin T C-Reactive Protein Total Protein Albumin Triglycerides Cholesterol LDL Cholesterol Direct HDL Cholesterol Urine WBC (Auto) Urine Creatinine Urine Total Protein Vancomycin Trough Rheumatoid Factor Complement C4 Crossmatch 10/03/16 10/03/16 10/03/16 05:10 12:14 13:18 WBC RBC Hgb Hct MCV MCH MCHC RDW Plt Count Lymph % (Auto) Johnson % (Auto) Lymph # Johnson # Seg Neutrophils % Seg Neuts % (Manual) Lymphocytes % (Manual) Monocytes % (Manual) Eosinophils % (Manual) Basophils % (Manual) Nucleated RBC % Seg Neutrophils # Seg Neutrophils # Man Lymphocytes # (Manual) Monocytes # (Manual) Eosinophils # (Manual) Fibrinogen dRVVT Confirm Interp Factor V Activity POC ABG pH POC ABG pCO2 POC ABG pO2 Sodium 129 L Potassium 3.3 L Chloride 88.8 L Carbon Dioxide 20 L BUN 29 H Creatinine 2.8 H Glucose POC Glucose 68 L 127 H Lactic Acid Calcium 7.2 L Phosphorus Magnesium Direct Bilirubin ALT Alkaline Phosphatase Troponin T C-Reactive Protein Total Protein Albumin Triglycerides Cholesterol LDL Cholesterol Direct HDL Cholesterol Urine WBC (Auto) Urine Creatinine Urine Total Protein Vancomycin Trough Rheumatoid Factor Complement C4 Crossmatch 10/03/16 10/03/16 10/03/16 14:42 18:21 19:09 WBC RBC Hgb Hct MCV MCH MCHC RDW Plt Count Lymph % (Auto) Johnson % (Auto) Lymph # Johnson # Seg Neutrophils % Seg Neuts % (Manual) Lymphocytes % (Manual) Monocytes % (Manual) Eosinophils % (Manual) Basophils % (Manual) Nucleated RBC % Seg Neutrophils # Seg Neutrophils # Man Lymphocytes # (Manual) Monocytes # (Manual) Eosinophils # (Manual) Fibrinogen dRVVT Confirm Interp Factor V Activity POC ABG pH 7.499 H POC ABG pCO2 28.4 L POC ABG pO2 44 L Sodium Potassium Chloride Carbon Dioxide BUN Creatinine Glucose POC Glucose 64 L 205 H Lactic Acid Calcium Phosphorus Magnesium Direct Bilirubin ALT Alkaline Phosphatase Troponin T C-Reactive Protein Total Protein Albumin Triglycerides Cholesterol LDL Cholesterol Direct HDL Cholesterol Urine WBC (Auto) Urine Creatinine Urine Total Protein Vancomycin Trough Rheumatoid Factor Complement C4 Crossmatch 10/03/16 10/04/16 10/04/16 23:33 04:18 06:30 WBC RBC 2.54 L Hgb 7.1 L Hct 21.7 L MCV MCH MCHC RDW 19.5 H Plt Count 76 L Lymph % (Auto) Johnson % (Auto) Lymph # Johnson # Seg Neutrophils % Seg Neuts % (Manual) 88.0 H Lymphocytes % (Manual) 6.0 L Monocytes % (Manual) Eosinophils % (Manual) Basophils % (Manual) Nucleated RBC % Seg Neutrophils # Seg Neutrophils # Man 8.8 H Lymphocytes # (Manual) 0.6 L Monocytes # (Manual) Eosinophils # (Manual) Fibrinogen dRVVT Confirm Interp Factor V Activity POC ABG pH 7.461 H POC ABG pCO2 33.6 L POC ABG pO2 211 H Sodium Potassium Chloride Carbon Dioxide BUN Creatinine Glucose POC Glucose 136 H Lactic Acid Calcium Phosphorus Magnesium Direct Bilirubin ALT Alkaline Phosphatase Troponin T C-Reactive Protein Total Protein Albumin Triglycerides Cholesterol LDL Cholesterol Direct HDL Cholesterol Urine WBC (Auto) Urine Creatinine Urine Total Protein Vancomycin Trough Rheumatoid Factor Complement C4 Crossmatch 10/04/16 10/04/16 10/04/16 06:30 11:45 17:54 WBC RBC Hgb Hct MCV MCH MCHC RDW Plt Count Lymph % (Auto) Johnson % (Auto) Lymph # Johnson # Seg Neutrophils % Seg Neuts % (Manual) Lymphocytes % (Manual) Monocytes % (Manual) Eosinophils % (Manual) Basophils % (Manual) Nucleated RBC % Seg Neutrophils # Seg Neutrophils # Man Lymphocytes # (Manual) Monocytes # (Manual) Eosinophils # (Manual) Fibrinogen dRVVT Confirm Interp Factor V Activity POC ABG pH POC ABG pCO2 POC ABG pO2 Sodium 128 L Potassium Chloride 87.4 L Carbon Dioxide 20 L BUN 34 H Creatinine 2.9 H Glucose 127 H POC Glucose 158 H 160 H Lactic Acid Calcium 7.4 L Phosphorus Magnesium Direct Bilirubin ALT Alkaline Phosphatase Troponin T C-Reactive Protein Total Protein Albumin Triglycerides Cholesterol LDL Cholesterol Direct HDL Cholesterol Urine WBC (Auto) Urine Creatinine Urine Total Protein Vancomycin Trough Rheumatoid Factor Complement C4 Crossmatch 10/04/16 10/05/16 10/05/16 23:25 04:30 05:00 WBC RBC 2.64 L Hgb 7.5 L Hct 22.6 L MCV MCH MCHC RDW 19.3 H Plt Count 80 L Lymph % (Auto) Johnson % (Auto) Lymph # Johnson # Seg Neutrophils % Seg Neuts % (Manual) Lymphocytes % (Manual) 12.0 L Monocytes % (Manual) Eosinophils % (Manual) Basophils % (Manual) Nucleated RBC % Seg Neutrophils # Seg Neutrophils # Man Lymphocytes # (Manual) Monocytes # (Manual) Eosinophils # (Manual) Fibrinogen dRVVT Confirm Interp Factor V Activity POC ABG pH 7.475 H POC ABG pCO2 33.3 L POC ABG pO2 140 H Sodium Potassium Chloride Carbon Dioxide BUN Creatinine Glucose POC Glucose 141 H Lactic Acid Calcium Phosphorus Magnesium Direct Bilirubin ALT Alkaline Phosphatase Troponin T C-Reactive Protein Total Protein Albumin Triglycerides Cholesterol LDL Cholesterol Direct HDL Cholesterol Urine WBC (Auto) Urine Creatinine Urine Total Protein Vancomycin Trough Rheumatoid Factor Complement C4 Crossmatch 10/05/16 10/05/16 10/05/16 05:00 05:09 12:58 WBC RBC Hgb Hct MCV MCH MCHC RDW Plt Count Lymph % (Auto) Johnson % (Auto) Lymph # Johnson # Seg Neutrophils % Seg Neuts % (Manual) Lymphocytes % (Manual) Monocytes % (Manual) Eosinophils % (Manual) Basophils % (Manual) Nucleated RBC % Seg Neutrophils # Seg Neutrophils # Man Lymphocytes # (Manual) Monocytes # (Manual) Eosinophils # (Manual) Fibrinogen dRVVT Confirm Interp Factor V Activity POC ABG pH POC ABG pCO2 POC ABG pO2 Sodium 131 L Potassium Chloride 94.0 L Carbon Dioxide 20 L BUN 22 H Creatinine 2.0 H Glucose 123 H POC Glucose 166 H 179 H Lactic Acid Calcium 7.7 L Phosphorus 2.20 L D Magnesium Direct Bilirubin ALT Alkaline Phosphatase Troponin T C-Reactive Protein Total Protein Albumin Triglycerides Cholesterol LDL Cholesterol Direct HDL Cholesterol Urine WBC (Auto) Urine Creatinine Urine Total Protein Vancomycin Trough Rheumatoid Factor Complement C4 Crossmatch 10/05/16 10/05/16 10/05/16 15:50 18:53 23:12 WBC RBC Hgb Hct MCV MCH MCHC RDW Plt Count Lymph % (Auto) Johnson % (Auto) Lymph # Johnson # Seg Neutrophils % Seg Neuts % (Manual) Lymphocytes % (Manual) Monocytes % (Manual) Eosinophils % (Manual) Basophils % (Manual) Nucleated RBC % Seg Neutrophils # Seg Neutrophils # Man Lymphocytes # (Manual) Monocytes # (Manual) Eosinophils # (Manual) Fibrinogen dRVVT Confirm Interp Factor V Activity POC ABG pH POC ABG pCO2 POC ABG pO2 Sodium Potassium Chloride Carbon Dioxide BUN Creatinine Glucose POC Glucose 150 H 164 H Lactic Acid Calcium Phosphorus Magnesium Direct Bilirubin ALT Alkaline Phosphatase Troponin T C-Reactive Protein Total Protein Albumin Triglycerides Cholesterol LDL Cholesterol Direct HDL Cholesterol Urine WBC (Auto) Urine Creatinine Urine Total Protein Vancomycin Trough Rheumatoid Factor Complement C4 Crossmatch See Detail 10/06/16 10/06/16 10/06/16 03:50 03:50 04:53 WBC RBC 3.00 L Hgb 8.6 L Hct 25.8 L MCV MCH MCHC RDW 17.9 H Plt Count 65 L Lymph % (Auto) Johnson % (Auto) Lymph # Johnson # Seg Neutrophils % Seg Neuts % (Manual) 30.0 L Lymphocytes % (Manual) 5.0 L Monocytes % (Manual) Eosinophils % (Manual) Basophils % (Manual) Nucleated RBC % Seg Neutrophils # Seg Neutrophils # Man Lymphocytes # (Manual) 0.4 L Monocytes # (Manual) Eosinophils # (Manual) Fibrinogen dRVVT Confirm Interp Factor V Activity POC ABG pH 7.310 L POC ABG pCO2 49.0 H POC ABG pO2 Sodium 133 L Potassium Chloride 95.9 L Carbon Dioxide BUN 26 H Creatinine 2.0 H Glucose 116 H POC Glucose Lactic Acid Calcium 7.8 L Phosphorus Magnesium Direct Bilirubin ALT Alkaline Phosphatase Troponin T C-Reactive Protein Total Protein Albumin Triglycerides Cholesterol LDL Cholesterol Direct HDL Cholesterol Urine WBC (Auto) Urine Creatinine Urine Total Protein Vancomycin Trough Rheumatoid Factor Complement C4 Crossmatch 10/06/16 10/06/16 10/06/16 05:23 11:52 18:34 WBC RBC Hgb Hct MCV MCH MCHC RDW Plt Count Lymph % (Auto) Johnson % (Auto) Lymph # Johnson # Seg Neutrophils % Seg Neuts % (Manual) Lymphocytes % (Manual) Monocytes % (Manual) Eosinophils % (Manual) Basophils % (Manual) Nucleated RBC % Seg Neutrophils # Seg Neutrophils # Man Lymphocytes # (Manual) Monocytes # (Manual) Eosinophils # (Manual) Fibrinogen dRVVT Confirm Interp Factor V Activity POC ABG pH POC ABG pCO2 POC ABG pO2 Sodium Potassium Chloride Carbon Dioxide BUN Creatinine Glucose POC Glucose 126 H 116 H 129 H Lactic Acid Calcium Phosphorus Magnesium Direct Bilirubin ALT Alkaline Phosphatase Troponin T C-Reactive Protein Total Protein Albumin Triglycerides Cholesterol LDL Cholesterol Direct HDL Cholesterol Urine WBC (Auto) Urine Creatinine Urine Total Protein Vancomycin Trough Rheumatoid Factor Complement C4 Crossmatch 10/07/16 10/07/16 10/07/16 05:00 10:00 10:00 WBC 17.0 H RBC 2.68 L Hgb 7.3 L Hct 25.3 L MCV MCH 27 L MCHC 29 L RDW 19.6 H Plt Count 74 L Lymph % (Auto) Johnson % (Auto) Lymph # Johnson # Seg Neutrophils % Seg Neuts % (Manual) Lymphocytes % (Manual) 12.0 L Monocytes % (Manual) Eosinophils % (Manual) Basophils % (Manual) Nucleated RBC % 4.0 H Seg Neutrophils # Seg Neutrophils # Man 10.7 H Lymphocytes # (Manual) Monocytes # (Manual) Eosinophils # (Manual) Fibrinogen dRVVT Confirm Interp Factor V Activity POC ABG pH POC ABG pCO2 POC ABG pO2 Sodium 130 L Potassium 3.2 L Chloride 93.9 L Carbon Dioxide 20 L BUN 44 H Creatinine 2.7 H Glucose 129 H POC Glucose Lactic Acid Calcium 7.4 L Phosphorus Magnesium Direct Bilirubin ALT 6 L Alkaline Phosphatase 195 H Troponin T C-Reactive Protein 19.40 H Total Protein 4.9 L Albumin 1.0 L Triglycerides Cholesterol LDL Cholesterol Direct HDL Cholesterol Urine WBC (Auto) Urine Creatinine Urine Total Protein Vancomycin Trough Rheumatoid Factor Complement C4 Crossmatch 10/07/16 10/07/16 10/07/16 11:24 18:10 18:30 WBC RBC Hgb Hct MCV MCH MCHC RDW Plt Count Lymph % (Auto) Johnson % (Auto) Lymph # Johnson # Seg Neutrophils % Seg Neuts % (Manual) Lymphocytes % (Manual) Monocytes % (Manual) Eosinophils % (Manual) Basophils % (Manual) Nucleated RBC % Seg Neutrophils # Seg Neutrophils # Man Lymphocytes # (Manual) Monocytes # (Manual) Eosinophils # (Manual) Fibrinogen dRVVT Confirm Interp Factor V Activity POC ABG pH POC ABG pCO2 POC ABG pO2 Sodium Potassium Chloride Carbon Dioxide BUN Creatinine Glucose POC Glucose 116 H 130 H Lactic Acid Calcium Phosphorus Magnesium Direct Bilirubin ALT Alkaline Phosphatase Troponin T C-Reactive Protein Total Protein Albumin Triglycerides Cholesterol LDL Cholesterol Direct HDL Cholesterol Urine WBC (Auto) > 182.0 H Urine Creatinine Urine Total Protein Vancomycin Trough Rheumatoid Factor Complement C4 Crossmatch 10/08/16 10/08/16 10/08/16 00:00 04:00 04:30 WBC RBC 5.15 H Hgb 14.4 H D Hct 44.5 H D MCV MCH MCHC RDW 19.5 H Plt Count 56 L Lymph % (Auto) Johnson % (Auto) Lymph # Johnson # Seg Neutrophils % Seg Neuts % (Manual) 24.0 L Lymphocytes % (Manual) 8.0 L Monocytes % (Manual) Eosinophils % (Manual) Basophils % (Manual) Nucleated RBC % 9.0 H Seg Neutrophils # Seg Neutrophils # Man Lymphocytes # (Manual) 0.7 L Monocytes # (Manual) Eosinophils # (Manual) Fibrinogen dRVVT Confirm Interp Factor V Activity POC ABG pH POC ABG pCO2 POC ABG pO2 Sodium 132 L Potassium 3.3 L Chloride 93.6 L Carbon Dioxide 17 L BUN 59 H Creatinine 2.7 H Glucose 121 H POC Glucose 122 H Lactic Acid Calcium 7.6 L Phosphorus Magnesium Direct Bilirubin ALT Alkaline Phosphatase Troponin T C-Reactive Protein Total Protein Albumin Triglycerides Cholesterol LDL Cholesterol Direct HDL Cholesterol Urine WBC (Auto) Urine Creatinine Urine Total Protein Vancomycin Trough Rheumatoid Factor Complement C4 Crossmatch 10/08/16 05:30 WBC RBC Hgb Hct MCV MCH MCHC RDW Plt Count Lymph % (Auto) Johnson % (Auto) Lymph # Johnson # Seg Neutrophils % Seg Neuts % (Manual) Lymphocytes % (Manual) Monocytes % (Manual) Eosinophils % (Manual) Basophils % (Manual) Nucleated RBC % Seg Neutrophils # Seg Neutrophils # Man Lymphocytes # (Manual) Monocytes # (Manual) Eosinophils # (Manual) Fibrinogen dRVVT Confirm Interp Factor V Activity POC ABG pH POC ABG pCO2 POC ABG pO2 Sodium Potassium Chloride Carbon Dioxide BUN Creatinine Glucose POC Glucose 125 H Lactic Acid Calcium Phosphorus Magnesium Direct Bilirubin ALT Alkaline Phosphatase Troponin T C-Reactive Protein Total Protein Albumin Triglycerides Cholesterol LDL Cholesterol Direct HDL Cholesterol Urine WBC (Auto) Urine Creatinine Urine Total Protein Vancomycin Trough Rheumatoid Factor Complement C4 Crossmatch Allied health notes reviewed: RT
--- NOTE | 2016-10-08 14:07 | Progress Note ---
Assessment and Plan Assessment: 1) Recurrent Sepsis: Improving, fever and leukocytosis resolved today. -Current sepsis etiology - peritonitis from gastric perforation +/- UTI. -Initial sepsis etiology - presumed aspiration pneumonia, and another septic episode on 09/23 from Candidemia. 2) Peritonitis: from gastric perforation from dislodged PEG with significant ascites -S/P exlap, repair of gastric perforation with wedge gastrectomy, abdominal washout, drain placement on 10/05. 3) Candidemia: -Blood cultures positive for Silvia albicans on 09/23 -Blood cultures positive on 09/25 -Blood cutlures negative on 09/30 -PICC line changed on 10/03 -Source ? gastric perf (PEG placed on 09/20) +/- TPN +/- central lines -TTE pending 4) CA-UTI 5) Diarrhea - ? etiology ? antibiotic-induced 6) Initial presumed aspiration pneumonia 7) Presumed UTI: urine cx 09/23 multiple species 8) Respiratory failure s/p trach 9) Recent CVA-left MCA CVA 10) Uncontrolled HTN 11) Acute on CKD 12) Extensive back skin peeling ? burn from gastric secretions. Doubt allergic reaction Plan: -exchange gutierrez cath -f/u TTE to r/o endocarditis in view of Candidemia and recurrent fever -f/u repeat blood cultures, urine culture and tracheal aspirate cultures -f/u procalcitonin, C-reactive protein (CRP) -continue zosyn to cover peritonitis and micafungin to cover Silvia albicans -ask cards if amiodarone can be exchanged to another regime so fluconazole can be started. Silvia albicans is full sensitive to fluconazole. -monitor diarrhea Thank you Dr Sari Brown for your consultation, will follow up with you. Pauline Carias MD Infectious Diseases Specialist [facility] ([facility] M [phone] O [phone] Subjective Date of service: 10/08/16 Principal diagnosis: Acute resp failure on MVS; S/P Acute CVA; Acute Encephalopathy; JUANITA Interval history: Remains somnolent not following commands, on the vent on CPAP this am via trach , no pressors. No fever last 24h. +oliguric. +copious diarrhea. Microbiology: Blood cultures: 09/13 neg 09/23 Silvia albicans 09/25 Silvia 09/29 neg 10/07 pending Urine cultures: 09/10 neg 09/13 neg 8/ 10-100K mixed species 10/07 pending Respiratory cultures: 09/07 neg 09/13 neg 09/23 neg Wound cultures: Stool cultures: Current Antimicrobials: zosyn 10/07 Micafungin 09/27 Previous Antimicrobials: Zosyn Vancomycin PO 10/01 Metronidazole 09/25 Objective - Exam Narrative Exam: General appearance: somnolent non verbal, on the vent via trach no following commands Eyes: anicteric sclera, moist conjunctivae; PERRLA HENT: Atraumatic; oropharynx limited; Normal external ears. +NGT with greenish secretion Neck: +trach in place; supple, no thyromegaly or lymphadenopathy Lungs: coarse BS bilateral CV: tachycardic Abdomen: Soft, non-tender, +drain with purulent drainage, +copious diarrhea. + old PEG site no drainage. Extremities: +peripheral edema no extremity lymphadenopathy Skin: Julian sub mammary ulcers, extensive skin peeling on back Psych: Anxious. Neuro: somnolent non verbal on the vent. Lines: left arm PICC placed on 10/03 - Constitutional Vitals: Vital Signs Temp Pulse Resp BP Pulse Ox 98.5 F 90 33 H 190/94 100 10/08/16 12:00 10/08/16 13:30 10/08/16 13:30 10/08/16 13:30 10/08/16 13:30 Temperature -Last 24 Hours Temperature 98.5 F Temperature 98.4 F Temperature 98.3 F Temperature 98.9 F Temperature 99.6 F Temperature 99.6 F Temperature 99.8 F - Labs CBC & Chem 7: 10/08/16 04:30 10/08/16 04:00 Labs: Abnormal lab results 10/07/16 10/07/16 10/08/16 Range/Units 18:10 18:30 00:00 RBC (3.65-5.03) M/mm3 Hgb (10.1-14.3) gm/dl Hct (30.3-42.9) % RDW (13.2-15.2) % Plt Count (140-440) K/mm3 Seg Neuts % (Manual) (40.0-70.0) % Lymphocytes % (Manual) (13.4-35.0) % Nucleated RBC % (0.0-0.9) % Lymphocytes # (Manual) (1.2-5.4) K/mm3 POC ABG pCO2 (35-45) POC ABG pO2 (80-105) Sodium (137-145) mmol/L Potassium (3.6-5.0) mmol/L Chloride (98-107) mmol/L Carbon Dioxide (22-30) mmol/L BUN (7-17) mg/dL Creatinine (0.7-1.2) mg/dL Glucose (65-100) mg/dL POC Glucose 130 H 122 H (70-105) Calcium (8.4-10.2) mg/dL Urine WBC (Auto) > 182.0 H (0.0-6.0) /HPF 10/08/16 10/08/16 10/08/16 Range/Units 04:00 04:30 05:30 RBC 5.15 H (3.65-5.03) M/mm3 Hgb 14.4 H D (10.1-14.3) gm/dl Hct 44.5 H D (30.3-42.9) % RDW 19.5 H (13.2-15.2) % Plt Count 56 L (140-440) K/mm3 Seg Neuts % (Manual) 24.0 L (40.0-70.0) % Lymphocytes % (Manual) 8.0 L (13.4-35.0) % Nucleated RBC % 9.0 H (0.0-0.9) % Lymphocytes # (Manual) 0.7 L (1.2-5.4) K/mm3 POC ABG pCO2 (35-45) POC ABG pO2 (80-105) Sodium 132 L (137-145) mmol/L Potassium 3.3 L (3.6-5.0) mmol/L Chloride 93.6 L (98-107) mmol/L Carbon Dioxide 17 L (22-30) mmol/L BUN 59 H (7-17) mg/dL Creatinine 2.7 H (0.7-1.2) mg/dL Glucose 121 H (65-100) mg/dL POC Glucose 125 H (70-105) Calcium 7.6 L (8.4-10.2) mg/dL Urine WBC (Auto) (0.0-6.0) /HPF 08/19/17 08/19/17 Range/Units 11:51 12:49 RBC (3.65-5.03) M/mm3 Hgb (10.1-14.3) gm/dl Hct (30.3-42.9) % RDW (13.2-15.2) % Plt Count (140-440) K/mm3 Seg Neuts % (Manual) (40.0-70.0) % Lymphocytes % (Manual) (13.4-35.0) % Nucleated RBC % (0.0-0.9) % Lymphocytes # (Manual) (1.2-5.4) K/mm3 POC ABG pCO2 28.2 L (35-45) POC ABG pO2 111 H (80-105) Sodium (137-145) mmol/L Potassium (3.6-5.0) mmol/L Chloride (98-107) mmol/L Carbon Dioxide (22-30) mmol/L BUN (7-17) mg/dL Creatinine (0.7-1.2) mg/dL Glucose (65-100) mg/dL POC Glucose 150 H (70-105) Calcium (8.4-10.2) mg/dL Urine WBC (Auto) (0.0-6.0) /HPF
--- NOTE | 2016-10-08 15:55 | Progress Note ---
Assessment and Plan - Patient Problems (1) Acute respiratory failure with hypoxia Current Visit: Yes Status: Acute (2) Dislodged gastrostomy tube Current Visit: Yes Status: Acute Plan to address problem: continue supportive care continue NPO/TPN Local wound care and drain to bulb suction Subjective Date of service: 10/08/16 Patient Reports: Positive: other (remains on vent and unresponsive) Objective Vital Signs - 12hr 10/08/16 10/08/16 10/08/16 03:56 04:00 04:30 Temperature 98.9 F Pulse Rate 99 H 101 H 100 H Pulse Rate [ From Monitor] Respiratory 37 H 37 H Rate Respiratory 35 H Rate [ Generalized] Blood Pressure 219/82 219/92 219/92 O2 Sat by Pulse 100 99 100 Oximetry O2 Sat by Pulse Oximetry [ Assessment] 10/08/16 10/08/16 10/08/16 04:52 05:00 05:30 Temperature Pulse Rate 99 H 100 H 105 H Pulse Rate [ From Monitor] Respiratory 35 H 36 H Rate Respiratory Rate [ Generalized] Blood Pressure 219/92 174/78 174/78 O2 Sat by Pulse 100 100 Oximetry O2 Sat by Pulse Oximetry [ Assessment] 10/08/16 10/08/16 10/08/16 06:00 06:30 06:53 Temperature Pulse Rate 90 89 99 H Pulse Rate [ From Monitor] Respiratory 16 23 Rate Respiratory Rate [ Generalized] Blood Pressure 176/80 176/80 176/80 O2 Sat by Pulse 100 Oximetry O2 Sat by Pulse Oximetry [ Assessment] 10/08/16 10/08/16 10/08/16 07:00 07:30 08:00 Temperature 98.3 F 98.4 F Pulse Rate 83 87 89 Pulse Rate [ 88 From Monitor] Respiratory 30 H 29 H 29 H Rate Respiratory Rate [ Generalized] Blood Pressure 125/54 125/54 148/82 O2 Sat by Pulse 100 100 100 Oximetry O2 Sat by Pulse Oximetry [ Assessment] 10/08/16 10/08/16 10/08/16 08:30 09:00 09:30 Temperature Pulse Rate 88 88 86 Pulse Rate [ From Monitor] Respiratory 29 H 31 H 30 H Rate Respiratory Rate [ Generalized] Blood Pressure 153/76 148/82 148/82 O2 Sat by Pulse 100 100 100 Oximetry O2 Sat by Pulse Oximetry [ Assessment] 10/08/16 10/08/16 10/08/16 10:00 10:15 10:22 Temperature Pulse Rate 87 93 H Pulse Rate [ From Monitor] Respiratory 31 H 38 H Rate Respiratory Rate [ Generalized] Blood Pressure 134/86 134/86 O2 Sat by Pulse 100 100 Oximetry O2 Sat by Pulse 100 Oximetry [ Assessment] 10/08/16 10/08/16 10/08/16 10:30 11:00 11:30 Temperature Pulse Rate 90 88 93 H Pulse Rate [ From Monitor] Respiratory 36 H 35 H 35 H Rate Respiratory Rate [ Generalized] Blood Pressure 134/86 156/72 156/72 O2 Sat by Pulse 100 100 100 Oximetry O2 Sat by Pulse Oximetry [ Assessment] 10/08/16 10/08/16 10/08/16 12:00 12:15 12:30 Temperature 98.5 F Pulse Rate 91 H 91 H 93 H Pulse Rate [ From Monitor] Respiratory 37 H 37 H 14 Rate Respiratory Rate [ Generalized] Blood Pressure 187/90 187/90 187/90 O2 Sat by Pulse 100 100 100 Oximetry O2 Sat by Pulse Oximetry [ Assessment] 10/08/16 10/08/16 10/08/16 13:00 13:30 14:00 Temperature Pulse Rate 90 90 91 H Pulse Rate [ From Monitor] Respiratory 39 H 33 H 15 Rate Respiratory Rate [ Generalized] Blood Pressure 190/94 190/94 223/107 O2 Sat by Pulse 99 100 100 Oximetry O2 Sat by Pulse Oximetry [ Assessment] 10/08/16 10/08/16 10/08/16 14:30 15:00 15:30 Temperature Pulse Rate 85 84 86 Pulse Rate [ From Monitor] Respiratory 28 H 27 H 33 H Rate Respiratory Rate [ Generalized] Blood Pressure 144/81 136/81 136/81 O2 Sat by Pulse 100 100 99 Oximetry O2 Sat by Pulse Oximetry [ Assessment] - Abdomen soft, not distended, other (old PEg site with minimaloutput; drain with more serous output) - Labs 10/08/16 04:30 10/08/16 04:00 Diabetes panel 10/08/16 Range/Units 04:00 Sodium 132 L (137-145) mmol/L Potassium 3.3 L (3.6-5.0) mmol/L Chloride 93.6 L (98-107) mmol/L Carbon Dioxide 17 L (22-30) mmol/L BUN 59 H (7-17) mg/dL Creatinine 2.7 H (0.7-1.2) mg/dL Glucose 121 H (65-100) mg/dL Calcium 7.6 L (8.4-10.2) mg/dL Calcium panel 10/08/16 Range/Units 04:00 Calcium 7.6 L (8.4-10.2) mg/dL Phosphorus 3.70 (2.5-4.5) mg/dL Pituitary panel 10/08/16 Range/Units 04:00 Sodium 132 L (137-145) mmol/L Potassium 3.3 L (3.6-5.0) mmol/L Chloride 93.6 L (98-107) mmol/L Carbon Dioxide 17 L (22-30) mmol/L BUN 59 H (7-17) mg/dL Creatinine 2.7 H (0.7-1.2) mg/dL Glucose 121 H (65-100) mg/dL Calcium 7.6 L (8.4-10.2) mg/dL Adrenal panel 10/08/16 Range/Units 04:00 Sodium 132 L (137-145) mmol/L Potassium 3.3 L (3.6-5.0) mmol/L Chloride 93.6 L (98-107) mmol/L Carbon Dioxide 17 L (22-30) mmol/L BUN 59 H (7-17) mg/dL Creatinine 2.7 H (0.7-1.2) mg/dL Glucose 121 H (65-100) mg/dL Calcium 7.6 L (8.4-10.2) mg/dL
[2016-10-08] MEDS ORDERED: CATHFLO IV PRN (16:18)
[2016-10-08] MEDS ORDERED: WATER FOR INJ (PF) 10 ML ONE (16:43)
[2016-10-08] MEDS: fentaNYL DRIP Premix 2,000 MCG/100 ML BAG IV SCH ×2 (17:00→21:47)
[2016-10-08] MEDS: ASPIRIN PO SCH ×2 (17:03→17:06)
[2016-10-08] MEDS ORDERED: TPN ADULT 2,016 ML IV SCH ×2 (20:00)
[2016-10-08 20:07] LABS: Hematocrit 22.4 % (30.3-42.9); Hemoglobin 7.1 gm/dl (10.1-14.3)
[2016-10-08 20:14] LABS: INR 1.41 (0.87-1.13)
--- NOTE | 2016-10-08 20:53 | Progress Note ---
Assessment and Plan Assessment and plan: 1. Acute hypoxic respiratory failure On mechanical ventilation Status post trach 2. Acute massive left MCA CVA Status post TPA Aspirin/statin Supportive care 3. Encephalopathy Multifactorial, treating underlying conditions 4. Recurrent sepsis with septic shock Presumed aspiration pneumonia/, UTI/candidemia/peritonitis due to gastric perforation from dislodged PEG Off pressors now Antibiotic/antifungals per ID recommendation 5. Dislodged PEG Status post wedge gastrectomy repair of gastric perforation, abdominal washout and drain placement Surgery following 6. Acute blood loss anemia acquiring PRBC transfusion 7. Thrombocytopenia 8. Acute on chronic renal failure If further worsening, nephrology consider dialysis 9. Electrolyte imbalances Replete, recheck 10. Paroxysmal A. fib Status post failed conversion on 09/25 Amiodarone drip No anticoagulation due to anemia/thrombocytopenia, massive CVA 11. Diabetes Insulin/SSI 12. Severe protein caloric malnutrition Currently on TPN 13. Extensive back skin peeling 14. DVT prophylaxis SCDs, no pharmacological agent given anemia requiring multiple PRBC transfusions , thrombocytopenia, massive stroke 15. FULL Code 16. Poor prognosis History Interval history: Nonresponsive, off pressors, purulent drainage of JUAN drain Hospitalist Physical - Constitutional Vitals: Temp Pulse Resp BP Pulse Ox 99.6 F 88 24 141/85 100 10/08/16 20:00 10/08/16 19:39 10/08/16 18:30 10/08/16 19:39 10/08/16 19:39 General appearance: Present: mild distress, obese, other (on vent, non- responsive) - Neck Neck: Present: other (trach). Absent: enlarged thyroid, masses or JVD - Respiratory Respiratory effort: other (on vent) Respiratory: bilateral: diminished, negative: rhonchi, wheezing - Cardiovascular Rhythm: irregularly irregular Heart Sounds: Present: S1 & S2. Absent: systolic murmur - Extremities Extremities: no ischemia Extremity abnormal: edema - Abdominal General gastrointestinal: soft, non-distended, hypoactive bowel sounds, other ( drain in place) - Psychiatric Psychiatric: other (unresponsive) Results - Labs CBC & Chem 7: 10/09/16 16:20 10/09/16 03:45 Labs: Laboratory Last Values WBC 8.7 K/mm3 (4.5-11.0) 10/08/16 04:30 RBC 5.15 M/mm3 (3.65-5.03) H 10/08/16 04:30 Hgb 7.1 gm/dl (10.1-14.3) L D 10/08/16 19:30 Hct 22.4 % (30.3-42.9) L D 10/08/16 19:30 MCV 86 fl (79-97) 10/08/16 04:30 MCH 28 pg (28-32) 10/08/16 04:30 MCHC 32 % (30-34) 10/08/16 04:30 RDW 19.5 % (13.2-15.2) H 10/08/16 04:30 Plt Count 56 K/mm3 (140-440) L 10/08/16 04:30 Lymph % (Auto) 6.9 % (13.4-35.0) L 09/21/16 07:45 [place] % (Auto) 0.5 % (0.0-7.3) 10/03/16 05:10 Eos % (Auto) 1.3 % (0.0-4.3) 10/03/16 05:10 Baso % (Auto) 0.2 % (0.0-1.8) 09/21/16 07:45 Lymph # 0.9 K/mm3 (1.2-5.4) L 09/21/16 07:45 [place] # 0.1 K/mm3 (0.0-0.8) 10/03/16 05:10 Eos # 0.2 K/mm3 (0.0-0.4) 10/03/16 05:10 Baso # 0.0 K/mm3 (0.0-0.1) 10/03/16 05:10 Add Manual Diff Complete 10/08/16 04:30 Total Counted 100 10/08/16 04:30 Seg Neutrophils % Hydraulic Mechanic 10/03/16 05:10 Seg Neuts % (Manual) 24.0 % (40.0-70.0) L 10/08/16 04:30 Band Neutrophils % 61.0 % 10/08/16 04:30 Lymphocytes % (Manual) 8.0 % (13.4-35.0) L 10/08/16 04:30 Reactive Lymphs % (Man) 0 % 10/08/16 04:30 Monocytes % (Manual) 7.0 % (0.0-7.3) 10/08/16 04:30 Eosinophils % (Manual) 0 % (0.0-4.3) 10/08/16 04:30 Basophils % (Manual) 0 % (0.0-1.8) 10/08/16 04:30 Metamyelocytes % 0 % 10/08/16 04:30 Myelocytes % 0 % 10/08/16 04:30 Promyelocytes % 0 % 10/08/16 04:30 Blast Cells % 0 % 10/08/16 04:30 Nucleated RBC % 9.0 % (0.0-0.9) H 10/08/16 04:30 Seg Neutrophils # 11.9 K/mm3 (1.8-7.7) H 10/03/16 05:10 Seg Neutrophils # Man 2.1 K/mm3 (1.8-7.7) 10/08/16 04:30 Band Neutrophils # 5.3 K/mm3 10/08/16 04:30 Lymphocytes # (Manual) 0.7 K/mm3 (1.2-5.4) L 10/08/16 04:30 Abs React Lymphs (Man) 0.0 K/mm3 10/08/16 04:30 Monocytes # (Manual) 0.6 K/mm3 (0.0-0.8) 10/08/16 04:30 Eosinophils # (Manual) 0.0 K/mm3 (0.0-0.4) 10/08/16 04:30 Basophils # (Manual) 0.0 K/mm3 (0.0-0.1) 10/08/16 04:30 Metamyelocytes # 0.0 K/mm3 10/08/16 04:30 Myelocytes # 0.0 K/mm3 10/08/16 04:30 Promyelocytes # 0.0 K/mm3 10/08/16 04:30 Blast Cells # 0.0 K/mm3 10/08/16 04:30 Pathologist Review 09/13/16 04:00 WBC Morphology Not Reportable 10/08/16 04:30 Hypersegmented Neuts Not Reportable 10/08/16 04:30 Hyposegmented Neuts Not Reportable 10/08/16 04:30 Hypogranular Neuts Not Reportable 10/08/16 04:30 Smudge Cells Not Reportable 10/08/16 04:30 Toxic Granulation Not Reportable 10/08/16 04:30 Toxic Vacuolation Few 10/08/16 04:30 Dohle Bodies Few 10/08/16 04:30 Pelger-Huet Anomaly Not Reportable 10/08/16 04:30 Jasmina Rods Not Reportable 10/08/16 04:30 Platelet Estimate Appears normal 10/08/16 04:30 Clumped Platelets Not Reportable 10/08/16 04:30 Plt Clumps, EDTA Not Reportable 10/08/16 04:30 Large Platelets Not Reportable 10/08/16 04:30 Giant Platelets Not Reportable 10/08/16 04:30 Platelet Satelliting Not Reportable 10/08/16 04:30 Plt Morphology Comment Not Reportable 10/08/16 04:30 RBC Morphology Not Reportable 10/08/16 04:30 Dimorphic RBCs Not Reportable 10/08/16 04:30 Polychromasia 1+ 10/08/16 04:30 Hypochromasia 1+ 10/08/16 04:30 Poikilocytosis Not Reportable 10/08/16 04:30 Anisocytosis 1+ 10/08/16 04:30 Microcytosis Not Reportable 10/08/16 04:30 Macrocytosis Not Reportable 10/08/16 04:30 Spherocytes Not Reportable 10/08/16 04:30 Pappenheimer Bodies Not Reportable 10/08/16 04:30 Sickle Cells Not Reportable 10/08/16 04:30 Target Cells Not Reportable 10/08/16 04:30 Tear Drop Cells Not Reportable 10/08/16 04:30 Ovalocytes Not Reportable 10/08/16 04:30 Stomatocytes Few 10/06/16 03:50 Helmet Cells Not Reportable 10/08/16 04:30 Monet-[place]la Bodies Not Reportable 10/08/16 04:30 [place] Rings Not Reportable 10/08/16 04:30 Chuck Cells Not Reportable 10/08/16 04:30 Bite Cells Not Reportable 10/08/16 04:30 Crenated Cell Not Reportable 10/08/16 04:30 Elliptocytes Not Reportable 10/08/16 04:30 Acanthocytes (Spur) Not Reportable 10/08/16 04:30 Rouleaux Not Reportable 10/08/16 04:30 Hemoglobin C Crystals Not Reportable 10/08/16 04:30 Schistocytes Not Reportable 10/08/16 04:30 Malaria parasites Not Reportable 10/08/16 04:30 ESR > 140.0 mm/Hr (0-20) 09/08/16 11:48 Jun Bodies Not Reportable 10/08/16 04:30 Hem Pathologist Commnt No 10/08/16 04:30 PT 18.0 Sec. (12.2-14.9) H 10/08/16 19:30 INR 1.41 (0.87-1.13) H 10/08/16 19:30 APTT 24.4 Sec. (24.2-36.6) 09/15/16 05:00 Thrombin Time 16.8 Sec. (15.1-19.6) 09/03/16 00:10 Fibrinogen 750 mg/dl (211-480) H 09/08/16 11:48 Lupus Anticoagulant see below 09/12/16 09:59 LA PTT Baseline See scanned report 09/12/16 09:59 dRVVT Confirm Interp Positive (Negative) H 09/12/16 09:59 dRVVT Screen 50:50 See scanned report 09/12/16 09:59 dRVVT Mix Interpret See scanned report 09/12/16 09:59 Protein C Antigen 122 % (70-140) 09/08/16 15:35 Free Protein S 97 % normal (50-147) 09/08/16 15:35 Total Protein S 109 % (70-140) 09/08/16 15:35 Antithrombin III Ag 100 % (80-120) 09/08/16 15:35 Heparin Anti-Xa, Unfract Negative (Negative) 09/29/16 13:35 Factor V Activity 182 % (65-150) H 09/08/16 15:35 POC ABG pH 7.437 (7.35-7.45) 10/08/16 12:49 POC ABG pCO2 28.2 (35-45) L 10/08/16 12:49 POC ABG pO2 111 (80-105) H 10/08/16 12:49 POC ABG HCO3 19.0 10/08/16 12:49 POC ABG Total CO2 20 10/08/16 12:49 POC ABG O2 Sat 99 10/08/16 12:49 POC ABG Base Excess -5 10/08/16 12:49 FiO2 28 % 10/08/16 12:49 Sodium 132 mmol/L (137-145) L 10/08/16 04:00 Potassium 3.3 mmol/L (3.6-5.0) L 10/08/16 04:00 Chloride 93.6 mmol/L (98-107) L 10/08/16 04:00 Carbon Dioxide 17 mmol/L (22-30) L 10/08/16 04:00 Anion Gap 25 mmol/L 10/08/16 04:00 BUN 59 mg/dL (7-17) H 10/08/16 04:00 Creatinine 2.7 mg/dL (0.7-1.2) H 10/08/16 04:00 Estimated GFR 23 ml/min 10/08/16 04:00 BUN/Creatinine Ratio 21.85 % 10/08/16 04:00 Glucose 121 mg/dL (65-100) H 10/08/16 04:00 POC Glucose 145 (70-105) H 10/08/16 17:07 Osmolality 351 Mosm/kg 09/16/16 11:47 Lactic Acid 4.50 mmol/L (0.7-2.0) H* 09/28/16 07:25 Calcium 7.6 mg/dL (8.4-10.2) L 10/08/16 04:00 Phosphorus 3.70 mg/dL (2.5-4.5) 10/08/16 04:00 Magnesium 2.10 mg/dL (1.7-2.3) 10/08/16 04:00 Total Bilirubin 0.60 mg/dL (0.1-1.2) 10/07/16 10:00 Direct Bilirubin 0.9 mg/dL (0-0.2) H 09/29/16 06:45 Indirect Bilirubin 0.3 mg/dL 09/29/16 06:45 AST 32 units/L (5-40) 10/07/16 10:00 ALT 6 units/L (7-56) L 10/07/16 10:00 Alkaline Phosphatase 195 units/L (35-129) H 10/07/16 10:00 Ammonia 27.0 umol/L (25-60) 09/07/16 08:37 Total Creatine Kinase 121 units/L (30-135) 09/29/16 20:12 CK-MB (CK-2) < 1.0 ng/mL (0.0-4.0) 09/29/16 20:12 CK-MB (CK-2) Rel Index 0.8 (0-4) 09/29/16 20:12 Troponin T 0.204 ng/mL (0.00-0.029) H* 09/29/16 20:12 C-Reactive Protein 19.40 mg/dL (0.00-1.30) H 10/07/16 10:00 Total Protein 4.9 g/dL (6.3-8.2) L 10/07/16 10:00 Albumin 1.0 g/dL (3.9-5) L 10/07/16 10:00 Albumin/Globulin Ratio 0.3 % 10/07/16 10:00 Triglycerides 137 mg/dL (2-149) 09/29/16 20:12 Cholesterol 31 mg/dL (50-199) L 09/29/16 20:12 LDL Cholesterol Direct 4 mg/dL (50-130) L 09/29/16 20:12 HDL Cholesterol 3 mg/dL (40-59) L 09/29/16 20:12 Cholesterol/HDL Ratio 10.33 % 09/29/16 20:12 Angiotensin Convert Enz See scanned report 09/08/16 11:48 Serotonin Release Assay See scanned report 09/29/16 13:35 TSH 1.010 mlU/mL (0.270-4.200) 09/07/16 08:37 HCG, Qual Negative (Negative) 09/03/16 00:10 Urine Color [place] (Yellow) 10/07/16 18:30 Urine Turbidity Turbid (Clear) 10/07/16 18:30 Urine pH 7.0 (5.0-7.0) 10/07/16 18:30 Ur Specific [place] 1.012 (1.003-1.030) 10/07/16 18:30 Urine Protein 100 mg/dl mg/dL (Negative) 10/07/16 18:30 Urine Glucose (UA) Neg mg/dL (Negative) 10/07/16 18:30 Urine Ketones Neg mg/dL (Negative) 10/07/16 18:30 Urine Blood Lg (Negative) 10/07/16 18:30 Urine Nitrite Neg (Negative) 10/07/16 18:30 Urine Bilirubin Neg (Negative) 10/07/16 18:30 Urine Urobilinogen < 2.0 mg/dL (<2.0) 10/07/16 18:30 Ur Leukocyte Esterase Lg (Negative) 10/07/16 18:30 Urine WBC (Auto) > 182.0 /HPF (0.0-6.0) H 10/07/16 18:30 Urine RBC (Auto) > 182.0 /HPF (0.0-6.0) 10/07/16 18:30 U Epithel Cells (Auto) 1.0 /HPF (0-13.0) 10/07/16 18:30 Urine Bacteria (Auto) 3+ /HPF (Negative) 10/07/16 18:30 Urine WBC Clumps 2+ /HPF 09/07/16 02:47 Hyaline Casts 4 /LPF 09/07/16 02:47 Urine Mucus Few /HPF 10/07/16 18:30 Urine Yeast (Budding) 3+ /HPF 10/07/16 18:30 Urine Eosinophils None seen (None Seen) 09/07/16 16:00 Urine Total Volume 1350 09/21/16 12:00 Urine Creatinine 54.8 mg/dL (0.1-20.0) H 09/21/16 12:00 Height (in) 67.0 inches 09/21/16 12:00 Weight (lb) 92.0 lbs 09/21/16 12:00 Creatinine Clearance 15 09/21/16 12:00 Urine Sodium 36 mEq/L 09/16/16 19:19 Urine Total Protein 16 mg/dL (5-11.8) H 09/16/16 19:19 Vancomycin Trough 2.3 ug/mL (5.0-20.0) L 09/21/16 13:00 Random Vancomycin 2.3 ug/mL (0-40.0) 09/09/16 03:00 Urine Opiates Screen Presumptive negative 09/03/16 15:11 Urine Methadone Screen Presumptive positive 09/03/16 15:11 Ur Barbiturates Screen Presumptive positive 09/03/16 15:11 Ur Phencyclidine Scrn Presumptive negative 09/03/16 15:11 Ur Amphetamines Screen Presumptive negative 09/03/16 15:11 U Benzodiazepines Scrn Presumptive negative 09/03/16 15:11 Urine Cocaine Screen Presumptive negative 09/03/16 15:11 U Marijuana (THC) Screen Presumptive positive 09/03/16 15:11 Drugs of Abuse Note Disclamer 09/03/16 15:11 Rheumatoid Factor 24 IU/ml (0-13) H 09/08/16 11:48 SAHIL Screen Negative (Negative) 09/07/16 09:20 Proteinase 3 (PR3) Ab <1.0 AI (<1.0) 09/07/16 09:20 Myeloperoxidase Ab <1.0 AI (<1.0) 09/07/16 09:20 Sjogren's Antibody <1.0 AI (<1.0) 09/08/16 15:35 Scl-70 Scleroderma Ab <1.0 AI (<1.0) 09/08/16 15:35 Centromere B Antibody <1.0 AI (<1.0) 09/08/16 12:02 Heparin-induced Plt Ab Negative (Negative) 09/29/16 13:35 UF Heparin High Dose 11 % Release 09/29/16 13:35 SUDHIR UFH Low Dose 0.1 6 % Release 09/29/16 13:35 SUDHIR UFH Low Dose 0.5 8 % Release 09/29/16 13:35 Cardiolipid IgG Ab <14 GPL (<=14) 09/12/16 09:59 Cardiolipid IgA Ab <11 APL (<=11) 09/12/16 09:59 Cardiolipid IgM Ab <12 MPL (<=12) 09/12/16 09:59 Complement C3 148 mg/dL (90-180) 09/07/16 09:20 Complement C4 58 mg/dL (16-47) H 09/07/16 09:20 RPR Nonreactive (Nonreactive) 09/08/16 11:48 Hepatitis A IgM Ab Non-reactive (NonReactive) 09/24/16 14:40 Hep Bs Antigen Non-reactive (Negative) 09/24/16 14:40 Hep B Core IgM Ab Non-reactive (NonReactive) 09/24/16 14:40 Hepatitis C Antibody Non-reactive (NonReactive) 09/24/16 14:40 HIV 1&2 Antibody Rapid Non react (Non React) 09/08/16 11:48 HIV P24 Antigen Non react (Non React) 09/08/16 11:48 Blood Type A POSITIVE 10/05/16 15:50 Antibody Screen Negative 10/05/16 15:50 DELORIS Antibody Screen Negative 09/25/16 10:30 Crossmatch See Detail 10/05/16 15:50
[2016-10-08] MEDS: MYCAMINE 100 MG in NACL 0.9% 100 ML IV SCH (21:42)
[2016-10-09 04:23] LABS: Hematocrit 21.1 % (30.3-42.9); Hemoglobin 6.7 gm/dl (10.1-14.3); Mean Corpuscular HGB Conc 32 % (30-34); Mean Corpuscular Hemoglobin 28 pg (28-32); Mean Corpuscular Volume 89 fl (79-97); Red Blood Count 2.36 M/mm3 (3.65-5.03); Red Cell Distribution Width 19.5 % (13.2-15.2)
[2016-10-09 04:38] LABS: INR 1.51 (0.87-1.13)
[2016-10-09 04:50] LABS: Platelet Count 75 K/mm3 (140-440)
[2016-10-09 05:01] LABS: BUN/Creatinine Ratio 25.31; Calcium 7.4 mg/dL (8.4-10.2)
[2016-10-09 05:45] LABS: Anisocytosis 1+; Band Neutrophils # (Manual) 2.5 K/mm3; Basophils % (Manual) 0 % (0.0-1.8); Eosinophils % (Manual) 0 % (0.0-4.3); Total Cells Counted 100
[2016-10-09 05:46] LABS: Hypochromasia 1+; Macrocytosis 1+; Platelet Estimate Consistent w Auto
[2016-10-09] MEDS ORDERED: NACL 0.9% 500 ML 500 ML IV ONE (06:43)
[2016-10-09] MEDS: ZOSYN/NS 2.25 GM/50ML 2.25 GM/50 ML BAG IV SCH ×4 (06:59→23:15)
[2016-10-09] MEDS: HumuLIN R SUB-Q SCH ×4 (07:00→18:02)
[2016-10-09] MEDS ORDERED: NACL 0.9% 500 ML 500 ML ONE (09:04)
[2016-10-09] MEDS: CORDARONE 900 MG in D5W 482 ML IV SCH (09:18)
[2016-10-09] MEDS: PROTONIX IV SCH ×2 (09:19→21:24)
[2016-10-09] MEDS: ALDACTONE PO SCH (09:19)
[2016-10-09] MEDS: ASPIRIN PO SCH (09:19)
--- NOTE | 2016-10-09 09:22 | Progress Note ---
Assessment and Plan Acute hypoxic respiratory failure on mechanical ventilation s/p trach and PEG Acute left MCA CVA echocardiogram demonstrates at least moderate LVH but a normal LV systolic function, EF 50-55%. no thrombus visualized on transthoracic echocardiogram. Repeat echo 10/07/2016 - Normal LVEF, no significant valvular abnormalities Dislodged PEG tube s/p repair of gastric perforation with wedge gastrectomy Hypertension s/p hypotension requiring pressor support Acute on chronic renal failure Fungemia Diabetes mellitus Anemia requiring transfusion of PRBCs Thrombocytopenia Hyponatremia Paroxysmal Afib s/p failed cardioversion on 09/25 on amiodarone drip anticoagulation not initiated due to anemia, thrombocytopenia and recent massive CVA Recommendations: Continue medical therapy and conservative cardiac management. Continue IV amiodarone drip until able to resume meds per PEG tube No anticoagulation in the setting of dropping H/H and plt count Subjective Date of service: 10/09/16 Principal diagnosis: Acute resp failure on MVS; S/P Acute CVA; Acute Encephalopathy; JUANITA Interval history: No interval changes cardiac aquino SR on tele Objective Vital Signs Temp Pulse Pulse Pulse Pulse Resp Resp 10/09/16 09:19 86 10/09/16 08:55 10/09/16 08:00 98.2 F 93 H 93 H 28 H 10/09/16 07:52 75 18 10/09/16 07:30 86 10/09/16 07:00 71 10/09/16 06:30 79 10/09/16 06:00 80 10/09/16 05:30 78 10/09/16 05:00 79 27 H 10/09/16 04:30 80 10/09/16 04:00 97 H 10/09/16 03:58 90 10/09/16 03:30 82 10/09/16 03:00 83 10/09/16 02:30 85 10/09/16 02:00 89 10/09/16 01:30 82 10/09/16 01:00 100 H 34 H 10/09/16 00:30 82 24 10/09/16 00:00 87 F L 87 27 H 10/08/16 23:58 83 10/08/16 23:30 84 24 10/08/16 23:29 98.6 F 10/08/16 23:00 81 23 10/08/16 22:30 98 H 32 H 10/08/16 22:00 81 24 10/08/16 21:30 92 H 32 H 10/08/16 21:00 93 H 32 H 10/08/16 20:30 91 H 30 H 10/08/16 20:00 99.6 F 89 98 H 96 H 95 H 31 H 30 H 10/08/16 19:39 88 10/08/16 19:30 89 26 H 10/08/16 19:00 89 29 H 10/08/16 18:32 90 34 H 10/08/16 18:30 88 24 10/08/16 18:00 91 H 31 H 10/08/16 17:30 86 33 H 10/08/16 17:00 89 35 H 10/08/16 16:34 89 10/08/16 16:30 90 32 H 10/08/16 16:00 98.2 F 89 33 H 10/08/16 15:30 86 33 H 10/08/16 15:00 84 27 H 10/08/16 14:30 85 28 H 10/08/16 14:00 91 H 15 10/08/16 13:30 90 33 H 10/08/16 13:00 90 39 H 10/08/16 12:30 93 H 14 10/08/16 12:15 91 H 37 H 10/08/16 12:00 98.5 F 91 H 37 H 10/08/16 11:30 93 H 35 H 10/08/16 11:00 88 35 H 10/08/16 10:30 90 36 H 10/08/16 10:22 93 H 38 H 10/08/16 10:15 10/08/16 10:00 87 31 H 10/08/16 09:30 86 30 H BP Pulse Ox Pulse Ox 10/09/16 09:19 191/79 10/09/16 08:55 100 10/09/16 08:00 170/80 100 10/09/16 07:52 107/48 100 10/09/16 07:30 107/48 100 10/09/16 07:00 107/48 100 10/09/16 06:30 122/57 100 10/09/16 06:00 122/57 100 10/09/16 05:30 202/93 100 10/09/16 05:00 124/58 100 10/09/16 04:30 159/74 100 10/09/16 04:00 202/93 100 100 10/09/16 03:58 159/74 100 10/09/16 03:30 178/101 100 10/09/16 03:00 159/74 100 10/09/16 02:30 179/98 96 10/09/16 02:00 178/101 100 10/09/16 01:30 179/98 100 10/09/16 01:00 179/98 100 10/09/16 00:30 128/66 100 10/09/16 00:00 128/66 100 10/08/16 23:58 116/54 100 10/08/16 23:30 116/54 100 10/08/16 23:29 10/08/16 23:00 116/54 100 10/08/16 22:30 114/58 100 10/08/16 22:00 114/58 100 10/08/16 21:30 132/77 100 10/08/16 21:00 120/84 100 10/08/16 20:30 132/77 100 10/08/16 20:00 132/77 100 10/08/16 19:39 141/85 100 17 19:30 141/85 100 10/08/16 19:00 141/85 100 10/08/16 18:32 142/80 100 10/08/16 18:30 142/80 100 10/08/16 18:00 142/80 100 100 10/08/16 17:30 157/93 97 10/08/16 17:00 157/93 100 10/08/16 16:34 164/89 100 10/08/16 16:30 164/89 100 10/08/16 16:00 164/89 100 17 15:30 136/81 99 10/08/16 15:00 136/81 100 10/08/16 14:30 144/81 100 10/08/16 14:00 223/107 100 10/08/16 13:30 190/94 100 10/08/16 13:00 190/94 99 10/08/16 12:30 187/90 100 10/08/16 12:15 187/90 100 10/08/16 12:00 187/90 100 10/08/16 11:30 156/72 100 10/08/16 11:00 156/72 100 10/08/16 10:30 134/86 100 10/08/16 10:22 134/86 100 10/08/16 10:15 100 10/08/16 10:00 134/86 100 10/08/16 09:30 148/82 100 - Physical Examination General: Other (intubated via trach) Neck: Positive: neck supple Cardiac: Positive: Reg Rate and Rhythm Lungs: Positive: Ventilated Respirations Abdomen: Positive: Soft, Active Bowel Sounds Extremities: Absent: edema - Labs and Meds Coagulation 10/08/16 10/09/16 Range/Units 19:30 03:45 PT 18.0 H 19.0 H (12.2-14.9) Sec. INR 1.41 H 1.51 H (0.87-1.13) APTT 33.0 (24.2-36.6) Sec. CBC 10/08/16 10/09/16 Range/Units 19:30 03:45 WBC 12.6 H (4.5-11.0) K/mm3 RBC 2.36 L (3.65-5.03) M/mm3 Hgb 7.1 L D 6.7 L (10.1-14.3) gm/dl Hct 22.4 L D 21.1 L (30.3-42.9) % Plt Count 75 L (140-440) K/mm3 Comprehensive Metabolic Panel 10/09/16 Range/Units 03:45 Sodium 135 L (137-145) mmol/L Potassium 4.0 D (3.6-5.0) mmol/L Chloride 98.6 (98-107) mmol/L Carbon Dioxide 17 L (22-30) mmol/L BUN 81 H (7-17) mg/dL Creatinine 3.2 H (0.7-1.2) mg/dL Glucose 109 H (65-100) mg/dL Calcium 7.4 L (8.4-10.2) mg/dL - Imaging and Cardiology EKG: image reviewed - Allied health notes Allied health notes reviewed: RT
--- NOTE | 2016-10-09 11:06 | Progress Note ---
Subjective Principal diagnosis: Acute resp failure on MVS; S/P Acute CVA; Acute Encephalopathy; JUANITA Interval history: Patient was evaluated today for follow-up on multiple renal related issues No acute distress patient remains anuric/she is also unresponsive currently on ventilator Events of 24 hours were noted Vital labs intake and output medications were reviewed Current medications: Reviewed Social history:Reviewed Family history: Reviewed HEENT: No uremic order oral mucosa moist Neck: Supple without any thyromegaly mass or JVD Chest: Clear to auscultation occasional basilar crackles posteriorly Heart: Regular rate and rhythm S1 and S2 heard no S3-S4 Abdomen: Soft nontender no voluntary guarding rigidity or rebound Extremity: edema generalized 1+ Psychiatry: No agitation and aggression noted Assessment and plan Acute on chronic renal failure; continue to monitor renal function for now, avoid any nephrotoxic medication would like to order a renal ultrasonogram to make sure she is not obstructed/ urine output has been very poor Patient likely will require renal replacement therapy in the morning if she remains anuric She does appear to have significant third spacing of fluid ultrafiltration as tolerated Does appear to have renovascular hypertension Admitted with acute CVA, continues with supportive care/andrez encephalopathic ultrasonogram showed evidence of chronic kidney disease Hypokalemia to monitor and follow Altered mental status: Multifactorial Continue with supportive care/prognosis very poor Objective - Vital Signs Vital signs: Vital Signs - 12hr 10/08/16 10/08/16 10/08/16 23:29 23:30 23:58 Temperature 98.6 F Pulse Rate 84 83 Pulse Rate [ From Monitor] Respiratory 24 Rate Respiratory Rate [ Generalized] Blood Pressure 116/54 116/54 O2 Sat by Pulse 100 100 Oximetry O2 Sat by Pulse Oximetry [ Assessment] 10/09/16 10/09/16 10/09/16 00:00 00:30 01:00 Temperature 87 F L Pulse Rate 87 82 100 H Pulse Rate [ From Monitor] Respiratory 27 H 24 34 H Rate Respiratory Rate [ Generalized] Blood Pressure 128/66 128/66 179/98 O2 Sat by Pulse 100 100 100 Oximetry O2 Sat by Pulse Oximetry [ Assessment] 10/09/16 10/09/16 10/09/16 01:30 02:00 02:30 Temperature Pulse Rate 82 89 85 Pulse Rate [ From Monitor] Respiratory Rate Respiratory Rate [ Generalized] Blood Pressure 179/98 178/101 179/98 O2 Sat by Pulse 100 100 96 Oximetry O2 Sat by Pulse Oximetry [ Assessment] 10/09/16 10/09/16 10/09/16 03:00 03:30 03:58 Temperature Pulse Rate 83 82 90 Pulse Rate [ From Monitor] Respiratory Rate Respiratory Rate [ Generalized] Blood Pressure 159/74 178/101 159/74 O2 Sat by Pulse 100 100 100 Oximetry O2 Sat by Pulse Oximetry [ Assessment] 10/09/16 10/09/16 10/09/16 04:00 04:30 05:00 Temperature Pulse Rate 97 H 80 79 Pulse Rate [ From Monitor] Respiratory Rate Respiratory 27 H Rate [ Generalized] Blood Pressure 202/93 159/74 124/58 O2 Sat by Pulse 100 100 100 Oximetry O2 Sat by Pulse 100 Oximetry [ Assessment] 10/09/16 10/09/16 10/09/16 05:30 06:00 06:30 Temperature Pulse Rate 78 80 79 Pulse Rate [ From Monitor] Respiratory Rate Respiratory Rate [ Generalized] Blood Pressure 202/93 122/57 122/57 O2 Sat by Pulse 100 100 100 Oximetry O2 Sat by Pulse Oximetry [ Assessment] 10/09/16 10/09/16 10/09/16 07:00 07:30 07:52 Temperature Pulse Rate 71 86 75 Pulse Rate [ From Monitor] Respiratory 18 Rate Respiratory Rate [ Generalized] Blood Pressure 107/48 107/48 107/48 O2 Sat by Pulse 100 100 100 Oximetry O2 Sat by Pulse Oximetry [ Assessment] 10/09/16 10/09/16 10/09/16 08:00 08:30 08:55 Temperature 98.2 F Pulse Rate 93 H 78 Pulse Rate [ 93 H From Monitor] Respiratory 28 H Rate Respiratory Rate [ Generalized] Blood Pressure 170/80 170/80 O2 Sat by Pulse 100 100 Oximetry O2 Sat by Pulse 100 Oximetry [ Assessment] 10/09/16 10/09/16 10/09/16 09:00 09:19 09:31 Temperature Pulse Rate 94 H 86 75 Pulse Rate [ From Monitor] Respiratory Rate Respiratory Rate [ Generalized] Blood Pressure 191/79 191/79 170/80 O2 Sat by Pulse 100 100 Oximetry O2 Sat by Pulse Oximetry [ Assessment] 10/09/16 10:00 Temperature Pulse Rate 78 Pulse Rate [ From Monitor] Respiratory Rate Respiratory Rate [ Generalized] Blood Pressure 113/49 O2 Sat by Pulse 100 Oximetry O2 Sat by Pulse Oximetry [ Assessment] - Lab 10/09/16 16:20 10/09/16 03:45 Most recent lab results Calcium 7.4 mg/dL (8.4-10.2) L 10/09/16 03:45 Phosphorus 4.60 mg/dL (2.5-4.5) H D 10/09/16 03:45 Magnesium 2.20 mg/dL (1.7-2.3) 10/09/16 03:45 Urine Creatinine 54.8 mg/dL (0.1-20.0) H 09/21/16 12:00 Urine Sodium 36 mEq/L 09/16/16 19:19 Urine Total Protein 16 mg/dL (5-11.8) H 09/16/16 19:19
[2016-10-09] MEDS: fentaNYL DRIP Premix 2,000 MCG/100 ML BAG IV SCH (12:24)
--- NOTE | 2016-10-09 13:48 | Progress Note ---
Assessment and Plan Assessment: 1) Recurrent Sepsis: Improving, fever and leukocytosis resolved today. -Current sepsis etiology - peritonitis from gastric perforation +/- UTI. -Initial sepsis etiology - presumed aspiration pneumonia, and another septic episode on 09/23 from Candidemia. 2) Peritonitis: from gastric perforation from dislodged PEG with significant ascites -S/P exlap, repair of gastric perforation with wedge gastrectomy, abdominal washout, drain placement on 10/05. 3) Candidemia: -Blood cultures positive for Silvia albicans on 09/23 -Blood cultures positive on 09/25 -Blood cutlures negative on 09/30 -PICC line changed on 10/03 -Source ? gastric perf (PEG placed on 09/20) +/- TPN +/- central lines -TTE 10/07 no vegetations 4) CA-UTI 5) Diarrhea - ? etiology ? antibiotic-induced, not better 6) Initial presumed aspiration pneumonia 7) Presumed UTI: urine cx 09/23 multiple species 8) Respiratory failure s/p trach 9) Recent CVA-left MCA CVA 10) Uncontrolled HTN 11) Acute on CKD 12) Extensive back skin peeling ? burn from gastric secretions. Doubt allergic reaction Plan: -f/u procalcitonin, C-reactive protein (CRP) -continue zosyn to cover peritonitis and micafungin to cover Silvia albicans -ask cards if amiodarone can be exchanged to another drug so fluconazole can be started. Silvia albicans is fully sensitive to fluconazole. -monitor diarrhea, consider adding welchol Thank you Dr Sari Brown for your consultation, will follow up with you. Pauline Carias MD Infectious Diseases Specialist [facility] ([facility] M [phone] O [phone] Subjective Date of service: 10/09/16 Principal diagnosis: Acute resp failure on MVS; S/P Acute CVA; Acute Encephalopathy; JUANITA Interval history: Remains somnolent, open eyes spontaneously, not following commands, on the vent via trach, no pressors. No fever last 24h. +oliguric. + diarrhea via rectal tube with maroon clots per NS. Microbiology: Blood cultures: 09/13 neg 09/23 Silvia albicans 09/25 Silvia / neg 10/07 NGTD Urine cultures: 09/10 neg 09/13 neg 09/23 10-100K mixed species 10/07 pending Respiratory cultures: 09/07 neg 09/13 neg 09/23 neg Wound cultures: Stool cultures: Current Antimicrobials: zosyn 10/07 Micafungin 09/27 Previous Antimicrobials: Zosyn Vancomycin PO 10/01 Metronidazole 09/25 Objective - Exam Narrative Exam: General appearance: somnolent non verbal, on the vent via trach no following commands Eyes: anicteric sclera, moist conjunctivae; PERRLA HENT: Atraumatic; oropharynx limited; Normal external ears. +NGT with greenish secretion Neck: +trach in place; supple, no thyromegaly or lymphadenopathy Lungs: coarse BS bilateral CV: tachycardic Abdomen: Soft, non-tender, +drain with purulent drainage, + diarrhea via rectal tube. +old PEG site no drainage. Extremities: +peripheral edema no extremity lymphadenopathy Skin: Julian sub mammary ulcers, extensive skin peeling on back Psych: Anxious. Neuro: somnolent non verbal on the vent. Lines: left arm PICC placed on 10/03 - Constitutional Vitals: Vital Signs Temp Pulse Resp BP Pulse Ox 97.6 F 92 H 21 118/59 100 10/09/16 12:00 10/09/16 12:31 10/09/16 11:50 10/09/16 12:31 10/09/16 12:31 Temperature -Last 24 Hours Temperature 97.6 F Temperature 98.2 F Temperature 87 F Temperature 98.6 F Temperature 99.6 F Temperature 98.2 F Temperature 98.2 F - Labs CBC & Chem 7: 10/09/16 03:45 10/09/16 03:45 Labs: Abnormal lab results 09/25/16 10/08/16 10/08/16 Range/Units 10:30 17:07 19:30 WBC (4.5-11.0) K/mm3 RBC (3.65-5.03) M/mm3 Hgb 7.1 L D (10.1-14.3) gm/dl Hct 22.4 L D (30.3-42.9) % RDW (13.2-15.2) % Plt Count (140-440) K/mm3 Monocytes % (Manual) (0.0-7.3) % Nucleated RBC % (0.0-0.9) % Monocytes # (Manual) (0.0-0.8) K/mm3 PT (12.2-14.9) Sec. INR (0.87-1.13) Sodium (137-145) mmol/L Carbon Dioxide (22-30) mmol/L BUN (7-17) mg/dL Creatinine (0.7-1.2) mg/dL Glucose (65-100) mg/dL POC Glucose 145 H (70-105) Calcium (8.4-10.2) mg/dL Phosphorus (2.5-4.5) mg/dL Crossmatch See Detail 10/08/16 10/09/16 10/09/16 Range/Units 19:30 03:45 03:45 WBC 12.6 H (4.5-11.0) K/mm3 RBC 2.36 L (3.65-5.03) M/mm3 Hgb 6.7 L (10.1-14.3) gm/dl Hct 21.1 L (30.3-42.9) % RDW 19.5 H (13.2-15.2) % Plt Count 75 L (140-440) K/mm3 Monocytes % (Manual) 10.0 H (0.0-7.3) % Nucleated RBC % 3.0 H (0.0-0.9) % Monocytes # (Manual) 1.3 H (0.0-0.8) K/mm3 PT 18.0 H (12.2-14.9) Sec. INR 1.41 H (0.87-1.13) Sodium 135 L (137-145) mmol/L Carbon Dioxide 17 L (22-30) mmol/L BUN 81 H (7-17) mg/dL Creatinine 3.2 H (0.7-1.2) mg/dL Glucose 109 H (65-100) mg/dL POC Glucose (70-105) Calcium 7.4 L (8.4-10.2) mg/dL Phosphorus 4.60 H D (2.5-4.5) mg/dL Crossmatch 10/09/16 10/09/16 10/09/16 Range/Units 03:45 05:14 07:20 WBC (4.5-11.0) K/mm3 RBC (3.65-5.03) M/mm3 Hgb (10.1-14.3) gm/dl Hct (30.3-42.9) % RDW (13.2-15.2) % Plt Count (140-440) K/mm3 Monocytes % (Manual) (0.0-7.3) % Nucleated RBC % (0.0-0.9) % Monocytes # (Manual) (0.0-0.8) K/mm3 PT 19.0 H (12.2-14.9) Sec. INR 1.51 H (0.87-1.13) Sodium (137-145) mmol/L Carbon Dioxide (22-30) mmol/L BUN (7-17) mg/dL Creatinine (0.7-1.2) mg/dL Glucose (65-100) mg/dL POC Glucose 151 H (70-105) Calcium (8.4-10.2) mg/dL Phosphorus (2.5-4.5) mg/dL Crossmatch See Detail 10/09/16 Range/Units 11:46 WBC (4.5-11.0) K/mm3 RBC (3.65-5.03) M/mm3 Hgb (10.1-14.3) gm/dl Hct (30.3-42.9) % RDW (13.2-15.2) % Plt Count (140-440) K/mm3 Monocytes % (Manual) (0.0-7.3) % Nucleated RBC % (0.0-0.9) % Monocytes # (Manual) (0.0-0.8) K/mm3 PT (12.2-14.9) Sec. INR (0.87-1.13) Sodium (137-145) mmol/L Carbon Dioxide (22-30) mmol/L BUN (7-17) mg/dL Creatinine (0.7-1.2) mg/dL Glucose (65-100) mg/dL POC Glucose 133 H (70-105) Calcium (8.4-10.2) mg/dL Phosphorus (2.5-4.5) mg/dL Crossmatch
--- NOTE | 2016-10-09 14:09 | Progress Note ---
Assessment and Plan (1) Acute respiratory failure with hypoxia Current Visit: Yes Status: Acute Plan to address problem: - continue aspiration precautions / address VAP bundles - continue to wean oxygen for MAP > 94% - continue bronchodilators and pulmonary toilet - s/p tracheostomy - continue daily PSV trials as tolerated (2) Acute CVA (cerebrovascular accident) Current Visit: Yes Status: Acute Plan to address problem: - out of tpA window (initially stopped due to uncontrolled HTN) - Left MCA teritory stroke with some midline shift on last CT - seen by neurology and prognosis for recovery of mental status guarded to poor - optimizing secondary prevention modalities now (BP, lipid anti-platelet therapy) - off systemic steroids now (started earlier for edema) (3) Hypertensive emergency Current Visit: Yes Status: Acute Plan to address problem: - stopped all antihypertensives while septic - following cllinically (4) Obesity (BMI 35.0-39.9 without comorbidity) Current Visit: Yes Status: Chronic Plan to address problem: - nutrition consult placed for enteral formulation - follow clinically (5) Type 2 diabetes mellitus Current Visit: Yes Status: Chronic Qualifiers: Diabetes mellitus complication status: D Diabetes mellitus complication detail: D Diabetic retinopathy severity: D Proliferative retinopathy type: P Diabetes mellitus macular edema: D Diabetes mellitus clinical documentation consultant insulin use : D Laterality: L Chronic kidney disease stage: C Plan to address problem: - continue SSI - discontinued lantus re: hypoglycemia (6) Leukocytosis (leucocytosis) Current Visit: Yes Status: Acute Qualifiers: Leukocytosis type: leukemoid reaction Qualified Code(s): D72.823 - Leukemoid reaction Plan to address problem: - continue cancidas and de-escalate per ID recs - clinically improved (7) Agitation Current Visit: Yes Status: Acute Plan to address problem: - prn sedation / analgesia - tapered off seroquel for now (8) Atrial fibrillation Current Visit: Yes Status: Acute Qualifiers: Atrial fibrillation type: A Plan to address problem: - failed cardioversion earlier - cardiology evaluation ongoing - back in A-fib - continue amiodarone drip (change to p.o. once tolerating enterally) (9) JUANITA (acute kidney injury) Current Visit: Yes Status: Acute Plan to address problem: - on Dialysis now - continue HD/UF per nephrology recommendations - none today but remains oliguric (10) Pyrexia of unknown origin Current Visit: Yes Status: Acute Plan to address problem: - dopplers negative for DVT - continue to treat with AB;'s empirically - continue micafungin (11) Severe sepsis Current Visit: Yes Status: Acute Plan to address problem: - resume vasopressors for MAP < 60mmHg not responsive to volume - all central vascular access has been discontinued after fungemia reported - care plan formulated with ID input - BC's from 09/27/16 growing in 1of 2 but still no ID yet - continue micafungin per ID recs and stop date - wound care nurse also managing back wounds - clinically stable and hemodynamically improved (12) Emesis Current Visit: Yes Status: Acute Qualifiers: Vomiting type: V Vomiting Intractability: V Nausea presence: N Plan to address problem: - s/p surgical repair of gastric perforation - continue TPN for now - follow surgery recommendations (13) Discharge planning issues Current Visit: Yes Status: Acute Plan to address problem: - she remains critically ill on life sustaining interventions including MVS and at risk for further acute deterioration including .....30' CCT ....clinical documentation consultant prognosis is guarded Subjective Date of service: 10/09/16 Principal diagnosis: Acute resp failure on MVS; S/P Acute CVA; Acute Encephalopathy; JUANITA Interval history: Seen and examined at bedside; 24 hour events reviewed; nursing and respiratory care staff consulted; no adverse overnight events reported to me; remaisn on MVS ; remains on TPN; no hematemesis; tenuously tolerating weaning and AMS is persistent Objective Vital Signs - 12hr 10/09/16 10/09/16 10/09/16 02:30 03:00 03:30 Temperature Pulse Rate 85 83 82 Pulse Rate [ From Monitor] Respiratory Rate Respiratory Rate [ Generalized] Blood Pressure 179/98 159/74 178/101 O2 Sat by Pulse 96 100 100 Oximetry O2 Sat by Pulse Oximetry [ Assessment] 10/09/16 10/09/16 10/09/16 03:58 04:00 04:30 Temperature Pulse Rate 90 97 H 80 Pulse Rate [ From Monitor] Respiratory Rate Respiratory Rate [ Generalized] Blood Pressure 159/74 202/93 159/74 O2 Sat by Pulse 100 100 100 Oximetry O2 Sat by Pulse 100 Oximetry [ Assessment] 10/09/16 10/09/16 10/09/16 05:00 05:30 06:00 Temperature Pulse Rate 79 78 80 Pulse Rate [ From Monitor] Respiratory Rate Respiratory 27 H Rate [ Generalized] Blood Pressure 124/58 202/93 122/57 O2 Sat by Pulse 100 100 100 Oximetry O2 Sat by Pulse Oximetry [ Assessment] 10/09/16 10/09/16 10/09/16 06:30 07:00 07:30 Temperature Pulse Rate 79 71 86 Pulse Rate [ From Monitor] Respiratory Rate Respiratory Rate [ Generalized] Blood Pressure 122/57 107/48 107/48 O2 Sat by Pulse 100 100 100 Oximetry O2 Sat by Pulse Oximetry [ Assessment] 10/09/16 10/09/16 10/09/16 07:52 08:00 08:30 Temperature 98.2 F Pulse Rate 75 93 H 78 Pulse Rate [ 93 H From Monitor] Respiratory 18 28 H Rate Respiratory Rate [ Generalized] Blood Pressure 107/48 170/80 170/80 O2 Sat by Pulse 100 100 100 Oximetry O2 Sat by Pulse Oximetry [ Assessment] 10/09/16 10/09/16 10/09/16 08:55 09:00 09:19 Temperature Pulse Rate 94 H 86 Pulse Rate [ From Monitor] Respiratory Rate Respiratory Rate [ Generalized] Blood Pressure 191/79 191/79 O2 Sat by Pulse 100 Oximetry O2 Sat by Pulse 100 Oximetry [ Assessment] 10/09/16 10/09/16 10/09/16 09:31 10:00 10:31 Temperature Pulse Rate 75 78 74 Pulse Rate [ From Monitor] Respiratory Rate Respiratory Rate [ Generalized] Blood Pressure 170/80 113/49 172/79 O2 Sat by Pulse 100 100 100 Oximetry O2 Sat by Pulse Oximetry [ Assessment] 10/09/16 10/09/16 10/09/16 11:00 11:31 11:50 Temperature Pulse Rate 81 90 88 Pulse Rate [ From Monitor] Respiratory 21 Rate Respiratory Rate [ Generalized] Blood Pressure 121/61 121/61 193/96 O2 Sat by Pulse 100 100 100 Oximetry O2 Sat by Pulse Oximetry [ Assessment] 10/09/16 10/09/16 10/09/16 12:00 12:31 13:00 Temperature 97.6 F Pulse Rate 72 92 H 73 Pulse Rate [ From Monitor] Respiratory Rate Respiratory Rate [ Generalized] Blood Pressure 118/59 118/59 117/57 O2 Sat by Pulse 100 100 100 Oximetry O2 Sat by Pulse Oximetry [ Assessment] 10/09/16 13:31 Temperature Pulse Rate 93 H Pulse Rate [ From Monitor] Respiratory Rate Respiratory Rate [ Generalized] Blood Pressure 117/57 O2 Sat by Pulse 100 Oximetry O2 Sat by Pulse Oximetry [ Assessment] Constitutional: no acute distress, other (eyes open; not tracking movements) Eyes: non-icteric, other (tracheostomy tube in midline of neck) ENT: oropharynx moist Neck: supple, no lymphadenopathy Effort: mildly labored Ascultation: Bilateral: rales Cardiovascular: regular rate and rhythm Gastrointestinal: hypoactive bowel sounds, soft, non-tender, non-distended, other (hema drain in place) Integumentary: other (erythema to skin of back with some healing areas; no obvious TEN's features) Extremities: no cyanosis, no edema, pulses normal, no ischemia or petechiae Neurologic: pupils equal and round, other (sedated) Psychiatric: other (unable to assess) CBC and BMP: 10/17/16 04:24 10/17/16 04:24 ABG, PT/INR, D-dimer: ABG POC ABG pH 7.437 (7.35-7.45) 10/08/16 12:49 POC ABG pCO2 28.2 (35-45) L 10/08/16 12:49 POC ABG pO2 111 (80-105) H 10/08/16 12:49 POC ABG HCO3 19.0 10/08/16 12:49 POC ABG Total CO2 20 10/08/16 12:49 POC ABG O2 Sat 99 10/08/16 12:49 PT/INR, D-dimer PT 19.0 Sec. (12.2-14.9) H 10/09/16 03:45 INR 1.51 (0.87-1.13) H 10/09/16 03:45 Abnormal lab findings: Abnormal Labs 09/03/16 09/03/16 09/03/16 12:12 15: 16:20 WBC RBC Hgb Hct MCV MCH MCHC RDW Plt Count Lymph % (Auto) [place] % (Auto) Lymph # [place] # Seg Neutrophils % Seg Neuts % (Manual) Lymphocytes % (Manual) Monocytes % (Manual) Eosinophils % (Manual) Basophils % (Manual) Nucleated RBC % Seg Neutrophils # Seg Neutrophils # Man Lymphocytes # (Manual) Monocytes # (Manual) Eosinophils # (Manual) PT INR Fibrinogen dRVVT Confirm Interp Factor V Activity POC ABG pH 7.452 H POC ABG pCO2 POC ABG pO2 Sodium Potassium Chloride Carbon Dioxide BUN Creatinine Glucose POC Glucose 178 H Lactic Acid Calcium Phosphorus 2.20 L Magnesium 1.60 L Direct Bilirubin ALT Alkaline Phosphatase Troponin T C-Reactive Protein Total Protein Albumin Triglycerides Cholesterol LDL Cholesterol Direct HDL Cholesterol Urine WBC (Auto) Urine Creatinine Urine Total Protein Vancomycin Trough Rheumatoid Factor Complement C4 Crossmatch 09/03/16 09/03/16 09/03/16 17:57 17:58 23:50 WBC RBC Hgb Hct MCV MCH MCHC RDW Plt Count Lymph % (Auto) [place] % (Auto) Lymph # [place] # Seg Neutrophils % Seg Neuts % (Manual) Lymphocytes % (Manual) Monocytes % (Manual) Eosinophils % (Manual) Basophils % (Manual) Nucleated RBC % Seg Neutrophils # Seg Neutrophils # Man Lymphocytes # (Manual) Monocytes # (Manual) Eosinophils # (Manual) PT INR Fibrinogen dRVVT Confirm Interp Factor V Activity POC ABG pH POC ABG pCO2 POC ABG pO2 Sodium Potassium Chloride Carbon Dioxide BUN Creatinine Glucose POC Glucose 162 H 145 H Lactic Acid Calcium Phosphorus 2.30 L Magnesium Direct Bilirubin ALT Alkaline Phosphatase Troponin T C-Reactive Protein Total Protein Albumin Triglycerides Cholesterol LDL Cholesterol Direct HDL Cholesterol Urine WBC (Auto) Urine Creatinine Urine Total Protein Vancomycin Trough Rheumatoid Factor Complement C4 Crossmatch 09/04/16 09/04/16 09/04/16 03:31 03:31 05:42 WBC RBC Hgb 9.7 L D Hct MCV 72 L MCH 23 L MCHC RDW 17.5 H Plt Count Lymph % (Auto) 11.1 L [place] % (Auto) Lymph # [place] # Seg Neutrophils % 84.3 H Seg Neuts % (Manual) Lymphocytes % (Manual) Monocytes % (Manual) Eosinophils % (Manual) Basophils % (Manual) Nucleated RBC % Seg Neutrophils # 8.9 H Seg Neutrophils # Man Lymphocytes # (Manual) Monocytes # (Manual) Eosinophils # (Manual) PT INR Fibrinogen dRVVT Confirm Interp Factor V Activity POC ABG pH POC ABG pCO2 POC ABG pO2 Sodium 135 L Potassium 2.9 L* Chloride 97.2 L Carbon Dioxide 19 L BUN Creatinine 1.7 H Glucose 170 H POC Glucose 152 H Lactic Acid Calcium Phosphorus Magnesium Direct Bilirubin ALT Alkaline Phosphatase Troponin T C-Reactive Protein Total Protein Albumin Triglycerides 160 H Cholesterol LDL Cholesterol Direct HDL Cholesterol 31 L Urine WBC (Auto) Urine Creatinine Urine Total Protein Vancomycin Trough Rheumatoid Factor Complement C4 Crossmatch 09/04/16 09/04/16 09/04/16 11:34 17:46 23:29 WBC RBC Hgb Hct MCV MCH MCHC RDW Plt Count Lymph % (Auto) [place] % (Auto) Lymph # [place] # Seg Neutrophils % Seg Neuts % (Manual) Lymphocytes % (Manual) Monocytes % (Manual) Eosinophils % (Manual) Basophils % (Manual) Nucleated RBC % Seg Neutrophils # Seg Neutrophils # Man Lymphocytes # (Manual) Monocytes # (Manual) Eosinophils # (Manual) PT INR Fibrinogen dRVVT Confirm Interp Factor V Activity POC ABG pH POC ABG pCO2 POC ABG pO2 Sodium Potassium Chloride Carbon Dioxide BUN Creatinine Glucose POC Glucose 165 H 210 H 139 H Lactic Acid Calcium Phosphorus Magnesium Direct Bilirubin ALT Alkaline Phosphatase Troponin T C-Reactive Protein Total Protein Albumin Triglycerides Cholesterol LDL Cholesterol Direct HDL Cholesterol Urine WBC (Auto) Urine Creatinine Urine Total Protein Vancomycin Trough Rheumatoid Factor Complement C4 Crossmatch 09/05/16 09/05/16 09/05/16 04:05 04:05 05:38 WBC RBC Hgb Hct MCV 76 L D MCH 23 L MCHC RDW 17.8 H Plt Count Lymph % (Auto) [place] % (Auto) Lymph # [place] # Seg Neutrophils % Seg Neuts % (Manual) Lymphocytes % (Manual) Monocytes % (Manual) Eosinophils % (Manual) Basophils % (Manual) Nucleated RBC % Seg Neutrophils # Seg Neutrophils # Man Lymphocytes # (Manual) Monocytes # (Manual) Eosinophils # (Manual) PT INR Fibrinogen dRVVT Confirm Interp Factor V Activity POC ABG pH POC ABG pCO2 POC ABG pO2 Sodium 134 L Potassium Chloride Carbon Dioxide 18 L BUN Creatinine 1.8 H Glucose 192 H POC Glucose 175 H Lactic Acid Calcium Phosphorus Magnesium Direct Bilirubin ALT Alkaline Phosphatase Troponin T C-Reactive Protein Total Protein Albumin Triglycerides Cholesterol LDL Cholesterol Direct HDL Cholesterol Urine WBC (Auto) Urine Creatinine Urine Total Protein Vancomycin Trough Rheumatoid Factor Complement C4 Crossmatch 09/05/16 09/05/16 09/05/16 11:38 17:48 23:22 WBC RBC Hgb Hct MCV MCH MCHC RDW Plt Count Lymph % (Auto) [place] % (Auto) Lymph # [place] # Seg Neutrophils % Seg Neuts % (Manual) Lymphocytes % (Manual) Monocytes % (Manual) Eosinophils % (Manual) Basophils % (Manual) Nucleated RBC % Seg Neutrophils # Seg Neutrophils # Man Lymphocytes # (Manual) Monocytes # (Manual) Eosinophils # (Manual) PT INR Fibrinogen dRVVT Confirm Interp Factor V Activity POC ABG pH POC ABG pCO2 POC ABG pO2 Sodium Potassium Chloride Carbon Dioxide BUN Creatinine Glucose POC Glucose 164 H 186 H 195 H Lactic Acid Calcium Phosphorus Magnesium Direct Bilirubin ALT Alkaline Phosphatase Troponin T C-Reactive Protein Total Protein Albumin Triglycerides Cholesterol LDL Cholesterol Direct HDL Cholesterol Urine WBC (Auto) Urine Creatinine Urine Total Protein Vancomycin Trough Rheumatoid Factor Complement C4 Crossmatch 09/06/16 09/06/16 09/06/16 04:12 05:59 07:32 WBC RBC Hgb Hct MCV MCH MCHC RDW Plt Count Lymph % (Auto) [place] % (Auto) Lymph # [place] # Seg Neutrophils % Seg Neuts % (Manual) Lymphocytes % (Manual) Monocytes % (Manual) Eosinophils % (Manual) Basophils % (Manual) Nucleated RBC % Seg Neutrophils # Seg Neutrophils # Man Lymphocytes # (Manual) Monocytes # (Manual) Eosinophils # (Manual) PT INR Fibrinogen dRVVT Confirm Interp Factor V Activity POC ABG pH 7.514 H POC ABG pCO2 29.1 L POC ABG pO2 72 L Sodium 133 L Potassium 3.4 L Chloride 94.9 L Carbon Dioxide 19 L BUN 30 H Creatinine 2.1 H Glucose 139 H POC Glucose 146 H Lactic Acid Calcium Phosphorus Magnesium Direct Bilirubin ALT Alkaline Phosphatase Troponin T C-Reactive Protein Total Protein Albumin Triglycerides Cholesterol LDL Cholesterol Direct HDL Cholesterol Urine WBC (Auto) Urine Creatinine Urine Total Protein Vancomycin Trough Rheumatoid Factor Complement C4 Crossmatch 09/06/16 09/06/16 09/06/16 11:57 17:58 19:02 WBC RBC Hgb Hct MCV MCH MCHC RDW Plt Count Lymph % (Auto) [place] % (Auto) Lymph # [place] # Seg Neutrophils % Seg Neuts % (Manual) Lymphocytes % (Manual) Monocytes % (Manual) Eosinophils % (Manual) Basophils % (Manual) Nucleated RBC % Seg Neutrophils # Seg Neutrophils # Man Lymphocytes # (Manual) Monocytes # (Manual) Eosinophils # (Manual) PT INR Fibrinogen dRVVT Confirm Interp Factor V Activity POC ABG pH 7.465 H POC ABG pCO2 32.0 L POC ABG pO2 Sodium Potassium Chloride Carbon Dioxide BUN Creatinine Glucose POC Glucose 165 H 160 H Lactic Acid Calcium Phosphorus Magnesium Direct Bilirubin ALT Alkaline Phosphatase Troponin T C-Reactive Protein Total Protein Albumin Triglycerides Cholesterol LDL Cholesterol Direct HDL Cholesterol Urine WBC (Auto) Urine Creatinine Urine Total Protein Vancomycin Trough Rheumatoid Factor Complement C4 Crossmatch 09/06/16 09/07/16 09/07/16 23:45 02:47 02:47 WBC RBC Hgb Hct MCV MCH MCHC RDW Plt Count Lymph % (Auto) [place] % (Auto) Lymph # [place] # Seg Neutrophils % Seg Neuts % (Manual) Lymphocytes % (Manual) Monocytes % (Manual) Eosinophils % (Manual) Basophils % (Manual) Nucleated RBC % Seg Neutrophils # Seg Neutrophils # Man Lymphocytes # (Manual) Monocytes # (Manual) Eosinophils # (Manual) PT INR Fibrinogen dRVVT Confirm Interp Factor V Activity POC ABG pH POC ABG pCO2 POC ABG pO2 Sodium Potassium Chloride Carbon Dioxide BUN Creatinine Glucose POC Glucose 204 H Lactic Acid Calcium Phosphorus Magnesium Direct Bilirubin ALT Alkaline Phosphatase Troponin T C-Reactive Protein Total Protein Albumin Triglycerides Cholesterol LDL Cholesterol Direct HDL Cholesterol Urine WBC (Auto) 68.0 H Urine Creatinine 106.1 H Urine Total Protein Vancomycin Trough Rheumatoid Factor Complement C4 Crossmatch 09/07/16 09/07/16 09/07/16 04:50 06:19 06:39 WBC RBC Hgb Hct MCV MCH MCHC RDW Plt Count Lymph % (Auto) [place] % (Auto) Lymph # [place] # Seg Neutrophils % Seg Neuts % (Manual) Lymphocytes % (Manual) Monocytes % (Manual) Eosinophils % (Manual) Basophils % (Manual) Nucleated RBC % Seg Neutrophils # Seg Neutrophils # Man Lymphocytes # (Manual) Monocytes # (Manual) Eosinophils # (Manual) PT INR Fibrinogen dRVVT Confirm Interp Factor V Activity POC ABG pH 7.457 H POC ABG pCO2 32.1 L POC ABG pO2 76 L Sodium 132 L Potassium Chloride 94.7 L Carbon Dioxide BUN 53 H Creatinine 2.9 H Glucose 151 H POC Glucose 149 H Lactic Acid Calcium Phosphorus Magnesium Direct Bilirubin ALT Alkaline Phosphatase Troponin T C-Reactive Protein Total Protein Albumin Triglycerides Cholesterol LDL Cholesterol Direct HDL Cholesterol Urine WBC (Auto) Urine Creatinine Urine Total Protein Vancomycin Trough Rheumatoid Factor Complement C4 Crossmatch 09/07/16 09/07/16 09/07/16 09:20 11:43 11:43 WBC 19.4 H RBC Hgb 8.3 L Hct 26.4 L D MCV 72 L D MCH 22 L MCHC RDW 17.9 H Plt Count Lymph % (Auto) 8.5 L [place] % (Auto) Lymph # [place] # 1.0 H Seg Neutrophils % 85.8 H Seg Neuts % (Manual) Lymphocytes % (Manual) Monocytes % (Manual) Eosinophils % (Manual) Basophils % (Manual) Nucleated RBC % Seg Neutrophils # 16.6 H Seg Neutrophils # Man Lymphocytes # (Manual) Monocytes # (Manual) Eosinophils # (Manual) PT INR Fibrinogen dRVVT Confirm Interp Factor V Activity POC ABG pH POC ABG pCO2 POC ABG pO2 Sodium 134 L Potassium Chloride 97.2 L Carbon Dioxide 20 L BUN 58 H Creatinine 2.9 H Glucose 147 H POC Glucose Lactic Acid Calcium Phosphorus 2.40 L Magnesium 2.40 H Direct Bilirubin ALT Alkaline Phosphatase Troponin T C-Reactive Protein Total Protein 5.8 L Albumin 2.2 L Triglycerides Cholesterol LDL Cholesterol Direct HDL Cholesterol Urine WBC (Auto) Urine Creatinine Urine Total Protein Vancomycin Trough Rheumatoid Factor Complement C4 58 H Crossmatch 09/07/16 09/07/16 09/07/16 11:50 16:00 17:31 WBC RBC Hgb Hct MCV MCH MCHC RDW Plt Count Lymph % (Auto) [place] % (Auto) Lymph # [place] # Seg Neutrophils % Seg Neuts % (Manual) Lymphocytes % (Manual) Monocytes % (Manual) Eosinophils % (Manual) Basophils % (Manual) Nucleated RBC % Seg Neutrophils # Seg Neutrophils # Man Lymphocytes # (Manual) Monocytes # (Manual) Eosinophils # (Manual) PT INR Fibrinogen dRVVT Confirm Interp Factor V Activity POC ABG pH POC ABG pCO2 POC ABG pO2 158 H Sodium Potassium Chloride Carbon Dioxide BUN Creatinine Glucose POC Glucose 175 H Lactic Acid Calcium Phosphorus Magnesium Direct Bilirubin ALT Alkaline Phosphatase Troponin T C-Reactive Protein Total Protein Albumin Triglycerides Cholesterol LDL Cholesterol Direct HDL Cholesterol Urine WBC (Auto) Urine Creatinine 66.3 H Urine Total Protein Vancomycin Trough Rheumatoid Factor Complement C4 Crossmatch 09/07/16 09/08/16 09/08/16 23:50 05:46 06:18 WBC 17.8 H RBC 3.58 L Hgb 8.1 L Hct 25.5 L MCV 71 L MCH 23 L MCHC RDW 18.4 H Plt Count Lymph % (Auto) [place] % (Auto) Lymph # [place] # Seg Neutrophils % Seg Neuts % (Manual) 92.0 H Lymphocytes % (Manual) 6.0 L Monocytes % (Manual) Eosinophils % (Manual) Basophils % (Manual) Nucleated RBC % Seg Neutrophils # Seg Neutrophils # Man 16.4 H Lymphocytes # (Manual) 1.1 L Monocytes # (Manual) Eosinophils # (Manual) PT INR Fibrinogen dRVVT Confirm Interp Factor V Activity POC ABG pH POC ABG pCO2 34.3 L POC ABG pO2 71 L Sodium Potassium Chloride Carbon Dioxide BUN Creatinine Glucose POC Glucose 216 H Lactic Acid Calcium Phosphorus Magnesium Direct Bilirubin ALT Alkaline Phosphatase Troponin T C-Reactive Protein Total Protein Albumin Triglycerides Cholesterol LDL Cholesterol Direct HDL Cholesterol Urine WBC (Auto) Urine Creatinine Urine Total Protein Vancomycin Trough Rheumatoid Factor Complement C4 Crossmatch 09/08/16 09/08/16 09/08/16 06:18 06:51 10:55 WBC RBC Hgb Hct MCV MCH MCHC RDW Plt Count Lymph % (Auto) [place] % (Auto) Lymph # [place] # Seg Neutrophils % Seg Neuts % (Manual) Lymphocytes % (Manual) Monocytes % (Manual) Eosinophils % (Manual) Basophils % (Manual) Nucleated RBC % Seg Neutrophils # Seg Neutrophils # Man Lymphocytes # (Manual) Monocytes # (Manual) Eosinophils # (Manual) PT INR Fibrinogen dRVVT Confirm Interp Factor V Activity POC ABG pH POC ABG pCO2 POC ABG pO2 Sodium 133 L Potassium Chloride 96.9 L Carbon Dioxide 20 L BUN 63 H Creatinine 2.7 H Glucose 195 H POC Glucose 204 H 169 H Lactic Acid Calcium Phosphorus Magnesium Direct Bilirubin ALT Alkaline Phosphatase Troponin T C-Reactive Protein Total Protein Albumin Triglycerides Cholesterol LDL Cholesterol Direct HDL Cholesterol Urine WBC (Auto) Urine Creatinine Urine Total Protein Vancomycin Trough Rheumatoid Factor Complement C4 Crossmatch 09/08/16 09/08/16 09/08/16 11:48 11:48 11:48 WBC RBC Hgb Hct MCV MCH MCHC RDW Plt Count Lymph % (Auto) [place] % (Auto) Lymph # [place] # Seg Neutrophils % Seg Neuts % (Manual) Lymphocytes % (Manual) Monocytes % (Manual) Eosinophils % (Manual) Basophils % (Manual) Nucleated RBC % Seg Neutrophils # Seg Neutrophils # Man Lymphocytes # (Manual) Monocytes # (Manual) Eosinophils # (Manual) PT INR Fibrinogen 750 H dRVVT Confirm Interp Factor V Activity POC ABG pH POC ABG pCO2 POC ABG pO2 Sodium Potassium Chloride Carbon Dioxide BUN Creatinine Glucose POC Glucose Lactic Acid Calcium Phosphorus Magnesium Direct Bilirubin ALT Alkaline Phosphatase Troponin T C-Reactive Protein 15.70 H Total Protein Albumin Triglycerides Cholesterol LDL Cholesterol Direct HDL Cholesterol Urine WBC (Auto) Urine Creatinine Urine Total Protein Vancomycin Trough Rheumatoid Factor 24 H Complement C4 Crossmatch 09/08/16 09/08/16 09/09/16 15:35 18:25 00:24 WBC RBC Hgb Hct MCV MCH MCHC RDW Plt Count Lymph % (Auto) [place] % (Auto) Lymph # [place] # Seg Neutrophils % Seg Neuts % (Manual) Lymphocytes % (Manual) Monocytes % (Manual) Eosinophils % (Manual) Basophils % (Manual) Nucleated RBC % Seg Neutrophils # Seg Neutrophils # Man Lymphocytes # (Manual) Monocytes # (Manual) Eosinophils # (Manual) PT INR Fibrinogen dRVVT Confirm Interp Factor V Activity 182 H POC ABG pH POC ABG pCO2 POC ABG pO2 Sodium Potassium Chloride Carbon Dioxide BUN Creatinine Glucose POC Glucose 184 H 216 H Lactic Acid Calcium Phosphorus Magnesium Direct Bilirubin ALT Alkaline Phosphatase Troponin T C-Reactive Protein Total Protein Albumin Triglycerides Cholesterol LDL Cholesterol Direct HDL Cholesterol Urine WBC (Auto) Urine Creatinine Urine Total Protein Vancomycin Trough Rheumatoid Factor Complement C4 Crossmatch 09/09/16 09/09/16 09/09/16 03:00 03:00 04:04 WBC 27.9 H RBC Hgb 8.7 L Hct 28.1 L MCV 72 L MCH 22 L MCHC RDW 18.4 H Plt Count 485 H Lymph % (Auto) [place] % (Auto) Lymph # [place] # Seg Neutrophils % Seg Neuts % (Manual) 77.0 H Lymphocytes % (Manual) 9.0 L Monocytes % (Manual) Eosinophils % (Manual) Basophils % (Manual) Nucleated RBC % Seg Neutrophils # Seg Neutrophils # Man 21.5 H Lymphocytes # (Manual) Monocytes # (Manual) 2.0 H Eosinophils # (Manual) PT INR Fibrinogen dRVVT Confirm Interp Factor V Activity POC ABG pH POC ABG pCO2 POC ABG pO2 121 H Sodium 135 L Potassium Chloride 96.3 L Carbon Dioxide 21 L BUN 83 H Creatinine 3.0 H Glucose 135 H POC Glucose Lactic Acid Calcium Phosphorus Magnesium Direct Bilirubin ALT Alkaline Phosphatase Troponin T C-Reactive Protein Total Protein Albumin Triglycerides Cholesterol LDL Cholesterol Direct HDL Cholesterol Urine WBC (Auto) Urine Creatinine Urine Total Protein Vancomycin Trough Rheumatoid Factor Complement C4 Crossmatch 09/09/16 09/09/16 09/09/16 05:41 11:55 14:13 WBC RBC Hgb Hct MCV MCH MCHC RDW Plt Count Lymph % (Auto) [place] % (Auto) Lymph # [place] # Seg Neutrophils % Seg Neuts % (Manual) Lymphocytes % (Manual) Monocytes % (Manual) Eosinophils % (Manual) Basophils % (Manual) Nucleated RBC % Seg Neutrophils # Seg Neutrophils # Man Lymphocytes # (Manual) Monocytes # (Manual) Eosinophils # (Manual) PT INR Fibrinogen dRVVT Confirm Interp Factor V Activity POC ABG pH POC ABG pCO2 POC ABG pO2 Sodium Potassium Chloride Carbon Dioxide BUN Creatinine Glucose POC Glucose 155 H 186 H Lactic Acid Calcium Phosphorus Magnesium Direct Bilirubin ALT Alkaline Phosphatase Troponin T C-Reactive Protein Total Protein Albumin Triglycerides Cholesterol LDL Cholesterol Direct HDL Cholesterol Urine WBC (Auto) 25.0 H Urine Creatinine Urine Total Protein Vancomycin Trough Rheumatoid Factor Complement C4 Crossmatch 09/09/16 09/09/16 09/10/16 17:33 23:13 05:09 WBC RBC Hgb Hct MCV MCH MCHC RDW Plt Count Lymph % (Auto) [place] % (Auto) Lymph # [place] # Seg Neutrophils % Seg Neuts % (Manual) Lymphocytes % (Manual) Monocytes % (Manual) Eosinophils % (Manual) Basophils % (Manual) Nucleated RBC % Seg Neutrophils # Seg Neutrophils # Man Lymphocytes # (Manual) Monocytes # (Manual) Eosinophils # (Manual) PT INR Fibrinogen dRVVT Confirm Interp Factor V Activity POC ABG pH POC ABG pCO2 POC ABG pO2 74 L Sodium Potassium Chloride Carbon Dioxide BUN Creatinine Glucose POC Glucose 211 H 215 H Lactic Acid Calcium Phosphorus Magnesium Direct Bilirubin ALT Alkaline Phosphatase Troponin T C-Reactive Protein Total Protein Albumin Triglycerides Cholesterol LDL Cholesterol Direct HDL Cholesterol Urine WBC (Auto) Urine Creatinine Urine Total Protein Vancomycin Trough Rheumatoid Factor Complement C4 Crossmatch 09/10/16 09/10/16 09/10/16 05:17 05:17 11:31 WBC 15.8 H RBC 3.25 L Hgb 7.3 L Hct 22.9 L MCV 71 L MCH 23 L MCHC RDW 18.4 H Plt Count Lymph % (Auto) [place] % (Auto) Lymph # [place] # Seg Neutrophils % Seg Neuts % (Manual) 91.0 H Lymphocytes % (Manual) 4.0 L Monocytes % (Manual) Eosinophils % (Manual) Basophils % (Manual) Nucleated RBC % Seg Neutrophils # Seg Neutrophils # Man 14.4 H Lymphocytes # (Manual) 0.6 L Monocytes # (Manual) Eosinophils # (Manual) PT INR Fibrinogen dRVVT Confirm Interp Factor V Activity POC ABG pH POC ABG pCO2 POC ABG pO2 Sodium Potassium Chloride Carbon Dioxide 21 L BUN 93 H Creatinine 2.9 H Glucose 146 H POC Glucose 188 H Lactic Acid Calcium 8.1 L Phosphorus Magnesium Direct Bilirubin ALT Alkaline Phosphatase Troponin T C-Reactive Protein Total Protein Albumin Triglycerides Cholesterol LDL Cholesterol Direct HDL Cholesterol Urine WBC (Auto) Urine Creatinine Urine Total Protein Vancomycin Trough Rheumatoid Factor Complement C4 Crossmatch 09/10/16 09/10/16 09/10/16 13:17 17:20 23:32 WBC RBC Hgb Hct MCV MCH MCHC RDW Plt Count Lymph % (Auto) [place] % (Auto) Lymph # [place] # Seg Neutrophils % Seg Neuts % (Manual) Lymphocytes % (Manual) Monocytes % (Manual) Eosinophils % (Manual) Basophils % (Manual) Nucleated RBC % Seg Neutrophils # Seg Neutrophils # Man Lymphocytes # (Manual) Monocytes # (Manual) Eosinophils # (Manual) PT INR Fibrinogen dRVVT Confirm Interp Factor V Activity POC ABG pH POC ABG pCO2 POC ABG pO2 Sodium Potassium Chloride Carbon Dioxide BUN Creatinine Glucose POC Glucose 199 H 186 H Lactic Acid Calcium Phosphorus Magnesium Direct Bilirubin ALT Alkaline Phosphatase Troponin T C-Reactive Protein Total Protein Albumin Triglycerides Cholesterol LDL Cholesterol Direct HDL Cholesterol Urine WBC (Auto) Urine Creatinine Urine Total Protein Vancomycin Trough Rheumatoid Factor Complement C4 Crossmatch See Detail 09/11/16 09/11/16 09/11/16 05:10 05:10 05:17 WBC 28.4 H RBC Hgb 9.2 L Hct 29.3 L D MCV 73 L MCH 23 L MCHC RDW 18.9 H Plt Count 452 H Lymph % (Auto) [place] % (Auto) Lymph # [place] # Seg Neutrophils % Seg Neuts % (Manual) 89.5 H Lymphocytes % (Manual) 2.0 L Monocytes % (Manual) Eosinophils % (Manual) Basophils % (Manual) Nucleated RBC % Seg Neutrophils # Seg Neutrophils # Man 25.4 H Lymphocytes # (Manual) 0.6 L Monocytes # (Manual) 1.3 H Eosinophils # (Manual) PT INR Fibrinogen dRVVT Confirm Interp Factor V Activity POC ABG pH POC ABG pCO2 POC ABG pO2 Sodium 136 L Potassium Chloride Carbon Dioxide 18 L BUN 107 H Creatinine 2.6 H Glucose 187 H POC Glucose 230 H Lactic Acid Calcium 8.3 L Phosphorus Magnesium Direct Bilirubin ALT Alkaline Phosphatase Troponin T C-Reactive Protein Total Protein Albumin Triglycerides Cholesterol LDL Cholesterol Direct HDL Cholesterol Urine WBC (Auto) Urine Creatinine Urine Total Protein Vancomycin Trough Rheumatoid Factor Complement C4 Crossmatch 09/11/16 09/11/16 09/11/16 05:55 12:02 17:32 WBC RBC Hgb Hct MCV MCH MCHC RDW Plt Count Lymph % (Auto) [place] % (Auto) Lymph # [place] # Seg Neutrophils % Seg Neuts % (Manual) Lymphocytes % (Manual) Monocytes % (Manual) Eosinophils % (Manual) Basophils % (Manual) Nucleated RBC % Seg Neutrophils # Seg Neutrophils # Man Lymphocytes # (Manual) Monocytes # (Manual) Eosinophils # (Manual) PT INR Fibrinogen dRVVT Confirm Interp Factor V Activity POC ABG pH POC ABG pCO2 33.8 L POC ABG pO2 Sodium Potassium Chloride Carbon Dioxide BUN Creatinine Glucose POC Glucose 191 H 239 H Lactic Acid Calcium Phosphorus Magnesium Direct Bilirubin ALT Alkaline Phosphatase Troponin T C-Reactive Protein Total Protein Albumin Triglycerides Cholesterol LDL Cholesterol Direct HDL Cholesterol Urine WBC (Auto) Urine Creatinine Urine Total Protein Vancomycin Trough Rheumatoid Factor Complement C4 Crossmatch 09/11/16 09/12/16 09/12/16 23:52 05:09 05:32 WBC RBC Hgb Hct MCV MCH MCHC RDW Plt Count Lymph % (Auto) [place] % (Auto) Lymph # [place] # Seg Neutrophils % Seg Neuts % (Manual) Lymphocytes % (Manual) Monocytes % (Manual) Eosinophils % (Manual) Basophils % (Manual) Nucleated RBC % Seg Neutrophils # Seg Neutrophils # Man Lymphocytes # (Manual) Monocytes # (Manual) Eosinophils # (Manual) PT INR Fibrinogen dRVVT Confirm Interp Factor V Activity POC ABG pH POC ABG pCO2 34.6 L POC ABG pO2 Sodium Potassium Chloride Carbon Dioxide BUN Creatinine Glucose POC Glucose 265 H 184 H Lactic Acid Calcium Phosphorus Magnesium Direct Bilirubin ALT Alkaline Phosphatase Troponin T C-Reactive Protein Total Protein Albumin Triglycerides Cholesterol LDL Cholesterol Direct HDL Cholesterol Urine WBC (Auto) Urine Creatinine Urine Total Protein Vancomycin Trough Rheumatoid Factor Complement C4 Crossmatch 09/12/16 09/12/16 09/12/16 06:45 06:45 07:22 WBC 31.7 H RBC 3.54 L Hgb 8.3 L Hct 25.9 L MCV 73 L MCH 23 L MCHC RDW 18.9 H Plt Count Lymph % (Auto) [place] % (Auto) Lymph # [place] # Seg Neutrophils % Seg Neuts % (Manual) 88.5 H Lymphocytes % (Manual) 4.5 L Monocytes % (Manual) Eosinophils % (Manual) Basophils % (Manual) Nucleated RBC % Seg Neutrophils # Seg Neutrophils # Man 28.1 H Lymphocytes # (Manual) Monocytes # (Manual) 1.0 H Eosinophils # (Manual) PT INR Fibrinogen dRVVT Confirm Interp Factor V Activity POC ABG pH POC ABG pCO2 POC ABG pO2 Sodium Potassium Chloride Carbon Dioxide 20 L BUN 115 H Creatinine 2.7 H Glucose 165 H POC Glucose Lactic Acid Calcium 8.0 L Phosphorus Magnesium Direct Bilirubin ALT Alkaline Phosphatase Troponin T C-Reactive Protein Total Protein Albumin Triglycerides 217 H Cholesterol LDL Cholesterol Direct HDL Cholesterol Urine WBC (Auto) Urine Creatinine Urine Total Protein Vancomycin Trough Rheumatoid Factor Complement C4 Crossmatch 09/12/16 09/12/16 09/12/16 07:22 09:59 12:21 WBC RBC Hgb Hct MCV MCH MCHC RDW Plt Count Lymph % (Auto) [place] % (Auto) Lymph # [place] # Seg Neutrophils % Seg Neuts % (Manual) Lymphocytes % (Manual) Monocytes % (Manual) Eosinophils % (Manual) Basophils % (Manual) Nucleated RBC % Seg Neutrophils # Seg Neutrophils # Man Lymphocytes # (Manual) Monocytes # (Manual) Eosinophils # (Manual) PT INR Fibrinogen dRVVT Confirm Interp Positive H Factor V Activity POC ABG pH POC ABG pCO2 POC ABG pO2 Sodium Potassium Chloride Carbon Dioxide BUN Creatinine Glucose POC Glucose 224 H Lactic Acid Calcium Phosphorus Magnesium Direct Bilirubin ALT Alkaline Phosphatase Troponin T C-Reactive Protein 1.70 H Total Protein Albumin Triglycerides Cholesterol LDL Cholesterol Direct HDL Cholesterol Urine WBC (Auto) Urine Creatinine Urine Total Protein Vancomycin Trough Rheumatoid Factor Complement C4 Crossmatch 09/12/16 09/12/16 09/13/16 16:51 23:28 04:00 WBC 45.0 H* RBC Hgb 9.4 L Hct MCV 75 L MCH 23 L MCHC RDW 19.0 H Plt Count 470 H Lymph % (Auto) [place] % (Auto) Lymph # [place] # Seg Neutrophils % Seg Neuts % (Manual) 89.0 H Lymphocytes % (Manual) 5.0 L Monocytes % (Manual) Eosinophils % (Manual) Basophils % (Manual) Nucleated RBC % Seg Neutrophils # Seg Neutrophils # Man 40.1 H Lymphocytes # (Manual) Monocytes # (Manual) Eosinophils # (Manual) PT INR Fibrinogen dRVVT Confirm Interp Factor V Activity POC ABG pH POC ABG pCO2 POC ABG pO2 Sodium Potassium Chloride Carbon Dioxide BUN Creatinine Glucose POC Glucose 169 H 150 H Lactic Acid Calcium Phosphorus Magnesium Direct Bilirubin ALT Alkaline Phosphatase Troponin T C-Reactive Protein Total Protein Albumin Triglycerides Cholesterol LDL Cholesterol Direct HDL Cholesterol Urine WBC (Auto) Urine Creatinine Urine Total Protein Vancomycin Trough Rheumatoid Factor Complement C4 Crossmatch 09/13/16 09/13/16 09/13/16 04:00 11:26 17:31 WBC RBC Hgb Hct MCV MCH MCHC RDW Plt Count Lymph % (Auto) [place] % (Auto) Lymph # [place] # Seg Neutrophils % Seg Neuts % (Manual) Lymphocytes % (Manual) Monocytes % (Manual) Eosinophils % (Manual) Basophils % (Manual) Nucleated RBC % Seg Neutrophils # Seg Neutrophils # Man Lymphocytes # (Manual) Monocytes # (Manual) Eosinophils # (Manual) PT INR Fibrinogen dRVVT Confirm Interp Factor V Activity POC ABG pH POC ABG pCO2 POC ABG pO2 Sodium Potassium Chloride Carbon Dioxide 20 L BUN 116 H Creatinine 3.0 H Glucose 172 H POC Glucose 140 H 183 H Lactic Acid Calcium Phosphorus Magnesium Direct Bilirubin ALT Alkaline Phosphatase Troponin T C-Reactive Protein Total Protein 6.2 L Albumin 2.9 L Triglycerides Cholesterol LDL Cholesterol Direct HDL Cholesterol Urine WBC (Auto) Urine Creatinine Urine Total Protein Vancomycin Trough Rheumatoid Factor Complement C4 Crossmatch 09/13/16 09/14/16 09/14/16 23:23 04:06 04:07 WBC 29.4 H RBC Hgb 8.9 L Hct 27.3 L MCV 75 L MCH 24 L MCHC RDW 19.1 H Plt Count Lymph % (Auto) [place] % (Auto) Lymph # [place] # Seg Neutrophils % Seg Neuts % (Manual) 84.0 H Lymphocytes % (Manual) 6.0 L Monocytes % (Manual) 9.0 H Eosinophils % (Manual) Basophils % (Manual) Nucleated RBC % Seg Neutrophils # Seg Neutrophils # Man 24.7 H Lymphocytes # (Manual) Monocytes # (Manual) 2.6 H Eosinophils # (Manual) PT INR Fibrinogen dRVVT Confirm Interp Factor V Activity POC ABG pH 7.342 L POC ABG pCO2 POC ABG pO2 116 H Sodium Potassium Chloride Carbon Dioxide BUN Creatinine Glucose POC Glucose 154 H Lactic Acid Calcium Phosphorus Magnesium Direct Bilirubin ALT Alkaline Phosphatase Troponin T C-Reactive Protein Total Protein Albumin Triglycerides Cholesterol LDL Cholesterol Direct HDL Cholesterol Urine WBC (Auto) Urine Creatinine Urine Total Protein Vancomycin Trough Rheumatoid Factor Complement C4 Crossmatch 09/14/16 09/14/16 09/14/16 04:07 05:29 12:19 WBC RBC Hgb Hct MCV MCH MCHC RDW Plt Count Lymph % (Auto) [place] % (Auto) Lymph # [place] # Seg Neutrophils % Seg Neuts % (Manual) Lymphocytes % (Manual) Monocytes % (Manual) Eosinophils % (Manual) Basophils % (Manual) Nucleated RBC % Seg Neutrophils # Seg Neutrophils # Man Lymphocytes # (Manual) Monocytes # (Manual) Eosinophils # (Manual) PT INR Fibrinogen dRVVT Confirm Interp Factor V Activity POC ABG pH POC ABG pCO2 POC ABG pO2 Sodium 136 L Potassium Chloride Carbon Dioxide 18 L BUN 121 H Creatinine 2.8 H Glucose 214 H POC Glucose 239 H 181 H Lactic Acid Calcium Phosphorus Magnesium Direct Bilirubin ALT Alkaline Phosphatase Troponin T C-Reactive Protein Total Protein Albumin Triglycerides Cholesterol LDL Cholesterol Direct HDL Cholesterol Urine WBC (Auto) Urine Creatinine Urine Total Protein Vancomycin Trough Rheumatoid Factor Complement C4 Crossmatch 09/14/16 09/14/16 09/15/16 18:12 23:37 05:00 WBC 26.1 H RBC 3.05 L Hgb 7.2 L Hct 22.9 L MCV 75 L MCH 24 L MCHC RDW 19.0 H Plt Count Lymph % (Auto) [place] % (Auto) Lymph # [place] # Seg Neutrophils % Seg Neuts % (Manual) Lymphocytes % (Manual) Monocytes % (Manual) Eosinophils % (Manual) Basophils % (Manual) Nucleated RBC % Seg Neutrophils # Seg Neutrophils # Man Lymphocytes # (Manual) Monocytes # (Manual) Eosinophils # (Manual) PT INR Fibrinogen dRVVT Confirm Interp Factor V Activity POC ABG pH POC ABG pCO2 POC ABG pO2 Sodium Potassium Chloride Carbon Dioxide BUN Creatinine Glucose POC Glucose 266 H 154 H Lactic Acid Calcium Phosphorus Magnesium Direct Bilirubin ALT Alkaline Phosphatase Troponin T C-Reactive Protein Total Protein Albumin Triglycerides Cholesterol LDL Cholesterol Direct HDL Cholesterol Urine WBC (Auto) Urine Creatinine Urine Total Protein Vancomycin Trough Rheumatoid Factor Complement C4 Crossmatch 09/15/16 09/15/16 09/15/16 05:00 05:17 12:45 WBC RBC Hgb Hct MCV MCH MCHC RDW Plt Count Lymph % (Auto) [place] % (Auto) Lymph # [place] # Seg Neutrophils % Seg Neuts % (Manual) Lymphocytes % (Manual) Monocytes % (Manual) Eosinophils % (Manual) Basophils % (Manual) Nucleated RBC % Seg Neutrophils # Seg Neutrophils # Man Lymphocytes # (Manual) Monocytes # (Manual) Eosinophils # (Manual) PT INR Fibrinogen dRVVT Confirm Interp Factor V Activity POC ABG pH POC ABG pCO2 POC ABG pO2 Sodium Potassium 5.2 H Chloride Carbon Dioxide 18 L BUN 139 H Creatinine 3.7 H Glucose 227 H POC Glucose 226 H 244 H Lactic Acid Calcium 8.3 L Phosphorus Magnesium Direct Bilirubin ALT Alkaline Phosphatase Troponin T C-Reactive Protein Total Protein Albumin Triglycerides Cholesterol LDL Cholesterol Direct HDL Cholesterol Urine WBC (Auto) Urine Creatinine Urine Total Protein Vancomycin Trough Rheumatoid Factor Complement C4 Crossmatch 09/15/16 09/15/16 09/15/16 14:32 17:33 23:35 WBC RBC Hgb Hct MCV MCH MCHC RDW Plt Count Lymph % (Auto) [place] % (Auto) Lymph # [place] # Seg Neutrophils % Seg Neuts % (Manual) Lymphocytes % (Manual) Monocytes % (Manual) Eosinophils % (Manual) Basophils % (Manual) Nucleated RBC % Seg Neutrophils # Seg Neutrophils # Man Lymphocytes # (Manual) Monocytes # (Manual) Eosinophils # (Manual) PT INR Fibrinogen dRVVT Confirm Interp Factor V Activity POC ABG pH POC ABG pCO2 27.7 L POC ABG pO2 120 H Sodium Potassium Chloride Carbon Dioxide BUN Creatinine Glucose POC Glucose 232 H 167 H Lactic Acid Calcium Phosphorus Magnesium Direct Bilirubin ALT Alkaline Phosphatase Troponin T C-Reactive Protein Total Protein Albumin Triglycerides Cholesterol LDL Cholesterol Direct HDL Cholesterol Urine WBC (Auto) Urine Creatinine Urine Total Protein Vancomycin Trough Rheumatoid Factor Complement C4 Crossmatch 09/16/16 09/16/16 09/16/16 03:58 10:27 10:27 WBC 19.0 H RBC 2.77 L Hgb 6.5 L Hct 20.9 L MCV 76 L MCH 23 L MCHC RDW 19.3 H Plt Count Lymph % (Auto) 11.0 L [place] % (Auto) Lymph # [place] # 1.1 H Seg Neutrophils % 82.5 H Seg Neuts % (Manual) Lymphocytes % (Manual) Monocytes % (Manual) Eosinophils % (Manual) Basophils % (Manual) Nucleated RBC % Seg Neutrophils # 15.7 H Seg Neutrophils # Man Lymphocytes # (Manual) Monocytes # (Manual) Eosinophils # (Manual) PT INR Fibrinogen dRVVT Confirm Interp Factor V Activity POC ABG pH POC ABG pCO2 POC ABG pO2 Sodium Potassium Chloride 109.3 H Carbon Dioxide 18 L BUN 139 H Creatinine 4.1 H Glucose 144 H POC Glucose 146 H Lactic Acid Calcium 8.1 L Phosphorus Magnesium Direct Bilirubin ALT Alkaline Phosphatase Troponin T C-Reactive Protein Total Protein Albumin Triglycerides Cholesterol LDL Cholesterol Direct HDL Cholesterol Urine WBC (Auto) Urine Creatinine Urine Total Protein Vancomycin Trough Rheumatoid Factor Complement C4 Crossmatch 09/16/16 09/16/16 09/16/16 12:04 12:10 13:55 WBC RBC Hgb Hct MCV MCH MCHC RDW Plt Count Lymph % (Auto) [place] % (Auto) Lymph # [place] # Seg Neutrophils % Seg Neuts % (Manual) Lymphocytes % (Manual) Monocytes % (Manual) Eosinophils % (Manual) Basophils % (Manual) Nucleated RBC % Seg Neutrophils # Seg Neutrophils # Man Lymphocytes # (Manual) Monocytes # (Manual) Eosinophils # (Manual) PT INR Fibrinogen dRVVT Confirm Interp Factor V Activity POC ABG pH POC ABG pCO2 32.9 L POC ABG pO2 Sodium Potassium Chloride Carbon Dioxide BUN Creatinine Glucose POC Glucose 185 H Lactic Acid Calcium Phosphorus Magnesium Direct Bilirubin ALT Alkaline Phosphatase Troponin T C-Reactive Protein Total Protein Albumin Triglycerides Cholesterol LDL Cholesterol Direct HDL Cholesterol Urine WBC (Auto) Urine Creatinine Urine Total Protein Vancomycin Trough Rheumatoid Factor Complement C4 Crossmatch See Detail 09/16/16 09/16/16 09/16/16 17:55 19:19 23:48 WBC RBC Hgb Hct MCV MCH MCHC RDW Plt Count Lymph % (Auto) [place] % (Auto) Lymph # [place] # Seg Neutrophils % Seg Neuts % (Manual) Lymphocytes % (Manual) Monocytes % (Manual) Eosinophils % (Manual) Basophils % (Manual) Nucleated RBC % Seg Neutrophils # Seg Neutrophils # Man Lymphocytes # (Manual) Monocytes # (Manual) Eosinophils # (Manual) PT INR Fibrinogen dRVVT Confirm Interp Factor V Activity POC ABG pH POC ABG pCO2 POC ABG pO2 Sodium Potassium Chloride Carbon Dioxide BUN Creatinine Glucose POC Glucose 222 H 107 H Lactic Acid Calcium Phosphorus Magnesium Direct Bilirubin ALT Alkaline Phosphatase Troponin T C-Reactive Protein Total Protein Albumin Triglycerides Cholesterol LDL Cholesterol Direct HDL Cholesterol Urine WBC (Auto) Urine Creatinine 47.4 H Urine Total Protein 16 H Vancomycin Trough Rheumatoid Factor Complement C4 Crossmatch 09/17/16 09/17/16 09/17/16 03:45 03:45 04:55 WBC 19.6 H RBC 3.41 L Hgb 8.5 L Hct 26.7 L MCV 78 L MCH 25 L MCHC RDW 19.9 H Plt Count Lymph % (Auto) 9.3 L [place] % (Auto) Lymph # [place] # 1.2 H Seg Neutrophils % 83.9 H Seg Neuts % (Manual) Lymphocytes % (Manual) Monocytes % (Manual) Eosinophils % (Manual) Basophils % (Manual) Nucleated RBC % Seg Neutrophils # 16.4 H Seg Neutrophils # Man Lymphocytes # (Manual) Monocytes # (Manual) Eosinophils # (Manual) PT INR Fibrinogen dRVVT Confirm Interp Factor V Activity POC ABG pH POC ABG pCO2 POC ABG pO2 Sodium 146 H Potassium 5.1 H Chloride 110.9 H Carbon Dioxide 16 L BUN 146 H Creatinine 4.0 H Glucose 108 H POC Glucose 133 H Lactic Acid Calcium Phosphorus Magnesium 3.00 H Direct Bilirubin ALT Alkaline Phosphatase Troponin T C-Reactive Protein Total Protein Albumin Triglycerides Cholesterol LDL Cholesterol Direct HDL Cholesterol Urine WBC (Auto) Urine Creatinine Urine Total Protein Vancomycin Trough Rheumatoid Factor Complement C4 Crossmatch 09/17/16 09/17/16 09/17/16 11:15 17:33 23:47 WBC RBC Hgb Hct MCV MCH MCHC RDW Plt Count Lymph % (Auto) [place] % (Auto) Lymph # [place] # Seg Neutrophils % Seg Neuts % (Manual) Lymphocytes % (Manual) Monocytes % (Manual) Eosinophils % (Manual) Basophils % (Manual) Nucleated RBC % Seg Neutrophils # Seg Neutrophils # Man Lymphocytes # (Manual) Monocytes # (Manual) Eosinophils # (Manual) PT INR Fibrinogen dRVVT Confirm Interp Factor V Activity POC ABG pH POC ABG pCO2 POC ABG pO2 Sodium Potassium Chloride Carbon Dioxide BUN Creatinine Glucose POC Glucose 176 H 246 H 148 H Lactic Acid Calcium Phosphorus Magnesium Direct Bilirubin ALT Alkaline Phosphatase Troponin T C-Reactive Protein Total Protein Albumin Triglycerides Cholesterol LDL Cholesterol Direct HDL Cholesterol Urine WBC (Auto) Urine Creatinine Urine Total Protein Vancomycin Trough Rheumatoid Factor Complement C4 Crossmatch 09/18/16 09/18/16 09/18/16 05:33 08:31 08:31 WBC 18.0 H RBC 3.17 L Hgb 9.0 L Hct 25.7 L MCV MCH MCHC 35 H RDW 20.4 H Plt Count Lymph % (Auto) [place] % (Auto) Lymph # [place] # Seg Neutrophils % Seg Neuts % (Manual) Lymphocytes % (Manual) Monocytes % (Manual) Eosinophils % (Manual) Basophils % (Manual) Nucleated RBC % Seg Neutrophils # Seg Neutrophils # Man Lymphocytes # (Manual) Monocytes # (Manual) Eosinophils # (Manual) PT INR Fibrinogen dRVVT Confirm Interp Factor V Activity POC ABG pH POC ABG pCO2 POC ABG pO2 Sodium Potassium Chloride Carbon Dioxide 15 L BUN 124 H Creatinine 3.8 H Glucose POC Glucose 120 H Lactic Acid Calcium 8.1 L Phosphorus Magnesium Direct Bilirubin ALT Alkaline Phosphatase Troponin T C-Reactive Protein Total Protein Albumin Triglycerides Cholesterol LDL Cholesterol Direct HDL Cholesterol Urine WBC (Auto) Urine Creatinine Urine Total Protein Vancomycin Trough Rheumatoid Factor Complement C4 Crossmatch 09/18/16 09/18/16 09/18/16 12:03 15:34 17:50 WBC RBC Hgb Hct MCV MCH MCHC RDW Plt Count Lymph % (Auto) [place] % (Auto) Lymph # [place] # Seg Neutrophils % Seg Neuts % (Manual) Lymphocytes % (Manual) Monocytes % (Manual) Eosinophils % (Manual) Basophils % (Manual) Nucleated RBC % Seg Neutrophils # Seg Neutrophils # Man Lymphocytes # (Manual) Monocytes # (Manual) Eosinophils # (Manual) PT INR Fibrinogen dRVVT Confirm Interp Factor V Activity POC ABG pH POC ABG pCO2 25.7 L POC ABG pO2 66 L Sodium Potassium Chloride Carbon Dioxide BUN Creatinine Glucose POC Glucose 156 H 220 H Lactic Acid Calcium Phosphorus Magnesium Direct Bilirubin ALT Alkaline Phosphatase Troponin T C-Reactive Protein Total Protein Albumin Triglycerides Cholesterol LDL Cholesterol Direct HDL Cholesterol Urine WBC (Auto) Urine Creatinine Urine Total Protein Vancomycin Trough Rheumatoid Factor Complement C4 Crossmatch 09/19/16 09/19/16 09/19/16 06:21 09:50 09:50 WBC 17.1 H RBC 3.49 L Hgb 9.0 L Hct 28.1 L MCV MCH 26 L MCHC RDW 20.8 H Plt Count Lymph % (Auto) 11.5 L [place] % (Auto) 7.5 H Lymph # [place] # 1.3 H Seg Neutrophils % 79.8 H Seg Neuts % (Manual) Lymphocytes % (Manual) Monocytes % (Manual) Eosinophils % (Manual) Basophils % (Manual) Nucleated RBC % Seg Neutrophils # 13.7 H Seg Neutrophils # Man Lymphocytes # (Manual) Monocytes # (Manual) Eosinophils # (Manual) PT INR Fibrinogen dRVVT Confirm Interp Factor V Activity POC ABG pH POC ABG pCO2 POC ABG pO2 Sodium Potassium Chloride 108.6 H Carbon Dioxide 15 L BUN 125 H Creatinine 4.1 H Glucose 124 H POC Glucose 119 H Lactic Acid Calcium Phosphorus Magnesium Direct Bilirubin ALT Alkaline Phosphatase Troponin T C-Reactive Protein Total Protein Albumin Triglycerides Cholesterol LDL Cholesterol Direct HDL Cholesterol Urine WBC (Auto) Urine Creatinine Urine Total Protein Vancomycin Trough Rheumatoid Factor Complement C4 Crossmatch 09/19/16 09/19/16 09/19/16 11:25 17:53 23:36 WBC RBC Hgb Hct MCV MCH MCHC RDW Plt Count Lymph % (Auto) [place] % (Auto) Lymph # [place] # Seg Neutrophils % Seg Neuts % (Manual) Lymphocytes % (Manual) Monocytes % (Manual) Eosinophils % (Manual) Basophils % (Manual) Nucleated RBC % Seg Neutrophils # Seg Neutrophils # Man Lymphocytes # (Manual) Monocytes # (Manual) Eosinophils # (Manual) PT INR Fibrinogen dRVVT Confirm Interp Factor V Activity POC ABG pH POC ABG pCO2 POC ABG pO2 Sodium Potassium Chloride Carbon Dioxide BUN Creatinine Glucose POC Glucose 160 H 245 H 121 H Lactic Acid Calcium Phosphorus Magnesium Direct Bilirubin ALT Alkaline Phosphatase Troponin T C-Reactive Protein Total Protein Albumin Triglycerides Cholesterol LDL Cholesterol Direct HDL Cholesterol Urine WBC (Auto) Urine Creatinine Urine Total Protein Vancomycin Trough Rheumatoid Factor Complement C4 Crossmatch 09/20/16 09/20/16 09/20/16 04:10 04:10 04:10 WBC 17.0 H RBC 3.21 L Hgb 8.2 L Hct 25.5 L MCV MCH 26 L MCHC RDW 20.9 H Plt Count Lymph % (Auto) [place] % (Auto) Lymph # [place] # Seg Neutrophils % Seg Neuts % (Manual) Lymphocytes % (Manual) Monocytes % (Manual) Eosinophils % (Manual) Basophils % (Manual) Nucleated RBC % Seg Neutrophils # Seg Neutrophils # Man Lymphocytes # (Manual) Monocytes # (Manual) Eosinophils # (Manual) PT INR Fibrinogen dRVVT Confirm Interp Factor V Activity POC ABG pH POC ABG pCO2 POC ABG pO2 Sodium Potassium Chloride 111.0 H Carbon Dioxide 16 L BUN 129 H Creatinine 3.7 H Glucose 115 H POC Glucose Lactic Acid Calcium 8.2 L Phosphorus Magnesium Direct Bilirubin ALT Alkaline Phosphatase Troponin T C-Reactive Protein Total Protein Albumin Triglycerides 243 H Cholesterol LDL Cholesterol Direct HDL Cholesterol Urine WBC (Auto) Urine Creatinine Urine Total Protein Vancomycin Trough Rheumatoid Factor Complement C4 Crossmatch 09/20/16 09/20/16 09/20/16 05:40 11:52 16:50 WBC RBC Hgb Hct MCV MCH MCHC RDW Plt Count Lymph % (Auto) [place] % (Auto) Lymph # [place] # Seg Neutrophils % Seg Neuts % (Manual) Lymphocytes % (Manual) Monocytes % (Manual) Eosinophils % (Manual) Basophils % (Manual) Nucleated RBC % Seg Neutrophils # Seg Neutrophils # Man Lymphocytes # (Manual) Monocytes # (Manual) Eosinophils # (Manual) PT INR Fibrinogen dRVVT Confirm Interp Factor V Activity POC ABG pH POC ABG pCO2 POC ABG pO2 Sodium Potassium Chloride Carbon Dioxide BUN Creatinine Glucose POC Glucose 131 H 183 H 236 H Lactic Acid Calcium Phosphorus Magnesium Direct Bilirubin ALT Alkaline Phosphatase Troponin T C-Reactive Protein Total Protein Albumin Triglycerides Cholesterol LDL Cholesterol Direct HDL Cholesterol Urine WBC (Auto) Urine Creatinine Urine Total Protein Vancomycin Trough Rheumatoid Factor Complement C4 Crossmatch 09/20/16 09/21/16 09/21/16 23:51 03:30 04:44 WBC RBC Hgb Hct MCV MCH MCHC RDW Plt Count Lymph % (Auto) [place] % (Auto) Lymph # [place] # Seg Neutrophils % Seg Neuts % (Manual) Lymphocytes % (Manual) Monocytes % (Manual) Eosinophils % (Manual) Basophils % (Manual) Nucleated RBC % Seg Neutrophils # Seg Neutrophils # Man Lymphocytes # (Manual) Monocytes # (Manual) Eosinophils # (Manual) PT INR Fibrinogen dRVVT Confirm Interp Factor V Activity POC ABG pH POC ABG pCO2 POC ABG pO2 Sodium Potassium Chloride Carbon Dioxide BUN Creatinine Glucose POC Glucose 114 H 141 H Lactic Acid Calcium Phosphorus Magnesium 2.70 H Direct Bilirubin ALT Alkaline Phosphatase Troponin T C-Reactive Protein Total Protein Albumin Triglycerides Cholesterol LDL Cholesterol Direct HDL Cholesterol Urine WBC (Auto) Urine Creatinine Urine Total Protein Vancomycin Trough Rheumatoid Factor Complement C4 Crossmatch 09/21/16 09/21/16 09/21/16 07:45 07:45 10:01 WBC 13.8 H RBC 2.94 L Hgb 7.5 L Hct 23.5 L MCV MCH 26 L MCHC RDW 21.2 H Plt Count Lymph % (Auto) 6.9 L [place] % (Auto) 9.4 H Lymph # 0.9 L [place] # 1.3 H Seg Neutrophils % 83.2 H Seg Neuts % (Manual) Lymphocytes % (Manual) Monocytes % (Manual) Eosinophils % (Manual) Basophils % (Manual) Nucleated RBC % Seg Neutrophils # 11.5 H Seg Neutrophils # Man Lymphocytes # (Manual) Monocytes # (Manual) Eosinophils # (Manual) PT INR Fibrinogen dRVVT Confirm Interp Factor V Activity POC ABG pH 7.308 L POC ABG pCO2 31.9 L POC ABG pO2 148 H Sodium 147 H Potassium Chloride 114.2 H Carbon Dioxide 15 L BUN 120 H Creatinine 3.9 H Glucose 156 H POC Glucose Lactic Acid Calcium 8.2 L Phosphorus Magnesium Direct Bilirubin ALT Alkaline Phosphatase Troponin T C-Reactive Protein Total Protein Albumin Triglycerides Cholesterol LDL Cholesterol Direct HDL Cholesterol Urine WBC (Auto) Urine Creatinine Urine Total Protein Vancomycin Trough Rheumatoid Factor Complement C4 Crossmatch 09/21/16 09/21/16 09/21/16 12:00 12:03 13:00 WBC RBC Hgb Hct MCV MCH MCHC RDW Plt Count Lymph % (Auto) [place] % (Auto) Lymph # [place] # Seg Neutrophils % Seg Neuts % (Manual) Lymphocytes % (Manual) Monocytes % (Manual) Eosinophils % (Manual) Basophils % (Manual) Nucleated RBC % Seg Neutrophils # Seg Neutrophils # Man Lymphocytes # (Manual) Monocytes # (Manual) Eosinophils # (Manual) PT INR Fibrinogen dRVVT Confirm Interp Factor V Activity POC ABG pH POC ABG pCO2 POC ABG pO2 Sodium Potassium Chloride Carbon Dioxide BUN Creatinine Glucose POC Glucose 163 H Lactic Acid Calcium Phosphorus Magnesium Direct Bilirubin ALT Alkaline Phosphatase Troponin T C-Reactive Protein Total Protein Albumin Triglycerides Cholesterol LDL Cholesterol Direct HDL Cholesterol Urine WBC (Auto) Urine Creatinine 54.8 H Urine Total Protein Vancomycin Trough 2.3 L Rheumatoid Factor Complement C4 Crossmatch 09/21/16 09/21/16 09/22/16 16:51 23:17 06:27 WBC RBC Hgb Hct MCV MCH MCHC RDW Plt Count Lymph % (Auto) [place] % (Auto) Lymph # [place] # Seg Neutrophils % Seg Neuts % (Manual) Lymphocytes % (Manual) Monocytes % (Manual) Eosinophils % (Manual) Basophils % (Manual) Nucleated RBC % Seg Neutrophils # Seg Neutrophils # Man Lymphocytes # (Manual) Monocytes # (Manual) Eosinophils # (Manual) PT INR Fibrinogen dRVVT Confirm Interp Factor V Activity POC ABG pH POC ABG pCO2 POC ABG pO2 Sodium Potassium Chloride Carbon Dioxide BUN Creatinine Glucose POC Glucose 206 H 114 H 115 H Lactic Acid Calcium Phosphorus Magnesium Direct Bilirubin ALT Alkaline Phosphatase Troponin T C-Reactive Protein Total Protein Albumin Triglycerides Cholesterol LDL Cholesterol Direct HDL Cholesterol Urine WBC (Auto) Urine Creatinine Urine Total Protein Vancomycin Trough Rheumatoid Factor Complement C4 Crossmatch 09/22/16 09/22/16 09/22/16 07:50 07:50 12:00 WBC 17.8 H RBC 3.04 L Hgb 8.0 L Hct 24.7 L MCV MCH 26 L MCHC RDW 21.6 H Plt Count Lymph % (Auto) [place] % (Auto) Lymph # [place] # Seg Neutrophils % Seg Neuts % (Manual) Lymphocytes % (Manual) Monocytes % (Manual) Eosinophils % (Manual) Basophils % (Manual) Nucleated RBC % Seg Neutrophils # Seg Neutrophils # Man Lymphocytes # (Manual) Monocytes # (Manual) Eosinophils # (Manual) PT INR Fibrinogen dRVVT Confirm Interp Factor V Activity POC ABG pH POC ABG pCO2 POC ABG pO2 Sodium 150 H Potassium Chloride 118.2 H Carbon Dioxide 14 L BUN 111 H Creatinine 3.7 H Glucose 157 H POC Glucose 183 H Lactic Acid Calcium Phosphorus Magnesium Direct Bilirubin ALT Alkaline Phosphatase Troponin T C-Reactive Protein Total Protein Albumin Triglycerides Cholesterol LDL Cholesterol Direct HDL Cholesterol Urine WBC (Auto) Urine Creatinine Urine Total Protein Vancomycin Trough Rheumatoid Factor Complement C4 Crossmatch 09/22/16 09/22/16 09/23/16 17:29 23:10 05:00 WBC 19.2 H RBC 3.13 L Hgb 8.0 L Hct 25.2 L MCV MCH 26 L MCHC RDW 22.1 H Plt Count Lymph % (Auto) [place] % (Auto) Lymph # [place] # Seg Neutrophils % Seg Neuts % (Manual) 92.0 H Lymphocytes % (Manual) 3.0 L Monocytes % (Manual) Eosinophils % (Manual) Basophils % (Manual) Nucleated RBC % Seg Neutrophils # Seg Neutrophils # Man 17.7 H Lymphocytes # (Manual) 0.6 L Monocytes # (Manual) Eosinophils # (Manual) PT INR Fibrinogen dRVVT Confirm Interp Factor V Activity POC ABG pH POC ABG pCO2 POC ABG pO2 Sodium Potassium Chloride Carbon Dioxide BUN Creatinine Glucose POC Glucose 197 H 169 H Lactic Acid Calcium Phosphorus Magnesium Direct Bilirubin ALT Alkaline Phosphatase Troponin T C-Reactive Protein Total Protein Albumin Triglycerides Cholesterol LDL Cholesterol Direct HDL Cholesterol Urine WBC (Auto) Urine Creatinine Urine Total Protein Vancomycin Trough Rheumatoid Factor Complement C4 Crossmatch 09/23/16 09/23/16 09/23/16 05:00 05:00 05:10 WBC RBC Hgb Hct MCV MCH MCHC RDW Plt Count Lymph % (Auto) [place] % (Auto) Lymph # [place] # Seg Neutrophils % Seg Neuts % (Manual) Lymphocytes % (Manual) Monocytes % (Manual) Eosinophils % (Manual) Basophils % (Manual) Nucleated RBC % Seg Neutrophils # Seg Neutrophils # Man Lymphocytes # (Manual) Monocytes # (Manual) Eosinophils # (Manual) PT INR Fibrinogen dRVVT Confirm Interp Factor V Activity POC ABG pH POC ABG pCO2 POC ABG pO2 Sodium 147 H Potassium 3.2 L Chloride 115.7 H Carbon Dioxide 13 L BUN 111 H Creatinine 3.8 H Glucose 194 H POC Glucose 188 H Lactic Acid Calcium 7.3 L D Phosphorus Magnesium Direct Bilirubin ALT Alkaline Phosphatase Troponin T C-Reactive Protein 3.20 H Total Protein Albumin Triglycerides Cholesterol LDL Cholesterol Direct HDL Cholesterol Urine WBC (Auto) Urine Creatinine Urine Total Protein Vancomycin Trough Rheumatoid Factor Complement C4 Crossmatch 09/23/16 09/23/16 09/23/16 11:37 12:29 18:01 WBC RBC Hgb Hct MCV MCH MCHC RDW Plt Count Lymph % (Auto) [place] % (Auto) Lymph # [place] # Seg Neutrophils % Seg Neuts % (Manual) Lymphocytes % (Manual) Monocytes % (Manual) Eosinophils % (Manual) Basophils % (Manual) Nucleated RBC % Seg Neutrophils # Seg Neutrophils # Man Lymphocytes # (Manual) Monocytes # (Manual) Eosinophils # (Manual) PT INR Fibrinogen dRVVT Confirm Interp Factor V Activity POC ABG pH POC ABG pCO2 18.9 L POC ABG pO2 143 H Sodium Potassium Chloride Carbon Dioxide BUN Creatinine Glucose POC Glucose 153 H 108 H Lactic Acid Calcium Phosphorus Magnesium Direct Bilirubin ALT Alkaline Phosphatase Troponin T C-Reactive Protein Total Protein Albumin Triglycerides Cholesterol LDL Cholesterol Direct HDL Cholesterol Urine WBC (Auto) Urine Creatinine Urine Total Protein Vancomycin Trough Rheumatoid Factor Complement C4 Crossmatch 09/23/16 09/23/16 09/24/16 21:19 23:43 05:16 WBC RBC Hgb Hct MCV MCH MCHC RDW Plt Count Lymph % (Auto) [place] % (Auto) Lymph # [place] # Seg Neutrophils % Seg Neuts % (Manual) Lymphocytes % (Manual) Monocytes % (Manual) Eosinophils % (Manual) Basophils % (Manual) Nucleated RBC % Seg Neutrophils # Seg Neutrophils # Man Lymphocytes # (Manual) Monocytes # (Manual) Eosinophils # (Manual) PT INR Fibrinogen dRVVT Confirm Interp Factor V Activity POC ABG pH POC ABG pCO2 17.3 L POC ABG pO2 112 H Sodium Potassium Chloride Carbon Dioxide BUN Creatinine Glucose POC Glucose 143 H 164 H Lactic Acid Calcium Phosphorus Magnesium Direct Bilirubin ALT Alkaline Phosphatase Troponin T C-Reactive Protein Total Protein Albumin Triglycerides Cholesterol LDL Cholesterol Direct HDL Cholesterol Urine WBC (Auto) Urine Creatinine Urine Total Protein Vancomycin Trough Rheumatoid Factor Complement C4 Crossmatch 09/24/16 09/24/16 09/24/16 05:21 11:58 17:06 WBC RBC Hgb Hct MCV MCH MCHC RDW Plt Count Lymph % (Auto) [place] % (Auto) Lymph # [place] # Seg Neutrophils % Seg Neuts % (Manual) Lymphocytes % (Manual) Monocytes % (Manual) Eosinophils % (Manual) Basophils % (Manual) Nucleated RBC % Seg Neutrophils # Seg Neutrophils # Man Lymphocytes # (Manual) Monocytes # (Manual) Eosinophils # (Manual) PT INR Fibrinogen dRVVT Confirm Interp Factor V Activity POC ABG pH POC ABG pCO2 POC ABG pO2 Sodium Potassium Chloride Carbon Dioxide 10 L BUN 103 H Creatinine 4.3 H Glucose 163 H POC Glucose 173 H 167 H Lactic Acid Calcium 6.5 L Phosphorus Magnesium Direct Bilirubin ALT Alkaline Phosphatase Troponin T C-Reactive Protein Total Protein Albumin Triglycerides Cholesterol LDL Cholesterol Direct HDL Cholesterol Urine WBC (Auto) Urine Creatinine Urine Total Protein Vancomycin Trough Rheumatoid Factor Complement C4 Crossmatch 09/24/16 09/24/16 09/24/16 20:15 21:02 23:48 WBC RBC Hgb Hct MCV MCH MCHC RDW Plt Count Lymph % (Auto) [place] % (Auto) Lymph # [place] # Seg Neutrophils % Seg Neuts % (Manual) Lymphocytes % (Manual) Monocytes % (Manual) Eosinophils % (Manual) Basophils % (Manual) Nucleated RBC % Seg Neutrophils # Seg Neutrophils # Man Lymphocytes # (Manual) Monocytes # (Manual) Eosinophils # (Manual) PT INR Fibrinogen dRVVT Confirm Interp Factor V Activity POC ABG pH 7.288 L POC ABG pCO2 30.2 L 21.5 L POC ABG pO2 32 L 39 L Sodium Potassium Chloride Carbon Dioxide BUN Creatinine Glucose POC Glucose 109 H Lactic Acid Calcium Phosphorus Magnesium Direct Bilirubin ALT Alkaline Phosphatase Troponin T C-Reactive Protein Total Protein Albumin Triglycerides Cholesterol LDL Cholesterol Direct HDL Cholesterol Urine WBC (Auto) Urine Creatinine Urine Total Protein Vancomycin Trough Rheumatoid Factor Complement C4 Crossmatch 09/25/16 09/25/16 09/25/16 04:20 04:20 04:20 WBC RBC 2.58 L Hgb 7.0 L Hct 21.0 L MCV MCH 27 L MCHC RDW 23.8 H Plt Count Lymph % (Auto) [place] % (Auto) Lymph # [place] # Seg Neutrophils % Seg Neuts % (Manual) Lymphocytes % (Manual) 12.0 L Monocytes % (Manual) Eosinophils % (Manual) 7.0 H Basophils % (Manual) 2.0 H Nucleated RBC % Seg Neutrophils # Seg Neutrophils # Man Lymphocytes # (Manual) 0.9 L Monocytes # (Manual) Eosinophils # (Manual) 0.5 H PT INR Fibrinogen dRVVT Confirm Interp Factor V Activity POC ABG pH POC ABG pCO2 POC ABG pO2 Sodium Potassium Chloride Carbon Dioxide 15 L BUN 72 H Creatinine 3.8 H Glucose POC Glucose Lactic Acid Calcium 6.0 L Phosphorus 4.60 H Magnesium 1.60 L Direct Bilirubin ALT Alkaline Phosphatase Troponin T C-Reactive Protein Total Protein Albumin Triglycerides Cholesterol LDL Cholesterol Direct HDL Cholesterol Urine WBC (Auto) Urine Creatinine Urine Total Protein Vancomycin Trough Rheumatoid Factor Complement C4 Crossmatch 09/25/16 09/25/16 09/25/16 04:57 08:02 10:30 WBC RBC Hgb Hct MCV MCH MCHC RDW Plt Count Lymph % (Auto) [place] % (Auto) Lymph # [place] # Seg Neutrophils % Seg Neuts % (Manual) Lymphocytes % (Manual) Monocytes % (Manual) Eosinophils % (Manual) Basophils % (Manual) Nucleated RBC % Seg Neutrophils # Seg Neutrophils # Man Lymphocytes # (Manual) Monocytes # (Manual) Eosinophils # (Manual) PT INR Fibrinogen dRVVT Confirm Interp Factor V Activity POC ABG pH POC ABG pCO2 24.7 L POC ABG pO2 152 H Sodium Potassium Chloride Carbon Dioxide BUN Creatinine Glucose POC Glucose 113 H Lactic Acid Calcium Phosphorus Magnesium Direct Bilirubin ALT Alkaline Phosphatase Troponin T C-Reactive Protein Total Protein Albumin Triglycerides Cholesterol LDL Cholesterol Direct HDL Cholesterol Urine WBC (Auto) Urine Creatinine Urine Total Protein Vancomycin Trough Rheumatoid Factor Complement C4 Crossmatch See Detail 09/25/16 09/25/16 09/25/16 12:05 17:44 23:47 WBC RBC Hgb Hct MCV MCH MCHC RDW Plt Count Lymph % (Auto) [place] % (Auto) Lymph # [place] # Seg Neutrophils % Seg Neuts % (Manual) Lymphocytes % (Manual) Monocytes % (Manual) Eosinophils % (Manual) Basophils % (Manual) Nucleated RBC % Seg Neutrophils # Seg Neutrophils # Man Lymphocytes # (Manual) Monocytes # (Manual) Eosinophils # (Manual) PT INR Fibrinogen dRVVT Confirm Interp Factor V Activity POC ABG pH POC ABG pCO2 POC ABG pO2 Sodium Potassium Chloride Carbon Dioxide BUN Creatinine Glucose POC Glucose 117 H 119 H 150 H Lactic Acid Calcium Phosphorus Magnesium Direct Bilirubin ALT Alkaline Phosphatase Troponin T C-Reactive Protein Total Protein Albumin Triglycerides Cholesterol LDL Cholesterol Direct HDL Cholesterol Urine WBC (Auto) Urine Creatinine Urine Total Protein Vancomycin Trough Rheumatoid Factor Complement C4 Crossmatch 09/26/16 09/26/16 09/26/16 04:25 04:25 04:25 WBC RBC 2.65 L Hgb 7.4 L Hct 21.6 L MCV MCH MCHC RDW 22.5 H Plt Count Lymph % (Auto) [place] % (Auto) Lymph # [place] # Seg Neutrophils % Seg Neuts % (Manual) Lymphocytes % (Manual) 6.0 L Monocytes % (Manual) Eosinophils % (Manual) 11.0 H Basophils % (Manual) Nucleated RBC % Seg Neutrophils # Seg Neutrophils # Man Lymphocytes # (Manual) 0.4 L Monocytes # (Manual) Eosinophils # (Manual) 0.6 H PT INR Fibrinogen dRVVT Confirm Interp Factor V Activity POC ABG pH POC ABG pCO2 POC ABG pO2 Sodium Potassium Chloride 97.0 L Carbon Dioxide 19 L BUN 43 H Creatinine 2.6 H Glucose 130 H POC Glucose Lactic Acid 4.40 H* Calcium 6.7 L Phosphorus Magnesium Direct Bilirubin ALT Alkaline Phosphatase Troponin T C-Reactive Protein Total Protein Albumin Triglycerides Cholesterol LDL Cholesterol Direct HDL Cholesterol Urine WBC (Auto) Urine Creatinine Urine Total Protein Vancomycin Trough Rheumatoid Factor Complement C4 Crossmatch 09/26/16 09/26/16 09/26/16 05:20 11:44 12:12 WBC RBC Hgb Hct MCV MCH MCHC RDW Plt Count Lymph % (Auto) [place] % (Auto) Lymph # [place] # Seg Neutrophils % Seg Neuts % (Manual) Lymphocytes % (Manual) Monocytes % (Manual) Eosinophils % (Manual) Basophils % (Manual) Nucleated RBC % Seg Neutrophils # Seg Neutrophils # Man Lymphocytes # (Manual) Monocytes # (Manual) Eosinophils # (Manual) PT INR Fibrinogen dRVVT Confirm Interp Factor V Activity POC ABG pH POC ABG pCO2 27.0 L POC ABG pO2 69 L Sodium Potassium Chloride Carbon Dioxide BUN Creatinine Glucose POC Glucose 121 H 128 H Lactic Acid Calcium Phosphorus Magnesium Direct Bilirubin ALT Alkaline Phosphatase Troponin T C-Reactive Protein Total Protein Albumin Triglycerides Cholesterol LDL Cholesterol Direct HDL Cholesterol Urine WBC (Auto) Urine Creatinine Urine Total Protein Vancomycin Trough Rheumatoid Factor Complement C4 Crossmatch 09/26/16 09/26/16 09/27/16 18:31 23:40 08:20 WBC RBC Hgb Hct MCV MCH MCHC RDW Plt Count Lymph % (Auto) [place] % (Auto) Lymph # [place] # Seg Neutrophils % Seg Neuts % (Manual) Lymphocytes % (Manual) Monocytes % (Manual) Eosinophils % (Manual) Basophils % (Manual) Nucleated RBC % Seg Neutrophils # Seg Neutrophils # Man Lymphocytes # (Manual) Monocytes # (Manual) Eosinophils # (Manual) PT INR Fibrinogen dRVVT Confirm Interp Factor V Activity POC ABG pH POC ABG pCO2 POC ABG pO2 Sodium Potassium Chloride Carbon Dioxide BUN Creatinine Glucose POC Glucose 120 H 133 H Lactic Acid 4.10 H* Calcium Phosphorus Magnesium Direct Bilirubin ALT Alkaline Phosphatase Troponin T C-Reactive Protein Total Protein Albumin Triglycerides Cholesterol LDL Cholesterol Direct HDL Cholesterol Urine WBC (Auto) Urine Creatinine Urine Total Protein Vancomycin Trough Rheumatoid Factor Complement C4 Crossmatch 09/27/16 09/27/16 09/27/16 11:23 15:00 18:15 WBC RBC Hgb Hct MCV MCH MCHC RDW Plt Count Lymph % (Auto) [place] % (Auto) Lymph # [place] # Seg Neutrophils % Seg Neuts % (Manual) Lymphocytes % (Manual) Monocytes % (Manual) Eosinophils % (Manual) Basophils % (Manual) Nucleated RBC % Seg Neutrophils # Seg Neutrophils # Man Lymphocytes # (Manual) Monocytes # (Manual) Eosinophils # (Manual) PT INR Fibrinogen dRVVT Confirm Interp Factor V Activity POC ABG pH 7.459 H POC ABG pCO2 27.1 L POC ABG pO2 140 H Sodium Potassium Chloride Carbon Dioxide BUN Creatinine Glucose POC Glucose 114 H 127 H Lactic Acid Calcium Phosphorus Magnesium Direct Bilirubin ALT Alkaline Phosphatase Troponin T C-Reactive Protein Total Protein Albumin Triglycerides Cholesterol LDL Cholesterol Direct HDL Cholesterol Urine WBC (Auto) Urine Creatinine Urine Total Protein Vancomycin Trough Rheumatoid Factor Complement C4 Crossmatch 09/27/16 09/27/16 09/28/16 Unknown Unknown 03:45 WBC RBC 2.49 L Hgb 6.8 L Hct 20.7 L MCV MCH 27 L MCHC RDW 22.1 H Plt Count Lymph % (Auto) [place] % (Auto) Lymph # [place] # Seg Neutrophils % Seg Neuts % (Manual) 32.0 L Lymphocytes % (Manual) 12.0 L Monocytes % (Manual) 11.0 H Eosinophils % (Manual) 10.0 H Basophils % (Manual) Nucleated RBC % Seg Neutrophils # Seg Neutrophils # Man Lymphocytes # (Manual) 1.0 L Monocytes # (Manual) 0.9 H Eosinophils # (Manual) 0.8 H PT INR Fibrinogen dRVVT Confirm Interp Factor V Activity POC ABG pH POC ABG pCO2 POC ABG pO2 Sodium 135 L 135 L Potassium 3.5 L Chloride 93.6 L 94.4 L Carbon Dioxide 17 L 21 L BUN 45 H 28 H Creatinine 3.3 H 2.5 H Glucose 106 H POC Glucose Lactic Acid Calcium 7.3 L 7.1 L Phosphorus Magnesium Direct Bilirubin ALT Alkaline Phosphatase Troponin T C-Reactive Protein Total Protein Albumin Triglycerides Cholesterol LDL Cholesterol Direct HDL Cholesterol Urine WBC (Auto) Urine Creatinine Urine Total Protein Vancomycin Trough Rheumatoid Factor Complement C4 Crossmatch 09/28/16 09/28/16 09/28/16 03:45 07:25 11:58 WBC 13.3 H RBC 3.01 L Hgb 8.4 L Hct 25.0 L MCV MCH MCHC RDW 20.5 H Plt Count 128 L Lymph % (Auto) [place] % (Auto) Lymph # [place] # Seg Neutrophils % Seg Neuts % (Manual) Lymphocytes % (Manual) 7.0 L Monocytes % (Manual) Eosinophils % (Manual) 6.0 H Basophils % (Manual) Nucleated RBC % Seg Neutrophils # Seg Neutrophils # Man Lymphocytes # (Manual) 0.9 L Monocytes # (Manual) Eosinophils # (Manual) 0.8 H PT INR Fibrinogen dRVVT Confirm Interp Factor V Activity POC ABG pH POC ABG pCO2 POC ABG pO2 Sodium Potassium Chloride Carbon Dioxide BUN Creatinine Glucose POC Glucose 121 H Lactic Acid 4.50 H* Calcium Phosphorus Magnesium Direct Bilirubin ALT Alkaline Phosphatase Troponin T C-Reactive Protein Total Protein Albumin Triglycerides Cholesterol LDL Cholesterol Direct HDL Cholesterol Urine WBC (Auto) Urine Creatinine Urine Total Protein Vancomycin Trough Rheumatoid Factor Complement C4 Crossmatch 09/29/16 09/29/16 09/29/16 06:45 06:45 06:45 WBC 14.9 H RBC 2.74 L Hgb 7.6 L Hct 23.2 L MCV MCH MCHC RDW 20.5 H Plt Count 81 L Lymph % (Auto) [place] % (Auto) Lymph # [place] # Seg Neutrophils % Seg Neuts % (Manual) 81.0 H Lymphocytes % (Manual) 4.0 L Monocytes % (Manual) Eosinophils % (Manual) Basophils % (Manual) Nucleated RBC % Seg Neutrophils # Seg Neutrophils # Man 12.1 H Lymphocytes # (Manual) 0.6 L Monocytes # (Manual) Eosinophils # (Manual) PT INR Fibrinogen dRVVT Confirm Interp Factor V Activity POC ABG pH POC ABG pCO2 POC ABG pO2 Sodium 133 L Potassium 3.4 L Chloride 92.5 L Carbon Dioxide 21 L BUN 33 H Creatinine 3.0 H Glucose POC Glucose Lactic Acid Calcium 6.6 L Phosphorus Magnesium 1.40 L Direct Bilirubin 0.9 H ALT Alkaline Phosphatase Troponin T C-Reactive Protein Total Protein 4.3 L Albumin 1.3 L Triglycerides Cholesterol LDL Cholesterol Direct HDL Cholesterol Urine WBC (Auto) Urine Creatinine Urine Total Protein Vancomycin Trough Rheumatoid Factor Complement C4 Crossmatch 09/29/16 09/29/16 09/30/16 17:52 20:12 00:07 WBC RBC Hgb Hct MCV MCH MCHC RDW Plt Count Lymph % (Auto) [place] % (Auto) Lymph # [place] # Seg Neutrophils % Seg Neuts % (Manual) Lymphocytes % (Manual) Monocytes % (Manual) Eosinophils % (Manual) Basophils % (Manual) Nucleated RBC % Seg Neutrophils # Seg Neutrophils # Man Lymphocytes # (Manual) Monocytes # (Manual) Eosinophils # (Manual) PT INR Fibrinogen dRVVT Confirm Interp Factor V Activity POC ABG pH POC ABG pCO2 POC ABG pO2 Sodium Potassium Chloride Carbon Dioxide BUN Creatinine Glucose POC Glucose 50 L 51 L Lactic Acid Calcium Phosphorus Magnesium Direct Bilirubin ALT Alkaline Phosphatase Troponin T 0.204 H* C-Reactive Protein Total Protein Albumin Triglycerides Cholesterol 31 L LDL Cholesterol Direct 4 L HDL Cholesterol 3 L Urine WBC (Auto) Urine Creatinine Urine Total Protein Vancomycin Trough Rheumatoid Factor Complement C4 Crossmatch 09/30/16 09/30/16 09/30/16 01:30 05:15 06:10 WBC RBC Hgb Hct MCV MCH MCHC RDW Plt Count Lymph % (Auto) [place] % (Auto) Lymph # [place] # Seg Neutrophils % Seg Neuts % (Manual) Lymphocytes % (Manual) Monocytes % (Manual) Eosinophils % (Manual) Basophils % (Manual) Nucleated RBC % Seg Neutrophils # Seg Neutrophils # Man Lymphocytes # (Manual) Monocytes # (Manual) Eosinophils # (Manual) PT INR Fibrinogen dRVVT Confirm Interp Factor V Activity POC ABG pH POC ABG pCO2 POC ABG pO2 Sodium 133 L Potassium 3.2 L Chloride 93.2 L Carbon Dioxide 19 L BUN 36 H Creatinine 3.2 H Glucose 104 H POC Glucose 167 H 146 H Lactic Acid Calcium 6.4 L Phosphorus Magnesium 1.60 L Direct Bilirubin ALT Alkaline Phosphatase Troponin T C-Reactive Protein Total Protein Albumin Triglycerides Cholesterol LDL Cholesterol Direct HDL Cholesterol Urine WBC (Auto) Urine Creatinine Urine Total Protein Vancomycin Trough Rheumatoid Factor Complement C4 Crossmatch 09/30/16 09/30/16 09/30/16 11:26 13:39 18:38 WBC RBC Hgb Hct MCV MCH MCHC RDW Plt Count Lymph % (Auto) [place] % (Auto) Lymph # [place] # Seg Neutrophils % Seg Neuts % (Manual) Lymphocytes % (Manual) Monocytes % (Manual) Eosinophils % (Manual) Basophils % (Manual) Nucleated RBC % Seg Neutrophils # Seg Neutrophils # Man Lymphocytes # (Manual) Monocytes # (Manual) Eosinophils # (Manual) PT INR Fibrinogen dRVVT Confirm Interp Factor V Activity POC ABG pH 7.479 H POC ABG pCO2 29.8 L POC ABG pO2 117 H Sodium Potassium Chloride Carbon Dioxide BUN Creatinine Glucose POC Glucose 140 H 122 H Lactic Acid Calcium Phosphorus Magnesium Direct Bilirubin ALT Alkaline Phosphatase Troponin T C-Reactive Protein Total Protein Albumin Triglycerides Cholesterol LDL Cholesterol Direct HDL Cholesterol Urine WBC (Auto) Urine Creatinine Urine Total Protein Vancomycin Trough Rheumatoid Factor Complement C4 Crossmatch 10/01/16 10/01/16 10/01/16 06:00 06:00 12:37 WBC 12.6 H RBC 2.75 L Hgb 7.3 L Hct 23.3 L MCV MCH 27 L MCHC RDW 20.6 H Plt Count 72 L Lymph % (Auto) [place] % (Auto) Lymph # [place] # Seg Neutrophils % Seg Neuts % (Manual) 31.0 L Lymphocytes % (Manual) 8.0 L Monocytes % (Manual) Eosinophils % (Manual) Basophils % (Manual) Nucleated RBC % 3.0 H Seg Neutrophils # Seg Neutrophils # Man Lymphocytes # (Manual) 1.0 L Monocytes # (Manual) Eosinophils # (Manual) PT INR Fibrinogen dRVVT Confirm Interp Factor V Activity POC ABG pH POC ABG pCO2 POC ABG pO2 Sodium 127 L Potassium Chloride 86.8 L Carbon Dioxide 20 L BUN 42 H Creatinine 3.5 H Glucose POC Glucose 65 L Lactic Acid Calcium 7.0 L Phosphorus Magnesium Direct Bilirubin ALT Alkaline Phosphatase Troponin T C-Reactive Protein Total Protein Albumin Triglycerides Cholesterol LDL Cholesterol Direct HDL Cholesterol Urine WBC (Auto) Urine Creatinine Urine Total Protein Vancomycin Trough Rheumatoid Factor Complement C4 Crossmatch 10/01/16 10/01/16 10/02/16 17:39 23:32 00:59 WBC RBC Hgb Hct MCV MCH MCHC RDW Plt Count Lymph % (Auto) [place] % (Auto) Lymph # [place] # Seg Neutrophils % Seg Neuts % (Manual) Lymphocytes % (Manual) Monocytes % (Manual) Eosinophils % (Manual) Basophils % (Manual) Nucleated RBC % Seg Neutrophils # Seg Neutrophils # Man Lymphocytes # (Manual) Monocytes # (Manual) Eosinophils # (Manual) PT INR Fibrinogen dRVVT Confirm Interp Factor V Activity POC ABG pH POC ABG pCO2 POC ABG pO2 Sodium Potassium Chloride Carbon Dioxide BUN Creatinine Glucose POC Glucose 107 H 52 L 145 H Lactic Acid Calcium Phosphorus Magnesium Direct Bilirubin ALT Alkaline Phosphatase Troponin T C-Reactive Protein Total Protein Albumin Triglycerides Cholesterol LDL Cholesterol Direct HDL Cholesterol Urine WBC (Auto) Urine Creatinine Urine Total Protein Vancomycin Trough Rheumatoid Factor Complement C4 Crossmatch 10/02/16 10/02/16 10/02/16 10:30 10:50 10:50 WBC 14.7 H RBC 2.76 L Hgb 7.4 L Hct 23.6 L MCV MCH 27 L MCHC RDW 20.2 H Plt Count 79 L Lymph % (Auto) [place] % (Auto) Lymph # [place] # Seg Neutrophils % Seg Neuts % (Manual) 86.0 H Lymphocytes % (Manual) 6.0 L Monocytes % (Manual) Eosinophils % (Manual) Basophils % (Manual) Nucleated RBC % Seg Neutrophils # Seg Neutrophils # Man 12.6 H Lymphocytes # (Manual) 0.9 L Monocytes # (Manual) Eosinophils # (Manual) PT INR Fibrinogen dRVVT Confirm Interp Factor V Activity POC ABG pH 7.486 H POC ABG pCO2 30.1 L POC ABG pO2 108 H Sodium 131 L Potassium 3.4 L Chloride 89.9 L Carbon Dioxide BUN 26 H Creatinine 2.6 H Glucose POC Glucose Lactic Acid Calcium 7.0 L Phosphorus Magnesium Direct Bilirubin ALT Alkaline Phosphatase Troponin T C-Reactive Protein Total Protein Albumin Triglycerides Cholesterol LDL Cholesterol Direct HDL Cholesterol Urine WBC (Auto) Urine Creatinine Urine Total Protein Vancomycin Trough Rheumatoid Factor Complement C4 Crossmatch 10/02/16 10/03/16 10/03/16 23:45 00:45 05:10 WBC 12.9 H RBC 2.77 L Hgb 7.6 L Hct 23.7 L MCV MCH 27 L MCHC RDW 19.7 H Plt Count 89 L Lymph % (Auto) [place] % (Auto) Lymph # [place] # Seg Neutrophils % Seg Neuts % (Manual) Lymphocytes % (Manual) 8.0 L Monocytes % (Manual) Eosinophils % (Manual) Basophils % (Manual) Nucleated RBC % Seg Neutrophils # 11.9 H Seg Neutrophils # Man Lymphocytes # (Manual) 1.0 L Monocytes # (Manual) Eosinophils # (Manual) PT INR Fibrinogen dRVVT Confirm Interp Factor V Activity POC ABG pH POC ABG pCO2 POC ABG pO2 Sodium Potassium Chloride Carbon Dioxide BUN Creatinine Glucose POC Glucose 55 L 199 H Lactic Acid Calcium Phosphorus Magnesium Direct Bilirubin ALT Alkaline Phosphatase Troponin T C-Reactive Protein Total Protein Albumin Triglycerides Cholesterol LDL Cholesterol Direct HDL Cholesterol Urine WBC (Auto) Urine Creatinine Urine Total Protein Vancomycin Trough Rheumatoid Factor Complement C4 Crossmatch 10/03/16 10/03/16 10/03/16 05:10 12:14 13:18 WBC RBC Hgb Hct MCV MCH MCHC RDW Plt Count Lymph % (Auto) [place] % (Auto) Lymph # [place] # Seg Neutrophils % Seg Neuts % (Manual) Lymphocytes % (Manual) Monocytes % (Manual) Eosinophils % (Manual) Basophils % (Manual) Nucleated RBC % Seg Neutrophils # Seg Neutrophils # Man Lymphocytes # (Manual) Monocytes # (Manual) Eosinophils # (Manual) PT INR Fibrinogen dRVVT Confirm Interp Factor V Activity POC ABG pH POC ABG pCO2 POC ABG pO2 Sodium 129 L Potassium 3.3 L Chloride 88.8 L Carbon Dioxide 20 L BUN 29 H Creatinine 2.8 H Glucose POC Glucose 68 L 127 H Lactic Acid Calcium 7.2 L Phosphorus Magnesium Direct Bilirubin ALT Alkaline Phosphatase Troponin T C-Reactive Protein Total Protein Albumin Triglycerides Cholesterol LDL Cholesterol Direct HDL Cholesterol Urine WBC (Auto) Urine Creatinine Urine Total Protein Vancomycin Trough Rheumatoid Factor Complement C4 Crossmatch 10/03/16 10/03/16 10/03/16 14:42 18:21 19:09 WBC RBC Hgb Hct MCV MCH MCHC RDW Plt Count Lymph % (Auto) [place] % (Auto) Lymph # [place] # Seg Neutrophils % Seg Neuts % (Manual) Lymphocytes % (Manual) Monocytes % (Manual) Eosinophils % (Manual) Basophils % (Manual) Nucleated RBC % Seg Neutrophils # Seg Neutrophils # Man Lymphocytes # (Manual) Monocytes # (Manual) Eosinophils # (Manual) PT INR Fibrinogen dRVVT Confirm Interp Factor V Activity POC ABG pH 7.499 H POC ABG pCO2 28.4 L POC ABG pO2 44 L Sodium Potassium Chloride Carbon Dioxide BUN Creatinine Glucose POC Glucose 64 L 205 H Lactic Acid Calcium Phosphorus Magnesium Direct Bilirubin ALT Alkaline Phosphatase Troponin T C-Reactive Protein Total Protein Albumin Triglycerides Cholesterol LDL Cholesterol Direct HDL Cholesterol Urine WBC (Auto) Urine Creatinine Urine Total Protein Vancomycin Trough Rheumatoid Factor Complement C4 Crossmatch 10/03/16 10/04/16 10/04/16 23:33 04:18 06:30 WBC RBC 2.54 L Hgb 7.1 L Hct 21.7 L MCV MCH MCHC RDW 19.5 H Plt Count 76 L Lymph % (Auto) [place] % (Auto) Lymph # [place] # Seg Neutrophils % Seg Neuts % (Manual) 88.0 H Lymphocytes % (Manual) 6.0 L Monocytes % (Manual) Eosinophils % (Manual) Basophils % (Manual) Nucleated RBC % Seg Neutrophils # Seg Neutrophils # Man 8.8 H Lymphocytes # (Manual) 0.6 L Monocytes # (Manual) Eosinophils # (Manual) PT INR Fibrinogen dRVVT Confirm Interp Factor V Activity POC ABG pH 7.461 H POC ABG pCO2 33.6 L POC ABG pO2 211 H Sodium Potassium Chloride Carbon Dioxide BUN Creatinine Glucose POC Glucose 136 H Lactic Acid Calcium Phosphorus Magnesium Direct Bilirubin ALT Alkaline Phosphatase Troponin T C-Reactive Protein Total Protein Albumin Triglycerides Cholesterol LDL Cholesterol Direct HDL Cholesterol Urine WBC (Auto) Urine Creatinine Urine Total Protein Vancomycin Trough Rheumatoid Factor Complement C4 Crossmatch 10/04/16 10/04/16 10/04/16 06:30 11:45 17:54 WBC RBC Hgb Hct MCV MCH MCHC RDW Plt Count Lymph % (Auto) [place] % (Auto) Lymph # [place] # Seg Neutrophils % Seg Neuts % (Manual) Lymphocytes % (Manual) Monocytes % (Manual) Eosinophils % (Manual) Basophils % (Manual) Nucleated RBC % Seg Neutrophils # Seg Neutrophils # Man Lymphocytes # (Manual) Monocytes # (Manual) Eosinophils # (Manual) PT INR Fibrinogen dRVVT Confirm Interp Factor V Activity POC ABG pH POC ABG pCO2 POC ABG pO2 Sodium 128 L Potassium Chloride 87.4 L Carbon Dioxide 20 L BUN 34 H Creatinine 2.9 H Glucose 127 H POC Glucose 158 H 160 H Lactic Acid Calcium 7.4 L Phosphorus Magnesium Direct Bilirubin ALT Alkaline Phosphatase Troponin T C-Reactive Protein Total Protein Albumin Triglycerides Cholesterol LDL Cholesterol Direct HDL Cholesterol Urine WBC (Auto) Urine Creatinine Urine Total Protein Vancomycin Trough Rheumatoid Factor Complement C4 Crossmatch 10/04/16 10/05/16 10/05/16 23:25 04:30 05:00 WBC RBC 2.64 L Hgb 7.5 L Hct 22.6 L MCV MCH MCHC RDW 19.3 H Plt Count 80 L Lymph % (Auto) [place] % (Auto) Lymph # [place] # Seg Neutrophils % Seg Neuts % (Manual) Lymphocytes % (Manual) 12.0 L Monocytes % (Manual) Eosinophils % (Manual) Basophils % (Manual) Nucleated RBC % Seg Neutrophils # Seg Neutrophils # Man Lymphocytes # (Manual) Monocytes # (Manual) Eosinophils # (Manual) PT INR Fibrinogen dRVVT Confirm Interp Factor V Activity POC ABG pH 7.475 H POC ABG pCO2 33.3 L POC ABG pO2 140 H Sodium Potassium Chloride Carbon Dioxide BUN Creatinine Glucose POC Glucose 141 H Lactic Acid Calcium Phosphorus Magnesium Direct Bilirubin ALT Alkaline Phosphatase Troponin T C-Reactive Protein Total Protein Albumin Triglycerides Cholesterol LDL Cholesterol Direct HDL Cholesterol Urine WBC (Auto) Urine Creatinine Urine Total Protein Vancomycin Trough Rheumatoid Factor Complement C4 Crossmatch 10/05/16 10/05/16 10/05/16 05:00 05:09 12:58 WBC RBC Hgb Hct MCV MCH MCHC RDW Plt Count Lymph % (Auto) [place] % (Auto) Lymph # [place] # Seg Neutrophils % Seg Neuts % (Manual) Lymphocytes % (Manual) Monocytes % (Manual) Eosinophils % (Manual) Basophils % (Manual) Nucleated RBC % Seg Neutrophils # Seg Neutrophils # Man Lymphocytes # (Manual) Monocytes # (Manual) Eosinophils # (Manual) PT INR Fibrinogen dRVVT Confirm Interp Factor V Activity POC ABG pH POC ABG pCO2 POC ABG pO2 Sodium 131 L Potassium Chloride 94.0 L Carbon Dioxide 20 L BUN 22 H Creatinine 2.0 H Glucose 123 H POC Glucose 166 H 179 H Lactic Acid Calcium 7.7 L Phosphorus 2.20 L D Magnesium Direct Bilirubin ALT Alkaline Phosphatase Troponin T C-Reactive Protein Total Protein Albumin Triglycerides Cholesterol LDL Cholesterol Direct HDL Cholesterol Urine WBC (Auto) Urine Creatinine Urine Total Protein Vancomycin Trough Rheumatoid Factor Complement C4 Crossmatch 10/05/16 10/05/16 10/05/16 15:50 18:53 23:12 WBC RBC Hgb Hct MCV MCH MCHC RDW Plt Count Lymph % (Auto) [place] % (Auto) Lymph # [place] # Seg Neutrophils % Seg Neuts % (Manual) Lymphocytes % (Manual) Monocytes % (Manual) Eosinophils % (Manual) Basophils % (Manual) Nucleated RBC % Seg Neutrophils # Seg Neutrophils # Man Lymphocytes # (Manual) Monocytes # (Manual) Eosinophils # (Manual) PT INR Fibrinogen dRVVT Confirm Interp Factor V Activity POC ABG pH POC ABG pCO2 POC ABG pO2 Sodium Potassium Chloride Carbon Dioxide BUN Creatinine Glucose POC Glucose 150 H 164 H Lactic Acid Calcium Phosphorus Magnesium Direct Bilirubin ALT Alkaline Phosphatase Troponin T C-Reactive Protein Total Protein Albumin Triglycerides Cholesterol LDL Cholesterol Direct HDL Cholesterol Urine WBC (Auto) Urine Creatinine Urine Total Protein Vancomycin Trough Rheumatoid Factor Complement C4 Crossmatch See Detail 10/06/16 10/06/16 10/06/16 03:50 03:50 04:53 WBC RBC 3.00 L Hgb 8.6 L Hct 25.8 L MCV MCH MCHC RDW 17.9 H Plt Count 65 L Lymph % (Auto) [place] % (Auto) Lymph # [place] # Seg Neutrophils % Seg Neuts % (Manual) 30.0 L Lymphocytes % (Manual) 5.0 L Monocytes % (Manual) Eosinophils % (Manual) Basophils % (Manual) Nucleated RBC % Seg Neutrophils # Seg Neutrophils # Man Lymphocytes # (Manual) 0.4 L Monocytes # (Manual) Eosinophils # (Manual) PT INR Fibrinogen dRVVT Confirm Interp Factor V Activity POC ABG pH 7.310 L POC ABG pCO2 49.0 H POC ABG pO2 Sodium 133 L Potassium Chloride 95.9 L Carbon Dioxide BUN 26 H Creatinine 2.0 H Glucose 116 H POC Glucose Lactic Acid Calcium 7.8 L Phosphorus Magnesium Direct Bilirubin ALT Alkaline Phosphatase Troponin T C-Reactive Protein Total Protein Albumin Triglycerides Cholesterol LDL Cholesterol Direct HDL Cholesterol Urine WBC (Auto) Urine Creatinine Urine Total Protein Vancomycin Trough Rheumatoid Factor Complement C4 Crossmatch 10/06/16 10/06/16 10/06/16 05:23 11:52 18:34 WBC RBC Hgb Hct MCV MCH MCHC RDW Plt Count Lymph % (Auto) [place] % (Auto) Lymph # [place] # Seg Neutrophils % Seg Neuts % (Manual) Lymphocytes % (Manual) Monocytes % (Manual) Eosinophils % (Manual) Basophils % (Manual) Nucleated RBC % Seg Neutrophils # Seg Neutrophils # Man Lymphocytes # (Manual) Monocytes # (Manual) Eosinophils # (Manual) PT INR Fibrinogen dRVVT Confirm Interp Factor V Activity POC ABG pH POC ABG pCO2 POC ABG pO2 Sodium Potassium Chloride Carbon Dioxide BUN Creatinine Glucose POC Glucose 126 H 116 H 129 H Lactic Acid Calcium Phosphorus Magnesium Direct Bilirubin ALT Alkaline Phosphatase Troponin T C-Reactive Protein Total Protein Albumin Triglycerides Cholesterol LDL Cholesterol Direct HDL Cholesterol Urine WBC (Auto) Urine Creatinine Urine Total Protein Vancomycin Trough Rheumatoid Factor Complement C4 Crossmatch 10/07/16 10/07/16 10/07/16 05:00 10:00 10:00 WBC 17.0 H RBC 2.68 L Hgb 7.3 L Hct 25.3 L MCV MCH 27 L MCHC 29 L RDW 19.6 H Plt Count 74 L Lymph % (Auto) [place] % (Auto) Lymph # [place] # Seg Neutrophils % Seg Neuts % (Manual) Lymphocytes % (Manual) 12.0 L Monocytes % (Manual) Eosinophils % (Manual) Basophils % (Manual) Nucleated RBC % 4.0 H Seg Neutrophils # Seg Neutrophils # Man 10.7 H Lymphocytes # (Manual) Monocytes # (Manual) Eosinophils # (Manual) PT INR Fibrinogen dRVVT Confirm Interp Factor V Activity POC ABG pH POC ABG pCO2 POC ABG pO2 Sodium 130 L Potassium 3.2 L Chloride 93.9 L Carbon Dioxide 20 L BUN 44 H Creatinine 2.7 H Glucose 129 H POC Glucose Lactic Acid Calcium 7.4 L Phosphorus Magnesium Direct Bilirubin ALT 6 L Alkaline Phosphatase 195 H Troponin T C-Reactive Protein 19.40 H Total Protein 4.9 L Albumin 1.0 L Triglycerides Cholesterol LDL Cholesterol Direct HDL Cholesterol Urine WBC (Auto) Urine Creatinine Urine Total Protein Vancomycin Trough Rheumatoid Factor Complement C4 Crossmatch 10/07/16 10/07/16 10/07/16 11:24 18:10 18:30 WBC RBC Hgb Hct MCV MCH MCHC RDW Plt Count Lymph % (Auto) [place] % (Auto) Lymph # [place] # Seg Neutrophils % Seg Neuts % (Manual) Lymphocytes % (Manual) Monocytes % (Manual) Eosinophils % (Manual) Basophils % (Manual) Nucleated RBC % Seg Neutrophils # Seg Neutrophils # Man Lymphocytes # (Manual) Monocytes # (Manual) Eosinophils # (Manual) PT INR Fibrinogen dRVVT Confirm Interp Factor V Activity POC ABG pH POC ABG pCO2 POC ABG pO2 Sodium Potassium Chloride Carbon Dioxide BUN Creatinine Glucose POC Glucose 116 H 130 H Lactic Acid Calcium Phosphorus Magnesium Direct Bilirubin ALT Alkaline Phosphatase Troponin T C-Reactive Protein Total Protein Albumin Triglycerides Cholesterol LDL Cholesterol Direct HDL Cholesterol Urine WBC (Auto) > 182.0 H Urine Creatinine Urine Total Protein Vancomycin Trough Rheumatoid Factor Complement C4 Crossmatch 10/08/16 10/08/16 10/08/16 00:00 04:00 04:30 WBC RBC 5.15 H Hgb 14.4 H D Hct 44.5 H D MCV MCH MCHC RDW 19.5 H Plt Count 56 L Lymph % (Auto) [place] % (Auto) Lymph # [place] # Seg Neutrophils % Seg Neuts % (Manual) 24.0 L Lymphocytes % (Manual) 8.0 L Monocytes % (Manual) Eosinophils % (Manual) Basophils % (Manual) Nucleated RBC % 9.0 H Seg Neutrophils # Seg Neutrophils # Man Lymphocytes # (Manual) 0.7 L Monocytes # (Manual) Eosinophils # (Manual) PT INR Fibrinogen dRVVT Confirm Interp Factor V Activity POC ABG pH POC ABG pCO2 POC ABG pO2 Sodium 132 L Potassium 3.3 L Chloride 93.6 L Carbon Dioxide 17 L BUN 59 H Creatinine 2.7 H Glucose 121 H POC Glucose 122 H Lactic Acid Calcium 7.6 L Phosphorus Magnesium Direct Bilirubin ALT Alkaline Phosphatase Troponin T C-Reactive Protein Total Protein Albumin Triglycerides Cholesterol LDL Cholesterol Direct HDL Cholesterol Urine WBC (Auto) Urine Creatinine Urine Total Protein Vancomycin Trough Rheumatoid Factor Complement C4 Crossmatch 10/08/16 10/08/16 10/08/16 05:30 11:51 12:49 WBC RBC Hgb Hct MCV MCH MCHC RDW Plt Count Lymph % (Auto) [place] % (Auto) Lymph # [place] # Seg Neutrophils % Seg Neuts % (Manual) Lymphocytes % (Manual) Monocytes % (Manual) Eosinophils % (Manual) Basophils % (Manual) Nucleated RBC % Seg Neutrophils # Seg Neutrophils # Man Lymphocytes # (Manual) Monocytes # (Manual) Eosinophils # (Manual) PT INR Fibrinogen dRVVT Confirm Interp Factor V Activity POC ABG pH POC ABG pCO2 28.2 L POC ABG pO2 111 H Sodium Potassium Chloride Carbon Dioxide BUN Creatinine Glucose POC Glucose 125 H 150 H Lactic Acid Calcium Phosphorus Magnesium Direct Bilirubin ALT Alkaline Phosphatase Troponin T C-Reactive Protein Total Protein Albumin Triglycerides Cholesterol LDL Cholesterol Direct HDL Cholesterol Urine WBC (Auto) Urine Creatinine Urine Total Protein Vancomycin Trough Rheumatoid Factor Complement C4 Crossmatch 10/08/16 10/08/16 10/08/16 17:07 19:30 19:30 WBC RBC Hgb 7.1 L D Hct 22.4 L D MCV MCH MCHC RDW Plt Count Lymph % (Auto) [place] % (Auto) Lymph # [place] # Seg Neutrophils % Seg Neuts % (Manual) Lymphocytes % (Manual) Monocytes % (Manual) Eosinophils % (Manual) Basophils % (Manual) Nucleated RBC % Seg Neutrophils # Seg Neutrophils # Man Lymphocytes # (Manual) Monocytes # (Manual) Eosinophils # (Manual) PT 18.0 H INR 1.41 H Fibrinogen dRVVT Confirm Interp Factor V Activity POC ABG pH POC ABG pCO2 POC ABG pO2 Sodium Potassium Chloride Carbon Dioxide BUN Creatinine Glucose POC Glucose 145 H Lactic Acid Calcium Phosphorus Magnesium Direct Bilirubin ALT Alkaline Phosphatase Troponin T C-Reactive Protein Total Protein Albumin Triglycerides Cholesterol LDL Cholesterol Direct HDL Cholesterol Urine WBC (Auto) Urine Creatinine Urine Total Protein Vancomycin Trough Rheumatoid Factor Complement C4 Crossmatch 10/09/16 10/09/16 10/09/16 03:45 03:45 03:45 WBC 12.6 H RBC 2.36 L Hgb 6.7 L Hct 21.1 L MCV MCH MCHC RDW 19.5 H Plt Count 75 L Lymph % (Auto) [place] % (Auto) Lymph # [place] # Seg Neutrophils % Seg Neuts % (Manual) Lymphocytes % (Manual) Monocytes % (Manual) 10.0 H Eosinophils % (Manual) Basophils % (Manual) Nucleated RBC % 3.0 H Seg Neutrophils # Seg Neutrophils # Man Lymphocytes # (Manual) Monocytes # (Manual) 1.3 H Eosinophils # (Manual) PT 19.0 H INR 1.51 H Fibrinogen dRVVT Confirm Interp Factor V Activity POC ABG pH POC ABG pCO2 POC ABG pO2 Sodium 135 L Potassium Chloride Carbon Dioxide 17 L BUN 81 H Creatinine 3.2 H Glucose 109 H POC Glucose Lactic Acid Calcium 7.4 L Phosphorus 4.60 H D Magnesium Direct Bilirubin ALT Alkaline Phosphatase Troponin T C-Reactive Protein Total Protein Albumin Triglycerides Cholesterol LDL Cholesterol Direct HDL Cholesterol Urine WBC (Auto) Urine Creatinine Urine Total Protein Vancomycin Trough Rheumatoid Factor Complement C4 Crossmatch 10/09/16 10/09/16 10/09/16 05:14 07:20 11:46 WBC RBC Hgb Hct MCV MCH MCHC RDW Plt Count Lymph % (Auto) [place] % (Auto) Lymph # [place] # Seg Neutrophils % Seg Neuts % (Manual) Lymphocytes % (Manual) Monocytes % (Manual) Eosinophils % (Manual) Basophils % (Manual) Nucleated RBC % Seg Neutrophils # Seg Neutrophils # Man Lymphocytes # (Manual) Monocytes # (Manual) Eosinophils # (Manual) PT INR Fibrinogen dRVVT Confirm Interp Factor V Activity POC ABG pH POC ABG pCO2 POC ABG pO2 Sodium Potassium Chloride Carbon Dioxide BUN Creatinine Glucose POC Glucose 151 H 133 H Lactic Acid Calcium Phosphorus Magnesium Direct Bilirubin ALT Alkaline Phosphatase Troponin T C-Reactive Protein Total Protein Albumin Triglycerides Cholesterol LDL Cholesterol Direct HDL Cholesterol Urine WBC (Auto) Urine Creatinine Urine Total Protein Vancomycin Trough Rheumatoid Factor Complement C4 Crossmatch See Detail Allied health notes reviewed: RT
--- NOTE | 2016-10-09 14:47 | Progress Note ---
Assessment and Plan - Patient Problems (1) Acute respiratory failure with hypoxia Current Visit: Yes Status: Acute (2) Dislodged gastrostomy tube Current Visit: Yes Status: Acute Plan to address problem: continue local wound care and JUAN to drainage NPO TPN Antibiotics GI consult pending Subjective Date of service: 10/09/16 Patient Reports: Positive: other (on vent; + bloody BMs per nurse) Objective Vital Signs - 12hr 10/09/16 10/09/16 10/09/16 03:00 03:30 03:58 Temperature Pulse Rate 83 82 90 Pulse Rate [ From Monitor] Respiratory Rate Respiratory Rate [ Generalized] Blood Pressure 159/74 178/101 159/74 O2 Sat by Pulse 100 100 100 Oximetry O2 Sat by Pulse Oximetry [ Assessment] 10/09/16 10/09/16 10/09/16 04:00 04:30 05:00 Temperature Pulse Rate 97 H 80 79 Pulse Rate [ From Monitor] Respiratory Rate Respiratory 27 H Rate [ Generalized] Blood Pressure 202/93 159/74 124/58 O2 Sat by Pulse 100 100 100 Oximetry O2 Sat by Pulse 100 Oximetry [ Assessment] 10/09/16 10/09/16 10/09/16 05:30 06:00 06:30 Temperature Pulse Rate 78 80 79 Pulse Rate [ From Monitor] Respiratory Rate Respiratory Rate [ Generalized] Blood Pressure 202/93 122/57 122/57 O2 Sat by Pulse 100 100 100 Oximetry O2 Sat by Pulse Oximetry [ Assessment] 10/09/16 10/09/16 10/09/16 07:00 07:30 07:52 Temperature Pulse Rate 71 86 75 Pulse Rate [ From Monitor] Respiratory 18 Rate Respiratory Rate [ Generalized] Blood Pressure 107/48 107/48 107/48 O2 Sat by Pulse 100 100 100 Oximetry O2 Sat by Pulse Oximetry [ Assessment] 10/09/16 10/09/16 10/09/16 08:00 08:30 08:55 Temperature 98.2 F Pulse Rate 93 H 78 Pulse Rate [ 93 H From Monitor] Respiratory 28 H Rate Respiratory Rate [ Generalized] Blood Pressure 170/80 170/80 O2 Sat by Pulse 100 100 Oximetry O2 Sat by Pulse 100 Oximetry [ Assessment] 10/09/16 10/09/16 10/09/16 09:00 09:19 09:31 Temperature Pulse Rate 94 H 86 75 Pulse Rate [ From Monitor] Respiratory Rate Respiratory Rate [ Generalized] Blood Pressure 191/79 191/79 170/80 O2 Sat by Pulse 100 100 Oximetry O2 Sat by Pulse Oximetry [ Assessment] 10/09/16 10/09/16 10/09/16 10:00 10:31 11:00 Temperature Pulse Rate 78 74 81 Pulse Rate [ From Monitor] Respiratory Rate Respiratory Rate [ Generalized] Blood Pressure 113/49 172/79 121/61 O2 Sat by Pulse 100 100 100 Oximetry O2 Sat by Pulse Oximetry [ Assessment] 10/09/16 10/09/16 10/09/16 11:31 11:50 12:00 Temperature 97.6 F Pulse Rate 90 88 72 Pulse Rate [ From Monitor] Respiratory 21 Rate Respiratory Rate [ Generalized] Blood Pressure 121/61 193/96 118/59 O2 Sat by Pulse 100 100 100 Oximetry O2 Sat by Pulse Oximetry [ Assessment] 10/09/16 10/09/16 10/09/16 12:31 13:00 13:31 Temperature Pulse Rate 92 H 73 93 H Pulse Rate [ From Monitor] Respiratory Rate Respiratory Rate [ Generalized] Blood Pressure 118/59 117/57 117/57 O2 Sat by Pulse 100 100 100 Oximetry O2 Sat by Pulse Oximetry [ Assessment] - Abdomen soft, other (G tube site with packing-no purulence; JUAN serous) - Labs 10/09/16 03:45 10/09/16 03:45 Diabetes panel 10/09/16 Range/Units 03:45 Sodium 135 L (137-145) mmol/L Potassium 4.0 D (3.6-5.0) mmol/L Chloride 98.6 (98-107) mmol/L Carbon Dioxide 17 L (22-30) mmol/L BUN 81 H (7-17) mg/dL Creatinine 3.2 H (0.7-1.2) mg/dL Glucose 109 H (65-100) mg/dL Calcium 7.4 L (8.4-10.2) mg/dL Calcium panel 10/09/16 Range/Units 03:45 Calcium 7.4 L (8.4-10.2) mg/dL Phosphorus 4.60 H D (2.5-4.5) mg/dL Pituitary panel 10/09/16 Range/Units 03:45 Sodium 135 L (137-145) mmol/L Potassium 4.0 D (3.6-5.0) mmol/L Chloride 98.6 (98-107) mmol/L Carbon Dioxide 17 L (22-30) mmol/L BUN 81 H (7-17) mg/dL Creatinine 3.2 H (0.7-1.2) mg/dL Glucose 109 H (65-100) mg/dL Calcium 7.4 L (8.4-10.2) mg/dL Adrenal panel 10/09/16 Range/Units 03:45 Sodium 135 L (137-145) mmol/L Potassium 4.0 D (3.6-5.0) mmol/L Chloride 98.6 (98-107) mmol/L Carbon Dioxide 17 L (22-30) mmol/L BUN 81 H (7-17) mg/dL Creatinine 3.2 H (0.7-1.2) mg/dL Glucose 109 H (65-100) mg/dL Calcium 7.4 L (8.4-10.2) mg/dL
[2016-10-09 16:54] LABS: Hematocrit 22.2 % (30.3-42.9); Hemoglobin 7.2 gm/dl (10.1-14.3)
--- NOTE | 2016-10-09 17:44 | Progress Note ---
Assessment and Plan Assessment and plan: 1. Acute hypoxic respiratory failure On mechanical ventilation Status post trach 2. Acute massive left MCA CVA Status post TPA Aspirin/statin Supportive care 3. Encephalopathy Multifactorial, treating underlying conditions 4. Recurrent sepsis with septic shock Presumed aspiration pneumonia/, UTI/candidemia/peritonitis due to gastric perforation from dislodged PEG Off pressors now Antibiotic/antifungals per ID recommendation 5. Dislodged PEG Status post wedge gastrectomy repair of gastric perforation, abdominal washout and drain placement Surgery following 6. Acute blood loss anemia requiring multiple PRBC transfusions Monitor H&H closely, transfuse as needed 7. Thrombocytopenia Monitor 8. Acute on chronic renal failure If further worsening, nephrology considers dialysis 9. Electrolyte imbalances Replete, recheck 10. Paroxysmal A. fib Status post failed conversion on 09/25 Amiodarone drip No anticoagulation due to anemia/thrombocytopenia, massive CVA 11. Diabetes Insulin/SSI 12. Severe protein caloric malnutrition Currently on TPN 13. Extensive back skin peeling 14. DVT prophylaxis SCDs, no pharmacological agent given anemia requiring multiple PRBC transfusions , thrombocytopenia, massive stroke 15. FULL Code 16. Poor prognosis History Interval history: per nursing report large amount of clots in her stool overnight Hospitalist Physical - Constitutional Vitals: Temp Pulse Resp BP Pulse Ox 97.7 F 87 27 H 165/90 100 10/09/16 16:00 10/09/16 17:00 10/09/16 16:03 10/09/16 17:00 10/09/16 17:00 General appearance: Present: mild distress, obese, other (on vent, non- responsive) - Neck Neck: Present: other (trach in place). Absent: enlarged thyroid, masses or JVD - Respiratory Respiratory effort: other (on event) Respiratory: bilateral: diminished, rhonchi, negative: wheezing - Cardiovascular Rhythm: irregularly irregular Heart Sounds: Present: S1 & S2. Absent: systolic murmur - Extremities Extremities: no ischemia Extremity abnormal: edema - Abdominal General gastrointestinal: soft, non-distended, hypoactive bowel sounds, other ( drain in place) - Psychiatric Psychiatric: other (unresponsive) Results - Labs CBC & Chem 7: 10/09/16 16:20 10/09/16 03:45 Labs: Laboratory Last Values WBC 12.6 K/mm3 (4.5-11.0) H 10/09/16 03:45 RBC 2.36 M/mm3 (3.65-5.03) L 10/09/16 03:45 Hgb 7.2 gm/dl (10.1-14.3) L 10/09/16 16:20 Hct 22.2 % (30.3-42.9) L 10/09/16 16:20 MCV 89 fl (79-97) 10/09/16 03:45 MCH 28 pg (28-32) 10/09/16 03:45 MCHC 32 % (30-34) 10/09/16 03:45 RDW 19.5 % (13.2-15.2) H 10/09/16 03:45 Plt Count 75 K/mm3 (140-440) L 10/09/16 03:45 Lymph % (Auto) 6.9 % (13.4-35.0) L 09/21/16 07:45 [place] % (Auto) 0.5 % (0.0-7.3) 10/03/16 05:10 Eos % (Auto) 1.3 % (0.0-4.3) 10/03/16 05:10 Baso % (Auto) 0.2 % (0.0-1.8) 09/21/16 07:45 Lymph # 0.9 K/mm3 (1.2-5.4) L 09/21/16 07:45 [place] # 0.1 K/mm3 (0.0-0.8) 10/03/16 05:10 Eos # 0.2 K/mm3 (0.0-0.4) 10/03/16 05:10 Baso # 0.0 K/mm3 (0.0-0.1) 10/03/16 05:10 Add Manual Diff Complete 10/09/16 03:45 Total Counted 100 10/09/16 03:45 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7) H 10/03/16 05:10 Seg Neutrophils # Man 6.8 K/mm3 (1.8-7.7) 10/09/16 03:45 Band Neutrophils # 2.5 K/mm3 10/09/16 03:45 Lymphocytes # (Manual) 1.9 K/mm3 (1.2-5.4) 10/09/16 03:45 Abs React Lymphs (Man) 0.0 K/mm3 10/09/16 03:45 Monocytes # (Manual) 1.3 K/mm3 (0.0-0.8) H 10/09/16 03:45 Eosinophils # (Manual) 0.0 K/mm3 (0.0-0.4) 10/09/16 03:45 Basophils # (Manual) 0.0 K/mm3 (0.0-0.1) 10/09/16 03:45 Metamyelocytes # 0.1 K/mm3 10/09/16 03:45 Myelocytes # 0.0 K/mm3 10/09/16 03:45 Promyelocytes # 0.0 K/mm3 10/09/16 03:45 Blast Cells # 0.0 K/mm3 10/09/16 03:45 Pathologist Review 09/13/16 04:00 WBC Morphology Not Reportable 10/09/16 03:45 Hypersegmented Neuts Not Reportable 10/09/16 03:45 Hyposegmented Neuts Not Reportable 10/09/16 03:45 Hypogranular Neuts Not Reportable 10/09/16 03:45 Smudge Cells Not Reportable 10/09/16 03:45 Toxic Granulation Not Reportable 10/09/16 03:45 Toxic Vacuolation Not Reportable 10/09/16 03:45 Dohle Bodies Not Reportable 10/09/16 03:45 Pelger-Huet Anomaly Not Reportable 10/09/16 03:45 Jasmina Rods Not Reportable 10/09/16 03:45 Platelet Estimate Consistent w auto 10/09/16 03:45 Clumped Platelets Not Reportable 10/09/16 03:45 Plt Clumps, EDTA Not Reportable 10/09/16 03:45 Large Platelets Not Reportable 10/09/16 03:45 Giant Platelets Not Reportable 10/09/16 03:45 Platelet Satelliting Not Reportable 10/09/16 03:45 Plt Morphology Comment Not Reportable 10/09/16 03:45 RBC Morphology Not Reportable 10/09/16 03:45 Dimorphic RBCs Not Reportable 10/09/16 03:45 Polychromasia Rare 10/09/16 03:45 Hypochromasia 1+ 10/09/16 03:45 Poikilocytosis Not Reportable 10/09/16 03:45 Anisocytosis 1+ 10/09/16 03:45 Microcytosis Not Reportable 10/09/16 03:45 Macrocytosis 1+ 10/09/16 03:45 Spherocytes Not Reportable 10/09/16 03:45 Pappenheimer Bodies Not Reportable 10/09/16 03:45 Sickle Cells Not Reportable 10/09/16 03:45 Target Cells Not Reportable 10/09/16 03:45 Tear Drop Cells Not Reportable 10/09/16 03:45 Ovalocytes Not Reportable 10/09/16 03:45 Stomatocytes Few 10/06/16 03:50 Helmet Cells Not Reportable 10/09/16 03:45 Monet-Fronton Bodies Not Reportable 10/09/16 03:45 [place] Rings Not Reportable 10/09/16 03:45 [place] Cells Not Reportable 10/09/16 03:45 Bite Cells Not Reportable 10/09/16 03:45 Crenated Cell Not Reportable 10/09/16 03:45 Elliptocytes Not Reportable 10/09/16 03:45 Acanthocytes (Spur) Not Reportable 10/09/16 03:45 Rouleaux Not Reportable 10/09/16 03:45 Hemoglobin C Crystals Not Reportable 10/09/16 03:45 Schistocytes Not Reportable 10/09/16 03:45 Malaria parasites Not Reportable 10/09/16 03:45 ESR > 140.0 mm/Hr (0-20) 09/08/16 11:48 Jun Bodies Not Reportable 10/09/16 03:45 Hem Pathologist Commnt No 10/09/16 03:45 PT 19.0 Sec. (12.2-14.9) H 10/09/16 03:45 INR 1.51 (0.87-1.13) H 10/09/16 03:45 APTT 33.0 Sec. (24.2-36.6) 10/09/16 03:45 Thrombin Time 16.8 Sec. (15.1-19.6) 09/03/16 00:10 Fibrinogen 750 mg/dl (211-480) H 09/08/16 11:48 Lupus Anticoagulant see below 09/12/16 09:59 LA PTT Baseline See scanned report 09/12/16 09:59 dRVVT Confirm Interp Positive (Negative) H 09/12/16 09:59 dRVVT Screen 50:50 See scanned report 09/12/16 09:59 dRVVT Mix Interpret See scanned report 09/12/16 09:59 Protein C Antigen 122 % (70-140) 09/08/16 15:35 Free Protein S 97 % normal (50-147) 09/08/16 15:35 Total Protein S 109 % (70-140) 09/08/16 15:35 Antithrombin III Ag 100 % (80-120) 09/08/16 15:35 Heparin Anti-Xa, Unfract Negative (Negative) 09/29/16 13:35 Factor V Activity 182 % (65-150) H 09/08/16 15:35 POC ABG pH 7.437 (7.35-7.45) 10/08/16 12:49 POC ABG pCO2 28.2 (35-45) L 10/08/16 12:49 POC ABG pO2 111 (80-105) H 10/08/16 12:49 POC ABG HCO3 19.0 10/08/16 12:49 POC ABG Total CO2 20 10/08/16 12:49 POC ABG O2 Sat 99 10/08/16 12:49 POC ABG Base Excess -5 10/08/16 12:49 FiO2 28 % 10/08/16 12:49 Sodium 135 mmol/L (137-145) L 10/09/16 03:45 Potassium 4.0 mmol/L (3.6-5.0) D 10/09/16 03:45 Chloride 98.6 mmol/L (98-107) 10/09/16 03:45 Carbon Dioxide 17 mmol/L (22-30) L 10/09/16 03:45 Anion Gap 23 mmol/L 10/09/16 03:45 BUN 81 mg/dL (7-17) H 10/09/16 03:45 Creatinine 3.2 mg/dL (0.7-1.2) H 10/09/16 03:45 Estimated GFR 19 ml/min 10/09/16 03:45 BUN/Creatinine Ratio 25.31 % 10/09/16 03:45 Glucose 109 mg/dL (65-100) H 10/09/16 03:45 POC Glucose 141 (70-105) H 10/09/16 16:43 Osmolality 351 Mosm/kg 09/16/16 11:47 Lactic Acid 4.50 mmol/L (0.7-2.0) H* 09/28/16 07:25 Calcium 7.4 mg/dL (8.4-10.2) L 10/09/16 03:45 Phosphorus 4.60 mg/dL (2.5-4.5) H D 10/09/16 03:45 Magnesium 2.20 mg/dL (1.7-2.3) 10/09/16 03:45 Total Bilirubin 0.60 mg/dL (0.1-1.2) 10/07/16 10:00 Direct Bilirubin 0.9 mg/dL (0-0.2) H 09/29/16 06:45 Indirect Bilirubin 0.3 mg/dL 09/29/16 06:45 AST 32 units/L (5-40) 10/07/16 10:00 ALT 6 units/L (7-56) L 10/07/16 10:00 Alkaline Phosphatase 195 units/L (35-129) H 10/07/16 10:00 Ammonia 27.0 umol/L (25-60) 09/07/16 08:37 Total Creatine Kinase 121 units/L (30-135) 09/29/16 20:12 CK-MB (CK-2) < 1.0 ng/mL (0.0-4.0) 09/29/16 20:12 CK-MB (CK-2) Rel Index 0.8 (0-4) 09/29/16 20:12 Troponin T 0.204 ng/mL (0.00-0.029) H* 09/29/16 20:12 C-Reactive Protein 19.40 mg/dL (0.00-1.30) H 10/07/16 10:00 Total Protein 4.9 g/dL (6.3-8.2) L 10/07/16 10:00 Albumin 1.0 g/dL (3.9-5) L 10/07/16 10:00 Albumin/Globulin Ratio 0.3 % 10/07/16 10:00 Triglycerides 137 mg/dL (2-149) 09/29/16 20:12 Cholesterol 31 mg/dL (50-199) L 09/29/16 20:12 LDL Cholesterol Direct 4 mg/dL (50-130) L 09/29/16 20:12 HDL Cholesterol 3 mg/dL (40-59) L 09/29/16 20:12 Cholesterol/HDL Ratio 10.33 % 09/29/16 20:12 Angiotensin Convert Enz See scanned report 09/08/16 11:48 Serotonin Release Assay See scanned report 09/29/16 13:35 TSH 1.010 mlU/mL (0.270-4.200) 09/07/16 08:37 HCG, Qual Negative (Negative) 09/03/16 00:10 Urine Color [place] (Yellow) 10/07/16 18:30 Urine Turbidity Turbid (Clear) 10/07/16 18:30 Urine pH 7.0 (5.0-7.0) 10/07/16 18:30 Ur Specific [place] 1.012 (1.003-1.030) 10/07/16 18:30 Urine Protein 100 mg/dl mg/dL (Negative) 10/07/16 18:30 Urine Glucose (UA) Neg mg/dL (Negative) 10/07/16 18:30 Urine Ketones Neg mg/dL (Negative) 10/07/16 18:30 Urine Blood Lg (Negative) 10/07/16 18:30 Urine Nitrite Neg (Negative) 10/07/16 18:30 Urine Bilirubin Neg (Negative) 10/07/16 18:30 Urine Urobilinogen < 2.0 mg/dL (<2.0) 10/07/16 18:30 Ur Leukocyte Esterase Lg (Negative) 10/07/16 18:30 Urine WBC (Auto) > 182.0 /HPF (0.0-6.0) H 10/07/16 18:30 Urine RBC (Auto) > 182.0 /HPF (0.0-6.0) 10/07/16 18:30 U Epithel Cells (Auto) 1.0 /HPF (0-13.0) 10/07/16 18:30 Urine Bacteria (Auto) 3+ /HPF (Negative) 10/07/16 18:30 Urine WBC Clumps 2+ /HPF 09/07/16 02:47 Hyaline Casts 4 /LPF 09/07/16 02:47 Urine Mucus Few /HPF 10/07/16 18:30 Urine Yeast (Budding) 3+ /HPF 10/07/16 18:30 Urine Eosinophils None seen (None Seen) 09/07/16 16:00 Urine Total Volume 1350 09/21/16 12:00 Urine Creatinine 54.8 mg/dL (0.1-20.0) H 09/21/16 12:00 Height (in) 67.0 inches 09/21/16 12:00 Weight (lb) 92.0 lbs 09/21/16 12:00 Creatinine Clearance 09/21/16 12:00 Urine Sodium 36 mEq/L 09/16/16 19:19 Urine Total Protein 16 mg/dL (5-11.8) H 09/16/16 19:19 Vancomycin Trough 2.3 ug/mL (5.0-20.0) L 09/21/16 13:00 Random Vancomycin 2.3 ug/mL (0-40.0) 09/09/16 03:00 Urine Opiates Screen Presumptive negative 09/03/16 15:11 Urine Methadone Screen Presumptive positive 09/03/16 15:11 Ur Barbiturates Screen Presumptive positive 09/03/16 15:11 Ur Phencyclidine Scrn Presumptive negative 09/03/16 15:11 Ur Amphetamines Screen Presumptive negative 09/03/16 15:11 U Benzodiazepines Scrn Presumptive negative 09/03/16 15:11 Urine Cocaine Screen Presumptive negative 09/03/16 15:11 U Marijuana (THC) Screen Presumptive positive 09/03/16 15:11 Drugs of Abuse Note Disclamer 09/03/16 15:11 Rheumatoid Factor 24 IU/ml (0-13) H 09/08/16 11:48 SAHIL Screen Negative (Negative) 09/07/16 09:20 Proteinase 3 (PR3) Ab <1.0 AI (<1.0) 09/07/16 09:20 Myeloperoxidase Ab <1.0 AI (<1.0) 09/07/16 09:20 Sjogren's Antibody <1.0 AI (<1.0) 09/08/16 15:35 Scl-70 Scleroderma Ab <1.0 AI (<1.0) 09/08/16 15:35 Centromere B Antibody <1.0 AI (<1.0) 09/08/16 12:02 Heparin-induced Plt Ab Negative (Negative) 09/29/16 13:35 UF Heparin High Dose 11 % Release 09/29/16 13:35 SUDHIR UFH Low Dose 0.1 6 % Release 09/29/16 13:35 SUDHIR UFH Low Dose 0.5 8 % Release 09/29/16 13:35 Cardiolipid IgG Ab <14 GPL (<=14) 09/12/16 09:59 Cardiolipid IgA Ab <11 APL (<=11) 09/12/16 09:59 Cardiolipid IgM Ab <12 MPL (<=12) 09/12/16 09:59 Complement C3 148 mg/dL (90-180) 09/07/16 09:20 Complement C4 58 mg/dL (16-47) H 09/07/16 09:20 RPR Nonreactive (Nonreactive) 09/08/16 11:48 Hepatitis A IgM Ab Non-reactive (NonReactive) 09/24/16 14:40 Hep Bs Antigen Non-reactive (Negative) 09/24/16 14:40 Hep B Core IgM Ab Non-reactive (NonReactive) 09/24/16 14:40 Hepatitis C Antibody Non-reactive (NonReactive) 09/24/16 14:40 HIV 1&2 Antibody Rapid Non react (Non React) 09/08/16 11:48 HIV P24 Antigen Non react (Non React) 09/08/16 11:48 Blood Type A POSITIVE 10/09/16 07:20 Antibody Screen Negative 10/09/16 07:20 DELORIS Antibody Screen Negative 09/25/16 10:30 Crossmatch See Detail 10/09/16 07:20
[2016-10-09] MEDS: MYCAMINE 100 MG in NACL 0.9% 100 ML IV SCH (20:53)
[2016-10-09] MEDS: TPN ADULT 2,016 ML IV SCH (20:54)
--- NOTE | 2016-10-09 23:52 | Gastroenterology Progress Note ---
Assessment and Plan Hematochezia - vital signs and H/H stable. Blood in diaper (small amounts at time of exam), and pt with skin injury with bleeding on back as well. H/H mostly stable but has received 1 unit of blood. She has had recent complications related to peg tube and is NPO with NG tube to LIS. Prep would be difficult in this situation. would obtain bleeding scan for any further episodes of gi bleed. If hematochezia persists, consider enemas and flex sig, but will monitor for time being as she appears relatively stable. Subjective Date of service: 10/09/16 Principal diagnosis: Acute resp failure on MVS; S/P Acute CVA; Acute Encephalopathy; JUANITA Interval history: pt known to GI service, previously consulted for anemia. she remains intubated in the ICU. called back after large amts of blood was found in her diaper. Patient first noticed to have blood in her diaper yesterday, and again this afternoon. The blood is bright appearing. He also had appearance of stool mixed with blood. H/H stable Objective - Exam Narrative Exam: Gen: intubated/sedated, CV: RRR Lungs: coarse bs bilaterally Abd: soft, mild dist, nt - Constitutional Vitals: Temp Pulse Resp BP Pulse Ox 98.7 F 96 H 25 H 171/90 100 10/09/16 20:00 10/09/16 19:27 10/09/16 19:27 10/09/16 19:27 10/09/16 19:27 - Labs CBC & Chem 7: 10/10/16 05:00 10/10/16 05:00 Labs: Laboratory Results - last 24 hr 09/25/16 10/08/16 10/09/16 10:30 23:41 03:45 WBC 12.6 H RBC 2.36 L Hgb 6.7 L Hct 21.1 L MCV 89 MCH 28 MCHC 32 RDW 19.5 H Plt Count 75 L Add Manual Diff Complete Total Counted 100 Seg Neuts % (Manual) 54.0 Band Neutrophils % 20.0 Lymphocytes % (Manual) 15.0 Reactive Lymphs % (Man) 0 Monocytes % (Manual) 10.0 H Eosinophils % (Manual) 0 Basophils % (Manual) 0 Metamyelocytes % 1.0 Myelocytes % 0 Promyelocytes % 0 Blast Cells % 0 Nucleated RBC % 3.0 H Seg Neutrophils # Man 6.8 Band Neutrophils # 2.5 Lymphocytes # (Manual) 1.9 Abs React Lymphs (Man) 0.0 Monocytes # (Manual) 1.3 H Eosinophils # (Manual) 0.0 Basophils # (Manual) 0.0 Metamyelocytes # 0.1 Myelocytes # 0.0 Promyelocytes # 0.0 Blast Cells # 0.0 WBC Morphology Not Reportable Hypersegmented Neuts Not Reportable Hyposegmented Neuts Not Reportable Hypogranular Neuts Not Reportable Smudge Cells Not Reportable Toxic Granulation Not Reportable Toxic Vacuolation Not Reportable Dohle Bodies Not Reportable Pelger-Huet Anomaly Not Reportable Jasmina Rods Not Reportable Platelet Estimate Consistent w auto Clumped Platelets Not Reportable Plt Clumps, EDTA Not Reportable Large Platelets Not Reportable Giant Platelets Not Reportable Platelet Satelliting Not Reportable Plt Morphology Comment Not Reportable RBC Morphology Not Reportable Dimorphic RBCs Not Reportable Polychromasia Rare Hypochromasia 1+ Poikilocytosis Not Reportable Anisocytosis 1+ Microcytosis Not Reportable Macrocytosis 1+ Spherocytes Not Reportable Pappenheimer Bodies Not Reportable Sickle Cells Not Reportable Target Cells Not Reportable Tear Drop Cells Not Reportable Ovalocytes Not Reportable Helmet Cells Not Reportable Monet-Pollock Bodies Not Reportable [place] Rings Not Reportable [place] Cells Not Reportable Bite Cells Not Reportable Crenated Cell Not Reportable Elliptocytes Not Reportable Acanthocytes (Spur) Not Reportable Rouleaux Not Reportable Hemoglobin C Crystals Not Reportable Schistocytes Not Reportable Malaria parasites Not Reportable Jun Bodies Not Reportable Hem Pathologist Commnt No PT INR APTT Sodium Potassium Chloride Carbon Dioxide Anion Gap BUN Creatinine Estimated GFR BUN/Creatinine Ratio Glucose POC Glucose 87 Calcium Phosphorus Magnesium Blood Type Antibody Screen Crossmatch See Detail 10/09/16 10/09/16 10/09/16 03:45 03:45 05:14 WBC RBC Hgb Hct MCV MCH MCHC RDW Plt Count Add Manual Diff Total Counted Seg Neuts % (Manual) Band Neutrophils % Lymphocytes % (Manual) Reactive Lymphs % (Man) Monocytes % (Manual) Eosinophils % (Manual) Basophils % (Manual) Metamyelocytes % Myelocytes % Promyelocytes % Blast Cells % Nucleated RBC % Seg Neutrophils # Man Band Neutrophils # Lymphocytes # (Manual) Abs React Lymphs (Man) Monocytes # (Manual) Eosinophils # (Manual) Basophils # (Manual) Metamyelocytes # Myelocytes # Promyelocytes # Blast Cells # WBC Morphology Hypersegmented Neuts Hyposegmented Neuts Hypogranular Neuts Smudge Cells Toxic Granulation Toxic Vacuolation Dohle Bodies Pelger-Huet Anomaly Jasmina Rods Platelet Estimate Clumped Platelets Plt Clumps, EDTA Large Platelets Giant Platelets Platelet Satelliting Plt Morphology Comment RBC Morphology Dimorphic RBCs Polychromasia Hypochromasia Poikilocytosis Anisocytosis Microcytosis Macrocytosis Spherocytes Pappenheimer Bodies Sickle Cells Target Cells Tear Drop Cells Ovalocytes Helmet Cells Monet-Pollock Bodies [place] Rings [place] Cells Bite Cells Crenated Cell Elliptocytes Acanthocytes (Spur) Rouleaux Hemoglobin C Crystals Schistocytes Malaria parasites Jun Bodies Hem Pathologist Commnt PT 19.0 H INR 1.51 H APTT 33.0 Sodium 135 L Potassium 4.0 D Chloride 98.6 Carbon Dioxide 17 L Anion Gap 23 BUN 81 H Creatinine 3.2 H Estimated GFR 19 BUN/Creatinine Ratio 25.31 Glucose 109 H POC Glucose 151 H Calcium 7.4 L Phosphorus 4.60 H D Magnesium 2.20 Blood Type Antibody Screen Crossmatch 10/09/16 10/09/16 10/09/16 07:20 11:46 16:20 WBC RBC Hgb 7.2 L Hct 22.2 L MCV MCH MCHC RDW Plt Count Add Manual Diff Total Counted Seg Neuts % (Manual) Band Neutrophils % Lymphocytes % (Manual) Reactive Lymphs % (Man) Monocytes % (Manual) Eosinophils % (Manual) Basophils % (Manual) Metamyelocytes % Myelocytes % Promyelocytes % Blast Cells % Nucleated RBC % Seg Neutrophils # Man Band Neutrophils # Lymphocytes # (Manual) Abs React Lymphs (Man) Monocytes # (Manual) Eosinophils # (Manual) Basophils # (Manual) Metamyelocytes # Myelocytes # Promyelocytes # Blast Cells # WBC Morphology Hypersegmented Neuts Hyposegmented Neuts Hypogranular Neuts Smudge Cells Toxic Granulation Toxic Vacuolation Dohle Bodies Pelger-Huet Anomaly Jasmina Rods Platelet Estimate Clumped Platelets Plt Clumps, EDTA Large Platelets Giant Platelets Platelet Satelliting Plt Morphology Comment RBC Morphology Dimorphic RBCs Polychromasia Hypochromasia Poikilocytosis Anisocytosis Microcytosis Macrocytosis Spherocytes Pappenheimer Bodies Sickle Cells Target Cells Tear Drop Cells Ovalocytes Helmet Cells Monet-Pollock Bodies [place] Cells Bite Cells Crenated Cell Elliptocytes Acanthocytes (Spur) Rouleaux Hemoglobin C Crystals Schistocytes Malaria parasites Jun Bodies Hem Pathologist Commnt PT INR APTT Sodium Potassium Chloride Carbon Dioxide Anion Gap BUN Creatinine Estimated GFR BUN/Creatinine Ratio Glucose POC Glucose 133 H Calcium Phosphorus Magnesium Blood Type A POSITIVE Antibody Screen Negative Crossmatch See Detail 10/09/16 16:43 WBC RBC Hgb Hct MCV MCH MCHC RDW Plt Count Add Manual Diff Total Counted Seg Neuts % (Manual) Band Neutrophils % Lymphocytes % (Manual) Reactive Lymphs % (Man) Monocytes % (Manual) Eosinophils % (Manual) Basophils % (Manual) Metamyelocytes % Myelocytes % Promyelocytes % Blast Cells % Nucleated RBC % Seg Neutrophils # Man Band Neutrophils # Lymphocytes # (Manual) Abs React Lymphs (Man) Monocytes # (Manual) Eosinophils # (Manual) Basophils # (Manual) Metamyelocytes # Myelocytes # Promyelocytes # Blast Cells # WBC Morphology Hypersegmented Neuts Hyposegmented Neuts Hypogranular Neuts Smudge Cells Toxic Granulation Toxic Vacuolation Dohle Bodies Pelger-Huet Anomaly Jasmina Rods Platelet Estimate Clumped Platelets Plt Clumps, EDTA Large Platelets Giant Platelets Platelet Satelliting Plt Morphology Comment RBC Morphology Dimorphic RBCs Polychromasia Hypochromasia Poikilocytosis Anisocytosis Microcytosis Macrocytosis Spherocytes Pappenheimer Bodies Sickle Cells Target Cells Tear Drop Cells Ovalocytes Helmet Cells Monet-Pollock Bodies [place] Cells Bite Cells Crenated Cell Elliptocytes Acanthocytes (Spur) Rouleaux Hemoglobin C Crystals Schistocytes Malaria parasites Jun Bodies Hem Pathologist Commnt PT INR APTT Sodium Potassium Chloride Carbon Dioxide Anion Gap BUN Creatinine Estimated GFR BUN/Creatinine Ratio Glucose POC Glucose 141 H Calcium Phosphorus Magnesium Blood Type Antibody Screen Crossmatch
[2016-10-10] MEDS: HumuLIN R SUB-Q SCH ×4 (00:50→19:30)
[2016-10-10] MEDS: NORMODYNE IV PRN (02:42)
[2016-10-10] MEDS: fentaNYL DRIP Premix 2,000 MCG/100 ML BAG IV SCH (06:09)
[2016-10-10] MEDS: ZOSYN/NS 2.25 GM/50ML 2.25 GM/50 ML BAG IV SCH ×3 (06:09→22:52)
[2016-10-10 06:14] LABS: Hemoglobin 6.4 gm/dl (10.1-14.3); Mean Corpuscular HGB Conc 32 % (30-34); Mean Corpuscular Hemoglobin 29 pg (28-32); Mean Corpuscular Volume 90 fl (79-97); Red Blood Count 2.19 M/mm3 (3.65-5.03); Red Cell Distribution Width 19.3 % (13.2-15.2)
[2016-10-10 06:15] LABS: Platelet Count 93 K/mm3 (140-440)
[2016-10-10 06:17] LABS: Hematocrit 19.6 % (30.3-42.9)
[2016-10-10] MEDS ORDERED: NACL 0.9% 500 ML 500 ML IV ONE ×2 (06:25→10:01)
[2016-10-10 06:35] LABS: BUN/Creatinine Ratio 30.32; Bilirubin,Direct 0.3 mg/dL (0-0.2); Blood Urea Nitrogen 94 mg/dL (7-17); Calcium 8.2 mg/dL (8.4-10.2); Hemolysis Index 3
[2016-10-10 06:44] LABS: Alanine Aminotransferase < 5 units/L (7-56)
[2016-10-10 07:04] LABS: Anisocytosis 1+; Band Neutrophils # (Manual) 4.4 K/mm3; Basophils % (Manual) 0 % (0.0-1.8); Eosinophils % (Manual) 0 % (0.0-4.3); Hypochromasia 1+; Macrocytosis 1+; Platelet Estimate Consistent w Auto; Total Cells Counted 100
--- NOTE | 2016-10-10 07:37 | Ultrasound Report ---
ULTRASOUND RENAL BILATERAL HISTORY: Acute renal insufficiency, anuria. TECHNIQUE: transabdominal ultrasound with color Doppler interrogation. FINDINGS: The right kidney measures 9.7 x 5.5 x 4.5cm. Right renal cortex: 1.4cm. The left kidney measures 10.2 x 4.6 x 4.6cm. Left renal cortex: 1.3cm. The kidneys are normal size, contour and position. There is increased renal parenchymal echotexture bilaterally. Corticomedullary differentiation is preserved. No evidence for cystic disease, mass, hydronephrosis or perinephric fluid. The views of the bladder and the region of the ureters appear normal. IMPRESSION: Renal parenchymal disease. No significant change since 09/07/16.
--- NOTE | 2016-10-10 08:46 | Progress Note ---
Assessment and Plan Assessment and plan: Assessment and plan: 1. Acute hypoxic respiratory failure On mechanical ventilation Status post trach 2. Acute massive left MCA CVA Status post TPA Aspirin/statin Supportive care 3. Toxic metabolic Encephalopathy Multifactorial. Not following commands 4. Severe sepsis with septic shock UTI/candidemia/peritonitis due to gastric perforation from dislodged PEG Off pressors now Antibiotic/antifungals per ID recommendation 5. Dislodged PEG Status post wedge gastrectomy, repair of gastric perforation, abdominal washout and drain placement Surgery following 6. Acute blood loss anemia requiring multiple PRBC transfusions. Hemoglobin 6.4 today. Will give 2 Units PRBC. Repeat stool occult blood, re- consult GI Monitor H&H closely, 7. Thrombocytopenia Monitor 8. Acute on chronic kidney disease, For dialysis today 9. Electrolyte imbalances Replete, recheck 10. Paroxysmal A. fib Status post failed conversion on 09/25 Amiodarone drip No anticoagulation due to anemia/thrombocytopenia, massive CVA 11. Diabetes mellitus type 2 Insulin/SSI 12. Severe protein caloric malnutrition Currently on TPN 13. Extensive back skin peeling 14. DVT prophylaxis SCDs, no pharmacological agent given anemia requiring multiple PRBC transfusions , thrombocytopenia, massive stroke 15. Hyperkalemia. Give Insulin. For dialysis today 16. Full code status 17. Prognosis guarded History Interval history: Patient with multi-organ failure, No more fever past 2 days Hospitalist Physical - Physical exam Narrative exam: Gen appearance: Trach, not in acute distress HEENT: Atraumatic Neck: Tracheostomy Lungs: Clear to auscultation bilaterally, no crackles or wheezes Heart :S1 and S2 irregular, no murmurs, rubs or gallop Abdomen: Soft, surgical drain, dressing over left upper quadrant, bowel sounds present Extremities : bilateral edema Neuro: Minimal response, does not follow commands - Constitutional Vitals: Temp Pulse Resp BP Pulse Ox 98.1 F 69 17 133/66 100 10/10/16 07:53 10/10/16 08:19 10/10/16 08:19 10/10/16 08:19 10/10/16 08:19 General appearance: Present: mild distress, obese, other (on vent, non- responsive) Results - Labs CBC & Chem 7: 10/10/16 05:00 10/10/16 05:00 Labs: Laboratory Last Values WBC 18.5 K/mm3 (4.5-11.0) H 10/10/16 05:00 RBC 2.19 M/mm3 (3.65-5.03) L 10/10/16 05:00 Hgb 6.4 gm/dl (10.1-14.3) L 10/10/16 05:00 Hct 19.6 % (30.3-42.9) L* 10/10/16 05:00 MCV 90 fl (79-97) 10/10/16 05:00 MCH 29 pg (28-32) 10/10/16 05:00 MCHC 32 % (30-34) 10/10/16 05:00 RDW 19.3 % (13.2-15.2) H 10/10/16 05:00 Plt Count 93 K/mm3 (140-440) L 10/10/16 05:00 Lymph % (Auto) 6.9 % (13.4-35.0) L 09/21/16 07:45 [place] % (Auto) 0.5 % (0.0-7.3) 10/03/16 05:10 Eos % (Auto) 1.3 % (0.0-4.3) 10/03/16 05:10 Baso % (Auto) 0.2 % (0.0-1.8) 09/21/16 07:45 Lymph # 0.9 K/mm3 (1.2-5.4) L 09/21/16 07:45 [place] # 0.1 K/mm3 (0.0-0.8) 10/03/16 05:10 Eos # 0.2 K/mm3 (0.0-0.4) 10/03/16 05:10 Baso # 0.0 K/mm3 (0.0-0.1) 10/03/16 05:10 Add Manual Diff Complete 10/10/16 05:00 Total Counted 100 10/10/16 05:00 Seg Neutrophils % Bus [place] 10/03/16 05:10 Seg Neuts % (Manual) 61.0 % (40.0-70.0) 10/10/16 05:00 Band Neutrophils % 24.0 % 10/10/16 05:00 Lymphocytes % (Manual) 10.0 % (13.4-35.0) L 10/10/16 05:00 Reactive Lymphs % (Man) 0 % 10/10/16 05:00 Monocytes % (Manual) 2.0 % (0.0-7.3) 10/10/16 05:00 Eosinophils % (Manual) 0 % (0.0-4.3) 10/10/16 05:00 Basophils % (Manual) 0 % (0.0-1.8) 10/10/16 05:00 Metamyelocytes % 3.0 % 10/10/16 05:00 Myelocytes % 0 % 10/10/16 05:00 Promyelocytes % 0 % 10/10/16 05:00 Blast Cells % 0 % 10/10/16 05:00 Nucleated RBC % 4.0 % (0.0-0.9) H 10/10/16 05:00 Seg Neutrophils # 11.9 K/mm3 (1.8-7.7) H 10/03/16 05:10 Seg Neutrophils # Man 11.3 K/mm3 (1.8-7.7) H 10/10/16 05:00 Band Neutrophils # 4.4 K/mm3 10/10/16 05:00 Lymphocytes # (Manual) 1.9 K/mm3 (1.2-5.4) 10/10/16 05:00 Abs React Lymphs (Man) 0.0 K/mm3 10/10/16 05:00 Monocytes # (Manual) 0.4 K/mm3 (0.0-0.8) 10/10/16 05:00 Eosinophils # (Manual) 0.0 K/mm3 (0.0-0.4) 10/10/16 05:00 Basophils # (Manual) 0.0 K/mm3 (0.0-0.1) 10/10/16 05:00 Metamyelocytes # 0.6 K/mm3 10/10/16 05:00 Myelocytes # 0.0 K/mm3 10/10/16 05:00 Promyelocytes # 0.0 K/mm3 10/10/16 05:00 Blast Cells # 0.0 K/mm3 10/10/16 05:00 Pathologist Review 09/13/16 04:00 WBC Morphology Not Reportable 10/10/16 05:00 Hypersegmented Neuts Not Reportable 10/10/16 05:00 Hyposegmented Neuts Not Reportable 10/10/16 05:00 Hypogranular Neuts Not Reportable 10/10/16 05:00 Smudge Cells Not Reportable 10/10/16 05:00 Toxic Granulation Not Reportable 10/10/16 05:00 Toxic Vacuolation Not Reportable 10/10/16 05:00 Dohle Bodies Not Reportable 10/10/16 05:00 Pelger-Huet Anomaly Not Reportable 10/10/16 05:00 Jasmina Rods Not Reportable 10/10/16 05:00 Platelet Estimate Consistent w auto 10/10/16 05:00 Clumped Platelets Not Reportable 10/10/16 05:00 Plt Clumps, EDTA Not Reportable 10/10/16 05:00 Large Platelets Not Reportable 10/10/16 05:00 Giant Platelets Not Reportable 10/10/16 05:00 Platelet Satelliting Not Reportable 10/10/16 05:00 Plt Morphology Comment Not Reportable 10/10/16 05:00 RBC Morphology Not Reportable 10/10/16 05:00 Dimorphic RBCs Not Reportable 10/10/16 05:00 Polychromasia Rare 10/10/16 05:00 Hypochromasia 1+ 10/10/16 05:00 Poikilocytosis Not Reportable 10/10/16 05:00 Anisocytosis 1+ 10/10/16 05:00 Microcytosis Not Reportable 10/10/16 05:00 Macrocytosis 1+ 10/10/16 05:00 Spherocytes Not Reportable 10/10/16 05:00 Pappenheimer Bodies Not Reportable 10/10/16 05:00 Sickle Cells Not Reportable 10/10/16 05:00 Target Cells Not Reportable 10/10/16 05:00 Tear Drop Cells Not Reportable 10/10/16 05:00 Ovalocytes Not Reportable 10/10/16 05:00 Stomatocytes Few 10/06/16 03:50 Helmet Cells Not Reportable 10/10/16 05:00 [place] Bodies Not Reportable 10/10/16 05:00 [place] Rings Not Reportable 10/10/16 05:00 Chuck Cells Not Reportable 10/10/16 05:00 Bite Cells Not Reportable 10/10/16 05:00 Crenated Cell Not Reportable 10/10/16 05:00 Elliptocytes Not Reportable 10/10/16 05:00 Acanthocytes (Spur) Not Reportable 10/10/16 05:00 Rouleaux Not Reportable 10/10/16 05:00 Hemoglobin C Crystals Not Reportable 10/10/16 05:00 Schistocytes Not Reportable 10/10/16 05:00 Malaria parasites Not Reportable 10/10/16 05:00 ESR > 140.0 mm/Hr (0-20) 09/08/16 11:48 Jun Bodies Not Reportable 10/10/16 05:00 Hem Pathologist Commnt No 10/10/16 05:00 PT 19.0 Sec. (12.2-14.9) H 10/09/16 03:45 INR 1.51 (0.87-1.13) H 10/09/16 03:45 APTT 33.0 Sec. (24.2-36.6) 10/09/16 03:45 Thrombin Time 16.8 Sec. (15.1-19.6) 09/03/16 00:10 Fibrinogen 750 mg/dl (211-480) H 09/08/16 11:48 Lupus Anticoagulant see below 09/12/16 09:59 LA PTT Baseline See scanned report 09/12/16 09:59 dRVVT Confirm Interp Positive (Negative) H 09/12/16 09:59 dRVVT Screen 50:50 See scanned report 09/12/16 09:59 dRVVT Mix Interpret See scanned report 09/12/16 09:59 Protein C Antigen 122 % (70-140) 09/08/16 15:35 Free Protein S 97 % normal (50-147) 09/08/16 15:35 Total Protein S 109 % (70-140) 09/08/16 15:35 Antithrombin III Ag 100 % (80-120) 09/08/16 15:35 Heparin Anti-Xa, Unfract Negative (Negative) 09/29/16 13:35 Factor V Activity 182 % (65-150) H 09/08/16 15:35 POC ABG pH 7.437 (7.35-7.45) 10/08/16 12:49 POC ABG pCO2 28.2 (35-45) L 10/08/16 12:49 POC ABG pO2 111 (80-105) H 10/08/16 12:49 POC ABG HCO3 19.0 10/08/16 12:49 POC ABG Total CO2 20 10/08/16 12:49 POC ABG O2 Sat 99 10/08/16 12:49 POC ABG Base Excess -5 10/08/16 12:49 FiO2 28 % 10/08/16 12:49 Sodium 137 mmol/L (137-145) 10/10/16 05:00 Potassium 5.7 mmol/L (3.6-5.0) H D 10/10/16 05:00 Chloride 98.9 mmol/L (98-107) 10/10/16 05:00 Carbon Dioxide 16 mmol/L (22-30) L 10/10/16 05:00 Anion Gap 28 mmol/L 10/10/16 05:00 BUN 94 mg/dL (7-17) H 10/10/16 05:00 Creatinine 3.1 mg/dL (0.7-1.2) H 10/10/16 05:00 Estimated GFR 20 ml/min 10/10/16 05:00 BUN/Creatinine Ratio 30.32 % 10/10/16 05:00 Glucose 131 mg/dL (65-100) H 10/10/16 05:00 POC Glucose 97 (70-105) 10/10/16 00:29 Osmolality 351 Mosm/kg 09/16/16 11:47 Lactic Acid 4.50 mmol/L (0.7-2.0) H* 09/28/16 07:25 Calcium 8.2 mg/dL (8.4-10.2) L 10/10/16 05:00 Phosphorus 5.10 mg/dL (2.5-4.5) H 10/10/16 05:00 Magnesium 2.40 mg/dL (1.7-2.3) H 10/10/16 05:00 Total Bilirubin 0.40 mg/dL (0.1-1.2) 10/10/16 05:00 Direct Bilirubin 0.3 mg/dL (0-0.2) H 10/10/16 05:00 Indirect Bilirubin 0.1 mg/dL 10/10/16 05:00 AST 21 units/L (5-40) 10/10/16 05:00 ALT < 5 units/L (7-56) L 10/10/16 05:00 Alkaline Phosphatase 319 units/L (35-129) H 10/10/16 05:00 Ammonia 27.0 umol/L (25-60) 09/07/16 08:37 Total Creatine Kinase 121 units/L (30-135) 09/29/16 20:12 CK-MB (CK-2) < 1.0 ng/mL (0.0-4.0) 09/29/16 20:12 CK-MB (CK-2) Rel Index 0.8 (0-4) 09/29/16 20:12 Troponin T 0.204 ng/mL (0.00-0.029) H* 09/29/16 20:12 C-Reactive Protein 19.40 mg/dL (0.00-1.30) H 10/07/16 10:00 Total Protein 5.1 g/dL (6.3-8.2) L 10/10/16 05:00 Albumin 1.0 g/dL (3.9-5) L 10/10/16 05:00 Albumin/Globulin Ratio 0.2 % 10/10/16 05:00 Triglycerides 137 mg/dL (2-149) 09/29/16 20:12 Cholesterol 31 mg/dL (50-199) L 09/29/16 20:12 LDL Cholesterol Direct 4 mg/dL (50-130) L 09/29/16 20:12 HDL Cholesterol 3 mg/dL (40-59) L 09/29/16 20:12 Cholesterol/HDL Ratio 10.33 % 09/29/16 20:12 Angiotensin Convert Enz See scanned report 09/08/16 11:48 Serotonin Release Assay See scanned report 09/29/16 13:35 TSH 1.010 mlU/mL (0.270-4.200) 09/07/16 08:37 HCG, Qual Negative (Negative) 09/03/16 00:10 Urine Color [place] (Yellow) 10/07/16 18:30 Urine Turbidity Turbid (Clear) 10/07/16 18:30 Urine pH 7.0 (5.0-7.0) 10/07/16 18:30 Ur Specific Marceline 1.012 (1.003-1.030) 10/07/16 18:30 Urine Protein 100 mg/dl mg/dL (Negative) 10/07/16 18:30 Urine Glucose (UA) Neg mg/dL (Negative) 10/07/16 18:30 Urine Ketones Neg mg/dL (Negative) 10/07/16 18:30 Urine Blood Lg (Negative) 10/07/16 18:30 Urine Nitrite Neg (Negative) 10/07/16 18:30 Urine Bilirubin Neg (Negative) 10/07/16 18:30 Urine Urobilinogen < 2.0 mg/dL (<2.0) 10/07/16 18:30 Ur Leukocyte Esterase Lg (Negative) 10/07/16 18:30 Urine WBC (Auto) > 182.0 /HPF (0.0-6.0) H 10/07/16 18:30 Urine RBC (Auto) > 182.0 /HPF (0.0-6.0) 10/07/16 18:30 U Epithel Cells (Auto) 1.0 /HPF (0-13.0) 10/07/16 18:30 Urine Bacteria (Auto) 3+ /HPF (Negative) 10/07/16 18:30 Urine WBC Clumps 2+ /HPF 09/07/16 02:47 Hyaline Casts 4 /LPF 09/07/16 02:47 Urine Mucus Few /HPF 10/07/16 18:30 Urine Yeast (Budding) 3+ /HPF 10/07/16 18:30 Urine Eosinophils None seen (None Seen) 09/07/16 16:00 Urine Total Volume 1350 09/21/16 12:00 Urine Creatinine 54.8 mg/dL (0.1-20.0) H 09/21/16 12:00 Height (in) 67.0 inches 09/21/16 12:00 Weight (lb) 92.0 lbs 09/21/16 12:00 Creatinine Clearance 15 09/21/16 12:00 Urine Sodium 36 mEq/L 09/16/16 19:19 Urine Total Protein 16 mg/dL (5-11.8) H 09/16/16 19:19 Vancomycin Trough 2.3 ug/mL (5.0-20.0) L 09/21/16 13:00 Random Vancomycin 2.3 ug/mL (0-40.0) 09/09/16 03:00 Urine Opiates Screen Presumptive negative 09/03/16 15:11 Urine Methadone Screen Presumptive positive 09/03/16 15:11 Ur Barbiturates Screen Presumptive positive 09/03/16 15:11 Ur Phencyclidine Scrn Presumptive negative 09/03/16 15:11 Ur Amphetamines Screen Presumptive negative 09/03/16 15:11 U Benzodiazepines Scrn Presumptive negative 09/03/16 15:11 Urine Cocaine Screen Presumptive negative 09/03/16 15:11 U Marijuana (THC) Screen Presumptive positive 09/03/16 15:11 Drugs of Abuse Note Disclamer 09/03/16 15:11 Rheumatoid Factor 24 IU/ml (0-13) H 09/08/16 11:48 SAHIL Screen Negative (Negative) 09/07/16 09:20 Proteinase 3 (PR3) Ab <1.0 AI (<1.0) 09/07/16 09:20 Myeloperoxidase Ab <1.0 AI (<1.0) 09/07/16 09:20 Sjogren's Antibody <1.0 AI (<1.0) 09/08/16 15:35 Scl-70 Scleroderma Ab <1.0 AI (<1.0) 09/08/16 15:35 Centromere B Antibody <1.0 AI (<1.0) 09/08/16 12:02 Heparin-induced Plt Ab Negative (Negative) 09/29/16 13:35 UF Heparin High Dose 11 % Release 09/29/16 13:35 SUDHIR UFH Low Dose 0.1 6 % Release 09/29/16 13:35 SUDHIR UFH Low Dose 0.5 8 % Release 09/29/16 13:35 Cardiolipid IgG Ab <14 GPL (<=14) 09/12/16 09:59 Cardiolipid IgA Ab <11 APL (<=11) 09/12/16 09:59 Cardiolipid IgM Ab <12 MPL (<=12) 09/12/16 09:59 Complement C3 148 mg/dL (90-180) 09/07/16 09:20 Complement C4 58 mg/dL (16-47) H 09/07/16 09:20 RPR Nonreactive (Nonreactive) 09/08/16 11:48 Hepatitis A IgM Ab Non-reactive (NonReactive) 09/24/16 14:40 Hep Bs Antigen Non-reactive (Negative) 09/24/16 14:40 Hep B Core IgM Ab Non-reactive (NonReactive) 09/24/16 14:40 Hepatitis C Antibody Non-reactive (NonReactive) 09/24/16 14:40 HIV 1&2 Antibody Rapid Non react (Non React) 09/08/16 11:48 HIV P24 Antigen Non react (Non React) 09/08/16 11:48 Blood Type A POSITIVE 10/09/16 07:20 Antibody Screen Negative 10/09/16 07:20 DELORIS Antibody Screen Negative 09/25/16 10:30 Crossmatch See Detail 10/09/16 07:20
--- NOTE | 2016-10-10 09:14 | Progress Note ---
Assessment and Plan Assessment: 1) Recurrent Sepsis: Improving, fever resolved. Noted leukocytosis today likely due to severe anemia. -Current sepsis etiology - peritonitis from gastric perforation +/- UTI. -Initial sepsis etiology - presumed aspiration pneumonia, and another septic episode on 09/23 from Candidemia. -CRP 19 on 10/08 2) Peritonitis: from gastric perforation from dislodged PEG with significant ascites -S/P exlap, repair of gastric perforation with wedge gastrectomy, abdominal washout, drain placement on 10/05. 3) Candidemia: -Blood cultures positive for Silvia albicans on 09/23 -Blood cultures positive on 09/25 -Blood cutlures negative on 09/30 -PICC line changed on 10/03 -Source ? gastric perf (PEG placed on 09/20) +/- TPN +/- central lines -TTE 10/07 no vegetations 4) CA-UTI s/p gutierrez exchanged 5) Diarrhea - ? etiology ? antibiotic-induced, not better 6) Initial presumed aspiration pneumonia 7) Presumed UTI: urine cx 09/23 multiple species 8) Respiratory failure s/p trach 9) Recent CVA-left MCA CVA 10) Uncontrolled HTN 11) Acute on CKD 12) Extensive back skin peeling ? burn from gastric secretions. Doubt allergic reaction 13) Severe anemia; ? from GI bleed Plan: -stool for leukocytes -ask for GI evaluation in view of presumed GI bleed / persistent diarrhea -f/u procalcitonin -recheck C-reactive protein (CRP) tomorrow -continue zosyn to cover peritonitis and micafungin to cover Silvia albicans -ask cards if amiodarone can be exchanged to another drug so fluconazole can be started. Silvia albicans is fully sensitive to fluconazole. -discussed with GI WILDLIFE SCIENCE PROFESSOR Terri and Dr Ribeiro Thank you Dr Ribeiro for your consultation, will follow up with you. Pauline Carias MD Infectious Diseases Specialist [facility] ([facility] M [phone] O [phone] Subjective Date of service: 10/10/16 Principal diagnosis: Acute resp failure on MVS; S/P Acute CVA; Acute Encephalopathy; JUANITA Interval history: Remains somnolent, open eyes upon stimuli, not following commands, on the vent via trach, on CPAP fio2 30%, no pressors. No fever last 24h. +oliguric. + diarrhea via rectal tube with maroon stools Microbiology: Blood cultures: 09/13 neg 8 Silvia albicans 09/25 Silvia 09/29 neg 10/07 NGTD Urine cultures: 09/10 neg 09/13 neg 8 10-100K mixed species 10/07 pending Respiratory cultures: 09/07 neg 09/13 neg 09/23 neg Wound cultures: Stool cultures: Current Antimicrobials: zosyn 10/07 Micafungin 09/27 Previous Antimicrobials: Zosyn Vancomycin PO 10/01 Metronidazole 09/25 Objective - Exam Narrative Exam: General appearance: somnolent non verbal, on the vent via trach no following commands Eyes: anicteric sclera, moist conjunctivae; PERRLA HENT: Atraumatic; oropharynx limited; Normal external ears. +NGT with greenish secretion Neck: +trach in place; supple, no thyromegaly or lymphadenopathy Lungs: coarse BS bilateral CV: tachycardic Abdomen: Soft, non-tender, +drain with purulent drainage, + diarrhea via rectal tube. +old PEG site no drainage. Extremities: +peripheral edema no extremity lymphadenopathy Skin: Julian sub mammary ulcers, extensive skin peeling on back Psych: Anxious. Neuro: somnolent non verbal on the vent. Lines: left arm PICC placed on 10/03 - Constitutional Vitals: Vital Signs Temp Pulse Resp BP Pulse Ox 98.1 F 78 24 133/66 100 10/10/16 07:53 10/10/16 08:49 10/10/16 08:49 10/10/16 08:19 10/10/16 08:19 Temperature -Last 24 Hours Temperature 98.1 F Temperature 98.4 F Temperature 98.4 F Temperature 98.7 F Temperature 97.7 F Temperature 97.6 F - Labs CBC & Chem 7: 10/10/16 05:00 10/10/16 05:00 Labs: Abnormal lab results 09/25/16 10/09/16 10/09/16 Range/Units 10:30 07:20 11:46 WBC (4.5-11.0) K/mm3 RBC (3.65-5.03) M/mm3 Hgb (10.1-14.3) gm/dl Hct (30.3-42.9) % RDW (13.2-15.2) % Plt Count (140-440) K/mm3 Lymphocytes % (Manual) (13.4-35.0) % Nucleated RBC % (0.0-0.9) % Seg Neutrophils # Man (1.8-7.7) K/mm3 Potassium (3.6-5.0) mmol/L Carbon Dioxide (22-30) mmol/L BUN (7-17) mg/dL Creatinine (0.7-1.2) mg/dL Glucose (65-100) mg/dL POC Glucose 133 H (70-105) Calcium (8.4-10.2) mg/dL Phosphorus (2.5-4.5) mg/dL Magnesium (1.7-2.3) mg/dL Direct Bilirubin (0-0.2) mg/dL ALT (7-56) units/L Alkaline Phosphatase (35-129) units/L Total Protein (6.3-8.2) g/dL Albumin (3.9-5) g/dL Crossmatch See Detail See Detail 10/09/16 10/09/16 10/10/16 Range/Units 16:20 16:43 05:00 WBC (4.5-11.0) K/mm3 RBC (3.65-5.03) M/mm3 Hgb 7.2 L (10.1-14.3) gm/dl Hct 22.2 L (30.3-42.9) % RDW (13.2-15.2) % Plt Count (140-440) K/mm3 Lymphocytes % (Manual) (13.4-35.0) % Nucleated RBC % (0.0-0.9) % Seg Neutrophils # Man (1.8-7.7) K/mm3 Potassium 5.7 H D (3.6-5.0) mmol/L Carbon Dioxide 16 L (22-30) mmol/L BUN 94 H (7-17) mg/dL Creatinine 3.1 H (0.7-1.2) mg/dL Glucose 131 H (65-100) mg/dL POC Glucose 141 H (70-105) Calcium 8.2 L (8.4-10.2) mg/dL Phosphorus 5.10 H (2.5-4.5) mg/dL Magnesium 2.40 H (1.7-2.3) mg/dL Direct Bilirubin 0.3 H (0-0.2) mg/dL ALT < 5 L (7-56) units/L Alkaline Phosphatase 319 H (35-129) units/L Total Protein 5.1 L (6.3-8.2) g/dL Albumin 1.0 L (3.9-5) g/dL Crossmatch 10/10/16 Range/Units 05:00 WBC 18.5 H (4.5-11.0) K/mm3 RBC 2.19 L (3.65-5.03) M/mm3 Hgb 6.4 L (10.1-14.3) gm/dl Hct 19.6 L* (30.3-42.9) % RDW 19.3 H (13.2-15.2) % Plt Count 93 L (140-440) K/mm3 Lymphocytes % (Manual) 10.0 L (13.4-35.0) % Nucleated RBC % 4.0 H (0.0-0.9) % Seg Neutrophils # Man 11.3 H (1.8-7.7) K/mm3 Potassium (3.6-5.0) mmol/L Carbon Dioxide (22-30) mmol/L BUN (7-17) mg/dL Creatinine (0.7-1.2) mg/dL Glucose (65-100) mg/dL POC Glucose (70-105) Calcium (8.4-10.2) mg/dL Phosphorus (2.5-4.5) mg/dL Magnesium (1.7-2.3) mg/dL Direct Bilirubin (0-0.2) mg/dL ALT (7-56) units/L Alkaline Phosphatase (35-129) units/L Total Protein (6.3-8.2) g/dL Albumin (3.9-5) g/dL Crossmatch
[2016-10-10] MEDS ORDERED: D50W (25GM) Syringe IV ONE (10:05)
[2016-10-10] MEDS ORDERED: HumuLIN R IV STA (10:05)
--- NOTE | 2016-10-10 10:47 | Gastroenterology Progress Note ---
Assessment and Plan 1.hematochezia -HGB 6.4-trending down -continue to monitor H&H and transfuse as needed -vital signs stable -no active signs of bleeding today, however nursing reports maroon/bright red blood with clots in diaper last night -upon exam today, pt was noted to have a large liquid BM with brown stool -etiology of source of bleeding unclear- possible vaginal? -NPO with NG tube to LIS due to recent PEG tube complications -given pt's current condition will continue to monitor and treat conservatively -recommend obtaining a bleeding scan if further episodes of bleeding develop -stool studies pending for diarrhea -will follow Subjective Date of service: 10/10/16 Principal diagnosis: hematochezia Interval history: Patient still intubated in ICU. Pt passing maroon/bright red blood with clots in diaper last night per nursing. No signs of active bleeding today. Pt noted to have large BM of liquid brown stool on exam. Objective - Constitutional Vitals: Temp Pulse Resp BP Pulse Ox 98.1 F 80 27 H 150/86 100 10/10/16 07:53 10/10/16 09:00 10/10/16 09:00 10/10/16 09:00 10/10/16 09:00 General appearance: other (intubated, nonverbal, not following commands) - EENT Eyes: PERRL - Respiratory Respiratory: bilateral: other (coarse) - Cardiovascular Rhythm: regular Heart Sounds: Present: S1 & S2 - Gastrointestinal General gastrointestinal: Present: soft, distended (mild), hypoactive bowel sounds, other (JUAN drain with purulent drainage) Rectal Exam: stool brown - Labs CBC & Chem 7: 10/10/16 05:00 10/10/16 05:00 Labs: Laboratory Results - last 24 hr 10/09/16 10/09/16 10/09/16 07:20 11:46 16:20 WBC RBC Hgb 7.2 L Hct 22.2 L MCV MCH MCHC RDW Plt Count Add Manual Diff Total Counted Seg Neuts % (Manual) Band Neutrophils % Lymphocytes % (Manual) Reactive Lymphs % (Man) Monocytes % (Manual) Eosinophils % (Manual) Basophils % (Manual) Metamyelocytes % Myelocytes % Promyelocytes % Blast Cells % Nucleated RBC % Seg Neutrophils # Man Band Neutrophils # Lymphocytes # (Manual) Abs React Lymphs (Man) Monocytes # (Manual) Eosinophils # (Manual) Basophils # (Manual) Metamyelocytes # Myelocytes # Promyelocytes # Blast Cells # WBC Morphology Hypersegmented Neuts Hyposegmented Neuts Hypogranular Neuts Smudge Cells Toxic Granulation Toxic Vacuolation Dohle Bodies Pelger-Huet Anomaly Jasmina Rods Platelet Estimate Clumped Platelets Plt Clumps, EDTA Large Platelets Giant Platelets Platelet Satelliting Plt Morphology Comment RBC Morphology Dimorphic RBCs Polychromasia Hypochromasia Poikilocytosis Anisocytosis Microcytosis Macrocytosis Spherocytes Pappenheimer Bodies Sickle Cells Target Cells Tear Drop Cells Ovalocytes Helmet Cells Monet-Alderson Bodies [place] Rings Chuck Cells Bite Cells Crenated Cell Elliptocytes Acanthocytes (Spur) Rouleaux Hemoglobin C Crystals Schistocytes Malaria parasites Jun Bodies Hem Pathologist Commnt Sodium Potassium Chloride Carbon Dioxide Anion Gap BUN Creatinine Estimated GFR BUN/Creatinine Ratio Glucose POC Glucose 133 H Calcium Phosphorus Magnesium Total Bilirubin Direct Bilirubin Indirect Bilirubin AST ALT Alkaline Phosphatase Total Protein Albumin Albumin/Globulin Ratio Blood Type A POSITIVE Antibody Screen Negative Crossmatch See Detail 10/09/16 10/10/16 10/10/16 16:43 00:29 05:00 WBC RBC Hgb Hct MCV MCH MCHC RDW Plt Count Add Manual Diff Total Counted Seg Neuts % (Manual) Band Neutrophils % Lymphocytes % (Manual) Reactive Lymphs % (Man) Monocytes % (Manual) Eosinophils % (Manual) Basophils % (Manual) Metamyelocytes % Myelocytes % Promyelocytes % Blast Cells % Nucleated RBC % Seg Neutrophils # Man Band Neutrophils # Lymphocytes # (Manual) Abs React Lymphs (Man) Monocytes # (Manual) Eosinophils # (Manual) Basophils # (Manual) Metamyelocytes # Myelocytes # Promyelocytes # Blast Cells # WBC Morphology Hypersegmented Neuts Hyposegmented Neuts Hypogranular Neuts Smudge Cells Toxic Granulation Toxic Vacuolation Dohle Bodies Pelger-Huet Anomaly Jasmina Rods Platelet Estimate Clumped Platelets Plt Clumps, EDTA Large Platelets Giant Platelets Platelet Satelliting Plt Morphology Comment RBC Morphology Dimorphic RBCs Polychromasia Hypochromasia Poikilocytosis Anisocytosis Microcytosis Macrocytosis Spherocytes Pappenheimer Bodies Sickle Cells Target Cells Tear Drop Cells Ovalocytes Helmet Cells Monet-Alderson Bodies [place] Rings [place] Cells Bite Cells Crenated Cell Elliptocytes Acanthocytes (Spur) Rouleaux Hemoglobin C Crystals Schistocytes Malaria parasites Jun Bodies Hem Pathologist Commnt Sodium 137 Potassium 5.7 H D Chloride 98.9 Carbon Dioxide 16 L Anion Gap 28 BUN 94 H Creatinine 3.1 H Estimated GFR 20 BUN/Creatinine Ratio 30.32 Glucose 131 H POC Glucose 141 H 97 Calcium 8.2 L Phosphorus 5.10 H Magnesium 2.40 H Total Bilirubin 0.40 Direct Bilirubin 0.3 H Indirect Bilirubin 0.1 AST 21 ALT < 5 L Alkaline Phosphatase 319 H Total Protein 5.1 L Albumin 1.0 L Albumin/Globulin Ratio 0.2 Blood Type Antibody Screen Crossmatch 10/10/16 05:00 WBC 18.5 H RBC 2.19 L Hgb 6.4 L Hct 19.6 L* MCV 90 MCH 29 MCHC 32 RDW 19.3 H Plt Count 93 L Add Manual Diff Complete Total Counted 100 Seg Neuts % (Manual) 61.0 Band Neutrophils % 24.0 Lymphocytes % (Manual) 10.0 L Reactive Lymphs % (Man) 0 Monocytes % (Manual) 2.0 Eosinophils % (Manual) 0 Basophils % (Manual) 0 Metamyelocytes % 3.0 Myelocytes % 0 Promyelocytes % 0 Blast Cells % 0 Nucleated RBC % 4.0 H Seg Neutrophils # Man 11.3 H Band Neutrophils # 4.4 Lymphocytes # (Manual) 1.9 Abs React Lymphs (Man) 0.0 Monocytes # (Manual) 0.4 Eosinophils # (Manual) 0.0 Basophils # (Manual) 0.0 Metamyelocytes # 0.6 Myelocytes # 0.0 Promyelocytes # 0.0 Blast Cells # 0.0 WBC Morphology Not Reportable Hypersegmented Neuts Not Reportable Hyposegmented Neuts Not Reportable Hypogranular Neuts Not Reportable Smudge Cells Not Reportable Toxic Granulation Not Reportable Toxic Vacuolation Not Reportable Dohle Bodies Not Reportable Pelger-Huet Anomaly Not Reportable Jasmina Rods Not Reportable Platelet Estimate Consistent w auto Clumped Platelets Not Reportable Plt Clumps, EDTA Not Reportable Large Platelets Not Reportable Giant Platelets Not Reportable Platelet Satelliting Not Reportable Plt Morphology Comment Not Reportable RBC Morphology Not Reportable Dimorphic RBCs Not Reportable Polychromasia Rare Hypochromasia 1+ Poikilocytosis Not Reportable Anisocytosis 1+ Microcytosis Not Reportable Macrocytosis 1+ Spherocytes Not Reportable Pappenheimer Bodies Not Reportable Sickle Cells Not Reportable Target Cells Not Reportable Tear Drop Cells Not Reportable Ovalocytes Not Reportable Helmet Cells Not Reportable Monet-Alderson Bodies Not Reportable [place] Rings Not Reportable [place] Cells Not Reportable Bite Cells Not Reportable Crenated Cell Not Reportable Elliptocytes Not Reportable Acanthocytes (Spur) Not Reportable Rouleaux Not Reportable Hemoglobin C Crystals Not Reportable Schistocytes Not Reportable Malaria parasites Not Reportable Jun Bodies Not Reportable Hem Pathologist Commnt No Sodium Potassium Chloride Carbon Dioxide Anion Gap BUN Creatinine Estimated GFR BUN/Creatinine Ratio Glucose POC Glucose Calcium Phosphorus Magnesium Total Bilirubin Direct Bilirubin Indirect Bilirubin AST ALT Alkaline Phosphatase Total Protein Albumin Albumin/Globulin Ratio Blood Type Antibody Screen Crossmatch
--- NOTE | 2016-10-10 10:48 | Progress Note ---
Subjective Principal diagnosis: Acute resp failure on MVS; S/P Acute CVA; Acute Encephalopathy; JUANITA Interval history: Patient was evaluated today for follow-up on multiple renal related issues No acute distress Renal ultrasonogram was essentially unremarkable for any obstruction Urine output has been very poor Events of 24 hours were noted Vital labs intake and output medications were reviewed Current medications: Reviewed Social history:Reviewed Family history: Reviewed HEENT: No uremic order oral mucosa moist Neck: Supple without any thyromegaly mass or JVD Chest: Bilateral crackles posteriorly and to the side Heart: Regular rate and rhythm S1 and S2 heard no S3-S4 Abdomen: Soft nontender no voluntary guarding rigidity or rebound Extremity: Edema approximately 1+ generalized Psychiatry: No agitation and aggression noted Assessment and plan Acute on chronic renal failure; continue to monitor renal function for now, avoid any nephrotoxic medication patient needs to be on dialysis at least 3-4 times per week now She has recently became oliguric/anuric SONOGRAM did not show any evidence of obstruction Renal ultrasonogram unremarkable patient's urine output has been very poor she also has been retaining fluid at this time would like to initiate renal replacement therapy today and follow case discussed with patient's family at bedside Expected prognosis is very poor We'll continue with supportive care hemodialysis for now and monitor for recovery of possible History of chronic kidney disease/renovascular disease TPN volume may need to be reduced Objective - Vital Signs Vital signs: Vital Signs - 12hr 10/09/16 10/10/16 10/10/16 23:00 00:00 01:00 Temperature 98.4 F Pulse Rate 83 78 89 Pulse Rate [ From Monitor] Respiratory 20 19 27 H Rate Blood Pressure 138/79 126/66 158/90 O2 Sat by Pulse 100 100 100 Oximetry 10/10/16 10/10/16 10/10/16 02:00 02:42 03:00 Temperature Pulse Rate 92 H 83 Pulse Rate [ From Monitor] Respiratory 27 H Rate Blood Pressure 170/92 186/101 125/71 O2 Sat by Pulse 100 Oximetry 10/10/16 10/10/16 10/10/16 04:00 04:01 05:00 Temperature 98.4 F Pulse Rate 69 71 72 Pulse Rate [ 71 From Monitor] Respiratory 22 22 21 Rate Blood Pressure 171/75 125/71 159/81 O2 Sat by Pulse 100 100 100 Oximetry 10/10/16 10/10/16 10/10/16 06:00 07:01 07:53 Temperature 98.1 F Pulse Rate 73 71 Pulse Rate [ From Monitor] Respiratory 22 22 Rate Blood Pressure 159/81 92/41 O2 Sat by Pulse 100 100 Oximetry 10/10/16 10/10/16 10/10/16 08:01 08:19 08:49 Temperature Pulse Rate 77 69 Pulse Rate [ 78 From Monitor] Respiratory 26 H 17 24 Rate Blood Pressure 133/66 133/66 O2 Sat by Pulse 100 100 Oximetry 10/10/16 09:00 Temperature Pulse Rate 80 Pulse Rate [ From Monitor] Respiratory 27 H Rate Blood Pressure 150/86 O2 Sat by Pulse 100 Oximetry - Lab 10/11/16 04:15 10/11/16 04:15 Most recent lab results Calcium 8.2 mg/dL (8.4-10.2) L 10/10/16 05:00 Phosphorus 5.10 mg/dL (2.5-4.5) H 10/10/16 05:00 Magnesium 2.40 mg/dL (1.7-2.3) H 10/10/16 05:00 Urine Creatinine 54.8 mg/dL (0.1-20.0) H 09/21/16 12:00 Urine Sodium 36 mEq/L 09/16/16 19:19 Urine Total Protein 16 mg/dL (5-11.8) H 09/16/16 19:19
--- NOTE | 2016-10-10 10:49 | Progress Note ---
Assessment and Plan - Patient Problems (1) Acute respiratory failure with hypoxia Current Visit: Yes Status: Acute Plan to address problem: Continue with mechanical ventilatory support Lung protective strategies -VAP bundle, HOB >40 - SCDs for VTE prophylaxis - Stress ulcer prophylaxis -Bronchodilators- h/o asthma -VAP bundle addressed -Herndon catheter in this critically ill patient - TPN, accucheck with glycemic control - Agitation management/analgesia - daily SATs and SBTs as tolerated - ABGs and CXR -Trach care per RT (2) Acute CVA (cerebrovascular accident) Current Visit: Yes Status: Acute Plan to address problem: CTScan -subacute MCA territory infarct Secondary stroke prophylaxis Neuroprotective measures Aspiration precautions Neurology following (3) Chronic renal insufficiency Current Visit: Yes Status: Acute Qualifiers: Chronic kidney disease stage: C Plan to address problem: UF/HD per renal service Renal following (4) Uncontrolled hypertension Current Visit: Yes Status: Acute Plan to address problem: Monitor closely and adjust anti-hypertensive medications (5) Leukocytosis (leucocytosis) Current Visit: Yes Status: Acute Qualifiers: Leukocytosis type: leukemoid reaction Qualified Code(s): D72.823 - Leukemoid reaction Plan to address problem: On antibiotics and antifungal per ID service. Discussed with ID attending re my concerns with her leukocytosis. Monitor for now while on antibiotics and antifungal, abdominal imaging if no improvement in the next 24 hours. (6) Dislodged gastrostomy tube Current Visit: Yes Status: Acute Plan to address problem: With bowel perforation. Purulent drainage from JUAN drain. Remains NPO and on TPN for nutritional support. GI/Surgery following (7) Fungemia Current Visit: Yes Status: Acute Plan to address problem: Anti-fungal therapy per ID service. Subjective Date of service: 10/10/16 Principal diagnosis: hematochezia Interval history: Seen and examined. Vitals, labs, medications, chart reviewed. On mechanical ventilatory support. On TPN, with purulent drainage from the JUAN drain. No fevers Currently no further surgical interventions Per night staff, possible vaginal bleed Acute drop in the hemoglobin for PRBC transfusion today with HD. Her son and cousin are at the bedside Objective - Exam Narrative Exam: Gen appearance: s/p Trach to vent. No patient- ventilator dysynchrony,Tolerating PSV trials. Appears to track my voice HEENT: Atraumatic, normocephalic Neck: Tracheostomy Lungs: Clear to auscultation bilaterally, no crackles or wheezes Heart :S1 and S2 irregular, no murmurs, rubs or gallop Abdomen: Soft, surgical drain, dressing over left upper quadrant, bowel sounds present Extremities : bilateral edema, upper and lower extremities- anarsaca, peripheral edema Neuro: Does not follow commands, awake and alert Vital Signs - 12hr 10/09/16 10/10/16 10/10/16 23:00 00:00 01:00 Temperature 98.4 F Pulse Rate 83 78 89 Pulse Rate [ From Monitor] Respiratory 20 19 27 H Rate Blood Pressure 138/79 126/66 158/90 O2 Sat by Pulse 100 100 100 Oximetry 10/10/16 10/10/16 10/10/16 02:00 02:42 03:00 Temperature Pulse Rate 92 H 83 Pulse Rate [ From Monitor] Respiratory 27 H Rate Blood Pressure 170/92 186/101 125/71 O2 Sat by Pulse 100 Oximetry 10/10/16 10/10/16 10/10/16 04:00 04:01 05:00 Temperature 98.4 F Pulse Rate 69 71 72 Pulse Rate [ 71 From Monitor] Respiratory 22 22 21 Rate Blood Pressure 171/75 125/71 159/81 O2 Sat by Pulse 100 100 100 Oximetry 10/10/16 10/10/16 10/10/16 06:00 07:01 07:53 Temperature 98.1 F Pulse Rate 73 71 Pulse Rate [ From Monitor] Respiratory 22 22 Rate Blood Pressure 159/81 92/41 O2 Sat by Pulse 100 100 Oximetry 10/10/16 10/10/16 10/10/16 08:01 08:19 08:49 Temperature Pulse Rate 77 69 Pulse Rate [ 78 From Monitor] Respiratory 26 H 17 24 Rate Blood Pressure 133/66 133/66 O2 Sat by Pulse 100 100 Oximetry 10/10/16 09:00 Temperature Pulse Rate 80 Pulse Rate [ From Monitor] Respiratory 27 H Rate Blood Pressure 150/86 O2 Sat by Pulse 100 Oximetry Constitutional: no acute distress, other (grimaces with moving) Eyes: non-icteric, other (tracheostomy tube in midline of neck) ENT: oropharynx moist Neck: supple, no lymphadenopathy Effort: mildly labored Ascultation: Bilateral: clear, diminished breath sounds (bases), rales, rhonchi (bases) Cardiovascular: regular rate and rhythm Gastrointestinal: hypoactive bowel sounds, soft, non-tender, non-distended Integumentary: other (erythema to skin of back with some healing areas; no obvious TEN's features) Extremities: no cyanosis, no edema, pulses normal, no ischemia or petechiae Neurologic: pupils equal and round, other (sedated) Psychiatric: other (unable to assess) CBC and BMP: 10/11/16 04:15 10/11/16 04:15 ABG, PT/INR, D-dimer: ABG POC ABG pH 7.437 (7.35-7.45) 10/08/16 12:49 POC ABG pCO2 28.2 (35-45) L 10/08/16 12:49 POC ABG pO2 111 (80-105) H 10/08/16 12:49 POC ABG HCO3 19.0 10/08/16 12:49 POC ABG Total CO2 20 10/08/16 12:49 POC ABG O2 Sat 99 10/08/16 12:49 PT/INR, D-dimer PT 19.0 Sec. (12.2-14.9) H 10/09/16 03:45 INR 1.51 (0.87-1.13) H 10/09/16 03:45 Abnormal lab findings: Abnormal Labs 09/03/16 09/03/16 09/03/16 12:12 15:07 16:20 WBC RBC Hgb Hct MCV MCH MCHC RDW Plt Count Lymph % (Auto) [place] % (Auto) Lymph # [place] # Seg Neutrophils % Seg Neuts % (Manual) Lymphocytes % (Manual) Monocytes % (Manual) Eosinophils % (Manual) Basophils % (Manual) Nucleated RBC % Seg Neutrophils # Seg Neutrophils # Man Lymphocytes # (Manual) Monocytes # (Manual) Eosinophils # (Manual) PT INR Fibrinogen dRVVT Confirm Interp Factor V Activity POC ABG pH 7.452 H POC ABG pCO2 POC ABG pO2 Sodium Potassium Chloride Carbon Dioxide BUN Creatinine Glucose POC Glucose 178 H Lactic Acid Calcium Phosphorus 2.20 L Magnesium 1.60 L Direct Bilirubin ALT Alkaline Phosphatase Troponin T C-Reactive Protein Total Protein Albumin Triglycerides Cholesterol LDL Cholesterol Direct HDL Cholesterol Urine WBC (Auto) Urine Creatinine Urine Total Protein Vancomycin Trough Rheumatoid Factor Complement C4 Crossmatch 09/03/16 09/03/16 09/03/16 17:57 17:58 23:50 WBC RBC Hgb Hct MCV MCH MCHC RDW Plt Count Lymph % (Auto) [place] % (Auto) Lymph # [place] # Seg Neutrophils % Seg Neuts % (Manual) Lymphocytes % (Manual) Monocytes % (Manual) Eosinophils % (Manual) Basophils % (Manual) Nucleated RBC % Seg Neutrophils # Seg Neutrophils # Man Lymphocytes # (Manual) Monocytes # (Manual) Eosinophils # (Manual) PT INR Fibrinogen dRVVT Confirm Interp Factor V Activity POC ABG pH POC ABG pCO2 POC ABG pO2 Sodium Potassium Chloride Carbon Dioxide BUN Creatinine Glucose POC Glucose 162 H 145 H Lactic Acid Calcium Phosphorus 2.30 L Magnesium Direct Bilirubin ALT Alkaline Phosphatase Troponin T C-Reactive Protein Total Protein Albumin Triglycerides Cholesterol LDL Cholesterol Direct HDL Cholesterol Urine WBC (Auto) Urine Creatinine Urine Total Protein Vancomycin Trough Rheumatoid Factor Complement C4 Crossmatch 09/04/16 09/04/16 09/04/16 03:31 03:31 05:42 WBC RBC Hgb 9.7 L D Hct MCV 72 L MCH 23 L MCHC RDW 17.5 H Plt Count Lymph % (Auto) 11.1 L [place] % (Auto) Lymph # [place] # Seg Neutrophils % 84.3 H Seg Neuts % (Manual) Lymphocytes % (Manual) Monocytes % (Manual) Eosinophils % (Manual) Basophils % (Manual) Nucleated RBC % Seg Neutrophils # 8.9 H Seg Neutrophils # Man Lymphocytes # (Manual) Monocytes # (Manual) Eosinophils # (Manual) PT INR Fibrinogen dRVVT Confirm Interp Factor V Activity POC ABG pH POC ABG pCO2 POC ABG pO2 Sodium 135 L Potassium 2.9 L* Chloride 97.2 L Carbon Dioxide 19 L BUN Creatinine 1.7 H Glucose 170 H POC Glucose 152 H Lactic Acid Calcium Phosphorus Magnesium Direct Bilirubin ALT Alkaline Phosphatase Troponin T C-Reactive Protein Total Protein Albumin Triglycerides 160 H Cholesterol LDL Cholesterol Direct HDL Cholesterol 31 L Urine WBC (Auto) Urine Creatinine Urine Total Protein Vancomycin Trough Rheumatoid Factor Complement C4 Crossmatch 09/04/16 09/04/16 09/04/16 11:34 17:46 23:29 WBC RBC Hgb Hct MCV MCH MCHC RDW Plt Count Lymph % (Auto) [place] % (Auto) Lymph # [place] # Seg Neutrophils % Seg Neuts % (Manual) Lymphocytes % (Manual) Monocytes % (Manual) Eosinophils % (Manual) Basophils % (Manual) Nucleated RBC % Seg Neutrophils # Seg Neutrophils # Man Lymphocytes # (Manual) Monocytes # (Manual) Eosinophils # (Manual) PT INR Fibrinogen dRVVT Confirm Interp Factor V Activity POC ABG pH POC ABG pCO2 POC ABG pO2 Sodium Potassium Chloride Carbon Dioxide BUN Creatinine Glucose POC Glucose 165 H 210 H 139 H Lactic Acid Calcium Phosphorus Magnesium Direct Bilirubin ALT Alkaline Phosphatase Troponin T C-Reactive Protein Total Protein Albumin Triglycerides Cholesterol LDL Cholesterol Direct HDL Cholesterol Urine WBC (Auto) Urine Creatinine Urine Total Protein Vancomycin Trough Rheumatoid Factor Complement C4 Crossmatch 09/05/16 09/05/16 09/05/16 04:05 04:05 05:38 WBC RBC Hgb Hct MCV 76 L D MCH 23 L MCHC RDW 17.8 H Plt Count Lymph % (Auto) [place] % (Auto) Lymph # [place] # Seg Neutrophils % Seg Neuts % (Manual) Lymphocytes % (Manual) Monocytes % (Manual) Eosinophils % (Manual) Basophils % (Manual) Nucleated RBC % Seg Neutrophils # Seg Neutrophils # Man Lymphocytes # (Manual) Monocytes # (Manual) Eosinophils # (Manual) PT INR Fibrinogen dRVVT Confirm Interp Factor V Activity POC ABG pH POC ABG pCO2 POC ABG pO2 Sodium 134 L Potassium Chloride Carbon Dioxide 18 L BUN Creatinine 1.8 H Glucose 192 H POC Glucose 175 H Lactic Acid Calcium Phosphorus Magnesium Direct Bilirubin ALT Alkaline Phosphatase Troponin T C-Reactive Protein Total Protein Albumin Triglycerides Cholesterol LDL Cholesterol Direct HDL Cholesterol Urine WBC (Auto) Urine Creatinine Urine Total Protein Vancomycin Trough Rheumatoid Factor Complement C4 Crossmatch 09/05/16 09/05/16 09/05/16 11:38 17:48 23:22 WBC RBC Hgb Hct MCV MCH MCHC RDW Plt Count Lymph % (Auto) [place] % (Auto) Lymph # [place] # Seg Neutrophils % Seg Neuts % (Manual) Lymphocytes % (Manual) Monocytes % (Manual) Eosinophils % (Manual) Basophils % (Manual) Nucleated RBC % Seg Neutrophils # Seg Neutrophils # Man Lymphocytes # (Manual) Monocytes # (Manual) Eosinophils # (Manual) PT INR Fibrinogen dRVVT Confirm Interp Factor V Activity POC ABG pH POC ABG pCO2 POC ABG pO2 Sodium Potassium Chloride Carbon Dioxide BUN Creatinine Glucose POC Glucose 164 H 186 H 195 H Lactic Acid Calcium Phosphorus Magnesium Direct Bilirubin ALT Alkaline Phosphatase Troponin T C-Reactive Protein Total Protein Albumin Triglycerides Cholesterol LDL Cholesterol Direct HDL Cholesterol Urine WBC (Auto) Urine Creatinine Urine Total Protein Vancomycin Trough Rheumatoid Factor Complement C4 Crossmatch 07/09/06/16 09/06/16 04:12 05:59 07:32 WBC RBC Hgb Hct MCV MCH MCHC RDW Plt Count Lymph % (Auto) [place] % (Auto) Lymph # [place] # Seg Neutrophils % Seg Neuts % (Manual) Lymphocytes % (Manual) Monocytes % (Manual) Eosinophils % (Manual) Basophils % (Manual) Nucleated RBC % Seg Neutrophils # Seg Neutrophils # Man Lymphocytes # (Manual) Monocytes # (Manual) Eosinophils # (Manual) PT INR Fibrinogen dRVVT Confirm Interp Factor V Activity POC ABG pH 7.514 H POC ABG pCO2 29.1 L POC ABG pO2 72 L Sodium 133 L Potassium 3.4 L Chloride 94.9 L Carbon Dioxide 19 L BUN 30 H Creatinine 2.1 H Glucose 139 H POC Glucose 146 H Lactic Acid Calcium Phosphorus Magnesium Direct Bilirubin ALT Alkaline Phosphatase Troponin T C-Reactive Protein Total Protein Albumin Triglycerides Cholesterol LDL Cholesterol Direct HDL Cholesterol Urine WBC (Auto) Urine Creatinine Urine Total Protein Vancomycin Trough Rheumatoid Factor Complement C4 Crossmatch 09/06/16 09/06/16 09/06/16 11:57 17:58 19:02 WBC RBC Hgb Hct MCV MCH MCHC RDW Plt Count Lymph % (Auto) [place] % (Auto) Lymph # [place] # Seg Neutrophils % Seg Neuts % (Manual) Lymphocytes % (Manual) Monocytes % (Manual) Eosinophils % (Manual) Basophils % (Manual) Nucleated RBC % Seg Neutrophils # Seg Neutrophils # Man Lymphocytes # (Manual) Monocytes # (Manual) Eosinophils # (Manual) PT INR Fibrinogen dRVVT Confirm Interp Factor V Activity POC ABG pH 7.465 H POC ABG pCO2 32.0 L POC ABG pO2 Sodium Potassium Chloride Carbon Dioxide BUN Creatinine Glucose POC Glucose 165 H 160 H Lactic Acid Calcium Phosphorus Magnesium Direct Bilirubin ALT Alkaline Phosphatase Troponin T C-Reactive Protein Total Protein Albumin Triglycerides Cholesterol LDL Cholesterol Direct HDL Cholesterol Urine WBC (Auto) Urine Creatinine Urine Total Protein Vancomycin Trough Rheumatoid Factor Complement C4 Crossmatch 09/06/16 09/07/16 09/07/16 23:45 02:47 02:47 WBC RBC Hgb Hct MCV MCH MCHC RDW Plt Count Lymph % (Auto) [place] % (Auto) Lymph # [place] # Seg Neutrophils % Seg Neuts % (Manual) Lymphocytes % (Manual) Monocytes % (Manual) Eosinophils % (Manual) Basophils % (Manual) Nucleated RBC % Seg Neutrophils # Seg Neutrophils # Man Lymphocytes # (Manual) Monocytes # (Manual) Eosinophils # (Manual) PT INR Fibrinogen dRVVT Confirm Interp Factor V Activity POC ABG pH POC ABG pCO2 POC ABG pO2 Sodium Potassium Chloride Carbon Dioxide BUN Creatinine Glucose POC Glucose 204 H Lactic Acid Calcium Phosphorus Magnesium Direct Bilirubin ALT Alkaline Phosphatase Troponin T C-Reactive Protein Total Protein Albumin Triglycerides Cholesterol LDL Cholesterol Direct HDL Cholesterol Urine WBC (Auto) 68.0 H Urine Creatinine 106.1 H Urine Total Protein Vancomycin Trough Rheumatoid Factor Complement C4 Crossmatch 09/07/16 09/07/16 09/07/16 04:50 06:19 06:39 WBC RBC Hgb Hct MCV MCH MCHC RDW Plt Count Lymph % (Auto) [place] % (Auto) Lymph # [place] # Seg Neutrophils % Seg Neuts % (Manual) Lymphocytes % (Manual) Monocytes % (Manual) Eosinophils % (Manual) Basophils % (Manual) Nucleated RBC % Seg Neutrophils # Seg Neutrophils # Man Lymphocytes # (Manual) Monocytes # (Manual) Eosinophils # (Manual) PT INR Fibrinogen dRVVT Confirm Interp Factor V Activity POC ABG pH 7.457 H POC ABG pCO2 32.1 L POC ABG pO2 76 L Sodium 132 L Potassium Chloride 94.7 L Carbon Dioxide BUN 53 H Creatinine 2.9 H Glucose 151 H POC Glucose 149 H Lactic Acid Calcium Phosphorus Magnesium Direct Bilirubin ALT Alkaline Phosphatase Troponin T C-Reactive Protein Total Protein Albumin Triglycerides Cholesterol LDL Cholesterol Direct HDL Cholesterol Urine WBC (Auto) Urine Creatinine Urine Total Protein Vancomycin Trough Rheumatoid Factor Complement C4 Crossmatch 09/07/16 09/07/16 09/07/16 09:20 11:43 11:43 WBC 19.4 H RBC Hgb 8.3 L Hct 26.4 L D MCV 72 L D MCH 22 L MCHC RDW 17.9 H Plt Count Lymph % (Auto) 8.5 L [place] % (Auto) Lymph # Baxter # 1.0 H Seg Neutrophils % 85.8 H Seg Neuts % (Manual) Lymphocytes % (Manual) Monocytes % (Manual) Eosinophils % (Manual) Basophils % (Manual) Nucleated RBC % Seg Neutrophils # 16.6 H Seg Neutrophils # Man Lymphocytes # (Manual) Monocytes # (Manual) Eosinophils # (Manual) PT INR Fibrinogen dRVVT Confirm Interp Factor V Activity POC ABG pH POC ABG pCO2 POC ABG pO2 Sodium 134 L Potassium Chloride 97.2 L Carbon Dioxide 20 L BUN 58 H Creatinine 2.9 H Glucose 147 H POC Glucose Lactic Acid Calcium Phosphorus 2.40 L Magnesium 2.40 H Direct Bilirubin ALT Alkaline Phosphatase Troponin T C-Reactive Protein Total Protein 5.8 L Albumin 2.2 L Triglycerides Cholesterol LDL Cholesterol Direct HDL Cholesterol Urine WBC (Auto) Urine Creatinine Urine Total Protein Vancomycin Trough Rheumatoid Factor Complement C4 58 H Crossmatch 09/07/16 09/07/16 09/07/16 11:50 16:00 17:31 WBC RBC Hgb Hct MCV MCH MCHC RDW Plt Count Lymph % (Auto) [place] % (Auto) Lymph # [place] # Seg Neutrophils % Seg Neuts % (Manual) Lymphocytes % (Manual) Monocytes % (Manual) Eosinophils % (Manual) Basophils % (Manual) Nucleated RBC % Seg Neutrophils # Seg Neutrophils # Man Lymphocytes # (Manual) Monocytes # (Manual) Eosinophils # (Manual) PT INR Fibrinogen dRVVT Confirm Interp Factor V Activity POC ABG pH POC ABG pCO2 POC ABG pO2 158 H Sodium Potassium Chloride Carbon Dioxide BUN Creatinine Glucose POC Glucose 175 H Lactic Acid Calcium Phosphorus Magnesium Direct Bilirubin ALT Alkaline Phosphatase Troponin T C-Reactive Protein Total Protein Albumin Triglycerides Cholesterol LDL Cholesterol Direct HDL Cholesterol Urine WBC (Auto) Urine Creatinine 66.3 H Urine Total Protein Vancomycin Trough Rheumatoid Factor Complement C4 Crossmatch 09/07/16 09/08/16 09/08/16 23:50 05:46 06:18 WBC 17.8 H RBC 3.58 L Hgb 8.1 L Hct 25.5 L MCV 71 L MCH 23 L MCHC RDW 18.4 H Plt Count Lymph % (Auto) [place] % (Auto) Lymph # [place] # Seg Neutrophils % Seg Neuts % (Manual) 92.0 H Lymphocytes % (Manual) 6.0 L Monocytes % (Manual) Eosinophils % (Manual) Basophils % (Manual) Nucleated RBC % Seg Neutrophils # Seg Neutrophils # Man 16.4 H Lymphocytes # (Manual) 1.1 L Monocytes # (Manual) Eosinophils # (Manual) PT INR Fibrinogen dRVVT Confirm Interp Factor V Activity POC ABG pH POC ABG pCO2 34.3 L POC ABG pO2 71 L Sodium Potassium Chloride Carbon Dioxide BUN Creatinine Glucose POC Glucose 216 H Lactic Acid Calcium Phosphorus Magnesium Direct Bilirubin ALT Alkaline Phosphatase Troponin T C-Reactive Protein Total Protein Albumin Triglycerides Cholesterol LDL Cholesterol Direct HDL Cholesterol Urine WBC (Auto) Urine Creatinine Urine Total Protein Vancomycin Trough Rheumatoid Factor Complement C4 Crossmatch 09/08/16 09/08/16 09/08/16 06:18 06:51 10:55 WBC RBC Hgb Hct MCV MCH MCHC RDW Plt Count Lymph % (Auto) [place] % (Auto) Lymph # [place] # Seg Neutrophils % Seg Neuts % (Manual) Lymphocytes % (Manual) Monocytes % (Manual) Eosinophils % (Manual) Basophils % (Manual) Nucleated RBC % Seg Neutrophils # Seg Neutrophils # Man Lymphocytes # (Manual) Monocytes # (Manual) Eosinophils # (Manual) PT INR Fibrinogen dRVVT Confirm Interp Factor V Activity POC ABG pH POC ABG pCO2 POC ABG pO2 Sodium 133 L Potassium Chloride 96.9 L Carbon Dioxide 20 L BUN 63 H Creatinine 2.7 H Glucose 195 H POC Glucose 204 H 169 H Lactic Acid Calcium Phosphorus Magnesium Direct Bilirubin ALT Alkaline Phosphatase Troponin T C-Reactive Protein Total Protein Albumin Triglycerides Cholesterol LDL Cholesterol Direct HDL Cholesterol Urine WBC (Auto) Urine Creatinine Urine Total Protein Vancomycin Trough Rheumatoid Factor Complement C4 Crossmatch 09/08/16 09/08/16 09/08/16 11:48 11:48 11:48 WBC RBC Hgb Hct MCV MCH MCHC RDW Plt Count Lymph % (Auto) [place] % (Auto) Lymph # [place] # Seg Neutrophils % Seg Neuts % (Manual) Lymphocytes % (Manual) Monocytes % (Manual) Eosinophils % (Manual) Basophils % (Manual) Nucleated RBC % Seg Neutrophils # Seg Neutrophils # Man Lymphocytes # (Manual) Monocytes # (Manual) Eosinophils # (Manual) PT INR Fibrinogen 750 H dRVVT Confirm Interp Factor V Activity POC ABG pH POC ABG pCO2 POC ABG pO2 Sodium Potassium Chloride Carbon Dioxide BUN Creatinine Glucose POC Glucose Lactic Acid Calcium Phosphorus Magnesium Direct Bilirubin ALT Alkaline Phosphatase Troponin T C-Reactive Protein 15.70 H Total Protein Albumin Triglycerides Cholesterol LDL Cholesterol Direct HDL Cholesterol Urine WBC (Auto) Urine Creatinine Urine Total Protein Vancomycin Trough Rheumatoid Factor 24 H Complement C4 Crossmatch 09/08/16 09/08/16 09/09/16 15:35 18:25 00:24 WBC RBC Hgb Hct MCV MCH MCHC RDW Plt Count Lymph % (Auto) [place] % (Auto) Lymph # [place] # Seg Neutrophils % Seg Neuts % (Manual) Lymphocytes % (Manual) Monocytes % (Manual) Eosinophils % (Manual) Basophils % (Manual) Nucleated RBC % Seg Neutrophils # Seg Neutrophils # Man Lymphocytes # (Manual) Monocytes # (Manual) Eosinophils # (Manual) PT INR Fibrinogen dRVVT Confirm Interp Factor V Activity 182 H POC ABG pH POC ABG pCO2 POC ABG pO2 Sodium Potassium Chloride Carbon Dioxide BUN Creatinine Glucose POC Glucose 184 H 216 H Lactic Acid Calcium Phosphorus Magnesium Direct Bilirubin ALT Alkaline Phosphatase Troponin T C-Reactive Protein Total Protein Albumin Triglycerides Cholesterol LDL Cholesterol Direct HDL Cholesterol Urine WBC (Auto) Urine Creatinine Urine Total Protein Vancomycin Trough Rheumatoid Factor Complement C4 Crossmatch 09/09/16 09/09/16 09/09/16 03:00 03:00 04:04 WBC 27.9 H RBC Hgb 8.7 L Hct 28.1 L MCV 72 L MCH 22 L MCHC RDW 18.4 H Plt Count 485 H Lymph % (Auto) [place] % (Auto) Lymph # [place] # Seg Neutrophils % Seg Neuts % (Manual) 77.0 H Lymphocytes % (Manual) 9.0 L Monocytes % (Manual) Eosinophils % (Manual) Basophils % (Manual) Nucleated RBC % Seg Neutrophils # Seg Neutrophils # Man 21.5 H Lymphocytes # (Manual) Monocytes # (Manual) 2.0 H Eosinophils # (Manual) PT INR Fibrinogen dRVVT Confirm Interp Factor V Activity POC ABG pH POC ABG pCO2 POC ABG pO2 121 H Sodium 135 L Potassium Chloride 96.3 L Carbon Dioxide 21 L BUN 83 H Creatinine 3.0 H Glucose 135 H POC Glucose Lactic Acid Calcium Phosphorus Magnesium Direct Bilirubin ALT Alkaline Phosphatase Troponin T C-Reactive Protein Total Protein Albumin Triglycerides Cholesterol LDL Cholesterol Direct HDL Cholesterol Urine WBC (Auto) Urine Creatinine Urine Total Protein Vancomycin Trough Rheumatoid Factor Complement C4 Crossmatch 09/09/16 09/09/16 09/09/16 05:41 11:55 14:13 WBC RBC Hgb Hct MCV MCH MCHC RDW Plt Count Lymph % (Auto) [place] % (Auto) Lymph # [place] # Seg Neutrophils % Seg Neuts % (Manual) Lymphocytes % (Manual) Monocytes % (Manual) Eosinophils % (Manual) Basophils % (Manual) Nucleated RBC % Seg Neutrophils # Seg Neutrophils # Man Lymphocytes # (Manual) Monocytes # (Manual) Eosinophils # (Manual) PT INR Fibrinogen dRVVT Confirm Interp Factor V Activity POC ABG pH POC ABG pCO2 POC ABG pO2 Sodium Potassium Chloride Carbon Dioxide BUN Creatinine Glucose POC Glucose 155 H 186 H Lactic Acid Calcium Phosphorus Magnesium Direct Bilirubin ALT Alkaline Phosphatase Troponin T C-Reactive Protein Total Protein Albumin Triglycerides Cholesterol LDL Cholesterol Direct HDL Cholesterol Urine WBC (Auto) 25.0 H Urine Creatinine Urine Total Protein Vancomycin Trough Rheumatoid Factor Complement C4 Crossmatch 09/09/16 09/09/16 09/10/16 17:33 23:13 05:09 WBC RBC Hgb Hct MCV MCH MCHC RDW Plt Count Lymph % (Auto) [place] % (Auto) Lymph # [place] # Seg Neutrophils % Seg Neuts % (Manual) Lymphocytes % (Manual) Monocytes % (Manual) Eosinophils % (Manual) Basophils % (Manual) Nucleated RBC % Seg Neutrophils # Seg Neutrophils # Man Lymphocytes # (Manual) Monocytes # (Manual) Eosinophils # (Manual) PT INR Fibrinogen dRVVT Confirm Interp Factor V Activity POC ABG pH POC ABG pCO2 POC ABG pO2 74 L Sodium Potassium Chloride Carbon Dioxide BUN Creatinine Glucose POC Glucose 211 H 215 H Lactic Acid Calcium Phosphorus Magnesium Direct Bilirubin ALT Alkaline Phosphatase Troponin T C-Reactive Protein Total Protein Albumin Triglycerides Cholesterol LDL Cholesterol Direct HDL Cholesterol Urine WBC (Auto) Urine Creatinine Urine Total Protein Vancomycin Trough Rheumatoid Factor Complement C4 Crossmatch 09/10/16 09/10/16 09/10/16 05:17 05:17 11:31 WBC 15.8 H RBC 3.25 L Hgb 7.3 L Hct 22.9 L MCV 71 L MCH 23 L MCHC RDW 18.4 H Plt Count Lymph % (Auto) [place] % (Auto) Lymph # [place] # Seg Neutrophils % Seg Neuts % (Manual) 91.0 H Lymphocytes % (Manual) 4.0 L Monocytes % (Manual) Eosinophils % (Manual) Basophils % (Manual) Nucleated RBC % Seg Neutrophils # Seg Neutrophils # Man 14.4 H Lymphocytes # (Manual) 0.6 L Monocytes # (Manual) Eosinophils # (Manual) PT INR Fibrinogen dRVVT Confirm Interp Factor V Activity POC ABG pH POC ABG pCO2 POC ABG pO2 Sodium Potassium Chloride Carbon Dioxide 21 L BUN 93 H Creatinine 2.9 H Glucose 146 H POC Glucose 188 H Lactic Acid Calcium 8.1 L Phosphorus Magnesium Direct Bilirubin ALT Alkaline Phosphatase Troponin T C-Reactive Protein Total Protein Albumin Triglycerides Cholesterol LDL Cholesterol Direct HDL Cholesterol Urine WBC (Auto) Urine Creatinine Urine Total Protein Vancomycin Trough Rheumatoid Factor Complement C4 Crossmatch 09/10/16 09/10/16 09/10/16 13:17 17:20 23:32 WBC RBC Hgb Hct MCV MCH MCHC RDW Plt Count Lymph % (Auto) [place] % (Auto) Lymph # [place] # Seg Neutrophils % Seg Neuts % (Manual) Lymphocytes % (Manual) Monocytes % (Manual) Eosinophils % (Manual) Basophils % (Manual) Nucleated RBC % Seg Neutrophils # Seg Neutrophils # Man Lymphocytes # (Manual) Monocytes # (Manual) Eosinophils # (Manual) PT INR Fibrinogen dRVVT Confirm Interp Factor V Activity POC ABG pH POC ABG pCO2 POC ABG pO2 Sodium Potassium Chloride Carbon Dioxide BUN Creatinine Glucose POC Glucose 199 H 186 H Lactic Acid Calcium Phosphorus Magnesium Direct Bilirubin ALT Alkaline Phosphatase Troponin T C-Reactive Protein Total Protein Albumin Triglycerides Cholesterol LDL Cholesterol Direct HDL Cholesterol Urine WBC (Auto) Urine Creatinine Urine Total Protein Vancomycin Trough Rheumatoid Factor Complement C4 Crossmatch See Detail 09/11/16 09/11/16 09/11/16 05:10 05:10 05:17 WBC 28.4 H RBC Hgb 9.2 L Hct 29.3 L D MCV 73 L MCH 23 L MCHC RDW 18.9 H Plt Count 452 H Lymph % (Auto) [place] % (Auto) Lymph # [place] # Seg Neutrophils % Seg Neuts % (Manual) 89.5 H Lymphocytes % (Manual) 2.0 L Monocytes % (Manual) Eosinophils % (Manual) Basophils % (Manual) Nucleated RBC % Seg Neutrophils # Seg Neutrophils # Man 25.4 H Lymphocytes # (Manual) 0.6 L Monocytes # (Manual) 1.3 H Eosinophils # (Manual) PT INR Fibrinogen dRVVT Confirm Interp Factor V Activity POC ABG pH POC ABG pCO2 POC ABG pO2 Sodium 136 L Potassium Chloride Carbon Dioxide 18 L BUN 107 H Creatinine 2.6 H Glucose 187 H POC Glucose 230 H Lactic Acid Calcium 8.3 L Phosphorus Magnesium Direct Bilirubin ALT Alkaline Phosphatase Troponin T C-Reactive Protein Total Protein Albumin Triglycerides Cholesterol LDL Cholesterol Direct HDL Cholesterol Urine WBC (Auto) Urine Creatinine Urine Total Protein Vancomycin Trough Rheumatoid Factor Complement C4 Crossmatch 09/11/16 09/11/16 09/11/16 05:55 12:02 17:32 WBC RBC Hgb Hct MCV MCH MCHC RDW Plt Count Lymph % (Auto) [place] % (Auto) Lymph # [place] # Seg Neutrophils % Seg Neuts % (Manual) Lymphocytes % (Manual) Monocytes % (Manual) Eosinophils % (Manual) Basophils % (Manual) Nucleated RBC % Seg Neutrophils # Seg Neutrophils # Man Lymphocytes # (Manual) Monocytes # (Manual) Eosinophils # (Manual) PT INR Fibrinogen dRVVT Confirm Interp Factor V Activity POC ABG pH POC ABG pCO2 33.8 L POC ABG pO2 Sodium Potassium Chloride Carbon Dioxide BUN Creatinine Glucose POC Glucose 191 H 239 H Lactic Acid Calcium Phosphorus Magnesium Direct Bilirubin ALT Alkaline Phosphatase Troponin T C-Reactive Protein Total Protein Albumin Triglycerides Cholesterol LDL Cholesterol Direct HDL Cholesterol Urine WBC (Auto) Urine Creatinine Urine Total Protein Vancomycin Trough Rheumatoid Factor Complement C4 Crossmatch 09/11/16 09/12/16 09/12/16 23:52 05:09 05:32 WBC RBC Hgb Hct MCV MCH MCHC RDW Plt Count Lymph % (Auto) [place] % (Auto) Lymph # [place] # Seg Neutrophils % Seg Neuts % (Manual) Lymphocytes % (Manual) Monocytes % (Manual) Eosinophils % (Manual) Basophils % (Manual) Nucleated RBC % Seg Neutrophils # Seg Neutrophils # Man Lymphocytes # (Manual) Monocytes # (Manual) Eosinophils # (Manual) PT INR Fibrinogen dRVVT Confirm Interp Factor V Activity POC ABG pH POC ABG pCO2 34.6 L POC ABG pO2 Sodium Potassium Chloride Carbon Dioxide BUN Creatinine Glucose POC Glucose 265 H 184 H Lactic Acid Calcium Phosphorus Magnesium Direct Bilirubin ALT Alkaline Phosphatase Troponin T C-Reactive Protein Total Protein Albumin Triglycerides Cholesterol LDL Cholesterol Direct HDL Cholesterol Urine WBC (Auto) Urine Creatinine Urine Total Protein Vancomycin Trough Rheumatoid Factor Complement C4 Crossmatch 09/12/16 09/12/16 09/12/16 06:45 06:45 07:22 WBC 31.7 H RBC 3.54 L Hgb 8.3 L Hct 25.9 L MCV 73 L MCH 23 L MCHC RDW 18.9 H Plt Count Lymph % (Auto) [place] % (Auto) Lymph # [place] # Seg Neutrophils % Seg Neuts % (Manual) 88.5 H Lymphocytes % (Manual) 4.5 L Monocytes % (Manual) Eosinophils % (Manual) Basophils % (Manual) Nucleated RBC % Seg Neutrophils # Seg Neutrophils # Man 28.1 H Lymphocytes # (Manual) Monocytes # (Manual) 1.0 H Eosinophils # (Manual) PT INR Fibrinogen dRVVT Confirm Interp Factor V Activity POC ABG pH POC ABG pCO2 POC ABG pO2 Sodium Potassium Chloride Carbon Dioxide 20 L BUN 115 H Creatinine 2.7 H Glucose 165 H POC Glucose Lactic Acid Calcium 8.0 L Phosphorus Magnesium Direct Bilirubin ALT Alkaline Phosphatase Troponin T C-Reactive Protein Total Protein Albumin Triglycerides 217 H Cholesterol LDL Cholesterol Direct HDL Cholesterol Urine WBC (Auto) Urine Creatinine Urine Total Protein Vancomycin Trough Rheumatoid Factor Complement C4 Crossmatch 09/12/16 09/12/16 09/12/16 07:22 09:59 12:21 WBC RBC Hgb Hct MCV MCH MCHC RDW Plt Count Lymph % (Auto) [place] % (Auto) Lymph # [place] # Seg Neutrophils % Seg Neuts % (Manual) Lymphocytes % (Manual) Monocytes % (Manual) Eosinophils % (Manual) Basophils % (Manual) Nucleated RBC % Seg Neutrophils # Seg Neutrophils # Man Lymphocytes # (Manual) Monocytes # (Manual) Eosinophils # (Manual) PT INR Fibrinogen dRVVT Confirm Interp Positive H Factor V Activity POC ABG pH POC ABG pCO2 POC ABG pO2 Sodium Potassium Chloride Carbon Dioxide BUN Creatinine Glucose POC Glucose 224 H Lactic Acid Calcium Phosphorus Magnesium Direct Bilirubin ALT Alkaline Phosphatase Troponin T C-Reactive Protein 1.70 H Total Protein Albumin Triglycerides Cholesterol LDL Cholesterol Direct HDL Cholesterol Urine WBC (Auto) Urine Creatinine Urine Total Protein Vancomycin Trough Rheumatoid Factor Complement C4 Crossmatch 09/12/16 09/12/16 09/13/16 16:51 23:28 04:00 WBC 45.0 H* RBC Hgb 9.4 L Hct MCV 75 L MCH 23 L MCHC RDW 19.0 H Plt Count 470 H Lymph % (Auto) [place] % (Auto) Lymph # [place] # Seg Neutrophils % Seg Neuts % (Manual) 89.0 H Lymphocytes % (Manual) 5.0 L Monocytes % (Manual) Eosinophils % (Manual) Basophils % (Manual) Nucleated RBC % Seg Neutrophils # Seg Neutrophils # Man 40.1 H Lymphocytes # (Manual) Monocytes # (Manual) Eosinophils # (Manual) PT INR Fibrinogen dRVVT Confirm Interp Factor V Activity POC ABG pH POC ABG pCO2 POC ABG pO2 Sodium Potassium Chloride Carbon Dioxide BUN Creatinine Glucose POC Glucose 169 H 150 H Lactic Acid Calcium Phosphorus Magnesium Direct Bilirubin ALT Alkaline Phosphatase Troponin T C-Reactive Protein Total Protein Albumin Triglycerides Cholesterol LDL Cholesterol Direct HDL Cholesterol Urine WBC (Auto) Urine Creatinine Urine Total Protein Vancomycin Trough Rheumatoid Factor Complement C4 Crossmatch 09/13/16 09/13/16 09/13/16 04:00 11:26 17:31 WBC RBC Hgb Hct MCV MCH MCHC RDW Plt Count Lymph % (Auto) [place] % (Auto) Lymph # [place] # Seg Neutrophils % Seg Neuts % (Manual) Lymphocytes % (Manual) Monocytes % (Manual) Eosinophils % (Manual) Basophils % (Manual) Nucleated RBC % Seg Neutrophils # Seg Neutrophils # Man Lymphocytes # (Manual) Monocytes # (Manual) Eosinophils # (Manual) PT INR Fibrinogen dRVVT Confirm Interp Factor V Activity POC ABG pH POC ABG pCO2 POC ABG pO2 Sodium Potassium Chloride Carbon Dioxide 20 L BUN 116 H Creatinine 3.0 H Glucose 172 H POC Glucose 140 H 183 H Lactic Acid Calcium Phosphorus Magnesium Direct Bilirubin ALT Alkaline Phosphatase Troponin T C-Reactive Protein Total Protein 6.2 L Albumin 2.9 L Triglycerides Cholesterol LDL Cholesterol Direct HDL Cholesterol Urine WBC (Auto) Urine Creatinine Urine Total Protein Vancomycin Trough Rheumatoid Factor Complement C4 Crossmatch 09/13/16 09/14/16 09/14/16 23:23 04:06 04:07 WBC 29.4 H RBC Hgb 8.9 L Hct 27.3 L MCV 75 L MCH 24 L MCHC RDW 19.1 H Plt Count Lymph % (Auto) [place] % (Auto) Lymph # [place] # Seg Neutrophils % Seg Neuts % (Manual) 84.0 H Lymphocytes % (Manual) 6.0 L Monocytes % (Manual) 9.0 H Eosinophils % (Manual) Basophils % (Manual) Nucleated RBC % Seg Neutrophils # Seg Neutrophils # Man 24.7 H Lymphocytes # (Manual) Monocytes # (Manual) 2.6 H Eosinophils # (Manual) PT INR Fibrinogen dRVVT Confirm Interp Factor V Activity POC ABG pH 7.342 L POC ABG pCO2 POC ABG pO2 116 H Sodium Potassium Chloride Carbon Dioxide BUN Creatinine Glucose POC Glucose 154 H Lactic Acid Calcium Phosphorus Magnesium Direct Bilirubin ALT Alkaline Phosphatase Troponin T C-Reactive Protein Total Protein Albumin Triglycerides Cholesterol LDL Cholesterol Direct HDL Cholesterol Urine WBC (Auto) Urine Creatinine Urine Total Protein Vancomycin Trough Rheumatoid Factor Complement C4 Crossmatch 09/14/16 09/14/16 09/14/16 04:07 05:29 12:19 WBC RBC Hgb Hct MCV MCH MCHC RDW Plt Count Lymph % (Auto) [place] % (Auto) Lymph # [place] # Seg Neutrophils % Seg Neuts % (Manual) Lymphocytes % (Manual) Monocytes % (Manual) Eosinophils % (Manual) Basophils % (Manual) Nucleated RBC % Seg Neutrophils # Seg Neutrophils # Man Lymphocytes # (Manual) Monocytes # (Manual) Eosinophils # (Manual) PT INR Fibrinogen dRVVT Confirm Interp Factor V Activity POC ABG pH POC ABG pCO2 POC ABG pO2 Sodium 136 L Potassium Chloride Carbon Dioxide 18 L BUN 121 H Creatinine 2.8 H Glucose 214 H POC Glucose 239 H 181 H Lactic Acid Calcium Phosphorus Magnesium Direct Bilirubin ALT Alkaline Phosphatase Troponin T C-Reactive Protein Total Protein Albumin Triglycerides Cholesterol LDL Cholesterol Direct HDL Cholesterol Urine WBC (Auto) Urine Creatinine Urine Total Protein Vancomycin Trough Rheumatoid Factor Complement C4 Crossmatch 09/14/16 09/14/16 09/15/16 18:12 23:37 05:00 WBC 26.1 H RBC 3.05 L Hgb 7.2 L Hct 22.9 L MCV 75 L MCH 24 L MCHC RDW 19.0 H Plt Count Lymph % (Auto) [place] % (Auto) Lymph # [place] # Seg Neutrophils % Seg Neuts % (Manual) Lymphocytes % (Manual) Monocytes % (Manual) Eosinophils % (Manual) Basophils % (Manual) Nucleated RBC % Seg Neutrophils # Seg Neutrophils # Man Lymphocytes # (Manual) Monocytes # (Manual) Eosinophils # (Manual) PT INR Fibrinogen dRVVT Confirm Interp Factor V Activity POC ABG pH POC ABG pCO2 POC ABG pO2 Sodium Potassium Chloride Carbon Dioxide BUN Creatinine Glucose POC Glucose 266 H 154 H Lactic Acid Calcium Phosphorus Magnesium Direct Bilirubin ALT Alkaline Phosphatase Troponin T C-Reactive Protein Total Protein Albumin Triglycerides Cholesterol LDL Cholesterol Direct HDL Cholesterol Urine WBC (Auto) Urine Creatinine Urine Total Protein Vancomycin Trough Rheumatoid Factor Complement C4 Crossmatch 09/15/16 09/15/16 09/15/16 05:00 05:17 12:45 WBC RBC Hgb Hct MCV MCH MCHC RDW Plt Count Lymph % (Auto) [place] % (Auto) Lymph # [place] # Seg Neutrophils % Seg Neuts % (Manual) Lymphocytes % (Manual) Monocytes % (Manual) Eosinophils % (Manual) Basophils % (Manual) Nucleated RBC % Seg Neutrophils # Seg Neutrophils # Man Lymphocytes # (Manual) Monocytes # (Manual) Eosinophils # (Manual) PT INR Fibrinogen dRVVT Confirm Interp Factor V Activity POC ABG pH POC ABG pCO2 POC ABG pO2 Sodium Potassium 5.2 H Chloride Carbon Dioxide 18 L BUN 139 H Creatinine 3.7 H Glucose 227 H POC Glucose 226 H 244 H Lactic Acid Calcium 8.3 L Phosphorus Magnesium Direct Bilirubin ALT Alkaline Phosphatase Troponin T C-Reactive Protein Total Protein Albumin Triglycerides Cholesterol LDL Cholesterol Direct HDL Cholesterol Urine WBC (Auto) Urine Creatinine Urine Total Protein Vancomycin Trough Rheumatoid Factor Complement C4 Crossmatch 09/15/16 09/15/16 09/15/16 14:32 17:33 23:35 WBC RBC Hgb Hct MCV MCH MCHC RDW Plt Count Lymph % (Auto) [place] % (Auto) Lymph # [place] # Seg Neutrophils % Seg Neuts % (Manual) Lymphocytes % (Manual) Monocytes % (Manual) Eosinophils % (Manual) Basophils % (Manual) Nucleated RBC % Seg Neutrophils # Seg Neutrophils # Man Lymphocytes # (Manual) Monocytes # (Manual) Eosinophils # (Manual) PT INR Fibrinogen dRVVT Confirm Interp Factor V Activity POC ABG pH POC ABG pCO2 27.7 L POC ABG pO2 120 H Sodium Potassium Chloride Carbon Dioxide BUN Creatinine Glucose POC Glucose 232 H 167 H Lactic Acid Calcium Phosphorus Magnesium Direct Bilirubin ALT Alkaline Phosphatase Troponin T C-Reactive Protein Total Protein Albumin Triglycerides Cholesterol LDL Cholesterol Direct HDL Cholesterol Urine WBC (Auto) Urine Creatinine Urine Total Protein Vancomycin Trough Rheumatoid Factor Complement C4 Crossmatch 09/16/16 09/16/16 09/16/16 03:58 10:27 10:27 WBC 19.0 H RBC 2.77 L Hgb 6.5 L Hct 20.9 L MCV 76 L MCH 23 L MCHC RDW 19.3 H Plt Count Lymph % (Auto) 11.0 L [place] % (Auto) Lymph # [place] # 1.1 H Seg Neutrophils % 82.5 H Seg Neuts % (Manual) Lymphocytes % (Manual) Monocytes % (Manual) Eosinophils % (Manual) Basophils % (Manual) Nucleated RBC % Seg Neutrophils # 15.7 H Seg Neutrophils # Man Lymphocytes # (Manual) Monocytes # (Manual) Eosinophils # (Manual) PT INR Fibrinogen dRVVT Confirm Interp Factor V Activity POC ABG pH POC ABG pCO2 POC ABG pO2 Sodium Potassium Chloride 109.3 H Carbon Dioxide 18 L BUN 139 H Creatinine 4.1 H Glucose 144 H POC Glucose 146 H Lactic Acid Calcium 8.1 L Phosphorus Magnesium Direct Bilirubin ALT Alkaline Phosphatase Troponin T C-Reactive Protein Total Protein Albumin Triglycerides Cholesterol LDL Cholesterol Direct HDL Cholesterol Urine WBC (Auto) Urine Creatinine Urine Total Protein Vancomycin Trough Rheumatoid Factor Complement C4 Crossmatch 09/16/16 09/16/16 09/16/16 12:04 12:10 13:55 WBC RBC Hgb Hct MCV MCH MCHC RDW Plt Count Lymph % (Auto) [place] % (Auto) Lymph # [place] # Seg Neutrophils % Seg Neuts % (Manual) Lymphocytes % (Manual) Monocytes % (Manual) Eosinophils % (Manual) Basophils % (Manual) Nucleated RBC % Seg Neutrophils # Seg Neutrophils # Man Lymphocytes # (Manual) Monocytes # (Manual) Eosinophils # (Manual) PT INR Fibrinogen dRVVT Confirm Interp Factor V Activity POC ABG pH POC ABG pCO2 32.9 L POC ABG pO2 Sodium Potassium Chloride Carbon Dioxide BUN Creatinine Glucose POC Glucose 185 H Lactic Acid Calcium Phosphorus Magnesium Direct Bilirubin ALT Alkaline Phosphatase Troponin T C-Reactive Protein Total Protein Albumin Triglycerides Cholesterol LDL Cholesterol Direct HDL Cholesterol Urine WBC (Auto) Urine Creatinine Urine Total Protein Vancomycin Trough Rheumatoid Factor Complement C4 Crossmatch See Detail 09/16/16 09/16/16 09/16/16 17:55 19:19 23:48 WBC RBC Hgb Hct MCV MCH MCHC RDW Plt Count Lymph % (Auto) [place] % (Auto) Lymph # [place] # Seg Neutrophils % Seg Neuts % (Manual) Lymphocytes % (Manual) Monocytes % (Manual) Eosinophils % (Manual) Basophils % (Manual) Nucleated RBC % Seg Neutrophils # Seg Neutrophils # Man Lymphocytes # (Manual) Monocytes # (Manual) Eosinophils # (Manual) PT INR Fibrinogen dRVVT Confirm Interp Factor V Activity POC ABG pH POC ABG pCO2 POC ABG pO2 Sodium Potassium Chloride Carbon Dioxide BUN Creatinine Glucose POC Glucose 222 H 107 H Lactic Acid Calcium Phosphorus Magnesium Direct Bilirubin ALT Alkaline Phosphatase Troponin T C-Reactive Protein Total Protein Albumin Triglycerides Cholesterol LDL Cholesterol Direct HDL Cholesterol Urine WBC (Auto) Urine Creatinine 47.4 H Urine Total Protein 16 H Vancomycin Trough Rheumatoid Factor Complement C4 Crossmatch 09/17/16 09/17/16 09/17/16 03:45 03:45 04:55 WBC 19.6 H RBC 3.41 L Hgb 8.5 L Hct 26.7 L MCV 78 L MCH 25 L MCHC RDW 19.9 H Plt Count Lymph % (Auto) 9.3 L [place] % (Auto) Lymph # [place] # 1.2 H Seg Neutrophils % 83.9 H Seg Neuts % (Manual) Lymphocytes % (Manual) Monocytes % (Manual) Eosinophils % (Manual) Basophils % (Manual) Nucleated RBC % Seg Neutrophils # 16.4 H Seg Neutrophils # Man Lymphocytes # (Manual) Monocytes # (Manual) Eosinophils # (Manual) PT INR Fibrinogen dRVVT Confirm Interp Factor V Activity POC ABG pH POC ABG pCO2 POC ABG pO2 Sodium 146 H Potassium 5.1 H Chloride 110.9 H Carbon Dioxide 16 L BUN 146 H Creatinine 4.0 H Glucose 108 H POC Glucose 133 H Lactic Acid Calcium Phosphorus Magnesium 3.00 H Direct Bilirubin ALT Alkaline Phosphatase Troponin T C-Reactive Protein Total Protein Albumin Triglycerides Cholesterol LDL Cholesterol Direct HDL Cholesterol Urine WBC (Auto) Urine Creatinine Urine Total Protein Vancomycin Trough Rheumatoid Factor Complement C4 Crossmatch 09/17/16 09/17/16 09/17/16 11:15 17:33 23:47 WBC RBC Hgb Hct MCV MCH MCHC RDW Plt Count Lymph % (Auto) [place] % (Auto) Lymph # [place] # Seg Neutrophils % Seg Neuts % (Manual) Lymphocytes % (Manual) Monocytes % (Manual) Eosinophils % (Manual) Basophils % (Manual) Nucleated RBC % Seg Neutrophils # Seg Neutrophils # Man Lymphocytes # (Manual) Monocytes # (Manual) Eosinophils # (Manual) PT INR Fibrinogen dRVVT Confirm Interp Factor V Activity POC ABG pH POC ABG pCO2 POC ABG pO2 Sodium Potassium Chloride Carbon Dioxide BUN Creatinine Glucose POC Glucose 176 H 246 H 148 H Lactic Acid Calcium Phosphorus Magnesium Direct Bilirubin ALT Alkaline Phosphatase Troponin T C-Reactive Protein Total Protein Albumin Triglycerides Cholesterol LDL Cholesterol Direct HDL Cholesterol Urine WBC (Auto) Urine Creatinine Urine Total Protein Vancomycin Trough Rheumatoid Factor Complement C4 Crossmatch 09/18/16 09/18/16 09/18/16 05:33 08:31 08:31 WBC 18.0 H RBC 3.17 L Hgb 9.0 L Hct 25.7 L MCV MCH MCHC 35 H RDW 20.4 H Plt Count Lymph % (Auto) [place] % (Auto) Lymph # [place] # Seg Neutrophils % Seg Neuts % (Manual) Lymphocytes % (Manual) Monocytes % (Manual) Eosinophils % (Manual) Basophils % (Manual) Nucleated RBC % Seg Neutrophils # Seg Neutrophils # Man Lymphocytes # (Manual) Monocytes # (Manual) Eosinophils # (Manual) PT INR Fibrinogen dRVVT Confirm Interp Factor V Activity POC ABG pH POC ABG pCO2 POC ABG pO2 Sodium Potassium Chloride Carbon Dioxide 15 L BUN 124 H Creatinine 3.8 H Glucose POC Glucose 120 H Lactic Acid Calcium 8.1 L Phosphorus Magnesium Direct Bilirubin ALT Alkaline Phosphatase Troponin T C-Reactive Protein Total Protein Albumin Triglycerides Cholesterol LDL Cholesterol Direct HDL Cholesterol Urine WBC (Auto) Urine Creatinine Urine Total Protein Vancomycin Trough Rheumatoid Factor Complement C4 Crossmatch 09/18/16 09/18/16 09/18/16 12:03 15:34 17:50 WBC RBC Hgb Hct MCV MCH MCHC RDW Plt Count Lymph % (Auto) [place] % (Auto) Lymph # [place] # Seg Neutrophils % Seg Neuts % (Manual) Lymphocytes % (Manual) Monocytes % (Manual) Eosinophils % (Manual) Basophils % (Manual) Nucleated RBC % Seg Neutrophils # Seg Neutrophils # Man Lymphocytes # (Manual) Monocytes # (Manual) Eosinophils # (Manual) PT INR Fibrinogen dRVVT Confirm Interp Factor V Activity POC ABG pH POC ABG pCO2 25.7 L POC ABG pO2 66 L Sodium Potassium Chloride Carbon Dioxide BUN Creatinine Glucose POC Glucose 156 H 220 H Lactic Acid Calcium Phosphorus Magnesium Direct Bilirubin ALT Alkaline Phosphatase Troponin T C-Reactive Protein Total Protein Albumin Triglycerides Cholesterol LDL Cholesterol Direct HDL Cholesterol Urine WBC (Auto) Urine Creatinine Urine Total Protein Vancomycin Trough Rheumatoid Factor Complement C4 Crossmatch 09/19/16 09/19/16 09/19/16 06:21 09:50 09:50 WBC 17.1 H RBC 3.49 L Hgb 9.0 L Hct 28.1 L MCV MCH 26 L MCHC RDW 20.8 H Plt Count Lymph % (Auto) 11.5 L [place] % (Auto) 7.5 H Lymph # [place] # 1.3 H Seg Neutrophils % 79.8 H Seg Neuts % (Manual) Lymphocytes % (Manual) Monocytes % (Manual) Eosinophils % (Manual) Basophils % (Manual) Nucleated RBC % Seg Neutrophils # 13.7 H Seg Neutrophils # Man Lymphocytes # (Manual) Monocytes # (Manual) Eosinophils # (Manual) PT INR Fibrinogen dRVVT Confirm Interp Factor V Activity POC ABG pH POC ABG pCO2 POC ABG pO2 Sodium Potassium Chloride 108.6 H Carbon Dioxide 15 L BUN 125 H Creatinine 4.1 H Glucose 124 H POC Glucose 119 H Lactic Acid Calcium Phosphorus Magnesium Direct Bilirubin ALT Alkaline Phosphatase Troponin T C-Reactive Protein Total Protein Albumin Triglycerides Cholesterol LDL Cholesterol Direct HDL Cholesterol Urine WBC (Auto) Urine Creatinine Urine Total Protein Vancomycin Trough Rheumatoid Factor Complement C4 Crossmatch 09/19/16 09/19/16 09/19/16 11:25 17:53 23:36 WBC RBC Hgb Hct MCV MCH MCHC RDW Plt Count Lymph % (Auto) [place] % (Auto) Lymph # [place] # Seg Neutrophils % Seg Neuts % (Manual) Lymphocytes % (Manual) Monocytes % (Manual) Eosinophils % (Manual) Basophils % (Manual) Nucleated RBC % Seg Neutrophils # Seg Neutrophils # Man Lymphocytes # (Manual) Monocytes # (Manual) Eosinophils # (Manual) PT INR Fibrinogen dRVVT Confirm Interp Factor V Activity POC ABG pH POC ABG pCO2 POC ABG pO2 Sodium Potassium Chloride Carbon Dioxide BUN Creatinine Glucose POC Glucose 160 H 245 H 121 H Lactic Acid Calcium Phosphorus Magnesium Direct Bilirubin ALT Alkaline Phosphatase Troponin T C-Reactive Protein Total Protein Albumin Triglycerides Cholesterol LDL Cholesterol Direct HDL Cholesterol Urine WBC (Auto) Urine Creatinine Urine Total Protein Vancomycin Trough Rheumatoid Factor Complement C4 Crossmatch 09/20/16 09/20/16 09/20/16 04:10 04:10 04:10 WBC 17.0 H RBC 3.21 L Hgb 8.2 L Hct 25.5 L MCV MCH 26 L MCHC RDW 20.9 H Plt Count Lymph % (Auto) [place] % (Auto) Lymph # [place] # Seg Neutrophils % Seg Neuts % (Manual) Lymphocytes % (Manual) Monocytes % (Manual) Eosinophils % (Manual) Basophils % (Manual) Nucleated RBC % Seg Neutrophils # Seg Neutrophils # Man Lymphocytes # (Manual) Monocytes # (Manual) Eosinophils # (Manual) PT INR Fibrinogen dRVVT Confirm Interp Factor V Activity POC ABG pH POC ABG pCO2 POC ABG pO2 Sodium Potassium Chloride 111.0 H Carbon Dioxide 16 L BUN 129 H Creatinine 3.7 H Glucose 115 H POC Glucose Lactic Acid Calcium 8.2 L Phosphorus Magnesium Direct Bilirubin ALT Alkaline Phosphatase Troponin T C-Reactive Protein Total Protein Albumin Triglycerides 243 H Cholesterol LDL Cholesterol Direct HDL Cholesterol Urine WBC (Auto) Urine Creatinine Urine Total Protein Vancomycin Trough Rheumatoid Factor Complement C4 Crossmatch 09/20/16 09/20/16 09/20/16 05:40 11:52 16:50 WBC RBC Hgb Hct MCV MCH MCHC RDW Plt Count Lymph % (Auto) [place] % (Auto) Lymph # [place] # Seg Neutrophils % Seg Neuts % (Manual) Lymphocytes % (Manual) Monocytes % (Manual) Eosinophils % (Manual) Basophils % (Manual) Nucleated RBC % Seg Neutrophils # Seg Neutrophils # Man Lymphocytes # (Manual) Monocytes # (Manual) Eosinophils # (Manual) PT INR Fibrinogen dRVVT Confirm Interp Factor V Activity POC ABG pH POC ABG pCO2 POC ABG pO2 Sodium Potassium Chloride Carbon Dioxide BUN Creatinine Glucose POC Glucose 131 H 183 H 236 H Lactic Acid Calcium Phosphorus Magnesium Direct Bilirubin ALT Alkaline Phosphatase Troponin T C-Reactive Protein Total Protein Albumin Triglycerides Cholesterol LDL Cholesterol Direct HDL Cholesterol Urine WBC (Auto) Urine Creatinine Urine Total Protein Vancomycin Trough Rheumatoid Factor Complement C4 Crossmatch 09/20/16 09/21/16 09/21/16 23:51 03:30 04:44 WBC RBC Hgb Hct MCV MCH MCHC RDW Plt Count Lymph % (Auto) [place] % (Auto) Lymph # [place] # Seg Neutrophils % Seg Neuts % (Manual) Lymphocytes % (Manual) Monocytes % (Manual) Eosinophils % (Manual) Basophils % (Manual) Nucleated RBC % Seg Neutrophils # Seg Neutrophils # Man Lymphocytes # (Manual) Monocytes # (Manual) Eosinophils # (Manual) PT INR Fibrinogen dRVVT Confirm Interp Factor V Activity POC ABG pH POC ABG pCO2 POC ABG pO2 Sodium Potassium Chloride Carbon Dioxide BUN Creatinine Glucose POC Glucose 114 H 141 H Lactic Acid Calcium Phosphorus Magnesium 2.70 H Direct Bilirubin ALT Alkaline Phosphatase Troponin T C-Reactive Protein Total Protein Albumin Triglycerides Cholesterol LDL Cholesterol Direct HDL Cholesterol Urine WBC (Auto) Urine Creatinine Urine Total Protein Vancomycin Trough Rheumatoid Factor Complement C4 Crossmatch 09/21/16 09/21/16 09/21/16 07:45 07:45 10:01 WBC 13.8 H RBC 2.94 L Hgb 7.5 L Hct 23.5 L MCV MCH 26 L MCHC RDW 21.2 H Plt Count Lymph % (Auto) 6.9 L [place] % (Auto) 9.4 H Lymph # 0.9 L [place] # 1.3 H Seg Neutrophils % 83.2 H Seg Neuts % (Manual) Lymphocytes % (Manual) Monocytes % (Manual) Eosinophils % (Manual) Basophils % (Manual) Nucleated RBC % Seg Neutrophils # 11.5 H Seg Neutrophils # Man Lymphocytes # (Manual) Monocytes # (Manual) Eosinophils # (Manual) PT INR Fibrinogen dRVVT Confirm Interp Factor V Activity POC ABG pH 7.308 L POC ABG pCO2 31.9 L POC ABG pO2 148 H Sodium 147 H Potassium Chloride 114.2 H Carbon Dioxide 15 L BUN 120 H Creatinine 3.9 H Glucose 156 H POC Glucose Lactic Acid Calcium 8.2 L Phosphorus Magnesium Direct Bilirubin ALT Alkaline Phosphatase Troponin T C-Reactive Protein Total Protein Albumin Triglycerides Cholesterol LDL Cholesterol Direct HDL Cholesterol Urine WBC (Auto) Urine Creatinine Urine Total Protein Vancomycin Trough Rheumatoid Factor Complement C4 Crossmatch 09/21/16 09/21/16 09/21/16 12:00 12:03 13:00 WBC RBC Hgb Hct MCV MCH MCHC RDW Plt Count Lymph % (Auto) [place] % (Auto) Lymph # [place] # Seg Neutrophils % Seg Neuts % (Manual) Lymphocytes % (Manual) Monocytes % (Manual) Eosinophils % (Manual) Basophils % (Manual) Nucleated RBC % Seg Neutrophils # Seg Neutrophils # Man Lymphocytes # (Manual) Monocytes # (Manual) Eosinophils # (Manual) PT INR Fibrinogen dRVVT Confirm Interp Factor V Activity POC ABG pH POC ABG pCO2 POC ABG pO2 Sodium Potassium Chloride Carbon Dioxide BUN Creatinine Glucose POC Glucose 163 H Lactic Acid Calcium Phosphorus Magnesium Direct Bilirubin ALT Alkaline Phosphatase Troponin T C-Reactive Protein Total Protein Albumin Triglycerides Cholesterol LDL Cholesterol Direct HDL Cholesterol Urine WBC (Auto) Urine Creatinine 54.8 H Urine Total Protein Vancomycin Trough 2.3 L Rheumatoid Factor Complement C4 Crossmatch 09/21/16 09/21/16 09/22/16 16:51 23:17 06:27 WBC RBC Hgb Hct MCV MCH MCHC RDW Plt Count Lymph % (Auto) [place] % (Auto) Lymph # [place] # Seg Neutrophils % Seg Neuts % (Manual) Lymphocytes % (Manual) Monocytes % (Manual) Eosinophils % (Manual) Basophils % (Manual) Nucleated RBC % Seg Neutrophils # Seg Neutrophils # Man Lymphocytes # (Manual) Monocytes # (Manual) Eosinophils # (Manual) PT INR Fibrinogen dRVVT Confirm Interp Factor V Activity POC ABG pH POC ABG pCO2 POC ABG pO2 Sodium Potassium Chloride Carbon Dioxide BUN Creatinine Glucose POC Glucose 206 H 114 H 115 H Lactic Acid Calcium Phosphorus Magnesium Direct Bilirubin ALT Alkaline Phosphatase Troponin T C-Reactive Protein Total Protein Albumin Triglycerides Cholesterol LDL Cholesterol Direct HDL Cholesterol Urine WBC (Auto) Urine Creatinine Urine Total Protein Vancomycin Trough Rheumatoid Factor Complement C4 Crossmatch 09/22/16 09/22/16 09/22/16 07:50 07:50 12:00 WBC 17.8 H RBC 3.04 L Hgb 8.0 L Hct 24.7 L MCV MCH 26 L MCHC RDW 21.6 H Plt Count Lymph % (Auto) [place] % (Auto) Lymph # [place] # Seg Neutrophils % Seg Neuts % (Manual) Lymphocytes % (Manual) Monocytes % (Manual) Eosinophils % (Manual) Basophils % (Manual) Nucleated RBC % Seg Neutrophils # Seg Neutrophils # Man Lymphocytes # (Manual) Monocytes # (Manual) Eosinophils # (Manual) PT INR Fibrinogen dRVVT Confirm Interp Factor V Activity POC ABG pH POC ABG pCO2 POC ABG pO2 Sodium 150 H Potassium Chloride 118.2 H Carbon Dioxide 14 L BUN 111 H Creatinine 3.7 H Glucose 157 H POC Glucose 183 H Lactic Acid Calcium Phosphorus Magnesium Direct Bilirubin ALT Alkaline Phosphatase Troponin T C-Reactive Protein Total Protein Albumin Triglycerides Cholesterol LDL Cholesterol Direct HDL Cholesterol Urine WBC (Auto) Urine Creatinine Urine Total Protein Vancomycin Trough Rheumatoid Factor Complement C4 Crossmatch 09/22/16 09/22/16 09/23/16 17:29 23:10 05:00 WBC 19.2 H RBC 3.13 L Hgb 8.0 L Hct 25.2 L MCV MCH 26 L MCHC RDW 22.1 H Plt Count Lymph % (Auto) [place] % (Auto) Lymph # [place] # Seg Neutrophils % Seg Neuts % (Manual) 92.0 H Lymphocytes % (Manual) 3.0 L Monocytes % (Manual) Eosinophils % (Manual) Basophils % (Manual) Nucleated RBC % Seg Neutrophils # Seg Neutrophils # Man 17.7 H Lymphocytes # (Manual) 0.6 L Monocytes # (Manual) Eosinophils # (Manual) PT INR Fibrinogen dRVVT Confirm Interp Factor V Activity POC ABG pH POC ABG pCO2 POC ABG pO2 Sodium Potassium Chloride Carbon Dioxide BUN Creatinine Glucose POC Glucose 197 H 169 H Lactic Acid Calcium Phosphorus Magnesium Direct Bilirubin ALT Alkaline Phosphatase Troponin T C-Reactive Protein Total Protein Albumin Triglycerides Cholesterol LDL Cholesterol Direct HDL Cholesterol Urine WBC (Auto) Urine Creatinine Urine Total Protein Vancomycin Trough Rheumatoid Factor Complement C4 Crossmatch 09/23/16 09/23/16 09/23/16 05:00 05:00 05:10 WBC RBC Hgb Hct MCV MCH MCHC RDW Plt Count Lymph % (Auto) [place] % (Auto) Lymph # [place] # Seg Neutrophils % Seg Neuts % (Manual) Lymphocytes % (Manual) Monocytes % (Manual) Eosinophils % (Manual) Basophils % (Manual) Nucleated RBC % Seg Neutrophils # Seg Neutrophils # Man Lymphocytes # (Manual) Monocytes # (Manual) Eosinophils # (Manual) PT INR Fibrinogen dRVVT Confirm Interp Factor V Activity POC ABG pH POC ABG pCO2 POC ABG pO2 Sodium 147 H Potassium 3.2 L Chloride 115.7 H Carbon Dioxide 13 L BUN 111 H Creatinine 3.8 H Glucose 194 H POC Glucose 188 H Lactic Acid Calcium 7.3 L D Phosphorus Magnesium Direct Bilirubin ALT Alkaline Phosphatase Troponin T C-Reactive Protein 3.20 H Total Protein Albumin Triglycerides Cholesterol LDL Cholesterol Direct HDL Cholesterol Urine WBC (Auto) Urine Creatinine Urine Total Protein Vancomycin Trough Rheumatoid Factor Complement C4 Crossmatch 09/23/16 09/23/16 09/23/16 11:37 12:29 18:01 WBC RBC Hgb Hct MCV MCH MCHC RDW Plt Count Lymph % (Auto) [place] % (Auto) Lymph # [place] # Seg Neutrophils % Seg Neuts % (Manual) Lymphocytes % (Manual) Monocytes % (Manual) Eosinophils % (Manual) Basophils % (Manual) Nucleated RBC % Seg Neutrophils # Seg Neutrophils # Man Lymphocytes # (Manual) Monocytes # (Manual) Eosinophils # (Manual) PT INR Fibrinogen dRVVT Confirm Interp Factor V Activity POC ABG pH POC ABG pCO2 18.9 L POC ABG pO2 143 H Sodium Potassium Chloride Carbon Dioxide BUN Creatinine Glucose POC Glucose 153 H 108 H Lactic Acid Calcium Phosphorus Magnesium Direct Bilirubin ALT Alkaline Phosphatase Troponin T C-Reactive Protein Total Protein Albumin Triglycerides Cholesterol LDL Cholesterol Direct HDL Cholesterol Urine WBC (Auto) Urine Creatinine Urine Total Protein Vancomycin Trough Rheumatoid Factor Complement C4 Crossmatch 09/23/16 09/23/16 09/24/16 21:19 23:43 05:16 WBC RBC Hgb Hct MCV MCH MCHC RDW Plt Count Lymph % (Auto) [place] % (Auto) Lymph # [place] # Seg Neutrophils % Seg Neuts % (Manual) Lymphocytes % (Manual) Monocytes % (Manual) Eosinophils % (Manual) Basophils % (Manual) Nucleated RBC % Seg Neutrophils # Seg Neutrophils # Man Lymphocytes # (Manual) Monocytes # (Manual) Eosinophils # (Manual) PT INR Fibrinogen dRVVT Confirm Interp Factor V Activity POC ABG pH POC ABG pCO2 17.3 L POC ABG pO2 112 H Sodium Potassium Chloride Carbon Dioxide BUN Creatinine Glucose POC Glucose 143 H 164 H Lactic Acid Calcium Phosphorus Magnesium Direct Bilirubin ALT Alkaline Phosphatase Troponin T C-Reactive Protein Total Protein Albumin Triglycerides Cholesterol LDL Cholesterol Direct HDL Cholesterol Urine WBC (Auto) Urine Creatinine Urine Total Protein Vancomycin Trough Rheumatoid Factor Complement C4 Crossmatch 09/24/16 09/24/16 09/24/16 05:21 11:58 17:06 WBC RBC Hgb Hct MCV MCH MCHC RDW Plt Count Lymph % (Auto) [place] % (Auto) Lymph # [place] # Seg Neutrophils % Seg Neuts % (Manual) Lymphocytes % (Manual) Monocytes % (Manual) Eosinophils % (Manual) Basophils % (Manual) Nucleated RBC % Seg Neutrophils # Seg Neutrophils # Man Lymphocytes # (Manual) Monocytes # (Manual) Eosinophils # (Manual) PT INR Fibrinogen dRVVT Confirm Interp Factor V Activity POC ABG pH POC ABG pCO2 POC ABG pO2 Sodium Potassium Chloride Carbon Dioxide 10 L BUN 103 H Creatinine 4.3 H Glucose 163 H POC Glucose 173 H 167 H Lactic Acid Calcium 6.5 L Phosphorus Magnesium Direct Bilirubin ALT Alkaline Phosphatase Troponin T C-Reactive Protein Total Protein Albumin Triglycerides Cholesterol LDL Cholesterol Direct HDL Cholesterol Urine WBC (Auto) Urine Creatinine Urine Total Protein Vancomycin Trough Rheumatoid Factor Complement C4 Crossmatch 09/24/16 09/24/16 09/24/16 20:15 21:02 23:48 WBC RBC Hgb Hct MCV MCH MCHC RDW Plt Count Lymph % (Auto) [place] % (Auto) Lymph # [place] # Seg Neutrophils % Seg Neuts % (Manual) Lymphocytes % (Manual) Monocytes % (Manual) Eosinophils % (Manual) Basophils % (Manual) Nucleated RBC % Seg Neutrophils # Seg Neutrophils # Man Lymphocytes # (Manual) Monocytes # (Manual) Eosinophils # (Manual) PT INR Fibrinogen dRVVT Confirm Interp Factor V Activity POC ABG pH 7.288 L POC ABG pCO2 30.2 L 21.5 L POC ABG pO2 32 L 39 L Sodium Potassium Chloride Carbon Dioxide BUN Creatinine Glucose POC Glucose 109 H Lactic Acid Calcium Phosphorus Magnesium Direct Bilirubin ALT Alkaline Phosphatase Troponin T C-Reactive Protein Total Protein Albumin Triglycerides Cholesterol LDL Cholesterol Direct HDL Cholesterol Urine WBC (Auto) Urine Creatinine Urine Total Protein Vancomycin Trough Rheumatoid Factor Complement C4 Crossmatch 09/25/16 09/25/16 09/25/16 04:20 04:20 04:20 WBC RBC 2.58 L Hgb 7.0 L Hct 21.0 L MCV MCH 27 L MCHC RDW 23.8 H Plt Count Lymph % (Auto) [place] % (Auto) Lymph # [place] # Seg Neutrophils % Seg Neuts % (Manual) Lymphocytes % (Manual) 12.0 L Monocytes % (Manual) Eosinophils % (Manual) 7.0 H Basophils % (Manual) 2.0 H Nucleated RBC % Seg Neutrophils # Seg Neutrophils # Man Lymphocytes # (Manual) 0.9 L Monocytes # (Manual) Eosinophils # (Manual) 0.5 H PT INR Fibrinogen dRVVT Confirm Interp Factor V Activity POC ABG pH POC ABG pCO2 POC ABG pO2 Sodium Potassium Chloride Carbon Dioxide 15 L BUN 72 H Creatinine 3.8 H Glucose POC Glucose Lactic Acid Calcium 6.0 L Phosphorus 4.60 H Magnesium 1.60 L Direct Bilirubin ALT Alkaline Phosphatase Troponin T C-Reactive Protein Total Protein Albumin Triglycerides Cholesterol LDL Cholesterol Direct HDL Cholesterol Urine WBC (Auto) Urine Creatinine Urine Total Protein Vancomycin Trough Rheumatoid Factor Complement C4 Crossmatch 09/25/16 09/25/16 09/25/16 04:57 08:02 10:30 WBC RBC Hgb Hct MCV MCH MCHC RDW Plt Count Lymph % (Auto) [place] % (Auto) Lymph # [place] # Seg Neutrophils % Seg Neuts % (Manual) Lymphocytes % (Manual) Monocytes % (Manual) Eosinophils % (Manual) Basophils % (Manual) Nucleated RBC % Seg Neutrophils # Seg Neutrophils # Man Lymphocytes # (Manual) Monocytes # (Manual) Eosinophils # (Manual) PT INR Fibrinogen dRVVT Confirm Interp Factor V Activity POC ABG pH POC ABG pCO2 24.7 L POC ABG pO2 152 H Sodium Potassium Chloride Carbon Dioxide BUN Creatinine Glucose POC Glucose 113 H Lactic Acid Calcium Phosphorus Magnesium Direct Bilirubin ALT Alkaline Phosphatase Troponin T C-Reactive Protein Total Protein Albumin Triglycerides Cholesterol LDL Cholesterol Direct HDL Cholesterol Urine WBC (Auto) Urine Creatinine Urine Total Protein Vancomycin Trough Rheumatoid Factor Complement C4 Crossmatch See Detail 09/25/16 09/25/16 09/25/16 12:05 17:44 23:47 WBC RBC Hgb Hct MCV MCH MCHC RDW Plt Count Lymph % (Auto) [place] % (Auto) Lymph # [place] # Seg Neutrophils % Seg Neuts % (Manual) Lymphocytes % (Manual) Monocytes % (Manual) Eosinophils % (Manual) Basophils % (Manual) Nucleated RBC % Seg Neutrophils # Seg Neutrophils # Man Lymphocytes # (Manual) Monocytes # (Manual) Eosinophils # (Manual) PT INR Fibrinogen dRVVT Confirm Interp Factor V Activity POC ABG pH POC ABG pCO2 POC ABG pO2 Sodium Potassium Chloride Carbon Dioxide BUN Creatinine Glucose POC Glucose 117 H 119 H 150 H Lactic Acid Calcium Phosphorus Magnesium Direct Bilirubin ALT Alkaline Phosphatase Troponin T C-Reactive Protein Total Protein Albumin Triglycerides Cholesterol LDL Cholesterol Direct HDL Cholesterol Urine WBC (Auto) Urine Creatinine Urine Total Protein Vancomycin Trough Rheumatoid Factor Complement C4 Crossmatch 09/26/16 09/26/16 09/26/16 04:25 04:25 04:25 WBC RBC 2.65 L Hgb 7.4 L Hct 21.6 L MCV MCH MCHC RDW 22.5 H Plt Count Lymph % (Auto) [place] % (Auto) Lymph # [place] # Seg Neutrophils % Seg Neuts % (Manual) Lymphocytes % (Manual) 6.0 L Monocytes % (Manual) Eosinophils % (Manual) 11.0 H Basophils % (Manual) Nucleated RBC % Seg Neutrophils # Seg Neutrophils # Man Lymphocytes # (Manual) 0.4 L Monocytes # (Manual) Eosinophils # (Manual) 0.6 H PT INR Fibrinogen dRVVT Confirm Interp Factor V Activity POC ABG pH POC ABG pCO2 POC ABG pO2 Sodium Potassium Chloride 97.0 L Carbon Dioxide 19 L BUN 43 H Creatinine 2.6 H Glucose 130 H POC Glucose Lactic Acid 4.40 H* Calcium 6.7 L Phosphorus Magnesium Direct Bilirubin ALT Alkaline Phosphatase Troponin T C-Reactive Protein Total Protein Albumin Triglycerides Cholesterol LDL Cholesterol Direct HDL Cholesterol Urine WBC (Auto) Urine Creatinine Urine Total Protein Vancomycin Trough Rheumatoid Factor Complement C4 Crossmatch 09/26/16 09/26/16 09/26/16 05:20 11:44 12:12 WBC RBC Hgb Hct MCV MCH MCHC RDW Plt Count Lymph % (Auto) [place] % (Auto) Lymph # [place] # Seg Neutrophils % Seg Neuts % (Manual) Lymphocytes % (Manual) Monocytes % (Manual) Eosinophils % (Manual) Basophils % (Manual) Nucleated RBC % Seg Neutrophils # Seg Neutrophils # Man Lymphocytes # (Manual) Monocytes # (Manual) Eosinophils # (Manual) PT INR Fibrinogen dRVVT Confirm Interp Factor V Activity POC ABG pH POC ABG pCO2 27.0 L POC ABG pO2 69 L Sodium Potassium Chloride Carbon Dioxide BUN Creatinine Glucose POC Glucose 121 H 128 H Lactic Acid Calcium Phosphorus Magnesium Direct Bilirubin ALT Alkaline Phosphatase Troponin T C-Reactive Protein Total Protein Albumin Triglycerides Cholesterol LDL Cholesterol Direct HDL Cholesterol Urine WBC (Auto) Urine Creatinine Urine Total Protein Vancomycin Trough Rheumatoid Factor Complement C4 Crossmatch 09/26/16 09/26/16 09/27/16 18:31 23:40 08:20 WBC RBC Hgb Hct MCV MCH MCHC RDW Plt Count Lymph % (Auto) [place] % (Auto) Lymph # [place] # Seg Neutrophils % Seg Neuts % (Manual) Lymphocytes % (Manual) Monocytes % (Manual) Eosinophils % (Manual) Basophils % (Manual) Nucleated RBC % Seg Neutrophils # Seg Neutrophils # Man Lymphocytes # (Manual) Monocytes # (Manual) Eosinophils # (Manual) PT INR Fibrinogen dRVVT Confirm Interp Factor V Activity POC ABG pH POC ABG pCO2 POC ABG pO2 Sodium Potassium Chloride Carbon Dioxide BUN Creatinine Glucose POC Glucose 120 H 133 H Lactic Acid 4.10 H* Calcium Phosphorus Magnesium Direct Bilirubin ALT Alkaline Phosphatase Troponin T C-Reactive Protein Total Protein Albumin Triglycerides Cholesterol LDL Cholesterol Direct HDL Cholesterol Urine WBC (Auto) Urine Creatinine Urine Total Protein Vancomycin Trough Rheumatoid Factor Complement C4 Crossmatch 09/27/16 09/27/16 09/27/16 11:23 15:00 18:15 WBC RBC Hgb Hct MCV MCH MCHC RDW Plt Count Lymph % (Auto) [place] % (Auto) Lymph # [place] # Seg Neutrophils % Seg Neuts % (Manual) Lymphocytes % (Manual) Monocytes % (Manual) Eosinophils % (Manual) Basophils % (Manual) Nucleated RBC % Seg Neutrophils # Seg Neutrophils # Man Lymphocytes # (Manual) Monocytes # (Manual) Eosinophils # (Manual) PT INR Fibrinogen dRVVT Confirm Interp Factor V Activity POC ABG pH 7.459 H POC ABG pCO2 27.1 L POC ABG pO2 140 H Sodium Potassium Chloride Carbon Dioxide BUN Creatinine Glucose POC Glucose 114 H 127 H Lactic Acid Calcium Phosphorus Magnesium Direct Bilirubin ALT Alkaline Phosphatase Troponin T C-Reactive Protein Total Protein Albumin Triglycerides Cholesterol LDL Cholesterol Direct HDL Cholesterol Urine WBC (Auto) Urine Creatinine Urine Total Protein Vancomycin Trough Rheumatoid Factor Complement C4 Crossmatch 09/27/16 09/27/16 09/28/16 Unknown Unknown 03:45 WBC RBC 2.49 L Hgb 6.8 L Hct 20.7 L MCV MCH 27 L MCHC RDW 22.1 H Plt Count Lymph % (Auto) [place] % (Auto) Lymph # [place] # Seg Neutrophils % Seg Neuts % (Manual) 32.0 L Lymphocytes % (Manual) 12.0 L Monocytes % (Manual) 11.0 H Eosinophils % (Manual) 10.0 H Basophils % (Manual) Nucleated RBC % Seg Neutrophils # Seg Neutrophils # Man Lymphocytes # (Manual) 1.0 L Monocytes # (Manual) 0.9 H Eosinophils # (Manual) 0.8 H PT INR Fibrinogen dRVVT Confirm Interp Factor V Activity POC ABG pH POC ABG pCO2 POC ABG pO2 Sodium 135 L 135 L Potassium 3.5 L Chloride 93.6 L 94.4 L Carbon Dioxide 17 L 21 L BUN 45 H 28 H Creatinine 3.3 H 2.5 H Glucose 106 H POC Glucose Lactic Acid Calcium 7.3 L 7.1 L Phosphorus Magnesium Direct Bilirubin ALT Alkaline Phosphatase Troponin T C-Reactive Protein Total Protein Albumin Triglycerides Cholesterol LDL Cholesterol Direct HDL Cholesterol Urine WBC (Auto) Urine Creatinine Urine Total Protein Vancomycin Trough Rheumatoid Factor Complement C4 Crossmatch 09/28/16 09/28/16 09/28/16 03:45 07:25 11:58 WBC 13.3 H RBC 3.01 L Hgb 8.4 L Hct 25.0 L MCV MCH MCHC RDW 20.5 H Plt Count 128 L Lymph % (Auto) [place] % (Auto) Lymph # [place] # Seg Neutrophils % Seg Neuts % (Manual) Lymphocytes % (Manual) 7.0 L Monocytes % (Manual) Eosinophils % (Manual) 6.0 H Basophils % (Manual) Nucleated RBC % Seg Neutrophils # Seg Neutrophils # Man Lymphocytes # (Manual) 0.9 L Monocytes # (Manual) Eosinophils # (Manual) 0.8 H PT INR Fibrinogen dRVVT Confirm Interp Factor V Activity POC ABG pH POC ABG pCO2 POC ABG pO2 Sodium Potassium Chloride Carbon Dioxide BUN Creatinine Glucose POC Glucose 121 H Lactic Acid 4.50 H* Calcium Phosphorus Magnesium Direct Bilirubin ALT Alkaline Phosphatase Troponin T C-Reactive Protein Total Protein Albumin Triglycerides Cholesterol LDL Cholesterol Direct HDL Cholesterol Urine WBC (Auto) Urine Creatinine Urine Total Protein Vancomycin Trough Rheumatoid Factor Complement C4 Crossmatch 09/29/16 09/29/16 09/29/16 06:45 06:45 06:45 WBC 14.9 H RBC 2.74 L Hgb 7.6 L Hct 23.2 L MCV MCH MCHC RDW 20.5 H Plt Count 81 L Lymph % (Auto) [place] % (Auto) Lymph # [place] # Seg Neutrophils % Seg Neuts % (Manual) 81.0 H Lymphocytes % (Manual) 4.0 L Monocytes % (Manual) Eosinophils % (Manual) Basophils % (Manual) Nucleated RBC % Seg Neutrophils # Seg Neutrophils # Man 12.1 H Lymphocytes # (Manual) 0.6 L Monocytes # (Manual) Eosinophils # (Manual) PT INR Fibrinogen dRVVT Confirm Interp Factor V Activity POC ABG pH POC ABG pCO2 POC ABG pO2 Sodium 133 L Potassium 3.4 L Chloride 92.5 L Carbon Dioxide 21 L BUN 33 H Creatinine 3.0 H Glucose POC Glucose Lactic Acid Calcium 6.6 L Phosphorus Magnesium 1.40 L Direct Bilirubin 0.9 H ALT Alkaline Phosphatase Troponin T C-Reactive Protein Total Protein 4.3 L Albumin 1.3 L Triglycerides Cholesterol LDL Cholesterol Direct HDL Cholesterol Urine WBC (Auto) Urine Creatinine Urine Total Protein Vancomycin Trough Rheumatoid Factor Complement C4 Crossmatch 09/29/16 09/29/16 09/30/16 17:52 20:12 00:07 WBC RBC Hgb Hct MCV MCH MCHC RDW Plt Count Lymph % (Auto) [place] % (Auto) Lymph # [place] # Seg Neutrophils % Seg Neuts % (Manual) Lymphocytes % (Manual) Monocytes % (Manual) Eosinophils % (Manual) Basophils % (Manual) Nucleated RBC % Seg Neutrophils # Seg Neutrophils # Man Lymphocytes # (Manual) Monocytes # (Manual) Eosinophils # (Manual) PT INR Fibrinogen dRVVT Confirm Interp Factor V Activity POC ABG pH POC ABG pCO2 POC ABG pO2 Sodium Potassium Chloride Carbon Dioxide BUN Creatinine Glucose POC Glucose 50 L 51 L Lactic Acid Calcium Phosphorus Magnesium Direct Bilirubin ALT Alkaline Phosphatase Troponin T 0.204 H* C-Reactive Protein Total Protein Albumin Triglycerides Cholesterol 31 L LDL Cholesterol Direct 4 L HDL Cholesterol 3 L Urine WBC (Auto) Urine Creatinine Urine Total Protein Vancomycin Trough Rheumatoid Factor Complement C4 Crossmatch 09/30/16 09/30/16 09/30/16 01:30 05:15 06:10 WBC RBC Hgb Hct MCV MCH MCHC RDW Plt Count Lymph % (Auto) [place] % (Auto) Lymph # [place] # Seg Neutrophils % Seg Neuts % (Manual) Lymphocytes % (Manual) Monocytes % (Manual) Eosinophils % (Manual) Basophils % (Manual) Nucleated RBC % Seg Neutrophils # Seg Neutrophils # Man Lymphocytes # (Manual) Monocytes # (Manual) Eosinophils # (Manual) PT INR Fibrinogen dRVVT Confirm Interp Factor V Activity POC ABG pH POC ABG pCO2 POC ABG pO2 Sodium 133 L Potassium 3.2 L Chloride 93.2 L Carbon Dioxide 19 L BUN 36 H Creatinine 3.2 H Glucose 104 H POC Glucose 167 H 146 H Lactic Acid Calcium 6.4 L Phosphorus Magnesium 1.60 L Direct Bilirubin ALT Alkaline Phosphatase Troponin T C-Reactive Protein Total Protein Albumin Triglycerides Cholesterol LDL Cholesterol Direct HDL Cholesterol Urine WBC (Auto) Urine Creatinine Urine Total Protein Vancomycin Trough Rheumatoid Factor Complement C4 Crossmatch 09/30/16 09/30/16 09/30/16 11:26 13:39 18:38 WBC RBC Hgb Hct MCV MCH MCHC RDW Plt Count Lymph % (Auto) [place] % (Auto) Lymph # [place] # Seg Neutrophils % Seg Neuts % (Manual) Lymphocytes % (Manual) Monocytes % (Manual) Eosinophils % (Manual) Basophils % (Manual) Nucleated RBC % Seg Neutrophils # Seg Neutrophils # Man Lymphocytes # (Manual) Monocytes # (Manual) Eosinophils # (Manual) PT INR Fibrinogen dRVVT Confirm Interp Factor V Activity POC ABG pH 7.479 H POC ABG pCO2 29.8 L POC ABG pO2 117 H Sodium Potassium Chloride Carbon Dioxide BUN Creatinine Glucose POC Glucose 140 H 122 H Lactic Acid Calcium Phosphorus Magnesium Direct Bilirubin ALT Alkaline Phosphatase Troponin T C-Reactive Protein Total Protein Albumin Triglycerides Cholesterol LDL Cholesterol Direct HDL Cholesterol Urine WBC (Auto) Urine Creatinine Urine Total Protein Vancomycin Trough Rheumatoid Factor Complement C4 Crossmatch 10/01/16 10/01/16 10/01/16 06:00 06:00 12:37 WBC 12.6 H RBC 2.75 L Hgb 7.3 L Hct 23.3 L MCV MCH 27 L MCHC RDW 20.6 H Plt Count 72 L Lymph % (Auto) [place] % (Auto) Lymph # [place] # Seg Neutrophils % Seg Neuts % (Manual) 31.0 L Lymphocytes % (Manual) 8.0 L Monocytes % (Manual) Eosinophils % (Manual) Basophils % (Manual) Nucleated RBC % 3.0 H Seg Neutrophils # Seg Neutrophils # Man Lymphocytes # (Manual) 1.0 L Monocytes # (Manual) Eosinophils # (Manual) PT INR Fibrinogen dRVVT Confirm Interp Factor V Activity POC ABG pH POC ABG pCO2 POC ABG pO2 Sodium 127 L Potassium Chloride 86.8 L Carbon Dioxide 20 L BUN 42 H Creatinine 3.5 H Glucose POC Glucose 65 L Lactic Acid Calcium 7.0 L Phosphorus Magnesium Direct Bilirubin ALT Alkaline Phosphatase Troponin T C-Reactive Protein Total Protein Albumin Triglycerides Cholesterol LDL Cholesterol Direct HDL Cholesterol Urine WBC (Auto) Urine Creatinine Urine Total Protein Vancomycin Trough Rheumatoid Factor Complement C4 Crossmatch 10/01/16 10/01/16 10/02/16 17:39 23:32 00:59 WBC RBC Hgb Hct MCV MCH MCHC RDW Plt Count Lymph % (Auto) [place] % (Auto) Lymph # [place] # Seg Neutrophils % Seg Neuts % (Manual) Lymphocytes % (Manual) Monocytes % (Manual) Eosinophils % (Manual) Basophils % (Manual) Nucleated RBC % Seg Neutrophils # Seg Neutrophils # Man Lymphocytes # (Manual) Monocytes # (Manual) Eosinophils # (Manual) PT INR Fibrinogen dRVVT Confirm Interp Factor V Activity POC ABG pH POC ABG pCO2 POC ABG pO2 Sodium Potassium Chloride Carbon Dioxide BUN Creatinine Glucose POC Glucose 107 H 52 L 145 H Lactic Acid Calcium Phosphorus Magnesium Direct Bilirubin ALT Alkaline Phosphatase Troponin T C-Reactive Protein Total Protein Albumin Triglycerides Cholesterol LDL Cholesterol Direct HDL Cholesterol Urine WBC (Auto) Urine Creatinine Urine Total Protein Vancomycin Trough Rheumatoid Factor Complement C4 Crossmatch 10/02/16 10/02/16 10/02/16 10:30 10:50 10:50 WBC 14.7 H RBC 2.76 L Hgb 7.4 L Hct 23.6 L MCV MCH 27 L MCHC RDW 20.2 H Plt Count 79 L Lymph % (Auto) [place] % (Auto) Lymph # [place] # Seg Neutrophils % Seg Neuts % (Manual) 86.0 H Lymphocytes % (Manual) 6.0 L Monocytes % (Manual) Eosinophils % (Manual) Basophils % (Manual) Nucleated RBC % Seg Neutrophils # Seg Neutrophils # Man 12.6 H Lymphocytes # (Manual) 0.9 L Monocytes # (Manual) Eosinophils # (Manual) PT INR Fibrinogen dRVVT Confirm Interp Factor V Activity POC ABG pH 7.486 H POC ABG pCO2 30.1 L POC ABG pO2 108 H Sodium 131 L Potassium 3.4 L Chloride 89.9 L Carbon Dioxide BUN 26 H Creatinine 2.6 H Glucose POC Glucose Lactic Acid Calcium 7.0 L Phosphorus Magnesium Direct Bilirubin ALT Alkaline Phosphatase Troponin T C-Reactive Protein Total Protein Albumin Triglycerides Cholesterol LDL Cholesterol Direct HDL Cholesterol Urine WBC (Auto) Urine Creatinine Urine Total Protein Vancomycin Trough Rheumatoid Factor Complement C4 Crossmatch 10/02/16 10/03/16 10/03/16 23:45 00:45 05:10 WBC 12.9 H RBC 2.77 L Hgb 7.6 L Hct 23.7 L MCV MCH 27 L MCHC RDW 19.7 H Plt Count 89 L Lymph % (Auto) [place] % (Auto) Lymph # [place] # Seg Neutrophils % Seg Neuts % (Manual) Lymphocytes % (Manual) 8.0 L Monocytes % (Manual) Eosinophils % (Manual) Basophils % (Manual) Nucleated RBC % Seg Neutrophils # 11.9 H Seg Neutrophils # Man Lymphocytes # (Manual) 1.0 L Monocytes # (Manual) Eosinophils # (Manual) PT INR Fibrinogen dRVVT Confirm Interp Factor V Activity POC ABG pH POC ABG pCO2 POC ABG pO2 Sodium Potassium Chloride Carbon Dioxide BUN Creatinine Glucose POC Glucose 55 L 199 H Lactic Acid Calcium Phosphorus Magnesium Direct Bilirubin ALT Alkaline Phosphatase Troponin T C-Reactive Protein Total Protein Albumin Triglycerides Cholesterol LDL Cholesterol Direct HDL Cholesterol Urine WBC (Auto) Urine Creatinine Urine Total Protein Vancomycin Trough Rheumatoid Factor Complement C4 Crossmatch 10/03/16 10/03/16 10/03/16 05:10 12:14 13:18 WBC RBC Hgb Hct MCV MCH MCHC RDW Plt Count Lymph % (Auto) [place] % (Auto) Lymph # [place] # Seg Neutrophils % Seg Neuts % (Manual) Lymphocytes % (Manual) Monocytes % (Manual) Eosinophils % (Manual) Basophils % (Manual) Nucleated RBC % Seg Neutrophils # Seg Neutrophils # Man Lymphocytes # (Manual) Monocytes # (Manual) Eosinophils # (Manual) PT INR Fibrinogen dRVVT Confirm Interp Factor V Activity POC ABG pH POC ABG pCO2 POC ABG pO2 Sodium 129 L Potassium 3.3 L Chloride 88.8 L Carbon Dioxide 20 L BUN 29 H Creatinine 2.8 H Glucose POC Glucose 68 L 127 H Lactic Acid Calcium 7.2 L Phosphorus Magnesium Direct Bilirubin ALT Alkaline Phosphatase Troponin T C-Reactive Protein Total Protein Albumin Triglycerides Cholesterol LDL Cholesterol Direct HDL Cholesterol Urine WBC (Auto) Urine Creatinine Urine Total Protein Vancomycin Trough Rheumatoid Factor Complement C4 Crossmatch 10/03/16 10/03/16 10/03/16 14:42 18:21 19:09 WBC RBC Hgb Hct MCV MCH MCHC RDW Plt Count Lymph % (Auto) [place] % (Auto) Lymph # [place] # Seg Neutrophils % Seg Neuts % (Manual) Lymphocytes % (Manual) Monocytes % (Manual) Eosinophils % (Manual) Basophils % (Manual) Nucleated RBC % Seg Neutrophils # Seg Neutrophils # Man Lymphocytes # (Manual) Monocytes # (Manual) Eosinophils # (Manual) PT INR Fibrinogen dRVVT Confirm Interp Factor V Activity POC ABG pH 7.499 H POC ABG pCO2 28.4 L POC ABG pO2 44 L Sodium Potassium Chloride Carbon Dioxide BUN Creatinine Glucose POC Glucose 64 L 205 H Lactic Acid Calcium Phosphorus Magnesium Direct Bilirubin ALT Alkaline Phosphatase Troponin T C-Reactive Protein Total Protein Albumin Triglycerides Cholesterol LDL Cholesterol Direct HDL Cholesterol Urine WBC (Auto) Urine Creatinine Urine Total Protein Vancomycin Trough Rheumatoid Factor Complement C4 Crossmatch 08/10/04/16 10/04/16 23:33 04:18 06:30 WBC RBC 2.54 L Hgb 7.1 L Hct 21.7 L MCV MCH MCHC RDW 19.5 H Plt Count 76 L Lymph % (Auto) [place] % (Auto) Lymph # [place] # Seg Neutrophils % Seg Neuts % (Manual) 88.0 H Lymphocytes % (Manual) 6.0 L Monocytes % (Manual) Eosinophils % (Manual) Basophils % (Manual) Nucleated RBC % Seg Neutrophils # Seg Neutrophils # Man 8.8 H Lymphocytes # (Manual) 0.6 L Monocytes # (Manual) Eosinophils # (Manual) PT INR Fibrinogen dRVVT Confirm Interp Factor V Activity POC ABG pH 7.461 H POC ABG pCO2 33.6 L POC ABG pO2 211 H Sodium Potassium Chloride Carbon Dioxide BUN Creatinine Glucose POC Glucose 136 H Lactic Acid Calcium Phosphorus Magnesium Direct Bilirubin ALT Alkaline Phosphatase Troponin T C-Reactive Protein Total Protein Albumin Triglycerides Cholesterol LDL Cholesterol Direct HDL Cholesterol Urine WBC (Auto) Urine Creatinine Urine Total Protein Vancomycin Trough Rheumatoid Factor Complement C4 Crossmatch 10/04/16 10/04/16 10/04/16 06:30 11:45 17:54 WBC RBC Hgb Hct MCV MCH MCHC RDW Plt Count Lymph % (Auto) [place] % (Auto) Lymph # [place] # Seg Neutrophils % Seg Neuts % (Manual) Lymphocytes % (Manual) Monocytes % (Manual) Eosinophils % (Manual) Basophils % (Manual) Nucleated RBC % Seg Neutrophils # Seg Neutrophils # Man Lymphocytes # (Manual) Monocytes # (Manual) Eosinophils # (Manual) PT INR Fibrinogen dRVVT Confirm Interp Factor V Activity POC ABG pH POC ABG pCO2 POC ABG pO2 Sodium 128 L Potassium Chloride 87.4 L Carbon Dioxide 20 L BUN 34 H Creatinine 2.9 H Glucose 127 H POC Glucose 158 H 160 H Lactic Acid Calcium 7.4 L Phosphorus Magnesium Direct Bilirubin ALT Alkaline Phosphatase Troponin T C-Reactive Protein Total Protein Albumin Triglycerides Cholesterol LDL Cholesterol Direct HDL Cholesterol Urine WBC (Auto) Urine Creatinine Urine Total Protein Vancomycin Trough Rheumatoid Factor Complement C4 Crossmatch 10/04/16 10/05/16 10/05/16 23:25 04:30 05:00 WBC RBC 2.64 L Hgb 7.5 L Hct 22.6 L MCV MCH MCHC RDW 19.3 H Plt Count 80 L Lymph % (Auto) [place] % (Auto) Lymph # [place] # Seg Neutrophils % Seg Neuts % (Manual) Lymphocytes % (Manual) 12.0 L Monocytes % (Manual) Eosinophils % (Manual) Basophils % (Manual) Nucleated RBC % Seg Neutrophils # Seg Neutrophils # Man Lymphocytes # (Manual) Monocytes # (Manual) Eosinophils # (Manual) PT INR Fibrinogen dRVVT Confirm Interp Factor V Activity POC ABG pH 7.475 H POC ABG pCO2 33.3 L POC ABG pO2 140 H Sodium Potassium Chloride Carbon Dioxide BUN Creatinine Glucose POC Glucose 141 H Lactic Acid Calcium Phosphorus Magnesium Direct Bilirubin ALT Alkaline Phosphatase Troponin T C-Reactive Protein Total Protein Albumin Triglycerides Cholesterol LDL Cholesterol Direct HDL Cholesterol Urine WBC (Auto) Urine Creatinine Urine Total Protein Vancomycin Trough Rheumatoid Factor Complement C4 Crossmatch 10/05/16 10/05/16 10/05/16 05:00 05:09 12:58 WBC RBC Hgb Hct MCV MCH MCHC RDW Plt Count Lymph % (Auto) [place] % (Auto) Lymph # [place] # Seg Neutrophils % Seg Neuts % (Manual) Lymphocytes % (Manual) Monocytes % (Manual) Eosinophils % (Manual) Basophils % (Manual) Nucleated RBC % Seg Neutrophils # Seg Neutrophils # Man Lymphocytes # (Manual) Monocytes # (Manual) Eosinophils # (Manual) PT INR Fibrinogen dRVVT Confirm Interp Factor V Activity POC ABG pH POC ABG pCO2 POC ABG pO2 Sodium 131 L Potassium Chloride 94.0 L Carbon Dioxide 20 L BUN 22 H Creatinine 2.0 H Glucose 123 H POC Glucose 166 H 179 H Lactic Acid Calcium 7.7 L Phosphorus 2.20 L D Magnesium Direct Bilirubin ALT Alkaline Phosphatase Troponin T C-Reactive Protein Total Protein Albumin Triglycerides Cholesterol LDL Cholesterol Direct HDL Cholesterol Urine WBC (Auto) Urine Creatinine Urine Total Protein Vancomycin Trough Rheumatoid Factor Complement C4 Crossmatch 10/05/16 10/05/16 10/05/16 15:50 18:53 23:12 WBC RBC Hgb Hct MCV MCH MCHC RDW Plt Count Lymph % (Auto) [place] % (Auto) Lymph # [place] # Seg Neutrophils % Seg Neuts % (Manual) Lymphocytes % (Manual) Monocytes % (Manual) Eosinophils % (Manual) Basophils % (Manual) Nucleated RBC % Seg Neutrophils # Seg Neutrophils # Man Lymphocytes # (Manual) Monocytes # (Manual) Eosinophils # (Manual) PT INR Fibrinogen dRVVT Confirm Interp Factor V Activity POC ABG pH POC ABG pCO2 POC ABG pO2 Sodium Potassium Chloride Carbon Dioxide BUN Creatinine Glucose POC Glucose 150 H 164 H Lactic Acid Calcium Phosphorus Magnesium Direct Bilirubin ALT Alkaline Phosphatase Troponin T C-Reactive Protein Total Protein Albumin Triglycerides Cholesterol LDL Cholesterol Direct HDL Cholesterol Urine WBC (Auto) Urine Creatinine Urine Total Protein Vancomycin Trough Rheumatoid Factor Complement C4 Crossmatch See Detail 10/06/16 10/06/16 10/06/16 03:50 03:50 04:53 WBC RBC 3.00 L Hgb 8.6 L Hct 25.8 L MCV MCH MCHC RDW 17.9 H Plt Count 65 L Lymph % (Auto) [place] % (Auto) Lymph # [place] # Seg Neutrophils % Seg Neuts % (Manual) 30.0 L Lymphocytes % (Manual) 5.0 L Monocytes % (Manual) Eosinophils % (Manual) Basophils % (Manual) Nucleated RBC % Seg Neutrophils # Seg Neutrophils # Man Lymphocytes # (Manual) 0.4 L Monocytes # (Manual) Eosinophils # (Manual) PT INR Fibrinogen dRVVT Confirm Interp Factor V Activity POC ABG pH 7.310 L POC ABG pCO2 49.0 H POC ABG pO2 Sodium 133 L Potassium Chloride 95.9 L Carbon Dioxide BUN 26 H Creatinine 2.0 H Glucose 116 H POC Glucose Lactic Acid Calcium 7.8 L Phosphorus Magnesium Direct Bilirubin ALT Alkaline Phosphatase Troponin T C-Reactive Protein Total Protein Albumin Triglycerides Cholesterol LDL Cholesterol Direct HDL Cholesterol Urine WBC (Auto) Urine Creatinine Urine Total Protein Vancomycin Trough Rheumatoid Factor Complement C4 Crossmatch 10/06/16 10/06/16 10/06/16 05:23 11:52 18:34 WBC RBC Hgb Hct MCV MCH MCHC RDW Plt Count Lymph % (Auto) [place] % (Auto) Lymph # [place] # Seg Neutrophils % Seg Neuts % (Manual) Lymphocytes % (Manual) Monocytes % (Manual) Eosinophils % (Manual) Basophils % (Manual) Nucleated RBC % Seg Neutrophils # Seg Neutrophils # Man Lymphocytes # (Manual) Monocytes # (Manual) Eosinophils # (Manual) PT INR Fibrinogen dRVVT Confirm Interp Factor V Activity POC ABG pH POC ABG pCO2 POC ABG pO2 Sodium Potassium Chloride Carbon Dioxide BUN Creatinine Glucose POC Glucose 126 H 116 H 129 H Lactic Acid Calcium Phosphorus Magnesium Direct Bilirubin ALT Alkaline Phosphatase Troponin T C-Reactive Protein Total Protein Albumin Triglycerides Cholesterol LDL Cholesterol Direct HDL Cholesterol Urine WBC (Auto) Urine Creatinine Urine Total Protein Vancomycin Trough Rheumatoid Factor Complement C4 Crossmatch 10/07/16 10/07/16 10/07/16 05:00 10:00 10:00 WBC 17.0 H RBC 2.68 L Hgb 7.3 L Hct 25.3 L MCV MCH 27 L MCHC 29 L RDW 19.6 H Plt Count 74 L Lymph % (Auto) [place] % (Auto) Lymph # [place] # Seg Neutrophils % Seg Neuts % (Manual) Lymphocytes % (Manual) 12.0 L Monocytes % (Manual) Eosinophils % (Manual) Basophils % (Manual) Nucleated RBC % 4.0 H Seg Neutrophils # Seg Neutrophils # Man 10.7 H Lymphocytes # (Manual) Monocytes # (Manual) Eosinophils # (Manual) PT INR Fibrinogen dRVVT Confirm Interp Factor V Activity POC ABG pH POC ABG pCO2 POC ABG pO2 Sodium 130 L Potassium 3.2 L Chloride 93.9 L Carbon Dioxide 20 L BUN 44 H Creatinine 2.7 H Glucose 129 H POC Glucose Lactic Acid Calcium 7.4 L Phosphorus Magnesium Direct Bilirubin ALT 6 L Alkaline Phosphatase 195 H Troponin T C-Reactive Protein 19.40 H Total Protein 4.9 L Albumin 1.0 L Triglycerides Cholesterol LDL Cholesterol Direct HDL Cholesterol Urine WBC (Auto) Urine Creatinine Urine Total Protein Vancomycin Trough Rheumatoid Factor Complement C4 Crossmatch 10/07/16 10/07/16 10/07/16 11:24 18:10 18:30 WBC RBC Hgb Hct MCV MCH MCHC RDW Plt Count Lymph % (Auto) [place] % (Auto) Lymph # [place] # Seg Neutrophils % Seg Neuts % (Manual) Lymphocytes % (Manual) Monocytes % (Manual) Eosinophils % (Manual) Basophils % (Manual) Nucleated RBC % Seg Neutrophils # Seg Neutrophils # Man Lymphocytes # (Manual) Monocytes # (Manual) Eosinophils # (Manual) PT INR Fibrinogen dRVVT Confirm Interp Factor V Activity POC ABG pH POC ABG pCO2 POC ABG pO2 Sodium Potassium Chloride Carbon Dioxide BUN Creatinine Glucose POC Glucose 116 H 130 H Lactic Acid Calcium Phosphorus Magnesium Direct Bilirubin ALT Alkaline Phosphatase Troponin T C-Reactive Protein Total Protein Albumin Triglycerides Cholesterol LDL Cholesterol Direct HDL Cholesterol Urine WBC (Auto) > 182.0 H Urine Creatinine Urine Total Protein Vancomycin Trough Rheumatoid Factor Complement C4 Crossmatch 10/08/16 10/08/16 10/08/16 00:00 04:00 04:30 WBC RBC 5.15 H Hgb 14.4 H D Hct 44.5 H D MCV MCH MCHC RDW 19.5 H Plt Count 56 L Lymph % (Auto) [place] % (Auto) Lymph # [place] # Seg Neutrophils % Seg Neuts % (Manual) 24.0 L Lymphocytes % (Manual) 8.0 L Monocytes % (Manual) Eosinophils % (Manual) Basophils % (Manual) Nucleated RBC % 9.0 H Seg Neutrophils # Seg Neutrophils # Man Lymphocytes # (Manual) 0.7 L Monocytes # (Manual) Eosinophils # (Manual) PT INR Fibrinogen dRVVT Confirm Interp Factor V Activity POC ABG pH POC ABG pCO2 POC ABG pO2 Sodium 132 L Potassium 3.3 L Chloride 93.6 L Carbon Dioxide 17 L BUN 59 H Creatinine 2.7 H Glucose 121 H POC Glucose 122 H Lactic Acid Calcium 7.6 L Phosphorus Magnesium Direct Bilirubin ALT Alkaline Phosphatase Troponin T C-Reactive Protein Total Protein Albumin Triglycerides Cholesterol LDL Cholesterol Direct HDL Cholesterol Urine WBC (Auto) Urine Creatinine Urine Total Protein Vancomycin Trough Rheumatoid Factor Complement C4 Crossmatch 10/08/16 10/08/16 10/08/16 05:30 11:51 12:49 WBC RBC Hgb Hct MCV MCH MCHC RDW Plt Count Lymph % (Auto) [place] % (Auto) Lymph # [place] # Seg Neutrophils % Seg Neuts % (Manual) Lymphocytes % (Manual) Monocytes % (Manual) Eosinophils % (Manual) Basophils % (Manual) Nucleated RBC % Seg Neutrophils # Seg Neutrophils # Man Lymphocytes # (Manual) Monocytes # (Manual) Eosinophils # (Manual) PT INR Fibrinogen dRVVT Confirm Interp Factor V Activity POC ABG pH POC ABG pCO2 28.2 L POC ABG pO2 111 H Sodium Potassium Chloride Carbon Dioxide BUN Creatinine Glucose POC Glucose 125 H 150 H Lactic Acid Calcium Phosphorus Magnesium Direct Bilirubin ALT Alkaline Phosphatase Troponin T C-Reactive Protein Total Protein Albumin Triglycerides Cholesterol LDL Cholesterol Direct HDL Cholesterol Urine WBC (Auto) Urine Creatinine Urine Total Protein Vancomycin Trough Rheumatoid Factor Complement C4 Crossmatch 10/08/16 10/08/16 10/08/16 17:07 19:30 19:30 WBC RBC Hgb 7.1 L D Hct 22.4 L D MCV MCH MCHC RDW Plt Count Lymph % (Auto) [place] % (Auto) Lymph # [place] # Seg Neutrophils % Seg Neuts % (Manual) Lymphocytes % (Manual) Monocytes % (Manual) Eosinophils % (Manual) Basophils % (Manual) Nucleated RBC % Seg Neutrophils # Seg Neutrophils # Man Lymphocytes # (Manual) Monocytes # (Manual) Eosinophils # (Manual) PT 18.0 H INR 1.41 H Fibrinogen dRVVT Confirm Interp Factor V Activity POC ABG pH POC ABG pCO2 POC ABG pO2 Sodium Potassium Chloride Carbon Dioxide BUN Creatinine Glucose POC Glucose 145 H Lactic Acid Calcium Phosphorus Magnesium Direct Bilirubin ALT Alkaline Phosphatase Troponin T C-Reactive Protein Total Protein Albumin Triglycerides Cholesterol LDL Cholesterol Direct HDL Cholesterol Urine WBC (Auto) Urine Creatinine Urine Total Protein Vancomycin Trough Rheumatoid Factor Complement C4 Crossmatch 10/09/16 10/09/16 10/09/16 03:45 03:45 03:45 WBC 12.6 H RBC 2.36 L Hgb 6.7 L Hct 21.1 L MCV MCH MCHC RDW 19.5 H Plt Count 75 L Lymph % (Auto) [place] % (Auto) Lymph # [place] # Seg Neutrophils % Seg Neuts % (Manual) Lymphocytes % (Manual) Monocytes % (Manual) 10.0 H Eosinophils % (Manual) Basophils % (Manual) Nucleated RBC % 3.0 H Seg Neutrophils # Seg Neutrophils # Man Lymphocytes # (Manual) Monocytes # (Manual) 1.3 H Eosinophils # (Manual) PT 19.0 H INR 1.51 H Fibrinogen dRVVT Confirm Interp Factor V Activity POC ABG pH POC ABG pCO2 POC ABG pO2 Sodium 135 L Potassium Chloride Carbon Dioxide 17 L BUN 81 H Creatinine 3.2 H Glucose 109 H POC Glucose Lactic Acid Calcium 7.4 L Phosphorus 4.60 H D Magnesium Direct Bilirubin ALT Alkaline Phosphatase Troponin T C-Reactive Protein Total Protein Albumin Triglycerides Cholesterol LDL Cholesterol Direct HDL Cholesterol Urine WBC (Auto) Urine Creatinine Urine Total Protein Vancomycin Trough Rheumatoid Factor Complement C4 Crossmatch 10/09/16 10/09/16 10/09/16 05:14 07:20 11:46 WBC RBC Hgb Hct MCV MCH MCHC RDW Plt Count Lymph % (Auto) [place] % (Auto) Lymph # [place] # Seg Neutrophils % Seg Neuts % (Manual) Lymphocytes % (Manual) Monocytes % (Manual) Eosinophils % (Manual) Basophils % (Manual) Nucleated RBC % Seg Neutrophils # Seg Neutrophils # Man Lymphocytes # (Manual) Monocytes # (Manual) Eosinophils # (Manual) PT INR Fibrinogen dRVVT Confirm Interp Factor V Activity POC ABG pH POC ABG pCO2 POC ABG pO2 Sodium Potassium Chloride Carbon Dioxide BUN Creatinine Glucose POC Glucose 151 H 133 H Lactic Acid Calcium Phosphorus Magnesium Direct Bilirubin ALT Alkaline Phosphatase Troponin T C-Reactive Protein Total Protein Albumin Triglycerides Cholesterol LDL Cholesterol Direct HDL Cholesterol Urine WBC (Auto) Urine Creatinine Urine Total Protein Vancomycin Trough Rheumatoid Factor Complement C4 Crossmatch See Detail 10/09/16 10/09/16 10/10/16 16:20 16:43 05:00 WBC RBC Hgb 7.2 L Hct 22.2 L MCV MCH MCHC RDW Plt Count Lymph % (Auto) [place] % (Auto) Lymph # [place] # Seg Neutrophils % Seg Neuts % (Manual) Lymphocytes % (Manual) Monocytes % (Manual) Eosinophils % (Manual) Basophils % (Manual) Nucleated RBC % Seg Neutrophils # Seg Neutrophils # Man Lymphocytes # (Manual) Monocytes # (Manual) Eosinophils # (Manual) PT INR Fibrinogen dRVVT Confirm Interp Factor V Activity POC ABG pH POC ABG pCO2 POC ABG pO2 Sodium Potassium 5.7 H D Chloride Carbon Dioxide 16 L BUN 94 H Creatinine 3.1 H Glucose 131 H POC Glucose 141 H Lactic Acid Calcium 8.2 L Phosphorus 5.10 H Magnesium 2.40 H Direct Bilirubin 0.3 H ALT < 5 L Alkaline Phosphatase 319 H Troponin T C-Reactive Protein Total Protein 5.1 L Albumin 1.0 L Triglycerides Cholesterol LDL Cholesterol Direct HDL Cholesterol Urine WBC (Auto) Urine Creatinine Urine Total Protein Vancomycin Trough Rheumatoid Factor Complement C4 Crossmatch 10/10/16 05:00 WBC 18.5 H RBC 2.19 L Hgb 6.4 L Hct 19.6 L* MCV MCH MCHC RDW 19.3 H Plt Count 93 L Lymph % (Auto) [place] % (Auto) Lymph # [place] # Seg Neutrophils % Seg Neuts % (Manual) Lymphocytes % (Manual) 10.0 L Monocytes % (Manual) Eosinophils % (Manual) Basophils % (Manual) Nucleated RBC % 4.0 H Seg Neutrophils # Seg Neutrophils # Man 11.3 H Lymphocytes # (Manual) Monocytes # (Manual) Eosinophils # (Manual) PT INR Fibrinogen dRVVT Confirm Interp Factor V Activity POC ABG pH POC ABG pCO2 POC ABG pO2 Sodium Potassium Chloride Carbon Dioxide BUN Creatinine Glucose POC Glucose Lactic Acid Calcium Phosphorus Magnesium Direct Bilirubin ALT Alkaline Phosphatase Troponin T C-Reactive Protein Total Protein Albumin Triglycerides Cholesterol LDL Cholesterol Direct HDL Cholesterol Urine WBC (Auto) Urine Creatinine Urine Total Protein Vancomycin Trough Rheumatoid Factor Complement C4 Crossmatch Allied health notes reviewed: RT
--- NOTE | 2016-10-10 11:36 | Progress Note ---
Assessment and Plan Acute hypoxic respiratory failure on mechanical ventilation s/p trach and PEG Acute left MCA CVA echocardiogram demonstrates at least moderate LVH but a normal LV systolic function, EF 50-55%. no thrombus visualized on transthoracic echocardiogram. Dislodged PEG tube s/p repair of gastric perforation with wedge gastrectomy Hypertension was hypotensive requiring pressor support Acute on chronic renal failure Fungemia Diabetes mellitus Anemia requiring transfusion of PRBCs Thrombocytopenia Hyponatremia Paroxysmal Afib s/p failed cardioversion on 09/25 on amiodarone drip considered not a candidate for anticoagulation due to severe anemia and thrombocytopenia. Recommendations: Continue IV amiodarone drip until able to resume meds per PEG tube. Conservative cardiac management. Subjective Date of service: 10/10/16 Principal diagnosis: hematochezia Interval history: Sinus rhythm on telemetry. Objective Vital Signs Temp Pulse Pulse Resp Resp BP Pulse Ox 10/10/16 09:00 80 27 H 150/86 100 10/10/16 08:49 78 24 10/10/16 08:19 69 17 133/66 100 10/10/16 08:01 77 26 H 133/66 100 10/10/16 07:53 98.1 F 10/10/16 07:01 71 22 92/41 100 10/10/16 06:00 73 22 159/81 100 10/10/16 05:00 72 21 159/81 100 10/10/16 04:01 71 22 125/71 100 10/10/16 04:00 98.4 F 69 71 22 171/75 100 10/10/16 03:00 125/71 10/10/16 02:42 83 186/101 10/10/16 02:00 92 H 27 H 170/92 100 10/10/16 01:00 89 27 H 158/90 100 10/10/16 00:00 98.4 F 78 19 126/66 100 10/09/16 23:00 83 20 138/79 100 10/09/16 22:01 82 12 132/73 100 10/09/16 22:00 19 10/09/16 21:00 89 30 H 168/84 100 10/09/16 20:00 98.7 F 88 29 H 167/86 100 10/09/16 19:45 88 10/09/16 19:27 96 H 25 H 171/90 100 10/09/16 19:00 93 H 12 171/86 100 10/09/16 18:03 90 117/59 100 10/09/16 18:01 81 117/59 100 10/09/16 17:31 92 H 161/95 100 10/09/16 17:00 87 165/90 100 10/09/16 16:31 92 H 161/95 100 10/09/16 16:03 87 27 H 149/89 100 10/09/16 16:00 97.7 F 90 161/95 100 10/09/16 15:31 90 149/89 100 10/09/16 15:00 88 149/89 100 10/09/16 14:31 94 H 184/94 10/09/16 14:00 93 H 184/94 100 10/09/16 13:31 93 H 117/57 100 10/09/16 13:00 73 117/57 10/09/16 12:31 92 H 118/59 100 10/09/16 12:00 97.6 F 72 118/59 100 10/09/16 11:50 88 21 193/96 100 - Physical Examination General: Other (intubated via trach) Cardiac: Positive: Reg Rate and Rhythm - Labs and Meds Cardiac Enzymes 10/10/16 Range/Units 05:00 AST 21 (5-40) units/L CBC 10/09/16 10/10/16 Range/Units 16:20 05:00 WBC 18.5 H (4.5-11.0) K/mm3 RBC 2.19 L (3.65-5.03) M/mm3 Hgb 7.2 L 6.4 L (10.1-14.3) gm/dl Hct 22.2 L 19.6 L* (30.3-42.9) % Plt Count 93 L (140-440) K/mm3 Comprehensive Metabolic Panel 10/10/16 Range/Units 05:00 Sodium 137 (137-145) mmol/L Potassium 5.7 H D (3.6-5.0) mmol/L Chloride 98.9 (98-107) mmol/L Carbon Dioxide 16 L (22-30) mmol/L BUN 94 H (7-17) mg/dL Creatinine 3.1 H (0.7-1.2) mg/dL Glucose 131 H (65-100) mg/dL Calcium 8.2 L (8.4-10.2) mg/dL Direct Bilirubin 0.3 H (0-0.2) mg/dL Indirect Bilirubin 0.1 mg/dL AST 21 (5-40) units/L ALT < 5 L (7-56) units/L Alkaline Phosphatase 319 H (35-129) units/L Total Protein 5.1 L (6.3-8.2) g/dL Albumin 1.0 L (3.9-5) g/dL - Imaging and Cardiology EKG: image reviewed - Allied health notes Allied health notes reviewed: RT
--- NOTE | 2016-10-10 11:57 | XRay Report ---
RIGHT SHOULDER, ONE VIEW History: Dislocated right shoulder, right shoulder pain. Findings: Single portable AP view of the right shoulder is presented and severely limited. Articulation at the right glenohumeral joint does appear slightly abnormal. There appears to be widening of the glenohumeral joint. This could represent a large joint effusion or a posterior dislocation. No anterior, inferior dislocation is identified. The a.c. joint is anatomic. Impression: Slightly abnormal single view of the right shoulder. Please see above. Repeat exam with [address] right shoulder is recommended to further evaluate.
[2016-10-10] MEDS ORDERED: D10W 1,000 ML IV SCH (12:00)
[2016-10-10] MEDS ORDERED: NACL 0.9% 100 ML IV PRN (13:18)
[2016-10-10] MEDS: PROTONIX IV SCH ×2 (13:46→21:35)
[2016-10-10] MEDS: ASPIRIN PO SCH (13:46)
[2016-10-10] MEDS ORDERED: NACL 0.9% 1000 ML 2,000 ML ONE (15:42)
[2016-10-10] MEDS: HEPARIN IV PRN (18:40)
[2016-10-10] MEDS ORDERED: TPN ADULT 2,016 ML IV SCH (20:00)
[2016-10-10] MEDS: ALDACTONE PO SCH (20:49)
[2016-10-10] MEDS: TPN ADULT 2,016 ML IV SCH (20:49)
[2016-10-10] MEDS: CORDARONE 900 MG in D5W 482 ML IV SCH (20:52)
[2016-10-10] MEDS: MYCAMINE 100 MG in NACL 0.9% 100 ML IV SCH (20:52)
[2016-10-11] MEDS: HumuLIN R SUB-Q SCH ×4 (00:16→17:57)
[2016-10-11] MEDS: fentaNYL DRIP Premix 2,000 MCG/100 ML BAG IV SCH ×2 (00:18→19:34)
[2016-10-11 04:58] LABS: Hematocrit 28.7 % (30.3-42.9); Hemoglobin 9.3 gm/dl (10.1-14.3); Mean Corpuscular HGB Conc 33 % (30-34); Mean Corpuscular Hemoglobin 30 pg (28-32); Mean Corpuscular Volume 92 fl (79-97); Platelet Count 128 K/mm3 (140-440); Red Blood Count 3.12 M/mm3 (3.65-5.03); Red Cell Distribution Width 17.7 % (13.2-15.2)
[2016-10-11 05:13] LABS: BUN/Creatinine Ratio 27.14; Calcium 8.3 mg/dL (8.4-10.2)
[2016-10-11] MEDS: ZOSYN/NS 2.25 GM/50ML 2.25 GM/50 ML BAG IV SCH ×2 (05:46→14:10)
--- NOTE | 2016-10-11 08:39 | Consultation ---
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 denies: smoking, alcohol abuse, prescription drug abuse , IV drug use Family history: hypertension (per chart review) Medications and Allergies Allergies Allergy/AdvReac Type Severity Reaction Status Date / Time No Known Allergies Allergy Verified 04/14/15 06:02 Home Medications Medication Instructions Recorded Confirmed Last Taken Type Acetaminophen [Tylenol Arthritis] 650 mg PO QID PRN #30 tablet.er 02/15/1609/12 Unknown Rx Albuterol Sulfate [Proventil HFA] 6.7 gm INHALATION Q4-6H 02/15/16 09/12/16 History Insulin Glargine [Lantus VIAL] 30 units SQ QHS 02/15/16 09/12/16 02/15/16 History Clonidine HCl [Catapres] 0.3 mg PO TID #90 tablet 06/15/16 09/12/16 Unknown Rx Lisinopril [Zestril] 40 mg PO BID #60 tablet 06/15/16 09/12/16 Unknown Rx Polyethylene Glycol 3350 [Miralax 17 gm PO QDAY PRN #10 packet 06/15/16 Unknown Rx 3350] Albuterol 2 inhalation INHALATION Q4HR PRN 09/12/16 09/12/16 Unknown History AtorvaSTATin [Lipitor] 20 mg PO QHS 09/12/16 09/12/16 Unknown History Flovent 110 MCG/PUFF HFA 1 inhalation INHALATION QHS 09/12/16 09/12/16 Unknown History Furosemide [Lasix] 20 mg PO QDAY 09/12/16 09/12/16 Unknown History HumaLOG VIAL 45 units SUB-Q TID 09/12/16 09/12/16 Unknown History Insulin Aspart [NovoLOG Flexpen] 30 units SUB-Q TID MDD 30 Units 09/12/16 Unknown History Labetalol HCl 300 mg PO BID 09/12/16 09/12/16 Unknown History Spironolactone [Aldactone] 25 mg PO QDAY 09/12/16 09/12/16 Unknown History hydrALAZINE [Apresoline] 25 mg PO BID 09/12/16 09/12/16 Unknown History Active Meds: Active Medications Lipase/Protease/Amylase (Pancregeoffe Dr 10,500 Unit) 1 each FEEDTUBE PRN PRN PRN Reason: For Clogged Feeding Tube Epoetin Mariusz (Epogen) 20,000 unit IV KERWIN PRN PRN Reason: hemodialysis Last Admin: 10/10/16 17:02 Dose: 20,000 unit Heparin Sodium (Porcine) (Heparin) 5,000 unit IV KERWIN PRN PRN Reason: hemodialysis Last Admin: 10/10/16 18:40 Dose: 5,000 unit Micafungin Sodium 100 mg/ (Sodium Chloride) 100 mls @ 100 mls/hr IV Q24H AGUSTIN PRN Reason: Protocol Stop: 10/14/16 23:59 Last Admin: 10/10/16 20:52 Dose: 100 mls/hr Sodium Chloride (Nacl 0.9%) 100 mls @ 999 mls/hr IV KERWIN PRN PRN Reason: Hypotension Amiodarone HCl 900 mg/ (Dextrose) 500 mls @ 16.66 mls/hr IV DIRECT AGUSTIN; 0.5 MG/MIN PRN Reason: Protocol Last Admin: 10/10/16 20:52 Dose: 0.5 mg/min, 16.66 mls/hr Fentanyl Citrate (Fentanyl Drip Premix) 2,000 mcg in 100 mls @ 4.48 mls/hr IV TITR AGUSTIN; 1 MCG/KG/HR PRN Reason: Protocol Last Admin: 10/11/16 00:18 Dose: 1 mcg/kg/hr, 4.48 mls/hr Piperacillin Sod/Tazobactam Sod (Zosyn/Ns 2.25 Gm/50ml) 2.25 gm in 50 mls @ 100 mls/hr IV Q8HR AGUSTIN PRN Reason: Protocol Last Admin: 10/11/16 05:46 Dose: 100 mls/hr Amino Acids/Electrolytes/Dextrose (Tpn Adult) 2,016 mls @ 84 mls/hr IV DAILY@ 1999 [facility] PRN Reason: Protocol Stop: 10/11/16 19:59 Last Admin: 10/10/16 20:50 Dose: 84 mls/hr Insulin Human Regular (Novolin R) 0 units SUB-Q Q6HR [facility] PRN Reason: Protocol Last Admin: 10/11/16 05:46 Dose: 2 units Metoprolol Tartrate (Lopressor) 2.5 mg IV Q4H PRN PRN Reason: HR >130 Last Admin: 10/08/16 06:53 Dose: 2.5 mg Multi-Ingred Cream/Lotion/Oil/Oint (Artificial Tears Ophth Oint) 1 applic OU Q4HR PRN PRN Reason: Dry Eye(s) Ondansetron HCl (Zofran) 4 mg IV Q8H PRN PRN Reason: N/V unrelieved by Shelly Last Admin: 10/08/16 06:53 Dose: 4 mg Pantoprazole Sodium (Protonix) 40 mg IV BID [facility] Last Admin: 10/10/16 21:35 Dose: 40 mg Simple Syrup (Simple Syrup) 30 ml FEEDTUBE PRN PRN PRN Reason: Hypoglycemia Simple Syrup (Simple Syrup) 15 ml FEEDTUBE PRN PRN PRN Reason: Hypoglycemia Sodium Bicarbonate (Sodium Bicarbonate) 325 mg FEEDTUBE PRN PRN PRN Reason: For Clogged Feeding Tube Exam - Constitutional Vitals: Temp Pulse Resp BP Pulse Ox 98.3 F 101 H 29 H 130/72 99 10/11/16 04:00 10/11/16 06:00 10/11/16 06:00 10/11/16 06:00 10/11/16 06:00 Results - Labs CBC & Chem 7: 10/11/16 04:15 10/11/16 04:15 Labs: Abnormal lab results 09/25/16 10/09/16 10/10/16 Range/Units 10:30 07:20 11:19 WBC (4.5-11.0) K/mm3 RBC (3.65-5.03) M/mm3 Hgb (10.1-14.3) gm/dl Hct (30.3-42.9) % RDW (13.2-15.2) % Plt Count (140-440) K/mm3 Chloride (98-107) mmol/L Carbon Dioxide (22-30) mmol/L BUN (7-17) mg/dL Creatinine (0.7-1.2) mg/dL Glucose (65-100) mg/dL POC Glucose 153 H (70-105) Calcium (8.4-10.2) mg/dL Crossmatch See Detail See Detail 10/10/16 10/10/16 10/11/16 Range/Units 17:50 23:30 04:15 WBC (4.5-11.0) K/mm3 RBC (3.65-5.03) M/mm3 Hgb (10.1-14.3) gm/dl Hct (30.3-42.9) % RDW (13.2-15.2) % Plt Count (140-440) K/mm3 Chloride 96.4 L (98-107) mmol/L Carbon Dioxide 21 L (22-30) mmol/L BUN 57 H (7-17) mg/dL Creatinine 2.1 H (0.7-1.2) mg/dL Glucose 151 H (65-100) mg/dL POC Glucose 146 H 141 H (70-105) Calcium 8.3 L (8.4-10.2) mg/dL Crossmatch 10/11/16 10/11/16 Range/Units 04:15 05:30 WBC 28.3 H (4.5-11.0) K/mm3 RBC 3.12 L (3.65-5.03) M/mm3 Hgb 9.3 L (10.1-14.3) gm/dl Hct 28.7 L D (30.3-42.9) % RDW 17.7 H (13.2-15.2) % Plt Count 128 L (140-440) K/mm3 Chloride (98-107) mmol/L Carbon Dioxide (22-30) mmol/L BUN (7-17) mg/dL Creatinine (0.7-1.2) mg/dL Glucose (65-100) mg/dL POC Glucose 167 H (70-105) Calcium (8.4-10.2) mg/dL Crossmatch
--- NOTE | 2016-10-11 09:20 | Consultation ---
HISTORY OF PRESENT ILLNESS: This is a 46-year-old female that time reevaluating at this time on 10/11/2016. 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 In the interval, the patient has been vent dependent and I spoke with her son about 1 week ago, advised him as to the situation. I, after reviewing the scan on 10/03/2016, felt that there was evidence of a new infarct in the right parietal lobe and she did have demonstrable weakness in the left side. Now on followup evaluation, she is off the ventilator on a T-tube post tracheostomy and she has her eyes open, but she does not have spontaneous movement of the arms or legs. She has her eyes open and has random gaze to the left and to the right, although primarily her gaze focuses to the right. She does not follow simple commands. She does not appear to be understanding spoken commands, does not respond to voice, does not track me visually. Her pupils are 4 mm. She is fully awake, but does not have spontaneous movement and she does not attempt to communicate. IMPRESSION: This patient's examination is stable from about 1 week ago when I last had a detailed note on her. She has a number of problems including hypoxic respiratory failure and both left and right middle cerebral artery cerebrovascular accidents, I suspect on the basis of atrial fibrillation, and there are other issues as well including anemia, diabetes, renal failure and she has had intermittent periods of hypotension with shock. Prognosis at this point is extremely poor given her age, multiplicity of her infarcts, although at this point she is awake and is no longer in a deep coma. Our plan is to recheck an EEG to be sure she does not have any form of subclinical seizure activity. I will review this and leave a note about the result. JOB# [id number] JORGE/KATIE
--- NOTE | 2016-10-11 09:20 | Progress Note ---
Assessment and Plan Assessment and plan: Assessment and plan: Acute hypoxic respiratory failure On mechanical ventilation Status post trach Acute massive left MCA CVA Status post TPA Aspirin/statin Supportive care Toxic metabolic Encephalopathy Multifactorial. Still not following commands Dislodged PEG Status post wedge gastrectomy, repair of gastric perforation, abdominal washout and drain placement Surgery following Severe sepsis with septic shock UTI/candidemia/peritonitis due to gastric perforation from dislodged PEG Off pressors She is on Zosyn and micafungin Antibiotic/antifungals per ID recommendation Acute blood loss anemia requiring multiple PRBC transfusions. Hemoglobin 9.3 today after PRBC transfusion. Repeat stool occult blood positive. GI Physician following Monitor H&H closely, Acute on chronic kidney disease, had dialysis [id number]. Creatinine 2.1. Electrolyte imbalances Replete, recheck Paroxysmal A. fib Status post failed conversion on 09/25 Amiodarone drip No anticoagulation due to anemia/thrombocytopenia, massive CVA Diabetes mellitus type 2 Insulin/SSI Severe protein caloric malnutrition Currently on TPN Extensive back skin peeling Thrombocytopenia DVT prophylaxis SCDs, no pharmacological agent given anemia requiring multiple PRBC transfusions , thrombocytopenia, massive stroke Hyperkalemia. Give Insulin. For dialysis today Full code status Prognosis guarded Had a family meeting yesterday in which I discussed plan. Present at meeting was the Risk management staff, global project manager and mysel, patient's son and patients' sister. History Interval history: Patient with multi-organ failure, No more fever past 2 days, Still does not follow commands Hospitalist Physical - Physical exam Narrative exam: Gen appearance: Trach, not in acute distress HEENT: Atraumatic Neck: Tracheostomy Lungs: Clear to auscultation bilaterally, no crackles or wheezes Heart :S1 and S2 irregular, no murmurs, rubs or gallop Abdomen: Soft, surgical drain, dressing over left upper quadrant, bowel sounds present Extremities : bilateral edema, upper and lower ext Neuro: Does not follow commands - Constitutional Vitals: Temp Pulse Resp BP Pulse Ox 99.0 F 101 H 29 H 130/72 99 10/11/16 08:00 10/11/16 06:00 10/11/16 06:00 10/11/16 06:00 10/11/16 06:00 General appearance: Present: mild distress, obese, other (on vent, non- responsive) Results - Labs CBC & Chem 7: 10/11/16 04:15 10/11/16 04:15 Labs: Laboratory Last Values WBC 28.3 K/mm3 (4.5-11.0) H 10/11/16 04:15 RBC 3.12 M/mm3 (3.65-5.03) L 10/11/16 04:15 Hgb 9.3 gm/dl (10.1-14.3) L 10/11/16 04:15 Hct 28.7 % (30.3-42.9) L D 10/11/16 04:15 MCV 92 fl (79-97) 10/11/16 04:15 MCH 30 pg (28-32) 10/11/16 04:15 MCHC 33 % (30-34) 10/11/16 04:15 RDW 17.7 % (13.2-15.2) H 10/11/16 04:15 Plt Count 128 K/mm3 (140-440) L 10/11/16 04:15 Lymph % (Auto) 6.9 % (13.4-35.0) L 09/21/16 07:45 [place] % (Auto) 0.5 % (0.0-7.3) 10/03/16 05:10 Eos % (Auto) 1.3 % (0.0-4.3) 10/03/16 05:10 Baso % (Auto) 0.2 % (0.0-1.8) 09/21/16 07:45 Lymph # 0.9 K/mm3 (1.2-5.4) L 09/21/16 07:45 [place] # 0.1 K/mm3 (0.0-0.8) 10/03/16 05:10 Eos # 0.2 K/mm3 (0.0-0.4) 10/03/16 05:10 Baso # 0.0 K/mm3 (0.0-0.1) 10/03/16 05:10 Add Manual Diff Complete 10/10/16 05:00 Total Counted 100 10/10/16 05:00 Seg Neutrophils % Gastroenterology Nurse Practitioner 10/03/16 05:10 Seg Neuts % (Manual) 61.0 % (40.0-70.0) 10/10/16 05:00 Band Neutrophils % 24.0 % 10/10/16 05:00 Lymphocytes % (Manual) 10.0 % (13.4-35.0) L 10/10/16 05:00 Reactive Lymphs % (Man) 0 % 10/10/16 05:00 Monocytes % (Manual) 2.0 % (0.0-7.3) 10/10/16 05:00 Eosinophils % (Manual) 0 % (0.0-4.3) 10/10/16 05:00 Basophils % (Manual) 0 % (0.0-1.8) 10/10/16 05:00 Metamyelocytes % 3.0 % 10/10/16 05:00 Myelocytes % 0 % 10/10/16 05:00 Promyelocytes % 0 % 10/10/16 05:00 Blast Cells % 0 % 10/10/16 05:00 Nucleated RBC % 4.0 % (0.0-0.9) H 10/10/16 05:00 Seg Neutrophils # 11.9 K/mm3 (1.8-7.7) H 10/03/16 05:10 Seg Neutrophils # Man 11.3 K/mm3 (1.8-7.7) H 10/10/16 05:00 Band Neutrophils # 4.4 K/mm3 10/10/16 05:00 Lymphocytes # (Manual) 1.9 K/mm3 (1.2-5.4) 10/10/16 05:00 Abs React Lymphs (Man) 0.0 K/mm3 10/10/16 05:00 Monocytes # (Manual) 0.4 K/mm3 (0.0-0.8) 10/10/16 05:00 Eosinophils # (Manual) 0.0 K/mm3 (0.0-0.4) 10/10/16 05:00 Basophils # (Manual) 0.0 K/mm3 (0.0-0.1) 10/10/16 05:00 Metamyelocytes # 0.6 K/mm3 10/10/16 05:00 Myelocytes # 0.0 K/mm3 10/10/16 05:00 Promyelocytes # 0.0 K/mm3 10/10/16 05:00 Blast Cells # 0.0 K/mm3 10/10/16 05:00 Pathologist Review 09/13/16 04:00 WBC Morphology Not Reportable 10/10/16 05:00 Hypersegmented Neuts Not Reportable 10/10/16 05:00 Hyposegmented Neuts Not Reportable 10/10/16 05:00 Hypogranular Neuts Not Reportable 10/10/16 05:00 Smudge Cells Not Reportable 10/10/16 05:00 Toxic Granulation Not Reportable 10/10/16 05:00 Toxic Vacuolation Not Reportable 10/10/16 05:00 Dohle Bodies Not Reportable 10/10/16 05:00 Pelger-Huet Anomaly Not Reportable 10/10/16 05:00 Jasmina Rods Not Reportable 10/10/16 05:00 Platelet Estimate Consistent w auto 10/10/16 05:00 Clumped Platelets Not Reportable 10/10/16 05:00 Plt Clumps, EDTA Not Reportable 10/10/16 05:00 Large Platelets Not Reportable 10/10/16 05:00 Giant Platelets Not Reportable 10/10/16 05:00 Platelet Satelliting Not Reportable 10/10/16 05:00 Plt Morphology Comment Not Reportable 10/10/16 05:00 RBC Morphology Not Reportable 10/10/16 05:00 Dimorphic RBCs Not Reportable 10/10/16 05:00 Polychromasia Rare 10/10/16 05:00 Hypochromasia 1+ 10/10/16 05:00 Poikilocytosis Not Reportable 10/10/16 05:00 Anisocytosis 1+ 10/10/16 05:00 Microcytosis Not Reportable 10/10/16 05:00 Macrocytosis 1+ 10/10/16 05:00 Spherocytes Not Reportable 10/10/16 05:00 Pappenheimer Bodies Not Reportable 10/10/16 05:00 Sickle Cells Not Reportable 10/10/16 05:00 Target Cells Not Reportable 10/10/16 05:00 Tear Drop Cells Not Reportable 10/10/16 05:00 Ovalocytes Not Reportable 10/10/16 05:00 Stomatocytes Few 10/06/16 03:50 Helmet Cells Not Reportable 10/10/16 05:00 [place] Bodies Not Reportable 10/10/16 05:00 Snow Rings Not Reportable 10/10/16 05:00 [place] Cells Not Reportable 10/10/16 05:00 Bite Cells Not Reportable 10/10/16 05:00 Crenated Cell Not Reportable 10/10/16 05:00 Elliptocytes Not Reportable 10/10/16 05:00 Acanthocytes (Spur) Not Reportable 10/10/16 05:00 Rouleaux Not Reportable 10/10/16 05:00 Hemoglobin C Crystals Not Reportable 10/10/16 05:00 Schistocytes Not Reportable 10/10/16 05:00 Malaria parasites Not Reportable 10/10/16 05:00 ESR > 140.0 mm/Hr (0-20) 09/08/16 11:48 Jun Bodies Not Reportable 10/10/16 05:00 Hem Pathologist Commnt No 10/10/16 05:00 PT 19.0 Sec. (12.2-14.9) H 10/09/16 03:45 INR 1.51 (0.87-1.13) H 10/09/16 03:45 APTT 33.0 Sec. (24.2-36.6) 10/09/16 03:45 Thrombin Time 16.8 Sec. (15.1-19.6) 09/03/16 00:10 Fibrinogen 750 mg/dl (211-480) H 09/08/16 11:48 Lupus Anticoagulant see below 09/12/16 09:59 LA PTT Baseline See scanned report 09/12/16 09:59 dRVVT Confirm Interp Positive (Negative) H 09/12/16 09:59 dRVVT Screen 50:50 See scanned report 09/12/16 09:59 dRVVT Mix Interpret See scanned report 09/12/16 09:59 Protein C Antigen 122 % (70-140) 09/08/16 15:35 Free Protein S 97 % normal (50-147) 09/08/16 15:35 Total Protein S 109 % (70-140) 09/08/16 15:35 Antithrombin III Ag 100 % (80-120) 09/08/16 15:35 Heparin Anti-Xa, Unfract Negative (Negative) 09/29/16 13:35 Factor V Activity 182 % (65-150) H 09/08/16 15:35 POC ABG pH 7.437 (7.35-7.45) 10/08/16 12:49 POC ABG pCO2 28.2 (35-45) L 10/08/16 12:49 POC ABG pO2 111 (80-105) H 10/08/16 12:49 POC ABG HCO3 19.0 10/08/16 12:49 POC ABG Total CO2 20 10/08/16 12:49 POC ABG O2 Sat 99 10/08/16 12:49 POC ABG Base Excess -5 10/08/16 12:49 FiO2 28 % 10/08/16 12:49 Sodium 137 mmol/L (137-145) 10/11/16 04:15 Potassium 4.3 mmol/L (3.6-5.0) D 10/11/16 04:15 Chloride 96.4 mmol/L (98-107) L 10/11/16 04:15 Carbon Dioxide 21 mmol/L (22-30) L 10/11/16 04:15 Anion Gap 24 mmol/L 10/11/16 04:15 BUN 57 mg/dL (7-17) H 10/11/16 04:15 Creatinine 2.1 mg/dL (0.7-1.2) H 10/11/16 04:15 Estimated GFR 31 ml/min 10/11/16 04:15 BUN/Creatinine Ratio 27.14 % 10/11/16 04:15 Glucose 151 mg/dL (65-100) H 10/11/16 04:15 POC Glucose 167 (70-105) H 10/11/16 05:30 Osmolality 351 Mosm/kg 09/16/16 11:47 Lactic Acid 4.50 mmol/L (0.7-2.0) H* 09/28/16 07:25 Calcium 8.3 mg/dL (8.4-10.2) L 10/11/16 04:15 Phosphorus 3.40 mg/dL (2.5-4.5) D 10/11/16 04:15 Magnesium 1.90 mg/dL (1.7-2.3) 10/11/16 04:15 Total Bilirubin 0.40 mg/dL (0.1-1.2) 10/10/16 05:00 Direct Bilirubin 0.3 mg/dL (0-0.2) H 10/10/16 05:00 Indirect Bilirubin 0.1 mg/dL 10/10/16 05:00 AST 21 units/L (5-40) 10/10/16 05:00 ALT < 5 units/L (7-56) L 10/10/16 05:00 Alkaline Phosphatase 319 units/L (35-129) H 10/10/16 05:00 Ammonia 27.0 umol/L (25-60) 09/07/16 08:37 Total Creatine Kinase 121 units/L (30-135) 09/29/16 20:12 CK-MB (CK-2) < 1.0 ng/mL (0.0-4.0) 09/29/16 20:12 CK-MB (CK-2) Rel Index 0.8 (0-4) 09/29/16 20:12 Troponin T 0.204 ng/mL (0.00-0.029) H* 09/29/16 20:12 C-Reactive Protein 19.40 mg/dL (0.00-1.30) H 10/07/16 10:00 Total Protein 5.1 g/dL (6.3-8.2) L 10/10/16 05:00 Albumin 1.0 g/dL (3.9-5) L 10/10/16 05:00 Albumin/Globulin Ratio 0.2 % 10/10/16 05:00 Triglycerides 137 mg/dL (2-149) 09/29/16 20:12 Cholesterol 31 mg/dL (50-199) L 09/29/16 20:12 LDL Cholesterol Direct 4 mg/dL (50-130) L 09/29/16 20:12 HDL Cholesterol 3 mg/dL (40-59) L 09/29/16 20:12 Cholesterol/HDL Ratio 10.33 % 09/29/16 20:12 Angiotensin Convert Enz See scanned report 09/08/16 11:48 Serotonin Release Assay See scanned report 09/29/16 13:35 TSH 1.010 mlU/mL (0.270-4.200) 09/07/16 08:37 HCG, Qual Negative (Negative) 09/03/16 00:10 Urine Color [place] (Yellow) 10/07/16 18:30 Urine Turbidity Turbid (Clear) 10/07/16 18:30 Urine pH 7.0 (5.0-7.0) 10/07/16 18:30 Ur Specific [place] 1.012 (1.003-1.030) 10/07/16 18:30 Urine Protein 100 mg/dl mg/dL (Negative) 10/07/16 18:30 Urine Glucose (UA) Neg mg/dL (Negative) 10/07/16 18:30 Urine Ketones Neg mg/dL (Negative) 10/07/16 18:30 Urine Blood Lg (Negative) 10/07/16 18:30 Urine Nitrite Neg (Negative) 10/07/16 18:30 Urine Bilirubin Neg (Negative) 10/07/16 18:30 Urine Urobilinogen < 2.0 mg/dL (<2.0) 10/07/16 18:30 Ur Leukocyte Esterase Lg (Negative) 10/07/16 18:30 Urine WBC (Auto) > 182.0 /HPF (0.0-6.0) H 10/07/16 18:30 Urine RBC (Auto) > 182.0 /HPF (0.0-6.0) 10/07/16 18:30 U Epithel Cells (Auto) 1.0 /HPF (0-13.0) 10/07/16 18:30 Urine Bacteria (Auto) 3+ /HPF (Negative) 10/07/16 18:30 Urine WBC Clumps 2+ /HPF 09/07/16 02:47 Hyaline Casts 4 /LPF 09/07/16 02:47 Urine Mucus Few /HPF 10/07/16 18:30 Urine Yeast (Budding) 3+ /HPF 10/07/16 18:30 Urine Eosinophils None seen (None Seen) 09/07/16 16:00 Urine Total Volume 1350 09/21/16 12:00 Urine Creatinine 54.8 mg/dL (0.1-20.0) H 09/21/16 12:00 Height (in) 67.0 inches 09/21/16 12:00 Weight (lb) 92.0 lbs 09/21/16 12:00 Creatinine Clearance 15 09/21/16 12:00 Urine Sodium 36 mEq/L 09/16/16 19:19 Urine Total Protein 16 mg/dL (5-11.8) H 09/16/16 19:19 Vancomycin Trough 2.3 ug/mL (5.0-20.0) L 09/21/16 13:00 Random Vancomycin 2.3 ug/mL (0-40.0) 09/09/16 03:00 Urine Opiates Screen Presumptive negative 09/03/16 15:11 Urine Methadone Screen Presumptive positive 09/03/16 15:11 Ur Barbiturates Screen Presumptive positive 09/03/16 15:11 Ur Phencyclidine Scrn Presumptive negative 09/03/16 15:11 Ur Amphetamines Screen Presumptive negative 09/03/16 15:11 U Benzodiazepines Scrn Presumptive negative 09/03/16 15:11 Urine Cocaine Screen Presumptive negative 09/03/16 15:11 U Marijuana (THC) Screen Presumptive positive 09/03/16 15:11 Drugs of Abuse Note Disclamer 09/03/16 15:11 Rheumatoid Factor 24 IU/ml (0-13) H 09/08/16 11:48 SAHIL Screen Negative (Negative) 09/07/16 09:20 Proteinase 3 (PR3) Ab <1.0 AI (<1.0) 09/07/16 09:20 Myeloperoxidase Ab <1.0 AI (<1.0) 09/07/16 09:20 Sjogren's Antibody <1.0 AI (<1.0) 09/08/16 15:35 Scl-70 Scleroderma Ab <1.0 AI (<1.0) 09/08/16 15:35 Centromere B Antibody <1.0 AI (<1.0) 09/08/16 12:02 Heparin-induced Plt Ab Negative (Negative) 09/29/16 13:35 UF Heparin High Dose 11 % Release 09/29/16 13:35 SUDHIR UFH Low Dose 0.1 6 % Release 09/29/16 13:35 SUDHIR UFH Low Dose 0.5 8 % Release 09/29/16 13:35 Cardiolipid IgG Ab <14 GPL (<=14) 09/12/16 09:59 Cardiolipid IgA Ab <11 APL (<=11) 09/12/16 09:59 Cardiolipid IgM Ab <12 MPL (<=12) 09/12/16 09:59 Complement C3 148 mg/dL (90-180) 09/07/16 09:20 Complement C4 58 mg/dL (16-47) H 09/07/16 09:20 RPR Nonreactive (Nonreactive) 09/08/16 11:48 Hepatitis A IgM Ab Non-reactive (NonReactive) 09/24/16 14:40 Hep Bs Antigen Non-reactive (Negative) 09/24/16 14:40 Hep B Core IgM Ab Non-reactive (NonReactive) 09/24/16 14:40 Hepatitis C Antibody Non-reactive (NonReactive) 09/24/16 14:40 HIV 1&2 Antibody Rapid Non react (Non React) 09/08/16 11:48 HIV P24 Antigen Non react (Non React) 09/08/16 11:48 Blood Type A POSITIVE 10/09/16 07:20 Antibody Screen Negative 10/09/16 07:20 DELORIS Antibody Screen Negative 09/25/16 10:30 Crossmatch See Detail 10/09/16 07:20
--- NOTE | 2016-10-11 09:55 | Progress Note ---
Subjective Principal diagnosis: hematochezia Interval history: Patient was evaluated today for follow-up on multiple renal related issues No acute distress/remains ventilator dependent Currently on TPN restarted on dialysis Events of 24 hours were noted Vital labs intake and output medications were reviewed Current medications: Reviewed Social history:Reviewed Family history: Reviewed HEENT: No uremic order oral mucosa moist Neck: Supple without any thyromegaly mass or JVD Chest: Bilateral crackles posteriorly and to the side Heart: Regular rate and rhythm S1 and S2 heard no S3-S4 Abdomen: Soft nontender no voluntary guarding rigidity or rebound Extremity: Edema approximately 1+ generalized Psychiatry: No agitation and aggression noted Assessment and plan Acute on chronic renal failure; continue to monitor renal function for now, avoid any nephrotoxic medication stable today from renal standpoint/likely will need dialysis tomorrow morning Hyperkalemia better TPN volume needs to be reduced to 1200 per day Daily labs including CBC basic metabolic panel periodically phosphorous and magnesium level Plan has been discussed with patient's family at length yesterday Made aware about patient's poor/guarded prognosis Need to continue with renal replacement therapy at this time Objective - Vital Signs Vital signs: Vital Signs - 12hr 10/10/16 10/10/16 10/10/16 22:00 22:07 23:00 Temperature Pulse Rate 94 H 91 H 94 H Pulse Rate [ From Monitor] Respiratory 24 23 Rate Respiratory Rate [ Generalized] Blood Pressure 152/74 152/75 O2 Sat by Pulse 100 100 Oximetry O2 Sat by Pulse 100 Oximetry [ Assessment] 10/11/16 10/11/16 10/11/16 00:00 01:00 02:00 Temperature 98.3 F Pulse Rate 99 H 101 H Pulse Rate [ 99 H From Monitor] Respiratory 24 24 Rate Respiratory Rate [ Generalized] Blood Pressure 180/94 181/91 170/100 O2 Sat by Pulse 100 99 98 Oximetry O2 Sat by Pulse Oximetry [ Assessment] 10/11/16 10/11/16 10/11/16 03:00 04:00 04:49 Temperature 98.3 F Pulse Rate 101 H 89 Pulse Rate [ 103 H From Monitor] Respiratory 24 29 H Rate Respiratory 28 H Rate [ Generalized] Blood Pressure 140/79 137/83 O2 Sat by Pulse 100 100 Oximetry O2 Sat by Pulse Oximetry [ Assessment] 10/11/16 10/11/16 10/11/16 05:00 06:00 07:00 Temperature Pulse Rate 106 H 101 H 102 H Pulse Rate [ From Monitor] Respiratory 27 H 29 H 29 H Rate Respiratory Rate [ Generalized] Blood Pressure 146/81 130/72 146/79 O2 Sat by Pulse 100 99 99 Oximetry O2 Sat by Pulse Oximetry [ Assessment] 10/11/16 10/11/16 10/11/16 08:00 09:00 09:36 Temperature 99.0 F Pulse Rate 103 H 103 H 106 H Pulse Rate [ From Monitor] Respiratory 27 H 30 H 24 Rate Respiratory Rate [ Generalized] Blood Pressure 141/72 143/77 147/82 O2 Sat by Pulse 99 99 98 Oximetry O2 Sat by Pulse Oximetry [ Assessment] - Lab 10/11/16 04:15 10/11/16 04:15 Most recent lab results Calcium 8.3 mg/dL (8.4-10.2) L 10/11/16 04:15 Phosphorus 3.40 mg/dL (2.5-4.5) D 10/11/16 04:15 Magnesium 1.90 mg/dL (1.7-2.3) 10/11/16 04:15 Urine Creatinine 54.8 mg/dL (0.1-20.0) H 09/21/16 12:00 Urine Sodium 36 mEq/L 09/16/16 19:19 Urine Total Protein 16 mg/dL (5-11.8) H 09/16/16 19:19
--- NOTE | 2016-10-11 09:59 | Progress Note ---
Assessment and Plan Acute hypoxic respiratory failure on mechanical ventilation s/p trach and PEG Acute left MCA CVA echocardiogram demonstrates at least moderate LVH but a normal LV systolic function, EF 50-55%. no thrombus visualized on transthoracic echocardiogram. Dislodged PEG tube s/p repair of gastric perforation with wedge gastrectomy Hypertension was hypotensive requiring pressor support Acute on chronic renal failure requiring dialysis Fungemia Diabetes mellitus Anemia requiring transfusion of PRBCs Thrombocytopenia Hyponatremia Paroxysmal Afib s/p failed cardioversion on 09/25 on amiodarone drip considered not a candidate for anticoagulation due to severe anemia and thrombocytopenia. Recommendations: Continue IV amiodarone drip until able to resume meds per PEG tube. Conservative cardiac management. Subjective Date of service: 10/11/16 Principal diagnosis: hematochezia Interval history: No cardiac events overnight. Objective Vital Signs Temp Pulse Pulse Resp Resp BP Pulse Ox 10/11/16 09:36 106 H 24 147/82 98 10/11/16 09:00 103 H 30 H 143/77 99 10/11/16 08:00 99.0 F 103 H 27 H 141/72 99 10/11/16 07:00 102 H 29 H 146/79 99 10/11/16 06:00 101 H 29 H 130/72 99 10/11/16 05:00 106 H 27 H 146/81 100 10/11/16 04:49 28 H 10/11/16 04:00 98.3 F 89 103 H 29 H 137/83 100 10/11/16 03:00 101 H 24 140/79 100 10/11/16 02:00 170/100 98 10/11/16 01:00 101 H 24 181/91 99 10/11/16 00:00 98.3 F 99 H 99 H 24 180/94 100 10/10/16 23:00 94 H 23 152/75 100 10/10/16 22:07 91 H 10/10/16 22:00 94 H 24 152/74 100 10/10/16 21:00 95 H 22 175/72 100 10/10/16 20:00 97.8 F 93 H 20 153/73 100 10/10/16 19:01 93 H 29 H 125/78 100 10/10/16 18:41 86 17 154/79 100 10/10/16 18:24 98.5 F 91 H 12 147/75 10/10/16 18:17 88 133/63 10/10/16 18:01 85 20 137/34 99 10/10/16 18:00 85 137/34 10/10/16 17:45 85 139/40 10/10/16 17:30 83 134/34 10/10/16 17:15 83 138/40 10/10/16 17:00 83 25 H 135/46 99 10/10/16 16:45 83 131/39 10/10/16 16:30 83 144/50 10/10/16 16:21 82 17 131/52 100 10/10/16 16:15 98.2 F 83 12 131/52 100 10/10/16 16:11 83 15 122/43 100 10/10/16 16:00 98.6 F 84 78 22 122/43 100 10/10/16 15:51 84 22 153/66 100 10/10/16 15:47 10/10/16 15:45 85 153/66 10/10/16 15:41 89 22 144/63 100 10/10/16 15:31 86 19 144/63 100 10/10/16 15:30 85 144/63 10/10/16 15:21 80 19 118/41 100 10/10/16 15:15 84 118/41 10/10/16 15:11 78 20 110/35 100 10/10/16 15:00 73 13 110/35 100 10/10/16 14:51 70 13 102/24 100 10/10/16 14:45 71 102/24 10/10/16 14:41 75 16 184/64 100 10/10/16 14:30 84 17 184/64 100 10/10/16 14:25 98.9 F 81 12 184/64 10/10/16 14:21 80 22 114/41 100 10/10/16 14:11 74 15 114/41 100 10/10/16 14:00 71 17 114/41 100 10/10/16 13:51 71 17 131/53 100 10/10/16 13:45 84 120/47 100 10/10/16 13:41 84 19 120/47 100 10/10/16 13:30 98.6 F 76 21 120/47 100 10/10/16 13:21 74 16 113/45 100 10/10/16 13:11 74 17 123/51 100 10/10/16 13:00 75 18 123/51 100 10/10/16 12:55 98.6 F 75 19 148/68 100 10/10/16 12:51 82 21 148/68 100 10/10/16 12:41 76 21 134/56 100 10/10/16 12:30 79 21 134/56 100 10/10/16 12:25 98.6 F 75 18 129/60 100 10/10/16 12:04 77 21 119/53 100 10/10/16 12:00 80 78 22 119/53 100 10/10/16 11:55 98.6 F 79 22 120/41 100 10/10/16 11:47 98.9 F 10/10/16 11:40 98.9 F 85 28 H 170/44 100 10/10/16 11:15 98.9 F 85 28 H 150/81 100 10/10/16 11:00 77 23 150/81 100 10/10/16 10:00 81 23 147/76 100 Pulse Ox Pulse Ox 10/11/16 09:36 10/11/16 09:00 10/11/16 08:00 10/11/16 07:00 10/11/16 06:00 10/11/16 05:00 10/11/16 04:49 10/11/16 04:00 10/11/16 03:00 10/11/16 02:00 10/11/16 01:00 10/11/16 00:00 10/10/16 23:00 100 10/10/16 22:07 10/10/16 22:00 10/10/16 21:00 10/10/16 20:00 10/10/16 19:01 10/10/16 18:41 10/10/16 18:24 10/10/16 18:17 10/10/16 18:01 10/10/16 18:00 10/10/16 17:45 10/10/16 17:30 10/10/16 17:15 10/10/16 17:00 10/10/16 16:45 10/10/16 16:30 10/10/16 16:21 10/10/16 16:15 10/10/16 16:11 10/10/16 16:00 10/10/16 15:51 10/10/16 15:47 100 08/21/17 15:45 10/10/16 15:41 10/10/16 15:31 10/10/16 15:30 10/10/16 15:21 10/10/16 15:15 10/10/16 15:11 10/10/16 15:00 10/10/16 14:51 10/10/16 14:45 10/10/16 14:41 10/10/16 14:30 10/10/16 14:25 100 10/10/16 14:21 10/10/16 14:11 10/10/16 14:00 10/10/16 13:51 10/10/16 13:45 10/10/16 13:41 10/10/16 13:30 10/10/16 13:21 10/10/16 13:11 10/10/16 13:00 10/10/16 12:55 10/10/16 12:51 10/10/16 12:41 10/10/16 12:30 10/10/16 12:25 10/10/16 12:04 10/10/16 12:00 10/10/16 11:55 10/10/16 11:47 10/10/16 11:40 10/10/16 11:15 10/10/16 11:00 10/10/16 10:00 - Physical Examination General: Other (intubated via trach) Cardiac: Positive: Reg Rate and Rhythm Abdomen: Positive: Soft, Active Bowel Sounds Extremities: Absent: edema - Labs and Meds CBC 10/11/16 Range/Units 04:15 WBC 28.3 H (4.5-11.0) K/mm3 RBC 3.12 L (3.65-5.03) M/mm3 Hgb 9.3 L (10.1-14.3) gm/dl Hct 28.7 L D (30.3-42.9) % Plt Count 128 L (140-440) K/mm3 Comprehensive Metabolic Panel 10/11/16 Range/Units 04:15 Sodium 137 (137-145) mmol/L Potassium 4.3 D (3.6-5.0) mmol/L Chloride 96.4 L (98-107) mmol/L Carbon Dioxide 21 L (22-30) mmol/L BUN 57 H (7-17) mg/dL Creatinine 2.1 H (0.7-1.2) mg/dL Glucose 151 H (65-100) mg/dL Calcium 8.3 L (8.4-10.2) mg/dL - Imaging and Cardiology EKG: image reviewed - Allied health notes Allied health notes reviewed: RT
--- NOTE | 2016-10-11 11:20 | Progress Note ---
Assessment and Plan Assessment: 1) Recurrent Sepsis: Improving, fever resolved. Noted leukocytosis today at 28K likely reactive due to severe anemia. -Current sepsis etiology - peritonitis from gastric perforation +/- UTI. -Initial sepsis etiology - presumed aspiration pneumonia, and another septic episode on 09/23 from Candidemia. -CRP 19 on 10/08 2) Peritonitis: from gastric perforation from dislodged PEG with significant ascites -S/P exlap, repair of gastric perforation with wedge gastrectomy, abdominal washout, drain placement on 10/05. 3) Candidemia: -Blood cultures positive for Silvia albicans on 09/23 -Blood cultures positive on 09/25 -Blood cutlures negative on 09/30 -PICC line changed on 10/03 -Source ? gastric perf (PEG placed on 09/20) +/- TPN +/- central lines -TTE 10/07 no vegetations -PICC exchanged on 10/03 4) CA-UTI s/p gutierrez exchanged 5) Diarrhea - ? etiology ? antibiotic-induced, not better 6) Initial presumed aspiration pneumonia 7) Presumed UTI: urine cx 09/23 multiple species 8) Respiratory failure s/p trach 9) Recent CVA-left MCA CVA 10) Uncontrolled HTN 11) Acute on CKD 12) Extensive back skin peeling ? burn from gastric secretions. Doubt allergic reaction 13) Severe anemia; ? from GI bleed Plan: -f/u procalcitonin -recheck C-reactive protein (CRP) today -continue zosyn day 5 of 14 to cover peritonitis and micafungin day 12 of 14 to cover Silvia albicans (since negative blood cx) Thank you Dr Ribeiro for your consultation, will follow up with you. Pauline Carias MD Infectious Diseases Specialist [facility] ([facility] M [phone] O [phone] Subjective Principal diagnosis: hematochezia Interval history: Remains somnolent, open eyes upon stimuli, not following commands, on the vent via trach, on CPAP fio2 30%, no pressors. No fever last 24h. +oliguric. + diarrhea via rectal tube decreased -Small green jelly-like stool Microbiology: Blood cultures: 09/13 neg 09/23 Silvia albicans 09/25 Silvia 8/ neg 10/07 NGTD Urine cultures: 09/10 neg 09/13 neg 09/23 10-100K mixed species 10/07 pending Respiratory cultures: 09/07 neg 09/13 neg 09/23 neg Wound cultures: Stool cultures: Current Antimicrobials: zosyn 10/07 Micafungin 09/27 Previous Antimicrobials: Zosyn Vancomycin PO 10/01 Metronidazole 09/25 Objective - Exam Narrative Exam: General appearance: somnolent non verbal, on the vent via trach no following commands Eyes: anicteric sclera, moist conjunctivae; PERRLA HENT: Atraumatic; oropharynx limited; Normal external ears. +NGT with greenish secretion Neck: +trach in place; supple, no thyromegaly or lymphadenopathy Lungs: coarse BS bilateral CV: tachycardic Abdomen: Soft, non-tender, +drain with purulent drainage, + diarrhea via rectal tube. +old PEG site no drainage. Extremities: +peripheral edema no extremity lymphadenopathy Skin: Julian sub mammary ulcers, extensive skin peeling on back Psych: Anxious. Neuro: somnolent non verbal on the vent. Lines: left arm PICC placed on 10/03 - Constitutional Vitals: Vital Signs Temp Pulse Resp BP Pulse Ox 99.0 F 101 H 31 H 132/76 98 10/11/16 08:00 10/11/16 10:00 10/11/16 10:00 10/11/16 10:00 10/11/16 10:00 Temperature -Last 24 Hours Temperature 99.0 F Temperature 98.3 F Temperature 98.3 F Temperature 97.8 F Temperature 98.5 F Temperature 98.2 F Temperature 98.6 F Temperature 98.6 F Temperature 98.9 F Temperature 98.6 F Temperature 98.6 F Temperature 98.6 F Temperature 98.6 F Temperature 98.9 F Temperature 98.9 F - Labs CBC & Chem 7: 10/11/16 04:15 10/11/16 04:15 Labs: Abnormal lab results 09/25/16 10/09/16 10/10/16 Range/Units 10:30 07:20 11:19 WBC (4.5-11.0) K/mm3 RBC (3.65-5.03) M/mm3 Hgb (10.1-14.3) gm/dl Hct (30.3-42.9) % RDW (13.2-15.2) % Plt Count (140-440) K/mm3 Chloride (98-107) mmol/L Carbon Dioxide (22-30) mmol/L BUN (7-17) mg/dL Creatinine (0.7-1.2) mg/dL Glucose (65-100) mg/dL POC Glucose 153 H (70-105) Calcium (8.4-10.2) mg/dL Crossmatch See Detail See Detail 10/10/16 10/10/16 10/11/16 Range/Units 17:50 23:30 04:15 WBC (4.5-11.0) K/mm3 RBC (3.65-5.03) M/mm3 Hgb (10.1-14.3) gm/dl Hct (30.3-42.9) % RDW (13.2-15.2) % Plt Count (140-440) K/mm3 Chloride 96.4 L (98-107) mmol/L Carbon Dioxide 21 L (22-30) mmol/L BUN 57 H (7-17) mg/dL Creatinine 2.1 H (0.7-1.2) mg/dL Glucose 151 H (65-100) mg/dL POC Glucose 146 H 141 H (70-105) Calcium 8.3 L (8.4-10.2) mg/dL Crossmatch 10/11/16 10/11/16 Range/Units 04:15 05:30 WBC 28.3 H (4.5-11.0) K/mm3 RBC 3.12 L (3.65-5.03) M/mm3 Hgb 9.3 L (10.1-14.3) gm/dl Hct 28.7 L D (30.3-42.9) % RDW 17.7 H (13.2-15.2) % Plt Count 128 L (140-440) K/mm3 Chloride (98-107) mmol/L Carbon Dioxide (22-30) mmol/L BUN (7-17) mg/dL Creatinine (0.7-1.2) mg/dL Glucose (65-100) mg/dL POC Glucose 167 H (70-105) Calcium (8.4-10.2) mg/dL Crossmatch
[2016-10-11] MEDS: PROTONIX IV SCH (11:25)
--- NOTE | 2016-10-11 14:43 | Gastroenterology Progress Note ---
Assessment and Plan Assessment and Plan 1.hematochezia -HGB stable s/p PRBC -continue to monitor H&H and transfuse as needed -vital signs stable, afebrile. -no active signs of bleeding today, however nursing reports BRB per diaper last PM, noted small green BM per notes, today. -etiology of source of bleeding unclear- possible vaginal? -NPO with NG tube to LIS with dark green output noted. -given pt's current condition will continue to monitor and treat conservatively -recommend obtaining a bleeding scan if further episodes of bleeding develop , none reported today -fecal WBC negative, C diff negative. -will follow Subjective Date of service: 10/11/16 Principal diagnosis: hematochezia Interval history: Patient remains intubated, eyes are open but does not follow commands. Objective - Constitutional Vitals: Temp Pulse Resp BP Pulse Ox 99.3 F 108 H 27 H 163/100 99 10/11/16 12:00 10/11/16 13:56 10/11/16 13:56 10/11/16 13:56 10/11/16 13:56 General appearance: mild distress, other (intubated) - Respiratory Respiratory: bilateral: diminished - Cardiovascular Rhythm: other (tachy) - Gastrointestinal General gastrointestinal: Present: soft, hypoactive bowel sounds, other ( dressing tomid abdomen/ right side JUAN drain.) - Integumentary Integumentary: Present: warm, dry, clammy - Labs CBC & Chem 7: 10/11/16 04:15 10/11/16 04:15 Labs: Laboratory Results - last 24 hr 10/09/16 10/10/16 10/10/16 07:20 17:50 23:30 WBC RBC Hgb Hct MCV MCH MCHC RDW Plt Count Sodium Potassium Chloride Carbon Dioxide Anion Gap BUN Creatinine Estimated GFR BUN/Creatinine Ratio Glucose POC Glucose 146 H 141 H Calcium Phosphorus Magnesium C-Reactive Protein Blood Type A POSITIVE Antibody Screen Negative Crossmatch See Detail 10/11/16 10/11/16 10/11/16 04:15 04:15 04:15 WBC 28.3 H RBC 3.12 L Hgb 9.3 L Hct 28.7 L D MCV 92 MCH 30 MCHC 33 RDW 17.7 H Plt Count 128 L Sodium 137 Potassium 4.3 D Chloride 96.4 L Carbon Dioxide 21 L Anion Gap 24 BUN 57 H Creatinine 2.1 H Estimated GFR 31 BUN/Creatinine Ratio 27.14 Glucose 151 H POC Glucose Calcium 8.3 L Phosphorus 3.40 D Magnesium 1.90 C-Reactive Protein 15.80 H Blood Type Antibody Screen Crossmatch 10/11/16 05:30 WBC RBC Hgb Hct MCV MCH MCHC RDW Plt Count Sodium Potassium Chloride Carbon Dioxide Anion Gap BUN Creatinine Estimated GFR BUN/Creatinine Ratio Glucose POC Glucose 167 H Calcium Phosphorus Magnesium C-Reactive Protein Blood Type Antibody Screen Crossmatch
--- NOTE | 2016-10-11 15:43 | Progress Note ---
Assessment and Plan - Patient Problems (1) Acute respiratory failure with hypoxia Current Visit: Yes Status: Acute Plan to address problem: Continue with mechanical ventilatory support Lung protective strategies -VAP bundle, HOB >40 - SCDs for VTE prophylaxis - Stress ulcer prophylaxis -Bronchodilators- h/o asthma -[place] catheter in this critically ill patient - TPN, accucheck with glycemic control - Agitation management/analgesia - daily SATs and SBTs as tolerated - ABGs and CXR prn -Trach care per RT (2) Acute CVA (cerebrovascular accident) Current Visit: Yes Status: Acute Plan to address problem: CTScan -subacute MCA territory infarct Secondary stroke prophylaxis Neuroprotective measures Aspiration precautions (3) Chronic renal insufficiency Current Visit: Yes Status: Acute Qualifiers: Chronic kidney disease stage: C Plan to address problem: UF/HD per renal service Renal following (4) Uncontrolled hypertension Current Visit: Yes Status: Acute Plan to address problem: Blood pressure better controlled. Episodes of tachycardia Monitor closely and adjust anti-hypertensive medications (5) Leukocytosis (leucocytosis) Current Visit: Yes Status: Acute Qualifiers: Leukocytosis type: leukemoid reaction Qualified Code(s): D72.823 - Leukemoid reaction Plan to address problem: On antibiotics and antifungal per ID service. Discussed with ID attending re my concerns with her leukocytosis. Monitor for now while on antibiotics and antifungal, abdominal imaging today. (6) Dislodged gastrostomy tube Current Visit: Yes Status: Acute Plan to address problem: With bowel perforation. Purulent drainage from JUAN drain. Remains NPO and on TPN for nutritional support. GI/Surgery following (7) Fungemia Current Visit: Yes Status: Acute Plan to address problem: Anti-fungal therapy per ID service. Subjective Date of service: 10/11/16 Principal diagnosis: hematochezia Interval history: Seen and examined. Vitals, labs, medications, chart reviewed. On mechanical ventilatory support PSV 10/5 FIO2 30% with Vt 300ml. On TPN, with purulent drainage from the JUAN drain. No fevers.Currently no further surgical interventions On going leukocytosis. EEG ordered by Neurology. discussed with RT and RN Objective - Exam Narrative Exam: Gen appearance: Trach to vent, not in acute distress, no patient-ventilator dyssynchrony HEENT: Atraumatic, normocephalic Neck: Tracheostomy Lungs: Clear to auscultation bilaterally, no crackles or wheezes Heart :S1 and S2 irregular, no murmurs, rubs or gallop Abdomen: Soft, surgical drain (draining purulent material), dressing over upper abdomen, bowel sounds present,rectal tube Extremities : bilateral edema, upper and lower extremities Neuro: Does not follow commands, awake, alert, Vital Signs - 12hr 10/11/16 10/11/16 10/11/16 04:00 04:49 05:00 Temperature 98.3 F Pulse Rate 89 106 H Pulse Rate [ 103 H From Monitor] Respiratory 29 H 27 H Rate Respiratory 28 H Rate [ Generalized] Blood Pressure 137/83 146/81 O2 Sat by Pulse 100 100 Oximetry O2 Sat by Pulse Oximetry [ Assessment] 10/11/16 10/11/16 10/11/16 06:00 07:00 08:00 Temperature 99.0 F Pulse Rate 101 H 102 H 103 H Pulse Rate [ 113 H From Monitor] Respiratory 29 H 29 H 26 H Rate Respiratory Rate [ Generalized] Blood Pressure 130/72 146/79 141/72 O2 Sat by Pulse 99 99 98 Oximetry O2 Sat by Pulse 99 Oximetry [ Assessment] 10/11/16 10/11/16 10/11/16 09:00 09:36 10:00 Temperature Pulse Rate 103 H 106 H 102 H Pulse Rate [ From Monitor] Respiratory 30 H 24 31 H Rate Respiratory 30 H Rate [ Generalized] Blood Pressure 143/77 147/82 132/76 O2 Sat by Pulse 99 98 98 Oximetry O2 Sat by Pulse Oximetry [ Assessment] 10/11/16 10/11/16 10/11/16 11:00 12:00 13:00 Temperature 99.3 F Pulse Rate 99 H 102 H 108 H Pulse Rate [ From Monitor] Respiratory 30 H 29 H 28 H Rate Respiratory Rate [ Generalized] Blood Pressure 124/64 130/70 161/91 O2 Sat by Pulse 99 99 98 Oximetry O2 Sat by Pulse Oximetry [ Assessment] 10/11/16 10/11/16 13:56 14:00 Temperature Pulse Rate 108 H 99 H Pulse Rate [ From Monitor] Respiratory 27 H 30 H Rate Respiratory Rate [ Generalized] Blood Pressure 163/100 136/77 O2 Sat by Pulse 99 99 Oximetry O2 Sat by Pulse Oximetry [ Assessment] Constitutional: no acute distress, other (grimaces with moving) Eyes: non-icteric, other (tracheostomy tube in midline of neck) ENT: oropharynx moist Neck: supple, no lymphadenopathy Effort: mildly labored Ascultation: Bilateral: clear, diminished breath sounds (bases), rales, rhonchi (bases) Cardiovascular: regular rate and rhythm Gastrointestinal: hypoactive bowel sounds, soft, non-tender, non-distended Integumentary: other (erythema to skin of back with some healing areas; no obvious TEN's features) Extremities: no cyanosis, no edema, pulses normal, no ischemia or petechiae Neurologic: pupils equal and round, other (sedated) Psychiatric: other (unable to assess) CBC and BMP: 10/16/16 06:25 10/16/16 06:25 ABG, PT/INR, D-dimer: ABG POC ABG pH 7.437 (7.35-7.45) 10/08/16 12:49 POC ABG pCO2 28.2 (35-45) L 10/08/16 12:49 POC ABG pO2 111 (80-105) H 10/08/16 12:49 POC ABG HCO3 19.0 10/08/16 12:49 POC ABG Total CO2 20 10/08/16 12:49 POC ABG O2 Sat 99 10/08/16 12:49 PT/INR, D-dimer PT 19.0 Sec. (12.2-14.9) H 10/09/16 03:45 INR 1.51 (0.87-1.13) H 10/09/16 03:45 Abnormal lab findings: Abnormal Labs 09/03/16 09/03/16 09/03/16 12:12 15:07 16:20 WBC RBC Hgb Hct MCV MCH MCHC RDW Plt Count Lymph % (Auto) [place] % (Auto) Lymph # [place] # Seg Neutrophils % Seg Neuts % (Manual) Lymphocytes % (Manual) Monocytes % (Manual) Eosinophils % (Manual) Basophils % (Manual) Nucleated RBC % Seg Neutrophils # Seg Neutrophils # Man Lymphocytes # (Manual) Monocytes # (Manual) Eosinophils # (Manual) PT INR Fibrinogen dRVVT Confirm Interp Factor V Activity POC ABG pH 7.452 H POC ABG pCO2 POC ABG pO2 Sodium Potassium Chloride Carbon Dioxide BUN Creatinine Glucose POC Glucose 178 H Lactic Acid Calcium Phosphorus 2.20 L Magnesium 1.60 L Direct Bilirubin ALT Alkaline Phosphatase Troponin T C-Reactive Protein Total Protein Albumin Triglycerides Cholesterol LDL Cholesterol Direct HDL Cholesterol Urine WBC (Auto) Urine Creatinine Urine Total Protein Vancomycin Trough Rheumatoid Factor Complement C4 Miscellaneous Test Crossmatch 09/03/16 09/03/16 09/03/16 17:57 17:58 23:50 WBC RBC Hgb Hct MCV MCH MCHC RDW Plt Count Lymph % (Auto) [place] % (Auto) Lymph # [place] # Seg Neutrophils % Seg Neuts % (Manual) Lymphocytes % (Manual) Monocytes % (Manual) Eosinophils % (Manual) Basophils % (Manual) Nucleated RBC % Seg Neutrophils # Seg Neutrophils # Man Lymphocytes # (Manual) Monocytes # (Manual) Eosinophils # (Manual) PT INR Fibrinogen dRVVT Confirm Interp Factor V Activity POC ABG pH POC ABG pCO2 POC ABG pO2 Sodium Potassium Chloride Carbon Dioxide BUN Creatinine Glucose POC Glucose 162 H 145 H Lactic Acid Calcium Phosphorus 2.30 L Magnesium Direct Bilirubin ALT Alkaline Phosphatase Troponin T C-Reactive Protein Total Protein Albumin Triglycerides Cholesterol LDL Cholesterol Direct HDL Cholesterol Urine WBC (Auto) Urine Creatinine Urine Total Protein Vancomycin Trough Rheumatoid Factor Complement C4 Miscellaneous Test Crossmatch 09/04/16 09/04/16 09/04/16 03:31 03:31 05:42 WBC RBC Hgb 9.7 L D Hct MCV 72 L MCH 23 L MCHC RDW 17.5 H Plt Count Lymph % (Auto) 11.1 L [place] % (Auto) Lymph # [place] # Seg Neutrophils % 84.3 H Seg Neuts % (Manual) Lymphocytes % (Manual) Monocytes % (Manual) Eosinophils % (Manual) Basophils % (Manual) Nucleated RBC % Seg Neutrophils # 8.9 H Seg Neutrophils # Man Lymphocytes # (Manual) Monocytes # (Manual) Eosinophils # (Manual) PT INR Fibrinogen dRVVT Confirm Interp Factor V Activity POC ABG pH POC ABG pCO2 POC ABG pO2 Sodium 135 L Potassium 2.9 L* Chloride 97.2 L Carbon Dioxide 19 L BUN Creatinine 1.7 H Glucose 170 H POC Glucose 152 H Lactic Acid Calcium Phosphorus Magnesium Direct Bilirubin ALT Alkaline Phosphatase Troponin T C-Reactive Protein Total Protein Albumin Triglycerides 160 H Cholesterol LDL Cholesterol Direct HDL Cholesterol 31 L Urine WBC (Auto) Urine Creatinine Urine Total Protein Vancomycin Trough Rheumatoid Factor Complement C4 Miscellaneous Test Crossmatch 09/04/16 09/04/16 09/04/16 11:34 17:46 23:29 WBC RBC Hgb Hct MCV MCH MCHC RDW Plt Count Lymph % (Auto) [place] % (Auto) Lymph # [place] # Seg Neutrophils % Seg Neuts % (Manual) Lymphocytes % (Manual) Monocytes % (Manual) Eosinophils % (Manual) Basophils % (Manual) Nucleated RBC % Seg Neutrophils # Seg Neutrophils # Man Lymphocytes # (Manual) Monocytes # (Manual) Eosinophils # (Manual) PT INR Fibrinogen dRVVT Confirm Interp Factor V Activity POC ABG pH POC ABG pCO2 POC ABG pO2 Sodium Potassium Chloride Carbon Dioxide BUN Creatinine Glucose POC Glucose 165 H 210 H 139 H Lactic Acid Calcium Phosphorus Magnesium Direct Bilirubin ALT Alkaline Phosphatase Troponin T C-Reactive Protein Total Protein Albumin Triglycerides Cholesterol LDL Cholesterol Direct HDL Cholesterol Urine WBC (Auto) Urine Creatinine Urine Total Protein Vancomycin Trough Rheumatoid Factor Complement C4 Miscellaneous Test Crossmatch 09/05/16 09/05/16 09/05/16 04:05 04:05 05:38 WBC RBC Hgb Hct MCV 76 L D MCH 23 L MCHC RDW 17.8 H Plt Count Lymph % (Auto) [place] % (Auto) Lymph # [place] # Seg Neutrophils % Seg Neuts % (Manual) Lymphocytes % (Manual) Monocytes % (Manual) Eosinophils % (Manual) Basophils % (Manual) Nucleated RBC % Seg Neutrophils # Seg Neutrophils # Man Lymphocytes # (Manual) Monocytes # (Manual) Eosinophils # (Manual) PT INR Fibrinogen dRVVT Confirm Interp Factor V Activity POC ABG pH POC ABG pCO2 POC ABG pO2 Sodium 134 L Potassium Chloride Carbon Dioxide 18 L BUN Creatinine 1.8 H Glucose 192 H POC Glucose 175 H Lactic Acid Calcium Phosphorus Magnesium Direct Bilirubin ALT Alkaline Phosphatase Troponin T C-Reactive Protein Total Protein Albumin Triglycerides Cholesterol LDL Cholesterol Direct HDL Cholesterol Urine WBC (Auto) Urine Creatinine Urine Total Protein Vancomycin Trough Rheumatoid Factor Complement C4 Miscellaneous Test Crossmatch 09/05/16 09/05/16 09/05/16 11:38 17:48 23:22 WBC RBC Hgb Hct MCV MCH MCHC RDW Plt Count Lymph % (Auto) [place] % (Auto) Lymph # [place] # Seg Neutrophils % Seg Neuts % (Manual) Lymphocytes % (Manual) Monocytes % (Manual) Eosinophils % (Manual) Basophils % (Manual) Nucleated RBC % Seg Neutrophils # Seg Neutrophils # Man Lymphocytes # (Manual) Monocytes # (Manual) Eosinophils # (Manual) PT INR Fibrinogen dRVVT Confirm Interp Factor V Activity POC ABG pH POC ABG pCO2 POC ABG pO2 Sodium Potassium Chloride Carbon Dioxide BUN Creatinine Glucose POC Glucose 164 H 186 H 195 H Lactic Acid Calcium Phosphorus Magnesium Direct Bilirubin ALT Alkaline Phosphatase Troponin T C-Reactive Protein Total Protein Albumin Triglycerides Cholesterol LDL Cholesterol Direct HDL Cholesterol Urine WBC (Auto) Urine Creatinine Urine Total Protein Vancomycin Trough Rheumatoid Factor Complement C4 Miscellaneous Test Crossmatch 09/06/16 09/06/16 09/06/16 04:12 05:59 07:32 WBC RBC Hgb Hct MCV MCH MCHC RDW Plt Count Lymph % (Auto) [place] % (Auto) Lymph # [place] # Seg Neutrophils % Seg Neuts % (Manual) Lymphocytes % (Manual) Monocytes % (Manual) Eosinophils % (Manual) Basophils % (Manual) Nucleated RBC % Seg Neutrophils # Seg Neutrophils # Man Lymphocytes # (Manual) Monocytes # (Manual) Eosinophils # (Manual) PT INR Fibrinogen dRVVT Confirm Interp Factor V Activity POC ABG pH 7.514 H POC ABG pCO2 29.1 L POC ABG pO2 72 L Sodium 133 L Potassium 3.4 L Chloride 94.9 L Carbon Dioxide 19 L BUN 30 H Creatinine 2.1 H Glucose 139 H POC Glucose 146 H Lactic Acid Calcium Phosphorus Magnesium Direct Bilirubin ALT Alkaline Phosphatase Troponin T C-Reactive Protein Total Protein Albumin Triglycerides Cholesterol LDL Cholesterol Direct HDL Cholesterol Urine WBC (Auto) Urine Creatinine Urine Total Protein Vancomycin Trough Rheumatoid Factor Complement C4 Miscellaneous Test Crossmatch 09/06/16 09/06/16 09/06/16 11:57 17:58 19:02 WBC RBC Hgb Hct MCV MCH MCHC RDW Plt Count Lymph % (Auto) [place] % (Auto) Lymph # [place] # Seg Neutrophils % Seg Neuts % (Manual) Lymphocytes % (Manual) Monocytes % (Manual) Eosinophils % (Manual) Basophils % (Manual) Nucleated RBC % Seg Neutrophils # Seg Neutrophils # Man Lymphocytes # (Manual) Monocytes # (Manual) Eosinophils # (Manual) PT INR Fibrinogen dRVVT Confirm Interp Factor V Activity POC ABG pH 7.465 H POC ABG pCO2 32.0 L POC ABG pO2 Sodium Potassium Chloride Carbon Dioxide BUN Creatinine Glucose POC Glucose 165 H 160 H Lactic Acid Calcium Phosphorus Magnesium Direct Bilirubin ALT Alkaline Phosphatase Troponin T C-Reactive Protein Total Protein Albumin Triglycerides Cholesterol LDL Cholesterol Direct HDL Cholesterol Urine WBC (Auto) Urine Creatinine Urine Total Protein Vancomycin Trough Rheumatoid Factor Complement C4 Miscellaneous Test Crossmatch 09/06/16 09/07/16 09/07/16 23:45 02:47 02:47 WBC RBC Hgb Hct MCV MCH MCHC RDW Plt Count Lymph % (Auto) [place] % (Auto) Lymph # [place] # Seg Neutrophils % Seg Neuts % (Manual) Lymphocytes % (Manual) Monocytes % (Manual) Eosinophils % (Manual) Basophils % (Manual) Nucleated RBC % Seg Neutrophils # Seg Neutrophils # Man Lymphocytes # (Manual) Monocytes # (Manual) Eosinophils # (Manual) PT INR Fibrinogen dRVVT Confirm Interp Factor V Activity POC ABG pH POC ABG pCO2 POC ABG pO2 Sodium Potassium Chloride Carbon Dioxide BUN Creatinine Glucose POC Glucose 204 H Lactic Acid Calcium Phosphorus Magnesium Direct Bilirubin ALT Alkaline Phosphatase Troponin T C-Reactive Protein Total Protein Albumin Triglycerides Cholesterol LDL Cholesterol Direct HDL Cholesterol Urine WBC (Auto) 68.0 H Urine Creatinine 106.1 H Urine Total Protein Vancomycin Trough Rheumatoid Factor Complement C4 Miscellaneous Test Crossmatch 09/07/16 09/07/16 09/07/16 04:50 06:19 06:39 WBC RBC Hgb Hct MCV MCH MCHC RDW Plt Count Lymph % (Auto) [place] % (Auto) Lymph # [place] # Seg Neutrophils % Seg Neuts % (Manual) Lymphocytes % (Manual) Monocytes % (Manual) Eosinophils % (Manual) Basophils % (Manual) Nucleated RBC % Seg Neutrophils # Seg Neutrophils # Man Lymphocytes # (Manual) Monocytes # (Manual) Eosinophils # (Manual) PT INR Fibrinogen dRVVT Confirm Interp Factor V Activity POC ABG pH 7.457 H POC ABG pCO2 32.1 L POC ABG pO2 76 L Sodium 132 L Potassium Chloride 94.7 L Carbon Dioxide BUN 53 H Creatinine 2.9 H Glucose 151 H POC Glucose 149 H Lactic Acid Calcium Phosphorus Magnesium Direct Bilirubin ALT Alkaline Phosphatase Troponin T C-Reactive Protein Total Protein Albumin Triglycerides Cholesterol LDL Cholesterol Direct HDL Cholesterol Urine WBC (Auto) Urine Creatinine Urine Total Protein Vancomycin Trough Rheumatoid Factor Complement C4 Miscellaneous Test Crossmatch 09/07/16 09/07/16 09/07/16 09:20 11:43 11:43 WBC 19.4 H RBC Hgb 8.3 L Hct 26.4 L D MCV 72 L D MCH 22 L MCHC RDW 17.9 H Plt Count Lymph % (Auto) 8.5 L [place] % (Auto) Lymph # [place] # 1.0 H Seg Neutrophils % 85.8 H Seg Neuts % (Manual) Lymphocytes % (Manual) Monocytes % (Manual) Eosinophils % (Manual) Basophils % (Manual) Nucleated RBC % Seg Neutrophils # 16.6 H Seg Neutrophils # Man Lymphocytes # (Manual) Monocytes # (Manual) Eosinophils # (Manual) PT INR Fibrinogen dRVVT Confirm Interp Factor V Activity POC ABG pH POC ABG pCO2 POC ABG pO2 Sodium 134 L Potassium Chloride 97.2 L Carbon Dioxide 20 L BUN 58 H Creatinine 2.9 H Glucose 147 H POC Glucose Lactic Acid Calcium Phosphorus 2.40 L Magnesium 2.40 H Direct Bilirubin ALT Alkaline Phosphatase Troponin T C-Reactive Protein Total Protein 5.8 L Albumin 2.2 L Triglycerides Cholesterol LDL Cholesterol Direct HDL Cholesterol Urine WBC (Auto) Urine Creatinine Urine Total Protein Vancomycin Trough Rheumatoid Factor Complement C4 58 H Miscellaneous Test Crossmatch 09/07/16 09/07/16 09/07/16 11:50 16:00 17:31 WBC RBC Hgb Hct MCV MCH MCHC RDW Plt Count Lymph % (Auto) [place] % (Auto) Lymph # [place] # Seg Neutrophils % Seg Neuts % (Manual) Lymphocytes % (Manual) Monocytes % (Manual) Eosinophils % (Manual) Basophils % (Manual) Nucleated RBC % Seg Neutrophils # Seg Neutrophils # Man Lymphocytes # (Manual) Monocytes # (Manual) Eosinophils # (Manual) PT INR Fibrinogen dRVVT Confirm Interp Factor V Activity POC ABG pH POC ABG pCO2 POC ABG pO2 158 H Sodium Potassium Chloride Carbon Dioxide BUN Creatinine Glucose POC Glucose 175 H Lactic Acid Calcium Phosphorus Magnesium Direct Bilirubin ALT Alkaline Phosphatase Troponin T C-Reactive Protein Total Protein Albumin Triglycerides Cholesterol LDL Cholesterol Direct HDL Cholesterol Urine WBC (Auto) Urine Creatinine 66.3 H Urine Total Protein Vancomycin Trough Rheumatoid Factor Complement C4 Miscellaneous Test Crossmatch 09/07/16 09/08/16 09/08/16 23:50 05:46 06:18 WBC 17.8 H RBC 3.58 L Hgb 8.1 L Hct 25.5 L MCV 71 L MCH 23 L MCHC RDW 18.4 H Plt Count Lymph % (Auto) [place] % (Auto) Lymph # [place] # Seg Neutrophils % Seg Neuts % (Manual) 92.0 H Lymphocytes % (Manual) 6.0 L Monocytes % (Manual) Eosinophils % (Manual) Basophils % (Manual) Nucleated RBC % Seg Neutrophils # Seg Neutrophils # Man 16.4 H Lymphocytes # (Manual) 1.1 L Monocytes # (Manual) Eosinophils # (Manual) PT INR Fibrinogen dRVVT Confirm Interp Factor V Activity POC ABG pH POC ABG pCO2 34.3 L POC ABG pO2 71 L Sodium Potassium Chloride Carbon Dioxide BUN Creatinine Glucose POC Glucose 216 H Lactic Acid Calcium Phosphorus Magnesium Direct Bilirubin ALT Alkaline Phosphatase Troponin T C-Reactive Protein Total Protein Albumin Triglycerides Cholesterol LDL Cholesterol Direct HDL Cholesterol Urine WBC (Auto) Urine Creatinine Urine Total Protein Vancomycin Trough Rheumatoid Factor Complement C4 Miscellaneous Test Crossmatch 09/08/16 09/08/16 09/08/16 06:18 06:51 10:55 WBC RBC Hgb Hct MCV MCH MCHC RDW Plt Count Lymph % (Auto) [place] % (Auto) Lymph # [place] # Seg Neutrophils % Seg Neuts % (Manual) Lymphocytes % (Manual) Monocytes % (Manual) Eosinophils % (Manual) Basophils % (Manual) Nucleated RBC % Seg Neutrophils # Seg Neutrophils # Man Lymphocytes # (Manual) Monocytes # (Manual) Eosinophils # (Manual) PT INR Fibrinogen dRVVT Confirm Interp Factor V Activity POC ABG pH POC ABG pCO2 POC ABG pO2 Sodium 133 L Potassium Chloride 96.9 L Carbon Dioxide 20 L BUN 63 H Creatinine 2.7 H Glucose 195 H POC Glucose 204 H 169 H Lactic Acid Calcium Phosphorus Magnesium Direct Bilirubin ALT Alkaline Phosphatase Troponin T C-Reactive Protein Total Protein Albumin Triglycerides Cholesterol LDL Cholesterol Direct HDL Cholesterol Urine WBC (Auto) Urine Creatinine Urine Total Protein Vancomycin Trough Rheumatoid Factor Complement C4 Miscellaneous Test Crossmatch 09/08/16 09/08/16 09/08/16 11:48 11:48 11:48 WBC RBC Hgb Hct MCV MCH MCHC RDW Plt Count Lymph % (Auto) [place] % (Auto) Lymph # [place] # Seg Neutrophils % Seg Neuts % (Manual) Lymphocytes % (Manual) Monocytes % (Manual) Eosinophils % (Manual) Basophils % (Manual) Nucleated RBC % Seg Neutrophils # Seg Neutrophils # Man Lymphocytes # (Manual) Monocytes # (Manual) Eosinophils # (Manual) PT INR Fibrinogen 750 H dRVVT Confirm Interp Factor V Activity POC ABG pH POC ABG pCO2 POC ABG pO2 Sodium Potassium Chloride Carbon Dioxide BUN Creatinine Glucose POC Glucose Lactic Acid Calcium Phosphorus Magnesium Direct Bilirubin ALT Alkaline Phosphatase Troponin T C-Reactive Protein 15.70 H Total Protein Albumin Triglycerides Cholesterol LDL Cholesterol Direct HDL Cholesterol Urine WBC (Auto) Urine Creatinine Urine Total Protein Vancomycin Trough Rheumatoid Factor 24 H Complement C4 Miscellaneous Test Crossmatch 09/08/16 09/08/16 09/09/16 15:35 18:25 00:24 WBC RBC Hgb Hct MCV MCH MCHC RDW Plt Count Lymph % (Auto) [place] % (Auto) Lymph # [place] # Seg Neutrophils % Seg Neuts % (Manual) Lymphocytes % (Manual) Monocytes % (Manual) Eosinophils % (Manual) Basophils % (Manual) Nucleated RBC % Seg Neutrophils # Seg Neutrophils # Man Lymphocytes # (Manual) Monocytes # (Manual) Eosinophils # (Manual) PT INR Fibrinogen dRVVT Confirm Interp Factor V Activity 182 H POC ABG pH POC ABG pCO2 POC ABG pO2 Sodium Potassium Chloride Carbon Dioxide BUN Creatinine Glucose POC Glucose 184 H 216 H Lactic Acid Calcium Phosphorus Magnesium Direct Bilirubin ALT Alkaline Phosphatase Troponin T C-Reactive Protein Total Protein Albumin Triglycerides Cholesterol LDL Cholesterol Direct HDL Cholesterol Urine WBC (Auto) Urine Creatinine Urine Total Protein Vancomycin Trough Rheumatoid Factor Complement C4 Miscellaneous Test Crossmatch 09/09/16 09/09/16 09/09/16 03:00 03:00 04:04 WBC 27.9 H RBC Hgb 8.7 L Hct 28.1 L MCV 72 L MCH 22 L MCHC RDW 18.4 H Plt Count 485 H Lymph % (Auto) [place] % (Auto) Lymph # [place] # Seg Neutrophils % Seg Neuts % (Manual) 77.0 H Lymphocytes % (Manual) 9.0 L Monocytes % (Manual) Eosinophils % (Manual) Basophils % (Manual) Nucleated RBC % Seg Neutrophils # Seg Neutrophils # Man 21.5 H Lymphocytes # (Manual) Monocytes # (Manual) 2.0 H Eosinophils # (Manual) PT INR Fibrinogen dRVVT Confirm Interp Factor V Activity POC ABG pH POC ABG pCO2 POC ABG pO2 121 H Sodium 135 L Potassium Chloride 96.3 L Carbon Dioxide 21 L BUN 83 H Creatinine 3.0 H Glucose 135 H POC Glucose Lactic Acid Calcium Phosphorus Magnesium Direct Bilirubin ALT Alkaline Phosphatase Troponin T C-Reactive Protein Total Protein Albumin Triglycerides Cholesterol LDL Cholesterol Direct HDL Cholesterol Urine WBC (Auto) Urine Creatinine Urine Total Protein Vancomycin Trough Rheumatoid Factor Complement C4 Miscellaneous Test Crossmatch 09/09/16 09/09/16 09/09/16 05:41 11:55 14:13 WBC RBC Hgb Hct MCV MCH MCHC RDW Plt Count Lymph % (Auto) [place] % (Auto) Lymph # [place] # Seg Neutrophils % Seg Neuts % (Manual) Lymphocytes % (Manual) Monocytes % (Manual) Eosinophils % (Manual) Basophils % (Manual) Nucleated RBC % Seg Neutrophils # Seg Neutrophils # Man Lymphocytes # (Manual) Monocytes # (Manual) Eosinophils # (Manual) PT INR Fibrinogen dRVVT Confirm Interp Factor V Activity POC ABG pH POC ABG pCO2 POC ABG pO2 Sodium Potassium Chloride Carbon Dioxide BUN Creatinine Glucose POC Glucose 155 H 186 H Lactic Acid Calcium Phosphorus Magnesium Direct Bilirubin ALT Alkaline Phosphatase Troponin T C-Reactive Protein Total Protein Albumin Triglycerides Cholesterol LDL Cholesterol Direct HDL Cholesterol Urine WBC (Auto) 25.0 H Urine Creatinine Urine Total Protein Vancomycin Trough Rheumatoid Factor Complement C4 Miscellaneous Test Crossmatch 09/09/16 09/09/16 09/10/16 17:33 23:13 05:09 WBC RBC Hgb Hct MCV MCH MCHC RDW Plt Count Lymph % (Auto) [place] % (Auto) Lymph # [place] # Seg Neutrophils % Seg Neuts % (Manual) Lymphocytes % (Manual) Monocytes % (Manual) Eosinophils % (Manual) Basophils % (Manual) Nucleated RBC % Seg Neutrophils # Seg Neutrophils # Man Lymphocytes # (Manual) Monocytes # (Manual) Eosinophils # (Manual) PT INR Fibrinogen dRVVT Confirm Interp Factor V Activity POC ABG pH POC ABG pCO2 POC ABG pO2 74 L Sodium Potassium Chloride Carbon Dioxide BUN Creatinine Glucose POC Glucose 211 H 215 H Lactic Acid Calcium Phosphorus Magnesium Direct Bilirubin ALT Alkaline Phosphatase Troponin T C-Reactive Protein Total Protein Albumin Triglycerides Cholesterol LDL Cholesterol Direct HDL Cholesterol Urine WBC (Auto) Urine Creatinine Urine Total Protein Vancomycin Trough Rheumatoid Factor Complement C4 Miscellaneous Test Crossmatch 09/10/16 09/10/16 09/10/16 05:17 05:17 11:31 WBC 15.8 H RBC 3.25 L Hgb 7.3 L Hct 22.9 L MCV 71 L MCH 23 L MCHC RDW 18.4 H Plt Count Lymph % (Auto) [place] % (Auto) Lymph # [place] # Seg Neutrophils % Seg Neuts % (Manual) 91.0 H Lymphocytes % (Manual) 4.0 L Monocytes % (Manual) Eosinophils % (Manual) Basophils % (Manual) Nucleated RBC % Seg Neutrophils # Seg Neutrophils # Man 14.4 H Lymphocytes # (Manual) 0.6 L Monocytes # (Manual) Eosinophils # (Manual) PT INR Fibrinogen dRVVT Confirm Interp Factor V Activity POC ABG pH POC ABG pCO2 POC ABG pO2 Sodium Potassium Chloride Carbon Dioxide 21 L BUN 93 H Creatinine 2.9 H Glucose 146 H POC Glucose 188 H Lactic Acid Calcium 8.1 L Phosphorus Magnesium Direct Bilirubin ALT Alkaline Phosphatase Troponin T C-Reactive Protein Total Protein Albumin Triglycerides Cholesterol LDL Cholesterol Direct HDL Cholesterol Urine WBC (Auto) Urine Creatinine Urine Total Protein Vancomycin Trough Rheumatoid Factor Complement C4 Miscellaneous Test Crossmatch 09/10/16 09/10/16 09/10/16 13:17 17:20 23:32 WBC RBC Hgb Hct MCV MCH MCHC RDW Plt Count Lymph % (Auto) [place] % (Auto) Lymph # [place] # Seg Neutrophils % Seg Neuts % (Manual) Lymphocytes % (Manual) Monocytes % (Manual) Eosinophils % (Manual) Basophils % (Manual) Nucleated RBC % Seg Neutrophils # Seg Neutrophils # Man Lymphocytes # (Manual) Monocytes # (Manual) Eosinophils # (Manual) PT INR Fibrinogen dRVVT Confirm Interp Factor V Activity POC ABG pH POC ABG pCO2 POC ABG pO2 Sodium Potassium Chloride Carbon Dioxide BUN Creatinine Glucose POC Glucose 199 H 186 H Lactic Acid Calcium Phosphorus Magnesium Direct Bilirubin ALT Alkaline Phosphatase Troponin T C-Reactive Protein Total Protein Albumin Triglycerides Cholesterol LDL Cholesterol Direct HDL Cholesterol Urine WBC (Auto) Urine Creatinine Urine Total Protein Vancomycin Trough Rheumatoid Factor Complement C4 Miscellaneous Test Crossmatch See Detail 09/11/16 09/11/16 09/11/16 05:10 05:10 05:17 WBC 28.4 H RBC Hgb 9.2 L Hct 29.3 L D MCV 73 L MCH 23 L MCHC RDW 18.9 H Plt Count 452 H Lymph % (Auto) [place] % (Auto) Lymph # [place] # Seg Neutrophils % Seg Neuts % (Manual) 89.5 H Lymphocytes % (Manual) 2.0 L Monocytes % (Manual) Eosinophils % (Manual) Basophils % (Manual) Nucleated RBC % Seg Neutrophils # Seg Neutrophils # Man 25.4 H Lymphocytes # (Manual) 0.6 L Monocytes # (Manual) 1.3 H Eosinophils # (Manual) PT INR Fibrinogen dRVVT Confirm Interp Factor V Activity POC ABG pH POC ABG pCO2 POC ABG pO2 Sodium 136 L Potassium Chloride Carbon Dioxide 18 L BUN 107 H Creatinine 2.6 H Glucose 187 H POC Glucose 230 H Lactic Acid Calcium 8.3 L Phosphorus Magnesium Direct Bilirubin ALT Alkaline Phosphatase Troponin T C-Reactive Protein Total Protein Albumin Triglycerides Cholesterol LDL Cholesterol Direct HDL Cholesterol Urine WBC (Auto) Urine Creatinine Urine Total Protein Vancomycin Trough Rheumatoid Factor Complement C4 Miscellaneous Test Crossmatch 09/11/16 09/11/16 09/11/16 05:55 12:02 17:32 WBC RBC Hgb Hct MCV MCH MCHC RDW Plt Count Lymph % (Auto) [place] % (Auto) Lymph # [place] # Seg Neutrophils % Seg Neuts % (Manual) Lymphocytes % (Manual) Monocytes % (Manual) Eosinophils % (Manual) Basophils % (Manual) Nucleated RBC % Seg Neutrophils # Seg Neutrophils # Man Lymphocytes # (Manual) Monocytes # (Manual) Eosinophils # (Manual) PT INR Fibrinogen dRVVT Confirm Interp Factor V Activity POC ABG pH POC ABG pCO2 33.8 L POC ABG pO2 Sodium Potassium Chloride Carbon Dioxide BUN Creatinine Glucose POC Glucose 191 H 239 H Lactic Acid Calcium Phosphorus Magnesium Direct Bilirubin ALT Alkaline Phosphatase Troponin T C-Reactive Protein Total Protein Albumin Triglycerides Cholesterol LDL Cholesterol Direct HDL Cholesterol Urine WBC (Auto) Urine Creatinine Urine Total Protein Vancomycin Trough Rheumatoid Factor Complement C4 Miscellaneous Test Crossmatch 09/11/16 09/12/16 09/12/16 23:52 05:09 05:32 WBC RBC Hgb Hct MCV MCH MCHC RDW Plt Count Lymph % (Auto) [place] % (Auto) Lymph # [place] # Seg Neutrophils % Seg Neuts % (Manual) Lymphocytes % (Manual) Monocytes % (Manual) Eosinophils % (Manual) Basophils % (Manual) Nucleated RBC % Seg Neutrophils # Seg Neutrophils # Man Lymphocytes # (Manual) Monocytes # (Manual) Eosinophils # (Manual) PT INR Fibrinogen dRVVT Confirm Interp Factor V Activity POC ABG pH POC ABG pCO2 34.6 L POC ABG pO2 Sodium Potassium Chloride Carbon Dioxide BUN Creatinine Glucose POC Glucose 265 H 184 H Lactic Acid Calcium Phosphorus Magnesium Direct Bilirubin ALT Alkaline Phosphatase Troponin T C-Reactive Protein Total Protein Albumin Triglycerides Cholesterol LDL Cholesterol Direct HDL Cholesterol Urine WBC (Auto) Urine Creatinine Urine Total Protein Vancomycin Trough Rheumatoid Factor Complement C4 Miscellaneous Test Crossmatch 09/12/16 09/12/16 09/12/16 06:45 06:45 07:22 WBC 31.7 H RBC 3.54 L Hgb 8.3 L Hct 25.9 L MCV 73 L MCH 23 L MCHC RDW 18.9 H Plt Count Lymph % (Auto) [place] % (Auto) Lymph # [place] # Seg Neutrophils % Seg Neuts % (Manual) 88.5 H Lymphocytes % (Manual) 4.5 L Monocytes % (Manual) Eosinophils % (Manual) Basophils % (Manual) Nucleated RBC % Seg Neutrophils # Seg Neutrophils # Man 28.1 H Lymphocytes # (Manual) Monocytes # (Manual) 1.0 H Eosinophils # (Manual) PT INR Fibrinogen dRVVT Confirm Interp Factor V Activity POC ABG pH POC ABG pCO2 POC ABG pO2 Sodium Potassium Chloride Carbon Dioxide 20 L BUN 115 H Creatinine 2.7 H Glucose 165 H POC Glucose Lactic Acid Calcium 8.0 L Phosphorus Magnesium Direct Bilirubin ALT Alkaline Phosphatase Troponin T C-Reactive Protein Total Protein Albumin Triglycerides 217 H Cholesterol LDL Cholesterol Direct HDL Cholesterol Urine WBC (Auto) Urine Creatinine Urine Total Protein Vancomycin Trough Rheumatoid Factor Complement C4 Miscellaneous Test Crossmatch 09/12/16 09/12/16 09/12/16 07:22 09:59 12:21 WBC RBC Hgb Hct MCV MCH MCHC RDW Plt Count Lymph % (Auto) [place] % (Auto) Lymph # [place] # Seg Neutrophils % Seg Neuts % (Manual) Lymphocytes % (Manual) Monocytes % (Manual) Eosinophils % (Manual) Basophils % (Manual) Nucleated RBC % Seg Neutrophils # Seg Neutrophils # Man Lymphocytes # (Manual) Monocytes # (Manual) Eosinophils # (Manual) PT INR Fibrinogen dRVVT Confirm Interp Positive H Factor V Activity POC ABG pH POC ABG pCO2 POC ABG pO2 Sodium Potassium Chloride Carbon Dioxide BUN Creatinine Glucose POC Glucose 224 H Lactic Acid Calcium Phosphorus Magnesium Direct Bilirubin ALT Alkaline Phosphatase Troponin T C-Reactive Protein 1.70 H Total Protein Albumin Triglycerides Cholesterol LDL Cholesterol Direct HDL Cholesterol Urine WBC (Auto) Urine Creatinine Urine Total Protein Vancomycin Trough Rheumatoid Factor Complement C4 Miscellaneous Test Crossmatch 09/12/16 09/12/16 09/13/16 16:51 23:28 04:00 WBC 45.0 H* RBC Hgb 9.4 L Hct MCV 75 L MCH 23 L MCHC RDW 19.0 H Plt Count 470 H Lymph % (Auto) [place] % (Auto) Lymph # [place] # Seg Neutrophils % Seg Neuts % (Manual) 89.0 H Lymphocytes % (Manual) 5.0 L Monocytes % (Manual) Eosinophils % (Manual) Basophils % (Manual) Nucleated RBC % Seg Neutrophils # Seg Neutrophils # Man 40.1 H Lymphocytes # (Manual) Monocytes # (Manual) Eosinophils # (Manual) PT INR Fibrinogen dRVVT Confirm Interp Factor V Activity POC ABG pH POC ABG pCO2 POC ABG pO2 Sodium Potassium Chloride Carbon Dioxide BUN Creatinine Glucose POC Glucose 169 H 150 H Lactic Acid Calcium Phosphorus Magnesium Direct Bilirubin ALT Alkaline Phosphatase Troponin T C-Reactive Protein Total Protein Albumin Triglycerides Cholesterol LDL Cholesterol Direct HDL Cholesterol Urine WBC (Auto) Urine Creatinine Urine Total Protein Vancomycin Trough Rheumatoid Factor Complement C4 Miscellaneous Test Crossmatch 09/13/16 09/13/16 09/13/16 04:00 11:26 17:31 WBC RBC Hgb Hct MCV MCH MCHC RDW Plt Count Lymph % (Auto) [place] % (Auto) Lymph # [place] # Seg Neutrophils % Seg Neuts % (Manual) Lymphocytes % (Manual) Monocytes % (Manual) Eosinophils % (Manual) Basophils % (Manual) Nucleated RBC % Seg Neutrophils # Seg Neutrophils # Man Lymphocytes # (Manual) Monocytes # (Manual) Eosinophils # (Manual) PT INR Fibrinogen dRVVT Confirm Interp Factor V Activity POC ABG pH POC ABG pCO2 POC ABG pO2 Sodium Potassium Chloride Carbon Dioxide 20 L BUN 116 H Creatinine 3.0 H Glucose 172 H POC Glucose 140 H 183 H Lactic Acid Calcium Phosphorus Magnesium Direct Bilirubin ALT Alkaline Phosphatase Troponin T C-Reactive Protein Total Protein 6.2 L Albumin 2.9 L Triglycerides Cholesterol LDL Cholesterol Direct HDL Cholesterol Urine WBC (Auto) Urine Creatinine Urine Total Protein Vancomycin Trough Rheumatoid Factor Complement C4 Miscellaneous Test Crossmatch 09/13/16 09/14/16 09/14/16 23:23 04:06 04:07 WBC 29.4 H RBC Hgb 8.9 L Hct 27.3 L MCV 75 L MCH 24 L MCHC RDW 19.1 H Plt Count Lymph % (Auto) [place] % (Auto) Lymph # [place] # Seg Neutrophils % Seg Neuts % (Manual) 84.0 H Lymphocytes % (Manual) 6.0 L Monocytes % (Manual) 9.0 H Eosinophils % (Manual) Basophils % (Manual) Nucleated RBC % Seg Neutrophils # Seg Neutrophils # Man 24.7 H Lymphocytes # (Manual) Monocytes # (Manual) 2.6 H Eosinophils # (Manual) PT INR Fibrinogen dRVVT Confirm Interp Factor V Activity POC ABG pH 7.342 L POC ABG pCO2 POC ABG pO2 116 H Sodium Potassium Chloride Carbon Dioxide BUN Creatinine Glucose POC Glucose 154 H Lactic Acid Calcium Phosphorus Magnesium Direct Bilirubin ALT Alkaline Phosphatase Troponin T C-Reactive Protein Total Protein Albumin Triglycerides Cholesterol LDL Cholesterol Direct HDL Cholesterol Urine WBC (Auto) Urine Creatinine Urine Total Protein Vancomycin Trough Rheumatoid Factor Complement C4 Miscellaneous Test Crossmatch 09/14/16 09/14/16 09/14/16 04:07 05:29 12:19 WBC RBC Hgb Hct MCV MCH MCHC RDW Plt Count Lymph % (Auto) [place] % (Auto) Lymph # [place] # Seg Neutrophils % Seg Neuts % (Manual) Lymphocytes % (Manual) Monocytes % (Manual) Eosinophils % (Manual) Basophils % (Manual) Nucleated RBC % Seg Neutrophils # Seg Neutrophils # Man Lymphocytes # (Manual) Monocytes # (Manual) Eosinophils # (Manual) PT INR Fibrinogen dRVVT Confirm Interp Factor V Activity POC ABG pH POC ABG pCO2 POC ABG pO2 Sodium 136 L Potassium Chloride Carbon Dioxide 18 L BUN 121 H Creatinine 2.8 H Glucose 214 H POC Glucose 239 H 181 H Lactic Acid Calcium Phosphorus Magnesium Direct Bilirubin ALT Alkaline Phosphatase Troponin T C-Reactive Protein Total Protein Albumin Triglycerides Cholesterol LDL Cholesterol Direct HDL Cholesterol Urine WBC (Auto) Urine Creatinine Urine Total Protein Vancomycin Trough Rheumatoid Factor Complement C4 Miscellaneous Test Crossmatch 09/14/16 09/14/16 09/15/16 18:12 23:37 05:00 WBC 26.1 H RBC 3.05 L Hgb 7.2 L Hct 22.9 L MCV 75 L MCH 24 L MCHC RDW 19.0 H Plt Count Lymph % (Auto) [place] % (Auto) Lymph # [place] # Seg Neutrophils % Seg Neuts % (Manual) Lymphocytes % (Manual) Monocytes % (Manual) Eosinophils % (Manual) Basophils % (Manual) Nucleated RBC % Seg Neutrophils # Seg Neutrophils # Man Lymphocytes # (Manual) Monocytes # (Manual) Eosinophils # (Manual) PT INR Fibrinogen dRVVT Confirm Interp Factor V Activity POC ABG pH POC ABG pCO2 POC ABG pO2 Sodium Potassium Chloride Carbon Dioxide BUN Creatinine Glucose POC Glucose 266 H 154 H Lactic Acid Calcium Phosphorus Magnesium Direct Bilirubin ALT Alkaline Phosphatase Troponin T C-Reactive Protein Total Protein Albumin Triglycerides Cholesterol LDL Cholesterol Direct HDL Cholesterol Urine WBC (Auto) Urine Creatinine Urine Total Protein Vancomycin Trough Rheumatoid Factor Complement C4 Miscellaneous Test Crossmatch 09/15/16 09/15/16 09/15/16 05:00 05:17 12:45 WBC RBC Hgb Hct MCV MCH MCHC RDW Plt Count Lymph % (Auto) [place] % (Auto) Lymph # [place] # Seg Neutrophils % Seg Neuts % (Manual) Lymphocytes % (Manual) Monocytes % (Manual) Eosinophils % (Manual) Basophils % (Manual) Nucleated RBC % Seg Neutrophils # Seg Neutrophils # Man Lymphocytes # (Manual) Monocytes # (Manual) Eosinophils # (Manual) PT INR Fibrinogen dRVVT Confirm Interp Factor V Activity POC ABG pH POC ABG pCO2 POC ABG pO2 Sodium Potassium 5.2 H Chloride Carbon Dioxide 18 L BUN 139 H Creatinine 3.7 H Glucose 227 H POC Glucose 226 H 244 H Lactic Acid Calcium 8.3 L Phosphorus Magnesium Direct Bilirubin ALT Alkaline Phosphatase Troponin T C-Reactive Protein Total Protein Albumin Triglycerides Cholesterol LDL Cholesterol Direct HDL Cholesterol Urine WBC (Auto) Urine Creatinine Urine Total Protein Vancomycin Trough Rheumatoid Factor Complement C4 Miscellaneous Test Crossmatch 09/15/16 09/15/16 09/15/16 14:32 17:33 23:35 WBC RBC Hgb Hct MCV MCH MCHC RDW Plt Count Lymph % (Auto) [place] % (Auto) Lymph # [place] # Seg Neutrophils % Seg Neuts % (Manual) Lymphocytes % (Manual) Monocytes % (Manual) Eosinophils % (Manual) Basophils % (Manual) Nucleated RBC % Seg Neutrophils # Seg Neutrophils # Man Lymphocytes # (Manual) Monocytes # (Manual) Eosinophils # (Manual) PT INR Fibrinogen dRVVT Confirm Interp Factor V Activity POC ABG pH POC ABG pCO2 27.7 L POC ABG pO2 120 H Sodium Potassium Chloride Carbon Dioxide BUN Creatinine Glucose POC Glucose 232 H 167 H Lactic Acid Calcium Phosphorus Magnesium Direct Bilirubin ALT Alkaline Phosphatase Troponin T C-Reactive Protein Total Protein Albumin Triglycerides Cholesterol LDL Cholesterol Direct HDL Cholesterol Urine WBC (Auto) Urine Creatinine Urine Total Protein Vancomycin Trough Rheumatoid Factor Complement C4 Miscellaneous Test Crossmatch 09/16/16 09/16/16 09/16/16 03:58 10:27 10:27 WBC 19.0 H RBC 2.77 L Hgb 6.5 L Hct 20.9 L MCV 76 L MCH 23 L MCHC RDW 19.3 H Plt Count Lymph % (Auto) 11.0 L [place] % (Auto) Lymph # [place] # 1.1 H Seg Neutrophils % 82.5 H Seg Neuts % (Manual) Lymphocytes % (Manual) Monocytes % (Manual) Eosinophils % (Manual) Basophils % (Manual) Nucleated RBC % Seg Neutrophils # 15.7 H Seg Neutrophils # Man Lymphocytes # (Manual) Monocytes # (Manual) Eosinophils # (Manual) PT INR Fibrinogen dRVVT Confirm Interp Factor V Activity POC ABG pH POC ABG pCO2 POC ABG pO2 Sodium Potassium Chloride 109.3 H Carbon Dioxide 18 L BUN 139 H Creatinine 4.1 H Glucose 144 H POC Glucose 146 H Lactic Acid Calcium 8.1 L Phosphorus Magnesium Direct Bilirubin ALT Alkaline Phosphatase Troponin T C-Reactive Protein Total Protein Albumin Triglycerides Cholesterol LDL Cholesterol Direct HDL Cholesterol Urine WBC (Auto) Urine Creatinine Urine Total Protein Vancomycin Trough Rheumatoid Factor Complement C4 Miscellaneous Test Crossmatch 09/16/16 09/16/16 09/16/16 12:04 12:10 13:55 WBC RBC Hgb Hct MCV MCH MCHC RDW Plt Count Lymph % (Auto) [place] % (Auto) Lymph # [place] # Seg Neutrophils % Seg Neuts % (Manual) Lymphocytes % (Manual) Monocytes % (Manual) Eosinophils % (Manual) Basophils % (Manual) Nucleated RBC % Seg Neutrophils # Seg Neutrophils # Man Lymphocytes # (Manual) Monocytes # (Manual) Eosinophils # (Manual) PT INR Fibrinogen dRVVT Confirm Interp Factor V Activity POC ABG pH POC ABG pCO2 32.9 L POC ABG pO2 Sodium Potassium Chloride Carbon Dioxide BUN Creatinine Glucose POC Glucose 185 H Lactic Acid Calcium Phosphorus Magnesium Direct Bilirubin ALT Alkaline Phosphatase Troponin T C-Reactive Protein Total Protein Albumin Triglycerides Cholesterol LDL Cholesterol Direct HDL Cholesterol Urine WBC (Auto) Urine Creatinine Urine Total Protein Vancomycin Trough Rheumatoid Factor Complement C4 Miscellaneous Test Crossmatch See Detail 09/16/16 09/16/16 09/16/16 17:55 19:19 23:48 WBC RBC Hgb Hct MCV MCH MCHC RDW Plt Count Lymph % (Auto) [place] % (Auto) Lymph # [place] # Seg Neutrophils % Seg Neuts % (Manual) Lymphocytes % (Manual) Monocytes % (Manual) Eosinophils % (Manual) Basophils % (Manual) Nucleated RBC % Seg Neutrophils # Seg Neutrophils # Man Lymphocytes # (Manual) Monocytes # (Manual) Eosinophils # (Manual) PT INR Fibrinogen dRVVT Confirm Interp Factor V Activity POC ABG pH POC ABG pCO2 POC ABG pO2 Sodium Potassium Chloride Carbon Dioxide BUN Creatinine Glucose POC Glucose 222 H 107 H Lactic Acid Calcium Phosphorus Magnesium Direct Bilirubin ALT Alkaline Phosphatase Troponin T C-Reactive Protein Total Protein Albumin Triglycerides Cholesterol LDL Cholesterol Direct HDL Cholesterol Urine WBC (Auto) Urine Creatinine 47.4 H Urine Total Protein 16 H Vancomycin Trough Rheumatoid Factor Complement C4 Miscellaneous Test Crossmatch 09/17/16 09/17/16 09/17/16 03:45 03:45 04:55 WBC 19.6 H RBC 3.41 L Hgb 8.5 L Hct 26.7 L MCV 78 L MCH 25 L MCHC RDW 19.9 H Plt Count Lymph % (Auto) 9.3 L [place] % (Auto) Lymph # [place] # 1.2 H Seg Neutrophils % 83.9 H Seg Neuts % (Manual) Lymphocytes % (Manual) Monocytes % (Manual) Eosinophils % (Manual) Basophils % (Manual) Nucleated RBC % Seg Neutrophils # 16.4 H Seg Neutrophils # Man Lymphocytes # (Manual) Monocytes # (Manual) Eosinophils # (Manual) PT INR Fibrinogen dRVVT Confirm Interp Factor V Activity POC ABG pH POC ABG pCO2 POC ABG pO2 Sodium 146 H Potassium 5.1 H Chloride 110.9 H Carbon Dioxide 16 L BUN 146 H Creatinine 4.0 H Glucose 108 H POC Glucose 133 H Lactic Acid Calcium Phosphorus Magnesium 3.00 H Direct Bilirubin ALT Alkaline Phosphatase Troponin T C-Reactive Protein Total Protein Albumin Triglycerides Cholesterol LDL Cholesterol Direct HDL Cholesterol Urine WBC (Auto) Urine Creatinine Urine Total Protein Vancomycin Trough Rheumatoid Factor Complement C4 Miscellaneous Test Crossmatch 09/17/16 09/17/16 09/17/16 11:15 17:33 23:47 WBC RBC Hgb Hct MCV MCH MCHC RDW Plt Count Lymph % (Auto) [place] % (Auto) Lymph # [place] # Seg Neutrophils % Seg Neuts % (Manual) Lymphocytes % (Manual) Monocytes % (Manual) Eosinophils % (Manual) Basophils % (Manual) Nucleated RBC % Seg Neutrophils # Seg Neutrophils # Man Lymphocytes # (Manual) Monocytes # (Manual) Eosinophils # (Manual) PT INR Fibrinogen dRVVT Confirm Interp Factor V Activity POC ABG pH POC ABG pCO2 POC ABG pO2 Sodium Potassium Chloride Carbon Dioxide BUN Creatinine Glucose POC Glucose 176 H 246 H 148 H Lactic Acid Calcium Phosphorus Magnesium Direct Bilirubin ALT Alkaline Phosphatase Troponin T C-Reactive Protein Total Protein Albumin Triglycerides Cholesterol LDL Cholesterol Direct HDL Cholesterol Urine WBC (Auto) Urine Creatinine Urine Total Protein Vancomycin Trough Rheumatoid Factor Complement C4 Miscellaneous Test Crossmatch 09/18/16 09/18/16 09/18/16 05:33 08:31 08:31 WBC 18.0 H RBC 3.17 L Hgb 9.0 L Hct 25.7 L MCV MCH MCHC 35 H RDW 20.4 H Plt Count Lymph % (Auto) [place] % (Auto) Lymph # [place] # Seg Neutrophils % Seg Neuts % (Manual) Lymphocytes % (Manual) Monocytes % (Manual) Eosinophils % (Manual) Basophils % (Manual) Nucleated RBC % Seg Neutrophils # Seg Neutrophils # Man Lymphocytes # (Manual) Monocytes # (Manual) Eosinophils # (Manual) PT INR Fibrinogen dRVVT Confirm Interp Factor V Activity POC ABG pH POC ABG pCO2 POC ABG pO2 Sodium Potassium Chloride Carbon Dioxide 15 L BUN 124 H Creatinine 3.8 H Glucose POC Glucose 120 H Lactic Acid Calcium 8.1 L Phosphorus Magnesium Direct Bilirubin ALT Alkaline Phosphatase Troponin T C-Reactive Protein Total Protein Albumin Triglycerides Cholesterol LDL Cholesterol Direct HDL Cholesterol Urine WBC (Auto) Urine Creatinine Urine Total Protein Vancomycin Trough Rheumatoid Factor Complement C4 Miscellaneous Test Crossmatch 09/18/16 09/18/16 09/18/16 12:03 15:34 17:50 WBC RBC Hgb Hct MCV MCH MCHC RDW Plt Count Lymph % (Auto) [place] % (Auto) Lymph # [place] # Seg Neutrophils % Seg Neuts % (Manual) Lymphocytes % (Manual) Monocytes % (Manual) Eosinophils % (Manual) Basophils % (Manual) Nucleated RBC % Seg Neutrophils # Seg Neutrophils # Man Lymphocytes # (Manual) Monocytes # (Manual) Eosinophils # (Manual) PT INR Fibrinogen dRVVT Confirm Interp Factor V Activity POC ABG pH POC ABG pCO2 25.7 L POC ABG pO2 66 L Sodium Potassium Chloride Carbon Dioxide BUN Creatinine Glucose POC Glucose 156 H 220 H Lactic Acid Calcium Phosphorus Magnesium Direct Bilirubin ALT Alkaline Phosphatase Troponin T C-Reactive Protein Total Protein Albumin Triglycerides Cholesterol LDL Cholesterol Direct HDL Cholesterol Urine WBC (Auto) Urine Creatinine Urine Total Protein Vancomycin Trough Rheumatoid Factor Complement C4 Miscellaneous Test Crossmatch 09/19/16 09/19/16 09/19/16 06:21 09:50 09:50 WBC 17.1 H RBC 3.49 L Hgb 9.0 L Hct 28.1 L MCV MCH 26 L MCHC RDW 20.8 H Plt Count Lymph % (Auto) 11.5 L [place] % (Auto) 7.5 H Lymph # [place] # 1.3 H Seg Neutrophils % 79.8 H Seg Neuts % (Manual) Lymphocytes % (Manual) Monocytes % (Manual) Eosinophils % (Manual) Basophils % (Manual) Nucleated RBC % Seg Neutrophils # 13.7 H Seg Neutrophils # Man Lymphocytes # (Manual) Monocytes # (Manual) Eosinophils # (Manual) PT INR Fibrinogen dRVVT Confirm Interp Factor V Activity POC ABG pH POC ABG pCO2 POC ABG pO2 Sodium Potassium Chloride 108.6 H Carbon Dioxide 15 L BUN 125 H Creatinine 4.1 H Glucose 124 H POC Glucose 119 H Lactic Acid Calcium Phosphorus Magnesium Direct Bilirubin ALT Alkaline Phosphatase Troponin T C-Reactive Protein Total Protein Albumin Triglycerides Cholesterol LDL Cholesterol Direct HDL Cholesterol Urine WBC (Auto) Urine Creatinine Urine Total Protein Vancomycin Trough Rheumatoid Factor Complement C4 Miscellaneous Test Crossmatch 09/19/16 09/19/16 09/19/16 11:25 17:53 23:36 WBC RBC Hgb Hct MCV MCH MCHC RDW Plt Count Lymph % (Auto) [place] % (Auto) Lymph # [place] # Seg Neutrophils % Seg Neuts % (Manual) Lymphocytes % (Manual) Monocytes % (Manual) Eosinophils % (Manual) Basophils % (Manual) Nucleated RBC % Seg Neutrophils # Seg Neutrophils # Man Lymphocytes # (Manual) Monocytes # (Manual) Eosinophils # (Manual) PT INR Fibrinogen dRVVT Confirm Interp Factor V Activity POC ABG pH POC ABG pCO2 POC ABG pO2 Sodium Potassium Chloride Carbon Dioxide BUN Creatinine Glucose POC Glucose 160 H 245 H 121 H Lactic Acid Calcium Phosphorus Magnesium Direct Bilirubin ALT Alkaline Phosphatase Troponin T C-Reactive Protein Total Protein Albumin Triglycerides Cholesterol LDL Cholesterol Direct HDL Cholesterol Urine WBC (Auto) Urine Creatinine Urine Total Protein Vancomycin Trough Rheumatoid Factor Complement C4 Miscellaneous Test Crossmatch 09/20/16 09/20/16 09/20/16 04:10 04:10 04:10 WBC 17.0 H RBC 3.21 L Hgb 8.2 L Hct 25.5 L MCV MCH 26 L MCHC RDW 20.9 H Plt Count Lymph % (Auto) [place] % (Auto) Lymph # [place] # Seg Neutrophils % Seg Neuts % (Manual) Lymphocytes % (Manual) Monocytes % (Manual) Eosinophils % (Manual) Basophils % (Manual) Nucleated RBC % Seg Neutrophils # Seg Neutrophils # Man Lymphocytes # (Manual) Monocytes # (Manual) Eosinophils # (Manual) PT INR Fibrinogen dRVVT Confirm Interp Factor V Activity POC ABG pH POC ABG pCO2 POC ABG pO2 Sodium Potassium Chloride 111.0 H Carbon Dioxide 16 L BUN 129 H Creatinine 3.7 H Glucose 115 H POC Glucose Lactic Acid Calcium 8.2 L Phosphorus Magnesium Direct Bilirubin ALT Alkaline Phosphatase Troponin T C-Reactive Protein Total Protein Albumin Triglycerides 243 H Cholesterol LDL Cholesterol Direct HDL Cholesterol Urine WBC (Auto) Urine Creatinine Urine Total Protein Vancomycin Trough Rheumatoid Factor Complement C4 Miscellaneous Test Crossmatch 09/20/16 09/20/16 09/20/16 05:40 11:52 16:50 WBC RBC Hgb Hct MCV MCH MCHC RDW Plt Count Lymph % (Auto) [place] % (Auto) Lymph # [place] # Seg Neutrophils % Seg Neuts % (Manual) Lymphocytes % (Manual) Monocytes % (Manual) Eosinophils % (Manual) Basophils % (Manual) Nucleated RBC % Seg Neutrophils # Seg Neutrophils # Man Lymphocytes # (Manual) Monocytes # (Manual) Eosinophils # (Manual) PT INR Fibrinogen dRVVT Confirm Interp Factor V Activity POC ABG pH POC ABG pCO2 POC ABG pO2 Sodium Potassium Chloride Carbon Dioxide BUN Creatinine Glucose POC Glucose 131 H 183 H 236 H Lactic Acid Calcium Phosphorus Magnesium Direct Bilirubin ALT Alkaline Phosphatase Troponin T C-Reactive Protein Total Protein Albumin Triglycerides Cholesterol LDL Cholesterol Direct HDL Cholesterol Urine WBC (Auto) Urine Creatinine Urine Total Protein Vancomycin Trough Rheumatoid Factor Complement C4 Miscellaneous Test Crossmatch 09/20/16 09/21/16 09/21/16 23:51 03:30 04:44 WBC RBC Hgb Hct MCV MCH MCHC RDW Plt Count Lymph % (Auto) [place] % (Auto) Lymph # [place] # Seg Neutrophils % Seg Neuts % (Manual) Lymphocytes % (Manual) Monocytes % (Manual) Eosinophils % (Manual) Basophils % (Manual) Nucleated RBC % Seg Neutrophils # Seg Neutrophils # Man Lymphocytes # (Manual) Monocytes # (Manual) Eosinophils # (Manual) PT INR Fibrinogen dRVVT Confirm Interp Factor V Activity POC ABG pH POC ABG pCO2 POC ABG pO2 Sodium Potassium Chloride Carbon Dioxide BUN Creatinine Glucose POC Glucose 114 H 141 H Lactic Acid Calcium Phosphorus Magnesium 2.70 H Direct Bilirubin ALT Alkaline Phosphatase Troponin T C-Reactive Protein Total Protein Albumin Triglycerides Cholesterol LDL Cholesterol Direct HDL Cholesterol Urine WBC (Auto) Urine Creatinine Urine Total Protein Vancomycin Trough Rheumatoid Factor Complement C4 Miscellaneous Test Crossmatch 09/21/16 09/21/16 09/21/16 07:45 07:45 10:01 WBC 13.8 H RBC 2.94 L Hgb 7.5 L Hct 23.5 L MCV MCH 26 L MCHC RDW 21.2 H Plt Count Lymph % (Auto) 6.9 L [place] % (Auto) 9.4 H Lymph # 0.9 L [place] # 1.3 H Seg Neutrophils % 83.2 H Seg Neuts % (Manual) Lymphocytes % (Manual) Monocytes % (Manual) Eosinophils % (Manual) Basophils % (Manual) Nucleated RBC % Seg Neutrophils # 11.5 H Seg Neutrophils # Man Lymphocytes # (Manual) Monocytes # (Manual) Eosinophils # (Manual) PT INR Fibrinogen dRVVT Confirm Interp Factor V Activity POC ABG pH 7.308 L POC ABG pCO2 31.9 L POC ABG pO2 148 H Sodium 147 H Potassium Chloride 114.2 H Carbon Dioxide 15 L BUN 120 H Creatinine 3.9 H Glucose 156 H POC Glucose Lactic Acid Calcium 8.2 L Phosphorus Magnesium Direct Bilirubin ALT Alkaline Phosphatase Troponin T C-Reactive Protein Total Protein Albumin Triglycerides Cholesterol LDL Cholesterol Direct HDL Cholesterol Urine WBC (Auto) Urine Creatinine Urine Total Protein Vancomycin Trough Rheumatoid Factor Complement C4 Miscellaneous Test Crossmatch 09/21/16 09/21/16 09/21/16 12:00 12:03 13:00 WBC RBC Hgb Hct MCV MCH MCHC RDW Plt Count Lymph % (Auto) [place] % (Auto) Lymph # [place] # Seg Neutrophils % Seg Neuts % (Manual) Lymphocytes % (Manual) Monocytes % (Manual) Eosinophils % (Manual) Basophils % (Manual) Nucleated RBC % Seg Neutrophils # Seg Neutrophils # Man Lymphocytes # (Manual) Monocytes # (Manual) Eosinophils # (Manual) PT INR Fibrinogen dRVVT Confirm Interp Factor V Activity POC ABG pH POC ABG pCO2 POC ABG pO2 Sodium Potassium Chloride Carbon Dioxide BUN Creatinine Glucose POC Glucose 163 H Lactic Acid Calcium Phosphorus Magnesium Direct Bilirubin ALT Alkaline Phosphatase Troponin T C-Reactive Protein Total Protein Albumin Triglycerides Cholesterol LDL Cholesterol Direct HDL Cholesterol Urine WBC (Auto) Urine Creatinine 54.8 H Urine Total Protein Vancomycin Trough 2.3 L Rheumatoid Factor Complement C4 Miscellaneous Test Crossmatch 09/21/16 09/21/16 09/22/16 16:51 23:17 06:27 WBC RBC Hgb Hct MCV MCH MCHC RDW Plt Count Lymph % (Auto) [place] % (Auto) Lymph # [place] # Seg Neutrophils % Seg Neuts % (Manual) Lymphocytes % (Manual) Monocytes % (Manual) Eosinophils % (Manual) Basophils % (Manual) Nucleated RBC % Seg Neutrophils # Seg Neutrophils # Man Lymphocytes # (Manual) Monocytes # (Manual) Eosinophils # (Manual) PT INR Fibrinogen dRVVT Confirm Interp Factor V Activity POC ABG pH POC ABG pCO2 POC ABG pO2 Sodium Potassium Chloride Carbon Dioxide BUN Creatinine Glucose POC Glucose 206 H 114 H 115 H Lactic Acid Calcium Phosphorus Magnesium Direct Bilirubin ALT Alkaline Phosphatase Troponin T C-Reactive Protein Total Protein Albumin Triglycerides Cholesterol LDL Cholesterol Direct HDL Cholesterol Urine WBC (Auto) Urine Creatinine Urine Total Protein Vancomycin Trough Rheumatoid Factor Complement C4 Miscellaneous Test Crossmatch 09/22/16 09/22/16 09/22/16 07:50 07:50 12:00 WBC 17.8 H RBC 3.04 L Hgb 8.0 L Hct 24.7 L MCV MCH 26 L MCHC RDW 21.6 H Plt Count Lymph % (Auto) [place] % (Auto) Lymph # [place] # Seg Neutrophils % Seg Neuts % (Manual) Lymphocytes % (Manual) Monocytes % (Manual) Eosinophils % (Manual) Basophils % (Manual) Nucleated RBC % Seg Neutrophils # Seg Neutrophils # Man Lymphocytes # (Manual) Monocytes # (Manual) Eosinophils # (Manual) PT INR Fibrinogen dRVVT Confirm Interp Factor V Activity POC ABG pH POC ABG pCO2 POC ABG pO2 Sodium 150 H Potassium Chloride 118.2 H Carbon Dioxide 14 L BUN 111 H Creatinine 3.7 H Glucose 157 H POC Glucose 183 H Lactic Acid Calcium Phosphorus Magnesium Direct Bilirubin ALT Alkaline Phosphatase Troponin T C-Reactive Protein Total Protein Albumin Triglycerides Cholesterol LDL Cholesterol Direct HDL Cholesterol Urine WBC (Auto) Urine Creatinine Urine Total Protein Vancomycin Trough Rheumatoid Factor Complement C4 Miscellaneous Test Crossmatch 09/22/16 09/22/16 09/23/16 17:29 23:10 05:00 WBC 19.2 H RBC 3.13 L Hgb 8.0 L Hct 25.2 L MCV MCH 26 L MCHC RDW 22.1 H Plt Count Lymph % (Auto) [place] % (Auto) Lymph # [place] # Seg Neutrophils % Seg Neuts % (Manual) 92.0 H Lymphocytes % (Manual) 3.0 L Monocytes % (Manual) Eosinophils % (Manual) Basophils % (Manual) Nucleated RBC % Seg Neutrophils # Seg Neutrophils # Man 17.7 H Lymphocytes # (Manual) 0.6 L Monocytes # (Manual) Eosinophils # (Manual) PT INR Fibrinogen dRVVT Confirm Interp Factor V Activity POC ABG pH POC ABG pCO2 POC ABG pO2 Sodium Potassium Chloride Carbon Dioxide BUN Creatinine Glucose POC Glucose 197 H 169 H Lactic Acid Calcium Phosphorus Magnesium Direct Bilirubin ALT Alkaline Phosphatase Troponin T C-Reactive Protein Total Protein Albumin Triglycerides Cholesterol LDL Cholesterol Direct HDL Cholesterol Urine WBC (Auto) Urine Creatinine Urine Total Protein Vancomycin Trough Rheumatoid Factor Complement C4 Miscellaneous Test Crossmatch 09/23/16 09/23/16 09/23/16 05:00 05:00 05:10 WBC RBC Hgb Hct MCV MCH MCHC RDW Plt Count Lymph % (Auto) [place] % (Auto) Lymph # [place] # Seg Neutrophils % Seg Neuts % (Manual) Lymphocytes % (Manual) Monocytes % (Manual) Eosinophils % (Manual) Basophils % (Manual) Nucleated RBC % Seg Neutrophils # Seg Neutrophils # Man Lymphocytes # (Manual) Monocytes # (Manual) Eosinophils # (Manual) PT INR Fibrinogen dRVVT Confirm Interp Factor V Activity POC ABG pH POC ABG pCO2 POC ABG pO2 Sodium 147 H Potassium 3.2 L Chloride 115.7 H Carbon Dioxide 13 L BUN 111 H Creatinine 3.8 H Glucose 194 H POC Glucose 188 H Lactic Acid Calcium 7.3 L D Phosphorus Magnesium Direct Bilirubin ALT Alkaline Phosphatase Troponin T C-Reactive Protein 3.20 H Total Protein Albumin Triglycerides Cholesterol LDL Cholesterol Direct HDL Cholesterol Urine WBC (Auto) Urine Creatinine Urine Total Protein Vancomycin Trough Rheumatoid Factor Complement C4 Miscellaneous Test Crossmatch 09/23/16 09/23/16 09/23/16 11:37 12:29 18:01 WBC RBC Hgb Hct MCV MCH MCHC RDW Plt Count Lymph % (Auto) [place] % (Auto) Lymph # [place] # Seg Neutrophils % Seg Neuts % (Manual) Lymphocytes % (Manual) Monocytes % (Manual) Eosinophils % (Manual) Basophils % (Manual) Nucleated RBC % Seg Neutrophils # Seg Neutrophils # Man Lymphocytes # (Manual) Monocytes # (Manual) Eosinophils # (Manual) PT INR Fibrinogen dRVVT Confirm Interp Factor V Activity POC ABG pH POC ABG pCO2 18.9 L POC ABG pO2 143 H Sodium Potassium Chloride Carbon Dioxide BUN Creatinine Glucose POC Glucose 153 H 108 H Lactic Acid Calcium Phosphorus Magnesium Direct Bilirubin ALT Alkaline Phosphatase Troponin T C-Reactive Protein Total Protein Albumin Triglycerides Cholesterol LDL Cholesterol Direct HDL Cholesterol Urine WBC (Auto) Urine Creatinine Urine Total Protein Vancomycin Trough Rheumatoid Factor Complement C4 Miscellaneous Test Crossmatch 09/23/16 09/23/16 09/24/16 21:19 23:43 05:16 WBC RBC Hgb Hct MCV MCH MCHC RDW Plt Count Lymph % (Auto) [place] % (Auto) Lymph # [place] # Seg Neutrophils % Seg Neuts % (Manual) Lymphocytes % (Manual) Monocytes % (Manual) Eosinophils % (Manual) Basophils % (Manual) Nucleated RBC % Seg Neutrophils # Seg Neutrophils # Man Lymphocytes # (Manual) Monocytes # (Manual) Eosinophils # (Manual) PT INR Fibrinogen dRVVT Confirm Interp Factor V Activity POC ABG pH POC ABG pCO2 17.3 L POC ABG pO2 112 H Sodium Potassium Chloride Carbon Dioxide BUN Creatinine Glucose POC Glucose 143 H 164 H Lactic Acid Calcium Phosphorus Magnesium Direct Bilirubin ALT Alkaline Phosphatase Troponin T C-Reactive Protein Total Protein Albumin Triglycerides Cholesterol LDL Cholesterol Direct HDL Cholesterol Urine WBC (Auto) Urine Creatinine Urine Total Protein Vancomycin Trough Rheumatoid Factor Complement C4 Miscellaneous Test Crossmatch 09/24/16 09/24/16 09/24/16 05:21 11:58 17:06 WBC RBC Hgb Hct MCV MCH MCHC RDW Plt Count Lymph % (Auto) [place] % (Auto) Lymph # [place] # Seg Neutrophils % Seg Neuts % (Manual) Lymphocytes % (Manual) Monocytes % (Manual) Eosinophils % (Manual) Basophils % (Manual) Nucleated RBC % Seg Neutrophils # Seg Neutrophils # Man Lymphocytes # (Manual) Monocytes # (Manual) Eosinophils # (Manual) PT INR Fibrinogen dRVVT Confirm Interp Factor V Activity POC ABG pH POC ABG pCO2 POC ABG pO2 Sodium Potassium Chloride Carbon Dioxide 10 L BUN 103 H Creatinine 4.3 H Glucose 163 H POC Glucose 173 H 167 H Lactic Acid Calcium 6.5 L Phosphorus Magnesium Direct Bilirubin ALT Alkaline Phosphatase Troponin T C-Reactive Protein Total Protein Albumin Triglycerides Cholesterol LDL Cholesterol Direct HDL Cholesterol Urine WBC (Auto) Urine Creatinine Urine Total Protein Vancomycin Trough Rheumatoid Factor Complement C4 Miscellaneous Test Crossmatch 09/24/16 09/24/16 09/24/16 20:15 21:02 23:48 WBC RBC Hgb Hct MCV MCH MCHC RDW Plt Count Lymph % (Auto) [place] % (Auto) Lymph # [place] # Seg Neutrophils % Seg Neuts % (Manual) Lymphocytes % (Manual) Monocytes % (Manual) Eosinophils % (Manual) Basophils % (Manual) Nucleated RBC % Seg Neutrophils # Seg Neutrophils # Man Lymphocytes # (Manual) Monocytes # (Manual) Eosinophils # (Manual) PT INR Fibrinogen dRVVT Confirm Interp Factor V Activity POC ABG pH 7.288 L POC ABG pCO2 30.2 L 21.5 L POC ABG pO2 32 L 39 L Sodium Potassium Chloride Carbon Dioxide BUN Creatinine Glucose POC Glucose 109 H Lactic Acid Calcium Phosphorus Magnesium Direct Bilirubin ALT Alkaline Phosphatase Troponin T C-Reactive Protein Total Protein Albumin Triglycerides Cholesterol LDL Cholesterol Direct HDL Cholesterol Urine WBC (Auto) Urine Creatinine Urine Total Protein Vancomycin Trough Rheumatoid Factor Complement C4 Miscellaneous Test Crossmatch 09/25/16 09/25/16 09/25/16 04:20 04:20 04:20 WBC RBC 2.58 L Hgb 7.0 L Hct 21.0 L MCV MCH 27 L MCHC RDW 23.8 H Plt Count Lymph % (Auto) [place] % (Auto) Lymph # [place] # Seg Neutrophils % Seg Neuts % (Manual) Lymphocytes % (Manual) 12.0 L Monocytes % (Manual) Eosinophils % (Manual) 7.0 H Basophils % (Manual) 2.0 H Nucleated RBC % Seg Neutrophils # Seg Neutrophils # Man Lymphocytes # (Manual) 0.9 L Monocytes # (Manual) Eosinophils # (Manual) 0.5 H PT INR Fibrinogen dRVVT Confirm Interp Factor V Activity POC ABG pH POC ABG pCO2 POC ABG pO2 Sodium Potassium Chloride Carbon Dioxide 15 L BUN 72 H Creatinine 3.8 H Glucose POC Glucose Lactic Acid Calcium 6.0 L Phosphorus 4.60 H Magnesium 1.60 L Direct Bilirubin ALT Alkaline Phosphatase Troponin T C-Reactive Protein Total Protein Albumin Triglycerides Cholesterol LDL Cholesterol Direct HDL Cholesterol Urine WBC (Auto) Urine Creatinine Urine Total Protein Vancomycin Trough Rheumatoid Factor Complement C4 Miscellaneous Test Crossmatch 09/25/16 09/25/16 09/25/16 04:57 08:02 10:30 WBC RBC Hgb Hct MCV MCH MCHC RDW Plt Count Lymph % (Auto) [place] % (Auto) Lymph # [place] # Seg Neutrophils % Seg Neuts % (Manual) Lymphocytes % (Manual) Monocytes % (Manual) Eosinophils % (Manual) Basophils % (Manual) Nucleated RBC % Seg Neutrophils # Seg Neutrophils # Man Lymphocytes # (Manual) Monocytes # (Manual) Eosinophils # (Manual) PT INR Fibrinogen dRVVT Confirm Interp Factor V Activity POC ABG pH POC ABG pCO2 24.7 L POC ABG pO2 152 H Sodium Potassium Chloride Carbon Dioxide BUN Creatinine Glucose POC Glucose 113 H Lactic Acid Calcium Phosphorus Magnesium Direct Bilirubin ALT Alkaline Phosphatase Troponin T C-Reactive Protein Total Protein Albumin Triglycerides Cholesterol LDL Cholesterol Direct HDL Cholesterol Urine WBC (Auto) Urine Creatinine Urine Total Protein Vancomycin Trough Rheumatoid Factor Complement C4 Miscellaneous Test Crossmatch See Detail 09/25/16 09/25/16 09/25/16 12:05 17:44 23:47 WBC RBC Hgb Hct MCV MCH MCHC RDW Plt Count Lymph % (Auto) [place] % (Auto) Lymph # [place] # Seg Neutrophils % Seg Neuts % (Manual) Lymphocytes % (Manual) Monocytes % (Manual) Eosinophils % (Manual) Basophils % (Manual) Nucleated RBC % Seg Neutrophils # Seg Neutrophils # Man Lymphocytes # (Manual) Monocytes # (Manual) Eosinophils # (Manual) PT INR Fibrinogen dRVVT Confirm Interp Factor V Activity POC ABG pH POC ABG pCO2 POC ABG pO2 Sodium Potassium Chloride Carbon Dioxide BUN Creatinine Glucose POC Glucose 117 H 119 H 150 H Lactic Acid Calcium Phosphorus Magnesium Direct Bilirubin ALT Alkaline Phosphatase Troponin T C-Reactive Protein Total Protein Albumin Triglycerides Cholesterol LDL Cholesterol Direct HDL Cholesterol Urine WBC (Auto) Urine Creatinine Urine Total Protein Vancomycin Trough Rheumatoid Factor Complement C4 Miscellaneous Test Crossmatch 09/26/16 09/26/16 09/26/16 04:25 04:25 04:25 WBC RBC 2.65 L Hgb 7.4 L Hct 21.6 L MCV MCH MCHC RDW 22.5 H Plt Count Lymph % (Auto) [place] % (Auto) Lymph # [place] # Seg Neutrophils % Seg Neuts % (Manual) Lymphocytes % (Manual) 6.0 L Monocytes % (Manual) Eosinophils % (Manual) 11.0 H Basophils % (Manual) Nucleated RBC % Seg Neutrophils # Seg Neutrophils # Man Lymphocytes # (Manual) 0.4 L Monocytes # (Manual) Eosinophils # (Manual) 0.6 H PT INR Fibrinogen dRVVT Confirm Interp Factor V Activity POC ABG pH POC ABG pCO2 POC ABG pO2 Sodium Potassium Chloride 97.0 L Carbon Dioxide 19 L BUN 43 H Creatinine 2.6 H Glucose 130 H POC Glucose Lactic Acid 4.40 H* Calcium 6.7 L Phosphorus Magnesium Direct Bilirubin ALT Alkaline Phosphatase Troponin T C-Reactive Protein Total Protein Albumin Triglycerides Cholesterol LDL Cholesterol Direct HDL Cholesterol Urine WBC (Auto) Urine Creatinine Urine Total Protein Vancomycin Trough Rheumatoid Factor Complement C4 Miscellaneous Test Crossmatch 09/26/16 09/26/16 09/26/16 05:20 11:44 12:12 WBC RBC Hgb Hct MCV MCH MCHC RDW Plt Count Lymph % (Auto) [place] % (Auto) Lymph # [place] # Seg Neutrophils % Seg Neuts % (Manual) Lymphocytes % (Manual) Monocytes % (Manual) Eosinophils % (Manual) Basophils % (Manual) Nucleated RBC % Seg Neutrophils # Seg Neutrophils # Man Lymphocytes # (Manual) Monocytes # (Manual) Eosinophils # (Manual) PT INR Fibrinogen dRVVT Confirm Interp Factor V Activity POC ABG pH POC ABG pCO2 27.0 L POC ABG pO2 69 L Sodium Potassium Chloride Carbon Dioxide BUN Creatinine Glucose POC Glucose 121 H 128 H Lactic Acid Calcium Phosphorus Magnesium Direct Bilirubin ALT Alkaline Phosphatase Troponin T C-Reactive Protein Total Protein Albumin Triglycerides Cholesterol LDL Cholesterol Direct HDL Cholesterol Urine WBC (Auto) Urine Creatinine Urine Total Protein Vancomycin Trough Rheumatoid Factor Complement C4 Miscellaneous Test Crossmatch 09/26/16 09/26/16 09/27/16 18:31 23:40 08:20 WBC RBC Hgb Hct MCV MCH MCHC RDW Plt Count Lymph % (Auto) [place] % (Auto) Lymph # [place] # Seg Neutrophils % Seg Neuts % (Manual) Lymphocytes % (Manual) Monocytes % (Manual) Eosinophils % (Manual) Basophils % (Manual) Nucleated RBC % Seg Neutrophils # Seg Neutrophils # Man Lymphocytes # (Manual) Monocytes # (Manual) Eosinophils # (Manual) PT INR Fibrinogen dRVVT Confirm Interp Factor V Activity POC ABG pH POC ABG pCO2 POC ABG pO2 Sodium Potassium Chloride Carbon Dioxide BUN Creatinine Glucose POC Glucose 120 H 133 H Lactic Acid 4.10 H* Calcium Phosphorus Magnesium Direct Bilirubin ALT Alkaline Phosphatase Troponin T C-Reactive Protein Total Protein Albumin Triglycerides Cholesterol LDL Cholesterol Direct HDL Cholesterol Urine WBC (Auto) Urine Creatinine Urine Total Protein Vancomycin Trough Rheumatoid Factor Complement C4 Miscellaneous Test Crossmatch 09/27/16 09/27/16 09/27/16 11:23 15:00 18:15 WBC RBC Hgb Hct MCV MCH MCHC RDW Plt Count Lymph % (Auto) [place] % (Auto) Lymph # [place] # Seg Neutrophils % Seg Neuts % (Manual) Lymphocytes % (Manual) Monocytes % (Manual) Eosinophils % (Manual) Basophils % (Manual) Nucleated RBC % Seg Neutrophils # Seg Neutrophils # Man Lymphocytes # (Manual) Monocytes # (Manual) Eosinophils # (Manual) PT INR Fibrinogen dRVVT Confirm Interp Factor V Activity POC ABG pH 7.459 H POC ABG pCO2 27.1 L POC ABG pO2 140 H Sodium Potassium Chloride Carbon Dioxide BUN Creatinine Glucose POC Glucose 114 H 127 H Lactic Acid Calcium Phosphorus Magnesium Direct Bilirubin ALT Alkaline Phosphatase Troponin T C-Reactive Protein Total Protein Albumin Triglycerides Cholesterol LDL Cholesterol Direct HDL Cholesterol Urine WBC (Auto) Urine Creatinine Urine Total Protein Vancomycin Trough Rheumatoid Factor Complement C4 Miscellaneous Test Crossmatch 09/27/16 09/27/16 09/28/16 Unknown Unknown 03:45 WBC RBC 2.49 L Hgb 6.8 L Hct 20.7 L MCV MCH 27 L MCHC RDW 22.1 H Plt Count Lymph % (Auto) [place] % (Auto) Lymph # [place] # Seg Neutrophils % Seg Neuts % (Manual) 32.0 L Lymphocytes % (Manual) 12.0 L Monocytes % (Manual) 11.0 H Eosinophils % (Manual) 10.0 H Basophils % (Manual) Nucleated RBC % Seg Neutrophils # Seg Neutrophils # Man Lymphocytes # (Manual) 1.0 L Monocytes # (Manual) 0.9 H Eosinophils # (Manual) 0.8 H PT INR Fibrinogen dRVVT Confirm Interp Factor V Activity POC ABG pH POC ABG pCO2 POC ABG pO2 Sodium 135 L 135 L Potassium 3.5 L Chloride 93.6 L 94.4 L Carbon Dioxide 17 L 21 L BUN 45 H 28 H Creatinine 3.3 H 2.5 H Glucose 106 H POC Glucose Lactic Acid Calcium 7.3 L 7.1 L Phosphorus Magnesium Direct Bilirubin ALT Alkaline Phosphatase Troponin T C-Reactive Protein Total Protein Albumin Triglycerides Cholesterol LDL Cholesterol Direct HDL Cholesterol Urine WBC (Auto) Urine Creatinine Urine Total Protein Vancomycin Trough Rheumatoid Factor Complement C4 Miscellaneous Test Crossmatch 09/28/16 09/28/16 09/28/16 03:45 07:25 11:58 WBC 13.3 H RBC 3.01 L Hgb 8.4 L Hct 25.0 L MCV MCH MCHC RDW 20.5 H Plt Count 128 L Lymph % (Auto) [place] % (Auto) Lymph # [place] # Seg Neutrophils % Seg Neuts % (Manual) Lymphocytes % (Manual) 7.0 L Monocytes % (Manual) Eosinophils % (Manual) 6.0 H Basophils % (Manual) Nucleated RBC % Seg Neutrophils # Seg Neutrophils # Man Lymphocytes # (Manual) 0.9 L Monocytes # (Manual) Eosinophils # (Manual) 0.8 H PT INR Fibrinogen dRVVT Confirm Interp Factor V Activity POC ABG pH POC ABG pCO2 POC ABG pO2 Sodium Potassium Chloride Carbon Dioxide BUN Creatinine Glucose POC Glucose 121 H Lactic Acid 4.50 H* Calcium Phosphorus Magnesium Direct Bilirubin ALT Alkaline Phosphatase Troponin T C-Reactive Protein Total Protein Albumin Triglycerides Cholesterol LDL Cholesterol Direct HDL Cholesterol Urine WBC (Auto) Urine Creatinine Urine Total Protein Vancomycin Trough Rheumatoid Factor Complement C4 Miscellaneous Test Crossmatch 09/29/16 09/29/16 09/29/16 06:45 06:45 06:45 WBC 14.9 H RBC 2.74 L Hgb 7.6 L Hct 23.2 L MCV MCH MCHC RDW 20.5 H Plt Count 81 L Lymph % (Auto) [place] % (Auto) Lymph # [place] # Seg Neutrophils % Seg Neuts % (Manual) 81.0 H Lymphocytes % (Manual) 4.0 L Monocytes % (Manual) Eosinophils % (Manual) Basophils % (Manual) Nucleated RBC % Seg Neutrophils # Seg Neutrophils # Man 12.1 H Lymphocytes # (Manual) 0.6 L Monocytes # (Manual) Eosinophils # (Manual) PT INR Fibrinogen dRVVT Confirm Interp Factor V Activity POC ABG pH POC ABG pCO2 POC ABG pO2 Sodium 133 L Potassium 3.4 L Chloride 92.5 L Carbon Dioxide 21 L BUN 33 H Creatinine 3.0 H Glucose POC Glucose Lactic Acid Calcium 6.6 L Phosphorus Magnesium 1.40 L Direct Bilirubin 0.9 H ALT Alkaline Phosphatase Troponin T C-Reactive Protein Total Protein 4.3 L Albumin 1.3 L Triglycerides Cholesterol LDL Cholesterol Direct HDL Cholesterol Urine WBC (Auto) Urine Creatinine Urine Total Protein Vancomycin Trough Rheumatoid Factor Complement C4 Miscellaneous Test Crossmatch 09/29/16 09/29/16 09/30/16 17:52 20:12 00:07 WBC RBC Hgb Hct MCV MCH MCHC RDW Plt Count Lymph % (Auto) [place] % (Auto) Lymph # [place] # Seg Neutrophils % Seg Neuts % (Manual) Lymphocytes % (Manual) Monocytes % (Manual) Eosinophils % (Manual) Basophils % (Manual) Nucleated RBC % Seg Neutrophils # Seg Neutrophils # Man Lymphocytes # (Manual) Monocytes # (Manual) Eosinophils # (Manual) PT INR Fibrinogen dRVVT Confirm Interp Factor V Activity POC ABG pH POC ABG pCO2 POC ABG pO2 Sodium Potassium Chloride Carbon Dioxide BUN Creatinine Glucose POC Glucose 50 L 51 L Lactic Acid Calcium Phosphorus Magnesium Direct Bilirubin ALT Alkaline Phosphatase Troponin T 0.204 H* C-Reactive Protein Total Protein Albumin Triglycerides Cholesterol 31 L LDL Cholesterol Direct 4 L HDL Cholesterol 3 L Urine WBC (Auto) Urine Creatinine Urine Total Protein Vancomycin Trough Rheumatoid Factor Complement C4 Miscellaneous Test Crossmatch 09/30/16 09/30/16 09/30/16 01:30 05:15 06:10 WBC RBC Hgb Hct MCV MCH MCHC RDW Plt Count Lymph % (Auto) [place] % (Auto) Lymph # [place] # Seg Neutrophils % Seg Neuts % (Manual) Lymphocytes % (Manual) Monocytes % (Manual) Eosinophils % (Manual) Basophils % (Manual) Nucleated RBC % Seg Neutrophils # Seg Neutrophils # Man Lymphocytes # (Manual) Monocytes # (Manual) Eosinophils # (Manual) PT INR Fibrinogen dRVVT Confirm Interp Factor V Activity POC ABG pH POC ABG pCO2 POC ABG pO2 Sodium 133 L Potassium 3.2 L Chloride 93.2 L Carbon Dioxide 19 L BUN 36 H Creatinine 3.2 H Glucose 104 H POC Glucose 167 H 146 H Lactic Acid Calcium 6.4 L Phosphorus Magnesium 1.60 L Direct Bilirubin ALT Alkaline Phosphatase Troponin T C-Reactive Protein Total Protein Albumin Triglycerides Cholesterol LDL Cholesterol Direct HDL Cholesterol Urine WBC (Auto) Urine Creatinine Urine Total Protein Vancomycin Trough Rheumatoid Factor Complement C4 Miscellaneous Test Crossmatch 09/30/16 09/30/16 09/30/16 11:26 13:39 18:38 WBC RBC Hgb Hct MCV MCH MCHC RDW Plt Count Lymph % (Auto) [place] % (Auto) Lymph # [place] # Seg Neutrophils % Seg Neuts % (Manual) Lymphocytes % (Manual) Monocytes % (Manual) Eosinophils % (Manual) Basophils % (Manual) Nucleated RBC % Seg Neutrophils # Seg Neutrophils # Man Lymphocytes # (Manual) Monocytes # (Manual) Eosinophils # (Manual) PT INR Fibrinogen dRVVT Confirm Interp Factor V Activity POC ABG pH 7.479 H POC ABG pCO2 29.8 L POC ABG pO2 117 H Sodium Potassium Chloride Carbon Dioxide BUN Creatinine Glucose POC Glucose 140 H 122 H Lactic Acid Calcium Phosphorus Magnesium Direct Bilirubin ALT Alkaline Phosphatase Troponin T C-Reactive Protein Total Protein Albumin Triglycerides Cholesterol LDL Cholesterol Direct HDL Cholesterol Urine WBC (Auto) Urine Creatinine Urine Total Protein Vancomycin Trough Rheumatoid Factor Complement C4 Miscellaneous Test Crossmatch 10/01/16 10/01/16 10/01/16 06:00 06:00 12:37 WBC 12.6 H RBC 2.75 L Hgb 7.3 L Hct 23.3 L MCV MCH 27 L MCHC RDW 20.6 H Plt Count 72 L Lymph % (Auto) [place] % (Auto) Lymph # [place] # Seg Neutrophils % Seg Neuts % (Manual) 31.0 L Lymphocytes % (Manual) 8.0 L Monocytes % (Manual) Eosinophils % (Manual) Basophils % (Manual) Nucleated RBC % 3.0 H Seg Neutrophils # Seg Neutrophils # Man Lymphocytes # (Manual) 1.0 L Monocytes # (Manual) Eosinophils # (Manual) PT INR Fibrinogen dRVVT Confirm Interp Factor V Activity POC ABG pH POC ABG pCO2 POC ABG pO2 Sodium 127 L Potassium Chloride 86.8 L Carbon Dioxide 20 L BUN 42 H Creatinine 3.5 H Glucose POC Glucose 65 L Lactic Acid Calcium 7.0 L Phosphorus Magnesium Direct Bilirubin ALT Alkaline Phosphatase Troponin T C-Reactive Protein Total Protein Albumin Triglycerides Cholesterol LDL Cholesterol Direct HDL Cholesterol Urine WBC (Auto) Urine Creatinine Urine Total Protein Vancomycin Trough Rheumatoid Factor Complement C4 Miscellaneous Test Crossmatch 10/01/16 10/01/16 10/02/16 17:39 23:32 00:59 WBC RBC Hgb Hct MCV MCH MCHC RDW Plt Count Lymph % (Auto) [place] % (Auto) Lymph # [place] # Seg Neutrophils % Seg Neuts % (Manual) Lymphocytes % (Manual) Monocytes % (Manual) Eosinophils % (Manual) Basophils % (Manual) Nucleated RBC % Seg Neutrophils # Seg Neutrophils # Man Lymphocytes # (Manual) Monocytes # (Manual) Eosinophils # (Manual) PT INR Fibrinogen dRVVT Confirm Interp Factor V Activity POC ABG pH POC ABG pCO2 POC ABG pO2 Sodium Potassium Chloride Carbon Dioxide BUN Creatinine Glucose POC Glucose 107 H 52 L 145 H Lactic Acid Calcium Phosphorus Magnesium Direct Bilirubin ALT Alkaline Phosphatase Troponin T C-Reactive Protein Total Protein Albumin Triglycerides Cholesterol LDL Cholesterol Direct HDL Cholesterol Urine WBC (Auto) Urine Creatinine Urine Total Protein Vancomycin Trough Rheumatoid Factor Complement C4 Miscellaneous Test Crossmatch 10/02/16 10/02/16 10/02/16 10:30 10:50 10:50 WBC 14.7 H RBC 2.76 L Hgb 7.4 L Hct 23.6 L MCV MCH 27 L MCHC RDW 20.2 H Plt Count 79 L Lymph % (Auto) [place] % (Auto) Lymph # [place] # Seg Neutrophils % Seg Neuts % (Manual) 86.0 H Lymphocytes % (Manual) 6.0 L Monocytes % (Manual) Eosinophils % (Manual) Basophils % (Manual) Nucleated RBC % Seg Neutrophils # Seg Neutrophils # Man 12.6 H Lymphocytes # (Manual) 0.9 L Monocytes # (Manual) Eosinophils # (Manual) PT INR Fibrinogen dRVVT Confirm Interp Factor V Activity POC ABG pH 7.486 H POC ABG pCO2 30.1 L POC ABG pO2 108 H Sodium 131 L Potassium 3.4 L Chloride 89.9 L Carbon Dioxide BUN 26 H Creatinine 2.6 H Glucose POC Glucose Lactic Acid Calcium 7.0 L Phosphorus Magnesium Direct Bilirubin ALT Alkaline Phosphatase Troponin T C-Reactive Protein Total Protein Albumin Triglycerides Cholesterol LDL Cholesterol Direct HDL Cholesterol Urine WBC (Auto) Urine Creatinine Urine Total Protein Vancomycin Trough Rheumatoid Factor Complement C4 Miscellaneous Test Crossmatch 10/02/16 10/03/16 10/03/16 23:45 00:45 05:10 WBC 12.9 H RBC 2.77 L Hgb 7.6 L Hct 23.7 L MCV MCH 27 L MCHC RDW 19.7 H Plt Count 89 L Lymph % (Auto) [place] % (Auto) Lymph # [place] # Seg Neutrophils % Seg Neuts % (Manual) Lymphocytes % (Manual) 8.0 L Monocytes % (Manual) Eosinophils % (Manual) Basophils % (Manual) Nucleated RBC % Seg Neutrophils # 11.9 H Seg Neutrophils # Man Lymphocytes # (Manual) 1.0 L Monocytes # (Manual) Eosinophils # (Manual) PT INR Fibrinogen dRVVT Confirm Interp Factor V Activity POC ABG pH POC ABG pCO2 POC ABG pO2 Sodium Potassium Chloride Carbon Dioxide BUN Creatinine Glucose POC Glucose 55 L 199 H Lactic Acid Calcium Phosphorus Magnesium Direct Bilirubin ALT Alkaline Phosphatase Troponin T C-Reactive Protein Total Protein Albumin Triglycerides Cholesterol LDL Cholesterol Direct HDL Cholesterol Urine WBC (Auto) Urine Creatinine Urine Total Protein Vancomycin Trough Rheumatoid Factor Complement C4 Miscellaneous Test Crossmatch 10/03/16 10/03/16 10/03/16 05:10 12:14 13:18 WBC RBC Hgb Hct MCV MCH MCHC RDW Plt Count Lymph % (Auto) [place] % (Auto) Lymph # [place] # Seg Neutrophils % Seg Neuts % (Manual) Lymphocytes % (Manual) Monocytes % (Manual) Eosinophils % (Manual) Basophils % (Manual) Nucleated RBC % Seg Neutrophils # Seg Neutrophils # Man Lymphocytes # (Manual) Monocytes # (Manual) Eosinophils # (Manual) PT INR Fibrinogen dRVVT Confirm Interp Factor V Activity POC ABG pH POC ABG pCO2 POC ABG pO2 Sodium 129 L Potassium 3.3 L Chloride 88.8 L Carbon Dioxide 20 L BUN 29 H Creatinine 2.8 H Glucose POC Glucose 68 L 127 H Lactic Acid Calcium 7.2 L Phosphorus Magnesium Direct Bilirubin ALT Alkaline Phosphatase Troponin T C-Reactive Protein Total Protein Albumin Triglycerides Cholesterol LDL Cholesterol Direct HDL Cholesterol Urine WBC (Auto) Urine Creatinine Urine Total Protein Vancomycin Trough Rheumatoid Factor Complement C4 Miscellaneous Test Crossmatch 10/03/16 10/03/16 10/03/16 14:42 18:21 19:09 WBC RBC Hgb Hct MCV MCH MCHC RDW Plt Count Lymph % (Auto) [place] % (Auto) Lymph # [place] # Seg Neutrophils % Seg Neuts % (Manual) Lymphocytes % (Manual) Monocytes % (Manual) Eosinophils % (Manual) Basophils % (Manual) Nucleated RBC % Seg Neutrophils # Seg Neutrophils # Man Lymphocytes # (Manual) Monocytes # (Manual) Eosinophils # (Manual) PT INR Fibrinogen dRVVT Confirm Interp Factor V Activity POC ABG pH 7.499 H POC ABG pCO2 28.4 L POC ABG pO2 44 L Sodium Potassium Chloride Carbon Dioxide BUN Creatinine Glucose POC Glucose 64 L 205 H Lactic Acid Calcium Phosphorus Magnesium Direct Bilirubin ALT Alkaline Phosphatase Troponin T C-Reactive Protein Total Protein Albumin Triglycerides Cholesterol LDL Cholesterol Direct HDL Cholesterol Urine WBC (Auto) Urine Creatinine Urine Total Protein Vancomycin Trough Rheumatoid Factor Complement C4 Miscellaneous Test Crossmatch 10/03/16 10/04/16 10/04/16 23:33 04:18 06:30 WBC RBC 2.54 L Hgb 7.1 L Hct 21.7 L MCV MCH MCHC RDW 19.5 H Plt Count 76 L Lymph % (Auto) [place] % (Auto) Lymph # [place] # Seg Neutrophils % Seg Neuts % (Manual) 88.0 H Lymphocytes % (Manual) 6.0 L Monocytes % (Manual) Eosinophils % (Manual) Basophils % (Manual) Nucleated RBC % Seg Neutrophils # Seg Neutrophils # Man 8.8 H Lymphocytes # (Manual) 0.6 L Monocytes # (Manual) Eosinophils # (Manual) PT INR Fibrinogen dRVVT Confirm Interp Factor V Activity POC ABG pH 7.461 H POC ABG pCO2 33.6 L POC ABG pO2 211 H Sodium Potassium Chloride Carbon Dioxide BUN Creatinine Glucose POC Glucose 136 H Lactic Acid Calcium Phosphorus Magnesium Direct Bilirubin ALT Alkaline Phosphatase Troponin T C-Reactive Protein Total Protein Albumin Triglycerides Cholesterol LDL Cholesterol Direct HDL Cholesterol Urine WBC (Auto) Urine Creatinine Urine Total Protein Vancomycin Trough Rheumatoid Factor Complement C4 Miscellaneous Test Crossmatch 10/04/16 10/04/16 10/04/16 06:30 11:45 17:54 WBC RBC Hgb Hct MCV MCH MCHC RDW Plt Count Lymph % (Auto) [place] % (Auto) Lymph # [place] # Seg Neutrophils % Seg Neuts % (Manual) Lymphocytes % (Manual) Monocytes % (Manual) Eosinophils % (Manual) Basophils % (Manual) Nucleated RBC % Seg Neutrophils # Seg Neutrophils # Man Lymphocytes # (Manual) Monocytes # (Manual) Eosinophils # (Manual) PT INR Fibrinogen dRVVT Confirm Interp Factor V Activity POC ABG pH POC ABG pCO2 POC ABG pO2 Sodium 128 L Potassium Chloride 87.4 L Carbon Dioxide 20 L BUN 34 H Creatinine 2.9 H Glucose 127 H POC Glucose 158 H 160 H Lactic Acid Calcium 7.4 L Phosphorus Magnesium Direct Bilirubin ALT Alkaline Phosphatase Troponin T C-Reactive Protein Total Protein Albumin Triglycerides Cholesterol LDL Cholesterol Direct HDL Cholesterol Urine WBC (Auto) Urine Creatinine Urine Total Protein Vancomycin Trough Rheumatoid Factor Complement C4 Miscellaneous Test Crossmatch 10/04/16 10/05/16 10/05/16 23:25 04:30 05:00 WBC RBC 2.64 L Hgb 7.5 L Hct 22.6 L MCV MCH MCHC RDW 19.3 H Plt Count 80 L Lymph % (Auto) [place] % (Auto) Lymph # [place] # Seg Neutrophils % Seg Neuts % (Manual) Lymphocytes % (Manual) 12.0 L Monocytes % (Manual) Eosinophils % (Manual) Basophils % (Manual) Nucleated RBC % Seg Neutrophils # Seg Neutrophils # Man Lymphocytes # (Manual) Monocytes # (Manual) Eosinophils # (Manual) PT INR Fibrinogen dRVVT Confirm Interp Factor V Activity POC ABG pH 7.475 H POC ABG pCO2 33.3 L POC ABG pO2 140 H Sodium Potassium Chloride Carbon Dioxide BUN Creatinine Glucose POC Glucose 141 H Lactic Acid Calcium Phosphorus Magnesium Direct Bilirubin ALT Alkaline Phosphatase Troponin T C-Reactive Protein Total Protein Albumin Triglycerides Cholesterol LDL Cholesterol Direct HDL Cholesterol Urine WBC (Auto) Urine Creatinine Urine Total Protein Vancomycin Trough Rheumatoid Factor Complement C4 Miscellaneous Test Crossmatch 10/05/16 10/05/16 10/05/16 05:00 05:09 12:58 WBC RBC Hgb Hct MCV MCH MCHC RDW Plt Count Lymph % (Auto) [place] % (Auto) Lymph # [place] # Seg Neutrophils % Seg Neuts % (Manual) Lymphocytes % (Manual) Monocytes % (Manual) Eosinophils % (Manual) Basophils % (Manual) Nucleated RBC % Seg Neutrophils # Seg Neutrophils # Man Lymphocytes # (Manual) Monocytes # (Manual) Eosinophils # (Manual) PT INR Fibrinogen dRVVT Confirm Interp Factor V Activity POC ABG pH POC ABG pCO2 POC ABG pO2 Sodium 131 L Potassium Chloride 94.0 L Carbon Dioxide 20 L BUN 22 H Creatinine 2.0 H Glucose 123 H POC Glucose 166 H 179 H Lactic Acid Calcium 7.7 L Phosphorus 2.20 L D Magnesium Direct Bilirubin ALT Alkaline Phosphatase Troponin T C-Reactive Protein Total Protein Albumin Triglycerides Cholesterol LDL Cholesterol Direct HDL Cholesterol Urine WBC (Auto) Urine Creatinine Urine Total Protein Vancomycin Trough Rheumatoid Factor Complement C4 Miscellaneous Test Crossmatch 10/05/16 10/05/16 10/05/16 15:50 18:53 23:12 WBC RBC Hgb Hct MCV MCH MCHC RDW Plt Count Lymph % (Auto) [place] % (Auto) Lymph # [place] # Seg Neutrophils % Seg Neuts % (Manual) Lymphocytes % (Manual) Monocytes % (Manual) Eosinophils % (Manual) Basophils % (Manual) Nucleated RBC % Seg Neutrophils # Seg Neutrophils # Man Lymphocytes # (Manual) Monocytes # (Manual) Eosinophils # (Manual) PT INR Fibrinogen dRVVT Confirm Interp Factor V Activity POC ABG pH POC ABG pCO2 POC ABG pO2 Sodium Potassium Chloride Carbon Dioxide BUN Creatinine Glucose POC Glucose 150 H 164 H Lactic Acid Calcium Phosphorus Magnesium Direct Bilirubin ALT Alkaline Phosphatase Troponin T C-Reactive Protein Total Protein Albumin Triglycerides Cholesterol LDL Cholesterol Direct HDL Cholesterol Urine WBC (Auto) Urine Creatinine Urine Total Protein Vancomycin Trough Rheumatoid Factor Complement C4 Miscellaneous Test Crossmatch See Detail 10/06/16 10/06/16 10/06/16 03:50 03:50 04:53 WBC RBC 3.00 L Hgb 8.6 L Hct 25.8 L MCV MCH MCHC RDW 17.9 H Plt Count 65 L Lymph % (Auto) [place] % (Auto) Lymph # [place] # Seg Neutrophils % Seg Neuts % (Manual) 30.0 L Lymphocytes % (Manual) 5.0 L Monocytes % (Manual) Eosinophils % (Manual) Basophils % (Manual) Nucleated RBC % Seg Neutrophils # Seg Neutrophils # Man Lymphocytes # (Manual) 0.4 L Monocytes # (Manual) Eosinophils # (Manual) PT INR Fibrinogen dRVVT Confirm Interp Factor V Activity POC ABG pH 7.310 L POC ABG pCO2 49.0 H POC ABG pO2 Sodium 133 L Potassium Chloride 95.9 L Carbon Dioxide BUN 26 H Creatinine 2.0 H Glucose 116 H POC Glucose Lactic Acid Calcium 7.8 L Phosphorus Magnesium Direct Bilirubin ALT Alkaline Phosphatase Troponin T C-Reactive Protein Total Protein Albumin Triglycerides Cholesterol LDL Cholesterol Direct HDL Cholesterol Urine WBC (Auto) Urine Creatinine Urine Total Protein Vancomycin Trough Rheumatoid Factor Complement C4 Miscellaneous Test Crossmatch 10/06/16 10/06/16 10/06/16 05:23 11:52 18:34 WBC RBC Hgb Hct MCV MCH MCHC RDW Plt Count Lymph % (Auto) [place] % (Auto) Lymph # [place] # Seg Neutrophils % Seg Neuts % (Manual) Lymphocytes % (Manual) Monocytes % (Manual) Eosinophils % (Manual) Basophils % (Manual) Nucleated RBC % Seg Neutrophils # Seg Neutrophils # Man Lymphocytes # (Manual) Monocytes # (Manual) Eosinophils # (Manual) PT INR Fibrinogen dRVVT Confirm Interp Factor V Activity POC ABG pH POC ABG pCO2 POC ABG pO2 Sodium Potassium Chloride Carbon Dioxide BUN Creatinine Glucose POC Glucose 126 H 116 H 129 H Lactic Acid Calcium Phosphorus Magnesium Direct Bilirubin ALT Alkaline Phosphatase Troponin T C-Reactive Protein Total Protein Albumin Triglycerides Cholesterol LDL Cholesterol Direct HDL Cholesterol Urine WBC (Auto) Urine Creatinine Urine Total Protein Vancomycin Trough Rheumatoid Factor Complement C4 Miscellaneous Test Crossmatch 10/07/16 10/07/16 10/07/16 03:45 05:00 10:00 WBC 17.0 H RBC 2.68 L Hgb 7.3 L Hct 25.3 L MCV MCH 27 L MCHC 29 L RDW 19.6 H Plt Count 74 L Lymph % (Auto) [place] % (Auto) Lymph # [place] # Seg Neutrophils % Seg Neuts % (Manual) Lymphocytes % (Manual) 12.0 L Monocytes % (Manual) Eosinophils % (Manual) Basophils % (Manual) Nucleated RBC % 4.0 H Seg Neutrophils # Seg Neutrophils # Man 10.7 H Lymphocytes # (Manual) Monocytes # (Manual) Eosinophils # (Manual) PT INR Fibrinogen dRVVT Confirm Interp Factor V Activity POC ABG pH POC ABG pCO2 POC ABG pO2 Sodium 130 L Potassium 3.2 L Chloride 93.9 L Carbon Dioxide 20 L BUN 44 H Creatinine 2.7 H Glucose 129 H POC Glucose Lactic Acid Calcium 7.4 L Phosphorus Magnesium Direct Bilirubin ALT 6 L Alkaline Phosphatase 195 H Troponin T C-Reactive Protein Total Protein 4.9 L Albumin 1.0 L Triglycerides Cholesterol LDL Cholesterol Direct HDL Cholesterol Urine WBC (Auto) Urine Creatinine Urine Total Protein Vancomycin Trough Rheumatoid Factor Complement C4 Miscellaneous Test Flexitest 1 H Crossmatch 10/07/16 10/07/16 10/07/16 10:00 11:24 18:10 WBC RBC Hgb Hct MCV MCH MCHC RDW Plt Count Lymph % (Auto) [place] % (Auto) Lymph # [place] # Seg Neutrophils % Seg Neuts % (Manual) Lymphocytes % (Manual) Monocytes % (Manual) Eosinophils % (Manual) Basophils % (Manual) Nucleated RBC % Seg Neutrophils # Seg Neutrophils # Man Lymphocytes # (Manual) Monocytes # (Manual) Eosinophils # (Manual) PT INR Fibrinogen dRVVT Confirm Interp Factor V Activity POC ABG pH POC ABG pCO2 POC ABG pO2 Sodium Potassium Chloride Carbon Dioxide BUN Creatinine Glucose POC Glucose 116 H 130 H Lactic Acid Calcium Phosphorus Magnesium Direct Bilirubin ALT Alkaline Phosphatase Troponin T C-Reactive Protein 19.40 H Total Protein Albumin Triglycerides Cholesterol LDL Cholesterol Direct HDL Cholesterol Urine WBC (Auto) Urine Creatinine Urine Total Protein Vancomycin Trough Rheumatoid Factor Complement C4 Miscellaneous Test Crossmatch 10/07/16 10/08/16 10/08/16 18:30 00:00 04:00 WBC RBC Hgb Hct MCV MCH MCHC RDW Plt Count Lymph % (Auto) [place] % (Auto) Lymph # [place] # Seg Neutrophils % Seg Neuts % (Manual) Lymphocytes % (Manual) Monocytes % (Manual) Eosinophils % (Manual) Basophils % (Manual) Nucleated RBC % Seg Neutrophils # Seg Neutrophils # Man Lymphocytes # (Manual) Monocytes # (Manual) Eosinophils # (Manual) PT INR Fibrinogen dRVVT Confirm Interp Factor V Activity POC ABG pH POC ABG pCO2 POC ABG pO2 Sodium 132 L Potassium 3.3 L Chloride 93.6 L Carbon Dioxide 17 L BUN 59 H Creatinine 2.7 H Glucose 121 H POC Glucose 122 H Lactic Acid Calcium 7.6 L Phosphorus Magnesium Direct Bilirubin ALT Alkaline Phosphatase Troponin T C-Reactive Protein Total Protein Albumin Triglycerides Cholesterol LDL Cholesterol Direct HDL Cholesterol Urine WBC (Auto) > 182.0 H Urine Creatinine Urine Total Protein Vancomycin Trough Rheumatoid Factor Complement C4 Miscellaneous Test Crossmatch 10/08/16 10/08/16 10/08/16 04:30 05:30 11:51 WBC RBC 5.15 H Hgb 14.4 H D Hct 44.5 H D MCV MCH MCHC RDW 19.5 H Plt Count 56 L Lymph % (Auto) [place] % (Auto) Lymph # [place] # Seg Neutrophils % Seg Neuts % (Manual) 24.0 L Lymphocytes % (Manual) 8.0 L Monocytes % (Manual) Eosinophils % (Manual) Basophils % (Manual) Nucleated RBC % 9.0 H Seg Neutrophils # Seg Neutrophils # Man Lymphocytes # (Manual) 0.7 L Monocytes # (Manual) Eosinophils # (Manual) PT INR Fibrinogen dRVVT Confirm Interp Factor V Activity POC ABG pH POC ABG pCO2 POC ABG pO2 Sodium Potassium Chloride Carbon Dioxide BUN Creatinine Glucose POC Glucose 125 H 150 H Lactic Acid Calcium Phosphorus Magnesium Direct Bilirubin ALT Alkaline Phosphatase Troponin T C-Reactive Protein Total Protein Albumin Triglycerides Cholesterol LDL Cholesterol Direct HDL Cholesterol Urine WBC (Auto) Urine Creatinine Urine Total Protein Vancomycin Trough Rheumatoid Factor Complement C4 Miscellaneous Test Crossmatch 10/08/16 10/08/16 10/08/16 12:49 17:07 19:30 WBC RBC Hgb 7.1 L D Hct 22.4 L D MCV MCH MCHC RDW Plt Count Lymph % (Auto) [place] % (Auto) Lymph # [place] # Seg Neutrophils % Seg Neuts % (Manual) Lymphocytes % (Manual) Monocytes % (Manual) Eosinophils % (Manual) Basophils % (Manual) Nucleated RBC % Seg Neutrophils # Seg Neutrophils # Man Lymphocytes # (Manual) Monocytes # (Manual) Eosinophils # (Manual) PT INR Fibrinogen dRVVT Confirm Interp Factor V Activity POC ABG pH POC ABG pCO2 28.2 L POC ABG pO2 111 H Sodium Potassium Chloride Carbon Dioxide BUN Creatinine Glucose POC Glucose 145 H Lactic Acid Calcium Phosphorus Magnesium Direct Bilirubin ALT Alkaline Phosphatase Troponin T C-Reactive Protein Total Protein Albumin Triglycerides Cholesterol LDL Cholesterol Direct HDL Cholesterol Urine WBC (Auto) Urine Creatinine Urine Total Protein Vancomycin Trough Rheumatoid Factor Complement C4 Miscellaneous Test Crossmatch 10/08/16 10/09/16 10/09/16 19:30 03:45 03:45 WBC 12.6 H RBC 2.36 L Hgb 6.7 L Hct 21.1 L MCV MCH MCHC RDW 19.5 H Plt Count 75 L Lymph % (Auto) [place] % (Auto) Lymph # [place] # Seg Neutrophils % Seg Neuts % (Manual) Lymphocytes % (Manual) Monocytes % (Manual) 10.0 H Eosinophils % (Manual) Basophils % (Manual) Nucleated RBC % 3.0 H Seg Neutrophils # Seg Neutrophils # Man Lymphocytes # (Manual) Monocytes # (Manual) 1.3 H Eosinophils # (Manual) PT 18.0 H INR 1.41 H Fibrinogen dRVVT Confirm Interp Factor V Activity POC ABG pH POC ABG pCO2 POC ABG pO2 Sodium 135 L Potassium Chloride Carbon Dioxide 17 L BUN 81 H Creatinine 3.2 H Glucose 109 H POC Glucose Lactic Acid Calcium 7.4 L Phosphorus 4.60 H D Magnesium Direct Bilirubin ALT Alkaline Phosphatase Troponin T C-Reactive Protein Total Protein Albumin Triglycerides Cholesterol LDL Cholesterol Direct HDL Cholesterol Urine WBC (Auto) Urine Creatinine Urine Total Protein Vancomycin Trough Rheumatoid Factor Complement C4 Miscellaneous Test Crossmatch 10/09/16 10/09/16 10/09/16 03:45 05:14 07:20 WBC RBC Hgb Hct MCV MCH MCHC RDW Plt Count Lymph % (Auto) [place] % (Auto) Lymph # [place] # Seg Neutrophils % Seg Neuts % (Manual) Lymphocytes % (Manual) Monocytes % (Manual) Eosinophils % (Manual) Basophils % (Manual) Nucleated RBC % Seg Neutrophils # Seg Neutrophils # Man Lymphocytes # (Manual) Monocytes # (Manual) Eosinophils # (Manual) PT 19.0 H INR 1.51 H Fibrinogen dRVVT Confirm Interp Factor V Activity POC ABG pH POC ABG pCO2 POC ABG pO2 Sodium Potassium Chloride Carbon Dioxide BUN Creatinine Glucose POC Glucose 151 H Lactic Acid Calcium Phosphorus Magnesium Direct Bilirubin ALT Alkaline Phosphatase Troponin T C-Reactive Protein Total Protein Albumin Triglycerides Cholesterol LDL Cholesterol Direct HDL Cholesterol Urine WBC (Auto) Urine Creatinine Urine Total Protein Vancomycin Trough Rheumatoid Factor Complement C4 Miscellaneous Test Crossmatch See Detail 10/09/16 10/09/16 10/09/16 11:46 16:20 16:43 WBC RBC Hgb 7.2 L Hct 22.2 L MCV MCH MCHC RDW Plt Count Lymph % (Auto) [place] % (Auto) Lymph # [place] # Seg Neutrophils % Seg Neuts % (Manual) Lymphocytes % (Manual) Monocytes % (Manual) Eosinophils % (Manual) Basophils % (Manual) Nucleated RBC % Seg Neutrophils # Seg Neutrophils # Man Lymphocytes # (Manual) Monocytes # (Manual) Eosinophils # (Manual) PT INR Fibrinogen dRVVT Confirm Interp Factor V Activity POC ABG pH POC ABG pCO2 POC ABG pO2 Sodium Potassium Chloride Carbon Dioxide BUN Creatinine Glucose POC Glucose 133 H 141 H Lactic Acid Calcium Phosphorus Magnesium Direct Bilirubin ALT Alkaline Phosphatase Troponin T C-Reactive Protein Total Protein Albumin Triglycerides Cholesterol LDL Cholesterol Direct HDL Cholesterol Urine WBC (Auto) Urine Creatinine Urine Total Protein Vancomycin Trough Rheumatoid Factor Complement C4 Miscellaneous Test Crossmatch 10/10/16 10/10/16 10/10/16 05:00 05:00 11:19 WBC 18.5 H RBC 2.19 L Hgb 6.4 L Hct 19.6 L* MCV MCH MCHC RDW 19.3 H Plt Count 93 L Lymph % (Auto) [place] % (Auto) Lymph # [place] # Seg Neutrophils % Seg Neuts % (Manual) Lymphocytes % (Manual) 10.0 L Monocytes % (Manual) Eosinophils % (Manual) Basophils % (Manual) Nucleated RBC % 4.0 H Seg Neutrophils # Seg Neutrophils # Man 11.3 H Lymphocytes # (Manual) Monocytes # (Manual) Eosinophils # (Manual) PT INR Fibrinogen dRVVT Confirm Interp Factor V Activity POC ABG pH POC ABG pCO2 POC ABG pO2 Sodium Potassium 5.7 H D Chloride Carbon Dioxide 16 L BUN 94 H Creatinine 3.1 H Glucose 131 H POC Glucose 153 H Lactic Acid Calcium 8.2 L Phosphorus 5.10 H Magnesium 2.40 H Direct Bilirubin 0.3 H ALT < 5 L Alkaline Phosphatase 319 H Troponin T C-Reactive Protein Total Protein 5.1 L Albumin 1.0 L Triglycerides Cholesterol LDL Cholesterol Direct HDL Cholesterol Urine WBC (Auto) Urine Creatinine Urine Total Protein Vancomycin Trough Rheumatoid Factor Complement C4 Miscellaneous Test Crossmatch 10/10/16 10/10/16 10/11/16 17:50 23:30 04:15 WBC RBC Hgb Hct MCV MCH MCHC RDW Plt Count Lymph % (Auto) [place] % (Auto) Lymph # [place] # Seg Neutrophils % Seg Neuts % (Manual) Lymphocytes % (Manual) Monocytes % (Manual) Eosinophils % (Manual) Basophils % (Manual) Nucleated RBC % Seg Neutrophils # Seg Neutrophils # Man Lymphocytes # (Manual) Monocytes # (Manual) Eosinophils # (Manual) PT INR Fibrinogen dRVVT Confirm Interp Factor V Activity POC ABG pH POC ABG pCO2 POC ABG pO2 Sodium Potassium Chloride 96.4 L Carbon Dioxide 21 L BUN 57 H Creatinine 2.1 H Glucose 151 H POC Glucose 146 H 141 H Lactic Acid Calcium 8.3 L Phosphorus Magnesium Direct Bilirubin ALT Alkaline Phosphatase Troponin T C-Reactive Protein Total Protein Albumin Triglycerides Cholesterol LDL Cholesterol Direct HDL Cholesterol Urine WBC (Auto) Urine Creatinine Urine Total Protein Vancomycin Trough Rheumatoid Factor Complement C4 Miscellaneous Test Crossmatch 10/11/16 10/11/16 10/11/16 04:15 04:15 05:30 WBC 28.3 H RBC 3.12 L Hgb 9.3 L Hct 28.7 L D MCV MCH MCHC RDW 17.7 H Plt Count 128 L Lymph % (Auto) [place] % (Auto) Lymph # [place] # Seg Neutrophils % Seg Neuts % (Manual) Lymphocytes % (Manual) Monocytes % (Manual) Eosinophils % (Manual) Basophils % (Manual) Nucleated RBC % Seg Neutrophils # Seg Neutrophils # Man Lymphocytes # (Manual) Monocytes # (Manual) Eosinophils # (Manual) PT INR Fibrinogen dRVVT Confirm Interp Factor V Activity POC ABG pH POC ABG pCO2 POC ABG pO2 Sodium Potassium Chloride Carbon Dioxide BUN Creatinine Glucose POC Glucose 167 H Lactic Acid Calcium Phosphorus Magnesium Direct Bilirubin ALT Alkaline Phosphatase Troponin T C-Reactive Protein 15.80 H Total Protein Albumin Triglycerides Cholesterol LDL Cholesterol Direct HDL Cholesterol Urine WBC (Auto) Urine Creatinine Urine Total Protein Vancomycin Trough Rheumatoid Factor Complement C4 Miscellaneous Test Crossmatch Allied health notes reviewed: RT
--- NOTE | 2016-10-11 16:56 | Progress Note ---
Assessment and Plan gastric perforation. pt continues to have copious drainage that is purulent. continue drainage an monitor for improvement. continue supportive care. continue abx per ID. may consider CT with PO contrast in 1-2 weeks to evaluate repair. sooner if needed for ID w/u. will follow. Subjective Date of service: 10/11/16 Patient Reports: Positive: blood in stool, afebrile, other Objective Vital Signs - 12hr 10/11/16 10/11/16 10/11/16 05:00 06:00 07:00 Temperature Pulse Rate 106 H 101 H 102 H Pulse Rate [ From Monitor] Respiratory 27 H 29 H 29 H Rate Respiratory Rate [ Generalized] Blood Pressure 146/81 130/72 146/79 O2 Sat by Pulse 100 99 99 Oximetry O2 Sat by Pulse 99 Oximetry [ Assessment] 10/11/16 10/11/16 10/11/16 08:00 09:00 09:36 Temperature 99.0 F Pulse Rate 103 H 103 H 106 H Pulse Rate [ 113 H From Monitor] Respiratory 26 H 30 H 24 Rate Respiratory Rate [ Generalized] Blood Pressure 141/72 143/77 147/82 O2 Sat by Pulse 98 99 98 Oximetry O2 Sat by Pulse Oximetry [ Assessment] 10/11/16 10/11/16 10/11/16 10:00 11:00 12:00 Temperature 99.3 F Pulse Rate 102 H 99 H 102 H Pulse Rate [ 117 H From Monitor] Respiratory 31 H 30 H 32 H Rate Respiratory 30 H Rate [ Generalized] Blood Pressure 132/76 124/64 130/70 O2 Sat by Pulse 98 99 100 Oximetry O2 Sat by Pulse Oximetry [ Assessment] 10/11/16 10/11/16 10/11/16 13:00 13:56 14:00 Temperature Pulse Rate 108 H 108 H 99 H Pulse Rate [ From Monitor] Respiratory 28 H 27 H 30 H Rate Respiratory Rate [ Generalized] Blood Pressure 161/91 163/100 136/77 O2 Sat by Pulse 98 99 99 Oximetry O2 Sat by Pulse Oximetry [ Assessment] 10/11/16 10/11/16 15:00 16:00 Temperature Pulse Rate 118 H 117 H Pulse Rate [ From Monitor] Respiratory 32 H 35 H Rate Respiratory Rate [ Generalized] Blood Pressure 122/86 164/91 O2 Sat by Pulse 100 100 Oximetry O2 Sat by Pulse 100 Oximetry [ Assessment] - General physical appearance no distress, chronically ill, obese - Respiratory normal respiratory effort (on cpap) - Abdomen soft, tender, bowel sounds hypoactive, surgical scars (clean and dry), other ( drain with purulent material) - Psychiatric other (non communicative) - Labs 10/11/16 04:15 10/11/16 04:15 Diabetes panel 10/11/16 Range/Units 04:15 Sodium 137 (137-145) mmol/L Potassium 4.3 D (3.6-5.0) mmol/L Chloride 96.4 L (98-107) mmol/L Carbon Dioxide 21 L (22-30) mmol/L BUN 57 H (7-17) mg/dL Creatinine 2.1 H (0.7-1.2) mg/dL Glucose 151 H (65-100) mg/dL Calcium 8.3 L (8.4-10.2) mg/dL Calcium panel 10/11/16 Range/Units 04:15 Calcium 8.3 L (8.4-10.2) mg/dL Phosphorus 3.40 D (2.5-4.5) mg/dL Pituitary panel 10/11/16 Range/Units 04:15 Sodium 137 (137-145) mmol/L Potassium 4.3 D (3.6-5.0) mmol/L Chloride 96.4 L (98-107) mmol/L Carbon Dioxide 21 L (22-30) mmol/L BUN 57 H (7-17) mg/dL Creatinine 2.1 H (0.7-1.2) mg/dL Glucose 151 H (65-100) mg/dL Calcium 8.3 L (8.4-10.2) mg/dL Adrenal panel 10/11/16 Range/Units 04:15 Sodium 137 (137-145) mmol/L Potassium 4.3 D (3.6-5.0) mmol/L Chloride 96.4 L (98-107) mmol/L Carbon Dioxide 21 L (22-30) mmol/L BUN 57 H (7-17) mg/dL Creatinine 2.1 H (0.7-1.2) mg/dL Glucose 151 H (65-100) mg/dL Calcium 8.3 L (8.4-10.2) mg/dL
[2016-10-11] MEDS: CORDARONE 900 MG in D5W 482 ML IV SCH (19:35)
[2016-10-11] MEDS ORDERED: TPN ADULT 2,016 ML IV SCH (20:00)
[2016-10-11] MEDS: MYCAMINE 100 MG in NACL 0.9% 100 ML IV SCH (20:48)
[2016-10-12] MEDS: ZOSYN/NS 2.25 GM/50ML 2.25 GM/50 ML BAG IV SCH ×2 (01:59→05:34)
[2016-10-12] MEDS: HumuLIN R SUB-Q SCH ×3 (02:00→14:42)
[2016-10-12] MEDS: PROTONIX IV SCH ×3 (02:00→21:48)
[2016-10-12 06:13] LABS: Hematocrit 26.8 % (30.3-42.9); Hemoglobin 8.8 gm/dl (10.1-14.3); Mean Corpuscular HGB Conc 33 % (30-34); Mean Corpuscular Hemoglobin 31 pg (28-32); Mean Corpuscular Volume 93 fl (79-97); Platelet Count 167 K/mm3 (140-440); Red Blood Count 2.88 M/mm3 (3.65-5.03); Red Cell Distribution Width 17.8 % (13.2-15.2)
[2016-10-12 06:35] LABS: BUN/Creatinine Ratio 29.6; Calcium 8.2 mg/dL (8.4-10.2)
--- NOTE | 2016-10-12 09:36 | Gastroenterology Progress Note ---
Assessment and Plan 1.hematochezia -HGB 8.8 -continue to monitor H&H and transfuse as needed -BM x 1 last night with brown stool- no signs of active bleeding overnight or this morning per nursing -etiology of source of bleeding unclear- possible vaginal? -continue PPI -NPO with NG tube to LIS with gree output -stool WBC and C-diff negative -given pt's current condition will continue to monitor and treat conservatively -recommend obtaining a bleeding scan if further episodes of bleeding develop -given pt's condition (recent gastric wedge resection with perforation from dislodged PEG), no recommendations for an endoscopic evaluation at this time unless life-threatening bleeding develops Subjective Date of service: 10/12/16 Principal diagnosis: hematochezia Interval history: Patient intubated, opens eyes but unable to follow commands. No active signs of bleeding overnight or this am per nursing. BM x 1 last night with brown stool. Objective - Constitutional Vitals: Temp Pulse Resp BP Pulse Ox 99.5 F 98 H 24 164/87 100 10/12/16 08:00 10/12/16 07:00 10/12/16 07:00 10/12/16 07:00 10/12/16 07:00 General appearance: other (intubated, nonverbal, awake, unable to follow commands) - Respiratory Respiratory: bilateral: other (coarse) - Cardiovascular Rhythm: other (tachycardia) Heart Sounds: Present: S1 & S2 - Gastrointestinal General gastrointestinal: Present: soft, non-distended, hypoactive bowel sounds , other (JUAN drain and abd dresssing intact) - Labs CBC & Chem 7: 10/12/16 04:40 10/12/16 04:40 Labs: Laboratory Results - last 24 hr 10/07/16 10/09/16 10/11/16 03:45 07:20 04:15 WBC RBC Hgb Hct MCV MCH MCHC RDW Plt Count Sodium Potassium Chloride Carbon Dioxide Anion Gap BUN Creatinine Estimated GFR BUN/Creatinine Ratio Glucose POC Glucose Calcium Phosphorus C-Reactive Protein 15.80 H Miscellaneous Test Flexitest 1 H Blood Type A POSITIVE Antibody Screen Negative Crossmatch See Detail 10/11/16 10/11/16 10/11/16 11:40 15:49 23:57 WBC RBC Hgb Hct MCV MCH MCHC RDW Plt Count Sodium Potassium Chloride Carbon Dioxide Anion Gap BUN Creatinine Estimated GFR BUN/Creatinine Ratio Glucose POC Glucose 139 H 168 H 161 H Calcium Phosphorus C-Reactive Protein Miscellaneous Test Blood Type Antibody Screen Crossmatch 10/12/16 10/12/16 10/12/16 04:40 04:40 05:44 WBC 22.5 H RBC 2.88 L Hgb 8.8 L Hct 26.8 L MCV 93 MCH 31 MCHC 33 RDW 17.8 H Plt Count 167 Sodium 134 L Potassium 3.7 Chloride 93.0 L Carbon Dioxide 22 Anion Gap 23 BUN 74 H Creatinine 2.5 H Estimated GFR 25 BUN/Creatinine Ratio 29.60 Glucose 137 H POC Glucose 158 H Calcium 8.2 L Phosphorus 3.00 C-Reactive Protein Miscellaneous Test Blood Type Antibody Screen Crossmatch
--- NOTE | 2016-10-12 09:58 | Progress Note ---
Assessment and Plan Assessment and plan: Assessment and plan: Acute hypoxic respiratory failure On mechanical ventilation Status post trach Acute massive left MCA CVA Status post TPA Aspirin/statin Supportive care Toxic metabolic Encephalopathy Multifactorial. Still not following commands Dislodged PEG Status post wedge gastrectomy, repair of gastric perforation, abdominal washout and drain placement Surgery following Severe sepsis with septic shock UTI/candidemia/peritonitis due to gastric perforation from dislodged PEG Off pressors She is on Zosyn and micafungin Antibiotic/antifungals per ID recommendation Toxic metabolic encephalopathy,unresponsive. neurology following Acute blood loss anemia requiring multiple PRBC transfusions. Hemoglobin 9.3 today after PRBC transfusion. Repeat stool occult blood positive. GI Physician following Monitor H&H closely, Fever due to sepsis Acute on chronic kidney disease, had dialysis [id number]. Creatinine worse today, 2.5. Electrolyte imbalances Replete, recheck Paroxysmal A. fib Status post failed conversion on 09/25 Continue Amiodarone drip No anticoagulation due to anemia/thrombocytopenia, massive CVA Diabetes mellitus type 2 Insulin/SSI Leukocytosis. some improvement today. Severe protein caloric malnutrition Currently on TPN Extensive back skin peeling Thrombocytopenia DVT prophylaxis SCDs, no pharmacological agent given anemia requiring multiple PRBC transfusions , thrombocytopenia, massive stroke Hyperkalemia. Give Insulin. For dialysis today Full code status Prognosis guarded Had a family meeting Monday in which I discussed plan. Present at meeting was the Risk management staff, environmental programs manager and myself, patient's son and patients ' sister. History Interval history: Patient with multi-organ failure, Fever yesterday and this morning, Still does not follow commands Hospitalist Physical - Physical exam Narrative exam: Gen appearance: Trach, not in acute distress HEENT: Atraumatic Neck: Tracheostomy Lungs: Clear to auscultation bilaterally, no crackles or wheezes Heart :S1 and S2 irregular, no murmurs, rubs or gallop Abdomen: Soft, surgical drain, dressing over left upper quadrant, bowel sounds present Extremities : bilateral edema, upper and lower ext Neuro: Does not follow commands - Constitutional Vitals: Temp Pulse Resp BP Pulse Ox 99.5 F 102 H 26 H 171/92 100 10/12/16 08:00 10/12/16 09:00 10/12/16 09:00 10/12/16 09:00 10/12/16 09:00 General appearance: Present: mild distress, obese, other (on vent, non- responsive) Results - Labs CBC & Chem 7: 10/12/16 04:40 10/12/16 04:40 Labs: Laboratory Last Values WBC 22.5 K/mm3 (4.5-11.0) H 10/12/16 04:40 RBC 2.88 M/mm3 (3.65-5.03) L 10/12/16 04:40 Hgb 8.8 gm/dl (10.1-14.3) L 10/12/16 04:40 Hct 26.8 % (30.3-42.9) L 10/12/16 04:40 MCV 93 fl (79-97) 10/12/16 04:40 MCH 31 pg (28-32) 10/12/16 04:40 MCHC 33 % (30-34) 10/12/16 04:40 RDW 17.8 % (13.2-15.2) H 10/12/16 04:40 Plt Count 167 K/mm3 (140-440) 10/12/16 04:40 Lymph % (Auto) 6.9 % (13.4-35.0) L 09/21/16 07:45 [place] % (Auto) 0.5 % (0.0-7.3) 10/03/16 05:10 Eos % (Auto) 1.3 % (0.0-4.3) 10/03/16 05:10 Baso % (Auto) 0.2 % (0.0-1.8) 09/21/16 07:45 Lymph # 0.9 K/mm3 (1.2-5.4) L 09/21/16 07:45 [place] # 0.1 K/mm3 (0.0-0.8) 10/03/16 05:10 Eos # 0.2 K/mm3 (0.0-0.4) 10/03/16 05:10 Baso # 0.0 K/mm3 (0.0-0.1) 10/03/16 05:10 Add Manual Diff Complete 10/10/16 05:00 Total Counted 100 10/10/16 05:00 Seg Neutrophils % Event Planning Manager 10/03/16 05:10 Seg Neuts % (Manual) 61.0 % (40.0-70.0) 10/10/16 05:00 Band Neutrophils % 24.0 % 10/10/16 05:00 Lymphocytes % (Manual) 10.0 % (13.4-35.0) L 10/10/16 05:00 Reactive Lymphs % (Man) 0 % 10/10/16 05:00 Monocytes % (Manual) 2.0 % (0.0-7.3) 10/10/16 05:00 Eosinophils % (Manual) 0 % (0.0-4.3) 10/10/16 05:00 Basophils % (Manual) 0 % (0.0-1.8) 10/10/16 05:00 Metamyelocytes % 3.0 % 10/10/16 05:00 Myelocytes % 0 % 10/10/16 05:00 Promyelocytes % 0 % 10/10/16 05:00 Blast Cells % 0 % 10/10/16 05:00 Nucleated RBC % 4.0 % (0.0-0.9) H 10/10/16 05:00 Seg Neutrophils # 11.9 K/mm3 (1.8-7.7) H 10/03/16 05:10 Seg Neutrophils # Man 11.3 K/mm3 (1.8-7.7) H 10/10/16 05:00 Band Neutrophils # 4.4 K/mm3 10/10/16 05:00 Lymphocytes # (Manual) 1.9 K/mm3 (1.2-5.4) 10/10/16 05:00 Abs React Lymphs (Man) 0.0 K/mm3 10/10/16 05:00 Monocytes # (Manual) 0.4 K/mm3 (0.0-0.8) 10/10/16 05:00 Eosinophils # (Manual) 0.0 K/mm3 (0.0-0.4) 10/10/16 05:00 Basophils # (Manual) 0.0 K/mm3 (0.0-0.1) 10/10/16 05:00 Metamyelocytes # 0.6 K/mm3 10/10/16 05:00 Myelocytes # 0.0 K/mm3 10/10/16 05:00 Promyelocytes # 0.0 K/mm3 10/10/16 05:00 Blast Cells # 0.0 K/mm3 10/10/16 05:00 Pathologist Review 09/13/16 04:00 WBC Morphology Not Reportable 10/10/16 05:00 Hypersegmented Neuts Not Reportable 10/10/16 05:00 Hyposegmented Neuts Not Reportable 10/10/16 05:00 Hypogranular Neuts Not Reportable 10/10/16 05:00 Smudge Cells Not Reportable 10/10/16 05:00 Toxic Granulation Not Reportable 10/10/16 05:00 Toxic Vacuolation Not Reportable 10/10/16 05:00 Dohle Bodies Not Reportable 10/10/16 05:00 Pelger-Huet Anomaly Not Reportable 10/10/16 05:00 Jasmina Rods Not Reportable 10/10/16 05:00 Platelet Estimate Consistent w auto 10/10/16 05:00 Clumped Platelets Not Reportable 10/10/16 05:00 Plt Clumps, EDTA Not Reportable 10/10/16 05:00 Large Platelets Not Reportable 10/10/16 05:00 Giant Platelets Not Reportable 10/10/16 05:00 Platelet Satelliting Not Reportable 10/10/16 05:00 Plt Morphology Comment Not Reportable 10/10/16 05:00 RBC Morphology Not Reportable 10/10/16 05:00 Dimorphic RBCs Not Reportable 10/10/16 05:00 Polychromasia Rare 10/10/16 05:00 Hypochromasia 1+ 10/10/16 05:00 Poikilocytosis Not Reportable 10/10/16 05:00 Anisocytosis 1+ 10/10/16 05:00 Microcytosis Not Reportable 10/10/16 05:00 Macrocytosis 1+ 10/10/16 05:00 Spherocytes Not Reportable 10/10/16 05:00 Pappenheimer Bodies Not Reportable 10/10/16 05:00 Sickle Cells Not Reportable 10/10/16 05:00 Target Cells Not Reportable 10/10/16 05:00 Tear Drop Cells Not Reportable 10/10/16 05:00 Ovalocytes Not Reportable 10/10/16 05:00 Stomatocytes Few 10/06/16 03:50 Helmet Cells Not Reportable 10/10/16 05:00 [place] Bodies Not Reportable 10/10/16 05:00 [place] Rings Not Reportable 10/10/16 05:00 Chuck Cells Not Reportable 10/10/16 05:00 Bite Cells Not Reportable 10/10/16 05:00 Crenated Cell Not Reportable 10/10/16 05:00 Elliptocytes Not Reportable 10/10/16 05:00 Acanthocytes (Spur) Not Reportable 10/10/16 05:00 Rouleaux Not Reportable 10/10/16 05:00 Hemoglobin C Crystals Not Reportable 10/10/16 05:00 Schistocytes Not Reportable 10/10/16 05:00 Malaria parasites Not Reportable 10/10/16 05:00 ESR > 140.0 mm/Hr (0-20) 09/08/16 11:48 Jun Bodies Not Reportable 10/10/16 05:00 Hem Pathologist Commnt No 10/10/16 05:00 PT 19.0 Sec. (12.2-14.9) H 10/09/16 03:45 INR 1.51 (0.87-1.13) H 10/09/16 03:45 APTT 33.0 Sec. (24.2-36.6) 10/09/16 03:45 Thrombin Time 16.8 Sec. (15.1-19.6) 09/03/16 00:10 Fibrinogen 750 mg/dl (211-480) H 09/08/16 11:48 Lupus Anticoagulant see below 09/12/16 09:59 LA PTT Baseline See scanned report 09/12/16 09:59 dRVVT Confirm Interp Positive (Negative) H 09/12/16 09:59 dRVVT Screen 50:50 See scanned report 09/12/16 09:59 dRVVT Mix Interpret See scanned report 09/12/16 09:59 Protein C Antigen 122 % (70-140) 09/08/16 15:35 Free Protein S 97 % normal (50-147) 09/08/16 15:35 Total Protein S 109 % (70-140) 09/08/16 15:35 Antithrombin III Ag 100 % (80-120) 09/08/16 15:35 Heparin Anti-Xa, Unfract Negative (Negative) 09/29/16 13:35 Factor V Activity 182 % (65-150) H 09/08/16 15:35 POC ABG pH 7.437 (7.35-7.45) 10/08/16 12:49 POC ABG pCO2 28.2 (35-45) L 10/08/16 12:49 POC ABG pO2 111 (80-105) H 10/08/16 12:49 POC ABG HCO3 19.0 10/08/16 12:49 POC ABG Total CO2 20 10/08/16 12:49 POC ABG O2 Sat 99 10/08/16 12:49 POC ABG Base Excess -5 10/08/16 12:49 FiO2 28 % 10/08/16 12:49 Sodium 134 mmol/L (137-145) L 10/12/16 04:40 Potassium 3.7 mmol/L (3.6-5.0) 10/12/16 04:40 Chloride 93.0 mmol/L (98-107) L 10/12/16 04:40 Carbon Dioxide 22 mmol/L (22-30) 10/12/16 04:40 Anion Gap 23 mmol/L 10/12/16 04:40 BUN 74 mg/dL (7-17) H 10/12/16 04:40 Creatinine 2.5 mg/dL (0.7-1.2) H 10/12/16 04:40 Estimated GFR 25 ml/min 10/12/16 04:40 BUN/Creatinine Ratio 29.60 % 10/12/16 04:40 Glucose 137 mg/dL (65-100) H 10/12/16 04:40 POC Glucose 158 (70-105) H 10/12/16 05:44 Osmolality 351 Mosm/kg 09/16/16 11:47 Lactic Acid 4.50 mmol/L (0.7-2.0) H* 09/28/16 07:25 Calcium 8.2 mg/dL (8.4-10.2) L 10/12/16 04:40 Phosphorus 3.00 mg/dL (2.5-4.5) 10/12/16 04:40 Magnesium 1.90 mg/dL (1.7-2.3) 10/11/16 04:15 Total Bilirubin 0.40 mg/dL (0.1-1.2) 10/10/16 05:00 Direct Bilirubin 0.3 mg/dL (0-0.2) H 10/10/16 05:00 Indirect Bilirubin 0.1 mg/dL 10/10/16 05:00 AST 21 units/L (5-40) 10/10/16 05:00 ALT < 5 units/L (7-56) L 10/10/16 05:00 Alkaline Phosphatase 319 units/L (35-129) H 10/10/16 05:00 Ammonia 27.0 umol/L (25-60) 09/07/16 08:37 Total Creatine Kinase 121 units/L (30-135) 09/29/16 20:12 CK-MB (CK-2) < 1.0 ng/mL (0.0-4.0) 09/29/16 20:12 CK-MB (CK-2) Rel Index 0.8 (0-4) 09/29/16 20:12 Troponin T 0.204 ng/mL (0.00-0.029) H* 09/29/16 20:12 C-Reactive Protein 15.80 mg/dL (0.00-1.30) H 10/11/16 04:15 Total Protein 5.1 g/dL (6.3-8.2) L 10/10/16 05:00 Albumin 1.0 g/dL (3.9-5) L 10/10/16 05:00 Albumin/Globulin Ratio 0.2 % 10/10/16 05:00 Triglycerides 137 mg/dL (2-149) 09/29/16 20:12 Cholesterol 31 mg/dL (50-199) L 09/29/16 20:12 LDL Cholesterol Direct 4 mg/dL (50-130) L 09/29/16 20:12 HDL Cholesterol 3 mg/dL (40-59) L 09/29/16 20:12 Cholesterol/HDL Ratio 10.33 % 09/29/16 20:12 Angiotensin Convert Enz See scanned report 09/08/16 11:48 Serotonin Release Assay See scanned report 09/29/16 13:35 TSH 1.010 mlU/mL (0.270-4.200) 09/07/16 08:37 HCG, Qual Negative (Negative) 09/03/16 00:10 Urine Color [place] (Yellow) 10/07/16 18:30 Urine Turbidity Turbid (Clear) 10/07/16 18:30 Urine pH 7.0 (5.0-7.0) 10/07/16 18:30 Ur Specific [place] 1.012 (1.003-1.030) 10/07/16 18:30 Urine Protein 100 mg/dl mg/dL (Negative) 10/07/16 18:30 Urine Glucose (UA) Neg mg/dL (Negative) 10/07/16 18:30 Urine Ketones Neg mg/dL (Negative) 10/07/16 18:30 Urine Blood Lg (Negative) 10/07/16 18:30 Urine Nitrite Neg (Negative) 10/07/16 18:30 Urine Bilirubin Neg (Negative) 10/07/16 18:30 Urine Urobilinogen < 2.0 mg/dL (<2.0) 10/07/16 18:30 Ur Leukocyte Esterase Lg (Negative) 10/07/16 18:30 Urine WBC (Auto) > 182.0 /HPF (0.0-6.0) H 10/07/16 18:30 Urine RBC (Auto) > 182.0 /HPF (0.0-6.0) 10/07/16 18:30 U Epithel Cells (Auto) 1.0 /HPF (0-13.0) 10/07/16 18:30 Urine Bacteria (Auto) 3+ /HPF (Negative) 10/07/16 18:30 Urine WBC Clumps 2+ /HPF 09/07/16 02:47 Hyaline Casts 4 /LPF 09/07/16 02:47 Urine Mucus Few /HPF 10/07/16 18:30 Urine Yeast (Budding) 3+ /HPF 10/07/16 18:30 Urine Eosinophils None seen (None Seen) 09/07/16 16:00 Urine Total Volume 1350 09/21/16 12:00 Urine Creatinine 54.8 mg/dL (0.1-20.0) H 09/21/16 12:00 Height (in) 67.0 inches 09/21/16 12:00 Weight (lb) 92.0 lbs 09/21/16 12:00 Creatinine Clearance 15 09/21/16 12:00 Urine Sodium 36 mEq/L 09/16/16 19:19 Urine Total Protein 16 mg/dL (5-11.8) H 09/16/16 19:19 Vancomycin Trough 2.3 ug/mL (5.0-20.0) L 09/21/16 13:00 Random Vancomycin 2.3 ug/mL (0-40.0) 09/09/16 03:00 Urine Opiates Screen Presumptive negative 09/03/16 15:11 Urine Methadone Screen Presumptive positive 09/03/16 15:11 Ur Barbiturates Screen Presumptive positive 09/03/16 15:11 Ur Phencyclidine Scrn Presumptive negative 09/03/16 15:11 Ur Amphetamines Screen Presumptive negative 09/03/16 15:11 U Benzodiazepines Scrn Presumptive negative 09/03/16 15:11 Urine Cocaine Screen Presumptive negative 09/03/16 15:11 U Marijuana (THC) Screen Presumptive positive 09/03/16 15:11 Drugs of Abuse Note Disclamer 09/03/16 15:11 Rheumatoid Factor 24 IU/ml (0-13) H 09/08/16 11:48 SAHIL Screen Negative (Negative) 09/07/16 09:20 Proteinase 3 (PR3) Ab <1.0 AI (<1.0) 09/07/16 09:20 Myeloperoxidase Ab <1.0 AI (<1.0) 09/07/16 09:20 Sjogren's Antibody <1.0 AI (<1.0) 09/08/16 15:35 Scl-70 Scleroderma Ab <1.0 AI (<1.0) 09/08/16 15:35 Centromere B Antibody <1.0 AI (<1.0) 09/08/16 12:02 Heparin-induced Plt Ab Negative (Negative) 09/29/16 13:35 UF Heparin High Dose 11 % Release 09/29/16 13:35 SUDHIR UFH Low Dose 0.1 6 % Release 09/29/16 13:35 SUDHIR UFH Low Dose 0.5 8 % Release 09/29/16 13:35 Cardiolipid IgG Ab <14 GPL (<=14) 09/12/16 09:59 Cardiolipid IgA Ab <11 APL (<=11) 09/12/16 09:59 Cardiolipid IgM Ab <12 MPL (<=12) 09/12/16 09:59 Complement C3 148 mg/dL (90-180) 09/07/16 09:20 Complement C4 58 mg/dL (16-47) H 09/07/16 09:20 RPR Nonreactive (Nonreactive) 09/08/16 11:48 Hepatitis A IgM Ab Non-reactive (NonReactive) 09/24/16 14:40 Hep Bs Antigen Non-reactive (Negative) 09/24/16 14:40 Hep B Core IgM Ab Non-reactive (NonReactive) 09/24/16 14:40 Hepatitis C Antibody Non-reactive (NonReactive) 09/24/16 14:40 HIV 1&2 Antibody Rapid Non react (Non React) 09/08/16 11:48 HIV P24 Antigen Non react (Non React) 09/08/16 11:48 Miscellaneous Test Flexitest 1 H 10/07/16 03:45 Blood Type A POSITIVE 10/09/16 07:20 Antibody Screen Negative 10/09/16 07:20 DELORIS Antibody Screen Negative 09/25/16 10:30 Crossmatch See Detail 10/09/16 07:20
--- NOTE | 2016-10-12 11:43 | Cat Scan Report ---
CT ABDOMEN PELVIS WITHOUT CONTRAST History: Abdominal pain, worsening sepsis after left brisk upper gastric repair, abscess. Technique: Helical CT is 1.25 mm intervals with sagittal and coronal reformatted images. No IV or oral contrast. Findings: Compared to 10/03/16. There is borderline cardiomegaly, small bilateral pleural effusions and partial atelectasis of the lower lobes which are unchanged. There is small ascites which appears relatively stable or slightly improved. Peritoneal drain enters the abdomen from the right side and tracks inferiorly to terminate in the right side of the pelvis. No IV contrast was administered but there is no convincing evidence for abdominal abscess. A nasogastric tube is coiled within the stomach. A suture line is noted along the anterior gastric wall. There is no obvious leak or free air in this area. The small bowel loops are slightly thickened but this has improved since 10/03/16. No evidence for bowel obstruction, pneumatosis or other abnormality. The liver and spleen remain within normal limits. Cholecystectomy changes. The pancreas, kidneys and adrenal glands are unremarkable. The aorta is normal caliber. The uterus and adnexa are unremarkable. The bladder is empty and contains a Herndon catheter. There is diffuse subcutaneous edema consistent with mild anasarca. The bony structures are unremarkable. Impression: Slightly limited exam without IV and oral contrast but there is no evidence for abscess, leak or free air. No clear explanation for worsening sepsis on noncontrast CT. Mild volume overload/anasarca. Small ascites. Slightly thickened small bowel loops which have improved since the previous exam.
--- NOTE | 2016-10-12 11:47 | Progress Note ---
Assessment and Plan Assessment: 1) Recurrent Sepsis: still leukocytosis and new fever overnight. -Current sepsis etiology - peritonitis from gastric perforation +/- UTI. -Initial sepsis etiology - presumed aspiration pneumonia, and another septic episode on 09/23 from Candidemia. -CRP 19 on 10/08 2) Peritonitis: from gastric perforation from dislodged PEG with significant ascites -S/P exlap, repair of gastric perforation with wedge gastrectomy, abdominal washout, drain placement on 10/05. 3) Candidemia: -Blood cultures positive for Silvia albicans on 09/23 -Blood cultures positive on 09/25 -Blood cutlures negative on 09/30 -PICC line changed on 10/03 -Source ? gastric perf (PEG placed on 09/20) +/- TPN +/- central lines -TTE 10/07 no vegetations -PICC exchanged on 10/03 4) CA-UTI s/p gutierrez exchanged 5) Diarrhea - ? etiology ? antibiotic-induced, not better 6) Initial presumed aspiration pneumonia 7) Presumed UTI: urine cx 09/23 multiple species 8) Respiratory failure s/p trach 9) Recent CVA-left MCA CVA 10) Uncontrolled HTN 11) Acute on CKD 12) Extensive back skin peeling ? burn from gastric secretions. Doubt allergic reaction 13) Severe anemia; ? from GI bleed Plan: -repeat blood cultures and procalcitonin in view of fever and persistent leukocytosis -obtain new CT abdomen w/o in view of fever and persistent leukocytosis r/o leak , collection -stop zosyn day 6 of 14 -start meropenem to cover peritonitis not responding to zosyn? -continue micafungin day 13 of 14 to cover Silvia albicans (since last negative blood cx) Thank you Dr Ribeiro for your consultation, will follow up with you. Pauline Carias MD Infectious Diseases Specialist [facility] ([facility] M [phone] O [phone] Subjective Date of service: 10/12/16 Principal diagnosis: hematochezia Interval history: Remains somnolent, open eyes spontaneously, not following commands, on the vent via trach, on CPAP fio2 30%, no pressors. Noted fever at 100.5 last 24h. + oliguric. + diarrhea via rectal tube decreased Microbiology: Blood cultures: 09/13 neg 09/23 Silvia albicans 09/25 Silvia 09/29 neg 10/07 NGTD Urine cultures: 09/10 neg 09/13 neg 8/ 10-100K mixed species 10/07 pending Respiratory cultures: 09/07 neg 09/13 neg 09/23 neg Wound cultures: Stool cultures: Current Antimicrobials: zosyn 10/07 Micafungin 09/27 Previous Antimicrobials: Zosyn Vancomycin PO 10/01 Metronidazole 09/25 Objective - Exam Narrative Exam: General appearance: somnolent non verbal, on the vent via trach no following commands Eyes: anicteric sclera, moist conjunctivae; PERRLA HENT: Atraumatic; oropharynx limited; Normal external ears. +NGT with greenish secretion Neck: +trach in place; supple, no thyromegaly or lymphadenopathy Lungs: coarse BS bilateral CV: tachycardic Abdomen: Soft, non-tender, +drain with purulent drainage, + diarrhea via rectal tube. +old PEG site no drainage. Extremities: +peripheral edema no extremity lymphadenopathy Skin: Julian sub mammary ulcers, extensive skin peeling on back Psych: somnolent . Neuro: somnolent non verbal on the vent. Lines: left arm PICC placed on 10/03 - Constitutional Vitals: Vital Signs Temp Pulse Resp BP Pulse Ox 99.5 F 102 H 26 H 171/92 100 10/12/16 08:00 10/12/16 09:00 10/12/16 09:00 10/12/16 09:00 10/12/16 09:00 Temperature -Last 24 Hours Temperature 99.5 F Temperature 100.5 F Temperature 100.2 F Temperature 100.1 F Temperature 98.6 F Temperature 99.3 F - Labs CBC & Chem 7: 10/12/16 04:40 10/12/16 04:40 Labs: Abnormal lab results 10/07/16 10/09/16 10/11/16 Range/Units 03:45 07:20 04:15 WBC (4.5-11.0) K/mm3 RBC (3.65-5.03) M/mm3 Hgb (10.1-14.3) gm/dl Hct (30.3-42.9) % RDW (13.2-15.2) % Sodium (137-145) mmol/L Chloride (98-107) mmol/L BUN (7-17) mg/dL Creatinine (0.7-1.2) mg/dL Glucose (65-100) mg/dL POC Glucose (70-105) Calcium (8.4-10.2) mg/dL C-Reactive Protein 15.80 H (0.00-1.30) mg/dL Miscellaneous Test Flexitest 1 H Crossmatch See Detail 10/11/16 10/11/16 10/11/16 Range/Units 11:40 15:49 23:57 WBC (4.5-11.0) K/mm3 RBC (3.65-5.03) M/mm3 Hgb (10.1-14.3) gm/dl Hct (30.3-42.9) % RDW (13.2-15.2) % Sodium (137-145) mmol/L Chloride (98-107) mmol/L BUN (7-17) mg/dL Creatinine (0.7-1.2) mg/dL Glucose (65-100) mg/dL POC Glucose 139 H 168 H 161 H (70-105) Calcium (8.4-10.2) mg/dL C-Reactive Protein (0.00-1.30) mg/dL Miscellaneous Test Crossmatch 10/12/16 10/12/16 10/12/16 Range/Units 04:40 04:40 05:44 WBC 22.5 H (4.5-11.0) K/mm3 RBC 2.88 L (3.65-5.03) M/mm3 Hgb 8.8 L (10.1-14.3) gm/dl Hct 26.8 L (30.3-42.9) % RDW 17.8 H (13.2-15.2) % Sodium 134 L (137-145) mmol/L Chloride 93.0 L (98-107) mmol/L BUN 74 H (7-17) mg/dL Creatinine 2.5 H (0.7-1.2) mg/dL Glucose 137 H (65-100) mg/dL POC Glucose 158 H (70-105) Calcium 8.2 L (8.4-10.2) mg/dL C-Reactive Protein (0.00-1.30) mg/dL Miscellaneous Test Crossmatch
--- NOTE | 2016-10-12 11:52 | Progress Note ---
Assessment and Plan - Patient Problems (1) Acute respiratory failure with hypoxia Current Visit: Yes Status: Acute Plan to address problem: Continue with mechanical ventilatory support Lung protective strategies -VAP bundle, HOB >40 - SCDs for VTE prophylaxis - Stress ulcer prophylaxis -Bronchodilators- h/o asthma -[place] catheter in this critically ill patient - TPN, accucheck with glycemic control - Agitation management/analgesia - daily SATs and SBTs as tolerated - ABGs and CXR -Trach care per RT (2) Acute CVA (cerebrovascular accident) Current Visit: Yes Status: Acute Plan to address problem: CTScan -subacute MCA territory infarct Secondary stroke prophylaxis Neuroprotective measures Aspiration precautions Neurology following (3) Chronic renal insufficiency Current Visit: Yes Status: Acute Qualifiers: Chronic kidney disease stage: C Plan to address problem: UF/HD per renal service Renal following (4) Uncontrolled hypertension Current Visit: Yes Status: Acute Plan to address problem: Monitor closely and adjust anti-hypertensive medications (5) Leukocytosis (leucocytosis) Current Visit: Yes Status: Acute Qualifiers: Leukocytosis type: leukemoid reaction Qualified Code(s): D72.823 - Leukemoid reaction Plan to address problem: On antibiotics and antifungal per ID service. Discussed with ID attending re my concerns with her leukocytosis. Monitor for now while on antibiotics and antifungal, abdominal imaging today. (6) Dislodged gastrostomy tube Current Visit: Yes Status: Acute Plan to address problem: With bowel perforation. Purulent drainage from JUAN drain. Remains NPO and on TPN for nutritional support. GI/Surgery following (7) Fungemia Current Visit: Yes Status: Acute Plan to address problem: Anti-fungal therapy per ID service. Subjective Date of service: 10/12/16 Principal diagnosis: hematochezia Interval history: Seen and examined. Vitals, labs, medications, chart reviewed. On mechanical ventilatory support PSV 10/5 FIO2 30% with Vt 300ml. On TPN, with purulent drainage from the JUAN drain. No fevers.Currently no further surgical interventions On going leukocytosis. EEG ordered by Neurology. discussed with RT and RN For CTscan of the abdomen today to evaluate for any intra-abdominal collections Objective - Exam Narrative Exam: General appearance: somnolent non verbal, on the vent via trach not following commands Awake, alert, Eyes: anicteric sclera, moist conjunctivae; PERRLA HENT: Atraumatic; oropharynx limited; Normal external ears. +NGT with greenish secretion Neck: +trach in place; supple, no thyromegaly or lymphadenopathy Lungs: coarse BS bilateral. No patietn-ventilator dys-synchrony CV: tachycardic Abdomen: Soft, non-tender, JUAN drain with purulent drainage, + diarrhea via rectal tube. +old PEG site no drainage. Extremities: +peripheral edema no extremity lymphadenopathy Skin: Julian sub mammary ulcers, extensive skin peeling on back and upper extremities. Neuro: Awake, alert, not obeying any commands Lines: left arm PICC placed on 10/03 Vital Signs - 12hr 10/12/16 10/12/16 10/12/16 00:00 01:00 01:41 Temperature 100.2 F H Pulse Rate 100 H 103 H 100 H Pulse Rate [ 101 H From Monitor] Respiratory 24 25 H 22 Rate Blood Pressure 170/97 189/105 176/96 O2 Sat by Pulse 100 100 100 Oximetry O2 Sat by Pulse Oximetry [ Assessment] 10/12/16 10/12/16 10/12/16 02:00 03:00 04:00 Temperature 100.5 F H Pulse Rate 104 H 103 H 105 H Pulse Rate [ 97 H From Monitor] Respiratory 22 22 26 H Rate Blood Pressure 181/101 183/114 144/76 O2 Sat by Pulse 100 100 100 Oximetry O2 Sat by Pulse Oximetry [ Assessment] 10/12/16 10/12/16 10/12/16 05:00 05:33 06:00 Temperature Pulse Rate 96 H 96 H Pulse Rate [ From Monitor] Respiratory 24 27 H Rate Blood Pressure 152/78 145/69 O2 Sat by Pulse 98 100 Oximetry O2 Sat by Pulse 100 Oximetry [ Assessment] 10/12/16 10/12/16 10/12/16 07:00 08:00 09:00 Temperature 99.5 F Pulse Rate 98 H 102 H 102 H Pulse Rate [ 100 H From Monitor] Respiratory 24 28 H 26 H Rate Blood Pressure 164/87 168/97 171/92 O2 Sat by Pulse 100 100 100 Oximetry O2 Sat by Pulse Oximetry [ Assessment] Constitutional: no acute distress, other (grimaces with moving) Eyes: non-icteric, other (tracheostomy tube in midline of neck) ENT: oropharynx moist Neck: supple, no lymphadenopathy Effort: mildly labored Ascultation: Bilateral: clear, diminished breath sounds (bases), rales, rhonchi (bases) Cardiovascular: regular rate and rhythm Gastrointestinal: hypoactive bowel sounds, soft, non-tender, non-distended Integumentary: other (erythema to skin of back with some healing areas; no obvious TEN's features) Extremities: no cyanosis, no edema, pulses normal, no ischemia or petechiae Neurologic: pupils equal and round, other (sedated) Psychiatric: other (unable to assess) CBC and BMP: 10/12/16 04:40 10/12/16 04:40 ABG, PT/INR, D-dimer: ABG POC ABG pH 7.437 (7.35-7.45) 10/08/16 12:49 POC ABG pCO2 28.2 (35-45) L 10/08/16 12:49 POC ABG pO2 111 (80-105) H 10/08/16 12:49 POC ABG HCO3 19.0 10/08/16 12:49 POC ABG Total CO2 20 10/08/16 12:49 POC ABG O2 Sat 99 10/08/16 12:49 PT/INR, D-dimer PT 19.0 Sec. (12.2-14.9) H 10/09/16 03:45 INR 1.51 (0.87-1.13) H 10/09/16 03:45 Abnormal lab findings: Abnormal Labs 09/03/16 09/03/16 09/03/16 12:12 15:07 16:20 WBC RBC Hgb Hct MCV MCH MCHC RDW Plt Count Lymph % (Auto) [place] % (Auto) Lymph # [place] # Seg Neutrophils % Seg Neuts % (Manual) Lymphocytes % (Manual) Monocytes % (Manual) Eosinophils % (Manual) Basophils % (Manual) Nucleated RBC % Seg Neutrophils # Seg Neutrophils # Man Lymphocytes # (Manual) Monocytes # (Manual) Eosinophils # (Manual) PT INR Fibrinogen dRVVT Confirm Interp Factor V Activity POC ABG pH 7.452 H POC ABG pCO2 POC ABG pO2 Sodium Potassium Chloride Carbon Dioxide BUN Creatinine Glucose POC Glucose 178 H Lactic Acid Calcium Phosphorus 2.20 L Magnesium 1.60 L Direct Bilirubin ALT Alkaline Phosphatase Troponin T C-Reactive Protein Total Protein Albumin Triglycerides Cholesterol LDL Cholesterol Direct HDL Cholesterol Urine WBC (Auto) Urine Creatinine Urine Total Protein Vancomycin Trough Rheumatoid Factor Complement C4 Miscellaneous Test Crossmatch 09/03/16 09/03/16 09/03/16 17:57 17:58 23:50 WBC RBC Hgb Hct MCV MCH MCHC RDW Plt Count Lymph % (Auto) [place] % (Auto) Lymph # [place] # Seg Neutrophils % Seg Neuts % (Manual) Lymphocytes % (Manual) Monocytes % (Manual) Eosinophils % (Manual) Basophils % (Manual) Nucleated RBC % Seg Neutrophils # Seg Neutrophils # Man Lymphocytes # (Manual) Monocytes # (Manual) Eosinophils # (Manual) PT INR Fibrinogen dRVVT Confirm Interp Factor V Activity POC ABG pH POC ABG pCO2 POC ABG pO2 Sodium Potassium Chloride Carbon Dioxide BUN Creatinine Glucose POC Glucose 162 H 145 H Lactic Acid Calcium Phosphorus 2.30 L Magnesium Direct Bilirubin ALT Alkaline Phosphatase Troponin T C-Reactive Protein Total Protein Albumin Triglycerides Cholesterol LDL Cholesterol Direct HDL Cholesterol Urine WBC (Auto) Urine Creatinine Urine Total Protein Vancomycin Trough Rheumatoid Factor Complement C4 Miscellaneous Test Crossmatch 09/04/16 09/04/16 09/04/16 03:31 03:31 05:42 WBC RBC Hgb 9.7 L D Hct MCV 72 L MCH 23 L MCHC RDW 17.5 H Plt Count Lymph % (Auto) 11.1 L [place] % (Auto) Lymph # [place] # Seg Neutrophils % 84.3 H Seg Neuts % (Manual) Lymphocytes % (Manual) Monocytes % (Manual) Eosinophils % (Manual) Basophils % (Manual) Nucleated RBC % Seg Neutrophils # 8.9 H Seg Neutrophils # Man Lymphocytes # (Manual) Monocytes # (Manual) Eosinophils # (Manual) PT INR Fibrinogen dRVVT Confirm Interp Factor V Activity POC ABG pH POC ABG pCO2 POC ABG pO2 Sodium 135 L Potassium 2.9 L* Chloride 97.2 L Carbon Dioxide 19 L BUN Creatinine 1.7 H Glucose 170 H POC Glucose 152 H Lactic Acid Calcium Phosphorus Magnesium Direct Bilirubin ALT Alkaline Phosphatase Troponin T C-Reactive Protein Total Protein Albumin Triglycerides 160 H Cholesterol LDL Cholesterol Direct HDL Cholesterol 31 L Urine WBC (Auto) Urine Creatinine Urine Total Protein Vancomycin Trough Rheumatoid Factor Complement C4 Miscellaneous Test Crossmatch 09/04/16 09/04/16 09/04/16 11:34 17:46 23:29 WBC RBC Hgb Hct MCV MCH MCHC RDW Plt Count Lymph % (Auto) [place] % (Auto) Lymph # [place] # Seg Neutrophils % Seg Neuts % (Manual) Lymphocytes % (Manual) Monocytes % (Manual) Eosinophils % (Manual) Basophils % (Manual) Nucleated RBC % Seg Neutrophils # Seg Neutrophils # Man Lymphocytes # (Manual) Monocytes # (Manual) Eosinophils # (Manual) PT INR Fibrinogen dRVVT Confirm Interp Factor V Activity POC ABG pH POC ABG pCO2 POC ABG pO2 Sodium Potassium Chloride Carbon Dioxide BUN Creatinine Glucose POC Glucose 165 H 210 H 139 H Lactic Acid Calcium Phosphorus Magnesium Direct Bilirubin ALT Alkaline Phosphatase Troponin T C-Reactive Protein Total Protein Albumin Triglycerides Cholesterol LDL Cholesterol Direct HDL Cholesterol Urine WBC (Auto) Urine Creatinine Urine Total Protein Vancomycin Trough Rheumatoid Factor Complement C4 Miscellaneous Test Crossmatch 09/05/16 09/05/16 09/05/16 04:05 04:05 05:38 WBC RBC Hgb Hct MCV 76 L D MCH 23 L MCHC RDW 17.8 H Plt Count Lymph % (Auto) [place] % (Auto) Lymph # [place] # Seg Neutrophils % Seg Neuts % (Manual) Lymphocytes % (Manual) Monocytes % (Manual) Eosinophils % (Manual) Basophils % (Manual) Nucleated RBC % Seg Neutrophils # Seg Neutrophils # Man Lymphocytes # (Manual) Monocytes # (Manual) Eosinophils # (Manual) PT INR Fibrinogen dRVVT Confirm Interp Factor V Activity POC ABG pH POC ABG pCO2 POC ABG pO2 Sodium 134 L Potassium Chloride Carbon Dioxide 18 L BUN Creatinine 1.8 H Glucose 192 H POC Glucose 175 H Lactic Acid Calcium Phosphorus Magnesium Direct Bilirubin ALT Alkaline Phosphatase Troponin T C-Reactive Protein Total Protein Albumin Triglycerides Cholesterol LDL Cholesterol Direct HDL Cholesterol Urine WBC (Auto) Urine Creatinine Urine Total Protein Vancomycin Trough Rheumatoid Factor Complement C4 Miscellaneous Test Crossmatch 09/05/16 09/05/16 09/05/16 11:38 17:48 23:22 WBC RBC Hgb Hct MCV MCH MCHC RDW Plt Count Lymph % (Auto) [place] % (Auto) Lymph # [place] # Seg Neutrophils % Seg Neuts % (Manual) Lymphocytes % (Manual) Monocytes % (Manual) Eosinophils % (Manual) Basophils % (Manual) Nucleated RBC % Seg Neutrophils # Seg Neutrophils # Man Lymphocytes # (Manual) Monocytes # (Manual) Eosinophils # (Manual) PT INR Fibrinogen dRVVT Confirm Interp Factor V Activity POC ABG pH POC ABG pCO2 POC ABG pO2 Sodium Potassium Chloride Carbon Dioxide BUN Creatinine Glucose POC Glucose 164 H 186 H 195 H Lactic Acid Calcium Phosphorus Magnesium Direct Bilirubin ALT Alkaline Phosphatase Troponin T C-Reactive Protein Total Protein Albumin Triglycerides Cholesterol LDL Cholesterol Direct HDL Cholesterol Urine WBC (Auto) Urine Creatinine Urine Total Protein Vancomycin Trough Rheumatoid Factor Complement C4 Miscellaneous Test Crossmatch 09/06/16 09/06/16 09/06/16 04:12 05:59 07:32 WBC RBC Hgb Hct MCV MCH MCHC RDW Plt Count Lymph % (Auto) [place] % (Auto) Lymph # [place] # Seg Neutrophils % Seg Neuts % (Manual) Lymphocytes % (Manual) Monocytes % (Manual) Eosinophils % (Manual) Basophils % (Manual) Nucleated RBC % Seg Neutrophils # Seg Neutrophils # Man Lymphocytes # (Manual) Monocytes # (Manual) Eosinophils # (Manual) PT INR Fibrinogen dRVVT Confirm Interp Factor V Activity POC ABG pH 7.514 H POC ABG pCO2 29.1 L POC ABG pO2 72 L Sodium 133 L Potassium 3.4 L Chloride 94.9 L Carbon Dioxide 19 L BUN 30 H Creatinine 2.1 H Glucose 139 H POC Glucose 146 H Lactic Acid Calcium Phosphorus Magnesium Direct Bilirubin ALT Alkaline Phosphatase Troponin T C-Reactive Protein Total Protein Albumin Triglycerides Cholesterol LDL Cholesterol Direct HDL Cholesterol Urine WBC (Auto) Urine Creatinine Urine Total Protein Vancomycin Trough Rheumatoid Factor Complement C4 Miscellaneous Test Crossmatch 09/06/16 09/06/16 09/06/16 11:57 17:58 19:02 WBC RBC Hgb Hct MCV MCH MCHC RDW Plt Count Lymph % (Auto) [place] % (Auto) Lymph # [place] # Seg Neutrophils % Seg Neuts % (Manual) Lymphocytes % (Manual) Monocytes % (Manual) Eosinophils % (Manual) Basophils % (Manual) Nucleated RBC % Seg Neutrophils # Seg Neutrophils # Man Lymphocytes # (Manual) Monocytes # (Manual) Eosinophils # (Manual) PT INR Fibrinogen dRVVT Confirm Interp Factor V Activity POC ABG pH 7.465 H POC ABG pCO2 32.0 L POC ABG pO2 Sodium Potassium Chloride Carbon Dioxide BUN Creatinine Glucose POC Glucose 165 H 160 H Lactic Acid Calcium Phosphorus Magnesium Direct Bilirubin ALT Alkaline Phosphatase Troponin T C-Reactive Protein Total Protein Albumin Triglycerides Cholesterol LDL Cholesterol Direct HDL Cholesterol Urine WBC (Auto) Urine Creatinine Urine Total Protein Vancomycin Trough Rheumatoid Factor Complement C4 Miscellaneous Test Crossmatch 09/06/16 09/07/16 09/07/16 23:45 02:47 02:47 WBC RBC Hgb Hct MCV MCH MCHC RDW Plt Count Lymph % (Auto) [place] % (Auto) Lymph # [place] # Seg Neutrophils % Seg Neuts % (Manual) Lymphocytes % (Manual) Monocytes % (Manual) Eosinophils % (Manual) Basophils % (Manual) Nucleated RBC % Seg Neutrophils # Seg Neutrophils # Man Lymphocytes # (Manual) Monocytes # (Manual) Eosinophils # (Manual) PT INR Fibrinogen dRVVT Confirm Interp Factor V Activity POC ABG pH POC ABG pCO2 POC ABG pO2 Sodium Potassium Chloride Carbon Dioxide BUN Creatinine Glucose POC Glucose 204 H Lactic Acid Calcium Phosphorus Magnesium Direct Bilirubin ALT Alkaline Phosphatase Troponin T C-Reactive Protein Total Protein Albumin Triglycerides Cholesterol LDL Cholesterol Direct HDL Cholesterol Urine WBC (Auto) 68.0 H Urine Creatinine 106.1 H Urine Total Protein Vancomycin Trough Rheumatoid Factor Complement C4 Miscellaneous Test Crossmatch 09/07/16 09/07/16 09/07/16 04:50 06:19 06:39 WBC RBC Hgb Hct MCV MCH MCHC RDW Plt Count Lymph % (Auto) [place] % (Auto) Lymph # [place] # Seg Neutrophils % Seg Neuts % (Manual) Lymphocytes % (Manual) Monocytes % (Manual) Eosinophils % (Manual) Basophils % (Manual) Nucleated RBC % Seg Neutrophils # Seg Neutrophils # Man Lymphocytes # (Manual) Monocytes # (Manual) Eosinophils # (Manual) PT INR Fibrinogen dRVVT Confirm Interp Factor V Activity POC ABG pH 7.457 H POC ABG pCO2 32.1 L POC ABG pO2 76 L Sodium 132 L Potassium Chloride 94.7 L Carbon Dioxide BUN 53 H Creatinine 2.9 H Glucose 151 H POC Glucose 149 H Lactic Acid Calcium Phosphorus Magnesium Direct Bilirubin ALT Alkaline Phosphatase Troponin T C-Reactive Protein Total Protein Albumin Triglycerides Cholesterol LDL Cholesterol Direct HDL Cholesterol Urine WBC (Auto) Urine Creatinine Urine Total Protein Vancomycin Trough Rheumatoid Factor Complement C4 Miscellaneous Test Crossmatch 09/07/16 09/07/16 09/07/16 09:20 11:43 11:43 WBC 19.4 H RBC Hgb 8.3 L Hct 26.4 L D MCV 72 L D MCH 22 L MCHC RDW 17.9 H Plt Count Lymph % (Auto) 8.5 L [place] % (Auto) Lymph # [place] # 1.0 H Seg Neutrophils % 85.8 H Seg Neuts % (Manual) Lymphocytes % (Manual) Monocytes % (Manual) Eosinophils % (Manual) Basophils % (Manual) Nucleated RBC % Seg Neutrophils # 16.6 H Seg Neutrophils # Man Lymphocytes # (Manual) Monocytes # (Manual) Eosinophils # (Manual) PT INR Fibrinogen dRVVT Confirm Interp Factor V Activity POC ABG pH POC ABG pCO2 POC ABG pO2 Sodium 134 L Potassium Chloride 97.2 L Carbon Dioxide 20 L BUN 58 H Creatinine 2.9 H Glucose 147 H POC Glucose Lactic Acid Calcium Phosphorus 2.40 L Magnesium 2.40 H Direct Bilirubin ALT Alkaline Phosphatase Troponin T C-Reactive Protein Total Protein 5.8 L Albumin 2.2 L Triglycerides Cholesterol LDL Cholesterol Direct HDL Cholesterol Urine WBC (Auto) Urine Creatinine Urine Total Protein Vancomycin Trough Rheumatoid Factor Complement C4 58 H Miscellaneous Test Crossmatch 09/07/16 09/07/16 09/07/16 11:50 16:00 17:31 WBC RBC Hgb Hct MCV MCH MCHC RDW Plt Count Lymph % (Auto) [place] % (Auto) Lymph # [place] # Seg Neutrophils % Seg Neuts % (Manual) Lymphocytes % (Manual) Monocytes % (Manual) Eosinophils % (Manual) Basophils % (Manual) Nucleated RBC % Seg Neutrophils # Seg Neutrophils # Man Lymphocytes # (Manual) Monocytes # (Manual) Eosinophils # (Manual) PT INR Fibrinogen dRVVT Confirm Interp Factor V Activity POC ABG pH POC ABG pCO2 POC ABG pO2 158 H Sodium Potassium Chloride Carbon Dioxide BUN Creatinine Glucose POC Glucose 175 H Lactic Acid Calcium Phosphorus Magnesium Direct Bilirubin ALT Alkaline Phosphatase Troponin T C-Reactive Protein Total Protein Albumin Triglycerides Cholesterol LDL Cholesterol Direct HDL Cholesterol Urine WBC (Auto) Urine Creatinine 66.3 H Urine Total Protein Vancomycin Trough Rheumatoid Factor Complement C4 Miscellaneous Test Crossmatch 09/07/16 09/08/16 09/08/16 23:50 05:46 06:18 WBC 17.8 H RBC 3.58 L Hgb 8.1 L Hct 25.5 L MCV 71 L MCH 23 L MCHC RDW 18.4 H Plt Count Lymph % (Auto) [place] % (Auto) Lymph # [place] # Seg Neutrophils % Seg Neuts % (Manual) 92.0 H Lymphocytes % (Manual) 6.0 L Monocytes % (Manual) Eosinophils % (Manual) Basophils % (Manual) Nucleated RBC % Seg Neutrophils # Seg Neutrophils # Man 16.4 H Lymphocytes # (Manual) 1.1 L Monocytes # (Manual) Eosinophils # (Manual) PT INR Fibrinogen dRVVT Confirm Interp Factor V Activity POC ABG pH POC ABG pCO2 34.3 L POC ABG pO2 71 L Sodium Potassium Chloride Carbon Dioxide BUN Creatinine Glucose POC Glucose 216 H Lactic Acid Calcium Phosphorus Magnesium Direct Bilirubin ALT Alkaline Phosphatase Troponin T C-Reactive Protein Total Protein Albumin Triglycerides Cholesterol LDL Cholesterol Direct HDL Cholesterol Urine WBC (Auto) Urine Creatinine Urine Total Protein Vancomycin Trough Rheumatoid Factor Complement C4 Miscellaneous Test Crossmatch 09/08/16 09/08/16 09/08/16 06:18 06:51 10:55 WBC RBC Hgb Hct MCV MCH MCHC RDW Plt Count Lymph % (Auto) [place] % (Auto) Lymph # [place] # Seg Neutrophils % Seg Neuts % (Manual) Lymphocytes % (Manual) Monocytes % (Manual) Eosinophils % (Manual) Basophils % (Manual) Nucleated RBC % Seg Neutrophils # Seg Neutrophils # Man Lymphocytes # (Manual) Monocytes # (Manual) Eosinophils # (Manual) PT INR Fibrinogen dRVVT Confirm Interp Factor V Activity POC ABG pH POC ABG pCO2 POC ABG pO2 Sodium 133 L Potassium Chloride 96.9 L Carbon Dioxide 20 L BUN 63 H Creatinine 2.7 H Glucose 195 H POC Glucose 204 H 169 H Lactic Acid Calcium Phosphorus Magnesium Direct Bilirubin ALT Alkaline Phosphatase Troponin T C-Reactive Protein Total Protein Albumin Triglycerides Cholesterol LDL Cholesterol Direct HDL Cholesterol Urine WBC (Auto) Urine Creatinine Urine Total Protein Vancomycin Trough Rheumatoid Factor Complement C4 Miscellaneous Test Crossmatch 09/08/16 09/08/16 09/08/16 11:48 11:48 11:48 WBC RBC Hgb Hct MCV MCH MCHC RDW Plt Count Lymph % (Auto) [place] % (Auto) Lymph # [place] # Seg Neutrophils % Seg Neuts % (Manual) Lymphocytes % (Manual) Monocytes % (Manual) Eosinophils % (Manual) Basophils % (Manual) Nucleated RBC % Seg Neutrophils # Seg Neutrophils # Man Lymphocytes # (Manual) Monocytes # (Manual) Eosinophils # (Manual) PT INR Fibrinogen 750 H dRVVT Confirm Interp Factor V Activity POC ABG pH POC ABG pCO2 POC ABG pO2 Sodium Potassium Chloride Carbon Dioxide BUN Creatinine Glucose POC Glucose Lactic Acid Calcium Phosphorus Magnesium Direct Bilirubin ALT Alkaline Phosphatase Troponin T C-Reactive Protein 15.70 H Total Protein Albumin Triglycerides Cholesterol LDL Cholesterol Direct HDL Cholesterol Urine WBC (Auto) Urine Creatinine Urine Total Protein Vancomycin Trough Rheumatoid Factor 24 H Complement C4 Miscellaneous Test Crossmatch 09/08/16 09/08/16 09/09/16 15:35 18:25 00:24 WBC RBC Hgb Hct MCV MCH MCHC RDW Plt Count Lymph % (Auto) [place] % (Auto) Lymph # [place] # Seg Neutrophils % Seg Neuts % (Manual) Lymphocytes % (Manual) Monocytes % (Manual) Eosinophils % (Manual) Basophils % (Manual) Nucleated RBC % Seg Neutrophils # Seg Neutrophils # Man Lymphocytes # (Manual) Monocytes # (Manual) Eosinophils # (Manual) PT INR Fibrinogen dRVVT Confirm Interp Factor V Activity 182 H POC ABG pH POC ABG pCO2 POC ABG pO2 Sodium Potassium Chloride Carbon Dioxide BUN Creatinine Glucose POC Glucose 184 H 216 H Lactic Acid Calcium Phosphorus Magnesium Direct Bilirubin ALT Alkaline Phosphatase Troponin T C-Reactive Protein Total Protein Albumin Triglycerides Cholesterol LDL Cholesterol Direct HDL Cholesterol Urine WBC (Auto) Urine Creatinine Urine Total Protein Vancomycin Trough Rheumatoid Factor Complement C4 Miscellaneous Test Crossmatch 09/09/16 09/09/16 09/09/16 03:00 03:00 04:04 WBC 27.9 H RBC Hgb 8.7 L Hct 28.1 L MCV 72 L MCH 22 L MCHC RDW 18.4 H Plt Count 485 H Lymph % (Auto) [place] % (Auto) Lymph # [place] # Seg Neutrophils % Seg Neuts % (Manual) 77.0 H Lymphocytes % (Manual) 9.0 L Monocytes % (Manual) Eosinophils % (Manual) Basophils % (Manual) Nucleated RBC % Seg Neutrophils # Seg Neutrophils # Man 21.5 H Lymphocytes # (Manual) Monocytes # (Manual) 2.0 H Eosinophils # (Manual) PT INR Fibrinogen dRVVT Confirm Interp Factor V Activity POC ABG pH POC ABG pCO2 POC ABG pO2 121 H Sodium 135 L Potassium Chloride 96.3 L Carbon Dioxide 21 L BUN 83 H Creatinine 3.0 H Glucose 135 H POC Glucose Lactic Acid Calcium Phosphorus Magnesium Direct Bilirubin ALT Alkaline Phosphatase Troponin T C-Reactive Protein Total Protein Albumin Triglycerides Cholesterol LDL Cholesterol Direct HDL Cholesterol Urine WBC (Auto) Urine Creatinine Urine Total Protein Vancomycin Trough Rheumatoid Factor Complement C4 Miscellaneous Test Crossmatch 09/09/16 09/09/16 09/09/16 05:41 11:55 14:13 WBC RBC Hgb Hct MCV MCH MCHC RDW Plt Count Lymph % (Auto) [place] % (Auto) Lymph # [place] # Seg Neutrophils % Seg Neuts % (Manual) Lymphocytes % (Manual) Monocytes % (Manual) Eosinophils % (Manual) Basophils % (Manual) Nucleated RBC % Seg Neutrophils # Seg Neutrophils # Man Lymphocytes # (Manual) Monocytes # (Manual) Eosinophils # (Manual) PT INR Fibrinogen dRVVT Confirm Interp Factor V Activity POC ABG pH POC ABG pCO2 POC ABG pO2 Sodium Potassium Chloride Carbon Dioxide BUN Creatinine Glucose POC Glucose 155 H 186 H Lactic Acid Calcium Phosphorus Magnesium Direct Bilirubin ALT Alkaline Phosphatase Troponin T C-Reactive Protein Total Protein Albumin Triglycerides Cholesterol LDL Cholesterol Direct HDL Cholesterol Urine WBC (Auto) 25.0 H Urine Creatinine Urine Total Protein Vancomycin Trough Rheumatoid Factor Complement C4 Miscellaneous Test Crossmatch 09/09/16 09/09/16 09/10/16 17:33 23:13 05:09 WBC RBC Hgb Hct MCV MCH MCHC RDW Plt Count Lymph % (Auto) [place] % (Auto) Lymph # [place] # Seg Neutrophils % Seg Neuts % (Manual) Lymphocytes % (Manual) Monocytes % (Manual) Eosinophils % (Manual) Basophils % (Manual) Nucleated RBC % Seg Neutrophils # Seg Neutrophils # Man Lymphocytes # (Manual) Monocytes # (Manual) Eosinophils # (Manual) PT INR Fibrinogen dRVVT Confirm Interp Factor V Activity POC ABG pH POC ABG pCO2 POC ABG pO2 74 L Sodium Potassium Chloride Carbon Dioxide BUN Creatinine Glucose POC Glucose 211 H 215 H Lactic Acid Calcium Phosphorus Magnesium Direct Bilirubin ALT Alkaline Phosphatase Troponin T C-Reactive Protein Total Protein Albumin Triglycerides Cholesterol LDL Cholesterol Direct HDL Cholesterol Urine WBC (Auto) Urine Creatinine Urine Total Protein Vancomycin Trough Rheumatoid Factor Complement C4 Miscellaneous Test Crossmatch 09/10/16 09/10/16 09/10/16 05:17 05:17 11:31 WBC 15.8 H RBC 3.25 L Hgb 7.3 L Hct 22.9 L MCV 71 L MCH 23 L MCHC RDW 18.4 H Plt Count Lymph % (Auto) [place] % (Auto) Lymph # [place] # Seg Neutrophils % Seg Neuts % (Manual) 91.0 H Lymphocytes % (Manual) 4.0 L Monocytes % (Manual) Eosinophils % (Manual) Basophils % (Manual) Nucleated RBC % Seg Neutrophils # Seg Neutrophils # Man 14.4 H Lymphocytes # (Manual) 0.6 L Monocytes # (Manual) Eosinophils # (Manual) PT INR Fibrinogen dRVVT Confirm Interp Factor V Activity POC ABG pH POC ABG pCO2 POC ABG pO2 Sodium Potassium Chloride Carbon Dioxide 21 L BUN 93 H Creatinine 2.9 H Glucose 146 H POC Glucose 188 H Lactic Acid Calcium 8.1 L Phosphorus Magnesium Direct Bilirubin ALT Alkaline Phosphatase Troponin T C-Reactive Protein Total Protein Albumin Triglycerides Cholesterol LDL Cholesterol Direct HDL Cholesterol Urine WBC (Auto) Urine Creatinine Urine Total Protein Vancomycin Trough Rheumatoid Factor Complement C4 Miscellaneous Test Crossmatch 09/10/16 09/10/16 09/10/16 13:17 17:20 23:32 WBC RBC Hgb Hct MCV MCH MCHC RDW Plt Count Lymph % (Auto) [place] % (Auto) Lymph # [place] # Seg Neutrophils % Seg Neuts % (Manual) Lymphocytes % (Manual) Monocytes % (Manual) Eosinophils % (Manual) Basophils % (Manual) Nucleated RBC % Seg Neutrophils # Seg Neutrophils # Man Lymphocytes # (Manual) Monocytes # (Manual) Eosinophils # (Manual) PT INR Fibrinogen dRVVT Confirm Interp Factor V Activity POC ABG pH POC ABG pCO2 POC ABG pO2 Sodium Potassium Chloride Carbon Dioxide BUN Creatinine Glucose POC Glucose 199 H 186 H Lactic Acid Calcium Phosphorus Magnesium Direct Bilirubin ALT Alkaline Phosphatase Troponin T C-Reactive Protein Total Protein Albumin Triglycerides Cholesterol LDL Cholesterol Direct HDL Cholesterol Urine WBC (Auto) Urine Creatinine Urine Total Protein Vancomycin Trough Rheumatoid Factor Complement C4 Miscellaneous Test Crossmatch See Detail 09/11/16 09/11/16 09/11/16 05:10 05:10 05:17 WBC 28.4 H RBC Hgb 9.2 L Hct 29.3 L D MCV 73 L MCH 23 L MCHC RDW 18.9 H Plt Count 452 H Lymph % (Auto) [place] % (Auto) Lymph # [place] # Seg Neutrophils % Seg Neuts % (Manual) 89.5 H Lymphocytes % (Manual) 2.0 L Monocytes % (Manual) Eosinophils % (Manual) Basophils % (Manual) Nucleated RBC % Seg Neutrophils # Seg Neutrophils # Man 25.4 H Lymphocytes # (Manual) 0.6 L Monocytes # (Manual) 1.3 H Eosinophils # (Manual) PT INR Fibrinogen dRVVT Confirm Interp Factor V Activity POC ABG pH POC ABG pCO2 POC ABG pO2 Sodium 136 L Potassium Chloride Carbon Dioxide 18 L BUN 107 H Creatinine 2.6 H Glucose 187 H POC Glucose 230 H Lactic Acid Calcium 8.3 L Phosphorus Magnesium Direct Bilirubin ALT Alkaline Phosphatase Troponin T C-Reactive Protein Total Protein Albumin Triglycerides Cholesterol LDL Cholesterol Direct HDL Cholesterol Urine WBC (Auto) Urine Creatinine Urine Total Protein Vancomycin Trough Rheumatoid Factor Complement C4 Miscellaneous Test Crossmatch 09/11/16 09/11/16 09/11/16 05:55 12:02 17:32 WBC RBC Hgb Hct MCV MCH MCHC RDW Plt Count Lymph % (Auto) [place] % (Auto) Lymph # [place] # Seg Neutrophils % Seg Neuts % (Manual) Lymphocytes % (Manual) Monocytes % (Manual) Eosinophils % (Manual) Basophils % (Manual) Nucleated RBC % Seg Neutrophils # Seg Neutrophils # Man Lymphocytes # (Manual) Monocytes # (Manual) Eosinophils # (Manual) PT INR Fibrinogen dRVVT Confirm Interp Factor V Activity POC ABG pH POC ABG pCO2 33.8 L POC ABG pO2 Sodium Potassium Chloride Carbon Dioxide BUN Creatinine Glucose POC Glucose 191 H 239 H Lactic Acid Calcium Phosphorus Magnesium Direct Bilirubin ALT Alkaline Phosphatase Troponin T C-Reactive Protein Total Protein Albumin Triglycerides Cholesterol LDL Cholesterol Direct HDL Cholesterol Urine WBC (Auto) Urine Creatinine Urine Total Protein Vancomycin Trough Rheumatoid Factor Complement C4 Miscellaneous Test Crossmatch 09/11/16 09/12/16 09/12/16 23:52 05:09 05:32 WBC RBC Hgb Hct MCV MCH MCHC RDW Plt Count Lymph % (Auto) [place] % (Auto) Lymph # [place] # Seg Neutrophils % Seg Neuts % (Manual) Lymphocytes % (Manual) Monocytes % (Manual) Eosinophils % (Manual) Basophils % (Manual) Nucleated RBC % Seg Neutrophils # Seg Neutrophils # Man Lymphocytes # (Manual) Monocytes # (Manual) Eosinophils # (Manual) PT INR Fibrinogen dRVVT Confirm Interp Factor V Activity POC ABG pH POC ABG pCO2 34.6 L POC ABG pO2 Sodium Potassium Chloride Carbon Dioxide BUN Creatinine Glucose POC Glucose 265 H 184 H Lactic Acid Calcium Phosphorus Magnesium Direct Bilirubin ALT Alkaline Phosphatase Troponin T C-Reactive Protein Total Protein Albumin Triglycerides Cholesterol LDL Cholesterol Direct HDL Cholesterol Urine WBC (Auto) Urine Creatinine Urine Total Protein Vancomycin Trough Rheumatoid Factor Complement C4 Miscellaneous Test Crossmatch 09/12/16 09/12/16 09/12/16 06:45 06:45 07:22 WBC 31.7 H RBC 3.54 L Hgb 8.3 L Hct 25.9 L MCV 73 L MCH 23 L MCHC RDW 18.9 H Plt Count Lymph % (Auto) [place] % (Auto) Lymph # [place] # Seg Neutrophils % Seg Neuts % (Manual) 88.5 H Lymphocytes % (Manual) 4.5 L Monocytes % (Manual) Eosinophils % (Manual) Basophils % (Manual) Nucleated RBC % Seg Neutrophils # Seg Neutrophils # Man 28.1 H Lymphocytes # (Manual) Monocytes # (Manual) 1.0 H Eosinophils # (Manual) PT INR Fibrinogen dRVVT Confirm Interp Factor V Activity POC ABG pH POC ABG pCO2 POC ABG pO2 Sodium Potassium Chloride Carbon Dioxide 20 L BUN 115 H Creatinine 2.7 H Glucose 165 H POC Glucose Lactic Acid Calcium 8.0 L Phosphorus Magnesium Direct Bilirubin ALT Alkaline Phosphatase Troponin T C-Reactive Protein Total Protein Albumin Triglycerides 217 H Cholesterol LDL Cholesterol Direct HDL Cholesterol Urine WBC (Auto) Urine Creatinine Urine Total Protein Vancomycin Trough Rheumatoid Factor Complement C4 Miscellaneous Test Crossmatch 09/12/16 09/12/16 09/12/16 07:22 09:59 12:21 WBC RBC Hgb Hct MCV MCH MCHC RDW Plt Count Lymph % (Auto) [place] % (Auto) Lymph # [place] # Seg Neutrophils % Seg Neuts % (Manual) Lymphocytes % (Manual) Monocytes % (Manual) Eosinophils % (Manual) Basophils % (Manual) Nucleated RBC % Seg Neutrophils # Seg Neutrophils # Man Lymphocytes # (Manual) Monocytes # (Manual) Eosinophils # (Manual) PT INR Fibrinogen dRVVT Confirm Interp Positive H Factor V Activity POC ABG pH POC ABG pCO2 POC ABG pO2 Sodium Potassium Chloride Carbon Dioxide BUN Creatinine Glucose POC Glucose 224 H Lactic Acid Calcium Phosphorus Magnesium Direct Bilirubin ALT Alkaline Phosphatase Troponin T C-Reactive Protein 1.70 H Total Protein Albumin Triglycerides Cholesterol LDL Cholesterol Direct HDL Cholesterol Urine WBC (Auto) Urine Creatinine Urine Total Protein Vancomycin Trough Rheumatoid Factor Complement C4 Miscellaneous Test Crossmatch 09/12/16 09/12/16 09/13/16 16:51 23:28 04:00 WBC 45.0 H* RBC Hgb 9.4 L Hct MCV 75 L MCH 23 L MCHC RDW 19.0 H Plt Count 470 H Lymph % (Auto) [place] % (Auto) Lymph # [place] # Seg Neutrophils % Seg Neuts % (Manual) 89.0 H Lymphocytes % (Manual) 5.0 L Monocytes % (Manual) Eosinophils % (Manual) Basophils % (Manual) Nucleated RBC % Seg Neutrophils # Seg Neutrophils # Man 40.1 H Lymphocytes # (Manual) Monocytes # (Manual) Eosinophils # (Manual) PT INR Fibrinogen dRVVT Confirm Interp Factor V Activity POC ABG pH POC ABG pCO2 POC ABG pO2 Sodium Potassium Chloride Carbon Dioxide BUN Creatinine Glucose POC Glucose 169 H 150 H Lactic Acid Calcium Phosphorus Magnesium Direct Bilirubin ALT Alkaline Phosphatase Troponin T C-Reactive Protein Total Protein Albumin Triglycerides Cholesterol LDL Cholesterol Direct HDL Cholesterol Urine WBC (Auto) Urine Creatinine Urine Total Protein Vancomycin Trough Rheumatoid Factor Complement C4 Miscellaneous Test Crossmatch 09/13/16 09/13/16 09/13/16 04:00 11:26 17:31 WBC RBC Hgb Hct MCV MCH MCHC RDW Plt Count Lymph % (Auto) [place] % (Auto) Lymph # [place] # Seg Neutrophils % Seg Neuts % (Manual) Lymphocytes % (Manual) Monocytes % (Manual) Eosinophils % (Manual) Basophils % (Manual) Nucleated RBC % Seg Neutrophils # Seg Neutrophils # Man Lymphocytes # (Manual) Monocytes # (Manual) Eosinophils # (Manual) PT INR Fibrinogen dRVVT Confirm Interp Factor V Activity POC ABG pH POC ABG pCO2 POC ABG pO2 Sodium Potassium Chloride Carbon Dioxide 20 L BUN 116 H Creatinine 3.0 H Glucose 172 H POC Glucose 140 H 183 H Lactic Acid Calcium Phosphorus Magnesium Direct Bilirubin ALT Alkaline Phosphatase Troponin T C-Reactive Protein Total Protein 6.2 L Albumin 2.9 L Triglycerides Cholesterol LDL Cholesterol Direct HDL Cholesterol Urine WBC (Auto) Urine Creatinine Urine Total Protein Vancomycin Trough Rheumatoid Factor Complement C4 Miscellaneous Test Crossmatch 09/13/16 09/14/16 09/14/16 23:23 04:06 04:07 WBC 29.4 H RBC Hgb 8.9 L Hct 27.3 L MCV 75 L MCH 24 L MCHC RDW 19.1 H Plt Count Lymph % (Auto) [place] % (Auto) Lymph # [place] # Seg Neutrophils % Seg Neuts % (Manual) 84.0 H Lymphocytes % (Manual) 6.0 L Monocytes % (Manual) 9.0 H Eosinophils % (Manual) Basophils % (Manual) Nucleated RBC % Seg Neutrophils # Seg Neutrophils # Man 24.7 H Lymphocytes # (Manual) Monocytes # (Manual) 2.6 H Eosinophils # (Manual) PT INR Fibrinogen dRVVT Confirm Interp Factor V Activity POC ABG pH 7.342 L POC ABG pCO2 POC ABG pO2 116 H Sodium Potassium Chloride Carbon Dioxide BUN Creatinine Glucose POC Glucose 154 H Lactic Acid Calcium Phosphorus Magnesium Direct Bilirubin ALT Alkaline Phosphatase Troponin T C-Reactive Protein Total Protein Albumin Triglycerides Cholesterol LDL Cholesterol Direct HDL Cholesterol Urine WBC (Auto) Urine Creatinine Urine Total Protein Vancomycin Trough Rheumatoid Factor Complement C4 Miscellaneous Test Crossmatch 09/14/16 09/14/16 09/14/16 04:07 05:29 12:19 WBC RBC Hgb Hct MCV MCH MCHC RDW Plt Count Lymph % (Auto) [place] % (Auto) Lymph # [place] # Seg Neutrophils % Seg Neuts % (Manual) Lymphocytes % (Manual) Monocytes % (Manual) Eosinophils % (Manual) Basophils % (Manual) Nucleated RBC % Seg Neutrophils # Seg Neutrophils # Man Lymphocytes # (Manual) Monocytes # (Manual) Eosinophils # (Manual) PT INR Fibrinogen dRVVT Confirm Interp Factor V Activity POC ABG pH POC ABG pCO2 POC ABG pO2 Sodium 136 L Potassium Chloride Carbon Dioxide 18 L BUN 121 H Creatinine 2.8 H Glucose 214 H POC Glucose 239 H 181 H Lactic Acid Calcium Phosphorus Magnesium Direct Bilirubin ALT Alkaline Phosphatase Troponin T C-Reactive Protein Total Protein Albumin Triglycerides Cholesterol LDL Cholesterol Direct HDL Cholesterol Urine WBC (Auto) Urine Creatinine Urine Total Protein Vancomycin Trough Rheumatoid Factor Complement C4 Miscellaneous Test Crossmatch 09/14/16 09/14/16 09/15/16 18:12 23:37 05:00 WBC 26.1 H RBC 3.05 L Hgb 7.2 L Hct 22.9 L MCV 75 L MCH 24 L MCHC RDW 19.0 H Plt Count Lymph % (Auto) [place] % (Auto) Lymph # [place] # Seg Neutrophils % Seg Neuts % (Manual) Lymphocytes % (Manual) Monocytes % (Manual) Eosinophils % (Manual) Basophils % (Manual) Nucleated RBC % Seg Neutrophils # Seg Neutrophils # Man Lymphocytes # (Manual) Monocytes # (Manual) Eosinophils # (Manual) PT INR Fibrinogen dRVVT Confirm Interp Factor V Activity POC ABG pH POC ABG pCO2 POC ABG pO2 Sodium Potassium Chloride Carbon Dioxide BUN Creatinine Glucose POC Glucose 266 H 154 H Lactic Acid Calcium Phosphorus Magnesium Direct Bilirubin ALT Alkaline Phosphatase Troponin T C-Reactive Protein Total Protein Albumin Triglycerides Cholesterol LDL Cholesterol Direct HDL Cholesterol Urine WBC (Auto) Urine Creatinine Urine Total Protein Vancomycin Trough Rheumatoid Factor Complement C4 Miscellaneous Test Crossmatch 09/15/16 09/15/16 09/15/16 05:00 05:17 12:45 WBC RBC Hgb Hct MCV MCH MCHC RDW Plt Count Lymph % (Auto) [place] % (Auto) Lymph # [place] # Seg Neutrophils % Seg Neuts % (Manual) Lymphocytes % (Manual) Monocytes % (Manual) Eosinophils % (Manual) Basophils % (Manual) Nucleated RBC % Seg Neutrophils # Seg Neutrophils # Man Lymphocytes # (Manual) Monocytes # (Manual) Eosinophils # (Manual) PT INR Fibrinogen dRVVT Confirm Interp Factor V Activity POC ABG pH POC ABG pCO2 POC ABG pO2 Sodium Potassium 5.2 H Chloride Carbon Dioxide 18 L BUN 139 H Creatinine 3.7 H Glucose 227 H POC Glucose 226 H 244 H Lactic Acid Calcium 8.3 L Phosphorus Magnesium Direct Bilirubin ALT Alkaline Phosphatase Troponin T C-Reactive Protein Total Protein Albumin Triglycerides Cholesterol LDL Cholesterol Direct HDL Cholesterol Urine WBC (Auto) Urine Creatinine Urine Total Protein Vancomycin Trough Rheumatoid Factor Complement C4 Miscellaneous Test Crossmatch 09/15/16 09/15/16 09/15/16 14:32 17:33 23:35 WBC RBC Hgb Hct MCV MCH MCHC RDW Plt Count Lymph % (Auto) [place] % (Auto) Lymph # [place] # Seg Neutrophils % Seg Neuts % (Manual) Lymphocytes % (Manual) Monocytes % (Manual) Eosinophils % (Manual) Basophils % (Manual) Nucleated RBC % Seg Neutrophils # Seg Neutrophils # Man Lymphocytes # (Manual) Monocytes # (Manual) Eosinophils # (Manual) PT INR Fibrinogen dRVVT Confirm Interp Factor V Activity POC ABG pH POC ABG pCO2 27.7 L POC ABG pO2 120 H Sodium Potassium Chloride Carbon Dioxide BUN Creatinine Glucose POC Glucose 232 H 167 H Lactic Acid Calcium Phosphorus Magnesium Direct Bilirubin ALT Alkaline Phosphatase Troponin T C-Reactive Protein Total Protein Albumin Triglycerides Cholesterol LDL Cholesterol Direct HDL Cholesterol Urine WBC (Auto) Urine Creatinine Urine Total Protein Vancomycin Trough Rheumatoid Factor Complement C4 Miscellaneous Test Crossmatch 09/16/16 09/16/16 09/16/16 03:58 10:27 10:27 WBC 19.0 H RBC 2.77 L Hgb 6.5 L Hct 20.9 L MCV 76 L MCH 23 L MCHC RDW 19.3 H Plt Count Lymph % (Auto) 11.0 L [place] % (Auto) Lymph # [place] # 1.1 H Seg Neutrophils % 82.5 H Seg Neuts % (Manual) Lymphocytes % (Manual) Monocytes % (Manual) Eosinophils % (Manual) Basophils % (Manual) Nucleated RBC % Seg Neutrophils # 15.7 H Seg Neutrophils # Man Lymphocytes # (Manual) Monocytes # (Manual) Eosinophils # (Manual) PT INR Fibrinogen dRVVT Confirm Interp Factor V Activity POC ABG pH POC ABG pCO2 POC ABG pO2 Sodium Potassium Chloride 109.3 H Carbon Dioxide 18 L BUN 139 H Creatinine 4.1 H Glucose 144 H POC Glucose 146 H Lactic Acid Calcium 8.1 L Phosphorus Magnesium Direct Bilirubin ALT Alkaline Phosphatase Troponin T C-Reactive Protein Total Protein Albumin Triglycerides Cholesterol LDL Cholesterol Direct HDL Cholesterol Urine WBC (Auto) Urine Creatinine Urine Total Protein Vancomycin Trough Rheumatoid Factor Complement C4 Miscellaneous Test Crossmatch 09/16/16 09/16/16 09/16/16 12:04 12:10 13:55 WBC RBC Hgb Hct MCV MCH MCHC RDW Plt Count Lymph % (Auto) [place] % (Auto) Lymph # [place] # Seg Neutrophils % Seg Neuts % (Manual) Lymphocytes % (Manual) Monocytes % (Manual) Eosinophils % (Manual) Basophils % (Manual) Nucleated RBC % Seg Neutrophils # Seg Neutrophils # Man Lymphocytes # (Manual) Monocytes # (Manual) Eosinophils # (Manual) PT INR Fibrinogen dRVVT Confirm Interp Factor V Activity POC ABG pH POC ABG pCO2 32.9 L POC ABG pO2 Sodium Potassium Chloride Carbon Dioxide BUN Creatinine Glucose POC Glucose 185 H Lactic Acid Calcium Phosphorus Magnesium Direct Bilirubin ALT Alkaline Phosphatase Troponin T C-Reactive Protein Total Protein Albumin Triglycerides Cholesterol LDL Cholesterol Direct HDL Cholesterol Urine WBC (Auto) Urine Creatinine Urine Total Protein Vancomycin Trough Rheumatoid Factor Complement C4 Miscellaneous Test Crossmatch See Detail 09/16/16 09/16/16 09/16/16 17:55 19:19 23:48 WBC RBC Hgb Hct MCV MCH MCHC RDW Plt Count Lymph % (Auto) [place] % (Auto) Lymph # [place] # Seg Neutrophils % Seg Neuts % (Manual) Lymphocytes % (Manual) Monocytes % (Manual) Eosinophils % (Manual) Basophils % (Manual) Nucleated RBC % Seg Neutrophils # Seg Neutrophils # Man Lymphocytes # (Manual) Monocytes # (Manual) Eosinophils # (Manual) PT INR Fibrinogen dRVVT Confirm Interp Factor V Activity POC ABG pH POC ABG pCO2 POC ABG pO2 Sodium Potassium Chloride Carbon Dioxide BUN Creatinine Glucose POC Glucose 222 H 107 H Lactic Acid Calcium Phosphorus Magnesium Direct Bilirubin ALT Alkaline Phosphatase Troponin T C-Reactive Protein Total Protein Albumin Triglycerides Cholesterol LDL Cholesterol Direct HDL Cholesterol Urine WBC (Auto) Urine Creatinine 47.4 H Urine Total Protein 16 H Vancomycin Trough Rheumatoid Factor Complement C4 Miscellaneous Test Crossmatch 09/17/16 09/17/16 09/17/16 03:45 03:45 04:55 WBC 19.6 H RBC 3.41 L Hgb 8.5 L Hct 26.7 L MCV 78 L MCH 25 L MCHC RDW 19.9 H Plt Count Lymph % (Auto) 9.3 L [place] % (Auto) Lymph # [place] # 1.2 H Seg Neutrophils % 83.9 H Seg Neuts % (Manual) Lymphocytes % (Manual) Monocytes % (Manual) Eosinophils % (Manual) Basophils % (Manual) Nucleated RBC % Seg Neutrophils # 16.4 H Seg Neutrophils # Man Lymphocytes # (Manual) Monocytes # (Manual) Eosinophils # (Manual) PT INR Fibrinogen dRVVT Confirm Interp Factor V Activity POC ABG pH POC ABG pCO2 POC ABG pO2 Sodium 146 H Potassium 5.1 H Chloride 110.9 H Carbon Dioxide 16 L BUN 146 H Creatinine 4.0 H Glucose 108 H POC Glucose 133 H Lactic Acid Calcium Phosphorus Magnesium 3.00 H Direct Bilirubin ALT Alkaline Phosphatase Troponin T C-Reactive Protein Total Protein Albumin Triglycerides Cholesterol LDL Cholesterol Direct HDL Cholesterol Urine WBC (Auto) Urine Creatinine Urine Total Protein Vancomycin Trough Rheumatoid Factor Complement C4 Miscellaneous Test Crossmatch 09/17/16 09/17/16 09/17/16 11:15 17:33 23:47 WBC RBC Hgb Hct MCV MCH MCHC RDW Plt Count Lymph % (Auto) [place] % (Auto) Lymph # [place] # Seg Neutrophils % Seg Neuts % (Manual) Lymphocytes % (Manual) Monocytes % (Manual) Eosinophils % (Manual) Basophils % (Manual) Nucleated RBC % Seg Neutrophils # Seg Neutrophils # Man Lymphocytes # (Manual) Monocytes # (Manual) Eosinophils # (Manual) PT INR Fibrinogen dRVVT Confirm Interp Factor V Activity POC ABG pH POC ABG pCO2 POC ABG pO2 Sodium Potassium Chloride Carbon Dioxide BUN Creatinine Glucose POC Glucose 176 H 246 H 148 H Lactic Acid Calcium Phosphorus Magnesium Direct Bilirubin ALT Alkaline Phosphatase Troponin T C-Reactive Protein Total Protein Albumin Triglycerides Cholesterol LDL Cholesterol Direct HDL Cholesterol Urine WBC (Auto) Urine Creatinine Urine Total Protein Vancomycin Trough Rheumatoid Factor Complement C4 Miscellaneous Test Crossmatch 09/18/16 09/18/16 09/18/16 05:33 08:31 08:31 WBC 18.0 H RBC 3.17 L Hgb 9.0 L Hct 25.7 L MCV MCH MCHC 35 H RDW 20.4 H Plt Count Lymph % (Auto) [place] % (Auto) Lymph # [place] # Seg Neutrophils % Seg Neuts % (Manual) Lymphocytes % (Manual) Monocytes % (Manual) Eosinophils % (Manual) Basophils % (Manual) Nucleated RBC % Seg Neutrophils # Seg Neutrophils # Man Lymphocytes # (Manual) Monocytes # (Manual) Eosinophils # (Manual) PT INR Fibrinogen dRVVT Confirm Interp Factor V Activity POC ABG pH POC ABG pCO2 POC ABG pO2 Sodium Potassium Chloride Carbon Dioxide 15 L BUN 124 H Creatinine 3.8 H Glucose POC Glucose 120 H Lactic Acid Calcium 8.1 L Phosphorus Magnesium Direct Bilirubin ALT Alkaline Phosphatase Troponin T C-Reactive Protein Total Protein Albumin Triglycerides Cholesterol LDL Cholesterol Direct HDL Cholesterol Urine WBC (Auto) Urine Creatinine Urine Total Protein Vancomycin Trough Rheumatoid Factor Complement C4 Miscellaneous Test Crossmatch 09/18/16 09/18/16 09/18/16 12:03 15:34 17:50 WBC RBC Hgb Hct MCV MCH MCHC RDW Plt Count Lymph % (Auto) [place] % (Auto) Lymph # [place] # Seg Neutrophils % Seg Neuts % (Manual) Lymphocytes % (Manual) Monocytes % (Manual) Eosinophils % (Manual) Basophils % (Manual) Nucleated RBC % Seg Neutrophils # Seg Neutrophils # Man Lymphocytes # (Manual) Monocytes # (Manual) Eosinophils # (Manual) PT INR Fibrinogen dRVVT Confirm Interp Factor V Activity POC ABG pH POC ABG pCO2 25.7 L POC ABG pO2 66 L Sodium Potassium Chloride Carbon Dioxide BUN Creatinine Glucose POC Glucose 156 H 220 H Lactic Acid Calcium Phosphorus Magnesium Direct Bilirubin ALT Alkaline Phosphatase Troponin T C-Reactive Protein Total Protein Albumin Triglycerides Cholesterol LDL Cholesterol Direct HDL Cholesterol Urine WBC (Auto) Urine Creatinine Urine Total Protein Vancomycin Trough Rheumatoid Factor Complement C4 Miscellaneous Test Crossmatch 09/19/16 09/19/16 09/19/16 06:21 09:50 09:50 WBC 17.1 H RBC 3.49 L Hgb 9.0 L Hct 28.1 L MCV MCH 26 L MCHC RDW 20.8 H Plt Count Lymph % (Auto) 11.5 L [place] % (Auto) 7.5 H Lymph # [place] # 1.3 H Seg Neutrophils % 79.8 H Seg Neuts % (Manual) Lymphocytes % (Manual) Monocytes % (Manual) Eosinophils % (Manual) Basophils % (Manual) Nucleated RBC % Seg Neutrophils # 13.7 H Seg Neutrophils # Man Lymphocytes # (Manual) Monocytes # (Manual) Eosinophils # (Manual) PT INR Fibrinogen dRVVT Confirm Interp Factor V Activity POC ABG pH POC ABG pCO2 POC ABG pO2 Sodium Potassium Chloride 108.6 H Carbon Dioxide 15 L BUN 125 H Creatinine 4.1 H Glucose 124 H POC Glucose 119 H Lactic Acid Calcium Phosphorus Magnesium Direct Bilirubin ALT Alkaline Phosphatase Troponin T C-Reactive Protein Total Protein Albumin Triglycerides Cholesterol LDL Cholesterol Direct HDL Cholesterol Urine WBC (Auto) Urine Creatinine Urine Total Protein Vancomycin Trough Rheumatoid Factor Complement C4 Miscellaneous Test Crossmatch 09/19/16 09/19/16 09/19/16 11:25 17:53 23:36 WBC RBC Hgb Hct MCV MCH MCHC RDW Plt Count Lymph % (Auto) [place] % (Auto) Lymph # [place] # Seg Neutrophils % Seg Neuts % (Manual) Lymphocytes % (Manual) Monocytes % (Manual) Eosinophils % (Manual) Basophils % (Manual) Nucleated RBC % Seg Neutrophils # Seg Neutrophils # Man Lymphocytes # (Manual) Monocytes # (Manual) Eosinophils # (Manual) PT INR Fibrinogen dRVVT Confirm Interp Factor V Activity POC ABG pH POC ABG pCO2 POC ABG pO2 Sodium Potassium Chloride Carbon Dioxide BUN Creatinine Glucose POC Glucose 160 H 245 H 121 H Lactic Acid Calcium Phosphorus Magnesium Direct Bilirubin ALT Alkaline Phosphatase Troponin T C-Reactive Protein Total Protein Albumin Triglycerides Cholesterol LDL Cholesterol Direct HDL Cholesterol Urine WBC (Auto) Urine Creatinine Urine Total Protein Vancomycin Trough Rheumatoid Factor Complement C4 Miscellaneous Test Crossmatch 09/20/16 09/20/16 09/20/16 04:10 04:10 04:10 WBC 17.0 H RBC 3.21 L Hgb 8.2 L Hct 25.5 L MCV MCH 26 L MCHC RDW 20.9 H Plt Count Lymph % (Auto) [place] % (Auto) Lymph # [place] # Seg Neutrophils % Seg Neuts % (Manual) Lymphocytes % (Manual) Monocytes % (Manual) Eosinophils % (Manual) Basophils % (Manual) Nucleated RBC % Seg Neutrophils # Seg Neutrophils # Man Lymphocytes # (Manual) Monocytes # (Manual) Eosinophils # (Manual) PT INR Fibrinogen dRVVT Confirm Interp Factor V Activity POC ABG pH POC ABG pCO2 POC ABG pO2 Sodium Potassium Chloride 111.0 H Carbon Dioxide 16 L BUN 129 H Creatinine 3.7 H Glucose 115 H POC Glucose Lactic Acid Calcium 8.2 L Phosphorus Magnesium Direct Bilirubin ALT Alkaline Phosphatase Troponin T C-Reactive Protein Total Protein Albumin Triglycerides 243 H Cholesterol LDL Cholesterol Direct HDL Cholesterol Urine WBC (Auto) Urine Creatinine Urine Total Protein Vancomycin Trough Rheumatoid Factor Complement C4 Miscellaneous Test Crossmatch 09/20/16 09/20/16 09/20/16 05:40 11:52 16:50 WBC RBC Hgb Hct MCV MCH MCHC RDW Plt Count Lymph % (Auto) [place] % (Auto) Lymph # [place] # Seg Neutrophils % Seg Neuts % (Manual) Lymphocytes % (Manual) Monocytes % (Manual) Eosinophils % (Manual) Basophils % (Manual) Nucleated RBC % Seg Neutrophils # Seg Neutrophils # Man Lymphocytes # (Manual) Monocytes # (Manual) Eosinophils # (Manual) PT INR Fibrinogen dRVVT Confirm Interp Factor V Activity POC ABG pH POC ABG pCO2 POC ABG pO2 Sodium Potassium Chloride Carbon Dioxide BUN Creatinine Glucose POC Glucose 131 H 183 H 236 H Lactic Acid Calcium Phosphorus Magnesium Direct Bilirubin ALT Alkaline Phosphatase Troponin T C-Reactive Protein Total Protein Albumin Triglycerides Cholesterol LDL Cholesterol Direct HDL Cholesterol Urine WBC (Auto) Urine Creatinine Urine Total Protein Vancomycin Trough Rheumatoid Factor Complement C4 Miscellaneous Test Crossmatch 09/20/16 09/21/16 09/21/16 23:51 03:30 04:44 WBC RBC Hgb Hct MCV MCH MCHC RDW Plt Count Lymph % (Auto) [place] % (Auto) Lymph # [place] # Seg Neutrophils % Seg Neuts % (Manual) Lymphocytes % (Manual) Monocytes % (Manual) Eosinophils % (Manual) Basophils % (Manual) Nucleated RBC % Seg Neutrophils # Seg Neutrophils # Man Lymphocytes # (Manual) Monocytes # (Manual) Eosinophils # (Manual) PT INR Fibrinogen dRVVT Confirm Interp Factor V Activity POC ABG pH POC ABG pCO2 POC ABG pO2 Sodium Potassium Chloride Carbon Dioxide BUN Creatinine Glucose POC Glucose 114 H 141 H Lactic Acid Calcium Phosphorus Magnesium 2.70 H Direct Bilirubin ALT Alkaline Phosphatase Troponin T C-Reactive Protein Total Protein Albumin Triglycerides Cholesterol LDL Cholesterol Direct HDL Cholesterol Urine WBC (Auto) Urine Creatinine Urine Total Protein Vancomycin Trough Rheumatoid Factor Complement C4 Miscellaneous Test Crossmatch 09/21/16 09/21/16 09/21/16 07:45 07:45 10:01 WBC 13.8 H RBC 2.94 L Hgb 7.5 L Hct 23.5 L MCV MCH 26 L MCHC RDW 21.2 H Plt Count Lymph % (Auto) 6.9 L [place] % (Auto) 9.4 H Lymph # 0.9 L [place] # 1.3 H Seg Neutrophils % 83.2 H Seg Neuts % (Manual) Lymphocytes % (Manual) Monocytes % (Manual) Eosinophils % (Manual) Basophils % (Manual) Nucleated RBC % Seg Neutrophils # 11.5 H Seg Neutrophils # Man Lymphocytes # (Manual) Monocytes # (Manual) Eosinophils # (Manual) PT INR Fibrinogen dRVVT Confirm Interp Factor V Activity POC ABG pH 7.308 L POC ABG pCO2 31.9 L POC ABG pO2 148 H Sodium 147 H Potassium Chloride 114.2 H Carbon Dioxide 15 L BUN 120 H Creatinine 3.9 H Glucose 156 H POC Glucose Lactic Acid Calcium 8.2 L Phosphorus Magnesium Direct Bilirubin ALT Alkaline Phosphatase Troponin T C-Reactive Protein Total Protein Albumin Triglycerides Cholesterol LDL Cholesterol Direct HDL Cholesterol Urine WBC (Auto) Urine Creatinine Urine Total Protein Vancomycin Trough Rheumatoid Factor Complement C4 Miscellaneous Test Crossmatch 09/21/16 09/21/16 09/21/16 12:00 12:03 13:00 WBC RBC Hgb Hct MCV MCH MCHC RDW Plt Count Lymph % (Auto) [place] % (Auto) Lymph # [place] # Seg Neutrophils % Seg Neuts % (Manual) Lymphocytes % (Manual) Monocytes % (Manual) Eosinophils % (Manual) Basophils % (Manual) Nucleated RBC % Seg Neutrophils # Seg Neutrophils # Man Lymphocytes # (Manual) Monocytes # (Manual) Eosinophils # (Manual) PT INR Fibrinogen dRVVT Confirm Interp Factor V Activity POC ABG pH POC ABG pCO2 POC ABG pO2 Sodium Potassium Chloride Carbon Dioxide BUN Creatinine Glucose POC Glucose 163 H Lactic Acid Calcium Phosphorus Magnesium Direct Bilirubin ALT Alkaline Phosphatase Troponin T C-Reactive Protein Total Protein Albumin Triglycerides Cholesterol LDL Cholesterol Direct HDL Cholesterol Urine WBC (Auto) Urine Creatinine 54.8 H Urine Total Protein Vancomycin Trough 2.3 L Rheumatoid Factor Complement C4 Miscellaneous Test Crossmatch 09/21/16 09/21/16 09/22/16 16:51 23:17 06:27 WBC RBC Hgb Hct MCV MCH MCHC RDW Plt Count Lymph % (Auto) [place] % (Auto) Lymph # [place] # Seg Neutrophils % Seg Neuts % (Manual) Lymphocytes % (Manual) Monocytes % (Manual) Eosinophils % (Manual) Basophils % (Manual) Nucleated RBC % Seg Neutrophils # Seg Neutrophils # Man Lymphocytes # (Manual) Monocytes # (Manual) Eosinophils # (Manual) PT INR Fibrinogen dRVVT Confirm Interp Factor V Activity POC ABG pH POC ABG pCO2 POC ABG pO2 Sodium Potassium Chloride Carbon Dioxide BUN Creatinine Glucose POC Glucose 206 H 114 H 115 H Lactic Acid Calcium Phosphorus Magnesium Direct Bilirubin ALT Alkaline Phosphatase Troponin T C-Reactive Protein Total Protein Albumin Triglycerides Cholesterol LDL Cholesterol Direct HDL Cholesterol Urine WBC (Auto) Urine Creatinine Urine Total Protein Vancomycin Trough Rheumatoid Factor Complement C4 Miscellaneous Test Crossmatch 09/22/16 09/22/16 09/22/16 07:50 07:50 12:00 WBC 17.8 H RBC 3.04 L Hgb 8.0 L Hct 24.7 L MCV MCH 26 L MCHC RDW 21.6 H Plt Count Lymph % (Auto) [place] % (Auto) Lymph # [place] # Seg Neutrophils % Seg Neuts % (Manual) Lymphocytes % (Manual) Monocytes % (Manual) Eosinophils % (Manual) Basophils % (Manual) Nucleated RBC % Seg Neutrophils # Seg Neutrophils # Man Lymphocytes # (Manual) Monocytes # (Manual) Eosinophils # (Manual) PT INR Fibrinogen dRVVT Confirm Interp Factor V Activity POC ABG pH POC ABG pCO2 POC ABG pO2 Sodium 150 H Potassium Chloride 118.2 H Carbon Dioxide 14 L BUN 111 H Creatinine 3.7 H Glucose 157 H POC Glucose 183 H Lactic Acid Calcium Phosphorus Magnesium Direct Bilirubin ALT Alkaline Phosphatase Troponin T C-Reactive Protein Total Protein Albumin Triglycerides Cholesterol LDL Cholesterol Direct HDL Cholesterol Urine WBC (Auto) Urine Creatinine Urine Total Protein Vancomycin Trough Rheumatoid Factor Complement C4 Miscellaneous Test Crossmatch 09/22/16 09/22/16 09/23/16 17:29 23:10 05:00 WBC 19.2 H RBC 3.13 L Hgb 8.0 L Hct 25.2 L MCV MCH 26 L MCHC RDW 22.1 H Plt Count Lymph % (Auto) [place] % (Auto) Lymph # [place] # Seg Neutrophils % Seg Neuts % (Manual) 92.0 H Lymphocytes % (Manual) 3.0 L Monocytes % (Manual) Eosinophils % (Manual) Basophils % (Manual) Nucleated RBC % Seg Neutrophils # Seg Neutrophils # Man 17.7 H Lymphocytes # (Manual) 0.6 L Monocytes # (Manual) Eosinophils # (Manual) PT INR Fibrinogen dRVVT Confirm Interp Factor V Activity POC ABG pH POC ABG pCO2 POC ABG pO2 Sodium Potassium Chloride Carbon Dioxide BUN Creatinine Glucose POC Glucose 197 H 169 H Lactic Acid Calcium Phosphorus Magnesium Direct Bilirubin ALT Alkaline Phosphatase Troponin T C-Reactive Protein Total Protein Albumin Triglycerides Cholesterol LDL Cholesterol Direct HDL Cholesterol Urine WBC (Auto) Urine Creatinine Urine Total Protein Vancomycin Trough Rheumatoid Factor Complement C4 Miscellaneous Test Crossmatch 09/23/16 09/23/16 09/23/16 05:00 05:00 05:10 WBC RBC Hgb Hct MCV MCH MCHC RDW Plt Count Lymph % (Auto) [place] % (Auto) Lymph # [place] # Seg Neutrophils % Seg Neuts % (Manual) Lymphocytes % (Manual) Monocytes % (Manual) Eosinophils % (Manual) Basophils % (Manual) Nucleated RBC % Seg Neutrophils # Seg Neutrophils # Man Lymphocytes # (Manual) Monocytes # (Manual) Eosinophils # (Manual) PT INR Fibrinogen dRVVT Confirm Interp Factor V Activity POC ABG pH POC ABG pCO2 POC ABG pO2 Sodium 147 H Potassium 3.2 L Chloride 115.7 H Carbon Dioxide 13 L BUN 111 H Creatinine 3.8 H Glucose 194 H POC Glucose 188 H Lactic Acid Calcium 7.3 L D Phosphorus Magnesium Direct Bilirubin ALT Alkaline Phosphatase Troponin T C-Reactive Protein 3.20 H Total Protein Albumin Triglycerides Cholesterol LDL Cholesterol Direct HDL Cholesterol Urine WBC (Auto) Urine Creatinine Urine Total Protein Vancomycin Trough Rheumatoid Factor Complement C4 Miscellaneous Test Crossmatch 09/23/16 09/23/16 09/23/16 11:37 12:29 18:01 WBC RBC Hgb Hct MCV MCH MCHC RDW Plt Count Lymph % (Auto) [place] % (Auto) Lymph # [place] # Seg Neutrophils % Seg Neuts % (Manual) Lymphocytes % (Manual) Monocytes % (Manual) Eosinophils % (Manual) Basophils % (Manual) Nucleated RBC % Seg Neutrophils # Seg Neutrophils # Man Lymphocytes # (Manual) Monocytes # (Manual) Eosinophils # (Manual) PT INR Fibrinogen dRVVT Confirm Interp Factor V Activity POC ABG pH POC ABG pCO2 18.9 L POC ABG pO2 143 H Sodium Potassium Chloride Carbon Dioxide BUN Creatinine Glucose POC Glucose 153 H 108 H Lactic Acid Calcium Phosphorus Magnesium Direct Bilirubin ALT Alkaline Phosphatase Troponin T C-Reactive Protein Total Protein Albumin Triglycerides Cholesterol LDL Cholesterol Direct HDL Cholesterol Urine WBC (Auto) Urine Creatinine Urine Total Protein Vancomycin Trough Rheumatoid Factor Complement C4 Miscellaneous Test Crossmatch 09/23/16 09/23/16 09/24/16 21:19 23:43 05:16 WBC RBC Hgb Hct MCV MCH MCHC RDW Plt Count Lymph % (Auto) [place] % (Auto) Lymph # [place] # Seg Neutrophils % Seg Neuts % (Manual) Lymphocytes % (Manual) Monocytes % (Manual) Eosinophils % (Manual) Basophils % (Manual) Nucleated RBC % Seg Neutrophils # Seg Neutrophils # Man Lymphocytes # (Manual) Monocytes # (Manual) Eosinophils # (Manual) PT INR Fibrinogen dRVVT Confirm Interp Factor V Activity POC ABG pH POC ABG pCO2 17.3 L POC ABG pO2 112 H Sodium Potassium Chloride Carbon Dioxide BUN Creatinine Glucose POC Glucose 143 H 164 H Lactic Acid Calcium Phosphorus Magnesium Direct Bilirubin ALT Alkaline Phosphatase Troponin T C-Reactive Protein Total Protein Albumin Triglycerides Cholesterol LDL Cholesterol Direct HDL Cholesterol Urine WBC (Auto) Urine Creatinine Urine Total Protein Vancomycin Trough Rheumatoid Factor Complement C4 Miscellaneous Test Crossmatch 09/24/16 09/24/16 09/24/16 05:21 11:58 17:06 WBC RBC Hgb Hct MCV MCH MCHC RDW Plt Count Lymph % (Auto) [place] % (Auto) Lymph # [place] # Seg Neutrophils % Seg Neuts % (Manual) Lymphocytes % (Manual) Monocytes % (Manual) Eosinophils % (Manual) Basophils % (Manual) Nucleated RBC % Seg Neutrophils # Seg Neutrophils # Man Lymphocytes # (Manual) Monocytes # (Manual) Eosinophils # (Manual) PT INR Fibrinogen dRVVT Confirm Interp Factor V Activity POC ABG pH POC ABG pCO2 POC ABG pO2 Sodium Potassium Chloride Carbon Dioxide 10 L BUN 103 H Creatinine 4.3 H Glucose 163 H POC Glucose 173 H 167 H Lactic Acid Calcium 6.5 L Phosphorus Magnesium Direct Bilirubin ALT Alkaline Phosphatase Troponin T C-Reactive Protein Total Protein Albumin Triglycerides Cholesterol LDL Cholesterol Direct HDL Cholesterol Urine WBC (Auto) Urine Creatinine Urine Total Protein Vancomycin Trough Rheumatoid Factor Complement C4 Miscellaneous Test Crossmatch 09/24/16 09/24/16 09/24/16 20:15 21:02 23:48 WBC RBC Hgb Hct MCV MCH MCHC RDW Plt Count Lymph % (Auto) [place] % (Auto) Lymph # [place] # Seg Neutrophils % Seg Neuts % (Manual) Lymphocytes % (Manual) Monocytes % (Manual) Eosinophils % (Manual) Basophils % (Manual) Nucleated RBC % Seg Neutrophils # Seg Neutrophils # Man Lymphocytes # (Manual) Monocytes # (Manual) Eosinophils # (Manual) PT INR Fibrinogen dRVVT Confirm Interp Factor V Activity POC ABG pH 7.288 L POC ABG pCO2 30.2 L 21.5 L POC ABG pO2 32 L 39 L Sodium Potassium Chloride Carbon Dioxide BUN Creatinine Glucose POC Glucose 109 H Lactic Acid Calcium Phosphorus Magnesium Direct Bilirubin ALT Alkaline Phosphatase Troponin T C-Reactive Protein Total Protein Albumin Triglycerides Cholesterol LDL Cholesterol Direct HDL Cholesterol Urine WBC (Auto) Urine Creatinine Urine Total Protein Vancomycin Trough Rheumatoid Factor Complement C4 Miscellaneous Test Crossmatch 09/25/16 09/25/16 09/25/16 04:20 04:20 04:20 WBC RBC 2.58 L Hgb 7.0 L Hct 21.0 L MCV MCH 27 L MCHC RDW 23.8 H Plt Count Lymph % (Auto) [place] % (Auto) Lymph # [place] # Seg Neutrophils % Seg Neuts % (Manual) Lymphocytes % (Manual) 12.0 L Monocytes % (Manual) Eosinophils % (Manual) 7.0 H Basophils % (Manual) 2.0 H Nucleated RBC % Seg Neutrophils # Seg Neutrophils # Man Lymphocytes # (Manual) 0.9 L Monocytes # (Manual) Eosinophils # (Manual) 0.5 H PT INR Fibrinogen dRVVT Confirm Interp Factor V Activity POC ABG pH POC ABG pCO2 POC ABG pO2 Sodium Potassium Chloride Carbon Dioxide 15 L BUN 72 H Creatinine 3.8 H Glucose POC Glucose Lactic Acid Calcium 6.0 L Phosphorus 4.60 H Magnesium 1.60 L Direct Bilirubin ALT Alkaline Phosphatase Troponin T C-Reactive Protein Total Protein Albumin Triglycerides Cholesterol LDL Cholesterol Direct HDL Cholesterol Urine WBC (Auto) Urine Creatinine Urine Total Protein Vancomycin Trough Rheumatoid Factor Complement C4 Miscellaneous Test Crossmatch 09/25/16 09/25/16 09/25/16 04:57 08:02 10:30 WBC RBC Hgb Hct MCV MCH MCHC RDW Plt Count Lymph % (Auto) [place] % (Auto) Lymph # [place] # Seg Neutrophils % Seg Neuts % (Manual) Lymphocytes % (Manual) Monocytes % (Manual) Eosinophils % (Manual) Basophils % (Manual) Nucleated RBC % Seg Neutrophils # Seg Neutrophils # Man Lymphocytes # (Manual) Monocytes # (Manual) Eosinophils # (Manual) PT INR Fibrinogen dRVVT Confirm Interp Factor V Activity POC ABG pH POC ABG pCO2 24.7 L POC ABG pO2 152 H Sodium Potassium Chloride Carbon Dioxide BUN Creatinine Glucose POC Glucose 113 H Lactic Acid Calcium Phosphorus Magnesium Direct Bilirubin ALT Alkaline Phosphatase Troponin T C-Reactive Protein Total Protein Albumin Triglycerides Cholesterol LDL Cholesterol Direct HDL Cholesterol Urine WBC (Auto) Urine Creatinine Urine Total Protein Vancomycin Trough Rheumatoid Factor Complement C4 Miscellaneous Test Crossmatch See Detail 09/25/16 09/25/16 09/25/16 12:05 17:44 23:47 WBC RBC Hgb Hct MCV MCH MCHC RDW Plt Count Lymph % (Auto) [place] % (Auto) Lymph # [place] # Seg Neutrophils % Seg Neuts % (Manual) Lymphocytes % (Manual) Monocytes % (Manual) Eosinophils % (Manual) Basophils % (Manual) Nucleated RBC % Seg Neutrophils # Seg Neutrophils # Man Lymphocytes # (Manual) Monocytes # (Manual) Eosinophils # (Manual) PT INR Fibrinogen dRVVT Confirm Interp Factor V Activity POC ABG pH POC ABG pCO2 POC ABG pO2 Sodium Potassium Chloride Carbon Dioxide BUN Creatinine Glucose POC Glucose 117 H 119 H 150 H Lactic Acid Calcium Phosphorus Magnesium Direct Bilirubin ALT Alkaline Phosphatase Troponin T C-Reactive Protein Total Protein Albumin Triglycerides Cholesterol LDL Cholesterol Direct HDL Cholesterol Urine WBC (Auto) Urine Creatinine Urine Total Protein Vancomycin Trough Rheumatoid Factor Complement C4 Miscellaneous Test Crossmatch 09/26/16 09/26/16 09/26/16 04:25 04:25 04:25 WBC RBC 2.65 L Hgb 7.4 L Hct 21.6 L MCV MCH MCHC RDW 22.5 H Plt Count Lymph % (Auto) [place] % (Auto) Lymph # [place] # Seg Neutrophils % Seg Neuts % (Manual) Lymphocytes % (Manual) 6.0 L Monocytes % (Manual) Eosinophils % (Manual) 11.0 H Basophils % (Manual) Nucleated RBC % Seg Neutrophils # Seg Neutrophils # Man Lymphocytes # (Manual) 0.4 L Monocytes # (Manual) Eosinophils # (Manual) 0.6 H PT INR Fibrinogen dRVVT Confirm Interp Factor V Activity POC ABG pH POC ABG pCO2 POC ABG pO2 Sodium Potassium Chloride 97.0 L Carbon Dioxide 19 L BUN 43 H Creatinine 2.6 H Glucose 130 H POC Glucose Lactic Acid 4.40 H* Calcium 6.7 L Phosphorus Magnesium Direct Bilirubin ALT Alkaline Phosphatase Troponin T C-Reactive Protein Total Protein Albumin Triglycerides Cholesterol LDL Cholesterol Direct HDL Cholesterol Urine WBC (Auto) Urine Creatinine Urine Total Protein Vancomycin Trough Rheumatoid Factor Complement C4 Miscellaneous Test Crossmatch 09/26/16 09/26/16 09/26/16 05:20 11:44 12:12 WBC RBC Hgb Hct MCV MCH MCHC RDW Plt Count Lymph % (Auto) [place] % (Auto) Lymph # [place] # Seg Neutrophils % Seg Neuts % (Manual) Lymphocytes % (Manual) Monocytes % (Manual) Eosinophils % (Manual) Basophils % (Manual) Nucleated RBC % Seg Neutrophils # Seg Neutrophils # Man Lymphocytes # (Manual) Monocytes # (Manual) Eosinophils # (Manual) PT INR Fibrinogen dRVVT Confirm Interp Factor V Activity POC ABG pH POC ABG pCO2 27.0 L POC ABG pO2 69 L Sodium Potassium Chloride Carbon Dioxide BUN Creatinine Glucose POC Glucose 121 H 128 H Lactic Acid Calcium Phosphorus Magnesium Direct Bilirubin ALT Alkaline Phosphatase Troponin T C-Reactive Protein Total Protein Albumin Triglycerides Cholesterol LDL Cholesterol Direct HDL Cholesterol Urine WBC (Auto) Urine Creatinine Urine Total Protein Vancomycin Trough Rheumatoid Factor Complement C4 Miscellaneous Test Crossmatch 09/26/16 09/26/16 09/27/16 18:31 23:40 08:20 WBC RBC Hgb Hct MCV MCH MCHC RDW Plt Count Lymph % (Auto) [place] % (Auto) Lymph # [place] # Seg Neutrophils % Seg Neuts % (Manual) Lymphocytes % (Manual) Monocytes % (Manual) Eosinophils % (Manual) Basophils % (Manual) Nucleated RBC % Seg Neutrophils # Seg Neutrophils # Man Lymphocytes # (Manual) Monocytes # (Manual) Eosinophils # (Manual) PT INR Fibrinogen dRVVT Confirm Interp Factor V Activity POC ABG pH POC ABG pCO2 POC ABG pO2 Sodium Potassium Chloride Carbon Dioxide BUN Creatinine Glucose POC Glucose 120 H 133 H Lactic Acid 4.10 H* Calcium Phosphorus Magnesium Direct Bilirubin ALT Alkaline Phosphatase Troponin T C-Reactive Protein Total Protein Albumin Triglycerides Cholesterol LDL Cholesterol Direct HDL Cholesterol Urine WBC (Auto) Urine Creatinine Urine Total Protein Vancomycin Trough Rheumatoid Factor Complement C4 Miscellaneous Test Crossmatch 09/27/16 09/27/16 09/27/16 11:23 15:00 18:15 WBC RBC Hgb Hct MCV MCH MCHC RDW Plt Count Lymph % (Auto) [place] % (Auto) Lymph # [place] # Seg Neutrophils % Seg Neuts % (Manual) Lymphocytes % (Manual) Monocytes % (Manual) Eosinophils % (Manual) Basophils % (Manual) Nucleated RBC % Seg Neutrophils # Seg Neutrophils # Man Lymphocytes # (Manual) Monocytes # (Manual) Eosinophils # (Manual) PT INR Fibrinogen dRVVT Confirm Interp Factor V Activity POC ABG pH 7.459 H POC ABG pCO2 27.1 L POC ABG pO2 140 H Sodium Potassium Chloride Carbon Dioxide BUN Creatinine Glucose POC Glucose 114 H 127 H Lactic Acid Calcium Phosphorus Magnesium Direct Bilirubin ALT Alkaline Phosphatase Troponin T C-Reactive Protein Total Protein Albumin Triglycerides Cholesterol LDL Cholesterol Direct HDL Cholesterol Urine WBC (Auto) Urine Creatinine Urine Total Protein Vancomycin Trough Rheumatoid Factor Complement C4 Miscellaneous Test Crossmatch 09/27/16 09/27/16 09/28/16 Unknown Unknown 03:45 WBC RBC 2.49 L Hgb 6.8 L Hct 20.7 L MCV MCH 27 L MCHC RDW 22.1 H Plt Count Lymph % (Auto) [place] % (Auto) Lymph # [place] # Seg Neutrophils % Seg Neuts % (Manual) 32.0 L Lymphocytes % (Manual) 12.0 L Monocytes % (Manual) 11.0 H Eosinophils % (Manual) 10.0 H Basophils % (Manual) Nucleated RBC % Seg Neutrophils # Seg Neutrophils # Man Lymphocytes # (Manual) 1.0 L Monocytes # (Manual) 0.9 H Eosinophils # (Manual) 0.8 H PT INR Fibrinogen dRVVT Confirm Interp Factor V Activity POC ABG pH POC ABG pCO2 POC ABG pO2 Sodium 135 L 135 L Potassium 3.5 L Chloride 93.6 L 94.4 L Carbon Dioxide 17 L 21 L BUN 45 H 28 H Creatinine 3.3 H 2.5 H Glucose 106 H POC Glucose Lactic Acid Calcium 7.3 L 7.1 L Phosphorus Magnesium Direct Bilirubin ALT Alkaline Phosphatase Troponin T C-Reactive Protein Total Protein Albumin Triglycerides Cholesterol LDL Cholesterol Direct HDL Cholesterol Urine WBC (Auto) Urine Creatinine Urine Total Protein Vancomycin Trough Rheumatoid Factor Complement C4 Miscellaneous Test Crossmatch 09/28/16 09/28/16 09/28/16 03:45 07:25 11:58 WBC 13.3 H RBC 3.01 L Hgb 8.4 L Hct 25.0 L MCV MCH MCHC RDW 20.5 H Plt Count 128 L Lymph % (Auto) [place] % (Auto) Lymph # [place] # Seg Neutrophils % Seg Neuts % (Manual) Lymphocytes % (Manual) 7.0 L Monocytes % (Manual) Eosinophils % (Manual) 6.0 H Basophils % (Manual) Nucleated RBC % Seg Neutrophils # Seg Neutrophils # Man Lymphocytes # (Manual) 0.9 L Monocytes # (Manual) Eosinophils # (Manual) 0.8 H PT INR Fibrinogen dRVVT Confirm Interp Factor V Activity POC ABG pH POC ABG pCO2 POC ABG pO2 Sodium Potassium Chloride Carbon Dioxide BUN Creatinine Glucose POC Glucose 121 H Lactic Acid 4.50 H* Calcium Phosphorus Magnesium Direct Bilirubin ALT Alkaline Phosphatase Troponin T C-Reactive Protein Total Protein Albumin Triglycerides Cholesterol LDL Cholesterol Direct HDL Cholesterol Urine WBC (Auto) Urine Creatinine Urine Total Protein Vancomycin Trough Rheumatoid Factor Complement C4 Miscellaneous Test Crossmatch 09/29/16 09/29/16 09/29/16 06:45 06:45 06:45 WBC 14.9 H RBC 2.74 L Hgb 7.6 L Hct 23.2 L MCV MCH MCHC RDW 20.5 H Plt Count 81 L Lymph % (Auto) [place] % (Auto) Lymph # [place] # Seg Neutrophils % Seg Neuts % (Manual) 81.0 H Lymphocytes % (Manual) 4.0 L Monocytes % (Manual) Eosinophils % (Manual) Basophils % (Manual) Nucleated RBC % Seg Neutrophils # Seg Neutrophils # Man 12.1 H Lymphocytes # (Manual) 0.6 L Monocytes # (Manual) Eosinophils # (Manual) PT INR Fibrinogen dRVVT Confirm Interp Factor V Activity POC ABG pH POC ABG pCO2 POC ABG pO2 Sodium 133 L Potassium 3.4 L Chloride 92.5 L Carbon Dioxide 21 L BUN 33 H Creatinine 3.0 H Glucose POC Glucose Lactic Acid Calcium 6.6 L Phosphorus Magnesium 1.40 L Direct Bilirubin 0.9 H ALT Alkaline Phosphatase Troponin T C-Reactive Protein Total Protein 4.3 L Albumin 1.3 L Triglycerides Cholesterol LDL Cholesterol Direct HDL Cholesterol Urine WBC (Auto) Urine Creatinine Urine Total Protein Vancomycin Trough Rheumatoid Factor Complement C4 Miscellaneous Test Crossmatch 09/29/16 09/29/16 09/30/16 17:52 20:12 00:07 WBC RBC Hgb Hct MCV MCH MCHC RDW Plt Count Lymph % (Auto) [place] % (Auto) Lymph # [place] # Seg Neutrophils % Seg Neuts % (Manual) Lymphocytes % (Manual) Monocytes % (Manual) Eosinophils % (Manual) Basophils % (Manual) Nucleated RBC % Seg Neutrophils # Seg Neutrophils # Man Lymphocytes # (Manual) Monocytes # (Manual) Eosinophils # (Manual) PT INR Fibrinogen dRVVT Confirm Interp Factor V Activity POC ABG pH POC ABG pCO2 POC ABG pO2 Sodium Potassium Chloride Carbon Dioxide BUN Creatinine Glucose POC Glucose 50 L 51 L Lactic Acid Calcium Phosphorus Magnesium Direct Bilirubin ALT Alkaline Phosphatase Troponin T 0.204 H* C-Reactive Protein Total Protein Albumin Triglycerides Cholesterol 31 L LDL Cholesterol Direct 4 L HDL Cholesterol 3 L Urine WBC (Auto) Urine Creatinine Urine Total Protein Vancomycin Trough Rheumatoid Factor Complement C4 Miscellaneous Test Crossmatch 09/30/16 09/30/16 09/30/16 01:30 05:15 06:10 WBC RBC Hgb Hct MCV MCH MCHC RDW Plt Count Lymph % (Auto) [place] % (Auto) Lymph # [place] # Seg Neutrophils % Seg Neuts % (Manual) Lymphocytes % (Manual) Monocytes % (Manual) Eosinophils % (Manual) Basophils % (Manual) Nucleated RBC % Seg Neutrophils # Seg Neutrophils # Man Lymphocytes # (Manual) Monocytes # (Manual) Eosinophils # (Manual) PT INR Fibrinogen dRVVT Confirm Interp Factor V Activity POC ABG pH POC ABG pCO2 POC ABG pO2 Sodium 133 L Potassium 3.2 L Chloride 93.2 L Carbon Dioxide 19 L BUN 36 H Creatinine 3.2 H Glucose 104 H POC Glucose 167 H 146 H Lactic Acid Calcium 6.4 L Phosphorus Magnesium 1.60 L Direct Bilirubin ALT Alkaline Phosphatase Troponin T C-Reactive Protein Total Protein Albumin Triglycerides Cholesterol LDL Cholesterol Direct HDL Cholesterol Urine WBC (Auto) Urine Creatinine Urine Total Protein Vancomycin Trough Rheumatoid Factor Complement C4 Miscellaneous Test Crossmatch 09/30/16 09/30/16 09/30/16 11:26 13:39 18:38 WBC RBC Hgb Hct MCV MCH MCHC RDW Plt Count Lymph % (Auto) [place] % (Auto) Lymph # [place] # Seg Neutrophils % Seg Neuts % (Manual) Lymphocytes % (Manual) Monocytes % (Manual) Eosinophils % (Manual) Basophils % (Manual) Nucleated RBC % Seg Neutrophils # Seg Neutrophils # Man Lymphocytes # (Manual) Monocytes # (Manual) Eosinophils # (Manual) PT INR Fibrinogen dRVVT Confirm Interp Factor V Activity POC ABG pH 7.479 H POC ABG pCO2 29.8 L POC ABG pO2 117 H Sodium Potassium Chloride Carbon Dioxide BUN Creatinine Glucose POC Glucose 140 H 122 H Lactic Acid Calcium Phosphorus Magnesium Direct Bilirubin ALT Alkaline Phosphatase Troponin T C-Reactive Protein Total Protein Albumin Triglycerides Cholesterol LDL Cholesterol Direct HDL Cholesterol Urine WBC (Auto) Urine Creatinine Urine Total Protein Vancomycin Trough Rheumatoid Factor Complement C4 Miscellaneous Test Crossmatch 10/01/16 10/01/16 10/01/16 06:00 06:00 12:37 WBC 12.6 H RBC 2.75 L Hgb 7.3 L Hct 23.3 L MCV MCH 27 L MCHC RDW 20.6 H Plt Count 72 L Lymph % (Auto) [place] % (Auto) Lymph # [place] # Seg Neutrophils % Seg Neuts % (Manual) 31.0 L Lymphocytes % (Manual) 8.0 L Monocytes % (Manual) Eosinophils % (Manual) Basophils % (Manual) Nucleated RBC % 3.0 H Seg Neutrophils # Seg Neutrophils # Man Lymphocytes # (Manual) 1.0 L Monocytes # (Manual) Eosinophils # (Manual) PT INR Fibrinogen dRVVT Confirm Interp Factor V Activity POC ABG pH POC ABG pCO2 POC ABG pO2 Sodium 127 L Potassium Chloride 86.8 L Carbon Dioxide 20 L BUN 42 H Creatinine 3.5 H Glucose POC Glucose 65 L Lactic Acid Calcium 7.0 L Phosphorus Magnesium Direct Bilirubin ALT Alkaline Phosphatase Troponin T C-Reactive Protein Total Protein Albumin Triglycerides Cholesterol LDL Cholesterol Direct HDL Cholesterol Urine WBC (Auto) Urine Creatinine Urine Total Protein Vancomycin Trough Rheumatoid Factor Complement C4 Miscellaneous Test Crossmatch 10/01/16 10/01/16 10/02/16 17:39 23:32 00:59 WBC RBC Hgb Hct MCV MCH MCHC RDW Plt Count Lymph % (Auto) [place] % (Auto) Lymph # [place] # Seg Neutrophils % Seg Neuts % (Manual) Lymphocytes % (Manual) Monocytes % (Manual) Eosinophils % (Manual) Basophils % (Manual) Nucleated RBC % Seg Neutrophils # Seg Neutrophils # Man Lymphocytes # (Manual) Monocytes # (Manual) Eosinophils # (Manual) PT INR Fibrinogen dRVVT Confirm Interp Factor V Activity POC ABG pH POC ABG pCO2 POC ABG pO2 Sodium Potassium Chloride Carbon Dioxide BUN Creatinine Glucose POC Glucose 107 H 52 L 145 H Lactic Acid Calcium Phosphorus Magnesium Direct Bilirubin ALT Alkaline Phosphatase Troponin T C-Reactive Protein Total Protein Albumin Triglycerides Cholesterol LDL Cholesterol Direct HDL Cholesterol Urine WBC (Auto) Urine Creatinine Urine Total Protein Vancomycin Trough Rheumatoid Factor Complement C4 Miscellaneous Test Crossmatch 10/02/16 10/02/16 10/02/16 10:30 10:50 10:50 WBC 14.7 H RBC 2.76 L Hgb 7.4 L Hct 23.6 L MCV MCH 27 L MCHC RDW 20.2 H Plt Count 79 L Lymph % (Auto) [place] % (Auto) Lymph # [place] # Seg Neutrophils % Seg Neuts % (Manual) 86.0 H Lymphocytes % (Manual) 6.0 L Monocytes % (Manual) Eosinophils % (Manual) Basophils % (Manual) Nucleated RBC % Seg Neutrophils # Seg Neutrophils # Man 12.6 H Lymphocytes # (Manual) 0.9 L Monocytes # (Manual) Eosinophils # (Manual) PT INR Fibrinogen dRVVT Confirm Interp Factor V Activity POC ABG pH 7.486 H POC ABG pCO2 30.1 L POC ABG pO2 108 H Sodium 131 L Potassium 3.4 L Chloride 89.9 L Carbon Dioxide BUN 26 H Creatinine 2.6 H Glucose POC Glucose Lactic Acid Calcium 7.0 L Phosphorus Magnesium Direct Bilirubin ALT Alkaline Phosphatase Troponin T C-Reactive Protein Total Protein Albumin Triglycerides Cholesterol LDL Cholesterol Direct HDL Cholesterol Urine WBC (Auto) Urine Creatinine Urine Total Protein Vancomycin Trough Rheumatoid Factor Complement C4 Miscellaneous Test Crossmatch 10/02/16 10/03/16 10/03/16 23:45 00:45 05:10 WBC 12.9 H RBC 2.77 L Hgb 7.6 L Hct 23.7 L MCV MCH 27 L MCHC RDW 19.7 H Plt Count 89 L Lymph % (Auto) [place] % (Auto) Lymph # [place] # Seg Neutrophils % Seg Neuts % (Manual) Lymphocytes % (Manual) 8.0 L Monocytes % (Manual) Eosinophils % (Manual) Basophils % (Manual) Nucleated RBC % Seg Neutrophils # 11.9 H Seg Neutrophils # Man Lymphocytes # (Manual) 1.0 L Monocytes # (Manual) Eosinophils # (Manual) PT INR Fibrinogen dRVVT Confirm Interp Factor V Activity POC ABG pH POC ABG pCO2 POC ABG pO2 Sodium Potassium Chloride Carbon Dioxide BUN Creatinine Glucose POC Glucose 55 L 199 H Lactic Acid Calcium Phosphorus Magnesium Direct Bilirubin ALT Alkaline Phosphatase Troponin T C-Reactive Protein Total Protein Albumin Triglycerides Cholesterol LDL Cholesterol Direct HDL Cholesterol Urine WBC (Auto) Urine Creatinine Urine Total Protein Vancomycin Trough Rheumatoid Factor Complement C4 Miscellaneous Test Crossmatch 10/03/16 10/03/16 10/03/16 05:10 12:14 13:18 WBC RBC Hgb Hct MCV MCH MCHC RDW Plt Count Lymph % (Auto) [place] % (Auto) Lymph # [place] # Seg Neutrophils % Seg Neuts % (Manual) Lymphocytes % (Manual) Monocytes % (Manual) Eosinophils % (Manual) Basophils % (Manual) Nucleated RBC % Seg Neutrophils # Seg Neutrophils # Man Lymphocytes # (Manual) Monocytes # (Manual) Eosinophils # (Manual) PT INR Fibrinogen dRVVT Confirm Interp Factor V Activity POC ABG pH POC ABG pCO2 POC ABG pO2 Sodium 129 L Potassium 3.3 L Chloride 88.8 L Carbon Dioxide 20 L BUN 29 H Creatinine 2.8 H Glucose POC Glucose 68 L 127 H Lactic Acid Calcium 7.2 L Phosphorus Magnesium Direct Bilirubin ALT Alkaline Phosphatase Troponin T C-Reactive Protein Total Protein Albumin Triglycerides Cholesterol LDL Cholesterol Direct HDL Cholesterol Urine WBC (Auto) Urine Creatinine Urine Total Protein Vancomycin Trough Rheumatoid Factor Complement C4 Miscellaneous Test Crossmatch 10/03/16 10/03/16 10/03/16 14:42 18:21 19:09 WBC RBC Hgb Hct MCV MCH MCHC RDW Plt Count Lymph % (Auto) [place] % (Auto) Lymph # [place] # Seg Neutrophils % Seg Neuts % (Manual) Lymphocytes % (Manual) Monocytes % (Manual) Eosinophils % (Manual) Basophils % (Manual) Nucleated RBC % Seg Neutrophils # Seg Neutrophils # Man Lymphocytes # (Manual) Monocytes # (Manual) Eosinophils # (Manual) PT INR Fibrinogen dRVVT Confirm Interp Factor V Activity POC ABG pH 7.499 H POC ABG pCO2 28.4 L POC ABG pO2 44 L Sodium Potassium Chloride Carbon Dioxide BUN Creatinine Glucose POC Glucose 64 L 205 H Lactic Acid Calcium Phosphorus Magnesium Direct Bilirubin ALT Alkaline Phosphatase Troponin T C-Reactive Protein Total Protein Albumin Triglycerides Cholesterol LDL Cholesterol Direct HDL Cholesterol Urine WBC (Auto) Urine Creatinine Urine Total Protein Vancomycin Trough Rheumatoid Factor Complement C4 Miscellaneous Test Crossmatch 10/03/16 10/04/16 10/04/16 23:33 04:18 06:30 WBC RBC 2.54 L Hgb 7.1 L Hct 21.7 L MCV MCH MCHC RDW 19.5 H Plt Count 76 L Lymph % (Auto) [place] % (Auto) Lymph # [place] # Seg Neutrophils % Seg Neuts % (Manual) 88.0 H Lymphocytes % (Manual) 6.0 L Monocytes % (Manual) Eosinophils % (Manual) Basophils % (Manual) Nucleated RBC % Seg Neutrophils # Seg Neutrophils # Man 8.8 H Lymphocytes # (Manual) 0.6 L Monocytes # (Manual) Eosinophils # (Manual) PT INR Fibrinogen dRVVT Confirm Interp Factor V Activity POC ABG pH 7.461 H POC ABG pCO2 33.6 L POC ABG pO2 211 H Sodium Potassium Chloride Carbon Dioxide BUN Creatinine Glucose POC Glucose 136 H Lactic Acid Calcium Phosphorus Magnesium Direct Bilirubin ALT Alkaline Phosphatase Troponin T C-Reactive Protein Total Protein Albumin Triglycerides Cholesterol LDL Cholesterol Direct HDL Cholesterol Urine WBC (Auto) Urine Creatinine Urine Total Protein Vancomycin Trough Rheumatoid Factor Complement C4 Miscellaneous Test Crossmatch 10/04/16 10/04/16 10/04/16 06:30 11:45 17:54 WBC RBC Hgb Hct MCV MCH MCHC RDW Plt Count Lymph % (Auto) [place] % (Auto) Lymph # [place] # Seg Neutrophils % Seg Neuts % (Manual) Lymphocytes % (Manual) Monocytes % (Manual) Eosinophils % (Manual) Basophils % (Manual) Nucleated RBC % Seg Neutrophils # Seg Neutrophils # Man Lymphocytes # (Manual) Monocytes # (Manual) Eosinophils # (Manual) PT INR Fibrinogen dRVVT Confirm Interp Factor V Activity POC ABG pH POC ABG pCO2 POC ABG pO2 Sodium 128 L Potassium Chloride 87.4 L Carbon Dioxide 20 L BUN 34 H Creatinine 2.9 H Glucose 127 H POC Glucose 158 H 160 H Lactic Acid Calcium 7.4 L Phosphorus Magnesium Direct Bilirubin ALT Alkaline Phosphatase Troponin T C-Reactive Protein Total Protein Albumin Triglycerides Cholesterol LDL Cholesterol Direct HDL Cholesterol Urine WBC (Auto) Urine Creatinine Urine Total Protein Vancomycin Trough Rheumatoid Factor Complement C4 Miscellaneous Test Crossmatch 10/04/16 10/05/16 10/05/16 23:25 04:30 05:00 WBC RBC 2.64 L Hgb 7.5 L Hct 22.6 L MCV MCH MCHC RDW 19.3 H Plt Count 80 L Lymph % (Auto) [place] % (Auto) Lymph # [place] # Seg Neutrophils % Seg Neuts % (Manual) Lymphocytes % (Manual) 12.0 L Monocytes % (Manual) Eosinophils % (Manual) Basophils % (Manual) Nucleated RBC % Seg Neutrophils # Seg Neutrophils # Man Lymphocytes # (Manual) Monocytes # (Manual) Eosinophils # (Manual) PT INR Fibrinogen dRVVT Confirm Interp Factor V Activity POC ABG pH 7.475 H POC ABG pCO2 33.3 L POC ABG pO2 140 H Sodium Potassium Chloride Carbon Dioxide BUN Creatinine Glucose POC Glucose 141 H Lactic Acid Calcium Phosphorus Magnesium Direct Bilirubin ALT Alkaline Phosphatase Troponin T C-Reactive Protein Total Protein Albumin Triglycerides Cholesterol LDL Cholesterol Direct HDL Cholesterol Urine WBC (Auto) Urine Creatinine Urine Total Protein Vancomycin Trough Rheumatoid Factor Complement C4 Miscellaneous Test Crossmatch 10/05/16 10/05/16 10/05/16 05:00 05:09 12:58 WBC RBC Hgb Hct MCV MCH MCHC RDW Plt Count Lymph % (Auto) [place] % (Auto) Lymph # [place] # Seg Neutrophils % Seg Neuts % (Manual) Lymphocytes % (Manual) Monocytes % (Manual) Eosinophils % (Manual) Basophils % (Manual) Nucleated RBC % Seg Neutrophils # Seg Neutrophils # Man Lymphocytes # (Manual) Monocytes # (Manual) Eosinophils # (Manual) PT INR Fibrinogen dRVVT Confirm Interp Factor V Activity POC ABG pH POC ABG pCO2 POC ABG pO2 Sodium 131 L Potassium Chloride 94.0 L Carbon Dioxide 20 L BUN 22 H Creatinine 2.0 H Glucose 123 H POC Glucose 166 H 179 H Lactic Acid Calcium 7.7 L Phosphorus 2.20 L D Magnesium Direct Bilirubin ALT Alkaline Phosphatase Troponin T C-Reactive Protein Total Protein Albumin Triglycerides Cholesterol LDL Cholesterol Direct HDL Cholesterol Urine WBC (Auto) Urine Creatinine Urine Total Protein Vancomycin Trough Rheumatoid Factor Complement C4 Miscellaneous Test Crossmatch 10/05/16 10/05/16 10/05/16 15:50 18:53 23:12 WBC RBC Hgb Hct MCV MCH MCHC RDW Plt Count Lymph % (Auto) [place] % (Auto) Lymph # [place] # Seg Neutrophils % Seg Neuts % (Manual) Lymphocytes % (Manual) Monocytes % (Manual) Eosinophils % (Manual) Basophils % (Manual) Nucleated RBC % Seg Neutrophils # Seg Neutrophils # Man Lymphocytes # (Manual) Monocytes # (Manual) Eosinophils # (Manual) PT INR Fibrinogen dRVVT Confirm Interp Factor V Activity POC ABG pH POC ABG pCO2 POC ABG pO2 Sodium Potassium Chloride Carbon Dioxide BUN Creatinine Glucose POC Glucose 150 H 164 H Lactic Acid Calcium Phosphorus Magnesium Direct Bilirubin ALT Alkaline Phosphatase Troponin T C-Reactive Protein Total Protein Albumin Triglycerides Cholesterol LDL Cholesterol Direct HDL Cholesterol Urine WBC (Auto) Urine Creatinine Urine Total Protein Vancomycin Trough Rheumatoid Factor Complement C4 Miscellaneous Test Crossmatch See Detail 10/06/16 10/06/16 10/06/16 03:50 03:50 04:53 WBC RBC 3.00 L Hgb 8.6 L Hct 25.8 L MCV MCH MCHC RDW 17.9 H Plt Count 65 L Lymph % (Auto) [place] % (Auto) Lymph # [place] # Seg Neutrophils % Seg Neuts % (Manual) 30.0 L Lymphocytes % (Manual) 5.0 L Monocytes % (Manual) Eosinophils % (Manual) Basophils % (Manual) Nucleated RBC % Seg Neutrophils # Seg Neutrophils # Man Lymphocytes # (Manual) 0.4 L Monocytes # (Manual) Eosinophils # (Manual) PT INR Fibrinogen dRVVT Confirm Interp Factor V Activity POC ABG pH 7.310 L POC ABG pCO2 49.0 H POC ABG pO2 Sodium 133 L Potassium Chloride 95.9 L Carbon Dioxide BUN 26 H Creatinine 2.0 H Glucose 116 H POC Glucose Lactic Acid Calcium 7.8 L Phosphorus Magnesium Direct Bilirubin ALT Alkaline Phosphatase Troponin T C-Reactive Protein Total Protein Albumin Triglycerides Cholesterol LDL Cholesterol Direct HDL Cholesterol Urine WBC (Auto) Urine Creatinine Urine Total Protein Vancomycin Trough Rheumatoid Factor Complement C4 Miscellaneous Test Crossmatch 10/06/16 10/06/16 10/06/16 05:23 11:52 18:34 WBC RBC Hgb Hct MCV MCH MCHC RDW Plt Count Lymph % (Auto) [place] % (Auto) Lymph # [place] # Seg Neutrophils % Seg Neuts % (Manual) Lymphocytes % (Manual) Monocytes % (Manual) Eosinophils % (Manual) Basophils % (Manual) Nucleated RBC % Seg Neutrophils # Seg Neutrophils # Man Lymphocytes # (Manual) Monocytes # (Manual) Eosinophils # (Manual) PT INR Fibrinogen dRVVT Confirm Interp Factor V Activity POC ABG pH POC ABG pCO2 POC ABG pO2 Sodium Potassium Chloride Carbon Dioxide BUN Creatinine Glucose POC Glucose 126 H 116 H 129 H Lactic Acid Calcium Phosphorus Magnesium Direct Bilirubin ALT Alkaline Phosphatase Troponin T C-Reactive Protein Total Protein Albumin Triglycerides Cholesterol LDL Cholesterol Direct HDL Cholesterol Urine WBC (Auto) Urine Creatinine Urine Total Protein Vancomycin Trough Rheumatoid Factor Complement C4 Miscellaneous Test Crossmatch 10/07/16 10/07/16 10/07/16 03:45 05:00 10:00 WBC 17.0 H RBC 2.68 L Hgb 7.3 L Hct 25.3 L MCV MCH 27 L MCHC 29 L RDW 19.6 H Plt Count 74 L Lymph % (Auto) [place] % (Auto) Lymph # [place] # Seg Neutrophils % Seg Neuts % (Manual) Lymphocytes % (Manual) 12.0 L Monocytes % (Manual) Eosinophils % (Manual) Basophils % (Manual) Nucleated RBC % 4.0 H Seg Neutrophils # Seg Neutrophils # Man 10.7 H Lymphocytes # (Manual) Monocytes # (Manual) Eosinophils # (Manual) PT INR Fibrinogen dRVVT Confirm Interp Factor V Activity POC ABG pH POC ABG pCO2 POC ABG pO2 Sodium 130 L Potassium 3.2 L Chloride 93.9 L Carbon Dioxide 20 L BUN 44 H Creatinine 2.7 H Glucose 129 H POC Glucose Lactic Acid Calcium 7.4 L Phosphorus Magnesium Direct Bilirubin ALT 6 L Alkaline Phosphatase 195 H Troponin T C-Reactive Protein Total Protein 4.9 L Albumin 1.0 L Triglycerides Cholesterol LDL Cholesterol Direct HDL Cholesterol Urine WBC (Auto) Urine Creatinine Urine Total Protein Vancomycin Trough Rheumatoid Factor Complement C4 Miscellaneous Test Flexitest 1 H Crossmatch 10/07/16 10/07/16 10/07/16 10:00 11:24 18:10 WBC RBC Hgb Hct MCV MCH MCHC RDW Plt Count Lymph % (Auto) [place] % (Auto) Lymph # [place] # Seg Neutrophils % Seg Neuts % (Manual) Lymphocytes % (Manual) Monocytes % (Manual) Eosinophils % (Manual) Basophils % (Manual) Nucleated RBC % Seg Neutrophils # Seg Neutrophils # Man Lymphocytes # (Manual) Monocytes # (Manual) Eosinophils # (Manual) PT INR Fibrinogen dRVVT Confirm Interp Factor V Activity POC ABG pH POC ABG pCO2 POC ABG pO2 Sodium Potassium Chloride Carbon Dioxide BUN Creatinine Glucose POC Glucose 116 H 130 H Lactic Acid Calcium Phosphorus Magnesium Direct Bilirubin ALT Alkaline Phosphatase Troponin T C-Reactive Protein 19.40 H Total Protein Albumin Triglycerides Cholesterol LDL Cholesterol Direct HDL Cholesterol Urine WBC (Auto) Urine Creatinine Urine Total Protein Vancomycin Trough Rheumatoid Factor Complement C4 Miscellaneous Test Crossmatch 10/07/16 10/08/16 10/08/16 18:30 00:00 04:00 WBC RBC Hgb Hct MCV MCH MCHC RDW Plt Count Lymph % (Auto) [place] % (Auto) Lymph # [place] # Seg Neutrophils % Seg Neuts % (Manual) Lymphocytes % (Manual) Monocytes % (Manual) Eosinophils % (Manual) Basophils % (Manual) Nucleated RBC % Seg Neutrophils # Seg Neutrophils # Man Lymphocytes # (Manual) Monocytes # (Manual) Eosinophils # (Manual) PT INR Fibrinogen dRVVT Confirm Interp Factor V Activity POC ABG pH POC ABG pCO2 POC ABG pO2 Sodium 132 L Potassium 3.3 L Chloride 93.6 L Carbon Dioxide 17 L BUN 59 H Creatinine 2.7 H Glucose 121 H POC Glucose 122 H Lactic Acid Calcium 7.6 L Phosphorus Magnesium Direct Bilirubin ALT Alkaline Phosphatase Troponin T C-Reactive Protein Total Protein Albumin Triglycerides Cholesterol LDL Cholesterol Direct HDL Cholesterol Urine WBC (Auto) > 182.0 H Urine Creatinine Urine Total Protein Vancomycin Trough Rheumatoid Factor Complement C4 Miscellaneous Test Crossmatch 10/08/16 10/08/16 10/08/16 04:30 05:30 11:51 WBC RBC 5.15 H Hgb 14.4 H D Hct 44.5 H D MCV MCH MCHC RDW 19.5 H Plt Count 56 L Lymph % (Auto) [place] % (Auto) Lymph # [place] # Seg Neutrophils % Seg Neuts % (Manual) 24.0 L Lymphocytes % (Manual) 8.0 L Monocytes % (Manual) Eosinophils % (Manual) Basophils % (Manual) Nucleated RBC % 9.0 H Seg Neutrophils # Seg Neutrophils # Man Lymphocytes # (Manual) 0.7 L Monocytes # (Manual) Eosinophils # (Manual) PT INR Fibrinogen dRVVT Confirm Interp Factor V Activity POC ABG pH POC ABG pCO2 POC ABG pO2 Sodium Potassium Chloride Carbon Dioxide BUN Creatinine Glucose POC Glucose 125 H 150 H Lactic Acid Calcium Phosphorus Magnesium Direct Bilirubin ALT Alkaline Phosphatase Troponin T C-Reactive Protein Total Protein Albumin Triglycerides Cholesterol LDL Cholesterol Direct HDL Cholesterol Urine WBC (Auto) Urine Creatinine Urine Total Protein Vancomycin Trough Rheumatoid Factor Complement C4 Miscellaneous Test Crossmatch 10/08/16 10/08/16 10/08/16 12:49 17:07 19:30 WBC RBC Hgb 7.1 L D Hct 22.4 L D MCV MCH MCHC RDW Plt Count Lymph % (Auto) [place] % (Auto) Lymph # [place] # Seg Neutrophils % Seg Neuts % (Manual) Lymphocytes % (Manual) Monocytes % (Manual) Eosinophils % (Manual) Basophils % (Manual) Nucleated RBC % Seg Neutrophils # Seg Neutrophils # Man Lymphocytes # (Manual) Monocytes # (Manual) Eosinophils # (Manual) PT INR Fibrinogen dRVVT Confirm Interp Factor V Activity POC ABG pH POC ABG pCO2 28.2 L POC ABG pO2 111 H Sodium Potassium Chloride Carbon Dioxide BUN Creatinine Glucose POC Glucose 145 H Lactic Acid Calcium Phosphorus Magnesium Direct Bilirubin ALT Alkaline Phosphatase Troponin T C-Reactive Protein Total Protein Albumin Triglycerides Cholesterol LDL Cholesterol Direct HDL Cholesterol Urine WBC (Auto) Urine Creatinine Urine Total Protein Vancomycin Trough Rheumatoid Factor Complement C4 Miscellaneous Test Crossmatch 10/08/16 10/09/16 10/09/16 19:30 03:45 03:45 WBC 12.6 H RBC 2.36 L Hgb 6.7 L Hct 21.1 L MCV MCH MCHC RDW 19.5 H Plt Count 75 L Lymph % (Auto) [place] % (Auto) Lymph # [place] # Seg Neutrophils % Seg Neuts % (Manual) Lymphocytes % (Manual) Monocytes % (Manual) 10.0 H Eosinophils % (Manual) Basophils % (Manual) Nucleated RBC % 3.0 H Seg Neutrophils # Seg Neutrophils # Man Lymphocytes # (Manual) Monocytes # (Manual) 1.3 H Eosinophils # (Manual) PT 18.0 H INR 1.41 H Fibrinogen dRVVT Confirm Interp Factor V Activity POC ABG pH POC ABG pCO2 POC ABG pO2 Sodium 135 L Potassium Chloride Carbon Dioxide 17 L BUN 81 H Creatinine 3.2 H Glucose 109 H POC Glucose Lactic Acid Calcium 7.4 L Phosphorus 4.60 H D Magnesium Direct Bilirubin ALT Alkaline Phosphatase Troponin T C-Reactive Protein Total Protein Albumin Triglycerides Cholesterol LDL Cholesterol Direct HDL Cholesterol Urine WBC (Auto) Urine Creatinine Urine Total Protein Vancomycin Trough Rheumatoid Factor Complement C4 Miscellaneous Test Crossmatch 10/09/16 10/09/16 10/09/16 03:45 05:14 07:20 WBC RBC Hgb Hct MCV MCH MCHC RDW Plt Count Lymph % (Auto) [place] % (Auto) Lymph # [place] # Seg Neutrophils % Seg Neuts % (Manual) Lymphocytes % (Manual) Monocytes % (Manual) Eosinophils % (Manual) Basophils % (Manual) Nucleated RBC % Seg Neutrophils # Seg Neutrophils # Man Lymphocytes # (Manual) Monocytes # (Manual) Eosinophils # (Manual) PT 19.0 H INR 1.51 H Fibrinogen dRVVT Confirm Interp Factor V Activity POC ABG pH POC ABG pCO2 POC ABG pO2 Sodium Potassium Chloride Carbon Dioxide BUN Creatinine Glucose POC Glucose 151 H Lactic Acid Calcium Phosphorus Magnesium Direct Bilirubin ALT Alkaline Phosphatase Troponin T C-Reactive Protein Total Protein Albumin Triglycerides Cholesterol LDL Cholesterol Direct HDL Cholesterol Urine WBC (Auto) Urine Creatinine Urine Total Protein Vancomycin Trough Rheumatoid Factor Complement C4 Miscellaneous Test Crossmatch See Detail 10/09/16 10/09/16 10/09/16 11:46 16:20 16:43 WBC RBC Hgb 7.2 L Hct 22.2 L MCV MCH MCHC RDW Plt Count Lymph % (Auto) [place] % (Auto) Lymph # [place] # Seg Neutrophils % Seg Neuts % (Manual) Lymphocytes % (Manual) Monocytes % (Manual) Eosinophils % (Manual) Basophils % (Manual) Nucleated RBC % Seg Neutrophils # Seg Neutrophils # Man Lymphocytes # (Manual) Monocytes # (Manual) Eosinophils # (Manual) PT INR Fibrinogen dRVVT Confirm Interp Factor V Activity POC ABG pH POC ABG pCO2 POC ABG pO2 Sodium Potassium Chloride Carbon Dioxide BUN Creatinine Glucose POC Glucose 133 H 141 H Lactic Acid Calcium Phosphorus Magnesium Direct Bilirubin ALT Alkaline Phosphatase Troponin T C-Reactive Protein Total Protein Albumin Triglycerides Cholesterol LDL Cholesterol Direct HDL Cholesterol Urine WBC (Auto) Urine Creatinine Urine Total Protein Vancomycin Trough Rheumatoid Factor Complement C4 Miscellaneous Test Crossmatch 10/10/16 10/10/16 10/10/16 05:00 05:00 11:19 WBC 18.5 H RBC 2.19 L Hgb 6.4 L Hct 19.6 L* MCV MCH MCHC RDW 19.3 H Plt Count 93 L Lymph % (Auto) [place] % (Auto) Lymph # [place] # Seg Neutrophils % Seg Neuts % (Manual) Lymphocytes % (Manual) 10.0 L Monocytes % (Manual) Eosinophils % (Manual) Basophils % (Manual) Nucleated RBC % 4.0 H Seg Neutrophils # Seg Neutrophils # Man 11.3 H Lymphocytes # (Manual) Monocytes # (Manual) Eosinophils # (Manual) PT INR Fibrinogen dRVVT Confirm Interp Factor V Activity POC ABG pH POC ABG pCO2 POC ABG pO2 Sodium Potassium 5.7 H D Chloride Carbon Dioxide 16 L BUN 94 H Creatinine 3.1 H Glucose 131 H POC Glucose 153 H Lactic Acid Calcium 8.2 L Phosphorus 5.10 H Magnesium 2.40 H Direct Bilirubin 0.3 H ALT < 5 L Alkaline Phosphatase 319 H Troponin T C-Reactive Protein Total Protein 5.1 L Albumin 1.0 L Triglycerides Cholesterol LDL Cholesterol Direct HDL Cholesterol Urine WBC (Auto) Urine Creatinine Urine Total Protein Vancomycin Trough Rheumatoid Factor Complement C4 Miscellaneous Test Crossmatch 10/10/16 10/10/16 10/11/16 17:50 23:30 04:15 WBC RBC Hgb Hct MCV MCH MCHC RDW Plt Count Lymph % (Auto) [place] % (Auto) Lymph # [place] # Seg Neutrophils % Seg Neuts % (Manual) Lymphocytes % (Manual) Monocytes % (Manual) Eosinophils % (Manual) Basophils % (Manual) Nucleated RBC % Seg Neutrophils # Seg Neutrophils # Man Lymphocytes # (Manual) Monocytes # (Manual) Eosinophils # (Manual) PT INR Fibrinogen dRVVT Confirm Interp Factor V Activity POC ABG pH POC ABG pCO2 POC ABG pO2 Sodium Potassium Chloride 96.4 L Carbon Dioxide 21 L BUN 57 H Creatinine 2.1 H Glucose 151 H POC Glucose 146 H 141 H Lactic Acid Calcium 8.3 L Phosphorus Magnesium Direct Bilirubin ALT Alkaline Phosphatase Troponin T C-Reactive Protein Total Protein Albumin Triglycerides Cholesterol LDL Cholesterol Direct HDL Cholesterol Urine WBC (Auto) Urine Creatinine Urine Total Protein Vancomycin Trough Rheumatoid Factor Complement C4 Miscellaneous Test Crossmatch 10/11/16 10/11/16 10/11/16 04:15 04:15 05:30 WBC 28.3 H RBC 3.12 L Hgb 9.3 L Hct 28.7 L D MCV MCH MCHC RDW 17.7 H Plt Count 128 L Lymph % (Auto) [place] % (Auto) Lymph # [place] # Seg Neutrophils % Seg Neuts % (Manual) Lymphocytes % (Manual) Monocytes % (Manual) Eosinophils % (Manual) Basophils % (Manual) Nucleated RBC % Seg Neutrophils # Seg Neutrophils # Man Lymphocytes # (Manual) Monocytes # (Manual) Eosinophils # (Manual) PT INR Fibrinogen dRVVT Confirm Interp Factor V Activity POC ABG pH POC ABG pCO2 POC ABG pO2 Sodium Potassium Chloride Carbon Dioxide BUN Creatinine Glucose POC Glucose 167 H Lactic Acid Calcium Phosphorus Magnesium Direct Bilirubin ALT Alkaline Phosphatase Troponin T C-Reactive Protein 15.80 H Total Protein Albumin Triglycerides Cholesterol LDL Cholesterol Direct HDL Cholesterol Urine WBC (Auto) Urine Creatinine Urine Total Protein Vancomycin Trough Rheumatoid Factor Complement C4 Miscellaneous Test Crossmatch 10/11/16 10/11/16 10/11/16 11:40 15:49 23:57 WBC RBC Hgb Hct MCV MCH MCHC RDW Plt Count Lymph % (Auto) [place] % (Auto) Lymph # [place] # Seg Neutrophils % Seg Neuts % (Manual) Lymphocytes % (Manual) Monocytes % (Manual) Eosinophils % (Manual) Basophils % (Manual) Nucleated RBC % Seg Neutrophils # Seg Neutrophils # Man Lymphocytes # (Manual) Monocytes # (Manual) Eosinophils # (Manual) PT INR Fibrinogen dRVVT Confirm Interp Factor V Activity POC ABG pH POC ABG pCO2 POC ABG pO2 Sodium Potassium Chloride Carbon Dioxide BUN Creatinine Glucose POC Glucose 139 H 168 H 161 H Lactic Acid Calcium Phosphorus Magnesium Direct Bilirubin ALT Alkaline Phosphatase Troponin T C-Reactive Protein Total Protein Albumin Triglycerides Cholesterol LDL Cholesterol Direct HDL Cholesterol Urine WBC (Auto) Urine Creatinine Urine Total Protein Vancomycin Trough Rheumatoid Factor Complement C4 Miscellaneous Test Crossmatch 10/12/16 10/12/16 10/12/16 04:40 04:40 05:44 WBC 22.5 H RBC 2.88 L Hgb 8.8 L Hct 26.8 L MCV MCH MCHC RDW 17.8 H Plt Count Lymph % (Auto) [place] % (Auto) Lymph # [place] # Seg Neutrophils % Seg Neuts % (Manual) Lymphocytes % (Manual) Monocytes % (Manual) Eosinophils % (Manual) Basophils % (Manual) Nucleated RBC % Seg Neutrophils # Seg Neutrophils # Man Lymphocytes # (Manual) Monocytes # (Manual) Eosinophils # (Manual) PT INR Fibrinogen dRVVT Confirm Interp Factor V Activity POC ABG pH POC ABG pCO2 POC ABG pO2 Sodium 134 L Potassium Chloride 93.0 L Carbon Dioxide BUN 74 H Creatinine 2.5 H Glucose 137 H POC Glucose 158 H Lactic Acid Calcium 8.2 L Phosphorus Magnesium Direct Bilirubin ALT Alkaline Phosphatase Troponin T C-Reactive Protein Total Protein Albumin Triglycerides Cholesterol LDL Cholesterol Direct HDL Cholesterol Urine WBC (Auto) Urine Creatinine Urine Total Protein Vancomycin Trough Rheumatoid Factor Complement C4 Miscellaneous Test Crossmatch Allied health notes reviewed: RT
[2016-10-12] MEDS ORDERED: MERREM/NS 500 MG/50 ML 500 MG/50 ML BAG IV SCH (12:00)
--- NOTE | 2016-10-12 13:00 | Progress Note ---
Assessment and Plan Acute hypoxic respiratory failure on mechanical ventilation s/p trach and PEG Acute left MCA CVA echocardiogram demonstrates at least moderate LVH but a normal LV systolic function, EF 50-55%. no thrombus visualized on transthoracic echocardiogram. Dislodged PEG tube s/p repair of gastric perforation with wedge gastrectomy Hypertension was hypotensive requiring pressor support Acute on chronic renal failure requiring dialysis Fungemia Diabetes mellitus Anemia requiring transfusion of PRBCs Thrombocytopenia Hyponatremia Paroxysmal Afib s/p failed cardioversion on 09/25 on amiodarone drip considered not a candidate for anticoagulation due to severe anemia and thrombocytopenia. Recommendations: We will stop amiodarone drip. Instead, we will use intravenous Lopressor for rate control of paroxysmal afib. Conservative cardiac management. Subjective Date of service: 10/12/16 Principal diagnosis: hematochezia Interval history: Patient remains unresponsive, on mechanical ventilation via trach. Objective Vital Signs Temp Pulse Pulse Resp Resp BP Pulse Ox 10/12/16 12:00 99.5 F 10/12/16 11:29 105 H 22 10/12/16 10:00 99 H 27 H 22 158/83 100 10/12/16 09:00 102 H 26 H 171/92 100 10/12/16 08:00 99.5 F 102 H 100 H 28 H 168/97 100 10/12/16 07:00 98 H 24 164/87 100 10/12/16 06:00 96 H 27 H 145/69 100 10/12/16 05:33 10/12/16 05:00 96 H 24 152/78 98 10/12/16 04:00 100.5 F H 105 H 97 H 26 H 144/76 100 10/12/16 03:00 103 H 22 183/114 100 10/12/16 02:00 104 H 22 181/101 100 10/12/16 01:41 100 H 22 176/96 100 10/12/16 01:00 103 H 25 H 189/105 100 10/12/16 00:00 100.2 F H 100 H 101 H 24 170/97 100 10/11/16 23:15 106 H 173/92 100 10/11/16 23:00 100 H 21 173/92 100 10/11/16 22:00 101 H 21 170/92 100 10/11/16 21:00 101 H 20 159/89 100 10/11/16 20:00 102 H 110 H 27 H 144/85 100 10/11/16 19:54 100.1 F H 10/11/16 19:25 113 H 23 147/93 100 10/11/16 19:00 107 H 26 H 144/85 100 10/11/16 18:00 120 H 31 H 129/76 100 10/11/16 17:00 112 H 34 H 163/88 100 10/11/16 16:00 98.6 F 117 H 120 H 29 H 164/91 100 10/11/16 15:00 118 H 32 H 122/86 100 10/11/16 14:00 99 H 30 H 136/77 99 10/11/16 13:56 108 H 27 H 163/100 99 10/11/16 13:00 108 H 28 H 161/91 98 Pulse Ox 10/12/16 12:00 10/12/16 11:29 10/12/16 10:00 10/12/16 09:00 10/12/16 08:00 10/12/16 07:00 10/12/16 06:00 10/12/16 05:33 100 10/12/16 05:00 10/12/16 04:00 10/12/16 03:00 10/12/16 02:00 10/12/16 01:41 10/12/16 01:00 10/12/16 00:00 10/11/16 23:15 10/11/16 23:00 100 10/11/16 22:00 10/11/16 21:00 10/11/16 20:00 10/11/16 19:54 10/11/16 19:25 10/11/16 19:00 10/11/16 18:00 10/11/16 17:00 10/11/16 16:00 10/11/16 15:00 100 10/11/16 14:00 10/11/16 13:56 10/11/16 13:00 - Physical Examination General: Other (ventilated via trach) Cardiac: Positive: irregularly irregular - Labs and Meds CBC 10/12/16 Range/Units 04:40 WBC 22.5 H (4.5-11.0) K/mm3 RBC 2.88 L (3.65-5.03) M/mm3 Hgb 8.8 L (10.1-14.3) gm/dl Hct 26.8 L (30.3-42.9) % Plt Count 167 (140-440) K/mm3 Comprehensive Metabolic Panel 10/12/16 Range/Units 04:40 Sodium 134 L (137-145) mmol/L Potassium 3.7 (3.6-5.0) mmol/L Chloride 93.0 L (98-107) mmol/L Carbon Dioxide 22 (22-30) mmol/L BUN 74 H (7-17) mg/dL Creatinine 2.5 H (0.7-1.2) mg/dL Glucose 137 H (65-100) mg/dL Calcium 8.2 L (8.4-10.2) mg/dL - Imaging and Cardiology EKG: image reviewed - Allied health notes Allied health notes reviewed: RT
[2016-10-12] MEDS: MERREM 1,000 MG in NACL 0.9% 100 ML IV SCH (14:41)
[2016-10-12] MEDS: LOPRESSOR IV SCH ×2 (14:44→21:00)
[2016-10-12] MEDS ORDERED: NACL 0.9% 100 ML IV PRN (15:46)
--- NOTE | 2016-10-12 15:46 | Progress Note ---
Subjective Principal diagnosis: hematochezia Interval history: Patient was evaluated today for follow-up on multiple renal related issues No acute distress urine output remains very low Events of 24 hours were noted Vital labs intake and output medications were reviewed Current medications: Reviewed Social history:Reviewed Family history: Reviewed HEENT: No uremic order oral mucosa moist Neck: Supple without any thyromegaly mass or JVD Chest: Bilateral crackles posteriorly and to the side Heart: Regular rate and rhythm S1 and S2 heard no S3-S4 Abdomen: Soft nontender no voluntary guarding rigidity or rebound Extremity: Edema approximately 1+ generalized Psychiatry: No agitation and aggression noted Assessment and plan Acute on chronic renal failure; continue to monitor renal function for now, avoid any nephrotoxic medication Start her on hemodialysis Monday schedule for now and follow Hyperkalemia appears to have corrected at this time Ultrasonogram did not show any evidence of obstruction Respiratory failure cerebrovascular accident many other comorbidities currently ventilator dependent Overall prognosis appears to be poor in my opinion We'll continue with supportive care Objective - Vital Signs Vital signs: Vital Signs - 12hr 10/12/16 10/12/16 10/12/16 04:00 05:00 05:33 Temperature 100.5 F H Pulse Rate 105 H 96 H Pulse Rate [ 97 H From Monitor] Respiratory 26 H 24 Rate Respiratory Rate [ Generalized] Blood Pressure 144/76 152/78 O2 Sat by Pulse 100 98 Oximetry O2 Sat by Pulse 100 Oximetry [ Assessment] 10/12/16 10/12/16 10/12/16 06:00 07:00 08:00 Temperature 99.5 F Pulse Rate 96 H 98 H 102 H Pulse Rate [ 100 H From Monitor] Respiratory 27 H 24 28 H Rate Respiratory Rate [ Generalized] Blood Pressure 145/69 164/87 168/97 O2 Sat by Pulse 100 100 100 Oximetry O2 Sat by Pulse Oximetry [ Assessment] 10/12/16 10/12/16 10/12/16 09:00 09:50 10:00 Temperature Pulse Rate 102 H 105 H 99 H Pulse Rate [ From Monitor] Respiratory 26 H 28 H 27 H Rate Respiratory 22 Rate [ Generalized] Blood Pressure 171/92 158/83 158/83 O2 Sat by Pulse 100 99 100 Oximetry O2 Sat by Pulse Oximetry [ Assessment] 10/12/16 10/12/16 10/12/16 10:55 11:20 11:29 Temperature Pulse Rate 105 H 105 H Pulse Rate [ From Monitor] Respiratory 30 H 22 Rate Respiratory Rate [ Generalized] Blood Pressure 158/83 O2 Sat by Pulse 98 Oximetry O2 Sat by Pulse 95 Oximetry [ Assessment] 10/12/16 10/12/16 10/12/16 12:00 13:00 14:00 Temperature 99.5 F Pulse Rate 99 H 99 H 101 H Pulse Rate [ From Monitor] Respiratory 20 20 21 Rate Respiratory Rate [ Generalized] Blood Pressure 139/87 143/84 150/87 O2 Sat by Pulse 100 100 100 Oximetry O2 Sat by Pulse Oximetry [ Assessment] 10/12/16 14:44 Temperature Pulse Rate 104 H Pulse Rate [ From Monitor] Respiratory Rate Respiratory Rate [ Generalized] Blood Pressure 142/81 O2 Sat by Pulse Oximetry O2 Sat by Pulse Oximetry [ Assessment] - Lab 10/12/16 04:40 10/12/16 04:40 Most recent lab results Calcium 8.2 mg/dL (8.4-10.2) L 10/12/16 04:40 Phosphorus 3.00 mg/dL (2.5-4.5) 10/12/16 04:40 Magnesium 1.90 mg/dL (1.7-2.3) 10/11/16 04:15 Urine Creatinine 54.8 mg/dL (0.1-20.0) H 09/21/16 12:00 Urine Sodium 36 mEq/L 09/16/16 19:19 Urine Total Protein 16 mg/dL (5-11.8) H 09/16/16 19:19
--- NOTE | 2016-10-12 18:04 | Progress Note ---
Assessment and Plan CT Scan today does not show any signs of abscess with JUAN drain and NG in good position Continue ATBx per ID recommendations Continue NPO/NG until ileus resolves Continue JUAN drain until output less and not purulent Monitor wounds until healed Continue supportive care Will follow Subjective Date of service: 10/12/16 Patient Reports: Positive: other (Remains intubated without pressors, NG tube in place with bilious output) Objective Vital Signs - 12hr 10/12/16 10/12/16 10/12/16 07:00 08:00 09:00 Temperature 99.5 F Pulse Rate 98 H 102 H 102 H Pulse Rate [ 100 H From Monitor] Respiratory 24 28 H 26 H Rate Respiratory Rate [ Generalized] Blood Pressure 164/87 168/97 171/92 O2 Sat by Pulse 100 100 100 Oximetry O2 Sat by Pulse Oximetry [ Assessment] 10/12/16 10/12/16 10/12/16 09:50 10:00 10:55 Temperature Pulse Rate 105 H 99 H Pulse Rate [ From Monitor] Respiratory 28 H 27 H Rate Respiratory 22 Rate [ Generalized] Blood Pressure 158/83 158/83 O2 Sat by Pulse 99 100 Oximetry O2 Sat by Pulse 95 Oximetry [ Assessment] 10/12/16 10/12/16 10/12/16 11:20 11:29 12:00 Temperature 99.5 F Pulse Rate 105 H 105 H 99 H Pulse Rate [ 113 H From Monitor] Respiratory 30 H 22 28 H Rate Respiratory Rate [ Generalized] Blood Pressure 158/83 139/87 O2 Sat by Pulse 98 100 Oximetry O2 Sat by Pulse Oximetry [ Assessment] 10/12/16 10/12/16 10/12/16 13:00 14:00 14:44 Temperature Pulse Rate 99 H 101 H 104 H Pulse Rate [ From Monitor] Respiratory 20 21 Rate Respiratory Rate [ Generalized] Blood Pressure 143/84 150/87 142/81 O2 Sat by Pulse 100 100 Oximetry O2 Sat by Pulse Oximetry [ Assessment] 10/12/16 10/12/16 10/12/16 15:00 16:00 17:00 Temperature 100.4 F H Pulse Rate 94 H 98 H 100 H Pulse Rate [ 100 H From Monitor] Respiratory 21 20 22 Rate Respiratory Rate [ Generalized] Blood Pressure 139/90 124/72 139/85 O2 Sat by Pulse 100 100 100 Oximetry O2 Sat by Pulse Oximetry [ Assessment] - Abdomen soft, bowel sounds hypoactive, wound (healing without signs of infection), other (JUAN drain in place and draining purulent material) - Labs 10/12/16 04:40 10/12/16 04:40 Diabetes panel 10/12/16 Range/Units 04:40 Sodium 134 L (137-145) mmol/L Potassium 3.7 (3.6-5.0) mmol/L Chloride 93.0 L (98-107) mmol/L Carbon Dioxide 22 (22-30) mmol/L BUN 74 H (7-17) mg/dL Creatinine 2.5 H (0.7-1.2) mg/dL Glucose 137 H (65-100) mg/dL Calcium 8.2 L (8.4-10.2) mg/dL Calcium panel 10/12/16 Range/Units 04:40 Calcium 8.2 L (8.4-10.2) mg/dL Phosphorus 3.00 (2.5-4.5) mg/dL Pituitary panel 10/12/16 Range/Units 04:40 Sodium 134 L (137-145) mmol/L Potassium 3.7 (3.6-5.0) mmol/L Chloride 93.0 L (98-107) mmol/L Carbon Dioxide 22 (22-30) mmol/L BUN 74 H (7-17) mg/dL Creatinine 2.5 H (0.7-1.2) mg/dL Glucose 137 H (65-100) mg/dL Calcium 8.2 L (8.4-10.2) mg/dL Adrenal panel 10/12/16 Range/Units 04:40 Sodium 134 L (137-145) mmol/L Potassium 3.7 (3.6-5.0) mmol/L Chloride 93.0 L (98-107) mmol/L Carbon Dioxide 22 (22-30) mmol/L BUN 74 H (7-17) mg/dL Creatinine 2.5 H (0.7-1.2) mg/dL Glucose 137 H (65-100) mg/dL Calcium 8.2 L (8.4-10.2) mg/dL
[2016-10-12] MEDS: fentaNYL DRIP Premix 2,000 MCG/100 ML BAG IV SCH (18:36)
[2016-10-12] MEDS: LOPRESSOR IV PRN (19:31)
[2016-10-12] MEDS ORDERED: TPN ADULT 2,016 ML IV SCH (20:00)
[2016-10-12] MEDS ORDERED: INTRALIPID 20% 250 ML IV SCH (20:00)
[2016-10-12] MEDS: MYCAMINE 100 MG in NACL 0.9% 100 ML IV SCH (20:40)
[2016-10-13] MEDS: APRESOLINE IV PRN ×2 (00:52→10:04)
[2016-10-13] MEDS: HumuLIN R SUB-Q SCH ×4 (00:56→18:30)
[2016-10-13] MEDS: LOPRESSOR IV SCH ×4 (03:29→21:46)
[2016-10-13 03:50] LABS: Hematocrit 26.1 % (30.3-42.9); Hemoglobin 8.7 gm/dl (10.1-14.3); Mean Corpuscular HGB Conc 33 % (30-34); Mean Corpuscular Hemoglobin 31 pg (28-32); Mean Corpuscular Volume 92 fl (79-97); Platelet Count 200 K/mm3 (140-440); Red Blood Count 2.83 M/mm3 (3.65-5.03); Red Cell Distribution Width 18.1 % (13.2-15.2)
[2016-10-13 03:52] LABS: BUN/Creatinine Ratio 31.53; Calcium 8.7 mg/dL (8.4-10.2)
--- NOTE | 2016-10-13 08:45 | Progress Note ---
Assessment and Plan Assessment and plan: Assessment and plan: Acute hypoxic respiratory failure On mechanical ventilation Status post trach Acute massive left MCA CVA Status post TPA Aspirin/statin Supportive care Toxic metabolic Encephalopathy Multifactorial. Still not following commands Dislodged PEG Status post wedge gastrectomy, repair of gastric perforation, abdominal washout and drain placement Surgery following Severe sepsis with septic shock UTI/candidemia/peritonitis due to gastric perforation from dislodged PEG Off pressors She is on Zosyn and micafungin Antibiotic/antifungals per ID recommendation Candidemia Peritonitis Toxic metabolic encephalopathy,unresponsive. neurology following Acute blood loss anemia requiring multiple PRBC transfusions. Hemoglobin 8.7 today . Repeat stool occult blood positive. GI Physician following Monitor H&H closely, Fever due to sepsis. CT Abdomen negative for sepsis Acute on chronic kidney disease, had dialysis . Creatinine 2.6 today. Electrolyte imbalances Replete, recheck Paroxysmal A. fib Status post failed conversion on 09/25 Continue Amiodarone drip No anticoagulation due to anemia/thrombocytopenia, massive CVA Diabetes mellitus type 2 Insulin/SSI Leukocytosis. WBC 22.3. Severe protein caloric malnutrition Currently on TPN Extensive back skin peeling Thrombocytopenia DVT prophylaxis SCDs, no pharmacological agent given anemia requiring multiple PRBC transfusions , thrombocytopenia, massive stroke Hyperkalemia. Give Insulin. For dialysis today Full code status Prognosis guarded Had a family meeting Monday in which I discussed plan. Present at meeting was the Risk management staff, database administration project manager and myself, patient's son and patients ' sister. History Interval history: Patient with multi-organ failure, Fever , Still does not follow commands Hospitalist Physical - Physical exam Narrative exam: Gen appearance: Trach, not in acute distress HEENT: Atraumatic Neck: Tracheostomy Lungs: Clear to auscultation bilaterally, no crackles or wheezes Heart :S1 and S2 irregular, no murmurs, rubs or gallop Abdomen: Soft, surgical drain, dressing over left upper quadrant, bowel sounds present Extremities : bilateral edema, upper and lower ext Neuro: Does not follow commands - Constitutional Vitals: Temp Pulse Resp BP Pulse Ox 99 F 115 H 24 140/83 100 10/13/16 08:00 10/13/16 07:42 10/13/16 06:00 10/13/16 07:42 10/13/16 07:42 General appearance: Present: mild distress, obese, other (on vent, non- responsive) Results - Labs CBC & Chem 7: 10/13/16 Unknown 10/13/16 Unknown Labs: Laboratory Last Values WBC 23.4 K/mm3 (4.5-11.0) H 10/13/16 Unknown RBC 2.83 M/mm3 (3.65-5.03) L 10/13/16 Unknown Hgb 8.7 gm/dl (10.1-14.3) L 10/13/16 Unknown Hct 26.1 % (30.3-42.9) L 10/13/16 Unknown MCV 92 fl (79-97) 10/13/16 Unknown MCH 31 pg (28-32) 10/13/16 Unknown MCHC 33 % (30-34) 10/13/16 Unknown RDW 18.1 % (13.2-15.2) H 10/13/16 Unknown Plt Count 200 K/mm3 (140-440) 10/13/16 Unknown Lymph % (Auto) 6.9 % (13.4-35.0) L 09/21/16 07:45 [place] % (Auto) 0.5 % (0.0-7.3) 10/03/16 05:10 Eos % (Auto) 1.3 % (0.0-4.3) 10/03/16 05:10 Baso % (Auto) 0.2 % (0.0-1.8) 09/21/16 07:45 Lymph # 0.9 K/mm3 (1.2-5.4) L 09/21/16 07:45 [place] # 0.1 K/mm3 (0.0-0.8) 10/03/16 05:10 Eos # 0.2 K/mm3 (0.0-0.4) 10/03/16 05:10 Baso # 0.0 K/mm3 (0.0-0.1) 10/03/16 05:10 Add Manual Diff Complete 10/10/16 05:00 Total Counted 100 10/10/16 05:00 Seg Neutrophils % Office Chair Assembler 10/03/16 05:10 Seg Neuts % (Manual) 61.0 % (40.0-70.0) 10/10/16 05:00 Band Neutrophils % 24.0 % 10/10/16 05:00 Lymphocytes % (Manual) 10.0 % (13.4-35.0) L 10/10/16 05:00 Reactive Lymphs % (Man) 0 % 10/10/16 05:00 Monocytes % (Manual) 2.0 % (0.0-7.3) 10/10/16 05:00 Eosinophils % (Manual) 0 % (0.0-4.3) 10/10/16 05:00 Basophils % (Manual) 0 % (0.0-1.8) 10/10/16 05:00 Metamyelocytes % 3.0 % 10/10/16 05:00 Myelocytes % 0 % 10/10/16 05:00 Promyelocytes % 0 % 10/10/16 05:00 Blast Cells % 0 % 10/10/16 05:00 Nucleated RBC % 4.0 % (0.0-0.9) H 10/10/16 05:00 Seg Neutrophils # 11.9 K/mm3 (1.8-7.7) H 10/03/16 05:10 Seg Neutrophils # Man 11.3 K/mm3 (1.8-7.7) H 10/10/16 05:00 Band Neutrophils # 4.4 K/mm3 10/10/16 05:00 Lymphocytes # (Manual) 1.9 K/mm3 (1.2-5.4) 10/10/16 05:00 Abs React Lymphs (Man) 0.0 K/mm3 10/10/16 05:00 Monocytes # (Manual) 0.4 K/mm3 (0.0-0.8) 10/10/16 05:00 Eosinophils # (Manual) 0.0 K/mm3 (0.0-0.4) 10/10/16 05:00 Basophils # (Manual) 0.0 K/mm3 (0.0-0.1) 10/10/16 05:00 Metamyelocytes # 0.6 K/mm3 10/10/16 05:00 Myelocytes # 0.0 K/mm3 10/10/16 05:00 Promyelocytes # 0.0 K/mm3 10/10/16 05:00 Blast Cells # 0.0 K/mm3 10/10/16 05:00 Pathologist Review 09/13/16 04:00 WBC Morphology Not Reportable 10/10/16 05:00 Hypersegmented Neuts Not Reportable 10/10/16 05:00 Hyposegmented Neuts Not Reportable 10/10/16 05:00 Hypogranular Neuts Not Reportable 10/10/16 05:00 Smudge Cells Not Reportable 10/10/16 05:00 Toxic Granulation Not Reportable 10/10/16 05:00 Toxic Vacuolation Not Reportable 10/10/16 05:00 Dohle Bodies Not Reportable 10/10/16 05:00 Pelger-Huet Anomaly Not Reportable 10/10/16 05:00 Jasmina Rods Not Reportable 10/10/16 05:00 Platelet Estimate Consistent w auto 10/10/16 05:00 Clumped Platelets Not Reportable 10/10/16 05:00 Plt Clumps, EDTA Not Reportable 10/10/16 05:00 Large Platelets Not Reportable 10/10/16 05:00 Giant Platelets Not Reportable 10/10/16 05:00 Platelet Satelliting Not Reportable 10/10/16 05:00 Plt Morphology Comment Not Reportable 10/10/16 05:00 RBC Morphology Not Reportable 10/10/16 05:00 Dimorphic RBCs Not Reportable 10/10/16 05:00 Polychromasia Rare 10/10/16 05:00 Hypochromasia 1+ 10/10/16 05:00 Poikilocytosis Not Reportable 10/10/16 05:00 Anisocytosis 1+ 10/10/16 05:00 Microcytosis Not Reportable 10/10/16 05:00 Macrocytosis 1+ 10/10/16 05:00 Spherocytes Not Reportable 10/10/16 05:00 Pappenheimer Bodies Not Reportable 10/10/16 05:00 Sickle Cells Not Reportable 10/10/16 05:00 Target Cells Not Reportable 10/10/16 05:00 Tear Drop Cells Not Reportable 10/10/16 05:00 Ovalocytes Not Reportable 10/10/16 05:00 Stomatocytes Few 10/06/16 03:50 Helmet Cells Not Reportable 10/10/16 05:00 Monet-Manlius Bodies Not Reportable 10/10/16 05:00 [place] Rings Not Reportable 10/10/16 05:00 [place] Cells Not Reportable 10/10/16 05:00 Bite Cells Not Reportable 10/10/16 05:00 Crenated Cell Not Reportable 10/10/16 05:00 Elliptocytes Not Reportable 10/10/16 05:00 Acanthocytes (Spur) Not Reportable 10/10/16 05:00 Rouleaux Not Reportable 10/10/16 05:00 Hemoglobin C Crystals Not Reportable 10/10/16 05:00 Schistocytes Not Reportable 10/10/16 05:00 Malaria parasites Not Reportable 10/10/16 05:00 ESR > 140.0 mm/Hr (0-20) 09/08/16 11:48 Jun Bodies Not Reportable 10/10/16 05:00 Hem Pathologist Commnt No 10/10/16 05:00 PT 19.0 Sec. (12.2-14.9) H 10/09/16 03:45 INR 1.51 (0.87-1.13) H 10/09/16 03:45 APTT 33.0 Sec. (24.2-36.6) 10/09/16 03:45 Thrombin Time 16.8 Sec. (15.1-19.6) 09/03/16 00:10 Fibrinogen 750 mg/dl (211-480) H 09/08/16 11:48 Lupus Anticoagulant see below 09/12/16 09:59 LA PTT Baseline See scanned report 09/12/16 09:59 dRVVT Confirm Interp Positive (Negative) H 09/12/16 09:59 dRVVT Screen 50:50 See scanned report 09/12/16 09:59 dRVVT Mix Interpret See scanned report 09/12/16 09:59 Protein C Antigen 122 % (70-140) 09/08/16 15:35 Free Protein S 97 % normal (50-147) 09/08/16 15:35 Total Protein S 109 % (70-140) 09/08/16 15:35 Antithrombin III Ag 100 % (80-120) 09/08/16 15:35 Heparin Anti-Xa, Unfract Negative (Negative) 09/29/16 13:35 Factor V Activity 182 % (65-150) H 09/08/16 15:35 POC ABG pH 7.437 (7.35-7.45) 10/08/16 12:49 POC ABG pCO2 28.2 (35-45) L 10/08/16 12:49 POC ABG pO2 111 (80-105) H 10/08/16 12:49 POC ABG HCO3 19.0 10/08/16 12:49 POC ABG Total CO2 20 10/08/16 12:49 POC ABG O2 Sat 99 10/08/16 12:49 POC ABG Base Excess -5 10/08/16 12:49 FiO2 28 % 10/08/16 12:49 Sodium 139 mmol/L (137-145) 10/13/16 Unknown Potassium 3.8 mmol/L (3.6-5.0) 10/13/16 Unknown Chloride 95.8 mmol/L (98-107) L 10/13/16 Unknown Carbon Dioxide 23 mmol/L (22-30) 10/13/16 Unknown Anion Gap 24 mmol/L 10/13/16 Unknown BUN 82 mg/dL (7-17) H 10/13/16 Unknown Creatinine 2.6 mg/dL (0.7-1.2) H 10/13/16 Unknown Estimated GFR 24 ml/min 10/13/16 Unknown BUN/Creatinine Ratio 31.53 % 10/13/16 Unknown Glucose 152 mg/dL (65-100) H 10/13/16 Unknown POC Glucose 165 (70-105) H 10/13/16 06:22 Osmolality 351 Mosm/kg 09/16/16 11:47 Lactic Acid 4.50 mmol/L (0.7-2.0) H* 09/28/16 07:25 Calcium 8.7 mg/dL (8.4-10.2) 10/13/16 Unknown Phosphorus 2.80 mg/dL (2.5-4.5) 10/13/16 Unknown Magnesium 1.80 mg/dL (1.7-2.3) 10/13/16 Unknown Total Bilirubin 0.40 mg/dL (0.1-1.2) 10/10/16 05:00 Direct Bilirubin 0.3 mg/dL (0-0.2) H 10/10/16 05:00 Indirect Bilirubin 0.1 mg/dL 10/10/16 05:00 AST 21 units/L (5-40) 10/10/16 05:00 ALT < 5 units/L (7-56) L 10/10/16 05:00 Alkaline Phosphatase 319 units/L (35-129) H 10/10/16 05:00 Ammonia 27.0 umol/L (25-60) 09/07/16 08:37 Total Creatine Kinase 121 units/L (30-135) 09/29/16 20:12 CK-MB (CK-2) < 1.0 ng/mL (0.0-4.0) 09/29/16 20:12 CK-MB (CK-2) Rel Index 0.8 (0-4) 09/29/16 20:12 Troponin T 0.204 ng/mL (0.00-0.029) H* 09/29/16 20:12 C-Reactive Protein 15.80 mg/dL (0.00-1.30) H 10/11/16 04:15 Total Protein 5.1 g/dL (6.3-8.2) L 10/10/16 05:00 Albumin 1.0 g/dL (3.9-5) L 10/10/16 05:00 Albumin/Globulin Ratio 0.2 % 10/10/16 05:00 Triglycerides 137 mg/dL (2-149) 09/29/16 20:12 Cholesterol 31 mg/dL (50-199) L 09/29/16 20:12 LDL Cholesterol Direct 4 mg/dL (50-130) L 09/29/16 20:12 HDL Cholesterol 3 mg/dL (40-59) L 09/29/16 20:12 Cholesterol/HDL Ratio 10.33 % 09/29/16 20:12 Angiotensin Convert Enz See scanned report 09/08/16 11:48 Serotonin Release Assay See scanned report 09/29/16 13:35 TSH 1.010 mlU/mL (0.270-4.200) 09/07/16 08:37 HCG, Qual Negative (Negative) 09/03/16 00:10 Urine Color [place] (Yellow) 10/07/16 18:30 Urine Turbidity Turbid (Clear) 10/07/16 18:30 Urine pH 7.0 (5.0-7.0) 10/07/16 18:30 Ur Specific [place] 1.012 (1.003-1.030) 10/07/16 18:30 Urine Protein 100 mg/dl mg/dL (Negative) 10/07/16 18:30 Urine Glucose (UA) Neg mg/dL (Negative) 10/07/16 18:30 Urine Ketones Neg mg/dL (Negative) 10/07/16 18:30 Urine Blood Lg (Negative) 10/07/16 18:30 Urine Nitrite Neg (Negative) 10/07/16 18:30 Urine Bilirubin Neg (Negative) 10/07/16 18:30 Urine Urobilinogen < 2.0 mg/dL (<2.0) 10/07/16 18:30 Ur Leukocyte Esterase Lg (Negative) 10/07/16 18:30 Urine WBC (Auto) > 182.0 /HPF (0.0-6.0) H 10/07/16 18:30 Urine RBC (Auto) > 182.0 /HPF (0.0-6.0) 10/07/16 18:30 U Epithel Cells (Auto) 1.0 /HPF (0-13.0) 10/07/16 18:30 Urine Bacteria (Auto) 3+ /HPF (Negative) 10/07/16 18:30 Urine WBC Clumps 2+ /HPF 09/07/16 02:47 Hyaline Casts 4 /LPF 09/07/16 02:47 Urine Mucus Few /HPF 10/07/16 18:30 Urine Yeast (Budding) 3+ /HPF 10/07/16 18:30 Urine Eosinophils None seen (None Seen) 09/07/16 16:00 Urine Total Volume 1350 09/21/16 12:00 Urine Creatinine 54.8 mg/dL (0.1-20.0) H 09/21/16 12:00 Height (in) 67.0 inches 09/21/16 12:00 Weight (lb) 92.0 lbs 09/21/16 12:00 Creatinine Clearance 15 09/21/16 12:00 Urine Sodium 36 mEq/L 09/16/16 19:19 Urine Total Protein 16 mg/dL (5-11.8) H 09/16/16 19:19 Vancomycin Trough 2.3 ug/mL (5.0-20.0) L 09/21/16 13:00 Random Vancomycin 2.3 ug/mL (0-40.0) 09/09/16 03:00 Urine Opiates Screen Presumptive negative 09/03/16 15:11 Urine Methadone Screen Presumptive positive 09/03/16 15:11 Ur Barbiturates Screen Presumptive positive 09/03/16 15:11 Ur Phencyclidine Scrn Presumptive negative 09/03/16 15:11 Ur Amphetamines Screen Presumptive negative 09/03/16 15:11 U Benzodiazepines Scrn Presumptive negative 09/03/16 15:11 Urine Cocaine Screen Presumptive negative 09/03/16 15:11 U Marijuana (THC) Screen Presumptive positive 09/03/16 15:11 Drugs of Abuse Note Disclamer 09/03/16 15:11 Rheumatoid Factor 24 IU/ml (0-13) H 09/08/16 11:48 SAHIL Screen Negative (Negative) 09/07/16 09:20 Proteinase 3 (PR3) Ab <1.0 AI (<1.0) 09/07/16 09:20 Myeloperoxidase Ab <1.0 AI (<1.0) 09/07/16 09:20 Sjogren's Antibody <1.0 AI (<1.0) 09/08/16 15:35 Scl-70 Scleroderma Ab <1.0 AI (<1.0) 09/08/16 15:35 Centromere B Antibody <1.0 AI (<1.0) 09/08/16 12:02 Heparin-induced Plt Ab Negative (Negative) 09/29/16 13:35 UF Heparin High Dose 11 % Release 09/29/16 13:35 SUDHIR UFH Low Dose 0.1 6 % Release 09/29/16 13:35 SUDHIR UFH Low Dose 0.5 8 % Release 09/29/16 13:35 Cardiolipid IgG Ab <14 GPL (<=14) 09/12/16 09:59 Cardiolipid IgA Ab <11 APL (<=11) 09/12/16 09:59 Cardiolipid IgM Ab <12 MPL (<=12) 09/12/16 09:59 Complement C3 148 mg/dL (90-180) 09/07/16 09:20 Complement C4 58 mg/dL (16-47) H 09/07/16 09:20 RPR Nonreactive (Nonreactive) 09/08/16 11:48 Hepatitis A IgM Ab Non-reactive (NonReactive) 09/24/16 14:40 Hep Bs Antigen Non-reactive (Negative) 09/24/16 14:40 Hep B Core IgM Ab Non-reactive (NonReactive) 09/24/16 14:40 Hepatitis C Antibody Non-reactive (NonReactive) 09/24/16 14:40 HIV 1&2 Antibody Rapid Non react (Non React) 09/08/16 11:48 HIV P24 Antigen Non react (Non React) 09/08/16 11:48 Miscellaneous Test Flexitest 1 H 10/07/16 03:45 Blood Type A POSITIVE 10/09/16 07:20 Antibody Screen Negative 10/09/16 07:20 DELORIS Antibody Screen Negative 09/25/16 10:30 Crossmatch See Detail 10/09/16 07:20
[2016-10-13] MEDS: PROTONIX IV SCH (09:04)
--- NOTE | 2016-10-13 09:22 | Progress Note ---
Assessment and Plan Assessment: 1) Recurrent Sepsis: still leukocytosis and fever ? unclear source. repeat CT no leak no abscess. -Current sepsis etiology - peritonitis from gastric perforation +/- UTI. -Initial sepsis etiology - presumed aspiration pneumonia, and another septic episode on 09/23 from Candidemia. -CRP 19 on 10/08 2) Peritonitis: from gastric perforation from dislodged PEG with significant ascites -S/P exlap, repair of gastric perforation with wedge gastrectomy, abdominal washout, drain placement on 10/05. 3) Candidemia: -Blood cultures positive for Silvia albicans on 09/23 -Blood cultures positive on 09/25 -Blood cutlures negative on 09/30 -PICC line changed on 10/03 -Source ? gastric perf (PEG placed on 09/20) +/- TPN +/- central lines -TTE 10/07 no vegetations -PICC exchanged on 10/03 4) CA-UTI s/p gutierrez exchanged 5) Diarrhea - ? etiology ? antibiotic-induced, not better 6) Initial presumed aspiration pneumonia 7) Presumed UTI: urine cx 09/23 multiple species 8) Respiratory failure s/p trach 9) Recent CVA-left MCA CVA 10) Uncontrolled HTN 11) Acute on CKD 12) Extensive back skin peeling ? burn from gastric secretions. Doubt allergic reaction 13) Severe anemia; ? from GI bleed Plan: -follow-up repeat blood cultures and procalcitonin in view of fever and persistent leukocytosis -continue meropenem to cover peritonitis -continue micafungin day 14 of 14 to cover Silvia albicans (since last negative blood cx) -check legs US r/o DVT in view of persistent fever -consider imodium for diarrhea - all recent stool studies neg Thank you Dr Ribeiro for your consultation, will follow up with you. Pauline Carias MD Infectious Diseases Specialist [facility] ([facility] M [phone] O [phone] Subjective Date of service: 10/13/16 Principal diagnosis: hematochezia Interval history: More alert, open eyes spontaneously, not following commands, on the vent via trach, on vent A/P mode, no pressors. Still fever at 100.8 last 24h. +oliguric. + diarrhea leaking from rectal tube Microbiology: Blood cultures: 09/13 neg 09/23 Silvia albicans 09/25 Silvia 09/29 neg 10/07 NGTD Urine cultures: 09/10 neg 09/13 neg 8/4 10-100K mixed species 10/07 pending Respiratory cultures: 09/07 neg 09/13 neg 8 neg Wound cultures: Stool cultures: Current Antimicrobials: Meropenem 10/10 Micafungin 09/27 Previous Antimicrobials: Zosyn 10/07 Vancomycin PO 10/01 Metronidazole 09/25 Objective - Exam Narrative Exam: General appearance: somnolent non verbal, on the vent via trach no following commands Eyes: anicteric sclera, moist conjunctivae; PERRLA HENT: Atraumatic; oropharynx limited; Normal external ears. +NGT with greenish secretion Neck: +trach in place; supple, no thyromegaly or lymphadenopathy Lungs: coarse BS bilateral CV: tachycardic Abdomen: Soft, non-tender, +drain with purulent drainage, + diarrhea via rectal tube. +old PEG site no drainage. Extremities: +peripheral edema no extremity lymphadenopathy Skin: Julian sub mammary ulcers, extensive skin peeling on back Psych: somnolent . Neuro: somnolent non verbal on the vent. Lines: left arm PICC placed on 10/03 - Constitutional Vitals: Vital Signs Temp Pulse Resp BP Pulse Ox 99 F 112 H 22 108/81 100 10/13/16 08:00 10/13/16 09:03 10/13/16 08:00 10/13/16 09:03 10/13/16 08:00 Temperature -Last 24 Hours Temperature 99 F Temperature 100.1 F Temperature 100.4 F Temperature 100.8 F Temperature 100.4 F Temperature 99.5 F - Labs CBC & Chem 7: 10/13/16 Unknown 10/13/16 Unknown Labs: Abnormal lab results 10/09/16 10/12/16 10/12/16 Range/Units 07:20 12:27 18:18 WBC (4.5-11.0) K/mm3 RBC (3.65-5.03) M/mm3 Hgb (10.1-14.3) gm/dl Hct (30.3-42.9) % RDW (13.2-15.2) % Chloride (98-107) mmol/L BUN (7-17) mg/dL Creatinine (0.7-1.2) mg/dL Glucose (65-100) mg/dL POC Glucose 153 H 140 H (70-105) Crossmatch See Detail 10/12/16 10/13/16 10/13/16 Range/Units 23:46 06:22 Unknown WBC (4.5-11.0) K/mm3 RBC (3.65-5.03) M/mm3 Hgb (10.1-14.3) gm/dl Hct (30.3-42.9) % RDW (13.2-15.2) % Chloride 95.8 L (98-107) mmol/L BUN 82 H (7-17) mg/dL Creatinine 2.6 H (0.7-1.2) mg/dL Glucose 152 H (65-100) mg/dL POC Glucose 150 H 165 H (70-105) Crossmatch 10/13/16 Range/Units Unknown WBC 23.4 H (4.5-11.0) K/mm3 RBC 2.83 L (3.65-5.03) M/mm3 Hgb 8.7 L (10.1-14.3) gm/dl Hct 26.1 L (30.3-42.9) % RDW 18.1 H (13.2-15.2) % Chloride (98-107) mmol/L BUN (7-17) mg/dL Creatinine (0.7-1.2) mg/dL Glucose (65-100) mg/dL POC Glucose (70-105) Crossmatch
[2016-10-13] MEDS: MERREM 1,000 MG in NACL 0.9% 100 ML IV SCH (09:51)
--- NOTE | 2016-10-13 11:36 | Progress Note ---
Subjective Principal diagnosis: hematochezia Interval history: Patient was seen today for follow-up she does not follow any command Interdisciplinary notes were also reviewed Events of 24 hours vitals labs intake output medications were reviewed Social history: Reviewed Medication: Reviewed Family history: Reviewed General: no acute distress HEENT: Oral mucosa moist no uremic order Neck: Supple no JVD Chest: Clear to auscultation Heart: Regular rate and rhythm S1-S2 heard Abdomen: Soft nontender Extremity: Dry skin edema minimal Neurological: encephalopathic Assessment and plan Acute kidney injury in a patient who has history of chronic kidney disease/ renal vascular disease; patient has been reinitiated on renal replacement therapy due to decline in urine output/ultrasonogram did not show any evidence of hydronephrosis She will need to continue with dialysis 3 times a week for now and monitor for recovery of renal function GI bleed still continues to have heme positive stools GI following status post trach and PEG Paroxysmal atrial fibrillation status post failed cardioversion cardiology following/ Ultrasonogram showed echogenic kidney renovascular disease History of hypokalemia hypertension did not tolerate Aldactone which was discontinued due to hyperkalemia Respiratory failure currently remains intubated Anemia and renal failure to monitor and follow Status post CVA Leukocytosis is worsening and, current hemoglobin is 8.7 platelet count 200,000 Overall prognosis guarded to poor from renal standpoint We'll continue to follow and make recommendations from renal standpoint Objective - Vital Signs Vital signs: Vital Signs - 12hr 10/13/16 10/13/16 10/13/16 00:00 00:52 01:00 Temperature 100.4 F H Pulse Rate 118 H 118 H 115 H Pulse Rate [ 114 H From Monitor] Respiratory 24 28 H Rate Blood Pressure 185/113 187/110 159/96 O2 Sat by Pulse 99 99 Oximetry 10/13/16 10/13/16 10/13/16 02:00 03:00 03:29 Temperature Pulse Rate 121 H 120 H 119 H Pulse Rate [ From Monitor] Respiratory 30 H 27 H Rate Blood Pressure 145/93 162/90 153/90 O2 Sat by Pulse 98 99 Oximetry 10/13/16 10/13/16 10/13/16 03:47 03:53 04:00 Temperature 100.1 F H Pulse Rate 111 H 119 H Pulse Rate [ 108 H From Monitor] Respiratory 28 H 27 H Rate Blood Pressure 172/91 194/111 O2 Sat by Pulse 100 99 100 Oximetry 10/13/16 10/13/16 10/13/16 05:00 06:00 07:00 Temperature Pulse Rate 111 H 113 H 115 H Pulse Rate [ From Monitor] Respiratory 24 24 22 Rate Blood Pressure 138/75 150/76 159/87 O2 Sat by Pulse 100 100 100 Oximetry 10/13/16 10/13/16 10/13/16 07:42 08:00 09:03 Temperature 99 F Pulse Rate 115 H 110 H 112 H Pulse Rate [ From Monitor] Respiratory 22 Rate Blood Pressure 140/83 106/62 108/81 O2 Sat by Pulse 100 100 Oximetry - Lab 10/13/16 Unknown 10/13/16 Unknown Most recent lab results Calcium 8.7 mg/dL (8.4-10.2) 10/13/16 Unknown Phosphorus 2.80 mg/dL (2.5-4.5) 10/13/16 Unknown Magnesium 1.80 mg/dL (1.7-2.3) 10/13/16 Unknown Urine Creatinine 54.8 mg/dL (0.1-20.0) H 09/21/16 12:00 Urine Sodium 36 mEq/L 09/16/16 19:19 Urine Total Protein 16 mg/dL (5-11.8) H 09/16/16 19:19
--- NOTE | 2016-10-13 11:45 | Progress Note ---
Assessment and Plan - Patient Problems (1) Acute respiratory failure with hypoxia Current Visit: Yes Status: Acute Plan to address problem: Continue with mechanical ventilatory support Lung protective strategies -VAP bundle, HOB >40 - SCDs for VTE prophylaxis - Stress ulcer prophylaxis -Bronchodilators- h/o asthma -[place] catheter in this critically ill patient - TPN, accucheck with glycemic control - Agitation management/analgesia - daily SATs and SBTs as tolerated - ABGs and CXR -Trach care per RT (2) Acute CVA (cerebrovascular accident) Current Visit: Yes Status: Acute Plan to address problem: CTScan -subacute MCA territory infarct Secondary stroke prophylaxis Neuroprotective measures Aspiration precautions Neurology following (3) Chronic renal insufficiency Current Visit: Yes Status: Acute Qualifiers: Chronic kidney disease stage: C Plan to address problem: UF/HD per renal service Renal following (4) Uncontrolled hypertension Current Visit: Yes Status: Acute Plan to address problem: Monitor closely and adjust anti-hypertensive medications (5) Leukocytosis (leucocytosis) Current Visit: Yes Status: Acute Qualifiers: Leukocytosis type: leukemoid reaction Qualified Code(s): D72.823 - Leukemoid reaction Plan to address problem: On antibiotics and antifungal per ID service. Discussed with ID attending re my concerns with her leukocytosis. Monitor for now while on antibiotics and antifungal, abdominal imaging today. (6) Dislodged gastrostomy tube Current Visit: Yes Status: Acute Plan to address problem: With bowel perforation. Purulent drainage from JUAN drain. Remains NPO and on TPN for nutritional support. GI/Surgery following (7) Fungemia Current Visit: Yes Status: Acute Plan to address problem: Anti-fungal therapy per ID service. Subjective Date of service: 10/13/16 Principal diagnosis: hematochezia Interval history: Seen and examined. Vitals, labs, medications, chart reviewed. On mechanical ventilatory support , did not tolerate PSV today On TPN, with purulent drainage from the JUAN drain. No fevers.Currently no further surgical interventions On going leukocytosis. Discussed with RT and RN and on interdisciplinary rounds CTscan of the abdomen -no collections Objective - Exam Narrative Exam: General appearance: somnolent non verbal, on the vent via trach no following commands Eyes: anicteric sclera, moist conjunctivae; PERRLA HENT: Atraumatic; oropharynx limited; Normal external ears. +NGT with greenish secretion Neck: +trach in place; supple, no thyromegaly or lymphadenopathy Lungs: coarse BS bilateral CV: tachycardic Abdomen: Soft, non-tender, +drain with purulent drainage, + diarrhea via rectal tube. +old PEG site no drainage. Extremities: +peripheral edema no extremity lymphadenopathy Skin: Julian sub mammary ulcers, extensive skin peeling on back Psych: somnolent . Neuro: Awake and alert, not obeying commands Lines: left arm PICC placed on 10/03 Vital Signs - 12hr 10/13/16 10/13/16 10/13/16 00:00 00:52 01:00 Temperature 100.4 F H Pulse Rate 118 H 118 H 115 H Pulse Rate [ 114 H From Monitor] Respiratory 24 28 H Rate Blood Pressure 185/113 187/110 159/96 O2 Sat by Pulse 99 99 Oximetry O2 Sat by Pulse Oximetry [ Anterior Bilateral Throughout] 10/13/16 10/13/16 10/13/16 02:00 03:00 03:29 Temperature Pulse Rate 121 H 120 H 119 H Pulse Rate [ From Monitor] Respiratory 30 H 27 H Rate Blood Pressure 145/93 162/90 153/90 O2 Sat by Pulse 98 99 Oximetry O2 Sat by Pulse Oximetry [ Anterior Bilateral Throughout] 10/13/16 10/13/16 10/13/16 03:47 03:53 04:00 Temperature 100.1 F H Pulse Rate 111 H 119 H Pulse Rate [ 108 H From Monitor] Respiratory 28 H 27 H Rate Blood Pressure 172/91 194/111 O2 Sat by Pulse 100 99 100 Oximetry O2 Sat by Pulse Oximetry [ Anterior Bilateral Throughout] 10/13/16 10/13/16 10/13/16 05:00 06:00 07:00 Temperature Pulse Rate 111 H 113 H 115 H Pulse Rate [ From Monitor] Respiratory 24 24 22 Rate Blood Pressure 138/75 150/76 159/87 O2 Sat by Pulse 100 100 100 Oximetry O2 Sat by Pulse Oximetry [ Anterior Bilateral Throughout] 10/13/16 10/13/16 10/13/16 07:42 08:00 09:03 Temperature 99 F Pulse Rate 115 H 110 H 112 H Pulse Rate [ From Monitor] Respiratory 22 Rate Blood Pressure 140/83 106/62 108/81 O2 Sat by Pulse 100 100 Oximetry O2 Sat by Pulse Oximetry [ Anterior Bilateral Throughout] 10/13/16 10/13/1617 11:00 11:15 11:30 Temperature 99.0 F Pulse Rate 116 H 116 H 117 H Pulse Rate [ From Monitor] Respiratory 28 H Rate Blood Pressure 111/61 147/96 147/99 O2 Sat by Pulse Oximetry O2 Sat by Pulse 100 Oximetry [ Anterior Bilateral Throughout] Constitutional: no acute distress, other (grimaces on stimulation and nail bed pressure) Eyes: non-icteric, other (tracheostomy tube in midline of neck) ENT: oropharynx moist Neck: supple, no lymphadenopathy, no JVD Effort: mildly labored Ascultation: Bilateral: clear, diminished breath sounds (bases), rales, rhonchi (bases) Cardiovascular: regular rate and rhythm, other (episodes of tachycardia, no mururs, gallops or rubs noted) Gastrointestinal: hypoactive bowel sounds, soft, non-tender, non-distended Integumentary: other (erythema to skin of back with some healing areas; no obvious TEN's features) Extremities: no cyanosis, no edema, pulses normal, no ischemia or petechiae, edema Neurologic: pupils equal and round, other (not obeying commands) Psychiatric: other (unable to assess) CBC and BMP: 10/16/16 06:25 10/16/16 06:25 ABG, PT/INR, D-dimer: ABG POC ABG pH 7.437 (7.35-7.45) 10/08/16 12:49 POC ABG pCO2 28.2 (35-45) L 10/08/16 12:49 POC ABG pO2 111 (80-105) H 10/08/16 12:49 POC ABG HCO3 19.0 10/08/16 12:49 POC ABG Total CO2 20 10/08/16 12:49 POC ABG O2 Sat 99 10/08/16 12:49 PT/INR, D-dimer PT 19.0 Sec. (12.2-14.9) H 10/09/16 03:45 INR 1.51 (0.87-1.13) H 10/09/16 03:45 Abnormal lab findings: Abnormal Labs 09/03/16 09/03/16 09/03/16 12:12 15:07 16:20 WBC RBC Hgb Hct MCV MCH MCHC RDW Plt Count Lymph % (Auto) Cook % (Auto) Lymph # Cook # Seg Neutrophils % Seg Neuts % (Manual) Lymphocytes % (Manual) Monocytes % (Manual) Eosinophils % (Manual) Basophils % (Manual) Nucleated RBC % Seg Neutrophils # Seg Neutrophils # Man Lymphocytes # (Manual) Monocytes # (Manual) Eosinophils # (Manual) PT INR Fibrinogen dRVVT Confirm Interp Factor V Activity POC ABG pH 7.452 H POC ABG pCO2 POC ABG pO2 Sodium Potassium Chloride Carbon Dioxide BUN Creatinine Glucose POC Glucose 178 H Lactic Acid Calcium Phosphorus 2.20 L Magnesium 1.60 L Direct Bilirubin ALT Alkaline Phosphatase Troponin T C-Reactive Protein Total Protein Albumin Triglycerides Cholesterol LDL Cholesterol Direct HDL Cholesterol Urine WBC (Auto) Urine Creatinine Urine Total Protein Vancomycin Trough Rheumatoid Factor Complement C4 Miscellaneous Test Crossmatch 09/03/16 09/03/16 09/03/16 17:57 17:58 23:50 WBC RBC Hgb Hct MCV MCH MCHC RDW Plt Count Lymph % (Auto) Cook % (Auto) Lymph # Cook # Seg Neutrophils % Seg Neuts % (Manual) Lymphocytes % (Manual) Monocytes % (Manual) Eosinophils % (Manual) Basophils % (Manual) Nucleated RBC % Seg Neutrophils # Seg Neutrophils # Man Lymphocytes # (Manual) Monocytes # (Manual) Eosinophils # (Manual) PT INR Fibrinogen dRVVT Confirm Interp Factor V Activity POC ABG pH POC ABG pCO2 POC ABG pO2 Sodium Potassium Chloride Carbon Dioxide BUN Creatinine Glucose POC Glucose 162 H 145 H Lactic Acid Calcium Phosphorus 2.30 L Magnesium Direct Bilirubin ALT Alkaline Phosphatase Troponin T C-Reactive Protein Total Protein Albumin Triglycerides Cholesterol LDL Cholesterol Direct HDL Cholesterol Urine WBC (Auto) Urine Creatinine Urine Total Protein Vancomycin Trough Rheumatoid Factor Complement C4 Miscellaneous Test Crossmatch 09/04/16 09/04/16 09/04/16 03:31 03:31 05:42 WBC RBC Hgb 9.7 L D Hct MCV 72 L MCH 23 L MCHC RDW 17.5 H Plt Count Lymph % (Auto) 11.1 L Cook % (Auto) Lymph # Cook # Seg Neutrophils % 84.3 H Seg Neuts % (Manual) Lymphocytes % (Manual) Monocytes % (Manual) Eosinophils % (Manual) Basophils % (Manual) Nucleated RBC % Seg Neutrophils # 8.9 H Seg Neutrophils # Man Lymphocytes # (Manual) Monocytes # (Manual) Eosinophils # (Manual) PT INR Fibrinogen dRVVT Confirm Interp Factor V Activity POC ABG pH POC ABG pCO2 POC ABG pO2 Sodium 135 L Potassium 2.9 L* Chloride 97.2 L Carbon Dioxide 19 L BUN Creatinine 1.7 H Glucose 170 H POC Glucose 152 H Lactic Acid Calcium Phosphorus Magnesium Direct Bilirubin ALT Alkaline Phosphatase Troponin T C-Reactive Protein Total Protein Albumin Triglycerides 160 H Cholesterol LDL Cholesterol Direct HDL Cholesterol 31 L Urine WBC (Auto) Urine Creatinine Urine Total Protein Vancomycin Trough Rheumatoid Factor Complement C4 Miscellaneous Test Crossmatch 09/04/16 09/04/16 09/04/16 11:34 17:46 23:29 WBC RBC Hgb Hct MCV MCH MCHC RDW Plt Count Lymph % (Auto) Cook % (Auto) Lymph # Cook # Seg Neutrophils % Seg Neuts % (Manual) Lymphocytes % (Manual) Monocytes % (Manual) Eosinophils % (Manual) Basophils % (Manual) Nucleated RBC % Seg Neutrophils # Seg Neutrophils # Man Lymphocytes # (Manual) Monocytes # (Manual) Eosinophils # (Manual) PT INR Fibrinogen dRVVT Confirm Interp Factor V Activity POC ABG pH POC ABG pCO2 POC ABG pO2 Sodium Potassium Chloride Carbon Dioxide BUN Creatinine Glucose POC Glucose 165 H 210 H 139 H Lactic Acid Calcium Phosphorus Magnesium Direct Bilirubin ALT Alkaline Phosphatase Troponin T C-Reactive Protein Total Protein Albumin Triglycerides Cholesterol LDL Cholesterol Direct HDL Cholesterol Urine WBC (Auto) Urine Creatinine Urine Total Protein Vancomycin Trough Rheumatoid Factor Complement C4 Miscellaneous Test Crossmatch 09/05/16 09/05/16 09/05/16 04:05 04:05 05:38 WBC RBC Hgb Hct MCV 76 L D MCH 23 L MCHC RDW 17.8 H Plt Count Lymph % (Auto) Cook % (Auto) Lymph # Cook # Seg Neutrophils % Seg Neuts % (Manual) Lymphocytes % (Manual) Monocytes % (Manual) Eosinophils % (Manual) Basophils % (Manual) Nucleated RBC % Seg Neutrophils # Seg Neutrophils # Man Lymphocytes # (Manual) Monocytes # (Manual) Eosinophils # (Manual) PT INR Fibrinogen dRVVT Confirm Interp Factor V Activity POC ABG pH POC ABG pCO2 POC ABG pO2 Sodium 134 L Potassium Chloride Carbon Dioxide 18 L BUN Creatinine 1.8 H Glucose 192 H POC Glucose 175 H Lactic Acid Calcium Phosphorus Magnesium Direct Bilirubin ALT Alkaline Phosphatase Troponin T C-Reactive Protein Total Protein Albumin Triglycerides Cholesterol LDL Cholesterol Direct HDL Cholesterol Urine WBC (Auto) Urine Creatinine Urine Total Protein Vancomycin Trough Rheumatoid Factor Complement C4 Miscellaneous Test Crossmatch 09/05/16 09/05/16 09/05/16 11:38 17:48 23:22 WBC RBC Hgb Hct MCV MCH MCHC RDW Plt Count Lymph % (Auto) Cook % (Auto) Lymph # Cook # Seg Neutrophils % Seg Neuts % (Manual) Lymphocytes % (Manual) Monocytes % (Manual) Eosinophils % (Manual) Basophils % (Manual) Nucleated RBC % Seg Neutrophils # Seg Neutrophils # Man Lymphocytes # (Manual) Monocytes # (Manual) Eosinophils # (Manual) PT INR Fibrinogen dRVVT Confirm Interp Factor V Activity POC ABG pH POC ABG pCO2 POC ABG pO2 Sodium Potassium Chloride Carbon Dioxide BUN Creatinine Glucose POC Glucose 164 H 186 H 195 H Lactic Acid Calcium Phosphorus Magnesium Direct Bilirubin ALT Alkaline Phosphatase Troponin T C-Reactive Protein Total Protein Albumin Triglycerides Cholesterol LDL Cholesterol Direct HDL Cholesterol Urine WBC (Auto) Urine Creatinine Urine Total Protein Vancomycin Trough Rheumatoid Factor Complement C4 Miscellaneous Test Crossmatch 09/06/16 09/06/16 09/06/16 04:12 05:59 07:32 WBC RBC Hgb Hct MCV MCH MCHC RDW Plt Count Lymph % (Auto) Cook % (Auto) Lymph # Cook # Seg Neutrophils % Seg Neuts % (Manual) Lymphocytes % (Manual) Monocytes % (Manual) Eosinophils % (Manual) Basophils % (Manual) Nucleated RBC % Seg Neutrophils # Seg Neutrophils # Man Lymphocytes # (Manual) Monocytes # (Manual) Eosinophils # (Manual) PT INR Fibrinogen dRVVT Confirm Interp Factor V Activity POC ABG pH 7.514 H POC ABG pCO2 29.1 L POC ABG pO2 72 L Sodium 133 L Potassium 3.4 L Chloride 94.9 L Carbon Dioxide 19 L BUN 30 H Creatinine 2.1 H Glucose 139 H POC Glucose 146 H Lactic Acid Calcium Phosphorus Magnesium Direct Bilirubin ALT Alkaline Phosphatase Troponin T C-Reactive Protein Total Protein Albumin Triglycerides Cholesterol LDL Cholesterol Direct HDL Cholesterol Urine WBC (Auto) Urine Creatinine Urine Total Protein Vancomycin Trough Rheumatoid Factor Complement C4 Miscellaneous Test Crossmatch 09/06/16 09/06/16 09/06/16 11:57 17:58 19:02 WBC RBC Hgb Hct MCV MCH MCHC RDW Plt Count Lymph % (Auto) Cook % (Auto) Lymph # Cook # Seg Neutrophils % Seg Neuts % (Manual) Lymphocytes % (Manual) Monocytes % (Manual) Eosinophils % (Manual) Basophils % (Manual) Nucleated RBC % Seg Neutrophils # Seg Neutrophils # Man Lymphocytes # (Manual) Monocytes # (Manual) Eosinophils # (Manual) PT INR Fibrinogen dRVVT Confirm Interp Factor V Activity POC ABG pH 7.465 H POC ABG pCO2 32.0 L POC ABG pO2 Sodium Potassium Chloride Carbon Dioxide BUN Creatinine Glucose POC Glucose 165 H 160 H Lactic Acid Calcium Phosphorus Magnesium Direct Bilirubin ALT Alkaline Phosphatase Troponin T C-Reactive Protein Total Protein Albumin Triglycerides Cholesterol LDL Cholesterol Direct HDL Cholesterol Urine WBC (Auto) Urine Creatinine Urine Total Protein Vancomycin Trough Rheumatoid Factor Complement C4 Miscellaneous Test Crossmatch 09/06/16 09/07/16 09/07/16 23:45 02:47 02:47 WBC RBC Hgb Hct MCV MCH MCHC RDW Plt Count Lymph % (Auto) Cook % (Auto) Lymph # Cook # Seg Neutrophils % Seg Neuts % (Manual) Lymphocytes % (Manual) Monocytes % (Manual) Eosinophils % (Manual) Basophils % (Manual) Nucleated RBC % Seg Neutrophils # Seg Neutrophils # Man Lymphocytes # (Manual) Monocytes # (Manual) Eosinophils # (Manual) PT INR Fibrinogen dRVVT Confirm Interp Factor V Activity POC ABG pH POC ABG pCO2 POC ABG pO2 Sodium Potassium Chloride Carbon Dioxide BUN Creatinine Glucose POC Glucose 204 H Lactic Acid Calcium Phosphorus Magnesium Direct Bilirubin ALT Alkaline Phosphatase Troponin T C-Reactive Protein Total Protein Albumin Triglycerides Cholesterol LDL Cholesterol Direct HDL Cholesterol Urine WBC (Auto) 68.0 H Urine Creatinine 106.1 H Urine Total Protein Vancomycin Trough Rheumatoid Factor Complement C4 Miscellaneous Test Crossmatch 09/07/16 09/07/16 09/07/16 04:50 06:19 06:39 WBC RBC Hgb Hct MCV MCH MCHC RDW Plt Count Lymph % (Auto) Cook % (Auto) Lymph # Cook # Seg Neutrophils % Seg Neuts % (Manual) Lymphocytes % (Manual) Monocytes % (Manual) Eosinophils % (Manual) Basophils % (Manual) Nucleated RBC % Seg Neutrophils # Seg Neutrophils # Man Lymphocytes # (Manual) Monocytes # (Manual) Eosinophils # (Manual) PT INR Fibrinogen dRVVT Confirm Interp Factor V Activity POC ABG pH 7.457 H POC ABG pCO2 32.1 L POC ABG pO2 76 L Sodium 132 L Potassium Chloride 94.7 L Carbon Dioxide BUN 53 H Creatinine 2.9 H Glucose 151 H POC Glucose 149 H Lactic Acid Calcium Phosphorus Magnesium Direct Bilirubin ALT Alkaline Phosphatase Troponin T C-Reactive Protein Total Protein Albumin Triglycerides Cholesterol LDL Cholesterol Direct HDL Cholesterol Urine WBC (Auto) Urine Creatinine Urine Total Protein Vancomycin Trough Rheumatoid Factor Complement C4 Miscellaneous Test Crossmatch 09/07/16 09/07/16 09/07/16 09:20 11:43 11:43 WBC 19.4 H RBC Hgb 8.3 L Hct 26.4 L D MCV 72 L D MCH 22 L MCHC RDW 17.9 H Plt Count Lymph % (Auto) 8.5 L Cook % (Auto) Lymph # Cook # 1.0 H Seg Neutrophils % 85.8 H Seg Neuts % (Manual) Lymphocytes % (Manual) Monocytes % (Manual) Eosinophils % (Manual) Basophils % (Manual) Nucleated RBC % Seg Neutrophils # 16.6 H Seg Neutrophils # Man Lymphocytes # (Manual) Monocytes # (Manual) Eosinophils # (Manual) PT INR Fibrinogen dRVVT Confirm Interp Factor V Activity POC ABG pH POC ABG pCO2 POC ABG pO2 Sodium 134 L Potassium Chloride 97.2 L Carbon Dioxide 20 L BUN 58 H Creatinine 2.9 H Glucose 147 H POC Glucose Lactic Acid Calcium Phosphorus 2.40 L Magnesium 2.40 H Direct Bilirubin ALT Alkaline Phosphatase Troponin T C-Reactive Protein Total Protein 5.8 L Albumin 2.2 L Triglycerides Cholesterol LDL Cholesterol Direct HDL Cholesterol Urine WBC (Auto) Urine Creatinine Urine Total Protein Vancomycin Trough Rheumatoid Factor Complement C4 58 H Miscellaneous Test Crossmatch 09/07/16 09/07/16 09/07/16 11:50 16:00 17:31 WBC RBC Hgb Hct MCV MCH MCHC RDW Plt Count Lymph % (Auto) Cook % (Auto) Lymph # Cook # Seg Neutrophils % Seg Neuts % (Manual) Lymphocytes % (Manual) Monocytes % (Manual) Eosinophils % (Manual) Basophils % (Manual) Nucleated RBC % Seg Neutrophils # Seg Neutrophils # Man Lymphocytes # (Manual) Monocytes # (Manual) Eosinophils # (Manual) PT INR Fibrinogen dRVVT Confirm Interp Factor V Activity POC ABG pH POC ABG pCO2 POC ABG pO2 158 H Sodium Potassium Chloride Carbon Dioxide BUN Creatinine Glucose POC Glucose 175 H Lactic Acid Calcium Phosphorus Magnesium Direct Bilirubin ALT Alkaline Phosphatase Troponin T C-Reactive Protein Total Protein Albumin Triglycerides Cholesterol LDL Cholesterol Direct HDL Cholesterol Urine WBC (Auto) Urine Creatinine 66.3 H Urine Total Protein Vancomycin Trough Rheumatoid Factor Complement C4 Miscellaneous Test Crossmatch 09/07/16 09/08/16 09/08/16 23:50 05:46 06:18 WBC 17.8 H RBC 3.58 L Hgb 8.1 L Hct 25.5 L MCV 71 L MCH 23 L MCHC RDW 18.4 H Plt Count Lymph % (Auto) Cook % (Auto) Lymph # Cook # Seg Neutrophils % Seg Neuts % (Manual) 92.0 H Lymphocytes % (Manual) 6.0 L Monocytes % (Manual) Eosinophils % (Manual) Basophils % (Manual) Nucleated RBC % Seg Neutrophils # Seg Neutrophils # Man 16.4 H Lymphocytes # (Manual) 1.1 L Monocytes # (Manual) Eosinophils # (Manual) PT INR Fibrinogen dRVVT Confirm Interp Factor V Activity POC ABG pH POC ABG pCO2 34.3 L POC ABG pO2 71 L Sodium Potassium Chloride Carbon Dioxide BUN Creatinine Glucose POC Glucose 216 H Lactic Acid Calcium Phosphorus Magnesium Direct Bilirubin ALT Alkaline Phosphatase Troponin T C-Reactive Protein Total Protein Albumin Triglycerides Cholesterol LDL Cholesterol Direct HDL Cholesterol Urine WBC (Auto) Urine Creatinine Urine Total Protein Vancomycin Trough Rheumatoid Factor Complement C4 Miscellaneous Test Crossmatch 09/08/16 09/08/16 09/08/16 06:18 06:51 10:55 WBC RBC Hgb Hct MCV MCH MCHC RDW Plt Count Lymph % (Auto) Cook % (Auto) Lymph # Cook # Seg Neutrophils % Seg Neuts % (Manual) Lymphocytes % (Manual) Monocytes % (Manual) Eosinophils % (Manual) Basophils % (Manual) Nucleated RBC % Seg Neutrophils # Seg Neutrophils # Man Lymphocytes # (Manual) Monocytes # (Manual) Eosinophils # (Manual) PT INR Fibrinogen dRVVT Confirm Interp Factor V Activity POC ABG pH POC ABG pCO2 POC ABG pO2 Sodium 133 L Potassium Chloride 96.9 L Carbon Dioxide 20 L BUN 63 H Creatinine 2.7 H Glucose 195 H POC Glucose 204 H 169 H Lactic Acid Calcium Phosphorus Magnesium Direct Bilirubin ALT Alkaline Phosphatase Troponin T C-Reactive Protein Total Protein Albumin Triglycerides Cholesterol LDL Cholesterol Direct HDL Cholesterol Urine WBC (Auto) Urine Creatinine Urine Total Protein Vancomycin Trough Rheumatoid Factor Complement C4 Miscellaneous Test Crossmatch 09/08/16 09/08/16 09/08/16 11:48 11:48 11:48 WBC RBC Hgb Hct MCV MCH MCHC RDW Plt Count Lymph % (Auto) Cook % (Auto) Lymph # Cook # Seg Neutrophils % Seg Neuts % (Manual) Lymphocytes % (Manual) Monocytes % (Manual) Eosinophils % (Manual) Basophils % (Manual) Nucleated RBC % Seg Neutrophils # Seg Neutrophils # Man Lymphocytes # (Manual) Monocytes # (Manual) Eosinophils # (Manual) PT INR Fibrinogen 750 H dRVVT Confirm Interp Factor V Activity POC ABG pH POC ABG pCO2 POC ABG pO2 Sodium Potassium Chloride Carbon Dioxide BUN Creatinine Glucose POC Glucose Lactic Acid Calcium Phosphorus Magnesium Direct Bilirubin ALT Alkaline Phosphatase Troponin T C-Reactive Protein 15.70 H Total Protein Albumin Triglycerides Cholesterol LDL Cholesterol Direct HDL Cholesterol Urine WBC (Auto) Urine Creatinine Urine Total Protein Vancomycin Trough Rheumatoid Factor 24 H Complement C4 Miscellaneous Test Crossmatch 09/08/16 09/08/16 09/09/16 15:35 18:25 00:24 WBC RBC Hgb Hct MCV MCH MCHC RDW Plt Count Lymph % (Auto) Cook % (Auto) Lymph # Cook # Seg Neutrophils % Seg Neuts % (Manual) Lymphocytes % (Manual) Monocytes % (Manual) Eosinophils % (Manual) Basophils % (Manual) Nucleated RBC % Seg Neutrophils # Seg Neutrophils # Man Lymphocytes # (Manual) Monocytes # (Manual) Eosinophils # (Manual) PT INR Fibrinogen dRVVT Confirm Interp Factor V Activity 182 H POC ABG pH POC ABG pCO2 POC ABG pO2 Sodium Potassium Chloride Carbon Dioxide BUN Creatinine Glucose POC Glucose 184 H 216 H Lactic Acid Calcium Phosphorus Magnesium Direct Bilirubin ALT Alkaline Phosphatase Troponin T C-Reactive Protein Total Protein Albumin Triglycerides Cholesterol LDL Cholesterol Direct HDL Cholesterol Urine WBC (Auto) Urine Creatinine Urine Total Protein Vancomycin Trough Rheumatoid Factor Complement C4 Miscellaneous Test Crossmatch 09/09/16 09/09/16 09/09/16 03:00 03:00 04:04 WBC 27.9 H RBC Hgb 8.7 L Hct 28.1 L MCV 72 L MCH 22 L MCHC RDW 18.4 H Plt Count 485 H Lymph % (Auto) Cook % (Auto) Lymph # Cook # Seg Neutrophils % Seg Neuts % (Manual) 77.0 H Lymphocytes % (Manual) 9.0 L Monocytes % (Manual) Eosinophils % (Manual) Basophils % (Manual) Nucleated RBC % Seg Neutrophils # Seg Neutrophils # Man 21.5 H Lymphocytes # (Manual) Monocytes # (Manual) 2.0 H Eosinophils # (Manual) PT INR Fibrinogen dRVVT Confirm Interp Factor V Activity POC ABG pH POC ABG pCO2 POC ABG pO2 121 H Sodium 135 L Potassium Chloride 96.3 L Carbon Dioxide 21 L BUN 83 H Creatinine 3.0 H Glucose 135 H POC Glucose Lactic Acid Calcium Phosphorus Magnesium Direct Bilirubin ALT Alkaline Phosphatase Troponin T C-Reactive Protein Total Protein Albumin Triglycerides Cholesterol LDL Cholesterol Direct HDL Cholesterol Urine WBC (Auto) Urine Creatinine Urine Total Protein Vancomycin Trough Rheumatoid Factor Complement C4 Miscellaneous Test Crossmatch 09/09/16 09/09/16 09/09/16 05:41 11:55 14:13 WBC RBC Hgb Hct MCV MCH MCHC RDW Plt Count Lymph % (Auto) Cook % (Auto) Lymph # Cook # Seg Neutrophils % Seg Neuts % (Manual) Lymphocytes % (Manual) Monocytes % (Manual) Eosinophils % (Manual) Basophils % (Manual) Nucleated RBC % Seg Neutrophils # Seg Neutrophils # Man Lymphocytes # (Manual) Monocytes # (Manual) Eosinophils # (Manual) PT INR Fibrinogen dRVVT Confirm Interp Factor V Activity POC ABG pH POC ABG pCO2 POC ABG pO2 Sodium Potassium Chloride Carbon Dioxide BUN Creatinine Glucose POC Glucose 155 H 186 H Lactic Acid Calcium Phosphorus Magnesium Direct Bilirubin ALT Alkaline Phosphatase Troponin T C-Reactive Protein Total Protein Albumin Triglycerides Cholesterol LDL Cholesterol Direct HDL Cholesterol Urine WBC (Auto) 25.0 H Urine Creatinine Urine Total Protein Vancomycin Trough Rheumatoid Factor Complement C4 Miscellaneous Test Crossmatch 09/09/16 09/09/16 09/10/16 17:33 23:13 05:09 WBC RBC Hgb Hct MCV MCH MCHC RDW Plt Count Lymph % (Auto) Cook % (Auto) Lymph # Cook # Seg Neutrophils % Seg Neuts % (Manual) Lymphocytes % (Manual) Monocytes % (Manual) Eosinophils % (Manual) Basophils % (Manual) Nucleated RBC % Seg Neutrophils # Seg Neutrophils # Man Lymphocytes # (Manual) Monocytes # (Manual) Eosinophils # (Manual) PT INR Fibrinogen dRVVT Confirm Interp Factor V Activity POC ABG pH POC ABG pCO2 POC ABG pO2 74 L Sodium Potassium Chloride Carbon Dioxide BUN Creatinine Glucose POC Glucose 211 H 215 H Lactic Acid Calcium Phosphorus Magnesium Direct Bilirubin ALT Alkaline Phosphatase Troponin T C-Reactive Protein Total Protein Albumin Triglycerides Cholesterol LDL Cholesterol Direct HDL Cholesterol Urine WBC (Auto) Urine Creatinine Urine Total Protein Vancomycin Trough Rheumatoid Factor Complement C4 Miscellaneous Test Crossmatch 09/10/16 09/10/16 09/10/16 05:17 05:17 11:31 WBC 15.8 H RBC 3.25 L Hgb 7.3 L Hct 22.9 L MCV 71 L MCH 23 L MCHC RDW 18.4 H Plt Count Lymph % (Auto) Cook % (Auto) Lymph # Cook # Seg Neutrophils % Seg Neuts % (Manual) 91.0 H Lymphocytes % (Manual) 4.0 L Monocytes % (Manual) Eosinophils % (Manual) Basophils % (Manual) Nucleated RBC % Seg Neutrophils # Seg Neutrophils # Man 14.4 H Lymphocytes # (Manual) 0.6 L Monocytes # (Manual) Eosinophils # (Manual) PT INR Fibrinogen dRVVT Confirm Interp Factor V Activity POC ABG pH POC ABG pCO2 POC ABG pO2 Sodium Potassium Chloride Carbon Dioxide 21 L BUN 93 H Creatinine 2.9 H Glucose 146 H POC Glucose 188 H Lactic Acid Calcium 8.1 L Phosphorus Magnesium Direct Bilirubin ALT Alkaline Phosphatase Troponin T C-Reactive Protein Total Protein Albumin Triglycerides Cholesterol LDL Cholesterol Direct HDL Cholesterol Urine WBC (Auto) Urine Creatinine Urine Total Protein Vancomycin Trough Rheumatoid Factor Complement C4 Miscellaneous Test Crossmatch 09/10/16 09/10/16 09/10/16 13:17 17:20 23:32 WBC RBC Hgb Hct MCV MCH MCHC RDW Plt Count Lymph % (Auto) Cook % (Auto) Lymph # Cook # Seg Neutrophils % Seg Neuts % (Manual) Lymphocytes % (Manual) Monocytes % (Manual) Eosinophils % (Manual) Basophils % (Manual) Nucleated RBC % Seg Neutrophils # Seg Neutrophils # Man Lymphocytes # (Manual) Monocytes # (Manual) Eosinophils # (Manual) PT INR Fibrinogen dRVVT Confirm Interp Factor V Activity POC ABG pH POC ABG pCO2 POC ABG pO2 Sodium Potassium Chloride Carbon Dioxide BUN Creatinine Glucose POC Glucose 199 H 186 H Lactic Acid Calcium Phosphorus Magnesium Direct Bilirubin ALT Alkaline Phosphatase Troponin T C-Reactive Protein Total Protein Albumin Triglycerides Cholesterol LDL Cholesterol Direct HDL Cholesterol Urine WBC (Auto) Urine Creatinine Urine Total Protein Vancomycin Trough Rheumatoid Factor Complement C4 Miscellaneous Test Crossmatch See Detail 09/11/16 09/11/16 09/11/16 05:10 05:10 05:17 WBC 28.4 H RBC Hgb 9.2 L Hct 29.3 L D MCV 73 L MCH 23 L MCHC RDW 18.9 H Plt Count 452 H Lymph % (Auto) Cook % (Auto) Lymph # Cook # Seg Neutrophils % Seg Neuts % (Manual) 89.5 H Lymphocytes % (Manual) 2.0 L Monocytes % (Manual) Eosinophils % (Manual) Basophils % (Manual) Nucleated RBC % Seg Neutrophils # Seg Neutrophils # Man 25.4 H Lymphocytes # (Manual) 0.6 L Monocytes # (Manual) 1.3 H Eosinophils # (Manual) PT INR Fibrinogen dRVVT Confirm Interp Factor V Activity POC ABG pH POC ABG pCO2 POC ABG pO2 Sodium 136 L Potassium Chloride Carbon Dioxide 18 L BUN 107 H Creatinine 2.6 H Glucose 187 H POC Glucose 230 H Lactic Acid Calcium 8.3 L Phosphorus Magnesium Direct Bilirubin ALT Alkaline Phosphatase Troponin T C-Reactive Protein Total Protein Albumin Triglycerides Cholesterol LDL Cholesterol Direct HDL Cholesterol Urine WBC (Auto) Urine Creatinine Urine Total Protein Vancomycin Trough Rheumatoid Factor Complement C4 Miscellaneous Test Crossmatch 09/11/16 09/11/16 09/11/16 05:55 12:02 17:32 WBC RBC Hgb Hct MCV MCH MCHC RDW Plt Count Lymph % (Auto) Cook % (Auto) Lymph # Cook # Seg Neutrophils % Seg Neuts % (Manual) Lymphocytes % (Manual) Monocytes % (Manual) Eosinophils % (Manual) Basophils % (Manual) Nucleated RBC % Seg Neutrophils # Seg Neutrophils # Man Lymphocytes # (Manual) Monocytes # (Manual) Eosinophils # (Manual) PT INR Fibrinogen dRVVT Confirm Interp Factor V Activity POC ABG pH POC ABG pCO2 33.8 L POC ABG pO2 Sodium Potassium Chloride Carbon Dioxide BUN Creatinine Glucose POC Glucose 191 H 239 H Lactic Acid Calcium Phosphorus Magnesium Direct Bilirubin ALT Alkaline Phosphatase Troponin T C-Reactive Protein Total Protein Albumin Triglycerides Cholesterol LDL Cholesterol Direct HDL Cholesterol Urine WBC (Auto) Urine Creatinine Urine Total Protein Vancomycin Trough Rheumatoid Factor Complement C4 Miscellaneous Test Crossmatch 09/11/16 09/12/16 09/12/16 23:52 05:09 05:32 WBC RBC Hgb Hct MCV MCH MCHC RDW Plt Count Lymph % (Auto) Cook % (Auto) Lymph # Cook # Seg Neutrophils % Seg Neuts % (Manual) Lymphocytes % (Manual) Monocytes % (Manual) Eosinophils % (Manual) Basophils % (Manual) Nucleated RBC % Seg Neutrophils # Seg Neutrophils # Man Lymphocytes # (Manual) Monocytes # (Manual) Eosinophils # (Manual) PT INR Fibrinogen dRVVT Confirm Interp Factor V Activity POC ABG pH POC ABG pCO2 34.6 L POC ABG pO2 Sodium Potassium Chloride Carbon Dioxide BUN Creatinine Glucose POC Glucose 265 H 184 H Lactic Acid Calcium Phosphorus Magnesium Direct Bilirubin ALT Alkaline Phosphatase Troponin T C-Reactive Protein Total Protein Albumin Triglycerides Cholesterol LDL Cholesterol Direct HDL Cholesterol Urine WBC (Auto) Urine Creatinine Urine Total Protein Vancomycin Trough Rheumatoid Factor Complement C4 Miscellaneous Test Crossmatch 09/12/16 09/12/16 09/12/16 06:45 06:45 07:22 WBC 31.7 H RBC 3.54 L Hgb 8.3 L Hct 25.9 L MCV 73 L MCH 23 L MCHC RDW 18.9 H Plt Count Lymph % (Auto) Cook % (Auto) Lymph # Cook # Seg Neutrophils % Seg Neuts % (Manual) 88.5 H Lymphocytes % (Manual) 4.5 L Monocytes % (Manual) Eosinophils % (Manual) Basophils % (Manual) Nucleated RBC % Seg Neutrophils # Seg Neutrophils # Man 28.1 H Lymphocytes # (Manual) Monocytes # (Manual) 1.0 H Eosinophils # (Manual) PT INR Fibrinogen dRVVT Confirm Interp Factor V Activity POC ABG pH POC ABG pCO2 POC ABG pO2 Sodium Potassium Chloride Carbon Dioxide 20 L BUN 115 H Creatinine 2.7 H Glucose 165 H POC Glucose Lactic Acid Calcium 8.0 L Phosphorus Magnesium Direct Bilirubin ALT Alkaline Phosphatase Troponin T C-Reactive Protein Total Protein Albumin Triglycerides 217 H Cholesterol LDL Cholesterol Direct HDL Cholesterol Urine WBC (Auto) Urine Creatinine Urine Total Protein Vancomycin Trough Rheumatoid Factor Complement C4 Miscellaneous Test Crossmatch 09/12/16 09/12/16 09/12/16 07:22 09:59 12:21 WBC RBC Hgb Hct MCV MCH MCHC RDW Plt Count Lymph % (Auto) Cook % (Auto) Lymph # Cook # Seg Neutrophils % Seg Neuts % (Manual) Lymphocytes % (Manual) Monocytes % (Manual) Eosinophils % (Manual) Basophils % (Manual) Nucleated RBC % Seg Neutrophils # Seg Neutrophils # Man Lymphocytes # (Manual) Monocytes # (Manual) Eosinophils # (Manual) PT INR Fibrinogen dRVVT Confirm Interp Positive H Factor V Activity POC ABG pH POC ABG pCO2 POC ABG pO2 Sodium Potassium Chloride Carbon Dioxide BUN Creatinine Glucose POC Glucose 224 H Lactic Acid Calcium Phosphorus Magnesium Direct Bilirubin ALT Alkaline Phosphatase Troponin T C-Reactive Protein 1.70 H Total Protein Albumin Triglycerides Cholesterol LDL Cholesterol Direct HDL Cholesterol Urine WBC (Auto) Urine Creatinine Urine Total Protein Vancomycin Trough Rheumatoid Factor Complement C4 Miscellaneous Test Crossmatch 09/12/16 09/12/16 09/13/16 16:51 23:28 04:00 WBC 45.0 H* RBC Hgb 9.4 L Hct MCV 75 L MCH 23 L MCHC RDW 19.0 H Plt Count 470 H Lymph % (Auto) Cook % (Auto) Lymph # Cook # Seg Neutrophils % Seg Neuts % (Manual) 89.0 H Lymphocytes % (Manual) 5.0 L Monocytes % (Manual) Eosinophils % (Manual) Basophils % (Manual) Nucleated RBC % Seg Neutrophils # Seg Neutrophils # Man 40.1 H Lymphocytes # (Manual) Monocytes # (Manual) Eosinophils # (Manual) PT INR Fibrinogen dRVVT Confirm Interp Factor V Activity POC ABG pH POC ABG pCO2 POC ABG pO2 Sodium Potassium Chloride Carbon Dioxide BUN Creatinine Glucose POC Glucose 169 H 150 H Lactic Acid Calcium Phosphorus Magnesium Direct Bilirubin ALT Alkaline Phosphatase Troponin T C-Reactive Protein Total Protein Albumin Triglycerides Cholesterol LDL Cholesterol Direct HDL Cholesterol Urine WBC (Auto) Urine Creatinine Urine Total Protein Vancomycin Trough Rheumatoid Factor Complement C4 Miscellaneous Test Crossmatch 09/13/16 09/13/16 09/13/16 04:00 11:26 17:31 WBC RBC Hgb Hct MCV MCH MCHC RDW Plt Count Lymph % (Auto) Cook % (Auto) Lymph # Cook # Seg Neutrophils % Seg Neuts % (Manual) Lymphocytes % (Manual) Monocytes % (Manual) Eosinophils % (Manual) Basophils % (Manual) Nucleated RBC % Seg Neutrophils # Seg Neutrophils # Man Lymphocytes # (Manual) Monocytes # (Manual) Eosinophils # (Manual) PT INR Fibrinogen dRVVT Confirm Interp Factor V Activity POC ABG pH POC ABG pCO2 POC ABG pO2 Sodium Potassium Chloride Carbon Dioxide 20 L BUN 116 H Creatinine 3.0 H Glucose 172 H POC Glucose 140 H 183 H Lactic Acid Calcium Phosphorus Magnesium Direct Bilirubin ALT Alkaline Phosphatase Troponin T C-Reactive Protein Total Protein 6.2 L Albumin 2.9 L Triglycerides Cholesterol LDL Cholesterol Direct HDL Cholesterol Urine WBC (Auto) Urine Creatinine Urine Total Protein Vancomycin Trough Rheumatoid Factor Complement C4 Miscellaneous Test Crossmatch 09/13/16 09/14/16 09/14/16 23:23 04:06 04:07 WBC 29.4 H RBC Hgb 8.9 L Hct 27.3 L MCV 75 L MCH 24 L MCHC RDW 19.1 H Plt Count Lymph % (Auto) Cook % (Auto) Lymph # Cook # Seg Neutrophils % Seg Neuts % (Manual) 84.0 H Lymphocytes % (Manual) 6.0 L Monocytes % (Manual) 9.0 H Eosinophils % (Manual) Basophils % (Manual) Nucleated RBC % Seg Neutrophils # Seg Neutrophils # Man 24.7 H Lymphocytes # (Manual) Monocytes # (Manual) 2.6 H Eosinophils # (Manual) PT INR Fibrinogen dRVVT Confirm Interp Factor V Activity POC ABG pH 7.342 L POC ABG pCO2 POC ABG pO2 116 H Sodium Potassium Chloride Carbon Dioxide BUN Creatinine Glucose POC Glucose 154 H Lactic Acid Calcium Phosphorus Magnesium Direct Bilirubin ALT Alkaline Phosphatase Troponin T C-Reactive Protein Total Protein Albumin Triglycerides Cholesterol LDL Cholesterol Direct HDL Cholesterol Urine WBC (Auto) Urine Creatinine Urine Total Protein Vancomycin Trough Rheumatoid Factor Complement C4 Miscellaneous Test Crossmatch 09/14/16 09/14/16 09/14/16 04:07 05:29 12:19 WBC RBC Hgb Hct MCV MCH MCHC RDW Plt Count Lymph % (Auto) Cook % (Auto) Lymph # Cook # Seg Neutrophils % Seg Neuts % (Manual) Lymphocytes % (Manual) Monocytes % (Manual) Eosinophils % (Manual) Basophils % (Manual) Nucleated RBC % Seg Neutrophils # Seg Neutrophils # Man Lymphocytes # (Manual) Monocytes # (Manual) Eosinophils # (Manual) PT INR Fibrinogen dRVVT Confirm Interp Factor V Activity POC ABG pH POC ABG pCO2 POC ABG pO2 Sodium 136 L Potassium Chloride Carbon Dioxide 18 L BUN 121 H Creatinine 2.8 H Glucose 214 H POC Glucose 239 H 181 H Lactic Acid Calcium Phosphorus Magnesium Direct Bilirubin ALT Alkaline Phosphatase Troponin T C-Reactive Protein Total Protein Albumin Triglycerides Cholesterol LDL Cholesterol Direct HDL Cholesterol Urine WBC (Auto) Urine Creatinine Urine Total Protein Vancomycin Trough Rheumatoid Factor Complement C4 Miscellaneous Test Crossmatch 09/14/16 09/14/16 09/15/16 18:12 23:37 05:00 WBC 26.1 H RBC 3.05 L Hgb 7.2 L Hct 22.9 L MCV 75 L MCH 24 L MCHC RDW 19.0 H Plt Count Lymph % (Auto) Cook % (Auto) Lymph # Cook # Seg Neutrophils % Seg Neuts % (Manual) Lymphocytes % (Manual) Monocytes % (Manual) Eosinophils % (Manual) Basophils % (Manual) Nucleated RBC % Seg Neutrophils # Seg Neutrophils # Man Lymphocytes # (Manual) Monocytes # (Manual) Eosinophils # (Manual) PT INR Fibrinogen dRVVT Confirm Interp Factor V Activity POC ABG pH POC ABG pCO2 POC ABG pO2 Sodium Potassium Chloride Carbon Dioxide BUN Creatinine Glucose POC Glucose 266 H 154 H Lactic Acid Calcium Phosphorus Magnesium Direct Bilirubin ALT Alkaline Phosphatase Troponin T C-Reactive Protein Total Protein Albumin Triglycerides Cholesterol LDL Cholesterol Direct HDL Cholesterol Urine WBC (Auto) Urine Creatinine Urine Total Protein Vancomycin Trough Rheumatoid Factor Complement C4 Miscellaneous Test Crossmatch 09/15/16 09/15/16 09/15/16 05:00 05:17 12:45 WBC RBC Hgb Hct MCV MCH MCHC RDW Plt Count Lymph % (Auto) Cook % (Auto) Lymph # Cook # Seg Neutrophils % Seg Neuts % (Manual) Lymphocytes % (Manual) Monocytes % (Manual) Eosinophils % (Manual) Basophils % (Manual) Nucleated RBC % Seg Neutrophils # Seg Neutrophils # Man Lymphocytes # (Manual) Monocytes # (Manual) Eosinophils # (Manual) PT INR Fibrinogen dRVVT Confirm Interp Factor V Activity POC ABG pH POC ABG pCO2 POC ABG pO2 Sodium Potassium 5.2 H Chloride Carbon Dioxide 18 L BUN 139 H Creatinine 3.7 H Glucose 227 H POC Glucose 226 H 244 H Lactic Acid Calcium 8.3 L Phosphorus Magnesium Direct Bilirubin ALT Alkaline Phosphatase Troponin T C-Reactive Protein Total Protein Albumin Triglycerides Cholesterol LDL Cholesterol Direct HDL Cholesterol Urine WBC (Auto) Urine Creatinine Urine Total Protein Vancomycin Trough Rheumatoid Factor Complement C4 Miscellaneous Test Crossmatch 09/15/16 09/15/16 09/15/16 14:32 17:33 23:35 WBC RBC Hgb Hct MCV MCH MCHC RDW Plt Count Lymph % (Auto) Cook % (Auto) Lymph # Cook # Seg Neutrophils % Seg Neuts % (Manual) Lymphocytes % (Manual) Monocytes % (Manual) Eosinophils % (Manual) Basophils % (Manual) Nucleated RBC % Seg Neutrophils # Seg Neutrophils # Man Lymphocytes # (Manual) Monocytes # (Manual) Eosinophils # (Manual) PT INR Fibrinogen dRVVT Confirm Interp Factor V Activity POC ABG pH POC ABG pCO2 27.7 L POC ABG pO2 120 H Sodium Potassium Chloride Carbon Dioxide BUN Creatinine Glucose POC Glucose 232 H 167 H Lactic Acid Calcium Phosphorus Magnesium Direct Bilirubin ALT Alkaline Phosphatase Troponin T C-Reactive Protein Total Protein Albumin Triglycerides Cholesterol LDL Cholesterol Direct HDL Cholesterol Urine WBC (Auto) Urine Creatinine Urine Total Protein Vancomycin Trough Rheumatoid Factor Complement C4 Miscellaneous Test Crossmatch 0709/16/16 09/16/16 03:58 10:27 10:27 WBC 19.0 H RBC 2.77 L Hgb 6.5 L Hct 20.9 L MCV 76 L MCH 23 L MCHC RDW 19.3 H Plt Count Lymph % (Auto) 11.0 L Cook % (Auto) Lymph # Cook # 1.1 H Seg Neutrophils % 82.5 H Seg Neuts % (Manual) Lymphocytes % (Manual) Monocytes % (Manual) Eosinophils % (Manual) Basophils % (Manual) Nucleated RBC % Seg Neutrophils # 15.7 H Seg Neutrophils # Man Lymphocytes # (Manual) Monocytes # (Manual) Eosinophils # (Manual) PT INR Fibrinogen dRVVT Confirm Interp Factor V Activity POC ABG pH POC ABG pCO2 POC ABG pO2 Sodium Potassium Chloride 109.3 H Carbon Dioxide 18 L BUN 139 H Creatinine 4.1 H Glucose 144 H POC Glucose 146 H Lactic Acid Calcium 8.1 L Phosphorus Magnesium Direct Bilirubin ALT Alkaline Phosphatase Troponin T C-Reactive Protein Total Protein Albumin Triglycerides Cholesterol LDL Cholesterol Direct HDL Cholesterol Urine WBC (Auto) Urine Creatinine Urine Total Protein Vancomycin Trough Rheumatoid Factor Complement C4 Miscellaneous Test Crossmatch 09/16/16 09/16/16 09/16/16 12:04 12:10 13:55 WBC RBC Hgb Hct MCV MCH MCHC RDW Plt Count Lymph % (Auto) Cook % (Auto) Lymph # Cook # Seg Neutrophils % Seg Neuts % (Manual) Lymphocytes % (Manual) Monocytes % (Manual) Eosinophils % (Manual) Basophils % (Manual) Nucleated RBC % Seg Neutrophils # Seg Neutrophils # Man Lymphocytes # (Manual) Monocytes # (Manual) Eosinophils # (Manual) PT INR Fibrinogen dRVVT Confirm Interp Factor V Activity POC ABG pH POC ABG pCO2 32.9 L POC ABG pO2 Sodium Potassium Chloride Carbon Dioxide BUN Creatinine Glucose POC Glucose 185 H Lactic Acid Calcium Phosphorus Magnesium Direct Bilirubin ALT Alkaline Phosphatase Troponin T C-Reactive Protein Total Protein Albumin Triglycerides Cholesterol LDL Cholesterol Direct HDL Cholesterol Urine WBC (Auto) Urine Creatinine Urine Total Protein Vancomycin Trough Rheumatoid Factor Complement C4 Miscellaneous Test Crossmatch See Detail 09/16/16 09/16/16 09/16/16 17:55 19:19 23:48 WBC RBC Hgb Hct MCV MCH MCHC RDW Plt Count Lymph % (Auto) Cook % (Auto) Lymph # Cook # Seg Neutrophils % Seg Neuts % (Manual) Lymphocytes % (Manual) Monocytes % (Manual) Eosinophils % (Manual) Basophils % (Manual) Nucleated RBC % Seg Neutrophils # Seg Neutrophils # Man Lymphocytes # (Manual) Monocytes # (Manual) Eosinophils # (Manual) PT INR Fibrinogen dRVVT Confirm Interp Factor V Activity POC ABG pH POC ABG pCO2 POC ABG pO2 Sodium Potassium Chloride Carbon Dioxide BUN Creatinine Glucose POC Glucose 222 H 107 H Lactic Acid Calcium Phosphorus Magnesium Direct Bilirubin ALT Alkaline Phosphatase Troponin T C-Reactive Protein Total Protein Albumin Triglycerides Cholesterol LDL Cholesterol Direct HDL Cholesterol Urine WBC (Auto) Urine Creatinine 47.4 H Urine Total Protein 16 H Vancomycin Trough Rheumatoid Factor Complement C4 Miscellaneous Test Crossmatch 09/17/16 09/17/16 09/17/16 03:45 03:45 04:55 WBC 19.6 H RBC 3.41 L Hgb 8.5 L Hct 26.7 L MCV 78 L MCH 25 L MCHC RDW 19.9 H Plt Count Lymph % (Auto) 9.3 L Cook % (Auto) Lymph # Cook # 1.2 H Seg Neutrophils % 83.9 H Seg Neuts % (Manual) Lymphocytes % (Manual) Monocytes % (Manual) Eosinophils % (Manual) Basophils % (Manual) Nucleated RBC % Seg Neutrophils # 16.4 H Seg Neutrophils # Man Lymphocytes # (Manual) Monocytes # (Manual) Eosinophils # (Manual) PT INR Fibrinogen dRVVT Confirm Interp Factor V Activity POC ABG pH POC ABG pCO2 POC ABG pO2 Sodium 146 H Potassium 5.1 H Chloride 110.9 H Carbon Dioxide 16 L BUN 146 H Creatinine 4.0 H Glucose 108 H POC Glucose 133 H Lactic Acid Calcium Phosphorus Magnesium 3.00 H Direct Bilirubin ALT Alkaline Phosphatase Troponin T C-Reactive Protein Total Protein Albumin Triglycerides Cholesterol LDL Cholesterol Direct HDL Cholesterol Urine WBC (Auto) Urine Creatinine Urine Total Protein Vancomycin Trough Rheumatoid Factor Complement C4 Miscellaneous Test Crossmatch 09/17/16 09/17/16 09/17/16 11:15 17:33 23:47 WBC RBC Hgb Hct MCV MCH MCHC RDW Plt Count Lymph % (Auto) Cook % (Auto) Lymph # Cook # Seg Neutrophils % Seg Neuts % (Manual) Lymphocytes % (Manual) Monocytes % (Manual) Eosinophils % (Manual) Basophils % (Manual) Nucleated RBC % Seg Neutrophils # Seg Neutrophils # Man Lymphocytes # (Manual) Monocytes # (Manual) Eosinophils # (Manual) PT INR Fibrinogen dRVVT Confirm Interp Factor V Activity POC ABG pH POC ABG pCO2 POC ABG pO2 Sodium Potassium Chloride Carbon Dioxide BUN Creatinine Glucose POC Glucose 176 H 246 H 148 H Lactic Acid Calcium Phosphorus Magnesium Direct Bilirubin ALT Alkaline Phosphatase Troponin T C-Reactive Protein Total Protein Albumin Triglycerides Cholesterol LDL Cholesterol Direct HDL Cholesterol Urine WBC (Auto) Urine Creatinine Urine Total Protein Vancomycin Trough Rheumatoid Factor Complement C4 Miscellaneous Test Crossmatch 09/18/16 09/18/16 09/18/16 05:33 08:31 08:31 WBC 18.0 H RBC 3.17 L Hgb 9.0 L Hct 25.7 L MCV MCH MCHC 35 H RDW 20.4 H Plt Count Lymph % (Auto) Cook % (Auto) Lymph # Cook # Seg Neutrophils % Seg Neuts % (Manual) Lymphocytes % (Manual) Monocytes % (Manual) Eosinophils % (Manual) Basophils % (Manual) Nucleated RBC % Seg Neutrophils # Seg Neutrophils # Man Lymphocytes # (Manual) Monocytes # (Manual) Eosinophils # (Manual) PT INR Fibrinogen dRVVT Confirm Interp Factor V Activity POC ABG pH POC ABG pCO2 POC ABG pO2 Sodium Potassium Chloride Carbon Dioxide 15 L BUN 124 H Creatinine 3.8 H Glucose POC Glucose 120 H Lactic Acid Calcium 8.1 L Phosphorus Magnesium Direct Bilirubin ALT Alkaline Phosphatase Troponin T C-Reactive Protein Total Protein Albumin Triglycerides Cholesterol LDL Cholesterol Direct HDL Cholesterol Urine WBC (Auto) Urine Creatinine Urine Total Protein Vancomycin Trough Rheumatoid Factor Complement C4 Miscellaneous Test Crossmatch 09/18/16 09/18/16 09/18/16 12:03 15:34 17:50 WBC RBC Hgb Hct MCV MCH MCHC RDW Plt Count Lymph % (Auto) Cook % (Auto) Lymph # Cook # Seg Neutrophils % Seg Neuts % (Manual) Lymphocytes % (Manual) Monocytes % (Manual) Eosinophils % (Manual) Basophils % (Manual) Nucleated RBC % Seg Neutrophils # Seg Neutrophils # Man Lymphocytes # (Manual) Monocytes # (Manual) Eosinophils # (Manual) PT INR Fibrinogen dRVVT Confirm Interp Factor V Activity POC ABG pH POC ABG pCO2 25.7 L POC ABG pO2 66 L Sodium Potassium Chloride Carbon Dioxide BUN Creatinine Glucose POC Glucose 156 H 220 H Lactic Acid Calcium Phosphorus Magnesium Direct Bilirubin ALT Alkaline Phosphatase Troponin T C-Reactive Protein Total Protein Albumin Triglycerides Cholesterol LDL Cholesterol Direct HDL Cholesterol Urine WBC (Auto) Urine Creatinine Urine Total Protein Vancomycin Trough Rheumatoid Factor Complement C4 Miscellaneous Test Crossmatch 09/19/16 09/19/16 09/19/16 06:21 09:50 09:50 WBC 17.1 H RBC 3.49 L Hgb 9.0 L Hct 28.1 L MCV MCH 26 L MCHC RDW 20.8 H Plt Count Lymph % (Auto) 11.5 L Cook % (Auto) 7.5 H Lymph # Cook # 1.3 H Seg Neutrophils % 79.8 H Seg Neuts % (Manual) Lymphocytes % (Manual) Monocytes % (Manual) Eosinophils % (Manual) Basophils % (Manual) Nucleated RBC % Seg Neutrophils # 13.7 H Seg Neutrophils # Man Lymphocytes # (Manual) Monocytes # (Manual) Eosinophils # (Manual) PT INR Fibrinogen dRVVT Confirm Interp Factor V Activity POC ABG pH POC ABG pCO2 POC ABG pO2 Sodium Potassium Chloride 108.6 H Carbon Dioxide 15 L BUN 125 H Creatinine 4.1 H Glucose 124 H POC Glucose 119 H Lactic Acid Calcium Phosphorus Magnesium Direct Bilirubin ALT Alkaline Phosphatase Troponin T C-Reactive Protein Total Protein Albumin Triglycerides Cholesterol LDL Cholesterol Direct HDL Cholesterol Urine WBC (Auto) Urine Creatinine Urine Total Protein Vancomycin Trough Rheumatoid Factor Complement C4 Miscellaneous Test Crossmatch 09/19/16 09/19/16 09/19/16 11:25 17:53 23:36 WBC RBC Hgb Hct MCV MCH MCHC RDW Plt Count Lymph % (Auto) Cook % (Auto) Lymph # Cook # Seg Neutrophils % Seg Neuts % (Manual) Lymphocytes % (Manual) Monocytes % (Manual) Eosinophils % (Manual) Basophils % (Manual) Nucleated RBC % Seg Neutrophils # Seg Neutrophils # Man Lymphocytes # (Manual) Monocytes # (Manual) Eosinophils # (Manual) PT INR Fibrinogen dRVVT Confirm Interp Factor V Activity POC ABG pH POC ABG pCO2 POC ABG pO2 Sodium Potassium Chloride Carbon Dioxide BUN Creatinine Glucose POC Glucose 160 H 245 H 121 H Lactic Acid Calcium Phosphorus Magnesium Direct Bilirubin ALT Alkaline Phosphatase Troponin T C-Reactive Protein Total Protein Albumin Triglycerides Cholesterol LDL Cholesterol Direct HDL Cholesterol Urine WBC (Auto) Urine Creatinine Urine Total Protein Vancomycin Trough Rheumatoid Factor Complement C4 Miscellaneous Test Crossmatch 09/20/16 09/20/16 09/20/16 04:10 04:10 04:10 WBC 17.0 H RBC 3.21 L Hgb 8.2 L Hct 25.5 L MCV MCH 26 L MCHC RDW 20.9 H Plt Count Lymph % (Auto) Cook % (Auto) Lymph # Cook # Seg Neutrophils % Seg Neuts % (Manual) Lymphocytes % (Manual) Monocytes % (Manual) Eosinophils % (Manual) Basophils % (Manual) Nucleated RBC % Seg Neutrophils # Seg Neutrophils # Man Lymphocytes # (Manual) Monocytes # (Manual) Eosinophils # (Manual) PT INR Fibrinogen dRVVT Confirm Interp Factor V Activity POC ABG pH POC ABG pCO2 POC ABG pO2 Sodium Potassium Chloride 111.0 H Carbon Dioxide 16 L BUN 129 H Creatinine 3.7 H Glucose 115 H POC Glucose Lactic Acid Calcium 8.2 L Phosphorus Magnesium Direct Bilirubin ALT Alkaline Phosphatase Troponin T C-Reactive Protein Total Protein Albumin Triglycerides 243 H Cholesterol LDL Cholesterol Direct HDL Cholesterol Urine WBC (Auto) Urine Creatinine Urine Total Protein Vancomycin Trough Rheumatoid Factor Complement C4 Miscellaneous Test Crossmatch 09/20/16 09/20/16 09/20/16 05:40 11:52 16:50 WBC RBC Hgb Hct MCV MCH MCHC RDW Plt Count Lymph % (Auto) Cook % (Auto) Lymph # Cook # Seg Neutrophils % Seg Neuts % (Manual) Lymphocytes % (Manual) Monocytes % (Manual) Eosinophils % (Manual) Basophils % (Manual) Nucleated RBC % Seg Neutrophils # Seg Neutrophils # Man Lymphocytes # (Manual) Monocytes # (Manual) Eosinophils # (Manual) PT INR Fibrinogen dRVVT Confirm Interp Factor V Activity POC ABG pH POC ABG pCO2 POC ABG pO2 Sodium Potassium Chloride Carbon Dioxide BUN Creatinine Glucose POC Glucose 131 H 183 H 236 H Lactic Acid Calcium Phosphorus Magnesium Direct Bilirubin ALT Alkaline Phosphatase Troponin T C-Reactive Protein Total Protein Albumin Triglycerides Cholesterol LDL Cholesterol Direct HDL Cholesterol Urine WBC (Auto) Urine Creatinine Urine Total Protein Vancomycin Trough Rheumatoid Factor Complement C4 Miscellaneous Test Crossmatch 09/20/16 09/21/16 09/21/16 23:51 03:30 04:44 WBC RBC Hgb Hct MCV MCH MCHC RDW Plt Count Lymph % (Auto) Cook % (Auto) Lymph # Cook # Seg Neutrophils % Seg Neuts % (Manual) Lymphocytes % (Manual) Monocytes % (Manual) Eosinophils % (Manual) Basophils % (Manual) Nucleated RBC % Seg Neutrophils # Seg Neutrophils # Man Lymphocytes # (Manual) Monocytes # (Manual) Eosinophils # (Manual) PT INR Fibrinogen dRVVT Confirm Interp Factor V Activity POC ABG pH POC ABG pCO2 POC ABG pO2 Sodium Potassium Chloride Carbon Dioxide BUN Creatinine Glucose POC Glucose 114 H 141 H Lactic Acid Calcium Phosphorus Magnesium 2.70 H Direct Bilirubin ALT Alkaline Phosphatase Troponin T C-Reactive Protein Total Protein Albumin Triglycerides Cholesterol LDL Cholesterol Direct HDL Cholesterol Urine WBC (Auto) Urine Creatinine Urine Total Protein Vancomycin Trough Rheumatoid Factor Complement C4 Miscellaneous Test Crossmatch 09/21/16 09/21/16 09/21/16 07:45 07:45 10:01 WBC 13.8 H RBC 2.94 L Hgb 7.5 L Hct 23.5 L MCV MCH 26 L MCHC RDW 21.2 H Plt Count Lymph % (Auto) 6.9 L Cook % (Auto) 9.4 H Lymph # 0.9 L Cook # 1.3 H Seg Neutrophils % 83.2 H Seg Neuts % (Manual) Lymphocytes % (Manual) Monocytes % (Manual) Eosinophils % (Manual) Basophils % (Manual) Nucleated RBC % Seg Neutrophils # 11.5 H Seg Neutrophils # Man Lymphocytes # (Manual) Monocytes # (Manual) Eosinophils # (Manual) PT INR Fibrinogen dRVVT Confirm Interp Factor V Activity POC ABG pH 7.308 L POC ABG pCO2 31.9 L POC ABG pO2 148 H Sodium 147 H Potassium Chloride 114.2 H Carbon Dioxide 15 L BUN 120 H Creatinine 3.9 H Glucose 156 H POC Glucose Lactic Acid Calcium 8.2 L Phosphorus Magnesium Direct Bilirubin ALT Alkaline Phosphatase Troponin T C-Reactive Protein Total Protein Albumin Triglycerides Cholesterol LDL Cholesterol Direct HDL Cholesterol Urine WBC (Auto) Urine Creatinine Urine Total Protein Vancomycin Trough Rheumatoid Factor Complement C4 Miscellaneous Test Crossmatch 09/21/16 09/21/16 09/21/16 12:00 12:03 13:00 WBC RBC Hgb Hct MCV MCH MCHC RDW Plt Count Lymph % (Auto) Cook % (Auto) Lymph # Cook # Seg Neutrophils % Seg Neuts % (Manual) Lymphocytes % (Manual) Monocytes % (Manual) Eosinophils % (Manual) Basophils % (Manual) Nucleated RBC % Seg Neutrophils # Seg Neutrophils # Man Lymphocytes # (Manual) Monocytes # (Manual) Eosinophils # (Manual) PT INR Fibrinogen dRVVT Confirm Interp Factor V Activity POC ABG pH POC ABG pCO2 POC ABG pO2 Sodium Potassium Chloride Carbon Dioxide BUN Creatinine Glucose POC Glucose 163 H Lactic Acid Calcium Phosphorus Magnesium Direct Bilirubin ALT Alkaline Phosphatase Troponin T C-Reactive Protein Total Protein Albumin Triglycerides Cholesterol LDL Cholesterol Direct HDL Cholesterol Urine WBC (Auto) Urine Creatinine 54.8 H Urine Total Protein Vancomycin Trough 2.3 L Rheumatoid Factor Complement C4 Miscellaneous Test Crossmatch 09/21/16 09/21/16 09/22/16 16:51 23:17 06:27 WBC RBC Hgb Hct MCV MCH MCHC RDW Plt Count Lymph % (Auto) Cook % (Auto) Lymph # Cook # Seg Neutrophils % Seg Neuts % (Manual) Lymphocytes % (Manual) Monocytes % (Manual) Eosinophils % (Manual) Basophils % (Manual) Nucleated RBC % Seg Neutrophils # Seg Neutrophils # Man Lymphocytes # (Manual) Monocytes # (Manual) Eosinophils # (Manual) PT INR Fibrinogen dRVVT Confirm Interp Factor V Activity POC ABG pH POC ABG pCO2 POC ABG pO2 Sodium Potassium Chloride Carbon Dioxide BUN Creatinine Glucose POC Glucose 206 H 114 H 115 H Lactic Acid Calcium Phosphorus Magnesium Direct Bilirubin ALT Alkaline Phosphatase Troponin T C-Reactive Protein Total Protein Albumin Triglycerides Cholesterol LDL Cholesterol Direct HDL Cholesterol Urine WBC (Auto) Urine Creatinine Urine Total Protein Vancomycin Trough Rheumatoid Factor Complement C4 Miscellaneous Test Crossmatch 09/22/16 09/22/16 09/22/16 07:50 07:50 12:00 WBC 17.8 H RBC 3.04 L Hgb 8.0 L Hct 24.7 L MCV MCH 26 L MCHC RDW 21.6 H Plt Count Lymph % (Auto) Cook % (Auto) Lymph # Cook # Seg Neutrophils % Seg Neuts % (Manual) Lymphocytes % (Manual) Monocytes % (Manual) Eosinophils % (Manual) Basophils % (Manual) Nucleated RBC % Seg Neutrophils # Seg Neutrophils # Man Lymphocytes # (Manual) Monocytes # (Manual) Eosinophils # (Manual) PT INR Fibrinogen dRVVT Confirm Interp Factor V Activity POC ABG pH POC ABG pCO2 POC ABG pO2 Sodium 150 H Potassium Chloride 118.2 H Carbon Dioxide 14 L BUN 111 H Creatinine 3.7 H Glucose 157 H POC Glucose 183 H Lactic Acid Calcium Phosphorus Magnesium Direct Bilirubin ALT Alkaline Phosphatase Troponin T C-Reactive Protein Total Protein Albumin Triglycerides Cholesterol LDL Cholesterol Direct HDL Cholesterol Urine WBC (Auto) Urine Creatinine Urine Total Protein Vancomycin Trough Rheumatoid Factor Complement C4 Miscellaneous Test Crossmatch 09/22/16 09/22/16 09/23/16 17:29 23:10 05:00 WBC 19.2 H RBC 3.13 L Hgb 8.0 L Hct 25.2 L MCV MCH 26 L MCHC RDW 22.1 H Plt Count Lymph % (Auto) Cook % (Auto) Lymph # Cook # Seg Neutrophils % Seg Neuts % (Manual) 92.0 H Lymphocytes % (Manual) 3.0 L Monocytes % (Manual) Eosinophils % (Manual) Basophils % (Manual) Nucleated RBC % Seg Neutrophils # Seg Neutrophils # Man 17.7 H Lymphocytes # (Manual) 0.6 L Monocytes # (Manual) Eosinophils # (Manual) PT INR Fibrinogen dRVVT Confirm Interp Factor V Activity POC ABG pH POC ABG pCO2 POC ABG pO2 Sodium Potassium Chloride Carbon Dioxide BUN Creatinine Glucose POC Glucose 197 H 169 H Lactic Acid Calcium Phosphorus Magnesium Direct Bilirubin ALT Alkaline Phosphatase Troponin T C-Reactive Protein Total Protein Albumin Triglycerides Cholesterol LDL Cholesterol Direct HDL Cholesterol Urine WBC (Auto) Urine Creatinine Urine Total Protein Vancomycin Trough Rheumatoid Factor Complement C4 Miscellaneous Test Crossmatch 09/23/16 09/23/16 09/23/16 05:00 05:00 05:10 WBC RBC Hgb Hct MCV MCH MCHC RDW Plt Count Lymph % (Auto) Cook % (Auto) Lymph # Cook # Seg Neutrophils % Seg Neuts % (Manual) Lymphocytes % (Manual) Monocytes % (Manual) Eosinophils % (Manual) Basophils % (Manual) Nucleated RBC % Seg Neutrophils # Seg Neutrophils # Man Lymphocytes # (Manual) Monocytes # (Manual) Eosinophils # (Manual) PT INR Fibrinogen dRVVT Confirm Interp Factor V Activity POC ABG pH POC ABG pCO2 POC ABG pO2 Sodium 147 H Potassium 3.2 L Chloride 115.7 H Carbon Dioxide 13 L BUN 111 H Creatinine 3.8 H Glucose 194 H POC Glucose 188 H Lactic Acid Calcium 7.3 L D Phosphorus Magnesium Direct Bilirubin ALT Alkaline Phosphatase Troponin T C-Reactive Protein 3.20 H Total Protein Albumin Triglycerides Cholesterol LDL Cholesterol Direct HDL Cholesterol Urine WBC (Auto) Urine Creatinine Urine Total Protein Vancomycin Trough Rheumatoid Factor Complement C4 Miscellaneous Test Crossmatch 09/23/16 09/23/16 09/23/16 11:37 12:29 18:01 WBC RBC Hgb Hct MCV MCH MCHC RDW Plt Count Lymph % (Auto) Cook % (Auto) Lymph # Cook # Seg Neutrophils % Seg Neuts % (Manual) Lymphocytes % (Manual) Monocytes % (Manual) Eosinophils % (Manual) Basophils % (Manual) Nucleated RBC % Seg Neutrophils # Seg Neutrophils # Man Lymphocytes # (Manual) Monocytes # (Manual) Eosinophils # (Manual) PT INR Fibrinogen dRVVT Confirm Interp Factor V Activity POC ABG pH POC ABG pCO2 18.9 L POC ABG pO2 143 H Sodium Potassium Chloride Carbon Dioxide BUN Creatinine Glucose POC Glucose 153 H 108 H Lactic Acid Calcium Phosphorus Magnesium Direct Bilirubin ALT Alkaline Phosphatase Troponin T C-Reactive Protein Total Protein Albumin Triglycerides Cholesterol LDL Cholesterol Direct HDL Cholesterol Urine WBC (Auto) Urine Creatinine Urine Total Protein Vancomycin Trough Rheumatoid Factor Complement C4 Miscellaneous Test Crossmatch 09/23/16 09/23/16 09/24/16 21:19 23:43 05:16 WBC RBC Hgb Hct MCV MCH MCHC RDW Plt Count Lymph % (Auto) Cook % (Auto) Lymph # Cook # Seg Neutrophils % Seg Neuts % (Manual) Lymphocytes % (Manual) Monocytes % (Manual) Eosinophils % (Manual) Basophils % (Manual) Nucleated RBC % Seg Neutrophils # Seg Neutrophils # Man Lymphocytes # (Manual) Monocytes # (Manual) Eosinophils # (Manual) PT INR Fibrinogen dRVVT Confirm Interp Factor V Activity POC ABG pH POC ABG pCO2 17.3 L POC ABG pO2 112 H Sodium Potassium Chloride Carbon Dioxide BUN Creatinine Glucose POC Glucose 143 H 164 H Lactic Acid Calcium Phosphorus Magnesium Direct Bilirubin ALT Alkaline Phosphatase Troponin T C-Reactive Protein Total Protein Albumin Triglycerides Cholesterol LDL Cholesterol Direct HDL Cholesterol Urine WBC (Auto) Urine Creatinine Urine Total Protein Vancomycin Trough Rheumatoid Factor Complement C4 Miscellaneous Test Crossmatch 09/24/16 09/24/16 09/24/16 05:21 11:58 17:06 WBC RBC Hgb Hct MCV MCH MCHC RDW Plt Count Lymph % (Auto) Cook % (Auto) Lymph # Cook # Seg Neutrophils % Seg Neuts % (Manual) Lymphocytes % (Manual) Monocytes % (Manual) Eosinophils % (Manual) Basophils % (Manual) Nucleated RBC % Seg Neutrophils # Seg Neutrophils # Man Lymphocytes # (Manual) Monocytes # (Manual) Eosinophils # (Manual) PT INR Fibrinogen dRVVT Confirm Interp Factor V Activity POC ABG pH POC ABG pCO2 POC ABG pO2 Sodium Potassium Chloride Carbon Dioxide 10 L BUN 103 H Creatinine 4.3 H Glucose 163 H POC Glucose 173 H 167 H Lactic Acid Calcium 6.5 L Phosphorus Magnesium Direct Bilirubin ALT Alkaline Phosphatase Troponin T C-Reactive Protein Total Protein Albumin Triglycerides Cholesterol LDL Cholesterol Direct HDL Cholesterol Urine WBC (Auto) Urine Creatinine Urine Total Protein Vancomycin Trough Rheumatoid Factor Complement C4 Miscellaneous Test Crossmatch 09/24/16 09/24/16 09/24/16 20:15 21:02 23:48 WBC RBC Hgb Hct MCV MCH MCHC RDW Plt Count Lymph % (Auto) Cook % (Auto) Lymph # Cook # Seg Neutrophils % Seg Neuts % (Manual) Lymphocytes % (Manual) Monocytes % (Manual) Eosinophils % (Manual) Basophils % (Manual) Nucleated RBC % Seg Neutrophils # Seg Neutrophils # Man Lymphocytes # (Manual) Monocytes # (Manual) Eosinophils # (Manual) PT INR Fibrinogen dRVVT Confirm Interp Factor V Activity POC ABG pH 7.288 L POC ABG pCO2 30.2 L 21.5 L POC ABG pO2 32 L 39 L Sodium Potassium Chloride Carbon Dioxide BUN Creatinine Glucose POC Glucose 109 H Lactic Acid Calcium Phosphorus Magnesium Direct Bilirubin ALT Alkaline Phosphatase Troponin T C-Reactive Protein Total Protein Albumin Triglycerides Cholesterol LDL Cholesterol Direct HDL Cholesterol Urine WBC (Auto) Urine Creatinine Urine Total Protein Vancomycin Trough Rheumatoid Factor Complement C4 Miscellaneous Test Crossmatch 09/25/16 09/25/16 09/25/16 04:20 04:20 04:20 WBC RBC 2.58 L Hgb 7.0 L Hct 21.0 L MCV MCH 27 L MCHC RDW 23.8 H Plt Count Lymph % (Auto) Cook % (Auto) Lymph # Cook # Seg Neutrophils % Seg Neuts % (Manual) Lymphocytes % (Manual) 12.0 L Monocytes % (Manual) Eosinophils % (Manual) 7.0 H Basophils % (Manual) 2.0 H Nucleated RBC % Seg Neutrophils # Seg Neutrophils # Man Lymphocytes # (Manual) 0.9 L Monocytes # (Manual) Eosinophils # (Manual) 0.5 H PT INR Fibrinogen dRVVT Confirm Interp Factor V Activity POC ABG pH POC ABG pCO2 POC ABG pO2 Sodium Potassium Chloride Carbon Dioxide 15 L BUN 72 H Creatinine 3.8 H Glucose POC Glucose Lactic Acid Calcium 6.0 L Phosphorus 4.60 H Magnesium 1.60 L Direct Bilirubin ALT Alkaline Phosphatase Troponin T C-Reactive Protein Total Protein Albumin Triglycerides Cholesterol LDL Cholesterol Direct HDL Cholesterol Urine WBC (Auto) Urine Creatinine Urine Total Protein Vancomycin Trough Rheumatoid Factor Complement C4 Miscellaneous Test Crossmatch 09/25/16 09/25/16 09/25/16 04:57 08:02 10:30 WBC RBC Hgb Hct MCV MCH MCHC RDW Plt Count Lymph % (Auto) Cook % (Auto) Lymph # Cook # Seg Neutrophils % Seg Neuts % (Manual) Lymphocytes % (Manual) Monocytes % (Manual) Eosinophils % (Manual) Basophils % (Manual) Nucleated RBC % Seg Neutrophils # Seg Neutrophils # Man Lymphocytes # (Manual) Monocytes # (Manual) Eosinophils # (Manual) PT INR Fibrinogen dRVVT Confirm Interp Factor V Activity POC ABG pH POC ABG pCO2 24.7 L POC ABG pO2 152 H Sodium Potassium Chloride Carbon Dioxide BUN Creatinine Glucose POC Glucose 113 H Lactic Acid Calcium Phosphorus Magnesium Direct Bilirubin ALT Alkaline Phosphatase Troponin T C-Reactive Protein Total Protein Albumin Triglycerides Cholesterol LDL Cholesterol Direct HDL Cholesterol Urine WBC (Auto) Urine Creatinine Urine Total Protein Vancomycin Trough Rheumatoid Factor Complement C4 Miscellaneous Test Crossmatch See Detail 09/25/16 09/25/16 09/25/16 12:05 17:44 23:47 WBC RBC Hgb Hct MCV MCH MCHC RDW Plt Count Lymph % (Auto) Cook % (Auto) Lymph # Cook # Seg Neutrophils % Seg Neuts % (Manual) Lymphocytes % (Manual) Monocytes % (Manual) Eosinophils % (Manual) Basophils % (Manual) Nucleated RBC % Seg Neutrophils # Seg Neutrophils # Man Lymphocytes # (Manual) Monocytes # (Manual) Eosinophils # (Manual) PT INR Fibrinogen dRVVT Confirm Interp Factor V Activity POC ABG pH POC ABG pCO2 POC ABG pO2 Sodium Potassium Chloride Carbon Dioxide BUN Creatinine Glucose POC Glucose 117 H 119 H 150 H Lactic Acid Calcium Phosphorus Magnesium Direct Bilirubin ALT Alkaline Phosphatase Troponin T C-Reactive Protein Total Protein Albumin Triglycerides Cholesterol LDL Cholesterol Direct HDL Cholesterol Urine WBC (Auto) Urine Creatinine Urine Total Protein Vancomycin Trough Rheumatoid Factor Complement C4 Miscellaneous Test Crossmatch 09/26/16 09/26/16 09/26/16 04:25 04:25 04:25 WBC RBC 2.65 L Hgb 7.4 L Hct 21.6 L MCV MCH MCHC RDW 22.5 H Plt Count Lymph % (Auto) Cook % (Auto) Lymph # Cook # Seg Neutrophils % Seg Neuts % (Manual) Lymphocytes % (Manual) 6.0 L Monocytes % (Manual) Eosinophils % (Manual) 11.0 H Basophils % (Manual) Nucleated RBC % Seg Neutrophils # Seg Neutrophils # Man Lymphocytes # (Manual) 0.4 L Monocytes # (Manual) Eosinophils # (Manual) 0.6 H PT INR Fibrinogen dRVVT Confirm Interp Factor V Activity POC ABG pH POC ABG pCO2 POC ABG pO2 Sodium Potassium Chloride 97.0 L Carbon Dioxide 19 L BUN 43 H Creatinine 2.6 H Glucose 130 H POC Glucose Lactic Acid 4.40 H* Calcium 6.7 L Phosphorus Magnesium Direct Bilirubin ALT Alkaline Phosphatase Troponin T C-Reactive Protein Total Protein Albumin Triglycerides Cholesterol LDL Cholesterol Direct HDL Cholesterol Urine WBC (Auto) Urine Creatinine Urine Total Protein Vancomycin Trough Rheumatoid Factor Complement C4 Miscellaneous Test Crossmatch 09/26/16 09/26/16 09/26/16 05:20 11:44 12:12 WBC RBC Hgb Hct MCV MCH MCHC RDW Plt Count Lymph % (Auto) Cook % (Auto) Lymph # Cook # Seg Neutrophils % Seg Neuts % (Manual) Lymphocytes % (Manual) Monocytes % (Manual) Eosinophils % (Manual) Basophils % (Manual) Nucleated RBC % Seg Neutrophils # Seg Neutrophils # Man Lymphocytes # (Manual) Monocytes # (Manual) Eosinophils # (Manual) PT INR Fibrinogen dRVVT Confirm Interp Factor V Activity POC ABG pH POC ABG pCO2 27.0 L POC ABG pO2 69 L Sodium Potassium Chloride Carbon Dioxide BUN Creatinine Glucose POC Glucose 121 H 128 H Lactic Acid Calcium Phosphorus Magnesium Direct Bilirubin ALT Alkaline Phosphatase Troponin T C-Reactive Protein Total Protein Albumin Triglycerides Cholesterol LDL Cholesterol Direct HDL Cholesterol Urine WBC (Auto) Urine Creatinine Urine Total Protein Vancomycin Trough Rheumatoid Factor Complement C4 Miscellaneous Test Crossmatch 09/26/16 09/26/16 09/27/16 18:31 23:40 08:20 WBC RBC Hgb Hct MCV MCH MCHC RDW Plt Count Lymph % (Auto) Cook % (Auto) Lymph # Cook # Seg Neutrophils % Seg Neuts % (Manual) Lymphocytes % (Manual) Monocytes % (Manual) Eosinophils % (Manual) Basophils % (Manual) Nucleated RBC % Seg Neutrophils # Seg Neutrophils # Man Lymphocytes # (Manual) Monocytes # (Manual) Eosinophils # (Manual) PT INR Fibrinogen dRVVT Confirm Interp Factor V Activity POC ABG pH POC ABG pCO2 POC ABG pO2 Sodium Potassium Chloride Carbon Dioxide BUN Creatinine Glucose POC Glucose 120 H 133 H Lactic Acid 4.10 H* Calcium Phosphorus Magnesium Direct Bilirubin ALT Alkaline Phosphatase Troponin T C-Reactive Protein Total Protein Albumin Triglycerides Cholesterol LDL Cholesterol Direct HDL Cholesterol Urine WBC (Auto) Urine Creatinine Urine Total Protein Vancomycin Trough Rheumatoid Factor Complement C4 Miscellaneous Test Crossmatch 09/27/16 09/27/16 09/27/16 11:23 15:00 18:15 WBC RBC Hgb Hct MCV MCH MCHC RDW Plt Count Lymph % (Auto) Cook % (Auto) Lymph # Cook # Seg Neutrophils % Seg Neuts % (Manual) Lymphocytes % (Manual) Monocytes % (Manual) Eosinophils % (Manual) Basophils % (Manual) Nucleated RBC % Seg Neutrophils # Seg Neutrophils # Man Lymphocytes # (Manual) Monocytes # (Manual) Eosinophils # (Manual) PT INR Fibrinogen dRVVT Confirm Interp Factor V Activity POC ABG pH 7.459 H POC ABG pCO2 27.1 L POC ABG pO2 140 H Sodium Potassium Chloride Carbon Dioxide BUN Creatinine Glucose POC Glucose 114 H 127 H Lactic Acid Calcium Phosphorus Magnesium Direct Bilirubin ALT Alkaline Phosphatase Troponin T C-Reactive Protein Total Protein Albumin Triglycerides Cholesterol LDL Cholesterol Direct HDL Cholesterol Urine WBC (Auto) Urine Creatinine Urine Total Protein Vancomycin Trough Rheumatoid Factor Complement C4 Miscellaneous Test Crossmatch 09/27/16 09/27/16 09/28/16 Unknown Unknown 03:45 WBC RBC 2.49 L Hgb 6.8 L Hct 20.7 L MCV MCH 27 L MCHC RDW 22.1 H Plt Count Lymph % (Auto) Cook % (Auto) Lymph # Cook # Seg Neutrophils % Seg Neuts % (Manual) 32.0 L Lymphocytes % (Manual) 12.0 L Monocytes % (Manual) 11.0 H Eosinophils % (Manual) 10.0 H Basophils % (Manual) Nucleated RBC % Seg Neutrophils # Seg Neutrophils # Man Lymphocytes # (Manual) 1.0 L Monocytes # (Manual) 0.9 H Eosinophils # (Manual) 0.8 H PT INR Fibrinogen dRVVT Confirm Interp Factor V Activity POC ABG pH POC ABG pCO2 POC ABG pO2 Sodium 135 L 135 L Potassium 3.5 L Chloride 93.6 L 94.4 L Carbon Dioxide 17 L 21 L BUN 45 H 28 H Creatinine 3.3 H 2.5 H Glucose 106 H POC Glucose Lactic Acid Calcium 7.3 L 7.1 L Phosphorus Magnesium Direct Bilirubin ALT Alkaline Phosphatase Troponin T C-Reactive Protein Total Protein Albumin Triglycerides Cholesterol LDL Cholesterol Direct HDL Cholesterol Urine WBC (Auto) Urine Creatinine Urine Total Protein Vancomycin Trough Rheumatoid Factor Complement C4 Miscellaneous Test Crossmatch 09/28/16 09/28/16 09/28/16 03:45 07:25 11:58 WBC 13.3 H RBC 3.01 L Hgb 8.4 L Hct 25.0 L MCV MCH MCHC RDW 20.5 H Plt Count 128 L Lymph % (Auto) Cook % (Auto) Lymph # Cook # Seg Neutrophils % Seg Neuts % (Manual) Lymphocytes % (Manual) 7.0 L Monocytes % (Manual) Eosinophils % (Manual) 6.0 H Basophils % (Manual) Nucleated RBC % Seg Neutrophils # Seg Neutrophils # Man Lymphocytes # (Manual) 0.9 L Monocytes # (Manual) Eosinophils # (Manual) 0.8 H PT INR Fibrinogen dRVVT Confirm Interp Factor V Activity POC ABG pH POC ABG pCO2 POC ABG pO2 Sodium Potassium Chloride Carbon Dioxide BUN Creatinine Glucose POC Glucose 121 H Lactic Acid 4.50 H* Calcium Phosphorus Magnesium Direct Bilirubin ALT Alkaline Phosphatase Troponin T C-Reactive Protein Total Protein Albumin Triglycerides Cholesterol LDL Cholesterol Direct HDL Cholesterol Urine WBC (Auto) Urine Creatinine Urine Total Protein Vancomycin Trough Rheumatoid Factor Complement C4 Miscellaneous Test Crossmatch 09/29/16 09/29/16 09/29/16 06:45 06:45 06:45 WBC 14.9 H RBC 2.74 L Hgb 7.6 L Hct 23.2 L MCV MCH MCHC RDW 20.5 H Plt Count 81 L Lymph % (Auto) Cook % (Auto) Lymph # Cook # Seg Neutrophils % Seg Neuts % (Manual) 81.0 H Lymphocytes % (Manual) 4.0 L Monocytes % (Manual) Eosinophils % (Manual) Basophils % (Manual) Nucleated RBC % Seg Neutrophils # Seg Neutrophils # Man 12.1 H Lymphocytes # (Manual) 0.6 L Monocytes # (Manual) Eosinophils # (Manual) PT INR Fibrinogen dRVVT Confirm Interp Factor V Activity POC ABG pH POC ABG pCO2 POC ABG pO2 Sodium 133 L Potassium 3.4 L Chloride 92.5 L Carbon Dioxide 21 L BUN 33 H Creatinine 3.0 H Glucose POC Glucose Lactic Acid Calcium 6.6 L Phosphorus Magnesium 1.40 L Direct Bilirubin 0.9 H ALT Alkaline Phosphatase Troponin T C-Reactive Protein Total Protein 4.3 L Albumin 1.3 L Triglycerides Cholesterol LDL Cholesterol Direct HDL Cholesterol Urine WBC (Auto) Urine Creatinine Urine Total Protein Vancomycin Trough Rheumatoid Factor Complement C4 Miscellaneous Test Crossmatch 09/29/16 09/29/16 09/30/16 17:52 20:12 00:07 WBC RBC Hgb Hct MCV MCH MCHC RDW Plt Count Lymph % (Auto) Cook % (Auto) Lymph # Cook # Seg Neutrophils % Seg Neuts % (Manual) Lymphocytes % (Manual) Monocytes % (Manual) Eosinophils % (Manual) Basophils % (Manual) Nucleated RBC % Seg Neutrophils # Seg Neutrophils # Man Lymphocytes # (Manual) Monocytes # (Manual) Eosinophils # (Manual) PT INR Fibrinogen dRVVT Confirm Interp Factor V Activity POC ABG pH POC ABG pCO2 POC ABG pO2 Sodium Potassium Chloride Carbon Dioxide BUN Creatinine Glucose POC Glucose 50 L 51 L Lactic Acid Calcium Phosphorus Magnesium Direct Bilirubin ALT Alkaline Phosphatase Troponin T 0.204 H* C-Reactive Protein Total Protein Albumin Triglycerides Cholesterol 31 L LDL Cholesterol Direct 4 L HDL Cholesterol 3 L Urine WBC (Auto) Urine Creatinine Urine Total Protein Vancomycin Trough Rheumatoid Factor Complement C4 Miscellaneous Test Crossmatch 09/30/16 09/30/16 09/30/16 01:30 05:15 06:10 WBC RBC Hgb Hct MCV MCH MCHC RDW Plt Count Lymph % (Auto) Cook % (Auto) Lymph # Cook # Seg Neutrophils % Seg Neuts % (Manual) Lymphocytes % (Manual) Monocytes % (Manual) Eosinophils % (Manual) Basophils % (Manual) Nucleated RBC % Seg Neutrophils # Seg Neutrophils # Man Lymphocytes # (Manual) Monocytes # (Manual) Eosinophils # (Manual) PT INR Fibrinogen dRVVT Confirm Interp Factor V Activity POC ABG pH POC ABG pCO2 POC ABG pO2 Sodium 133 L Potassium 3.2 L Chloride 93.2 L Carbon Dioxide 19 L BUN 36 H Creatinine 3.2 H Glucose 104 H POC Glucose 167 H 146 H Lactic Acid Calcium 6.4 L Phosphorus Magnesium 1.60 L Direct Bilirubin ALT Alkaline Phosphatase Troponin T C-Reactive Protein Total Protein Albumin Triglycerides Cholesterol LDL Cholesterol Direct HDL Cholesterol Urine WBC (Auto) Urine Creatinine Urine Total Protein Vancomycin Trough Rheumatoid Factor Complement C4 Miscellaneous Test Crossmatch 09/30/16 09/30/16 09/30/16 11:26 13:39 18:38 WBC RBC Hgb Hct MCV MCH MCHC RDW Plt Count Lymph % (Auto) Cook % (Auto) Lymph # Cook # Seg Neutrophils % Seg Neuts % (Manual) Lymphocytes % (Manual) Monocytes % (Manual) Eosinophils % (Manual) Basophils % (Manual) Nucleated RBC % Seg Neutrophils # Seg Neutrophils # Man Lymphocytes # (Manual) Monocytes # (Manual) Eosinophils # (Manual) PT INR Fibrinogen dRVVT Confirm Interp Factor V Activity POC ABG pH 7.479 H POC ABG pCO2 29.8 L POC ABG pO2 117 H Sodium Potassium Chloride Carbon Dioxide BUN Creatinine Glucose POC Glucose 140 H 122 H Lactic Acid Calcium Phosphorus Magnesium Direct Bilirubin ALT Alkaline Phosphatase Troponin T C-Reactive Protein Total Protein Albumin Triglycerides Cholesterol LDL Cholesterol Direct HDL Cholesterol Urine WBC (Auto) Urine Creatinine Urine Total Protein Vancomycin Trough Rheumatoid Factor Complement C4 Miscellaneous Test Crossmatch 10/01/16 10/01/16 10/01/16 06:00 06:00 12:37 WBC 12.6 H RBC 2.75 L Hgb 7.3 L Hct 23.3 L MCV MCH 27 L MCHC RDW 20.6 H Plt Count 72 L Lymph % (Auto) Cook % (Auto) Lymph # Cook # Seg Neutrophils % Seg Neuts % (Manual) 31.0 L Lymphocytes % (Manual) 8.0 L Monocytes % (Manual) Eosinophils % (Manual) Basophils % (Manual) Nucleated RBC % 3.0 H Seg Neutrophils # Seg Neutrophils # Man Lymphocytes # (Manual) 1.0 L Monocytes # (Manual) Eosinophils # (Manual) PT INR Fibrinogen dRVVT Confirm Interp Factor V Activity POC ABG pH POC ABG pCO2 POC ABG pO2 Sodium 127 L Potassium Chloride 86.8 L Carbon Dioxide 20 L BUN 42 H Creatinine 3.5 H Glucose POC Glucose 65 L Lactic Acid Calcium 7.0 L Phosphorus Magnesium Direct Bilirubin ALT Alkaline Phosphatase Troponin T C-Reactive Protein Total Protein Albumin Triglycerides Cholesterol LDL Cholesterol Direct HDL Cholesterol Urine WBC (Auto) Urine Creatinine Urine Total Protein Vancomycin Trough Rheumatoid Factor Complement C4 Miscellaneous Test Crossmatch 10/01/16 10/01/16 10/02/16 17:39 23:32 00:59 WBC RBC Hgb Hct MCV MCH MCHC RDW Plt Count Lymph % (Auto) Cook % (Auto) Lymph # Cook # Seg Neutrophils % Seg Neuts % (Manual) Lymphocytes % (Manual) Monocytes % (Manual) Eosinophils % (Manual) Basophils % (Manual) Nucleated RBC % Seg Neutrophils # Seg Neutrophils # Man Lymphocytes # (Manual) Monocytes # (Manual) Eosinophils # (Manual) PT INR Fibrinogen dRVVT Confirm Interp Factor V Activity POC ABG pH POC ABG pCO2 POC ABG pO2 Sodium Potassium Chloride Carbon Dioxide BUN Creatinine Glucose POC Glucose 107 H 52 L 145 H Lactic Acid Calcium Phosphorus Magnesium Direct Bilirubin ALT Alkaline Phosphatase Troponin T C-Reactive Protein Total Protein Albumin Triglycerides Cholesterol LDL Cholesterol Direct HDL Cholesterol Urine WBC (Auto) Urine Creatinine Urine Total Protein Vancomycin Trough Rheumatoid Factor Complement C4 Miscellaneous Test Crossmatch 10/02/16 10/02/16 10/02/16 10:30 10:50 10:50 WBC 14.7 H RBC 2.76 L Hgb 7.4 L Hct 23.6 L MCV MCH 27 L MCHC RDW 20.2 H Plt Count 79 L Lymph % (Auto) Cook % (Auto) Lymph # Cook # Seg Neutrophils % Seg Neuts % (Manual) 86.0 H Lymphocytes % (Manual) 6.0 L Monocytes % (Manual) Eosinophils % (Manual) Basophils % (Manual) Nucleated RBC % Seg Neutrophils # Seg Neutrophils # Man 12.6 H Lymphocytes # (Manual) 0.9 L Monocytes # (Manual) Eosinophils # (Manual) PT INR Fibrinogen dRVVT Confirm Interp Factor V Activity POC ABG pH 7.486 H POC ABG pCO2 30.1 L POC ABG pO2 108 H Sodium 131 L Potassium 3.4 L Chloride 89.9 L Carbon Dioxide BUN 26 H Creatinine 2.6 H Glucose POC Glucose Lactic Acid Calcium 7.0 L Phosphorus Magnesium Direct Bilirubin ALT Alkaline Phosphatase Troponin T C-Reactive Protein Total Protein Albumin Triglycerides Cholesterol LDL Cholesterol Direct HDL Cholesterol Urine WBC (Auto) Urine Creatinine Urine Total Protein Vancomycin Trough Rheumatoid Factor Complement C4 Miscellaneous Test Crossmatch 10/02/16 10/03/16 10/03/16 23:45 00:45 05:10 WBC 12.9 H RBC 2.77 L Hgb 7.6 L Hct 23.7 L MCV MCH 27 L MCHC RDW 19.7 H Plt Count 89 L Lymph % (Auto) Cook % (Auto) Lymph # Cook # Seg Neutrophils % Seg Neuts % (Manual) Lymphocytes % (Manual) 8.0 L Monocytes % (Manual) Eosinophils % (Manual) Basophils % (Manual) Nucleated RBC % Seg Neutrophils # 11.9 H Seg Neutrophils # Man Lymphocytes # (Manual) 1.0 L Monocytes # (Manual) Eosinophils # (Manual) PT INR Fibrinogen dRVVT Confirm Interp Factor V Activity POC ABG pH POC ABG pCO2 POC ABG pO2 Sodium Potassium Chloride Carbon Dioxide BUN Creatinine Glucose POC Glucose 55 L 199 H Lactic Acid Calcium Phosphorus Magnesium Direct Bilirubin ALT Alkaline Phosphatase Troponin T C-Reactive Protein Total Protein Albumin Triglycerides Cholesterol LDL Cholesterol Direct HDL Cholesterol Urine WBC (Auto) Urine Creatinine Urine Total Protein Vancomycin Trough Rheumatoid Factor Complement C4 Miscellaneous Test Crossmatch 10/03/16 10/03/16 10/03/16 05:10 12:14 13:18 WBC RBC Hgb Hct MCV MCH MCHC RDW Plt Count Lymph % (Auto) Cook % (Auto) Lymph # Cook # Seg Neutrophils % Seg Neuts % (Manual) Lymphocytes % (Manual) Monocytes % (Manual) Eosinophils % (Manual) Basophils % (Manual) Nucleated RBC % Seg Neutrophils # Seg Neutrophils # Man Lymphocytes # (Manual) Monocytes # (Manual) Eosinophils # (Manual) PT INR Fibrinogen dRVVT Confirm Interp Factor V Activity POC ABG pH POC ABG pCO2 POC ABG pO2 Sodium 129 L Potassium 3.3 L Chloride 88.8 L Carbon Dioxide 20 L BUN 29 H Creatinine 2.8 H Glucose POC Glucose 68 L 127 H Lactic Acid Calcium 7.2 L Phosphorus Magnesium Direct Bilirubin ALT Alkaline Phosphatase Troponin T C-Reactive Protein Total Protein Albumin Triglycerides Cholesterol LDL Cholesterol Direct HDL Cholesterol Urine WBC (Auto) Urine Creatinine Urine Total Protein Vancomycin Trough Rheumatoid Factor Complement C4 Miscellaneous Test Crossmatch 10/03/16 10/03/16 10/03/16 14:42 18:21 19:09 WBC RBC Hgb Hct MCV MCH MCHC RDW Plt Count Lymph % (Auto) Cook % (Auto) Lymph # Cook # Seg Neutrophils % Seg Neuts % (Manual) Lymphocytes % (Manual) Monocytes % (Manual) Eosinophils % (Manual) Basophils % (Manual) Nucleated RBC % Seg Neutrophils # Seg Neutrophils # Man Lymphocytes # (Manual) Monocytes # (Manual) Eosinophils # (Manual) PT INR Fibrinogen dRVVT Confirm Interp Factor V Activity POC ABG pH 7.499 H POC ABG pCO2 28.4 L POC ABG pO2 44 L Sodium Potassium Chloride Carbon Dioxide BUN Creatinine Glucose POC Glucose 64 L 205 H Lactic Acid Calcium Phosphorus Magnesium Direct Bilirubin ALT Alkaline Phosphatase Troponin T C-Reactive Protein Total Protein Albumin Triglycerides Cholesterol LDL Cholesterol Direct HDL Cholesterol Urine WBC (Auto) Urine Creatinine Urine Total Protein Vancomycin Trough Rheumatoid Factor Complement C4 Miscellaneous Test Crossmatch 10/03/16 10/04/16 10/04/16 23:33 04:18 06:30 WBC RBC 2.54 L Hgb 7.1 L Hct 21.7 L MCV MCH MCHC RDW 19.5 H Plt Count 76 L Lymph % (Auto) Cook % (Auto) Lymph # Cook # Seg Neutrophils % Seg Neuts % (Manual) 88.0 H Lymphocytes % (Manual) 6.0 L Monocytes % (Manual) Eosinophils % (Manual) Basophils % (Manual) Nucleated RBC % Seg Neutrophils # Seg Neutrophils # Man 8.8 H Lymphocytes # (Manual) 0.6 L Monocytes # (Manual) Eosinophils # (Manual) PT INR Fibrinogen dRVVT Confirm Interp Factor V Activity POC ABG pH 7.461 H POC ABG pCO2 33.6 L POC ABG pO2 211 H Sodium Potassium Chloride Carbon Dioxide BUN Creatinine Glucose POC Glucose 136 H Lactic Acid Calcium Phosphorus Magnesium Direct Bilirubin ALT Alkaline Phosphatase Troponin T C-Reactive Protein Total Protein Albumin Triglycerides Cholesterol LDL Cholesterol Direct HDL Cholesterol Urine WBC (Auto) Urine Creatinine Urine Total Protein Vancomycin Trough Rheumatoid Factor Complement C4 Miscellaneous Test Crossmatch 10/04/16 10/04/16 10/04/16 06:30 11:45 17:54 WBC RBC Hgb Hct MCV MCH MCHC RDW Plt Count Lymph % (Auto) Cook % (Auto) Lymph # Cook # Seg Neutrophils % Seg Neuts % (Manual) Lymphocytes % (Manual) Monocytes % (Manual) Eosinophils % (Manual) Basophils % (Manual) Nucleated RBC % Seg Neutrophils # Seg Neutrophils # Man Lymphocytes # (Manual) Monocytes # (Manual) Eosinophils # (Manual) PT INR Fibrinogen dRVVT Confirm Interp Factor V Activity POC ABG pH POC ABG pCO2 POC ABG pO2 Sodium 128 L Potassium Chloride 87.4 L Carbon Dioxide 20 L BUN 34 H Creatinine 2.9 H Glucose 127 H POC Glucose 158 H 160 H Lactic Acid Calcium 7.4 L Phosphorus Magnesium Direct Bilirubin ALT Alkaline Phosphatase Troponin T C-Reactive Protein Total Protein Albumin Triglycerides Cholesterol LDL Cholesterol Direct HDL Cholesterol Urine WBC (Auto) Urine Creatinine Urine Total Protein Vancomycin Trough Rheumatoid Factor Complement C4 Miscellaneous Test Crossmatch 10/04/16 10/05/16 10/05/16 23:25 04:30 05:00 WBC RBC 2.64 L Hgb 7.5 L Hct 22.6 L MCV MCH MCHC RDW 19.3 H Plt Count 80 L Lymph % (Auto) Cook % (Auto) Lymph # Cook # Seg Neutrophils % Seg Neuts % (Manual) Lymphocytes % (Manual) 12.0 L Monocytes % (Manual) Eosinophils % (Manual) Basophils % (Manual) Nucleated RBC % Seg Neutrophils # Seg Neutrophils # Man Lymphocytes # (Manual) Monocytes # (Manual) Eosinophils # (Manual) PT INR Fibrinogen dRVVT Confirm Interp Factor V Activity POC ABG pH 7.475 H POC ABG pCO2 33.3 L POC ABG pO2 140 H Sodium Potassium Chloride Carbon Dioxide BUN Creatinine Glucose POC Glucose 141 H Lactic Acid Calcium Phosphorus Magnesium Direct Bilirubin ALT Alkaline Phosphatase Troponin T C-Reactive Protein Total Protein Albumin Triglycerides Cholesterol LDL Cholesterol Direct HDL Cholesterol Urine WBC (Auto) Urine Creatinine Urine Total Protein Vancomycin Trough Rheumatoid Factor Complement C4 Miscellaneous Test Crossmatch 10/05/16 10/05/16 10/05/16 05:00 05:09 12:58 WBC RBC Hgb Hct MCV MCH MCHC RDW Plt Count Lymph % (Auto) Cook % (Auto) Lymph # Cook # Seg Neutrophils % Seg Neuts % (Manual) Lymphocytes % (Manual) Monocytes % (Manual) Eosinophils % (Manual) Basophils % (Manual) Nucleated RBC % Seg Neutrophils # Seg Neutrophils # Man Lymphocytes # (Manual) Monocytes # (Manual) Eosinophils # (Manual) PT INR Fibrinogen dRVVT Confirm Interp Factor V Activity POC ABG pH POC ABG pCO2 POC ABG pO2 Sodium 131 L Potassium Chloride 94.0 L Carbon Dioxide 20 L BUN 22 H Creatinine 2.0 H Glucose 123 H POC Glucose 166 H 179 H Lactic Acid Calcium 7.7 L Phosphorus 2.20 L D Magnesium Direct Bilirubin ALT Alkaline Phosphatase Troponin T C-Reactive Protein Total Protein Albumin Triglycerides Cholesterol LDL Cholesterol Direct HDL Cholesterol Urine WBC (Auto) Urine Creatinine Urine Total Protein Vancomycin Trough Rheumatoid Factor Complement C4 Miscellaneous Test Crossmatch 10/05/16 10/05/16 10/05/16 15:50 18:53 23:12 WBC RBC Hgb Hct MCV MCH MCHC RDW Plt Count Lymph % (Auto) Cook % (Auto) Lymph # Cook # Seg Neutrophils % Seg Neuts % (Manual) Lymphocytes % (Manual) Monocytes % (Manual) Eosinophils % (Manual) Basophils % (Manual) Nucleated RBC % Seg Neutrophils # Seg Neutrophils # Man Lymphocytes # (Manual) Monocytes # (Manual) Eosinophils # (Manual) PT INR Fibrinogen dRVVT Confirm Interp Factor V Activity POC ABG pH POC ABG pCO2 POC ABG pO2 Sodium Potassium Chloride Carbon Dioxide BUN Creatinine Glucose POC Glucose 150 H 164 H Lactic Acid Calcium Phosphorus Magnesium Direct Bilirubin ALT Alkaline Phosphatase Troponin T C-Reactive Protein Total Protein Albumin Triglycerides Cholesterol LDL Cholesterol Direct HDL Cholesterol Urine WBC (Auto) Urine Creatinine Urine Total Protein Vancomycin Trough Rheumatoid Factor Complement C4 Miscellaneous Test Crossmatch See Detail 10/06/16 10/06/16 10/06/16 03:50 03:50 04:53 WBC RBC 3.00 L Hgb 8.6 L Hct 25.8 L MCV MCH MCHC RDW 17.9 H Plt Count 65 L Lymph % (Auto) Cook % (Auto) Lymph # Cook # Seg Neutrophils % Seg Neuts % (Manual) 30.0 L Lymphocytes % (Manual) 5.0 L Monocytes % (Manual) Eosinophils % (Manual) Basophils % (Manual) Nucleated RBC % Seg Neutrophils # Seg Neutrophils # Man Lymphocytes # (Manual) 0.4 L Monocytes # (Manual) Eosinophils # (Manual) PT INR Fibrinogen dRVVT Confirm Interp Factor V Activity POC ABG pH 7.310 L POC ABG pCO2 49.0 H POC ABG pO2 Sodium 133 L Potassium Chloride 95.9 L Carbon Dioxide BUN 26 H Creatinine 2.0 H Glucose 116 H POC Glucose Lactic Acid Calcium 7.8 L Phosphorus Magnesium Direct Bilirubin ALT Alkaline Phosphatase Troponin T C-Reactive Protein Total Protein Albumin Triglycerides Cholesterol LDL Cholesterol Direct HDL Cholesterol Urine WBC (Auto) Urine Creatinine Urine Total Protein Vancomycin Trough Rheumatoid Factor Complement C4 Miscellaneous Test Crossmatch 10/06/16 10/06/16 10/06/16 05:23 11:52 18:34 WBC RBC Hgb Hct MCV MCH MCHC RDW Plt Count Lymph % (Auto) Cook % (Auto) Lymph # Cook # Seg Neutrophils % Seg Neuts % (Manual) Lymphocytes % (Manual) Monocytes % (Manual) Eosinophils % (Manual) Basophils % (Manual) Nucleated RBC % Seg Neutrophils # Seg Neutrophils # Man Lymphocytes # (Manual) Monocytes # (Manual) Eosinophils # (Manual) PT INR Fibrinogen dRVVT Confirm Interp Factor V Activity POC ABG pH POC ABG pCO2 POC ABG pO2 Sodium Potassium Chloride Carbon Dioxide BUN Creatinine Glucose POC Glucose 126 H 116 H 129 H Lactic Acid Calcium Phosphorus Magnesium Direct Bilirubin ALT Alkaline Phosphatase Troponin T C-Reactive Protein Total Protein Albumin Triglycerides Cholesterol LDL Cholesterol Direct HDL Cholesterol Urine WBC (Auto) Urine Creatinine Urine Total Protein Vancomycin Trough Rheumatoid Factor Complement C4 Miscellaneous Test Crossmatch 10/07/16 10/07/1617 03:45 05:00 10:00 WBC 17.0 H RBC 2.68 L Hgb 7.3 L Hct 25.3 L MCV MCH 27 L MCHC 29 L RDW 19.6 H Plt Count 74 L Lymph % (Auto) Cook % (Auto) Lymph # Cook # Seg Neutrophils % Seg Neuts % (Manual) Lymphocytes % (Manual) 12.0 L Monocytes % (Manual) Eosinophils % (Manual) Basophils % (Manual) Nucleated RBC % 4.0 H Seg Neutrophils # Seg Neutrophils # Man 10.7 H Lymphocytes # (Manual) Monocytes # (Manual) Eosinophils # (Manual) PT INR Fibrinogen dRVVT Confirm Interp Factor V Activity POC ABG pH POC ABG pCO2 POC ABG pO2 Sodium 130 L Potassium 3.2 L Chloride 93.9 L Carbon Dioxide 20 L BUN 44 H Creatinine 2.7 H Glucose 129 H POC Glucose Lactic Acid Calcium 7.4 L Phosphorus Magnesium Direct Bilirubin ALT 6 L Alkaline Phosphatase 195 H Troponin T C-Reactive Protein Total Protein 4.9 L Albumin 1.0 L Triglycerides Cholesterol LDL Cholesterol Direct HDL Cholesterol Urine WBC (Auto) Urine Creatinine Urine Total Protein Vancomycin Trough Rheumatoid Factor Complement C4 Miscellaneous Test Flexitest 1 H Crossmatch 10/07/16 10/07/16 10/07/16 10:00 11:24 18:10 WBC RBC Hgb Hct MCV MCH MCHC RDW Plt Count Lymph % (Auto) Cook % (Auto) Lymph # Cook # Seg Neutrophils % Seg Neuts % (Manual) Lymphocytes % (Manual) Monocytes % (Manual) Eosinophils % (Manual) Basophils % (Manual) Nucleated RBC % Seg Neutrophils # Seg Neutrophils # Man Lymphocytes # (Manual) Monocytes # (Manual) Eosinophils # (Manual) PT INR Fibrinogen dRVVT Confirm Interp Factor V Activity POC ABG pH POC ABG pCO2 POC ABG pO2 Sodium Potassium Chloride Carbon Dioxide BUN Creatinine Glucose POC Glucose 116 H 130 H Lactic Acid Calcium Phosphorus Magnesium Direct Bilirubin ALT Alkaline Phosphatase Troponin T C-Reactive Protein 19.40 H Total Protein Albumin Triglycerides Cholesterol LDL Cholesterol Direct HDL Cholesterol Urine WBC (Auto) Urine Creatinine Urine Total Protein Vancomycin Trough Rheumatoid Factor Complement C4 Miscellaneous Test Crossmatch 10/07/16 10/08/16 10/08/16 18:30 00:00 04:00 WBC RBC Hgb Hct MCV MCH MCHC RDW Plt Count Lymph % (Auto) Cook % (Auto) Lymph # Cook # Seg Neutrophils % Seg Neuts % (Manual) Lymphocytes % (Manual) Monocytes % (Manual) Eosinophils % (Manual) Basophils % (Manual) Nucleated RBC % Seg Neutrophils # Seg Neutrophils # Man Lymphocytes # (Manual) Monocytes # (Manual) Eosinophils # (Manual) PT INR Fibrinogen dRVVT Confirm Interp Factor V Activity POC ABG pH POC ABG pCO2 POC ABG pO2 Sodium 132 L Potassium 3.3 L Chloride 93.6 L Carbon Dioxide 17 L BUN 59 H Creatinine 2.7 H Glucose 121 H POC Glucose 122 H Lactic Acid Calcium 7.6 L Phosphorus Magnesium Direct Bilirubin ALT Alkaline Phosphatase Troponin T C-Reactive Protein Total Protein Albumin Triglycerides Cholesterol LDL Cholesterol Direct HDL Cholesterol Urine WBC (Auto) > 182.0 H Urine Creatinine Urine Total Protein Vancomycin Trough Rheumatoid Factor Complement C4 Miscellaneous Test Crossmatch 10/08/16 10/08/16 10/08/16 04:30 05:30 11:51 WBC RBC 5.15 H Hgb 14.4 H D Hct 44.5 H D MCV MCH MCHC RDW 19.5 H Plt Count 56 L Lymph % (Auto) Cook % (Auto) Lymph # Cook # Seg Neutrophils % Seg Neuts % (Manual) 24.0 L Lymphocytes % (Manual) 8.0 L Monocytes % (Manual) Eosinophils % (Manual) Basophils % (Manual) Nucleated RBC % 9.0 H Seg Neutrophils # Seg Neutrophils # Man Lymphocytes # (Manual) 0.7 L Monocytes # (Manual) Eosinophils # (Manual) PT INR Fibrinogen dRVVT Confirm Interp Factor V Activity POC ABG pH POC ABG pCO2 POC ABG pO2 Sodium Potassium Chloride Carbon Dioxide BUN Creatinine Glucose POC Glucose 125 H 150 H Lactic Acid Calcium Phosphorus Magnesium Direct Bilirubin ALT Alkaline Phosphatase Troponin T C-Reactive Protein Total Protein Albumin Triglycerides Cholesterol LDL Cholesterol Direct HDL Cholesterol Urine WBC (Auto) Urine Creatinine Urine Total Protein Vancomycin Trough Rheumatoid Factor Complement C4 Miscellaneous Test Crossmatch 10/08/16 10/08/16 10/08/16 12:49 17:07 19:30 WBC RBC Hgb 7.1 L D Hct 22.4 L D MCV MCH MCHC RDW Plt Count Lymph % (Auto) Cook % (Auto) Lymph # Cook # Seg Neutrophils % Seg Neuts % (Manual) Lymphocytes % (Manual) Monocytes % (Manual) Eosinophils % (Manual) Basophils % (Manual) Nucleated RBC % Seg Neutrophils # Seg Neutrophils # Man Lymphocytes # (Manual) Monocytes # (Manual) Eosinophils # (Manual) PT INR Fibrinogen dRVVT Confirm Interp Factor V Activity POC ABG pH POC ABG pCO2 28.2 L POC ABG pO2 111 H Sodium Potassium Chloride Carbon Dioxide BUN Creatinine Glucose POC Glucose 145 H Lactic Acid Calcium Phosphorus Magnesium Direct Bilirubin ALT Alkaline Phosphatase Troponin T C-Reactive Protein Total Protein Albumin Triglycerides Cholesterol LDL Cholesterol Direct HDL Cholesterol Urine WBC (Auto) Urine Creatinine Urine Total Protein Vancomycin Trough Rheumatoid Factor Complement C4 Miscellaneous Test Crossmatch 10/08/16 10/09/16 10/09/16 19:30 03:45 03:45 WBC 12.6 H RBC 2.36 L Hgb 6.7 L Hct 21.1 L MCV MCH MCHC RDW 19.5 H Plt Count 75 L Lymph % (Auto) Cook % (Auto) Lymph # Cook # Seg Neutrophils % Seg Neuts % (Manual) Lymphocytes % (Manual) Monocytes % (Manual) 10.0 H Eosinophils % (Manual) Basophils % (Manual) Nucleated RBC % 3.0 H Seg Neutrophils # Seg Neutrophils # Man Lymphocytes # (Manual) Monocytes # (Manual) 1.3 H Eosinophils # (Manual) PT 18.0 H INR 1.41 H Fibrinogen dRVVT Confirm Interp Factor V Activity POC ABG pH POC ABG pCO2 POC ABG pO2 Sodium 135 L Potassium Chloride Carbon Dioxide 17 L BUN 81 H Creatinine 3.2 H Glucose 109 H POC Glucose Lactic Acid Calcium 7.4 L Phosphorus 4.60 H D Magnesium Direct Bilirubin ALT Alkaline Phosphatase Troponin T C-Reactive Protein Total Protein Albumin Triglycerides Cholesterol LDL Cholesterol Direct HDL Cholesterol Urine WBC (Auto) Urine Creatinine Urine Total Protein Vancomycin Trough Rheumatoid Factor Complement C4 Miscellaneous Test Crossmatch 10/09/16 10/09/16 10/09/16 03:45 05:14 07:20 WBC RBC Hgb Hct MCV MCH MCHC RDW Plt Count Lymph % (Auto) Cook % (Auto) Lymph # Cook # Seg Neutrophils % Seg Neuts % (Manual) Lymphocytes % (Manual) Monocytes % (Manual) Eosinophils % (Manual) Basophils % (Manual) Nucleated RBC % Seg Neutrophils # Seg Neutrophils # Man Lymphocytes # (Manual) Monocytes # (Manual) Eosinophils # (Manual) PT 19.0 H INR 1.51 H Fibrinogen dRVVT Confirm Interp Factor V Activity POC ABG pH POC ABG pCO2 POC ABG pO2 Sodium Potassium Chloride Carbon Dioxide BUN Creatinine Glucose POC Glucose 151 H Lactic Acid Calcium Phosphorus Magnesium Direct Bilirubin ALT Alkaline Phosphatase Troponin T C-Reactive Protein Total Protein Albumin Triglycerides Cholesterol LDL Cholesterol Direct HDL Cholesterol Urine WBC (Auto) Urine Creatinine Urine Total Protein Vancomycin Trough Rheumatoid Factor Complement C4 Miscellaneous Test Crossmatch See Detail 10/09/16 10/09/16 10/09/16 11:46 16:20 16:43 WBC RBC Hgb 7.2 L Hct 22.2 L MCV MCH MCHC RDW Plt Count Lymph % (Auto) Cook % (Auto) Lymph # Cook # Seg Neutrophils % Seg Neuts % (Manual) Lymphocytes % (Manual) Monocytes % (Manual) Eosinophils % (Manual) Basophils % (Manual) Nucleated RBC % Seg Neutrophils # Seg Neutrophils # Man Lymphocytes # (Manual) Monocytes # (Manual) Eosinophils # (Manual) PT INR Fibrinogen dRVVT Confirm Interp Factor V Activity POC ABG pH POC ABG pCO2 POC ABG pO2 Sodium Potassium Chloride Carbon Dioxide BUN Creatinine Glucose POC Glucose 133 H 141 H Lactic Acid Calcium Phosphorus Magnesium Direct Bilirubin ALT Alkaline Phosphatase Troponin T C-Reactive Protein Total Protein Albumin Triglycerides Cholesterol LDL Cholesterol Direct HDL Cholesterol Urine WBC (Auto) Urine Creatinine Urine Total Protein Vancomycin Trough Rheumatoid Factor Complement C4 Miscellaneous Test Crossmatch 10/10/16 10/10/16 10/10/16 05:00 05:00 11:19 WBC 18.5 H RBC 2.19 L Hgb 6.4 L Hct 19.6 L* MCV MCH MCHC RDW 19.3 H Plt Count 93 L Lymph % (Auto) Cook % (Auto) Lymph # Cook # Seg Neutrophils % Seg Neuts % (Manual) Lymphocytes % (Manual) 10.0 L Monocytes % (Manual) Eosinophils % (Manual) Basophils % (Manual) Nucleated RBC % 4.0 H Seg Neutrophils # Seg Neutrophils # Man 11.3 H Lymphocytes # (Manual) Monocytes # (Manual) Eosinophils # (Manual) PT INR Fibrinogen dRVVT Confirm Interp Factor V Activity POC ABG pH POC ABG pCO2 POC ABG pO2 Sodium Potassium 5.7 H D Chloride Carbon Dioxide 16 L BUN 94 H Creatinine 3.1 H Glucose 131 H POC Glucose 153 H Lactic Acid Calcium 8.2 L Phosphorus 5.10 H Magnesium 2.40 H Direct Bilirubin 0.3 H ALT < 5 L Alkaline Phosphatase 319 H Troponin T C-Reactive Protein Total Protein 5.1 L Albumin 1.0 L Triglycerides Cholesterol LDL Cholesterol Direct HDL Cholesterol Urine WBC (Auto) Urine Creatinine Urine Total Protein Vancomycin Trough Rheumatoid Factor Complement C4 Miscellaneous Test Crossmatch 10/10/16 10/10/16 10/11/16 17:50 23:30 04:15 WBC RBC Hgb Hct MCV MCH MCHC RDW Plt Count Lymph % (Auto) Cook % (Auto) Lymph # Cook # Seg Neutrophils % Seg Neuts % (Manual) Lymphocytes % (Manual) Monocytes % (Manual) Eosinophils % (Manual) Basophils % (Manual) Nucleated RBC % Seg Neutrophils # Seg Neutrophils # Man Lymphocytes # (Manual) Monocytes # (Manual) Eosinophils # (Manual) PT INR Fibrinogen dRVVT Confirm Interp Factor V Activity POC ABG pH POC ABG pCO2 POC ABG pO2 Sodium Potassium Chloride 96.4 L Carbon Dioxide 21 L BUN 57 H Creatinine 2.1 H Glucose 151 H POC Glucose 146 H 141 H Lactic Acid Calcium 8.3 L Phosphorus Magnesium Direct Bilirubin ALT Alkaline Phosphatase Troponin T C-Reactive Protein Total Protein Albumin Triglycerides Cholesterol LDL Cholesterol Direct HDL Cholesterol Urine WBC (Auto) Urine Creatinine Urine Total Protein Vancomycin Trough Rheumatoid Factor Complement C4 Miscellaneous Test Crossmatch 10/11/16 10/11/16 10/11/16 04:15 04:15 05:30 WBC 28.3 H RBC 3.12 L Hgb 9.3 L Hct 28.7 L D MCV MCH MCHC RDW 17.7 H Plt Count 128 L Lymph % (Auto) Cook % (Auto) Lymph # Cook # Seg Neutrophils % Seg Neuts % (Manual) Lymphocytes % (Manual) Monocytes % (Manual) Eosinophils % (Manual) Basophils % (Manual) Nucleated RBC % Seg Neutrophils # Seg Neutrophils # Man Lymphocytes # (Manual) Monocytes # (Manual) Eosinophils # (Manual) PT INR Fibrinogen dRVVT Confirm Interp Factor V Activity POC ABG pH POC ABG pCO2 POC ABG pO2 Sodium Potassium Chloride Carbon Dioxide BUN Creatinine Glucose POC Glucose 167 H Lactic Acid Calcium Phosphorus Magnesium Direct Bilirubin ALT Alkaline Phosphatase Troponin T C-Reactive Protein 15.80 H Total Protein Albumin Triglycerides Cholesterol LDL Cholesterol Direct HDL Cholesterol Urine WBC (Auto) Urine Creatinine Urine Total Protein Vancomycin Trough Rheumatoid Factor Complement C4 Miscellaneous Test Crossmatch 10/11/16 10/11/16 10/11/16 11:40 15:49 23:57 WBC RBC Hgb Hct MCV MCH MCHC RDW Plt Count Lymph % (Auto) Cook % (Auto) Lymph # Cook # Seg Neutrophils % Seg Neuts % (Manual) Lymphocytes % (Manual) Monocytes % (Manual) Eosinophils % (Manual) Basophils % (Manual) Nucleated RBC % Seg Neutrophils # Seg Neutrophils # Man Lymphocytes # (Manual) Monocytes # (Manual) Eosinophils # (Manual) PT INR Fibrinogen dRVVT Confirm Interp Factor V Activity POC ABG pH POC ABG pCO2 POC ABG pO2 Sodium Potassium Chloride Carbon Dioxide BUN Creatinine Glucose POC Glucose 139 H 168 H 161 H Lactic Acid Calcium Phosphorus Magnesium Direct Bilirubin ALT Alkaline Phosphatase Troponin T C-Reactive Protein Total Protein Albumin Triglycerides Cholesterol LDL Cholesterol Direct HDL Cholesterol Urine WBC (Auto) Urine Creatinine Urine Total Protein Vancomycin Trough Rheumatoid Factor Complement C4 Miscellaneous Test Crossmatch 10/12/16 10/12/16 10/12/16 04:40 04:40 05:44 WBC 22.5 H RBC 2.88 L Hgb 8.8 L Hct 26.8 L MCV MCH MCHC RDW 17.8 H Plt Count Lymph % (Auto) Cook % (Auto) Lymph # Cook # Seg Neutrophils % Seg Neuts % (Manual) Lymphocytes % (Manual) Monocytes % (Manual) Eosinophils % (Manual) Basophils % (Manual) Nucleated RBC % Seg Neutrophils # Seg Neutrophils # Man Lymphocytes # (Manual) Monocytes # (Manual) Eosinophils # (Manual) PT INR Fibrinogen dRVVT Confirm Interp Factor V Activity POC ABG pH POC ABG pCO2 POC ABG pO2 Sodium 134 L Potassium Chloride 93.0 L Carbon Dioxide BUN 74 H Creatinine 2.5 H Glucose 137 H POC Glucose 158 H Lactic Acid Calcium 8.2 L Phosphorus Magnesium Direct Bilirubin ALT Alkaline Phosphatase Troponin T C-Reactive Protein Total Protein Albumin Triglycerides Cholesterol LDL Cholesterol Direct HDL Cholesterol Urine WBC (Auto) Urine Creatinine Urine Total Protein Vancomycin Trough Rheumatoid Factor Complement C4 Miscellaneous Test Crossmatch 10/12/16 10/12/16 10/12/16 12:27 18:18 23:46 WBC RBC Hgb Hct MCV MCH MCHC RDW Plt Count Lymph % (Auto) Cook % (Auto) Lymph # Cook # Seg Neutrophils % Seg Neuts % (Manual) Lymphocytes % (Manual) Monocytes % (Manual) Eosinophils % (Manual) Basophils % (Manual) Nucleated RBC % Seg Neutrophils # Seg Neutrophils # Man Lymphocytes # (Manual) Monocytes # (Manual) Eosinophils # (Manual) PT INR Fibrinogen dRVVT Confirm Interp Factor V Activity POC ABG pH POC ABG pCO2 POC ABG pO2 Sodium Potassium Chloride Carbon Dioxide BUN Creatinine Glucose POC Glucose 153 H 140 H 150 H Lactic Acid Calcium Phosphorus Magnesium Direct Bilirubin ALT Alkaline Phosphatase Troponin T C-Reactive Protein Total Protein Albumin Triglycerides Cholesterol LDL Cholesterol Direct HDL Cholesterol Urine WBC (Auto) Urine Creatinine Urine Total Protein Vancomycin Trough Rheumatoid Factor Complement C4 Miscellaneous Test Crossmatch 10/13/16 10/13/16 10/13/16 06:22 Unknown Unknown WBC 23.4 H RBC 2.83 L Hgb 8.7 L Hct 26.1 L MCV MCH MCHC RDW 18.1 H Plt Count Lymph % (Auto) Cook % (Auto) Lymph # Cook # Seg Neutrophils % Seg Neuts % (Manual) Lymphocytes % (Manual) Monocytes % (Manual) Eosinophils % (Manual) Basophils % (Manual) Nucleated RBC % Seg Neutrophils # Seg Neutrophils # Man Lymphocytes # (Manual) Monocytes # (Manual) Eosinophils # (Manual) PT INR Fibrinogen dRVVT Confirm Interp Factor V Activity POC ABG pH POC ABG pCO2 POC ABG pO2 Sodium Potassium Chloride 95.8 L Carbon Dioxide BUN 82 H Creatinine 2.6 H Glucose 152 H POC Glucose 165 H Lactic Acid Calcium Phosphorus Magnesium Direct Bilirubin ALT Alkaline Phosphatase Troponin T C-Reactive Protein Total Protein Albumin Triglycerides Cholesterol LDL Cholesterol Direct HDL Cholesterol Urine WBC (Auto) Urine Creatinine Urine Total Protein Vancomycin Trough Rheumatoid Factor Complement C4 Miscellaneous Test Crossmatch Allied health notes reviewed: RT
--- NOTE | 2016-10-13 12:06 | Progress Note ---
Assessment and Plan Acute hypoxic respiratory failure on mechanical ventilation s/p trach and PEG Acute left MCA CVA echocardiogram demonstrates at least moderate LVH but a normal LV systolic function, EF 50-55%. no thrombus visualized on transthoracic echocardiogram. Dislodged PEG tube s/p repair of gastric perforation with wedge gastrectomy Hypertension was hypotensive requiring pressor support Acute on chronic renal failure requiring dialysis Fungemia Diabetes mellitus Anemia requiring transfusion of PRBCs Thrombocytopenia Hyponatremia Paroxysmal Afib s/p failed cardioversion on 09/25 on IV lopressor for suppression considered not a candidate for anticoagulation due to severe anemia and thrombocytopenia. Conservative cardiac management. Subjective Date of service: 10/13/16 Principal diagnosis: hematochezia Interval history: No interval changes overnight. Objective Vital Signs Temp Pulse Pulse Resp BP Pulse Ox Pulse Ox 10/13/16 11:59 119 H 152/104 100 10/13/16 11:45 119 H 152/104 10/13/16 11:30 117 H 147/99 10/13/16 11:15 116 H 147/96 10/13/16 11:00 99.0 F 116 H 28 H 111/61 100 10/13/16 09:03 112 H 108/81 10/13/16 08:00 99 F 110 H 22 106/62 100 10/13/16 07:42 115 H 140/83 100 10/13/16 07:00 115 H 22 159/87 100 10/13/16 06:00 113 H 24 150/76 100 10/13/16 05:00 111 H 24 138/75 100 10/13/16 04:00 100.1 F H 119 H 27 H 194/111 100 10/13/16 03:53 111 H 172/91 99 10/13/16 03:47 108 H 28 H 100 10/13/16 03:29 119 H 153/90 10/13/16 03:00 120 H 27 H 162/90 99 10/13/16 02:00 121 H 30 H 145/93 98 10/13/16 01:00 115 H 28 H 159/96 99 10/13/16 00:52 118 H 187/110 10/13/16 00:00 100.4 F H 118 H 114 H 24 185/113 99 10/12/16 23:00 117 H 26 H 187/111 100 10/12/16 22:33 115 H 25 H 196/116 100 10/12/16 22:00 114 H 23 183/105 100 10/12/16 21:00 111 H 23 173/103 100 10/12/16 20:04 99 H 216/105 100 10/12/16 20:01 114 H 24 216/105 100 10/12/16 20:00 100.8 F H 116 H 22 100 10/12/16 19:31 135 H 189/115 10/12/16 19:00 117 H 26 H 199/110 100 10/12/16 18:00 104 H 22 135/81 100 10/12/16 17:00 100 H 22 139/85 100 10/12/16 16:50 104 H 135/81 100 10/12/16 16:00 100.4 F H 98 H 100 H 20 124/72 100 10/12/16 15:00 94 H 21 139/90 100 10/12/16 14:44 104 H 142/81 10/12/16 14:00 101 H 21 150/87 100 10/12/16 13:00 99 H 20 143/84 100 - Physical Examination General: Other (ventilated via trach) Cardiac: Positive: Reg Rate and Rhythm Abdomen: Positive: Soft, Active Bowel Sounds Extremities: Absent: edema - Labs and Meds CBC 10/13/16 Range/Units Unknown WBC 23.4 H (4.5-11.0) K/mm3 RBC 2.83 L (3.65-5.03) M/mm3 Hgb 8.7 L (10.1-14.3) gm/dl Hct 26.1 L (30.3-42.9) % Plt Count 200 (140-440) K/mm3 Comprehensive Metabolic Panel 10/13/16 Range/Units Unknown Sodium 139 (137-145) mmol/L Potassium 3.8 (3.6-5.0) mmol/L Chloride 95.8 L (98-107) mmol/L Carbon Dioxide 23 (22-30) mmol/L BUN 82 H (7-17) mg/dL Creatinine 2.6 H (0.7-1.2) mg/dL Glucose 152 H (65-100) mg/dL Calcium 8.7 (8.4-10.2) mg/dL - Imaging and Cardiology EKG: image reviewed - Allied health notes Allied health notes reviewed: RT
[2016-10-13] MEDS ORDERED: NACL 0.9% 1000 ML 2,000 ML ONE (13:59)
[2016-10-13] MEDS: HEPARIN IV PRN (14:05)
[2016-10-13] MEDS ORDERED: PROCRIT IV ONE (15:00)
--- NOTE | 2016-10-13 16:17 | Consultation ---
History of Present Illness - Reason for Consult Consult date: 10/13/16 neurology - History of Present Illness I have gone over all the recent notes by the consultants to understand the impact of the strokes on recoverability of the multiplee issue- notes are reviewed and scope of the overwhelming problems is appreciated- lung/renal/ bleeding/ infection/cardiac... in my review the stroke are embolic and she is not candidate for anticoagulation etc. overall situation not predictive of good outcome as many factors are unsolvable Past History Past Medical History: diabetes, hypertension, renal failure, other (Medical noncompliance) Past Surgical History: cholecystectomy (per chart review) Social history: other (per chart review, family denied any smoking or alcohol history on admission). denies: smoking, alcohol abuse, prescription drug abuse , IV drug use Family history: hypertension (per chart review) Medications and Allergies Allergies Allergy/AdvReac Type Severity Reaction Status Date / Time No Known Allergies Allergy Verified 04/14/15 06:02 Home Medications Medication Instructions Recorded Confirmed Last Taken Type Acetaminophen [Tylenol Arthritis] 650 mg PO QID PRN #30 tablet.er 02/15/1609/12 Unknown Rx Albuterol Sulfate [Proventil HFA] 6.7 gm INHALATION Q4-6H 02/15/16 09/12/16 History Insulin Glargine [Lantus VIAL] 30 units SQ QHS 02/15/16 09/12/16 02/15/16 History Clonidine HCl [Catapres] 0.3 mg PO TID #90 tablet 06/15/16 09/12/16 Unknown Rx Lisinopril [Zestril] 40 mg PO BID #60 tablet 06/15/16 09/12/16 Unknown Rx Polyethylene Glycol 3350 [Miralax 17 gm PO QDAY PRN #10 packet 06/15/16 Unknown Rx 3350] Albuterol 2 inhalation INHALATION Q4HR PRN 09/12/16 09/12/16 Unknown History AtorvaSTATin [Lipitor] 20 mg PO QHS 09/12/16 09/12/16 Unknown History Flovent 110 MCG/PUFF HFA 1 inhalation INHALATION QHS 09/12/16 09/12/16 Unknown History Furosemide [Lasix] 20 mg PO QDAY 09/12/16 09/12/16 Unknown History HumaLOG VIAL 45 units SUB-Q TID 09/12/16 09/12/16 Unknown History Insulin Aspart [NovoLOG Flexpen] 30 units SUB-Q TID MDD 30 Units 09/12/16 Unknown History Labetalol HCl 300 mg PO BID 09/12/16 09/12/16 Unknown History Spironolactone [Aldactone] 25 mg PO QDAY 09/12/16 09/12/16 Unknown History hydrALAZINE [Apresoline] 25 mg PO BID 09/12/16 09/12/16 Unknown History Active Meds: Active Medications Epoetin Mariusz (Epogen) 20,000 unit IV KERWIN PRN PRN Reason: hemodialysis Last Admin: 10/10/16 17:02 Dose: 20,000 unit Heparin Sodium (Porcine) (Heparin) 5,000 unit IV KERWIN PRN PRN Reason: hemodialysis Last Admin: 10/13/16 14:05 Dose: 5,000 unit Hydralazine HCl (Apresoline) 5 mg IV Q6HR PRN PRN Reason: Hypertension Last Admin: 10/13/16 10:04 Dose: 5 mg Micafungin Sodium 100 mg/ (Sodium Chloride) 100 mls @ 100 mls/hr IV Q24H AGUSTIN PRN Reason: Protocol Stop: 10/14/16 23:59 Last Admin: 10/12/16 20:40 Dose: 100 mls/hr Sodium Chloride (Nacl 0.9%) 100 mls @ 999 mls/hr IV KERWIN PRN PRN Reason: Hypotension Fentanyl Citrate (Fentanyl Drip Premix) 2,000 mcg in 100 mls @ 4.48 mls/hr IV TITR AGUSTIN; 1 MCG/KG/HR PRN Reason: Protocol Last Admin: 10/12/16 18:36 Dose: 1 mcg/kg/hr, 4.48 mls/hr Meropenem 1,000 mg/ Sodium (Chloride) 100 mls @ 100 mls/hr IV Q24HR AGUSTIN Last Admin: 10/13/16 09:51 Dose: 100 mls/hr Amino Acids/Electrolytes/Dextrose (Tpn Adult) 2,016 mls @ 84 mls/hr IV DAILY@ 2000 AGUSTIN PRN Reason: Protocol Stop: 10/13/16 19:59 Last Admin: 10/12/16 20:40 Dose: 84 mls/hr Amino Acids/Electrolytes/Dextrose (Tpn Adult) 2,016 mls @ 84 mls/hr IV DAILY@ 1999 [facility] PRN Reason: Protocol Stop: 10/14/16 19:59 Insulin Human Regular (Novolin R) 0 units SUB-Q Q6HR [facility] PRN Reason: Protocol Last Admin: 10/13/16 06:28 Dose: 2 units Metoprolol Tartrate (Lopressor) 2.5 mg IV Q4H PRN PRN Reason: HR >130 Last Admin: 10/12/16 19:31 Dose: 2.5 mg Metoprolol Tartrate (Lopressor) 5 mg IV Q6H [facility] Last Admin: 10/13/16 09:03 Dose: 5 mg Multi-Ingred Cream/Lotion/Oil/Oint (Artificial Tears Ophth Oint) 1 applic OU Q4HR PRN PRN Reason: Dry Eye(s) Ondansetron HCl (Zofran) 4 mg IV Q8H PRN PRN Reason: N/V unrelieved by Shelly Last Admin: 10/08/16 06:53 Dose: 4 mg Pantoprazole Sodium (Protonix) 40 mg IV DAILY [facility] Last Admin: 10/13/16 09:04 Dose: 40 mg Exam - Constitutional Vitals: Temp Pulse Resp BP Pulse Ox 98.3 F 109 H 26 H 152/104 99 10/13/16 14:15 10/13/16 15:26 10/13/16 14:15 10/13/16 15:26 10/13/16 15:33 Results - Labs CBC & Chem 7: 10/13/16 Unknown 10/13/16 Unknown Labs: Abnormal lab results 10/12/16 10/12/16 10/13/16 Range/Units 18:18 23:46 06:22 WBC (4.5-11.0) K/mm3 RBC (3.65-5.03) M/mm3 Hgb (10.1-14.3) gm/dl Hct (30.3-42.9) % RDW (13.2-15.2) % Chloride (98-107) mmol/L BUN (7-17) mg/dL Creatinine (0.7-1.2) mg/dL Glucose (65-100) mg/dL POC Glucose 140 H 150 H 165 H (70-105) 10/13/16 10/13/16 Range/Units Unknown Unknown WBC 23.4 H (4.5-11.0) K/mm3 RBC 2.83 L (3.65-5.03) M/mm3 Hgb 8.7 L (10.1-14.3) gm/dl Hct 26.1 L (30.3-42.9) % RDW 18.1 H (13.2-15.2) % Chloride 95.8 L (98-107) mmol/L BUN 82 H (7-17) mg/dL Creatinine 2.6 H (0.7-1.2) mg/dL Glucose 152 H (65-100) mg/dL POC Glucose (70-105)
--- NOTE | 2016-10-13 16:58 | Progress Note ---
Assessment and Plan - Patient Problems (1) Dislodged gastrostomy tube Current Visit: Yes Status: Acute Plan to address problem: drainage remains purulent but wbc improving and pt is afebrile. Continue abx per ID and continue drainage. Monitor character. Subjective Date of service: 10/13/16 Patient Reports: Positive: afebrile, other (no acute events) Objective Vital Signs - 12hr 10/13/16 10/13/16 10/13/16 05:00 06:00 07:00 Temperature Pulse Rate 111 H 113 H 115 H Respiratory 24 24 22 Rate Blood Pressure 138/75 150/76 159/87 O2 Sat by Pulse 100 100 100 Oximetry O2 Sat by Pulse Oximetry [ Anterior Bilateral Throughout] O2 Sat by Pulse Oximetry [ Assessment] 10/13/16 10/13/16 10/13/16 07:42 08:00 09:00 Temperature 99 F Pulse Rate 115 H 110 H 113 H Respiratory 22 23 Rate Blood Pressure 140/83 106/62 103/71 O2 Sat by Pulse 100 100 100 Oximetry O2 Sat by Pulse Oximetry [ Anterior Bilateral Throughout] O2 Sat by Pulse Oximetry [ Assessment] 10/13/16 10/13/16 10/13/16 09:03 10:00 10:01 Temperature Pulse Rate 112 H 110 H 117 H Respiratory 27 H Rate Blood Pressure 108/81 104/52 O2 Sat by Pulse 100 Oximetry O2 Sat by Pulse Oximetry [ Anterior Bilateral Throughout] O2 Sat by Pulse Oximetry [ Assessment] 10/13/16 10/13/16 10/13/16 11:00 11:01 11:15 Temperature 99.0 F Pulse Rate 116 H 116 H 116 H Respiratory 28 H 20 Rate Blood Pressure 111/61 91/51 147/96 O2 Sat by Pulse 99 Oximetry O2 Sat by Pulse 100 Oximetry [ Anterior Bilateral Throughout] O2 Sat by Pulse Oximetry [ Assessment] 10/13/16 10/13/16 10/13/16 11:30 11:45 11:59 Temperature Pulse Rate 117 H 119 H 119 H Respiratory Rate Blood Pressure 147/99 152/104 152/104 O2 Sat by Pulse 100 Oximetry O2 Sat by Pulse Oximetry [ Anterior Bilateral Throughout] O2 Sat by Pulse Oximetry [ Assessment] 10/13/16 10/13/16 10/13/16 12:00 12:15 12:30 Temperature 98.3 F Pulse Rate 115 H 123 H 120 H Respiratory 30 H Rate Blood Pressure 156/94 164/99 177/109 O2 Sat by Pulse 100 Oximetry O2 Sat by Pulse Oximetry [ Anterior Bilateral Throughout] O2 Sat by Pulse Oximetry [ Assessment] 10/13/16 10/13/16 10/13/16 12:45 13:00 13:15 Temperature Pulse Rate 122 H 125 H 127 H Respiratory 28 H Rate Blood Pressure 165/101 171/106 166/109 O2 Sat by Pulse 100 Oximetry O2 Sat by Pulse Oximetry [ Anterior Bilateral Throughout] O2 Sat by Pulse Oximetry [ Assessment] 10/13/16 10/13/16 10/13/16 13:30 13:45 14:00 Temperature Pulse Rate 121 H 116 H 132 H Respiratory 30 H Rate Blood Pressure 144/107 135/99 164/107 O2 Sat by Pulse 100 Oximetry O2 Sat by Pulse Oximetry [ Anterior Bilateral Throughout] O2 Sat by Pulse Oximetry [ Assessment] 10/13/16 10/13/16 10/13/16 14:15 14:16 15:00 Temperature 98.3 F Pulse Rate 132 H 128 H 117 H Respiratory 26 H 25 H Rate Blood Pressure 155/102 155/102 163/101 O2 Sat by Pulse 99 Oximetry O2 Sat by Pulse 100 Oximetry [ Anterior Bilateral Throughout] O2 Sat by Pulse Oximetry [ Assessment] 10/13/16 10/13/16 10/13/16 15:11 15:26 15:33 Temperature Pulse Rate 125 H 109 H Respiratory Rate Blood Pressure 223/104 152/104 O2 Sat by Pulse 100 100 Oximetry O2 Sat by Pulse Oximetry [ Anterior Bilateral Throughout] O2 Sat by Pulse 99 Oximetry [ Assessment] 10/13/16 16:00 Temperature 98.6 F Pulse Rate 105 H Respiratory 21 Rate Blood Pressure 99/60 O2 Sat by Pulse 100 Oximetry O2 Sat by Pulse Oximetry [ Anterior Bilateral Throughout] O2 Sat by Pulse Oximetry [ Assessment] - General physical appearance chronically ill - Respiratory normal respiratory effort, other (on 30%) - Abdomen soft, not tender, surgical scars (clean and dry), other (purulent drainage from JUAN) - Psychiatric other (eyes open) - Labs 10/13/16 Unknown 10/13/16 Unknown Diabetes panel 10/13/16 Range/Units Unknown Sodium 139 (137-145) mmol/L Potassium 3.8 (3.6-5.0) mmol/L Chloride 95.8 L (98-107) mmol/L Carbon Dioxide 23 (22-30) mmol/L BUN 82 H (7-17) mg/dL Creatinine 2.6 H (0.7-1.2) mg/dL Glucose 152 H (65-100) mg/dL Calcium 8.7 (8.4-10.2) mg/dL Calcium panel 10/13/16 Range/Units Unknown Calcium 8.7 (8.4-10.2) mg/dL Phosphorus 2.80 (2.5-4.5) mg/dL Pituitary panel 10/13/16 Range/Units Unknown Sodium 139 (137-145) mmol/L Potassium 3.8 (3.6-5.0) mmol/L Chloride 95.8 L (98-107) mmol/L Carbon Dioxide 23 (22-30) mmol/L BUN 82 H (7-17) mg/dL Creatinine 2.6 H (0.7-1.2) mg/dL Glucose 152 H (65-100) mg/dL Calcium 8.7 (8.4-10.2) mg/dL Adrenal panel 10/13/16 Range/Units Unknown Sodium 139 (137-145) mmol/L Potassium 3.8 (3.6-5.0) mmol/L Chloride 95.8 L (98-107) mmol/L Carbon Dioxide 23 (22-30) mmol/L BUN 82 H (7-17) mg/dL Creatinine 2.6 H (0.7-1.2) mg/dL Glucose 152 H (65-100) mg/dL Calcium 8.7 (8.4-10.2) mg/dL
[2016-10-13] MEDS: LOPRESSOR IV PRN (18:25)
--- NOTE | 2016-10-13 19:06 | Gastroenterology Progress Note ---
Assessment and Plan - Patient Problems (1) Heme + stool Current Visit: Yes Status: Acute Plan to address problem: - Patient continues to have heme (+) stool, but no gross bleeding. Suspect the anemia is multifactorial, and there is no urgent need for endoscopy. - OK to continue TPN and PPI therapy. - Advance diet as per surgery recs. - Will sign off for now; please call with questions. Subjective Date of service: 10/13/16 Principal diagnosis: Heme (+) stool Interval history: No significant change in patient status, and another BM today showed no blood in the stool. She is tolerating TPN well and there is no blood in JUAN drain. Objective - Constitutional Vitals: Temp Pulse Resp BP Pulse Ox 98.6 F 132 H 21 99/60 100 10/13/16 16:00 10/13/16 18:25 10/13/16 16:00 10/13/16 16:00 10/13/16 16:00 General appearance: no acute distress, other (On vent, poorly responsive) - Respiratory Respiratory effort: normal Respiratory: bilateral: CTA (On Vent) - Cardiovascular Rhythm: regular Heart Sounds: Present: S1 & S2 - Gastrointestinal General gastrointestinal: Present: soft, non-tender, non-distended, other (JUAN drain present, and normal BS; wounds healing) Rectal Exam: stool brown - Labs CBC & Chem 7: 10/13/16 Unknown 10/13/16 Unknown Labs: Laboratory Results - last 24 hr 10/12/16 10/13/16 10/13/16 23:46 06:22 Unknown WBC RBC Hgb Hct MCV MCH MCHC RDW Plt Count Sodium 139 Potassium 3.8 Chloride 95.8 L Carbon Dioxide 23 Anion Gap 24 BUN 82 H Creatinine 2.6 H Estimated GFR 24 BUN/Creatinine Ratio 31.53 Glucose 152 H POC Glucose 150 H 165 H Calcium 8.7 Phosphorus 2.80 Magnesium 1.80 10/13/16 Unknown WBC 23.4 H RBC 2.83 L Hgb 8.7 L Hct 26.1 L MCV 92 MCH 31 MCHC 33 RDW 18.1 H Plt Count 200 Sodium Potassium Chloride Carbon Dioxide Anion Gap BUN Creatinine Estimated GFR BUN/Creatinine Ratio Glucose POC Glucose Calcium Phosphorus Magnesium
[2016-10-13] MEDS ORDERED: TPN ADULT 2,016 ML IV SCH (20:00)
[2016-10-13] MEDS: MYCAMINE 100 MG in NACL 0.9% 100 ML IV SCH (21:11)
[2016-10-14] MEDS: HumuLIN R SUB-Q SCH ×6 (00:13→23:56)
[2016-10-14] MEDS: LOPRESSOR IV SCH ×4 (02:15→20:34)
[2016-10-14] MEDS: APRESOLINE IV PRN ×4 (06:45→20:34)
[2016-10-14] MEDS: LOPRESSOR IV PRN (06:46)
[2016-10-14 07:24] LABS: BUN/Creatinine Ratio 30.52; Calcium 8.8 mg/dL (8.4-10.2)
--- NOTE | 2016-10-14 07:56 | Progress Note ---
Assessment and Plan Assessment and plan: Assessment and plan: Acute hypoxic respiratory failure On mechanical ventilation Status post trach Acute massive left MCA CVA Status post TPA Aspirin/statin Supportive care Toxic metabolic Encephalopathy Multifactorial. Still not following commands Dislodged PEG Status post wedge gastrectomy, repair of gastric perforation, abdominal washout and drain placement Surgery following Severe sepsis with septic shock UTI/candidemia/peritonitis due to gastric perforation from dislodged PEG Off pressors She is on Zosyn and micafungin Antibiotic/antifungals per ID recommendation Candidemia Peritonitis Toxic metabolic encephalopathy,unresponsive. neurology following Acute blood loss anemia requiring multiple PRBC transfusions. Hemoglobin 8.4 today . Repeat stool occult blood positive. GI Physician was following, now signed off. Monitor H&H closely, Fever due to sepsis. CT Abdomen negative for sepsis Acute on chronic kidney disease, had dialysis . Creatinine 1.9 today. Paroxysmal A. fib Status post failed conversion on 09/25 Continue Amiodarone drip No anticoagulation due to anemia/thrombocytopenia, massive CVA Diabetes mellitus type 2 Insulin/SSI Leukocytosis improving. WBC 20.7 today Severe protein caloric malnutrition Currently on TPN Extensive back skin peeling, much improved. Thrombocytopenia DVT prophylaxis SCDs, no pharmacological agent given anemia requiring multiple PRBC transfusions , thrombocytopenia, massive stroke Hyperkalemia. Resolved after dialysis Full code status Prognosis guarded Had a family meeting Monday in which I discussed plan. Present at meeting was the Risk management staff, plant health manager and myself, patient's son and patients ' sister. addendum; Had another family meeting today at 10:00am with Dr. Nazario, myself, Creative Guru and patient's daughter. We discussed diagnosis,plan and prognosis, and all her questions were answered. History Interval history: Patient with multi-organ failure, Fever , Still does not follow commands Hospitalist Physical - Physical exam Narrative exam: Gen appearance: Trach, not in acute distress HEENT: Atraumatic Neck: Tracheostomy Lungs: Clear to auscultation bilaterally, no crackles or wheezes Heart :S1 and S2 irregular, no murmurs, rubs or gallop Abdomen: Soft, surgical drain, dressing over left upper quadrant, bowel sounds present Extremities : bilateral edema, upper and lower ext Neuro: Does not follow commands - Constitutional Vitals: Temp Pulse Resp BP Pulse Ox 100.9 F H 110 H 25 H 172/100 100 10/14/16 03:02 10/14/16 06:46 10/14/16 06:00 10/14/16 06:46 10/14/16 06:00 General appearance: Present: mild distress, obese, other (on vent, non- responsive) Results - Labs CBC & Chem 7: 10/14/16 08:10 10/14/16 06:35 Labs: Laboratory Last Values WBC 23.4 K/mm3 (4.5-11.0) H 10/13/16 Unknown RBC 2.83 M/mm3 (3.65-5.03) L 10/13/16 Unknown Hgb 8.7 gm/dl (10.1-14.3) L 10/13/16 Unknown Hct 26.1 % (30.3-42.9) L 10/13/16 Unknown MCV 92 fl (79-97) 10/13/16 Unknown MCH 31 pg (28-32) 10/13/16 Unknown MCHC 33 % (30-34) 10/13/16 Unknown RDW 18.1 % (13.2-15.2) H 10/13/16 Unknown Plt Count 200 K/mm3 (140-440) 10/13/16 Unknown Lymph % (Auto) 6.9 % (13.4-35.0) L 09/21/16 07:45 [place] % (Auto) 0.5 % (0.0-7.3) 10/03/16 05:10 Eos % (Auto) 1.3 % (0.0-4.3) 10/03/16 05:10 Baso % (Auto) 0.2 % (0.0-1.8) 09/21/16 07:45 Lymph # 0.9 K/mm3 (1.2-5.4) L 09/21/16 07:45 [place] # 0.1 K/mm3 (0.0-0.8) 10/03/16 05:10 Eos # 0.2 K/mm3 (0.0-0.4) 10/03/16 05:10 Baso # 0.0 K/mm3 (0.0-0.1) 10/03/16 05:10 Add Manual Diff Complete 10/10/16 05:00 Total Counted 100 10/10/16 05:00 Seg Neutrophils % Maintenance Assistant 10/03/16 05:10 Seg Neuts % (Manual) 61.0 % (40.0-70.0) 10/10/16 05:00 Band Neutrophils % 24.0 % 10/10/16 05:00 Lymphocytes % (Manual) 10.0 % (13.4-35.0) L 10/10/16 05:00 Reactive Lymphs % (Man) 0 % 10/10/16 05:00 Monocytes % (Manual) 2.0 % (0.0-7.3) 10/10/16 05:00 Eosinophils % (Manual) 0 % (0.0-4.3) 10/10/16 05:00 Basophils % (Manual) 0 % (0.0-1.8) 10/10/16 05:00 Metamyelocytes % 3.0 % 10/10/16 05:00 Myelocytes % 0 % 10/10/16 05:00 Promyelocytes % 0 % 10/10/16 05:00 Blast Cells % 0 % 10/10/16 05:00 Nucleated RBC % 4.0 % (0.0-0.9) H 10/10/16 05:00 Seg Neutrophils # 11.9 K/mm3 (1.8-7.7) H 10/03/16 05:10 Seg Neutrophils # Man 11.3 K/mm3 (1.8-7.7) H 10/10/16 05:00 Band Neutrophils # 4.4 K/mm3 10/10/16 05:00 Lymphocytes # (Manual) 1.9 K/mm3 (1.2-5.4) 10/10/16 05:00 Abs React Lymphs (Man) 0.0 K/mm3 10/10/16 05:00 Monocytes # (Manual) 0.4 K/mm3 (0.0-0.8) 10/10/16 05:00 Eosinophils # (Manual) 0.0 K/mm3 (0.0-0.4) 10/10/16 05:00 Basophils # (Manual) 0.0 K/mm3 (0.0-0.1) 10/10/16 05:00 Metamyelocytes # 0.6 K/mm3 10/10/16 05:00 Myelocytes # 0.0 K/mm3 10/10/16 05:00 Promyelocytes # 0.0 K/mm3 10/10/16 05:00 Blast Cells # 0.0 K/mm3 10/10/16 05:00 Pathologist Review 09/13/16 04:00 WBC Morphology Not Reportable 10/10/16 05:00 Hypersegmented Neuts Not Reportable 10/10/16 05:00 Hyposegmented Neuts Not Reportable 10/10/16 05:00 Hypogranular Neuts Not Reportable 10/10/16 05:00 Smudge Cells Not Reportable 10/10/16 05:00 Toxic Granulation Not Reportable 10/10/16 05:00 Toxic Vacuolation Not Reportable 10/10/16 05:00 Dohle Bodies Not Reportable 10/10/16 05:00 Pelger-Huet Anomaly Not Reportable 10/10/16 05:00 Jasmina Rods Not Reportable 10/10/16 05:00 Platelet Estimate Consistent w auto 10/10/16 05:00 Clumped Platelets Not Reportable 10/10/16 05:00 Plt Clumps, EDTA Not Reportable 10/10/16 05:00 Large Platelets Not Reportable 10/10/16 05:00 Giant Platelets Not Reportable 10/10/16 05:00 Platelet Satelliting Not Reportable 10/10/16 05:00 Plt Morphology Comment Not Reportable 10/10/16 05:00 RBC Morphology Not Reportable 10/10/16 05:00 Dimorphic RBCs Not Reportable 10/10/16 05:00 Polychromasia Rare 10/10/16 05:00 Hypochromasia 1+ 10/10/16 05:00 Poikilocytosis Not Reportable 10/10/16 05:00 Anisocytosis 1+ 10/10/16 05:00 Microcytosis Not Reportable 10/10/16 05:00 Macrocytosis 1+ 10/10/16 05:00 Spherocytes Not Reportable 10/10/16 05:00 Pappenheimer Bodies Not Reportable 10/10/16 05:00 Sickle Cells Not Reportable 10/10/16 05:00 Target Cells Not Reportable 10/10/16 05:00 Tear Drop Cells Not Reportable 10/10/16 05:00 Ovalocytes Not Reportable 10/10/16 05:00 Stomatocytes Few 10/06/16 03:50 Helmet Cells Not Reportable 10/10/16 05:00 [place] Bodies Not Reportable 10/10/16 05:00 Ramey Rings Not Reportable 10/10/16 05:00 [place] Cells Not Reportable 10/10/16 05:00 Bite Cells Not Reportable 10/10/16 05:00 Crenated Cell Not Reportable 10/10/16 05:00 Elliptocytes Not Reportable 10/10/16 05:00 Acanthocytes (Spur) Not Reportable 10/10/16 05:00 Rouleaux Not Reportable 10/10/16 05:00 Hemoglobin C Crystals Not Reportable 10/10/16 05:00 Schistocytes Not Reportable 10/10/16 05:00 Malaria parasites Not Reportable 10/10/16 05:00 ESR > 140.0 mm/Hr (0-20) 09/08/16 11:48 Jun Bodies Not Reportable 10/10/16 05:00 Hem Pathologist Commnt No 10/10/16 05:00 PT 19.0 Sec. (12.2-14.9) H 10/09/16 03:45 INR 1.51 (0.87-1.13) H 10/09/16 03:45 APTT 33.0 Sec. (24.2-36.6) 10/09/16 03:45 Thrombin Time 16.8 Sec. (15.1-19.6) 09/03/16 00:10 Fibrinogen 750 mg/dl (211-480) H 09/08/16 11:48 Lupus Anticoagulant see below 09/12/16 09:59 LA PTT Baseline See scanned report 09/12/16 09:59 dRVVT Confirm Interp Positive (Negative) H 09/12/16 09:59 dRVVT Screen 50:50 See scanned report 09/12/16 09:59 dRVVT Mix Interpret See scanned report 09/12/16 09:59 Protein C Antigen 122 % (70-140) 09/08/16 15:35 Free Protein S 97 % normal (50-147) 09/08/16 15:35 Total Protein S 109 % (70-140) 09/08/16 15:35 Antithrombin III Ag 100 % (80-120) 09/08/16 15:35 Heparin Anti-Xa, Unfract Negative (Negative) 09/29/16 13:35 Factor V Activity 182 % (65-150) H 09/08/16 15:35 POC ABG pH 7.437 (7.35-7.45) 10/08/16 12:49 POC ABG pCO2 28.2 (35-45) L 10/08/16 12:49 POC ABG pO2 111 (80-105) H 10/08/16 12:49 POC ABG HCO3 19.0 10/08/16 12:49 POC ABG Total CO2 20 10/08/16 12:49 POC ABG O2 Sat 99 10/08/16 12:49 POC ABG Base Excess -5 10/08/16 12:49 FiO2 28 % 10/08/16 12:49 Sodium 140 mmol/L (137-145) 10/14/16 06:35 Potassium 3.9 mmol/L (3.6-5.0) 10/14/16 06:35 Chloride 98.1 mmol/L (98-107) 10/14/16 06:35 Carbon Dioxide 25 mmol/L (22-30) 10/14/16 06:35 Anion Gap 21 mmol/L 10/14/16 06:35 BUN 58 mg/dL (7-17) H 10/14/16 06:35 Creatinine 1.9 mg/dL (0.7-1.2) H 10/14/16 06:35 Estimated GFR 35 ml/min 10/14/16 06:35 BUN/Creatinine Ratio 30.52 % 10/14/16 06:35 Glucose 169 mg/dL (65-100) H 10/14/16 06:35 POC Glucose 195 (70-105) H 10/14/16 05:38 Osmolality 351 Mosm/kg 09/16/16 11:47 Lactic Acid 4.50 mmol/L (0.7-2.0) H* 09/28/16 07:25 Calcium 8.8 mg/dL (8.4-10.2) 10/14/16 06:35 Phosphorus 2.60 mg/dL (2.5-4.5) 10/14/16 06:35 Magnesium 1.70 mg/dL (1.7-2.3) 10/14/16 06:35 Total Bilirubin 0.40 mg/dL (0.1-1.2) 10/10/16 05:00 Direct Bilirubin 0.3 mg/dL (0-0.2) H 10/10/16 05:00 Indirect Bilirubin 0.1 mg/dL 10/10/16 05:00 AST 21 units/L (5-40) 10/10/16 05:00 ALT < 5 units/L (7-56) L 10/10/16 05:00 Alkaline Phosphatase 319 units/L (35-129) H 10/10/16 05:00 Ammonia 27.0 umol/L (25-60) 09/07/16 08:37 Total Creatine Kinase 121 units/L (30-135) 09/29/16 20:12 CK-MB (CK-2) < 1.0 ng/mL (0.0-4.0) 09/29/16 20:12 CK-MB (CK-2) Rel Index 0.8 (0-4) 09/29/16 20:12 Troponin T 0.204 ng/mL (0.00-0.029) H* 09/29/16 20:12 C-Reactive Protein 15.80 mg/dL (0.00-1.30) H 10/11/16 04:15 Total Protein 5.1 g/dL (6.3-8.2) L 10/10/16 05:00 Albumin 1.0 g/dL (3.9-5) L 10/10/16 05:00 Albumin/Globulin Ratio 0.2 % 10/10/16 05:00 Triglycerides 137 mg/dL (2-149) 09/29/16 20:12 Cholesterol 31 mg/dL (50-199) L 09/29/16 20:12 LDL Cholesterol Direct 4 mg/dL (50-130) L 09/29/16 20:12 HDL Cholesterol 3 mg/dL (40-59) L 09/29/16 20:12 Cholesterol/HDL Ratio 10.33 % 09/29/16 20:12 Angiotensin Convert Enz See scanned report 09/08/16 11:48 Serotonin Release Assay See scanned report 09/29/16 13:35 TSH 1.010 mlU/mL (0.270-4.200) 09/07/16 08:37 HCG, Qual Negative (Negative) 09/03/16 00:10 Urine Color [place] (Yellow) 10/07/16 18:30 Urine Turbidity Turbid (Clear) 10/07/16 18:30 Urine pH 7.0 (5.0-7.0) 10/07/16 18:30 Ur Specific [place] 1.012 (1.003-1.030) 10/07/16 18:30 Urine Protein 100 mg/dl mg/dL (Negative) 10/07/16 18:30 Urine Glucose (UA) Neg mg/dL (Negative) 10/07/16 18:30 Urine Ketones Neg mg/dL (Negative) 10/07/16 18:30 Urine Blood Lg (Negative) 10/07/16 18:30 Urine Nitrite Neg (Negative) 10/07/16 18:30 Urine Bilirubin Neg (Negative) 10/07/16 18:30 Urine Urobilinogen < 2.0 mg/dL (<2.0) 10/07/16 18:30 Ur Leukocyte Esterase Lg (Negative) 10/07/16 18:30 Urine WBC (Auto) > 182.0 /HPF (0.0-6.0) H 10/07/16 18:30 Urine RBC (Auto) > 182.0 /HPF (0.0-6.0) 10/07/16 18:30 U Epithel Cells (Auto) 1.0 /HPF (0-13.0) 10/07/16 18:30 Urine Bacteria (Auto) 3+ /HPF (Negative) 10/07/16 18:30 Urine WBC Clumps 2+ /HPF 09/07/16 02:47 Hyaline Casts 4 /LPF 09/07/16 02:47 Urine Mucus Few /HPF 10/07/16 18:30 Urine Yeast (Budding) 3+ /HPF 10/07/16 18:30 Urine Eosinophils None seen (None Seen) 09/07/16 16:00 Urine Total Volume 1350 09/21/16 12:00 Urine Creatinine 54.8 mg/dL (0.1-20.0) H 09/21/16 12:00 Height (in) 67.0 inches 09/21/16 12:00 Weight (lb) 92.0 lbs 09/21/16 12:00 Creatinine Clearance 15 09/21/16 12:00 Urine Sodium 36 mEq/L 09/16/16 19:19 Urine Total Protein 16 mg/dL (5-11.8) H 09/16/16 19:19 Vancomycin Trough 2.3 ug/mL (5.0-20.0) L 09/21/16 13:00 Random Vancomycin 2.3 ug/mL (0-40.0) 09/09/16 03:00 Urine Opiates Screen Presumptive negative 09/03/16 15:11 Urine Methadone Screen Presumptive positive 09/03/16 15:11 Ur Barbiturates Screen Presumptive positive 09/03/16 15:11 Ur Phencyclidine Scrn Presumptive negative 09/03/16 15:11 Ur Amphetamines Screen Presumptive negative 09/03/16 15:11 U Benzodiazepines Scrn Presumptive negative 09/03/16 15:11 Urine Cocaine Screen Presumptive negative 09/03/16 15:11 U Marijuana (THC) Screen Presumptive positive 09/03/16 15:11 Drugs of Abuse Note Disclamer 09/03/16 15:11 Rheumatoid Factor 24 IU/ml (0-13) H 09/08/16 11:48 SAHIL Screen Negative (Negative) 09/07/16 09:20 Proteinase 3 (PR3) Ab <1.0 AI (<1.0) 09/07/16 09:20 Myeloperoxidase Ab <1.0 AI (<1.0) 09/07/16 09:20 Sjogren's Antibody <1.0 AI (<1.0) 09/08/16 15:35 Scl-70 Scleroderma Ab <1.0 AI (<1.0) 09/08/16 15:35 Centromere B Antibody <1.0 AI (<1.0) 09/08/16 12:02 Heparin-induced Plt Ab Negative (Negative) 09/29/16 13:35 UF Heparin High Dose 11 % Release 09/29/16 13:35 SUDHIR UFH Low Dose 0.1 6 % Release 09/29/16 13:35 SUDHIR UFH Low Dose 0.5 8 % Release 09/29/16 13:35 Cardiolipid IgG Ab <14 GPL (<=14) 09/12/16 09:59 Cardiolipid IgA Ab <11 APL (<=11) 09/12/16 09:59 Cardiolipid IgM Ab <12 MPL (<=12) 09/12/16 09:59 Complement C3 148 mg/dL (90-180) 09/07/16 09:20 Complement C4 58 mg/dL (16-47) H 09/07/16 09:20 RPR Nonreactive (Nonreactive) 09/08/16 11:48 Hepatitis A IgM Ab Non-reactive (NonReactive) 09/24/16 14:40 Hep Bs Antigen Non-reactive (Negative) 09/24/16 14:40 Hep B Core IgM Ab Non-reactive (NonReactive) 09/24/16 14:40 Hepatitis C Antibody Non-reactive (NonReactive) 09/24/16 14:40 HIV 1&2 Antibody Rapid Non react (Non React) 09/08/16 11:48 HIV P24 Antigen Non react (Non React) 09/08/16 11:48 Miscellaneous Test Flexitest 1 H 10/07/16 03:45 Blood Type A POSITIVE 10/09/16 07:20 Antibody Screen Negative 10/09/16 07:20 DELORIS Antibody Screen Negative 09/25/16 10:30 Crossmatch See Detail 10/09/16 07:20
[2016-10-14 08:25] LABS: Hematocrit 27.2 % (30.3-42.9); Hemoglobin 8.4 gm/dl (10.1-14.3); Mean Corpuscular HGB Conc 31 % (30-34); Mean Corpuscular Hemoglobin 30 pg (28-32); Mean Corpuscular Volume 97 fl (79-97); Platelet Count 239 K/mm3 (140-440); Red Blood Count 2.81 M/mm3 (3.65-5.03); Red Cell Distribution Width 19.4 % (13.2-15.2)
[2016-10-14] MEDS ORDERED: APRESOLINE IV SCH (08:38)
--- NOTE | 2016-10-14 09:28 | Progress Note ---
Assessment and Plan Acute hypoxic respiratory failure on mechanical ventilation s/p trach and PEG Acute left MCA CVA echocardiogram demonstrates at least moderate LVH but a normal LV systolic function, EF 50-55%. no thrombus visualized on transthoracic echocardiogram. Dislodged PEG tube s/p repair of gastric perforation with wedge gastrectomy Hypertension was hypotensive requiring pressor support Acute on chronic renal failure requiring dialysis Fungemia Diabetes mellitus Anemia requiring transfusion of PRBCs Leukocytosis Paroxysmal Afib s/p failed cardioversion on 09/25 on IV lopressor for suppression considered not a candidate for anticoagulation due to severe anemia and thrombocytopenia. Conservative cardiac management. Subjective Date of service: 10/14/16 Principal diagnosis: hematochezia Interval history: No acute events reported overnight. Objective Vital Signs Temp Pulse Pulse Pulse Pulse Pulse Pulse 10/14/16 09:12 100 H 10/14/16 08:55 99 H 10/14/16 08:43 114 H 10/14/16 08:00 113 H 10/14/16 07:00 112 H 10/14/16 06:46 110 H 10/14/16 06:45 112 H 10/14/16 06:00 130 H 10/14/16 05:00 139 H 10/14/16 04:00 130 H 10/14/16 03:23 128 H 10/14/16 03:02 100.9 F H 10/14/16 03:00 130 H 10/14/16 02:15 125 H 10/14/16 02:00 156 H 10/14/16 01:00 122 H 10/14/16 00:00 128 H 10/13/16 23:38 132 H 10/13/16 23:13 99.9 F H 10/13/16 23:12 113 H 113 H 113 H 113 H 113 H 10/13/16 23:02 121 H 10/13/16 23:00 132 H 10/13/16 22:50 124 H 10/13/16 22:00 110 H 10/13/16 21:51 120 H 10/13/16 21:46 120 H 10/13/16 21:00 121 H 10/13/16 20:00 101.7 F H 115 H 120 H 120 H 129 H 120 H 120 H 10/13/16 19:24 113 H 10/13/16 19:00 113 H 10/13/16 18:25 132 H 10/13/16 18:00 128 H 10/13/16 17:00 127 H 10/13/16 16:00 98.6 F 105 H 10/13/16 15:33 10/13/16 15:26 109 H 10/13/16 15:11 125 H 10/13/16 15:00 117 H 10/13/16 14:16 128 H 10/13/16 14:15 98.3 F 132 H 10/13/16 14:00 132 H 10/13/16 13:45 116 H 10/13/16 13:30 121 H 10/13/16 13:15 127 H 10/13/16 13:00 125 H 10/13/16 12:45 122 H 10/13/16 12:30 120 H 10/13/16 12:15 123 H 10/13/16 12:00 98.3 F 115 H 10/13/16 11:59 119 H 10/13/16 11:45 119 H 10/13/16 11:30 117 H 10/13/16 11:15 116 H 10/13/16 11:01 116 H 10/13/16 11:00 99.0 F 116 H 10/13/16 10:01 117 H 10/13/16 10:00 110 H Resp BP Pulse Ox Pulse Ox Pulse Ox 10/14/16 09:12 38 H 193/108 100 100 10/14/16 08:55 189/108 100 10/14/16 08:43 186/112 10/14/16 08:00 22 189/109 100 10/14/16 07:00 23 159/96 100 10/14/16 06:46 172/100 10/14/16 06:45 195/106 10/14/16 06:00 25 H 189/125 100 10/14/16 05:00 20 174/93 100 10/14/16 04:00 28 H 150/75 100 10/14/16 03:23 134/87 100 10/14/16 03:02 10/14/16 03:00 26 H 170/73 100 10/14/16 02:15 178/85 10/14/16 02:00 26 H 192/106 100 10/14/16 01:00 33 H 167/95 96 10/14/16 00:00 29 H 171/84 100 10/13/16 23:38 167/89 100 10/13/16 23:13 10/13/16 23:12 22 10/13/16 23:02 26 H 161/103 100 10/13/16 23:00 26 H 165/100 100 10/13/16 22:50 26 H 161/103 100 10/13/16 22:00 25 H 159/91 100 10/13/16 21:51 10/13/16 21:46 155/89 10/13/16 21:00 26 H 159/101 100 10/13/16 20:00 28 H 125/81 100 10/13/16 19:24 121/67 100 10/13/16 19:00 29 H 141/77 100 10/13/16 18:25 10/13/16 18:00 28 H 178/104 100 10/13/16 17:00 29 H 161/107 100 10/13/16 16:00 21 99/60 100 10/13/16 15:33 99 10/13/16 15:26 152/104 100 10/13/16 15:11 223/104 100 10/13/16 15:00 25 H 163/101 99 10/13/16 14:16 155/102 10/13/16 14:15 26 H 155/102 100 10/13/16 14:00 30 H 164/107 100 10/13/16 13:45 135/99 10/13/16 13:30 144/107 10/13/16 13:15 166/109 10/13/16 13:00 28 H 171/106 100 10/13/16 12:45 165/101 10/13/16 12:30 177/109 10/13/16 12:15 164/99 10/13/16 12:00 30 H 156/94 100 10/13/16 11:59 152/104 100 10/13/16 11:45 152/104 10/13/16 11:30 147/99 10/13/16 11:15 147/96 10/13/16 11:01 20 91/51 99 10/13/16 11:00 28 H 111/61 100 10/13/16 10:01 27 H 104/52 100 10/13/16 10:00 - Physical Examination General: Other (ventilated via trach) Cardiac: Positive: Reg Rate and Rhythm - Labs and Meds CBC 10/14/16 Range/Units 08:10 WBC 20.7 H (4.5-11.0) K/mm3 RBC 2.81 L (3.65-5.03) M/mm3 Hgb 8.4 L (10.1-14.3) gm/dl Hct 27.2 L (30.3-42.9) % Plt Count 239 (140-440) K/mm3 Comprehensive Metabolic Panel 10/14/16 Range/Units 06:35 Sodium 140 (137-145) mmol/L Potassium 3.9 (3.6-5.0) mmol/L Chloride 98.1 (98-107) mmol/L Carbon Dioxide 25 (22-30) mmol/L BUN 58 H (7-17) mg/dL Creatinine 1.9 H (0.7-1.2) mg/dL Glucose 169 H (65-100) mg/dL Calcium 8.8 (8.4-10.2) mg/dL - Imaging and Cardiology EKG: image reviewed - Allied health notes Allied health notes reviewed: RT
[2016-10-14] MEDS: PROTONIX IV SCH (09:49)
[2016-10-14] MEDS: MERREM 1,000 MG in NACL 0.9% 100 ML IV SCH (09:49)
--- NOTE | 2016-10-14 10:33 | Consultation ---
History of Present Illness - Reason for Consult Consult date: 10/14/16 care conference - History of Present Illness Dr. Ribeiro and Cassi had care conference with daughter for 20 minutes and answered all questions health care legal assistant was present as well all answers were given and emphasis on combo effort at addressing multiple matters Past History Past Medical History: diabetes, hypertension, renal failure, other (Medical noncompliance) Past Surgical History: cholecystectomy (per chart review) Social history: other (per chart review, family denied any smoking or alcohol history on admission). denies: smoking, alcohol abuse, prescription drug abuse , IV drug use Family history: hypertension (per chart review) Medications and Allergies Allergies Allergy/AdvReac Type Severity Reaction Status Date / Time No Known Allergies Allergy Verified 04/14/15 06:02 Home Medications Medication Instructions Recorded Confirmed Last Taken Type Acetaminophen [Tylenol Arthritis] 650 mg PO QID PRN #30 tablet.er 02/15/1609/12 Unknown Rx Albuterol Sulfate [Proventil HFA] 6.7 gm INHALATION Q4-6H 02/15/16 09/12/16 History Insulin Glargine [Lantus VIAL] 30 units SQ QHS 02/15/16 09/12/16 02/15/16 History Clonidine HCl [Catapres] 0.3 mg PO TID #90 tablet 06/15/16 09/12/16 Unknown Rx Lisinopril [Zestril] 40 mg PO BID #60 tablet 06/15/16 09/12/16 Unknown Rx Polyethylene Glycol 3350 [Miralax 17 gm PO QDAY PRN #10 packet 06/15/16 Unknown Rx 3350] Albuterol 2 inhalation INHALATION Q4HR PRN 09/12/16 09/12/16 Unknown History AtorvaSTATin [Lipitor] 20 mg PO QHS 09/12/16 09/12/16 Unknown History Flovent 110 MCG/PUFF HFA 1 inhalation INHALATION QHS 09/12/16 09/12/16 Unknown History Furosemide [Lasix] 20 mg PO QDAY 09/12/16 09/12/16 Unknown History HumaLOG VIAL 45 units SUB-Q TID 09/12/16 09/12/16 Unknown History Insulin Aspart [NovoLOG Flexpen] 30 units SUB-Q TID MDD 30 Units 09/12/16 Unknown History Labetalol HCl 300 mg PO BID 09/12/16 09/12/16 Unknown History Spironolactone [Aldactone] 25 mg PO QDAY 09/12/16 09/12/16 Unknown History hydrALAZINE [Apresoline] 25 mg PO BID 09/12/16 09/12/16 Unknown History Active Meds: Active Medications Epoetin Mariusz (Epogen) 20,000 unit IV KERWIN PRN PRN Reason: hemodialysis Last Admin: 10/10/16 17:02 Dose: 20,000 unit Heparin Sodium (Porcine) (Heparin) 5,000 unit IV KERWIN PRN PRN Reason: hemodialysis Last Admin: 10/13/16 14:05 Dose: 5,000 unit Hydralazine HCl (Apresoline) 10 mg IV Q4HR PRN PRN Reason: SBP >160 Last Admin: 10/14/16 09:54 Dose: 10 mg Sodium Chloride (Nacl 0.9%) 100 mls @ 999 mls/hr IV KERWIN PRN PRN Reason: Hypotension Fentanyl Citrate (Fentanyl Drip Premix) 2,000 mcg in 100 mls @ 4.48 mls/hr IV TITR AGUSTIN; 1 MCG/KG/HR PRN Reason: Protocol Last Admin: 10/12/16 18:36 Dose: 1 mcg/kg/hr, 4.48 mls/hr Meropenem 1,000 mg/ Sodium (Chloride) 100 mls @ 100 mls/hr IV Q24HR [facility] [place] Last Admin: 10/14/16 09:49 Dose: 100 mls/hr Amino Acids/Electrolytes/Dextrose (Tpn Adult) 2,016 mls @ 84 mls/hr IV DAILY@ 2000 AGUSTIN PRN Reason: Protocol Stop: 10/14/16 19:59 Last Admin: 10/13/16 20:20 Dose: 84 mls/hr Insulin Human Regular (Novolin R) 0 units SUB-Q Q6HR AGUSTIN PRN Reason: Protocol Last Admin: 10/14/16 06:58 Dose: 2 units Metoprolol Tartrate (Lopressor) 2.5 mg IV Q4H PRN PRN Reason: HR >130 Last Admin: 10/14/16 06:46 Dose: 2.5 mg Metoprolol Tartrate (Lopressor) 5 mg IV Q6H [facility] [place] Last Admin: 10/14/16 08:43 Dose: 5 mg Multi-Ingred Cream/Lotion/Oil/Oint (Artificial Tears Ophth Oint) 1 applic OU Q4HR PRN PRN Reason: Dry Eye(s) Ondansetron HCl (Zofran) 4 mg IV Q8H PRN PRN Reason: N/V unrelieved by Reglan Last Admin: 10/08/16 06:53 Dose: 4 mg Pantoprazole Sodium (Protonix) 40 mg IV DAILY [facility] [place] Last Admin: 10/14/16 09:49 Dose: 40 mg Exam - Constitutional Vitals: Temp Pulse Resp BP Pulse Ox 98.4 F 111 H 48 H 198/118 100 10/14/16 08:00 10/14/16 10:07 10/14/16 09:59 10/14/16 10:07 10/14/16 10:07 Results - Labs CBC & Chem 7: 10/14/16 08:10 10/14/16 06:35 Labs: Abnormal lab results 10/13/16 10/13/16 10/14/16 Range/Units 12:29 18:09 05:38 WBC (4.5-11.0) K/mm3 RBC (3.65-5.03) M/mm3 Hgb (10.1-14.3) gm/dl Hct (30.3-42.9) % RDW (13.2-15.2) % BUN (7-17) mg/dL Creatinine (0.7-1.2) mg/dL Glucose (65-100) mg/dL POC Glucose 193 H 166 H 195 H (70-105) 10/14/16 10/14/16 Range/Units 06:35 08:10 WBC 20.7 H (4.5-11.0) K/mm3 RBC 2.81 L (3.65-5.03) M/mm3 Hgb 8.4 L (10.1-14.3) gm/dl Hct 27.2 L (30.3-42.9) % RDW 19.4 H (13.2-15.2) % BUN 58 H (7-17) mg/dL Creatinine 1.9 H (0.7-1.2) mg/dL Glucose 169 H (65-100) mg/dL POC Glucose (70-105)
--- NOTE | 2016-10-14 11:09 | Progress Note ---
Assessment and Plan Assessment: 1) Recurrent Sepsis: still leukocytosis and fever ? unclear source. -Current sepsis etiology - peritonitis from gastric perforation +/- UTI. -Initial sepsis etiology - presumed aspiration pneumonia, and another septic episode on 09/23 from Candidemia. -CRP 19 --> 22 -Procalcitonin=24 -repeat CT abdomen no leak no abscess -repeat blood cx - pending 2) Peritonitis: from gastric perforation from dislodged PEG with significant ascites -S/P exlap, repair of gastric perforation with wedge gastrectomy, abdominal washout, drain placement on 10/05. 3) Candidemia: -Blood cultures positive for Silvia albicans on 09/23 -Blood cultures positive on 09/25 -Blood cutlures negative on 09/30 -PICC line changed on 10/03 -Source ? gastric perf (PEG placed on 09/20) +/- TPN +/- central lines -TTE 10/07 no vegetations -PICC exchanged on 10/03 -fully treated with micafungin for 14 days last day 10/13 4) CA-UTI s/p gutierrez exchanged 5) Diarrhea - ? etiology ? antibiotic-induced, not better 6) Initial presumed aspiration pneumonia 7) Presumed UTI: urine cx 09/23 multiple species 8) Respiratory failure s/p trach 9) Recent CVA-left MCA CVA 10) Uncontrolled HTN 11) Acute on CKD 12) Extensive back skin peeling ? burn from gastric secretions. Doubt allergic reaction 13) Severe anemia; ? from GI bleed Plan: -follow-up repeat blood cultures and procalcitonin in view of fever and persistent leukocytosis -continue meropenem to cover peritonitis (was on zosyn before) day 8 of 14 -check legs US r/o DVT in view of persistent fever Thank you Dr Ribeiro for your consultation, will follow up with you. Pauline Carias MD Infectious Diseases Specialist [facility] ([facility] M [phone] O [phone] Subjective Date of service: 10/14/16 Principal diagnosis: hematochezia Interval history: More alert, open eyes spontaneously, not following commands, on the vent via trach, on vent CPAP mode, no pressors. Still fever at 100.9 last 24h. +oliguric. + diarrhea Microbiology: Blood cultures: 09/13 neg / Silvia albicans 09/25 Silvia 09/29 neg 10/07 NGTD Urine cultures: 09/10 neg 09/13 neg 8/4 10-100K mixed species 10/07 pending Respiratory cultures: 09/07 neg 09/13 neg 09/23 neg Wound cultures: Stool cultures: Current Antimicrobials: Meropenem 10/10 Previous Antimicrobials: Zosyn 10/07 Vancomycin PO 10/01 Metronidazole 09/25 Micafungin 09/27-10/13 Objective - Exam Narrative Exam: General appearance: alert, non verbal, on the vent via trach no following commands Eyes: anicteric sclera, moist conjunctivae; PERRLA HENT: Atraumatic; oropharynx limited; Normal external ears. +NGT with greenish secretion Neck: +trach in place; supple, no thyromegaly or lymphadenopathy Lungs: coarse BS bilateral CV: tachycardic Abdomen: Soft, non-tender, +drain with purulent drainage, + diarrhea via rectal tube. +old PEG site no drainage. Extremities: +peripheral edema no extremity lymphadenopathy Skin: Julian sub mammary ulcers, extensive skin peeling on back Psych: somnolent . Neuro: somnolent non verbal on the vent. Lines: left arm PICC placed on 10/03 - Constitutional Vitals: Vital Signs Temp Pulse Resp BP Pulse Ox 98.4 F 111 H 48 H 198/118 100 10/14/16 08:00 10/14/16 10:07 10/14/16 09:59 10/14/16 10:07 10/14/16 10:07 Temperature -Last 24 Hours Temperature 98.4 F Temperature 100.9 F Temperature 99.9 F Temperature 101.7 F Temperature 98.6 F Temperature 98.3 F Temperature 98.3 F - Labs CBC & Chem 7: 10/14/16 08:10 10/14/16 06:35 Labs: Abnormal lab results 10/13/16 10/13/16 10/14/16 Range/Units 12:29 18:09 05:38 WBC (4.5-11.0) K/mm3 RBC (3.65-5.03) M/mm3 Hgb (10.1-14.3) gm/dl Hct (30.3-42.9) % RDW (13.2-15.2) % BUN (7-17) mg/dL Creatinine (0.7-1.2) mg/dL Glucose (65-100) mg/dL POC Glucose 193 H 166 H 195 H (70-105) 10/14/16 10/14/16 Range/Units 06:35 08:10 WBC 20.7 H (4.5-11.0) K/mm3 RBC 2.81 L (3.65-5.03) M/mm3 Hgb 8.4 L (10.1-14.3) gm/dl Hct 27.2 L (30.3-42.9) % RDW 19.4 H (13.2-15.2) % BUN 58 H (7-17) mg/dL Creatinine 1.9 H (0.7-1.2) mg/dL Glucose 169 H (65-100) mg/dL POC Glucose (70-105)
--- NOTE | 2016-10-14 11:20 | Progress Note ---
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 * Acute hypoxic respiratory failure * Accelerated hypertension * Left renal artery stenosis * Metabolic acidosis w/ respiratory compensation * Hyponatremia - resolved * pAfib Plan: * Pressors prn MAP>65 * dialysis prn, plans for TTHSat for now * Rate control per cardiology * Transfusion of pRBC per primary team * Vent management per critical care * Dose medications for renal function * Avoid potential nephrotoxins Subjective Date of service: 10/14/16 Principal diagnosis: hematochezia Interval history: no new event Objective - Exam Narrative Exam: Gen. appearance: Patient lying in bed, no apparent distress, 4. restraints HEENT: Normocephalic, atraumatic, pupils equally round and reactive to light, extraocular movement intact, and no sclericterus,. No JVD or thyromegaly or nodule,neck supple, no carotid bruit ,mucous membranes moist, unable to examine oral cavity Heart: S1, S2, regular rate and rhythm Lungs: Clear to auscultation bilaterally, breathing comfortable Abdomen: Positive bowel sounds, nontender, nondistended, no organomegaly Extremity: No edema, cyanosis, clubbing Skin: No rash, nodules, warm, dry Neuro: Difficult to assess, facial droop, moves all 4 extremities - Vital Signs Vital signs: Vital Signs - 12hr 10/13/16 10/14/16 10/14/16 23:38 00:00 01:00 Temperature Pulse Rate 132 H 128 H 122 H Respiratory 29 H 33 H Rate Blood Pressure 167/89 171/84 167/95 O2 Sat by Pulse 100 100 96 Oximetry O2 Sat by Pulse Oximetry [ Assessment] 10/14/16 10/14/16 10/14/16 02:00 02:15 03:00 Temperature Pulse Rate 156 H 125 H 130 H Respiratory 26 H 26 H Rate Blood Pressure 192/106 178/85 170/73 O2 Sat by Pulse 100 100 Oximetry O2 Sat by Pulse Oximetry [ Assessment] 10/14/16 10/14/16 10/14/16 03:02 03:23 04:00 Temperature 100.9 F H Pulse Rate 128 H 130 H Respiratory 28 H Rate Blood Pressure 134/87 150/75 O2 Sat by Pulse 100 100 Oximetry O2 Sat by Pulse Oximetry [ Assessment] 10/14/16 10/14/16 10/14/16 05:00 06:00 06:45 Temperature Pulse Rate 139 H 130 H 112 H Respiratory 20 25 H Rate Blood Pressure 174/93 189/125 195/106 O2 Sat by Pulse 100 100 Oximetry O2 Sat by Pulse Oximetry [ Assessment] 10/14/16 10/14/16 10/14/16 06:46 07:00 08:00 Temperature 98.4 F Pulse Rate 110 H 112 H 113 H Respiratory 23 22 Rate Blood Pressure 172/100 159/96 189/109 O2 Sat by Pulse 100 100 Oximetry O2 Sat by Pulse Oximetry [ Assessment] 10/14/16 10/14/16 10/14/16 08:43 08:55 09:12 Temperature Pulse Rate 114 H 99 H 100 H Respiratory 38 H Rate Blood Pressure 186/112 189/108 193/108 O2 Sat by Pulse 100 100 Oximetry O2 Sat by Pulse 100 Oximetry [ Assessment] 10/14/16 10/14/16 10/14/16 09:54 09:59 10:07 Temperature Pulse Rate 113 H 111 H 111 H Respiratory 48 H Rate Blood Pressure 203/116 198/118 198/118 O2 Sat by Pulse 99 100 Oximetry O2 Sat by Pulse Oximetry [ Assessment] - Lab 10/14/16 08:10 10/14/16 06:35 Most recent lab results Calcium 8.8 mg/dL (8.4-10.2) 10/14/16 06:35 Phosphorus 2.60 mg/dL (2.5-4.5) 10/14/16 06:35 Magnesium 1.70 mg/dL (1.7-2.3) 10/14/16 06:35 Urine Creatinine 54.8 mg/dL (0.1-20.0) H 09/21/16 12:00 Urine Sodium 36 mEq/L 09/16/16 19:19 Urine Total Protein 16 mg/dL (5-11.8) H 09/16/16 19:19
[2016-10-14] MEDS ORDERED: NACL 0.9% 100 ML IV PRN (11:21)
--- NOTE | 2016-10-14 13:30 | Progress Note ---
Assessment and Plan Continue JUAN drain Continue NPO and TPN Continue ATBX per ID Will follow Subjective Date of service: 10/14/16 Patient Reports: Positive: other (Unchanged) Objective Vital Signs - 12hr 10/14/16 10/14/16 10/14/16 02:00 02:15 03:00 Temperature Pulse Rate 156 H 125 H 130 H Pulse Rate [ From Monitor] Respiratory 26 H 26 H Rate Respiratory Rate [ Generalized] Blood Pressure 192/106 178/85 170/73 O2 Sat by Pulse 100 100 Oximetry O2 Sat by Pulse Oximetry [ Assessment] 10/14/16 10/14/16 10/14/16 03:02 03:23 04:00 Temperature 100.9 F H Pulse Rate 128 H 130 H Pulse Rate [ From Monitor] Respiratory 28 H Rate Respiratory Rate [ Generalized] Blood Pressure 134/87 150/75 O2 Sat by Pulse 100 100 Oximetry O2 Sat by Pulse Oximetry [ Assessment] 10/14/16 10/14/16 10/14/16 05:00 06:00 06:45 Temperature Pulse Rate 139 H 130 H 112 H Pulse Rate [ From Monitor] Respiratory 20 25 H Rate Respiratory Rate [ Generalized] Blood Pressure 174/93 189/125 195/106 O2 Sat by Pulse 100 100 Oximetry O2 Sat by Pulse Oximetry [ Assessment] 10/14/16 10/14/16 10/14/16 06:46 07:00 08:00 Temperature 98.4 F Pulse Rate 110 H 112 H 113 H Pulse Rate [ 124 H From Monitor] Respiratory 23 29 H Rate Respiratory Rate [ Generalized] Blood Pressure 172/100 159/96 189/109 O2 Sat by Pulse 100 100 Oximetry O2 Sat by Pulse Oximetry [ Assessment] 10/14/16 10/14/16 10/14/16 08:30 08:43 08:46 Temperature Pulse Rate 120 H 114 H 116 H Pulse Rate [ From Monitor] Respiratory 25 H 29 H Rate Respiratory Rate [ Generalized] Blood Pressure 186/112 186/112 186/112 O2 Sat by Pulse 100 100 Oximetry O2 Sat by Pulse Oximetry [ Assessment] 10/14/16 10/14/16 10/14/16 08:55 09:00 09:12 Temperature Pulse Rate 99 H 101 H 100 H Pulse Rate [ From Monitor] Respiratory 40 H 38 H Rate Respiratory Rate [ Generalized] Blood Pressure 189/108 193/108 193/108 O2 Sat by Pulse 100 100 100 Oximetry O2 Sat by Pulse 100 Oximetry [ Assessment] 10/14/16 10/14/16 10/14/16 09:16 09:30 09:46 Temperature Pulse Rate 108 H 112 H 112 H Pulse Rate [ From Monitor] Respiratory 45 H 29 H 45 H Rate Respiratory Rate [ Generalized] Blood Pressure 193/108 202/116 203/116 O2 Sat by Pulse 100 100 100 Oximetry O2 Sat by Pulse Oximetry [ Assessment] 10/14/16 10/14/16 10/14/16 09:54 09:59 10:00 Temperature Pulse Rate 113 H 111 H 112 H Pulse Rate [ From Monitor] Respiratory 48 H 50 H Rate Respiratory 24 Rate [ Generalized] Blood Pressure 203/116 198/118 198/118 O2 Sat by Pulse 99 100 Oximetry O2 Sat by Pulse Oximetry [ Assessment] 10/14/16 10/14/16 10/14/16 10:07 10:16 10:30 Temperature Pulse Rate 111 H 107 H 109 H Pulse Rate [ From Monitor] Respiratory 24 26 H Rate Respiratory Rate [ Generalized] Blood Pressure 198/118 198/118 198/118 O2 Sat by Pulse 100 99 99 Oximetry O2 Sat by Pulse Oximetry [ Assessment] 10/14/16 10/14/16 10/14/16 10:46 11:00 11:16 Temperature Pulse Rate 109 H 114 H 110 H Pulse Rate [ From Monitor] Respiratory 22 24 25 H Rate Respiratory Rate [ Generalized] Blood Pressure 148/81 173/105 173/105 O2 Sat by Pulse 99 99 99 Oximetry O2 Sat by Pulse Oximetry [ Assessment] 10/14/16 12:00 Temperature 98.1 F Pulse Rate Pulse Rate [ From Monitor] Respiratory Rate Respiratory Rate [ Generalized] Blood Pressure O2 Sat by Pulse Oximetry O2 Sat by Pulse Oximetry [ Assessment] - Abdomen soft, bowel sounds hypoactive, other (Wounds healing without infection. JUAN drain still purulent) - Labs 10/14/16 08:10 10/14/16 06:35 Diabetes panel 10/14/16 Range/Units 06:35 Sodium 140 (137-145) mmol/L Potassium 3.9 (3.6-5.0) mmol/L Chloride 98.1 (98-107) mmol/L Carbon Dioxide 25 (22-30) mmol/L BUN 58 H (7-17) mg/dL Creatinine 1.9 H (0.7-1.2) mg/dL Glucose 169 H (65-100) mg/dL Calcium 8.8 (8.4-10.2) mg/dL Calcium panel 10/14/16 Range/Units 06:35 Calcium 8.8 (8.4-10.2) mg/dL Phosphorus 2.60 (2.5-4.5) mg/dL Pituitary panel 10/14/16 Range/Units 06:35 Sodium 140 (137-145) mmol/L Potassium 3.9 (3.6-5.0) mmol/L Chloride 98.1 (98-107) mmol/L Carbon Dioxide 25 (22-30) mmol/L BUN 58 H (7-17) mg/dL Creatinine 1.9 H (0.7-1.2) mg/dL Glucose 169 H (65-100) mg/dL Calcium 8.8 (8.4-10.2) mg/dL Adrenal panel 10/14/16 Range/Units 06:35 Sodium 140 (137-145) mmol/L Potassium 3.9 (3.6-5.0) mmol/L Chloride 98.1 (98-107) mmol/L Carbon Dioxide 25 (22-30) mmol/L BUN 58 H (7-17) mg/dL Creatinine 1.9 H (0.7-1.2) mg/dL Glucose 169 H (65-100) mg/dL Calcium 8.8 (8.4-10.2) mg/dL
--- NOTE | 2016-10-14 13:44 | Progress Note ---
Assessment and Plan - Patient Problems (1) Acute respiratory failure with hypoxia Current Visit: Yes Status: Acute Plan to address problem: Continue with mechanical ventilatory support Lung protective strategies -VAP bundle, HOB >40 - SCDs for VTE prophylaxis - Stress ulcer prophylaxis -Bronchodilators- h/o asthma -[place] catheter in this critically ill patient - TPN, accucheck with glycemic control - Agitation management/analgesia - daily SATs and SBTs as tolerated - ABGs and CXR -Trach care per RT Needs transfer to LTACH and chronic weaning from mechanical ventilatory support (2) Acute CVA (cerebrovascular accident) Current Visit: Yes Status: Acute Plan to address problem: CTScan -subacute MCA territory infarct Secondary stroke prophylaxis Neuroprotective measures Aspiration precautions (3) Chronic renal insufficiency Current Visit: Yes Status: Acute Qualifiers: Chronic kidney disease stage: C Plan to address problem: UF/HD per renal service Renal following Needs UF to facilitate resumption of weaning trials (4) Uncontrolled hypertension Current Visit: Yes Status: Acute Plan to address problem: Monitor closely and adjust anti-hypertensive medications (5) Leukocytosis (leucocytosis) Current Visit: Yes Status: Acute Qualifiers: Leukocytosis type: leukemoid reaction Qualified Code(s): D72.823 - Leukemoid reaction Plan to address problem: On antibiotics and antifungal per ID service. Discussed with ID attending re my concerns with her leukocytosis. Monitor for now while on antibiotics and antifungal, abdominal imaging today. (6) Dislodged gastrostomy tube Current Visit: Yes Status: Acute Plan to address problem: With bowel perforation/peritonitis. Purulent drainage from JUAN drain. Remains NPO and on TPN for nutritional support. GI/Surgery following (7) Fungemia Current Visit: Yes Status: Acute Plan to address problem: Anti-fungal therapy per ID service. Subjective Date of service: 10/14/16 Principal diagnosis: hematochezia Interval history: Seen and examined. Vitals, labs, medications, chart reviewed. On mechanical ventilatory support not tolerating PSV-suspect it is secondary to volume overload On TPN, with purulent drainage from the JAUN drain. No fevers.Currently no further surgical interventions On going leukocytosis. discussed with RT and RN Hospitalist service had family meeting today to address goals of care and prognosis. Discussed during interdisciplinary rounds Objective - Exam Narrative Exam: General appearance: somnolent non verbal, on the vent via trach no following commands Eyes: anicteric sclera, moist conjunctivae; PERRLA HENT: Atraumatic; oropharynx limited; Normal external ears. +NGT with greenish secretion Neck: +trach in place; supple, no thyromegaly or lymphadenopathy Lungs: coarse BS bilateral CV: tachycardic Abdomen: Soft, non-tender, +drain with purulent drainage, + diarrhea via rectal tube. +old PEG site no drainage. Extremities: +peripheral edema no extremity lymphadenopathy Skin: Julian sub mammary ulcers, extensive skin peeling on back Psych: somnolent . Neuro: Awake and alert, not obeying commands Lines: left arm PICC placed on 10/03 Vital Signs - 12hr 10/14/16 10/14/16 10/14/16 02:00 02:15 03:00 Temperature Pulse Rate 156 H 125 H 130 H Pulse Rate [ From Monitor] Respiratory 26 H 26 H Rate Respiratory Rate [ Generalized] Blood Pressure 192/106 178/85 170/73 O2 Sat by Pulse 100 100 Oximetry O2 Sat by Pulse Oximetry [ Assessment] 10/14/16 10/14/16 10/14/16 03:02 03:23 04:00 Temperature 100.9 F H Pulse Rate 128 H 130 H Pulse Rate [ From Monitor] Respiratory 28 H Rate Respiratory Rate [ Generalized] Blood Pressure 134/87 150/75 O2 Sat by Pulse 100 100 Oximetry O2 Sat by Pulse Oximetry [ Assessment] 10/14/16 10/14/16 10/14/16 05:00 06:00 06:45 Temperature Pulse Rate 139 H 130 H 112 H Pulse Rate [ From Monitor] Respiratory 20 25 H Rate Respiratory Rate [ Generalized] Blood Pressure 174/93 189/125 195/106 O2 Sat by Pulse 100 100 Oximetry O2 Sat by Pulse Oximetry [ Assessment] 10/14/16 10/14/16 10/14/16 06:46 07:00 08:00 Temperature 98.4 F Pulse Rate 110 H 112 H 113 H Pulse Rate [ 124 H From Monitor] Respiratory 23 29 H Rate Respiratory Rate [ Generalized] Blood Pressure 172/100 159/96 189/109 O2 Sat by Pulse 100 100 Oximetry O2 Sat by Pulse Oximetry [ Assessment] 10/14/16 10/14/16 10/14/16 08:30 08:43 08:46 Temperature Pulse Rate 120 H 114 H 116 H Pulse Rate [ From Monitor] Respiratory 25 H 29 H Rate Respiratory Rate [ Generalized] Blood Pressure 186/112 186/112 186/112 O2 Sat by Pulse 100 100 Oximetry O2 Sat by Pulse Oximetry [ Assessment] 10/14/16 10/14/16 10/14/16 08:55 09:00 09:12 Temperature Pulse Rate 99 H 101 H 100 H Pulse Rate [ From Monitor] Respiratory 40 H 38 H Rate Respiratory Rate [ Generalized] Blood Pressure 189/108 193/108 193/108 O2 Sat by Pulse 100 100 100 Oximetry O2 Sat by Pulse 100 Oximetry [ Assessment] 10/14/16 10/14/16 10/14/16 09:16 09:30 09:46 Temperature Pulse Rate 108 H 112 H 112 H Pulse Rate [ From Monitor] Respiratory 45 H 29 H 45 H Rate Respiratory Rate [ Generalized] Blood Pressure 193/108 202/116 203/116 O2 Sat by Pulse 100 100 100 Oximetry O2 Sat by Pulse Oximetry [ Assessment] 10/14/16 10/14/16 10/14/16 09:54 09:59 10:00 Temperature Pulse Rate 113 H 111 H 112 H Pulse Rate [ From Monitor] Respiratory 48 H 50 H Rate Respiratory 24 Rate [ Generalized] Blood Pressure 203/116 198/118 198/118 O2 Sat by Pulse 99 100 Oximetry O2 Sat by Pulse Oximetry [ Assessment] 10/14/16 10/14/16 10/14/16 10:07 10:16 10:30 Temperature Pulse Rate 111 H 107 H 109 H Pulse Rate [ From Monitor] Respiratory 24 26 H Rate Respiratory Rate [ Generalized] Blood Pressure 198/118 198/118 198/118 O2 Sat by Pulse 100 99 99 Oximetry O2 Sat by Pulse Oximetry [ Assessment] 10/14/16 10/14/16 10/14/16 10:46 11:00 11:16 Temperature Pulse Rate 109 H 114 H 110 H Pulse Rate [ From Monitor] Respiratory 22 24 25 H Rate Respiratory Rate [ Generalized] Blood Pressure 148/81 173/105 173/105 O2 Sat by Pulse 99 99 99 Oximetry O2 Sat by Pulse Oximetry [ Assessment] 10/14/16 12:00 Temperature 98.1 F Pulse Rate Pulse Rate [ From Monitor] Respiratory Rate Respiratory Rate [ Generalized] Blood Pressure O2 Sat by Pulse Oximetry O2 Sat by Pulse Oximetry [ Assessment] Constitutional: no acute distress, other (grimaces with moving) Eyes: non-icteric, other (tracheostomy tube in midline of neck) ENT: oropharynx moist Neck: supple, no lymphadenopathy Effort: mildly labored Ascultation: Bilateral: clear, diminished breath sounds (bases), rales, rhonchi (bases) Cardiovascular: regular rate and rhythm Gastrointestinal: hypoactive bowel sounds, soft, non-tender, non-distended Integumentary: other (erythema to skin of back with some healing areas; no obvious TEN's features) Extremities: no cyanosis, no edema, pulses normal, no ischemia or petechiae Neurologic: pupils equal and round, other (sedated) Psychiatric: other (unable to assess) CBC and BMP: 10/16/16 06:25 10/16/16 06:25 ABG, PT/INR, D-dimer: ABG POC ABG pH 7.437 (7.35-7.45) 10/08/16 12:49 POC ABG pCO2 28.2 (35-45) L 10/08/16 12:49 POC ABG pO2 111 (80-105) H 10/08/16 12:49 POC ABG HCO3 19.0 10/08/16 12:49 POC ABG Total CO2 20 10/08/16 12:49 POC ABG O2 Sat 99 10/08/16 12:49 PT/INR, D-dimer PT 19.0 Sec. (12.2-14.9) H 10/09/16 03:45 INR 1.51 (0.87-1.13) H 10/09/16 03:45 Abnormal lab findings: Abnormal Labs 09/03/16 09/03/16 09/03/16 12:12 15:07 16:20 WBC RBC Hgb Hct MCV MCH MCHC RDW Plt Count Lymph % (Auto) [place] % (Auto) Lymph # [place] # Seg Neutrophils % Seg Neuts % (Manual) Lymphocytes % (Manual) Monocytes % (Manual) Eosinophils % (Manual) Basophils % (Manual) Nucleated RBC % Seg Neutrophils # Seg Neutrophils # Man Lymphocytes # (Manual) Monocytes # (Manual) Eosinophils # (Manual) PT INR Fibrinogen dRVVT Confirm Interp Factor V Activity POC ABG pH 7.452 H POC ABG pCO2 POC ABG pO2 Sodium Potassium Chloride Carbon Dioxide BUN Creatinine Glucose POC Glucose 178 H Lactic Acid Calcium Phosphorus 2.20 L Magnesium 1.60 L Direct Bilirubin ALT Alkaline Phosphatase Troponin T C-Reactive Protein Total Protein Albumin Triglycerides Cholesterol LDL Cholesterol Direct HDL Cholesterol Urine WBC (Auto) Urine Creatinine Urine Total Protein Vancomycin Trough Rheumatoid Factor Complement C4 Miscellaneous Test Crossmatch 09/03/16 09/03/16 09/03/16 17:57 17:58 23:50 WBC RBC Hgb Hct MCV MCH MCHC RDW Plt Count Lymph % (Auto) [place] % (Auto) Lymph # [place] # Seg Neutrophils % Seg Neuts % (Manual) Lymphocytes % (Manual) Monocytes % (Manual) Eosinophils % (Manual) Basophils % (Manual) Nucleated RBC % Seg Neutrophils # Seg Neutrophils # Man Lymphocytes # (Manual) Monocytes # (Manual) Eosinophils # (Manual) PT INR Fibrinogen dRVVT Confirm Interp Factor V Activity POC ABG pH POC ABG pCO2 POC ABG pO2 Sodium Potassium Chloride Carbon Dioxide BUN Creatinine Glucose POC Glucose 162 H 145 H Lactic Acid Calcium Phosphorus 2.30 L Magnesium Direct Bilirubin ALT Alkaline Phosphatase Troponin T C-Reactive Protein Total Protein Albumin Triglycerides Cholesterol LDL Cholesterol Direct HDL Cholesterol Urine WBC (Auto) Urine Creatinine Urine Total Protein Vancomycin Trough Rheumatoid Factor Complement C4 Miscellaneous Test Crossmatch 09/04/16 09/04/16 09/04/16 03:31 03:31 05:42 WBC RBC Hgb 9.7 L D Hct MCV 72 L MCH 23 L MCHC RDW 17.5 H Plt Count Lymph % (Auto) 11.1 L [place] % (Auto) Lymph # [place] # Seg Neutrophils % 84.3 H Seg Neuts % (Manual) Lymphocytes % (Manual) Monocytes % (Manual) Eosinophils % (Manual) Basophils % (Manual) Nucleated RBC % Seg Neutrophils # 8.9 H Seg Neutrophils # Man Lymphocytes # (Manual) Monocytes # (Manual) Eosinophils # (Manual) PT INR Fibrinogen dRVVT Confirm Interp Factor V Activity POC ABG pH POC ABG pCO2 POC ABG pO2 Sodium 135 L Potassium 2.9 L* Chloride 97.2 L Carbon Dioxide 19 L BUN Creatinine 1.7 H Glucose 170 H POC Glucose 152 H Lactic Acid Calcium Phosphorus Magnesium Direct Bilirubin ALT Alkaline Phosphatase Troponin T C-Reactive Protein Total Protein Albumin Triglycerides 160 H Cholesterol LDL Cholesterol Direct HDL Cholesterol 31 L Urine WBC (Auto) Urine Creatinine Urine Total Protein Vancomycin Trough Rheumatoid Factor Complement C4 Miscellaneous Test Crossmatch 09/04/16 09/04/16 09/04/16 11:34 17:46 23:29 WBC RBC Hgb Hct MCV MCH MCHC RDW Plt Count Lymph % (Auto) [place] % (Auto) Lymph # [place] # Seg Neutrophils % Seg Neuts % (Manual) Lymphocytes % (Manual) Monocytes % (Manual) Eosinophils % (Manual) Basophils % (Manual) Nucleated RBC % Seg Neutrophils # Seg Neutrophils # Man Lymphocytes # (Manual) Monocytes # (Manual) Eosinophils # (Manual) PT INR Fibrinogen dRVVT Confirm Interp Factor V Activity POC ABG pH POC ABG pCO2 POC ABG pO2 Sodium Potassium Chloride Carbon Dioxide BUN Creatinine Glucose POC Glucose 165 H 210 H 139 H Lactic Acid Calcium Phosphorus Magnesium Direct Bilirubin ALT Alkaline Phosphatase Troponin T C-Reactive Protein Total Protein Albumin Triglycerides Cholesterol LDL Cholesterol Direct HDL Cholesterol Urine WBC (Auto) Urine Creatinine Urine Total Protein Vancomycin Trough Rheumatoid Factor Complement C4 Miscellaneous Test Crossmatch 09/05/16 09/05/16 09/05/16 04:05 04:05 05:38 WBC RBC Hgb Hct MCV 76 L D MCH 23 L MCHC RDW 17.8 H Plt Count Lymph % (Auto) [place] % (Auto) Lymph # [place] # Seg Neutrophils % Seg Neuts % (Manual) Lymphocytes % (Manual) Monocytes % (Manual) Eosinophils % (Manual) Basophils % (Manual) Nucleated RBC % Seg Neutrophils # Seg Neutrophils # Man Lymphocytes # (Manual) Monocytes # (Manual) Eosinophils # (Manual) PT INR Fibrinogen dRVVT Confirm Interp Factor V Activity POC ABG pH POC ABG pCO2 POC ABG pO2 Sodium 134 L Potassium Chloride Carbon Dioxide 18 L BUN Creatinine 1.8 H Glucose 192 H POC Glucose 175 H Lactic Acid Calcium Phosphorus Magnesium Direct Bilirubin ALT Alkaline Phosphatase Troponin T C-Reactive Protein Total Protein Albumin Triglycerides Cholesterol LDL Cholesterol Direct HDL Cholesterol Urine WBC (Auto) Urine Creatinine Urine Total Protein Vancomycin Trough Rheumatoid Factor Complement C4 Miscellaneous Test Crossmatch 09/05/16 09/05/16 09/05/16 11:38 17:48 23:22 WBC RBC Hgb Hct MCV MCH MCHC RDW Plt Count Lymph % (Auto) [place] % (Auto) Lymph # [place] # Seg Neutrophils % Seg Neuts % (Manual) Lymphocytes % (Manual) Monocytes % (Manual) Eosinophils % (Manual) Basophils % (Manual) Nucleated RBC % Seg Neutrophils # Seg Neutrophils # Man Lymphocytes # (Manual) Monocytes # (Manual) Eosinophils # (Manual) PT INR Fibrinogen dRVVT Confirm Interp Factor V Activity POC ABG pH POC ABG pCO2 POC ABG pO2 Sodium Potassium Chloride Carbon Dioxide BUN Creatinine Glucose POC Glucose 164 H 186 H 195 H Lactic Acid Calcium Phosphorus Magnesium Direct Bilirubin ALT Alkaline Phosphatase Troponin T C-Reactive Protein Total Protein Albumin Triglycerides Cholesterol LDL Cholesterol Direct HDL Cholesterol Urine WBC (Auto) Urine Creatinine Urine Total Protein Vancomycin Trough Rheumatoid Factor Complement C4 Miscellaneous Test Crossmatch 09/06/16 09/06/16 09/06/16 04:12 05:59 07:32 WBC RBC Hgb Hct MCV MCH MCHC RDW Plt Count Lymph % (Auto) [place] % (Auto) Lymph # [place] # Seg Neutrophils % Seg Neuts % (Manual) Lymphocytes % (Manual) Monocytes % (Manual) Eosinophils % (Manual) Basophils % (Manual) Nucleated RBC % Seg Neutrophils # Seg Neutrophils # Man Lymphocytes # (Manual) Monocytes # (Manual) Eosinophils # (Manual) PT INR Fibrinogen dRVVT Confirm Interp Factor V Activity POC ABG pH 7.514 H POC ABG pCO2 29.1 L POC ABG pO2 72 L Sodium 133 L Potassium 3.4 L Chloride 94.9 L Carbon Dioxide 19 L BUN 30 H Creatinine 2.1 H Glucose 139 H POC Glucose 146 H Lactic Acid Calcium Phosphorus Magnesium Direct Bilirubin ALT Alkaline Phosphatase Troponin T C-Reactive Protein Total Protein Albumin Triglycerides Cholesterol LDL Cholesterol Direct HDL Cholesterol Urine WBC (Auto) Urine Creatinine Urine Total Protein Vancomycin Trough Rheumatoid Factor Complement C4 Miscellaneous Test Crossmatch 09/06/16 09/06/16 09/06/16 11:57 17:58 19:02 WBC RBC Hgb Hct MCV MCH MCHC RDW Plt Count Lymph % (Auto) [place] % (Auto) Lymph # [place] # Seg Neutrophils % Seg Neuts % (Manual) Lymphocytes % (Manual) Monocytes % (Manual) Eosinophils % (Manual) Basophils % (Manual) Nucleated RBC % Seg Neutrophils # Seg Neutrophils # Man Lymphocytes # (Manual) Monocytes # (Manual) Eosinophils # (Manual) PT INR Fibrinogen dRVVT Confirm Interp Factor V Activity POC ABG pH 7.465 H POC ABG pCO2 32.0 L POC ABG pO2 Sodium Potassium Chloride Carbon Dioxide BUN Creatinine Glucose POC Glucose 165 H 160 H Lactic Acid Calcium Phosphorus Magnesium Direct Bilirubin ALT Alkaline Phosphatase Troponin T C-Reactive Protein Total Protein Albumin Triglycerides Cholesterol LDL Cholesterol Direct HDL Cholesterol Urine WBC (Auto) Urine Creatinine Urine Total Protein Vancomycin Trough Rheumatoid Factor Complement C4 Miscellaneous Test Crossmatch 0709/07/16 09/07/16 23:45 02:47 02:47 WBC RBC Hgb Hct MCV MCH MCHC RDW Plt Count Lymph % (Auto) [place] % (Auto) Lymph # [place] # Seg Neutrophils % Seg Neuts % (Manual) Lymphocytes % (Manual) Monocytes % (Manual) Eosinophils % (Manual) Basophils % (Manual) Nucleated RBC % Seg Neutrophils # Seg Neutrophils # Man Lymphocytes # (Manual) Monocytes # (Manual) Eosinophils # (Manual) PT INR Fibrinogen dRVVT Confirm Interp Factor V Activity POC ABG pH POC ABG pCO2 POC ABG pO2 Sodium Potassium Chloride Carbon Dioxide BUN Creatinine Glucose POC Glucose 204 H Lactic Acid Calcium Phosphorus Magnesium Direct Bilirubin ALT Alkaline Phosphatase Troponin T C-Reactive Protein Total Protein Albumin Triglycerides Cholesterol LDL Cholesterol Direct HDL Cholesterol Urine WBC (Auto) 68.0 H Urine Creatinine 106.1 H Urine Total Protein Vancomycin Trough Rheumatoid Factor Complement C4 Miscellaneous Test Crossmatch 09/07/16 09/07/16 09/07/16 04:50 06:19 06:39 WBC RBC Hgb Hct MCV MCH MCHC RDW Plt Count Lymph % (Auto) [place] % (Auto) Lymph # [place] # Seg Neutrophils % Seg Neuts % (Manual) Lymphocytes % (Manual) Monocytes % (Manual) Eosinophils % (Manual) Basophils % (Manual) Nucleated RBC % Seg Neutrophils # Seg Neutrophils # Man Lymphocytes # (Manual) Monocytes # (Manual) Eosinophils # (Manual) PT INR Fibrinogen dRVVT Confirm Interp Factor V Activity POC ABG pH 7.457 H POC ABG pCO2 32.1 L POC ABG pO2 76 L Sodium 132 L Potassium Chloride 94.7 L Carbon Dioxide BUN 53 H Creatinine 2.9 H Glucose 151 H POC Glucose 149 H Lactic Acid Calcium Phosphorus Magnesium Direct Bilirubin ALT Alkaline Phosphatase Troponin T C-Reactive Protein Total Protein Albumin Triglycerides Cholesterol LDL Cholesterol Direct HDL Cholesterol Urine WBC (Auto) Urine Creatinine Urine Total Protein Vancomycin Trough Rheumatoid Factor Complement C4 Miscellaneous Test Crossmatch 09/07/16 09/07/16 09/07/16 09:20 11:43 11:43 WBC 19.4 H RBC Hgb 8.3 L Hct 26.4 L D MCV 72 L D MCH 22 L MCHC RDW 17.9 H Plt Count Lymph % (Auto) 8.5 L [place] % (Auto) Lymph # [place] # 1.0 H Seg Neutrophils % 85.8 H Seg Neuts % (Manual) Lymphocytes % (Manual) Monocytes % (Manual) Eosinophils % (Manual) Basophils % (Manual) Nucleated RBC % Seg Neutrophils # 16.6 H Seg Neutrophils # Man Lymphocytes # (Manual) Monocytes # (Manual) Eosinophils # (Manual) PT INR Fibrinogen dRVVT Confirm Interp Factor V Activity POC ABG pH POC ABG pCO2 POC ABG pO2 Sodium 134 L Potassium Chloride 97.2 L Carbon Dioxide 20 L BUN 58 H Creatinine 2.9 H Glucose 147 H POC Glucose Lactic Acid Calcium Phosphorus 2.40 L Magnesium 2.40 H Direct Bilirubin ALT Alkaline Phosphatase Troponin T C-Reactive Protein Total Protein 5.8 L Albumin 2.2 L Triglycerides Cholesterol LDL Cholesterol Direct HDL Cholesterol Urine WBC (Auto) Urine Creatinine Urine Total Protein Vancomycin Trough Rheumatoid Factor Complement C4 58 H Miscellaneous Test Crossmatch 09/07/16 09/07/16 09/07/16 11:50 16:00 17:31 WBC RBC Hgb Hct MCV MCH MCHC RDW Plt Count Lymph % (Auto) [place] % (Auto) Lymph # [place] # Seg Neutrophils % Seg Neuts % (Manual) Lymphocytes % (Manual) Monocytes % (Manual) Eosinophils % (Manual) Basophils % (Manual) Nucleated RBC % Seg Neutrophils # Seg Neutrophils # Man Lymphocytes # (Manual) Monocytes # (Manual) Eosinophils # (Manual) PT INR Fibrinogen dRVVT Confirm Interp Factor V Activity POC ABG pH POC ABG pCO2 POC ABG pO2 158 H Sodium Potassium Chloride Carbon Dioxide BUN Creatinine Glucose POC Glucose 175 H Lactic Acid Calcium Phosphorus Magnesium Direct Bilirubin ALT Alkaline Phosphatase Troponin T C-Reactive Protein Total Protein Albumin Triglycerides Cholesterol LDL Cholesterol Direct HDL Cholesterol Urine WBC (Auto) Urine Creatinine 66.3 H Urine Total Protein Vancomycin Trough Rheumatoid Factor Complement C4 Miscellaneous Test Crossmatch 09/07/16 09/08/16 09/08/16 23:50 05:46 06:18 WBC 17.8 H RBC 3.58 L Hgb 8.1 L Hct 25.5 L MCV 71 L MCH 23 L MCHC RDW 18.4 H Plt Count Lymph % (Auto) [place] % (Auto) Lymph # [place] # Seg Neutrophils % Seg Neuts % (Manual) 92.0 H Lymphocytes % (Manual) 6.0 L Monocytes % (Manual) Eosinophils % (Manual) Basophils % (Manual) Nucleated RBC % Seg Neutrophils # Seg Neutrophils # Man 16.4 H Lymphocytes # (Manual) 1.1 L Monocytes # (Manual) Eosinophils # (Manual) PT INR Fibrinogen dRVVT Confirm Interp Factor V Activity POC ABG pH POC ABG pCO2 34.3 L POC ABG pO2 71 L Sodium Potassium Chloride Carbon Dioxide BUN Creatinine Glucose POC Glucose 216 H Lactic Acid Calcium Phosphorus Magnesium Direct Bilirubin ALT Alkaline Phosphatase Troponin T C-Reactive Protein Total Protein Albumin Triglycerides Cholesterol LDL Cholesterol Direct HDL Cholesterol Urine WBC (Auto) Urine Creatinine Urine Total Protein Vancomycin Trough Rheumatoid Factor Complement C4 Miscellaneous Test Crossmatch 09/08/16 09/08/16 09/08/16 06:18 06:51 10:55 WBC RBC Hgb Hct MCV MCH MCHC RDW Plt Count Lymph % (Auto) [place] % (Auto) Lymph # [place] # Seg Neutrophils % Seg Neuts % (Manual) Lymphocytes % (Manual) Monocytes % (Manual) Eosinophils % (Manual) Basophils % (Manual) Nucleated RBC % Seg Neutrophils # Seg Neutrophils # Man Lymphocytes # (Manual) Monocytes # (Manual) Eosinophils # (Manual) PT INR Fibrinogen dRVVT Confirm Interp Factor V Activity POC ABG pH POC ABG pCO2 POC ABG pO2 Sodium 133 L Potassium Chloride 96.9 L Carbon Dioxide 20 L BUN 63 H Creatinine 2.7 H Glucose 195 H POC Glucose 204 H 169 H Lactic Acid Calcium Phosphorus Magnesium Direct Bilirubin ALT Alkaline Phosphatase Troponin T C-Reactive Protein Total Protein Albumin Triglycerides Cholesterol LDL Cholesterol Direct HDL Cholesterol Urine WBC (Auto) Urine Creatinine Urine Total Protein Vancomycin Trough Rheumatoid Factor Complement C4 Miscellaneous Test Crossmatch 09/08/16 09/08/16 09/08/16 11:48 11:48 11:48 WBC RBC Hgb Hct MCV MCH MCHC RDW Plt Count Lymph % (Auto) [place] % (Auto) Lymph # [place] # Seg Neutrophils % Seg Neuts % (Manual) Lymphocytes % (Manual) Monocytes % (Manual) Eosinophils % (Manual) Basophils % (Manual) Nucleated RBC % Seg Neutrophils # Seg Neutrophils # Man Lymphocytes # (Manual) Monocytes # (Manual) Eosinophils # (Manual) PT INR Fibrinogen 750 H dRVVT Confirm Interp Factor V Activity POC ABG pH POC ABG pCO2 POC ABG pO2 Sodium Potassium Chloride Carbon Dioxide BUN Creatinine Glucose POC Glucose Lactic Acid Calcium Phosphorus Magnesium Direct Bilirubin ALT Alkaline Phosphatase Troponin T C-Reactive Protein 15.70 H Total Protein Albumin Triglycerides Cholesterol LDL Cholesterol Direct HDL Cholesterol Urine WBC (Auto) Urine Creatinine Urine Total Protein Vancomycin Trough Rheumatoid Factor 24 H Complement C4 Miscellaneous Test Crossmatch 09/08/16 09/08/16 09/09/16 15:35 18:25 00:24 WBC RBC Hgb Hct MCV MCH MCHC RDW Plt Count Lymph % (Auto) [place] % (Auto) Lymph # [place] # Seg Neutrophils % Seg Neuts % (Manual) Lymphocytes % (Manual) Monocytes % (Manual) Eosinophils % (Manual) Basophils % (Manual) Nucleated RBC % Seg Neutrophils # Seg Neutrophils # Man Lymphocytes # (Manual) Monocytes # (Manual) Eosinophils # (Manual) PT INR Fibrinogen dRVVT Confirm Interp Factor V Activity 182 H POC ABG pH POC ABG pCO2 POC ABG pO2 Sodium Potassium Chloride Carbon Dioxide BUN Creatinine Glucose POC Glucose 184 H 216 H Lactic Acid Calcium Phosphorus Magnesium Direct Bilirubin ALT Alkaline Phosphatase Troponin T C-Reactive Protein Total Protein Albumin Triglycerides Cholesterol LDL Cholesterol Direct HDL Cholesterol Urine WBC (Auto) Urine Creatinine Urine Total Protein Vancomycin Trough Rheumatoid Factor Complement C4 Miscellaneous Test Crossmatch 09/09/16 09/09/16 09/09/16 03:00 03:00 04:04 WBC 27.9 H RBC Hgb 8.7 L Hct 28.1 L MCV 72 L MCH 22 L MCHC RDW 18.4 H Plt Count 485 H Lymph % (Auto) [place] % (Auto) Lymph # [place] # Seg Neutrophils % Seg Neuts % (Manual) 77.0 H Lymphocytes % (Manual) 9.0 L Monocytes % (Manual) Eosinophils % (Manual) Basophils % (Manual) Nucleated RBC % Seg Neutrophils # Seg Neutrophils # Man 21.5 H Lymphocytes # (Manual) Monocytes # (Manual) 2.0 H Eosinophils # (Manual) PT INR Fibrinogen dRVVT Confirm Interp Factor V Activity POC ABG pH POC ABG pCO2 POC ABG pO2 121 H Sodium 135 L Potassium Chloride 96.3 L Carbon Dioxide 21 L BUN 83 H Creatinine 3.0 H Glucose 135 H POC Glucose Lactic Acid Calcium Phosphorus Magnesium Direct Bilirubin ALT Alkaline Phosphatase Troponin T C-Reactive Protein Total Protein Albumin Triglycerides Cholesterol LDL Cholesterol Direct HDL Cholesterol Urine WBC (Auto) Urine Creatinine Urine Total Protein Vancomycin Trough Rheumatoid Factor Complement C4 Miscellaneous Test Crossmatch 09/09/16 09/09/16 09/09/16 05:41 11:55 14:13 WBC RBC Hgb Hct MCV MCH MCHC RDW Plt Count Lymph % (Auto) [place] % (Auto) Lymph # [place] # Seg Neutrophils % Seg Neuts % (Manual) Lymphocytes % (Manual) Monocytes % (Manual) Eosinophils % (Manual) Basophils % (Manual) Nucleated RBC % Seg Neutrophils # Seg Neutrophils # Man Lymphocytes # (Manual) Monocytes # (Manual) Eosinophils # (Manual) PT INR Fibrinogen dRVVT Confirm Interp Factor V Activity POC ABG pH POC ABG pCO2 POC ABG pO2 Sodium Potassium Chloride Carbon Dioxide BUN Creatinine Glucose POC Glucose 155 H 186 H Lactic Acid Calcium Phosphorus Magnesium Direct Bilirubin ALT Alkaline Phosphatase Troponin T C-Reactive Protein Total Protein Albumin Triglycerides Cholesterol LDL Cholesterol Direct HDL Cholesterol Urine WBC (Auto) 25.0 H Urine Creatinine Urine Total Protein Vancomycin Trough Rheumatoid Factor Complement C4 Miscellaneous Test Crossmatch 09/09/16 09/09/16 09/10/16 17:33 23:13 05:09 WBC RBC Hgb Hct MCV MCH MCHC RDW Plt Count Lymph % (Auto) [place] % (Auto) Lymph # [place] # Seg Neutrophils % Seg Neuts % (Manual) Lymphocytes % (Manual) Monocytes % (Manual) Eosinophils % (Manual) Basophils % (Manual) Nucleated RBC % Seg Neutrophils # Seg Neutrophils # Man Lymphocytes # (Manual) Monocytes # (Manual) Eosinophils # (Manual) PT INR Fibrinogen dRVVT Confirm Interp Factor V Activity POC ABG pH POC ABG pCO2 POC ABG pO2 74 L Sodium Potassium Chloride Carbon Dioxide BUN Creatinine Glucose POC Glucose 211 H 215 H Lactic Acid Calcium Phosphorus Magnesium Direct Bilirubin ALT Alkaline Phosphatase Troponin T C-Reactive Protein Total Protein Albumin Triglycerides Cholesterol LDL Cholesterol Direct HDL Cholesterol Urine WBC (Auto) Urine Creatinine Urine Total Protein Vancomycin Trough Rheumatoid Factor Complement C4 Miscellaneous Test Crossmatch 09/10/16 09/10/16 09/10/16 05:17 05:17 11:31 WBC 15.8 H RBC 3.25 L Hgb 7.3 L Hct 22.9 L MCV 71 L MCH 23 L MCHC RDW 18.4 H Plt Count Lymph % (Auto) [place] % (Auto) Lymph # [place] # Seg Neutrophils % Seg Neuts % (Manual) 91.0 H Lymphocytes % (Manual) 4.0 L Monocytes % (Manual) Eosinophils % (Manual) Basophils % (Manual) Nucleated RBC % Seg Neutrophils # Seg Neutrophils # Man 14.4 H Lymphocytes # (Manual) 0.6 L Monocytes # (Manual) Eosinophils # (Manual) PT INR Fibrinogen dRVVT Confirm Interp Factor V Activity POC ABG pH POC ABG pCO2 POC ABG pO2 Sodium Potassium Chloride Carbon Dioxide 21 L BUN 93 H Creatinine 2.9 H Glucose 146 H POC Glucose 188 H Lactic Acid Calcium 8.1 L Phosphorus Magnesium Direct Bilirubin ALT Alkaline Phosphatase Troponin T C-Reactive Protein Total Protein Albumin Triglycerides Cholesterol LDL Cholesterol Direct HDL Cholesterol Urine WBC (Auto) Urine Creatinine Urine Total Protein Vancomycin Trough Rheumatoid Factor Complement C4 Miscellaneous Test Crossmatch 09/10/16 09/10/16 09/10/16 13:17 17:20 23:32 WBC RBC Hgb Hct MCV MCH MCHC RDW Plt Count Lymph % (Auto) [place] % (Auto) Lymph # [place] # Seg Neutrophils % Seg Neuts % (Manual) Lymphocytes % (Manual) Monocytes % (Manual) Eosinophils % (Manual) Basophils % (Manual) Nucleated RBC % Seg Neutrophils # Seg Neutrophils # Man Lymphocytes # (Manual) Monocytes # (Manual) Eosinophils # (Manual) PT INR Fibrinogen dRVVT Confirm Interp Factor V Activity POC ABG pH POC ABG pCO2 POC ABG pO2 Sodium Potassium Chloride Carbon Dioxide BUN Creatinine Glucose POC Glucose 199 H 186 H Lactic Acid Calcium Phosphorus Magnesium Direct Bilirubin ALT Alkaline Phosphatase Troponin T C-Reactive Protein Total Protein Albumin Triglycerides Cholesterol LDL Cholesterol Direct HDL Cholesterol Urine WBC (Auto) Urine Creatinine Urine Total Protein Vancomycin Trough Rheumatoid Factor Complement C4 Miscellaneous Test Crossmatch See Detail 09/11/16 09/11/16 09/11/16 05:10 05:10 05:17 WBC 28.4 H RBC Hgb 9.2 L Hct 29.3 L D MCV 73 L MCH 23 L MCHC RDW 18.9 H Plt Count 452 H Lymph % (Auto) [place] % (Auto) Lymph # [place] # Seg Neutrophils % Seg Neuts % (Manual) 89.5 H Lymphocytes % (Manual) 2.0 L Monocytes % (Manual) Eosinophils % (Manual) Basophils % (Manual) Nucleated RBC % Seg Neutrophils # Seg Neutrophils # Man 25.4 H Lymphocytes # (Manual) 0.6 L Monocytes # (Manual) 1.3 H Eosinophils # (Manual) PT INR Fibrinogen dRVVT Confirm Interp Factor V Activity POC ABG pH POC ABG pCO2 POC ABG pO2 Sodium 136 L Potassium Chloride Carbon Dioxide 18 L BUN 107 H Creatinine 2.6 H Glucose 187 H POC Glucose 230 H Lactic Acid Calcium 8.3 L Phosphorus Magnesium Direct Bilirubin ALT Alkaline Phosphatase Troponin T C-Reactive Protein Total Protein Albumin Triglycerides Cholesterol LDL Cholesterol Direct HDL Cholesterol Urine WBC (Auto) Urine Creatinine Urine Total Protein Vancomycin Trough Rheumatoid Factor Complement C4 Miscellaneous Test Crossmatch 09/11/16 09/11/16 09/11/16 05:55 12:02 17:32 WBC RBC Hgb Hct MCV MCH MCHC RDW Plt Count Lymph % (Auto) [place] % (Auto) Lymph # [place] # Seg Neutrophils % Seg Neuts % (Manual) Lymphocytes % (Manual) Monocytes % (Manual) Eosinophils % (Manual) Basophils % (Manual) Nucleated RBC % Seg Neutrophils # Seg Neutrophils # Man Lymphocytes # (Manual) Monocytes # (Manual) Eosinophils # (Manual) PT INR Fibrinogen dRVVT Confirm Interp Factor V Activity POC ABG pH POC ABG pCO2 33.8 L POC ABG pO2 Sodium Potassium Chloride Carbon Dioxide BUN Creatinine Glucose POC Glucose 191 H 239 H Lactic Acid Calcium Phosphorus Magnesium Direct Bilirubin ALT Alkaline Phosphatase Troponin T C-Reactive Protein Total Protein Albumin Triglycerides Cholesterol LDL Cholesterol Direct HDL Cholesterol Urine WBC (Auto) Urine Creatinine Urine Total Protein Vancomycin Trough Rheumatoid Factor Complement C4 Miscellaneous Test Crossmatch 09/11/16 09/12/16 09/12/16 23:52 05:09 05:32 WBC RBC Hgb Hct MCV MCH MCHC RDW Plt Count Lymph % (Auto) [place] % (Auto) Lymph # [place] # Seg Neutrophils % Seg Neuts % (Manual) Lymphocytes % (Manual) Monocytes % (Manual) Eosinophils % (Manual) Basophils % (Manual) Nucleated RBC % Seg Neutrophils # Seg Neutrophils # Man Lymphocytes # (Manual) Monocytes # (Manual) Eosinophils # (Manual) PT INR Fibrinogen dRVVT Confirm Interp Factor V Activity POC ABG pH POC ABG pCO2 34.6 L POC ABG pO2 Sodium Potassium Chloride Carbon Dioxide BUN Creatinine Glucose POC Glucose 265 H 184 H Lactic Acid Calcium Phosphorus Magnesium Direct Bilirubin ALT Alkaline Phosphatase Troponin T C-Reactive Protein Total Protein Albumin Triglycerides Cholesterol LDL Cholesterol Direct HDL Cholesterol Urine WBC (Auto) Urine Creatinine Urine Total Protein Vancomycin Trough Rheumatoid Factor Complement C4 Miscellaneous Test Crossmatch 09/12/16 09/12/16 09/12/16 06:45 06:45 07:22 WBC 31.7 H RBC 3.54 L Hgb 8.3 L Hct 25.9 L MCV 73 L MCH 23 L MCHC RDW 18.9 H Plt Count Lymph % (Auto) [place] % (Auto) Lymph # [place] # Seg Neutrophils % Seg Neuts % (Manual) 88.5 H Lymphocytes % (Manual) 4.5 L Monocytes % (Manual) Eosinophils % (Manual) Basophils % (Manual) Nucleated RBC % Seg Neutrophils # Seg Neutrophils # Man 28.1 H Lymphocytes # (Manual) Monocytes # (Manual) 1.0 H Eosinophils # (Manual) PT INR Fibrinogen dRVVT Confirm Interp Factor V Activity POC ABG pH POC ABG pCO2 POC ABG pO2 Sodium Potassium Chloride Carbon Dioxide 20 L BUN 115 H Creatinine 2.7 H Glucose 165 H POC Glucose Lactic Acid Calcium 8.0 L Phosphorus Magnesium Direct Bilirubin ALT Alkaline Phosphatase Troponin T C-Reactive Protein Total Protein Albumin Triglycerides 217 H Cholesterol LDL Cholesterol Direct HDL Cholesterol Urine WBC (Auto) Urine Creatinine Urine Total Protein Vancomycin Trough Rheumatoid Factor Complement C4 Miscellaneous Test Crossmatch 09/12/16 09/12/16 09/12/16 07:22 09:59 12:21 WBC RBC Hgb Hct MCV MCH MCHC RDW Plt Count Lymph % (Auto) [place] % (Auto) Lymph # [place] # Seg Neutrophils % Seg Neuts % (Manual) Lymphocytes % (Manual) Monocytes % (Manual) Eosinophils % (Manual) Basophils % (Manual) Nucleated RBC % Seg Neutrophils # Seg Neutrophils # Man Lymphocytes # (Manual) Monocytes # (Manual) Eosinophils # (Manual) PT INR Fibrinogen dRVVT Confirm Interp Positive H Factor V Activity POC ABG pH POC ABG pCO2 POC ABG pO2 Sodium Potassium Chloride Carbon Dioxide BUN Creatinine Glucose POC Glucose 224 H Lactic Acid Calcium Phosphorus Magnesium Direct Bilirubin ALT Alkaline Phosphatase Troponin T C-Reactive Protein 1.70 H Total Protein Albumin Triglycerides Cholesterol LDL Cholesterol Direct HDL Cholesterol Urine WBC (Auto) Urine Creatinine Urine Total Protein Vancomycin Trough Rheumatoid Factor Complement C4 Miscellaneous Test Crossmatch 09/12/16 09/12/16 09/13/16 16:51 23:28 04:00 WBC 45.0 H* RBC Hgb 9.4 L Hct MCV 75 L MCH 23 L MCHC RDW 19.0 H Plt Count 470 H Lymph % (Auto) [place] % (Auto) Lymph # [place] # Seg Neutrophils % Seg Neuts % (Manual) 89.0 H Lymphocytes % (Manual) 5.0 L Monocytes % (Manual) Eosinophils % (Manual) Basophils % (Manual) Nucleated RBC % Seg Neutrophils # Seg Neutrophils # Man 40.1 H Lymphocytes # (Manual) Monocytes # (Manual) Eosinophils # (Manual) PT INR Fibrinogen dRVVT Confirm Interp Factor V Activity POC ABG pH POC ABG pCO2 POC ABG pO2 Sodium Potassium Chloride Carbon Dioxide BUN Creatinine Glucose POC Glucose 169 H 150 H Lactic Acid Calcium Phosphorus Magnesium Direct Bilirubin ALT Alkaline Phosphatase Troponin T C-Reactive Protein Total Protein Albumin Triglycerides Cholesterol LDL Cholesterol Direct HDL Cholesterol Urine WBC (Auto) Urine Creatinine Urine Total Protein Vancomycin Trough Rheumatoid Factor Complement C4 Miscellaneous Test Crossmatch 09/13/16 09/13/16 09/13/16 04:00 11:26 17:31 WBC RBC Hgb Hct MCV MCH MCHC RDW Plt Count Lymph % (Auto) [place] % (Auto) Lymph # [place] # Seg Neutrophils % Seg Neuts % (Manual) Lymphocytes % (Manual) Monocytes % (Manual) Eosinophils % (Manual) Basophils % (Manual) Nucleated RBC % Seg Neutrophils # Seg Neutrophils # Man Lymphocytes # (Manual) Monocytes # (Manual) Eosinophils # (Manual) PT INR Fibrinogen dRVVT Confirm Interp Factor V Activity POC ABG pH POC ABG pCO2 POC ABG pO2 Sodium Potassium Chloride Carbon Dioxide 20 L BUN 116 H Creatinine 3.0 H Glucose 172 H POC Glucose 140 H 183 H Lactic Acid Calcium Phosphorus Magnesium Direct Bilirubin ALT Alkaline Phosphatase Troponin T C-Reactive Protein Total Protein 6.2 L Albumin 2.9 L Triglycerides Cholesterol LDL Cholesterol Direct HDL Cholesterol Urine WBC (Auto) Urine Creatinine Urine Total Protein Vancomycin Trough Rheumatoid Factor Complement C4 Miscellaneous Test Crossmatch 09/13/16 09/14/16 09/14/16 23:23 04:06 04:07 WBC 29.4 H RBC Hgb 8.9 L Hct 27.3 L MCV 75 L MCH 24 L MCHC RDW 19.1 H Plt Count Lymph % (Auto) [place] % (Auto) Lymph # [place] # Seg Neutrophils % Seg Neuts % (Manual) 84.0 H Lymphocytes % (Manual) 6.0 L Monocytes % (Manual) 9.0 H Eosinophils % (Manual) Basophils % (Manual) Nucleated RBC % Seg Neutrophils # Seg Neutrophils # Man 24.7 H Lymphocytes # (Manual) Monocytes # (Manual) 2.6 H Eosinophils # (Manual) PT INR Fibrinogen dRVVT Confirm Interp Factor V Activity POC ABG pH 7.342 L POC ABG pCO2 POC ABG pO2 116 H Sodium Potassium Chloride Carbon Dioxide BUN Creatinine Glucose POC Glucose 154 H Lactic Acid Calcium Phosphorus Magnesium Direct Bilirubin ALT Alkaline Phosphatase Troponin T C-Reactive Protein Total Protein Albumin Triglycerides Cholesterol LDL Cholesterol Direct HDL Cholesterol Urine WBC (Auto) Urine Creatinine Urine Total Protein Vancomycin Trough Rheumatoid Factor Complement C4 Miscellaneous Test Crossmatch 09/14/16 09/14/16 09/14/16 04:07 05:29 12:19 WBC RBC Hgb Hct MCV MCH MCHC RDW Plt Count Lymph % (Auto) [place] % (Auto) Lymph # [place] # Seg Neutrophils % Seg Neuts % (Manual) Lymphocytes % (Manual) Monocytes % (Manual) Eosinophils % (Manual) Basophils % (Manual) Nucleated RBC % Seg Neutrophils # Seg Neutrophils # Man Lymphocytes # (Manual) Monocytes # (Manual) Eosinophils # (Manual) PT INR Fibrinogen dRVVT Confirm Interp Factor V Activity POC ABG pH POC ABG pCO2 POC ABG pO2 Sodium 136 L Potassium Chloride Carbon Dioxide 18 L BUN 121 H Creatinine 2.8 H Glucose 214 H POC Glucose 239 H 181 H Lactic Acid Calcium Phosphorus Magnesium Direct Bilirubin ALT Alkaline Phosphatase Troponin T C-Reactive Protein Total Protein Albumin Triglycerides Cholesterol LDL Cholesterol Direct HDL Cholesterol Urine WBC (Auto) Urine Creatinine Urine Total Protein Vancomycin Trough Rheumatoid Factor Complement C4 Miscellaneous Test Crossmatch 09/14/16 09/14/16 09/15/16 18:12 23:37 05:00 WBC 26.1 H RBC 3.05 L Hgb 7.2 L Hct 22.9 L MCV 75 L MCH 24 L MCHC RDW 19.0 H Plt Count Lymph % (Auto) [place] % (Auto) Lymph # [place] # Seg Neutrophils % Seg Neuts % (Manual) Lymphocytes % (Manual) Monocytes % (Manual) Eosinophils % (Manual) Basophils % (Manual) Nucleated RBC % Seg Neutrophils # Seg Neutrophils # Man Lymphocytes # (Manual) Monocytes # (Manual) Eosinophils # (Manual) PT INR Fibrinogen dRVVT Confirm Interp Factor V Activity POC ABG pH POC ABG pCO2 POC ABG pO2 Sodium Potassium Chloride Carbon Dioxide BUN Creatinine Glucose POC Glucose 266 H 154 H Lactic Acid Calcium Phosphorus Magnesium Direct Bilirubin ALT Alkaline Phosphatase Troponin T C-Reactive Protein Total Protein Albumin Triglycerides Cholesterol LDL Cholesterol Direct HDL Cholesterol Urine WBC (Auto) Urine Creatinine Urine Total Protein Vancomycin Trough Rheumatoid Factor Complement C4 Miscellaneous Test Crossmatch 09/15/16 09/15/16 09/15/16 05:00 05:17 12:45 WBC RBC Hgb Hct MCV MCH MCHC RDW Plt Count Lymph % (Auto) [place] % (Auto) Lymph # [place] # Seg Neutrophils % Seg Neuts % (Manual) Lymphocytes % (Manual) Monocytes % (Manual) Eosinophils % (Manual) Basophils % (Manual) Nucleated RBC % Seg Neutrophils # Seg Neutrophils # Man Lymphocytes # (Manual) Monocytes # (Manual) Eosinophils # (Manual) PT INR Fibrinogen dRVVT Confirm Interp Factor V Activity POC ABG pH POC ABG pCO2 POC ABG pO2 Sodium Potassium 5.2 H Chloride Carbon Dioxide 18 L BUN 139 H Creatinine 3.7 H Glucose 227 H POC Glucose 226 H 244 H Lactic Acid Calcium 8.3 L Phosphorus Magnesium Direct Bilirubin ALT Alkaline Phosphatase Troponin T C-Reactive Protein Total Protein Albumin Triglycerides Cholesterol LDL Cholesterol Direct HDL Cholesterol Urine WBC (Auto) Urine Creatinine Urine Total Protein Vancomycin Trough Rheumatoid Factor Complement C4 Miscellaneous Test Crossmatch 09/15/16 09/15/16 09/15/16 14:32 17:33 23:35 WBC RBC Hgb Hct MCV MCH MCHC RDW Plt Count Lymph % (Auto) [place] % (Auto) Lymph # [place] # Seg Neutrophils % Seg Neuts % (Manual) Lymphocytes % (Manual) Monocytes % (Manual) Eosinophils % (Manual) Basophils % (Manual) Nucleated RBC % Seg Neutrophils # Seg Neutrophils # Man Lymphocytes # (Manual) Monocytes # (Manual) Eosinophils # (Manual) PT INR Fibrinogen dRVVT Confirm Interp Factor V Activity POC ABG pH POC ABG pCO2 27.7 L POC ABG pO2 120 H Sodium Potassium Chloride Carbon Dioxide BUN Creatinine Glucose POC Glucose 232 H 167 H Lactic Acid Calcium Phosphorus Magnesium Direct Bilirubin ALT Alkaline Phosphatase Troponin T C-Reactive Protein Total Protein Albumin Triglycerides Cholesterol LDL Cholesterol Direct HDL Cholesterol Urine WBC (Auto) Urine Creatinine Urine Total Protein Vancomycin Trough Rheumatoid Factor Complement C4 Miscellaneous Test Crossmatch 09/16/16 09/16/16 09/16/16 03:58 10:27 10:27 WBC 19.0 H RBC 2.77 L Hgb 6.5 L Hct 20.9 L MCV 76 L MCH 23 L MCHC RDW 19.3 H Plt Count Lymph % (Auto) 11.0 L [place] % (Auto) Lymph # [place] # 1.1 H Seg Neutrophils % 82.5 H Seg Neuts % (Manual) Lymphocytes % (Manual) Monocytes % (Manual) Eosinophils % (Manual) Basophils % (Manual) Nucleated RBC % Seg Neutrophils # 15.7 H Seg Neutrophils # Man Lymphocytes # (Manual) Monocytes # (Manual) Eosinophils # (Manual) PT INR Fibrinogen dRVVT Confirm Interp Factor V Activity POC ABG pH POC ABG pCO2 POC ABG pO2 Sodium Potassium Chloride 109.3 H Carbon Dioxide 18 L BUN 139 H Creatinine 4.1 H Glucose 144 H POC Glucose 146 H Lactic Acid Calcium 8.1 L Phosphorus Magnesium Direct Bilirubin ALT Alkaline Phosphatase Troponin T C-Reactive Protein Total Protein Albumin Triglycerides Cholesterol LDL Cholesterol Direct HDL Cholesterol Urine WBC (Auto) Urine Creatinine Urine Total Protein Vancomycin Trough Rheumatoid Factor Complement C4 Miscellaneous Test Crossmatch 09/16/16 09/16/16 09/16/16 12:04 12:10 13:55 WBC RBC Hgb Hct MCV MCH MCHC RDW Plt Count Lymph % (Auto) [place] % (Auto) Lymph # [place] # Seg Neutrophils % Seg Neuts % (Manual) Lymphocytes % (Manual) Monocytes % (Manual) Eosinophils % (Manual) Basophils % (Manual) Nucleated RBC % Seg Neutrophils # Seg Neutrophils # Man Lymphocytes # (Manual) Monocytes # (Manual) Eosinophils # (Manual) PT INR Fibrinogen dRVVT Confirm Interp Factor V Activity POC ABG pH POC ABG pCO2 32.9 L POC ABG pO2 Sodium Potassium Chloride Carbon Dioxide BUN Creatinine Glucose POC Glucose 185 H Lactic Acid Calcium Phosphorus Magnesium Direct Bilirubin ALT Alkaline Phosphatase Troponin T C-Reactive Protein Total Protein Albumin Triglycerides Cholesterol LDL Cholesterol Direct HDL Cholesterol Urine WBC (Auto) Urine Creatinine Urine Total Protein Vancomycin Trough Rheumatoid Factor Complement C4 Miscellaneous Test Crossmatch See Detail 09/16/16 09/16/16 09/16/16 17:55 19:19 23:48 WBC RBC Hgb Hct MCV MCH MCHC RDW Plt Count Lymph % (Auto) [place] % (Auto) Lymph # [place] # Seg Neutrophils % Seg Neuts % (Manual) Lymphocytes % (Manual) Monocytes % (Manual) Eosinophils % (Manual) Basophils % (Manual) Nucleated RBC % Seg Neutrophils # Seg Neutrophils # Man Lymphocytes # (Manual) Monocytes # (Manual) Eosinophils # (Manual) PT INR Fibrinogen dRVVT Confirm Interp Factor V Activity POC ABG pH POC ABG pCO2 POC ABG pO2 Sodium Potassium Chloride Carbon Dioxide BUN Creatinine Glucose POC Glucose 222 H 107 H Lactic Acid Calcium Phosphorus Magnesium Direct Bilirubin ALT Alkaline Phosphatase Troponin T C-Reactive Protein Total Protein Albumin Triglycerides Cholesterol LDL Cholesterol Direct HDL Cholesterol Urine WBC (Auto) Urine Creatinine 47.4 H Urine Total Protein 16 H Vancomycin Trough Rheumatoid Factor Complement C4 Miscellaneous Test Crossmatch 09/17/16 09/17/16 09/17/16 03:45 03:45 04:55 WBC 19.6 H RBC 3.41 L Hgb 8.5 L Hct 26.7 L MCV 78 L MCH 25 L MCHC RDW 19.9 H Plt Count Lymph % (Auto) 9.3 L [place] % (Auto) Lymph # [place] # 1.2 H Seg Neutrophils % 83.9 H Seg Neuts % (Manual) Lymphocytes % (Manual) Monocytes % (Manual) Eosinophils % (Manual) Basophils % (Manual) Nucleated RBC % Seg Neutrophils # 16.4 H Seg Neutrophils # Man Lymphocytes # (Manual) Monocytes # (Manual) Eosinophils # (Manual) PT INR Fibrinogen dRVVT Confirm Interp Factor V Activity POC ABG pH POC ABG pCO2 POC ABG pO2 Sodium 146 H Potassium 5.1 H Chloride 110.9 H Carbon Dioxide 16 L BUN 146 H Creatinine 4.0 H Glucose 108 H POC Glucose 133 H Lactic Acid Calcium Phosphorus Magnesium 3.00 H Direct Bilirubin ALT Alkaline Phosphatase Troponin T C-Reactive Protein Total Protein Albumin Triglycerides Cholesterol LDL Cholesterol Direct HDL Cholesterol Urine WBC (Auto) Urine Creatinine Urine Total Protein Vancomycin Trough Rheumatoid Factor Complement C4 Miscellaneous Test Crossmatch 09/17/16 09/17/16 09/17/16 11:15 17:33 23:47 WBC RBC Hgb Hct MCV MCH MCHC RDW Plt Count Lymph % (Auto) [place] % (Auto) Lymph # [place] # Seg Neutrophils % Seg Neuts % (Manual) Lymphocytes % (Manual) Monocytes % (Manual) Eosinophils % (Manual) Basophils % (Manual) Nucleated RBC % Seg Neutrophils # Seg Neutrophils # Man Lymphocytes # (Manual) Monocytes # (Manual) Eosinophils # (Manual) PT INR Fibrinogen dRVVT Confirm Interp Factor V Activity POC ABG pH POC ABG pCO2 POC ABG pO2 Sodium Potassium Chloride Carbon Dioxide BUN Creatinine Glucose POC Glucose 176 H 246 H 148 H Lactic Acid Calcium Phosphorus Magnesium Direct Bilirubin ALT Alkaline Phosphatase Troponin T C-Reactive Protein Total Protein Albumin Triglycerides Cholesterol LDL Cholesterol Direct HDL Cholesterol Urine WBC (Auto) Urine Creatinine Urine Total Protein Vancomycin Trough Rheumatoid Factor Complement C4 Miscellaneous Test Crossmatch 09/18/16 09/18/16 09/18/16 05:33 08:31 08:31 WBC 18.0 H RBC 3.17 L Hgb 9.0 L Hct 25.7 L MCV MCH MCHC 35 H RDW 20.4 H Plt Count Lymph % (Auto) [place] % (Auto) Lymph # [place] # Seg Neutrophils % Seg Neuts % (Manual) Lymphocytes % (Manual) Monocytes % (Manual) Eosinophils % (Manual) Basophils % (Manual) Nucleated RBC % Seg Neutrophils # Seg Neutrophils # Man Lymphocytes # (Manual) Monocytes # (Manual) Eosinophils # (Manual) PT INR Fibrinogen dRVVT Confirm Interp Factor V Activity POC ABG pH POC ABG pCO2 POC ABG pO2 Sodium Potassium Chloride Carbon Dioxide 15 L BUN 124 H Creatinine 3.8 H Glucose POC Glucose 120 H Lactic Acid Calcium 8.1 L Phosphorus Magnesium Direct Bilirubin ALT Alkaline Phosphatase Troponin T C-Reactive Protein Total Protein Albumin Triglycerides Cholesterol LDL Cholesterol Direct HDL Cholesterol Urine WBC (Auto) Urine Creatinine Urine Total Protein Vancomycin Trough Rheumatoid Factor Complement C4 Miscellaneous Test Crossmatch 09/18/16 09/18/16 09/18/16 12:03 15:34 17:50 WBC RBC Hgb Hct MCV MCH MCHC RDW Plt Count Lymph % (Auto) [place] % (Auto) Lymph # [place] # Seg Neutrophils % Seg Neuts % (Manual) Lymphocytes % (Manual) Monocytes % (Manual) Eosinophils % (Manual) Basophils % (Manual) Nucleated RBC % Seg Neutrophils # Seg Neutrophils # Man Lymphocytes # (Manual) Monocytes # (Manual) Eosinophils # (Manual) PT INR Fibrinogen dRVVT Confirm Interp Factor V Activity POC ABG pH POC ABG pCO2 25.7 L POC ABG pO2 66 L Sodium Potassium Chloride Carbon Dioxide BUN Creatinine Glucose POC Glucose 156 H 220 H Lactic Acid Calcium Phosphorus Magnesium Direct Bilirubin ALT Alkaline Phosphatase Troponin T C-Reactive Protein Total Protein Albumin Triglycerides Cholesterol LDL Cholesterol Direct HDL Cholesterol Urine WBC (Auto) Urine Creatinine Urine Total Protein Vancomycin Trough Rheumatoid Factor Complement C4 Miscellaneous Test Crossmatch 09/19/16 09/19/16 09/19/16 06:21 09:50 09:50 WBC 17.1 H RBC 3.49 L Hgb 9.0 L Hct 28.1 L MCV MCH 26 L MCHC RDW 20.8 H Plt Count Lymph % (Auto) 11.5 L [place] % (Auto) 7.5 H Lymph # [place] # 1.3 H Seg Neutrophils % 79.8 H Seg Neuts % (Manual) Lymphocytes % (Manual) Monocytes % (Manual) Eosinophils % (Manual) Basophils % (Manual) Nucleated RBC % Seg Neutrophils # 13.7 H Seg Neutrophils # Man Lymphocytes # (Manual) Monocytes # (Manual) Eosinophils # (Manual) PT INR Fibrinogen dRVVT Confirm Interp Factor V Activity POC ABG pH POC ABG pCO2 POC ABG pO2 Sodium Potassium Chloride 108.6 H Carbon Dioxide 15 L BUN 125 H Creatinine 4.1 H Glucose 124 H POC Glucose 119 H Lactic Acid Calcium Phosphorus Magnesium Direct Bilirubin ALT Alkaline Phosphatase Troponin T C-Reactive Protein Total Protein Albumin Triglycerides Cholesterol LDL Cholesterol Direct HDL Cholesterol Urine WBC (Auto) Urine Creatinine Urine Total Protein Vancomycin Trough Rheumatoid Factor Complement C4 Miscellaneous Test Crossmatch 09/19/16 09/19/16 09/19/16 11:25 17:53 23:36 WBC RBC Hgb Hct MCV MCH MCHC RDW Plt Count Lymph % (Auto) [place] % (Auto) Lymph # [place] # Seg Neutrophils % Seg Neuts % (Manual) Lymphocytes % (Manual) Monocytes % (Manual) Eosinophils % (Manual) Basophils % (Manual) Nucleated RBC % Seg Neutrophils # Seg Neutrophils # Man Lymphocytes # (Manual) Monocytes # (Manual) Eosinophils # (Manual) PT INR Fibrinogen dRVVT Confirm Interp Factor V Activity POC ABG pH POC ABG pCO2 POC ABG pO2 Sodium Potassium Chloride Carbon Dioxide BUN Creatinine Glucose POC Glucose 160 H 245 H 121 H Lactic Acid Calcium Phosphorus Magnesium Direct Bilirubin ALT Alkaline Phosphatase Troponin T C-Reactive Protein Total Protein Albumin Triglycerides Cholesterol LDL Cholesterol Direct HDL Cholesterol Urine WBC (Auto) Urine Creatinine Urine Total Protein Vancomycin Trough Rheumatoid Factor Complement C4 Miscellaneous Test Crossmatch 09/20/16 09/20/16 09/20/16 04:10 04:10 04:10 WBC 17.0 H RBC 3.21 L Hgb 8.2 L Hct 25.5 L MCV MCH 26 L MCHC RDW 20.9 H Plt Count Lymph % (Auto) [place] % (Auto) Lymph # [place] # Seg Neutrophils % Seg Neuts % (Manual) Lymphocytes % (Manual) Monocytes % (Manual) Eosinophils % (Manual) Basophils % (Manual) Nucleated RBC % Seg Neutrophils # Seg Neutrophils # Man Lymphocytes # (Manual) Monocytes # (Manual) Eosinophils # (Manual) PT INR Fibrinogen dRVVT Confirm Interp Factor V Activity POC ABG pH POC ABG pCO2 POC ABG pO2 Sodium Potassium Chloride 111.0 H Carbon Dioxide 16 L BUN 129 H Creatinine 3.7 H Glucose 115 H POC Glucose Lactic Acid Calcium 8.2 L Phosphorus Magnesium Direct Bilirubin ALT Alkaline Phosphatase Troponin T C-Reactive Protein Total Protein Albumin Triglycerides 243 H Cholesterol LDL Cholesterol Direct HDL Cholesterol Urine WBC (Auto) Urine Creatinine Urine Total Protein Vancomycin Trough Rheumatoid Factor Complement C4 Miscellaneous Test Crossmatch 09/20/16 09/20/16 09/20/16 05:40 11:52 16:50 WBC RBC Hgb Hct MCV MCH MCHC RDW Plt Count Lymph % (Auto) [place] % (Auto) Lymph # [place] # Seg Neutrophils % Seg Neuts % (Manual) Lymphocytes % (Manual) Monocytes % (Manual) Eosinophils % (Manual) Basophils % (Manual) Nucleated RBC % Seg Neutrophils # Seg Neutrophils # Man Lymphocytes # (Manual) Monocytes # (Manual) Eosinophils # (Manual) PT INR Fibrinogen dRVVT Confirm Interp Factor V Activity POC ABG pH POC ABG pCO2 POC ABG pO2 Sodium Potassium Chloride Carbon Dioxide BUN Creatinine Glucose POC Glucose 131 H 183 H 236 H Lactic Acid Calcium Phosphorus Magnesium Direct Bilirubin ALT Alkaline Phosphatase Troponin T C-Reactive Protein Total Protein Albumin Triglycerides Cholesterol LDL Cholesterol Direct HDL Cholesterol Urine WBC (Auto) Urine Creatinine Urine Total Protein Vancomycin Trough Rheumatoid Factor Complement C4 Miscellaneous Test Crossmatch 09/20/16 09/21/16 09/21/16 23:51 03:30 04:44 WBC RBC Hgb Hct MCV MCH MCHC RDW Plt Count Lymph % (Auto) [place] % (Auto) Lymph # [place] # Seg Neutrophils % Seg Neuts % (Manual) Lymphocytes % (Manual) Monocytes % (Manual) Eosinophils % (Manual) Basophils % (Manual) Nucleated RBC % Seg Neutrophils # Seg Neutrophils # Man Lymphocytes # (Manual) Monocytes # (Manual) Eosinophils # (Manual) PT INR Fibrinogen dRVVT Confirm Interp Factor V Activity POC ABG pH POC ABG pCO2 POC ABG pO2 Sodium Potassium Chloride Carbon Dioxide BUN Creatinine Glucose POC Glucose 114 H 141 H Lactic Acid Calcium Phosphorus Magnesium 2.70 H Direct Bilirubin ALT Alkaline Phosphatase Troponin T C-Reactive Protein Total Protein Albumin Triglycerides Cholesterol LDL Cholesterol Direct HDL Cholesterol Urine WBC (Auto) Urine Creatinine Urine Total Protein Vancomycin Trough Rheumatoid Factor Complement C4 Miscellaneous Test Crossmatch 09/21/16 09/21/16 09/21/16 07:45 07:45 10:01 WBC 13.8 H RBC 2.94 L Hgb 7.5 L Hct 23.5 L MCV MCH 26 L MCHC RDW 21.2 H Plt Count Lymph % (Auto) 6.9 L [place] % (Auto) 9.4 H Lymph # 0.9 L [place] # 1.3 H Seg Neutrophils % 83.2 H Seg Neuts % (Manual) Lymphocytes % (Manual) Monocytes % (Manual) Eosinophils % (Manual) Basophils % (Manual) Nucleated RBC % Seg Neutrophils # 11.5 H Seg Neutrophils # Man Lymphocytes # (Manual) Monocytes # (Manual) Eosinophils # (Manual) PT INR Fibrinogen dRVVT Confirm Interp Factor V Activity POC ABG pH 7.308 L POC ABG pCO2 31.9 L POC ABG pO2 148 H Sodium 147 H Potassium Chloride 114.2 H Carbon Dioxide 15 L BUN 120 H Creatinine 3.9 H Glucose 156 H POC Glucose Lactic Acid Calcium 8.2 L Phosphorus Magnesium Direct Bilirubin ALT Alkaline Phosphatase Troponin T C-Reactive Protein Total Protein Albumin Triglycerides Cholesterol LDL Cholesterol Direct HDL Cholesterol Urine WBC (Auto) Urine Creatinine Urine Total Protein Vancomycin Trough Rheumatoid Factor Complement C4 Miscellaneous Test Crossmatch 09/21/16 09/21/16 09/21/16 12:00 12:03 13:00 WBC RBC Hgb Hct MCV MCH MCHC RDW Plt Count Lymph % (Auto) [place] % (Auto) Lymph # [place] # Seg Neutrophils % Seg Neuts % (Manual) Lymphocytes % (Manual) Monocytes % (Manual) Eosinophils % (Manual) Basophils % (Manual) Nucleated RBC % Seg Neutrophils # Seg Neutrophils # Man Lymphocytes # (Manual) Monocytes # (Manual) Eosinophils # (Manual) PT INR Fibrinogen dRVVT Confirm Interp Factor V Activity POC ABG pH POC ABG pCO2 POC ABG pO2 Sodium Potassium Chloride Carbon Dioxide BUN Creatinine Glucose POC Glucose 163 H Lactic Acid Calcium Phosphorus Magnesium Direct Bilirubin ALT Alkaline Phosphatase Troponin T C-Reactive Protein Total Protein Albumin Triglycerides Cholesterol LDL Cholesterol Direct HDL Cholesterol Urine WBC (Auto) Urine Creatinine 54.8 H Urine Total Protein Vancomycin Trough 2.3 L Rheumatoid Factor Complement C4 Miscellaneous Test Crossmatch 09/21/16 09/21/16 09/22/16 16:51 23:17 06:27 WBC RBC Hgb Hct MCV MCH MCHC RDW Plt Count Lymph % (Auto) [place] % (Auto) Lymph # [place] # Seg Neutrophils % Seg Neuts % (Manual) Lymphocytes % (Manual) Monocytes % (Manual) Eosinophils % (Manual) Basophils % (Manual) Nucleated RBC % Seg Neutrophils # Seg Neutrophils # Man Lymphocytes # (Manual) Monocytes # (Manual) Eosinophils # (Manual) PT INR Fibrinogen dRVVT Confirm Interp Factor V Activity POC ABG pH POC ABG pCO2 POC ABG pO2 Sodium Potassium Chloride Carbon Dioxide BUN Creatinine Glucose POC Glucose 206 H 114 H 115 H Lactic Acid Calcium Phosphorus Magnesium Direct Bilirubin ALT Alkaline Phosphatase Troponin T C-Reactive Protein Total Protein Albumin Triglycerides Cholesterol LDL Cholesterol Direct HDL Cholesterol Urine WBC (Auto) Urine Creatinine Urine Total Protein Vancomycin Trough Rheumatoid Factor Complement C4 Miscellaneous Test Crossmatch 09/22/16 09/22/16 09/22/16 07:50 07:50 12:00 WBC 17.8 H RBC 3.04 L Hgb 8.0 L Hct 24.7 L MCV MCH 26 L MCHC RDW 21.6 H Plt Count Lymph % (Auto) [place] % (Auto) Lymph # [place] # Seg Neutrophils % Seg Neuts % (Manual) Lymphocytes % (Manual) Monocytes % (Manual) Eosinophils % (Manual) Basophils % (Manual) Nucleated RBC % Seg Neutrophils # Seg Neutrophils # Man Lymphocytes # (Manual) Monocytes # (Manual) Eosinophils # (Manual) PT INR Fibrinogen dRVVT Confirm Interp Factor V Activity POC ABG pH POC ABG pCO2 POC ABG pO2 Sodium 150 H Potassium Chloride 118.2 H Carbon Dioxide 14 L BUN 111 H Creatinine 3.7 H Glucose 157 H POC Glucose 183 H Lactic Acid Calcium Phosphorus Magnesium Direct Bilirubin ALT Alkaline Phosphatase Troponin T C-Reactive Protein Total Protein Albumin Triglycerides Cholesterol LDL Cholesterol Direct HDL Cholesterol Urine WBC (Auto) Urine Creatinine Urine Total Protein Vancomycin Trough Rheumatoid Factor Complement C4 Miscellaneous Test Crossmatch 09/22/16 09/22/16 09/23/16 17:29 23:10 05:00 WBC 19.2 H RBC 3.13 L Hgb 8.0 L Hct 25.2 L MCV MCH 26 L MCHC RDW 22.1 H Plt Count Lymph % (Auto) [place] % (Auto) Lymph # [place] # Seg Neutrophils % Seg Neuts % (Manual) 92.0 H Lymphocytes % (Manual) 3.0 L Monocytes % (Manual) Eosinophils % (Manual) Basophils % (Manual) Nucleated RBC % Seg Neutrophils # Seg Neutrophils # Man 17.7 H Lymphocytes # (Manual) 0.6 L Monocytes # (Manual) Eosinophils # (Manual) PT INR Fibrinogen dRVVT Confirm Interp Factor V Activity POC ABG pH POC ABG pCO2 POC ABG pO2 Sodium Potassium Chloride Carbon Dioxide BUN Creatinine Glucose POC Glucose 197 H 169 H Lactic Acid Calcium Phosphorus Magnesium Direct Bilirubin ALT Alkaline Phosphatase Troponin T C-Reactive Protein Total Protein Albumin Triglycerides Cholesterol LDL Cholesterol Direct HDL Cholesterol Urine WBC (Auto) Urine Creatinine Urine Total Protein Vancomycin Trough Rheumatoid Factor Complement C4 Miscellaneous Test Crossmatch 09/23/16 09/23/16 09/23/16 05:00 05:00 05:10 WBC RBC Hgb Hct MCV MCH MCHC RDW Plt Count Lymph % (Auto) [place] % (Auto) Lymph # [place] # Seg Neutrophils % Seg Neuts % (Manual) Lymphocytes % (Manual) Monocytes % (Manual) Eosinophils % (Manual) Basophils % (Manual) Nucleated RBC % Seg Neutrophils # Seg Neutrophils # Man Lymphocytes # (Manual) Monocytes # (Manual) Eosinophils # (Manual) PT INR Fibrinogen dRVVT Confirm Interp Factor V Activity POC ABG pH POC ABG pCO2 POC ABG pO2 Sodium 147 H Potassium 3.2 L Chloride 115.7 H Carbon Dioxide 13 L BUN 111 H Creatinine 3.8 H Glucose 194 H POC Glucose 188 H Lactic Acid Calcium 7.3 L D Phosphorus Magnesium Direct Bilirubin ALT Alkaline Phosphatase Troponin T C-Reactive Protein 3.20 H Total Protein Albumin Triglycerides Cholesterol LDL Cholesterol Direct HDL Cholesterol Urine WBC (Auto) Urine Creatinine Urine Total Protein Vancomycin Trough Rheumatoid Factor Complement C4 Miscellaneous Test Crossmatch 09/23/16 09/23/16 09/23/16 11:37 12:29 18:01 WBC RBC Hgb Hct MCV MCH MCHC RDW Plt Count Lymph % (Auto) [place] % (Auto) Lymph # [place] # Seg Neutrophils % Seg Neuts % (Manual) Lymphocytes % (Manual) Monocytes % (Manual) Eosinophils % (Manual) Basophils % (Manual) Nucleated RBC % Seg Neutrophils # Seg Neutrophils # Man Lymphocytes # (Manual) Monocytes # (Manual) Eosinophils # (Manual) PT INR Fibrinogen dRVVT Confirm Interp Factor V Activity POC ABG pH POC ABG pCO2 18.9 L POC ABG pO2 143 H Sodium Potassium Chloride Carbon Dioxide BUN Creatinine Glucose POC Glucose 153 H 108 H Lactic Acid Calcium Phosphorus Magnesium Direct Bilirubin ALT Alkaline Phosphatase Troponin T C-Reactive Protein Total Protein Albumin Triglycerides Cholesterol LDL Cholesterol Direct HDL Cholesterol Urine WBC (Auto) Urine Creatinine Urine Total Protein Vancomycin Trough Rheumatoid Factor Complement C4 Miscellaneous Test Crossmatch 0809/23/16 09/24/16 21:19 23:43 05:16 WBC RBC Hgb Hct MCV MCH MCHC RDW Plt Count Lymph % (Auto) [place] % (Auto) Lymph # [place] # Seg Neutrophils % Seg Neuts % (Manual) Lymphocytes % (Manual) Monocytes % (Manual) Eosinophils % (Manual) Basophils % (Manual) Nucleated RBC % Seg Neutrophils # Seg Neutrophils # Man Lymphocytes # (Manual) Monocytes # (Manual) Eosinophils # (Manual) PT INR Fibrinogen dRVVT Confirm Interp Factor V Activity POC ABG pH POC ABG pCO2 17.3 L POC ABG pO2 112 H Sodium Potassium Chloride Carbon Dioxide BUN Creatinine Glucose POC Glucose 143 H 164 H Lactic Acid Calcium Phosphorus Magnesium Direct Bilirubin ALT Alkaline Phosphatase Troponin T C-Reactive Protein Total Protein Albumin Triglycerides Cholesterol LDL Cholesterol Direct HDL Cholesterol Urine WBC (Auto) Urine Creatinine Urine Total Protein Vancomycin Trough Rheumatoid Factor Complement C4 Miscellaneous Test Crossmatch 09/24/16 09/24/16 09/24/16 05:21 11:58 17:06 WBC RBC Hgb Hct MCV MCH MCHC RDW Plt Count Lymph % (Auto) [place] % (Auto) Lymph # [place] # Seg Neutrophils % Seg Neuts % (Manual) Lymphocytes % (Manual) Monocytes % (Manual) Eosinophils % (Manual) Basophils % (Manual) Nucleated RBC % Seg Neutrophils # Seg Neutrophils # Man Lymphocytes # (Manual) Monocytes # (Manual) Eosinophils # (Manual) PT INR Fibrinogen dRVVT Confirm Interp Factor V Activity POC ABG pH POC ABG pCO2 POC ABG pO2 Sodium Potassium Chloride Carbon Dioxide 10 L BUN 103 H Creatinine 4.3 H Glucose 163 H POC Glucose 173 H 167 H Lactic Acid Calcium 6.5 L Phosphorus Magnesium Direct Bilirubin ALT Alkaline Phosphatase Troponin T C-Reactive Protein Total Protein Albumin Triglycerides Cholesterol LDL Cholesterol Direct HDL Cholesterol Urine WBC (Auto) Urine Creatinine Urine Total Protein Vancomycin Trough Rheumatoid Factor Complement C4 Miscellaneous Test Crossmatch 09/24/16 09/24/16 09/24/16 20:15 21:02 23:48 WBC RBC Hgb Hct MCV MCH MCHC RDW Plt Count Lymph % (Auto) [place] % (Auto) Lymph # [place] # Seg Neutrophils % Seg Neuts % (Manual) Lymphocytes % (Manual) Monocytes % (Manual) Eosinophils % (Manual) Basophils % (Manual) Nucleated RBC % Seg Neutrophils # Seg Neutrophils # Man Lymphocytes # (Manual) Monocytes # (Manual) Eosinophils # (Manual) PT INR Fibrinogen dRVVT Confirm Interp Factor V Activity POC ABG pH 7.288 L POC ABG pCO2 30.2 L 21.5 L POC ABG pO2 32 L 39 L Sodium Potassium Chloride Carbon Dioxide BUN Creatinine Glucose POC Glucose 109 H Lactic Acid Calcium Phosphorus Magnesium Direct Bilirubin ALT Alkaline Phosphatase Troponin T C-Reactive Protein Total Protein Albumin Triglycerides Cholesterol LDL Cholesterol Direct HDL Cholesterol Urine WBC (Auto) Urine Creatinine Urine Total Protein Vancomycin Trough Rheumatoid Factor Complement C4 Miscellaneous Test Crossmatch 09/25/16 09/25/16 09/25/16 04:20 04:20 04:20 WBC RBC 2.58 L Hgb 7.0 L Hct 21.0 L MCV MCH 27 L MCHC RDW 23.8 H Plt Count Lymph % (Auto) [place] % (Auto) Lymph # [place] # Seg Neutrophils % Seg Neuts % (Manual) Lymphocytes % (Manual) 12.0 L Monocytes % (Manual) Eosinophils % (Manual) 7.0 H Basophils % (Manual) 2.0 H Nucleated RBC % Seg Neutrophils # Seg Neutrophils # Man Lymphocytes # (Manual) 0.9 L Monocytes # (Manual) Eosinophils # (Manual) 0.5 H PT INR Fibrinogen dRVVT Confirm Interp Factor V Activity POC ABG pH POC ABG pCO2 POC ABG pO2 Sodium Potassium Chloride Carbon Dioxide 15 L BUN 72 H Creatinine 3.8 H Glucose POC Glucose Lactic Acid Calcium 6.0 L Phosphorus 4.60 H Magnesium 1.60 L Direct Bilirubin ALT Alkaline Phosphatase Troponin T C-Reactive Protein Total Protein Albumin Triglycerides Cholesterol LDL Cholesterol Direct HDL Cholesterol Urine WBC (Auto) Urine Creatinine Urine Total Protein Vancomycin Trough Rheumatoid Factor Complement C4 Miscellaneous Test Crossmatch 09/25/16 09/25/16 09/25/16 04:57 08:02 10:30 WBC RBC Hgb Hct MCV MCH MCHC RDW Plt Count Lymph % (Auto) [place] % (Auto) Lymph # [place] # Seg Neutrophils % Seg Neuts % (Manual) Lymphocytes % (Manual) Monocytes % (Manual) Eosinophils % (Manual) Basophils % (Manual) Nucleated RBC % Seg Neutrophils # Seg Neutrophils # Man Lymphocytes # (Manual) Monocytes # (Manual) Eosinophils # (Manual) PT INR Fibrinogen dRVVT Confirm Interp Factor V Activity POC ABG pH POC ABG pCO2 24.7 L POC ABG pO2 152 H Sodium Potassium Chloride Carbon Dioxide BUN Creatinine Glucose POC Glucose 113 H Lactic Acid Calcium Phosphorus Magnesium Direct Bilirubin ALT Alkaline Phosphatase Troponin T C-Reactive Protein Total Protein Albumin Triglycerides Cholesterol LDL Cholesterol Direct HDL Cholesterol Urine WBC (Auto) Urine Creatinine Urine Total Protein Vancomycin Trough Rheumatoid Factor Complement C4 Miscellaneous Test Crossmatch See Detail 09/25/16 09/25/16 09/25/16 12:05 17:44 23:47 WBC RBC Hgb Hct MCV MCH MCHC RDW Plt Count Lymph % (Auto) [place] % (Auto) Lymph # [place] # Seg Neutrophils % Seg Neuts % (Manual) Lymphocytes % (Manual) Monocytes % (Manual) Eosinophils % (Manual) Basophils % (Manual) Nucleated RBC % Seg Neutrophils # Seg Neutrophils # Man Lymphocytes # (Manual) Monocytes # (Manual) Eosinophils # (Manual) PT INR Fibrinogen dRVVT Confirm Interp Factor V Activity POC ABG pH POC ABG pCO2 POC ABG pO2 Sodium Potassium Chloride Carbon Dioxide BUN Creatinine Glucose POC Glucose 117 H 119 H 150 H Lactic Acid Calcium Phosphorus Magnesium Direct Bilirubin ALT Alkaline Phosphatase Troponin T C-Reactive Protein Total Protein Albumin Triglycerides Cholesterol LDL Cholesterol Direct HDL Cholesterol Urine WBC (Auto) Urine Creatinine Urine Total Protein Vancomycin Trough Rheumatoid Factor Complement C4 Miscellaneous Test Crossmatch 09/26/16 09/26/16 09/26/16 04:25 04:25 04:25 WBC RBC 2.65 L Hgb 7.4 L Hct 21.6 L MCV MCH MCHC RDW 22.5 H Plt Count Lymph % (Auto) [place] % (Auto) Lymph # [place] # Seg Neutrophils % Seg Neuts % (Manual) Lymphocytes % (Manual) 6.0 L Monocytes % (Manual) Eosinophils % (Manual) 11.0 H Basophils % (Manual) Nucleated RBC % Seg Neutrophils # Seg Neutrophils # Man Lymphocytes # (Manual) 0.4 L Monocytes # (Manual) Eosinophils # (Manual) 0.6 H PT INR Fibrinogen dRVVT Confirm Interp Factor V Activity POC ABG pH POC ABG pCO2 POC ABG pO2 Sodium Potassium Chloride 97.0 L Carbon Dioxide 19 L BUN 43 H Creatinine 2.6 H Glucose 130 H POC Glucose Lactic Acid 4.40 H* Calcium 6.7 L Phosphorus Magnesium Direct Bilirubin ALT Alkaline Phosphatase Troponin T C-Reactive Protein Total Protein Albumin Triglycerides Cholesterol LDL Cholesterol Direct HDL Cholesterol Urine WBC (Auto) Urine Creatinine Urine Total Protein Vancomycin Trough Rheumatoid Factor Complement C4 Miscellaneous Test Crossmatch 09/26/16 09/26/1609/26/17 05:20 11:44 12:12 WBC RBC Hgb Hct MCV MCH MCHC RDW Plt Count Lymph % (Auto) [place] % (Auto) Lymph # [place] # Seg Neutrophils % Seg Neuts % (Manual) Lymphocytes % (Manual) Monocytes % (Manual) Eosinophils % (Manual) Basophils % (Manual) Nucleated RBC % Seg Neutrophils # Seg Neutrophils # Man Lymphocytes # (Manual) Monocytes # (Manual) Eosinophils # (Manual) PT INR Fibrinogen dRVVT Confirm Interp Factor V Activity POC ABG pH POC ABG pCO2 27.0 L POC ABG pO2 69 L Sodium Potassium Chloride Carbon Dioxide BUN Creatinine Glucose POC Glucose 121 H 128 H Lactic Acid Calcium Phosphorus Magnesium Direct Bilirubin ALT Alkaline Phosphatase Troponin T C-Reactive Protein Total Protein Albumin Triglycerides Cholesterol LDL Cholesterol Direct HDL Cholesterol Urine WBC (Auto) Urine Creatinine Urine Total Protein Vancomycin Trough Rheumatoid Factor Complement C4 Miscellaneous Test Crossmatch 09/26/16 09/26/16 09/27/16 18:31 23:40 08:20 WBC RBC Hgb Hct MCV MCH MCHC RDW Plt Count Lymph % (Auto) [place] % (Auto) Lymph # [place] # Seg Neutrophils % Seg Neuts % (Manual) Lymphocytes % (Manual) Monocytes % (Manual) Eosinophils % (Manual) Basophils % (Manual) Nucleated RBC % Seg Neutrophils # Seg Neutrophils # Man Lymphocytes # (Manual) Monocytes # (Manual) Eosinophils # (Manual) PT INR Fibrinogen dRVVT Confirm Interp Factor V Activity POC ABG pH POC ABG pCO2 POC ABG pO2 Sodium Potassium Chloride Carbon Dioxide BUN Creatinine Glucose POC Glucose 120 H 133 H Lactic Acid 4.10 H* Calcium Phosphorus Magnesium Direct Bilirubin ALT Alkaline Phosphatase Troponin T C-Reactive Protein Total Protein Albumin Triglycerides Cholesterol LDL Cholesterol Direct HDL Cholesterol Urine WBC (Auto) Urine Creatinine Urine Total Protein Vancomycin Trough Rheumatoid Factor Complement C4 Miscellaneous Test Crossmatch 09/27/16 09/27/16 09/27/16 11:23 15:00 18:15 WBC RBC Hgb Hct MCV MCH MCHC RDW Plt Count Lymph % (Auto) [place] % (Auto) Lymph # [place] # Seg Neutrophils % Seg Neuts % (Manual) Lymphocytes % (Manual) Monocytes % (Manual) Eosinophils % (Manual) Basophils % (Manual) Nucleated RBC % Seg Neutrophils # Seg Neutrophils # Man Lymphocytes # (Manual) Monocytes # (Manual) Eosinophils # (Manual) PT INR Fibrinogen dRVVT Confirm Interp Factor V Activity POC ABG pH 7.459 H POC ABG pCO2 27.1 L POC ABG pO2 140 H Sodium Potassium Chloride Carbon Dioxide BUN Creatinine Glucose POC Glucose 114 H 127 H Lactic Acid Calcium Phosphorus Magnesium Direct Bilirubin ALT Alkaline Phosphatase Troponin T C-Reactive Protein Total Protein Albumin Triglycerides Cholesterol LDL Cholesterol Direct HDL Cholesterol Urine WBC (Auto) Urine Creatinine Urine Total Protein Vancomycin Trough Rheumatoid Factor Complement C4 Miscellaneous Test Crossmatch 09/27/16 09/27/16 09/28/16 Unknown Unknown 03:45 WBC RBC 2.49 L Hgb 6.8 L Hct 20.7 L MCV MCH 27 L MCHC RDW 22.1 H Plt Count Lymph % (Auto) [place] % (Auto) Lymph # [place] # Seg Neutrophils % Seg Neuts % (Manual) 32.0 L Lymphocytes % (Manual) 12.0 L Monocytes % (Manual) 11.0 H Eosinophils % (Manual) 10.0 H Basophils % (Manual) Nucleated RBC % Seg Neutrophils # Seg Neutrophils # Man Lymphocytes # (Manual) 1.0 L Monocytes # (Manual) 0.9 H Eosinophils # (Manual) 0.8 H PT INR Fibrinogen dRVVT Confirm Interp Factor V Activity POC ABG pH POC ABG pCO2 POC ABG pO2 Sodium 135 L 135 L Potassium 3.5 L Chloride 93.6 L 94.4 L Carbon Dioxide 17 L 21 L BUN 45 H 28 H Creatinine 3.3 H 2.5 H Glucose 106 H POC Glucose Lactic Acid Calcium 7.3 L 7.1 L Phosphorus Magnesium Direct Bilirubin ALT Alkaline Phosphatase Troponin T C-Reactive Protein Total Protein Albumin Triglycerides Cholesterol LDL Cholesterol Direct HDL Cholesterol Urine WBC (Auto) Urine Creatinine Urine Total Protein Vancomycin Trough Rheumatoid Factor Complement C4 Miscellaneous Test Crossmatch 09/28/16 09/28/16 09/28/16 03:45 07:25 11:58 WBC 13.3 H RBC 3.01 L Hgb 8.4 L Hct 25.0 L MCV MCH MCHC RDW 20.5 H Plt Count 128 L Lymph % (Auto) [place] % (Auto) Lymph # [place] # Seg Neutrophils % Seg Neuts % (Manual) Lymphocytes % (Manual) 7.0 L Monocytes % (Manual) Eosinophils % (Manual) 6.0 H Basophils % (Manual) Nucleated RBC % Seg Neutrophils # Seg Neutrophils # Man Lymphocytes # (Manual) 0.9 L Monocytes # (Manual) Eosinophils # (Manual) 0.8 H PT INR Fibrinogen dRVVT Confirm Interp Factor V Activity POC ABG pH POC ABG pCO2 POC ABG pO2 Sodium Potassium Chloride Carbon Dioxide BUN Creatinine Glucose POC Glucose 121 H Lactic Acid 4.50 H* Calcium Phosphorus Magnesium Direct Bilirubin ALT Alkaline Phosphatase Troponin T C-Reactive Protein Total Protein Albumin Triglycerides Cholesterol LDL Cholesterol Direct HDL Cholesterol Urine WBC (Auto) Urine Creatinine Urine Total Protein Vancomycin Trough Rheumatoid Factor Complement C4 Miscellaneous Test Crossmatch 09/29/16 09/29/16 09/29/16 06:45 06:45 06:45 WBC 14.9 H RBC 2.74 L Hgb 7.6 L Hct 23.2 L MCV MCH MCHC RDW 20.5 H Plt Count 81 L Lymph % (Auto) [place] % (Auto) Lymph # [place] # Seg Neutrophils % Seg Neuts % (Manual) 81.0 H Lymphocytes % (Manual) 4.0 L Monocytes % (Manual) Eosinophils % (Manual) Basophils % (Manual) Nucleated RBC % Seg Neutrophils # Seg Neutrophils # Man 12.1 H Lymphocytes # (Manual) 0.6 L Monocytes # (Manual) Eosinophils # (Manual) PT INR Fibrinogen dRVVT Confirm Interp Factor V Activity POC ABG pH POC ABG pCO2 POC ABG pO2 Sodium 133 L Potassium 3.4 L Chloride 92.5 L Carbon Dioxide 21 L BUN 33 H Creatinine 3.0 H Glucose POC Glucose Lactic Acid Calcium 6.6 L Phosphorus Magnesium 1.40 L Direct Bilirubin 0.9 H ALT Alkaline Phosphatase Troponin T C-Reactive Protein Total Protein 4.3 L Albumin 1.3 L Triglycerides Cholesterol LDL Cholesterol Direct HDL Cholesterol Urine WBC (Auto) Urine Creatinine Urine Total Protein Vancomycin Trough Rheumatoid Factor Complement C4 Miscellaneous Test Crossmatch 09/29/16 09/29/16 09/30/16 17:52 20:12 00:07 WBC RBC Hgb Hct MCV MCH MCHC RDW Plt Count Lymph % (Auto) [place] % (Auto) Lymph # [place] # Seg Neutrophils % Seg Neuts % (Manual) Lymphocytes % (Manual) Monocytes % (Manual) Eosinophils % (Manual) Basophils % (Manual) Nucleated RBC % Seg Neutrophils # Seg Neutrophils # Man Lymphocytes # (Manual) Monocytes # (Manual) Eosinophils # (Manual) PT INR Fibrinogen dRVVT Confirm Interp Factor V Activity POC ABG pH POC ABG pCO2 POC ABG pO2 Sodium Potassium Chloride Carbon Dioxide BUN Creatinine Glucose POC Glucose 50 L 51 L Lactic Acid Calcium Phosphorus Magnesium Direct Bilirubin ALT Alkaline Phosphatase Troponin T 0.204 H* C-Reactive Protein Total Protein Albumin Triglycerides Cholesterol 31 L LDL Cholesterol Direct 4 L HDL Cholesterol 3 L Urine WBC (Auto) Urine Creatinine Urine Total Protein Vancomycin Trough Rheumatoid Factor Complement C4 Miscellaneous Test Crossmatch 09/30/16 09/30/16 09/30/16 01:30 05:15 06:10 WBC RBC Hgb Hct MCV MCH MCHC RDW Plt Count Lymph % (Auto) [place] % (Auto) Lymph # [place] # Seg Neutrophils % Seg Neuts % (Manual) Lymphocytes % (Manual) Monocytes % (Manual) Eosinophils % (Manual) Basophils % (Manual) Nucleated RBC % Seg Neutrophils # Seg Neutrophils # Man Lymphocytes # (Manual) Monocytes # (Manual) Eosinophils # (Manual) PT INR Fibrinogen dRVVT Confirm Interp Factor V Activity POC ABG pH POC ABG pCO2 POC ABG pO2 Sodium 133 L Potassium 3.2 L Chloride 93.2 L Carbon Dioxide 19 L BUN 36 H Creatinine 3.2 H Glucose 104 H POC Glucose 167 H 146 H Lactic Acid Calcium 6.4 L Phosphorus Magnesium 1.60 L Direct Bilirubin ALT Alkaline Phosphatase Troponin T C-Reactive Protein Total Protein Albumin Triglycerides Cholesterol LDL Cholesterol Direct HDL Cholesterol Urine WBC (Auto) Urine Creatinine Urine Total Protein Vancomycin Trough Rheumatoid Factor Complement C4 Miscellaneous Test Crossmatch 09/30/16 09/30/16 09/30/16 11:26 13:39 18:38 WBC RBC Hgb Hct MCV MCH MCHC RDW Plt Count Lymph % (Auto) [place] % (Auto) Lymph # [place] # Seg Neutrophils % Seg Neuts % (Manual) Lymphocytes % (Manual) Monocytes % (Manual) Eosinophils % (Manual) Basophils % (Manual) Nucleated RBC % Seg Neutrophils # Seg Neutrophils # Man Lymphocytes # (Manual) Monocytes # (Manual) Eosinophils # (Manual) PT INR Fibrinogen dRVVT Confirm Interp Factor V Activity POC ABG pH 7.479 H POC ABG pCO2 29.8 L POC ABG pO2 117 H Sodium Potassium Chloride Carbon Dioxide BUN Creatinine Glucose POC Glucose 140 H 122 H Lactic Acid Calcium Phosphorus Magnesium Direct Bilirubin ALT Alkaline Phosphatase Troponin T C-Reactive Protein Total Protein Albumin Triglycerides Cholesterol LDL Cholesterol Direct HDL Cholesterol Urine WBC (Auto) Urine Creatinine Urine Total Protein Vancomycin Trough Rheumatoid Factor Complement C4 Miscellaneous Test Crossmatch 0810/01/16 10/01/16 06:00 06:00 12:37 WBC 12.6 H RBC 2.75 L Hgb 7.3 L Hct 23.3 L MCV MCH 27 L MCHC RDW 20.6 H Plt Count 72 L Lymph % (Auto) [place] % (Auto) Lymph # [place] # Seg Neutrophils % Seg Neuts % (Manual) 31.0 L Lymphocytes % (Manual) 8.0 L Monocytes % (Manual) Eosinophils % (Manual) Basophils % (Manual) Nucleated RBC % 3.0 H Seg Neutrophils # Seg Neutrophils # Man Lymphocytes # (Manual) 1.0 L Monocytes # (Manual) Eosinophils # (Manual) PT INR Fibrinogen dRVVT Confirm Interp Factor V Activity POC ABG pH POC ABG pCO2 POC ABG pO2 Sodium 127 L Potassium Chloride 86.8 L Carbon Dioxide 20 L BUN 42 H Creatinine 3.5 H Glucose POC Glucose 65 L Lactic Acid Calcium 7.0 L Phosphorus Magnesium Direct Bilirubin ALT Alkaline Phosphatase Troponin T C-Reactive Protein Total Protein Albumin Triglycerides Cholesterol LDL Cholesterol Direct HDL Cholesterol Urine WBC (Auto) Urine Creatinine Urine Total Protein Vancomycin Trough Rheumatoid Factor Complement C4 Miscellaneous Test Crossmatch 10/01/16 10/01/16 10/02/16 17:39 23:32 00:59 WBC RBC Hgb Hct MCV MCH MCHC RDW Plt Count Lymph % (Auto) [place] % (Auto) Lymph # [place] # Seg Neutrophils % Seg Neuts % (Manual) Lymphocytes % (Manual) Monocytes % (Manual) Eosinophils % (Manual) Basophils % (Manual) Nucleated RBC % Seg Neutrophils # Seg Neutrophils # Man Lymphocytes # (Manual) Monocytes # (Manual) Eosinophils # (Manual) PT INR Fibrinogen dRVVT Confirm Interp Factor V Activity POC ABG pH POC ABG pCO2 POC ABG pO2 Sodium Potassium Chloride Carbon Dioxide BUN Creatinine Glucose POC Glucose 107 H 52 L 145 H Lactic Acid Calcium Phosphorus Magnesium Direct Bilirubin ALT Alkaline Phosphatase Troponin T C-Reactive Protein Total Protein Albumin Triglycerides Cholesterol LDL Cholesterol Direct HDL Cholesterol Urine WBC (Auto) Urine Creatinine Urine Total Protein Vancomycin Trough Rheumatoid Factor Complement C4 Miscellaneous Test Crossmatch 10/02/16 10/02/16 10/02/16 10:30 10:50 10:50 WBC 14.7 H RBC 2.76 L Hgb 7.4 L Hct 23.6 L MCV MCH 27 L MCHC RDW 20.2 H Plt Count 79 L Lymph % (Auto) [place] % (Auto) Lymph # [place] # Seg Neutrophils % Seg Neuts % (Manual) 86.0 H Lymphocytes % (Manual) 6.0 L Monocytes % (Manual) Eosinophils % (Manual) Basophils % (Manual) Nucleated RBC % Seg Neutrophils # Seg Neutrophils # Man 12.6 H Lymphocytes # (Manual) 0.9 L Monocytes # (Manual) Eosinophils # (Manual) PT INR Fibrinogen dRVVT Confirm Interp Factor V Activity POC ABG pH 7.486 H POC ABG pCO2 30.1 L POC ABG pO2 108 H Sodium 131 L Potassium 3.4 L Chloride 89.9 L Carbon Dioxide BUN 26 H Creatinine 2.6 H Glucose POC Glucose Lactic Acid Calcium 7.0 L Phosphorus Magnesium Direct Bilirubin ALT Alkaline Phosphatase Troponin T C-Reactive Protein Total Protein Albumin Triglycerides Cholesterol LDL Cholesterol Direct HDL Cholesterol Urine WBC (Auto) Urine Creatinine Urine Total Protein Vancomycin Trough Rheumatoid Factor Complement C4 Miscellaneous Test Crossmatch 10/02/16 10/03/16 10/03/16 23:45 00:45 05:10 WBC 12.9 H RBC 2.77 L Hgb 7.6 L Hct 23.7 L MCV MCH 27 L MCHC RDW 19.7 H Plt Count 89 L Lymph % (Auto) [place] % (Auto) Lymph # [place] # Seg Neutrophils % Seg Neuts % (Manual) Lymphocytes % (Manual) 8.0 L Monocytes % (Manual) Eosinophils % (Manual) Basophils % (Manual) Nucleated RBC % Seg Neutrophils # 11.9 H Seg Neutrophils # Man Lymphocytes # (Manual) 1.0 L Monocytes # (Manual) Eosinophils # (Manual) PT INR Fibrinogen dRVVT Confirm Interp Factor V Activity POC ABG pH POC ABG pCO2 POC ABG pO2 Sodium Potassium Chloride Carbon Dioxide BUN Creatinine Glucose POC Glucose 55 L 199 H Lactic Acid Calcium Phosphorus Magnesium Direct Bilirubin ALT Alkaline Phosphatase Troponin T C-Reactive Protein Total Protein Albumin Triglycerides Cholesterol LDL Cholesterol Direct HDL Cholesterol Urine WBC (Auto) Urine Creatinine Urine Total Protein Vancomycin Trough Rheumatoid Factor Complement C4 Miscellaneous Test Crossmatch 10/03/16 10/03/16 10/03/16 05:10 12:14 13:18 WBC RBC Hgb Hct MCV MCH MCHC RDW Plt Count Lymph % (Auto) [place] % (Auto) Lymph # [place] # Seg Neutrophils % Seg Neuts % (Manual) Lymphocytes % (Manual) Monocytes % (Manual) Eosinophils % (Manual) Basophils % (Manual) Nucleated RBC % Seg Neutrophils # Seg Neutrophils # Man Lymphocytes # (Manual) Monocytes # (Manual) Eosinophils # (Manual) PT INR Fibrinogen dRVVT Confirm Interp Factor V Activity POC ABG pH POC ABG pCO2 POC ABG pO2 Sodium 129 L Potassium 3.3 L Chloride 88.8 L Carbon Dioxide 20 L BUN 29 H Creatinine 2.8 H Glucose POC Glucose 68 L 127 H Lactic Acid Calcium 7.2 L Phosphorus Magnesium Direct Bilirubin ALT Alkaline Phosphatase Troponin T C-Reactive Protein Total Protein Albumin Triglycerides Cholesterol LDL Cholesterol Direct HDL Cholesterol Urine WBC (Auto) Urine Creatinine Urine Total Protein Vancomycin Trough Rheumatoid Factor Complement C4 Miscellaneous Test Crossmatch 10/03/16 10/03/16 10/03/16 14:42 18:21 19:09 WBC RBC Hgb Hct MCV MCH MCHC RDW Plt Count Lymph % (Auto) [place] % (Auto) Lymph # [place] # Seg Neutrophils % Seg Neuts % (Manual) Lymphocytes % (Manual) Monocytes % (Manual) Eosinophils % (Manual) Basophils % (Manual) Nucleated RBC % Seg Neutrophils # Seg Neutrophils # Man Lymphocytes # (Manual) Monocytes # (Manual) Eosinophils # (Manual) PT INR Fibrinogen dRVVT Confirm Interp Factor V Activity POC ABG pH 7.499 H POC ABG pCO2 28.4 L POC ABG pO2 44 L Sodium Potassium Chloride Carbon Dioxide BUN Creatinine Glucose POC Glucose 64 L 205 H Lactic Acid Calcium Phosphorus Magnesium Direct Bilirubin ALT Alkaline Phosphatase Troponin T C-Reactive Protein Total Protein Albumin Triglycerides Cholesterol LDL Cholesterol Direct HDL Cholesterol Urine WBC (Auto) Urine Creatinine Urine Total Protein Vancomycin Trough Rheumatoid Factor Complement C4 Miscellaneous Test Crossmatch 10/03/16 10/04/16 10/04/16 23:33 04:18 06:30 WBC RBC 2.54 L Hgb 7.1 L Hct 21.7 L MCV MCH MCHC RDW 19.5 H Plt Count 76 L Lymph % (Auto) [place] % (Auto) Lymph # [place] # Seg Neutrophils % Seg Neuts % (Manual) 88.0 H Lymphocytes % (Manual) 6.0 L Monocytes % (Manual) Eosinophils % (Manual) Basophils % (Manual) Nucleated RBC % Seg Neutrophils # Seg Neutrophils # Man 8.8 H Lymphocytes # (Manual) 0.6 L Monocytes # (Manual) Eosinophils # (Manual) PT INR Fibrinogen dRVVT Confirm Interp Factor V Activity POC ABG pH 7.461 H POC ABG pCO2 33.6 L POC ABG pO2 211 H Sodium Potassium Chloride Carbon Dioxide BUN Creatinine Glucose POC Glucose 136 H Lactic Acid Calcium Phosphorus Magnesium Direct Bilirubin ALT Alkaline Phosphatase Troponin T C-Reactive Protein Total Protein Albumin Triglycerides Cholesterol LDL Cholesterol Direct HDL Cholesterol Urine WBC (Auto) Urine Creatinine Urine Total Protein Vancomycin Trough Rheumatoid Factor Complement C4 Miscellaneous Test Crossmatch 10/04/16 10/04/16 10/04/16 06:30 11:45 17:54 WBC RBC Hgb Hct MCV MCH MCHC RDW Plt Count Lymph % (Auto) [place] % (Auto) Lymph # [place] # Seg Neutrophils % Seg Neuts % (Manual) Lymphocytes % (Manual) Monocytes % (Manual) Eosinophils % (Manual) Basophils % (Manual) Nucleated RBC % Seg Neutrophils # Seg Neutrophils # Man Lymphocytes # (Manual) Monocytes # (Manual) Eosinophils # (Manual) PT INR Fibrinogen dRVVT Confirm Interp Factor V Activity POC ABG pH POC ABG pCO2 POC ABG pO2 Sodium 128 L Potassium Chloride 87.4 L Carbon Dioxide 20 L BUN 34 H Creatinine 2.9 H Glucose 127 H POC Glucose 158 H 160 H Lactic Acid Calcium 7.4 L Phosphorus Magnesium Direct Bilirubin ALT Alkaline Phosphatase Troponin T C-Reactive Protein Total Protein Albumin Triglycerides Cholesterol LDL Cholesterol Direct HDL Cholesterol Urine WBC (Auto) Urine Creatinine Urine Total Protein Vancomycin Trough Rheumatoid Factor Complement C4 Miscellaneous Test Crossmatch 10/04/16 10/05/16 10/05/16 23:25 04:30 05:00 WBC RBC 2.64 L Hgb 7.5 L Hct 22.6 L MCV MCH MCHC RDW 19.3 H Plt Count 80 L Lymph % (Auto) [place] % (Auto) Lymph # [place] # Seg Neutrophils % Seg Neuts % (Manual) Lymphocytes % (Manual) 12.0 L Monocytes % (Manual) Eosinophils % (Manual) Basophils % (Manual) Nucleated RBC % Seg Neutrophils # Seg Neutrophils # Man Lymphocytes # (Manual) Monocytes # (Manual) Eosinophils # (Manual) PT INR Fibrinogen dRVVT Confirm Interp Factor V Activity POC ABG pH 7.475 H POC ABG pCO2 33.3 L POC ABG pO2 140 H Sodium Potassium Chloride Carbon Dioxide BUN Creatinine Glucose POC Glucose 141 H Lactic Acid Calcium Phosphorus Magnesium Direct Bilirubin ALT Alkaline Phosphatase Troponin T C-Reactive Protein Total Protein Albumin Triglycerides Cholesterol LDL Cholesterol Direct HDL Cholesterol Urine WBC (Auto) Urine Creatinine Urine Total Protein Vancomycin Trough Rheumatoid Factor Complement C4 Miscellaneous Test Crossmatch 10/05/16 10/05/16 10/05/16 05:00 05:09 12:58 WBC RBC Hgb Hct MCV MCH MCHC RDW Plt Count Lymph % (Auto) [place] % (Auto) Lymph # [place] # Seg Neutrophils % Seg Neuts % (Manual) Lymphocytes % (Manual) Monocytes % (Manual) Eosinophils % (Manual) Basophils % (Manual) Nucleated RBC % Seg Neutrophils # Seg Neutrophils # Man Lymphocytes # (Manual) Monocytes # (Manual) Eosinophils # (Manual) PT INR Fibrinogen dRVVT Confirm Interp Factor V Activity POC ABG pH POC ABG pCO2 POC ABG pO2 Sodium 131 L Potassium Chloride 94.0 L Carbon Dioxide 20 L BUN 22 H Creatinine 2.0 H Glucose 123 H POC Glucose 166 H 179 H Lactic Acid Calcium 7.7 L Phosphorus 2.20 L D Magnesium Direct Bilirubin ALT Alkaline Phosphatase Troponin T C-Reactive Protein Total Protein Albumin Triglycerides Cholesterol LDL Cholesterol Direct HDL Cholesterol Urine WBC (Auto) Urine Creatinine Urine Total Protein Vancomycin Trough Rheumatoid Factor Complement C4 Miscellaneous Test Crossmatch 10/05/16 10/05/16 10/05/16 15:50 18:53 23:12 WBC RBC Hgb Hct MCV MCH MCHC RDW Plt Count Lymph % (Auto) [place] % (Auto) Lymph # [place] # Seg Neutrophils % Seg Neuts % (Manual) Lymphocytes % (Manual) Monocytes % (Manual) Eosinophils % (Manual) Basophils % (Manual) Nucleated RBC % Seg Neutrophils # Seg Neutrophils # Man Lymphocytes # (Manual) Monocytes # (Manual) Eosinophils # (Manual) PT INR Fibrinogen dRVVT Confirm Interp Factor V Activity POC ABG pH POC ABG pCO2 POC ABG pO2 Sodium Potassium Chloride Carbon Dioxide BUN Creatinine Glucose POC Glucose 150 H 164 H Lactic Acid Calcium Phosphorus Magnesium Direct Bilirubin ALT Alkaline Phosphatase Troponin T C-Reactive Protein Total Protein Albumin Triglycerides Cholesterol LDL Cholesterol Direct HDL Cholesterol Urine WBC (Auto) Urine Creatinine Urine Total Protein Vancomycin Trough Rheumatoid Factor Complement C4 Miscellaneous Test Crossmatch See Detail 10/06/16 10/06/16 10/06/16 03:50 03:50 04:53 WBC RBC 3.00 L Hgb 8.6 L Hct 25.8 L MCV MCH MCHC RDW 17.9 H Plt Count 65 L Lymph % (Auto) [place] % (Auto) Lymph # [place] # Seg Neutrophils % Seg Neuts % (Manual) 30.0 L Lymphocytes % (Manual) 5.0 L Monocytes % (Manual) Eosinophils % (Manual) Basophils % (Manual) Nucleated RBC % Seg Neutrophils # Seg Neutrophils # Man Lymphocytes # (Manual) 0.4 L Monocytes # (Manual) Eosinophils # (Manual) PT INR Fibrinogen dRVVT Confirm Interp Factor V Activity POC ABG pH 7.310 L POC ABG pCO2 49.0 H POC ABG pO2 Sodium 133 L Potassium Chloride 95.9 L Carbon Dioxide BUN 26 H Creatinine 2.0 H Glucose 116 H POC Glucose Lactic Acid Calcium 7.8 L Phosphorus Magnesium Direct Bilirubin ALT Alkaline Phosphatase Troponin T C-Reactive Protein Total Protein Albumin Triglycerides Cholesterol LDL Cholesterol Direct HDL Cholesterol Urine WBC (Auto) Urine Creatinine Urine Total Protein Vancomycin Trough Rheumatoid Factor Complement C4 Miscellaneous Test Crossmatch 10/06/16 10/06/16 10/06/16 05:23 11:52 18:34 WBC RBC Hgb Hct MCV MCH MCHC RDW Plt Count Lymph % (Auto) [place] % (Auto) Lymph # [place] # Seg Neutrophils % Seg Neuts % (Manual) Lymphocytes % (Manual) Monocytes % (Manual) Eosinophils % (Manual) Basophils % (Manual) Nucleated RBC % Seg Neutrophils # Seg Neutrophils # Man Lymphocytes # (Manual) Monocytes # (Manual) Eosinophils # (Manual) PT INR Fibrinogen dRVVT Confirm Interp Factor V Activity POC ABG pH POC ABG pCO2 POC ABG pO2 Sodium Potassium Chloride Carbon Dioxide BUN Creatinine Glucose POC Glucose 126 H 116 H 129 H Lactic Acid Calcium Phosphorus Magnesium Direct Bilirubin ALT Alkaline Phosphatase Troponin T C-Reactive Protein Total Protein Albumin Triglycerides Cholesterol LDL Cholesterol Direct HDL Cholesterol Urine WBC (Auto) Urine Creatinine Urine Total Protein Vancomycin Trough Rheumatoid Factor Complement C4 Miscellaneous Test Crossmatch 10/07/16 10/07/16 10/07/16 03:45 05:00 10:00 WBC 17.0 H RBC 2.68 L Hgb 7.3 L Hct 25.3 L MCV MCH 27 L MCHC 29 L RDW 19.6 H Plt Count 74 L Lymph % (Auto) [place] % (Auto) Lymph # [place] # Seg Neutrophils % Seg Neuts % (Manual) Lymphocytes % (Manual) 12.0 L Monocytes % (Manual) Eosinophils % (Manual) Basophils % (Manual) Nucleated RBC % 4.0 H Seg Neutrophils # Seg Neutrophils # Man 10.7 H Lymphocytes # (Manual) Monocytes # (Manual) Eosinophils # (Manual) PT INR Fibrinogen dRVVT Confirm Interp Factor V Activity POC ABG pH POC ABG pCO2 POC ABG pO2 Sodium 130 L Potassium 3.2 L Chloride 93.9 L Carbon Dioxide 20 L BUN 44 H Creatinine 2.7 H Glucose 129 H POC Glucose Lactic Acid Calcium 7.4 L Phosphorus Magnesium Direct Bilirubin ALT 6 L Alkaline Phosphatase 195 H Troponin T C-Reactive Protein Total Protein 4.9 L Albumin 1.0 L Triglycerides Cholesterol LDL Cholesterol Direct HDL Cholesterol Urine WBC (Auto) Urine Creatinine Urine Total Protein Vancomycin Trough Rheumatoid Factor Complement C4 Miscellaneous Test Flexitest 1 H Crossmatch 10/07/16 10/07/16 10/07/16 10:00 11:24 18:10 WBC RBC Hgb Hct MCV MCH MCHC RDW Plt Count Lymph % (Auto) [place] % (Auto) Lymph # [place] # Seg Neutrophils % Seg Neuts % (Manual) Lymphocytes % (Manual) Monocytes % (Manual) Eosinophils % (Manual) Basophils % (Manual) Nucleated RBC % Seg Neutrophils # Seg Neutrophils # Man Lymphocytes # (Manual) Monocytes # (Manual) Eosinophils # (Manual) PT INR Fibrinogen dRVVT Confirm Interp Factor V Activity POC ABG pH POC ABG pCO2 POC ABG pO2 Sodium Potassium Chloride Carbon Dioxide BUN Creatinine Glucose POC Glucose 116 H 130 H Lactic Acid Calcium Phosphorus Magnesium Direct Bilirubin ALT Alkaline Phosphatase Troponin T C-Reactive Protein 19.40 H Total Protein Albumin Triglycerides Cholesterol LDL Cholesterol Direct HDL Cholesterol Urine WBC (Auto) Urine Creatinine Urine Total Protein Vancomycin Trough Rheumatoid Factor Complement C4 Miscellaneous Test Crossmatch 10/07/16 10/08/16 10/08/16 18:30 00:00 04:00 WBC RBC Hgb Hct MCV MCH MCHC RDW Plt Count Lymph % (Auto) [place] % (Auto) Lymph # [place] # Seg Neutrophils % Seg Neuts % (Manual) Lymphocytes % (Manual) Monocytes % (Manual) Eosinophils % (Manual) Basophils % (Manual) Nucleated RBC % Seg Neutrophils # Seg Neutrophils # Man Lymphocytes # (Manual) Monocytes # (Manual) Eosinophils # (Manual) PT INR Fibrinogen dRVVT Confirm Interp Factor V Activity POC ABG pH POC ABG pCO2 POC ABG pO2 Sodium 132 L Potassium 3.3 L Chloride 93.6 L Carbon Dioxide 17 L BUN 59 H Creatinine 2.7 H Glucose 121 H POC Glucose 122 H Lactic Acid Calcium 7.6 L Phosphorus Magnesium Direct Bilirubin ALT Alkaline Phosphatase Troponin T C-Reactive Protein Total Protein Albumin Triglycerides Cholesterol LDL Cholesterol Direct HDL Cholesterol Urine WBC (Auto) > 182.0 H Urine Creatinine Urine Total Protein Vancomycin Trough Rheumatoid Factor Complement C4 Miscellaneous Test Crossmatch 10/08/16 10/08/16 10/08/16 04:30 05:30 11:51 WBC RBC 5.15 H Hgb 14.4 H D Hct 44.5 H D MCV MCH MCHC RDW 19.5 H Plt Count 56 L Lymph % (Auto) [place] % (Auto) Lymph # [place] # Seg Neutrophils % Seg Neuts % (Manual) 24.0 L Lymphocytes % (Manual) 8.0 L Monocytes % (Manual) Eosinophils % (Manual) Basophils % (Manual) Nucleated RBC % 9.0 H Seg Neutrophils # Seg Neutrophils # Man Lymphocytes # (Manual) 0.7 L Monocytes # (Manual) Eosinophils # (Manual) PT INR Fibrinogen dRVVT Confirm Interp Factor V Activity POC ABG pH POC ABG pCO2 POC ABG pO2 Sodium Potassium Chloride Carbon Dioxide BUN Creatinine Glucose POC Glucose 125 H 150 H Lactic Acid Calcium Phosphorus Magnesium Direct Bilirubin ALT Alkaline Phosphatase Troponin T C-Reactive Protein Total Protein Albumin Triglycerides Cholesterol LDL Cholesterol Direct HDL Cholesterol Urine WBC (Auto) Urine Creatinine Urine Total Protein Vancomycin Trough Rheumatoid Factor Complement C4 Miscellaneous Test Crossmatch 10/08/16 10/08/16 10/08/16 12:49 17:07 19:30 WBC RBC Hgb 7.1 L D Hct 22.4 L D MCV MCH MCHC RDW Plt Count Lymph % (Auto) [place] % (Auto) Lymph # [place] # Seg Neutrophils % Seg Neuts % (Manual) Lymphocytes % (Manual) Monocytes % (Manual) Eosinophils % (Manual) Basophils % (Manual) Nucleated RBC % Seg Neutrophils # Seg Neutrophils # Man Lymphocytes # (Manual) Monocytes # (Manual) Eosinophils # (Manual) PT INR Fibrinogen dRVVT Confirm Interp Factor V Activity POC ABG pH POC ABG pCO2 28.2 L POC ABG pO2 111 H Sodium Potassium Chloride Carbon Dioxide BUN Creatinine Glucose POC Glucose 145 H Lactic Acid Calcium Phosphorus Magnesium Direct Bilirubin ALT Alkaline Phosphatase Troponin T C-Reactive Protein Total Protein Albumin Triglycerides Cholesterol LDL Cholesterol Direct HDL Cholesterol Urine WBC (Auto) Urine Creatinine Urine Total Protein Vancomycin Trough Rheumatoid Factor Complement C4 Miscellaneous Test Crossmatch 10/08/16 10/09/16 10/09/16 19:30 03:45 03:45 WBC 12.6 H RBC 2.36 L Hgb 6.7 L Hct 21.1 L MCV MCH MCHC RDW 19.5 H Plt Count 75 L Lymph % (Auto) [place] % (Auto) Lymph # [place] # Seg Neutrophils % Seg Neuts % (Manual) Lymphocytes % (Manual) Monocytes % (Manual) 10.0 H Eosinophils % (Manual) Basophils % (Manual) Nucleated RBC % 3.0 H Seg Neutrophils # Seg Neutrophils # Man Lymphocytes # (Manual) Monocytes # (Manual) 1.3 H Eosinophils # (Manual) PT 18.0 H INR 1.41 H Fibrinogen dRVVT Confirm Interp Factor V Activity POC ABG pH POC ABG pCO2 POC ABG pO2 Sodium 135 L Potassium Chloride Carbon Dioxide 17 L BUN 81 H Creatinine 3.2 H Glucose 109 H POC Glucose Lactic Acid Calcium 7.4 L Phosphorus 4.60 H D Magnesium Direct Bilirubin ALT Alkaline Phosphatase Troponin T C-Reactive Protein Total Protein Albumin Triglycerides Cholesterol LDL Cholesterol Direct HDL Cholesterol Urine WBC (Auto) Urine Creatinine Urine Total Protein Vancomycin Trough Rheumatoid Factor Complement C4 Miscellaneous Test Crossmatch 10/09/16 10/09/16 10/09/16 03:45 05:14 07:20 WBC RBC Hgb Hct MCV MCH MCHC RDW Plt Count Lymph % (Auto) [place] % (Auto) Lymph # [place] # Seg Neutrophils % Seg Neuts % (Manual) Lymphocytes % (Manual) Monocytes % (Manual) Eosinophils % (Manual) Basophils % (Manual) Nucleated RBC % Seg Neutrophils # Seg Neutrophils # Man Lymphocytes # (Manual) Monocytes # (Manual) Eosinophils # (Manual) PT 19.0 H INR 1.51 H Fibrinogen dRVVT Confirm Interp Factor V Activity POC ABG pH POC ABG pCO2 POC ABG pO2 Sodium Potassium Chloride Carbon Dioxide BUN Creatinine Glucose POC Glucose 151 H Lactic Acid Calcium Phosphorus Magnesium Direct Bilirubin ALT Alkaline Phosphatase Troponin T C-Reactive Protein Total Protein Albumin Triglycerides Cholesterol LDL Cholesterol Direct HDL Cholesterol Urine WBC (Auto) Urine Creatinine Urine Total Protein Vancomycin Trough Rheumatoid Factor Complement C4 Miscellaneous Test Crossmatch See Detail 10/09/16 10/09/16 10/09/16 11:46 16:20 16:43 WBC RBC Hgb 7.2 L Hct 22.2 L MCV MCH MCHC RDW Plt Count Lymph % (Auto) [place] % (Auto) Lymph # [place] # Seg Neutrophils % Seg Neuts % (Manual) Lymphocytes % (Manual) Monocytes % (Manual) Eosinophils % (Manual) Basophils % (Manual) Nucleated RBC % Seg Neutrophils # Seg Neutrophils # Man Lymphocytes # (Manual) Monocytes # (Manual) Eosinophils # (Manual) PT INR Fibrinogen dRVVT Confirm Interp Factor V Activity POC ABG pH POC ABG pCO2 POC ABG pO2 Sodium Potassium Chloride Carbon Dioxide BUN Creatinine Glucose POC Glucose 133 H 141 H Lactic Acid Calcium Phosphorus Magnesium Direct Bilirubin ALT Alkaline Phosphatase Troponin T C-Reactive Protein Total Protein Albumin Triglycerides Cholesterol LDL Cholesterol Direct HDL Cholesterol Urine WBC (Auto) Urine Creatinine Urine Total Protein Vancomycin Trough Rheumatoid Factor Complement C4 Miscellaneous Test Crossmatch 10/10/16 10/10/16 10/10/16 05:00 05:00 11:19 WBC 18.5 H RBC 2.19 L Hgb 6.4 L Hct 19.6 L* MCV MCH MCHC RDW 19.3 H Plt Count 93 L Lymph % (Auto) [place] % (Auto) Lymph # [place] # Seg Neutrophils % Seg Neuts % (Manual) Lymphocytes % (Manual) 10.0 L Monocytes % (Manual) Eosinophils % (Manual) Basophils % (Manual) Nucleated RBC % 4.0 H Seg Neutrophils # Seg Neutrophils # Man 11.3 H Lymphocytes # (Manual) Monocytes # (Manual) Eosinophils # (Manual) PT INR Fibrinogen dRVVT Confirm Interp Factor V Activity POC ABG pH POC ABG pCO2 POC ABG pO2 Sodium Potassium 5.7 H D Chloride Carbon Dioxide 16 L BUN 94 H Creatinine 3.1 H Glucose 131 H POC Glucose 153 H Lactic Acid Calcium 8.2 L Phosphorus 5.10 H Magnesium 2.40 H Direct Bilirubin 0.3 H ALT < 5 L Alkaline Phosphatase 319 H Troponin T C-Reactive Protein Total Protein 5.1 L Albumin 1.0 L Triglycerides Cholesterol LDL Cholesterol Direct HDL Cholesterol Urine WBC (Auto) Urine Creatinine Urine Total Protein Vancomycin Trough Rheumatoid Factor Complement C4 Miscellaneous Test Crossmatch 10/10/16 10/10/16 10/11/16 17:50 23:30 04:15 WBC RBC Hgb Hct MCV MCH MCHC RDW Plt Count Lymph % (Auto) [place] % (Auto) Lymph # [place] # Seg Neutrophils % Seg Neuts % (Manual) Lymphocytes % (Manual) Monocytes % (Manual) Eosinophils % (Manual) Basophils % (Manual) Nucleated RBC % Seg Neutrophils # Seg Neutrophils # Man Lymphocytes # (Manual) Monocytes # (Manual) Eosinophils # (Manual) PT INR Fibrinogen dRVVT Confirm Interp Factor V Activity POC ABG pH POC ABG pCO2 POC ABG pO2 Sodium Potassium Chloride 96.4 L Carbon Dioxide 21 L BUN 57 H Creatinine 2.1 H Glucose 151 H POC Glucose 146 H 141 H Lactic Acid Calcium 8.3 L Phosphorus Magnesium Direct Bilirubin ALT Alkaline Phosphatase Troponin T C-Reactive Protein Total Protein Albumin Triglycerides Cholesterol LDL Cholesterol Direct HDL Cholesterol Urine WBC (Auto) Urine Creatinine Urine Total Protein Vancomycin Trough Rheumatoid Factor Complement C4 Miscellaneous Test Crossmatch 10/11/16 10/11/16 10/11/16 04:15 04:15 05:30 WBC 28.3 H RBC 3.12 L Hgb 9.3 L Hct 28.7 L D MCV MCH MCHC RDW 17.7 H Plt Count 128 L Lymph % (Auto) [place] % (Auto) Lymph # [place] # Seg Neutrophils % Seg Neuts % (Manual) Lymphocytes % (Manual) Monocytes % (Manual) Eosinophils % (Manual) Basophils % (Manual) Nucleated RBC % Seg Neutrophils # Seg Neutrophils # Man Lymphocytes # (Manual) Monocytes # (Manual) Eosinophils # (Manual) PT INR Fibrinogen dRVVT Confirm Interp Factor V Activity POC ABG pH POC ABG pCO2 POC ABG pO2 Sodium Potassium Chloride Carbon Dioxide BUN Creatinine Glucose POC Glucose 167 H Lactic Acid Calcium Phosphorus Magnesium Direct Bilirubin ALT Alkaline Phosphatase Troponin T C-Reactive Protein 15.80 H Total Protein Albumin Triglycerides Cholesterol LDL Cholesterol Direct HDL Cholesterol Urine WBC (Auto) Urine Creatinine Urine Total Protein Vancomycin Trough Rheumatoid Factor Complement C4 Miscellaneous Test Crossmatch 10/11/16 10/11/16 10/11/16 11:40 15:49 23:57 WBC RBC Hgb Hct MCV MCH MCHC RDW Plt Count Lymph % (Auto) [place] % (Auto) Lymph # [place] # Seg Neutrophils % Seg Neuts % (Manual) Lymphocytes % (Manual) Monocytes % (Manual) Eosinophils % (Manual) Basophils % (Manual) Nucleated RBC % Seg Neutrophils # Seg Neutrophils # Man Lymphocytes # (Manual) Monocytes # (Manual) Eosinophils # (Manual) PT INR Fibrinogen dRVVT Confirm Interp Factor V Activity POC ABG pH POC ABG pCO2 POC ABG pO2 Sodium Potassium Chloride Carbon Dioxide BUN Creatinine Glucose POC Glucose 139 H 168 H 161 H Lactic Acid Calcium Phosphorus Magnesium Direct Bilirubin ALT Alkaline Phosphatase Troponin T C-Reactive Protein Total Protein Albumin Triglycerides Cholesterol LDL Cholesterol Direct HDL Cholesterol Urine WBC (Auto) Urine Creatinine Urine Total Protein Vancomycin Trough Rheumatoid Factor Complement C4 Miscellaneous Test Crossmatch 10/12/16 10/12/16 10/12/16 04:40 04:40 05:44 WBC 22.5 H RBC 2.88 L Hgb 8.8 L Hct 26.8 L MCV MCH MCHC RDW 17.8 H Plt Count Lymph % (Auto) [place] % (Auto) Lymph # [place] # Seg Neutrophils % Seg Neuts % (Manual) Lymphocytes % (Manual) Monocytes % (Manual) Eosinophils % (Manual) Basophils % (Manual) Nucleated RBC % Seg Neutrophils # Seg Neutrophils # Man Lymphocytes # (Manual) Monocytes # (Manual) Eosinophils # (Manual) PT INR Fibrinogen dRVVT Confirm Interp Factor V Activity POC ABG pH POC ABG pCO2 POC ABG pO2 Sodium 134 L Potassium Chloride 93.0 L Carbon Dioxide BUN 74 H Creatinine 2.5 H Glucose 137 H POC Glucose 158 H Lactic Acid Calcium 8.2 L Phosphorus Magnesium Direct Bilirubin ALT Alkaline Phosphatase Troponin T C-Reactive Protein Total Protein Albumin Triglycerides Cholesterol LDL Cholesterol Direct HDL Cholesterol Urine WBC (Auto) Urine Creatinine Urine Total Protein Vancomycin Trough Rheumatoid Factor Complement C4 Miscellaneous Test Crossmatch 10/12/16 10/12/16 10/12/16 12:27 18:18 23:46 WBC RBC Hgb Hct MCV MCH MCHC RDW Plt Count Lymph % (Auto) [place] % (Auto) Lymph # [place] # Seg Neutrophils % Seg Neuts % (Manual) Lymphocytes % (Manual) Monocytes % (Manual) Eosinophils % (Manual) Basophils % (Manual) Nucleated RBC % Seg Neutrophils # Seg Neutrophils # Man Lymphocytes # (Manual) Monocytes # (Manual) Eosinophils # (Manual) PT INR Fibrinogen dRVVT Confirm Interp Factor V Activity POC ABG pH POC ABG pCO2 POC ABG pO2 Sodium Potassium Chloride Carbon Dioxide BUN Creatinine Glucose POC Glucose 153 H 140 H 150 H Lactic Acid Calcium Phosphorus Magnesium Direct Bilirubin ALT Alkaline Phosphatase Troponin T C-Reactive Protein Total Protein Albumin Triglycerides Cholesterol LDL Cholesterol Direct HDL Cholesterol Urine WBC (Auto) Urine Creatinine Urine Total Protein Vancomycin Trough Rheumatoid Factor Complement C4 Miscellaneous Test Crossmatch 10/13/16 10/13/16 10/13/16 06:22 12:29 18:09 WBC RBC Hgb Hct MCV MCH MCHC RDW Plt Count Lymph % (Auto) [place] % (Auto) Lymph # [place] # Seg Neutrophils % Seg Neuts % (Manual) Lymphocytes % (Manual) Monocytes % (Manual) Eosinophils % (Manual) Basophils % (Manual) Nucleated RBC % Seg Neutrophils # Seg Neutrophils # Man Lymphocytes # (Manual) Monocytes # (Manual) Eosinophils # (Manual) PT INR Fibrinogen dRVVT Confirm Interp Factor V Activity POC ABG pH POC ABG pCO2 POC ABG pO2 Sodium Potassium Chloride Carbon Dioxide BUN Creatinine Glucose POC Glucose 165 H 193 H 166 H Lactic Acid Calcium Phosphorus Magnesium Direct Bilirubin ALT Alkaline Phosphatase Troponin T C-Reactive Protein Total Protein Albumin Triglycerides Cholesterol LDL Cholesterol Direct HDL Cholesterol Urine WBC (Auto) Urine Creatinine Urine Total Protein Vancomycin Trough Rheumatoid Factor Complement C4 Miscellaneous Test Crossmatch 10/13/16 10/13/16 10/14/16 Unknown Unknown 05:38 WBC 23.4 H RBC 2.83 L Hgb 8.7 L Hct 26.1 L MCV MCH MCHC RDW 18.1 H Plt Count Lymph % (Auto) [place] % (Auto) Lymph # [place] # Seg Neutrophils % Seg Neuts % (Manual) Lymphocytes % (Manual) Monocytes % (Manual) Eosinophils % (Manual) Basophils % (Manual) Nucleated RBC % Seg Neutrophils # Seg Neutrophils # Man Lymphocytes # (Manual) Monocytes # (Manual) Eosinophils # (Manual) PT INR Fibrinogen dRVVT Confirm Interp Factor V Activity POC ABG pH POC ABG pCO2 POC ABG pO2 Sodium Potassium Chloride 95.8 L Carbon Dioxide BUN 82 H Creatinine 2.6 H Glucose 152 H POC Glucose 195 H Lactic Acid Calcium Phosphorus Magnesium Direct Bilirubin ALT Alkaline Phosphatase Troponin T C-Reactive Protein Total Protein Albumin Triglycerides Cholesterol LDL Cholesterol Direct HDL Cholesterol Urine WBC (Auto) Urine Creatinine Urine Total Protein Vancomycin Trough Rheumatoid Factor Complement C4 Miscellaneous Test Crossmatch 10/14/16 10/14/16 06:35 08:10 WBC 20.7 H RBC 2.81 L Hgb 8.4 L Hct 27.2 L MCV MCH MCHC RDW 19.4 H Plt Count Lymph % (Auto) [place] % (Auto) Lymph # [place] # Seg Neutrophils % Seg Neuts % (Manual) Lymphocytes % (Manual) Monocytes % (Manual) Eosinophils % (Manual) Basophils % (Manual) Nucleated RBC % Seg Neutrophils # Seg Neutrophils # Man Lymphocytes # (Manual) Monocytes # (Manual) Eosinophils # (Manual) PT INR Fibrinogen dRVVT Confirm Interp Factor V Activity POC ABG pH POC ABG pCO2 POC ABG pO2 Sodium Potassium Chloride Carbon Dioxide BUN 58 H Creatinine 1.9 H Glucose 169 H POC Glucose Lactic Acid Calcium Phosphorus Magnesium Direct Bilirubin ALT Alkaline Phosphatase Troponin T C-Reactive Protein Total Protein Albumin Triglycerides Cholesterol LDL Cholesterol Direct HDL Cholesterol Urine WBC (Auto) Urine Creatinine Urine Total Protein Vancomycin Trough Rheumatoid Factor Complement C4 Miscellaneous Test Crossmatch Allied health notes reviewed: RT
[2016-10-14] MEDS ORDERED: INTRALIPID 20% 250 ML IV SCH (20:00)
[2016-10-14] MEDS ORDERED: TPN ADULT 2,016 ML IV SCH (20:00)
[2016-10-15] MEDS: LOPRESSOR IV SCH ×5 (02:05→18:41)
[2016-10-15] MEDS: APRESOLINE IV PRN ×3 (04:52→16:32)
[2016-10-15] MEDS: HumuLIN R SUB-Q SCH ×3 (06:25→18:32)
[2016-10-15 06:59] LABS: BUN/Creatinine Ratio 31.73; Calcium 9.2 mg/dL (8.4-10.2); Hematocrit 25.7 % (30.3-42.9); Hemoglobin 8.5 gm/dl (10.1-14.3); Mean Corpuscular HGB Conc 33 % (30-34); Mean Corpuscular Hemoglobin 31 pg (28-32); Mean Corpuscular Volume 92 fl (79-97); Platelet Count 256 K/mm3 (140-440); Red Blood Count 2.78 M/mm3 (3.65-5.03); Red Cell Distribution Width 18.7 % (13.2-15.2)
[2016-10-15] MEDS: LOPRESSOR IV PRN (08:51)
--- NOTE | 2016-10-15 10:00 | Progress Note ---
Assessment and Plan Assessment and plan: Assessment and plan: Acute hypoxic respiratory failure On mechanical ventilation Status post trach Acute massive left MCA CVA Status post TPA Aspirin/statin Supportive care Toxic metabolic Encephalopathy Multifactorial. Still not following commands Dislodged PEG Status post wedge gastrectomy, repair of gastric perforation, abdominal washout and drain placement Surgery following Severe sepsis with septic shock UTI/candidemia/peritonitis due to gastric perforation from dislodged PEG Off pressors She is now on Meropenem as per ID recommendation Candidemia. completed micofungin Peritonitis Toxic metabolic encephalopathy,unresponsive. neurology following Acute blood loss anemia requiring multiple PRBC transfusions. Hemoglobin 8.5 today . Repeat stool occult blood positive. GI Physician was following, now signed off. Monitor H&H closely, Fever,recurrent due to sepsis. CT Abdomen negative for sepsis Acute on chronic kidney disease, had dialysis . Creatinine 2.3 today. Paroxysmal A. fib Status post failed conversion on 09/25 Continue Amiodarone drip No anticoagulation due to anemia/thrombocytopenia, massive CVA Diabetes mellitus type 2 Insulin/SSI Leukocytosis . WBC 23.4 today Severe protein caloric malnutrition Currently on TPN Extensive back skin peeling, much improved. Thrombocytopenia DVT prophylaxis SCDs, no pharmacological agent given anemia requiring multiple PRBC transfusions , thrombocytopenia, massive stroke Hyperkalemia. Resolved after dialysis Full code status Prognosis guarded Had a family meeting Monday in which I discussed plan. Present at meeting was the Risk management staff, remedial project manager and myself, patient's son and patients ' sister. addendum; Had another family meeting yesterday at 10:00am with Dr. Nazario, myself, Mash Tub Cooker Operator and patient's daughter. We discussed diagnosis,plan and prognosis, and all her questions were answered. History Interval history: Patient with multi-organ failure, Recurrent fever Still does not follow commands Hospitalist Physical - Physical exam Narrative exam: Gen appearance: Trach, not in acute distress HEENT: Atraumatic Neck: Tracheostomy Lungs: Clear to auscultation bilaterally, no crackles or wheezes Heart :S1 and S2 irregular, no murmurs, rubs or gallop Abdomen: Soft, surgical drain, dressing over left upper quadrant, bowel sounds present Extremities : bilateral edema, upper and lower ext Neuro: Does not follow commands - Constitutional Vitals: Temp Pulse Resp BP Pulse Ox 99.7 F H 136 H 24 160/73 99 10/15/16 07:47 10/15/16 08:51 10/15/16 08:00 10/15/16 08:51 10/15/16 08:04 General appearance: Present: mild distress, obese, other (on vent, non- responsive) Results - Labs CBC & Chem 7: 10/15/16 Unknown 10/15/16 Unknown Labs: Laboratory Last Values WBC 23.4 K/mm3 (4.5-11.0) H 10/15/16 Unknown RBC 2.78 M/mm3 (3.65-5.03) L 10/15/16 Unknown Hgb 8.5 gm/dl (10.1-14.3) L 10/15/16 Unknown Hct 25.7 % (30.3-42.9) L 10/15/16 Unknown MCV 92 fl (79-97) 10/15/16 Unknown MCH 31 pg (28-32) 10/15/16 Unknown MCHC 33 % (30-34) 10/15/16 Unknown RDW 18.7 % (13.2-15.2) H 10/15/16 Unknown Plt Count 256 K/mm3 (140-440) 10/15/16 Unknown Lymph % (Auto) 6.9 % (13.4-35.0) L 09/21/16 07:45 [place] % (Auto) 0.5 % (0.0-7.3) 10/03/16 05:10 Eos % (Auto) 1.3 % (0.0-4.3) 10/03/16 05:10 Baso % (Auto) 0.2 % (0.0-1.8) 09/21/16 07:45 Lymph # 0.9 K/mm3 (1.2-5.4) L 09/21/16 07:45 [place] # 0.1 K/mm3 (0.0-0.8) 10/03/16 05:10 Eos # 0.2 K/mm3 (0.0-0.4) 10/03/16 05:10 Baso # 0.0 K/mm3 (0.0-0.1) 10/03/16 05:10 Add Manual Diff Complete 10/10/16 05:00 Total Counted 100 10/10/16 05:00 Seg Neutrophils % [employer] 10/03/16 05:10 Seg Neuts % (Manual) 61.0 % (40.0-70.0) 10/10/16 05:00 Band Neutrophils % 24.0 % 10/10/16 05:00 Lymphocytes % (Manual) 10.0 % (13.4-35.0) L 10/10/16 05:00 Reactive Lymphs % (Man) 0 % 10/10/16 05:00 Monocytes % (Manual) 2.0 % (0.0-7.3) 10/10/16 05:00 Eosinophils % (Manual) 0 % (0.0-4.3) 10/10/16 05:00 Basophils % (Manual) 0 % (0.0-1.8) 10/10/16 05:00 Metamyelocytes % 3.0 % 10/10/16 05:00 Myelocytes % 0 % 10/10/16 05:00 Promyelocytes % 0 % 10/10/16 05:00 Blast Cells % 0 % 10/10/16 05:00 Nucleated RBC % 4.0 % (0.0-0.9) H 10/10/16 05:00 Seg Neutrophils # 11.9 K/mm3 (1.8-7.7) H 10/03/16 05:10 Seg Neutrophils # Man 11.3 K/mm3 (1.8-7.7) H 10/10/16 05:00 Band Neutrophils # 4.4 K/mm3 10/10/16 05:00 Lymphocytes # (Manual) 1.9 K/mm3 (1.2-5.4) 10/10/16 05:00 Abs React Lymphs (Man) 0.0 K/mm3 10/10/16 05:00 Monocytes # (Manual) 0.4 K/mm3 (0.0-0.8) 10/10/16 05:00 Eosinophils # (Manual) 0.0 K/mm3 (0.0-0.4) 10/10/16 05:00 Basophils # (Manual) 0.0 K/mm3 (0.0-0.1) 10/10/16 05:00 Metamyelocytes # 0.6 K/mm3 10/10/16 05:00 Myelocytes # 0.0 K/mm3 10/10/16 05:00 Promyelocytes # 0.0 K/mm3 10/10/16 05:00 Blast Cells # 0.0 K/mm3 10/10/16 05:00 Pathologist Review 09/13/16 04:00 WBC Morphology Not Reportable 10/10/16 05:00 Hypersegmented Neuts Not Reportable 10/10/16 05:00 Hyposegmented Neuts Not Reportable 10/10/16 05:00 Hypogranular Neuts Not Reportable 10/10/16 05:00 Smudge Cells Not Reportable 10/10/16 05:00 Toxic Granulation Not Reportable 10/10/16 05:00 Toxic Vacuolation Not Reportable 10/10/16 05:00 Dohle Bodies Not Reportable 10/10/16 05:00 Pelger-Huet Anomaly Not Reportable 10/10/16 05:00 Jasmina Rods Not Reportable 10/10/16 05:00 Platelet Estimate Consistent w auto 10/10/16 05:00 Clumped Platelets Not Reportable 10/10/16 05:00 Plt Clumps, EDTA Not Reportable 10/10/16 05:00 Large Platelets Not Reportable 10/10/16 05:00 Giant Platelets Not Reportable 10/10/16 05:00 Platelet Satelliting Not Reportable 10/10/16 05:00 Plt Morphology Comment Not Reportable 10/10/16 05:00 RBC Morphology Not Reportable 10/10/16 05:00 Dimorphic RBCs Not Reportable 10/10/16 05:00 Polychromasia Rare 10/10/16 05:00 Hypochromasia 1+ 10/10/16 05:00 Poikilocytosis Not Reportable 10/10/16 05:00 Anisocytosis 1+ 10/10/16 05:00 Microcytosis Not Reportable 10/10/16 05:00 Macrocytosis 1+ 10/10/16 05:00 Spherocytes Not Reportable 10/10/16 05:00 Pappenheimer Bodies Not Reportable 10/10/16 05:00 Sickle Cells Not Reportable 10/10/16 05:00 Target Cells Not Reportable 10/10/16 05:00 Tear Drop Cells Not Reportable 10/10/16 05:00 Ovalocytes Not Reportable 10/10/16 05:00 Stomatocytes Few 10/06/16 03:50 Helmet Cells Not Reportable 10/10/16 05:00 Monet-Holloway Bodies Not Reportable 10/10/16 05:00 [place] Rings Not Reportable 10/10/16 05:00 Chuck Cells Not Reportable 10/10/16 05:00 Bite Cells Not Reportable 10/10/16 05:00 Crenated Cell Not Reportable 10/10/16 05:00 Elliptocytes Not Reportable 10/10/16 05:00 Acanthocytes (Spur) Not Reportable 10/10/16 05:00 Rouleaux Not Reportable 10/10/16 05:00 Hemoglobin C Crystals Not Reportable 10/10/16 05:00 Schistocytes Not Reportable 10/10/16 05:00 Malaria parasites Not Reportable 10/10/16 05:00 ESR > 140.0 mm/Hr (0-20) 09/08/16 11:48 Jun Bodies Not Reportable 10/10/16 05:00 Hem Pathologist Commnt No 10/10/16 05:00 PT 19.0 Sec. (12.2-14.9) H 10/09/16 03:45 INR 1.51 (0.87-1.13) H 10/09/16 03:45 APTT 33.0 Sec. (24.2-36.6) 10/09/16 03:45 Thrombin Time 16.8 Sec. (15.1-19.6) 09/03/16 00:10 Fibrinogen 750 mg/dl (211-480) H 09/08/16 11:48 Lupus Anticoagulant see below 09/12/16 09:59 LA PTT Baseline See scanned report 09/12/16 09:59 dRVVT Confirm Interp Positive (Negative) H 09/12/16 09:59 dRVVT Screen 50:50 See scanned report 09/12/16 09:59 dRVVT Mix Interpret See scanned report 09/12/16 09:59 Protein C Antigen 122 % (70-140) 09/08/16 15:35 Free Protein S 97 % normal (50-147) 09/08/16 15:35 Total Protein S 109 % (70-140) 09/08/16 15:35 Antithrombin III Ag 100 % (80-120) 09/08/16 15:35 Heparin Anti-Xa, Unfract Negative (Negative) 09/29/16 13:35 Factor V Activity 182 % (65-150) H 09/08/16 15:35 POC ABG pH 7.437 (7.35-7.45) 10/08/16 12:49 POC ABG pCO2 28.2 (35-45) L 10/08/16 12:49 POC ABG pO2 111 (80-105) H 10/08/16 12:49 POC ABG HCO3 19.0 10/08/16 12:49 POC ABG Total CO2 20 10/08/16 12:49 POC ABG O2 Sat 99 10/08/16 12:49 POC ABG Base Excess -5 10/08/16 12:49 FiO2 28 % 10/08/16 12:49 Sodium 140 mmol/L (137-145) 10/15/16 Unknown Potassium 4.1 mmol/L (3.6-5.0) 10/15/16 Unknown Chloride 98.5 mmol/L (98-107) 10/15/16 Unknown Carbon Dioxide 25 mmol/L (22-30) 10/15/16 Unknown Anion Gap 21 mmol/L 10/15/16 Unknown BUN 73 mg/dL (7-17) H 10/15/16 Unknown Creatinine 2.3 mg/dL (0.7-1.2) H 10/15/16 Unknown Estimated GFR 28 ml/min 10/15/16 Unknown BUN/Creatinine Ratio 31.73 % 10/15/16 Unknown Glucose 120 mg/dL (65-100) H 10/15/16 Unknown POC Glucose 151 (70-105) H 10/15/16 05:06 Osmolality 351 Mosm/kg 09/16/16 11:47 Lactic Acid 4.50 mmol/L (0.7-2.0) H* 09/28/16 07:25 Calcium 9.2 mg/dL (8.4-10.2) 10/15/16 Unknown Phosphorus 2.90 mg/dL (2.5-4.5) 10/15/16 Unknown Magnesium 1.80 mg/dL (1.7-2.3) 10/15/16 Unknown Total Bilirubin 0.40 mg/dL (0.1-1.2) 10/10/16 05:00 Direct Bilirubin 0.3 mg/dL (0-0.2) H 10/10/16 05:00 Indirect Bilirubin 0.1 mg/dL 10/10/16 05:00 AST 21 units/L (5-40) 10/10/16 05:00 ALT < 5 units/L (7-56) L 10/10/16 05:00 Alkaline Phosphatase 319 units/L (35-129) H 10/10/16 05:00 Ammonia 27.0 umol/L (25-60) 09/07/16 08:37 Total Creatine Kinase 121 units/L (30-135) 09/29/16 20:12 CK-MB (CK-2) < 1.0 ng/mL (0.0-4.0) 09/29/16 20:12 CK-MB (CK-2) Rel Index 0.8 (0-4) 09/29/16 20:12 Troponin T 0.204 ng/mL (0.00-0.029) H* 09/29/16 20:12 C-Reactive Protein 15.80 mg/dL (0.00-1.30) H 10/11/16 04:15 Total Protein 5.1 g/dL (6.3-8.2) L 10/10/16 05:00 Albumin 1.0 g/dL (3.9-5) L 10/10/16 05:00 Albumin/Globulin Ratio 0.2 % 10/10/16 05:00 Triglycerides 137 mg/dL (2-149) 09/29/16 20:12 Cholesterol 31 mg/dL (50-199) L 09/29/16 20:12 LDL Cholesterol Direct 4 mg/dL (50-130) L 09/29/16 20:12 HDL Cholesterol 3 mg/dL (40-59) L 09/29/16 20:12 Cholesterol/HDL Ratio 10.33 % 09/29/16 20:12 Angiotensin Convert Enz See scanned report 09/08/16 11:48 Renin 0.99 ng/mL/h (0.25-5.82) 10/07/16 10:56 Aldosterone <1 ng/dL () 10/07/16 10:56 Aldosterone/Renin Dir see below 10/07/16 10:56 Serotonin Release Assay See scanned report 09/29/16 13:35 TSH 1.010 mlU/mL (0.270-4.200) 09/07/16 08:37 HCG, Qual Negative (Negative) 09/03/16 00:10 Urine Color [place] (Yellow) 10/07/16 18:30 Urine Turbidity Turbid (Clear) 10/07/16 18:30 Urine pH 7.0 (5.0-7.0) 10/07/16 18:30 Ur Specific [place] 1.012 (1.003-1.030) 10/07/16 18:30 Urine Protein 100 mg/dl mg/dL (Negative) 10/07/16 18:30 Urine Glucose (UA) Neg mg/dL (Negative) 10/07/16 18:30 Urine Ketones Neg mg/dL (Negative) 10/07/16 18:30 Urine Blood Lg (Negative) 10/07/16 18:30 Urine Nitrite Neg (Negative) 10/07/16 18:30 Urine Bilirubin Neg (Negative) 10/07/16 18:30 Urine Urobilinogen < 2.0 mg/dL (<2.0) 10/07/16 18:30 Ur Leukocyte Esterase Lg (Negative) 10/07/16 18:30 Urine WBC (Auto) > 182.0 /HPF (0.0-6.0) H 10/07/16 18:30 Urine RBC (Auto) > 182.0 /HPF (0.0-6.0) 10/07/16 18:30 U Epithel Cells (Auto) 1.0 /HPF (0-13.0) 10/07/16 18:30 Urine Bacteria (Auto) 3+ /HPF (Negative) 10/07/16 18:30 Urine WBC Clumps 2+ /HPF 09/07/16 02:47 Hyaline Casts 4 /LPF 09/07/16 02:47 Urine Mucus Few /HPF 10/07/16 18:30 Urine Yeast (Budding) 3+ /HPF 10/07/16 18:30 Urine Eosinophils None seen (None Seen) 09/07/16 16:00 Urine Total Volume 1350 09/21/16 12:00 Urine Creatinine 54.8 mg/dL (0.1-20.0) H 09/21/16 12:00 Height (in) 67.0 inches 09/21/16 12:00 Weight (lb) 92.0 lbs 09/21/16 12:00 Creatinine Clearance 15 09/21/16 12:00 Urine Sodium 36 mEq/L 09/16/16 19:19 Urine Total Protein 16 mg/dL (5-11.8) H 09/16/16 19:19 Vancomycin Trough 2.3 ug/mL (5.0-20.0) L 09/21/16 13:00 Random Vancomycin 2.3 ug/mL (0-40.0) 09/09/16 03:00 Urine Opiates Screen Presumptive negative 09/03/16 15:11 Urine Methadone Screen Presumptive positive 09/03/16 15:11 Ur Barbiturates Screen Presumptive positive 09/03/16 15:11 Ur Phencyclidine Scrn Presumptive negative 09/03/16 15:11 Ur Amphetamines Screen Presumptive negative 09/03/16 15:11 U Benzodiazepines Scrn Presumptive negative 09/03/16 15:11 Urine Cocaine Screen Presumptive negative 09/03/16 15:11 U Marijuana (THC) Screen Presumptive positive 09/03/16 15:11 Drugs of Abuse Note Disclamer 09/03/16 15:11 Rheumatoid Factor 24 IU/ml (0-13) H 09/08/16 11:48 SAHIL Screen Negative (Negative) 09/07/16 09:20 Proteinase 3 (PR3) Ab <1.0 AI (<1.0) 09/07/16 09:20 Myeloperoxidase Ab <1.0 AI (<1.0) 09/07/16 09:20 Sjogren's Antibody <1.0 AI (<1.0) 09/08/16 15:35 Scl-70 Scleroderma Ab <1.0 AI (<1.0) 09/08/16 15:35 Centromere B Antibody <1.0 AI (<1.0) 09/08/16 12:02 Heparin-induced Plt Ab Negative (Negative) 09/29/16 13:35 UF Heparin High Dose 11 % Release 09/29/16 13:35 SDUHIR UFH Low Dose 0.1 6 % Release 09/29/16 13:35 SUDHIR UFH Low Dose 0.5 8 % Release 09/29/16 13:35 Cardiolipid IgG Ab <14 GPL (<=14) 09/12/16 09:59 Cardiolipid IgA Ab <11 APL (<=11) 09/12/16 09:59 Cardiolipid IgM Ab <12 MPL (<=12) 09/12/16 09:59 Complement C3 148 mg/dL (90-180) 09/07/16 09:20 Complement C4 58 mg/dL (16-47) H 09/07/16 09:20 RPR Nonreactive (Nonreactive) 09/08/16 11:48 Hepatitis A IgM Ab Non-reactive (NonReactive) 09/24/16 14:40 Hep Bs Antigen Non-reactive (Negative) 09/24/16 14:40 Hep B Core IgM Ab Non-reactive (NonReactive) 09/24/16 14:40 Hepatitis C Antibody Non-reactive (NonReactive) 09/24/16 14:40 HIV 1&2 Antibody Rapid Non react (Non React) 09/08/16 11:48 HIV P24 Antigen Non react (Non React) 09/08/16 11:48 Miscellaneous Test Flexitest 1 H 10/07/16 03:45 Blood Type A POSITIVE 10/09/16 07:20 Antibody Screen Negative 10/09/16 07:20 DELORIS Antibody Screen Negative 09/25/16 10:30 Crossmatch See Detail 10/09/16 07:20
[2016-10-15] MEDS: MERREM 1,000 MG in NACL 0.9% 100 ML IV SCH (10:04)
--- NOTE | 2016-10-15 11:18 | Progress Note ---
Assessment and Plan Assessment: 1) Recurrent Sepsis: still leukocytosis and fever ? unclear source. -Current sepsis etiology - peritonitis from gastric perforation +/- UTI. -Initial sepsis etiology - presumed aspiration pneumonia, and another septic episode on 09/23 from Candidemia. -CRP 19 --> 22 -Procalcitonin=24 -repeat CT abdomen no leak no abscess -repeat blood cx - neg 2) Peritonitis: from gastric perforation from dislodged PEG with significant ascites -S/P exlap, repair of gastric perforation with wedge gastrectomy, abdominal washout, drain placement on 10/05. 3) Candidemia: -Blood cultures positive for Silvia albicans on 09/23 -Blood cultures positive on 09/25 -Blood cutlures negative on 09/30 -PICC line changed on 10/03 -Source ? gastric perf (PEG placed on 09/20) +/- TPN +/- central lines -TTE 10/07 no vegetations -PICC exchanged on 10/03 -fully treated with micafungin for 14 days last day 10/13 4) CA-UTI s/p gutierrez exchanged 5) Diarrhea - ? etiology ? antibiotic-induced, not better 6) Initial presumed aspiration pneumonia 7) Presumed UTI: urine cx 09/23 multiple species 8) Respiratory failure s/p trach 9) Recent CVA-left MCA CVA 10) Uncontrolled HTN 11) Acute on CKD 12) Extensive back skin peeling ? burn from gastric secretions. Doubt allergic reaction 13) Severe anemia; ? from GI bleed Plan: -follow-up repeat blood cultures and procalcitonin in view of fever and persistent leukocytosis -continue meropenem to cover peritonitis (was on zosyn before) day 9 of 14 -check legs US r/o DVT in view of persistent fever Thank you Dr Ribeiro for your consultation, will follow up with you. Pauline Carias MD Infectious Diseases Specialist [facility] ([facility] M [phone] O [phone] Subjective Date of service: 10/15/16 Principal diagnosis: hematochezia Interval history: Somnolent open eyes spontaneously, not following commands, on the vent via trach , on vent CPAP mode, no pressors. Still fever at 100.1 last 24h. +oliguric. + diarrhea Microbiology: Blood cultures: 09/13 neg / Silvia albicans 09/25 Silvia 09/29 neg 10/07 NGTD Urine cultures: 09/10 neg 09/13 neg 8/4 10-100K mixed species 10/07 pending Respiratory cultures: 09/07 neg 09/13 neg 8 neg Wound cultures: Stool cultures: Current Antimicrobials: Meropenem 10/10 Previous Antimicrobials: Zosyn 10/07 Vancomycin PO 10/01 Metronidazole 09/25 Micafungin 09/27-10/13 Objective - Exam Narrative Exam: General appearance: alert, non verbal, on the vent via trach no following commands Eyes: anicteric sclera, moist conjunctivae; PERRLA HENT: Atraumatic; oropharynx limited; Normal external ears. +NGT with greenish secretion Neck: +trach in place; supple, no thyromegaly or lymphadenopathy Lungs: coarse BS bilateral CV: tachycardic Abdomen: Soft, non-tender, +drain with purulent drainage, + diarrhea via rectal tube leaking. +old PEG site no drainage. Extremities: +peripheral edema no extremity lymphadenopathy Skin: Julian sub mammary ulcers, extensive skin peeling on back Psych: somnolent . Neuro: somnolent non verbal on the vent. Lines: left arm PICC placed on 10/03 - Constitutional Vitals: Vital Signs Temp Pulse Resp BP Pulse Ox 99.7 F H 122 H 24 157/81 99 10/15/16 07:47 10/15/16 10:00 10/15/16 10:00 10/15/16 10:00 10/15/16 10:00 Temperature -Last 24 Hours Temperature 99.7 F Temperature 100.1 F Temperature 100.3 F Temperature 99.7 F Temperature 97.5 F Temperature 98.1 F - Labs CBC & Chem 7: 10/15/16 Unknown 10/15/16 Unknown Labs: Abnormal lab results 10/14/16 10/14/16 10/14/16 Range/Units 11:44 17:13 23:28 WBC (4.5-11.0) K/mm3 RBC (3.65-5.03) M/mm3 Hgb (10.1-14.3) gm/dl Hct (30.3-42.9) % RDW (13.2-15.2) % BUN (7-17) mg/dL Creatinine (0.7-1.2) mg/dL Glucose (65-100) mg/dL POC Glucose 174 H 121 H 151 H (70-105) 10/15/16 10/15/16 10/15/16 Range/Units 05:06 Unknown Unknown WBC 23.4 H (4.5-11.0) K/mm3 RBC 2.78 L (3.65-5.03) M/mm3 Hgb 8.5 L (10.1-14.3) gm/dl Hct 25.7 L (30.3-42.9) % RDW 18.7 H (13.2-15.2) % BUN 73 H (7-17) mg/dL Creatinine 2.3 H (0.7-1.2) mg/dL Glucose 120 H (65-100) mg/dL POC Glucose 151 H (70-105)
--- NOTE | 2016-10-15 11:23 | Progress Note ---
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 appearance: Patient lying in bed, no apparent distress, 4. restraints HEENT: Normocephalic, atraumatic, pupils equally round and reactive to light, extraocular movement intact, and no sclericterus,. No JVD or thyromegaly or nodule,neck supple, no carotid bruit ,mucous membranes moist, unable to examine oral cavity Heart: S1, S2, regular rate and rhythm Lungs: Clear to auscultation bilaterally, breathing comfortable Abdomen: Positive bowel sounds, nontender, nondistended, no organomegaly Extremity: No edema, cyanosis, clubbing Skin: No rash, nodules, warm, dry Neuro: Difficult to assess, facial droop, moves all 4 extremities - Vital Signs Vital signs: Vital Signs - 12hr 10/14/16 10/14/16 10/15/16 23:28 23:30 00:00 Temperature 100.3 F H Pulse Rate 127 H 120 H 121 H Pulse Rate [ From Monitor] Pulse Rate [ Left Dorsalis Pedis] Pulse Rate [ Right Dorsalis Pedis] Pulse Rate [ Right Radial] Respiratory 28 H 26 H 30 H Rate Respiratory Rate [ Generalized] Blood Pressure 175/92 174/95 178/94 O2 Sat by Pulse 99 99 99 Oximetry 10/15/16 10/15/16 10/15/16 00:30 01:00 01:30 Temperature Pulse Rate 124 H 126 H 122 H Pulse Rate [ From Monitor] Pulse Rate [ Left Dorsalis Pedis] Pulse Rate [ Right Dorsalis Pedis] Pulse Rate [ Right Radial] Respiratory 34 H 29 H 23 Rate Respiratory Rate [ Generalized] Blood Pressure 179/99 187/97 171/90 O2 Sat by Pulse 99 99 99 Oximetry 10/15/16 10/15/16 10/15/16 02:00 02:05 02:30 Temperature Pulse Rate 122 H 112 H 125 H Pulse Rate [ From Monitor] Pulse Rate [ Left Dorsalis Pedis] Pulse Rate [ Right Dorsalis Pedis] Pulse Rate [ Right Radial] Respiratory 27 H 26 H Rate Respiratory Rate [ Generalized] Blood Pressure 189/102 220/110 188/98 O2 Sat by Pulse 98 99 Oximetry 10/15/16 10/15/16 10/15/16 03:00 03:09 03:30 Temperature Pulse Rate 118 H 123 H 124 H Pulse Rate [ From Monitor] Pulse Rate [ Left Dorsalis Pedis] Pulse Rate [ Right Dorsalis Pedis] Pulse Rate [ Right Radial] Respiratory 27 H 24 Rate Respiratory Rate [ Generalized] Blood Pressure 183/90 183/90 180/97 O2 Sat by Pulse 98 99 98 Oximetry 10/15/16 10/15/16 10/15/16 04:00 04:30 04:52 Temperature 100.1 F H Pulse Rate 118 H 116 H 120 H Pulse Rate [ 120 H From Monitor] Pulse Rate [ 120 H Left Dorsalis Pedis] Pulse Rate [ 120 H Right Dorsalis Pedis] Pulse Rate [ 120 H Right Radial] Respiratory 30 H 26 H Rate Respiratory Rate [ Generalized] Blood Pressure 180/97 158/93 197/102 O2 Sat by Pulse 99 98 Oximetry 10/15/16 10/15/16 10/15/16 05:00 05:30 06:00 Temperature Pulse Rate 118 H 127 H 133 H Pulse Rate [ From Monitor] Pulse Rate [ Left Dorsalis Pedis] Pulse Rate [ Right Dorsalis Pedis] Pulse Rate [ Right Radial] Respiratory 25 H 23 25 H Rate Respiratory Rate [ Generalized] Blood Pressure 155/71 135/65 141/69 O2 Sat by Pulse 98 97 99 Oximetry 10/15/16 10/15/16 10/15/16 06:30 07:00 07:30 Temperature Pulse Rate 139 H 130 H 128 H Pulse Rate [ From Monitor] Pulse Rate [ Left Dorsalis Pedis] Pulse Rate [ Right Dorsalis Pedis] Pulse Rate [ Right Radial] Respiratory 26 H 25 H 24 Rate Respiratory Rate [ Generalized] Blood Pressure 155/68 145/72 O2 Sat by Pulse 99 99 99 Oximetry 10/15/16 10/15/16 10/15/16 07:47 08:00 08:04 Temperature 99.7 F H Pulse Rate 136 H 142 H Pulse Rate [ From Monitor] Pulse Rate [ Left Dorsalis Pedis] Pulse Rate [ Right Dorsalis Pedis] Pulse Rate [ Right Radial] Respiratory 24 Rate Respiratory Rate [ Generalized] Blood Pressure 159/71 159/71 O2 Sat by Pulse 99 99 Oximetry 10/15/16 10/15/16 10/15/16 08:30 08:51 09:00 Temperature Pulse Rate 139 H 136 H 124 H Pulse Rate [ From Monitor] Pulse Rate [ Left Dorsalis Pedis] Pulse Rate [ Right Dorsalis Pedis] Pulse Rate [ Right Radial] Respiratory 26 H 25 H Rate Respiratory Rate [ Generalized] Blood Pressure 160/73 160/73 176/86 O2 Sat by Pulse 99 99 Oximetry 10/15/16 10/15/16 09:30 10:00 Temperature Pulse Rate 128 H 140 H Pulse Rate [ From Monitor] Pulse Rate [ Left Dorsalis Pedis] Pulse Rate [ Right Dorsalis Pedis] Pulse Rate [ Right Radial] Respiratory 25 H 24 Rate Respiratory 24 Rate [ Generalized] Blood Pressure 173/83 157/81 O2 Sat by Pulse 99 99 Oximetry - Lab 10/15/16 Unknown 10/15/16 Unknown Most recent lab results Calcium 9.2 mg/dL (8.4-10.2) 10/15/16 Unknown Phosphorus 2.90 mg/dL (2.5-4.5) 10/15/16 Unknown Magnesium 1.80 mg/dL (1.7-2.3) 10/15/16 Unknown Urine Creatinine 54.8 mg/dL (0.1-20.0) H 09/21/16 12:00 Urine Sodium 36 mEq/L 09/16/16 19:19 Urine Total Protein 16 mg/dL (5-11.8) H 09/16/16 19:19
[2016-10-15] MEDS: PROTONIX IV SCH (12:01)
--- NOTE | 2016-10-15 13:56 | Progress Note ---
Assessment and Plan - Patient Problems (1) Respiratory failure Current Visit: Yes Status: Acute Qualifiers: Chronicity: C Respiratory failure complication: R Plan to address problem: Continue supportive management. (2) Atrial fibrillation Current Visit: Yes Status: Acute Qualifiers: Atrial fibrillation type: A Plan to address problem: Intravenous Lopressor for management of paroxysmal atrial fibrillation. Subjective Date of service: 10/15/16 Principal diagnosis: hematochezia Interval history: Patient is sedated, on different. On the monitor tech, she has atrial fibrillation with rapid ventricular rate 130/m. Her pressure is 150 systolic. Objective Vital Signs Temp Pulse Pulse Pulse Pulse Pulse Pulse 10/15/16 13:24 148 H 10/15/16 13:00 127 H 10/15/16 12:31 119 H 10/15/16 12:04 133 H 10/15/16 12:01 136 H 10/15/16 12:00 100.4 F H 137 H 10/15/16 11:30 135 H 10/15/16 11:00 125 H 10/15/16 10:30 128 H 10/15/16 10:00 140 H 10/15/16 09:30 128 H 10/15/16 09:00 124 H 10/15/16 08:40 136 H 10/15/16 08:30 139 H 10/15/16 08:04 142 H 10/15/16 08:00 136 H 10/15/16 07:47 99.7 F H 10/15/16 07:30 128 H 10/15/16 07:00 130 H 10/15/16 06:30 139 H 10/15/16 06:00 133 H 10/15/16 05:30 127 H 10/15/16 05:00 118 H 10/15/16 04:52 120 H 10/15/16 04:30 116 H 10/15/16 04:00 100.1 F H 118 H 120 H 120 H 120 H 120 H 10/15/16 03:30 124 H 10/15/16 03:09 123 H 10/15/16 03:00 118 H 10/15/16 02:30 125 H 10/15/16 02:05 112 H 10/15/16 02:00 122 H 10/15/16 01:30 122 H 10/15/16 01:00 126 H 10/15/16 00:30 124 H 10/15/16 00:00 100.3 F H 121 H 10/14/16 23:30 120 H 10/14/16 23:28 127 H 10/14/16 23:20 10/14/16 23:18 116 H 10/14/16 23:00 118 H 10/14/16 22:58 114 H 114 H 114 H 114 H 114 H 10/14/16 22:30 114 H 10/14/16 22:00 115 H 10/14/16 21:52 10/14/16 21:49 112 H 10/14/16 21:30 114 H 10/14/16 21:00 114 H 10/14/16 20:34 117 H 10/14/16 20:30 119 H 10/14/16 20:00 115 H 112 H 112 H 112 H 112 H 112 H 10/14/16 19:53 99.7 F H 10/14/16 19:30 119 H 10/14/16 19:22 121 H 10/14/16 19:00 116 H 10/14/16 18:30 114 H 10/14/16 18:00 114 H 10/14/16 17:30 112 H 10/14/16 17:07 111 H 10/14/16 17:00 115 H 10/14/16 16:45 107 H 10/14/16 16:30 105 H 10/14/16 16:00 107 H 107 H 10/14/16 15:56 97.5 F L 10/14/16 15:30 109 H 10/14/16 15:00 105 H 10/14/16 14:38 117 H 10/14/16 14:30 116 H 10/14/16 14:00 109 H Resp Resp BP Pulse Ox Pulse Ox 10/15/16 13:24 132/70 10/15/16 13:00 25 H 132/70 94 10/15/16 12:31 26 H 139/61 93 10/15/16 12:04 150/76 91 10/15/16 12:01 170/100 10/15/16 12:00 29 H 170/100 92 10/15/16 11:30 24 154/100 100 10/15/16 11:00 23 136/73 100 10/15/16 10:30 25 H 151/80 98 10/15/16 10:00 24 24 157/81 99 10/15/16 09:30 25 H 173/83 99 10/15/16 09:00 25 H 176/86 99 10/15/16 08:40 10/15/16 08:30 26 H 160/73 99 10/15/16 08:04 159/71 99 10/15/16 08:00 24 159/71 99 10/15/16 07:47 10/15/16 07:30 24 145/72 99 10/15/16 07:00 25 H 155/68 99 10/15/16 06:30 26 H 99 10/15/16 06:00 25 H 141/69 99 10/15/16 05:30 23 135/65 97 10/15/16 05:00 25 H 155/71 98 10/15/16 04:52 197/102 10/15/16 04:30 26 H 158/93 98 10/15/16 04:00 30 H 180/97 99 10/15/16 03:30 24 180/97 98 10/15/16 03:09 183/90 99 10/15/16 03:00 27 H 183/90 98 10/15/16 02:30 26 H 188/98 99 10/15/16 02:05 220/110 10/15/16 02:00 27 H 189/102 98 10/15/16 01:30 23 171/90 99 10/15/16 01:00 29 H 187/97 99 10/15/16 00:30 34 H 179/99 99 10/15/16 00:00 30 H 178/94 99 10/14/16 23:30 26 H 174/95 99 10/14/16 23:28 28 H 175/92 99 10/14/16 23:20 100 10/14/16 23:18 175/92 99 10/14/16 23:00 23 175/92 10/14/16 22:58 21 100 10/14/16 22:30 26 H 165/90 10/14/16 22:00 25 H 170/86 10/14/16 21:52 24 10/14/16 21:49 10/14/16 21:30 26 H 176/88 10/14/16 21:00 30 H 164/95 10/14/16 20:34 195/110 10/14/16 20:30 25 H 195/110 99 10/14/16 20:00 12 192/101 100 10/14/16 19:53 10/14/16 19:30 22 202/108 96 10/14/16 19:22 191/95 98 10/14/16 19:00 23 191/95 97 10/14/16 18:30 19 173/92 10/14/16 18:00 18 169/92 100 10/14/16 17:30 31 H 151/79 89 10/14/16 17:07 182/99 99 10/14/16 17:00 21 182/99 93 10/14/16 16:45 190/91 10/14/16 16:30 26 H 190/91 95 10/14/16 16:00 19 173/103 99 10/14/16 15:56 10/14/16 15:30 21 193/94 93 10/14/16 15:00 21 135/96 92 10/14/16 14:38 140/89 10/14/16 14:30 21 140/89 95 10/14/16 14:00 15 141/81 95 - Physical Examination General: Other (ventilated via trach) Neck: Positive: neck supple Cardiac: Positive: irregularly irregular Lungs: Positive: Decreased Breath Sounds Neuro: Positive: Weakness Abdomen: Positive: Soft, Active Bowel Sounds Skin: Positive: Clear Extremities: Absent: edema - Labs and Meds CBC 10/15/16 Range/Units Unknown WBC 23.4 H (4.5-11.0) K/mm3 RBC 2.78 L (3.65-5.03) M/mm3 Hgb 8.5 L (10.1-14.3) gm/dl Hct 25.7 L (30.3-42.9) % Plt Count 256 (140-440) K/mm3 Comprehensive Metabolic Panel 10/15/16 Range/Units Unknown Sodium 140 (137-145) mmol/L Potassium 4.1 (3.6-5.0) mmol/L Chloride 98.5 (98-107) mmol/L Carbon Dioxide 25 (22-30) mmol/L BUN 73 H (7-17) mg/dL Creatinine 2.3 H (0.7-1.2) mg/dL Glucose 120 H (65-100) mg/dL Calcium 9.2 (8.4-10.2) mg/dL - Imaging and Cardiology EKG: image reviewed - Allied health notes Allied health notes reviewed: RT
--- NOTE | 2016-10-15 14:28 | Progress Note ---
Assessment and Plan - Patient Problems (1) Acute respiratory failure with hypoxia Current Visit: Yes Status: Acute Plan to address problem: Continue with mechanical ventilatory support Lung protective strategies -VAP bundle, HOB >40 - SCDs for VTE prophylaxis - Stress ulcer prophylaxis -Bronchodilators- h/o asthma -[place] catheter in this critically ill patient - TPN, accucheck with glycemic control - Agitation management/analgesia - daily SATs and SBTs as tolerated - ABGs and CXR -Trach care per RT Needs transfer to LTACH and chronic weaning from mechanical ventilatory support (2) Acute CVA (cerebrovascular accident) Current Visit: Yes Status: Acute Plan to address problem: CTScan -subacute MCA territory infarct Secondary stroke prophylaxis Neuroprotective measures Aspiration precautions (3) Chronic renal insufficiency Current Visit: Yes Status: Acute Qualifiers: Chronic kidney disease stage: C Plan to address problem: UF/HD per renal service Renal following Needs UF to facilitate resumption of weaning trials (4) Uncontrolled hypertension Current Visit: Yes Status: Acute Plan to address problem: Monitor closely and adjust anti-hypertensive medications (5) Leukocytosis (leucocytosis) Current Visit: Yes Status: Acute Qualifiers: Leukocytosis type: leukemoid reaction Qualified Code(s): D72.823 - Leukemoid reaction Plan to address problem: On antibiotics and antifungal per ID service. (6) Dislodged gastrostomy tube Current Visit: Yes Status: Acute Plan to address problem: With bowel perforation/peritonitis. Purulent drainage from JUAN drain. Remains NPO and on TPN for nutritional support. GI/Surgery following (7) Fungemia Current Visit: Yes Status: Acute Plan to address problem: Anti-fungal therapy per ID service. Subjective Date of service: 10/15/16 Principal diagnosis: hematochezia Interval history: Seen and examined. Vitals, labs, medications, chart reviewed. On mechanical ventilatory support , Not tolerating PSV. On TPN, with purulent drainage from the JUAN drain. Diarrheal stools this morning as per RN Discussed with RT and RN No acute overnight events reported or documented Objective - Exam Narrative Exam: General appearance: somnolent non verbal, on the vent via trach no following commands Eyes: anicteric sclera, moist conjunctivae; PERRLA HENT: Atraumatic; oropharynx limited; Normal external ears. +NGT with greenish secretion Neck: +trach in place; supple, no thyromegaly or lymphadenopathy Lungs: coarse BS bilateral CV: tachycardic Abdomen: Soft, non-tender, +drain with purulent drainage, + diarrhea via rectal tube. +old PEG site no drainage. Extremities: +peripheral edema no extremity lymphadenopathy Skin: Julian sub mammary ulcers, extensive skin peeling on back Neuro: Awake and alert, not obeying commands Lines: left arm PICC placed on 10/03 Vital Signs - 12hr 10/15/16 10/15/16 10/15/16 02:30 03:00 03:09 Temperature Pulse Rate 125 H 118 H 123 H Pulse Rate [ From Monitor] Pulse Rate [ Left Dorsalis Pedis] Pulse Rate [ Right Dorsalis Pedis] Pulse Rate [ Right Radial] Respiratory 26 H 27 H Rate Respiratory Rate [ Generalized] Blood Pressure 188/98 183/90 183/90 O2 Sat by Pulse 99 98 99 Oximetry 10/15/16 10/15/16 10/15/16 03:30 04:00 04:30 Temperature 100.1 F H Pulse Rate 124 H 118 H 116 H Pulse Rate [ 120 H From Monitor] Pulse Rate [ 120 H Left Dorsalis Pedis] Pulse Rate [ 120 H Right Dorsalis Pedis] Pulse Rate [ 120 H Right Radial] Respiratory 24 30 H 26 H Rate Respiratory Rate [ Generalized] Blood Pressure 180/97 180/97 158/93 O2 Sat by Pulse 98 99 98 Oximetry 10/15/16 10/15/16 10/15/16 04:52 05:00 05:30 Temperature Pulse Rate 120 H 118 H 127 H Pulse Rate [ From Monitor] Pulse Rate [ Left Dorsalis Pedis] Pulse Rate [ Right Dorsalis Pedis] Pulse Rate [ Right Radial] Respiratory 25 H 23 Rate Respiratory Rate [ Generalized] Blood Pressure 197/102 155/71 135/65 O2 Sat by Pulse 98 97 Oximetry 10/15/16 10/15/16 10/15/16 06:00 06:30 07:00 Temperature Pulse Rate 133 H 139 H 130 H Pulse Rate [ From Monitor] Pulse Rate [ Left Dorsalis Pedis] Pulse Rate [ Right Dorsalis Pedis] Pulse Rate [ Right Radial] Respiratory 25 H 26 H 25 H Rate Respiratory Rate [ Generalized] Blood Pressure 141/69 155/68 O2 Sat by Pulse 99 99 99 Oximetry 10/15/16 10/15/16 10/15/16 07:30 07:47 08:00 Temperature 99.7 F H Pulse Rate 128 H 136 H Pulse Rate [ From Monitor] Pulse Rate [ Left Dorsalis Pedis] Pulse Rate [ Right Dorsalis Pedis] Pulse Rate [ Right Radial] Respiratory 24 24 Rate Respiratory Rate [ Generalized] Blood Pressure 145/72 159/71 O2 Sat by Pulse 99 99 Oximetry 10/15/16 10/15/16 10/15/16 08:04 08:30 08:40 Temperature Pulse Rate 142 H 139 H 136 H Pulse Rate [ From Monitor] Pulse Rate [ Left Dorsalis Pedis] Pulse Rate [ Right Dorsalis Pedis] Pulse Rate [ Right Radial] Respiratory 26 H Rate Respiratory Rate [ Generalized] Blood Pressure 159/71 160/73 O2 Sat by Pulse 99 99 Oximetry 10/15/16 10/15/16 10/15/16 09:00 09:30 10:00 Temperature Pulse Rate 124 H 128 H 140 H Pulse Rate [ From Monitor] Pulse Rate [ Left Dorsalis Pedis] Pulse Rate [ Right Dorsalis Pedis] Pulse Rate [ Right Radial] Respiratory 25 H 25 H 24 Rate Respiratory 24 Rate [ Generalized] Blood Pressure 176/86 173/83 157/81 O2 Sat by Pulse 99 99 99 Oximetry 10/15/16 10/15/16 10/15/16 10:30 11:00 11:30 Temperature Pulse Rate 128 H 125 H 135 H Pulse Rate [ From Monitor] Pulse Rate [ Left Dorsalis Pedis] Pulse Rate [ Right Dorsalis Pedis] Pulse Rate [ Right Radial] Respiratory 25 H 23 24 Rate Respiratory Rate [ Generalized] Blood Pressure 151/80 136/73 154/100 O2 Sat by Pulse 98 100 100 Oximetry 10/15/16 10/15/16 10/15/16 12:00 12:01 12:04 Temperature 100.4 F H Pulse Rate 137 H 136 H 133 H Pulse Rate [ From Monitor] Pulse Rate [ Left Dorsalis Pedis] Pulse Rate [ Right Dorsalis Pedis] Pulse Rate [ Right Radial] Respiratory 29 H Rate Respiratory Rate [ Generalized] Blood Pressure 170/100 170/100 150/76 O2 Sat by Pulse 92 91 Oximetry 10/15/16 10/15/16 10/15/16 12:31 13:00 13:24 Temperature Pulse Rate 119 H 127 H 148 H Pulse Rate [ From Monitor] Pulse Rate [ Left Dorsalis Pedis] Pulse Rate [ Right Dorsalis Pedis] Pulse Rate [ Right Radial] Respiratory 26 H 25 H Rate Respiratory Rate [ Generalized] Blood Pressure 139/61 132/70 132/70 O2 Sat by Pulse 93 94 Oximetry Constitutional: no acute distress, other (grimaces with moving) Eyes: non-icteric, other (tracheostomy tube in midline of neck) ENT: oropharynx moist Neck: supple, no lymphadenopathy Effort: mildly labored Ascultation: Right: clear, Bilateral: diminished breath sounds (bases), rales, rhonchi (bases) Cardiovascular: regular rate and rhythm Gastrointestinal: hypoactive bowel sounds, soft, non-tender, non-distended Integumentary: other (erythema to skin of back with some healing areas; no obvious TEN's features) Extremities: no cyanosis, no edema, pulses normal, no ischemia or petechiae Neurologic: pupils equal and round, other (sedated) Psychiatric: other (unable to assess) CBC and BMP: 10/16/16 06:25 10/16/16 06:25 ABG, PT/INR, D-dimer: ABG POC ABG pH 7.437 (7.35-7.45) 10/08/16 12:49 POC ABG pCO2 28.2 (35-45) L 10/08/16 12:49 POC ABG pO2 111 (80-105) H 10/08/16 12:49 POC ABG HCO3 19.0 10/08/16 12:49 POC ABG Total CO2 20 10/08/16 12:49 POC ABG O2 Sat 99 10/08/16 12:49 PT/INR, D-dimer PT 19.0 Sec. (12.2-14.9) H 10/09/16 03:45 INR 1.51 (0.87-1.13) H 10/09/16 03:45 Abnormal lab findings: Abnormal Labs 09/03/16 09/03/16 09/03/16 12:12 15:07 16:20 WBC RBC Hgb Hct MCV MCH MCHC RDW Plt Count Lymph % (Auto) [place] % (Auto) Lymph # [place] # Seg Neutrophils % Seg Neuts % (Manual) Lymphocytes % (Manual) Monocytes % (Manual) Eosinophils % (Manual) Basophils % (Manual) Nucleated RBC % Seg Neutrophils # Seg Neutrophils # Man Lymphocytes # (Manual) Monocytes # (Manual) Eosinophils # (Manual) PT INR Fibrinogen dRVVT Confirm Interp Factor V Activity POC ABG pH 7.452 H POC ABG pCO2 POC ABG pO2 Sodium Potassium Chloride Carbon Dioxide BUN Creatinine Glucose POC Glucose 178 H Lactic Acid Calcium Phosphorus 2.20 L Magnesium 1.60 L Direct Bilirubin ALT Alkaline Phosphatase Troponin T C-Reactive Protein Total Protein Albumin Triglycerides Cholesterol LDL Cholesterol Direct HDL Cholesterol Urine WBC (Auto) Urine Creatinine Urine Total Protein Vancomycin Trough Rheumatoid Factor Complement C4 Miscellaneous Test Crossmatch 09/03/16 09/03/16 09/03/16 17:57 17:58 23:50 WBC RBC Hgb Hct MCV MCH MCHC RDW Plt Count Lymph % (Auto) [place] % (Auto) Lymph # [place] # Seg Neutrophils % Seg Neuts % (Manual) Lymphocytes % (Manual) Monocytes % (Manual) Eosinophils % (Manual) Basophils % (Manual) Nucleated RBC % Seg Neutrophils # Seg Neutrophils # Man Lymphocytes # (Manual) Monocytes # (Manual) Eosinophils # (Manual) PT INR Fibrinogen dRVVT Confirm Interp Factor V Activity POC ABG pH POC ABG pCO2 POC ABG pO2 Sodium Potassium Chloride Carbon Dioxide BUN Creatinine Glucose POC Glucose 162 H 145 H Lactic Acid Calcium Phosphorus 2.30 L Magnesium Direct Bilirubin ALT Alkaline Phosphatase Troponin T C-Reactive Protein Total Protein Albumin Triglycerides Cholesterol LDL Cholesterol Direct HDL Cholesterol Urine WBC (Auto) Urine Creatinine Urine Total Protein Vancomycin Trough Rheumatoid Factor Complement C4 Miscellaneous Test Crossmatch 09/04/16 09/04/16 09/04/16 03:31 03:31 05:42 WBC RBC Hgb 9.7 L D Hct MCV 72 L MCH 23 L MCHC RDW 17.5 H Plt Count Lymph % (Auto) 11.1 L [place] % (Auto) Lymph # [place] # Seg Neutrophils % 84.3 H Seg Neuts % (Manual) Lymphocytes % (Manual) Monocytes % (Manual) Eosinophils % (Manual) Basophils % (Manual) Nucleated RBC % Seg Neutrophils # 8.9 H Seg Neutrophils # Man Lymphocytes # (Manual) Monocytes # (Manual) Eosinophils # (Manual) PT INR Fibrinogen dRVVT Confirm Interp Factor V Activity POC ABG pH POC ABG pCO2 POC ABG pO2 Sodium 135 L Potassium 2.9 L* Chloride 97.2 L Carbon Dioxide 19 L BUN Creatinine 1.7 H Glucose 170 H POC Glucose 152 H Lactic Acid Calcium Phosphorus Magnesium Direct Bilirubin ALT Alkaline Phosphatase Troponin T C-Reactive Protein Total Protein Albumin Triglycerides 160 H Cholesterol LDL Cholesterol Direct HDL Cholesterol 31 L Urine WBC (Auto) Urine Creatinine Urine Total Protein Vancomycin Trough Rheumatoid Factor Complement C4 Miscellaneous Test Crossmatch 09/04/16 09/04/16 09/04/16 11:34 17:46 23:29 WBC RBC Hgb Hct MCV MCH MCHC RDW Plt Count Lymph % (Auto) [place] % (Auto) Lymph # [place] # Seg Neutrophils % Seg Neuts % (Manual) Lymphocytes % (Manual) Monocytes % (Manual) Eosinophils % (Manual) Basophils % (Manual) Nucleated RBC % Seg Neutrophils # Seg Neutrophils # Man Lymphocytes # (Manual) Monocytes # (Manual) Eosinophils # (Manual) PT INR Fibrinogen dRVVT Confirm Interp Factor V Activity POC ABG pH POC ABG pCO2 POC ABG pO2 Sodium Potassium Chloride Carbon Dioxide BUN Creatinine Glucose POC Glucose 165 H 210 H 139 H Lactic Acid Calcium Phosphorus Magnesium Direct Bilirubin ALT Alkaline Phosphatase Troponin T C-Reactive Protein Total Protein Albumin Triglycerides Cholesterol LDL Cholesterol Direct HDL Cholesterol Urine WBC (Auto) Urine Creatinine Urine Total Protein Vancomycin Trough Rheumatoid Factor Complement C4 Miscellaneous Test Crossmatch 09/05/16 09/05/16 09/05/16 04:05 04:05 05:38 WBC RBC Hgb Hct MCV 76 L D MCH 23 L MCHC RDW 17.8 H Plt Count Lymph % (Auto) [place] % (Auto) Lymph # [place] # Seg Neutrophils % Seg Neuts % (Manual) Lymphocytes % (Manual) Monocytes % (Manual) Eosinophils % (Manual) Basophils % (Manual) Nucleated RBC % Seg Neutrophils # Seg Neutrophils # Man Lymphocytes # (Manual) Monocytes # (Manual) Eosinophils # (Manual) PT INR Fibrinogen dRVVT Confirm Interp Factor V Activity POC ABG pH POC ABG pCO2 POC ABG pO2 Sodium 134 L Potassium Chloride Carbon Dioxide 18 L BUN Creatinine 1.8 H Glucose 192 H POC Glucose 175 H Lactic Acid Calcium Phosphorus Magnesium Direct Bilirubin ALT Alkaline Phosphatase Troponin T C-Reactive Protein Total Protein Albumin Triglycerides Cholesterol LDL Cholesterol Direct HDL Cholesterol Urine WBC (Auto) Urine Creatinine Urine Total Protein Vancomycin Trough Rheumatoid Factor Complement C4 Miscellaneous Test Crossmatch 09/05/16 09/05/16 09/05/16 11:38 17:48 23:22 WBC RBC Hgb Hct MCV MCH MCHC RDW Plt Count Lymph % (Auto) [place] % (Auto) Lymph # [place] # Seg Neutrophils % Seg Neuts % (Manual) Lymphocytes % (Manual) Monocytes % (Manual) Eosinophils % (Manual) Basophils % (Manual) Nucleated RBC % Seg Neutrophils # Seg Neutrophils # Man Lymphocytes # (Manual) Monocytes # (Manual) Eosinophils # (Manual) PT INR Fibrinogen dRVVT Confirm Interp Factor V Activity POC ABG pH POC ABG pCO2 POC ABG pO2 Sodium Potassium Chloride Carbon Dioxide BUN Creatinine Glucose POC Glucose 164 H 186 H 195 H Lactic Acid Calcium Phosphorus Magnesium Direct Bilirubin ALT Alkaline Phosphatase Troponin T C-Reactive Protein Total Protein Albumin Triglycerides Cholesterol LDL Cholesterol Direct HDL Cholesterol Urine WBC (Auto) Urine Creatinine Urine Total Protein Vancomycin Trough Rheumatoid Factor Complement C4 Miscellaneous Test Crossmatch 09/06/16 09/06/16 09/06/16 04:12 05:59 07:32 WBC RBC Hgb Hct MCV MCH MCHC RDW Plt Count Lymph % (Auto) [place] % (Auto) Lymph # [place] # Seg Neutrophils % Seg Neuts % (Manual) Lymphocytes % (Manual) Monocytes % (Manual) Eosinophils % (Manual) Basophils % (Manual) Nucleated RBC % Seg Neutrophils # Seg Neutrophils # Man Lymphocytes # (Manual) Monocytes # (Manual) Eosinophils # (Manual) PT INR Fibrinogen dRVVT Confirm Interp Factor V Activity POC ABG pH 7.514 H POC ABG pCO2 29.1 L POC ABG pO2 72 L Sodium 133 L Potassium 3.4 L Chloride 94.9 L Carbon Dioxide 19 L BUN 30 H Creatinine 2.1 H Glucose 139 H POC Glucose 146 H Lactic Acid Calcium Phosphorus Magnesium Direct Bilirubin ALT Alkaline Phosphatase Troponin T C-Reactive Protein Total Protein Albumin Triglycerides Cholesterol LDL Cholesterol Direct HDL Cholesterol Urine WBC (Auto) Urine Creatinine Urine Total Protein Vancomycin Trough Rheumatoid Factor Complement C4 Miscellaneous Test Crossmatch 09/06/16 09/06/16 09/06/16 11:57 17:58 19:02 WBC RBC Hgb Hct MCV MCH MCHC RDW Plt Count Lymph % (Auto) [place] % (Auto) Lymph # [place] # Seg Neutrophils % Seg Neuts % (Manual) Lymphocytes % (Manual) Monocytes % (Manual) Eosinophils % (Manual) Basophils % (Manual) Nucleated RBC % Seg Neutrophils # Seg Neutrophils # Man Lymphocytes # (Manual) Monocytes # (Manual) Eosinophils # (Manual) PT INR Fibrinogen dRVVT Confirm Interp Factor V Activity POC ABG pH 7.465 H POC ABG pCO2 32.0 L POC ABG pO2 Sodium Potassium Chloride Carbon Dioxide BUN Creatinine Glucose POC Glucose 165 H 160 H Lactic Acid Calcium Phosphorus Magnesium Direct Bilirubin ALT Alkaline Phosphatase Troponin T C-Reactive Protein Total Protein Albumin Triglycerides Cholesterol LDL Cholesterol Direct HDL Cholesterol Urine WBC (Auto) Urine Creatinine Urine Total Protein Vancomycin Trough Rheumatoid Factor Complement C4 Miscellaneous Test Crossmatch 09/06/16 09/07/16 09/07/16 23:45 02:47 02:47 WBC RBC Hgb Hct MCV MCH MCHC RDW Plt Count Lymph % (Auto) [place] % (Auto) Lymph # [place] # Seg Neutrophils % Seg Neuts % (Manual) Lymphocytes % (Manual) Monocytes % (Manual) Eosinophils % (Manual) Basophils % (Manual) Nucleated RBC % Seg Neutrophils # Seg Neutrophils # Man Lymphocytes # (Manual) Monocytes # (Manual) Eosinophils # (Manual) PT INR Fibrinogen dRVVT Confirm Interp Factor V Activity POC ABG pH POC ABG pCO2 POC ABG pO2 Sodium Potassium Chloride Carbon Dioxide BUN Creatinine Glucose POC Glucose 204 H Lactic Acid Calcium Phosphorus Magnesium Direct Bilirubin ALT Alkaline Phosphatase Troponin T C-Reactive Protein Total Protein Albumin Triglycerides Cholesterol LDL Cholesterol Direct HDL Cholesterol Urine WBC (Auto) 68.0 H Urine Creatinine 106.1 H Urine Total Protein Vancomycin Trough Rheumatoid Factor Complement C4 Miscellaneous Test Crossmatch 09/07/16 09/07/16 09/07/16 04:50 06:19 06:39 WBC RBC Hgb Hct MCV MCH MCHC RDW Plt Count Lymph % (Auto) [place] % (Auto) Lymph # [place] # Seg Neutrophils % Seg Neuts % (Manual) Lymphocytes % (Manual) Monocytes % (Manual) Eosinophils % (Manual) Basophils % (Manual) Nucleated RBC % Seg Neutrophils # Seg Neutrophils # Man Lymphocytes # (Manual) Monocytes # (Manual) Eosinophils # (Manual) PT INR Fibrinogen dRVVT Confirm Interp Factor V Activity POC ABG pH 7.457 H POC ABG pCO2 32.1 L POC ABG pO2 76 L Sodium 132 L Potassium Chloride 94.7 L Carbon Dioxide BUN 53 H Creatinine 2.9 H Glucose 151 H POC Glucose 149 H Lactic Acid Calcium Phosphorus Magnesium Direct Bilirubin ALT Alkaline Phosphatase Troponin T C-Reactive Protein Total Protein Albumin Triglycerides Cholesterol LDL Cholesterol Direct HDL Cholesterol Urine WBC (Auto) Urine Creatinine Urine Total Protein Vancomycin Trough Rheumatoid Factor Complement C4 Miscellaneous Test Crossmatch 09/07/16 09/07/16 09/07/16 09:20 11:43 11:43 WBC 19.4 H RBC Hgb 8.3 L Hct 26.4 L D MCV 72 L D MCH 22 L MCHC RDW 17.9 H Plt Count Lymph % (Auto) 8.5 L [place] % (Auto) Lymph # [place] # 1.0 H Seg Neutrophils % 85.8 H Seg Neuts % (Manual) Lymphocytes % (Manual) Monocytes % (Manual) Eosinophils % (Manual) Basophils % (Manual) Nucleated RBC % Seg Neutrophils # 16.6 H Seg Neutrophils # Man Lymphocytes # (Manual) Monocytes # (Manual) Eosinophils # (Manual) PT INR Fibrinogen dRVVT Confirm Interp Factor V Activity POC ABG pH POC ABG pCO2 POC ABG pO2 Sodium 134 L Potassium Chloride 97.2 L Carbon Dioxide 20 L BUN 58 H Creatinine 2.9 H Glucose 147 H POC Glucose Lactic Acid Calcium Phosphorus 2.40 L Magnesium 2.40 H Direct Bilirubin ALT Alkaline Phosphatase Troponin T C-Reactive Protein Total Protein 5.8 L Albumin 2.2 L Triglycerides Cholesterol LDL Cholesterol Direct HDL Cholesterol Urine WBC (Auto) Urine Creatinine Urine Total Protein Vancomycin Trough Rheumatoid Factor Complement C4 58 H Miscellaneous Test Crossmatch 09/07/16 09/07/16 09/07/16 11:50 16:00 17:31 WBC RBC Hgb Hct MCV MCH MCHC RDW Plt Count Lymph % (Auto) [place] % (Auto) Lymph # [place] # Seg Neutrophils % Seg Neuts % (Manual) Lymphocytes % (Manual) Monocytes % (Manual) Eosinophils % (Manual) Basophils % (Manual) Nucleated RBC % Seg Neutrophils # Seg Neutrophils # Man Lymphocytes # (Manual) Monocytes # (Manual) Eosinophils # (Manual) PT INR Fibrinogen dRVVT Confirm Interp Factor V Activity POC ABG pH POC ABG pCO2 POC ABG pO2 158 H Sodium Potassium Chloride Carbon Dioxide BUN Creatinine Glucose POC Glucose 175 H Lactic Acid Calcium Phosphorus Magnesium Direct Bilirubin ALT Alkaline Phosphatase Troponin T C-Reactive Protein Total Protein Albumin Triglycerides Cholesterol LDL Cholesterol Direct HDL Cholesterol Urine WBC (Auto) Urine Creatinine 66.3 H Urine Total Protein Vancomycin Trough Rheumatoid Factor Complement C4 Miscellaneous Test Crossmatch 09/07/16 09/08/16 09/08/16 23:50 05:46 06:18 WBC 17.8 H RBC 3.58 L Hgb 8.1 L Hct 25.5 L MCV 71 L MCH 23 L MCHC RDW 18.4 H Plt Count Lymph % (Auto) [place] % (Auto) Lymph # [place] # Seg Neutrophils % Seg Neuts % (Manual) 92.0 H Lymphocytes % (Manual) 6.0 L Monocytes % (Manual) Eosinophils % (Manual) Basophils % (Manual) Nucleated RBC % Seg Neutrophils # Seg Neutrophils # Man 16.4 H Lymphocytes # (Manual) 1.1 L Monocytes # (Manual) Eosinophils # (Manual) PT INR Fibrinogen dRVVT Confirm Interp Factor V Activity POC ABG pH POC ABG pCO2 34.3 L POC ABG pO2 71 L Sodium Potassium Chloride Carbon Dioxide BUN Creatinine Glucose POC Glucose 216 H Lactic Acid Calcium Phosphorus Magnesium Direct Bilirubin ALT Alkaline Phosphatase Troponin T C-Reactive Protein Total Protein Albumin Triglycerides Cholesterol LDL Cholesterol Direct HDL Cholesterol Urine WBC (Auto) Urine Creatinine Urine Total Protein Vancomycin Trough Rheumatoid Factor Complement C4 Miscellaneous Test Crossmatch 09/08/16 09/08/16 09/08/16 06:18 06:51 10:55 WBC RBC Hgb Hct MCV MCH MCHC RDW Plt Count Lymph % (Auto) [place] % (Auto) Lymph # [place] # Seg Neutrophils % Seg Neuts % (Manual) Lymphocytes % (Manual) Monocytes % (Manual) Eosinophils % (Manual) Basophils % (Manual) Nucleated RBC % Seg Neutrophils # Seg Neutrophils # Man Lymphocytes # (Manual) Monocytes # (Manual) Eosinophils # (Manual) PT INR Fibrinogen dRVVT Confirm Interp Factor V Activity POC ABG pH POC ABG pCO2 POC ABG pO2 Sodium 133 L Potassium Chloride 96.9 L Carbon Dioxide 20 L BUN 63 H Creatinine 2.7 H Glucose 195 H POC Glucose 204 H 169 H Lactic Acid Calcium Phosphorus Magnesium Direct Bilirubin ALT Alkaline Phosphatase Troponin T C-Reactive Protein Total Protein Albumin Triglycerides Cholesterol LDL Cholesterol Direct HDL Cholesterol Urine WBC (Auto) Urine Creatinine Urine Total Protein Vancomycin Trough Rheumatoid Factor Complement C4 Miscellaneous Test Crossmatch 09/08/16 09/08/16 09/08/16 11:48 11:48 11:48 WBC RBC Hgb Hct MCV MCH MCHC RDW Plt Count Lymph % (Auto) [place] % (Auto) Lymph # [place] # Seg Neutrophils % Seg Neuts % (Manual) Lymphocytes % (Manual) Monocytes % (Manual) Eosinophils % (Manual) Basophils % (Manual) Nucleated RBC % Seg Neutrophils # Seg Neutrophils # Man Lymphocytes # (Manual) Monocytes # (Manual) Eosinophils # (Manual) PT INR Fibrinogen 750 H dRVVT Confirm Interp Factor V Activity POC ABG pH POC ABG pCO2 POC ABG pO2 Sodium Potassium Chloride Carbon Dioxide BUN Creatinine Glucose POC Glucose Lactic Acid Calcium Phosphorus Magnesium Direct Bilirubin ALT Alkaline Phosphatase Troponin T C-Reactive Protein 15.70 H Total Protein Albumin Triglycerides Cholesterol LDL Cholesterol Direct HDL Cholesterol Urine WBC (Auto) Urine Creatinine Urine Total Protein Vancomycin Trough Rheumatoid Factor 24 H Complement C4 Miscellaneous Test Crossmatch 09/08/16 09/08/16 09/09/16 15:35 18:25 00:24 WBC RBC Hgb Hct MCV MCH MCHC RDW Plt Count Lymph % (Auto) [place] % (Auto) Lymph # [place] # Seg Neutrophils % Seg Neuts % (Manual) Lymphocytes % (Manual) Monocytes % (Manual) Eosinophils % (Manual) Basophils % (Manual) Nucleated RBC % Seg Neutrophils # Seg Neutrophils # Man Lymphocytes # (Manual) Monocytes # (Manual) Eosinophils # (Manual) PT INR Fibrinogen dRVVT Confirm Interp Factor V Activity 182 H POC ABG pH POC ABG pCO2 POC ABG pO2 Sodium Potassium Chloride Carbon Dioxide BUN Creatinine Glucose POC Glucose 184 H 216 H Lactic Acid Calcium Phosphorus Magnesium Direct Bilirubin ALT Alkaline Phosphatase Troponin T C-Reactive Protein Total Protein Albumin Triglycerides Cholesterol LDL Cholesterol Direct HDL Cholesterol Urine WBC (Auto) Urine Creatinine Urine Total Protein Vancomycin Trough Rheumatoid Factor Complement C4 Miscellaneous Test Crossmatch 09/09/16 09/09/16 09/09/16 03:00 03:00 04:04 WBC 27.9 H RBC Hgb 8.7 L Hct 28.1 L MCV 72 L MCH 22 L MCHC RDW 18.4 H Plt Count 485 H Lymph % (Auto) [place] % (Auto) Lymph # [place] # Seg Neutrophils % Seg Neuts % (Manual) 77.0 H Lymphocytes % (Manual) 9.0 L Monocytes % (Manual) Eosinophils % (Manual) Basophils % (Manual) Nucleated RBC % Seg Neutrophils # Seg Neutrophils # Man 21.5 H Lymphocytes # (Manual) Monocytes # (Manual) 2.0 H Eosinophils # (Manual) PT INR Fibrinogen dRVVT Confirm Interp Factor V Activity POC ABG pH POC ABG pCO2 POC ABG pO2 121 H Sodium 135 L Potassium Chloride 96.3 L Carbon Dioxide 21 L BUN 83 H Creatinine 3.0 H Glucose 135 H POC Glucose Lactic Acid Calcium Phosphorus Magnesium Direct Bilirubin ALT Alkaline Phosphatase Troponin T C-Reactive Protein Total Protein Albumin Triglycerides Cholesterol LDL Cholesterol Direct HDL Cholesterol Urine WBC (Auto) Urine Creatinine Urine Total Protein Vancomycin Trough Rheumatoid Factor Complement C4 Miscellaneous Test Crossmatch 09/09/16 09/09/16 09/09/16 05:41 11:55 14:13 WBC RBC Hgb Hct MCV MCH MCHC RDW Plt Count Lymph % (Auto) [place] % (Auto) Lymph # [place] # Seg Neutrophils % Seg Neuts % (Manual) Lymphocytes % (Manual) Monocytes % (Manual) Eosinophils % (Manual) Basophils % (Manual) Nucleated RBC % Seg Neutrophils # Seg Neutrophils # Man Lymphocytes # (Manual) Monocytes # (Manual) Eosinophils # (Manual) PT INR Fibrinogen dRVVT Confirm Interp Factor V Activity POC ABG pH POC ABG pCO2 POC ABG pO2 Sodium Potassium Chloride Carbon Dioxide BUN Creatinine Glucose POC Glucose 155 H 186 H Lactic Acid Calcium Phosphorus Magnesium Direct Bilirubin ALT Alkaline Phosphatase Troponin T C-Reactive Protein Total Protein Albumin Triglycerides Cholesterol LDL Cholesterol Direct HDL Cholesterol Urine WBC (Auto) 25.0 H Urine Creatinine Urine Total Protein Vancomycin Trough Rheumatoid Factor Complement C4 Miscellaneous Test Crossmatch 09/09/16 09/09/16 09/10/16 17:33 23:13 05:09 WBC RBC Hgb Hct MCV MCH MCHC RDW Plt Count Lymph % (Auto) [place] % (Auto) Lymph # [place] # Seg Neutrophils % Seg Neuts % (Manual) Lymphocytes % (Manual) Monocytes % (Manual) Eosinophils % (Manual) Basophils % (Manual) Nucleated RBC % Seg Neutrophils # Seg Neutrophils # Man Lymphocytes # (Manual) Monocytes # (Manual) Eosinophils # (Manual) PT INR Fibrinogen dRVVT Confirm Interp Factor V Activity POC ABG pH POC ABG pCO2 POC ABG pO2 74 L Sodium Potassium Chloride Carbon Dioxide BUN Creatinine Glucose POC Glucose 211 H 215 H Lactic Acid Calcium Phosphorus Magnesium Direct Bilirubin ALT Alkaline Phosphatase Troponin T C-Reactive Protein Total Protein Albumin Triglycerides Cholesterol LDL Cholesterol Direct HDL Cholesterol Urine WBC (Auto) Urine Creatinine Urine Total Protein Vancomycin Trough Rheumatoid Factor Complement C4 Miscellaneous Test Crossmatch 09/10/16 09/10/16 09/10/16 05:17 05:17 11:31 WBC 15.8 H RBC 3.25 L Hgb 7.3 L Hct 22.9 L MCV 71 L MCH 23 L MCHC RDW 18.4 H Plt Count Lymph % (Auto) [place] % (Auto) Lymph # [place] # Seg Neutrophils % Seg Neuts % (Manual) 91.0 H Lymphocytes % (Manual) 4.0 L Monocytes % (Manual) Eosinophils % (Manual) Basophils % (Manual) Nucleated RBC % Seg Neutrophils # Seg Neutrophils # Man 14.4 H Lymphocytes # (Manual) 0.6 L Monocytes # (Manual) Eosinophils # (Manual) PT INR Fibrinogen dRVVT Confirm Interp Factor V Activity POC ABG pH POC ABG pCO2 POC ABG pO2 Sodium Potassium Chloride Carbon Dioxide 21 L BUN 93 H Creatinine 2.9 H Glucose 146 H POC Glucose 188 H Lactic Acid Calcium 8.1 L Phosphorus Magnesium Direct Bilirubin ALT Alkaline Phosphatase Troponin T C-Reactive Protein Total Protein Albumin Triglycerides Cholesterol LDL Cholesterol Direct HDL Cholesterol Urine WBC (Auto) Urine Creatinine Urine Total Protein Vancomycin Trough Rheumatoid Factor Complement C4 Miscellaneous Test Crossmatch 09/10/16 09/10/16 09/10/16 13:17 17:20 23:32 WBC RBC Hgb Hct MCV MCH MCHC RDW Plt Count Lymph % (Auto) [place] % (Auto) Lymph # [place] # Seg Neutrophils % Seg Neuts % (Manual) Lymphocytes % (Manual) Monocytes % (Manual) Eosinophils % (Manual) Basophils % (Manual) Nucleated RBC % Seg Neutrophils # Seg Neutrophils # Man Lymphocytes # (Manual) Monocytes # (Manual) Eosinophils # (Manual) PT INR Fibrinogen dRVVT Confirm Interp Factor V Activity POC ABG pH POC ABG pCO2 POC ABG pO2 Sodium Potassium Chloride Carbon Dioxide BUN Creatinine Glucose POC Glucose 199 H 186 H Lactic Acid Calcium Phosphorus Magnesium Direct Bilirubin ALT Alkaline Phosphatase Troponin T C-Reactive Protein Total Protein Albumin Triglycerides Cholesterol LDL Cholesterol Direct HDL Cholesterol Urine WBC (Auto) Urine Creatinine Urine Total Protein Vancomycin Trough Rheumatoid Factor Complement C4 Miscellaneous Test Crossmatch See Detail 09/11/16 09/11/16 09/11/16 05:10 05:10 05:17 WBC 28.4 H RBC Hgb 9.2 L Hct 29.3 L D MCV 73 L MCH 23 L MCHC RDW 18.9 H Plt Count 452 H Lymph % (Auto) [place] % (Auto) Lymph # [place] # Seg Neutrophils % Seg Neuts % (Manual) 89.5 H Lymphocytes % (Manual) 2.0 L Monocytes % (Manual) Eosinophils % (Manual) Basophils % (Manual) Nucleated RBC % Seg Neutrophils # Seg Neutrophils # Man 25.4 H Lymphocytes # (Manual) 0.6 L Monocytes # (Manual) 1.3 H Eosinophils # (Manual) PT INR Fibrinogen dRVVT Confirm Interp Factor V Activity POC ABG pH POC ABG pCO2 POC ABG pO2 Sodium 136 L Potassium Chloride Carbon Dioxide 18 L BUN 107 H Creatinine 2.6 H Glucose 187 H POC Glucose 230 H Lactic Acid Calcium 8.3 L Phosphorus Magnesium Direct Bilirubin ALT Alkaline Phosphatase Troponin T C-Reactive Protein Total Protein Albumin Triglycerides Cholesterol LDL Cholesterol Direct HDL Cholesterol Urine WBC (Auto) Urine Creatinine Urine Total Protein Vancomycin Trough Rheumatoid Factor Complement C4 Miscellaneous Test Crossmatch 09/11/16 09/11/16 09/11/16 05:55 12:02 17:32 WBC RBC Hgb Hct MCV MCH MCHC RDW Plt Count Lymph % (Auto) [place] % (Auto) Lymph # [place] # Seg Neutrophils % Seg Neuts % (Manual) Lymphocytes % (Manual) Monocytes % (Manual) Eosinophils % (Manual) Basophils % (Manual) Nucleated RBC % Seg Neutrophils # Seg Neutrophils # Man Lymphocytes # (Manual) Monocytes # (Manual) Eosinophils # (Manual) PT INR Fibrinogen dRVVT Confirm Interp Factor V Activity POC ABG pH POC ABG pCO2 33.8 L POC ABG pO2 Sodium Potassium Chloride Carbon Dioxide BUN Creatinine Glucose POC Glucose 191 H 239 H Lactic Acid Calcium Phosphorus Magnesium Direct Bilirubin ALT Alkaline Phosphatase Troponin T C-Reactive Protein Total Protein Albumin Triglycerides Cholesterol LDL Cholesterol Direct HDL Cholesterol Urine WBC (Auto) Urine Creatinine Urine Total Protein Vancomycin Trough Rheumatoid Factor Complement C4 Miscellaneous Test Crossmatch 09/11/16 09/12/16 09/12/16 23:52 05:09 05:32 WBC RBC Hgb Hct MCV MCH MCHC RDW Plt Count Lymph % (Auto) [place] % (Auto) Lymph # [place] # Seg Neutrophils % Seg Neuts % (Manual) Lymphocytes % (Manual) Monocytes % (Manual) Eosinophils % (Manual) Basophils % (Manual) Nucleated RBC % Seg Neutrophils # Seg Neutrophils # Man Lymphocytes # (Manual) Monocytes # (Manual) Eosinophils # (Manual) PT INR Fibrinogen dRVVT Confirm Interp Factor V Activity POC ABG pH POC ABG pCO2 34.6 L POC ABG pO2 Sodium Potassium Chloride Carbon Dioxide BUN Creatinine Glucose POC Glucose 265 H 184 H Lactic Acid Calcium Phosphorus Magnesium Direct Bilirubin ALT Alkaline Phosphatase Troponin T C-Reactive Protein Total Protein Albumin Triglycerides Cholesterol LDL Cholesterol Direct HDL Cholesterol Urine WBC (Auto) Urine Creatinine Urine Total Protein Vancomycin Trough Rheumatoid Factor Complement C4 Miscellaneous Test Crossmatch 09/12/16 09/12/16 09/12/16 06:45 06:45 07:22 WBC 31.7 H RBC 3.54 L Hgb 8.3 L Hct 25.9 L MCV 73 L MCH 23 L MCHC RDW 18.9 H Plt Count Lymph % (Auto) [place] % (Auto) Lymph # [place] # Seg Neutrophils % Seg Neuts % (Manual) 88.5 H Lymphocytes % (Manual) 4.5 L Monocytes % (Manual) Eosinophils % (Manual) Basophils % (Manual) Nucleated RBC % Seg Neutrophils # Seg Neutrophils # Man 28.1 H Lymphocytes # (Manual) Monocytes # (Manual) 1.0 H Eosinophils # (Manual) PT INR Fibrinogen dRVVT Confirm Interp Factor V Activity POC ABG pH POC ABG pCO2 POC ABG pO2 Sodium Potassium Chloride Carbon Dioxide 20 L BUN 115 H Creatinine 2.7 H Glucose 165 H POC Glucose Lactic Acid Calcium 8.0 L Phosphorus Magnesium Direct Bilirubin ALT Alkaline Phosphatase Troponin T C-Reactive Protein Total Protein Albumin Triglycerides 217 H Cholesterol LDL Cholesterol Direct HDL Cholesterol Urine WBC (Auto) Urine Creatinine Urine Total Protein Vancomycin Trough Rheumatoid Factor Complement C4 Miscellaneous Test Crossmatch 09/12/16 09/12/16 09/12/16 07:22 09:59 12:21 WBC RBC Hgb Hct MCV MCH MCHC RDW Plt Count Lymph % (Auto) [place] % (Auto) Lymph # [place] # Seg Neutrophils % Seg Neuts % (Manual) Lymphocytes % (Manual) Monocytes % (Manual) Eosinophils % (Manual) Basophils % (Manual) Nucleated RBC % Seg Neutrophils # Seg Neutrophils # Man Lymphocytes # (Manual) Monocytes # (Manual) Eosinophils # (Manual) PT INR Fibrinogen dRVVT Confirm Interp Positive H Factor V Activity POC ABG pH POC ABG pCO2 POC ABG pO2 Sodium Potassium Chloride Carbon Dioxide BUN Creatinine Glucose POC Glucose 224 H Lactic Acid Calcium Phosphorus Magnesium Direct Bilirubin ALT Alkaline Phosphatase Troponin T C-Reactive Protein 1.70 H Total Protein Albumin Triglycerides Cholesterol LDL Cholesterol Direct HDL Cholesterol Urine WBC (Auto) Urine Creatinine Urine Total Protein Vancomycin Trough Rheumatoid Factor Complement C4 Miscellaneous Test Crossmatch 09/12/16 09/12/16 09/13/16 16:51 23:28 04:00 WBC 45.0 H* RBC Hgb 9.4 L Hct MCV 75 L MCH 23 L MCHC RDW 19.0 H Plt Count 470 H Lymph % (Auto) [place] % (Auto) Lymph # [place] # Seg Neutrophils % Seg Neuts % (Manual) 89.0 H Lymphocytes % (Manual) 5.0 L Monocytes % (Manual) Eosinophils % (Manual) Basophils % (Manual) Nucleated RBC % Seg Neutrophils # Seg Neutrophils # Man 40.1 H Lymphocytes # (Manual) Monocytes # (Manual) Eosinophils # (Manual) PT INR Fibrinogen dRVVT Confirm Interp Factor V Activity POC ABG pH POC ABG pCO2 POC ABG pO2 Sodium Potassium Chloride Carbon Dioxide BUN Creatinine Glucose POC Glucose 169 H 150 H Lactic Acid Calcium Phosphorus Magnesium Direct Bilirubin ALT Alkaline Phosphatase Troponin T C-Reactive Protein Total Protein Albumin Triglycerides Cholesterol LDL Cholesterol Direct HDL Cholesterol Urine WBC (Auto) Urine Creatinine Urine Total Protein Vancomycin Trough Rheumatoid Factor Complement C4 Miscellaneous Test Crossmatch 09/13/16 09/13/16 09/13/16 04:00 11:26 17:31 WBC RBC Hgb Hct MCV MCH MCHC RDW Plt Count Lymph % (Auto) [place] % (Auto) Lymph # [place] # Seg Neutrophils % Seg Neuts % (Manual) Lymphocytes % (Manual) Monocytes % (Manual) Eosinophils % (Manual) Basophils % (Manual) Nucleated RBC % Seg Neutrophils # Seg Neutrophils # Man Lymphocytes # (Manual) Monocytes # (Manual) Eosinophils # (Manual) PT INR Fibrinogen dRVVT Confirm Interp Factor V Activity POC ABG pH POC ABG pCO2 POC ABG pO2 Sodium Potassium Chloride Carbon Dioxide 20 L BUN 116 H Creatinine 3.0 H Glucose 172 H POC Glucose 140 H 183 H Lactic Acid Calcium Phosphorus Magnesium Direct Bilirubin ALT Alkaline Phosphatase Troponin T C-Reactive Protein Total Protein 6.2 L Albumin 2.9 L Triglycerides Cholesterol LDL Cholesterol Direct HDL Cholesterol Urine WBC (Auto) Urine Creatinine Urine Total Protein Vancomycin Trough Rheumatoid Factor Complement C4 Miscellaneous Test Crossmatch 09/13/16 09/14/16 09/14/16 23:23 04:06 04:07 WBC 29.4 H RBC Hgb 8.9 L Hct 27.3 L MCV 75 L MCH 24 L MCHC RDW 19.1 H Plt Count Lymph % (Auto) [place] % (Auto) Lymph # [place] # Seg Neutrophils % Seg Neuts % (Manual) 84.0 H Lymphocytes % (Manual) 6.0 L Monocytes % (Manual) 9.0 H Eosinophils % (Manual) Basophils % (Manual) Nucleated RBC % Seg Neutrophils # Seg Neutrophils # Man 24.7 H Lymphocytes # (Manual) Monocytes # (Manual) 2.6 H Eosinophils # (Manual) PT INR Fibrinogen dRVVT Confirm Interp Factor V Activity POC ABG pH 7.342 L POC ABG pCO2 POC ABG pO2 116 H Sodium Potassium Chloride Carbon Dioxide BUN Creatinine Glucose POC Glucose 154 H Lactic Acid Calcium Phosphorus Magnesium Direct Bilirubin ALT Alkaline Phosphatase Troponin T C-Reactive Protein Total Protein Albumin Triglycerides Cholesterol LDL Cholesterol Direct HDL Cholesterol Urine WBC (Auto) Urine Creatinine Urine Total Protein Vancomycin Trough Rheumatoid Factor Complement C4 Miscellaneous Test Crossmatch 09/14/16 09/14/16 09/14/16 04:07 05:29 12:19 WBC RBC Hgb Hct MCV MCH MCHC RDW Plt Count Lymph % (Auto) [place] % (Auto) Lymph # [place] # Seg Neutrophils % Seg Neuts % (Manual) Lymphocytes % (Manual) Monocytes % (Manual) Eosinophils % (Manual) Basophils % (Manual) Nucleated RBC % Seg Neutrophils # Seg Neutrophils # Man Lymphocytes # (Manual) Monocytes # (Manual) Eosinophils # (Manual) PT INR Fibrinogen dRVVT Confirm Interp Factor V Activity POC ABG pH POC ABG pCO2 POC ABG pO2 Sodium 136 L Potassium Chloride Carbon Dioxide 18 L BUN 121 H Creatinine 2.8 H Glucose 214 H POC Glucose 239 H 181 H Lactic Acid Calcium Phosphorus Magnesium Direct Bilirubin ALT Alkaline Phosphatase Troponin T C-Reactive Protein Total Protein Albumin Triglycerides Cholesterol LDL Cholesterol Direct HDL Cholesterol Urine WBC (Auto) Urine Creatinine Urine Total Protein Vancomycin Trough Rheumatoid Factor Complement C4 Miscellaneous Test Crossmatch 09/14/16 09/14/16 09/15/16 18:12 23:37 05:00 WBC 26.1 H RBC 3.05 L Hgb 7.2 L Hct 22.9 L MCV 75 L MCH 24 L MCHC RDW 19.0 H Plt Count Lymph % (Auto) [place] % (Auto) Lymph # [place] # Seg Neutrophils % Seg Neuts % (Manual) Lymphocytes % (Manual) Monocytes % (Manual) Eosinophils % (Manual) Basophils % (Manual) Nucleated RBC % Seg Neutrophils # Seg Neutrophils # Man Lymphocytes # (Manual) Monocytes # (Manual) Eosinophils # (Manual) PT INR Fibrinogen dRVVT Confirm Interp Factor V Activity POC ABG pH POC ABG pCO2 POC ABG pO2 Sodium Potassium Chloride Carbon Dioxide BUN Creatinine Glucose POC Glucose 266 H 154 H Lactic Acid Calcium Phosphorus Magnesium Direct Bilirubin ALT Alkaline Phosphatase Troponin T C-Reactive Protein Total Protein Albumin Triglycerides Cholesterol LDL Cholesterol Direct HDL Cholesterol Urine WBC (Auto) Urine Creatinine Urine Total Protein Vancomycin Trough Rheumatoid Factor Complement C4 Miscellaneous Test Crossmatch 09/15/16 09/15/16 09/15/16 05:00 05:17 12:45 WBC RBC Hgb Hct MCV MCH MCHC RDW Plt Count Lymph % (Auto) [place] % (Auto) Lymph # [place] # Seg Neutrophils % Seg Neuts % (Manual) Lymphocytes % (Manual) Monocytes % (Manual) Eosinophils % (Manual) Basophils % (Manual) Nucleated RBC % Seg Neutrophils # Seg Neutrophils # Man Lymphocytes # (Manual) Monocytes # (Manual) Eosinophils # (Manual) PT INR Fibrinogen dRVVT Confirm Interp Factor V Activity POC ABG pH POC ABG pCO2 POC ABG pO2 Sodium Potassium 5.2 H Chloride Carbon Dioxide 18 L BUN 139 H Creatinine 3.7 H Glucose 227 H POC Glucose 226 H 244 H Lactic Acid Calcium 8.3 L Phosphorus Magnesium Direct Bilirubin ALT Alkaline Phosphatase Troponin T C-Reactive Protein Total Protein Albumin Triglycerides Cholesterol LDL Cholesterol Direct HDL Cholesterol Urine WBC (Auto) Urine Creatinine Urine Total Protein Vancomycin Trough Rheumatoid Factor Complement C4 Miscellaneous Test Crossmatch 09/15/16 09/15/16 09/15/16 14:32 17:33 23:35 WBC RBC Hgb Hct MCV MCH MCHC RDW Plt Count Lymph % (Auto) [place] % (Auto) Lymph # [place] # Seg Neutrophils % Seg Neuts % (Manual) Lymphocytes % (Manual) Monocytes % (Manual) Eosinophils % (Manual) Basophils % (Manual) Nucleated RBC % Seg Neutrophils # Seg Neutrophils # Man Lymphocytes # (Manual) Monocytes # (Manual) Eosinophils # (Manual) PT INR Fibrinogen dRVVT Confirm Interp Factor V Activity POC ABG pH POC ABG pCO2 27.7 L POC ABG pO2 120 H Sodium Potassium Chloride Carbon Dioxide BUN Creatinine Glucose POC Glucose 232 H 167 H Lactic Acid Calcium Phosphorus Magnesium Direct Bilirubin ALT Alkaline Phosphatase Troponin T C-Reactive Protein Total Protein Albumin Triglycerides Cholesterol LDL Cholesterol Direct HDL Cholesterol Urine WBC (Auto) Urine Creatinine Urine Total Protein Vancomycin Trough Rheumatoid Factor Complement C4 Miscellaneous Test Crossmatch 09/16/16 09/16/16 09/16/16 03:58 10:27 10:27 WBC 19.0 H RBC 2.77 L Hgb 6.5 L Hct 20.9 L MCV 76 L MCH 23 L MCHC RDW 19.3 H Plt Count Lymph % (Auto) 11.0 L [place] % (Auto) Lymph # [place] # 1.1 H Seg Neutrophils % 82.5 H Seg Neuts % (Manual) Lymphocytes % (Manual) Monocytes % (Manual) Eosinophils % (Manual) Basophils % (Manual) Nucleated RBC % Seg Neutrophils # 15.7 H Seg Neutrophils # Man Lymphocytes # (Manual) Monocytes # (Manual) Eosinophils # (Manual) PT INR Fibrinogen dRVVT Confirm Interp Factor V Activity POC ABG pH POC ABG pCO2 POC ABG pO2 Sodium Potassium Chloride 109.3 H Carbon Dioxide 18 L BUN 139 H Creatinine 4.1 H Glucose 144 H POC Glucose 146 H Lactic Acid Calcium 8.1 L Phosphorus Magnesium Direct Bilirubin ALT Alkaline Phosphatase Troponin T C-Reactive Protein Total Protein Albumin Triglycerides Cholesterol LDL Cholesterol Direct HDL Cholesterol Urine WBC (Auto) Urine Creatinine Urine Total Protein Vancomycin Trough Rheumatoid Factor Complement C4 Miscellaneous Test Crossmatch 09/16/16 09/16/16 09/16/16 12:04 12:10 13:55 WBC RBC Hgb Hct MCV MCH MCHC RDW Plt Count Lymph % (Auto) [place] % (Auto) Lymph # [place] # Seg Neutrophils % Seg Neuts % (Manual) Lymphocytes % (Manual) Monocytes % (Manual) Eosinophils % (Manual) Basophils % (Manual) Nucleated RBC % Seg Neutrophils # Seg Neutrophils # Man Lymphocytes # (Manual) Monocytes # (Manual) Eosinophils # (Manual) PT INR Fibrinogen dRVVT Confirm Interp Factor V Activity POC ABG pH POC ABG pCO2 32.9 L POC ABG pO2 Sodium Potassium Chloride Carbon Dioxide BUN Creatinine Glucose POC Glucose 185 H Lactic Acid Calcium Phosphorus Magnesium Direct Bilirubin ALT Alkaline Phosphatase Troponin T C-Reactive Protein Total Protein Albumin Triglycerides Cholesterol LDL Cholesterol Direct HDL Cholesterol Urine WBC (Auto) Urine Creatinine Urine Total Protein Vancomycin Trough Rheumatoid Factor Complement C4 Miscellaneous Test Crossmatch See Detail 09/16/16 09/16/16 09/16/16 17:55 19:19 23:48 WBC RBC Hgb Hct MCV MCH MCHC RDW Plt Count Lymph % (Auto) [place] % (Auto) Lymph # [place] # Seg Neutrophils % Seg Neuts % (Manual) Lymphocytes % (Manual) Monocytes % (Manual) Eosinophils % (Manual) Basophils % (Manual) Nucleated RBC % Seg Neutrophils # Seg Neutrophils # Man Lymphocytes # (Manual) Monocytes # (Manual) Eosinophils # (Manual) PT INR Fibrinogen dRVVT Confirm Interp Factor V Activity POC ABG pH POC ABG pCO2 POC ABG pO2 Sodium Potassium Chloride Carbon Dioxide BUN Creatinine Glucose POC Glucose 222 H 107 H Lactic Acid Calcium Phosphorus Magnesium Direct Bilirubin ALT Alkaline Phosphatase Troponin T C-Reactive Protein Total Protein Albumin Triglycerides Cholesterol LDL Cholesterol Direct HDL Cholesterol Urine WBC (Auto) Urine Creatinine 47.4 H Urine Total Protein 16 H Vancomycin Trough Rheumatoid Factor Complement C4 Miscellaneous Test Crossmatch 09/17/16 09/17/16 09/17/16 03:45 03:45 04:55 WBC 19.6 H RBC 3.41 L Hgb 8.5 L Hct 26.7 L MCV 78 L MCH 25 L MCHC RDW 19.9 H Plt Count Lymph % (Auto) 9.3 L [place] % (Auto) Lymph # [place] # 1.2 H Seg Neutrophils % 83.9 H Seg Neuts % (Manual) Lymphocytes % (Manual) Monocytes % (Manual) Eosinophils % (Manual) Basophils % (Manual) Nucleated RBC % Seg Neutrophils # 16.4 H Seg Neutrophils # Man Lymphocytes # (Manual) Monocytes # (Manual) Eosinophils # (Manual) PT INR Fibrinogen dRVVT Confirm Interp Factor V Activity POC ABG pH POC ABG pCO2 POC ABG pO2 Sodium 146 H Potassium 5.1 H Chloride 110.9 H Carbon Dioxide 16 L BUN 146 H Creatinine 4.0 H Glucose 108 H POC Glucose 133 H Lactic Acid Calcium Phosphorus Magnesium 3.00 H Direct Bilirubin ALT Alkaline Phosphatase Troponin T C-Reactive Protein Total Protein Albumin Triglycerides Cholesterol LDL Cholesterol Direct HDL Cholesterol Urine WBC (Auto) Urine Creatinine Urine Total Protein Vancomycin Trough Rheumatoid Factor Complement C4 Miscellaneous Test Crossmatch 09/17/16 09/17/16 09/17/16 11:15 17:33 23:47 WBC RBC Hgb Hct MCV MCH MCHC RDW Plt Count Lymph % (Auto) [place] % (Auto) Lymph # [place] # Seg Neutrophils % Seg Neuts % (Manual) Lymphocytes % (Manual) Monocytes % (Manual) Eosinophils % (Manual) Basophils % (Manual) Nucleated RBC % Seg Neutrophils # Seg Neutrophils # Man Lymphocytes # (Manual) Monocytes # (Manual) Eosinophils # (Manual) PT INR Fibrinogen dRVVT Confirm Interp Factor V Activity POC ABG pH POC ABG pCO2 POC ABG pO2 Sodium Potassium Chloride Carbon Dioxide BUN Creatinine Glucose POC Glucose 176 H 246 H 148 H Lactic Acid Calcium Phosphorus Magnesium Direct Bilirubin ALT Alkaline Phosphatase Troponin T C-Reactive Protein Total Protein Albumin Triglycerides Cholesterol LDL Cholesterol Direct HDL Cholesterol Urine WBC (Auto) Urine Creatinine Urine Total Protein Vancomycin Trough Rheumatoid Factor Complement C4 Miscellaneous Test Crossmatch 09/18/16 09/18/16 09/18/16 05:33 08:31 08:31 WBC 18.0 H RBC 3.17 L Hgb 9.0 L Hct 25.7 L MCV MCH MCHC 35 H RDW 20.4 H Plt Count Lymph % (Auto) [place] % (Auto) Lymph # [place] # Seg Neutrophils % Seg Neuts % (Manual) Lymphocytes % (Manual) Monocytes % (Manual) Eosinophils % (Manual) Basophils % (Manual) Nucleated RBC % Seg Neutrophils # Seg Neutrophils # Man Lymphocytes # (Manual) Monocytes # (Manual) Eosinophils # (Manual) PT INR Fibrinogen dRVVT Confirm Interp Factor V Activity POC ABG pH POC ABG pCO2 POC ABG pO2 Sodium Potassium Chloride Carbon Dioxide 15 L BUN 124 H Creatinine 3.8 H Glucose POC Glucose 120 H Lactic Acid Calcium 8.1 L Phosphorus Magnesium Direct Bilirubin ALT Alkaline Phosphatase Troponin T C-Reactive Protein Total Protein Albumin Triglycerides Cholesterol LDL Cholesterol Direct HDL Cholesterol Urine WBC (Auto) Urine Creatinine Urine Total Protein Vancomycin Trough Rheumatoid Factor Complement C4 Miscellaneous Test Crossmatch 09/18/16 09/18/16 09/18/16 12:03 15:34 17:50 WBC RBC Hgb Hct MCV MCH MCHC RDW Plt Count Lymph % (Auto) [place] % (Auto) Lymph # [place] # Seg Neutrophils % Seg Neuts % (Manual) Lymphocytes % (Manual) Monocytes % (Manual) Eosinophils % (Manual) Basophils % (Manual) Nucleated RBC % Seg Neutrophils # Seg Neutrophils # Man Lymphocytes # (Manual) Monocytes # (Manual) Eosinophils # (Manual) PT INR Fibrinogen dRVVT Confirm Interp Factor V Activity POC ABG pH POC ABG pCO2 25.7 L POC ABG pO2 66 L Sodium Potassium Chloride Carbon Dioxide BUN Creatinine Glucose POC Glucose 156 H 220 H Lactic Acid Calcium Phosphorus Magnesium Direct Bilirubin ALT Alkaline Phosphatase Troponin T C-Reactive Protein Total Protein Albumin Triglycerides Cholesterol LDL Cholesterol Direct HDL Cholesterol Urine WBC (Auto) Urine Creatinine Urine Total Protein Vancomycin Trough Rheumatoid Factor Complement C4 Miscellaneous Test Crossmatch 09/19/16 09/19/16 09/19/16 06:21 09:50 09:50 WBC 17.1 H RBC 3.49 L Hgb 9.0 L Hct 28.1 L MCV MCH 26 L MCHC RDW 20.8 H Plt Count Lymph % (Auto) 11.5 L [place] % (Auto) 7.5 H Lymph # [place] # 1.3 H Seg Neutrophils % 79.8 H Seg Neuts % (Manual) Lymphocytes % (Manual) Monocytes % (Manual) Eosinophils % (Manual) Basophils % (Manual) Nucleated RBC % Seg Neutrophils # 13.7 H Seg Neutrophils # Man Lymphocytes # (Manual) Monocytes # (Manual) Eosinophils # (Manual) PT INR Fibrinogen dRVVT Confirm Interp Factor V Activity POC ABG pH POC ABG pCO2 POC ABG pO2 Sodium Potassium Chloride 108.6 H Carbon Dioxide 15 L BUN 125 H Creatinine 4.1 H Glucose 124 H POC Glucose 119 H Lactic Acid Calcium Phosphorus Magnesium Direct Bilirubin ALT Alkaline Phosphatase Troponin T C-Reactive Protein Total Protein Albumin Triglycerides Cholesterol LDL Cholesterol Direct HDL Cholesterol Urine WBC (Auto) Urine Creatinine Urine Total Protein Vancomycin Trough Rheumatoid Factor Complement C4 Miscellaneous Test Crossmatch 09/19/16 09/19/16 09/19/16 11:25 17:53 23:36 WBC RBC Hgb Hct MCV MCH MCHC RDW Plt Count Lymph % (Auto) [place] % (Auto) Lymph # [place] # Seg Neutrophils % Seg Neuts % (Manual) Lymphocytes % (Manual) Monocytes % (Manual) Eosinophils % (Manual) Basophils % (Manual) Nucleated RBC % Seg Neutrophils # Seg Neutrophils # Man Lymphocytes # (Manual) Monocytes # (Manual) Eosinophils # (Manual) PT INR Fibrinogen dRVVT Confirm Interp Factor V Activity POC ABG pH POC ABG pCO2 POC ABG pO2 Sodium Potassium Chloride Carbon Dioxide BUN Creatinine Glucose POC Glucose 160 H 245 H 121 H Lactic Acid Calcium Phosphorus Magnesium Direct Bilirubin ALT Alkaline Phosphatase Troponin T C-Reactive Protein Total Protein Albumin Triglycerides Cholesterol LDL Cholesterol Direct HDL Cholesterol Urine WBC (Auto) Urine Creatinine Urine Total Protein Vancomycin Trough Rheumatoid Factor Complement C4 Miscellaneous Test Crossmatch 09/20/16 09/20/16 09/20/16 04:10 04:10 04:10 WBC 17.0 H RBC 3.21 L Hgb 8.2 L Hct 25.5 L MCV MCH 26 L MCHC RDW 20.9 H Plt Count Lymph % (Auto) [place] % (Auto) Lymph # [place] # Seg Neutrophils % Seg Neuts % (Manual) Lymphocytes % (Manual) Monocytes % (Manual) Eosinophils % (Manual) Basophils % (Manual) Nucleated RBC % Seg Neutrophils # Seg Neutrophils # Man Lymphocytes # (Manual) Monocytes # (Manual) Eosinophils # (Manual) PT INR Fibrinogen dRVVT Confirm Interp Factor V Activity POC ABG pH POC ABG pCO2 POC ABG pO2 Sodium Potassium Chloride 111.0 H Carbon Dioxide 16 L BUN 129 H Creatinine 3.7 H Glucose 115 H POC Glucose Lactic Acid Calcium 8.2 L Phosphorus Magnesium Direct Bilirubin ALT Alkaline Phosphatase Troponin T C-Reactive Protein Total Protein Albumin Triglycerides 243 H Cholesterol LDL Cholesterol Direct HDL Cholesterol Urine WBC (Auto) Urine Creatinine Urine Total Protein Vancomycin Trough Rheumatoid Factor Complement C4 Miscellaneous Test Crossmatch 09/20/16 09/20/16 09/20/16 05:40 11:52 16:50 WBC RBC Hgb Hct MCV MCH MCHC RDW Plt Count Lymph % (Auto) [place] % (Auto) Lymph # [place] # Seg Neutrophils % Seg Neuts % (Manual) Lymphocytes % (Manual) Monocytes % (Manual) Eosinophils % (Manual) Basophils % (Manual) Nucleated RBC % Seg Neutrophils # Seg Neutrophils # Man Lymphocytes # (Manual) Monocytes # (Manual) Eosinophils # (Manual) PT INR Fibrinogen dRVVT Confirm Interp Factor V Activity POC ABG pH POC ABG pCO2 POC ABG pO2 Sodium Potassium Chloride Carbon Dioxide BUN Creatinine Glucose POC Glucose 131 H 183 H 236 H Lactic Acid Calcium Phosphorus Magnesium Direct Bilirubin ALT Alkaline Phosphatase Troponin T C-Reactive Protein Total Protein Albumin Triglycerides Cholesterol LDL Cholesterol Direct HDL Cholesterol Urine WBC (Auto) Urine Creatinine Urine Total Protein Vancomycin Trough Rheumatoid Factor Complement C4 Miscellaneous Test Crossmatch 09/20/16 09/21/16 09/21/16 23:51 03:30 04:44 WBC RBC Hgb Hct MCV MCH MCHC RDW Plt Count Lymph % (Auto) [place] % (Auto) Lymph # [place] # Seg Neutrophils % Seg Neuts % (Manual) Lymphocytes % (Manual) Monocytes % (Manual) Eosinophils % (Manual) Basophils % (Manual) Nucleated RBC % Seg Neutrophils # Seg Neutrophils # Man Lymphocytes # (Manual) Monocytes # (Manual) Eosinophils # (Manual) PT INR Fibrinogen dRVVT Confirm Interp Factor V Activity POC ABG pH POC ABG pCO2 POC ABG pO2 Sodium Potassium Chloride Carbon Dioxide BUN Creatinine Glucose POC Glucose 114 H 141 H Lactic Acid Calcium Phosphorus Magnesium 2.70 H Direct Bilirubin ALT Alkaline Phosphatase Troponin T C-Reactive Protein Total Protein Albumin Triglycerides Cholesterol LDL Cholesterol Direct HDL Cholesterol Urine WBC (Auto) Urine Creatinine Urine Total Protein Vancomycin Trough Rheumatoid Factor Complement C4 Miscellaneous Test Crossmatch 09/21/16 09/21/16 09/21/16 07:45 07:45 10:01 WBC 13.8 H RBC 2.94 L Hgb 7.5 L Hct 23.5 L MCV MCH 26 L MCHC RDW 21.2 H Plt Count Lymph % (Auto) 6.9 L [place] % (Auto) 9.4 H Lymph # 0.9 L [place] # 1.3 H Seg Neutrophils % 83.2 H Seg Neuts % (Manual) Lymphocytes % (Manual) Monocytes % (Manual) Eosinophils % (Manual) Basophils % (Manual) Nucleated RBC % Seg Neutrophils # 11.5 H Seg Neutrophils # Man Lymphocytes # (Manual) Monocytes # (Manual) Eosinophils # (Manual) PT INR Fibrinogen dRVVT Confirm Interp Factor V Activity POC ABG pH 7.308 L POC ABG pCO2 31.9 L POC ABG pO2 148 H Sodium 147 H Potassium Chloride 114.2 H Carbon Dioxide 15 L BUN 120 H Creatinine 3.9 H Glucose 156 H POC Glucose Lactic Acid Calcium 8.2 L Phosphorus Magnesium Direct Bilirubin ALT Alkaline Phosphatase Troponin T C-Reactive Protein Total Protein Albumin Triglycerides Cholesterol LDL Cholesterol Direct HDL Cholesterol Urine WBC (Auto) Urine Creatinine Urine Total Protein Vancomycin Trough Rheumatoid Factor Complement C4 Miscellaneous Test Crossmatch 09/21/16 09/21/16 09/21/16 12:00 12:03 13:00 WBC RBC Hgb Hct MCV MCH MCHC RDW Plt Count Lymph % (Auto) [place] % (Auto) Lymph # [place] # Seg Neutrophils % Seg Neuts % (Manual) Lymphocytes % (Manual) Monocytes % (Manual) Eosinophils % (Manual) Basophils % (Manual) Nucleated RBC % Seg Neutrophils # Seg Neutrophils # Man Lymphocytes # (Manual) Monocytes # (Manual) Eosinophils # (Manual) PT INR Fibrinogen dRVVT Confirm Interp Factor V Activity POC ABG pH POC ABG pCO2 POC ABG pO2 Sodium Potassium Chloride Carbon Dioxide BUN Creatinine Glucose POC Glucose 163 H Lactic Acid Calcium Phosphorus Magnesium Direct Bilirubin ALT Alkaline Phosphatase Troponin T C-Reactive Protein Total Protein Albumin Triglycerides Cholesterol LDL Cholesterol Direct HDL Cholesterol Urine WBC (Auto) Urine Creatinine 54.8 H Urine Total Protein Vancomycin Trough 2.3 L Rheumatoid Factor Complement C4 Miscellaneous Test Crossmatch 09/21/16 09/21/16 09/22/16 16:51 23:17 06:27 WBC RBC Hgb Hct MCV MCH MCHC RDW Plt Count Lymph % (Auto) [place] % (Auto) Lymph # [place] # Seg Neutrophils % Seg Neuts % (Manual) Lymphocytes % (Manual) Monocytes % (Manual) Eosinophils % (Manual) Basophils % (Manual) Nucleated RBC % Seg Neutrophils # Seg Neutrophils # Man Lymphocytes # (Manual) Monocytes # (Manual) Eosinophils # (Manual) PT INR Fibrinogen dRVVT Confirm Interp Factor V Activity POC ABG pH POC ABG pCO2 POC ABG pO2 Sodium Potassium Chloride Carbon Dioxide BUN Creatinine Glucose POC Glucose 206 H 114 H 115 H Lactic Acid Calcium Phosphorus Magnesium Direct Bilirubin ALT Alkaline Phosphatase Troponin T C-Reactive Protein Total Protein Albumin Triglycerides Cholesterol LDL Cholesterol Direct HDL Cholesterol Urine WBC (Auto) Urine Creatinine Urine Total Protein Vancomycin Trough Rheumatoid Factor Complement C4 Miscellaneous Test Crossmatch 09/22/16 09/22/16 09/22/16 07:50 07:50 12:00 WBC 17.8 H RBC 3.04 L Hgb 8.0 L Hct 24.7 L MCV MCH 26 L MCHC RDW 21.6 H Plt Count Lymph % (Auto) [place] % (Auto) Lymph # [place] # Seg Neutrophils % Seg Neuts % (Manual) Lymphocytes % (Manual) Monocytes % (Manual) Eosinophils % (Manual) Basophils % (Manual) Nucleated RBC % Seg Neutrophils # Seg Neutrophils # Man Lymphocytes # (Manual) Monocytes # (Manual) Eosinophils # (Manual) PT INR Fibrinogen dRVVT Confirm Interp Factor V Activity POC ABG pH POC ABG pCO2 POC ABG pO2 Sodium 150 H Potassium Chloride 118.2 H Carbon Dioxide 14 L BUN 111 H Creatinine 3.7 H Glucose 157 H POC Glucose 183 H Lactic Acid Calcium Phosphorus Magnesium Direct Bilirubin ALT Alkaline Phosphatase Troponin T C-Reactive Protein Total Protein Albumin Triglycerides Cholesterol LDL Cholesterol Direct HDL Cholesterol Urine WBC (Auto) Urine Creatinine Urine Total Protein Vancomycin Trough Rheumatoid Factor Complement C4 Miscellaneous Test Crossmatch 09/22/16 09/22/16 09/23/16 17:29 23:10 05:00 WBC 19.2 H RBC 3.13 L Hgb 8.0 L Hct 25.2 L MCV MCH 26 L MCHC RDW 22.1 H Plt Count Lymph % (Auto) [place] % (Auto) Lymph # [place] # Seg Neutrophils % Seg Neuts % (Manual) 92.0 H Lymphocytes % (Manual) 3.0 L Monocytes % (Manual) Eosinophils % (Manual) Basophils % (Manual) Nucleated RBC % Seg Neutrophils # Seg Neutrophils # Man 17.7 H Lymphocytes # (Manual) 0.6 L Monocytes # (Manual) Eosinophils # (Manual) PT INR Fibrinogen dRVVT Confirm Interp Factor V Activity POC ABG pH POC ABG pCO2 POC ABG pO2 Sodium Potassium Chloride Carbon Dioxide BUN Creatinine Glucose POC Glucose 197 H 169 H Lactic Acid Calcium Phosphorus Magnesium Direct Bilirubin ALT Alkaline Phosphatase Troponin T C-Reactive Protein Total Protein Albumin Triglycerides Cholesterol LDL Cholesterol Direct HDL Cholesterol Urine WBC (Auto) Urine Creatinine Urine Total Protein Vancomycin Trough Rheumatoid Factor Complement C4 Miscellaneous Test Crossmatch 09/23/16 09/23/16 09/23/16 05:00 05:00 05:10 WBC RBC Hgb Hct MCV MCH MCHC RDW Plt Count Lymph % (Auto) [place] % (Auto) Lymph # [place] # Seg Neutrophils % Seg Neuts % (Manual) Lymphocytes % (Manual) Monocytes % (Manual) Eosinophils % (Manual) Basophils % (Manual) Nucleated RBC % Seg Neutrophils # Seg Neutrophils # Man Lymphocytes # (Manual) Monocytes # (Manual) Eosinophils # (Manual) PT INR Fibrinogen dRVVT Confirm Interp Factor V Activity POC ABG pH POC ABG pCO2 POC ABG pO2 Sodium 147 H Potassium 3.2 L Chloride 115.7 H Carbon Dioxide 13 L BUN 111 H Creatinine 3.8 H Glucose 194 H POC Glucose 188 H Lactic Acid Calcium 7.3 L D Phosphorus Magnesium Direct Bilirubin ALT Alkaline Phosphatase Troponin T C-Reactive Protein 3.20 H Total Protein Albumin Triglycerides Cholesterol LDL Cholesterol Direct HDL Cholesterol Urine WBC (Auto) Urine Creatinine Urine Total Protein Vancomycin Trough Rheumatoid Factor Complement C4 Miscellaneous Test Crossmatch 09/23/16 09/23/16 09/23/16 11:37 12:29 18:01 WBC RBC Hgb Hct MCV MCH MCHC RDW Plt Count Lymph % (Auto) [place] % (Auto) Lymph # [place] # Seg Neutrophils % Seg Neuts % (Manual) Lymphocytes % (Manual) Monocytes % (Manual) Eosinophils % (Manual) Basophils % (Manual) Nucleated RBC % Seg Neutrophils # Seg Neutrophils # Man Lymphocytes # (Manual) Monocytes # (Manual) Eosinophils # (Manual) PT INR Fibrinogen dRVVT Confirm Interp Factor V Activity POC ABG pH POC ABG pCO2 18.9 L POC ABG pO2 143 H Sodium Potassium Chloride Carbon Dioxide BUN Creatinine Glucose POC Glucose 153 H 108 H Lactic Acid Calcium Phosphorus Magnesium Direct Bilirubin ALT Alkaline Phosphatase Troponin T C-Reactive Protein Total Protein Albumin Triglycerides Cholesterol LDL Cholesterol Direct HDL Cholesterol Urine WBC (Auto) Urine Creatinine Urine Total Protein Vancomycin Trough Rheumatoid Factor Complement C4 Miscellaneous Test Crossmatch 09/23/16 09/23/16 09/24/16 21:19 23:43 05:16 WBC RBC Hgb Hct MCV MCH MCHC RDW Plt Count Lymph % (Auto) [place] % (Auto) Lymph # [place] # Seg Neutrophils % Seg Neuts % (Manual) Lymphocytes % (Manual) Monocytes % (Manual) Eosinophils % (Manual) Basophils % (Manual) Nucleated RBC % Seg Neutrophils # Seg Neutrophils # Man Lymphocytes # (Manual) Monocytes # (Manual) Eosinophils # (Manual) PT INR Fibrinogen dRVVT Confirm Interp Factor V Activity POC ABG pH POC ABG pCO2 17.3 L POC ABG pO2 112 H Sodium Potassium Chloride Carbon Dioxide BUN Creatinine Glucose POC Glucose 143 H 164 H Lactic Acid Calcium Phosphorus Magnesium Direct Bilirubin ALT Alkaline Phosphatase Troponin T C-Reactive Protein Total Protein Albumin Triglycerides Cholesterol LDL Cholesterol Direct HDL Cholesterol Urine WBC (Auto) Urine Creatinine Urine Total Protein Vancomycin Trough Rheumatoid Factor Complement C4 Miscellaneous Test Crossmatch 09/24/16 09/24/16 09/24/16 05:21 11:58 17:06 WBC RBC Hgb Hct MCV MCH MCHC RDW Plt Count Lymph % (Auto) [place] % (Auto) Lymph # [place] # Seg Neutrophils % Seg Neuts % (Manual) Lymphocytes % (Manual) Monocytes % (Manual) Eosinophils % (Manual) Basophils % (Manual) Nucleated RBC % Seg Neutrophils # Seg Neutrophils # Man Lymphocytes # (Manual) Monocytes # (Manual) Eosinophils # (Manual) PT INR Fibrinogen dRVVT Confirm Interp Factor V Activity POC ABG pH POC ABG pCO2 POC ABG pO2 Sodium Potassium Chloride Carbon Dioxide 10 L BUN 103 H Creatinine 4.3 H Glucose 163 H POC Glucose 173 H 167 H Lactic Acid Calcium 6.5 L Phosphorus Magnesium Direct Bilirubin ALT Alkaline Phosphatase Troponin T C-Reactive Protein Total Protein Albumin Triglycerides Cholesterol LDL Cholesterol Direct HDL Cholesterol Urine WBC (Auto) Urine Creatinine Urine Total Protein Vancomycin Trough Rheumatoid Factor Complement C4 Miscellaneous Test Crossmatch 09/24/16 09/24/16 09/24/16 20:15 21:02 23:48 WBC RBC Hgb Hct MCV MCH MCHC RDW Plt Count Lymph % (Auto) [place] % (Auto) Lymph # [place] # Seg Neutrophils % Seg Neuts % (Manual) Lymphocytes % (Manual) Monocytes % (Manual) Eosinophils % (Manual) Basophils % (Manual) Nucleated RBC % Seg Neutrophils # Seg Neutrophils # Man Lymphocytes # (Manual) Monocytes # (Manual) Eosinophils # (Manual) PT INR Fibrinogen dRVVT Confirm Interp Factor V Activity POC ABG pH 7.288 L POC ABG pCO2 30.2 L 21.5 L POC ABG pO2 32 L 39 L Sodium Potassium Chloride Carbon Dioxide BUN Creatinine Glucose POC Glucose 109 H Lactic Acid Calcium Phosphorus Magnesium Direct Bilirubin ALT Alkaline Phosphatase Troponin T C-Reactive Protein Total Protein Albumin Triglycerides Cholesterol LDL Cholesterol Direct HDL Cholesterol Urine WBC (Auto) Urine Creatinine Urine Total Protein Vancomycin Trough Rheumatoid Factor Complement C4 Miscellaneous Test Crossmatch 09/25/16 09/25/16 09/25/16 04:20 04:20 04:20 WBC RBC 2.58 L Hgb 7.0 L Hct 21.0 L MCV MCH 27 L MCHC RDW 23.8 H Plt Count Lymph % (Auto) [place] % (Auto) Lymph # [place] # Seg Neutrophils % Seg Neuts % (Manual) Lymphocytes % (Manual) 12.0 L Monocytes % (Manual) Eosinophils % (Manual) 7.0 H Basophils % (Manual) 2.0 H Nucleated RBC % Seg Neutrophils # Seg Neutrophils # Man Lymphocytes # (Manual) 0.9 L Monocytes # (Manual) Eosinophils # (Manual) 0.5 H PT INR Fibrinogen dRVVT Confirm Interp Factor V Activity POC ABG pH POC ABG pCO2 POC ABG pO2 Sodium Potassium Chloride Carbon Dioxide 15 L BUN 72 H Creatinine 3.8 H Glucose POC Glucose Lactic Acid Calcium 6.0 L Phosphorus 4.60 H Magnesium 1.60 L Direct Bilirubin ALT Alkaline Phosphatase Troponin T C-Reactive Protein Total Protein Albumin Triglycerides Cholesterol LDL Cholesterol Direct HDL Cholesterol Urine WBC (Auto) Urine Creatinine Urine Total Protein Vancomycin Trough Rheumatoid Factor Complement C4 Miscellaneous Test Crossmatch 09/25/16 09/25/16 09/25/16 04:57 08:02 10:30 WBC RBC Hgb Hct MCV MCH MCHC RDW Plt Count Lymph % (Auto) [place] % (Auto) Lymph # [place] # Seg Neutrophils % Seg Neuts % (Manual) Lymphocytes % (Manual) Monocytes % (Manual) Eosinophils % (Manual) Basophils % (Manual) Nucleated RBC % Seg Neutrophils # Seg Neutrophils # Man Lymphocytes # (Manual) Monocytes # (Manual) Eosinophils # (Manual) PT INR Fibrinogen dRVVT Confirm Interp Factor V Activity POC ABG pH POC ABG pCO2 24.7 L POC ABG pO2 152 H Sodium Potassium Chloride Carbon Dioxide BUN Creatinine Glucose POC Glucose 113 H Lactic Acid Calcium Phosphorus Magnesium Direct Bilirubin ALT Alkaline Phosphatase Troponin T C-Reactive Protein Total Protein Albumin Triglycerides Cholesterol LDL Cholesterol Direct HDL Cholesterol Urine WBC (Auto) Urine Creatinine Urine Total Protein Vancomycin Trough Rheumatoid Factor Complement C4 Miscellaneous Test Crossmatch See Detail 09/25/16 09/25/16 09/25/16 12:05 17:44 23:47 WBC RBC Hgb Hct MCV MCH MCHC RDW Plt Count Lymph % (Auto) [place] % (Auto) Lymph # [place] # Seg Neutrophils % Seg Neuts % (Manual) Lymphocytes % (Manual) Monocytes % (Manual) Eosinophils % (Manual) Basophils % (Manual) Nucleated RBC % Seg Neutrophils # Seg Neutrophils # Man Lymphocytes # (Manual) Monocytes # (Manual) Eosinophils # (Manual) PT INR Fibrinogen dRVVT Confirm Interp Factor V Activity POC ABG pH POC ABG pCO2 POC ABG pO2 Sodium Potassium Chloride Carbon Dioxide BUN Creatinine Glucose POC Glucose 117 H 119 H 150 H Lactic Acid Calcium Phosphorus Magnesium Direct Bilirubin ALT Alkaline Phosphatase Troponin T C-Reactive Protein Total Protein Albumin Triglycerides Cholesterol LDL Cholesterol Direct HDL Cholesterol Urine WBC (Auto) Urine Creatinine Urine Total Protein Vancomycin Trough Rheumatoid Factor Complement C4 Miscellaneous Test Crossmatch 09/26/16 09/26/16 09/26/16 04:25 04:25 04:25 WBC RBC 2.65 L Hgb 7.4 L Hct 21.6 L MCV MCH MCHC RDW 22.5 H Plt Count Lymph % (Auto) [place] % (Auto) Lymph # [place] # Seg Neutrophils % Seg Neuts % (Manual) Lymphocytes % (Manual) 6.0 L Monocytes % (Manual) Eosinophils % (Manual) 11.0 H Basophils % (Manual) Nucleated RBC % Seg Neutrophils # Seg Neutrophils # Man Lymphocytes # (Manual) 0.4 L Monocytes # (Manual) Eosinophils # (Manual) 0.6 H PT INR Fibrinogen dRVVT Confirm Interp Factor V Activity POC ABG pH POC ABG pCO2 POC ABG pO2 Sodium Potassium Chloride 97.0 L Carbon Dioxide 19 L BUN 43 H Creatinine 2.6 H Glucose 130 H POC Glucose Lactic Acid 4.40 H* Calcium 6.7 L Phosphorus Magnesium Direct Bilirubin ALT Alkaline Phosphatase Troponin T C-Reactive Protein Total Protein Albumin Triglycerides Cholesterol LDL Cholesterol Direct HDL Cholesterol Urine WBC (Auto) Urine Creatinine Urine Total Protein Vancomycin Trough Rheumatoid Factor Complement C4 Miscellaneous Test Crossmatch 09/26/16 09/26/16 09/26/16 05:20 11:44 12:12 WBC RBC Hgb Hct MCV MCH MCHC RDW Plt Count Lymph % (Auto) [place] % (Auto) Lymph # [place] # Seg Neutrophils % Seg Neuts % (Manual) Lymphocytes % (Manual) Monocytes % (Manual) Eosinophils % (Manual) Basophils % (Manual) Nucleated RBC % Seg Neutrophils # Seg Neutrophils # Man Lymphocytes # (Manual) Monocytes # (Manual) Eosinophils # (Manual) PT INR Fibrinogen dRVVT Confirm Interp Factor V Activity POC ABG pH POC ABG pCO2 27.0 L POC ABG pO2 69 L Sodium Potassium Chloride Carbon Dioxide BUN Creatinine Glucose POC Glucose 121 H 128 H Lactic Acid Calcium Phosphorus Magnesium Direct Bilirubin ALT Alkaline Phosphatase Troponin T C-Reactive Protein Total Protein Albumin Triglycerides Cholesterol LDL Cholesterol Direct HDL Cholesterol Urine WBC (Auto) Urine Creatinine Urine Total Protein Vancomycin Trough Rheumatoid Factor Complement C4 Miscellaneous Test Crossmatch 09/26/16 09/26/16 09/27/16 18:31 23:40 08:20 WBC RBC Hgb Hct MCV MCH MCHC RDW Plt Count Lymph % (Auto) [place] % (Auto) Lymph # [place] # Seg Neutrophils % Seg Neuts % (Manual) Lymphocytes % (Manual) Monocytes % (Manual) Eosinophils % (Manual) Basophils % (Manual) Nucleated RBC % Seg Neutrophils # Seg Neutrophils # Man Lymphocytes # (Manual) Monocytes # (Manual) Eosinophils # (Manual) PT INR Fibrinogen dRVVT Confirm Interp Factor V Activity POC ABG pH POC ABG pCO2 POC ABG pO2 Sodium Potassium Chloride Carbon Dioxide BUN Creatinine Glucose POC Glucose 120 H 133 H Lactic Acid 4.10 H* Calcium Phosphorus Magnesium Direct Bilirubin ALT Alkaline Phosphatase Troponin T C-Reactive Protein Total Protein Albumin Triglycerides Cholesterol LDL Cholesterol Direct HDL Cholesterol Urine WBC (Auto) Urine Creatinine Urine Total Protein Vancomycin Trough Rheumatoid Factor Complement C4 Miscellaneous Test Crossmatch 09/27/16 09/27/16 09/27/16 11:23 15:00 18:15 WBC RBC Hgb Hct MCV MCH MCHC RDW Plt Count Lymph % (Auto) [place] % (Auto) Lymph # [place] # Seg Neutrophils % Seg Neuts % (Manual) Lymphocytes % (Manual) Monocytes % (Manual) Eosinophils % (Manual) Basophils % (Manual) Nucleated RBC % Seg Neutrophils # Seg Neutrophils # Man Lymphocytes # (Manual) Monocytes # (Manual) Eosinophils # (Manual) PT INR Fibrinogen dRVVT Confirm Interp Factor V Activity POC ABG pH 7.459 H POC ABG pCO2 27.1 L POC ABG pO2 140 H Sodium Potassium Chloride Carbon Dioxide BUN Creatinine Glucose POC Glucose 114 H 127 H Lactic Acid Calcium Phosphorus Magnesium Direct Bilirubin ALT Alkaline Phosphatase Troponin T C-Reactive Protein Total Protein Albumin Triglycerides Cholesterol LDL Cholesterol Direct HDL Cholesterol Urine WBC (Auto) Urine Creatinine Urine Total Protein Vancomycin Trough Rheumatoid Factor Complement C4 Miscellaneous Test Crossmatch 09/27/16 09/27/16 09/28/16 Unknown Unknown 03:45 WBC RBC 2.49 L Hgb 6.8 L Hct 20.7 L MCV MCH 27 L MCHC RDW 22.1 H Plt Count Lymph % (Auto) [place] % (Auto) Lymph # [place] # Seg Neutrophils % Seg Neuts % (Manual) 32.0 L Lymphocytes % (Manual) 12.0 L Monocytes % (Manual) 11.0 H Eosinophils % (Manual) 10.0 H Basophils % (Manual) Nucleated RBC % Seg Neutrophils # Seg Neutrophils # Man Lymphocytes # (Manual) 1.0 L Monocytes # (Manual) 0.9 H Eosinophils # (Manual) 0.8 H PT INR Fibrinogen dRVVT Confirm Interp Factor V Activity POC ABG pH POC ABG pCO2 POC ABG pO2 Sodium 135 L 135 L Potassium 3.5 L Chloride 93.6 L 94.4 L Carbon Dioxide 17 L 21 L BUN 45 H 28 H Creatinine 3.3 H 2.5 H Glucose 106 H POC Glucose Lactic Acid Calcium 7.3 L 7.1 L Phosphorus Magnesium Direct Bilirubin ALT Alkaline Phosphatase Troponin T C-Reactive Protein Total Protein Albumin Triglycerides Cholesterol LDL Cholesterol Direct HDL Cholesterol Urine WBC (Auto) Urine Creatinine Urine Total Protein Vancomycin Trough Rheumatoid Factor Complement C4 Miscellaneous Test Crossmatch 09/28/16 09/28/16 09/28/16 03:45 07:25 11:58 WBC 13.3 H RBC 3.01 L Hgb 8.4 L Hct 25.0 L MCV MCH MCHC RDW 20.5 H Plt Count 128 L Lymph % (Auto) [place] % (Auto) Lymph # [place] # Seg Neutrophils % Seg Neuts % (Manual) Lymphocytes % (Manual) 7.0 L Monocytes % (Manual) Eosinophils % (Manual) 6.0 H Basophils % (Manual) Nucleated RBC % Seg Neutrophils # Seg Neutrophils # Man Lymphocytes # (Manual) 0.9 L Monocytes # (Manual) Eosinophils # (Manual) 0.8 H PT INR Fibrinogen dRVVT Confirm Interp Factor V Activity POC ABG pH POC ABG pCO2 POC ABG pO2 Sodium Potassium Chloride Carbon Dioxide BUN Creatinine Glucose POC Glucose 121 H Lactic Acid 4.50 H* Calcium Phosphorus Magnesium Direct Bilirubin ALT Alkaline Phosphatase Troponin T C-Reactive Protein Total Protein Albumin Triglycerides Cholesterol LDL Cholesterol Direct HDL Cholesterol Urine WBC (Auto) Urine Creatinine Urine Total Protein Vancomycin Trough Rheumatoid Factor Complement C4 Miscellaneous Test Crossmatch 09/29/16 09/29/16 09/29/16 06:45 06:45 06:45 WBC 14.9 H RBC 2.74 L Hgb 7.6 L Hct 23.2 L MCV MCH MCHC RDW 20.5 H Plt Count 81 L Lymph % (Auto) [place] % (Auto) Lymph # [place] # Seg Neutrophils % Seg Neuts % (Manual) 81.0 H Lymphocytes % (Manual) 4.0 L Monocytes % (Manual) Eosinophils % (Manual) Basophils % (Manual) Nucleated RBC % Seg Neutrophils # Seg Neutrophils # Man 12.1 H Lymphocytes # (Manual) 0.6 L Monocytes # (Manual) Eosinophils # (Manual) PT INR Fibrinogen dRVVT Confirm Interp Factor V Activity POC ABG pH POC ABG pCO2 POC ABG pO2 Sodium 133 L Potassium 3.4 L Chloride 92.5 L Carbon Dioxide 21 L BUN 33 H Creatinine 3.0 H Glucose POC Glucose Lactic Acid Calcium 6.6 L Phosphorus Magnesium 1.40 L Direct Bilirubin 0.9 H ALT Alkaline Phosphatase Troponin T C-Reactive Protein Total Protein 4.3 L Albumin 1.3 L Triglycerides Cholesterol LDL Cholesterol Direct HDL Cholesterol Urine WBC (Auto) Urine Creatinine Urine Total Protein Vancomycin Trough Rheumatoid Factor Complement C4 Miscellaneous Test Crossmatch 09/29/16 09/29/16 09/30/16 17:52 20:12 00:07 WBC RBC Hgb Hct MCV MCH MCHC RDW Plt Count Lymph % (Auto) [place] % (Auto) Lymph # [place] # Seg Neutrophils % Seg Neuts % (Manual) Lymphocytes % (Manual) Monocytes % (Manual) Eosinophils % (Manual) Basophils % (Manual) Nucleated RBC % Seg Neutrophils # Seg Neutrophils # Man Lymphocytes # (Manual) Monocytes # (Manual) Eosinophils # (Manual) PT INR Fibrinogen dRVVT Confirm Interp Factor V Activity POC ABG pH POC ABG pCO2 POC ABG pO2 Sodium Potassium Chloride Carbon Dioxide BUN Creatinine Glucose POC Glucose 50 L 51 L Lactic Acid Calcium Phosphorus Magnesium Direct Bilirubin ALT Alkaline Phosphatase Troponin T 0.204 H* C-Reactive Protein Total Protein Albumin Triglycerides Cholesterol 31 L LDL Cholesterol Direct 4 L HDL Cholesterol 3 L Urine WBC (Auto) Urine Creatinine Urine Total Protein Vancomycin Trough Rheumatoid Factor Complement C4 Miscellaneous Test Crossmatch 09/30/16 09/30/16 09/30/16 01:30 05:15 06:10 WBC RBC Hgb Hct MCV MCH MCHC RDW Plt Count Lymph % (Auto) [place] % (Auto) Lymph # [place] # Seg Neutrophils % Seg Neuts % (Manual) Lymphocytes % (Manual) Monocytes % (Manual) Eosinophils % (Manual) Basophils % (Manual) Nucleated RBC % Seg Neutrophils # Seg Neutrophils # Man Lymphocytes # (Manual) Monocytes # (Manual) Eosinophils # (Manual) PT INR Fibrinogen dRVVT Confirm Interp Factor V Activity POC ABG pH POC ABG pCO2 POC ABG pO2 Sodium 133 L Potassium 3.2 L Chloride 93.2 L Carbon Dioxide 19 L BUN 36 H Creatinine 3.2 H Glucose 104 H POC Glucose 167 H 146 H Lactic Acid Calcium 6.4 L Phosphorus Magnesium 1.60 L Direct Bilirubin ALT Alkaline Phosphatase Troponin T C-Reactive Protein Total Protein Albumin Triglycerides Cholesterol LDL Cholesterol Direct HDL Cholesterol Urine WBC (Auto) Urine Creatinine Urine Total Protein Vancomycin Trough Rheumatoid Factor Complement C4 Miscellaneous Test Crossmatch 09/30/16 09/30/16 09/30/16 11:26 13:39 18:38 WBC RBC Hgb Hct MCV MCH MCHC RDW Plt Count Lymph % (Auto) [place] % (Auto) Lymph # [place] # Seg Neutrophils % Seg Neuts % (Manual) Lymphocytes % (Manual) Monocytes % (Manual) Eosinophils % (Manual) Basophils % (Manual) Nucleated RBC % Seg Neutrophils # Seg Neutrophils # Man Lymphocytes # (Manual) Monocytes # (Manual) Eosinophils # (Manual) PT INR Fibrinogen dRVVT Confirm Interp Factor V Activity POC ABG pH 7.479 H POC ABG pCO2 29.8 L POC ABG pO2 117 H Sodium Potassium Chloride Carbon Dioxide BUN Creatinine Glucose POC Glucose 140 H 122 H Lactic Acid Calcium Phosphorus Magnesium Direct Bilirubin ALT Alkaline Phosphatase Troponin T C-Reactive Protein Total Protein Albumin Triglycerides Cholesterol LDL Cholesterol Direct HDL Cholesterol Urine WBC (Auto) Urine Creatinine Urine Total Protein Vancomycin Trough Rheumatoid Factor Complement C4 Miscellaneous Test Crossmatch 10/01/16 10/01/16 10/01/16 06:00 06:00 12:37 WBC 12.6 H RBC 2.75 L Hgb 7.3 L Hct 23.3 L MCV MCH 27 L MCHC RDW 20.6 H Plt Count 72 L Lymph % (Auto) [place] % (Auto) Lymph # [place] # Seg Neutrophils % Seg Neuts % (Manual) 31.0 L Lymphocytes % (Manual) 8.0 L Monocytes % (Manual) Eosinophils % (Manual) Basophils % (Manual) Nucleated RBC % 3.0 H Seg Neutrophils # Seg Neutrophils # Man Lymphocytes # (Manual) 1.0 L Monocytes # (Manual) Eosinophils # (Manual) PT INR Fibrinogen dRVVT Confirm Interp Factor V Activity POC ABG pH POC ABG pCO2 POC ABG pO2 Sodium 127 L Potassium Chloride 86.8 L Carbon Dioxide 20 L BUN 42 H Creatinine 3.5 H Glucose POC Glucose 65 L Lactic Acid Calcium 7.0 L Phosphorus Magnesium Direct Bilirubin ALT Alkaline Phosphatase Troponin T C-Reactive Protein Total Protein Albumin Triglycerides Cholesterol LDL Cholesterol Direct HDL Cholesterol Urine WBC (Auto) Urine Creatinine Urine Total Protein Vancomycin Trough Rheumatoid Factor Complement C4 Miscellaneous Test Crossmatch 10/01/16 10/01/16 10/02/16 17:39 23:32 00:59 WBC RBC Hgb Hct MCV MCH MCHC RDW Plt Count Lymph % (Auto) [place] % (Auto) Lymph # [place] # Seg Neutrophils % Seg Neuts % (Manual) Lymphocytes % (Manual) Monocytes % (Manual) Eosinophils % (Manual) Basophils % (Manual) Nucleated RBC % Seg Neutrophils # Seg Neutrophils # Man Lymphocytes # (Manual) Monocytes # (Manual) Eosinophils # (Manual) PT INR Fibrinogen dRVVT Confirm Interp Factor V Activity POC ABG pH POC ABG pCO2 POC ABG pO2 Sodium Potassium Chloride Carbon Dioxide BUN Creatinine Glucose POC Glucose 107 H 52 L 145 H Lactic Acid Calcium Phosphorus Magnesium Direct Bilirubin ALT Alkaline Phosphatase Troponin T C-Reactive Protein Total Protein Albumin Triglycerides Cholesterol LDL Cholesterol Direct HDL Cholesterol Urine WBC (Auto) Urine Creatinine Urine Total Protein Vancomycin Trough Rheumatoid Factor Complement C4 Miscellaneous Test Crossmatch 10/02/16 10/02/16 10/02/16 10:30 10:50 10:50 WBC 14.7 H RBC 2.76 L Hgb 7.4 L Hct 23.6 L MCV MCH 27 L MCHC RDW 20.2 H Plt Count 79 L Lymph % (Auto) [place] % (Auto) Lymph # [place] # Seg Neutrophils % Seg Neuts % (Manual) 86.0 H Lymphocytes % (Manual) 6.0 L Monocytes % (Manual) Eosinophils % (Manual) Basophils % (Manual) Nucleated RBC % Seg Neutrophils # Seg Neutrophils # Man 12.6 H Lymphocytes # (Manual) 0.9 L Monocytes # (Manual) Eosinophils # (Manual) PT INR Fibrinogen dRVVT Confirm Interp Factor V Activity POC ABG pH 7.486 H POC ABG pCO2 30.1 L POC ABG pO2 108 H Sodium 131 L Potassium 3.4 L Chloride 89.9 L Carbon Dioxide BUN 26 H Creatinine 2.6 H Glucose POC Glucose Lactic Acid Calcium 7.0 L Phosphorus Magnesium Direct Bilirubin ALT Alkaline Phosphatase Troponin T C-Reactive Protein Total Protein Albumin Triglycerides Cholesterol LDL Cholesterol Direct HDL Cholesterol Urine WBC (Auto) Urine Creatinine Urine Total Protein Vancomycin Trough Rheumatoid Factor Complement C4 Miscellaneous Test Crossmatch 10/02/16 10/03/16 10/03/16 23:45 00:45 05:10 WBC 12.9 H RBC 2.77 L Hgb 7.6 L Hct 23.7 L MCV MCH 27 L MCHC RDW 19.7 H Plt Count 89 L Lymph % (Auto) [place] % (Auto) Lymph # [place] # Seg Neutrophils % Seg Neuts % (Manual) Lymphocytes % (Manual) 8.0 L Monocytes % (Manual) Eosinophils % (Manual) Basophils % (Manual) Nucleated RBC % Seg Neutrophils # 11.9 H Seg Neutrophils # Man Lymphocytes # (Manual) 1.0 L Monocytes # (Manual) Eosinophils # (Manual) PT INR Fibrinogen dRVVT Confirm Interp Factor V Activity POC ABG pH POC ABG pCO2 POC ABG pO2 Sodium Potassium Chloride Carbon Dioxide BUN Creatinine Glucose POC Glucose 55 L 199 H Lactic Acid Calcium Phosphorus Magnesium Direct Bilirubin ALT Alkaline Phosphatase Troponin T C-Reactive Protein Total Protein Albumin Triglycerides Cholesterol LDL Cholesterol Direct HDL Cholesterol Urine WBC (Auto) Urine Creatinine Urine Total Protein Vancomycin Trough Rheumatoid Factor Complement C4 Miscellaneous Test Crossmatch 10/03/16 10/03/16 10/03/16 05:10 12:14 13:18 WBC RBC Hgb Hct MCV MCH MCHC RDW Plt Count Lymph % (Auto) [place] % (Auto) Lymph # [place] # Seg Neutrophils % Seg Neuts % (Manual) Lymphocytes % (Manual) Monocytes % (Manual) Eosinophils % (Manual) Basophils % (Manual) Nucleated RBC % Seg Neutrophils # Seg Neutrophils # Man Lymphocytes # (Manual) Monocytes # (Manual) Eosinophils # (Manual) PT INR Fibrinogen dRVVT Confirm Interp Factor V Activity POC ABG pH POC ABG pCO2 POC ABG pO2 Sodium 129 L Potassium 3.3 L Chloride 88.8 L Carbon Dioxide 20 L BUN 29 H Creatinine 2.8 H Glucose POC Glucose 68 L 127 H Lactic Acid Calcium 7.2 L Phosphorus Magnesium Direct Bilirubin ALT Alkaline Phosphatase Troponin T C-Reactive Protein Total Protein Albumin Triglycerides Cholesterol LDL Cholesterol Direct HDL Cholesterol Urine WBC (Auto) Urine Creatinine Urine Total Protein Vancomycin Trough Rheumatoid Factor Complement C4 Miscellaneous Test Crossmatch 10/03/16 10/03/16 10/03/16 14:42 18:21 19:09 WBC RBC Hgb Hct MCV MCH MCHC RDW Plt Count Lymph % (Auto) [place] % (Auto) Lymph # [place] # Seg Neutrophils % Seg Neuts % (Manual) Lymphocytes % (Manual) Monocytes % (Manual) Eosinophils % (Manual) Basophils % (Manual) Nucleated RBC % Seg Neutrophils # Seg Neutrophils # Man Lymphocytes # (Manual) Monocytes # (Manual) Eosinophils # (Manual) PT INR Fibrinogen dRVVT Confirm Interp Factor V Activity POC ABG pH 7.499 H POC ABG pCO2 28.4 L POC ABG pO2 44 L Sodium Potassium Chloride Carbon Dioxide BUN Creatinine Glucose POC Glucose 64 L 205 H Lactic Acid Calcium Phosphorus Magnesium Direct Bilirubin ALT Alkaline Phosphatase Troponin T C-Reactive Protein Total Protein Albumin Triglycerides Cholesterol LDL Cholesterol Direct HDL Cholesterol Urine WBC (Auto) Urine Creatinine Urine Total Protein Vancomycin Trough Rheumatoid Factor Complement C4 Miscellaneous Test Crossmatch 10/03/16 10/04/16 10/04/16 23:33 04:18 06:30 WBC RBC 2.54 L Hgb 7.1 L Hct 21.7 L MCV MCH MCHC RDW 19.5 H Plt Count 76 L Lymph % (Auto) [place] % (Auto) Lymph # [place] # Seg Neutrophils % Seg Neuts % (Manual) 88.0 H Lymphocytes % (Manual) 6.0 L Monocytes % (Manual) Eosinophils % (Manual) Basophils % (Manual) Nucleated RBC % Seg Neutrophils # Seg Neutrophils # Man 8.8 H Lymphocytes # (Manual) 0.6 L Monocytes # (Manual) Eosinophils # (Manual) PT INR Fibrinogen dRVVT Confirm Interp Factor V Activity POC ABG pH 7.461 H POC ABG pCO2 33.6 L POC ABG pO2 211 H Sodium Potassium Chloride Carbon Dioxide BUN Creatinine Glucose POC Glucose 136 H Lactic Acid Calcium Phosphorus Magnesium Direct Bilirubin ALT Alkaline Phosphatase Troponin T C-Reactive Protein Total Protein Albumin Triglycerides Cholesterol LDL Cholesterol Direct HDL Cholesterol Urine WBC (Auto) Urine Creatinine Urine Total Protein Vancomycin Trough Rheumatoid Factor Complement C4 Miscellaneous Test Crossmatch 10/04/16 10/04/16 10/04/16 06:30 11:45 17:54 WBC RBC Hgb Hct MCV MCH MCHC RDW Plt Count Lymph % (Auto) [place] % (Auto) Lymph # [place] # Seg Neutrophils % Seg Neuts % (Manual) Lymphocytes % (Manual) Monocytes % (Manual) Eosinophils % (Manual) Basophils % (Manual) Nucleated RBC % Seg Neutrophils # Seg Neutrophils # Man Lymphocytes # (Manual) Monocytes # (Manual) Eosinophils # (Manual) PT INR Fibrinogen dRVVT Confirm Interp Factor V Activity POC ABG pH POC ABG pCO2 POC ABG pO2 Sodium 128 L Potassium Chloride 87.4 L Carbon Dioxide 20 L BUN 34 H Creatinine 2.9 H Glucose 127 H POC Glucose 158 H 160 H Lactic Acid Calcium 7.4 L Phosphorus Magnesium Direct Bilirubin ALT Alkaline Phosphatase Troponin T C-Reactive Protein Total Protein Albumin Triglycerides Cholesterol LDL Cholesterol Direct HDL Cholesterol Urine WBC (Auto) Urine Creatinine Urine Total Protein Vancomycin Trough Rheumatoid Factor Complement C4 Miscellaneous Test Crossmatch 10/04/16 10/05/16 10/05/16 23:25 04:30 05:00 WBC RBC 2.64 L Hgb 7.5 L Hct 22.6 L MCV MCH MCHC RDW 19.3 H Plt Count 80 L Lymph % (Auto) [place] % (Auto) Lymph # [place] # Seg Neutrophils % Seg Neuts % (Manual) Lymphocytes % (Manual) 12.0 L Monocytes % (Manual) Eosinophils % (Manual) Basophils % (Manual) Nucleated RBC % Seg Neutrophils # Seg Neutrophils # Man Lymphocytes # (Manual) Monocytes # (Manual) Eosinophils # (Manual) PT INR Fibrinogen dRVVT Confirm Interp Factor V Activity POC ABG pH 7.475 H POC ABG pCO2 33.3 L POC ABG pO2 140 H Sodium Potassium Chloride Carbon Dioxide BUN Creatinine Glucose POC Glucose 141 H Lactic Acid Calcium Phosphorus Magnesium Direct Bilirubin ALT Alkaline Phosphatase Troponin T C-Reactive Protein Total Protein Albumin Triglycerides Cholesterol LDL Cholesterol Direct HDL Cholesterol Urine WBC (Auto) Urine Creatinine Urine Total Protein Vancomycin Trough Rheumatoid Factor Complement C4 Miscellaneous Test Crossmatch 10/05/16 10/05/16 10/05/16 05:00 05:09 12:58 WBC RBC Hgb Hct MCV MCH MCHC RDW Plt Count Lymph % (Auto) [place] % (Auto) Lymph # [place] # Seg Neutrophils % Seg Neuts % (Manual) Lymphocytes % (Manual) Monocytes % (Manual) Eosinophils % (Manual) Basophils % (Manual) Nucleated RBC % Seg Neutrophils # Seg Neutrophils # Man Lymphocytes # (Manual) Monocytes # (Manual) Eosinophils # (Manual) PT INR Fibrinogen dRVVT Confirm Interp Factor V Activity POC ABG pH POC ABG pCO2 POC ABG pO2 Sodium 131 L Potassium Chloride 94.0 L Carbon Dioxide 20 L BUN 22 H Creatinine 2.0 H Glucose 123 H POC Glucose 166 H 179 H Lactic Acid Calcium 7.7 L Phosphorus 2.20 L D Magnesium Direct Bilirubin ALT Alkaline Phosphatase Troponin T C-Reactive Protein Total Protein Albumin Triglycerides Cholesterol LDL Cholesterol Direct HDL Cholesterol Urine WBC (Auto) Urine Creatinine Urine Total Protein Vancomycin Trough Rheumatoid Factor Complement C4 Miscellaneous Test Crossmatch 10/05/16 10/05/16 10/05/16 15:50 18:53 23:12 WBC RBC Hgb Hct MCV MCH MCHC RDW Plt Count Lymph % (Auto) [place] % (Auto) Lymph # [place] # Seg Neutrophils % Seg Neuts % (Manual) Lymphocytes % (Manual) Monocytes % (Manual) Eosinophils % (Manual) Basophils % (Manual) Nucleated RBC % Seg Neutrophils # Seg Neutrophils # Man Lymphocytes # (Manual) Monocytes # (Manual) Eosinophils # (Manual) PT INR Fibrinogen dRVVT Confirm Interp Factor V Activity POC ABG pH POC ABG pCO2 POC ABG pO2 Sodium Potassium Chloride Carbon Dioxide BUN Creatinine Glucose POC Glucose 150 H 164 H Lactic Acid Calcium Phosphorus Magnesium Direct Bilirubin ALT Alkaline Phosphatase Troponin T C-Reactive Protein Total Protein Albumin Triglycerides Cholesterol LDL Cholesterol Direct HDL Cholesterol Urine WBC (Auto) Urine Creatinine Urine Total Protein Vancomycin Trough Rheumatoid Factor Complement C4 Miscellaneous Test Crossmatch See Detail 10/06/16 10/06/16 10/06/16 03:50 03:50 04:53 WBC RBC 3.00 L Hgb 8.6 L Hct 25.8 L MCV MCH MCHC RDW 17.9 H Plt Count 65 L Lymph % (Auto) [place] % (Auto) Lymph # [place] # Seg Neutrophils % Seg Neuts % (Manual) 30.0 L Lymphocytes % (Manual) 5.0 L Monocytes % (Manual) Eosinophils % (Manual) Basophils % (Manual) Nucleated RBC % Seg Neutrophils # Seg Neutrophils # Man Lymphocytes # (Manual) 0.4 L Monocytes # (Manual) Eosinophils # (Manual) PT INR Fibrinogen dRVVT Confirm Interp Factor V Activity POC ABG pH 7.310 L POC ABG pCO2 49.0 H POC ABG pO2 Sodium 133 L Potassium Chloride 95.9 L Carbon Dioxide BUN 26 H Creatinine 2.0 H Glucose 116 H POC Glucose Lactic Acid Calcium 7.8 L Phosphorus Magnesium Direct Bilirubin ALT Alkaline Phosphatase Troponin T C-Reactive Protein Total Protein Albumin Triglycerides Cholesterol LDL Cholesterol Direct HDL Cholesterol Urine WBC (Auto) Urine Creatinine Urine Total Protein Vancomycin Trough Rheumatoid Factor Complement C4 Miscellaneous Test Crossmatch 10/06/16 10/06/16 10/06/16 05:23 11:52 18:34 WBC RBC Hgb Hct MCV MCH MCHC RDW Plt Count Lymph % (Auto) [place] % (Auto) Lymph # [place] # Seg Neutrophils % Seg Neuts % (Manual) Lymphocytes % (Manual) Monocytes % (Manual) Eosinophils % (Manual) Basophils % (Manual) Nucleated RBC % Seg Neutrophils # Seg Neutrophils # Man Lymphocytes # (Manual) Monocytes # (Manual) Eosinophils # (Manual) PT INR Fibrinogen dRVVT Confirm Interp Factor V Activity POC ABG pH POC ABG pCO2 POC ABG pO2 Sodium Potassium Chloride Carbon Dioxide BUN Creatinine Glucose POC Glucose 126 H 116 H 129 H Lactic Acid Calcium Phosphorus Magnesium Direct Bilirubin ALT Alkaline Phosphatase Troponin T C-Reactive Protein Total Protein Albumin Triglycerides Cholesterol LDL Cholesterol Direct HDL Cholesterol Urine WBC (Auto) Urine Creatinine Urine Total Protein Vancomycin Trough Rheumatoid Factor Complement C4 Miscellaneous Test Crossmatch 10/07/16 10/07/16 10/07/16 03:45 05:00 10:00 WBC 17.0 H RBC 2.68 L Hgb 7.3 L Hct 25.3 L MCV MCH 27 L MCHC 29 L RDW 19.6 H Plt Count 74 L Lymph % (Auto) [place] % (Auto) Lymph # [place] # Seg Neutrophils % Seg Neuts % (Manual) Lymphocytes % (Manual) 12.0 L Monocytes % (Manual) Eosinophils % (Manual) Basophils % (Manual) Nucleated RBC % 4.0 H Seg Neutrophils # Seg Neutrophils # Man 10.7 H Lymphocytes # (Manual) Monocytes # (Manual) Eosinophils # (Manual) PT INR Fibrinogen dRVVT Confirm Interp Factor V Activity POC ABG pH POC ABG pCO2 POC ABG pO2 Sodium 130 L Potassium 3.2 L Chloride 93.9 L Carbon Dioxide 20 L BUN 44 H Creatinine 2.7 H Glucose 129 H POC Glucose Lactic Acid Calcium 7.4 L Phosphorus Magnesium Direct Bilirubin ALT 6 L Alkaline Phosphatase 195 H Troponin T C-Reactive Protein Total Protein 4.9 L Albumin 1.0 L Triglycerides Cholesterol LDL Cholesterol Direct HDL Cholesterol Urine WBC (Auto) Urine Creatinine Urine Total Protein Vancomycin Trough Rheumatoid Factor Complement C4 Miscellaneous Test Flexitest 1 H Crossmatch 10/07/16 10/07/16 10/07/16 10:00 11:24 18:10 WBC RBC Hgb Hct MCV MCH MCHC RDW Plt Count Lymph % (Auto) [place] % (Auto) Lymph # [place] # Seg Neutrophils % Seg Neuts % (Manual) Lymphocytes % (Manual) Monocytes % (Manual) Eosinophils % (Manual) Basophils % (Manual) Nucleated RBC % Seg Neutrophils # Seg Neutrophils # Man Lymphocytes # (Manual) Monocytes # (Manual) Eosinophils # (Manual) PT INR Fibrinogen dRVVT Confirm Interp Factor V Activity POC ABG pH POC ABG pCO2 POC ABG pO2 Sodium Potassium Chloride Carbon Dioxide BUN Creatinine Glucose POC Glucose 116 H 130 H Lactic Acid Calcium Phosphorus Magnesium Direct Bilirubin ALT Alkaline Phosphatase Troponin T C-Reactive Protein 19.40 H Total Protein Albumin Triglycerides Cholesterol LDL Cholesterol Direct HDL Cholesterol Urine WBC (Auto) Urine Creatinine Urine Total Protein Vancomycin Trough Rheumatoid Factor Complement C4 Miscellaneous Test Crossmatch 10/07/16 10/08/16 10/08/16 18:30 00:00 04:00 WBC RBC Hgb Hct MCV MCH MCHC RDW Plt Count Lymph % (Auto) [place] % (Auto) Lymph # [place] # Seg Neutrophils % Seg Neuts % (Manual) Lymphocytes % (Manual) Monocytes % (Manual) Eosinophils % (Manual) Basophils % (Manual) Nucleated RBC % Seg Neutrophils # Seg Neutrophils # Man Lymphocytes # (Manual) Monocytes # (Manual) Eosinophils # (Manual) PT INR Fibrinogen dRVVT Confirm Interp Factor V Activity POC ABG pH POC ABG pCO2 POC ABG pO2 Sodium 132 L Potassium 3.3 L Chloride 93.6 L Carbon Dioxide 17 L BUN 59 H Creatinine 2.7 H Glucose 121 H POC Glucose 122 H Lactic Acid Calcium 7.6 L Phosphorus Magnesium Direct Bilirubin ALT Alkaline Phosphatase Troponin T C-Reactive Protein Total Protein Albumin Triglycerides Cholesterol LDL Cholesterol Direct HDL Cholesterol Urine WBC (Auto) > 182.0 H Urine Creatinine Urine Total Protein Vancomycin Trough Rheumatoid Factor Complement C4 Miscellaneous Test Crossmatch 10/08/16 10/08/16 10/08/16 04:30 05:30 11:51 WBC RBC 5.15 H Hgb 14.4 H D Hct 44.5 H D MCV MCH MCHC RDW 19.5 H Plt Count 56 L Lymph % (Auto) [place] % (Auto) Lymph # [place] # Seg Neutrophils % Seg Neuts % (Manual) 24.0 L Lymphocytes % (Manual) 8.0 L Monocytes % (Manual) Eosinophils % (Manual) Basophils % (Manual) Nucleated RBC % 9.0 H Seg Neutrophils # Seg Neutrophils # Man Lymphocytes # (Manual) 0.7 L Monocytes # (Manual) Eosinophils # (Manual) PT INR Fibrinogen dRVVT Confirm Interp Factor V Activity POC ABG pH POC ABG pCO2 POC ABG pO2 Sodium Potassium Chloride Carbon Dioxide BUN Creatinine Glucose POC Glucose 125 H 150 H Lactic Acid Calcium Phosphorus Magnesium Direct Bilirubin ALT Alkaline Phosphatase Troponin T C-Reactive Protein Total Protein Albumin Triglycerides Cholesterol LDL Cholesterol Direct HDL Cholesterol Urine WBC (Auto) Urine Creatinine Urine Total Protein Vancomycin Trough Rheumatoid Factor Complement C4 Miscellaneous Test Crossmatch 10/08/16 10/08/16 10/08/16 12:49 17:07 19:30 WBC RBC Hgb 7.1 L D Hct 22.4 L D MCV MCH MCHC RDW Plt Count Lymph % (Auto) [place] % (Auto) Lymph # [place] # Seg Neutrophils % Seg Neuts % (Manual) Lymphocytes % (Manual) Monocytes % (Manual) Eosinophils % (Manual) Basophils % (Manual) Nucleated RBC % Seg Neutrophils # Seg Neutrophils # Man Lymphocytes # (Manual) Monocytes # (Manual) Eosinophils # (Manual) PT INR Fibrinogen dRVVT Confirm Interp Factor V Activity POC ABG pH POC ABG pCO2 28.2 L POC ABG pO2 111 H Sodium Potassium Chloride Carbon Dioxide BUN Creatinine Glucose POC Glucose 145 H Lactic Acid Calcium Phosphorus Magnesium Direct Bilirubin ALT Alkaline Phosphatase Troponin T C-Reactive Protein Total Protein Albumin Triglycerides Cholesterol LDL Cholesterol Direct HDL Cholesterol Urine WBC (Auto) Urine Creatinine Urine Total Protein Vancomycin Trough Rheumatoid Factor Complement C4 Miscellaneous Test Crossmatch 10/08/16 10/09/16 10/09/16 19:30 03:45 03:45 WBC 12.6 H RBC 2.36 L Hgb 6.7 L Hct 21.1 L MCV MCH MCHC RDW 19.5 H Plt Count 75 L Lymph % (Auto) [place] % (Auto) Lymph # [place] # Seg Neutrophils % Seg Neuts % (Manual) Lymphocytes % (Manual) Monocytes % (Manual) 10.0 H Eosinophils % (Manual) Basophils % (Manual) Nucleated RBC % 3.0 H Seg Neutrophils # Seg Neutrophils # Man Lymphocytes # (Manual) Monocytes # (Manual) 1.3 H Eosinophils # (Manual) PT 18.0 H INR 1.41 H Fibrinogen dRVVT Confirm Interp Factor V Activity POC ABG pH POC ABG pCO2 POC ABG pO2 Sodium 135 L Potassium Chloride Carbon Dioxide 17 L BUN 81 H Creatinine 3.2 H Glucose 109 H POC Glucose Lactic Acid Calcium 7.4 L Phosphorus 4.60 H D Magnesium Direct Bilirubin ALT Alkaline Phosphatase Troponin T C-Reactive Protein Total Protein Albumin Triglycerides Cholesterol LDL Cholesterol Direct HDL Cholesterol Urine WBC (Auto) Urine Creatinine Urine Total Protein Vancomycin Trough Rheumatoid Factor Complement C4 Miscellaneous Test Crossmatch 10/09/16 10/09/16 10/09/16 03:45 05:14 07:20 WBC RBC Hgb Hct MCV MCH MCHC RDW Plt Count Lymph % (Auto) [place] % (Auto) Lymph # [place] # Seg Neutrophils % Seg Neuts % (Manual) Lymphocytes % (Manual) Monocytes % (Manual) Eosinophils % (Manual) Basophils % (Manual) Nucleated RBC % Seg Neutrophils # Seg Neutrophils # Man Lymphocytes # (Manual) Monocytes # (Manual) Eosinophils # (Manual) PT 19.0 H INR 1.51 H Fibrinogen dRVVT Confirm Interp Factor V Activity POC ABG pH POC ABG pCO2 POC ABG pO2 Sodium Potassium Chloride Carbon Dioxide BUN Creatinine Glucose POC Glucose 151 H Lactic Acid Calcium Phosphorus Magnesium Direct Bilirubin ALT Alkaline Phosphatase Troponin T C-Reactive Protein Total Protein Albumin Triglycerides Cholesterol LDL Cholesterol Direct HDL Cholesterol Urine WBC (Auto) Urine Creatinine Urine Total Protein Vancomycin Trough Rheumatoid Factor Complement C4 Miscellaneous Test Crossmatch See Detail 10/09/16 10/09/16 10/09/16 11:46 16:20 16:43 WBC RBC Hgb 7.2 L Hct 22.2 L MCV MCH MCHC RDW Plt Count Lymph % (Auto) [place] % (Auto) Lymph # [place] # Seg Neutrophils % Seg Neuts % (Manual) Lymphocytes % (Manual) Monocytes % (Manual) Eosinophils % (Manual) Basophils % (Manual) Nucleated RBC % Seg Neutrophils # Seg Neutrophils # Man Lymphocytes # (Manual) Monocytes # (Manual) Eosinophils # (Manual) PT INR Fibrinogen dRVVT Confirm Interp Factor V Activity POC ABG pH POC ABG pCO2 POC ABG pO2 Sodium Potassium Chloride Carbon Dioxide BUN Creatinine Glucose POC Glucose 133 H 141 H Lactic Acid Calcium Phosphorus Magnesium Direct Bilirubin ALT Alkaline Phosphatase Troponin T C-Reactive Protein Total Protein Albumin Triglycerides Cholesterol LDL Cholesterol Direct HDL Cholesterol Urine WBC (Auto) Urine Creatinine Urine Total Protein Vancomycin Trough Rheumatoid Factor Complement C4 Miscellaneous Test Crossmatch 10/10/16 10/10/16 10/10/16 05:00 05:00 11:19 WBC 18.5 H RBC 2.19 L Hgb 6.4 L Hct 19.6 L* MCV MCH MCHC RDW 19.3 H Plt Count 93 L Lymph % (Auto) [place] % (Auto) Lymph # [place] # Seg Neutrophils % Seg Neuts % (Manual) Lymphocytes % (Manual) 10.0 L Monocytes % (Manual) Eosinophils % (Manual) Basophils % (Manual) Nucleated RBC % 4.0 H Seg Neutrophils # Seg Neutrophils # Man 11.3 H Lymphocytes # (Manual) Monocytes # (Manual) Eosinophils # (Manual) PT INR Fibrinogen dRVVT Confirm Interp Factor V Activity POC ABG pH POC ABG pCO2 POC ABG pO2 Sodium Potassium 5.7 H D Chloride Carbon Dioxide 16 L BUN 94 H Creatinine 3.1 H Glucose 131 H POC Glucose 153 H Lactic Acid Calcium 8.2 L Phosphorus 5.10 H Magnesium 2.40 H Direct Bilirubin 0.3 H ALT < 5 L Alkaline Phosphatase 319 H Troponin T C-Reactive Protein Total Protein 5.1 L Albumin 1.0 L Triglycerides Cholesterol LDL Cholesterol Direct HDL Cholesterol Urine WBC (Auto) Urine Creatinine Urine Total Protein Vancomycin Trough Rheumatoid Factor Complement C4 Miscellaneous Test Crossmatch 10/10/16 10/10/16 10/11/16 17:50 23:30 04:15 WBC RBC Hgb Hct MCV MCH MCHC RDW Plt Count Lymph % (Auto) [place] % (Auto) Lymph # [place] # Seg Neutrophils % Seg Neuts % (Manual) Lymphocytes % (Manual) Monocytes % (Manual) Eosinophils % (Manual) Basophils % (Manual) Nucleated RBC % Seg Neutrophils # Seg Neutrophils # Man Lymphocytes # (Manual) Monocytes # (Manual) Eosinophils # (Manual) PT INR Fibrinogen dRVVT Confirm Interp Factor V Activity POC ABG pH POC ABG pCO2 POC ABG pO2 Sodium Potassium Chloride 96.4 L Carbon Dioxide 21 L BUN 57 H Creatinine 2.1 H Glucose 151 H POC Glucose 146 H 141 H Lactic Acid Calcium 8.3 L Phosphorus Magnesium Direct Bilirubin ALT Alkaline Phosphatase Troponin T C-Reactive Protein Total Protein Albumin Triglycerides Cholesterol LDL Cholesterol Direct HDL Cholesterol Urine WBC (Auto) Urine Creatinine Urine Total Protein Vancomycin Trough Rheumatoid Factor Complement C4 Miscellaneous Test Crossmatch 10/11/16 10/11/16 10/11/16 04:15 04:15 05:30 WBC 28.3 H RBC 3.12 L Hgb 9.3 L Hct 28.7 L D MCV MCH MCHC RDW 17.7 H Plt Count 128 L Lymph % (Auto) [place] % (Auto) Lymph # [place] # Seg Neutrophils % Seg Neuts % (Manual) Lymphocytes % (Manual) Monocytes % (Manual) Eosinophils % (Manual) Basophils % (Manual) Nucleated RBC % Seg Neutrophils # Seg Neutrophils # Man Lymphocytes # (Manual) Monocytes # (Manual) Eosinophils # (Manual) PT INR Fibrinogen dRVVT Confirm Interp Factor V Activity POC ABG pH POC ABG pCO2 POC ABG pO2 Sodium Potassium Chloride Carbon Dioxide BUN Creatinine Glucose POC Glucose 167 H Lactic Acid Calcium Phosphorus Magnesium Direct Bilirubin ALT Alkaline Phosphatase Troponin T C-Reactive Protein 15.80 H Total Protein Albumin Triglycerides Cholesterol LDL Cholesterol Direct HDL Cholesterol Urine WBC (Auto) Urine Creatinine Urine Total Protein Vancomycin Trough Rheumatoid Factor Complement C4 Miscellaneous Test Crossmatch 10/11/16 10/11/16 10/11/16 11:40 15:49 23:57 WBC RBC Hgb Hct MCV MCH MCHC RDW Plt Count Lymph % (Auto) [place] % (Auto) Lymph # [place] # Seg Neutrophils % Seg Neuts % (Manual) Lymphocytes % (Manual) Monocytes % (Manual) Eosinophils % (Manual) Basophils % (Manual) Nucleated RBC % Seg Neutrophils # Seg Neutrophils # Man Lymphocytes # (Manual) Monocytes # (Manual) Eosinophils # (Manual) PT INR Fibrinogen dRVVT Confirm Interp Factor V Activity POC ABG pH POC ABG pCO2 POC ABG pO2 Sodium Potassium Chloride Carbon Dioxide BUN Creatinine Glucose POC Glucose 139 H 168 H 161 H Lactic Acid Calcium Phosphorus Magnesium Direct Bilirubin ALT Alkaline Phosphatase Troponin T C-Reactive Protein Total Protein Albumin Triglycerides Cholesterol LDL Cholesterol Direct HDL Cholesterol Urine WBC (Auto) Urine Creatinine Urine Total Protein Vancomycin Trough Rheumatoid Factor Complement C4 Miscellaneous Test Crossmatch 10/12/16 10/12/16 10/12/16 04:40 04:40 05:44 WBC 22.5 H RBC 2.88 L Hgb 8.8 L Hct 26.8 L MCV MCH MCHC RDW 17.8 H Plt Count Lymph % (Auto) [place] % (Auto) Lymph # [place] # Seg Neutrophils % Seg Neuts % (Manual) Lymphocytes % (Manual) Monocytes % (Manual) Eosinophils % (Manual) Basophils % (Manual) Nucleated RBC % Seg Neutrophils # Seg Neutrophils # Man Lymphocytes # (Manual) Monocytes # (Manual) Eosinophils # (Manual) PT INR Fibrinogen dRVVT Confirm Interp Factor V Activity POC ABG pH POC ABG pCO2 POC ABG pO2 Sodium 134 L Potassium Chloride 93.0 L Carbon Dioxide BUN 74 H Creatinine 2.5 H Glucose 137 H POC Glucose 158 H Lactic Acid Calcium 8.2 L Phosphorus Magnesium Direct Bilirubin ALT Alkaline Phosphatase Troponin T C-Reactive Protein Total Protein Albumin Triglycerides Cholesterol LDL Cholesterol Direct HDL Cholesterol Urine WBC (Auto) Urine Creatinine Urine Total Protein Vancomycin Trough Rheumatoid Factor Complement C4 Miscellaneous Test Crossmatch 10/12/16 10/12/16 10/12/16 12:27 18:18 23:46 WBC RBC Hgb Hct MCV MCH MCHC RDW Plt Count Lymph % (Auto) [place] % (Auto) Lymph # [place] # Seg Neutrophils % Seg Neuts % (Manual) Lymphocytes % (Manual) Monocytes % (Manual) Eosinophils % (Manual) Basophils % (Manual) Nucleated RBC % Seg Neutrophils # Seg Neutrophils # Man Lymphocytes # (Manual) Monocytes # (Manual) Eosinophils # (Manual) PT INR Fibrinogen dRVVT Confirm Interp Factor V Activity POC ABG pH POC ABG pCO2 POC ABG pO2 Sodium Potassium Chloride Carbon Dioxide BUN Creatinine Glucose POC Glucose 153 H 140 H 150 H Lactic Acid Calcium Phosphorus Magnesium Direct Bilirubin ALT Alkaline Phosphatase Troponin T C-Reactive Protein Total Protein Albumin Triglycerides Cholesterol LDL Cholesterol Direct HDL Cholesterol Urine WBC (Auto) Urine Creatinine Urine Total Protein Vancomycin Trough Rheumatoid Factor Complement C4 Miscellaneous Test Crossmatch 10/13/16 10/13/16 10/13/16 06:22 12:29 18:09 WBC RBC Hgb Hct MCV MCH MCHC RDW Plt Count Lymph % (Auto) [place] % (Auto) Lymph # [place] # Seg Neutrophils % Seg Neuts % (Manual) Lymphocytes % (Manual) Monocytes % (Manual) Eosinophils % (Manual) Basophils % (Manual) Nucleated RBC % Seg Neutrophils # Seg Neutrophils # Man Lymphocytes # (Manual) Monocytes # (Manual) Eosinophils # (Manual) PT INR Fibrinogen dRVVT Confirm Interp Factor V Activity POC ABG pH POC ABG pCO2 POC ABG pO2 Sodium Potassium Chloride Carbon Dioxide BUN Creatinine Glucose POC Glucose 165 H 193 H 166 H Lactic Acid Calcium Phosphorus Magnesium Direct Bilirubin ALT Alkaline Phosphatase Troponin T C-Reactive Protein Total Protein Albumin Triglycerides Cholesterol LDL Cholesterol Direct HDL Cholesterol Urine WBC (Auto) Urine Creatinine Urine Total Protein Vancomycin Trough Rheumatoid Factor Complement C4 Miscellaneous Test Crossmatch 10/13/16 10/13/16 10/14/16 Unknown Unknown 05:38 WBC 23.4 H RBC 2.83 L Hgb 8.7 L Hct 26.1 L MCV MCH MCHC RDW 18.1 H Plt Count Lymph % (Auto) [place] % (Auto) Lymph # [place] # Seg Neutrophils % Seg Neuts % (Manual) Lymphocytes % (Manual) Monocytes % (Manual) Eosinophils % (Manual) Basophils % (Manual) Nucleated RBC % Seg Neutrophils # Seg Neutrophils # Man Lymphocytes # (Manual) Monocytes # (Manual) Eosinophils # (Manual) PT INR Fibrinogen dRVVT Confirm Interp Factor V Activity POC ABG pH POC ABG pCO2 POC ABG pO2 Sodium Potassium Chloride 95.8 L Carbon Dioxide BUN 82 H Creatinine 2.6 H Glucose 152 H POC Glucose 195 H Lactic Acid Calcium Phosphorus Magnesium Direct Bilirubin ALT Alkaline Phosphatase Troponin T C-Reactive Protein Total Protein Albumin Triglycerides Cholesterol LDL Cholesterol Direct HDL Cholesterol Urine WBC (Auto) Urine Creatinine Urine Total Protein Vancomycin Trough Rheumatoid Factor Complement C4 Miscellaneous Test Crossmatch 10/14/16 10/14/16 10/14/16 06:35 08:10 11:44 WBC 20.7 H RBC 2.81 L Hgb 8.4 L Hct 27.2 L MCV MCH MCHC RDW 19.4 H Plt Count Lymph % (Auto) [place] % (Auto) Lymph # [place] # Seg Neutrophils % Seg Neuts % (Manual) Lymphocytes % (Manual) Monocytes % (Manual) Eosinophils % (Manual) Basophils % (Manual) Nucleated RBC % Seg Neutrophils # Seg Neutrophils # Man Lymphocytes # (Manual) Monocytes # (Manual) Eosinophils # (Manual) PT INR Fibrinogen dRVVT Confirm Interp Factor V Activity POC ABG pH POC ABG pCO2 POC ABG pO2 Sodium Potassium Chloride Carbon Dioxide BUN 58 H Creatinine 1.9 H Glucose 169 H POC Glucose 174 H Lactic Acid Calcium Phosphorus Magnesium Direct Bilirubin ALT Alkaline Phosphatase Troponin T C-Reactive Protein Total Protein Albumin Triglycerides Cholesterol LDL Cholesterol Direct HDL Cholesterol Urine WBC (Auto) Urine Creatinine Urine Total Protein Vancomycin Trough Rheumatoid Factor Complement C4 Miscellaneous Test Crossmatch 10/14/16 10/14/16 10/15/16 17:13 23:28 05:06 WBC RBC Hgb Hct MCV MCH MCHC RDW Plt Count Lymph % (Auto) [place] % (Auto) Lymph # [place] # Seg Neutrophils % Seg Neuts % (Manual) Lymphocytes % (Manual) Monocytes % (Manual) Eosinophils % (Manual) Basophils % (Manual) Nucleated RBC % Seg Neutrophils # Seg Neutrophils # Man Lymphocytes # (Manual) Monocytes # (Manual) Eosinophils # (Manual) PT INR Fibrinogen dRVVT Confirm Interp Factor V Activity POC ABG pH POC ABG pCO2 POC ABG pO2 Sodium Potassium Chloride Carbon Dioxide BUN Creatinine Glucose POC Glucose 121 H 151 H 151 H Lactic Acid Calcium Phosphorus Magnesium Direct Bilirubin ALT Alkaline Phosphatase Troponin T C-Reactive Protein Total Protein Albumin Triglycerides Cholesterol LDL Cholesterol Direct HDL Cholesterol Urine WBC (Auto) Urine Creatinine Urine Total Protein Vancomycin Trough Rheumatoid Factor Complement C4 Miscellaneous Test Crossmatch 10/15/16 10/15/16 10/15/16 12:26 Unknown Unknown WBC 23.4 H RBC 2.78 L Hgb 8.5 L Hct 25.7 L MCV MCH MCHC RDW 18.7 H Plt Count Lymph % (Auto) [place] % (Auto) Lymph # [place] # Seg Neutrophils % Seg Neuts % (Manual) Lymphocytes % (Manual) Monocytes % (Manual) Eosinophils % (Manual) Basophils % (Manual) Nucleated RBC % Seg Neutrophils # Seg Neutrophils # Man Lymphocytes # (Manual) Monocytes # (Manual) Eosinophils # (Manual) PT INR Fibrinogen dRVVT Confirm Interp Factor V Activity POC ABG pH POC ABG pCO2 POC ABG pO2 Sodium Potassium Chloride Carbon Dioxide BUN 73 H Creatinine 2.3 H Glucose 120 H POC Glucose 149 H Lactic Acid Calcium Phosphorus Magnesium Direct Bilirubin ALT Alkaline Phosphatase Troponin T C-Reactive Protein Total Protein Albumin Triglycerides Cholesterol LDL Cholesterol Direct HDL Cholesterol Urine WBC (Auto) Urine Creatinine Urine Total Protein Vancomycin Trough Rheumatoid Factor Complement C4 Miscellaneous Test Crossmatch Allied health notes reviewed: RT
--- NOTE | 2016-10-15 14:52 | Progress Note ---
Assessment and Plan - Patient Problems (1) Dislodged gastrostomy tube Current Visit: Yes Status: Acute Plan to address problem: continue drainage. abx per ID continue supportive care continue npo/tpn to allow gastric healing. wean vent as tolerated. Subjective Date of service: 10/15/16 Patient Reports: Positive: fever, other (no acute events. afib noted, slight improvement in wbc) Objective Vital Signs - 12hr 10/15/16 10/15/16 10/15/16 03:00 03:09 03:30 Temperature Pulse Rate 118 H 123 H 124 H Pulse Rate [ From Monitor] Pulse Rate [ Left Dorsalis Pedis] Pulse Rate [ Right Dorsalis Pedis] Pulse Rate [ Right Radial] Respiratory 27 H 24 Rate Respiratory Rate [ Generalized] Blood Pressure 183/90 183/90 180/97 O2 Sat by Pulse 98 99 98 Oximetry 10/15/16 10/15/16 10/15/16 04:00 04:30 04:52 Temperature 100.1 F H Pulse Rate 118 H 116 H 120 H Pulse Rate [ 120 H From Monitor] Pulse Rate [ 120 H Left Dorsalis Pedis] Pulse Rate [ 120 H Right Dorsalis Pedis] Pulse Rate [ 120 H Right Radial] Respiratory 30 H 26 H Rate Respiratory Rate [ Generalized] Blood Pressure 180/97 158/93 197/102 O2 Sat by Pulse 99 98 Oximetry 10/15/16 10/15/16 10/15/16 05:00 05:30 06:00 Temperature Pulse Rate 118 H 127 H 133 H Pulse Rate [ From Monitor] Pulse Rate [ Left Dorsalis Pedis] Pulse Rate [ Right Dorsalis Pedis] Pulse Rate [ Right Radial] Respiratory 25 H 23 25 H Rate Respiratory Rate [ Generalized] Blood Pressure 155/71 135/65 141/69 O2 Sat by Pulse 98 97 99 Oximetry 10/15/16 10/15/16 10/15/16 06:30 07:00 07:30 Temperature Pulse Rate 139 H 130 H 128 H Pulse Rate [ From Monitor] Pulse Rate [ Left Dorsalis Pedis] Pulse Rate [ Right Dorsalis Pedis] Pulse Rate [ Right Radial] Respiratory 26 H 25 H 24 Rate Respiratory Rate [ Generalized] Blood Pressure 155/68 145/72 O2 Sat by Pulse 99 99 99 Oximetry 10/15/16 10/15/16 10/15/16 07:47 08:00 08:04 Temperature 99.7 F H Pulse Rate 136 H 142 H Pulse Rate [ From Monitor] Pulse Rate [ Left Dorsalis Pedis] Pulse Rate [ Right Dorsalis Pedis] Pulse Rate [ Right Radial] Respiratory 24 Rate Respiratory Rate [ Generalized] Blood Pressure 159/71 159/71 O2 Sat by Pulse 99 99 Oximetry 10/15/16 10/15/16 10/15/16 08:30 08:40 09:00 Temperature Pulse Rate 139 H 136 H 124 H Pulse Rate [ From Monitor] Pulse Rate [ Left Dorsalis Pedis] Pulse Rate [ Right Dorsalis Pedis] Pulse Rate [ Right Radial] Respiratory 26 H 25 H Rate Respiratory Rate [ Generalized] Blood Pressure 160/73 176/86 O2 Sat by Pulse 99 99 Oximetry 10/15/16 10/15/16 10/15/16 09:30 10:00 10:30 Temperature Pulse Rate 128 H 140 H 128 H Pulse Rate [ From Monitor] Pulse Rate [ Left Dorsalis Pedis] Pulse Rate [ Right Dorsalis Pedis] Pulse Rate [ Right Radial] Respiratory 25 H 24 25 H Rate Respiratory 24 Rate [ Generalized] Blood Pressure 173/83 157/81 151/80 O2 Sat by Pulse 99 99 98 Oximetry 10/15/16 10/15/16 10/15/16 11:00 11:30 12:00 Temperature 100.4 F H Pulse Rate 125 H 135 H 137 H Pulse Rate [ From Monitor] Pulse Rate [ Left Dorsalis Pedis] Pulse Rate [ Right Dorsalis Pedis] Pulse Rate [ Right Radial] Respiratory 23 24 29 H Rate Respiratory Rate [ Generalized] Blood Pressure 136/73 154/100 170/100 O2 Sat by Pulse 100 100 92 Oximetry 10/15/16 10/15/16 10/15/16 12:01 12:04 12:31 Temperature Pulse Rate 136 H 133 H 119 H Pulse Rate [ From Monitor] Pulse Rate [ Left Dorsalis Pedis] Pulse Rate [ Right Dorsalis Pedis] Pulse Rate [ Right Radial] Respiratory 26 H Rate Respiratory Rate [ Generalized] Blood Pressure 170/100 150/76 139/61 O2 Sat by Pulse 91 93 Oximetry 10/15/16 10/15/16 13:00 13:24 Temperature Pulse Rate 127 H 148 H Pulse Rate [ From Monitor] Pulse Rate [ Left Dorsalis Pedis] Pulse Rate [ Right Dorsalis Pedis] Pulse Rate [ Right Radial] Respiratory 25 H Rate Respiratory Rate [ Generalized] Blood Pressure 132/70 132/70 O2 Sat by Pulse 94 Oximetry - General physical appearance no distress - Respiratory normal respiratory effort - Abdomen soft, not tender, not distended, other (purulent drainage) - Labs 10/15/16 Unknown 10/15/16 Unknown Diabetes panel 10/15/16 Range/Units Unknown Sodium 140 (137-145) mmol/L Potassium 4.1 (3.6-5.0) mmol/L Chloride 98.5 (98-107) mmol/L Carbon Dioxide 25 (22-30) mmol/L BUN 73 H (7-17) mg/dL Creatinine 2.3 H (0.7-1.2) mg/dL Glucose 120 H (65-100) mg/dL Calcium 9.2 (8.4-10.2) mg/dL Calcium panel 10/15/16 Range/Units Unknown Calcium 9.2 (8.4-10.2) mg/dL Phosphorus 2.90 (2.5-4.5) mg/dL Pituitary panel 10/15/16 Range/Units Unknown Sodium 140 (137-145) mmol/L Potassium 4.1 (3.6-5.0) mmol/L Chloride 98.5 (98-107) mmol/L Carbon Dioxide 25 (22-30) mmol/L BUN 73 H (7-17) mg/dL Creatinine 2.3 H (0.7-1.2) mg/dL Glucose 120 H (65-100) mg/dL Calcium 9.2 (8.4-10.2) mg/dL Adrenal panel 10/15/16 Range/Units Unknown Sodium 140 (137-145) mmol/L Potassium 4.1 (3.6-5.0) mmol/L Chloride 98.5 (98-107) mmol/L Carbon Dioxide 25 (22-30) mmol/L BUN 73 H (7-17) mg/dL Creatinine 2.3 H (0.7-1.2) mg/dL Glucose 120 H (65-100) mg/dL Calcium 9.2 (8.4-10.2) mg/dL
[2016-10-15] MEDS ORDERED: TPN ADULT 2,016 ML IV SCH (20:00)
[2016-10-16] MEDS: HumuLIN R SUB-Q SCH ×4 (00:05→17:59)
[2016-10-16] MEDS: LOPRESSOR IV SCH ×7 (03:14→22:09)
[2016-10-16 06:46] LABS: Hematocrit 25.2 % (30.3-42.9); Hemoglobin 8.3 gm/dl (10.1-14.3); Mean Corpuscular HGB Conc 33 % (30-34); Mean Corpuscular Hemoglobin 30 pg (28-32); Mean Corpuscular Volume 91 fl (79-97); Platelet Count 227 K/mm3 (140-440); Red Blood Count 2.76 M/mm3 (3.65-5.03); Red Cell Distribution Width 18.3 % (13.2-15.2)
[2016-10-16 07:04] LABS: BUN/Creatinine Ratio 30.66; Calcium 9.3 mg/dL (8.4-10.2)
--- NOTE | 2016-10-16 08:32 | Progress Note ---
Assessment and Plan Assessment and plan: Assessment and plan: Acute hypoxic respiratory failure On mechanical ventilation Status post trach Acute massive left MCA CVA Status post TPA Aspirin/statin Supportive care Toxic metabolic Encephalopathy Multifactorial. Still not following commands Dislodged PEG Status post wedge gastrectomy, repair of gastric perforation, abdominal washout and drain placement Surgery following Severe sepsis with septic shock UTI/candidemia/peritonitis due to gastric perforation from dislodged PEG Off pressors She is now on Meropenem as per ID recommendation Candidemia. completed micofungin Peritonitis Toxic metabolic encephalopathy,unresponsive. neurology following Acute blood loss anemia requiring multiple PRBC transfusions. Hemoglobin 8.5 today . Repeat stool occult blood positive. GI Physician was following, now signed off. Monitor H&H closely, Fever,recurrent due to sepsis. CT Abdomen negative for sepsis Acute on chronic kidney disease, On dialysis prn managed by Nephrology . Creatinine 3.0 today Paroxysmal A. fib Status post failed conversion on 09/25 Continue Amiodarone drip No anticoagulation due to anemia/thrombocytopenia, massive CVA Diabetes mellitus type 2 Insulin/SSI Leukocytosis . WBC 22.5 today, minimally improved from yesterday Severe protein caloric malnutrition Currently on TPN Extensive back skin peeling, much improved. Thrombocytopenia DVT prophylaxis SCDs, no pharmacological agent given anemia requiring multiple PRBC transfusions , thrombocytopenia, massive stroke Hyperkalemia. Resolved after dialysis Full code status Prognosis guarded Had a family meeting Monday in which I discussed plan. Present at meeting was the Risk management staff, account relationship manager and myself, patient's son and patients ' sister. addendum; Had another family meeting Monday10/14/16 at 10:00am with Dr. Nazario, myself, Container Filler and patient's daughter. We discussed diagnosis,plan and prognosis, and all her questions were answered. History Interval history: Patient with multi-organ failure, Still having fever Still does not follow commands Hospitalist Physical - Physical exam Narrative exam: Gen appearance: Trach, not in acute distress HEENT: Atraumatic Neck: Tracheostomy Lungs: Clear to auscultation bilaterally, no crackles or wheezes Heart :S1 and S2 irregular, no murmurs, rubs or gallop Abdomen: Soft, surgical drain, dressing over upper abdomen, bowel sounds present ,rectal tube Extremities : bilateral edema, upper and lower ext Neuro: Does not follow commands - Constitutional Vitals: Temp Pulse Resp BP Pulse Ox 99.4 F 130 H 26 H 129/76 99 10/16/16 07:26 10/16/16 08:11 10/16/16 07:30 10/16/16 08:11 10/16/16 08:11 General appearance: Present: mild distress, obese, other (on vent, non- responsive) Results - Labs CBC & Chem 7: 10/16/16 06:25 10/16/16 06:25 Labs: Laboratory Last Values WBC 22.5 K/mm3 (4.5-11.0) H 10/16/16 06:25 RBC 2.76 M/mm3 (3.65-5.03) L 10/16/16 06:25 Hgb 8.3 gm/dl (10.1-14.3) L 10/16/16 06:25 Hct 25.2 % (30.3-42.9) L 10/16/16 06:25 MCV 91 fl (79-97) 10/16/16 06:25 MCH 30 pg (28-32) 10/16/16 06:25 MCHC 33 % (30-34) 10/16/16 06:25 RDW 18.3 % (13.2-15.2) H 10/16/16 06:25 Plt Count 227 K/mm3 (140-440) 10/16/16 06:25 Lymph % (Auto) 6.9 % (13.4-35.0) L 09/21/16 07:45 [place] % (Auto) 0.5 % (0.0-7.3) 10/03/16 05:10 Eos % (Auto) 1.3 % (0.0-4.3) 10/03/16 05:10 Baso % (Auto) 0.2 % (0.0-1.8) 09/21/16 07:45 Lymph # 0.9 K/mm3 (1.2-5.4) L 09/21/16 07:45 [place] # 0.1 K/mm3 (0.0-0.8) 10/03/16 05:10 Eos # 0.2 K/mm3 (0.0-0.4) 10/03/16 05:10 Baso # 0.0 K/mm3 (0.0-0.1) 10/03/16 05:10 Add Manual Diff Complete 10/10/16 05:00 Total Counted 100 10/10/16 05:00 Seg Neutrophils % Clinic Lpn 10/03/16 05:10 Seg Neuts % (Manual) 61.0 % (40.0-70.0) 10/10/16 05:00 Band Neutrophils % 24.0 % 10/10/16 05:00 Lymphocytes % (Manual) 10.0 % (13.4-35.0) L 10/10/16 05:00 Reactive Lymphs % (Man) 0 % 10/10/16 05:00 Monocytes % (Manual) 2.0 % (0.0-7.3) 10/10/16 05:00 Eosinophils % (Manual) 0 % (0.0-4.3) 10/10/16 05:00 Basophils % (Manual) 0 % (0.0-1.8) 10/10/16 05:00 Metamyelocytes % 3.0 % 10/10/16 05:00 Myelocytes % 0 % 10/10/16 05:00 Promyelocytes % 0 % 10/10/16 05:00 Blast Cells % 0 % 10/10/16 05:00 Nucleated RBC % 4.0 % (0.0-0.9) H 10/10/16 05:00 Seg Neutrophils # 11.9 K/mm3 (1.8-7.7) H 10/03/16 05:10 Seg Neutrophils # Man 11.3 K/mm3 (1.8-7.7) H 10/10/16 05:00 Band Neutrophils # 4.4 K/mm3 10/10/16 05:00 Lymphocytes # (Manual) 1.9 K/mm3 (1.2-5.4) 10/10/16 05:00 Abs React Lymphs (Man) 0.0 K/mm3 10/10/16 05:00 Monocytes # (Manual) 0.4 K/mm3 (0.0-0.8) 10/10/16 05:00 Eosinophils # (Manual) 0.0 K/mm3 (0.0-0.4) 10/10/16 05:00 Basophils # (Manual) 0.0 K/mm3 (0.0-0.1) 10/10/16 05:00 Metamyelocytes # 0.6 K/mm3 10/10/16 05:00 Myelocytes # 0.0 K/mm3 10/10/16 05:00 Promyelocytes # 0.0 K/mm3 10/10/16 05:00 Blast Cells # 0.0 K/mm3 10/10/16 05:00 Pathologist Review 09/13/16 04:00 WBC Morphology Not Reportable 10/10/16 05:00 Hypersegmented Neuts Not Reportable 10/10/16 05:00 Hyposegmented Neuts Not Reportable 10/10/16 05:00 Hypogranular Neuts Not Reportable 10/10/16 05:00 Smudge Cells Not Reportable 10/10/16 05:00 Toxic Granulation Not Reportable 10/10/16 05:00 Toxic Vacuolation Not Reportable 10/10/16 05:00 Dohle Bodies Not Reportable 10/10/16 05:00 Pelger-Huet Anomaly Not Reportable 10/10/16 05:00 Jasmina Rods Not Reportable 10/10/16 05:00 Platelet Estimate Consistent w auto 10/10/16 05:00 Clumped Platelets Not Reportable 10/10/16 05:00 Plt Clumps, EDTA Not Reportable 10/10/16 05:00 Large Platelets Not Reportable 10/10/16 05:00 Giant Platelets Not Reportable 10/10/16 05:00 Platelet Satelliting Not Reportable 10/10/16 05:00 Plt Morphology Comment Not Reportable 10/10/16 05:00 RBC Morphology Not Reportable 10/10/16 05:00 Dimorphic RBCs Not Reportable 10/10/16 05:00 Polychromasia Rare 10/10/16 05:00 Hypochromasia 1+ 10/10/16 05:00 Poikilocytosis Not Reportable 10/10/16 05:00 Anisocytosis 1+ 10/10/16 05:00 Microcytosis Not Reportable 10/10/16 05:00 Macrocytosis 1+ 10/10/16 05:00 Spherocytes Not Reportable 10/10/16 05:00 Pappenheimer Bodies Not Reportable 10/10/16 05:00 Sickle Cells Not Reportable 10/10/16 05:00 Target Cells Not Reportable 10/10/16 05:00 Tear Drop Cells Not Reportable 10/10/16 05:00 Ovalocytes Not Reportable 10/10/16 05:00 Stomatocytes Few 10/06/16 03:50 Helmet Cells Not Reportable 10/10/16 05:00 [place] Bodies Not Reportable 10/10/16 05:00 [place] Rings Not Reportable 10/10/16 05:00 [place] Cells Not Reportable 10/10/16 05:00 Bite Cells Not Reportable 10/10/16 05:00 Crenated Cell Not Reportable 10/10/16 05:00 Elliptocytes Not Reportable 10/10/16 05:00 Acanthocytes (Spur) Not Reportable 10/10/16 05:00 Rouleaux Not Reportable 10/10/16 05:00 Hemoglobin C Crystals Not Reportable 10/10/16 05:00 Schistocytes Not Reportable 10/10/16 05:00 Malaria parasites Not Reportable 10/10/16 05:00 ESR > 140.0 mm/Hr (0-20) 09/08/16 11:48 Jun Bodies Not Reportable 10/10/16 05:00 Hem Pathologist Commnt No 10/10/16 05:00 PT 19.0 Sec. (12.2-14.9) H 10/09/16 03:45 INR 1.51 (0.87-1.13) H 10/09/16 03:45 APTT 33.0 Sec. (24.2-36.6) 10/09/16 03:45 Thrombin Time 16.8 Sec. (15.1-19.6) 09/03/16 00:10 Fibrinogen 750 mg/dl (211-480) H 09/08/16 11:48 Lupus Anticoagulant see below 09/12/16 09:59 LA PTT Baseline See scanned report 09/12/16 09:59 dRVVT Confirm Interp Positive (Negative) H 09/12/16 09:59 dRVVT Screen 50:50 See scanned report 09/12/16 09:59 dRVVT Mix Interpret See scanned report 09/12/16 09:59 Protein C Antigen 122 % (70-140) 09/08/16 15:35 Free Protein S 97 % normal (50-147) 09/08/16 15:35 Total Protein S 109 % (70-140) 09/08/16 15:35 Antithrombin III Ag 100 % (80-120) 09/08/16 15:35 Heparin Anti-Xa, Unfract Negative (Negative) 09/29/16 13:35 Factor V Activity 182 % (65-150) H 09/08/16 15:35 POC ABG pH 7.437 (7.35-7.45) 10/08/16 12:49 POC ABG pCO2 28.2 (35-45) L 10/08/16 12:49 POC ABG pO2 111 (80-105) H 10/08/16 12:49 POC ABG HCO3 19.0 10/08/16 12:49 POC ABG Total CO2 20 10/08/16 12:49 POC ABG O2 Sat 99 10/08/16 12:49 POC ABG Base Excess -5 10/08/16 12:49 FiO2 28 % 10/08/16 12:49 Sodium 142 mmol/L (137-145) 10/16/16 06:25 Potassium 4.0 mmol/L (3.6-5.0) 10/16/16 06:25 Chloride 99.4 mmol/L (98-107) 10/16/16 06:25 Carbon Dioxide 24 mmol/L (22-30) 10/16/16 06:25 Anion Gap 23 mmol/L 10/16/16 06:25 BUN 92 mg/dL (7-17) H 10/16/16 06:25 Creatinine 3.0 mg/dL (0.7-1.2) H 10/16/16 06:25 Estimated GFR 20 ml/min 10/16/16 06:25 BUN/Creatinine Ratio 30.66 % 10/16/16 06:25 Glucose 138 mg/dL (65-100) H 10/16/16 06:25 POC Glucose 110 (70-105) H 10/16/16 05:44 Osmolality 351 Mosm/kg 09/16/16 11:47 Lactic Acid 4.50 mmol/L (0.7-2.0) H* 09/28/16 07:25 Calcium 9.3 mg/dL (8.4-10.2) 10/16/16 06:25 Phosphorus 3.70 mg/dL (2.5-4.5) D 10/16/16 06:25 Magnesium 1.80 mg/dL (1.7-2.3) 10/15/16 Unknown Total Bilirubin 0.40 mg/dL (0.1-1.2) 10/10/16 05:00 Direct Bilirubin 0.3 mg/dL (0-0.2) H 10/10/16 05:00 Indirect Bilirubin 0.1 mg/dL 10/10/16 05:00 AST 21 units/L (5-40) 10/10/16 05:00 ALT < 5 units/L (7-56) L 10/10/16 05:00 Alkaline Phosphatase 319 units/L (35-129) H 10/10/16 05:00 Ammonia 27.0 umol/L (25-60) 09/07/16 08:37 Total Creatine Kinase 121 units/L (30-135) 09/29/16 20:12 CK-MB (CK-2) < 1.0 ng/mL (0.0-4.0) 09/29/16 20:12 CK-MB (CK-2) Rel Index 0.8 (0-4) 09/29/16 20:12 Troponin T 0.204 ng/mL (0.00-0.029) H* 09/29/16 20:12 C-Reactive Protein 15.80 mg/dL (0.00-1.30) H 10/11/16 04:15 Total Protein 5.1 g/dL (6.3-8.2) L 10/10/16 05:00 Albumin 1.0 g/dL (3.9-5) L 10/10/16 05:00 Albumin/Globulin Ratio 0.2 % 10/10/16 05:00 Triglycerides 137 mg/dL (2-149) 09/29/16 20:12 Cholesterol 31 mg/dL (50-199) L 09/29/16 20:12 LDL Cholesterol Direct 4 mg/dL (50-130) L 09/29/16 20:12 HDL Cholesterol 3 mg/dL (40-59) L 09/29/16 20:12 Cholesterol/HDL Ratio 10.33 % 09/29/16 20:12 Angiotensin Convert Enz See scanned report 09/08/16 11:48 Renin 0.99 ng/mL/h (0.25-5.82) 10/07/16 10:56 Aldosterone <1 ng/dL () 10/07/16 10:56 Aldosterone/Renin Dir see below 10/07/16 10:56 Serotonin Release Assay See scanned report 09/29/16 13:35 TSH 1.010 mlU/mL (0.270-4.200) 09/07/16 08:37 HCG, Qual Negative (Negative) 09/03/16 00:10 Urine Color [place] (Yellow) 10/07/16 18:30 Urine Turbidity Turbid (Clear) 10/07/16 18:30 Urine pH 7.0 (5.0-7.0) 10/07/16 18:30 Ur Specific [place] 1.012 (1.003-1.030) 10/07/16 18:30 Urine Protein 100 mg/dl mg/dL (Negative) 10/07/16 18:30 Urine Glucose (UA) Neg mg/dL (Negative) 10/07/16 18:30 Urine Ketones Neg mg/dL (Negative) 10/07/16 18:30 Urine Blood Lg (Negative) 10/07/16 18:30 Urine Nitrite Neg (Negative) 10/07/16 18:30 Urine Bilirubin Neg (Negative) 10/07/16 18:30 Urine Urobilinogen < 2.0 mg/dL (<2.0) 10/07/16 18:30 Ur Leukocyte Esterase Lg (Negative) 10/07/16 18:30 Urine WBC (Auto) > 182.0 /HPF (0.0-6.0) H 10/07/16 18:30 Urine RBC (Auto) > 182.0 /HPF (0.0-6.0) 10/07/16 18:30 U Epithel Cells (Auto) 1.0 /HPF (0-13.0) 10/07/16 18:30 Urine Bacteria (Auto) 3+ /HPF (Negative) 10/07/16 18:30 Urine WBC Clumps 2+ /HPF 09/07/16 02:47 Hyaline Casts 4 /LPF 09/07/16 02:47 Urine Mucus Few /HPF 10/07/16 18:30 Urine Yeast (Budding) 3+ /HPF 10/07/16 18:30 Urine Eosinophils None seen (None Seen) 09/07/16 16:00 Urine Total Volume 1350 09/21/16 12:00 Urine Creatinine 54.8 mg/dL (0.1-20.0) H 09/21/16 12:00 Height (in) 67.0 inches 09/21/16 12:00 Weight (lb) 92.0 lbs 09/21/16 12:00 Creatinine Clearance 15 09/21/16 12:00 Urine Sodium 36 mEq/L 09/16/16 19:19 Urine Total Protein 16 mg/dL (5-11.8) H 09/16/16 19:19 Vancomycin Trough 2.3 ug/mL (5.0-20.0) L 09/21/16 13:00 Random Vancomycin 2.3 ug/mL (0-40.0) 09/09/16 03:00 Urine Opiates Screen Presumptive negative 09/03/16 15:11 Urine Methadone Screen Presumptive positive 09/03/16 15:11 Ur Barbiturates Screen Presumptive positive 09/03/16 15:11 Ur Phencyclidine Scrn Presumptive negative 09/03/16 15:11 Ur Amphetamines Screen Presumptive negative 09/03/16 15:11 U Benzodiazepines Scrn Presumptive negative 09/03/16 15:11 Urine Cocaine Screen Presumptive negative 09/03/16 15:11 U Marijuana (THC) Screen Presumptive positive 09/03/16 15:11 Drugs of Abuse Note Disclamer 09/03/16 15:11 Rheumatoid Factor 24 IU/ml (0-13) H 09/08/16 11:48 SAHIL Screen Negative (Negative) 09/07/16 09:20 Proteinase 3 (PR3) Ab <1.0 AI (<1.0) 09/07/16 09:20 Myeloperoxidase Ab <1.0 AI (<1.0) 09/07/16 09:20 Sjogren's Antibody <1.0 AI (<1.0) 09/08/16 15:35 Scl-70 Scleroderma Ab <1.0 AI (<1.0) 09/08/16 15:35 Centromere B Antibody <1.0 AI (<1.0) 09/08/16 12:02 Heparin-induced Plt Ab Negative (Negative) 09/29/16 13:35 UF Heparin High Dose 11 % Release 09/29/16 13:35 SUDHIR UFH Low Dose 0.1 6 % Release 09/29/16 13:35 SUDHIR UFH Low Dose 0.5 8 % Release 09/29/16 13:35 Cardiolipid IgG Ab <14 GPL (<=14) 09/12/16 09:59 Cardiolipid IgA Ab <11 APL (<=11) 09/12/16 09:59 Cardiolipid IgM Ab <12 MPL (<=12) 09/12/16 09:59 Complement C3 148 mg/dL (90-180) 09/07/16 09:20 Complement C4 58 mg/dL (16-47) H 09/07/16 09:20 RPR Nonreactive (Nonreactive) 09/08/16 11:48 Hepatitis A IgM Ab Non-reactive (NonReactive) 09/24/16 14:40 Hep Bs Antigen Non-reactive (Negative) 09/24/16 14:40 Hep B Core IgM Ab Non-reactive (NonReactive) 09/24/16 14:40 Hepatitis C Antibody Non-reactive (NonReactive) 09/24/16 14:40 HIV 1&2 Antibody Rapid Non react (Non React) 09/08/16 11:48 HIV P24 Antigen Non react (Non React) 09/08/16 11:48 Miscellaneous Test Flexitest 1 H 10/07/16 03:45 Blood Type A POSITIVE 10/09/16 07:20 Antibody Screen Negative 10/09/16 07:20 DELORIS Antibody Screen Negative 09/25/16 10:30 Crossmatch See Detail 10/09/16 07:20
[2016-10-16] MEDS: MERREM 1,000 MG in NACL 0.9% 100 ML IV SCH (09:37)
[2016-10-16] MEDS: PROTONIX IV SCH (09:37)
--- NOTE | 2016-10-16 09:47 | Progress Note ---
Assessment and Plan - Patient Problems (1) Acute respiratory failure with hypoxia Current Visit: Yes Status: Acute Plan to address problem: Continue with mechanical ventilatory support Lung protective strategies -VAP bundle, HOB >40 - SCDs for VTE prophylaxis - Stress ulcer prophylaxis -Bronchodilators- h/o asthma -[place] catheter in this critically ill patient - TPN, accucheck with glycemic control - Agitation management/analgesia - daily SATs and SBTs as tolerated - ABGs and CXR -Trach care per RT Needs transfer to LTACH and chronic weaning from mechanical ventilatory support (2) Acute CVA (cerebrovascular accident) Current Visit: Yes Status: Acute Plan to address problem: CTScan -subacute MCA territory infarct Secondary stroke prophylaxis Neuroprotective measures Aspiration precautions (3) Chronic renal insufficiency Current Visit: Yes Status: Acute Qualifiers: Chronic kidney disease stage: C Plan to address problem: UF/HD per renal service Renal following Needs UF to facilitate resumption of weaning trials (4) Uncontrolled hypertension Current Visit: Yes Status: Acute Plan to address problem: Monitor closely and adjust anti-hypertensive medications (5) Leukocytosis (leucocytosis) Current Visit: Yes Status: Acute Qualifiers: Leukocytosis type: leukemoid reaction Qualified Code(s): D72.823 - Leukemoid reaction Plan to address problem: On antibiotics and antifungal per ID service. (6) Dislodged gastrostomy tube Current Visit: Yes Status: Acute Plan to address problem: With bowel perforation/peritonitis. Purulent drainage from JUAN drain. Remains NPO and on TPN for nutritional support. GI/Surgery following (7) Fungemia Current Visit: Yes Status: Acute Plan to address problem: Anti-fungal therapy per ID service. Subjective Date of service: 10/16/16 Principal diagnosis: hematochezia Interval history: Seen and examined. Vitals, labs, medications, chart reviewed. On mechanical ventilatory support On TPN, with purulent drainage from the JUAN drain. No fevers.Currently no further surgical interventions Discussed with RT and RN Objective - Exam Narrative Exam: General appearance: Non verbal, on the vent via trach no following commands Eyes: anicteric sclera, moist conjunctivae; PERRLA HENT: Atraumatic; oropharynx limited; Normal external ears. +NGT with greenish secretion Neck: +trach in place; supple, no thyromegaly or lymphadenopathy Lungs: coarse BS bilateral CV: tachycardic Abdomen: Soft, non-tender, +drain with purulent drainage, + diarrhea via rectal tube. +old PEG site no drainage. Extremities: +peripheral edema no extremity lymphadenopathy Skin: Julian sub mammary ulcers, extensive skin peeling on back Neuro: Awake and alert, not obeying commands Lines: left arm PICC placed on 10/03 Vital Signs - 12hr 10/15/16 10/15/16 10/15/16 22:00 22:31 23:00 Temperature Pulse Rate 114 H 123 H 122 H Pulse Rate [ From Monitor] Pulse Rate [ Left Dorsalis Pedis] Pulse Rate [ Left Radial] Pulse Rate [ Right Dorsalis Pedis] Pulse Rate [ Right Radial] Respiratory 29 H 32 H 26 H Rate Respiratory 24 Rate [ Generalized] Blood Pressure 168/90 168/90 183/105 O2 Sat by Pulse 96 96 97 Oximetry O2 Sat by Pulse Oximetry [ Assessment] 10/15/16 10/15/16 10/15/16 23:01 23:31 23:36 Temperature Pulse Rate 121 H 122 H Pulse Rate [ From Monitor] Pulse Rate [ Left Dorsalis Pedis] Pulse Rate [ Left Radial] Pulse Rate [ Right Dorsalis Pedis] Pulse Rate [ Right Radial] Respiratory 29 H 30 H Rate Respiratory Rate [ Generalized] Blood Pressure 183/105 183/105 O2 Sat by Pulse 96 97 Oximetry O2 Sat by Pulse 97 Oximetry [ Assessment] 10/15/16 10/16/16 10/16/16 23:37 00:00 00:31 Temperature 99.7 F H Pulse Rate 127 H 128 H 119 H Pulse Rate [ 120 H From Monitor] Pulse Rate [ 120 H Left Dorsalis Pedis] Pulse Rate [ 120 H Left Radial] Pulse Rate [ 120 H Right Dorsalis Pedis] Pulse Rate [ 120 H Right Radial] Respiratory 26 H 27 H Rate Respiratory Rate [ Generalized] Blood Pressure 183/105 175/107 175/107 O2 Sat by Pulse 96 97 99 Oximetry O2 Sat by Pulse Oximetry [ Assessment] 10/16/16 10/16/16 10/16/16 01:00 01:31 02:00 Temperature Pulse Rate 122 H 127 H 131 H Pulse Rate [ From Monitor] Pulse Rate [ Left Dorsalis Pedis] Pulse Rate [ Left Radial] Pulse Rate [ Right Dorsalis Pedis] Pulse Rate [ Right Radial] Respiratory 28 H 30 H 26 H Rate Respiratory Rate [ Generalized] Blood Pressure 184/107 184/107 208/129 O2 Sat by Pulse 98 100 100 Oximetry O2 Sat by Pulse Oximetry [ Assessment] 10/16/16 10/16/16 10/16/16 02:31 03:00 03:14 Temperature Pulse Rate 113 H 112 H Pulse Rate [ From Monitor] Pulse Rate [ Left Dorsalis Pedis] Pulse Rate [ Left Radial] Pulse Rate [ Right Dorsalis Pedis] Pulse Rate [ Right Radial] Respiratory 29 H Rate Respiratory Rate [ Generalized] Blood Pressure 208/129 170/81 170/80 O2 Sat by Pulse 96 Oximetry O2 Sat by Pulse Oximetry [ Assessment] 10/16/16 10/16/16 10/16/16 03:16 03:20 03:30 Temperature Pulse Rate 112 H 112 H Pulse Rate [ 112 H From Monitor] Pulse Rate [ Left Dorsalis Pedis] Pulse Rate [ 112 H Left Radial] Pulse Rate [ Right Dorsalis Pedis] Pulse Rate [ 112 H Right Radial] Respiratory 29 H 25 H Rate Respiratory Rate [ Generalized] Blood Pressure 170/81 170/81 O2 Sat by Pulse 97 Oximetry O2 Sat by Pulse Oximetry [ Assessment] 10/16/16 10/16/16 10/16/16 04:00 04:30 05:00 Temperature 98.8 F Pulse Rate 123 H 119 H 117 H Pulse Rate [ From Monitor] Pulse Rate [ Left Dorsalis Pedis] Pulse Rate [ Left Radial] Pulse Rate [ Right Dorsalis Pedis] Pulse Rate [ Right Radial] Respiratory 28 H 26 H 25 H Rate Respiratory Rate [ Generalized] Blood Pressure 175/89 175/89 167/85 O2 Sat by Pulse 97 97 97 Oximetry O2 Sat by Pulse Oximetry [ Assessment] 10/16/16 10/16/16 10/16/16 05:30 06:00 06:30 Temperature Pulse Rate 121 H 126 H 114 H Pulse Rate [ From Monitor] Pulse Rate [ Left Dorsalis Pedis] Pulse Rate [ Left Radial] Pulse Rate [ Right Dorsalis Pedis] Pulse Rate [ Right Radial] Respiratory 26 H 30 H 28 H Rate Respiratory Rate [ Generalized] Blood Pressure 167/85 176/91 176/91 O2 Sat by Pulse 97 97 100 Oximetry O2 Sat by Pulse Oximetry [ Assessment] 10/16/16 10/16/16 10/16/16 07:00 07:26 07:30 Temperature 99.4 F Pulse Rate 122 H 118 H Pulse Rate [ From Monitor] Pulse Rate [ Left Dorsalis Pedis] Pulse Rate [ Left Radial] Pulse Rate [ Right Dorsalis Pedis] Pulse Rate [ Right Radial] Respiratory 29 H 26 H Rate Respiratory Rate [ Generalized] Blood Pressure 184/114 137/74 O2 Sat by Pulse 98 99 Oximetry O2 Sat by Pulse Oximetry [ Assessment] 10/16/16 10/16/16 10/16/16 07:39 08:11 09:36 Temperature Pulse Rate 130 H 161 H Pulse Rate [ From Monitor] Pulse Rate [ Left Dorsalis Pedis] Pulse Rate [ Left Radial] Pulse Rate [ Right Dorsalis Pedis] Pulse Rate [ Right Radial] Respiratory Rate Respiratory Rate [ Generalized] Blood Pressure 129/76 129/82 O2 Sat by Pulse 100 99 Oximetry O2 Sat by Pulse Oximetry [ Assessment] Constitutional: no acute distress, other (grimaces with moving) Eyes: non-icteric, other (tracheostomy tube in midline of neck) ENT: oropharynx moist Neck: supple, no lymphadenopathy Effort: mildly labored Ascultation: Bilateral: clear, diminished breath sounds (bases), rales, rhonchi (bases) Cardiovascular: regular rate and rhythm Gastrointestinal: hypoactive bowel sounds, soft, non-tender, non-distended Integumentary: other (erythema to skin of back with some healing areas; no obvious TEN's features) Extremities: no cyanosis, no edema, pulses normal, no ischemia or petechiae Neurologic: pupils equal and round, other (sedated) Psychiatric: other (unable to assess) CBC and BMP: 10/16/16 06:25 10/16/16 06:25 ABG, PT/INR, D-dimer: ABG POC ABG pH 7.437 (7.35-7.45) 10/08/16 12:49 POC ABG pCO2 28.2 (35-45) L 10/08/16 12:49 POC ABG pO2 111 (80-105) H 10/08/16 12:49 POC ABG HCO3 19.0 10/08/16 12:49 POC ABG Total CO2 20 10/08/16 12:49 POC ABG O2 Sat 99 10/08/16 12:49 PT/INR, D-dimer PT 19.0 Sec. (12.2-14.9) H 10/09/16 03:45 INR 1.51 (0.87-1.13) H 10/09/16 03:45 Abnormal lab findings: Abnormal Labs 09/03/16 09/03/16 09/03/16 12:12 15:07 16:20 WBC RBC Hgb Hct MCV MCH MCHC RDW Plt Count Lymph % (Auto) [place] % (Auto) Lymph # [place] # Seg Neutrophils % Seg Neuts % (Manual) Lymphocytes % (Manual) Monocytes % (Manual) Eosinophils % (Manual) Basophils % (Manual) Nucleated RBC % Seg Neutrophils # Seg Neutrophils # Man Lymphocytes # (Manual) Monocytes # (Manual) Eosinophils # (Manual) PT INR Fibrinogen dRVVT Confirm Interp Factor V Activity POC ABG pH 7.452 H POC ABG pCO2 POC ABG pO2 Sodium Potassium Chloride Carbon Dioxide BUN Creatinine Glucose POC Glucose 178 H Lactic Acid Calcium Phosphorus 2.20 L Magnesium 1.60 L Direct Bilirubin ALT Alkaline Phosphatase Troponin T C-Reactive Protein Total Protein Albumin Triglycerides Cholesterol LDL Cholesterol Direct HDL Cholesterol Urine WBC (Auto) Urine Creatinine Urine Total Protein Vancomycin Trough Rheumatoid Factor Complement C4 Miscellaneous Test Crossmatch 09/03/16 09/03/16 09/03/16 17:57 17:58 23:50 WBC RBC Hgb Hct MCV MCH MCHC RDW Plt Count Lymph % (Auto) [place] % (Auto) Lymph # [place] # Seg Neutrophils % Seg Neuts % (Manual) Lymphocytes % (Manual) Monocytes % (Manual) Eosinophils % (Manual) Basophils % (Manual) Nucleated RBC % Seg Neutrophils # Seg Neutrophils # Man Lymphocytes # (Manual) Monocytes # (Manual) Eosinophils # (Manual) PT INR Fibrinogen dRVVT Confirm Interp Factor V Activity POC ABG pH POC ABG pCO2 POC ABG pO2 Sodium Potassium Chloride Carbon Dioxide BUN Creatinine Glucose POC Glucose 162 H 145 H Lactic Acid Calcium Phosphorus 2.30 L Magnesium Direct Bilirubin ALT Alkaline Phosphatase Troponin T C-Reactive Protein Total Protein Albumin Triglycerides Cholesterol LDL Cholesterol Direct HDL Cholesterol Urine WBC (Auto) Urine Creatinine Urine Total Protein Vancomycin Trough Rheumatoid Factor Complement C4 Miscellaneous Test Crossmatch 09/04/16 09/04/16 09/04/16 03:31 03:31 05:42 WBC RBC Hgb 9.7 L D Hct MCV 72 L MCH 23 L MCHC RDW 17.5 H Plt Count Lymph % (Auto) 11.1 L [place] % (Auto) Lymph # [place] # Seg Neutrophils % 84.3 H Seg Neuts % (Manual) Lymphocytes % (Manual) Monocytes % (Manual) Eosinophils % (Manual) Basophils % (Manual) Nucleated RBC % Seg Neutrophils # 8.9 H Seg Neutrophils # Man Lymphocytes # (Manual) Monocytes # (Manual) Eosinophils # (Manual) PT INR Fibrinogen dRVVT Confirm Interp Factor V Activity POC ABG pH POC ABG pCO2 POC ABG pO2 Sodium 135 L Potassium 2.9 L* Chloride 97.2 L Carbon Dioxide 19 L BUN Creatinine 1.7 H Glucose 170 H POC Glucose 152 H Lactic Acid Calcium Phosphorus Magnesium Direct Bilirubin ALT Alkaline Phosphatase Troponin T C-Reactive Protein Total Protein Albumin Triglycerides 160 H Cholesterol LDL Cholesterol Direct HDL Cholesterol 31 L Urine WBC (Auto) Urine Creatinine Urine Total Protein Vancomycin Trough Rheumatoid Factor Complement C4 Miscellaneous Test Crossmatch 09/04/16 09/04/16 09/04/16 11:34 17:46 23:29 WBC RBC Hgb Hct MCV MCH MCHC RDW Plt Count Lymph % (Auto) [place] % (Auto) Lymph # [place] # Seg Neutrophils % Seg Neuts % (Manual) Lymphocytes % (Manual) Monocytes % (Manual) Eosinophils % (Manual) Basophils % (Manual) Nucleated RBC % Seg Neutrophils # Seg Neutrophils # Man Lymphocytes # (Manual) Monocytes # (Manual) Eosinophils # (Manual) PT INR Fibrinogen dRVVT Confirm Interp Factor V Activity POC ABG pH POC ABG pCO2 POC ABG pO2 Sodium Potassium Chloride Carbon Dioxide BUN Creatinine Glucose POC Glucose 165 H 210 H 139 H Lactic Acid Calcium Phosphorus Magnesium Direct Bilirubin ALT Alkaline Phosphatase Troponin T C-Reactive Protein Total Protein Albumin Triglycerides Cholesterol LDL Cholesterol Direct HDL Cholesterol Urine WBC (Auto) Urine Creatinine Urine Total Protein Vancomycin Trough Rheumatoid Factor Complement C4 Miscellaneous Test Crossmatch 09/05/16 09/05/16 09/05/16 04:05 04:05 05:38 WBC RBC Hgb Hct MCV 76 L D MCH 23 L MCHC RDW 17.8 H Plt Count Lymph % (Auto) [place] % (Auto) Lymph # [place] # Seg Neutrophils % Seg Neuts % (Manual) Lymphocytes % (Manual) Monocytes % (Manual) Eosinophils % (Manual) Basophils % (Manual) Nucleated RBC % Seg Neutrophils # Seg Neutrophils # Man Lymphocytes # (Manual) Monocytes # (Manual) Eosinophils # (Manual) PT INR Fibrinogen dRVVT Confirm Interp Factor V Activity POC ABG pH POC ABG pCO2 POC ABG pO2 Sodium 134 L Potassium Chloride Carbon Dioxide 18 L BUN Creatinine 1.8 H Glucose 192 H POC Glucose 175 H Lactic Acid Calcium Phosphorus Magnesium Direct Bilirubin ALT Alkaline Phosphatase Troponin T C-Reactive Protein Total Protein Albumin Triglycerides Cholesterol LDL Cholesterol Direct HDL Cholesterol Urine WBC (Auto) Urine Creatinine Urine Total Protein Vancomycin Trough Rheumatoid Factor Complement C4 Miscellaneous Test Crossmatch 09/05/16 09/05/16 09/05/16 11:38 17:48 23:22 WBC RBC Hgb Hct MCV MCH MCHC RDW Plt Count Lymph % (Auto) [place] % (Auto) Lymph # [place] # Seg Neutrophils % Seg Neuts % (Manual) Lymphocytes % (Manual) Monocytes % (Manual) Eosinophils % (Manual) Basophils % (Manual) Nucleated RBC % Seg Neutrophils # Seg Neutrophils # Man Lymphocytes # (Manual) Monocytes # (Manual) Eosinophils # (Manual) PT INR Fibrinogen dRVVT Confirm Interp Factor V Activity POC ABG pH POC ABG pCO2 POC ABG pO2 Sodium Potassium Chloride Carbon Dioxide BUN Creatinine Glucose POC Glucose 164 H 186 H 195 H Lactic Acid Calcium Phosphorus Magnesium Direct Bilirubin ALT Alkaline Phosphatase Troponin T C-Reactive Protein Total Protein Albumin Triglycerides Cholesterol LDL Cholesterol Direct HDL Cholesterol Urine WBC (Auto) Urine Creatinine Urine Total Protein Vancomycin Trough Rheumatoid Factor Complement C4 Miscellaneous Test Crossmatch 09/06/16 09/06/16 09/06/16 04:12 05:59 07:32 WBC RBC Hgb Hct MCV MCH MCHC RDW Plt Count Lymph % (Auto) [place] % (Auto) Lymph # [place] # Seg Neutrophils % Seg Neuts % (Manual) Lymphocytes % (Manual) Monocytes % (Manual) Eosinophils % (Manual) Basophils % (Manual) Nucleated RBC % Seg Neutrophils # Seg Neutrophils # Man Lymphocytes # (Manual) Monocytes # (Manual) Eosinophils # (Manual) PT INR Fibrinogen dRVVT Confirm Interp Factor V Activity POC ABG pH 7.514 H POC ABG pCO2 29.1 L POC ABG pO2 72 L Sodium 133 L Potassium 3.4 L Chloride 94.9 L Carbon Dioxide 19 L BUN 30 H Creatinine 2.1 H Glucose 139 H POC Glucose 146 H Lactic Acid Calcium Phosphorus Magnesium Direct Bilirubin ALT Alkaline Phosphatase Troponin T C-Reactive Protein Total Protein Albumin Triglycerides Cholesterol LDL Cholesterol Direct HDL Cholesterol Urine WBC (Auto) Urine Creatinine Urine Total Protein Vancomycin Trough Rheumatoid Factor Complement C4 Miscellaneous Test Crossmatch 09/06/16 09/06/16 09/06/16 11:57 17:58 19:02 WBC RBC Hgb Hct MCV MCH MCHC RDW Plt Count Lymph % (Auto) [place] % (Auto) Lymph # [place] # Seg Neutrophils % Seg Neuts % (Manual) Lymphocytes % (Manual) Monocytes % (Manual) Eosinophils % (Manual) Basophils % (Manual) Nucleated RBC % Seg Neutrophils # Seg Neutrophils # Man Lymphocytes # (Manual) Monocytes # (Manual) Eosinophils # (Manual) PT INR Fibrinogen dRVVT Confirm Interp Factor V Activity POC ABG pH 7.465 H POC ABG pCO2 32.0 L POC ABG pO2 Sodium Potassium Chloride Carbon Dioxide BUN Creatinine Glucose POC Glucose 165 H 160 H Lactic Acid Calcium Phosphorus Magnesium Direct Bilirubin ALT Alkaline Phosphatase Troponin T C-Reactive Protein Total Protein Albumin Triglycerides Cholesterol LDL Cholesterol Direct HDL Cholesterol Urine WBC (Auto) Urine Creatinine Urine Total Protein Vancomycin Trough Rheumatoid Factor Complement C4 Miscellaneous Test Crossmatch 09/06/16 09/07/16 09/07/16 23:45 02:47 02:47 WBC RBC Hgb Hct MCV MCH MCHC RDW Plt Count Lymph % (Auto) [place] % (Auto) Lymph # [place] # Seg Neutrophils % Seg Neuts % (Manual) Lymphocytes % (Manual) Monocytes % (Manual) Eosinophils % (Manual) Basophils % (Manual) Nucleated RBC % Seg Neutrophils # Seg Neutrophils # Man Lymphocytes # (Manual) Monocytes # (Manual) Eosinophils # (Manual) PT INR Fibrinogen dRVVT Confirm Interp Factor V Activity POC ABG pH POC ABG pCO2 POC ABG pO2 Sodium Potassium Chloride Carbon Dioxide BUN Creatinine Glucose POC Glucose 204 H Lactic Acid Calcium Phosphorus Magnesium Direct Bilirubin ALT Alkaline Phosphatase Troponin T C-Reactive Protein Total Protein Albumin Triglycerides Cholesterol LDL Cholesterol Direct HDL Cholesterol Urine WBC (Auto) 68.0 H Urine Creatinine 106.1 H Urine Total Protein Vancomycin Trough Rheumatoid Factor Complement C4 Miscellaneous Test Crossmatch 09/07/16 09/07/16 09/07/16 04:50 06:19 06:39 WBC RBC Hgb Hct MCV MCH MCHC RDW Plt Count Lymph % (Auto) [place] % (Auto) Lymph # [place] # Seg Neutrophils % Seg Neuts % (Manual) Lymphocytes % (Manual) Monocytes % (Manual) Eosinophils % (Manual) Basophils % (Manual) Nucleated RBC % Seg Neutrophils # Seg Neutrophils # Man Lymphocytes # (Manual) Monocytes # (Manual) Eosinophils # (Manual) PT INR Fibrinogen dRVVT Confirm Interp Factor V Activity POC ABG pH 7.457 H POC ABG pCO2 32.1 L POC ABG pO2 76 L Sodium 132 L Potassium Chloride 94.7 L Carbon Dioxide BUN 53 H Creatinine 2.9 H Glucose 151 H POC Glucose 149 H Lactic Acid Calcium Phosphorus Magnesium Direct Bilirubin ALT Alkaline Phosphatase Troponin T C-Reactive Protein Total Protein Albumin Triglycerides Cholesterol LDL Cholesterol Direct HDL Cholesterol Urine WBC (Auto) Urine Creatinine Urine Total Protein Vancomycin Trough Rheumatoid Factor Complement C4 Miscellaneous Test Crossmatch 09/07/16 09/07/16 09/07/16 09:20 11:43 11:43 WBC 19.4 H RBC Hgb 8.3 L Hct 26.4 L D MCV 72 L D MCH 22 L MCHC RDW 17.9 H Plt Count Lymph % (Auto) 8.5 L [place] % (Auto) Lymph # [place] # 1.0 H Seg Neutrophils % 85.8 H Seg Neuts % (Manual) Lymphocytes % (Manual) Monocytes % (Manual) Eosinophils % (Manual) Basophils % (Manual) Nucleated RBC % Seg Neutrophils # 16.6 H Seg Neutrophils # Man Lymphocytes # (Manual) Monocytes # (Manual) Eosinophils # (Manual) PT INR Fibrinogen dRVVT Confirm Interp Factor V Activity POC ABG pH POC ABG pCO2 POC ABG pO2 Sodium 134 L Potassium Chloride 97.2 L Carbon Dioxide 20 L BUN 58 H Creatinine 2.9 H Glucose 147 H POC Glucose Lactic Acid Calcium Phosphorus 2.40 L Magnesium 2.40 H Direct Bilirubin ALT Alkaline Phosphatase Troponin T C-Reactive Protein Total Protein 5.8 L Albumin 2.2 L Triglycerides Cholesterol LDL Cholesterol Direct HDL Cholesterol Urine WBC (Auto) Urine Creatinine Urine Total Protein Vancomycin Trough Rheumatoid Factor Complement C4 58 H Miscellaneous Test Crossmatch 09/07/16 09/07/16 09/07/16 11:50 16:00 17:31 WBC RBC Hgb Hct MCV MCH MCHC RDW Plt Count Lymph % (Auto) [place] % (Auto) Lymph # [place] # Seg Neutrophils % Seg Neuts % (Manual) Lymphocytes % (Manual) Monocytes % (Manual) Eosinophils % (Manual) Basophils % (Manual) Nucleated RBC % Seg Neutrophils # Seg Neutrophils # Man Lymphocytes # (Manual) Monocytes # (Manual) Eosinophils # (Manual) PT INR Fibrinogen dRVVT Confirm Interp Factor V Activity POC ABG pH POC ABG pCO2 POC ABG pO2 158 H Sodium Potassium Chloride Carbon Dioxide BUN Creatinine Glucose POC Glucose 175 H Lactic Acid Calcium Phosphorus Magnesium Direct Bilirubin ALT Alkaline Phosphatase Troponin T C-Reactive Protein Total Protein Albumin Triglycerides Cholesterol LDL Cholesterol Direct HDL Cholesterol Urine WBC (Auto) Urine Creatinine 66.3 H Urine Total Protein Vancomycin Trough Rheumatoid Factor Complement C4 Miscellaneous Test Crossmatch 09/07/16 09/08/16 09/08/16 23:50 05:46 06:18 WBC 17.8 H RBC 3.58 L Hgb 8.1 L Hct 25.5 L MCV 71 L MCH 23 L MCHC RDW 18.4 H Plt Count Lymph % (Auto) [place] % (Auto) Lymph # [place] # Seg Neutrophils % Seg Neuts % (Manual) 92.0 H Lymphocytes % (Manual) 6.0 L Monocytes % (Manual) Eosinophils % (Manual) Basophils % (Manual) Nucleated RBC % Seg Neutrophils # Seg Neutrophils # Man 16.4 H Lymphocytes # (Manual) 1.1 L Monocytes # (Manual) Eosinophils # (Manual) PT INR Fibrinogen dRVVT Confirm Interp Factor V Activity POC ABG pH POC ABG pCO2 34.3 L POC ABG pO2 71 L Sodium Potassium Chloride Carbon Dioxide BUN Creatinine Glucose POC Glucose 216 H Lactic Acid Calcium Phosphorus Magnesium Direct Bilirubin ALT Alkaline Phosphatase Troponin T C-Reactive Protein Total Protein Albumin Triglycerides Cholesterol LDL Cholesterol Direct HDL Cholesterol Urine WBC (Auto) Urine Creatinine Urine Total Protein Vancomycin Trough Rheumatoid Factor Complement C4 Miscellaneous Test Crossmatch 09/08/16 09/08/16 09/08/16 06:18 06:51 10:55 WBC RBC Hgb Hct MCV MCH MCHC RDW Plt Count Lymph % (Auto) [place] % (Auto) Lymph # [place] # Seg Neutrophils % Seg Neuts % (Manual) Lymphocytes % (Manual) Monocytes % (Manual) Eosinophils % (Manual) Basophils % (Manual) Nucleated RBC % Seg Neutrophils # Seg Neutrophils # Man Lymphocytes # (Manual) Monocytes # (Manual) Eosinophils # (Manual) PT INR Fibrinogen dRVVT Confirm Interp Factor V Activity POC ABG pH POC ABG pCO2 POC ABG pO2 Sodium 133 L Potassium Chloride 96.9 L Carbon Dioxide 20 L BUN 63 H Creatinine 2.7 H Glucose 195 H POC Glucose 204 H 169 H Lactic Acid Calcium Phosphorus Magnesium Direct Bilirubin ALT Alkaline Phosphatase Troponin T C-Reactive Protein Total Protein Albumin Triglycerides Cholesterol LDL Cholesterol Direct HDL Cholesterol Urine WBC (Auto) Urine Creatinine Urine Total Protein Vancomycin Trough Rheumatoid Factor Complement C4 Miscellaneous Test Crossmatch 09/08/16 09/08/16 09/08/16 11:48 11:48 11:48 WBC RBC Hgb Hct MCV MCH MCHC RDW Plt Count Lymph % (Auto) [place] % (Auto) Lymph # [place] # Seg Neutrophils % Seg Neuts % (Manual) Lymphocytes % (Manual) Monocytes % (Manual) Eosinophils % (Manual) Basophils % (Manual) Nucleated RBC % Seg Neutrophils # Seg Neutrophils # Man Lymphocytes # (Manual) Monocytes # (Manual) Eosinophils # (Manual) PT INR Fibrinogen 750 H dRVVT Confirm Interp Factor V Activity POC ABG pH POC ABG pCO2 POC ABG pO2 Sodium Potassium Chloride Carbon Dioxide BUN Creatinine Glucose POC Glucose Lactic Acid Calcium Phosphorus Magnesium Direct Bilirubin ALT Alkaline Phosphatase Troponin T C-Reactive Protein 15.70 H Total Protein Albumin Triglycerides Cholesterol LDL Cholesterol Direct HDL Cholesterol Urine WBC (Auto) Urine Creatinine Urine Total Protein Vancomycin Trough Rheumatoid Factor 24 H Complement C4 Miscellaneous Test Crossmatch 09/08/16 09/08/16 09/09/16 15:35 18:25 00:24 WBC RBC Hgb Hct MCV MCH MCHC RDW Plt Count Lymph % (Auto) [place] % (Auto) Lymph # [place] # Seg Neutrophils % Seg Neuts % (Manual) Lymphocytes % (Manual) Monocytes % (Manual) Eosinophils % (Manual) Basophils % (Manual) Nucleated RBC % Seg Neutrophils # Seg Neutrophils # Man Lymphocytes # (Manual) Monocytes # (Manual) Eosinophils # (Manual) PT INR Fibrinogen dRVVT Confirm Interp Factor V Activity 182 H POC ABG pH POC ABG pCO2 POC ABG pO2 Sodium Potassium Chloride Carbon Dioxide BUN Creatinine Glucose POC Glucose 184 H 216 H Lactic Acid Calcium Phosphorus Magnesium Direct Bilirubin ALT Alkaline Phosphatase Troponin T C-Reactive Protein Total Protein Albumin Triglycerides Cholesterol LDL Cholesterol Direct HDL Cholesterol Urine WBC (Auto) Urine Creatinine Urine Total Protein Vancomycin Trough Rheumatoid Factor Complement C4 Miscellaneous Test Crossmatch 09/09/16 09/09/16 09/09/16 03:00 03:00 04:04 WBC 27.9 H RBC Hgb 8.7 L Hct 28.1 L MCV 72 L MCH 22 L MCHC RDW 18.4 H Plt Count 485 H Lymph % (Auto) [place] % (Auto) Lymph # [place] # Seg Neutrophils % Seg Neuts % (Manual) 77.0 H Lymphocytes % (Manual) 9.0 L Monocytes % (Manual) Eosinophils % (Manual) Basophils % (Manual) Nucleated RBC % Seg Neutrophils # Seg Neutrophils # Man 21.5 H Lymphocytes # (Manual) Monocytes # (Manual) 2.0 H Eosinophils # (Manual) PT INR Fibrinogen dRVVT Confirm Interp Factor V Activity POC ABG pH POC ABG pCO2 POC ABG pO2 121 H Sodium 135 L Potassium Chloride 96.3 L Carbon Dioxide 21 L BUN 83 H Creatinine 3.0 H Glucose 135 H POC Glucose Lactic Acid Calcium Phosphorus Magnesium Direct Bilirubin ALT Alkaline Phosphatase Troponin T C-Reactive Protein Total Protein Albumin Triglycerides Cholesterol LDL Cholesterol Direct HDL Cholesterol Urine WBC (Auto) Urine Creatinine Urine Total Protein Vancomycin Trough Rheumatoid Factor Complement C4 Miscellaneous Test Crossmatch 09/09/16 09/09/16 09/09/16 05:41 11:55 14:13 WBC RBC Hgb Hct MCV MCH MCHC RDW Plt Count Lymph % (Auto) [place] % (Auto) Lymph # [place] # Seg Neutrophils % Seg Neuts % (Manual) Lymphocytes % (Manual) Monocytes % (Manual) Eosinophils % (Manual) Basophils % (Manual) Nucleated RBC % Seg Neutrophils # Seg Neutrophils # Man Lymphocytes # (Manual) Monocytes # (Manual) Eosinophils # (Manual) PT INR Fibrinogen dRVVT Confirm Interp Factor V Activity POC ABG pH POC ABG pCO2 POC ABG pO2 Sodium Potassium Chloride Carbon Dioxide BUN Creatinine Glucose POC Glucose 155 H 186 H Lactic Acid Calcium Phosphorus Magnesium Direct Bilirubin ALT Alkaline Phosphatase Troponin T C-Reactive Protein Total Protein Albumin Triglycerides Cholesterol LDL Cholesterol Direct HDL Cholesterol Urine WBC (Auto) 25.0 H Urine Creatinine Urine Total Protein Vancomycin Trough Rheumatoid Factor Complement C4 Miscellaneous Test Crossmatch 09/09/16 09/09/16 09/10/16 17:33 23:13 05:09 WBC RBC Hgb Hct MCV MCH MCHC RDW Plt Count Lymph % (Auto) [place] % (Auto) Lymph # [place] # Seg Neutrophils % Seg Neuts % (Manual) Lymphocytes % (Manual) Monocytes % (Manual) Eosinophils % (Manual) Basophils % (Manual) Nucleated RBC % Seg Neutrophils # Seg Neutrophils # Man Lymphocytes # (Manual) Monocytes # (Manual) Eosinophils # (Manual) PT INR Fibrinogen dRVVT Confirm Interp Factor V Activity POC ABG pH POC ABG pCO2 POC ABG pO2 74 L Sodium Potassium Chloride Carbon Dioxide BUN Creatinine Glucose POC Glucose 211 H 215 H Lactic Acid Calcium Phosphorus Magnesium Direct Bilirubin ALT Alkaline Phosphatase Troponin T C-Reactive Protein Total Protein Albumin Triglycerides Cholesterol LDL Cholesterol Direct HDL Cholesterol Urine WBC (Auto) Urine Creatinine Urine Total Protein Vancomycin Trough Rheumatoid Factor Complement C4 Miscellaneous Test Crossmatch 09/10/16 09/10/16 09/10/16 05:17 05:17 11:31 WBC 15.8 H RBC 3.25 L Hgb 7.3 L Hct 22.9 L MCV 71 L MCH 23 L MCHC RDW 18.4 H Plt Count Lymph % (Auto) [place] % (Auto) Lymph # [place] # Seg Neutrophils % Seg Neuts % (Manual) 91.0 H Lymphocytes % (Manual) 4.0 L Monocytes % (Manual) Eosinophils % (Manual) Basophils % (Manual) Nucleated RBC % Seg Neutrophils # Seg Neutrophils # Man 14.4 H Lymphocytes # (Manual) 0.6 L Monocytes # (Manual) Eosinophils # (Manual) PT INR Fibrinogen dRVVT Confirm Interp Factor V Activity POC ABG pH POC ABG pCO2 POC ABG pO2 Sodium Potassium Chloride Carbon Dioxide 21 L BUN 93 H Creatinine 2.9 H Glucose 146 H POC Glucose 188 H Lactic Acid Calcium 8.1 L Phosphorus Magnesium Direct Bilirubin ALT Alkaline Phosphatase Troponin T C-Reactive Protein Total Protein Albumin Triglycerides Cholesterol LDL Cholesterol Direct HDL Cholesterol Urine WBC (Auto) Urine Creatinine Urine Total Protein Vancomycin Trough Rheumatoid Factor Complement C4 Miscellaneous Test Crossmatch 09/10/16 09/10/16 09/10/16 13:17 17:20 23:32 WBC RBC Hgb Hct MCV MCH MCHC RDW Plt Count Lymph % (Auto) [place] % (Auto) Lymph # [place] # Seg Neutrophils % Seg Neuts % (Manual) Lymphocytes % (Manual) Monocytes % (Manual) Eosinophils % (Manual) Basophils % (Manual) Nucleated RBC % Seg Neutrophils # Seg Neutrophils # Man Lymphocytes # (Manual) Monocytes # (Manual) Eosinophils # (Manual) PT INR Fibrinogen dRVVT Confirm Interp Factor V Activity POC ABG pH POC ABG pCO2 POC ABG pO2 Sodium Potassium Chloride Carbon Dioxide BUN Creatinine Glucose POC Glucose 199 H 186 H Lactic Acid Calcium Phosphorus Magnesium Direct Bilirubin ALT Alkaline Phosphatase Troponin T C-Reactive Protein Total Protein Albumin Triglycerides Cholesterol LDL Cholesterol Direct HDL Cholesterol Urine WBC (Auto) Urine Creatinine Urine Total Protein Vancomycin Trough Rheumatoid Factor Complement C4 Miscellaneous Test Crossmatch See Detail 09/11/16 09/11/16 09/11/16 05:10 05:10 05:17 WBC 28.4 H RBC Hgb 9.2 L Hct 29.3 L D MCV 73 L MCH 23 L MCHC RDW 18.9 H Plt Count 452 H Lymph % (Auto) [place] % (Auto) Lymph # [place] # Seg Neutrophils % Seg Neuts % (Manual) 89.5 H Lymphocytes % (Manual) 2.0 L Monocytes % (Manual) Eosinophils % (Manual) Basophils % (Manual) Nucleated RBC % Seg Neutrophils # Seg Neutrophils # Man 25.4 H Lymphocytes # (Manual) 0.6 L Monocytes # (Manual) 1.3 H Eosinophils # (Manual) PT INR Fibrinogen dRVVT Confirm Interp Factor V Activity POC ABG pH POC ABG pCO2 POC ABG pO2 Sodium 136 L Potassium Chloride Carbon Dioxide 18 L BUN 107 H Creatinine 2.6 H Glucose 187 H POC Glucose 230 H Lactic Acid Calcium 8.3 L Phosphorus Magnesium Direct Bilirubin ALT Alkaline Phosphatase Troponin T C-Reactive Protein Total Protein Albumin Triglycerides Cholesterol LDL Cholesterol Direct HDL Cholesterol Urine WBC (Auto) Urine Creatinine Urine Total Protein Vancomycin Trough Rheumatoid Factor Complement C4 Miscellaneous Test Crossmatch 09/11/16 09/11/16 09/11/16 05:55 12:02 17:32 WBC RBC Hgb Hct MCV MCH MCHC RDW Plt Count Lymph % (Auto) [place] % (Auto) Lymph # [place] # Seg Neutrophils % Seg Neuts % (Manual) Lymphocytes % (Manual) Monocytes % (Manual) Eosinophils % (Manual) Basophils % (Manual) Nucleated RBC % Seg Neutrophils # Seg Neutrophils # Man Lymphocytes # (Manual) Monocytes # (Manual) Eosinophils # (Manual) PT INR Fibrinogen dRVVT Confirm Interp Factor V Activity POC ABG pH POC ABG pCO2 33.8 L POC ABG pO2 Sodium Potassium Chloride Carbon Dioxide BUN Creatinine Glucose POC Glucose 191 H 239 H Lactic Acid Calcium Phosphorus Magnesium Direct Bilirubin ALT Alkaline Phosphatase Troponin T C-Reactive Protein Total Protein Albumin Triglycerides Cholesterol LDL Cholesterol Direct HDL Cholesterol Urine WBC (Auto) Urine Creatinine Urine Total Protein Vancomycin Trough Rheumatoid Factor Complement C4 Miscellaneous Test Crossmatch 09/11/16 09/12/16 09/12/16 23:52 05:09 05:32 WBC RBC Hgb Hct MCV MCH MCHC RDW Plt Count Lymph % (Auto) [place] % (Auto) Lymph # [place] # Seg Neutrophils % Seg Neuts % (Manual) Lymphocytes % (Manual) Monocytes % (Manual) Eosinophils % (Manual) Basophils % (Manual) Nucleated RBC % Seg Neutrophils # Seg Neutrophils # Man Lymphocytes # (Manual) Monocytes # (Manual) Eosinophils # (Manual) PT INR Fibrinogen dRVVT Confirm Interp Factor V Activity POC ABG pH POC ABG pCO2 34.6 L POC ABG pO2 Sodium Potassium Chloride Carbon Dioxide BUN Creatinine Glucose POC Glucose 265 H 184 H Lactic Acid Calcium Phosphorus Magnesium Direct Bilirubin ALT Alkaline Phosphatase Troponin T C-Reactive Protein Total Protein Albumin Triglycerides Cholesterol LDL Cholesterol Direct HDL Cholesterol Urine WBC (Auto) Urine Creatinine Urine Total Protein Vancomycin Trough Rheumatoid Factor Complement C4 Miscellaneous Test Crossmatch 09/12/16 09/12/16 09/12/16 06:45 06:45 07:22 WBC 31.7 H RBC 3.54 L Hgb 8.3 L Hct 25.9 L MCV 73 L MCH 23 L MCHC RDW 18.9 H Plt Count Lymph % (Auto) [place] % (Auto) Lymph # [place] # Seg Neutrophils % Seg Neuts % (Manual) 88.5 H Lymphocytes % (Manual) 4.5 L Monocytes % (Manual) Eosinophils % (Manual) Basophils % (Manual) Nucleated RBC % Seg Neutrophils # Seg Neutrophils # Man 28.1 H Lymphocytes # (Manual) Monocytes # (Manual) 1.0 H Eosinophils # (Manual) PT INR Fibrinogen dRVVT Confirm Interp Factor V Activity POC ABG pH POC ABG pCO2 POC ABG pO2 Sodium Potassium Chloride Carbon Dioxide 20 L BUN 115 H Creatinine 2.7 H Glucose 165 H POC Glucose Lactic Acid Calcium 8.0 L Phosphorus Magnesium Direct Bilirubin ALT Alkaline Phosphatase Troponin T C-Reactive Protein Total Protein Albumin Triglycerides 217 H Cholesterol LDL Cholesterol Direct HDL Cholesterol Urine WBC (Auto) Urine Creatinine Urine Total Protein Vancomycin Trough Rheumatoid Factor Complement C4 Miscellaneous Test Crossmatch 09/12/16 09/12/16 09/12/16 07:22 09:59 12:21 WBC RBC Hgb Hct MCV MCH MCHC RDW Plt Count Lymph % (Auto) [place] % (Auto) Lymph # [place] # Seg Neutrophils % Seg Neuts % (Manual) Lymphocytes % (Manual) Monocytes % (Manual) Eosinophils % (Manual) Basophils % (Manual) Nucleated RBC % Seg Neutrophils # Seg Neutrophils # Man Lymphocytes # (Manual) Monocytes # (Manual) Eosinophils # (Manual) PT INR Fibrinogen dRVVT Confirm Interp Positive H Factor V Activity POC ABG pH POC ABG pCO2 POC ABG pO2 Sodium Potassium Chloride Carbon Dioxide BUN Creatinine Glucose POC Glucose 224 H Lactic Acid Calcium Phosphorus Magnesium Direct Bilirubin ALT Alkaline Phosphatase Troponin T C-Reactive Protein 1.70 H Total Protein Albumin Triglycerides Cholesterol LDL Cholesterol Direct HDL Cholesterol Urine WBC (Auto) Urine Creatinine Urine Total Protein Vancomycin Trough Rheumatoid Factor Complement C4 Miscellaneous Test Crossmatch 09/12/16 09/12/16 09/13/16 16:51 23:28 04:00 WBC 45.0 H* RBC Hgb 9.4 L Hct MCV 75 L MCH 23 L MCHC RDW 19.0 H Plt Count 470 H Lymph % (Auto) [place] % (Auto) Lymph # [place] # Seg Neutrophils % Seg Neuts % (Manual) 89.0 H Lymphocytes % (Manual) 5.0 L Monocytes % (Manual) Eosinophils % (Manual) Basophils % (Manual) Nucleated RBC % Seg Neutrophils # Seg Neutrophils # Man 40.1 H Lymphocytes # (Manual) Monocytes # (Manual) Eosinophils # (Manual) PT INR Fibrinogen dRVVT Confirm Interp Factor V Activity POC ABG pH POC ABG pCO2 POC ABG pO2 Sodium Potassium Chloride Carbon Dioxide BUN Creatinine Glucose POC Glucose 169 H 150 H Lactic Acid Calcium Phosphorus Magnesium Direct Bilirubin ALT Alkaline Phosphatase Troponin T C-Reactive Protein Total Protein Albumin Triglycerides Cholesterol LDL Cholesterol Direct HDL Cholesterol Urine WBC (Auto) Urine Creatinine Urine Total Protein Vancomycin Trough Rheumatoid Factor Complement C4 Miscellaneous Test Crossmatch 09/13/16 09/13/16 09/13/16 04:00 11:26 17:31 WBC RBC Hgb Hct MCV MCH MCHC RDW Plt Count Lymph % (Auto) [place] % (Auto) Lymph # [place] # Seg Neutrophils % Seg Neuts % (Manual) Lymphocytes % (Manual) Monocytes % (Manual) Eosinophils % (Manual) Basophils % (Manual) Nucleated RBC % Seg Neutrophils # Seg Neutrophils # Man Lymphocytes # (Manual) Monocytes # (Manual) Eosinophils # (Manual) PT INR Fibrinogen dRVVT Confirm Interp Factor V Activity POC ABG pH POC ABG pCO2 POC ABG pO2 Sodium Potassium Chloride Carbon Dioxide 20 L BUN 116 H Creatinine 3.0 H Glucose 172 H POC Glucose 140 H 183 H Lactic Acid Calcium Phosphorus Magnesium Direct Bilirubin ALT Alkaline Phosphatase Troponin T C-Reactive Protein Total Protein 6.2 L Albumin 2.9 L Triglycerides Cholesterol LDL Cholesterol Direct HDL Cholesterol Urine WBC (Auto) Urine Creatinine Urine Total Protein Vancomycin Trough Rheumatoid Factor Complement C4 Miscellaneous Test Crossmatch 09/13/16 09/14/16 09/14/16 23:23 04:06 04:07 WBC 29.4 H RBC Hgb 8.9 L Hct 27.3 L MCV 75 L MCH 24 L MCHC RDW 19.1 H Plt Count Lymph % (Auto) [place] % (Auto) Lymph # [place] # Seg Neutrophils % Seg Neuts % (Manual) 84.0 H Lymphocytes % (Manual) 6.0 L Monocytes % (Manual) 9.0 H Eosinophils % (Manual) Basophils % (Manual) Nucleated RBC % Seg Neutrophils # Seg Neutrophils # Man 24.7 H Lymphocytes # (Manual) Monocytes # (Manual) 2.6 H Eosinophils # (Manual) PT INR Fibrinogen dRVVT Confirm Interp Factor V Activity POC ABG pH 7.342 L POC ABG pCO2 POC ABG pO2 116 H Sodium Potassium Chloride Carbon Dioxide BUN Creatinine Glucose POC Glucose 154 H Lactic Acid Calcium Phosphorus Magnesium Direct Bilirubin ALT Alkaline Phosphatase Troponin T C-Reactive Protein Total Protein Albumin Triglycerides Cholesterol LDL Cholesterol Direct HDL Cholesterol Urine WBC (Auto) Urine Creatinine Urine Total Protein Vancomycin Trough Rheumatoid Factor Complement C4 Miscellaneous Test Crossmatch 09/14/16 09/14/16 09/14/16 04:07 05:29 12:19 WBC RBC Hgb Hct MCV MCH MCHC RDW Plt Count Lymph % (Auto) [place] % (Auto) Lymph # [place] # Seg Neutrophils % Seg Neuts % (Manual) Lymphocytes % (Manual) Monocytes % (Manual) Eosinophils % (Manual) Basophils % (Manual) Nucleated RBC % Seg Neutrophils # Seg Neutrophils # Man Lymphocytes # (Manual) Monocytes # (Manual) Eosinophils # (Manual) PT INR Fibrinogen dRVVT Confirm Interp Factor V Activity POC ABG pH POC ABG pCO2 POC ABG pO2 Sodium 136 L Potassium Chloride Carbon Dioxide 18 L BUN 121 H Creatinine 2.8 H Glucose 214 H POC Glucose 239 H 181 H Lactic Acid Calcium Phosphorus Magnesium Direct Bilirubin ALT Alkaline Phosphatase Troponin T C-Reactive Protein Total Protein Albumin Triglycerides Cholesterol LDL Cholesterol Direct HDL Cholesterol Urine WBC (Auto) Urine Creatinine Urine Total Protein Vancomycin Trough Rheumatoid Factor Complement C4 Miscellaneous Test Crossmatch 09/14/16 09/14/16 09/15/16 18:12 23:37 05:00 WBC 26.1 H RBC 3.05 L Hgb 7.2 L Hct 22.9 L MCV 75 L MCH 24 L MCHC RDW 19.0 H Plt Count Lymph % (Auto) [place] % (Auto) Lymph # [place] # Seg Neutrophils % Seg Neuts % (Manual) Lymphocytes % (Manual) Monocytes % (Manual) Eosinophils % (Manual) Basophils % (Manual) Nucleated RBC % Seg Neutrophils # Seg Neutrophils # Man Lymphocytes # (Manual) Monocytes # (Manual) Eosinophils # (Manual) PT INR Fibrinogen dRVVT Confirm Interp Factor V Activity POC ABG pH POC ABG pCO2 POC ABG pO2 Sodium Potassium Chloride Carbon Dioxide BUN Creatinine Glucose POC Glucose 266 H 154 H Lactic Acid Calcium Phosphorus Magnesium Direct Bilirubin ALT Alkaline Phosphatase Troponin T C-Reactive Protein Total Protein Albumin Triglycerides Cholesterol LDL Cholesterol Direct HDL Cholesterol Urine WBC (Auto) Urine Creatinine Urine Total Protein Vancomycin Trough Rheumatoid Factor Complement C4 Miscellaneous Test Crossmatch 09/15/16 09/15/16 09/15/16 05:00 05:17 12:45 WBC RBC Hgb Hct MCV MCH MCHC RDW Plt Count Lymph % (Auto) [place] % (Auto) Lymph # [place] # Seg Neutrophils % Seg Neuts % (Manual) Lymphocytes % (Manual) Monocytes % (Manual) Eosinophils % (Manual) Basophils % (Manual) Nucleated RBC % Seg Neutrophils # Seg Neutrophils # Man Lymphocytes # (Manual) Monocytes # (Manual) Eosinophils # (Manual) PT INR Fibrinogen dRVVT Confirm Interp Factor V Activity POC ABG pH POC ABG pCO2 POC ABG pO2 Sodium Potassium 5.2 H Chloride Carbon Dioxide 18 L BUN 139 H Creatinine 3.7 H Glucose 227 H POC Glucose 226 H 244 H Lactic Acid Calcium 8.3 L Phosphorus Magnesium Direct Bilirubin ALT Alkaline Phosphatase Troponin T C-Reactive Protein Total Protein Albumin Triglycerides Cholesterol LDL Cholesterol Direct HDL Cholesterol Urine WBC (Auto) Urine Creatinine Urine Total Protein Vancomycin Trough Rheumatoid Factor Complement C4 Miscellaneous Test Crossmatch 09/15/16 09/15/16 09/15/16 14:32 17:33 23:35 WBC RBC Hgb Hct MCV MCH MCHC RDW Plt Count Lymph % (Auto) [place] % (Auto) Lymph # [place] # Seg Neutrophils % Seg Neuts % (Manual) Lymphocytes % (Manual) Monocytes % (Manual) Eosinophils % (Manual) Basophils % (Manual) Nucleated RBC % Seg Neutrophils # Seg Neutrophils # Man Lymphocytes # (Manual) Monocytes # (Manual) Eosinophils # (Manual) PT INR Fibrinogen dRVVT Confirm Interp Factor V Activity POC ABG pH POC ABG pCO2 27.7 L POC ABG pO2 120 H Sodium Potassium Chloride Carbon Dioxide BUN Creatinine Glucose POC Glucose 232 H 167 H Lactic Acid Calcium Phosphorus Magnesium Direct Bilirubin ALT Alkaline Phosphatase Troponin T C-Reactive Protein Total Protein Albumin Triglycerides Cholesterol LDL Cholesterol Direct HDL Cholesterol Urine WBC (Auto) Urine Creatinine Urine Total Protein Vancomycin Trough Rheumatoid Factor Complement C4 Miscellaneous Test Crossmatch 09/16/16 09/16/16 09/16/16 03:58 10:27 10:27 WBC 19.0 H RBC 2.77 L Hgb 6.5 L Hct 20.9 L MCV 76 L MCH 23 L MCHC RDW 19.3 H Plt Count Lymph % (Auto) 11.0 L [place] % (Auto) Lymph # [place] # 1.1 H Seg Neutrophils % 82.5 H Seg Neuts % (Manual) Lymphocytes % (Manual) Monocytes % (Manual) Eosinophils % (Manual) Basophils % (Manual) Nucleated RBC % Seg Neutrophils # 15.7 H Seg Neutrophils # Man Lymphocytes # (Manual) Monocytes # (Manual) Eosinophils # (Manual) PT INR Fibrinogen dRVVT Confirm Interp Factor V Activity POC ABG pH POC ABG pCO2 POC ABG pO2 Sodium Potassium Chloride 109.3 H Carbon Dioxide 18 L BUN 139 H Creatinine 4.1 H Glucose 144 H POC Glucose 146 H Lactic Acid Calcium 8.1 L Phosphorus Magnesium Direct Bilirubin ALT Alkaline Phosphatase Troponin T C-Reactive Protein Total Protein Albumin Triglycerides Cholesterol LDL Cholesterol Direct HDL Cholesterol Urine WBC (Auto) Urine Creatinine Urine Total Protein Vancomycin Trough Rheumatoid Factor Complement C4 Miscellaneous Test Crossmatch 09/16/16 09/16/16 09/16/16 12:04 12:10 13:55 WBC RBC Hgb Hct MCV MCH MCHC RDW Plt Count Lymph % (Auto) [place] % (Auto) Lymph # [place] # Seg Neutrophils % Seg Neuts % (Manual) Lymphocytes % (Manual) Monocytes % (Manual) Eosinophils % (Manual) Basophils % (Manual) Nucleated RBC % Seg Neutrophils # Seg Neutrophils # Man Lymphocytes # (Manual) Monocytes # (Manual) Eosinophils # (Manual) PT INR Fibrinogen dRVVT Confirm Interp Factor V Activity POC ABG pH POC ABG pCO2 32.9 L POC ABG pO2 Sodium Potassium Chloride Carbon Dioxide BUN Creatinine Glucose POC Glucose 185 H Lactic Acid Calcium Phosphorus Magnesium Direct Bilirubin ALT Alkaline Phosphatase Troponin T C-Reactive Protein Total Protein Albumin Triglycerides Cholesterol LDL Cholesterol Direct HDL Cholesterol Urine WBC (Auto) Urine Creatinine Urine Total Protein Vancomycin Trough Rheumatoid Factor Complement C4 Miscellaneous Test Crossmatch See Detail 09/16/16 09/16/16 09/16/16 17:55 19:19 23:48 WBC RBC Hgb Hct MCV MCH MCHC RDW Plt Count Lymph % (Auto) [place] % (Auto) Lymph # [place] # Seg Neutrophils % Seg Neuts % (Manual) Lymphocytes % (Manual) Monocytes % (Manual) Eosinophils % (Manual) Basophils % (Manual) Nucleated RBC % Seg Neutrophils # Seg Neutrophils # Man Lymphocytes # (Manual) Monocytes # (Manual) Eosinophils # (Manual) PT INR Fibrinogen dRVVT Confirm Interp Factor V Activity POC ABG pH POC ABG pCO2 POC ABG pO2 Sodium Potassium Chloride Carbon Dioxide BUN Creatinine Glucose POC Glucose 222 H 107 H Lactic Acid Calcium Phosphorus Magnesium Direct Bilirubin ALT Alkaline Phosphatase Troponin T C-Reactive Protein Total Protein Albumin Triglycerides Cholesterol LDL Cholesterol Direct HDL Cholesterol Urine WBC (Auto) Urine Creatinine 47.4 H Urine Total Protein 16 H Vancomycin Trough Rheumatoid Factor Complement C4 Miscellaneous Test Crossmatch 09/17/16 09/17/16 09/17/16 03:45 03:45 04:55 WBC 19.6 H RBC 3.41 L Hgb 8.5 L Hct 26.7 L MCV 78 L MCH 25 L MCHC RDW 19.9 H Plt Count Lymph % (Auto) 9.3 L [place] % (Auto) Lymph # [place] # 1.2 H Seg Neutrophils % 83.9 H Seg Neuts % (Manual) Lymphocytes % (Manual) Monocytes % (Manual) Eosinophils % (Manual) Basophils % (Manual) Nucleated RBC % Seg Neutrophils # 16.4 H Seg Neutrophils # Man Lymphocytes # (Manual) Monocytes # (Manual) Eosinophils # (Manual) PT INR Fibrinogen dRVVT Confirm Interp Factor V Activity POC ABG pH POC ABG pCO2 POC ABG pO2 Sodium 146 H Potassium 5.1 H Chloride 110.9 H Carbon Dioxide 16 L BUN 146 H Creatinine 4.0 H Glucose 108 H POC Glucose 133 H Lactic Acid Calcium Phosphorus Magnesium 3.00 H Direct Bilirubin ALT Alkaline Phosphatase Troponin T C-Reactive Protein Total Protein Albumin Triglycerides Cholesterol LDL Cholesterol Direct HDL Cholesterol Urine WBC (Auto) Urine Creatinine Urine Total Protein Vancomycin Trough Rheumatoid Factor Complement C4 Miscellaneous Test Crossmatch 09/17/16 09/17/16 09/17/16 11:15 17:33 23:47 WBC RBC Hgb Hct MCV MCH MCHC RDW Plt Count Lymph % (Auto) [place] % (Auto) Lymph # [place] # Seg Neutrophils % Seg Neuts % (Manual) Lymphocytes % (Manual) Monocytes % (Manual) Eosinophils % (Manual) Basophils % (Manual) Nucleated RBC % Seg Neutrophils # Seg Neutrophils # Man Lymphocytes # (Manual) Monocytes # (Manual) Eosinophils # (Manual) PT INR Fibrinogen dRVVT Confirm Interp Factor V Activity POC ABG pH POC ABG pCO2 POC ABG pO2 Sodium Potassium Chloride Carbon Dioxide BUN Creatinine Glucose POC Glucose 176 H 246 H 148 H Lactic Acid Calcium Phosphorus Magnesium Direct Bilirubin ALT Alkaline Phosphatase Troponin T C-Reactive Protein Total Protein Albumin Triglycerides Cholesterol LDL Cholesterol Direct HDL Cholesterol Urine WBC (Auto) Urine Creatinine Urine Total Protein Vancomycin Trough Rheumatoid Factor Complement C4 Miscellaneous Test Crossmatch 09/18/16 09/18/16 09/18/16 05:33 08:31 08:31 WBC 18.0 H RBC 3.17 L Hgb 9.0 L Hct 25.7 L MCV MCH MCHC 35 H RDW 20.4 H Plt Count Lymph % (Auto) [place] % (Auto) Lymph # [place] # Seg Neutrophils % Seg Neuts % (Manual) Lymphocytes % (Manual) Monocytes % (Manual) Eosinophils % (Manual) Basophils % (Manual) Nucleated RBC % Seg Neutrophils # Seg Neutrophils # Man Lymphocytes # (Manual) Monocytes # (Manual) Eosinophils # (Manual) PT INR Fibrinogen dRVVT Confirm Interp Factor V Activity POC ABG pH POC ABG pCO2 POC ABG pO2 Sodium Potassium Chloride Carbon Dioxide 15 L BUN 124 H Creatinine 3.8 H Glucose POC Glucose 120 H Lactic Acid Calcium 8.1 L Phosphorus Magnesium Direct Bilirubin ALT Alkaline Phosphatase Troponin T C-Reactive Protein Total Protein Albumin Triglycerides Cholesterol LDL Cholesterol Direct HDL Cholesterol Urine WBC (Auto) Urine Creatinine Urine Total Protein Vancomycin Trough Rheumatoid Factor Complement C4 Miscellaneous Test Crossmatch 09/18/16 09/18/16 09/18/16 12:03 15:34 17:50 WBC RBC Hgb Hct MCV MCH MCHC RDW Plt Count Lymph % (Auto) [place] % (Auto) Lymph # [place] # Seg Neutrophils % Seg Neuts % (Manual) Lymphocytes % (Manual) Monocytes % (Manual) Eosinophils % (Manual) Basophils % (Manual) Nucleated RBC % Seg Neutrophils # Seg Neutrophils # Man Lymphocytes # (Manual) Monocytes # (Manual) Eosinophils # (Manual) PT INR Fibrinogen dRVVT Confirm Interp Factor V Activity POC ABG pH POC ABG pCO2 25.7 L POC ABG pO2 66 L Sodium Potassium Chloride Carbon Dioxide BUN Creatinine Glucose POC Glucose 156 H 220 H Lactic Acid Calcium Phosphorus Magnesium Direct Bilirubin ALT Alkaline Phosphatase Troponin T C-Reactive Protein Total Protein Albumin Triglycerides Cholesterol LDL Cholesterol Direct HDL Cholesterol Urine WBC (Auto) Urine Creatinine Urine Total Protein Vancomycin Trough Rheumatoid Factor Complement C4 Miscellaneous Test Crossmatch 09/19/16 09/19/16 09/19/16 06:21 09:50 09:50 WBC 17.1 H RBC 3.49 L Hgb 9.0 L Hct 28.1 L MCV MCH 26 L MCHC RDW 20.8 H Plt Count Lymph % (Auto) 11.5 L [place] % (Auto) 7.5 H Lymph # [place] # 1.3 H Seg Neutrophils % 79.8 H Seg Neuts % (Manual) Lymphocytes % (Manual) Monocytes % (Manual) Eosinophils % (Manual) Basophils % (Manual) Nucleated RBC % Seg Neutrophils # 13.7 H Seg Neutrophils # Man Lymphocytes # (Manual) Monocytes # (Manual) Eosinophils # (Manual) PT INR Fibrinogen dRVVT Confirm Interp Factor V Activity POC ABG pH POC ABG pCO2 POC ABG pO2 Sodium Potassium Chloride 108.6 H Carbon Dioxide 15 L BUN 125 H Creatinine 4.1 H Glucose 124 H POC Glucose 119 H Lactic Acid Calcium Phosphorus Magnesium Direct Bilirubin ALT Alkaline Phosphatase Troponin T C-Reactive Protein Total Protein Albumin Triglycerides Cholesterol LDL Cholesterol Direct HDL Cholesterol Urine WBC (Auto) Urine Creatinine Urine Total Protein Vancomycin Trough Rheumatoid Factor Complement C4 Miscellaneous Test Crossmatch 09/19/16 09/19/16 09/19/16 11:25 17:53 23:36 WBC RBC Hgb Hct MCV MCH MCHC RDW Plt Count Lymph % (Auto) [place] % (Auto) Lymph # [place] # Seg Neutrophils % Seg Neuts % (Manual) Lymphocytes % (Manual) Monocytes % (Manual) Eosinophils % (Manual) Basophils % (Manual) Nucleated RBC % Seg Neutrophils # Seg Neutrophils # Man Lymphocytes # (Manual) Monocytes # (Manual) Eosinophils # (Manual) PT INR Fibrinogen dRVVT Confirm Interp Factor V Activity POC ABG pH POC ABG pCO2 POC ABG pO2 Sodium Potassium Chloride Carbon Dioxide BUN Creatinine Glucose POC Glucose 160 H 245 H 121 H Lactic Acid Calcium Phosphorus Magnesium Direct Bilirubin ALT Alkaline Phosphatase Troponin T C-Reactive Protein Total Protein Albumin Triglycerides Cholesterol LDL Cholesterol Direct HDL Cholesterol Urine WBC (Auto) Urine Creatinine Urine Total Protein Vancomycin Trough Rheumatoid Factor Complement C4 Miscellaneous Test Crossmatch 09/20/16 09/20/16 09/20/16 04:10 04:10 04:10 WBC 17.0 H RBC 3.21 L Hgb 8.2 L Hct 25.5 L MCV MCH 26 L MCHC RDW 20.9 H Plt Count Lymph % (Auto) [place] % (Auto) Lymph # [place] # Seg Neutrophils % Seg Neuts % (Manual) Lymphocytes % (Manual) Monocytes % (Manual) Eosinophils % (Manual) Basophils % (Manual) Nucleated RBC % Seg Neutrophils # Seg Neutrophils # Man Lymphocytes # (Manual) Monocytes # (Manual) Eosinophils # (Manual) PT INR Fibrinogen dRVVT Confirm Interp Factor V Activity POC ABG pH POC ABG pCO2 POC ABG pO2 Sodium Potassium Chloride 111.0 H Carbon Dioxide 16 L BUN 129 H Creatinine 3.7 H Glucose 115 H POC Glucose Lactic Acid Calcium 8.2 L Phosphorus Magnesium Direct Bilirubin ALT Alkaline Phosphatase Troponin T C-Reactive Protein Total Protein Albumin Triglycerides 243 H Cholesterol LDL Cholesterol Direct HDL Cholesterol Urine WBC (Auto) Urine Creatinine Urine Total Protein Vancomycin Trough Rheumatoid Factor Complement C4 Miscellaneous Test Crossmatch 09/20/16 09/20/16 09/20/16 05:40 11:52 16:50 WBC RBC Hgb Hct MCV MCH MCHC RDW Plt Count Lymph % (Auto) [place] % (Auto) Lymph # [place] # Seg Neutrophils % Seg Neuts % (Manual) Lymphocytes % (Manual) Monocytes % (Manual) Eosinophils % (Manual) Basophils % (Manual) Nucleated RBC % Seg Neutrophils # Seg Neutrophils # Man Lymphocytes # (Manual) Monocytes # (Manual) Eosinophils # (Manual) PT INR Fibrinogen dRVVT Confirm Interp Factor V Activity POC ABG pH POC ABG pCO2 POC ABG pO2 Sodium Potassium Chloride Carbon Dioxide BUN Creatinine Glucose POC Glucose 131 H 183 H 236 H Lactic Acid Calcium Phosphorus Magnesium Direct Bilirubin ALT Alkaline Phosphatase Troponin T C-Reactive Protein Total Protein Albumin Triglycerides Cholesterol LDL Cholesterol Direct HDL Cholesterol Urine WBC (Auto) Urine Creatinine Urine Total Protein Vancomycin Trough Rheumatoid Factor Complement C4 Miscellaneous Test Crossmatch 09/20/16 09/21/16 09/21/16 23:51 03:30 04:44 WBC RBC Hgb Hct MCV MCH MCHC RDW Plt Count Lymph % (Auto) [place] % (Auto) Lymph # [place] # Seg Neutrophils % Seg Neuts % (Manual) Lymphocytes % (Manual) Monocytes % (Manual) Eosinophils % (Manual) Basophils % (Manual) Nucleated RBC % Seg Neutrophils # Seg Neutrophils # Man Lymphocytes # (Manual) Monocytes # (Manual) Eosinophils # (Manual) PT INR Fibrinogen dRVVT Confirm Interp Factor V Activity POC ABG pH POC ABG pCO2 POC ABG pO2 Sodium Potassium Chloride Carbon Dioxide BUN Creatinine Glucose POC Glucose 114 H 141 H Lactic Acid Calcium Phosphorus Magnesium 2.70 H Direct Bilirubin ALT Alkaline Phosphatase Troponin T C-Reactive Protein Total Protein Albumin Triglycerides Cholesterol LDL Cholesterol Direct HDL Cholesterol Urine WBC (Auto) Urine Creatinine Urine Total Protein Vancomycin Trough Rheumatoid Factor Complement C4 Miscellaneous Test Crossmatch 09/21/16 09/21/16 09/21/16 07:45 07:45 10:01 WBC 13.8 H RBC 2.94 L Hgb 7.5 L Hct 23.5 L MCV MCH 26 L MCHC RDW 21.2 H Plt Count Lymph % (Auto) 6.9 L [place] % (Auto) 9.4 H Lymph # 0.9 L [place] # 1.3 H Seg Neutrophils % 83.2 H Seg Neuts % (Manual) Lymphocytes % (Manual) Monocytes % (Manual) Eosinophils % (Manual) Basophils % (Manual) Nucleated RBC % Seg Neutrophils # 11.5 H Seg Neutrophils # Man Lymphocytes # (Manual) Monocytes # (Manual) Eosinophils # (Manual) PT INR Fibrinogen dRVVT Confirm Interp Factor V Activity POC ABG pH 7.308 L POC ABG pCO2 31.9 L POC ABG pO2 148 H Sodium 147 H Potassium Chloride 114.2 H Carbon Dioxide 15 L BUN 120 H Creatinine 3.9 H Glucose 156 H POC Glucose Lactic Acid Calcium 8.2 L Phosphorus Magnesium Direct Bilirubin ALT Alkaline Phosphatase Troponin T C-Reactive Protein Total Protein Albumin Triglycerides Cholesterol LDL Cholesterol Direct HDL Cholesterol Urine WBC (Auto) Urine Creatinine Urine Total Protein Vancomycin Trough Rheumatoid Factor Complement C4 Miscellaneous Test Crossmatch 09/21/16 09/21/16 09/21/16 12:00 12:03 13:00 WBC RBC Hgb Hct MCV MCH MCHC RDW Plt Count Lymph % (Auto) [place] % (Auto) Lymph # [place] # Seg Neutrophils % Seg Neuts % (Manual) Lymphocytes % (Manual) Monocytes % (Manual) Eosinophils % (Manual) Basophils % (Manual) Nucleated RBC % Seg Neutrophils # Seg Neutrophils # Man Lymphocytes # (Manual) Monocytes # (Manual) Eosinophils # (Manual) PT INR Fibrinogen dRVVT Confirm Interp Factor V Activity POC ABG pH POC ABG pCO2 POC ABG pO2 Sodium Potassium Chloride Carbon Dioxide BUN Creatinine Glucose POC Glucose 163 H Lactic Acid Calcium Phosphorus Magnesium Direct Bilirubin ALT Alkaline Phosphatase Troponin T C-Reactive Protein Total Protein Albumin Triglycerides Cholesterol LDL Cholesterol Direct HDL Cholesterol Urine WBC (Auto) Urine Creatinine 54.8 H Urine Total Protein Vancomycin Trough 2.3 L Rheumatoid Factor Complement C4 Miscellaneous Test Crossmatch 09/21/16 09/21/16 09/22/16 16:51 23:17 06:27 WBC RBC Hgb Hct MCV MCH MCHC RDW Plt Count Lymph % (Auto) [place] % (Auto) Lymph # [place] # Seg Neutrophils % Seg Neuts % (Manual) Lymphocytes % (Manual) Monocytes % (Manual) Eosinophils % (Manual) Basophils % (Manual) Nucleated RBC % Seg Neutrophils # Seg Neutrophils # Man Lymphocytes # (Manual) Monocytes # (Manual) Eosinophils # (Manual) PT INR Fibrinogen dRVVT Confirm Interp Factor V Activity POC ABG pH POC ABG pCO2 POC ABG pO2 Sodium Potassium Chloride Carbon Dioxide BUN Creatinine Glucose POC Glucose 206 H 114 H 115 H Lactic Acid Calcium Phosphorus Magnesium Direct Bilirubin ALT Alkaline Phosphatase Troponin T C-Reactive Protein Total Protein Albumin Triglycerides Cholesterol LDL Cholesterol Direct HDL Cholesterol Urine WBC (Auto) Urine Creatinine Urine Total Protein Vancomycin Trough Rheumatoid Factor Complement C4 Miscellaneous Test Crossmatch 09/22/16 09/22/16 09/22/16 07:50 07:50 12:00 WBC 17.8 H RBC 3.04 L Hgb 8.0 L Hct 24.7 L MCV MCH 26 L MCHC RDW 21.6 H Plt Count Lymph % (Auto) [place] % (Auto) Lymph # [place] # Seg Neutrophils % Seg Neuts % (Manual) Lymphocytes % (Manual) Monocytes % (Manual) Eosinophils % (Manual) Basophils % (Manual) Nucleated RBC % Seg Neutrophils # Seg Neutrophils # Man Lymphocytes # (Manual) Monocytes # (Manual) Eosinophils # (Manual) PT INR Fibrinogen dRVVT Confirm Interp Factor V Activity POC ABG pH POC ABG pCO2 POC ABG pO2 Sodium 150 H Potassium Chloride 118.2 H Carbon Dioxide 14 L BUN 111 H Creatinine 3.7 H Glucose 157 H POC Glucose 183 H Lactic Acid Calcium Phosphorus Magnesium Direct Bilirubin ALT Alkaline Phosphatase Troponin T C-Reactive Protein Total Protein Albumin Triglycerides Cholesterol LDL Cholesterol Direct HDL Cholesterol Urine WBC (Auto) Urine Creatinine Urine Total Protein Vancomycin Trough Rheumatoid Factor Complement C4 Miscellaneous Test Crossmatch 09/22/16 09/22/16 09/23/16 17:29 23:10 05:00 WBC 19.2 H RBC 3.13 L Hgb 8.0 L Hct 25.2 L MCV MCH 26 L MCHC RDW 22.1 H Plt Count Lymph % (Auto) [place] % (Auto) Lymph # [place] # Seg Neutrophils % Seg Neuts % (Manual) 92.0 H Lymphocytes % (Manual) 3.0 L Monocytes % (Manual) Eosinophils % (Manual) Basophils % (Manual) Nucleated RBC % Seg Neutrophils # Seg Neutrophils # Man 17.7 H Lymphocytes # (Manual) 0.6 L Monocytes # (Manual) Eosinophils # (Manual) PT INR Fibrinogen dRVVT Confirm Interp Factor V Activity POC ABG pH POC ABG pCO2 POC ABG pO2 Sodium Potassium Chloride Carbon Dioxide BUN Creatinine Glucose POC Glucose 197 H 169 H Lactic Acid Calcium Phosphorus Magnesium Direct Bilirubin ALT Alkaline Phosphatase Troponin T C-Reactive Protein Total Protein Albumin Triglycerides Cholesterol LDL Cholesterol Direct HDL Cholesterol Urine WBC (Auto) Urine Creatinine Urine Total Protein Vancomycin Trough Rheumatoid Factor Complement C4 Miscellaneous Test Crossmatch 09/23/16 09/23/16 09/23/16 05:00 05:00 05:10 WBC RBC Hgb Hct MCV MCH MCHC RDW Plt Count Lymph % (Auto) [place] % (Auto) Lymph # [place] # Seg Neutrophils % Seg Neuts % (Manual) Lymphocytes % (Manual) Monocytes % (Manual) Eosinophils % (Manual) Basophils % (Manual) Nucleated RBC % Seg Neutrophils # Seg Neutrophils # Man Lymphocytes # (Manual) Monocytes # (Manual) Eosinophils # (Manual) PT INR Fibrinogen dRVVT Confirm Interp Factor V Activity POC ABG pH POC ABG pCO2 POC ABG pO2 Sodium 147 H Potassium 3.2 L Chloride 115.7 H Carbon Dioxide 13 L BUN 111 H Creatinine 3.8 H Glucose 194 H POC Glucose 188 H Lactic Acid Calcium 7.3 L D Phosphorus Magnesium Direct Bilirubin ALT Alkaline Phosphatase Troponin T C-Reactive Protein 3.20 H Total Protein Albumin Triglycerides Cholesterol LDL Cholesterol Direct HDL Cholesterol Urine WBC (Auto) Urine Creatinine Urine Total Protein Vancomycin Trough Rheumatoid Factor Complement C4 Miscellaneous Test Crossmatch 09/23/16 09/23/16 09/23/16 11:37 12:29 18:01 WBC RBC Hgb Hct MCV MCH MCHC RDW Plt Count Lymph % (Auto) [place] % (Auto) Lymph # [place] # Seg Neutrophils % Seg Neuts % (Manual) Lymphocytes % (Manual) Monocytes % (Manual) Eosinophils % (Manual) Basophils % (Manual) Nucleated RBC % Seg Neutrophils # Seg Neutrophils # Man Lymphocytes # (Manual) Monocytes # (Manual) Eosinophils # (Manual) PT INR Fibrinogen dRVVT Confirm Interp Factor V Activity POC ABG pH POC ABG pCO2 18.9 L POC ABG pO2 143 H Sodium Potassium Chloride Carbon Dioxide BUN Creatinine Glucose POC Glucose 153 H 108 H Lactic Acid Calcium Phosphorus Magnesium Direct Bilirubin ALT Alkaline Phosphatase Troponin T C-Reactive Protein Total Protein Albumin Triglycerides Cholesterol LDL Cholesterol Direct HDL Cholesterol Urine WBC (Auto) Urine Creatinine Urine Total Protein Vancomycin Trough Rheumatoid Factor Complement C4 Miscellaneous Test Crossmatch 09/23/16 09/23/16 09/24/16 21:19 23:43 05:16 WBC RBC Hgb Hct MCV MCH MCHC RDW Plt Count Lymph % (Auto) [place] % (Auto) Lymph # [place] # Seg Neutrophils % Seg Neuts % (Manual) Lymphocytes % (Manual) Monocytes % (Manual) Eosinophils % (Manual) Basophils % (Manual) Nucleated RBC % Seg Neutrophils # Seg Neutrophils # Man Lymphocytes # (Manual) Monocytes # (Manual) Eosinophils # (Manual) PT INR Fibrinogen dRVVT Confirm Interp Factor V Activity POC ABG pH POC ABG pCO2 17.3 L POC ABG pO2 112 H Sodium Potassium Chloride Carbon Dioxide BUN Creatinine Glucose POC Glucose 143 H 164 H Lactic Acid Calcium Phosphorus Magnesium Direct Bilirubin ALT Alkaline Phosphatase Troponin T C-Reactive Protein Total Protein Albumin Triglycerides Cholesterol LDL Cholesterol Direct HDL Cholesterol Urine WBC (Auto) Urine Creatinine Urine Total Protein Vancomycin Trough Rheumatoid Factor Complement C4 Miscellaneous Test Crossmatch 09/24/16 09/24/16 09/24/16 05:21 11:58 17:06 WBC RBC Hgb Hct MCV MCH MCHC RDW Plt Count Lymph % (Auto) [place] % (Auto) Lymph # [place] # Seg Neutrophils % Seg Neuts % (Manual) Lymphocytes % (Manual) Monocytes % (Manual) Eosinophils % (Manual) Basophils % (Manual) Nucleated RBC % Seg Neutrophils # Seg Neutrophils # Man Lymphocytes # (Manual) Monocytes # (Manual) Eosinophils # (Manual) PT INR Fibrinogen dRVVT Confirm Interp Factor V Activity POC ABG pH POC ABG pCO2 POC ABG pO2 Sodium Potassium Chloride Carbon Dioxide 10 L BUN 103 H Creatinine 4.3 H Glucose 163 H POC Glucose 173 H 167 H Lactic Acid Calcium 6.5 L Phosphorus Magnesium Direct Bilirubin ALT Alkaline Phosphatase Troponin T C-Reactive Protein Total Protein Albumin Triglycerides Cholesterol LDL Cholesterol Direct HDL Cholesterol Urine WBC (Auto) Urine Creatinine Urine Total Protein Vancomycin Trough Rheumatoid Factor Complement C4 Miscellaneous Test Crossmatch 09/24/16 09/24/16 09/24/16 20:15 21:02 23:48 WBC RBC Hgb Hct MCV MCH MCHC RDW Plt Count Lymph % (Auto) [place] % (Auto) Lymph # [place] # Seg Neutrophils % Seg Neuts % (Manual) Lymphocytes % (Manual) Monocytes % (Manual) Eosinophils % (Manual) Basophils % (Manual) Nucleated RBC % Seg Neutrophils # Seg Neutrophils # Man Lymphocytes # (Manual) Monocytes # (Manual) Eosinophils # (Manual) PT INR Fibrinogen dRVVT Confirm Interp Factor V Activity POC ABG pH 7.288 L POC ABG pCO2 30.2 L 21.5 L POC ABG pO2 32 L 39 L Sodium Potassium Chloride Carbon Dioxide BUN Creatinine Glucose POC Glucose 109 H Lactic Acid Calcium Phosphorus Magnesium Direct Bilirubin ALT Alkaline Phosphatase Troponin T C-Reactive Protein Total Protein Albumin Triglycerides Cholesterol LDL Cholesterol Direct HDL Cholesterol Urine WBC (Auto) Urine Creatinine Urine Total Protein Vancomycin Trough Rheumatoid Factor Complement C4 Miscellaneous Test Crossmatch 09/25/16 09/25/16 09/25/16 04:20 04:20 04:20 WBC RBC 2.58 L Hgb 7.0 L Hct 21.0 L MCV MCH 27 L MCHC RDW 23.8 H Plt Count Lymph % (Auto) [place] % (Auto) Lymph # [place] # Seg Neutrophils % Seg Neuts % (Manual) Lymphocytes % (Manual) 12.0 L Monocytes % (Manual) Eosinophils % (Manual) 7.0 H Basophils % (Manual) 2.0 H Nucleated RBC % Seg Neutrophils # Seg Neutrophils # Man Lymphocytes # (Manual) 0.9 L Monocytes # (Manual) Eosinophils # (Manual) 0.5 H PT INR Fibrinogen dRVVT Confirm Interp Factor V Activity POC ABG pH POC ABG pCO2 POC ABG pO2 Sodium Potassium Chloride Carbon Dioxide 15 L BUN 72 H Creatinine 3.8 H Glucose POC Glucose Lactic Acid Calcium 6.0 L Phosphorus 4.60 H Magnesium 1.60 L Direct Bilirubin ALT Alkaline Phosphatase Troponin T C-Reactive Protein Total Protein Albumin Triglycerides Cholesterol LDL Cholesterol Direct HDL Cholesterol Urine WBC (Auto) Urine Creatinine Urine Total Protein Vancomycin Trough Rheumatoid Factor Complement C4 Miscellaneous Test Crossmatch 09/25/16 09/25/16 09/25/16 04:57 08:02 10:30 WBC RBC Hgb Hct MCV MCH MCHC RDW Plt Count Lymph % (Auto) [place] % (Auto) Lymph # [place] # Seg Neutrophils % Seg Neuts % (Manual) Lymphocytes % (Manual) Monocytes % (Manual) Eosinophils % (Manual) Basophils % (Manual) Nucleated RBC % Seg Neutrophils # Seg Neutrophils # Man Lymphocytes # (Manual) Monocytes # (Manual) Eosinophils # (Manual) PT INR Fibrinogen dRVVT Confirm Interp Factor V Activity POC ABG pH POC ABG pCO2 24.7 L POC ABG pO2 152 H Sodium Potassium Chloride Carbon Dioxide BUN Creatinine Glucose POC Glucose 113 H Lactic Acid Calcium Phosphorus Magnesium Direct Bilirubin ALT Alkaline Phosphatase Troponin T C-Reactive Protein Total Protein Albumin Triglycerides Cholesterol LDL Cholesterol Direct HDL Cholesterol Urine WBC (Auto) Urine Creatinine Urine Total Protein Vancomycin Trough Rheumatoid Factor Complement C4 Miscellaneous Test Crossmatch See Detail 09/25/16 09/25/16 09/25/16 12:05 17:44 23:47 WBC RBC Hgb Hct MCV MCH MCHC RDW Plt Count Lymph % (Auto) [place] % (Auto) Lymph # [place] # Seg Neutrophils % Seg Neuts % (Manual) Lymphocytes % (Manual) Monocytes % (Manual) Eosinophils % (Manual) Basophils % (Manual) Nucleated RBC % Seg Neutrophils # Seg Neutrophils # Man Lymphocytes # (Manual) Monocytes # (Manual) Eosinophils # (Manual) PT INR Fibrinogen dRVVT Confirm Interp Factor V Activity POC ABG pH POC ABG pCO2 POC ABG pO2 Sodium Potassium Chloride Carbon Dioxide BUN Creatinine Glucose POC Glucose 117 H 119 H 150 H Lactic Acid Calcium Phosphorus Magnesium Direct Bilirubin ALT Alkaline Phosphatase Troponin T C-Reactive Protein Total Protein Albumin Triglycerides Cholesterol LDL Cholesterol Direct HDL Cholesterol Urine WBC (Auto) Urine Creatinine Urine Total Protein Vancomycin Trough Rheumatoid Factor Complement C4 Miscellaneous Test Crossmatch 09/26/16 09/26/16 09/26/16 04:25 04:25 04:25 WBC RBC 2.65 L Hgb 7.4 L Hct 21.6 L MCV MCH MCHC RDW 22.5 H Plt Count Lymph % (Auto) [place] % (Auto) Lymph # [place] # Seg Neutrophils % Seg Neuts % (Manual) Lymphocytes % (Manual) 6.0 L Monocytes % (Manual) Eosinophils % (Manual) 11.0 H Basophils % (Manual) Nucleated RBC % Seg Neutrophils # Seg Neutrophils # Man Lymphocytes # (Manual) 0.4 L Monocytes # (Manual) Eosinophils # (Manual) 0.6 H PT INR Fibrinogen dRVVT Confirm Interp Factor V Activity POC ABG pH POC ABG pCO2 POC ABG pO2 Sodium Potassium Chloride 97.0 L Carbon Dioxide 19 L BUN 43 H Creatinine 2.6 H Glucose 130 H POC Glucose Lactic Acid 4.40 H* Calcium 6.7 L Phosphorus Magnesium Direct Bilirubin ALT Alkaline Phosphatase Troponin T C-Reactive Protein Total Protein Albumin Triglycerides Cholesterol LDL Cholesterol Direct HDL Cholesterol Urine WBC (Auto) Urine Creatinine Urine Total Protein Vancomycin Trough Rheumatoid Factor Complement C4 Miscellaneous Test Crossmatch 09/26/16 09/26/16 09/26/16 05:20 11:44 12:12 WBC RBC Hgb Hct MCV MCH MCHC RDW Plt Count Lymph % (Auto) [place] % (Auto) Lymph # [place] # Seg Neutrophils % Seg Neuts % (Manual) Lymphocytes % (Manual) Monocytes % (Manual) Eosinophils % (Manual) Basophils % (Manual) Nucleated RBC % Seg Neutrophils # Seg Neutrophils # Man Lymphocytes # (Manual) Monocytes # (Manual) Eosinophils # (Manual) PT INR Fibrinogen dRVVT Confirm Interp Factor V Activity POC ABG pH POC ABG pCO2 27.0 L POC ABG pO2 69 L Sodium Potassium Chloride Carbon Dioxide BUN Creatinine Glucose POC Glucose 121 H 128 H Lactic Acid Calcium Phosphorus Magnesium Direct Bilirubin ALT Alkaline Phosphatase Troponin T C-Reactive Protein Total Protein Albumin Triglycerides Cholesterol LDL Cholesterol Direct HDL Cholesterol Urine WBC (Auto) Urine Creatinine Urine Total Protein Vancomycin Trough Rheumatoid Factor Complement C4 Miscellaneous Test Crossmatch 09/26/16 09/26/16 09/27/16 18:31 23:40 08:20 WBC RBC Hgb Hct MCV MCH MCHC RDW Plt Count Lymph % (Auto) [place] % (Auto) Lymph # [place] # Seg Neutrophils % Seg Neuts % (Manual) Lymphocytes % (Manual) Monocytes % (Manual) Eosinophils % (Manual) Basophils % (Manual) Nucleated RBC % Seg Neutrophils # Seg Neutrophils # Man Lymphocytes # (Manual) Monocytes # (Manual) Eosinophils # (Manual) PT INR Fibrinogen dRVVT Confirm Interp Factor V Activity POC ABG pH POC ABG pCO2 POC ABG pO2 Sodium Potassium Chloride Carbon Dioxide BUN Creatinine Glucose POC Glucose 120 H 133 H Lactic Acid 4.10 H* Calcium Phosphorus Magnesium Direct Bilirubin ALT Alkaline Phosphatase Troponin T C-Reactive Protein Total Protein Albumin Triglycerides Cholesterol LDL Cholesterol Direct HDL Cholesterol Urine WBC (Auto) Urine Creatinine Urine Total Protein Vancomycin Trough Rheumatoid Factor Complement C4 Miscellaneous Test Crossmatch 09/27/16 09/27/16 09/27/16 11:23 15:00 18:15 WBC RBC Hgb Hct MCV MCH MCHC RDW Plt Count Lymph % (Auto) [place] % (Auto) Lymph # [place] # Seg Neutrophils % Seg Neuts % (Manual) Lymphocytes % (Manual) Monocytes % (Manual) Eosinophils % (Manual) Basophils % (Manual) Nucleated RBC % Seg Neutrophils # Seg Neutrophils # Man Lymphocytes # (Manual) Monocytes # (Manual) Eosinophils # (Manual) PT INR Fibrinogen dRVVT Confirm Interp Factor V Activity POC ABG pH 7.459 H POC ABG pCO2 27.1 L POC ABG pO2 140 H Sodium Potassium Chloride Carbon Dioxide BUN Creatinine Glucose POC Glucose 114 H 127 H Lactic Acid Calcium Phosphorus Magnesium Direct Bilirubin ALT Alkaline Phosphatase Troponin T C-Reactive Protein Total Protein Albumin Triglycerides Cholesterol LDL Cholesterol Direct HDL Cholesterol Urine WBC (Auto) Urine Creatinine Urine Total Protein Vancomycin Trough Rheumatoid Factor Complement C4 Miscellaneous Test Crossmatch 09/27/16 09/27/16 09/28/16 Unknown Unknown 03:45 WBC RBC 2.49 L Hgb 6.8 L Hct 20.7 L MCV MCH 27 L MCHC RDW 22.1 H Plt Count Lymph % (Auto) [place] % (Auto) Lymph # [place] # Seg Neutrophils % Seg Neuts % (Manual) 32.0 L Lymphocytes % (Manual) 12.0 L Monocytes % (Manual) 11.0 H Eosinophils % (Manual) 10.0 H Basophils % (Manual) Nucleated RBC % Seg Neutrophils # Seg Neutrophils # Man Lymphocytes # (Manual) 1.0 L Monocytes # (Manual) 0.9 H Eosinophils # (Manual) 0.8 H PT INR Fibrinogen dRVVT Confirm Interp Factor V Activity POC ABG pH POC ABG pCO2 POC ABG pO2 Sodium 135 L 135 L Potassium 3.5 L Chloride 93.6 L 94.4 L Carbon Dioxide 17 L 21 L BUN 45 H 28 H Creatinine 3.3 H 2.5 H Glucose 106 H POC Glucose Lactic Acid Calcium 7.3 L 7.1 L Phosphorus Magnesium Direct Bilirubin ALT Alkaline Phosphatase Troponin T C-Reactive Protein Total Protein Albumin Triglycerides Cholesterol LDL Cholesterol Direct HDL Cholesterol Urine WBC (Auto) Urine Creatinine Urine Total Protein Vancomycin Trough Rheumatoid Factor Complement C4 Miscellaneous Test Crossmatch 09/28/16 09/28/16 09/28/16 03:45 07:25 11:58 WBC 13.3 H RBC 3.01 L Hgb 8.4 L Hct 25.0 L MCV MCH MCHC RDW 20.5 H Plt Count 128 L Lymph % (Auto) [place] % (Auto) Lymph # [place] # Seg Neutrophils % Seg Neuts % (Manual) Lymphocytes % (Manual) 7.0 L Monocytes % (Manual) Eosinophils % (Manual) 6.0 H Basophils % (Manual) Nucleated RBC % Seg Neutrophils # Seg Neutrophils # Man Lymphocytes # (Manual) 0.9 L Monocytes # (Manual) Eosinophils # (Manual) 0.8 H PT INR Fibrinogen dRVVT Confirm Interp Factor V Activity POC ABG pH POC ABG pCO2 POC ABG pO2 Sodium Potassium Chloride Carbon Dioxide BUN Creatinine Glucose POC Glucose 121 H Lactic Acid 4.50 H* Calcium Phosphorus Magnesium Direct Bilirubin ALT Alkaline Phosphatase Troponin T C-Reactive Protein Total Protein Albumin Triglycerides Cholesterol LDL Cholesterol Direct HDL Cholesterol Urine WBC (Auto) Urine Creatinine Urine Total Protein Vancomycin Trough Rheumatoid Factor Complement C4 Miscellaneous Test Crossmatch 09/29/16 09/29/16 09/29/16 06:45 06:45 06:45 WBC 14.9 H RBC 2.74 L Hgb 7.6 L Hct 23.2 L MCV MCH MCHC RDW 20.5 H Plt Count 81 L Lymph % (Auto) [place] % (Auto) Lymph # [place] # Seg Neutrophils % Seg Neuts % (Manual) 81.0 H Lymphocytes % (Manual) 4.0 L Monocytes % (Manual) Eosinophils % (Manual) Basophils % (Manual) Nucleated RBC % Seg Neutrophils # Seg Neutrophils # Man 12.1 H Lymphocytes # (Manual) 0.6 L Monocytes # (Manual) Eosinophils # (Manual) PT INR Fibrinogen dRVVT Confirm Interp Factor V Activity POC ABG pH POC ABG pCO2 POC ABG pO2 Sodium 133 L Potassium 3.4 L Chloride 92.5 L Carbon Dioxide 21 L BUN 33 H Creatinine 3.0 H Glucose POC Glucose Lactic Acid Calcium 6.6 L Phosphorus Magnesium 1.40 L Direct Bilirubin 0.9 H ALT Alkaline Phosphatase Troponin T C-Reactive Protein Total Protein 4.3 L Albumin 1.3 L Triglycerides Cholesterol LDL Cholesterol Direct HDL Cholesterol Urine WBC (Auto) Urine Creatinine Urine Total Protein Vancomycin Trough Rheumatoid Factor Complement C4 Miscellaneous Test Crossmatch 09/29/16 09/29/16 09/30/16 17:52 20:12 00:07 WBC RBC Hgb Hct MCV MCH MCHC RDW Plt Count Lymph % (Auto) [place] % (Auto) Lymph # [place] # Seg Neutrophils % Seg Neuts % (Manual) Lymphocytes % (Manual) Monocytes % (Manual) Eosinophils % (Manual) Basophils % (Manual) Nucleated RBC % Seg Neutrophils # Seg Neutrophils # Man Lymphocytes # (Manual) Monocytes # (Manual) Eosinophils # (Manual) PT INR Fibrinogen dRVVT Confirm Interp Factor V Activity POC ABG pH POC ABG pCO2 POC ABG pO2 Sodium Potassium Chloride Carbon Dioxide BUN Creatinine Glucose POC Glucose 50 L 51 L Lactic Acid Calcium Phosphorus Magnesium Direct Bilirubin ALT Alkaline Phosphatase Troponin T 0.204 H* C-Reactive Protein Total Protein Albumin Triglycerides Cholesterol 31 L LDL Cholesterol Direct 4 L HDL Cholesterol 3 L Urine WBC (Auto) Urine Creatinine Urine Total Protein Vancomycin Trough Rheumatoid Factor Complement C4 Miscellaneous Test Crossmatch 09/30/16 09/30/16 09/30/16 01:30 05:15 06:10 WBC RBC Hgb Hct MCV MCH MCHC RDW Plt Count Lymph % (Auto) [place] % (Auto) Lymph # [place] # Seg Neutrophils % Seg Neuts % (Manual) Lymphocytes % (Manual) Monocytes % (Manual) Eosinophils % (Manual) Basophils % (Manual) Nucleated RBC % Seg Neutrophils # Seg Neutrophils # Man Lymphocytes # (Manual) Monocytes # (Manual) Eosinophils # (Manual) PT INR Fibrinogen dRVVT Confirm Interp Factor V Activity POC ABG pH POC ABG pCO2 POC ABG pO2 Sodium 133 L Potassium 3.2 L Chloride 93.2 L Carbon Dioxide 19 L BUN 36 H Creatinine 3.2 H Glucose 104 H POC Glucose 167 H 146 H Lactic Acid Calcium 6.4 L Phosphorus Magnesium 1.60 L Direct Bilirubin ALT Alkaline Phosphatase Troponin T C-Reactive Protein Total Protein Albumin Triglycerides Cholesterol LDL Cholesterol Direct HDL Cholesterol Urine WBC (Auto) Urine Creatinine Urine Total Protein Vancomycin Trough Rheumatoid Factor Complement C4 Miscellaneous Test Crossmatch 09/30/16 09/30/16 09/30/16 11:26 13:39 18:38 WBC RBC Hgb Hct MCV MCH MCHC RDW Plt Count Lymph % (Auto) [place] % (Auto) Lymph # [place] # Seg Neutrophils % Seg Neuts % (Manual) Lymphocytes % (Manual) Monocytes % (Manual) Eosinophils % (Manual) Basophils % (Manual) Nucleated RBC % Seg Neutrophils # Seg Neutrophils # Man Lymphocytes # (Manual) Monocytes # (Manual) Eosinophils # (Manual) PT INR Fibrinogen dRVVT Confirm Interp Factor V Activity POC ABG pH 7.479 H POC ABG pCO2 29.8 L POC ABG pO2 117 H Sodium Potassium Chloride Carbon Dioxide BUN Creatinine Glucose POC Glucose 140 H 122 H Lactic Acid Calcium Phosphorus Magnesium Direct Bilirubin ALT Alkaline Phosphatase Troponin T C-Reactive Protein Total Protein Albumin Triglycerides Cholesterol LDL Cholesterol Direct HDL Cholesterol Urine WBC (Auto) Urine Creatinine Urine Total Protein Vancomycin Trough Rheumatoid Factor Complement C4 Miscellaneous Test Crossmatch 10/01/16 10/01/16 10/01/16 06:00 06:00 12:37 WBC 12.6 H RBC 2.75 L Hgb 7.3 L Hct 23.3 L MCV MCH 27 L MCHC RDW 20.6 H Plt Count 72 L Lymph % (Auto) [place] % (Auto) Lymph # [place] # Seg Neutrophils % Seg Neuts % (Manual) 31.0 L Lymphocytes % (Manual) 8.0 L Monocytes % (Manual) Eosinophils % (Manual) Basophils % (Manual) Nucleated RBC % 3.0 H Seg Neutrophils # Seg Neutrophils # Man Lymphocytes # (Manual) 1.0 L Monocytes # (Manual) Eosinophils # (Manual) PT INR Fibrinogen dRVVT Confirm Interp Factor V Activity POC ABG pH POC ABG pCO2 POC ABG pO2 Sodium 127 L Potassium Chloride 86.8 L Carbon Dioxide 20 L BUN 42 H Creatinine 3.5 H Glucose POC Glucose 65 L Lactic Acid Calcium 7.0 L Phosphorus Magnesium Direct Bilirubin ALT Alkaline Phosphatase Troponin T C-Reactive Protein Total Protein Albumin Triglycerides Cholesterol LDL Cholesterol Direct HDL Cholesterol Urine WBC (Auto) Urine Creatinine Urine Total Protein Vancomycin Trough Rheumatoid Factor Complement C4 Miscellaneous Test Crossmatch 10/01/16 10/01/16 10/02/16 17:39 23:32 00:59 WBC RBC Hgb Hct MCV MCH MCHC RDW Plt Count Lymph % (Auto) [place] % (Auto) Lymph # [place] # Seg Neutrophils % Seg Neuts % (Manual) Lymphocytes % (Manual) Monocytes % (Manual) Eosinophils % (Manual) Basophils % (Manual) Nucleated RBC % Seg Neutrophils # Seg Neutrophils # Man Lymphocytes # (Manual) Monocytes # (Manual) Eosinophils # (Manual) PT INR Fibrinogen dRVVT Confirm Interp Factor V Activity POC ABG pH POC ABG pCO2 POC ABG pO2 Sodium Potassium Chloride Carbon Dioxide BUN Creatinine Glucose POC Glucose 107 H 52 L 145 H Lactic Acid Calcium Phosphorus Magnesium Direct Bilirubin ALT Alkaline Phosphatase Troponin T C-Reactive Protein Total Protein Albumin Triglycerides Cholesterol LDL Cholesterol Direct HDL Cholesterol Urine WBC (Auto) Urine Creatinine Urine Total Protein Vancomycin Trough Rheumatoid Factor Complement C4 Miscellaneous Test Crossmatch 10/02/16 10/02/16 10/02/16 10:30 10:50 10:50 WBC 14.7 H RBC 2.76 L Hgb 7.4 L Hct 23.6 L MCV MCH 27 L MCHC RDW 20.2 H Plt Count 79 L Lymph % (Auto) [place] % (Auto) Lymph # [place] # Seg Neutrophils % Seg Neuts % (Manual) 86.0 H Lymphocytes % (Manual) 6.0 L Monocytes % (Manual) Eosinophils % (Manual) Basophils % (Manual) Nucleated RBC % Seg Neutrophils # Seg Neutrophils # Man 12.6 H Lymphocytes # (Manual) 0.9 L Monocytes # (Manual) Eosinophils # (Manual) PT INR Fibrinogen dRVVT Confirm Interp Factor V Activity POC ABG pH 7.486 H POC ABG pCO2 30.1 L POC ABG pO2 108 H Sodium 131 L Potassium 3.4 L Chloride 89.9 L Carbon Dioxide BUN 26 H Creatinine 2.6 H Glucose POC Glucose Lactic Acid Calcium 7.0 L Phosphorus Magnesium Direct Bilirubin ALT Alkaline Phosphatase Troponin T C-Reactive Protein Total Protein Albumin Triglycerides Cholesterol LDL Cholesterol Direct HDL Cholesterol Urine WBC (Auto) Urine Creatinine Urine Total Protein Vancomycin Trough Rheumatoid Factor Complement C4 Miscellaneous Test Crossmatch 10/02/16 10/03/16 10/03/16 23:45 00:45 05:10 WBC 12.9 H RBC 2.77 L Hgb 7.6 L Hct 23.7 L MCV MCH 27 L MCHC RDW 19.7 H Plt Count 89 L Lymph % (Auto) [place] % (Auto) Lymph # [place] # Seg Neutrophils % Seg Neuts % (Manual) Lymphocytes % (Manual) 8.0 L Monocytes % (Manual) Eosinophils % (Manual) Basophils % (Manual) Nucleated RBC % Seg Neutrophils # 11.9 H Seg Neutrophils # Man Lymphocytes # (Manual) 1.0 L Monocytes # (Manual) Eosinophils # (Manual) PT INR Fibrinogen dRVVT Confirm Interp Factor V Activity POC ABG pH POC ABG pCO2 POC ABG pO2 Sodium Potassium Chloride Carbon Dioxide BUN Creatinine Glucose POC Glucose 55 L 199 H Lactic Acid Calcium Phosphorus Magnesium Direct Bilirubin ALT Alkaline Phosphatase Troponin T C-Reactive Protein Total Protein Albumin Triglycerides Cholesterol LDL Cholesterol Direct HDL Cholesterol Urine WBC (Auto) Urine Creatinine Urine Total Protein Vancomycin Trough Rheumatoid Factor Complement C4 Miscellaneous Test Crossmatch 10/03/16 10/03/16 10/03/16 05:10 12:14 13:18 WBC RBC Hgb Hct MCV MCH MCHC RDW Plt Count Lymph % (Auto) [place] % (Auto) Lymph # [place] # Seg Neutrophils % Seg Neuts % (Manual) Lymphocytes % (Manual) Monocytes % (Manual) Eosinophils % (Manual) Basophils % (Manual) Nucleated RBC % Seg Neutrophils # Seg Neutrophils # Man Lymphocytes # (Manual) Monocytes # (Manual) Eosinophils # (Manual) PT INR Fibrinogen dRVVT Confirm Interp Factor V Activity POC ABG pH POC ABG pCO2 POC ABG pO2 Sodium 129 L Potassium 3.3 L Chloride 88.8 L Carbon Dioxide 20 L BUN 29 H Creatinine 2.8 H Glucose POC Glucose 68 L 127 H Lactic Acid Calcium 7.2 L Phosphorus Magnesium Direct Bilirubin ALT Alkaline Phosphatase Troponin T C-Reactive Protein Total Protein Albumin Triglycerides Cholesterol LDL Cholesterol Direct HDL Cholesterol Urine WBC (Auto) Urine Creatinine Urine Total Protein Vancomycin Trough Rheumatoid Factor Complement C4 Miscellaneous Test Crossmatch 10/03/16 10/03/16 10/03/16 14:42 18:21 19:09 WBC RBC Hgb Hct MCV MCH MCHC RDW Plt Count Lymph % (Auto) [place] % (Auto) Lymph # [place] # Seg Neutrophils % Seg Neuts % (Manual) Lymphocytes % (Manual) Monocytes % (Manual) Eosinophils % (Manual) Basophils % (Manual) Nucleated RBC % Seg Neutrophils # Seg Neutrophils # Man Lymphocytes # (Manual) Monocytes # (Manual) Eosinophils # (Manual) PT INR Fibrinogen dRVVT Confirm Interp Factor V Activity POC ABG pH 7.499 H POC ABG pCO2 28.4 L POC ABG pO2 44 L Sodium Potassium Chloride Carbon Dioxide BUN Creatinine Glucose POC Glucose 64 L 205 H Lactic Acid Calcium Phosphorus Magnesium Direct Bilirubin ALT Alkaline Phosphatase Troponin T C-Reactive Protein Total Protein Albumin Triglycerides Cholesterol LDL Cholesterol Direct HDL Cholesterol Urine WBC (Auto) Urine Creatinine Urine Total Protein Vancomycin Trough Rheumatoid Factor Complement C4 Miscellaneous Test Crossmatch 10/03/16 10/04/16 10/04/16 23:33 04:18 06:30 WBC RBC 2.54 L Hgb 7.1 L Hct 21.7 L MCV MCH MCHC RDW 19.5 H Plt Count 76 L Lymph % (Auto) [place] % (Auto) Lymph # [place] # Seg Neutrophils % Seg Neuts % (Manual) 88.0 H Lymphocytes % (Manual) 6.0 L Monocytes % (Manual) Eosinophils % (Manual) Basophils % (Manual) Nucleated RBC % Seg Neutrophils # Seg Neutrophils # Man 8.8 H Lymphocytes # (Manual) 0.6 L Monocytes # (Manual) Eosinophils # (Manual) PT INR Fibrinogen dRVVT Confirm Interp Factor V Activity POC ABG pH 7.461 H POC ABG pCO2 33.6 L POC ABG pO2 211 H Sodium Potassium Chloride Carbon Dioxide BUN Creatinine Glucose POC Glucose 136 H Lactic Acid Calcium Phosphorus Magnesium Direct Bilirubin ALT Alkaline Phosphatase Troponin T C-Reactive Protein Total Protein Albumin Triglycerides Cholesterol LDL Cholesterol Direct HDL Cholesterol Urine WBC (Auto) Urine Creatinine Urine Total Protein Vancomycin Trough Rheumatoid Factor Complement C4 Miscellaneous Test Crossmatch 10/04/16 10/04/16 10/04/16 06:30 11:45 17:54 WBC RBC Hgb Hct MCV MCH MCHC RDW Plt Count Lymph % (Auto) [place] % (Auto) Lymph # [place] # Seg Neutrophils % Seg Neuts % (Manual) Lymphocytes % (Manual) Monocytes % (Manual) Eosinophils % (Manual) Basophils % (Manual) Nucleated RBC % Seg Neutrophils # Seg Neutrophils # Man Lymphocytes # (Manual) Monocytes # (Manual) Eosinophils # (Manual) PT INR Fibrinogen dRVVT Confirm Interp Factor V Activity POC ABG pH POC ABG pCO2 POC ABG pO2 Sodium 128 L Potassium Chloride 87.4 L Carbon Dioxide 20 L BUN 34 H Creatinine 2.9 H Glucose 127 H POC Glucose 158 H 160 H Lactic Acid Calcium 7.4 L Phosphorus Magnesium Direct Bilirubin ALT Alkaline Phosphatase Troponin T C-Reactive Protein Total Protein Albumin Triglycerides Cholesterol LDL Cholesterol Direct HDL Cholesterol Urine WBC (Auto) Urine Creatinine Urine Total Protein Vancomycin Trough Rheumatoid Factor Complement C4 Miscellaneous Test Crossmatch 10/04/16 10/05/16 10/05/16 23:25 04:30 05:00 WBC RBC 2.64 L Hgb 7.5 L Hct 22.6 L MCV MCH MCHC RDW 19.3 H Plt Count 80 L Lymph % (Auto) [place] % (Auto) Lymph # [place] # Seg Neutrophils % Seg Neuts % (Manual) Lymphocytes % (Manual) 12.0 L Monocytes % (Manual) Eosinophils % (Manual) Basophils % (Manual) Nucleated RBC % Seg Neutrophils # Seg Neutrophils # Man Lymphocytes # (Manual) Monocytes # (Manual) Eosinophils # (Manual) PT INR Fibrinogen dRVVT Confirm Interp Factor V Activity POC ABG pH 7.475 H POC ABG pCO2 33.3 L POC ABG pO2 140 H Sodium Potassium Chloride Carbon Dioxide BUN Creatinine Glucose POC Glucose 141 H Lactic Acid Calcium Phosphorus Magnesium Direct Bilirubin ALT Alkaline Phosphatase Troponin T C-Reactive Protein Total Protein Albumin Triglycerides Cholesterol LDL Cholesterol Direct HDL Cholesterol Urine WBC (Auto) Urine Creatinine Urine Total Protein Vancomycin Trough Rheumatoid Factor Complement C4 Miscellaneous Test Crossmatch 10/05/16 10/05/16 10/05/16 05:00 05:09 12:58 WBC RBC Hgb Hct MCV MCH MCHC RDW Plt Count Lymph % (Auto) [place] % (Auto) Lymph # [place] # Seg Neutrophils % Seg Neuts % (Manual) Lymphocytes % (Manual) Monocytes % (Manual) Eosinophils % (Manual) Basophils % (Manual) Nucleated RBC % Seg Neutrophils # Seg Neutrophils # Man Lymphocytes # (Manual) Monocytes # (Manual) Eosinophils # (Manual) PT INR Fibrinogen dRVVT Confirm Interp Factor V Activity POC ABG pH POC ABG pCO2 POC ABG pO2 Sodium 131 L Potassium Chloride 94.0 L Carbon Dioxide 20 L BUN 22 H Creatinine 2.0 H Glucose 123 H POC Glucose 166 H 179 H Lactic Acid Calcium 7.7 L Phosphorus 2.20 L D Magnesium Direct Bilirubin ALT Alkaline Phosphatase Troponin T C-Reactive Protein Total Protein Albumin Triglycerides Cholesterol LDL Cholesterol Direct HDL Cholesterol Urine WBC (Auto) Urine Creatinine Urine Total Protein Vancomycin Trough Rheumatoid Factor Complement C4 Miscellaneous Test Crossmatch 10/05/16 10/05/16 10/05/16 15:50 18:53 23:12 WBC RBC Hgb Hct MCV MCH MCHC RDW Plt Count Lymph % (Auto) [place] % (Auto) Lymph # [place] # Seg Neutrophils % Seg Neuts % (Manual) Lymphocytes % (Manual) Monocytes % (Manual) Eosinophils % (Manual) Basophils % (Manual) Nucleated RBC % Seg Neutrophils # Seg Neutrophils # Man Lymphocytes # (Manual) Monocytes # (Manual) Eosinophils # (Manual) PT INR Fibrinogen dRVVT Confirm Interp Factor V Activity POC ABG pH POC ABG pCO2 POC ABG pO2 Sodium Potassium Chloride Carbon Dioxide BUN Creatinine Glucose POC Glucose 150 H 164 H Lactic Acid Calcium Phosphorus Magnesium Direct Bilirubin ALT Alkaline Phosphatase Troponin T C-Reactive Protein Total Protein Albumin Triglycerides Cholesterol LDL Cholesterol Direct HDL Cholesterol Urine WBC (Auto) Urine Creatinine Urine Total Protein Vancomycin Trough Rheumatoid Factor Complement C4 Miscellaneous Test Crossmatch See Detail 10/06/16 10/06/16 10/06/16 03:50 03:50 04:53 WBC RBC 3.00 L Hgb 8.6 L Hct 25.8 L MCV MCH MCHC RDW 17.9 H Plt Count 65 L Lymph % (Auto) [place] % (Auto) Lymph # [place] # Seg Neutrophils % Seg Neuts % (Manual) 30.0 L Lymphocytes % (Manual) 5.0 L Monocytes % (Manual) Eosinophils % (Manual) Basophils % (Manual) Nucleated RBC % Seg Neutrophils # Seg Neutrophils # Man Lymphocytes # (Manual) 0.4 L Monocytes # (Manual) Eosinophils # (Manual) PT INR Fibrinogen dRVVT Confirm Interp Factor V Activity POC ABG pH 7.310 L POC ABG pCO2 49.0 H POC ABG pO2 Sodium 133 L Potassium Chloride 95.9 L Carbon Dioxide BUN 26 H Creatinine 2.0 H Glucose 116 H POC Glucose Lactic Acid Calcium 7.8 L Phosphorus Magnesium Direct Bilirubin ALT Alkaline Phosphatase Troponin T C-Reactive Protein Total Protein Albumin Triglycerides Cholesterol LDL Cholesterol Direct HDL Cholesterol Urine WBC (Auto) Urine Creatinine Urine Total Protein Vancomycin Trough Rheumatoid Factor Complement C4 Miscellaneous Test Crossmatch 10/06/16 10/06/16 10/06/16 05:23 11:52 18:34 WBC RBC Hgb Hct MCV MCH MCHC RDW Plt Count Lymph % (Auto) [place] % (Auto) Lymph # [place] # Seg Neutrophils % Seg Neuts % (Manual) Lymphocytes % (Manual) Monocytes % (Manual) Eosinophils % (Manual) Basophils % (Manual) Nucleated RBC % Seg Neutrophils # Seg Neutrophils # Man Lymphocytes # (Manual) Monocytes # (Manual) Eosinophils # (Manual) PT INR Fibrinogen dRVVT Confirm Interp Factor V Activity POC ABG pH POC ABG pCO2 POC ABG pO2 Sodium Potassium Chloride Carbon Dioxide BUN Creatinine Glucose POC Glucose 126 H 116 H 129 H Lactic Acid Calcium Phosphorus Magnesium Direct Bilirubin ALT Alkaline Phosphatase Troponin T C-Reactive Protein Total Protein Albumin Triglycerides Cholesterol LDL Cholesterol Direct HDL Cholesterol Urine WBC (Auto) Urine Creatinine Urine Total Protein Vancomycin Trough Rheumatoid Factor Complement C4 Miscellaneous Test Crossmatch 10/07/16 10/07/16 10/07/16 03:45 05:00 10:00 WBC 17.0 H RBC 2.68 L Hgb 7.3 L Hct 25.3 L MCV MCH 27 L MCHC 29 L RDW 19.6 H Plt Count 74 L Lymph % (Auto) [place] % (Auto) Lymph # [place] # Seg Neutrophils % Seg Neuts % (Manual) Lymphocytes % (Manual) 12.0 L Monocytes % (Manual) Eosinophils % (Manual) Basophils % (Manual) Nucleated RBC % 4.0 H Seg Neutrophils # Seg Neutrophils # Man 10.7 H Lymphocytes # (Manual) Monocytes # (Manual) Eosinophils # (Manual) PT INR Fibrinogen dRVVT Confirm Interp Factor V Activity POC ABG pH POC ABG pCO2 POC ABG pO2 Sodium 130 L Potassium 3.2 L Chloride 93.9 L Carbon Dioxide 20 L BUN 44 H Creatinine 2.7 H Glucose 129 H POC Glucose Lactic Acid Calcium 7.4 L Phosphorus Magnesium Direct Bilirubin ALT 6 L Alkaline Phosphatase 195 H Troponin T C-Reactive Protein Total Protein 4.9 L Albumin 1.0 L Triglycerides Cholesterol LDL Cholesterol Direct HDL Cholesterol Urine WBC (Auto) Urine Creatinine Urine Total Protein Vancomycin Trough Rheumatoid Factor Complement C4 Miscellaneous Test Flexitest 1 H Crossmatch 10/07/16 10/07/16 10/07/16 10:00 11:24 18:10 WBC RBC Hgb Hct MCV MCH MCHC RDW Plt Count Lymph % (Auto) [place] % (Auto) Lymph # [place] # Seg Neutrophils % Seg Neuts % (Manual) Lymphocytes % (Manual) Monocytes % (Manual) Eosinophils % (Manual) Basophils % (Manual) Nucleated RBC % Seg Neutrophils # Seg Neutrophils # Man Lymphocytes # (Manual) Monocytes # (Manual) Eosinophils # (Manual) PT INR Fibrinogen dRVVT Confirm Interp Factor V Activity POC ABG pH POC ABG pCO2 POC ABG pO2 Sodium Potassium Chloride Carbon Dioxide BUN Creatinine Glucose POC Glucose 116 H 130 H Lactic Acid Calcium Phosphorus Magnesium Direct Bilirubin ALT Alkaline Phosphatase Troponin T C-Reactive Protein 19.40 H Total Protein Albumin Triglycerides Cholesterol LDL Cholesterol Direct HDL Cholesterol Urine WBC (Auto) Urine Creatinine Urine Total Protein Vancomycin Trough Rheumatoid Factor Complement C4 Miscellaneous Test Crossmatch 10/07/16 10/08/16 10/08/16 18:30 00:00 04:00 WBC RBC Hgb Hct MCV MCH MCHC RDW Plt Count Lymph % (Auto) [place] % (Auto) Lymph # [place] # Seg Neutrophils % Seg Neuts % (Manual) Lymphocytes % (Manual) Monocytes % (Manual) Eosinophils % (Manual) Basophils % (Manual) Nucleated RBC % Seg Neutrophils # Seg Neutrophils # Man Lymphocytes # (Manual) Monocytes # (Manual) Eosinophils # (Manual) PT INR Fibrinogen dRVVT Confirm Interp Factor V Activity POC ABG pH POC ABG pCO2 POC ABG pO2 Sodium 132 L Potassium 3.3 L Chloride 93.6 L Carbon Dioxide 17 L BUN 59 H Creatinine 2.7 H Glucose 121 H POC Glucose 122 H Lactic Acid Calcium 7.6 L Phosphorus Magnesium Direct Bilirubin ALT Alkaline Phosphatase Troponin T C-Reactive Protein Total Protein Albumin Triglycerides Cholesterol LDL Cholesterol Direct HDL Cholesterol Urine WBC (Auto) > 182.0 H Urine Creatinine Urine Total Protein Vancomycin Trough Rheumatoid Factor Complement C4 Miscellaneous Test Crossmatch 10/08/16 10/08/16 10/08/16 04:30 05:30 11:51 WBC RBC 5.15 H Hgb 14.4 H D Hct 44.5 H D MCV MCH MCHC RDW 19.5 H Plt Count 56 L Lymph % (Auto) [place] % (Auto) Lymph # [place] # Seg Neutrophils % Seg Neuts % (Manual) 24.0 L Lymphocytes % (Manual) 8.0 L Monocytes % (Manual) Eosinophils % (Manual) Basophils % (Manual) Nucleated RBC % 9.0 H Seg Neutrophils # Seg Neutrophils # Man Lymphocytes # (Manual) 0.7 L Monocytes # (Manual) Eosinophils # (Manual) PT INR Fibrinogen dRVVT Confirm Interp Factor V Activity POC ABG pH POC ABG pCO2 POC ABG pO2 Sodium Potassium Chloride Carbon Dioxide BUN Creatinine Glucose POC Glucose 125 H 150 H Lactic Acid Calcium Phosphorus Magnesium Direct Bilirubin ALT Alkaline Phosphatase Troponin T C-Reactive Protein Total Protein Albumin Triglycerides Cholesterol LDL Cholesterol Direct HDL Cholesterol Urine WBC (Auto) Urine Creatinine Urine Total Protein Vancomycin Trough Rheumatoid Factor Complement C4 Miscellaneous Test Crossmatch 10/08/16 10/08/16 10/08/16 12:49 17:07 19:30 WBC RBC Hgb 7.1 L D Hct 22.4 L D MCV MCH MCHC RDW Plt Count Lymph % (Auto) [place] % (Auto) Lymph # [place] # Seg Neutrophils % Seg Neuts % (Manual) Lymphocytes % (Manual) Monocytes % (Manual) Eosinophils % (Manual) Basophils % (Manual) Nucleated RBC % Seg Neutrophils # Seg Neutrophils # Man Lymphocytes # (Manual) Monocytes # (Manual) Eosinophils # (Manual) PT INR Fibrinogen dRVVT Confirm Interp Factor V Activity POC ABG pH POC ABG pCO2 28.2 L POC ABG pO2 111 H Sodium Potassium Chloride Carbon Dioxide BUN Creatinine Glucose POC Glucose 145 H Lactic Acid Calcium Phosphorus Magnesium Direct Bilirubin ALT Alkaline Phosphatase Troponin T C-Reactive Protein Total Protein Albumin Triglycerides Cholesterol LDL Cholesterol Direct HDL Cholesterol Urine WBC (Auto) Urine Creatinine Urine Total Protein Vancomycin Trough Rheumatoid Factor Complement C4 Miscellaneous Test Crossmatch 10/08/16 10/09/16 10/09/16 19:30 03:45 03:45 WBC 12.6 H RBC 2.36 L Hgb 6.7 L Hct 21.1 L MCV MCH MCHC RDW 19.5 H Plt Count 75 L Lymph % (Auto) [place] % (Auto) Lymph # [place] # Seg Neutrophils % Seg Neuts % (Manual) Lymphocytes % (Manual) Monocytes % (Manual) 10.0 H Eosinophils % (Manual) Basophils % (Manual) Nucleated RBC % 3.0 H Seg Neutrophils # Seg Neutrophils # Man Lymphocytes # (Manual) Monocytes # (Manual) 1.3 H Eosinophils # (Manual) PT 18.0 H INR 1.41 H Fibrinogen dRVVT Confirm Interp Factor V Activity POC ABG pH POC ABG pCO2 POC ABG pO2 Sodium 135 L Potassium Chloride Carbon Dioxide 17 L BUN 81 H Creatinine 3.2 H Glucose 109 H POC Glucose Lactic Acid Calcium 7.4 L Phosphorus 4.60 H D Magnesium Direct Bilirubin ALT Alkaline Phosphatase Troponin T C-Reactive Protein Total Protein Albumin Triglycerides Cholesterol LDL Cholesterol Direct HDL Cholesterol Urine WBC (Auto) Urine Creatinine Urine Total Protein Vancomycin Trough Rheumatoid Factor Complement C4 Miscellaneous Test Crossmatch 10/09/16 10/09/16 10/09/16 03:45 05:14 07:20 WBC RBC Hgb Hct MCV MCH MCHC RDW Plt Count Lymph % (Auto) [place] % (Auto) Lymph # [place] # Seg Neutrophils % Seg Neuts % (Manual) Lymphocytes % (Manual) Monocytes % (Manual) Eosinophils % (Manual) Basophils % (Manual) Nucleated RBC % Seg Neutrophils # Seg Neutrophils # Man Lymphocytes # (Manual) Monocytes # (Manual) Eosinophils # (Manual) PT 19.0 H INR 1.51 H Fibrinogen dRVVT Confirm Interp Factor V Activity POC ABG pH POC ABG pCO2 POC ABG pO2 Sodium Potassium Chloride Carbon Dioxide BUN Creatinine Glucose POC Glucose 151 H Lactic Acid Calcium Phosphorus Magnesium Direct Bilirubin ALT Alkaline Phosphatase Troponin T C-Reactive Protein Total Protein Albumin Triglycerides Cholesterol LDL Cholesterol Direct HDL Cholesterol Urine WBC (Auto) Urine Creatinine Urine Total Protein Vancomycin Trough Rheumatoid Factor Complement C4 Miscellaneous Test Crossmatch See Detail 10/09/16 10/09/16 10/09/16 11:46 16:20 16:43 WBC RBC Hgb 7.2 L Hct 22.2 L MCV MCH MCHC RDW Plt Count Lymph % (Auto) [place] % (Auto) Lymph # [place] # Seg Neutrophils % Seg Neuts % (Manual) Lymphocytes % (Manual) Monocytes % (Manual) Eosinophils % (Manual) Basophils % (Manual) Nucleated RBC % Seg Neutrophils # Seg Neutrophils # Man Lymphocytes # (Manual) Monocytes # (Manual) Eosinophils # (Manual) PT INR Fibrinogen dRVVT Confirm Interp Factor V Activity POC ABG pH POC ABG pCO2 POC ABG pO2 Sodium Potassium Chloride Carbon Dioxide BUN Creatinine Glucose POC Glucose 133 H 141 H Lactic Acid Calcium Phosphorus Magnesium Direct Bilirubin ALT Alkaline Phosphatase Troponin T C-Reactive Protein Total Protein Albumin Triglycerides Cholesterol LDL Cholesterol Direct HDL Cholesterol Urine WBC (Auto) Urine Creatinine Urine Total Protein Vancomycin Trough Rheumatoid Factor Complement C4 Miscellaneous Test Crossmatch 10/10/16 10/10/16 10/10/16 05:00 05:00 11:19 WBC 18.5 H RBC 2.19 L Hgb 6.4 L Hct 19.6 L* MCV MCH MCHC RDW 19.3 H Plt Count 93 L Lymph % (Auto) [place] % (Auto) Lymph # [place] # Seg Neutrophils % Seg Neuts % (Manual) Lymphocytes % (Manual) 10.0 L Monocytes % (Manual) Eosinophils % (Manual) Basophils % (Manual) Nucleated RBC % 4.0 H Seg Neutrophils # Seg Neutrophils # Man 11.3 H Lymphocytes # (Manual) Monocytes # (Manual) Eosinophils # (Manual) PT INR Fibrinogen dRVVT Confirm Interp Factor V Activity POC ABG pH POC ABG pCO2 POC ABG pO2 Sodium Potassium 5.7 H D Chloride Carbon Dioxide 16 L BUN 94 H Creatinine 3.1 H Glucose 131 H POC Glucose 153 H Lactic Acid Calcium 8.2 L Phosphorus 5.10 H Magnesium 2.40 H Direct Bilirubin 0.3 H ALT < 5 L Alkaline Phosphatase 319 H Troponin T C-Reactive Protein Total Protein 5.1 L Albumin 1.0 L Triglycerides Cholesterol LDL Cholesterol Direct HDL Cholesterol Urine WBC (Auto) Urine Creatinine Urine Total Protein Vancomycin Trough Rheumatoid Factor Complement C4 Miscellaneous Test Crossmatch 10/10/16 10/10/16 10/11/16 17:50 23:30 04:15 WBC RBC Hgb Hct MCV MCH MCHC RDW Plt Count Lymph % (Auto) [place] % (Auto) Lymph # [place] # Seg Neutrophils % Seg Neuts % (Manual) Lymphocytes % (Manual) Monocytes % (Manual) Eosinophils % (Manual) Basophils % (Manual) Nucleated RBC % Seg Neutrophils # Seg Neutrophils # Man Lymphocytes # (Manual) Monocytes # (Manual) Eosinophils # (Manual) PT INR Fibrinogen dRVVT Confirm Interp Factor V Activity POC ABG pH POC ABG pCO2 POC ABG pO2 Sodium Potassium Chloride 96.4 L Carbon Dioxide 21 L BUN 57 H Creatinine 2.1 H Glucose 151 H POC Glucose 146 H 141 H Lactic Acid Calcium 8.3 L Phosphorus Magnesium Direct Bilirubin ALT Alkaline Phosphatase Troponin T C-Reactive Protein Total Protein Albumin Triglycerides Cholesterol LDL Cholesterol Direct HDL Cholesterol Urine WBC (Auto) Urine Creatinine Urine Total Protein Vancomycin Trough Rheumatoid Factor Complement C4 Miscellaneous Test Crossmatch 10/11/16 10/11/16 10/11/16 04:15 04:15 05:30 WBC 28.3 H RBC 3.12 L Hgb 9.3 L Hct 28.7 L D MCV MCH MCHC RDW 17.7 H Plt Count 128 L Lymph % (Auto) [place] % (Auto) Lymph # [place] # Seg Neutrophils % Seg Neuts % (Manual) Lymphocytes % (Manual) Monocytes % (Manual) Eosinophils % (Manual) Basophils % (Manual) Nucleated RBC % Seg Neutrophils # Seg Neutrophils # Man Lymphocytes # (Manual) Monocytes # (Manual) Eosinophils # (Manual) PT INR Fibrinogen dRVVT Confirm Interp Factor V Activity POC ABG pH POC ABG pCO2 POC ABG pO2 Sodium Potassium Chloride Carbon Dioxide BUN Creatinine Glucose POC Glucose 167 H Lactic Acid Calcium Phosphorus Magnesium Direct Bilirubin ALT Alkaline Phosphatase Troponin T C-Reactive Protein 15.80 H Total Protein Albumin Triglycerides Cholesterol LDL Cholesterol Direct HDL Cholesterol Urine WBC (Auto) Urine Creatinine Urine Total Protein Vancomycin Trough Rheumatoid Factor Complement C4 Miscellaneous Test Crossmatch 10/11/16 10/11/16 10/11/16 11:40 15:49 23:57 WBC RBC Hgb Hct MCV MCH MCHC RDW Plt Count Lymph % (Auto) [place] % (Auto) Lymph # [place] # Seg Neutrophils % Seg Neuts % (Manual) Lymphocytes % (Manual) Monocytes % (Manual) Eosinophils % (Manual) Basophils % (Manual) Nucleated RBC % Seg Neutrophils # Seg Neutrophils # Man Lymphocytes # (Manual) Monocytes # (Manual) Eosinophils # (Manual) PT INR Fibrinogen dRVVT Confirm Interp Factor V Activity POC ABG pH POC ABG pCO2 POC ABG pO2 Sodium Potassium Chloride Carbon Dioxide BUN Creatinine Glucose POC Glucose 139 H 168 H 161 H Lactic Acid Calcium Phosphorus Magnesium Direct Bilirubin ALT Alkaline Phosphatase Troponin T C-Reactive Protein Total Protein Albumin Triglycerides Cholesterol LDL Cholesterol Direct HDL Cholesterol Urine WBC (Auto) Urine Creatinine Urine Total Protein Vancomycin Trough Rheumatoid Factor Complement C4 Miscellaneous Test Crossmatch 10/12/16 10/12/16 10/12/16 04:40 04:40 05:44 WBC 22.5 H RBC 2.88 L Hgb 8.8 L Hct 26.8 L MCV MCH MCHC RDW 17.8 H Plt Count Lymph % (Auto) [place] % (Auto) Lymph # [place] # Seg Neutrophils % Seg Neuts % (Manual) Lymphocytes % (Manual) Monocytes % (Manual) Eosinophils % (Manual) Basophils % (Manual) Nucleated RBC % Seg Neutrophils # Seg Neutrophils # Man Lymphocytes # (Manual) Monocytes # (Manual) Eosinophils # (Manual) PT INR Fibrinogen dRVVT Confirm Interp Factor V Activity POC ABG pH POC ABG pCO2 POC ABG pO2 Sodium 134 L Potassium Chloride 93.0 L Carbon Dioxide BUN 74 H Creatinine 2.5 H Glucose 137 H POC Glucose 158 H Lactic Acid Calcium 8.2 L Phosphorus Magnesium Direct Bilirubin ALT Alkaline Phosphatase Troponin T C-Reactive Protein Total Protein Albumin Triglycerides Cholesterol LDL Cholesterol Direct HDL Cholesterol Urine WBC (Auto) Urine Creatinine Urine Total Protein Vancomycin Trough Rheumatoid Factor Complement C4 Miscellaneous Test Crossmatch 10/12/16 10/12/16 10/12/16 12:27 18:18 23:46 WBC RBC Hgb Hct MCV MCH MCHC RDW Plt Count Lymph % (Auto) [place] % (Auto) Lymph # [place] # Seg Neutrophils % Seg Neuts % (Manual) Lymphocytes % (Manual) Monocytes % (Manual) Eosinophils % (Manual) Basophils % (Manual) Nucleated RBC % Seg Neutrophils # Seg Neutrophils # Man Lymphocytes # (Manual) Monocytes # (Manual) Eosinophils # (Manual) PT INR Fibrinogen dRVVT Confirm Interp Factor V Activity POC ABG pH POC ABG pCO2 POC ABG pO2 Sodium Potassium Chloride Carbon Dioxide BUN Creatinine Glucose POC Glucose 153 H 140 H 150 H Lactic Acid Calcium Phosphorus Magnesium Direct Bilirubin ALT Alkaline Phosphatase Troponin T C-Reactive Protein Total Protein Albumin Triglycerides Cholesterol LDL Cholesterol Direct HDL Cholesterol Urine WBC (Auto) Urine Creatinine Urine Total Protein Vancomycin Trough Rheumatoid Factor Complement C4 Miscellaneous Test Crossmatch 10/13/16 10/13/16 10/13/16 06:22 12:29 18:09 WBC RBC Hgb Hct MCV MCH MCHC RDW Plt Count Lymph % (Auto) [place] % (Auto) Lymph # [place] # Seg Neutrophils % Seg Neuts % (Manual) Lymphocytes % (Manual) Monocytes % (Manual) Eosinophils % (Manual) Basophils % (Manual) Nucleated RBC % Seg Neutrophils # Seg Neutrophils # Man Lymphocytes # (Manual) Monocytes # (Manual) Eosinophils # (Manual) PT INR Fibrinogen dRVVT Confirm Interp Factor V Activity POC ABG pH POC ABG pCO2 POC ABG pO2 Sodium Potassium Chloride Carbon Dioxide BUN Creatinine Glucose POC Glucose 165 H 193 H 166 H Lactic Acid Calcium Phosphorus Magnesium Direct Bilirubin ALT Alkaline Phosphatase Troponin T C-Reactive Protein Total Protein Albumin Triglycerides Cholesterol LDL Cholesterol Direct HDL Cholesterol Urine WBC (Auto) Urine Creatinine Urine Total Protein Vancomycin Trough Rheumatoid Factor Complement C4 Miscellaneous Test Crossmatch 10/13/16 10/13/16 10/14/16 Unknown Unknown 05:38 WBC 23.4 H RBC 2.83 L Hgb 8.7 L Hct 26.1 L MCV MCH MCHC RDW 18.1 H Plt Count Lymph % (Auto) [place] % (Auto) Lymph # [place] # Seg Neutrophils % Seg Neuts % (Manual) Lymphocytes % (Manual) Monocytes % (Manual) Eosinophils % (Manual) Basophils % (Manual) Nucleated RBC % Seg Neutrophils # Seg Neutrophils # Man Lymphocytes # (Manual) Monocytes # (Manual) Eosinophils # (Manual) PT INR Fibrinogen dRVVT Confirm Interp Factor V Activity POC ABG pH POC ABG pCO2 POC ABG pO2 Sodium Potassium Chloride 95.8 L Carbon Dioxide BUN 82 H Creatinine 2.6 H Glucose 152 H POC Glucose 195 H Lactic Acid Calcium Phosphorus Magnesium Direct Bilirubin ALT Alkaline Phosphatase Troponin T C-Reactive Protein Total Protein Albumin Triglycerides Cholesterol LDL Cholesterol Direct HDL Cholesterol Urine WBC (Auto) Urine Creatinine Urine Total Protein Vancomycin Trough Rheumatoid Factor Complement C4 Miscellaneous Test Crossmatch 10/14/16 10/14/16 10/14/16 06:35 08:10 11:44 WBC 20.7 H RBC 2.81 L Hgb 8.4 L Hct 27.2 L MCV MCH MCHC RDW 19.4 H Plt Count Lymph % (Auto) [place] % (Auto) Lymph # [place] # Seg Neutrophils % Seg Neuts % (Manual) Lymphocytes % (Manual) Monocytes % (Manual) Eosinophils % (Manual) Basophils % (Manual) Nucleated RBC % Seg Neutrophils # Seg Neutrophils # Man Lymphocytes # (Manual) Monocytes # (Manual) Eosinophils # (Manual) PT INR Fibrinogen dRVVT Confirm Interp Factor V Activity POC ABG pH POC ABG pCO2 POC ABG pO2 Sodium Potassium Chloride Carbon Dioxide BUN 58 H Creatinine 1.9 H Glucose 169 H POC Glucose 174 H Lactic Acid Calcium Phosphorus Magnesium Direct Bilirubin ALT Alkaline Phosphatase Troponin T C-Reactive Protein Total Protein Albumin Triglycerides Cholesterol LDL Cholesterol Direct HDL Cholesterol Urine WBC (Auto) Urine Creatinine Urine Total Protein Vancomycin Trough Rheumatoid Factor Complement C4 Miscellaneous Test Crossmatch 10/14/16 10/14/16 10/15/16 17:13 23:28 05:06 WBC RBC Hgb Hct MCV MCH MCHC RDW Plt Count Lymph % (Auto) [place] % (Auto) Lymph # [place] # Seg Neutrophils % Seg Neuts % (Manual) Lymphocytes % (Manual) Monocytes % (Manual) Eosinophils % (Manual) Basophils % (Manual) Nucleated RBC % Seg Neutrophils # Seg Neutrophils # Man Lymphocytes # (Manual) Monocytes # (Manual) Eosinophils # (Manual) PT INR Fibrinogen dRVVT Confirm Interp Factor V Activity POC ABG pH POC ABG pCO2 POC ABG pO2 Sodium Potassium Chloride Carbon Dioxide BUN Creatinine Glucose POC Glucose 121 H 151 H 151 H Lactic Acid Calcium Phosphorus Magnesium Direct Bilirubin ALT Alkaline Phosphatase Troponin T C-Reactive Protein Total Protein Albumin Triglycerides Cholesterol LDL Cholesterol Direct HDL Cholesterol Urine WBC (Auto) Urine Creatinine Urine Total Protein Vancomycin Trough Rheumatoid Factor Complement C4 Miscellaneous Test Crossmatch 10/15/16 10/15/16 10/15/16 12:26 17:48 Unknown WBC RBC Hgb Hct MCV MCH MCHC RDW Plt Count Lymph % (Auto) [place] % (Auto) Lymph # [place] # Seg Neutrophils % Seg Neuts % (Manual) Lymphocytes % (Manual) Monocytes % (Manual) Eosinophils % (Manual) Basophils % (Manual) Nucleated RBC % Seg Neutrophils # Seg Neutrophils # Man Lymphocytes # (Manual) Monocytes # (Manual) Eosinophils # (Manual) PT INR Fibrinogen dRVVT Confirm Interp Factor V Activity POC ABG pH POC ABG pCO2 POC ABG pO2 Sodium Potassium Chloride Carbon Dioxide BUN 73 H Creatinine 2.3 H Glucose 120 H POC Glucose 149 H 153 H Lactic Acid Calcium Phosphorus Magnesium Direct Bilirubin ALT Alkaline Phosphatase Troponin T C-Reactive Protein Total Protein Albumin Triglycerides Cholesterol LDL Cholesterol Direct HDL Cholesterol Urine WBC (Auto) Urine Creatinine Urine Total Protein Vancomycin Trough Rheumatoid Factor Complement C4 Miscellaneous Test Crossmatch 10/15/16 10/16/16 10/16/16 Unknown 00:02 05:44 WBC 23.4 H RBC 2.78 L Hgb 8.5 L Hct 25.7 L MCV MCH MCHC RDW 18.7 H Plt Count Lymph % (Auto) [place] % (Auto) Lymph # [place] # Seg Neutrophils % Seg Neuts % (Manual) Lymphocytes % (Manual) Monocytes % (Manual) Eosinophils % (Manual) Basophils % (Manual) Nucleated RBC % Seg Neutrophils # Seg Neutrophils # Man Lymphocytes # (Manual) Monocytes # (Manual) Eosinophils # (Manual) PT INR Fibrinogen dRVVT Confirm Interp Factor V Activity POC ABG pH POC ABG pCO2 POC ABG pO2 Sodium Potassium Chloride Carbon Dioxide BUN Creatinine Glucose POC Glucose 137 H 110 H Lactic Acid Calcium Phosphorus Magnesium Direct Bilirubin ALT Alkaline Phosphatase Troponin T C-Reactive Protein Total Protein Albumin Triglycerides Cholesterol LDL Cholesterol Direct HDL Cholesterol Urine WBC (Auto) Urine Creatinine Urine Total Protein Vancomycin Trough Rheumatoid Factor Complement C4 Miscellaneous Test Crossmatch 10/16/16 10/16/16 06:25 06:25 WBC 22.5 H RBC 2.76 L Hgb 8.3 L Hct 25.2 L MCV MCH MCHC RDW 18.3 H Plt Count Lymph % (Auto) [place] % (Auto) Lymph # [place] # Seg Neutrophils % Seg Neuts % (Manual) Lymphocytes % (Manual) Monocytes % (Manual) Eosinophils % (Manual) Basophils % (Manual) Nucleated RBC % Seg Neutrophils # Seg Neutrophils # Man Lymphocytes # (Manual) Monocytes # (Manual) Eosinophils # (Manual) PT INR Fibrinogen dRVVT Confirm Interp Factor V Activity POC ABG pH POC ABG pCO2 POC ABG pO2 Sodium Potassium Chloride Carbon Dioxide BUN 92 H Creatinine 3.0 H Glucose 138 H POC Glucose Lactic Acid Calcium Phosphorus Magnesium Direct Bilirubin ALT Alkaline Phosphatase Troponin T C-Reactive Protein Total Protein Albumin Triglycerides Cholesterol LDL Cholesterol Direct HDL Cholesterol Urine WBC (Auto) Urine Creatinine Urine Total Protein Vancomycin Trough Rheumatoid Factor Complement C4 Miscellaneous Test Crossmatch Allied health notes reviewed: RT
--- NOTE | 2016-10-16 10:44 | Progress Note ---
Assessment and Plan - Patient Problems (1) Dislodged gastrostomy tube Current Visit: Yes Status: Acute Plan to address problem: continue supportive care. monitor drainage and remove drain when output less than 30cc/day will plan for a CT with PO contrast to evaluate repair later this week. wean vent as tolerated. Subjective Date of service: 10/16/16 Patient Reports: Positive: afebrile, other (drainage decreasing but still purulent.) Objective Vital Signs - 12hr 10/15/16 10/15/16 10/15/16 23:00 23:01 23:31 Temperature Pulse Rate 122 H 121 H 122 H Pulse Rate [ From Monitor] Pulse Rate [ Left Dorsalis Pedis] Pulse Rate [ Left Radial] Pulse Rate [ Right Dorsalis Pedis] Pulse Rate [ Right Radial] Respiratory 26 H 29 H 30 H Rate Blood Pressure 183/105 183/105 183/105 O2 Sat by Pulse 97 96 97 Oximetry O2 Sat by Pulse Oximetry [ Assessment] 10/15/16 10/15/16 10/16/16 23:36 23:37 00:00 Temperature 99.7 F H Pulse Rate 127 H 128 H Pulse Rate [ 120 H From Monitor] Pulse Rate [ 120 H Left Dorsalis Pedis] Pulse Rate [ 120 H Left Radial] Pulse Rate [ 120 H Right Dorsalis Pedis] Pulse Rate [ 120 H Right Radial] Respiratory 26 H Rate Blood Pressure 183/105 175/107 O2 Sat by Pulse 96 97 Oximetry O2 Sat by Pulse 97 Oximetry [ Assessment] 10/16/16 10/16/16 10/16/16 00:31 01:00 01:31 Temperature Pulse Rate 119 H 122 H 127 H Pulse Rate [ From Monitor] Pulse Rate [ Left Dorsalis Pedis] Pulse Rate [ Left Radial] Pulse Rate [ Right Dorsalis Pedis] Pulse Rate [ Right Radial] Respiratory 27 H 28 H 30 H Rate Blood Pressure 175/107 184/107 184/107 O2 Sat by Pulse 99 98 100 Oximetry O2 Sat by Pulse Oximetry [ Assessment] 10/16/16 10/16/16 10/16/16 02:00 02:31 03:00 Temperature Pulse Rate 131 H 113 H Pulse Rate [ From Monitor] Pulse Rate [ Left Dorsalis Pedis] Pulse Rate [ Left Radial] Pulse Rate [ Right Dorsalis Pedis] Pulse Rate [ Right Radial] Respiratory 26 H 29 H Rate Blood Pressure 208/129 208/129 170/81 O2 Sat by Pulse 100 96 Oximetry O2 Sat by Pulse Oximetry [ Assessment] 10/16/16 10/16/16 10/16/16 03:14 03:16 03:20 Temperature Pulse Rate 112 H 112 H Pulse Rate [ 112 H From Monitor] Pulse Rate [ Left Dorsalis Pedis] Pulse Rate [ 112 H Left Radial] Pulse Rate [ Right Dorsalis Pedis] Pulse Rate [ 112 H Right Radial] Respiratory 29 H Rate Blood Pressure 170/80 170/81 O2 Sat by Pulse Oximetry O2 Sat by Pulse Oximetry [ Assessment] 10/16/16 10/16/16 10/16/16 03:30 04:00 04:30 Temperature 98.8 F Pulse Rate 112 H 123 H 119 H Pulse Rate [ From Monitor] Pulse Rate [ Left Dorsalis Pedis] Pulse Rate [ Left Radial] Pulse Rate [ Right Dorsalis Pedis] Pulse Rate [ Right Radial] Respiratory 25 H 28 H 26 H Rate Blood Pressure 170/81 175/89 175/89 O2 Sat by Pulse 97 97 97 Oximetry O2 Sat by Pulse Oximetry [ Assessment] 10/16/16 10/16/16 10/16/16 05:00 05:30 06:00 Temperature Pulse Rate 117 H 121 H 126 H Pulse Rate [ From Monitor] Pulse Rate [ Left Dorsalis Pedis] Pulse Rate [ Left Radial] Pulse Rate [ Right Dorsalis Pedis] Pulse Rate [ Right Radial] Respiratory 25 H 26 H 30 H Rate Blood Pressure 167/85 167/85 176/91 O2 Sat by Pulse 97 97 97 Oximetry O2 Sat by Pulse Oximetry [ Assessment] 10/16/16 10/16/16 10/16/16 06:30 07:00 07:26 Temperature 99.4 F Pulse Rate 114 H 122 H Pulse Rate [ From Monitor] Pulse Rate [ Left Dorsalis Pedis] Pulse Rate [ Left Radial] Pulse Rate [ Right Dorsalis Pedis] Pulse Rate [ Right Radial] Respiratory 28 H 29 H Rate Blood Pressure 176/91 184/114 O2 Sat by Pulse 100 98 Oximetry O2 Sat by Pulse Oximetry [ Assessment] 10/16/16 10/16/16 10/16/16 07:30 07:39 08:11 Temperature Pulse Rate 118 H 130 H Pulse Rate [ From Monitor] Pulse Rate [ Left Dorsalis Pedis] Pulse Rate [ Left Radial] Pulse Rate [ Right Dorsalis Pedis] Pulse Rate [ Right Radial] Respiratory 26 H Rate Blood Pressure 137/74 129/76 O2 Sat by Pulse 99 100 99 Oximetry O2 Sat by Pulse Oximetry [ Assessment] 10/16/16 09:36 Temperature Pulse Rate 161 H Pulse Rate [ From Monitor] Pulse Rate [ Left Dorsalis Pedis] Pulse Rate [ Left Radial] Pulse Rate [ Right Dorsalis Pedis] Pulse Rate [ Right Radial] Respiratory Rate Blood Pressure 129/82 O2 Sat by Pulse Oximetry O2 Sat by Pulse Oximetry [ Assessment] - General physical appearance no distress - Respiratory normal respiratory effort - Abdomen soft, not tender, other (drain with minimal output) - Labs 10/16/16 06:25 10/16/16 06:25 Diabetes panel 10/16/16 Range/Units 06:25 Sodium 142 (137-145) mmol/L Potassium 4.0 (3.6-5.0) mmol/L Chloride 99.4 (98-107) mmol/L Carbon Dioxide 24 (22-30) mmol/L BUN 92 H (7-17) mg/dL Creatinine 3.0 H (0.7-1.2) mg/dL Glucose 138 H (65-100) mg/dL Calcium 9.3 (8.4-10.2) mg/dL Calcium panel 10/16/16 Range/Units 06:25 Calcium 9.3 (8.4-10.2) mg/dL Phosphorus 3.70 D (2.5-4.5) mg/dL Pituitary panel 10/16/16 Range/Units 06:25 Sodium 142 (137-145) mmol/L Potassium 4.0 (3.6-5.0) mmol/L Chloride 99.4 (98-107) mmol/L Carbon Dioxide 24 (22-30) mmol/L BUN 92 H (7-17) mg/dL Creatinine 3.0 H (0.7-1.2) mg/dL Glucose 138 H (65-100) mg/dL Calcium 9.3 (8.4-10.2) mg/dL Adrenal panel 10/16/16 Range/Units 06:25 Sodium 142 (137-145) mmol/L Potassium 4.0 (3.6-5.0) mmol/L Chloride 99.4 (98-107) mmol/L Carbon Dioxide 24 (22-30) mmol/L BUN 92 H (7-17) mg/dL Creatinine 3.0 H (0.7-1.2) mg/dL Glucose 138 H (65-100) mg/dL Calcium 9.3 (8.4-10.2) mg/dL
--- NOTE | 2016-10-16 10:59 | Progress Note ---
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 * Acute hypoxic respiratory failure * Accelerated hypertension * Left renal artery stenosis * Metabolic acidosis w/ respiratory compensation * Hyponatremia - resolved * pAfib Plan: * Pressors prn MAP>65 * dialysis prn, held dialysis due to tachycardia, HR 130s to 150 * bun elevated, has gi bleed * hd prn, maybe in am if HR better * Rate control per cardiology * Transfusion of pRBC per primary team * Vent management per critical care * Dose medications for renal function * Avoid potential nephrotoxins Subjective Date of service: 10/16/16 Principal diagnosis: hematochezia Interval history: no new event Objective - Exam Narrative Exam: Gen. appearance: Patient lying in bed, no apparent distress, 4. restraints HEENT: Normocephalic, atraumatic, pupils equally round and reactive to light, extraocular movement intact, and no sclericterus,. No JVD or thyromegaly or nodule,neck supple, no carotid bruit ,mucous membranes moist, unable to examine oral cavity Heart: S1, S2, regular rate and rhythm Lungs: Clear to auscultation bilaterally, breathing comfortable Abdomen: Positive bowel sounds, nontender, nondistended, no organomegaly Extremity: No edema, cyanosis, clubbing Skin: No rash, nodules, warm, dry Neuro: Difficult to assess, facial droop, moves all 4 extremities - Vital Signs Vital signs: Vital Signs - 12hr 10/15/16 10/15/16 10/15/16 23:00 23:01 23:31 Temperature Pulse Rate 122 H 121 H 122 H Pulse Rate [ From Monitor] Pulse Rate [ Left Dorsalis Pedis] Pulse Rate [ Left Radial] Pulse Rate [ Right Dorsalis Pedis] Pulse Rate [ Right Radial] Respiratory 26 H 29 H 30 H Rate Blood Pressure 183/105 183/105 183/105 O2 Sat by Pulse 97 96 97 Oximetry O2 Sat by Pulse Oximetry [ Assessment] 10/15/16 10/15/16 10/16/16 23:36 23:37 00:00 Temperature 99.7 F H Pulse Rate 127 H 128 H Pulse Rate [ 120 H From Monitor] Pulse Rate [ 120 H Left Dorsalis Pedis] Pulse Rate [ 120 H Left Radial] Pulse Rate [ 120 H Right Dorsalis Pedis] Pulse Rate [ 120 H Right Radial] Respiratory 26 H Rate Blood Pressure 183/105 175/107 O2 Sat by Pulse 96 97 Oximetry O2 Sat by Pulse 97 Oximetry [ Assessment] 10/16/16 10/16/16 10/16/16 00:31 01:00 01:31 Temperature Pulse Rate 119 H 122 H 127 H Pulse Rate [ From Monitor] Pulse Rate [ Left Dorsalis Pedis] Pulse Rate [ Left Radial] Pulse Rate [ Right Dorsalis Pedis] Pulse Rate [ Right Radial] Respiratory 27 H 28 H 30 H Rate Blood Pressure 175/107 184/107 184/107 O2 Sat by Pulse 99 98 100 Oximetry O2 Sat by Pulse Oximetry [ Assessment] 10/16/16 10/16/16 10/16/16 02:00 02:31 03:00 Temperature Pulse Rate 131 H 113 H Pulse Rate [ From Monitor] Pulse Rate [ Left Dorsalis Pedis] Pulse Rate [ Left Radial] Pulse Rate [ Right Dorsalis Pedis] Pulse Rate [ Right Radial] Respiratory 26 H 29 H Rate Blood Pressure 208/129 208/129 170/81 O2 Sat by Pulse 100 96 Oximetry O2 Sat by Pulse Oximetry [ Assessment] 10/16/16 10/16/16 10/16/16 03:14 03:16 03:20 Temperature Pulse Rate 112 H 112 H Pulse Rate [ 112 H From Monitor] Pulse Rate [ Left Dorsalis Pedis] Pulse Rate [ 112 H Left Radial] Pulse Rate [ Right Dorsalis Pedis] Pulse Rate [ 112 H Right Radial] Respiratory 29 H Rate Blood Pressure 170/80 170/81 O2 Sat by Pulse Oximetry O2 Sat by Pulse Oximetry [ Assessment] 10/16/16 10/16/16 10/16/16 03:30 04:00 04:30 Temperature 98.8 F Pulse Rate 112 H 123 H 119 H Pulse Rate [ From Monitor] Pulse Rate [ Left Dorsalis Pedis] Pulse Rate [ Left Radial] Pulse Rate [ Right Dorsalis Pedis] Pulse Rate [ Right Radial] Respiratory 25 H 28 H 26 H Rate Blood Pressure 170/81 175/89 175/89 O2 Sat by Pulse 97 97 97 Oximetry O2 Sat by Pulse Oximetry [ Assessment] 10/16/16 10/16/16 10/16/16 05:00 05:30 06:00 Temperature Pulse Rate 117 H 121 H 126 H Pulse Rate [ From Monitor] Pulse Rate [ Left Dorsalis Pedis] Pulse Rate [ Left Radial] Pulse Rate [ Right Dorsalis Pedis] Pulse Rate [ Right Radial] Respiratory 25 H 26 H 30 H Rate Blood Pressure 167/85 167/85 176/91 O2 Sat by Pulse 97 97 97 Oximetry O2 Sat by Pulse Oximetry [ Assessment] 10/16/16 10/16/16 10/16/16 06:30 07:00 07:26 Temperature 99.4 F Pulse Rate 114 H 122 H Pulse Rate [ From Monitor] Pulse Rate [ Left Dorsalis Pedis] Pulse Rate [ Left Radial] Pulse Rate [ Right Dorsalis Pedis] Pulse Rate [ Right Radial] Respiratory 28 H 29 H Rate Blood Pressure 176/91 184/114 O2 Sat by Pulse 100 98 Oximetry O2 Sat by Pulse Oximetry [ Assessment] 10/16/16 10/16/16 10/16/16 07:30 07:39 08:11 Temperature Pulse Rate 118 H 130 H Pulse Rate [ From Monitor] Pulse Rate [ Left Dorsalis Pedis] Pulse Rate [ Left Radial] Pulse Rate [ Right Dorsalis Pedis] Pulse Rate [ Right Radial] Respiratory 26 H Rate Blood Pressure 137/74 129/76 O2 Sat by Pulse 99 100 99 Oximetry O2 Sat by Pulse Oximetry [ Assessment] 10/16/16 09:36 Temperature Pulse Rate 161 H Pulse Rate [ From Monitor] Pulse Rate [ Left Dorsalis Pedis] Pulse Rate [ Left Radial] Pulse Rate [ Right Dorsalis Pedis] Pulse Rate [ Right Radial] Respiratory Rate Blood Pressure 129/82 O2 Sat by Pulse Oximetry O2 Sat by Pulse Oximetry [ Assessment] - Lab 10/16/16 06:25 10/16/16 06:25 Most recent lab results Calcium 9.3 mg/dL (8.4-10.2) 10/16/16 06:25 Phosphorus 3.70 mg/dL (2.5-4.5) D 10/16/16 06:25 Magnesium 1.80 mg/dL (1.7-2.3) 10/15/16 Unknown Urine Creatinine 54.8 mg/dL (0.1-20.0) H 09/21/16 12:00 Urine Sodium 36 mEq/L 09/16/16 19:19 Urine Total Protein 16 mg/dL (5-11.8) H 09/16/16 19:19
--- NOTE | 2016-10-16 11:54 | Vascular Lab Report ---
LOWER EXTREMITY VENOUS DUPLEX: REASON FOR EXAM: Pain and swelling of the lower extremities. COMMENTS ON THE RIGHT: All veins visualized are freely compressible without evidence of internal echogenicity. Flow is spontaneous and phasic throughout. COMMENTS ON THE LEFT: All veins visualized are freely compressible without evidence of internal echogenicity. Flow is spontaneous and phasic throughout. IMPRESSION: No evidence of acute or chronic deep venous thrombosis in either lower extremity.
--- NOTE | 2016-10-16 14:04 | Progress Note ---
Assessment and Plan Assessment: 1) Recurrent Sepsis: still leukocytosis and fever ? unclear source. -Current sepsis etiology - peritonitis from gastric perforation +/- UTI. -Initial sepsis etiology - presumed aspiration pneumonia, and another septic episode on 09/23 from Candidemia. -CRP 19 --> 22 -Procalcitonin=24 -repeat CT abdomen no leak no abscess -repeat blood cx - neg 2) Peritonitis: from gastric perforation from dislodged PEG with significant ascites -S/P exlap, repair of gastric perforation with wedge gastrectomy, abdominal washout, drain placement on 10/05. 3) Candidemia: -Blood cultures positive for Silvia albicans on 09/23 -Blood cultures positive on 09/25 -Blood cutlures negative on 09/30 -PICC line changed on 10/03 -Source ? gastric perf (PEG placed on 09/20) +/- TPN +/- central lines -TTE 10/07 no vegetations -PICC exchanged on 10/03 -fully treated with micafungin for 14 days last day 10/13 4) CA-UTI s/p gutierrez exchanged 5) Diarrhea - ? etiology ? antibiotic-induced, not better 6) Initial presumed aspiration pneumonia 7) Presumed UTI: urine cx 09/23 multiple species 8) Respiratory failure s/p trach 9) Recent CVA-left MCA CVA 10) Uncontrolled HTN 11) Acute on CKD 12) Extensive back skin peeling ? burn from gastric secretions. Doubt allergic reaction 13) Severe anemia; ? from GI bleed Plan: -follow-up repeat blood cultures and procalcitonin -continue meropenem to cover peritonitis (was on zosyn before) day 10 of 14 -surgery to repeat CT Thank you Dr Ribeiro for your consultation, will follow up with you. Pauline Carias MD Infectious Diseases Specialist [facility] ([facility] M [phone] O [phone] Subjective Principal diagnosis: hematochezia Interval history: Somnolent open eyes spontaneously, not following commands, on the vent via trach , no pressors. Still fever at 100.4 last 24h and tachycardia on monitor, + oliguric. + diarrhea Microbiology: Blood cultures: 09/13 neg 09/23 Silvia albicans 09/25 Silvia / neg 10/07 NGTD Urine cultures: 09/10 neg 09/13 neg 09/23 10-100K mixed species 10/07 pending Respiratory cultures: 09/07 neg 09/13 neg 09/23 neg Wound cultures: Stool cultures: Current Antimicrobials: Meropenem 10/10 Previous Antimicrobials: Zosyn 10/07 Vancomycin PO 10/01 Metronidazole 09/25 Micafungin 09/27-10/13 Objective - Constitutional Vitals: Vital Signs Temp Pulse Resp BP Pulse Ox 100.4 F H 113 H 25 H 184/99 99 10/16/16 12:00 10/16/16 12:34 10/16/16 12:00 10/16/16 12:34 10/16/16 12:34 Temperature -Last 24 Hours Temperature 100.4 F Temperature 99.4 F Temperature 98.8 F Temperature 99.7 F Temperature 100.0 F Temperature 100.5 F - Labs CBC & Chem 7: 10/16/16 06:25 10/16/16 06:25 Labs: Abnormal lab results 10/15/16 10/16/16 10/16/16 Range/Units 17:48 00:02 05:44 WBC (4.5-11.0) K/mm3 RBC (3.65-5.03) M/mm3 Hgb (10.1-14.3) gm/dl Hct (30.3-42.9) % RDW (13.2-15.2) % POC ABG pH (7.35-7.45) POC ABG pCO2 (35-45) POC ABG pO2 (80-105) BUN (7-17) mg/dL Creatinine (0.7-1.2) mg/dL Glucose (65-100) mg/dL POC Glucose 153 H 137 H 110 H (70-105) 10/16/16 10/16/16 10/16/16 Range/Units 06:25 06:25 11:27 WBC 22.5 H (4.5-11.0) K/mm3 RBC 2.76 L (3.65-5.03) M/mm3 Hgb 8.3 L (10.1-14.3) gm/dl Hct 25.2 L (30.3-42.9) % RDW 18.3 H (13.2-15.2) % POC ABG pH 7.582 H (7.35-7.45) POC ABG pCO2 27.4 L (35-45) POC ABG pO2 110 H (80-105) BUN 92 H (7-17) mg/dL Creatinine 3.0 H (0.7-1.2) mg/dL Glucose 138 H (65-100) mg/dL POC Glucose (70-105) // Range/Units 11:48 WBC (4.5-11.0) K/mm3 RBC (3.65-5.03) M/mm3 Hgb (10.1-14.3) gm/dl Hct (30.3-42.9) % RDW (13.2-15.2) % POC ABG pH (7.35-7.45) POC ABG pCO2 (35-45) POC ABG pO2 (80-105) BUN (7-17) mg/dL Creatinine (0.7-1.2) mg/dL Glucose (65-100) mg/dL POC Glucose 121 H (70-105)
--- NOTE | 2016-10-16 15:35 | Progress Note ---
Assessment and Plan - Patient Problems (1) Respiratory failure Current Visit: Yes Status: Acute Qualifiers: Chronicity: C Respiratory failure complication: R Plan to address problem: Continue supportive management. (2) Atrial fibrillation Current Visit: Yes Status: Acute Qualifiers: Atrial fibrillation type: A Plan to address problem: Intravenous Lopressor for management of paroxysmal atrial fibrillation. Subjective Date of service: 10/16/16 Principal diagnosis: hematochezia Interval history: Patient is sedated, on the vent. Today, she is sinus tachycardia at 130. No evidence of recurrent atrial fibrillation today. Blood pressure remains stable at 138 systolic. Objective Vital Signs Temp Pulse Pulse Pulse Pulse Pulse Pulse 10/16/16 15:22 10/16/16 12:34 113 H 10/16/16 12:00 100.4 F H 134 H 10/16/16 11:30 141 H 10/16/16 11:00 126 H 10/16/16 10:30 117 H 10/16/16 10:00 120 H 10/16/16 09:36 161 H 10/16/16 09:30 132 H 10/16/16 09:00 142 H 10/16/16 08:30 141 H 10/16/16 08:11 130 H 10/16/16 08:00 162 H 10/16/16 07:39 10/16/16 07:30 118 H 10/16/16 07:26 99.4 F 10/16/16 07:00 122 H 10/16/16 06:30 114 H 10/16/16 06:00 126 H 10/16/16 05:30 121 H 10/16/16 05:00 117 H 10/16/16 04:30 119 H 10/16/16 04:00 98.8 F 123 H 10/16/16 03:30 112 H 10/16/16 03:20 112 H 112 H 112 H 10/16/16 03:16 112 H 10/16/16 03:14 112 H 10/16/16 03:00 113 H 10/16/16 02:31 10/16/16 02:00 131 H 10/16/16 01:31 127 H 10/16/16 01:00 122 H 10/16/16 00:31 119 H 10/16/16 00:00 99.7 F H 128 H 120 H 120 H 120 H 120 H 120 H 10/15/16 23:37 127 H 10/15/16 23:36 10/15/16 23:31 122 H 10/15/16 23:01 121 H 10/15/16 23:00 122 H 10/15/16 22:31 123 H 10/15/16 22:00 114 H 10/15/16 21:31 120 H 10/15/16 21:00 119 H 10/15/16 20:30 121 H 10/15/16 20:00 126 H 117 H 117 H 117 H 117 H 117 H 10/15/16 19:31 100.0 F H 10/15/16 19:30 120 H 10/15/16 19:20 121 H 10/15/16 19:00 118 H 10/15/16 18:41 126 H 10/15/16 18:31 122 H 10/15/16 18:00 126 H 10/15/16 17:30 119 H 10/15/16 17:08 126 H 10/15/16 17:00 129 H 10/15/16 16:32 134 H 10/15/16 16:30 125 H 10/15/16 16:00 100.5 F H 126 H 10/15/16 15:53 Resp Resp BP Pulse Ox Pulse Ox 10/16/16 15:22 97 10/16/16 12:34 184/99 99 10/16/16 12:00 25 H 173/102 100 10/16/16 11:30 28 H 119/66 100 10/16/16 11:00 22 119/66 100 10/16/16 10:30 26 H 127/74 100 10/16/16 10:00 25 H 24 127/74 100 10/16/16 09:36 129/82 10/16/16 09:30 22 129/82 100 10/16/16 09:00 22 129/82 100 10/16/16 08:30 23 129/76 99 10/16/16 08:11 129/76 99 10/16/16 08:00 26 H 129/76 99 10/16/16 07:39 100 10/16/16 07:30 26 H 137/74 99 10/16/16 07:26 10/16/16 07:00 29 H 184/114 98 10/16/16 06:30 28 H 176/91 100 10/16/16 06:00 30 H 176/91 97 10/16/16 05:30 26 H 167/85 97 10/16/16 05:00 25 H 167/85 97 10/16/16 04:30 26 H 175/89 97 10/16/16 04:00 28 H 175/89 97 10/16/16 03:30 25 H 170/81 97 10/16/16 03:20 29 H 10/16/16 03:16 170/81 10/16/16 03:14 170/80 10/16/16 03:00 29 H 170/81 96 10/16/16 02:31 208/129 10/16/16 02:00 26 H 208/129 100 10/16/16 01:31 30 H 184/107 100 10/16/16 01:00 28 H 184/107 98 10/16/16 00:31 27 H 175/107 99 10/16/16 00:00 26 H 175/107 97 10/15/16 23:37 183/105 96 10/15/16 23:36 97 10/15/16 23:31 30 H 183/105 97 10/15/16 23:01 29 H 183/105 96 10/15/16 23:00 26 H 183/105 97 10/15/16 22:31 32 H 168/90 96 10/15/16 22:00 29 H 24 168/90 96 10/15/16 21:31 27 H 190/110 95 10/15/16 21:00 25 H 190/110 96 10/15/16 20:30 24 187/105 96 10/15/16 20:00 30 H 222/135 96 10/15/16 19:31 10/15/16 19:30 29 H 159/100 96 10/15/16 19:20 164/92 96 10/15/16 19:00 31 H 164/92 96 10/15/16 18:41 126/64 10/15/16 18:31 29 H 126/64 95 10/15/16 18:00 39 H 160/88 94 10/15/16 17:30 40 H 155/79 94 10/15/16 17:08 170/93 92 10/15/16 17:00 28 H 170/93 93 10/15/16 16:32 192/102 08/26/17 16:30 27 H 173/96 94 10/15/16 16:00 26 H 188/98 93 10/15/16 15:53 100 - Physical Examination General: Other (ventilated via trach) HEENT: Positive: PERRL Neck: Positive: neck supple Cardiac: Positive: Regular Rhythm Lungs: Positive: Decreased Breath Sounds Neuro: Positive: Weakness Abdomen: Positive: Soft, Active Bowel Sounds Skin: Positive: Clear Extremities: Absent: edema - Labs and Meds CBC 10/16/16 Range/Units 06:25 WBC 22.5 H (4.5-11.0) K/mm3 RBC 2.76 L (3.65-5.03) M/mm3 Hgb 8.3 L (10.1-14.3) gm/dl Hct 25.2 L (30.3-42.9) % Plt Count 227 (140-440) K/mm3 Comprehensive Metabolic Panel 10/16/16 Range/Units 06:25 Sodium 142 (137-145) mmol/L Potassium 4.0 (3.6-5.0) mmol/L Chloride 99.4 (98-107) mmol/L Carbon Dioxide 24 (22-30) mmol/L BUN 92 H (7-17) mg/dL Creatinine 3.0 H (0.7-1.2) mg/dL Glucose 138 H (65-100) mg/dL Calcium 9.3 (8.4-10.2) mg/dL - Imaging and Cardiology EKG: image reviewed - Allied health notes Allied health notes reviewed: RT
[2016-10-16] MEDS: APRESOLINE IV PRN ×2 (18:12→22:10)
[2016-10-16] MEDS ORDERED: TPN ADULT 2,016 ML IV SCH (20:00)
[2016-10-17] MEDS: HumuLIN R SUB-Q SCH ×4 (00:09→18:30)
[2016-10-17] MEDS: LOPRESSOR IV SCH ×5 (01:56→18:16)
[2016-10-17 05:39] LABS: Hematocrit 25.2 % (30.3-42.9); Mean Corpuscular HGB Conc 32 % (30-34); Mean Corpuscular Hemoglobin 30 pg (28-32); Mean Corpuscular Volume 93 fl (79-97); Platelet Count 240 K/mm3 (140-440); Red Blood Count 2.72 M/mm3 (3.65-5.03)
[2016-10-17 06:09] LABS: Albumin 1.5 g/dL (3.9-5); BUN/Creatinine Ratio 34.66; Calcium 9.9 mg/dL (8.4-10.2)
--- NOTE | 2016-10-17 08:16 | Progress Note ---
Assessment and Plan Assessment and plan: Assessment and plan: Acute hypoxic respiratory failure On mechanical ventilation Status post trach Acute massive left MCA CVA Status post TPA Aspirin/statin Supportive care Toxic metabolic Encephalopathy Multifactorial. Still not following commands Dislodged PEG Status post wedge gastrectomy, repair of gastric perforation, abdominal washout and drain placement Surgery following Severe sepsis with septic shock UTI/candidemia/peritonitis due to gastric perforation from dislodged PEG Off pressors She is now on Meropenem as per ID recommendation Candidemia. completed micofungin Peritonitis Toxic metabolic encephalopathy,unresponsive. neurology following Acute blood loss anemia requiring multiple PRBC transfusions. Hemoglobin 8.0 today . Repeat stool occult blood positive. GI Physician was following, now signed off. Monitor H&H closely, Fever,recurrent due to sepsis. CT Abdomen negative for sepsis Acute on chronic kidney disease, On dialysis prn managed by Nephrology . Creatinine 3.0 today Paroxysmal A. fib Status post failed conversion on 09/25 Continue Amiodarone drip No anticoagulation due to anemia/thrombocytopenia, massive CVA Diabetes mellitus type 2 Insulin/SSI Leukocytosis . WBC 21.4 today minimally improved from yesterday Severe protein caloric malnutrition Currently on TPN Extensive back skin peeling, much improved. Thrombocytopenia DVT prophylaxis SCDs, no pharmacological agent given anemia requiring multiple PRBC transfusions , thrombocytopenia, massive stroke Hyperkalemia. Resolved after dialysis Full code status Prognosis guarded Had a family meeting Monday in which I discussed plan. Present at meeting was the Risk management staff, production manager and myself, patient's son and patients ' sister. addendum; Had another family meeting Monday10/14/16 at 10:00am with Dr. Nazario, myself, Beekeeper and patient's daughter. We discussed diagnosis,plan and prognosis, and all her questions were answered. History Interval history: Patient with multi-organ failure, Still having fever Still does not follow commands Hospitalist Physical - Physical exam Narrative exam: Gen appearance: Trach, not in acute distress HEENT: Atraumatic Neck: Tracheostomy Lungs: Coarse breath sounds, no crackles or wheezes Heart :S1 and S2 irregular, no murmurs, rubs or gallop Abdomen: Soft, surgical drain, dressing over upper abdomen, bowel sounds present ,rectal tube Extremities : bilateral edema, upper and lower ext Neuro: Does not follow commands - Constitutional Vitals: Temp Pulse Resp BP Pulse Ox 98.1 F 112 H 31 H 149/95 99 10/17/16 04:00 10/17/16 07:28 10/17/16 06:00 10/17/16 07:28 10/17/16 07:28 General appearance: Present: mild distress, obese, other (on vent, non- responsive) Results - Labs CBC & Chem 7: 10/17/16 04:24 10/17/16 04:24 Labs: Laboratory Last Values WBC 21.4 K/mm3 (4.5-11.0) H 10/17/16 04:24 RBC 2.72 M/mm3 (3.65-5.03) L 10/17/16 04:24 Hgb 8.0 gm/dl (10.1-14.3) L 10/17/16 04:24 Hct 25.2 % (30.3-42.9) L 10/17/16 04:24 MCV 93 fl (79-97) 10/17/16 04:24 MCH 30 pg (28-32) 10/17/16 04:24 MCHC 32 % (30-34) 10/17/16 04:24 RDW 18.0 % (13.2-15.2) H 10/17/16 04:24 Plt Count 240 K/mm3 (140-440) 10/17/16 04:24 Lymph % (Auto) 6.9 % (13.4-35.0) L 09/21/16 07:45 [place] % (Auto) 0.5 % (0.0-7.3) 10/03/16 05:10 Eos % (Auto) 1.3 % (0.0-4.3) 10/03/16 05:10 Baso % (Auto) 0.2 % (0.0-1.8) 09/21/16 07:45 Lymph # 0.9 K/mm3 (1.2-5.4) L 09/21/16 07:45 [place] # 0.1 K/mm3 (0.0-0.8) 10/03/16 05:10 Eos # 0.2 K/mm3 (0.0-0.4) 10/03/16 05:10 Baso # 0.0 K/mm3 (0.0-0.1) 10/03/16 05:10 Add Manual Diff Complete 10/10/16 05:00 Total Counted 100 10/10/16 05:00 Seg Neutrophils % Drop Wire Builder 10/03/16 05:10 Seg Neuts % (Manual) 61.0 % (40.0-70.0) 10/10/16 05:00 Band Neutrophils % 24.0 % 10/10/16 05:00 Lymphocytes % (Manual) 10.0 % (13.4-35.0) L 10/10/16 05:00 Reactive Lymphs % (Man) 0 % 10/10/16 05:00 Monocytes % (Manual) 2.0 % (0.0-7.3) 10/10/16 05:00 Eosinophils % (Manual) 0 % (0.0-4.3) 10/10/16 05:00 Basophils % (Manual) 0 % (0.0-1.8) 10/10/16 05:00 Metamyelocytes % 3.0 % 10/10/16 05:00 Myelocytes % 0 % 10/10/16 05:00 Promyelocytes % 0 % 10/10/16 05:00 Blast Cells % 0 % 10/10/16 05:00 Nucleated RBC % 4.0 % (0.0-0.9) H 10/10/16 05:00 Seg Neutrophils # 11.9 K/mm3 (1.8-7.7) H 10/03/16 05:10 Seg Neutrophils # Man 11.3 K/mm3 (1.8-7.7) H 10/10/16 05:00 Band Neutrophils # 4.4 K/mm3 10/10/16 05:00 Lymphocytes # (Manual) 1.9 K/mm3 (1.2-5.4) 10/10/16 05:00 Abs React Lymphs (Man) 0.0 K/mm3 10/10/16 05:00 Monocytes # (Manual) 0.4 K/mm3 (0.0-0.8) 10/10/16 05:00 Eosinophils # (Manual) 0.0 K/mm3 (0.0-0.4) 10/10/16 05:00 Basophils # (Manual) 0.0 K/mm3 (0.0-0.1) 10/10/16 05:00 Metamyelocytes # 0.6 K/mm3 10/10/16 05:00 Myelocytes # 0.0 K/mm3 10/10/16 05:00 Promyelocytes # 0.0 K/mm3 10/10/16 05:00 Blast Cells # 0.0 K/mm3 10/10/16 05:00 Pathologist Review 09/13/16 04:00 WBC Morphology Not Reportable 10/10/16 05:00 Hypersegmented Neuts Not Reportable 10/10/16 05:00 Hyposegmented Neuts Not Reportable 10/10/16 05:00 Hypogranular Neuts Not Reportable 10/10/16 05:00 Smudge Cells Not Reportable 10/10/16 05:00 Toxic Granulation Not Reportable 10/10/16 05:00 Toxic Vacuolation Not Reportable 10/10/16 05:00 Dohle Bodies Not Reportable 10/10/16 05:00 Pelger-Huet Anomaly Not Reportable 10/10/16 05:00 Jasmina Rods Not Reportable 10/10/16 05:00 Platelet Estimate Consistent w auto 10/10/16 05:00 Clumped Platelets Not Reportable 10/10/16 05:00 Plt Clumps, EDTA Not Reportable 10/10/16 05:00 Large Platelets Not Reportable 10/10/16 05:00 Giant Platelets Not Reportable 10/10/16 05:00 Platelet Satelliting Not Reportable 10/10/16 05:00 Plt Morphology Comment Not Reportable 10/10/16 05:00 RBC Morphology Not Reportable 10/10/16 05:00 Dimorphic RBCs Not Reportable 10/10/16 05:00 Polychromasia Rare 10/10/16 05:00 Hypochromasia 1+ 10/10/16 05:00 Poikilocytosis Not Reportable 10/10/16 05:00 Anisocytosis 1+ 10/10/16 05:00 Microcytosis Not Reportable 10/10/16 05:00 Macrocytosis 1+ 10/10/16 05:00 Spherocytes Not Reportable 10/10/16 05:00 Pappenheimer Bodies Not Reportable 10/10/16 05:00 Sickle Cells Not Reportable 10/10/16 05:00 Target Cells Not Reportable 10/10/16 05:00 Tear Drop Cells Not Reportable 10/10/16 05:00 Ovalocytes Not Reportable 10/10/16 05:00 Stomatocytes Few 10/06/16 03:50 Helmet Cells Not Reportable 10/10/16 05:00 Monet-Raymond Bodies Not Reportable 10/10/16 05:00 [place] Rings Not Reportable 10/10/16 05:00 Chuck Cells Not Reportable 10/10/16 05:00 Bite Cells Not Reportable 10/10/16 05:00 Crenated Cell Not Reportable 10/10/16 05:00 Elliptocytes Not Reportable 10/10/16 05:00 Acanthocytes (Spur) Not Reportable 10/10/16 05:00 Rouleaux Not Reportable 10/10/16 05:00 Hemoglobin C Crystals Not Reportable 10/10/16 05:00 Schistocytes Not Reportable 10/10/16 05:00 Malaria parasites Not Reportable 10/10/16 05:00 ESR > 140.0 mm/Hr (0-20) 09/08/16 11:48 Jun Bodies Not Reportable 10/10/16 05:00 Hem Pathologist Commnt No 10/10/16 05:00 PT 19.0 Sec. (12.2-14.9) H 10/09/16 03:45 INR 1.51 (0.87-1.13) H 10/09/16 03:45 APTT 33.0 Sec. (24.2-36.6) 10/09/16 03:45 Thrombin Time 16.8 Sec. (15.1-19.6) 09/03/16 00:10 Fibrinogen 750 mg/dl (211-480) H 09/08/16 11:48 Lupus Anticoagulant see below 09/12/16 09:59 LA PTT Baseline See scanned report 09/12/16 09:59 dRVVT Confirm Interp Positive (Negative) H 09/12/16 09:59 dRVVT Screen 50:50 See scanned report 09/12/16 09:59 dRVVT Mix Interpret See scanned report 09/12/16 09:59 Protein C Antigen 122 % (70-140) 09/08/16 15:35 Free Protein S 97 % normal (50-147) 09/08/16 15:35 Total Protein S 109 % (70-140) 09/08/16 15:35 Antithrombin III Ag 100 % (80-120) 09/08/16 15:35 Heparin Anti-Xa, Unfract Negative (Negative) 09/29/16 13:35 Factor V Activity 182 % (65-150) H 09/08/16 15:35 POC ABG pH 7.561 (7.35-7.45) H 10/16/16 20:48 POC ABG pCO2 24.4 (35-45) L 10/16/16 20:48 POC ABG pO2 77 (80-105) L 10/16/16 20:48 POC ABG HCO3 21.9 10/16/16 20:48 POC ABG Total CO2 23 10/16/16 20:48 POC ABG O2 Sat 97 10/16/16 20:48 POC ABG Base Excess 0 10/16/16 20:48 FiO2 25 % 10/16/16 20:48 Sodium 148 mmol/L (137-145) H 10/17/16 04:24 Potassium 4.1 mmol/L (3.6-5.0) 10/17/16 04:24 Chloride 106.2 mmol/L (98-107) 10/17/16 04:24 Carbon Dioxide 22 mmol/L (22-30) 10/17/16 04:24 Anion Gap 24 mmol/L 10/17/16 04:24 BUN 104 mg/dL (7-17) H 10/17/16 04:24 Creatinine 3.0 mg/dL (0.7-1.2) H 10/17/16 04:24 Estimated GFR 20 ml/min 10/17/16 04:24 BUN/Creatinine Ratio 34.66 % 10/17/16 04:24 Glucose 149 mg/dL (65-100) H 10/17/16 04:24 POC Glucose 170 (70-105) H 10/17/16 06:02 Osmolality 351 Mosm/kg 09/16/16 11:47 Lactic Acid 4.50 mmol/L (0.7-2.0) H* 09/28/16 07:25 Calcium 9.9 mg/dL (8.4-10.2) 10/17/16 04:24 Phosphorus 4.10 mg/dL (2.5-4.5) 10/17/16 04:24 Magnesium 2.00 mg/dL (1.7-2.3) 10/17/16 04:24 Total Bilirubin 0.30 mg/dL (0.1-1.2) 10/17/16 04:24 Direct Bilirubin 0.3 mg/dL (0-0.2) H 10/10/16 05:00 Indirect Bilirubin 0.1 mg/dL 10/10/16 05:00 AST 39 units/L (5-40) 10/17/16 04:24 ALT 13 units/L (7-56) 10/17/16 04:24 Alkaline Phosphatase 138 units/L (35-129) H 10/17/16 04:24 Ammonia 27.0 umol/L (25-60) 09/07/16 08:37 Total Creatine Kinase 121 units/L (30-135) 09/29/16 20:12 CK-MB (CK-2) < 1.0 ng/mL (0.0-4.0) 09/29/16 20:12 CK-MB (CK-2) Rel Index 0.8 (0-4) 09/29/16 20:12 Troponin T 0.204 ng/mL (0.00-0.029) H* 09/29/16 20:12 C-Reactive Protein 15.80 mg/dL (0.00-1.30) H 10/11/16 04:15 Total Protein 6.2 g/dL (6.3-8.2) L 10/17/16 04:24 Albumin 1.5 g/dL (3.9-5) L 10/17/16 04:24 Albumin/Globulin Ratio 0.3 % 10/17/16 04:24 Triglycerides 137 mg/dL (2-149) 09/29/16 20:12 Cholesterol 31 mg/dL (50-199) L 09/29/16 20:12 LDL Cholesterol Direct 4 mg/dL (50-130) L 09/29/16 20:12 HDL Cholesterol 3 mg/dL (40-59) L 09/29/16 20:12 Cholesterol/HDL Ratio 10.33 % 09/29/16 20:12 Angiotensin Convert Enz See scanned report 09/08/16 11:48 Renin 0.99 ng/mL/h (0.25-5.82) 10/07/16 10:56 Aldosterone <1 ng/dL () 10/07/16 10:56 Aldosterone/Renin Dir see below 10/07/16 10:56 Serotonin Release Assay See scanned report 09/29/16 13:35 TSH 1.010 mlU/mL (0.270-4.200) 09/07/16 08:37 HCG, Qual Negative (Negative) 09/03/16 00:10 Urine Color [place] (Yellow) 10/07/16 18:30 Urine Turbidity Turbid (Clear) 10/07/16 18:30 Urine pH 7.0 (5.0-7.0) 10/07/16 18:30 Ur Specific [place] 1.012 (1.003-1.030) 10/07/16 18:30 Urine Protein 100 mg/dl mg/dL (Negative) 10/07/16 18:30 Urine Glucose (UA) Neg mg/dL (Negative) 10/07/16 18:30 Urine Ketones Neg mg/dL (Negative) 10/07/16 18:30 Urine Blood Lg (Negative) 10/07/16 18:30 Urine Nitrite Neg (Negative) 10/07/16 18:30 Urine Bilirubin Neg (Negative) 10/07/16 18:30 Urine Urobilinogen < 2.0 mg/dL (<2.0) 10/07/16 18:30 Ur Leukocyte Esterase Lg (Negative) 10/07/16 18:30 Urine WBC (Auto) > 182.0 /HPF (0.0-6.0) H 10/07/16 18:30 Urine RBC (Auto) > 182.0 /HPF (0.0-6.0) 10/07/16 18:30 U Epithel Cells (Auto) 1.0 /HPF (0-13.0) 10/07/16 18:30 Urine Bacteria (Auto) 3+ /HPF (Negative) 10/07/16 18:30 Urine WBC Clumps 2+ /HPF 09/07/16 02:47 Hyaline Casts 4 /LPF 09/07/16 02:47 Urine Mucus Few /HPF 10/07/16 18:30 Urine Yeast (Budding) 3+ /HPF 10/07/16 18:30 Urine Eosinophils None seen (None Seen) 09/07/16 16:00 Urine Total Volume 1350 09/21/16 12:00 Urine Creatinine 54.8 mg/dL (0.1-20.0) H 09/21/16 12:00 Height (in) 67.0 inches 09/21/16 12:00 Weight (lb) 92.0 lbs 09/21/16 12:00 Creatinine Clearance 15 09/21/16 12:00 Urine Sodium 36 mEq/L 09/16/16 19:19 Urine Total Protein 16 mg/dL (5-11.8) H 09/16/16 19:19 Vancomycin Trough 2.3 ug/mL (5.0-20.0) L 09/21/16 13:00 Random Vancomycin 2.3 ug/mL (0-40.0) 09/09/16 03:00 Urine Opiates Screen Presumptive negative 09/03/16 15:11 Urine Methadone Screen Presumptive positive 09/03/16 15:11 Ur Barbiturates Screen Presumptive positive 09/03/16 15:11 Ur Phencyclidine Scrn Presumptive negative 09/03/16 15:11 Ur Amphetamines Screen Presumptive negative 09/03/16 15:11 U Benzodiazepines Scrn Presumptive negative 09/03/16 15:11 Urine Cocaine Screen Presumptive negative 09/03/16 15:11 U Marijuana (THC) Screen Presumptive positive 09/03/16 15:11 Drugs of Abuse Note Disclamer 09/03/16 15:11 Rheumatoid Factor 24 IU/ml (0-13) H 09/08/16 11:48 SAHIL Screen Negative (Negative) 09/07/16 09:20 Proteinase 3 (PR3) Ab <1.0 AI (<1.0) 09/07/16 09:20 Myeloperoxidase Ab <1.0 AI (<1.0) 09/07/16 09:20 Sjogren's Antibody <1.0 AI (<1.0) 09/08/16 15:35 Scl-70 Scleroderma Ab <1.0 AI (<1.0) 09/08/16 15:35 Centromere B Antibody <1.0 AI (<1.0) 09/08/16 12:02 Heparin-induced Plt Ab Negative (Negative) 09/29/16 13:35 UF Heparin High Dose 11 % Release 09/29/16 13:35 SUDHIR UFH Low Dose 0.1 6 % Release 09/29/16 13:35 SUDHIR UFH Low Dose 0.5 8 % Release 09/29/16 13:35 Cardiolipid IgG Ab <14 GPL (<=14) 09/12/16 09:59 Cardiolipid IgA Ab <11 APL (<=11) 09/12/16 09:59 Cardiolipid IgM Ab <12 MPL (<=12) 09/12/16 09:59 Complement C3 148 mg/dL (90-180) 09/07/16 09:20 Complement C4 58 mg/dL (16-47) H 09/07/16 09:20 RPR Nonreactive (Nonreactive) 09/08/16 11:48 Hepatitis A IgM Ab Non-reactive (NonReactive) 09/24/16 14:40 Hep Bs Antigen Non-reactive (Negative) 09/24/16 14:40 Hep B Core IgM Ab Non-reactive (NonReactive) 09/24/16 14:40 Hepatitis C Antibody Non-reactive (NonReactive) 09/24/16 14:40 HIV 1&2 Antibody Rapid Non react (Non React) 09/08/16 11:48 HIV P24 Antigen Non react (Non React) 09/08/16 11:48 Miscellaneous Test Flexitest 1 H 10/13/16 09:20 Blood Type A POSITIVE 10/09/16 07:20 Antibody Screen Negative 10/09/16 07:20 DELORIS Antibody Screen Negative 09/25/16 10:30 Crossmatch See Detail 10/09/16 07:20
--- NOTE | 2016-10-17 09:25 | Progress Note ---
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 * Acute hypoxic respiratory failure * Left renal artery stenosis * Metabolic acidosis - improved * Anemia * Hyponatremia - multifactorial Plan: * BUN elevated - related to GI bleed. HR in 120-130s today - reassess for HD stability in am. SCr and lytes are stable * Pressors prn MAP>65 * Rate control per cardiology * Transfusion of pRBC per primary team * Abx/antifungal per ID * Vent management per critical care * Dose medications for renal function * Avoid potential nephrotoxins Subjective Date of service: 10/17/16 Principal diagnosis: hematochezia Interval history: No acute events overnight. Objective - Vital Signs Vital signs: Vital Signs - 12hr 10/16/16 10/16/16 10/16/16 21:30 22:00 22:09 Temperature Pulse Rate 129 H 127 H 138 H Pulse Rate [ From Monitor] Respiratory 25 H 21 Rate Respiratory 24 Rate [ Generalized] Blood Pressure 154/101 177/105 177/105 O2 Sat by Pulse 100 100 Oximetry O2 Sat by Pulse Oximetry [ Assessment] 10/16/16 10/16/16 10/16/16 22:10 22:16 22:30 Temperature Pulse Rate 138 H 121 H 128 H Pulse Rate [ From Monitor] Respiratory 32 H 35 H Rate Respiratory Rate [ Generalized] Blood Pressure 177/105 177/105 177/105 O2 Sat by Pulse 100 99 Oximetry O2 Sat by Pulse Oximetry [ Assessment] 10/16/16 10/16/16 10/17/16 23:00 23:30 00:00 Temperature 97.8 F Pulse Rate 134 H 140 H 129 H Pulse Rate [ From Monitor] Respiratory 28 H 31 H 29 H Rate Respiratory Rate [ Generalized] Blood Pressure 139/88 139/88 142/92 O2 Sat by Pulse 99 99 99 Oximetry O2 Sat by Pulse Oximetry [ Assessment] 10/17/16 10/17/16 10/17/16 00:30 00:37 01:00 Temperature 98.1 F Pulse Rate 141 H 127 H Pulse Rate [ From Monitor] Respiratory 28 H 26 H Rate Respiratory Rate [ Generalized] Blood Pressure 142/92 158/95 O2 Sat by Pulse 99 99 Oximetry O2 Sat by Pulse Oximetry [ Assessment] 10/17/16 10/17/16 10/17/16 01:30 01:56 01:58 Temperature Pulse Rate 145 H 137 H Pulse Rate [ From Monitor] Respiratory 24 Rate Respiratory Rate [ Generalized] Blood Pressure 158/95 158/95 O2 Sat by Pulse 99 Oximetry O2 Sat by Pulse 100 Oximetry [ Assessment] 10/17/16 10/17/16 10/17/16 02:00 02:31 03:00 Temperature Pulse Rate 112 H 128 H 125 H Pulse Rate [ From Monitor] Respiratory 24 30 H 28 H Rate Respiratory Rate [ Generalized] Blood Pressure 158/95 151/85 O2 Sat by Pulse 99 99 99 Oximetry O2 Sat by Pulse Oximetry [ Assessment] 10/17/16 10/17/16 10/17/16 03:31 04:00 04:21 Temperature 98.1 F Pulse Rate 129 H 131 H 145 H Pulse Rate [ From Monitor] Respiratory 27 H 28 H Rate Respiratory Rate [ Generalized] Blood Pressure 175/90 155/92 155/92 O2 Sat by Pulse 99 99 98 Oximetry O2 Sat by Pulse Oximetry [ Assessment] 10/17/16 10/17/16 10/17/16 04:31 05:00 05:31 Temperature Pulse Rate 133 H 127 H 132 H Pulse Rate [ From Monitor] Respiratory 27 H 34 H 20 Rate Respiratory Rate [ Generalized] Blood Pressure 155/92 155/84 155/84 O2 Sat by Pulse 99 99 99 Oximetry O2 Sat by Pulse Oximetry [ Assessment] 10/17/16 10/17/16 10/17/16 06:00 06:14 07:00 Temperature Pulse Rate 140 H 136 H 137 H Pulse Rate [ From Monitor] Respiratory 31 H 24 Rate Respiratory Rate [ Generalized] Blood Pressure 149/82 140/82 149/95 O2 Sat by Pulse 99 99 Oximetry O2 Sat by Pulse Oximetry [ Assessment] 10/17/16 10/17/16 10/17/16 07:28 08:00 08:01 Temperature 97.3 F L Pulse Rate 112 H 118 H Pulse Rate [ 125 H From Monitor] Respiratory 28 H 26 H Rate Respiratory Rate [ Generalized] Blood Pressure 149/95 161/100 O2 Sat by Pulse 99 100 99 Oximetry O2 Sat by Pulse Oximetry [ Assessment] - General Appearance General appearance: intubated (via trach) EENT: ATNC Respiratory: Present: Other (coarse breath sounds) Cardiology: tachycardia Gastrointestinal: other (+JUAN drain w/ purulent drainage; purulent drainage from incision site right lower quadrant; area is indurated.) Integumentary: no rash Musculoskeletal: other (trace edema) - Lab 10/17/16 04:24 10/17/16 04:24 Most recent lab results Calcium 9.9 mg/dL (8.4-10.2) 10/17/16 04:24 Phosphorus 4.10 mg/dL (2.5-4.5) 10/17/16 04:24 Magnesium 2.00 mg/dL (1.7-2.3) 10/17/16 04:24 Urine Creatinine 54.8 mg/dL (0.1-20.0) H 09/21/16 12:00 Urine Sodium 36 mEq/L 09/16/16 19:19 Urine Total Protein 16 mg/dL (5-11.8) H 09/16/16 19:19
[2016-10-17] MEDS: PROTONIX IV SCH (10:02)
--- NOTE | 2016-10-17 10:04 | Progress Note ---
Assessment and Plan (1) Acute respiratory failure with hypoxia Current Visit: Yes Status: Acute Plan to address problem: - continue aspiration precautions / address VAP bundles - continue to wean oxygen for MAP > 94% - continue bronchodilators and pulmonary toilet - s/p tracheostomy - continue daily PSV trials as tolerated (2) Acute CVA (cerebrovascular accident) Current Visit: Yes Status: Acute Plan to address problem: - out of tpA window (initially stopped due to uncontrolled HTN) - Left MCA teritory stroke with some midline shift on last CT - seen by neurology and prognosis for recovery of mental status guarded to poor - optimizing secondary prevention modalities now (BP, lipid anti-platelet therapy) - off systemic steroids now (started earlier for edema) (3) Hypertensive emergency Current Visit: Yes Status: Acute Plan to address problem: - stopped all antihypertensives while septic - following cllinically (4) Obesity (BMI 35.0-39.9 without comorbidity) Current Visit: Yes Status: Chronic Plan to address problem: - nutrition consult placed for enteral formulation - on TPN now - follow clinically (5) Type 2 diabetes mellitus Current Visit: Yes Status: Chronic Qualifiers: Diabetes mellitus complication status: D Diabetes mellitus complication detail: D Diabetic retinopathy severity: D Proliferative retinopathy type: P Diabetes mellitus macular edema: D Diabetes mellitus assisted insulin use : D Laterality: L Chronic kidney disease stage: C Plan to address problem: - continue SSI - discontinued lantus re: hypoglycemia (6) Leukocytosis (leucocytosis) Current Visit: Yes Status: Acute Qualifiers: Leukocytosis type: leukemoid reaction Qualified Code(s): D72.823 - Leukemoid reaction Plan to address problem: - completed cancidas and de-escalate per ID recs - leucocytosis persistent but now trending down (7) Agitation Current Visit: Yes Status: Acute Plan to address problem: - prn sedation / analgesia - tapered off seroquel for now (8) Atrial fibrillation Current Visit: Yes Status: Acute Qualifiers: Atrial fibrillation type: A Plan to address problem: - failed cardioversion earlier - cardiology evaluation ongoing - back in A-fib - continue amiodarone drip (change to p.o. once tolerating enterally) - on IV metoprolol (9) JUANITA (acute kidney injury) Current Visit: Yes Status: Acute Plan to address problem: - on Dialysis now - continue HD/UF per nephrology recommendations - none today but remains oliguric (10) Pyrexia of unknown origin Current Visit: Yes Status: Acute Plan to address problem: - dopplers negative for DVT - continue to treat with Anti-infectives (11) Severe sepsis Current Visit: Yes Status: Acute Plan to address problem: - resume vasopressors for MAP < 60mmHg not responsive to volume - all central vascular access has been discontinued after fungemia reported - care plan formulated with ID input - BC's from 09/27/16 growing in 1of 2 but still no ID yet - coomplete micafungin per ID recs and stop date - wound care nurse also managing back wounds - clinically stable and hemodynamically improved - will discuss staple removal and drainage of RLQ collection (12) Emesis Current Visit: Yes Status: Acute Qualifiers: Vomiting type: V Vomiting Intractability: V Nausea presence: N Plan to address problem: - s/p surgical repair of gastric perforation - continue TPN for now - follow surgery recommendations (13) Discharge planning issues Current Visit: Yes Status: Acute Plan to address problem: - she remains critically ill on life sustaining interventions including MVS and at risk for further acute deterioration including .....35' CCT ....assisted prognosis is guarded Subjective Date of service: 10/17/16 Principal diagnosis: Acute resp failure on MVS; S/P Acute CVA; Acute Encephalopathy; JUANITA Interval history: Seen and examined at bedside; 24 hour events reviewed; nursing and respiratory care staff consulted; no adverse overnight events reported to me; resting in bed ; tolerating PSV trials tenuously now; remains tachycardic but BP's holding up and off vasopressors; RLQ incision with drainage of pus-like material around bo; no gross bleeding Objective Vital Signs - 12hr 10/16/16 10/16/16 10/16/16 22:09 22:10 22:16 Temperature Pulse Rate 138 H 138 H 121 H Pulse Rate [ From Monitor] Respiratory 32 H Rate Blood Pressure 177/105 177/105 177/105 O2 Sat by Pulse 100 Oximetry O2 Sat by Pulse Oximetry [ Assessment] 10/16/16 10/16/16 10/16/16 22:30 23:00 23:30 Temperature Pulse Rate 128 H 134 H 140 H Pulse Rate [ From Monitor] Respiratory 35 H 28 H 31 H Rate Blood Pressure 177/105 139/88 139/88 O2 Sat by Pulse 99 99 99 Oximetry O2 Sat by Pulse Oximetry [ Assessment] 10/17/16 10/17/16 10/17/16 00:00 00:30 00:37 Temperature 97.8 F 98.1 F Pulse Rate 129 H 141 H Pulse Rate [ From Monitor] Respiratory 29 H 28 H Rate Blood Pressure 142/92 142/92 O2 Sat by Pulse 99 99 Oximetry O2 Sat by Pulse Oximetry [ Assessment] 10/17/16 10/17/16 10/17/16 01:00 01:30 01:56 Temperature Pulse Rate 127 H 145 H 137 H Pulse Rate [ From Monitor] Respiratory 26 H 24 Rate Blood Pressure 158/95 158/95 158/95 O2 Sat by Pulse 99 99 Oximetry O2 Sat by Pulse Oximetry [ Assessment] 10/17/16 10/17/16 10/17/16 01:58 02:00 02:31 Temperature Pulse Rate 112 H 128 H Pulse Rate [ From Monitor] Respiratory 24 30 H Rate Blood Pressure 158/95 O2 Sat by Pulse 99 99 Oximetry O2 Sat by Pulse 100 Oximetry [ Assessment] 10/17/16 10/17/16 10/17/16 03:00 03:31 04:00 Temperature 98.1 F Pulse Rate 125 H 129 H 131 H Pulse Rate [ From Monitor] Respiratory 28 H 27 H 28 H Rate Blood Pressure 151/85 175/90 155/92 O2 Sat by Pulse 99 99 99 Oximetry O2 Sat by Pulse Oximetry [ Assessment] 10/17/16 10/17/16 10/17/16 04:21 04:31 05:00 Temperature Pulse Rate 145 H 133 H 127 H Pulse Rate [ From Monitor] Respiratory 27 H 34 H Rate Blood Pressure 155/92 155/92 155/84 O2 Sat by Pulse 98 99 99 Oximetry O2 Sat by Pulse Oximetry [ Assessment] 10/17/16 10/17/16 10/17/16 05:31 06:00 06:14 Temperature Pulse Rate 132 H 140 H 136 H Pulse Rate [ From Monitor] Respiratory 20 31 H Rate Blood Pressure 155/84 149/82 140/82 O2 Sat by Pulse 99 99 Oximetry O2 Sat by Pulse Oximetry [ Assessment] 10/17/16 10/17/16 10/17/16 07:00 07:28 08:00 Temperature 97.3 F L Pulse Rate 137 H 112 H Pulse Rate [ 125 H From Monitor] Respiratory 24 28 H Rate Blood Pressure 149/95 149/95 O2 Sat by Pulse 99 99 100 Oximetry O2 Sat by Pulse Oximetry [ Assessment] 10/17/16 10/17/16 08:01 10:01 Temperature Pulse Rate 118 H 130 H Pulse Rate [ From Monitor] Respiratory 26 H Rate Blood Pressure 161/100 131/86 O2 Sat by Pulse 99 Oximetry O2 Sat by Pulse Oximetry [ Assessment] Constitutional: no acute distress, other (grimaces with moving) Eyes: non-icteric, other (tracheostomy tube in midline of neck) ENT: oropharynx moist Neck: supple, no lymphadenopathy Effort: mildly labored Ascultation: Bilateral: rales Cardiovascular: regular rate and rhythm Gastrointestinal: hypoactive bowel sounds, soft, non-tender, non-distended Integumentary: other (erythema to skin of back with some healing areas; no obvious TEN's features) Extremities: no cyanosis, no edema, pulses normal, no ischemia or petechiae Neurologic: pupils equal and round, other (sedated) Psychiatric: other (unable to assess) CBC and BMP: 10/19/16 04:00 10/19/16 04:00 ABG, PT/INR, D-dimer: ABG POC ABG pH 7.561 (7.35-7.45) H 10/16/16 20:48 POC ABG pCO2 24.4 (35-45) L 10/16/16 20:48 POC ABG pO2 77 (80-105) L 10/16/16 20:48 POC ABG HCO3 21.9 10/16/16 20:48 POC ABG Total CO2 23 10/16/16 20:48 POC ABG O2 Sat 97 10/16/16 20:48 PT/INR, D-dimer PT 19.0 Sec. (12.2-14.9) H 10/09/16 03:45 INR 1.51 (0.87-1.13) H 10/09/16 03:45 Abnormal lab findings: Abnormal Labs 09/03/16 09/03/16 09/03/16 12:12 15:07 16:20 WBC RBC Hgb Hct MCV MCH MCHC RDW Plt Count Lymph % (Auto) [place] % (Auto) Lymph # [place] # Seg Neutrophils % Seg Neuts % (Manual) Lymphocytes % (Manual) Monocytes % (Manual) Eosinophils % (Manual) Basophils % (Manual) Nucleated RBC % Seg Neutrophils # Seg Neutrophils # Man Lymphocytes # (Manual) Monocytes # (Manual) Eosinophils # (Manual) PT INR Fibrinogen dRVVT Confirm Interp Factor V Activity POC ABG pH 7.452 H POC ABG pCO2 POC ABG pO2 Sodium Potassium Chloride Carbon Dioxide BUN Creatinine Glucose POC Glucose 178 H Lactic Acid Calcium Phosphorus 2.20 L Magnesium 1.60 L Direct Bilirubin ALT Alkaline Phosphatase Troponin T C-Reactive Protein Total Protein Albumin Triglycerides Cholesterol LDL Cholesterol Direct HDL Cholesterol Urine WBC (Auto) Urine Creatinine Urine Total Protein Vancomycin Trough Rheumatoid Factor Complement C4 Miscellaneous Test Crossmatch 09/03/16 09/03/16 09/03/16 17:57 17:58 23:50 WBC RBC Hgb Hct MCV MCH MCHC RDW Plt Count Lymph % (Auto) [place] % (Auto) Lymph # [place] # Seg Neutrophils % Seg Neuts % (Manual) Lymphocytes % (Manual) Monocytes % (Manual) Eosinophils % (Manual) Basophils % (Manual) Nucleated RBC % Seg Neutrophils # Seg Neutrophils # Man Lymphocytes # (Manual) Monocytes # (Manual) Eosinophils # (Manual) PT INR Fibrinogen dRVVT Confirm Interp Factor V Activity POC ABG pH POC ABG pCO2 POC ABG pO2 Sodium Potassium Chloride Carbon Dioxide BUN Creatinine Glucose POC Glucose 162 H 145 H Lactic Acid Calcium Phosphorus 2.30 L Magnesium Direct Bilirubin ALT Alkaline Phosphatase Troponin T C-Reactive Protein Total Protein Albumin Triglycerides Cholesterol LDL Cholesterol Direct HDL Cholesterol Urine WBC (Auto) Urine Creatinine Urine Total Protein Vancomycin Trough Rheumatoid Factor Complement C4 Miscellaneous Test Crossmatch 09/04/16 09/04/16 09/04/16 03:31 03:31 05:42 WBC RBC Hgb 9.7 L D Hct MCV 72 L MCH 23 L MCHC RDW 17.5 H Plt Count Lymph % (Auto) 11.1 L [place] % (Auto) Lymph # [place] # Seg Neutrophils % 84.3 H Seg Neuts % (Manual) Lymphocytes % (Manual) Monocytes % (Manual) Eosinophils % (Manual) Basophils % (Manual) Nucleated RBC % Seg Neutrophils # 8.9 H Seg Neutrophils # Man Lymphocytes # (Manual) Monocytes # (Manual) Eosinophils # (Manual) PT INR Fibrinogen dRVVT Confirm Interp Factor V Activity POC ABG pH POC ABG pCO2 POC ABG pO2 Sodium 135 L Potassium 2.9 L* Chloride 97.2 L Carbon Dioxide 19 L BUN Creatinine 1.7 H Glucose 170 H POC Glucose 152 H Lactic Acid Calcium Phosphorus Magnesium Direct Bilirubin ALT Alkaline Phosphatase Troponin T C-Reactive Protein Total Protein Albumin Triglycerides 160 H Cholesterol LDL Cholesterol Direct HDL Cholesterol 31 L Urine WBC (Auto) Urine Creatinine Urine Total Protein Vancomycin Trough Rheumatoid Factor Complement C4 Miscellaneous Test Crossmatch 09/04/16 09/04/16 09/04/16 11:34 17:46 23:29 WBC RBC Hgb Hct MCV MCH MCHC RDW Plt Count Lymph % (Auto) [place] % (Auto) Lymph # [place] # Seg Neutrophils % Seg Neuts % (Manual) Lymphocytes % (Manual) Monocytes % (Manual) Eosinophils % (Manual) Basophils % (Manual) Nucleated RBC % Seg Neutrophils # Seg Neutrophils # Man Lymphocytes # (Manual) Monocytes # (Manual) Eosinophils # (Manual) PT INR Fibrinogen dRVVT Confirm Interp Factor V Activity POC ABG pH POC ABG pCO2 POC ABG pO2 Sodium Potassium Chloride Carbon Dioxide BUN Creatinine Glucose POC Glucose 165 H 210 H 139 H Lactic Acid Calcium Phosphorus Magnesium Direct Bilirubin ALT Alkaline Phosphatase Troponin T C-Reactive Protein Total Protein Albumin Triglycerides Cholesterol LDL Cholesterol Direct HDL Cholesterol Urine WBC (Auto) Urine Creatinine Urine Total Protein Vancomycin Trough Rheumatoid Factor Complement C4 Miscellaneous Test Crossmatch 09/05/16 09/05/16 09/05/16 04:05 04:05 05:38 WBC RBC Hgb Hct MCV 76 L D MCH 23 L MCHC RDW 17.8 H Plt Count Lymph % (Auto) [place] % (Auto) Lymph # [place] # Seg Neutrophils % Seg Neuts % (Manual) Lymphocytes % (Manual) Monocytes % (Manual) Eosinophils % (Manual) Basophils % (Manual) Nucleated RBC % Seg Neutrophils # Seg Neutrophils # Man Lymphocytes # (Manual) Monocytes # (Manual) Eosinophils # (Manual) PT INR Fibrinogen dRVVT Confirm Interp Factor V Activity POC ABG pH POC ABG pCO2 POC ABG pO2 Sodium 134 L Potassium Chloride Carbon Dioxide 18 L BUN Creatinine 1.8 H Glucose 192 H POC Glucose 175 H Lactic Acid Calcium Phosphorus Magnesium Direct Bilirubin ALT Alkaline Phosphatase Troponin T C-Reactive Protein Total Protein Albumin Triglycerides Cholesterol LDL Cholesterol Direct HDL Cholesterol Urine WBC (Auto) Urine Creatinine Urine Total Protein Vancomycin Trough Rheumatoid Factor Complement C4 Miscellaneous Test Crossmatch 09/05/16 09/05/16 09/05/16 11:38 17:48 23:22 WBC RBC Hgb Hct MCV MCH MCHC RDW Plt Count Lymph % (Auto) [place] % (Auto) Lymph # [place] # Seg Neutrophils % Seg Neuts % (Manual) Lymphocytes % (Manual) Monocytes % (Manual) Eosinophils % (Manual) Basophils % (Manual) Nucleated RBC % Seg Neutrophils # Seg Neutrophils # Man Lymphocytes # (Manual) Monocytes # (Manual) Eosinophils # (Manual) PT INR Fibrinogen dRVVT Confirm Interp Factor V Activity POC ABG pH POC ABG pCO2 POC ABG pO2 Sodium Potassium Chloride Carbon Dioxide BUN Creatinine Glucose POC Glucose 164 H 186 H 195 H Lactic Acid Calcium Phosphorus Magnesium Direct Bilirubin ALT Alkaline Phosphatase Troponin T C-Reactive Protein Total Protein Albumin Triglycerides Cholesterol LDL Cholesterol Direct HDL Cholesterol Urine WBC (Auto) Urine Creatinine Urine Total Protein Vancomycin Trough Rheumatoid Factor Complement C4 Miscellaneous Test Crossmatch 09/06/16 09/06/16 09/06/16 04:12 05:59 07:32 WBC RBC Hgb Hct MCV MCH MCHC RDW Plt Count Lymph % (Auto) [place] % (Auto) Lymph # [place] # Seg Neutrophils % Seg Neuts % (Manual) Lymphocytes % (Manual) Monocytes % (Manual) Eosinophils % (Manual) Basophils % (Manual) Nucleated RBC % Seg Neutrophils # Seg Neutrophils # Man Lymphocytes # (Manual) Monocytes # (Manual) Eosinophils # (Manual) PT INR Fibrinogen dRVVT Confirm Interp Factor V Activity POC ABG pH 7.514 H POC ABG pCO2 29.1 L POC ABG pO2 72 L Sodium 133 L Potassium 3.4 L Chloride 94.9 L Carbon Dioxide 19 L BUN 30 H Creatinine 2.1 H Glucose 139 H POC Glucose 146 H Lactic Acid Calcium Phosphorus Magnesium Direct Bilirubin ALT Alkaline Phosphatase Troponin T C-Reactive Protein Total Protein Albumin Triglycerides Cholesterol LDL Cholesterol Direct HDL Cholesterol Urine WBC (Auto) Urine Creatinine Urine Total Protein Vancomycin Trough Rheumatoid Factor Complement C4 Miscellaneous Test Crossmatch 09/06/16 09/06/16 09/06/16 11:57 17:58 19:02 WBC RBC Hgb Hct MCV MCH MCHC RDW Plt Count Lymph % (Auto) [place] % (Auto) Lymph # [place] # Seg Neutrophils % Seg Neuts % (Manual) Lymphocytes % (Manual) Monocytes % (Manual) Eosinophils % (Manual) Basophils % (Manual) Nucleated RBC % Seg Neutrophils # Seg Neutrophils # Man Lymphocytes # (Manual) Monocytes # (Manual) Eosinophils # (Manual) PT INR Fibrinogen dRVVT Confirm Interp Factor V Activity POC ABG pH 7.465 H POC ABG pCO2 32.0 L POC ABG pO2 Sodium Potassium Chloride Carbon Dioxide BUN Creatinine Glucose POC Glucose 165 H 160 H Lactic Acid Calcium Phosphorus Magnesium Direct Bilirubin ALT Alkaline Phosphatase Troponin T C-Reactive Protein Total Protein Albumin Triglycerides Cholesterol LDL Cholesterol Direct HDL Cholesterol Urine WBC (Auto) Urine Creatinine Urine Total Protein Vancomycin Trough Rheumatoid Factor Complement C4 Miscellaneous Test Crossmatch 09/06/16 09/07/16 09/07/16 23:45 02:47 02:47 WBC RBC Hgb Hct MCV MCH MCHC RDW Plt Count Lymph % (Auto) [place] % (Auto) Lymph # [place] # Seg Neutrophils % Seg Neuts % (Manual) Lymphocytes % (Manual) Monocytes % (Manual) Eosinophils % (Manual) Basophils % (Manual) Nucleated RBC % Seg Neutrophils # Seg Neutrophils # Man Lymphocytes # (Manual) Monocytes # (Manual) Eosinophils # (Manual) PT INR Fibrinogen dRVVT Confirm Interp Factor V Activity POC ABG pH POC ABG pCO2 POC ABG pO2 Sodium Potassium Chloride Carbon Dioxide BUN Creatinine Glucose POC Glucose 204 H Lactic Acid Calcium Phosphorus Magnesium Direct Bilirubin ALT Alkaline Phosphatase Troponin T C-Reactive Protein Total Protein Albumin Triglycerides Cholesterol LDL Cholesterol Direct HDL Cholesterol Urine WBC (Auto) 68.0 H Urine Creatinine 106.1 H Urine Total Protein Vancomycin Trough Rheumatoid Factor Complement C4 Miscellaneous Test Crossmatch 09/07/16 09/07/16 09/07/16 04:50 06:19 06:39 WBC RBC Hgb Hct MCV MCH MCHC RDW Plt Count Lymph % (Auto) [place] % (Auto) Lymph # [place] # Seg Neutrophils % Seg Neuts % (Manual) Lymphocytes % (Manual) Monocytes % (Manual) Eosinophils % (Manual) Basophils % (Manual) Nucleated RBC % Seg Neutrophils # Seg Neutrophils # Man Lymphocytes # (Manual) Monocytes # (Manual) Eosinophils # (Manual) PT INR Fibrinogen dRVVT Confirm Interp Factor V Activity POC ABG pH 7.457 H POC ABG pCO2 32.1 L POC ABG pO2 76 L Sodium 132 L Potassium Chloride 94.7 L Carbon Dioxide BUN 53 H Creatinine 2.9 H Glucose 151 H POC Glucose 149 H Lactic Acid Calcium Phosphorus Magnesium Direct Bilirubin ALT Alkaline Phosphatase Troponin T C-Reactive Protein Total Protein Albumin Triglycerides Cholesterol LDL Cholesterol Direct HDL Cholesterol Urine WBC (Auto) Urine Creatinine Urine Total Protein Vancomycin Trough Rheumatoid Factor Complement C4 Miscellaneous Test Crossmatch 09/07/16 09/07/16 09/07/16 09:20 11:43 11:43 WBC 19.4 H RBC Hgb 8.3 L Hct 26.4 L D MCV 72 L D MCH 22 L MCHC RDW 17.9 H Plt Count Lymph % (Auto) 8.5 L [place] % (Auto) Lymph # [place] # 1.0 H Seg Neutrophils % 85.8 H Seg Neuts % (Manual) Lymphocytes % (Manual) Monocytes % (Manual) Eosinophils % (Manual) Basophils % (Manual) Nucleated RBC % Seg Neutrophils # 16.6 H Seg Neutrophils # Man Lymphocytes # (Manual) Monocytes # (Manual) Eosinophils # (Manual) PT INR Fibrinogen dRVVT Confirm Interp Factor V Activity POC ABG pH POC ABG pCO2 POC ABG pO2 Sodium 134 L Potassium Chloride 97.2 L Carbon Dioxide 20 L BUN 58 H Creatinine 2.9 H Glucose 147 H POC Glucose Lactic Acid Calcium Phosphorus 2.40 L Magnesium 2.40 H Direct Bilirubin ALT Alkaline Phosphatase Troponin T C-Reactive Protein Total Protein 5.8 L Albumin 2.2 L Triglycerides Cholesterol LDL Cholesterol Direct HDL Cholesterol Urine WBC (Auto) Urine Creatinine Urine Total Protein Vancomycin Trough Rheumatoid Factor Complement C4 58 H Miscellaneous Test Crossmatch 09/07/16 09/07/16 09/07/16 11:50 16:00 17:31 WBC RBC Hgb Hct MCV MCH MCHC RDW Plt Count Lymph % (Auto) [place] % (Auto) Lymph # [place] # Seg Neutrophils % Seg Neuts % (Manual) Lymphocytes % (Manual) Monocytes % (Manual) Eosinophils % (Manual) Basophils % (Manual) Nucleated RBC % Seg Neutrophils # Seg Neutrophils # Man Lymphocytes # (Manual) Monocytes # (Manual) Eosinophils # (Manual) PT INR Fibrinogen dRVVT Confirm Interp Factor V Activity POC ABG pH POC ABG pCO2 POC ABG pO2 158 H Sodium Potassium Chloride Carbon Dioxide BUN Creatinine Glucose POC Glucose 175 H Lactic Acid Calcium Phosphorus Magnesium Direct Bilirubin ALT Alkaline Phosphatase Troponin T C-Reactive Protein Total Protein Albumin Triglycerides Cholesterol LDL Cholesterol Direct HDL Cholesterol Urine WBC (Auto) Urine Creatinine 66.3 H Urine Total Protein Vancomycin Trough Rheumatoid Factor Complement C4 Miscellaneous Test Crossmatch 09/07/16 09/08/16 09/08/16 23:50 05:46 06:18 WBC 17.8 H RBC 3.58 L Hgb 8.1 L Hct 25.5 L MCV 71 L MCH 23 L MCHC RDW 18.4 H Plt Count Lymph % (Auto) [place] % (Auto) Lymph # [place] # Seg Neutrophils % Seg Neuts % (Manual) 92.0 H Lymphocytes % (Manual) 6.0 L Monocytes % (Manual) Eosinophils % (Manual) Basophils % (Manual) Nucleated RBC % Seg Neutrophils # Seg Neutrophils # Man 16.4 H Lymphocytes # (Manual) 1.1 L Monocytes # (Manual) Eosinophils # (Manual) PT INR Fibrinogen dRVVT Confirm Interp Factor V Activity POC ABG pH POC ABG pCO2 34.3 L POC ABG pO2 71 L Sodium Potassium Chloride Carbon Dioxide BUN Creatinine Glucose POC Glucose 216 H Lactic Acid Calcium Phosphorus Magnesium Direct Bilirubin ALT Alkaline Phosphatase Troponin T C-Reactive Protein Total Protein Albumin Triglycerides Cholesterol LDL Cholesterol Direct HDL Cholesterol Urine WBC (Auto) Urine Creatinine Urine Total Protein Vancomycin Trough Rheumatoid Factor Complement C4 Miscellaneous Test Crossmatch 09/08/16 09/08/16 09/08/16 06:18 06:51 10:55 WBC RBC Hgb Hct MCV MCH MCHC RDW Plt Count Lymph % (Auto) [place] % (Auto) Lymph # [place] # Seg Neutrophils % Seg Neuts % (Manual) Lymphocytes % (Manual) Monocytes % (Manual) Eosinophils % (Manual) Basophils % (Manual) Nucleated RBC % Seg Neutrophils # Seg Neutrophils # Man Lymphocytes # (Manual) Monocytes # (Manual) Eosinophils # (Manual) PT INR Fibrinogen dRVVT Confirm Interp Factor V Activity POC ABG pH POC ABG pCO2 POC ABG pO2 Sodium 133 L Potassium Chloride 96.9 L Carbon Dioxide 20 L BUN 63 H Creatinine 2.7 H Glucose 195 H POC Glucose 204 H 169 H Lactic Acid Calcium Phosphorus Magnesium Direct Bilirubin ALT Alkaline Phosphatase Troponin T C-Reactive Protein Total Protein Albumin Triglycerides Cholesterol LDL Cholesterol Direct HDL Cholesterol Urine WBC (Auto) Urine Creatinine Urine Total Protein Vancomycin Trough Rheumatoid Factor Complement C4 Miscellaneous Test Crossmatch 09/08/16 09/08/16 09/08/16 11:48 11:48 11:48 WBC RBC Hgb Hct MCV MCH MCHC RDW Plt Count Lymph % (Auto) [place] % (Auto) Lymph # [place] # Seg Neutrophils % Seg Neuts % (Manual) Lymphocytes % (Manual) Monocytes % (Manual) Eosinophils % (Manual) Basophils % (Manual) Nucleated RBC % Seg Neutrophils # Seg Neutrophils # Man Lymphocytes # (Manual) Monocytes # (Manual) Eosinophils # (Manual) PT INR Fibrinogen 750 H dRVVT Confirm Interp Factor V Activity POC ABG pH POC ABG pCO2 POC ABG pO2 Sodium Potassium Chloride Carbon Dioxide BUN Creatinine Glucose POC Glucose Lactic Acid Calcium Phosphorus Magnesium Direct Bilirubin ALT Alkaline Phosphatase Troponin T C-Reactive Protein 15.70 H Total Protein Albumin Triglycerides Cholesterol LDL Cholesterol Direct HDL Cholesterol Urine WBC (Auto) Urine Creatinine Urine Total Protein Vancomycin Trough Rheumatoid Factor 24 H Complement C4 Miscellaneous Test Crossmatch 09/08/16 09/08/16 09/09/16 15:35 18:25 00:24 WBC RBC Hgb Hct MCV MCH MCHC RDW Plt Count Lymph % (Auto) [place] % (Auto) Lymph # [place] # Seg Neutrophils % Seg Neuts % (Manual) Lymphocytes % (Manual) Monocytes % (Manual) Eosinophils % (Manual) Basophils % (Manual) Nucleated RBC % Seg Neutrophils # Seg Neutrophils # Man Lymphocytes # (Manual) Monocytes # (Manual) Eosinophils # (Manual) PT INR Fibrinogen dRVVT Confirm Interp Factor V Activity 182 H POC ABG pH POC ABG pCO2 POC ABG pO2 Sodium Potassium Chloride Carbon Dioxide BUN Creatinine Glucose POC Glucose 184 H 216 H Lactic Acid Calcium Phosphorus Magnesium Direct Bilirubin ALT Alkaline Phosphatase Troponin T C-Reactive Protein Total Protein Albumin Triglycerides Cholesterol LDL Cholesterol Direct HDL Cholesterol Urine WBC (Auto) Urine Creatinine Urine Total Protein Vancomycin Trough Rheumatoid Factor Complement C4 Miscellaneous Test Crossmatch 09/09/16 09/09/16 09/09/16 03:00 03:00 04:04 WBC 27.9 H RBC Hgb 8.7 L Hct 28.1 L MCV 72 L MCH 22 L MCHC RDW 18.4 H Plt Count 485 H Lymph % (Auto) [place] % (Auto) Lymph # [place] # Seg Neutrophils % Seg Neuts % (Manual) 77.0 H Lymphocytes % (Manual) 9.0 L Monocytes % (Manual) Eosinophils % (Manual) Basophils % (Manual) Nucleated RBC % Seg Neutrophils # Seg Neutrophils # Man 21.5 H Lymphocytes # (Manual) Monocytes # (Manual) 2.0 H Eosinophils # (Manual) PT INR Fibrinogen dRVVT Confirm Interp Factor V Activity POC ABG pH POC ABG pCO2 POC ABG pO2 121 H Sodium 135 L Potassium Chloride 96.3 L Carbon Dioxide 21 L BUN 83 H Creatinine 3.0 H Glucose 135 H POC Glucose Lactic Acid Calcium Phosphorus Magnesium Direct Bilirubin ALT Alkaline Phosphatase Troponin T C-Reactive Protein Total Protein Albumin Triglycerides Cholesterol LDL Cholesterol Direct HDL Cholesterol Urine WBC (Auto) Urine Creatinine Urine Total Protein Vancomycin Trough Rheumatoid Factor Complement C4 Miscellaneous Test Crossmatch 09/09/16 09/09/16 09/09/16 05:41 11:55 14:13 WBC RBC Hgb Hct MCV MCH MCHC RDW Plt Count Lymph % (Auto) [place] % (Auto) Lymph # [place] # Seg Neutrophils % Seg Neuts % (Manual) Lymphocytes % (Manual) Monocytes % (Manual) Eosinophils % (Manual) Basophils % (Manual) Nucleated RBC % Seg Neutrophils # Seg Neutrophils # Man Lymphocytes # (Manual) Monocytes # (Manual) Eosinophils # (Manual) PT INR Fibrinogen dRVVT Confirm Interp Factor V Activity POC ABG pH POC ABG pCO2 POC ABG pO2 Sodium Potassium Chloride Carbon Dioxide BUN Creatinine Glucose POC Glucose 155 H 186 H Lactic Acid Calcium Phosphorus Magnesium Direct Bilirubin ALT Alkaline Phosphatase Troponin T C-Reactive Protein Total Protein Albumin Triglycerides Cholesterol LDL Cholesterol Direct HDL Cholesterol Urine WBC (Auto) 25.0 H Urine Creatinine Urine Total Protein Vancomycin Trough Rheumatoid Factor Complement C4 Miscellaneous Test Crossmatch 09/09/16 09/09/16 09/10/16 17:33 23:13 05:09 WBC RBC Hgb Hct MCV MCH MCHC RDW Plt Count Lymph % (Auto) [place] % (Auto) Lymph # [place] # Seg Neutrophils % Seg Neuts % (Manual) Lymphocytes % (Manual) Monocytes % (Manual) Eosinophils % (Manual) Basophils % (Manual) Nucleated RBC % Seg Neutrophils # Seg Neutrophils # Man Lymphocytes # (Manual) Monocytes # (Manual) Eosinophils # (Manual) PT INR Fibrinogen dRVVT Confirm Interp Factor V Activity POC ABG pH POC ABG pCO2 POC ABG pO2 74 L Sodium Potassium Chloride Carbon Dioxide BUN Creatinine Glucose POC Glucose 211 H 215 H Lactic Acid Calcium Phosphorus Magnesium Direct Bilirubin ALT Alkaline Phosphatase Troponin T C-Reactive Protein Total Protein Albumin Triglycerides Cholesterol LDL Cholesterol Direct HDL Cholesterol Urine WBC (Auto) Urine Creatinine Urine Total Protein Vancomycin Trough Rheumatoid Factor Complement C4 Miscellaneous Test Crossmatch 09/10/16 09/10/16 09/10/16 05:17 05:17 11:31 WBC 15.8 H RBC 3.25 L Hgb 7.3 L Hct 22.9 L MCV 71 L MCH 23 L MCHC RDW 18.4 H Plt Count Lymph % (Auto) [place] % (Auto) Lymph # [place] # Seg Neutrophils % Seg Neuts % (Manual) 91.0 H Lymphocytes % (Manual) 4.0 L Monocytes % (Manual) Eosinophils % (Manual) Basophils % (Manual) Nucleated RBC % Seg Neutrophils # Seg Neutrophils # Man 14.4 H Lymphocytes # (Manual) 0.6 L Monocytes # (Manual) Eosinophils # (Manual) PT INR Fibrinogen dRVVT Confirm Interp Factor V Activity POC ABG pH POC ABG pCO2 POC ABG pO2 Sodium Potassium Chloride Carbon Dioxide 21 L BUN 93 H Creatinine 2.9 H Glucose 146 H POC Glucose 188 H Lactic Acid Calcium 8.1 L Phosphorus Magnesium Direct Bilirubin ALT Alkaline Phosphatase Troponin T C-Reactive Protein Total Protein Albumin Triglycerides Cholesterol LDL Cholesterol Direct HDL Cholesterol Urine WBC (Auto) Urine Creatinine Urine Total Protein Vancomycin Trough Rheumatoid Factor Complement C4 Miscellaneous Test Crossmatch 09/10/16 09/10/16 09/10/16 13:17 17:20 23:32 WBC RBC Hgb Hct MCV MCH MCHC RDW Plt Count Lymph % (Auto) [place] % (Auto) Lymph # [place] # Seg Neutrophils % Seg Neuts % (Manual) Lymphocytes % (Manual) Monocytes % (Manual) Eosinophils % (Manual) Basophils % (Manual) Nucleated RBC % Seg Neutrophils # Seg Neutrophils # Man Lymphocytes # (Manual) Monocytes # (Manual) Eosinophils # (Manual) PT INR Fibrinogen dRVVT Confirm Interp Factor V Activity POC ABG pH POC ABG pCO2 POC ABG pO2 Sodium Potassium Chloride Carbon Dioxide BUN Creatinine Glucose POC Glucose 199 H 186 H Lactic Acid Calcium Phosphorus Magnesium Direct Bilirubin ALT Alkaline Phosphatase Troponin T C-Reactive Protein Total Protein Albumin Triglycerides Cholesterol LDL Cholesterol Direct HDL Cholesterol Urine WBC (Auto) Urine Creatinine Urine Total Protein Vancomycin Trough Rheumatoid Factor Complement C4 Miscellaneous Test Crossmatch See Detail 09/11/16 09/11/16 09/11/16 05:10 05:10 05:17 WBC 28.4 H RBC Hgb 9.2 L Hct 29.3 L D MCV 73 L MCH 23 L MCHC RDW 18.9 H Plt Count 452 H Lymph % (Auto) [place] % (Auto) Lymph # [place] # Seg Neutrophils % Seg Neuts % (Manual) 89.5 H Lymphocytes % (Manual) 2.0 L Monocytes % (Manual) Eosinophils % (Manual) Basophils % (Manual) Nucleated RBC % Seg Neutrophils # Seg Neutrophils # Man 25.4 H Lymphocytes # (Manual) 0.6 L Monocytes # (Manual) 1.3 H Eosinophils # (Manual) PT INR Fibrinogen dRVVT Confirm Interp Factor V Activity POC ABG pH POC ABG pCO2 POC ABG pO2 Sodium 136 L Potassium Chloride Carbon Dioxide 18 L BUN 107 H Creatinine 2.6 H Glucose 187 H POC Glucose 230 H Lactic Acid Calcium 8.3 L Phosphorus Magnesium Direct Bilirubin ALT Alkaline Phosphatase Troponin T C-Reactive Protein Total Protein Albumin Triglycerides Cholesterol LDL Cholesterol Direct HDL Cholesterol Urine WBC (Auto) Urine Creatinine Urine Total Protein Vancomycin Trough Rheumatoid Factor Complement C4 Miscellaneous Test Crossmatch 09/11/16 09/11/16 09/11/16 05:55 12:02 17:32 WBC RBC Hgb Hct MCV MCH MCHC RDW Plt Count Lymph % (Auto) [place] % (Auto) Lymph # [place] # Seg Neutrophils % Seg Neuts % (Manual) Lymphocytes % (Manual) Monocytes % (Manual) Eosinophils % (Manual) Basophils % (Manual) Nucleated RBC % Seg Neutrophils # Seg Neutrophils # Man Lymphocytes # (Manual) Monocytes # (Manual) Eosinophils # (Manual) PT INR Fibrinogen dRVVT Confirm Interp Factor V Activity POC ABG pH POC ABG pCO2 33.8 L POC ABG pO2 Sodium Potassium Chloride Carbon Dioxide BUN Creatinine Glucose POC Glucose 191 H 239 H Lactic Acid Calcium Phosphorus Magnesium Direct Bilirubin ALT Alkaline Phosphatase Troponin T C-Reactive Protein Total Protein Albumin Triglycerides Cholesterol LDL Cholesterol Direct HDL Cholesterol Urine WBC (Auto) Urine Creatinine Urine Total Protein Vancomycin Trough Rheumatoid Factor Complement C4 Miscellaneous Test Crossmatch 09/11/16 09/12/16 09/12/16 23:52 05:09 05:32 WBC RBC Hgb Hct MCV MCH MCHC RDW Plt Count Lymph % (Auto) [place] % (Auto) Lymph # [place] # Seg Neutrophils % Seg Neuts % (Manual) Lymphocytes % (Manual) Monocytes % (Manual) Eosinophils % (Manual) Basophils % (Manual) Nucleated RBC % Seg Neutrophils # Seg Neutrophils # Man Lymphocytes # (Manual) Monocytes # (Manual) Eosinophils # (Manual) PT INR Fibrinogen dRVVT Confirm Interp Factor V Activity POC ABG pH POC ABG pCO2 34.6 L POC ABG pO2 Sodium Potassium Chloride Carbon Dioxide BUN Creatinine Glucose POC Glucose 265 H 184 H Lactic Acid Calcium Phosphorus Magnesium Direct Bilirubin ALT Alkaline Phosphatase Troponin T C-Reactive Protein Total Protein Albumin Triglycerides Cholesterol LDL Cholesterol Direct HDL Cholesterol Urine WBC (Auto) Urine Creatinine Urine Total Protein Vancomycin Trough Rheumatoid Factor Complement C4 Miscellaneous Test Crossmatch 09/12/16 09/12/16 09/12/16 06:45 06:45 07:22 WBC 31.7 H RBC 3.54 L Hgb 8.3 L Hct 25.9 L MCV 73 L MCH 23 L MCHC RDW 18.9 H Plt Count Lymph % (Auto) [place] % (Auto) Lymph # [place] # Seg Neutrophils % Seg Neuts % (Manual) 88.5 H Lymphocytes % (Manual) 4.5 L Monocytes % (Manual) Eosinophils % (Manual) Basophils % (Manual) Nucleated RBC % Seg Neutrophils # Seg Neutrophils # Man 28.1 H Lymphocytes # (Manual) Monocytes # (Manual) 1.0 H Eosinophils # (Manual) PT INR Fibrinogen dRVVT Confirm Interp Factor V Activity POC ABG pH POC ABG pCO2 POC ABG pO2 Sodium Potassium Chloride Carbon Dioxide 20 L BUN 115 H Creatinine 2.7 H Glucose 165 H POC Glucose Lactic Acid Calcium 8.0 L Phosphorus Magnesium Direct Bilirubin ALT Alkaline Phosphatase Troponin T C-Reactive Protein Total Protein Albumin Triglycerides 217 H Cholesterol LDL Cholesterol Direct HDL Cholesterol Urine WBC (Auto) Urine Creatinine Urine Total Protein Vancomycin Trough Rheumatoid Factor Complement C4 Miscellaneous Test Crossmatch 09/12/16 09/12/16 09/12/16 07:22 09:59 12:21 WBC RBC Hgb Hct MCV MCH MCHC RDW Plt Count Lymph % (Auto) [place] % (Auto) Lymph # [place] # Seg Neutrophils % Seg Neuts % (Manual) Lymphocytes % (Manual) Monocytes % (Manual) Eosinophils % (Manual) Basophils % (Manual) Nucleated RBC % Seg Neutrophils # Seg Neutrophils # Man Lymphocytes # (Manual) Monocytes # (Manual) Eosinophils # (Manual) PT INR Fibrinogen dRVVT Confirm Interp Positive H Factor V Activity POC ABG pH POC ABG pCO2 POC ABG pO2 Sodium Potassium Chloride Carbon Dioxide BUN Creatinine Glucose POC Glucose 224 H Lactic Acid Calcium Phosphorus Magnesium Direct Bilirubin ALT Alkaline Phosphatase Troponin T C-Reactive Protein 1.70 H Total Protein Albumin Triglycerides Cholesterol LDL Cholesterol Direct HDL Cholesterol Urine WBC (Auto) Urine Creatinine Urine Total Protein Vancomycin Trough Rheumatoid Factor Complement C4 Miscellaneous Test Crossmatch 09/12/16 09/12/16 09/13/16 16:51 23:28 04:00 WBC 45.0 H* RBC Hgb 9.4 L Hct MCV 75 L MCH 23 L MCHC RDW 19.0 H Plt Count 470 H Lymph % (Auto) [place] % (Auto) Lymph # [place] # Seg Neutrophils % Seg Neuts % (Manual) 89.0 H Lymphocytes % (Manual) 5.0 L Monocytes % (Manual) Eosinophils % (Manual) Basophils % (Manual) Nucleated RBC % Seg Neutrophils # Seg Neutrophils # Man 40.1 H Lymphocytes # (Manual) Monocytes # (Manual) Eosinophils # (Manual) PT INR Fibrinogen dRVVT Confirm Interp Factor V Activity POC ABG pH POC ABG pCO2 POC ABG pO2 Sodium Potassium Chloride Carbon Dioxide BUN Creatinine Glucose POC Glucose 169 H 150 H Lactic Acid Calcium Phosphorus Magnesium Direct Bilirubin ALT Alkaline Phosphatase Troponin T C-Reactive Protein Total Protein Albumin Triglycerides Cholesterol LDL Cholesterol Direct HDL Cholesterol Urine WBC (Auto) Urine Creatinine Urine Total Protein Vancomycin Trough Rheumatoid Factor Complement C4 Miscellaneous Test Crossmatch 09/13/16 09/13/16 09/13/16 04:00 11:26 17:31 WBC RBC Hgb Hct MCV MCH MCHC RDW Plt Count Lymph % (Auto) [place] % (Auto) Lymph # [place] # Seg Neutrophils % Seg Neuts % (Manual) Lymphocytes % (Manual) Monocytes % (Manual) Eosinophils % (Manual) Basophils % (Manual) Nucleated RBC % Seg Neutrophils # Seg Neutrophils # Man Lymphocytes # (Manual) Monocytes # (Manual) Eosinophils # (Manual) PT INR Fibrinogen dRVVT Confirm Interp Factor V Activity POC ABG pH POC ABG pCO2 POC ABG pO2 Sodium Potassium Chloride Carbon Dioxide 20 L BUN 116 H Creatinine 3.0 H Glucose 172 H POC Glucose 140 H 183 H Lactic Acid Calcium Phosphorus Magnesium Direct Bilirubin ALT Alkaline Phosphatase Troponin T C-Reactive Protein Total Protein 6.2 L Albumin 2.9 L Triglycerides Cholesterol LDL Cholesterol Direct HDL Cholesterol Urine WBC (Auto) Urine Creatinine Urine Total Protein Vancomycin Trough Rheumatoid Factor Complement C4 Miscellaneous Test Crossmatch 09/13/16 09/14/16 09/14/16 23:23 04:06 04:07 WBC 29.4 H RBC Hgb 8.9 L Hct 27.3 L MCV 75 L MCH 24 L MCHC RDW 19.1 H Plt Count Lymph % (Auto) [place] % (Auto) Lymph # [place] # Seg Neutrophils % Seg Neuts % (Manual) 84.0 H Lymphocytes % (Manual) 6.0 L Monocytes % (Manual) 9.0 H Eosinophils % (Manual) Basophils % (Manual) Nucleated RBC % Seg Neutrophils # Seg Neutrophils # Man 24.7 H Lymphocytes # (Manual) Monocytes # (Manual) 2.6 H Eosinophils # (Manual) PT INR Fibrinogen dRVVT Confirm Interp Factor V Activity POC ABG pH 7.342 L POC ABG pCO2 POC ABG pO2 116 H Sodium Potassium Chloride Carbon Dioxide BUN Creatinine Glucose POC Glucose 154 H Lactic Acid Calcium Phosphorus Magnesium Direct Bilirubin ALT Alkaline Phosphatase Troponin T C-Reactive Protein Total Protein Albumin Triglycerides Cholesterol LDL Cholesterol Direct HDL Cholesterol Urine WBC (Auto) Urine Creatinine Urine Total Protein Vancomycin Trough Rheumatoid Factor Complement C4 Miscellaneous Test Crossmatch 09/14/16 09/14/16 09/14/16 04:07 05:29 12:19 WBC RBC Hgb Hct MCV MCH MCHC RDW Plt Count Lymph % (Auto) [place] % (Auto) Lymph # [place] # Seg Neutrophils % Seg Neuts % (Manual) Lymphocytes % (Manual) Monocytes % (Manual) Eosinophils % (Manual) Basophils % (Manual) Nucleated RBC % Seg Neutrophils # Seg Neutrophils # Man Lymphocytes # (Manual) Monocytes # (Manual) Eosinophils # (Manual) PT INR Fibrinogen dRVVT Confirm Interp Factor V Activity POC ABG pH POC ABG pCO2 POC ABG pO2 Sodium 136 L Potassium Chloride Carbon Dioxide 18 L BUN 121 H Creatinine 2.8 H Glucose 214 H POC Glucose 239 H 181 H Lactic Acid Calcium Phosphorus Magnesium Direct Bilirubin ALT Alkaline Phosphatase Troponin T C-Reactive Protein Total Protein Albumin Triglycerides Cholesterol LDL Cholesterol Direct HDL Cholesterol Urine WBC (Auto) Urine Creatinine Urine Total Protein Vancomycin Trough Rheumatoid Factor Complement C4 Miscellaneous Test Crossmatch 09/14/16 09/14/16 09/15/16 18:12 23:37 05:00 WBC 26.1 H RBC 3.05 L Hgb 7.2 L Hct 22.9 L MCV 75 L MCH 24 L MCHC RDW 19.0 H Plt Count Lymph % (Auto) [place] % (Auto) Lymph # [place] # Seg Neutrophils % Seg Neuts % (Manual) Lymphocytes % (Manual) Monocytes % (Manual) Eosinophils % (Manual) Basophils % (Manual) Nucleated RBC % Seg Neutrophils # Seg Neutrophils # Man Lymphocytes # (Manual) Monocytes # (Manual) Eosinophils # (Manual) PT INR Fibrinogen dRVVT Confirm Interp Factor V Activity POC ABG pH POC ABG pCO2 POC ABG pO2 Sodium Potassium Chloride Carbon Dioxide BUN Creatinine Glucose POC Glucose 266 H 154 H Lactic Acid Calcium Phosphorus Magnesium Direct Bilirubin ALT Alkaline Phosphatase Troponin T C-Reactive Protein Total Protein Albumin Triglycerides Cholesterol LDL Cholesterol Direct HDL Cholesterol Urine WBC (Auto) Urine Creatinine Urine Total Protein Vancomycin Trough Rheumatoid Factor Complement C4 Miscellaneous Test Crossmatch 09/15/16 09/15/16 09/15/16 05:00 05:17 12:45 WBC RBC Hgb Hct MCV MCH MCHC RDW Plt Count Lymph % (Auto) [place] % (Auto) Lymph # [place] # Seg Neutrophils % Seg Neuts % (Manual) Lymphocytes % (Manual) Monocytes % (Manual) Eosinophils % (Manual) Basophils % (Manual) Nucleated RBC % Seg Neutrophils # Seg Neutrophils # Man Lymphocytes # (Manual) Monocytes # (Manual) Eosinophils # (Manual) PT INR Fibrinogen dRVVT Confirm Interp Factor V Activity POC ABG pH POC ABG pCO2 POC ABG pO2 Sodium Potassium 5.2 H Chloride Carbon Dioxide 18 L BUN 139 H Creatinine 3.7 H Glucose 227 H POC Glucose 226 H 244 H Lactic Acid Calcium 8.3 L Phosphorus Magnesium Direct Bilirubin ALT Alkaline Phosphatase Troponin T C-Reactive Protein Total Protein Albumin Triglycerides Cholesterol LDL Cholesterol Direct HDL Cholesterol Urine WBC (Auto) Urine Creatinine Urine Total Protein Vancomycin Trough Rheumatoid Factor Complement C4 Miscellaneous Test Crossmatch 09/15/16 09/15/16 09/15/16 14:32 17:33 23:35 WBC RBC Hgb Hct MCV MCH MCHC RDW Plt Count Lymph % (Auto) [place] % (Auto) Lymph # [place] # Seg Neutrophils % Seg Neuts % (Manual) Lymphocytes % (Manual) Monocytes % (Manual) Eosinophils % (Manual) Basophils % (Manual) Nucleated RBC % Seg Neutrophils # Seg Neutrophils # Man Lymphocytes # (Manual) Monocytes # (Manual) Eosinophils # (Manual) PT INR Fibrinogen dRVVT Confirm Interp Factor V Activity POC ABG pH POC ABG pCO2 27.7 L POC ABG pO2 120 H Sodium Potassium Chloride Carbon Dioxide BUN Creatinine Glucose POC Glucose 232 H 167 H Lactic Acid Calcium Phosphorus Magnesium Direct Bilirubin ALT Alkaline Phosphatase Troponin T C-Reactive Protein Total Protein Albumin Triglycerides Cholesterol LDL Cholesterol Direct HDL Cholesterol Urine WBC (Auto) Urine Creatinine Urine Total Protein Vancomycin Trough Rheumatoid Factor Complement C4 Miscellaneous Test Crossmatch 09/16/16 09/16/16 09/16/16 03:58 10:27 10:27 WBC 19.0 H RBC 2.77 L Hgb 6.5 L Hct 20.9 L MCV 76 L MCH 23 L MCHC RDW 19.3 H Plt Count Lymph % (Auto) 11.0 L [place] % (Auto) Lymph # [place] # 1.1 H Seg Neutrophils % 82.5 H Seg Neuts % (Manual) Lymphocytes % (Manual) Monocytes % (Manual) Eosinophils % (Manual) Basophils % (Manual) Nucleated RBC % Seg Neutrophils # 15.7 H Seg Neutrophils # Man Lymphocytes # (Manual) Monocytes # (Manual) Eosinophils # (Manual) PT INR Fibrinogen dRVVT Confirm Interp Factor V Activity POC ABG pH POC ABG pCO2 POC ABG pO2 Sodium Potassium Chloride 109.3 H Carbon Dioxide 18 L BUN 139 H Creatinine 4.1 H Glucose 144 H POC Glucose 146 H Lactic Acid Calcium 8.1 L Phosphorus Magnesium Direct Bilirubin ALT Alkaline Phosphatase Troponin T C-Reactive Protein Total Protein Albumin Triglycerides Cholesterol LDL Cholesterol Direct HDL Cholesterol Urine WBC (Auto) Urine Creatinine Urine Total Protein Vancomycin Trough Rheumatoid Factor Complement C4 Miscellaneous Test Crossmatch 09/16/16 09/16/16 09/16/16 12:04 12:10 13:55 WBC RBC Hgb Hct MCV MCH MCHC RDW Plt Count Lymph % (Auto) [place] % (Auto) Lymph # [place] # Seg Neutrophils % Seg Neuts % (Manual) Lymphocytes % (Manual) Monocytes % (Manual) Eosinophils % (Manual) Basophils % (Manual) Nucleated RBC % Seg Neutrophils # Seg Neutrophils # Man Lymphocytes # (Manual) Monocytes # (Manual) Eosinophils # (Manual) PT INR Fibrinogen dRVVT Confirm Interp Factor V Activity POC ABG pH POC ABG pCO2 32.9 L POC ABG pO2 Sodium Potassium Chloride Carbon Dioxide BUN Creatinine Glucose POC Glucose 185 H Lactic Acid Calcium Phosphorus Magnesium Direct Bilirubin ALT Alkaline Phosphatase Troponin T C-Reactive Protein Total Protein Albumin Triglycerides Cholesterol LDL Cholesterol Direct HDL Cholesterol Urine WBC (Auto) Urine Creatinine Urine Total Protein Vancomycin Trough Rheumatoid Factor Complement C4 Miscellaneous Test Crossmatch See Detail 09/16/16 09/16/16 09/16/16 17:55 19:19 23:48 WBC RBC Hgb Hct MCV MCH MCHC RDW Plt Count Lymph % (Auto) [place] % (Auto) Lymph # [place] # Seg Neutrophils % Seg Neuts % (Manual) Lymphocytes % (Manual) Monocytes % (Manual) Eosinophils % (Manual) Basophils % (Manual) Nucleated RBC % Seg Neutrophils # Seg Neutrophils # Man Lymphocytes # (Manual) Monocytes # (Manual) Eosinophils # (Manual) PT INR Fibrinogen dRVVT Confirm Interp Factor V Activity POC ABG pH POC ABG pCO2 POC ABG pO2 Sodium Potassium Chloride Carbon Dioxide BUN Creatinine Glucose POC Glucose 222 H 107 H Lactic Acid Calcium Phosphorus Magnesium Direct Bilirubin ALT Alkaline Phosphatase Troponin T C-Reactive Protein Total Protein Albumin Triglycerides Cholesterol LDL Cholesterol Direct HDL Cholesterol Urine WBC (Auto) Urine Creatinine 47.4 H Urine Total Protein 16 H Vancomycin Trough Rheumatoid Factor Complement C4 Miscellaneous Test Crossmatch 09/17/16 09/17/16 09/17/16 03:45 03:45 04:55 WBC 19.6 H RBC 3.41 L Hgb 8.5 L Hct 26.7 L MCV 78 L MCH 25 L MCHC RDW 19.9 H Plt Count Lymph % (Auto) 9.3 L [place] % (Auto) Lymph # [place] # 1.2 H Seg Neutrophils % 83.9 H Seg Neuts % (Manual) Lymphocytes % (Manual) Monocytes % (Manual) Eosinophils % (Manual) Basophils % (Manual) Nucleated RBC % Seg Neutrophils # 16.4 H Seg Neutrophils # Man Lymphocytes # (Manual) Monocytes # (Manual) Eosinophils # (Manual) PT INR Fibrinogen dRVVT Confirm Interp Factor V Activity POC ABG pH POC ABG pCO2 POC ABG pO2 Sodium 146 H Potassium 5.1 H Chloride 110.9 H Carbon Dioxide 16 L BUN 146 H Creatinine 4.0 H Glucose 108 H POC Glucose 133 H Lactic Acid Calcium Phosphorus Magnesium 3.00 H Direct Bilirubin ALT Alkaline Phosphatase Troponin T C-Reactive Protein Total Protein Albumin Triglycerides Cholesterol LDL Cholesterol Direct HDL Cholesterol Urine WBC (Auto) Urine Creatinine Urine Total Protein Vancomycin Trough Rheumatoid Factor Complement C4 Miscellaneous Test Crossmatch 09/17/16 09/17/16 09/17/16 11:15 17:33 23:47 WBC RBC Hgb Hct MCV MCH MCHC RDW Plt Count Lymph % (Auto) [place] % (Auto) Lymph # [place] # Seg Neutrophils % Seg Neuts % (Manual) Lymphocytes % (Manual) Monocytes % (Manual) Eosinophils % (Manual) Basophils % (Manual) Nucleated RBC % Seg Neutrophils # Seg Neutrophils # Man Lymphocytes # (Manual) Monocytes # (Manual) Eosinophils # (Manual) PT INR Fibrinogen dRVVT Confirm Interp Factor V Activity POC ABG pH POC ABG pCO2 POC ABG pO2 Sodium Potassium Chloride Carbon Dioxide BUN Creatinine Glucose POC Glucose 176 H 246 H 148 H Lactic Acid Calcium Phosphorus Magnesium Direct Bilirubin ALT Alkaline Phosphatase Troponin T C-Reactive Protein Total Protein Albumin Triglycerides Cholesterol LDL Cholesterol Direct HDL Cholesterol Urine WBC (Auto) Urine Creatinine Urine Total Protein Vancomycin Trough Rheumatoid Factor Complement C4 Miscellaneous Test Crossmatch 09/18/16 09/18/16 09/18/16 05:33 08:31 08:31 WBC 18.0 H RBC 3.17 L Hgb 9.0 L Hct 25.7 L MCV MCH MCHC 35 H RDW 20.4 H Plt Count Lymph % (Auto) [place] % (Auto) Lymph # [place] # Seg Neutrophils % Seg Neuts % (Manual) Lymphocytes % (Manual) Monocytes % (Manual) Eosinophils % (Manual) Basophils % (Manual) Nucleated RBC % Seg Neutrophils # Seg Neutrophils # Man Lymphocytes # (Manual) Monocytes # (Manual) Eosinophils # (Manual) PT INR Fibrinogen dRVVT Confirm Interp Factor V Activity POC ABG pH POC ABG pCO2 POC ABG pO2 Sodium Potassium Chloride Carbon Dioxide 15 L BUN 124 H Creatinine 3.8 H Glucose POC Glucose 120 H Lactic Acid Calcium 8.1 L Phosphorus Magnesium Direct Bilirubin ALT Alkaline Phosphatase Troponin T C-Reactive Protein Total Protein Albumin Triglycerides Cholesterol LDL Cholesterol Direct HDL Cholesterol Urine WBC (Auto) Urine Creatinine Urine Total Protein Vancomycin Trough Rheumatoid Factor Complement C4 Miscellaneous Test Crossmatch 09/18/16 09/18/16 09/18/16 12:03 15:34 17:50 WBC RBC Hgb Hct MCV MCH MCHC RDW Plt Count Lymph % (Auto) [place] % (Auto) Lymph # [place] # Seg Neutrophils % Seg Neuts % (Manual) Lymphocytes % (Manual) Monocytes % (Manual) Eosinophils % (Manual) Basophils % (Manual) Nucleated RBC % Seg Neutrophils # Seg Neutrophils # Man Lymphocytes # (Manual) Monocytes # (Manual) Eosinophils # (Manual) PT INR Fibrinogen dRVVT Confirm Interp Factor V Activity POC ABG pH POC ABG pCO2 25.7 L POC ABG pO2 66 L Sodium Potassium Chloride Carbon Dioxide BUN Creatinine Glucose POC Glucose 156 H 220 H Lactic Acid Calcium Phosphorus Magnesium Direct Bilirubin ALT Alkaline Phosphatase Troponin T C-Reactive Protein Total Protein Albumin Triglycerides Cholesterol LDL Cholesterol Direct HDL Cholesterol Urine WBC (Auto) Urine Creatinine Urine Total Protein Vancomycin Trough Rheumatoid Factor Complement C4 Miscellaneous Test Crossmatch 09/19/16 09/19/16 09/19/16 06:21 09:50 09:50 WBC 17.1 H RBC 3.49 L Hgb 9.0 L Hct 28.1 L MCV MCH 26 L MCHC RDW 20.8 H Plt Count Lymph % (Auto) 11.5 L [place] % (Auto) 7.5 H Lymph # [place] # 1.3 H Seg Neutrophils % 79.8 H Seg Neuts % (Manual) Lymphocytes % (Manual) Monocytes % (Manual) Eosinophils % (Manual) Basophils % (Manual) Nucleated RBC % Seg Neutrophils # 13.7 H Seg Neutrophils # Man Lymphocytes # (Manual) Monocytes # (Manual) Eosinophils # (Manual) PT INR Fibrinogen dRVVT Confirm Interp Factor V Activity POC ABG pH POC ABG pCO2 POC ABG pO2 Sodium Potassium Chloride 108.6 H Carbon Dioxide 15 L BUN 125 H Creatinine 4.1 H Glucose 124 H POC Glucose 119 H Lactic Acid Calcium Phosphorus Magnesium Direct Bilirubin ALT Alkaline Phosphatase Troponin T C-Reactive Protein Total Protein Albumin Triglycerides Cholesterol LDL Cholesterol Direct HDL Cholesterol Urine WBC (Auto) Urine Creatinine Urine Total Protein Vancomycin Trough Rheumatoid Factor Complement C4 Miscellaneous Test Crossmatch 09/19/16 09/19/16 09/19/16 11:25 17:53 23:36 WBC RBC Hgb Hct MCV MCH MCHC RDW Plt Count Lymph % (Auto) [place] % (Auto) Lymph # [place] # Seg Neutrophils % Seg Neuts % (Manual) Lymphocytes % (Manual) Monocytes % (Manual) Eosinophils % (Manual) Basophils % (Manual) Nucleated RBC % Seg Neutrophils # Seg Neutrophils # Man Lymphocytes # (Manual) Monocytes # (Manual) Eosinophils # (Manual) PT INR Fibrinogen dRVVT Confirm Interp Factor V Activity POC ABG pH POC ABG pCO2 POC ABG pO2 Sodium Potassium Chloride Carbon Dioxide BUN Creatinine Glucose POC Glucose 160 H 245 H 121 H Lactic Acid Calcium Phosphorus Magnesium Direct Bilirubin ALT Alkaline Phosphatase Troponin T C-Reactive Protein Total Protein Albumin Triglycerides Cholesterol LDL Cholesterol Direct HDL Cholesterol Urine WBC (Auto) Urine Creatinine Urine Total Protein Vancomycin Trough Rheumatoid Factor Complement C4 Miscellaneous Test Crossmatch 09/20/16 09/20/16 09/20/16 04:10 04:10 04:10 WBC 17.0 H RBC 3.21 L Hgb 8.2 L Hct 25.5 L MCV MCH 26 L MCHC RDW 20.9 H Plt Count Lymph % (Auto) [place] % (Auto) Lymph # [place] # Seg Neutrophils % Seg Neuts % (Manual) Lymphocytes % (Manual) Monocytes % (Manual) Eosinophils % (Manual) Basophils % (Manual) Nucleated RBC % Seg Neutrophils # Seg Neutrophils # Man Lymphocytes # (Manual) Monocytes # (Manual) Eosinophils # (Manual) PT INR Fibrinogen dRVVT Confirm Interp Factor V Activity POC ABG pH POC ABG pCO2 POC ABG pO2 Sodium Potassium Chloride 111.0 H Carbon Dioxide 16 L BUN 129 H Creatinine 3.7 H Glucose 115 H POC Glucose Lactic Acid Calcium 8.2 L Phosphorus Magnesium Direct Bilirubin ALT Alkaline Phosphatase Troponin T C-Reactive Protein Total Protein Albumin Triglycerides 243 H Cholesterol LDL Cholesterol Direct HDL Cholesterol Urine WBC (Auto) Urine Creatinine Urine Total Protein Vancomycin Trough Rheumatoid Factor Complement C4 Miscellaneous Test Crossmatch 09/20/16 09/20/16 09/20/16 05:40 11:52 16:50 WBC RBC Hgb Hct MCV MCH MCHC RDW Plt Count Lymph % (Auto) [place] % (Auto) Lymph # [place] # Seg Neutrophils % Seg Neuts % (Manual) Lymphocytes % (Manual) Monocytes % (Manual) Eosinophils % (Manual) Basophils % (Manual) Nucleated RBC % Seg Neutrophils # Seg Neutrophils # Man Lymphocytes # (Manual) Monocytes # (Manual) Eosinophils # (Manual) PT INR Fibrinogen dRVVT Confirm Interp Factor V Activity POC ABG pH POC ABG pCO2 POC ABG pO2 Sodium Potassium Chloride Carbon Dioxide BUN Creatinine Glucose POC Glucose 131 H 183 H 236 H Lactic Acid Calcium Phosphorus Magnesium Direct Bilirubin ALT Alkaline Phosphatase Troponin T C-Reactive Protein Total Protein Albumin Triglycerides Cholesterol LDL Cholesterol Direct HDL Cholesterol Urine WBC (Auto) Urine Creatinine Urine Total Protein Vancomycin Trough Rheumatoid Factor Complement C4 Miscellaneous Test Crossmatch 09/20/16 09/21/16 09/21/16 23:51 03:30 04:44 WBC RBC Hgb Hct MCV MCH MCHC RDW Plt Count Lymph % (Auto) [place] % (Auto) Lymph # [place] # Seg Neutrophils % Seg Neuts % (Manual) Lymphocytes % (Manual) Monocytes % (Manual) Eosinophils % (Manual) Basophils % (Manual) Nucleated RBC % Seg Neutrophils # Seg Neutrophils # Man Lymphocytes # (Manual) Monocytes # (Manual) Eosinophils # (Manual) PT INR Fibrinogen dRVVT Confirm Interp Factor V Activity POC ABG pH POC ABG pCO2 POC ABG pO2 Sodium Potassium Chloride Carbon Dioxide BUN Creatinine Glucose POC Glucose 114 H 141 H Lactic Acid Calcium Phosphorus Magnesium 2.70 H Direct Bilirubin ALT Alkaline Phosphatase Troponin T C-Reactive Protein Total Protein Albumin Triglycerides Cholesterol LDL Cholesterol Direct HDL Cholesterol Urine WBC (Auto) Urine Creatinine Urine Total Protein Vancomycin Trough Rheumatoid Factor Complement C4 Miscellaneous Test Crossmatch 09/21/16 09/21/16 09/21/16 07:45 07:45 10:01 WBC 13.8 H RBC 2.94 L Hgb 7.5 L Hct 23.5 L MCV MCH 26 L MCHC RDW 21.2 H Plt Count Lymph % (Auto) 6.9 L [place] % (Auto) 9.4 H Lymph # 0.9 L [place] # 1.3 H Seg Neutrophils % 83.2 H Seg Neuts % (Manual) Lymphocytes % (Manual) Monocytes % (Manual) Eosinophils % (Manual) Basophils % (Manual) Nucleated RBC % Seg Neutrophils # 11.5 H Seg Neutrophils # Man Lymphocytes # (Manual) Monocytes # (Manual) Eosinophils # (Manual) PT INR Fibrinogen dRVVT Confirm Interp Factor V Activity POC ABG pH 7.308 L POC ABG pCO2 31.9 L POC ABG pO2 148 H Sodium 147 H Potassium Chloride 114.2 H Carbon Dioxide 15 L BUN 120 H Creatinine 3.9 H Glucose 156 H POC Glucose Lactic Acid Calcium 8.2 L Phosphorus Magnesium Direct Bilirubin ALT Alkaline Phosphatase Troponin T C-Reactive Protein Total Protein Albumin Triglycerides Cholesterol LDL Cholesterol Direct HDL Cholesterol Urine WBC (Auto) Urine Creatinine Urine Total Protein Vancomycin Trough Rheumatoid Factor Complement C4 Miscellaneous Test Crossmatch 09/21/16 09/21/16 09/21/16 12:00 12:03 13:00 WBC RBC Hgb Hct MCV MCH MCHC RDW Plt Count Lymph % (Auto) [place] % (Auto) Lymph # [place] # Seg Neutrophils % Seg Neuts % (Manual) Lymphocytes % (Manual) Monocytes % (Manual) Eosinophils % (Manual) Basophils % (Manual) Nucleated RBC % Seg Neutrophils # Seg Neutrophils # Man Lymphocytes # (Manual) Monocytes # (Manual) Eosinophils # (Manual) PT INR Fibrinogen dRVVT Confirm Interp Factor V Activity POC ABG pH POC ABG pCO2 POC ABG pO2 Sodium Potassium Chloride Carbon Dioxide BUN Creatinine Glucose POC Glucose 163 H Lactic Acid Calcium Phosphorus Magnesium Direct Bilirubin ALT Alkaline Phosphatase Troponin T C-Reactive Protein Total Protein Albumin Triglycerides Cholesterol LDL Cholesterol Direct HDL Cholesterol Urine WBC (Auto) Urine Creatinine 54.8 H Urine Total Protein Vancomycin Trough 2.3 L Rheumatoid Factor Complement C4 Miscellaneous Test Crossmatch 09/21/16 09/21/16 09/22/16 16:51 23:17 06:27 WBC RBC Hgb Hct MCV MCH MCHC RDW Plt Count Lymph % (Auto) [place] % (Auto) Lymph # [place] # Seg Neutrophils % Seg Neuts % (Manual) Lymphocytes % (Manual) Monocytes % (Manual) Eosinophils % (Manual) Basophils % (Manual) Nucleated RBC % Seg Neutrophils # Seg Neutrophils # Man Lymphocytes # (Manual) Monocytes # (Manual) Eosinophils # (Manual) PT INR Fibrinogen dRVVT Confirm Interp Factor V Activity POC ABG pH POC ABG pCO2 POC ABG pO2 Sodium Potassium Chloride Carbon Dioxide BUN Creatinine Glucose POC Glucose 206 H 114 H 115 H Lactic Acid Calcium Phosphorus Magnesium Direct Bilirubin ALT Alkaline Phosphatase Troponin T C-Reactive Protein Total Protein Albumin Triglycerides Cholesterol LDL Cholesterol Direct HDL Cholesterol Urine WBC (Auto) Urine Creatinine Urine Total Protein Vancomycin Trough Rheumatoid Factor Complement C4 Miscellaneous Test Crossmatch 09/22/16 09/22/16 09/22/16 07:50 07:50 12:00 WBC 17.8 H RBC 3.04 L Hgb 8.0 L Hct 24.7 L MCV MCH 26 L MCHC RDW 21.6 H Plt Count Lymph % (Auto) [place] % (Auto) Lymph # [place] # Seg Neutrophils % Seg Neuts % (Manual) Lymphocytes % (Manual) Monocytes % (Manual) Eosinophils % (Manual) Basophils % (Manual) Nucleated RBC % Seg Neutrophils # Seg Neutrophils # Man Lymphocytes # (Manual) Monocytes # (Manual) Eosinophils # (Manual) PT INR Fibrinogen dRVVT Confirm Interp Factor V Activity POC ABG pH POC ABG pCO2 POC ABG pO2 Sodium 150 H Potassium Chloride 118.2 H Carbon Dioxide 14 L BUN 111 H Creatinine 3.7 H Glucose 157 H POC Glucose 183 H Lactic Acid Calcium Phosphorus Magnesium Direct Bilirubin ALT Alkaline Phosphatase Troponin T C-Reactive Protein Total Protein Albumin Triglycerides Cholesterol LDL Cholesterol Direct HDL Cholesterol Urine WBC (Auto) Urine Creatinine Urine Total Protein Vancomycin Trough Rheumatoid Factor Complement C4 Miscellaneous Test Crossmatch 09/22/16 09/22/16 09/23/16 17:29 23:10 05:00 WBC 19.2 H RBC 3.13 L Hgb 8.0 L Hct 25.2 L MCV MCH 26 L MCHC RDW 22.1 H Plt Count Lymph % (Auto) [place] % (Auto) Lymph # [place] # Seg Neutrophils % Seg Neuts % (Manual) 92.0 H Lymphocytes % (Manual) 3.0 L Monocytes % (Manual) Eosinophils % (Manual) Basophils % (Manual) Nucleated RBC % Seg Neutrophils # Seg Neutrophils # Man 17.7 H Lymphocytes # (Manual) 0.6 L Monocytes # (Manual) Eosinophils # (Manual) PT INR Fibrinogen dRVVT Confirm Interp Factor V Activity POC ABG pH POC ABG pCO2 POC ABG pO2 Sodium Potassium Chloride Carbon Dioxide BUN Creatinine Glucose POC Glucose 197 H 169 H Lactic Acid Calcium Phosphorus Magnesium Direct Bilirubin ALT Alkaline Phosphatase Troponin T C-Reactive Protein Total Protein Albumin Triglycerides Cholesterol LDL Cholesterol Direct HDL Cholesterol Urine WBC (Auto) Urine Creatinine Urine Total Protein Vancomycin Trough Rheumatoid Factor Complement C4 Miscellaneous Test Crossmatch 09/23/16 09/23/16 09/23/16 05:00 05:00 05:10 WBC RBC Hgb Hct MCV MCH MCHC RDW Plt Count Lymph % (Auto) [place] % (Auto) Lymph # [place] # Seg Neutrophils % Seg Neuts % (Manual) Lymphocytes % (Manual) Monocytes % (Manual) Eosinophils % (Manual) Basophils % (Manual) Nucleated RBC % Seg Neutrophils # Seg Neutrophils # Man Lymphocytes # (Manual) Monocytes # (Manual) Eosinophils # (Manual) PT INR Fibrinogen dRVVT Confirm Interp Factor V Activity POC ABG pH POC ABG pCO2 POC ABG pO2 Sodium 147 H Potassium 3.2 L Chloride 115.7 H Carbon Dioxide 13 L BUN 111 H Creatinine 3.8 H Glucose 194 H POC Glucose 188 H Lactic Acid Calcium 7.3 L D Phosphorus Magnesium Direct Bilirubin ALT Alkaline Phosphatase Troponin T C-Reactive Protein 3.20 H Total Protein Albumin Triglycerides Cholesterol LDL Cholesterol Direct HDL Cholesterol Urine WBC (Auto) Urine Creatinine Urine Total Protein Vancomycin Trough Rheumatoid Factor Complement C4 Miscellaneous Test Crossmatch 09/23/16 09/23/16 09/23/16 11:37 12:29 18:01 WBC RBC Hgb Hct MCV MCH MCHC RDW Plt Count Lymph % (Auto) [place] % (Auto) Lymph # [place] # Seg Neutrophils % Seg Neuts % (Manual) Lymphocytes % (Manual) Monocytes % (Manual) Eosinophils % (Manual) Basophils % (Manual) Nucleated RBC % Seg Neutrophils # Seg Neutrophils # Man Lymphocytes # (Manual) Monocytes # (Manual) Eosinophils # (Manual) PT INR Fibrinogen dRVVT Confirm Interp Factor V Activity POC ABG pH POC ABG pCO2 18.9 L POC ABG pO2 143 H Sodium Potassium Chloride Carbon Dioxide BUN Creatinine Glucose POC Glucose 153 H 108 H Lactic Acid Calcium Phosphorus Magnesium Direct Bilirubin ALT Alkaline Phosphatase Troponin T C-Reactive Protein Total Protein Albumin Triglycerides Cholesterol LDL Cholesterol Direct HDL Cholesterol Urine WBC (Auto) Urine Creatinine Urine Total Protein Vancomycin Trough Rheumatoid Factor Complement C4 Miscellaneous Test Crossmatch 09/23/16 09/23/16 09/24/16 21:19 23:43 05:16 WBC RBC Hgb Hct MCV MCH MCHC RDW Plt Count Lymph % (Auto) [place] % (Auto) Lymph # [place] # Seg Neutrophils % Seg Neuts % (Manual) Lymphocytes % (Manual) Monocytes % (Manual) Eosinophils % (Manual) Basophils % (Manual) Nucleated RBC % Seg Neutrophils # Seg Neutrophils # Man Lymphocytes # (Manual) Monocytes # (Manual) Eosinophils # (Manual) PT INR Fibrinogen dRVVT Confirm Interp Factor V Activity POC ABG pH POC ABG pCO2 17.3 L POC ABG pO2 112 H Sodium Potassium Chloride Carbon Dioxide BUN Creatinine Glucose POC Glucose 143 H 164 H Lactic Acid Calcium Phosphorus Magnesium Direct Bilirubin ALT Alkaline Phosphatase Troponin T C-Reactive Protein Total Protein Albumin Triglycerides Cholesterol LDL Cholesterol Direct HDL Cholesterol Urine WBC (Auto) Urine Creatinine Urine Total Protein Vancomycin Trough Rheumatoid Factor Complement C4 Miscellaneous Test Crossmatch 09/24/16 09/24/16 09/24/16 05:21 11:58 17:06 WBC RBC Hgb Hct MCV MCH MCHC RDW Plt Count Lymph % (Auto) [place] % (Auto) Lymph # [place] # Seg Neutrophils % Seg Neuts % (Manual) Lymphocytes % (Manual) Monocytes % (Manual) Eosinophils % (Manual) Basophils % (Manual) Nucleated RBC % Seg Neutrophils # Seg Neutrophils # Man Lymphocytes # (Manual) Monocytes # (Manual) Eosinophils # (Manual) PT INR Fibrinogen dRVVT Confirm Interp Factor V Activity POC ABG pH POC ABG pCO2 POC ABG pO2 Sodium Potassium Chloride Carbon Dioxide 10 L BUN 103 H Creatinine 4.3 H Glucose 163 H POC Glucose 173 H 167 H Lactic Acid Calcium 6.5 L Phosphorus Magnesium Direct Bilirubin ALT Alkaline Phosphatase Troponin T C-Reactive Protein Total Protein Albumin Triglycerides Cholesterol LDL Cholesterol Direct HDL Cholesterol Urine WBC (Auto) Urine Creatinine Urine Total Protein Vancomycin Trough Rheumatoid Factor Complement C4 Miscellaneous Test Crossmatch 09/24/16 09/24/16 09/24/16 20:15 21:02 23:48 WBC RBC Hgb Hct MCV MCH MCHC RDW Plt Count Lymph % (Auto) [place] % (Auto) Lymph # [place] # Seg Neutrophils % Seg Neuts % (Manual) Lymphocytes % (Manual) Monocytes % (Manual) Eosinophils % (Manual) Basophils % (Manual) Nucleated RBC % Seg Neutrophils # Seg Neutrophils # Man Lymphocytes # (Manual) Monocytes # (Manual) Eosinophils # (Manual) PT INR Fibrinogen dRVVT Confirm Interp Factor V Activity POC ABG pH 7.288 L POC ABG pCO2 30.2 L 21.5 L POC ABG pO2 32 L 39 L Sodium Potassium Chloride Carbon Dioxide BUN Creatinine Glucose POC Glucose 109 H Lactic Acid Calcium Phosphorus Magnesium Direct Bilirubin ALT Alkaline Phosphatase Troponin T C-Reactive Protein Total Protein Albumin Triglycerides Cholesterol LDL Cholesterol Direct HDL Cholesterol Urine WBC (Auto) Urine Creatinine Urine Total Protein Vancomycin Trough Rheumatoid Factor Complement C4 Miscellaneous Test Crossmatch 09/25/16 09/25/16 09/25/16 04:20 04:20 04:20 WBC RBC 2.58 L Hgb 7.0 L Hct 21.0 L MCV MCH 27 L MCHC RDW 23.8 H Plt Count Lymph % (Auto) [place] % (Auto) Lymph # [place] # Seg Neutrophils % Seg Neuts % (Manual) Lymphocytes % (Manual) 12.0 L Monocytes % (Manual) Eosinophils % (Manual) 7.0 H Basophils % (Manual) 2.0 H Nucleated RBC % Seg Neutrophils # Seg Neutrophils # Man Lymphocytes # (Manual) 0.9 L Monocytes # (Manual) Eosinophils # (Manual) 0.5 H PT INR Fibrinogen dRVVT Confirm Interp Factor V Activity POC ABG pH POC ABG pCO2 POC ABG pO2 Sodium Potassium Chloride Carbon Dioxide 15 L BUN 72 H Creatinine 3.8 H Glucose POC Glucose Lactic Acid Calcium 6.0 L Phosphorus 4.60 H Magnesium 1.60 L Direct Bilirubin ALT Alkaline Phosphatase Troponin T C-Reactive Protein Total Protein Albumin Triglycerides Cholesterol LDL Cholesterol Direct HDL Cholesterol Urine WBC (Auto) Urine Creatinine Urine Total Protein Vancomycin Trough Rheumatoid Factor Complement C4 Miscellaneous Test Crossmatch 09/25/16 09/25/16 09/25/16 04:57 08:02 10:30 WBC RBC Hgb Hct MCV MCH MCHC RDW Plt Count Lymph % (Auto) [place] % (Auto) Lymph # [place] # Seg Neutrophils % Seg Neuts % (Manual) Lymphocytes % (Manual) Monocytes % (Manual) Eosinophils % (Manual) Basophils % (Manual) Nucleated RBC % Seg Neutrophils # Seg Neutrophils # Man Lymphocytes # (Manual) Monocytes # (Manual) Eosinophils # (Manual) PT INR Fibrinogen dRVVT Confirm Interp Factor V Activity POC ABG pH POC ABG pCO2 24.7 L POC ABG pO2 152 H Sodium Potassium Chloride Carbon Dioxide BUN Creatinine Glucose POC Glucose 113 H Lactic Acid Calcium Phosphorus Magnesium Direct Bilirubin ALT Alkaline Phosphatase Troponin T C-Reactive Protein Total Protein Albumin Triglycerides Cholesterol LDL Cholesterol Direct HDL Cholesterol Urine WBC (Auto) Urine Creatinine Urine Total Protein Vancomycin Trough Rheumatoid Factor Complement C4 Miscellaneous Test Crossmatch See Detail 09/25/16 09/25/16 09/25/16 12:05 17:44 23:47 WBC RBC Hgb Hct MCV MCH MCHC RDW Plt Count Lymph % (Auto) [place] % (Auto) Lymph # [place] # Seg Neutrophils % Seg Neuts % (Manual) Lymphocytes % (Manual) Monocytes % (Manual) Eosinophils % (Manual) Basophils % (Manual) Nucleated RBC % Seg Neutrophils # Seg Neutrophils # Man Lymphocytes # (Manual) Monocytes # (Manual) Eosinophils # (Manual) PT INR Fibrinogen dRVVT Confirm Interp Factor V Activity POC ABG pH POC ABG pCO2 POC ABG pO2 Sodium Potassium Chloride Carbon Dioxide BUN Creatinine Glucose POC Glucose 117 H 119 H 150 H Lactic Acid Calcium Phosphorus Magnesium Direct Bilirubin ALT Alkaline Phosphatase Troponin T C-Reactive Protein Total Protein Albumin Triglycerides Cholesterol LDL Cholesterol Direct HDL Cholesterol Urine WBC (Auto) Urine Creatinine Urine Total Protein Vancomycin Trough Rheumatoid Factor Complement C4 Miscellaneous Test Crossmatch 09/26/16 09/26/16 09/26/16 04:25 04:25 04:25 WBC RBC 2.65 L Hgb 7.4 L Hct 21.6 L MCV MCH MCHC RDW 22.5 H Plt Count Lymph % (Auto) [place] % (Auto) Lymph # [place] # Seg Neutrophils % Seg Neuts % (Manual) Lymphocytes % (Manual) 6.0 L Monocytes % (Manual) Eosinophils % (Manual) 11.0 H Basophils % (Manual) Nucleated RBC % Seg Neutrophils # Seg Neutrophils # Man Lymphocytes # (Manual) 0.4 L Monocytes # (Manual) Eosinophils # (Manual) 0.6 H PT INR Fibrinogen dRVVT Confirm Interp Factor V Activity POC ABG pH POC ABG pCO2 POC ABG pO2 Sodium Potassium Chloride 97.0 L Carbon Dioxide 19 L BUN 43 H Creatinine 2.6 H Glucose 130 H POC Glucose Lactic Acid 4.40 H* Calcium 6.7 L Phosphorus Magnesium Direct Bilirubin ALT Alkaline Phosphatase Troponin T C-Reactive Protein Total Protein Albumin Triglycerides Cholesterol LDL Cholesterol Direct HDL Cholesterol Urine WBC (Auto) Urine Creatinine Urine Total Protein Vancomycin Trough Rheumatoid Factor Complement C4 Miscellaneous Test Crossmatch 09/26/16 09/26/16 09/26/16 05:20 11:44 12:12 WBC RBC Hgb Hct MCV MCH MCHC RDW Plt Count Lymph % (Auto) [place] % (Auto) Lymph # [place] # Seg Neutrophils % Seg Neuts % (Manual) Lymphocytes % (Manual) Monocytes % (Manual) Eosinophils % (Manual) Basophils % (Manual) Nucleated RBC % Seg Neutrophils # Seg Neutrophils # Man Lymphocytes # (Manual) Monocytes # (Manual) Eosinophils # (Manual) PT INR Fibrinogen dRVVT Confirm Interp Factor V Activity POC ABG pH POC ABG pCO2 27.0 L POC ABG pO2 69 L Sodium Potassium Chloride Carbon Dioxide BUN Creatinine Glucose POC Glucose 121 H 128 H Lactic Acid Calcium Phosphorus Magnesium Direct Bilirubin ALT Alkaline Phosphatase Troponin T C-Reactive Protein Total Protein Albumin Triglycerides Cholesterol LDL Cholesterol Direct HDL Cholesterol Urine WBC (Auto) Urine Creatinine Urine Total Protein Vancomycin Trough Rheumatoid Factor Complement C4 Miscellaneous Test Crossmatch 09/26/16 09/26/16 09/27/16 18:31 23:40 08:20 WBC RBC Hgb Hct MCV MCH MCHC RDW Plt Count Lymph % (Auto) [place] % (Auto) Lymph # [place] # Seg Neutrophils % Seg Neuts % (Manual) Lymphocytes % (Manual) Monocytes % (Manual) Eosinophils % (Manual) Basophils % (Manual) Nucleated RBC % Seg Neutrophils # Seg Neutrophils # Man Lymphocytes # (Manual) Monocytes # (Manual) Eosinophils # (Manual) PT INR Fibrinogen dRVVT Confirm Interp Factor V Activity POC ABG pH POC ABG pCO2 POC ABG pO2 Sodium Potassium Chloride Carbon Dioxide BUN Creatinine Glucose POC Glucose 120 H 133 H Lactic Acid 4.10 H* Calcium Phosphorus Magnesium Direct Bilirubin ALT Alkaline Phosphatase Troponin T C-Reactive Protein Total Protein Albumin Triglycerides Cholesterol LDL Cholesterol Direct HDL Cholesterol Urine WBC (Auto) Urine Creatinine Urine Total Protein Vancomycin Trough Rheumatoid Factor Complement C4 Miscellaneous Test Crossmatch 08/10/0609/27/16 09/27/16 11:23 15:00 18:15 WBC RBC Hgb Hct MCV MCH MCHC RDW Plt Count Lymph % (Auto) [place] % (Auto) Lymph # [place] # Seg Neutrophils % Seg Neuts % (Manual) Lymphocytes % (Manual) Monocytes % (Manual) Eosinophils % (Manual) Basophils % (Manual) Nucleated RBC % Seg Neutrophils # Seg Neutrophils # Man Lymphocytes # (Manual) Monocytes # (Manual) Eosinophils # (Manual) PT INR Fibrinogen dRVVT Confirm Interp Factor V Activity POC ABG pH 7.459 H POC ABG pCO2 27.1 L POC ABG pO2 140 H Sodium Potassium Chloride Carbon Dioxide BUN Creatinine Glucose POC Glucose 114 H 127 H Lactic Acid Calcium Phosphorus Magnesium Direct Bilirubin ALT Alkaline Phosphatase Troponin T C-Reactive Protein Total Protein Albumin Triglycerides Cholesterol LDL Cholesterol Direct HDL Cholesterol Urine WBC (Auto) Urine Creatinine Urine Total Protein Vancomycin Trough Rheumatoid Factor Complement C4 Miscellaneous Test Crossmatch 09/27/16 09/27/16 09/28/16 Unknown Unknown 03:45 WBC RBC 2.49 L Hgb 6.8 L Hct 20.7 L MCV MCH 27 L MCHC RDW 22.1 H Plt Count Lymph % (Auto) [place] % (Auto) Lymph # [place] # Seg Neutrophils % Seg Neuts % (Manual) 32.0 L Lymphocytes % (Manual) 12.0 L Monocytes % (Manual) 11.0 H Eosinophils % (Manual) 10.0 H Basophils % (Manual) Nucleated RBC % Seg Neutrophils # Seg Neutrophils # Man Lymphocytes # (Manual) 1.0 L Monocytes # (Manual) 0.9 H Eosinophils # (Manual) 0.8 H PT INR Fibrinogen dRVVT Confirm Interp Factor V Activity POC ABG pH POC ABG pCO2 POC ABG pO2 Sodium 135 L 135 L Potassium 3.5 L Chloride 93.6 L 94.4 L Carbon Dioxide 17 L 21 L BUN 45 H 28 H Creatinine 3.3 H 2.5 H Glucose 106 H POC Glucose Lactic Acid Calcium 7.3 L 7.1 L Phosphorus Magnesium Direct Bilirubin ALT Alkaline Phosphatase Troponin T C-Reactive Protein Total Protein Albumin Triglycerides Cholesterol LDL Cholesterol Direct HDL Cholesterol Urine WBC (Auto) Urine Creatinine Urine Total Protein Vancomycin Trough Rheumatoid Factor Complement C4 Miscellaneous Test Crossmatch 09/28/16 09/28/16 09/28/16 03:45 07:25 11:58 WBC 13.3 H RBC 3.01 L Hgb 8.4 L Hct 25.0 L MCV MCH MCHC RDW 20.5 H Plt Count 128 L Lymph % (Auto) [place] % (Auto) Lymph # [place] # Seg Neutrophils % Seg Neuts % (Manual) Lymphocytes % (Manual) 7.0 L Monocytes % (Manual) Eosinophils % (Manual) 6.0 H Basophils % (Manual) Nucleated RBC % Seg Neutrophils # Seg Neutrophils # Man Lymphocytes # (Manual) 0.9 L Monocytes # (Manual) Eosinophils # (Manual) 0.8 H PT INR Fibrinogen dRVVT Confirm Interp Factor V Activity POC ABG pH POC ABG pCO2 POC ABG pO2 Sodium Potassium Chloride Carbon Dioxide BUN Creatinine Glucose POC Glucose 121 H Lactic Acid 4.50 H* Calcium Phosphorus Magnesium Direct Bilirubin ALT Alkaline Phosphatase Troponin T C-Reactive Protein Total Protein Albumin Triglycerides Cholesterol LDL Cholesterol Direct HDL Cholesterol Urine WBC (Auto) Urine Creatinine Urine Total Protein Vancomycin Trough Rheumatoid Factor Complement C4 Miscellaneous Test Crossmatch 09/29/16 09/29/16 09/29/16 06:45 06:45 06:45 WBC 14.9 H RBC 2.74 L Hgb 7.6 L Hct 23.2 L MCV MCH MCHC RDW 20.5 H Plt Count 81 L Lymph % (Auto) [place] % (Auto) Lymph # [place] # Seg Neutrophils % Seg Neuts % (Manual) 81.0 H Lymphocytes % (Manual) 4.0 L Monocytes % (Manual) Eosinophils % (Manual) Basophils % (Manual) Nucleated RBC % Seg Neutrophils # Seg Neutrophils # Man 12.1 H Lymphocytes # (Manual) 0.6 L Monocytes # (Manual) Eosinophils # (Manual) PT INR Fibrinogen dRVVT Confirm Interp Factor V Activity POC ABG pH POC ABG pCO2 POC ABG pO2 Sodium 133 L Potassium 3.4 L Chloride 92.5 L Carbon Dioxide 21 L BUN 33 H Creatinine 3.0 H Glucose POC Glucose Lactic Acid Calcium 6.6 L Phosphorus Magnesium 1.40 L Direct Bilirubin 0.9 H ALT Alkaline Phosphatase Troponin T C-Reactive Protein Total Protein 4.3 L Albumin 1.3 L Triglycerides Cholesterol LDL Cholesterol Direct HDL Cholesterol Urine WBC (Auto) Urine Creatinine Urine Total Protein Vancomycin Trough Rheumatoid Factor Complement C4 Miscellaneous Test Crossmatch 09/29/16 09/29/16 09/30/16 17:52 20:12 00:07 WBC RBC Hgb Hct MCV MCH MCHC RDW Plt Count Lymph % (Auto) [place] % (Auto) Lymph # [place] # Seg Neutrophils % Seg Neuts % (Manual) Lymphocytes % (Manual) Monocytes % (Manual) Eosinophils % (Manual) Basophils % (Manual) Nucleated RBC % Seg Neutrophils # Seg Neutrophils # Man Lymphocytes # (Manual) Monocytes # (Manual) Eosinophils # (Manual) PT INR Fibrinogen dRVVT Confirm Interp Factor V Activity POC ABG pH POC ABG pCO2 POC ABG pO2 Sodium Potassium Chloride Carbon Dioxide BUN Creatinine Glucose POC Glucose 50 L 51 L Lactic Acid Calcium Phosphorus Magnesium Direct Bilirubin ALT Alkaline Phosphatase Troponin T 0.204 H* C-Reactive Protein Total Protein Albumin Triglycerides Cholesterol 31 L LDL Cholesterol Direct 4 L HDL Cholesterol 3 L Urine WBC (Auto) Urine Creatinine Urine Total Protein Vancomycin Trough Rheumatoid Factor Complement C4 Miscellaneous Test Crossmatch 09/30/16 09/30/16 09/30/16 01:30 05:15 06:10 WBC RBC Hgb Hct MCV MCH MCHC RDW Plt Count Lymph % (Auto) [place] % (Auto) Lymph # [place] # Seg Neutrophils % Seg Neuts % (Manual) Lymphocytes % (Manual) Monocytes % (Manual) Eosinophils % (Manual) Basophils % (Manual) Nucleated RBC % Seg Neutrophils # Seg Neutrophils # Man Lymphocytes # (Manual) Monocytes # (Manual) Eosinophils # (Manual) PT INR Fibrinogen dRVVT Confirm Interp Factor V Activity POC ABG pH POC ABG pCO2 POC ABG pO2 Sodium 133 L Potassium 3.2 L Chloride 93.2 L Carbon Dioxide 19 L BUN 36 H Creatinine 3.2 H Glucose 104 H POC Glucose 167 H 146 H Lactic Acid Calcium 6.4 L Phosphorus Magnesium 1.60 L Direct Bilirubin ALT Alkaline Phosphatase Troponin T C-Reactive Protein Total Protein Albumin Triglycerides Cholesterol LDL Cholesterol Direct HDL Cholesterol Urine WBC (Auto) Urine Creatinine Urine Total Protein Vancomycin Trough Rheumatoid Factor Complement C4 Miscellaneous Test Crossmatch 09/30/16 09/30/16 09/30/16 11:26 13:39 18:38 WBC RBC Hgb Hct MCV MCH MCHC RDW Plt Count Lymph % (Auto) [place] % (Auto) Lymph # [place] # Seg Neutrophils % Seg Neuts % (Manual) Lymphocytes % (Manual) Monocytes % (Manual) Eosinophils % (Manual) Basophils % (Manual) Nucleated RBC % Seg Neutrophils # Seg Neutrophils # Man Lymphocytes # (Manual) Monocytes # (Manual) Eosinophils # (Manual) PT INR Fibrinogen dRVVT Confirm Interp Factor V Activity POC ABG pH 7.479 H POC ABG pCO2 29.8 L POC ABG pO2 117 H Sodium Potassium Chloride Carbon Dioxide BUN Creatinine Glucose POC Glucose 140 H 122 H Lactic Acid Calcium Phosphorus Magnesium Direct Bilirubin ALT Alkaline Phosphatase Troponin T C-Reactive Protein Total Protein Albumin Triglycerides Cholesterol LDL Cholesterol Direct HDL Cholesterol Urine WBC (Auto) Urine Creatinine Urine Total Protein Vancomycin Trough Rheumatoid Factor Complement C4 Miscellaneous Test Crossmatch 10/01/16 10/01/16 10/01/16 06:00 06:00 12:37 WBC 12.6 H RBC 2.75 L Hgb 7.3 L Hct 23.3 L MCV MCH 27 L MCHC RDW 20.6 H Plt Count 72 L Lymph % (Auto) [place] % (Auto) Lymph # [place] # Seg Neutrophils % Seg Neuts % (Manual) 31.0 L Lymphocytes % (Manual) 8.0 L Monocytes % (Manual) Eosinophils % (Manual) Basophils % (Manual) Nucleated RBC % 3.0 H Seg Neutrophils # Seg Neutrophils # Man Lymphocytes # (Manual) 1.0 L Monocytes # (Manual) Eosinophils # (Manual) PT INR Fibrinogen dRVVT Confirm Interp Factor V Activity POC ABG pH POC ABG pCO2 POC ABG pO2 Sodium 127 L Potassium Chloride 86.8 L Carbon Dioxide 20 L BUN 42 H Creatinine 3.5 H Glucose POC Glucose 65 L Lactic Acid Calcium 7.0 L Phosphorus Magnesium Direct Bilirubin ALT Alkaline Phosphatase Troponin T C-Reactive Protein Total Protein Albumin Triglycerides Cholesterol LDL Cholesterol Direct HDL Cholesterol Urine WBC (Auto) Urine Creatinine Urine Total Protein Vancomycin Trough Rheumatoid Factor Complement C4 Miscellaneous Test Crossmatch 10/01/16 10/01/16 10/02/16 17:39 23:32 00:59 WBC RBC Hgb Hct MCV MCH MCHC RDW Plt Count Lymph % (Auto) [place] % (Auto) Lymph # [place] # Seg Neutrophils % Seg Neuts % (Manual) Lymphocytes % (Manual) Monocytes % (Manual) Eosinophils % (Manual) Basophils % (Manual) Nucleated RBC % Seg Neutrophils # Seg Neutrophils # Man Lymphocytes # (Manual) Monocytes # (Manual) Eosinophils # (Manual) PT INR Fibrinogen dRVVT Confirm Interp Factor V Activity POC ABG pH POC ABG pCO2 POC ABG pO2 Sodium Potassium Chloride Carbon Dioxide BUN Creatinine Glucose POC Glucose 107 H 52 L 145 H Lactic Acid Calcium Phosphorus Magnesium Direct Bilirubin ALT Alkaline Phosphatase Troponin T C-Reactive Protein Total Protein Albumin Triglycerides Cholesterol LDL Cholesterol Direct HDL Cholesterol Urine WBC (Auto) Urine Creatinine Urine Total Protein Vancomycin Trough Rheumatoid Factor Complement C4 Miscellaneous Test Crossmatch 10/02/16 10/02/16 10/02/16 10:30 10:50 10:50 WBC 14.7 H RBC 2.76 L Hgb 7.4 L Hct 23.6 L MCV MCH 27 L MCHC RDW 20.2 H Plt Count 79 L Lymph % (Auto) [place] % (Auto) Lymph # [place] # Seg Neutrophils % Seg Neuts % (Manual) 86.0 H Lymphocytes % (Manual) 6.0 L Monocytes % (Manual) Eosinophils % (Manual) Basophils % (Manual) Nucleated RBC % Seg Neutrophils # Seg Neutrophils # Man 12.6 H Lymphocytes # (Manual) 0.9 L Monocytes # (Manual) Eosinophils # (Manual) PT INR Fibrinogen dRVVT Confirm Interp Factor V Activity POC ABG pH 7.486 H POC ABG pCO2 30.1 L POC ABG pO2 108 H Sodium 131 L Potassium 3.4 L Chloride 89.9 L Carbon Dioxide BUN 26 H Creatinine 2.6 H Glucose POC Glucose Lactic Acid Calcium 7.0 L Phosphorus Magnesium Direct Bilirubin ALT Alkaline Phosphatase Troponin T C-Reactive Protein Total Protein Albumin Triglycerides Cholesterol LDL Cholesterol Direct HDL Cholesterol Urine WBC (Auto) Urine Creatinine Urine Total Protein Vancomycin Trough Rheumatoid Factor Complement C4 Miscellaneous Test Crossmatch 10/02/16 10/03/16 10/03/16 23:45 00:45 05:10 WBC 12.9 H RBC 2.77 L Hgb 7.6 L Hct 23.7 L MCV MCH 27 L MCHC RDW 19.7 H Plt Count 89 L Lymph % (Auto) [place] % (Auto) Lymph # [place] # Seg Neutrophils % Seg Neuts % (Manual) Lymphocytes % (Manual) 8.0 L Monocytes % (Manual) Eosinophils % (Manual) Basophils % (Manual) Nucleated RBC % Seg Neutrophils # 11.9 H Seg Neutrophils # Man Lymphocytes # (Manual) 1.0 L Monocytes # (Manual) Eosinophils # (Manual) PT INR Fibrinogen dRVVT Confirm Interp Factor V Activity POC ABG pH POC ABG pCO2 POC ABG pO2 Sodium Potassium Chloride Carbon Dioxide BUN Creatinine Glucose POC Glucose 55 L 199 H Lactic Acid Calcium Phosphorus Magnesium Direct Bilirubin ALT Alkaline Phosphatase Troponin T C-Reactive Protein Total Protein Albumin Triglycerides Cholesterol LDL Cholesterol Direct HDL Cholesterol Urine WBC (Auto) Urine Creatinine Urine Total Protein Vancomycin Trough Rheumatoid Factor Complement C4 Miscellaneous Test Crossmatch 10/03/16 10/03/16 10/03/16 05:10 12:14 13:18 WBC RBC Hgb Hct MCV MCH MCHC RDW Plt Count Lymph % (Auto) [place] % (Auto) Lymph # [place] # Seg Neutrophils % Seg Neuts % (Manual) Lymphocytes % (Manual) Monocytes % (Manual) Eosinophils % (Manual) Basophils % (Manual) Nucleated RBC % Seg Neutrophils # Seg Neutrophils # Man Lymphocytes # (Manual) Monocytes # (Manual) Eosinophils # (Manual) PT INR Fibrinogen dRVVT Confirm Interp Factor V Activity POC ABG pH POC ABG pCO2 POC ABG pO2 Sodium 129 L Potassium 3.3 L Chloride 88.8 L Carbon Dioxide 20 L BUN 29 H Creatinine 2.8 H Glucose POC Glucose 68 L 127 H Lactic Acid Calcium 7.2 L Phosphorus Magnesium Direct Bilirubin ALT Alkaline Phosphatase Troponin T C-Reactive Protein Total Protein Albumin Triglycerides Cholesterol LDL Cholesterol Direct HDL Cholesterol Urine WBC (Auto) Urine Creatinine Urine Total Protein Vancomycin Trough Rheumatoid Factor Complement C4 Miscellaneous Test Crossmatch 10/03/16 10/03/16 10/03/16 14:42 18:21 19:09 WBC RBC Hgb Hct MCV MCH MCHC RDW Plt Count Lymph % (Auto) [place] % (Auto) Lymph # [place] # Seg Neutrophils % Seg Neuts % (Manual) Lymphocytes % (Manual) Monocytes % (Manual) Eosinophils % (Manual) Basophils % (Manual) Nucleated RBC % Seg Neutrophils # Seg Neutrophils # Man Lymphocytes # (Manual) Monocytes # (Manual) Eosinophils # (Manual) PT INR Fibrinogen dRVVT Confirm Interp Factor V Activity POC ABG pH 7.499 H POC ABG pCO2 28.4 L POC ABG pO2 44 L Sodium Potassium Chloride Carbon Dioxide BUN Creatinine Glucose POC Glucose 64 L 205 H Lactic Acid Calcium Phosphorus Magnesium Direct Bilirubin ALT Alkaline Phosphatase Troponin T C-Reactive Protein Total Protein Albumin Triglycerides Cholesterol LDL Cholesterol Direct HDL Cholesterol Urine WBC (Auto) Urine Creatinine Urine Total Protein Vancomycin Trough Rheumatoid Factor Complement C4 Miscellaneous Test Crossmatch 10/03/16 10/04/16 10/04/16 23:33 04:18 06:30 WBC RBC 2.54 L Hgb 7.1 L Hct 21.7 L MCV MCH MCHC RDW 19.5 H Plt Count 76 L Lymph % (Auto) [place] % (Auto) Lymph # [place] # Seg Neutrophils % Seg Neuts % (Manual) 88.0 H Lymphocytes % (Manual) 6.0 L Monocytes % (Manual) Eosinophils % (Manual) Basophils % (Manual) Nucleated RBC % Seg Neutrophils # Seg Neutrophils # Man 8.8 H Lymphocytes # (Manual) 0.6 L Monocytes # (Manual) Eosinophils # (Manual) PT INR Fibrinogen dRVVT Confirm Interp Factor V Activity POC ABG pH 7.461 H POC ABG pCO2 33.6 L POC ABG pO2 211 H Sodium Potassium Chloride Carbon Dioxide BUN Creatinine Glucose POC Glucose 136 H Lactic Acid Calcium Phosphorus Magnesium Direct Bilirubin ALT Alkaline Phosphatase Troponin T C-Reactive Protein Total Protein Albumin Triglycerides Cholesterol LDL Cholesterol Direct HDL Cholesterol Urine WBC (Auto) Urine Creatinine Urine Total Protein Vancomycin Trough Rheumatoid Factor Complement C4 Miscellaneous Test Crossmatch 10/04/16 10/04/16 10/04/16 06:30 11:45 17:54 WBC RBC Hgb Hct MCV MCH MCHC RDW Plt Count Lymph % (Auto) [place] % (Auto) Lymph # [place] # Seg Neutrophils % Seg Neuts % (Manual) Lymphocytes % (Manual) Monocytes % (Manual) Eosinophils % (Manual) Basophils % (Manual) Nucleated RBC % Seg Neutrophils # Seg Neutrophils # Man Lymphocytes # (Manual) Monocytes # (Manual) Eosinophils # (Manual) PT INR Fibrinogen dRVVT Confirm Interp Factor V Activity POC ABG pH POC ABG pCO2 POC ABG pO2 Sodium 128 L Potassium Chloride 87.4 L Carbon Dioxide 20 L BUN 34 H Creatinine 2.9 H Glucose 127 H POC Glucose 158 H 160 H Lactic Acid Calcium 7.4 L Phosphorus Magnesium Direct Bilirubin ALT Alkaline Phosphatase Troponin T C-Reactive Protein Total Protein Albumin Triglycerides Cholesterol LDL Cholesterol Direct HDL Cholesterol Urine WBC (Auto) Urine Creatinine Urine Total Protein Vancomycin Trough Rheumatoid Factor Complement C4 Miscellaneous Test Crossmatch 10/04/16 10/05/16 10/05/16 23:25 04:30 05:00 WBC RBC 2.64 L Hgb 7.5 L Hct 22.6 L MCV MCH MCHC RDW 19.3 H Plt Count 80 L Lymph % (Auto) [place] % (Auto) Lymph # [place] # Seg Neutrophils % Seg Neuts % (Manual) Lymphocytes % (Manual) 12.0 L Monocytes % (Manual) Eosinophils % (Manual) Basophils % (Manual) Nucleated RBC % Seg Neutrophils # Seg Neutrophils # Man Lymphocytes # (Manual) Monocytes # (Manual) Eosinophils # (Manual) PT INR Fibrinogen dRVVT Confirm Interp Factor V Activity POC ABG pH 7.475 H POC ABG pCO2 33.3 L POC ABG pO2 140 H Sodium Potassium Chloride Carbon Dioxide BUN Creatinine Glucose POC Glucose 141 H Lactic Acid Calcium Phosphorus Magnesium Direct Bilirubin ALT Alkaline Phosphatase Troponin T C-Reactive Protein Total Protein Albumin Triglycerides Cholesterol LDL Cholesterol Direct HDL Cholesterol Urine WBC (Auto) Urine Creatinine Urine Total Protein Vancomycin Trough Rheumatoid Factor Complement C4 Miscellaneous Test Crossmatch 10/05/16 10/05/16 10/05/16 05:00 05:09 12:58 WBC RBC Hgb Hct MCV MCH MCHC RDW Plt Count Lymph % (Auto) [place] % (Auto) Lymph # [place] # Seg Neutrophils % Seg Neuts % (Manual) Lymphocytes % (Manual) Monocytes % (Manual) Eosinophils % (Manual) Basophils % (Manual) Nucleated RBC % Seg Neutrophils # Seg Neutrophils # Man Lymphocytes # (Manual) Monocytes # (Manual) Eosinophils # (Manual) PT INR Fibrinogen dRVVT Confirm Interp Factor V Activity POC ABG pH POC ABG pCO2 POC ABG pO2 Sodium 131 L Potassium Chloride 94.0 L Carbon Dioxide 20 L BUN 22 H Creatinine 2.0 H Glucose 123 H POC Glucose 166 H 179 H Lactic Acid Calcium 7.7 L Phosphorus 2.20 L D Magnesium Direct Bilirubin ALT Alkaline Phosphatase Troponin T C-Reactive Protein Total Protein Albumin Triglycerides Cholesterol LDL Cholesterol Direct HDL Cholesterol Urine WBC (Auto) Urine Creatinine Urine Total Protein Vancomycin Trough Rheumatoid Factor Complement C4 Miscellaneous Test Crossmatch 10/05/16 10/05/16 10/05/16 15:50 18:53 23:12 WBC RBC Hgb Hct MCV MCH MCHC RDW Plt Count Lymph % (Auto) [place] % (Auto) Lymph # [place] # Seg Neutrophils % Seg Neuts % (Manual) Lymphocytes % (Manual) Monocytes % (Manual) Eosinophils % (Manual) Basophils % (Manual) Nucleated RBC % Seg Neutrophils # Seg Neutrophils # Man Lymphocytes # (Manual) Monocytes # (Manual) Eosinophils # (Manual) PT INR Fibrinogen dRVVT Confirm Interp Factor V Activity POC ABG pH POC ABG pCO2 POC ABG pO2 Sodium Potassium Chloride Carbon Dioxide BUN Creatinine Glucose POC Glucose 150 H 164 H Lactic Acid Calcium Phosphorus Magnesium Direct Bilirubin ALT Alkaline Phosphatase Troponin T C-Reactive Protein Total Protein Albumin Triglycerides Cholesterol LDL Cholesterol Direct HDL Cholesterol Urine WBC (Auto) Urine Creatinine Urine Total Protein Vancomycin Trough Rheumatoid Factor Complement C4 Miscellaneous Test Crossmatch See Detail 10/06/16 10/06/16 10/06/16 03:50 03:50 04:53 WBC RBC 3.00 L Hgb 8.6 L Hct 25.8 L MCV MCH MCHC RDW 17.9 H Plt Count 65 L Lymph % (Auto) [place] % (Auto) Lymph # [place] # Seg Neutrophils % Seg Neuts % (Manual) 30.0 L Lymphocytes % (Manual) 5.0 L Monocytes % (Manual) Eosinophils % (Manual) Basophils % (Manual) Nucleated RBC % Seg Neutrophils # Seg Neutrophils # Man Lymphocytes # (Manual) 0.4 L Monocytes # (Manual) Eosinophils # (Manual) PT INR Fibrinogen dRVVT Confirm Interp Factor V Activity POC ABG pH 7.310 L POC ABG pCO2 49.0 H POC ABG pO2 Sodium 133 L Potassium Chloride 95.9 L Carbon Dioxide BUN 26 H Creatinine 2.0 H Glucose 116 H POC Glucose Lactic Acid Calcium 7.8 L Phosphorus Magnesium Direct Bilirubin ALT Alkaline Phosphatase Troponin T C-Reactive Protein Total Protein Albumin Triglycerides Cholesterol LDL Cholesterol Direct HDL Cholesterol Urine WBC (Auto) Urine Creatinine Urine Total Protein Vancomycin Trough Rheumatoid Factor Complement C4 Miscellaneous Test Crossmatch 10/06/16 10/06/16 10/06/16 05:23 11:52 18:34 WBC RBC Hgb Hct MCV MCH MCHC RDW Plt Count Lymph % (Auto) [place] % (Auto) Lymph # [place] # Seg Neutrophils % Seg Neuts % (Manual) Lymphocytes % (Manual) Monocytes % (Manual) Eosinophils % (Manual) Basophils % (Manual) Nucleated RBC % Seg Neutrophils # Seg Neutrophils # Man Lymphocytes # (Manual) Monocytes # (Manual) Eosinophils # (Manual) PT INR Fibrinogen dRVVT Confirm Interp Factor V Activity POC ABG pH POC ABG pCO2 POC ABG pO2 Sodium Potassium Chloride Carbon Dioxide BUN Creatinine Glucose POC Glucose 126 H 116 H 129 H Lactic Acid Calcium Phosphorus Magnesium Direct Bilirubin ALT Alkaline Phosphatase Troponin T C-Reactive Protein Total Protein Albumin Triglycerides Cholesterol LDL Cholesterol Direct HDL Cholesterol Urine WBC (Auto) Urine Creatinine Urine Total Protein Vancomycin Trough Rheumatoid Factor Complement C4 Miscellaneous Test Crossmatch 10/07/16 10/07/16 10/07/16 03:45 05:00 10:00 WBC 17.0 H RBC 2.68 L Hgb 7.3 L Hct 25.3 L MCV MCH 27 L MCHC 29 L RDW 19.6 H Plt Count 74 L Lymph % (Auto) [place] % (Auto) Lymph # [place] # Seg Neutrophils % Seg Neuts % (Manual) Lymphocytes % (Manual) 12.0 L Monocytes % (Manual) Eosinophils % (Manual) Basophils % (Manual) Nucleated RBC % 4.0 H Seg Neutrophils # Seg Neutrophils # Man 10.7 H Lymphocytes # (Manual) Monocytes # (Manual) Eosinophils # (Manual) PT INR Fibrinogen dRVVT Confirm Interp Factor V Activity POC ABG pH POC ABG pCO2 POC ABG pO2 Sodium 130 L Potassium 3.2 L Chloride 93.9 L Carbon Dioxide 20 L BUN 44 H Creatinine 2.7 H Glucose 129 H POC Glucose Lactic Acid Calcium 7.4 L Phosphorus Magnesium Direct Bilirubin ALT 6 L Alkaline Phosphatase 195 H Troponin T C-Reactive Protein Total Protein 4.9 L Albumin 1.0 L Triglycerides Cholesterol LDL Cholesterol Direct HDL Cholesterol Urine WBC (Auto) Urine Creatinine Urine Total Protein Vancomycin Trough Rheumatoid Factor Complement C4 Miscellaneous Test Flexitest 1 H Crossmatch 10/07/16 10/07/16 10/07/16 10:00 11:24 18:10 WBC RBC Hgb Hct MCV MCH MCHC RDW Plt Count Lymph % (Auto) [place] % (Auto) Lymph # [place] # Seg Neutrophils % Seg Neuts % (Manual) Lymphocytes % (Manual) Monocytes % (Manual) Eosinophils % (Manual) Basophils % (Manual) Nucleated RBC % Seg Neutrophils # Seg Neutrophils # Man Lymphocytes # (Manual) Monocytes # (Manual) Eosinophils # (Manual) PT INR Fibrinogen dRVVT Confirm Interp Factor V Activity POC ABG pH POC ABG pCO2 POC ABG pO2 Sodium Potassium Chloride Carbon Dioxide BUN Creatinine Glucose POC Glucose 116 H 130 H Lactic Acid Calcium Phosphorus Magnesium Direct Bilirubin ALT Alkaline Phosphatase Troponin T C-Reactive Protein 19.40 H Total Protein Albumin Triglycerides Cholesterol LDL Cholesterol Direct HDL Cholesterol Urine WBC (Auto) Urine Creatinine Urine Total Protein Vancomycin Trough Rheumatoid Factor Complement C4 Miscellaneous Test Crossmatch 10/07/16 10/08/16 10/08/16 18:30 00:00 04:00 WBC RBC Hgb Hct MCV MCH MCHC RDW Plt Count Lymph % (Auto) [place] % (Auto) Lymph # [place] # Seg Neutrophils % Seg Neuts % (Manual) Lymphocytes % (Manual) Monocytes % (Manual) Eosinophils % (Manual) Basophils % (Manual) Nucleated RBC % Seg Neutrophils # Seg Neutrophils # Man Lymphocytes # (Manual) Monocytes # (Manual) Eosinophils # (Manual) PT INR Fibrinogen dRVVT Confirm Interp Factor V Activity POC ABG pH POC ABG pCO2 POC ABG pO2 Sodium 132 L Potassium 3.3 L Chloride 93.6 L Carbon Dioxide 17 L BUN 59 H Creatinine 2.7 H Glucose 121 H POC Glucose 122 H Lactic Acid Calcium 7.6 L Phosphorus Magnesium Direct Bilirubin ALT Alkaline Phosphatase Troponin T C-Reactive Protein Total Protein Albumin Triglycerides Cholesterol LDL Cholesterol Direct HDL Cholesterol Urine WBC (Auto) > 182.0 H Urine Creatinine Urine Total Protein Vancomycin Trough Rheumatoid Factor Complement C4 Miscellaneous Test Crossmatch 10/08/16 10/08/16 10/08/16 04:30 05:30 11:51 WBC RBC 5.15 H Hgb 14.4 H D Hct 44.5 H D MCV MCH MCHC RDW 19.5 H Plt Count 56 L Lymph % (Auto) [place] % (Auto) Lymph # [place] # Seg Neutrophils % Seg Neuts % (Manual) 24.0 L Lymphocytes % (Manual) 8.0 L Monocytes % (Manual) Eosinophils % (Manual) Basophils % (Manual) Nucleated RBC % 9.0 H Seg Neutrophils # Seg Neutrophils # Man Lymphocytes # (Manual) 0.7 L Monocytes # (Manual) Eosinophils # (Manual) PT INR Fibrinogen dRVVT Confirm Interp Factor V Activity POC ABG pH POC ABG pCO2 POC ABG pO2 Sodium Potassium Chloride Carbon Dioxide BUN Creatinine Glucose POC Glucose 125 H 150 H Lactic Acid Calcium Phosphorus Magnesium Direct Bilirubin ALT Alkaline Phosphatase Troponin T C-Reactive Protein Total Protein Albumin Triglycerides Cholesterol LDL Cholesterol Direct HDL Cholesterol Urine WBC (Auto) Urine Creatinine Urine Total Protein Vancomycin Trough Rheumatoid Factor Complement C4 Miscellaneous Test Crossmatch 10/08/16 10/08/16 10/08/16 12:49 17:07 19:30 WBC RBC Hgb 7.1 L D Hct 22.4 L D MCV MCH MCHC RDW Plt Count Lymph % (Auto) [place] % (Auto) Lymph # [place] # Seg Neutrophils % Seg Neuts % (Manual) Lymphocytes % (Manual) Monocytes % (Manual) Eosinophils % (Manual) Basophils % (Manual) Nucleated RBC % Seg Neutrophils # Seg Neutrophils # Man Lymphocytes # (Manual) Monocytes # (Manual) Eosinophils # (Manual) PT INR Fibrinogen dRVVT Confirm Interp Factor V Activity POC ABG pH POC ABG pCO2 28.2 L POC ABG pO2 111 H Sodium Potassium Chloride Carbon Dioxide BUN Creatinine Glucose POC Glucose 145 H Lactic Acid Calcium Phosphorus Magnesium Direct Bilirubin ALT Alkaline Phosphatase Troponin T C-Reactive Protein Total Protein Albumin Triglycerides Cholesterol LDL Cholesterol Direct HDL Cholesterol Urine WBC (Auto) Urine Creatinine Urine Total Protein Vancomycin Trough Rheumatoid Factor Complement C4 Miscellaneous Test Crossmatch 10/08/16 10/09/16 10/09/16 19:30 03:45 03:45 WBC 12.6 H RBC 2.36 L Hgb 6.7 L Hct 21.1 L MCV MCH MCHC RDW 19.5 H Plt Count 75 L Lymph % (Auto) [place] % (Auto) Lymph # [place] # Seg Neutrophils % Seg Neuts % (Manual) Lymphocytes % (Manual) Monocytes % (Manual) 10.0 H Eosinophils % (Manual) Basophils % (Manual) Nucleated RBC % 3.0 H Seg Neutrophils # Seg Neutrophils # Man Lymphocytes # (Manual) Monocytes # (Manual) 1.3 H Eosinophils # (Manual) PT 18.0 H INR 1.41 H Fibrinogen dRVVT Confirm Interp Factor V Activity POC ABG pH POC ABG pCO2 POC ABG pO2 Sodium 135 L Potassium Chloride Carbon Dioxide 17 L BUN 81 H Creatinine 3.2 H Glucose 109 H POC Glucose Lactic Acid Calcium 7.4 L Phosphorus 4.60 H D Magnesium Direct Bilirubin ALT Alkaline Phosphatase Troponin T C-Reactive Protein Total Protein Albumin Triglycerides Cholesterol LDL Cholesterol Direct HDL Cholesterol Urine WBC (Auto) Urine Creatinine Urine Total Protein Vancomycin Trough Rheumatoid Factor Complement C4 Miscellaneous Test Crossmatch 10/09/16 10/09/16 10/09/16 03:45 05:14 07:20 WBC RBC Hgb Hct MCV MCH MCHC RDW Plt Count Lymph % (Auto) [place] % (Auto) Lymph # [place] # Seg Neutrophils % Seg Neuts % (Manual) Lymphocytes % (Manual) Monocytes % (Manual) Eosinophils % (Manual) Basophils % (Manual) Nucleated RBC % Seg Neutrophils # Seg Neutrophils # Man Lymphocytes # (Manual) Monocytes # (Manual) Eosinophils # (Manual) PT 19.0 H INR 1.51 H Fibrinogen dRVVT Confirm Interp Factor V Activity POC ABG pH POC ABG pCO2 POC ABG pO2 Sodium Potassium Chloride Carbon Dioxide BUN Creatinine Glucose POC Glucose 151 H Lactic Acid Calcium Phosphorus Magnesium Direct Bilirubin ALT Alkaline Phosphatase Troponin T C-Reactive Protein Total Protein Albumin Triglycerides Cholesterol LDL Cholesterol Direct HDL Cholesterol Urine WBC (Auto) Urine Creatinine Urine Total Protein Vancomycin Trough Rheumatoid Factor Complement C4 Miscellaneous Test Crossmatch See Detail 10/09/16 10/09/16 10/09/16 11:46 16:20 16:43 WBC RBC Hgb 7.2 L Hct 22.2 L MCV MCH MCHC RDW Plt Count Lymph % (Auto) [place] % (Auto) Lymph # [place] # Seg Neutrophils % Seg Neuts % (Manual) Lymphocytes % (Manual) Monocytes % (Manual) Eosinophils % (Manual) Basophils % (Manual) Nucleated RBC % Seg Neutrophils # Seg Neutrophils # Man Lymphocytes # (Manual) Monocytes # (Manual) Eosinophils # (Manual) PT INR Fibrinogen dRVVT Confirm Interp Factor V Activity POC ABG pH POC ABG pCO2 POC ABG pO2 Sodium Potassium Chloride Carbon Dioxide BUN Creatinine Glucose POC Glucose 133 H 141 H Lactic Acid Calcium Phosphorus Magnesium Direct Bilirubin ALT Alkaline Phosphatase Troponin T C-Reactive Protein Total Protein Albumin Triglycerides Cholesterol LDL Cholesterol Direct HDL Cholesterol Urine WBC (Auto) Urine Creatinine Urine Total Protein Vancomycin Trough Rheumatoid Factor Complement C4 Miscellaneous Test Crossmatch 10/10/16 10/10/16 10/10/16 05:00 05:00 11:19 WBC 18.5 H RBC 2.19 L Hgb 6.4 L Hct 19.6 L* MCV MCH MCHC RDW 19.3 H Plt Count 93 L Lymph % (Auto) [place] % (Auto) Lymph # [place] # Seg Neutrophils % Seg Neuts % (Manual) Lymphocytes % (Manual) 10.0 L Monocytes % (Manual) Eosinophils % (Manual) Basophils % (Manual) Nucleated RBC % 4.0 H Seg Neutrophils # Seg Neutrophils # Man 11.3 H Lymphocytes # (Manual) Monocytes # (Manual) Eosinophils # (Manual) PT INR Fibrinogen dRVVT Confirm Interp Factor V Activity POC ABG pH POC ABG pCO2 POC ABG pO2 Sodium Potassium 5.7 H D Chloride Carbon Dioxide 16 L BUN 94 H Creatinine 3.1 H Glucose 131 H POC Glucose 153 H Lactic Acid Calcium 8.2 L Phosphorus 5.10 H Magnesium 2.40 H Direct Bilirubin 0.3 H ALT < 5 L Alkaline Phosphatase 319 H Troponin T C-Reactive Protein Total Protein 5.1 L Albumin 1.0 L Triglycerides Cholesterol LDL Cholesterol Direct HDL Cholesterol Urine WBC (Auto) Urine Creatinine Urine Total Protein Vancomycin Trough Rheumatoid Factor Complement C4 Miscellaneous Test Crossmatch 10/10/16 10/10/16 10/11/16 17:50 23:30 04:15 WBC RBC Hgb Hct MCV MCH MCHC RDW Plt Count Lymph % (Auto) [place] % (Auto) Lymph # [place] # Seg Neutrophils % Seg Neuts % (Manual) Lymphocytes % (Manual) Monocytes % (Manual) Eosinophils % (Manual) Basophils % (Manual) Nucleated RBC % Seg Neutrophils # Seg Neutrophils # Man Lymphocytes # (Manual) Monocytes # (Manual) Eosinophils # (Manual) PT INR Fibrinogen dRVVT Confirm Interp Factor V Activity POC ABG pH POC ABG pCO2 POC ABG pO2 Sodium Potassium Chloride 96.4 L Carbon Dioxide 21 L BUN 57 H Creatinine 2.1 H Glucose 151 H POC Glucose 146 H 141 H Lactic Acid Calcium 8.3 L Phosphorus Magnesium Direct Bilirubin ALT Alkaline Phosphatase Troponin T C-Reactive Protein Total Protein Albumin Triglycerides Cholesterol LDL Cholesterol Direct HDL Cholesterol Urine WBC (Auto) Urine Creatinine Urine Total Protein Vancomycin Trough Rheumatoid Factor Complement C4 Miscellaneous Test Crossmatch 10/11/16 10/11/16 10/11/16 04:15 04:15 05:30 WBC 28.3 H RBC 3.12 L Hgb 9.3 L Hct 28.7 L D MCV MCH MCHC RDW 17.7 H Plt Count 128 L Lymph % (Auto) [place] % (Auto) Lymph # [place] # Seg Neutrophils % Seg Neuts % (Manual) Lymphocytes % (Manual) Monocytes % (Manual) Eosinophils % (Manual) Basophils % (Manual) Nucleated RBC % Seg Neutrophils # Seg Neutrophils # Man Lymphocytes # (Manual) Monocytes # (Manual) Eosinophils # (Manual) PT INR Fibrinogen dRVVT Confirm Interp Factor V Activity POC ABG pH POC ABG pCO2 POC ABG pO2 Sodium Potassium Chloride Carbon Dioxide BUN Creatinine Glucose POC Glucose 167 H Lactic Acid Calcium Phosphorus Magnesium Direct Bilirubin ALT Alkaline Phosphatase Troponin T C-Reactive Protein 15.80 H Total Protein Albumin Triglycerides Cholesterol LDL Cholesterol Direct HDL Cholesterol Urine WBC (Auto) Urine Creatinine Urine Total Protein Vancomycin Trough Rheumatoid Factor Complement C4 Miscellaneous Test Crossmatch 10/11/16 10/11/16 10/11/16 11:40 15:49 23:57 WBC RBC Hgb Hct MCV MCH MCHC RDW Plt Count Lymph % (Auto) [place] % (Auto) Lymph # [place] # Seg Neutrophils % Seg Neuts % (Manual) Lymphocytes % (Manual) Monocytes % (Manual) Eosinophils % (Manual) Basophils % (Manual) Nucleated RBC % Seg Neutrophils # Seg Neutrophils # Man Lymphocytes # (Manual) Monocytes # (Manual) Eosinophils # (Manual) PT INR Fibrinogen dRVVT Confirm Interp Factor V Activity POC ABG pH POC ABG pCO2 POC ABG pO2 Sodium Potassium Chloride Carbon Dioxide BUN Creatinine Glucose POC Glucose 139 H 168 H 161 H Lactic Acid Calcium Phosphorus Magnesium Direct Bilirubin ALT Alkaline Phosphatase Troponin T C-Reactive Protein Total Protein Albumin Triglycerides Cholesterol LDL Cholesterol Direct HDL Cholesterol Urine WBC (Auto) Urine Creatinine Urine Total Protein Vancomycin Trough Rheumatoid Factor Complement C4 Miscellaneous Test Crossmatch 10/12/16 10/12/16 10/12/16 04:40 04:40 05:44 WBC 22.5 H RBC 2.88 L Hgb 8.8 L Hct 26.8 L MCV MCH MCHC RDW 17.8 H Plt Count Lymph % (Auto) [place] % (Auto) Lymph # [place] # Seg Neutrophils % Seg Neuts % (Manual) Lymphocytes % (Manual) Monocytes % (Manual) Eosinophils % (Manual) Basophils % (Manual) Nucleated RBC % Seg Neutrophils # Seg Neutrophils # Man Lymphocytes # (Manual) Monocytes # (Manual) Eosinophils # (Manual) PT INR Fibrinogen dRVVT Confirm Interp Factor V Activity POC ABG pH POC ABG pCO2 POC ABG pO2 Sodium 134 L Potassium Chloride 93.0 L Carbon Dioxide BUN 74 H Creatinine 2.5 H Glucose 137 H POC Glucose 158 H Lactic Acid Calcium 8.2 L Phosphorus Magnesium Direct Bilirubin ALT Alkaline Phosphatase Troponin T C-Reactive Protein Total Protein Albumin Triglycerides Cholesterol LDL Cholesterol Direct HDL Cholesterol Urine WBC (Auto) Urine Creatinine Urine Total Protein Vancomycin Trough Rheumatoid Factor Complement C4 Miscellaneous Test Crossmatch 10/12/16 10/12/16 10/12/16 12:27 18:18 23:46 WBC RBC Hgb Hct MCV MCH MCHC RDW Plt Count Lymph % (Auto) [place] % (Auto) Lymph # [place] # Seg Neutrophils % Seg Neuts % (Manual) Lymphocytes % (Manual) Monocytes % (Manual) Eosinophils % (Manual) Basophils % (Manual) Nucleated RBC % Seg Neutrophils # Seg Neutrophils # Man Lymphocytes # (Manual) Monocytes # (Manual) Eosinophils # (Manual) PT INR Fibrinogen dRVVT Confirm Interp Factor V Activity POC ABG pH POC ABG pCO2 POC ABG pO2 Sodium Potassium Chloride Carbon Dioxide BUN Creatinine Glucose POC Glucose 153 H 140 H 150 H Lactic Acid Calcium Phosphorus Magnesium Direct Bilirubin ALT Alkaline Phosphatase Troponin T C-Reactive Protein Total Protein Albumin Triglycerides Cholesterol LDL Cholesterol Direct HDL Cholesterol Urine WBC (Auto) Urine Creatinine Urine Total Protein Vancomycin Trough Rheumatoid Factor Complement C4 Miscellaneous Test Crossmatch 10/13/16 10/13/16 10/13/16 06:22 09:20 12:29 WBC RBC Hgb Hct MCV MCH MCHC RDW Plt Count Lymph % (Auto) [place] % (Auto) Lymph # [place] # Seg Neutrophils % Seg Neuts % (Manual) Lymphocytes % (Manual) Monocytes % (Manual) Eosinophils % (Manual) Basophils % (Manual) Nucleated RBC % Seg Neutrophils # Seg Neutrophils # Man Lymphocytes # (Manual) Monocytes # (Manual) Eosinophils # (Manual) PT INR Fibrinogen dRVVT Confirm Interp Factor V Activity POC ABG pH POC ABG pCO2 POC ABG pO2 Sodium Potassium Chloride Carbon Dioxide BUN Creatinine Glucose POC Glucose 165 H 193 H Lactic Acid Calcium Phosphorus Magnesium Direct Bilirubin ALT Alkaline Phosphatase Troponin T C-Reactive Protein Total Protein Albumin Triglycerides Cholesterol LDL Cholesterol Direct HDL Cholesterol Urine WBC (Auto) Urine Creatinine Urine Total Protein Vancomycin Trough Rheumatoid Factor Complement C4 Miscellaneous Test Flexitest 1 H Crossmatch 10/13/16 10/13/16 10/13/16 18:09 Unknown Unknown WBC 23.4 H RBC 2.83 L Hgb 8.7 L Hct 26.1 L MCV MCH MCHC RDW 18.1 H Plt Count Lymph % (Auto) [place] % (Auto) Lymph # [place] # Seg Neutrophils % Seg Neuts % (Manual) Lymphocytes % (Manual) Monocytes % (Manual) Eosinophils % (Manual) Basophils % (Manual) Nucleated RBC % Seg Neutrophils # Seg Neutrophils # Man Lymphocytes # (Manual) Monocytes # (Manual) Eosinophils # (Manual) PT INR Fibrinogen dRVVT Confirm Interp Factor V Activity POC ABG pH POC ABG pCO2 POC ABG pO2 Sodium Potassium Chloride 95.8 L Carbon Dioxide BUN 82 H Creatinine 2.6 H Glucose 152 H POC Glucose 166 H Lactic Acid Calcium Phosphorus Magnesium Direct Bilirubin ALT Alkaline Phosphatase Troponin T C-Reactive Protein Total Protein Albumin Triglycerides Cholesterol LDL Cholesterol Direct HDL Cholesterol Urine WBC (Auto) Urine Creatinine Urine Total Protein Vancomycin Trough Rheumatoid Factor Complement C4 Miscellaneous Test Crossmatch 10/14/16 10/14/16 10/14/16 05:38 06:35 08:10 WBC 20.7 H RBC 2.81 L Hgb 8.4 L Hct 27.2 L MCV MCH MCHC RDW 19.4 H Plt Count Lymph % (Auto) [place] % (Auto) Lymph # [place] # Seg Neutrophils % Seg Neuts % (Manual) Lymphocytes % (Manual) Monocytes % (Manual) Eosinophils % (Manual) Basophils % (Manual) Nucleated RBC % Seg Neutrophils # Seg Neutrophils # Man Lymphocytes # (Manual) Monocytes # (Manual) Eosinophils # (Manual) PT INR Fibrinogen dRVVT Confirm Interp Factor V Activity POC ABG pH POC ABG pCO2 POC ABG pO2 Sodium Potassium Chloride Carbon Dioxide BUN 58 H Creatinine 1.9 H Glucose 169 H POC Glucose 195 H Lactic Acid Calcium Phosphorus Magnesium Direct Bilirubin ALT Alkaline Phosphatase Troponin T C-Reactive Protein Total Protein Albumin Triglycerides Cholesterol LDL Cholesterol Direct HDL Cholesterol Urine WBC (Auto) Urine Creatinine Urine Total Protein Vancomycin Trough Rheumatoid Factor Complement C4 Miscellaneous Test Crossmatch 10/14/16 10/14/16 10/14/16 11:44 17:13 23:28 WBC RBC Hgb Hct MCV MCH MCHC RDW Plt Count Lymph % (Auto) [place] % (Auto) Lymph # [place] # Seg Neutrophils % Seg Neuts % (Manual) Lymphocytes % (Manual) Monocytes % (Manual) Eosinophils % (Manual) Basophils % (Manual) Nucleated RBC % Seg Neutrophils # Seg Neutrophils # Man Lymphocytes # (Manual) Monocytes # (Manual) Eosinophils # (Manual) PT INR Fibrinogen dRVVT Confirm Interp Factor V Activity POC ABG pH POC ABG pCO2 POC ABG pO2 Sodium Potassium Chloride Carbon Dioxide BUN Creatinine Glucose POC Glucose 174 H 121 H 151 H Lactic Acid Calcium Phosphorus Magnesium Direct Bilirubin ALT Alkaline Phosphatase Troponin T C-Reactive Protein Total Protein Albumin Triglycerides Cholesterol LDL Cholesterol Direct HDL Cholesterol Urine WBC (Auto) Urine Creatinine Urine Total Protein Vancomycin Trough Rheumatoid Factor Complement C4 Miscellaneous Test Crossmatch 10/15/16 10/15/16 10/15/16 05:06 12:26 17:48 WBC RBC Hgb Hct MCV MCH MCHC RDW Plt Count Lymph % (Auto) [place] % (Auto) Lymph # [place] # Seg Neutrophils % Seg Neuts % (Manual) Lymphocytes % (Manual) Monocytes % (Manual) Eosinophils % (Manual) Basophils % (Manual) Nucleated RBC % Seg Neutrophils # Seg Neutrophils # Man Lymphocytes # (Manual) Monocytes # (Manual) Eosinophils # (Manual) PT INR Fibrinogen dRVVT Confirm Interp Factor V Activity POC ABG pH POC ABG pCO2 POC ABG pO2 Sodium Potassium Chloride Carbon Dioxide BUN Creatinine Glucose POC Glucose 151 H 149 H 153 H Lactic Acid Calcium Phosphorus Magnesium Direct Bilirubin ALT Alkaline Phosphatase Troponin T C-Reactive Protein Total Protein Albumin Triglycerides Cholesterol LDL Cholesterol Direct HDL Cholesterol Urine WBC (Auto) Urine Creatinine Urine Total Protein Vancomycin Trough Rheumatoid Factor Complement C4 Miscellaneous Test Crossmatch 10/15/16 10/15/16 10/16/16 Unknown Unknown 00:02 WBC 23.4 H RBC 2.78 L Hgb 8.5 L Hct 25.7 L MCV MCH MCHC RDW 18.7 H Plt Count Lymph % (Auto) [place] % (Auto) Lymph # [place] # Seg Neutrophils % Seg Neuts % (Manual) Lymphocytes % (Manual) Monocytes % (Manual) Eosinophils % (Manual) Basophils % (Manual) Nucleated RBC % Seg Neutrophils # Seg Neutrophils # Man Lymphocytes # (Manual) Monocytes # (Manual) Eosinophils # (Manual) PT INR Fibrinogen dRVVT Confirm Interp Factor V Activity POC ABG pH POC ABG pCO2 POC ABG pO2 Sodium Potassium Chloride Carbon Dioxide BUN 73 H Creatinine 2.3 H Glucose 120 H POC Glucose 137 H Lactic Acid Calcium Phosphorus Magnesium Direct Bilirubin ALT Alkaline Phosphatase Troponin T C-Reactive Protein Total Protein Albumin Triglycerides Cholesterol LDL Cholesterol Direct HDL Cholesterol Urine WBC (Auto) Urine Creatinine Urine Total Protein Vancomycin Trough Rheumatoid Factor Complement C4 Miscellaneous Test Crossmatch 10/16/16 10/16/16 10/16/16 05:44 06:25 06:25 WBC 22.5 H RBC 2.76 L Hgb 8.3 L Hct 25.2 L MCV MCH MCHC RDW 18.3 H Plt Count Lymph % (Auto) [place] % (Auto) Lymph # [place] # Seg Neutrophils % Seg Neuts % (Manual) Lymphocytes % (Manual) Monocytes % (Manual) Eosinophils % (Manual) Basophils % (Manual) Nucleated RBC % Seg Neutrophils # Seg Neutrophils # Man Lymphocytes # (Manual) Monocytes # (Manual) Eosinophils # (Manual) PT INR Fibrinogen dRVVT Confirm Interp Factor V Activity POC ABG pH POC ABG pCO2 POC ABG pO2 Sodium Potassium Chloride Carbon Dioxide BUN 92 H Creatinine 3.0 H Glucose 138 H POC Glucose 110 H Lactic Acid Calcium Phosphorus Magnesium Direct Bilirubin ALT Alkaline Phosphatase Troponin T C-Reactive Protein Total Protein Albumin Triglycerides Cholesterol LDL Cholesterol Direct HDL Cholesterol Urine WBC (Auto) Urine Creatinine Urine Total Protein Vancomycin Trough Rheumatoid Factor Complement C4 Miscellaneous Test Crossmatch 10/16/16 10/16/16 10/16/16 11:27 11:48 17:36 WBC RBC Hgb Hct MCV MCH MCHC RDW Plt Count Lymph % (Auto) [place] % (Auto) Lymph # [place] # Seg Neutrophils % Seg Neuts % (Manual) Lymphocytes % (Manual) Monocytes % (Manual) Eosinophils % (Manual) Basophils % (Manual) Nucleated RBC % Seg Neutrophils # Seg Neutrophils # Man Lymphocytes # (Manual) Monocytes # (Manual) Eosinophils # (Manual) PT INR Fibrinogen dRVVT Confirm Interp Factor V Activity POC ABG pH 7.582 H POC ABG pCO2 27.4 L POC ABG pO2 110 H Sodium Potassium Chloride Carbon Dioxide BUN Creatinine Glucose POC Glucose 121 H 133 H Lactic Acid Calcium Phosphorus Magnesium Direct Bilirubin ALT Alkaline Phosphatase Troponin T C-Reactive Protein Total Protein Albumin Triglycerides Cholesterol LDL Cholesterol Direct HDL Cholesterol Urine WBC (Auto) Urine Creatinine Urine Total Protein Vancomycin Trough Rheumatoid Factor Complement C4 Miscellaneous Test Crossmatch 10/16/16 10/17/16 10/17/16 20:48 04:24 04:24 WBC 21.4 H RBC 2.72 L Hgb 8.0 L Hct 25.2 L MCV MCH MCHC RDW 18.0 H Plt Count Lymph % (Auto) [place] % (Auto) Lymph # [place] # Seg Neutrophils % Seg Neuts % (Manual) Lymphocytes % (Manual) Monocytes % (Manual) Eosinophils % (Manual) Basophils % (Manual) Nucleated RBC % Seg Neutrophils # Seg Neutrophils # Man Lymphocytes # (Manual) Monocytes # (Manual) Eosinophils # (Manual) PT INR Fibrinogen dRVVT Confirm Interp Factor V Activity POC ABG pH 7.561 H POC ABG pCO2 24.4 L POC ABG pO2 77 L Sodium 148 H Potassium Chloride Carbon Dioxide BUN 104 H Creatinine 3.0 H Glucose 149 H POC Glucose Lactic Acid Calcium Phosphorus Magnesium Direct Bilirubin ALT Alkaline Phosphatase 138 H Troponin T C-Reactive Protein Total Protein 6.2 L Albumin 1.5 L Triglycerides Cholesterol LDL Cholesterol Direct HDL Cholesterol Urine WBC (Auto) Urine Creatinine Urine Total Protein Vancomycin Trough Rheumatoid Factor Complement C4 Miscellaneous Test Crossmatch 10/17/16 06:02 WBC RBC Hgb Hct MCV MCH MCHC RDW Plt Count Lymph % (Auto) [place] % (Auto) Lymph # [place] # Seg Neutrophils % Seg Neuts % (Manual) Lymphocytes % (Manual) Monocytes % (Manual) Eosinophils % (Manual) Basophils % (Manual) Nucleated RBC % Seg Neutrophils # Seg Neutrophils # Man Lymphocytes # (Manual) Monocytes # (Manual) Eosinophils # (Manual) PT INR Fibrinogen dRVVT Confirm Interp Factor V Activity POC ABG pH POC ABG pCO2 POC ABG pO2 Sodium Potassium Chloride Carbon Dioxide BUN Creatinine Glucose POC Glucose 170 H Lactic Acid Calcium Phosphorus Magnesium Direct Bilirubin ALT Alkaline Phosphatase Troponin T C-Reactive Protein Total Protein Albumin Triglycerides Cholesterol LDL Cholesterol Direct HDL Cholesterol Urine WBC (Auto) Urine Creatinine Urine Total Protein Vancomycin Trough Rheumatoid Factor Complement C4 Miscellaneous Test Crossmatch Allied health notes reviewed: RT
[2016-10-17] MEDS: MERREM 1,000 MG in NACL 0.9% 100 ML IV SCH (10:26)
--- NOTE | 2016-10-17 11:36 | Progress Note ---
Assessment and Plan Assessment: 1) Recurrent Sepsis: still leukocytosis ? unclear source - likely abdominal wall abscess at surgical site -S/p multiple episodes of sepsis - initially due to presumed aspiration pneumonia, then septic episode on 09/23 from Candidemia. Then from - peritonitis from gastric perforation +/- UTI. Current septic episode from surgical site infection. -CRP 19 --> 22 -Procalcitonin=24 --> 16 (improving) -repeat CT abdomen no leak no abscess -repeat blood cx - neg -On exam today-copious purulent drainage from right sided surg site 2) Peritonitis: from gastric perforation from dislodged PEG with significant ascites -S/P exlap, repair of gastric perforation with wedge gastrectomy, abdominal washout, drain placement on 10/05. 3) Candidemia: -Blood cultures positive for Silvia albicans on 09/23 -Blood cultures positive on 09/25 -Blood cutlures negative on 09/30 -PICC line changed on 10/03 -Source ? gastric perf (PEG placed on 09/20) +/- TPN +/- central lines -TTE 10/07 no vegetations -PICC exchanged on 10/03 -fully treated with micafungin for 14 days last day 10/13 4) CA-UTI s/p gutierrez exchanged 5) Diarrhea - ? etiology ? antibiotic-induced, not better 6) Initial presumed aspiration pneumonia 7) Presumed UTI: urine cx 09/23 multiple species 8) Respiratory failure s/p trach 9) Recent CVA-left MCA CVA 10) Uncontrolled HTN 11) Acute on CKD 12) Extensive back skin peeling ? burn from gastric secretions. Doubt allergic reaction 13) Severe anemia; ? from GI bleed Plan: -surgical evaluation of right site surgical wound with bo draining purulence -add IV vancomycin in view of surgical site infection -continue meropenem to cover peritonitis (was on zosyn before) day Thank you Dr Ribeiro for your consultation, will follow up with you. Pauline Carias MD Infectious Diseases Specialist [facility] M [phone] O [phone] Subjective Date of service: 10/17/16 Principal diagnosis: Acute resp failure on MVS; S/P Acute CVA; Acute Encephalopathy; JUANITA Interval history: Somnolent open eyes spontaneously, not following commands, on the vent via trach , no pressors. No fever last 24h and tachycardia on monitor, +oliguric. + diarrhea Microbiology: Blood cultures: 09/13 neg 8 Silvia albicans 09/25 Silvia 09/29 neg 10/07 NGTD Urine cultures: 09/10 neg 09/13 neg 8/ 10-100K mixed species 10/07 pending Respiratory cultures: 09/07 neg 09/13 neg 8 neg Wound cultures: Stool cultures: Current Antimicrobials: Meropenem 10/10 Previous Antimicrobials: Zosyn 10/07 Vancomycin PO 10/01 Metronidazole 09/25 Micafungin 09/27-10/13 Objective - Exam Narrative Exam: General appearance: alert, non verbal, on the vent via trach no following commands Eyes: anicteric sclera, moist conjunctivae; PERRLA HENT: Atraumatic; oropharynx limited; Normal external ears. +NGT with greenish secretion Neck: +trach in place; supple, no thyromegaly or lymphadenopathy Lungs: coarse BS bilateral CV: tachycardic Abdomen: Soft, non-tender, +drain with purulent drainage, + diarrhea via rectal tube leaking. +old PEG site no drainage. Right sided Surgical site with bo an copious purulent drainage Extremities: +peripheral edema no extremity lymphadenopathy Skin: Julian sub mammary ulcers, extensive skin peeling on back Psych: somnolent . Neuro: somnolent non verbal on the vent. Lines: left arm PICC placed on 10/03 - Constitutional Vitals: Vital Signs Temp Pulse Resp BP Pulse Ox 97.3 F L 124 H 31 H 154/99 99 10/17/16 08:00 10/17/16 11:00 10/17/16 11:00 10/17/16 11:00 10/17/16 11:00 Temperature -Last 24 Hours Temperature 97.3 F Temperature 98.1 F Temperature 98.1 F Temperature 97.8 F Temperature 97.8 F Temperature 98.2 F Temperature 100.4 F - Labs CBC & Chem 7: 10/17/16 04:24 10/17/16 04:24 Labs: Abnormal lab results 10/13/16 10/16/16 10/16/16 Range/Units 09:20 11:48 17:36 WBC (4.5-11.0) K/mm3 RBC (3.65-5.03) M/mm3 Hgb (10.1-14.3) gm/dl Hct (30.3-42.9) % RDW (13.2-15.2) % POC ABG pH (7.35-7.45) POC ABG pCO2 (35-45) POC ABG pO2 (80-105) Sodium (137-145) mmol/L BUN (7-17) mg/dL Creatinine (0.7-1.2) mg/dL Glucose (65-100) mg/dL POC Glucose 121 H 133 H (70-105) Alkaline Phosphatase (35-129) units/L Total Protein (6.3-8.2) g/dL Albumin (3.9-5) g/dL Miscellaneous Test Flexitest 1 H 10/16/16 10/17/16 10/17/16 Range/Units 20:48 04:24 04:24 WBC 21.4 H (4.5-11.0) K/mm3 RBC 2.72 L (3.65-5.03) M/mm3 Hgb 8.0 L (10.1-14.3) gm/dl Hct 25.2 L (30.3-42.9) % RDW 18.0 H (13.2-15.2) % POC ABG pH 7.561 H (7.35-7.45) POC ABG pCO2 24.4 L (35-45) POC ABG pO2 77 L (80-105) Sodium 148 H (137-145) mmol/L BUN 104 H (7-17) mg/dL Creatinine 3.0 H (0.7-1.2) mg/dL Glucose 149 H (65-100) mg/dL POC Glucose (70-105) Alkaline Phosphatase 138 H (35-129) units/L Total Protein 6.2 L (6.3-8.2) g/dL Albumin 1.5 L (3.9-5) g/dL Miscellaneous Test 10/17/16 Range/Units 06:02 WBC (4.5-11.0) K/mm3 RBC (3.65-5.03) M/mm3 Hgb (10.1-14.3) gm/dl Hct (30.3-42.9) % RDW (13.2-15.2) % POC ABG pH (7.35-7.45) POC ABG pCO2 (35-45) POC ABG pO2 (80-105) Sodium (137-145) mmol/L BUN (7-17) mg/dL Creatinine (0.7-1.2) mg/dL Glucose (65-100) mg/dL POC Glucose 170 H (70-105) Alkaline Phosphatase (35-129) units/L Total Protein (6.3-8.2) g/dL Albumin (3.9-5) g/dL Miscellaneous Test
[2016-10-17] MEDS ORDERED: VANCOMYCIN/NS 1 GM/250 ML 1 GM/250 ML BAG IV SCH (12:00)
[2016-10-17] MEDS ORDERED: VANCOMYCIN PHARMACY TO DOSE IV SCH ×2 (13:00→14:00)
[2016-10-17] MEDS ORDERED: VANCOMYCIN 2,000 MG in NACL 0.9% 500 ML 500 ML IV ONE (13:00)
--- NOTE | 2016-10-17 13:04 | Progress Note ---
Assessment and Plan - Patient Problems (1) Respiratory failure Current Visit: Yes Status: Acute Qualifiers: Chronicity: C Respiratory failure complication: R Plan to address problem: Continue supportive management. (2) Atrial fibrillation Current Visit: Yes Status: Acute Qualifiers: Atrial fibrillation type: A Plan to address problem: Intravenous Lopressor for management of paroxysmal atrial fibrillation. Subjective Date of service: 10/17/16 Principal diagnosis: Acute resp failure on MVS; S/P Acute CVA; Acute Encephalopathy; JUANITA Interval history: Patient is sedated on the vent. Today, her telemetry shows a return to atrial fibrillation with ventricular rate 120s. Objective Vital Signs Temp Pulse Pulse Resp Resp BP Pulse Ox 10/17/16 12:08 117 H 149/91 99 10/17/16 12:00 97.4 F L 10/17/16 11:00 124 H 31 H 154/99 99 10/17/16 10:01 130 H 131/86 10/17/16 10:00 130 H 29 H 28 H 131/86 100 10/17/16 09:01 130 H 27 H 162/93 99 10/17/16 08:01 118 H 26 H 161/100 99 10/17/16 08:00 97.3 F L 125 H 28 H 100 10/17/16 07:28 112 H 149/95 99 10/17/16 07:00 137 H 24 149/95 99 10/17/16 06:14 136 H 140/82 10/17/16 06:00 140 H 31 H 149/82 99 10/17/16 05:31 132 H 20 155/84 99 10/17/16 05:00 127 H 34 H 155/84 99 10/17/16 04:31 133 H 27 H 155/92 99 10/17/16 04:21 145 H 155/92 98 10/17/16 04:00 98.1 F 131 H 28 H 155/92 99 10/17/16 03:31 129 H 27 H 175/90 99 10/17/16 03:00 125 H 28 H 151/85 99 10/17/16 02:31 128 H 30 H 99 10/17/16 02:00 112 H 24 158/95 99 10/17/16 01:58 10/17/16 01:56 137 H 158/95 10/17/16 01:30 145 H 24 158/95 99 10/17/16 01:00 127 H 26 H 158/95 99 10/17/16 00:37 98.1 F 10/17/16 00:30 141 H 28 H 142/92 99 10/17/16 00:00 97.8 F 129 H 29 H 142/92 99 10/16/16 23:30 140 H 31 H 139/88 99 10/16/16 23:00 134 H 28 H 139/88 99 10/16/16 22:30 128 H 35 H 177/105 99 10/16/16 22:16 121 H 32 H 177/105 100 10/16/16 22:10 138 H 177/105 10/16/16 22:09 138 H 177/105 10/16/16 22:00 127 H 21 24 177/105 100 10/16/16 21:30 129 H 25 H 154/101 100 10/16/16 21:00 128 H 28 H 154/101 100 10/16/16 20:30 134 H 25 H 153/90 98 10/16/16 20:29 130 H 161/104 98 10/16/16 20:00 119 H 27 H 161/104 98 10/16/16 19:40 97.8 F 10/16/16 19:30 109 H 23 153/90 96 10/16/16 19:00 116 H 29 H 153/90 97 10/16/16 18:30 114 H 29 H 156/114 98 10/16/16 18:13 127 H 156/114 10/16/16 18:12 116 H 156/114 10/16/16 18:00 123 H 30 H 156/114 98 10/16/16 17:30 120 H 28 H 173/105 98 10/16/16 17:00 119 H 28 H 173/105 100 10/16/16 16:40 111 H 140/90 99 10/16/16 16:30 123 H 31 H 140/90 98 10/16/16 16:00 98.2 F 122 H 29 H 140/90 98 10/16/16 15:30 122 H 26 H 155/94 97 10/16/16 15:22 10/16/16 15:00 124 H 26 H 155/94 96 10/16/16 14:30 117 H 35 H 102/58 95 10/16/16 14:00 126 H 25 H 138/77 98 10/16/16 13:30 123 H 18 138/77 98 Pulse Ox 10/17/16 12:08 10/17/16 12:00 10/17/16 11:00 10/17/16 10:01 10/17/16 10:00 10/17/16 09:01 10/17/16 08:01 10/17/16 08:00 10/17/16 07:28 10/17/16 07:00 10/17/16 06:14 10/17/16 06:00 10/17/16 05:31 10/17/16 05:00 10/17/16 04:31 10/17/16 04:21 10/17/16 04:00 10/17/16 03:31 10/17/16 03:00 10/17/16 02:31 10/17/16 02:00 10/17/16 01:58 100 10/17/16 01:56 10/17/16 01:30 10/17/16 01:00 10/17/16 00:37 10/17/16 00:30 10/17/16 00:00 10/16/16 23:30 10/16/16 23:00 10/16/16 22:30 10/16/16 22:16 10/16/16 22:10 10/16/16 22:09 10/16/16 22:00 10/16/16 21:30 10/16/16 21:00 10/16/16 20:30 10/16/16 20:29 10/16/16 20:00 10/16/16 19:40 10/16/16 19:30 10/16/16 19:00 10/16/16 18:30 10/16/16 18:13 10/16/16 18:12 10/16/16 18:00 10/16/16 17:30 10/16/16 17:00 10/16/16 16:40 10/16/16 16:30 10/16/16 16:00 10/16/16 15:30 10/16/16 15:22 97 10/16/16 15:00 10/16/16 14:30 10/16/16 14:00 10/16/16 13:30 - Physical Examination General: Other (ventilated via trach) HEENT: Positive: PERRL Neck: Positive: neck supple Cardiac: Positive: irregularly irregular Lungs: Positive: Decreased Breath Sounds Neuro: Positive: Weakness Abdomen: Positive: Soft, Active Bowel Sounds Skin: Positive: Clear Extremities: Absent: edema - Labs and Meds Cardiac Enzymes 10/17/16 Range/Units 04:24 AST 39 (5-40) units/L CBC 10/17/16 Range/Units 04:24 WBC 21.4 H (4.5-11.0) K/mm3 RBC 2.72 L (3.65-5.03) M/mm3 Hgb 8.0 L (10.1-14.3) gm/dl Hct 25.2 L (30.3-42.9) % Plt Count 240 (140-440) K/mm3 Comprehensive Metabolic Panel 10/17/16 Range/Units 04:24 Sodium 148 H (137-145) mmol/L Potassium 4.1 (3.6-5.0) mmol/L Chloride 106.2 (98-107) mmol/L Carbon Dioxide 22 (22-30) mmol/L BUN 104 H (7-17) mg/dL Creatinine 3.0 H (0.7-1.2) mg/dL Glucose 149 H (65-100) mg/dL Calcium 9.9 (8.4-10.2) mg/dL AST 39 (5-40) units/L ALT 13 (7-56) units/L Alkaline Phosphatase 138 H (35-129) units/L Total Protein 6.2 L (6.3-8.2) g/dL Albumin 1.5 L (3.9-5) g/dL - Imaging and Cardiology EKG: image reviewed - Allied health notes Allied health notes reviewed: RT
[2016-10-17] MEDS ORDERED: VANCOMYCIN 1,500 MG in NACL 0.9% 500 ML 500 ML IV ONE (14:00)
--- NOTE | 2016-10-17 15:20 | Progress Note ---
Subjective Date of service: 10/17/16 Narrative: Seems awake but not responsive Sinus Tach +. Trach to vent Abd - obese, NGT in place, rectal pouch + watery stools,Rt flank drain minimal output , non bilious, purulent on TPN Ct 10/13 - reviewed - free fluid in pelvis, not locluated , Intra bd drain in place Plan- Continue present Rx, will get contrast study thru NGT in afew days to ascertain full closure of gastric repair Objective Vital Signs - 12hr 10/17/16 10/17/16 10/17/16 03:31 04:00 04:21 Temperature 98.1 F Pulse Rate 129 H 131 H 145 H Pulse Rate [ From Monitor] Respiratory 27 H 28 H Rate Respiratory Rate [ Generalized] Blood Pressure 175/90 155/92 155/92 O2 Sat by Pulse 99 99 98 Oximetry 10/17/16 10/17/16 10/17/16 04:31 05:00 05:31 Temperature Pulse Rate 133 H 127 H 132 H Pulse Rate [ From Monitor] Respiratory 27 H 34 H 20 Rate Respiratory Rate [ Generalized] Blood Pressure 155/92 155/84 155/84 O2 Sat by Pulse 99 99 99 Oximetry 10/17/16 10/17/16 10/17/16 06:00 06:14 07:00 Temperature Pulse Rate 140 H 136 H 137 H Pulse Rate [ From Monitor] Respiratory 31 H 24 Rate Respiratory Rate [ Generalized] Blood Pressure 149/82 140/82 149/95 O2 Sat by Pulse 99 99 Oximetry 10/17/16 10/17/16 10/17/16 07:28 08:00 08:01 Temperature 97.3 F L Pulse Rate 112 H 118 H Pulse Rate [ 125 H From Monitor] Respiratory 28 H 26 H Rate Respiratory Rate [ Generalized] Blood Pressure 149/95 161/100 O2 Sat by Pulse 99 100 99 Oximetry 10/17/16 10/17/16 10/17/16 09:01 10:00 10:01 Temperature Pulse Rate 130 H 130 H 130 H Pulse Rate [ From Monitor] Respiratory 27 H 29 H Rate Respiratory 28 H Rate [ Generalized] Blood Pressure 162/93 131/86 131/86 O2 Sat by Pulse 99 100 Oximetry 10/17/16 10/17/16 10/17/16 11:00 12:00 12:08 Temperature 97.4 F L Pulse Rate 124 H 131 H 117 H Pulse Rate [ 122 H From Monitor] Respiratory 31 H 32 H Rate Respiratory Rate [ Generalized] Blood Pressure 154/99 149/91 149/91 O2 Sat by Pulse 99 99 99 Oximetry 10/17/16 10/17/16 10/17/16 13:00 13:36 14:41 Temperature Pulse Rate 124 H 126 H 128 H Pulse Rate [ From Monitor] Respiratory 25 H Rate Respiratory Rate [ Generalized] Blood Pressure 145/95 145/95 139/88 O2 Sat by Pulse 99 99 Oximetry - Labs 10/17/16 04:24 10/17/16 04:24 Diabetes panel 10/17/16 Range/Units 04:24 Sodium 148 H (137-145) mmol/L Potassium 4.1 (3.6-5.0) mmol/L Chloride 106.2 (98-107) mmol/L Carbon Dioxide 22 (22-30) mmol/L BUN 104 H (7-17) mg/dL Creatinine 3.0 H (0.7-1.2) mg/dL Glucose 149 H (65-100) mg/dL Calcium 9.9 (8.4-10.2) mg/dL AST 39 (5-40) units/L ALT 13 (7-56) units/L Alkaline Phosphatase 138 H (35-129) units/L Total Protein 6.2 L (6.3-8.2) g/dL Albumin 1.5 L (3.9-5) g/dL Calcium panel 10/17/16 Range/Units 04:24 Calcium 9.9 (8.4-10.2) mg/dL Phosphorus 4.10 (2.5-4.5) mg/dL Albumin 1.5 L (3.9-5) g/dL Pituitary panel 10/17/16 Range/Units 04:24 Sodium 148 H (137-145) mmol/L Potassium 4.1 (3.6-5.0) mmol/L Chloride 106.2 (98-107) mmol/L Carbon Dioxide 22 (22-30) mmol/L BUN 104 H (7-17) mg/dL Creatinine 3.0 H (0.7-1.2) mg/dL Glucose 149 H (65-100) mg/dL Calcium 9.9 (8.4-10.2) mg/dL Adrenal panel 10/17/16 Range/Units 04:24 Sodium 148 H (137-145) mmol/L Potassium 4.1 (3.6-5.0) mmol/L Chloride 106.2 (98-107) mmol/L Carbon Dioxide 22 (22-30) mmol/L BUN 104 H (7-17) mg/dL Creatinine 3.0 H (0.7-1.2) mg/dL Glucose 149 H (65-100) mg/dL Calcium 9.9 (8.4-10.2) mg/dL Total Bilirubin 0.30 (0.1-1.2) mg/dL AST 39 (5-40) units/L ALT 13 (7-56) units/L Alkaline Phosphatase 138 H (35-129) units/L Total Protein 6.2 L (6.3-8.2) g/dL Albumin 1.5 L (3.9-5) g/dL
[2016-10-17] MEDS ORDERED: INTRALIPID 20% 250 ML IV SCH (20:00)
[2016-10-17] MEDS ORDERED: TPN ADULT 2,016 ML IV SCH (20:00)
[2016-10-18 04:37] LABS: Hematocrit 22.9 % (30.3-42.9); Hemoglobin 7.4 gm/dl (10.1-14.3); Mean Corpuscular HGB Conc 32 % (30-34); Mean Corpuscular Hemoglobin 30 pg (28-32); Mean Corpuscular Volume 93 fl (79-97); Platelet Count 274 K/mm3 (140-440); Red Blood Count 2.47 M/mm3 (3.65-5.03); Red Cell Distribution Width 17.5 % (13.2-15.2)
[2016-10-18 05:01] LABS: Calcium 9.8 mg/dL (8.4-10.2)
[2016-10-18 05:07] LABS: BUN/Creatinine Ratio 36.56
[2016-10-18] MEDS: LOPRESSOR IV SCH ×5 (06:16→18:22)
[2016-10-18] MEDS: HumuLIN R SUB-Q SCH ×3 (06:24→18:23)
--- NOTE | 2016-10-18 08:44 | Progress Note ---
Assessment and Plan Assessment and plan: Assessment and plan: Acute hypoxic respiratory failure On mechanical ventilation Status post trach Acute massive left MCA CVA Status post TPA Aspirin/statin Supportive care Toxic metabolic Encephalopathy Multifactorial. Still not following commands Dislodged PEG Status post wedge gastrectomy, repair of gastric perforation, abdominal washout and drain placement Surgery following Severe sepsis with septic shock UTI/candidemia/peritonitis due to gastric perforation from dislodged PEG Off pressors She is now on Meropenem as per ID recommendation Candidemia. completed micofungin Peritonitis Toxic metabolic encephalopathy,unresponsive. neurology following Acute blood loss anemia requiring multiple PRBC transfusions. Hemoglobin 7.4 today . Repeat stool occult blood positive. GI Physician was following, now signed off. Conservative management Monitor H&H closely, Fever,recurrent due to sepsis. CT Abdomen negative for sepsis Acute on chronic kidney disease, On dialysis prn managed by Nephrology . Creatinine 3.2 today Paroxysmal A. fib Status post failed conversion on 09/25 Continue Amiodarone drip No anticoagulation due to anemia/thrombocytopenia, massive stroke Hypernatremia Diabetes mellitus type 2 Insulin/SSI Leukocytosis . WBC 20.7.4 today Severe protein caloric malnutrition Currently on TPN Extensive back skin peeling, much improved. Thrombocytopenia. Now resolved DVT prophylaxis SCDs, no pharmacological agent given anemia requiring multiple PRBC transfusions , thrombocytopenia, massive stroke Hyperkalemia. Resolved after dialysis Full code status Prognosis guarded Had a family meeting Monday10/10/16 in which I discussed plan. Present at meeting was the Risk management staff, newspaper manager and myself, patient's son and patients' sister. Had another family meeting Monday10/14/16 at 10:00am with Dr. Nazario, myself, Molding Technician and patient's daughter. We discussed diagnosis,plan and prognosis, and all her questions were answered. Dispo. Her prognosis is guarded. She will need LTAC placement History Interval history: Patient with multi-organ failure, Still having fever. Temp 101.5 this morning Still does not follow commands Hospitalist Physical - Physical exam Narrative exam: Gen appearance: Trach, not in acute distress HEENT: Atraumatic Neck: Tracheostomy Lungs: Coarse breath sounds, no crackles or wheezes Heart :S1 and S2 irregular, no murmurs, rubs or gallop Abdomen: Soft, surgical drain, dressing over upper abdomen, bowel sounds present ,rectal tube Extremities : bilateral edema, upper and lower ext Neuro:Unresponsive, Does not follow commands - Constitutional Vitals: Temp Pulse Resp BP Pulse Ox 101.5 F H 114 H 22 173/112 99 10/18/16 03:28 10/18/16 08:05 10/18/16 07:00 10/18/16 08:05 10/18/16 08:06 General appearance: Present: mild distress, obese, other (on vent, non- responsive) Results - Labs CBC & Chem 7: 10/18/16 04:00 10/18/16 04:00 Labs: Laboratory Last Values WBC 20.7 K/mm3 (4.5-11.0) H 10/18/16 04:00 RBC 2.47 M/mm3 (3.65-5.03) L 10/18/16 04:00 Hgb 7.4 gm/dl (10.1-14.3) L 10/18/16 04:00 Hct 22.9 % (30.3-42.9) L 10/18/16 04:00 MCV 93 fl (79-97) 10/18/16 04:00 MCH 30 pg (28-32) 10/18/16 04:00 MCHC 32 % (30-34) 10/18/16 04:00 RDW 17.5 % (13.2-15.2) H 10/18/16 04:00 Plt Count 274 K/mm3 (140-440) 10/18/16 04:00 Lymph % (Auto) 6.9 % (13.4-35.0) L 09/21/16 07:45 [place] % (Auto) 0.5 % (0.0-7.3) 10/03/16 05:10 Eos % (Auto) 1.3 % (0.0-4.3) 10/03/16 05:10 Baso % (Auto) 0.2 % (0.0-1.8) 09/21/16 07:45 Lymph # 0.9 K/mm3 (1.2-5.4) L 09/21/16 07:45 [place] # 0.1 K/mm3 (0.0-0.8) 10/03/16 05:10 Eos # 0.2 K/mm3 (0.0-0.4) 10/03/16 05:10 Baso # 0.0 K/mm3 (0.0-0.1) 10/03/16 05:10 Add Manual Diff Complete 10/10/16 05:00 Total Counted 100 10/10/16 05:00 Seg Neutrophils % Chief [employer] Guide 10/03/16 05:10 Seg Neuts % (Manual) 61.0 % (40.0-70.0) 10/10/16 05:00 Band Neutrophils % 24.0 % 10/10/16 05:00 Lymphocytes % (Manual) 10.0 % (13.4-35.0) L 10/10/16 05:00 Reactive Lymphs % (Man) 0 % 10/10/16 05:00 Monocytes % (Manual) 2.0 % (0.0-7.3) 10/10/16 05:00 Eosinophils % (Manual) 0 % (0.0-4.3) 10/10/16 05:00 Basophils % (Manual) 0 % (0.0-1.8) 10/10/16 05:00 Metamyelocytes % 3.0 % 10/10/16 05:00 Myelocytes % 0 % 10/10/16 05:00 Promyelocytes % 0 % 10/10/16 05:00 Blast Cells % 0 % 10/10/16 05:00 Nucleated RBC % 4.0 % (0.0-0.9) H 10/10/16 05:00 Seg Neutrophils # 11.9 K/mm3 (1.8-7.7) H 10/03/16 05:10 Seg Neutrophils # Man 11.3 K/mm3 (1.8-7.7) H 10/10/16 05:00 Band Neutrophils # 4.4 K/mm3 10/10/16 05:00 Lymphocytes # (Manual) 1.9 K/mm3 (1.2-5.4) 10/10/16 05:00 Abs React Lymphs (Man) 0.0 K/mm3 10/10/16 05:00 Monocytes # (Manual) 0.4 K/mm3 (0.0-0.8) 10/10/16 05:00 Eosinophils # (Manual) 0.0 K/mm3 (0.0-0.4) 10/10/16 05:00 Basophils # (Manual) 0.0 K/mm3 (0.0-0.1) 10/10/16 05:00 Metamyelocytes # 0.6 K/mm3 10/10/16 05:00 Myelocytes # 0.0 K/mm3 10/10/16 05:00 Promyelocytes # 0.0 K/mm3 10/10/16 05:00 Blast Cells # 0.0 K/mm3 10/10/16 05:00 Pathologist Review 09/13/16 04:00 WBC Morphology Not Reportable 10/10/16 05:00 Hypersegmented Neuts Not Reportable 10/10/16 05:00 Hyposegmented Neuts Not Reportable 10/10/16 05:00 Hypogranular Neuts Not Reportable 10/10/16 05:00 Smudge Cells Not Reportable 10/10/16 05:00 Toxic Granulation Not Reportable 10/10/16 05:00 Toxic Vacuolation Not Reportable 10/10/16 05:00 Dohle Bodies Not Reportable 10/10/16 05:00 Pelger-Huet Anomaly Not Reportable 10/10/16 05:00 Jasmina Rods Not Reportable 10/10/16 05:00 Platelet Estimate Consistent w auto 10/10/16 05:00 Clumped Platelets Not Reportable 10/10/16 05:00 Plt Clumps, EDTA Not Reportable 10/10/16 05:00 Large Platelets Not Reportable 10/10/16 05:00 Giant Platelets Not Reportable 10/10/16 05:00 Platelet Satelliting Not Reportable 10/10/16 05:00 Plt Morphology Comment Not Reportable 10/10/16 05:00 RBC Morphology Not Reportable 10/10/16 05:00 Dimorphic RBCs Not Reportable 10/10/16 05:00 Polychromasia Rare 10/10/16 05:00 Hypochromasia 1+ 10/10/16 05:00 Poikilocytosis Not Reportable 10/10/16 05:00 Anisocytosis 1+ 10/10/16 05:00 Microcytosis Not Reportable 10/10/16 05:00 Macrocytosis 1+ 10/10/16 05:00 Spherocytes Not Reportable 10/10/16 05:00 Pappenheimer Bodies Not Reportable 10/10/16 05:00 Sickle Cells Not Reportable 10/10/16 05:00 Target Cells Not Reportable 10/10/16 05:00 Tear Drop Cells Not Reportable 10/10/16 05:00 Ovalocytes Not Reportable 10/10/16 05:00 Stomatocytes Few 10/06/16 03:50 Helmet Cells Not Reportable 10/10/16 05:00 Monet-Hughes Bodies Not Reportable 10/10/16 05:00 Wentworth Rings Not Reportable 10/10/16 05:00 Hopkins Cells Not Reportable 10/10/16 05:00 Bite Cells Not Reportable 10/10/16 05:00 Crenated Cell Not Reportable 10/10/16 05:00 Elliptocytes Not Reportable 10/10/16 05:00 Acanthocytes (Spur) Not Reportable 10/10/16 05:00 Rouleaux Not Reportable 10/10/16 05:00 Hemoglobin C Crystals Not Reportable 10/10/16 05:00 Schistocytes Not Reportable 10/10/16 05:00 Malaria parasites Not Reportable 10/10/16 05:00 ESR > 140.0 mm/Hr (0-20) 09/08/16 11:48 Jun Bodies Not Reportable 10/10/16 05:00 Hem Pathologist Commnt No 10/10/16 05:00 PT 19.0 Sec. (12.2-14.9) H 10/09/16 03:45 INR 1.51 (0.87-1.13) H 10/09/16 03:45 APTT 33.0 Sec. (24.2-36.6) 10/09/16 03:45 Thrombin Time 16.8 Sec. (15.1-19.6) 09/03/16 00:10 Fibrinogen 750 mg/dl (211-480) H 09/08/16 11:48 Lupus Anticoagulant see below 09/12/16 09:59 LA PTT Baseline See scanned report 09/12/16 09:59 dRVVT Confirm Interp Positive (Negative) H 09/12/16 09:59 dRVVT Screen 50:50 See scanned report 09/12/16 09:59 dRVVT Mix Interpret See scanned report 09/12/16 09:59 Protein C Antigen 122 % (70-140) 09/08/16 15:35 Free Protein S 97 % normal (50-147) 09/08/16 15:35 Total Protein S 109 % (70-140) 09/08/16 15:35 Antithrombin III Ag 100 % (80-120) 09/08/16 15:35 Heparin Anti-Xa, Unfract Negative (Negative) 09/29/16 13:35 Factor V Activity 182 % (65-150) H 09/08/16 15:35 POC ABG pH 7.561 (7.35-7.45) H 10/16/16 20:48 POC ABG pCO2 24.4 (35-45) L 10/16/16 20:48 POC ABG pO2 77 (80-105) L 10/16/16 20:48 POC ABG HCO3 21.9 10/16/16 20:48 POC ABG Total CO2 23 10/16/16 20:48 POC ABG O2 Sat 97 10/16/16 20:48 POC ABG Base Excess 0 10/16/16 20:48 FiO2 25 % 10/16/16 20:48 Sodium 149 mmol/L (137-145) H 10/18/16 04:00 Potassium 4.2 mmol/L (3.6-5.0) 10/18/16 04:00 Chloride 107.9 mmol/L (98-107) H 10/18/16 04:00 Carbon Dioxide 20 mmol/L (22-30) L 10/18/16 04:00 Anion Gap 25 mmol/L 10/18/16 04:00 BUN 117 mg/dL (7-17) H 10/18/16 04:00 Creatinine 3.2 mg/dL (0.7-1.2) H 10/18/16 04:00 Estimated GFR 19 ml/min 10/18/16 04:00 BUN/Creatinine Ratio 36.56 % 10/18/16 04:00 Glucose 119 mg/dL (65-100) H 10/18/16 04:00 POC Glucose 119 (70-105) H 10/18/16 05:23 Osmolality 351 Mosm/kg 09/16/16 11:47 Lactic Acid 4.50 mmol/L (0.7-2.0) H* 09/28/16 07:25 Calcium 9.8 mg/dL (8.4-10.2) 10/18/16 04:00 Phosphorus 4.40 mg/dL (2.5-4.5) 10/18/16 04:00 Magnesium 2.00 mg/dL (1.7-2.3) 10/18/16 04:00 Total Bilirubin 0.30 mg/dL (0.1-1.2) 10/17/16 04:24 Direct Bilirubin 0.3 mg/dL (0-0.2) H 10/10/16 05:00 Indirect Bilirubin 0.1 mg/dL 10/10/16 05:00 AST 39 units/L (5-40) 10/17/16 04:24 ALT 13 units/L (7-56) 10/17/16 04:24 Alkaline Phosphatase 138 units/L (35-129) H 10/17/16 04:24 Ammonia 27.0 umol/L (25-60) 09/07/16 08:37 Total Creatine Kinase 121 units/L (30-135) 09/29/16 20:12 CK-MB (CK-2) < 1.0 ng/mL (0.0-4.0) 09/29/16 20:12 CK-MB (CK-2) Rel Index 0.8 (0-4) 09/29/16 20:12 Troponin T 0.204 ng/mL (0.00-0.029) H* 09/29/16 20:12 C-Reactive Protein 15.80 mg/dL (0.00-1.30) H 10/11/16 04:15 Total Protein 6.2 g/dL (6.3-8.2) L 10/17/16 04:24 Albumin 1.5 g/dL (3.9-5) L 10/17/16 04:24 Albumin/Globulin Ratio 0.3 % 10/17/16 04:24 Triglycerides 137 mg/dL (2-149) 09/29/16 20:12 Cholesterol 31 mg/dL (50-199) L 09/29/16 20:12 LDL Cholesterol Direct 4 mg/dL (50-130) L 09/29/16 20:12 HDL Cholesterol 3 mg/dL (40-59) L 09/29/16 20:12 Cholesterol/HDL Ratio 10.33 % 09/29/16 20:12 Angiotensin Convert Enz See scanned report 09/08/16 11:48 Renin 0.99 ng/mL/h (0.25-5.82) 10/07/16 10:56 Aldosterone <1 ng/dL () 10/07/16 10:56 Aldosterone/Renin Dir see below 10/07/16 10:56 Serotonin Release Assay See scanned report 09/29/16 13:35 TSH 1.010 mlU/mL (0.270-4.200) 09/07/16 08:37 HCG, Qual Negative (Negative) 09/03/16 00:10 Urine Color [place] (Yellow) 10/07/16 18:30 Urine Turbidity Turbid (Clear) 10/07/16 18:30 Urine pH 7.0 (5.0-7.0) 10/07/16 18:30 Ur Specific [place] 1.012 (1.003-1.030) 10/07/16 18:30 Urine Protein 100 mg/dl mg/dL (Negative) 10/07/16 18:30 Urine Glucose (UA) Neg mg/dL (Negative) 10/07/16 18:30 Urine Ketones Neg mg/dL (Negative) 10/07/16 18:30 Urine Blood Lg (Negative) 10/07/16 18:30 Urine Nitrite Neg (Negative) 10/07/16 18:30 Urine Bilirubin Neg (Negative) 10/07/16 18:30 Urine Urobilinogen < 2.0 mg/dL (<2.0) 10/07/16 18:30 Ur Leukocyte Esterase Lg (Negative) 10/07/16 18:30 Urine WBC (Auto) > 182.0 /HPF (0.0-6.0) H 10/07/16 18:30 Urine RBC (Auto) > 182.0 /HPF (0.0-6.0) 10/07/16 18:30 U Epithel Cells (Auto) 1.0 /HPF (0-13.0) 10/07/16 18:30 Urine Bacteria (Auto) 3+ /HPF (Negative) 10/07/16 18:30 Urine WBC Clumps 2+ /HPF 09/07/16 02:47 Hyaline Casts 4 /LPF 09/07/16 02:47 Urine Mucus Few /HPF 10/07/16 18:30 Urine Yeast (Budding) 3+ /HPF 10/07/16 18:30 Urine Eosinophils None seen (None Seen) 09/07/16 16:00 Urine Total Volume 1350 09/21/16 12:00 Urine Creatinine 54.8 mg/dL (0.1-20.0) H 09/21/16 12:00 Height (in) 67.0 inches 09/21/16 12:00 Weight (lb) 92.0 lbs 09/21/16 12:00 Creatinine Clearance 15 09/21/16 12:00 Urine Sodium 36 mEq/L 09/16/16 19:19 Urine Total Protein 16 mg/dL (5-11.8) H 09/16/16 19:19 Vancomycin Trough 2.3 ug/mL (5.0-20.0) L 09/21/16 13:00 Random Vancomycin 2.3 ug/mL (0-40.0) 09/09/16 03:00 Urine Opiates Screen Presumptive negative 09/03/16 15:11 Urine Methadone Screen Presumptive positive 09/03/16 15:11 Ur Barbiturates Screen Presumptive positive 09/03/16 15:11 Ur Phencyclidine Scrn Presumptive negative 09/03/16 15:11 Ur Amphetamines Screen Presumptive negative 09/03/16 15:11 U Benzodiazepines Scrn Presumptive negative 09/03/16 15:11 Urine Cocaine Screen Presumptive negative 09/03/16 15:11 U Marijuana (THC) Screen Presumptive positive 09/03/16 15:11 Drugs of Abuse Note Disclamer 09/03/16 15:11 Rheumatoid Factor 24 IU/ml (0-13) H 09/08/16 11:48 SAHIL Screen Negative (Negative) 09/07/16 09:20 Proteinase 3 (PR3) Ab <1.0 AI (<1.0) 09/07/16 09:20 Myeloperoxidase Ab <1.0 AI (<1.0) 09/07/16 09:20 Sjogren's Antibody <1.0 AI (<1.0) 09/08/16 15:35 Scl-70 Scleroderma Ab <1.0 AI (<1.0) 09/08/16 15:35 Centromere B Antibody <1.0 AI (<1.0) 09/08/16 12:02 Heparin-induced Plt Ab Negative (Negative) 09/29/16 13:35 UF Heparin High Dose 11 % Release 09/29/16 13:35 SUDHIR UFH Low Dose 0.1 6 % Release 09/29/16 13:35 SUDHIR UFH Low Dose 0.5 8 % Release 09/29/16 13:35 Cardiolipid IgG Ab <14 GPL (<=14) 09/12/16 09:59 Cardiolipid IgA Ab <11 APL (<=11) 09/12/16 09:59 Cardiolipid IgM Ab <12 MPL (<=12) 09/12/16 09:59 Complement C3 148 mg/dL (90-180) 09/07/16 09:20 Complement C4 58 mg/dL (16-47) H 09/07/16 09:20 RPR Nonreactive (Nonreactive) 09/08/16 11:48 Hepatitis A IgM Ab Non-reactive (NonReactive) 09/24/16 14:40 Hep Bs Antigen Non-reactive (Negative) 09/24/16 14:40 Hep B Core IgM Ab Non-reactive (NonReactive) 09/24/16 14:40 Hepatitis C Antibody Non-reactive (NonReactive) 09/24/16 14:40 HIV 1&2 Antibody Rapid Non react (Non React) 09/08/16 11:48 HIV P24 Antigen Non react (Non React) 09/08/16 11:48 Miscellaneous Test Flexitest 1 H 10/13/16 09:20 Blood Type A POSITIVE 10/09/16 07:20 Antibody Screen Negative 10/09/16 07:20 DELORIS Antibody Screen Negative 09/25/16 10:30 Crossmatch See Detail 10/09/16 07:20
[2016-10-18] MEDS: PROTONIX IV SCH (09:07)
[2016-10-18] MEDS: APRESOLINE IV PRN ×2 (09:13→20:24)
[2016-10-18] MEDS ORDERED: NACL 0.9% 100 ML IV PRN (09:16)
[2016-10-18] MEDS ORDERED: ALBURX 25% (ALBUMIN) IV PRN (09:16)
--- NOTE | 2016-10-18 10:59 | Progress Note ---
Assessment and Plan Acute hypoxic respiratory failure on mechanical ventilation s/p trach and PEG Acute left MCA CVA echocardiogram demonstrates at least moderate LVH but a normal LV systolic function, EF 50-55%. no thrombus visualized on transthoracic echocardiogram. Dislodged PEG tube s/p repair of gastric perforation with wedge gastrectomy Hypertension was hypotensive requiring pressor support Acute on chronic renal failure requiring dialysis Fungemia Diabetes mellitus Anemia requiring transfusion of PRBCs Leukocytosis Paroxysmal Afib s/p failed cardioversion on 09/25 on IV lopressor for suppression considered not a candidate for anticoagulation due to severe anemia and thrombocytopenia. Conservative cardiac management. Subjective Date of service: 10/18/16 Principal diagnosis: hematochezia Interval history: No acute cardiac events overnight. Objective Vital Signs Temp Pulse Pulse Resp BP Pulse Ox Pulse Ox 10/18/16 09:29 121 H 189/103 10/18/16 09:13 118 H 191/110 10/18/16 08:06 99 10/18/16 08:05 114 H 173/112 100 10/18/16 08:00 99.7 F H 10/18/16 07:00 114 H 22 173/112 100 10/18/16 06:17 122 H 160/99 10/18/16 06:16 123 H 181/111 10/18/16 06:00 123 H 21 181/111 100 10/18/16 05:01 188/100 99 10/18/16 04:15 119 H 171/108 100 10/18/16 04:00 127 H 21 141/88 99 10/18/16 03:28 101.5 F H 10/18/16 03:00 123 H 18 153/92 99 10/18/16 02:27 100 10/18/16 02:00 122 H 18 149/92 99 10/18/16 01:00 115 H 20 157/87 100 10/18/16 00:00 111 H 25 H 126/76 100 10/17/16 23:30 115 H 167/105 100 10/17/16 23:24 100.1 F H 10/17/16 23:23 117 H 21 167/105 99 10/17/16 23:00 115 H 18 167/105 100 10/17/16 22:00 116 H 18 160/99 99 10/17/16 21:00 112 H 19 147/88 100 10/17/16 20:00 127 H 15 142/91 100 10/17/16 19:51 99.8 F H 10/17/16 19:00 115 H 23 135/81 100 10/17/16 18:55 123 H 135/81 100 10/17/16 18:16 139 H 122/80 10/17/16 18:00 128 H 22 122/80 99 10/17/16 17:42 100 10/17/16 17:38 129 H 131/86 100 10/17/16 17:00 127 H 26 H 131/86 100 10/17/16 16:00 99.8 F H 117 H 30 H 122/81 100 10/17/16 15:00 109 H 29 H 127/85 97 10/17/16 14:41 128 H 139/88 10/17/16 14:00 132 H 29 H 139/88 99 10/17/16 13:36 126 H 145/95 99 10/17/16 13:00 124 H 25 H 145/95 99 10/17/16 12:08 117 H 149/91 99 10/17/16 12:00 97.4 F L 131 H 122 H 32 H 149/91 99 10/17/16 11:00 124 H 31 H 154/99 99 - Physical Examination General: Other (ventilated via trach) Cardiac: Positive: irregularly irregular - Labs and Meds CBC 10/18/16 Range/Units 04:00 WBC 20.7 H (4.5-11.0) K/mm3 RBC 2.47 L (3.65-5.03) M/mm3 Hgb 7.4 L (10.1-14.3) gm/dl Hct 22.9 L (30.3-42.9) % Plt Count 274 (140-440) K/mm3 Comprehensive Metabolic Panel 10/18/16 Range/Units 04:00 Sodium 149 H (137-145) mmol/L Potassium 4.2 (3.6-5.0) mmol/L Chloride 107.9 H (98-107) mmol/L Carbon Dioxide 20 L (22-30) mmol/L BUN 117 H (7-17) mg/dL Creatinine 3.2 H (0.7-1.2) mg/dL Glucose 119 H (65-100) mg/dL Calcium 9.8 (8.4-10.2) mg/dL - Imaging and Cardiology EKG: image reviewed - Allied health notes Allied health notes reviewed: RT
--- NOTE | 2016-10-18 11:39 | Progress Note ---
Assessment and Plan Assessment: 1) Recurrent Sepsis: still leukocytosis and fever ? unclear source - likely abdominal wall abscess at surgical site -S/p multiple episodes of sepsis - initially due to presumed aspiration pneumonia, then septic episode on 09/23 from Candidemia. Then from - peritonitis from gastric perforation +/- UTI. Current septic episode from surgical site infection. -CRP 19 --> 22 -Procalcitonin=24 --> 16 (improving) -repeat CT abdomen no leak no abscess -repeat blood cx - neg -On exam today-copious purulent drainage from right sided surg site 2) Peritonitis: from gastric perforation from dislodged PEG with significant ascites -S/P exlap, repair of gastric perforation with wedge gastrectomy, abdominal washout, drain placement on 10/05. 3) Candidemia: -Blood cultures positive for Silvia albicans on 09/23 -Blood cultures positive on 09/25 -Blood cutlures negative on 09/30 -PICC line changed on 10/03 -Source ? gastric perf (PEG placed on 09/20) +/- TPN +/- central lines -TTE 10/07 no vegetations -PICC exchanged on 10/03 -fully treated with micafungin for 14 days last day 10/13 4) CA-UTI s/p gutierrez exchanged 5) Diarrhea - ? etiology ? antibiotic-induced, not better 6) Initial presumed aspiration pneumonia 7) Presumed UTI: urine cx 09/23 multiple species 8) Respiratory failure s/p trach 9) Recent CVA-left MCA CVA 10) Uncontrolled HTN 11) Acute on CKD 12) Extensive back skin peeling ? burn from gastric secretions. Doubt allergic reaction 13) Severe anemia; ? from GI bleed Plan: -discussed with surgery ok to remove bo -wound care consult for drainage/packing -continue IV vancomycin in view of surgical site infection -continue meropenem to cover peritonitis (was on zosyn before) day 13 of 14 -contact isolation in view of GNR growing from abd wall abscess - suspect it will be MDR -discussed with ICU staff Thank you Dr Ribeiro for your consultation, will follow up with you. Pauline Carias MD Infectious Diseases Specialist [facility] ([facility] M [phone] O [phone] Subjective Date of service: 10/18/16 Principal diagnosis: hematochezia Interval history: Somnolent open eyes spontaneously, not following commands, on the vent via trach , still tachycardic on monitor, no pressors. Tmax 101.2 and tachycardia on monitor, +oliguric. + diarrhea Microbiology: Blood cultures: 09/13 neg 8 Silvia albicans 09/25 Silvia 09/29 neg 10/07 NGTD Urine cultures: 09/10 neg 09/13 neg 8/ 10-100K mixed species 10/07 pending Respiratory cultures: 09/07 neg 09/13 neg 09/23 neg Wound cultures: 10/17 abd wall wound purulence + GNR Stool cultures: Current Antimicrobials: Meropenem 10/10 Vanco 10/17 Previous Antimicrobials: Zosyn 10/07 Vancomycin PO 10/01 Metronidazole 09/25 Micafungin 09/27-10/13 Objective - Exam Narrative Exam: General appearance: alert, non verbal, on the vent via trach no following commands Eyes: anicteric sclera, moist conjunctivae; PERRLA HENT: Atraumatic; oropharynx limited; Normal external ears. +NGT with greenish secretion Neck: +trach in place; supple, no thyromegaly or lymphadenopathy Lungs: coarse BS bilateral CV: tachycardic Abdomen: Soft, non-tender, +drain with purulent drainage, + diarrhea via rectal tube leaking. +old PEG site no drainage. Right sided Surgical site with bo an copious purulent drainage Extremities: +peripheral edema no extremity lymphadenopathy Skin: Julian sub mammary ulcers, extensive skin peeling on back Psych: somnolent . Neuro: somnolent non verbal on the vent. Lines: left arm PICC placed on 10/03 - Constitutional Vitals: Vital Signs Temp Pulse Resp BP Pulse Ox 99.2 F 115 H 31 H 162/93 98 10/18/16 10:00 10/18/16 11:15 10/18/16 11:00 10/18/16 11:15 10/18/16 11:00 Temperature -Last 24 Hours Temperature 99.2 F Temperature 99.7 F Temperature 101.5 F Temperature 100.1 F Temperature 99.8 F Temperature 99.8 F Temperature 97.4 F - Labs CBC & Chem 7: 10/18/16 04:00 10/18/16 04:00 Labs: Abnormal lab results 10/17/16 10/18/16 10/18/16 Range/Units 23:17 04:00 04:00 WBC 20.7 H (4.5-11.0) K/mm3 RBC 2.47 L (3.65-5.03) M/mm3 Hgb 7.4 L (10.1-14.3) gm/dl Hct 22.9 L (30.3-42.9) % RDW 17.5 H (13.2-15.2) % Sodium 149 H (137-145) mmol/L Chloride 107.9 H (98-107) mmol/L Carbon Dioxide 20 L (22-30) mmol/L BUN 117 H (7-17) mg/dL Creatinine 3.2 H (0.7-1.2) mg/dL Glucose 119 H (65-100) mg/dL POC Glucose 121 H (70-105) 10/18/16 Range/Units 05:23 WBC (4.5-11.0) K/mm3 RBC (3.65-5.03) M/mm3 Hgb (10.1-14.3) gm/dl Hct (30.3-42.9) % RDW (13.2-15.2) % Sodium (137-145) mmol/L Chloride (98-107) mmol/L Carbon Dioxide (22-30) mmol/L BUN (7-17) mg/dL Creatinine (0.7-1.2) mg/dL Glucose (65-100) mg/dL POC Glucose 119 H (70-105)
--- NOTE | 2016-10-18 12:42 | Progress Note ---
Assessment and Plan (1) Acute respiratory failure with hypoxia Current Visit: Yes Status: Acute Plan to address problem: - continue aspiration precautions / address VAP bundles - continue to wean oxygen for MAP > 94% - continue bronchodilators and pulmonary toilet - s/p tracheostomy - continue daily PSV trials as tolerated (2) Acute CVA (cerebrovascular accident) Current Visit: Yes Status: Acute Plan to address problem: - out of tpA window (initially stopped due to uncontrolled HTN) - Left MCA teritory stroke with some midline shift on last CT - seen by neurology and prognosis for recovery of mental status guarded to poor - optimizing secondary prevention modalities now (BP, lipid anti-platelet therapy) - off systemic steroids now (started earlier for edema) (3) Hypertensive emergency Current Visit: Yes Status: Acute Plan to address problem: - stopped all antihypertensives while septic - following cllinically (4) Obesity (BMI 35.0-39.9 without comorbidity) Current Visit: Yes Status: Chronic Plan to address problem: - nutrition consult placed for enteral formulation - on TPN now - follow clinically (5) Type 2 diabetes mellitus Current Visit: Yes Status: Chronic Qualifiers: Diabetes mellitus complication status: D Diabetes mellitus complication detail: D Diabetic retinopathy severity: D Proliferative retinopathy type: P Diabetes mellitus macular edema: D Diabetes mellitus assisted insulin use : D Laterality: L Chronic kidney disease stage: C Plan to address problem: - continue SSI - discontinued lantus re: hypoglycemia (6) Leukocytosis (leucocytosis) Current Visit: Yes Status: Acute Qualifiers: Leukocytosis type: leukemoid reaction Qualified Code(s): D72.823 - Leukemoid reaction Plan to address problem: - completed cancidas and de-escalate per ID recs - leucocytosis persistent but now trending down (7) Agitation Current Visit: Yes Status: Acute Plan to address problem: - prn sedation / analgesia - tapered off seroquel for now (8) Atrial fibrillation Current Visit: Yes Status: Acute Qualifiers: Atrial fibrillation type: A Plan to address problem: - failed cardioversion earlier - cardiology evaluation ongoing - back in A-fib - continue amiodarone drip (change to p.o. once tolerating enterally) - on IV metoprolol (9) JUANITA (acute kidney injury) Current Visit: Yes Status: Acute Plan to address problem: - on Dialysis now - continue HD/UF per nephrology recommendations - none today but remains oliguric (10) Pyrexia of unknown origin Current Visit: Yes Status: Acute Plan to address problem: - dopplers negative for DVT - continue to treat with Anti-infectives (11) Severe sepsis Current Visit: Yes Status: Acute Plan to address problem: - resume vasopressors for MAP < 60mmHg not responsive to volume - all central vascular access has been discontinued after fungemia reported - care plan formulated with ID input - BC's from 09/27/16 growing in 1of 2 but still no ID yet - coomplete micafungin per ID recs and stop date - wound care nurse also managing back wounds - clinically stable and hemodynamically improved - will discuss staple removal and drainage of RLQ collection - on contact precautions per ID (12) Emesis Current Visit: Yes Status: Acute Qualifiers: Vomiting type: V Vomiting Intractability: V Nausea presence: N Plan to address problem: - s/p surgical repair of gastric perforation - continue TPN for now - follow surgery recommendations (13) Discharge planning issues Current Visit: Yes Status: Acute Plan to address problem: - she remains critically ill on life sustaining interventions including MVS and at risk for further acute deterioration including .....30' CCT ....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 Subjective Date of service: 10/18/16 Principal diagnosis: Acute resp failure on MVS; S/P Acute CVA; Acute Encephalopathy; JUANITA Interval history: Seen and examined at bedside; 24 hour events reviewed; nursing and respiratory care staff consulted; no adverse overnight events reported to me; remains on MVS ; tolerating PSV today; AMS is persistent; seen by surgery and RLQ wound packed ; no new issues otherwise Objective Vital Signs - 12hr 10/18/16 10/18/16 10/18/16 01:00 02:00 02:27 Temperature Pulse Rate 115 H 122 H Pulse Rate [ From Monitor] Respiratory 20 18 Rate Blood Pressure 157/87 149/92 O2 Sat by Pulse 100 99 Oximetry O2 Sat by Pulse 100 Oximetry [ Assessment] O2 Sat by Pulse Oximetry [ Bilateral Throughout] 10/18/16 10/18/16 10/18/16 03:00 03:28 04:00 Temperature 101.5 F H Pulse Rate 123 H 127 H Pulse Rate [ From Monitor] Respiratory 18 21 Rate Blood Pressure 153/92 141/88 O2 Sat by Pulse 99 99 Oximetry O2 Sat by Pulse Oximetry [ Assessment] O2 Sat by Pulse Oximetry [ Bilateral Throughout] 10/18/16 10/18/16 10/18/16 04:15 05:01 06:00 Temperature Pulse Rate 119 H 123 H Pulse Rate [ From Monitor] Respiratory 21 Rate Blood Pressure 171/108 188/100 181/111 O2 Sat by Pulse 100 99 100 Oximetry O2 Sat by Pulse Oximetry [ Assessment] O2 Sat by Pulse Oximetry [ Bilateral Throughout] 10/18/16 10/18/16 10/18/16 06:16 06:17 07:00 Temperature Pulse Rate 123 H 122 H 114 H Pulse Rate [ From Monitor] Respiratory 22 Rate Blood Pressure 181/111 160/99 173/112 O2 Sat by Pulse 100 Oximetry O2 Sat by Pulse Oximetry [ Assessment] O2 Sat by Pulse Oximetry [ Bilateral Throughout] 10/18/16 10/18/16 10/18/16 07:31 08:00 08:05 Temperature 99.7 F H Pulse Rate 114 H 114 H 114 H Pulse Rate [ 114 H From Monitor] Respiratory 17 31 H Rate Blood Pressure 173/112 182/109 173/112 O2 Sat by Pulse 100 100 100 Oximetry O2 Sat by Pulse Oximetry [ Assessment] O2 Sat by Pulse Oximetry [ Bilateral Throughout] 10/18/16 10/18/16 10/18/16 08:06 08:31 09:00 Temperature Pulse Rate 121 H 120 H Pulse Rate [ From Monitor] Respiratory 39 H 17 Rate Blood Pressure 182/109 191/110 O2 Sat by Pulse 97 100 Oximetry O2 Sat by Pulse 99 Oximetry [ Assessment] O2 Sat by Pulse Oximetry [ Bilateral Throughout] 10/18/16 10/18/16 10/18/16 09:13 09:29 09:31 Temperature Pulse Rate 118 H 121 H 121 H Pulse Rate [ From Monitor] Respiratory 46 H Rate Blood Pressure 191/110 189/103 189/103 O2 Sat by Pulse 96 Oximetry O2 Sat by Pulse Oximetry [ Assessment] O2 Sat by Pulse Oximetry [ Bilateral Throughout] 10/18/16 10/18/16 10/18/16 10:00 10:30 10:40 Temperature 99.2 F Pulse Rate 115 H 109 H 111 H Pulse Rate [ From Monitor] Respiratory 22 23 Rate Blood Pressure 195/99 156/92 146/98 O2 Sat by Pulse 97 97 Oximetry O2 Sat by Pulse Oximetry [ Assessment] O2 Sat by Pulse 98 Oximetry [ Bilateral Throughout] 10/18/16 10/18/16 10/18/16 10:45 11:00 11:15 Temperature Pulse Rate 111 H 114 H 115 H Pulse Rate [ From Monitor] Respiratory 31 H Rate Blood Pressure 150/106 159/98 162/93 O2 Sat by Pulse 98 Oximetry O2 Sat by Pulse Oximetry [ Assessment] O2 Sat by Pulse Oximetry [ Bilateral Throughout] 10/18/16 10/18/16 12:00 12:02 Temperature 99.2 F Pulse Rate 115 H Pulse Rate [ From Monitor] Respiratory Rate Blood Pressure 162/93 O2 Sat by Pulse 98 Oximetry O2 Sat by Pulse Oximetry [ Assessment] O2 Sat by Pulse Oximetry [ Bilateral Throughout] Constitutional: no acute distress, other (eyes open; not tracking movements) Eyes: non-icteric, other (tracheostomy tube in midline of neck) ENT: oropharynx moist Neck: supple, no lymphadenopathy Effort: mildly labored Ascultation: Bilateral: diminished breath sounds (bases), rales Cardiovascular: regular rate and rhythm Gastrointestinal: hypoactive bowel sounds, soft, non-tender, non-distended, other (hema drain in place) Integumentary: other (erythema to skin of back with some healing areas; no obvious TEN's features) Extremities: no cyanosis, no edema, pulses normal, no ischemia or petechiae Neurologic: pupils equal and round, other (sedated) Psychiatric: other (unable to assess) CBC and BMP: 10/19/16 04:00 10/19/16 04:00 ABG, PT/INR, D-dimer: ABG POC ABG pH 7.561 (7.35-7.45) H 10/16/16 20:48 POC ABG pCO2 24.4 (35-45) L 10/16/16 20:48 POC ABG pO2 77 (80-105) L 10/16/16 20:48 POC ABG HCO3 21.9 10/16/16 20:48 POC ABG Total CO2 23 10/16/16 20:48 POC ABG O2 Sat 97 10/16/16 20:48 PT/INR, D-dimer PT 19.0 Sec. (12.2-14.9) H 10/09/16 03:45 INR 1.51 (0.87-1.13) H 10/09/16 03:45 Abnormal lab findings: Abnormal Labs 09/03/16 09/03/16 09/03/16 12:12 15:07 16:20 WBC RBC Hgb Hct MCV MCH MCHC RDW Plt Count Lymph % (Auto) [place] % (Auto) Lymph # [place] # Seg Neutrophils % Seg Neuts % (Manual) Lymphocytes % (Manual) Monocytes % (Manual) Eosinophils % (Manual) Basophils % (Manual) Nucleated RBC % Seg Neutrophils # Seg Neutrophils # Man Lymphocytes # (Manual) Monocytes # (Manual) Eosinophils # (Manual) PT INR Fibrinogen dRVVT Confirm Interp Factor V Activity POC ABG pH 7.452 H POC ABG pCO2 POC ABG pO2 Sodium Potassium Chloride Carbon Dioxide BUN Creatinine Glucose POC Glucose 178 H Lactic Acid Calcium Phosphorus 2.20 L Magnesium 1.60 L Direct Bilirubin ALT Alkaline Phosphatase Troponin T C-Reactive Protein Total Protein Albumin Triglycerides Cholesterol LDL Cholesterol Direct HDL Cholesterol Urine WBC (Auto) Urine Creatinine Urine Total Protein Vancomycin Trough Rheumatoid Factor Complement C4 Miscellaneous Test Crossmatch 09/03/16 09/03/16 09/03/16 17:57 17:58 23:50 WBC RBC Hgb Hct MCV MCH MCHC RDW Plt Count Lymph % (Auto) [place] % (Auto) Lymph # [place] # Seg Neutrophils % Seg Neuts % (Manual) Lymphocytes % (Manual) Monocytes % (Manual) Eosinophils % (Manual) Basophils % (Manual) Nucleated RBC % Seg Neutrophils # Seg Neutrophils # Man Lymphocytes # (Manual) Monocytes # (Manual) Eosinophils # (Manual) PT INR Fibrinogen dRVVT Confirm Interp Factor V Activity POC ABG pH POC ABG pCO2 POC ABG pO2 Sodium Potassium Chloride Carbon Dioxide BUN Creatinine Glucose POC Glucose 162 H 145 H Lactic Acid Calcium Phosphorus 2.30 L Magnesium Direct Bilirubin ALT Alkaline Phosphatase Troponin T C-Reactive Protein Total Protein Albumin Triglycerides Cholesterol LDL Cholesterol Direct HDL Cholesterol Urine WBC (Auto) Urine Creatinine Urine Total Protein Vancomycin Trough Rheumatoid Factor Complement C4 Miscellaneous Test Crossmatch 09/04/16 09/04/16 09/04/16 03:31 03:31 05:42 WBC RBC Hgb 9.7 L D Hct MCV 72 L MCH 23 L MCHC RDW 17.5 H Plt Count Lymph % (Auto) 11.1 L [place] % (Auto) Lymph # [place] # Seg Neutrophils % 84.3 H Seg Neuts % (Manual) Lymphocytes % (Manual) Monocytes % (Manual) Eosinophils % (Manual) Basophils % (Manual) Nucleated RBC % Seg Neutrophils # 8.9 H Seg Neutrophils # Man Lymphocytes # (Manual) Monocytes # (Manual) Eosinophils # (Manual) PT INR Fibrinogen dRVVT Confirm Interp Factor V Activity POC ABG pH POC ABG pCO2 POC ABG pO2 Sodium 135 L Potassium 2.9 L* Chloride 97.2 L Carbon Dioxide 19 L BUN Creatinine 1.7 H Glucose 170 H POC Glucose 152 H Lactic Acid Calcium Phosphorus Magnesium Direct Bilirubin ALT Alkaline Phosphatase Troponin T C-Reactive Protein Total Protein Albumin Triglycerides 160 H Cholesterol LDL Cholesterol Direct HDL Cholesterol 31 L Urine WBC (Auto) Urine Creatinine Urine Total Protein Vancomycin Trough Rheumatoid Factor Complement C4 Miscellaneous Test Crossmatch 09/04/16 09/04/16 09/04/16 11:34 17:46 23:29 WBC RBC Hgb Hct MCV MCH MCHC RDW Plt Count Lymph % (Auto) [place] % (Auto) Lymph # [place] # Seg Neutrophils % Seg Neuts % (Manual) Lymphocytes % (Manual) Monocytes % (Manual) Eosinophils % (Manual) Basophils % (Manual) Nucleated RBC % Seg Neutrophils # Seg Neutrophils # Man Lymphocytes # (Manual) Monocytes # (Manual) Eosinophils # (Manual) PT INR Fibrinogen dRVVT Confirm Interp Factor V Activity POC ABG pH POC ABG pCO2 POC ABG pO2 Sodium Potassium Chloride Carbon Dioxide BUN Creatinine Glucose POC Glucose 165 H 210 H 139 H Lactic Acid Calcium Phosphorus Magnesium Direct Bilirubin ALT Alkaline Phosphatase Troponin T C-Reactive Protein Total Protein Albumin Triglycerides Cholesterol LDL Cholesterol Direct HDL Cholesterol Urine WBC (Auto) Urine Creatinine Urine Total Protein Vancomycin Trough Rheumatoid Factor Complement C4 Miscellaneous Test Crossmatch 09/05/16 09/05/16 09/05/16 04:05 04:05 05:38 WBC RBC Hgb Hct MCV 76 L D MCH 23 L MCHC RDW 17.8 H Plt Count Lymph % (Auto) [place] % (Auto) Lymph # [place] # Seg Neutrophils % Seg Neuts % (Manual) Lymphocytes % (Manual) Monocytes % (Manual) Eosinophils % (Manual) Basophils % (Manual) Nucleated RBC % Seg Neutrophils # Seg Neutrophils # Man Lymphocytes # (Manual) Monocytes # (Manual) Eosinophils # (Manual) PT INR Fibrinogen dRVVT Confirm Interp Factor V Activity POC ABG pH POC ABG pCO2 POC ABG pO2 Sodium 134 L Potassium Chloride Carbon Dioxide 18 L BUN Creatinine 1.8 H Glucose 192 H POC Glucose 175 H Lactic Acid Calcium Phosphorus Magnesium Direct Bilirubin ALT Alkaline Phosphatase Troponin T C-Reactive Protein Total Protein Albumin Triglycerides Cholesterol LDL Cholesterol Direct HDL Cholesterol Urine WBC (Auto) Urine Creatinine Urine Total Protein Vancomycin Trough Rheumatoid Factor Complement C4 Miscellaneous Test Crossmatch 09/05/16 09/05/16 09/05/16 11:38 17:48 23:22 WBC RBC Hgb Hct MCV MCH MCHC RDW Plt Count Lymph % (Auto) [place] % (Auto) Lymph # [place] # Seg Neutrophils % Seg Neuts % (Manual) Lymphocytes % (Manual) Monocytes % (Manual) Eosinophils % (Manual) Basophils % (Manual) Nucleated RBC % Seg Neutrophils # Seg Neutrophils # Man Lymphocytes # (Manual) Monocytes # (Manual) Eosinophils # (Manual) PT INR Fibrinogen dRVVT Confirm Interp Factor V Activity POC ABG pH POC ABG pCO2 POC ABG pO2 Sodium Potassium Chloride Carbon Dioxide BUN Creatinine Glucose POC Glucose 164 H 186 H 195 H Lactic Acid Calcium Phosphorus Magnesium Direct Bilirubin ALT Alkaline Phosphatase Troponin T C-Reactive Protein Total Protein Albumin Triglycerides Cholesterol LDL Cholesterol Direct HDL Cholesterol Urine WBC (Auto) Urine Creatinine Urine Total Protein Vancomycin Trough Rheumatoid Factor Complement C4 Miscellaneous Test Crossmatch 09/06/16 09/06/16 09/06/16 04:12 05:59 07:32 WBC RBC Hgb Hct MCV MCH MCHC RDW Plt Count Lymph % (Auto) [place] % (Auto) Lymph # [place] # Seg Neutrophils % Seg Neuts % (Manual) Lymphocytes % (Manual) Monocytes % (Manual) Eosinophils % (Manual) Basophils % (Manual) Nucleated RBC % Seg Neutrophils # Seg Neutrophils # Man Lymphocytes # (Manual) Monocytes # (Manual) Eosinophils # (Manual) PT INR Fibrinogen dRVVT Confirm Interp Factor V Activity POC ABG pH 7.514 H POC ABG pCO2 29.1 L POC ABG pO2 72 L Sodium 133 L Potassium 3.4 L Chloride 94.9 L Carbon Dioxide 19 L BUN 30 H Creatinine 2.1 H Glucose 139 H POC Glucose 146 H Lactic Acid Calcium Phosphorus Magnesium Direct Bilirubin ALT Alkaline Phosphatase Troponin T C-Reactive Protein Total Protein Albumin Triglycerides Cholesterol LDL Cholesterol Direct HDL Cholesterol Urine WBC (Auto) Urine Creatinine Urine Total Protein Vancomycin Trough Rheumatoid Factor Complement C4 Miscellaneous Test Crossmatch 09/06/16 09/06/16 09/06/16 11:57 17:58 19:02 WBC RBC Hgb Hct MCV MCH MCHC RDW Plt Count Lymph % (Auto) [place] % (Auto) Lymph # [place] # Seg Neutrophils % Seg Neuts % (Manual) Lymphocytes % (Manual) Monocytes % (Manual) Eosinophils % (Manual) Basophils % (Manual) Nucleated RBC % Seg Neutrophils # Seg Neutrophils # Man Lymphocytes # (Manual) Monocytes # (Manual) Eosinophils # (Manual) PT INR Fibrinogen dRVVT Confirm Interp Factor V Activity POC ABG pH 7.465 H POC ABG pCO2 32.0 L POC ABG pO2 Sodium Potassium Chloride Carbon Dioxide BUN Creatinine Glucose POC Glucose 165 H 160 H Lactic Acid Calcium Phosphorus Magnesium Direct Bilirubin ALT Alkaline Phosphatase Troponin T C-Reactive Protein Total Protein Albumin Triglycerides Cholesterol LDL Cholesterol Direct HDL Cholesterol Urine WBC (Auto) Urine Creatinine Urine Total Protein Vancomycin Trough Rheumatoid Factor Complement C4 Miscellaneous Test Crossmatch 09/06/16 09/07/16 09/07/16 23:45 02:47 02:47 WBC RBC Hgb Hct MCV MCH MCHC RDW Plt Count Lymph % (Auto) [place] % (Auto) Lymph # [place] # Seg Neutrophils % Seg Neuts % (Manual) Lymphocytes % (Manual) Monocytes % (Manual) Eosinophils % (Manual) Basophils % (Manual) Nucleated RBC % Seg Neutrophils # Seg Neutrophils # Man Lymphocytes # (Manual) Monocytes # (Manual) Eosinophils # (Manual) PT INR Fibrinogen dRVVT Confirm Interp Factor V Activity POC ABG pH POC ABG pCO2 POC ABG pO2 Sodium Potassium Chloride Carbon Dioxide BUN Creatinine Glucose POC Glucose 204 H Lactic Acid Calcium Phosphorus Magnesium Direct Bilirubin ALT Alkaline Phosphatase Troponin T C-Reactive Protein Total Protein Albumin Triglycerides Cholesterol LDL Cholesterol Direct HDL Cholesterol Urine WBC (Auto) 68.0 H Urine Creatinine 106.1 H Urine Total Protein Vancomycin Trough Rheumatoid Factor Complement C4 Miscellaneous Test Crossmatch 09/07/16 09/07/16 09/07/16 04:50 06:19 06:39 WBC RBC Hgb Hct MCV MCH MCHC RDW Plt Count Lymph % (Auto) [place] % (Auto) Lymph # [place] # Seg Neutrophils % Seg Neuts % (Manual) Lymphocytes % (Manual) Monocytes % (Manual) Eosinophils % (Manual) Basophils % (Manual) Nucleated RBC % Seg Neutrophils # Seg Neutrophils # Man Lymphocytes # (Manual) Monocytes # (Manual) Eosinophils # (Manual) PT INR Fibrinogen dRVVT Confirm Interp Factor V Activity POC ABG pH 7.457 H POC ABG pCO2 32.1 L POC ABG pO2 76 L Sodium 132 L Potassium Chloride 94.7 L Carbon Dioxide BUN 53 H Creatinine 2.9 H Glucose 151 H POC Glucose 149 H Lactic Acid Calcium Phosphorus Magnesium Direct Bilirubin ALT Alkaline Phosphatase Troponin T C-Reactive Protein Total Protein Albumin Triglycerides Cholesterol LDL Cholesterol Direct HDL Cholesterol Urine WBC (Auto) Urine Creatinine Urine Total Protein Vancomycin Trough Rheumatoid Factor Complement C4 Miscellaneous Test Crossmatch 09/07/16 09/07/16 09/07/16 09:20 11:43 11:43 WBC 19.4 H RBC Hgb 8.3 L Hct 26.4 L D MCV 72 L D MCH 22 L MCHC RDW 17.9 H Plt Count Lymph % (Auto) 8.5 L [place] % (Auto) Lymph # [place] # 1.0 H Seg Neutrophils % 85.8 H Seg Neuts % (Manual) Lymphocytes % (Manual) Monocytes % (Manual) Eosinophils % (Manual) Basophils % (Manual) Nucleated RBC % Seg Neutrophils # 16.6 H Seg Neutrophils # Man Lymphocytes # (Manual) Monocytes # (Manual) Eosinophils # (Manual) PT INR Fibrinogen dRVVT Confirm Interp Factor V Activity POC ABG pH POC ABG pCO2 POC ABG pO2 Sodium 134 L Potassium Chloride 97.2 L Carbon Dioxide 20 L BUN 58 H Creatinine 2.9 H Glucose 147 H POC Glucose Lactic Acid Calcium Phosphorus 2.40 L Magnesium 2.40 H Direct Bilirubin ALT Alkaline Phosphatase Troponin T C-Reactive Protein Total Protein 5.8 L Albumin 2.2 L Triglycerides Cholesterol LDL Cholesterol Direct HDL Cholesterol Urine WBC (Auto) Urine Creatinine Urine Total Protein Vancomycin Trough Rheumatoid Factor Complement C4 58 H Miscellaneous Test Crossmatch 09/07/16 09/07/16 09/07/16 11:50 16:00 17:31 WBC RBC Hgb Hct MCV MCH MCHC RDW Plt Count Lymph % (Auto) [place] % (Auto) Lymph # [place] # Seg Neutrophils % Seg Neuts % (Manual) Lymphocytes % (Manual) Monocytes % (Manual) Eosinophils % (Manual) Basophils % (Manual) Nucleated RBC % Seg Neutrophils # Seg Neutrophils # Man Lymphocytes # (Manual) Monocytes # (Manual) Eosinophils # (Manual) PT INR Fibrinogen dRVVT Confirm Interp Factor V Activity POC ABG pH POC ABG pCO2 POC ABG pO2 158 H Sodium Potassium Chloride Carbon Dioxide BUN Creatinine Glucose POC Glucose 175 H Lactic Acid Calcium Phosphorus Magnesium Direct Bilirubin ALT Alkaline Phosphatase Troponin T C-Reactive Protein Total Protein Albumin Triglycerides Cholesterol LDL Cholesterol Direct HDL Cholesterol Urine WBC (Auto) Urine Creatinine 66.3 H Urine Total Protein Vancomycin Trough Rheumatoid Factor Complement C4 Miscellaneous Test Crossmatch 09/07/16 09/08/16 09/08/16 23:50 05:46 06:18 WBC 17.8 H RBC 3.58 L Hgb 8.1 L Hct 25.5 L MCV 71 L MCH 23 L MCHC RDW 18.4 H Plt Count Lymph % (Auto) [place] % (Auto) Lymph # [place] # Seg Neutrophils % Seg Neuts % (Manual) 92.0 H Lymphocytes % (Manual) 6.0 L Monocytes % (Manual) Eosinophils % (Manual) Basophils % (Manual) Nucleated RBC % Seg Neutrophils # Seg Neutrophils # Man 16.4 H Lymphocytes # (Manual) 1.1 L Monocytes # (Manual) Eosinophils # (Manual) PT INR Fibrinogen dRVVT Confirm Interp Factor V Activity POC ABG pH POC ABG pCO2 34.3 L POC ABG pO2 71 L Sodium Potassium Chloride Carbon Dioxide BUN Creatinine Glucose POC Glucose 216 H Lactic Acid Calcium Phosphorus Magnesium Direct Bilirubin ALT Alkaline Phosphatase Troponin T C-Reactive Protein Total Protein Albumin Triglycerides Cholesterol LDL Cholesterol Direct HDL Cholesterol Urine WBC (Auto) Urine Creatinine Urine Total Protein Vancomycin Trough Rheumatoid Factor Complement C4 Miscellaneous Test Crossmatch 09/08/16 09/08/16 09/08/16 06:18 06:51 10:55 WBC RBC Hgb Hct MCV MCH MCHC RDW Plt Count Lymph % (Auto) [place] % (Auto) Lymph # [place] # Seg Neutrophils % Seg Neuts % (Manual) Lymphocytes % (Manual) Monocytes % (Manual) Eosinophils % (Manual) Basophils % (Manual) Nucleated RBC % Seg Neutrophils # Seg Neutrophils # Man Lymphocytes # (Manual) Monocytes # (Manual) Eosinophils # (Manual) PT INR Fibrinogen dRVVT Confirm Interp Factor V Activity POC ABG pH POC ABG pCO2 POC ABG pO2 Sodium 133 L Potassium Chloride 96.9 L Carbon Dioxide 20 L BUN 63 H Creatinine 2.7 H Glucose 195 H POC Glucose 204 H 169 H Lactic Acid Calcium Phosphorus Magnesium Direct Bilirubin ALT Alkaline Phosphatase Troponin T C-Reactive Protein Total Protein Albumin Triglycerides Cholesterol LDL Cholesterol Direct HDL Cholesterol Urine WBC (Auto) Urine Creatinine Urine Total Protein Vancomycin Trough Rheumatoid Factor Complement C4 Miscellaneous Test Crossmatch 09/08/16 09/08/16 09/08/16 11:48 11:48 11:48 WBC RBC Hgb Hct MCV MCH MCHC RDW Plt Count Lymph % (Auto) [place] % (Auto) Lymph # [place] # Seg Neutrophils % Seg Neuts % (Manual) Lymphocytes % (Manual) Monocytes % (Manual) Eosinophils % (Manual) Basophils % (Manual) Nucleated RBC % Seg Neutrophils # Seg Neutrophils # Man Lymphocytes # (Manual) Monocytes # (Manual) Eosinophils # (Manual) PT INR Fibrinogen 750 H dRVVT Confirm Interp Factor V Activity POC ABG pH POC ABG pCO2 POC ABG pO2 Sodium Potassium Chloride Carbon Dioxide BUN Creatinine Glucose POC Glucose Lactic Acid Calcium Phosphorus Magnesium Direct Bilirubin ALT Alkaline Phosphatase Troponin T C-Reactive Protein 15.70 H Total Protein Albumin Triglycerides Cholesterol LDL Cholesterol Direct HDL Cholesterol Urine WBC (Auto) Urine Creatinine Urine Total Protein Vancomycin Trough Rheumatoid Factor 24 H Complement C4 Miscellaneous Test Crossmatch 09/08/16 09/08/16 09/09/16 15:35 18:25 00:24 WBC RBC Hgb Hct MCV MCH MCHC RDW Plt Count Lymph % (Auto) [place] % (Auto) Lymph # [place] # Seg Neutrophils % Seg Neuts % (Manual) Lymphocytes % (Manual) Monocytes % (Manual) Eosinophils % (Manual) Basophils % (Manual) Nucleated RBC % Seg Neutrophils # Seg Neutrophils # Man Lymphocytes # (Manual) Monocytes # (Manual) Eosinophils # (Manual) PT INR Fibrinogen dRVVT Confirm Interp Factor V Activity 182 H POC ABG pH POC ABG pCO2 POC ABG pO2 Sodium Potassium Chloride Carbon Dioxide BUN Creatinine Glucose POC Glucose 184 H 216 H Lactic Acid Calcium Phosphorus Magnesium Direct Bilirubin ALT Alkaline Phosphatase Troponin T C-Reactive Protein Total Protein Albumin Triglycerides Cholesterol LDL Cholesterol Direct HDL Cholesterol Urine WBC (Auto) Urine Creatinine Urine Total Protein Vancomycin Trough Rheumatoid Factor Complement C4 Miscellaneous Test Crossmatch 09/09/16 09/09/16 09/09/16 03:00 03:00 04:04 WBC 27.9 H RBC Hgb 8.7 L Hct 28.1 L MCV 72 L MCH 22 L MCHC RDW 18.4 H Plt Count 485 H Lymph % (Auto) [place] % (Auto) Lymph # [place] # Seg Neutrophils % Seg Neuts % (Manual) 77.0 H Lymphocytes % (Manual) 9.0 L Monocytes % (Manual) Eosinophils % (Manual) Basophils % (Manual) Nucleated RBC % Seg Neutrophils # Seg Neutrophils # Man 21.5 H Lymphocytes # (Manual) Monocytes # (Manual) 2.0 H Eosinophils # (Manual) PT INR Fibrinogen dRVVT Confirm Interp Factor V Activity POC ABG pH POC ABG pCO2 POC ABG pO2 121 H Sodium 135 L Potassium Chloride 96.3 L Carbon Dioxide 21 L BUN 83 H Creatinine 3.0 H Glucose 135 H POC Glucose Lactic Acid Calcium Phosphorus Magnesium Direct Bilirubin ALT Alkaline Phosphatase Troponin T C-Reactive Protein Total Protein Albumin Triglycerides Cholesterol LDL Cholesterol Direct HDL Cholesterol Urine WBC (Auto) Urine Creatinine Urine Total Protein Vancomycin Trough Rheumatoid Factor Complement C4 Miscellaneous Test Crossmatch 09/09/16 09/09/16 09/09/16 05:41 11:55 14:13 WBC RBC Hgb Hct MCV MCH MCHC RDW Plt Count Lymph % (Auto) [place] % (Auto) Lymph # [place] # Seg Neutrophils % Seg Neuts % (Manual) Lymphocytes % (Manual) Monocytes % (Manual) Eosinophils % (Manual) Basophils % (Manual) Nucleated RBC % Seg Neutrophils # Seg Neutrophils # Man Lymphocytes # (Manual) Monocytes # (Manual) Eosinophils # (Manual) PT INR Fibrinogen dRVVT Confirm Interp Factor V Activity POC ABG pH POC ABG pCO2 POC ABG pO2 Sodium Potassium Chloride Carbon Dioxide BUN Creatinine Glucose POC Glucose 155 H 186 H Lactic Acid Calcium Phosphorus Magnesium Direct Bilirubin ALT Alkaline Phosphatase Troponin T C-Reactive Protein Total Protein Albumin Triglycerides Cholesterol LDL Cholesterol Direct HDL Cholesterol Urine WBC (Auto) 25.0 H Urine Creatinine Urine Total Protein Vancomycin Trough Rheumatoid Factor Complement C4 Miscellaneous Test Crossmatch 09/09/16 09/09/16 09/10/16 17:33 23:13 05:09 WBC RBC Hgb Hct MCV MCH MCHC RDW Plt Count Lymph % (Auto) [place] % (Auto) Lymph # [place] # Seg Neutrophils % Seg Neuts % (Manual) Lymphocytes % (Manual) Monocytes % (Manual) Eosinophils % (Manual) Basophils % (Manual) Nucleated RBC % Seg Neutrophils # Seg Neutrophils # Man Lymphocytes # (Manual) Monocytes # (Manual) Eosinophils # (Manual) PT INR Fibrinogen dRVVT Confirm Interp Factor V Activity POC ABG pH POC ABG pCO2 POC ABG pO2 74 L Sodium Potassium Chloride Carbon Dioxide BUN Creatinine Glucose POC Glucose 211 H 215 H Lactic Acid Calcium Phosphorus Magnesium Direct Bilirubin ALT Alkaline Phosphatase Troponin T C-Reactive Protein Total Protein Albumin Triglycerides Cholesterol LDL Cholesterol Direct HDL Cholesterol Urine WBC (Auto) Urine Creatinine Urine Total Protein Vancomycin Trough Rheumatoid Factor Complement C4 Miscellaneous Test Crossmatch 09/10/16 09/10/16 09/10/16 05:17 05:17 11:31 WBC 15.8 H RBC 3.25 L Hgb 7.3 L Hct 22.9 L MCV 71 L MCH 23 L MCHC RDW 18.4 H Plt Count Lymph % (Auto) [place] % (Auto) Lymph # [place] # Seg Neutrophils % Seg Neuts % (Manual) 91.0 H Lymphocytes % (Manual) 4.0 L Monocytes % (Manual) Eosinophils % (Manual) Basophils % (Manual) Nucleated RBC % Seg Neutrophils # Seg Neutrophils # Man 14.4 H Lymphocytes # (Manual) 0.6 L Monocytes # (Manual) Eosinophils # (Manual) PT INR Fibrinogen dRVVT Confirm Interp Factor V Activity POC ABG pH POC ABG pCO2 POC ABG pO2 Sodium Potassium Chloride Carbon Dioxide 21 L BUN 93 H Creatinine 2.9 H Glucose 146 H POC Glucose 188 H Lactic Acid Calcium 8.1 L Phosphorus Magnesium Direct Bilirubin ALT Alkaline Phosphatase Troponin T C-Reactive Protein Total Protein Albumin Triglycerides Cholesterol LDL Cholesterol Direct HDL Cholesterol Urine WBC (Auto) Urine Creatinine Urine Total Protein Vancomycin Trough Rheumatoid Factor Complement C4 Miscellaneous Test Crossmatch 09/10/16 09/10/16 09/10/16 13:17 17:20 23:32 WBC RBC Hgb Hct MCV MCH MCHC RDW Plt Count Lymph % (Auto) [place] % (Auto) Lymph # [place] # Seg Neutrophils % Seg Neuts % (Manual) Lymphocytes % (Manual) Monocytes % (Manual) Eosinophils % (Manual) Basophils % (Manual) Nucleated RBC % Seg Neutrophils # Seg Neutrophils # Man Lymphocytes # (Manual) Monocytes # (Manual) Eosinophils # (Manual) PT INR Fibrinogen dRVVT Confirm Interp Factor V Activity POC ABG pH POC ABG pCO2 POC ABG pO2 Sodium Potassium Chloride Carbon Dioxide BUN Creatinine Glucose POC Glucose 199 H 186 H Lactic Acid Calcium Phosphorus Magnesium Direct Bilirubin ALT Alkaline Phosphatase Troponin T C-Reactive Protein Total Protein Albumin Triglycerides Cholesterol LDL Cholesterol Direct HDL Cholesterol Urine WBC (Auto) Urine Creatinine Urine Total Protein Vancomycin Trough Rheumatoid Factor Complement C4 Miscellaneous Test Crossmatch See Detail 09/11/16 09/11/16 09/11/16 05:10 05:10 05:17 WBC 28.4 H RBC Hgb 9.2 L Hct 29.3 L D MCV 73 L MCH 23 L MCHC RDW 18.9 H Plt Count 452 H Lymph % (Auto) [place] % (Auto) Lymph # [place] # Seg Neutrophils % Seg Neuts % (Manual) 89.5 H Lymphocytes % (Manual) 2.0 L Monocytes % (Manual) Eosinophils % (Manual) Basophils % (Manual) Nucleated RBC % Seg Neutrophils # Seg Neutrophils # Man 25.4 H Lymphocytes # (Manual) 0.6 L Monocytes # (Manual) 1.3 H Eosinophils # (Manual) PT INR Fibrinogen dRVVT Confirm Interp Factor V Activity POC ABG pH POC ABG pCO2 POC ABG pO2 Sodium 136 L Potassium Chloride Carbon Dioxide 18 L BUN 107 H Creatinine 2.6 H Glucose 187 H POC Glucose 230 H Lactic Acid Calcium 8.3 L Phosphorus Magnesium Direct Bilirubin ALT Alkaline Phosphatase Troponin T C-Reactive Protein Total Protein Albumin Triglycerides Cholesterol LDL Cholesterol Direct HDL Cholesterol Urine WBC (Auto) Urine Creatinine Urine Total Protein Vancomycin Trough Rheumatoid Factor Complement C4 Miscellaneous Test Crossmatch 09/11/16 09/11/16 09/11/16 05:55 12:02 17:32 WBC RBC Hgb Hct MCV MCH MCHC RDW Plt Count Lymph % (Auto) [place] % (Auto) Lymph # [place] # Seg Neutrophils % Seg Neuts % (Manual) Lymphocytes % (Manual) Monocytes % (Manual) Eosinophils % (Manual) Basophils % (Manual) Nucleated RBC % Seg Neutrophils # Seg Neutrophils # Man Lymphocytes # (Manual) Monocytes # (Manual) Eosinophils # (Manual) PT INR Fibrinogen dRVVT Confirm Interp Factor V Activity POC ABG pH POC ABG pCO2 33.8 L POC ABG pO2 Sodium Potassium Chloride Carbon Dioxide BUN Creatinine Glucose POC Glucose 191 H 239 H Lactic Acid Calcium Phosphorus Magnesium Direct Bilirubin ALT Alkaline Phosphatase Troponin T C-Reactive Protein Total Protein Albumin Triglycerides Cholesterol LDL Cholesterol Direct HDL Cholesterol Urine WBC (Auto) Urine Creatinine Urine Total Protein Vancomycin Trough Rheumatoid Factor Complement C4 Miscellaneous Test Crossmatch 09/11/16 09/12/16 09/12/16 23:52 05:09 05:32 WBC RBC Hgb Hct MCV MCH MCHC RDW Plt Count Lymph % (Auto) [place] % (Auto) Lymph # [place] # Seg Neutrophils % Seg Neuts % (Manual) Lymphocytes % (Manual) Monocytes % (Manual) Eosinophils % (Manual) Basophils % (Manual) Nucleated RBC % Seg Neutrophils # Seg Neutrophils # Man Lymphocytes # (Manual) Monocytes # (Manual) Eosinophils # (Manual) PT INR Fibrinogen dRVVT Confirm Interp Factor V Activity POC ABG pH POC ABG pCO2 34.6 L POC ABG pO2 Sodium Potassium Chloride Carbon Dioxide BUN Creatinine Glucose POC Glucose 265 H 184 H Lactic Acid Calcium Phosphorus Magnesium Direct Bilirubin ALT Alkaline Phosphatase Troponin T C-Reactive Protein Total Protein Albumin Triglycerides Cholesterol LDL Cholesterol Direct HDL Cholesterol Urine WBC (Auto) Urine Creatinine Urine Total Protein Vancomycin Trough Rheumatoid Factor Complement C4 Miscellaneous Test Crossmatch 09/12/16 09/12/16 09/12/16 06:45 06:45 07:22 WBC 31.7 H RBC 3.54 L Hgb 8.3 L Hct 25.9 L MCV 73 L MCH 23 L MCHC RDW 18.9 H Plt Count Lymph % (Auto) [place] % (Auto) Lymph # [place] # Seg Neutrophils % Seg Neuts % (Manual) 88.5 H Lymphocytes % (Manual) 4.5 L Monocytes % (Manual) Eosinophils % (Manual) Basophils % (Manual) Nucleated RBC % Seg Neutrophils # Seg Neutrophils # Man 28.1 H Lymphocytes # (Manual) Monocytes # (Manual) 1.0 H Eosinophils # (Manual) PT INR Fibrinogen dRVVT Confirm Interp Factor V Activity POC ABG pH POC ABG pCO2 POC ABG pO2 Sodium Potassium Chloride Carbon Dioxide 20 L BUN 115 H Creatinine 2.7 H Glucose 165 H POC Glucose Lactic Acid Calcium 8.0 L Phosphorus Magnesium Direct Bilirubin ALT Alkaline Phosphatase Troponin T C-Reactive Protein Total Protein Albumin Triglycerides 217 H Cholesterol LDL Cholesterol Direct HDL Cholesterol Urine WBC (Auto) Urine Creatinine Urine Total Protein Vancomycin Trough Rheumatoid Factor Complement C4 Miscellaneous Test Crossmatch 09/12/16 09/12/16 09/12/16 07:22 09:59 12:21 WBC RBC Hgb Hct MCV MCH MCHC RDW Plt Count Lymph % (Auto) [place] % (Auto) Lymph # [place] # Seg Neutrophils % Seg Neuts % (Manual) Lymphocytes % (Manual) Monocytes % (Manual) Eosinophils % (Manual) Basophils % (Manual) Nucleated RBC % Seg Neutrophils # Seg Neutrophils # Man Lymphocytes # (Manual) Monocytes # (Manual) Eosinophils # (Manual) PT INR Fibrinogen dRVVT Confirm Interp Positive H Factor V Activity POC ABG pH POC ABG pCO2 POC ABG pO2 Sodium Potassium Chloride Carbon Dioxide BUN Creatinine Glucose POC Glucose 224 H Lactic Acid Calcium Phosphorus Magnesium Direct Bilirubin ALT Alkaline Phosphatase Troponin T C-Reactive Protein 1.70 H Total Protein Albumin Triglycerides Cholesterol LDL Cholesterol Direct HDL Cholesterol Urine WBC (Auto) Urine Creatinine Urine Total Protein Vancomycin Trough Rheumatoid Factor Complement C4 Miscellaneous Test Crossmatch 09/12/16 09/12/16 09/13/16 16:51 23:28 04:00 WBC 45.0 H* RBC Hgb 9.4 L Hct MCV 75 L MCH 23 L MCHC RDW 19.0 H Plt Count 470 H Lymph % (Auto) [place] % (Auto) Lymph # [place] # Seg Neutrophils % Seg Neuts % (Manual) 89.0 H Lymphocytes % (Manual) 5.0 L Monocytes % (Manual) Eosinophils % (Manual) Basophils % (Manual) Nucleated RBC % Seg Neutrophils # Seg Neutrophils # Man 40.1 H Lymphocytes # (Manual) Monocytes # (Manual) Eosinophils # (Manual) PT INR Fibrinogen dRVVT Confirm Interp Factor V Activity POC ABG pH POC ABG pCO2 POC ABG pO2 Sodium Potassium Chloride Carbon Dioxide BUN Creatinine Glucose POC Glucose 169 H 150 H Lactic Acid Calcium Phosphorus Magnesium Direct Bilirubin ALT Alkaline Phosphatase Troponin T C-Reactive Protein Total Protein Albumin Triglycerides Cholesterol LDL Cholesterol Direct HDL Cholesterol Urine WBC (Auto) Urine Creatinine Urine Total Protein Vancomycin Trough Rheumatoid Factor Complement C4 Miscellaneous Test Crossmatch 09/13/16 09/13/16 09/13/16 04:00 11:26 17:31 WBC RBC Hgb Hct MCV MCH MCHC RDW Plt Count Lymph % (Auto) [place] % (Auto) Lymph # [place] # Seg Neutrophils % Seg Neuts % (Manual) Lymphocytes % (Manual) Monocytes % (Manual) Eosinophils % (Manual) Basophils % (Manual) Nucleated RBC % Seg Neutrophils # Seg Neutrophils # Man Lymphocytes # (Manual) Monocytes # (Manual) Eosinophils # (Manual) PT INR Fibrinogen dRVVT Confirm Interp Factor V Activity POC ABG pH POC ABG pCO2 POC ABG pO2 Sodium Potassium Chloride Carbon Dioxide 20 L BUN 116 H Creatinine 3.0 H Glucose 172 H POC Glucose 140 H 183 H Lactic Acid Calcium Phosphorus Magnesium Direct Bilirubin ALT Alkaline Phosphatase Troponin T C-Reactive Protein Total Protein 6.2 L Albumin 2.9 L Triglycerides Cholesterol LDL Cholesterol Direct HDL Cholesterol Urine WBC (Auto) Urine Creatinine Urine Total Protein Vancomycin Trough Rheumatoid Factor Complement C4 Miscellaneous Test Crossmatch 09/13/16 09/14/16 09/14/16 23:23 04:06 04:07 WBC 29.4 H RBC Hgb 8.9 L Hct 27.3 L MCV 75 L MCH 24 L MCHC RDW 19.1 H Plt Count Lymph % (Auto) [place] % (Auto) Lymph # [place] # Seg Neutrophils % Seg Neuts % (Manual) 84.0 H Lymphocytes % (Manual) 6.0 L Monocytes % (Manual) 9.0 H Eosinophils % (Manual) Basophils % (Manual) Nucleated RBC % Seg Neutrophils # Seg Neutrophils # Man 24.7 H Lymphocytes # (Manual) Monocytes # (Manual) 2.6 H Eosinophils # (Manual) PT INR Fibrinogen dRVVT Confirm Interp Factor V Activity POC ABG pH 7.342 L POC ABG pCO2 POC ABG pO2 116 H Sodium Potassium Chloride Carbon Dioxide BUN Creatinine Glucose POC Glucose 154 H Lactic Acid Calcium Phosphorus Magnesium Direct Bilirubin ALT Alkaline Phosphatase Troponin T C-Reactive Protein Total Protein Albumin Triglycerides Cholesterol LDL Cholesterol Direct HDL Cholesterol Urine WBC (Auto) Urine Creatinine Urine Total Protein Vancomycin Trough Rheumatoid Factor Complement C4 Miscellaneous Test Crossmatch 09/14/16 09/14/16 09/14/16 04:07 05:29 12:19 WBC RBC Hgb Hct MCV MCH MCHC RDW Plt Count Lymph % (Auto) [place] % (Auto) Lymph # [place] # Seg Neutrophils % Seg Neuts % (Manual) Lymphocytes % (Manual) Monocytes % (Manual) Eosinophils % (Manual) Basophils % (Manual) Nucleated RBC % Seg Neutrophils # Seg Neutrophils # Man Lymphocytes # (Manual) Monocytes # (Manual) Eosinophils # (Manual) PT INR Fibrinogen dRVVT Confirm Interp Factor V Activity POC ABG pH POC ABG pCO2 POC ABG pO2 Sodium 136 L Potassium Chloride Carbon Dioxide 18 L BUN 121 H Creatinine 2.8 H Glucose 214 H POC Glucose 239 H 181 H Lactic Acid Calcium Phosphorus Magnesium Direct Bilirubin ALT Alkaline Phosphatase Troponin T C-Reactive Protein Total Protein Albumin Triglycerides Cholesterol LDL Cholesterol Direct HDL Cholesterol Urine WBC (Auto) Urine Creatinine Urine Total Protein Vancomycin Trough Rheumatoid Factor Complement C4 Miscellaneous Test Crossmatch 09/14/16 09/14/16 09/15/16 18:12 23:37 05:00 WBC 26.1 H RBC 3.05 L Hgb 7.2 L Hct 22.9 L MCV 75 L MCH 24 L MCHC RDW 19.0 H Plt Count Lymph % (Auto) [place] % (Auto) Lymph # [place] # Seg Neutrophils % Seg Neuts % (Manual) Lymphocytes % (Manual) Monocytes % (Manual) Eosinophils % (Manual) Basophils % (Manual) Nucleated RBC % Seg Neutrophils # Seg Neutrophils # Man Lymphocytes # (Manual) Monocytes # (Manual) Eosinophils # (Manual) PT INR Fibrinogen dRVVT Confirm Interp Factor V Activity POC ABG pH POC ABG pCO2 POC ABG pO2 Sodium Potassium Chloride Carbon Dioxide BUN Creatinine Glucose POC Glucose 266 H 154 H Lactic Acid Calcium Phosphorus Magnesium Direct Bilirubin ALT Alkaline Phosphatase Troponin T C-Reactive Protein Total Protein Albumin Triglycerides Cholesterol LDL Cholesterol Direct HDL Cholesterol Urine WBC (Auto) Urine Creatinine Urine Total Protein Vancomycin Trough Rheumatoid Factor Complement C4 Miscellaneous Test Crossmatch 09/15/16 09/15/16 09/15/16 05:00 05:17 12:45 WBC RBC Hgb Hct MCV MCH MCHC RDW Plt Count Lymph % (Auto) [place] % (Auto) Lymph # [place] # Seg Neutrophils % Seg Neuts % (Manual) Lymphocytes % (Manual) Monocytes % (Manual) Eosinophils % (Manual) Basophils % (Manual) Nucleated RBC % Seg Neutrophils # Seg Neutrophils # Man Lymphocytes # (Manual) Monocytes # (Manual) Eosinophils # (Manual) PT INR Fibrinogen dRVVT Confirm Interp Factor V Activity POC ABG pH POC ABG pCO2 POC ABG pO2 Sodium Potassium 5.2 H Chloride Carbon Dioxide 18 L BUN 139 H Creatinine 3.7 H Glucose 227 H POC Glucose 226 H 244 H Lactic Acid Calcium 8.3 L Phosphorus Magnesium Direct Bilirubin ALT Alkaline Phosphatase Troponin T C-Reactive Protein Total Protein Albumin Triglycerides Cholesterol LDL Cholesterol Direct HDL Cholesterol Urine WBC (Auto) Urine Creatinine Urine Total Protein Vancomycin Trough Rheumatoid Factor Complement C4 Miscellaneous Test Crossmatch 09/15/16 09/15/16 09/15/16 14:32 17:33 23:35 WBC RBC Hgb Hct MCV MCH MCHC RDW Plt Count Lymph % (Auto) [place] % (Auto) Lymph # [place] # Seg Neutrophils % Seg Neuts % (Manual) Lymphocytes % (Manual) Monocytes % (Manual) Eosinophils % (Manual) Basophils % (Manual) Nucleated RBC % Seg Neutrophils # Seg Neutrophils # Man Lymphocytes # (Manual) Monocytes # (Manual) Eosinophils # (Manual) PT INR Fibrinogen dRVVT Confirm Interp Factor V Activity POC ABG pH POC ABG pCO2 27.7 L POC ABG pO2 120 H Sodium Potassium Chloride Carbon Dioxide BUN Creatinine Glucose POC Glucose 232 H 167 H Lactic Acid Calcium Phosphorus Magnesium Direct Bilirubin ALT Alkaline Phosphatase Troponin T C-Reactive Protein Total Protein Albumin Triglycerides Cholesterol LDL Cholesterol Direct HDL Cholesterol Urine WBC (Auto) Urine Creatinine Urine Total Protein Vancomycin Trough Rheumatoid Factor Complement C4 Miscellaneous Test Crossmatch 09/16/16 09/16/16 09/16/16 03:58 10:27 10:27 WBC 19.0 H RBC 2.77 L Hgb 6.5 L Hct 20.9 L MCV 76 L MCH 23 L MCHC RDW 19.3 H Plt Count Lymph % (Auto) 11.0 L [place] % (Auto) Lymph # [place] # 1.1 H Seg Neutrophils % 82.5 H Seg Neuts % (Manual) Lymphocytes % (Manual) Monocytes % (Manual) Eosinophils % (Manual) Basophils % (Manual) Nucleated RBC % Seg Neutrophils # 15.7 H Seg Neutrophils # Man Lymphocytes # (Manual) Monocytes # (Manual) Eosinophils # (Manual) PT INR Fibrinogen dRVVT Confirm Interp Factor V Activity POC ABG pH POC ABG pCO2 POC ABG pO2 Sodium Potassium Chloride 109.3 H Carbon Dioxide 18 L BUN 139 H Creatinine 4.1 H Glucose 144 H POC Glucose 146 H Lactic Acid Calcium 8.1 L Phosphorus Magnesium Direct Bilirubin ALT Alkaline Phosphatase Troponin T C-Reactive Protein Total Protein Albumin Triglycerides Cholesterol LDL Cholesterol Direct HDL Cholesterol Urine WBC (Auto) Urine Creatinine Urine Total Protein Vancomycin Trough Rheumatoid Factor Complement C4 Miscellaneous Test Crossmatch 09/16/16 09/16/16 09/16/16 12:04 12:10 13:55 WBC RBC Hgb Hct MCV MCH MCHC RDW Plt Count Lymph % (Auto) [place] % (Auto) Lymph # [place] # Seg Neutrophils % Seg Neuts % (Manual) Lymphocytes % (Manual) Monocytes % (Manual) Eosinophils % (Manual) Basophils % (Manual) Nucleated RBC % Seg Neutrophils # Seg Neutrophils # Man Lymphocytes # (Manual) Monocytes # (Manual) Eosinophils # (Manual) PT INR Fibrinogen dRVVT Confirm Interp Factor V Activity POC ABG pH POC ABG pCO2 32.9 L POC ABG pO2 Sodium Potassium Chloride Carbon Dioxide BUN Creatinine Glucose POC Glucose 185 H Lactic Acid Calcium Phosphorus Magnesium Direct Bilirubin ALT Alkaline Phosphatase Troponin T C-Reactive Protein Total Protein Albumin Triglycerides Cholesterol LDL Cholesterol Direct HDL Cholesterol Urine WBC (Auto) Urine Creatinine Urine Total Protein Vancomycin Trough Rheumatoid Factor Complement C4 Miscellaneous Test Crossmatch See Detail 09/16/16 09/16/16 09/16/16 17:55 19:19 23:48 WBC RBC Hgb Hct MCV MCH MCHC RDW Plt Count Lymph % (Auto) [place] % (Auto) Lymph # [place] # Seg Neutrophils % Seg Neuts % (Manual) Lymphocytes % (Manual) Monocytes % (Manual) Eosinophils % (Manual) Basophils % (Manual) Nucleated RBC % Seg Neutrophils # Seg Neutrophils # Man Lymphocytes # (Manual) Monocytes # (Manual) Eosinophils # (Manual) PT INR Fibrinogen dRVVT Confirm Interp Factor V Activity POC ABG pH POC ABG pCO2 POC ABG pO2 Sodium Potassium Chloride Carbon Dioxide BUN Creatinine Glucose POC Glucose 222 H 107 H Lactic Acid Calcium Phosphorus Magnesium Direct Bilirubin ALT Alkaline Phosphatase Troponin T C-Reactive Protein Total Protein Albumin Triglycerides Cholesterol LDL Cholesterol Direct HDL Cholesterol Urine WBC (Auto) Urine Creatinine 47.4 H Urine Total Protein 16 H Vancomycin Trough Rheumatoid Factor Complement C4 Miscellaneous Test Crossmatch 09/17/16 09/17/16 09/17/16 03:45 03:45 04:55 WBC 19.6 H RBC 3.41 L Hgb 8.5 L Hct 26.7 L MCV 78 L MCH 25 L MCHC RDW 19.9 H Plt Count Lymph % (Auto) 9.3 L [place] % (Auto) Lymph # [place] # 1.2 H Seg Neutrophils % 83.9 H Seg Neuts % (Manual) Lymphocytes % (Manual) Monocytes % (Manual) Eosinophils % (Manual) Basophils % (Manual) Nucleated RBC % Seg Neutrophils # 16.4 H Seg Neutrophils # Man Lymphocytes # (Manual) Monocytes # (Manual) Eosinophils # (Manual) PT INR Fibrinogen dRVVT Confirm Interp Factor V Activity POC ABG pH POC ABG pCO2 POC ABG pO2 Sodium 146 H Potassium 5.1 H Chloride 110.9 H Carbon Dioxide 16 L BUN 146 H Creatinine 4.0 H Glucose 108 H POC Glucose 133 H Lactic Acid Calcium Phosphorus Magnesium 3.00 H Direct Bilirubin ALT Alkaline Phosphatase Troponin T C-Reactive Protein Total Protein Albumin Triglycerides Cholesterol LDL Cholesterol Direct HDL Cholesterol Urine WBC (Auto) Urine Creatinine Urine Total Protein Vancomycin Trough Rheumatoid Factor Complement C4 Miscellaneous Test Crossmatch 09/17/16 09/17/16 09/17/16 11:15 17:33 23:47 WBC RBC Hgb Hct MCV MCH MCHC RDW Plt Count Lymph % (Auto) [place] % (Auto) Lymph # [place] # Seg Neutrophils % Seg Neuts % (Manual) Lymphocytes % (Manual) Monocytes % (Manual) Eosinophils % (Manual) Basophils % (Manual) Nucleated RBC % Seg Neutrophils # Seg Neutrophils # Man Lymphocytes # (Manual) Monocytes # (Manual) Eosinophils # (Manual) PT INR Fibrinogen dRVVT Confirm Interp Factor V Activity POC ABG pH POC ABG pCO2 POC ABG pO2 Sodium Potassium Chloride Carbon Dioxide BUN Creatinine Glucose POC Glucose 176 H 246 H 148 H Lactic Acid Calcium Phosphorus Magnesium Direct Bilirubin ALT Alkaline Phosphatase Troponin T C-Reactive Protein Total Protein Albumin Triglycerides Cholesterol LDL Cholesterol Direct HDL Cholesterol Urine WBC (Auto) Urine Creatinine Urine Total Protein Vancomycin Trough Rheumatoid Factor Complement C4 Miscellaneous Test Crossmatch 09/18/16 09/18/16 09/18/16 05:33 08:31 08:31 WBC 18.0 H RBC 3.17 L Hgb 9.0 L Hct 25.7 L MCV MCH MCHC 35 H RDW 20.4 H Plt Count Lymph % (Auto) [place] % (Auto) Lymph # [place] # Seg Neutrophils % Seg Neuts % (Manual) Lymphocytes % (Manual) Monocytes % (Manual) Eosinophils % (Manual) Basophils % (Manual) Nucleated RBC % Seg Neutrophils # Seg Neutrophils # Man Lymphocytes # (Manual) Monocytes # (Manual) Eosinophils # (Manual) PT INR Fibrinogen dRVVT Confirm Interp Factor V Activity POC ABG pH POC ABG pCO2 POC ABG pO2 Sodium Potassium Chloride Carbon Dioxide 15 L BUN 124 H Creatinine 3.8 H Glucose POC Glucose 120 H Lactic Acid Calcium 8.1 L Phosphorus Magnesium Direct Bilirubin ALT Alkaline Phosphatase Troponin T C-Reactive Protein Total Protein Albumin Triglycerides Cholesterol LDL Cholesterol Direct HDL Cholesterol Urine WBC (Auto) Urine Creatinine Urine Total Protein Vancomycin Trough Rheumatoid Factor Complement C4 Miscellaneous Test Crossmatch 09/18/16 09/18/16 09/18/16 12:03 15:34 17:50 WBC RBC Hgb Hct MCV MCH MCHC RDW Plt Count Lymph % (Auto) [place] % (Auto) Lymph # [place] # Seg Neutrophils % Seg Neuts % (Manual) Lymphocytes % (Manual) Monocytes % (Manual) Eosinophils % (Manual) Basophils % (Manual) Nucleated RBC % Seg Neutrophils # Seg Neutrophils # Man Lymphocytes # (Manual) Monocytes # (Manual) Eosinophils # (Manual) PT INR Fibrinogen dRVVT Confirm Interp Factor V Activity POC ABG pH POC ABG pCO2 25.7 L POC ABG pO2 66 L Sodium Potassium Chloride Carbon Dioxide BUN Creatinine Glucose POC Glucose 156 H 220 H Lactic Acid Calcium Phosphorus Magnesium Direct Bilirubin ALT Alkaline Phosphatase Troponin T C-Reactive Protein Total Protein Albumin Triglycerides Cholesterol LDL Cholesterol Direct HDL Cholesterol Urine WBC (Auto) Urine Creatinine Urine Total Protein Vancomycin Trough Rheumatoid Factor Complement C4 Miscellaneous Test Crossmatch 09/19/16 09/19/16 09/19/16 06:21 09:50 09:50 WBC 17.1 H RBC 3.49 L Hgb 9.0 L Hct 28.1 L MCV MCH 26 L MCHC RDW 20.8 H Plt Count Lymph % (Auto) 11.5 L [place] % (Auto) 7.5 H Lymph # [place] # 1.3 H Seg Neutrophils % 79.8 H Seg Neuts % (Manual) Lymphocytes % (Manual) Monocytes % (Manual) Eosinophils % (Manual) Basophils % (Manual) Nucleated RBC % Seg Neutrophils # 13.7 H Seg Neutrophils # Man Lymphocytes # (Manual) Monocytes # (Manual) Eosinophils # (Manual) PT INR Fibrinogen dRVVT Confirm Interp Factor V Activity POC ABG pH POC ABG pCO2 POC ABG pO2 Sodium Potassium Chloride 108.6 H Carbon Dioxide 15 L BUN 125 H Creatinine 4.1 H Glucose 124 H POC Glucose 119 H Lactic Acid Calcium Phosphorus Magnesium Direct Bilirubin ALT Alkaline Phosphatase Troponin T C-Reactive Protein Total Protein Albumin Triglycerides Cholesterol LDL Cholesterol Direct HDL Cholesterol Urine WBC (Auto) Urine Creatinine Urine Total Protein Vancomycin Trough Rheumatoid Factor Complement C4 Miscellaneous Test Crossmatch 09/19/16 09/19/16 09/19/16 11:25 17:53 23:36 WBC RBC Hgb Hct MCV MCH MCHC RDW Plt Count Lymph % (Auto) [place] % (Auto) Lymph # [place] # Seg Neutrophils % Seg Neuts % (Manual) Lymphocytes % (Manual) Monocytes % (Manual) Eosinophils % (Manual) Basophils % (Manual) Nucleated RBC % Seg Neutrophils # Seg Neutrophils # Man Lymphocytes # (Manual) Monocytes # (Manual) Eosinophils # (Manual) PT INR Fibrinogen dRVVT Confirm Interp Factor V Activity POC ABG pH POC ABG pCO2 POC ABG pO2 Sodium Potassium Chloride Carbon Dioxide BUN Creatinine Glucose POC Glucose 160 H 245 H 121 H Lactic Acid Calcium Phosphorus Magnesium Direct Bilirubin ALT Alkaline Phosphatase Troponin T C-Reactive Protein Total Protein Albumin Triglycerides Cholesterol LDL Cholesterol Direct HDL Cholesterol Urine WBC (Auto) Urine Creatinine Urine Total Protein Vancomycin Trough Rheumatoid Factor Complement C4 Miscellaneous Test Crossmatch 09/20/16 09/20/16 09/20/16 04:10 04:10 04:10 WBC 17.0 H RBC 3.21 L Hgb 8.2 L Hct 25.5 L MCV MCH 26 L MCHC RDW 20.9 H Plt Count Lymph % (Auto) [place] % (Auto) Lymph # [place] # Seg Neutrophils % Seg Neuts % (Manual) Lymphocytes % (Manual) Monocytes % (Manual) Eosinophils % (Manual) Basophils % (Manual) Nucleated RBC % Seg Neutrophils # Seg Neutrophils # Man Lymphocytes # (Manual) Monocytes # (Manual) Eosinophils # (Manual) PT INR Fibrinogen dRVVT Confirm Interp Factor V Activity POC ABG pH POC ABG pCO2 POC ABG pO2 Sodium Potassium Chloride 111.0 H Carbon Dioxide 16 L BUN 129 H Creatinine 3.7 H Glucose 115 H POC Glucose Lactic Acid Calcium 8.2 L Phosphorus Magnesium Direct Bilirubin ALT Alkaline Phosphatase Troponin T C-Reactive Protein Total Protein Albumin Triglycerides 243 H Cholesterol LDL Cholesterol Direct HDL Cholesterol Urine WBC (Auto) Urine Creatinine Urine Total Protein Vancomycin Trough Rheumatoid Factor Complement C4 Miscellaneous Test Crossmatch 09/20/16 09/20/16 09/20/16 05:40 11:52 16:50 WBC RBC Hgb Hct MCV MCH MCHC RDW Plt Count Lymph % (Auto) [place] % (Auto) Lymph # [place] # Seg Neutrophils % Seg Neuts % (Manual) Lymphocytes % (Manual) Monocytes % (Manual) Eosinophils % (Manual) Basophils % (Manual) Nucleated RBC % Seg Neutrophils # Seg Neutrophils # Man Lymphocytes # (Manual) Monocytes # (Manual) Eosinophils # (Manual) PT INR Fibrinogen dRVVT Confirm Interp Factor V Activity POC ABG pH POC ABG pCO2 POC ABG pO2 Sodium Potassium Chloride Carbon Dioxide BUN Creatinine Glucose POC Glucose 131 H 183 H 236 H Lactic Acid Calcium Phosphorus Magnesium Direct Bilirubin ALT Alkaline Phosphatase Troponin T C-Reactive Protein Total Protein Albumin Triglycerides Cholesterol LDL Cholesterol Direct HDL Cholesterol Urine WBC (Auto) Urine Creatinine Urine Total Protein Vancomycin Trough Rheumatoid Factor Complement C4 Miscellaneous Test Crossmatch 09/20/16 09/21/16 09/21/16 23:51 03:30 04:44 WBC RBC Hgb Hct MCV MCH MCHC RDW Plt Count Lymph % (Auto) [place] % (Auto) Lymph # [place] # Seg Neutrophils % Seg Neuts % (Manual) Lymphocytes % (Manual) Monocytes % (Manual) Eosinophils % (Manual) Basophils % (Manual) Nucleated RBC % Seg Neutrophils # Seg Neutrophils # Man Lymphocytes # (Manual) Monocytes # (Manual) Eosinophils # (Manual) PT INR Fibrinogen dRVVT Confirm Interp Factor V Activity POC ABG pH POC ABG pCO2 POC ABG pO2 Sodium Potassium Chloride Carbon Dioxide BUN Creatinine Glucose POC Glucose 114 H 141 H Lactic Acid Calcium Phosphorus Magnesium 2.70 H Direct Bilirubin ALT Alkaline Phosphatase Troponin T C-Reactive Protein Total Protein Albumin Triglycerides Cholesterol LDL Cholesterol Direct HDL Cholesterol Urine WBC (Auto) Urine Creatinine Urine Total Protein Vancomycin Trough Rheumatoid Factor Complement C4 Miscellaneous Test Crossmatch 09/21/16 09/21/16 09/21/16 07:45 07:45 10:01 WBC 13.8 H RBC 2.94 L Hgb 7.5 L Hct 23.5 L MCV MCH 26 L MCHC RDW 21.2 H Plt Count Lymph % (Auto) 6.9 L [place] % (Auto) 9.4 H Lymph # 0.9 L [place] # 1.3 H Seg Neutrophils % 83.2 H Seg Neuts % (Manual) Lymphocytes % (Manual) Monocytes % (Manual) Eosinophils % (Manual) Basophils % (Manual) Nucleated RBC % Seg Neutrophils # 11.5 H Seg Neutrophils # Man Lymphocytes # (Manual) Monocytes # (Manual) Eosinophils # (Manual) PT INR Fibrinogen dRVVT Confirm Interp Factor V Activity POC ABG pH 7.308 L POC ABG pCO2 31.9 L POC ABG pO2 148 H Sodium 147 H Potassium Chloride 114.2 H Carbon Dioxide 15 L BUN 120 H Creatinine 3.9 H Glucose 156 H POC Glucose Lactic Acid Calcium 8.2 L Phosphorus Magnesium Direct Bilirubin ALT Alkaline Phosphatase Troponin T C-Reactive Protein Total Protein Albumin Triglycerides Cholesterol LDL Cholesterol Direct HDL Cholesterol Urine WBC (Auto) Urine Creatinine Urine Total Protein Vancomycin Trough Rheumatoid Factor Complement C4 Miscellaneous Test Crossmatch 09/21/16 09/21/16 09/21/16 12:00 12:03 13:00 WBC RBC Hgb Hct MCV MCH MCHC RDW Plt Count Lymph % (Auto) [place] % (Auto) Lymph # [place] # Seg Neutrophils % Seg Neuts % (Manual) Lymphocytes % (Manual) Monocytes % (Manual) Eosinophils % (Manual) Basophils % (Manual) Nucleated RBC % Seg Neutrophils # Seg Neutrophils # Man Lymphocytes # (Manual) Monocytes # (Manual) Eosinophils # (Manual) PT INR Fibrinogen dRVVT Confirm Interp Factor V Activity POC ABG pH POC ABG pCO2 POC ABG pO2 Sodium Potassium Chloride Carbon Dioxide BUN Creatinine Glucose POC Glucose 163 H Lactic Acid Calcium Phosphorus Magnesium Direct Bilirubin ALT Alkaline Phosphatase Troponin T C-Reactive Protein Total Protein Albumin Triglycerides Cholesterol LDL Cholesterol Direct HDL Cholesterol Urine WBC (Auto) Urine Creatinine 54.8 H Urine Total Protein Vancomycin Trough 2.3 L Rheumatoid Factor Complement C4 Miscellaneous Test Crossmatch 09/21/16 09/21/16 09/22/16 16:51 23:17 06:27 WBC RBC Hgb Hct MCV MCH MCHC RDW Plt Count Lymph % (Auto) [place] % (Auto) Lymph # [place] # Seg Neutrophils % Seg Neuts % (Manual) Lymphocytes % (Manual) Monocytes % (Manual) Eosinophils % (Manual) Basophils % (Manual) Nucleated RBC % Seg Neutrophils # Seg Neutrophils # Man Lymphocytes # (Manual) Monocytes # (Manual) Eosinophils # (Manual) PT INR Fibrinogen dRVVT Confirm Interp Factor V Activity POC ABG pH POC ABG pCO2 POC ABG pO2 Sodium Potassium Chloride Carbon Dioxide BUN Creatinine Glucose POC Glucose 206 H 114 H 115 H Lactic Acid Calcium Phosphorus Magnesium Direct Bilirubin ALT Alkaline Phosphatase Troponin T C-Reactive Protein Total Protein Albumin Triglycerides Cholesterol LDL Cholesterol Direct HDL Cholesterol Urine WBC (Auto) Urine Creatinine Urine Total Protein Vancomycin Trough Rheumatoid Factor Complement C4 Miscellaneous Test Crossmatch 09/22/16 09/22/16 09/22/16 07:50 07:50 12:00 WBC 17.8 H RBC 3.04 L Hgb 8.0 L Hct 24.7 L MCV MCH 26 L MCHC RDW 21.6 H Plt Count Lymph % (Auto) [place] % (Auto) Lymph # [place] # Seg Neutrophils % Seg Neuts % (Manual) Lymphocytes % (Manual) Monocytes % (Manual) Eosinophils % (Manual) Basophils % (Manual) Nucleated RBC % Seg Neutrophils # Seg Neutrophils # Man Lymphocytes # (Manual) Monocytes # (Manual) Eosinophils # (Manual) PT INR Fibrinogen dRVVT Confirm Interp Factor V Activity POC ABG pH POC ABG pCO2 POC ABG pO2 Sodium 150 H Potassium Chloride 118.2 H Carbon Dioxide 14 L BUN 111 H Creatinine 3.7 H Glucose 157 H POC Glucose 183 H Lactic Acid Calcium Phosphorus Magnesium Direct Bilirubin ALT Alkaline Phosphatase Troponin T C-Reactive Protein Total Protein Albumin Triglycerides Cholesterol LDL Cholesterol Direct HDL Cholesterol Urine WBC (Auto) Urine Creatinine Urine Total Protein Vancomycin Trough Rheumatoid Factor Complement C4 Miscellaneous Test Crossmatch 09/22/16 09/22/16 09/23/16 17:29 23:10 05:00 WBC 19.2 H RBC 3.13 L Hgb 8.0 L Hct 25.2 L MCV MCH 26 L MCHC RDW 22.1 H Plt Count Lymph % (Auto) [place] % (Auto) Lymph # [place] # Seg Neutrophils % Seg Neuts % (Manual) 92.0 H Lymphocytes % (Manual) 3.0 L Monocytes % (Manual) Eosinophils % (Manual) Basophils % (Manual) Nucleated RBC % Seg Neutrophils # Seg Neutrophils # Man 17.7 H Lymphocytes # (Manual) 0.6 L Monocytes # (Manual) Eosinophils # (Manual) PT INR Fibrinogen dRVVT Confirm Interp Factor V Activity POC ABG pH POC ABG pCO2 POC ABG pO2 Sodium Potassium Chloride Carbon Dioxide BUN Creatinine Glucose POC Glucose 197 H 169 H Lactic Acid Calcium Phosphorus Magnesium Direct Bilirubin ALT Alkaline Phosphatase Troponin T C-Reactive Protein Total Protein Albumin Triglycerides Cholesterol LDL Cholesterol Direct HDL Cholesterol Urine WBC (Auto) Urine Creatinine Urine Total Protein Vancomycin Trough Rheumatoid Factor Complement C4 Miscellaneous Test Crossmatch 09/23/16 09/23/16 09/23/16 05:00 05:00 05:10 WBC RBC Hgb Hct MCV MCH MCHC RDW Plt Count Lymph % (Auto) [place] % (Auto) Lymph # [place] # Seg Neutrophils % Seg Neuts % (Manual) Lymphocytes % (Manual) Monocytes % (Manual) Eosinophils % (Manual) Basophils % (Manual) Nucleated RBC % Seg Neutrophils # Seg Neutrophils # Man Lymphocytes # (Manual) Monocytes # (Manual) Eosinophils # (Manual) PT INR Fibrinogen dRVVT Confirm Interp Factor V Activity POC ABG pH POC ABG pCO2 POC ABG pO2 Sodium 147 H Potassium 3.2 L Chloride 115.7 H Carbon Dioxide 13 L BUN 111 H Creatinine 3.8 H Glucose 194 H POC Glucose 188 H Lactic Acid Calcium 7.3 L D Phosphorus Magnesium Direct Bilirubin ALT Alkaline Phosphatase Troponin T C-Reactive Protein 3.20 H Total Protein Albumin Triglycerides Cholesterol LDL Cholesterol Direct HDL Cholesterol Urine WBC (Auto) Urine Creatinine Urine Total Protein Vancomycin Trough Rheumatoid Factor Complement C4 Miscellaneous Test Crossmatch 09/23/16 09/23/16 09/23/16 11:37 12:29 18:01 WBC RBC Hgb Hct MCV MCH MCHC RDW Plt Count Lymph % (Auto) [place] % (Auto) Lymph # [place] # Seg Neutrophils % Seg Neuts % (Manual) Lymphocytes % (Manual) Monocytes % (Manual) Eosinophils % (Manual) Basophils % (Manual) Nucleated RBC % Seg Neutrophils # Seg Neutrophils # Man Lymphocytes # (Manual) Monocytes # (Manual) Eosinophils # (Manual) PT INR Fibrinogen dRVVT Confirm Interp Factor V Activity POC ABG pH POC ABG pCO2 18.9 L POC ABG pO2 143 H Sodium Potassium Chloride Carbon Dioxide BUN Creatinine Glucose POC Glucose 153 H 108 H Lactic Acid Calcium Phosphorus Magnesium Direct Bilirubin ALT Alkaline Phosphatase Troponin T C-Reactive Protein Total Protein Albumin Triglycerides Cholesterol LDL Cholesterol Direct HDL Cholesterol Urine WBC (Auto) Urine Creatinine Urine Total Protein Vancomycin Trough Rheumatoid Factor Complement C4 Miscellaneous Test Crossmatch 09/23/16 09/23/16 09/24/16 21:19 23:43 05:16 WBC RBC Hgb Hct MCV MCH MCHC RDW Plt Count Lymph % (Auto) [place] % (Auto) Lymph # [place] # Seg Neutrophils % Seg Neuts % (Manual) Lymphocytes % (Manual) Monocytes % (Manual) Eosinophils % (Manual) Basophils % (Manual) Nucleated RBC % Seg Neutrophils # Seg Neutrophils # Man Lymphocytes # (Manual) Monocytes # (Manual) Eosinophils # (Manual) PT INR Fibrinogen dRVVT Confirm Interp Factor V Activity POC ABG pH POC ABG pCO2 17.3 L POC ABG pO2 112 H Sodium Potassium Chloride Carbon Dioxide BUN Creatinine Glucose POC Glucose 143 H 164 H Lactic Acid Calcium Phosphorus Magnesium Direct Bilirubin ALT Alkaline Phosphatase Troponin T C-Reactive Protein Total Protein Albumin Triglycerides Cholesterol LDL Cholesterol Direct HDL Cholesterol Urine WBC (Auto) Urine Creatinine Urine Total Protein Vancomycin Trough Rheumatoid Factor Complement C4 Miscellaneous Test Crossmatch 09/24/16 09/24/16 09/24/16 05:21 11:58 17:06 WBC RBC Hgb Hct MCV MCH MCHC RDW Plt Count Lymph % (Auto) [place] % (Auto) Lymph # [place] # Seg Neutrophils % Seg Neuts % (Manual) Lymphocytes % (Manual) Monocytes % (Manual) Eosinophils % (Manual) Basophils % (Manual) Nucleated RBC % Seg Neutrophils # Seg Neutrophils # Man Lymphocytes # (Manual) Monocytes # (Manual) Eosinophils # (Manual) PT INR Fibrinogen dRVVT Confirm Interp Factor V Activity POC ABG pH POC ABG pCO2 POC ABG pO2 Sodium Potassium Chloride Carbon Dioxide 10 L BUN 103 H Creatinine 4.3 H Glucose 163 H POC Glucose 173 H 167 H Lactic Acid Calcium 6.5 L Phosphorus Magnesium Direct Bilirubin ALT Alkaline Phosphatase Troponin T C-Reactive Protein Total Protein Albumin Triglycerides Cholesterol LDL Cholesterol Direct HDL Cholesterol Urine WBC (Auto) Urine Creatinine Urine Total Protein Vancomycin Trough Rheumatoid Factor Complement C4 Miscellaneous Test Crossmatch 09/24/16 09/24/16 09/24/16 20:15 21:02 23:48 WBC RBC Hgb Hct MCV MCH MCHC RDW Plt Count Lymph % (Auto) [place] % (Auto) Lymph # [place] # Seg Neutrophils % Seg Neuts % (Manual) Lymphocytes % (Manual) Monocytes % (Manual) Eosinophils % (Manual) Basophils % (Manual) Nucleated RBC % Seg Neutrophils # Seg Neutrophils # Man Lymphocytes # (Manual) Monocytes # (Manual) Eosinophils # (Manual) PT INR Fibrinogen dRVVT Confirm Interp Factor V Activity POC ABG pH 7.288 L POC ABG pCO2 30.2 L 21.5 L POC ABG pO2 32 L 39 L Sodium Potassium Chloride Carbon Dioxide BUN Creatinine Glucose POC Glucose 109 H Lactic Acid Calcium Phosphorus Magnesium Direct Bilirubin ALT Alkaline Phosphatase Troponin T C-Reactive Protein Total Protein Albumin Triglycerides Cholesterol LDL Cholesterol Direct HDL Cholesterol Urine WBC (Auto) Urine Creatinine Urine Total Protein Vancomycin Trough Rheumatoid Factor Complement C4 Miscellaneous Test Crossmatch 09/25/16 09/25/16 09/25/16 04:20 04:20 04:20 WBC RBC 2.58 L Hgb 7.0 L Hct 21.0 L MCV MCH 27 L MCHC RDW 23.8 H Plt Count Lymph % (Auto) [place] % (Auto) Lymph # [place] # Seg Neutrophils % Seg Neuts % (Manual) Lymphocytes % (Manual) 12.0 L Monocytes % (Manual) Eosinophils % (Manual) 7.0 H Basophils % (Manual) 2.0 H Nucleated RBC % Seg Neutrophils # Seg Neutrophils # Man Lymphocytes # (Manual) 0.9 L Monocytes # (Manual) Eosinophils # (Manual) 0.5 H PT INR Fibrinogen dRVVT Confirm Interp Factor V Activity POC ABG pH POC ABG pCO2 POC ABG pO2 Sodium Potassium Chloride Carbon Dioxide 15 L BUN 72 H Creatinine 3.8 H Glucose POC Glucose Lactic Acid Calcium 6.0 L Phosphorus 4.60 H Magnesium 1.60 L Direct Bilirubin ALT Alkaline Phosphatase Troponin T C-Reactive Protein Total Protein Albumin Triglycerides Cholesterol LDL Cholesterol Direct HDL Cholesterol Urine WBC (Auto) Urine Creatinine Urine Total Protein Vancomycin Trough Rheumatoid Factor Complement C4 Miscellaneous Test Crossmatch 09/25/16 09/25/16 09/25/16 04:57 08:02 10:30 WBC RBC Hgb Hct MCV MCH MCHC RDW Plt Count Lymph % (Auto) [place] % (Auto) Lymph # [place] # Seg Neutrophils % Seg Neuts % (Manual) Lymphocytes % (Manual) Monocytes % (Manual) Eosinophils % (Manual) Basophils % (Manual) Nucleated RBC % Seg Neutrophils # Seg Neutrophils # Man Lymphocytes # (Manual) Monocytes # (Manual) Eosinophils # (Manual) PT INR Fibrinogen dRVVT Confirm Interp Factor V Activity POC ABG pH POC ABG pCO2 24.7 L POC ABG pO2 152 H Sodium Potassium Chloride Carbon Dioxide BUN Creatinine Glucose POC Glucose 113 H Lactic Acid Calcium Phosphorus Magnesium Direct Bilirubin ALT Alkaline Phosphatase Troponin T C-Reactive Protein Total Protein Albumin Triglycerides Cholesterol LDL Cholesterol Direct HDL Cholesterol Urine WBC (Auto) Urine Creatinine Urine Total Protein Vancomycin Trough Rheumatoid Factor Complement C4 Miscellaneous Test Crossmatch See Detail 09/25/16 09/25/16 09/25/16 12:05 17:44 23:47 WBC RBC Hgb Hct MCV MCH MCHC RDW Plt Count Lymph % (Auto) [place] % (Auto) Lymph # [place] # Seg Neutrophils % Seg Neuts % (Manual) Lymphocytes % (Manual) Monocytes % (Manual) Eosinophils % (Manual) Basophils % (Manual) Nucleated RBC % Seg Neutrophils # Seg Neutrophils # Man Lymphocytes # (Manual) Monocytes # (Manual) Eosinophils # (Manual) PT INR Fibrinogen dRVVT Confirm Interp Factor V Activity POC ABG pH POC ABG pCO2 POC ABG pO2 Sodium Potassium Chloride Carbon Dioxide BUN Creatinine Glucose POC Glucose 117 H 119 H 150 H Lactic Acid Calcium Phosphorus Magnesium Direct Bilirubin ALT Alkaline Phosphatase Troponin T C-Reactive Protein Total Protein Albumin Triglycerides Cholesterol LDL Cholesterol Direct HDL Cholesterol Urine WBC (Auto) Urine Creatinine Urine Total Protein Vancomycin Trough Rheumatoid Factor Complement C4 Miscellaneous Test Crossmatch 09/26/16 09/26/16 09/26/16 04:25 04:25 04:25 WBC RBC 2.65 L Hgb 7.4 L Hct 21.6 L MCV MCH MCHC RDW 22.5 H Plt Count Lymph % (Auto) [place] % (Auto) Lymph # [place] # Seg Neutrophils % Seg Neuts % (Manual) Lymphocytes % (Manual) 6.0 L Monocytes % (Manual) Eosinophils % (Manual) 11.0 H Basophils % (Manual) Nucleated RBC % Seg Neutrophils # Seg Neutrophils # Man Lymphocytes # (Manual) 0.4 L Monocytes # (Manual) Eosinophils # (Manual) 0.6 H PT INR Fibrinogen dRVVT Confirm Interp Factor V Activity POC ABG pH POC ABG pCO2 POC ABG pO2 Sodium Potassium Chloride 97.0 L Carbon Dioxide 19 L BUN 43 H Creatinine 2.6 H Glucose 130 H POC Glucose Lactic Acid 4.40 H* Calcium 6.7 L Phosphorus Magnesium Direct Bilirubin ALT Alkaline Phosphatase Troponin T C-Reactive Protein Total Protein Albumin Triglycerides Cholesterol LDL Cholesterol Direct HDL Cholesterol Urine WBC (Auto) Urine Creatinine Urine Total Protein Vancomycin Trough Rheumatoid Factor Complement C4 Miscellaneous Test Crossmatch 09/26/16 09/26/16 09/26/16 05:20 11:44 12:12 WBC RBC Hgb Hct MCV MCH MCHC RDW Plt Count Lymph % (Auto) [place] % (Auto) Lymph # [place] # Seg Neutrophils % Seg Neuts % (Manual) Lymphocytes % (Manual) Monocytes % (Manual) Eosinophils % (Manual) Basophils % (Manual) Nucleated RBC % Seg Neutrophils # Seg Neutrophils # Man Lymphocytes # (Manual) Monocytes # (Manual) Eosinophils # (Manual) PT INR Fibrinogen dRVVT Confirm Interp Factor V Activity POC ABG pH POC ABG pCO2 27.0 L POC ABG pO2 69 L Sodium Potassium Chloride Carbon Dioxide BUN Creatinine Glucose POC Glucose 121 H 128 H Lactic Acid Calcium Phosphorus Magnesium Direct Bilirubin ALT Alkaline Phosphatase Troponin T C-Reactive Protein Total Protein Albumin Triglycerides Cholesterol LDL Cholesterol Direct HDL Cholesterol Urine WBC (Auto) Urine Creatinine Urine Total Protein Vancomycin Trough Rheumatoid Factor Complement C4 Miscellaneous Test Crossmatch 09/26/16 09/26/16 09/27/16 18:31 23:40 08:20 WBC RBC Hgb Hct MCV MCH MCHC RDW Plt Count Lymph % (Auto) [place] % (Auto) Lymph # [place] # Seg Neutrophils % Seg Neuts % (Manual) Lymphocytes % (Manual) Monocytes % (Manual) Eosinophils % (Manual) Basophils % (Manual) Nucleated RBC % Seg Neutrophils # Seg Neutrophils # Man Lymphocytes # (Manual) Monocytes # (Manual) Eosinophils # (Manual) PT INR Fibrinogen dRVVT Confirm Interp Factor V Activity POC ABG pH POC ABG pCO2 POC ABG pO2 Sodium Potassium Chloride Carbon Dioxide BUN Creatinine Glucose POC Glucose 120 H 133 H Lactic Acid 4.10 H* Calcium Phosphorus Magnesium Direct Bilirubin ALT Alkaline Phosphatase Troponin T C-Reactive Protein Total Protein Albumin Triglycerides Cholesterol LDL Cholesterol Direct HDL Cholesterol Urine WBC (Auto) Urine Creatinine Urine Total Protein Vancomycin Trough Rheumatoid Factor Complement C4 Miscellaneous Test Crossmatch 09/27/16 09/27/16 09/27/16 11:23 15:00 18:15 WBC RBC Hgb Hct MCV MCH MCHC RDW Plt Count Lymph % (Auto) [place] % (Auto) Lymph # [place] # Seg Neutrophils % Seg Neuts % (Manual) Lymphocytes % (Manual) Monocytes % (Manual) Eosinophils % (Manual) Basophils % (Manual) Nucleated RBC % Seg Neutrophils # Seg Neutrophils # Man Lymphocytes # (Manual) Monocytes # (Manual) Eosinophils # (Manual) PT INR Fibrinogen dRVVT Confirm Interp Factor V Activity POC ABG pH 7.459 H POC ABG pCO2 27.1 L POC ABG pO2 140 H Sodium Potassium Chloride Carbon Dioxide BUN Creatinine Glucose POC Glucose 114 H 127 H Lactic Acid Calcium Phosphorus Magnesium Direct Bilirubin ALT Alkaline Phosphatase Troponin T C-Reactive Protein Total Protein Albumin Triglycerides Cholesterol LDL Cholesterol Direct HDL Cholesterol Urine WBC (Auto) Urine Creatinine Urine Total Protein Vancomycin Trough Rheumatoid Factor Complement C4 Miscellaneous Test Crossmatch 09/27/16 09/27/16 09/28/16 Unknown Unknown 03:45 WBC RBC 2.49 L Hgb 6.8 L Hct 20.7 L MCV MCH 27 L MCHC RDW 22.1 H Plt Count Lymph % (Auto) [place] % (Auto) Lymph # [place] # Seg Neutrophils % Seg Neuts % (Manual) 32.0 L Lymphocytes % (Manual) 12.0 L Monocytes % (Manual) 11.0 H Eosinophils % (Manual) 10.0 H Basophils % (Manual) Nucleated RBC % Seg Neutrophils # Seg Neutrophils # Man Lymphocytes # (Manual) 1.0 L Monocytes # (Manual) 0.9 H Eosinophils # (Manual) 0.8 H PT INR Fibrinogen dRVVT Confirm Interp Factor V Activity POC ABG pH POC ABG pCO2 POC ABG pO2 Sodium 135 L 135 L Potassium 3.5 L Chloride 93.6 L 94.4 L Carbon Dioxide 17 L 21 L BUN 45 H 28 H Creatinine 3.3 H 2.5 H Glucose 106 H POC Glucose Lactic Acid Calcium 7.3 L 7.1 L Phosphorus Magnesium Direct Bilirubin ALT Alkaline Phosphatase Troponin T C-Reactive Protein Total Protein Albumin Triglycerides Cholesterol LDL Cholesterol Direct HDL Cholesterol Urine WBC (Auto) Urine Creatinine Urine Total Protein Vancomycin Trough Rheumatoid Factor Complement C4 Miscellaneous Test Crossmatch 09/28/16 09/28/16 09/28/16 03:45 07:25 11:58 WBC 13.3 H RBC 3.01 L Hgb 8.4 L Hct 25.0 L MCV MCH MCHC RDW 20.5 H Plt Count 128 L Lymph % (Auto) [place] % (Auto) Lymph # [place] # Seg Neutrophils % Seg Neuts % (Manual) Lymphocytes % (Manual) 7.0 L Monocytes % (Manual) Eosinophils % (Manual) 6.0 H Basophils % (Manual) Nucleated RBC % Seg Neutrophils # Seg Neutrophils # Man Lymphocytes # (Manual) 0.9 L Monocytes # (Manual) Eosinophils # (Manual) 0.8 H PT INR Fibrinogen dRVVT Confirm Interp Factor V Activity POC ABG pH POC ABG pCO2 POC ABG pO2 Sodium Potassium Chloride Carbon Dioxide BUN Creatinine Glucose POC Glucose 121 H Lactic Acid 4.50 H* Calcium Phosphorus Magnesium Direct Bilirubin ALT Alkaline Phosphatase Troponin T C-Reactive Protein Total Protein Albumin Triglycerides Cholesterol LDL Cholesterol Direct HDL Cholesterol Urine WBC (Auto) Urine Creatinine Urine Total Protein Vancomycin Trough Rheumatoid Factor Complement C4 Miscellaneous Test Crossmatch 09/29/16 09/29/16 09/29/16 06:45 06:45 06:45 WBC 14.9 H RBC 2.74 L Hgb 7.6 L Hct 23.2 L MCV MCH MCHC RDW 20.5 H Plt Count 81 L Lymph % (Auto) [place] % (Auto) Lymph # [place] # Seg Neutrophils % Seg Neuts % (Manual) 81.0 H Lymphocytes % (Manual) 4.0 L Monocytes % (Manual) Eosinophils % (Manual) Basophils % (Manual) Nucleated RBC % Seg Neutrophils # Seg Neutrophils # Man 12.1 H Lymphocytes # (Manual) 0.6 L Monocytes # (Manual) Eosinophils # (Manual) PT INR Fibrinogen dRVVT Confirm Interp Factor V Activity POC ABG pH POC ABG pCO2 POC ABG pO2 Sodium 133 L Potassium 3.4 L Chloride 92.5 L Carbon Dioxide 21 L BUN 33 H Creatinine 3.0 H Glucose POC Glucose Lactic Acid Calcium 6.6 L Phosphorus Magnesium 1.40 L Direct Bilirubin 0.9 H ALT Alkaline Phosphatase Troponin T C-Reactive Protein Total Protein 4.3 L Albumin 1.3 L Triglycerides Cholesterol LDL Cholesterol Direct HDL Cholesterol Urine WBC (Auto) Urine Creatinine Urine Total Protein Vancomycin Trough Rheumatoid Factor Complement C4 Miscellaneous Test Crossmatch 09/29/16 09/29/16 09/30/16 17:52 20:12 00:07 WBC RBC Hgb Hct MCV MCH MCHC RDW Plt Count Lymph % (Auto) [place] % (Auto) Lymph # [place] # Seg Neutrophils % Seg Neuts % (Manual) Lymphocytes % (Manual) Monocytes % (Manual) Eosinophils % (Manual) Basophils % (Manual) Nucleated RBC % Seg Neutrophils # Seg Neutrophils # Man Lymphocytes # (Manual) Monocytes # (Manual) Eosinophils # (Manual) PT INR Fibrinogen dRVVT Confirm Interp Factor V Activity POC ABG pH POC ABG pCO2 POC ABG pO2 Sodium Potassium Chloride Carbon Dioxide BUN Creatinine Glucose POC Glucose 50 L 51 L Lactic Acid Calcium Phosphorus Magnesium Direct Bilirubin ALT Alkaline Phosphatase Troponin T 0.204 H* C-Reactive Protein Total Protein Albumin Triglycerides Cholesterol 31 L LDL Cholesterol Direct 4 L HDL Cholesterol 3 L Urine WBC (Auto) Urine Creatinine Urine Total Protein Vancomycin Trough Rheumatoid Factor Complement C4 Miscellaneous Test Crossmatch 09/30/16 09/30/16 09/30/16 01:30 05:15 06:10 WBC RBC Hgb Hct MCV MCH MCHC RDW Plt Count Lymph % (Auto) [place] % (Auto) Lymph # [place] # Seg Neutrophils % Seg Neuts % (Manual) Lymphocytes % (Manual) Monocytes % (Manual) Eosinophils % (Manual) Basophils % (Manual) Nucleated RBC % Seg Neutrophils # Seg Neutrophils # Man Lymphocytes # (Manual) Monocytes # (Manual) Eosinophils # (Manual) PT INR Fibrinogen dRVVT Confirm Interp Factor V Activity POC ABG pH POC ABG pCO2 POC ABG pO2 Sodium 133 L Potassium 3.2 L Chloride 93.2 L Carbon Dioxide 19 L BUN 36 H Creatinine 3.2 H Glucose 104 H POC Glucose 167 H 146 H Lactic Acid Calcium 6.4 L Phosphorus Magnesium 1.60 L Direct Bilirubin ALT Alkaline Phosphatase Troponin T C-Reactive Protein Total Protein Albumin Triglycerides Cholesterol LDL Cholesterol Direct HDL Cholesterol Urine WBC (Auto) Urine Creatinine Urine Total Protein Vancomycin Trough Rheumatoid Factor Complement C4 Miscellaneous Test Crossmatch 09/30/16 09/30/16 09/30/16 11:26 13:39 18:38 WBC RBC Hgb Hct MCV MCH MCHC RDW Plt Count Lymph % (Auto) [place] % (Auto) Lymph # [place] # Seg Neutrophils % Seg Neuts % (Manual) Lymphocytes % (Manual) Monocytes % (Manual) Eosinophils % (Manual) Basophils % (Manual) Nucleated RBC % Seg Neutrophils # Seg Neutrophils # Man Lymphocytes # (Manual) Monocytes # (Manual) Eosinophils # (Manual) PT INR Fibrinogen dRVVT Confirm Interp Factor V Activity POC ABG pH 7.479 H POC ABG pCO2 29.8 L POC ABG pO2 117 H Sodium Potassium Chloride Carbon Dioxide BUN Creatinine Glucose POC Glucose 140 H 122 H Lactic Acid Calcium Phosphorus Magnesium Direct Bilirubin ALT Alkaline Phosphatase Troponin T C-Reactive Protein Total Protein Albumin Triglycerides Cholesterol LDL Cholesterol Direct HDL Cholesterol Urine WBC (Auto) Urine Creatinine Urine Total Protein Vancomycin Trough Rheumatoid Factor Complement C4 Miscellaneous Test Crossmatch 10/01/16 10/01/16 10/01/16 06:00 06:00 12:37 WBC 12.6 H RBC 2.75 L Hgb 7.3 L Hct 23.3 L MCV MCH 27 L MCHC RDW 20.6 H Plt Count 72 L Lymph % (Auto) [place] % (Auto) Lymph # [place] # Seg Neutrophils % Seg Neuts % (Manual) 31.0 L Lymphocytes % (Manual) 8.0 L Monocytes % (Manual) Eosinophils % (Manual) Basophils % (Manual) Nucleated RBC % 3.0 H Seg Neutrophils # Seg Neutrophils # Man Lymphocytes # (Manual) 1.0 L Monocytes # (Manual) Eosinophils # (Manual) PT INR Fibrinogen dRVVT Confirm Interp Factor V Activity POC ABG pH POC ABG pCO2 POC ABG pO2 Sodium 127 L Potassium Chloride 86.8 L Carbon Dioxide 20 L BUN 42 H Creatinine 3.5 H Glucose POC Glucose 65 L Lactic Acid Calcium 7.0 L Phosphorus Magnesium Direct Bilirubin ALT Alkaline Phosphatase Troponin T C-Reactive Protein Total Protein Albumin Triglycerides Cholesterol LDL Cholesterol Direct HDL Cholesterol Urine WBC (Auto) Urine Creatinine Urine Total Protein Vancomycin Trough Rheumatoid Factor Complement C4 Miscellaneous Test Crossmatch 10/01/16 10/01/16 10/02/16 17:39 23:32 00:59 WBC RBC Hgb Hct MCV MCH MCHC RDW Plt Count Lymph % (Auto) [place] % (Auto) Lymph # [place] # Seg Neutrophils % Seg Neuts % (Manual) Lymphocytes % (Manual) Monocytes % (Manual) Eosinophils % (Manual) Basophils % (Manual) Nucleated RBC % Seg Neutrophils # Seg Neutrophils # Man Lymphocytes # (Manual) Monocytes # (Manual) Eosinophils # (Manual) PT INR Fibrinogen dRVVT Confirm Interp Factor V Activity POC ABG pH POC ABG pCO2 POC ABG pO2 Sodium Potassium Chloride Carbon Dioxide BUN Creatinine Glucose POC Glucose 107 H 52 L 145 H Lactic Acid Calcium Phosphorus Magnesium Direct Bilirubin ALT Alkaline Phosphatase Troponin T C-Reactive Protein Total Protein Albumin Triglycerides Cholesterol LDL Cholesterol Direct HDL Cholesterol Urine WBC (Auto) Urine Creatinine Urine Total Protein Vancomycin Trough Rheumatoid Factor Complement C4 Miscellaneous Test Crossmatch 10/02/16 10/02/16 10/02/16 10:30 10:50 10:50 WBC 14.7 H RBC 2.76 L Hgb 7.4 L Hct 23.6 L MCV MCH 27 L MCHC RDW 20.2 H Plt Count 79 L Lymph % (Auto) [place] % (Auto) Lymph # [place] # Seg Neutrophils % Seg Neuts % (Manual) 86.0 H Lymphocytes % (Manual) 6.0 L Monocytes % (Manual) Eosinophils % (Manual) Basophils % (Manual) Nucleated RBC % Seg Neutrophils # Seg Neutrophils # Man 12.6 H Lymphocytes # (Manual) 0.9 L Monocytes # (Manual) Eosinophils # (Manual) PT INR Fibrinogen dRVVT Confirm Interp Factor V Activity POC ABG pH 7.486 H POC ABG pCO2 30.1 L POC ABG pO2 108 H Sodium 131 L Potassium 3.4 L Chloride 89.9 L Carbon Dioxide BUN 26 H Creatinine 2.6 H Glucose POC Glucose Lactic Acid Calcium 7.0 L Phosphorus Magnesium Direct Bilirubin ALT Alkaline Phosphatase Troponin T C-Reactive Protein Total Protein Albumin Triglycerides Cholesterol LDL Cholesterol Direct HDL Cholesterol Urine WBC (Auto) Urine Creatinine Urine Total Protein Vancomycin Trough Rheumatoid Factor Complement C4 Miscellaneous Test Crossmatch 10/02/16 10/03/16 10/03/16 23:45 00:45 05:10 WBC 12.9 H RBC 2.77 L Hgb 7.6 L Hct 23.7 L MCV MCH 27 L MCHC RDW 19.7 H Plt Count 89 L Lymph % (Auto) [place] % (Auto) Lymph # [place] # Seg Neutrophils % Seg Neuts % (Manual) Lymphocytes % (Manual) 8.0 L Monocytes % (Manual) Eosinophils % (Manual) Basophils % (Manual) Nucleated RBC % Seg Neutrophils # 11.9 H Seg Neutrophils # Man Lymphocytes # (Manual) 1.0 L Monocytes # (Manual) Eosinophils # (Manual) PT INR Fibrinogen dRVVT Confirm Interp Factor V Activity POC ABG pH POC ABG pCO2 POC ABG pO2 Sodium Potassium Chloride Carbon Dioxide BUN Creatinine Glucose POC Glucose 55 L 199 H Lactic Acid Calcium Phosphorus Magnesium Direct Bilirubin ALT Alkaline Phosphatase Troponin T C-Reactive Protein Total Protein Albumin Triglycerides Cholesterol LDL Cholesterol Direct HDL Cholesterol Urine WBC (Auto) Urine Creatinine Urine Total Protein Vancomycin Trough Rheumatoid Factor Complement C4 Miscellaneous Test Crossmatch 10/03/16 10/03/16 10/03/16 05:10 12:14 13:18 WBC RBC Hgb Hct MCV MCH MCHC RDW Plt Count Lymph % (Auto) [place] % (Auto) Lymph # [place] # Seg Neutrophils % Seg Neuts % (Manual) Lymphocytes % (Manual) Monocytes % (Manual) Eosinophils % (Manual) Basophils % (Manual) Nucleated RBC % Seg Neutrophils # Seg Neutrophils # Man Lymphocytes # (Manual) Monocytes # (Manual) Eosinophils # (Manual) PT INR Fibrinogen dRVVT Confirm Interp Factor V Activity POC ABG pH POC ABG pCO2 POC ABG pO2 Sodium 129 L Potassium 3.3 L Chloride 88.8 L Carbon Dioxide 20 L BUN 29 H Creatinine 2.8 H Glucose POC Glucose 68 L 127 H Lactic Acid Calcium 7.2 L Phosphorus Magnesium Direct Bilirubin ALT Alkaline Phosphatase Troponin T C-Reactive Protein Total Protein Albumin Triglycerides Cholesterol LDL Cholesterol Direct HDL Cholesterol Urine WBC (Auto) Urine Creatinine Urine Total Protein Vancomycin Trough Rheumatoid Factor Complement C4 Miscellaneous Test Crossmatch 10/03/16 10/03/16 10/03/16 14:42 18:21 19:09 WBC RBC Hgb Hct MCV MCH MCHC RDW Plt Count Lymph % (Auto) [place] % (Auto) Lymph # [place] # Seg Neutrophils % Seg Neuts % (Manual) Lymphocytes % (Manual) Monocytes % (Manual) Eosinophils % (Manual) Basophils % (Manual) Nucleated RBC % Seg Neutrophils # Seg Neutrophils # Man Lymphocytes # (Manual) Monocytes # (Manual) Eosinophils # (Manual) PT INR Fibrinogen dRVVT Confirm Interp Factor V Activity POC ABG pH 7.499 H POC ABG pCO2 28.4 L POC ABG pO2 44 L Sodium Potassium Chloride Carbon Dioxide BUN Creatinine Glucose POC Glucose 64 L 205 H Lactic Acid Calcium Phosphorus Magnesium Direct Bilirubin ALT Alkaline Phosphatase Troponin T C-Reactive Protein Total Protein Albumin Triglycerides Cholesterol LDL Cholesterol Direct HDL Cholesterol Urine WBC (Auto) Urine Creatinine Urine Total Protein Vancomycin Trough Rheumatoid Factor Complement C4 Miscellaneous Test Crossmatch 10/03/16 10/04/16 10/04/16 23:33 04:18 06:30 WBC RBC 2.54 L Hgb 7.1 L Hct 21.7 L MCV MCH MCHC RDW 19.5 H Plt Count 76 L Lymph % (Auto) [place] % (Auto) Lymph # [place] # Seg Neutrophils % Seg Neuts % (Manual) 88.0 H Lymphocytes % (Manual) 6.0 L Monocytes % (Manual) Eosinophils % (Manual) Basophils % (Manual) Nucleated RBC % Seg Neutrophils # Seg Neutrophils # Man 8.8 H Lymphocytes # (Manual) 0.6 L Monocytes # (Manual) Eosinophils # (Manual) PT INR Fibrinogen dRVVT Confirm Interp Factor V Activity POC ABG pH 7.461 H POC ABG pCO2 33.6 L POC ABG pO2 211 H Sodium Potassium Chloride Carbon Dioxide BUN Creatinine Glucose POC Glucose 136 H Lactic Acid Calcium Phosphorus Magnesium Direct Bilirubin ALT Alkaline Phosphatase Troponin T C-Reactive Protein Total Protein Albumin Triglycerides Cholesterol LDL Cholesterol Direct HDL Cholesterol Urine WBC (Auto) Urine Creatinine Urine Total Protein Vancomycin Trough Rheumatoid Factor Complement C4 Miscellaneous Test Crossmatch 10/04/16 10/04/16 10/04/16 06:30 11:45 17:54 WBC RBC Hgb Hct MCV MCH MCHC RDW Plt Count Lymph % (Auto) [place] % (Auto) Lymph # [place] # Seg Neutrophils % Seg Neuts % (Manual) Lymphocytes % (Manual) Monocytes % (Manual) Eosinophils % (Manual) Basophils % (Manual) Nucleated RBC % Seg Neutrophils # Seg Neutrophils # Man Lymphocytes # (Manual) Monocytes # (Manual) Eosinophils # (Manual) PT INR Fibrinogen dRVVT Confirm Interp Factor V Activity POC ABG pH POC ABG pCO2 POC ABG pO2 Sodium 128 L Potassium Chloride 87.4 L Carbon Dioxide 20 L BUN 34 H Creatinine 2.9 H Glucose 127 H POC Glucose 158 H 160 H Lactic Acid Calcium 7.4 L Phosphorus Magnesium Direct Bilirubin ALT Alkaline Phosphatase Troponin T C-Reactive Protein Total Protein Albumin Triglycerides Cholesterol LDL Cholesterol Direct HDL Cholesterol Urine WBC (Auto) Urine Creatinine Urine Total Protein Vancomycin Trough Rheumatoid Factor Complement C4 Miscellaneous Test Crossmatch 10/04/16 10/05/16 10/05/16 23:25 04:30 05:00 WBC RBC 2.64 L Hgb 7.5 L Hct 22.6 L MCV MCH MCHC RDW 19.3 H Plt Count 80 L Lymph % (Auto) [place] % (Auto) Lymph # [place] # Seg Neutrophils % Seg Neuts % (Manual) Lymphocytes % (Manual) 12.0 L Monocytes % (Manual) Eosinophils % (Manual) Basophils % (Manual) Nucleated RBC % Seg Neutrophils # Seg Neutrophils # Man Lymphocytes # (Manual) Monocytes # (Manual) Eosinophils # (Manual) PT INR Fibrinogen dRVVT Confirm Interp Factor V Activity POC ABG pH 7.475 H POC ABG pCO2 33.3 L POC ABG pO2 140 H Sodium Potassium Chloride Carbon Dioxide BUN Creatinine Glucose POC Glucose 141 H Lactic Acid Calcium Phosphorus Magnesium Direct Bilirubin ALT Alkaline Phosphatase Troponin T C-Reactive Protein Total Protein Albumin Triglycerides Cholesterol LDL Cholesterol Direct HDL Cholesterol Urine WBC (Auto) Urine Creatinine Urine Total Protein Vancomycin Trough Rheumatoid Factor Complement C4 Miscellaneous Test Crossmatch 10/05/16 10/05/16 10/05/16 05:00 05:09 12:58 WBC RBC Hgb Hct MCV MCH MCHC RDW Plt Count Lymph % (Auto) [place] % (Auto) Lymph # [place] # Seg Neutrophils % Seg Neuts % (Manual) Lymphocytes % (Manual) Monocytes % (Manual) Eosinophils % (Manual) Basophils % (Manual) Nucleated RBC % Seg Neutrophils # Seg Neutrophils # Man Lymphocytes # (Manual) Monocytes # (Manual) Eosinophils # (Manual) PT INR Fibrinogen dRVVT Confirm Interp Factor V Activity POC ABG pH POC ABG pCO2 POC ABG pO2 Sodium 131 L Potassium Chloride 94.0 L Carbon Dioxide 20 L BUN 22 H Creatinine 2.0 H Glucose 123 H POC Glucose 166 H 179 H Lactic Acid Calcium 7.7 L Phosphorus 2.20 L D Magnesium Direct Bilirubin ALT Alkaline Phosphatase Troponin T C-Reactive Protein Total Protein Albumin Triglycerides Cholesterol LDL Cholesterol Direct HDL Cholesterol Urine WBC (Auto) Urine Creatinine Urine Total Protein Vancomycin Trough Rheumatoid Factor Complement C4 Miscellaneous Test Crossmatch 10/05/16 10/05/16 10/05/16 15:50 18:53 23:12 WBC RBC Hgb Hct MCV MCH MCHC RDW Plt Count Lymph % (Auto) [place] % (Auto) Lymph # [place] # Seg Neutrophils % Seg Neuts % (Manual) Lymphocytes % (Manual) Monocytes % (Manual) Eosinophils % (Manual) Basophils % (Manual) Nucleated RBC % Seg Neutrophils # Seg Neutrophils # Man Lymphocytes # (Manual) Monocytes # (Manual) Eosinophils # (Manual) PT INR Fibrinogen dRVVT Confirm Interp Factor V Activity POC ABG pH POC ABG pCO2 POC ABG pO2 Sodium Potassium Chloride Carbon Dioxide BUN Creatinine Glucose POC Glucose 150 H 164 H Lactic Acid Calcium Phosphorus Magnesium Direct Bilirubin ALT Alkaline Phosphatase Troponin T C-Reactive Protein Total Protein Albumin Triglycerides Cholesterol LDL Cholesterol Direct HDL Cholesterol Urine WBC (Auto) Urine Creatinine Urine Total Protein Vancomycin Trough Rheumatoid Factor Complement C4 Miscellaneous Test Crossmatch See Detail 10/06/16 10/06/16 10/06/16 03:50 03:50 04:53 WBC RBC 3.00 L Hgb 8.6 L Hct 25.8 L MCV MCH MCHC RDW 17.9 H Plt Count 65 L Lymph % (Auto) [place] % (Auto) Lymph # [place] # Seg Neutrophils % Seg Neuts % (Manual) 30.0 L Lymphocytes % (Manual) 5.0 L Monocytes % (Manual) Eosinophils % (Manual) Basophils % (Manual) Nucleated RBC % Seg Neutrophils # Seg Neutrophils # Man Lymphocytes # (Manual) 0.4 L Monocytes # (Manual) Eosinophils # (Manual) PT INR Fibrinogen dRVVT Confirm Interp Factor V Activity POC ABG pH 7.310 L POC ABG pCO2 49.0 H POC ABG pO2 Sodium 133 L Potassium Chloride 95.9 L Carbon Dioxide BUN 26 H Creatinine 2.0 H Glucose 116 H POC Glucose Lactic Acid Calcium 7.8 L Phosphorus Magnesium Direct Bilirubin ALT Alkaline Phosphatase Troponin T C-Reactive Protein Total Protein Albumin Triglycerides Cholesterol LDL Cholesterol Direct HDL Cholesterol Urine WBC (Auto) Urine Creatinine Urine Total Protein Vancomycin Trough Rheumatoid Factor Complement C4 Miscellaneous Test Crossmatch 10/06/16 10/06/16 10/06/16 05:23 11:52 18:34 WBC RBC Hgb Hct MCV MCH MCHC RDW Plt Count Lymph % (Auto) [place] % (Auto) Lymph # [place] # Seg Neutrophils % Seg Neuts % (Manual) Lymphocytes % (Manual) Monocytes % (Manual) Eosinophils % (Manual) Basophils % (Manual) Nucleated RBC % Seg Neutrophils # Seg Neutrophils # Man Lymphocytes # (Manual) Monocytes # (Manual) Eosinophils # (Manual) PT INR Fibrinogen dRVVT Confirm Interp Factor V Activity POC ABG pH POC ABG pCO2 POC ABG pO2 Sodium Potassium Chloride Carbon Dioxide BUN Creatinine Glucose POC Glucose 126 H 116 H 129 H Lactic Acid Calcium Phosphorus Magnesium Direct Bilirubin ALT Alkaline Phosphatase Troponin T C-Reactive Protein Total Protein Albumin Triglycerides Cholesterol LDL Cholesterol Direct HDL Cholesterol Urine WBC (Auto) Urine Creatinine Urine Total Protein Vancomycin Trough Rheumatoid Factor Complement C4 Miscellaneous Test Crossmatch 10/07/16 10/07/16 10/07/16 03:45 05:00 10:00 WBC 17.0 H RBC 2.68 L Hgb 7.3 L Hct 25.3 L MCV MCH 27 L MCHC 29 L RDW 19.6 H Plt Count 74 L Lymph % (Auto) [place] % (Auto) Lymph # [place] # Seg Neutrophils % Seg Neuts % (Manual) Lymphocytes % (Manual) 12.0 L Monocytes % (Manual) Eosinophils % (Manual) Basophils % (Manual) Nucleated RBC % 4.0 H Seg Neutrophils # Seg Neutrophils # Man 10.7 H Lymphocytes # (Manual) Monocytes # (Manual) Eosinophils # (Manual) PT INR Fibrinogen dRVVT Confirm Interp Factor V Activity POC ABG pH POC ABG pCO2 POC ABG pO2 Sodium 130 L Potassium 3.2 L Chloride 93.9 L Carbon Dioxide 20 L BUN 44 H Creatinine 2.7 H Glucose 129 H POC Glucose Lactic Acid Calcium 7.4 L Phosphorus Magnesium Direct Bilirubin ALT 6 L Alkaline Phosphatase 195 H Troponin T C-Reactive Protein Total Protein 4.9 L Albumin 1.0 L Triglycerides Cholesterol LDL Cholesterol Direct HDL Cholesterol Urine WBC (Auto) Urine Creatinine Urine Total Protein Vancomycin Trough Rheumatoid Factor Complement C4 Miscellaneous Test Flexitest 1 H Crossmatch 10/07/16 10/07/16 10/07/16 10:00 11:24 18:10 WBC RBC Hgb Hct MCV MCH MCHC RDW Plt Count Lymph % (Auto) [place] % (Auto) Lymph # [place] # Seg Neutrophils % Seg Neuts % (Manual) Lymphocytes % (Manual) Monocytes % (Manual) Eosinophils % (Manual) Basophils % (Manual) Nucleated RBC % Seg Neutrophils # Seg Neutrophils # Man Lymphocytes # (Manual) Monocytes # (Manual) Eosinophils # (Manual) PT INR Fibrinogen dRVVT Confirm Interp Factor V Activity POC ABG pH POC ABG pCO2 POC ABG pO2 Sodium Potassium Chloride Carbon Dioxide BUN Creatinine Glucose POC Glucose 116 H 130 H Lactic Acid Calcium Phosphorus Magnesium Direct Bilirubin ALT Alkaline Phosphatase Troponin T C-Reactive Protein 19.40 H Total Protein Albumin Triglycerides Cholesterol LDL Cholesterol Direct HDL Cholesterol Urine WBC (Auto) Urine Creatinine Urine Total Protein Vancomycin Trough Rheumatoid Factor Complement C4 Miscellaneous Test Crossmatch 10/07/16 10/08/16 10/08/16 18:30 00:00 04:00 WBC RBC Hgb Hct MCV MCH MCHC RDW Plt Count Lymph % (Auto) [place] % (Auto) Lymph # [place] # Seg Neutrophils % Seg Neuts % (Manual) Lymphocytes % (Manual) Monocytes % (Manual) Eosinophils % (Manual) Basophils % (Manual) Nucleated RBC % Seg Neutrophils # Seg Neutrophils # Man Lymphocytes # (Manual) Monocytes # (Manual) Eosinophils # (Manual) PT INR Fibrinogen dRVVT Confirm Interp Factor V Activity POC ABG pH POC ABG pCO2 POC ABG pO2 Sodium 132 L Potassium 3.3 L Chloride 93.6 L Carbon Dioxide 17 L BUN 59 H Creatinine 2.7 H Glucose 121 H POC Glucose 122 H Lactic Acid Calcium 7.6 L Phosphorus Magnesium Direct Bilirubin ALT Alkaline Phosphatase Troponin T C-Reactive Protein Total Protein Albumin Triglycerides Cholesterol LDL Cholesterol Direct HDL Cholesterol Urine WBC (Auto) > 182.0 H Urine Creatinine Urine Total Protein Vancomycin Trough Rheumatoid Factor Complement C4 Miscellaneous Test Crossmatch 10/08/16 10/08/16 10/08/16 04:30 05:30 11:51 WBC RBC 5.15 H Hgb 14.4 H D Hct 44.5 H D MCV MCH MCHC RDW 19.5 H Plt Count 56 L Lymph % (Auto) [place] % (Auto) Lymph # [place] # Seg Neutrophils % Seg Neuts % (Manual) 24.0 L Lymphocytes % (Manual) 8.0 L Monocytes % (Manual) Eosinophils % (Manual) Basophils % (Manual) Nucleated RBC % 9.0 H Seg Neutrophils # Seg Neutrophils # Man Lymphocytes # (Manual) 0.7 L Monocytes # (Manual) Eosinophils # (Manual) PT INR Fibrinogen dRVVT Confirm Interp Factor V Activity POC ABG pH POC ABG pCO2 POC ABG pO2 Sodium Potassium Chloride Carbon Dioxide BUN Creatinine Glucose POC Glucose 125 H 150 H Lactic Acid Calcium Phosphorus Magnesium Direct Bilirubin ALT Alkaline Phosphatase Troponin T C-Reactive Protein Total Protein Albumin Triglycerides Cholesterol LDL Cholesterol Direct HDL Cholesterol Urine WBC (Auto) Urine Creatinine Urine Total Protein Vancomycin Trough Rheumatoid Factor Complement C4 Miscellaneous Test Crossmatch 10/08/16 10/08/16 10/08/16 12:49 17:07 19:30 WBC RBC Hgb 7.1 L D Hct 22.4 L D MCV MCH MCHC RDW Plt Count Lymph % (Auto) [place] % (Auto) Lymph # [place] # Seg Neutrophils % Seg Neuts % (Manual) Lymphocytes % (Manual) Monocytes % (Manual) Eosinophils % (Manual) Basophils % (Manual) Nucleated RBC % Seg Neutrophils # Seg Neutrophils # Man Lymphocytes # (Manual) Monocytes # (Manual) Eosinophils # (Manual) PT INR Fibrinogen dRVVT Confirm Interp Factor V Activity POC ABG pH POC ABG pCO2 28.2 L POC ABG pO2 111 H Sodium Potassium Chloride Carbon Dioxide BUN Creatinine Glucose POC Glucose 145 H Lactic Acid Calcium Phosphorus Magnesium Direct Bilirubin ALT Alkaline Phosphatase Troponin T C-Reactive Protein Total Protein Albumin Triglycerides Cholesterol LDL Cholesterol Direct HDL Cholesterol Urine WBC (Auto) Urine Creatinine Urine Total Protein Vancomycin Trough Rheumatoid Factor Complement C4 Miscellaneous Test Crossmatch 10/08/16 10/09/16 10/09/16 19:30 03:45 03:45 WBC 12.6 H RBC 2.36 L Hgb 6.7 L Hct 21.1 L MCV MCH MCHC RDW 19.5 H Plt Count 75 L Lymph % (Auto) [place] % (Auto) Lymph # [place] # Seg Neutrophils % Seg Neuts % (Manual) Lymphocytes % (Manual) Monocytes % (Manual) 10.0 H Eosinophils % (Manual) Basophils % (Manual) Nucleated RBC % 3.0 H Seg Neutrophils # Seg Neutrophils # Man Lymphocytes # (Manual) Monocytes # (Manual) 1.3 H Eosinophils # (Manual) PT 18.0 H INR 1.41 H Fibrinogen dRVVT Confirm Interp Factor V Activity POC ABG pH POC ABG pCO2 POC ABG pO2 Sodium 135 L Potassium Chloride Carbon Dioxide 17 L BUN 81 H Creatinine 3.2 H Glucose 109 H POC Glucose Lactic Acid Calcium 7.4 L Phosphorus 4.60 H D Magnesium Direct Bilirubin ALT Alkaline Phosphatase Troponin T C-Reactive Protein Total Protein Albumin Triglycerides Cholesterol LDL Cholesterol Direct HDL Cholesterol Urine WBC (Auto) Urine Creatinine Urine Total Protein Vancomycin Trough Rheumatoid Factor Complement C4 Miscellaneous Test Crossmatch 10/09/16 10/09/16 10/09/16 03:45 05:14 07:20 WBC RBC Hgb Hct MCV MCH MCHC RDW Plt Count Lymph % (Auto) [place] % (Auto) Lymph # [place] # Seg Neutrophils % Seg Neuts % (Manual) Lymphocytes % (Manual) Monocytes % (Manual) Eosinophils % (Manual) Basophils % (Manual) Nucleated RBC % Seg Neutrophils # Seg Neutrophils # Man Lymphocytes # (Manual) Monocytes # (Manual) Eosinophils # (Manual) PT 19.0 H INR 1.51 H Fibrinogen dRVVT Confirm Interp Factor V Activity POC ABG pH POC ABG pCO2 POC ABG pO2 Sodium Potassium Chloride Carbon Dioxide BUN Creatinine Glucose POC Glucose 151 H Lactic Acid Calcium Phosphorus Magnesium Direct Bilirubin ALT Alkaline Phosphatase Troponin T C-Reactive Protein Total Protein Albumin Triglycerides Cholesterol LDL Cholesterol Direct HDL Cholesterol Urine WBC (Auto) Urine Creatinine Urine Total Protein Vancomycin Trough Rheumatoid Factor Complement C4 Miscellaneous Test Crossmatch See Detail 10/09/16 10/09/16 10/09/16 11:46 16:20 16:43 WBC RBC Hgb 7.2 L Hct 22.2 L MCV MCH MCHC RDW Plt Count Lymph % (Auto) [place] % (Auto) Lymph # [place] # Seg Neutrophils % Seg Neuts % (Manual) Lymphocytes % (Manual) Monocytes % (Manual) Eosinophils % (Manual) Basophils % (Manual) Nucleated RBC % Seg Neutrophils # Seg Neutrophils # Man Lymphocytes # (Manual) Monocytes # (Manual) Eosinophils # (Manual) PT INR Fibrinogen dRVVT Confirm Interp Factor V Activity POC ABG pH POC ABG pCO2 POC ABG pO2 Sodium Potassium Chloride Carbon Dioxide BUN Creatinine Glucose POC Glucose 133 H 141 H Lactic Acid Calcium Phosphorus Magnesium Direct Bilirubin ALT Alkaline Phosphatase Troponin T C-Reactive Protein Total Protein Albumin Triglycerides Cholesterol LDL Cholesterol Direct HDL Cholesterol Urine WBC (Auto) Urine Creatinine Urine Total Protein Vancomycin Trough Rheumatoid Factor Complement C4 Miscellaneous Test Crossmatch 10/10/16 10/10/16 10/10/16 05:00 05:00 11:19 WBC 18.5 H RBC 2.19 L Hgb 6.4 L Hct 19.6 L* MCV MCH MCHC RDW 19.3 H Plt Count 93 L Lymph % (Auto) [place] % (Auto) Lymph # [place] # Seg Neutrophils % Seg Neuts % (Manual) Lymphocytes % (Manual) 10.0 L Monocytes % (Manual) Eosinophils % (Manual) Basophils % (Manual) Nucleated RBC % 4.0 H Seg Neutrophils # Seg Neutrophils # Man 11.3 H Lymphocytes # (Manual) Monocytes # (Manual) Eosinophils # (Manual) PT INR Fibrinogen dRVVT Confirm Interp Factor V Activity POC ABG pH POC ABG pCO2 POC ABG pO2 Sodium Potassium 5.7 H D Chloride Carbon Dioxide 16 L BUN 94 H Creatinine 3.1 H Glucose 131 H POC Glucose 153 H Lactic Acid Calcium 8.2 L Phosphorus 5.10 H Magnesium 2.40 H Direct Bilirubin 0.3 H ALT < 5 L Alkaline Phosphatase 319 H Troponin T C-Reactive Protein Total Protein 5.1 L Albumin 1.0 L Triglycerides Cholesterol LDL Cholesterol Direct HDL Cholesterol Urine WBC (Auto) Urine Creatinine Urine Total Protein Vancomycin Trough Rheumatoid Factor Complement C4 Miscellaneous Test Crossmatch 10/10/16 10/10/16 10/11/16 17:50 23:30 04:15 WBC RBC Hgb Hct MCV MCH MCHC RDW Plt Count Lymph % (Auto) [place] % (Auto) Lymph # [place] # Seg Neutrophils % Seg Neuts % (Manual) Lymphocytes % (Manual) Monocytes % (Manual) Eosinophils % (Manual) Basophils % (Manual) Nucleated RBC % Seg Neutrophils # Seg Neutrophils # Man Lymphocytes # (Manual) Monocytes # (Manual) Eosinophils # (Manual) PT INR Fibrinogen dRVVT Confirm Interp Factor V Activity POC ABG pH POC ABG pCO2 POC ABG pO2 Sodium Potassium Chloride 96.4 L Carbon Dioxide 21 L BUN 57 H Creatinine 2.1 H Glucose 151 H POC Glucose 146 H 141 H Lactic Acid Calcium 8.3 L Phosphorus Magnesium Direct Bilirubin ALT Alkaline Phosphatase Troponin T C-Reactive Protein Total Protein Albumin Triglycerides Cholesterol LDL Cholesterol Direct HDL Cholesterol Urine WBC (Auto) Urine Creatinine Urine Total Protein Vancomycin Trough Rheumatoid Factor Complement C4 Miscellaneous Test Crossmatch 10/11/16 10/11/16 10/11/16 04:15 04:15 05:30 WBC 28.3 H RBC 3.12 L Hgb 9.3 L Hct 28.7 L D MCV MCH MCHC RDW 17.7 H Plt Count 128 L Lymph % (Auto) [place] % (Auto) Lymph # [place] # Seg Neutrophils % Seg Neuts % (Manual) Lymphocytes % (Manual) Monocytes % (Manual) Eosinophils % (Manual) Basophils % (Manual) Nucleated RBC % Seg Neutrophils # Seg Neutrophils # Man Lymphocytes # (Manual) Monocytes # (Manual) Eosinophils # (Manual) PT INR Fibrinogen dRVVT Confirm Interp Factor V Activity POC ABG pH POC ABG pCO2 POC ABG pO2 Sodium Potassium Chloride Carbon Dioxide BUN Creatinine Glucose POC Glucose 167 H Lactic Acid Calcium Phosphorus Magnesium Direct Bilirubin ALT Alkaline Phosphatase Troponin T C-Reactive Protein 15.80 H Total Protein Albumin Triglycerides Cholesterol LDL Cholesterol Direct HDL Cholesterol Urine WBC (Auto) Urine Creatinine Urine Total Protein Vancomycin Trough Rheumatoid Factor Complement C4 Miscellaneous Test Crossmatch 10/11/16 10/11/16 10/11/16 11:40 15:49 23:57 WBC RBC Hgb Hct MCV MCH MCHC RDW Plt Count Lymph % (Auto) [place] % (Auto) Lymph # [place] # Seg Neutrophils % Seg Neuts % (Manual) Lymphocytes % (Manual) Monocytes % (Manual) Eosinophils % (Manual) Basophils % (Manual) Nucleated RBC % Seg Neutrophils # Seg Neutrophils # Man Lymphocytes # (Manual) Monocytes # (Manual) Eosinophils # (Manual) PT INR Fibrinogen dRVVT Confirm Interp Factor V Activity POC ABG pH POC ABG pCO2 POC ABG pO2 Sodium Potassium Chloride Carbon Dioxide BUN Creatinine Glucose POC Glucose 139 H 168 H 161 H Lactic Acid Calcium Phosphorus Magnesium Direct Bilirubin ALT Alkaline Phosphatase Troponin T C-Reactive Protein Total Protein Albumin Triglycerides Cholesterol LDL Cholesterol Direct HDL Cholesterol Urine WBC (Auto) Urine Creatinine Urine Total Protein Vancomycin Trough Rheumatoid Factor Complement C4 Miscellaneous Test Crossmatch 10/12/16 10/12/16 10/12/16 04:40 04:40 05:44 WBC 22.5 H RBC 2.88 L Hgb 8.8 L Hct 26.8 L MCV MCH MCHC RDW 17.8 H Plt Count Lymph % (Auto) [place] % (Auto) Lymph # [place] # Seg Neutrophils % Seg Neuts % (Manual) Lymphocytes % (Manual) Monocytes % (Manual) Eosinophils % (Manual) Basophils % (Manual) Nucleated RBC % Seg Neutrophils # Seg Neutrophils # Man Lymphocytes # (Manual) Monocytes # (Manual) Eosinophils # (Manual) PT INR Fibrinogen dRVVT Confirm Interp Factor V Activity POC ABG pH POC ABG pCO2 POC ABG pO2 Sodium 134 L Potassium Chloride 93.0 L Carbon Dioxide BUN 74 H Creatinine 2.5 H Glucose 137 H POC Glucose 158 H Lactic Acid Calcium 8.2 L Phosphorus Magnesium Direct Bilirubin ALT Alkaline Phosphatase Troponin T C-Reactive Protein Total Protein Albumin Triglycerides Cholesterol LDL Cholesterol Direct HDL Cholesterol Urine WBC (Auto) Urine Creatinine Urine Total Protein Vancomycin Trough Rheumatoid Factor Complement C4 Miscellaneous Test Crossmatch 10/12/16 10/12/16 10/12/16 12:27 18:18 23:46 WBC RBC Hgb Hct MCV MCH MCHC RDW Plt Count Lymph % (Auto) [place] % (Auto) Lymph # [place] # Seg Neutrophils % Seg Neuts % (Manual) Lymphocytes % (Manual) Monocytes % (Manual) Eosinophils % (Manual) Basophils % (Manual) Nucleated RBC % Seg Neutrophils # Seg Neutrophils # Man Lymphocytes # (Manual) Monocytes # (Manual) Eosinophils # (Manual) PT INR Fibrinogen dRVVT Confirm Interp Factor V Activity POC ABG pH POC ABG pCO2 POC ABG pO2 Sodium Potassium Chloride Carbon Dioxide BUN Creatinine Glucose POC Glucose 153 H 140 H 150 H Lactic Acid Calcium Phosphorus Magnesium Direct Bilirubin ALT Alkaline Phosphatase Troponin T C-Reactive Protein Total Protein Albumin Triglycerides Cholesterol LDL Cholesterol Direct HDL Cholesterol Urine WBC (Auto) Urine Creatinine Urine Total Protein Vancomycin Trough Rheumatoid Factor Complement C4 Miscellaneous Test Crossmatch 10/13/16 10/13/16 10/13/16 06:22 09:20 12:29 WBC RBC Hgb Hct MCV MCH MCHC RDW Plt Count Lymph % (Auto) [place] % (Auto) Lymph # [place] # Seg Neutrophils % Seg Neuts % (Manual) Lymphocytes % (Manual) Monocytes % (Manual) Eosinophils % (Manual) Basophils % (Manual) Nucleated RBC % Seg Neutrophils # Seg Neutrophils # Man Lymphocytes # (Manual) Monocytes # (Manual) Eosinophils # (Manual) PT INR Fibrinogen dRVVT Confirm Interp Factor V Activity POC ABG pH POC ABG pCO2 POC ABG pO2 Sodium Potassium Chloride Carbon Dioxide BUN Creatinine Glucose POC Glucose 165 H 193 H Lactic Acid Calcium Phosphorus Magnesium Direct Bilirubin ALT Alkaline Phosphatase Troponin T C-Reactive Protein Total Protein Albumin Triglycerides Cholesterol LDL Cholesterol Direct HDL Cholesterol Urine WBC (Auto) Urine Creatinine Urine Total Protein Vancomycin Trough Rheumatoid Factor Complement C4 Miscellaneous Test Flexitest 1 H Crossmatch 10/13/16 10/13/16 10/13/16 18:09 Unknown Unknown WBC 23.4 H RBC 2.83 L Hgb 8.7 L Hct 26.1 L MCV MCH MCHC RDW 18.1 H Plt Count Lymph % (Auto) [place] % (Auto) Lymph # [place] # Seg Neutrophils % Seg Neuts % (Manual) Lymphocytes % (Manual) Monocytes % (Manual) Eosinophils % (Manual) Basophils % (Manual) Nucleated RBC % Seg Neutrophils # Seg Neutrophils # Man Lymphocytes # (Manual) Monocytes # (Manual) Eosinophils # (Manual) PT INR Fibrinogen dRVVT Confirm Interp Factor V Activity POC ABG pH POC ABG pCO2 POC ABG pO2 Sodium Potassium Chloride 95.8 L Carbon Dioxide BUN 82 H Creatinine 2.6 H Glucose 152 H POC Glucose 166 H Lactic Acid Calcium Phosphorus Magnesium Direct Bilirubin ALT Alkaline Phosphatase Troponin T C-Reactive Protein Total Protein Albumin Triglycerides Cholesterol LDL Cholesterol Direct HDL Cholesterol Urine WBC (Auto) Urine Creatinine Urine Total Protein Vancomycin Trough Rheumatoid Factor Complement C4 Miscellaneous Test Crossmatch 10/14/16 10/14/16 10/14/16 05:38 06:35 08:10 WBC 20.7 H RBC 2.81 L Hgb 8.4 L Hct 27.2 L MCV MCH MCHC RDW 19.4 H Plt Count Lymph % (Auto) [place] % (Auto) Lymph # [place] # Seg Neutrophils % Seg Neuts % (Manual) Lymphocytes % (Manual) Monocytes % (Manual) Eosinophils % (Manual) Basophils % (Manual) Nucleated RBC % Seg Neutrophils # Seg Neutrophils # Man Lymphocytes # (Manual) Monocytes # (Manual) Eosinophils # (Manual) PT INR Fibrinogen dRVVT Confirm Interp Factor V Activity POC ABG pH POC ABG pCO2 POC ABG pO2 Sodium Potassium Chloride Carbon Dioxide BUN 58 H Creatinine 1.9 H Glucose 169 H POC Glucose 195 H Lactic Acid Calcium Phosphorus Magnesium Direct Bilirubin ALT Alkaline Phosphatase Troponin T C-Reactive Protein Total Protein Albumin Triglycerides Cholesterol LDL Cholesterol Direct HDL Cholesterol Urine WBC (Auto) Urine Creatinine Urine Total Protein Vancomycin Trough Rheumatoid Factor Complement C4 Miscellaneous Test Crossmatch 10/14/16 10/14/16 10/14/16 11:44 17:13 23:28 WBC RBC Hgb Hct MCV MCH MCHC RDW Plt Count Lymph % (Auto) [place] % (Auto) Lymph # [place] # Seg Neutrophils % Seg Neuts % (Manual) Lymphocytes % (Manual) Monocytes % (Manual) Eosinophils % (Manual) Basophils % (Manual) Nucleated RBC % Seg Neutrophils # Seg Neutrophils # Man Lymphocytes # (Manual) Monocytes # (Manual) Eosinophils # (Manual) PT INR Fibrinogen dRVVT Confirm Interp Factor V Activity POC ABG pH POC ABG pCO2 POC ABG pO2 Sodium Potassium Chloride Carbon Dioxide BUN Creatinine Glucose POC Glucose 174 H 121 H 151 H Lactic Acid Calcium Phosphorus Magnesium Direct Bilirubin ALT Alkaline Phosphatase Troponin T C-Reactive Protein Total Protein Albumin Triglycerides Cholesterol LDL Cholesterol Direct HDL Cholesterol Urine WBC (Auto) Urine Creatinine Urine Total Protein Vancomycin Trough Rheumatoid Factor Complement C4 Miscellaneous Test Crossmatch 10/15/16 10/15/16 10/15/16 05:06 12:26 17:48 WBC RBC Hgb Hct MCV MCH MCHC RDW Plt Count Lymph % (Auto) [place] % (Auto) Lymph # [place] # Seg Neutrophils % Seg Neuts % (Manual) Lymphocytes % (Manual) Monocytes % (Manual) Eosinophils % (Manual) Basophils % (Manual) Nucleated RBC % Seg Neutrophils # Seg Neutrophils # Man Lymphocytes # (Manual) Monocytes # (Manual) Eosinophils # (Manual) PT INR Fibrinogen dRVVT Confirm Interp Factor V Activity POC ABG pH POC ABG pCO2 POC ABG pO2 Sodium Potassium Chloride Carbon Dioxide BUN Creatinine Glucose POC Glucose 151 H 149 H 153 H Lactic Acid Calcium Phosphorus Magnesium Direct Bilirubin ALT Alkaline Phosphatase Troponin T C-Reactive Protein Total Protein Albumin Triglycerides Cholesterol LDL Cholesterol Direct HDL Cholesterol Urine WBC (Auto) Urine Creatinine Urine Total Protein Vancomycin Trough Rheumatoid Factor Complement C4 Miscellaneous Test Crossmatch 10/15/16 10/15/16 10/16/16 Unknown Unknown 00:02 WBC 23.4 H RBC 2.78 L Hgb 8.5 L Hct 25.7 L MCV MCH MCHC RDW 18.7 H Plt Count Lymph % (Auto) [place] % (Auto) Lymph # [place] # Seg Neutrophils % Seg Neuts % (Manual) Lymphocytes % (Manual) Monocytes % (Manual) Eosinophils % (Manual) Basophils % (Manual) Nucleated RBC % Seg Neutrophils # Seg Neutrophils # Man Lymphocytes # (Manual) Monocytes # (Manual) Eosinophils # (Manual) PT INR Fibrinogen dRVVT Confirm Interp Factor V Activity POC ABG pH POC ABG pCO2 POC ABG pO2 Sodium Potassium Chloride Carbon Dioxide BUN 73 H Creatinine 2.3 H Glucose 120 H POC Glucose 137 H Lactic Acid Calcium Phosphorus Magnesium Direct Bilirubin ALT Alkaline Phosphatase Troponin T C-Reactive Protein Total Protein Albumin Triglycerides Cholesterol LDL Cholesterol Direct HDL Cholesterol Urine WBC (Auto) Urine Creatinine Urine Total Protein Vancomycin Trough Rheumatoid Factor Complement C4 Miscellaneous Test Crossmatch 10/16/16 10/16/16 10/16/16 05:44 06:25 06:25 WBC 22.5 H RBC 2.76 L Hgb 8.3 L Hct 25.2 L MCV MCH MCHC RDW 18.3 H Plt Count Lymph % (Auto) [place] % (Auto) Lymph # [place] # Seg Neutrophils % Seg Neuts % (Manual) Lymphocytes % (Manual) Monocytes % (Manual) Eosinophils % (Manual) Basophils % (Manual) Nucleated RBC % Seg Neutrophils # Seg Neutrophils # Man Lymphocytes # (Manual) Monocytes # (Manual) Eosinophils # (Manual) PT INR Fibrinogen dRVVT Confirm Interp Factor V Activity POC ABG pH POC ABG pCO2 POC ABG pO2 Sodium Potassium Chloride Carbon Dioxide BUN 92 H Creatinine 3.0 H Glucose 138 H POC Glucose 110 H Lactic Acid Calcium Phosphorus Magnesium Direct Bilirubin ALT Alkaline Phosphatase Troponin T C-Reactive Protein Total Protein Albumin Triglycerides Cholesterol LDL Cholesterol Direct HDL Cholesterol Urine WBC (Auto) Urine Creatinine Urine Total Protein Vancomycin Trough Rheumatoid Factor Complement C4 Miscellaneous Test Crossmatch 10/16/16 10/16/16 10/16/16 11:27 11:48 17:36 WBC RBC Hgb Hct MCV MCH MCHC RDW Plt Count Lymph % (Auto) [place] % (Auto) Lymph # [place] # Seg Neutrophils % Seg Neuts % (Manual) Lymphocytes % (Manual) Monocytes % (Manual) Eosinophils % (Manual) Basophils % (Manual) Nucleated RBC % Seg Neutrophils # Seg Neutrophils # Man Lymphocytes # (Manual) Monocytes # (Manual) Eosinophils # (Manual) PT INR Fibrinogen dRVVT Confirm Interp Factor V Activity POC ABG pH 7.582 H POC ABG pCO2 27.4 L POC ABG pO2 110 H Sodium Potassium Chloride Carbon Dioxide BUN Creatinine Glucose POC Glucose 121 H 133 H Lactic Acid Calcium Phosphorus Magnesium Direct Bilirubin ALT Alkaline Phosphatase Troponin T C-Reactive Protein Total Protein Albumin Triglycerides Cholesterol LDL Cholesterol Direct HDL Cholesterol Urine WBC (Auto) Urine Creatinine Urine Total Protein Vancomycin Trough Rheumatoid Factor Complement C4 Miscellaneous Test Crossmatch 10/16/16 10/17/16 10/17/16 20:48 04:24 04:24 WBC 21.4 H RBC 2.72 L Hgb 8.0 L Hct 25.2 L MCV MCH MCHC RDW 18.0 H Plt Count Lymph % (Auto) [place] % (Auto) Lymph # [place] # Seg Neutrophils % Seg Neuts % (Manual) Lymphocytes % (Manual) Monocytes % (Manual) Eosinophils % (Manual) Basophils % (Manual) Nucleated RBC % Seg Neutrophils # Seg Neutrophils # Man Lymphocytes # (Manual) Monocytes # (Manual) Eosinophils # (Manual) PT INR Fibrinogen dRVVT Confirm Interp Factor V Activity POC ABG pH 7.561 H POC ABG pCO2 24.4 L POC ABG pO2 77 L Sodium 148 H Potassium Chloride Carbon Dioxide BUN 104 H Creatinine 3.0 H Glucose 149 H POC Glucose Lactic Acid Calcium Phosphorus Magnesium Direct Bilirubin ALT Alkaline Phosphatase 138 H Troponin T C-Reactive Protein Total Protein 6.2 L Albumin 1.5 L Triglycerides Cholesterol LDL Cholesterol Direct HDL Cholesterol Urine WBC (Auto) Urine Creatinine Urine Total Protein Vancomycin Trough Rheumatoid Factor Complement C4 Miscellaneous Test Crossmatch 10/17/16 10/17/16 10/18/16 06:02 23:17 04:00 WBC RBC Hgb Hct MCV MCH MCHC RDW Plt Count Lymph % (Auto) [place] % (Auto) Lymph # [place] # Seg Neutrophils % Seg Neuts % (Manual) Lymphocytes % (Manual) Monocytes % (Manual) Eosinophils % (Manual) Basophils % (Manual) Nucleated RBC % Seg Neutrophils # Seg Neutrophils # Man Lymphocytes # (Manual) Monocytes # (Manual) Eosinophils # (Manual) PT INR Fibrinogen dRVVT Confirm Interp Factor V Activity POC ABG pH POC ABG pCO2 POC ABG pO2 Sodium 149 H Potassium Chloride 107.9 H Carbon Dioxide 20 L BUN 117 H Creatinine 3.2 H Glucose 119 H POC Glucose 170 H 121 H Lactic Acid Calcium Phosphorus Magnesium Direct Bilirubin ALT Alkaline Phosphatase Troponin T C-Reactive Protein Total Protein Albumin Triglycerides Cholesterol LDL Cholesterol Direct HDL Cholesterol Urine WBC (Auto) Urine Creatinine Urine Total Protein Vancomycin Trough Rheumatoid Factor Complement C4 Miscellaneous Test Crossmatch 10/18/16 10/18/16 04:00 05:23 WBC 20.7 H RBC 2.47 L Hgb 7.4 L Hct 22.9 L MCV MCH MCHC RDW 17.5 H Plt Count Lymph % (Auto) [place] % (Auto) Lymph # [place] # Seg Neutrophils % Seg Neuts % (Manual) Lymphocytes % (Manual) Monocytes % (Manual) Eosinophils % (Manual) Basophils % (Manual) Nucleated RBC % Seg Neutrophils # Seg Neutrophils # Man Lymphocytes # (Manual) Monocytes # (Manual) Eosinophils # (Manual) PT INR Fibrinogen dRVVT Confirm Interp Factor V Activity POC ABG pH POC ABG pCO2 POC ABG pO2 Sodium Potassium Chloride Carbon Dioxide BUN Creatinine Glucose POC Glucose 119 H Lactic Acid Calcium Phosphorus Magnesium Direct Bilirubin ALT Alkaline Phosphatase Troponin T C-Reactive Protein Total Protein Albumin Triglycerides Cholesterol LDL Cholesterol Direct HDL Cholesterol Urine WBC (Auto) Urine Creatinine Urine Total Protein Vancomycin Trough Rheumatoid Factor Complement C4 Miscellaneous Test Crossmatch Allied health notes reviewed: RT
--- NOTE | 2016-10-18 15:15 | Progress Note ---
Assessment and Plan - Patient Problems (1) Dislodged gastrostomy tube Current Visit: Yes Status: Acute Plan to address problem: Given the drainage this is likely intra-abdominal fluid although I cannot completely rule out a wound infection which is highly likely. As the drain site is being held open by the tube, it is likely that this is fluid tracking around the tube and out through the exit site. As a result, I have removed the drain and bo and both areas are packed with iodoform gauze. This is to be changed twice a day until healed. Continue antibiotics. Continue supportive care. Wean vent as tolerated. Agree with repeating a CT of the abdomen and pelvis and approximately 1 week's time for reevaluation. I have discussed this with Dr. Duran Subjective Date of service: 10/18/16 Patient Reports: Positive: fever, other (drainage from incision sites) Narrative: And currently has purulent from both the drain site as well as the right-sided trocar site. Her WBC is improving however she still remains febrile to 101. Objective Vital Signs - 12hr 10/18/16 10/18/16 10/18/16 03:28 04:00 04:15 Temperature 101.5 F H Pulse Rate 127 H 119 H Pulse Rate [ From Monitor] Respiratory 21 Rate Respiratory Rate [ Generalized] Blood Pressure 141/88 171/108 O2 Sat by Pulse 99 100 Oximetry O2 Sat by Pulse Oximetry [ Assessment] O2 Sat by Pulse Oximetry [ Bilateral Throughout] 10/18/16 10/18/16 10/18/16 05:01 06:00 06:16 Temperature Pulse Rate 123 H 123 H Pulse Rate [ From Monitor] Respiratory 21 Rate Respiratory Rate [ Generalized] Blood Pressure 188/100 181/111 181/111 O2 Sat by Pulse 99 100 Oximetry O2 Sat by Pulse Oximetry [ Assessment] O2 Sat by Pulse Oximetry [ Bilateral Throughout] 10/18/16 10/18/16 10/18/16 06:17 07:00 07:31 Temperature Pulse Rate 122 H 114 H 114 H Pulse Rate [ From Monitor] Respiratory 22 17 Rate Respiratory Rate [ Generalized] Blood Pressure 160/99 173/112 173/112 O2 Sat by Pulse 100 100 Oximetry O2 Sat by Pulse Oximetry [ Assessment] O2 Sat by Pulse Oximetry [ Bilateral Throughout] 10/18/16 10/18/16 10/18/16 08:00 08:05 08:06 Temperature 99.7 F H Pulse Rate 114 H 114 H Pulse Rate [ 114 H From Monitor] Respiratory 31 H Rate Respiratory Rate [ Generalized] Blood Pressure 182/109 173/112 O2 Sat by Pulse 100 100 Oximetry O2 Sat by Pulse 99 Oximetry [ Assessment] O2 Sat by Pulse Oximetry [ Bilateral Throughout] 10/18/16 10/18/16 10/18/16 08:31 09:00 09:13 Temperature Pulse Rate 121 H 120 H 118 H Pulse Rate [ From Monitor] Respiratory 39 H 17 Rate Respiratory Rate [ Generalized] Blood Pressure 182/109 191/110 191/110 O2 Sat by Pulse 97 100 Oximetry O2 Sat by Pulse Oximetry [ Assessment] O2 Sat by Pulse Oximetry [ Bilateral Throughout] 10/18/16 10/18/16 10/18/16 09:29 09:31 10:00 Temperature 99.2 F Pulse Rate 121 H 121 H 115 H Pulse Rate [ From Monitor] Respiratory 46 H 22 Rate Respiratory 31 H Rate [ Generalized] Blood Pressure 189/103 189/103 195/99 O2 Sat by Pulse 96 97 Oximetry O2 Sat by Pulse Oximetry [ Assessment] O2 Sat by Pulse 98 Oximetry [ Bilateral Throughout] 10/18/16 10/18/16 10/18/16 10:30 10:40 10:45 Temperature Pulse Rate 109 H 111 H 111 H Pulse Rate [ From Monitor] Respiratory 23 Rate Respiratory Rate [ Generalized] Blood Pressure 156/92 146/98 150/106 O2 Sat by Pulse 97 Oximetry O2 Sat by Pulse Oximetry [ Assessment] O2 Sat by Pulse Oximetry [ Bilateral Throughout] 10/18/16 10/18/16 10/18/16 11:00 11:15 11:30 Temperature Pulse Rate 114 H 115 H 116 H Pulse Rate [ From Monitor] Respiratory 31 H 51 H Rate Respiratory Rate [ Generalized] Blood Pressure 159/98 162/93 134/92 O2 Sat by Pulse 98 99 Oximetry O2 Sat by Pulse Oximetry [ Assessment] O2 Sat by Pulse Oximetry [ Bilateral Throughout] 10/18/16 10/18/16 10/18/16 11:45 12:00 12:02 Temperature 99.2 F Pulse Rate 116 H 117 H 115 H Pulse Rate [ 115 H From Monitor] Respiratory 50 H Rate Respiratory Rate [ Generalized] Blood Pressure 138/92 139/95 162/93 O2 Sat by Pulse 99 98 Oximetry O2 Sat by Pulse Oximetry [ Assessment] O2 Sat by Pulse Oximetry [ Bilateral Throughout] 10/18/16 10/18/16 10/18/16 12:15 12:30 12:31 Temperature Pulse Rate 116 H 113 H 113 H Pulse Rate [ From Monitor] Respiratory 19 Rate Respiratory Rate [ Generalized] Blood Pressure 133/89 132/77 132/77 O2 Sat by Pulse 100 Oximetry O2 Sat by Pulse Oximetry [ Assessment] O2 Sat by Pulse Oximetry [ Bilateral Throughout] 10/18/16 10/18/16 10/18/16 12:45 13:00 13:15 Temperature Pulse Rate 115 H 117 H 113 H Pulse Rate [ From Monitor] Respiratory 41 H Rate Respiratory Rate [ Generalized] Blood Pressure 118/78 115/80 125/92 O2 Sat by Pulse 98 Oximetry O2 Sat by Pulse Oximetry [ Assessment] O2 Sat by Pulse Oximetry [ Bilateral Throughout] 10/18/16 10/18/16 10/18/16 13:30 13:45 14:01 Temperature Pulse Rate 118 H 116 H 116 H Pulse Rate [ From Monitor] Respiratory 43 H 36 H Rate Respiratory Rate [ Generalized] Blood Pressure 119/85 102/70 112/74 O2 Sat by Pulse 97 98 Oximetry O2 Sat by Pulse Oximetry [ Assessment] O2 Sat by Pulse Oximetry [ Bilateral Throughout] 10/18/16 14:30 Temperature Pulse Rate 110 H Pulse Rate [ From Monitor] Respiratory 30 H Rate Respiratory Rate [ Generalized] Blood Pressure 103/67 O2 Sat by Pulse 99 Oximetry O2 Sat by Pulse Oximetry [ Assessment] O2 Sat by Pulse Oximetry [ Bilateral Throughout] - General physical appearance no distress - Respiratory normal respiratory effort - Abdomen soft, not tender, wound (right 12 mm trocar site bo intact however this purulent drainage upon palpation of the area), other (drain site with purulent purulent material coming from around the 2 to bulb her veins collapsed.) - Labs 10/18/16 04:00 10/18/16 04:00 Diabetes panel 10/18/16 Range/Units 04:00 Sodium 149 H (137-145) mmol/L Potassium 4.2 (3.6-5.0) mmol/L Chloride 107.9 H (98-107) mmol/L Carbon Dioxide 20 L (22-30) mmol/L BUN 117 H (7-17) mg/dL Creatinine 3.2 H (0.7-1.2) mg/dL Glucose 119 H (65-100) mg/dL Calcium 9.8 (8.4-10.2) mg/dL Calcium panel 10/18/16 Range/Units 04:00 Calcium 9.8 (8.4-10.2) mg/dL Phosphorus 4.40 (2.5-4.5) mg/dL Pituitary panel 10/18/16 Range/Units 04:00 Sodium 149 H (137-145) mmol/L Potassium 4.2 (3.6-5.0) mmol/L Chloride 107.9 H (98-107) mmol/L Carbon Dioxide 20 L (22-30) mmol/L BUN 117 H (7-17) mg/dL Creatinine 3.2 H (0.7-1.2) mg/dL Glucose 119 H (65-100) mg/dL Calcium 9.8 (8.4-10.2) mg/dL Adrenal panel 10/18/16 Range/Units 04:00 Sodium 149 H (137-145) mmol/L Potassium 4.2 (3.6-5.0) mmol/L Chloride 107.9 H (98-107) mmol/L Carbon Dioxide 20 L (22-30) mmol/L BUN 117 H (7-17) mg/dL Creatinine 3.2 H (0.7-1.2) mg/dL Glucose 119 H (65-100) mg/dL Calcium 9.8 (8.4-10.2) mg/dL
[2016-10-18] MEDS: MERREM 1,000 MG in NACL 0.9% 100 ML IV SCH (15:49)
--- NOTE | 2016-10-18 18:21 | Progress Note ---
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 * Acute hypoxic respiratory failure * Left renal artery stenosis * Metabolic acidosis - improved * Anemia * Hyponatremia - multifactorial Plan: * Will plan for HD today, appears more hemodynamically stable - HR in 110s-120s * Pressors prn MAP>65 * Rate control per cardiology * Transfusion of pRBC per primary team * Abx/antifungal per ID * Surgery recommendations noted * Vent management per critical care * Dose medications for renal function * Avoid potential nephrotoxins Subjective Date of service: 10/18/16 Principal diagnosis: Acute resp failure on MVS; S/P Acute CVA; Acute Encephalopathy; JUANITA Interval history: Patient febrile w/ temp 101.5 overnight Objective - Vital Signs Vital signs: Vital Signs - 12hr 10/18/16 10/18/16 10/18/16 06:17 07:00 07:31 Temperature Pulse Rate 122 H 114 H 114 H Pulse Rate [ From Monitor] Respiratory 22 17 Rate Respiratory Rate [ Generalized] Blood Pressure 160/99 173/112 173/112 O2 Sat by Pulse 100 100 Oximetry O2 Sat by Pulse Oximetry [ Assessment] O2 Sat by Pulse Oximetry [ Bilateral Throughout] 10/18/16 10/18/16 10/18/16 08:00 08:05 08:06 Temperature 99.7 F H Pulse Rate 114 H 114 H Pulse Rate [ 114 H From Monitor] Respiratory 31 H Rate Respiratory Rate [ Generalized] Blood Pressure 182/109 173/112 O2 Sat by Pulse 100 100 Oximetry O2 Sat by Pulse 99 Oximetry [ Assessment] O2 Sat by Pulse Oximetry [ Bilateral Throughout] 10/18/16 10/18/16 10/18/16 08:31 09:00 09:13 Temperature Pulse Rate 121 H 120 H 118 H Pulse Rate [ From Monitor] Respiratory 39 H 17 Rate Respiratory Rate [ Generalized] Blood Pressure 182/109 191/110 191/110 O2 Sat by Pulse 97 100 Oximetry O2 Sat by Pulse Oximetry [ Assessment] O2 Sat by Pulse Oximetry [ Bilateral Throughout] 10/18/16 10/18/16 10/18/16 09:29 09:31 10:00 Temperature 99.2 F Pulse Rate 121 H 121 H 115 H Pulse Rate [ From Monitor] Respiratory 46 H 22 Rate Respiratory 31 H Rate [ Generalized] Blood Pressure 189/103 189/103 195/99 O2 Sat by Pulse 96 97 Oximetry O2 Sat by Pulse Oximetry [ Assessment] O2 Sat by Pulse 98 Oximetry [ Bilateral Throughout] 10/18/16 10/18/16 10/18/16 10:30 10:40 10:45 Temperature Pulse Rate 109 H 111 H 111 H Pulse Rate [ From Monitor] Respiratory 23 Rate Respiratory Rate [ Generalized] Blood Pressure 156/92 146/98 150/106 O2 Sat by Pulse 97 Oximetry O2 Sat by Pulse Oximetry [ Assessment] O2 Sat by Pulse Oximetry [ Bilateral Throughout] 10/18/16 10/18/16 10/18/16 11:00 11:15 11:30 Temperature Pulse Rate 114 H 115 H 116 H Pulse Rate [ From Monitor] Respiratory 31 H 51 H Rate Respiratory Rate [ Generalized] Blood Pressure 159/98 162/93 134/92 O2 Sat by Pulse 98 99 Oximetry O2 Sat by Pulse Oximetry [ Assessment] O2 Sat by Pulse Oximetry [ Bilateral Throughout] 10/18/16 10/18/16 10/18/16 11:45 12:00 12:02 Temperature 99.2 F Pulse Rate 116 H 117 H 115 H Pulse Rate [ 115 H From Monitor] Respiratory 50 H Rate Respiratory Rate [ Generalized] Blood Pressure 138/92 139/95 162/93 O2 Sat by Pulse 99 98 Oximetry O2 Sat by Pulse Oximetry [ Assessment] O2 Sat by Pulse Oximetry [ Bilateral Throughout] 10/18/16 10/18/16 10/18/16 12:15 12:30 12:31 Temperature Pulse Rate 116 H 113 H 113 H Pulse Rate [ From Monitor] Respiratory 19 Rate Respiratory Rate [ Generalized] Blood Pressure 133/89 132/77 132/77 O2 Sat by Pulse 100 Oximetry O2 Sat by Pulse Oximetry [ Assessment] O2 Sat by Pulse Oximetry [ Bilateral Throughout] 10/18/16 10/18/16 10/18/16 12:45 13:00 13:15 Temperature Pulse Rate 115 H 117 H 113 H Pulse Rate [ From Monitor] Respiratory 41 H Rate Respiratory Rate [ Generalized] Blood Pressure 118/78 115/80 125/92 O2 Sat by Pulse 98 Oximetry O2 Sat by Pulse Oximetry [ Assessment] O2 Sat by Pulse Oximetry [ Bilateral Throughout] 10/18/16 10/18/16 10/18/16 13:30 13:45 14:00 Temperature Pulse Rate 118 H 116 H 102 H Pulse Rate [ From Monitor] Respiratory 43 H Rate Respiratory Rate [ Generalized] Blood Pressure 119/85 102/70 112/67 O2 Sat by Pulse 97 Oximetry O2 Sat by Pulse Oximetry [ Assessment] O2 Sat by Pulse Oximetry [ Bilateral Throughout] 10/18/16 10/18/16 10/18/16 14:01 14:30 15:00 Temperature Pulse Rate 116 H 110 H 112 H Pulse Rate [ From Monitor] Respiratory 36 H 30 H 29 H Rate Respiratory Rate [ Generalized] Blood Pressure 112/74 103/67 110/73 O2 Sat by Pulse 98 99 100 Oximetry O2 Sat by Pulse Oximetry [ Assessment] O2 Sat by Pulse Oximetry [ Bilateral Throughout] 10/18/16 10/18/16 10/18/16 15:31 16:00 16:30 Temperature 98.6 F Pulse Rate 123 H 110 H 110 H Pulse Rate [ 122 H From Monitor] Respiratory 33 H 19 25 H Rate Respiratory Rate [ Generalized] Blood Pressure 172/103 142/95 162/99 O2 Sat by Pulse 100 100 100 Oximetry O2 Sat by Pulse Oximetry [ Assessment] O2 Sat by Pulse Oximetry [ Bilateral Throughout] 10/18/16 17:00 Temperature Pulse Rate 111 H Pulse Rate [ From Monitor] Respiratory 24 Rate Respiratory Rate [ Generalized] Blood Pressure 171/107 O2 Sat by Pulse 99 Oximetry O2 Sat by Pulse Oximetry [ Assessment] O2 Sat by Pulse Oximetry [ Bilateral Throughout] - General Appearance General appearance: intubated (via trach) EENT: ATNC Respiratory: Present: Decreased Breath Sounds (at bases), Other (coarse anterior breath sounds) Cardiology: tachycardia, S1S2 Gastrointestinal: other (RUQ JUAN drain) Integumentary: no rash Musculoskeletal: other (trace edema) Psychiatric: cooperative - Lab 10/18/16 04:00 10/18/16 04:00 Most recent lab results Calcium 9.8 mg/dL (8.4-10.2) 10/18/16 04:00 Phosphorus 4.40 mg/dL (2.5-4.5) 10/18/16 04:00 Magnesium 2.00 mg/dL (1.7-2.3) 10/18/16 04:00 Urine Creatinine 54.8 mg/dL (0.1-20.0) H 09/21/16 12:00 Urine Sodium 36 mEq/L 09/16/16 19:19 Urine Total Protein 16 mg/dL (5-11.8) H 09/16/16 19:19
[2016-10-18] MEDS: HEPARIN IV PRN (19:42)
[2016-10-18] MEDS ORDERED: TPN ADULT 2,016 ML IV SCH (20:00)
[2016-10-19] MEDS: LOPRESSOR IV SCH ×7 (01:34→22:27)
[2016-10-19 06:40] LABS: Hematocrit 23.6 % (30.3-42.9); Hemoglobin 7.7 gm/dl (10.1-14.3); Mean Corpuscular HGB Conc 33 % (30-34); Mean Corpuscular Hemoglobin 30 pg (28-32); Mean Corpuscular Volume 93 fl (79-97); Platelet Count 262 K/mm3 (140-440); Red Blood Count 2.54 M/mm3 (3.65-5.03); Red Cell Distribution Width 17.3 % (13.2-15.2)
[2016-10-19 06:55] LABS: BUN/Creatinine Ratio 34.28; Calcium 9.3 mg/dL (8.4-10.2)
--- NOTE | 2016-10-19 07:52 | Progress Note ---
Assessment and Plan Assessment and plan: --Acute hypoxic respiratory failure Vent dependent, Status post trach and peg --Acute massive left MCA CVA, Status post TPA Antiplatelets and statins Supportive care --Severe sepsis with septic shock UTI/candidemia/peritonitis due to gastric perforation from dislodged PEG Off pressors She is now on Meropenem as per ID recommendation --Paroxysmal A. fib Status post failed conversion on 09/25 Continue Amiodarone drip No anticoagulation due to anemia/thrombocytopenia, massive stroke --Acute on chronic kidney disease, On dialysis prn managed by Nephrology . Creatinine 3.2 today --Toxic metabolic Encephalopathy Unresponsive, supportive care --Dislodged PEG Status post wedge gastrectomy, repair of gastric perforation, abdominal washout and drain placement --Candidemia. completed micofungin Toxic metabolic encephalopathy,unresponsive. neurology following --Acute blood loss anemia requiring multiple PRBC transfusions. Hemoglobin 7.4 today . Repeat stool occult blood positive. GI Physician was following, now signed off. Conservative management Monitor H&H closely, --Diabetes mellitus type 2 Insulin/SSI --Leukocytosis . WBC trending down --Severe protein caloric malnutrition, continue TPN --s/p Thrombocytopenia. Now resolved --DVT prophylaxis SCDs, no pharmacological agent given anemia requiring multiple PRBC transfusions , thrombocytopenia, massive stroke --Full code status, very poor prognosis Had a family meeting Monday10/10/16 in which I discussed plan. Present at meeting was the Risk management staff, tea room manager and myself, patient's son and patients' sister. Had another family meeting Monday10/14/16 at 10:00am with Dr. Nazario, myself, Elevator Installer Apprentice and patient's daughter. We discussed diagnosis,plan and prognosis, and all her questions were answered. Dispo. Very poor prognosis. Patient needs LTAC placement Critical care time 32 minutes History Interval history: Patient seen and evaluated in the ICU this morning medical records reviewed Patient remains unresponsive and dependent status post tracheostomy No new events reported by the nursing staff Hospitalist Physical - Constitutional Vitals: Temp Pulse Resp BP Pulse Ox 98.1 F 105 H 29 H 158/88 100 10/19/16 03:09 10/19/16 06:43 10/19/16 06:30 10/19/16 06:43 10/19/16 06:30 General appearance: Present: mild distress, obese, other (on vent, non- responsive) - EENT Eyes: Present: PERRL ENT: other (tetanus post tracheostomy) - Neck Neck: Present: supple, other (status post trach on vent) - Respiratory Respiratory effort: normal Respiratory: bilateral: diminished, rhonchi, negative: rales, wheezing - Cardiovascular Rhythm: regular Heart Sounds: Present: S1 & S2 - Extremities Extremities: no ischemia Extremity abnormal: edema - Abdominal General gastrointestinal: soft, non-tender, non-distended, normal bowel sounds, other (PEG tube in place) - Integumentary Integumentary: Present: clear, warm - Psychiatric Psychiatric: other (unresponsive noncommunicative) - Neurologic Neurologic: other (unresponsive noncommunicative) Results - Labs CBC & Chem 7: 10/19/16 04:00 10/19/16 04:00 Labs: Laboratory Last Values WBC 17.4 K/mm3 (4.5-11.0) H 10/19/16 04:00 RBC 2.54 M/mm3 (3.65-5.03) L 10/19/16 04:00 Hgb 7.7 gm/dl (10.1-14.3) L 10/19/16 04:00 Hct 23.6 % (30.3-42.9) L 10/19/16 04:00 MCV 93 fl (79-97) 10/19/16 04:00 MCH 30 pg (28-32) 10/19/16 04:00 MCHC 33 % (30-34) 10/19/16 04:00 RDW 17.3 % (13.2-15.2) H 10/19/16 04:00 Plt Count 262 K/mm3 (140-440) 10/19/16 04:00 Lymph % (Auto) 6.9 % (13.4-35.0) L 09/21/16 07:45 [place] % (Auto) 0.5 % (0.0-7.3) 10/03/16 05:10 Eos % (Auto) 1.3 % (0.0-4.3) 10/03/16 05:10 Baso % (Auto) 0.2 % (0.0-1.8) 09/21/16 07:45 Lymph # 0.9 K/mm3 (1.2-5.4) L 09/21/16 07:45 [place] # 0.1 K/mm3 (0.0-0.8) 10/03/16 05:10 Eos # 0.2 K/mm3 (0.0-0.4) 10/03/16 05:10 Baso # 0.0 K/mm3 (0.0-0.1) 10/03/16 05:10 Add Manual Diff Complete 10/10/16 05:00 Total Counted 100 10/10/16 05:00 Seg Neutrophils % Advertising Clerk 10/03/16 05:10 Seg Neuts % (Manual) 61.0 % (40.0-70.0) 10/10/16 05:00 Band Neutrophils % 24.0 % 10/10/16 05:00 Lymphocytes % (Manual) 10.0 % (13.4-35.0) L 10/10/16 05:00 Reactive Lymphs % (Man) 0 % 10/10/16 05:00 Monocytes % (Manual) 2.0 % (0.0-7.3) 10/10/16 05:00 Eosinophils % (Manual) 0 % (0.0-4.3) 10/10/16 05:00 Basophils % (Manual) 0 % (0.0-1.8) 10/10/16 05:00 Metamyelocytes % 3.0 % 10/10/16 05:00 Myelocytes % 0 % 10/10/16 05:00 Promyelocytes % 0 % 10/10/16 05:00 Blast Cells % 0 % 10/10/16 05:00 Nucleated RBC % 4.0 % (0.0-0.9) H 10/10/16 05:00 Seg Neutrophils # 11.9 K/mm3 (1.8-7.7) H 10/03/16 05:10 Seg Neutrophils # Man 11.3 K/mm3 (1.8-7.7) H 10/10/16 05:00 Band Neutrophils # 4.4 K/mm3 10/10/16 05:00 Lymphocytes # (Manual) 1.9 K/mm3 (1.2-5.4) 10/10/16 05:00 Abs React Lymphs (Man) 0.0 K/mm3 10/10/16 05:00 Monocytes # (Manual) 0.4 K/mm3 (0.0-0.8) 10/10/16 05:00 Eosinophils # (Manual) 0.0 K/mm3 (0.0-0.4) 10/10/16 05:00 Basophils # (Manual) 0.0 K/mm3 (0.0-0.1) 10/10/16 05:00 Metamyelocytes # 0.6 K/mm3 10/10/16 05:00 Myelocytes # 0.0 K/mm3 10/10/16 05:00 Promyelocytes # 0.0 K/mm3 10/10/16 05:00 Blast Cells # 0.0 K/mm3 10/10/16 05:00 Pathologist Review 09/13/16 04:00 WBC Morphology Not Reportable 10/10/16 05:00 Hypersegmented Neuts Not Reportable 10/10/16 05:00 Hyposegmented Neuts Not Reportable 10/10/16 05:00 Hypogranular Neuts Not Reportable 10/10/16 05:00 Smudge Cells Not Reportable 10/10/16 05:00 Toxic Granulation Not Reportable 10/10/16 05:00 Toxic Vacuolation Not Reportable 10/10/16 05:00 Dohle Bodies Not Reportable 10/10/16 05:00 Pel[place]-Huet Anomaly Not Reportable 10/10/16 05:00 Jasmina Rods Not Reportable 10/10/16 05:00 Platelet Estimate Consistent w auto 10/10/16 05:00 Clumped Platelets Not Reportable 10/10/16 05:00 Plt Clumps, EDTA Not Reportable 10/10/16 05:00 Large Platelets Not Reportable 10/10/16 05:00 Giant Platelets Not Reportable 10/10/16 05:00 Platelet Satelliting Not Reportable 10/10/16 05:00 Plt Morphology Comment Not Reportable 10/10/16 05:00 RBC Morphology Not Reportable 10/10/16 05:00 Dimorphic RBCs Not Reportable 10/10/16 05:00 Polychromasia Rare 10/10/16 05:00 Hypochromasia 1+ 10/10/16 05:00 Poikilocytosis Not Reportable 10/10/16 05:00 Anisocytosis 1+ 10/10/16 05:00 Microcytosis Not Reportable 10/10/16 05:00 Macrocytosis 1+ 10/10/16 05:00 Spherocytes Not Reportable 10/10/16 05:00 Pappenheimer Bodies Not Reportable 10/10/16 05:00 Sickle Cells Not Reportable 10/10/16 05:00 Target Cells Not Reportable 10/10/16 05:00 Tear Drop Cells Not Reportable 10/10/16 05:00 Ovalocytes Not Reportable 10/10/16 05:00 Stomatocytes Few 10/06/16 03:50 Helmet Cells Not Reportable 10/10/16 05:00 [place] Bodies Not Reportable 10/10/16 05:00 [place] Rings Not Reportable 10/10/16 05:00 Chuck Cells Not Reportable 10/10/16 05:00 Bite Cells Not Reportable 10/10/16 05:00 Crenated Cell Not Reportable 10/10/16 05:00 Elliptocytes Not Reportable 10/10/16 05:00 Acanthocytes (Spur) Not Reportable 10/10/16 05:00 Rouleaux Not Reportable 10/10/16 05:00 Hemoglobin C Crystals Not Reportable 10/10/16 05:00 Schistocytes Not Reportable 10/10/16 05:00 Malaria parasites Not Reportable 10/10/16 05:00 ESR > 140.0 mm/Hr (0-20) 09/08/16 11:48 Jun Bodies Not Reportable 10/10/16 05:00 Hem Pathologist Commnt No 10/10/16 05:00 PT 19.0 Sec. (12.2-14.9) H 10/09/16 03:45 INR 1.51 (0.87-1.13) H 10/09/16 03:45 APTT 33.0 Sec. (24.2-36.6) 10/09/16 03:45 Thrombin Time 16.8 Sec. (15.1-19.6) 09/03/16 00:10 Fibrinogen 750 mg/dl (211-480) H 09/08/16 11:48 Lupus Anticoagulant see below 09/12/16 09:59 LA PTT Baseline See scanned report 09/12/16 09:59 dRVVT Confirm Interp Positive (Negative) H 09/12/16 09:59 dRVVT Screen 50:50 See scanned report 09/12/16 09:59 dRVVT Mix Interpret See scanned report 09/12/16 09:59 Protein C Antigen 122 % (70-140) 09/08/16 15:35 Free Protein S 97 % normal (50-147) 09/08/16 15:35 Total Protein S 109 % (70-140) 09/08/16 15:35 Antithrombin III Ag 100 % (80-120) 09/08/16 15:35 Heparin Anti-Xa, Unfract Negative (Negative) 09/29/16 13:35 Factor V Activity 182 % (65-150) H 09/08/16 15:35 POC ABG pH 7.561 (7.35-7.45) H 10/16/16 20:48 POC ABG pCO2 24.4 (35-45) L 10/16/16 20:48 POC ABG pO2 77 (80-105) L 10/16/16 20:48 POC ABG HCO3 21.9 10/16/16 20:48 POC ABG Total CO2 23 10/16/16 20:48 POC ABG O2 Sat 97 10/16/16 20:48 POC ABG Base Excess 0 10/16/16 20:48 FiO2 25 % 10/16/16 20:48 Sodium 145 mmol/L (137-145) 10/19/16 04:00 Potassium 3.6 mmol/L (3.6-5.0) 10/19/16 04:00 Chloride 103.5 mmol/L (98-107) 10/19/16 04:00 Carbon Dioxide 22 mmol/L (22-30) 10/19/16 04:00 Anion Gap 23 mmol/L 10/19/16 04:00 BUN 72 mg/dL (7-17) H 10/19/16 04:00 Creatinine 2.1 mg/dL (0.7-1.2) H 10/19/16 04:00 Estimated GFR 31 ml/min 10/19/16 04:00 BUN/Creatinine Ratio 34.28 % 10/19/16 04:00 Glucose 116 mg/dL (65-100) H 10/19/16 04:00 POC Glucose 119 (70-105) H 10/19/16 05:25 Osmolality 351 Mosm/kg 09/16/16 11:47 Lactic Acid 4.50 mmol/L (0.7-2.0) H* 09/28/16 07:25 Calcium 9.3 mg/dL (8.4-10.2) 10/19/16 04:00 Phosphorus 2.60 mg/dL (2.5-4.5) D 10/19/16 04:00 Magnesium 1.70 mg/dL (1.7-2.3) 10/19/16 04:00 Total Bilirubin 0.30 mg/dL (0.1-1.2) 10/17/16 04:24 Direct Bilirubin 0.3 mg/dL (0-0.2) H 10/10/16 05:00 Indirect Bilirubin 0.1 mg/dL 10/10/16 05:00 AST 39 units/L (5-40) 10/17/16 04:24 ALT 13 units/L (7-56) 10/17/16 04:24 Alkaline Phosphatase 138 units/L (35-129) H 10/17/16 04:24 Ammonia 27.0 umol/L (25-60) 09/07/16 08:37 Total Creatine Kinase 121 units/L (30-135) 09/29/16 20:12 CK-MB (CK-2) < 1.0 ng/mL (0.0-4.0) 09/29/16 20:12 CK-MB (CK-2) Rel Index 0.8 (0-4) 09/29/16 20:12 Troponin T 0.204 ng/mL (0.00-0.029) H* 09/29/16 20:12 C-Reactive Protein 15.80 mg/dL (0.00-1.30) H 10/11/16 04:15 Total Protein 6.2 g/dL (6.3-8.2) L 10/17/16 04:24 Albumin 1.5 g/dL (3.9-5) L 10/17/16 04:24 Albumin/Globulin Ratio 0.3 % 10/17/16 04:24 Triglycerides 137 mg/dL (2-149) 09/29/16 20:12 Cholesterol 31 mg/dL (50-199) L 09/29/16 20:12 LDL Cholesterol Direct 4 mg/dL (50-130) L 09/29/16 20:12 HDL Cholesterol 3 mg/dL (40-59) L 09/29/16 20:12 Cholesterol/HDL Ratio 10.33 % 09/29/16 20:12 Angiotensin Convert Enz See scanned report 09/08/16 11:48 Renin 0.99 ng/mL/h (0.25-5.82) 10/07/16 10:56 Aldosterone <1 ng/dL () 10/07/16 10:56 Aldosterone/Renin Dir see below 10/07/16 10:56 Serotonin Release Assay See scanned report 09/29/16 13:35 TSH 1.010 mlU/mL (0.270-4.200) 09/07/16 08:37 HCG, Qual Negative (Negative) 09/03/16 00:10 Urine Color [place] (Yellow) 10/07/16 18:30 Urine Turbidity Turbid (Clear) 10/07/16 18:30 Urine pH 7.0 (5.0-7.0) 10/07/16 18:30 Ur Specific [place] 1.012 (1.003-1.030) 10/07/16 18:30 Urine Protein 100 mg/dl mg/dL (Negative) 10/07/16 18:30 Urine Glucose (UA) Neg mg/dL (Negative) 10/07/16 18:30 Urine Ketones Neg mg/dL (Negative) 10/07/16 18:30 Urine Blood Lg (Negative) 10/07/16 18:30 Urine Nitrite Neg (Negative) 10/07/16 18:30 Urine Bilirubin Neg (Negative) 10/07/16 18:30 Urine Urobilinogen < 2.0 mg/dL (<2.0) 10/07/16 18:30 Ur Leukocyte Esterase Lg (Negative) 10/07/16 18:30 Urine WBC (Auto) > 182.0 /HPF (0.0-6.0) H 10/07/16 18:30 Urine RBC (Auto) > 182.0 /HPF (0.0-6.0) 10/07/16 18:30 U Epithel Cells (Auto) 1.0 /HPF (0-13.0) 10/07/16 18:30 Urine Bacteria (Auto) 3+ /HPF (Negative) 10/07/16 18:30 Urine WBC Clumps 2+ /HPF 09/07/16 02:47 Hyaline Casts 4 /LPF 09/07/16 02:47 Urine Mucus Few /HPF 10/07/16 18:30 Urine Yeast (Budding) 3+ /HPF 10/07/16 18:30 Urine Eosinophils None seen (None Seen) 09/07/16 16:00 Urine Total Volume 1350 09/21/16 12:00 Urine Creatinine 54.8 mg/dL (0.1-20.0) H 09/21/16 12:00 Height (in) 67.0 inches 09/21/16 12:00 Weight (lb) 92.0 lbs 09/21/16 12:00 Creatinine Clearance 15 09/21/16 12:00 Urine Sodium 36 mEq/L 09/16/16 19:19 Urine Total Protein 16 mg/dL (5-11.8) H 09/16/16 19:19 Vancomycin Trough 2.3 ug/mL (5.0-20.0) L 09/21/16 13:00 Random Vancomycin 2.3 ug/mL (0-40.0) 09/09/16 03:00 Urine Opiates Screen Presumptive negative 09/03/16 15:11 Urine Methadone Screen Presumptive positive 09/03/16 15:11 Ur Barbiturates Screen Presumptive positive 09/03/16 15:11 Ur Phencyclidine Scrn Presumptive negative 09/03/16 15:11 Ur Amphetamines Screen Presumptive negative 09/03/16 15:11 U Benzodiazepines Scrn Presumptive negative 09/03/16 15:11 Urine Cocaine Screen Presumptive negative 09/03/16 15:11 U Marijuana (THC) Screen Presumptive positive 09/03/16 15:11 Drugs of Abuse Note Disclamer 09/03/16 15:11 Rheumatoid Factor 24 IU/ml (0-13) H 09/08/16 11:48 SAHIL Screen Negative (Negative) 09/07/16 09:20 Proteinase 3 (PR3) Ab <1.0 AI (<1.0) 09/07/16 09:20 Myeloperoxidase Ab <1.0 AI (<1.0) 09/07/16 09:20 Sjogren's Antibody <1.0 AI (<1.0) 09/08/16 15:35 Scl-70 Scleroderma Ab <1.0 AI (<1.0) 09/08/16 15:35 Centromere B Antibody <1.0 AI (<1.0) 09/08/16 12:02 Heparin-induced Plt Ab Negative (Negative) 09/29/16 13:35 UF Heparin High Dose 11 % Release 09/29/16 13:35 SUDHIR UFH Low Dose 0.1 6 % Release 09/29/16 13:35 SUDHIR UFH Low Dose 0.5 8 % Release 09/29/16 13:35 Cardiolipid IgG Ab <14 GPL (<=14) 09/12/16 09:59 Cardiolipid IgA Ab <11 APL (<=11) 09/12/16 09:59 Cardiolipid IgM Ab <12 MPL (<=12) 09/12/16 09:59 Complement C3 148 mg/dL (90-180) 09/07/16 09:20 Complement C4 58 mg/dL (16-47) H 09/07/16 09:20 RPR Nonreactive (Nonreactive) 09/08/16 11:48 Hepatitis A IgM Ab Non-reactive (NonReactive) 09/24/16 14:40 Hep Bs Antigen Non-reactive (Negative) 09/24/16 14:40 Hep B Core IgM Ab Non-reactive (NonReactive) 09/24/16 14:40 Hepatitis C Antibody Non-reactive (NonReactive) 09/24/16 14:40 HIV 1&2 Antibody Rapid Non react (Non React) 09/08/16 11:48 HIV P24 Antigen Non react (Non React) 09/08/16 11:48 Miscellaneous Test Flexitest 1 H 10/13/16 09:20 Blood Type A POSITIVE 10/09/16 07:20 Antibody Screen Negative 10/09/16 07:20 DELORIS Antibody Screen Negative 09/25/16 10:30 Crossmatch See Detail 10/09/16 07:20
--- NOTE | 2016-10-19 10:00 | Progress Note ---
Assessment and Plan Acute hypoxic respiratory failure on mechanical ventilation s/p trach and PEG Acute left MCA CVA echocardiogram demonstrates at least moderate LVH but a normal LV systolic function, EF 50-55%. no thrombus visualized on transthoracic echocardiogram. Dislodged PEG tube s/p repair of gastric perforation with wedge gastrectomy Hypertension Acute on chronic renal failure requiring dialysis Fungemia Diabetes mellitus Anemia requiring transfusion of PRBCs Leukocytosis Paroxysmal Afib s/p failed cardioversion on 09/25 on IV lopressor for suppression considered not a candidate for anticoagulation due to severe anemia requiring blood transfusion Recommendations: Conservative cardiac management. Transition to po metoprolol 50 mg every 6 hours and discontinue IV when po is resumed No OAC due to profound anemia requiring repeated blood transfusions Will sign off Please call back if needed Subjective Date of service: 10/19/16 Principal diagnosis: Acute resp failure on MVS; S/P Acute CVA; Acute Encephalopathy; JUANITA Interval history: No interval changes Patient is still receiving TPN Tele is showing sinus tachycardia Objective Vital Signs Temp Pulse Pulse Resp Resp BP Pulse Ox 10/19/16 08:31 109 H 156/86 99 10/19/16 08:00 98.6 F 10/19/16 06:43 105 H 158/88 10/19/16 06:30 102 H 29 H 158/88 100 10/19/16 06:00 105 H 26 H 160/96 100 10/19/16 05:30 103 H 31 H 164/100 100 10/19/16 05:00 103 H 32 H 171/99 99 10/19/16 04:30 99 H 31 H 147/81 99 10/19/16 04:01 99 H 29 H 141/77 99 10/19/16 04:00 100 10/19/16 03:31 104 H 28 H 190/120 98 10/19/16 03:09 98.1 F 10/19/16 03:00 111 H 28 H 190/120 100 10/19/16 02:58 111 H 184/116 99 10/19/16 02:30 109 H 32 H 184/116 99 10/19/16 02:00 103 H 30 H 183/108 100 10/19/16 01:35 112 H 183/111 10/19/16 01:34 114 H 154/95 10/19/16 01:30 115 H 32 H 183/111 99 10/19/16 01:00 109 H 25 H 154/97 100 10/19/16 00:30 104 H 29 H 131/88 99 10/19/16 00:00 94 H 25 H 103/59 100 10/18/16 23:30 105 H 20 151/97 100 10/18/16 23:06 98.9 F 10/18/16 23:01 10/18/16 23:00 115 H 30 H 159/100 99 10/18/16 22:59 114 H 154/88 100 10/18/16 22:30 114 H 30 H 154/88 99 10/18/16 22:00 105 H 27 H 126/74 97 10/18/16 21:30 110 H 29 H 121/72 96 10/18/16 21:01 111 H 29 H 131/77 96 10/18/16 20:51 117 H 27 H 162/100 96 10/18/16 20:30 124 H 29 H 169/99 98 10/18/16 20:24 114 H 173/112 10/18/16 20:00 112 H 25 H 172/109 100 10/18/16 19:44 99.4 F 10/18/16 19:30 109 H 28 H 173/112 100 10/18/16 19:07 105 H 155/103 100 10/18/16 19:00 104 H 28 H 155/103 100 10/18/16 18:31 96 H 25 H 162/108 100 10/18/16 18:22 110 H 162/108 10/18/16 18:00 113 H 29 H 162/108 98 10/18/16 17:31 120 H 34 H 160/112 98 10/18/16 17:00 111 H 24 171/107 99 10/18/16 16:30 110 H 25 H 162/99 100 10/18/16 16:00 98.6 F 96 H 122 H 19 162/108 100 10/18/16 15:31 123 H 33 H 172/103 100 10/18/16 15:00 112 H 29 H 110/73 100 10/18/16 14:30 110 H 30 H 103/67 99 10/18/16 14:15 98.8 F 115 H 31 H 146/95 10/18/16 14:01 116 H 36 H 112/74 98 10/18/16 14:00 117 H 112/74 10/18/16 13:45 116 H 102/70 10/18/16 13:30 118 H 43 H 119/85 97 10/18/16 13:15 113 H 125/92 10/18/16 13:00 117 H 41 H 115/80 98 10/18/16 12:45 115 H 118/78 10/18/16 12:31 113 H 19 132/77 100 10/18/16 12:30 113 H 132/77 10/18/16 12:15 116 H 133/89 10/18/16 12:02 115 H 162/93 98 10/18/16 12:00 99.2 F 117 H 115 H 50 H 139/95 99 10/18/16 11:45 116 H 138/92 10/18/16 11:30 116 H 51 H 134/92 99 10/18/16 11:15 115 H 162/93 10/18/16 11:00 114 H 31 H 159/98 98 10/18/16 10:45 111 H 150/106 10/18/16 10:40 111 H 146/98 10/18/16 10:30 109 H 23 156/92 97 10/18/16 10:00 99.2 F 115 H 22 31 H 195/99 97 Pulse Ox Pulse Ox 10/19/16 08:31 10/19/16 08:00 10/19/16 06:43 10/19/16 06:30 10/19/16 06:00 10/19/16 05:30 10/19/16 05:00 10/19/16 04:30 10/19/16 04:01 10/19/16 04:00 10/19/16 03:31 10/19/16 03:09 10/19/16 03:00 10/19/16 02:58 10/19/16 02:30 10/19/16 02:00 10/19/16 01:35 10/19/16 01:34 10/19/16 01:30 10/19/16 01:00 10/19/16 00:30 10/19/16 00:00 10/18/16 23:30 10/18/16 23:06 10/18/16 23:01 100 10/18/16 23:00 10/18/16 22:59 10/18/16 22:30 10/18/16 22:00 10/18/16 21:30 10/18/16 21:01 10/18/16 20:51 10/18/16 20:30 10/18/16 20:24 10/18/16 20:00 10/18/16 19:44 10/18/16 19:30 10/18/16 19:07 10/18/16 19:00 10/18/16 18:31 10/18/16 18:22 10/18/16 18:00 10/18/16 17:31 10/18/16 17:00 10/18/16 16:30 10/18/16 16:00 98 10/18/16 15:31 10/18/16 15:00 10/18/16 14:30 10/18/16 14:15 98 10/18/16 14:01 10/18/16 14:00 10/18/16 13:45 10/18/16 13:30 10/18/16 13:15 10/18/16 13:00 10/18/16 12:45 10/18/16 12:31 10/18/16 12:30 10/18/16 12:15 10/18/16 12:02 10/18/16 12:00 10/18/16 11:45 10/18/16 11:30 10/18/16 11:15 10/18/16 11:00 10/18/16 10:45 10/18/16 10:40 10/18/16 10:30 10/18/16 10:00 98 - Physical Examination General: Other (ventilated via trach) HEENT: Positive: PERRL Neck: Positive: neck supple Cardiac: Positive: Tachycardia Lungs: Positive: Ventilated Respirations Neuro: Positive: Weakness Abdomen: Positive: Soft, Active Bowel Sounds Skin: Positive: Clear Extremities: Absent: edema - Labs and Meds CBC 10/19/16 Range/Units 04:00 WBC 17.4 H (4.5-11.0) K/mm3 RBC 2.54 L (3.65-5.03) M/mm3 Hgb 7.7 L (10.1-14.3) gm/dl Hct 23.6 L (30.3-42.9) % Plt Count 262 (140-440) K/mm3 Comprehensive Metabolic Panel 10/19/16 Range/Units 04:00 Sodium 145 (137-145) mmol/L Potassium 3.6 (3.6-5.0) mmol/L Chloride 103.5 (98-107) mmol/L Carbon Dioxide 22 (22-30) mmol/L BUN 72 H (7-17) mg/dL Creatinine 2.1 H (0.7-1.2) mg/dL Glucose 116 H (65-100) mg/dL Calcium 9.3 (8.4-10.2) mg/dL - Imaging and Cardiology EKG: image reviewed - Allied health notes Allied health notes reviewed: RT
[2016-10-19] MEDS: HumuLIN R SUB-Q SCH ×3 (13:02→18:01)
[2016-10-19] MEDS: PROTONIX IV SCH (13:16)
[2016-10-19] MEDS: MERREM 1,000 MG in NACL 0.9% 100 ML IV SCH (13:21)
--- NOTE | 2016-10-19 13:56 | Progress Note ---
Assessment and Plan (1) Acute respiratory failure with hypoxia Current Visit: Yes Status: Acute Plan to address problem: - continue aspiration precautions / address VAP bundles - continue to wean oxygen for MAP > 94% - continue bronchodilators and pulmonary toilet - s/p tracheostomy - continue daily PSV trials as tolerated (2) Acute CVA (cerebrovascular accident) Current Visit: Yes Status: Acute Plan to address problem: - out of tpA window (initially stopped due to uncontrolled HTN) - Left MCA teritory stroke with some midline shift on last CT - seen by neurology and prognosis for recovery of mental status guarded to poor - optimizing secondary prevention modalities now (BP, lipid anti-platelet therapy) - off systemic steroids now (started earlier for edema) - clinically about the same (3) Hypertensive emergency Current Visit: Yes Status: Acute Plan to address problem: - stopped all antihypertensives while septic - following clinically (4) Obesity (BMI 35.0-39.9 without comorbidity) Current Visit: Yes Status: Chronic Plan to address problem: - nutrition consult placed for enteral formulation - on TPN now - follow clinically (5) Type 2 diabetes mellitus Current Visit: Yes Status: Chronic Qualifiers: Diabetes mellitus complication status: D Diabetes mellitus complication detail: D Diabetic retinopathy severity: D Proliferative retinopathy type: P Diabetes mellitus macular edema: D Diabetes mellitus mcfp insulin use : D Laterality: L Chronic kidney disease stage: C Plan to address problem: - continue SSI - discontinued lantus re: hypoglycemia (6) Leukocytosis (leucocytosis) Current Visit: Yes Status: Acute Qualifiers: Leukocytosis type: leukemoid reaction Qualified Code(s): D72.823 - Leukemoid reaction Plan to address problem: - completed cancidas and de-escalate per ID recs - leucocytosis persistent but now trending down (7) Agitation Current Visit: Yes Status: Acute Plan to address problem: - prn sedation / analgesia - tapered off seroquel for now (8) Atrial fibrillation Current Visit: Yes Status: Acute Qualifiers: Atrial fibrillation type: A Plan to address problem: - failed cardioversion earlier - cardiology evaluation ongoing - back in A-fib - continue amiodarone drip (change to p.o. once tolerating enterally) - on IV metoprolol scheduled re: HTN & tachycardia (9) JUANITA (acute kidney injury) Current Visit: Yes Status: Acute Plan to address problem: - on Dialysis now - continue HD/UF per nephrology recommendations (10) Pyrexia of unknown origin Current Visit: Yes Status: Acute Plan to address problem: - dopplers negative for DVT - continue to treat with Anti-infectives (11) Severe sepsis Current Visit: Yes Status: Acute Plan to address problem: - resume vasopressors for MAP < 60mmHg not responsive to volume - all central vascular access has been discontinued after fungemia reported - care plan formulated with ID input - BC's from 09/27/16 growing in 1of 2 but still no ID yet - coomplete micafungin per ID recs and stop date - wound care nurse also managing back wounds - clinically stable and hemodynamically improved - bo to RLQ incision removed and wound drained and packed - on contact precautions per ID (12) Emesis Current Visit: Yes Status: Acute Qualifiers: Vomiting type: V Vomiting Intractability: V Nausea presence: N Plan to address problem: - s/p surgical repair of gastric perforation - continue TPN for now - follow surgery recommendations (13) Discharge planning issues Current Visit: Yes Status: Acute Plan to address problem: - she remains critically ill on life sustaining interventions including MVS and at risk for further acute deterioration including .....30' CCT ....[facility]p prognosis is guarded Subjective Date of service: 10/19/16 Principal diagnosis: Acute resp failure on MVS; S/P Acute CVA; Acute Encephalopathy; JUANITA Interval history: Seen and examined at bedside; 24 hour events reviewed; nursing and respiratory care staff consulted; no adverse overnight events reported to me; resting peacefully in bed; eyes open not appropriately responsive; drainage from RLQ incision improving; no high grade fevers; no emesis or overt aspiration; no gross bleeding Objective Vital Signs - 12hr 10/19/16 10/19/16 10/19/16 02:00 02:30 02:58 Temperature Pulse Rate 103 H 109 H 111 H Respiratory 30 H 32 H Rate Blood Pressure 183/108 184/116 184/116 O2 Sat by Pulse 100 99 99 Oximetry 10/19/16 10/19/16 10/19/16 03:00 03:09 03:31 Temperature 98.1 F Pulse Rate 111 H 104 H Respiratory 28 H 28 H Rate Blood Pressure 190/120 190/120 O2 Sat by Pulse 100 98 Oximetry 08/10/19/16 10/19/16 04:00 04:01 04:30 Temperature Pulse Rate 99 H 99 H Respiratory 29 H 31 H Rate Blood Pressure 141/77 147/81 O2 Sat by Pulse 100 99 99 Oximetry 10/19/16 10/19/16 10/19/16 05:00 05:30 06:00 Temperature Pulse Rate 103 H 103 H 105 H Respiratory 32 H 31 H 26 H Rate Blood Pressure 171/99 164/100 160/96 O2 Sat by Pulse 99 100 100 Oximetry 10/19/16 10/19/16 10/19/16 06:30 06:43 07:00 Temperature Pulse Rate 102 H 105 H 94 H Respiratory 29 H 30 H Rate Blood Pressure 158/88 158/88 162/85 O2 Sat by Pulse 100 100 Oximetry 10/19/16 10/19/16 10/19/16 07:30 08:00 08:30 Temperature 98.6 F Pulse Rate 98 H 100 H 101 H Respiratory 31 H 29 H 32 H Rate Blood Pressure 146/86 147/87 156/86 O2 Sat by Pulse 100 100 100 Oximetry 10/19/16 10/19/16 10/19/16 08:31 09:01 09:30 Temperature Pulse Rate 109 H 105 H 110 H Respiratory 28 H 30 H Rate Blood Pressure 156/86 162/87 163/95 O2 Sat by Pulse 99 99 99 Oximetry 10/19/16 10/19/16 10/19/16 10:00 10:30 11:00 Temperature Pulse Rate 117 H 108 H 109 H Respiratory 32 H 31 H 32 H Rate Blood Pressure 176/107 149/87 147/89 O2 Sat by Pulse 99 99 98 Oximetry 10/19/16 10/19/16 10/19/16 11:30 12:00 12:01 Temperature 98.7 F Pulse Rate 111 H 117 H Respiratory 29 H 29 H Rate Blood Pressure 150/95 174/93 O2 Sat by Pulse 99 100 100 Oximetry 10/19/16 10/19/16 10/19/16 12:30 13:16 13:48 Temperature Pulse Rate 123 H 117 H 115 H Respiratory 43 H Rate Blood Pressure 191/104 167/96 160/84 O2 Sat by Pulse 100 99 Oximetry Constitutional: no acute distress, other (eyes open; not tracking movements) Eyes: non-icteric, other (tracheostomy tube in midline of neck) ENT: oropharynx moist Neck: supple, no lymphadenopathy Effort: mildly labored Ascultation: Bilateral: diminished breath sounds (bases), rhonchi Cardiovascular: regular rate and rhythm Gastrointestinal: hypoactive bowel sounds, soft, non-tender, non-distended, other (hema drain in place) Integumentary: other (erythema to skin of back with some healing areas; no obvious TEN's features) Extremities: no cyanosis, no edema, pulses normal, no ischemia or petechiae Neurologic: pupils equal and round, other (sedated) Psychiatric: other (unable to assess) CBC and BMP: 10/20/16 06:00 10/21/16 04:00 ABG, PT/INR, D-dimer: ABG POC ABG pH 7.561 (7.35-7.45) H 10/16/16 20:48 POC ABG pCO2 24.4 (35-45) L 10/16/16 20:48 POC ABG pO2 77 (80-105) L 10/16/16 20:48 POC ABG HCO3 21.9 10/16/16 20:48 POC ABG Total CO2 23 10/16/16 20:48 POC ABG O2 Sat 97 10/16/16 20:48 PT/INR, D-dimer PT 19.0 Sec. (12.2-14.9) H 10/09/16 03:45 INR 1.51 (0.87-1.13) H 10/09/16 03:45 Abnormal lab findings: Abnormal Labs 09/03/16 09/03/16 09/03/16 12:12 15:07 16:20 WBC RBC Hgb Hct MCV MCH MCHC RDW Plt Count Lymph % (Auto) Wilkinson % (Auto) Lymph # Wilkinson # Seg Neutrophils % Seg Neuts % (Manual) Lymphocytes % (Manual) Monocytes % (Manual) Eosinophils % (Manual) Basophils % (Manual) Nucleated RBC % Seg Neutrophils # Seg Neutrophils # Man Lymphocytes # (Manual) Monocytes # (Manual) Eosinophils # (Manual) PT INR Fibrinogen dRVVT Confirm Interp Factor V Activity POC ABG pH 7.452 H POC ABG pCO2 POC ABG pO2 Sodium Potassium Chloride Carbon Dioxide BUN Creatinine Glucose POC Glucose 178 H Lactic Acid Calcium Phosphorus 2.20 L Magnesium 1.60 L Direct Bilirubin ALT Alkaline Phosphatase Troponin T C-Reactive Protein Total Protein Albumin Triglycerides Cholesterol LDL Cholesterol Direct HDL Cholesterol Urine WBC (Auto) Urine Creatinine Urine Total Protein Vancomycin Trough Rheumatoid Factor Complement C4 Miscellaneous Test Crossmatch 09/03/16 09/03/16 09/03/16 17:57 17:58 23:50 WBC RBC Hgb Hct MCV MCH MCHC RDW Plt Count Lymph % (Auto) Wilkinson % (Auto) Lymph # Wilkinson # Seg Neutrophils % Seg Neuts % (Manual) Lymphocytes % (Manual) Monocytes % (Manual) Eosinophils % (Manual) Basophils % (Manual) Nucleated RBC % Seg Neutrophils # Seg Neutrophils # Man Lymphocytes # (Manual) Monocytes # (Manual) Eosinophils # (Manual) PT INR Fibrinogen dRVVT Confirm Interp Factor V Activity POC ABG pH POC ABG pCO2 POC ABG pO2 Sodium Potassium Chloride Carbon Dioxide BUN Creatinine Glucose POC Glucose 162 H 145 H Lactic Acid Calcium Phosphorus 2.30 L Magnesium Direct Bilirubin ALT Alkaline Phosphatase Troponin T C-Reactive Protein Total Protein Albumin Triglycerides Cholesterol LDL Cholesterol Direct HDL Cholesterol Urine WBC (Auto) Urine Creatinine Urine Total Protein Vancomycin Trough Rheumatoid Factor Complement C4 Miscellaneous Test Crossmatch 09/04/16 09/04/16 09/04/16 03:31 03:31 05:42 WBC RBC Hgb 9.7 L D Hct MCV 72 L MCH 23 L MCHC RDW 17.5 H Plt Count Lymph % (Auto) 11.1 L Wilkinson % (Auto) Lymph # Wilkinson # Seg Neutrophils % 84.3 H Seg Neuts % (Manual) Lymphocytes % (Manual) Monocytes % (Manual) Eosinophils % (Manual) Basophils % (Manual) Nucleated RBC % Seg Neutrophils # 8.9 H Seg Neutrophils # Man Lymphocytes # (Manual) Monocytes # (Manual) Eosinophils # (Manual) PT INR Fibrinogen dRVVT Confirm Interp Factor V Activity POC ABG pH POC ABG pCO2 POC ABG pO2 Sodium 135 L Potassium 2.9 L* Chloride 97.2 L Carbon Dioxide 19 L BUN Creatinine 1.7 H Glucose 170 H POC Glucose 152 H Lactic Acid Calcium Phosphorus Magnesium Direct Bilirubin ALT Alkaline Phosphatase Troponin T C-Reactive Protein Total Protein Albumin Triglycerides 160 H Cholesterol LDL Cholesterol Direct HDL Cholesterol 31 L Urine WBC (Auto) Urine Creatinine Urine Total Protein Vancomycin Trough Rheumatoid Factor Complement C4 Miscellaneous Test Crossmatch 09/04/16 09/04/16 09/04/16 11:34 17:46 23:29 WBC RBC Hgb Hct MCV MCH MCHC RDW Plt Count Lymph % (Auto) Wilkinson % (Auto) Lymph # Wilkinson # Seg Neutrophils % Seg Neuts % (Manual) Lymphocytes % (Manual) Monocytes % (Manual) Eosinophils % (Manual) Basophils % (Manual) Nucleated RBC % Seg Neutrophils # Seg Neutrophils # Man Lymphocytes # (Manual) Monocytes # (Manual) Eosinophils # (Manual) PT INR Fibrinogen dRVVT Confirm Interp Factor V Activity POC ABG pH POC ABG pCO2 POC ABG pO2 Sodium Potassium Chloride Carbon Dioxide BUN Creatinine Glucose POC Glucose 165 H 210 H 139 H Lactic Acid Calcium Phosphorus Magnesium Direct Bilirubin ALT Alkaline Phosphatase Troponin T C-Reactive Protein Total Protein Albumin Triglycerides Cholesterol LDL Cholesterol Direct HDL Cholesterol Urine WBC (Auto) Urine Creatinine Urine Total Protein Vancomycin Trough Rheumatoid Factor Complement C4 Miscellaneous Test Crossmatch 09/05/16 09/05/16 09/05/16 04:05 04:05 05:38 WBC RBC Hgb Hct MCV 76 L D MCH 23 L MCHC RDW 17.8 H Plt Count Lymph % (Auto) Wilkinson % (Auto) Lymph # Wilkinson # Seg Neutrophils % Seg Neuts % (Manual) Lymphocytes % (Manual) Monocytes % (Manual) Eosinophils % (Manual) Basophils % (Manual) Nucleated RBC % Seg Neutrophils # Seg Neutrophils # Man Lymphocytes # (Manual) Monocytes # (Manual) Eosinophils # (Manual) PT INR Fibrinogen dRVVT Confirm Interp Factor V Activity POC ABG pH POC ABG pCO2 POC ABG pO2 Sodium 134 L Potassium Chloride Carbon Dioxide 18 L BUN Creatinine 1.8 H Glucose 192 H POC Glucose 175 H Lactic Acid Calcium Phosphorus Magnesium Direct Bilirubin ALT Alkaline Phosphatase Troponin T C-Reactive Protein Total Protein Albumin Triglycerides Cholesterol LDL Cholesterol Direct HDL Cholesterol Urine WBC (Auto) Urine Creatinine Urine Total Protein Vancomycin Trough Rheumatoid Factor Complement C4 Miscellaneous Test Crossmatch 09/05/16 09/05/16 09/05/16 11:38 17:48 23:22 WBC RBC Hgb Hct MCV MCH MCHC RDW Plt Count Lymph % (Auto) Wilkinson % (Auto) Lymph # Wilkinson # Seg Neutrophils % Seg Neuts % (Manual) Lymphocytes % (Manual) Monocytes % (Manual) Eosinophils % (Manual) Basophils % (Manual) Nucleated RBC % Seg Neutrophils # Seg Neutrophils # Man Lymphocytes # (Manual) Monocytes # (Manual) Eosinophils # (Manual) PT INR Fibrinogen dRVVT Confirm Interp Factor V Activity POC ABG pH POC ABG pCO2 POC ABG pO2 Sodium Potassium Chloride Carbon Dioxide BUN Creatinine Glucose POC Glucose 164 H 186 H 195 H Lactic Acid Calcium Phosphorus Magnesium Direct Bilirubin ALT Alkaline Phosphatase Troponin T C-Reactive Protein Total Protein Albumin Triglycerides Cholesterol LDL Cholesterol Direct HDL Cholesterol Urine WBC (Auto) Urine Creatinine Urine Total Protein Vancomycin Trough Rheumatoid Factor Complement C4 Miscellaneous Test Crossmatch 09/06/16 09/06/16 09/06/16 04:12 05:59 07:32 WBC RBC Hgb Hct MCV MCH MCHC RDW Plt Count Lymph % (Auto) Wilkinson % (Auto) Lymph # Wilkinson # Seg Neutrophils % Seg Neuts % (Manual) Lymphocytes % (Manual) Monocytes % (Manual) Eosinophils % (Manual) Basophils % (Manual) Nucleated RBC % Seg Neutrophils # Seg Neutrophils # Man Lymphocytes # (Manual) Monocytes # (Manual) Eosinophils # (Manual) PT INR Fibrinogen dRVVT Confirm Interp Factor V Activity POC ABG pH 7.514 H POC ABG pCO2 29.1 L POC ABG pO2 72 L Sodium 133 L Potassium 3.4 L Chloride 94.9 L Carbon Dioxide 19 L BUN 30 H Creatinine 2.1 H Glucose 139 H POC Glucose 146 H Lactic Acid Calcium Phosphorus Magnesium Direct Bilirubin ALT Alkaline Phosphatase Troponin T C-Reactive Protein Total Protein Albumin Triglycerides Cholesterol LDL Cholesterol Direct HDL Cholesterol Urine WBC (Auto) Urine Creatinine Urine Total Protein Vancomycin Trough Rheumatoid Factor Complement C4 Miscellaneous Test Crossmatch 09/06/16 09/06/16 09/06/16 11:57 17:58 19:02 WBC RBC Hgb Hct MCV MCH MCHC RDW Plt Count Lymph % (Auto) Wilkinson % (Auto) Lymph # Wilkinson # Seg Neutrophils % Seg Neuts % (Manual) Lymphocytes % (Manual) Monocytes % (Manual) Eosinophils % (Manual) Basophils % (Manual) Nucleated RBC % Seg Neutrophils # Seg Neutrophils # Man Lymphocytes # (Manual) Monocytes # (Manual) Eosinophils # (Manual) PT INR Fibrinogen dRVVT Confirm Interp Factor V Activity POC ABG pH 7.465 H POC ABG pCO2 32.0 L POC ABG pO2 Sodium Potassium Chloride Carbon Dioxide BUN Creatinine Glucose POC Glucose 165 H 160 H Lactic Acid Calcium Phosphorus Magnesium Direct Bilirubin ALT Alkaline Phosphatase Troponin T C-Reactive Protein Total Protein Albumin Triglycerides Cholesterol LDL Cholesterol Direct HDL Cholesterol Urine WBC (Auto) Urine Creatinine Urine Total Protein Vancomycin Trough Rheumatoid Factor Complement C4 Miscellaneous Test Crossmatch 09/06/16 09/07/16 09/07/16 23:45 02:47 02:47 WBC RBC Hgb Hct MCV MCH MCHC RDW Plt Count Lymph % (Auto) Wilkinson % (Auto) Lymph # [place]kinson # Seg Neutrophils % Seg Neuts % (Manual) Lymphocytes % (Manual) Monocytes % (Manual) Eosinophils % (Manual) Basophils % (Manual) Nucleated RBC % Seg Neutrophils # Seg Neutrophils # Man Lymphocytes # (Manual) Monocytes # (Manual) Eosinophils # (Manual) PT INR Fibrinogen dRVVT Confirm Interp Factor V Activity POC ABG pH POC ABG pCO2 POC ABG pO2 Sodium Potassium Chloride Carbon Dioxide BUN Creatinine Glucose POC Glucose 204 H Lactic Acid Calcium Phosphorus Magnesium Direct Bilirubin ALT Alkaline Phosphatase Troponin T C-Reactive Protein Total Protein Albumin Triglycerides Cholesterol LDL Cholesterol Direct HDL Cholesterol Urine WBC (Auto) 68.0 H Urine Creatinine 106.1 H Urine Total Protein Vancomycin Trough Rheumatoid Factor Complement C4 Miscellaneous Test Crossmatch 09/07/16 09/07/16 09/07/16 04:50 06:19 06:39 WBC RBC Hgb Hct MCV MCH MCHC RDW Plt Count Lymph % (Auto) Wilkinson % (Auto) Lymph # [place]kinson # Seg Neutrophils % Seg Neuts % (Manual) Lymphocytes % (Manual) Monocytes % (Manual) Eosinophils % (Manual) Basophils % (Manual) Nucleated RBC % Seg Neutrophils # Seg Neutrophils # Man Lymphocytes # (Manual) Monocytes # (Manual) Eosinophils # (Manual) PT INR Fibrinogen dRVVT Confirm Interp Factor V Activity POC ABG pH 7.457 H POC ABG pCO2 32.1 L POC ABG pO2 76 L Sodium 132 L Potassium Chloride 94.7 L Carbon Dioxide BUN 53 H Creatinine 2.9 H Glucose 151 H POC Glucose 149 H Lactic Acid Calcium Phosphorus Magnesium Direct Bilirubin ALT Alkaline Phosphatase Troponin T C-Reactive Protein Total Protein Albumin Triglycerides Cholesterol LDL Cholesterol Direct HDL Cholesterol Urine WBC (Auto) Urine Creatinine Urine Total Protein Vancomycin Trough Rheumatoid Factor Complement C4 Miscellaneous Test Crossmatch 09/07/16 09/07/16 09/07/16 09:20 11:43 11:43 WBC 19.4 H RBC Hgb 8.3 L Hct 26.4 L D MCV 72 L D MCH 22 L MCHC RDW 17.9 H Plt Count Lymph % (Auto) 8.5 L Wilkinson % (Auto) Lymph # Wilkinson # 1.0 H Seg Neutrophils % 85.8 H Seg Neuts % (Manual) Lymphocytes % (Manual) Monocytes % (Manual) Eosinophils % (Manual) Basophils % (Manual) Nucleated RBC % Seg Neutrophils # 16.6 H Seg Neutrophils # Man Lymphocytes # (Manual) Monocytes # (Manual) Eosinophils # (Manual) PT INR Fibrinogen dRVVT Confirm Interp Factor V Activity POC ABG pH POC ABG pCO2 POC ABG pO2 Sodium 134 L Potassium Chloride 97.2 L Carbon Dioxide 20 L BUN 58 H Creatinine 2.9 H Glucose 147 H POC Glucose Lactic Acid Calcium Phosphorus 2.40 L Magnesium 2.40 H Direct Bilirubin ALT Alkaline Phosphatase Troponin T C-Reactive Protein Total Protein 5.8 L Albumin 2.2 L Triglycerides Cholesterol LDL Cholesterol Direct HDL Cholesterol Urine WBC (Auto) Urine Creatinine Urine Total Protein Vancomycin Trough Rheumatoid Factor Complement C4 58 H Miscellaneous Test Crossmatch 09/07/16 09/07/16 09/07/16 11:50 16:00 17:31 WBC RBC Hgb Hct MCV MCH MCHC RDW Plt Count Lymph % (Auto) Wilkinson % (Auto) Lymph # Wilkinson # Seg Neutrophils % Seg Neuts % (Manual) Lymphocytes % (Manual) Monocytes % (Manual) Eosinophils % (Manual) Basophils % (Manual) Nucleated RBC % Seg Neutrophils # Seg Neutrophils # Man Lymphocytes # (Manual) Monocytes # (Manual) Eosinophils # (Manual) PT INR Fibrinogen dRVVT Confirm Interp Factor V Activity POC ABG pH POC ABG pCO2 POC ABG pO2 158 H Sodium Potassium Chloride Carbon Dioxide BUN Creatinine Glucose POC Glucose 175 H Lactic Acid Calcium Phosphorus Magnesium Direct Bilirubin ALT Alkaline Phosphatase Troponin T C-Reactive Protein Total Protein Albumin Triglycerides Cholesterol LDL Cholesterol Direct HDL Cholesterol Urine WBC (Auto) Urine Creatinine 66.3 H Urine Total Protein Vancomycin Trough Rheumatoid Factor Complement C4 Miscellaneous Test Crossmatch 09/07/16 09/08/16 09/08/16 23:50 05:46 06:18 WBC 17.8 H RBC 3.58 L Hgb 8.1 L Hct 25.5 L MCV 71 L MCH 23 L MCHC RDW 18.4 H Plt Count Lymph % (Auto) Wilkinson % (Auto) Lymph # Wilkinson # Seg Neutrophils % Seg Neuts % (Manual) 92.0 H Lymphocytes % (Manual) 6.0 L Monocytes % (Manual) Eosinophils % (Manual) Basophils % (Manual) Nucleated RBC % Seg Neutrophils # Seg Neutrophils # Man 16.4 H Lymphocytes # (Manual) 1.1 L Monocytes # (Manual) Eosinophils # (Manual) PT INR Fibrinogen dRVVT Confirm Interp Factor V Activity POC ABG pH POC ABG pCO2 34.3 L POC ABG pO2 71 L Sodium Potassium Chloride Carbon Dioxide BUN Creatinine Glucose POC Glucose 216 H Lactic Acid Calcium Phosphorus Magnesium Direct Bilirubin ALT Alkaline Phosphatase Troponin T C-Reactive Protein Total Protein Albumin Triglycerides Cholesterol LDL Cholesterol Direct HDL Cholesterol Urine WBC (Auto) Urine Creatinine Urine Total Protein Vancomycin Trough Rheumatoid Factor Complement C4 Miscellaneous Test Crossmatch 09/08/16 09/08/16 09/08/16 06:18 06:51 10:55 WBC RBC Hgb Hct MCV MCH MCHC RDW Plt Count Lymph % (Auto) [place]kinson % (Auto) Lymph # [place]kinson # Seg Neutrophils % Seg Neuts % (Manual) Lymphocytes % (Manual) Monocytes % (Manual) Eosinophils % (Manual) Basophils % (Manual) Nucleated RBC % Seg Neutrophils # Seg Neutrophils # Man Lymphocytes # (Manual) Monocytes # (Manual) Eosinophils # (Manual) PT INR Fibrinogen dRVVT Confirm Interp Factor V Activity POC ABG pH POC ABG pCO2 POC ABG pO2 Sodium 133 L Potassium Chloride 96.9 L Carbon Dioxide 20 L BUN 63 H Creatinine 2.7 H Glucose 195 H POC Glucose 204 H 169 H Lactic Acid Calcium Phosphorus Magnesium Direct Bilirubin ALT Alkaline Phosphatase Troponin T C-Reactive Protein Total Protein Albumin Triglycerides Cholesterol LDL Cholesterol Direct HDL Cholesterol Urine WBC (Auto) Urine Creatinine Urine Total Protein Vancomycin Trough Rheumatoid Factor Complement C4 Miscellaneous Test Crossmatch 09/08/16 09/08/16 09/08/16 11:48 11:48 11:48 WBC RBC Hgb Hct MCV MCH MCHC RDW Plt Count Lymph % (Auto) [place]kinson % (Auto) Lymph # [place]kinson # Seg Neutrophils % Seg Neuts % (Manual) Lymphocytes % (Manual) Monocytes % (Manual) Eosinophils % (Manual) Basophils % (Manual) Nucleated RBC % Seg Neutrophils # Seg Neutrophils # Man Lymphocytes # (Manual) Monocytes # (Manual) Eosinophils # (Manual) PT INR Fibrinogen 750 H dRVVT Confirm Interp Factor V Activity POC ABG pH POC ABG pCO2 POC ABG pO2 Sodium Potassium Chloride Carbon Dioxide BUN Creatinine Glucose POC Glucose Lactic Acid Calcium Phosphorus Magnesium Direct Bilirubin ALT Alkaline Phosphatase Troponin T C-Reactive Protein 15.70 H Total Protein Albumin Triglycerides Cholesterol LDL Cholesterol Direct HDL Cholesterol Urine WBC (Auto) Urine Creatinine Urine Total Protein Vancomycin Trough Rheumatoid Factor 24 H Complement C4 Miscellaneous Test Crossmatch 09/08/16 09/08/16 09/09/16 15:35 18:25 00:24 WBC RBC Hgb Hct MCV MCH MCHC RDW Plt Count Lymph % (Auto) [place]kinson % (Auto) Lymph # [place]kinson # Seg Neutrophils % Seg Neuts % (Manual) Lymphocytes % (Manual) Monocytes % (Manual) Eosinophils % (Manual) Basophils % (Manual) Nucleated RBC % Seg Neutrophils # Seg Neutrophils # Man Lymphocytes # (Manual) Monocytes # (Manual) Eosinophils # (Manual) PT INR Fibrinogen dRVVT Confirm Interp Factor V Activity 182 H POC ABG pH POC ABG pCO2 POC ABG pO2 Sodium Potassium Chloride Carbon Dioxide BUN Creatinine Glucose POC Glucose 184 H 216 H Lactic Acid Calcium Phosphorus Magnesium Direct Bilirubin ALT Alkaline Phosphatase Troponin T C-Reactive Protein Total Protein Albumin Triglycerides Cholesterol LDL Cholesterol Direct HDL Cholesterol Urine WBC (Auto) Urine Creatinine Urine Total Protein Vancomycin Trough Rheumatoid Factor Complement C4 Miscellaneous Test Crossmatch 09/09/16 09/09/16 09/09/16 03:00 03:00 04:04 WBC 27.9 H RBC Hgb 8.7 L Hct 28.1 L MCV 72 L MCH 22 L MCHC RDW 18.4 H Plt Count 485 H Lymph % (Auto) [place]kinson % (Auto) Lymph # [place]kinson # Seg Neutrophils % Seg Neuts % (Manual) 77.0 H Lymphocytes % (Manual) 9.0 L Monocytes % (Manual) Eosinophils % (Manual) Basophils % (Manual) Nucleated RBC % Seg Neutrophils # Seg Neutrophils # Man 21.5 H Lymphocytes # (Manual) Monocytes # (Manual) 2.0 H Eosinophils # (Manual) PT INR Fibrinogen dRVVT Confirm Interp Factor V Activity POC ABG pH POC ABG pCO2 POC ABG pO2 121 H Sodium 135 L Potassium Chloride 96.3 L Carbon Dioxide 21 L BUN 83 H Creatinine 3.0 H Glucose 135 H POC Glucose Lactic Acid Calcium Phosphorus Magnesium Direct Bilirubin ALT Alkaline Phosphatase Troponin T C-Reactive Protein Total Protein Albumin Triglycerides Cholesterol LDL Cholesterol Direct HDL Cholesterol Urine WBC (Auto) Urine Creatinine Urine Total Protein Vancomycin Trough Rheumatoid Factor Complement C4 Miscellaneous Test Crossmatch 09/09/16 09/09/16 09/09/16 05:41 11:55 14:13 WBC RBC Hgb Hct MCV MCH MCHC RDW Plt Count Lymph % (Auto) [place]kinson % (Auto) Lymph # [place]kinson # Seg Neutrophils % Seg Neuts % (Manual) Lymphocytes % (Manual) Monocytes % (Manual) Eosinophils % (Manual) Basophils % (Manual) Nucleated RBC % Seg Neutrophils # Seg Neutrophils # Man Lymphocytes # (Manual) Monocytes # (Manual) Eosinophils # (Manual) PT INR Fibrinogen dRVVT Confirm Interp Factor V Activity POC ABG pH POC ABG pCO2 POC ABG pO2 Sodium Potassium Chloride Carbon Dioxide BUN Creatinine Glucose POC Glucose 155 H 186 H Lactic Acid Calcium Phosphorus Magnesium Direct Bilirubin ALT Alkaline Phosphatase Troponin T C-Reactive Protein Total Protein Albumin Triglycerides Cholesterol LDL Cholesterol Direct HDL Cholesterol Urine WBC (Auto) 25.0 H Urine Creatinine Urine Total Protein Vancomycin Trough Rheumatoid Factor Complement C4 Miscellaneous Test Crossmatch 09/09/16 09/09/16 09/10/16 17:33 23:13 05:09 WBC RBC Hgb Hct MCV MCH MCHC RDW Plt Count Lymph % (Auto) [place] % (Auto) Lymph # [place] # Seg Neutrophils % Seg Neuts % (Manual) Lymphocytes % (Manual) Monocytes % (Manual) Eosinophils % (Manual) Basophils % (Manual) Nucleated RBC % Seg Neutrophils # Seg Neutrophils # Man Lymphocytes # (Manual) Monocytes # (Manual) Eosinophils # (Manual) PT INR Fibrinogen dRVVT Confirm Interp Factor V Activity POC ABG pH POC ABG pCO2 POC ABG pO2 74 L Sodium Potassium Chloride Carbon Dioxide BUN Creatinine Glucose POC Glucose 211 H 215 H Lactic Acid Calcium Phosphorus Magnesium Direct Bilirubin ALT Alkaline Phosphatase Troponin T C-Reactive Protein Total Protein Albumin Triglycerides Cholesterol LDL Cholesterol Direct HDL Cholesterol Urine WBC (Auto) Urine Creatinine Urine Total Protein Vancomycin Trough Rheumatoid Factor Complement C4 Miscellaneous Test Crossmatch 09/10/16 09/10/16 09/10/16 05:17 05:17 11:31 WBC 15.8 H RBC 3.25 L Hgb 7.3 L Hct 22.9 L MCV 71 L MCH 23 L MCHC RDW 18.4 H Plt Count Lymph % (Auto) [place] % (Auto) Lymph # [place] # Seg Neutrophils % Seg Neuts % (Manual) 91.0 H Lymphocytes % (Manual) 4.0 L Monocytes % (Manual) Eosinophils % (Manual) Basophils % (Manual) Nucleated RBC % Seg Neutrophils # Seg Neutrophils # Man 14.4 H Lymphocytes # (Manual) 0.6 L Monocytes # (Manual) Eosinophils # (Manual) PT INR Fibrinogen dRVVT Confirm Interp Factor V Activity POC ABG pH POC ABG pCO2 POC ABG pO2 Sodium Potassium Chloride Carbon Dioxide 21 L BUN 93 H Creatinine 2.9 H Glucose 146 H POC Glucose 188 H Lactic Acid Calcium 8.1 L Phosphorus Magnesium Direct Bilirubin ALT Alkaline Phosphatase Troponin T C-Reactive Protein Total Protein Albumin Triglycerides Cholesterol LDL Cholesterol Direct HDL Cholesterol Urine WBC (Auto) Urine Creatinine Urine Total Protein Vancomycin Trough Rheumatoid Factor Complement C4 Miscellaneous Test Crossmatch 09/10/16 09/10/16 09/10/16 13:17 17:20 23:32 WBC RBC Hgb Hct MCV MCH MCHC RDW Plt Count Lymph % (Auto) [place] % (Auto) Lymph # [place] # Seg Neutrophils % Seg Neuts % (Manual) Lymphocytes % (Manual) Monocytes % (Manual) Eosinophils % (Manual) Basophils % (Manual) Nucleated RBC % Seg Neutrophils # Seg Neutrophils # Man Lymphocytes # (Manual) Monocytes # (Manual) Eosinophils # (Manual) PT INR Fibrinogen dRVVT Confirm Interp Factor V Activity POC ABG pH POC ABG pCO2 POC ABG pO2 Sodium Potassium Chloride Carbon Dioxide BUN Creatinine Glucose POC Glucose 199 H 186 H Lactic Acid Calcium Phosphorus Magnesium Direct Bilirubin ALT Alkaline Phosphatase Troponin T C-Reactive Protein Total Protein Albumin Triglycerides Cholesterol LDL Cholesterol Direct HDL Cholesterol Urine WBC (Auto) Urine Creatinine Urine Total Protein Vancomycin Trough Rheumatoid Factor Complement C4 Miscellaneous Test Crossmatch See Detail 09/11/16 09/11/16 09/11/16 05:10 05:10 05:17 WBC 28.4 H RBC Hgb 9.2 L Hct 29.3 L D MCV 73 L MCH 23 L MCHC RDW 18.9 H Plt Count 452 H Lymph % (Auto) [place] % (Auto) Lymph # [place] # Seg Neutrophils % Seg Neuts % (Manual) 89.5 H Lymphocytes % (Manual) 2.0 L Monocytes % (Manual) Eosinophils % (Manual) Basophils % (Manual) Nucleated RBC % Seg Neutrophils # Seg Neutrophils # Man 25.4 H Lymphocytes # (Manual) 0.6 L Monocytes # (Manual) 1.3 H Eosinophils # (Manual) PT INR Fibrinogen dRVVT Confirm Interp Factor V Activity POC ABG pH POC ABG pCO2 POC ABG pO2 Sodium 136 L Potassium Chloride Carbon Dioxide 18 L BUN 107 H Creatinine 2.6 H Glucose 187 H POC Glucose 230 H Lactic Acid Calcium 8.3 L Phosphorus Magnesium Direct Bilirubin ALT Alkaline Phosphatase Troponin T C-Reactive Protein Total Protein Albumin Triglycerides Cholesterol LDL Cholesterol Direct HDL Cholesterol Urine WBC (Auto) Urine Creatinine Urine Total Protein Vancomycin Trough Rheumatoid Factor Complement C4 Miscellaneous Test Crossmatch 09/11/16 09/11/16 09/11/16 05:55 12:02 17:32 WBC RBC Hgb Hct MCV MCH MCHC RDW Plt Count Lymph % (Auto) [place] % (Auto) Lymph # [place] # Seg Neutrophils % Seg Neuts % (Manual) Lymphocytes % (Manual) Monocytes % (Manual) Eosinophils % (Manual) Basophils % (Manual) Nucleated RBC % Seg Neutrophils # Seg Neutrophils # Man Lymphocytes # (Manual) Monocytes # (Manual) Eosinophils # (Manual) PT INR Fibrinogen dRVVT Confirm Interp Factor V Activity POC ABG pH POC ABG pCO2 33.8 L POC ABG pO2 Sodium Potassium Chloride Carbon Dioxide BUN Creatinine Glucose POC Glucose 191 H 239 H Lactic Acid Calcium Phosphorus Magnesium Direct Bilirubin ALT Alkaline Phosphatase Troponin T C-Reactive Protein Total Protein Albumin Triglycerides Cholesterol LDL Cholesterol Direct HDL Cholesterol Urine WBC (Auto) Urine Creatinine Urine Total Protein Vancomycin Trough Rheumatoid Factor Complement C4 Miscellaneous Test Crossmatch 09/11/16 09/12/16 09/12/16 23:52 05:09 05:32 WBC RBC Hgb Hct MCV MCH MCHC RDW Plt Count Lymph % (Auto) [place] % (Auto) Lymph # [place] # Seg Neutrophils % Seg Neuts % (Manual) Lymphocytes % (Manual) Monocytes % (Manual) Eosinophils % (Manual) Basophils % (Manual) Nucleated RBC % Seg Neutrophils # Seg Neutrophils # Man Lymphocytes # (Manual) Monocytes # (Manual) Eosinophils # (Manual) PT INR Fibrinogen dRVVT Confirm Interp Factor V Activity POC ABG pH POC ABG pCO2 34.6 L POC ABG pO2 Sodium Potassium Chloride Carbon Dioxide BUN Creatinine Glucose POC Glucose 265 H 184 H Lactic Acid Calcium Phosphorus Magnesium Direct Bilirubin ALT Alkaline Phosphatase Troponin T C-Reactive Protein Total Protein Albumin Triglycerides Cholesterol LDL Cholesterol Direct HDL Cholesterol Urine WBC (Auto) Urine Creatinine Urine Total Protein Vancomycin Trough Rheumatoid Factor Complement C4 Miscellaneous Test Crossmatch 09/12/16 09/12/16 09/12/16 06:45 06:45 07:22 WBC 31.7 H RBC 3.54 L Hgb 8.3 L Hct 25.9 L MCV 73 L MCH 23 L MCHC RDW 18.9 H Plt Count Lymph % (Auto) [place] % (Auto) Lymph # [place] # Seg Neutrophils % Seg Neuts % (Manual) 88.5 H Lymphocytes % (Manual) 4.5 L Monocytes % (Manual) Eosinophils % (Manual) Basophils % (Manual) Nucleated RBC % Seg Neutrophils # Seg Neutrophils # Man 28.1 H Lymphocytes # (Manual) Monocytes # (Manual) 1.0 H Eosinophils # (Manual) PT INR Fibrinogen dRVVT Confirm Interp Factor V Activity POC ABG pH POC ABG pCO2 POC ABG pO2 Sodium Potassium Chloride Carbon Dioxide 20 L BUN 115 H Creatinine 2.7 H Glucose 165 H POC Glucose Lactic Acid Calcium 8.0 L Phosphorus Magnesium Direct Bilirubin ALT Alkaline Phosphatase Troponin T C-Reactive Protein Total Protein Albumin Triglycerides 217 H Cholesterol LDL Cholesterol Direct HDL Cholesterol Urine WBC (Auto) Urine Creatinine Urine Total Protein Vancomycin Trough Rheumatoid Factor Complement C4 Miscellaneous Test Crossmatch 09/12/16 09/12/16 09/12/16 07:22 09:59 12:21 WBC RBC Hgb Hct MCV MCH MCHC RDW Plt Count Lymph % (Auto) [place] % (Auto) Lymph # [place] # Seg Neutrophils % Seg Neuts % (Manual) Lymphocytes % (Manual) Monocytes % (Manual) Eosinophils % (Manual) Basophils % (Manual) Nucleated RBC % Seg Neutrophils # Seg Neutrophils # Man Lymphocytes # (Manual) Monocytes # (Manual) Eosinophils # (Manual) PT INR Fibrinogen dRVVT Confirm Interp Positive H Factor V Activity POC ABG pH POC ABG pCO2 POC ABG pO2 Sodium Potassium Chloride Carbon Dioxide BUN Creatinine Glucose POC Glucose 224 H Lactic Acid Calcium Phosphorus Magnesium Direct Bilirubin ALT Alkaline Phosphatase Troponin T C-Reactive Protein 1.70 H Total Protein Albumin Triglycerides Cholesterol LDL Cholesterol Direct HDL Cholesterol Urine WBC (Auto) Urine Creatinine Urine Total Protein Vancomycin Trough Rheumatoid Factor Complement C4 Miscellaneous Test Crossmatch 09/12/16 09/12/16 09/13/16 16:51 23:28 04:00 WBC 45.0 H* RBC Hgb 9.4 L Hct MCV 75 L MCH 23 L MCHC RDW 19.0 H Plt Count 470 H Lymph % (Auto) [place] % (Auto) Lymph # [place] # Seg Neutrophils % Seg Neuts % (Manual) 89.0 H Lymphocytes % (Manual) 5.0 L Monocytes % (Manual) Eosinophils % (Manual) Basophils % (Manual) Nucleated RBC % Seg Neutrophils # Seg Neutrophils # Man 40.1 H Lymphocytes # (Manual) Monocytes # (Manual) Eosinophils # (Manual) PT INR Fibrinogen dRVVT Confirm Interp Factor V Activity POC ABG pH POC ABG pCO2 POC ABG pO2 Sodium Potassium Chloride Carbon Dioxide BUN Creatinine Glucose POC Glucose 169 H 150 H Lactic Acid Calcium Phosphorus Magnesium Direct Bilirubin ALT Alkaline Phosphatase Troponin T C-Reactive Protein Total Protein Albumin Triglycerides Cholesterol LDL Cholesterol Direct HDL Cholesterol Urine WBC (Auto) Urine Creatinine Urine Total Protein Vancomycin Trough Rheumatoid Factor Complement C4 Miscellaneous Test Crossmatch 09/13/16 09/13/16 09/13/16 04:00 11:26 17:31 WBC RBC Hgb Hct MCV MCH MCHC RDW Plt Count Lymph % (Auto) [place] % (Auto) Lymph # [place] # Seg Neutrophils % Seg Neuts % (Manual) Lymphocytes % (Manual) Monocytes % (Manual) Eosinophils % (Manual) Basophils % (Manual) Nucleated RBC % Seg Neutrophils # Seg Neutrophils # Man Lymphocytes # (Manual) Monocytes # (Manual) Eosinophils # (Manual) PT INR Fibrinogen dRVVT Confirm Interp Factor V Activity POC ABG pH POC ABG pCO2 POC ABG pO2 Sodium Potassium Chloride Carbon Dioxide 20 L BUN 116 H Creatinine 3.0 H Glucose 172 H POC Glucose 140 H 183 H Lactic Acid Calcium Phosphorus Magnesium Direct Bilirubin ALT Alkaline Phosphatase Troponin T C-Reactive Protein Total Protein 6.2 L Albumin 2.9 L Triglycerides Cholesterol LDL Cholesterol Direct HDL Cholesterol Urine WBC (Auto) Urine Creatinine Urine Total Protein Vancomycin Trough Rheumatoid Factor Complement C4 Miscellaneous Test Crossmatch 09/13/16 09/14/16 09/14/16 23:23 04:06 04:07 WBC 29.4 H RBC Hgb 8.9 L Hct 27.3 L MCV 75 L MCH 24 L MCHC RDW 19.1 H Plt Count Lymph % (Auto) [place] % (Auto) Lymph # [place] # Seg Neutrophils % Seg Neuts % (Manual) 84.0 H Lymphocytes % (Manual) 6.0 L Monocytes % (Manual) 9.0 H Eosinophils % (Manual) Basophils % (Manual) Nucleated RBC % Seg Neutrophils # Seg Neutrophils # Man 24.7 H Lymphocytes # (Manual) Monocytes # (Manual) 2.6 H Eosinophils # (Manual) PT INR Fibrinogen dRVVT Confirm Interp Factor V Activity POC ABG pH 7.342 L POC ABG pCO2 POC ABG pO2 116 H Sodium Potassium Chloride Carbon Dioxide BUN Creatinine Glucose POC Glucose 154 H Lactic Acid Calcium Phosphorus Magnesium Direct Bilirubin ALT Alkaline Phosphatase Troponin T C-Reactive Protein Total Protein Albumin Triglycerides Cholesterol LDL Cholesterol Direct HDL Cholesterol Urine WBC (Auto) Urine Creatinine Urine Total Protein Vancomycin Trough Rheumatoid Factor Complement C4 Miscellaneous Test Crossmatch 09/14/16 09/14/16 09/14/16 04:07 05:29 12:19 WBC RBC Hgb Hct MCV MCH MCHC RDW Plt Count Lymph % (Auto) [place] % (Auto) Lymph # [place] # Seg Neutrophils % Seg Neuts % (Manual) Lymphocytes % (Manual) Monocytes % (Manual) Eosinophils % (Manual) Basophils % (Manual) Nucleated RBC % Seg Neutrophils # Seg Neutrophils # Man Lymphocytes # (Manual) Monocytes # (Manual) Eosinophils # (Manual) PT INR Fibrinogen dRVVT Confirm Interp Factor V Activity POC ABG pH POC ABG pCO2 POC ABG pO2 Sodium 136 L Potassium Chloride Carbon Dioxide 18 L BUN 121 H Creatinine 2.8 H Glucose 214 H POC Glucose 239 H 181 H Lactic Acid Calcium Phosphorus Magnesium Direct Bilirubin ALT Alkaline Phosphatase Troponin T C-Reactive Protein Total Protein Albumin Triglycerides Cholesterol LDL Cholesterol Direct HDL Cholesterol Urine WBC (Auto) Urine Creatinine Urine Total Protein Vancomycin Trough Rheumatoid Factor Complement C4 Miscellaneous Test Crossmatch 09/14/16 09/14/16 09/15/16 18:12 23:37 05:00 WBC 26.1 H RBC 3.05 L Hgb 7.2 L Hct 22.9 L MCV 75 L MCH 24 L MCHC RDW 19.0 H Plt Count Lymph % (Auto) [place] % (Auto) Lymph # [place] # Seg Neutrophils % Seg Neuts % (Manual) Lymphocytes % (Manual) Monocytes % (Manual) Eosinophils % (Manual) Basophils % (Manual) Nucleated RBC % Seg Neutrophils # Seg Neutrophils # Man Lymphocytes # (Manual) Monocytes # (Manual) Eosinophils # (Manual) PT INR Fibrinogen dRVVT Confirm Interp Factor V Activity POC ABG pH POC ABG pCO2 POC ABG pO2 Sodium Potassium Chloride Carbon Dioxide BUN Creatinine Glucose POC Glucose 266 H 154 H Lactic Acid Calcium Phosphorus Magnesium Direct Bilirubin ALT Alkaline Phosphatase Troponin T C-Reactive Protein Total Protein Albumin Triglycerides Cholesterol LDL Cholesterol Direct HDL Cholesterol Urine WBC (Auto) Urine Creatinine Urine Total Protein Vancomycin Trough Rheumatoid Factor Complement C4 Miscellaneous Test Crossmatch 09/15/16 09/15/16 09/15/16 05:00 05:17 12:45 WBC RBC Hgb Hct MCV MCH MCHC RDW Plt Count Lymph % (Auto) [place] % (Auto) Lymph # [place] # Seg Neutrophils % Seg Neuts % (Manual) Lymphocytes % (Manual) Monocytes % (Manual) Eosinophils % (Manual) Basophils % (Manual) Nucleated RBC % Seg Neutrophils # Seg Neutrophils # Man Lymphocytes # (Manual) Monocytes # (Manual) Eosinophils # (Manual) PT INR Fibrinogen dRVVT Confirm Interp Factor V Activity POC ABG pH POC ABG pCO2 POC ABG pO2 Sodium Potassium 5.2 H Chloride Carbon Dioxide 18 L BUN 139 H Creatinine 3.7 H Glucose 227 H POC Glucose 226 H 244 H Lactic Acid Calcium 8.3 L Phosphorus Magnesium Direct Bilirubin ALT Alkaline Phosphatase Troponin T C-Reactive Protein Total Protein Albumin Triglycerides Cholesterol LDL Cholesterol Direct HDL Cholesterol Urine WBC (Auto) Urine Creatinine Urine Total Protein Vancomycin Trough Rheumatoid Factor Complement C4 Miscellaneous Test Crossmatch 09/15/16 09/15/16 09/15/16 14:32 17:33 23:35 WBC RBC Hgb Hct MCV MCH MCHC RDW Plt Count Lymph % (Auto) [place] % (Auto) Lymph # [place] # Seg Neutrophils % Seg Neuts % (Manual) Lymphocytes % (Manual) Monocytes % (Manual) Eosinophils % (Manual) Basophils % (Manual) Nucleated RBC % Seg Neutrophils # Seg Neutrophils # Man Lymphocytes # (Manual) Monocytes # (Manual) Eosinophils # (Manual) PT INR Fibrinogen dRVVT Confirm Interp Factor V Activity POC ABG pH POC ABG pCO2 27.7 L POC ABG pO2 120 H Sodium Potassium Chloride Carbon Dioxide BUN Creatinine Glucose POC Glucose 232 H 167 H Lactic Acid Calcium Phosphorus Magnesium Direct Bilirubin ALT Alkaline Phosphatase Troponin T C-Reactive Protein Total Protein Albumin Triglycerides Cholesterol LDL Cholesterol Direct HDL Cholesterol Urine WBC (Auto) Urine Creatinine Urine Total Protein Vancomycin Trough Rheumatoid Factor Complement C4 Miscellaneous Test Crossmatch 09/16/16 09/16/16 09/16/16 03:58 10:27 10:27 WBC 19.0 H RBC 2.77 L Hgb 6.5 L Hct 20.9 L MCV 76 L MCH 23 L MCHC RDW 19.3 H Plt Count Lymph % (Auto) 11.0 L [place] % (Auto) Lymph # [place] # 1.1 H Seg Neutrophils % 82.5 H Seg Neuts % (Manual) Lymphocytes % (Manual) Monocytes % (Manual) Eosinophils % (Manual) Basophils % (Manual) Nucleated RBC % Seg Neutrophils # 15.7 H Seg Neutrophils # Man Lymphocytes # (Manual) Monocytes # (Manual) Eosinophils # (Manual) PT INR Fibrinogen dRVVT Confirm Interp Factor V Activity POC ABG pH POC ABG pCO2 POC ABG pO2 Sodium Potassium Chloride 109.3 H Carbon Dioxide 18 L BUN 139 H Creatinine 4.1 H Glucose 144 H POC Glucose 146 H Lactic Acid Calcium 8.1 L Phosphorus Magnesium Direct Bilirubin ALT Alkaline Phosphatase Troponin T C-Reactive Protein Total Protein Albumin Triglycerides Cholesterol LDL Cholesterol Direct HDL Cholesterol Urine WBC (Auto) Urine Creatinine Urine Total Protein Vancomycin Trough Rheumatoid Factor Complement C4 Miscellaneous Test Crossmatch 09/16/16 09/16/16 09/16/16 12:04 12:10 13:55 WBC RBC Hgb Hct MCV MCH MCHC RDW Plt Count Lymph % (Auto) [place] % (Auto) Lymph # [place] # Seg Neutrophils % Seg Neuts % (Manual) Lymphocytes % (Manual) Monocytes % (Manual) Eosinophils % (Manual) Basophils % (Manual) Nucleated RBC % Seg Neutrophils # Seg Neutrophils # Man Lymphocytes # (Manual) Monocytes # (Manual) Eosinophils # (Manual) PT INR Fibrinogen dRVVT Confirm Interp Factor V Activity POC ABG pH POC ABG pCO2 32.9 L POC ABG pO2 Sodium Potassium Chloride Carbon Dioxide BUN Creatinine Glucose POC Glucose 185 H Lactic Acid Calcium Phosphorus Magnesium Direct Bilirubin ALT Alkaline Phosphatase Troponin T C-Reactive Protein Total Protein Albumin Triglycerides Cholesterol LDL Cholesterol Direct HDL Cholesterol Urine WBC (Auto) Urine Creatinine Urine Total Protein Vancomycin Trough Rheumatoid Factor Complement C4 Miscellaneous Test Crossmatch See Detail 09/16/16 09/16/16 09/16/16 17:55 19:19 23:48 WBC RBC Hgb Hct MCV MCH MCHC RDW Plt Count Lymph % (Auto) [place] % (Auto) Lymph # [place] # Seg Neutrophils % Seg Neuts % (Manual) Lymphocytes % (Manual) Monocytes % (Manual) Eosinophils % (Manual) Basophils % (Manual) Nucleated RBC % Seg Neutrophils # Seg Neutrophils # Man Lymphocytes # (Manual) Monocytes # (Manual) Eosinophils # (Manual) PT INR Fibrinogen dRVVT Confirm Interp Factor V Activity POC ABG pH POC ABG pCO2 POC ABG pO2 Sodium Potassium Chloride Carbon Dioxide BUN Creatinine Glucose POC Glucose 222 H 107 H Lactic Acid Calcium Phosphorus Magnesium Direct Bilirubin ALT Alkaline Phosphatase Troponin T C-Reactive Protein Total Protein Albumin Triglycerides Cholesterol LDL Cholesterol Direct HDL Cholesterol Urine WBC (Auto) Urine Creatinine 47.4 H Urine Total Protein 16 H Vancomycin Trough Rheumatoid Factor Complement C4 Miscellaneous Test Crossmatch 09/17/16 09/17/16 09/17/16 03:45 03:45 04:55 WBC 19.6 H RBC 3.41 L Hgb 8.5 L Hct 26.7 L MCV 78 L MCH 25 L MCHC RDW 19.9 H Plt Count Lymph % (Auto) 9.3 L [place] % (Auto) Lymph # [place] # 1.2 H Seg Neutrophils % 83.9 H Seg Neuts % (Manual) Lymphocytes % (Manual) Monocytes % (Manual) Eosinophils % (Manual) Basophils % (Manual) Nucleated RBC % Seg Neutrophils # 16.4 H Seg Neutrophils # Man Lymphocytes # (Manual) Monocytes # (Manual) Eosinophils # (Manual) PT INR Fibrinogen dRVVT Confirm Interp Factor V Activity POC ABG pH POC ABG pCO2 POC ABG pO2 Sodium 146 H Potassium 5.1 H Chloride 110.9 H Carbon Dioxide 16 L BUN 146 H Creatinine 4.0 H Glucose 108 H POC Glucose 133 H Lactic Acid Calcium Phosphorus Magnesium 3.00 H Direct Bilirubin ALT Alkaline Phosphatase Troponin T C-Reactive Protein Total Protein Albumin Triglycerides Cholesterol LDL Cholesterol Direct HDL Cholesterol Urine WBC (Auto) Urine Creatinine Urine Total Protein Vancomycin Trough Rheumatoid Factor Complement C4 Miscellaneous Test Crossmatch 09/17/16 09/17/16 09/17/16 11:15 17:33 23:47 WBC RBC Hgb Hct MCV MCH MCHC RDW Plt Count Lymph % (Auto) [place] % (Auto) Lymph # [place] # Seg Neutrophils % Seg Neuts % (Manual) Lymphocytes % (Manual) Monocytes % (Manual) Eosinophils % (Manual) Basophils % (Manual) Nucleated RBC % Seg Neutrophils # Seg Neutrophils # Man Lymphocytes # (Manual) Monocytes # (Manual) Eosinophils # (Manual) PT INR Fibrinogen dRVVT Confirm Interp Factor V Activity POC ABG pH POC ABG pCO2 POC ABG pO2 Sodium Potassium Chloride Carbon Dioxide BUN Creatinine Glucose POC Glucose 176 H 246 H 148 H Lactic Acid Calcium Phosphorus Magnesium Direct Bilirubin ALT Alkaline Phosphatase Troponin T C-Reactive Protein Total Protein Albumin Triglycerides Cholesterol LDL Cholesterol Direct HDL Cholesterol Urine WBC (Auto) Urine Creatinine Urine Total Protein Vancomycin Trough Rheumatoid Factor Complement C4 Miscellaneous Test Crossmatch 09/18/16 09/18/16 09/18/16 05:33 08:31 08:31 WBC 18.0 H RBC 3.17 L Hgb 9.0 L Hct 25.7 L MCV MCH MCHC 35 H RDW 20.4 H Plt Count Lymph % (Auto) [place] % (Auto) Lymph # [place] # Seg Neutrophils % Seg Neuts % (Manual) Lymphocytes % (Manual) Monocytes % (Manual) Eosinophils % (Manual) Basophils % (Manual) Nucleated RBC % Seg Neutrophils # Seg Neutrophils # Man Lymphocytes # (Manual) Monocytes # (Manual) Eosinophils # (Manual) PT INR Fibrinogen dRVVT Confirm Interp Factor V Activity POC ABG pH POC ABG pCO2 POC ABG pO2 Sodium Potassium Chloride Carbon Dioxide 15 L BUN 124 H Creatinine 3.8 H Glucose POC Glucose 120 H Lactic Acid Calcium 8.1 L Phosphorus Magnesium Direct Bilirubin ALT Alkaline Phosphatase Troponin T C-Reactive Protein Total Protein Albumin Triglycerides Cholesterol LDL Cholesterol Direct HDL Cholesterol Urine WBC (Auto) Urine Creatinine Urine Total Protein Vancomycin Trough Rheumatoid Factor Complement C4 Miscellaneous Test Crossmatch 09/18/16 09/18/16 09/18/16 12:03 15:34 17:50 WBC RBC Hgb Hct MCV MCH MCHC RDW Plt Count Lymph % (Auto) [place] % (Auto) Lymph # [place] # Seg Neutrophils % Seg Neuts % (Manual) Lymphocytes % (Manual) Monocytes % (Manual) Eosinophils % (Manual) Basophils % (Manual) Nucleated RBC % Seg Neutrophils # Seg Neutrophils # Man Lymphocytes # (Manual) Monocytes # (Manual) Eosinophils # (Manual) PT INR Fibrinogen dRVVT Confirm Interp Factor V Activity POC ABG pH POC ABG pCO2 25.7 L POC ABG pO2 66 L Sodium Potassium Chloride Carbon Dioxide BUN Creatinine Glucose POC Glucose 156 H 220 H Lactic Acid Calcium Phosphorus Magnesium Direct Bilirubin ALT Alkaline Phosphatase Troponin T C-Reactive Protein Total Protein Albumin Triglycerides Cholesterol LDL Cholesterol Direct HDL Cholesterol Urine WBC (Auto) Urine Creatinine Urine Total Protein Vancomycin Trough Rheumatoid Factor Complement C4 Miscellaneous Test Crossmatch 09/19/16 09/19/16 09/19/16 06:21 09:50 09:50 WBC 17.1 H RBC 3.49 L Hgb 9.0 L Hct 28.1 L MCV MCH 26 L MCHC RDW 20.8 H Plt Count Lymph % (Auto) 11.5 L [place] % (Auto) 7.5 H Lymph # [place] # 1.3 H Seg Neutrophils % 79.8 H Seg Neuts % (Manual) Lymphocytes % (Manual) Monocytes % (Manual) Eosinophils % (Manual) Basophils % (Manual) Nucleated RBC % Seg Neutrophils # 13.7 H Seg Neutrophils # Man Lymphocytes # (Manual) Monocytes # (Manual) Eosinophils # (Manual) PT INR Fibrinogen dRVVT Confirm Interp Factor V Activity POC ABG pH POC ABG pCO2 POC ABG pO2 Sodium Potassium Chloride 108.6 H Carbon Dioxide 15 L BUN 125 H Creatinine 4.1 H Glucose 124 H POC Glucose 119 H Lactic Acid Calcium Phosphorus Magnesium Direct Bilirubin ALT Alkaline Phosphatase Troponin T C-Reactive Protein Total Protein Albumin Triglycerides Cholesterol LDL Cholesterol Direct HDL Cholesterol Urine WBC (Auto) Urine Creatinine Urine Total Protein Vancomycin Trough Rheumatoid Factor Complement C4 Miscellaneous Test Crossmatch 09/19/16 09/19/16 09/19/16 11:25 17:53 23:36 WBC RBC Hgb Hct MCV MCH MCHC RDW Plt Count Lymph % (Auto) [place] % (Auto) Lymph # [place] # Seg Neutrophils % Seg Neuts % (Manual) Lymphocytes % (Manual) Monocytes % (Manual) Eosinophils % (Manual) Basophils % (Manual) Nucleated RBC % Seg Neutrophils # Seg Neutrophils # Man Lymphocytes # (Manual) Monocytes # (Manual) Eosinophils # (Manual) PT INR Fibrinogen dRVVT Confirm Interp Factor V Activity POC ABG pH POC ABG pCO2 POC ABG pO2 Sodium Potassium Chloride Carbon Dioxide BUN Creatinine Glucose POC Glucose 160 H 245 H 121 H Lactic Acid Calcium Phosphorus Magnesium Direct Bilirubin ALT Alkaline Phosphatase Troponin T C-Reactive Protein Total Protein Albumin Triglycerides Cholesterol LDL Cholesterol Direct HDL Cholesterol Urine WBC (Auto) Urine Creatinine Urine Total Protein Vancomycin Trough Rheumatoid Factor Complement C4 Miscellaneous Test Crossmatch 09/20/16 09/20/16 09/20/16 04:10 04:10 04:10 WBC 17.0 H RBC 3.21 L Hgb 8.2 L Hct 25.5 L MCV MCH 26 L MCHC RDW 20.9 H Plt Count Lymph % (Auto) [place] % (Auto) Lymph # [place] # Seg Neutrophils % Seg Neuts % (Manual) Lymphocytes % (Manual) Monocytes % (Manual) Eosinophils % (Manual) Basophils % (Manual) Nucleated RBC % Seg Neutrophils # Seg Neutrophils # Man Lymphocytes # (Manual) Monocytes # (Manual) Eosinophils # (Manual) PT INR Fibrinogen dRVVT Confirm Interp Factor V Activity POC ABG pH POC ABG pCO2 POC ABG pO2 Sodium Potassium Chloride 111.0 H Carbon Dioxide 16 L BUN 129 H Creatinine 3.7 H Glucose 115 H POC Glucose Lactic Acid Calcium 8.2 L Phosphorus Magnesium Direct Bilirubin ALT Alkaline Phosphatase Troponin T C-Reactive Protein Total Protein Albumin Triglycerides 243 H Cholesterol LDL Cholesterol Direct HDL Cholesterol Urine WBC (Auto) Urine Creatinine Urine Total Protein Vancomycin Trough Rheumatoid Factor Complement C4 Miscellaneous Test Crossmatch 09/20/16 09/20/16 09/20/16 05:40 11:52 16:50 WBC RBC Hgb Hct MCV MCH MCHC RDW Plt Count Lymph % (Auto) [place] % (Auto) Lymph # [place] # Seg Neutrophils % Seg Neuts % (Manual) Lymphocytes % (Manual) Monocytes % (Manual) Eosinophils % (Manual) Basophils % (Manual) Nucleated RBC % Seg Neutrophils # Seg Neutrophils # Man Lymphocytes # (Manual) Monocytes # (Manual) Eosinophils # (Manual) PT INR Fibrinogen dRVVT Confirm Interp Factor V Activity POC ABG pH POC ABG pCO2 POC ABG pO2 Sodium Potassium Chloride Carbon Dioxide BUN Creatinine Glucose POC Glucose 131 H 183 H 236 H Lactic Acid Calcium Phosphorus Magnesium Direct Bilirubin ALT Alkaline Phosphatase Troponin T C-Reactive Protein Total Protein Albumin Triglycerides Cholesterol LDL Cholesterol Direct HDL Cholesterol Urine WBC (Auto) Urine Creatinine Urine Total Protein Vancomycin Trough Rheumatoid Factor Complement C4 Miscellaneous Test Crossmatch 09/20/16 09/21/16 09/21/16 23:51 03:30 04:44 WBC RBC Hgb Hct MCV MCH MCHC RDW Plt Count Lymph % (Auto) [place] % (Auto) Lymph # [place] # Seg Neutrophils % Seg Neuts % (Manual) Lymphocytes % (Manual) Monocytes % (Manual) Eosinophils % (Manual) Basophils % (Manual) Nucleated RBC % Seg Neutrophils # Seg Neutrophils # Man Lymphocytes # (Manual) Monocytes # (Manual) Eosinophils # (Manual) PT INR Fibrinogen dRVVT Confirm Interp Factor V Activity POC ABG pH POC ABG pCO2 POC ABG pO2 Sodium Potassium Chloride Carbon Dioxide BUN Creatinine Glucose POC Glucose 114 H 141 H Lactic Acid Calcium Phosphorus Magnesium 2.70 H Direct Bilirubin ALT Alkaline Phosphatase Troponin T C-Reactive Protein Total Protein Albumin Triglycerides Cholesterol LDL Cholesterol Direct HDL Cholesterol Urine WBC (Auto) Urine Creatinine Urine Total Protein Vancomycin Trough Rheumatoid Factor Complement C4 Miscellaneous Test Crossmatch 09/21/16 09/21/16 09/21/16 07:45 07:45 10:01 WBC 13.8 H RBC 2.94 L Hgb 7.5 L Hct 23.5 L MCV MCH 26 L MCHC RDW 21.2 H Plt Count Lymph % (Auto) 6.9 L [place]kinson % (Auto) 9.4 H Lymph # 0.9 L [place]kinson # 1.3 H Seg Neutrophils % 83.2 H Seg Neuts % (Manual) Lymphocytes % (Manual) Monocytes % (Manual) Eosinophils % (Manual) Basophils % (Manual) Nucleated RBC % Seg Neutrophils # 11.5 H Seg Neutrophils # Man Lymphocytes # (Manual) Monocytes # (Manual) Eosinophils # (Manual) PT INR Fibrinogen dRVVT Confirm Interp Factor V Activity POC ABG pH 7.308 L POC ABG pCO2 31.9 L POC ABG pO2 148 H Sodium 147 H Potassium Chloride 114.2 H Carbon Dioxide 15 L BUN 120 H Creatinine 3.9 H Glucose 156 H POC Glucose Lactic Acid Calcium 8.2 L Phosphorus Magnesium Direct Bilirubin ALT Alkaline Phosphatase Troponin T C-Reactive Protein Total Protein Albumin Triglycerides Cholesterol LDL Cholesterol Direct HDL Cholesterol Urine WBC (Auto) Urine Creatinine Urine Total Protein Vancomycin Trough Rheumatoid Factor Complement C4 Miscellaneous Test Crossmatch 09/21/16 09/21/16 09/21/16 12:00 12:03 13:00 WBC RBC Hgb Hct MCV MCH MCHC RDW Plt Count Lymph % (Auto) [place] % (Auto) Lymph # [place] # Seg Neutrophils % Seg Neuts % (Manual) Lymphocytes % (Manual) Monocytes % (Manual) Eosinophils % (Manual) Basophils % (Manual) Nucleated RBC % Seg Neutrophils # Seg Neutrophils # Man Lymphocytes # (Manual) Monocytes # (Manual) Eosinophils # (Manual) PT INR Fibrinogen dRVVT Confirm Interp Factor V Activity POC ABG pH POC ABG pCO2 POC ABG pO2 Sodium Potassium Chloride Carbon Dioxide BUN Creatinine Glucose POC Glucose 163 H Lactic Acid Calcium Phosphorus Magnesium Direct Bilirubin ALT Alkaline Phosphatase Troponin T C-Reactive Protein Total Protein Albumin Triglycerides Cholesterol LDL Cholesterol Direct HDL Cholesterol Urine WBC (Auto) Urine Creatinine 54.8 H Urine Total Protein Vancomycin Trough 2.3 L Rheumatoid Factor Complement C4 Miscellaneous Test Crossmatch 09/21/16 09/21/16 09/22/16 16:51 23:17 06:27 WBC RBC Hgb Hct MCV MCH MCHC RDW Plt Count Lymph % (Auto) [place] % (Auto) Lymph # [place] # Seg Neutrophils % Seg Neuts % (Manual) Lymphocytes % (Manual) Monocytes % (Manual) Eosinophils % (Manual) Basophils % (Manual) Nucleated RBC % Seg Neutrophils # Seg Neutrophils # Man Lymphocytes # (Manual) Monocytes # (Manual) Eosinophils # (Manual) PT INR Fibrinogen dRVVT Confirm Interp Factor V Activity POC ABG pH POC ABG pCO2 POC ABG pO2 Sodium Potassium Chloride Carbon Dioxide BUN Creatinine Glucose POC Glucose 206 H 114 H 115 H Lactic Acid Calcium Phosphorus Magnesium Direct Bilirubin ALT Alkaline Phosphatase Troponin T C-Reactive Protein Total Protein Albumin Triglycerides Cholesterol LDL Cholesterol Direct HDL Cholesterol Urine WBC (Auto) Urine Creatinine Urine Total Protein Vancomycin Trough Rheumatoid Factor Complement C4 Miscellaneous Test Crossmatch 09/22/16 09/22/16 09/22/16 07:50 07:50 12:00 WBC 17.8 H RBC 3.04 L Hgb 8.0 L Hct 24.7 L MCV MCH 26 L MCHC RDW 21.6 H Plt Count Lymph % (Auto) [place] % (Auto) Lymph # [place] # Seg Neutrophils % Seg Neuts % (Manual) Lymphocytes % (Manual) Monocytes % (Manual) Eosinophils % (Manual) Basophils % (Manual) Nucleated RBC % Seg Neutrophils # Seg Neutrophils # Man Lymphocytes # (Manual) Monocytes # (Manual) Eosinophils # (Manual) PT INR Fibrinogen dRVVT Confirm Interp Factor V Activity POC ABG pH POC ABG pCO2 POC ABG pO2 Sodium 150 H Potassium Chloride 118.2 H Carbon Dioxide 14 L BUN 111 H Creatinine 3.7 H Glucose 157 H POC Glucose 183 H Lactic Acid Calcium Phosphorus Magnesium Direct Bilirubin ALT Alkaline Phosphatase Troponin T C-Reactive Protein Total Protein Albumin Triglycerides Cholesterol LDL Cholesterol Direct HDL Cholesterol Urine WBC (Auto) Urine Creatinine Urine Total Protein Vancomycin Trough Rheumatoid Factor Complement C4 Miscellaneous Test Crossmatch 09/22/16 09/22/16 09/23/16 17:29 23:10 05:00 WBC 19.2 H RBC 3.13 L Hgb 8.0 L Hct 25.2 L MCV MCH 26 L MCHC RDW 22.1 H Plt Count Lymph % (Auto) [place] % (Auto) Lymph # [place] # Seg Neutrophils % Seg Neuts % (Manual) 92.0 H Lymphocytes % (Manual) 3.0 L Monocytes % (Manual) Eosinophils % (Manual) Basophils % (Manual) Nucleated RBC % Seg Neutrophils # Seg Neutrophils # Man 17.7 H Lymphocytes # (Manual) 0.6 L Monocytes # (Manual) Eosinophils # (Manual) PT INR Fibrinogen dRVVT Confirm Interp Factor V Activity POC ABG pH POC ABG pCO2 POC ABG pO2 Sodium Potassium Chloride Carbon Dioxide BUN Creatinine Glucose POC Glucose 197 H 169 H Lactic Acid Calcium Phosphorus Magnesium Direct Bilirubin ALT Alkaline Phosphatase Troponin T C-Reactive Protein Total Protein Albumin Triglycerides Cholesterol LDL Cholesterol Direct HDL Cholesterol Urine WBC (Auto) Urine Creatinine Urine Total Protein Vancomycin Trough Rheumatoid Factor Complement C4 Miscellaneous Test Crossmatch 09/23/16 09/23/16 09/23/16 05:00 05:00 05:10 WBC RBC Hgb Hct MCV MCH MCHC RDW Plt Count Lymph % (Auto) [place] % (Auto) Lymph # [place] # Seg Neutrophils % Seg Neuts % (Manual) Lymphocytes % (Manual) Monocytes % (Manual) Eosinophils % (Manual) Basophils % (Manual) Nucleated RBC % Seg Neutrophils # Seg Neutrophils # Man Lymphocytes # (Manual) Monocytes # (Manual) Eosinophils # (Manual) PT INR Fibrinogen dRVVT Confirm Interp Factor V Activity POC ABG pH POC ABG pCO2 POC ABG pO2 Sodium 147 H Potassium 3.2 L Chloride 115.7 H Carbon Dioxide 13 L BUN 111 H Creatinine 3.8 H Glucose 194 H POC Glucose 188 H Lactic Acid Calcium 7.3 L D Phosphorus Magnesium Direct Bilirubin ALT Alkaline Phosphatase Troponin T C-Reactive Protein 3.20 H Total Protein Albumin Triglycerides Cholesterol LDL Cholesterol Direct HDL Cholesterol Urine WBC (Auto) Urine Creatinine Urine Total Protein Vancomycin Trough Rheumatoid Factor Complement C4 Miscellaneous Test Crossmatch 09/23/16 09/23/16 09/23/16 11:37 12:29 18:01 WBC RBC Hgb Hct MCV MCH MCHC RDW Plt Count Lymph % (Auto) [place] % (Auto) Lymph # [place] # Seg Neutrophils % Seg Neuts % (Manual) Lymphocytes % (Manual) Monocytes % (Manual) Eosinophils % (Manual) Basophils % (Manual) Nucleated RBC % Seg Neutrophils # Seg Neutrophils # Man Lymphocytes # (Manual) Monocytes # (Manual) Eosinophils # (Manual) PT INR Fibrinogen dRVVT Confirm Interp Factor V Activity POC ABG pH POC ABG pCO2 18.9 L POC ABG pO2 143 H Sodium Potassium Chloride Carbon Dioxide BUN Creatinine Glucose POC Glucose 153 H 108 H Lactic Acid Calcium Phosphorus Magnesium Direct Bilirubin ALT Alkaline Phosphatase Troponin T C-Reactive Protein Total Protein Albumin Triglycerides Cholesterol LDL Cholesterol Direct HDL Cholesterol Urine WBC (Auto) Urine Creatinine Urine Total Protein Vancomycin Trough Rheumatoid Factor Complement C4 Miscellaneous Test Crossmatch 09/23/16 09/23/16 09/24/16 21:19 23:43 05:16 WBC RBC Hgb Hct MCV MCH MCHC RDW Plt Count Lymph % (Auto) [place] % (Auto) Lymph # [place] # Seg Neutrophils % Seg Neuts % (Manual) Lymphocytes % (Manual) Monocytes % (Manual) Eosinophils % (Manual) Basophils % (Manual) Nucleated RBC % Seg Neutrophils # Seg Neutrophils # Man Lymphocytes # (Manual) Monocytes # (Manual) Eosinophils # (Manual) PT INR Fibrinogen dRVVT Confirm Interp Factor V Activity POC ABG pH POC ABG pCO2 17.3 L POC ABG pO2 112 H Sodium Potassium Chloride Carbon Dioxide BUN Creatinine Glucose POC Glucose 143 H 164 H Lactic Acid Calcium Phosphorus Magnesium Direct Bilirubin ALT Alkaline Phosphatase Troponin T C-Reactive Protein Total Protein Albumin Triglycerides Cholesterol LDL Cholesterol Direct HDL Cholesterol Urine WBC (Auto) Urine Creatinine Urine Total Protein Vancomycin Trough Rheumatoid Factor Complement C4 Miscellaneous Test Crossmatch 09/24/16 09/24/16 09/24/16 05:21 11:58 17:06 WBC RBC Hgb Hct MCV MCH MCHC RDW Plt Count Lymph % (Auto) [place] % (Auto) Lymph # [place] # Seg Neutrophils % Seg Neuts % (Manual) Lymphocytes % (Manual) Monocytes % (Manual) Eosinophils % (Manual) Basophils % (Manual) Nucleated RBC % Seg Neutrophils # Seg Neutrophils # Man Lymphocytes # (Manual) Monocytes # (Manual) Eosinophils # (Manual) PT INR Fibrinogen dRVVT Confirm Interp Factor V Activity POC ABG pH POC ABG pCO2 POC ABG pO2 Sodium Potassium Chloride Carbon Dioxide 10 L BUN 103 H Creatinine 4.3 H Glucose 163 H POC Glucose 173 H 167 H Lactic Acid Calcium 6.5 L Phosphorus Magnesium Direct Bilirubin ALT Alkaline Phosphatase Troponin T C-Reactive Protein Total Protein Albumin Triglycerides Cholesterol LDL Cholesterol Direct HDL Cholesterol Urine WBC (Auto) Urine Creatinine Urine Total Protein Vancomycin Trough Rheumatoid Factor Complement C4 Miscellaneous Test Crossmatch 09/24/16 09/24/16 09/24/16 20:15 21:02 23:48 WBC RBC Hgb Hct MCV MCH MCHC RDW Plt Count Lymph % (Auto) [place] % (Auto) Lymph # [place] # Seg Neutrophils % Seg Neuts % (Manual) Lymphocytes % (Manual) Monocytes % (Manual) Eosinophils % (Manual) Basophils % (Manual) Nucleated RBC % Seg Neutrophils # Seg Neutrophils # Man Lymphocytes # (Manual) Monocytes # (Manual) Eosinophils # (Manual) PT INR Fibrinogen dRVVT Confirm Interp Factor V Activity POC ABG pH 7.288 L POC ABG pCO2 30.2 L 21.5 L POC ABG pO2 32 L 39 L Sodium Potassium Chloride Carbon Dioxide BUN Creatinine Glucose POC Glucose 109 H Lactic Acid Calcium Phosphorus Magnesium Direct Bilirubin ALT Alkaline Phosphatase Troponin T C-Reactive Protein Total Protein Albumin Triglycerides Cholesterol LDL Cholesterol Direct HDL Cholesterol Urine WBC (Auto) Urine Creatinine Urine Total Protein Vancomycin Trough Rheumatoid Factor Complement C4 Miscellaneous Test Crossmatch 09/25/16 09/25/16 09/25/16 04:20 04:20 04:20 WBC RBC 2.58 L Hgb 7.0 L Hct 21.0 L MCV MCH 27 L MCHC RDW 23.8 H Plt Count Lymph % (Auto) [place] % (Auto) Lymph # [place] # Seg Neutrophils % Seg Neuts % (Manual) Lymphocytes % (Manual) 12.0 L Monocytes % (Manual) Eosinophils % (Manual) 7.0 H Basophils % (Manual) 2.0 H Nucleated RBC % Seg Neutrophils # Seg Neutrophils # Man Lymphocytes # (Manual) 0.9 L Monocytes # (Manual) Eosinophils # (Manual) 0.5 H PT INR Fibrinogen dRVVT Confirm Interp Factor V Activity POC ABG pH POC ABG pCO2 POC ABG pO2 Sodium Potassium Chloride Carbon Dioxide 15 L BUN 72 H Creatinine 3.8 H Glucose POC Glucose Lactic Acid Calcium 6.0 L Phosphorus 4.60 H Magnesium 1.60 L Direct Bilirubin ALT Alkaline Phosphatase Troponin T C-Reactive Protein Total Protein Albumin Triglycerides Cholesterol LDL Cholesterol Direct HDL Cholesterol Urine WBC (Auto) Urine Creatinine Urine Total Protein Vancomycin Trough Rheumatoid Factor Complement C4 Miscellaneous Test Crossmatch 09/25/16 09/25/16 09/25/16 04:57 08:02 10:30 WBC RBC Hgb Hct MCV MCH MCHC RDW Plt Count Lymph % (Auto) [place] % (Auto) Lymph # [place] # Seg Neutrophils % Seg Neuts % (Manual) Lymphocytes % (Manual) Monocytes % (Manual) Eosinophils % (Manual) Basophils % (Manual) Nucleated RBC % Seg Neutrophils # Seg Neutrophils # Man Lymphocytes # (Manual) Monocytes # (Manual) Eosinophils # (Manual) PT INR Fibrinogen dRVVT Confirm Interp Factor V Activity POC ABG pH POC ABG pCO2 24.7 L POC ABG pO2 152 H Sodium Potassium Chloride Carbon Dioxide BUN Creatinine Glucose POC Glucose 113 H Lactic Acid Calcium Phosphorus Magnesium Direct Bilirubin ALT Alkaline Phosphatase Troponin T C-Reactive Protein Total Protein Albumin Triglycerides Cholesterol LDL Cholesterol Direct HDL Cholesterol Urine WBC (Auto) Urine Creatinine Urine Total Protein Vancomycin Trough Rheumatoid Factor Complement C4 Miscellaneous Test Crossmatch See Detail 09/25/16 09/25/16 09/25/16 12:05 17:44 23:47 WBC RBC Hgb Hct MCV MCH MCHC RDW Plt Count Lymph % (Auto) [place] % (Auto) Lymph # [place] # Seg Neutrophils % Seg Neuts % (Manual) Lymphocytes % (Manual) Monocytes % (Manual) Eosinophils % (Manual) Basophils % (Manual) Nucleated RBC % Seg Neutrophils # Seg Neutrophils # Man Lymphocytes # (Manual) Monocytes # (Manual) Eosinophils # (Manual) PT INR Fibrinogen dRVVT Confirm Interp Factor V Activity POC ABG pH POC ABG pCO2 POC ABG pO2 Sodium Potassium Chloride Carbon Dioxide BUN Creatinine Glucose POC Glucose 117 H 119 H 150 H Lactic Acid Calcium Phosphorus Magnesium Direct Bilirubin ALT Alkaline Phosphatase Troponin T C-Reactive Protein Total Protein Albumin Triglycerides Cholesterol LDL Cholesterol Direct HDL Cholesterol Urine WBC (Auto) Urine Creatinine Urine Total Protein Vancomycin Trough Rheumatoid Factor Complement C4 Miscellaneous Test Crossmatch 09/26/16 09/26/16 09/26/16 04:25 04:25 04:25 WBC RBC 2.65 L Hgb 7.4 L Hct 21.6 L MCV MCH MCHC RDW 22.5 H Plt Count Lymph % (Auto) [place] % (Auto) Lymph # [place] # Seg Neutrophils % Seg Neuts % (Manual) Lymphocytes % (Manual) 6.0 L Monocytes % (Manual) Eosinophils % (Manual) 11.0 H Basophils % (Manual) Nucleated RBC % Seg Neutrophils # Seg Neutrophils # Man Lymphocytes # (Manual) 0.4 L Monocytes # (Manual) Eosinophils # (Manual) 0.6 H PT INR Fibrinogen dRVVT Confirm Interp Factor V Activity POC ABG pH POC ABG pCO2 POC ABG pO2 Sodium Potassium Chloride 97.0 L Carbon Dioxide 19 L BUN 43 H Creatinine 2.6 H Glucose 130 H POC Glucose Lactic Acid 4.40 H* Calcium 6.7 L Phosphorus Magnesium Direct Bilirubin ALT Alkaline Phosphatase Troponin T C-Reactive Protein Total Protein Albumin Triglycerides Cholesterol LDL Cholesterol Direct HDL Cholesterol Urine WBC (Auto) Urine Creatinine Urine Total Protein Vancomycin Trough Rheumatoid Factor Complement C4 Miscellaneous Test Crossmatch 09/26/16 09/26/16 09/26/16 05:20 11:44 12:12 WBC RBC Hgb Hct MCV MCH MCHC RDW Plt Count Lymph % (Auto) [place] % (Auto) Lymph # [place] # Seg Neutrophils % Seg Neuts % (Manual) Lymphocytes % (Manual) Monocytes % (Manual) Eosinophils % (Manual) Basophils % (Manual) Nucleated RBC % Seg Neutrophils # Seg Neutrophils # Man Lymphocytes # (Manual) Monocytes # (Manual) Eosinophils # (Manual) PT INR Fibrinogen dRVVT Confirm Interp Factor V Activity POC ABG pH POC ABG pCO2 27.0 L POC ABG pO2 69 L Sodium Potassium Chloride Carbon Dioxide BUN Creatinine Glucose POC Glucose 121 H 128 H Lactic Acid Calcium Phosphorus Magnesium Direct Bilirubin ALT Alkaline Phosphatase Troponin T C-Reactive Protein Total Protein Albumin Triglycerides Cholesterol LDL Cholesterol Direct HDL Cholesterol Urine WBC (Auto) Urine Creatinine Urine Total Protein Vancomycin Trough Rheumatoid Factor Complement C4 Miscellaneous Test Crossmatch 09/26/16 09/26/16 09/27/16 18:31 23:40 08:20 WBC RBC Hgb Hct MCV MCH MCHC RDW Plt Count Lymph % (Auto) [place] % (Auto) Lymph # [place] # Seg Neutrophils % Seg Neuts % (Manual) Lymphocytes % (Manual) Monocytes % (Manual) Eosinophils % (Manual) Basophils % (Manual) Nucleated RBC % Seg Neutrophils # Seg Neutrophils # Man Lymphocytes # (Manual) Monocytes # (Manual) Eosinophils # (Manual) PT INR Fibrinogen dRVVT Confirm Interp Factor V Activity POC ABG pH POC ABG pCO2 POC ABG pO2 Sodium Potassium Chloride Carbon Dioxide BUN Creatinine Glucose POC Glucose 120 H 133 H Lactic Acid 4.10 H* Calcium Phosphorus Magnesium Direct Bilirubin ALT Alkaline Phosphatase Troponin T C-Reactive Protein Total Protein Albumin Triglycerides Cholesterol LDL Cholesterol Direct HDL Cholesterol Urine WBC (Auto) Urine Creatinine Urine Total Protein Vancomycin Trough Rheumatoid Factor Complement C4 Miscellaneous Test Crossmatch 09/27/16 09/27/16 09/27/16 11:23 15:00 18:15 WBC RBC Hgb Hct MCV MCH MCHC RDW Plt Count Lymph % (Auto) [place] % (Auto) Lymph # [place] # Seg Neutrophils % Seg Neuts % (Manual) Lymphocytes % (Manual) Monocytes % (Manual) Eosinophils % (Manual) Basophils % (Manual) Nucleated RBC % Seg Neutrophils # Seg Neutrophils # Man Lymphocytes # (Manual) Monocytes # (Manual) Eosinophils # (Manual) PT INR Fibrinogen dRVVT Confirm Interp Factor V Activity POC ABG pH 7.459 H POC ABG pCO2 27.1 L POC ABG pO2 140 H Sodium Potassium Chloride Carbon Dioxide BUN Creatinine Glucose POC Glucose 114 H 127 H Lactic Acid Calcium Phosphorus Magnesium Direct Bilirubin ALT Alkaline Phosphatase Troponin T C-Reactive Protein Total Protein Albumin Triglycerides Cholesterol LDL Cholesterol Direct HDL Cholesterol Urine WBC (Auto) Urine Creatinine Urine Total Protein Vancomycin Trough Rheumatoid Factor Complement C4 Miscellaneous Test Crossmatch 09/27/16 09/27/16 09/28/16 Unknown Unknown 03:45 WBC RBC 2.49 L Hgb 6.8 L Hct 20.7 L MCV MCH 27 L MCHC RDW 22.1 H Plt Count Lymph % (Auto) [place] % (Auto) Lymph # [place] # Seg Neutrophils % Seg Neuts % (Manual) 32.0 L Lymphocytes % (Manual) 12.0 L Monocytes % (Manual) 11.0 H Eosinophils % (Manual) 10.0 H Basophils % (Manual) Nucleated RBC % Seg Neutrophils # Seg Neutrophils # Man Lymphocytes # (Manual) 1.0 L Monocytes # (Manual) 0.9 H Eosinophils # (Manual) 0.8 H PT INR Fibrinogen dRVVT Confirm Interp Factor V Activity POC ABG pH POC ABG pCO2 POC ABG pO2 Sodium 135 L 135 L Potassium 3.5 L Chloride 93.6 L 94.4 L Carbon Dioxide 17 L 21 L BUN 45 H 28 H Creatinine 3.3 H 2.5 H Glucose 106 H POC Glucose Lactic Acid Calcium 7.3 L 7.1 L Phosphorus Magnesium Direct Bilirubin ALT Alkaline Phosphatase Troponin T C-Reactive Protein Total Protein Albumin Triglycerides Cholesterol LDL Cholesterol Direct HDL Cholesterol Urine WBC (Auto) Urine Creatinine Urine Total Protein Vancomycin Trough Rheumatoid Factor Complement C4 Miscellaneous Test Crossmatch 09/28/16 09/28/16 09/28/16 03:45 07:25 11:58 WBC 13.3 H RBC 3.01 L Hgb 8.4 L Hct 25.0 L MCV MCH MCHC RDW 20.5 H Plt Count 128 L Lymph % (Auto) [place] % (Auto) Lymph # [place] # Seg Neutrophils % Seg Neuts % (Manual) Lymphocytes % (Manual) 7.0 L Monocytes % (Manual) Eosinophils % (Manual) 6.0 H Basophils % (Manual) Nucleated RBC % Seg Neutrophils # Seg Neutrophils # Man Lymphocytes # (Manual) 0.9 L Monocytes # (Manual) Eosinophils # (Manual) 0.8 H PT INR Fibrinogen dRVVT Confirm Interp Factor V Activity POC ABG pH POC ABG pCO2 POC ABG pO2 Sodium Potassium Chloride Carbon Dioxide BUN Creatinine Glucose POC Glucose 121 H Lactic Acid 4.50 H* Calcium Phosphorus Magnesium Direct Bilirubin ALT Alkaline Phosphatase Troponin T C-Reactive Protein Total Protein Albumin Triglycerides Cholesterol LDL Cholesterol Direct HDL Cholesterol Urine WBC (Auto) Urine Creatinine Urine Total Protein Vancomycin Trough Rheumatoid Factor Complement C4 Miscellaneous Test Crossmatch 09/29/16 09/29/16 09/29/16 06:45 06:45 06:45 WBC 14.9 H RBC 2.74 L Hgb 7.6 L Hct 23.2 L MCV MCH MCHC RDW 20.5 H Plt Count 81 L Lymph % (Auto) [place] % (Auto) Lymph # [place] # Seg Neutrophils % Seg Neuts % (Manual) 81.0 H Lymphocytes % (Manual) 4.0 L Monocytes % (Manual) Eosinophils % (Manual) Basophils % (Manual) Nucleated RBC % Seg Neutrophils # Seg Neutrophils # Man 12.1 H Lymphocytes # (Manual) 0.6 L Monocytes # (Manual) Eosinophils # (Manual) PT INR Fibrinogen dRVVT Confirm Interp Factor V Activity POC ABG pH POC ABG pCO2 POC ABG pO2 Sodium 133 L Potassium 3.4 L Chloride 92.5 L Carbon Dioxide 21 L BUN 33 H Creatinine 3.0 H Glucose POC Glucose Lactic Acid Calcium 6.6 L Phosphorus Magnesium 1.40 L Direct Bilirubin 0.9 H ALT Alkaline Phosphatase Troponin T C-Reactive Protein Total Protein 4.3 L Albumin 1.3 L Triglycerides Cholesterol LDL Cholesterol Direct HDL Cholesterol Urine WBC (Auto) Urine Creatinine Urine Total Protein Vancomycin Trough Rheumatoid Factor Complement C4 Miscellaneous Test Crossmatch 09/29/16 09/29/16 09/30/16 17:52 20:12 00:07 WBC RBC Hgb Hct MCV MCH MCHC RDW Plt Count Lymph % (Auto) [place] % (Auto) Lymph # [place] # Seg Neutrophils % Seg Neuts % (Manual) Lymphocytes % (Manual) Monocytes % (Manual) Eosinophils % (Manual) Basophils % (Manual) Nucleated RBC % Seg Neutrophils # Seg Neutrophils # Man Lymphocytes # (Manual) Monocytes # (Manual) Eosinophils # (Manual) PT INR Fibrinogen dRVVT Confirm Interp Factor V Activity POC ABG pH POC ABG pCO2 POC ABG pO2 Sodium Potassium Chloride Carbon Dioxide BUN Creatinine Glucose POC Glucose 50 L 51 L Lactic Acid Calcium Phosphorus Magnesium Direct Bilirubin ALT Alkaline Phosphatase Troponin T 0.204 H* C-Reactive Protein Total Protein Albumin Triglycerides Cholesterol 31 L LDL Cholesterol Direct 4 L HDL Cholesterol 3 L Urine WBC (Auto) Urine Creatinine Urine Total Protein Vancomycin Trough Rheumatoid Factor Complement C4 Miscellaneous Test Crossmatch 09/30/16 09/30/16 09/30/16 01:30 05:15 06:10 WBC RBC Hgb Hct MCV MCH MCHC RDW Plt Count Lymph % (Auto) [place] % (Auto) Lymph # [place] # Seg Neutrophils % Seg Neuts % (Manual) Lymphocytes % (Manual) Monocytes % (Manual) Eosinophils % (Manual) Basophils % (Manual) Nucleated RBC % Seg Neutrophils # Seg Neutrophils # Man Lymphocytes # (Manual) Monocytes # (Manual) Eosinophils # (Manual) PT INR Fibrinogen dRVVT Confirm Interp Factor V Activity POC ABG pH POC ABG pCO2 POC ABG pO2 Sodium 133 L Potassium 3.2 L Chloride 93.2 L Carbon Dioxide 19 L BUN 36 H Creatinine 3.2 H Glucose 104 H POC Glucose 167 H 146 H Lactic Acid Calcium 6.4 L Phosphorus Magnesium 1.60 L Direct Bilirubin ALT Alkaline Phosphatase Troponin T C-Reactive Protein Total Protein Albumin Triglycerides Cholesterol LDL Cholesterol Direct HDL Cholesterol Urine WBC (Auto) Urine Creatinine Urine Total Protein Vancomycin Trough Rheumatoid Factor Complement C4 Miscellaneous Test Crossmatch 09/30/16 09/30/16 09/30/16 11:26 13:39 18:38 WBC RBC Hgb Hct MCV MCH MCHC RDW Plt Count Lymph % (Auto) [place] % (Auto) Lymph # [place] # Seg Neutrophils % Seg Neuts % (Manual) Lymphocytes % (Manual) Monocytes % (Manual) Eosinophils % (Manual) Basophils % (Manual) Nucleated RBC % Seg Neutrophils # Seg Neutrophils # Man Lymphocytes # (Manual) Monocytes # (Manual) Eosinophils # (Manual) PT INR Fibrinogen dRVVT Confirm Interp Factor V Activity POC ABG pH 7.479 H POC ABG pCO2 29.8 L POC ABG pO2 117 H Sodium Potassium Chloride Carbon Dioxide BUN Creatinine Glucose POC Glucose 140 H 122 H Lactic Acid Calcium Phosphorus Magnesium Direct Bilirubin ALT Alkaline Phosphatase Troponin T C-Reactive Protein Total Protein Albumin Triglycerides Cholesterol LDL Cholesterol Direct HDL Cholesterol Urine WBC (Auto) Urine Creatinine Urine Total Protein Vancomycin Trough Rheumatoid Factor Complement C4 Miscellaneous Test Crossmatch 10/01/16 10/01/16 10/01/16 06:00 06:00 12:37 WBC 12.6 H RBC 2.75 L Hgb 7.3 L Hct 23.3 L MCV MCH 27 L MCHC RDW 20.6 H Plt Count 72 L Lymph % (Auto) [place] % (Auto) Lymph # [place] # Seg Neutrophils % Seg Neuts % (Manual) 31.0 L Lymphocytes % (Manual) 8.0 L Monocytes % (Manual) Eosinophils % (Manual) Basophils % (Manual) Nucleated RBC % 3.0 H Seg Neutrophils # Seg Neutrophils # Man Lymphocytes # (Manual) 1.0 L Monocytes # (Manual) Eosinophils # (Manual) PT INR Fibrinogen dRVVT Confirm Interp Factor V Activity POC ABG pH POC ABG pCO2 POC ABG pO2 Sodium 127 L Potassium Chloride 86.8 L Carbon Dioxide 20 L BUN 42 H Creatinine 3.5 H Glucose POC Glucose 65 L Lactic Acid Calcium 7.0 L Phosphorus Magnesium Direct Bilirubin ALT Alkaline Phosphatase Troponin T C-Reactive Protein Total Protein Albumin Triglycerides Cholesterol LDL Cholesterol Direct HDL Cholesterol Urine WBC (Auto) Urine Creatinine Urine Total Protein Vancomycin Trough Rheumatoid Factor Complement C4 Miscellaneous Test Crossmatch 10/01/16 10/01/16 10/02/16 17:39 23:32 00:59 WBC RBC Hgb Hct MCV MCH MCHC RDW Plt Count Lymph % (Auto) [place] % (Auto) Lymph # [place] # Seg Neutrophils % Seg Neuts % (Manual) Lymphocytes % (Manual) Monocytes % (Manual) Eosinophils % (Manual) Basophils % (Manual) Nucleated RBC % Seg Neutrophils # Seg Neutrophils # Man Lymphocytes # (Manual) Monocytes # (Manual) Eosinophils # (Manual) PT INR Fibrinogen dRVVT Confirm Interp Factor V Activity POC ABG pH POC ABG pCO2 POC ABG pO2 Sodium Potassium Chloride Carbon Dioxide BUN Creatinine Glucose POC Glucose 107 H 52 L 145 H Lactic Acid Calcium Phosphorus Magnesium Direct Bilirubin ALT Alkaline Phosphatase Troponin T C-Reactive Protein Total Protein Albumin Triglycerides Cholesterol LDL Cholesterol Direct HDL Cholesterol Urine WBC (Auto) Urine Creatinine Urine Total Protein Vancomycin Trough Rheumatoid Factor Complement C4 Miscellaneous Test Crossmatch 10/02/16 10/02/16 10/02/16 10:30 10:50 10:50 WBC 14.7 H RBC 2.76 L Hgb 7.4 L Hct 23.6 L MCV MCH 27 L MCHC RDW 20.2 H Plt Count 79 L Lymph % (Auto) [place] % (Auto) Lymph # [place] # Seg Neutrophils % Seg Neuts % (Manual) 86.0 H Lymphocytes % (Manual) 6.0 L Monocytes % (Manual) Eosinophils % (Manual) Basophils % (Manual) Nucleated RBC % Seg Neutrophils # Seg Neutrophils # Man 12.6 H Lymphocytes # (Manual) 0.9 L Monocytes # (Manual) Eosinophils # (Manual) PT INR Fibrinogen dRVVT Confirm Interp Factor V Activity POC ABG pH 7.486 H POC ABG pCO2 30.1 L POC ABG pO2 108 H Sodium 131 L Potassium 3.4 L Chloride 89.9 L Carbon Dioxide BUN 26 H Creatinine 2.6 H Glucose POC Glucose Lactic Acid Calcium 7.0 L Phosphorus Magnesium Direct Bilirubin ALT Alkaline Phosphatase Troponin T C-Reactive Protein Total Protein Albumin Triglycerides Cholesterol LDL Cholesterol Direct HDL Cholesterol Urine WBC (Auto) Urine Creatinine Urine Total Protein Vancomycin Trough Rheumatoid Factor Complement C4 Miscellaneous Test Crossmatch 10/02/16 10/03/16 10/03/16 23:45 00:45 05:10 WBC 12.9 H RBC 2.77 L Hgb 7.6 L Hct 23.7 L MCV MCH 27 L MCHC RDW 19.7 H Plt Count 89 L Lymph % (Auto) [place] % (Auto) Lymph # [place] # Seg Neutrophils % Seg Neuts % (Manual) Lymphocytes % (Manual) 8.0 L Monocytes % (Manual) Eosinophils % (Manual) Basophils % (Manual) Nucleated RBC % Seg Neutrophils # 11.9 H Seg Neutrophils # Man Lymphocytes # (Manual) 1.0 L Monocytes # (Manual) Eosinophils # (Manual) PT INR Fibrinogen dRVVT Confirm Interp Factor V Activity POC ABG pH POC ABG pCO2 POC ABG pO2 Sodium Potassium Chloride Carbon Dioxide BUN Creatinine Glucose POC Glucose 55 L 199 H Lactic Acid Calcium Phosphorus Magnesium Direct Bilirubin ALT Alkaline Phosphatase Troponin T C-Reactive Protein Total Protein Albumin Triglycerides Cholesterol LDL Cholesterol Direct HDL Cholesterol Urine WBC (Auto) Urine Creatinine Urine Total Protein Vancomycin Trough Rheumatoid Factor Complement C4 Miscellaneous Test Crossmatch 10/03/16 10/03/16 10/03/16 05:10 12:14 13:18 WBC RBC Hgb Hct MCV MCH MCHC RDW Plt Count Lymph % (Auto) [place] % (Auto) Lymph # [place] # Seg Neutrophils % Seg Neuts % (Manual) Lymphocytes % (Manual) Monocytes % (Manual) Eosinophils % (Manual) Basophils % (Manual) Nucleated RBC % Seg Neutrophils # Seg Neutrophils # Man Lymphocytes # (Manual) Monocytes # (Manual) Eosinophils # (Manual) PT INR Fibrinogen dRVVT Confirm Interp Factor V Activity POC ABG pH POC ABG pCO2 POC ABG pO2 Sodium 129 L Potassium 3.3 L Chloride 88.8 L Carbon Dioxide 20 L BUN 29 H Creatinine 2.8 H Glucose POC Glucose 68 L 127 H Lactic Acid Calcium 7.2 L Phosphorus Magnesium Direct Bilirubin ALT Alkaline Phosphatase Troponin T C-Reactive Protein Total Protein Albumin Triglycerides Cholesterol LDL Cholesterol Direct HDL Cholesterol Urine WBC (Auto) Urine Creatinine Urine Total Protein Vancomycin Trough Rheumatoid Factor Complement C4 Miscellaneous Test Crossmatch 10/03/16 10/03/16 10/03/16 14:42 18:21 19:09 WBC RBC Hgb Hct MCV MCH MCHC RDW Plt Count Lymph % (Auto) [place] % (Auto) Lymph # [place] # Seg Neutrophils % Seg Neuts % (Manual) Lymphocytes % (Manual) Monocytes % (Manual) Eosinophils % (Manual) Basophils % (Manual) Nucleated RBC % Seg Neutrophils # Seg Neutrophils # Man Lymphocytes # (Manual) Monocytes # (Manual) Eosinophils # (Manual) PT INR Fibrinogen dRVVT Confirm Interp Factor V Activity POC ABG pH 7.499 H POC ABG pCO2 28.4 L POC ABG pO2 44 L Sodium Potassium Chloride Carbon Dioxide BUN Creatinine Glucose POC Glucose 64 L 205 H Lactic Acid Calcium Phosphorus Magnesium Direct Bilirubin ALT Alkaline Phosphatase Troponin T C-Reactive Protein Total Protein Albumin Triglycerides Cholesterol LDL Cholesterol Direct HDL Cholesterol Urine WBC (Auto) Urine Creatinine Urine Total Protein Vancomycin Trough Rheumatoid Factor Complement C4 Miscellaneous Test Crossmatch 10/03/16 10/04/16 10/04/16 23:33 04:18 06:30 WBC RBC 2.54 L Hgb 7.1 L Hct 21.7 L MCV MCH MCHC RDW 19.5 H Plt Count 76 L Lymph % (Auto) [place] % (Auto) Lymph # [place] # Seg Neutrophils % Seg Neuts % (Manual) 88.0 H Lymphocytes % (Manual) 6.0 L Monocytes % (Manual) Eosinophils % (Manual) Basophils % (Manual) Nucleated RBC % Seg Neutrophils # Seg Neutrophils # Man 8.8 H Lymphocytes # (Manual) 0.6 L Monocytes # (Manual) Eosinophils # (Manual) PT INR Fibrinogen dRVVT Confirm Interp Factor V Activity POC ABG pH 7.461 H POC ABG pCO2 33.6 L POC ABG pO2 211 H Sodium Potassium Chloride Carbon Dioxide BUN Creatinine Glucose POC Glucose 136 H Lactic Acid Calcium Phosphorus Magnesium Direct Bilirubin ALT Alkaline Phosphatase Troponin T C-Reactive Protein Total Protein Albumin Triglycerides Cholesterol LDL Cholesterol Direct HDL Cholesterol Urine WBC (Auto) Urine Creatinine Urine Total Protein Vancomycin Trough Rheumatoid Factor Complement C4 Miscellaneous Test Crossmatch 10/04/16 10/04/16 10/04/16 06:30 11:45 17:54 WBC RBC Hgb Hct MCV MCH MCHC RDW Plt Count Lymph % (Auto) [place] % (Auto) Lymph # [place] # Seg Neutrophils % Seg Neuts % (Manual) Lymphocytes % (Manual) Monocytes % (Manual) Eosinophils % (Manual) Basophils % (Manual) Nucleated RBC % Seg Neutrophils # Seg Neutrophils # Man Lymphocytes # (Manual) Monocytes # (Manual) Eosinophils # (Manual) PT INR Fibrinogen dRVVT Confirm Interp Factor V Activity POC ABG pH POC ABG pCO2 POC ABG pO2 Sodium 128 L Potassium Chloride 87.4 L Carbon Dioxide 20 L BUN 34 H Creatinine 2.9 H Glucose 127 H POC Glucose 158 H 160 H Lactic Acid Calcium 7.4 L Phosphorus Magnesium Direct Bilirubin ALT Alkaline Phosphatase Troponin T C-Reactive Protein Total Protein Albumin Triglycerides Cholesterol LDL Cholesterol Direct HDL Cholesterol Urine WBC (Auto) Urine Creatinine Urine Total Protein Vancomycin Trough Rheumatoid Factor Complement C4 Miscellaneous Test Crossmatch 10/04/16 10/05/16 10/05/16 23:25 04:30 05:00 WBC RBC 2.64 L Hgb 7.5 L Hct 22.6 L MCV MCH MCHC RDW 19.3 H Plt Count 80 L Lymph % (Auto) [place] % (Auto) Lymph # [place] # Seg Neutrophils % Seg Neuts % (Manual) Lymphocytes % (Manual) 12.0 L Monocytes % (Manual) Eosinophils % (Manual) Basophils % (Manual) Nucleated RBC % Seg Neutrophils # Seg Neutrophils # Man Lymphocytes # (Manual) Monocytes # (Manual) Eosinophils # (Manual) PT INR Fibrinogen dRVVT Confirm Interp Factor V Activity POC ABG pH 7.475 H POC ABG pCO2 33.3 L POC ABG pO2 140 H Sodium Potassium Chloride Carbon Dioxide BUN Creatinine Glucose POC Glucose 141 H Lactic Acid Calcium Phosphorus Magnesium Direct Bilirubin ALT Alkaline Phosphatase Troponin T C-Reactive Protein Total Protein Albumin Triglycerides Cholesterol LDL Cholesterol Direct HDL Cholesterol Urine WBC (Auto) Urine Creatinine Urine Total Protein Vancomycin Trough Rheumatoid Factor Complement C4 Miscellaneous Test Crossmatch 10/05/16 10/05/16 10/05/16 05:00 05:09 12:58 WBC RBC Hgb Hct MCV MCH MCHC RDW Plt Count Lymph % (Auto) [place] % (Auto) Lymph # [place] # Seg Neutrophils % Seg Neuts % (Manual) Lymphocytes % (Manual) Monocytes % (Manual) Eosinophils % (Manual) Basophils % (Manual) Nucleated RBC % Seg Neutrophils # Seg Neutrophils # Man Lymphocytes # (Manual) Monocytes # (Manual) Eosinophils # (Manual) PT INR Fibrinogen dRVVT Confirm Interp Factor V Activity POC ABG pH POC ABG pCO2 POC ABG pO2 Sodium 131 L Potassium Chloride 94.0 L Carbon Dioxide 20 L BUN 22 H Creatinine 2.0 H Glucose 123 H POC Glucose 166 H 179 H Lactic Acid Calcium 7.7 L Phosphorus 2.20 L D Magnesium Direct Bilirubin ALT Alkaline Phosphatase Troponin T C-Reactive Protein Total Protein Albumin Triglycerides Cholesterol LDL Cholesterol Direct HDL Cholesterol Urine WBC (Auto) Urine Creatinine Urine Total Protein Vancomycin Trough Rheumatoid Factor Complement C4 Miscellaneous Test Crossmatch 10/05/16 10/05/16 10/05/16 15:50 18:53 23:12 WBC RBC Hgb Hct MCV MCH MCHC RDW Plt Count Lymph % (Auto) [place] % (Auto) Lymph # [place] # Seg Neutrophils % Seg Neuts % (Manual) Lymphocytes % (Manual) Monocytes % (Manual) Eosinophils % (Manual) Basophils % (Manual) Nucleated RBC % Seg Neutrophils # Seg Neutrophils # Man Lymphocytes # (Manual) Monocytes # (Manual) Eosinophils # (Manual) PT INR Fibrinogen dRVVT Confirm Interp Factor V Activity POC ABG pH POC ABG pCO2 POC ABG pO2 Sodium Potassium Chloride Carbon Dioxide BUN Creatinine Glucose POC Glucose 150 H 164 H Lactic Acid Calcium Phosphorus Magnesium Direct Bilirubin ALT Alkaline Phosphatase Troponin T C-Reactive Protein Total Protein Albumin Triglycerides Cholesterol LDL Cholesterol Direct HDL Cholesterol Urine WBC (Auto) Urine Creatinine Urine Total Protein Vancomycin Trough Rheumatoid Factor Complement C4 Miscellaneous Test Crossmatch See Detail 10/06/16 10/06/16 10/06/16 03:50 03:50 04:53 WBC RBC 3.00 L Hgb 8.6 L Hct 25.8 L MCV MCH MCHC RDW 17.9 H Plt Count 65 L Lymph % (Auto) [place] % (Auto) Lymph # [place] # Seg Neutrophils % Seg Neuts % (Manual) 30.0 L Lymphocytes % (Manual) 5.0 L Monocytes % (Manual) Eosinophils % (Manual) Basophils % (Manual) Nucleated RBC % Seg Neutrophils # Seg Neutrophils # Man Lymphocytes # (Manual) 0.4 L Monocytes # (Manual) Eosinophils # (Manual) PT INR Fibrinogen dRVVT Confirm Interp Factor V Activity POC ABG pH 7.310 L POC ABG pCO2 49.0 H POC ABG pO2 Sodium 133 L Potassium Chloride 95.9 L Carbon Dioxide BUN 26 H Creatinine 2.0 H Glucose 116 H POC Glucose Lactic Acid Calcium 7.8 L Phosphorus Magnesium Direct Bilirubin ALT Alkaline Phosphatase Troponin T C-Reactive Protein Total Protein Albumin Triglycerides Cholesterol LDL Cholesterol Direct HDL Cholesterol Urine WBC (Auto) Urine Creatinine Urine Total Protein Vancomycin Trough Rheumatoid Factor Complement C4 Miscellaneous Test Crossmatch 10/06/16 10/06/16 10/06/16 05:23 11:52 18:34 WBC RBC Hgb Hct MCV MCH MCHC RDW Plt Count Lymph % (Auto) [place] % (Auto) Lymph # [place] # Seg Neutrophils % Seg Neuts % (Manual) Lymphocytes % (Manual) Monocytes % (Manual) Eosinophils % (Manual) Basophils % (Manual) Nucleated RBC % Seg Neutrophils # Seg Neutrophils # Man Lymphocytes # (Manual) Monocytes # (Manual) Eosinophils # (Manual) PT INR Fibrinogen dRVVT Confirm Interp Factor V Activity POC ABG pH POC ABG pCO2 POC ABG pO2 Sodium Potassium Chloride Carbon Dioxide BUN Creatinine Glucose POC Glucose 126 H 116 H 129 H Lactic Acid Calcium Phosphorus Magnesium Direct Bilirubin ALT Alkaline Phosphatase Troponin T C-Reactive Protein Total Protein Albumin Triglycerides Cholesterol LDL Cholesterol Direct HDL Cholesterol Urine WBC (Auto) Urine Creatinine Urine Total Protein Vancomycin Trough Rheumatoid Factor Complement C4 Miscellaneous Test Crossmatch 10/07/16 10/07/16 10/07/16 03:45 05:00 10:00 WBC 17.0 H RBC 2.68 L Hgb 7.3 L Hct 25.3 L MCV MCH 27 L MCHC 29 L RDW 19.6 H Plt Count 74 L Lymph % (Auto) [place] % (Auto) Lymph # [place] # Seg Neutrophils % Seg Neuts % (Manual) Lymphocytes % (Manual) 12.0 L Monocytes % (Manual) Eosinophils % (Manual) Basophils % (Manual) Nucleated RBC % 4.0 H Seg Neutrophils # Seg Neutrophils # Man 10.7 H Lymphocytes # (Manual) Monocytes # (Manual) Eosinophils # (Manual) PT INR Fibrinogen dRVVT Confirm Interp Factor V Activity POC ABG pH POC ABG pCO2 POC ABG pO2 Sodium 130 L Potassium 3.2 L Chloride 93.9 L Carbon Dioxide 20 L BUN 44 H Creatinine 2.7 H Glucose 129 H POC Glucose Lactic Acid Calcium 7.4 L Phosphorus Magnesium Direct Bilirubin ALT 6 L Alkaline Phosphatase 195 H Troponin T C-Reactive Protein Total Protein 4.9 L Albumin 1.0 L Triglycerides Cholesterol LDL Cholesterol Direct HDL Cholesterol Urine WBC (Auto) Urine Creatinine Urine Total Protein Vancomycin Trough Rheumatoid Factor Complement C4 Miscellaneous Test Flexitest 1 H Crossmatch 10/07/16 10/07/16 10/07/16 10:00 11:24 18:10 WBC RBC Hgb Hct MCV MCH MCHC RDW Plt Count Lymph % (Auto) [place] % (Auto) Lymph # [place] # Seg Neutrophils % Seg Neuts % (Manual) Lymphocytes % (Manual) Monocytes % (Manual) Eosinophils % (Manual) Basophils % (Manual) Nucleated RBC % Seg Neutrophils # Seg Neutrophils # Man Lymphocytes # (Manual) Monocytes # (Manual) Eosinophils # (Manual) PT INR Fibrinogen dRVVT Confirm Interp Factor V Activity POC ABG pH POC ABG pCO2 POC ABG pO2 Sodium Potassium Chloride Carbon Dioxide BUN Creatinine Glucose POC Glucose 116 H 130 H Lactic Acid Calcium Phosphorus Magnesium Direct Bilirubin ALT Alkaline Phosphatase Troponin T C-Reactive Protein 19.40 H Total Protein Albumin Triglycerides Cholesterol LDL Cholesterol Direct HDL Cholesterol Urine WBC (Auto) Urine Creatinine Urine Total Protein Vancomycin Trough Rheumatoid Factor Complement C4 Miscellaneous Test Crossmatch 10/07/16 10/08/16 10/08/16 18:30 00:00 04:00 WBC RBC Hgb Hct MCV MCH MCHC RDW Plt Count Lymph % (Auto) [place] % (Auto) Lymph # [place] # Seg Neutrophils % Seg Neuts % (Manual) Lymphocytes % (Manual) Monocytes % (Manual) Eosinophils % (Manual) Basophils % (Manual) Nucleated RBC % Seg Neutrophils # Seg Neutrophils # Man Lymphocytes # (Manual) Monocytes # (Manual) Eosinophils # (Manual) PT INR Fibrinogen dRVVT Confirm Interp Factor V Activity POC ABG pH POC ABG pCO2 POC ABG pO2 Sodium 132 L Potassium 3.3 L Chloride 93.6 L Carbon Dioxide 17 L BUN 59 H Creatinine 2.7 H Glucose 121 H POC Glucose 122 H Lactic Acid Calcium 7.6 L Phosphorus Magnesium Direct Bilirubin ALT Alkaline Phosphatase Troponin T C-Reactive Protein Total Protein Albumin Triglycerides Cholesterol LDL Cholesterol Direct HDL Cholesterol Urine WBC (Auto) > 182.0 H Urine Creatinine Urine Total Protein Vancomycin Trough Rheumatoid Factor Complement C4 Miscellaneous Test Crossmatch 10/08/16 10/08/16 10/08/16 04:30 05:30 11:51 WBC RBC 5.15 H Hgb 14.4 H D Hct 44.5 H D MCV MCH MCHC RDW 19.5 H Plt Count 56 L Lymph % (Auto) [place] % (Auto) Lymph # [place] # Seg Neutrophils % Seg Neuts % (Manual) 24.0 L Lymphocytes % (Manual) 8.0 L Monocytes % (Manual) Eosinophils % (Manual) Basophils % (Manual) Nucleated RBC % 9.0 H Seg Neutrophils # Seg Neutrophils # Man Lymphocytes # (Manual) 0.7 L Monocytes # (Manual) Eosinophils # (Manual) PT INR Fibrinogen dRVVT Confirm Interp Factor V Activity POC ABG pH POC ABG pCO2 POC ABG pO2 Sodium Potassium Chloride Carbon Dioxide BUN Creatinine Glucose POC Glucose 125 H 150 H Lactic Acid Calcium Phosphorus Magnesium Direct Bilirubin ALT Alkaline Phosphatase Troponin T C-Reactive Protein Total Protein Albumin Triglycerides Cholesterol LDL Cholesterol Direct HDL Cholesterol Urine WBC (Auto) Urine Creatinine Urine Total Protein Vancomycin Trough Rheumatoid Factor Complement C4 Miscellaneous Test Crossmatch 10/08/16 10/08/16 10/08/16 12:49 17:07 19:30 WBC RBC Hgb 7.1 L D Hct 22.4 L D MCV MCH MCHC RDW Plt Count Lymph % (Auto) [place] % (Auto) Lymph # [place] # Seg Neutrophils % Seg Neuts % (Manual) Lymphocytes % (Manual) Monocytes % (Manual) Eosinophils % (Manual) Basophils % (Manual) Nucleated RBC % Seg Neutrophils # Seg Neutrophils # Man Lymphocytes # (Manual) Monocytes # (Manual) Eosinophils # (Manual) PT INR Fibrinogen dRVVT Confirm Interp Factor V Activity POC ABG pH POC ABG pCO2 28.2 L POC ABG pO2 111 H Sodium Potassium Chloride Carbon Dioxide BUN Creatinine Glucose POC Glucose 145 H Lactic Acid Calcium Phosphorus Magnesium Direct Bilirubin ALT Alkaline Phosphatase Troponin T C-Reactive Protein Total Protein Albumin Triglycerides Cholesterol LDL Cholesterol Direct HDL Cholesterol Urine WBC (Auto) Urine Creatinine Urine Total Protein Vancomycin Trough Rheumatoid Factor Complement C4 Miscellaneous Test Crossmatch 10/08/16 10/09/16 10/09/16 19:30 03:45 03:45 WBC 12.6 H RBC 2.36 L Hgb 6.7 L Hct 21.1 L MCV MCH MCHC RDW 19.5 H Plt Count 75 L Lymph % (Auto) [place] % (Auto) Lymph # [place] # Seg Neutrophils % Seg Neuts % (Manual) Lymphocytes % (Manual) Monocytes % (Manual) 10.0 H Eosinophils % (Manual) Basophils % (Manual) Nucleated RBC % 3.0 H Seg Neutrophils # Seg Neutrophils # Man Lymphocytes # (Manual) Monocytes # (Manual) 1.3 H Eosinophils # (Manual) PT 18.0 H INR 1.41 H Fibrinogen dRVVT Confirm Interp Factor V Activity POC ABG pH POC ABG pCO2 POC ABG pO2 Sodium 135 L Potassium Chloride Carbon Dioxide 17 L BUN 81 H Creatinine 3.2 H Glucose 109 H POC Glucose Lactic Acid Calcium 7.4 L Phosphorus 4.60 H D Magnesium Direct Bilirubin ALT Alkaline Phosphatase Troponin T C-Reactive Protein Total Protein Albumin Triglycerides Cholesterol LDL Cholesterol Direct HDL Cholesterol Urine WBC (Auto) Urine Creatinine Urine Total Protein Vancomycin Trough Rheumatoid Factor Complement C4 Miscellaneous Test Crossmatch 10/09/16 10/09/16 10/09/16 03:45 05:14 07:20 WBC RBC Hgb Hct MCV MCH MCHC RDW Plt Count Lymph % (Auto) [place] % (Auto) Lymph # [place] # Seg Neutrophils % Seg Neuts % (Manual) Lymphocytes % (Manual) Monocytes % (Manual) Eosinophils % (Manual) Basophils % (Manual) Nucleated RBC % Seg Neutrophils # Seg Neutrophils # Man Lymphocytes # (Manual) Monocytes # (Manual) Eosinophils # (Manual) PT 19.0 H INR 1.51 H Fibrinogen dRVVT Confirm Interp Factor V Activity POC ABG pH POC ABG pCO2 POC ABG pO2 Sodium Potassium Chloride Carbon Dioxide BUN Creatinine Glucose POC Glucose 151 H Lactic Acid Calcium Phosphorus Magnesium Direct Bilirubin ALT Alkaline Phosphatase Troponin T C-Reactive Protein Total Protein Albumin Triglycerides Cholesterol LDL Cholesterol Direct HDL Cholesterol Urine WBC (Auto) Urine Creatinine Urine Total Protein Vancomycin Trough Rheumatoid Factor Complement C4 Miscellaneous Test Crossmatch See Detail 10/09/16 10/09/16 10/09/16 11:46 16:20 16:43 WBC RBC Hgb 7.2 L Hct 22.2 L MCV MCH MCHC RDW Plt Count Lymph % (Auto) [place] % (Auto) Lymph # [place] # Seg Neutrophils % Seg Neuts % (Manual) Lymphocytes % (Manual) Monocytes % (Manual) Eosinophils % (Manual) Basophils % (Manual) Nucleated RBC % Seg Neutrophils # Seg Neutrophils # Man Lymphocytes # (Manual) Monocytes # (Manual) Eosinophils # (Manual) PT INR Fibrinogen dRVVT Confirm Interp Factor V Activity POC ABG pH POC ABG pCO2 POC ABG pO2 Sodium Potassium Chloride Carbon Dioxide BUN Creatinine Glucose POC Glucose 133 H 141 H Lactic Acid Calcium Phosphorus Magnesium Direct Bilirubin ALT Alkaline Phosphatase Troponin T C-Reactive Protein Total Protein Albumin Triglycerides Cholesterol LDL Cholesterol Direct HDL Cholesterol Urine WBC (Auto) Urine Creatinine Urine Total Protein Vancomycin Trough Rheumatoid Factor Complement C4 Miscellaneous Test Crossmatch 10/10/16 10/10/16 10/10/16 05:00 05:00 11:19 WBC 18.5 H RBC 2.19 L Hgb 6.4 L Hct 19.6 L* MCV MCH MCHC RDW 19.3 H Plt Count 93 L Lymph % (Auto) [place] % (Auto) Lymph # [place] # Seg Neutrophils % Seg Neuts % (Manual) Lymphocytes % (Manual) 10.0 L Monocytes % (Manual) Eosinophils % (Manual) Basophils % (Manual) Nucleated RBC % 4.0 H Seg Neutrophils # Seg Neutrophils # Man 11.3 H Lymphocytes # (Manual) Monocytes # (Manual) Eosinophils # (Manual) PT INR Fibrinogen dRVVT Confirm Interp Factor V Activity POC ABG pH POC ABG pCO2 POC ABG pO2 Sodium Potassium 5.7 H D Chloride Carbon Dioxide 16 L BUN 94 H Creatinine 3.1 H Glucose 131 H POC Glucose 153 H Lactic Acid Calcium 8.2 L Phosphorus 5.10 H Magnesium 2.40 H Direct Bilirubin 0.3 H ALT < 5 L Alkaline Phosphatase 319 H Troponin T C-Reactive Protein Total Protein 5.1 L Albumin 1.0 L Triglycerides Cholesterol LDL Cholesterol Direct HDL Cholesterol Urine WBC (Auto) Urine Creatinine Urine Total Protein Vancomycin Trough Rheumatoid Factor Complement C4 Miscellaneous Test Crossmatch 10/10/16 10/10/16 10/11/16 17:50 23:30 04:15 WBC RBC Hgb Hct MCV MCH MCHC RDW Plt Count Lymph % (Auto) [place] % (Auto) Lymph # [place] # Seg Neutrophils % Seg Neuts % (Manual) Lymphocytes % (Manual) Monocytes % (Manual) Eosinophils % (Manual) Basophils % (Manual) Nucleated RBC % Seg Neutrophils # Seg Neutrophils # Man Lymphocytes # (Manual) Monocytes # (Manual) Eosinophils # (Manual) PT INR Fibrinogen dRVVT Confirm Interp Factor V Activity POC ABG pH POC ABG pCO2 POC ABG pO2 Sodium Potassium Chloride 96.4 L Carbon Dioxide 21 L BUN 57 H Creatinine 2.1 H Glucose 151 H POC Glucose 146 H 141 H Lactic Acid Calcium 8.3 L Phosphorus Magnesium Direct Bilirubin ALT Alkaline Phosphatase Troponin T C-Reactive Protein Total Protein Albumin Triglycerides Cholesterol LDL Cholesterol Direct HDL Cholesterol Urine WBC (Auto) Urine Creatinine Urine Total Protein Vancomycin Trough Rheumatoid Factor Complement C4 Miscellaneous Test Crossmatch 10/11/16 10/11/16 10/11/16 04:15 04:15 05:30 WBC 28.3 H RBC 3.12 L Hgb 9.3 L Hct 28.7 L D MCV MCH MCHC RDW 17.7 H Plt Count 128 L Lymph % (Auto) [place] % (Auto) Lymph # [place] # Seg Neutrophils % Seg Neuts % (Manual) Lymphocytes % (Manual) Monocytes % (Manual) Eosinophils % (Manual) Basophils % (Manual) Nucleated RBC % Seg Neutrophils # Seg Neutrophils # Man Lymphocytes # (Manual) Monocytes # (Manual) Eosinophils # (Manual) PT INR Fibrinogen dRVVT Confirm Interp Factor V Activity POC ABG pH POC ABG pCO2 POC ABG pO2 Sodium Potassium Chloride Carbon Dioxide BUN Creatinine Glucose POC Glucose 167 H Lactic Acid Calcium Phosphorus Magnesium Direct Bilirubin ALT Alkaline Phosphatase Troponin T C-Reactive Protein 15.80 H Total Protein Albumin Triglycerides Cholesterol LDL Cholesterol Direct HDL Cholesterol Urine WBC (Auto) Urine Creatinine Urine Total Protein Vancomycin Trough Rheumatoid Factor Complement C4 Miscellaneous Test Crossmatch 10/11/16 10/11/16 10/11/16 11:40 15:49 23:57 WBC RBC Hgb Hct MCV MCH MCHC RDW Plt Count Lymph % (Auto) [place] % (Auto) Lymph # [place] # Seg Neutrophils % Seg Neuts % (Manual) Lymphocytes % (Manual) Monocytes % (Manual) Eosinophils % (Manual) Basophils % (Manual) Nucleated RBC % Seg Neutrophils # Seg Neutrophils # Man Lymphocytes # (Manual) Monocytes # (Manual) Eosinophils # (Manual) PT INR Fibrinogen dRVVT Confirm Interp Factor V Activity POC ABG pH POC ABG pCO2 POC ABG pO2 Sodium Potassium Chloride Carbon Dioxide BUN Creatinine Glucose POC Glucose 139 H 168 H 161 H Lactic Acid Calcium Phosphorus Magnesium Direct Bilirubin ALT Alkaline Phosphatase Troponin T C-Reactive Protein Total Protein Albumin Triglycerides Cholesterol LDL Cholesterol Direct HDL Cholesterol Urine WBC (Auto) Urine Creatinine Urine Total Protein Vancomycin Trough Rheumatoid Factor Complement C4 Miscellaneous Test Crossmatch 10/12/16 10/12/16 10/12/16 04:40 04:40 05:44 WBC 22.5 H RBC 2.88 L Hgb 8.8 L Hct 26.8 L MCV MCH MCHC RDW 17.8 H Plt Count Lymph % (Auto) [place] % (Auto) Lymph # [place] # Seg Neutrophils % Seg Neuts % (Manual) Lymphocytes % (Manual) Monocytes % (Manual) Eosinophils % (Manual) Basophils % (Manual) Nucleated RBC % Seg Neutrophils # Seg Neutrophils # Man Lymphocytes # (Manual) Monocytes # (Manual) Eosinophils # (Manual) PT INR Fibrinogen dRVVT Confirm Interp Factor V Activity POC ABG pH POC ABG pCO2 POC ABG pO2 Sodium 134 L Potassium Chloride 93.0 L Carbon Dioxide BUN 74 H Creatinine 2.5 H Glucose 137 H POC Glucose 158 H Lactic Acid Calcium 8.2 L Phosphorus Magnesium Direct Bilirubin ALT Alkaline Phosphatase Troponin T C-Reactive Protein Total Protein Albumin Triglycerides Cholesterol LDL Cholesterol Direct HDL Cholesterol Urine WBC (Auto) Urine Creatinine Urine Total Protein Vancomycin Trough Rheumatoid Factor Complement C4 Miscellaneous Test Crossmatch 10/12/16 10/12/16 10/12/16 12:27 18:18 23:46 WBC RBC Hgb Hct MCV MCH MCHC RDW Plt Count Lymph % (Auto) Wilkinson % (Auto) Lymph # Wilkinson # Seg Neutrophils % Seg Neuts % (Manual) Lymphocytes % (Manual) Monocytes % (Manual) Eosinophils % (Manual) Basophils % (Manual) Nucleated RBC % Seg Neutrophils # Seg Neutrophils # Man Lymphocytes # (Manual) Monocytes # (Manual) Eosinophils # (Manual) PT INR Fibrinogen dRVVT Confirm Interp Factor V Activity POC ABG pH POC ABG pCO2 POC ABG pO2 Sodium Potassium Chloride Carbon Dioxide BUN Creatinine Glucose POC Glucose 153 H 140 H 150 H Lactic Acid Calcium Phosphorus Magnesium Direct Bilirubin ALT Alkaline Phosphatase Troponin T C-Reactive Protein Total Protein Albumin Triglycerides Cholesterol LDL Cholesterol Direct HDL Cholesterol Urine WBC (Auto) Urine Creatinine Urine Total Protein Vancomycin Trough Rheumatoid Factor Complement C4 Miscellaneous Test Crossmatch 10/13/16 10/13/16 10/13/16 06:22 09:20 12:29 WBC RBC Hgb Hct MCV MCH MCHC RDW Plt Count Lymph % (Auto) Wilkinson % (Auto) Lymph # Wilkinson # Seg Neutrophils % Seg Neuts % (Manual) Lymphocytes % (Manual) Monocytes % (Manual) Eosinophils % (Manual) Basophils % (Manual) Nucleated RBC % Seg Neutrophils # Seg Neutrophils # Man Lymphocytes # (Manual) Monocytes # (Manual) Eosinophils # (Manual) PT INR Fibrinogen dRVVT Confirm Interp Factor V Activity POC ABG pH POC ABG pCO2 POC ABG pO2 Sodium Potassium Chloride Carbon Dioxide BUN Creatinine Glucose POC Glucose 165 H 193 H Lactic Acid Calcium Phosphorus Magnesium Direct Bilirubin ALT Alkaline Phosphatase Troponin T C-Reactive Protein Total Protein Albumin Triglycerides Cholesterol LDL Cholesterol Direct HDL Cholesterol Urine WBC (Auto) Urine Creatinine Urine Total Protein Vancomycin Trough Rheumatoid Factor Complement C4 Miscellaneous Test Flexitest 1 H Crossmatch 10/13/16 10/13/16 10/13/16 18:09 Unknown Unknown WBC 23.4 H RBC 2.83 L Hgb 8.7 L Hct 26.1 L MCV MCH MCHC RDW 18.1 H Plt Count Lymph % (Auto) Wilkinson % (Auto) Lymph # Wilkinson # Seg Neutrophils % Seg Neuts % (Manual) Lymphocytes % (Manual) Monocytes % (Manual) Eosinophils % (Manual) Basophils % (Manual) Nucleated RBC % Seg Neutrophils # Seg Neutrophils # Man Lymphocytes # (Manual) Monocytes # (Manual) Eosinophils # (Manual) PT INR Fibrinogen dRVVT Confirm Interp Factor V Activity POC ABG pH POC ABG pCO2 POC ABG pO2 Sodium Potassium Chloride 95.8 L Carbon Dioxide BUN 82 H Creatinine 2.6 H Glucose 152 H POC Glucose 166 H Lactic Acid Calcium Phosphorus Magnesium Direct Bilirubin ALT Alkaline Phosphatase Troponin T C-Reactive Protein Total Protein Albumin Triglycerides Cholesterol LDL Cholesterol Direct HDL Cholesterol Urine WBC (Auto) Urine Creatinine Urine Total Protein Vancomycin Trough Rheumatoid Factor Complement C4 Miscellaneous Test Crossmatch 10/14/16 10/14/16 10/14/16 05:38 06:35 08:10 WBC 20.7 H RBC 2.81 L Hgb 8.4 L Hct 27.2 L MCV MCH MCHC RDW 19.4 H Plt Count Lymph % (Auto) Wilkinson % (Auto) Lymph # Wilkinson # Seg Neutrophils % Seg Neuts % (Manual) Lymphocytes % (Manual) Monocytes % (Manual) Eosinophils % (Manual) Basophils % (Manual) Nucleated RBC % Seg Neutrophils # Seg Neutrophils # Man Lymphocytes # (Manual) Monocytes # (Manual) Eosinophils # (Manual) PT INR Fibrinogen dRVVT Confirm Interp Factor V Activity POC ABG pH POC ABG pCO2 POC ABG pO2 Sodium Potassium Chloride Carbon Dioxide BUN 58 H Creatinine 1.9 H Glucose 169 H POC Glucose 195 H Lactic Acid Calcium Phosphorus Magnesium Direct Bilirubin ALT Alkaline Phosphatase Troponin T C-Reactive Protein Total Protein Albumin Triglycerides Cholesterol LDL Cholesterol Direct HDL Cholesterol Urine WBC (Auto) Urine Creatinine Urine Total Protein Vancomycin Trough Rheumatoid Factor Complement C4 Miscellaneous Test Crossmatch 10/14/16 10/14/16 10/14/16 11:44 17:13 23:28 WBC RBC Hgb Hct MCV MCH MCHC RDW Plt Count Lymph % (Auto) Wilkinson % (Auto) Lymph # Wilkinson # Seg Neutrophils % Seg Neuts % (Manual) Lymphocytes % (Manual) Monocytes % (Manual) Eosinophils % (Manual) Basophils % (Manual) Nucleated RBC % Seg Neutrophils # Seg Neutrophils # Man Lymphocytes # (Manual) Monocytes # (Manual) Eosinophils # (Manual) PT INR Fibrinogen dRVVT Confirm Interp Factor V Activity POC ABG pH POC ABG pCO2 POC ABG pO2 Sodium Potassium Chloride Carbon Dioxide BUN Creatinine Glucose POC Glucose 174 H 121 H 151 H Lactic Acid Calcium Phosphorus Magnesium Direct Bilirubin ALT Alkaline Phosphatase Troponin T C-Reactive Protein Total Protein Albumin Triglycerides Cholesterol LDL Cholesterol Direct HDL Cholesterol Urine WBC (Auto) Urine Creatinine Urine Total Protein Vancomycin Trough Rheumatoid Factor Complement C4 Miscellaneous Test Crossmatch 10/15/16 10/15/16 10/15/16 05:06 12:26 17:48 WBC RBC Hgb Hct MCV MCH MCHC RDW Plt Count Lymph % (Auto) Wilkinson % (Auto) Lymph # Wilkinson # Seg Neutrophils % Seg Neuts % (Manual) Lymphocytes % (Manual) Monocytes % (Manual) Eosinophils % (Manual) Basophils % (Manual) Nucleated RBC % Seg Neutrophils # Seg Neutrophils # Man Lymphocytes # (Manual) Monocytes # (Manual) Eosinophils # (Manual) PT INR Fibrinogen dRVVT Confirm Interp Factor V Activity POC ABG pH POC ABG pCO2 POC ABG pO2 Sodium Potassium Chloride Carbon Dioxide BUN Creatinine Glucose POC Glucose 151 H 149 H 153 H Lactic Acid Calcium Phosphorus Magnesium Direct Bilirubin ALT Alkaline Phosphatase Troponin T C-Reactive Protein Total Protein Albumin Triglycerides Cholesterol LDL Cholesterol Direct HDL Cholesterol Urine WBC (Auto) Urine Creatinine Urine Total Protein Vancomycin Trough Rheumatoid Factor Complement C4 Miscellaneous Test Crossmatch 10/15/16 10/15/16 10/16/16 Unknown Unknown 00:02 WBC 23.4 H RBC 2.78 L Hgb 8.5 L Hct 25.7 L MCV MCH MCHC RDW 18.7 H Plt Count Lymph % (Auto) Wilkinson % (Auto) Lymph # Wilkinson # Seg Neutrophils % Seg Neuts % (Manual) Lymphocytes % (Manual) Monocytes % (Manual) Eosinophils % (Manual) Basophils % (Manual) Nucleated RBC % Seg Neutrophils # Seg Neutrophils # Man Lymphocytes # (Manual) Monocytes # (Manual) Eosinophils # (Manual) PT INR Fibrinogen dRVVT Confirm Interp Factor V Activity POC ABG pH POC ABG pCO2 POC ABG pO2 Sodium Potassium Chloride Carbon Dioxide BUN 73 H Creatinine 2.3 H Glucose 120 H POC Glucose 137 H Lactic Acid Calcium Phosphorus Magnesium Direct Bilirubin ALT Alkaline Phosphatase Troponin T C-Reactive Protein Total Protein Albumin Triglycerides Cholesterol LDL Cholesterol Direct HDL Cholesterol Urine WBC (Auto) Urine Creatinine Urine Total Protein Vancomycin Trough Rheumatoid Factor Complement C4 Miscellaneous Test Crossmatch 10/16/16 10/16/16 10/16/16 05:44 06:25 06:25 WBC 22.5 H RBC 2.76 L Hgb 8.3 L Hct 25.2 L MCV MCH MCHC RDW 18.3 H Plt Count Lymph % (Auto) Wilkinson % (Auto) Lymph # Wilkinson # Seg Neutrophils % Seg Neuts % (Manual) Lymphocytes % (Manual) Monocytes % (Manual) Eosinophils % (Manual) Basophils % (Manual) Nucleated RBC % Seg Neutrophils # Seg Neutrophils # Man Lymphocytes # (Manual) Monocytes # (Manual) Eosinophils # (Manual) PT INR Fibrinogen dRVVT Confirm Interp Factor V Activity POC ABG pH POC ABG pCO2 POC ABG pO2 Sodium Potassium Chloride Carbon Dioxide BUN 92 H Creatinine 3.0 H Glucose 138 H POC Glucose 110 H Lactic Acid Calcium Phosphorus Magnesium Direct Bilirubin ALT Alkaline Phosphatase Troponin T C-Reactive Protein Total Protein Albumin Triglycerides Cholesterol LDL Cholesterol Direct HDL Cholesterol Urine WBC (Auto) Urine Creatinine Urine Total Protein Vancomycin Trough Rheumatoid Factor Complement C4 Miscellaneous Test Crossmatch 10/16/16 10/16/16 10/16/16 11:27 11:48 17:36 WBC RBC Hgb Hct MCV MCH MCHC RDW Plt Count Lymph % (Auto) Wilkinson % (Auto) Lymph # Wilkinson # Seg Neutrophils % Seg Neuts % (Manual) Lymphocytes % (Manual) Monocytes % (Manual) Eosinophils % (Manual) Basophils % (Manual) Nucleated RBC % Seg Neutrophils # Seg Neutrophils # Man Lymphocytes # (Manual) Monocytes # (Manual) Eosinophils # (Manual) PT INR Fibrinogen dRVVT Confirm Interp Factor V Activity POC ABG pH 7.582 H POC ABG pCO2 27.4 L POC ABG pO2 110 H Sodium Potassium Chloride Carbon Dioxide BUN Creatinine Glucose POC Glucose 121 H 133 H Lactic Acid Calcium Phosphorus Magnesium Direct Bilirubin ALT Alkaline Phosphatase Troponin T C-Reactive Protein Total Protein Albumin Triglycerides Cholesterol LDL Cholesterol Direct HDL Cholesterol Urine WBC (Auto) Urine Creatinine Urine Total Protein Vancomycin Trough Rheumatoid Factor Complement C4 Miscellaneous Test Crossmatch 10/16/16 10/17/16 10/17/16 20:48 04:24 04:24 WBC 21.4 H RBC 2.72 L Hgb 8.0 L Hct 25.2 L MCV MCH MCHC RDW 18.0 H Plt Count Lymph % (Auto) Wilkinson % (Auto) Lymph # Wilkinson # Seg Neutrophils % Seg Neuts % (Manual) Lymphocytes % (Manual) Monocytes % (Manual) Eosinophils % (Manual) Basophils % (Manual) Nucleated RBC % Seg Neutrophils # Seg Neutrophils # Man Lymphocytes # (Manual) Monocytes # (Manual) Eosinophils # (Manual) PT INR Fibrinogen dRVVT Confirm Interp Factor V Activity POC ABG pH 7.561 H POC ABG pCO2 24.4 L POC ABG pO2 77 L Sodium 148 H Potassium Chloride Carbon Dioxide BUN 104 H Creatinine 3.0 H Glucose 149 H POC Glucose Lactic Acid Calcium Phosphorus Magnesium Direct Bilirubin ALT Alkaline Phosphatase 138 H Troponin T C-Reactive Protein Total Protein 6.2 L Albumin 1.5 L Triglycerides Cholesterol LDL Cholesterol Direct HDL Cholesterol Urine WBC (Auto) Urine Creatinine Urine Total Protein Vancomycin Trough Rheumatoid Factor Complement C4 Miscellaneous Test Crossmatch 10/17/16 10/17/16 10/17/16 06:02 12:17 17:14 WBC RBC Hgb Hct MCV MCH MCHC RDW Plt Count Lymph % (Auto) Wilkinson % (Auto) Lymph # Wilkinson # Seg Neutrophils % Seg Neuts % (Manual) Lymphocytes % (Manual) Monocytes % (Manual) Eosinophils % (Manual) Basophils % (Manual) Nucleated RBC % Seg Neutrophils # Seg Neutrophils # Man Lymphocytes # (Manual) Monocytes # (Manual) Eosinophils # (Manual) PT INR Fibrinogen dRVVT Confirm Interp Factor V Activity POC ABG pH POC ABG pCO2 POC ABG pO2 Sodium Potassium Chloride Carbon Dioxide BUN Creatinine Glucose POC Glucose 170 H 167 H 126 H Lactic Acid Calcium Phosphorus Magnesium Direct Bilirubin ALT Alkaline Phosphatase Troponin T C-Reactive Protein Total Protein Albumin Triglycerides Cholesterol LDL Cholesterol Direct HDL Cholesterol Urine WBC (Auto) Urine Creatinine Urine Total Protein Vancomycin Trough Rheumatoid Factor Complement C4 Miscellaneous Test Crossmatch 10/17/16 10/18/16 10/18/16 23:17 04:00 04:00 WBC 20.7 H RBC 2.47 L Hgb 7.4 L Hct 22.9 L MCV MCH MCHC RDW 17.5 H Plt Count Lymph % (Auto) Wilkinson % (Auto) Lymph # Wilkinson # Seg Neutrophils % Seg Neuts % (Manual) Lymphocytes % (Manual) Monocytes % (Manual) Eosinophils % (Manual) Basophils % (Manual) Nucleated RBC % Seg Neutrophils # Seg Neutrophils # Man Lymphocytes # (Manual) Monocytes # (Manual) Eosinophils # (Manual) PT INR Fibrinogen dRVVT Confirm Interp Factor V Activity POC ABG pH POC ABG pCO2 POC ABG pO2 Sodium 149 H Potassium Chloride 107.9 H Carbon Dioxide 20 L BUN 117 H Creatinine 3.2 H Glucose 119 H POC Glucose 121 H Lactic Acid Calcium Phosphorus Magnesium Direct Bilirubin ALT Alkaline Phosphatase Troponin T C-Reactive Protein Total Protein Albumin Triglycerides Cholesterol LDL Cholesterol Direct HDL Cholesterol Urine WBC (Auto) Urine Creatinine Urine Total Protein Vancomycin Trough Rheumatoid Factor Complement C4 Miscellaneous Test Crossmatch 10/18/16 10/18/16 10/18/16 05:23 10:46 17:30 WBC RBC Hgb Hct MCV MCH MCHC RDW Plt Count Lymph % (Auto) Wilkinson % (Auto) Lymph # Wilkinson # Seg Neutrophils % Seg Neuts % (Manual) Lymphocytes % (Manual) Monocytes % (Manual) Eosinophils % (Manual) Basophils % (Manual) Nucleated RBC % Seg Neutrophils # Seg Neutrophils # Man Lymphocytes # (Manual) Monocytes # (Manual) Eosinophils # (Manual) PT INR Fibrinogen dRVVT Confirm Interp Factor V Activity POC ABG pH POC ABG pCO2 POC ABG pO2 Sodium Potassium Chloride Carbon Dioxide BUN Creatinine Glucose POC Glucose 119 H 155 H 124 H Lactic Acid Calcium Phosphorus Magnesium Direct Bilirubin ALT Alkaline Phosphatase Troponin T C-Reactive Protein Total Protein Albumin Triglycerides Cholesterol LDL Cholesterol Direct HDL Cholesterol Urine WBC (Auto) Urine Creatinine Urine Total Protein Vancomycin Trough Rheumatoid Factor Complement C4 Miscellaneous Test Crossmatch 10/19/16 10/19/16 10/19/16 04:00 04:00 05:25 WBC 17.4 H RBC 2.54 L Hgb 7.7 L Hct 23.6 L MCV MCH MCHC RDW 17.3 H Plt Count Lymph % (Auto) Wilkinson % (Auto) Lymph # Wilkinson # Seg Neutrophils % Seg Neuts % (Manual) Lymphocytes % (Manual) Monocytes % (Manual) Eosinophils % (Manual) Basophils % (Manual) Nucleated RBC % Seg Neutrophils # Seg Neutrophils # Man Lymphocytes # (Manual) Monocytes # (Manual) Eosinophils # (Manual) PT INR Fibrinogen dRVVT Confirm Interp Factor V Activity POC ABG pH POC ABG pCO2 POC ABG pO2 Sodium Potassium Chloride Carbon Dioxide BUN 72 H Creatinine 2.1 H Glucose 116 H POC Glucose 119 H Lactic Acid Calcium Phosphorus Magnesium Direct Bilirubin ALT Alkaline Phosphatase Troponin T C-Reactive Protein Total Protein Albumin Triglycerides Cholesterol LDL Cholesterol Direct HDL Cholesterol Urine WBC (Auto) Urine Creatinine Urine Total Protein Vancomycin Trough Rheumatoid Factor Complement C4 Miscellaneous Test Crossmatch Allied health notes reviewed: RT
--- NOTE | 2016-10-19 15:24 | Progress Note ---
Assessment and Plan Assessment: 1) Recurrent Sepsis: improving leukocytosis and resolved fever ? unclear source - likely abdominal wall abscess at surgical site -S/p multiple episodes of sepsis - initially due to presumed aspiration pneumonia, then septic episode on 09/23 from Candidemia. Then from - peritonitis from gastric perforation +/- UTI. Current septic episode from surgical site infection. -CRP 19 --> 22 -Procalcitonin=24 --> 16 (improving) -repeat CT abdomen no leak no abscess -repeat blood cx - neg -Wound cx from surgical site infection + GNR and Silvia albicans 2) Peritonitis: from gastric perforation from dislodged PEG with significant ascites -S/P exlap, repair of gastric perforation with wedge gastrectomy, abdominal washout, drain placement on 10/05. 3) Candidemia: -Blood cultures positive for Silvia albicans on 09/23 -Blood cultures positive on 09/25 -Blood cutlures negative on 09/30 -PICC line changed on 10/03 -Source ? gastric perf (PEG placed on 09/20) +/- TPN +/- central lines -TTE 10/07 no vegetations -PICC exchanged on 10/03 -fully treated with micafungin for 14 days last day 10/13 4) CA-UTI s/p gutierrez exchanged 5) Diarrhea - ? etiology ? antibiotic-induced, not better 6) Initial presumed aspiration pneumonia 7) Presumed UTI: urine cx 09/23 multiple species 8) Respiratory failure s/p trach 9) Recent CVA-left MCA CVA 10) Uncontrolled HTN 11) Acute on CKD 12) Extensive back skin peeling ? burn from gastric secretions. Doubt allergic reaction 13) Severe anemia; ? from GI bleed Plan: -continue IV vancomycin in view of surgical site infection -continue meropenem to cover peritonitis (was on zosyn before) day 14 -add fluconazole -contact isolation in view of GNR growing from abd wall abscess - suspect it will be MDR -discussed with ICU staff Thank you Dr Means for your consultation, will follow up with you. Pauline Carias MD Infectious Diseases Specialist [facility] ([facility] M [phone] O [phone] Subjective Date of service: 10/19/16 Principal diagnosis: Acute resp failure on MVS; S/P Acute CVA; Acute Encephalopathy; JUANITA Interval history: Somnolent open eyes spontaneously, not following commands, on the vent via trach , still tachycardic on monitor, no pressors. Tmax 101.2 and tachycardia on monitor, +oliguric. + diarrhea Microbiology: Blood cultures: 09/13 neg 8 Silvia albicans 09/25 Silvia 09/29 neg 10/07 NGTD Urine cultures: 09/10 neg 09/13 neg 8/ 10-100K mixed species 10/07 pending Respiratory cultures: 09/07 neg 09/13 neg 09/23 neg Wound cultures: 10/17 abd wall wound purulence + GNR Stool cultures: Current Antimicrobials: Meropenem 10/10 Vanco 10/17 Previous Antimicrobials: Zosyn 10/07 Vancomycin PO 10/01 Metronidazole 09/25 Micafungin 09/27-10/13 Objective - Exam Narrative Exam: General appearance: alert, non verbal, on the vent via trach no following commands Eyes: anicteric sclera, moist conjunctivae; PERRLA HENT: Atraumatic; oropharynx limited; Normal external ears. +NGT with greenish secretion Neck: +trach in place; supple, no thyromegaly or lymphadenopathy Lungs: coarse BS bilateral CV: tachycardic Abdomen: Soft, non-tender, +drain with purulent drainage, + diarrhea via rectal tube leaking. +old PEG site no drainage. Right sided Surgical site packed still draining purulence but less Extremities: +peripheral edema no extremity lymphadenopathy Skin: Julian sub mammary ulcers, extensive skin peeling on back Psych: somnolent . Neuro: somnolent non verbal on the vent. Lines: left arm PICC placed on 10/03 - Constitutional Vitals: Vital Signs Temp Pulse Resp BP Pulse Ox 98.7 F 115 H 43 H 160/84 99 10/19/16 12:00 10/19/16 13:48 10/19/16 12:30 10/19/16 13:48 10/19/16 13:48 Temperature -Last 24 Hours Temperature 98.7 F Temperature 98.6 F Temperature 98.1 F Temperature 98.9 F Temperature 99.4 F Temperature 98.6 F - Labs CBC & Chem 7: 10/19/16 04:00 10/19/16 04:00 Labs: Abnormal lab results 10/17/16 10/17/16 10/18/16 Range/Units 12:17 17:14 10:46 WBC (4.5-11.0) K/mm3 RBC (3.65-5.03) M/mm3 Hgb (10.1-14.3) gm/dl Hct (30.3-42.9) % RDW (13.2-15.2) % BUN (7-17) mg/dL Creatinine (0.7-1.2) mg/dL Glucose (65-100) mg/dL POC Glucose 167 H 126 H 155 H (70-105) 10/18/16 10/19/16 10/19/16 Range/Units 17:30 04:00 04:00 WBC 17.4 H (4.5-11.0) K/mm3 RBC 2.54 L (3.65-5.03) M/mm3 Hgb 7.7 L (10.1-14.3) gm/dl Hct 23.6 L (30.3-42.9) % RDW 17.3 H (13.2-15.2) % BUN 72 H (7-17) mg/dL Creatinine 2.1 H (0.7-1.2) mg/dL Glucose 116 H (65-100) mg/dL POC Glucose 124 H (70-105) 10/19/16 Range/Units 05:25 WBC (4.5-11.0) K/mm3 RBC (3.65-5.03) M/mm3 Hgb (10.1-14.3) gm/dl Hct (30.3-42.9) % RDW (13.2-15.2) % BUN (7-17) mg/dL Creatinine (0.7-1.2) mg/dL Glucose (65-100) mg/dL POC Glucose 119 H (70-105)
[2016-10-19] MEDS: APRESOLINE IV PRN (15:37)
--- NOTE | 2016-10-19 16:17 | Progress Note ---
Subjective Date of service: 10/19/16 Narrative: She looks more ill, responds to pain- worsening tachycardia Fio2 25 % Abdomen- drainages at the trocar sites as noted before, much less drainage now, def tenderness could not be elicted PEG site - browinsh drainage , no puruelnce Plan - continue present Rx Will get CT abdomen next week Prognosis - guarded Objective Vital Signs - 12hr 10/19/16 10/19/16 10/19/16 04:30 05:00 05:30 Temperature Pulse Rate 99 H 103 H 103 H Respiratory 31 H 32 H 31 H Rate Blood Pressure 147/81 171/99 164/100 O2 Sat by Pulse 99 99 100 Oximetry O2 Sat by Pulse Oximetry [ Assessment] 10/19/16 10/19/16 10/19/16 06:00 06:30 06:43 Temperature Pulse Rate 105 H 102 H 105 H Respiratory 26 H 29 H Rate Blood Pressure 160/96 158/88 158/88 O2 Sat by Pulse 100 100 Oximetry O2 Sat by Pulse Oximetry [ Assessment] 10/19/16 10/19/16 10/19/16 07:00 07:30 08:00 Temperature 98.6 F Pulse Rate 94 H 98 H 100 H Respiratory 30 H 31 H 29 H Rate Blood Pressure 162/85 146/86 147/87 O2 Sat by Pulse 100 100 100 Oximetry O2 Sat by Pulse Oximetry [ Assessment] 10/19/16 10/19/16 10/19/16 08:30 08:31 09:01 Temperature Pulse Rate 101 H 109 H 105 H Respiratory 32 H 28 H Rate Blood Pressure 156/86 156/86 162/87 O2 Sat by Pulse 100 99 99 Oximetry O2 Sat by Pulse Oximetry [ Assessment] 10/19/16 10/19/16 10/19/16 09:30 10:00 10:30 Temperature Pulse Rate 110 H 117 H 108 H Respiratory 30 H 32 H 31 H Rate Blood Pressure 163/95 176/107 149/87 O2 Sat by Pulse 99 99 99 Oximetry O2 Sat by Pulse Oximetry [ Assessment] 10/19/16 10/19/16 10/19/16 10:35 11:00 11:30 Temperature Pulse Rate 109 H 111 H Respiratory 32 H 29 H Rate Blood Pressure 147/89 150/95 O2 Sat by Pulse 98 99 Oximetry O2 Sat by Pulse 99 Oximetry [ Assessment] 10/19/16 10/19/1610/19/17 12:00 12:01 12:30 Temperature 98.7 F Pulse Rate 117 H 125 H Respiratory 29 H 43 H Rate Blood Pressure 174/93 191/101 O2 Sat by Pulse 100 100 100 Oximetry O2 Sat by Pulse Oximetry [ Assessment] 10/19/16 10/19/16 10/19/16 13:16 13:48 15:37 Temperature Pulse Rate 117 H 115 H 122 H Respiratory Rate Blood Pressure 167/96 160/84 182/104 O2 Sat by Pulse 99 Oximetry O2 Sat by Pulse Oximetry [ Assessment] 10/19/16 15:48 Temperature 98.6 F Pulse Rate Respiratory Rate Blood Pressure O2 Sat by Pulse Oximetry O2 Sat by Pulse Oximetry [ Assessment] - Labs 10/19/16 04:00 10/19/16 04:00 Diabetes panel 10/19/16 Range/Units 04:00 Sodium 145 (137-145) mmol/L Potassium 3.6 (3.6-5.0) mmol/L Chloride 103.5 (98-107) mmol/L Carbon Dioxide 22 (22-30) mmol/L BUN 72 H (7-17) mg/dL Creatinine 2.1 H (0.7-1.2) mg/dL Glucose 116 H (65-100) mg/dL Calcium 9.3 (8.4-10.2) mg/dL Calcium panel 10/19/16 Range/Units 04:00 Calcium 9.3 (8.4-10.2) mg/dL Phosphorus 2.60 D (2.5-4.5) mg/dL Pituitary panel 10/19/16 Range/Units 04:00 Sodium 145 (137-145) mmol/L Potassium 3.6 (3.6-5.0) mmol/L Chloride 103.5 (98-107) mmol/L Carbon Dioxide 22 (22-30) mmol/L BUN 72 H (7-17) mg/dL Creatinine 2.1 H (0.7-1.2) mg/dL Glucose 116 H (65-100) mg/dL Calcium 9.3 (8.4-10.2) mg/dL Adrenal panel 10/19/16 Range/Units 04:00 Sodium 145 (137-145) mmol/L Potassium 3.6 (3.6-5.0) mmol/L Chloride 103.5 (98-107) mmol/L Carbon Dioxide 22 (22-30) mmol/L BUN 72 H (7-17) mg/dL Creatinine 2.1 H (0.7-1.2) mg/dL Glucose 116 H (65-100) mg/dL Calcium 9.3 (8.4-10.2) mg/dL
--- NOTE | 2016-10-19 16:26 | Progress Note ---
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 * Acute hypoxic respiratory failure * Left renal artery stenosis * Metabolic acidosis - improved * Anemia * Hyponatremia - multifactorial Plan: * Patient is s/p HD yesterday. No indication of HD today. Continue dialysis prn. * Pressors prn MAP>65 * Rate control per cardiology * Transfusion of pRBC per primary team * Abx/antifungal per ID * Surgery recommendations noted * Vent management per critical care * Dose medications for renal function * Avoid potential nephrotoxins Subjective Date of service: 10/19/16 Principal diagnosis: Acute resp failure on MVS; S/P Acute CVA; Acute Encephalopathy; JUANITA Interval history: No acute events overnight. Objective - Vital Signs Vital signs: Vital Signs - 12hr 10/19/16 10/19/16 10/19/16 04:30 05:00 05:30 Temperature Pulse Rate 99 H 103 H 103 H Respiratory 31 H 32 H 31 H Rate Blood Pressure 147/81 171/99 164/100 O2 Sat by Pulse 99 99 100 Oximetry O2 Sat by Pulse Oximetry [ Assessment] 10/19/16 10/19/16 10/19/16 06:00 06:30 06:43 Temperature Pulse Rate 105 H 102 H 105 H Respiratory 26 H 29 H Rate Blood Pressure 160/96 158/88 158/88 O2 Sat by Pulse 100 100 Oximetry O2 Sat by Pulse Oximetry [ Assessment] 10/19/16 10/19/16 10/19/16 07:00 07:30 08:00 Temperature 98.6 F Pulse Rate 94 H 98 H 100 H Respiratory 30 H 31 H 29 H Rate Blood Pressure 162/85 146/86 147/87 O2 Sat by Pulse 100 100 100 Oximetry O2 Sat by Pulse Oximetry [ Assessment] 10/19/16 10/19/16 10/19/16 08:30 08:31 09:01 Temperature Pulse Rate 101 H 109 H 105 H Respiratory 32 H 28 H Rate Blood Pressure 156/86 156/86 162/87 O2 Sat by Pulse 100 99 99 Oximetry O2 Sat by Pulse Oximetry [ Assessment] 10/19/16 10/19/16 10/19/16 09:30 10:00 10:30 Temperature Pulse Rate 110 H 117 H 108 H Respiratory 30 H 32 H 31 H Rate Blood Pressure 163/95 176/107 149/87 O2 Sat by Pulse 99 99 99 Oximetry O2 Sat by Pulse Oximetry [ Assessment] 10/19/16 10/19/16 10/19/16 10:35 11:00 11:30 Temperature Pulse Rate 109 H 111 H Respiratory 32 H 29 H Rate Blood Pressure 147/89 150/95 O2 Sat by Pulse 98 99 Oximetry O2 Sat by Pulse 99 Oximetry [ Assessment] 10/19/16 10/19/16 10/19/16 12:00 12:01 12:30 Temperature 98.7 F Pulse Rate 117 H 125 H Respiratory 29 H 43 H Rate Blood Pressure 174/93 191/101 O2 Sat by Pulse 100 100 100 Oximetry O2 Sat by Pulse Oximetry [ Assessment] 10/19/16 10/19/16 10/19/16 13:16 13:48 15:37 Temperature Pulse Rate 117 H 115 H 122 H Respiratory Rate Blood Pressure 167/96 160/84 182/104 O2 Sat by Pulse 99 Oximetry O2 Sat by Pulse Oximetry [ Assessment] 10/19/16 15:48 Temperature 98.6 F Pulse Rate Respiratory Rate Blood Pressure O2 Sat by Pulse Oximetry O2 Sat by Pulse Oximetry [ Assessment] - General Appearance General appearance: intubated (trach) EENT: ATNC Respiratory: Present: Other (coarse anterior breath sounds) Cardiology: regular, tachycardia Gastrointestinal: hypoactive bowel sounds Musculoskeletal: other (trace edema) - Lab 10/19/16 04:00 10/19/16 04:00 Most recent lab results Calcium 9.3 mg/dL (8.4-10.2) 10/19/16 04:00 Phosphorus 2.60 mg/dL (2.5-4.5) D 10/19/16 04:00 Magnesium 1.70 mg/dL (1.7-2.3) 10/19/16 04:00 Urine Creatinine 54.8 mg/dL (0.1-20.0) H 09/21/16 12:00 Urine Sodium 36 mEq/L 09/16/16 19:19 Urine Total Protein 16 mg/dL (5-11.8) H 09/16/16 19:19
[2016-10-19] MEDS: DIFLUCAN 200 MG/100 ML BAG IV SCH (18:02)
[2016-10-19] MEDS ORDERED: INTRALIPID 20% 250 ML IV SCH (20:00)
[2016-10-19] MEDS ORDERED: TPN ADULT 2,016 ML IV SCH (20:00)
[2016-10-20] MEDS: LOPRESSOR IV SCH ×6 (01:42→22:09)
[2016-10-20] MEDS: fentaNYL DRIP Premix 2,000 MCG/100 ML BAG IV SCH ×2 (03:30→22:11)
[2016-10-20] MEDS: HumuLIN R SUB-Q SCH ×3 (05:58→12:00)
[2016-10-20 06:21] LABS: Hematocrit 23.5 % (30.3-42.9); Hemoglobin 7.7 gm/dl (10.1-14.3); Mean Corpuscular HGB Conc 33 % (30-34); Mean Corpuscular Hemoglobin 31 pg (28-32); Mean Corpuscular Volume 94 fl (79-97); Platelet Count 286 K/mm3 (140-440); Red Blood Count 2.51 M/mm3 (3.65-5.03); Red Cell Distribution Width 17.5 % (13.2-15.2)
[2016-10-20 06:50] LABS: BUN/Creatinine Ratio 34.81; Calcium 9.2 mg/dL (8.4-10.2)
--- NOTE | 2016-10-20 08:43 | Progress Note ---
Assessment and Plan Assessment: 1) Recurrent Sepsis: improving leukocytosis and resolved fever ? unclear source - likely abdominal wall abscess at surgical site -S/p multiple episodes of sepsis - initially due to presumed aspiration pneumonia, then septic episode on 09/23 from Candidemia. Then from - peritonitis from gastric perforation +/- UTI. Current septic episode from surgical site infection. -CRP 19 --> 22 -Procalcitonin=24 --> 16 (improving) -repeat CT abdomen no leak no abscess -repeat blood cx - neg -Wound cx from surgical site infection + GNR and Silvia albicans 2) Peritonitis: from gastric perforation from dislodged PEG with significant ascites -S/P exlap, repair of gastric perforation with wedge gastrectomy, abdominal washout, drain placement on 10/05. 3) Candidemia: -Blood cultures positive for Silvia albicans on 09/23 -Blood cultures positive on 09/25 -Blood cutlures negative on 09/30 -PICC line changed on 10/03 -Source ? gastric perf (PEG placed on 09/20) +/- TPN +/- central lines -TTE 10/07 no vegetations -PICC exchanged on 10/03 -fully treated with micafungin for 14 days last day 10/13 4) CA-UTI s/p gutierrez exchanged 5) Diarrhea - ? etiology ? antibiotic-induced, not better 6) Initial presumed aspiration pneumonia 7) Presumed UTI: urine cx 09/23 multiple species 8) Respiratory failure s/p trach 9) Recent CVA-left MCA CVA 10) Uncontrolled HTN 11) Acute on CKD 12) Extensive back skin peeling ? burn from gastric secretions. Doubt allergic reaction 13) Severe anemia; ? from GI bleed Plan: -recheck procalcitonin -continue IV vancomycin in view of surgical site infection day 4 -continue meropenem to cover peritonitis (was on zosyn before) day 15 -continue fluconazole day 2 -will adjust once cultures available -contact isolation in view of GNR growing from abd wall abscess - suspect it would be a MDR -discussed with ICU staff Thank you Dr Means for your consultation, will follow up with you. Pauline Carias MD Infectious Diseases Specialist [facility] ([facility] M [phone] O [phone] Subjective Date of service: 10/20/16 Principal diagnosis: Acute resp failure on MVS; S/P Acute CVA; Acute Encephalopathy; JUANITA Interval history: Somnolent open eyes spontaneously, not following commands, on the vent via trach. fever trending down Microbiology: Blood cultures: 09/13 neg 8 Silvia albicans 09/25 Silvia 09/29 neg 10/07 NGTD Urine cultures: 09/10 neg 09/13 neg 8/ 10-100K mixed species 10/07 pending Respiratory cultures: 09/07 neg 09/13 neg 09/23 neg Wound cultures: 10/17 abd wall wound purulence + GNR Stool cultures: Current Antimicrobials: Meropenem 10/10 Vanco 10/17 Previous Antimicrobials: Zosyn 10/07 Vancomycin PO 10/01 Metronidazole 09/25 Micafungin 09/27-10/13 Objective - Exam Narrative Exam: General appearance: alert, non verbal, on the vent via trach no following commands Eyes: anicteric sclera, moist conjunctivae; PERRLA HENT: Atraumatic; oropharynx limited; Normal external ears. +NGT with greenish secretion Neck: +trach in place; supple, no thyromegaly or lymphadenopathy Lungs: coarse BS bilateral CV: tachycardic Abdomen: Soft, non-tender, +drain with purulent drainage, + diarrhea via rectal tube leaking. +old PEG site no drainage. Right sided Surgical site packed still draining serous fluid Extremities: +peripheral edema no extremity lymphadenopathy Skin: Julian sub mammary ulcers, extensive skin peeling on back Psych: somnolent . Neuro: somnolent non verbal on the vent. Lines: left arm PICC placed on 10/03 - Constitutional Vitals: Vital Signs Temp Pulse Resp BP Pulse Ox 98.2 F 94 H 21 144/77 97 10/20/16 07:57 10/20/16 08:30 10/20/16 08:30 10/20/16 08:30 10/20/16 08:30 Temperature -Last 24 Hours Temperature 98.2 F Temperature 100.3 F Temperature 99.6 F Temperature 99.0 F Temperature 98.6 F Temperature 98.7 F - Labs CBC & Chem 7: 10/20/16 06:00 10/20/16 06:00 Labs: Abnormal lab results 10/17/16 10/17/16 10/19/16 Range/Units 12:17 17:14 11:46 WBC (4.5-11.0) K/mm3 RBC (3.65-5.03) M/mm3 Hgb (10.1-14.3) gm/dl Hct (30.3-42.9) % RDW (13.2-15.2) % Carbon Dioxide (22-30) mmol/L BUN (7-17) mg/dL Creatinine (0.7-1.2) mg/dL POC Glucose 167 H 126 H 116 H (70-105) 10/19/16 10/20/16 10/20/16 Range/Units 23:59 06:00 06:00 WBC 19.7 H (4.5-11.0) K/mm3 RBC 2.51 L (3.65-5.03) M/mm3 Hgb 7.7 L (10.1-14.3) gm/dl Hct 23.5 L (30.3-42.9) % RDW 17.5 H (13.2-15.2) % Carbon Dioxide 17 L (22-30) mmol/L BUN 94 H (7-17) mg/dL Creatinine 2.7 H (0.7-1.2) mg/dL POC Glucose 117 H (70-105)
--- NOTE | 2016-10-20 09:28 | Progress Note ---
Assessment and Plan Assessment and plan: --Acute hypoxic respiratory failure Vent dependent, Status post trach and peg, pulmonary following --Severe sepsis with septic shock UTI/candidemia/peritonitis due to gastric perforation from dislodged PEG Off pressors, on vancomycin and Meropenem as per ID --Acute massive left MCA CVA, with mass effect Antiplatelets and statins Supportive care --Toxic metabolic Encephalopathy Unresponsive, supportive care, poor prognosis --Paroxysmal A. fib Status post failed conversion on 09/25 Received amiodarone drip , currently On beta blockers No anticoagulation due to anemia/thrombocytopenia, massive stroke --Acute on chronic kidney disease, On dialysis prn managed by Nephrology . Creatinine 2.7 today --Dislodged PEG Status post wedge gastrectomy, repair of gastric perforation, abdominal washout and drain placement --Acute blood loss anemia requiring multiple PRBC transfusions. Hemoglobin 7.4 today . Repeat stool occult blood positive. GI Physician was following, now signed off. Conservative management Monitor H&H closely, --Candidemia. completed micofungin Toxic metabolic encephalopathy,unresponsive. neurology following --Diabetes mellitus type 2 Insulin/SSI --Leukocytosis . WBC trending down --Severe protein caloric malnutrition, nutrition supplements to proceeding --s/p Thrombocytopenia. Now resolved --DVT prophylaxis SCDs, no pharmacological agent given anemia requiring multiple PRBC transfusions , thrombocytopenia, massive stroke --Full code status, very poor prognosis Had a family meeting Monday10/10/16 plan of care poor prognosis was discussed. Present at meeting was the Risk management staff, manager bridge and hospitalist , patient's son and patients' sister. Had another family meeting Monday10/14/16 at 10:00am with Dr. Nazario, , Mgmt Specialist and patient's daughter. We discussed diagnosis,plan and prognosis, and all her questions were answered. Dispo. Very poor prognosis. Patient needs LTAC placement Critical care time 31 minutes History Interval history: Patient seen and evaluated in her room this morning medical record reviewed No new events reported by the nursing staff Patient is vent dependent, unresponsive, awaiting LTAC placement Hospitalist Physical - Constitutional Vitals: Temp Pulse Resp BP Pulse Ox 98.2 F 94 H 21 144/77 97 10/20/16 07:57 10/20/16 08:30 10/20/16 08:30 10/20/16 08:30 10/20/16 08:30 General appearance: Present: no acute distress, obese, other (on vent, non- responsive) - EENT Eyes: Present: PERRL - Neck Neck: Present: supple, other (status post tracheostomy and vent) - Respiratory Respiratory effort: normal Respiratory: bilateral: diminished, rhonchi, negative: rales, wheezing - Cardiovascular Rhythm: regular Heart Sounds: Present: S1 & S2 - Extremities Extremities: abnormal Extremity abnormal: edema - Abdominal General gastrointestinal: soft, non-tender, non-distended, normal bowel sounds, other (PEG tube in place) - Integumentary Integumentary: Present: clear, warm - Psychiatric Psychiatric: other (unresponsive) - Neurologic Neurologic: other (unresponsive) Results - Labs CBC & Chem 7: 10/20/16 06:00 10/20/16 06:00 Labs: Laboratory Last Values WBC 19.7 K/mm3 (4.5-11.0) H 10/20/16 06:00 RBC 2.51 M/mm3 (3.65-5.03) L 10/20/16 06:00 Hgb 7.7 gm/dl (10.1-14.3) L 10/20/16 06:00 Hct 23.5 % (30.3-42.9) L 10/20/16 06:00 MCV 94 fl (79-97) 10/20/16 06:00 MCH 31 pg (28-32) 10/20/16 06:00 MCHC 33 % (30-34) 10/20/16 06:00 RDW 17.5 % (13.2-15.2) H 10/20/16 06:00 Plt Count 286 K/mm3 (140-440) 10/20/16 06:00 Lymph % (Auto) 6.9 % (13.4-35.0) L 09/21/16 07:45 [place] % (Auto) 0.5 % (0.0-7.3) 10/03/16 05:10 Eos % (Auto) 1.3 % (0.0-4.3) 10/03/16 05:10 Baso % (Auto) 0.2 % (0.0-1.8) 09/21/16 07:45 Lymph # 0.9 K/mm3 (1.2-5.4) L 09/21/16 07:45 [place] # 0.1 K/mm3 (0.0-0.8) 10/03/16 05:10 Eos # 0.2 K/mm3 (0.0-0.4) 10/03/16 05:10 Baso # 0.0 K/mm3 (0.0-0.1) 10/03/16 05:10 Add Manual Diff Complete 10/10/16 05:00 Total Counted 100 10/10/16 05:00 Seg Neutrophils % Coupon Collection Clerk 10/03/16 05:10 Seg Neuts % (Manual) 61.0 % (40.0-70.0) 10/10/16 05:00 Band Neutrophils % 24.0 % 10/10/16 05:00 Lymphocytes % (Manual) 10.0 % (13.4-35.0) L 10/10/16 05:00 Reactive Lymphs % (Man) 0 % 10/10/16 05:00 Monocytes % (Manual) 2.0 % (0.0-7.3) 10/10/16 05:00 Eosinophils % (Manual) 0 % (0.0-4.3) 10/10/16 05:00 Basophils % (Manual) 0 % (0.0-1.8) 10/10/16 05:00 Metamyelocytes % 3.0 % 10/10/16 05:00 Myelocytes % 0 % 10/10/16 05:00 Promyelocytes % 0 % 10/10/16 05:00 Blast Cells % 0 % 10/10/16 05:00 Nucleated RBC % 4.0 % (0.0-0.9) H 10/10/16 05:00 Seg Neutrophils # 11.9 K/mm3 (1.8-7.7) H 10/03/16 05:10 Seg Neutrophils # Man 11.3 K/mm3 (1.8-7.7) H 10/10/16 05:00 Band Neutrophils # 4.4 K/mm3 10/10/16 05:00 Lymphocytes # (Manual) 1.9 K/mm3 (1.2-5.4) 10/10/16 05:00 Abs React Lymphs (Man) 0.0 K/mm3 10/10/16 05:00 Monocytes # (Manual) 0.4 K/mm3 (0.0-0.8) 10/10/16 05:00 Eosinophils # (Manual) 0.0 K/mm3 (0.0-0.4) 10/10/16 05:00 Basophils # (Manual) 0.0 K/mm3 (0.0-0.1) 10/10/16 05:00 Metamyelocytes # 0.6 K/mm3 10/10/16 05:00 Myelocytes # 0.0 K/mm3 10/10/16 05:00 Promyelocytes # 0.0 K/mm3 10/10/16 05:00 Blast Cells # 0.0 K/mm3 10/10/16 05:00 Pathologist Review 09/13/16 04:00 WBC Morphology Not Reportable 10/10/16 05:00 Hypersegmented Neuts Not Reportable 10/10/16 05:00 Hyposegmented Neuts Not Reportable 10/10/16 05:00 Hypogranular Neuts Not Reportable 10/10/16 05:00 Smudge Cells Not Reportable 10/10/16 05:00 Toxic Granulation Not Reportable 10/10/16 05:00 Toxic Vacuolation Not Reportable 10/10/16 05:00 Dohle Bodies Not Reportable 10/10/16 05:00 Pelger-Huet Anomaly Not Reportable 10/10/16 05:00 Jasmina Rods Not Reportable 10/10/16 05:00 Platelet Estimate Consistent w auto 10/10/16 05:00 Clumped Platelets Not Reportable 10/10/16 05:00 Plt Clumps, EDTA Not Reportable 10/10/16 05:00 Large Platelets Not Reportable 10/10/16 05:00 Giant Platelets Not Reportable 10/10/16 05:00 Platelet Satelliting Not Reportable 10/10/16 05:00 Plt Morphology Comment Not Reportable 10/10/16 05:00 RBC Morphology Not Reportable 10/10/16 05:00 Dimorphic RBCs Not Reportable 10/10/16 05:00 Polychromasia Rare 10/10/16 05:00 Hypochromasia 1+ 10/10/16 05:00 Poikilocytosis Not Reportable 10/10/16 05:00 Anisocytosis 1+ 10/10/16 05:00 Microcytosis Not Reportable 10/10/16 05:00 Macrocytosis 1+ 10/10/16 05:00 Spherocytes Not Reportable 10/10/16 05:00 Pappenheimer Bodies Not Reportable 10/10/16 05:00 Sickle Cells Not Reportable 10/10/16 05:00 Target Cells Not Reportable 10/10/16 05:00 Tear Drop Cells Not Reportable 10/10/16 05:00 Ovalocytes Not Reportable 10/10/16 05:00 Stomatocytes Few 10/06/16 03:50 Helmet Cells Not Reportable 10/10/16 05:00 Monet[place] Bodies Not Reportable 10/10/16 05:00 [place] Rings Not Reportable 10/10/16 05:00 [place] Cells Not Reportable 10/10/16 05:00 Bite Cells Not Reportable 10/10/16 05:00 Crenated Cell Not Reportable 10/10/16 05:00 Elliptocytes Not Reportable 10/10/16 05:00 Acanthocytes (Spur) Not Reportable 10/10/16 05:00 Rouleaux Not Reportable 10/10/16 05:00 Hemoglobin C Crystals Not Reportable 10/10/16 05:00 Schistocytes Not Reportable 10/10/16 05:00 Malaria parasites Not Reportable 10/10/16 05:00 ESR > 140.0 mm/Hr (0-20) 09/08/16 11:48 Jun Bodies Not Reportable 10/10/16 05:00 Hem Pathologist Commnt No 10/10/16 05:00 PT 19.0 Sec. (12.2-14.9) H 10/09/16 03:45 INR 1.51 (0.87-1.13) H 10/09/16 03:45 APTT 33.0 Sec. (24.2-36.6) 10/09/16 03:45 Thrombin Time 16.8 Sec. (15.1-19.6) 09/03/16 00:10 Fibrinogen 750 mg/dl (211-480) H 09/08/16 11:48 Lupus Anticoagulant see below 09/12/16 09:59 LA PTT Baseline See scanned report 09/12/16 09:59 dRVVT Confirm Interp Positive (Negative) H 09/12/16 09:59 dRVVT Screen 50:50 See scanned report 09/12/16 09:59 dRVVT Mix Interpret See scanned report 09/12/16 09:59 Protein C Antigen 122 % (70-140) 09/08/16 15:35 Free Protein S 97 % normal (50-147) 09/08/16 15:35 Total Protein S 109 % (70-140) 09/08/16 15:35 Antithrombin III Ag 100 % (80-120) 09/08/16 15:35 Heparin Anti-Xa, Unfract Negative (Negative) 09/29/16 13:35 Factor V Activity 182 % (65-150) H 09/08/16 15:35 POC ABG pH 7.561 (7.35-7.45) H 10/16/16 20:48 POC ABG pCO2 24.4 (35-45) L 10/16/16 20:48 POC ABG pO2 77 (80-105) L 10/16/16 20:48 POC ABG HCO3 21.9 10/16/16 20:48 POC ABG Total CO2 23 10/16/16 20:48 POC ABG O2 Sat 97 10/16/16 20:48 POC ABG Base Excess 0 10/16/16 20:48 FiO2 25 % 10/16/16 20:48 Sodium 140 mmol/L (137-145) 10/20/16 06:00 Potassium 4.4 mmol/L (3.6-5.0) D 10/20/16 06:00 Chloride 103.1 mmol/L (98-107) 10/20/16 06:00 Carbon Dioxide 17 mmol/L (22-30) L 10/20/16 06:00 Anion Gap 24 mmol/L 10/20/16 06:00 BUN 94 mg/dL (7-17) H 10/20/16 06:00 Creatinine 2.7 mg/dL (0.7-1.2) H 10/20/16 06:00 Estimated GFR 23 ml/min 10/20/16 06:00 BUN/Creatinine Ratio 34.81 % 10/20/16 06:00 Glucose 85 mg/dL (65-100) 10/20/16 06:00 POC Glucose 90 (70-105) 10/20/16 05:35 Osmolality 351 Mosm/kg 09/16/16 11:47 Lactic Acid 4.50 mmol/L (0.7-2.0) H* 09/28/16 07:25 Calcium 9.2 mg/dL (8.4-10.2) 10/20/16 06:00 Phosphorus 3.20 mg/dL (2.5-4.5) D 10/20/16 06:00 Magnesium 1.90 mg/dL (1.7-2.3) 10/20/16 06:00 Total Bilirubin 0.30 mg/dL (0.1-1.2) 10/17/16 04:24 Direct Bilirubin 0.3 mg/dL (0-0.2) H 10/10/16 05:00 Indirect Bilirubin 0.1 mg/dL 10/10/16 05:00 AST 39 units/L (5-40) 10/17/16 04:24 ALT 13 units/L (7-56) 10/17/16 04:24 Alkaline Phosphatase 138 units/L (35-129) H 10/17/16 04:24 Ammonia 27.0 umol/L (25-60) 09/07/16 08:37 Total Creatine Kinase 121 units/L (30-135) 09/29/16 20:12 CK-MB (CK-2) < 1.0 ng/mL (0.0-4.0) 09/29/16 20:12 CK-MB (CK-2) Rel Index 0.8 (0-4) 09/29/16 20:12 Troponin T 0.204 ng/mL (0.00-0.029) H* 09/29/16 20:12 C-Reactive Protein 15.80 mg/dL (0.00-1.30) H 10/11/16 04:15 Total Protein 6.2 g/dL (6.3-8.2) L 10/17/16 04:24 Albumin 1.5 g/dL (3.9-5) L 10/17/16 04:24 Albumin/Globulin Ratio 0.3 % 10/17/16 04:24 Triglycerides 137 mg/dL (2-149) 09/29/16 20:12 Cholesterol 31 mg/dL (50-199) L 09/29/16 20:12 LDL Cholesterol Direct 4 mg/dL (50-130) L 09/29/16 20:12 HDL Cholesterol 3 mg/dL (40-59) L 09/29/16 20:12 Cholesterol/HDL Ratio 10.33 % 09/29/16 20:12 Angiotensin Convert Enz See scanned report 09/08/16 11:48 Renin 0.99 ng/mL/h (0.25-5.82) 10/07/16 10:56 Aldosterone <1 ng/dL () 10/07/16 10:56 Aldosterone/Renin Dir see below 10/07/16 10:56 Serotonin Release Assay See scanned report 09/29/16 13:35 TSH 1.010 mlU/mL (0.270-4.200) 09/07/16 08:37 HCG, Qual Negative (Negative) 09/03/16 00:10 Urine Color [place] (Yellow) 10/07/16 18:30 Urine Turbidity Turbid (Clear) 10/07/16 18:30 Urine pH 7.0 (5.0-7.0) 10/07/16 18:30 Ur Specific [place] 1.012 (1.003-1.030) 10/07/16 18:30 Urine Protein 100 mg/dl mg/dL (Negative) 10/07/16 18:30 Urine Glucose (UA) Neg mg/dL (Negative) 10/07/16 18:30 Urine Ketones Neg mg/dL (Negative) 10/07/16 18:30 Urine Blood Lg (Negative) 10/07/16 18:30 Urine Nitrite Neg (Negative) 10/07/16 18:30 Urine Bilirubin Neg (Negative) 10/07/16 18:30 Urine Urobilinogen < 2.0 mg/dL (<2.0) 10/07/16 18:30 Ur Leukocyte Esterase Lg (Negative) 10/07/16 18:30 Urine WBC (Auto) > 182.0 /HPF (0.0-6.0) H 10/07/16 18:30 Urine RBC (Auto) > 182.0 /HPF (0.0-6.0) 10/07/16 18:30 U Epithel Cells (Auto) 1.0 /HPF (0-13.0) 10/07/16 18:30 Urine Bacteria (Auto) 3+ /HPF (Negative) 10/07/16 18:30 Urine WBC Clumps 2+ /HPF 09/07/16 02:47 Hyaline Casts 4 /LPF 09/07/16 02:47 Urine Mucus Few /HPF 10/07/16 18:30 Urine Yeast (Budding) 3+ /HPF 10/07/16 18:30 Urine Eosinophils None seen (None Seen) 09/07/16 16:00 Urine Total Volume 1350 09/21/16 12:00 Urine Creatinine 54.8 mg/dL (0.1-20.0) H 09/21/16 12:00 Height (in) 67.0 inches 09/21/16 12:00 Weight (lb) 92.0 lbs 09/21/16 12:00 Creatinine Clearance 09/21/16 12:00 Urine Sodium 36 mEq/L 09/16/16 19:19 Urine Total Protein 16 mg/dL (5-11.8) H 09/16/16 19:19 Vancomycin Trough 2.3 ug/mL (5.0-20.0) L 09/21/16 13:00 Random Vancomycin 17.0 ug/mL (0-40.0) 10/20/16 06:00 Urine Opiates Screen Presumptive negative 09/03/16 15:11 Urine Methadone Screen Presumptive positive 09/03/16 15:11 Ur Barbiturates Screen Presumptive positive 09/03/16 15:11 Ur Phencyclidine Scrn Presumptive negative 09/03/16 15:11 Ur Amphetamines Screen Presumptive negative 09/03/16 15:11 U Benzodiazepines Scrn Presumptive negative 09/03/16 15:11 Urine Cocaine Screen Presumptive negative 09/03/16 15:11 U Marijuana (THC) Screen Presumptive positive 09/03/16 15:11 Drugs of Abuse Note Disclamer 09/03/16 15:11 Rheumatoid Factor 24 IU/ml (0-13) H 09/08/16 11:48 SAHIL Screen Negative (Negative) 09/07/16 09:20 Proteinase 3 (PR3) Ab <1.0 AI (<1.0) 09/07/16 09:20 Myeloperoxidase Ab <1.0 AI (<1.0) 09/07/16 09:20 Sjogren's Antibody <1.0 AI (<1.0) 09/08/16 15:35 Scl-70 Scleroderma Ab <1.0 AI (<1.0) 09/08/16 15:35 Centromere B Antibody <1.0 AI (<1.0) 09/08/16 12:02 Heparin-induced Plt Ab Negative (Negative) 09/29/16 13:35 UF Heparin High Dose 11 % Release 09/29/16 13:35 SUDHIR UFH Low Dose 0.1 6 % Release 09/29/16 13:35 SUDHIR UFH Low Dose 0.5 8 % Release 09/29/16 13:35 Cardiolipid IgG Ab <14 GPL (<=14) 09/12/16 09:59 Cardiolipid IgA Ab <11 APL (<=11) 09/12/16 09:59 Cardiolipid IgM Ab <12 MPL (<=12) 09/12/16 09:59 Complement C3 148 mg/dL (90-180) 09/07/16 09:20 Complement C4 58 mg/dL (16-47) H 09/07/16 09:20 RPR Nonreactive (Nonreactive) 09/08/16 11:48 Hepatitis A IgM Ab Non-reactive (NonReactive) 09/24/16 14:40 Hep Bs Antigen Non-reactive (Negative) 09/24/16 14:40 Hep B Core IgM Ab Non-reactive (NonReactive) 09/24/16 14:40 Hepatitis C Antibody Non-reactive (NonReactive) 09/24/16 14:40 HIV 1&2 Antibody Rapid Non react (Non React) 09/08/16 11:48 HIV P24 Antigen Non react (Non React) 09/08/16 11:48 Miscellaneous Test Flexitest 1 H 10/13/16 09:20 Blood Type A POSITIVE 10/09/16 07:20 Antibody Screen Negative 10/09/16 07:20 DELORIS Antibody Screen Negative 09/25/16 10:30 Crossmatch See Detail 10/09/16 07:20
--- NOTE | 2016-10-20 10:57 | Progress Note ---
Assessment and Plan (1) Acute respiratory failure with hypoxia Current Visit: Yes Status: Acute Plan to address problem: - continue aspiration precautions / address VAP bundles - continue to wean oxygen for MAP > 94% - continue bronchodilators and pulmonary toilet - s/p tracheostomy - continue daily PSV trials as tolerated (2) Acute CVA (cerebrovascular accident) Current Visit: Yes Status: Acute Plan to address problem: - out of tpA window (initially stopped due to uncontrolled HTN) - Left MCA teritory stroke with some midline shift on last CT - seen by neurology and prognosis for recovery of mental status guarded to poor - optimizing secondary prevention modalities now (BP, lipid anti-platelet therapy) - off systemic steroids now (started earlier for edema) - clinically about the same (3) Hypertensive emergency Current Visit: Yes Status: Acute Plan to address problem: - stopped all antihypertensives while septic - following clinically (4) Obesity (BMI 35.0-39.9 without comorbidity) Current Visit: Yes Status: Chronic Plan to address problem: - nutrition consult placed for enteral formulation - on TPN now - follow clinically (5) Type 2 diabetes mellitus Current Visit: Yes Status: Chronic Qualifiers: Diabetes mellitus complication status: D Diabetes mellitus complication detail: D Diabetic retinopathy severity: D Proliferative retinopathy type: P Diabetes mellitus macular edema: D Diabetes mellitus snf insulin use : D Laterality: L Chronic kidney disease stage: C Plan to address problem: - continue SSI - discontinued lantus re: hypoglycemia (6) Leukocytosis (leucocytosis) Current Visit: Yes Status: Acute Qualifiers: Leukocytosis type: leukemoid reaction Qualified Code(s): D72.823 - Leukemoid reaction Plan to address problem: - completed cancidas and de-escalate per ID recs - leucocytosis persistent but now trending down (7) Agitation Current Visit: Yes Status: Acute Plan to address problem: - prn sedation / analgesia - tapered off seroquel for now (8) Atrial fibrillation Current Visit: Yes Status: Acute Qualifiers: Atrial fibrillation type: A Plan to address problem: - failed cardioversion earlier - cardiology evaluation ongoing - back in A-fib - continue amiodarone drip (change to p.o. once tolerating enterally) - on IV metoprolol scheduled re: HTN & tachycardia (9) JUANITA (acute kidney injury) Current Visit: Yes Status: Acute Plan to address problem: - on Dialysis now - continue HD/UF per nephrology recommendations (10) Pyrexia of unknown origin Current Visit: Yes Status: Acute Plan to address problem: - dopplers negative for DVT - continue to treat with Anti-infectives (11) Severe sepsis Current Visit: Yes Status: Acute Plan to address problem: - resume vasopressors for MAP < 60mmHg not responsive to volume - all central vascular access has been discontinued after fungemia reported - care plan formulated with ID input - BC's from 09/27/16 growing in 1of 2 but still no ID yet - coomplete micafungin per ID recs and stop date - wound care nurse also managing back wounds - clinically stable and hemodynamically improved - bo to RLQ incision removed and wound drained and packed - on contact precautions per ID (12) Emesis Current Visit: Yes Status: Acute Qualifiers: Vomiting type: V Vomiting Intractability: V Nausea presence: N Plan to address problem: - s/p surgical repair of gastric perforation - continue TPN for now - follow surgery recommendations (13) Discharge planning issues Current Visit: Yes Status: Acute Plan to address problem: - she remains critically ill on life sustaining interventions including MVS and at risk for further acute deterioration including .....30' CCT ....snf prognosis is guarded Subjective Date of service: 10/20/16 Principal diagnosis: Acute resp failure on MVS; S/P Acute CVA; Acute Encephalopathy; JUANITA Interval history: Seen and examined at bedside; 24 hour events reviewed; nursing and respiratory care staff consulted; no adverse overnight events reported to me; resting peacefully in bed; not tolerating PSV trials well; AMS is persistent and remains dialysis dependent Objective Vital Signs - 12hr 10/19/16 10/19/16 10/19/16 23:01 23:02 23:04 Temperature Pulse Rate 122 H 119 H Pulse Rate [ From Monitor] Respiratory 33 H Rate Respiratory Rate [ Generalized] Blood Pressure 155/97 155/97 O2 Sat by Pulse 100 100 Oximetry O2 Sat by Pulse 100 Oximetry [ Assessment] 10/19/16 10/20/16 10/20/16 23:30 00:00 00:30 Temperature 99.6 F Pulse Rate 121 H 116 H 109 H Pulse Rate [ 144 H From Monitor] Respiratory 34 H 31 H 30 H Rate Respiratory Rate [ Generalized] Blood Pressure 156/94 148/91 166/104 O2 Sat by Pulse 100 100 100 Oximetry O2 Sat by Pulse Oximetry [ Assessment] 10/20/16 10/20/16 10/20/16 01:00 01:30 01:42 Temperature Pulse Rate 112 H 113 H 107 H Pulse Rate [ From Monitor] Respiratory 34 H 22 Rate Respiratory Rate [ Generalized] Blood Pressure 179/105 172/103 162/97 O2 Sat by Pulse 100 100 Oximetry O2 Sat by Pulse Oximetry [ Assessment] 10/20/16 10/20/16 10/20/16 02:00 02:30 03:00 Temperature Pulse Rate 104 H 110 H 109 H Pulse Rate [ From Monitor] Respiratory 35 H 37 H 35 H Rate Respiratory Rate [ Generalized] Blood Pressure 157/95 172/98 158/96 O2 Sat by Pulse 100 100 98 Oximetry O2 Sat by Pulse Oximetry [ Assessment] 10/20/16 10/20/16 10/20/16 03:13 03:15 03:30 Temperature Pulse Rate 114 H 105 H Pulse Rate [ From Monitor] Respiratory 40 H Rate Respiratory 37 H Rate [ Generalized] Blood Pressure 158/96 145/84 O2 Sat by Pulse 99 100 Oximetry O2 Sat by Pulse Oximetry [ Assessment] 10/20/16 10/20/16 10/20/16 03:36 04:00 04:30 Temperature 100.3 F H Pulse Rate 112 H 108 H Pulse Rate [ 108 H From Monitor] Respiratory 35 H 25 H Rate Respiratory Rate [ Generalized] Blood Pressure 155/96 132/86 O2 Sat by Pulse 100 100 Oximetry O2 Sat by Pulse Oximetry [ Assessment] 10/20/16 10/20/16 10/20/16 05:01 05:30 05:58 Temperature Pulse Rate 107 H 101 H Pulse Rate [ From Monitor] Respiratory 27 H Rate Respiratory Rate [ Generalized] Blood Pressure 171/109 158/92 146/82 O2 Sat by Pulse Oximetry O2 Sat by Pulse Oximetry [ Assessment] 10/20/16 10/20/16 10/20/16 06:00 06:30 07:00 Temperature Pulse Rate 101 H 101 H 92 H Pulse Rate [ From Monitor] Respiratory 26 H 24 22 Rate Respiratory Rate [ Generalized] Blood Pressure 146/82 141/84 130/74 O2 Sat by Pulse 100 100 100 Oximetry O2 Sat by Pulse Oximetry [ Assessment] 10/20/16 10/20/16 10/20/16 07:30 07:57 08:00 Temperature 98.2 F Pulse Rate 90 88 Pulse Rate [ From Monitor] Respiratory 23 18 Rate Respiratory Rate [ Generalized] Blood Pressure 123/68 124/61 O2 Sat by Pulse 100 100 Oximetry O2 Sat by Pulse Oximetry [ Assessment] 10/20/16 10/20/16 08:05 08:30 Temperature Pulse Rate 93 H 94 H Pulse Rate [ From Monitor] Respiratory 36 H 21 Rate Respiratory Rate [ Generalized] Blood Pressure 124/61 144/77 O2 Sat by Pulse 96 97 Oximetry O2 Sat by Pulse Oximetry [ Assessment] Constitutional: no acute distress, other (eyes open; not tracking movements) Eyes: non-icteric, other (tracheostomy tube in midline of neck) ENT: oropharynx moist Neck: supple, no lymphadenopathy Effort: mildly labored Ascultation: Bilateral: rhonchi Cardiovascular: regular rate and rhythm Gastrointestinal: hypoactive bowel sounds, soft, non-tender, non-distended, other (hema drain in place) Integumentary: other (erythema to skin of back with some healing areas; no obvious TEN's features) Extremities: no cyanosis, no edema, pulses normal, no ischemia or petechiae Neurologic: pupils equal and round, other (sedated) Psychiatric: other (unable to assess) CBC and BMP: 10/20/16 06:00 10/21/16 04:00 ABG, PT/INR, D-dimer: ABG POC ABG pH 7.561 (7.35-7.45) H 10/16/16 20:48 POC ABG pCO2 24.4 (35-45) L 10/16/16 20:48 POC ABG pO2 77 (80-105) L 10/16/16 20:48 POC ABG HCO3 21.9 10/16/16 20:48 POC ABG Total CO2 23 10/16/16 20:48 POC ABG O2 Sat 97 10/16/16 20:48 PT/INR, D-dimer PT 19.0 Sec. (12.2-14.9) H 10/09/16 03:45 INR 1.51 (0.87-1.13) H 10/09/16 03:45 Abnormal lab findings: Abnormal Labs 09/03/16 09/03/16 09/03/16 12:12 15:07 16:20 WBC RBC Hgb Hct MCV MCH MCHC RDW Plt Count Lymph % (Auto) [place] % (Auto) Lymph # [place] # Seg Neutrophils % Seg Neuts % (Manual) Lymphocytes % (Manual) Monocytes % (Manual) Eosinophils % (Manual) Basophils % (Manual) Nucleated RBC % Seg Neutrophils # Seg Neutrophils # Man Lymphocytes # (Manual) Monocytes # (Manual) Eosinophils # (Manual) PT INR Fibrinogen dRVVT Confirm Interp Factor V Activity POC ABG pH 7.452 H POC ABG pCO2 POC ABG pO2 Sodium Potassium Chloride Carbon Dioxide BUN Creatinine Glucose POC Glucose 178 H Lactic Acid Calcium Phosphorus 2.20 L Magnesium 1.60 L Direct Bilirubin ALT Alkaline Phosphatase Troponin T C-Reactive Protein Total Protein Albumin Triglycerides Cholesterol LDL Cholesterol Direct HDL Cholesterol Urine WBC (Auto) Urine Creatinine Urine Total Protein Vancomycin Trough Rheumatoid Factor Complement C4 Miscellaneous Test Crossmatch 09/03/16 09/03/16 09/03/16 17:57 17:58 23:50 WBC RBC Hgb Hct MCV MCH MCHC RDW Plt Count Lymph % (Auto) [place] % (Auto) Lymph # [place] # Seg Neutrophils % Seg Neuts % (Manual) Lymphocytes % (Manual) Monocytes % (Manual) Eosinophils % (Manual) Basophils % (Manual) Nucleated RBC % Seg Neutrophils # Seg Neutrophils # Man Lymphocytes # (Manual) Monocytes # (Manual) Eosinophils # (Manual) PT INR Fibrinogen dRVVT Confirm Interp Factor V Activity POC ABG pH POC ABG pCO2 POC ABG pO2 Sodium Potassium Chloride Carbon Dioxide BUN Creatinine Glucose POC Glucose 162 H 145 H Lactic Acid Calcium Phosphorus 2.30 L Magnesium Direct Bilirubin ALT Alkaline Phosphatase Troponin T C-Reactive Protein Total Protein Albumin Triglycerides Cholesterol LDL Cholesterol Direct HDL Cholesterol Urine WBC (Auto) Urine Creatinine Urine Total Protein Vancomycin Trough Rheumatoid Factor Complement C4 Miscellaneous Test Crossmatch 09/04/16 09/04/16 09/04/16 03:31 03:31 05:42 WBC RBC Hgb 9.7 L D Hct MCV 72 L MCH 23 L MCHC RDW 17.5 H Plt Count Lymph % (Auto) 11.1 L [place] % (Auto) Lymph # [place] # Seg Neutrophils % 84.3 H Seg Neuts % (Manual) Lymphocytes % (Manual) Monocytes % (Manual) Eosinophils % (Manual) Basophils % (Manual) Nucleated RBC % Seg Neutrophils # 8.9 H Seg Neutrophils # Man Lymphocytes # (Manual) Monocytes # (Manual) Eosinophils # (Manual) PT INR Fibrinogen dRVVT Confirm Interp Factor V Activity POC ABG pH POC ABG pCO2 POC ABG pO2 Sodium 135 L Potassium 2.9 L* Chloride 97.2 L Carbon Dioxide 19 L BUN Creatinine 1.7 H Glucose 170 H POC Glucose 152 H Lactic Acid Calcium Phosphorus Magnesium Direct Bilirubin ALT Alkaline Phosphatase Troponin T C-Reactive Protein Total Protein Albumin Triglycerides 160 H Cholesterol LDL Cholesterol Direct HDL Cholesterol 31 L Urine WBC (Auto) Urine Creatinine Urine Total Protein Vancomycin Trough Rheumatoid Factor Complement C4 Miscellaneous Test Crossmatch 09/04/16 09/04/16 09/04/16 11:34 17:46 23:29 WBC RBC Hgb Hct MCV MCH MCHC RDW Plt Count Lymph % (Auto) [place] % (Auto) Lymph # [place] # Seg Neutrophils % Seg Neuts % (Manual) Lymphocytes % (Manual) Monocytes % (Manual) Eosinophils % (Manual) Basophils % (Manual) Nucleated RBC % Seg Neutrophils # Seg Neutrophils # Man Lymphocytes # (Manual) Monocytes # (Manual) Eosinophils # (Manual) PT INR Fibrinogen dRVVT Confirm Interp Factor V Activity POC ABG pH POC ABG pCO2 POC ABG pO2 Sodium Potassium Chloride Carbon Dioxide BUN Creatinine Glucose POC Glucose 165 H 210 H 139 H Lactic Acid Calcium Phosphorus Magnesium Direct Bilirubin ALT Alkaline Phosphatase Troponin T C-Reactive Protein Total Protein Albumin Triglycerides Cholesterol LDL Cholesterol Direct HDL Cholesterol Urine WBC (Auto) Urine Creatinine Urine Total Protein Vancomycin Trough Rheumatoid Factor Complement C4 Miscellaneous Test Crossmatch 09/05/16 09/05/16 09/05/16 04:05 04:05 05:38 WBC RBC Hgb Hct MCV 76 L D MCH 23 L MCHC RDW 17.8 H Plt Count Lymph % (Auto) [place] % (Auto) Lymph # [place] # Seg Neutrophils % Seg Neuts % (Manual) Lymphocytes % (Manual) Monocytes % (Manual) Eosinophils % (Manual) Basophils % (Manual) Nucleated RBC % Seg Neutrophils # Seg Neutrophils # Man Lymphocytes # (Manual) Monocytes # (Manual) Eosinophils # (Manual) PT INR Fibrinogen dRVVT Confirm Interp Factor V Activity POC ABG pH POC ABG pCO2 POC ABG pO2 Sodium 134 L Potassium Chloride Carbon Dioxide 18 L BUN Creatinine 1.8 H Glucose 192 H POC Glucose 175 H Lactic Acid Calcium Phosphorus Magnesium Direct Bilirubin ALT Alkaline Phosphatase Troponin T C-Reactive Protein Total Protein Albumin Triglycerides Cholesterol LDL Cholesterol Direct HDL Cholesterol Urine WBC (Auto) Urine Creatinine Urine Total Protein Vancomycin Trough Rheumatoid Factor Complement C4 Miscellaneous Test Crossmatch 09/05/16 09/05/16 09/05/16 11:38 17:48 23:22 WBC RBC Hgb Hct MCV MCH MCHC RDW Plt Count Lymph % (Auto) [place] % (Auto) Lymph # [place] # Seg Neutrophils % Seg Neuts % (Manual) Lymphocytes % (Manual) Monocytes % (Manual) Eosinophils % (Manual) Basophils % (Manual) Nucleated RBC % Seg Neutrophils # Seg Neutrophils # Man Lymphocytes # (Manual) Monocytes # (Manual) Eosinophils # (Manual) PT INR Fibrinogen dRVVT Confirm Interp Factor V Activity POC ABG pH POC ABG pCO2 POC ABG pO2 Sodium Potassium Chloride Carbon Dioxide BUN Creatinine Glucose POC Glucose 164 H 186 H 195 H Lactic Acid Calcium Phosphorus Magnesium Direct Bilirubin ALT Alkaline Phosphatase Troponin T C-Reactive Protein Total Protein Albumin Triglycerides Cholesterol LDL Cholesterol Direct HDL Cholesterol Urine WBC (Auto) Urine Creatinine Urine Total Protein Vancomycin Trough Rheumatoid Factor Complement C4 Miscellaneous Test Crossmatch 09/06/16 09/06/16 09/06/16 04:12 05:59 07:32 WBC RBC Hgb Hct MCV MCH MCHC RDW Plt Count Lymph % (Auto) [place] % (Auto) Lymph # [place] # Seg Neutrophils % Seg Neuts % (Manual) Lymphocytes % (Manual) Monocytes % (Manual) Eosinophils % (Manual) Basophils % (Manual) Nucleated RBC % Seg Neutrophils # Seg Neutrophils # Man Lymphocytes # (Manual) Monocytes # (Manual) Eosinophils # (Manual) PT INR Fibrinogen dRVVT Confirm Interp Factor V Activity POC ABG pH 7.514 H POC ABG pCO2 29.1 L POC ABG pO2 72 L Sodium 133 L Potassium 3.4 L Chloride 94.9 L Carbon Dioxide 19 L BUN 30 H Creatinine 2.1 H Glucose 139 H POC Glucose 146 H Lactic Acid Calcium Phosphorus Magnesium Direct Bilirubin ALT Alkaline Phosphatase Troponin T C-Reactive Protein Total Protein Albumin Triglycerides Cholesterol LDL Cholesterol Direct HDL Cholesterol Urine WBC (Auto) Urine Creatinine Urine Total Protein Vancomycin Trough Rheumatoid Factor Complement C4 Miscellaneous Test Crossmatch 09/06/16 09/06/16 09/06/16 11:57 17:58 19:02 WBC RBC Hgb Hct MCV MCH MCHC RDW Plt Count Lymph % (Auto) [place] % (Auto) Lymph # [place] # Seg Neutrophils % Seg Neuts % (Manual) Lymphocytes % (Manual) Monocytes % (Manual) Eosinophils % (Manual) Basophils % (Manual) Nucleated RBC % Seg Neutrophils # Seg Neutrophils # Man Lymphocytes # (Manual) Monocytes # (Manual) Eosinophils # (Manual) PT INR Fibrinogen dRVVT Confirm Interp Factor V Activity POC ABG pH 7.465 H POC ABG pCO2 32.0 L POC ABG pO2 Sodium Potassium Chloride Carbon Dioxide BUN Creatinine Glucose POC Glucose 165 H 160 H Lactic Acid Calcium Phosphorus Magnesium Direct Bilirubin ALT Alkaline Phosphatase Troponin T C-Reactive Protein Total Protein Albumin Triglycerides Cholesterol LDL Cholesterol Direct HDL Cholesterol Urine WBC (Auto) Urine Creatinine Urine Total Protein Vancomycin Trough Rheumatoid Factor Complement C4 Miscellaneous Test Crossmatch 09/06/16 09/07/16 09/07/16 23:45 02:47 02:47 WBC RBC Hgb Hct MCV MCH MCHC RDW Plt Count Lymph % (Auto) [place] % (Auto) Lymph # [place] # Seg Neutrophils % Seg Neuts % (Manual) Lymphocytes % (Manual) Monocytes % (Manual) Eosinophils % (Manual) Basophils % (Manual) Nucleated RBC % Seg Neutrophils # Seg Neutrophils # Man Lymphocytes # (Manual) Monocytes # (Manual) Eosinophils # (Manual) PT INR Fibrinogen dRVVT Confirm Interp Factor V Activity POC ABG pH POC ABG pCO2 POC ABG pO2 Sodium Potassium Chloride Carbon Dioxide BUN Creatinine Glucose POC Glucose 204 H Lactic Acid Calcium Phosphorus Magnesium Direct Bilirubin ALT Alkaline Phosphatase Troponin T C-Reactive Protein Total Protein Albumin Triglycerides Cholesterol LDL Cholesterol Direct HDL Cholesterol Urine WBC (Auto) 68.0 H Urine Creatinine 106.1 H Urine Total Protein Vancomycin Trough Rheumatoid Factor Complement C4 Miscellaneous Test Crossmatch 09/07/16 09/07/16 09/07/16 04:50 06:19 06:39 WBC RBC Hgb Hct MCV MCH MCHC RDW Plt Count Lymph % (Auto) [place] % (Auto) Lymph # [place] # Seg Neutrophils % Seg Neuts % (Manual) Lymphocytes % (Manual) Monocytes % (Manual) Eosinophils % (Manual) Basophils % (Manual) Nucleated RBC % Seg Neutrophils # Seg Neutrophils # Man Lymphocytes # (Manual) Monocytes # (Manual) Eosinophils # (Manual) PT INR Fibrinogen dRVVT Confirm Interp Factor V Activity POC ABG pH 7.457 H POC ABG pCO2 32.1 L POC ABG pO2 76 L Sodium 132 L Potassium Chloride 94.7 L Carbon Dioxide BUN 53 H Creatinine 2.9 H Glucose 151 H POC Glucose 149 H Lactic Acid Calcium Phosphorus Magnesium Direct Bilirubin ALT Alkaline Phosphatase Troponin T C-Reactive Protein Total Protein Albumin Triglycerides Cholesterol LDL Cholesterol Direct HDL Cholesterol Urine WBC (Auto) Urine Creatinine Urine Total Protein Vancomycin Trough Rheumatoid Factor Complement C4 Miscellaneous Test Crossmatch 09/07/16 09/07/16 09/07/16 09:20 11:43 11:43 WBC 19.4 H RBC Hgb 8.3 L Hct 26.4 L D MCV 72 L D MCH 22 L MCHC RDW 17.9 H Plt Count Lymph % (Auto) 8.5 L [place] % (Auto) Lymph # [place] # 1.0 H Seg Neutrophils % 85.8 H Seg Neuts % (Manual) Lymphocytes % (Manual) Monocytes % (Manual) Eosinophils % (Manual) Basophils % (Manual) Nucleated RBC % Seg Neutrophils # 16.6 H Seg Neutrophils # Man Lymphocytes # (Manual) Monocytes # (Manual) Eosinophils # (Manual) PT INR Fibrinogen dRVVT Confirm Interp Factor V Activity POC ABG pH POC ABG pCO2 POC ABG pO2 Sodium 134 L Potassium Chloride 97.2 L Carbon Dioxide 20 L BUN 58 H Creatinine 2.9 H Glucose 147 H POC Glucose Lactic Acid Calcium Phosphorus 2.40 L Magnesium 2.40 H Direct Bilirubin ALT Alkaline Phosphatase Troponin T C-Reactive Protein Total Protein 5.8 L Albumin 2.2 L Triglycerides Cholesterol LDL Cholesterol Direct HDL Cholesterol Urine WBC (Auto) Urine Creatinine Urine Total Protein Vancomycin Trough Rheumatoid Factor Complement C4 58 H Miscellaneous Test Crossmatch 09/07/16 09/07/16 09/07/16 11:50 16:00 17:31 WBC RBC Hgb Hct MCV MCH MCHC RDW Plt Count Lymph % (Auto) [place] % (Auto) Lymph # [place] # Seg Neutrophils % Seg Neuts % (Manual) Lymphocytes % (Manual) Monocytes % (Manual) Eosinophils % (Manual) Basophils % (Manual) Nucleated RBC % Seg Neutrophils # Seg Neutrophils # Man Lymphocytes # (Manual) Monocytes # (Manual) Eosinophils # (Manual) PT INR Fibrinogen dRVVT Confirm Interp Factor V Activity POC ABG pH POC ABG pCO2 POC ABG pO2 158 H Sodium Potassium Chloride Carbon Dioxide BUN Creatinine Glucose POC Glucose 175 H Lactic Acid Calcium Phosphorus Magnesium Direct Bilirubin ALT Alkaline Phosphatase Troponin T C-Reactive Protein Total Protein Albumin Triglycerides Cholesterol LDL Cholesterol Direct HDL Cholesterol Urine WBC (Auto) Urine Creatinine 66.3 H Urine Total Protein Vancomycin Trough Rheumatoid Factor Complement C4 Miscellaneous Test Crossmatch 09/07/16 09/08/16 09/08/16 23:50 05:46 06:18 WBC 17.8 H RBC 3.58 L Hgb 8.1 L Hct 25.5 L MCV 71 L MCH 23 L MCHC RDW 18.4 H Plt Count Lymph % (Auto) [place] % (Auto) Lymph # [place] # Seg Neutrophils % Seg Neuts % (Manual) 92.0 H Lymphocytes % (Manual) 6.0 L Monocytes % (Manual) Eosinophils % (Manual) Basophils % (Manual) Nucleated RBC % Seg Neutrophils # Seg Neutrophils # Man 16.4 H Lymphocytes # (Manual) 1.1 L Monocytes # (Manual) Eosinophils # (Manual) PT INR Fibrinogen dRVVT Confirm Interp Factor V Activity POC ABG pH POC ABG pCO2 34.3 L POC ABG pO2 71 L Sodium Potassium Chloride Carbon Dioxide BUN Creatinine Glucose POC Glucose 216 H Lactic Acid Calcium Phosphorus Magnesium Direct Bilirubin ALT Alkaline Phosphatase Troponin T C-Reactive Protein Total Protein Albumin Triglycerides Cholesterol LDL Cholesterol Direct HDL Cholesterol Urine WBC (Auto) Urine Creatinine Urine Total Protein Vancomycin Trough Rheumatoid Factor Complement C4 Miscellaneous Test Crossmatch 09/08/16 09/08/16 09/08/16 06:18 06:51 10:55 WBC RBC Hgb Hct MCV MCH MCHC RDW Plt Count Lymph % (Auto) [place] % (Auto) Lymph # [place] # Seg Neutrophils % Seg Neuts % (Manual) Lymphocytes % (Manual) Monocytes % (Manual) Eosinophils % (Manual) Basophils % (Manual) Nucleated RBC % Seg Neutrophils # Seg Neutrophils # Man Lymphocytes # (Manual) Monocytes # (Manual) Eosinophils # (Manual) PT INR Fibrinogen dRVVT Confirm Interp Factor V Activity POC ABG pH POC ABG pCO2 POC ABG pO2 Sodium 133 L Potassium Chloride 96.9 L Carbon Dioxide 20 L BUN 63 H Creatinine 2.7 H Glucose 195 H POC Glucose 204 H 169 H Lactic Acid Calcium Phosphorus Magnesium Direct Bilirubin ALT Alkaline Phosphatase Troponin T C-Reactive Protein Total Protein Albumin Triglycerides Cholesterol LDL Cholesterol Direct HDL Cholesterol Urine WBC (Auto) Urine Creatinine Urine Total Protein Vancomycin Trough Rheumatoid Factor Complement C4 Miscellaneous Test Crossmatch 09/08/16 09/08/16 09/08/16 11:48 11:48 11:48 WBC RBC Hgb Hct MCV MCH MCHC RDW Plt Count Lymph % (Auto) [place] % (Auto) Lymph # [place] # Seg Neutrophils % Seg Neuts % (Manual) Lymphocytes % (Manual) Monocytes % (Manual) Eosinophils % (Manual) Basophils % (Manual) Nucleated RBC % Seg Neutrophils # Seg Neutrophils # Man Lymphocytes # (Manual) Monocytes # (Manual) Eosinophils # (Manual) PT INR Fibrinogen 750 H dRVVT Confirm Interp Factor V Activity POC ABG pH POC ABG pCO2 POC ABG pO2 Sodium Potassium Chloride Carbon Dioxide BUN Creatinine Glucose POC Glucose Lactic Acid Calcium Phosphorus Magnesium Direct Bilirubin ALT Alkaline Phosphatase Troponin T C-Reactive Protein 15.70 H Total Protein Albumin Triglycerides Cholesterol LDL Cholesterol Direct HDL Cholesterol Urine WBC (Auto) Urine Creatinine Urine Total Protein Vancomycin Trough Rheumatoid Factor 24 H Complement C4 Miscellaneous Test Crossmatch 09/08/16 09/08/16 09/09/16 15:35 18:25 00:24 WBC RBC Hgb Hct MCV MCH MCHC RDW Plt Count Lymph % (Auto) [place] % (Auto) Lymph # [place] # Seg Neutrophils % Seg Neuts % (Manual) Lymphocytes % (Manual) Monocytes % (Manual) Eosinophils % (Manual) Basophils % (Manual) Nucleated RBC % Seg Neutrophils # Seg Neutrophils # Man Lymphocytes # (Manual) Monocytes # (Manual) Eosinophils # (Manual) PT INR Fibrinogen dRVVT Confirm Interp Factor V Activity 182 H POC ABG pH POC ABG pCO2 POC ABG pO2 Sodium Potassium Chloride Carbon Dioxide BUN Creatinine Glucose POC Glucose 184 H 216 H Lactic Acid Calcium Phosphorus Magnesium Direct Bilirubin ALT Alkaline Phosphatase Troponin T C-Reactive Protein Total Protein Albumin Triglycerides Cholesterol LDL Cholesterol Direct HDL Cholesterol Urine WBC (Auto) Urine Creatinine Urine Total Protein Vancomycin Trough Rheumatoid Factor Complement C4 Miscellaneous Test Crossmatch 09/09/16 09/09/16 09/09/16 03:00 03:00 04:04 WBC 27.9 H RBC Hgb 8.7 L Hct 28.1 L MCV 72 L MCH 22 L MCHC RDW 18.4 H Plt Count 485 H Lymph % (Auto) [place] % (Auto) Lymph # [place] # Seg Neutrophils % Seg Neuts % (Manual) 77.0 H Lymphocytes % (Manual) 9.0 L Monocytes % (Manual) Eosinophils % (Manual) Basophils % (Manual) Nucleated RBC % Seg Neutrophils # Seg Neutrophils # Man 21.5 H Lymphocytes # (Manual) Monocytes # (Manual) 2.0 H Eosinophils # (Manual) PT INR Fibrinogen dRVVT Confirm Interp Factor V Activity POC ABG pH POC ABG pCO2 POC ABG pO2 121 H Sodium 135 L Potassium Chloride 96.3 L Carbon Dioxide 21 L BUN 83 H Creatinine 3.0 H Glucose 135 H POC Glucose Lactic Acid Calcium Phosphorus Magnesium Direct Bilirubin ALT Alkaline Phosphatase Troponin T C-Reactive Protein Total Protein Albumin Triglycerides Cholesterol LDL Cholesterol Direct HDL Cholesterol Urine WBC (Auto) Urine Creatinine Urine Total Protein Vancomycin Trough Rheumatoid Factor Complement C4 Miscellaneous Test Crossmatch 09/09/16 09/09/16 09/09/16 05:41 11:55 14:13 WBC RBC Hgb Hct MCV MCH MCHC RDW Plt Count Lymph % (Auto) [place] % (Auto) Lymph # [place] # Seg Neutrophils % Seg Neuts % (Manual) Lymphocytes % (Manual) Monocytes % (Manual) Eosinophils % (Manual) Basophils % (Manual) Nucleated RBC % Seg Neutrophils # Seg Neutrophils # Man Lymphocytes # (Manual) Monocytes # (Manual) Eosinophils # (Manual) PT INR Fibrinogen dRVVT Confirm Interp Factor V Activity POC ABG pH POC ABG pCO2 POC ABG pO2 Sodium Potassium Chloride Carbon Dioxide BUN Creatinine Glucose POC Glucose 155 H 186 H Lactic Acid Calcium Phosphorus Magnesium Direct Bilirubin ALT Alkaline Phosphatase Troponin T C-Reactive Protein Total Protein Albumin Triglycerides Cholesterol LDL Cholesterol Direct HDL Cholesterol Urine WBC (Auto) 25.0 H Urine Creatinine Urine Total Protein Vancomycin Trough Rheumatoid Factor Complement C4 Miscellaneous Test Crossmatch 09/09/16 09/09/16 09/10/16 17:33 23:13 05:09 WBC RBC Hgb Hct MCV MCH MCHC RDW Plt Count Lymph % (Auto) [place] % (Auto) Lymph # [place] # Seg Neutrophils % Seg Neuts % (Manual) Lymphocytes % (Manual) Monocytes % (Manual) Eosinophils % (Manual) Basophils % (Manual) Nucleated RBC % Seg Neutrophils # Seg Neutrophils # Man Lymphocytes # (Manual) Monocytes # (Manual) Eosinophils # (Manual) PT INR Fibrinogen dRVVT Confirm Interp Factor V Activity POC ABG pH POC ABG pCO2 POC ABG pO2 74 L Sodium Potassium Chloride Carbon Dioxide BUN Creatinine Glucose POC Glucose 211 H 215 H Lactic Acid Calcium Phosphorus Magnesium Direct Bilirubin ALT Alkaline Phosphatase Troponin T C-Reactive Protein Total Protein Albumin Triglycerides Cholesterol LDL Cholesterol Direct HDL Cholesterol Urine WBC (Auto) Urine Creatinine Urine Total Protein Vancomycin Trough Rheumatoid Factor Complement C4 Miscellaneous Test Crossmatch 07/22/17 07/22/17 07/22/17 05:17 05:17 11:31 WBC 15.8 H RBC 3.25 L Hgb 7.3 L Hct 22.9 L MCV 71 L MCH 23 L MCHC RDW 18.4 H Plt Count Lymph % (Auto) [place] % (Auto) Lymph # [place] # Seg Neutrophils % Seg Neuts % (Manual) 91.0 H Lymphocytes % (Manual) 4.0 L Monocytes % (Manual) Eosinophils % (Manual) Basophils % (Manual) Nucleated RBC % Seg Neutrophils # Seg Neutrophils # Man 14.4 H Lymphocytes # (Manual) 0.6 L Monocytes # (Manual) Eosinophils # (Manual) PT INR Fibrinogen dRVVT Confirm Interp Factor V Activity POC ABG pH POC ABG pCO2 POC ABG pO2 Sodium Potassium Chloride Carbon Dioxide 21 L BUN 93 H Creatinine 2.9 H Glucose 146 H POC Glucose 188 H Lactic Acid Calcium 8.1 L Phosphorus Magnesium Direct Bilirubin ALT Alkaline Phosphatase Troponin T C-Reactive Protein Total Protein Albumin Triglycerides Cholesterol LDL Cholesterol Direct HDL Cholesterol Urine WBC (Auto) Urine Creatinine Urine Total Protein Vancomycin Trough Rheumatoid Factor Complement C4 Miscellaneous Test Crossmatch 09/10/16 09/10/16 09/10/16 13:17 17:20 23:32 WBC RBC Hgb Hct MCV MCH MCHC RDW Plt Count Lymph % (Auto) [place] % (Auto) Lymph # [place] # Seg Neutrophils % Seg Neuts % (Manual) Lymphocytes % (Manual) Monocytes % (Manual) Eosinophils % (Manual) Basophils % (Manual) Nucleated RBC % Seg Neutrophils # Seg Neutrophils # Man Lymphocytes # (Manual) Monocytes # (Manual) Eosinophils # (Manual) PT INR Fibrinogen dRVVT Confirm Interp Factor V Activity POC ABG pH POC ABG pCO2 POC ABG pO2 Sodium Potassium Chloride Carbon Dioxide BUN Creatinine Glucose POC Glucose 199 H 186 H Lactic Acid Calcium Phosphorus Magnesium Direct Bilirubin ALT Alkaline Phosphatase Troponin T C-Reactive Protein Total Protein Albumin Triglycerides Cholesterol LDL Cholesterol Direct HDL Cholesterol Urine WBC (Auto) Urine Creatinine Urine Total Protein Vancomycin Trough Rheumatoid Factor Complement C4 Miscellaneous Test Crossmatch See Detail 09/11/16 09/11/16 09/11/16 05:10 05:10 05:17 WBC 28.4 H RBC Hgb 9.2 L Hct 29.3 L D MCV 73 L MCH 23 L MCHC RDW 18.9 H Plt Count 452 H Lymph % (Auto) [place] % (Auto) Lymph # [place] # Seg Neutrophils % Seg Neuts % (Manual) 89.5 H Lymphocytes % (Manual) 2.0 L Monocytes % (Manual) Eosinophils % (Manual) Basophils % (Manual) Nucleated RBC % Seg Neutrophils # Seg Neutrophils # Man 25.4 H Lymphocytes # (Manual) 0.6 L Monocytes # (Manual) 1.3 H Eosinophils # (Manual) PT INR Fibrinogen dRVVT Confirm Interp Factor V Activity POC ABG pH POC ABG pCO2 POC ABG pO2 Sodium 136 L Potassium Chloride Carbon Dioxide 18 L BUN 107 H Creatinine 2.6 H Glucose 187 H POC Glucose 230 H Lactic Acid Calcium 8.3 L Phosphorus Magnesium Direct Bilirubin ALT Alkaline Phosphatase Troponin T C-Reactive Protein Total Protein Albumin Triglycerides Cholesterol LDL Cholesterol Direct HDL Cholesterol Urine WBC (Auto) Urine Creatinine Urine Total Protein Vancomycin Trough Rheumatoid Factor Complement C4 Miscellaneous Test Crossmatch 09/11/16 09/11/16 09/11/16 05:55 12:02 17:32 WBC RBC Hgb Hct MCV MCH MCHC RDW Plt Count Lymph % (Auto) [place] % (Auto) Lymph # [place] # Seg Neutrophils % Seg Neuts % (Manual) Lymphocytes % (Manual) Monocytes % (Manual) Eosinophils % (Manual) Basophils % (Manual) Nucleated RBC % Seg Neutrophils # Seg Neutrophils # Man Lymphocytes # (Manual) Monocytes # (Manual) Eosinophils # (Manual) PT INR Fibrinogen dRVVT Confirm Interp Factor V Activity POC ABG pH POC ABG pCO2 33.8 L POC ABG pO2 Sodium Potassium Chloride Carbon Dioxide BUN Creatinine Glucose POC Glucose 191 H 239 H Lactic Acid Calcium Phosphorus Magnesium Direct Bilirubin ALT Alkaline Phosphatase Troponin T C-Reactive Protein Total Protein Albumin Triglycerides Cholesterol LDL Cholesterol Direct HDL Cholesterol Urine WBC (Auto) Urine Creatinine Urine Total Protein Vancomycin Trough Rheumatoid Factor Complement C4 Miscellaneous Test Crossmatch 09/11/16 09/12/16 09/12/16 23:52 05:09 05:32 WBC RBC Hgb Hct MCV MCH MCHC RDW Plt Count Lymph % (Auto) [place] % (Auto) Lymph # [place] # Seg Neutrophils % Seg Neuts % (Manual) Lymphocytes % (Manual) Monocytes % (Manual) Eosinophils % (Manual) Basophils % (Manual) Nucleated RBC % Seg Neutrophils # Seg Neutrophils # Man Lymphocytes # (Manual) Monocytes # (Manual) Eosinophils # (Manual) PT INR Fibrinogen dRVVT Confirm Interp Factor V Activity POC ABG pH POC ABG pCO2 34.6 L POC ABG pO2 Sodium Potassium Chloride Carbon Dioxide BUN Creatinine Glucose POC Glucose 265 H 184 H Lactic Acid Calcium Phosphorus Magnesium Direct Bilirubin ALT Alkaline Phosphatase Troponin T C-Reactive Protein Total Protein Albumin Triglycerides Cholesterol LDL Cholesterol Direct HDL Cholesterol Urine WBC (Auto) Urine Creatinine Urine Total Protein Vancomycin Trough Rheumatoid Factor Complement C4 Miscellaneous Test Crossmatch 09/12/16 09/12/16 09/12/16 06:45 06:45 07:22 WBC 31.7 H RBC 3.54 L Hgb 8.3 L Hct 25.9 L MCV 73 L MCH 23 L MCHC RDW 18.9 H Plt Count Lymph % (Auto) [place] % (Auto) Lymph # [place] # Seg Neutrophils % Seg Neuts % (Manual) 88.5 H Lymphocytes % (Manual) 4.5 L Monocytes % (Manual) Eosinophils % (Manual) Basophils % (Manual) Nucleated RBC % Seg Neutrophils # Seg Neutrophils # Man 28.1 H Lymphocytes # (Manual) Monocytes # (Manual) 1.0 H Eosinophils # (Manual) PT INR Fibrinogen dRVVT Confirm Interp Factor V Activity POC ABG pH POC ABG pCO2 POC ABG pO2 Sodium Potassium Chloride Carbon Dioxide 20 L BUN 115 H Creatinine 2.7 H Glucose 165 H POC Glucose Lactic Acid Calcium 8.0 L Phosphorus Magnesium Direct Bilirubin ALT Alkaline Phosphatase Troponin T C-Reactive Protein Total Protein Albumin Triglycerides 217 H Cholesterol LDL Cholesterol Direct HDL Cholesterol Urine WBC (Auto) Urine Creatinine Urine Total Protein Vancomycin Trough Rheumatoid Factor Complement C4 Miscellaneous Test Crossmatch 09/12/16 09/12/16 09/12/16 07:22 09:59 12:21 WBC RBC Hgb Hct MCV MCH MCHC RDW Plt Count Lymph % (Auto) [place] % (Auto) Lymph # [place] # Seg Neutrophils % Seg Neuts % (Manual) Lymphocytes % (Manual) Monocytes % (Manual) Eosinophils % (Manual) Basophils % (Manual) Nucleated RBC % Seg Neutrophils # Seg Neutrophils # Man Lymphocytes # (Manual) Monocytes # (Manual) Eosinophils # (Manual) PT INR Fibrinogen dRVVT Confirm Interp Positive H Factor V Activity POC ABG pH POC ABG pCO2 POC ABG pO2 Sodium Potassium Chloride Carbon Dioxide BUN Creatinine Glucose POC Glucose 224 H Lactic Acid Calcium Phosphorus Magnesium Direct Bilirubin ALT Alkaline Phosphatase Troponin T C-Reactive Protein 1.70 H Total Protein Albumin Triglycerides Cholesterol LDL Cholesterol Direct HDL Cholesterol Urine WBC (Auto) Urine Creatinine Urine Total Protein Vancomycin Trough Rheumatoid Factor Complement C4 Miscellaneous Test Crossmatch 09/12/16 09/12/16 09/13/16 16:51 23:28 04:00 WBC 45.0 H* RBC Hgb 9.4 L Hct MCV 75 L MCH 23 L MCHC RDW 19.0 H Plt Count 470 H Lymph % (Auto) [place] % (Auto) Lymph # [place] # Seg Neutrophils % Seg Neuts % (Manual) 89.0 H Lymphocytes % (Manual) 5.0 L Monocytes % (Manual) Eosinophils % (Manual) Basophils % (Manual) Nucleated RBC % Seg Neutrophils # Seg Neutrophils # Man 40.1 H Lymphocytes # (Manual) Monocytes # (Manual) Eosinophils # (Manual) PT INR Fibrinogen dRVVT Confirm Interp Factor V Activity POC ABG pH POC ABG pCO2 POC ABG pO2 Sodium Potassium Chloride Carbon Dioxide BUN Creatinine Glucose POC Glucose 169 H 150 H Lactic Acid Calcium Phosphorus Magnesium Direct Bilirubin ALT Alkaline Phosphatase Troponin T C-Reactive Protein Total Protein Albumin Triglycerides Cholesterol LDL Cholesterol Direct HDL Cholesterol Urine WBC (Auto) Urine Creatinine Urine Total Protein Vancomycin Trough Rheumatoid Factor Complement C4 Miscellaneous Test Crossmatch 09/13/16 09/13/16 09/13/16 04:00 11:26 17:31 WBC RBC Hgb Hct MCV MCH MCHC RDW Plt Count Lymph % (Auto) [place] % (Auto) Lymph # [place] # Seg Neutrophils % Seg Neuts % (Manual) Lymphocytes % (Manual) Monocytes % (Manual) Eosinophils % (Manual) Basophils % (Manual) Nucleated RBC % Seg Neutrophils # Seg Neutrophils # Man Lymphocytes # (Manual) Monocytes # (Manual) Eosinophils # (Manual) PT INR Fibrinogen dRVVT Confirm Interp Factor V Activity POC ABG pH POC ABG pCO2 POC ABG pO2 Sodium Potassium Chloride Carbon Dioxide 20 L BUN 116 H Creatinine 3.0 H Glucose 172 H POC Glucose 140 H 183 H Lactic Acid Calcium Phosphorus Magnesium Direct Bilirubin ALT Alkaline Phosphatase Troponin T C-Reactive Protein Total Protein 6.2 L Albumin 2.9 L Triglycerides Cholesterol LDL Cholesterol Direct HDL Cholesterol Urine WBC (Auto) Urine Creatinine Urine Total Protein Vancomycin Trough Rheumatoid Factor Complement C4 Miscellaneous Test Crossmatch 09/13/16 09/14/16 09/14/16 23:23 04:06 04:07 WBC 29.4 H RBC Hgb 8.9 L Hct 27.3 L MCV 75 L MCH 24 L MCHC RDW 19.1 H Plt Count Lymph % (Auto) [place] % (Auto) Lymph # [place] # Seg Neutrophils % Seg Neuts % (Manual) 84.0 H Lymphocytes % (Manual) 6.0 L Monocytes % (Manual) 9.0 H Eosinophils % (Manual) Basophils % (Manual) Nucleated RBC % Seg Neutrophils # Seg Neutrophils # Man 24.7 H Lymphocytes # (Manual) Monocytes # (Manual) 2.6 H Eosinophils # (Manual) PT INR Fibrinogen dRVVT Confirm Interp Factor V Activity POC ABG pH 7.342 L POC ABG pCO2 POC ABG pO2 116 H Sodium Potassium Chloride Carbon Dioxide BUN Creatinine Glucose POC Glucose 154 H Lactic Acid Calcium Phosphorus Magnesium Direct Bilirubin ALT Alkaline Phosphatase Troponin T C-Reactive Protein Total Protein Albumin Triglycerides Cholesterol LDL Cholesterol Direct HDL Cholesterol Urine WBC (Auto) Urine Creatinine Urine Total Protein Vancomycin Trough Rheumatoid Factor Complement C4 Miscellaneous Test Crossmatch 09/14/16 09/14/16 09/14/16 04:07 05:29 12:19 WBC RBC Hgb Hct MCV MCH MCHC RDW Plt Count Lymph % (Auto) [place] % (Auto) Lymph # [place] # Seg Neutrophils % Seg Neuts % (Manual) Lymphocytes % (Manual) Monocytes % (Manual) Eosinophils % (Manual) Basophils % (Manual) Nucleated RBC % Seg Neutrophils # Seg Neutrophils # Man Lymphocytes # (Manual) Monocytes # (Manual) Eosinophils # (Manual) PT INR Fibrinogen dRVVT Confirm Interp Factor V Activity POC ABG pH POC ABG pCO2 POC ABG pO2 Sodium 136 L Potassium Chloride Carbon Dioxide 18 L BUN 121 H Creatinine 2.8 H Glucose 214 H POC Glucose 239 H 181 H Lactic Acid Calcium Phosphorus Magnesium Direct Bilirubin ALT Alkaline Phosphatase Troponin T C-Reactive Protein Total Protein Albumin Triglycerides Cholesterol LDL Cholesterol Direct HDL Cholesterol Urine WBC (Auto) Urine Creatinine Urine Total Protein Vancomycin Trough Rheumatoid Factor Complement C4 Miscellaneous Test Crossmatch 09/14/16 09/14/16 09/15/16 18:12 23:37 05:00 WBC 26.1 H RBC 3.05 L Hgb 7.2 L Hct 22.9 L MCV 75 L MCH 24 L MCHC RDW 19.0 H Plt Count Lymph % (Auto) [place] % (Auto) Lymph # [place] # Seg Neutrophils % Seg Neuts % (Manual) Lymphocytes % (Manual) Monocytes % (Manual) Eosinophils % (Manual) Basophils % (Manual) Nucleated RBC % Seg Neutrophils # Seg Neutrophils # Man Lymphocytes # (Manual) Monocytes # (Manual) Eosinophils # (Manual) PT INR Fibrinogen dRVVT Confirm Interp Factor V Activity POC ABG pH POC ABG pCO2 POC ABG pO2 Sodium Potassium Chloride Carbon Dioxide BUN Creatinine Glucose POC Glucose 266 H 154 H Lactic Acid Calcium Phosphorus Magnesium Direct Bilirubin ALT Alkaline Phosphatase Troponin T C-Reactive Protein Total Protein Albumin Triglycerides Cholesterol LDL Cholesterol Direct HDL Cholesterol Urine WBC (Auto) Urine Creatinine Urine Total Protein Vancomycin Trough Rheumatoid Factor Complement C4 Miscellaneous Test Crossmatch 09/15/16 09/15/16 09/15/16 05:00 05:17 12:45 WBC RBC Hgb Hct MCV MCH MCHC RDW Plt Count Lymph % (Auto) [place] % (Auto) Lymph # [place] # Seg Neutrophils % Seg Neuts % (Manual) Lymphocytes % (Manual) Monocytes % (Manual) Eosinophils % (Manual) Basophils % (Manual) Nucleated RBC % Seg Neutrophils # Seg Neutrophils # Man Lymphocytes # (Manual) Monocytes # (Manual) Eosinophils # (Manual) PT INR Fibrinogen dRVVT Confirm Interp Factor V Activity POC ABG pH POC ABG pCO2 POC ABG pO2 Sodium Potassium 5.2 H Chloride Carbon Dioxide 18 L BUN 139 H Creatinine 3.7 H Glucose 227 H POC Glucose 226 H 244 H Lactic Acid Calcium 8.3 L Phosphorus Magnesium Direct Bilirubin ALT Alkaline Phosphatase Troponin T C-Reactive Protein Total Protein Albumin Triglycerides Cholesterol LDL Cholesterol Direct HDL Cholesterol Urine WBC (Auto) Urine Creatinine Urine Total Protein Vancomycin Trough Rheumatoid Factor Complement C4 Miscellaneous Test Crossmatch 09/15/16 09/15/16 09/15/16 14:32 17:33 23:35 WBC RBC Hgb Hct MCV MCH MCHC RDW Plt Count Lymph % (Auto) [place] % (Auto) Lymph # [place] # Seg Neutrophils % Seg Neuts % (Manual) Lymphocytes % (Manual) Monocytes % (Manual) Eosinophils % (Manual) Basophils % (Manual) Nucleated RBC % Seg Neutrophils # Seg Neutrophils # Man Lymphocytes # (Manual) Monocytes # (Manual) Eosinophils # (Manual) PT INR Fibrinogen dRVVT Confirm Interp Factor V Activity POC ABG pH POC ABG pCO2 27.7 L POC ABG pO2 120 H Sodium Potassium Chloride Carbon Dioxide BUN Creatinine Glucose POC Glucose 232 H 167 H Lactic Acid Calcium Phosphorus Magnesium Direct Bilirubin ALT Alkaline Phosphatase Troponin T C-Reactive Protein Total Protein Albumin Triglycerides Cholesterol LDL Cholesterol Direct HDL Cholesterol Urine WBC (Auto) Urine Creatinine Urine Total Protein Vancomycin Trough Rheumatoid Factor Complement C4 Miscellaneous Test Crossmatch 09/16/16 09/16/16 09/16/16 03:58 10:27 10:27 WBC 19.0 H RBC 2.77 L Hgb 6.5 L Hct 20.9 L MCV 76 L MCH 23 L MCHC RDW 19.3 H Plt Count Lymph % (Auto) 11.0 L [place] % (Auto) Lymph # [place] # 1.1 H Seg Neutrophils % 82.5 H Seg Neuts % (Manual) Lymphocytes % (Manual) Monocytes % (Manual) Eosinophils % (Manual) Basophils % (Manual) Nucleated RBC % Seg Neutrophils # 15.7 H Seg Neutrophils # Man Lymphocytes # (Manual) Monocytes # (Manual) Eosinophils # (Manual) PT INR Fibrinogen dRVVT Confirm Interp Factor V Activity POC ABG pH POC ABG pCO2 POC ABG pO2 Sodium Potassium Chloride 109.3 H Carbon Dioxide 18 L BUN 139 H Creatinine 4.1 H Glucose 144 H POC Glucose 146 H Lactic Acid Calcium 8.1 L Phosphorus Magnesium Direct Bilirubin ALT Alkaline Phosphatase Troponin T C-Reactive Protein Total Protein Albumin Triglycerides Cholesterol LDL Cholesterol Direct HDL Cholesterol Urine WBC (Auto) Urine Creatinine Urine Total Protein Vancomycin Trough Rheumatoid Factor Complement C4 Miscellaneous Test Crossmatch 09/16/16 09/16/16 09/16/16 12:04 12:10 13:55 WBC RBC Hgb Hct MCV MCH MCHC RDW Plt Count Lymph % (Auto) [place] % (Auto) Lymph # [place] # Seg Neutrophils % Seg Neuts % (Manual) Lymphocytes % (Manual) Monocytes % (Manual) Eosinophils % (Manual) Basophils % (Manual) Nucleated RBC % Seg Neutrophils # Seg Neutrophils # Man Lymphocytes # (Manual) Monocytes # (Manual) Eosinophils # (Manual) PT INR Fibrinogen dRVVT Confirm Interp Factor V Activity POC ABG pH POC ABG pCO2 32.9 L POC ABG pO2 Sodium Potassium Chloride Carbon Dioxide BUN Creatinine Glucose POC Glucose 185 H Lactic Acid Calcium Phosphorus Magnesium Direct Bilirubin ALT Alkaline Phosphatase Troponin T C-Reactive Protein Total Protein Albumin Triglycerides Cholesterol LDL Cholesterol Direct HDL Cholesterol Urine WBC (Auto) Urine Creatinine Urine Total Protein Vancomycin Trough Rheumatoid Factor Complement C4 Miscellaneous Test Crossmatch See Detail 09/16/16 09/16/16 09/16/16 17:55 19:19 23:48 WBC RBC Hgb Hct MCV MCH MCHC RDW Plt Count Lymph % (Auto) [place] % (Auto) Lymph # [place] # Seg Neutrophils % Seg Neuts % (Manual) Lymphocytes % (Manual) Monocytes % (Manual) Eosinophils % (Manual) Basophils % (Manual) Nucleated RBC % Seg Neutrophils # Seg Neutrophils # Man Lymphocytes # (Manual) Monocytes # (Manual) Eosinophils # (Manual) PT INR Fibrinogen dRVVT Confirm Interp Factor V Activity POC ABG pH POC ABG pCO2 POC ABG pO2 Sodium Potassium Chloride Carbon Dioxide BUN Creatinine Glucose POC Glucose 222 H 107 H Lactic Acid Calcium Phosphorus Magnesium Direct Bilirubin ALT Alkaline Phosphatase Troponin T C-Reactive Protein Total Protein Albumin Triglycerides Cholesterol LDL Cholesterol Direct HDL Cholesterol Urine WBC (Auto) Urine Creatinine 47.4 H Urine Total Protein 16 H Vancomycin Trough Rheumatoid Factor Complement C4 Miscellaneous Test Crossmatch 09/17/16 09/17/16 09/17/16 03:45 03:45 04:55 WBC 19.6 H RBC 3.41 L Hgb 8.5 L Hct 26.7 L MCV 78 L MCH 25 L MCHC RDW 19.9 H Plt Count Lymph % (Auto) 9.3 L [place] % (Auto) Lymph # [place] # 1.2 H Seg Neutrophils % 83.9 H Seg Neuts % (Manual) Lymphocytes % (Manual) Monocytes % (Manual) Eosinophils % (Manual) Basophils % (Manual) Nucleated RBC % Seg Neutrophils # 16.4 H Seg Neutrophils # Man Lymphocytes # (Manual) Monocytes # (Manual) Eosinophils # (Manual) PT INR Fibrinogen dRVVT Confirm Interp Factor V Activity POC ABG pH POC ABG pCO2 POC ABG pO2 Sodium 146 H Potassium 5.1 H Chloride 110.9 H Carbon Dioxide 16 L BUN 146 H Creatinine 4.0 H Glucose 108 H POC Glucose 133 H Lactic Acid Calcium Phosphorus Magnesium 3.00 H Direct Bilirubin ALT Alkaline Phosphatase Troponin T C-Reactive Protein Total Protein Albumin Triglycerides Cholesterol LDL Cholesterol Direct HDL Cholesterol Urine WBC (Auto) Urine Creatinine Urine Total Protein Vancomycin Trough Rheumatoid Factor Complement C4 Miscellaneous Test Crossmatch 09/17/16 09/17/16 09/17/16 11:15 17:33 23:47 WBC RBC Hgb Hct MCV MCH MCHC RDW Plt Count Lymph % (Auto) [place] % (Auto) Lymph # [place] # Seg Neutrophils % Seg Neuts % (Manual) Lymphocytes % (Manual) Monocytes % (Manual) Eosinophils % (Manual) Basophils % (Manual) Nucleated RBC % Seg Neutrophils # Seg Neutrophils # Man Lymphocytes # (Manual) Monocytes # (Manual) Eosinophils # (Manual) PT INR Fibrinogen dRVVT Confirm Interp Factor V Activity POC ABG pH POC ABG pCO2 POC ABG pO2 Sodium Potassium Chloride Carbon Dioxide BUN Creatinine Glucose POC Glucose 176 H 246 H 148 H Lactic Acid Calcium Phosphorus Magnesium Direct Bilirubin ALT Alkaline Phosphatase Troponin T C-Reactive Protein Total Protein Albumin Triglycerides Cholesterol LDL Cholesterol Direct HDL Cholesterol Urine WBC (Auto) Urine Creatinine Urine Total Protein Vancomycin Trough Rheumatoid Factor Complement C4 Miscellaneous Test Crossmatch 09/18/16 09/18/16 09/18/16 05:33 08:31 08:31 WBC 18.0 H RBC 3.17 L Hgb 9.0 L Hct 25.7 L MCV MCH MCHC 35 H RDW 20.4 H Plt Count Lymph % (Auto) [place] % (Auto) Lymph # [place] # Seg Neutrophils % Seg Neuts % (Manual) Lymphocytes % (Manual) Monocytes % (Manual) Eosinophils % (Manual) Basophils % (Manual) Nucleated RBC % Seg Neutrophils # Seg Neutrophils # Man Lymphocytes # (Manual) Monocytes # (Manual) Eosinophils # (Manual) PT INR Fibrinogen dRVVT Confirm Interp Factor V Activity POC ABG pH POC ABG pCO2 POC ABG pO2 Sodium Potassium Chloride Carbon Dioxide 15 L BUN 124 H Creatinine 3.8 H Glucose POC Glucose 120 H Lactic Acid Calcium 8.1 L Phosphorus Magnesium Direct Bilirubin ALT Alkaline Phosphatase Troponin T C-Reactive Protein Total Protein Albumin Triglycerides Cholesterol LDL Cholesterol Direct HDL Cholesterol Urine WBC (Auto) Urine Creatinine Urine Total Protein Vancomycin Trough Rheumatoid Factor Complement C4 Miscellaneous Test Crossmatch 09/18/16 09/18/16 09/18/16 12:03 15:34 17:50 WBC RBC Hgb Hct MCV MCH MCHC RDW Plt Count Lymph % (Auto) [place] % (Auto) Lymph # [place] # Seg Neutrophils % Seg Neuts % (Manual) Lymphocytes % (Manual) Monocytes % (Manual) Eosinophils % (Manual) Basophils % (Manual) Nucleated RBC % Seg Neutrophils # Seg Neutrophils # Man Lymphocytes # (Manual) Monocytes # (Manual) Eosinophils # (Manual) PT INR Fibrinogen dRVVT Confirm Interp Factor V Activity POC ABG pH POC ABG pCO2 25.7 L POC ABG pO2 66 L Sodium Potassium Chloride Carbon Dioxide BUN Creatinine Glucose POC Glucose 156 H 220 H Lactic Acid Calcium Phosphorus Magnesium Direct Bilirubin ALT Alkaline Phosphatase Troponin T C-Reactive Protein Total Protein Albumin Triglycerides Cholesterol LDL Cholesterol Direct HDL Cholesterol Urine WBC (Auto) Urine Creatinine Urine Total Protein Vancomycin Trough Rheumatoid Factor Complement C4 Miscellaneous Test Crossmatch 09/19/16 09/19/16 09/19/16 06:21 09:50 09:50 WBC 17.1 H RBC 3.49 L Hgb 9.0 L Hct 28.1 L MCV MCH 26 L MCHC RDW 20.8 H Plt Count Lymph % (Auto) 11.5 L [place] % (Auto) 7.5 H Lymph # [place] # 1.3 H Seg Neutrophils % 79.8 H Seg Neuts % (Manual) Lymphocytes % (Manual) Monocytes % (Manual) Eosinophils % (Manual) Basophils % (Manual) Nucleated RBC % Seg Neutrophils # 13.7 H Seg Neutrophils # Man Lymphocytes # (Manual) Monocytes # (Manual) Eosinophils # (Manual) PT INR Fibrinogen dRVVT Confirm Interp Factor V Activity POC ABG pH POC ABG pCO2 POC ABG pO2 Sodium Potassium Chloride 108.6 H Carbon Dioxide 15 L BUN 125 H Creatinine 4.1 H Glucose 124 H POC Glucose 119 H Lactic Acid Calcium Phosphorus Magnesium Direct Bilirubin ALT Alkaline Phosphatase Troponin T C-Reactive Protein Total Protein Albumin Triglycerides Cholesterol LDL Cholesterol Direct HDL Cholesterol Urine WBC (Auto) Urine Creatinine Urine Total Protein Vancomycin Trough Rheumatoid Factor Complement C4 Miscellaneous Test Crossmatch 09/19/16 09/19/16 09/19/16 11:25 17:53 23:36 WBC RBC Hgb Hct MCV MCH MCHC RDW Plt Count Lymph % (Auto) [place] % (Auto) Lymph # [place] # Seg Neutrophils % Seg Neuts % (Manual) Lymphocytes % (Manual) Monocytes % (Manual) Eosinophils % (Manual) Basophils % (Manual) Nucleated RBC % Seg Neutrophils # Seg Neutrophils # Man Lymphocytes # (Manual) Monocytes # (Manual) Eosinophils # (Manual) PT INR Fibrinogen dRVVT Confirm Interp Factor V Activity POC ABG pH POC ABG pCO2 POC ABG pO2 Sodium Potassium Chloride Carbon Dioxide BUN Creatinine Glucose POC Glucose 160 H 245 H 121 H Lactic Acid Calcium Phosphorus Magnesium Direct Bilirubin ALT Alkaline Phosphatase Troponin T C-Reactive Protein Total Protein Albumin Triglycerides Cholesterol LDL Cholesterol Direct HDL Cholesterol Urine WBC (Auto) Urine Creatinine Urine Total Protein Vancomycin Trough Rheumatoid Factor Complement C4 Miscellaneous Test Crossmatch 09/20/16 09/20/16 09/20/16 04:10 04:10 04:10 WBC 17.0 H RBC 3.21 L Hgb 8.2 L Hct 25.5 L MCV MCH 26 L MCHC RDW 20.9 H Plt Count Lymph % (Auto) [place] % (Auto) Lymph # [place] # Seg Neutrophils % Seg Neuts % (Manual) Lymphocytes % (Manual) Monocytes % (Manual) Eosinophils % (Manual) Basophils % (Manual) Nucleated RBC % Seg Neutrophils # Seg Neutrophils # Man Lymphocytes # (Manual) Monocytes # (Manual) Eosinophils # (Manual) PT INR Fibrinogen dRVVT Confirm Interp Factor V Activity POC ABG pH POC ABG pCO2 POC ABG pO2 Sodium Potassium Chloride 111.0 H Carbon Dioxide 16 L BUN 129 H Creatinine 3.7 H Glucose 115 H POC Glucose Lactic Acid Calcium 8.2 L Phosphorus Magnesium Direct Bilirubin ALT Alkaline Phosphatase Troponin T C-Reactive Protein Total Protein Albumin Triglycerides 243 H Cholesterol LDL Cholesterol Direct HDL Cholesterol Urine WBC (Auto) Urine Creatinine Urine Total Protein Vancomycin Trough Rheumatoid Factor Complement C4 Miscellaneous Test Crossmatch 09/20/16 09/20/16 09/20/16 05:40 11:52 16:50 WBC RBC Hgb Hct MCV MCH MCHC RDW Plt Count Lymph % (Auto) [place] % (Auto) Lymph # [place] # Seg Neutrophils % Seg Neuts % (Manual) Lymphocytes % (Manual) Monocytes % (Manual) Eosinophils % (Manual) Basophils % (Manual) Nucleated RBC % Seg Neutrophils # Seg Neutrophils # Man Lymphocytes # (Manual) Monocytes # (Manual) Eosinophils # (Manual) PT INR Fibrinogen dRVVT Confirm Interp Factor V Activity POC ABG pH POC ABG pCO2 POC ABG pO2 Sodium Potassium Chloride Carbon Dioxide BUN Creatinine Glucose POC Glucose 131 H 183 H 236 H Lactic Acid Calcium Phosphorus Magnesium Direct Bilirubin ALT Alkaline Phosphatase Troponin T C-Reactive Protein Total Protein Albumin Triglycerides Cholesterol LDL Cholesterol Direct HDL Cholesterol Urine WBC (Auto) Urine Creatinine Urine Total Protein Vancomycin Trough Rheumatoid Factor Complement C4 Miscellaneous Test Crossmatch 09/20/16 09/21/16 09/21/16 23:51 03:30 04:44 WBC RBC Hgb Hct MCV MCH MCHC RDW Plt Count Lymph % (Auto) [place] % (Auto) Lymph # [place] # Seg Neutrophils % Seg Neuts % (Manual) Lymphocytes % (Manual) Monocytes % (Manual) Eosinophils % (Manual) Basophils % (Manual) Nucleated RBC % Seg Neutrophils # Seg Neutrophils # Man Lymphocytes # (Manual) Monocytes # (Manual) Eosinophils # (Manual) PT INR Fibrinogen dRVVT Confirm Interp Factor V Activity POC ABG pH POC ABG pCO2 POC ABG pO2 Sodium Potassium Chloride Carbon Dioxide BUN Creatinine Glucose POC Glucose 114 H 141 H Lactic Acid Calcium Phosphorus Magnesium 2.70 H Direct Bilirubin ALT Alkaline Phosphatase Troponin T C-Reactive Protein Total Protein Albumin Triglycerides Cholesterol LDL Cholesterol Direct HDL Cholesterol Urine WBC (Auto) Urine Creatinine Urine Total Protein Vancomycin Trough Rheumatoid Factor Complement C4 Miscellaneous Test Crossmatch 09/21/16 09/21/16 09/21/16 07:45 07:45 10:01 WBC 13.8 H RBC 2.94 L Hgb 7.5 L Hct 23.5 L MCV MCH 26 L MCHC RDW 21.2 H Plt Count Lymph % (Auto) 6.9 L [place] % (Auto) 9.4 H Lymph # 0.9 L [place] # 1.3 H Seg Neutrophils % 83.2 H Seg Neuts % (Manual) Lymphocytes % (Manual) Monocytes % (Manual) Eosinophils % (Manual) Basophils % (Manual) Nucleated RBC % Seg Neutrophils # 11.5 H Seg Neutrophils # Man Lymphocytes # (Manual) Monocytes # (Manual) Eosinophils # (Manual) PT INR Fibrinogen dRVVT Confirm Interp Factor V Activity POC ABG pH 7.308 L POC ABG pCO2 31.9 L POC ABG pO2 148 H Sodium 147 H Potassium Chloride 114.2 H Carbon Dioxide 15 L BUN 120 H Creatinine 3.9 H Glucose 156 H POC Glucose Lactic Acid Calcium 8.2 L Phosphorus Magnesium Direct Bilirubin ALT Alkaline Phosphatase Troponin T C-Reactive Protein Total Protein Albumin Triglycerides Cholesterol LDL Cholesterol Direct HDL Cholesterol Urine WBC (Auto) Urine Creatinine Urine Total Protein Vancomycin Trough Rheumatoid Factor Complement C4 Miscellaneous Test Crossmatch 09/21/16 09/21/16 09/21/16 12:00 12:03 13:00 WBC RBC Hgb Hct MCV MCH MCHC RDW Plt Count Lymph % (Auto) [place] % (Auto) Lymph # [place] # Seg Neutrophils % Seg Neuts % (Manual) Lymphocytes % (Manual) Monocytes % (Manual) Eosinophils % (Manual) Basophils % (Manual) Nucleated RBC % Seg Neutrophils # Seg Neutrophils # Man Lymphocytes # (Manual) Monocytes # (Manual) Eosinophils # (Manual) PT INR Fibrinogen dRVVT Confirm Interp Factor V Activity POC ABG pH POC ABG pCO2 POC ABG pO2 Sodium Potassium Chloride Carbon Dioxide BUN Creatinine Glucose POC Glucose 163 H Lactic Acid Calcium Phosphorus Magnesium Direct Bilirubin ALT Alkaline Phosphatase Troponin T C-Reactive Protein Total Protein Albumin Triglycerides Cholesterol LDL Cholesterol Direct HDL Cholesterol Urine WBC (Auto) Urine Creatinine 54.8 H Urine Total Protein Vancomycin Trough 2.3 L Rheumatoid Factor Complement C4 Miscellaneous Test Crossmatch 09/21/16 09/21/16 09/22/16 16:51 23:17 06:27 WBC RBC Hgb Hct MCV MCH MCHC RDW Plt Count Lymph % (Auto) [place] % (Auto) Lymph # [place] # Seg Neutrophils % Seg Neuts % (Manual) Lymphocytes % (Manual) Monocytes % (Manual) Eosinophils % (Manual) Basophils % (Manual) Nucleated RBC % Seg Neutrophils # Seg Neutrophils # Man Lymphocytes # (Manual) Monocytes # (Manual) Eosinophils # (Manual) PT INR Fibrinogen dRVVT Confirm Interp Factor V Activity POC ABG pH POC ABG pCO2 POC ABG pO2 Sodium Potassium Chloride Carbon Dioxide BUN Creatinine Glucose POC Glucose 206 H 114 H 115 H Lactic Acid Calcium Phosphorus Magnesium Direct Bilirubin ALT Alkaline Phosphatase Troponin T C-Reactive Protein Total Protein Albumin Triglycerides Cholesterol LDL Cholesterol Direct HDL Cholesterol Urine WBC (Auto) Urine Creatinine Urine Total Protein Vancomycin Trough Rheumatoid Factor Complement C4 Miscellaneous Test Crossmatch 09/22/16 09/22/16 09/22/16 07:50 07:50 12:00 WBC 17.8 H RBC 3.04 L Hgb 8.0 L Hct 24.7 L MCV MCH 26 L MCHC RDW 21.6 H Plt Count Lymph % (Auto) [place] % (Auto) Lymph # [place] # Seg Neutrophils % Seg Neuts % (Manual) Lymphocytes % (Manual) Monocytes % (Manual) Eosinophils % (Manual) Basophils % (Manual) Nucleated RBC % Seg Neutrophils # Seg Neutrophils # Man Lymphocytes # (Manual) Monocytes # (Manual) Eosinophils # (Manual) PT INR Fibrinogen dRVVT Confirm Interp Factor V Activity POC ABG pH POC ABG pCO2 POC ABG pO2 Sodium 150 H Potassium Chloride 118.2 H Carbon Dioxide 14 L BUN 111 H Creatinine 3.7 H Glucose 157 H POC Glucose 183 H Lactic Acid Calcium Phosphorus Magnesium Direct Bilirubin ALT Alkaline Phosphatase Troponin T C-Reactive Protein Total Protein Albumin Triglycerides Cholesterol LDL Cholesterol Direct HDL Cholesterol Urine WBC (Auto) Urine Creatinine Urine Total Protein Vancomycin Trough Rheumatoid Factor Complement C4 Miscellaneous Test Crossmatch 09/22/16 09/22/16 09/23/16 17:29 23:10 05:00 WBC 19.2 H RBC 3.13 L Hgb 8.0 L Hct 25.2 L MCV MCH 26 L MCHC RDW 22.1 H Plt Count Lymph % (Auto) [place] % (Auto) Lymph # [place] # Seg Neutrophils % Seg Neuts % (Manual) 92.0 H Lymphocytes % (Manual) 3.0 L Monocytes % (Manual) Eosinophils % (Manual) Basophils % (Manual) Nucleated RBC % Seg Neutrophils # Seg Neutrophils # Man 17.7 H Lymphocytes # (Manual) 0.6 L Monocytes # (Manual) Eosinophils # (Manual) PT INR Fibrinogen dRVVT Confirm Interp Factor V Activity POC ABG pH POC ABG pCO2 POC ABG pO2 Sodium Potassium Chloride Carbon Dioxide BUN Creatinine Glucose POC Glucose 197 H 169 H Lactic Acid Calcium Phosphorus Magnesium Direct Bilirubin ALT Alkaline Phosphatase Troponin T C-Reactive Protein Total Protein Albumin Triglycerides Cholesterol LDL Cholesterol Direct HDL Cholesterol Urine WBC (Auto) Urine Creatinine Urine Total Protein Vancomycin Trough Rheumatoid Factor Complement C4 Miscellaneous Test Crossmatch 09/23/16 09/23/16 09/23/16 05:00 05:00 05:10 WBC RBC Hgb Hct MCV MCH MCHC RDW Plt Count Lymph % (Auto) [place] % (Auto) Lymph # [place] # Seg Neutrophils % Seg Neuts % (Manual) Lymphocytes % (Manual) Monocytes % (Manual) Eosinophils % (Manual) Basophils % (Manual) Nucleated RBC % Seg Neutrophils # Seg Neutrophils # Man Lymphocytes # (Manual) Monocytes # (Manual) Eosinophils # (Manual) PT INR Fibrinogen dRVVT Confirm Interp Factor V Activity POC ABG pH POC ABG pCO2 POC ABG pO2 Sodium 147 H Potassium 3.2 L Chloride 115.7 H Carbon Dioxide 13 L BUN 111 H Creatinine 3.8 H Glucose 194 H POC Glucose 188 H Lactic Acid Calcium 7.3 L D Phosphorus Magnesium Direct Bilirubin ALT Alkaline Phosphatase Troponin T C-Reactive Protein 3.20 H Total Protein Albumin Triglycerides Cholesterol LDL Cholesterol Direct HDL Cholesterol Urine WBC (Auto) Urine Creatinine Urine Total Protein Vancomycin Trough Rheumatoid Factor Complement C4 Miscellaneous Test Crossmatch 09/23/16 09/23/16 09/23/16 11:37 12:29 18:01 WBC RBC Hgb Hct MCV MCH MCHC RDW Plt Count Lymph % (Auto) [place] % (Auto) Lymph # [place] # Seg Neutrophils % Seg Neuts % (Manual) Lymphocytes % (Manual) Monocytes % (Manual) Eosinophils % (Manual) Basophils % (Manual) Nucleated RBC % Seg Neutrophils # Seg Neutrophils # Man Lymphocytes # (Manual) Monocytes # (Manual) Eosinophils # (Manual) PT INR Fibrinogen dRVVT Confirm Interp Factor V Activity POC ABG pH POC ABG pCO2 18.9 L POC ABG pO2 143 H Sodium Potassium Chloride Carbon Dioxide BUN Creatinine Glucose POC Glucose 153 H 108 H Lactic Acid Calcium Phosphorus Magnesium Direct Bilirubin ALT Alkaline Phosphatase Troponin T C-Reactive Protein Total Protein Albumin Triglycerides Cholesterol LDL Cholesterol Direct HDL Cholesterol Urine WBC (Auto) Urine Creatinine Urine Total Protein Vancomycin Trough Rheumatoid Factor Complement C4 Miscellaneous Test Crossmatch 09/23/16 09/23/16 09/24/16 21:19 23:43 05:16 WBC RBC Hgb Hct MCV MCH MCHC RDW Plt Count Lymph % (Auto) [place] % (Auto) Lymph # [place] # Seg Neutrophils % Seg Neuts % (Manual) Lymphocytes % (Manual) Monocytes % (Manual) Eosinophils % (Manual) Basophils % (Manual) Nucleated RBC % Seg Neutrophils # Seg Neutrophils # Man Lymphocytes # (Manual) Monocytes # (Manual) Eosinophils # (Manual) PT INR Fibrinogen dRVVT Confirm Interp Factor V Activity POC ABG pH POC ABG pCO2 17.3 L POC ABG pO2 112 H Sodium Potassium Chloride Carbon Dioxide BUN Creatinine Glucose POC Glucose 143 H 164 H Lactic Acid Calcium Phosphorus Magnesium Direct Bilirubin ALT Alkaline Phosphatase Troponin T C-Reactive Protein Total Protein Albumin Triglycerides Cholesterol LDL Cholesterol Direct HDL Cholesterol Urine WBC (Auto) Urine Creatinine Urine Total Protein Vancomycin Trough Rheumatoid Factor Complement C4 Miscellaneous Test Crossmatch 09/24/16 09/24/16 09/24/16 05:21 11:58 17:06 WBC RBC Hgb Hct MCV MCH MCHC RDW Plt Count Lymph % (Auto) [place] % (Auto) Lymph # [place] # Seg Neutrophils % Seg Neuts % (Manual) Lymphocytes % (Manual) Monocytes % (Manual) Eosinophils % (Manual) Basophils % (Manual) Nucleated RBC % Seg Neutrophils # Seg Neutrophils # Man Lymphocytes # (Manual) Monocytes # (Manual) Eosinophils # (Manual) PT INR Fibrinogen dRVVT Confirm Interp Factor V Activity POC ABG pH POC ABG pCO2 POC ABG pO2 Sodium Potassium Chloride Carbon Dioxide 10 L BUN 103 H Creatinine 4.3 H Glucose 163 H POC Glucose 173 H 167 H Lactic Acid Calcium 6.5 L Phosphorus Magnesium Direct Bilirubin ALT Alkaline Phosphatase Troponin T C-Reactive Protein Total Protein Albumin Triglycerides Cholesterol LDL Cholesterol Direct HDL Cholesterol Urine WBC (Auto) Urine Creatinine Urine Total Protein Vancomycin Trough Rheumatoid Factor Complement C4 Miscellaneous Test Crossmatch 09/24/16 09/24/16 09/24/16 20:15 21:02 23:48 WBC RBC Hgb Hct MCV MCH MCHC RDW Plt Count Lymph % (Auto) [place] % (Auto) Lymph # [place] # Seg Neutrophils % Seg Neuts % (Manual) Lymphocytes % (Manual) Monocytes % (Manual) Eosinophils % (Manual) Basophils % (Manual) Nucleated RBC % Seg Neutrophils # Seg Neutrophils # Man Lymphocytes # (Manual) Monocytes # (Manual) Eosinophils # (Manual) PT INR Fibrinogen dRVVT Confirm Interp Factor V Activity POC ABG pH 7.288 L POC ABG pCO2 30.2 L 21.5 L POC ABG pO2 32 L 39 L Sodium Potassium Chloride Carbon Dioxide BUN Creatinine Glucose POC Glucose 109 H Lactic Acid Calcium Phosphorus Magnesium Direct Bilirubin ALT Alkaline Phosphatase Troponin T C-Reactive Protein Total Protein Albumin Triglycerides Cholesterol LDL Cholesterol Direct HDL Cholesterol Urine WBC (Auto) Urine Creatinine Urine Total Protein Vancomycin Trough Rheumatoid Factor Complement C4 Miscellaneous Test Crossmatch 09/25/16 09/25/16 09/25/16 04:20 04:20 04:20 WBC RBC 2.58 L Hgb 7.0 L Hct 21.0 L MCV MCH 27 L MCHC RDW 23.8 H Plt Count Lymph % (Auto) [place] % (Auto) Lymph # [place] # Seg Neutrophils % Seg Neuts % (Manual) Lymphocytes % (Manual) 12.0 L Monocytes % (Manual) Eosinophils % (Manual) 7.0 H Basophils % (Manual) 2.0 H Nucleated RBC % Seg Neutrophils # Seg Neutrophils # Man Lymphocytes # (Manual) 0.9 L Monocytes # (Manual) Eosinophils # (Manual) 0.5 H PT INR Fibrinogen dRVVT Confirm Interp Factor V Activity POC ABG pH POC ABG pCO2 POC ABG pO2 Sodium Potassium Chloride Carbon Dioxide 15 L BUN 72 H Creatinine 3.8 H Glucose POC Glucose Lactic Acid Calcium 6.0 L Phosphorus 4.60 H Magnesium 1.60 L Direct Bilirubin ALT Alkaline Phosphatase Troponin T C-Reactive Protein Total Protein Albumin Triglycerides Cholesterol LDL Cholesterol Direct HDL Cholesterol Urine WBC (Auto) Urine Creatinine Urine Total Protein Vancomycin Trough Rheumatoid Factor Complement C4 Miscellaneous Test Crossmatch 0809/25/16 09/25/16 04:57 08:02 10:30 WBC RBC Hgb Hct MCV MCH MCHC RDW Plt Count Lymph % (Auto) [place] % (Auto) Lymph # [place] # Seg Neutrophils % Seg Neuts % (Manual) Lymphocytes % (Manual) Monocytes % (Manual) Eosinophils % (Manual) Basophils % (Manual) Nucleated RBC % Seg Neutrophils # Seg Neutrophils # Man Lymphocytes # (Manual) Monocytes # (Manual) Eosinophils # (Manual) PT INR Fibrinogen dRVVT Confirm Interp Factor V Activity POC ABG pH POC ABG pCO2 24.7 L POC ABG pO2 152 H Sodium Potassium Chloride Carbon Dioxide BUN Creatinine Glucose POC Glucose 113 H Lactic Acid Calcium Phosphorus Magnesium Direct Bilirubin ALT Alkaline Phosphatase Troponin T C-Reactive Protein Total Protein Albumin Triglycerides Cholesterol LDL Cholesterol Direct HDL Cholesterol Urine WBC (Auto) Urine Creatinine Urine Total Protein Vancomycin Trough Rheumatoid Factor Complement C4 Miscellaneous Test Crossmatch See Detail 09/25/16 09/25/16 09/25/16 12:05 17:44 23:47 WBC RBC Hgb Hct MCV MCH MCHC RDW Plt Count Lymph % (Auto) [place] % (Auto) Lymph # [place] # Seg Neutrophils % Seg Neuts % (Manual) Lymphocytes % (Manual) Monocytes % (Manual) Eosinophils % (Manual) Basophils % (Manual) Nucleated RBC % Seg Neutrophils # Seg Neutrophils # Man Lymphocytes # (Manual) Monocytes # (Manual) Eosinophils # (Manual) PT INR Fibrinogen dRVVT Confirm Interp Factor V Activity POC ABG pH POC ABG pCO2 POC ABG pO2 Sodium Potassium Chloride Carbon Dioxide BUN Creatinine Glucose POC Glucose 117 H 119 H 150 H Lactic Acid Calcium Phosphorus Magnesium Direct Bilirubin ALT Alkaline Phosphatase Troponin T C-Reactive Protein Total Protein Albumin Triglycerides Cholesterol LDL Cholesterol Direct HDL Cholesterol Urine WBC (Auto) Urine Creatinine Urine Total Protein Vancomycin Trough Rheumatoid Factor Complement C4 Miscellaneous Test Crossmatch 09/26/16 09/26/16 09/26/16 04:25 04:25 04:25 WBC RBC 2.65 L Hgb 7.4 L Hct 21.6 L MCV MCH MCHC RDW 22.5 H Plt Count Lymph % (Auto) [place] % (Auto) Lymph # [place] # Seg Neutrophils % Seg Neuts % (Manual) Lymphocytes % (Manual) 6.0 L Monocytes % (Manual) Eosinophils % (Manual) 11.0 H Basophils % (Manual) Nucleated RBC % Seg Neutrophils # Seg Neutrophils # Man Lymphocytes # (Manual) 0.4 L Monocytes # (Manual) Eosinophils # (Manual) 0.6 H PT INR Fibrinogen dRVVT Confirm Interp Factor V Activity POC ABG pH POC ABG pCO2 POC ABG pO2 Sodium Potassium Chloride 97.0 L Carbon Dioxide 19 L BUN 43 H Creatinine 2.6 H Glucose 130 H POC Glucose Lactic Acid 4.40 H* Calcium 6.7 L Phosphorus Magnesium Direct Bilirubin ALT Alkaline Phosphatase Troponin T C-Reactive Protein Total Protein Albumin Triglycerides Cholesterol LDL Cholesterol Direct HDL Cholesterol Urine WBC (Auto) Urine Creatinine Urine Total Protein Vancomycin Trough Rheumatoid Factor Complement C4 Miscellaneous Test Crossmatch 09/26/16 09/26/16 09/26/16 05:20 11:44 12:12 WBC RBC Hgb Hct MCV MCH MCHC RDW Plt Count Lymph % (Auto) [place] % (Auto) Lymph # [place] # Seg Neutrophils % Seg Neuts % (Manual) Lymphocytes % (Manual) Monocytes % (Manual) Eosinophils % (Manual) Basophils % (Manual) Nucleated RBC % Seg Neutrophils # Seg Neutrophils # Man Lymphocytes # (Manual) Monocytes # (Manual) Eosinophils # (Manual) PT INR Fibrinogen dRVVT Confirm Interp Factor V Activity POC ABG pH POC ABG pCO2 27.0 L POC ABG pO2 69 L Sodium Potassium Chloride Carbon Dioxide BUN Creatinine Glucose POC Glucose 121 H 128 H Lactic Acid Calcium Phosphorus Magnesium Direct Bilirubin ALT Alkaline Phosphatase Troponin T C-Reactive Protein Total Protein Albumin Triglycerides Cholesterol LDL Cholesterol Direct HDL Cholesterol Urine WBC (Auto) Urine Creatinine Urine Total Protein Vancomycin Trough Rheumatoid Factor Complement C4 Miscellaneous Test Crossmatch 09/26/16 09/26/16 09/27/16 18:31 23:40 08:20 WBC RBC Hgb Hct MCV MCH MCHC RDW Plt Count Lymph % (Auto) [place] % (Auto) Lymph # [place] # Seg Neutrophils % Seg Neuts % (Manual) Lymphocytes % (Manual) Monocytes % (Manual) Eosinophils % (Manual) Basophils % (Manual) Nucleated RBC % Seg Neutrophils # Seg Neutrophils # Man Lymphocytes # (Manual) Monocytes # (Manual) Eosinophils # (Manual) PT INR Fibrinogen dRVVT Confirm Interp Factor V Activity POC ABG pH POC ABG pCO2 POC ABG pO2 Sodium Potassium Chloride Carbon Dioxide BUN Creatinine Glucose POC Glucose 120 H 133 H Lactic Acid 4.10 H* Calcium Phosphorus Magnesium Direct Bilirubin ALT Alkaline Phosphatase Troponin T C-Reactive Protein Total Protein Albumin Triglycerides Cholesterol LDL Cholesterol Direct HDL Cholesterol Urine WBC (Auto) Urine Creatinine Urine Total Protein Vancomycin Trough Rheumatoid Factor Complement C4 Miscellaneous Test Crossmatch 09/27/16 09/27/16 09/27/16 11:23 15:00 18:15 WBC RBC Hgb Hct MCV MCH MCHC RDW Plt Count Lymph % (Auto) [place] % (Auto) Lymph # [place] # Seg Neutrophils % Seg Neuts % (Manual) Lymphocytes % (Manual) Monocytes % (Manual) Eosinophils % (Manual) Basophils % (Manual) Nucleated RBC % Seg Neutrophils # Seg Neutrophils # Man Lymphocytes # (Manual) Monocytes # (Manual) Eosinophils # (Manual) PT INR Fibrinogen dRVVT Confirm Interp Factor V Activity POC ABG pH 7.459 H POC ABG pCO2 27.1 L POC ABG pO2 140 H Sodium Potassium Chloride Carbon Dioxide BUN Creatinine Glucose POC Glucose 114 H 127 H Lactic Acid Calcium Phosphorus Magnesium Direct Bilirubin ALT Alkaline Phosphatase Troponin T C-Reactive Protein Total Protein Albumin Triglycerides Cholesterol LDL Cholesterol Direct HDL Cholesterol Urine WBC (Auto) Urine Creatinine Urine Total Protein Vancomycin Trough Rheumatoid Factor Complement C4 Miscellaneous Test Crossmatch 09/27/16 09/27/16 09/28/16 Unknown Unknown 03:45 WBC RBC 2.49 L Hgb 6.8 L Hct 20.7 L MCV MCH 27 L MCHC RDW 22.1 H Plt Count Lymph % (Auto) [place] % (Auto) Lymph # [place] # Seg Neutrophils % Seg Neuts % (Manual) 32.0 L Lymphocytes % (Manual) 12.0 L Monocytes % (Manual) 11.0 H Eosinophils % (Manual) 10.0 H Basophils % (Manual) Nucleated RBC % Seg Neutrophils # Seg Neutrophils # Man Lymphocytes # (Manual) 1.0 L Monocytes # (Manual) 0.9 H Eosinophils # (Manual) 0.8 H PT INR Fibrinogen dRVVT Confirm Interp Factor V Activity POC ABG pH POC ABG pCO2 POC ABG pO2 Sodium 135 L 135 L Potassium 3.5 L Chloride 93.6 L 94.4 L Carbon Dioxide 17 L 21 L BUN 45 H 28 H Creatinine 3.3 H 2.5 H Glucose 106 H POC Glucose Lactic Acid Calcium 7.3 L 7.1 L Phosphorus Magnesium Direct Bilirubin ALT Alkaline Phosphatase Troponin T C-Reactive Protein Total Protein Albumin Triglycerides Cholesterol LDL Cholesterol Direct HDL Cholesterol Urine WBC (Auto) Urine Creatinine Urine Total Protein Vancomycin Trough Rheumatoid Factor Complement C4 Miscellaneous Test Crossmatch 09/28/16 09/28/16 09/28/16 03:45 07:25 11:58 WBC 13.3 H RBC 3.01 L Hgb 8.4 L Hct 25.0 L MCV MCH MCHC RDW 20.5 H Plt Count 128 L Lymph % (Auto) [place] % (Auto) Lymph # [place] # Seg Neutrophils % Seg Neuts % (Manual) Lymphocytes % (Manual) 7.0 L Monocytes % (Manual) Eosinophils % (Manual) 6.0 H Basophils % (Manual) Nucleated RBC % Seg Neutrophils # Seg Neutrophils # Man Lymphocytes # (Manual) 0.9 L Monocytes # (Manual) Eosinophils # (Manual) 0.8 H PT INR Fibrinogen dRVVT Confirm Interp Factor V Activity POC ABG pH POC ABG pCO2 POC ABG pO2 Sodium Potassium Chloride Carbon Dioxide BUN Creatinine Glucose POC Glucose 121 H Lactic Acid 4.50 H* Calcium Phosphorus Magnesium Direct Bilirubin ALT Alkaline Phosphatase Troponin T C-Reactive Protein Total Protein Albumin Triglycerides Cholesterol LDL Cholesterol Direct HDL Cholesterol Urine WBC (Auto) Urine Creatinine Urine Total Protein Vancomycin Trough Rheumatoid Factor Complement C4 Miscellaneous Test Crossmatch 09/29/16 09/29/16 09/29/16 06:45 06:45 06:45 WBC 14.9 H RBC 2.74 L Hgb 7.6 L Hct 23.2 L MCV MCH MCHC RDW 20.5 H Plt Count 81 L Lymph % (Auto) [place] % (Auto) Lymph # [place] # Seg Neutrophils % Seg Neuts % (Manual) 81.0 H Lymphocytes % (Manual) 4.0 L Monocytes % (Manual) Eosinophils % (Manual) Basophils % (Manual) Nucleated RBC % Seg Neutrophils # Seg Neutrophils # Man 12.1 H Lymphocytes # (Manual) 0.6 L Monocytes # (Manual) Eosinophils # (Manual) PT INR Fibrinogen dRVVT Confirm Interp Factor V Activity POC ABG pH POC ABG pCO2 POC ABG pO2 Sodium 133 L Potassium 3.4 L Chloride 92.5 L Carbon Dioxide 21 L BUN 33 H Creatinine 3.0 H Glucose POC Glucose Lactic Acid Calcium 6.6 L Phosphorus Magnesium 1.40 L Direct Bilirubin 0.9 H ALT Alkaline Phosphatase Troponin T C-Reactive Protein Total Protein 4.3 L Albumin 1.3 L Triglycerides Cholesterol LDL Cholesterol Direct HDL Cholesterol Urine WBC (Auto) Urine Creatinine Urine Total Protein Vancomycin Trough Rheumatoid Factor Complement C4 Miscellaneous Test Crossmatch 09/29/16 09/29/16 09/30/16 17:52 20:12 00:07 WBC RBC Hgb Hct MCV MCH MCHC RDW Plt Count Lymph % (Auto) [place] % (Auto) Lymph # [place] # Seg Neutrophils % Seg Neuts % (Manual) Lymphocytes % (Manual) Monocytes % (Manual) Eosinophils % (Manual) Basophils % (Manual) Nucleated RBC % Seg Neutrophils # Seg Neutrophils # Man Lymphocytes # (Manual) Monocytes # (Manual) Eosinophils # (Manual) PT INR Fibrinogen dRVVT Confirm Interp Factor V Activity POC ABG pH POC ABG pCO2 POC ABG pO2 Sodium Potassium Chloride Carbon Dioxide BUN Creatinine Glucose POC Glucose 50 L 51 L Lactic Acid Calcium Phosphorus Magnesium Direct Bilirubin ALT Alkaline Phosphatase Troponin T 0.204 H* C-Reactive Protein Total Protein Albumin Triglycerides Cholesterol 31 L LDL Cholesterol Direct 4 L HDL Cholesterol 3 L Urine WBC (Auto) Urine Creatinine Urine Total Protein Vancomycin Trough Rheumatoid Factor Complement C4 Miscellaneous Test Crossmatch 09/30/16 09/30/16 09/30/16 01:30 05:15 06:10 WBC RBC Hgb Hct MCV MCH MCHC RDW Plt Count Lymph % (Auto) [place] % (Auto) Lymph # [place] # Seg Neutrophils % Seg Neuts % (Manual) Lymphocytes % (Manual) Monocytes % (Manual) Eosinophils % (Manual) Basophils % (Manual) Nucleated RBC % Seg Neutrophils # Seg Neutrophils # Man Lymphocytes # (Manual) Monocytes # (Manual) Eosinophils # (Manual) PT INR Fibrinogen dRVVT Confirm Interp Factor V Activity POC ABG pH POC ABG pCO2 POC ABG pO2 Sodium 133 L Potassium 3.2 L Chloride 93.2 L Carbon Dioxide 19 L BUN 36 H Creatinine 3.2 H Glucose 104 H POC Glucose 167 H 146 H Lactic Acid Calcium 6.4 L Phosphorus Magnesium 1.60 L Direct Bilirubin ALT Alkaline Phosphatase Troponin T C-Reactive Protein Total Protein Albumin Triglycerides Cholesterol LDL Cholesterol Direct HDL Cholesterol Urine WBC (Auto) Urine Creatinine Urine Total Protein Vancomycin Trough Rheumatoid Factor Complement C4 Miscellaneous Test Crossmatch 09/30/16 09/30/16 09/30/16 11:26 13:39 18:38 WBC RBC Hgb Hct MCV MCH MCHC RDW Plt Count Lymph % (Auto) [place] % (Auto) Lymph # [place] # Seg Neutrophils % Seg Neuts % (Manual) Lymphocytes % (Manual) Monocytes % (Manual) Eosinophils % (Manual) Basophils % (Manual) Nucleated RBC % Seg Neutrophils # Seg Neutrophils # Man Lymphocytes # (Manual) Monocytes # (Manual) Eosinophils # (Manual) PT INR Fibrinogen dRVVT Confirm Interp Factor V Activity POC ABG pH 7.479 H POC ABG pCO2 29.8 L POC ABG pO2 117 H Sodium Potassium Chloride Carbon Dioxide BUN Creatinine Glucose POC Glucose 140 H 122 H Lactic Acid Calcium Phosphorus Magnesium Direct Bilirubin ALT Alkaline Phosphatase Troponin T C-Reactive Protein Total Protein Albumin Triglycerides Cholesterol LDL Cholesterol Direct HDL Cholesterol Urine WBC (Auto) Urine Creatinine Urine Total Protein Vancomycin Trough Rheumatoid Factor Complement C4 Miscellaneous Test Crossmatch 10/01/16 10/01/16 10/01/16 06:00 06:00 12:37 WBC 12.6 H RBC 2.75 L Hgb 7.3 L Hct 23.3 L MCV MCH 27 L MCHC RDW 20.6 H Plt Count 72 L Lymph % (Auto) [place] % (Auto) Lymph # [place] # Seg Neutrophils % Seg Neuts % (Manual) 31.0 L Lymphocytes % (Manual) 8.0 L Monocytes % (Manual) Eosinophils % (Manual) Basophils % (Manual) Nucleated RBC % 3.0 H Seg Neutrophils # Seg Neutrophils # Man Lymphocytes # (Manual) 1.0 L Monocytes # (Manual) Eosinophils # (Manual) PT INR Fibrinogen dRVVT Confirm Interp Factor V Activity POC ABG pH POC ABG pCO2 POC ABG pO2 Sodium 127 L Potassium Chloride 86.8 L Carbon Dioxide 20 L BUN 42 H Creatinine 3.5 H Glucose POC Glucose 65 L Lactic Acid Calcium 7.0 L Phosphorus Magnesium Direct Bilirubin ALT Alkaline Phosphatase Troponin T C-Reactive Protein Total Protein Albumin Triglycerides Cholesterol LDL Cholesterol Direct HDL Cholesterol Urine WBC (Auto) Urine Creatinine Urine Total Protein Vancomycin Trough Rheumatoid Factor Complement C4 Miscellaneous Test Crossmatch 10/01/16 10/01/16 10/02/16 17:39 23:32 00:59 WBC RBC Hgb Hct MCV MCH MCHC RDW Plt Count Lymph % (Auto) [place] % (Auto) Lymph # [place] # Seg Neutrophils % Seg Neuts % (Manual) Lymphocytes % (Manual) Monocytes % (Manual) Eosinophils % (Manual) Basophils % (Manual) Nucleated RBC % Seg Neutrophils # Seg Neutrophils # Man Lymphocytes # (Manual) Monocytes # (Manual) Eosinophils # (Manual) PT INR Fibrinogen dRVVT Confirm Interp Factor V Activity POC ABG pH POC ABG pCO2 POC ABG pO2 Sodium Potassium Chloride Carbon Dioxide BUN Creatinine Glucose POC Glucose 107 H 52 L 145 H Lactic Acid Calcium Phosphorus Magnesium Direct Bilirubin ALT Alkaline Phosphatase Troponin T C-Reactive Protein Total Protein Albumin Triglycerides Cholesterol LDL Cholesterol Direct HDL Cholesterol Urine WBC (Auto) Urine Creatinine Urine Total Protein Vancomycin Trough Rheumatoid Factor Complement C4 Miscellaneous Test Crossmatch 10/02/16 10/02/16 10/02/16 10:30 10:50 10:50 WBC 14.7 H RBC 2.76 L Hgb 7.4 L Hct 23.6 L MCV MCH 27 L MCHC RDW 20.2 H Plt Count 79 L Lymph % (Auto) [place] % (Auto) Lymph # [place] # Seg Neutrophils % Seg Neuts % (Manual) 86.0 H Lymphocytes % (Manual) 6.0 L Monocytes % (Manual) Eosinophils % (Manual) Basophils % (Manual) Nucleated RBC % Seg Neutrophils # Seg Neutrophils # Man 12.6 H Lymphocytes # (Manual) 0.9 L Monocytes # (Manual) Eosinophils # (Manual) PT INR Fibrinogen dRVVT Confirm Interp Factor V Activity POC ABG pH 7.486 H POC ABG pCO2 30.1 L POC ABG pO2 108 H Sodium 131 L Potassium 3.4 L Chloride 89.9 L Carbon Dioxide BUN 26 H Creatinine 2.6 H Glucose POC Glucose Lactic Acid Calcium 7.0 L Phosphorus Magnesium Direct Bilirubin ALT Alkaline Phosphatase Troponin T C-Reactive Protein Total Protein Albumin Triglycerides Cholesterol LDL Cholesterol Direct HDL Cholesterol Urine WBC (Auto) Urine Creatinine Urine Total Protein Vancomycin Trough Rheumatoid Factor Complement C4 Miscellaneous Test Crossmatch 10/02/16 10/03/16 10/03/16 23:45 00:45 05:10 WBC 12.9 H RBC 2.77 L Hgb 7.6 L Hct 23.7 L MCV MCH 27 L MCHC RDW 19.7 H Plt Count 89 L Lymph % (Auto) [place] % (Auto) Lymph # [place] # Seg Neutrophils % Seg Neuts % (Manual) Lymphocytes % (Manual) 8.0 L Monocytes % (Manual) Eosinophils % (Manual) Basophils % (Manual) Nucleated RBC % Seg Neutrophils # 11.9 H Seg Neutrophils # Man Lymphocytes # (Manual) 1.0 L Monocytes # (Manual) Eosinophils # (Manual) PT INR Fibrinogen dRVVT Confirm Interp Factor V Activity POC ABG pH POC ABG pCO2 POC ABG pO2 Sodium Potassium Chloride Carbon Dioxide BUN Creatinine Glucose POC Glucose 55 L 199 H Lactic Acid Calcium Phosphorus Magnesium Direct Bilirubin ALT Alkaline Phosphatase Troponin T C-Reactive Protein Total Protein Albumin Triglycerides Cholesterol LDL Cholesterol Direct HDL Cholesterol Urine WBC (Auto) Urine Creatinine Urine Total Protein Vancomycin Trough Rheumatoid Factor Complement C4 Miscellaneous Test Crossmatch 10/03/16 10/03/16 10/03/16 05:10 12:14 13:18 WBC RBC Hgb Hct MCV MCH MCHC RDW Plt Count Lymph % (Auto) [place] % (Auto) Lymph # [place] # Seg Neutrophils % Seg Neuts % (Manual) Lymphocytes % (Manual) Monocytes % (Manual) Eosinophils % (Manual) Basophils % (Manual) Nucleated RBC % Seg Neutrophils # Seg Neutrophils # Man Lymphocytes # (Manual) Monocytes # (Manual) Eosinophils # (Manual) PT INR Fibrinogen dRVVT Confirm Interp Factor V Activity POC ABG pH POC ABG pCO2 POC ABG pO2 Sodium 129 L Potassium 3.3 L Chloride 88.8 L Carbon Dioxide 20 L BUN 29 H Creatinine 2.8 H Glucose POC Glucose 68 L 127 H Lactic Acid Calcium 7.2 L Phosphorus Magnesium Direct Bilirubin ALT Alkaline Phosphatase Troponin T C-Reactive Protein Total Protein Albumin Triglycerides Cholesterol LDL Cholesterol Direct HDL Cholesterol Urine WBC (Auto) Urine Creatinine Urine Total Protein Vancomycin Trough Rheumatoid Factor Complement C4 Miscellaneous Test Crossmatch 10/03/16 10/03/16 10/03/16 14:42 18:21 19:09 WBC RBC Hgb Hct MCV MCH MCHC RDW Plt Count Lymph % (Auto) [place] % (Auto) Lymph # [place] # Seg Neutrophils % Seg Neuts % (Manual) Lymphocytes % (Manual) Monocytes % (Manual) Eosinophils % (Manual) Basophils % (Manual) Nucleated RBC % Seg Neutrophils # Seg Neutrophils # Man Lymphocytes # (Manual) Monocytes # (Manual) Eosinophils # (Manual) PT INR Fibrinogen dRVVT Confirm Interp Factor V Activity POC ABG pH 7.499 H POC ABG pCO2 28.4 L POC ABG pO2 44 L Sodium Potassium Chloride Carbon Dioxide BUN Creatinine Glucose POC Glucose 64 L 205 H Lactic Acid Calcium Phosphorus Magnesium Direct Bilirubin ALT Alkaline Phosphatase Troponin T C-Reactive Protein Total Protein Albumin Triglycerides Cholesterol LDL Cholesterol Direct HDL Cholesterol Urine WBC (Auto) Urine Creatinine Urine Total Protein Vancomycin Trough Rheumatoid Factor Complement C4 Miscellaneous Test Crossmatch 10/03/16 10/04/16 10/04/16 23:33 04:18 06:30 WBC RBC 2.54 L Hgb 7.1 L Hct 21.7 L MCV MCH MCHC RDW 19.5 H Plt Count 76 L Lymph % (Auto) [place] % (Auto) Lymph # [place] # Seg Neutrophils % Seg Neuts % (Manual) 88.0 H Lymphocytes % (Manual) 6.0 L Monocytes % (Manual) Eosinophils % (Manual) Basophils % (Manual) Nucleated RBC % Seg Neutrophils # Seg Neutrophils # Man 8.8 H Lymphocytes # (Manual) 0.6 L Monocytes # (Manual) Eosinophils # (Manual) PT INR Fibrinogen dRVVT Confirm Interp Factor V Activity POC ABG pH 7.461 H POC ABG pCO2 33.6 L POC ABG pO2 211 H Sodium Potassium Chloride Carbon Dioxide BUN Creatinine Glucose POC Glucose 136 H Lactic Acid Calcium Phosphorus Magnesium Direct Bilirubin ALT Alkaline Phosphatase Troponin T C-Reactive Protein Total Protein Albumin Triglycerides Cholesterol LDL Cholesterol Direct HDL Cholesterol Urine WBC (Auto) Urine Creatinine Urine Total Protein Vancomycin Trough Rheumatoid Factor Complement C4 Miscellaneous Test Crossmatch 10/04/16 10/04/16 10/04/16 06:30 11:45 17:54 WBC RBC Hgb Hct MCV MCH MCHC RDW Plt Count Lymph % (Auto) [place] % (Auto) Lymph # [place] # Seg Neutrophils % Seg Neuts % (Manual) Lymphocytes % (Manual) Monocytes % (Manual) Eosinophils % (Manual) Basophils % (Manual) Nucleated RBC % Seg Neutrophils # Seg Neutrophils # Man Lymphocytes # (Manual) Monocytes # (Manual) Eosinophils # (Manual) PT INR Fibrinogen dRVVT Confirm Interp Factor V Activity POC ABG pH POC ABG pCO2 POC ABG pO2 Sodium 128 L Potassium Chloride 87.4 L Carbon Dioxide 20 L BUN 34 H Creatinine 2.9 H Glucose 127 H POC Glucose 158 H 160 H Lactic Acid Calcium 7.4 L Phosphorus Magnesium Direct Bilirubin ALT Alkaline Phosphatase Troponin T C-Reactive Protein Total Protein Albumin Triglycerides Cholesterol LDL Cholesterol Direct HDL Cholesterol Urine WBC (Auto) Urine Creatinine Urine Total Protein Vancomycin Trough Rheumatoid Factor Complement C4 Miscellaneous Test Crossmatch 10/04/16 10/05/16 10/05/16 23:25 04:30 05:00 WBC RBC 2.64 L Hgb 7.5 L Hct 22.6 L MCV MCH MCHC RDW 19.3 H Plt Count 80 L Lymph % (Auto) [place] % (Auto) Lymph # [place] # Seg Neutrophils % Seg Neuts % (Manual) Lymphocytes % (Manual) 12.0 L Monocytes % (Manual) Eosinophils % (Manual) Basophils % (Manual) Nucleated RBC % Seg Neutrophils # Seg Neutrophils # Man Lymphocytes # (Manual) Monocytes # (Manual) Eosinophils # (Manual) PT INR Fibrinogen dRVVT Confirm Interp Factor V Activity POC ABG pH 7.475 H POC ABG pCO2 33.3 L POC ABG pO2 140 H Sodium Potassium Chloride Carbon Dioxide BUN Creatinine Glucose POC Glucose 141 H Lactic Acid Calcium Phosphorus Magnesium Direct Bilirubin ALT Alkaline Phosphatase Troponin T C-Reactive Protein Total Protein Albumin Triglycerides Cholesterol LDL Cholesterol Direct HDL Cholesterol Urine WBC (Auto) Urine Creatinine Urine Total Protein Vancomycin Trough Rheumatoid Factor Complement C4 Miscellaneous Test Crossmatch 10/05/16 10/05/16 10/05/16 05:00 05:09 12:58 WBC RBC Hgb Hct MCV MCH MCHC RDW Plt Count Lymph % (Auto) [place] % (Auto) Lymph # [place] # Seg Neutrophils % Seg Neuts % (Manual) Lymphocytes % (Manual) Monocytes % (Manual) Eosinophils % (Manual) Basophils % (Manual) Nucleated RBC % Seg Neutrophils # Seg Neutrophils # Man Lymphocytes # (Manual) Monocytes # (Manual) Eosinophils # (Manual) PT INR Fibrinogen dRVVT Confirm Interp Factor V Activity POC ABG pH POC ABG pCO2 POC ABG pO2 Sodium 131 L Potassium Chloride 94.0 L Carbon Dioxide 20 L BUN 22 H Creatinine 2.0 H Glucose 123 H POC Glucose 166 H 179 H Lactic Acid Calcium 7.7 L Phosphorus 2.20 L D Magnesium Direct Bilirubin ALT Alkaline Phosphatase Troponin T C-Reactive Protein Total Protein Albumin Triglycerides Cholesterol LDL Cholesterol Direct HDL Cholesterol Urine WBC (Auto) Urine Creatinine Urine Total Protein Vancomycin Trough Rheumatoid Factor Complement C4 Miscellaneous Test Crossmatch 10/05/16 10/05/16 10/05/16 15:50 18:53 23:12 WBC RBC Hgb Hct MCV MCH MCHC RDW Plt Count Lymph % (Auto) [place] % (Auto) Lymph # [place] # Seg Neutrophils % Seg Neuts % (Manual) Lymphocytes % (Manual) Monocytes % (Manual) Eosinophils % (Manual) Basophils % (Manual) Nucleated RBC % Seg Neutrophils # Seg Neutrophils # Man Lymphocytes # (Manual) Monocytes # (Manual) Eosinophils # (Manual) PT INR Fibrinogen dRVVT Confirm Interp Factor V Activity POC ABG pH POC ABG pCO2 POC ABG pO2 Sodium Potassium Chloride Carbon Dioxide BUN Creatinine Glucose POC Glucose 150 H 164 H Lactic Acid Calcium Phosphorus Magnesium Direct Bilirubin ALT Alkaline Phosphatase Troponin T C-Reactive Protein Total Protein Albumin Triglycerides Cholesterol LDL Cholesterol Direct HDL Cholesterol Urine WBC (Auto) Urine Creatinine Urine Total Protein Vancomycin Trough Rheumatoid Factor Complement C4 Miscellaneous Test Crossmatch See Detail 10/06/16 10/06/16 10/06/16 03:50 03:50 04:53 WBC RBC 3.00 L Hgb 8.6 L Hct 25.8 L MCV MCH MCHC RDW 17.9 H Plt Count 65 L Lymph % (Auto) [place] % (Auto) Lymph # [place] # Seg Neutrophils % Seg Neuts % (Manual) 30.0 L Lymphocytes % (Manual) 5.0 L Monocytes % (Manual) Eosinophils % (Manual) Basophils % (Manual) Nucleated RBC % Seg Neutrophils # Seg Neutrophils # Man Lymphocytes # (Manual) 0.4 L Monocytes # (Manual) Eosinophils # (Manual) PT INR Fibrinogen dRVVT Confirm Interp Factor V Activity POC ABG pH 7.310 L POC ABG pCO2 49.0 H POC ABG pO2 Sodium 133 L Potassium Chloride 95.9 L Carbon Dioxide BUN 26 H Creatinine 2.0 H Glucose 116 H POC Glucose Lactic Acid Calcium 7.8 L Phosphorus Magnesium Direct Bilirubin ALT Alkaline Phosphatase Troponin T C-Reactive Protein Total Protein Albumin Triglycerides Cholesterol LDL Cholesterol Direct HDL Cholesterol Urine WBC (Auto) Urine Creatinine Urine Total Protein Vancomycin Trough Rheumatoid Factor Complement C4 Miscellaneous Test Crossmatch 10/06/16 10/06/16 10/06/16 05:23 11:52 18:34 WBC RBC Hgb Hct MCV MCH MCHC RDW Plt Count Lymph % (Auto) [place] % (Auto) Lymph # [place] # Seg Neutrophils % Seg Neuts % (Manual) Lymphocytes % (Manual) Monocytes % (Manual) Eosinophils % (Manual) Basophils % (Manual) Nucleated RBC % Seg Neutrophils # Seg Neutrophils # Man Lymphocytes # (Manual) Monocytes # (Manual) Eosinophils # (Manual) PT INR Fibrinogen dRVVT Confirm Interp Factor V Activity POC ABG pH POC ABG pCO2 POC ABG pO2 Sodium Potassium Chloride Carbon Dioxide BUN Creatinine Glucose POC Glucose 126 H 116 H 129 H Lactic Acid Calcium Phosphorus Magnesium Direct Bilirubin ALT Alkaline Phosphatase Troponin T C-Reactive Protein Total Protein Albumin Triglycerides Cholesterol LDL Cholesterol Direct HDL Cholesterol Urine WBC (Auto) Urine Creatinine Urine Total Protein Vancomycin Trough Rheumatoid Factor Complement C4 Miscellaneous Test Crossmatch 10/07/16 10/07/16 10/07/16 03:45 05:00 10:00 WBC 17.0 H RBC 2.68 L Hgb 7.3 L Hct 25.3 L MCV MCH 27 L MCHC 29 L RDW 19.6 H Plt Count 74 L Lymph % (Auto) [place] % (Auto) Lymph # [place] # Seg Neutrophils % Seg Neuts % (Manual) Lymphocytes % (Manual) 12.0 L Monocytes % (Manual) Eosinophils % (Manual) Basophils % (Manual) Nucleated RBC % 4.0 H Seg Neutrophils # Seg Neutrophils # Man 10.7 H Lymphocytes # (Manual) Monocytes # (Manual) Eosinophils # (Manual) PT INR Fibrinogen dRVVT Confirm Interp Factor V Activity POC ABG pH POC ABG pCO2 POC ABG pO2 Sodium 130 L Potassium 3.2 L Chloride 93.9 L Carbon Dioxide 20 L BUN 44 H Creatinine 2.7 H Glucose 129 H POC Glucose Lactic Acid Calcium 7.4 L Phosphorus Magnesium Direct Bilirubin ALT 6 L Alkaline Phosphatase 195 H Troponin T C-Reactive Protein Total Protein 4.9 L Albumin 1.0 L Triglycerides Cholesterol LDL Cholesterol Direct HDL Cholesterol Urine WBC (Auto) Urine Creatinine Urine Total Protein Vancomycin Trough Rheumatoid Factor Complement C4 Miscellaneous Test Flexitest 1 H Crossmatch 10/07/16 10/07/16 10/07/16 10:00 11:24 18:10 WBC RBC Hgb Hct MCV MCH MCHC RDW Plt Count Lymph % (Auto) [place] % (Auto) Lymph # [place] # Seg Neutrophils % Seg Neuts % (Manual) Lymphocytes % (Manual) Monocytes % (Manual) Eosinophils % (Manual) Basophils % (Manual) Nucleated RBC % Seg Neutrophils # Seg Neutrophils # Man Lymphocytes # (Manual) Monocytes # (Manual) Eosinophils # (Manual) PT INR Fibrinogen dRVVT Confirm Interp Factor V Activity POC ABG pH POC ABG pCO2 POC ABG pO2 Sodium Potassium Chloride Carbon Dioxide BUN Creatinine Glucose POC Glucose 116 H 130 H Lactic Acid Calcium Phosphorus Magnesium Direct Bilirubin ALT Alkaline Phosphatase Troponin T C-Reactive Protein 19.40 H Total Protein Albumin Triglycerides Cholesterol LDL Cholesterol Direct HDL Cholesterol Urine WBC (Auto) Urine Creatinine Urine Total Protein Vancomycin Trough Rheumatoid Factor Complement C4 Miscellaneous Test Crossmatch 10/07/16 10/08/16 10/08/16 18:30 00:00 04:00 WBC RBC Hgb Hct MCV MCH MCHC RDW Plt Count Lymph % (Auto) [place] % (Auto) Lymph # [place] # Seg Neutrophils % Seg Neuts % (Manual) Lymphocytes % (Manual) Monocytes % (Manual) Eosinophils % (Manual) Basophils % (Manual) Nucleated RBC % Seg Neutrophils # Seg Neutrophils # Man Lymphocytes # (Manual) Monocytes # (Manual) Eosinophils # (Manual) PT INR Fibrinogen dRVVT Confirm Interp Factor V Activity POC ABG pH POC ABG pCO2 POC ABG pO2 Sodium 132 L Potassium 3.3 L Chloride 93.6 L Carbon Dioxide 17 L BUN 59 H Creatinine 2.7 H Glucose 121 H POC Glucose 122 H Lactic Acid Calcium 7.6 L Phosphorus Magnesium Direct Bilirubin ALT Alkaline Phosphatase Troponin T C-Reactive Protein Total Protein Albumin Triglycerides Cholesterol LDL Cholesterol Direct HDL Cholesterol Urine WBC (Auto) > 182.0 H Urine Creatinine Urine Total Protein Vancomycin Trough Rheumatoid Factor Complement C4 Miscellaneous Test Crossmatch 10/08/16 10/08/16 10/08/16 04:30 05:30 11:51 WBC RBC 5.15 H Hgb 14.4 H D Hct 44.5 H D MCV MCH MCHC RDW 19.5 H Plt Count 56 L Lymph % (Auto) [place] % (Auto) Lymph # [place] # Seg Neutrophils % Seg Neuts % (Manual) 24.0 L Lymphocytes % (Manual) 8.0 L Monocytes % (Manual) Eosinophils % (Manual) Basophils % (Manual) Nucleated RBC % 9.0 H Seg Neutrophils # Seg Neutrophils # Man Lymphocytes # (Manual) 0.7 L Monocytes # (Manual) Eosinophils # (Manual) PT INR Fibrinogen dRVVT Confirm Interp Factor V Activity POC ABG pH POC ABG pCO2 POC ABG pO2 Sodium Potassium Chloride Carbon Dioxide BUN Creatinine Glucose POC Glucose 125 H 150 H Lactic Acid Calcium Phosphorus Magnesium Direct Bilirubin ALT Alkaline Phosphatase Troponin T C-Reactive Protein Total Protein Albumin Triglycerides Cholesterol LDL Cholesterol Direct HDL Cholesterol Urine WBC (Auto) Urine Creatinine Urine Total Protein Vancomycin Trough Rheumatoid Factor Complement C4 Miscellaneous Test Crossmatch 10/08/16 10/08/16 10/08/16 12:49 17:07 19:30 WBC RBC Hgb 7.1 L D Hct 22.4 L D MCV MCH MCHC RDW Plt Count Lymph % (Auto) [place] % (Auto) Lymph # [place] # Seg Neutrophils % Seg Neuts % (Manual) Lymphocytes % (Manual) Monocytes % (Manual) Eosinophils % (Manual) Basophils % (Manual) Nucleated RBC % Seg Neutrophils # Seg Neutrophils # Man Lymphocytes # (Manual) Monocytes # (Manual) Eosinophils # (Manual) PT INR Fibrinogen dRVVT Confirm Interp Factor V Activity POC ABG pH POC ABG pCO2 28.2 L POC ABG pO2 111 H Sodium Potassium Chloride Carbon Dioxide BUN Creatinine Glucose POC Glucose 145 H Lactic Acid Calcium Phosphorus Magnesium Direct Bilirubin ALT Alkaline Phosphatase Troponin T C-Reactive Protein Total Protein Albumin Triglycerides Cholesterol LDL Cholesterol Direct HDL Cholesterol Urine WBC (Auto) Urine Creatinine Urine Total Protein Vancomycin Trough Rheumatoid Factor Complement C4 Miscellaneous Test Crossmatch 10/08/16 10/09/16 10/09/16 19:30 03:45 03:45 WBC 12.6 H RBC 2.36 L Hgb 6.7 L Hct 21.1 L MCV MCH MCHC RDW 19.5 H Plt Count 75 L Lymph % (Auto) [place] % (Auto) Lymph # [place] # Seg Neutrophils % Seg Neuts % (Manual) Lymphocytes % (Manual) Monocytes % (Manual) 10.0 H Eosinophils % (Manual) Basophils % (Manual) Nucleated RBC % 3.0 H Seg Neutrophils # Seg Neutrophils # Man Lymphocytes # (Manual) Monocytes # (Manual) 1.3 H Eosinophils # (Manual) PT 18.0 H INR 1.41 H Fibrinogen dRVVT Confirm Interp Factor V Activity POC ABG pH POC ABG pCO2 POC ABG pO2 Sodium 135 L Potassium Chloride Carbon Dioxide 17 L BUN 81 H Creatinine 3.2 H Glucose 109 H POC Glucose Lactic Acid Calcium 7.4 L Phosphorus 4.60 H D Magnesium Direct Bilirubin ALT Alkaline Phosphatase Troponin T C-Reactive Protein Total Protein Albumin Triglycerides Cholesterol LDL Cholesterol Direct HDL Cholesterol Urine WBC (Auto) Urine Creatinine Urine Total Protein Vancomycin Trough Rheumatoid Factor Complement C4 Miscellaneous Test Crossmatch 10/09/16 10/09/16 10/09/16 03:45 05:14 07:20 WBC RBC Hgb Hct MCV MCH MCHC RDW Plt Count Lymph % (Auto) [place] % (Auto) Lymph # [place] # Seg Neutrophils % Seg Neuts % (Manual) Lymphocytes % (Manual) Monocytes % (Manual) Eosinophils % (Manual) Basophils % (Manual) Nucleated RBC % Seg Neutrophils # Seg Neutrophils # Man Lymphocytes # (Manual) Monocytes # (Manual) Eosinophils # (Manual) PT 19.0 H INR 1.51 H Fibrinogen dRVVT Confirm Interp Factor V Activity POC ABG pH POC ABG pCO2 POC ABG pO2 Sodium Potassium Chloride Carbon Dioxide BUN Creatinine Glucose POC Glucose 151 H Lactic Acid Calcium Phosphorus Magnesium Direct Bilirubin ALT Alkaline Phosphatase Troponin T C-Reactive Protein Total Protein Albumin Triglycerides Cholesterol LDL Cholesterol Direct HDL Cholesterol Urine WBC (Auto) Urine Creatinine Urine Total Protein Vancomycin Trough Rheumatoid Factor Complement C4 Miscellaneous Test Crossmatch See Detail 10/09/16 10/09/16 10/09/16 11:46 16:20 16:43 WBC RBC Hgb 7.2 L Hct 22.2 L MCV MCH MCHC RDW Plt Count Lymph % (Auto) [place] % (Auto) Lymph # [place] # Seg Neutrophils % Seg Neuts % (Manual) Lymphocytes % (Manual) Monocytes % (Manual) Eosinophils % (Manual) Basophils % (Manual) Nucleated RBC % Seg Neutrophils # Seg Neutrophils # Man Lymphocytes # (Manual) Monocytes # (Manual) Eosinophils # (Manual) PT INR Fibrinogen dRVVT Confirm Interp Factor V Activity POC ABG pH POC ABG pCO2 POC ABG pO2 Sodium Potassium Chloride Carbon Dioxide BUN Creatinine Glucose POC Glucose 133 H 141 H Lactic Acid Calcium Phosphorus Magnesium Direct Bilirubin ALT Alkaline Phosphatase Troponin T C-Reactive Protein Total Protein Albumin Triglycerides Cholesterol LDL Cholesterol Direct HDL Cholesterol Urine WBC (Auto) Urine Creatinine Urine Total Protein Vancomycin Trough Rheumatoid Factor Complement C4 Miscellaneous Test Crossmatch 10/10/16 10/10/16 10/10/16 05:00 05:00 11:19 WBC 18.5 H RBC 2.19 L Hgb 6.4 L Hct 19.6 L* MCV MCH MCHC RDW 19.3 H Plt Count 93 L Lymph % (Auto) [place] % (Auto) Lymph # [place] # Seg Neutrophils % Seg Neuts % (Manual) Lymphocytes % (Manual) 10.0 L Monocytes % (Manual) Eosinophils % (Manual) Basophils % (Manual) Nucleated RBC % 4.0 H Seg Neutrophils # Seg Neutrophils # Man 11.3 H Lymphocytes # (Manual) Monocytes # (Manual) Eosinophils # (Manual) PT INR Fibrinogen dRVVT Confirm Interp Factor V Activity POC ABG pH POC ABG pCO2 POC ABG pO2 Sodium Potassium 5.7 H D Chloride Carbon Dioxide 16 L BUN 94 H Creatinine 3.1 H Glucose 131 H POC Glucose 153 H Lactic Acid Calcium 8.2 L Phosphorus 5.10 H Magnesium 2.40 H Direct Bilirubin 0.3 H ALT < 5 L Alkaline Phosphatase 319 H Troponin T C-Reactive Protein Total Protein 5.1 L Albumin 1.0 L Triglycerides Cholesterol LDL Cholesterol Direct HDL Cholesterol Urine WBC (Auto) Urine Creatinine Urine Total Protein Vancomycin Trough Rheumatoid Factor Complement C4 Miscellaneous Test Crossmatch 10/10/16 10/10/16 10/11/16 17:50 23:30 04:15 WBC RBC Hgb Hct MCV MCH MCHC RDW Plt Count Lymph % (Auto) [place] % (Auto) Lymph # [place] # Seg Neutrophils % Seg Neuts % (Manual) Lymphocytes % (Manual) Monocytes % (Manual) Eosinophils % (Manual) Basophils % (Manual) Nucleated RBC % Seg Neutrophils # Seg Neutrophils # Man Lymphocytes # (Manual) Monocytes # (Manual) Eosinophils # (Manual) PT INR Fibrinogen dRVVT Confirm Interp Factor V Activity POC ABG pH POC ABG pCO2 POC ABG pO2 Sodium Potassium Chloride 96.4 L Carbon Dioxide 21 L BUN 57 H Creatinine 2.1 H Glucose 151 H POC Glucose 146 H 141 H Lactic Acid Calcium 8.3 L Phosphorus Magnesium Direct Bilirubin ALT Alkaline Phosphatase Troponin T C-Reactive Protein Total Protein Albumin Triglycerides Cholesterol LDL Cholesterol Direct HDL Cholesterol Urine WBC (Auto) Urine Creatinine Urine Total Protein Vancomycin Trough Rheumatoid Factor Complement C4 Miscellaneous Test Crossmatch 10/11/16 10/11/16 10/11/16 04:15 04:15 05:30 WBC 28.3 H RBC 3.12 L Hgb 9.3 L Hct 28.7 L D MCV MCH MCHC RDW 17.7 H Plt Count 128 L Lymph % (Auto) [place] % (Auto) Lymph # [place] # Seg Neutrophils % Seg Neuts % (Manual) Lymphocytes % (Manual) Monocytes % (Manual) Eosinophils % (Manual) Basophils % (Manual) Nucleated RBC % Seg Neutrophils # Seg Neutrophils # Man Lymphocytes # (Manual) Monocytes # (Manual) Eosinophils # (Manual) PT INR Fibrinogen dRVVT Confirm Interp Factor V Activity POC ABG pH POC ABG pCO2 POC ABG pO2 Sodium Potassium Chloride Carbon Dioxide BUN Creatinine Glucose POC Glucose 167 H Lactic Acid Calcium Phosphorus Magnesium Direct Bilirubin ALT Alkaline Phosphatase Troponin T C-Reactive Protein 15.80 H Total Protein Albumin Triglycerides Cholesterol LDL Cholesterol Direct HDL Cholesterol Urine WBC (Auto) Urine Creatinine Urine Total Protein Vancomycin Trough Rheumatoid Factor Complement C4 Miscellaneous Test Crossmatch 10/11/16 10/11/16 10/11/16 11:40 15:49 23:57 WBC RBC Hgb Hct MCV MCH MCHC RDW Plt Count Lymph % (Auto) [place] % (Auto) Lymph # [place] # Seg Neutrophils % Seg Neuts % (Manual) Lymphocytes % (Manual) Monocytes % (Manual) Eosinophils % (Manual) Basophils % (Manual) Nucleated RBC % Seg Neutrophils # Seg Neutrophils # Man Lymphocytes # (Manual) Monocytes # (Manual) Eosinophils # (Manual) PT INR Fibrinogen dRVVT Confirm Interp Factor V Activity POC ABG pH POC ABG pCO2 POC ABG pO2 Sodium Potassium Chloride Carbon Dioxide BUN Creatinine Glucose POC Glucose 139 H 168 H 161 H Lactic Acid Calcium Phosphorus Magnesium Direct Bilirubin ALT Alkaline Phosphatase Troponin T C-Reactive Protein Total Protein Albumin Triglycerides Cholesterol LDL Cholesterol Direct HDL Cholesterol Urine WBC (Auto) Urine Creatinine Urine Total Protein Vancomycin Trough Rheumatoid Factor Complement C4 Miscellaneous Test Crossmatch 10/12/16 10/12/16 10/12/16 04:40 04:40 05:44 WBC 22.5 H RBC 2.88 L Hgb 8.8 L Hct 26.8 L MCV MCH MCHC RDW 17.8 H Plt Count Lymph % (Auto) [place] % (Auto) Lymph # [place] # Seg Neutrophils % Seg Neuts % (Manual) Lymphocytes % (Manual) Monocytes % (Manual) Eosinophils % (Manual) Basophils % (Manual) Nucleated RBC % Seg Neutrophils # Seg Neutrophils # Man Lymphocytes # (Manual) Monocytes # (Manual) Eosinophils # (Manual) PT INR Fibrinogen dRVVT Confirm Interp Factor V Activity POC ABG pH POC ABG pCO2 POC ABG pO2 Sodium 134 L Potassium Chloride 93.0 L Carbon Dioxide BUN 74 H Creatinine 2.5 H Glucose 137 H POC Glucose 158 H Lactic Acid Calcium 8.2 L Phosphorus Magnesium Direct Bilirubin ALT Alkaline Phosphatase Troponin T C-Reactive Protein Total Protein Albumin Triglycerides Cholesterol LDL Cholesterol Direct HDL Cholesterol Urine WBC (Auto) Urine Creatinine Urine Total Protein Vancomycin Trough Rheumatoid Factor Complement C4 Miscellaneous Test Crossmatch 10/12/16 10/12/16 10/12/16 12:27 18:18 23:46 WBC RBC Hgb Hct MCV MCH MCHC RDW Plt Count Lymph % (Auto) [place] % (Auto) Lymph # [place] # Seg Neutrophils % Seg Neuts % (Manual) Lymphocytes % (Manual) Monocytes % (Manual) Eosinophils % (Manual) Basophils % (Manual) Nucleated RBC % Seg Neutrophils # Seg Neutrophils # Man Lymphocytes # (Manual) Monocytes # (Manual) Eosinophils # (Manual) PT INR Fibrinogen dRVVT Confirm Interp Factor V Activity POC ABG pH POC ABG pCO2 POC ABG pO2 Sodium Potassium Chloride Carbon Dioxide BUN Creatinine Glucose POC Glucose 153 H 140 H 150 H Lactic Acid Calcium Phosphorus Magnesium Direct Bilirubin ALT Alkaline Phosphatase Troponin T C-Reactive Protein Total Protein Albumin Triglycerides Cholesterol LDL Cholesterol Direct HDL Cholesterol Urine WBC (Auto) Urine Creatinine Urine Total Protein Vancomycin Trough Rheumatoid Factor Complement C4 Miscellaneous Test Crossmatch 10/13/16 10/13/16 10/13/16 06:22 09:20 12:29 WBC RBC Hgb Hct MCV MCH MCHC RDW Plt Count Lymph % (Auto) [place] % (Auto) Lymph # [place] # Seg Neutrophils % Seg Neuts % (Manual) Lymphocytes % (Manual) Monocytes % (Manual) Eosinophils % (Manual) Basophils % (Manual) Nucleated RBC % Seg Neutrophils # Seg Neutrophils # Man Lymphocytes # (Manual) Monocytes # (Manual) Eosinophils # (Manual) PT INR Fibrinogen dRVVT Confirm Interp Factor V Activity POC ABG pH POC ABG pCO2 POC ABG pO2 Sodium Potassium Chloride Carbon Dioxide BUN Creatinine Glucose POC Glucose 165 H 193 H Lactic Acid Calcium Phosphorus Magnesium Direct Bilirubin ALT Alkaline Phosphatase Troponin T C-Reactive Protein Total Protein Albumin Triglycerides Cholesterol LDL Cholesterol Direct HDL Cholesterol Urine WBC (Auto) Urine Creatinine Urine Total Protein Vancomycin Trough Rheumatoid Factor Complement C4 Miscellaneous Test Flexitest 1 H Crossmatch 10/13/16 10/13/16 10/13/16 18:09 Unknown Unknown WBC 23.4 H RBC 2.83 L Hgb 8.7 L Hct 26.1 L MCV MCH MCHC RDW 18.1 H Plt Count Lymph % (Auto) [place] % (Auto) Lymph # [place] # Seg Neutrophils % Seg Neuts % (Manual) Lymphocytes % (Manual) Monocytes % (Manual) Eosinophils % (Manual) Basophils % (Manual) Nucleated RBC % Seg Neutrophils # Seg Neutrophils # Man Lymphocytes # (Manual) Monocytes # (Manual) Eosinophils # (Manual) PT INR Fibrinogen dRVVT Confirm Interp Factor V Activity POC ABG pH POC ABG pCO2 POC ABG pO2 Sodium Potassium Chloride 95.8 L Carbon Dioxide BUN 82 H Creatinine 2.6 H Glucose 152 H POC Glucose 166 H Lactic Acid Calcium Phosphorus Magnesium Direct Bilirubin ALT Alkaline Phosphatase Troponin T C-Reactive Protein Total Protein Albumin Triglycerides Cholesterol LDL Cholesterol Direct HDL Cholesterol Urine WBC (Auto) Urine Creatinine Urine Total Protein Vancomycin Trough Rheumatoid Factor Complement C4 Miscellaneous Test Crossmatch 10/14/16 10/14/16 10/14/16 05:38 06:35 08:10 WBC 20.7 H RBC 2.81 L Hgb 8.4 L Hct 27.2 L MCV MCH MCHC RDW 19.4 H Plt Count Lymph % (Auto) [place] % (Auto) Lymph # [place] # Seg Neutrophils % Seg Neuts % (Manual) Lymphocytes % (Manual) Monocytes % (Manual) Eosinophils % (Manual) Basophils % (Manual) Nucleated RBC % Seg Neutrophils # Seg Neutrophils # Man Lymphocytes # (Manual) Monocytes # (Manual) Eosinophils # (Manual) PT INR Fibrinogen dRVVT Confirm Interp Factor V Activity POC ABG pH POC ABG pCO2 POC ABG pO2 Sodium Potassium Chloride Carbon Dioxide BUN 58 H Creatinine 1.9 H Glucose 169 H POC Glucose 195 H Lactic Acid Calcium Phosphorus Magnesium Direct Bilirubin ALT Alkaline Phosphatase Troponin T C-Reactive Protein Total Protein Albumin Triglycerides Cholesterol LDL Cholesterol Direct HDL Cholesterol Urine WBC (Auto) Urine Creatinine Urine Total Protein Vancomycin Trough Rheumatoid Factor Complement C4 Miscellaneous Test Crossmatch 10/14/16 10/14/16 10/14/16 11:44 17:13 23:28 WBC RBC Hgb Hct MCV MCH MCHC RDW Plt Count Lymph % (Auto) [place] % (Auto) Lymph # [place] # Seg Neutrophils % Seg Neuts % (Manual) Lymphocytes % (Manual) Monocytes % (Manual) Eosinophils % (Manual) Basophils % (Manual) Nucleated RBC % Seg Neutrophils # Seg Neutrophils # Man Lymphocytes # (Manual) Monocytes # (Manual) Eosinophils # (Manual) PT INR Fibrinogen dRVVT Confirm Interp Factor V Activity POC ABG pH POC ABG pCO2 POC ABG pO2 Sodium Potassium Chloride Carbon Dioxide BUN Creatinine Glucose POC Glucose 174 H 121 H 151 H Lactic Acid Calcium Phosphorus Magnesium Direct Bilirubin ALT Alkaline Phosphatase Troponin T C-Reactive Protein Total Protein Albumin Triglycerides Cholesterol LDL Cholesterol Direct HDL Cholesterol Urine WBC (Auto) Urine Creatinine Urine Total Protein Vancomycin Trough Rheumatoid Factor Complement C4 Miscellaneous Test Crossmatch 10/15/16 10/15/16 10/15/16 05:06 12:26 17:48 WBC RBC Hgb Hct MCV MCH MCHC RDW Plt Count Lymph % (Auto) [place] % (Auto) Lymph # [place] # Seg Neutrophils % Seg Neuts % (Manual) Lymphocytes % (Manual) Monocytes % (Manual) Eosinophils % (Manual) Basophils % (Manual) Nucleated RBC % Seg Neutrophils # Seg Neutrophils # Man Lymphocytes # (Manual) Monocytes # (Manual) Eosinophils # (Manual) PT INR Fibrinogen dRVVT Confirm Interp Factor V Activity POC ABG pH POC ABG pCO2 POC ABG pO2 Sodium Potassium Chloride Carbon Dioxide BUN Creatinine Glucose POC Glucose 151 H 149 H 153 H Lactic Acid Calcium Phosphorus Magnesium Direct Bilirubin ALT Alkaline Phosphatase Troponin T C-Reactive Protein Total Protein Albumin Triglycerides Cholesterol LDL Cholesterol Direct HDL Cholesterol Urine WBC (Auto) Urine Creatinine Urine Total Protein Vancomycin Trough Rheumatoid Factor Complement C4 Miscellaneous Test Crossmatch 10/15/16 10/15/16 10/16/16 Unknown Unknown 00:02 WBC 23.4 H RBC 2.78 L Hgb 8.5 L Hct 25.7 L MCV MCH MCHC RDW 18.7 H Plt Count Lymph % (Auto) [place] % (Auto) Lymph # [place] # Seg Neutrophils % Seg Neuts % (Manual) Lymphocytes % (Manual) Monocytes % (Manual) Eosinophils % (Manual) Basophils % (Manual) Nucleated RBC % Seg Neutrophils # Seg Neutrophils # Man Lymphocytes # (Manual) Monocytes # (Manual) Eosinophils # (Manual) PT INR Fibrinogen dRVVT Confirm Interp Factor V Activity POC ABG pH POC ABG pCO2 POC ABG pO2 Sodium Potassium Chloride Carbon Dioxide BUN 73 H Creatinine 2.3 H Glucose 120 H POC Glucose 137 H Lactic Acid Calcium Phosphorus Magnesium Direct Bilirubin ALT Alkaline Phosphatase Troponin T C-Reactive Protein Total Protein Albumin Triglycerides Cholesterol LDL Cholesterol Direct HDL Cholesterol Urine WBC (Auto) Urine Creatinine Urine Total Protein Vancomycin Trough Rheumatoid Factor Complement C4 Miscellaneous Test Crossmatch 10/16/16 10/16/16 10/16/16 05:44 06:25 06:25 WBC 22.5 H RBC 2.76 L Hgb 8.3 L Hct 25.2 L MCV MCH MCHC RDW 18.3 H Plt Count Lymph % (Auto) [place] % (Auto) Lymph # [place] # Seg Neutrophils % Seg Neuts % (Manual) Lymphocytes % (Manual) Monocytes % (Manual) Eosinophils % (Manual) Basophils % (Manual) Nucleated RBC % Seg Neutrophils # Seg Neutrophils # Man Lymphocytes # (Manual) Monocytes # (Manual) Eosinophils # (Manual) PT INR Fibrinogen dRVVT Confirm Interp Factor V Activity POC ABG pH POC ABG pCO2 POC ABG pO2 Sodium Potassium Chloride Carbon Dioxide BUN 92 H Creatinine 3.0 H Glucose 138 H POC Glucose 110 H Lactic Acid Calcium Phosphorus Magnesium Direct Bilirubin ALT Alkaline Phosphatase Troponin T C-Reactive Protein Total Protein Albumin Triglycerides Cholesterol LDL Cholesterol Direct HDL Cholesterol Urine WBC (Auto) Urine Creatinine Urine Total Protein Vancomycin Trough Rheumatoid Factor Complement C4 Miscellaneous Test Crossmatch 10/16/16 10/16/16 10/16/16 11:27 11:48 17:36 WBC RBC Hgb Hct MCV MCH MCHC RDW Plt Count Lymph % (Auto) [place] % (Auto) Lymph # [place] # Seg Neutrophils % Seg Neuts % (Manual) Lymphocytes % (Manual) Monocytes % (Manual) Eosinophils % (Manual) Basophils % (Manual) Nucleated RBC % Seg Neutrophils # Seg Neutrophils # Man Lymphocytes # (Manual) Monocytes # (Manual) Eosinophils # (Manual) PT INR Fibrinogen dRVVT Confirm Interp Factor V Activity POC ABG pH 7.582 H POC ABG pCO2 27.4 L POC ABG pO2 110 H Sodium Potassium Chloride Carbon Dioxide BUN Creatinine Glucose POC Glucose 121 H 133 H Lactic Acid Calcium Phosphorus Magnesium Direct Bilirubin ALT Alkaline Phosphatase Troponin T C-Reactive Protein Total Protein Albumin Triglycerides Cholesterol LDL Cholesterol Direct HDL Cholesterol Urine WBC (Auto) Urine Creatinine Urine Total Protein Vancomycin Trough Rheumatoid Factor Complement C4 Miscellaneous Test Crossmatch 10/16/16 10/17/16 10/17/16 20:48 04:24 04:24 WBC 21.4 H RBC 2.72 L Hgb 8.0 L Hct 25.2 L MCV MCH MCHC RDW 18.0 H Plt Count Lymph % (Auto) [place] % (Auto) Lymph # [place] # Seg Neutrophils % Seg Neuts % (Manual) Lymphocytes % (Manual) Monocytes % (Manual) Eosinophils % (Manual) Basophils % (Manual) Nucleated RBC % Seg Neutrophils # Seg Neutrophils # Man Lymphocytes # (Manual) Monocytes # (Manual) Eosinophils # (Manual) PT INR Fibrinogen dRVVT Confirm Interp Factor V Activity POC ABG pH 7.561 H POC ABG pCO2 24.4 L POC ABG pO2 77 L Sodium 148 H Potassium Chloride Carbon Dioxide BUN 104 H Creatinine 3.0 H Glucose 149 H POC Glucose Lactic Acid Calcium Phosphorus Magnesium Direct Bilirubin ALT Alkaline Phosphatase 138 H Troponin T C-Reactive Protein Total Protein 6.2 L Albumin 1.5 L Triglycerides Cholesterol LDL Cholesterol Direct HDL Cholesterol Urine WBC (Auto) Urine Creatinine Urine Total Protein Vancomycin Trough Rheumatoid Factor Complement C4 Miscellaneous Test Crossmatch 10/17/16 10/17/16 10/17/16 06:02 12:17 17:14 WBC RBC Hgb Hct MCV MCH MCHC RDW Plt Count Lymph % (Auto) [place] % (Auto) Lymph # [place] # Seg Neutrophils % Seg Neuts % (Manual) Lymphocytes % (Manual) Monocytes % (Manual) Eosinophils % (Manual) Basophils % (Manual) Nucleated RBC % Seg Neutrophils # Seg Neutrophils # Man Lymphocytes # (Manual) Monocytes # (Manual) Eosinophils # (Manual) PT INR Fibrinogen dRVVT Confirm Interp Factor V Activity POC ABG pH POC ABG pCO2 POC ABG pO2 Sodium Potassium Chloride Carbon Dioxide BUN Creatinine Glucose POC Glucose 170 H 167 H 126 H Lactic Acid Calcium Phosphorus Magnesium Direct Bilirubin ALT Alkaline Phosphatase Troponin T C-Reactive Protein Total Protein Albumin Triglycerides Cholesterol LDL Cholesterol Direct HDL Cholesterol Urine WBC (Auto) Urine Creatinine Urine Total Protein Vancomycin Trough Rheumatoid Factor Complement C4 Miscellaneous Test Crossmatch 10/17/16 10/18/16 10/18/16 23:17 04:00 04:00 WBC 20.7 H RBC 2.47 L Hgb 7.4 L Hct 22.9 L MCV MCH MCHC RDW 17.5 H Plt Count Lymph % (Auto) [place] % (Auto) Lymph # [place] # Seg Neutrophils % Seg Neuts % (Manual) Lymphocytes % (Manual) Monocytes % (Manual) Eosinophils % (Manual) Basophils % (Manual) Nucleated RBC % Seg Neutrophils # Seg Neutrophils # Man Lymphocytes # (Manual) Monocytes # (Manual) Eosinophils # (Manual) PT INR Fibrinogen dRVVT Confirm Interp Factor V Activity POC ABG pH POC ABG pCO2 POC ABG pO2 Sodium 149 H Potassium Chloride 107.9 H Carbon Dioxide 20 L BUN 117 H Creatinine 3.2 H Glucose 119 H POC Glucose 121 H Lactic Acid Calcium Phosphorus Magnesium Direct Bilirubin ALT Alkaline Phosphatase Troponin T C-Reactive Protein Total Protein Albumin Triglycerides Cholesterol LDL Cholesterol Direct HDL Cholesterol Urine WBC (Auto) Urine Creatinine Urine Total Protein Vancomycin Trough Rheumatoid Factor Complement C4 Miscellaneous Test Crossmatch 10/18/16 10/18/16 10/18/16 05:23 10:46 17:30 WBC RBC Hgb Hct MCV MCH MCHC RDW Plt Count Lymph % (Auto) [place] % (Auto) Lymph # [place] # Seg Neutrophils % Seg Neuts % (Manual) Lymphocytes % (Manual) Monocytes % (Manual) Eosinophils % (Manual) Basophils % (Manual) Nucleated RBC % Seg Neutrophils # Seg Neutrophils # Man Lymphocytes # (Manual) Monocytes # (Manual) Eosinophils # (Manual) PT INR Fibrinogen dRVVT Confirm Interp Factor V Activity POC ABG pH POC ABG pCO2 POC ABG pO2 Sodium Potassium Chloride Carbon Dioxide BUN Creatinine Glucose POC Glucose 119 H 155 H 124 H Lactic Acid Calcium Phosphorus Magnesium Direct Bilirubin ALT Alkaline Phosphatase Troponin T C-Reactive Protein Total Protein Albumin Triglycerides Cholesterol LDL Cholesterol Direct HDL Cholesterol Urine WBC (Auto) Urine Creatinine Urine Total Protein Vancomycin Trough Rheumatoid Factor Complement C4 Miscellaneous Test Crossmatch 10/19/16 10/19/16 10/19/16 04:00 04:00 05:25 WBC 17.4 H RBC 2.54 L Hgb 7.7 L Hct 23.6 L MCV MCH MCHC RDW 17.3 H Plt Count Lymph % (Auto) [place] % (Auto) Lymph # [place] # Seg Neutrophils % Seg Neuts % (Manual) Lymphocytes % (Manual) Monocytes % (Manual) Eosinophils % (Manual) Basophils % (Manual) Nucleated RBC % Seg Neutrophils # Seg Neutrophils # Man Lymphocytes # (Manual) Monocytes # (Manual) Eosinophils # (Manual) PT INR Fibrinogen dRVVT Confirm Interp Factor V Activity POC ABG pH POC ABG pCO2 POC ABG pO2 Sodium Potassium Chloride Carbon Dioxide BUN 72 H Creatinine 2.1 H Glucose 116 H POC Glucose 119 H Lactic Acid Calcium Phosphorus Magnesium Direct Bilirubin ALT Alkaline Phosphatase Troponin T C-Reactive Protein Total Protein Albumin Triglycerides Cholesterol LDL Cholesterol Direct HDL Cholesterol Urine WBC (Auto) Urine Creatinine Urine Total Protein Vancomycin Trough Rheumatoid Factor Complement C4 Miscellaneous Test Crossmatch 10/19/16 10/19/16 10/20/16 11:46 23:59 06:00 WBC RBC Hgb Hct MCV MCH MCHC RDW Plt Count Lymph % (Auto) [place] % (Auto) Lymph # [place] # Seg Neutrophils % Seg Neuts % (Manual) Lymphocytes % (Manual) Monocytes % (Manual) Eosinophils % (Manual) Basophils % (Manual) Nucleated RBC % Seg Neutrophils # Seg Neutrophils # Man Lymphocytes # (Manual) Monocytes # (Manual) Eosinophils # (Manual) PT INR Fibrinogen dRVVT Confirm Interp Factor V Activity POC ABG pH POC ABG pCO2 POC ABG pO2 Sodium Potassium Chloride Carbon Dioxide 17 L BUN 94 H Creatinine 2.7 H Glucose POC Glucose 116 H 117 H Lactic Acid Calcium Phosphorus Magnesium Direct Bilirubin ALT Alkaline Phosphatase Troponin T C-Reactive Protein Total Protein Albumin Triglycerides Cholesterol LDL Cholesterol Direct HDL Cholesterol Urine WBC (Auto) Urine Creatinine Urine Total Protein Vancomycin Trough Rheumatoid Factor Complement C4 Miscellaneous Test Crossmatch 10/20/16 06:00 WBC 19.7 H RBC 2.51 L Hgb 7.7 L Hct 23.5 L MCV MCH MCHC RDW 17.5 H Plt Count Lymph % (Auto) [place] % (Auto) Lymph # [place] # Seg Neutrophils % Seg Neuts % (Manual) Lymphocytes % (Manual) Monocytes % (Manual) Eosinophils % (Manual) Basophils % (Manual) Nucleated RBC % Seg Neutrophils # Seg Neutrophils # Man Lymphocytes # (Manual) Monocytes # (Manual) Eosinophils # (Manual) PT INR Fibrinogen dRVVT Confirm Interp Factor V Activity POC ABG pH POC ABG pCO2 POC ABG pO2 Sodium Potassium Chloride Carbon Dioxide BUN Creatinine Glucose POC Glucose Lactic Acid Calcium Phosphorus Magnesium Direct Bilirubin ALT Alkaline Phosphatase Troponin T C-Reactive Protein Total Protein Albumin Triglycerides Cholesterol LDL Cholesterol Direct HDL Cholesterol Urine WBC (Auto) Urine Creatinine Urine Total Protein Vancomycin Trough Rheumatoid Factor Complement C4 Miscellaneous Test Crossmatch Allied health notes reviewed: RT
--- NOTE | 2016-10-20 11:50 | Progress Note ---
Subjective Date of service: 10/20/16 Principal diagnosis: Acute resp failure on MVS; S/P Acute CVA; Acute Encephalopathy; JUANITA Interval history: NEUROLOGY PROGRESS NOTE: Hx reviewed in detail. She was admitted on 09/03 with a massive left cerebral infarct with dense left hemiparesis, aphasia, and left gaze preference. Her initial head CT did not show the infarct (as expected) but only SVID and scattered lacunes c/w her hx of hypertension. A subsequent MRI 09/08 did demonstrate a large left MCA and CARE DIRECTOR RN distribution infarcts with midline shift and with infarcts in the cerebellar hemispheres on both sides, attesting to a proximal source of these embolic infarcts. A repeat head CT on 10/03 demonstrated a new Right parietal infarct as well. Carotid ultrasound studies on 09/03 showed no hemodynamically significant stenoses, and a 2D Echo on that same date no intracardiac clot or significant valvular abn. She has been here now for six weeks, unresponsive. EXAM: She lies in bed motionless on a blow by, follows zero commands. She holds her eyelids open and has a left gaze preference, but the eyes can move to the right almost all the way rightward, albeit not on command. She will not blink on command at this time. Pupils are 4mm in diam bilaterally, and are minimally reactive to bright light stim. There is no obvious facial assymetry but no grimace is elicited on deep nox stim of all four extremities. There is not motor response to nox sitm of all four extremities. DTRs are uniformly absent, Both great toes are unresponsive to plantar stim. IMP: 1. 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 The cause for this may have been her intermittent Afib as seen on rhythm strips on 09/13, or, at such a young age, an inherited coagulopathy (eg Factor V Leiden deficiency, etc) is possible. There has been little change in her neuro status judging from the notes of Dr Nazario since 10/03. This is now the end of week six. RECC: 1. Continue current mgt. 2. See no need for further neurologic tests at this point. 3. Prognosis for meaningful neurologic recovery from her devastating impairments after six weeks is near nil. 4. Transfer to chronic care fascility when you deem her to be stable to do so. 5. Call as needed. Luis Mar MD Objective - Vital Sign Vital Signs - 12hr 10/19/16 10/20/16 10/20/16 23:30 00:00 00:30 Temperature 99.6 F Pulse Rate 121 H 116 H 109 H Pulse Rate [ 144 H From Monitor] Respiratory 34 H 31 H 30 H Rate Respiratory Rate [ Generalized] Blood Pressure 156/94 148/91 166/104 O2 Sat by Pulse 100 100 100 Oximetry 10/20/16 10/20/16 10/20/16 01:00 01:30 01:42 Temperature Pulse Rate 112 H 113 H 107 H Pulse Rate [ From Monitor] Respiratory 34 H 22 Rate Respiratory Rate [ Generalized] Blood Pressure 179/105 172/103 162/97 O2 Sat by Pulse 100 100 Oximetry 10/20/16 10/20/16 10/20/16 02:00 02:30 03:00 Temperature Pulse Rate 104 H 110 H 109 H Pulse Rate [ From Monitor] Respiratory 35 H 37 H 35 H Rate Respiratory Rate [ Generalized] Blood Pressure 157/95 172/98 158/96 O2 Sat by Pulse 100 100 98 Oximetry 10/20/16 10/20/16 10/20/16 03:13 03:15 03:30 Temperature Pulse Rate 114 H 105 H Pulse Rate [ From Monitor] Respiratory 40 H Rate Respiratory 37 H Rate [ Generalized] Blood Pressure 158/96 145/84 O2 Sat by Pulse 99 100 Oximetry 10/20/16 10/20/16 10/20/16 03:36 04:00 04:30 Temperature 100.3 F H Pulse Rate 112 H 108 H Pulse Rate [ 108 H From Monitor] Respiratory 35 H 25 H Rate Respiratory Rate [ Generalized] Blood Pressure 155/96 132/86 O2 Sat by Pulse 100 100 Oximetry 10/20/16 10/20/16 10/20/16 05:01 05:30 05:58 Temperature Pulse Rate 107 H 101 H Pulse Rate [ From Monitor] Respiratory 27 H Rate Respiratory Rate [ Generalized] Blood Pressure 171/109 158/92 146/82 O2 Sat by Pulse Oximetry 10/20/16 10/20/16 10/20/16 06:00 06:30 07:00 Temperature Pulse Rate 101 H 101 H 92 H Pulse Rate [ From Monitor] Respiratory 26 H 24 22 Rate Respiratory Rate [ Generalized] Blood Pressure 146/82 141/84 130/74 O2 Sat by Pulse 100 100 100 Oximetry 10/20/16 10/20/16 10/20/16 07:30 07:57 08:00 Temperature 98.2 F Pulse Rate 90 88 Pulse Rate [ From Monitor] Respiratory 23 18 Rate Respiratory Rate [ Generalized] Blood Pressure 123/68 124/61 O2 Sat by Pulse 100 100 Oximetry 10/20/16 10/20/16 08:05 08:30 Temperature Pulse Rate 93 H 94 H Pulse Rate [ From Monitor] Respiratory 36 H 21 Rate Respiratory Rate [ Generalized] Blood Pressure 124/61 144/77 O2 Sat by Pulse 96 97 Oximetry - Laboratory Findings CBC and BMP: 10/20/16 06:00 10/20/16 06:00 Abnormal Lab Findings: Abnormal Labs 09/03/16 09/03/16 09/03/16 12:12 15:07 16:20 WBC RBC Hgb Hct MCV MCH MCHC RDW Plt Count Lymph % (Auto) [place] % (Auto) Lymph # [place] # Seg Neutrophils % Seg Neuts % (Manual) Lymphocytes % (Manual) Monocytes % (Manual) Eosinophils % (Manual) Basophils % (Manual) Nucleated RBC % Seg Neutrophils # Seg Neutrophils # Man Lymphocytes # (Manual) Monocytes # (Manual) Eosinophils # (Manual) PT INR Fibrinogen dRVVT Confirm Interp Factor V Activity POC ABG pH 7.452 H POC ABG pCO2 POC ABG pO2 Sodium Potassium Chloride Carbon Dioxide BUN Creatinine Glucose POC Glucose 178 H Lactic Acid Calcium Phosphorus 2.20 L Magnesium 1.60 L Direct Bilirubin ALT Alkaline Phosphatase Troponin T C-Reactive Protein Total Protein Albumin Triglycerides Cholesterol LDL Cholesterol Direct HDL Cholesterol Urine WBC (Auto) Urine Creatinine Urine Total Protein Vancomycin Trough Rheumatoid Factor Complement C4 Miscellaneous Test Crossmatch 09/03/16 09/03/16 09/03/16 17:57 17:58 23:50 WBC RBC Hgb Hct MCV MCH MCHC RDW Plt Count Lymph % (Auto) [place] % (Auto) Lymph # [place] # Seg Neutrophils % Seg Neuts % (Manual) Lymphocytes % (Manual) Monocytes % (Manual) Eosinophils % (Manual) Basophils % (Manual) Nucleated RBC % Seg Neutrophils # Seg Neutrophils # Man Lymphocytes # (Manual) Monocytes # (Manual) Eosinophils # (Manual) PT INR Fibrinogen dRVVT Confirm Interp Factor V Activity POC ABG pH POC ABG pCO2 POC ABG pO2 Sodium Potassium Chloride Carbon Dioxide BUN Creatinine Glucose POC Glucose 162 H 145 H Lactic Acid Calcium Phosphorus 2.30 L Magnesium Direct Bilirubin ALT Alkaline Phosphatase Troponin T C-Reactive Protein Total Protein Albumin Triglycerides Cholesterol LDL Cholesterol Direct HDL Cholesterol Urine WBC (Auto) Urine Creatinine Urine Total Protein Vancomycin Trough Rheumatoid Factor Complement C4 Miscellaneous Test Crossmatch 09/04/16 09/04/16 09/04/16 03:31 03:31 05:42 WBC RBC Hgb 9.7 L D Hct MCV 72 L MCH 23 L MCHC RDW 17.5 H Plt Count Lymph % (Auto) 11.1 L [place] % (Auto) Lymph # [place] # Seg Neutrophils % 84.3 H Seg Neuts % (Manual) Lymphocytes % (Manual) Monocytes % (Manual) Eosinophils % (Manual) Basophils % (Manual) Nucleated RBC % Seg Neutrophils # 8.9 H Seg Neutrophils # Man Lymphocytes # (Manual) Monocytes # (Manual) Eosinophils # (Manual) PT INR Fibrinogen dRVVT Confirm Interp Factor V Activity POC ABG pH POC ABG pCO2 POC ABG pO2 Sodium 135 L Potassium 2.9 L* Chloride 97.2 L Carbon Dioxide 19 L BUN Creatinine 1.7 H Glucose 170 H POC Glucose 152 H Lactic Acid Calcium Phosphorus Magnesium Direct Bilirubin ALT Alkaline Phosphatase Troponin T C-Reactive Protein Total Protein Albumin Triglycerides 160 H Cholesterol LDL Cholesterol Direct HDL Cholesterol 31 L Urine WBC (Auto) Urine Creatinine Urine Total Protein Vancomycin Trough Rheumatoid Factor Complement C4 Miscellaneous Test Crossmatch 09/04/16 09/04/16 09/04/16 11:34 17:46 23:29 WBC RBC Hgb Hct MCV MCH MCHC RDW Plt Count Lymph % (Auto) [place] % (Auto) Lymph # [place] # Seg Neutrophils % Seg Neuts % (Manual) Lymphocytes % (Manual) Monocytes % (Manual) Eosinophils % (Manual) Basophils % (Manual) Nucleated RBC % Seg Neutrophils # Seg Neutrophils # Man Lymphocytes # (Manual) Monocytes # (Manual) Eosinophils # (Manual) PT INR Fibrinogen dRVVT Confirm Interp Factor V Activity POC ABG pH POC ABG pCO2 POC ABG pO2 Sodium Potassium Chloride Carbon Dioxide BUN Creatinine Glucose POC Glucose 165 H 210 H 139 H Lactic Acid Calcium Phosphorus Magnesium Direct Bilirubin ALT Alkaline Phosphatase Troponin T C-Reactive Protein Total Protein Albumin Triglycerides Cholesterol LDL Cholesterol Direct HDL Cholesterol Urine WBC (Auto) Urine Creatinine Urine Total Protein Vancomycin Trough Rheumatoid Factor Complement C4 Miscellaneous Test Crossmatch 09/05/16 09/05/16 09/05/16 04:05 04:05 05:38 WBC RBC Hgb Hct MCV 76 L D MCH 23 L MCHC RDW 17.8 H Plt Count Lymph % (Auto) [place] % (Auto) Lymph # [place] # Seg Neutrophils % Seg Neuts % (Manual) Lymphocytes % (Manual) Monocytes % (Manual) Eosinophils % (Manual) Basophils % (Manual) Nucleated RBC % Seg Neutrophils # Seg Neutrophils # Man Lymphocytes # (Manual) Monocytes # (Manual) Eosinophils # (Manual) PT INR Fibrinogen dRVVT Confirm Interp Factor V Activity POC ABG pH POC ABG pCO2 POC ABG pO2 Sodium 134 L Potassium Chloride Carbon Dioxide 18 L BUN Creatinine 1.8 H Glucose 192 H POC Glucose 175 H Lactic Acid Calcium Phosphorus Magnesium Direct Bilirubin ALT Alkaline Phosphatase Troponin T C-Reactive Protein Total Protein Albumin Triglycerides Cholesterol LDL Cholesterol Direct HDL Cholesterol Urine WBC (Auto) Urine Creatinine Urine Total Protein Vancomycin Trough Rheumatoid Factor Complement C4 Miscellaneous Test Crossmatch 09/05/16 09/05/16 09/05/16 11:38 17:48 23:22 WBC RBC Hgb Hct MCV MCH MCHC RDW Plt Count Lymph % (Auto) [place] % (Auto) Lymph # [place] # Seg Neutrophils % Seg Neuts % (Manual) Lymphocytes % (Manual) Monocytes % (Manual) Eosinophils % (Manual) Basophils % (Manual) Nucleated RBC % Seg Neutrophils # Seg Neutrophils # Man Lymphocytes # (Manual) Monocytes # (Manual) Eosinophils # (Manual) PT INR Fibrinogen dRVVT Confirm Interp Factor V Activity POC ABG pH POC ABG pCO2 POC ABG pO2 Sodium Potassium Chloride Carbon Dioxide BUN Creatinine Glucose POC Glucose 164 H 186 H 195 H Lactic Acid Calcium Phosphorus Magnesium Direct Bilirubin ALT Alkaline Phosphatase Troponin T C-Reactive Protein Total Protein Albumin Triglycerides Cholesterol LDL Cholesterol Direct HDL Cholesterol Urine WBC (Auto) Urine Creatinine Urine Total Protein Vancomycin Trough Rheumatoid Factor Complement C4 Miscellaneous Test Crossmatch 09/06/16 09/06/16 09/06/16 04:12 05:59 07:32 WBC RBC Hgb Hct MCV MCH MCHC RDW Plt Count Lymph % (Auto) [place] % (Auto) Lymph # [place] # Seg Neutrophils % Seg Neuts % (Manual) Lymphocytes % (Manual) Monocytes % (Manual) Eosinophils % (Manual) Basophils % (Manual) Nucleated RBC % Seg Neutrophils # Seg Neutrophils # Man Lymphocytes # (Manual) Monocytes # (Manual) Eosinophils # (Manual) PT INR Fibrinogen dRVVT Confirm Interp Factor V Activity POC ABG pH 7.514 H POC ABG pCO2 29.1 L POC ABG pO2 72 L Sodium 133 L Potassium 3.4 L Chloride 94.9 L Carbon Dioxide 19 L BUN 30 H Creatinine 2.1 H Glucose 139 H POC Glucose 146 H Lactic Acid Calcium Phosphorus Magnesium Direct Bilirubin ALT Alkaline Phosphatase Troponin T C-Reactive Protein Total Protein Albumin Triglycerides Cholesterol LDL Cholesterol Direct HDL Cholesterol Urine WBC (Auto) Urine Creatinine Urine Total Protein Vancomycin Trough Rheumatoid Factor Complement C4 Miscellaneous Test Crossmatch 09/06/16 09/06/16 09/06/16 11:57 17:58 19:02 WBC RBC Hgb Hct MCV MCH MCHC RDW Plt Count Lymph % (Auto) [place] % (Auto) Lymph # [place] # Seg Neutrophils % Seg Neuts % (Manual) Lymphocytes % (Manual) Monocytes % (Manual) Eosinophils % (Manual) Basophils % (Manual) Nucleated RBC % Seg Neutrophils # Seg Neutrophils # Man Lymphocytes # (Manual) Monocytes # (Manual) Eosinophils # (Manual) PT INR Fibrinogen dRVVT Confirm Interp Factor V Activity POC ABG pH 7.465 H POC ABG pCO2 32.0 L POC ABG pO2 Sodium Potassium Chloride Carbon Dioxide BUN Creatinine Glucose POC Glucose 165 H 160 H Lactic Acid Calcium Phosphorus Magnesium Direct Bilirubin ALT Alkaline Phosphatase Troponin T C-Reactive Protein Total Protein Albumin Triglycerides Cholesterol LDL Cholesterol Direct HDL Cholesterol Urine WBC (Auto) Urine Creatinine Urine Total Protein Vancomycin Trough Rheumatoid Factor Complement C4 Miscellaneous Test Crossmatch 09/06/16 09/07/16 09/07/16 23:45 02:47 02:47 WBC RBC Hgb Hct MCV MCH MCHC RDW Plt Count Lymph % (Auto) [place] % (Auto) Lymph # [place] # Seg Neutrophils % Seg Neuts % (Manual) Lymphocytes % (Manual) Monocytes % (Manual) Eosinophils % (Manual) Basophils % (Manual) Nucleated RBC % Seg Neutrophils # Seg Neutrophils # Man Lymphocytes # (Manual) Monocytes # (Manual) Eosinophils # (Manual) PT INR Fibrinogen dRVVT Confirm Interp Factor V Activity POC ABG pH POC ABG pCO2 POC ABG pO2 Sodium Potassium Chloride Carbon Dioxide BUN Creatinine Glucose POC Glucose 204 H Lactic Acid Calcium Phosphorus Magnesium Direct Bilirubin ALT Alkaline Phosphatase Troponin T C-Reactive Protein Total Protein Albumin Triglycerides Cholesterol LDL Cholesterol Direct HDL Cholesterol Urine WBC (Auto) 68.0 H Urine Creatinine 106.1 H Urine Total Protein Vancomycin Trough Rheumatoid Factor Complement C4 Miscellaneous Test Crossmatch 09/07/16 09/07/16 09/07/16 04:50 06:19 06:39 WBC RBC Hgb Hct MCV MCH MCHC RDW Plt Count Lymph % (Auto) [place] % (Auto) Lymph # [place] # Seg Neutrophils % Seg Neuts % (Manual) Lymphocytes % (Manual) Monocytes % (Manual) Eosinophils % (Manual) Basophils % (Manual) Nucleated RBC % Seg Neutrophils # Seg Neutrophils # Man Lymphocytes # (Manual) Monocytes # (Manual) Eosinophils # (Manual) PT INR Fibrinogen dRVVT Confirm Interp Factor V Activity POC ABG pH 7.457 H POC ABG pCO2 32.1 L POC ABG pO2 76 L Sodium 132 L Potassium Chloride 94.7 L Carbon Dioxide BUN 53 H Creatinine 2.9 H Glucose 151 H POC Glucose 149 H Lactic Acid Calcium Phosphorus Magnesium Direct Bilirubin ALT Alkaline Phosphatase Troponin T C-Reactive Protein Total Protein Albumin Triglycerides Cholesterol LDL Cholesterol Direct HDL Cholesterol Urine WBC (Auto) Urine Creatinine Urine Total Protein Vancomycin Trough Rheumatoid Factor Complement C4 Miscellaneous Test Crossmatch 09/07/16 09/07/16 09/07/16 09:20 11:43 11:43 WBC 19.4 H RBC Hgb 8.3 L Hct 26.4 L D MCV 72 L D MCH 22 L MCHC RDW 17.9 H Plt Count Lymph % (Auto) 8.5 L [place] % (Auto) Lymph # [place] # 1.0 H Seg Neutrophils % 85.8 H Seg Neuts % (Manual) Lymphocytes % (Manual) Monocytes % (Manual) Eosinophils % (Manual) Basophils % (Manual) Nucleated RBC % Seg Neutrophils # 16.6 H Seg Neutrophils # Man Lymphocytes # (Manual) Monocytes # (Manual) Eosinophils # (Manual) PT INR Fibrinogen dRVVT Confirm Interp Factor V Activity POC ABG pH POC ABG pCO2 POC ABG pO2 Sodium 134 L Potassium Chloride 97.2 L Carbon Dioxide 20 L BUN 58 H Creatinine 2.9 H Glucose 147 H POC Glucose Lactic Acid Calcium Phosphorus 2.40 L Magnesium 2.40 H Direct Bilirubin ALT Alkaline Phosphatase Troponin T C-Reactive Protein Total Protein 5.8 L Albumin 2.2 L Triglycerides Cholesterol LDL Cholesterol Direct HDL Cholesterol Urine WBC (Auto) Urine Creatinine Urine Total Protein Vancomycin Trough Rheumatoid Factor Complement C4 58 H Miscellaneous Test Crossmatch 09/07/16 09/07/16 09/07/16 11:50 16:00 17:31 WBC RBC Hgb Hct MCV MCH MCHC RDW Plt Count Lymph % (Auto) [place] % (Auto) Lymph # [place] # Seg Neutrophils % Seg Neuts % (Manual) Lymphocytes % (Manual) Monocytes % (Manual) Eosinophils % (Manual) Basophils % (Manual) Nucleated RBC % Seg Neutrophils # Seg Neutrophils # Man Lymphocytes # (Manual) Monocytes # (Manual) Eosinophils # (Manual) PT INR Fibrinogen dRVVT Confirm Interp Factor V Activity POC ABG pH POC ABG pCO2 POC ABG pO2 158 H Sodium Potassium Chloride Carbon Dioxide BUN Creatinine Glucose POC Glucose 175 H Lactic Acid Calcium Phosphorus Magnesium Direct Bilirubin ALT Alkaline Phosphatase Troponin T C-Reactive Protein Total Protein Albumin Triglycerides Cholesterol LDL Cholesterol Direct HDL Cholesterol Urine WBC (Auto) Urine Creatinine 66.3 H Urine Total Protein Vancomycin Trough Rheumatoid Factor Complement C4 Miscellaneous Test Crossmatch 09/07/16 09/08/16 09/08/16 23:50 05:46 06:18 WBC 17.8 H RBC 3.58 L Hgb 8.1 L Hct 25.5 L MCV 71 L MCH 23 L MCHC RDW 18.4 H Plt Count Lymph % (Auto) [place] % (Auto) Lymph # [place] # Seg Neutrophils % Seg Neuts % (Manual) 92.0 H Lymphocytes % (Manual) 6.0 L Monocytes % (Manual) Eosinophils % (Manual) Basophils % (Manual) Nucleated RBC % Seg Neutrophils # Seg Neutrophils # Man 16.4 H Lymphocytes # (Manual) 1.1 L Monocytes # (Manual) Eosinophils # (Manual) PT INR Fibrinogen dRVVT Confirm Interp Factor V Activity POC ABG pH POC ABG pCO2 34.3 L POC ABG pO2 71 L Sodium Potassium Chloride Carbon Dioxide BUN Creatinine Glucose POC Glucose 216 H Lactic Acid Calcium Phosphorus Magnesium Direct Bilirubin ALT Alkaline Phosphatase Troponin T C-Reactive Protein Total Protein Albumin Triglycerides Cholesterol LDL Cholesterol Direct HDL Cholesterol Urine WBC (Auto) Urine Creatinine Urine Total Protein Vancomycin Trough Rheumatoid Factor Complement C4 Miscellaneous Test Crossmatch 09/08/16 09/08/16 09/08/16 06:18 06:51 10:55 WBC RBC Hgb Hct MCV MCH MCHC RDW Plt Count Lymph % (Auto) [place] % (Auto) Lymph # [place] # Seg Neutrophils % Seg Neuts % (Manual) Lymphocytes % (Manual) Monocytes % (Manual) Eosinophils % (Manual) Basophils % (Manual) Nucleated RBC % Seg Neutrophils # Seg Neutrophils # Man Lymphocytes # (Manual) Monocytes # (Manual) Eosinophils # (Manual) PT INR Fibrinogen dRVVT Confirm Interp Factor V Activity POC ABG pH POC ABG pCO2 POC ABG pO2 Sodium 133 L Potassium Chloride 96.9 L Carbon Dioxide 20 L BUN 63 H Creatinine 2.7 H Glucose 195 H POC Glucose 204 H 169 H Lactic Acid Calcium Phosphorus Magnesium Direct Bilirubin ALT Alkaline Phosphatase Troponin T C-Reactive Protein Total Protein Albumin Triglycerides Cholesterol LDL Cholesterol Direct HDL Cholesterol Urine WBC (Auto) Urine Creatinine Urine Total Protein Vancomycin Trough Rheumatoid Factor Complement C4 Miscellaneous Test Crossmatch 09/08/16 09/08/16 09/08/16 11:48 11:48 11:48 WBC RBC Hgb Hct MCV MCH MCHC RDW Plt Count Lymph % (Auto) [place] % (Auto) Lymph # [place] # Seg Neutrophils % Seg Neuts % (Manual) Lymphocytes % (Manual) Monocytes % (Manual) Eosinophils % (Manual) Basophils % (Manual) Nucleated RBC % Seg Neutrophils # Seg Neutrophils # Man Lymphocytes # (Manual) Monocytes # (Manual) Eosinophils # (Manual) PT INR Fibrinogen 750 H dRVVT Confirm Interp Factor V Activity POC ABG pH POC ABG pCO2 POC ABG pO2 Sodium Potassium Chloride Carbon Dioxide BUN Creatinine Glucose POC Glucose Lactic Acid Calcium Phosphorus Magnesium Direct Bilirubin ALT Alkaline Phosphatase Troponin T C-Reactive Protein 15.70 H Total Protein Albumin Triglycerides Cholesterol LDL Cholesterol Direct HDL Cholesterol Urine WBC (Auto) Urine Creatinine Urine Total Protein Vancomycin Trough Rheumatoid Factor 24 H Complement C4 Miscellaneous Test Crossmatch 09/08/16 09/08/16 09/09/16 15:35 18:25 00:24 WBC RBC Hgb Hct MCV MCH MCHC RDW Plt Count Lymph % (Auto) [place] % (Auto) Lymph # [place] # Seg Neutrophils % Seg Neuts % (Manual) Lymphocytes % (Manual) Monocytes % (Manual) Eosinophils % (Manual) Basophils % (Manual) Nucleated RBC % Seg Neutrophils # Seg Neutrophils # Man Lymphocytes # (Manual) Monocytes # (Manual) Eosinophils # (Manual) PT INR Fibrinogen dRVVT Confirm Interp Factor V Activity 182 H POC ABG pH POC ABG pCO2 POC ABG pO2 Sodium Potassium Chloride Carbon Dioxide BUN Creatinine Glucose POC Glucose 184 H 216 H Lactic Acid Calcium Phosphorus Magnesium Direct Bilirubin ALT Alkaline Phosphatase Troponin T C-Reactive Protein Total Protein Albumin Triglycerides Cholesterol LDL Cholesterol Direct HDL Cholesterol Urine WBC (Auto) Urine Creatinine Urine Total Protein Vancomycin Trough Rheumatoid Factor Complement C4 Miscellaneous Test Crossmatch 09/09/16 09/09/16 09/09/16 03:00 03:00 04:04 WBC 27.9 H RBC Hgb 8.7 L Hct 28.1 L MCV 72 L MCH 22 L MCHC RDW 18.4 H Plt Count 485 H Lymph % (Auto) [place] % (Auto) Lymph # [place] # Seg Neutrophils % Seg Neuts % (Manual) 77.0 H Lymphocytes % (Manual) 9.0 L Monocytes % (Manual) Eosinophils % (Manual) Basophils % (Manual) Nucleated RBC % Seg Neutrophils # Seg Neutrophils # Man 21.5 H Lymphocytes # (Manual) Monocytes # (Manual) 2.0 H Eosinophils # (Manual) PT INR Fibrinogen dRVVT Confirm Interp Factor V Activity POC ABG pH POC ABG pCO2 POC ABG pO2 121 H Sodium 135 L Potassium Chloride 96.3 L Carbon Dioxide 21 L BUN 83 H Creatinine 3.0 H Glucose 135 H POC Glucose Lactic Acid Calcium Phosphorus Magnesium Direct Bilirubin ALT Alkaline Phosphatase Troponin T C-Reactive Protein Total Protein Albumin Triglycerides Cholesterol LDL Cholesterol Direct HDL Cholesterol Urine WBC (Auto) Urine Creatinine Urine Total Protein Vancomycin Trough Rheumatoid Factor Complement C4 Miscellaneous Test Crossmatch 09/09/16 09/09/16 09/09/16 05:41 11:55 14:13 WBC RBC Hgb Hct MCV MCH MCHC RDW Plt Count Lymph % (Auto) [place] % (Auto) Lymph # [place] # Seg Neutrophils % Seg Neuts % (Manual) Lymphocytes % (Manual) Monocytes % (Manual) Eosinophils % (Manual) Basophils % (Manual) Nucleated RBC % Seg Neutrophils # Seg Neutrophils # Man Lymphocytes # (Manual) Monocytes # (Manual) Eosinophils # (Manual) PT INR Fibrinogen dRVVT Confirm Interp Factor V Activity POC ABG pH POC ABG pCO2 POC ABG pO2 Sodium Potassium Chloride Carbon Dioxide BUN Creatinine Glucose POC Glucose 155 H 186 H Lactic Acid Calcium Phosphorus Magnesium Direct Bilirubin ALT Alkaline Phosphatase Troponin T C-Reactive Protein Total Protein Albumin Triglycerides Cholesterol LDL Cholesterol Direct HDL Cholesterol Urine WBC (Auto) 25.0 H Urine Creatinine Urine Total Protein Vancomycin Trough Rheumatoid Factor Complement C4 Miscellaneous Test Crossmatch 09/09/16 09/09/16 09/10/16 17:33 23:13 05:09 WBC RBC Hgb Hct MCV MCH MCHC RDW Plt Count Lymph % (Auto) [place] % (Auto) Lymph # [place] # Seg Neutrophils % Seg Neuts % (Manual) Lymphocytes % (Manual) Monocytes % (Manual) Eosinophils % (Manual) Basophils % (Manual) Nucleated RBC % Seg Neutrophils # Seg Neutrophils # Man Lymphocytes # (Manual) Monocytes # (Manual) Eosinophils # (Manual) PT INR Fibrinogen dRVVT Confirm Interp Factor V Activity POC ABG pH POC ABG pCO2 POC ABG pO2 74 L Sodium Potassium Chloride Carbon Dioxide BUN Creatinine Glucose POC Glucose 211 H 215 H Lactic Acid Calcium Phosphorus Magnesium Direct Bilirubin ALT Alkaline Phosphatase Troponin T C-Reactive Protein Total Protein Albumin Triglycerides Cholesterol LDL Cholesterol Direct HDL Cholesterol Urine WBC (Auto) Urine Creatinine Urine Total Protein Vancomycin Trough Rheumatoid Factor Complement C4 Miscellaneous Test Crossmatch 09/10/16 09/10/16 09/10/16 05:17 05:17 11:31 WBC 15.8 H RBC 3.25 L Hgb 7.3 L Hct 22.9 L MCV 71 L MCH 23 L MCHC RDW 18.4 H Plt Count Lymph % (Auto) [place] % (Auto) Lymph # [place] # Seg Neutrophils % Seg Neuts % (Manual) 91.0 H Lymphocytes % (Manual) 4.0 L Monocytes % (Manual) Eosinophils % (Manual) Basophils % (Manual) Nucleated RBC % Seg Neutrophils # Seg Neutrophils # Man 14.4 H Lymphocytes # (Manual) 0.6 L Monocytes # (Manual) Eosinophils # (Manual) PT INR Fibrinogen dRVVT Confirm Interp Factor V Activity POC ABG pH POC ABG pCO2 POC ABG pO2 Sodium Potassium Chloride Carbon Dioxide 21 L BUN 93 H Creatinine 2.9 H Glucose 146 H POC Glucose 188 H Lactic Acid Calcium 8.1 L Phosphorus Magnesium Direct Bilirubin ALT Alkaline Phosphatase Troponin T C-Reactive Protein Total Protein Albumin Triglycerides Cholesterol LDL Cholesterol Direct HDL Cholesterol Urine WBC (Auto) Urine Creatinine Urine Total Protein Vancomycin Trough Rheumatoid Factor Complement C4 Miscellaneous Test Crossmatch 09/10/16 09/10/16 09/10/16 13:17 17:20 23:32 WBC RBC Hgb Hct MCV MCH MCHC RDW Plt Count Lymph % (Auto) [place] % (Auto) Lymph # [place] # Seg Neutrophils % Seg Neuts % (Manual) Lymphocytes % (Manual) Monocytes % (Manual) Eosinophils % (Manual) Basophils % (Manual) Nucleated RBC % Seg Neutrophils # Seg Neutrophils # Man Lymphocytes # (Manual) Monocytes # (Manual) Eosinophils # (Manual) PT INR Fibrinogen dRVVT Confirm Interp Factor V Activity POC ABG pH POC ABG pCO2 POC ABG pO2 Sodium Potassium Chloride Carbon Dioxide BUN Creatinine Glucose POC Glucose 199 H 186 H Lactic Acid Calcium Phosphorus Magnesium Direct Bilirubin ALT Alkaline Phosphatase Troponin T C-Reactive Protein Total Protein Albumin Triglycerides Cholesterol LDL Cholesterol Direct HDL Cholesterol Urine WBC (Auto) Urine Creatinine Urine Total Protein Vancomycin Trough Rheumatoid Factor Complement C4 Miscellaneous Test Crossmatch See Detail 09/11/16 09/11/16 09/11/16 05:10 05:10 05:17 WBC 28.4 H RBC Hgb 9.2 L Hct 29.3 L D MCV 73 L MCH 23 L MCHC RDW 18.9 H Plt Count 452 H Lymph % (Auto) [place] % (Auto) Lymph # [place] # Seg Neutrophils % Seg Neuts % (Manual) 89.5 H Lymphocytes % (Manual) 2.0 L Monocytes % (Manual) Eosinophils % (Manual) Basophils % (Manual) Nucleated RBC % Seg Neutrophils # Seg Neutrophils # Man 25.4 H Lymphocytes # (Manual) 0.6 L Monocytes # (Manual) 1.3 H Eosinophils # (Manual) PT INR Fibrinogen dRVVT Confirm Interp Factor V Activity POC ABG pH POC ABG pCO2 POC ABG pO2 Sodium 136 L Potassium Chloride Carbon Dioxide 18 L BUN 107 H Creatinine 2.6 H Glucose 187 H POC Glucose 230 H Lactic Acid Calcium 8.3 L Phosphorus Magnesium Direct Bilirubin ALT Alkaline Phosphatase Troponin T C-Reactive Protein Total Protein Albumin Triglycerides Cholesterol LDL Cholesterol Direct HDL Cholesterol Urine WBC (Auto) Urine Creatinine Urine Total Protein Vancomycin Trough Rheumatoid Factor Complement C4 Miscellaneous Test Crossmatch 09/11/16 09/11/16 09/11/16 05:55 12:02 17:32 WBC RBC Hgb Hct MCV MCH MCHC RDW Plt Count Lymph % (Auto) [place] % (Auto) Lymph # [place] # Seg Neutrophils % Seg Neuts % (Manual) Lymphocytes % (Manual) Monocytes % (Manual) Eosinophils % (Manual) Basophils % (Manual) Nucleated RBC % Seg Neutrophils # Seg Neutrophils # Man Lymphocytes # (Manual) Monocytes # (Manual) Eosinophils # (Manual) PT INR Fibrinogen dRVVT Confirm Interp Factor V Activity POC ABG pH POC ABG pCO2 33.8 L POC ABG pO2 Sodium Potassium Chloride Carbon Dioxide BUN Creatinine Glucose POC Glucose 191 H 239 H Lactic Acid Calcium Phosphorus Magnesium Direct Bilirubin ALT Alkaline Phosphatase Troponin T C-Reactive Protein Total Protein Albumin Triglycerides Cholesterol LDL Cholesterol Direct HDL Cholesterol Urine WBC (Auto) Urine Creatinine Urine Total Protein Vancomycin Trough Rheumatoid Factor Complement C4 Miscellaneous Test Crossmatch 09/11/16 09/12/16 09/12/16 23:52 05:09 05:32 WBC RBC Hgb Hct MCV MCH MCHC RDW Plt Count Lymph % (Auto) [place] % (Auto) Lymph # [place] # Seg Neutrophils % Seg Neuts % (Manual) Lymphocytes % (Manual) Monocytes % (Manual) Eosinophils % (Manual) Basophils % (Manual) Nucleated RBC % Seg Neutrophils # Seg Neutrophils # Man Lymphocytes # (Manual) Monocytes # (Manual) Eosinophils # (Manual) PT INR Fibrinogen dRVVT Confirm Interp Factor V Activity POC ABG pH POC ABG pCO2 34.6 L POC ABG pO2 Sodium Potassium Chloride Carbon Dioxide BUN Creatinine Glucose POC Glucose 265 H 184 H Lactic Acid Calcium Phosphorus Magnesium Direct Bilirubin ALT Alkaline Phosphatase Troponin T C-Reactive Protein Total Protein Albumin Triglycerides Cholesterol LDL Cholesterol Direct HDL Cholesterol Urine WBC (Auto) Urine Creatinine Urine Total Protein Vancomycin Trough Rheumatoid Factor Complement C4 Miscellaneous Test Crossmatch 09/12/16 09/12/16 09/12/16 06:45 06:45 07:22 WBC 31.7 H RBC 3.54 L Hgb 8.3 L Hct 25.9 L MCV 73 L MCH 23 L MCHC RDW 18.9 H Plt Count Lymph % (Auto) [place] % (Auto) Lymph # [place] # Seg Neutrophils % Seg Neuts % (Manual) 88.5 H Lymphocytes % (Manual) 4.5 L Monocytes % (Manual) Eosinophils % (Manual) Basophils % (Manual) Nucleated RBC % Seg Neutrophils # Seg Neutrophils # Man 28.1 H Lymphocytes # (Manual) Monocytes # (Manual) 1.0 H Eosinophils # (Manual) PT INR Fibrinogen dRVVT Confirm Interp Factor V Activity POC ABG pH POC ABG pCO2 POC ABG pO2 Sodium Potassium Chloride Carbon Dioxide 20 L BUN 115 H Creatinine 2.7 H Glucose 165 H POC Glucose Lactic Acid Calcium 8.0 L Phosphorus Magnesium Direct Bilirubin ALT Alkaline Phosphatase Troponin T C-Reactive Protein Total Protein Albumin Triglycerides 217 H Cholesterol LDL Cholesterol Direct HDL Cholesterol Urine WBC (Auto) Urine Creatinine Urine Total Protein Vancomycin Trough Rheumatoid Factor Complement C4 Miscellaneous Test Crossmatch 09/12/16 09/12/16 09/12/16 07:22 09:59 12:21 WBC RBC Hgb Hct MCV MCH MCHC RDW Plt Count Lymph % (Auto) [place] % (Auto) Lymph # [place] # Seg Neutrophils % Seg Neuts % (Manual) Lymphocytes % (Manual) Monocytes % (Manual) Eosinophils % (Manual) Basophils % (Manual) Nucleated RBC % Seg Neutrophils # Seg Neutrophils # Man Lymphocytes # (Manual) Monocytes # (Manual) Eosinophils # (Manual) PT INR Fibrinogen dRVVT Confirm Interp Positive H Factor V Activity POC ABG pH POC ABG pCO2 POC ABG pO2 Sodium Potassium Chloride Carbon Dioxide BUN Creatinine Glucose POC Glucose 224 H Lactic Acid Calcium Phosphorus Magnesium Direct Bilirubin ALT Alkaline Phosphatase Troponin T C-Reactive Protein 1.70 H Total Protein Albumin Triglycerides Cholesterol LDL Cholesterol Direct HDL Cholesterol Urine WBC (Auto) Urine Creatinine Urine Total Protein Vancomycin Trough Rheumatoid Factor Complement C4 Miscellaneous Test Crossmatch 09/12/16 09/12/16 09/13/16 16:51 23:28 04:00 WBC 45.0 H* RBC Hgb 9.4 L Hct MCV 75 L MCH 23 L MCHC RDW 19.0 H Plt Count 470 H Lymph % (Auto) [place] % (Auto) Lymph # [place] # Seg Neutrophils % Seg Neuts % (Manual) 89.0 H Lymphocytes % (Manual) 5.0 L Monocytes % (Manual) Eosinophils % (Manual) Basophils % (Manual) Nucleated RBC % Seg Neutrophils # Seg Neutrophils # Man 40.1 H Lymphocytes # (Manual) Monocytes # (Manual) Eosinophils # (Manual) PT INR Fibrinogen dRVVT Confirm Interp Factor V Activity POC ABG pH POC ABG pCO2 POC ABG pO2 Sodium Potassium Chloride Carbon Dioxide BUN Creatinine Glucose POC Glucose 169 H 150 H Lactic Acid Calcium Phosphorus Magnesium Direct Bilirubin ALT Alkaline Phosphatase Troponin T C-Reactive Protein Total Protein Albumin Triglycerides Cholesterol LDL Cholesterol Direct HDL Cholesterol Urine WBC (Auto) Urine Creatinine Urine Total Protein Vancomycin Trough Rheumatoid Factor Complement C4 Miscellaneous Test Crossmatch 09/13/16 09/13/16 09/13/16 04:00 11:26 17:31 WBC RBC Hgb Hct MCV MCH MCHC RDW Plt Count Lymph % (Auto) [place] % (Auto) Lymph # [place] # Seg Neutrophils % Seg Neuts % (Manual) Lymphocytes % (Manual) Monocytes % (Manual) Eosinophils % (Manual) Basophils % (Manual) Nucleated RBC % Seg Neutrophils # Seg Neutrophils # Man Lymphocytes # (Manual) Monocytes # (Manual) Eosinophils # (Manual) PT INR Fibrinogen dRVVT Confirm Interp Factor V Activity POC ABG pH POC ABG pCO2 POC ABG pO2 Sodium Potassium Chloride Carbon Dioxide 20 L BUN 116 H Creatinine 3.0 H Glucose 172 H POC Glucose 140 H 183 H Lactic Acid Calcium Phosphorus Magnesium Direct Bilirubin ALT Alkaline Phosphatase Troponin T C-Reactive Protein Total Protein 6.2 L Albumin 2.9 L Triglycerides Cholesterol LDL Cholesterol Direct HDL Cholesterol Urine WBC (Auto) Urine Creatinine Urine Total Protein Vancomycin Trough Rheumatoid Factor Complement C4 Miscellaneous Test Crossmatch 09/13/16 09/14/16 09/14/16 23:23 04:06 04:07 WBC 29.4 H RBC Hgb 8.9 L Hct 27.3 L MCV 75 L MCH 24 L MCHC RDW 19.1 H Plt Count Lymph % (Auto) [place] % (Auto) Lymph # [place] # Seg Neutrophils % Seg Neuts % (Manual) 84.0 H Lymphocytes % (Manual) 6.0 L Monocytes % (Manual) 9.0 H Eosinophils % (Manual) Basophils % (Manual) Nucleated RBC % Seg Neutrophils # Seg Neutrophils # Man 24.7 H Lymphocytes # (Manual) Monocytes # (Manual) 2.6 H Eosinophils # (Manual) PT INR Fibrinogen dRVVT Confirm Interp Factor V Activity POC ABG pH 7.342 L POC ABG pCO2 POC ABG pO2 116 H Sodium Potassium Chloride Carbon Dioxide BUN Creatinine Glucose POC Glucose 154 H Lactic Acid Calcium Phosphorus Magnesium Direct Bilirubin ALT Alkaline Phosphatase Troponin T C-Reactive Protein Total Protein Albumin Triglycerides Cholesterol LDL Cholesterol Direct HDL Cholesterol Urine WBC (Auto) Urine Creatinine Urine Total Protein Vancomycin Trough Rheumatoid Factor Complement C4 Miscellaneous Test Crossmatch 09/14/16 09/14/16 09/14/16 04:07 05:29 12:19 WBC RBC Hgb Hct MCV MCH MCHC RDW Plt Count Lymph % (Auto) [place] % (Auto) Lymph # [place] # Seg Neutrophils % Seg Neuts % (Manual) Lymphocytes % (Manual) Monocytes % (Manual) Eosinophils % (Manual) Basophils % (Manual) Nucleated RBC % Seg Neutrophils # Seg Neutrophils # Man Lymphocytes # (Manual) Monocytes # (Manual) Eosinophils # (Manual) PT INR Fibrinogen dRVVT Confirm Interp Factor V Activity POC ABG pH POC ABG pCO2 POC ABG pO2 Sodium 136 L Potassium Chloride Carbon Dioxide 18 L BUN 121 H Creatinine 2.8 H Glucose 214 H POC Glucose 239 H 181 H Lactic Acid Calcium Phosphorus Magnesium Direct Bilirubin ALT Alkaline Phosphatase Troponin T C-Reactive Protein Total Protein Albumin Triglycerides Cholesterol LDL Cholesterol Direct HDL Cholesterol Urine WBC (Auto) Urine Creatinine Urine Total Protein Vancomycin Trough Rheumatoid Factor Complement C4 Miscellaneous Test Crossmatch 09/14/16 09/14/16 09/15/16 18:12 23:37 05:00 WBC 26.1 H RBC 3.05 L Hgb 7.2 L Hct 22.9 L MCV 75 L MCH 24 L MCHC RDW 19.0 H Plt Count Lymph % (Auto) [place] % (Auto) Lymph # [place] # Seg Neutrophils % Seg Neuts % (Manual) Lymphocytes % (Manual) Monocytes % (Manual) Eosinophils % (Manual) Basophils % (Manual) Nucleated RBC % Seg Neutrophils # Seg Neutrophils # Man Lymphocytes # (Manual) Monocytes # (Manual) Eosinophils # (Manual) PT INR Fibrinogen dRVVT Confirm Interp Factor V Activity POC ABG pH POC ABG pCO2 POC ABG pO2 Sodium Potassium Chloride Carbon Dioxide BUN Creatinine Glucose POC Glucose 266 H 154 H Lactic Acid Calcium Phosphorus Magnesium Direct Bilirubin ALT Alkaline Phosphatase Troponin T C-Reactive Protein Total Protein Albumin Triglycerides Cholesterol LDL Cholesterol Direct HDL Cholesterol Urine WBC (Auto) Urine Creatinine Urine Total Protein Vancomycin Trough Rheumatoid Factor Complement C4 Miscellaneous Test Crossmatch 09/15/16 09/15/16 09/15/16 05:00 05:17 12:45 WBC RBC Hgb Hct MCV MCH MCHC RDW Plt Count Lymph % (Auto) [place] % (Auto) Lymph # [place] # Seg Neutrophils % Seg Neuts % (Manual) Lymphocytes % (Manual) Monocytes % (Manual) Eosinophils % (Manual) Basophils % (Manual) Nucleated RBC % Seg Neutrophils # Seg Neutrophils # Man Lymphocytes # (Manual) Monocytes # (Manual) Eosinophils # (Manual) PT INR Fibrinogen dRVVT Confirm Interp Factor V Activity POC ABG pH POC ABG pCO2 POC ABG pO2 Sodium Potassium 5.2 H Chloride Carbon Dioxide 18 L BUN 139 H Creatinine 3.7 H Glucose 227 H POC Glucose 226 H 244 H Lactic Acid Calcium 8.3 L Phosphorus Magnesium Direct Bilirubin ALT Alkaline Phosphatase Troponin T C-Reactive Protein Total Protein Albumin Triglycerides Cholesterol LDL Cholesterol Direct HDL Cholesterol Urine WBC (Auto) Urine Creatinine Urine Total Protein Vancomycin Trough Rheumatoid Factor Complement C4 Miscellaneous Test Crossmatch 09/15/16 09/15/16 09/15/16 14:32 17:33 23:35 WBC RBC Hgb Hct MCV MCH MCHC RDW Plt Count Lymph % (Auto) [place] % (Auto) Lymph # [place] # Seg Neutrophils % Seg Neuts % (Manual) Lymphocytes % (Manual) Monocytes % (Manual) Eosinophils % (Manual) Basophils % (Manual) Nucleated RBC % Seg Neutrophils # Seg Neutrophils # Man Lymphocytes # (Manual) Monocytes # (Manual) Eosinophils # (Manual) PT INR Fibrinogen dRVVT Confirm Interp Factor V Activity POC ABG pH POC ABG pCO2 27.7 L POC ABG pO2 120 H Sodium Potassium Chloride Carbon Dioxide BUN Creatinine Glucose POC Glucose 232 H 167 H Lactic Acid Calcium Phosphorus Magnesium Direct Bilirubin ALT Alkaline Phosphatase Troponin T C-Reactive Protein Total Protein Albumin Triglycerides Cholesterol LDL Cholesterol Direct HDL Cholesterol Urine WBC (Auto) Urine Creatinine Urine Total Protein Vancomycin Trough Rheumatoid Factor Complement C4 Miscellaneous Test Crossmatch 09/16/16 09/16/16 09/16/16 03:58 10:27 10:27 WBC 19.0 H RBC 2.77 L Hgb 6.5 L Hct 20.9 L MCV 76 L MCH 23 L MCHC RDW 19.3 H Plt Count Lymph % (Auto) 11.0 L [place] % (Auto) Lymph # [place] # 1.1 H Seg Neutrophils % 82.5 H Seg Neuts % (Manual) Lymphocytes % (Manual) Monocytes % (Manual) Eosinophils % (Manual) Basophils % (Manual) Nucleated RBC % Seg Neutrophils # 15.7 H Seg Neutrophils # Man Lymphocytes # (Manual) Monocytes # (Manual) Eosinophils # (Manual) PT INR Fibrinogen dRVVT Confirm Interp Factor V Activity POC ABG pH POC ABG pCO2 POC ABG pO2 Sodium Potassium Chloride 109.3 H Carbon Dioxide 18 L BUN 139 H Creatinine 4.1 H Glucose 144 H POC Glucose 146 H Lactic Acid Calcium 8.1 L Phosphorus Magnesium Direct Bilirubin ALT Alkaline Phosphatase Troponin T C-Reactive Protein Total Protein Albumin Triglycerides Cholesterol LDL Cholesterol Direct HDL Cholesterol Urine WBC (Auto) Urine Creatinine Urine Total Protein Vancomycin Trough Rheumatoid Factor Complement C4 Miscellaneous Test Crossmatch 09/16/16 09/16/16 09/16/16 12:04 12:10 13:55 WBC RBC Hgb Hct MCV MCH MCHC RDW Plt Count Lymph % (Auto) [place] % (Auto) Lymph # [place] # Seg Neutrophils % Seg Neuts % (Manual) Lymphocytes % (Manual) Monocytes % (Manual) Eosinophils % (Manual) Basophils % (Manual) Nucleated RBC % Seg Neutrophils # Seg Neutrophils # Man Lymphocytes # (Manual) Monocytes # (Manual) Eosinophils # (Manual) PT INR Fibrinogen dRVVT Confirm Interp Factor V Activity POC ABG pH POC ABG pCO2 32.9 L POC ABG pO2 Sodium Potassium Chloride Carbon Dioxide BUN Creatinine Glucose POC Glucose 185 H Lactic Acid Calcium Phosphorus Magnesium Direct Bilirubin ALT Alkaline Phosphatase Troponin T C-Reactive Protein Total Protein Albumin Triglycerides Cholesterol LDL Cholesterol Direct HDL Cholesterol Urine WBC (Auto) Urine Creatinine Urine Total Protein Vancomycin Trough Rheumatoid Factor Complement C4 Miscellaneous Test Crossmatch See Detail 09/16/16 09/16/16 09/16/16 17:55 19:19 23:48 WBC RBC Hgb Hct MCV MCH MCHC RDW Plt Count Lymph % (Auto) [place] % (Auto) Lymph # [place] # Seg Neutrophils % Seg Neuts % (Manual) Lymphocytes % (Manual) Monocytes % (Manual) Eosinophils % (Manual) Basophils % (Manual) Nucleated RBC % Seg Neutrophils # Seg Neutrophils # Man Lymphocytes # (Manual) Monocytes # (Manual) Eosinophils # (Manual) PT INR Fibrinogen dRVVT Confirm Interp Factor V Activity POC ABG pH POC ABG pCO2 POC ABG pO2 Sodium Potassium Chloride Carbon Dioxide BUN Creatinine Glucose POC Glucose 222 H 107 H Lactic Acid Calcium Phosphorus Magnesium Direct Bilirubin ALT Alkaline Phosphatase Troponin T C-Reactive Protein Total Protein Albumin Triglycerides Cholesterol LDL Cholesterol Direct HDL Cholesterol Urine WBC (Auto) Urine Creatinine 47.4 H Urine Total Protein 16 H Vancomycin Trough Rheumatoid Factor Complement C4 Miscellaneous Test Crossmatch 09/17/16 09/17/16 09/17/16 03:45 03:45 04:55 WBC 19.6 H RBC 3.41 L Hgb 8.5 L Hct 26.7 L MCV 78 L MCH 25 L MCHC RDW 19.9 H Plt Count Lymph % (Auto) 9.3 L [place] % (Auto) Lymph # [place] # 1.2 H Seg Neutrophils % 83.9 H Seg Neuts % (Manual) Lymphocytes % (Manual) Monocytes % (Manual) Eosinophils % (Manual) Basophils % (Manual) Nucleated RBC % Seg Neutrophils # 16.4 H Seg Neutrophils # Man Lymphocytes # (Manual) Monocytes # (Manual) Eosinophils # (Manual) PT INR Fibrinogen dRVVT Confirm Interp Factor V Activity POC ABG pH POC ABG pCO2 POC ABG pO2 Sodium 146 H Potassium 5.1 H Chloride 110.9 H Carbon Dioxide 16 L BUN 146 H Creatinine 4.0 H Glucose 108 H POC Glucose 133 H Lactic Acid Calcium Phosphorus Magnesium 3.00 H Direct Bilirubin ALT Alkaline Phosphatase Troponin T C-Reactive Protein Total Protein Albumin Triglycerides Cholesterol LDL Cholesterol Direct HDL Cholesterol Urine WBC (Auto) Urine Creatinine Urine Total Protein Vancomycin Trough Rheumatoid Factor Complement C4 Miscellaneous Test Crossmatch 09/17/16 09/17/16 09/17/16 11:15 17:33 23:47 WBC RBC Hgb Hct MCV MCH MCHC RDW Plt Count Lymph % (Auto) [place] % (Auto) Lymph # [place] # Seg Neutrophils % Seg Neuts % (Manual) Lymphocytes % (Manual) Monocytes % (Manual) Eosinophils % (Manual) Basophils % (Manual) Nucleated RBC % Seg Neutrophils # Seg Neutrophils # Man Lymphocytes # (Manual) Monocytes # (Manual) Eosinophils # (Manual) PT INR Fibrinogen dRVVT Confirm Interp Factor V Activity POC ABG pH POC ABG pCO2 POC ABG pO2 Sodium Potassium Chloride Carbon Dioxide BUN Creatinine Glucose POC Glucose 176 H 246 H 148 H Lactic Acid Calcium Phosphorus Magnesium Direct Bilirubin ALT Alkaline Phosphatase Troponin T C-Reactive Protein Total Protein Albumin Triglycerides Cholesterol LDL Cholesterol Direct HDL Cholesterol Urine WBC (Auto) Urine Creatinine Urine Total Protein Vancomycin Trough Rheumatoid Factor Complement C4 Miscellaneous Test Crossmatch 09/18/16 09/18/16 09/18/16 05:33 08:31 08:31 WBC 18.0 H RBC 3.17 L Hgb 9.0 L Hct 25.7 L MCV MCH MCHC 35 H RDW 20.4 H Plt Count Lymph % (Auto) [place] % (Auto) Lymph # [place] # Seg Neutrophils % Seg Neuts % (Manual) Lymphocytes % (Manual) Monocytes % (Manual) Eosinophils % (Manual) Basophils % (Manual) Nucleated RBC % Seg Neutrophils # Seg Neutrophils # Man Lymphocytes # (Manual) Monocytes # (Manual) Eosinophils # (Manual) PT INR Fibrinogen dRVVT Confirm Interp Factor V Activity POC ABG pH POC ABG pCO2 POC ABG pO2 Sodium Potassium Chloride Carbon Dioxide 15 L BUN 124 H Creatinine 3.8 H Glucose POC Glucose 120 H Lactic Acid Calcium 8.1 L Phosphorus Magnesium Direct Bilirubin ALT Alkaline Phosphatase Troponin T C-Reactive Protein Total Protein Albumin Triglycerides Cholesterol LDL Cholesterol Direct HDL Cholesterol Urine WBC (Auto) Urine Creatinine Urine Total Protein Vancomycin Trough Rheumatoid Factor Complement C4 Miscellaneous Test Crossmatch 09/18/16 09/18/16 09/18/16 12:03 15:34 17:50 WBC RBC Hgb Hct MCV MCH MCHC RDW Plt Count Lymph % (Auto) [place] % (Auto) Lymph # [place] # Seg Neutrophils % Seg Neuts % (Manual) Lymphocytes % (Manual) Monocytes % (Manual) Eosinophils % (Manual) Basophils % (Manual) Nucleated RBC % Seg Neutrophils # Seg Neutrophils # Man Lymphocytes # (Manual) Monocytes # (Manual) Eosinophils # (Manual) PT INR Fibrinogen dRVVT Confirm Interp Factor V Activity POC ABG pH POC ABG pCO2 25.7 L POC ABG pO2 66 L Sodium Potassium Chloride Carbon Dioxide BUN Creatinine Glucose POC Glucose 156 H 220 H Lactic Acid Calcium Phosphorus Magnesium Direct Bilirubin ALT Alkaline Phosphatase Troponin T C-Reactive Protein Total Protein Albumin Triglycerides Cholesterol LDL Cholesterol Direct HDL Cholesterol Urine WBC (Auto) Urine Creatinine Urine Total Protein Vancomycin Trough Rheumatoid Factor Complement C4 Miscellaneous Test Crossmatch 09/19/16 09/19/16 09/19/16 06:21 09:50 09:50 WBC 17.1 H RBC 3.49 L Hgb 9.0 L Hct 28.1 L MCV MCH 26 L MCHC RDW 20.8 H Plt Count Lymph % (Auto) 11.5 L [place] % (Auto) 7.5 H Lymph # [place] # 1.3 H Seg Neutrophils % 79.8 H Seg Neuts % (Manual) Lymphocytes % (Manual) Monocytes % (Manual) Eosinophils % (Manual) Basophils % (Manual) Nucleated RBC % Seg Neutrophils # 13.7 H Seg Neutrophils # Man Lymphocytes # (Manual) Monocytes # (Manual) Eosinophils # (Manual) PT INR Fibrinogen dRVVT Confirm Interp Factor V Activity POC ABG pH POC ABG pCO2 POC ABG pO2 Sodium Potassium Chloride 108.6 H Carbon Dioxide 15 L BUN 125 H Creatinine 4.1 H Glucose 124 H POC Glucose 119 H Lactic Acid Calcium Phosphorus Magnesium Direct Bilirubin ALT Alkaline Phosphatase Troponin T C-Reactive Protein Total Protein Albumin Triglycerides Cholesterol LDL Cholesterol Direct HDL Cholesterol Urine WBC (Auto) Urine Creatinine Urine Total Protein Vancomycin Trough Rheumatoid Factor Complement C4 Miscellaneous Test Crossmatch 09/19/16 09/19/16 09/19/16 11:25 17:53 23:36 WBC RBC Hgb Hct MCV MCH MCHC RDW Plt Count Lymph % (Auto) [place] % (Auto) Lymph # [place] # Seg Neutrophils % Seg Neuts % (Manual) Lymphocytes % (Manual) Monocytes % (Manual) Eosinophils % (Manual) Basophils % (Manual) Nucleated RBC % Seg Neutrophils # Seg Neutrophils # Man Lymphocytes # (Manual) Monocytes # (Manual) Eosinophils # (Manual) PT INR Fibrinogen dRVVT Confirm Interp Factor V Activity POC ABG pH POC ABG pCO2 POC ABG pO2 Sodium Potassium Chloride Carbon Dioxide BUN Creatinine Glucose POC Glucose 160 H 245 H 121 H Lactic Acid Calcium Phosphorus Magnesium Direct Bilirubin ALT Alkaline Phosphatase Troponin T C-Reactive Protein Total Protein Albumin Triglycerides Cholesterol LDL Cholesterol Direct HDL Cholesterol Urine WBC (Auto) Urine Creatinine Urine Total Protein Vancomycin Trough Rheumatoid Factor Complement C4 Miscellaneous Test Crossmatch 09/20/16 09/20/16 09/20/16 04:10 04:10 04:10 WBC 17.0 H RBC 3.21 L Hgb 8.2 L Hct 25.5 L MCV MCH 26 L MCHC RDW 20.9 H Plt Count Lymph % (Auto) [place] % (Auto) Lymph # [place] # Seg Neutrophils % Seg Neuts % (Manual) Lymphocytes % (Manual) Monocytes % (Manual) Eosinophils % (Manual) Basophils % (Manual) Nucleated RBC % Seg Neutrophils # Seg Neutrophils # Man Lymphocytes # (Manual) Monocytes # (Manual) Eosinophils # (Manual) PT INR Fibrinogen dRVVT Confirm Interp Factor V Activity POC ABG pH POC ABG pCO2 POC ABG pO2 Sodium Potassium Chloride 111.0 H Carbon Dioxide 16 L BUN 129 H Creatinine 3.7 H Glucose 115 H POC Glucose Lactic Acid Calcium 8.2 L Phosphorus Magnesium Direct Bilirubin ALT Alkaline Phosphatase Troponin T C-Reactive Protein Total Protein Albumin Triglycerides 243 H Cholesterol LDL Cholesterol Direct HDL Cholesterol Urine WBC (Auto) Urine Creatinine Urine Total Protein Vancomycin Trough Rheumatoid Factor Complement C4 Miscellaneous Test Crossmatch 09/20/16 09/20/16 09/20/16 05:40 11:52 16:50 WBC RBC Hgb Hct MCV MCH MCHC RDW Plt Count Lymph % (Auto) [place] % (Auto) Lymph # [place] # Seg Neutrophils % Seg Neuts % (Manual) Lymphocytes % (Manual) Monocytes % (Manual) Eosinophils % (Manual) Basophils % (Manual) Nucleated RBC % Seg Neutrophils # Seg Neutrophils # Man Lymphocytes # (Manual) Monocytes # (Manual) Eosinophils # (Manual) PT INR Fibrinogen dRVVT Confirm Interp Factor V Activity POC ABG pH POC ABG pCO2 POC ABG pO2 Sodium Potassium Chloride Carbon Dioxide BUN Creatinine Glucose POC Glucose 131 H 183 H 236 H Lactic Acid Calcium Phosphorus Magnesium Direct Bilirubin ALT Alkaline Phosphatase Troponin T C-Reactive Protein Total Protein Albumin Triglycerides Cholesterol LDL Cholesterol Direct HDL Cholesterol Urine WBC (Auto) Urine Creatinine Urine Total Protein Vancomycin Trough Rheumatoid Factor Complement C4 Miscellaneous Test Crossmatch 09/20/16 09/21/16 09/21/16 23:51 03:30 04:44 WBC RBC Hgb Hct MCV MCH MCHC RDW Plt Count Lymph % (Auto) [place] % (Auto) Lymph # [place] # Seg Neutrophils % Seg Neuts % (Manual) Lymphocytes % (Manual) Monocytes % (Manual) Eosinophils % (Manual) Basophils % (Manual) Nucleated RBC % Seg Neutrophils # Seg Neutrophils # Man Lymphocytes # (Manual) Monocytes # (Manual) Eosinophils # (Manual) PT INR Fibrinogen dRVVT Confirm Interp Factor V Activity POC ABG pH POC ABG pCO2 POC ABG pO2 Sodium Potassium Chloride Carbon Dioxide BUN Creatinine Glucose POC Glucose 114 H 141 H Lactic Acid Calcium Phosphorus Magnesium 2.70 H Direct Bilirubin ALT Alkaline Phosphatase Troponin T C-Reactive Protein Total Protein Albumin Triglycerides Cholesterol LDL Cholesterol Direct HDL Cholesterol Urine WBC (Auto) Urine Creatinine Urine Total Protein Vancomycin Trough Rheumatoid Factor Complement C4 Miscellaneous Test Crossmatch 09/21/16 09/21/16 09/21/16 07:45 07:45 10:01 WBC 13.8 H RBC 2.94 L Hgb 7.5 L Hct 23.5 L MCV MCH 26 L MCHC RDW 21.2 H Plt Count Lymph % (Auto) 6.9 L [place] % (Auto) 9.4 H Lymph # 0.9 L [place] # 1.3 H Seg Neutrophils % 83.2 H Seg Neuts % (Manual) Lymphocytes % (Manual) Monocytes % (Manual) Eosinophils % (Manual) Basophils % (Manual) Nucleated RBC % Seg Neutrophils # 11.5 H Seg Neutrophils # Man Lymphocytes # (Manual) Monocytes # (Manual) Eosinophils # (Manual) PT INR Fibrinogen dRVVT Confirm Interp Factor V Activity POC ABG pH 7.308 L POC ABG pCO2 31.9 L POC ABG pO2 148 H Sodium 147 H Potassium Chloride 114.2 H Carbon Dioxide 15 L BUN 120 H Creatinine 3.9 H Glucose 156 H POC Glucose Lactic Acid Calcium 8.2 L Phosphorus Magnesium Direct Bilirubin ALT Alkaline Phosphatase Troponin T C-Reactive Protein Total Protein Albumin Triglycerides Cholesterol LDL Cholesterol Direct HDL Cholesterol Urine WBC (Auto) Urine Creatinine Urine Total Protein Vancomycin Trough Rheumatoid Factor Complement C4 Miscellaneous Test Crossmatch 09/21/16 09/21/16 09/21/16 12:00 12:03 13:00 WBC RBC Hgb Hct MCV MCH MCHC RDW Plt Count Lymph % (Auto) [place] % (Auto) Lymph # [place] # Seg Neutrophils % Seg Neuts % (Manual) Lymphocytes % (Manual) Monocytes % (Manual) Eosinophils % (Manual) Basophils % (Manual) Nucleated RBC % Seg Neutrophils # Seg Neutrophils # Man Lymphocytes # (Manual) Monocytes # (Manual) Eosinophils # (Manual) PT INR Fibrinogen dRVVT Confirm Interp Factor V Activity POC ABG pH POC ABG pCO2 POC ABG pO2 Sodium Potassium Chloride Carbon Dioxide BUN Creatinine Glucose POC Glucose 163 H Lactic Acid Calcium Phosphorus Magnesium Direct Bilirubin ALT Alkaline Phosphatase Troponin T C-Reactive Protein Total Protein Albumin Triglycerides Cholesterol LDL Cholesterol Direct HDL Cholesterol Urine WBC (Auto) Urine Creatinine 54.8 H Urine Total Protein Vancomycin Trough 2.3 L Rheumatoid Factor Complement C4 Miscellaneous Test Crossmatch 09/21/16 09/21/16 09/22/16 16:51 23:17 06:27 WBC RBC Hgb Hct MCV MCH MCHC RDW Plt Count Lymph % (Auto) [place] % (Auto) Lymph # [place] # Seg Neutrophils % Seg Neuts % (Manual) Lymphocytes % (Manual) Monocytes % (Manual) Eosinophils % (Manual) Basophils % (Manual) Nucleated RBC % Seg Neutrophils # Seg Neutrophils # Man Lymphocytes # (Manual) Monocytes # (Manual) Eosinophils # (Manual) PT INR Fibrinogen dRVVT Confirm Interp Factor V Activity POC ABG pH POC ABG pCO2 POC ABG pO2 Sodium Potassium Chloride Carbon Dioxide BUN Creatinine Glucose POC Glucose 206 H 114 H 115 H Lactic Acid Calcium Phosphorus Magnesium Direct Bilirubin ALT Alkaline Phosphatase Troponin T C-Reactive Protein Total Protein Albumin Triglycerides Cholesterol LDL Cholesterol Direct HDL Cholesterol Urine WBC (Auto) Urine Creatinine Urine Total Protein Vancomycin Trough Rheumatoid Factor Complement C4 Miscellaneous Test Crossmatch 09/22/16 09/22/16 09/22/16 07:50 07:50 12:00 WBC 17.8 H RBC 3.04 L Hgb 8.0 L Hct 24.7 L MCV MCH 26 L MCHC RDW 21.6 H Plt Count Lymph % (Auto) [place] % (Auto) Lymph # [place] # Seg Neutrophils % Seg Neuts % (Manual) Lymphocytes % (Manual) Monocytes % (Manual) Eosinophils % (Manual) Basophils % (Manual) Nucleated RBC % Seg Neutrophils # Seg Neutrophils # Man Lymphocytes # (Manual) Monocytes # (Manual) Eosinophils # (Manual) PT INR Fibrinogen dRVVT Confirm Interp Factor V Activity POC ABG pH POC ABG pCO2 POC ABG pO2 Sodium 150 H Potassium Chloride 118.2 H Carbon Dioxide 14 L BUN 111 H Creatinine 3.7 H Glucose 157 H POC Glucose 183 H Lactic Acid Calcium Phosphorus Magnesium Direct Bilirubin ALT Alkaline Phosphatase Troponin T C-Reactive Protein Total Protein Albumin Triglycerides Cholesterol LDL Cholesterol Direct HDL Cholesterol Urine WBC (Auto) Urine Creatinine Urine Total Protein Vancomycin Trough Rheumatoid Factor Complement C4 Miscellaneous Test Crossmatch 09/22/16 09/22/16 09/23/16 17:29 23:10 05:00 WBC 19.2 H RBC 3.13 L Hgb 8.0 L Hct 25.2 L MCV MCH 26 L MCHC RDW 22.1 H Plt Count Lymph % (Auto) [place] % (Auto) Lymph # [place] # Seg Neutrophils % Seg Neuts % (Manual) 92.0 H Lymphocytes % (Manual) 3.0 L Monocytes % (Manual) Eosinophils % (Manual) Basophils % (Manual) Nucleated RBC % Seg Neutrophils # Seg Neutrophils # Man 17.7 H Lymphocytes # (Manual) 0.6 L Monocytes # (Manual) Eosinophils # (Manual) PT INR Fibrinogen dRVVT Confirm Interp Factor V Activity POC ABG pH POC ABG pCO2 POC ABG pO2 Sodium Potassium Chloride Carbon Dioxide BUN Creatinine Glucose POC Glucose 197 H 169 H Lactic Acid Calcium Phosphorus Magnesium Direct Bilirubin ALT Alkaline Phosphatase Troponin T C-Reactive Protein Total Protein Albumin Triglycerides Cholesterol LDL Cholesterol Direct HDL Cholesterol Urine WBC (Auto) Urine Creatinine Urine Total Protein Vancomycin Trough Rheumatoid Factor Complement C4 Miscellaneous Test Crossmatch 09/23/16 09/23/16 09/23/16 05:00 05:00 05:10 WBC RBC Hgb Hct MCV MCH MCHC RDW Plt Count Lymph % (Auto) [place] % (Auto) Lymph # [place] # Seg Neutrophils % Seg Neuts % (Manual) Lymphocytes % (Manual) Monocytes % (Manual) Eosinophils % (Manual) Basophils % (Manual) Nucleated RBC % Seg Neutrophils # Seg Neutrophils # Man Lymphocytes # (Manual) Monocytes # (Manual) Eosinophils # (Manual) PT INR Fibrinogen dRVVT Confirm Interp Factor V Activity POC ABG pH POC ABG pCO2 POC ABG pO2 Sodium 147 H Potassium 3.2 L Chloride 115.7 H Carbon Dioxide 13 L BUN 111 H Creatinine 3.8 H Glucose 194 H POC Glucose 188 H Lactic Acid Calcium 7.3 L D Phosphorus Magnesium Direct Bilirubin ALT Alkaline Phosphatase Troponin T C-Reactive Protein 3.20 H Total Protein Albumin Triglycerides Cholesterol LDL Cholesterol Direct HDL Cholesterol Urine WBC (Auto) Urine Creatinine Urine Total Protein Vancomycin Trough Rheumatoid Factor Complement C4 Miscellaneous Test Crossmatch 09/23/16 09/23/16 09/23/16 11:37 12:29 18:01 WBC RBC Hgb Hct MCV MCH MCHC RDW Plt Count Lymph % (Auto) [place] % (Auto) Lymph # [place] # Seg Neutrophils % Seg Neuts % (Manual) Lymphocytes % (Manual) Monocytes % (Manual) Eosinophils % (Manual) Basophils % (Manual) Nucleated RBC % Seg Neutrophils # Seg Neutrophils # Man Lymphocytes # (Manual) Monocytes # (Manual) Eosinophils # (Manual) PT INR Fibrinogen dRVVT Confirm Interp Factor V Activity POC ABG pH POC ABG pCO2 18.9 L POC ABG pO2 143 H Sodium Potassium Chloride Carbon Dioxide BUN Creatinine Glucose POC Glucose 153 H 108 H Lactic Acid Calcium Phosphorus Magnesium Direct Bilirubin ALT Alkaline Phosphatase Troponin T C-Reactive Protein Total Protein Albumin Triglycerides Cholesterol LDL Cholesterol Direct HDL Cholesterol Urine WBC (Auto) Urine Creatinine Urine Total Protein Vancomycin Trough Rheumatoid Factor Complement C4 Miscellaneous Test Crossmatch 09/23/16 09/23/16 09/24/16 21:19 23:43 05:16 WBC RBC Hgb Hct MCV MCH MCHC RDW Plt Count Lymph % (Auto) [place] % (Auto) Lymph # [place] # Seg Neutrophils % Seg Neuts % (Manual) Lymphocytes % (Manual) Monocytes % (Manual) Eosinophils % (Manual) Basophils % (Manual) Nucleated RBC % Seg Neutrophils # Seg Neutrophils # Man Lymphocytes # (Manual) Monocytes # (Manual) Eosinophils # (Manual) PT INR Fibrinogen dRVVT Confirm Interp Factor V Activity POC ABG pH POC ABG pCO2 17.3 L POC ABG pO2 112 H Sodium Potassium Chloride Carbon Dioxide BUN Creatinine Glucose POC Glucose 143 H 164 H Lactic Acid Calcium Phosphorus Magnesium Direct Bilirubin ALT Alkaline Phosphatase Troponin T C-Reactive Protein Total Protein Albumin Triglycerides Cholesterol LDL Cholesterol Direct HDL Cholesterol Urine WBC (Auto) Urine Creatinine Urine Total Protein Vancomycin Trough Rheumatoid Factor Complement C4 Miscellaneous Test Crossmatch 09/24/16 09/24/16 09/24/16 05:21 11:58 17:06 WBC RBC Hgb Hct MCV MCH MCHC RDW Plt Count Lymph % (Auto) [place] % (Auto) Lymph # [place] # Seg Neutrophils % Seg Neuts % (Manual) Lymphocytes % (Manual) Monocytes % (Manual) Eosinophils % (Manual) Basophils % (Manual) Nucleated RBC % Seg Neutrophils # Seg Neutrophils # Man Lymphocytes # (Manual) Monocytes # (Manual) Eosinophils # (Manual) PT INR Fibrinogen dRVVT Confirm Interp Factor V Activity POC ABG pH POC ABG pCO2 POC ABG pO2 Sodium Potassium Chloride Carbon Dioxide 10 L BUN 103 H Creatinine 4.3 H Glucose 163 H POC Glucose 173 H 167 H Lactic Acid Calcium 6.5 L Phosphorus Magnesium Direct Bilirubin ALT Alkaline Phosphatase Troponin T C-Reactive Protein Total Protein Albumin Triglycerides Cholesterol LDL Cholesterol Direct HDL Cholesterol Urine WBC (Auto) Urine Creatinine Urine Total Protein Vancomycin Trough Rheumatoid Factor Complement C4 Miscellaneous Test Crossmatch 09/24/16 09/24/16 09/24/16 20:15 21:02 23:48 WBC RBC Hgb Hct MCV MCH MCHC RDW Plt Count Lymph % (Auto) [place] % (Auto) Lymph # [place] # Seg Neutrophils % Seg Neuts % (Manual) Lymphocytes % (Manual) Monocytes % (Manual) Eosinophils % (Manual) Basophils % (Manual) Nucleated RBC % Seg Neutrophils # Seg Neutrophils # Man Lymphocytes # (Manual) Monocytes # (Manual) Eosinophils # (Manual) PT INR Fibrinogen dRVVT Confirm Interp Factor V Activity POC ABG pH 7.288 L POC ABG pCO2 30.2 L 21.5 L POC ABG pO2 32 L 39 L Sodium Potassium Chloride Carbon Dioxide BUN Creatinine Glucose POC Glucose 109 H Lactic Acid Calcium Phosphorus Magnesium Direct Bilirubin ALT Alkaline Phosphatase Troponin T C-Reactive Protein Total Protein Albumin Triglycerides Cholesterol LDL Cholesterol Direct HDL Cholesterol Urine WBC (Auto) Urine Creatinine Urine Total Protein Vancomycin Trough Rheumatoid Factor Complement C4 Miscellaneous Test Crossmatch 09/25/16 09/25/16 09/25/16 04:20 04:20 04:20 WBC RBC 2.58 L Hgb 7.0 L Hct 21.0 L MCV MCH 27 L MCHC RDW 23.8 H Plt Count Lymph % (Auto) [place] % (Auto) Lymph # [place] # Seg Neutrophils % Seg Neuts % (Manual) Lymphocytes % (Manual) 12.0 L Monocytes % (Manual) Eosinophils % (Manual) 7.0 H Basophils % (Manual) 2.0 H Nucleated RBC % Seg Neutrophils # Seg Neutrophils # Man Lymphocytes # (Manual) 0.9 L Monocytes # (Manual) Eosinophils # (Manual) 0.5 H PT INR Fibrinogen dRVVT Confirm Interp Factor V Activity POC ABG pH POC ABG pCO2 POC ABG pO2 Sodium Potassium Chloride Carbon Dioxide 15 L BUN 72 H Creatinine 3.8 H Glucose POC Glucose Lactic Acid Calcium 6.0 L Phosphorus 4.60 H Magnesium 1.60 L Direct Bilirubin ALT Alkaline Phosphatase Troponin T C-Reactive Protein Total Protein Albumin Triglycerides Cholesterol LDL Cholesterol Direct HDL Cholesterol Urine WBC (Auto) Urine Creatinine Urine Total Protein Vancomycin Trough Rheumatoid Factor Complement C4 Miscellaneous Test Crossmatch 09/25/16 09/25/16 09/25/16 04:57 08:02 10:30 WBC RBC Hgb Hct MCV MCH MCHC RDW Plt Count Lymph % (Auto) [place] % (Auto) Lymph # [place] # Seg Neutrophils % Seg Neuts % (Manual) Lymphocytes % (Manual) Monocytes % (Manual) Eosinophils % (Manual) Basophils % (Manual) Nucleated RBC % Seg Neutrophils # Seg Neutrophils # Man Lymphocytes # (Manual) Monocytes # (Manual) Eosinophils # (Manual) PT INR Fibrinogen dRVVT Confirm Interp Factor V Activity POC ABG pH POC ABG pCO2 24.7 L POC ABG pO2 152 H Sodium Potassium Chloride Carbon Dioxide BUN Creatinine Glucose POC Glucose 113 H Lactic Acid Calcium Phosphorus Magnesium Direct Bilirubin ALT Alkaline Phosphatase Troponin T C-Reactive Protein Total Protein Albumin Triglycerides Cholesterol LDL Cholesterol Direct HDL Cholesterol Urine WBC (Auto) Urine Creatinine Urine Total Protein Vancomycin Trough Rheumatoid Factor Complement C4 Miscellaneous Test Crossmatch See Detail 09/25/16 09/25/16 09/25/16 12:05 17:44 23:47 WBC RBC Hgb Hct MCV MCH MCHC RDW Plt Count Lymph % (Auto) [place] % (Auto) Lymph # [place] # Seg Neutrophils % Seg Neuts % (Manual) Lymphocytes % (Manual) Monocytes % (Manual) Eosinophils % (Manual) Basophils % (Manual) Nucleated RBC % Seg Neutrophils # Seg Neutrophils # Man Lymphocytes # (Manual) Monocytes # (Manual) Eosinophils # (Manual) PT INR Fibrinogen dRVVT Confirm Interp Factor V Activity POC ABG pH POC ABG pCO2 POC ABG pO2 Sodium Potassium Chloride Carbon Dioxide BUN Creatinine Glucose POC Glucose 117 H 119 H 150 H Lactic Acid Calcium Phosphorus Magnesium Direct Bilirubin ALT Alkaline Phosphatase Troponin T C-Reactive Protein Total Protein Albumin Triglycerides Cholesterol LDL Cholesterol Direct HDL Cholesterol Urine WBC (Auto) Urine Creatinine Urine Total Protein Vancomycin Trough Rheumatoid Factor Complement C4 Miscellaneous Test Crossmatch 09/26/16 09/26/16 09/26/16 04:25 04:25 04:25 WBC RBC 2.65 L Hgb 7.4 L Hct 21.6 L MCV MCH MCHC RDW 22.5 H Plt Count Lymph % (Auto) [place] % (Auto) Lymph # [place] # Seg Neutrophils % Seg Neuts % (Manual) Lymphocytes % (Manual) 6.0 L Monocytes % (Manual) Eosinophils % (Manual) 11.0 H Basophils % (Manual) Nucleated RBC % Seg Neutrophils # Seg Neutrophils # Man Lymphocytes # (Manual) 0.4 L Monocytes # (Manual) Eosinophils # (Manual) 0.6 H PT INR Fibrinogen dRVVT Confirm Interp Factor V Activity POC ABG pH POC ABG pCO2 POC ABG pO2 Sodium Potassium Chloride 97.0 L Carbon Dioxide 19 L BUN 43 H Creatinine 2.6 H Glucose 130 H POC Glucose Lactic Acid 4.40 H* Calcium 6.7 L Phosphorus Magnesium Direct Bilirubin ALT Alkaline Phosphatase Troponin T C-Reactive Protein Total Protein Albumin Triglycerides Cholesterol LDL Cholesterol Direct HDL Cholesterol Urine WBC (Auto) Urine Creatinine Urine Total Protein Vancomycin Trough Rheumatoid Factor Complement C4 Miscellaneous Test Crossmatch 09/26/16 09/26/16 09/26/16 05:20 11:44 12:12 WBC RBC Hgb Hct MCV MCH MCHC RDW Plt Count Lymph % (Auto) [place] % (Auto) Lymph # [place] # Seg Neutrophils % Seg Neuts % (Manual) Lymphocytes % (Manual) Monocytes % (Manual) Eosinophils % (Manual) Basophils % (Manual) Nucleated RBC % Seg Neutrophils # Seg Neutrophils # Man Lymphocytes # (Manual) Monocytes # (Manual) Eosinophils # (Manual) PT INR Fibrinogen dRVVT Confirm Interp Factor V Activity POC ABG pH POC ABG pCO2 27.0 L POC ABG pO2 69 L Sodium Potassium Chloride Carbon Dioxide BUN Creatinine Glucose POC Glucose 121 H 128 H Lactic Acid Calcium Phosphorus Magnesium Direct Bilirubin ALT Alkaline Phosphatase Troponin T C-Reactive Protein Total Protein Albumin Triglycerides Cholesterol LDL Cholesterol Direct HDL Cholesterol Urine WBC (Auto) Urine Creatinine Urine Total Protein Vancomycin Trough Rheumatoid Factor Complement C4 Miscellaneous Test Crossmatch 09/26/16 09/26/16 09/27/16 18:31 23:40 08:20 WBC RBC Hgb Hct MCV MCH MCHC RDW Plt Count Lymph % (Auto) [place] % (Auto) Lymph # [place] # Seg Neutrophils % Seg Neuts % (Manual) Lymphocytes % (Manual) Monocytes % (Manual) Eosinophils % (Manual) Basophils % (Manual) Nucleated RBC % Seg Neutrophils # Seg Neutrophils # Man Lymphocytes # (Manual) Monocytes # (Manual) Eosinophils # (Manual) PT INR Fibrinogen dRVVT Confirm Interp Factor V Activity POC ABG pH POC ABG pCO2 POC ABG pO2 Sodium Potassium Chloride Carbon Dioxide BUN Creatinine Glucose POC Glucose 120 H 133 H Lactic Acid 4.10 H* Calcium Phosphorus Magnesium Direct Bilirubin ALT Alkaline Phosphatase Troponin T C-Reactive Protein Total Protein Albumin Triglycerides Cholesterol LDL Cholesterol Direct HDL Cholesterol Urine WBC (Auto) Urine Creatinine Urine Total Protein Vancomycin Trough Rheumatoid Factor Complement C4 Miscellaneous Test Crossmatch 09/27/16 09/27/16 09/27/16 11:23 15:00 18:15 WBC RBC Hgb Hct MCV MCH MCHC RDW Plt Count Lymph % (Auto) [place] % (Auto) Lymph # [place] # Seg Neutrophils % Seg Neuts % (Manual) Lymphocytes % (Manual) Monocytes % (Manual) Eosinophils % (Manual) Basophils % (Manual) Nucleated RBC % Seg Neutrophils # Seg Neutrophils # Man Lymphocytes # (Manual) Monocytes # (Manual) Eosinophils # (Manual) PT INR Fibrinogen dRVVT Confirm Interp Factor V Activity POC ABG pH 7.459 H POC ABG pCO2 27.1 L POC ABG pO2 140 H Sodium Potassium Chloride Carbon Dioxide BUN Creatinine Glucose POC Glucose 114 H 127 H Lactic Acid Calcium Phosphorus Magnesium Direct Bilirubin ALT Alkaline Phosphatase Troponin T C-Reactive Protein Total Protein Albumin Triglycerides Cholesterol LDL Cholesterol Direct HDL Cholesterol Urine WBC (Auto) Urine Creatinine Urine Total Protein Vancomycin Trough Rheumatoid Factor Complement C4 Miscellaneous Test Crossmatch 09/27/16 09/27/16 09/28/16 Unknown Unknown 03:45 WBC RBC 2.49 L Hgb 6.8 L Hct 20.7 L MCV MCH 27 L MCHC RDW 22.1 H Plt Count Lymph % (Auto) [place] % (Auto) Lymph # [place] # Seg Neutrophils % Seg Neuts % (Manual) 32.0 L Lymphocytes % (Manual) 12.0 L Monocytes % (Manual) 11.0 H Eosinophils % (Manual) 10.0 H Basophils % (Manual) Nucleated RBC % Seg Neutrophils # Seg Neutrophils # Man Lymphocytes # (Manual) 1.0 L Monocytes # (Manual) 0.9 H Eosinophils # (Manual) 0.8 H PT INR Fibrinogen dRVVT Confirm Interp Factor V Activity POC ABG pH POC ABG pCO2 POC ABG pO2 Sodium 135 L 135 L Potassium 3.5 L Chloride 93.6 L 94.4 L Carbon Dioxide 17 L 21 L BUN 45 H 28 H Creatinine 3.3 H 2.5 H Glucose 106 H POC Glucose Lactic Acid Calcium 7.3 L 7.1 L Phosphorus Magnesium Direct Bilirubin ALT Alkaline Phosphatase Troponin T C-Reactive Protein Total Protein Albumin Triglycerides Cholesterol LDL Cholesterol Direct HDL Cholesterol Urine WBC (Auto) Urine Creatinine Urine Total Protein Vancomycin Trough Rheumatoid Factor Complement C4 Miscellaneous Test Crossmatch 09/28/16 09/28/16 09/28/16 03:45 07:25 11:58 WBC 13.3 H RBC 3.01 L Hgb 8.4 L Hct 25.0 L MCV MCH MCHC RDW 20.5 H Plt Count 128 L Lymph % (Auto) [place] % (Auto) Lymph # [place] # Seg Neutrophils % Seg Neuts % (Manual) Lymphocytes % (Manual) 7.0 L Monocytes % (Manual) Eosinophils % (Manual) 6.0 H Basophils % (Manual) Nucleated RBC % Seg Neutrophils # Seg Neutrophils # Man Lymphocytes # (Manual) 0.9 L Monocytes # (Manual) Eosinophils # (Manual) 0.8 H PT INR Fibrinogen dRVVT Confirm Interp Factor V Activity POC ABG pH POC ABG pCO2 POC ABG pO2 Sodium Potassium Chloride Carbon Dioxide BUN Creatinine Glucose POC Glucose 121 H Lactic Acid 4.50 H* Calcium Phosphorus Magnesium Direct Bilirubin ALT Alkaline Phosphatase Troponin T C-Reactive Protein Total Protein Albumin Triglycerides Cholesterol LDL Cholesterol Direct HDL Cholesterol Urine WBC (Auto) Urine Creatinine Urine Total Protein Vancomycin Trough Rheumatoid Factor Complement C4 Miscellaneous Test Crossmatch 09/29/16 09/29/16 09/29/16 06:45 06:45 06:45 WBC 14.9 H RBC 2.74 L Hgb 7.6 L Hct 23.2 L MCV MCH MCHC RDW 20.5 H Plt Count 81 L Lymph % (Auto) [place] % (Auto) Lymph # [place] # Seg Neutrophils % Seg Neuts % (Manual) 81.0 H Lymphocytes % (Manual) 4.0 L Monocytes % (Manual) Eosinophils % (Manual) Basophils % (Manual) Nucleated RBC % Seg Neutrophils # Seg Neutrophils # Man 12.1 H Lymphocytes # (Manual) 0.6 L Monocytes # (Manual) Eosinophils # (Manual) PT INR Fibrinogen dRVVT Confirm Interp Factor V Activity POC ABG pH POC ABG pCO2 POC ABG pO2 Sodium 133 L Potassium 3.4 L Chloride 92.5 L Carbon Dioxide 21 L BUN 33 H Creatinine 3.0 H Glucose POC Glucose Lactic Acid Calcium 6.6 L Phosphorus Magnesium 1.40 L Direct Bilirubin 0.9 H ALT Alkaline Phosphatase Troponin T C-Reactive Protein Total Protein 4.3 L Albumin 1.3 L Triglycerides Cholesterol LDL Cholesterol Direct HDL Cholesterol Urine WBC (Auto) Urine Creatinine Urine Total Protein Vancomycin Trough Rheumatoid Factor Complement C4 Miscellaneous Test Crossmatch 09/29/16 09/29/16 09/30/16 17:52 20:12 00:07 WBC RBC Hgb Hct MCV MCH MCHC RDW Plt Count Lymph % (Auto) [place] % (Auto) Lymph # [place] # Seg Neutrophils % Seg Neuts % (Manual) Lymphocytes % (Manual) Monocytes % (Manual) Eosinophils % (Manual) Basophils % (Manual) Nucleated RBC % Seg Neutrophils # Seg Neutrophils # Man Lymphocytes # (Manual) Monocytes # (Manual) Eosinophils # (Manual) PT INR Fibrinogen dRVVT Confirm Interp Factor V Activity POC ABG pH POC ABG pCO2 POC ABG pO2 Sodium Potassium Chloride Carbon Dioxide BUN Creatinine Glucose POC Glucose 50 L 51 L Lactic Acid Calcium Phosphorus Magnesium Direct Bilirubin ALT Alkaline Phosphatase Troponin T 0.204 H* C-Reactive Protein Total Protein Albumin Triglycerides Cholesterol 31 L LDL Cholesterol Direct 4 L HDL Cholesterol 3 L Urine WBC (Auto) Urine Creatinine Urine Total Protein Vancomycin Trough Rheumatoid Factor Complement C4 Miscellaneous Test Crossmatch 09/30/16 09/30/16 09/30/16 01:30 05:15 06:10 WBC RBC Hgb Hct MCV MCH MCHC RDW Plt Count Lymph % (Auto) [place] % (Auto) Lymph # [place] # Seg Neutrophils % Seg Neuts % (Manual) Lymphocytes % (Manual) Monocytes % (Manual) Eosinophils % (Manual) Basophils % (Manual) Nucleated RBC % Seg Neutrophils # Seg Neutrophils # Man Lymphocytes # (Manual) Monocytes # (Manual) Eosinophils # (Manual) PT INR Fibrinogen dRVVT Confirm Interp Factor V Activity POC ABG pH POC ABG pCO2 POC ABG pO2 Sodium 133 L Potassium 3.2 L Chloride 93.2 L Carbon Dioxide 19 L BUN 36 H Creatinine 3.2 H Glucose 104 H POC Glucose 167 H 146 H Lactic Acid Calcium 6.4 L Phosphorus Magnesium 1.60 L Direct Bilirubin ALT Alkaline Phosphatase Troponin T C-Reactive Protein Total Protein Albumin Triglycerides Cholesterol LDL Cholesterol Direct HDL Cholesterol Urine WBC (Auto) Urine Creatinine Urine Total Protein Vancomycin Trough Rheumatoid Factor Complement C4 Miscellaneous Test Crossmatch 09/30/16 09/30/16 09/30/16 11:26 13:39 18:38 WBC RBC Hgb Hct MCV MCH MCHC RDW Plt Count Lymph % (Auto) [place] % (Auto) Lymph # [place] # Seg Neutrophils % Seg Neuts % (Manual) Lymphocytes % (Manual) Monocytes % (Manual) Eosinophils % (Manual) Basophils % (Manual) Nucleated RBC % Seg Neutrophils # Seg Neutrophils # Man Lymphocytes # (Manual) Monocytes # (Manual) Eosinophils # (Manual) PT INR Fibrinogen dRVVT Confirm Interp Factor V Activity POC ABG pH 7.479 H POC ABG pCO2 29.8 L POC ABG pO2 117 H Sodium Potassium Chloride Carbon Dioxide BUN Creatinine Glucose POC Glucose 140 H 122 H Lactic Acid Calcium Phosphorus Magnesium Direct Bilirubin ALT Alkaline Phosphatase Troponin T C-Reactive Protein Total Protein Albumin Triglycerides Cholesterol LDL Cholesterol Direct HDL Cholesterol Urine WBC (Auto) Urine Creatinine Urine Total Protein Vancomycin Trough Rheumatoid Factor Complement C4 Miscellaneous Test Crossmatch 10/01/16 10/01/16 10/01/16 06:00 06:00 12:37 WBC 12.6 H RBC 2.75 L Hgb 7.3 L Hct 23.3 L MCV MCH 27 L MCHC RDW 20.6 H Plt Count 72 L Lymph % (Auto) [place] % (Auto) Lymph # [place] # Seg Neutrophils % Seg Neuts % (Manual) 31.0 L Lymphocytes % (Manual) 8.0 L Monocytes % (Manual) Eosinophils % (Manual) Basophils % (Manual) Nucleated RBC % 3.0 H Seg Neutrophils # Seg Neutrophils # Man Lymphocytes # (Manual) 1.0 L Monocytes # (Manual) Eosinophils # (Manual) PT INR Fibrinogen dRVVT Confirm Interp Factor V Activity POC ABG pH POC ABG pCO2 POC ABG pO2 Sodium 127 L Potassium Chloride 86.8 L Carbon Dioxide 20 L BUN 42 H Creatinine 3.5 H Glucose POC Glucose 65 L Lactic Acid Calcium 7.0 L Phosphorus Magnesium Direct Bilirubin ALT Alkaline Phosphatase Troponin T C-Reactive Protein Total Protein Albumin Triglycerides Cholesterol LDL Cholesterol Direct HDL Cholesterol Urine WBC (Auto) Urine Creatinine Urine Total Protein Vancomycin Trough Rheumatoid Factor Complement C4 Miscellaneous Test Crossmatch 10/01/16 10/01/16 10/02/16 17:39 23:32 00:59 WBC RBC Hgb Hct MCV MCH MCHC RDW Plt Count Lymph % (Auto) [place] % (Auto) Lymph # [place] # Seg Neutrophils % Seg Neuts % (Manual) Lymphocytes % (Manual) Monocytes % (Manual) Eosinophils % (Manual) Basophils % (Manual) Nucleated RBC % Seg Neutrophils # Seg Neutrophils # Man Lymphocytes # (Manual) Monocytes # (Manual) Eosinophils # (Manual) PT INR Fibrinogen dRVVT Confirm Interp Factor V Activity POC ABG pH POC ABG pCO2 POC ABG pO2 Sodium Potassium Chloride Carbon Dioxide BUN Creatinine Glucose POC Glucose 107 H 52 L 145 H Lactic Acid Calcium Phosphorus Magnesium Direct Bilirubin ALT Alkaline Phosphatase Troponin T C-Reactive Protein Total Protein Albumin Triglycerides Cholesterol LDL Cholesterol Direct HDL Cholesterol Urine WBC (Auto) Urine Creatinine Urine Total Protein Vancomycin Trough Rheumatoid Factor Complement C4 Miscellaneous Test Crossmatch 10/02/16 10/02/16 10/02/16 10:30 10:50 10:50 WBC 14.7 H RBC 2.76 L Hgb 7.4 L Hct 23.6 L MCV MCH 27 L MCHC RDW 20.2 H Plt Count 79 L Lymph % (Auto) [place] % (Auto) Lymph # [place] # Seg Neutrophils % Seg Neuts % (Manual) 86.0 H Lymphocytes % (Manual) 6.0 L Monocytes % (Manual) Eosinophils % (Manual) Basophils % (Manual) Nucleated RBC % Seg Neutrophils # Seg Neutrophils # Man 12.6 H Lymphocytes # (Manual) 0.9 L Monocytes # (Manual) Eosinophils # (Manual) PT INR Fibrinogen dRVVT Confirm Interp Factor V Activity POC ABG pH 7.486 H POC ABG pCO2 30.1 L POC ABG pO2 108 H Sodium 131 L Potassium 3.4 L Chloride 89.9 L Carbon Dioxide BUN 26 H Creatinine 2.6 H Glucose POC Glucose Lactic Acid Calcium 7.0 L Phosphorus Magnesium Direct Bilirubin ALT Alkaline Phosphatase Troponin T C-Reactive Protein Total Protein Albumin Triglycerides Cholesterol LDL Cholesterol Direct HDL Cholesterol Urine WBC (Auto) Urine Creatinine Urine Total Protein Vancomycin Trough Rheumatoid Factor Complement C4 Miscellaneous Test Crossmatch 10/02/16 10/03/16 10/03/16 23:45 00:45 05:10 WBC 12.9 H RBC 2.77 L Hgb 7.6 L Hct 23.7 L MCV MCH 27 L MCHC RDW 19.7 H Plt Count 89 L Lymph % (Auto) [place] % (Auto) Lymph # [place] # Seg Neutrophils % Seg Neuts % (Manual) Lymphocytes % (Manual) 8.0 L Monocytes % (Manual) Eosinophils % (Manual) Basophils % (Manual) Nucleated RBC % Seg Neutrophils # 11.9 H Seg Neutrophils # Man Lymphocytes # (Manual) 1.0 L Monocytes # (Manual) Eosinophils # (Manual) PT INR Fibrinogen dRVVT Confirm Interp Factor V Activity POC ABG pH POC ABG pCO2 POC ABG pO2 Sodium Potassium Chloride Carbon Dioxide BUN Creatinine Glucose POC Glucose 55 L 199 H Lactic Acid Calcium Phosphorus Magnesium Direct Bilirubin ALT Alkaline Phosphatase Troponin T C-Reactive Protein Total Protein Albumin Triglycerides Cholesterol LDL Cholesterol Direct HDL Cholesterol Urine WBC (Auto) Urine Creatinine Urine Total Protein Vancomycin Trough Rheumatoid Factor Complement C4 Miscellaneous Test Crossmatch 10/03/16 10/03/16 10/03/16 05:10 12:14 13:18 WBC RBC Hgb Hct MCV MCH MCHC RDW Plt Count Lymph % (Auto) [place] % (Auto) Lymph # [place] # Seg Neutrophils % Seg Neuts % (Manual) Lymphocytes % (Manual) Monocytes % (Manual) Eosinophils % (Manual) Basophils % (Manual) Nucleated RBC % Seg Neutrophils # Seg Neutrophils # Man Lymphocytes # (Manual) Monocytes # (Manual) Eosinophils # (Manual) PT INR Fibrinogen dRVVT Confirm Interp Factor V Activity POC ABG pH POC ABG pCO2 POC ABG pO2 Sodium 129 L Potassium 3.3 L Chloride 88.8 L Carbon Dioxide 20 L BUN 29 H Creatinine 2.8 H Glucose POC Glucose 68 L 127 H Lactic Acid Calcium 7.2 L Phosphorus Magnesium Direct Bilirubin ALT Alkaline Phosphatase Troponin T C-Reactive Protein Total Protein Albumin Triglycerides Cholesterol LDL Cholesterol Direct HDL Cholesterol Urine WBC (Auto) Urine Creatinine Urine Total Protein Vancomycin Trough Rheumatoid Factor Complement C4 Miscellaneous Test Crossmatch 10/03/16 10/03/16 10/03/16 14:42 18:21 19:09 WBC RBC Hgb Hct MCV MCH MCHC RDW Plt Count Lymph % (Auto) [place] % (Auto) Lymph # [place] # Seg Neutrophils % Seg Neuts % (Manual) Lymphocytes % (Manual) Monocytes % (Manual) Eosinophils % (Manual) Basophils % (Manual) Nucleated RBC % Seg Neutrophils # Seg Neutrophils # Man Lymphocytes # (Manual) Monocytes # (Manual) Eosinophils # (Manual) PT INR Fibrinogen dRVVT Confirm Interp Factor V Activity POC ABG pH 7.499 H POC ABG pCO2 28.4 L POC ABG pO2 44 L Sodium Potassium Chloride Carbon Dioxide BUN Creatinine Glucose POC Glucose 64 L 205 H Lactic Acid Calcium Phosphorus Magnesium Direct Bilirubin ALT Alkaline Phosphatase Troponin T C-Reactive Protein Total Protein Albumin Triglycerides Cholesterol LDL Cholesterol Direct HDL Cholesterol Urine WBC (Auto) Urine Creatinine Urine Total Protein Vancomycin Trough Rheumatoid Factor Complement C4 Miscellaneous Test Crossmatch 10/03/16 10/04/16 10/04/16 23:33 04:18 06:30 WBC RBC 2.54 L Hgb 7.1 L Hct 21.7 L MCV MCH MCHC RDW 19.5 H Plt Count 76 L Lymph % (Auto) [place] % (Auto) Lymph # [place] # Seg Neutrophils % Seg Neuts % (Manual) 88.0 H Lymphocytes % (Manual) 6.0 L Monocytes % (Manual) Eosinophils % (Manual) Basophils % (Manual) Nucleated RBC % Seg Neutrophils # Seg Neutrophils # Man 8.8 H Lymphocytes # (Manual) 0.6 L Monocytes # (Manual) Eosinophils # (Manual) PT INR Fibrinogen dRVVT Confirm Interp Factor V Activity POC ABG pH 7.461 H POC ABG pCO2 33.6 L POC ABG pO2 211 H Sodium Potassium Chloride Carbon Dioxide BUN Creatinine Glucose POC Glucose 136 H Lactic Acid Calcium Phosphorus Magnesium Direct Bilirubin ALT Alkaline Phosphatase Troponin T C-Reactive Protein Total Protein Albumin Triglycerides Cholesterol LDL Cholesterol Direct HDL Cholesterol Urine WBC (Auto) Urine Creatinine Urine Total Protein Vancomycin Trough Rheumatoid Factor Complement C4 Miscellaneous Test Crossmatch 10/04/16 10/04/16 10/04/16 06:30 11:45 17:54 WBC RBC Hgb Hct MCV MCH MCHC RDW Plt Count Lymph % (Auto) [place] % (Auto) Lymph # [place] # Seg Neutrophils % Seg Neuts % (Manual) Lymphocytes % (Manual) Monocytes % (Manual) Eosinophils % (Manual) Basophils % (Manual) Nucleated RBC % Seg Neutrophils # Seg Neutrophils # Man Lymphocytes # (Manual) Monocytes # (Manual) Eosinophils # (Manual) PT INR Fibrinogen dRVVT Confirm Interp Factor V Activity POC ABG pH POC ABG pCO2 POC ABG pO2 Sodium 128 L Potassium Chloride 87.4 L Carbon Dioxide 20 L BUN 34 H Creatinine 2.9 H Glucose 127 H POC Glucose 158 H 160 H Lactic Acid Calcium 7.4 L Phosphorus Magnesium Direct Bilirubin ALT Alkaline Phosphatase Troponin T C-Reactive Protein Total Protein Albumin Triglycerides Cholesterol LDL Cholesterol Direct HDL Cholesterol Urine WBC (Auto) Urine Creatinine Urine Total Protein Vancomycin Trough Rheumatoid Factor Complement C4 Miscellaneous Test Crossmatch 10/04/16 10/05/16 10/05/16 23:25 04:30 05:00 WBC RBC 2.64 L Hgb 7.5 L Hct 22.6 L MCV MCH MCHC RDW 19.3 H Plt Count 80 L Lymph % (Auto) [place] % (Auto) Lymph # [place] # Seg Neutrophils % Seg Neuts % (Manual) Lymphocytes % (Manual) 12.0 L Monocytes % (Manual) Eosinophils % (Manual) Basophils % (Manual) Nucleated RBC % Seg Neutrophils # Seg Neutrophils # Man Lymphocytes # (Manual) Monocytes # (Manual) Eosinophils # (Manual) PT INR Fibrinogen dRVVT Confirm Interp Factor V Activity POC ABG pH 7.475 H POC ABG pCO2 33.3 L POC ABG pO2 140 H Sodium Potassium Chloride Carbon Dioxide BUN Creatinine Glucose POC Glucose 141 H Lactic Acid Calcium Phosphorus Magnesium Direct Bilirubin ALT Alkaline Phosphatase Troponin T C-Reactive Protein Total Protein Albumin Triglycerides Cholesterol LDL Cholesterol Direct HDL Cholesterol Urine WBC (Auto) Urine Creatinine Urine Total Protein Vancomycin Trough Rheumatoid Factor Complement C4 Miscellaneous Test Crossmatch 10/05/16 10/05/16 10/05/16 05:00 05:09 12:58 WBC RBC Hgb Hct MCV MCH MCHC RDW Plt Count Lymph % (Auto) [place] % (Auto) Lymph # [place] # Seg Neutrophils % Seg Neuts % (Manual) Lymphocytes % (Manual) Monocytes % (Manual) Eosinophils % (Manual) Basophils % (Manual) Nucleated RBC % Seg Neutrophils # Seg Neutrophils # Man Lymphocytes # (Manual) Monocytes # (Manual) Eosinophils # (Manual) PT INR Fibrinogen dRVVT Confirm Interp Factor V Activity POC ABG pH POC ABG pCO2 POC ABG pO2 Sodium 131 L Potassium Chloride 94.0 L Carbon Dioxide 20 L BUN 22 H Creatinine 2.0 H Glucose 123 H POC Glucose 166 H 179 H Lactic Acid Calcium 7.7 L Phosphorus 2.20 L D Magnesium Direct Bilirubin ALT Alkaline Phosphatase Troponin T C-Reactive Protein Total Protein Albumin Triglycerides Cholesterol LDL Cholesterol Direct HDL Cholesterol Urine WBC (Auto) Urine Creatinine Urine Total Protein Vancomycin Trough Rheumatoid Factor Complement C4 Miscellaneous Test Crossmatch 10/05/16 10/05/16 10/05/16 15:50 18:53 23:12 WBC RBC Hgb Hct MCV MCH MCHC RDW Plt Count Lymph % (Auto) [place] % (Auto) Lymph # [place] # Seg Neutrophils % Seg Neuts % (Manual) Lymphocytes % (Manual) Monocytes % (Manual) Eosinophils % (Manual) Basophils % (Manual) Nucleated RBC % Seg Neutrophils # Seg Neutrophils # Man Lymphocytes # (Manual) Monocytes # (Manual) Eosinophils # (Manual) PT INR Fibrinogen dRVVT Confirm Interp Factor V Activity POC ABG pH POC ABG pCO2 POC ABG pO2 Sodium Potassium Chloride Carbon Dioxide BUN Creatinine Glucose POC Glucose 150 H 164 H Lactic Acid Calcium Phosphorus Magnesium Direct Bilirubin ALT Alkaline Phosphatase Troponin T C-Reactive Protein Total Protein Albumin Triglycerides Cholesterol LDL Cholesterol Direct HDL Cholesterol Urine WBC (Auto) Urine Creatinine Urine Total Protein Vancomycin Trough Rheumatoid Factor Complement C4 Miscellaneous Test Crossmatch See Detail 10/06/16 10/06/16 10/06/16 03:50 03:50 04:53 WBC RBC 3.00 L Hgb 8.6 L Hct 25.8 L MCV MCH MCHC RDW 17.9 H Plt Count 65 L Lymph % (Auto) [place] % (Auto) Lymph # [place] # Seg Neutrophils % Seg Neuts % (Manual) 30.0 L Lymphocytes % (Manual) 5.0 L Monocytes % (Manual) Eosinophils % (Manual) Basophils % (Manual) Nucleated RBC % Seg Neutrophils # Seg Neutrophils # Man Lymphocytes # (Manual) 0.4 L Monocytes # (Manual) Eosinophils # (Manual) PT INR Fibrinogen dRVVT Confirm Interp Factor V Activity POC ABG pH 7.310 L POC ABG pCO2 49.0 H POC ABG pO2 Sodium 133 L Potassium Chloride 95.9 L Carbon Dioxide BUN 26 H Creatinine 2.0 H Glucose 116 H POC Glucose Lactic Acid Calcium 7.8 L Phosphorus Magnesium Direct Bilirubin ALT Alkaline Phosphatase Troponin T C-Reactive Protein Total Protein Albumin Triglycerides Cholesterol LDL Cholesterol Direct HDL Cholesterol Urine WBC (Auto) Urine Creatinine Urine Total Protein Vancomycin Trough Rheumatoid Factor Complement C4 Miscellaneous Test Crossmatch 10/06/16 10/06/16 10/06/16 05:23 11:52 18:34 WBC RBC Hgb Hct MCV MCH MCHC RDW Plt Count Lymph % (Auto) [place] % (Auto) Lymph # [place] # Seg Neutrophils % Seg Neuts % (Manual) Lymphocytes % (Manual) Monocytes % (Manual) Eosinophils % (Manual) Basophils % (Manual) Nucleated RBC % Seg Neutrophils # Seg Neutrophils # Man Lymphocytes # (Manual) Monocytes # (Manual) Eosinophils # (Manual) PT INR Fibrinogen dRVVT Confirm Interp Factor V Activity POC ABG pH POC ABG pCO2 POC ABG pO2 Sodium Potassium Chloride Carbon Dioxide BUN Creatinine Glucose POC Glucose 126 H 116 H 129 H Lactic Acid Calcium Phosphorus Magnesium Direct Bilirubin ALT Alkaline Phosphatase Troponin T C-Reactive Protein Total Protein Albumin Triglycerides Cholesterol LDL Cholesterol Direct HDL Cholesterol Urine WBC (Auto) Urine Creatinine Urine Total Protein Vancomycin Trough Rheumatoid Factor Complement C4 Miscellaneous Test Crossmatch 10/07/16 10/07/16 10/07/16 03:45 05:00 10:00 WBC 17.0 H RBC 2.68 L Hgb 7.3 L Hct 25.3 L MCV MCH 27 L MCHC 29 L RDW 19.6 H Plt Count 74 L Lymph % (Auto) [place] % (Auto) Lymph # [place] # Seg Neutrophils % Seg Neuts % (Manual) Lymphocytes % (Manual) 12.0 L Monocytes % (Manual) Eosinophils % (Manual) Basophils % (Manual) Nucleated RBC % 4.0 H Seg Neutrophils # Seg Neutrophils # Man 10.7 H Lymphocytes # (Manual) Monocytes # (Manual) Eosinophils # (Manual) PT INR Fibrinogen dRVVT Confirm Interp Factor V Activity POC ABG pH POC ABG pCO2 POC ABG pO2 Sodium 130 L Potassium 3.2 L Chloride 93.9 L Carbon Dioxide 20 L BUN 44 H Creatinine 2.7 H Glucose 129 H POC Glucose Lactic Acid Calcium 7.4 L Phosphorus Magnesium Direct Bilirubin ALT 6 L Alkaline Phosphatase 195 H Troponin T C-Reactive Protein Total Protein 4.9 L Albumin 1.0 L Triglycerides Cholesterol LDL Cholesterol Direct HDL Cholesterol Urine WBC (Auto) Urine Creatinine Urine Total Protein Vancomycin Trough Rheumatoid Factor Complement C4 Miscellaneous Test Flexitest 1 H Crossmatch 10/07/16 10/07/16 10/07/16 10:00 11:24 18:10 WBC RBC Hgb Hct MCV MCH MCHC RDW Plt Count Lymph % (Auto) [place] % (Auto) Lymph # [place] # Seg Neutrophils % Seg Neuts % (Manual) Lymphocytes % (Manual) Monocytes % (Manual) Eosinophils % (Manual) Basophils % (Manual) Nucleated RBC % Seg Neutrophils # Seg Neutrophils # Man Lymphocytes # (Manual) Monocytes # (Manual) Eosinophils # (Manual) PT INR Fibrinogen dRVVT Confirm Interp Factor V Activity POC ABG pH POC ABG pCO2 POC ABG pO2 Sodium Potassium Chloride Carbon Dioxide BUN Creatinine Glucose POC Glucose 116 H 130 H Lactic Acid Calcium Phosphorus Magnesium Direct Bilirubin ALT Alkaline Phosphatase Troponin T C-Reactive Protein 19.40 H Total Protein Albumin Triglycerides Cholesterol LDL Cholesterol Direct HDL Cholesterol Urine WBC (Auto) Urine Creatinine Urine Total Protein Vancomycin Trough Rheumatoid Factor Complement C4 Miscellaneous Test Crossmatch 10/07/16 10/08/16 10/08/16 18:30 00:00 04:00 WBC RBC Hgb Hct MCV MCH MCHC RDW Plt Count Lymph % (Auto) [place] % (Auto) Lymph # [place] # Seg Neutrophils % Seg Neuts % (Manual) Lymphocytes % (Manual) Monocytes % (Manual) Eosinophils % (Manual) Basophils % (Manual) Nucleated RBC % Seg Neutrophils # Seg Neutrophils # Man Lymphocytes # (Manual) Monocytes # (Manual) Eosinophils # (Manual) PT INR Fibrinogen dRVVT Confirm Interp Factor V Activity POC ABG pH POC ABG pCO2 POC ABG pO2 Sodium 132 L Potassium 3.3 L Chloride 93.6 L Carbon Dioxide 17 L BUN 59 H Creatinine 2.7 H Glucose 121 H POC Glucose 122 H Lactic Acid Calcium 7.6 L Phosphorus Magnesium Direct Bilirubin ALT Alkaline Phosphatase Troponin T C-Reactive Protein Total Protein Albumin Triglycerides Cholesterol LDL Cholesterol Direct HDL Cholesterol Urine WBC (Auto) > 182.0 H Urine Creatinine Urine Total Protein Vancomycin Trough Rheumatoid Factor Complement C4 Miscellaneous Test Crossmatch 10/08/16 10/08/16 10/08/16 04:30 05:30 11:51 WBC RBC 5.15 H Hgb 14.4 H D Hct 44.5 H D MCV MCH MCHC RDW 19.5 H Plt Count 56 L Lymph % (Auto) [place] % (Auto) Lymph # [place] # Seg Neutrophils % Seg Neuts % (Manual) 24.0 L Lymphocytes % (Manual) 8.0 L Monocytes % (Manual) Eosinophils % (Manual) Basophils % (Manual) Nucleated RBC % 9.0 H Seg Neutrophils # Seg Neutrophils # Man Lymphocytes # (Manual) 0.7 L Monocytes # (Manual) Eosinophils # (Manual) PT INR Fibrinogen dRVVT Confirm Interp Factor V Activity POC ABG pH POC ABG pCO2 POC ABG pO2 Sodium Potassium Chloride Carbon Dioxide BUN Creatinine Glucose POC Glucose 125 H 150 H Lactic Acid Calcium Phosphorus Magnesium Direct Bilirubin ALT Alkaline Phosphatase Troponin T C-Reactive Protein Total Protein Albumin Triglycerides Cholesterol LDL Cholesterol Direct HDL Cholesterol Urine WBC (Auto) Urine Creatinine Urine Total Protein Vancomycin Trough Rheumatoid Factor Complement C4 Miscellaneous Test Crossmatch 10/08/16 10/08/16 10/08/16 12:49 17:07 19:30 WBC RBC Hgb 7.1 L D Hct 22.4 L D MCV MCH MCHC RDW Plt Count Lymph % (Auto) [place] % (Auto) Lymph # [place] # Seg Neutrophils % Seg Neuts % (Manual) Lymphocytes % (Manual) Monocytes % (Manual) Eosinophils % (Manual) Basophils % (Manual) Nucleated RBC % Seg Neutrophils # Seg Neutrophils # Man Lymphocytes # (Manual) Monocytes # (Manual) Eosinophils # (Manual) PT INR Fibrinogen dRVVT Confirm Interp Factor V Activity POC ABG pH POC ABG pCO2 28.2 L POC ABG pO2 111 H Sodium Potassium Chloride Carbon Dioxide BUN Creatinine Glucose POC Glucose 145 H Lactic Acid Calcium Phosphorus Magnesium Direct Bilirubin ALT Alkaline Phosphatase Troponin T C-Reactive Protein Total Protein Albumin Triglycerides Cholesterol LDL Cholesterol Direct HDL Cholesterol Urine WBC (Auto) Urine Creatinine Urine Total Protein Vancomycin Trough Rheumatoid Factor Complement C4 Miscellaneous Test Crossmatch 10/08/16 10/09/16 10/09/16 19:30 03:45 03:45 WBC 12.6 H RBC 2.36 L Hgb 6.7 L Hct 21.1 L MCV MCH MCHC RDW 19.5 H Plt Count 75 L Lymph % (Auto) [place] % (Auto) Lymph # [place] # Seg Neutrophils % Seg Neuts % (Manual) Lymphocytes % (Manual) Monocytes % (Manual) 10.0 H Eosinophils % (Manual) Basophils % (Manual) Nucleated RBC % 3.0 H Seg Neutrophils # Seg Neutrophils # Man Lymphocytes # (Manual) Monocytes # (Manual) 1.3 H Eosinophils # (Manual) PT 18.0 H INR 1.41 H Fibrinogen dRVVT Confirm Interp Factor V Activity POC ABG pH POC ABG pCO2 POC ABG pO2 Sodium 135 L Potassium Chloride Carbon Dioxide 17 L BUN 81 H Creatinine 3.2 H Glucose 109 H POC Glucose Lactic Acid Calcium 7.4 L Phosphorus 4.60 H D Magnesium Direct Bilirubin ALT Alkaline Phosphatase Troponin T C-Reactive Protein Total Protein Albumin Triglycerides Cholesterol LDL Cholesterol Direct HDL Cholesterol Urine WBC (Auto) Urine Creatinine Urine Total Protein Vancomycin Trough Rheumatoid Factor Complement C4 Miscellaneous Test Crossmatch 10/09/16 10/09/16 10/09/16 03:45 05:14 07:20 WBC RBC Hgb Hct MCV MCH MCHC RDW Plt Count Lymph % (Auto) [place] % (Auto) Lymph # [place] # Seg Neutrophils % Seg Neuts % (Manual) Lymphocytes % (Manual) Monocytes % (Manual) Eosinophils % (Manual) Basophils % (Manual) Nucleated RBC % Seg Neutrophils # Seg Neutrophils # Man Lymphocytes # (Manual) Monocytes # (Manual) Eosinophils # (Manual) PT 19.0 H INR 1.51 H Fibrinogen dRVVT Confirm Interp Factor V Activity POC ABG pH POC ABG pCO2 POC ABG pO2 Sodium Potassium Chloride Carbon Dioxide BUN Creatinine Glucose POC Glucose 151 H Lactic Acid Calcium Phosphorus Magnesium Direct Bilirubin ALT Alkaline Phosphatase Troponin T C-Reactive Protein Total Protein Albumin Triglycerides Cholesterol LDL Cholesterol Direct HDL Cholesterol Urine WBC (Auto) Urine Creatinine Urine Total Protein Vancomycin Trough Rheumatoid Factor Complement C4 Miscellaneous Test Crossmatch See Detail 10/09/16 10/09/16 10/09/16 11:46 16:20 16:43 WBC RBC Hgb 7.2 L Hct 22.2 L MCV MCH MCHC RDW Plt Count Lymph % (Auto) [place] % (Auto) Lymph # [place] # Seg Neutrophils % Seg Neuts % (Manual) Lymphocytes % (Manual) Monocytes % (Manual) Eosinophils % (Manual) Basophils % (Manual) Nucleated RBC % Seg Neutrophils # Seg Neutrophils # Man Lymphocytes # (Manual) Monocytes # (Manual) Eosinophils # (Manual) PT INR Fibrinogen dRVVT Confirm Interp Factor V Activity POC ABG pH POC ABG pCO2 POC ABG pO2 Sodium Potassium Chloride Carbon Dioxide BUN Creatinine Glucose POC Glucose 133 H 141 H Lactic Acid Calcium Phosphorus Magnesium Direct Bilirubin ALT Alkaline Phosphatase Troponin T C-Reactive Protein Total Protein Albumin Triglycerides Cholesterol LDL Cholesterol Direct HDL Cholesterol Urine WBC (Auto) Urine Creatinine Urine Total Protein Vancomycin Trough Rheumatoid Factor Complement C4 Miscellaneous Test Crossmatch 10/10/16 10/10/16 10/10/16 05:00 05:00 11:19 WBC 18.5 H RBC 2.19 L Hgb 6.4 L Hct 19.6 L* MCV MCH MCHC RDW 19.3 H Plt Count 93 L Lymph % (Auto) [place] % (Auto) Lymph # [place] # Seg Neutrophils % Seg Neuts % (Manual) Lymphocytes % (Manual) 10.0 L Monocytes % (Manual) Eosinophils % (Manual) Basophils % (Manual) Nucleated RBC % 4.0 H Seg Neutrophils # Seg Neutrophils # Man 11.3 H Lymphocytes # (Manual) Monocytes # (Manual) Eosinophils # (Manual) PT INR Fibrinogen dRVVT Confirm Interp Factor V Activity POC ABG pH POC ABG pCO2 POC ABG pO2 Sodium Potassium 5.7 H D Chloride Carbon Dioxide 16 L BUN 94 H Creatinine 3.1 H Glucose 131 H POC Glucose 153 H Lactic Acid Calcium 8.2 L Phosphorus 5.10 H Magnesium 2.40 H Direct Bilirubin 0.3 H ALT < 5 L Alkaline Phosphatase 319 H Troponin T C-Reactive Protein Total Protein 5.1 L Albumin 1.0 L Triglycerides Cholesterol LDL Cholesterol Direct HDL Cholesterol Urine WBC (Auto) Urine Creatinine Urine Total Protein Vancomycin Trough Rheumatoid Factor Complement C4 Miscellaneous Test Crossmatch 10/10/16 10/10/16 10/11/16 17:50 23:30 04:15 WBC RBC Hgb Hct MCV MCH MCHC RDW Plt Count Lymph % (Auto) [place] % (Auto) Lymph # [place] # Seg Neutrophils % Seg Neuts % (Manual) Lymphocytes % (Manual) Monocytes % (Manual) Eosinophils % (Manual) Basophils % (Manual) Nucleated RBC % Seg Neutrophils # Seg Neutrophils # Man Lymphocytes # (Manual) Monocytes # (Manual) Eosinophils # (Manual) PT INR Fibrinogen dRVVT Confirm Interp Factor V Activity POC ABG pH POC ABG pCO2 POC ABG pO2 Sodium Potassium Chloride 96.4 L Carbon Dioxide 21 L BUN 57 H Creatinine 2.1 H Glucose 151 H POC Glucose 146 H 141 H Lactic Acid Calcium 8.3 L Phosphorus Magnesium Direct Bilirubin ALT Alkaline Phosphatase Troponin T C-Reactive Protein Total Protein Albumin Triglycerides Cholesterol LDL Cholesterol Direct HDL Cholesterol Urine WBC (Auto) Urine Creatinine Urine Total Protein Vancomycin Trough Rheumatoid Factor Complement C4 Miscellaneous Test Crossmatch 10/11/16 10/11/16 10/11/16 04:15 04:15 05:30 WBC 28.3 H RBC 3.12 L Hgb 9.3 L Hct 28.7 L D MCV MCH MCHC RDW 17.7 H Plt Count 128 L Lymph % (Auto) [place] % (Auto) Lymph # [place] # Seg Neutrophils % Seg Neuts % (Manual) Lymphocytes % (Manual) Monocytes % (Manual) Eosinophils % (Manual) Basophils % (Manual) Nucleated RBC % Seg Neutrophils # Seg Neutrophils # Man Lymphocytes # (Manual) Monocytes # (Manual) Eosinophils # (Manual) PT INR Fibrinogen dRVVT Confirm Interp Factor V Activity POC ABG pH POC ABG pCO2 POC ABG pO2 Sodium Potassium Chloride Carbon Dioxide BUN Creatinine Glucose POC Glucose 167 H Lactic Acid Calcium Phosphorus Magnesium Direct Bilirubin ALT Alkaline Phosphatase Troponin T C-Reactive Protein 15.80 H Total Protein Albumin Triglycerides Cholesterol LDL Cholesterol Direct HDL Cholesterol Urine WBC (Auto) Urine Creatinine Urine Total Protein Vancomycin Trough Rheumatoid Factor Complement C4 Miscellaneous Test Crossmatch 10/11/16 10/11/16 10/11/16 11:40 15:49 23:57 WBC RBC Hgb Hct MCV MCH MCHC RDW Plt Count Lymph % (Auto) [place] % (Auto) Lymph # [place] # Seg Neutrophils % Seg Neuts % (Manual) Lymphocytes % (Manual) Monocytes % (Manual) Eosinophils % (Manual) Basophils % (Manual) Nucleated RBC % Seg Neutrophils # Seg Neutrophils # Man Lymphocytes # (Manual) Monocytes # (Manual) Eosinophils # (Manual) PT INR Fibrinogen dRVVT Confirm Interp Factor V Activity POC ABG pH POC ABG pCO2 POC ABG pO2 Sodium Potassium Chloride Carbon Dioxide BUN Creatinine Glucose POC Glucose 139 H 168 H 161 H Lactic Acid Calcium Phosphorus Magnesium Direct Bilirubin ALT Alkaline Phosphatase Troponin T C-Reactive Protein Total Protein Albumin Triglycerides Cholesterol LDL Cholesterol Direct HDL Cholesterol Urine WBC (Auto) Urine Creatinine Urine Total Protein Vancomycin Trough Rheumatoid Factor Complement C4 Miscellaneous Test Crossmatch 10/12/16 10/12/16 10/12/16 04:40 04:40 05:44 WBC 22.5 H RBC 2.88 L Hgb 8.8 L Hct 26.8 L MCV MCH MCHC RDW 17.8 H Plt Count Lymph % (Auto) [place] % (Auto) Lymph # [place] # Seg Neutrophils % Seg Neuts % (Manual) Lymphocytes % (Manual) Monocytes % (Manual) Eosinophils % (Manual) Basophils % (Manual) Nucleated RBC % Seg Neutrophils # Seg Neutrophils # Man Lymphocytes # (Manual) Monocytes # (Manual) Eosinophils # (Manual) PT INR Fibrinogen dRVVT Confirm Interp Factor V Activity POC ABG pH POC ABG pCO2 POC ABG pO2 Sodium 134 L Potassium Chloride 93.0 L Carbon Dioxide BUN 74 H Creatinine 2.5 H Glucose 137 H POC Glucose 158 H Lactic Acid Calcium 8.2 L Phosphorus Magnesium Direct Bilirubin ALT Alkaline Phosphatase Troponin T C-Reactive Protein Total Protein Albumin Triglycerides Cholesterol LDL Cholesterol Direct HDL Cholesterol Urine WBC (Auto) Urine Creatinine Urine Total Protein Vancomycin Trough Rheumatoid Factor Complement C4 Miscellaneous Test Crossmatch 10/12/16 10/12/16 10/12/16 12:27 18:18 23:46 WBC RBC Hgb Hct MCV MCH MCHC RDW Plt Count Lymph % (Auto) [place] % (Auto) Lymph # [place] # Seg Neutrophils % Seg Neuts % (Manual) Lymphocytes % (Manual) Monocytes % (Manual) Eosinophils % (Manual) Basophils % (Manual) Nucleated RBC % Seg Neutrophils # Seg Neutrophils # Man Lymphocytes # (Manual) Monocytes # (Manual) Eosinophils # (Manual) PT INR Fibrinogen dRVVT Confirm Interp Factor V Activity POC ABG pH POC ABG pCO2 POC ABG pO2 Sodium Potassium Chloride Carbon Dioxide BUN Creatinine Glucose POC Glucose 153 H 140 H 150 H Lactic Acid Calcium Phosphorus Magnesium Direct Bilirubin ALT Alkaline Phosphatase Troponin T C-Reactive Protein Total Protein Albumin Triglycerides Cholesterol LDL Cholesterol Direct HDL Cholesterol Urine WBC (Auto) Urine Creatinine Urine Total Protein Vancomycin Trough Rheumatoid Factor Complement C4 Miscellaneous Test Crossmatch 10/13/16 10/13/16 10/13/16 06:22 09:20 12:29 WBC RBC Hgb Hct MCV MCH MCHC RDW Plt Count Lymph % (Auto) [place] % (Auto) Lymph # [place] # Seg Neutrophils % Seg Neuts % (Manual) Lymphocytes % (Manual) Monocytes % (Manual) Eosinophils % (Manual) Basophils % (Manual) Nucleated RBC % Seg Neutrophils # Seg Neutrophils # Man Lymphocytes # (Manual) Monocytes # (Manual) Eosinophils # (Manual) PT INR Fibrinogen dRVVT Confirm Interp Factor V Activity POC ABG pH POC ABG pCO2 POC ABG pO2 Sodium Potassium Chloride Carbon Dioxide BUN Creatinine Glucose POC Glucose 165 H 193 H Lactic Acid Calcium Phosphorus Magnesium Direct Bilirubin ALT Alkaline Phosphatase Troponin T C-Reactive Protein Total Protein Albumin Triglycerides Cholesterol LDL Cholesterol Direct HDL Cholesterol Urine WBC (Auto) Urine Creatinine Urine Total Protein Vancomycin Trough Rheumatoid Factor Complement C4 Miscellaneous Test Flexitest 1 H Crossmatch 10/13/16 10/13/16 10/13/16 18:09 Unknown Unknown WBC 23.4 H RBC 2.83 L Hgb 8.7 L Hct 26.1 L MCV MCH MCHC RDW 18.1 H Plt Count Lymph % (Auto) [place] % (Auto) Lymph # [place] # Seg Neutrophils % Seg Neuts % (Manual) Lymphocytes % (Manual) Monocytes % (Manual) Eosinophils % (Manual) Basophils % (Manual) Nucleated RBC % Seg Neutrophils # Seg Neutrophils # Man Lymphocytes # (Manual) Monocytes # (Manual) Eosinophils # (Manual) PT INR Fibrinogen dRVVT Confirm Interp Factor V Activity POC ABG pH POC ABG pCO2 POC ABG pO2 Sodium Potassium Chloride 95.8 L Carbon Dioxide BUN 82 H Creatinine 2.6 H Glucose 152 H POC Glucose 166 H Lactic Acid Calcium Phosphorus Magnesium Direct Bilirubin ALT Alkaline Phosphatase Troponin T C-Reactive Protein Total Protein Albumin Triglycerides Cholesterol LDL Cholesterol Direct HDL Cholesterol Urine WBC (Auto) Urine Creatinine Urine Total Protein Vancomycin Trough Rheumatoid Factor Complement C4 Miscellaneous Test Crossmatch 10/14/16 10/14/16 10/14/16 05:38 06:35 08:10 WBC 20.7 H RBC 2.81 L Hgb 8.4 L Hct 27.2 L MCV MCH MCHC RDW 19.4 H Plt Count Lymph % (Auto) [place] % (Auto) Lymph # [place] # Seg Neutrophils % Seg Neuts % (Manual) Lymphocytes % (Manual) Monocytes % (Manual) Eosinophils % (Manual) Basophils % (Manual) Nucleated RBC % Seg Neutrophils # Seg Neutrophils # Man Lymphocytes # (Manual) Monocytes # (Manual) Eosinophils # (Manual) PT INR Fibrinogen dRVVT Confirm Interp Factor V Activity POC ABG pH POC ABG pCO2 POC ABG pO2 Sodium Potassium Chloride Carbon Dioxide BUN 58 H Creatinine 1.9 H Glucose 169 H POC Glucose 195 H Lactic Acid Calcium Phosphorus Magnesium Direct Bilirubin ALT Alkaline Phosphatase Troponin T C-Reactive Protein Total Protein Albumin Triglycerides Cholesterol LDL Cholesterol Direct HDL Cholesterol Urine WBC (Auto) Urine Creatinine Urine Total Protein Vancomycin Trough Rheumatoid Factor Complement C4 Miscellaneous Test Crossmatch 10/14/16 10/14/16 10/14/16 11:44 17:13 23:28 WBC RBC Hgb Hct MCV MCH MCHC RDW Plt Count Lymph % (Auto) [place] % (Auto) Lymph # [place] # Seg Neutrophils % Seg Neuts % (Manual) Lymphocytes % (Manual) Monocytes % (Manual) Eosinophils % (Manual) Basophils % (Manual) Nucleated RBC % Seg Neutrophils # Seg Neutrophils # Man Lymphocytes # (Manual) Monocytes # (Manual) Eosinophils # (Manual) PT INR Fibrinogen dRVVT Confirm Interp Factor V Activity POC ABG pH POC ABG pCO2 POC ABG pO2 Sodium Potassium Chloride Carbon Dioxide BUN Creatinine Glucose POC Glucose 174 H 121 H 151 H Lactic Acid Calcium Phosphorus Magnesium Direct Bilirubin ALT Alkaline Phosphatase Troponin T C-Reactive Protein Total Protein Albumin Triglycerides Cholesterol LDL Cholesterol Direct HDL Cholesterol Urine WBC (Auto) Urine Creatinine Urine Total Protein Vancomycin Trough Rheumatoid Factor Complement C4 Miscellaneous Test Crossmatch 10/15/16 10/15/16 10/15/16 05:06 12:26 17:48 WBC RBC Hgb Hct MCV MCH MCHC RDW Plt Count Lymph % (Auto) [place] % (Auto) Lymph # [place] # Seg Neutrophils % Seg Neuts % (Manual) Lymphocytes % (Manual) Monocytes % (Manual) Eosinophils % (Manual) Basophils % (Manual) Nucleated RBC % Seg Neutrophils # Seg Neutrophils # Man Lymphocytes # (Manual) Monocytes # (Manual) Eosinophils # (Manual) PT INR Fibrinogen dRVVT Confirm Interp Factor V Activity POC ABG pH POC ABG pCO2 POC ABG pO2 Sodium Potassium Chloride Carbon Dioxide BUN Creatinine Glucose POC Glucose 151 H 149 H 153 H Lactic Acid Calcium Phosphorus Magnesium Direct Bilirubin ALT Alkaline Phosphatase Troponin T C-Reactive Protein Total Protein Albumin Triglycerides Cholesterol LDL Cholesterol Direct HDL Cholesterol Urine WBC (Auto) Urine Creatinine Urine Total Protein Vancomycin Trough Rheumatoid Factor Complement C4 Miscellaneous Test Crossmatch 10/15/16 10/15/16 10/16/16 Unknown Unknown 00:02 WBC 23.4 H RBC 2.78 L Hgb 8.5 L Hct 25.7 L MCV MCH MCHC RDW 18.7 H Plt Count Lymph % (Auto) [place] % (Auto) Lymph # [place] # Seg Neutrophils % Seg Neuts % (Manual) Lymphocytes % (Manual) Monocytes % (Manual) Eosinophils % (Manual) Basophils % (Manual) Nucleated RBC % Seg Neutrophils # Seg Neutrophils # Man Lymphocytes # (Manual) Monocytes # (Manual) Eosinophils # (Manual) PT INR Fibrinogen dRVVT Confirm Interp Factor V Activity POC ABG pH POC ABG pCO2 POC ABG pO2 Sodium Potassium Chloride Carbon Dioxide BUN 73 H Creatinine 2.3 H Glucose 120 H POC Glucose 137 H Lactic Acid Calcium Phosphorus Magnesium Direct Bilirubin ALT Alkaline Phosphatase Troponin T C-Reactive Protein Total Protein Albumin Triglycerides Cholesterol LDL Cholesterol Direct HDL Cholesterol Urine WBC (Auto) Urine Creatinine Urine Total Protein Vancomycin Trough Rheumatoid Factor Complement C4 Miscellaneous Test Crossmatch 10/16/16 10/16/16 10/16/16 05:44 06:25 06:25 WBC 22.5 H RBC 2.76 L Hgb 8.3 L Hct 25.2 L MCV MCH MCHC RDW 18.3 H Plt Count Lymph % (Auto) [place] % (Auto) Lymph # [place] # Seg Neutrophils % Seg Neuts % (Manual) Lymphocytes % (Manual) Monocytes % (Manual) Eosinophils % (Manual) Basophils % (Manual) Nucleated RBC % Seg Neutrophils # Seg Neutrophils # Man Lymphocytes # (Manual) Monocytes # (Manual) Eosinophils # (Manual) PT INR Fibrinogen dRVVT Confirm Interp Factor V Activity POC ABG pH POC ABG pCO2 POC ABG pO2 Sodium Potassium Chloride Carbon Dioxide BUN 92 H Creatinine 3.0 H Glucose 138 H POC Glucose 110 H Lactic Acid Calcium Phosphorus Magnesium Direct Bilirubin ALT Alkaline Phosphatase Troponin T C-Reactive Protein Total Protein Albumin Triglycerides Cholesterol LDL Cholesterol Direct HDL Cholesterol Urine WBC (Auto) Urine Creatinine Urine Total Protein Vancomycin Trough Rheumatoid Factor Complement C4 Miscellaneous Test Crossmatch 10/16/16 10/16/16 10/16/16 11:27 11:48 17:36 WBC RBC Hgb Hct MCV MCH MCHC RDW Plt Count Lymph % (Auto) [place] % (Auto) Lymph # [place] # Seg Neutrophils % Seg Neuts % (Manual) Lymphocytes % (Manual) Monocytes % (Manual) Eosinophils % (Manual) Basophils % (Manual) Nucleated RBC % Seg Neutrophils # Seg Neutrophils # Man Lymphocytes # (Manual) Monocytes # (Manual) Eosinophils # (Manual) PT INR Fibrinogen dRVVT Confirm Interp Factor V Activity POC ABG pH 7.582 H POC ABG pCO2 27.4 L POC ABG pO2 110 H Sodium Potassium Chloride Carbon Dioxide BUN Creatinine Glucose POC Glucose 121 H 133 H Lactic Acid Calcium Phosphorus Magnesium Direct Bilirubin ALT Alkaline Phosphatase Troponin T C-Reactive Protein Total Protein Albumin Triglycerides Cholesterol LDL Cholesterol Direct HDL Cholesterol Urine WBC (Auto) Urine Creatinine Urine Total Protein Vancomycin Trough Rheumatoid Factor Complement C4 Miscellaneous Test Crossmatch 10/16/16 10/17/16 10/17/16 20:48 04:24 04:24 WBC 21.4 H RBC 2.72 L Hgb 8.0 L Hct 25.2 L MCV MCH MCHC RDW 18.0 H Plt Count Lymph % (Auto) [place] % (Auto) Lymph # [place] # Seg Neutrophils % Seg Neuts % (Manual) Lymphocytes % (Manual) Monocytes % (Manual) Eosinophils % (Manual) Basophils % (Manual) Nucleated RBC % Seg Neutrophils # Seg Neutrophils # Man Lymphocytes # (Manual) Monocytes # (Manual) Eosinophils # (Manual) PT INR Fibrinogen dRVVT Confirm Interp Factor V Activity POC ABG pH 7.561 H POC ABG pCO2 24.4 L POC ABG pO2 77 L Sodium 148 H Potassium Chloride Carbon Dioxide BUN 104 H Creatinine 3.0 H Glucose 149 H POC Glucose Lactic Acid Calcium Phosphorus Magnesium Direct Bilirubin ALT Alkaline Phosphatase 138 H Troponin T C-Reactive Protein Total Protein 6.2 L Albumin 1.5 L Triglycerides Cholesterol LDL Cholesterol Direct HDL Cholesterol Urine WBC (Auto) Urine Creatinine Urine Total Protein Vancomycin Trough Rheumatoid Factor Complement C4 Miscellaneous Test Crossmatch 10/17/16 10/17/16 10/17/16 06:02 12:17 17:14 WBC RBC Hgb Hct MCV MCH MCHC RDW Plt Count Lymph % (Auto) [place] % (Auto) Lymph # [place] # Seg Neutrophils % Seg Neuts % (Manual) Lymphocytes % (Manual) Monocytes % (Manual) Eosinophils % (Manual) Basophils % (Manual) Nucleated RBC % Seg Neutrophils # Seg Neutrophils # Man Lymphocytes # (Manual) Monocytes # (Manual) Eosinophils # (Manual) PT INR Fibrinogen dRVVT Confirm Interp Factor V Activity POC ABG pH POC ABG pCO2 POC ABG pO2 Sodium Potassium Chloride Carbon Dioxide BUN Creatinine Glucose POC Glucose 170 H 167 H 126 H Lactic Acid Calcium Phosphorus Magnesium Direct Bilirubin ALT Alkaline Phosphatase Troponin T C-Reactive Protein Total Protein Albumin Triglycerides Cholesterol LDL Cholesterol Direct HDL Cholesterol Urine WBC (Auto) Urine Creatinine Urine Total Protein Vancomycin Trough Rheumatoid Factor Complement C4 Miscellaneous Test Crossmatch 10/17/16 10/18/16 10/18/16 23:17 04:00 04:00 WBC 20.7 H RBC 2.47 L Hgb 7.4 L Hct 22.9 L MCV MCH MCHC RDW 17.5 H Plt Count Lymph % (Auto) [place] % (Auto) Lymph # [place] # Seg Neutrophils % Seg Neuts % (Manual) Lymphocytes % (Manual) Monocytes % (Manual) Eosinophils % (Manual) Basophils % (Manual) Nucleated RBC % Seg Neutrophils # Seg Neutrophils # Man Lymphocytes # (Manual) Monocytes # (Manual) Eosinophils # (Manual) PT INR Fibrinogen dRVVT Confirm Interp Factor V Activity POC ABG pH POC ABG pCO2 POC ABG pO2 Sodium 149 H Potassium Chloride 107.9 H Carbon Dioxide 20 L BUN 117 H Creatinine 3.2 H Glucose 119 H POC Glucose 121 H Lactic Acid Calcium Phosphorus Magnesium Direct Bilirubin ALT Alkaline Phosphatase Troponin T C-Reactive Protein Total Protein Albumin Triglycerides Cholesterol LDL Cholesterol Direct HDL Cholesterol Urine WBC (Auto) Urine Creatinine Urine Total Protein Vancomycin Trough Rheumatoid Factor Complement C4 Miscellaneous Test Crossmatch 10/18/16 10/18/16 10/18/16 05:23 10:46 17:30 WBC RBC Hgb Hct MCV MCH MCHC RDW Plt Count Lymph % (Auto) [place] % (Auto) Lymph # [place] # Seg Neutrophils % Seg Neuts % (Manual) Lymphocytes % (Manual) Monocytes % (Manual) Eosinophils % (Manual) Basophils % (Manual) Nucleated RBC % Seg Neutrophils # Seg Neutrophils # Man Lymphocytes # (Manual) Monocytes # (Manual) Eosinophils # (Manual) PT INR Fibrinogen dRVVT Confirm Interp Factor V Activity POC ABG pH POC ABG pCO2 POC ABG pO2 Sodium Potassium Chloride Carbon Dioxide BUN Creatinine Glucose POC Glucose 119 H 155 H 124 H Lactic Acid Calcium Phosphorus Magnesium Direct Bilirubin ALT Alkaline Phosphatase Troponin T C-Reactive Protein Total Protein Albumin Triglycerides Cholesterol LDL Cholesterol Direct HDL Cholesterol Urine WBC (Auto) Urine Creatinine Urine Total Protein Vancomycin Trough Rheumatoid Factor Complement C4 Miscellaneous Test Crossmatch 10/19/16 10/19/16 10/19/16 04:00 04:00 05:25 WBC 17.4 H RBC 2.54 L Hgb 7.7 L Hct 23.6 L MCV MCH MCHC RDW 17.3 H Plt Count Lymph % (Auto) [place] % (Auto) Lymph # [place] # Seg Neutrophils % Seg Neuts % (Manual) Lymphocytes % (Manual) Monocytes % (Manual) Eosinophils % (Manual) Basophils % (Manual) Nucleated RBC % Seg Neutrophils # Seg Neutrophils # Man Lymphocytes # (Manual) Monocytes # (Manual) Eosinophils # (Manual) PT INR Fibrinogen dRVVT Confirm Interp Factor V Activity POC ABG pH POC ABG pCO2 POC ABG pO2 Sodium Potassium Chloride Carbon Dioxide BUN 72 H Creatinine 2.1 H Glucose 116 H POC Glucose 119 H Lactic Acid Calcium Phosphorus Magnesium Direct Bilirubin ALT Alkaline Phosphatase Troponin T C-Reactive Protein Total Protein Albumin Triglycerides Cholesterol LDL Cholesterol Direct HDL Cholesterol Urine WBC (Auto) Urine Creatinine Urine Total Protein Vancomycin Trough Rheumatoid Factor Complement C4 Miscellaneous Test Crossmatch 10/19/16 10/19/16 10/20/16 11:46 23:59 06:00 WBC RBC Hgb Hct MCV MCH MCHC RDW Plt Count Lymph % (Auto) [place] % (Auto) Lymph # [place] # Seg Neutrophils % Seg Neuts % (Manual) Lymphocytes % (Manual) Monocytes % (Manual) Eosinophils % (Manual) Basophils % (Manual) Nucleated RBC % Seg Neutrophils # Seg Neutrophils # Man Lymphocytes # (Manual) Monocytes # (Manual) Eosinophils # (Manual) PT INR Fibrinogen dRVVT Confirm Interp Factor V Activity POC ABG pH POC ABG pCO2 POC ABG pO2 Sodium Potassium Chloride Carbon Dioxide 17 L BUN 94 H Creatinine 2.7 H Glucose POC Glucose 116 H 117 H Lactic Acid Calcium Phosphorus Magnesium Direct Bilirubin ALT Alkaline Phosphatase Troponin T C-Reactive Protein Total Protein Albumin Triglycerides Cholesterol LDL Cholesterol Direct HDL Cholesterol Urine WBC (Auto) Urine Creatinine Urine Total Protein Vancomycin Trough Rheumatoid Factor Complement C4 Miscellaneous Test Crossmatch 10/20/16 06:00 WBC 19.7 H RBC 2.51 L Hgb 7.7 L Hct 23.5 L MCV MCH MCHC RDW 17.5 H Plt Count Lymph % (Auto) [place] % (Auto) Lymph # [place] # Seg Neutrophils % Seg Neuts % (Manual) Lymphocytes % (Manual) Monocytes % (Manual) Eosinophils % (Manual) Basophils % (Manual) Nucleated RBC % Seg Neutrophils # Seg Neutrophils # Man Lymphocytes # (Manual) Monocytes # (Manual) Eosinophils # (Manual) PT INR Fibrinogen dRVVT Confirm Interp Factor V Activity POC ABG pH POC ABG pCO2 POC ABG pO2 Sodium Potassium Chloride Carbon Dioxide BUN Creatinine Glucose POC Glucose Lactic Acid Calcium Phosphorus Magnesium Direct Bilirubin ALT Alkaline Phosphatase Troponin T C-Reactive Protein Total Protein Albumin Triglycerides Cholesterol LDL Cholesterol Direct HDL Cholesterol Urine WBC (Auto) Urine Creatinine Urine Total Protein Vancomycin Trough Rheumatoid Factor Complement C4 Miscellaneous Test Crossmatch
--- NOTE | 2016-10-20 14:29 | Progress Note ---
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 Continue dialysis prn. Will plan for HD tomorrow * Pressors prn MAP>65 * Rate control per cardiology * Transfusion of pRBC per primary team * Abx/antifungal per ID * Surgery recommendations noted * Vent management per critical care * Dose medications for renal function * Avoid potential nephrotoxins Subjective Date of service: 10/20/16 Principal diagnosis: Acute resp failure on MVS; S/P Acute CVA; Acute Encephalopathy; JUANITA Interval history: No acute events overnight. Objective - Vital Signs Vital signs: Vital Signs - 12hr 10/20/16 10/20/16 10/20/16 02:30 03:00 03:13 Temperature Pulse Rate 110 H 109 H 114 H Pulse Rate [ From Monitor] Respiratory 37 H 35 H Rate Respiratory Rate [ Generalized] Blood Pressure 172/98 158/96 158/96 O2 Sat by Pulse 100 98 99 Oximetry 10/20/16 10/20/16 10/20/16 03:15 03:30 03:36 Temperature 100.3 F H Pulse Rate 105 H Pulse Rate [ From Monitor] Respiratory 40 H Rate Respiratory 37 H Rate [ Generalized] Blood Pressure 145/84 O2 Sat by Pulse 100 Oximetry 10/20/16 10/20/16 10/20/16 04:00 04:30 05:01 Temperature Pulse Rate 112 H 108 H Pulse Rate [ 108 H From Monitor] Respiratory 35 H 25 H Rate Respiratory Rate [ Generalized] Blood Pressure 155/96 132/86 171/109 O2 Sat by Pulse 100 100 Oximetry 10/20/16 10/20/16 10/20/16 05:30 05:58 06:00 Temperature Pulse Rate 107 H 101 H 101 H Pulse Rate [ From Monitor] Respiratory 27 H 26 H Rate Respiratory Rate [ Generalized] Blood Pressure 158/92 146/82 146/82 O2 Sat by Pulse 100 Oximetry 10/20/16 10/20/16 10/20/16 06:30 07:00 07:30 Temperature Pulse Rate 101 H 92 H 90 Pulse Rate [ From Monitor] Respiratory 24 22 23 Rate Respiratory Rate [ Generalized] Blood Pressure 141/84 130/74 123/68 O2 Sat by Pulse 100 100 100 Oximetry 10/20/16 10/20/16 10/20/16 07:57 08:00 08:05 Temperature 98.2 F Pulse Rate 88 93 H Pulse Rate [ From Monitor] Respiratory 18 36 H Rate Respiratory Rate [ Generalized] Blood Pressure 124/61 124/61 O2 Sat by Pulse 100 96 Oximetry 10/20/16 10/20/16 10/20/16 08:30 12:00 12:36 Temperature 98.2 F Pulse Rate 94 H 114 H Pulse Rate [ From Monitor] Respiratory 21 38 H Rate Respiratory Rate [ Generalized] Blood Pressure 144/77 165/100 O2 Sat by Pulse 97 99 Oximetry - General Appearance General appearance: intubated (via trach) EENT: ATNC Respiratory: Present: Other (coarse anterior breath sounds) Cardiology: regular, S1S2 Gastrointestinal: no distended, other (JUAN drain) Integumentary: no rash Neurologic: other (nonresponsive) Musculoskeletal: other (trace edema) - Lab 10/20/16 06:00 10/20/16 06:00 Most recent lab results Calcium 9.2 mg/dL (8.4-10.2) 10/20/16 06:00 Phosphorus 3.20 mg/dL (2.5-4.5) D 10/20/16 06:00 Magnesium 1.90 mg/dL (1.7-2.3) 10/20/16 06:00 Urine Creatinine 54.8 mg/dL (0.1-20.0) H 09/21/16 12:00 Urine Sodium 36 mEq/L 09/16/16 19:19 Urine Total Protein 16 mg/dL (5-11.8) H 09/16/16 19:19
--- NOTE | 2016-10-20 15:06 | Progress Note ---
Assessment and Plan Will obtain a follow up CT Scan now that the drain it out. If a fluid collection is seen that is not draining out the port/drain site then will need Interventional radiology to set up CT guided drainage. ATBX per ID. Continue NPO Subjective Date of service: 10/20/16 Patient Reports: Positive: other (No change. Intubated and with NG in place.) Objective Vital Signs - 12hr 10/20/16 10/20/16 10/20/16 03:13 03:15 03:30 Temperature Pulse Rate 114 H 105 H Pulse Rate [ From Monitor] Respiratory 40 H Rate Respiratory 37 H Rate [ Generalized] Blood Pressure 158/96 145/84 O2 Sat by Pulse 99 100 Oximetry 10/20/16 10/20/16 10/20/16 03:36 04:00 04:30 Temperature 100.3 F H Pulse Rate 112 H 108 H Pulse Rate [ 108 H From Monitor] Respiratory 35 H 25 H Rate Respiratory Rate [ Generalized] Blood Pressure 155/96 132/86 O2 Sat by Pulse 100 100 Oximetry 10/20/16 10/20/16 10/20/16 05:01 05:30 05:58 Temperature Pulse Rate 107 H 101 H Pulse Rate [ From Monitor] Respiratory 27 H Rate Respiratory Rate [ Generalized] Blood Pressure 171/109 158/92 146/82 O2 Sat by Pulse Oximetry 10/20/16 10/20/16 10/20/16 06:00 06:30 07:00 Temperature Pulse Rate 101 H 101 H 92 H Pulse Rate [ From Monitor] Respiratory 26 H 24 22 Rate Respiratory Rate [ Generalized] Blood Pressure 146/82 141/84 130/74 O2 Sat by Pulse 100 100 100 Oximetry 10/20/16 10/20/16 10/20/16 07:30 07:57 08:00 Temperature 98.2 F Pulse Rate 90 88 Pulse Rate [ From Monitor] Respiratory 23 18 Rate Respiratory Rate [ Generalized] Blood Pressure 123/68 124/61 O2 Sat by Pulse 100 100 Oximetry 10/20/16 10/20/16 10/20/16 08:05 08:30 12:00 Temperature 98.2 F Pulse Rate 93 H 94 H Pulse Rate [ From Monitor] Respiratory 36 H 21 Rate Respiratory Rate [ Generalized] Blood Pressure 124/61 144/77 O2 Sat by Pulse 96 97 Oximetry 10/20/16 12:36 Temperature Pulse Rate 114 H Pulse Rate [ From Monitor] Respiratory 38 H Rate Respiratory Rate [ Generalized] Blood Pressure 165/100 O2 Sat by Pulse 99 Oximetry - Abdomen soft, bowel sounds hypoactive, other (Wounds draining some purulent fluid. ) - Labs 10/20/16 06:00 10/20/16 06:00 Diabetes panel 10/20/16 Range/Units 06:00 Sodium 140 (137-145) mmol/L Potassium 4.4 D (3.6-5.0) mmol/L Chloride 103.1 (98-107) mmol/L Carbon Dioxide 17 L (22-30) mmol/L BUN 94 H (7-17) mg/dL Creatinine 2.7 H (0.7-1.2) mg/dL Glucose 85 (65-100) mg/dL Calcium 9.2 (8.4-10.2) mg/dL Calcium panel 10/20/16 Range/Units 06:00 Calcium 9.2 (8.4-10.2) mg/dL Phosphorus 3.20 D (2.5-4.5) mg/dL Pituitary panel 10/20/16 Range/Units 06:00 Sodium 140 (137-145) mmol/L Potassium 4.4 D (3.6-5.0) mmol/L Chloride 103.1 (98-107) mmol/L Carbon Dioxide 17 L (22-30) mmol/L BUN 94 H (7-17) mg/dL Creatinine 2.7 H (0.7-1.2) mg/dL Glucose 85 (65-100) mg/dL Calcium 9.2 (8.4-10.2) mg/dL Adrenal panel 10/20/16 Range/Units 06:00 Sodium 140 (137-145) mmol/L Potassium 4.4 D (3.6-5.0) mmol/L Chloride 103.1 (98-107) mmol/L Carbon Dioxide 17 L (22-30) mmol/L BUN 94 H (7-17) mg/dL Creatinine 2.7 H (0.7-1.2) mg/dL Glucose 85 (65-100) mg/dL Calcium 9.2 (8.4-10.2) mg/dL
[2016-10-20] MEDS: MERREM 1,000 MG in NACL 0.9% 100 ML IV SCH (17:29)
[2016-10-20] MEDS: PROTONIX IV SCH (17:29)
[2016-10-20] MEDS: DIFLUCAN 200 MG/100 ML BAG IV SCH (17:30)
[2016-10-20] MEDS ORDERED: TPN ADULT 2,016 ML IV SCH (20:00)
[2016-10-21] MEDS: LOPRESSOR IV SCH ×7 (03:00→22:00)
[2016-10-21 06:11] LABS: BUN/Creatinine Ratio 36.66; Calcium 9.3 mg/dL (8.4-10.2)
[2016-10-21] MEDS: HumuLIN R SUB-Q SCH ×4 (06:45→18:56)
--- NOTE | 2016-10-21 07:15 | Progress Note ---
Assessment and Plan Assessment and plan: --Hyperkalemia; Kayexalate 15 g 1 dose Nephrology following --Acute hypoxic respiratory failure Vent dependent, Status post trach and peg, pulmonary following --Severe sepsis with septic shock UTI/candidemia/peritonitis due to gastric perforation from dislodged PEG Off pressors, on vancomycin and Meropenem as per ID --Acute massive left MCA CVA, with mass effect Antiplatelets and statins Supportive care --Toxic metabolic Encephalopathy Unresponsive, supportive care, poor prognosis --Paroxysmal A. fib Status post failed conversion on 09/25 Received amiodarone drip , currently On beta blockers No anticoagulation due to anemia/thrombocytopenia, massive stroke --Acute on chronic kidney disease, On dialysis prn managed by Nephrology . Creatinine 2.7 today --Dislodged PEG Status post wedge gastrectomy, repair of gastric perforation, abdominal washout and drain placement --Acute blood loss anemia requiring multiple PRBC transfusions. Hemoglobin 7.4 today . Repeat stool occult blood positive. GI Physician was following, now signed off. Conservative management Monitor H&H closely, --Candidemia. completed micofungin Toxic metabolic encephalopathy,unresponsive. neurology following --Diabetes mellitus type 2 Insulin/SSI --Leukocytosis . WBC trending down --Severe protein caloric malnutrition, nutrition supplements to proceeding --s/p Thrombocytopenia. Now resolved --DVT prophylaxis SCDs, no pharmacological agent given anemia requiring multiple PRBC transfusions , thrombocytopenia, massive stroke --Full code status, very poor prognosis Had a family meeting Monday10/10/16 plan of care poor prognosis was discussed. Present at meeting was the Risk management staff, assessment services manager and hospitalist , patient's son and patients' sister. Had another family meeting Monday10/14/16 at 10:00am with Dr. Nazario, , Screen Handler and patient's daughter. We discussed diagnosis,plan and prognosis, and all her questions were answered. Dispo. Very poor prognosis. Patient needs LTAC placement/hospice Critical care time 31 minutes History Interval history: Patient seen and evaluated medical records reviewed No new events reported by the nursing staff, patient remains intubated on ventilatory support Unresponsive, awaiting LTAC placement Hospitalist Physical - Constitutional Vitals: Temp Pulse Resp BP Pulse Ox 100.3 F H 111 H 27 H 144/84 97 10/21/16 04:00 10/21/16 06:00 10/21/16 06:00 10/21/16 06:00 10/21/16 06:00 General appearance: Present: no acute distress, obese, other (on vent, non- responsive) - EENT Eyes: Present: PERRL, EOM intact - Neck Neck: Present: supple, normal ROM - Respiratory Respiratory effort: normal Respiratory: bilateral: diminished, rhonchi, negative: rales, wheezing - Cardiovascular Rhythm: regular Heart Sounds: Present: S1 & S2 - Extremities Extremities: no ischemia, abnormal (contacted) Extremity abnormal: edema - Abdominal General gastrointestinal: soft, non-tender, non-distended, normal bowel sounds - Integumentary Integumentary: Present: clear, warm - Psychiatric Psychiatric: other (unresponsive) - Neurologic Neurologic: other (unresponsive) Results - Labs CBC & Chem 7: 10/20/16 06:00 10/21/16 04:00 Labs: Laboratory Last Values WBC 19.7 K/mm3 (4.5-11.0) H 10/20/16 06:00 RBC 2.51 M/mm3 (3.65-5.03) L 10/20/16 06:00 Hgb 7.7 gm/dl (10.1-14.3) L 10/20/16 06:00 Hct 23.5 % (30.3-42.9) L 10/20/16 06:00 MCV 94 fl (79-97) 10/20/16 06:00 MCH 31 pg (28-32) 10/20/16 06:00 MCHC 33 % (30-34) 10/20/16 06:00 RDW 17.5 % (13.2-15.2) H 10/20/16 06:00 Plt Count 286 K/mm3 (140-440) 10/20/16 06:00 Lymph % (Auto) 6.9 % (13.4-35.0) L 09/21/16 07:45 [place] % (Auto) 0.5 % (0.0-7.3) 10/03/16 05:10 Eos % (Auto) 1.3 % (0.0-4.3) 10/03/16 05:10 Baso % (Auto) 0.2 % (0.0-1.8) 09/21/16 07:45 Lymph # 0.9 K/mm3 (1.2-5.4) L 09/21/16 07:45 Montague # 0.1 K/mm3 (0.0-0.8) 10/03/16 05:10 Eos # 0.2 K/mm3 (0.0-0.4) 10/03/16 05:10 Baso # 0.0 K/mm3 (0.0-0.1) 10/03/16 05:10 Add Manual Diff Complete 10/10/16 05:00 Total Counted 100 10/10/16 05:00 Seg Neutrophils % Consumer Educator 10/03/16 05:10 Seg Neuts % (Manual) 61.0 % (40.0-70.0) 10/10/16 05:00 Band Neutrophils % 24.0 % 10/10/16 05:00 Lymphocytes % (Manual) 10.0 % (13.4-35.0) L 10/10/16 05:00 Reactive Lymphs % (Man) 0 % 10/10/16 05:00 Monocytes % (Manual) 2.0 % (0.0-7.3) 10/10/16 05:00 Eosinophils % (Manual) 0 % (0.0-4.3) 10/10/16 05:00 Basophils % (Manual) 0 % (0.0-1.8) 10/10/16 05:00 Metamyelocytes % 3.0 % 10/10/16 05:00 Myelocytes % 0 % 10/10/16 05:00 Promyelocytes % 0 % 10/10/16 05:00 Blast Cells % 0 % 10/10/16 05:00 Nucleated RBC % 4.0 % (0.0-0.9) H 10/10/16 05:00 Seg Neutrophils # 11.9 K/mm3 (1.8-7.7) H 10/03/16 05:10 Seg Neutrophils # Man 11.3 K/mm3 (1.8-7.7) H 10/10/16 05:00 Band Neutrophils # 4.4 K/mm3 10/10/16 05:00 Lymphocytes # (Manual) 1.9 K/mm3 (1.2-5.4) 10/10/16 05:00 Abs React Lymphs (Man) 0.0 K/mm3 10/10/16 05:00 Monocytes # (Manual) 0.4 K/mm3 (0.0-0.8) 10/10/16 05:00 Eosinophils # (Manual) 0.0 K/mm3 (0.0-0.4) 10/10/16 05:00 Basophils # (Manual) 0.0 K/mm3 (0.0-0.1) 10/10/16 05:00 Metamyelocytes # 0.6 K/mm3 10/10/16 05:00 Myelocytes # 0.0 K/mm3 10/10/16 05:00 Promyelocytes # 0.0 K/mm3 10/10/16 05:00 Blast Cells # 0.0 K/mm3 10/10/16 05:00 Pathologist Review 09/13/16 04:00 WBC Morphology Not Reportable 10/10/16 05:00 Hypersegmented Neuts Not Reportable 10/10/16 05:00 Hyposegmented Neuts Not Reportable 10/10/16 05:00 Hypogranular Neuts Not Reportable 10/10/16 05:00 Smudge Cells Not Reportable 10/10/16 05:00 Toxic Granulation Not Reportable 10/10/16 05:00 Toxic Vacuolation Not Reportable 10/10/16 05:00 Dohle Bodies Not Reportable 10/10/16 05:00 Pelger-Huet Anomaly Not Reportable 10/10/16 05:00 Jasmina Rods Not Reportable 10/10/16 05:00 Platelet Estimate Consistent w auto 10/10/16 05:00 Clumped Platelets Not Reportable 10/10/16 05:00 Plt Clumps, EDTA Not Reportable 10/10/16 05:00 Large Platelets Not Reportable 10/10/16 05:00 Giant Platelets Not Reportable 10/10/16 05:00 Platelet Satelliting Not Reportable 10/10/16 05:00 Plt Morphology Comment Not Reportable 10/10/16 05:00 RBC Morphology Not Reportable 10/10/16 05:00 Dimorphic RBCs Not Reportable 10/10/16 05:00 Polychromasia Rare 10/10/16 05:00 Hypochromasia 1+ 10/10/16 05:00 Poikilocytosis Not Reportable 10/10/16 05:00 Anisocytosis 1+ 10/10/16 05:00 Microcytosis Not Reportable 10/10/16 05:00 Macrocytosis 1+ 10/10/16 05:00 Spherocytes Not Reportable 10/10/16 05:00 Pappenheimer Bodies Not Reportable 10/10/16 05:00 Sickle Cells Not Reportable 10/10/16 05:00 Target Cells Not Reportable 10/10/16 05:00 Tear Drop Cells Not Reportable 10/10/16 05:00 Ovalocytes Not Reportable 10/10/16 05:00 Stomatocytes Few 10/06/16 03:50 Helmet Cells Not Reportable 10/10/16 05:00 Monet-Macy Bodies Not Reportable 10/10/16 05:00 Troy Rings Not Reportable 10/10/16 05:00 Chuck Cells Not Reportable 10/10/16 05:00 Bite Cells Not Reportable 10/10/16 05:00 Crenated Cell Not Reportable 10/10/16 05:00 Elliptocytes Not Reportable 10/10/16 05:00 Acanthocytes (Spur) Not Reportable 10/10/16 05:00 Rouleaux Not Reportable 10/10/16 05:00 Hemoglobin C Crystals Not Reportable 10/10/16 05:00 Schistocytes Not Reportable 10/10/16 05:00 Malaria parasites Not Reportable 10/10/16 05:00 ESR > 140.0 mm/Hr (0-20) 09/08/16 11:48 Jun Bodies Not Reportable 10/10/16 05:00 Hem Pathologist Commnt No 10/10/16 05:00 PT 19.0 Sec. (12.2-14.9) H 10/09/16 03:45 INR 1.51 (0.87-1.13) H 10/09/16 03:45 APTT 33.0 Sec. (24.2-36.6) 10/09/16 03:45 Thrombin Time 16.8 Sec. (15.1-19.6) 09/03/16 00:10 Fibrinogen 750 mg/dl (211-480) H 09/08/16 11:48 Lupus Anticoagulant see below 09/12/16 09:59 LA PTT Baseline See scanned report 09/12/16 09:59 dRVVT Confirm Interp Positive (Negative) H 09/12/16 09:59 dRVVT Screen 50:50 See scanned report 09/12/16 09:59 dRVVT Mix Interpret See scanned report 09/12/16 09:59 Protein C Antigen 122 % (70-140) 09/08/16 15:35 Free Protein S 97 % normal (50-147) 09/08/16 15:35 Total Protein S 109 % (70-140) 09/08/16 15:35 Antithrombin III Ag 100 % (80-120) 09/08/16 15:35 Heparin Anti-Xa, Unfract Negative (Negative) 09/29/16 13:35 Factor V Activity 182 % (65-150) H 09/08/16 15:35 POC ABG pH 7.561 (7.35-7.45) H 10/16/16 20:48 POC ABG pCO2 24.4 (35-45) L 10/16/16 20:48 POC ABG pO2 77 (80-105) L 10/16/16 20:48 POC ABG HCO3 21.9 10/16/16 20:48 POC ABG Total CO2 23 10/16/16 20:48 POC ABG O2 Sat 97 10/16/16 20:48 POC ABG Base Excess 0 10/16/16 20:48 FiO2 25 % 10/16/16 20:48 Sodium 140 mmol/L (137-145) 10/21/16 04:00 Potassium 5.4 mmol/L (3.6-5.0) H D 10/21/16 04:00 Chloride 105.7 mmol/L (98-107) 10/21/16 04:00 Carbon Dioxide 15 mmol/L (22-30) L 10/21/16 04:00 Anion Gap 25 mmol/L 10/21/16 04:00 BUN 110 mg/dL (7-17) H 10/21/16 04:00 Creatinine 3.0 mg/dL (0.7-1.2) H 10/21/16 04:00 Estimated GFR 20 ml/min 10/21/16 04:00 BUN/Creatinine Ratio 36.66 % 10/21/16 04:00 Glucose 98 mg/dL (65-100) 10/21/16 04:00 POC Glucose 119 (70-105) H 10/21/16 05:54 Osmolality 351 Mosm/kg 09/16/16 11:47 Lactic Acid 4.50 mmol/L (0.7-2.0) H* 09/28/16 07:25 Calcium 9.3 mg/dL (8.4-10.2) 10/21/16 04:00 Phosphorus 3.50 mg/dL (2.5-4.5) 10/21/16 04:00 Magnesium 1.90 mg/dL (1.7-2.3) 10/21/16 04:00 Total Bilirubin 0.30 mg/dL (0.1-1.2) 10/17/16 04:24 Direct Bilirubin 0.3 mg/dL (0-0.2) H 10/10/16 05:00 Indirect Bilirubin 0.1 mg/dL 10/10/16 05:00 AST 39 units/L (5-40) 10/17/16 04:24 ALT 13 units/L (7-56) 10/17/16 04:24 Alkaline Phosphatase 138 units/L (35-129) H 10/17/16 04:24 Ammonia 27.0 umol/L (25-60) 09/07/16 08:37 Total Creatine Kinase 121 units/L (30-135) 09/29/16 20:12 CK-MB (CK-2) < 1.0 ng/mL (0.0-4.0) 09/29/16 20:12 CK-MB (CK-2) Rel Index 0.8 (0-4) 09/29/16 20:12 Troponin T 0.204 ng/mL (0.00-0.029) H* 09/29/16 20:12 C-Reactive Protein 15.80 mg/dL (0.00-1.30) H 10/11/16 04:15 Total Protein 6.2 g/dL (6.3-8.2) L 10/17/16 04:24 Albumin 1.5 g/dL (3.9-5) L 10/17/16 04:24 Albumin/Globulin Ratio 0.3 % 10/17/16 04:24 Triglycerides 137 mg/dL (2-149) 09/29/16 20:12 Cholesterol 31 mg/dL (50-199) L 09/29/16 20:12 LDL Cholesterol Direct 4 mg/dL (50-130) L 09/29/16 20:12 HDL Cholesterol 3 mg/dL (40-59) L 09/29/16 20:12 Cholesterol/HDL Ratio 10.33 % 09/29/16 20:12 Angiotensin Convert Enz See scanned report 09/08/16 11:48 Renin 0.99 ng/mL/h (0.25-5.82) 10/07/16 10:56 Aldosterone <1 ng/dL () 10/07/16 10:56 Aldosterone/Renin Dir see below 10/07/16 10:56 Serotonin Release Assay See scanned report 09/29/16 13:35 TSH 1.010 mlU/mL (0.270-4.200) 09/07/16 08:37 HCG, Qual Negative (Negative) 09/03/16 00:10 Urine Color Yokasta (Yellow) 10/07/16 18:30 Urine Turbidity Turbid (Clear) 10/07/16 18:30 Urine pH 7.0 (5.0-7.0) 10/07/16 18:30 Ur Specific Syl[place] 1.012 (1.003-1.030) 10/07/16 18:30 Urine Protein 100 mg/dl mg/dL (Negative) 10/07/16 18:30 Urine Glucose (UA) Neg mg/dL (Negative) 10/07/16 18:30 Urine Ketones Neg mg/dL (Negative) 10/07/16 18:30 Urine Blood Lg (Negative) 10/07/16 18:30 Urine Nitrite Neg (Negative) 10/07/16 18:30 Urine Bilirubin Neg (Negative) 10/07/16 18:30 Urine Urobilinogen < 2.0 mg/dL (<2.0) 10/07/16 18:30 Ur Leukocyte Esterase Lg (Negative) 10/07/16 18:30 Urine WBC (Auto) > 182.0 /HPF (0.0-6.0) H 10/07/16 18:30 Urine RBC (Auto) > 182.0 /HPF (0.0-6.0) 10/07/16 18:30 U Epithel Cells (Auto) 1.0 /HPF (0-13.0) 10/07/16 18:30 Urine Bacteria (Auto) 3+ /HPF (Negative) 10/07/16 18:30 Urine WBC Clumps 2+ /HPF 09/07/16 02:47 Hyaline Casts 4 /LPF 09/07/16 02:47 Urine Mucus Few /HPF 10/07/16 18:30 Urine Yeast (Budding) 3+ /HPF 10/07/16 18:30 Urine Eosinophils None seen (None Seen) 09/07/16 16:00 Urine Total Volume 1350 09/21/16 12:00 Urine Creatinine 54.8 mg/dL (0.1-20.0) H 09/21/16 12:00 Height (in) 67.0 inches 09/21/16 12:00 Weight (lb) 92.0 lbs 09/21/16 12:00 Creatinine Clearance 15 09/21/16 12:00 Urine Sodium 36 mEq/L 09/16/16 19:19 Urine Total Protein 16 mg/dL (5-11.8) H 09/16/16 19:19 Vancomycin Trough 2.3 ug/mL (5.0-20.0) L 09/21/16 13:00 Random Vancomycin 17.0 ug/mL (0-40.0) 10/20/16 06:00 Urine Opiates Screen Presumptive negative 09/03/16 15:11 Urine Methadone Screen Presumptive positive 09/03/16 15:11 Ur Barbiturates Screen Presumptive positive 09/03/16 15:11 Ur Phencyclidine Scrn Presumptive negative 09/03/16 15:11 Ur Amphetamines Screen Presumptive negative 09/03/16 15:11 U Benzodiazepines Scrn Presumptive negative 09/03/16 15:11 Urine Cocaine Screen Presumptive negative 09/03/16 15:11 U Marijuana (THC) Screen Presumptive positive 09/03/16 15:11 Drugs of Abuse Note Disclamer 09/03/16 15:11 Rheumatoid Factor 24 IU/ml (0-13) H 09/08/16 11:48 SAHIL Screen Negative (Negative) 09/07/16 09:20 Proteinase 3 (PR3) Ab <1.0 AI (<1.0) 09/07/16 09:20 Myeloperoxidase Ab <1.0 AI (<1.0) 09/07/16 09:20 Sjogren's Antibody <1.0 AI (<1.0) 09/08/16 15:35 Scl-70 Scleroderma Ab <1.0 AI (<1.0) 09/08/16 15:35 Centromere B Antibody <1.0 AI (<1.0) 09/08/16 12:02 Heparin-induced Plt Ab Negative (Negative) 09/29/16 13:35 UF Heparin High Dose 11 % Release 09/29/16 13:35 SUDHIR UFH Low Dose 0.1 6 % Release 09/29/16 13:35 SUDHIR UFH Low Dose 0.5 8 % Release 09/29/16 13:35 Cardiolipid IgG Ab <14 GPL (<=14) 09/12/16 09:59 Cardiolipid IgA Ab <11 APL (<=11) 09/12/16 09:59 Cardiolipid IgM Ab <12 MPL (<=12) 09/12/16 09:59 Complement C3 148 mg/dL (90-180) 09/07/16 09:20 Complement C4 58 mg/dL (16-47) H 09/07/16 09:20 RPR Nonreactive (Nonreactive) 09/08/16 11:48 Hepatitis A IgM Ab Non-reactive (NonReactive) 09/24/16 14:40 Hep Bs Antigen Non-reactive (Negative) 09/24/16 14:40 Hep B Core IgM Ab Non-reactive (NonReactive) 09/24/16 14:40 Hepatitis C Antibody Non-reactive (NonReactive) 09/24/16 14:40 HIV 1&2 Antibody Rapid Non react (Non React) 09/08/16 11:48 HIV P24 Antigen Non react (Non React) 09/08/16 11:48 Miscellaneous Test Flexitest 1 H 10/13/16 09:20 Blood Type A POSITIVE 10/09/16 07:20 Antibody Screen Negative 10/09/16 07:20 DELORIS Antibody Screen Negative 09/25/16 10:30 Crossmatch See Detail 10/09/16 07:20
[2016-10-21] MEDS ORDERED: D10W 1,000 ML IV SCH (08:00)
[2016-10-21] MEDS ORDERED: KIONEX PO ONE (08:00)
--- NOTE | 2016-10-21 09:07 | Progress Note ---
Assessment and Plan Assessment: 1) Recurrent Sepsis: still fever ? unclear source - likely abdominal wall abscess at surgical site -S/p multiple episodes of sepsis - initially due to presumed aspiration pneumonia, then septic episode on 09/23 from Candidemia. Then from - peritonitis from gastric perforation +/- UTI. Current septic episode from surgical site infection. -CRP 19 --> 22 -Procalcitonin=24 --> 16 (improving) -repeat CT abdomen no leak no abscess -repeat blood cx - neg -Wound cx from surgical site infection + MDR Pseudomonas and Silvia albicans 2) Peritonitis: from gastric perforation from dislodged PEG with significant ascites -S/P exlap, repair of gastric perforation with wedge gastrectomy, abdominal washout, drain placement on 10/05. 3) Candidemia: -Blood cultures positive for Silvia albicans on 09/23 -Blood cultures positive on 09/25 -Blood cutlures negative on 09/30 -PICC line changed on 10/03 -Source ? gastric perf (PEG placed on 09/20) +/- TPN +/- central lines -TTE 10/07 no vegetations -PICC exchanged on 10/03 -fully treated with micafungin for 14 days last day 10/13 4) CA-UTI s/p gutierrez exchanged 5) Diarrhea - ? etiology ? antibiotic-induced, not better 6) Initial presumed aspiration pneumonia 7) Presumed UTI: urine cx 09/23 multiple species 8) Respiratory failure s/p trach 9) Recent CVA-left MCA CVA 10) Uncontrolled HTN 11) Acute on CKD 12) Extensive back skin peeling ? burn from gastric secretions. Doubt allergic reaction 13) Severe anemia; ? from GI bleed Plan: -f/u recheck procalcitonin -stop IV vancomycin -stop meropenem day 16 since Pseudomonas resistant to meropenem -re-start zosyn in view of MDR Pseudomonas only sens to zosyn -continue fluconazole day 3 -contact isolation in view of MDR Pseudomonas -if fever continues will check CT abd pelvis -discussed with ICU staff I will be off on MondayOct 22 and MondayOct 23, however available for questions over the phone [phone]. [address] Means for your consultation, will follow up with you. Pauline Carias MD Infectious Diseases Specialist [facility] ([facility] M [phone] O [phone] Subjective Date of service: 10/21/16 Principal diagnosis: Acute resp failure on MVS; S/P Acute CVA; Acute Encephalopathy; JUANITA Interval history: Somnolent open eyes spontaneously, not following commands, on the vent via trach. fever trending down Microbiology: Blood cultures: 09/13 neg 8/ Silvia albicans 09/25 Silvia 09/29 neg 10/07 NGTD Urine cultures: 09/10 neg 09/13 neg 8 10-100K mixed species 10/07 pending Respiratory cultures: 09/07 neg 09/13 neg 09/23 neg Wound cultures: 10/17 abd wall wound purulence + Pseudomonas MDR Stool cultures: Current Antimicrobials: Meropenem 10/10 Vanco 10/17 fluconazole 10/19 Previous Antimicrobials: Zosyn 10/07 Vancomycin PO 10/01 Metronidazole 09/25 Micafungin 09/27-10/13 Objective - Exam Narrative Exam: General appearance: alert, non verbal, on the vent via trach no following commands Eyes: anicteric sclera, moist conjunctivae; PERRLA HENT: Atraumatic; oropharynx limited; Normal external ears. +NGT with greenish secretion Neck: +trach in place; supple, no thyromegaly or lymphadenopathy Lungs: coarse BS bilateral CV: tachycardic Abdomen: Soft, non-tender, +drain with purulent drainage, + diarrhea via rectal tube leaking. +old PEG site no drainage. Right sided Surgical site packed still draining serous fluid Extremities: +peripheral edema no extremity lymphadenopathy Skin: Julian sub mammary ulcers, extensive skin peeling on back Psych: somnolent . Neuro: somnolent non verbal on the vent. Lines: left arm PICC placed on 10/03 - Constitutional Vitals: Vital Signs Temp Pulse Resp BP Pulse Ox 99.8 F H 102 H 27 H 118/66 98 10/21/16 08:00 10/21/16 07:15 10/21/16 06:00 10/21/16 07:15 10/21/16 07:18 Temperature -Last 24 Hours Temperature 99.8 F Temperature 100.3 F Temperature 100.0 F Temperature 99.9 F Temperature 99.4 F Temperature 98.2 F - Labs CBC & Chem 7: 10/20/16 06:00 10/21/16 04:00 Labs: Abnormal lab results 10/20/16 10/20/16 10/20/16 Range/Units 11:49 18:36 23:39 Potassium (3.6-5.0) mmol/L Carbon Dioxide (22-30) mmol/L BUN (7-17) mg/dL Creatinine (0.7-1.2) mg/dL POC Glucose 117 H 127 H 114 H (70-105) 10/21/16 10/21/16 Range/Units 04:00 05:54 Potassium 5.4 H D (3.6-5.0) mmol/L Carbon Dioxide 15 L (22-30) mmol/L BUN 110 H (7-17) mg/dL Creatinine 3.0 H (0.7-1.2) mg/dL POC Glucose 119 H (70-105)
[2016-10-21] MEDS: ZOSYN/NS 2.25 GM/50ML 2.25 GM/50 ML BAG IV SCH ×3 (11:58→22:00)
[2016-10-21] MEDS: PROTONIX IV SCH (11:59)
--- NOTE | 2016-10-21 12:48 | Progress Note ---
Assessment and Plan (1) Acute respiratory failure with hypoxia Current Visit: Yes Status: Acute Plan to address problem: - continue aspiration precautions / address VAP bundles - continue to wean oxygen for MAP > 94% - continue bronchodilators and pulmonary toilet - s/p tracheostomy - continue daily PSV trials as tolerated (2) Acute CVA (cerebrovascular accident) Current Visit: Yes Status: Acute Plan to address problem: - out of tpA window (initially stopped due to uncontrolled HTN) - Left MCA teritory stroke with some midline shift on last CT - seen by neurology and prognosis for recovery of mental status guarded to poor - optimizing secondary prevention modalities now (BP, lipid anti-platelet therapy) - off systemic steroids now (started earlier for edema) - clinically about the same (3) Hypertensive emergency Current Visit: Yes Status: Acute Plan to address problem: - stopped all antihypertensives while septic prior - following clinically - on scheduled IV metoprolol with prn IV hydralazine (4) Obesity (BMI 35.0-39.9 without comorbidity) Current Visit: Yes Status: Chronic Plan to address problem: - nutrition consult placed for enteral formulation - on TPN now - following clinically (5) Type 2 diabetes mellitus Current Visit: Yes Status: Chronic Qualifiers: Diabetes mellitus complication status: D Diabetes mellitus complication detail: D Diabetic retinopathy severity: D Proliferative retinopathy type: P Diabetes mellitus macular edema: D Diabetes mellitus termination clerk insulin use : D Laterality: L Chronic kidney disease stage: C Plan to address problem: - continue SSI - discontinued lantus re: hypoglycemia - target BG's <180 mg/dl (6) Leukocytosis (leucocytosis) Current Visit: Yes Status: Acute Qualifiers: Leukocytosis type: leukemoid reaction Qualified Code(s): D72.823 - Leukemoid reaction Plan to address problem: - completed cancidas and de-escalate per ID recs - leucocytosis persistent but now trending down - on zosyn and diflucan now - wound cultures growing pseudomonas and dann (7) Agitation Current Visit: Yes Status: Acute Plan to address problem: - prn sedation / analgesia - tapered off seroquel for now (8) Atrial fibrillation Current Visit: Yes Status: Acute Qualifiers: Atrial fibrillation type: A Plan to address problem: - failed cardioversion earlier - cardiology evaluation ongoing - back in A-fib - continue amiodarone drip (change to p.o. once tolerating enterally) - on IV metoprolol scheduled re: HTN & tachycardia (9) JUANITA (acute kidney injury) Current Visit: Yes Status: Acute Plan to address problem: - on Dialysis now - continue HD/UF per nephrology recommendations (10) Pyrexia of unknown origin Current Visit: Yes Status: Acute Plan to address problem: - dopplers negative for DVT - continue to treat with Anti-infectives (11) Severe sepsis Current Visit: Yes Status: Acute Plan to address problem: - resume vasopressors for MAP < 60mmHg not responsive to volume - all central vascular access has been discontinued after fungemia reported - care plan formulated with ID input - BC's from 09/27/16 growing in 1of 2 but still no ID yet - coomplete micafungin per ID recs and stop date - wound care nurse also managing back wounds - clinically stable and hemodynamically improved - bo to RLQ incision removed and wound drained and packed - on contact precautions per ID (12) Emesis Current Visit: Yes Status: Acute Qualifiers: Vomiting type: V Vomiting Intractability: V Nausea presence: N Plan to address problem: - s/p surgical repair of gastric perforation - continue TPN for now - follow surgery recommendations (13) Discharge planning issues Current Visit: Yes Status: Acute Plan to address problem: - she remains critically ill on life sustaining interventions including MVS and at risk for further acute deterioration including .....30' CCT ....termination clerk prognosis is guarded Subjective Date of service: 10/21/16 Principal diagnosis: Acute resp failure on MVS; S/P Acute CVA; Acute Encephalopathy; JUANITA Interval history: Seen and examined at bedside; 24 hour events reviewed; nursing and respiratory care staff consulted; no adverse overnight events reported to me; remains on MVS ; tolerated only a couple hours on PSV; minimal drainage from RLQ wound site; no new issues otherwise Objective Vital Signs - 12hr 10/21/16 10/21/16 10/21/16 01:00 01:30 02:00 Temperature Pulse Rate 111 H 106 H 104 H Respiratory 27 H 26 H 20 Rate Blood Pressure 146/93 127/78 115/62 O2 Sat by Pulse 100 100 97 Oximetry O2 Sat by Pulse Oximetry [ Assessment] 10/21/16 10/21/16 10/21/16 02:30 03:00 03:30 Temperature Pulse Rate 117 H 112 H 113 H Respiratory 23 27 H 30 H Rate Blood Pressure 137/91 119/80 127/78 O2 Sat by Pulse 100 100 96 Oximetry O2 Sat by Pulse Oximetry [ Assessment] 10/21/16 10/21/16 10/21/16 03:39 04:00 04:30 Temperature 100.3 F H Pulse Rate 107 H 121 H 124 H Respiratory 36 H 34 H Rate Blood Pressure 126/75 121/85 141/84 O2 Sat by Pulse 100 97 100 Oximetry O2 Sat by Pulse Oximetry [ Assessment] 10/21/16 10/21/16 10/21/16 05:01 05:31 06:00 Temperature Pulse Rate 117 H 111 H 111 H Respiratory 19 34 H 27 H Rate Blood Pressure 134/75 134/75 144/84 O2 Sat by Pulse 97 Oximetry O2 Sat by Pulse Oximetry [ Assessment] 10/21/16 10/21/16 10/21/16 06:30 07:00 07:15 Temperature Pulse Rate 109 H 98 H 102 H Respiratory 28 H 24 Rate Blood Pressure 126/74 119/68 118/66 O2 Sat by Pulse 97 100 99 Oximetry O2 Sat by Pulse Oximetry [ Assessment] 10/21/16 10/21/16 10/21/16 07:18 07:30 08:00 Temperature 99.8 F H Pulse Rate 100 H 103 H Respiratory 24 25 H Rate Blood Pressure 123/74 121/77 O2 Sat by Pulse 100 100 Oximetry O2 Sat by Pulse 98 Oximetry [ Assessment] 10/21/16 10/21/16 10/21/16 08:30 09:00 09:31 Temperature Pulse Rate 103 H 106 H 118 H Respiratory 25 H 24 28 H Rate Blood Pressure 118/68 125/75 157/89 O2 Sat by Pulse 100 100 Oximetry O2 Sat by Pulse Oximetry [ Assessment] 10/21/16 10/21/16 10/21/16 10:00 10:30 10:35 Temperature Pulse Rate 105 H 116 H 95 H Respiratory 24 32 H Rate Blood Pressure 108/66 119/64 O2 Sat by Pulse 98 93 98 Oximetry O2 Sat by Pulse Oximetry [ Assessment] 10/21/16 10/21/16 10/21/16 11:00 11:30 12:00 Temperature 100.1 F H Pulse Rate 116 H 108 H Respiratory 33 H 26 H Rate Blood Pressure 111/63 92/44 O2 Sat by Pulse 86 87 Oximetry O2 Sat by Pulse Oximetry [ Assessment] 10/21/16 12:14 Temperature Pulse Rate 115 H Respiratory Rate Blood Pressure 99/55 O2 Sat by Pulse Oximetry O2 Sat by Pulse Oximetry [ Assessment] Constitutional: no acute distress, other (eyes open; not tracking movements) Eyes: non-icteric, other (tracheostomy tube in midline of neck) ENT: oropharynx moist Neck: supple, no lymphadenopathy Effort: mildly labored Ascultation: Bilateral: diminished breath sounds, rales Cardiovascular: regular rate and rhythm Gastrointestinal: hypoactive bowel sounds, soft, non-tender, non-distended, other (hema drain in place) Integumentary: other (erythema to skin of back with some healing areas; no obvious TEN's features) Extremities: no cyanosis, no edema, pulses normal, no ischemia or petechiae Neurologic: pupils equal and round, other (sedated) Psychiatric: other (unable to assess) CBC and BMP: 10/22/16 06:40 10/22/16 06:40 ABG, PT/INR, D-dimer: ABG POC ABG pH 7.561 (7.35-7.45) H 10/16/16 20:48 POC ABG pCO2 24.4 (35-45) L 10/16/16 20:48 POC ABG pO2 77 (80-105) L 10/16/16 20:48 POC ABG HCO3 21.9 10/16/16 20:48 POC ABG Total CO2 23 10/16/16 20:48 POC ABG O2 Sat 97 10/16/16 20:48 PT/INR, D-dimer PT 19.0 Sec. (12.2-14.9) H 10/09/16 03:45 INR 1.51 (0.87-1.13) H 10/09/16 03:45 Abnormal lab findings: Abnormal Labs 09/03/16 09/03/16 09/03/16 12:12 15:07 16:20 WBC RBC Hgb Hct MCV MCH MCHC RDW Plt Count Lymph % (Auto) Dare % (Auto) Lymph # Dare # Seg Neutrophils % Seg Neuts % (Manual) Lymphocytes % (Manual) Monocytes % (Manual) Eosinophils % (Manual) Basophils % (Manual) Nucleated RBC % Seg Neutrophils # Seg Neutrophils # Man Lymphocytes # (Manual) Monocytes # (Manual) Eosinophils # (Manual) PT INR Fibrinogen dRVVT Confirm Interp Factor V Activity POC ABG pH 7.452 H POC ABG pCO2 POC ABG pO2 Sodium Potassium Chloride Carbon Dioxide BUN Creatinine Glucose POC Glucose 178 H Lactic Acid Calcium Phosphorus 2.20 L Magnesium 1.60 L Direct Bilirubin ALT Alkaline Phosphatase Troponin T C-Reactive Protein Total Protein Albumin Triglycerides Cholesterol LDL Cholesterol Direct HDL Cholesterol Urine WBC (Auto) Urine Creatinine Urine Total Protein Vancomycin Trough Rheumatoid Factor Complement C4 Miscellaneous Test Crossmatch 09/03/16 09/03/16 09/03/16 17:57 17:58 23:50 WBC RBC Hgb Hct MCV MCH MCHC RDW Plt Count Lymph % (Auto) Dare % (Auto) Lymph # Dare # Seg Neutrophils % Seg Neuts % (Manual) Lymphocytes % (Manual) Monocytes % (Manual) Eosinophils % (Manual) Basophils % (Manual) Nucleated RBC % Seg Neutrophils # Seg Neutrophils # Man Lymphocytes # (Manual) Monocytes # (Manual) Eosinophils # (Manual) PT INR Fibrinogen dRVVT Confirm Interp Factor V Activity POC ABG pH POC ABG pCO2 POC ABG pO2 Sodium Potassium Chloride Carbon Dioxide BUN Creatinine Glucose POC Glucose 162 H 145 H Lactic Acid Calcium Phosphorus 2.30 L Magnesium Direct Bilirubin ALT Alkaline Phosphatase Troponin T C-Reactive Protein Total Protein Albumin Triglycerides Cholesterol LDL Cholesterol Direct HDL Cholesterol Urine WBC (Auto) Urine Creatinine Urine Total Protein Vancomycin Trough Rheumatoid Factor Complement C4 Miscellaneous Test Crossmatch 09/04/16 09/04/16 09/04/16 03:31 03:31 05:42 WBC RBC Hgb 9.7 L D Hct MCV 72 L MCH 23 L MCHC RDW 17.5 H Plt Count Lymph % (Auto) 11.1 L Dare % (Auto) Lymph # Dare # Seg Neutrophils % 84.3 H Seg Neuts % (Manual) Lymphocytes % (Manual) Monocytes % (Manual) Eosinophils % (Manual) Basophils % (Manual) Nucleated RBC % Seg Neutrophils # 8.9 H Seg Neutrophils # Man Lymphocytes # (Manual) Monocytes # (Manual) Eosinophils # (Manual) PT INR Fibrinogen dRVVT Confirm Interp Factor V Activity POC ABG pH POC ABG pCO2 POC ABG pO2 Sodium 135 L Potassium 2.9 L* Chloride 97.2 L Carbon Dioxide 19 L BUN Creatinine 1.7 H Glucose 170 H POC Glucose 152 H Lactic Acid Calcium Phosphorus Magnesium Direct Bilirubin ALT Alkaline Phosphatase Troponin T C-Reactive Protein Total Protein Albumin Triglycerides 160 H Cholesterol LDL Cholesterol Direct HDL Cholesterol 31 L Urine WBC (Auto) Urine Creatinine Urine Total Protein Vancomycin Trough Rheumatoid Factor Complement C4 Miscellaneous Test Crossmatch 09/04/16 09/04/16 09/04/16 11:34 17:46 23:29 WBC RBC Hgb Hct MCV MCH MCHC RDW Plt Count Lymph % (Auto) Dare % (Auto) Lymph # Dare # Seg Neutrophils % Seg Neuts % (Manual) Lymphocytes % (Manual) Monocytes % (Manual) Eosinophils % (Manual) Basophils % (Manual) Nucleated RBC % Seg Neutrophils # Seg Neutrophils # Man Lymphocytes # (Manual) Monocytes # (Manual) Eosinophils # (Manual) PT INR Fibrinogen dRVVT Confirm Interp Factor V Activity POC ABG pH POC ABG pCO2 POC ABG pO2 Sodium Potassium Chloride Carbon Dioxide BUN Creatinine Glucose POC Glucose 165 H 210 H 139 H Lactic Acid Calcium Phosphorus Magnesium Direct Bilirubin ALT Alkaline Phosphatase Troponin T C-Reactive Protein Total Protein Albumin Triglycerides Cholesterol LDL Cholesterol Direct HDL Cholesterol Urine WBC (Auto) Urine Creatinine Urine Total Protein Vancomycin Trough Rheumatoid Factor Complement C4 Miscellaneous Test Crossmatch 09/05/16 09/05/16 09/05/16 04:05 04:05 05:38 WBC RBC Hgb Hct MCV 76 L D MCH 23 L MCHC RDW 17.8 H Plt Count Lymph % (Auto) Dare % (Auto) Lymph # Dare # Seg Neutrophils % Seg Neuts % (Manual) Lymphocytes % (Manual) Monocytes % (Manual) Eosinophils % (Manual) Basophils % (Manual) Nucleated RBC % Seg Neutrophils # Seg Neutrophils # Man Lymphocytes # (Manual) Monocytes # (Manual) Eosinophils # (Manual) PT INR Fibrinogen dRVVT Confirm Interp Factor V Activity POC ABG pH POC ABG pCO2 POC ABG pO2 Sodium 134 L Potassium Chloride Carbon Dioxide 18 L BUN Creatinine 1.8 H Glucose 192 H POC Glucose 175 H Lactic Acid Calcium Phosphorus Magnesium Direct Bilirubin ALT Alkaline Phosphatase Troponin T C-Reactive Protein Total Protein Albumin Triglycerides Cholesterol LDL Cholesterol Direct HDL Cholesterol Urine WBC (Auto) Urine Creatinine Urine Total Protein Vancomycin Trough Rheumatoid Factor Complement C4 Miscellaneous Test Crossmatch 09/05/16 09/05/16 09/05/16 11:38 17:48 23:22 WBC RBC Hgb Hct MCV MCH MCHC RDW Plt Count Lymph % (Auto) Dare % (Auto) Lymph # Dare # Seg Neutrophils % Seg Neuts % (Manual) Lymphocytes % (Manual) Monocytes % (Manual) Eosinophils % (Manual) Basophils % (Manual) Nucleated RBC % Seg Neutrophils # Seg Neutrophils # Man Lymphocytes # (Manual) Monocytes # (Manual) Eosinophils # (Manual) PT INR Fibrinogen dRVVT Confirm Interp Factor V Activity POC ABG pH POC ABG pCO2 POC ABG pO2 Sodium Potassium Chloride Carbon Dioxide BUN Creatinine Glucose POC Glucose 164 H 186 H 195 H Lactic Acid Calcium Phosphorus Magnesium Direct Bilirubin ALT Alkaline Phosphatase Troponin T C-Reactive Protein Total Protein Albumin Triglycerides Cholesterol LDL Cholesterol Direct HDL Cholesterol Urine WBC (Auto) Urine Creatinine Urine Total Protein Vancomycin Trough Rheumatoid Factor Complement C4 Miscellaneous Test Crossmatch 09/06/16 09/06/16 09/06/16 04:12 05:59 07:32 WBC RBC Hgb Hct MCV MCH MCHC RDW Plt Count Lymph % (Auto) Dare % (Auto) Lymph # Dare # Seg Neutrophils % Seg Neuts % (Manual) Lymphocytes % (Manual) Monocytes % (Manual) Eosinophils % (Manual) Basophils % (Manual) Nucleated RBC % Seg Neutrophils # Seg Neutrophils # Man Lymphocytes # (Manual) Monocytes # (Manual) Eosinophils # (Manual) PT INR Fibrinogen dRVVT Confirm Interp Factor V Activity POC ABG pH 7.514 H POC ABG pCO2 29.1 L POC ABG pO2 72 L Sodium 133 L Potassium 3.4 L Chloride 94.9 L Carbon Dioxide 19 L BUN 30 H Creatinine 2.1 H Glucose 139 H POC Glucose 146 H Lactic Acid Calcium Phosphorus Magnesium Direct Bilirubin ALT Alkaline Phosphatase Troponin T C-Reactive Protein Total Protein Albumin Triglycerides Cholesterol LDL Cholesterol Direct HDL Cholesterol Urine WBC (Auto) Urine Creatinine Urine Total Protein Vancomycin Trough Rheumatoid Factor Complement C4 Miscellaneous Test Crossmatch 09/06/16 09/06/16 09/06/16 11:57 17:58 19:02 WBC RBC Hgb Hct MCV MCH MCHC RDW Plt Count Lymph % (Auto) Dare % (Auto) Lymph # Dare # Seg Neutrophils % Seg Neuts % (Manual) Lymphocytes % (Manual) Monocytes % (Manual) Eosinophils % (Manual) Basophils % (Manual) Nucleated RBC % Seg Neutrophils # Seg Neutrophils # Man Lymphocytes # (Manual) Monocytes # (Manual) Eosinophils # (Manual) PT INR Fibrinogen dRVVT Confirm Interp Factor V Activity POC ABG pH 7.465 H POC ABG pCO2 32.0 L POC ABG pO2 Sodium Potassium Chloride Carbon Dioxide BUN Creatinine Glucose POC Glucose 165 H 160 H Lactic Acid Calcium Phosphorus Magnesium Direct Bilirubin ALT Alkaline Phosphatase Troponin T C-Reactive Protein Total Protein Albumin Triglycerides Cholesterol LDL Cholesterol Direct HDL Cholesterol Urine WBC (Auto) Urine Creatinine Urine Total Protein Vancomycin Trough Rheumatoid Factor Complement C4 Miscellaneous Test Crossmatch 09/06/16 09/07/16 09/07/16 23:45 02:47 02:47 WBC RBC Hgb Hct MCV MCH MCHC RDW Plt Count Lymph % (Auto) Dare % (Auto) Lymph # Dare # Seg Neutrophils % Seg Neuts % (Manual) Lymphocytes % (Manual) Monocytes % (Manual) Eosinophils % (Manual) Basophils % (Manual) Nucleated RBC % Seg Neutrophils # Seg Neutrophils # Man Lymphocytes # (Manual) Monocytes # (Manual) Eosinophils # (Manual) PT INR Fibrinogen dRVVT Confirm Interp Factor V Activity POC ABG pH POC ABG pCO2 POC ABG pO2 Sodium Potassium Chloride Carbon Dioxide BUN Creatinine Glucose POC Glucose 204 H Lactic Acid Calcium Phosphorus Magnesium Direct Bilirubin ALT Alkaline Phosphatase Troponin T C-Reactive Protein Total Protein Albumin Triglycerides Cholesterol LDL Cholesterol Direct HDL Cholesterol Urine WBC (Auto) 68.0 H Urine Creatinine 106.1 H Urine Total Protein Vancomycin Trough Rheumatoid Factor Complement C4 Miscellaneous Test Crossmatch 09/07/16 09/07/16 09/07/16 04:50 06:19 06:39 WBC RBC Hgb Hct MCV MCH MCHC RDW Plt Count Lymph % (Auto) Dare % (Auto) Lymph # Dare # Seg Neutrophils % Seg Neuts % (Manual) Lymphocytes % (Manual) Monocytes % (Manual) Eosinophils % (Manual) Basophils % (Manual) Nucleated RBC % Seg Neutrophils # Seg Neutrophils # Man Lymphocytes # (Manual) Monocytes # (Manual) Eosinophils # (Manual) PT INR Fibrinogen dRVVT Confirm Interp Factor V Activity POC ABG pH 7.457 H POC ABG pCO2 32.1 L POC ABG pO2 76 L Sodium 132 L Potassium Chloride 94.7 L Carbon Dioxide BUN 53 H Creatinine 2.9 H Glucose 151 H POC Glucose 149 H Lactic Acid Calcium Phosphorus Magnesium Direct Bilirubin ALT Alkaline Phosphatase Troponin T C-Reactive Protein Total Protein Albumin Triglycerides Cholesterol LDL Cholesterol Direct HDL Cholesterol Urine WBC (Auto) Urine Creatinine Urine Total Protein Vancomycin Trough Rheumatoid Factor Complement C4 Miscellaneous Test Crossmatch 09/07/16 09/07/16 09/07/16 09:20 11:43 11:43 WBC 19.4 H RBC Hgb 8.3 L Hct 26.4 L D MCV 72 L D MCH 22 L MCHC RDW 17.9 H Plt Count Lymph % (Auto) 8.5 L Dare % (Auto) Lymph # Dare # 1.0 H Seg Neutrophils % 85.8 H Seg Neuts % (Manual) Lymphocytes % (Manual) Monocytes % (Manual) Eosinophils % (Manual) Basophils % (Manual) Nucleated RBC % Seg Neutrophils # 16.6 H Seg Neutrophils # Man Lymphocytes # (Manual) Monocytes # (Manual) Eosinophils # (Manual) PT INR Fibrinogen dRVVT Confirm Interp Factor V Activity POC ABG pH POC ABG pCO2 POC ABG pO2 Sodium 134 L Potassium Chloride 97.2 L Carbon Dioxide 20 L BUN 58 H Creatinine 2.9 H Glucose 147 H POC Glucose Lactic Acid Calcium Phosphorus 2.40 L Magnesium 2.40 H Direct Bilirubin ALT Alkaline Phosphatase Troponin T C-Reactive Protein Total Protein 5.8 L Albumin 2.2 L Triglycerides Cholesterol LDL Cholesterol Direct HDL Cholesterol Urine WBC (Auto) Urine Creatinine Urine Total Protein Vancomycin Trough Rheumatoid Factor Complement C4 58 H Miscellaneous Test Crossmatch 09/07/16 09/07/16 09/07/16 11:50 16:00 17:31 WBC RBC Hgb Hct MCV MCH MCHC RDW Plt Count Lymph % (Auto) Dare % (Auto) Lymph # Dare # Seg Neutrophils % Seg Neuts % (Manual) Lymphocytes % (Manual) Monocytes % (Manual) Eosinophils % (Manual) Basophils % (Manual) Nucleated RBC % Seg Neutrophils # Seg Neutrophils # Man Lymphocytes # (Manual) Monocytes # (Manual) Eosinophils # (Manual) PT INR Fibrinogen dRVVT Confirm Interp Factor V Activity POC ABG pH POC ABG pCO2 POC ABG pO2 158 H Sodium Potassium Chloride Carbon Dioxide BUN Creatinine Glucose POC Glucose 175 H Lactic Acid Calcium Phosphorus Magnesium Direct Bilirubin ALT Alkaline Phosphatase Troponin T C-Reactive Protein Total Protein Albumin Triglycerides Cholesterol LDL Cholesterol Direct HDL Cholesterol Urine WBC (Auto) Urine Creatinine 66.3 H Urine Total Protein Vancomycin Trough Rheumatoid Factor Complement C4 Miscellaneous Test Crossmatch 09/07/16 09/08/16 09/08/16 23:50 05:46 06:18 WBC 17.8 H RBC 3.58 L Hgb 8.1 L Hct 25.5 L MCV 71 L MCH 23 L MCHC RDW 18.4 H Plt Count Lymph % (Auto) Dare % (Auto) Lymph # Dare # Seg Neutrophils % Seg Neuts % (Manual) 92.0 H Lymphocytes % (Manual) 6.0 L Monocytes % (Manual) Eosinophils % (Manual) Basophils % (Manual) Nucleated RBC % Seg Neutrophils # Seg Neutrophils # Man 16.4 H Lymphocytes # (Manual) 1.1 L Monocytes # (Manual) Eosinophils # (Manual) PT INR Fibrinogen dRVVT Confirm Interp Factor V Activity POC ABG pH POC ABG pCO2 34.3 L POC ABG pO2 71 L Sodium Potassium Chloride Carbon Dioxide BUN Creatinine Glucose POC Glucose 216 H Lactic Acid Calcium Phosphorus Magnesium Direct Bilirubin ALT Alkaline Phosphatase Troponin T C-Reactive Protein Total Protein Albumin Triglycerides Cholesterol LDL Cholesterol Direct HDL Cholesterol Urine WBC (Auto) Urine Creatinine Urine Total Protein Vancomycin Trough Rheumatoid Factor Complement C4 Miscellaneous Test Crossmatch 09/08/16 09/08/16 09/08/16 06:18 06:51 10:55 WBC RBC Hgb Hct MCV MCH MCHC RDW Plt Count Lymph % (Auto) Dare % (Auto) Lymph # Dare # Seg Neutrophils % Seg Neuts % (Manual) Lymphocytes % (Manual) Monocytes % (Manual) Eosinophils % (Manual) Basophils % (Manual) Nucleated RBC % Seg Neutrophils # Seg Neutrophils # Man Lymphocytes # (Manual) Monocytes # (Manual) Eosinophils # (Manual) PT INR Fibrinogen dRVVT Confirm Interp Factor V Activity POC ABG pH POC ABG pCO2 POC ABG pO2 Sodium 133 L Potassium Chloride 96.9 L Carbon Dioxide 20 L BUN 63 H Creatinine 2.7 H Glucose 195 H POC Glucose 204 H 169 H Lactic Acid Calcium Phosphorus Magnesium Direct Bilirubin ALT Alkaline Phosphatase Troponin T C-Reactive Protein Total Protein Albumin Triglycerides Cholesterol LDL Cholesterol Direct HDL Cholesterol Urine WBC (Auto) Urine Creatinine Urine Total Protein Vancomycin Trough Rheumatoid Factor Complement C4 Miscellaneous Test Crossmatch 09/08/16 09/08/16 09/08/16 11:48 11:48 11:48 WBC RBC Hgb Hct MCV MCH MCHC RDW Plt Count Lymph % (Auto) Dare % (Auto) Lymph # Dare # Seg Neutrophils % Seg Neuts % (Manual) Lymphocytes % (Manual) Monocytes % (Manual) Eosinophils % (Manual) Basophils % (Manual) Nucleated RBC % Seg Neutrophils # Seg Neutrophils # Man Lymphocytes # (Manual) Monocytes # (Manual) Eosinophils # (Manual) PT INR Fibrinogen 750 H dRVVT Confirm Interp Factor V Activity POC ABG pH POC ABG pCO2 POC ABG pO2 Sodium Potassium Chloride Carbon Dioxide BUN Creatinine Glucose POC Glucose Lactic Acid Calcium Phosphorus Magnesium Direct Bilirubin ALT Alkaline Phosphatase Troponin T C-Reactive Protein 15.70 H Total Protein Albumin Triglycerides Cholesterol LDL Cholesterol Direct HDL Cholesterol Urine WBC (Auto) Urine Creatinine Urine Total Protein Vancomycin Trough Rheumatoid Factor 24 H Complement C4 Miscellaneous Test Crossmatch 09/08/16 09/08/16 09/09/16 15:35 18:25 00:24 WBC RBC Hgb Hct MCV MCH MCHC RDW Plt Count Lymph % (Auto) Dare % (Auto) Lymph # Dare # Seg Neutrophils % Seg Neuts % (Manual) Lymphocytes % (Manual) Monocytes % (Manual) Eosinophils % (Manual) Basophils % (Manual) Nucleated RBC % Seg Neutrophils # Seg Neutrophils # Man Lymphocytes # (Manual) Monocytes # (Manual) Eosinophils # (Manual) PT INR Fibrinogen dRVVT Confirm Interp Factor V Activity 182 H POC ABG pH POC ABG pCO2 POC ABG pO2 Sodium Potassium Chloride Carbon Dioxide BUN Creatinine Glucose POC Glucose 184 H 216 H Lactic Acid Calcium Phosphorus Magnesium Direct Bilirubin ALT Alkaline Phosphatase Troponin T C-Reactive Protein Total Protein Albumin Triglycerides Cholesterol LDL Cholesterol Direct HDL Cholesterol Urine WBC (Auto) Urine Creatinine Urine Total Protein Vancomycin Trough Rheumatoid Factor Complement C4 Miscellaneous Test Crossmatch 09/09/16 09/09/16 09/09/16 03:00 03:00 04:04 WBC 27.9 H RBC Hgb 8.7 L Hct 28.1 L MCV 72 L MCH 22 L MCHC RDW 18.4 H Plt Count 485 H Lymph % (Auto) Dare % (Auto) Lymph # Dare # Seg Neutrophils % Seg Neuts % (Manual) 77.0 H Lymphocytes % (Manual) 9.0 L Monocytes % (Manual) Eosinophils % (Manual) Basophils % (Manual) Nucleated RBC % Seg Neutrophils # Seg Neutrophils # Man 21.5 H Lymphocytes # (Manual) Monocytes # (Manual) 2.0 H Eosinophils # (Manual) PT INR Fibrinogen dRVVT Confirm Interp Factor V Activity POC ABG pH POC ABG pCO2 POC ABG pO2 121 H Sodium 135 L Potassium Chloride 96.3 L Carbon Dioxide 21 L BUN 83 H Creatinine 3.0 H Glucose 135 H POC Glucose Lactic Acid Calcium Phosphorus Magnesium Direct Bilirubin ALT Alkaline Phosphatase Troponin T C-Reactive Protein Total Protein Albumin Triglycerides Cholesterol LDL Cholesterol Direct HDL Cholesterol Urine WBC (Auto) Urine Creatinine Urine Total Protein Vancomycin Trough Rheumatoid Factor Complement C4 Miscellaneous Test Crossmatch 09/09/16 09/09/16 09/09/16 05:41 11:55 14:13 WBC RBC Hgb Hct MCV MCH MCHC RDW Plt Count Lymph % (Auto) Dare % (Auto) Lymph # Dare # Seg Neutrophils % Seg Neuts % (Manual) Lymphocytes % (Manual) Monocytes % (Manual) Eosinophils % (Manual) Basophils % (Manual) Nucleated RBC % Seg Neutrophils # Seg Neutrophils # Man Lymphocytes # (Manual) Monocytes # (Manual) Eosinophils # (Manual) PT INR Fibrinogen dRVVT Confirm Interp Factor V Activity POC ABG pH POC ABG pCO2 POC ABG pO2 Sodium Potassium Chloride Carbon Dioxide BUN Creatinine Glucose POC Glucose 155 H 186 H Lactic Acid Calcium Phosphorus Magnesium Direct Bilirubin ALT Alkaline Phosphatase Troponin T C-Reactive Protein Total Protein Albumin Triglycerides Cholesterol LDL Cholesterol Direct HDL Cholesterol Urine WBC (Auto) 25.0 H Urine Creatinine Urine Total Protein Vancomycin Trough Rheumatoid Factor Complement C4 Miscellaneous Test Crossmatch 09/09/16 09/09/16 09/10/16 17:33 23:13 05:09 WBC RBC Hgb Hct MCV MCH MCHC RDW Plt Count Lymph % (Auto) Dare % (Auto) Lymph # Dare # Seg Neutrophils % Seg Neuts % (Manual) Lymphocytes % (Manual) Monocytes % (Manual) Eosinophils % (Manual) Basophils % (Manual) Nucleated RBC % Seg Neutrophils # Seg Neutrophils # Man Lymphocytes # (Manual) Monocytes # (Manual) Eosinophils # (Manual) PT INR Fibrinogen dRVVT Confirm Interp Factor V Activity POC ABG pH POC ABG pCO2 POC ABG pO2 74 L Sodium Potassium Chloride Carbon Dioxide BUN Creatinine Glucose POC Glucose 211 H 215 H Lactic Acid Calcium Phosphorus Magnesium Direct Bilirubin ALT Alkaline Phosphatase Troponin T C-Reactive Protein Total Protein Albumin Triglycerides Cholesterol LDL Cholesterol Direct HDL Cholesterol Urine WBC (Auto) Urine Creatinine Urine Total Protein Vancomycin Trough Rheumatoid Factor Complement C4 Miscellaneous Test Crossmatch 09/10/16 09/10/16 09/10/16 05:17 05:17 11:31 WBC 15.8 H RBC 3.25 L Hgb 7.3 L Hct 22.9 L MCV 71 L MCH 23 L MCHC RDW 18.4 H Plt Count Lymph % (Auto) Dare % (Auto) Lymph # Dare # Seg Neutrophils % Seg Neuts % (Manual) 91.0 H Lymphocytes % (Manual) 4.0 L Monocytes % (Manual) Eosinophils % (Manual) Basophils % (Manual) Nucleated RBC % Seg Neutrophils # Seg Neutrophils # Man 14.4 H Lymphocytes # (Manual) 0.6 L Monocytes # (Manual) Eosinophils # (Manual) PT INR Fibrinogen dRVVT Confirm Interp Factor V Activity POC ABG pH POC ABG pCO2 POC ABG pO2 Sodium Potassium Chloride Carbon Dioxide 21 L BUN 93 H Creatinine 2.9 H Glucose 146 H POC Glucose 188 H Lactic Acid Calcium 8.1 L Phosphorus Magnesium Direct Bilirubin ALT Alkaline Phosphatase Troponin T C-Reactive Protein Total Protein Albumin Triglycerides Cholesterol LDL Cholesterol Direct HDL Cholesterol Urine WBC (Auto) Urine Creatinine Urine Total Protein Vancomycin Trough Rheumatoid Factor Complement C4 Miscellaneous Test Crossmatch 09/10/16 09/10/16 09/10/16 13:17 17:20 23:32 WBC RBC Hgb Hct MCV MCH MCHC RDW Plt Count Lymph % (Auto) Dare % (Auto) Lymph # Dare # Seg Neutrophils % Seg Neuts % (Manual) Lymphocytes % (Manual) Monocytes % (Manual) Eosinophils % (Manual) Basophils % (Manual) Nucleated RBC % Seg Neutrophils # Seg Neutrophils # Man Lymphocytes # (Manual) Monocytes # (Manual) Eosinophils # (Manual) PT INR Fibrinogen dRVVT Confirm Interp Factor V Activity POC ABG pH POC ABG pCO2 POC ABG pO2 Sodium Potassium Chloride Carbon Dioxide BUN Creatinine Glucose POC Glucose 199 H 186 H Lactic Acid Calcium Phosphorus Magnesium Direct Bilirubin ALT Alkaline Phosphatase Troponin T C-Reactive Protein Total Protein Albumin Triglycerides Cholesterol LDL Cholesterol Direct HDL Cholesterol Urine WBC (Auto) Urine Creatinine Urine Total Protein Vancomycin Trough Rheumatoid Factor Complement C4 Miscellaneous Test Crossmatch See Detail 09/11/16 09/11/16 09/11/16 05:10 05:10 05:17 WBC 28.4 H RBC Hgb 9.2 L Hct 29.3 L D MCV 73 L MCH 23 L MCHC RDW 18.9 H Plt Count 452 H Lymph % (Auto) Dare % (Auto) Lymph # Dare # Seg Neutrophils % Seg Neuts % (Manual) 89.5 H Lymphocytes % (Manual) 2.0 L Monocytes % (Manual) Eosinophils % (Manual) Basophils % (Manual) Nucleated RBC % Seg Neutrophils # Seg Neutrophils # Man 25.4 H Lymphocytes # (Manual) 0.6 L Monocytes # (Manual) 1.3 H Eosinophils # (Manual) PT INR Fibrinogen dRVVT Confirm Interp Factor V Activity POC ABG pH POC ABG pCO2 POC ABG pO2 Sodium 136 L Potassium Chloride Carbon Dioxide 18 L BUN 107 H Creatinine 2.6 H Glucose 187 H POC Glucose 230 H Lactic Acid Calcium 8.3 L Phosphorus Magnesium Direct Bilirubin ALT Alkaline Phosphatase Troponin T C-Reactive Protein Total Protein Albumin Triglycerides Cholesterol LDL Cholesterol Direct HDL Cholesterol Urine WBC (Auto) Urine Creatinine Urine Total Protein Vancomycin Trough Rheumatoid Factor Complement C4 Miscellaneous Test Crossmatch 09/11/16 09/11/16 09/11/16 05:55 12:02 17:32 WBC RBC Hgb Hct MCV MCH MCHC RDW Plt Count Lymph % (Auto) Dare % (Auto) Lymph # Dare # Seg Neutrophils % Seg Neuts % (Manual) Lymphocytes % (Manual) Monocytes % (Manual) Eosinophils % (Manual) Basophils % (Manual) Nucleated RBC % Seg Neutrophils # Seg Neutrophils # Man Lymphocytes # (Manual) Monocytes # (Manual) Eosinophils # (Manual) PT INR Fibrinogen dRVVT Confirm Interp Factor V Activity POC ABG pH POC ABG pCO2 33.8 L POC ABG pO2 Sodium Potassium Chloride Carbon Dioxide BUN Creatinine Glucose POC Glucose 191 H 239 H Lactic Acid Calcium Phosphorus Magnesium Direct Bilirubin ALT Alkaline Phosphatase Troponin T C-Reactive Protein Total Protein Albumin Triglycerides Cholesterol LDL Cholesterol Direct HDL Cholesterol Urine WBC (Auto) Urine Creatinine Urine Total Protein Vancomycin Trough Rheumatoid Factor Complement C4 Miscellaneous Test Crossmatch 09/11/16 09/12/16 09/12/16 23:52 05:09 05:32 WBC RBC Hgb Hct MCV MCH MCHC RDW Plt Count Lymph % (Auto) Dare % (Auto) Lymph # Dare # Seg Neutrophils % Seg Neuts % (Manual) Lymphocytes % (Manual) Monocytes % (Manual) Eosinophils % (Manual) Basophils % (Manual) Nucleated RBC % Seg Neutrophils # Seg Neutrophils # Man Lymphocytes # (Manual) Monocytes # (Manual) Eosinophils # (Manual) PT INR Fibrinogen dRVVT Confirm Interp Factor V Activity POC ABG pH POC ABG pCO2 34.6 L POC ABG pO2 Sodium Potassium Chloride Carbon Dioxide BUN Creatinine Glucose POC Glucose 265 H 184 H Lactic Acid Calcium Phosphorus Magnesium Direct Bilirubin ALT Alkaline Phosphatase Troponin T C-Reactive Protein Total Protein Albumin Triglycerides Cholesterol LDL Cholesterol Direct HDL Cholesterol Urine WBC (Auto) Urine Creatinine Urine Total Protein Vancomycin Trough Rheumatoid Factor Complement C4 Miscellaneous Test Crossmatch 09/12/16 09/12/16 09/12/16 06:45 06:45 07:22 WBC 31.7 H RBC 3.54 L Hgb 8.3 L Hct 25.9 L MCV 73 L MCH 23 L MCHC RDW 18.9 H Plt Count Lymph % (Auto) Dare % (Auto) Lymph # Dare # Seg Neutrophils % Seg Neuts % (Manual) 88.5 H Lymphocytes % (Manual) 4.5 L Monocytes % (Manual) Eosinophils % (Manual) Basophils % (Manual) Nucleated RBC % Seg Neutrophils # Seg Neutrophils # Man 28.1 H Lymphocytes # (Manual) Monocytes # (Manual) 1.0 H Eosinophils # (Manual) PT INR Fibrinogen dRVVT Confirm Interp Factor V Activity POC ABG pH POC ABG pCO2 POC ABG pO2 Sodium Potassium Chloride Carbon Dioxide 20 L BUN 115 H Creatinine 2.7 H Glucose 165 H POC Glucose Lactic Acid Calcium 8.0 L Phosphorus Magnesium Direct Bilirubin ALT Alkaline Phosphatase Troponin T C-Reactive Protein Total Protein Albumin Triglycerides 217 H Cholesterol LDL Cholesterol Direct HDL Cholesterol Urine WBC (Auto) Urine Creatinine Urine Total Protein Vancomycin Trough Rheumatoid Factor Complement C4 Miscellaneous Test Crossmatch 09/12/16 09/12/16 09/12/16 07:22 09:59 12:21 WBC RBC Hgb Hct MCV MCH MCHC RDW Plt Count Lymph % (Auto) Dare % (Auto) Lymph # Dare # Seg Neutrophils % Seg Neuts % (Manual) Lymphocytes % (Manual) Monocytes % (Manual) Eosinophils % (Manual) Basophils % (Manual) Nucleated RBC % Seg Neutrophils # Seg Neutrophils # Man Lymphocytes # (Manual) Monocytes # (Manual) Eosinophils # (Manual) PT INR Fibrinogen dRVVT Confirm Interp Positive H Factor V Activity POC ABG pH POC ABG pCO2 POC ABG pO2 Sodium Potassium Chloride Carbon Dioxide BUN Creatinine Glucose POC Glucose 224 H Lactic Acid Calcium Phosphorus Magnesium Direct Bilirubin ALT Alkaline Phosphatase Troponin T C-Reactive Protein 1.70 H Total Protein Albumin Triglycerides Cholesterol LDL Cholesterol Direct HDL Cholesterol Urine WBC (Auto) Urine Creatinine Urine Total Protein Vancomycin Trough Rheumatoid Factor Complement C4 Miscellaneous Test Crossmatch 09/12/16 09/12/16 09/13/16 16:51 23:28 04:00 WBC 45.0 H* RBC Hgb 9.4 L Hct MCV 75 L MCH 23 L MCHC RDW 19.0 H Plt Count 470 H Lymph % (Auto) Dare % (Auto) Lymph # Dare # Seg Neutrophils % Seg Neuts % (Manual) 89.0 H Lymphocytes % (Manual) 5.0 L Monocytes % (Manual) Eosinophils % (Manual) Basophils % (Manual) Nucleated RBC % Seg Neutrophils # Seg Neutrophils # Man 40.1 H Lymphocytes # (Manual) Monocytes # (Manual) Eosinophils # (Manual) PT INR Fibrinogen dRVVT Confirm Interp Factor V Activity POC ABG pH POC ABG pCO2 POC ABG pO2 Sodium Potassium Chloride Carbon Dioxide BUN Creatinine Glucose POC Glucose 169 H 150 H Lactic Acid Calcium Phosphorus Magnesium Direct Bilirubin ALT Alkaline Phosphatase Troponin T C-Reactive Protein Total Protein Albumin Triglycerides Cholesterol LDL Cholesterol Direct HDL Cholesterol Urine WBC (Auto) Urine Creatinine Urine Total Protein Vancomycin Trough Rheumatoid Factor Complement C4 Miscellaneous Test Crossmatch 09/13/16 09/13/16 09/13/16 04:00 11:26 17:31 WBC RBC Hgb Hct MCV MCH MCHC RDW Plt Count Lymph % (Auto) Dare % (Auto) Lymph # Dare # Seg Neutrophils % Seg Neuts % (Manual) Lymphocytes % (Manual) Monocytes % (Manual) Eosinophils % (Manual) Basophils % (Manual) Nucleated RBC % Seg Neutrophils # Seg Neutrophils # Man Lymphocytes # (Manual) Monocytes # (Manual) Eosinophils # (Manual) PT INR Fibrinogen dRVVT Confirm Interp Factor V Activity POC ABG pH POC ABG pCO2 POC ABG pO2 Sodium Potassium Chloride Carbon Dioxide 20 L BUN 116 H Creatinine 3.0 H Glucose 172 H POC Glucose 140 H 183 H Lactic Acid Calcium Phosphorus Magnesium Direct Bilirubin ALT Alkaline Phosphatase Troponin T C-Reactive Protein Total Protein 6.2 L Albumin 2.9 L Triglycerides Cholesterol LDL Cholesterol Direct HDL Cholesterol Urine WBC (Auto) Urine Creatinine Urine Total Protein Vancomycin Trough Rheumatoid Factor Complement C4 Miscellaneous Test Crossmatch 09/13/16 09/14/16 09/14/16 23:23 04:06 04:07 WBC 29.4 H RBC Hgb 8.9 L Hct 27.3 L MCV 75 L MCH 24 L MCHC RDW 19.1 H Plt Count Lymph % (Auto) Dare % (Auto) Lymph # Dare # Seg Neutrophils % Seg Neuts % (Manual) 84.0 H Lymphocytes % (Manual) 6.0 L Monocytes % (Manual) 9.0 H Eosinophils % (Manual) Basophils % (Manual) Nucleated RBC % Seg Neutrophils # Seg Neutrophils # Man 24.7 H Lymphocytes # (Manual) Monocytes # (Manual) 2.6 H Eosinophils # (Manual) PT INR Fibrinogen dRVVT Confirm Interp Factor V Activity POC ABG pH 7.342 L POC ABG pCO2 POC ABG pO2 116 H Sodium Potassium Chloride Carbon Dioxide BUN Creatinine Glucose POC Glucose 154 H Lactic Acid Calcium Phosphorus Magnesium Direct Bilirubin ALT Alkaline Phosphatase Troponin T C-Reactive Protein Total Protein Albumin Triglycerides Cholesterol LDL Cholesterol Direct HDL Cholesterol Urine WBC (Auto) Urine Creatinine Urine Total Protein Vancomycin Trough Rheumatoid Factor Complement C4 Miscellaneous Test Crossmatch 09/14/16 09/14/16 09/14/16 04:07 05:29 12:19 WBC RBC Hgb Hct MCV MCH MCHC RDW Plt Count Lymph % (Auto) Dare % (Auto) Lymph # Dare # Seg Neutrophils % Seg Neuts % (Manual) Lymphocytes % (Manual) Monocytes % (Manual) Eosinophils % (Manual) Basophils % (Manual) Nucleated RBC % Seg Neutrophils # Seg Neutrophils # Man Lymphocytes # (Manual) Monocytes # (Manual) Eosinophils # (Manual) PT INR Fibrinogen dRVVT Confirm Interp Factor V Activity POC ABG pH POC ABG pCO2 POC ABG pO2 Sodium 136 L Potassium Chloride Carbon Dioxide 18 L BUN 121 H Creatinine 2.8 H Glucose 214 H POC Glucose 239 H 181 H Lactic Acid Calcium Phosphorus Magnesium Direct Bilirubin ALT Alkaline Phosphatase Troponin T C-Reactive Protein Total Protein Albumin Triglycerides Cholesterol LDL Cholesterol Direct HDL Cholesterol Urine WBC (Auto) Urine Creatinine Urine Total Protein Vancomycin Trough Rheumatoid Factor Complement C4 Miscellaneous Test Crossmatch 09/14/16 09/14/16 09/15/16 18:12 23:37 05:00 WBC 26.1 H RBC 3.05 L Hgb 7.2 L Hct 22.9 L MCV 75 L MCH 24 L MCHC RDW 19.0 H Plt Count Lymph % (Auto) Dare % (Auto) Lymph # Dare # Seg Neutrophils % Seg Neuts % (Manual) Lymphocytes % (Manual) Monocytes % (Manual) Eosinophils % (Manual) Basophils % (Manual) Nucleated RBC % Seg Neutrophils # Seg Neutrophils # Man Lymphocytes # (Manual) Monocytes # (Manual) Eosinophils # (Manual) PT INR Fibrinogen dRVVT Confirm Interp Factor V Activity POC ABG pH POC ABG pCO2 POC ABG pO2 Sodium Potassium Chloride Carbon Dioxide BUN Creatinine Glucose POC Glucose 266 H 154 H Lactic Acid Calcium Phosphorus Magnesium Direct Bilirubin ALT Alkaline Phosphatase Troponin T C-Reactive Protein Total Protein Albumin Triglycerides Cholesterol LDL Cholesterol Direct HDL Cholesterol Urine WBC (Auto) Urine Creatinine Urine Total Protein Vancomycin Trough Rheumatoid Factor Complement C4 Miscellaneous Test Crossmatch 09/15/16 09/15/16 09/15/16 05:00 05:17 12:45 WBC RBC Hgb Hct MCV MCH MCHC RDW Plt Count Lymph % (Auto) Dare % (Auto) Lymph # Dare # Seg Neutrophils % Seg Neuts % (Manual) Lymphocytes % (Manual) Monocytes % (Manual) Eosinophils % (Manual) Basophils % (Manual) Nucleated RBC % Seg Neutrophils # Seg Neutrophils # Man Lymphocytes # (Manual) Monocytes # (Manual) Eosinophils # (Manual) PT INR Fibrinogen dRVVT Confirm Interp Factor V Activity POC ABG pH POC ABG pCO2 POC ABG pO2 Sodium Potassium 5.2 H Chloride Carbon Dioxide 18 L BUN 139 H Creatinine 3.7 H Glucose 227 H POC Glucose 226 H 244 H Lactic Acid Calcium 8.3 L Phosphorus Magnesium Direct Bilirubin ALT Alkaline Phosphatase Troponin T C-Reactive Protein Total Protein Albumin Triglycerides Cholesterol LDL Cholesterol Direct HDL Cholesterol Urine WBC (Auto) Urine Creatinine Urine Total Protein Vancomycin Trough Rheumatoid Factor Complement C4 Miscellaneous Test Crossmatch 09/15/16 09/15/16 09/15/16 14:32 17:33 23:35 WBC RBC Hgb Hct MCV MCH MCHC RDW Plt Count Lymph % (Auto) Dare % (Auto) Lymph # Dare # Seg Neutrophils % Seg Neuts % (Manual) Lymphocytes % (Manual) Monocytes % (Manual) Eosinophils % (Manual) Basophils % (Manual) Nucleated RBC % Seg Neutrophils # Seg Neutrophils # Man Lymphocytes # (Manual) Monocytes # (Manual) Eosinophils # (Manual) PT INR Fibrinogen dRVVT Confirm Interp Factor V Activity POC ABG pH POC ABG pCO2 27.7 L POC ABG pO2 120 H Sodium Potassium Chloride Carbon Dioxide BUN Creatinine Glucose POC Glucose 232 H 167 H Lactic Acid Calcium Phosphorus Magnesium Direct Bilirubin ALT Alkaline Phosphatase Troponin T C-Reactive Protein Total Protein Albumin Triglycerides Cholesterol LDL Cholesterol Direct HDL Cholesterol Urine WBC (Auto) Urine Creatinine Urine Total Protein Vancomycin Trough Rheumatoid Factor Complement C4 Miscellaneous Test Crossmatch 09/16/16 09/16/16 09/16/16 03:58 10:27 10:27 WBC 19.0 H RBC 2.77 L Hgb 6.5 L Hct 20.9 L MCV 76 L MCH 23 L MCHC RDW 19.3 H Plt Count Lymph % (Auto) 11.0 L Dare % (Auto) Lymph # Dare # 1.1 H Seg Neutrophils % 82.5 H Seg Neuts % (Manual) Lymphocytes % (Manual) Monocytes % (Manual) Eosinophils % (Manual) Basophils % (Manual) Nucleated RBC % Seg Neutrophils # 15.7 H Seg Neutrophils # Man Lymphocytes # (Manual) Monocytes # (Manual) Eosinophils # (Manual) PT INR Fibrinogen dRVVT Confirm Interp Factor V Activity POC ABG pH POC ABG pCO2 POC ABG pO2 Sodium Potassium Chloride 109.3 H Carbon Dioxide 18 L BUN 139 H Creatinine 4.1 H Glucose 144 H POC Glucose 146 H Lactic Acid Calcium 8.1 L Phosphorus Magnesium Direct Bilirubin ALT Alkaline Phosphatase Troponin T C-Reactive Protein Total Protein Albumin Triglycerides Cholesterol LDL Cholesterol Direct HDL Cholesterol Urine WBC (Auto) Urine Creatinine Urine Total Protein Vancomycin Trough Rheumatoid Factor Complement C4 Miscellaneous Test Crossmatch 09/16/16 09/16/16 09/16/16 12:04 12:10 13:55 WBC RBC Hgb Hct MCV MCH MCHC RDW Plt Count Lymph % (Auto) Dare % (Auto) Lymph # Dare # Seg Neutrophils % Seg Neuts % (Manual) Lymphocytes % (Manual) Monocytes % (Manual) Eosinophils % (Manual) Basophils % (Manual) Nucleated RBC % Seg Neutrophils # Seg Neutrophils # Man Lymphocytes # (Manual) Monocytes # (Manual) Eosinophils # (Manual) PT INR Fibrinogen dRVVT Confirm Interp Factor V Activity POC ABG pH POC ABG pCO2 32.9 L POC ABG pO2 Sodium Potassium Chloride Carbon Dioxide BUN Creatinine Glucose POC Glucose 185 H Lactic Acid Calcium Phosphorus Magnesium Direct Bilirubin ALT Alkaline Phosphatase Troponin T C-Reactive Protein Total Protein Albumin Triglycerides Cholesterol LDL Cholesterol Direct HDL Cholesterol Urine WBC (Auto) Urine Creatinine Urine Total Protein Vancomycin Trough Rheumatoid Factor Complement C4 Miscellaneous Test Crossmatch See Detail 09/16/16 09/16/16 09/16/16 17:55 19:19 23:48 WBC RBC Hgb Hct MCV MCH MCHC RDW Plt Count Lymph % (Auto) Dare % (Auto) Lymph # Dare # Seg Neutrophils % Seg Neuts % (Manual) Lymphocytes % (Manual) Monocytes % (Manual) Eosinophils % (Manual) Basophils % (Manual) Nucleated RBC % Seg Neutrophils # Seg Neutrophils # Man Lymphocytes # (Manual) Monocytes # (Manual) Eosinophils # (Manual) PT INR Fibrinogen dRVVT Confirm Interp Factor V Activity POC ABG pH POC ABG pCO2 POC ABG pO2 Sodium Potassium Chloride Carbon Dioxide BUN Creatinine Glucose POC Glucose 222 H 107 H Lactic Acid Calcium Phosphorus Magnesium Direct Bilirubin ALT Alkaline Phosphatase Troponin T C-Reactive Protein Total Protein Albumin Triglycerides Cholesterol LDL Cholesterol Direct HDL Cholesterol Urine WBC (Auto) Urine Creatinine 47.4 H Urine Total Protein 16 H Vancomycin Trough Rheumatoid Factor Complement C4 Miscellaneous Test Crossmatch 09/17/16 09/17/16 09/17/16 03:45 03:45 04:55 WBC 19.6 H RBC 3.41 L Hgb 8.5 L Hct 26.7 L MCV 78 L MCH 25 L MCHC RDW 19.9 H Plt Count Lymph % (Auto) 9.3 L Dare % (Auto) Lymph # Dare # 1.2 H Seg Neutrophils % 83.9 H Seg Neuts % (Manual) Lymphocytes % (Manual) Monocytes % (Manual) Eosinophils % (Manual) Basophils % (Manual) Nucleated RBC % Seg Neutrophils # 16.4 H Seg Neutrophils # Man Lymphocytes # (Manual) Monocytes # (Manual) Eosinophils # (Manual) PT INR Fibrinogen dRVVT Confirm Interp Factor V Activity POC ABG pH POC ABG pCO2 POC ABG pO2 Sodium 146 H Potassium 5.1 H Chloride 110.9 H Carbon Dioxide 16 L BUN 146 H Creatinine 4.0 H Glucose 108 H POC Glucose 133 H Lactic Acid Calcium Phosphorus Magnesium 3.00 H Direct Bilirubin ALT Alkaline Phosphatase Troponin T C-Reactive Protein Total Protein Albumin Triglycerides Cholesterol LDL Cholesterol Direct HDL Cholesterol Urine WBC (Auto) Urine Creatinine Urine Total Protein Vancomycin Trough Rheumatoid Factor Complement C4 Miscellaneous Test Crossmatch 09/17/16 09/17/16 09/17/16 11:15 17:33 23:47 WBC RBC Hgb Hct MCV MCH MCHC RDW Plt Count Lymph % (Auto) Dare % (Auto) Lymph # Dare # Seg Neutrophils % Seg Neuts % (Manual) Lymphocytes % (Manual) Monocytes % (Manual) Eosinophils % (Manual) Basophils % (Manual) Nucleated RBC % Seg Neutrophils # Seg Neutrophils # Man Lymphocytes # (Manual) Monocytes # (Manual) Eosinophils # (Manual) PT INR Fibrinogen dRVVT Confirm Interp Factor V Activity POC ABG pH POC ABG pCO2 POC ABG pO2 Sodium Potassium Chloride Carbon Dioxide BUN Creatinine Glucose POC Glucose 176 H 246 H 148 H Lactic Acid Calcium Phosphorus Magnesium Direct Bilirubin ALT Alkaline Phosphatase Troponin T C-Reactive Protein Total Protein Albumin Triglycerides Cholesterol LDL Cholesterol Direct HDL Cholesterol Urine WBC (Auto) Urine Creatinine Urine Total Protein Vancomycin Trough Rheumatoid Factor Complement C4 Miscellaneous Test Crossmatch 09/18/16 09/18/16 09/18/16 05:33 08:31 08:31 WBC 18.0 H RBC 3.17 L Hgb 9.0 L Hct 25.7 L MCV MCH MCHC 35 H RDW 20.4 H Plt Count Lymph % (Auto) Dare % (Auto) Lymph # Dare # Seg Neutrophils % Seg Neuts % (Manual) Lymphocytes % (Manual) Monocytes % (Manual) Eosinophils % (Manual) Basophils % (Manual) Nucleated RBC % Seg Neutrophils # Seg Neutrophils # Man Lymphocytes # (Manual) Monocytes # (Manual) Eosinophils # (Manual) PT INR Fibrinogen dRVVT Confirm Interp Factor V Activity POC ABG pH POC ABG pCO2 POC ABG pO2 Sodium Potassium Chloride Carbon Dioxide 15 L BUN 124 H Creatinine 3.8 H Glucose POC Glucose 120 H Lactic Acid Calcium 8.1 L Phosphorus Magnesium Direct Bilirubin ALT Alkaline Phosphatase Troponin T C-Reactive Protein Total Protein Albumin Triglycerides Cholesterol LDL Cholesterol Direct HDL Cholesterol Urine WBC (Auto) Urine Creatinine Urine Total Protein Vancomycin Trough Rheumatoid Factor Complement C4 Miscellaneous Test Crossmatch 09/18/16 09/18/16 09/18/16 12:03 15:34 17:50 WBC RBC Hgb Hct MCV MCH MCHC RDW Plt Count Lymph % (Auto) Dare % (Auto) Lymph # Dare # Seg Neutrophils % Seg Neuts % (Manual) Lymphocytes % (Manual) Monocytes % (Manual) Eosinophils % (Manual) Basophils % (Manual) Nucleated RBC % Seg Neutrophils # Seg Neutrophils # Man Lymphocytes # (Manual) Monocytes # (Manual) Eosinophils # (Manual) PT INR Fibrinogen dRVVT Confirm Interp Factor V Activity POC ABG pH POC ABG pCO2 25.7 L POC ABG pO2 66 L Sodium Potassium Chloride Carbon Dioxide BUN Creatinine Glucose POC Glucose 156 H 220 H Lactic Acid Calcium Phosphorus Magnesium Direct Bilirubin ALT Alkaline Phosphatase Troponin T C-Reactive Protein Total Protein Albumin Triglycerides Cholesterol LDL Cholesterol Direct HDL Cholesterol Urine WBC (Auto) Urine Creatinine Urine Total Protein Vancomycin Trough Rheumatoid Factor Complement C4 Miscellaneous Test Crossmatch 09/19/16 09/19/16 09/19/16 06:21 09:50 09:50 WBC 17.1 H RBC 3.49 L Hgb 9.0 L Hct 28.1 L MCV MCH 26 L MCHC RDW 20.8 H Plt Count Lymph % (Auto) 11.5 L Dare % (Auto) 7.5 H Lymph # Dare # 1.3 H Seg Neutrophils % 79.8 H Seg Neuts % (Manual) Lymphocytes % (Manual) Monocytes % (Manual) Eosinophils % (Manual) Basophils % (Manual) Nucleated RBC % Seg Neutrophils # 13.7 H Seg Neutrophils # Man Lymphocytes # (Manual) Monocytes # (Manual) Eosinophils # (Manual) PT INR Fibrinogen dRVVT Confirm Interp Factor V Activity POC ABG pH POC ABG pCO2 POC ABG pO2 Sodium Potassium Chloride 108.6 H Carbon Dioxide 15 L BUN 125 H Creatinine 4.1 H Glucose 124 H POC Glucose 119 H Lactic Acid Calcium Phosphorus Magnesium Direct Bilirubin ALT Alkaline Phosphatase Troponin T C-Reactive Protein Total Protein Albumin Triglycerides Cholesterol LDL Cholesterol Direct HDL Cholesterol Urine WBC (Auto) Urine Creatinine Urine Total Protein Vancomycin Trough Rheumatoid Factor Complement C4 Miscellaneous Test Crossmatch 09/19/16 09/19/16 09/19/16 11:25 17:53 23:36 WBC RBC Hgb Hct MCV MCH MCHC RDW Plt Count Lymph % (Auto) Dare % (Auto) Lymph # Dare # Seg Neutrophils % Seg Neuts % (Manual) Lymphocytes % (Manual) Monocytes % (Manual) Eosinophils % (Manual) Basophils % (Manual) Nucleated RBC % Seg Neutrophils # Seg Neutrophils # Man Lymphocytes # (Manual) Monocytes # (Manual) Eosinophils # (Manual) PT INR Fibrinogen dRVVT Confirm Interp Factor V Activity POC ABG pH POC ABG pCO2 POC ABG pO2 Sodium Potassium Chloride Carbon Dioxide BUN Creatinine Glucose POC Glucose 160 H 245 H 121 H Lactic Acid Calcium Phosphorus Magnesium Direct Bilirubin ALT Alkaline Phosphatase Troponin T C-Reactive Protein Total Protein Albumin Triglycerides Cholesterol LDL Cholesterol Direct HDL Cholesterol Urine WBC (Auto) Urine Creatinine Urine Total Protein Vancomycin Trough Rheumatoid Factor Complement C4 Miscellaneous Test Crossmatch 09/20/16 09/20/16 09/20/16 04:10 04:10 04:10 WBC 17.0 H RBC 3.21 L Hgb 8.2 L Hct 25.5 L MCV MCH 26 L MCHC RDW 20.9 H Plt Count Lymph % (Auto) Dare % (Auto) Lymph # Dare # Seg Neutrophils % Seg Neuts % (Manual) Lymphocytes % (Manual) Monocytes % (Manual) Eosinophils % (Manual) Basophils % (Manual) Nucleated RBC % Seg Neutrophils # Seg Neutrophils # Man Lymphocytes # (Manual) Monocytes # (Manual) Eosinophils # (Manual) PT INR Fibrinogen dRVVT Confirm Interp Factor V Activity POC ABG pH POC ABG pCO2 POC ABG pO2 Sodium Potassium Chloride 111.0 H Carbon Dioxide 16 L BUN 129 H Creatinine 3.7 H Glucose 115 H POC Glucose Lactic Acid Calcium 8.2 L Phosphorus Magnesium Direct Bilirubin ALT Alkaline Phosphatase Troponin T C-Reactive Protein Total Protein Albumin Triglycerides 243 H Cholesterol LDL Cholesterol Direct HDL Cholesterol Urine WBC (Auto) Urine Creatinine Urine Total Protein Vancomycin Trough Rheumatoid Factor Complement C4 Miscellaneous Test Crossmatch 09/20/16 09/20/16 09/20/16 05:40 11:52 16:50 WBC RBC Hgb Hct MCV MCH MCHC RDW Plt Count Lymph % (Auto) Dare % (Auto) Lymph # Dare # Seg Neutrophils % Seg Neuts % (Manual) Lymphocytes % (Manual) Monocytes % (Manual) Eosinophils % (Manual) Basophils % (Manual) Nucleated RBC % Seg Neutrophils # Seg Neutrophils # Man Lymphocytes # (Manual) Monocytes # (Manual) Eosinophils # (Manual) PT INR Fibrinogen dRVVT Confirm Interp Factor V Activity POC ABG pH POC ABG pCO2 POC ABG pO2 Sodium Potassium Chloride Carbon Dioxide BUN Creatinine Glucose POC Glucose 131 H 183 H 236 H Lactic Acid Calcium Phosphorus Magnesium Direct Bilirubin ALT Alkaline Phosphatase Troponin T C-Reactive Protein Total Protein Albumin Triglycerides Cholesterol LDL Cholesterol Direct HDL Cholesterol Urine WBC (Auto) Urine Creatinine Urine Total Protein Vancomycin Trough Rheumatoid Factor Complement C4 Miscellaneous Test Crossmatch 09/20/16 09/21/16 09/21/16 23:51 03:30 04:44 WBC RBC Hgb Hct MCV MCH MCHC RDW Plt Count Lymph % (Auto) Dare % (Auto) Lymph # Dare # Seg Neutrophils % Seg Neuts % (Manual) Lymphocytes % (Manual) Monocytes % (Manual) Eosinophils % (Manual) Basophils % (Manual) Nucleated RBC % Seg Neutrophils # Seg Neutrophils # Man Lymphocytes # (Manual) Monocytes # (Manual) Eosinophils # (Manual) PT INR Fibrinogen dRVVT Confirm Interp Factor V Activity POC ABG pH POC ABG pCO2 POC ABG pO2 Sodium Potassium Chloride Carbon Dioxide BUN Creatinine Glucose POC Glucose 114 H 141 H Lactic Acid Calcium Phosphorus Magnesium 2.70 H Direct Bilirubin ALT Alkaline Phosphatase Troponin T C-Reactive Protein Total Protein Albumin Triglycerides Cholesterol LDL Cholesterol Direct HDL Cholesterol Urine WBC (Auto) Urine Creatinine Urine Total Protein Vancomycin Trough Rheumatoid Factor Complement C4 Miscellaneous Test Crossmatch 09/21/16 09/21/16 09/21/16 07:45 07:45 10:01 WBC 13.8 H RBC 2.94 L Hgb 7.5 L Hct 23.5 L MCV MCH 26 L MCHC RDW 21.2 H Plt Count Lymph % (Auto) 6.9 L Dare % (Auto) 9.4 H Lymph # 0.9 L Dare # 1.3 H Seg Neutrophils % 83.2 H Seg Neuts % (Manual) Lymphocytes % (Manual) Monocytes % (Manual) Eosinophils % (Manual) Basophils % (Manual) Nucleated RBC % Seg Neutrophils # 11.5 H Seg Neutrophils # Man Lymphocytes # (Manual) Monocytes # (Manual) Eosinophils # (Manual) PT INR Fibrinogen dRVVT Confirm Interp Factor V Activity POC ABG pH 7.308 L POC ABG pCO2 31.9 L POC ABG pO2 148 H Sodium 147 H Potassium Chloride 114.2 H Carbon Dioxide 15 L BUN 120 H Creatinine 3.9 H Glucose 156 H POC Glucose Lactic Acid Calcium 8.2 L Phosphorus Magnesium Direct Bilirubin ALT Alkaline Phosphatase Troponin T C-Reactive Protein Total Protein Albumin Triglycerides Cholesterol LDL Cholesterol Direct HDL Cholesterol Urine WBC (Auto) Urine Creatinine Urine Total Protein Vancomycin Trough Rheumatoid Factor Complement C4 Miscellaneous Test Crossmatch 09/21/16 09/21/16 09/21/16 12:00 12:03 13:00 WBC RBC Hgb Hct MCV MCH MCHC RDW Plt Count Lymph % (Auto) Dare % (Auto) Lymph # Dare # Seg Neutrophils % Seg Neuts % (Manual) Lymphocytes % (Manual) Monocytes % (Manual) Eosinophils % (Manual) Basophils % (Manual) Nucleated RBC % Seg Neutrophils # Seg Neutrophils # Man Lymphocytes # (Manual) Monocytes # (Manual) Eosinophils # (Manual) PT INR Fibrinogen dRVVT Confirm Interp Factor V Activity POC ABG pH POC ABG pCO2 POC ABG pO2 Sodium Potassium Chloride Carbon Dioxide BUN Creatinine Glucose POC Glucose 163 H Lactic Acid Calcium Phosphorus Magnesium Direct Bilirubin ALT Alkaline Phosphatase Troponin T C-Reactive Protein Total Protein Albumin Triglycerides Cholesterol LDL Cholesterol Direct HDL Cholesterol Urine WBC (Auto) Urine Creatinine 54.8 H Urine Total Protein Vancomycin Trough 2.3 L Rheumatoid Factor Complement C4 Miscellaneous Test Crossmatch 09/21/16 09/21/16 09/22/16 16:51 23:17 06:27 WBC RBC Hgb Hct MCV MCH MCHC RDW Plt Count Lymph % (Auto) Dare % (Auto) Lymph # Dare # Seg Neutrophils % Seg Neuts % (Manual) Lymphocytes % (Manual) Monocytes % (Manual) Eosinophils % (Manual) Basophils % (Manual) Nucleated RBC % Seg Neutrophils # Seg Neutrophils # Man Lymphocytes # (Manual) Monocytes # (Manual) Eosinophils # (Manual) PT INR Fibrinogen dRVVT Confirm Interp Factor V Activity POC ABG pH POC ABG pCO2 POC ABG pO2 Sodium Potassium Chloride Carbon Dioxide BUN Creatinine Glucose POC Glucose 206 H 114 H 115 H Lactic Acid Calcium Phosphorus Magnesium Direct Bilirubin ALT Alkaline Phosphatase Troponin T C-Reactive Protein Total Protein Albumin Triglycerides Cholesterol LDL Cholesterol Direct HDL Cholesterol Urine WBC (Auto) Urine Creatinine Urine Total Protein Vancomycin Trough Rheumatoid Factor Complement C4 Miscellaneous Test Crossmatch 09/22/16 09/22/16 09/22/16 07:50 07:50 12:00 WBC 17.8 H RBC 3.04 L Hgb 8.0 L Hct 24.7 L MCV MCH 26 L MCHC RDW 21.6 H Plt Count Lymph % (Auto) Dare % (Auto) Lymph # Dare # Seg Neutrophils % Seg Neuts % (Manual) Lymphocytes % (Manual) Monocytes % (Manual) Eosinophils % (Manual) Basophils % (Manual) Nucleated RBC % Seg Neutrophils # Seg Neutrophils # Man Lymphocytes # (Manual) Monocytes # (Manual) Eosinophils # (Manual) PT INR Fibrinogen dRVVT Confirm Interp Factor V Activity POC ABG pH POC ABG pCO2 POC ABG pO2 Sodium 150 H Potassium Chloride 118.2 H Carbon Dioxide 14 L BUN 111 H Creatinine 3.7 H Glucose 157 H POC Glucose 183 H Lactic Acid Calcium Phosphorus Magnesium Direct Bilirubin ALT Alkaline Phosphatase Troponin T C-Reactive Protein Total Protein Albumin Triglycerides Cholesterol LDL Cholesterol Direct HDL Cholesterol Urine WBC (Auto) Urine Creatinine Urine Total Protein Vancomycin Trough Rheumatoid Factor Complement C4 Miscellaneous Test Crossmatch 09/22/16 09/22/16 09/23/16 17:29 23:10 05:00 WBC 19.2 H RBC 3.13 L Hgb 8.0 L Hct 25.2 L MCV MCH 26 L MCHC RDW 22.1 H Plt Count Lymph % (Auto) Dare % (Auto) Lymph # Dare # Seg Neutrophils % Seg Neuts % (Manual) 92.0 H Lymphocytes % (Manual) 3.0 L Monocytes % (Manual) Eosinophils % (Manual) Basophils % (Manual) Nucleated RBC % Seg Neutrophils # Seg Neutrophils # Man 17.7 H Lymphocytes # (Manual) 0.6 L Monocytes # (Manual) Eosinophils # (Manual) PT INR Fibrinogen dRVVT Confirm Interp Factor V Activity POC ABG pH POC ABG pCO2 POC ABG pO2 Sodium Potassium Chloride Carbon Dioxide BUN Creatinine Glucose POC Glucose 197 H 169 H Lactic Acid Calcium Phosphorus Magnesium Direct Bilirubin ALT Alkaline Phosphatase Troponin T C-Reactive Protein Total Protein Albumin Triglycerides Cholesterol LDL Cholesterol Direct HDL Cholesterol Urine WBC (Auto) Urine Creatinine Urine Total Protein Vancomycin Trough Rheumatoid Factor Complement C4 Miscellaneous Test Crossmatch 09/23/16 09/23/16 09/23/16 05:00 05:00 05:10 WBC RBC Hgb Hct MCV MCH MCHC RDW Plt Count Lymph % (Auto) Dare % (Auto) Lymph # Dare # Seg Neutrophils % Seg Neuts % (Manual) Lymphocytes % (Manual) Monocytes % (Manual) Eosinophils % (Manual) Basophils % (Manual) Nucleated RBC % Seg Neutrophils # Seg Neutrophils # Man Lymphocytes # (Manual) Monocytes # (Manual) Eosinophils # (Manual) PT INR Fibrinogen dRVVT Confirm Interp Factor V Activity POC ABG pH POC ABG pCO2 POC ABG pO2 Sodium 147 H Potassium 3.2 L Chloride 115.7 H Carbon Dioxide 13 L BUN 111 H Creatinine 3.8 H Glucose 194 H POC Glucose 188 H Lactic Acid Calcium 7.3 L D Phosphorus Magnesium Direct Bilirubin ALT Alkaline Phosphatase Troponin T C-Reactive Protein 3.20 H Total Protein Albumin Triglycerides Cholesterol LDL Cholesterol Direct HDL Cholesterol Urine WBC (Auto) Urine Creatinine Urine Total Protein Vancomycin Trough Rheumatoid Factor Complement C4 Miscellaneous Test Crossmatch 09/23/16 09/23/16 09/23/16 11:37 12:29 18:01 WBC RBC Hgb Hct MCV MCH MCHC RDW Plt Count Lymph % (Auto) Dare % (Auto) Lymph # Dare # Seg Neutrophils % Seg Neuts % (Manual) Lymphocytes % (Manual) Monocytes % (Manual) Eosinophils % (Manual) Basophils % (Manual) Nucleated RBC % Seg Neutrophils # Seg Neutrophils # Man Lymphocytes # (Manual) Monocytes # (Manual) Eosinophils # (Manual) PT INR Fibrinogen dRVVT Confirm Interp Factor V Activity POC ABG pH POC ABG pCO2 18.9 L POC ABG pO2 143 H Sodium Potassium Chloride Carbon Dioxide BUN Creatinine Glucose POC Glucose 153 H 108 H Lactic Acid Calcium Phosphorus Magnesium Direct Bilirubin ALT Alkaline Phosphatase Troponin T C-Reactive Protein Total Protein Albumin Triglycerides Cholesterol LDL Cholesterol Direct HDL Cholesterol Urine WBC (Auto) Urine Creatinine Urine Total Protein Vancomycin Trough Rheumatoid Factor Complement C4 Miscellaneous Test Crossmatch 09/23/16 09/23/16 09/24/16 21:19 23:43 05:16 WBC RBC Hgb Hct MCV MCH MCHC RDW Plt Count Lymph % (Auto) Dare % (Auto) Lymph # Dare # Seg Neutrophils % Seg Neuts % (Manual) Lymphocytes % (Manual) Monocytes % (Manual) Eosinophils % (Manual) Basophils % (Manual) Nucleated RBC % Seg Neutrophils # Seg Neutrophils # Man Lymphocytes # (Manual) Monocytes # (Manual) Eosinophils # (Manual) PT INR Fibrinogen dRVVT Confirm Interp Factor V Activity POC ABG pH POC ABG pCO2 17.3 L POC ABG pO2 112 H Sodium Potassium Chloride Carbon Dioxide BUN Creatinine Glucose POC Glucose 143 H 164 H Lactic Acid Calcium Phosphorus Magnesium Direct Bilirubin ALT Alkaline Phosphatase Troponin T C-Reactive Protein Total Protein Albumin Triglycerides Cholesterol LDL Cholesterol Direct HDL Cholesterol Urine WBC (Auto) Urine Creatinine Urine Total Protein Vancomycin Trough Rheumatoid Factor Complement C4 Miscellaneous Test Crossmatch 09/24/16 09/24/16 09/24/16 05:21 11:58 17:06 WBC RBC Hgb Hct MCV MCH MCHC RDW Plt Count Lymph % (Auto) Dare % (Auto) Lymph # Dare # Seg Neutrophils % Seg Neuts % (Manual) Lymphocytes % (Manual) Monocytes % (Manual) Eosinophils % (Manual) Basophils % (Manual) Nucleated RBC % Seg Neutrophils # Seg Neutrophils # Man Lymphocytes # (Manual) Monocytes # (Manual) Eosinophils # (Manual) PT INR Fibrinogen dRVVT Confirm Interp Factor V Activity POC ABG pH POC ABG pCO2 POC ABG pO2 Sodium Potassium Chloride Carbon Dioxide 10 L BUN 103 H Creatinine 4.3 H Glucose 163 H POC Glucose 173 H 167 H Lactic Acid Calcium 6.5 L Phosphorus Magnesium Direct Bilirubin ALT Alkaline Phosphatase Troponin T C-Reactive Protein Total Protein Albumin Triglycerides Cholesterol LDL Cholesterol Direct HDL Cholesterol Urine WBC (Auto) Urine Creatinine Urine Total Protein Vancomycin Trough Rheumatoid Factor Complement C4 Miscellaneous Test Crossmatch 09/24/16 09/24/16 09/24/16 20:15 21:02 23:48 WBC RBC Hgb Hct MCV MCH MCHC RDW Plt Count Lymph % (Auto) Dare % (Auto) Lymph # Dare # Seg Neutrophils % Seg Neuts % (Manual) Lymphocytes % (Manual) Monocytes % (Manual) Eosinophils % (Manual) Basophils % (Manual) Nucleated RBC % Seg Neutrophils # Seg Neutrophils # Man Lymphocytes # (Manual) Monocytes # (Manual) Eosinophils # (Manual) PT INR Fibrinogen dRVVT Confirm Interp Factor V Activity POC ABG pH 7.288 L POC ABG pCO2 30.2 L 21.5 L POC ABG pO2 32 L 39 L Sodium Potassium Chloride Carbon Dioxide BUN Creatinine Glucose POC Glucose 109 H Lactic Acid Calcium Phosphorus Magnesium Direct Bilirubin ALT Alkaline Phosphatase Troponin T C-Reactive Protein Total Protein Albumin Triglycerides Cholesterol LDL Cholesterol Direct HDL Cholesterol Urine WBC (Auto) Urine Creatinine Urine Total Protein Vancomycin Trough Rheumatoid Factor Complement C4 Miscellaneous Test Crossmatch 09/25/16 09/25/16 09/25/16 04:20 04:20 04:20 WBC RBC 2.58 L Hgb 7.0 L Hct 21.0 L MCV MCH 27 L MCHC RDW 23.8 H Plt Count Lymph % (Auto) Dare % (Auto) Lymph # Dare # Seg Neutrophils % Seg Neuts % (Manual) Lymphocytes % (Manual) 12.0 L Monocytes % (Manual) Eosinophils % (Manual) 7.0 H Basophils % (Manual) 2.0 H Nucleated RBC % Seg Neutrophils # Seg Neutrophils # Man Lymphocytes # (Manual) 0.9 L Monocytes # (Manual) Eosinophils # (Manual) 0.5 H PT INR Fibrinogen dRVVT Confirm Interp Factor V Activity POC ABG pH POC ABG pCO2 POC ABG pO2 Sodium Potassium Chloride Carbon Dioxide 15 L BUN 72 H Creatinine 3.8 H Glucose POC Glucose Lactic Acid Calcium 6.0 L Phosphorus 4.60 H Magnesium 1.60 L Direct Bilirubin ALT Alkaline Phosphatase Troponin T C-Reactive Protein Total Protein Albumin Triglycerides Cholesterol LDL Cholesterol Direct HDL Cholesterol Urine WBC (Auto) Urine Creatinine Urine Total Protein Vancomycin Trough Rheumatoid Factor Complement C4 Miscellaneous Test Crossmatch 09/25/16 09/25/16 09/25/16 04:57 08:02 10:30 WBC RBC Hgb Hct MCV MCH MCHC RDW Plt Count Lymph % (Auto) Dare % (Auto) Lymph # Dare # Seg Neutrophils % Seg Neuts % (Manual) Lymphocytes % (Manual) Monocytes % (Manual) Eosinophils % (Manual) Basophils % (Manual) Nucleated RBC % Seg Neutrophils # Seg Neutrophils # Man Lymphocytes # (Manual) Monocytes # (Manual) Eosinophils # (Manual) PT INR Fibrinogen dRVVT Confirm Interp Factor V Activity POC ABG pH POC ABG pCO2 24.7 L POC ABG pO2 152 H Sodium Potassium Chloride Carbon Dioxide BUN Creatinine Glucose POC Glucose 113 H Lactic Acid Calcium Phosphorus Magnesium Direct Bilirubin ALT Alkaline Phosphatase Troponin T C-Reactive Protein Total Protein Albumin Triglycerides Cholesterol LDL Cholesterol Direct HDL Cholesterol Urine WBC (Auto) Urine Creatinine Urine Total Protein Vancomycin Trough Rheumatoid Factor Complement C4 Miscellaneous Test Crossmatch See Detail 09/25/16 09/25/16 09/25/16 12:05 17:44 23:47 WBC RBC Hgb Hct MCV MCH MCHC RDW Plt Count Lymph % (Auto) Dare % (Auto) Lymph # Dare # Seg Neutrophils % Seg Neuts % (Manual) Lymphocytes % (Manual) Monocytes % (Manual) Eosinophils % (Manual) Basophils % (Manual) Nucleated RBC % Seg Neutrophils # Seg Neutrophils # Man Lymphocytes # (Manual) Monocytes # (Manual) Eosinophils # (Manual) PT INR Fibrinogen dRVVT Confirm Interp Factor V Activity POC ABG pH POC ABG pCO2 POC ABG pO2 Sodium Potassium Chloride Carbon Dioxide BUN Creatinine Glucose POC Glucose 117 H 119 H 150 H Lactic Acid Calcium Phosphorus Magnesium Direct Bilirubin ALT Alkaline Phosphatase Troponin T C-Reactive Protein Total Protein Albumin Triglycerides Cholesterol LDL Cholesterol Direct HDL Cholesterol Urine WBC (Auto) Urine Creatinine Urine Total Protein Vancomycin Trough Rheumatoid Factor Complement C4 Miscellaneous Test Crossmatch 09/26/16 09/26/16 09/26/16 04:25 04:25 04:25 WBC RBC 2.65 L Hgb 7.4 L Hct 21.6 L MCV MCH MCHC RDW 22.5 H Plt Count Lymph % (Auto) Dare % (Auto) Lymph # Dare # Seg Neutrophils % Seg Neuts % (Manual) Lymphocytes % (Manual) 6.0 L Monocytes % (Manual) Eosinophils % (Manual) 11.0 H Basophils % (Manual) Nucleated RBC % Seg Neutrophils # Seg Neutrophils # Man Lymphocytes # (Manual) 0.4 L Monocytes # (Manual) Eosinophils # (Manual) 0.6 H PT INR Fibrinogen dRVVT Confirm Interp Factor V Activity POC ABG pH POC ABG pCO2 POC ABG pO2 Sodium Potassium Chloride 97.0 L Carbon Dioxide 19 L BUN 43 H Creatinine 2.6 H Glucose 130 H POC Glucose Lactic Acid 4.40 H* Calcium 6.7 L Phosphorus Magnesium Direct Bilirubin ALT Alkaline Phosphatase Troponin T C-Reactive Protein Total Protein Albumin Triglycerides Cholesterol LDL Cholesterol Direct HDL Cholesterol Urine WBC (Auto) Urine Creatinine Urine Total Protein Vancomycin Trough Rheumatoid Factor Complement C4 Miscellaneous Test Crossmatch 09/26/16 09/26/16 09/26/16 05:20 11:44 12:12 WBC RBC Hgb Hct MCV MCH MCHC RDW Plt Count Lymph % (Auto) Dare % (Auto) Lymph # Dare # Seg Neutrophils % Seg Neuts % (Manual) Lymphocytes % (Manual) Monocytes % (Manual) Eosinophils % (Manual) Basophils % (Manual) Nucleated RBC % Seg Neutrophils # Seg Neutrophils # Man Lymphocytes # (Manual) Monocytes # (Manual) Eosinophils # (Manual) PT INR Fibrinogen dRVVT Confirm Interp Factor V Activity POC ABG pH POC ABG pCO2 27.0 L POC ABG pO2 69 L Sodium Potassium Chloride Carbon Dioxide BUN Creatinine Glucose POC Glucose 121 H 128 H Lactic Acid Calcium Phosphorus Magnesium Direct Bilirubin ALT Alkaline Phosphatase Troponin T C-Reactive Protein Total Protein Albumin Triglycerides Cholesterol LDL Cholesterol Direct HDL Cholesterol Urine WBC (Auto) Urine Creatinine Urine Total Protein Vancomycin Trough Rheumatoid Factor Complement C4 Miscellaneous Test Crossmatch 09/26/16 09/26/16 09/27/16 18:31 23:40 08:20 WBC RBC Hgb Hct MCV MCH MCHC RDW Plt Count Lymph % (Auto) Dare % (Auto) Lymph # Dare # Seg Neutrophils % Seg Neuts % (Manual) Lymphocytes % (Manual) Monocytes % (Manual) Eosinophils % (Manual) Basophils % (Manual) Nucleated RBC % Seg Neutrophils # Seg Neutrophils # Man Lymphocytes # (Manual) Monocytes # (Manual) Eosinophils # (Manual) PT INR Fibrinogen dRVVT Confirm Interp Factor V Activity POC ABG pH POC ABG pCO2 POC ABG pO2 Sodium Potassium Chloride Carbon Dioxide BUN Creatinine Glucose POC Glucose 120 H 133 H Lactic Acid 4.10 H* Calcium Phosphorus Magnesium Direct Bilirubin ALT Alkaline Phosphatase Troponin T C-Reactive Protein Total Protein Albumin Triglycerides Cholesterol LDL Cholesterol Direct HDL Cholesterol Urine WBC (Auto) Urine Creatinine Urine Total Protein Vancomycin Trough Rheumatoid Factor Complement C4 Miscellaneous Test Crossmatch 09/27/16 09/27/16 09/27/16 11:23 15:00 18:15 WBC RBC Hgb Hct MCV MCH MCHC RDW Plt Count Lymph % (Auto) Dare % (Auto) Lymph # Dare # Seg Neutrophils % Seg Neuts % (Manual) Lymphocytes % (Manual) Monocytes % (Manual) Eosinophils % (Manual) Basophils % (Manual) Nucleated RBC % Seg Neutrophils # Seg Neutrophils # Man Lymphocytes # (Manual) Monocytes # (Manual) Eosinophils # (Manual) PT INR Fibrinogen dRVVT Confirm Interp Factor V Activity POC ABG pH 7.459 H POC ABG pCO2 27.1 L POC ABG pO2 140 H Sodium Potassium Chloride Carbon Dioxide BUN Creatinine Glucose POC Glucose 114 H 127 H Lactic Acid Calcium Phosphorus Magnesium Direct Bilirubin ALT Alkaline Phosphatase Troponin T C-Reactive Protein Total Protein Albumin Triglycerides Cholesterol LDL Cholesterol Direct HDL Cholesterol Urine WBC (Auto) Urine Creatinine Urine Total Protein Vancomycin Trough Rheumatoid Factor Complement C4 Miscellaneous Test Crossmatch 09/27/16 09/27/16 09/28/16 Unknown Unknown 03:45 WBC RBC 2.49 L Hgb 6.8 L Hct 20.7 L MCV MCH 27 L MCHC RDW 22.1 H Plt Count Lymph % (Auto) Dare % (Auto) Lymph # Dare # Seg Neutrophils % Seg Neuts % (Manual) 32.0 L Lymphocytes % (Manual) 12.0 L Monocytes % (Manual) 11.0 H Eosinophils % (Manual) 10.0 H Basophils % (Manual) Nucleated RBC % Seg Neutrophils # Seg Neutrophils # Man Lymphocytes # (Manual) 1.0 L Monocytes # (Manual) 0.9 H Eosinophils # (Manual) 0.8 H PT INR Fibrinogen dRVVT Confirm Interp Factor V Activity POC ABG pH POC ABG pCO2 POC ABG pO2 Sodium 135 L 135 L Potassium 3.5 L Chloride 93.6 L 94.4 L Carbon Dioxide 17 L 21 L BUN 45 H 28 H Creatinine 3.3 H 2.5 H Glucose 106 H POC Glucose Lactic Acid Calcium 7.3 L 7.1 L Phosphorus Magnesium Direct Bilirubin ALT Alkaline Phosphatase Troponin T C-Reactive Protein Total Protein Albumin Triglycerides Cholesterol LDL Cholesterol Direct HDL Cholesterol Urine WBC (Auto) Urine Creatinine Urine Total Protein Vancomycin Trough Rheumatoid Factor Complement C4 Miscellaneous Test Crossmatch 09/28/16 09/28/16 09/28/16 03:45 07:25 11:58 WBC 13.3 H RBC 3.01 L Hgb 8.4 L Hct 25.0 L MCV MCH MCHC RDW 20.5 H Plt Count 128 L Lymph % (Auto) Dare % (Auto) Lymph # Dare # Seg Neutrophils % Seg Neuts % (Manual) Lymphocytes % (Manual) 7.0 L Monocytes % (Manual) Eosinophils % (Manual) 6.0 H Basophils % (Manual) Nucleated RBC % Seg Neutrophils # Seg Neutrophils # Man Lymphocytes # (Manual) 0.9 L Monocytes # (Manual) Eosinophils # (Manual) 0.8 H PT INR Fibrinogen dRVVT Confirm Interp Factor V Activity POC ABG pH POC ABG pCO2 POC ABG pO2 Sodium Potassium Chloride Carbon Dioxide BUN Creatinine Glucose POC Glucose 121 H Lactic Acid 4.50 H* Calcium Phosphorus Magnesium Direct Bilirubin ALT Alkaline Phosphatase Troponin T C-Reactive Protein Total Protein Albumin Triglycerides Cholesterol LDL Cholesterol Direct HDL Cholesterol Urine WBC (Auto) Urine Creatinine Urine Total Protein Vancomycin Trough Rheumatoid Factor Complement C4 Miscellaneous Test Crossmatch 09/29/16 09/29/16 09/29/16 06:45 06:45 06:45 WBC 14.9 H RBC 2.74 L Hgb 7.6 L Hct 23.2 L MCV MCH MCHC RDW 20.5 H Plt Count 81 L Lymph % (Auto) Dare % (Auto) Lymph # Dare # Seg Neutrophils % Seg Neuts % (Manual) 81.0 H Lymphocytes % (Manual) 4.0 L Monocytes % (Manual) Eosinophils % (Manual) Basophils % (Manual) Nucleated RBC % Seg Neutrophils # Seg Neutrophils # Man 12.1 H Lymphocytes # (Manual) 0.6 L Monocytes # (Manual) Eosinophils # (Manual) PT INR Fibrinogen dRVVT Confirm Interp Factor V Activity POC ABG pH POC ABG pCO2 POC ABG pO2 Sodium 133 L Potassium 3.4 L Chloride 92.5 L Carbon Dioxide 21 L BUN 33 H Creatinine 3.0 H Glucose POC Glucose Lactic Acid Calcium 6.6 L Phosphorus Magnesium 1.40 L Direct Bilirubin 0.9 H ALT Alkaline Phosphatase Troponin T C-Reactive Protein Total Protein 4.3 L Albumin 1.3 L Triglycerides Cholesterol LDL Cholesterol Direct HDL Cholesterol Urine WBC (Auto) Urine Creatinine Urine Total Protein Vancomycin Trough Rheumatoid Factor Complement C4 Miscellaneous Test Crossmatch 09/29/16 09/29/16 09/30/16 17:52 20:12 00:07 WBC RBC Hgb Hct MCV MCH MCHC RDW Plt Count Lymph % (Auto) Dare % (Auto) Lymph # Dare # Seg Neutrophils % Seg Neuts % (Manual) Lymphocytes % (Manual) Monocytes % (Manual) Eosinophils % (Manual) Basophils % (Manual) Nucleated RBC % Seg Neutrophils # Seg Neutrophils # Man Lymphocytes # (Manual) Monocytes # (Manual) Eosinophils # (Manual) PT INR Fibrinogen dRVVT Confirm Interp Factor V Activity POC ABG pH POC ABG pCO2 POC ABG pO2 Sodium Potassium Chloride Carbon Dioxide BUN Creatinine Glucose POC Glucose 50 L 51 L Lactic Acid Calcium Phosphorus Magnesium Direct Bilirubin ALT Alkaline Phosphatase Troponin T 0.204 H* C-Reactive Protein Total Protein Albumin Triglycerides Cholesterol 31 L LDL Cholesterol Direct 4 L HDL Cholesterol 3 L Urine WBC (Auto) Urine Creatinine Urine Total Protein Vancomycin Trough Rheumatoid Factor Complement C4 Miscellaneous Test Crossmatch 09/30/16 09/30/16 09/30/16 01:30 05:15 06:10 WBC RBC Hgb Hct MCV MCH MCHC RDW Plt Count Lymph % (Auto) Dare % (Auto) Lymph # Dare # Seg Neutrophils % Seg Neuts % (Manual) Lymphocytes % (Manual) Monocytes % (Manual) Eosinophils % (Manual) Basophils % (Manual) Nucleated RBC % Seg Neutrophils # Seg Neutrophils # Man Lymphocytes # (Manual) Monocytes # (Manual) Eosinophils # (Manual) PT INR Fibrinogen dRVVT Confirm Interp Factor V Activity POC ABG pH POC ABG pCO2 POC ABG pO2 Sodium 133 L Potassium 3.2 L Chloride 93.2 L Carbon Dioxide 19 L BUN 36 H Creatinine 3.2 H Glucose 104 H POC Glucose 167 H 146 H Lactic Acid Calcium 6.4 L Phosphorus Magnesium 1.60 L Direct Bilirubin ALT Alkaline Phosphatase Troponin T C-Reactive Protein Total Protein Albumin Triglycerides Cholesterol LDL Cholesterol Direct HDL Cholesterol Urine WBC (Auto) Urine Creatinine Urine Total Protein Vancomycin Trough Rheumatoid Factor Complement C4 Miscellaneous Test Crossmatch 09/30/16 09/30/16 09/30/16 11:26 13:39 18:38 WBC RBC Hgb Hct MCV MCH MCHC RDW Plt Count Lymph % (Auto) Dare % (Auto) Lymph # Dare # Seg Neutrophils % Seg Neuts % (Manual) Lymphocytes % (Manual) Monocytes % (Manual) Eosinophils % (Manual) Basophils % (Manual) Nucleated RBC % Seg Neutrophils # Seg Neutrophils # Man Lymphocytes # (Manual) Monocytes # (Manual) Eosinophils # (Manual) PT INR Fibrinogen dRVVT Confirm Interp Factor V Activity POC ABG pH 7.479 H POC ABG pCO2 29.8 L POC ABG pO2 117 H Sodium Potassium Chloride Carbon Dioxide BUN Creatinine Glucose POC Glucose 140 H 122 H Lactic Acid Calcium Phosphorus Magnesium Direct Bilirubin ALT Alkaline Phosphatase Troponin T C-Reactive Protein Total Protein Albumin Triglycerides Cholesterol LDL Cholesterol Direct HDL Cholesterol Urine WBC (Auto) Urine Creatinine Urine Total Protein Vancomycin Trough Rheumatoid Factor Complement C4 Miscellaneous Test Crossmatch 10/01/16 10/01/16 10/01/16 06:00 06:00 12:37 WBC 12.6 H RBC 2.75 L Hgb 7.3 L Hct 23.3 L MCV MCH 27 L MCHC RDW 20.6 H Plt Count 72 L Lymph % (Auto) Dare % (Auto) Lymph # Dare # Seg Neutrophils % Seg Neuts % (Manual) 31.0 L Lymphocytes % (Manual) 8.0 L Monocytes % (Manual) Eosinophils % (Manual) Basophils % (Manual) Nucleated RBC % 3.0 H Seg Neutrophils # Seg Neutrophils # Man Lymphocytes # (Manual) 1.0 L Monocytes # (Manual) Eosinophils # (Manual) PT INR Fibrinogen dRVVT Confirm Interp Factor V Activity POC ABG pH POC ABG pCO2 POC ABG pO2 Sodium 127 L Potassium Chloride 86.8 L Carbon Dioxide 20 L BUN 42 H Creatinine 3.5 H Glucose POC Glucose 65 L Lactic Acid Calcium 7.0 L Phosphorus Magnesium Direct Bilirubin ALT Alkaline Phosphatase Troponin T C-Reactive Protein Total Protein Albumin Triglycerides Cholesterol LDL Cholesterol Direct HDL Cholesterol Urine WBC (Auto) Urine Creatinine Urine Total Protein Vancomycin Trough Rheumatoid Factor Complement C4 Miscellaneous Test Crossmatch 10/01/16 10/01/16 10/02/16 17:39 23:32 00:59 WBC RBC Hgb Hct MCV MCH MCHC RDW Plt Count Lymph % (Auto) Dare % (Auto) Lymph # Dare # Seg Neutrophils % Seg Neuts % (Manual) Lymphocytes % (Manual) Monocytes % (Manual) Eosinophils % (Manual) Basophils % (Manual) Nucleated RBC % Seg Neutrophils # Seg Neutrophils # Man Lymphocytes # (Manual) Monocytes # (Manual) Eosinophils # (Manual) PT INR Fibrinogen dRVVT Confirm Interp Factor V Activity POC ABG pH POC ABG pCO2 POC ABG pO2 Sodium Potassium Chloride Carbon Dioxide BUN Creatinine Glucose POC Glucose 107 H 52 L 145 H Lactic Acid Calcium Phosphorus Magnesium Direct Bilirubin ALT Alkaline Phosphatase Troponin T C-Reactive Protein Total Protein Albumin Triglycerides Cholesterol LDL Cholesterol Direct HDL Cholesterol Urine WBC (Auto) Urine Creatinine Urine Total Protein Vancomycin Trough Rheumatoid Factor Complement C4 Miscellaneous Test Crossmatch 10/02/16 10/02/16 10/02/16 10:30 10:50 10:50 WBC 14.7 H RBC 2.76 L Hgb 7.4 L Hct 23.6 L MCV MCH 27 L MCHC RDW 20.2 H Plt Count 79 L Lymph % (Auto) Dare % (Auto) Lymph # Dare # Seg Neutrophils % Seg Neuts % (Manual) 86.0 H Lymphocytes % (Manual) 6.0 L Monocytes % (Manual) Eosinophils % (Manual) Basophils % (Manual) Nucleated RBC % Seg Neutrophils # Seg Neutrophils # Man 12.6 H Lymphocytes # (Manual) 0.9 L Monocytes # (Manual) Eosinophils # (Manual) PT INR Fibrinogen dRVVT Confirm Interp Factor V Activity POC ABG pH 7.486 H POC ABG pCO2 30.1 L POC ABG pO2 108 H Sodium 131 L Potassium 3.4 L Chloride 89.9 L Carbon Dioxide BUN 26 H Creatinine 2.6 H Glucose POC Glucose Lactic Acid Calcium 7.0 L Phosphorus Magnesium Direct Bilirubin ALT Alkaline Phosphatase Troponin T C-Reactive Protein Total Protein Albumin Triglycerides Cholesterol LDL Cholesterol Direct HDL Cholesterol Urine WBC (Auto) Urine Creatinine Urine Total Protein Vancomycin Trough Rheumatoid Factor Complement C4 Miscellaneous Test Crossmatch 10/02/16 10/03/16 10/03/16 23:45 00:45 05:10 WBC 12.9 H RBC 2.77 L Hgb 7.6 L Hct 23.7 L MCV MCH 27 L MCHC RDW 19.7 H Plt Count 89 L Lymph % (Auto) Dare % (Auto) Lymph # Dare # Seg Neutrophils % Seg Neuts % (Manual) Lymphocytes % (Manual) 8.0 L Monocytes % (Manual) Eosinophils % (Manual) Basophils % (Manual) Nucleated RBC % Seg Neutrophils # 11.9 H Seg Neutrophils # Man Lymphocytes # (Manual) 1.0 L Monocytes # (Manual) Eosinophils # (Manual) PT INR Fibrinogen dRVVT Confirm Interp Factor V Activity POC ABG pH POC ABG pCO2 POC ABG pO2 Sodium Potassium Chloride Carbon Dioxide BUN Creatinine Glucose POC Glucose 55 L 199 H Lactic Acid Calcium Phosphorus Magnesium Direct Bilirubin ALT Alkaline Phosphatase Troponin T C-Reactive Protein Total Protein Albumin Triglycerides Cholesterol LDL Cholesterol Direct HDL Cholesterol Urine WBC (Auto) Urine Creatinine Urine Total Protein Vancomycin Trough Rheumatoid Factor Complement C4 Miscellaneous Test Crossmatch 10/03/16 10/03/16 10/03/16 05:10 12:14 13:18 WBC RBC Hgb Hct MCV MCH MCHC RDW Plt Count Lymph % (Auto) Dare % (Auto) Lymph # Dare # Seg Neutrophils % Seg Neuts % (Manual) Lymphocytes % (Manual) Monocytes % (Manual) Eosinophils % (Manual) Basophils % (Manual) Nucleated RBC % Seg Neutrophils # Seg Neutrophils # Man Lymphocytes # (Manual) Monocytes # (Manual) Eosinophils # (Manual) PT INR Fibrinogen dRVVT Confirm Interp Factor V Activity POC ABG pH POC ABG pCO2 POC ABG pO2 Sodium 129 L Potassium 3.3 L Chloride 88.8 L Carbon Dioxide 20 L BUN 29 H Creatinine 2.8 H Glucose POC Glucose 68 L 127 H Lactic Acid Calcium 7.2 L Phosphorus Magnesium Direct Bilirubin ALT Alkaline Phosphatase Troponin T C-Reactive Protein Total Protein Albumin Triglycerides Cholesterol LDL Cholesterol Direct HDL Cholesterol Urine WBC (Auto) Urine Creatinine Urine Total Protein Vancomycin Trough Rheumatoid Factor Complement C4 Miscellaneous Test Crossmatch 10/03/16 10/03/16 10/03/16 14:42 18:21 19:09 WBC RBC Hgb Hct MCV MCH MCHC RDW Plt Count Lymph % (Auto) Dare % (Auto) Lymph # Dare # Seg Neutrophils % Seg Neuts % (Manual) Lymphocytes % (Manual) Monocytes % (Manual) Eosinophils % (Manual) Basophils % (Manual) Nucleated RBC % Seg Neutrophils # Seg Neutrophils # Man Lymphocytes # (Manual) Monocytes # (Manual) Eosinophils # (Manual) PT INR Fibrinogen dRVVT Confirm Interp Factor V Activity POC ABG pH 7.499 H POC ABG pCO2 28.4 L POC ABG pO2 44 L Sodium Potassium Chloride Carbon Dioxide BUN Creatinine Glucose POC Glucose 64 L 205 H Lactic Acid Calcium Phosphorus Magnesium Direct Bilirubin ALT Alkaline Phosphatase Troponin T C-Reactive Protein Total Protein Albumin Triglycerides Cholesterol LDL Cholesterol Direct HDL Cholesterol Urine WBC (Auto) Urine Creatinine Urine Total Protein Vancomycin Trough Rheumatoid Factor Complement C4 Miscellaneous Test Crossmatch 10/03/16 10/04/16 10/04/16 23:33 04:18 06:30 WBC RBC 2.54 L Hgb 7.1 L Hct 21.7 L MCV MCH MCHC RDW 19.5 H Plt Count 76 L Lymph % (Auto) Dare % (Auto) Lymph # Dare # Seg Neutrophils % Seg Neuts % (Manual) 88.0 H Lymphocytes % (Manual) 6.0 L Monocytes % (Manual) Eosinophils % (Manual) Basophils % (Manual) Nucleated RBC % Seg Neutrophils # Seg Neutrophils # Man 8.8 H Lymphocytes # (Manual) 0.6 L Monocytes # (Manual) Eosinophils # (Manual) PT INR Fibrinogen dRVVT Confirm Interp Factor V Activity POC ABG pH 7.461 H POC ABG pCO2 33.6 L POC ABG pO2 211 H Sodium Potassium Chloride Carbon Dioxide BUN Creatinine Glucose POC Glucose 136 H Lactic Acid Calcium Phosphorus Magnesium Direct Bilirubin ALT Alkaline Phosphatase Troponin T C-Reactive Protein Total Protein Albumin Triglycerides Cholesterol LDL Cholesterol Direct HDL Cholesterol Urine WBC (Auto) Urine Creatinine Urine Total Protein Vancomycin Trough Rheumatoid Factor Complement C4 Miscellaneous Test Crossmatch 10/04/16 10/04/16 10/04/16 06:30 11:45 17:54 WBC RBC Hgb Hct MCV MCH MCHC RDW Plt Count Lymph % (Auto) Dare % (Auto) Lymph # Dare # Seg Neutrophils % Seg Neuts % (Manual) Lymphocytes % (Manual) Monocytes % (Manual) Eosinophils % (Manual) Basophils % (Manual) Nucleated RBC % Seg Neutrophils # Seg Neutrophils # Man Lymphocytes # (Manual) Monocytes # (Manual) Eosinophils # (Manual) PT INR Fibrinogen dRVVT Confirm Interp Factor V Activity POC ABG pH POC ABG pCO2 POC ABG pO2 Sodium 128 L Potassium Chloride 87.4 L Carbon Dioxide 20 L BUN 34 H Creatinine 2.9 H Glucose 127 H POC Glucose 158 H 160 H Lactic Acid Calcium 7.4 L Phosphorus Magnesium Direct Bilirubin ALT Alkaline Phosphatase Troponin T C-Reactive Protein Total Protein Albumin Triglycerides Cholesterol LDL Cholesterol Direct HDL Cholesterol Urine WBC (Auto) Urine Creatinine Urine Total Protein Vancomycin Trough Rheumatoid Factor Complement C4 Miscellaneous Test Crossmatch 10/04/16 10/05/16 10/05/16 23:25 04:30 05:00 WBC RBC 2.64 L Hgb 7.5 L Hct 22.6 L MCV MCH MCHC RDW 19.3 H Plt Count 80 L Lymph % (Auto) Dare % (Auto) Lymph # Dare # Seg Neutrophils % Seg Neuts % (Manual) Lymphocytes % (Manual) 12.0 L Monocytes % (Manual) Eosinophils % (Manual) Basophils % (Manual) Nucleated RBC % Seg Neutrophils # Seg Neutrophils # Man Lymphocytes # (Manual) Monocytes # (Manual) Eosinophils # (Manual) PT INR Fibrinogen dRVVT Confirm Interp Factor V Activity POC ABG pH 7.475 H POC ABG pCO2 33.3 L POC ABG pO2 140 H Sodium Potassium Chloride Carbon Dioxide BUN Creatinine Glucose POC Glucose 141 H Lactic Acid Calcium Phosphorus Magnesium Direct Bilirubin ALT Alkaline Phosphatase Troponin T C-Reactive Protein Total Protein Albumin Triglycerides Cholesterol LDL Cholesterol Direct HDL Cholesterol Urine WBC (Auto) Urine Creatinine Urine Total Protein Vancomycin Trough Rheumatoid Factor Complement C4 Miscellaneous Test Crossmatch 10/05/16 10/05/16 10/05/16 05:00 05:09 12:58 WBC RBC Hgb Hct MCV MCH MCHC RDW Plt Count Lymph % (Auto) Dare % (Auto) Lymph # Dare # Seg Neutrophils % Seg Neuts % (Manual) Lymphocytes % (Manual) Monocytes % (Manual) Eosinophils % (Manual) Basophils % (Manual) Nucleated RBC % Seg Neutrophils # Seg Neutrophils # Man Lymphocytes # (Manual) Monocytes # (Manual) Eosinophils # (Manual) PT INR Fibrinogen dRVVT Confirm Interp Factor V Activity POC ABG pH POC ABG pCO2 POC ABG pO2 Sodium 131 L Potassium Chloride 94.0 L Carbon Dioxide 20 L BUN 22 H Creatinine 2.0 H Glucose 123 H POC Glucose 166 H 179 H Lactic Acid Calcium 7.7 L Phosphorus 2.20 L D Magnesium Direct Bilirubin ALT Alkaline Phosphatase Troponin T C-Reactive Protein Total Protein Albumin Triglycerides Cholesterol LDL Cholesterol Direct HDL Cholesterol Urine WBC (Auto) Urine Creatinine Urine Total Protein Vancomycin Trough Rheumatoid Factor Complement C4 Miscellaneous Test Crossmatch 10/05/16 10/05/16 10/05/16 15:50 18:53 23:12 WBC RBC Hgb Hct MCV MCH MCHC RDW Plt Count Lymph % (Auto) Dare % (Auto) Lymph # Dare # Seg Neutrophils % Seg Neuts % (Manual) Lymphocytes % (Manual) Monocytes % (Manual) Eosinophils % (Manual) Basophils % (Manual) Nucleated RBC % Seg Neutrophils # Seg Neutrophils # Man Lymphocytes # (Manual) Monocytes # (Manual) Eosinophils # (Manual) PT INR Fibrinogen dRVVT Confirm Interp Factor V Activity POC ABG pH POC ABG pCO2 POC ABG pO2 Sodium Potassium Chloride Carbon Dioxide BUN Creatinine Glucose POC Glucose 150 H 164 H Lactic Acid Calcium Phosphorus Magnesium Direct Bilirubin ALT Alkaline Phosphatase Troponin T C-Reactive Protein Total Protein Albumin Triglycerides Cholesterol LDL Cholesterol Direct HDL Cholesterol Urine WBC (Auto) Urine Creatinine Urine Total Protein Vancomycin Trough Rheumatoid Factor Complement C4 Miscellaneous Test Crossmatch See Detail 10/06/16 10/06/16 10/06/16 03:50 03:50 04:53 WBC RBC 3.00 L Hgb 8.6 L Hct 25.8 L MCV MCH MCHC RDW 17.9 H Plt Count 65 L Lymph % (Auto) Dare % (Auto) Lymph # Dare # Seg Neutrophils % Seg Neuts % (Manual) 30.0 L Lymphocytes % (Manual) 5.0 L Monocytes % (Manual) Eosinophils % (Manual) Basophils % (Manual) Nucleated RBC % Seg Neutrophils # Seg Neutrophils # Man Lymphocytes # (Manual) 0.4 L Monocytes # (Manual) Eosinophils # (Manual) PT INR Fibrinogen dRVVT Confirm Interp Factor V Activity POC ABG pH 7.310 L POC ABG pCO2 49.0 H POC ABG pO2 Sodium 133 L Potassium Chloride 95.9 L Carbon Dioxide BUN 26 H Creatinine 2.0 H Glucose 116 H POC Glucose Lactic Acid Calcium 7.8 L Phosphorus Magnesium Direct Bilirubin ALT Alkaline Phosphatase Troponin T C-Reactive Protein Total Protein Albumin Triglycerides Cholesterol LDL Cholesterol Direct HDL Cholesterol Urine WBC (Auto) Urine Creatinine Urine Total Protein Vancomycin Trough Rheumatoid Factor Complement C4 Miscellaneous Test Crossmatch 10/06/16 10/06/16 10/06/16 05:23 11:52 18:34 WBC RBC Hgb Hct MCV MCH MCHC RDW Plt Count Lymph % (Auto) Dare % (Auto) Lymph # Dare # Seg Neutrophils % Seg Neuts % (Manual) Lymphocytes % (Manual) Monocytes % (Manual) Eosinophils % (Manual) Basophils % (Manual) Nucleated RBC % Seg Neutrophils # Seg Neutrophils # Man Lymphocytes # (Manual) Monocytes # (Manual) Eosinophils # (Manual) PT INR Fibrinogen dRVVT Confirm Interp Factor V Activity POC ABG pH POC ABG pCO2 POC ABG pO2 Sodium Potassium Chloride Carbon Dioxide BUN Creatinine Glucose POC Glucose 126 H 116 H 129 H Lactic Acid Calcium Phosphorus Magnesium Direct Bilirubin ALT Alkaline Phosphatase Troponin T C-Reactive Protein Total Protein Albumin Triglycerides Cholesterol LDL Cholesterol Direct HDL Cholesterol Urine WBC (Auto) Urine Creatinine Urine Total Protein Vancomycin Trough Rheumatoid Factor Complement C4 Miscellaneous Test Crossmatch 10/07/16 10/07/16 10/07/16 03:45 05:00 10:00 WBC 17.0 H RBC 2.68 L Hgb 7.3 L Hct 25.3 L MCV MCH 27 L MCHC 29 L RDW 19.6 H Plt Count 74 L Lymph % (Auto) Dare % (Auto) Lymph # Dare # Seg Neutrophils % Seg Neuts % (Manual) Lymphocytes % (Manual) 12.0 L Monocytes % (Manual) Eosinophils % (Manual) Basophils % (Manual) Nucleated RBC % 4.0 H Seg Neutrophils # Seg Neutrophils # Man 10.7 H Lymphocytes # (Manual) Monocytes # (Manual) Eosinophils # (Manual) PT INR Fibrinogen dRVVT Confirm Interp Factor V Activity POC ABG pH POC ABG pCO2 POC ABG pO2 Sodium 130 L Potassium 3.2 L Chloride 93.9 L Carbon Dioxide 20 L BUN 44 H Creatinine 2.7 H Glucose 129 H POC Glucose Lactic Acid Calcium 7.4 L Phosphorus Magnesium Direct Bilirubin ALT 6 L Alkaline Phosphatase 195 H Troponin T C-Reactive Protein Total Protein 4.9 L Albumin 1.0 L Triglycerides Cholesterol LDL Cholesterol Direct HDL Cholesterol Urine WBC (Auto) Urine Creatinine Urine Total Protein Vancomycin Trough Rheumatoid Factor Complement C4 Miscellaneous Test Flexitest 1 H Crossmatch 10/07/16 10/07/16 10/07/16 10:00 11:24 18:10 WBC RBC Hgb Hct MCV MCH MCHC RDW Plt Count Lymph % (Auto) Dare % (Auto) Lymph # Dare # Seg Neutrophils % Seg Neuts % (Manual) Lymphocytes % (Manual) Monocytes % (Manual) Eosinophils % (Manual) Basophils % (Manual) Nucleated RBC % Seg Neutrophils # Seg Neutrophils # Man Lymphocytes # (Manual) Monocytes # (Manual) Eosinophils # (Manual) PT INR Fibrinogen dRVVT Confirm Interp Factor V Activity POC ABG pH POC ABG pCO2 POC ABG pO2 Sodium Potassium Chloride Carbon Dioxide BUN Creatinine Glucose POC Glucose 116 H 130 H Lactic Acid Calcium Phosphorus Magnesium Direct Bilirubin ALT Alkaline Phosphatase Troponin T C-Reactive Protein 19.40 H Total Protein Albumin Triglycerides Cholesterol LDL Cholesterol Direct HDL Cholesterol Urine WBC (Auto) Urine Creatinine Urine Total Protein Vancomycin Trough Rheumatoid Factor Complement C4 Miscellaneous Test Crossmatch 10/07/16 10/08/16 10/08/16 18:30 00:00 04:00 WBC RBC Hgb Hct MCV MCH MCHC RDW Plt Count Lymph % (Auto) Dare % (Auto) Lymph # Dare # Seg Neutrophils % Seg Neuts % (Manual) Lymphocytes % (Manual) Monocytes % (Manual) Eosinophils % (Manual) Basophils % (Manual) Nucleated RBC % Seg Neutrophils # Seg Neutrophils # Man Lymphocytes # (Manual) Monocytes # (Manual) Eosinophils # (Manual) PT INR Fibrinogen dRVVT Confirm Interp Factor V Activity POC ABG pH POC ABG pCO2 POC ABG pO2 Sodium 132 L Potassium 3.3 L Chloride 93.6 L Carbon Dioxide 17 L BUN 59 H Creatinine 2.7 H Glucose 121 H POC Glucose 122 H Lactic Acid Calcium 7.6 L Phosphorus Magnesium Direct Bilirubin ALT Alkaline Phosphatase Troponin T C-Reactive Protein Total Protein Albumin Triglycerides Cholesterol LDL Cholesterol Direct HDL Cholesterol Urine WBC (Auto) > 182.0 H Urine Creatinine Urine Total Protein Vancomycin Trough Rheumatoid Factor Complement C4 Miscellaneous Test Crossmatch 10/08/16 10/08/16 10/08/16 04:30 05:30 11:51 WBC RBC 5.15 H Hgb 14.4 H D Hct 44.5 H D MCV MCH MCHC RDW 19.5 H Plt Count 56 L Lymph % (Auto) Dare % (Auto) Lymph # Dare # Seg Neutrophils % Seg Neuts % (Manual) 24.0 L Lymphocytes % (Manual) 8.0 L Monocytes % (Manual) Eosinophils % (Manual) Basophils % (Manual) Nucleated RBC % 9.0 H Seg Neutrophils # Seg Neutrophils # Man Lymphocytes # (Manual) 0.7 L Monocytes # (Manual) Eosinophils # (Manual) PT INR Fibrinogen dRVVT Confirm Interp Factor V Activity POC ABG pH POC ABG pCO2 POC ABG pO2 Sodium Potassium Chloride Carbon Dioxide BUN Creatinine Glucose POC Glucose 125 H 150 H Lactic Acid Calcium Phosphorus Magnesium Direct Bilirubin ALT Alkaline Phosphatase Troponin T C-Reactive Protein Total Protein Albumin Triglycerides Cholesterol LDL Cholesterol Direct HDL Cholesterol Urine WBC (Auto) Urine Creatinine Urine Total Protein Vancomycin Trough Rheumatoid Factor Complement C4 Miscellaneous Test Crossmatch 10/08/16 10/08/16 10/08/16 12:49 17:07 19:30 WBC RBC Hgb 7.1 L D Hct 22.4 L D MCV MCH MCHC RDW Plt Count Lymph % (Auto) Dare % (Auto) Lymph # Dare # Seg Neutrophils % Seg Neuts % (Manual) Lymphocytes % (Manual) Monocytes % (Manual) Eosinophils % (Manual) Basophils % (Manual) Nucleated RBC % Seg Neutrophils # Seg Neutrophils # Man Lymphocytes # (Manual) Monocytes # (Manual) Eosinophils # (Manual) PT INR Fibrinogen dRVVT Confirm Interp Factor V Activity POC ABG pH POC ABG pCO2 28.2 L POC ABG pO2 111 H Sodium Potassium Chloride Carbon Dioxide BUN Creatinine Glucose POC Glucose 145 H Lactic Acid Calcium Phosphorus Magnesium Direct Bilirubin ALT Alkaline Phosphatase Troponin T C-Reactive Protein Total Protein Albumin Triglycerides Cholesterol LDL Cholesterol Direct HDL Cholesterol Urine WBC (Auto) Urine Creatinine Urine Total Protein Vancomycin Trough Rheumatoid Factor Complement C4 Miscellaneous Test Crossmatch 10/08/16 10/09/16 10/09/16 19:30 03:45 03:45 WBC 12.6 H RBC 2.36 L Hgb 6.7 L Hct 21.1 L MCV MCH MCHC RDW 19.5 H Plt Count 75 L Lymph % (Auto) Dare % (Auto) Lymph # Dare # Seg Neutrophils % Seg Neuts % (Manual) Lymphocytes % (Manual) Monocytes % (Manual) 10.0 H Eosinophils % (Manual) Basophils % (Manual) Nucleated RBC % 3.0 H Seg Neutrophils # Seg Neutrophils # Man Lymphocytes # (Manual) Monocytes # (Manual) 1.3 H Eosinophils # (Manual) PT 18.0 H INR 1.41 H Fibrinogen dRVVT Confirm Interp Factor V Activity POC ABG pH POC ABG pCO2 POC ABG pO2 Sodium 135 L Potassium Chloride Carbon Dioxide 17 L BUN 81 H Creatinine 3.2 H Glucose 109 H POC Glucose Lactic Acid Calcium 7.4 L Phosphorus 4.60 H D Magnesium Direct Bilirubin ALT Alkaline Phosphatase Troponin T C-Reactive Protein Total Protein Albumin Triglycerides Cholesterol LDL Cholesterol Direct HDL Cholesterol Urine WBC (Auto) Urine Creatinine Urine Total Protein Vancomycin Trough Rheumatoid Factor Complement C4 Miscellaneous Test Crossmatch 10/09/16 10/09/16 10/09/16 03:45 05:14 07:20 WBC RBC Hgb Hct MCV MCH MCHC RDW Plt Count Lymph % (Auto) Dare % (Auto) Lymph # Dare # Seg Neutrophils % Seg Neuts % (Manual) Lymphocytes % (Manual) Monocytes % (Manual) Eosinophils % (Manual) Basophils % (Manual) Nucleated RBC % Seg Neutrophils # Seg Neutrophils # Man Lymphocytes # (Manual) Monocytes # (Manual) Eosinophils # (Manual) PT 19.0 H INR 1.51 H Fibrinogen dRVVT Confirm Interp Factor V Activity POC ABG pH POC ABG pCO2 POC ABG pO2 Sodium Potassium Chloride Carbon Dioxide BUN Creatinine Glucose POC Glucose 151 H Lactic Acid Calcium Phosphorus Magnesium Direct Bilirubin ALT Alkaline Phosphatase Troponin T C-Reactive Protein Total Protein Albumin Triglycerides Cholesterol LDL Cholesterol Direct HDL Cholesterol Urine WBC (Auto) Urine Creatinine Urine Total Protein Vancomycin Trough Rheumatoid Factor Complement C4 Miscellaneous Test Crossmatch See Detail 10/09/16 10/09/16 10/09/16 11:46 16:20 16:43 WBC RBC Hgb 7.2 L Hct 22.2 L MCV MCH MCHC RDW Plt Count Lymph % (Auto) Dare % (Auto) Lymph # Dare # Seg Neutrophils % Seg Neuts % (Manual) Lymphocytes % (Manual) Monocytes % (Manual) Eosinophils % (Manual) Basophils % (Manual) Nucleated RBC % Seg Neutrophils # Seg Neutrophils # Man Lymphocytes # (Manual) Monocytes # (Manual) Eosinophils # (Manual) PT INR Fibrinogen dRVVT Confirm Interp Factor V Activity POC ABG pH POC ABG pCO2 POC ABG pO2 Sodium Potassium Chloride Carbon Dioxide BUN Creatinine Glucose POC Glucose 133 H 141 H Lactic Acid Calcium Phosphorus Magnesium Direct Bilirubin ALT Alkaline Phosphatase Troponin T C-Reactive Protein Total Protein Albumin Triglycerides Cholesterol LDL Cholesterol Direct HDL Cholesterol Urine WBC (Auto) Urine Creatinine Urine Total Protein Vancomycin Trough Rheumatoid Factor Complement C4 Miscellaneous Test Crossmatch 10/10/16 10/10/16 10/10/16 05:00 05:00 11:19 WBC 18.5 H RBC 2.19 L Hgb 6.4 L Hct 19.6 L* MCV MCH MCHC RDW 19.3 H Plt Count 93 L Lymph % (Auto) Dare % (Auto) Lymph # Dare # Seg Neutrophils % Seg Neuts % (Manual) Lymphocytes % (Manual) 10.0 L Monocytes % (Manual) Eosinophils % (Manual) Basophils % (Manual) Nucleated RBC % 4.0 H Seg Neutrophils # Seg Neutrophils # Man 11.3 H Lymphocytes # (Manual) Monocytes # (Manual) Eosinophils # (Manual) PT INR Fibrinogen dRVVT Confirm Interp Factor V Activity POC ABG pH POC ABG pCO2 POC ABG pO2 Sodium Potassium 5.7 H D Chloride Carbon Dioxide 16 L BUN 94 H Creatinine 3.1 H Glucose 131 H POC Glucose 153 H Lactic Acid Calcium 8.2 L Phosphorus 5.10 H Magnesium 2.40 H Direct Bilirubin 0.3 H ALT < 5 L Alkaline Phosphatase 319 H Troponin T C-Reactive Protein Total Protein 5.1 L Albumin 1.0 L Triglycerides Cholesterol LDL Cholesterol Direct HDL Cholesterol Urine WBC (Auto) Urine Creatinine Urine Total Protein Vancomycin Trough Rheumatoid Factor Complement C4 Miscellaneous Test Crossmatch 10/10/16 10/10/1617 17:50 23:30 04:15 WBC RBC Hgb Hct MCV MCH MCHC RDW Plt Count Lymph % (Auto) Dare % (Auto) Lymph # Dare # Seg Neutrophils % Seg Neuts % (Manual) Lymphocytes % (Manual) Monocytes % (Manual) Eosinophils % (Manual) Basophils % (Manual) Nucleated RBC % Seg Neutrophils # Seg Neutrophils # Man Lymphocytes # (Manual) Monocytes # (Manual) Eosinophils # (Manual) PT INR Fibrinogen dRVVT Confirm Interp Factor V Activity POC ABG pH POC ABG pCO2 POC ABG pO2 Sodium Potassium Chloride 96.4 L Carbon Dioxide 21 L BUN 57 H Creatinine 2.1 H Glucose 151 H POC Glucose 146 H 141 H Lactic Acid Calcium 8.3 L Phosphorus Magnesium Direct Bilirubin ALT Alkaline Phosphatase Troponin T C-Reactive Protein Total Protein Albumin Triglycerides Cholesterol LDL Cholesterol Direct HDL Cholesterol Urine WBC (Auto) Urine Creatinine Urine Total Protein Vancomycin Trough Rheumatoid Factor Complement C4 Miscellaneous Test Crossmatch 10/11/16 10/11/16 10/11/16 04:15 04:15 05:30 WBC 28.3 H RBC 3.12 L Hgb 9.3 L Hct 28.7 L D MCV MCH MCHC RDW 17.7 H Plt Count 128 L Lymph % (Auto) Dare % (Auto) Lymph # Dare # Seg Neutrophils % Seg Neuts % (Manual) Lymphocytes % (Manual) Monocytes % (Manual) Eosinophils % (Manual) Basophils % (Manual) Nucleated RBC % Seg Neutrophils # Seg Neutrophils # Man Lymphocytes # (Manual) Monocytes # (Manual) Eosinophils # (Manual) PT INR Fibrinogen dRVVT Confirm Interp Factor V Activity POC ABG pH POC ABG pCO2 POC ABG pO2 Sodium Potassium Chloride Carbon Dioxide BUN Creatinine Glucose POC Glucose 167 H Lactic Acid Calcium Phosphorus Magnesium Direct Bilirubin ALT Alkaline Phosphatase Troponin T C-Reactive Protein 15.80 H Total Protein Albumin Triglycerides Cholesterol LDL Cholesterol Direct HDL Cholesterol Urine WBC (Auto) Urine Creatinine Urine Total Protein Vancomycin Trough Rheumatoid Factor Complement C4 Miscellaneous Test Crossmatch 10/11/16 10/11/16 10/11/16 11:40 15:49 23:57 WBC RBC Hgb Hct MCV MCH MCHC RDW Plt Count Lymph % (Auto) Dare % (Auto) Lymph # Dare # Seg Neutrophils % Seg Neuts % (Manual) Lymphocytes % (Manual) Monocytes % (Manual) Eosinophils % (Manual) Basophils % (Manual) Nucleated RBC % Seg Neutrophils # Seg Neutrophils # Man Lymphocytes # (Manual) Monocytes # (Manual) Eosinophils # (Manual) PT INR Fibrinogen dRVVT Confirm Interp Factor V Activity POC ABG pH POC ABG pCO2 POC ABG pO2 Sodium Potassium Chloride Carbon Dioxide BUN Creatinine Glucose POC Glucose 139 H 168 H 161 H Lactic Acid Calcium Phosphorus Magnesium Direct Bilirubin ALT Alkaline Phosphatase Troponin T C-Reactive Protein Total Protein Albumin Triglycerides Cholesterol LDL Cholesterol Direct HDL Cholesterol Urine WBC (Auto) Urine Creatinine Urine Total Protein Vancomycin Trough Rheumatoid Factor Complement C4 Miscellaneous Test Crossmatch 10/12/16 10/12/16 10/12/16 04:40 04:40 05:44 WBC 22.5 H RBC 2.88 L Hgb 8.8 L Hct 26.8 L MCV MCH MCHC RDW 17.8 H Plt Count Lymph % (Auto) Dare % (Auto) Lymph # Dare # Seg Neutrophils % Seg Neuts % (Manual) Lymphocytes % (Manual) Monocytes % (Manual) Eosinophils % (Manual) Basophils % (Manual) Nucleated RBC % Seg Neutrophils # Seg Neutrophils # Man Lymphocytes # (Manual) Monocytes # (Manual) Eosinophils # (Manual) PT INR Fibrinogen dRVVT Confirm Interp Factor V Activity POC ABG pH POC ABG pCO2 POC ABG pO2 Sodium 134 L Potassium Chloride 93.0 L Carbon Dioxide BUN 74 H Creatinine 2.5 H Glucose 137 H POC Glucose 158 H Lactic Acid Calcium 8.2 L Phosphorus Magnesium Direct Bilirubin ALT Alkaline Phosphatase Troponin T C-Reactive Protein Total Protein Albumin Triglycerides Cholesterol LDL Cholesterol Direct HDL Cholesterol Urine WBC (Auto) Urine Creatinine Urine Total Protein Vancomycin Trough Rheumatoid Factor Complement C4 Miscellaneous Test Crossmatch 10/12/16 10/12/16 10/12/16 12:27 18:18 23:46 WBC RBC Hgb Hct MCV MCH MCHC RDW Plt Count Lymph % (Auto) Dare % (Auto) Lymph # Dare # Seg Neutrophils % Seg Neuts % (Manual) Lymphocytes % (Manual) Monocytes % (Manual) Eosinophils % (Manual) Basophils % (Manual) Nucleated RBC % Seg Neutrophils # Seg Neutrophils # Man Lymphocytes # (Manual) Monocytes # (Manual) Eosinophils # (Manual) PT INR Fibrinogen dRVVT Confirm Interp Factor V Activity POC ABG pH POC ABG pCO2 POC ABG pO2 Sodium Potassium Chloride Carbon Dioxide BUN Creatinine Glucose POC Glucose 153 H 140 H 150 H Lactic Acid Calcium Phosphorus Magnesium Direct Bilirubin ALT Alkaline Phosphatase Troponin T C-Reactive Protein Total Protein Albumin Triglycerides Cholesterol LDL Cholesterol Direct HDL Cholesterol Urine WBC (Auto) Urine Creatinine Urine Total Protein Vancomycin Trough Rheumatoid Factor Complement C4 Miscellaneous Test Crossmatch 10/13/16 10/13/16 10/13/16 06:22 09:20 12:29 WBC RBC Hgb Hct MCV MCH MCHC RDW Plt Count Lymph % (Auto) Dare % (Auto) Lymph # Dare # Seg Neutrophils % Seg Neuts % (Manual) Lymphocytes % (Manual) Monocytes % (Manual) Eosinophils % (Manual) Basophils % (Manual) Nucleated RBC % Seg Neutrophils # Seg Neutrophils # Man Lymphocytes # (Manual) Monocytes # (Manual) Eosinophils # (Manual) PT INR Fibrinogen dRVVT Confirm Interp Factor V Activity POC ABG pH POC ABG pCO2 POC ABG pO2 Sodium Potassium Chloride Carbon Dioxide BUN Creatinine Glucose POC Glucose 165 H 193 H Lactic Acid Calcium Phosphorus Magnesium Direct Bilirubin ALT Alkaline Phosphatase Troponin T C-Reactive Protein Total Protein Albumin Triglycerides Cholesterol LDL Cholesterol Direct HDL Cholesterol Urine WBC (Auto) Urine Creatinine Urine Total Protein Vancomycin Trough Rheumatoid Factor Complement C4 Miscellaneous Test Flexitest 1 H Crossmatch 10/13/16 10/13/16 10/13/16 18:09 Unknown Unknown WBC 23.4 H RBC 2.83 L Hgb 8.7 L Hct 26.1 L MCV MCH MCHC RDW 18.1 H Plt Count Lymph % (Auto) Dare % (Auto) Lymph # Dare # Seg Neutrophils % Seg Neuts % (Manual) Lymphocytes % (Manual) Monocytes % (Manual) Eosinophils % (Manual) Basophils % (Manual) Nucleated RBC % Seg Neutrophils # Seg Neutrophils # Man Lymphocytes # (Manual) Monocytes # (Manual) Eosinophils # (Manual) PT INR Fibrinogen dRVVT Confirm Interp Factor V Activity POC ABG pH POC ABG pCO2 POC ABG pO2 Sodium Potassium Chloride 95.8 L Carbon Dioxide BUN 82 H Creatinine 2.6 H Glucose 152 H POC Glucose 166 H Lactic Acid Calcium Phosphorus Magnesium Direct Bilirubin ALT Alkaline Phosphatase Troponin T C-Reactive Protein Total Protein Albumin Triglycerides Cholesterol LDL Cholesterol Direct HDL Cholesterol Urine WBC (Auto) Urine Creatinine Urine Total Protein Vancomycin Trough Rheumatoid Factor Complement C4 Miscellaneous Test Crossmatch 10/14/16 10/14/16 10/14/16 05:38 06:35 08:10 WBC 20.7 H RBC 2.81 L Hgb 8.4 L Hct 27.2 L MCV MCH MCHC RDW 19.4 H Plt Count Lymph % (Auto) Dare % (Auto) Lymph # Dare # Seg Neutrophils % Seg Neuts % (Manual) Lymphocytes % (Manual) Monocytes % (Manual) Eosinophils % (Manual) Basophils % (Manual) Nucleated RBC % Seg Neutrophils # Seg Neutrophils # Man Lymphocytes # (Manual) Monocytes # (Manual) Eosinophils # (Manual) PT INR Fibrinogen dRVVT Confirm Interp Factor V Activity POC ABG pH POC ABG pCO2 POC ABG pO2 Sodium Potassium Chloride Carbon Dioxide BUN 58 H Creatinine 1.9 H Glucose 169 H POC Glucose 195 H Lactic Acid Calcium Phosphorus Magnesium Direct Bilirubin ALT Alkaline Phosphatase Troponin T C-Reactive Protein Total Protein Albumin Triglycerides Cholesterol LDL Cholesterol Direct HDL Cholesterol Urine WBC (Auto) Urine Creatinine Urine Total Protein Vancomycin Trough Rheumatoid Factor Complement C4 Miscellaneous Test Crossmatch 10/14/16 10/14/16 10/14/16 11:44 17:13 23:28 WBC RBC Hgb Hct MCV MCH MCHC RDW Plt Count Lymph % (Auto) Dare % (Auto) Lymph # Dare # Seg Neutrophils % Seg Neuts % (Manual) Lymphocytes % (Manual) Monocytes % (Manual) Eosinophils % (Manual) Basophils % (Manual) Nucleated RBC % Seg Neutrophils # Seg Neutrophils # Man Lymphocytes # (Manual) Monocytes # (Manual) Eosinophils # (Manual) PT INR Fibrinogen dRVVT Confirm Interp Factor V Activity POC ABG pH POC ABG pCO2 POC ABG pO2 Sodium Potassium Chloride Carbon Dioxide BUN Creatinine Glucose POC Glucose 174 H 121 H 151 H Lactic Acid Calcium Phosphorus Magnesium Direct Bilirubin ALT Alkaline Phosphatase Troponin T C-Reactive Protein Total Protein Albumin Triglycerides Cholesterol LDL Cholesterol Direct HDL Cholesterol Urine WBC (Auto) Urine Creatinine Urine Total Protein Vancomycin Trough Rheumatoid Factor Complement C4 Miscellaneous Test Crossmatch 10/15/16 10/15/16 10/15/16 05:06 12:26 17:48 WBC RBC Hgb Hct MCV MCH MCHC RDW Plt Count Lymph % (Auto) Dare % (Auto) Lymph # Dare # Seg Neutrophils % Seg Neuts % (Manual) Lymphocytes % (Manual) Monocytes % (Manual) Eosinophils % (Manual) Basophils % (Manual) Nucleated RBC % Seg Neutrophils # Seg Neutrophils # Man Lymphocytes # (Manual) Monocytes # (Manual) Eosinophils # (Manual) PT INR Fibrinogen dRVVT Confirm Interp Factor V Activity POC ABG pH POC ABG pCO2 POC ABG pO2 Sodium Potassium Chloride Carbon Dioxide BUN Creatinine Glucose POC Glucose 151 H 149 H 153 H Lactic Acid Calcium Phosphorus Magnesium Direct Bilirubin ALT Alkaline Phosphatase Troponin T C-Reactive Protein Total Protein Albumin Triglycerides Cholesterol LDL Cholesterol Direct HDL Cholesterol Urine WBC (Auto) Urine Creatinine Urine Total Protein Vancomycin Trough Rheumatoid Factor Complement C4 Miscellaneous Test Crossmatch 10/15/16 10/15/16 10/16/16 Unknown Unknown 00:02 WBC 23.4 H RBC 2.78 L Hgb 8.5 L Hct 25.7 L MCV MCH MCHC RDW 18.7 H Plt Count Lymph % (Auto) Dare % (Auto) Lymph # Dare # Seg Neutrophils % Seg Neuts % (Manual) Lymphocytes % (Manual) Monocytes % (Manual) Eosinophils % (Manual) Basophils % (Manual) Nucleated RBC % Seg Neutrophils # Seg Neutrophils # Man Lymphocytes # (Manual) Monocytes # (Manual) Eosinophils # (Manual) PT INR Fibrinogen dRVVT Confirm Interp Factor V Activity POC ABG pH POC ABG pCO2 POC ABG pO2 Sodium Potassium Chloride Carbon Dioxide BUN 73 H Creatinine 2.3 H Glucose 120 H POC Glucose 137 H Lactic Acid Calcium Phosphorus Magnesium Direct Bilirubin ALT Alkaline Phosphatase Troponin T C-Reactive Protein Total Protein Albumin Triglycerides Cholesterol LDL Cholesterol Direct HDL Cholesterol Urine WBC (Auto) Urine Creatinine Urine Total Protein Vancomycin Trough Rheumatoid Factor Complement C4 Miscellaneous Test Crossmatch 10/16/16 10/16/16 10/16/16 05:44 06:25 06:25 WBC 22.5 H RBC 2.76 L Hgb 8.3 L Hct 25.2 L MCV MCH MCHC RDW 18.3 H Plt Count Lymph % (Auto) Dare % (Auto) Lymph # Dare # Seg Neutrophils % Seg Neuts % (Manual) Lymphocytes % (Manual) Monocytes % (Manual) Eosinophils % (Manual) Basophils % (Manual) Nucleated RBC % Seg Neutrophils # Seg Neutrophils # Man Lymphocytes # (Manual) Monocytes # (Manual) Eosinophils # (Manual) PT INR Fibrinogen dRVVT Confirm Interp Factor V Activity POC ABG pH POC ABG pCO2 POC ABG pO2 Sodium Potassium Chloride Carbon Dioxide BUN 92 H Creatinine 3.0 H Glucose 138 H POC Glucose 110 H Lactic Acid Calcium Phosphorus Magnesium Direct Bilirubin ALT Alkaline Phosphatase Troponin T C-Reactive Protein Total Protein Albumin Triglycerides Cholesterol LDL Cholesterol Direct HDL Cholesterol Urine WBC (Auto) Urine Creatinine Urine Total Protein Vancomycin Trough Rheumatoid Factor Complement C4 Miscellaneous Test Crossmatch 10/16/16 10/16/16 10/16/16 11:27 11:48 17:36 WBC RBC Hgb Hct MCV MCH MCHC RDW Plt Count Lymph % (Auto) Dare % (Auto) Lymph # Dare # Seg Neutrophils % Seg Neuts % (Manual) Lymphocytes % (Manual) Monocytes % (Manual) Eosinophils % (Manual) Basophils % (Manual) Nucleated RBC % Seg Neutrophils # Seg Neutrophils # Man Lymphocytes # (Manual) Monocytes # (Manual) Eosinophils # (Manual) PT INR Fibrinogen dRVVT Confirm Interp Factor V Activity POC ABG pH 7.582 H POC ABG pCO2 27.4 L POC ABG pO2 110 H Sodium Potassium Chloride Carbon Dioxide BUN Creatinine Glucose POC Glucose 121 H 133 H Lactic Acid Calcium Phosphorus Magnesium Direct Bilirubin ALT Alkaline Phosphatase Troponin T C-Reactive Protein Total Protein Albumin Triglycerides Cholesterol LDL Cholesterol Direct HDL Cholesterol Urine WBC (Auto) Urine Creatinine Urine Total Protein Vancomycin Trough Rheumatoid Factor Complement C4 Miscellaneous Test Crossmatch 10/16/16 10/17/16 10/17/16 20:48 04:24 04:24 WBC 21.4 H RBC 2.72 L Hgb 8.0 L Hct 25.2 L MCV MCH MCHC RDW 18.0 H Plt Count Lymph % (Auto) Dare % (Auto) Lymph # Dare # Seg Neutrophils % Seg Neuts % (Manual) Lymphocytes % (Manual) Monocytes % (Manual) Eosinophils % (Manual) Basophils % (Manual) Nucleated RBC % Seg Neutrophils # Seg Neutrophils # Man Lymphocytes # (Manual) Monocytes # (Manual) Eosinophils # (Manual) PT INR Fibrinogen dRVVT Confirm Interp Factor V Activity POC ABG pH 7.561 H POC ABG pCO2 24.4 L POC ABG pO2 77 L Sodium 148 H Potassium Chloride Carbon Dioxide BUN 104 H Creatinine 3.0 H Glucose 149 H POC Glucose Lactic Acid Calcium Phosphorus Magnesium Direct Bilirubin ALT Alkaline Phosphatase 138 H Troponin T C-Reactive Protein Total Protein 6.2 L Albumin 1.5 L Triglycerides Cholesterol LDL Cholesterol Direct HDL Cholesterol Urine WBC (Auto) Urine Creatinine Urine Total Protein Vancomycin Trough Rheumatoid Factor Complement C4 Miscellaneous Test Crossmatch 10/17/16 10/17/16 10/17/16 06:02 12:17 17:14 WBC RBC Hgb Hct MCV MCH MCHC RDW Plt Count Lymph % (Auto) Dare % (Auto) Lymph # Dare # Seg Neutrophils % Seg Neuts % (Manual) Lymphocytes % (Manual) Monocytes % (Manual) Eosinophils % (Manual) Basophils % (Manual) Nucleated RBC % Seg Neutrophils # Seg Neutrophils # Man Lymphocytes # (Manual) Monocytes # (Manual) Eosinophils # (Manual) PT INR Fibrinogen dRVVT Confirm Interp Factor V Activity POC ABG pH POC ABG pCO2 POC ABG pO2 Sodium Potassium Chloride Carbon Dioxide BUN Creatinine Glucose POC Glucose 170 H 167 H 126 H Lactic Acid Calcium Phosphorus Magnesium Direct Bilirubin ALT Alkaline Phosphatase Troponin T C-Reactive Protein Total Protein Albumin Triglycerides Cholesterol LDL Cholesterol Direct HDL Cholesterol Urine WBC (Auto) Urine Creatinine Urine Total Protein Vancomycin Trough Rheumatoid Factor Complement C4 Miscellaneous Test Crossmatch 10/17/16 10/18/16 10/18/16 23:17 04:00 04:00 WBC 20.7 H RBC 2.47 L Hgb 7.4 L Hct 22.9 L MCV MCH MCHC RDW 17.5 H Plt Count Lymph % (Auto) Dare % (Auto) Lymph # Dare # Seg Neutrophils % Seg Neuts % (Manual) Lymphocytes % (Manual) Monocytes % (Manual) Eosinophils % (Manual) Basophils % (Manual) Nucleated RBC % Seg Neutrophils # Seg Neutrophils # Man Lymphocytes # (Manual) Monocytes # (Manual) Eosinophils # (Manual) PT INR Fibrinogen dRVVT Confirm Interp Factor V Activity POC ABG pH POC ABG pCO2 POC ABG pO2 Sodium 149 H Potassium Chloride 107.9 H Carbon Dioxide 20 L BUN 117 H Creatinine 3.2 H Glucose 119 H POC Glucose 121 H Lactic Acid Calcium Phosphorus Magnesium Direct Bilirubin ALT Alkaline Phosphatase Troponin T C-Reactive Protein Total Protein Albumin Triglycerides Cholesterol LDL Cholesterol Direct HDL Cholesterol Urine WBC (Auto) Urine Creatinine Urine Total Protein Vancomycin Trough Rheumatoid Factor Complement C4 Miscellaneous Test Crossmatch 10/18/16 10/18/16 10/18/16 05:23 10:46 17:30 WBC RBC Hgb Hct MCV MCH MCHC RDW Plt Count Lymph % (Auto) Dare % (Auto) Lymph # Dare # Seg Neutrophils % Seg Neuts % (Manual) Lymphocytes % (Manual) Monocytes % (Manual) Eosinophils % (Manual) Basophils % (Manual) Nucleated RBC % Seg Neutrophils # Seg Neutrophils # Man Lymphocytes # (Manual) Monocytes # (Manual) Eosinophils # (Manual) PT INR Fibrinogen dRVVT Confirm Interp Factor V Activity POC ABG pH POC ABG pCO2 POC ABG pO2 Sodium Potassium Chloride Carbon Dioxide BUN Creatinine Glucose POC Glucose 119 H 155 H 124 H Lactic Acid Calcium Phosphorus Magnesium Direct Bilirubin ALT Alkaline Phosphatase Troponin T C-Reactive Protein Total Protein Albumin Triglycerides Cholesterol LDL Cholesterol Direct HDL Cholesterol Urine WBC (Auto) Urine Creatinine Urine Total Protein Vancomycin Trough Rheumatoid Factor Complement C4 Miscellaneous Test Crossmatch 10/19/16 10/19/16 10/19/16 04:00 04:00 05:25 WBC 17.4 H RBC 2.54 L Hgb 7.7 L Hct 23.6 L MCV MCH MCHC RDW 17.3 H Plt Count Lymph % (Auto) Dare % (Auto) Lymph # Dare # Seg Neutrophils % Seg Neuts % (Manual) Lymphocytes % (Manual) Monocytes % (Manual) Eosinophils % (Manual) Basophils % (Manual) Nucleated RBC % Seg Neutrophils # Seg Neutrophils # Man Lymphocytes # (Manual) Monocytes # (Manual) Eosinophils # (Manual) PT INR Fibrinogen dRVVT Confirm Interp Factor V Activity POC ABG pH POC ABG pCO2 POC ABG pO2 Sodium Potassium Chloride Carbon Dioxide BUN 72 H Creatinine 2.1 H Glucose 116 H POC Glucose 119 H Lactic Acid Calcium Phosphorus Magnesium Direct Bilirubin ALT Alkaline Phosphatase Troponin T C-Reactive Protein Total Protein Albumin Triglycerides Cholesterol LDL Cholesterol Direct HDL Cholesterol Urine WBC (Auto) Urine Creatinine Urine Total Protein Vancomycin Trough Rheumatoid Factor Complement C4 Miscellaneous Test Crossmatch 10/19/16 10/19/16 10/20/16 11:46 23:59 06:00 WBC RBC Hgb Hct MCV MCH MCHC RDW Plt Count Lymph % (Auto) Dare % (Auto) Lymph # Dare # Seg Neutrophils % Seg Neuts % (Manual) Lymphocytes % (Manual) Monocytes % (Manual) Eosinophils % (Manual) Basophils % (Manual) Nucleated RBC % Seg Neutrophils # Seg Neutrophils # Man Lymphocytes # (Manual) Monocytes # (Manual) Eosinophils # (Manual) PT INR Fibrinogen dRVVT Confirm Interp Factor V Activity POC ABG pH POC ABG pCO2 POC ABG pO2 Sodium Potassium Chloride Carbon Dioxide 17 L BUN 94 H Creatinine 2.7 H Glucose POC Glucose 116 H 117 H Lactic Acid Calcium Phosphorus Magnesium Direct Bilirubin ALT Alkaline Phosphatase Troponin T C-Reactive Protein Total Protein Albumin Triglycerides Cholesterol LDL Cholesterol Direct HDL Cholesterol Urine WBC (Auto) Urine Creatinine Urine Total Protein Vancomycin Trough Rheumatoid Factor Complement C4 Miscellaneous Test Crossmatch 10/20/16 10/20/16 10/20/16 06:00 11:49 18:36 WBC 19.7 H RBC 2.51 L Hgb 7.7 L Hct 23.5 L MCV MCH MCHC RDW 17.5 H Plt Count Lymph % (Auto) Dare % (Auto) Lymph # Dare # Seg Neutrophils % Seg Neuts % (Manual) Lymphocytes % (Manual) Monocytes % (Manual) Eosinophils % (Manual) Basophils % (Manual) Nucleated RBC % Seg Neutrophils # Seg Neutrophils # Man Lymphocytes # (Manual) Monocytes # (Manual) Eosinophils # (Manual) PT INR Fibrinogen dRVVT Confirm Interp Factor V Activity POC ABG pH POC ABG pCO2 POC ABG pO2 Sodium Potassium Chloride Carbon Dioxide BUN Creatinine Glucose POC Glucose 117 H 127 H Lactic Acid Calcium Phosphorus Magnesium Direct Bilirubin ALT Alkaline Phosphatase Troponin T C-Reactive Protein Total Protein Albumin Triglycerides Cholesterol LDL Cholesterol Direct HDL Cholesterol Urine WBC (Auto) Urine Creatinine Urine Total Protein Vancomycin Trough Rheumatoid Factor Complement C4 Miscellaneous Test Crossmatch 10/20/16 10/21/16 10/21/16 23:39 04:00 05:54 WBC RBC Hgb Hct MCV MCH MCHC RDW Plt Count Lymph % (Auto) Dare % (Auto) Lymph # Dare # Seg Neutrophils % Seg Neuts % (Manual) Lymphocytes % (Manual) Monocytes % (Manual) Eosinophils % (Manual) Basophils % (Manual) Nucleated RBC % Seg Neutrophils # Seg Neutrophils # Man Lymphocytes # (Manual) Monocytes # (Manual) Eosinophils # (Manual) PT INR Fibrinogen dRVVT Confirm Interp Factor V Activity POC ABG pH POC ABG pCO2 POC ABG pO2 Sodium Potassium 5.4 H D Chloride Carbon Dioxide 15 L BUN 110 H Creatinine 3.0 H Glucose POC Glucose 114 H 119 H Lactic Acid Calcium Phosphorus Magnesium Direct Bilirubin ALT Alkaline Phosphatase Troponin T C-Reactive Protein Total Protein Albumin Triglycerides Cholesterol LDL Cholesterol Direct HDL Cholesterol Urine WBC (Auto) Urine Creatinine Urine Total Protein Vancomycin Trough Rheumatoid Factor Complement C4 Miscellaneous Test Crossmatch Allied health notes reviewed: RT
--- NOTE | 2016-10-21 14:48 | Progress Note ---
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 Remains unreponsive. Objective - Vital Signs Vital signs: Vital Signs - 12hr 10/21/16 10/21/16 10/21/16 03:00 03:30 03:39 Temperature Pulse Rate 112 H 113 H 107 H Respiratory 27 H 30 H Rate Respiratory Rate [ Generalized] Blood Pressure 119/80 127/78 126/75 O2 Sat by Pulse 100 96 100 Oximetry O2 Sat by Pulse Oximetry [ Assessment] 10/21/16 10/21/16 10/21/16 04:00 04:30 05:01 Temperature 100.3 F H Pulse Rate 121 H 124 H 117 H Respiratory 36 H 34 H 19 Rate Respiratory Rate [ Generalized] Blood Pressure 121/85 141/84 134/75 O2 Sat by Pulse 97 100 Oximetry O2 Sat by Pulse Oximetry [ Assessment] 10/21/16 10/21/16 10/21/16 05:31 06:00 06:30 Temperature Pulse Rate 111 H 111 H 109 H Respiratory 34 H 27 H 28 H Rate Respiratory Rate [ Generalized] Blood Pressure 134/75 144/84 126/74 O2 Sat by Pulse 97 97 Oximetry O2 Sat by Pulse Oximetry [ Assessment] 10/21/16 10/21/16 10/21/16 07:00 07:15 07:18 Temperature Pulse Rate 98 H 102 H Respiratory 24 Rate Respiratory Rate [ Generalized] Blood Pressure 119/68 118/66 O2 Sat by Pulse 100 99 Oximetry O2 Sat by Pulse 98 Oximetry [ Assessment] 10/21/16 10/21/16 10/21/16 07:30 08:00 08:30 Temperature 99.8 F H Pulse Rate 100 H 103 H 103 H Respiratory 24 24 25 H Rate Respiratory Rate [ Generalized] Blood Pressure 123/74 121/77 118/68 O2 Sat by Pulse 100 100 100 Oximetry O2 Sat by Pulse Oximetry [ Assessment] 10/21/16 10/21/16 10/21/16 09:00 09:31 10:00 Temperature Pulse Rate 106 H 118 H 115 H Respiratory 24 28 H 24 Rate Respiratory 25 H Rate [ Generalized] Blood Pressure 125/75 157/89 108/66 O2 Sat by Pulse 100 98 Oximetry O2 Sat by Pulse Oximetry [ Assessment] 10/21/16 10/21/16 10/21/16 10:30 10:35 11:00 Temperature Pulse Rate 116 H 95 H 116 H Respiratory 32 H 33 H Rate Respiratory Rate [ Generalized] Blood Pressure 119/64 111/63 O2 Sat by Pulse 93 98 86 Oximetry O2 Sat by Pulse Oximetry [ Assessment] 10/21/16 10/21/16 10/21/16 11:30 12:00 12:14 Temperature 100.1 F H Pulse Rate 108 H 111 H 115 H Respiratory 26 H 30 H Rate Respiratory Rate [ Generalized] Blood Pressure 92/44 99/59 99/55 O2 Sat by Pulse 87 90 Oximetry O2 Sat by Pulse Oximetry [ Assessment] 10/21/16 10/21/16 10/21/16 12:30 13:00 14:00 Temperature Pulse Rate 114 H 114 H Respiratory 34 H 26 H 26 H Rate Respiratory Rate [ Generalized] Blood Pressure 98/52 105/58 116/65 O2 Sat by Pulse 92 97 98 Oximetry O2 Sat by Pulse Oximetry [ Assessment] - General Appearance General appearance: intubated (trach) Respiratory: Present: Other (coarse breath sounds bilaterally) Cardiology: tachycardia, S1S2 Gastrointestinal: hypoactive bowel sounds, other (JUAN drain) Neurologic: other (no purposeful movement; does not track) Musculoskeletal: other (trace edema) - Lab 10/20/16 06:00 10/21/16 04:00 Most recent lab results Calcium 9.3 mg/dL (8.4-10.2) 10/21/16 04:00 Phosphorus 3.50 mg/dL (2.5-4.5) 10/21/16 04:00 Magnesium 1.90 mg/dL (1.7-2.3) 10/21/16 04:00 Urine Creatinine 54.8 mg/dL (0.1-20.0) H 09/21/16 12:00 Urine Sodium 36 mEq/L 09/16/16 19:19 Urine Total Protein 16 mg/dL (5-11.8) H 09/16/16 19:19
[2016-10-21] MEDS ORDERED: NACL 0.9% 100 ML IV PRN (15:53)
--- NOTE | 2016-10-21 15:58 | Progress Note ---
Assessment and Plan - Patient Problems (1) Dislodged gastrostomy tube Current Visit: Yes Status: Acute Plan to address problem: await CT. continue abx. continue supportive care. continue local wound care. Subjective Date of service: 10/21/16 Patient Reports: Positive: fever, other (family at bedside) Objective Vital Signs - 12hr 10/21/16 10/21/16 10/21/16 04:00 04:30 05:01 Temperature 100.3 F H Pulse Rate 121 H 124 H 117 H Respiratory 36 H 34 H 19 Rate Respiratory Rate [ Generalized] Blood Pressure 121/85 141/84 134/75 O2 Sat by Pulse 97 100 Oximetry O2 Sat by Pulse Oximetry [ Assessment] 10/21/16 10/21/16 10/21/16 05:31 06:00 06:30 Temperature Pulse Rate 111 H 111 H 109 H Respiratory 34 H 27 H 28 H Rate Respiratory Rate [ Generalized] Blood Pressure 134/75 144/84 126/74 O2 Sat by Pulse 97 97 Oximetry O2 Sat by Pulse Oximetry [ Assessment] 10/21/16 10/21/16 10/21/16 07:00 07:15 07:18 Temperature Pulse Rate 98 H 102 H Respiratory 24 Rate Respiratory Rate [ Generalized] Blood Pressure 119/68 118/66 O2 Sat by Pulse 100 99 Oximetry O2 Sat by Pulse 98 Oximetry [ Assessment] 10/21/16 10/21/16 10/21/16 07:30 08:00 08:30 Temperature 99.8 F H Pulse Rate 100 H 103 H 103 H Respiratory 24 24 25 H Rate Respiratory Rate [ Generalized] Blood Pressure 123/74 121/77 118/68 O2 Sat by Pulse 100 100 100 Oximetry O2 Sat by Pulse Oximetry [ Assessment] 10/21/16 10/21/16 10/21/16 09:00 09:31 10:00 Temperature Pulse Rate 106 H 118 H 115 H Respiratory 24 28 H 24 Rate Respiratory 25 H Rate [ Generalized] Blood Pressure 125/75 157/89 108/66 O2 Sat by Pulse 100 98 Oximetry O2 Sat by Pulse Oximetry [ Assessment] 10/21/16 10/21/16 10/21/16 10:30 10:35 11:00 Temperature Pulse Rate 116 H 95 H 116 H Respiratory 32 H 33 H Rate Respiratory Rate [ Generalized] Blood Pressure 119/64 111/63 O2 Sat by Pulse 93 98 86 Oximetry O2 Sat by Pulse Oximetry [ Assessment] 10/21/16 10/21/16 10/21/16 11:30 12:00 12:14 Temperature 100.1 F H Pulse Rate 108 H 111 H 115 H Respiratory 26 H 30 H Rate Respiratory Rate [ Generalized] Blood Pressure 92/44 99/59 99/55 O2 Sat by Pulse 87 90 Oximetry O2 Sat by Pulse Oximetry [ Assessment] 10/21/16 10/21/16 10/21/16 12:30 13:00 13:38 Temperature Pulse Rate 114 H 114 H 107 H Respiratory 34 H 26 H 33 H Rate Respiratory Rate [ Generalized] Blood Pressure 98/52 105/58 108/66 O2 Sat by Pulse 92 97 98 Oximetry O2 Sat by Pulse Oximetry [ Assessment] 10/21/16 10/21/16 10/21/16 14:00 14:30 15:00 Temperature Pulse Rate 112 H 112 H 118 H Respiratory 27 H 29 H 29 H Rate Respiratory Rate [ Generalized] Blood Pressure 100/53 116/65 128/74 O2 Sat by Pulse 97 99 99 Oximetry O2 Sat by Pulse Oximetry [ Assessment] 10/21/16 15:30 Temperature Pulse Rate 124 H Respiratory 35 H Rate Respiratory Rate [ Generalized] Blood Pressure 125/74 O2 Sat by Pulse 92 Oximetry O2 Sat by Pulse Oximetry [ Assessment] - General physical appearance no distress - Respiratory normal respiratory effort - Abdomen soft, not tender, wound (packed with iodoform gauze. No significant drainage. No purulence noted.) - Labs 10/20/16 06:00 10/21/16 04:00 Diabetes panel 10/21/16 Range/Units 04:00 Sodium 140 (137-145) mmol/L Potassium 5.4 H D (3.6-5.0) mmol/L Chloride 105.7 (98-107) mmol/L Carbon Dioxide 15 L (22-30) mmol/L BUN 110 H (7-17) mg/dL Creatinine 3.0 H (0.7-1.2) mg/dL Glucose 98 (65-100) mg/dL Calcium 9.3 (8.4-10.2) mg/dL Calcium panel 10/21/16 Range/Units 04:00 Calcium 9.3 (8.4-10.2) mg/dL Phosphorus 3.50 (2.5-4.5) mg/dL Pituitary panel 10/21/16 Range/Units 04:00 Sodium 140 (137-145) mmol/L Potassium 5.4 H D (3.6-5.0) mmol/L Chloride 105.7 (98-107) mmol/L Carbon Dioxide 15 L (22-30) mmol/L BUN 110 H (7-17) mg/dL Creatinine 3.0 H (0.7-1.2) mg/dL Glucose 98 (65-100) mg/dL Calcium 9.3 (8.4-10.2) mg/dL Adrenal panel 10/21/16 Range/Units 04:00 Sodium 140 (137-145) mmol/L Potassium 5.4 H D (3.6-5.0) mmol/L Chloride 105.7 (98-107) mmol/L Carbon Dioxide 15 L (22-30) mmol/L BUN 110 H (7-17) mg/dL Creatinine 3.0 H (0.7-1.2) mg/dL Glucose 98 (65-100) mg/dL Calcium 9.3 (8.4-10.2) mg/dL
[2016-10-21] MEDS: DIFLUCAN 200 MG/100 ML BAG IV SCH (17:00)
--- NOTE | 2016-10-21 18:14 | Cat Scan Report ---
FINAL REPORT EXAM: CT ABDOMEN PELVIS W CON HISTORY: Purulent drainage from wound TECHNIQUE: CT examination of the ABDOMEN after IV contrast CT examination of the PELVIS after IV contrast PRIORS: 10/03/2016 and 06/15/2016 FINDINGS: NG tube distal tip in proximal stomach. Tubing may be kinked in mid stomach. Interval removal of percutaneous gastrostomy. Nonspecific soft tissue density with slight fat stranding is noted in the anterior abdominal wall at the site of previous percutaneous gastrostomy tract. Patient arm in the diagnostic [id number] degrades image quality and limits the examination. Moderate abdomen and pelvic ascites is slightly more prominent than comparison. Scattered abdominal wall edema is relatively unchanged. Slight decrease in mesenteric edema. Small bilateral posterior pleural effusions are also unchanged. Stable adjacent lower lobe atelectasis and/or pneumonia. Again noted is evidence of prior cholecystectomy with surgically absent gallbladder. Normal-appearing liver, left adrenal, pancreas, and spleen. Stable fatty nodule in right adrenal posteriorly suggestive of myelolipoma. Intact normal caliber abdominal aorta without evidence of aneurysm. Normal caliber IVC. Stable right renal cyst. No renal calculus or hydronephrosis. The ureters are largely obscured by ascites and adjacent anatomy. Normal-appearing stomach and duodenum. Normal-appearing proximal small bowel. Mid and distal small bowel again demonstrates nonspecific moderate diffuse mural thickening, to include the terminal ileum. Moderate diffuse mural thickening is also noted throughout the ascending colon and proximal aspect of the transverse colon. Degree of wall thickening is slightly more prominent than comparison. In the pelvis, the decompressed urinary bladder appears normal, containing a Herndon catheter. Normal-appearing uterus and adnexa. Rectal balloon remains in place. Slight sigmoid diverticulosis without evidence of acute diverticulitis. No evidence of free air or colonic distention. IMPRESSION: NG tube with distal tip in proximal stomach. Distal tubing may be kinked in mid stomach Interval removal of percutaneous gastrostomy. Soft tissue prominence with fat stranding in the region of the tract may reflect edema, inflammation, or infection. No definite fluid collection to suggest abscess in this region. Moderate abdomen and pelvic ascites is slightly more prominent than comparison. Scattered abdominal wall edema is relatively unchanged but mesenteric edema is decreased Small bilateral posterior pleural effusions are unchanged, again with adjacent slight lower lobe atelectasis and/or pneumonia Stable fatty nodule in right adrenal suggestive of myelolipoma Slightly greater thickening of distal small bowel and ascending colon may reflect worsened enteritis. Differential includes ischemia, but not definite from this exam Slight sigmoid diverticulosis without CT evidence of acute diverticulitis
[2016-10-21] MEDS ORDERED: TPN ADULT 2,016 ML IV SCH (20:00)
[2016-10-21] MEDS ORDERED: NACL 0.9% 1000 ML 2,000 ML ONE (20:47)
[2016-10-21] MEDS: HEPARIN IV PRN (22:54)
[2016-10-22] MEDS: INTRALIPID 20% 250 ML IV SCH ×2 (00:27→00:30)
[2016-10-22] MEDS: LOPRESSOR IV SCH ×7 (01:50→21:47)
[2016-10-22] MEDS: fentaNYL DRIP Premix 2,000 MCG/100 ML BAG IV SCH (02:37)
[2016-10-22] MEDS: HumuLIN R SUB-Q SCH ×4 (06:00→18:39)
[2016-10-22 07:16] LABS: Basophils # (Auto) 0.2 K/mm3 (0.0-0.1); Basophils % (Auto) 1.4 % (0.0-1.8); Eosinophils # (Auto) 0.1 K/mm3 (0.0-0.4); Eosinophils % (Auto) 0.8 % (0.0-4.3); Lymphocytes # (Auto) 2.2 K/mm3 (1.2-5.4); Lymphocytes % (Auto) 15.9 % (13.4-35.0); Mean Corpuscular HGB Conc 35 % (30-34); Mean Corpuscular Hemoglobin 34 pg (28-32); Mean Corpuscular Volume 98 fl (79-97); Monocytes # (Auto) 1.4 K/mm3 (0.0-0.8); Monocytes % (Auto) 9.9 % (0.0-7.3); Platelet Count 302 K/mm3 (140-440); Red Blood Count 2.03 M/mm3 (3.65-5.03); Red Cell Distribution Width 17.8 % (13.2-15.2)
[2016-10-22 07:17] LABS: BUN/Creatinine Ratio 31.25; Calcium 7.8 mg/dL (8.4-10.2)
[2016-10-22 07:21] LABS: Hematocrit 20.5 % (30.3-42.9)
--- NOTE | 2016-10-22 07:44 | Progress Note ---
Assessment and Plan Assessment and plan: --Hyperkalemia; Kayexalate 15 g 1 dose Nephrology following --Acute hypoxic respiratory failure Vent dependent, Status post trach and peg, pulmonary following --Severe sepsis with septic shock UTI/candidemia/peritonitis due to gastric perforation from dislodged PEG Continue current antibiotics --Acute massive left MCA CVA, with mass effect Antiplatelets and statins Supportive care --Toxic metabolic Encephalopathy Unresponsive, supportive care, poor prognosis --Paroxysmal A. fib Status post failed conversion on 09/25 Received amiodarone drip , currently On beta blockers No anticoagulation due to anemia/thrombocytopenia, massive stroke --Acute on chronic kidney disease, On dialysis prn managed by Nephrology . Creatinine 2.7 today --Dislodged PEG Status post wedge gastrectomy, repair of gastric perforation, abdominal washout and drain placement --Acute blood loss anemia requiring multiple PRBC transfusions. Hemoglobin 7.4 today . Repeat stool occult blood positive. GI Physician was following, now signed off. Conservative management Monitor H&H closely, --Candidemia. On Diflucan --Toxic metabolic encephalopathy,unresponsive. neurology following --Diabetes mellitus type 2 Insulin/SSI --Leukocytosis . WBC trending down --Severe protein caloric malnutrition, nutrition supplements to proceeding --s/p Thrombocytopenia. Now resolved --DVT prophylaxis SCDs, no pharmacological agent given anemia requiring multiple PRBC transfusions , thrombocytopenia, massive stroke --Full code status, very poor prognosis Had a family meeting Monday10/10/16 plan of care poor prognosis was discussed. Present at meeting was the Risk management staff, manager telemetry and hospitalist , patient's son and patients' sister. Had another family meeting Monday10/14/16 at 10:00am with Dr. Nazario, , [employer] Official and patient's daughter. We discussed diagnosis,plan and prognosis, and all her questions were answered. Dispo. Very poor prognosis. Patient needs LTAC placement/hospice Critical care time 31 minutes History Interval history: Patient seen and evaluated medical records reviewed No new events reported by the nursing staff Remains intubated on vent Hospitalist Physical - Constitutional Vitals: Temp Pulse Resp BP Pulse Ox 102.9 F H 107 H 24 154/89 100 10/22/16 04:00 10/22/16 07:23 10/22/16 06:31 10/22/16 07:23 10/22/16 07:23 General appearance: Present: no acute distress, other (on vent, non-responsive) - EENT Eyes: Present: PERRL - Neck Neck: Present: other (status post tracheostomy) - Respiratory Respiratory effort: normal Respiratory: bilateral: diminished, rhonchi - Cardiovascular Rhythm: irregularly irregular Heart Sounds: Present: S1 & S2 - Extremities Extremities: abnormal (contracted left upper and lower extremities) Extremity abnormal: edema - Abdominal General gastrointestinal: soft, non-tender, non-distended, normal bowel sounds - Integumentary Integumentary: Present: clear - Psychiatric Psychiatric: other (noncommunicative) - Neurologic Neurologic: other (noncommunicative) Results - Labs CBC & Chem 7: 10/22/16 06:40 10/23/16 06:00 Labs: Laboratory Last Values WBC 14.0 K/mm3 (4.5-11.0) H 10/22/16 06:40 RBC 2.03 M/mm3 (3.65-5.03) L 10/22/16 06:40 Hgb 7.0 gm/dl (10.1-14.3) L 10/22/16 06:40 Hct 20.5 % (30.3-42.9) L 10/22/16 06:40 MCV 98 fl (79-97) H 10/22/16 06:40 MCH 34 pg (28-32) H 10/22/16 06:40 MCHC 35 % (30-34) H 10/22/16 06:40 RDW 17.8 % (13.2-15.2) H 10/22/16 06:40 Plt Count 302 K/mm3 (140-440) 10/22/16 06:40 Lymph % (Auto) 15.9 % (13.4-35.0) 10/22/16 06:40 [place] % (Auto) 9.9 % (0.0-7.3) H 10/22/16 06:40 Eos % (Auto) 0.8 % (0.0-4.3) 10/22/16 06:40 Baso % (Auto) 1.4 % (0.0-1.8) 10/22/16 06:40 Lymph # 2.2 K/mm3 (1.2-5.4) 10/22/16 06:40 [place] # 1.4 K/mm3 (0.0-0.8) H 10/22/16 06:40 Eos # 0.1 K/mm3 (0.0-0.4) 10/22/16 06:40 Baso # 0.2 K/mm3 (0.0-0.1) H 10/22/16 06:40 Add Manual Diff Complete 10/10/16 05:00 Total Counted 100 10/10/16 05:00 Seg Neutrophils % 72.0 % (40.0-70.0) H 10/22/16 06:40 Seg Neuts % (Manual) 61.0 % (40.0-70.0) 10/10/16 05:00 Band Neutrophils % 24.0 % 10/10/16 05:00 Lymphocytes % (Manual) 10.0 % (13.4-35.0) L 10/10/16 05:00 Reactive Lymphs % (Man) 0 % 10/10/16 05:00 Monocytes % (Manual) 2.0 % (0.0-7.3) 10/10/16 05:00 Eosinophils % (Manual) 0 % (0.0-4.3) 10/10/16 05:00 Basophils % (Manual) 0 % (0.0-1.8) 10/10/16 05:00 Metamyelocytes % 3.0 % 10/10/16 05:00 Myelocytes % 0 % 10/10/16 05:00 Promyelocytes % 0 % 10/10/16 05:00 Blast Cells % 0 % 10/10/16 05:00 Nucleated RBC % 4.0 % (0.0-0.9) H 10/10/16 05:00 Seg Neutrophils # 10.0 K/mm3 (1.8-7.7) H 10/22/16 06:40 Seg Neutrophils # Man 11.3 K/mm3 (1.8-7.7) H 10/10/16 05:00 Band Neutrophils # 4.4 K/mm3 10/10/16 05:00 Lymphocytes # (Manual) 1.9 K/mm3 (1.2-5.4) 10/10/16 05:00 Abs React Lymphs (Man) 0.0 K/mm3 10/10/16 05:00 Monocytes # (Manual) 0.4 K/mm3 (0.0-0.8) 10/10/16 05:00 Eosinophils # (Manual) 0.0 K/mm3 (0.0-0.4) 10/10/16 05:00 Basophils # (Manual) 0.0 K/mm3 (0.0-0.1) 10/10/16 05:00 Metamyelocytes # 0.6 K/mm3 10/10/16 05:00 Myelocytes # 0.0 K/mm3 10/10/16 05:00 Promyelocytes # 0.0 K/mm3 10/10/16 05:00 Blast Cells # 0.0 K/mm3 10/10/16 05:00 Pathologist Review 09/13/16 04:00 WBC Morphology Not Reportable 10/10/16 05:00 Hypersegmented Neuts Not Reportable 10/10/16 05:00 Hyposegmented Neuts Not Reportable 10/10/16 05:00 Hypogranular Neuts Not Reportable 10/10/16 05:00 Smudge Cells Not Reportable 10/10/16 05:00 Toxic Granulation Not Reportable 10/10/16 05:00 Toxic Vacuolation Not Reportable 10/10/16 05:00 Dohle Bodies Not Reportable 10/10/16 05:00 Pelger-Huet Anomaly Not Reportable 10/10/16 05:00 Jasmina Rods Not Reportable 10/10/16 05:00 Platelet Estimate Consistent w auto 10/10/16 05:00 Clumped Platelets Not Reportable 10/10/16 05:00 Plt Clumps, EDTA Not Reportable 10/10/16 05:00 Large Platelets Not Reportable 10/10/16 05:00 Giant Platelets Not Reportable 10/10/16 05:00 Platelet Satelliting Not Reportable 10/10/16 05:00 Plt Morphology Comment Not Reportable 10/10/16 05:00 RBC Morphology Not Reportable 10/10/16 05:00 Dimorphic RBCs Not Reportable 10/10/16 05:00 Polychromasia Rare 10/10/16 05:00 Hypochromasia 1+ 10/10/16 05:00 Poikilocytosis Not Reportable 10/10/16 05:00 Anisocytosis 1+ 10/10/16 05:00 Microcytosis Not Reportable 10/10/16 05:00 Macrocytosis 1+ 10/10/16 05:00 Spherocytes Not Reportable 10/10/16 05:00 Pappenheimer Bodies Not Reportable 10/10/16 05:00 Sickle Cells Not Reportable 10/10/16 05:00 Target Cells Not Reportable 10/10/16 05:00 Tear Drop Cells Not Reportable 10/10/16 05:00 Ovalocytes Not Reportable 10/10/16 05:00 Stomatocytes Few 10/06/16 03:50 Helmet Cells Not Reportable 10/10/16 05:00 [place] Bodies Not Reportable 10/10/16 05:00 [place] Rings Not Reportable 10/10/16 05:00 Chuck Cells Not Reportable 10/10/16 05:00 Bite Cells Not Reportable 10/10/16 05:00 Crenated Cell Not Reportable 10/10/16 05:00 Elliptocytes Not Reportable 10/10/16 05:00 Acanthocytes (Spur) Not Reportable 10/10/16 05:00 Rouleaux Not Reportable 10/10/16 05:00 Hemoglobin C Crystals Not Reportable 10/10/16 05:00 Schistocytes Not Reportable 10/10/16 05:00 Malaria parasites Not Reportable 10/10/16 05:00 ESR > 140.0 mm/Hr (0-20) 09/08/16 11:48 Jun Bodies Not Reportable 10/10/16 05:00 Hem Pathologist Commnt No 10/10/16 05:00 PT 19.0 Sec. (12.2-14.9) H 10/09/16 03:45 INR 1.51 (0.87-1.13) H 10/09/16 03:45 APTT 33.0 Sec. (24.2-36.6) 10/09/16 03:45 Thrombin Time 16.8 Sec. (15.1-19.6) 09/03/16 00:10 Fibrinogen 750 mg/dl (211-480) H 09/08/16 11:48 Lupus Anticoagulant see below 09/12/16 09:59 LA PTT Baseline See scanned report 09/12/16 09:59 dRVVT Confirm Interp Positive (Negative) H 09/12/16 09:59 dRVVT Screen 50:50 See scanned report 09/12/16 09:59 dRVVT Mix Interpret See scanned report 09/12/16 09:59 Protein C Antigen 122 % (70-140) 09/08/16 15:35 Free Protein S 97 % normal (50-147) 09/08/16 15:35 Total Protein S 109 % (70-140) 09/08/16 15:35 Antithrombin III Ag 100 % (80-120) 09/08/16 15:35 Heparin Anti-Xa, Unfract Negative (Negative) 09/29/16 13:35 Factor V Activity 182 % (65-150) H 09/08/16 15:35 POC ABG pH 7.561 (7.35-7.45) H 10/16/16 20:48 POC ABG pCO2 24.4 (35-45) L 10/16/16 20:48 POC ABG pO2 77 (80-105) L 10/16/16 20:48 POC ABG HCO3 21.9 10/16/16 20:48 POC ABG Total CO2 23 10/16/16 20:48 POC ABG O2 Sat 97 10/16/16 20:48 POC ABG Base Excess 0 10/16/16 20:48 FiO2 25 % 10/16/16 20:48 Sodium 130 mmol/L (137-145) L D 10/22/16 06:40 Potassium 3.6 mmol/L (3.6-5.0) D 10/22/16 06:40 Chloride 92.4 mmol/L (98-107) L 10/22/16 06:40 Carbon Dioxide 20 mmol/L (22-30) L 10/22/16 06:40 Anion Gap 21 mmol/L 10/22/16 06:40 BUN 50 mg/dL (7-17) H 10/22/16 06:40 Creatinine 1.6 mg/dL (0.7-1.2) H 10/22/16 06:40 Estimated GFR 42 ml/min 10/22/16 06:40 BUN/Creatinine Ratio 31.25 % 10/22/16 06:40 Glucose 589 mg/dL (65-100) H* 10/22/16 06:40 POC Glucose 109 (70-105) H 10/22/16 05:18 Osmolality 351 Mosm/kg 09/16/16 11:47 Lactic Acid 4.50 mmol/L (0.7-2.0) H* 09/28/16 07:25 Calcium 9.3 mg/dL (8.4-10.2) 10/21/16 04:00 Phosphorus 2.90 mg/dL (2.5-4.5) 10/22/16 06:40 Magnesium 1.60 mg/dL (1.7-2.3) L 10/22/16 06:40 Total Bilirubin 0.30 mg/dL (0.1-1.2) 10/17/16 04:24 Direct Bilirubin 0.3 mg/dL (0-0.2) H 10/10/16 05:00 Indirect Bilirubin 0.1 mg/dL 10/10/16 05:00 AST 39 units/L (5-40) 10/17/16 04:24 ALT 13 units/L (7-56) 10/17/16 04:24 Alkaline Phosphatase 138 units/L (35-129) H 10/17/16 04:24 Ammonia 27.0 umol/L (25-60) 09/07/16 08:37 Total Creatine Kinase 121 units/L (30-135) 09/29/16 20:12 CK-MB (CK-2) < 1.0 ng/mL (0.0-4.0) 09/29/16 20:12 CK-MB (CK-2) Rel Index 0.8 (0-4) 09/29/16 20:12 Troponin T 0.204 ng/mL (0.00-0.029) H* 09/29/16 20:12 C-Reactive Protein 15.80 mg/dL (0.00-1.30) H 10/11/16 04:15 Total Protein 6.2 g/dL (6.3-8.2) L 10/17/16 04:24 Albumin 1.5 g/dL (3.9-5) L 10/17/16 04:24 Albumin/Globulin Ratio 0.3 % 10/17/16 04:24 Triglycerides 137 mg/dL (2-149) 09/29/16 20:12 Cholesterol 31 mg/dL (50-199) L 09/29/16 20:12 LDL Cholesterol Direct 4 mg/dL (50-130) L 09/29/16 20:12 HDL Cholesterol 3 mg/dL (40-59) L 09/29/16 20:12 Cholesterol/HDL Ratio 10.33 % 09/29/16 20:12 Angiotensin Convert Enz See scanned report 09/08/16 11:48 Renin 0.99 ng/mL/h (0.25-5.82) 10/07/16 10:56 Aldosterone <1 ng/dL () 10/07/16 10:56 Aldosterone/Renin Dir see below 10/07/16 10:56 Serotonin Release Assay See scanned report 09/29/16 13:35 TSH 1.010 mlU/mL (0.270-4.200) 09/07/16 08:37 HCG, Qual Negative (Negative) 09/03/16 00:10 Urine Color [place] (Yellow) 10/07/16 18:30 Urine Turbidity Turbid (Clear) 10/07/16 18:30 Urine pH 7.0 (5.0-7.0) 10/07/16 18:30 Ur Specific [place] 1.012 (1.003-1.030) 10/07/16 18:30 Urine Protein 100 mg/dl mg/dL (Negative) 10/07/16 18:30 Urine Glucose (UA) Neg mg/dL (Negative) 10/07/16 18:30 Urine Ketones Neg mg/dL (Negative) 10/07/16 18:30 Urine Blood Lg (Negative) 10/07/16 18:30 Urine Nitrite Neg (Negative) 10/07/16 18:30 Urine Bilirubin Neg (Negative) 10/07/16 18:30 Urine Urobilinogen < 2.0 mg/dL (<2.0) 10/07/16 18:30 Ur Leukocyte Esterase Lg (Negative) 10/07/16 18:30 Urine WBC (Auto) > 182.0 /HPF (0.0-6.0) H 10/07/16 18:30 Urine RBC (Auto) > 182.0 /HPF (0.0-6.0) 10/07/16 18:30 U Epithel Cells (Auto) 1.0 /HPF (0-13.0) 10/07/16 18:30 Urine Bacteria (Auto) 3+ /HPF (Negative) 10/07/16 18:30 Urine WBC Clumps 2+ /HPF 09/07/16 02:47 Hyaline Casts 4 /LPF 09/07/16 02:47 Urine Mucus Few /HPF 10/07/16 18:30 Urine Yeast (Budding) 3+ /HPF 10/07/16 18:30 Urine Eosinophils None seen (None Seen) 09/07/16 16:00 Urine Total Volume 1350 09/21/16 12:00 Urine Creatinine 54.8 mg/dL (0.1-20.0) H 09/21/16 12:00 Height (in) 67.0 inches 09/21/16 12:00 Weight (lb) 92.0 lbs 09/21/16 12:00 Creatinine Clearance 15 09/21/16 12:00 Urine Sodium 36 mEq/L 09/16/16 19:19 Urine Total Protein 16 mg/dL (5-11.8) H 09/16/16 19:19 Vancomycin Trough 2.3 ug/mL (5.0-20.0) L 09/21/16 13:00 Random Vancomycin 17.0 ug/mL (0-40.0) 10/20/16 06:00 Urine Opiates Screen Presumptive negative 09/03/16 15:11 Urine Methadone Screen Presumptive positive 09/03/16 15:11 Ur Barbiturates Screen Presumptive positive 09/03/16 15:11 Ur Phencyclidine Scrn Presumptive negative 09/03/16 15:11 Ur Amphetamines Screen Presumptive negative 09/03/16 15:11 U Benzodiazepines Scrn Presumptive negative 09/03/16 15:11 Urine Cocaine Screen Presumptive negative 09/03/16 15:11 U Marijuana (THC) Screen Presumptive positive 09/03/16 15:11 Drugs of Abuse Note Disclamer 09/03/16 15:11 Rheumatoid Factor 24 IU/ml (0-13) H 09/08/16 11:48 SAHIL Screen Negative (Negative) 09/07/16 09:20 Proteinase 3 (PR3) Ab <1.0 AI (<1.0) 09/07/16 09:20 Myeloperoxidase Ab <1.0 AI (<1.0) 09/07/16 09:20 Sjogren's Antibody <1.0 AI (<1.0) 09/08/16 15:35 Scl-70 Scleroderma Ab <1.0 AI (<1.0) 09/08/16 15:35 Centromere B Antibody <1.0 AI (<1.0) 09/08/16 12:02 Heparin-induced Plt Ab Negative (Negative) 09/29/16 13:35 UF Heparin High Dose 11 % Release 09/29/16 13:35 SUDHIR UFH Low Dose 0.1 6 % Release 09/29/16 13:35 SUDHIR UFH Low Dose 0.5 8 % Release 09/29/16 13:35 Cardiolipid IgG Ab <14 GPL (<=14) 09/12/16 09:59 Cardiolipid IgA Ab <11 APL (<=11) 09/12/16 09:59 Cardiolipid IgM Ab <12 MPL (<=12) 09/12/16 09:59 Complement C3 148 mg/dL (90-180) 09/07/16 09:20 Complement C4 58 mg/dL (16-47) H 09/07/16 09:20 RPR Nonreactive (Nonreactive) 09/08/16 11:48 Hepatitis A IgM Ab Non-reactive (NonReactive) 09/24/16 14:40 Hep Bs Antigen Non-reactive (Negative) 09/24/16 14:40 Hep B Core IgM Ab Non-reactive (NonReactive) 09/24/16 14:40 Hepatitis C Antibody Non-reactive (NonReactive) 09/24/16 14:40 HIV 1&2 Antibody Rapid Non react (Non React) 09/08/16 11:48 HIV P24 Antigen Non react (Non React) 09/08/16 11:48 Miscellaneous Test Flexitest 1 H 10/13/16 09:20 Blood Type A POSITIVE 10/09/16 07:20 Antibody Screen Negative 10/09/16 07:20 DELORIS Antibody Screen Negative 09/25/16 10:30 Crossmatch See Detail 10/09/16 07:20
--- NOTE | 2016-10-22 07:48 | Progress Note ---
Assessment and Plan CT Scan does not show any signs of an abscess at this time. Continue with supportive care as is being done. Will follow. Subjective Date of service: 10/22/16 Patient Reports: Positive: other (Unchanged) Objective Vital Signs - 12hr 10/21/16 10/21/16 10/21/16 20:00 20:15 20:30 Temperature 99.6 F Pulse Rate 129 H 129 H 134 H Respiratory 32 H 32 H Rate Blood Pressure 171/108 171/108 162/105 O2 Sat by Pulse 100 100 Oximetry O2 Sat by Pulse Oximetry [ Assessment] 10/21/16 10/21/16 10/21/16 20:45 21:00 21:15 Temperature Pulse Rate 133 H 136 H 136 H Respiratory 33 H Rate Blood Pressure 168/107 165/111 174/115 O2 Sat by Pulse 100 Oximetry O2 Sat by Pulse Oximetry [ Assessment] 10/21/16 10/21/16 10/21/16 21:30 21:45 22:00 Temperature Pulse Rate 135 H 134 H 137 H Respiratory 32 H 33 H Rate Blood Pressure 176/105 162/93 167/110 O2 Sat by Pulse 100 100 Oximetry O2 Sat by Pulse Oximetry [ Assessment] 10/21/16 10/21/16 10/21/16 22:15 22:30 22:45 Temperature Pulse Rate 134 H 139 H 137 H Respiratory 35 H Rate Blood Pressure 152/111 153/102 151/112 O2 Sat by Pulse 100 Oximetry O2 Sat by Pulse Oximetry [ Assessment] 10/21/16 10/21/16 10/21/16 23:00 23:19 23:20 Temperature 99 F 99.0 F Pulse Rate 138 H 133 H Respiratory 33 H 33 H Rate Blood Pressure 161/113 177/105 O2 Sat by Pulse 100 Oximetry O2 Sat by Pulse Oximetry [ Assessment] 10/21/16 10/21/16 10/22/16 23:30 23:52 00:00 Temperature Pulse Rate 134 H 113 H 116 H Respiratory 22 27 H Rate Blood Pressure 179/110 181/100 180/100 O2 Sat by Pulse 100 100 100 Oximetry O2 Sat by Pulse 100 Oximetry [ Assessment] 10/22/16 10/22/16 10/22/16 00:30 01:00 01:30 Temperature Pulse Rate 111 H 109 H 109 H Respiratory 22 21 21 Rate Blood Pressure 141/86 132/82 130/79 O2 Sat by Pulse 100 100 100 Oximetry O2 Sat by Pulse Oximetry [ Assessment] 10/22/16 10/22/16 10/22/16 02:00 02:25 02:30 Temperature Pulse Rate 106 H 106 H 107 H Respiratory 20 20 Rate Blood Pressure 117/69 123/73 123/73 O2 Sat by Pulse 100 100 Oximetry O2 Sat by Pulse Oximetry [ Assessment] 10/22/16 10/22/16 10/22/16 03:00 03:30 04:00 Temperature 102.9 F H Pulse Rate 107 H 102 H 105 H Respiratory 21 21 21 Rate Blood Pressure 123/73 123/72 129/75 O2 Sat by Pulse 100 100 100 Oximetry O2 Sat by Pulse Oximetry [ Assessment] 10/22/16 10/22/16 10/22/16 04:15 04:30 05:00 Temperature Pulse Rate 104 H 108 H 109 H Respiratory 20 22 Rate Blood Pressure 118/67 146/76 137/71 O2 Sat by Pulse 100 100 100 Oximetry O2 Sat by Pulse Oximetry [ Assessment] 10/22/16 10/22/16 10/22/16 05:17 05:30 06:00 Temperature Pulse Rate 109 H 103 H 102 H Respiratory 21 20 Rate Blood Pressure 131/71 129/73 118/67 O2 Sat by Pulse 100 100 Oximetry O2 Sat by Pulse Oximetry [ Assessment] 10/22/16 10/22/16 06:31 07:23 Temperature Pulse Rate 118 H 107 H Respiratory 24 Rate Blood Pressure 163/87 154/89 O2 Sat by Pulse 100 100 Oximetry O2 Sat by Pulse Oximetry [ Assessment] - Abdomen soft, bowel sounds hypoactive, not distended, wound (with minimal drainage; No cellulitis) - Labs 10/22/16 06:40 10/22/16 06:40 Diabetes panel 10/22/16 Range/Units 06:40 Sodium 130 L D (137-145) mmol/L Potassium 3.6 D (3.6-5.0) mmol/L Chloride 92.4 L (98-107) mmol/L Carbon Dioxide 20 L (22-30) mmol/L BUN 50 H (7-17) mg/dL Creatinine 1.6 H (0.7-1.2) mg/dL Glucose 589 H* (65-100) mg/dL Calcium 7.8 L D (8.4-10.2) mg/dL Calcium panel 10/22/16 10/22/16 Range/Units 06:40 06:40 Calcium 7.8 L D (8.4-10.2) mg/dL Phosphorus 2.90 (2.5-4.5) mg/dL Pituitary panel 10/22/16 Range/Units 06:40 Sodium 130 L D (137-145) mmol/L Potassium 3.6 D (3.6-5.0) mmol/L Chloride 92.4 L (98-107) mmol/L Carbon Dioxide 20 L (22-30) mmol/L BUN 50 H (7-17) mg/dL Creatinine 1.6 H (0.7-1.2) mg/dL Glucose 589 H* (65-100) mg/dL Calcium 7.8 L D (8.4-10.2) mg/dL Adrenal panel 10/22/16 Range/Units 06:40 Sodium 130 L D (137-145) mmol/L Potassium 3.6 D (3.6-5.0) mmol/L Chloride 92.4 L (98-107) mmol/L Carbon Dioxide 20 L (22-30) mmol/L BUN 50 H (7-17) mg/dL Creatinine 1.6 H (0.7-1.2) mg/dL Glucose 589 H* (65-100) mg/dL Calcium 7.8 L D (8.4-10.2) mg/dL
[2016-10-22] MEDS ORDERED: MAGNESIUM SULFATE 2GM/50ML 2 GM/50 ML BAG IV ONE (08:30)
[2016-10-22] MEDS: PROTONIX IV SCH (09:57)
[2016-10-22] MEDS: ZOSYN/NS 2.25 GM/50ML 2.25 GM/50 ML BAG IV SCH ×3 (13:22→21:15)
--- NOTE | 2016-10-22 13:27 | Progress Note ---
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 No emergent indication today * Pressors prn MAP>65 * Rate control per cardiology * Transfusion of pRBC per primary team * Abx/antifungal per ID * Surgery recommendations noted * Vent management per critical care * Dose medications for renal function * Avoid potential nephrotoxins Subjective Date of service: 10/22/16 Principal diagnosis: Acute resp failure on MVS; S/P Acute CVA; Acute Encephalopathy; JUANITA Interval history: No acute events overnight. Objective - Vital Signs Vital signs: Vital Signs - 12hr 10/22/16 10/22/16 10/22/16 01:30 02:00 02:25 Temperature Pulse Rate 109 H 106 H 106 H Pulse Rate [ Right Radial] Respiratory 21 20 Rate Respiratory Rate [ Generalized] Blood Pressure 130/79 117/69 123/73 O2 Sat by Pulse 100 100 Oximetry 10/22/16 10/22/16 10/22/16 02:30 03:00 03:30 Temperature Pulse Rate 107 H 107 H 102 H Pulse Rate [ Right Radial] Respiratory 20 21 21 Rate Respiratory Rate [ Generalized] Blood Pressure 123/73 123/73 123/72 O2 Sat by Pulse 100 100 100 Oximetry 10/22/16 10/22/16 10/22/16 04:00 04:15 04:30 Temperature 102.9 F H Pulse Rate 105 H 104 H 108 H Pulse Rate [ Right Radial] Respiratory 21 20 Rate Respiratory Rate [ Generalized] Blood Pressure 129/75 118/67 146/76 O2 Sat by Pulse 100 100 100 Oximetry 10/22/16 10/22/16 10/22/16 05:00 05:17 05:30 Temperature Pulse Rate 109 H 109 H 103 H Pulse Rate [ Right Radial] Respiratory 22 21 Rate Respiratory Rate [ Generalized] Blood Pressure 137/71 131/71 129/73 O2 Sat by Pulse 100 100 Oximetry 10/22/16 10/22/16 10/22/16 06:00 06:31 07:00 Temperature Pulse Rate 102 H 118 H 107 H Pulse Rate [ Right Radial] Respiratory 20 24 21 Rate Respiratory Rate [ Generalized] Blood Pressure 118/67 163/87 154/89 O2 Sat by Pulse 100 100 100 Oximetry 10/22/16 10/22/16 10/22/16 07:23 07:30 08:00 Temperature 98.6 F Pulse Rate 107 H 104 H 107 H Pulse Rate [ Right Radial] Respiratory 21 22 Rate Respiratory Rate [ Generalized] Blood Pressure 154/89 146/82 145/84 O2 Sat by Pulse 100 100 100 Oximetry 10/22/16 10/22/16 10/22/16 08:30 09:00 09:30 Temperature Pulse Rate 104 H 107 H 104 H Pulse Rate [ Right Radial] Respiratory 23 22 22 Rate Respiratory Rate [ Generalized] Blood Pressure 135/81 135/81 151/90 O2 Sat by Pulse 100 100 100 Oximetry 10/22/16 10/22/16 10/22/16 09:57 10:00 10:30 Temperature Pulse Rate 97 H 97 H 91 H Pulse Rate [ Right Radial] Respiratory 21 22 Rate Respiratory 26 H Rate [ Generalized] Blood Pressure 151/90 130/76 119/75 O2 Sat by Pulse 100 100 Oximetry 10/22/16 10/22/16 10/22/16 11:00 11:30 12:00 Temperature 98.6 F Pulse Rate 103 H 101 H 93 H Pulse Rate [ 102 H Right Radial] Respiratory 22 19 20 Rate Respiratory Rate [ Generalized] Blood Pressure 168/90 160/92 157/83 O2 Sat by Pulse 100 100 100 Oximetry 10/22/16 10/22/16 10/22/16 12:30 13:00 13:05 Temperature Pulse Rate 97 H 105 H 106 H Pulse Rate [ Right Radial] Respiratory 23 20 Rate Respiratory Rate [ Generalized] Blood Pressure 158/89 162/93 162/93 O2 Sat by Pulse 100 100 100 Oximetry - General Appearance General appearance: intubated (via trach) EENT: ATNC Respiratory: Present: Other (coarse ant breath sounds) Cardiology: regular, S1S2 Gastrointestinal: hypoactive bowel sounds Neurologic: other (nonresponsive to tactile/verbal stimuli) Musculoskeletal: other (trace edema) - Lab 10/22/16 06:40 10/23/16 06:00 Most recent lab results Calcium 7.8 mg/dL (8.4-10.2) L D 10/22/16 06:40 Phosphorus 2.90 mg/dL (2.5-4.5) 10/22/16 06:40 Magnesium 1.60 mg/dL (1.7-2.3) L 10/22/16 06:40 Urine Creatinine 54.8 mg/dL (0.1-20.0) H 09/21/16 12:00 Urine Sodium 36 mEq/L 09/16/16 19:19 Urine Total Protein 16 mg/dL (5-11.8) H 09/16/16 19:19
--- NOTE | 2016-10-22 15:01 | Progress Note ---
Assessment and Plan (1) Acute respiratory failure with hypoxia Current Visit: Yes Status: Acute Plan to address problem: - continue aspiration precautions / address VAP bundles - continue to wean oxygen for MAP > 94% - continue bronchodilators and pulmonary toilet - s/p tracheostomy - continue daily PSV trials as tolerated (2) Acute CVA (cerebrovascular accident) Current Visit: Yes Status: Acute Plan to address problem: - out of tpA window (initially stopped due to uncontrolled HTN) - Left MCA teritory stroke with some midline shift on last CT - seen by neurology and prognosis for recovery of mental status guarded to poor - optimizing secondary prevention modalities now (BP, lipid anti-platelet therapy) - off systemic steroids now (started earlier for edema) - clinically about the same (3) Hypertensive emergency Current Visit: Yes Status: Acute Plan to address problem: - stopped all antihypertensives while septic prior - following clinically - on scheduled IV metoprolol with prn IV hydralazine (4) Obesity (BMI 35.0-39.9 without comorbidity) Current Visit: Yes Status: Chronic Plan to address problem: - nutrition consult placed for enteral formulation - on TPN now - following clinically (5) Type 2 diabetes mellitus Current Visit: Yes Status: Chronic Qualifiers: Diabetes mellitus complication status: D Diabetes mellitus complication detail: D Diabetic retinopathy severity: D Proliferative retinopathy type: P Diabetes mellitus macular edema: D Diabetes mellitus mediator insulin use : D Laterality: L Chronic kidney disease stage: C Plan to address problem: - continue SSI - discontinued lantus re: hypoglycemia - target BG's <180 mg/dl (6) Leukocytosis (leucocytosis) Current Visit: Yes Status: Acute Qualifiers: Leukocytosis type: leukemoid reaction Qualified Code(s): D72.823 - Leukemoid reaction Plan to address problem: - completed cancidas and de-escalate per ID recs - leucocytosis persistent but now trending down - on zosyn and diflucan now - wound cultures growing pseudomonas and dann (7) Agitation Current Visit: Yes Status: Acute Plan to address problem: - prn sedation / analgesia - tapered off seroquel for now (8) Atrial fibrillation Current Visit: Yes Status: Acute Qualifiers: Atrial fibrillation type: A Plan to address problem: - failed cardioversion earlier - cardiology evaluation ongoing - back in A-fib - continue amiodarone drip (change to p.o. once tolerating enterally) - on IV metoprolol scheduled re: HTN & tachycardia (9) JUANITA (acute kidney injury) Current Visit: Yes Status: Acute Plan to address problem: - on Dialysis now - continue HD/UF per nephrology recommendations (10) Pyrexia of unknown origin Current Visit: Yes Status: Acute Plan to address problem: - dopplers negative for DVT - continue to treat with Anti-infectives (11) Severe sepsis Current Visit: Yes Status: Acute Plan to address problem: - resume vasopressors for MAP < 60mmHg not responsive to volume - all central vascular access has been discontinued after fungemia reported - care plan formulated with ID input - BC's from 09/27/16 growing in 1of 2 but still no ID yet - coomplete micafungin per ID recs and stop date - wound care nurse also managing back wounds - clinically stable and hemodynamically improved - bo to RLQ incision removed and wound drained and packed - on contact precautions per ID (12) Emesis Current Visit: Yes Status: Acute Qualifiers: Vomiting type: V Vomiting Intractability: V Nausea presence: N Plan to address problem: - s/p surgical repair of gastric perforation - continue TPN for now - follow surgery recommendations (13) Discharge planning issues Current Visit: Yes Status: Acute Plan to address problem: - she remains critically ill on life sustaining interventions including MVS and at risk for further acute deterioration including .....30' CCT ....mediator prognosis is guarded Subjective Date of service: 10/22/16 Principal diagnosis: Acute resp failure on MVS; S/P Acute CVA; Acute Encephalopathy; JUANITA Interval history: Seen and examined at bedside; 24 hour events reviewed; nursing and respiratory care staff consulted; no adverse overnight events reported to me; still not tolerating PSV trials well; AMS is persistent; no high grade fevers; leucocytosis is improving; no emesis or overt aspiration Objective Vital Signs - 12hr 10/22/16 10/22/16 10/22/16 03:00 03:30 04:00 Temperature 102.9 F H Pulse Rate 107 H 102 H 105 H Pulse Rate [ Right Radial] Respiratory 21 21 21 Rate Respiratory Rate [ Generalized] Blood Pressure 123/73 123/72 129/75 O2 Sat by Pulse 100 100 100 Oximetry O2 Sat by Pulse Oximetry [ Assessment] 10/22/16 10/22/16 10/22/16 04:15 04:30 05:00 Temperature Pulse Rate 104 H 108 H 109 H Pulse Rate [ Right Radial] Respiratory 20 22 Rate Respiratory Rate [ Generalized] Blood Pressure 118/67 146/76 137/71 O2 Sat by Pulse 100 100 100 Oximetry O2 Sat by Pulse Oximetry [ Assessment] 10/22/16 10/22/16 10/22/16 05:17 05:30 06:00 Temperature Pulse Rate 109 H 103 H 102 H Pulse Rate [ Right Radial] Respiratory 21 20 Rate Respiratory Rate [ Generalized] Blood Pressure 131/71 129/73 118/67 O2 Sat by Pulse 100 100 Oximetry O2 Sat by Pulse Oximetry [ Assessment] 10/22/16 10/22/16 10/22/16 06:31 07:00 07:23 Temperature Pulse Rate 118 H 107 H 107 H Pulse Rate [ Right Radial] Respiratory 24 21 Rate Respiratory Rate [ Generalized] Blood Pressure 163/87 154/89 154/89 O2 Sat by Pulse 100 100 100 Oximetry O2 Sat by Pulse Oximetry [ Assessment] 10/22/16 10/22/16 10/22/16 07:30 08:00 08:30 Temperature 98.6 F Pulse Rate 104 H 107 H 104 H Pulse Rate [ Right Radial] Respiratory 21 22 23 Rate Respiratory Rate [ Generalized] Blood Pressure 146/82 145/84 135/81 O2 Sat by Pulse 100 100 100 Oximetry O2 Sat by Pulse Oximetry [ Assessment] 10/22/16 10/22/16 10/22/16 09:00 09:30 09:57 Temperature Pulse Rate 107 H 104 H 97 H Pulse Rate [ Right Radial] Respiratory 22 22 Rate Respiratory Rate [ Generalized] Blood Pressure 135/81 151/90 151/90 O2 Sat by Pulse 100 100 Oximetry O2 Sat by Pulse Oximetry [ Assessment] 10/22/16 10/22/16 10/22/16 10:00 10:30 11:00 Temperature Pulse Rate 97 H 91 H 103 H Pulse Rate [ Right Radial] Respiratory 21 22 22 Rate Respiratory 26 H Rate [ Generalized] Blood Pressure 130/76 119/75 168/90 O2 Sat by Pulse 100 100 100 Oximetry O2 Sat by Pulse Oximetry [ Assessment] 10/22/16 10/22/16 10/22/16 11:30 12:00 12:30 Temperature 98.6 F Pulse Rate 101 H 93 H 97 H Pulse Rate [ 102 H Right Radial] Respiratory 19 20 23 Rate Respiratory Rate [ Generalized] Blood Pressure 160/92 157/83 158/89 O2 Sat by Pulse 100 100 100 Oximetry O2 Sat by Pulse Oximetry [ Assessment] 10/22/16 10/22/16 10/22/16 13:00 13:05 13:30 Temperature Pulse Rate 105 H 106 H 105 H Pulse Rate [ Right Radial] Respiratory 20 19 Rate Respiratory Rate [ Generalized] Blood Pressure 162/93 162/93 162/98 O2 Sat by Pulse 100 100 100 Oximetry O2 Sat by Pulse Oximetry [ Assessment] 10/22/16 10/22/16 10/22/16 13:56 14:00 14:12 Temperature Pulse Rate 111 H 102 H Pulse Rate [ Right Radial] Respiratory 20 Rate Respiratory Rate [ Generalized] Blood Pressure 162/98 162/88 O2 Sat by Pulse 100 Oximetry O2 Sat by Pulse 100 Oximetry [ Assessment] 10/22/16 14:30 Temperature Pulse Rate 86 Pulse Rate [ Right Radial] Respiratory 18 Rate Respiratory Rate [ Generalized] Blood Pressure 171/78 O2 Sat by Pulse 100 Oximetry O2 Sat by Pulse Oximetry [ Assessment] Constitutional: no acute distress, other (eyes open; not tracking movements) Eyes: non-icteric, other (tracheostomy tube in midline of neck) ENT: oropharynx moist Neck: supple, no lymphadenopathy Effort: mildly labored Ascultation: Bilateral: diminished breath sounds (bases), rales Cardiovascular: regular rate and rhythm Gastrointestinal: hypoactive bowel sounds, soft, non-tender, non-distended, other (hema drain in place) Integumentary: other (erythema to skin of back with some healing areas; no obvious TEN's features) Extremities: no cyanosis, no edema, pulses normal, no ischemia or petechiae Neurologic: pupils equal and round, other (sedated) Psychiatric: other (unable to assess) CBC and BMP: 10/22/16 06:40 10/22/16 06:40 ABG, PT/INR, D-dimer: ABG POC ABG pH 7.561 (7.35-7.45) H 10/16/16 20:48 POC ABG pCO2 24.4 (35-45) L 10/16/16 20:48 POC ABG pO2 77 (80-105) L 10/16/16 20:48 POC ABG HCO3 21.9 10/16/16 20:48 POC ABG Total CO2 23 10/16/16 20:48 POC ABG O2 Sat 97 10/16/16 20:48 PT/INR, D-dimer PT 19.0 Sec. (12.2-14.9) H 10/09/16 03:45 INR 1.51 (0.87-1.13) H 10/09/16 03:45 Abnormal lab findings: Abnormal Labs 09/03/16 09/03/16 09/03/16 12:12 15:07 16:20 WBC RBC Hgb Hct MCV MCH MCHC RDW Plt Count Lymph % (Auto) [place] % (Auto) Lymph # [place] # Baso # Seg Neutrophils % Seg Neuts % (Manual) Lymphocytes % (Manual) Monocytes % (Manual) Eosinophils % (Manual) Basophils % (Manual) Nucleated RBC % Seg Neutrophils # Seg Neutrophils # Man Lymphocytes # (Manual) Monocytes # (Manual) Eosinophils # (Manual) PT INR Fibrinogen dRVVT Confirm Interp Factor V Activity POC ABG pH 7.452 H POC ABG pCO2 POC ABG pO2 Sodium Potassium Chloride Carbon Dioxide BUN Creatinine Glucose POC Glucose 178 H Lactic Acid Calcium Phosphorus 2.20 L Magnesium 1.60 L Direct Bilirubin ALT Alkaline Phosphatase Troponin T C-Reactive Protein Total Protein Albumin Triglycerides Cholesterol LDL Cholesterol Direct HDL Cholesterol Urine WBC (Auto) Urine Creatinine Urine Total Protein Vancomycin Trough Rheumatoid Factor Complement C4 Miscellaneous Test Crossmatch 09/03/16 09/03/16 09/03/16 17:57 17:58 23:50 WBC RBC Hgb Hct MCV MCH MCHC RDW Plt Count Lymph % (Auto) [place] % (Auto) Lymph # [place] # Baso # Seg Neutrophils % Seg Neuts % (Manual) Lymphocytes % (Manual) Monocytes % (Manual) Eosinophils % (Manual) Basophils % (Manual) Nucleated RBC % Seg Neutrophils # Seg Neutrophils # Man Lymphocytes # (Manual) Monocytes # (Manual) Eosinophils # (Manual) PT INR Fibrinogen dRVVT Confirm Interp Factor V Activity POC ABG pH POC ABG pCO2 POC ABG pO2 Sodium Potassium Chloride Carbon Dioxide BUN Creatinine Glucose POC Glucose 162 H 145 H Lactic Acid Calcium Phosphorus 2.30 L Magnesium Direct Bilirubin ALT Alkaline Phosphatase Troponin T C-Reactive Protein Total Protein Albumin Triglycerides Cholesterol LDL Cholesterol Direct HDL Cholesterol Urine WBC (Auto) Urine Creatinine Urine Total Protein Vancomycin Trough Rheumatoid Factor Complement C4 Miscellaneous Test Crossmatch 09/04/16 09/04/16 09/04/16 03:31 03:31 05:42 WBC RBC Hgb 9.7 L D Hct MCV 72 L MCH 23 L MCHC RDW 17.5 H Plt Count Lymph % (Auto) 11.1 L [place] % (Auto) Lymph # [place] # Baso # Seg Neutrophils % 84.3 H Seg Neuts % (Manual) Lymphocytes % (Manual) Monocytes % (Manual) Eosinophils % (Manual) Basophils % (Manual) Nucleated RBC % Seg Neutrophils # 8.9 H Seg Neutrophils # Man Lymphocytes # (Manual) Monocytes # (Manual) Eosinophils # (Manual) PT INR Fibrinogen dRVVT Confirm Interp Factor V Activity POC ABG pH POC ABG pCO2 POC ABG pO2 Sodium 135 L Potassium 2.9 L* Chloride 97.2 L Carbon Dioxide 19 L BUN Creatinine 1.7 H Glucose 170 H POC Glucose 152 H Lactic Acid Calcium Phosphorus Magnesium Direct Bilirubin ALT Alkaline Phosphatase Troponin T C-Reactive Protein Total Protein Albumin Triglycerides 160 H Cholesterol LDL Cholesterol Direct HDL Cholesterol 31 L Urine WBC (Auto) Urine Creatinine Urine Total Protein Vancomycin Trough Rheumatoid Factor Complement C4 Miscellaneous Test Crossmatch 09/04/16 09/04/16 09/04/16 11:34 17:46 23:29 WBC RBC Hgb Hct MCV MCH MCHC RDW Plt Count Lymph % (Auto) [place] % (Auto) Lymph # [place] # Baso # Seg Neutrophils % Seg Neuts % (Manual) Lymphocytes % (Manual) Monocytes % (Manual) Eosinophils % (Manual) Basophils % (Manual) Nucleated RBC % Seg Neutrophils # Seg Neutrophils # Man Lymphocytes # (Manual) Monocytes # (Manual) Eosinophils # (Manual) PT INR Fibrinogen dRVVT Confirm Interp Factor V Activity POC ABG pH POC ABG pCO2 POC ABG pO2 Sodium Potassium Chloride Carbon Dioxide BUN Creatinine Glucose POC Glucose 165 H 210 H 139 H Lactic Acid Calcium Phosphorus Magnesium Direct Bilirubin ALT Alkaline Phosphatase Troponin T C-Reactive Protein Total Protein Albumin Triglycerides Cholesterol LDL Cholesterol Direct HDL Cholesterol Urine WBC (Auto) Urine Creatinine Urine Total Protein Vancomycin Trough Rheumatoid Factor Complement C4 Miscellaneous Test Crossmatch 09/05/16 09/05/16 09/05/16 04:05 04:05 05:38 WBC RBC Hgb Hct MCV 76 L D MCH 23 L MCHC RDW 17.8 H Plt Count Lymph % (Auto) [place] % (Auto) Lymph # [place] # Baso # Seg Neutrophils % Seg Neuts % (Manual) Lymphocytes % (Manual) Monocytes % (Manual) Eosinophils % (Manual) Basophils % (Manual) Nucleated RBC % Seg Neutrophils # Seg Neutrophils # Man Lymphocytes # (Manual) Monocytes # (Manual) Eosinophils # (Manual) PT INR Fibrinogen dRVVT Confirm Interp Factor V Activity POC ABG pH POC ABG pCO2 POC ABG pO2 Sodium 134 L Potassium Chloride Carbon Dioxide 18 L BUN Creatinine 1.8 H Glucose 192 H POC Glucose 175 H Lactic Acid Calcium Phosphorus Magnesium Direct Bilirubin ALT Alkaline Phosphatase Troponin T C-Reactive Protein Total Protein Albumin Triglycerides Cholesterol LDL Cholesterol Direct HDL Cholesterol Urine WBC (Auto) Urine Creatinine Urine Total Protein Vancomycin Trough Rheumatoid Factor Complement C4 Miscellaneous Test Crossmatch 09/05/16 09/05/16 09/05/16 11:38 17:48 23:22 WBC RBC Hgb Hct MCV MCH MCHC RDW Plt Count Lymph % (Auto) [place] % (Auto) Lymph # [place] # Baso # Seg Neutrophils % Seg Neuts % (Manual) Lymphocytes % (Manual) Monocytes % (Manual) Eosinophils % (Manual) Basophils % (Manual) Nucleated RBC % Seg Neutrophils # Seg Neutrophils # Man Lymphocytes # (Manual) Monocytes # (Manual) Eosinophils # (Manual) PT INR Fibrinogen dRVVT Confirm Interp Factor V Activity POC ABG pH POC ABG pCO2 POC ABG pO2 Sodium Potassium Chloride Carbon Dioxide BUN Creatinine Glucose POC Glucose 164 H 186 H 195 H Lactic Acid Calcium Phosphorus Magnesium Direct Bilirubin ALT Alkaline Phosphatase Troponin T C-Reactive Protein Total Protein Albumin Triglycerides Cholesterol LDL Cholesterol Direct HDL Cholesterol Urine WBC (Auto) Urine Creatinine Urine Total Protein Vancomycin Trough Rheumatoid Factor Complement C4 Miscellaneous Test Crossmatch 09/06/16 09/06/16 09/06/16 04:12 05:59 07:32 WBC RBC Hgb Hct MCV MCH MCHC RDW Plt Count Lymph % (Auto) [place] % (Auto) Lymph # [place] # Baso # Seg Neutrophils % Seg Neuts % (Manual) Lymphocytes % (Manual) Monocytes % (Manual) Eosinophils % (Manual) Basophils % (Manual) Nucleated RBC % Seg Neutrophils # Seg Neutrophils # Man Lymphocytes # (Manual) Monocytes # (Manual) Eosinophils # (Manual) PT INR Fibrinogen dRVVT Confirm Interp Factor V Activity POC ABG pH 7.514 H POC ABG pCO2 29.1 L POC ABG pO2 72 L Sodium 133 L Potassium 3.4 L Chloride 94.9 L Carbon Dioxide 19 L BUN 30 H Creatinine 2.1 H Glucose 139 H POC Glucose 146 H Lactic Acid Calcium Phosphorus Magnesium Direct Bilirubin ALT Alkaline Phosphatase Troponin T C-Reactive Protein Total Protein Albumin Triglycerides Cholesterol LDL Cholesterol Direct HDL Cholesterol Urine WBC (Auto) Urine Creatinine Urine Total Protein Vancomycin Trough Rheumatoid Factor Complement C4 Miscellaneous Test Crossmatch 09/06/16 09/06/16 09/06/16 11:57 17:58 19:02 WBC RBC Hgb Hct MCV MCH MCHC RDW Plt Count Lymph % (Auto) [place] % (Auto) Lymph # [place] # Baso # Seg Neutrophils % Seg Neuts % (Manual) Lymphocytes % (Manual) Monocytes % (Manual) Eosinophils % (Manual) Basophils % (Manual) Nucleated RBC % Seg Neutrophils # Seg Neutrophils # Man Lymphocytes # (Manual) Monocytes # (Manual) Eosinophils # (Manual) PT INR Fibrinogen dRVVT Confirm Interp Factor V Activity POC ABG pH 7.465 H POC ABG pCO2 32.0 L POC ABG pO2 Sodium Potassium Chloride Carbon Dioxide BUN Creatinine Glucose POC Glucose 165 H 160 H Lactic Acid Calcium Phosphorus Magnesium Direct Bilirubin ALT Alkaline Phosphatase Troponin T C-Reactive Protein Total Protein Albumin Triglycerides Cholesterol LDL Cholesterol Direct HDL Cholesterol Urine WBC (Auto) Urine Creatinine Urine Total Protein Vancomycin Trough Rheumatoid Factor Complement C4 Miscellaneous Test Crossmatch 09/06/16 09/07/16 09/07/16 23:45 02:47 02:47 WBC RBC Hgb Hct MCV MCH MCHC RDW Plt Count Lymph % (Auto) [place] % (Auto) Lymph # [place] # Baso # Seg Neutrophils % Seg Neuts % (Manual) Lymphocytes % (Manual) Monocytes % (Manual) Eosinophils % (Manual) Basophils % (Manual) Nucleated RBC % Seg Neutrophils # Seg Neutrophils # Man Lymphocytes # (Manual) Monocytes # (Manual) Eosinophils # (Manual) PT INR Fibrinogen dRVVT Confirm Interp Factor V Activity POC ABG pH POC ABG pCO2 POC ABG pO2 Sodium Potassium Chloride Carbon Dioxide BUN Creatinine Glucose POC Glucose 204 H Lactic Acid Calcium Phosphorus Magnesium Direct Bilirubin ALT Alkaline Phosphatase Troponin T C-Reactive Protein Total Protein Albumin Triglycerides Cholesterol LDL Cholesterol Direct HDL Cholesterol Urine WBC (Auto) 68.0 H Urine Creatinine 106.1 H Urine Total Protein Vancomycin Trough Rheumatoid Factor Complement C4 Miscellaneous Test Crossmatch 09/07/16 09/07/16 09/07/16 04:50 06:19 06:39 WBC RBC Hgb Hct MCV MCH MCHC RDW Plt Count Lymph % (Auto) [place] % (Auto) Lymph # [place] # Baso # Seg Neutrophils % Seg Neuts % (Manual) Lymphocytes % (Manual) Monocytes % (Manual) Eosinophils % (Manual) Basophils % (Manual) Nucleated RBC % Seg Neutrophils # Seg Neutrophils # Man Lymphocytes # (Manual) Monocytes # (Manual) Eosinophils # (Manual) PT INR Fibrinogen dRVVT Confirm Interp Factor V Activity POC ABG pH 7.457 H POC ABG pCO2 32.1 L POC ABG pO2 76 L Sodium 132 L Potassium Chloride 94.7 L Carbon Dioxide BUN 53 H Creatinine 2.9 H Glucose 151 H POC Glucose 149 H Lactic Acid Calcium Phosphorus Magnesium Direct Bilirubin ALT Alkaline Phosphatase Troponin T C-Reactive Protein Total Protein Albumin Triglycerides Cholesterol LDL Cholesterol Direct HDL Cholesterol Urine WBC (Auto) Urine Creatinine Urine Total Protein Vancomycin Trough Rheumatoid Factor Complement C4 Miscellaneous Test Crossmatch 09/07/16 09/07/16 09/07/16 09:20 11:43 11:43 WBC 19.4 H RBC Hgb 8.3 L Hct 26.4 L D MCV 72 L D MCH 22 L MCHC RDW 17.9 H Plt Count Lymph % (Auto) 8.5 L [place] % (Auto) Lymph # [place] # 1.0 H Baso # Seg Neutrophils % 85.8 H Seg Neuts % (Manual) Lymphocytes % (Manual) Monocytes % (Manual) Eosinophils % (Manual) Basophils % (Manual) Nucleated RBC % Seg Neutrophils # 16.6 H Seg Neutrophils # Man Lymphocytes # (Manual) Monocytes # (Manual) Eosinophils # (Manual) PT INR Fibrinogen dRVVT Confirm Interp Factor V Activity POC ABG pH POC ABG pCO2 POC ABG pO2 Sodium 134 L Potassium Chloride 97.2 L Carbon Dioxide 20 L BUN 58 H Creatinine 2.9 H Glucose 147 H POC Glucose Lactic Acid Calcium Phosphorus 2.40 L Magnesium 2.40 H Direct Bilirubin ALT Alkaline Phosphatase Troponin T C-Reactive Protein Total Protein 5.8 L Albumin 2.2 L Triglycerides Cholesterol LDL Cholesterol Direct HDL Cholesterol Urine WBC (Auto) Urine Creatinine Urine Total Protein Vancomycin Trough Rheumatoid Factor Complement C4 58 H Miscellaneous Test Crossmatch 09/07/16 09/07/16 09/07/16 11:50 16:00 17:31 WBC RBC Hgb Hct MCV MCH MCHC RDW Plt Count Lymph % (Auto) [place] % (Auto) Lymph # [place] # Baso # Seg Neutrophils % Seg Neuts % (Manual) Lymphocytes % (Manual) Monocytes % (Manual) Eosinophils % (Manual) Basophils % (Manual) Nucleated RBC % Seg Neutrophils # Seg Neutrophils # Man Lymphocytes # (Manual) Monocytes # (Manual) Eosinophils # (Manual) PT INR Fibrinogen dRVVT Confirm Interp Factor V Activity POC ABG pH POC ABG pCO2 POC ABG pO2 158 H Sodium Potassium Chloride Carbon Dioxide BUN Creatinine Glucose POC Glucose 175 H Lactic Acid Calcium Phosphorus Magnesium Direct Bilirubin ALT Alkaline Phosphatase Troponin T C-Reactive Protein Total Protein Albumin Triglycerides Cholesterol LDL Cholesterol Direct HDL Cholesterol Urine WBC (Auto) Urine Creatinine 66.3 H Urine Total Protein Vancomycin Trough Rheumatoid Factor Complement C4 Miscellaneous Test Crossmatch 09/07/16 09/08/16 09/08/16 23:50 05:46 06:18 WBC 17.8 H RBC 3.58 L Hgb 8.1 L Hct 25.5 L MCV 71 L MCH 23 L MCHC RDW 18.4 H Plt Count Lymph % (Auto) [place] % (Auto) Lymph # [place] # Baso # Seg Neutrophils % Seg Neuts % (Manual) 92.0 H Lymphocytes % (Manual) 6.0 L Monocytes % (Manual) Eosinophils % (Manual) Basophils % (Manual) Nucleated RBC % Seg Neutrophils # Seg Neutrophils # Man 16.4 H Lymphocytes # (Manual) 1.1 L Monocytes # (Manual) Eosinophils # (Manual) PT INR Fibrinogen dRVVT Confirm Interp Factor V Activity POC ABG pH POC ABG pCO2 34.3 L POC ABG pO2 71 L Sodium Potassium Chloride Carbon Dioxide BUN Creatinine Glucose POC Glucose 216 H Lactic Acid Calcium Phosphorus Magnesium Direct Bilirubin ALT Alkaline Phosphatase Troponin T C-Reactive Protein Total Protein Albumin Triglycerides Cholesterol LDL Cholesterol Direct HDL Cholesterol Urine WBC (Auto) Urine Creatinine Urine Total Protein Vancomycin Trough Rheumatoid Factor Complement C4 Miscellaneous Test Crossmatch 09/08/16 09/08/16 09/08/16 06:18 06:51 10:55 WBC RBC Hgb Hct MCV MCH MCHC RDW Plt Count Lymph % (Auto) [place] % (Auto) Lymph # [place] # Baso # Seg Neutrophils % Seg Neuts % (Manual) Lymphocytes % (Manual) Monocytes % (Manual) Eosinophils % (Manual) Basophils % (Manual) Nucleated RBC % Seg Neutrophils # Seg Neutrophils # Man Lymphocytes # (Manual) Monocytes # (Manual) Eosinophils # (Manual) PT INR Fibrinogen dRVVT Confirm Interp Factor V Activity POC ABG pH POC ABG pCO2 POC ABG pO2 Sodium 133 L Potassium Chloride 96.9 L Carbon Dioxide 20 L BUN 63 H Creatinine 2.7 H Glucose 195 H POC Glucose 204 H 169 H Lactic Acid Calcium Phosphorus Magnesium Direct Bilirubin ALT Alkaline Phosphatase Troponin T C-Reactive Protein Total Protein Albumin Triglycerides Cholesterol LDL Cholesterol Direct HDL Cholesterol Urine WBC (Auto) Urine Creatinine Urine Total Protein Vancomycin Trough Rheumatoid Factor Complement C4 Miscellaneous Test Crossmatch 09/08/16 09/08/16 09/08/16 11:48 11:48 11:48 WBC RBC Hgb Hct MCV MCH MCHC RDW Plt Count Lymph % (Auto) [place] % (Auto) Lymph # [place] # Baso # Seg Neutrophils % Seg Neuts % (Manual) Lymphocytes % (Manual) Monocytes % (Manual) Eosinophils % (Manual) Basophils % (Manual) Nucleated RBC % Seg Neutrophils # Seg Neutrophils # Man Lymphocytes # (Manual) Monocytes # (Manual) Eosinophils # (Manual) PT INR Fibrinogen 750 H dRVVT Confirm Interp Factor V Activity POC ABG pH POC ABG pCO2 POC ABG pO2 Sodium Potassium Chloride Carbon Dioxide BUN Creatinine Glucose POC Glucose Lactic Acid Calcium Phosphorus Magnesium Direct Bilirubin ALT Alkaline Phosphatase Troponin T C-Reactive Protein 15.70 H Total Protein Albumin Triglycerides Cholesterol LDL Cholesterol Direct HDL Cholesterol Urine WBC (Auto) Urine Creatinine Urine Total Protein Vancomycin Trough Rheumatoid Factor 24 H Complement C4 Miscellaneous Test Crossmatch 09/08/16 09/08/16 09/09/16 15:35 18:25 00:24 WBC RBC Hgb Hct MCV MCH MCHC RDW Plt Count Lymph % (Auto) [place] % (Auto) Lymph # [place] # Baso # Seg Neutrophils % Seg Neuts % (Manual) Lymphocytes % (Manual) Monocytes % (Manual) Eosinophils % (Manual) Basophils % (Manual) Nucleated RBC % Seg Neutrophils # Seg Neutrophils # Man Lymphocytes # (Manual) Monocytes # (Manual) Eosinophils # (Manual) PT INR Fibrinogen dRVVT Confirm Interp Factor V Activity 182 H POC ABG pH POC ABG pCO2 POC ABG pO2 Sodium Potassium Chloride Carbon Dioxide BUN Creatinine Glucose POC Glucose 184 H 216 H Lactic Acid Calcium Phosphorus Magnesium Direct Bilirubin ALT Alkaline Phosphatase Troponin T C-Reactive Protein Total Protein Albumin Triglycerides Cholesterol LDL Cholesterol Direct HDL Cholesterol Urine WBC (Auto) Urine Creatinine Urine Total Protein Vancomycin Trough Rheumatoid Factor Complement C4 Miscellaneous Test Crossmatch 09/09/16 09/09/16 09/09/16 03:00 03:00 04:04 WBC 27.9 H RBC Hgb 8.7 L Hct 28.1 L MCV 72 L MCH 22 L MCHC RDW 18.4 H Plt Count 485 H Lymph % (Auto) [place] % (Auto) Lymph # [place] # Baso # Seg Neutrophils % Seg Neuts % (Manual) 77.0 H Lymphocytes % (Manual) 9.0 L Monocytes % (Manual) Eosinophils % (Manual) Basophils % (Manual) Nucleated RBC % Seg Neutrophils # Seg Neutrophils # Man 21.5 H Lymphocytes # (Manual) Monocytes # (Manual) 2.0 H Eosinophils # (Manual) PT INR Fibrinogen dRVVT Confirm Interp Factor V Activity POC ABG pH POC ABG pCO2 POC ABG pO2 121 H Sodium 135 L Potassium Chloride 96.3 L Carbon Dioxide 21 L BUN 83 H Creatinine 3.0 H Glucose 135 H POC Glucose Lactic Acid Calcium Phosphorus Magnesium Direct Bilirubin ALT Alkaline Phosphatase Troponin T C-Reactive Protein Total Protein Albumin Triglycerides Cholesterol LDL Cholesterol Direct HDL Cholesterol Urine WBC (Auto) Urine Creatinine Urine Total Protein Vancomycin Trough Rheumatoid Factor Complement C4 Miscellaneous Test Crossmatch 09/09/16 09/09/16 09/09/16 05:41 11:55 14:13 WBC RBC Hgb Hct MCV MCH MCHC RDW Plt Count Lymph % (Auto) [place] % (Auto) Lymph # [place] # Baso # Seg Neutrophils % Seg Neuts % (Manual) Lymphocytes % (Manual) Monocytes % (Manual) Eosinophils % (Manual) Basophils % (Manual) Nucleated RBC % Seg Neutrophils # Seg Neutrophils # Man Lymphocytes # (Manual) Monocytes # (Manual) Eosinophils # (Manual) PT INR Fibrinogen dRVVT Confirm Interp Factor V Activity POC ABG pH POC ABG pCO2 POC ABG pO2 Sodium Potassium Chloride Carbon Dioxide BUN Creatinine Glucose POC Glucose 155 H 186 H Lactic Acid Calcium Phosphorus Magnesium Direct Bilirubin ALT Alkaline Phosphatase Troponin T C-Reactive Protein Total Protein Albumin Triglycerides Cholesterol LDL Cholesterol Direct HDL Cholesterol Urine WBC (Auto) 25.0 H Urine Creatinine Urine Total Protein Vancomycin Trough Rheumatoid Factor Complement C4 Miscellaneous Test Crossmatch 09/09/16 09/09/16 09/10/16 17:33 23:13 05:09 WBC RBC Hgb Hct MCV MCH MCHC RDW Plt Count Lymph % (Auto) [place] % (Auto) Lymph # [place] # Baso # Seg Neutrophils % Seg Neuts % (Manual) Lymphocytes % (Manual) Monocytes % (Manual) Eosinophils % (Manual) Basophils % (Manual) Nucleated RBC % Seg Neutrophils # Seg Neutrophils # Man Lymphocytes # (Manual) Monocytes # (Manual) Eosinophils # (Manual) PT INR Fibrinogen dRVVT Confirm Interp Factor V Activity POC ABG pH POC ABG pCO2 POC ABG pO2 74 L Sodium Potassium Chloride Carbon Dioxide BUN Creatinine Glucose POC Glucose 211 H 215 H Lactic Acid Calcium Phosphorus Magnesium Direct Bilirubin ALT Alkaline Phosphatase Troponin T C-Reactive Protein Total Protein Albumin Triglycerides Cholesterol LDL Cholesterol Direct HDL Cholesterol Urine WBC (Auto) Urine Creatinine Urine Total Protein Vancomycin Trough Rheumatoid Factor Complement C4 Miscellaneous Test Crossmatch 09/10/16 09/10/16 09/10/16 05:17 05:17 11:31 WBC 15.8 H RBC 3.25 L Hgb 7.3 L Hct 22.9 L MCV 71 L MCH 23 L MCHC RDW 18.4 H Plt Count Lymph % (Auto) [place] % (Auto) Lymph # [place] # Baso # Seg Neutrophils % Seg Neuts % (Manual) 91.0 H Lymphocytes % (Manual) 4.0 L Monocytes % (Manual) Eosinophils % (Manual) Basophils % (Manual) Nucleated RBC % Seg Neutrophils # Seg Neutrophils # Man 14.4 H Lymphocytes # (Manual) 0.6 L Monocytes # (Manual) Eosinophils # (Manual) PT INR Fibrinogen dRVVT Confirm Interp Factor V Activity POC ABG pH POC ABG pCO2 POC ABG pO2 Sodium Potassium Chloride Carbon Dioxide 21 L BUN 93 H Creatinine 2.9 H Glucose 146 H POC Glucose 188 H Lactic Acid Calcium 8.1 L Phosphorus Magnesium Direct Bilirubin ALT Alkaline Phosphatase Troponin T C-Reactive Protein Total Protein Albumin Triglycerides Cholesterol LDL Cholesterol Direct HDL Cholesterol Urine WBC (Auto) Urine Creatinine Urine Total Protein Vancomycin Trough Rheumatoid Factor Complement C4 Miscellaneous Test Crossmatch 09/10/16 09/10/16 09/10/16 13:17 17:20 23:32 WBC RBC Hgb Hct MCV MCH MCHC RDW Plt Count Lymph % (Auto) [place] % (Auto) Lymph # [place] # Baso # Seg Neutrophils % Seg Neuts % (Manual) Lymphocytes % (Manual) Monocytes % (Manual) Eosinophils % (Manual) Basophils % (Manual) Nucleated RBC % Seg Neutrophils # Seg Neutrophils # Man Lymphocytes # (Manual) Monocytes # (Manual) Eosinophils # (Manual) PT INR Fibrinogen dRVVT Confirm Interp Factor V Activity POC ABG pH POC ABG pCO2 POC ABG pO2 Sodium Potassium Chloride Carbon Dioxide BUN Creatinine Glucose POC Glucose 199 H 186 H Lactic Acid Calcium Phosphorus Magnesium Direct Bilirubin ALT Alkaline Phosphatase Troponin T C-Reactive Protein Total Protein Albumin Triglycerides Cholesterol LDL Cholesterol Direct HDL Cholesterol Urine WBC (Auto) Urine Creatinine Urine Total Protein Vancomycin Trough Rheumatoid Factor Complement C4 Miscellaneous Test Crossmatch See Detail 09/11/16 09/11/16 09/11/16 05:10 05:10 05:17 WBC 28.4 H RBC Hgb 9.2 L Hct 29.3 L D MCV 73 L MCH 23 L MCHC RDW 18.9 H Plt Count 452 H Lymph % (Auto) [place] % (Auto) Lymph # [place] # Baso # Seg Neutrophils % Seg Neuts % (Manual) 89.5 H Lymphocytes % (Manual) 2.0 L Monocytes % (Manual) Eosinophils % (Manual) Basophils % (Manual) Nucleated RBC % Seg Neutrophils # Seg Neutrophils # Man 25.4 H Lymphocytes # (Manual) 0.6 L Monocytes # (Manual) 1.3 H Eosinophils # (Manual) PT INR Fibrinogen dRVVT Confirm Interp Factor V Activity POC ABG pH POC ABG pCO2 POC ABG pO2 Sodium 136 L Potassium Chloride Carbon Dioxide 18 L BUN 107 H Creatinine 2.6 H Glucose 187 H POC Glucose 230 H Lactic Acid Calcium 8.3 L Phosphorus Magnesium Direct Bilirubin ALT Alkaline Phosphatase Troponin T C-Reactive Protein Total Protein Albumin Triglycerides Cholesterol LDL Cholesterol Direct HDL Cholesterol Urine WBC (Auto) Urine Creatinine Urine Total Protein Vancomycin Trough Rheumatoid Factor Complement C4 Miscellaneous Test Crossmatch 09/11/16 09/11/16 09/11/16 05:55 12:02 17:32 WBC RBC Hgb Hct MCV MCH MCHC RDW Plt Count Lymph % (Auto) [place] % (Auto) Lymph # [place] # Baso # Seg Neutrophils % Seg Neuts % (Manual) Lymphocytes % (Manual) Monocytes % (Manual) Eosinophils % (Manual) Basophils % (Manual) Nucleated RBC % Seg Neutrophils # Seg Neutrophils # Man Lymphocytes # (Manual) Monocytes # (Manual) Eosinophils # (Manual) PT INR Fibrinogen dRVVT Confirm Interp Factor V Activity POC ABG pH POC ABG pCO2 33.8 L POC ABG pO2 Sodium Potassium Chloride Carbon Dioxide BUN Creatinine Glucose POC Glucose 191 H 239 H Lactic Acid Calcium Phosphorus Magnesium Direct Bilirubin ALT Alkaline Phosphatase Troponin T C-Reactive Protein Total Protein Albumin Triglycerides Cholesterol LDL Cholesterol Direct HDL Cholesterol Urine WBC (Auto) Urine Creatinine Urine Total Protein Vancomycin Trough Rheumatoid Factor Complement C4 Miscellaneous Test Crossmatch 09/11/16 09/12/16 09/12/16 23:52 05:09 05:32 WBC RBC Hgb Hct MCV MCH MCHC RDW Plt Count Lymph % (Auto) [place] % (Auto) Lymph # [place] # Baso # Seg Neutrophils % Seg Neuts % (Manual) Lymphocytes % (Manual) Monocytes % (Manual) Eosinophils % (Manual) Basophils % (Manual) Nucleated RBC % Seg Neutrophils # Seg Neutrophils # Man Lymphocytes # (Manual) Monocytes # (Manual) Eosinophils # (Manual) PT INR Fibrinogen dRVVT Confirm Interp Factor V Activity POC ABG pH POC ABG pCO2 34.6 L POC ABG pO2 Sodium Potassium Chloride Carbon Dioxide BUN Creatinine Glucose POC Glucose 265 H 184 H Lactic Acid Calcium Phosphorus Magnesium Direct Bilirubin ALT Alkaline Phosphatase Troponin T C-Reactive Protein Total Protein Albumin Triglycerides Cholesterol LDL Cholesterol Direct HDL Cholesterol Urine WBC (Auto) Urine Creatinine Urine Total Protein Vancomycin Trough Rheumatoid Factor Complement C4 Miscellaneous Test Crossmatch 09/12/16 09/12/16 09/12/16 06:45 06:45 07:22 WBC 31.7 H RBC 3.54 L Hgb 8.3 L Hct 25.9 L MCV 73 L MCH 23 L MCHC RDW 18.9 H Plt Count Lymph % (Auto) [place] % (Auto) Lymph # [place] # Baso # Seg Neutrophils % Seg Neuts % (Manual) 88.5 H Lymphocytes % (Manual) 4.5 L Monocytes % (Manual) Eosinophils % (Manual) Basophils % (Manual) Nucleated RBC % Seg Neutrophils # Seg Neutrophils # Man 28.1 H Lymphocytes # (Manual) Monocytes # (Manual) 1.0 H Eosinophils # (Manual) PT INR Fibrinogen dRVVT Confirm Interp Factor V Activity POC ABG pH POC ABG pCO2 POC ABG pO2 Sodium Potassium Chloride Carbon Dioxide 20 L BUN 115 H Creatinine 2.7 H Glucose 165 H POC Glucose Lactic Acid Calcium 8.0 L Phosphorus Magnesium Direct Bilirubin ALT Alkaline Phosphatase Troponin T C-Reactive Protein Total Protein Albumin Triglycerides 217 H Cholesterol LDL Cholesterol Direct HDL Cholesterol Urine WBC (Auto) Urine Creatinine Urine Total Protein Vancomycin Trough Rheumatoid Factor Complement C4 Miscellaneous Test Crossmatch 09/12/16 09/12/16 09/12/16 07:22 09:59 12:21 WBC RBC Hgb Hct MCV MCH MCHC RDW Plt Count Lymph % (Auto) [place] % (Auto) Lymph # [place] # Baso # Seg Neutrophils % Seg Neuts % (Manual) Lymphocytes % (Manual) Monocytes % (Manual) Eosinophils % (Manual) Basophils % (Manual) Nucleated RBC % Seg Neutrophils # Seg Neutrophils # Man Lymphocytes # (Manual) Monocytes # (Manual) Eosinophils # (Manual) PT INR Fibrinogen dRVVT Confirm Interp Positive H Factor V Activity POC ABG pH POC ABG pCO2 POC ABG pO2 Sodium Potassium Chloride Carbon Dioxide BUN Creatinine Glucose POC Glucose 224 H Lactic Acid Calcium Phosphorus Magnesium Direct Bilirubin ALT Alkaline Phosphatase Troponin T C-Reactive Protein 1.70 H Total Protein Albumin Triglycerides Cholesterol LDL Cholesterol Direct HDL Cholesterol Urine WBC (Auto) Urine Creatinine Urine Total Protein Vancomycin Trough Rheumatoid Factor Complement C4 Miscellaneous Test Crossmatch 09/12/16 09/12/16 09/13/16 16:51 23:28 04:00 WBC 45.0 H* RBC Hgb 9.4 L Hct MCV 75 L MCH 23 L MCHC RDW 19.0 H Plt Count 470 H Lymph % (Auto) [place] % (Auto) Lymph # [place] # Baso # Seg Neutrophils % Seg Neuts % (Manual) 89.0 H Lymphocytes % (Manual) 5.0 L Monocytes % (Manual) Eosinophils % (Manual) Basophils % (Manual) Nucleated RBC % Seg Neutrophils # Seg Neutrophils # Man 40.1 H Lymphocytes # (Manual) Monocytes # (Manual) Eosinophils # (Manual) PT INR Fibrinogen dRVVT Confirm Interp Factor V Activity POC ABG pH POC ABG pCO2 POC ABG pO2 Sodium Potassium Chloride Carbon Dioxide BUN Creatinine Glucose POC Glucose 169 H 150 H Lactic Acid Calcium Phosphorus Magnesium Direct Bilirubin ALT Alkaline Phosphatase Troponin T C-Reactive Protein Total Protein Albumin Triglycerides Cholesterol LDL Cholesterol Direct HDL Cholesterol Urine WBC (Auto) Urine Creatinine Urine Total Protein Vancomycin Trough Rheumatoid Factor Complement C4 Miscellaneous Test Crossmatch 09/13/16 09/13/16 09/13/16 04:00 11:26 17:31 WBC RBC Hgb Hct MCV MCH MCHC RDW Plt Count Lymph % (Auto) [place] % (Auto) Lymph # [place] # Baso # Seg Neutrophils % Seg Neuts % (Manual) Lymphocytes % (Manual) Monocytes % (Manual) Eosinophils % (Manual) Basophils % (Manual) Nucleated RBC % Seg Neutrophils # Seg Neutrophils # Man Lymphocytes # (Manual) Monocytes # (Manual) Eosinophils # (Manual) PT INR Fibrinogen dRVVT Confirm Interp Factor V Activity POC ABG pH POC ABG pCO2 POC ABG pO2 Sodium Potassium Chloride Carbon Dioxide 20 L BUN 116 H Creatinine 3.0 H Glucose 172 H POC Glucose 140 H 183 H Lactic Acid Calcium Phosphorus Magnesium Direct Bilirubin ALT Alkaline Phosphatase Troponin T C-Reactive Protein Total Protein 6.2 L Albumin 2.9 L Triglycerides Cholesterol LDL Cholesterol Direct HDL Cholesterol Urine WBC (Auto) Urine Creatinine Urine Total Protein Vancomycin Trough Rheumatoid Factor Complement C4 Miscellaneous Test Crossmatch 09/13/16 09/14/16 09/14/16 23:23 04:06 04:07 WBC 29.4 H RBC Hgb 8.9 L Hct 27.3 L MCV 75 L MCH 24 L MCHC RDW 19.1 H Plt Count Lymph % (Auto) [place] % (Auto) Lymph # [place] # Baso # Seg Neutrophils % Seg Neuts % (Manual) 84.0 H Lymphocytes % (Manual) 6.0 L Monocytes % (Manual) 9.0 H Eosinophils % (Manual) Basophils % (Manual) Nucleated RBC % Seg Neutrophils # Seg Neutrophils # Man 24.7 H Lymphocytes # (Manual) Monocytes # (Manual) 2.6 H Eosinophils # (Manual) PT INR Fibrinogen dRVVT Confirm Interp Factor V Activity POC ABG pH 7.342 L POC ABG pCO2 POC ABG pO2 116 H Sodium Potassium Chloride Carbon Dioxide BUN Creatinine Glucose POC Glucose 154 H Lactic Acid Calcium Phosphorus Magnesium Direct Bilirubin ALT Alkaline Phosphatase Troponin T C-Reactive Protein Total Protein Albumin Triglycerides Cholesterol LDL Cholesterol Direct HDL Cholesterol Urine WBC (Auto) Urine Creatinine Urine Total Protein Vancomycin Trough Rheumatoid Factor Complement C4 Miscellaneous Test Crossmatch 09/14/16 09/14/16 09/14/16 04:07 05:29 12:19 WBC RBC Hgb Hct MCV MCH MCHC RDW Plt Count Lymph % (Auto) [place] % (Auto) Lymph # [place] # Baso # Seg Neutrophils % Seg Neuts % (Manual) Lymphocytes % (Manual) Monocytes % (Manual) Eosinophils % (Manual) Basophils % (Manual) Nucleated RBC % Seg Neutrophils # Seg Neutrophils # Man Lymphocytes # (Manual) Monocytes # (Manual) Eosinophils # (Manual) PT INR Fibrinogen dRVVT Confirm Interp Factor V Activity POC ABG pH POC ABG pCO2 POC ABG pO2 Sodium 136 L Potassium Chloride Carbon Dioxide 18 L BUN 121 H Creatinine 2.8 H Glucose 214 H POC Glucose 239 H 181 H Lactic Acid Calcium Phosphorus Magnesium Direct Bilirubin ALT Alkaline Phosphatase Troponin T C-Reactive Protein Total Protein Albumin Triglycerides Cholesterol LDL Cholesterol Direct HDL Cholesterol Urine WBC (Auto) Urine Creatinine Urine Total Protein Vancomycin Trough Rheumatoid Factor Complement C4 Miscellaneous Test Crossmatch 09/14/16 09/14/16 09/15/16 18:12 23:37 05:00 WBC 26.1 H RBC 3.05 L Hgb 7.2 L Hct 22.9 L MCV 75 L MCH 24 L MCHC RDW 19.0 H Plt Count Lymph % (Auto) [place] % (Auto) Lymph # [place] # Baso # Seg Neutrophils % Seg Neuts % (Manual) Lymphocytes % (Manual) Monocytes % (Manual) Eosinophils % (Manual) Basophils % (Manual) Nucleated RBC % Seg Neutrophils # Seg Neutrophils # Man Lymphocytes # (Manual) Monocytes # (Manual) Eosinophils # (Manual) PT INR Fibrinogen dRVVT Confirm Interp Factor V Activity POC ABG pH POC ABG pCO2 POC ABG pO2 Sodium Potassium Chloride Carbon Dioxide BUN Creatinine Glucose POC Glucose 266 H 154 H Lactic Acid Calcium Phosphorus Magnesium Direct Bilirubin ALT Alkaline Phosphatase Troponin T C-Reactive Protein Total Protein Albumin Triglycerides Cholesterol LDL Cholesterol Direct HDL Cholesterol Urine WBC (Auto) Urine Creatinine Urine Total Protein Vancomycin Trough Rheumatoid Factor Complement C4 Miscellaneous Test Crossmatch 09/15/16 09/15/16 09/15/16 05:00 05:17 12:45 WBC RBC Hgb Hct MCV MCH MCHC RDW Plt Count Lymph % (Auto) [place] % (Auto) Lymph # [place] # Baso # Seg Neutrophils % Seg Neuts % (Manual) Lymphocytes % (Manual) Monocytes % (Manual) Eosinophils % (Manual) Basophils % (Manual) Nucleated RBC % Seg Neutrophils # Seg Neutrophils # Man Lymphocytes # (Manual) Monocytes # (Manual) Eosinophils # (Manual) PT INR Fibrinogen dRVVT Confirm Interp Factor V Activity POC ABG pH POC ABG pCO2 POC ABG pO2 Sodium Potassium 5.2 H Chloride Carbon Dioxide 18 L BUN 139 H Creatinine 3.7 H Glucose 227 H POC Glucose 226 H 244 H Lactic Acid Calcium 8.3 L Phosphorus Magnesium Direct Bilirubin ALT Alkaline Phosphatase Troponin T C-Reactive Protein Total Protein Albumin Triglycerides Cholesterol LDL Cholesterol Direct HDL Cholesterol Urine WBC (Auto) Urine Creatinine Urine Total Protein Vancomycin Trough Rheumatoid Factor Complement C4 Miscellaneous Test Crossmatch 09/15/16 09/15/16 09/15/16 14:32 17:33 23:35 WBC RBC Hgb Hct MCV MCH MCHC RDW Plt Count Lymph % (Auto) [place] % (Auto) Lymph # [place] # Baso # Seg Neutrophils % Seg Neuts % (Manual) Lymphocytes % (Manual) Monocytes % (Manual) Eosinophils % (Manual) Basophils % (Manual) Nucleated RBC % Seg Neutrophils # Seg Neutrophils # Man Lymphocytes # (Manual) Monocytes # (Manual) Eosinophils # (Manual) PT INR Fibrinogen dRVVT Confirm Interp Factor V Activity POC ABG pH POC ABG pCO2 27.7 L POC ABG pO2 120 H Sodium Potassium Chloride Carbon Dioxide BUN Creatinine Glucose POC Glucose 232 H 167 H Lactic Acid Calcium Phosphorus Magnesium Direct Bilirubin ALT Alkaline Phosphatase Troponin T C-Reactive Protein Total Protein Albumin Triglycerides Cholesterol LDL Cholesterol Direct HDL Cholesterol Urine WBC (Auto) Urine Creatinine Urine Total Protein Vancomycin Trough Rheumatoid Factor Complement C4 Miscellaneous Test Crossmatch 09/16/16 09/16/16 09/16/16 03:58 10:27 10:27 WBC 19.0 H RBC 2.77 L Hgb 6.5 L Hct 20.9 L MCV 76 L MCH 23 L MCHC RDW 19.3 H Plt Count Lymph % (Auto) 11.0 L [place] % (Auto) Lymph # [place] # 1.1 H Baso # Seg Neutrophils % 82.5 H Seg Neuts % (Manual) Lymphocytes % (Manual) Monocytes % (Manual) Eosinophils % (Manual) Basophils % (Manual) Nucleated RBC % Seg Neutrophils # 15.7 H Seg Neutrophils # Man Lymphocytes # (Manual) Monocytes # (Manual) Eosinophils # (Manual) PT INR Fibrinogen dRVVT Confirm Interp Factor V Activity POC ABG pH POC ABG pCO2 POC ABG pO2 Sodium Potassium Chloride 109.3 H Carbon Dioxide 18 L BUN 139 H Creatinine 4.1 H Glucose 144 H POC Glucose 146 H Lactic Acid Calcium 8.1 L Phosphorus Magnesium Direct Bilirubin ALT Alkaline Phosphatase Troponin T C-Reactive Protein Total Protein Albumin Triglycerides Cholesterol LDL Cholesterol Direct HDL Cholesterol Urine WBC (Auto) Urine Creatinine Urine Total Protein Vancomycin Trough Rheumatoid Factor Complement C4 Miscellaneous Test Crossmatch 09/16/16 09/16/1617 12:04 12:10 13:55 WBC RBC Hgb Hct MCV MCH MCHC RDW Plt Count Lymph % (Auto) [place] % (Auto) Lymph # [place] # Baso # Seg Neutrophils % Seg Neuts % (Manual) Lymphocytes % (Manual) Monocytes % (Manual) Eosinophils % (Manual) Basophils % (Manual) Nucleated RBC % Seg Neutrophils # Seg Neutrophils # Man Lymphocytes # (Manual) Monocytes # (Manual) Eosinophils # (Manual) PT INR Fibrinogen dRVVT Confirm Interp Factor V Activity POC ABG pH POC ABG pCO2 32.9 L POC ABG pO2 Sodium Potassium Chloride Carbon Dioxide BUN Creatinine Glucose POC Glucose 185 H Lactic Acid Calcium Phosphorus Magnesium Direct Bilirubin ALT Alkaline Phosphatase Troponin T C-Reactive Protein Total Protein Albumin Triglycerides Cholesterol LDL Cholesterol Direct HDL Cholesterol Urine WBC (Auto) Urine Creatinine Urine Total Protein Vancomycin Trough Rheumatoid Factor Complement C4 Miscellaneous Test Crossmatch See Detail 09/16/16 09/16/16 09/16/16 17:55 19:19 23:48 WBC RBC Hgb Hct MCV MCH MCHC RDW Plt Count Lymph % (Auto) [place] % (Auto) Lymph # [place] # Baso # Seg Neutrophils % Seg Neuts % (Manual) Lymphocytes % (Manual) Monocytes % (Manual) Eosinophils % (Manual) Basophils % (Manual) Nucleated RBC % Seg Neutrophils # Seg Neutrophils # Man Lymphocytes # (Manual) Monocytes # (Manual) Eosinophils # (Manual) PT INR Fibrinogen dRVVT Confirm Interp Factor V Activity POC ABG pH POC ABG pCO2 POC ABG pO2 Sodium Potassium Chloride Carbon Dioxide BUN Creatinine Glucose POC Glucose 222 H 107 H Lactic Acid Calcium Phosphorus Magnesium Direct Bilirubin ALT Alkaline Phosphatase Troponin T C-Reactive Protein Total Protein Albumin Triglycerides Cholesterol LDL Cholesterol Direct HDL Cholesterol Urine WBC (Auto) Urine Creatinine 47.4 H Urine Total Protein 16 H Vancomycin Trough Rheumatoid Factor Complement C4 Miscellaneous Test Crossmatch 09/17/16 09/17/16 09/17/16 03:45 03:45 04:55 WBC 19.6 H RBC 3.41 L Hgb 8.5 L Hct 26.7 L MCV 78 L MCH 25 L MCHC RDW 19.9 H Plt Count Lymph % (Auto) 9.3 L [place] % (Auto) Lymph # [place] # 1.2 H Baso # Seg Neutrophils % 83.9 H Seg Neuts % (Manual) Lymphocytes % (Manual) Monocytes % (Manual) Eosinophils % (Manual) Basophils % (Manual) Nucleated RBC % Seg Neutrophils # 16.4 H Seg Neutrophils # Man Lymphocytes # (Manual) Monocytes # (Manual) Eosinophils # (Manual) PT INR Fibrinogen dRVVT Confirm Interp Factor V Activity POC ABG pH POC ABG pCO2 POC ABG pO2 Sodium 146 H Potassium 5.1 H Chloride 110.9 H Carbon Dioxide 16 L BUN 146 H Creatinine 4.0 H Glucose 108 H POC Glucose 133 H Lactic Acid Calcium Phosphorus Magnesium 3.00 H Direct Bilirubin ALT Alkaline Phosphatase Troponin T C-Reactive Protein Total Protein Albumin Triglycerides Cholesterol LDL Cholesterol Direct HDL Cholesterol Urine WBC (Auto) Urine Creatinine Urine Total Protein Vancomycin Trough Rheumatoid Factor Complement C4 Miscellaneous Test Crossmatch 09/17/16 09/17/16 09/17/16 11:15 17:33 23:47 WBC RBC Hgb Hct MCV MCH MCHC RDW Plt Count Lymph % (Auto) [place] % (Auto) Lymph # [place] # Baso # Seg Neutrophils % Seg Neuts % (Manual) Lymphocytes % (Manual) Monocytes % (Manual) Eosinophils % (Manual) Basophils % (Manual) Nucleated RBC % Seg Neutrophils # Seg Neutrophils # Man Lymphocytes # (Manual) Monocytes # (Manual) Eosinophils # (Manual) PT INR Fibrinogen dRVVT Confirm Interp Factor V Activity POC ABG pH POC ABG pCO2 POC ABG pO2 Sodium Potassium Chloride Carbon Dioxide BUN Creatinine Glucose POC Glucose 176 H 246 H 148 H Lactic Acid Calcium Phosphorus Magnesium Direct Bilirubin ALT Alkaline Phosphatase Troponin T C-Reactive Protein Total Protein Albumin Triglycerides Cholesterol LDL Cholesterol Direct HDL Cholesterol Urine WBC (Auto) Urine Creatinine Urine Total Protein Vancomycin Trough Rheumatoid Factor Complement C4 Miscellaneous Test Crossmatch 09/18/16 09/18/16 09/18/16 05:33 08:31 08:31 WBC 18.0 H RBC 3.17 L Hgb 9.0 L Hct 25.7 L MCV MCH MCHC 35 H RDW 20.4 H Plt Count Lymph % (Auto) [place] % (Auto) Lymph # [place] # Baso # Seg Neutrophils % Seg Neuts % (Manual) Lymphocytes % (Manual) Monocytes % (Manual) Eosinophils % (Manual) Basophils % (Manual) Nucleated RBC % Seg Neutrophils # Seg Neutrophils # Man Lymphocytes # (Manual) Monocytes # (Manual) Eosinophils # (Manual) PT INR Fibrinogen dRVVT Confirm Interp Factor V Activity POC ABG pH POC ABG pCO2 POC ABG pO2 Sodium Potassium Chloride Carbon Dioxide 15 L BUN 124 H Creatinine 3.8 H Glucose POC Glucose 120 H Lactic Acid Calcium 8.1 L Phosphorus Magnesium Direct Bilirubin ALT Alkaline Phosphatase Troponin T C-Reactive Protein Total Protein Albumin Triglycerides Cholesterol LDL Cholesterol Direct HDL Cholesterol Urine WBC (Auto) Urine Creatinine Urine Total Protein Vancomycin Trough Rheumatoid Factor Complement C4 Miscellaneous Test Crossmatch 09/18/16 09/18/16 09/18/16 12:03 15:34 17:50 WBC RBC Hgb Hct MCV MCH MCHC RDW Plt Count Lymph % (Auto) [place] % (Auto) Lymph # [place] # Baso # Seg Neutrophils % Seg Neuts % (Manual) Lymphocytes % (Manual) Monocytes % (Manual) Eosinophils % (Manual) Basophils % (Manual) Nucleated RBC % Seg Neutrophils # Seg Neutrophils # Man Lymphocytes # (Manual) Monocytes # (Manual) Eosinophils # (Manual) PT INR Fibrinogen dRVVT Confirm Interp Factor V Activity POC ABG pH POC ABG pCO2 25.7 L POC ABG pO2 66 L Sodium Potassium Chloride Carbon Dioxide BUN Creatinine Glucose POC Glucose 156 H 220 H Lactic Acid Calcium Phosphorus Magnesium Direct Bilirubin ALT Alkaline Phosphatase Troponin T C-Reactive Protein Total Protein Albumin Triglycerides Cholesterol LDL Cholesterol Direct HDL Cholesterol Urine WBC (Auto) Urine Creatinine Urine Total Protein Vancomycin Trough Rheumatoid Factor Complement C4 Miscellaneous Test Crossmatch 09/19/16 09/19/16 09/19/16 06:21 09:50 09:50 WBC 17.1 H RBC 3.49 L Hgb 9.0 L Hct 28.1 L MCV MCH 26 L MCHC RDW 20.8 H Plt Count Lymph % (Auto) 11.5 L [place] % (Auto) 7.5 H Lymph # [place] # 1.3 H Baso # Seg Neutrophils % 79.8 H Seg Neuts % (Manual) Lymphocytes % (Manual) Monocytes % (Manual) Eosinophils % (Manual) Basophils % (Manual) Nucleated RBC % Seg Neutrophils # 13.7 H Seg Neutrophils # Man Lymphocytes # (Manual) Monocytes # (Manual) Eosinophils # (Manual) PT INR Fibrinogen dRVVT Confirm Interp Factor V Activity POC ABG pH POC ABG pCO2 POC ABG pO2 Sodium Potassium Chloride 108.6 H Carbon Dioxide 15 L BUN 125 H Creatinine 4.1 H Glucose 124 H POC Glucose 119 H Lactic Acid Calcium Phosphorus Magnesium Direct Bilirubin ALT Alkaline Phosphatase Troponin T C-Reactive Protein Total Protein Albumin Triglycerides Cholesterol LDL Cholesterol Direct HDL Cholesterol Urine WBC (Auto) Urine Creatinine Urine Total Protein Vancomycin Trough Rheumatoid Factor Complement C4 Miscellaneous Test Crossmatch 09/19/16 09/19/16 09/19/16 11:25 17:53 23:36 WBC RBC Hgb Hct MCV MCH MCHC RDW Plt Count Lymph % (Auto) [place] % (Auto) Lymph # [place] # Baso # Seg Neutrophils % Seg Neuts % (Manual) Lymphocytes % (Manual) Monocytes % (Manual) Eosinophils % (Manual) Basophils % (Manual) Nucleated RBC % Seg Neutrophils # Seg Neutrophils # Man Lymphocytes # (Manual) Monocytes # (Manual) Eosinophils # (Manual) PT INR Fibrinogen dRVVT Confirm Interp Factor V Activity POC ABG pH POC ABG pCO2 POC ABG pO2 Sodium Potassium Chloride Carbon Dioxide BUN Creatinine Glucose POC Glucose 160 H 245 H 121 H Lactic Acid Calcium Phosphorus Magnesium Direct Bilirubin ALT Alkaline Phosphatase Troponin T C-Reactive Protein Total Protein Albumin Triglycerides Cholesterol LDL Cholesterol Direct HDL Cholesterol Urine WBC (Auto) Urine Creatinine Urine Total Protein Vancomycin Trough Rheumatoid Factor Complement C4 Miscellaneous Test Crossmatch 09/20/16 09/20/16 09/20/16 04:10 04:10 04:10 WBC 17.0 H RBC 3.21 L Hgb 8.2 L Hct 25.5 L MCV MCH 26 L MCHC RDW 20.9 H Plt Count Lymph % (Auto) [place] % (Auto) Lymph # [place] # Baso # Seg Neutrophils % Seg Neuts % (Manual) Lymphocytes % (Manual) Monocytes % (Manual) Eosinophils % (Manual) Basophils % (Manual) Nucleated RBC % Seg Neutrophils # Seg Neutrophils # Man Lymphocytes # (Manual) Monocytes # (Manual) Eosinophils # (Manual) PT INR Fibrinogen dRVVT Confirm Interp Factor V Activity POC ABG pH POC ABG pCO2 POC ABG pO2 Sodium Potassium Chloride 111.0 H Carbon Dioxide 16 L BUN 129 H Creatinine 3.7 H Glucose 115 H POC Glucose Lactic Acid Calcium 8.2 L Phosphorus Magnesium Direct Bilirubin ALT Alkaline Phosphatase Troponin T C-Reactive Protein Total Protein Albumin Triglycerides 243 H Cholesterol LDL Cholesterol Direct HDL Cholesterol Urine WBC (Auto) Urine Creatinine Urine Total Protein Vancomycin Trough Rheumatoid Factor Complement C4 Miscellaneous Test Crossmatch 09/20/16 09/20/16 09/20/16 05:40 11:52 16:50 WBC RBC Hgb Hct MCV MCH MCHC RDW Plt Count Lymph % (Auto) [place] % (Auto) Lymph # [place] # Baso # Seg Neutrophils % Seg Neuts % (Manual) Lymphocytes % (Manual) Monocytes % (Manual) Eosinophils % (Manual) Basophils % (Manual) Nucleated RBC % Seg Neutrophils # Seg Neutrophils # Man Lymphocytes # (Manual) Monocytes # (Manual) Eosinophils # (Manual) PT INR Fibrinogen dRVVT Confirm Interp Factor V Activity POC ABG pH POC ABG pCO2 POC ABG pO2 Sodium Potassium Chloride Carbon Dioxide BUN Creatinine Glucose POC Glucose 131 H 183 H 236 H Lactic Acid Calcium Phosphorus Magnesium Direct Bilirubin ALT Alkaline Phosphatase Troponin T C-Reactive Protein Total Protein Albumin Triglycerides Cholesterol LDL Cholesterol Direct HDL Cholesterol Urine WBC (Auto) Urine Creatinine Urine Total Protein Vancomycin Trough Rheumatoid Factor Complement C4 Miscellaneous Test Crossmatch 09/20/16 09/21/16 09/21/16 23:51 03:30 04:44 WBC RBC Hgb Hct MCV MCH MCHC RDW Plt Count Lymph % (Auto) [place] % (Auto) Lymph # [place] # Baso # Seg Neutrophils % Seg Neuts % (Manual) Lymphocytes % (Manual) Monocytes % (Manual) Eosinophils % (Manual) Basophils % (Manual) Nucleated RBC % Seg Neutrophils # Seg Neutrophils # Man Lymphocytes # (Manual) Monocytes # (Manual) Eosinophils # (Manual) PT INR Fibrinogen dRVVT Confirm Interp Factor V Activity POC ABG pH POC ABG pCO2 POC ABG pO2 Sodium Potassium Chloride Carbon Dioxide BUN Creatinine Glucose POC Glucose 114 H 141 H Lactic Acid Calcium Phosphorus Magnesium 2.70 H Direct Bilirubin ALT Alkaline Phosphatase Troponin T C-Reactive Protein Total Protein Albumin Triglycerides Cholesterol LDL Cholesterol Direct HDL Cholesterol Urine WBC (Auto) Urine Creatinine Urine Total Protein Vancomycin Trough Rheumatoid Factor Complement C4 Miscellaneous Test Crossmatch 09/21/16 09/21/16 09/21/16 07:45 07:45 10:01 WBC 13.8 H RBC 2.94 L Hgb 7.5 L Hct 23.5 L MCV MCH 26 L MCHC RDW 21.2 H Plt Count Lymph % (Auto) 6.9 L [place] % (Auto) 9.4 H Lymph # 0.9 L [place] # 1.3 H Baso # Seg Neutrophils % 83.2 H Seg Neuts % (Manual) Lymphocytes % (Manual) Monocytes % (Manual) Eosinophils % (Manual) Basophils % (Manual) Nucleated RBC % Seg Neutrophils # 11.5 H Seg Neutrophils # Man Lymphocytes # (Manual) Monocytes # (Manual) Eosinophils # (Manual) PT INR Fibrinogen dRVVT Confirm Interp Factor V Activity POC ABG pH 7.308 L POC ABG pCO2 31.9 L POC ABG pO2 148 H Sodium 147 H Potassium Chloride 114.2 H Carbon Dioxide 15 L BUN 120 H Creatinine 3.9 H Glucose 156 H POC Glucose Lactic Acid Calcium 8.2 L Phosphorus Magnesium Direct Bilirubin ALT Alkaline Phosphatase Troponin T C-Reactive Protein Total Protein Albumin Triglycerides Cholesterol LDL Cholesterol Direct HDL Cholesterol Urine WBC (Auto) Urine Creatinine Urine Total Protein Vancomycin Trough Rheumatoid Factor Complement C4 Miscellaneous Test Crossmatch 09/21/16 09/21/16 09/21/16 12:00 12:03 13:00 WBC RBC Hgb Hct MCV MCH MCHC RDW Plt Count Lymph % (Auto) [place] % (Auto) Lymph # [place] # Baso # Seg Neutrophils % Seg Neuts % (Manual) Lymphocytes % (Manual) Monocytes % (Manual) Eosinophils % (Manual) Basophils % (Manual) Nucleated RBC % Seg Neutrophils # Seg Neutrophils # Man Lymphocytes # (Manual) Monocytes # (Manual) Eosinophils # (Manual) PT INR Fibrinogen dRVVT Confirm Interp Factor V Activity POC ABG pH POC ABG pCO2 POC ABG pO2 Sodium Potassium Chloride Carbon Dioxide BUN Creatinine Glucose POC Glucose 163 H Lactic Acid Calcium Phosphorus Magnesium Direct Bilirubin ALT Alkaline Phosphatase Troponin T C-Reactive Protein Total Protein Albumin Triglycerides Cholesterol LDL Cholesterol Direct HDL Cholesterol Urine WBC (Auto) Urine Creatinine 54.8 H Urine Total Protein Vancomycin Trough 2.3 L Rheumatoid Factor Complement C4 Miscellaneous Test Crossmatch 09/21/16 09/21/16 09/22/16 16:51 23:17 06:27 WBC RBC Hgb Hct MCV MCH MCHC RDW Plt Count Lymph % (Auto) [place] % (Auto) Lymph # [place] # Baso # Seg Neutrophils % Seg Neuts % (Manual) Lymphocytes % (Manual) Monocytes % (Manual) Eosinophils % (Manual) Basophils % (Manual) Nucleated RBC % Seg Neutrophils # Seg Neutrophils # Man Lymphocytes # (Manual) Monocytes # (Manual) Eosinophils # (Manual) PT INR Fibrinogen dRVVT Confirm Interp Factor V Activity POC ABG pH POC ABG pCO2 POC ABG pO2 Sodium Potassium Chloride Carbon Dioxide BUN Creatinine Glucose POC Glucose 206 H 114 H 115 H Lactic Acid Calcium Phosphorus Magnesium Direct Bilirubin ALT Alkaline Phosphatase Troponin T C-Reactive Protein Total Protein Albumin Triglycerides Cholesterol LDL Cholesterol Direct HDL Cholesterol Urine WBC (Auto) Urine Creatinine Urine Total Protein Vancomycin Trough Rheumatoid Factor Complement C4 Miscellaneous Test Crossmatch 09/22/16 09/22/16 09/22/16 07:50 07:50 12:00 WBC 17.8 H RBC 3.04 L Hgb 8.0 L Hct 24.7 L MCV MCH 26 L MCHC RDW 21.6 H Plt Count Lymph % (Auto) [place] % (Auto) Lymph # [place] # Baso # Seg Neutrophils % Seg Neuts % (Manual) Lymphocytes % (Manual) Monocytes % (Manual) Eosinophils % (Manual) Basophils % (Manual) Nucleated RBC % Seg Neutrophils # Seg Neutrophils # Man Lymphocytes # (Manual) Monocytes # (Manual) Eosinophils # (Manual) PT INR Fibrinogen dRVVT Confirm Interp Factor V Activity POC ABG pH POC ABG pCO2 POC ABG pO2 Sodium 150 H Potassium Chloride 118.2 H Carbon Dioxide 14 L BUN 111 H Creatinine 3.7 H Glucose 157 H POC Glucose 183 H Lactic Acid Calcium Phosphorus Magnesium Direct Bilirubin ALT Alkaline Phosphatase Troponin T C-Reactive Protein Total Protein Albumin Triglycerides Cholesterol LDL Cholesterol Direct HDL Cholesterol Urine WBC (Auto) Urine Creatinine Urine Total Protein Vancomycin Trough Rheumatoid Factor Complement C4 Miscellaneous Test Crossmatch 09/22/16 09/22/16 09/23/16 17:29 23:10 05:00 WBC 19.2 H RBC 3.13 L Hgb 8.0 L Hct 25.2 L MCV MCH 26 L MCHC RDW 22.1 H Plt Count Lymph % (Auto) [place] % (Auto) Lymph # [place] # Baso # Seg Neutrophils % Seg Neuts % (Manual) 92.0 H Lymphocytes % (Manual) 3.0 L Monocytes % (Manual) Eosinophils % (Manual) Basophils % (Manual) Nucleated RBC % Seg Neutrophils # Seg Neutrophils # Man 17.7 H Lymphocytes # (Manual) 0.6 L Monocytes # (Manual) Eosinophils # (Manual) PT INR Fibrinogen dRVVT Confirm Interp Factor V Activity POC ABG pH POC ABG pCO2 POC ABG pO2 Sodium Potassium Chloride Carbon Dioxide BUN Creatinine Glucose POC Glucose 197 H 169 H Lactic Acid Calcium Phosphorus Magnesium Direct Bilirubin ALT Alkaline Phosphatase Troponin T C-Reactive Protein Total Protein Albumin Triglycerides Cholesterol LDL Cholesterol Direct HDL Cholesterol Urine WBC (Auto) Urine Creatinine Urine Total Protein Vancomycin Trough Rheumatoid Factor Complement C4 Miscellaneous Test Crossmatch 08/06/0609/23/16 09/23/16 05:00 05:00 05:10 WBC RBC Hgb Hct MCV MCH MCHC RDW Plt Count Lymph % (Auto) [place] % (Auto) Lymph # [place] # Baso # Seg Neutrophils % Seg Neuts % (Manual) Lymphocytes % (Manual) Monocytes % (Manual) Eosinophils % (Manual) Basophils % (Manual) Nucleated RBC % Seg Neutrophils # Seg Neutrophils # Man Lymphocytes # (Manual) Monocytes # (Manual) Eosinophils # (Manual) PT INR Fibrinogen dRVVT Confirm Interp Factor V Activity POC ABG pH POC ABG pCO2 POC ABG pO2 Sodium 147 H Potassium 3.2 L Chloride 115.7 H Carbon Dioxide 13 L BUN 111 H Creatinine 3.8 H Glucose 194 H POC Glucose 188 H Lactic Acid Calcium 7.3 L D Phosphorus Magnesium Direct Bilirubin ALT Alkaline Phosphatase Troponin T C-Reactive Protein 3.20 H Total Protein Albumin Triglycerides Cholesterol LDL Cholesterol Direct HDL Cholesterol Urine WBC (Auto) Urine Creatinine Urine Total Protein Vancomycin Trough Rheumatoid Factor Complement C4 Miscellaneous Test Crossmatch 09/23/16 09/23/16 09/23/16 11:37 12:29 18:01 WBC RBC Hgb Hct MCV MCH MCHC RDW Plt Count Lymph % (Auto) [place] % (Auto) Lymph # [place] # Baso # Seg Neutrophils % Seg Neuts % (Manual) Lymphocytes % (Manual) Monocytes % (Manual) Eosinophils % (Manual) Basophils % (Manual) Nucleated RBC % Seg Neutrophils # Seg Neutrophils # Man Lymphocytes # (Manual) Monocytes # (Manual) Eosinophils # (Manual) PT INR Fibrinogen dRVVT Confirm Interp Factor V Activity POC ABG pH POC ABG pCO2 18.9 L POC ABG pO2 143 H Sodium Potassium Chloride Carbon Dioxide BUN Creatinine Glucose POC Glucose 153 H 108 H Lactic Acid Calcium Phosphorus Magnesium Direct Bilirubin ALT Alkaline Phosphatase Troponin T C-Reactive Protein Total Protein Albumin Triglycerides Cholesterol LDL Cholesterol Direct HDL Cholesterol Urine WBC (Auto) Urine Creatinine Urine Total Protein Vancomycin Trough Rheumatoid Factor Complement C4 Miscellaneous Test Crossmatch 09/23/16 09/23/16 09/24/16 21:19 23:43 05:16 WBC RBC Hgb Hct MCV MCH MCHC RDW Plt Count Lymph % (Auto) [place] % (Auto) Lymph # [place] # Baso # Seg Neutrophils % Seg Neuts % (Manual) Lymphocytes % (Manual) Monocytes % (Manual) Eosinophils % (Manual) Basophils % (Manual) Nucleated RBC % Seg Neutrophils # Seg Neutrophils # Man Lymphocytes # (Manual) Monocytes # (Manual) Eosinophils # (Manual) PT INR Fibrinogen dRVVT Confirm Interp Factor V Activity POC ABG pH POC ABG pCO2 17.3 L POC ABG pO2 112 H Sodium Potassium Chloride Carbon Dioxide BUN Creatinine Glucose POC Glucose 143 H 164 H Lactic Acid Calcium Phosphorus Magnesium Direct Bilirubin ALT Alkaline Phosphatase Troponin T C-Reactive Protein Total Protein Albumin Triglycerides Cholesterol LDL Cholesterol Direct HDL Cholesterol Urine WBC (Auto) Urine Creatinine Urine Total Protein Vancomycin Trough Rheumatoid Factor Complement C4 Miscellaneous Test Crossmatch 09/24/16 09/24/16 09/24/16 05:21 11:58 17:06 WBC RBC Hgb Hct MCV MCH MCHC RDW Plt Count Lymph % (Auto) [place] % (Auto) Lymph # [place] # Baso # Seg Neutrophils % Seg Neuts % (Manual) Lymphocytes % (Manual) Monocytes % (Manual) Eosinophils % (Manual) Basophils % (Manual) Nucleated RBC % Seg Neutrophils # Seg Neutrophils # Man Lymphocytes # (Manual) Monocytes # (Manual) Eosinophils # (Manual) PT INR Fibrinogen dRVVT Confirm Interp Factor V Activity POC ABG pH POC ABG pCO2 POC ABG pO2 Sodium Potassium Chloride Carbon Dioxide 10 L BUN 103 H Creatinine 4.3 H Glucose 163 H POC Glucose 173 H 167 H Lactic Acid Calcium 6.5 L Phosphorus Magnesium Direct Bilirubin ALT Alkaline Phosphatase Troponin T C-Reactive Protein Total Protein Albumin Triglycerides Cholesterol LDL Cholesterol Direct HDL Cholesterol Urine WBC (Auto) Urine Creatinine Urine Total Protein Vancomycin Trough Rheumatoid Factor Complement C4 Miscellaneous Test Crossmatch 09/24/16 09/24/16 09/24/16 20:15 21:02 23:48 WBC RBC Hgb Hct MCV MCH MCHC RDW Plt Count Lymph % (Auto) [place] % (Auto) Lymph # [place] # Baso # Seg Neutrophils % Seg Neuts % (Manual) Lymphocytes % (Manual) Monocytes % (Manual) Eosinophils % (Manual) Basophils % (Manual) Nucleated RBC % Seg Neutrophils # Seg Neutrophils # Man Lymphocytes # (Manual) Monocytes # (Manual) Eosinophils # (Manual) PT INR Fibrinogen dRVVT Confirm Interp Factor V Activity POC ABG pH 7.288 L POC ABG pCO2 30.2 L 21.5 L POC ABG pO2 32 L 39 L Sodium Potassium Chloride Carbon Dioxide BUN Creatinine Glucose POC Glucose 109 H Lactic Acid Calcium Phosphorus Magnesium Direct Bilirubin ALT Alkaline Phosphatase Troponin T C-Reactive Protein Total Protein Albumin Triglycerides Cholesterol LDL Cholesterol Direct HDL Cholesterol Urine WBC (Auto) Urine Creatinine Urine Total Protein Vancomycin Trough Rheumatoid Factor Complement C4 Miscellaneous Test Crossmatch 09/25/16 09/25/16 09/25/16 04:20 04:20 04:20 WBC RBC 2.58 L Hgb 7.0 L Hct 21.0 L MCV MCH 27 L MCHC RDW 23.8 H Plt Count Lymph % (Auto) [place] % (Auto) Lymph # [place] # Baso # Seg Neutrophils % Seg Neuts % (Manual) Lymphocytes % (Manual) 12.0 L Monocytes % (Manual) Eosinophils % (Manual) 7.0 H Basophils % (Manual) 2.0 H Nucleated RBC % Seg Neutrophils # Seg Neutrophils # Man Lymphocytes # (Manual) 0.9 L Monocytes # (Manual) Eosinophils # (Manual) 0.5 H PT INR Fibrinogen dRVVT Confirm Interp Factor V Activity POC ABG pH POC ABG pCO2 POC ABG pO2 Sodium Potassium Chloride Carbon Dioxide 15 L BUN 72 H Creatinine 3.8 H Glucose POC Glucose Lactic Acid Calcium 6.0 L Phosphorus 4.60 H Magnesium 1.60 L Direct Bilirubin ALT Alkaline Phosphatase Troponin T C-Reactive Protein Total Protein Albumin Triglycerides Cholesterol LDL Cholesterol Direct HDL Cholesterol Urine WBC (Auto) Urine Creatinine Urine Total Protein Vancomycin Trough Rheumatoid Factor Complement C4 Miscellaneous Test Crossmatch 09/25/16 09/25/16 09/25/16 04:57 08:02 10:30 WBC RBC Hgb Hct MCV MCH MCHC RDW Plt Count Lymph % (Auto) [place] % (Auto) Lymph # [place] # Baso # Seg Neutrophils % Seg Neuts % (Manual) Lymphocytes % (Manual) Monocytes % (Manual) Eosinophils % (Manual) Basophils % (Manual) Nucleated RBC % Seg Neutrophils # Seg Neutrophils # Man Lymphocytes # (Manual) Monocytes # (Manual) Eosinophils # (Manual) PT INR Fibrinogen dRVVT Confirm Interp Factor V Activity POC ABG pH POC ABG pCO2 24.7 L POC ABG pO2 152 H Sodium Potassium Chloride Carbon Dioxide BUN Creatinine Glucose POC Glucose 113 H Lactic Acid Calcium Phosphorus Magnesium Direct Bilirubin ALT Alkaline Phosphatase Troponin T C-Reactive Protein Total Protein Albumin Triglycerides Cholesterol LDL Cholesterol Direct HDL Cholesterol Urine WBC (Auto) Urine Creatinine Urine Total Protein Vancomycin Trough Rheumatoid Factor Complement C4 Miscellaneous Test Crossmatch See Detail 09/25/16 09/25/1609/25/17 12:05 17:44 23:47 WBC RBC Hgb Hct MCV MCH MCHC RDW Plt Count Lymph % (Auto) [place] % (Auto) Lymph # [place] # Baso # Seg Neutrophils % Seg Neuts % (Manual) Lymphocytes % (Manual) Monocytes % (Manual) Eosinophils % (Manual) Basophils % (Manual) Nucleated RBC % Seg Neutrophils # Seg Neutrophils # Man Lymphocytes # (Manual) Monocytes # (Manual) Eosinophils # (Manual) PT INR Fibrinogen dRVVT Confirm Interp Factor V Activity POC ABG pH POC ABG pCO2 POC ABG pO2 Sodium Potassium Chloride Carbon Dioxide BUN Creatinine Glucose POC Glucose 117 H 119 H 150 H Lactic Acid Calcium Phosphorus Magnesium Direct Bilirubin ALT Alkaline Phosphatase Troponin T C-Reactive Protein Total Protein Albumin Triglycerides Cholesterol LDL Cholesterol Direct HDL Cholesterol Urine WBC (Auto) Urine Creatinine Urine Total Protein Vancomycin Trough Rheumatoid Factor Complement C4 Miscellaneous Test Crossmatch 09/26/16 09/26/16 09/26/16 04:25 04:25 04:25 WBC RBC 2.65 L Hgb 7.4 L Hct 21.6 L MCV MCH MCHC RDW 22.5 H Plt Count Lymph % (Auto) [place] % (Auto) Lymph # [place] # Baso # Seg Neutrophils % Seg Neuts % (Manual) Lymphocytes % (Manual) 6.0 L Monocytes % (Manual) Eosinophils % (Manual) 11.0 H Basophils % (Manual) Nucleated RBC % Seg Neutrophils # Seg Neutrophils # Man Lymphocytes # (Manual) 0.4 L Monocytes # (Manual) Eosinophils # (Manual) 0.6 H PT INR Fibrinogen dRVVT Confirm Interp Factor V Activity POC ABG pH POC ABG pCO2 POC ABG pO2 Sodium Potassium Chloride 97.0 L Carbon Dioxide 19 L BUN 43 H Creatinine 2.6 H Glucose 130 H POC Glucose Lactic Acid 4.40 H* Calcium 6.7 L Phosphorus Magnesium Direct Bilirubin ALT Alkaline Phosphatase Troponin T C-Reactive Protein Total Protein Albumin Triglycerides Cholesterol LDL Cholesterol Direct HDL Cholesterol Urine WBC (Auto) Urine Creatinine Urine Total Protein Vancomycin Trough Rheumatoid Factor Complement C4 Miscellaneous Test Crossmatch 09/26/16 09/26/16 09/26/16 05:20 11:44 12:12 WBC RBC Hgb Hct MCV MCH MCHC RDW Plt Count Lymph % (Auto) [place] % (Auto) Lymph # [place] # Baso # Seg Neutrophils % Seg Neuts % (Manual) Lymphocytes % (Manual) Monocytes % (Manual) Eosinophils % (Manual) Basophils % (Manual) Nucleated RBC % Seg Neutrophils # Seg Neutrophils # Man Lymphocytes # (Manual) Monocytes # (Manual) Eosinophils # (Manual) PT INR Fibrinogen dRVVT Confirm Interp Factor V Activity POC ABG pH POC ABG pCO2 27.0 L POC ABG pO2 69 L Sodium Potassium Chloride Carbon Dioxide BUN Creatinine Glucose POC Glucose 121 H 128 H Lactic Acid Calcium Phosphorus Magnesium Direct Bilirubin ALT Alkaline Phosphatase Troponin T C-Reactive Protein Total Protein Albumin Triglycerides Cholesterol LDL Cholesterol Direct HDL Cholesterol Urine WBC (Auto) Urine Creatinine Urine Total Protein Vancomycin Trough Rheumatoid Factor Complement C4 Miscellaneous Test Crossmatch 09/26/16 09/26/16 09/27/16 18:31 23:40 08:20 WBC RBC Hgb Hct MCV MCH MCHC RDW Plt Count Lymph % (Auto) [place] % (Auto) Lymph # [place] # Baso # Seg Neutrophils % Seg Neuts % (Manual) Lymphocytes % (Manual) Monocytes % (Manual) Eosinophils % (Manual) Basophils % (Manual) Nucleated RBC % Seg Neutrophils # Seg Neutrophils # Man Lymphocytes # (Manual) Monocytes # (Manual) Eosinophils # (Manual) PT INR Fibrinogen dRVVT Confirm Interp Factor V Activity POC ABG pH POC ABG pCO2 POC ABG pO2 Sodium Potassium Chloride Carbon Dioxide BUN Creatinine Glucose POC Glucose 120 H 133 H Lactic Acid 4.10 H* Calcium Phosphorus Magnesium Direct Bilirubin ALT Alkaline Phosphatase Troponin T C-Reactive Protein Total Protein Albumin Triglycerides Cholesterol LDL Cholesterol Direct HDL Cholesterol Urine WBC (Auto) Urine Creatinine Urine Total Protein Vancomycin Trough Rheumatoid Factor Complement C4 Miscellaneous Test Crossmatch 09/27/16 09/27/16 09/27/16 11:23 15:00 18:15 WBC RBC Hgb Hct MCV MCH MCHC RDW Plt Count Lymph % (Auto) [place] % (Auto) Lymph # [place] # Baso # Seg Neutrophils % Seg Neuts % (Manual) Lymphocytes % (Manual) Monocytes % (Manual) Eosinophils % (Manual) Basophils % (Manual) Nucleated RBC % Seg Neutrophils # Seg Neutrophils # Man Lymphocytes # (Manual) Monocytes # (Manual) Eosinophils # (Manual) PT INR Fibrinogen dRVVT Confirm Interp Factor V Activity POC ABG pH 7.459 H POC ABG pCO2 27.1 L POC ABG pO2 140 H Sodium Potassium Chloride Carbon Dioxide BUN Creatinine Glucose POC Glucose 114 H 127 H Lactic Acid Calcium Phosphorus Magnesium Direct Bilirubin ALT Alkaline Phosphatase Troponin T C-Reactive Protein Total Protein Albumin Triglycerides Cholesterol LDL Cholesterol Direct HDL Cholesterol Urine WBC (Auto) Urine Creatinine Urine Total Protein Vancomycin Trough Rheumatoid Factor Complement C4 Miscellaneous Test Crossmatch 09/27/16 09/27/16 09/28/16 Unknown Unknown 03:45 WBC RBC 2.49 L Hgb 6.8 L Hct 20.7 L MCV MCH 27 L MCHC RDW 22.1 H Plt Count Lymph % (Auto) [place] % (Auto) Lymph # [place] # Baso # Seg Neutrophils % Seg Neuts % (Manual) 32.0 L Lymphocytes % (Manual) 12.0 L Monocytes % (Manual) 11.0 H Eosinophils % (Manual) 10.0 H Basophils % (Manual) Nucleated RBC % Seg Neutrophils # Seg Neutrophils # Man Lymphocytes # (Manual) 1.0 L Monocytes # (Manual) 0.9 H Eosinophils # (Manual) 0.8 H PT INR Fibrinogen dRVVT Confirm Interp Factor V Activity POC ABG pH POC ABG pCO2 POC ABG pO2 Sodium 135 L 135 L Potassium 3.5 L Chloride 93.6 L 94.4 L Carbon Dioxide 17 L 21 L BUN 45 H 28 H Creatinine 3.3 H 2.5 H Glucose 106 H POC Glucose Lactic Acid Calcium 7.3 L 7.1 L Phosphorus Magnesium Direct Bilirubin ALT Alkaline Phosphatase Troponin T C-Reactive Protein Total Protein Albumin Triglycerides Cholesterol LDL Cholesterol Direct HDL Cholesterol Urine WBC (Auto) Urine Creatinine Urine Total Protein Vancomycin Trough Rheumatoid Factor Complement C4 Miscellaneous Test Crossmatch 09/28/16 09/28/16 09/28/16 03:45 07:25 11:58 WBC 13.3 H RBC 3.01 L Hgb 8.4 L Hct 25.0 L MCV MCH MCHC RDW 20.5 H Plt Count 128 L Lymph % (Auto) [place] % (Auto) Lymph # [place] # Baso # Seg Neutrophils % Seg Neuts % (Manual) Lymphocytes % (Manual) 7.0 L Monocytes % (Manual) Eosinophils % (Manual) 6.0 H Basophils % (Manual) Nucleated RBC % Seg Neutrophils # Seg Neutrophils # Man Lymphocytes # (Manual) 0.9 L Monocytes # (Manual) Eosinophils # (Manual) 0.8 H PT INR Fibrinogen dRVVT Confirm Interp Factor V Activity POC ABG pH POC ABG pCO2 POC ABG pO2 Sodium Potassium Chloride Carbon Dioxide BUN Creatinine Glucose POC Glucose 121 H Lactic Acid 4.50 H* Calcium Phosphorus Magnesium Direct Bilirubin ALT Alkaline Phosphatase Troponin T C-Reactive Protein Total Protein Albumin Triglycerides Cholesterol LDL Cholesterol Direct HDL Cholesterol Urine WBC (Auto) Urine Creatinine Urine Total Protein Vancomycin Trough Rheumatoid Factor Complement C4 Miscellaneous Test Crossmatch 09/29/16 09/29/16 09/29/16 06:45 06:45 06:45 WBC 14.9 H RBC 2.74 L Hgb 7.6 L Hct 23.2 L MCV MCH MCHC RDW 20.5 H Plt Count 81 L Lymph % (Auto) [place] % (Auto) Lymph # [place] # Baso # Seg Neutrophils % Seg Neuts % (Manual) 81.0 H Lymphocytes % (Manual) 4.0 L Monocytes % (Manual) Eosinophils % (Manual) Basophils % (Manual) Nucleated RBC % Seg Neutrophils # Seg Neutrophils # Man 12.1 H Lymphocytes # (Manual) 0.6 L Monocytes # (Manual) Eosinophils # (Manual) PT INR Fibrinogen dRVVT Confirm Interp Factor V Activity POC ABG pH POC ABG pCO2 POC ABG pO2 Sodium 133 L Potassium 3.4 L Chloride 92.5 L Carbon Dioxide 21 L BUN 33 H Creatinine 3.0 H Glucose POC Glucose Lactic Acid Calcium 6.6 L Phosphorus Magnesium 1.40 L Direct Bilirubin 0.9 H ALT Alkaline Phosphatase Troponin T C-Reactive Protein Total Protein 4.3 L Albumin 1.3 L Triglycerides Cholesterol LDL Cholesterol Direct HDL Cholesterol Urine WBC (Auto) Urine Creatinine Urine Total Protein Vancomycin Trough Rheumatoid Factor Complement C4 Miscellaneous Test Crossmatch 09/29/16 09/29/16 09/30/16 17:52 20:12 00:07 WBC RBC Hgb Hct MCV MCH MCHC RDW Plt Count Lymph % (Auto) [place] % (Auto) Lymph # [place] # Baso # Seg Neutrophils % Seg Neuts % (Manual) Lymphocytes % (Manual) Monocytes % (Manual) Eosinophils % (Manual) Basophils % (Manual) Nucleated RBC % Seg Neutrophils # Seg Neutrophils # Man Lymphocytes # (Manual) Monocytes # (Manual) Eosinophils # (Manual) PT INR Fibrinogen dRVVT Confirm Interp Factor V Activity POC ABG pH POC ABG pCO2 POC ABG pO2 Sodium Potassium Chloride Carbon Dioxide BUN Creatinine Glucose POC Glucose 50 L 51 L Lactic Acid Calcium Phosphorus Magnesium Direct Bilirubin ALT Alkaline Phosphatase Troponin T 0.204 H* C-Reactive Protein Total Protein Albumin Triglycerides Cholesterol 31 L LDL Cholesterol Direct 4 L HDL Cholesterol 3 L Urine WBC (Auto) Urine Creatinine Urine Total Protein Vancomycin Trough Rheumatoid Factor Complement C4 Miscellaneous Test Crossmatch 09/30/16 09/30/16 09/30/16 01:30 05:15 06:10 WBC RBC Hgb Hct MCV MCH MCHC RDW Plt Count Lymph % (Auto) [place] % (Auto) Lymph # [place] # Baso # Seg Neutrophils % Seg Neuts % (Manual) Lymphocytes % (Manual) Monocytes % (Manual) Eosinophils % (Manual) Basophils % (Manual) Nucleated RBC % Seg Neutrophils # Seg Neutrophils # Man Lymphocytes # (Manual) Monocytes # (Manual) Eosinophils # (Manual) PT INR Fibrinogen dRVVT Confirm Interp Factor V Activity POC ABG pH POC ABG pCO2 POC ABG pO2 Sodium 133 L Potassium 3.2 L Chloride 93.2 L Carbon Dioxide 19 L BUN 36 H Creatinine 3.2 H Glucose 104 H POC Glucose 167 H 146 H Lactic Acid Calcium 6.4 L Phosphorus Magnesium 1.60 L Direct Bilirubin ALT Alkaline Phosphatase Troponin T C-Reactive Protein Total Protein Albumin Triglycerides Cholesterol LDL Cholesterol Direct HDL Cholesterol Urine WBC (Auto) Urine Creatinine Urine Total Protein Vancomycin Trough Rheumatoid Factor Complement C4 Miscellaneous Test Crossmatch 09/30/16 09/30/16 09/30/16 11:26 13:39 18:38 WBC RBC Hgb Hct MCV MCH MCHC RDW Plt Count Lymph % (Auto) [place] % (Auto) Lymph # [place] # Baso # Seg Neutrophils % Seg Neuts % (Manual) Lymphocytes % (Manual) Monocytes % (Manual) Eosinophils % (Manual) Basophils % (Manual) Nucleated RBC % Seg Neutrophils # Seg Neutrophils # Man Lymphocytes # (Manual) Monocytes # (Manual) Eosinophils # (Manual) PT INR Fibrinogen dRVVT Confirm Interp Factor V Activity POC ABG pH 7.479 H POC ABG pCO2 29.8 L POC ABG pO2 117 H Sodium Potassium Chloride Carbon Dioxide BUN Creatinine Glucose POC Glucose 140 H 122 H Lactic Acid Calcium Phosphorus Magnesium Direct Bilirubin ALT Alkaline Phosphatase Troponin T C-Reactive Protein Total Protein Albumin Triglycerides Cholesterol LDL Cholesterol Direct HDL Cholesterol Urine WBC (Auto) Urine Creatinine Urine Total Protein Vancomycin Trough Rheumatoid Factor Complement C4 Miscellaneous Test Crossmatch 10/01/16 10/01/16 10/01/16 06:00 06:00 12:37 WBC 12.6 H RBC 2.75 L Hgb 7.3 L Hct 23.3 L MCV MCH 27 L MCHC RDW 20.6 H Plt Count 72 L Lymph % (Auto) [place] % (Auto) Lymph # [place] # Baso # Seg Neutrophils % Seg Neuts % (Manual) 31.0 L Lymphocytes % (Manual) 8.0 L Monocytes % (Manual) Eosinophils % (Manual) Basophils % (Manual) Nucleated RBC % 3.0 H Seg Neutrophils # Seg Neutrophils # Man Lymphocytes # (Manual) 1.0 L Monocytes # (Manual) Eosinophils # (Manual) PT INR Fibrinogen dRVVT Confirm Interp Factor V Activity POC ABG pH POC ABG pCO2 POC ABG pO2 Sodium 127 L Potassium Chloride 86.8 L Carbon Dioxide 20 L BUN 42 H Creatinine 3.5 H Glucose POC Glucose 65 L Lactic Acid Calcium 7.0 L Phosphorus Magnesium Direct Bilirubin ALT Alkaline Phosphatase Troponin T C-Reactive Protein Total Protein Albumin Triglycerides Cholesterol LDL Cholesterol Direct HDL Cholesterol Urine WBC (Auto) Urine Creatinine Urine Total Protein Vancomycin Trough Rheumatoid Factor Complement C4 Miscellaneous Test Crossmatch 10/01/16 10/01/16 10/02/16 17:39 23:32 00:59 WBC RBC Hgb Hct MCV MCH MCHC RDW Plt Count Lymph % (Auto) [place] % (Auto) Lymph # [place] # Baso # Seg Neutrophils % Seg Neuts % (Manual) Lymphocytes % (Manual) Monocytes % (Manual) Eosinophils % (Manual) Basophils % (Manual) Nucleated RBC % Seg Neutrophils # Seg Neutrophils # Man Lymphocytes # (Manual) Monocytes # (Manual) Eosinophils # (Manual) PT INR Fibrinogen dRVVT Confirm Interp Factor V Activity POC ABG pH POC ABG pCO2 POC ABG pO2 Sodium Potassium Chloride Carbon Dioxide BUN Creatinine Glucose POC Glucose 107 H 52 L 145 H Lactic Acid Calcium Phosphorus Magnesium Direct Bilirubin ALT Alkaline Phosphatase Troponin T C-Reactive Protein Total Protein Albumin Triglycerides Cholesterol LDL Cholesterol Direct HDL Cholesterol Urine WBC (Auto) Urine Creatinine Urine Total Protein Vancomycin Trough Rheumatoid Factor Complement C4 Miscellaneous Test Crossmatch 10/02/16 10/02/16 10/02/16 10:30 10:50 10:50 WBC 14.7 H RBC 2.76 L Hgb 7.4 L Hct 23.6 L MCV MCH 27 L MCHC RDW 20.2 H Plt Count 79 L Lymph % (Auto) [place] % (Auto) Lymph # [place] # Baso # Seg Neutrophils % Seg Neuts % (Manual) 86.0 H Lymphocytes % (Manual) 6.0 L Monocytes % (Manual) Eosinophils % (Manual) Basophils % (Manual) Nucleated RBC % Seg Neutrophils # Seg Neutrophils # Man 12.6 H Lymphocytes # (Manual) 0.9 L Monocytes # (Manual) Eosinophils # (Manual) PT INR Fibrinogen dRVVT Confirm Interp Factor V Activity POC ABG pH 7.486 H POC ABG pCO2 30.1 L POC ABG pO2 108 H Sodium 131 L Potassium 3.4 L Chloride 89.9 L Carbon Dioxide BUN 26 H Creatinine 2.6 H Glucose POC Glucose Lactic Acid Calcium 7.0 L Phosphorus Magnesium Direct Bilirubin ALT Alkaline Phosphatase Troponin T C-Reactive Protein Total Protein Albumin Triglycerides Cholesterol LDL Cholesterol Direct HDL Cholesterol Urine WBC (Auto) Urine Creatinine Urine Total Protein Vancomycin Trough Rheumatoid Factor Complement C4 Miscellaneous Test Crossmatch 10/02/16 10/03/16 10/03/16 23:45 00:45 05:10 WBC 12.9 H RBC 2.77 L Hgb 7.6 L Hct 23.7 L MCV MCH 27 L MCHC RDW 19.7 H Plt Count 89 L Lymph % (Auto) [place] % (Auto) Lymph # [place] # Baso # Seg Neutrophils % Seg Neuts % (Manual) Lymphocytes % (Manual) 8.0 L Monocytes % (Manual) Eosinophils % (Manual) Basophils % (Manual) Nucleated RBC % Seg Neutrophils # 11.9 H Seg Neutrophils # Man Lymphocytes # (Manual) 1.0 L Monocytes # (Manual) Eosinophils # (Manual) PT INR Fibrinogen dRVVT Confirm Interp Factor V Activity POC ABG pH POC ABG pCO2 POC ABG pO2 Sodium Potassium Chloride Carbon Dioxide BUN Creatinine Glucose POC Glucose 55 L 199 H Lactic Acid Calcium Phosphorus Magnesium Direct Bilirubin ALT Alkaline Phosphatase Troponin T C-Reactive Protein Total Protein Albumin Triglycerides Cholesterol LDL Cholesterol Direct HDL Cholesterol Urine WBC (Auto) Urine Creatinine Urine Total Protein Vancomycin Trough Rheumatoid Factor Complement C4 Miscellaneous Test Crossmatch 10/03/16 10/03/16 10/03/16 05:10 12:14 13:18 WBC RBC Hgb Hct MCV MCH MCHC RDW Plt Count Lymph % (Auto) [place] % (Auto) Lymph # [place] # Baso # Seg Neutrophils % Seg Neuts % (Manual) Lymphocytes % (Manual) Monocytes % (Manual) Eosinophils % (Manual) Basophils % (Manual) Nucleated RBC % Seg Neutrophils # Seg Neutrophils # Man Lymphocytes # (Manual) Monocytes # (Manual) Eosinophils # (Manual) PT INR Fibrinogen dRVVT Confirm Interp Factor V Activity POC ABG pH POC ABG pCO2 POC ABG pO2 Sodium 129 L Potassium 3.3 L Chloride 88.8 L Carbon Dioxide 20 L BUN 29 H Creatinine 2.8 H Glucose POC Glucose 68 L 127 H Lactic Acid Calcium 7.2 L Phosphorus Magnesium Direct Bilirubin ALT Alkaline Phosphatase Troponin T C-Reactive Protein Total Protein Albumin Triglycerides Cholesterol LDL Cholesterol Direct HDL Cholesterol Urine WBC (Auto) Urine Creatinine Urine Total Protein Vancomycin Trough Rheumatoid Factor Complement C4 Miscellaneous Test Crossmatch 10/03/16 10/03/16 10/03/16 14:42 18:21 19:09 WBC RBC Hgb Hct MCV MCH MCHC RDW Plt Count Lymph % (Auto) [place] % (Auto) Lymph # [place] # Baso # Seg Neutrophils % Seg Neuts % (Manual) Lymphocytes % (Manual) Monocytes % (Manual) Eosinophils % (Manual) Basophils % (Manual) Nucleated RBC % Seg Neutrophils # Seg Neutrophils # Man Lymphocytes # (Manual) Monocytes # (Manual) Eosinophils # (Manual) PT INR Fibrinogen dRVVT Confirm Interp Factor V Activity POC ABG pH 7.499 H POC ABG pCO2 28.4 L POC ABG pO2 44 L Sodium Potassium Chloride Carbon Dioxide BUN Creatinine Glucose POC Glucose 64 L 205 H Lactic Acid Calcium Phosphorus Magnesium Direct Bilirubin ALT Alkaline Phosphatase Troponin T C-Reactive Protein Total Protein Albumin Triglycerides Cholesterol LDL Cholesterol Direct HDL Cholesterol Urine WBC (Auto) Urine Creatinine Urine Total Protein Vancomycin Trough Rheumatoid Factor Complement C4 Miscellaneous Test Crossmatch 10/03/16 10/04/16 10/04/16 23:33 04:18 06:30 WBC RBC 2.54 L Hgb 7.1 L Hct 21.7 L MCV MCH MCHC RDW 19.5 H Plt Count 76 L Lymph % (Auto) [place] % (Auto) Lymph # [place] # Baso # Seg Neutrophils % Seg Neuts % (Manual) 88.0 H Lymphocytes % (Manual) 6.0 L Monocytes % (Manual) Eosinophils % (Manual) Basophils % (Manual) Nucleated RBC % Seg Neutrophils # Seg Neutrophils # Man 8.8 H Lymphocytes # (Manual) 0.6 L Monocytes # (Manual) Eosinophils # (Manual) PT INR Fibrinogen dRVVT Confirm Interp Factor V Activity POC ABG pH 7.461 H POC ABG pCO2 33.6 L POC ABG pO2 211 H Sodium Potassium Chloride Carbon Dioxide BUN Creatinine Glucose POC Glucose 136 H Lactic Acid Calcium Phosphorus Magnesium Direct Bilirubin ALT Alkaline Phosphatase Troponin T C-Reactive Protein Total Protein Albumin Triglycerides Cholesterol LDL Cholesterol Direct HDL Cholesterol Urine WBC (Auto) Urine Creatinine Urine Total Protein Vancomycin Trough Rheumatoid Factor Complement C4 Miscellaneous Test Crossmatch 10/04/16 10/04/16 10/04/16 06:30 11:45 17:54 WBC RBC Hgb Hct MCV MCH MCHC RDW Plt Count Lymph % (Auto) [place] % (Auto) Lymph # [place] # Baso # Seg Neutrophils % Seg Neuts % (Manual) Lymphocytes % (Manual) Monocytes % (Manual) Eosinophils % (Manual) Basophils % (Manual) Nucleated RBC % Seg Neutrophils # Seg Neutrophils # Man Lymphocytes # (Manual) Monocytes # (Manual) Eosinophils # (Manual) PT INR Fibrinogen dRVVT Confirm Interp Factor V Activity POC ABG pH POC ABG pCO2 POC ABG pO2 Sodium 128 L Potassium Chloride 87.4 L Carbon Dioxide 20 L BUN 34 H Creatinine 2.9 H Glucose 127 H POC Glucose 158 H 160 H Lactic Acid Calcium 7.4 L Phosphorus Magnesium Direct Bilirubin ALT Alkaline Phosphatase Troponin T C-Reactive Protein Total Protein Albumin Triglycerides Cholesterol LDL Cholesterol Direct HDL Cholesterol Urine WBC (Auto) Urine Creatinine Urine Total Protein Vancomycin Trough Rheumatoid Factor Complement C4 Miscellaneous Test Crossmatch 10/04/16 10/05/16 10/05/16 23:25 04:30 05:00 WBC RBC 2.64 L Hgb 7.5 L Hct 22.6 L MCV MCH MCHC RDW 19.3 H Plt Count 80 L Lymph % (Auto) [place] % (Auto) Lymph # [place] # Baso # Seg Neutrophils % Seg Neuts % (Manual) Lymphocytes % (Manual) 12.0 L Monocytes % (Manual) Eosinophils % (Manual) Basophils % (Manual) Nucleated RBC % Seg Neutrophils # Seg Neutrophils # Man Lymphocytes # (Manual) Monocytes # (Manual) Eosinophils # (Manual) PT INR Fibrinogen dRVVT Confirm Interp Factor V Activity POC ABG pH 7.475 H POC ABG pCO2 33.3 L POC ABG pO2 140 H Sodium Potassium Chloride Carbon Dioxide BUN Creatinine Glucose POC Glucose 141 H Lactic Acid Calcium Phosphorus Magnesium Direct Bilirubin ALT Alkaline Phosphatase Troponin T C-Reactive Protein Total Protein Albumin Triglycerides Cholesterol LDL Cholesterol Direct HDL Cholesterol Urine WBC (Auto) Urine Creatinine Urine Total Protein Vancomycin Trough Rheumatoid Factor Complement C4 Miscellaneous Test Crossmatch 10/05/16 10/05/16 10/05/16 05:00 05:09 12:58 WBC RBC Hgb Hct MCV MCH MCHC RDW Plt Count Lymph % (Auto) [place] % (Auto) Lymph # [place] # Baso # Seg Neutrophils % Seg Neuts % (Manual) Lymphocytes % (Manual) Monocytes % (Manual) Eosinophils % (Manual) Basophils % (Manual) Nucleated RBC % Seg Neutrophils # Seg Neutrophils # Man Lymphocytes # (Manual) Monocytes # (Manual) Eosinophils # (Manual) PT INR Fibrinogen dRVVT Confirm Interp Factor V Activity POC ABG pH POC ABG pCO2 POC ABG pO2 Sodium 131 L Potassium Chloride 94.0 L Carbon Dioxide 20 L BUN 22 H Creatinine 2.0 H Glucose 123 H POC Glucose 166 H 179 H Lactic Acid Calcium 7.7 L Phosphorus 2.20 L D Magnesium Direct Bilirubin ALT Alkaline Phosphatase Troponin T C-Reactive Protein Total Protein Albumin Triglycerides Cholesterol LDL Cholesterol Direct HDL Cholesterol Urine WBC (Auto) Urine Creatinine Urine Total Protein Vancomycin Trough Rheumatoid Factor Complement C4 Miscellaneous Test Crossmatch 10/05/16 10/05/16 10/05/16 15:50 18:53 23:12 WBC RBC Hgb Hct MCV MCH MCHC RDW Plt Count Lymph % (Auto) [place] % (Auto) Lymph # [place] # Baso # Seg Neutrophils % Seg Neuts % (Manual) Lymphocytes % (Manual) Monocytes % (Manual) Eosinophils % (Manual) Basophils % (Manual) Nucleated RBC % Seg Neutrophils # Seg Neutrophils # Man Lymphocytes # (Manual) Monocytes # (Manual) Eosinophils # (Manual) PT INR Fibrinogen dRVVT Confirm Interp Factor V Activity POC ABG pH POC ABG pCO2 POC ABG pO2 Sodium Potassium Chloride Carbon Dioxide BUN Creatinine Glucose POC Glucose 150 H 164 H Lactic Acid Calcium Phosphorus Magnesium Direct Bilirubin ALT Alkaline Phosphatase Troponin T C-Reactive Protein Total Protein Albumin Triglycerides Cholesterol LDL Cholesterol Direct HDL Cholesterol Urine WBC (Auto) Urine Creatinine Urine Total Protein Vancomycin Trough Rheumatoid Factor Complement C4 Miscellaneous Test Crossmatch See Detail 10/06/16 10/06/16 10/06/16 03:50 03:50 04:53 WBC RBC 3.00 L Hgb 8.6 L Hct 25.8 L MCV MCH MCHC RDW 17.9 H Plt Count 65 L Lymph % (Auto) [place] % (Auto) Lymph # [place] # Baso # Seg Neutrophils % Seg Neuts % (Manual) 30.0 L Lymphocytes % (Manual) 5.0 L Monocytes % (Manual) Eosinophils % (Manual) Basophils % (Manual) Nucleated RBC % Seg Neutrophils # Seg Neutrophils # Man Lymphocytes # (Manual) 0.4 L Monocytes # (Manual) Eosinophils # (Manual) PT INR Fibrinogen dRVVT Confirm Interp Factor V Activity POC ABG pH 7.310 L POC ABG pCO2 49.0 H POC ABG pO2 Sodium 133 L Potassium Chloride 95.9 L Carbon Dioxide BUN 26 H Creatinine 2.0 H Glucose 116 H POC Glucose Lactic Acid Calcium 7.8 L Phosphorus Magnesium Direct Bilirubin ALT Alkaline Phosphatase Troponin T C-Reactive Protein Total Protein Albumin Triglycerides Cholesterol LDL Cholesterol Direct HDL Cholesterol Urine WBC (Auto) Urine Creatinine Urine Total Protein Vancomycin Trough Rheumatoid Factor Complement C4 Miscellaneous Test Crossmatch 10/06/16 10/06/16 10/06/16 05:23 11:52 18:34 WBC RBC Hgb Hct MCV MCH MCHC RDW Plt Count Lymph % (Auto) [place] % (Auto) Lymph # [place] # Baso # Seg Neutrophils % Seg Neuts % (Manual) Lymphocytes % (Manual) Monocytes % (Manual) Eosinophils % (Manual) Basophils % (Manual) Nucleated RBC % Seg Neutrophils # Seg Neutrophils # Man Lymphocytes # (Manual) Monocytes # (Manual) Eosinophils # (Manual) PT INR Fibrinogen dRVVT Confirm Interp Factor V Activity POC ABG pH POC ABG pCO2 POC ABG pO2 Sodium Potassium Chloride Carbon Dioxide BUN Creatinine Glucose POC Glucose 126 H 116 H 129 H Lactic Acid Calcium Phosphorus Magnesium Direct Bilirubin ALT Alkaline Phosphatase Troponin T C-Reactive Protein Total Protein Albumin Triglycerides Cholesterol LDL Cholesterol Direct HDL Cholesterol Urine WBC (Auto) Urine Creatinine Urine Total Protein Vancomycin Trough Rheumatoid Factor Complement C4 Miscellaneous Test Crossmatch 10/07/16 10/07/16 10/07/16 03:45 05:00 10:00 WBC 17.0 H RBC 2.68 L Hgb 7.3 L Hct 25.3 L MCV MCH 27 L MCHC 29 L RDW 19.6 H Plt Count 74 L Lymph % (Auto) [place] % (Auto) Lymph # [place] # Baso # Seg Neutrophils % Seg Neuts % (Manual) Lymphocytes % (Manual) 12.0 L Monocytes % (Manual) Eosinophils % (Manual) Basophils % (Manual) Nucleated RBC % 4.0 H Seg Neutrophils # Seg Neutrophils # Man 10.7 H Lymphocytes # (Manual) Monocytes # (Manual) Eosinophils # (Manual) PT INR Fibrinogen dRVVT Confirm Interp Factor V Activity POC ABG pH POC ABG pCO2 POC ABG pO2 Sodium 130 L Potassium 3.2 L Chloride 93.9 L Carbon Dioxide 20 L BUN 44 H Creatinine 2.7 H Glucose 129 H POC Glucose Lactic Acid Calcium 7.4 L Phosphorus Magnesium Direct Bilirubin ALT 6 L Alkaline Phosphatase 195 H Troponin T C-Reactive Protein Total Protein 4.9 L Albumin 1.0 L Triglycerides Cholesterol LDL Cholesterol Direct HDL Cholesterol Urine WBC (Auto) Urine Creatinine Urine Total Protein Vancomycin Trough Rheumatoid Factor Complement C4 Miscellaneous Test Flexitest 1 H Crossmatch 10/07/16 10/07/16 10/07/16 10:00 11:24 18:10 WBC RBC Hgb Hct MCV MCH MCHC RDW Plt Count Lymph % (Auto) [place] % (Auto) Lymph # [place] # Baso # Seg Neutrophils % Seg Neuts % (Manual) Lymphocytes % (Manual) Monocytes % (Manual) Eosinophils % (Manual) Basophils % (Manual) Nucleated RBC % Seg Neutrophils # Seg Neutrophils # Man Lymphocytes # (Manual) Monocytes # (Manual) Eosinophils # (Manual) PT INR Fibrinogen dRVVT Confirm Interp Factor V Activity POC ABG pH POC ABG pCO2 POC ABG pO2 Sodium Potassium Chloride Carbon Dioxide BUN Creatinine Glucose POC Glucose 116 H 130 H Lactic Acid Calcium Phosphorus Magnesium Direct Bilirubin ALT Alkaline Phosphatase Troponin T C-Reactive Protein 19.40 H Total Protein Albumin Triglycerides Cholesterol LDL Cholesterol Direct HDL Cholesterol Urine WBC (Auto) Urine Creatinine Urine Total Protein Vancomycin Trough Rheumatoid Factor Complement C4 Miscellaneous Test Crossmatch 10/07/16 10/08/16 10/08/16 18:30 00:00 04:00 WBC RBC Hgb Hct MCV MCH MCHC RDW Plt Count Lymph % (Auto) [place] % (Auto) Lymph # [place] # Baso # Seg Neutrophils % Seg Neuts % (Manual) Lymphocytes % (Manual) Monocytes % (Manual) Eosinophils % (Manual) Basophils % (Manual) Nucleated RBC % Seg Neutrophils # Seg Neutrophils # Man Lymphocytes # (Manual) Monocytes # (Manual) Eosinophils # (Manual) PT INR Fibrinogen dRVVT Confirm Interp Factor V Activity POC ABG pH POC ABG pCO2 POC ABG pO2 Sodium 132 L Potassium 3.3 L Chloride 93.6 L Carbon Dioxide 17 L BUN 59 H Creatinine 2.7 H Glucose 121 H POC Glucose 122 H Lactic Acid Calcium 7.6 L Phosphorus Magnesium Direct Bilirubin ALT Alkaline Phosphatase Troponin T C-Reactive Protein Total Protein Albumin Triglycerides Cholesterol LDL Cholesterol Direct HDL Cholesterol Urine WBC (Auto) > 182.0 H Urine Creatinine Urine Total Protein Vancomycin Trough Rheumatoid Factor Complement C4 Miscellaneous Test Crossmatch 10/08/16 10/08/16 10/08/16 04:30 05:30 11:51 WBC RBC 5.15 H Hgb 14.4 H D Hct 44.5 H D MCV MCH MCHC RDW 19.5 H Plt Count 56 L Lymph % (Auto) [place] % (Auto) Lymph # [place] # Baso # Seg Neutrophils % Seg Neuts % (Manual) 24.0 L Lymphocytes % (Manual) 8.0 L Monocytes % (Manual) Eosinophils % (Manual) Basophils % (Manual) Nucleated RBC % 9.0 H Seg Neutrophils # Seg Neutrophils # Man Lymphocytes # (Manual) 0.7 L Monocytes # (Manual) Eosinophils # (Manual) PT INR Fibrinogen dRVVT Confirm Interp Factor V Activity POC ABG pH POC ABG pCO2 POC ABG pO2 Sodium Potassium Chloride Carbon Dioxide BUN Creatinine Glucose POC Glucose 125 H 150 H Lactic Acid Calcium Phosphorus Magnesium Direct Bilirubin ALT Alkaline Phosphatase Troponin T C-Reactive Protein Total Protein Albumin Triglycerides Cholesterol LDL Cholesterol Direct HDL Cholesterol Urine WBC (Auto) Urine Creatinine Urine Total Protein Vancomycin Trough Rheumatoid Factor Complement C4 Miscellaneous Test Crossmatch 10/08/16 10/08/16 10/08/16 12:49 17:07 19:30 WBC RBC Hgb 7.1 L D Hct 22.4 L D MCV MCH MCHC RDW Plt Count Lymph % (Auto) [place] % (Auto) Lymph # [place] # Baso # Seg Neutrophils % Seg Neuts % (Manual) Lymphocytes % (Manual) Monocytes % (Manual) Eosinophils % (Manual) Basophils % (Manual) Nucleated RBC % Seg Neutrophils # Seg Neutrophils # Man Lymphocytes # (Manual) Monocytes # (Manual) Eosinophils # (Manual) PT INR Fibrinogen dRVVT Confirm Interp Factor V Activity POC ABG pH POC ABG pCO2 28.2 L POC ABG pO2 111 H Sodium Potassium Chloride Carbon Dioxide BUN Creatinine Glucose POC Glucose 145 H Lactic Acid Calcium Phosphorus Magnesium Direct Bilirubin ALT Alkaline Phosphatase Troponin T C-Reactive Protein Total Protein Albumin Triglycerides Cholesterol LDL Cholesterol Direct HDL Cholesterol Urine WBC (Auto) Urine Creatinine Urine Total Protein Vancomycin Trough Rheumatoid Factor Complement C4 Miscellaneous Test Crossmatch 10/08/16 10/09/16 10/09/16 19:30 03:45 03:45 WBC 12.6 H RBC 2.36 L Hgb 6.7 L Hct 21.1 L MCV MCH MCHC RDW 19.5 H Plt Count 75 L Lymph % (Auto) [place] % (Auto) Lymph # [place] # Baso # Seg Neutrophils % Seg Neuts % (Manual) Lymphocytes % (Manual) Monocytes % (Manual) 10.0 H Eosinophils % (Manual) Basophils % (Manual) Nucleated RBC % 3.0 H Seg Neutrophils # Seg Neutrophils # Man Lymphocytes # (Manual) Monocytes # (Manual) 1.3 H Eosinophils # (Manual) PT 18.0 H INR 1.41 H Fibrinogen dRVVT Confirm Interp Factor V Activity POC ABG pH POC ABG pCO2 POC ABG pO2 Sodium 135 L Potassium Chloride Carbon Dioxide 17 L BUN 81 H Creatinine 3.2 H Glucose 109 H POC Glucose Lactic Acid Calcium 7.4 L Phosphorus 4.60 H D Magnesium Direct Bilirubin ALT Alkaline Phosphatase Troponin T C-Reactive Protein Total Protein Albumin Triglycerides Cholesterol LDL Cholesterol Direct HDL Cholesterol Urine WBC (Auto) Urine Creatinine Urine Total Protein Vancomycin Trough Rheumatoid Factor Complement C4 Miscellaneous Test Crossmatch 10/09/16 10/09/16 10/09/16 03:45 05:14 07:20 WBC RBC Hgb Hct MCV MCH MCHC RDW Plt Count Lymph % (Auto) [place] % (Auto) Lymph # [place] # Baso # Seg Neutrophils % Seg Neuts % (Manual) Lymphocytes % (Manual) Monocytes % (Manual) Eosinophils % (Manual) Basophils % (Manual) Nucleated RBC % Seg Neutrophils # Seg Neutrophils # Man Lymphocytes # (Manual) Monocytes # (Manual) Eosinophils # (Manual) PT 19.0 H INR 1.51 H Fibrinogen dRVVT Confirm Interp Factor V Activity POC ABG pH POC ABG pCO2 POC ABG pO2 Sodium Potassium Chloride Carbon Dioxide BUN Creatinine Glucose POC Glucose 151 H Lactic Acid Calcium Phosphorus Magnesium Direct Bilirubin ALT Alkaline Phosphatase Troponin T C-Reactive Protein Total Protein Albumin Triglycerides Cholesterol LDL Cholesterol Direct HDL Cholesterol Urine WBC (Auto) Urine Creatinine Urine Total Protein Vancomycin Trough Rheumatoid Factor Complement C4 Miscellaneous Test Crossmatch See Detail 10/09/16 10/09/16 10/09/16 11:46 16:20 16:43 WBC RBC Hgb 7.2 L Hct 22.2 L MCV MCH MCHC RDW Plt Count Lymph % (Auto) [place] % (Auto) Lymph # [place] # Baso # Seg Neutrophils % Seg Neuts % (Manual) Lymphocytes % (Manual) Monocytes % (Manual) Eosinophils % (Manual) Basophils % (Manual) Nucleated RBC % Seg Neutrophils # Seg Neutrophils # Man Lymphocytes # (Manual) Monocytes # (Manual) Eosinophils # (Manual) PT INR Fibrinogen dRVVT Confirm Interp Factor V Activity POC ABG pH POC ABG pCO2 POC ABG pO2 Sodium Potassium Chloride Carbon Dioxide BUN Creatinine Glucose POC Glucose 133 H 141 H Lactic Acid Calcium Phosphorus Magnesium Direct Bilirubin ALT Alkaline Phosphatase Troponin T C-Reactive Protein Total Protein Albumin Triglycerides Cholesterol LDL Cholesterol Direct HDL Cholesterol Urine WBC (Auto) Urine Creatinine Urine Total Protein Vancomycin Trough Rheumatoid Factor Complement C4 Miscellaneous Test Crossmatch 10/10/16 10/10/16 10/10/16 05:00 05:00 11:19 WBC 18.5 H RBC 2.19 L Hgb 6.4 L Hct 19.6 L* MCV MCH MCHC RDW 19.3 H Plt Count 93 L Lymph % (Auto) [place] % (Auto) Lymph # [place] # Baso # Seg Neutrophils % Seg Neuts % (Manual) Lymphocytes % (Manual) 10.0 L Monocytes % (Manual) Eosinophils % (Manual) Basophils % (Manual) Nucleated RBC % 4.0 H Seg Neutrophils # Seg Neutrophils # Man 11.3 H Lymphocytes # (Manual) Monocytes # (Manual) Eosinophils # (Manual) PT INR Fibrinogen dRVVT Confirm Interp Factor V Activity POC ABG pH POC ABG pCO2 POC ABG pO2 Sodium Potassium 5.7 H D Chloride Carbon Dioxide 16 L BUN 94 H Creatinine 3.1 H Glucose 131 H POC Glucose 153 H Lactic Acid Calcium 8.2 L Phosphorus 5.10 H Magnesium 2.40 H Direct Bilirubin 0.3 H ALT < 5 L Alkaline Phosphatase 319 H Troponin T C-Reactive Protein Total Protein 5.1 L Albumin 1.0 L Triglycerides Cholesterol LDL Cholesterol Direct HDL Cholesterol Urine WBC (Auto) Urine Creatinine Urine Total Protein Vancomycin Trough Rheumatoid Factor Complement C4 Miscellaneous Test Crossmatch 10/10/16 10/10/16 10/11/16 17:50 23:30 04:15 WBC RBC Hgb Hct MCV MCH MCHC RDW Plt Count Lymph % (Auto) [place] % (Auto) Lymph # [place] # Baso # Seg Neutrophils % Seg Neuts % (Manual) Lymphocytes % (Manual) Monocytes % (Manual) Eosinophils % (Manual) Basophils % (Manual) Nucleated RBC % Seg Neutrophils # Seg Neutrophils # Man Lymphocytes # (Manual) Monocytes # (Manual) Eosinophils # (Manual) PT INR Fibrinogen dRVVT Confirm Interp Factor V Activity POC ABG pH POC ABG pCO2 POC ABG pO2 Sodium Potassium Chloride 96.4 L Carbon Dioxide 21 L BUN 57 H Creatinine 2.1 H Glucose 151 H POC Glucose 146 H 141 H Lactic Acid Calcium 8.3 L Phosphorus Magnesium Direct Bilirubin ALT Alkaline Phosphatase Troponin T C-Reactive Protein Total Protein Albumin Triglycerides Cholesterol LDL Cholesterol Direct HDL Cholesterol Urine WBC (Auto) Urine Creatinine Urine Total Protein Vancomycin Trough Rheumatoid Factor Complement C4 Miscellaneous Test Crossmatch 10/11/16 10/11/16 10/11/16 04:15 04:15 05:30 WBC 28.3 H RBC 3.12 L Hgb 9.3 L Hct 28.7 L D MCV MCH MCHC RDW 17.7 H Plt Count 128 L Lymph % (Auto) [place] % (Auto) Lymph # [place] # Baso # Seg Neutrophils % Seg Neuts % (Manual) Lymphocytes % (Manual) Monocytes % (Manual) Eosinophils % (Manual) Basophils % (Manual) Nucleated RBC % Seg Neutrophils # Seg Neutrophils # Man Lymphocytes # (Manual) Monocytes # (Manual) Eosinophils # (Manual) PT INR Fibrinogen dRVVT Confirm Interp Factor V Activity POC ABG pH POC ABG pCO2 POC ABG pO2 Sodium Potassium Chloride Carbon Dioxide BUN Creatinine Glucose POC Glucose 167 H Lactic Acid Calcium Phosphorus Magnesium Direct Bilirubin ALT Alkaline Phosphatase Troponin T C-Reactive Protein 15.80 H Total Protein Albumin Triglycerides Cholesterol LDL Cholesterol Direct HDL Cholesterol Urine WBC (Auto) Urine Creatinine Urine Total Protein Vancomycin Trough Rheumatoid Factor Complement C4 Miscellaneous Test Crossmatch 10/11/16 10/11/16 10/11/16 11:40 15:49 23:57 WBC RBC Hgb Hct MCV MCH MCHC RDW Plt Count Lymph % (Auto) [place] % (Auto) Lymph # [place] # Baso # Seg Neutrophils % Seg Neuts % (Manual) Lymphocytes % (Manual) Monocytes % (Manual) Eosinophils % (Manual) Basophils % (Manual) Nucleated RBC % Seg Neutrophils # Seg Neutrophils # Man Lymphocytes # (Manual) Monocytes # (Manual) Eosinophils # (Manual) PT INR Fibrinogen dRVVT Confirm Interp Factor V Activity POC ABG pH POC ABG pCO2 POC ABG pO2 Sodium Potassium Chloride Carbon Dioxide BUN Creatinine Glucose POC Glucose 139 H 168 H 161 H Lactic Acid Calcium Phosphorus Magnesium Direct Bilirubin ALT Alkaline Phosphatase Troponin T C-Reactive Protein Total Protein Albumin Triglycerides Cholesterol LDL Cholesterol Direct HDL Cholesterol Urine WBC (Auto) Urine Creatinine Urine Total Protein Vancomycin Trough Rheumatoid Factor Complement C4 Miscellaneous Test Crossmatch 10/12/16 10/12/16 10/12/16 04:40 04:40 05:44 WBC 22.5 H RBC 2.88 L Hgb 8.8 L Hct 26.8 L MCV MCH MCHC RDW 17.8 H Plt Count Lymph % (Auto) [place] % (Auto) Lymph # [place] # Baso # Seg Neutrophils % Seg Neuts % (Manual) Lymphocytes % (Manual) Monocytes % (Manual) Eosinophils % (Manual) Basophils % (Manual) Nucleated RBC % Seg Neutrophils # Seg Neutrophils # Man Lymphocytes # (Manual) Monocytes # (Manual) Eosinophils # (Manual) PT INR Fibrinogen dRVVT Confirm Interp Factor V Activity POC ABG pH POC ABG pCO2 POC ABG pO2 Sodium 134 L Potassium Chloride 93.0 L Carbon Dioxide BUN 74 H Creatinine 2.5 H Glucose 137 H POC Glucose 158 H Lactic Acid Calcium 8.2 L Phosphorus Magnesium Direct Bilirubin ALT Alkaline Phosphatase Troponin T C-Reactive Protein Total Protein Albumin Triglycerides Cholesterol LDL Cholesterol Direct HDL Cholesterol Urine WBC (Auto) Urine Creatinine Urine Total Protein Vancomycin Trough Rheumatoid Factor Complement C4 Miscellaneous Test Crossmatch 10/12/16 10/12/16 10/12/16 12:27 18:18 23:46 WBC RBC Hgb Hct MCV MCH MCHC RDW Plt Count Lymph % (Auto) [place] % (Auto) Lymph # [place] # Baso # Seg Neutrophils % Seg Neuts % (Manual) Lymphocytes % (Manual) Monocytes % (Manual) Eosinophils % (Manual) Basophils % (Manual) Nucleated RBC % Seg Neutrophils # Seg Neutrophils # Man Lymphocytes # (Manual) Monocytes # (Manual) Eosinophils # (Manual) PT INR Fibrinogen dRVVT Confirm Interp Factor V Activity POC ABG pH POC ABG pCO2 POC ABG pO2 Sodium Potassium Chloride Carbon Dioxide BUN Creatinine Glucose POC Glucose 153 H 140 H 150 H Lactic Acid Calcium Phosphorus Magnesium Direct Bilirubin ALT Alkaline Phosphatase Troponin T C-Reactive Protein Total Protein Albumin Triglycerides Cholesterol LDL Cholesterol Direct HDL Cholesterol Urine WBC (Auto) Urine Creatinine Urine Total Protein Vancomycin Trough Rheumatoid Factor Complement C4 Miscellaneous Test Crossmatch 10/13/16 10/13/16 10/13/16 06:22 09:20 12:29 WBC RBC Hgb Hct MCV MCH MCHC RDW Plt Count Lymph % (Auto) [place] % (Auto) Lymph # [place] # Baso # Seg Neutrophils % Seg Neuts % (Manual) Lymphocytes % (Manual) Monocytes % (Manual) Eosinophils % (Manual) Basophils % (Manual) Nucleated RBC % Seg Neutrophils # Seg Neutrophils # Man Lymphocytes # (Manual) Monocytes # (Manual) Eosinophils # (Manual) PT INR Fibrinogen dRVVT Confirm Interp Factor V Activity POC ABG pH POC ABG pCO2 POC ABG pO2 Sodium Potassium Chloride Carbon Dioxide BUN Creatinine Glucose POC Glucose 165 H 193 H Lactic Acid Calcium Phosphorus Magnesium Direct Bilirubin ALT Alkaline Phosphatase Troponin T C-Reactive Protein Total Protein Albumin Triglycerides Cholesterol LDL Cholesterol Direct HDL Cholesterol Urine WBC (Auto) Urine Creatinine Urine Total Protein Vancomycin Trough Rheumatoid Factor Complement C4 Miscellaneous Test Flexitest 1 H Crossmatch 10/13/16 10/13/16 10/13/16 18:09 Unknown Unknown WBC 23.4 H RBC 2.83 L Hgb 8.7 L Hct 26.1 L MCV MCH MCHC RDW 18.1 H Plt Count Lymph % (Auto) [place] % (Auto) Lymph # [place] # Baso # Seg Neutrophils % Seg Neuts % (Manual) Lymphocytes % (Manual) Monocytes % (Manual) Eosinophils % (Manual) Basophils % (Manual) Nucleated RBC % Seg Neutrophils # Seg Neutrophils # Man Lymphocytes # (Manual) Monocytes # (Manual) Eosinophils # (Manual) PT INR Fibrinogen dRVVT Confirm Interp Factor V Activity POC ABG pH POC ABG pCO2 POC ABG pO2 Sodium Potassium Chloride 95.8 L Carbon Dioxide BUN 82 H Creatinine 2.6 H Glucose 152 H POC Glucose 166 H Lactic Acid Calcium Phosphorus Magnesium Direct Bilirubin ALT Alkaline Phosphatase Troponin T C-Reactive Protein Total Protein Albumin Triglycerides Cholesterol LDL Cholesterol Direct HDL Cholesterol Urine WBC (Auto) Urine Creatinine Urine Total Protein Vancomycin Trough Rheumatoid Factor Complement C4 Miscellaneous Test Crossmatch 10/14/16 10/14/16 10/14/16 05:38 06:35 08:10 WBC 20.7 H RBC 2.81 L Hgb 8.4 L Hct 27.2 L MCV MCH MCHC RDW 19.4 H Plt Count Lymph % (Auto) [place] % (Auto) Lymph # [place] # Baso # Seg Neutrophils % Seg Neuts % (Manual) Lymphocytes % (Manual) Monocytes % (Manual) Eosinophils % (Manual) Basophils % (Manual) Nucleated RBC % Seg Neutrophils # Seg Neutrophils # Man Lymphocytes # (Manual) Monocytes # (Manual) Eosinophils # (Manual) PT INR Fibrinogen dRVVT Confirm Interp Factor V Activity POC ABG pH POC ABG pCO2 POC ABG pO2 Sodium Potassium Chloride Carbon Dioxide BUN 58 H Creatinine 1.9 H Glucose 169 H POC Glucose 195 H Lactic Acid Calcium Phosphorus Magnesium Direct Bilirubin ALT Alkaline Phosphatase Troponin T C-Reactive Protein Total Protein Albumin Triglycerides Cholesterol LDL Cholesterol Direct HDL Cholesterol Urine WBC (Auto) Urine Creatinine Urine Total Protein Vancomycin Trough Rheumatoid Factor Complement C4 Miscellaneous Test Crossmatch 10/14/16 10/14/16 10/14/16 11:44 17:13 23:28 WBC RBC Hgb Hct MCV MCH MCHC RDW Plt Count Lymph % (Auto) [place] % (Auto) Lymph # [place] # Baso # Seg Neutrophils % Seg Neuts % (Manual) Lymphocytes % (Manual) Monocytes % (Manual) Eosinophils % (Manual) Basophils % (Manual) Nucleated RBC % Seg Neutrophils # Seg Neutrophils # Man Lymphocytes # (Manual) Monocytes # (Manual) Eosinophils # (Manual) PT INR Fibrinogen dRVVT Confirm Interp Factor V Activity POC ABG pH POC ABG pCO2 POC ABG pO2 Sodium Potassium Chloride Carbon Dioxide BUN Creatinine Glucose POC Glucose 174 H 121 H 151 H Lactic Acid Calcium Phosphorus Magnesium Direct Bilirubin ALT Alkaline Phosphatase Troponin T C-Reactive Protein Total Protein Albumin Triglycerides Cholesterol LDL Cholesterol Direct HDL Cholesterol Urine WBC (Auto) Urine Creatinine Urine Total Protein Vancomycin Trough Rheumatoid Factor Complement C4 Miscellaneous Test Crossmatch 10/15/16 10/15/16 10/15/16 05:06 12:26 17:48 WBC RBC Hgb Hct MCV MCH MCHC RDW Plt Count Lymph % (Auto) [place] % (Auto) Lymph # [place] # Baso # Seg Neutrophils % Seg Neuts % (Manual) Lymphocytes % (Manual) Monocytes % (Manual) Eosinophils % (Manual) Basophils % (Manual) Nucleated RBC % Seg Neutrophils # Seg Neutrophils # Man Lymphocytes # (Manual) Monocytes # (Manual) Eosinophils # (Manual) PT INR Fibrinogen dRVVT Confirm Interp Factor V Activity POC ABG pH POC ABG pCO2 POC ABG pO2 Sodium Potassium Chloride Carbon Dioxide BUN Creatinine Glucose POC Glucose 151 H 149 H 153 H Lactic Acid Calcium Phosphorus Magnesium Direct Bilirubin ALT Alkaline Phosphatase Troponin T C-Reactive Protein Total Protein Albumin Triglycerides Cholesterol LDL Cholesterol Direct HDL Cholesterol Urine WBC (Auto) Urine Creatinine Urine Total Protein Vancomycin Trough Rheumatoid Factor Complement C4 Miscellaneous Test Crossmatch 10/15/16 10/15/16 10/16/16 Unknown Unknown 00:02 WBC 23.4 H RBC 2.78 L Hgb 8.5 L Hct 25.7 L MCV MCH MCHC RDW 18.7 H Plt Count Lymph % (Auto) [place] % (Auto) Lymph # [place] # Baso # Seg Neutrophils % Seg Neuts % (Manual) Lymphocytes % (Manual) Monocytes % (Manual) Eosinophils % (Manual) Basophils % (Manual) Nucleated RBC % Seg Neutrophils # Seg Neutrophils # Man Lymphocytes # (Manual) Monocytes # (Manual) Eosinophils # (Manual) PT INR Fibrinogen dRVVT Confirm Interp Factor V Activity POC ABG pH POC ABG pCO2 POC ABG pO2 Sodium Potassium Chloride Carbon Dioxide BUN 73 H Creatinine 2.3 H Glucose 120 H POC Glucose 137 H Lactic Acid Calcium Phosphorus Magnesium Direct Bilirubin ALT Alkaline Phosphatase Troponin T C-Reactive Protein Total Protein Albumin Triglycerides Cholesterol LDL Cholesterol Direct HDL Cholesterol Urine WBC (Auto) Urine Creatinine Urine Total Protein Vancomycin Trough Rheumatoid Factor Complement C4 Miscellaneous Test Crossmatch 10/16/16 10/16/16 10/16/16 05:44 06:25 06:25 WBC 22.5 H RBC 2.76 L Hgb 8.3 L Hct 25.2 L MCV MCH MCHC RDW 18.3 H Plt Count Lymph % (Auto) [place] % (Auto) Lymph # [place] # Baso # Seg Neutrophils % Seg Neuts % (Manual) Lymphocytes % (Manual) Monocytes % (Manual) Eosinophils % (Manual) Basophils % (Manual) Nucleated RBC % Seg Neutrophils # Seg Neutrophils # Man Lymphocytes # (Manual) Monocytes # (Manual) Eosinophils # (Manual) PT INR Fibrinogen dRVVT Confirm Interp Factor V Activity POC ABG pH POC ABG pCO2 POC ABG pO2 Sodium Potassium Chloride Carbon Dioxide BUN 92 H Creatinine 3.0 H Glucose 138 H POC Glucose 110 H Lactic Acid Calcium Phosphorus Magnesium Direct Bilirubin ALT Alkaline Phosphatase Troponin T C-Reactive Protein Total Protein Albumin Triglycerides Cholesterol LDL Cholesterol Direct HDL Cholesterol Urine WBC (Auto) Urine Creatinine Urine Total Protein Vancomycin Trough Rheumatoid Factor Complement C4 Miscellaneous Test Crossmatch 10/16/16 10/16/16 10/16/16 11:27 11:48 17:36 WBC RBC Hgb Hct MCV MCH MCHC RDW Plt Count Lymph % (Auto) [place] % (Auto) Lymph # [place] # Baso # Seg Neutrophils % Seg Neuts % (Manual) Lymphocytes % (Manual) Monocytes % (Manual) Eosinophils % (Manual) Basophils % (Manual) Nucleated RBC % Seg Neutrophils # Seg Neutrophils # Man Lymphocytes # (Manual) Monocytes # (Manual) Eosinophils # (Manual) PT INR Fibrinogen dRVVT Confirm Interp Factor V Activity POC ABG pH 7.582 H POC ABG pCO2 27.4 L POC ABG pO2 110 H Sodium Potassium Chloride Carbon Dioxide BUN Creatinine Glucose POC Glucose 121 H 133 H Lactic Acid Calcium Phosphorus Magnesium Direct Bilirubin ALT Alkaline Phosphatase Troponin T C-Reactive Protein Total Protein Albumin Triglycerides Cholesterol LDL Cholesterol Direct HDL Cholesterol Urine WBC (Auto) Urine Creatinine Urine Total Protein Vancomycin Trough Rheumatoid Factor Complement C4 Miscellaneous Test Crossmatch 10/16/16 10/17/16 10/17/16 20:48 04:24 04:24 WBC 21.4 H RBC 2.72 L Hgb 8.0 L Hct 25.2 L MCV MCH MCHC RDW 18.0 H Plt Count Lymph % (Auto) [place] % (Auto) Lymph # [place] # Baso # Seg Neutrophils % Seg Neuts % (Manual) Lymphocytes % (Manual) Monocytes % (Manual) Eosinophils % (Manual) Basophils % (Manual) Nucleated RBC % Seg Neutrophils # Seg Neutrophils # Man Lymphocytes # (Manual) Monocytes # (Manual) Eosinophils # (Manual) PT INR Fibrinogen dRVVT Confirm Interp Factor V Activity POC ABG pH 7.561 H POC ABG pCO2 24.4 L POC ABG pO2 77 L Sodium 148 H Potassium Chloride Carbon Dioxide BUN 104 H Creatinine 3.0 H Glucose 149 H POC Glucose Lactic Acid Calcium Phosphorus Magnesium Direct Bilirubin ALT Alkaline Phosphatase 138 H Troponin T C-Reactive Protein Total Protein 6.2 L Albumin 1.5 L Triglycerides Cholesterol LDL Cholesterol Direct HDL Cholesterol Urine WBC (Auto) Urine Creatinine Urine Total Protein Vancomycin Trough Rheumatoid Factor Complement C4 Miscellaneous Test Crossmatch 10/17/16 10/17/16 10/17/16 06:02 12:17 17:14 WBC RBC Hgb Hct MCV MCH MCHC RDW Plt Count Lymph % (Auto) [place] % (Auto) Lymph # [place] # Baso # Seg Neutrophils % Seg Neuts % (Manual) Lymphocytes % (Manual) Monocytes % (Manual) Eosinophils % (Manual) Basophils % (Manual) Nucleated RBC % Seg Neutrophils # Seg Neutrophils # Man Lymphocytes # (Manual) Monocytes # (Manual) Eosinophils # (Manual) PT INR Fibrinogen dRVVT Confirm Interp Factor V Activity POC ABG pH POC ABG pCO2 POC ABG pO2 Sodium Potassium Chloride Carbon Dioxide BUN Creatinine Glucose POC Glucose 170 H 167 H 126 H Lactic Acid Calcium Phosphorus Magnesium Direct Bilirubin ALT Alkaline Phosphatase Troponin T C-Reactive Protein Total Protein Albumin Triglycerides Cholesterol LDL Cholesterol Direct HDL Cholesterol Urine WBC (Auto) Urine Creatinine Urine Total Protein Vancomycin Trough Rheumatoid Factor Complement C4 Miscellaneous Test Crossmatch 10/17/16 10/18/16 10/18/16 23:17 04:00 04:00 WBC 20.7 H RBC 2.47 L Hgb 7.4 L Hct 22.9 L MCV MCH MCHC RDW 17.5 H Plt Count Lymph % (Auto) [place] % (Auto) Lymph # [place] # Baso # Seg Neutrophils % Seg Neuts % (Manual) Lymphocytes % (Manual) Monocytes % (Manual) Eosinophils % (Manual) Basophils % (Manual) Nucleated RBC % Seg Neutrophils # Seg Neutrophils # Man Lymphocytes # (Manual) Monocytes # (Manual) Eosinophils # (Manual) PT INR Fibrinogen dRVVT Confirm Interp Factor V Activity POC ABG pH POC ABG pCO2 POC ABG pO2 Sodium 149 H Potassium Chloride 107.9 H Carbon Dioxide 20 L BUN 117 H Creatinine 3.2 H Glucose 119 H POC Glucose 121 H Lactic Acid Calcium Phosphorus Magnesium Direct Bilirubin ALT Alkaline Phosphatase Troponin T C-Reactive Protein Total Protein Albumin Triglycerides Cholesterol LDL Cholesterol Direct HDL Cholesterol Urine WBC (Auto) Urine Creatinine Urine Total Protein Vancomycin Trough Rheumatoid Factor Complement C4 Miscellaneous Test Crossmatch 10/18/16 10/18/16 10/18/16 05:23 10:46 17:30 WBC RBC Hgb Hct MCV MCH MCHC RDW Plt Count Lymph % (Auto) [place] % (Auto) Lymph # [place] # Baso # Seg Neutrophils % Seg Neuts % (Manual) Lymphocytes % (Manual) Monocytes % (Manual) Eosinophils % (Manual) Basophils % (Manual) Nucleated RBC % Seg Neutrophils # Seg Neutrophils # Man Lymphocytes # (Manual) Monocytes # (Manual) Eosinophils # (Manual) PT INR Fibrinogen dRVVT Confirm Interp Factor V Activity POC ABG pH POC ABG pCO2 POC ABG pO2 Sodium Potassium Chloride Carbon Dioxide BUN Creatinine Glucose POC Glucose 119 H 155 H 124 H Lactic Acid Calcium Phosphorus Magnesium Direct Bilirubin ALT Alkaline Phosphatase Troponin T C-Reactive Protein Total Protein Albumin Triglycerides Cholesterol LDL Cholesterol Direct HDL Cholesterol Urine WBC (Auto) Urine Creatinine Urine Total Protein Vancomycin Trough Rheumatoid Factor Complement C4 Miscellaneous Test Crossmatch 10/19/16 10/19/16 10/19/16 04:00 04:00 05:25 WBC 17.4 H RBC 2.54 L Hgb 7.7 L Hct 23.6 L MCV MCH MCHC RDW 17.3 H Plt Count Lymph % (Auto) [place] % (Auto) Lymph # [place] # Baso # Seg Neutrophils % Seg Neuts % (Manual) Lymphocytes % (Manual) Monocytes % (Manual) Eosinophils % (Manual) Basophils % (Manual) Nucleated RBC % Seg Neutrophils # Seg Neutrophils # Man Lymphocytes # (Manual) Monocytes # (Manual) Eosinophils # (Manual) PT INR Fibrinogen dRVVT Confirm Interp Factor V Activity POC ABG pH POC ABG pCO2 POC ABG pO2 Sodium Potassium Chloride Carbon Dioxide BUN 72 H Creatinine 2.1 H Glucose 116 H POC Glucose 119 H Lactic Acid Calcium Phosphorus Magnesium Direct Bilirubin ALT Alkaline Phosphatase Troponin T C-Reactive Protein Total Protein Albumin Triglycerides Cholesterol LDL Cholesterol Direct HDL Cholesterol Urine WBC (Auto) Urine Creatinine Urine Total Protein Vancomycin Trough Rheumatoid Factor Complement C4 Miscellaneous Test Crossmatch 10/19/16 10/19/16 10/20/16 11:46 23:59 06:00 WBC RBC Hgb Hct MCV MCH MCHC RDW Plt Count Lymph % (Auto) [place] % (Auto) Lymph # [place] # Baso # Seg Neutrophils % Seg Neuts % (Manual) Lymphocytes % (Manual) Monocytes % (Manual) Eosinophils % (Manual) Basophils % (Manual) Nucleated RBC % Seg Neutrophils # Seg Neutrophils # Man Lymphocytes # (Manual) Monocytes # (Manual) Eosinophils # (Manual) PT INR Fibrinogen dRVVT Confirm Interp Factor V Activity POC ABG pH POC ABG pCO2 POC ABG pO2 Sodium Potassium Chloride Carbon Dioxide 17 L BUN 94 H Creatinine 2.7 H Glucose POC Glucose 116 H 117 H Lactic Acid Calcium Phosphorus Magnesium Direct Bilirubin ALT Alkaline Phosphatase Troponin T C-Reactive Protein Total Protein Albumin Triglycerides Cholesterol LDL Cholesterol Direct HDL Cholesterol Urine WBC (Auto) Urine Creatinine Urine Total Protein Vancomycin Trough Rheumatoid Factor Complement C4 Miscellaneous Test Crossmatch 10/20/16 10/20/16 10/20/16 06:00 11:49 18:36 WBC 19.7 H RBC 2.51 L Hgb 7.7 L Hct 23.5 L MCV MCH MCHC RDW 17.5 H Plt Count Lymph % (Auto) [place] % (Auto) Lymph # [place] # Baso # Seg Neutrophils % Seg Neuts % (Manual) Lymphocytes % (Manual) Monocytes % (Manual) Eosinophils % (Manual) Basophils % (Manual) Nucleated RBC % Seg Neutrophils # Seg Neutrophils # Man Lymphocytes # (Manual) Monocytes # (Manual) Eosinophils # (Manual) PT INR Fibrinogen dRVVT Confirm Interp Factor V Activity POC ABG pH POC ABG pCO2 POC ABG pO2 Sodium Potassium Chloride Carbon Dioxide BUN Creatinine Glucose POC Glucose 117 H 127 H Lactic Acid Calcium Phosphorus Magnesium Direct Bilirubin ALT Alkaline Phosphatase Troponin T C-Reactive Protein Total Protein Albumin Triglycerides Cholesterol LDL Cholesterol Direct HDL Cholesterol Urine WBC (Auto) Urine Creatinine Urine Total Protein Vancomycin Trough Rheumatoid Factor Complement C4 Miscellaneous Test Crossmatch 10/20/16 10/21/16 10/21/16 23:39 04:00 05:54 WBC RBC Hgb Hct MCV MCH MCHC RDW Plt Count Lymph % (Auto) [place] % (Auto) Lymph # [place] # Baso # Seg Neutrophils % Seg Neuts % (Manual) Lymphocytes % (Manual) Monocytes % (Manual) Eosinophils % (Manual) Basophils % (Manual) Nucleated RBC % Seg Neutrophils # Seg Neutrophils # Man Lymphocytes # (Manual) Monocytes # (Manual) Eosinophils # (Manual) PT INR Fibrinogen dRVVT Confirm Interp Factor V Activity POC ABG pH POC ABG pCO2 POC ABG pO2 Sodium Potassium 5.4 H D Chloride Carbon Dioxide 15 L BUN 110 H Creatinine 3.0 H Glucose POC Glucose 114 H 119 H Lactic Acid Calcium Phosphorus Magnesium Direct Bilirubin ALT Alkaline Phosphatase Troponin T C-Reactive Protein Total Protein Albumin Triglycerides Cholesterol LDL Cholesterol Direct HDL Cholesterol Urine WBC (Auto) Urine Creatinine Urine Total Protein Vancomycin Trough Rheumatoid Factor Complement C4 Miscellaneous Test Crossmatch 10/21/16 10/22/16 10/22/16 23:46 05:18 06:40 WBC RBC Hgb Hct MCV MCH MCHC RDW Plt Count Lymph % (Auto) [place] % (Auto) Lymph # [place] # Baso # Seg Neutrophils % Seg Neuts % (Manual) Lymphocytes % (Manual) Monocytes % (Manual) Eosinophils % (Manual) Basophils % (Manual) Nucleated RBC % Seg Neutrophils # Seg Neutrophils # Man Lymphocytes # (Manual) Monocytes # (Manual) Eosinophils # (Manual) PT INR Fibrinogen dRVVT Confirm Interp Factor V Activity POC ABG pH POC ABG pCO2 POC ABG pO2 Sodium 130 L D Potassium Chloride 92.4 L Carbon Dioxide 20 L BUN 50 H Creatinine 1.6 H Glucose 589 H* POC Glucose 108 H 109 H Lactic Acid Calcium 7.8 L D Phosphorus Magnesium Direct Bilirubin ALT Alkaline Phosphatase Troponin T C-Reactive Protein Total Protein Albumin Triglycerides Cholesterol LDL Cholesterol Direct HDL Cholesterol Urine WBC (Auto) Urine Creatinine Urine Total Protein Vancomycin Trough Rheumatoid Factor Complement C4 Miscellaneous Test Crossmatch 10/22/16 10/22/16 06:40 06:40 WBC 14.0 H RBC 2.03 L Hgb 7.0 L Hct 20.5 L MCV 98 H MCH 34 H MCHC 35 H RDW 17.8 H Plt Count Lymph % (Auto) [place] % (Auto) 9.9 H Lymph # [place] # 1.4 H Baso # 0.2 H Seg Neutrophils % 72.0 H Seg Neuts % (Manual) Lymphocytes % (Manual) Monocytes % (Manual) Eosinophils % (Manual) Basophils % (Manual) Nucleated RBC % Seg Neutrophils # 10.0 H Seg Neutrophils # Man Lymphocytes # (Manual) Monocytes # (Manual) Eosinophils # (Manual) PT INR Fibrinogen dRVVT Confirm Interp Factor V Activity POC ABG pH POC ABG pCO2 POC ABG pO2 Sodium Potassium Chloride Carbon Dioxide BUN Creatinine Glucose POC Glucose Lactic Acid Calcium Phosphorus Magnesium 1.60 L Direct Bilirubin ALT Alkaline Phosphatase Troponin T C-Reactive Protein Total Protein Albumin Triglycerides Cholesterol LDL Cholesterol Direct HDL Cholesterol Urine WBC (Auto) Urine Creatinine Urine Total Protein Vancomycin Trough Rheumatoid Factor Complement C4 Miscellaneous Test Crossmatch Allied health notes reviewed: RT
[2016-10-22] MEDS: DIFLUCAN 200 MG/100 ML BAG IV SCH (18:40)
[2016-10-22] MEDS ORDERED: TPN ADULT 2,016 ML IV SCH (20:00)
[2016-10-23] MEDS: LOPRESSOR IV SCH ×6 (01:50→22:03)
[2016-10-23] MEDS: HumuLIN R SUB-Q SCH ×4 (06:00→18:47)
[2016-10-23] MEDS: ZOSYN/NS 2.25 GM/50ML 2.25 GM/50 ML BAG IV SCH ×3 (06:11→22:00)
[2016-10-23] MEDS: fentaNYL DRIP Premix 2,000 MCG/100 ML BAG IV SCH ×2 (06:13→19:59)
[2016-10-23 07:01] LABS: BUN/Creatinine Ratio 36.19; Calcium 8.3 mg/dL (8.4-10.2)
--- NOTE | 2016-10-23 08:01 | Progress Note ---
Assessment and Plan Assessment and plan: --Acute hypoxic respiratory failure, status post tracheostomy, on vent more than 96hrs Pulmonary following --Acute massive CVA with mass effect; continue antiplatelets and statins --Toxic metabolic encephalopathy; supportive care --Severe sepsis with septic shock; requiring discharged --Sepsis with UTI candidemia peritonitis due to gastric perforation and dislodged PEG Continue antibiotics per ID --Paroxysmal atrial fibrillation with rapid ventricular rate, failed cardioversion Continue current medications, Not a candidate for anticoagulation secondary to anemia thrombocytopenia and massive CVA --Acute on chronic kidney disease; nephrology following; hemodialysis as needed --Acute blood loss anemia requiring multiple units of PRBC transfusion, closely monitor H&H and additional transfusion if needed --Candidemia. On Diflucan --Diabetes mellitus type 2, Insulin/SSI --Severe protein caloric malnutrition, nutrition supplements to proceeding --s/p Thrombocytopenia. Now resolved --DVT prophylaxis, SCDs, no pharmacological agent given anemia , thrombocytopenia, massive stroke --Full code status, very poor prognosis Had a family meeting Monday10/10/16 plan of care poor prognosis was discussed. Present at meeting was the Risk management staff, analytical research program manager and hospitalist , patient's son and patients' sister. Had another family meeting Monday10/14/16 at 10:00am with Dr. Nazario, , Shipmaster and patient's daughter, discussed diagnosis,plan and prognosis, and all her questions were answered. Dispo. Very poor prognosis. Patient needs LTAC placement. Discussed the plan of care with the brother Bebeto at [phone], answered all his questions Critical care time 31 minutes History Interval history: Patient intubated on ventilator support No overnight events noted Hospitalist Physical - Constitutional Vitals: Temp Pulse Resp BP Pulse Ox 98.4 F 118 H 20 105/72 100 10/23/16 03:37 10/23/16 07:30 10/23/16 07:30 10/23/16 07:30 10/23/16 07:30 General appearance: Present: no acute distress, obese, other (on vent, non- responsive) - EENT Eyes: Present: PERRL, EOM intact - Neck Neck: Present: supple, normal ROM - Respiratory Respiratory effort: normal Respiratory: bilateral: diminished, rhonchi, negative: rales, wheezing - Cardiovascular Rhythm: regular Heart Sounds: Present: S1 & S2 - Extremities Extremities: abnormal (contacted) Extremity abnormal: edema Peripheral Pulses: within normal limits - Abdominal General gastrointestinal: soft, non-tender, non-distended, normal bowel sounds - Integumentary Integumentary: Present: clear, warm - Psychiatric Psychiatric: other (uncommunicative) - Neurologic Neurologic: other (noncommunicative) Results - Labs CBC & Chem 7: 10/22/16 06:40 10/23/16 06:00 Labs: Laboratory Last Values WBC 14.0 K/mm3 (4.5-11.0) H 10/22/16 06:40 RBC 2.03 M/mm3 (3.65-5.03) L 10/22/16 06:40 Hgb 7.0 gm/dl (10.1-14.3) L 10/22/16 06:40 Hct 20.5 % (30.3-42.9) L 10/22/16 06:40 MCV 98 fl (79-97) H 10/22/16 06:40 MCH 34 pg (28-32) H 10/22/16 06:40 MCHC 35 % (30-34) H 10/22/16 06:40 RDW 17.8 % (13.2-15.2) H 10/22/16 06:40 Plt Count 302 K/mm3 (140-440) 10/22/16 06:40 Lymph % (Auto) 15.9 % (13.4-35.0) 10/22/16 06:40 Lewis % (Auto) 9.9 % (0.0-7.3) H 10/22/16 06:40 Eos % (Auto) 0.8 % (0.0-4.3) 10/22/16 06:40 Baso % (Auto) 1.4 % (0.0-1.8) 10/22/16 06:40 Lymph # 2.2 K/mm3 (1.2-5.4) 10/22/16 06:40 Lewis # 1.4 K/mm3 (0.0-0.8) H 10/22/16 06:40 Eos # 0.1 K/mm3 (0.0-0.4) 10/22/16 06:40 Baso # 0.2 K/mm3 (0.0-0.1) H 10/22/16 06:40 Add Manual Diff Complete 10/10/16 05:00 Total Counted 100 10/10/16 05:00 Seg Neutrophils % 72.0 % (40.0-70.0) H 10/22/16 06:40 Seg Neuts % (Manual) 61.0 % (40.0-70.0) 10/10/16 05:00 Band Neutrophils % 24.0 % 10/10/16 05:00 Lymphocytes % (Manual) 10.0 % (13.4-35.0) L 10/10/16 05:00 Reactive Lymphs % (Man) 0 % 10/10/16 05:00 Monocytes % (Manual) 2.0 % (0.0-7.3) 10/10/16 05:00 Eosinophils % (Manual) 0 % (0.0-4.3) 10/10/16 05:00 Basophils % (Manual) 0 % (0.0-1.8) 10/10/16 05:00 Metamyelocytes % 3.0 % 10/10/16 05:00 Myelocytes % 0 % 10/10/16 05:00 Promyelocytes % 0 % 10/10/16 05:00 Blast Cells % 0 % 10/10/16 05:00 Nucleated RBC % 4.0 % (0.0-0.9) H 10/10/16 05:00 Seg Neutrophils # 10.0 K/mm3 (1.8-7.7) H 10/22/16 06:40 Seg Neutrophils # Man 11.3 K/mm3 (1.8-7.7) H 10/10/16 05:00 Band Neutrophils # 4.4 K/mm3 10/10/16 05:00 Lymphocytes # (Manual) 1.9 K/mm3 (1.2-5.4) 10/10/16 05:00 Abs React Lymphs (Man) 0.0 K/mm3 10/10/16 05:00 Monocytes # (Manual) 0.4 K/mm3 (0.0-0.8) 10/10/16 05:00 Eosinophils # (Manual) 0.0 K/mm3 (0.0-0.4) 10/10/16 05:00 Basophils # (Manual) 0.0 K/mm3 (0.0-0.1) 10/10/16 05:00 Metamyelocytes # 0.6 K/mm3 10/10/16 05:00 Myelocytes # 0.0 K/mm3 10/10/16 05:00 Promyelocytes # 0.0 K/mm3 10/10/16 05:00 Blast Cells # 0.0 K/mm3 10/10/16 05:00 Pathologist Review 09/13/16 04:00 WBC Morphology Not Reportable 10/10/16 05:00 Hypersegmented Neuts Not Reportable 10/10/16 05:00 Hyposegmented Neuts Not Reportable 10/10/16 05:00 Hypogranular Neuts Not Reportable 10/10/16 05:00 Smudge Cells Not Reportable 10/10/16 05:00 Toxic Granulation Not Reportable 10/10/16 05:00 Toxic Vacuolation Not Reportable 10/10/16 05:00 Dohle Bodies Not Reportable 10/10/16 05:00 Pelger-Huet Anomaly Not Reportable 10/10/16 05:00 Jasmina Rods Not Reportable 10/10/16 05:00 Platelet Estimate Consistent w auto 10/10/16 05:00 Clumped Platelets Not Reportable 10/10/16 05:00 Plt Clumps, EDTA Not Reportable 10/10/16 05:00 Large Platelets Not Reportable 10/10/16 05:00 Giant Platelets Not Reportable 10/10/16 05:00 Platelet Satelliting Not Reportable 10/10/16 05:00 Plt Morphology Comment Not Reportable 10/10/16 05:00 RBC Morphology Not Reportable 10/10/16 05:00 Dimorphic RBCs Not Reportable 10/10/16 05:00 Polychromasia Rare 10/10/16 05:00 Hypochromasia 1+ 10/10/16 05:00 Poikilocytosis Not Reportable 10/10/16 05:00 Anisocytosis 1+ 10/10/16 05:00 Microcytosis Not Reportable 10/10/16 05:00 Macrocytosis 1+ 10/10/16 05:00 Spherocytes Not Reportable 10/10/16 05:00 Pappenheimer Bodies Not Reportable 10/10/16 05:00 Sickle Cells Not Reportable 10/10/16 05:00 Target Cells Not Reportable 10/10/16 05:00 Tear Drop Cells Not Reportable 10/10/16 05:00 Ovalocytes Not Reportable 10/10/16 05:00 Stomatocytes Few 10/06/16 03:50 Helmet Cells Not Reportable 10/10/16 05:00 Monet-[place] Bodies Not Reportable 10/10/16 05:00 P[place] Rings Not Reportable 10/10/16 05:00 Chuck Cells Not Reportable 10/10/16 05:00 Bite Cells Not Reportable 10/10/16 05:00 Crenated Cell Not Reportable 10/10/16 05:00 Elliptocytes Not Reportable 10/10/16 05:00 Acanthocytes (Spur) Not Reportable 10/10/16 05:00 Rouleaux Not Reportable 10/10/16 05:00 Hemoglobin C Crystals Not Reportable 10/10/16 05:00 Schistocytes Not Reportable 10/10/16 05:00 Malaria parasites Not Reportable 10/10/16 05:00 ESR > 140.0 mm/Hr (0-20) 09/08/16 11:48 Jun Bodies Not Reportable 10/10/16 05:00 Hem Pathologist Commnt No 10/10/16 05:00 PT 19.0 Sec. (12.2-14.9) H 10/09/16 03:45 INR 1.51 (0.87-1.13) H 10/09/16 03:45 APTT 33.0 Sec. (24.2-36.6) 10/09/16 03:45 Thrombin Time 16.8 Sec. (15.1-19.6) 09/03/16 00:10 Fibrinogen 750 mg/dl (211-480) H 09/08/16 11:48 Lupus Anticoagulant see below 09/12/16 09:59 LA PTT Baseline See scanned report 09/12/16 09:59 dRVVT Confirm Interp Positive (Negative) H 09/12/16 09:59 dRVVT Screen 50:50 See scanned report 09/12/16 09:59 dRVVT Mix Interpret See scanned report 09/12/16 09:59 Protein C Antigen 122 % (70-140) 09/08/16 15:35 Free Protein S 97 % normal (50-147) 09/08/16 15:35 Total Protein S 109 % (70-140) 09/08/16 15:35 Antithrombin III Ag 100 % (80-120) 09/08/16 15:35 Heparin Anti-Xa, Unfract Negative (Negative) 09/29/16 13:35 Factor V Activity 182 % (65-150) H 09/08/16 15:35 POC ABG pH 7.561 (7.35-7.45) H 10/16/16 20:48 POC ABG pCO2 24.4 (35-45) L 10/16/16 20:48 POC ABG pO2 77 (80-105) L 10/16/16 20:48 POC ABG HCO3 21.9 10/16/16 20:48 POC ABG Total CO2 23 10/16/16 20:48 POC ABG O2 Sat 97 10/16/16 20:48 POC ABG Base Excess 0 10/16/16 20:48 FiO2 25 % 10/16/16 20:48 Sodium 133 mmol/L (137-145) L 10/23/16 06:00 Potassium 3.5 mmol/L (3.6-5.0) L 10/23/16 06:00 Chloride 96.1 mmol/L (98-107) L 10/23/16 06:00 Carbon Dioxide 18 mmol/L (22-30) L 10/23/16 06:00 Anion Gap 22 mmol/L 10/23/16 06:00 BUN 76 mg/dL (7-17) H 10/23/16 06:00 Creatinine 2.1 mg/dL (0.7-1.2) H 10/23/16 06:00 Estimated GFR 31 ml/min 10/23/16 06:00 BUN/Creatinine Ratio 36.19 % 10/23/16 06:00 Glucose 99 mg/dL (65-100) 10/23/16 06:00 POC Glucose 133 (70-105) H 10/23/16 04:58 Osmolality 351 Mosm/kg 09/16/16 11:47 Lactic Acid 4.50 mmol/L (0.7-2.0) H* 09/28/16 07:25 Calcium 8.3 mg/dL (8.4-10.2) L 10/23/16 06:00 Phosphorus 3.10 mg/dL (2.5-4.5) 10/23/16 06:00 Magnesium 2.00 mg/dL (1.7-2.3) 10/23/16 06:00 Total Bilirubin 0.30 mg/dL (0.1-1.2) 10/17/16 04:24 Direct Bilirubin 0.3 mg/dL (0-0.2) H 10/10/16 05:00 Indirect Bilirubin 0.1 mg/dL 10/10/16 05:00 AST 39 units/L (5-40) 10/17/16 04:24 ALT 13 units/L (7-56) 10/17/16 04:24 Alkaline Phosphatase 138 units/L (35-129) H 10/17/16 04:24 Ammonia 27.0 umol/L (25-60) 09/07/16 08:37 Total Creatine Kinase 121 units/L (30-135) 09/29/16 20:12 CK-MB (CK-2) < 1.0 ng/mL (0.0-4.0) 09/29/16 20:12 CK-MB (CK-2) Rel Index 0.8 (0-4) 09/29/16 20:12 Troponin T 0.204 ng/mL (0.00-0.029) H* 09/29/16 20:12 C-Reactive Protein 15.80 mg/dL (0.00-1.30) H 10/11/16 04:15 Total Protein 6.2 g/dL (6.3-8.2) L 10/17/16 04:24 Albumin 1.5 g/dL (3.9-5) L 10/17/16 04:24 Albumin/Globulin Ratio 0.3 % 10/17/16 04:24 Triglycerides 137 mg/dL (2-149) 09/29/16 20:12 Cholesterol 31 mg/dL (50-199) L 09/29/16 20:12 LDL Cholesterol Direct 4 mg/dL (50-130) L 09/29/16 20:12 HDL Cholesterol 3 mg/dL (40-59) L 09/29/16 20:12 Cholesterol/HDL Ratio 10.33 % 09/29/16 20:12 Angiotensin Convert Enz See scanned report 09/08/16 11:48 Renin 0.99 ng/mL/h (0.25-5.82) 10/07/16 10:56 Aldosterone <1 ng/dL () 10/07/16 10:56 Aldosterone/Renin Dir see below 10/07/16 10:56 Serotonin Release Assay See scanned report 09/29/16 13:35 TSH 1.010 mlU/mL (0.270-4.200) 09/07/16 08:37 HCG, Qual Negative (Negative) 09/03/16 00:10 Urine Color [place] (Yellow) 10/07/16 18:30 Urine Turbidity Turbid (Clear) 10/07/16 18:30 Urine pH 7.0 (5.0-7.0) 10/07/16 18:30 Ur Specific [place] 1.012 (1.003-1.030) 10/07/16 18:30 Urine Protein 100 mg/dl mg/dL (Negative) 10/07/16 18:30 Urine Glucose (UA) Neg mg/dL (Negative) 10/07/16 18:30 Urine Ketones Neg mg/dL (Negative) 10/07/16 18:30 Urine Blood Lg (Negative) 10/07/16 18:30 Urine Nitrite Neg (Negative) 10/07/16 18:30 Urine Bilirubin Neg (Negative) 10/07/16 18:30 Urine Urobilinogen < 2.0 mg/dL (<2.0) 10/07/16 18:30 Ur Leukocyte Esterase Lg (Negative) 10/07/16 18:30 Urine WBC (Auto) > 182.0 /HPF (0.0-6.0) H 10/07/16 18:30 Urine RBC (Auto) > 182.0 /HPF (0.0-6.0) 10/07/16 18:30 U Epithel Cells (Auto) 1.0 /HPF (0-13.0) 10/07/16 18:30 Urine Bacteria (Auto) 3+ /HPF (Negative) 10/07/16 18:30 Urine WBC Clumps 2+ /HPF 09/07/16 02:47 Hyaline Casts 4 /LPF 09/07/16 02:47 Urine Mucus Few /HPF 10/07/16 18:30 Urine Yeast (Budding) 3+ /HPF 10/07/16 18:30 Urine Eosinophils None seen (None Seen) 09/07/16 16:00 Urine Total Volume 1350 09/21/16 12:00 Urine Creatinine 54.8 mg/dL (0.1-20.0) H 09/21/16 12:00 Height (in) 67.0 inches 09/21/16 12:00 Weight (lb) 92.0 lbs 09/21/16 12:00 Creatinine Clearance 15 09/21/16 12:00 Urine Sodium 36 mEq/L 09/16/16 19:19 Urine Total Protein 16 mg/dL (5-11.8) H 09/16/16 19:19 Vancomycin Trough 2.3 ug/mL (5.0-20.0) L 09/21/16 13:00 Random Vancomycin 17.0 ug/mL (0-40.0) 10/20/16 06:00 Urine Opiates Screen Presumptive negative 09/03/16 15:11 Urine Methadone Screen Presumptive positive 09/03/16 15:11 Ur Barbiturates Screen Presumptive positive 09/03/16 15:11 Ur Phencyclidine Scrn Presumptive negative 09/03/16 15:11 Ur Amphetamines Screen Presumptive negative 09/03/16 15:11 U Benzodiazepines Scrn Presumptive negative 09/03/16 15:11 Urine Cocaine Screen Presumptive negative 09/03/16 15:11 U Marijuana (THC) Screen Presumptive positive 09/03/16 15:11 Drugs of Abuse Note Disclamer 09/03/16 15:11 Rheumatoid Factor 24 IU/ml (0-13) H 09/08/16 11:48 SAHIL Screen Negative (Negative) 09/07/16 09:20 Proteinase 3 (PR3) Ab <1.0 AI (<1.0) 09/07/16 09:20 Myeloperoxidase Ab <1.0 AI (<1.0) 09/07/16 09:20 Sjogren's Antibody <1.0 AI (<1.0) 09/08/16 15:35 Scl-70 Scleroderma Ab <1.0 AI (<1.0) 09/08/16 15:35 Centromere B Antibody <1.0 AI (<1.0) 09/08/16 12:02 Heparin-induced Plt Ab Negative (Negative) 09/29/16 13:35 UF Heparin High Dose 11 % Release 09/29/16 13:35 SUDHIR UFH Low Dose 0.1 6 % Release 09/29/16 13:35 SUDHIR UFH Low Dose 0.5 8 % Release 09/29/16 13:35 Cardiolipid IgG Ab <14 GPL (<=14) 09/12/16 09:59 Cardiolipid IgA Ab <11 APL (<=11) 09/12/16 09:59 Cardiolipid IgM Ab <12 MPL (<=12) 09/12/16 09:59 Complement C3 148 mg/dL (90-180) 09/07/16 09:20 Complement C4 58 mg/dL (16-47) H 09/07/16 09:20 RPR Nonreactive (Nonreactive) 09/08/16 11:48 Hepatitis A IgM Ab Non-reactive (NonReactive) 09/24/16 14:40 Hep Bs Antigen Non-reactive (Negative) 09/24/16 14:40 Hep B Core IgM Ab Non-reactive (NonReactive) 09/24/16 14:40 Hepatitis C Antibody Non-reactive (NonReactive) 09/24/16 14:40 HIV 1&2 Antibody Rapid Non react (Non React) 09/08/16 11:48 HIV P24 Antigen Non react (Non React) 09/08/16 11:48 Miscellaneous Test Flexitest 1 H 10/13/16 09:20 Blood Type A POSITIVE 10/09/16 07:20 Antibody Screen Negative 10/09/16 07:20 DELORIS Antibody Screen Negative 09/25/16 10:30 Crossmatch See Detail 10/09/16 07:20
[2016-10-23] MEDS: KCL 10MEQ/100ML 10 MEQ/100 ML BAG IV SCH ×3 (08:55→11:16)
[2016-10-23] MEDS: PROTONIX IV SCH (09:04)
[2016-10-23] MEDS: APRESOLINE IV PRN ×2 (12:08→22:10)
--- NOTE | 2016-10-23 12:37 | Progress Note ---
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 No emergent indication today * Pressors prn MAP>65 * Rate control per cardiology * Transfusion of pRBC per primary team * Abx/antifungal per ID * Surgery recommendations noted * Vent management per critical care * Dose medications for renal function * Avoid potential nephrotoxins Subjective Date of service: 10/23/16 Principal diagnosis: Acute resp failure on MVS; S/P Acute CVA; Acute Encephalopathy; JUANITA Interval history: No acute events overnight. Objective - Vital Signs Vital signs: Vital Signs - 12hr 10/23/16 10/23/16 10/23/16 00:45 00:50 01:00 Temperature Pulse Rate 96 H 103 H Respiratory 18 Rate Respiratory Rate [ Generalized] Blood Pressure 157/80 149/83 O2 Sat by Pulse 100 100 Oximetry O2 Sat by Pulse 100 Oximetry [ Assessment] 10/23/16 10/23/16 10/23/16 01:30 01:50 02:00 Temperature Pulse Rate 113 H 104 H 109 H Respiratory 17 20 Rate Respiratory Rate [ Generalized] Blood Pressure 167/86 136/79 136/79 O2 Sat by Pulse 100 100 Oximetry O2 Sat by Pulse Oximetry [ Assessment] 10/23/16 10/23/16 10/23/16 02:30 03:00 03:30 Temperature Pulse Rate 110 H 113 H 104 H Respiratory 17 18 19 Rate Respiratory Rate [ Generalized] Blood Pressure 137/83 136/82 137/80 O2 Sat by Pulse 100 100 100 Oximetry O2 Sat by Pulse Oximetry [ Assessment] 10/23/16 10/23/16 10/23/16 03:37 04:00 04:08 Temperature 98.4 F Pulse Rate 121 H 120 H Respiratory 19 Rate Respiratory Rate [ Generalized] Blood Pressure 131/86 131/86 O2 Sat by Pulse 100 100 Oximetry O2 Sat by Pulse Oximetry [ Assessment] 10/23/16 10/23/16 10/23/16 04:30 05:00 05:30 Temperature Pulse Rate 116 H 109 H 108 H Respiratory 17 17 16 Rate Respiratory Rate [ Generalized] Blood Pressure 135/81 137/66 118/64 O2 Sat by Pulse 100 100 100 Oximetry O2 Sat by Pulse Oximetry [ Assessment] 10/23/16 10/23/16 10/23/16 05:53 06:00 06:30 Temperature Pulse Rate 95 H 97 H 99 H Respiratory 23 20 Rate Respiratory Rate [ Generalized] Blood Pressure 126/66 126/66 109/69 O2 Sat by Pulse 100 99 Oximetry O2 Sat by Pulse Oximetry [ Assessment] 10/23/16 10/23/16 10/23/16 07:00 07:30 08:00 Temperature 99.3 F Pulse Rate 114 H 118 H 111 H Respiratory 20 20 19 Rate Respiratory Rate [ Generalized] Blood Pressure 105/72 105/72 147/74 O2 Sat by Pulse 100 100 100 Oximetry O2 Sat by Pulse Oximetry [ Assessment] 10/23/16 10/23/16 10/23/16 08:30 08:40 09:00 Temperature Pulse Rate 113 H 110 H 109 H Respiratory 19 17 17 Rate Respiratory Rate [ Generalized] Blood Pressure 135/84 135/84 139/85 O2 Sat by Pulse 100 100 100 Oximetry O2 Sat by Pulse Oximetry [ Assessment] 10/23/16 10/23/16 10/23/16 09:04 09:30 10:00 Temperature Pulse Rate 111 H 96 H 100 H Respiratory 16 19 Rate Respiratory 16 Rate [ Generalized] Blood Pressure 139/85 137/81 144/87 O2 Sat by Pulse 100 100 Oximetry O2 Sat by Pulse Oximetry [ Assessment] 10/23/16 10/23/16 10/23/16 10:30 11:00 12:08 Temperature Pulse Rate 120 H 106 H 113 H Respiratory 25 H 17 Rate Respiratory Rate [ Generalized] Blood Pressure 144/87 173/97 182/98 O2 Sat by Pulse 100 100 Oximetry O2 Sat by Pulse Oximetry [ Assessment] 10/23/16 12:27 Temperature Pulse Rate 115 H Respiratory 17 Rate Respiratory Rate [ Generalized] Blood Pressure 176/96 O2 Sat by Pulse 100 Oximetry O2 Sat by Pulse Oximetry [ Assessment] - General Appearance General appearance: intubated (via trach) EENT: ATNC Respiratory: Present: Other (coarse breath sounds) Cardiology: regular, S1S2 Gastrointestinal: hypoactive bowel sounds Neurologic: other (opens eyes to tactile stimuli; does not follow commands) Musculoskeletal: other (trace edema) - Lab 10/22/16 06:40 10/23/16 06:00 Most recent lab results Calcium 8.3 mg/dL (8.4-10.2) L 10/23/16 06:00 Phosphorus 3.10 mg/dL (2.5-4.5) 10/23/16 06:00 Magnesium 2.00 mg/dL (1.7-2.3) 10/23/16 06:00 Urine Creatinine 54.8 mg/dL (0.1-20.0) H 09/21/16 12:00 Urine Sodium 36 mEq/L 09/16/16 19:19 Urine Total Protein 16 mg/dL (5-11.8) H 09/16/16 19:19
--- NOTE | 2016-10-23 14:13 | Progress Note ---
Assessment and Plan (1) Acute respiratory failure with hypoxia Current Visit: Yes Status: Acute Plan to address problem: - continue aspiration precautions / address VAP bundles - continue to wean oxygen for MAP > 94% - continue bronchodilators and pulmonary toilet - s/p tracheostomy - continue daily PSV trials as tolerated - T-piece trials shortly (2) Acute CVA (cerebrovascular accident) Current Visit: Yes Status: Acute Plan to address problem: - out of tpA window (initially stopped due to uncontrolled HTN) - Left MCA teritory stroke with some midline shift on last CT - seen by neurology and prognosis for recovery of mental status guarded to poor - optimizing secondary prevention modalities now (BP, lipid anti-platelet therapy) - off systemic steroids now (started earlier for edema) - clinically about the same (3) Hypertensive emergency Current Visit: Yes Status: Acute Plan to address problem: - stopped all antihypertensives while septic prior - following clinically - on scheduled IV metoprolol with prn IV hydralazine (4) Obesity (BMI 35.0-39.9 without comorbidity) Current Visit: Yes Status: Chronic Plan to address problem: - nutrition consult placed for enteral formulation - on TPN now - following clinically (5) Type 2 diabetes mellitus Current Visit: Yes Status: Chronic Qualifiers: Diabetes mellitus complication status: D Diabetes mellitus complication detail: D Diabetic retinopathy severity: D Proliferative retinopathy type: P Diabetes mellitus macular edema: D 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 Laterality: L Chronic kidney disease stage: C Plan to address problem: - continue SSI - discontinued lantus re: hypoglycemia - target BG's <180 mg/dl (6) Leukocytosis (leucocytosis) Current Visit: Yes Status: Acute Qualifiers: Leukocytosis type: leukemoid reaction Qualified Code(s): D72.823 - Leukemoid reaction Plan to address problem: - completed cancidas and de-escalate per ID recs - leucocytosis persistent but now trending down - on zosyn and diflucan now - wound cultures growing pseudomonas and dann (7) Agitation Current Visit: Yes Status: Acute Plan to address problem: - prn sedation / analgesia - tapered off seroquel for now (8) Atrial fibrillation Current Visit: Yes Status: Acute Qualifiers: Atrial fibrillation type: A Plan to address problem: - failed cardioversion earlier - cardiology evaluation ongoing - back in A-fib - continue amiodarone drip (change to p.o. once tolerating enterally) - on IV metoprolol scheduled re: HTN & tachycardia (9) JUANITA (acute kidney injury) Current Visit: Yes Status: Acute Plan to address problem: - on Dialysis now - continue HD/UF per nephrology recommendations (10) Pyrexia of unknown origin Current Visit: Yes Status: Acute Plan to address problem: - dopplers negative for DVT - continue to treat with Anti-infectives (11) Severe sepsis Current Visit: Yes Status: Acute Plan to address problem: - resume vasopressors for MAP < 60mmHg not responsive to volume - all central vascular access has been discontinued after fungemia reported - care plan formulated with ID input - BC's from 09/27/16 growing in 1of 2 but still no ID yet - coomplete micafungin per ID recs and stop date - wound care nurse also managing back wounds - clinically stable and hemodynamically improved - bo to RLQ incision removed and wound drained and packed - on contact precautions per ID (12) Emesis Current Visit: Yes Status: Acute Qualifiers: Vomiting type: V Vomiting Intractability: V Nausea presence: N Plan to address problem: - s/p surgical repair of gastric perforation - continue TPN for now - follow surgery recommendations (13) Discharge planning issues Current Visit: Yes Status: Acute Plan to address problem: - she remains critically ill on life sustaining interventions including MVS and at risk for further acute deterioration including .....30' CCT ....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 Subjective Date of service: 10/23/16 Principal diagnosis: Acute resp failure on MVS; S/P Acute CVA; Acute Encephalopathy; JUANITA Interval history: Seen and examined at bedside; 24 hour events reviewed; nursing and respiratory care staff consulted; no adverse overnight events reported to me; remains on TPN ; AMS is persistent; remains on MVS; tenuously tolerating PSV trials Objective Vital Signs - 12hr 10/23/16 10/23/16 10/23/16 02:30 03:00 03:30 Temperature Pulse Rate 110 H 113 H 104 H Pulse Rate [ From Monitor] Respiratory 17 18 19 Rate Respiratory Rate [ Generalized] Blood Pressure 137/83 136/82 137/80 O2 Sat by Pulse 100 100 100 Oximetry 10/23/16 10/23/16 10/23/16 03:37 04:00 04:08 Temperature 98.4 F Pulse Rate 121 H 120 H Pulse Rate [ From Monitor] Respiratory 19 Rate Respiratory Rate [ Generalized] Blood Pressure 131/86 131/86 O2 Sat by Pulse 100 100 Oximetry 10/23/16 10/23/16 10/23/16 04:30 05:00 05:30 Temperature Pulse Rate 116 H 109 H 108 H Pulse Rate [ From Monitor] Respiratory 17 17 16 Rate Respiratory Rate [ Generalized] Blood Pressure 135/81 137/66 118/64 O2 Sat by Pulse 100 100 100 Oximetry 10/23/16 10/23/16 10/23/16 05:53 06:00 06:30 Temperature Pulse Rate 95 H 97 H 99 H Pulse Rate [ From Monitor] Respiratory 23 20 Rate Respiratory Rate [ Generalized] Blood Pressure 126/66 126/66 109/69 O2 Sat by Pulse 100 99 Oximetry 10/23/16 10/23/16 10/23/16 07:00 07:30 08:00 Temperature 99.3 F Pulse Rate 114 H 118 H 111 H Pulse Rate [ From Monitor] Respiratory 20 20 19 Rate Respiratory Rate [ Generalized] Blood Pressure 105/72 105/72 147/74 O2 Sat by Pulse 100 100 100 Oximetry 10/23/16 10/23/16 10/23/16 08:30 08:40 09:00 Temperature Pulse Rate 113 H 110 H 109 H Pulse Rate [ From Monitor] Respiratory 19 17 17 Rate Respiratory Rate [ Generalized] Blood Pressure 135/84 135/84 139/85 O2 Sat by Pulse 100 100 100 Oximetry 10/23/16 10/23/16 10/23/16 09:04 09:30 10:00 Temperature Pulse Rate 111 H 96 H 100 H Pulse Rate [ From Monitor] Respiratory 16 19 Rate Respiratory 16 Rate [ Generalized] Blood Pressure 139/85 137/81 144/87 O2 Sat by Pulse 100 100 Oximetry 10/23/16 10/23/16 10/23/16 10:30 11:00 11:30 Temperature Pulse Rate 120 H 106 H 110 H Pulse Rate [ From Monitor] Respiratory 25 H 17 15 Rate Respiratory Rate [ Generalized] Blood Pressure 144/87 173/97 175/98 O2 Sat by Pulse 100 100 100 Oximetry 10/23/16 10/23/16 10/23/16 12:00 12:08 12:27 Temperature 98.9 F Pulse Rate 110 H 113 H 115 H Pulse Rate [ 118 H From Monitor] Respiratory 16 17 Rate Respiratory Rate [ Generalized] Blood Pressure 182/98 182/98 176/96 O2 Sat by Pulse 100 100 Oximetry 10/23/16 10/23/16 10/23/16 12:30 13:00 14:07 Temperature Pulse Rate 110 H 109 H 114 H Pulse Rate [ From Monitor] Respiratory 30 H 17 Rate Respiratory Rate [ Generalized] Blood Pressure 170/89 168/84 149/86 O2 Sat by Pulse 100 100 Oximetry Constitutional: no acute distress, other (eyes open; not tracking movements) Eyes: non-icteric, other (tracheostomy tube in midline of neck) ENT: oropharynx moist Neck: supple, no lymphadenopathy Effort: mildly labored Ascultation: Bilateral: diminished breath sounds (bases), rhonchi (and referred upper airway sounds) Cardiovascular: regular rate and rhythm Gastrointestinal: hypoactive bowel sounds, soft, non-tender, non-distended, other (hema drain in place) Integumentary: other (erythema to skin of back with some healing areas; no obvious TEN's features) Extremities: no cyanosis, no edema, pulses normal, no ischemia or petechiae Neurologic: pupils equal and round, other (sedated) Psychiatric: other (unable to assess) CBC and BMP: 10/27/16 06:30 10/27/16 06:30 ABG, PT/INR, D-dimer: ABG POC ABG pH 7.561 (7.35-7.45) H 10/16/16 20:48 POC ABG pCO2 24.4 (35-45) L 10/16/16 20:48 POC ABG pO2 77 (80-105) L 10/16/16 20:48 POC ABG HCO3 21.9 10/16/16 20:48 POC ABG Total CO2 23 10/16/16 20:48 POC ABG O2 Sat 97 10/16/16 20:48 PT/INR, D-dimer PT 19.0 Sec. (12.2-14.9) H 10/09/16 03:45 INR 1.51 (0.87-1.13) H 10/09/16 03:45 Abnormal lab findings: Abnormal Labs 09/03/16 09/03/16 09/03/16 12:12 15:07 16:20 WBC RBC Hgb Hct MCV MCH MCHC RDW Plt Count Lymph % (Auto) [place] % (Auto) Lymph # [place] # Baso # Seg Neutrophils % Seg Neuts % (Manual) Lymphocytes % (Manual) Monocytes % (Manual) Eosinophils % (Manual) Basophils % (Manual) Nucleated RBC % Seg Neutrophils # Seg Neutrophils # Man Lymphocytes # (Manual) Monocytes # (Manual) Eosinophils # (Manual) PT INR Fibrinogen dRVVT Confirm Interp Factor V Activity POC ABG pH 7.452 H POC ABG pCO2 POC ABG pO2 Sodium Potassium Chloride Carbon Dioxide BUN Creatinine Glucose POC Glucose 178 H Lactic Acid Calcium Phosphorus 2.20 L Magnesium 1.60 L Direct Bilirubin ALT Alkaline Phosphatase Troponin T C-Reactive Protein Total Protein Albumin Triglycerides Cholesterol LDL Cholesterol Direct HDL Cholesterol Urine WBC (Auto) Urine Creatinine Urine Total Protein Vancomycin Trough Rheumatoid Factor Complement C4 Miscellaneous Test Crossmatch 09/03/16 09/03/16 09/03/16 17:57 17:58 23:50 WBC RBC Hgb Hct MCV MCH MCHC RDW Plt Count Lymph % (Auto) [place] % (Auto) Lymph # [place] # Baso # Seg Neutrophils % Seg Neuts % (Manual) Lymphocytes % (Manual) Monocytes % (Manual) Eosinophils % (Manual) Basophils % (Manual) Nucleated RBC % Seg Neutrophils # Seg Neutrophils # Man Lymphocytes # (Manual) Monocytes # (Manual) Eosinophils # (Manual) PT INR Fibrinogen dRVVT Confirm Interp Factor V Activity POC ABG pH POC ABG pCO2 POC ABG pO2 Sodium Potassium Chloride Carbon Dioxide BUN Creatinine Glucose POC Glucose 162 H 145 H Lactic Acid Calcium Phosphorus 2.30 L Magnesium Direct Bilirubin ALT Alkaline Phosphatase Troponin T C-Reactive Protein Total Protein Albumin Triglycerides Cholesterol LDL Cholesterol Direct HDL Cholesterol Urine WBC (Auto) Urine Creatinine Urine Total Protein Vancomycin Trough Rheumatoid Factor Complement C4 Miscellaneous Test Crossmatch 09/04/16 09/04/16 09/04/16 03:31 03:31 05:42 WBC RBC Hgb 9.7 L D Hct MCV 72 L MCH 23 L MCHC RDW 17.5 H Plt Count Lymph % (Auto) 11.1 L [place] % (Auto) Lymph # [place] # Baso # Seg Neutrophils % 84.3 H Seg Neuts % (Manual) Lymphocytes % (Manual) Monocytes % (Manual) Eosinophils % (Manual) Basophils % (Manual) Nucleated RBC % Seg Neutrophils # 8.9 H Seg Neutrophils # Man Lymphocytes # (Manual) Monocytes # (Manual) Eosinophils # (Manual) PT INR Fibrinogen dRVVT Confirm Interp Factor V Activity POC ABG pH POC ABG pCO2 POC ABG pO2 Sodium 135 L Potassium 2.9 L* Chloride 97.2 L Carbon Dioxide 19 L BUN Creatinine 1.7 H Glucose 170 H POC Glucose 152 H Lactic Acid Calcium Phosphorus Magnesium Direct Bilirubin ALT Alkaline Phosphatase Troponin T C-Reactive Protein Total Protein Albumin Triglycerides 160 H Cholesterol LDL Cholesterol Direct HDL Cholesterol 31 L Urine WBC (Auto) Urine Creatinine Urine Total Protein Vancomycin Trough Rheumatoid Factor Complement C4 Miscellaneous Test Crossmatch 09/04/16 09/04/16 09/04/16 11:34 17:46 23:29 WBC RBC Hgb Hct MCV MCH MCHC RDW Plt Count Lymph % (Auto) [place] % (Auto) Lymph # [place] # Baso # Seg Neutrophils % Seg Neuts % (Manual) Lymphocytes % (Manual) Monocytes % (Manual) Eosinophils % (Manual) Basophils % (Manual) Nucleated RBC % Seg Neutrophils # Seg Neutrophils # Man Lymphocytes # (Manual) Monocytes # (Manual) Eosinophils # (Manual) PT INR Fibrinogen dRVVT Confirm Interp Factor V Activity POC ABG pH POC ABG pCO2 POC ABG pO2 Sodium Potassium Chloride Carbon Dioxide BUN Creatinine Glucose POC Glucose 165 H 210 H 139 H Lactic Acid Calcium Phosphorus Magnesium Direct Bilirubin ALT Alkaline Phosphatase Troponin T C-Reactive Protein Total Protein Albumin Triglycerides Cholesterol LDL Cholesterol Direct HDL Cholesterol Urine WBC (Auto) Urine Creatinine Urine Total Protein Vancomycin Trough Rheumatoid Factor Complement C4 Miscellaneous Test Crossmatch 09/05/16 09/05/16 09/05/16 04:05 04:05 05:38 WBC RBC Hgb Hct MCV 76 L D MCH 23 L MCHC RDW 17.8 H Plt Count Lymph % (Auto) [place] % (Auto) Lymph # [place] # Baso # Seg Neutrophils % Seg Neuts % (Manual) Lymphocytes % (Manual) Monocytes % (Manual) Eosinophils % (Manual) Basophils % (Manual) Nucleated RBC % Seg Neutrophils # Seg Neutrophils # Man Lymphocytes # (Manual) Monocytes # (Manual) Eosinophils # (Manual) PT INR Fibrinogen dRVVT Confirm Interp Factor V Activity POC ABG pH POC ABG pCO2 POC ABG pO2 Sodium 134 L Potassium Chloride Carbon Dioxide 18 L BUN Creatinine 1.8 H Glucose 192 H POC Glucose 175 H Lactic Acid Calcium Phosphorus Magnesium Direct Bilirubin ALT Alkaline Phosphatase Troponin T C-Reactive Protein Total Protein Albumin Triglycerides Cholesterol LDL Cholesterol Direct HDL Cholesterol Urine WBC (Auto) Urine Creatinine Urine Total Protein Vancomycin Trough Rheumatoid Factor Complement C4 Miscellaneous Test Crossmatch 09/05/16 09/05/16 09/05/16 11:38 17:48 23:22 WBC RBC Hgb Hct MCV MCH MCHC RDW Plt Count Lymph % (Auto) [place] % (Auto) Lymph # [place] # Baso # Seg Neutrophils % Seg Neuts % (Manual) Lymphocytes % (Manual) Monocytes % (Manual) Eosinophils % (Manual) Basophils % (Manual) Nucleated RBC % Seg Neutrophils # Seg Neutrophils # Man Lymphocytes # (Manual) Monocytes # (Manual) Eosinophils # (Manual) PT INR Fibrinogen dRVVT Confirm Interp Factor V Activity POC ABG pH POC ABG pCO2 POC ABG pO2 Sodium Potassium Chloride Carbon Dioxide BUN Creatinine Glucose POC Glucose 164 H 186 H 195 H Lactic Acid Calcium Phosphorus Magnesium Direct Bilirubin ALT Alkaline Phosphatase Troponin T C-Reactive Protein Total Protein Albumin Triglycerides Cholesterol LDL Cholesterol Direct HDL Cholesterol Urine WBC (Auto) Urine Creatinine Urine Total Protein Vancomycin Trough Rheumatoid Factor Complement C4 Miscellaneous Test Crossmatch 09/06/16 09/06/16 09/06/16 04:12 05:59 07:32 WBC RBC Hgb Hct MCV MCH MCHC RDW Plt Count Lymph % (Auto) [place] % (Auto) Lymph # [place] # Baso # Seg Neutrophils % Seg Neuts % (Manual) Lymphocytes % (Manual) Monocytes % (Manual) Eosinophils % (Manual) Basophils % (Manual) Nucleated RBC % Seg Neutrophils # Seg Neutrophils # Man Lymphocytes # (Manual) Monocytes # (Manual) Eosinophils # (Manual) PT INR Fibrinogen dRVVT Confirm Interp Factor V Activity POC ABG pH 7.514 H POC ABG pCO2 29.1 L POC ABG pO2 72 L Sodium 133 L Potassium 3.4 L Chloride 94.9 L Carbon Dioxide 19 L BUN 30 H Creatinine 2.1 H Glucose 139 H POC Glucose 146 H Lactic Acid Calcium Phosphorus Magnesium Direct Bilirubin ALT Alkaline Phosphatase Troponin T C-Reactive Protein Total Protein Albumin Triglycerides Cholesterol LDL Cholesterol Direct HDL Cholesterol Urine WBC (Auto) Urine Creatinine Urine Total Protein Vancomycin Trough Rheumatoid Factor Complement C4 Miscellaneous Test Crossmatch 09/06/16 09/06/16 09/06/16 11:57 17:58 19:02 WBC RBC Hgb Hct MCV MCH MCHC RDW Plt Count Lymph % (Auto) [place] % (Auto) Lymph # [place] # Baso # Seg Neutrophils % Seg Neuts % (Manual) Lymphocytes % (Manual) Monocytes % (Manual) Eosinophils % (Manual) Basophils % (Manual) Nucleated RBC % Seg Neutrophils # Seg Neutrophils # Man Lymphocytes # (Manual) Monocytes # (Manual) Eosinophils # (Manual) PT INR Fibrinogen dRVVT Confirm Interp Factor V Activity POC ABG pH 7.465 H POC ABG pCO2 32.0 L POC ABG pO2 Sodium Potassium Chloride Carbon Dioxide BUN Creatinine Glucose POC Glucose 165 H 160 H Lactic Acid Calcium Phosphorus Magnesium Direct Bilirubin ALT Alkaline Phosphatase Troponin T C-Reactive Protein Total Protein Albumin Triglycerides Cholesterol LDL Cholesterol Direct HDL Cholesterol Urine WBC (Auto) Urine Creatinine Urine Total Protein Vancomycin Trough Rheumatoid Factor Complement C4 Miscellaneous Test Crossmatch 09/06/16 09/07/16 09/07/16 23:45 02:47 02:47 WBC RBC Hgb Hct MCV MCH MCHC RDW Plt Count Lymph % (Auto) [place] % (Auto) Lymph # [place] # Baso # Seg Neutrophils % Seg Neuts % (Manual) Lymphocytes % (Manual) Monocytes % (Manual) Eosinophils % (Manual) Basophils % (Manual) Nucleated RBC % Seg Neutrophils # Seg Neutrophils # Man Lymphocytes # (Manual) Monocytes # (Manual) Eosinophils # (Manual) PT INR Fibrinogen dRVVT Confirm Interp Factor V Activity POC ABG pH POC ABG pCO2 POC ABG pO2 Sodium Potassium Chloride Carbon Dioxide BUN Creatinine Glucose POC Glucose 204 H Lactic Acid Calcium Phosphorus Magnesium Direct Bilirubin ALT Alkaline Phosphatase Troponin T C-Reactive Protein Total Protein Albumin Triglycerides Cholesterol LDL Cholesterol Direct HDL Cholesterol Urine WBC (Auto) 68.0 H Urine Creatinine 106.1 H Urine Total Protein Vancomycin Trough Rheumatoid Factor Complement C4 Miscellaneous Test Crossmatch 09/07/16 09/07/16 09/07/16 04:50 06:19 06:39 WBC RBC Hgb Hct MCV MCH MCHC RDW Plt Count Lymph % (Auto) [place] % (Auto) Lymph # [place] # Baso # Seg Neutrophils % Seg Neuts % (Manual) Lymphocytes % (Manual) Monocytes % (Manual) Eosinophils % (Manual) Basophils % (Manual) Nucleated RBC % Seg Neutrophils # Seg Neutrophils # Man Lymphocytes # (Manual) Monocytes # (Manual) Eosinophils # (Manual) PT INR Fibrinogen dRVVT Confirm Interp Factor V Activity POC ABG pH 7.457 H POC ABG pCO2 32.1 L POC ABG pO2 76 L Sodium 132 L Potassium Chloride 94.7 L Carbon Dioxide BUN 53 H Creatinine 2.9 H Glucose 151 H POC Glucose 149 H Lactic Acid Calcium Phosphorus Magnesium Direct Bilirubin ALT Alkaline Phosphatase Troponin T C-Reactive Protein Total Protein Albumin Triglycerides Cholesterol LDL Cholesterol Direct HDL Cholesterol Urine WBC (Auto) Urine Creatinine Urine Total Protein Vancomycin Trough Rheumatoid Factor Complement C4 Miscellaneous Test Crossmatch 09/07/16 09/07/16 09/07/16 09:20 11:43 11:43 WBC 19.4 H RBC Hgb 8.3 L Hct 26.4 L D MCV 72 L D MCH 22 L MCHC RDW 17.9 H Plt Count Lymph % (Auto) 8.5 L [place] % (Auto) Lymph # [place] # 1.0 H Baso # Seg Neutrophils % 85.8 H Seg Neuts % (Manual) Lymphocytes % (Manual) Monocytes % (Manual) Eosinophils % (Manual) Basophils % (Manual) Nucleated RBC % Seg Neutrophils # 16.6 H Seg Neutrophils # Man Lymphocytes # (Manual) Monocytes # (Manual) Eosinophils # (Manual) PT INR Fibrinogen dRVVT Confirm Interp Factor V Activity POC ABG pH POC ABG pCO2 POC ABG pO2 Sodium 134 L Potassium Chloride 97.2 L Carbon Dioxide 20 L BUN 58 H Creatinine 2.9 H Glucose 147 H POC Glucose Lactic Acid Calcium Phosphorus 2.40 L Magnesium 2.40 H Direct Bilirubin ALT Alkaline Phosphatase Troponin T C-Reactive Protein Total Protein 5.8 L Albumin 2.2 L Triglycerides Cholesterol LDL Cholesterol Direct HDL Cholesterol Urine WBC (Auto) Urine Creatinine Urine Total Protein Vancomycin Trough Rheumatoid Factor Complement C4 58 H Miscellaneous Test Crossmatch 09/07/16 09/07/16 09/07/16 11:50 16:00 17:31 WBC RBC Hgb Hct MCV MCH MCHC RDW Plt Count Lymph % (Auto) [place] % (Auto) Lymph # [place] # Baso # Seg Neutrophils % Seg Neuts % (Manual) Lymphocytes % (Manual) Monocytes % (Manual) Eosinophils % (Manual) Basophils % (Manual) Nucleated RBC % Seg Neutrophils # Seg Neutrophils # Man Lymphocytes # (Manual) Monocytes # (Manual) Eosinophils # (Manual) PT INR Fibrinogen dRVVT Confirm Interp Factor V Activity POC ABG pH POC ABG pCO2 POC ABG pO2 158 H Sodium Potassium Chloride Carbon Dioxide BUN Creatinine Glucose POC Glucose 175 H Lactic Acid Calcium Phosphorus Magnesium Direct Bilirubin ALT Alkaline Phosphatase Troponin T C-Reactive Protein Total Protein Albumin Triglycerides Cholesterol LDL Cholesterol Direct HDL Cholesterol Urine WBC (Auto) Urine Creatinine 66.3 H Urine Total Protein Vancomycin Trough Rheumatoid Factor Complement C4 Miscellaneous Test Crossmatch 09/07/16 09/08/16 09/08/16 23:50 05:46 06:18 WBC 17.8 H RBC 3.58 L Hgb 8.1 L Hct 25.5 L MCV 71 L MCH 23 L MCHC RDW 18.4 H Plt Count Lymph % (Auto) [place] % (Auto) Lymph # [place] # Baso # Seg Neutrophils % Seg Neuts % (Manual) 92.0 H Lymphocytes % (Manual) 6.0 L Monocytes % (Manual) Eosinophils % (Manual) Basophils % (Manual) Nucleated RBC % Seg Neutrophils # Seg Neutrophils # Man 16.4 H Lymphocytes # (Manual) 1.1 L Monocytes # (Manual) Eosinophils # (Manual) PT INR Fibrinogen dRVVT Confirm Interp Factor V Activity POC ABG pH POC ABG pCO2 34.3 L POC ABG pO2 71 L Sodium Potassium Chloride Carbon Dioxide BUN Creatinine Glucose POC Glucose 216 H Lactic Acid Calcium Phosphorus Magnesium Direct Bilirubin ALT Alkaline Phosphatase Troponin T C-Reactive Protein Total Protein Albumin Triglycerides Cholesterol LDL Cholesterol Direct HDL Cholesterol Urine WBC (Auto) Urine Creatinine Urine Total Protein Vancomycin Trough Rheumatoid Factor Complement C4 Miscellaneous Test Crossmatch 09/08/16 09/08/16 09/08/16 06:18 06:51 10:55 WBC RBC Hgb Hct MCV MCH MCHC RDW Plt Count Lymph % (Auto) [place] % (Auto) Lymph # [place] # Baso # Seg Neutrophils % Seg Neuts % (Manual) Lymphocytes % (Manual) Monocytes % (Manual) Eosinophils % (Manual) Basophils % (Manual) Nucleated RBC % Seg Neutrophils # Seg Neutrophils # Man Lymphocytes # (Manual) Monocytes # (Manual) Eosinophils # (Manual) PT INR Fibrinogen dRVVT Confirm Interp Factor V Activity POC ABG pH POC ABG pCO2 POC ABG pO2 Sodium 133 L Potassium Chloride 96.9 L Carbon Dioxide 20 L BUN 63 H Creatinine 2.7 H Glucose 195 H POC Glucose 204 H 169 H Lactic Acid Calcium Phosphorus Magnesium Direct Bilirubin ALT Alkaline Phosphatase Troponin T C-Reactive Protein Total Protein Albumin Triglycerides Cholesterol LDL Cholesterol Direct HDL Cholesterol Urine WBC (Auto) Urine Creatinine Urine Total Protein Vancomycin Trough Rheumatoid Factor Complement C4 Miscellaneous Test Crossmatch 09/08/16 09/08/16 09/08/16 11:48 11:48 11:48 WBC RBC Hgb Hct MCV MCH MCHC RDW Plt Count Lymph % (Auto) [place] % (Auto) Lymph # [place] # Baso # Seg Neutrophils % Seg Neuts % (Manual) Lymphocytes % (Manual) Monocytes % (Manual) Eosinophils % (Manual) Basophils % (Manual) Nucleated RBC % Seg Neutrophils # Seg Neutrophils # Man Lymphocytes # (Manual) Monocytes # (Manual) Eosinophils # (Manual) PT INR Fibrinogen 750 H dRVVT Confirm Interp Factor V Activity POC ABG pH POC ABG pCO2 POC ABG pO2 Sodium Potassium Chloride Carbon Dioxide BUN Creatinine Glucose POC Glucose Lactic Acid Calcium Phosphorus Magnesium Direct Bilirubin ALT Alkaline Phosphatase Troponin T C-Reactive Protein 15.70 H Total Protein Albumin Triglycerides Cholesterol LDL Cholesterol Direct HDL Cholesterol Urine WBC (Auto) Urine Creatinine Urine Total Protein Vancomycin Trough Rheumatoid Factor 24 H Complement C4 Miscellaneous Test Crossmatch 09/08/16 09/08/16 09/09/16 15:35 18:25 00:24 WBC RBC Hgb Hct MCV MCH MCHC RDW Plt Count Lymph % (Auto) [place] % (Auto) Lymph # [place] # Baso # Seg Neutrophils % Seg Neuts % (Manual) Lymphocytes % (Manual) Monocytes % (Manual) Eosinophils % (Manual) Basophils % (Manual) Nucleated RBC % Seg Neutrophils # Seg Neutrophils # Man Lymphocytes # (Manual) Monocytes # (Manual) Eosinophils # (Manual) PT INR Fibrinogen dRVVT Confirm Interp Factor V Activity 182 H POC ABG pH POC ABG pCO2 POC ABG pO2 Sodium Potassium Chloride Carbon Dioxide BUN Creatinine Glucose POC Glucose 184 H 216 H Lactic Acid Calcium Phosphorus Magnesium Direct Bilirubin ALT Alkaline Phosphatase Troponin T C-Reactive Protein Total Protein Albumin Triglycerides Cholesterol LDL Cholesterol Direct HDL Cholesterol Urine WBC (Auto) Urine Creatinine Urine Total Protein Vancomycin Trough Rheumatoid Factor Complement C4 Miscellaneous Test Crossmatch 09/09/16 09/09/16 09/09/16 03:00 03:00 04:04 WBC 27.9 H RBC Hgb 8.7 L Hct 28.1 L MCV 72 L MCH 22 L MCHC RDW 18.4 H Plt Count 485 H Lymph % (Auto) [place] % (Auto) Lymph # [place] # Baso # Seg Neutrophils % Seg Neuts % (Manual) 77.0 H Lymphocytes % (Manual) 9.0 L Monocytes % (Manual) Eosinophils % (Manual) Basophils % (Manual) Nucleated RBC % Seg Neutrophils # Seg Neutrophils # Man 21.5 H Lymphocytes # (Manual) Monocytes # (Manual) 2.0 H Eosinophils # (Manual) PT INR Fibrinogen dRVVT Confirm Interp Factor V Activity POC ABG pH POC ABG pCO2 POC ABG pO2 121 H Sodium 135 L Potassium Chloride 96.3 L Carbon Dioxide 21 L BUN 83 H Creatinine 3.0 H Glucose 135 H POC Glucose Lactic Acid Calcium Phosphorus Magnesium Direct Bilirubin ALT Alkaline Phosphatase Troponin T C-Reactive Protein Total Protein Albumin Triglycerides Cholesterol LDL Cholesterol Direct HDL Cholesterol Urine WBC (Auto) Urine Creatinine Urine Total Protein Vancomycin Trough Rheumatoid Factor Complement C4 Miscellaneous Test Crossmatch 09/09/16 09/09/16 09/09/16 05:41 11:55 14:13 WBC RBC Hgb Hct MCV MCH MCHC RDW Plt Count Lymph % (Auto) [place] % (Auto) Lymph # [place] # Baso # Seg Neutrophils % Seg Neuts % (Manual) Lymphocytes % (Manual) Monocytes % (Manual) Eosinophils % (Manual) Basophils % (Manual) Nucleated RBC % Seg Neutrophils # Seg Neutrophils # Man Lymphocytes # (Manual) Monocytes # (Manual) Eosinophils # (Manual) PT INR Fibrinogen dRVVT Confirm Interp Factor V Activity POC ABG pH POC ABG pCO2 POC ABG pO2 Sodium Potassium Chloride Carbon Dioxide BUN Creatinine Glucose POC Glucose 155 H 186 H Lactic Acid Calcium Phosphorus Magnesium Direct Bilirubin ALT Alkaline Phosphatase Troponin T C-Reactive Protein Total Protein Albumin Triglycerides Cholesterol LDL Cholesterol Direct HDL Cholesterol Urine WBC (Auto) 25.0 H Urine Creatinine Urine Total Protein Vancomycin Trough Rheumatoid Factor Complement C4 Miscellaneous Test Crossmatch 09/09/16 09/09/16 09/10/16 17:33 23:13 05:09 WBC RBC Hgb Hct MCV MCH MCHC RDW Plt Count Lymph % (Auto) [place] % (Auto) Lymph # [place] # Baso # Seg Neutrophils % Seg Neuts % (Manual) Lymphocytes % (Manual) Monocytes % (Manual) Eosinophils % (Manual) Basophils % (Manual) Nucleated RBC % Seg Neutrophils # Seg Neutrophils # Man Lymphocytes # (Manual) Monocytes # (Manual) Eosinophils # (Manual) PT INR Fibrinogen dRVVT Confirm Interp Factor V Activity POC ABG pH POC ABG pCO2 POC ABG pO2 74 L Sodium Potassium Chloride Carbon Dioxide BUN Creatinine Glucose POC Glucose 211 H 215 H Lactic Acid Calcium Phosphorus Magnesium Direct Bilirubin ALT Alkaline Phosphatase Troponin T C-Reactive Protein Total Protein Albumin Triglycerides Cholesterol LDL Cholesterol Direct HDL Cholesterol Urine WBC (Auto) Urine Creatinine Urine Total Protein Vancomycin Trough Rheumatoid Factor Complement C4 Miscellaneous Test Crossmatch 09/10/16 09/10/16 09/10/16 05:17 05:17 11:31 WBC 15.8 H RBC 3.25 L Hgb 7.3 L Hct 22.9 L MCV 71 L MCH 23 L MCHC RDW 18.4 H Plt Count Lymph % (Auto) [place] % (Auto) Lymph # [place] # Baso # Seg Neutrophils % Seg Neuts % (Manual) 91.0 H Lymphocytes % (Manual) 4.0 L Monocytes % (Manual) Eosinophils % (Manual) Basophils % (Manual) Nucleated RBC % Seg Neutrophils # Seg Neutrophils # Man 14.4 H Lymphocytes # (Manual) 0.6 L Monocytes # (Manual) Eosinophils # (Manual) PT INR Fibrinogen dRVVT Confirm Interp Factor V Activity POC ABG pH POC ABG pCO2 POC ABG pO2 Sodium Potassium Chloride Carbon Dioxide 21 L BUN 93 H Creatinine 2.9 H Glucose 146 H POC Glucose 188 H Lactic Acid Calcium 8.1 L Phosphorus Magnesium Direct Bilirubin ALT Alkaline Phosphatase Troponin T C-Reactive Protein Total Protein Albumin Triglycerides Cholesterol LDL Cholesterol Direct HDL Cholesterol Urine WBC (Auto) Urine Creatinine Urine Total Protein Vancomycin Trough Rheumatoid Factor Complement C4 Miscellaneous Test Crossmatch 09/10/16 09/10/16 09/10/16 13:17 17:20 23:32 WBC RBC Hgb Hct MCV MCH MCHC RDW Plt Count Lymph % (Auto) [place] % (Auto) Lymph # [place] # Baso # Seg Neutrophils % Seg Neuts % (Manual) Lymphocytes % (Manual) Monocytes % (Manual) Eosinophils % (Manual) Basophils % (Manual) Nucleated RBC % Seg Neutrophils # Seg Neutrophils # Man Lymphocytes # (Manual) Monocytes # (Manual) Eosinophils # (Manual) PT INR Fibrinogen dRVVT Confirm Interp Factor V Activity POC ABG pH POC ABG pCO2 POC ABG pO2 Sodium Potassium Chloride Carbon Dioxide BUN Creatinine Glucose POC Glucose 199 H 186 H Lactic Acid Calcium Phosphorus Magnesium Direct Bilirubin ALT Alkaline Phosphatase Troponin T C-Reactive Protein Total Protein Albumin Triglycerides Cholesterol LDL Cholesterol Direct HDL Cholesterol Urine WBC (Auto) Urine Creatinine Urine Total Protein Vancomycin Trough Rheumatoid Factor Complement C4 Miscellaneous Test Crossmatch See Detail 09/11/16 09/11/16 09/11/16 05:10 05:10 05:17 WBC 28.4 H RBC Hgb 9.2 L Hct 29.3 L D MCV 73 L MCH 23 L MCHC RDW 18.9 H Plt Count 452 H Lymph % (Auto) [place] % (Auto) Lymph # [place] # Baso # Seg Neutrophils % Seg Neuts % (Manual) 89.5 H Lymphocytes % (Manual) 2.0 L Monocytes % (Manual) Eosinophils % (Manual) Basophils % (Manual) Nucleated RBC % Seg Neutrophils # Seg Neutrophils # Man 25.4 H Lymphocytes # (Manual) 0.6 L Monocytes # (Manual) 1.3 H Eosinophils # (Manual) PT INR Fibrinogen dRVVT Confirm Interp Factor V Activity POC ABG pH POC ABG pCO2 POC ABG pO2 Sodium 136 L Potassium Chloride Carbon Dioxide 18 L BUN 107 H Creatinine 2.6 H Glucose 187 H POC Glucose 230 H Lactic Acid Calcium 8.3 L Phosphorus Magnesium Direct Bilirubin ALT Alkaline Phosphatase Troponin T C-Reactive Protein Total Protein Albumin Triglycerides Cholesterol LDL Cholesterol Direct HDL Cholesterol Urine WBC (Auto) Urine Creatinine Urine Total Protein Vancomycin Trough Rheumatoid Factor Complement C4 Miscellaneous Test Crossmatch 09/11/16 09/11/16 09/11/16 05:55 12:02 17:32 WBC RBC Hgb Hct MCV MCH MCHC RDW Plt Count Lymph % (Auto) [place] % (Auto) Lymph # [place] # Baso # Seg Neutrophils % Seg Neuts % (Manual) Lymphocytes % (Manual) Monocytes % (Manual) Eosinophils % (Manual) Basophils % (Manual) Nucleated RBC % Seg Neutrophils # Seg Neutrophils # Man Lymphocytes # (Manual) Monocytes # (Manual) Eosinophils # (Manual) PT INR Fibrinogen dRVVT Confirm Interp Factor V Activity POC ABG pH POC ABG pCO2 33.8 L POC ABG pO2 Sodium Potassium Chloride Carbon Dioxide BUN Creatinine Glucose POC Glucose 191 H 239 H Lactic Acid Calcium Phosphorus Magnesium Direct Bilirubin ALT Alkaline Phosphatase Troponin T C-Reactive Protein Total Protein Albumin Triglycerides Cholesterol LDL Cholesterol Direct HDL Cholesterol Urine WBC (Auto) Urine Creatinine Urine Total Protein Vancomycin Trough Rheumatoid Factor Complement C4 Miscellaneous Test Crossmatch 09/11/16 09/12/16 09/12/16 23:52 05:09 05:32 WBC RBC Hgb Hct MCV MCH MCHC RDW Plt Count Lymph % (Auto) [place] % (Auto) Lymph # [place] # Baso # Seg Neutrophils % Seg Neuts % (Manual) Lymphocytes % (Manual) Monocytes % (Manual) Eosinophils % (Manual) Basophils % (Manual) Nucleated RBC % Seg Neutrophils # Seg Neutrophils # Man Lymphocytes # (Manual) Monocytes # (Manual) Eosinophils # (Manual) PT INR Fibrinogen dRVVT Confirm Interp Factor V Activity POC ABG pH POC ABG pCO2 34.6 L POC ABG pO2 Sodium Potassium Chloride Carbon Dioxide BUN Creatinine Glucose POC Glucose 265 H 184 H Lactic Acid Calcium Phosphorus Magnesium Direct Bilirubin ALT Alkaline Phosphatase Troponin T C-Reactive Protein Total Protein Albumin Triglycerides Cholesterol LDL Cholesterol Direct HDL Cholesterol Urine WBC (Auto) Urine Creatinine Urine Total Protein Vancomycin Trough Rheumatoid Factor Complement C4 Miscellaneous Test Crossmatch 09/12/16 09/12/16 09/12/16 06:45 06:45 07:22 WBC 31.7 H RBC 3.54 L Hgb 8.3 L Hct 25.9 L MCV 73 L MCH 23 L MCHC RDW 18.9 H Plt Count Lymph % (Auto) [place] % (Auto) Lymph # [place] # Baso # Seg Neutrophils % Seg Neuts % (Manual) 88.5 H Lymphocytes % (Manual) 4.5 L Monocytes % (Manual) Eosinophils % (Manual) Basophils % (Manual) Nucleated RBC % Seg Neutrophils # Seg Neutrophils # Man 28.1 H Lymphocytes # (Manual) Monocytes # (Manual) 1.0 H Eosinophils # (Manual) PT INR Fibrinogen dRVVT Confirm Interp Factor V Activity POC ABG pH POC ABG pCO2 POC ABG pO2 Sodium Potassium Chloride Carbon Dioxide 20 L BUN 115 H Creatinine 2.7 H Glucose 165 H POC Glucose Lactic Acid Calcium 8.0 L Phosphorus Magnesium Direct Bilirubin ALT Alkaline Phosphatase Troponin T C-Reactive Protein Total Protein Albumin Triglycerides 217 H Cholesterol LDL Cholesterol Direct HDL Cholesterol Urine WBC (Auto) Urine Creatinine Urine Total Protein Vancomycin Trough Rheumatoid Factor Complement C4 Miscellaneous Test Crossmatch 09/12/16 09/12/16 09/12/16 07:22 09:59 12:21 WBC RBC Hgb Hct MCV MCH MCHC RDW Plt Count Lymph % (Auto) [place] % (Auto) Lymph # [place] # Baso # Seg Neutrophils % Seg Neuts % (Manual) Lymphocytes % (Manual) Monocytes % (Manual) Eosinophils % (Manual) Basophils % (Manual) Nucleated RBC % Seg Neutrophils # Seg Neutrophils # Man Lymphocytes # (Manual) Monocytes # (Manual) Eosinophils # (Manual) PT INR Fibrinogen dRVVT Confirm Interp Positive H Factor V Activity POC ABG pH POC ABG pCO2 POC ABG pO2 Sodium Potassium Chloride Carbon Dioxide BUN Creatinine Glucose POC Glucose 224 H Lactic Acid Calcium Phosphorus Magnesium Direct Bilirubin ALT Alkaline Phosphatase Troponin T C-Reactive Protein 1.70 H Total Protein Albumin Triglycerides Cholesterol LDL Cholesterol Direct HDL Cholesterol Urine WBC (Auto) Urine Creatinine Urine Total Protein Vancomycin Trough Rheumatoid Factor Complement C4 Miscellaneous Test Crossmatch 09/12/16 09/12/16 09/13/16 16:51 23:28 04:00 WBC 45.0 H* RBC Hgb 9.4 L Hct MCV 75 L MCH 23 L MCHC RDW 19.0 H Plt Count 470 H Lymph % (Auto) [place] % (Auto) Lymph # [place] # Baso # Seg Neutrophils % Seg Neuts % (Manual) 89.0 H Lymphocytes % (Manual) 5.0 L Monocytes % (Manual) Eosinophils % (Manual) Basophils % (Manual) Nucleated RBC % Seg Neutrophils # Seg Neutrophils # Man 40.1 H Lymphocytes # (Manual) Monocytes # (Manual) Eosinophils # (Manual) PT INR Fibrinogen dRVVT Confirm Interp Factor V Activity POC ABG pH POC ABG pCO2 POC ABG pO2 Sodium Potassium Chloride Carbon Dioxide BUN Creatinine Glucose POC Glucose 169 H 150 H Lactic Acid Calcium Phosphorus Magnesium Direct Bilirubin ALT Alkaline Phosphatase Troponin T C-Reactive Protein Total Protein Albumin Triglycerides Cholesterol LDL Cholesterol Direct HDL Cholesterol Urine WBC (Auto) Urine Creatinine Urine Total Protein Vancomycin Trough Rheumatoid Factor Complement C4 Miscellaneous Test Crossmatch 09/13/16 09/13/16 09/13/16 04:00 11:26 17:31 WBC RBC Hgb Hct MCV MCH MCHC RDW Plt Count Lymph % (Auto) [place] % (Auto) Lymph # [place] # Baso # Seg Neutrophils % Seg Neuts % (Manual) Lymphocytes % (Manual) Monocytes % (Manual) Eosinophils % (Manual) Basophils % (Manual) Nucleated RBC % Seg Neutrophils # Seg Neutrophils # Man Lymphocytes # (Manual) Monocytes # (Manual) Eosinophils # (Manual) PT INR Fibrinogen dRVVT Confirm Interp Factor V Activity POC ABG pH POC ABG pCO2 POC ABG pO2 Sodium Potassium Chloride Carbon Dioxide 20 L BUN 116 H Creatinine 3.0 H Glucose 172 H POC Glucose 140 H 183 H Lactic Acid Calcium Phosphorus Magnesium Direct Bilirubin ALT Alkaline Phosphatase Troponin T C-Reactive Protein Total Protein 6.2 L Albumin 2.9 L Triglycerides Cholesterol LDL Cholesterol Direct HDL Cholesterol Urine WBC (Auto) Urine Creatinine Urine Total Protein Vancomycin Trough Rheumatoid Factor Complement C4 Miscellaneous Test Crossmatch 09/13/16 09/14/16 09/14/16 23:23 04:06 04:07 WBC 29.4 H RBC Hgb 8.9 L Hct 27.3 L MCV 75 L MCH 24 L MCHC RDW 19.1 H Plt Count Lymph % (Auto) [place] % (Auto) Lymph # [place] # Baso # Seg Neutrophils % Seg Neuts % (Manual) 84.0 H Lymphocytes % (Manual) 6.0 L Monocytes % (Manual) 9.0 H Eosinophils % (Manual) Basophils % (Manual) Nucleated RBC % Seg Neutrophils # Seg Neutrophils # Man 24.7 H Lymphocytes # (Manual) Monocytes # (Manual) 2.6 H Eosinophils # (Manual) PT INR Fibrinogen dRVVT Confirm Interp Factor V Activity POC ABG pH 7.342 L POC ABG pCO2 POC ABG pO2 116 H Sodium Potassium Chloride Carbon Dioxide BUN Creatinine Glucose POC Glucose 154 H Lactic Acid Calcium Phosphorus Magnesium Direct Bilirubin ALT Alkaline Phosphatase Troponin T C-Reactive Protein Total Protein Albumin Triglycerides Cholesterol LDL Cholesterol Direct HDL Cholesterol Urine WBC (Auto) Urine Creatinine Urine Total Protein Vancomycin Trough Rheumatoid Factor Complement C4 Miscellaneous Test Crossmatch 09/14/16 09/14/16 09/14/16 04:07 05:29 12:19 WBC RBC Hgb Hct MCV MCH MCHC RDW Plt Count Lymph % (Auto) [place] % (Auto) Lymph # [place] # Baso # Seg Neutrophils % Seg Neuts % (Manual) Lymphocytes % (Manual) Monocytes % (Manual) Eosinophils % (Manual) Basophils % (Manual) Nucleated RBC % Seg Neutrophils # Seg Neutrophils # Man Lymphocytes # (Manual) Monocytes # (Manual) Eosinophils # (Manual) PT INR Fibrinogen dRVVT Confirm Interp Factor V Activity POC ABG pH POC ABG pCO2 POC ABG pO2 Sodium 136 L Potassium Chloride Carbon Dioxide 18 L BUN 121 H Creatinine 2.8 H Glucose 214 H POC Glucose 239 H 181 H Lactic Acid Calcium Phosphorus Magnesium Direct Bilirubin ALT Alkaline Phosphatase Troponin T C-Reactive Protein Total Protein Albumin Triglycerides Cholesterol LDL Cholesterol Direct HDL Cholesterol Urine WBC (Auto) Urine Creatinine Urine Total Protein Vancomycin Trough Rheumatoid Factor Complement C4 Miscellaneous Test Crossmatch 09/14/16 09/14/16 09/15/16 18:12 23:37 05:00 WBC 26.1 H RBC 3.05 L Hgb 7.2 L Hct 22.9 L MCV 75 L MCH 24 L MCHC RDW 19.0 H Plt Count Lymph % (Auto) [place] % (Auto) Lymph # [place] # Baso # Seg Neutrophils % Seg Neuts % (Manual) Lymphocytes % (Manual) Monocytes % (Manual) Eosinophils % (Manual) Basophils % (Manual) Nucleated RBC % Seg Neutrophils # Seg Neutrophils # Man Lymphocytes # (Manual) Monocytes # (Manual) Eosinophils # (Manual) PT INR Fibrinogen dRVVT Confirm Interp Factor V Activity POC ABG pH POC ABG pCO2 POC ABG pO2 Sodium Potassium Chloride Carbon Dioxide BUN Creatinine Glucose POC Glucose 266 H 154 H Lactic Acid Calcium Phosphorus Magnesium Direct Bilirubin ALT Alkaline Phosphatase Troponin T C-Reactive Protein Total Protein Albumin Triglycerides Cholesterol LDL Cholesterol Direct HDL Cholesterol Urine WBC (Auto) Urine Creatinine Urine Total Protein Vancomycin Trough Rheumatoid Factor Complement C4 Miscellaneous Test Crossmatch 09/15/16 09/15/16 09/15/16 05:00 05:17 12:45 WBC RBC Hgb Hct MCV MCH MCHC RDW Plt Count Lymph % (Auto) [place] % (Auto) Lymph # [place] # Baso # Seg Neutrophils % Seg Neuts % (Manual) Lymphocytes % (Manual) Monocytes % (Manual) Eosinophils % (Manual) Basophils % (Manual) Nucleated RBC % Seg Neutrophils # Seg Neutrophils # Man Lymphocytes # (Manual) Monocytes # (Manual) Eosinophils # (Manual) PT INR Fibrinogen dRVVT Confirm Interp Factor V Activity POC ABG pH POC ABG pCO2 POC ABG pO2 Sodium Potassium 5.2 H Chloride Carbon Dioxide 18 L BUN 139 H Creatinine 3.7 H Glucose 227 H POC Glucose 226 H 244 H Lactic Acid Calcium 8.3 L Phosphorus Magnesium Direct Bilirubin ALT Alkaline Phosphatase Troponin T C-Reactive Protein Total Protein Albumin Triglycerides Cholesterol LDL Cholesterol Direct HDL Cholesterol Urine WBC (Auto) Urine Creatinine Urine Total Protein Vancomycin Trough Rheumatoid Factor Complement C4 Miscellaneous Test Crossmatch 09/15/16 09/15/16 09/15/16 14:32 17:33 23:35 WBC RBC Hgb Hct MCV MCH MCHC RDW Plt Count Lymph % (Auto) [place] % (Auto) Lymph # [place] # Baso # Seg Neutrophils % Seg Neuts % (Manual) Lymphocytes % (Manual) Monocytes % (Manual) Eosinophils % (Manual) Basophils % (Manual) Nucleated RBC % Seg Neutrophils # Seg Neutrophils # Man Lymphocytes # (Manual) Monocytes # (Manual) Eosinophils # (Manual) PT INR Fibrinogen dRVVT Confirm Interp Factor V Activity POC ABG pH POC ABG pCO2 27.7 L POC ABG pO2 120 H Sodium Potassium Chloride Carbon Dioxide BUN Creatinine Glucose POC Glucose 232 H 167 H Lactic Acid Calcium Phosphorus Magnesium Direct Bilirubin ALT Alkaline Phosphatase Troponin T C-Reactive Protein Total Protein Albumin Triglycerides Cholesterol LDL Cholesterol Direct HDL Cholesterol Urine WBC (Auto) Urine Creatinine Urine Total Protein Vancomycin Trough Rheumatoid Factor Complement C4 Miscellaneous Test Crossmatch 09/16/16 09/16/16 09/16/16 03:58 10:27 10:27 WBC 19.0 H RBC 2.77 L Hgb 6.5 L Hct 20.9 L MCV 76 L MCH 23 L MCHC RDW 19.3 H Plt Count Lymph % (Auto) 11.0 L [place] % (Auto) Lymph # [place] # 1.1 H Baso # Seg Neutrophils % 82.5 H Seg Neuts % (Manual) Lymphocytes % (Manual) Monocytes % (Manual) Eosinophils % (Manual) Basophils % (Manual) Nucleated RBC % Seg Neutrophils # 15.7 H Seg Neutrophils # Man Lymphocytes # (Manual) Monocytes # (Manual) Eosinophils # (Manual) PT INR Fibrinogen dRVVT Confirm Interp Factor V Activity POC ABG pH POC ABG pCO2 POC ABG pO2 Sodium Potassium Chloride 109.3 H Carbon Dioxide 18 L BUN 139 H Creatinine 4.1 H Glucose 144 H POC Glucose 146 H Lactic Acid Calcium 8.1 L Phosphorus Magnesium Direct Bilirubin ALT Alkaline Phosphatase Troponin T C-Reactive Protein Total Protein Albumin Triglycerides Cholesterol LDL Cholesterol Direct HDL Cholesterol Urine WBC (Auto) Urine Creatinine Urine Total Protein Vancomycin Trough Rheumatoid Factor Complement C4 Miscellaneous Test Crossmatch 09/16/16 09/16/16 09/16/16 12:04 12:10 13:55 WBC RBC Hgb Hct MCV MCH MCHC RDW Plt Count Lymph % (Auto) [place] % (Auto) Lymph # [place] # Baso # Seg Neutrophils % Seg Neuts % (Manual) Lymphocytes % (Manual) Monocytes % (Manual) Eosinophils % (Manual) Basophils % (Manual) Nucleated RBC % Seg Neutrophils # Seg Neutrophils # Man Lymphocytes # (Manual) Monocytes # (Manual) Eosinophils # (Manual) PT INR Fibrinogen dRVVT Confirm Interp Factor V Activity POC ABG pH POC ABG pCO2 32.9 L POC ABG pO2 Sodium Potassium Chloride Carbon Dioxide BUN Creatinine Glucose POC Glucose 185 H Lactic Acid Calcium Phosphorus Magnesium Direct Bilirubin ALT Alkaline Phosphatase Troponin T C-Reactive Protein Total Protein Albumin Triglycerides Cholesterol LDL Cholesterol Direct HDL Cholesterol Urine WBC (Auto) Urine Creatinine Urine Total Protein Vancomycin Trough Rheumatoid Factor Complement C4 Miscellaneous Test Crossmatch See Detail 09/16/16 09/16/16 09/16/16 17:55 19:19 23:48 WBC RBC Hgb Hct MCV MCH MCHC RDW Plt Count Lymph % (Auto) [place] % (Auto) Lymph # [place] # Baso # Seg Neutrophils % Seg Neuts % (Manual) Lymphocytes % (Manual) Monocytes % (Manual) Eosinophils % (Manual) Basophils % (Manual) Nucleated RBC % Seg Neutrophils # Seg Neutrophils # Man Lymphocytes # (Manual) Monocytes # (Manual) Eosinophils # (Manual) PT INR Fibrinogen dRVVT Confirm Interp Factor V Activity POC ABG pH POC ABG pCO2 POC ABG pO2 Sodium Potassium Chloride Carbon Dioxide BUN Creatinine Glucose POC Glucose 222 H 107 H Lactic Acid Calcium Phosphorus Magnesium Direct Bilirubin ALT Alkaline Phosphatase Troponin T C-Reactive Protein Total Protein Albumin Triglycerides Cholesterol LDL Cholesterol Direct HDL Cholesterol Urine WBC (Auto) Urine Creatinine 47.4 H Urine Total Protein 16 H Vancomycin Trough Rheumatoid Factor Complement C4 Miscellaneous Test Crossmatch 09/17/16 09/17/16 09/17/16 03:45 03:45 04:55 WBC 19.6 H RBC 3.41 L Hgb 8.5 L Hct 26.7 L MCV 78 L MCH 25 L MCHC RDW 19.9 H Plt Count Lymph % (Auto) 9.3 L [place] % (Auto) Lymph # [place] # 1.2 H Baso # Seg Neutrophils % 83.9 H Seg Neuts % (Manual) Lymphocytes % (Manual) Monocytes % (Manual) Eosinophils % (Manual) Basophils % (Manual) Nucleated RBC % Seg Neutrophils # 16.4 H Seg Neutrophils # Man Lymphocytes # (Manual) Monocytes # (Manual) Eosinophils # (Manual) PT INR Fibrinogen dRVVT Confirm Interp Factor V Activity POC ABG pH POC ABG pCO2 POC ABG pO2 Sodium 146 H Potassium 5.1 H Chloride 110.9 H Carbon Dioxide 16 L BUN 146 H Creatinine 4.0 H Glucose 108 H POC Glucose 133 H Lactic Acid Calcium Phosphorus Magnesium 3.00 H Direct Bilirubin ALT Alkaline Phosphatase Troponin T C-Reactive Protein Total Protein Albumin Triglycerides Cholesterol LDL Cholesterol Direct HDL Cholesterol Urine WBC (Auto) Urine Creatinine Urine Total Protein Vancomycin Trough Rheumatoid Factor Complement C4 Miscellaneous Test Crossmatch 09/17/16 09/17/16 09/17/16 11:15 17:33 23:47 WBC RBC Hgb Hct MCV MCH MCHC RDW Plt Count Lymph % (Auto) [place] % (Auto) Lymph # [place] # Baso # Seg Neutrophils % Seg Neuts % (Manual) Lymphocytes % (Manual) Monocytes % (Manual) Eosinophils % (Manual) Basophils % (Manual) Nucleated RBC % Seg Neutrophils # Seg Neutrophils # Man Lymphocytes # (Manual) Monocytes # (Manual) Eosinophils # (Manual) PT INR Fibrinogen dRVVT Confirm Interp Factor V Activity POC ABG pH POC ABG pCO2 POC ABG pO2 Sodium Potassium Chloride Carbon Dioxide BUN Creatinine Glucose POC Glucose 176 H 246 H 148 H Lactic Acid Calcium Phosphorus Magnesium Direct Bilirubin ALT Alkaline Phosphatase Troponin T C-Reactive Protein Total Protein Albumin Triglycerides Cholesterol LDL Cholesterol Direct HDL Cholesterol Urine WBC (Auto) Urine Creatinine Urine Total Protein Vancomycin Trough Rheumatoid Factor Complement C4 Miscellaneous Test Crossmatch 09/18/16 09/18/16 09/18/16 05:33 08:31 08:31 WBC 18.0 H RBC 3.17 L Hgb 9.0 L Hct 25.7 L MCV MCH MCHC 35 H RDW 20.4 H Plt Count Lymph % (Auto) [place] % (Auto) Lymph # [place] # Baso # Seg Neutrophils % Seg Neuts % (Manual) Lymphocytes % (Manual) Monocytes % (Manual) Eosinophils % (Manual) Basophils % (Manual) Nucleated RBC % Seg Neutrophils # Seg Neutrophils # Man Lymphocytes # (Manual) Monocytes # (Manual) Eosinophils # (Manual) PT INR Fibrinogen dRVVT Confirm Interp Factor V Activity POC ABG pH POC ABG pCO2 POC ABG pO2 Sodium Potassium Chloride Carbon Dioxide 15 L BUN 124 H Creatinine 3.8 H Glucose POC Glucose 120 H Lactic Acid Calcium 8.1 L Phosphorus Magnesium Direct Bilirubin ALT Alkaline Phosphatase Troponin T C-Reactive Protein Total Protein Albumin Triglycerides Cholesterol LDL Cholesterol Direct HDL Cholesterol Urine WBC (Auto) Urine Creatinine Urine Total Protein Vancomycin Trough Rheumatoid Factor Complement C4 Miscellaneous Test Crossmatch 09/18/16 09/18/16 09/18/16 12:03 15:34 17:50 WBC RBC Hgb Hct MCV MCH MCHC RDW Plt Count Lymph % (Auto) [place] % (Auto) Lymph # [place] # Baso # Seg Neutrophils % Seg Neuts % (Manual) Lymphocytes % (Manual) Monocytes % (Manual) Eosinophils % (Manual) Basophils % (Manual) Nucleated RBC % Seg Neutrophils # Seg Neutrophils # Man Lymphocytes # (Manual) Monocytes # (Manual) Eosinophils # (Manual) PT INR Fibrinogen dRVVT Confirm Interp Factor V Activity POC ABG pH POC ABG pCO2 25.7 L POC ABG pO2 66 L Sodium Potassium Chloride Carbon Dioxide BUN Creatinine Glucose POC Glucose 156 H 220 H Lactic Acid Calcium Phosphorus Magnesium Direct Bilirubin ALT Alkaline Phosphatase Troponin T C-Reactive Protein Total Protein Albumin Triglycerides Cholesterol LDL Cholesterol Direct HDL Cholesterol Urine WBC (Auto) Urine Creatinine Urine Total Protein Vancomycin Trough Rheumatoid Factor Complement C4 Miscellaneous Test Crossmatch 09/19/16 09/19/16 09/19/16 06:21 09:50 09:50 WBC 17.1 H RBC 3.49 L Hgb 9.0 L Hct 28.1 L MCV MCH 26 L MCHC RDW 20.8 H Plt Count Lymph % (Auto) 11.5 L [place] % (Auto) 7.5 H Lymph # [place] # 1.3 H Baso # Seg Neutrophils % 79.8 H Seg Neuts % (Manual) Lymphocytes % (Manual) Monocytes % (Manual) Eosinophils % (Manual) Basophils % (Manual) Nucleated RBC % Seg Neutrophils # 13.7 H Seg Neutrophils # Man Lymphocytes # (Manual) Monocytes # (Manual) Eosinophils # (Manual) PT INR Fibrinogen dRVVT Confirm Interp Factor V Activity POC ABG pH POC ABG pCO2 POC ABG pO2 Sodium Potassium Chloride 108.6 H Carbon Dioxide 15 L BUN 125 H Creatinine 4.1 H Glucose 124 H POC Glucose 119 H Lactic Acid Calcium Phosphorus Magnesium Direct Bilirubin ALT Alkaline Phosphatase Troponin T C-Reactive Protein Total Protein Albumin Triglycerides Cholesterol LDL Cholesterol Direct HDL Cholesterol Urine WBC (Auto) Urine Creatinine Urine Total Protein Vancomycin Trough Rheumatoid Factor Complement C4 Miscellaneous Test Crossmatch 09/19/16 09/19/16 09/19/16 11:25 17:53 23:36 WBC RBC Hgb Hct MCV MCH MCHC RDW Plt Count Lymph % (Auto) [place] % (Auto) Lymph # [place] # Baso # Seg Neutrophils % Seg Neuts % (Manual) Lymphocytes % (Manual) Monocytes % (Manual) Eosinophils % (Manual) Basophils % (Manual) Nucleated RBC % Seg Neutrophils # Seg Neutrophils # Man Lymphocytes # (Manual) Monocytes # (Manual) Eosinophils # (Manual) PT INR Fibrinogen dRVVT Confirm Interp Factor V Activity POC ABG pH POC ABG pCO2 POC ABG pO2 Sodium Potassium Chloride Carbon Dioxide BUN Creatinine Glucose POC Glucose 160 H 245 H 121 H Lactic Acid Calcium Phosphorus Magnesium Direct Bilirubin ALT Alkaline Phosphatase Troponin T C-Reactive Protein Total Protein Albumin Triglycerides Cholesterol LDL Cholesterol Direct HDL Cholesterol Urine WBC (Auto) Urine Creatinine Urine Total Protein Vancomycin Trough Rheumatoid Factor Complement C4 Miscellaneous Test Crossmatch 09/20/16 09/20/16 09/20/16 04:10 04:10 04:10 WBC 17.0 H RBC 3.21 L Hgb 8.2 L Hct 25.5 L MCV MCH 26 L MCHC RDW 20.9 H Plt Count Lymph % (Auto) [place] % (Auto) Lymph # [place] # Baso # Seg Neutrophils % Seg Neuts % (Manual) Lymphocytes % (Manual) Monocytes % (Manual) Eosinophils % (Manual) Basophils % (Manual) Nucleated RBC % Seg Neutrophils # Seg Neutrophils # Man Lymphocytes # (Manual) Monocytes # (Manual) Eosinophils # (Manual) PT INR Fibrinogen dRVVT Confirm Interp Factor V Activity POC ABG pH POC ABG pCO2 POC ABG pO2 Sodium Potassium Chloride 111.0 H Carbon Dioxide 16 L BUN 129 H Creatinine 3.7 H Glucose 115 H POC Glucose Lactic Acid Calcium 8.2 L Phosphorus Magnesium Direct Bilirubin ALT Alkaline Phosphatase Troponin T C-Reactive Protein Total Protein Albumin Triglycerides 243 H Cholesterol LDL Cholesterol Direct HDL Cholesterol Urine WBC (Auto) Urine Creatinine Urine Total Protein Vancomycin Trough Rheumatoid Factor Complement C4 Miscellaneous Test Crossmatch 09/20/16 09/20/16 09/20/16 05:40 11:52 16:50 WBC RBC Hgb Hct MCV MCH MCHC RDW Plt Count Lymph % (Auto) [place] % (Auto) Lymph # [place] # Baso # Seg Neutrophils % Seg Neuts % (Manual) Lymphocytes % (Manual) Monocytes % (Manual) Eosinophils % (Manual) Basophils % (Manual) Nucleated RBC % Seg Neutrophils # Seg Neutrophils # Man Lymphocytes # (Manual) Monocytes # (Manual) Eosinophils # (Manual) PT INR Fibrinogen dRVVT Confirm Interp Factor V Activity POC ABG pH POC ABG pCO2 POC ABG pO2 Sodium Potassium Chloride Carbon Dioxide BUN Creatinine Glucose POC Glucose 131 H 183 H 236 H Lactic Acid Calcium Phosphorus Magnesium Direct Bilirubin ALT Alkaline Phosphatase Troponin T C-Reactive Protein Total Protein Albumin Triglycerides Cholesterol LDL Cholesterol Direct HDL Cholesterol Urine WBC (Auto) Urine Creatinine Urine Total Protein Vancomycin Trough Rheumatoid Factor Complement C4 Miscellaneous Test Crossmatch 09/20/16 09/21/16 09/21/16 23:51 03:30 04:44 WBC RBC Hgb Hct MCV MCH MCHC RDW Plt Count Lymph % (Auto) [place] % (Auto) Lymph # [place] # Baso # Seg Neutrophils % Seg Neuts % (Manual) Lymphocytes % (Manual) Monocytes % (Manual) Eosinophils % (Manual) Basophils % (Manual) Nucleated RBC % Seg Neutrophils # Seg Neutrophils # Man Lymphocytes # (Manual) Monocytes # (Manual) Eosinophils # (Manual) PT INR Fibrinogen dRVVT Confirm Interp Factor V Activity POC ABG pH POC ABG pCO2 POC ABG pO2 Sodium Potassium Chloride Carbon Dioxide BUN Creatinine Glucose POC Glucose 114 H 141 H Lactic Acid Calcium Phosphorus Magnesium 2.70 H Direct Bilirubin ALT Alkaline Phosphatase Troponin T C-Reactive Protein Total Protein Albumin Triglycerides Cholesterol LDL Cholesterol Direct HDL Cholesterol Urine WBC (Auto) Urine Creatinine Urine Total Protein Vancomycin Trough Rheumatoid Factor Complement C4 Miscellaneous Test Crossmatch 09/21/16 09/21/16 09/21/16 07:45 07:45 10:01 WBC 13.8 H RBC 2.94 L Hgb 7.5 L Hct 23.5 L MCV MCH 26 L MCHC RDW 21.2 H Plt Count Lymph % (Auto) 6.9 L [place] % (Auto) 9.4 H Lymph # 0.9 L [place] # 1.3 H Baso # Seg Neutrophils % 83.2 H Seg Neuts % (Manual) Lymphocytes % (Manual) Monocytes % (Manual) Eosinophils % (Manual) Basophils % (Manual) Nucleated RBC % Seg Neutrophils # 11.5 H Seg Neutrophils # Man Lymphocytes # (Manual) Monocytes # (Manual) Eosinophils # (Manual) PT INR Fibrinogen dRVVT Confirm Interp Factor V Activity POC ABG pH 7.308 L POC ABG pCO2 31.9 L POC ABG pO2 148 H Sodium 147 H Potassium Chloride 114.2 H Carbon Dioxide 15 L BUN 120 H Creatinine 3.9 H Glucose 156 H POC Glucose Lactic Acid Calcium 8.2 L Phosphorus Magnesium Direct Bilirubin ALT Alkaline Phosphatase Troponin T C-Reactive Protein Total Protein Albumin Triglycerides Cholesterol LDL Cholesterol Direct HDL Cholesterol Urine WBC (Auto) Urine Creatinine Urine Total Protein Vancomycin Trough Rheumatoid Factor Complement C4 Miscellaneous Test Crossmatch 0809/21/16 09/21/16 12:00 12:03 13:00 WBC RBC Hgb Hct MCV MCH MCHC RDW Plt Count Lymph % (Auto) [place] % (Auto) Lymph # [place] # Baso # Seg Neutrophils % Seg Neuts % (Manual) Lymphocytes % (Manual) Monocytes % (Manual) Eosinophils % (Manual) Basophils % (Manual) Nucleated RBC % Seg Neutrophils # Seg Neutrophils # Man Lymphocytes # (Manual) Monocytes # (Manual) Eosinophils # (Manual) PT INR Fibrinogen dRVVT Confirm Interp Factor V Activity POC ABG pH POC ABG pCO2 POC ABG pO2 Sodium Potassium Chloride Carbon Dioxide BUN Creatinine Glucose POC Glucose 163 H Lactic Acid Calcium Phosphorus Magnesium Direct Bilirubin ALT Alkaline Phosphatase Troponin T C-Reactive Protein Total Protein Albumin Triglycerides Cholesterol LDL Cholesterol Direct HDL Cholesterol Urine WBC (Auto) Urine Creatinine 54.8 H Urine Total Protein Vancomycin Trough 2.3 L Rheumatoid Factor Complement C4 Miscellaneous Test Crossmatch 09/21/16 09/21/16 09/22/16 16:51 23:17 06:27 WBC RBC Hgb Hct MCV MCH MCHC RDW Plt Count Lymph % (Auto) [place] % (Auto) Lymph # [place] # Baso # Seg Neutrophils % Seg Neuts % (Manual) Lymphocytes % (Manual) Monocytes % (Manual) Eosinophils % (Manual) Basophils % (Manual) Nucleated RBC % Seg Neutrophils # Seg Neutrophils # Man Lymphocytes # (Manual) Monocytes # (Manual) Eosinophils # (Manual) PT INR Fibrinogen dRVVT Confirm Interp Factor V Activity POC ABG pH POC ABG pCO2 POC ABG pO2 Sodium Potassium Chloride Carbon Dioxide BUN Creatinine Glucose POC Glucose 206 H 114 H 115 H Lactic Acid Calcium Phosphorus Magnesium Direct Bilirubin ALT Alkaline Phosphatase Troponin T C-Reactive Protein Total Protein Albumin Triglycerides Cholesterol LDL Cholesterol Direct HDL Cholesterol Urine WBC (Auto) Urine Creatinine Urine Total Protein Vancomycin Trough Rheumatoid Factor Complement C4 Miscellaneous Test Crossmatch 09/22/16 09/22/16 09/22/16 07:50 07:50 12:00 WBC 17.8 H RBC 3.04 L Hgb 8.0 L Hct 24.7 L MCV MCH 26 L MCHC RDW 21.6 H Plt Count Lymph % (Auto) [place] % (Auto) Lymph # [place] # Baso # Seg Neutrophils % Seg Neuts % (Manual) Lymphocytes % (Manual) Monocytes % (Manual) Eosinophils % (Manual) Basophils % (Manual) Nucleated RBC % Seg Neutrophils # Seg Neutrophils # Man Lymphocytes # (Manual) Monocytes # (Manual) Eosinophils # (Manual) PT INR Fibrinogen dRVVT Confirm Interp Factor V Activity POC ABG pH POC ABG pCO2 POC ABG pO2 Sodium 150 H Potassium Chloride 118.2 H Carbon Dioxide 14 L BUN 111 H Creatinine 3.7 H Glucose 157 H POC Glucose 183 H Lactic Acid Calcium Phosphorus Magnesium Direct Bilirubin ALT Alkaline Phosphatase Troponin T C-Reactive Protein Total Protein Albumin Triglycerides Cholesterol LDL Cholesterol Direct HDL Cholesterol Urine WBC (Auto) Urine Creatinine Urine Total Protein Vancomycin Trough Rheumatoid Factor Complement C4 Miscellaneous Test Crossmatch 09/22/16 09/22/16 09/23/16 17:29 23:10 05:00 WBC 19.2 H RBC 3.13 L Hgb 8.0 L Hct 25.2 L MCV MCH 26 L MCHC RDW 22.1 H Plt Count Lymph % (Auto) [place] % (Auto) Lymph # [place] # Baso # Seg Neutrophils % Seg Neuts % (Manual) 92.0 H Lymphocytes % (Manual) 3.0 L Monocytes % (Manual) Eosinophils % (Manual) Basophils % (Manual) Nucleated RBC % Seg Neutrophils # Seg Neutrophils # Man 17.7 H Lymphocytes # (Manual) 0.6 L Monocytes # (Manual) Eosinophils # (Manual) PT INR Fibrinogen dRVVT Confirm Interp Factor V Activity POC ABG pH POC ABG pCO2 POC ABG pO2 Sodium Potassium Chloride Carbon Dioxide BUN Creatinine Glucose POC Glucose 197 H 169 H Lactic Acid Calcium Phosphorus Magnesium Direct Bilirubin ALT Alkaline Phosphatase Troponin T C-Reactive Protein Total Protein Albumin Triglycerides Cholesterol LDL Cholesterol Direct HDL Cholesterol Urine WBC (Auto) Urine Creatinine Urine Total Protein Vancomycin Trough Rheumatoid Factor Complement C4 Miscellaneous Test Crossmatch 09/23/16 09/23/16 09/23/16 05:00 05:00 05:10 WBC RBC Hgb Hct MCV MCH MCHC RDW Plt Count Lymph % (Auto) [place] % (Auto) Lymph # [place] # Baso # Seg Neutrophils % Seg Neuts % (Manual) Lymphocytes % (Manual) Monocytes % (Manual) Eosinophils % (Manual) Basophils % (Manual) Nucleated RBC % Seg Neutrophils # Seg Neutrophils # Man Lymphocytes # (Manual) Monocytes # (Manual) Eosinophils # (Manual) PT INR Fibrinogen dRVVT Confirm Interp Factor V Activity POC ABG pH POC ABG pCO2 POC ABG pO2 Sodium 147 H Potassium 3.2 L Chloride 115.7 H Carbon Dioxide 13 L BUN 111 H Creatinine 3.8 H Glucose 194 H POC Glucose 188 H Lactic Acid Calcium 7.3 L D Phosphorus Magnesium Direct Bilirubin ALT Alkaline Phosphatase Troponin T C-Reactive Protein 3.20 H Total Protein Albumin Triglycerides Cholesterol LDL Cholesterol Direct HDL Cholesterol Urine WBC (Auto) Urine Creatinine Urine Total Protein Vancomycin Trough Rheumatoid Factor Complement C4 Miscellaneous Test Crossmatch 09/23/16 09/23/16 09/23/16 11:37 12:29 18:01 WBC RBC Hgb Hct MCV MCH MCHC RDW Plt Count Lymph % (Auto) [place] % (Auto) Lymph # [place] # Baso # Seg Neutrophils % Seg Neuts % (Manual) Lymphocytes % (Manual) Monocytes % (Manual) Eosinophils % (Manual) Basophils % (Manual) Nucleated RBC % Seg Neutrophils # Seg Neutrophils # Man Lymphocytes # (Manual) Monocytes # (Manual) Eosinophils # (Manual) PT INR Fibrinogen dRVVT Confirm Interp Factor V Activity POC ABG pH POC ABG pCO2 18.9 L POC ABG pO2 143 H Sodium Potassium Chloride Carbon Dioxide BUN Creatinine Glucose POC Glucose 153 H 108 H Lactic Acid Calcium Phosphorus Magnesium Direct Bilirubin ALT Alkaline Phosphatase Troponin T C-Reactive Protein Total Protein Albumin Triglycerides Cholesterol LDL Cholesterol Direct HDL Cholesterol Urine WBC (Auto) Urine Creatinine Urine Total Protein Vancomycin Trough Rheumatoid Factor Complement C4 Miscellaneous Test Crossmatch 09/23/16 09/23/16 09/24/16 21:19 23:43 05:16 WBC RBC Hgb Hct MCV MCH MCHC RDW Plt Count Lymph % (Auto) [place] % (Auto) Lymph # [place] # Baso # Seg Neutrophils % Seg Neuts % (Manual) Lymphocytes % (Manual) Monocytes % (Manual) Eosinophils % (Manual) Basophils % (Manual) Nucleated RBC % Seg Neutrophils # Seg Neutrophils # Man Lymphocytes # (Manual) Monocytes # (Manual) Eosinophils # (Manual) PT INR Fibrinogen dRVVT Confirm Interp Factor V Activity POC ABG pH POC ABG pCO2 17.3 L POC ABG pO2 112 H Sodium Potassium Chloride Carbon Dioxide BUN Creatinine Glucose POC Glucose 143 H 164 H Lactic Acid Calcium Phosphorus Magnesium Direct Bilirubin ALT Alkaline Phosphatase Troponin T C-Reactive Protein Total Protein Albumin Triglycerides Cholesterol LDL Cholesterol Direct HDL Cholesterol Urine WBC (Auto) Urine Creatinine Urine Total Protein Vancomycin Trough Rheumatoid Factor Complement C4 Miscellaneous Test Crossmatch 09/24/16 09/24/16 09/24/16 05:21 11:58 17:06 WBC RBC Hgb Hct MCV MCH MCHC RDW Plt Count Lymph % (Auto) [place] % (Auto) Lymph # [place] # Baso # Seg Neutrophils % Seg Neuts % (Manual) Lymphocytes % (Manual) Monocytes % (Manual) Eosinophils % (Manual) Basophils % (Manual) Nucleated RBC % Seg Neutrophils # Seg Neutrophils # Man Lymphocytes # (Manual) Monocytes # (Manual) Eosinophils # (Manual) PT INR Fibrinogen dRVVT Confirm Interp Factor V Activity POC ABG pH POC ABG pCO2 POC ABG pO2 Sodium Potassium Chloride Carbon Dioxide 10 L BUN 103 H Creatinine 4.3 H Glucose 163 H POC Glucose 173 H 167 H Lactic Acid Calcium 6.5 L Phosphorus Magnesium Direct Bilirubin ALT Alkaline Phosphatase Troponin T C-Reactive Protein Total Protein Albumin Triglycerides Cholesterol LDL Cholesterol Direct HDL Cholesterol Urine WBC (Auto) Urine Creatinine Urine Total Protein Vancomycin Trough Rheumatoid Factor Complement C4 Miscellaneous Test Crossmatch 09/24/16 09/24/16 09/24/16 20:15 21:02 23:48 WBC RBC Hgb Hct MCV MCH MCHC RDW Plt Count Lymph % (Auto) [place] % (Auto) Lymph # [place] # Baso # Seg Neutrophils % Seg Neuts % (Manual) Lymphocytes % (Manual) Monocytes % (Manual) Eosinophils % (Manual) Basophils % (Manual) Nucleated RBC % Seg Neutrophils # Seg Neutrophils # Man Lymphocytes # (Manual) Monocytes # (Manual) Eosinophils # (Manual) PT INR Fibrinogen dRVVT Confirm Interp Factor V Activity POC ABG pH 7.288 L POC ABG pCO2 30.2 L 21.5 L POC ABG pO2 32 L 39 L Sodium Potassium Chloride Carbon Dioxide BUN Creatinine Glucose POC Glucose 109 H Lactic Acid Calcium Phosphorus Magnesium Direct Bilirubin ALT Alkaline Phosphatase Troponin T C-Reactive Protein Total Protein Albumin Triglycerides Cholesterol LDL Cholesterol Direct HDL Cholesterol Urine WBC (Auto) Urine Creatinine Urine Total Protein Vancomycin Trough Rheumatoid Factor Complement C4 Miscellaneous Test Crossmatch 09/25/16 09/25/16 09/25/16 04:20 04:20 04:20 WBC RBC 2.58 L Hgb 7.0 L Hct 21.0 L MCV MCH 27 L MCHC RDW 23.8 H Plt Count Lymph % (Auto) [place] % (Auto) Lymph # [place] # Baso # Seg Neutrophils % Seg Neuts % (Manual) Lymphocytes % (Manual) 12.0 L Monocytes % (Manual) Eosinophils % (Manual) 7.0 H Basophils % (Manual) 2.0 H Nucleated RBC % Seg Neutrophils # Seg Neutrophils # Man Lymphocytes # (Manual) 0.9 L Monocytes # (Manual) Eosinophils # (Manual) 0.5 H PT INR Fibrinogen dRVVT Confirm Interp Factor V Activity POC ABG pH POC ABG pCO2 POC ABG pO2 Sodium Potassium Chloride Carbon Dioxide 15 L BUN 72 H Creatinine 3.8 H Glucose POC Glucose Lactic Acid Calcium 6.0 L Phosphorus 4.60 H Magnesium 1.60 L Direct Bilirubin ALT Alkaline Phosphatase Troponin T C-Reactive Protein Total Protein Albumin Triglycerides Cholesterol LDL Cholesterol Direct HDL Cholesterol Urine WBC (Auto) Urine Creatinine Urine Total Protein Vancomycin Trough Rheumatoid Factor Complement C4 Miscellaneous Test Crossmatch 09/25/16 09/25/16 09/25/16 04:57 08:02 10:30 WBC RBC Hgb Hct MCV MCH MCHC RDW Plt Count Lymph % (Auto) [place] % (Auto) Lymph # [place] # Baso # Seg Neutrophils % Seg Neuts % (Manual) Lymphocytes % (Manual) Monocytes % (Manual) Eosinophils % (Manual) Basophils % (Manual) Nucleated RBC % Seg Neutrophils # Seg Neutrophils # Man Lymphocytes # (Manual) Monocytes # (Manual) Eosinophils # (Manual) PT INR Fibrinogen dRVVT Confirm Interp Factor V Activity POC ABG pH POC ABG pCO2 24.7 L POC ABG pO2 152 H Sodium Potassium Chloride Carbon Dioxide BUN Creatinine Glucose POC Glucose 113 H Lactic Acid Calcium Phosphorus Magnesium Direct Bilirubin ALT Alkaline Phosphatase Troponin T C-Reactive Protein Total Protein Albumin Triglycerides Cholesterol LDL Cholesterol Direct HDL Cholesterol Urine WBC (Auto) Urine Creatinine Urine Total Protein Vancomycin Trough Rheumatoid Factor Complement C4 Miscellaneous Test Crossmatch See Detail 09/25/16 09/25/16 09/25/16 12:05 17:44 23:47 WBC RBC Hgb Hct MCV MCH MCHC RDW Plt Count Lymph % (Auto) [place] % (Auto) Lymph # [place] # Baso # Seg Neutrophils % Seg Neuts % (Manual) Lymphocytes % (Manual) Monocytes % (Manual) Eosinophils % (Manual) Basophils % (Manual) Nucleated RBC % Seg Neutrophils # Seg Neutrophils # Man Lymphocytes # (Manual) Monocytes # (Manual) Eosinophils # (Manual) PT INR Fibrinogen dRVVT Confirm Interp Factor V Activity POC ABG pH POC ABG pCO2 POC ABG pO2 Sodium Potassium Chloride Carbon Dioxide BUN Creatinine Glucose POC Glucose 117 H 119 H 150 H Lactic Acid Calcium Phosphorus Magnesium Direct Bilirubin ALT Alkaline Phosphatase Troponin T C-Reactive Protein Total Protein Albumin Triglycerides Cholesterol LDL Cholesterol Direct HDL Cholesterol Urine WBC (Auto) Urine Creatinine Urine Total Protein Vancomycin Trough Rheumatoid Factor Complement C4 Miscellaneous Test Crossmatch 09/26/16 09/26/16 09/26/16 04:25 04:25 04:25 WBC RBC 2.65 L Hgb 7.4 L Hct 21.6 L MCV MCH MCHC RDW 22.5 H Plt Count Lymph % (Auto) [place] % (Auto) Lymph # [place] # Baso # Seg Neutrophils % Seg Neuts % (Manual) Lymphocytes % (Manual) 6.0 L Monocytes % (Manual) Eosinophils % (Manual) 11.0 H Basophils % (Manual) Nucleated RBC % Seg Neutrophils # Seg Neutrophils # Man Lymphocytes # (Manual) 0.4 L Monocytes # (Manual) Eosinophils # (Manual) 0.6 H PT INR Fibrinogen dRVVT Confirm Interp Factor V Activity POC ABG pH POC ABG pCO2 POC ABG pO2 Sodium Potassium Chloride 97.0 L Carbon Dioxide 19 L BUN 43 H Creatinine 2.6 H Glucose 130 H POC Glucose Lactic Acid 4.40 H* Calcium 6.7 L Phosphorus Magnesium Direct Bilirubin ALT Alkaline Phosphatase Troponin T C-Reactive Protein Total Protein Albumin Triglycerides Cholesterol LDL Cholesterol Direct HDL Cholesterol Urine WBC (Auto) Urine Creatinine Urine Total Protein Vancomycin Trough Rheumatoid Factor Complement C4 Miscellaneous Test Crossmatch 09/26/16 09/26/16 09/26/16 05:20 11:44 12:12 WBC RBC Hgb Hct MCV MCH MCHC RDW Plt Count Lymph % (Auto) [place] % (Auto) Lymph # [place] # Baso # Seg Neutrophils % Seg Neuts % (Manual) Lymphocytes % (Manual) Monocytes % (Manual) Eosinophils % (Manual) Basophils % (Manual) Nucleated RBC % Seg Neutrophils # Seg Neutrophils # Man Lymphocytes # (Manual) Monocytes # (Manual) Eosinophils # (Manual) PT INR Fibrinogen dRVVT Confirm Interp Factor V Activity POC ABG pH POC ABG pCO2 27.0 L POC ABG pO2 69 L Sodium Potassium Chloride Carbon Dioxide BUN Creatinine Glucose POC Glucose 121 H 128 H Lactic Acid Calcium Phosphorus Magnesium Direct Bilirubin ALT Alkaline Phosphatase Troponin T C-Reactive Protein Total Protein Albumin Triglycerides Cholesterol LDL Cholesterol Direct HDL Cholesterol Urine WBC (Auto) Urine Creatinine Urine Total Protein Vancomycin Trough Rheumatoid Factor Complement C4 Miscellaneous Test Crossmatch 09/26/16 09/26/16 09/27/16 18:31 23:40 08:20 WBC RBC Hgb Hct MCV MCH MCHC RDW Plt Count Lymph % (Auto) [place] % (Auto) Lymph # [place] # Baso # Seg Neutrophils % Seg Neuts % (Manual) Lymphocytes % (Manual) Monocytes % (Manual) Eosinophils % (Manual) Basophils % (Manual) Nucleated RBC % Seg Neutrophils # Seg Neutrophils # Man Lymphocytes # (Manual) Monocytes # (Manual) Eosinophils # (Manual) PT INR Fibrinogen dRVVT Confirm Interp Factor V Activity POC ABG pH POC ABG pCO2 POC ABG pO2 Sodium Potassium Chloride Carbon Dioxide BUN Creatinine Glucose POC Glucose 120 H 133 H Lactic Acid 4.10 H* Calcium Phosphorus Magnesium Direct Bilirubin ALT Alkaline Phosphatase Troponin T C-Reactive Protein Total Protein Albumin Triglycerides Cholesterol LDL Cholesterol Direct HDL Cholesterol Urine WBC (Auto) Urine Creatinine Urine Total Protein Vancomycin Trough Rheumatoid Factor Complement C4 Miscellaneous Test Crossmatch 09/27/16 09/27/16 09/27/16 11:23 15:00 18:15 WBC RBC Hgb Hct MCV MCH MCHC RDW Plt Count Lymph % (Auto) [place] % (Auto) Lymph # [place] # Baso # Seg Neutrophils % Seg Neuts % (Manual) Lymphocytes % (Manual) Monocytes % (Manual) Eosinophils % (Manual) Basophils % (Manual) Nucleated RBC % Seg Neutrophils # Seg Neutrophils # Man Lymphocytes # (Manual) Monocytes # (Manual) Eosinophils # (Manual) PT INR Fibrinogen dRVVT Confirm Interp Factor V Activity POC ABG pH 7.459 H POC ABG pCO2 27.1 L POC ABG pO2 140 H Sodium Potassium Chloride Carbon Dioxide BUN Creatinine Glucose POC Glucose 114 H 127 H Lactic Acid Calcium Phosphorus Magnesium Direct Bilirubin ALT Alkaline Phosphatase Troponin T C-Reactive Protein Total Protein Albumin Triglycerides Cholesterol LDL Cholesterol Direct HDL Cholesterol Urine WBC (Auto) Urine Creatinine Urine Total Protein Vancomycin Trough Rheumatoid Factor Complement C4 Miscellaneous Test Crossmatch 09/27/16 09/27/16 09/28/16 Unknown Unknown 03:45 WBC RBC 2.49 L Hgb 6.8 L Hct 20.7 L MCV MCH 27 L MCHC RDW 22.1 H Plt Count Lymph % (Auto) [place] % (Auto) Lymph # [place] # Baso # Seg Neutrophils % Seg Neuts % (Manual) 32.0 L Lymphocytes % (Manual) 12.0 L Monocytes % (Manual) 11.0 H Eosinophils % (Manual) 10.0 H Basophils % (Manual) Nucleated RBC % Seg Neutrophils # Seg Neutrophils # Man Lymphocytes # (Manual) 1.0 L Monocytes # (Manual) 0.9 H Eosinophils # (Manual) 0.8 H PT INR Fibrinogen dRVVT Confirm Interp Factor V Activity POC ABG pH POC ABG pCO2 POC ABG pO2 Sodium 135 L 135 L Potassium 3.5 L Chloride 93.6 L 94.4 L Carbon Dioxide 17 L 21 L BUN 45 H 28 H Creatinine 3.3 H 2.5 H Glucose 106 H POC Glucose Lactic Acid Calcium 7.3 L 7.1 L Phosphorus Magnesium Direct Bilirubin ALT Alkaline Phosphatase Troponin T C-Reactive Protein Total Protein Albumin Triglycerides Cholesterol LDL Cholesterol Direct HDL Cholesterol Urine WBC (Auto) Urine Creatinine Urine Total Protein Vancomycin Trough Rheumatoid Factor Complement C4 Miscellaneous Test Crossmatch 09/28/16 09/28/16 09/28/16 03:45 07:25 11:58 WBC 13.3 H RBC 3.01 L Hgb 8.4 L Hct 25.0 L MCV MCH MCHC RDW 20.5 H Plt Count 128 L Lymph % (Auto) [place] % (Auto) Lymph # [place] # Baso # Seg Neutrophils % Seg Neuts % (Manual) Lymphocytes % (Manual) 7.0 L Monocytes % (Manual) Eosinophils % (Manual) 6.0 H Basophils % (Manual) Nucleated RBC % Seg Neutrophils # Seg Neutrophils # Man Lymphocytes # (Manual) 0.9 L Monocytes # (Manual) Eosinophils # (Manual) 0.8 H PT INR Fibrinogen dRVVT Confirm Interp Factor V Activity POC ABG pH POC ABG pCO2 POC ABG pO2 Sodium Potassium Chloride Carbon Dioxide BUN Creatinine Glucose POC Glucose 121 H Lactic Acid 4.50 H* Calcium Phosphorus Magnesium Direct Bilirubin ALT Alkaline Phosphatase Troponin T C-Reactive Protein Total Protein Albumin Triglycerides Cholesterol LDL Cholesterol Direct HDL Cholesterol Urine WBC (Auto) Urine Creatinine Urine Total Protein Vancomycin Trough Rheumatoid Factor Complement C4 Miscellaneous Test Crossmatch 09/29/16 09/29/16 09/29/16 06:45 06:45 06:45 WBC 14.9 H RBC 2.74 L Hgb 7.6 L Hct 23.2 L MCV MCH MCHC RDW 20.5 H Plt Count 81 L Lymph % (Auto) [place] % (Auto) Lymph # [place] # Baso # Seg Neutrophils % Seg Neuts % (Manual) 81.0 H Lymphocytes % (Manual) 4.0 L Monocytes % (Manual) Eosinophils % (Manual) Basophils % (Manual) Nucleated RBC % Seg Neutrophils # Seg Neutrophils # Man 12.1 H Lymphocytes # (Manual) 0.6 L Monocytes # (Manual) Eosinophils # (Manual) PT INR Fibrinogen dRVVT Confirm Interp Factor V Activity POC ABG pH POC ABG pCO2 POC ABG pO2 Sodium 133 L Potassium 3.4 L Chloride 92.5 L Carbon Dioxide 21 L BUN 33 H Creatinine 3.0 H Glucose POC Glucose Lactic Acid Calcium 6.6 L Phosphorus Magnesium 1.40 L Direct Bilirubin 0.9 H ALT Alkaline Phosphatase Troponin T C-Reactive Protein Total Protein 4.3 L Albumin 1.3 L Triglycerides Cholesterol LDL Cholesterol Direct HDL Cholesterol Urine WBC (Auto) Urine Creatinine Urine Total Protein Vancomycin Trough Rheumatoid Factor Complement C4 Miscellaneous Test Crossmatch 09/29/16 09/29/16 09/30/16 17:52 20:12 00:07 WBC RBC Hgb Hct MCV MCH MCHC RDW Plt Count Lymph % (Auto) [place] % (Auto) Lymph # [place] # Baso # Seg Neutrophils % Seg Neuts % (Manual) Lymphocytes % (Manual) Monocytes % (Manual) Eosinophils % (Manual) Basophils % (Manual) Nucleated RBC % Seg Neutrophils # Seg Neutrophils # Man Lymphocytes # (Manual) Monocytes # (Manual) Eosinophils # (Manual) PT INR Fibrinogen dRVVT Confirm Interp Factor V Activity POC ABG pH POC ABG pCO2 POC ABG pO2 Sodium Potassium Chloride Carbon Dioxide BUN Creatinine Glucose POC Glucose 50 L 51 L Lactic Acid Calcium Phosphorus Magnesium Direct Bilirubin ALT Alkaline Phosphatase Troponin T 0.204 H* C-Reactive Protein Total Protein Albumin Triglycerides Cholesterol 31 L LDL Cholesterol Direct 4 L HDL Cholesterol 3 L Urine WBC (Auto) Urine Creatinine Urine Total Protein Vancomycin Trough Rheumatoid Factor Complement C4 Miscellaneous Test Crossmatch 09/30/16 09/30/16 09/30/16 01:30 05:15 06:10 WBC RBC Hgb Hct MCV MCH MCHC RDW Plt Count Lymph % (Auto) [place] % (Auto) Lymph # [place] # Baso # Seg Neutrophils % Seg Neuts % (Manual) Lymphocytes % (Manual) Monocytes % (Manual) Eosinophils % (Manual) Basophils % (Manual) Nucleated RBC % Seg Neutrophils # Seg Neutrophils # Man Lymphocytes # (Manual) Monocytes # (Manual) Eosinophils # (Manual) PT INR Fibrinogen dRVVT Confirm Interp Factor V Activity POC ABG pH POC ABG pCO2 POC ABG pO2 Sodium 133 L Potassium 3.2 L Chloride 93.2 L Carbon Dioxide 19 L BUN 36 H Creatinine 3.2 H Glucose 104 H POC Glucose 167 H 146 H Lactic Acid Calcium 6.4 L Phosphorus Magnesium 1.60 L Direct Bilirubin ALT Alkaline Phosphatase Troponin T C-Reactive Protein Total Protein Albumin Triglycerides Cholesterol LDL Cholesterol Direct HDL Cholesterol Urine WBC (Auto) Urine Creatinine Urine Total Protein Vancomycin Trough Rheumatoid Factor Complement C4 Miscellaneous Test Crossmatch 09/30/16 09/30/16 09/30/16 11:26 13:39 18:38 WBC RBC Hgb Hct MCV MCH MCHC RDW Plt Count Lymph % (Auto) [place] % (Auto) Lymph # [place] # Baso # Seg Neutrophils % Seg Neuts % (Manual) Lymphocytes % (Manual) Monocytes % (Manual) Eosinophils % (Manual) Basophils % (Manual) Nucleated RBC % Seg Neutrophils # Seg Neutrophils # Man Lymphocytes # (Manual) Monocytes # (Manual) Eosinophils # (Manual) PT INR Fibrinogen dRVVT Confirm Interp Factor V Activity POC ABG pH 7.479 H POC ABG pCO2 29.8 L POC ABG pO2 117 H Sodium Potassium Chloride Carbon Dioxide BUN Creatinine Glucose POC Glucose 140 H 122 H Lactic Acid Calcium Phosphorus Magnesium Direct Bilirubin ALT Alkaline Phosphatase Troponin T C-Reactive Protein Total Protein Albumin Triglycerides Cholesterol LDL Cholesterol Direct HDL Cholesterol Urine WBC (Auto) Urine Creatinine Urine Total Protein Vancomycin Trough Rheumatoid Factor Complement C4 Miscellaneous Test Crossmatch 10/01/16 10/01/16 10/01/16 06:00 06:00 12:37 WBC 12.6 H RBC 2.75 L Hgb 7.3 L Hct 23.3 L MCV MCH 27 L MCHC RDW 20.6 H Plt Count 72 L Lymph % (Auto) [place] % (Auto) Lymph # [place] # Baso # Seg Neutrophils % Seg Neuts % (Manual) 31.0 L Lymphocytes % (Manual) 8.0 L Monocytes % (Manual) Eosinophils % (Manual) Basophils % (Manual) Nucleated RBC % 3.0 H Seg Neutrophils # Seg Neutrophils # Man Lymphocytes # (Manual) 1.0 L Monocytes # (Manual) Eosinophils # (Manual) PT INR Fibrinogen dRVVT Confirm Interp Factor V Activity POC ABG pH POC ABG pCO2 POC ABG pO2 Sodium 127 L Potassium Chloride 86.8 L Carbon Dioxide 20 L BUN 42 H Creatinine 3.5 H Glucose POC Glucose 65 L Lactic Acid Calcium 7.0 L Phosphorus Magnesium Direct Bilirubin ALT Alkaline Phosphatase Troponin T C-Reactive Protein Total Protein Albumin Triglycerides Cholesterol LDL Cholesterol Direct HDL Cholesterol Urine WBC (Auto) Urine Creatinine Urine Total Protein Vancomycin Trough Rheumatoid Factor Complement C4 Miscellaneous Test Crossmatch 10/01/16 10/01/16 10/02/16 17:39 23:32 00:59 WBC RBC Hgb Hct MCV MCH MCHC RDW Plt Count Lymph % (Auto) [place] % (Auto) Lymph # [place] # Baso # Seg Neutrophils % Seg Neuts % (Manual) Lymphocytes % (Manual) Monocytes % (Manual) Eosinophils % (Manual) Basophils % (Manual) Nucleated RBC % Seg Neutrophils # Seg Neutrophils # Man Lymphocytes # (Manual) Monocytes # (Manual) Eosinophils # (Manual) PT INR Fibrinogen dRVVT Confirm Interp Factor V Activity POC ABG pH POC ABG pCO2 POC ABG pO2 Sodium Potassium Chloride Carbon Dioxide BUN Creatinine Glucose POC Glucose 107 H 52 L 145 H Lactic Acid Calcium Phosphorus Magnesium Direct Bilirubin ALT Alkaline Phosphatase Troponin T C-Reactive Protein Total Protein Albumin Triglycerides Cholesterol LDL Cholesterol Direct HDL Cholesterol Urine WBC (Auto) Urine Creatinine Urine Total Protein Vancomycin Trough Rheumatoid Factor Complement C4 Miscellaneous Test Crossmatch 10/02/16 10/02/16 10/02/16 10:30 10:50 10:50 WBC 14.7 H RBC 2.76 L Hgb 7.4 L Hct 23.6 L MCV MCH 27 L MCHC RDW 20.2 H Plt Count 79 L Lymph % (Auto) [place] % (Auto) Lymph # [place] # Baso # Seg Neutrophils % Seg Neuts % (Manual) 86.0 H Lymphocytes % (Manual) 6.0 L Monocytes % (Manual) Eosinophils % (Manual) Basophils % (Manual) Nucleated RBC % Seg Neutrophils # Seg Neutrophils # Man 12.6 H Lymphocytes # (Manual) 0.9 L Monocytes # (Manual) Eosinophils # (Manual) PT INR Fibrinogen dRVVT Confirm Interp Factor V Activity POC ABG pH 7.486 H POC ABG pCO2 30.1 L POC ABG pO2 108 H Sodium 131 L Potassium 3.4 L Chloride 89.9 L Carbon Dioxide BUN 26 H Creatinine 2.6 H Glucose POC Glucose Lactic Acid Calcium 7.0 L Phosphorus Magnesium Direct Bilirubin ALT Alkaline Phosphatase Troponin T C-Reactive Protein Total Protein Albumin Triglycerides Cholesterol LDL Cholesterol Direct HDL Cholesterol Urine WBC (Auto) Urine Creatinine Urine Total Protein Vancomycin Trough Rheumatoid Factor Complement C4 Miscellaneous Test Crossmatch 10/02/16 10/03/16 10/03/16 23:45 00:45 05:10 WBC 12.9 H RBC 2.77 L Hgb 7.6 L Hct 23.7 L MCV MCH 27 L MCHC RDW 19.7 H Plt Count 89 L Lymph % (Auto) [place] % (Auto) Lymph # [place] # Baso # Seg Neutrophils % Seg Neuts % (Manual) Lymphocytes % (Manual) 8.0 L Monocytes % (Manual) Eosinophils % (Manual) Basophils % (Manual) Nucleated RBC % Seg Neutrophils # 11.9 H Seg Neutrophils # Man Lymphocytes # (Manual) 1.0 L Monocytes # (Manual) Eosinophils # (Manual) PT INR Fibrinogen dRVVT Confirm Interp Factor V Activity POC ABG pH POC ABG pCO2 POC ABG pO2 Sodium Potassium Chloride Carbon Dioxide BUN Creatinine Glucose POC Glucose 55 L 199 H Lactic Acid Calcium Phosphorus Magnesium Direct Bilirubin ALT Alkaline Phosphatase Troponin T C-Reactive Protein Total Protein Albumin Triglycerides Cholesterol LDL Cholesterol Direct HDL Cholesterol Urine WBC (Auto) Urine Creatinine Urine Total Protein Vancomycin Trough Rheumatoid Factor Complement C4 Miscellaneous Test Crossmatch 10/03/16 10/03/16 10/03/16 05:10 12:14 13:18 WBC RBC Hgb Hct MCV MCH MCHC RDW Plt Count Lymph % (Auto) [place] % (Auto) Lymph # [place] # Baso # Seg Neutrophils % Seg Neuts % (Manual) Lymphocytes % (Manual) Monocytes % (Manual) Eosinophils % (Manual) Basophils % (Manual) Nucleated RBC % Seg Neutrophils # Seg Neutrophils # Man Lymphocytes # (Manual) Monocytes # (Manual) Eosinophils # (Manual) PT INR Fibrinogen dRVVT Confirm Interp Factor V Activity POC ABG pH POC ABG pCO2 POC ABG pO2 Sodium 129 L Potassium 3.3 L Chloride 88.8 L Carbon Dioxide 20 L BUN 29 H Creatinine 2.8 H Glucose POC Glucose 68 L 127 H Lactic Acid Calcium 7.2 L Phosphorus Magnesium Direct Bilirubin ALT Alkaline Phosphatase Troponin T C-Reactive Protein Total Protein Albumin Triglycerides Cholesterol LDL Cholesterol Direct HDL Cholesterol Urine WBC (Auto) Urine Creatinine Urine Total Protein Vancomycin Trough Rheumatoid Factor Complement C4 Miscellaneous Test Crossmatch 10/03/16 10/03/16 10/03/16 14:42 18:21 19:09 WBC RBC Hgb Hct MCV MCH MCHC RDW Plt Count Lymph % (Auto) [place] % (Auto) Lymph # [place] # Baso # Seg Neutrophils % Seg Neuts % (Manual) Lymphocytes % (Manual) Monocytes % (Manual) Eosinophils % (Manual) Basophils % (Manual) Nucleated RBC % Seg Neutrophils # Seg Neutrophils # Man Lymphocytes # (Manual) Monocytes # (Manual) Eosinophils # (Manual) PT INR Fibrinogen dRVVT Confirm Interp Factor V Activity POC ABG pH 7.499 H POC ABG pCO2 28.4 L POC ABG pO2 44 L Sodium Potassium Chloride Carbon Dioxide BUN Creatinine Glucose POC Glucose 64 L 205 H Lactic Acid Calcium Phosphorus Magnesium Direct Bilirubin ALT Alkaline Phosphatase Troponin T C-Reactive Protein Total Protein Albumin Triglycerides Cholesterol LDL Cholesterol Direct HDL Cholesterol Urine WBC (Auto) Urine Creatinine Urine Total Protein Vancomycin Trough Rheumatoid Factor Complement C4 Miscellaneous Test Crossmatch 10/03/16 10/04/16 10/04/16 23:33 04:18 06:30 WBC RBC 2.54 L Hgb 7.1 L Hct 21.7 L MCV MCH MCHC RDW 19.5 H Plt Count 76 L Lymph % (Auto) [place] % (Auto) Lymph # [place] # Baso # Seg Neutrophils % Seg Neuts % (Manual) 88.0 H Lymphocytes % (Manual) 6.0 L Monocytes % (Manual) Eosinophils % (Manual) Basophils % (Manual) Nucleated RBC % Seg Neutrophils # Seg Neutrophils # Man 8.8 H Lymphocytes # (Manual) 0.6 L Monocytes # (Manual) Eosinophils # (Manual) PT INR Fibrinogen dRVVT Confirm Interp Factor V Activity POC ABG pH 7.461 H POC ABG pCO2 33.6 L POC ABG pO2 211 H Sodium Potassium Chloride Carbon Dioxide BUN Creatinine Glucose POC Glucose 136 H Lactic Acid Calcium Phosphorus Magnesium Direct Bilirubin ALT Alkaline Phosphatase Troponin T C-Reactive Protein Total Protein Albumin Triglycerides Cholesterol LDL Cholesterol Direct HDL Cholesterol Urine WBC (Auto) Urine Creatinine Urine Total Protein Vancomycin Trough Rheumatoid Factor Complement C4 Miscellaneous Test Crossmatch 10/04/16 10/04/16 10/04/16 06:30 11:45 17:54 WBC RBC Hgb Hct MCV MCH MCHC RDW Plt Count Lymph % (Auto) [place] % (Auto) Lymph # [place] # Baso # Seg Neutrophils % Seg Neuts % (Manual) Lymphocytes % (Manual) Monocytes % (Manual) Eosinophils % (Manual) Basophils % (Manual) Nucleated RBC % Seg Neutrophils # Seg Neutrophils # Man Lymphocytes # (Manual) Monocytes # (Manual) Eosinophils # (Manual) PT INR Fibrinogen dRVVT Confirm Interp Factor V Activity POC ABG pH POC ABG pCO2 POC ABG pO2 Sodium 128 L Potassium Chloride 87.4 L Carbon Dioxide 20 L BUN 34 H Creatinine 2.9 H Glucose 127 H POC Glucose 158 H 160 H Lactic Acid Calcium 7.4 L Phosphorus Magnesium Direct Bilirubin ALT Alkaline Phosphatase Troponin T C-Reactive Protein Total Protein Albumin Triglycerides Cholesterol LDL Cholesterol Direct HDL Cholesterol Urine WBC (Auto) Urine Creatinine Urine Total Protein Vancomycin Trough Rheumatoid Factor Complement C4 Miscellaneous Test Crossmatch 10/04/16 10/05/16 10/05/16 23:25 04:30 05:00 WBC RBC 2.64 L Hgb 7.5 L Hct 22.6 L MCV MCH MCHC RDW 19.3 H Plt Count 80 L Lymph % (Auto) [place] % (Auto) Lymph # [place] # Baso # Seg Neutrophils % Seg Neuts % (Manual) Lymphocytes % (Manual) 12.0 L Monocytes % (Manual) Eosinophils % (Manual) Basophils % (Manual) Nucleated RBC % Seg Neutrophils # Seg Neutrophils # Man Lymphocytes # (Manual) Monocytes # (Manual) Eosinophils # (Manual) PT INR Fibrinogen dRVVT Confirm Interp Factor V Activity POC ABG pH 7.475 H POC ABG pCO2 33.3 L POC ABG pO2 140 H Sodium Potassium Chloride Carbon Dioxide BUN Creatinine Glucose POC Glucose 141 H Lactic Acid Calcium Phosphorus Magnesium Direct Bilirubin ALT Alkaline Phosphatase Troponin T C-Reactive Protein Total Protein Albumin Triglycerides Cholesterol LDL Cholesterol Direct HDL Cholesterol Urine WBC (Auto) Urine Creatinine Urine Total Protein Vancomycin Trough Rheumatoid Factor Complement C4 Miscellaneous Test Crossmatch 10/05/16 10/05/16 10/05/16 05:00 05:09 12:58 WBC RBC Hgb Hct MCV MCH MCHC RDW Plt Count Lymph % (Auto) [place] % (Auto) Lymph # [place] # Baso # Seg Neutrophils % Seg Neuts % (Manual) Lymphocytes % (Manual) Monocytes % (Manual) Eosinophils % (Manual) Basophils % (Manual) Nucleated RBC % Seg Neutrophils # Seg Neutrophils # Man Lymphocytes # (Manual) Monocytes # (Manual) Eosinophils # (Manual) PT INR Fibrinogen dRVVT Confirm Interp Factor V Activity POC ABG pH POC ABG pCO2 POC ABG pO2 Sodium 131 L Potassium Chloride 94.0 L Carbon Dioxide 20 L BUN 22 H Creatinine 2.0 H Glucose 123 H POC Glucose 166 H 179 H Lactic Acid Calcium 7.7 L Phosphorus 2.20 L D Magnesium Direct Bilirubin ALT Alkaline Phosphatase Troponin T C-Reactive Protein Total Protein Albumin Triglycerides Cholesterol LDL Cholesterol Direct HDL Cholesterol Urine WBC (Auto) Urine Creatinine Urine Total Protein Vancomycin Trough Rheumatoid Factor Complement C4 Miscellaneous Test Crossmatch 10/05/16 10/05/16 10/05/16 15:50 18:53 23:12 WBC RBC Hgb Hct MCV MCH MCHC RDW Plt Count Lymph % (Auto) [place] % (Auto) Lymph # [place] # Baso # Seg Neutrophils % Seg Neuts % (Manual) Lymphocytes % (Manual) Monocytes % (Manual) Eosinophils % (Manual) Basophils % (Manual) Nucleated RBC % Seg Neutrophils # Seg Neutrophils # Man Lymphocytes # (Manual) Monocytes # (Manual) Eosinophils # (Manual) PT INR Fibrinogen dRVVT Confirm Interp Factor V Activity POC ABG pH POC ABG pCO2 POC ABG pO2 Sodium Potassium Chloride Carbon Dioxide BUN Creatinine Glucose POC Glucose 150 H 164 H Lactic Acid Calcium Phosphorus Magnesium Direct Bilirubin ALT Alkaline Phosphatase Troponin T C-Reactive Protein Total Protein Albumin Triglycerides Cholesterol LDL Cholesterol Direct HDL Cholesterol Urine WBC (Auto) Urine Creatinine Urine Total Protein Vancomycin Trough Rheumatoid Factor Complement C4 Miscellaneous Test Crossmatch See Detail 10/06/16 10/06/16 10/06/16 03:50 03:50 04:53 WBC RBC 3.00 L Hgb 8.6 L Hct 25.8 L MCV MCH MCHC RDW 17.9 H Plt Count 65 L Lymph % (Auto) [place] % (Auto) Lymph # [place] # Baso # Seg Neutrophils % Seg Neuts % (Manual) 30.0 L Lymphocytes % (Manual) 5.0 L Monocytes % (Manual) Eosinophils % (Manual) Basophils % (Manual) Nucleated RBC % Seg Neutrophils # Seg Neutrophils # Man Lymphocytes # (Manual) 0.4 L Monocytes # (Manual) Eosinophils # (Manual) PT INR Fibrinogen dRVVT Confirm Interp Factor V Activity POC ABG pH 7.310 L POC ABG pCO2 49.0 H POC ABG pO2 Sodium 133 L Potassium Chloride 95.9 L Carbon Dioxide BUN 26 H Creatinine 2.0 H Glucose 116 H POC Glucose Lactic Acid Calcium 7.8 L Phosphorus Magnesium Direct Bilirubin ALT Alkaline Phosphatase Troponin T C-Reactive Protein Total Protein Albumin Triglycerides Cholesterol LDL Cholesterol Direct HDL Cholesterol Urine WBC (Auto) Urine Creatinine Urine Total Protein Vancomycin Trough Rheumatoid Factor Complement C4 Miscellaneous Test Crossmatch 10/06/16 10/06/16 10/06/16 05:23 11:52 18:34 WBC RBC Hgb Hct MCV MCH MCHC RDW Plt Count Lymph % (Auto) [place] % (Auto) Lymph # [place] # Baso # Seg Neutrophils % Seg Neuts % (Manual) Lymphocytes % (Manual) Monocytes % (Manual) Eosinophils % (Manual) Basophils % (Manual) Nucleated RBC % Seg Neutrophils # Seg Neutrophils # Man Lymphocytes # (Manual) Monocytes # (Manual) Eosinophils # (Manual) PT INR Fibrinogen dRVVT Confirm Interp Factor V Activity POC ABG pH POC ABG pCO2 POC ABG pO2 Sodium Potassium Chloride Carbon Dioxide BUN Creatinine Glucose POC Glucose 126 H 116 H 129 H Lactic Acid Calcium Phosphorus Magnesium Direct Bilirubin ALT Alkaline Phosphatase Troponin T C-Reactive Protein Total Protein Albumin Triglycerides Cholesterol LDL Cholesterol Direct HDL Cholesterol Urine WBC (Auto) Urine Creatinine Urine Total Protein Vancomycin Trough Rheumatoid Factor Complement C4 Miscellaneous Test Crossmatch 10/07/16 10/07/16 10/07/16 03:45 05:00 10:00 WBC 17.0 H RBC 2.68 L Hgb 7.3 L Hct 25.3 L MCV MCH 27 L MCHC 29 L RDW 19.6 H Plt Count 74 L Lymph % (Auto) [place] % (Auto) Lymph # [place] # Baso # Seg Neutrophils % Seg Neuts % (Manual) Lymphocytes % (Manual) 12.0 L Monocytes % (Manual) Eosinophils % (Manual) Basophils % (Manual) Nucleated RBC % 4.0 H Seg Neutrophils # Seg Neutrophils # Man 10.7 H Lymphocytes # (Manual) Monocytes # (Manual) Eosinophils # (Manual) PT INR Fibrinogen dRVVT Confirm Interp Factor V Activity POC ABG pH POC ABG pCO2 POC ABG pO2 Sodium 130 L Potassium 3.2 L Chloride 93.9 L Carbon Dioxide 20 L BUN 44 H Creatinine 2.7 H Glucose 129 H POC Glucose Lactic Acid Calcium 7.4 L Phosphorus Magnesium Direct Bilirubin ALT 6 L Alkaline Phosphatase 195 H Troponin T C-Reactive Protein Total Protein 4.9 L Albumin 1.0 L Triglycerides Cholesterol LDL Cholesterol Direct HDL Cholesterol Urine WBC (Auto) Urine Creatinine Urine Total Protein Vancomycin Trough Rheumatoid Factor Complement C4 Miscellaneous Test Flexitest 1 H Crossmatch 10/07/16 10/07/16 10/07/16 10:00 11:24 18:10 WBC RBC Hgb Hct MCV MCH MCHC RDW Plt Count Lymph % (Auto) [place] % (Auto) Lymph # [place] # Baso # Seg Neutrophils % Seg Neuts % (Manual) Lymphocytes % (Manual) Monocytes % (Manual) Eosinophils % (Manual) Basophils % (Manual) Nucleated RBC % Seg Neutrophils # Seg Neutrophils # Man Lymphocytes # (Manual) Monocytes # (Manual) Eosinophils # (Manual) PT INR Fibrinogen dRVVT Confirm Interp Factor V Activity POC ABG pH POC ABG pCO2 POC ABG pO2 Sodium Potassium Chloride Carbon Dioxide BUN Creatinine Glucose POC Glucose 116 H 130 H Lactic Acid Calcium Phosphorus Magnesium Direct Bilirubin ALT Alkaline Phosphatase Troponin T C-Reactive Protein 19.40 H Total Protein Albumin Triglycerides Cholesterol LDL Cholesterol Direct HDL Cholesterol Urine WBC (Auto) Urine Creatinine Urine Total Protein Vancomycin Trough Rheumatoid Factor Complement C4 Miscellaneous Test Crossmatch 10/07/16 10/08/16 10/08/16 18:30 00:00 04:00 WBC RBC Hgb Hct MCV MCH MCHC RDW Plt Count Lymph % (Auto) [place] % (Auto) Lymph # [place] # Baso # Seg Neutrophils % Seg Neuts % (Manual) Lymphocytes % (Manual) Monocytes % (Manual) Eosinophils % (Manual) Basophils % (Manual) Nucleated RBC % Seg Neutrophils # Seg Neutrophils # Man Lymphocytes # (Manual) Monocytes # (Manual) Eosinophils # (Manual) PT INR Fibrinogen dRVVT Confirm Interp Factor V Activity POC ABG pH POC ABG pCO2 POC ABG pO2 Sodium 132 L Potassium 3.3 L Chloride 93.6 L Carbon Dioxide 17 L BUN 59 H Creatinine 2.7 H Glucose 121 H POC Glucose 122 H Lactic Acid Calcium 7.6 L Phosphorus Magnesium Direct Bilirubin ALT Alkaline Phosphatase Troponin T C-Reactive Protein Total Protein Albumin Triglycerides Cholesterol LDL Cholesterol Direct HDL Cholesterol Urine WBC (Auto) > 182.0 H Urine Creatinine Urine Total Protein Vancomycin Trough Rheumatoid Factor Complement C4 Miscellaneous Test Crossmatch 10/08/16 10/08/16 10/08/16 04:30 05:30 11:51 WBC RBC 5.15 H Hgb 14.4 H D Hct 44.5 H D MCV MCH MCHC RDW 19.5 H Plt Count 56 L Lymph % (Auto) [place] % (Auto) Lymph # [place] # Baso # Seg Neutrophils % Seg Neuts % (Manual) 24.0 L Lymphocytes % (Manual) 8.0 L Monocytes % (Manual) Eosinophils % (Manual) Basophils % (Manual) Nucleated RBC % 9.0 H Seg Neutrophils # Seg Neutrophils # Man Lymphocytes # (Manual) 0.7 L Monocytes # (Manual) Eosinophils # (Manual) PT INR Fibrinogen dRVVT Confirm Interp Factor V Activity POC ABG pH POC ABG pCO2 POC ABG pO2 Sodium Potassium Chloride Carbon Dioxide BUN Creatinine Glucose POC Glucose 125 H 150 H Lactic Acid Calcium Phosphorus Magnesium Direct Bilirubin ALT Alkaline Phosphatase Troponin T C-Reactive Protein Total Protein Albumin Triglycerides Cholesterol LDL Cholesterol Direct HDL Cholesterol Urine WBC (Auto) Urine Creatinine Urine Total Protein Vancomycin Trough Rheumatoid Factor Complement C4 Miscellaneous Test Crossmatch 10/08/16 10/08/16 10/08/16 12:49 17:07 19:30 WBC RBC Hgb 7.1 L D Hct 22.4 L D MCV MCH MCHC RDW Plt Count Lymph % (Auto) [place] % (Auto) Lymph # [place] # Baso # Seg Neutrophils % Seg Neuts % (Manual) Lymphocytes % (Manual) Monocytes % (Manual) Eosinophils % (Manual) Basophils % (Manual) Nucleated RBC % Seg Neutrophils # Seg Neutrophils # Man Lymphocytes # (Manual) Monocytes # (Manual) Eosinophils # (Manual) PT INR Fibrinogen dRVVT Confirm Interp Factor V Activity POC ABG pH POC ABG pCO2 28.2 L POC ABG pO2 111 H Sodium Potassium Chloride Carbon Dioxide BUN Creatinine Glucose POC Glucose 145 H Lactic Acid Calcium Phosphorus Magnesium Direct Bilirubin ALT Alkaline Phosphatase Troponin T C-Reactive Protein Total Protein Albumin Triglycerides Cholesterol LDL Cholesterol Direct HDL Cholesterol Urine WBC (Auto) Urine Creatinine Urine Total Protein Vancomycin Trough Rheumatoid Factor Complement C4 Miscellaneous Test Crossmatch 10/08/16 10/09/16 10/09/16 19:30 03:45 03:45 WBC 12.6 H RBC 2.36 L Hgb 6.7 L Hct 21.1 L MCV MCH MCHC RDW 19.5 H Plt Count 75 L Lymph % (Auto) [place] % (Auto) Lymph # [place] # Baso # Seg Neutrophils % Seg Neuts % (Manual) Lymphocytes % (Manual) Monocytes % (Manual) 10.0 H Eosinophils % (Manual) Basophils % (Manual) Nucleated RBC % 3.0 H Seg Neutrophils # Seg Neutrophils # Man Lymphocytes # (Manual) Monocytes # (Manual) 1.3 H Eosinophils # (Manual) PT 18.0 H INR 1.41 H Fibrinogen dRVVT Confirm Interp Factor V Activity POC ABG pH POC ABG pCO2 POC ABG pO2 Sodium 135 L Potassium Chloride Carbon Dioxide 17 L BUN 81 H Creatinine 3.2 H Glucose 109 H POC Glucose Lactic Acid Calcium 7.4 L Phosphorus 4.60 H D Magnesium Direct Bilirubin ALT Alkaline Phosphatase Troponin T C-Reactive Protein Total Protein Albumin Triglycerides Cholesterol LDL Cholesterol Direct HDL Cholesterol Urine WBC (Auto) Urine Creatinine Urine Total Protein Vancomycin Trough Rheumatoid Factor Complement C4 Miscellaneous Test Crossmatch 10/09/16 10/09/16 10/09/16 03:45 05:14 07:20 WBC RBC Hgb Hct MCV MCH MCHC RDW Plt Count Lymph % (Auto) [place] % (Auto) Lymph # [place] # Baso # Seg Neutrophils % Seg Neuts % (Manual) Lymphocytes % (Manual) Monocytes % (Manual) Eosinophils % (Manual) Basophils % (Manual) Nucleated RBC % Seg Neutrophils # Seg Neutrophils # Man Lymphocytes # (Manual) Monocytes # (Manual) Eosinophils # (Manual) PT 19.0 H INR 1.51 H Fibrinogen dRVVT Confirm Interp Factor V Activity POC ABG pH POC ABG pCO2 POC ABG pO2 Sodium Potassium Chloride Carbon Dioxide BUN Creatinine Glucose POC Glucose 151 H Lactic Acid Calcium Phosphorus Magnesium Direct Bilirubin ALT Alkaline Phosphatase Troponin T C-Reactive Protein Total Protein Albumin Triglycerides Cholesterol LDL Cholesterol Direct HDL Cholesterol Urine WBC (Auto) Urine Creatinine Urine Total Protein Vancomycin Trough Rheumatoid Factor Complement C4 Miscellaneous Test Crossmatch See Detail 10/09/16 10/09/16 10/09/16 11:46 16:20 16:43 WBC RBC Hgb 7.2 L Hct 22.2 L MCV MCH MCHC RDW Plt Count Lymph % (Auto) [place] % (Auto) Lymph # [place] # Baso # Seg Neutrophils % Seg Neuts % (Manual) Lymphocytes % (Manual) Monocytes % (Manual) Eosinophils % (Manual) Basophils % (Manual) Nucleated RBC % Seg Neutrophils # Seg Neutrophils # Man Lymphocytes # (Manual) Monocytes # (Manual) Eosinophils # (Manual) PT INR Fibrinogen dRVVT Confirm Interp Factor V Activity POC ABG pH POC ABG pCO2 POC ABG pO2 Sodium Potassium Chloride Carbon Dioxide BUN Creatinine Glucose POC Glucose 133 H 141 H Lactic Acid Calcium Phosphorus Magnesium Direct Bilirubin ALT Alkaline Phosphatase Troponin T C-Reactive Protein Total Protein Albumin Triglycerides Cholesterol LDL Cholesterol Direct HDL Cholesterol Urine WBC (Auto) Urine Creatinine Urine Total Protein Vancomycin Trough Rheumatoid Factor Complement C4 Miscellaneous Test Crossmatch 10/10/16 10/10/16 10/10/16 05:00 05:00 11:19 WBC 18.5 H RBC 2.19 L Hgb 6.4 L Hct 19.6 L* MCV MCH MCHC RDW 19.3 H Plt Count 93 L Lymph % (Auto) [place] % (Auto) Lymph # [place] # Baso # Seg Neutrophils % Seg Neuts % (Manual) Lymphocytes % (Manual) 10.0 L Monocytes % (Manual) Eosinophils % (Manual) Basophils % (Manual) Nucleated RBC % 4.0 H Seg Neutrophils # Seg Neutrophils # Man 11.3 H Lymphocytes # (Manual) Monocytes # (Manual) Eosinophils # (Manual) PT INR Fibrinogen dRVVT Confirm Interp Factor V Activity POC ABG pH POC ABG pCO2 POC ABG pO2 Sodium Potassium 5.7 H D Chloride Carbon Dioxide 16 L BUN 94 H Creatinine 3.1 H Glucose 131 H POC Glucose 153 H Lactic Acid Calcium 8.2 L Phosphorus 5.10 H Magnesium 2.40 H Direct Bilirubin 0.3 H ALT < 5 L Alkaline Phosphatase 319 H Troponin T C-Reactive Protein Total Protein 5.1 L Albumin 1.0 L Triglycerides Cholesterol LDL Cholesterol Direct HDL Cholesterol Urine WBC (Auto) Urine Creatinine Urine Total Protein Vancomycin Trough Rheumatoid Factor Complement C4 Miscellaneous Test Crossmatch 10/10/16 10/10/16 10/11/16 17:50 23:30 04:15 WBC RBC Hgb Hct MCV MCH MCHC RDW Plt Count Lymph % (Auto) [place] % (Auto) Lymph # [place] # Baso # Seg Neutrophils % Seg Neuts % (Manual) Lymphocytes % (Manual) Monocytes % (Manual) Eosinophils % (Manual) Basophils % (Manual) Nucleated RBC % Seg Neutrophils # Seg Neutrophils # Man Lymphocytes # (Manual) Monocytes # (Manual) Eosinophils # (Manual) PT INR Fibrinogen dRVVT Confirm Interp Factor V Activity POC ABG pH POC ABG pCO2 POC ABG pO2 Sodium Potassium Chloride 96.4 L Carbon Dioxide 21 L BUN 57 H Creatinine 2.1 H Glucose 151 H POC Glucose 146 H 141 H Lactic Acid Calcium 8.3 L Phosphorus Magnesium Direct Bilirubin ALT Alkaline Phosphatase Troponin T C-Reactive Protein Total Protein Albumin Triglycerides Cholesterol LDL Cholesterol Direct HDL Cholesterol Urine WBC (Auto) Urine Creatinine Urine Total Protein Vancomycin Trough Rheumatoid Factor Complement C4 Miscellaneous Test Crossmatch 10/11/16 10/11/16 10/11/16 04:15 04:15 05:30 WBC 28.3 H RBC 3.12 L Hgb 9.3 L Hct 28.7 L D MCV MCH MCHC RDW 17.7 H Plt Count 128 L Lymph % (Auto) [place] % (Auto) Lymph # [place] # Baso # Seg Neutrophils % Seg Neuts % (Manual) Lymphocytes % (Manual) Monocytes % (Manual) Eosinophils % (Manual) Basophils % (Manual) Nucleated RBC % Seg Neutrophils # Seg Neutrophils # Man Lymphocytes # (Manual) Monocytes # (Manual) Eosinophils # (Manual) PT INR Fibrinogen dRVVT Confirm Interp Factor V Activity POC ABG pH POC ABG pCO2 POC ABG pO2 Sodium Potassium Chloride Carbon Dioxide BUN Creatinine Glucose POC Glucose 167 H Lactic Acid Calcium Phosphorus Magnesium Direct Bilirubin ALT Alkaline Phosphatase Troponin T C-Reactive Protein 15.80 H Total Protein Albumin Triglycerides Cholesterol LDL Cholesterol Direct HDL Cholesterol Urine WBC (Auto) Urine Creatinine Urine Total Protein Vancomycin Trough Rheumatoid Factor Complement C4 Miscellaneous Test Crossmatch 10/11/16 10/11/16 10/11/16 11:40 15:49 23:57 WBC RBC Hgb Hct MCV MCH MCHC RDW Plt Count Lymph % (Auto) [place] % (Auto) Lymph # [place] # Baso # Seg Neutrophils % Seg Neuts % (Manual) Lymphocytes % (Manual) Monocytes % (Manual) Eosinophils % (Manual) Basophils % (Manual) Nucleated RBC % Seg Neutrophils # Seg Neutrophils # Man Lymphocytes # (Manual) Monocytes # (Manual) Eosinophils # (Manual) PT INR Fibrinogen dRVVT Confirm Interp Factor V Activity POC ABG pH POC ABG pCO2 POC ABG pO2 Sodium Potassium Chloride Carbon Dioxide BUN Creatinine Glucose POC Glucose 139 H 168 H 161 H Lactic Acid Calcium Phosphorus Magnesium Direct Bilirubin ALT Alkaline Phosphatase Troponin T C-Reactive Protein Total Protein Albumin Triglycerides Cholesterol LDL Cholesterol Direct HDL Cholesterol Urine WBC (Auto) Urine Creatinine Urine Total Protein Vancomycin Trough Rheumatoid Factor Complement C4 Miscellaneous Test Crossmatch 10/12/16 10/12/16 10/12/16 04:40 04:40 05:44 WBC 22.5 H RBC 2.88 L Hgb 8.8 L Hct 26.8 L MCV MCH MCHC RDW 17.8 H Plt Count Lymph % (Auto) [place] % (Auto) Lymph # [place] # Baso # Seg Neutrophils % Seg Neuts % (Manual) Lymphocytes % (Manual) Monocytes % (Manual) Eosinophils % (Manual) Basophils % (Manual) Nucleated RBC % Seg Neutrophils # Seg Neutrophils # Man Lymphocytes # (Manual) Monocytes # (Manual) Eosinophils # (Manual) PT INR Fibrinogen dRVVT Confirm Interp Factor V Activity POC ABG pH POC ABG pCO2 POC ABG pO2 Sodium 134 L Potassium Chloride 93.0 L Carbon Dioxide BUN 74 H Creatinine 2.5 H Glucose 137 H POC Glucose 158 H Lactic Acid Calcium 8.2 L Phosphorus Magnesium Direct Bilirubin ALT Alkaline Phosphatase Troponin T C-Reactive Protein Total Protein Albumin Triglycerides Cholesterol LDL Cholesterol Direct HDL Cholesterol Urine WBC (Auto) Urine Creatinine Urine Total Protein Vancomycin Trough Rheumatoid Factor Complement C4 Miscellaneous Test Crossmatch 10/12/16 10/12/16 10/12/16 12:27 18:18 23:46 WBC RBC Hgb Hct MCV MCH MCHC RDW Plt Count Lymph % (Auto) [place] % (Auto) Lymph # [place] # Baso # Seg Neutrophils % Seg Neuts % (Manual) Lymphocytes % (Manual) Monocytes % (Manual) Eosinophils % (Manual) Basophils % (Manual) Nucleated RBC % Seg Neutrophils # Seg Neutrophils # Man Lymphocytes # (Manual) Monocytes # (Manual) Eosinophils # (Manual) PT INR Fibrinogen dRVVT Confirm Interp Factor V Activity POC ABG pH POC ABG pCO2 POC ABG pO2 Sodium Potassium Chloride Carbon Dioxide BUN Creatinine Glucose POC Glucose 153 H 140 H 150 H Lactic Acid Calcium Phosphorus Magnesium Direct Bilirubin ALT Alkaline Phosphatase Troponin T C-Reactive Protein Total Protein Albumin Triglycerides Cholesterol LDL Cholesterol Direct HDL Cholesterol Urine WBC (Auto) Urine Creatinine Urine Total Protein Vancomycin Trough Rheumatoid Factor Complement C4 Miscellaneous Test Crossmatch 10/13/16 10/13/16 10/13/16 06:22 09:20 12:29 WBC RBC Hgb Hct MCV MCH MCHC RDW Plt Count Lymph % (Auto) [place] % (Auto) Lymph # [place] # Baso # Seg Neutrophils % Seg Neuts % (Manual) Lymphocytes % (Manual) Monocytes % (Manual) Eosinophils % (Manual) Basophils % (Manual) Nucleated RBC % Seg Neutrophils # Seg Neutrophils # Man Lymphocytes # (Manual) Monocytes # (Manual) Eosinophils # (Manual) PT INR Fibrinogen dRVVT Confirm Interp Factor V Activity POC ABG pH POC ABG pCO2 POC ABG pO2 Sodium Potassium Chloride Carbon Dioxide BUN Creatinine Glucose POC Glucose 165 H 193 H Lactic Acid Calcium Phosphorus Magnesium Direct Bilirubin ALT Alkaline Phosphatase Troponin T C-Reactive Protein Total Protein Albumin Triglycerides Cholesterol LDL Cholesterol Direct HDL Cholesterol Urine WBC (Auto) Urine Creatinine Urine Total Protein Vancomycin Trough Rheumatoid Factor Complement C4 Miscellaneous Test Flexitest 1 H Crossmatch 10/13/16 10/13/16 10/13/16 18:09 Unknown Unknown WBC 23.4 H RBC 2.83 L Hgb 8.7 L Hct 26.1 L MCV MCH MCHC RDW 18.1 H Plt Count Lymph % (Auto) [place] % (Auto) Lymph # [place] # Baso # Seg Neutrophils % Seg Neuts % (Manual) Lymphocytes % (Manual) Monocytes % (Manual) Eosinophils % (Manual) Basophils % (Manual) Nucleated RBC % Seg Neutrophils # Seg Neutrophils # Man Lymphocytes # (Manual) Monocytes # (Manual) Eosinophils # (Manual) PT INR Fibrinogen dRVVT Confirm Interp Factor V Activity POC ABG pH POC ABG pCO2 POC ABG pO2 Sodium Potassium Chloride 95.8 L Carbon Dioxide BUN 82 H Creatinine 2.6 H Glucose 152 H POC Glucose 166 H Lactic Acid Calcium Phosphorus Magnesium Direct Bilirubin ALT Alkaline Phosphatase Troponin T C-Reactive Protein Total Protein Albumin Triglycerides Cholesterol LDL Cholesterol Direct HDL Cholesterol Urine WBC (Auto) Urine Creatinine Urine Total Protein Vancomycin Trough Rheumatoid Factor Complement C4 Miscellaneous Test Crossmatch 10/14/16 10/14/16 10/14/16 05:38 06:35 08:10 WBC 20.7 H RBC 2.81 L Hgb 8.4 L Hct 27.2 L MCV MCH MCHC RDW 19.4 H Plt Count Lymph % (Auto) [place] % (Auto) Lymph # [place] # Baso # Seg Neutrophils % Seg Neuts % (Manual) Lymphocytes % (Manual) Monocytes % (Manual) Eosinophils % (Manual) Basophils % (Manual) Nucleated RBC % Seg Neutrophils # Seg Neutrophils # Man Lymphocytes # (Manual) Monocytes # (Manual) Eosinophils # (Manual) PT INR Fibrinogen dRVVT Confirm Interp Factor V Activity POC ABG pH POC ABG pCO2 POC ABG pO2 Sodium Potassium Chloride Carbon Dioxide BUN 58 H Creatinine 1.9 H Glucose 169 H POC Glucose 195 H Lactic Acid Calcium Phosphorus Magnesium Direct Bilirubin ALT Alkaline Phosphatase Troponin T C-Reactive Protein Total Protein Albumin Triglycerides Cholesterol LDL Cholesterol Direct HDL Cholesterol Urine WBC (Auto) Urine Creatinine Urine Total Protein Vancomycin Trough Rheumatoid Factor Complement C4 Miscellaneous Test Crossmatch 10/14/16 10/14/16 10/14/16 11:44 17:13 23:28 WBC RBC Hgb Hct MCV MCH MCHC RDW Plt Count Lymph % (Auto) [place] % (Auto) Lymph # [place] # Baso # Seg Neutrophils % Seg Neuts % (Manual) Lymphocytes % (Manual) Monocytes % (Manual) Eosinophils % (Manual) Basophils % (Manual) Nucleated RBC % Seg Neutrophils # Seg Neutrophils # Man Lymphocytes # (Manual) Monocytes # (Manual) Eosinophils # (Manual) PT INR Fibrinogen dRVVT Confirm Interp Factor V Activity POC ABG pH POC ABG pCO2 POC ABG pO2 Sodium Potassium Chloride Carbon Dioxide BUN Creatinine Glucose POC Glucose 174 H 121 H 151 H Lactic Acid Calcium Phosphorus Magnesium Direct Bilirubin ALT Alkaline Phosphatase Troponin T C-Reactive Protein Total Protein Albumin Triglycerides Cholesterol LDL Cholesterol Direct HDL Cholesterol Urine WBC (Auto) Urine Creatinine Urine Total Protein Vancomycin Trough Rheumatoid Factor Complement C4 Miscellaneous Test Crossmatch 10/15/16 10/15/16 10/15/16 05:06 12:26 17:48 WBC RBC Hgb Hct MCV MCH MCHC RDW Plt Count Lymph % (Auto) [place] % (Auto) Lymph # [place] # Baso # Seg Neutrophils % Seg Neuts % (Manual) Lymphocytes % (Manual) Monocytes % (Manual) Eosinophils % (Manual) Basophils % (Manual) Nucleated RBC % Seg Neutrophils # Seg Neutrophils # Man Lymphocytes # (Manual) Monocytes # (Manual) Eosinophils # (Manual) PT INR Fibrinogen dRVVT Confirm Interp Factor V Activity POC ABG pH POC ABG pCO2 POC ABG pO2 Sodium Potassium Chloride Carbon Dioxide BUN Creatinine Glucose POC Glucose 151 H 149 H 153 H Lactic Acid Calcium Phosphorus Magnesium Direct Bilirubin ALT Alkaline Phosphatase Troponin T C-Reactive Protein Total Protein Albumin Triglycerides Cholesterol LDL Cholesterol Direct HDL Cholesterol Urine WBC (Auto) Urine Creatinine Urine Total Protein Vancomycin Trough Rheumatoid Factor Complement C4 Miscellaneous Test Crossmatch 10/15/16 10/15/16 10/16/16 Unknown Unknown 00:02 WBC 23.4 H RBC 2.78 L Hgb 8.5 L Hct 25.7 L MCV MCH MCHC RDW 18.7 H Plt Count Lymph % (Auto) [place] % (Auto) Lymph # [place] # Baso # Seg Neutrophils % Seg Neuts % (Manual) Lymphocytes % (Manual) Monocytes % (Manual) Eosinophils % (Manual) Basophils % (Manual) Nucleated RBC % Seg Neutrophils # Seg Neutrophils # Man Lymphocytes # (Manual) Monocytes # (Manual) Eosinophils # (Manual) PT INR Fibrinogen dRVVT Confirm Interp Factor V Activity POC ABG pH POC ABG pCO2 POC ABG pO2 Sodium Potassium Chloride Carbon Dioxide BUN 73 H Creatinine 2.3 H Glucose 120 H POC Glucose 137 H Lactic Acid Calcium Phosphorus Magnesium Direct Bilirubin ALT Alkaline Phosphatase Troponin T C-Reactive Protein Total Protein Albumin Triglycerides Cholesterol LDL Cholesterol Direct HDL Cholesterol Urine WBC (Auto) Urine Creatinine Urine Total Protein Vancomycin Trough Rheumatoid Factor Complement C4 Miscellaneous Test Crossmatch 10/16/16 10/16/16 10/16/16 05:44 06:25 06:25 WBC 22.5 H RBC 2.76 L Hgb 8.3 L Hct 25.2 L MCV MCH MCHC RDW 18.3 H Plt Count Lymph % (Auto) [place] % (Auto) Lymph # [place] # Baso # Seg Neutrophils % Seg Neuts % (Manual) Lymphocytes % (Manual) Monocytes % (Manual) Eosinophils % (Manual) Basophils % (Manual) Nucleated RBC % Seg Neutrophils # Seg Neutrophils # Man Lymphocytes # (Manual) Monocytes # (Manual) Eosinophils # (Manual) PT INR Fibrinogen dRVVT Confirm Interp Factor V Activity POC ABG pH POC ABG pCO2 POC ABG pO2 Sodium Potassium Chloride Carbon Dioxide BUN 92 H Creatinine 3.0 H Glucose 138 H POC Glucose 110 H Lactic Acid Calcium Phosphorus Magnesium Direct Bilirubin ALT Alkaline Phosphatase Troponin T C-Reactive Protein Total Protein Albumin Triglycerides Cholesterol LDL Cholesterol Direct HDL Cholesterol Urine WBC (Auto) Urine Creatinine Urine Total Protein Vancomycin Trough Rheumatoid Factor Complement C4 Miscellaneous Test Crossmatch 10/16/16 10/16/16 10/16/16 11:27 11:48 17:36 WBC RBC Hgb Hct MCV MCH MCHC RDW Plt Count Lymph % (Auto) [place] % (Auto) Lymph # [place] # Baso # Seg Neutrophils % Seg Neuts % (Manual) Lymphocytes % (Manual) Monocytes % (Manual) Eosinophils % (Manual) Basophils % (Manual) Nucleated RBC % Seg Neutrophils # Seg Neutrophils # Man Lymphocytes # (Manual) Monocytes # (Manual) Eosinophils # (Manual) PT INR Fibrinogen dRVVT Confirm Interp Factor V Activity POC ABG pH 7.582 H POC ABG pCO2 27.4 L POC ABG pO2 110 H Sodium Potassium Chloride Carbon Dioxide BUN Creatinine Glucose POC Glucose 121 H 133 H Lactic Acid Calcium Phosphorus Magnesium Direct Bilirubin ALT Alkaline Phosphatase Troponin T C-Reactive Protein Total Protein Albumin Triglycerides Cholesterol LDL Cholesterol Direct HDL Cholesterol Urine WBC (Auto) Urine Creatinine Urine Total Protein Vancomycin Trough Rheumatoid Factor Complement C4 Miscellaneous Test Crossmatch 10/16/16 10/17/16 10/17/16 20:48 04:24 04:24 WBC 21.4 H RBC 2.72 L Hgb 8.0 L Hct 25.2 L MCV MCH MCHC RDW 18.0 H Plt Count Lymph % (Auto) [place] % (Auto) Lymph # [place] # Baso # Seg Neutrophils % Seg Neuts % (Manual) Lymphocytes % (Manual) Monocytes % (Manual) Eosinophils % (Manual) Basophils % (Manual) Nucleated RBC % Seg Neutrophils # Seg Neutrophils # Man Lymphocytes # (Manual) Monocytes # (Manual) Eosinophils # (Manual) PT INR Fibrinogen dRVVT Confirm Interp Factor V Activity POC ABG pH 7.561 H POC ABG pCO2 24.4 L POC ABG pO2 77 L Sodium 148 H Potassium Chloride Carbon Dioxide BUN 104 H Creatinine 3.0 H Glucose 149 H POC Glucose Lactic Acid Calcium Phosphorus Magnesium Direct Bilirubin ALT Alkaline Phosphatase 138 H Troponin T C-Reactive Protein Total Protein 6.2 L Albumin 1.5 L Triglycerides Cholesterol LDL Cholesterol Direct HDL Cholesterol Urine WBC (Auto) Urine Creatinine Urine Total Protein Vancomycin Trough Rheumatoid Factor Complement C4 Miscellaneous Test Crossmatch 10/17/16 10/17/16 10/17/16 06:02 12:17 17:14 WBC RBC Hgb Hct MCV MCH MCHC RDW Plt Count Lymph % (Auto) [place] % (Auto) Lymph # [place] # Baso # Seg Neutrophils % Seg Neuts % (Manual) Lymphocytes % (Manual) Monocytes % (Manual) Eosinophils % (Manual) Basophils % (Manual) Nucleated RBC % Seg Neutrophils # Seg Neutrophils # Man Lymphocytes # (Manual) Monocytes # (Manual) Eosinophils # (Manual) PT INR Fibrinogen dRVVT Confirm Interp Factor V Activity POC ABG pH POC ABG pCO2 POC ABG pO2 Sodium Potassium Chloride Carbon Dioxide BUN Creatinine Glucose POC Glucose 170 H 167 H 126 H Lactic Acid Calcium Phosphorus Magnesium Direct Bilirubin ALT Alkaline Phosphatase Troponin T C-Reactive Protein Total Protein Albumin Triglycerides Cholesterol LDL Cholesterol Direct HDL Cholesterol Urine WBC (Auto) Urine Creatinine Urine Total Protein Vancomycin Trough Rheumatoid Factor Complement C4 Miscellaneous Test Crossmatch 10/17/16 10/18/16 10/18/16 23:17 04:00 04:00 WBC 20.7 H RBC 2.47 L Hgb 7.4 L Hct 22.9 L MCV MCH MCHC RDW 17.5 H Plt Count Lymph % (Auto) [place] % (Auto) Lymph # [place] # Baso # Seg Neutrophils % Seg Neuts % (Manual) Lymphocytes % (Manual) Monocytes % (Manual) Eosinophils % (Manual) Basophils % (Manual) Nucleated RBC % Seg Neutrophils # Seg Neutrophils # Man Lymphocytes # (Manual) Monocytes # (Manual) Eosinophils # (Manual) PT INR Fibrinogen dRVVT Confirm Interp Factor V Activity POC ABG pH POC ABG pCO2 POC ABG pO2 Sodium 149 H Potassium Chloride 107.9 H Carbon Dioxide 20 L BUN 117 H Creatinine 3.2 H Glucose 119 H POC Glucose 121 H Lactic Acid Calcium Phosphorus Magnesium Direct Bilirubin ALT Alkaline Phosphatase Troponin T C-Reactive Protein Total Protein Albumin Triglycerides Cholesterol LDL Cholesterol Direct HDL Cholesterol Urine WBC (Auto) Urine Creatinine Urine Total Protein Vancomycin Trough Rheumatoid Factor Complement C4 Miscellaneous Test Crossmatch 10/18/16 10/18/16 10/18/16 05:23 10:46 17:30 WBC RBC Hgb Hct MCV MCH MCHC RDW Plt Count Lymph % (Auto) [place] % (Auto) Lymph # [place] # Baso # Seg Neutrophils % Seg Neuts % (Manual) Lymphocytes % (Manual) Monocytes % (Manual) Eosinophils % (Manual) Basophils % (Manual) Nucleated RBC % Seg Neutrophils # Seg Neutrophils # Man Lymphocytes # (Manual) Monocytes # (Manual) Eosinophils # (Manual) PT INR Fibrinogen dRVVT Confirm Interp Factor V Activity POC ABG pH POC ABG pCO2 POC ABG pO2 Sodium Potassium Chloride Carbon Dioxide BUN Creatinine Glucose POC Glucose 119 H 155 H 124 H Lactic Acid Calcium Phosphorus Magnesium Direct Bilirubin ALT Alkaline Phosphatase Troponin T C-Reactive Protein Total Protein Albumin Triglycerides Cholesterol LDL Cholesterol Direct HDL Cholesterol Urine WBC (Auto) Urine Creatinine Urine Total Protein Vancomycin Trough Rheumatoid Factor Complement C4 Miscellaneous Test Crossmatch 10/19/16 10/19/16 10/19/16 04:00 04:00 05:25 WBC 17.4 H RBC 2.54 L Hgb 7.7 L Hct 23.6 L MCV MCH MCHC RDW 17.3 H Plt Count Lymph % (Auto) [place] % (Auto) Lymph # [place] # Baso # Seg Neutrophils % Seg Neuts % (Manual) Lymphocytes % (Manual) Monocytes % (Manual) Eosinophils % (Manual) Basophils % (Manual) Nucleated RBC % Seg Neutrophils # Seg Neutrophils # Man Lymphocytes # (Manual) Monocytes # (Manual) Eosinophils # (Manual) PT INR Fibrinogen dRVVT Confirm Interp Factor V Activity POC ABG pH POC ABG pCO2 POC ABG pO2 Sodium Potassium Chloride Carbon Dioxide BUN 72 H Creatinine 2.1 H Glucose 116 H POC Glucose 119 H Lactic Acid Calcium Phosphorus Magnesium Direct Bilirubin ALT Alkaline Phosphatase Troponin T C-Reactive Protein Total Protein Albumin Triglycerides Cholesterol LDL Cholesterol Direct HDL Cholesterol Urine WBC (Auto) Urine Creatinine Urine Total Protein Vancomycin Trough Rheumatoid Factor Complement C4 Miscellaneous Test Crossmatch 10/19/16 10/19/16 10/20/16 11:46 23:59 06:00 WBC RBC Hgb Hct MCV MCH MCHC RDW Plt Count Lymph % (Auto) [place] % (Auto) Lymph # [place] # Baso # Seg Neutrophils % Seg Neuts % (Manual) Lymphocytes % (Manual) Monocytes % (Manual) Eosinophils % (Manual) Basophils % (Manual) Nucleated RBC % Seg Neutrophils # Seg Neutrophils # Man Lymphocytes # (Manual) Monocytes # (Manual) Eosinophils # (Manual) PT INR Fibrinogen dRVVT Confirm Interp Factor V Activity POC ABG pH POC ABG pCO2 POC ABG pO2 Sodium Potassium Chloride Carbon Dioxide 17 L BUN 94 H Creatinine 2.7 H Glucose POC Glucose 116 H 117 H Lactic Acid Calcium Phosphorus Magnesium Direct Bilirubin ALT Alkaline Phosphatase Troponin T C-Reactive Protein Total Protein Albumin Triglycerides Cholesterol LDL Cholesterol Direct HDL Cholesterol Urine WBC (Auto) Urine Creatinine Urine Total Protein Vancomycin Trough Rheumatoid Factor Complement C4 Miscellaneous Test Crossmatch 10/20/16 10/20/16 10/20/16 06:00 11:49 18:36 WBC 19.7 H RBC 2.51 L Hgb 7.7 L Hct 23.5 L MCV MCH MCHC RDW 17.5 H Plt Count Lymph % (Auto) [place] % (Auto) Lymph # [place] # Baso # Seg Neutrophils % Seg Neuts % (Manual) Lymphocytes % (Manual) Monocytes % (Manual) Eosinophils % (Manual) Basophils % (Manual) Nucleated RBC % Seg Neutrophils # Seg Neutrophils # Man Lymphocytes # (Manual) Monocytes # (Manual) Eosinophils # (Manual) PT INR Fibrinogen dRVVT Confirm Interp Factor V Activity POC ABG pH POC ABG pCO2 POC ABG pO2 Sodium Potassium Chloride Carbon Dioxide BUN Creatinine Glucose POC Glucose 117 H 127 H Lactic Acid Calcium Phosphorus Magnesium Direct Bilirubin ALT Alkaline Phosphatase Troponin T C-Reactive Protein Total Protein Albumin Triglycerides Cholesterol LDL Cholesterol Direct HDL Cholesterol Urine WBC (Auto) Urine Creatinine Urine Total Protein Vancomycin Trough Rheumatoid Factor Complement C4 Miscellaneous Test Crossmatch 10/20/16 10/21/16 10/21/16 23:39 04:00 05:54 WBC RBC Hgb Hct MCV MCH MCHC RDW Plt Count Lymph % (Auto) [place] % (Auto) Lymph # [place] # Baso # Seg Neutrophils % Seg Neuts % (Manual) Lymphocytes % (Manual) Monocytes % (Manual) Eosinophils % (Manual) Basophils % (Manual) Nucleated RBC % Seg Neutrophils # Seg Neutrophils # Man Lymphocytes # (Manual) Monocytes # (Manual) Eosinophils # (Manual) PT INR Fibrinogen dRVVT Confirm Interp Factor V Activity POC ABG pH POC ABG pCO2 POC ABG pO2 Sodium Potassium 5.4 H D Chloride Carbon Dioxide 15 L BUN 110 H Creatinine 3.0 H Glucose POC Glucose 114 H 119 H Lactic Acid Calcium Phosphorus Magnesium Direct Bilirubin ALT Alkaline Phosphatase Troponin T C-Reactive Protein Total Protein Albumin Triglycerides Cholesterol LDL Cholesterol Direct HDL Cholesterol Urine WBC (Auto) Urine Creatinine Urine Total Protein Vancomycin Trough Rheumatoid Factor Complement C4 Miscellaneous Test Crossmatch 10/21/16 10/22/16 10/22/16 23:46 05:18 06:40 WBC RBC Hgb Hct MCV MCH MCHC RDW Plt Count Lymph % (Auto) [place] % (Auto) Lymph # [place] # Baso # Seg Neutrophils % Seg Neuts % (Manual) Lymphocytes % (Manual) Monocytes % (Manual) Eosinophils % (Manual) Basophils % (Manual) Nucleated RBC % Seg Neutrophils # Seg Neutrophils # Man Lymphocytes # (Manual) Monocytes # (Manual) Eosinophils # (Manual) PT INR Fibrinogen dRVVT Confirm Interp Factor V Activity POC ABG pH POC ABG pCO2 POC ABG pO2 Sodium 130 L D Potassium Chloride 92.4 L Carbon Dioxide 20 L BUN 50 H Creatinine 1.6 H Glucose 589 H* POC Glucose 108 H 109 H Lactic Acid Calcium 7.8 L D Phosphorus Magnesium Direct Bilirubin ALT Alkaline Phosphatase Troponin T C-Reactive Protein Total Protein Albumin Triglycerides Cholesterol LDL Cholesterol Direct HDL Cholesterol Urine WBC (Auto) Urine Creatinine Urine Total Protein Vancomycin Trough Rheumatoid Factor Complement C4 Miscellaneous Test Crossmatch 10/22/16 10/22/16 10/22/16 06:40 06:40 11:39 WBC 14.0 H RBC 2.03 L Hgb 7.0 L Hct 20.5 L MCV 98 H MCH 34 H MCHC 35 H RDW 17.8 H Plt Count Lymph % (Auto) [place] % (Auto) 9.9 H Lymph # [place] # 1.4 H Baso # 0.2 H Seg Neutrophils % 72.0 H Seg Neuts % (Manual) Lymphocytes % (Manual) Monocytes % (Manual) Eosinophils % (Manual) Basophils % (Manual) Nucleated RBC % Seg Neutrophils # 10.0 H Seg Neutrophils # Man Lymphocytes # (Manual) Monocytes # (Manual) Eosinophils # (Manual) PT INR Fibrinogen dRVVT Confirm Interp Factor V Activity POC ABG pH POC ABG pCO2 POC ABG pO2 Sodium Potassium Chloride Carbon Dioxide BUN Creatinine Glucose POC Glucose 142 H Lactic Acid Calcium Phosphorus Magnesium 1.60 L Direct Bilirubin ALT Alkaline Phosphatase Troponin T C-Reactive Protein Total Protein Albumin Triglycerides Cholesterol LDL Cholesterol Direct HDL Cholesterol Urine WBC (Auto) Urine Creatinine Urine Total Protein Vancomycin Trough Rheumatoid Factor Complement C4 Miscellaneous Test Crossmatch 10/22/16 10/22/16 10/23/16 16:44 23:36 04:58 WBC RBC Hgb Hct MCV MCH MCHC RDW Plt Count Lymph % (Auto) [place] % (Auto) Lymph # [place] # Baso # Seg Neutrophils % Seg Neuts % (Manual) Lymphocytes % (Manual) Monocytes % (Manual) Eosinophils % (Manual) Basophils % (Manual) Nucleated RBC % Seg Neutrophils # Seg Neutrophils # Man Lymphocytes # (Manual) Monocytes # (Manual) Eosinophils # (Manual) PT INR Fibrinogen dRVVT Confirm Interp Factor V Activity POC ABG pH POC ABG pCO2 POC ABG pO2 Sodium Potassium Chloride Carbon Dioxide BUN Creatinine Glucose POC Glucose 163 H 123 H 133 H Lactic Acid Calcium Phosphorus Magnesium Direct Bilirubin ALT Alkaline Phosphatase Troponin T C-Reactive Protein Total Protein Albumin Triglycerides Cholesterol LDL Cholesterol Direct HDL Cholesterol Urine WBC (Auto) Urine Creatinine Urine Total Protein Vancomycin Trough Rheumatoid Factor Complement C4 Miscellaneous Test Crossmatch 10/23/16 10/23/16 06:00 12:12 WBC RBC Hgb Hct MCV MCH MCHC RDW Plt Count Lymph % (Auto) [place] % (Auto) Lymph # [place] # Baso # Seg Neutrophils % Seg Neuts % (Manual) Lymphocytes % (Manual) Monocytes % (Manual) Eosinophils % (Manual) Basophils % (Manual) Nucleated RBC % Seg Neutrophils # Seg Neutrophils # Man Lymphocytes # (Manual) Monocytes # (Manual) Eosinophils # (Manual) PT INR Fibrinogen dRVVT Confirm Interp Factor V Activity POC ABG pH POC ABG pCO2 POC ABG pO2 Sodium 133 L Potassium 3.5 L Chloride 96.1 L Carbon Dioxide 18 L BUN 76 H Creatinine 2.1 H Glucose POC Glucose 138 H Lactic Acid Calcium 8.3 L Phosphorus Magnesium Direct Bilirubin ALT Alkaline Phosphatase Troponin T C-Reactive Protein Total Protein Albumin Triglycerides Cholesterol LDL Cholesterol Direct HDL Cholesterol Urine WBC (Auto) Urine Creatinine Urine Total Protein Vancomycin Trough Rheumatoid Factor Complement C4 Miscellaneous Test Crossmatch Allied health notes reviewed: RT
--- NOTE | 2016-10-23 16:22 | Progress Note ---
Assessment and Plan Continue current therapies Hold off on enteral feeding until no distention Subjective Date of service: 10/23/16 Patient Reports: Positive: other (Unchanged) Objective Vital Signs - 12hr 10/23/16 10/23/16 10/23/16 04:30 05:00 05:30 Temperature Pulse Rate 116 H 109 H 108 H Pulse Rate [ From Monitor] Respiratory 17 17 16 Rate Respiratory Rate [ Generalized] Blood Pressure 135/81 137/66 118/64 O2 Sat by Pulse 100 100 100 Oximetry 10/23/16 10/23/16 10/23/16 05:53 06:00 06:30 Temperature Pulse Rate 95 H 97 H 99 H Pulse Rate [ From Monitor] Respiratory 23 20 Rate Respiratory Rate [ Generalized] Blood Pressure 126/66 126/66 109/69 O2 Sat by Pulse 100 99 Oximetry 10/23/16 10/23/16 10/23/16 07:00 07:30 08:00 Temperature 99.3 F Pulse Rate 114 H 118 H 111 H Pulse Rate [ From Monitor] Respiratory 20 20 19 Rate Respiratory Rate [ Generalized] Blood Pressure 105/72 105/72 147/74 O2 Sat by Pulse 100 100 100 Oximetry 10/23/16 10/23/16 10/23/16 08:30 08:40 09:00 Temperature Pulse Rate 113 H 110 H 109 H Pulse Rate [ From Monitor] Respiratory 19 17 17 Rate Respiratory Rate [ Generalized] Blood Pressure 135/84 135/84 139/85 O2 Sat by Pulse 100 100 100 Oximetry 10/23/16 10/23/16 10/23/16 09:04 09:30 10:00 Temperature Pulse Rate 111 H 96 H 100 H Pulse Rate [ From Monitor] Respiratory 16 19 Rate Respiratory 16 Rate [ Generalized] Blood Pressure 139/85 137/81 144/87 O2 Sat by Pulse 100 100 Oximetry 10/23/16 10/23/16 10/23/16 10:30 11:00 11:30 Temperature Pulse Rate 120 H 106 H 110 H Pulse Rate [ From Monitor] Respiratory 25 H 17 15 Rate Respiratory Rate [ Generalized] Blood Pressure 144/87 173/97 175/98 O2 Sat by Pulse 100 100 100 Oximetry 10/23/16 10/23/16 10/23/16 12:00 12:08 12:27 Temperature 98.9 F Pulse Rate 110 H 113 H 115 H Pulse Rate [ 118 H From Monitor] Respiratory 16 17 Rate Respiratory Rate [ Generalized] Blood Pressure 182/98 182/98 176/96 O2 Sat by Pulse 100 100 Oximetry 10/23/16 10/23/16 10/23/16 12:30 13:00 13:30 Temperature Pulse Rate 110 H 109 H 116 H Pulse Rate [ From Monitor] Respiratory 30 H 17 34 H Rate Respiratory Rate [ Generalized] Blood Pressure 170/89 168/84 154/83 O2 Sat by Pulse 100 100 100 Oximetry 10/23/16 10/23/16 10/23/16 14:00 14:07 14:30 Temperature Pulse Rate 117 H 114 H 93 H Pulse Rate [ From Monitor] Respiratory 16 14 Rate Respiratory Rate [ Generalized] Blood Pressure 149/86 149/86 149/86 O2 Sat by Pulse 100 100 Oximetry 10/23/16 15:00 Temperature Pulse Rate 101 H Pulse Rate [ From Monitor] Respiratory 17 Rate Respiratory Rate [ Generalized] Blood Pressure 124/65 O2 Sat by Pulse 100 Oximetry - Abdomen soft, not tender, bowel sounds normal, distended, wound (Less drainage; no cellulitis) - Labs 10/22/16 06:40 10/23/16 06:00 Diabetes panel 10/23/16 Range/Units 06:00 Sodium 133 L (137-145) mmol/L Potassium 3.5 L (3.6-5.0) mmol/L Chloride 96.1 L (98-107) mmol/L Carbon Dioxide 18 L (22-30) mmol/L BUN 76 H (7-17) mg/dL Creatinine 2.1 H (0.7-1.2) mg/dL Glucose 99 (65-100) mg/dL Calcium 8.3 L (8.4-10.2) mg/dL Calcium panel 10/23/16 Range/Units 06:00 Calcium 8.3 L (8.4-10.2) mg/dL Phosphorus 3.10 (2.5-4.5) mg/dL Pituitary panel 10/23/16 Range/Units 06:00 Sodium 133 L (137-145) mmol/L Potassium 3.5 L (3.6-5.0) mmol/L Chloride 96.1 L (98-107) mmol/L Carbon Dioxide 18 L (22-30) mmol/L BUN 76 H (7-17) mg/dL Creatinine 2.1 H (0.7-1.2) mg/dL Glucose 99 (65-100) mg/dL Calcium 8.3 L (8.4-10.2) mg/dL Adrenal panel 10/23/16 Range/Units 06:00 Sodium 133 L (137-145) mmol/L Potassium 3.5 L (3.6-5.0) mmol/L Chloride 96.1 L (98-107) mmol/L Carbon Dioxide 18 L (22-30) mmol/L BUN 76 H (7-17) mg/dL Creatinine 2.1 H (0.7-1.2) mg/dL Glucose 99 (65-100) mg/dL Calcium 8.3 L (8.4-10.2) mg/dL
[2016-10-23] MEDS: DIFLUCAN 200 MG/100 ML BAG IV SCH (18:04)
[2016-10-23] MEDS ORDERED: TPN ADULT 2,016 ML IV SCH (20:00)
[2016-10-23] MEDS: ZOFRAN IV PRN (22:12)
[2016-10-24] MEDS: HumuLIN R SUB-Q SCH ×4 (00:47→22:27)
[2016-10-24] MEDS: LOPRESSOR IV SCH ×6 (01:52→21:12)
[2016-10-24] MEDS: fentaNYL DRIP Premix 2,000 MCG/100 ML BAG IV SCH (04:49)
[2016-10-24] MEDS: ZOSYN/NS 2.25 GM/50ML 2.25 GM/50 ML BAG IV SCH ×3 (05:07→21:16)
[2016-10-24 06:00] LABS: BUN/Creatinine Ratio 37.3; Calcium 8.3 mg/dL (8.4-10.2)
--- NOTE | 2016-10-24 08:07 | Progress Note ---
Assessment and Plan Assessment and plan: --Anemia; probably secondary to GI bleeding Patient received multiple units of PRBC in the past, type and cross and transfuse 2 units of PRBC today re-consult GI if needed If patient has significant vaginal bleeding Consult [facility]IC as needed --Acute hypoxic respiratory failure, status post tracheostomy, on vent more than 96hrs Pulmonary following --Acute massive CVA with mass effect; continue antiplatelets and statins --Toxic metabolic encephalopathy; supportive care --Severe sepsis with septic shock; requiring discharged --Sepsis with UTI candidemia peritonitis due to gastric perforation and dislodged PEG Continue antibiotics per ID --Paroxysmal atrial fibrillation with rapid ventricular rate, failed cardioversion Continue current medications, Not a candidate for anticoagulation secondary to anemia thrombocytopenia and massive CVA --Acute on chronic kidney disease; nephrology following; hemodialysis as needed --Candidemia. On Diflucan --Diabetes mellitus type 2, Insulin/SSI --Severe protein caloric malnutrition, nutrition supplements to proceeding --s/p Thrombocytopenia. Now resolved --DVT prophylaxis, SCDs, no pharmacological agent given anemia , thrombocytopenia, massive stroke --Full code status, very poor prognosis Had a family meetings 10/10/16, 10/14/16 plan of care poor prognosis was discussed health care providers Dispo. Very poor prognosis. Patient needs LTAC placement. Discussed the plan of care with the brother Bebeto at [phone], yesterday answered all his questions Critical care time 31 minutes History Interval history: Patient seen and evaluated, medical records reviewed , Status post tracheostomy on vent Significant drop in H&H,reports mild vaginal bleeding Vital signs reviewed Hospitalist Physical - Constitutional Vitals: Temp Pulse Resp BP Pulse Ox 98.8 F 107 H 20 133/56 100 10/24/16 03:33 10/24/16 08:00 10/24/16 08:00 10/24/16 08:00 10/24/16 08:00 General appearance: Present: no acute distress, obese, other (on vent, non- responsive) - EENT Eyes: Present: PERRL, EOM intact - Neck Neck: Present: supple, normal ROM - Respiratory Respiratory effort: normal Respiratory: bilateral: diminished, rhonchi, negative: rales, wheezing - Cardiovascular Rhythm: regular Heart Sounds: Present: S1 & S2 - Extremities Extremities: abnormal (left-sided upper and lower extremity contracted) Extremity abnormal: edema - Abdominal General gastrointestinal: soft, non-tender, non-distended, normal bowel sounds - Integumentary Integumentary: Present: clear, warm - Psychiatric Psychiatric: other (noncommunicative) - Neurologic Neurologic: other (uncommunicative) Results - Labs CBC & Chem 7: 10/24/16 07:49 10/24/16 04:00 Labs: Laboratory Last Values WBC 14.0 K/mm3 (4.5-11.0) H 10/22/16 06:40 RBC 2.03 M/mm3 (3.65-5.03) L 10/22/16 06:40 Hgb 7.0 gm/dl (10.1-14.3) L 10/22/16 06:40 Hct 20.5 % (30.3-42.9) L 10/22/16 06:40 MCV 98 fl (79-97) H 10/22/16 06:40 MCH 34 pg (28-32) H 10/22/16 06:40 MCHC 35 % (30-34) H 10/22/16 06:40 RDW 17.8 % (13.2-15.2) H 10/22/16 06:40 Plt Count 302 K/mm3 (140-440) 10/22/16 06:40 Lymph % (Auto) 15.9 % (13.4-35.0) 10/22/16 06:40 [place] % (Auto) 9.9 % (0.0-7.3) H 10/22/16 06:40 Eos % (Auto) 0.8 % (0.0-4.3) 10/22/16 06:40 Baso % (Auto) 1.4 % (0.0-1.8) 10/22/16 06:40 Lymph # 2.2 K/mm3 (1.2-5.4) 10/22/16 06:40 [place] # 1.4 K/mm3 (0.0-0.8) H 10/22/16 06:40 Eos # 0.1 K/mm3 (0.0-0.4) 10/22/16 06:40 Baso # 0.2 K/mm3 (0.0-0.1) H 10/22/16 06:40 Add Manual Diff Complete 10/10/16 05:00 Total Counted 100 10/10/16 05:00 Seg Neutrophils % 72.0 % (40.0-70.0) H 10/22/16 06:40 Seg Neuts % (Manual) 61.0 % (40.0-70.0) 10/10/16 05:00 Band Neutrophils % 24.0 % 10/10/16 05:00 Lymphocytes % (Manual) 10.0 % (13.4-35.0) L 10/10/16 05:00 Reactive Lymphs % (Man) 0 % 10/10/16 05:00 Monocytes % (Manual) 2.0 % (0.0-7.3) 10/10/16 05:00 Eosinophils % (Manual) 0 % (0.0-4.3) 10/10/16 05:00 Basophils % (Manual) 0 % (0.0-1.8) 10/10/16 05:00 Metamyelocytes % 3.0 % 10/10/16 05:00 Myelocytes % 0 % 10/10/16 05:00 Promyelocytes % 0 % 10/10/16 05:00 Blast Cells % 0 % 10/10/16 05:00 Nucleated RBC % 4.0 % (0.0-0.9) H 10/10/16 05:00 Seg Neutrophils # 10.0 K/mm3 (1.8-7.7) H 10/22/16 06:40 Seg Neutrophils # Man 11.3 K/mm3 (1.8-7.7) H 10/10/16 05:00 Band Neutrophils # 4.4 K/mm3 10/10/16 05:00 Lymphocytes # (Manual) 1.9 K/mm3 (1.2-5.4) 10/10/16 05:00 Abs React Lymphs (Man) 0.0 K/mm3 10/10/16 05:00 Monocytes # (Manual) 0.4 K/mm3 (0.0-0.8) 10/10/16 05:00 Eosinophils # (Manual) 0.0 K/mm3 (0.0-0.4) 10/10/16 05:00 Basophils # (Manual) 0.0 K/mm3 (0.0-0.1) 10/10/16 05:00 Metamyelocytes # 0.6 K/mm3 10/10/16 05:00 Myelocytes # 0.0 K/mm3 10/10/16 05:00 Promyelocytes # 0.0 K/mm3 10/10/16 05:00 Blast Cells # 0.0 K/mm3 10/10/16 05:00 Pathologist Review 09/13/16 04:00 WBC Morphology Not Reportable 10/10/16 05:00 Hypersegmented Neuts Not Reportable 10/10/16 05:00 Hyposegmented Neuts Not Reportable 10/10/16 05:00 Hypogranular Neuts Not Reportable 10/10/16 05:00 Smudge Cells Not Reportable 10/10/16 05:00 Toxic Granulation Not Reportable 10/10/16 05:00 Toxic Vacuolation Not Reportable 10/10/16 05:00 Dohle Bodies Not Reportable 10/10/16 05:00 Pelger-Huet Anomaly Not Reportable 10/10/16 05:00 Jasmina Rods Not Reportable 10/10/16 05:00 Platelet Estimate Consistent w auto 10/10/16 05:00 Clumped Platelets Not Reportable 10/10/16 05:00 Plt Clumps, EDTA Not Reportable 10/10/16 05:00 Large Platelets Not Reportable 10/10/16 05:00 Giant Platelets Not Reportable 10/10/16 05:00 Platelet Satelliting Not Reportable 10/10/16 05:00 Plt Morphology Comment Not Reportable 10/10/16 05:00 RBC Morphology Not Reportable 10/10/16 05:00 Dimorphic RBCs Not Reportable 10/10/16 05:00 Polychromasia Rare 10/10/16 05:00 Hypochromasia 1+ 10/10/16 05:00 Poikilocytosis Not Reportable 10/10/16 05:00 Anisocytosis 1+ 10/10/16 05:00 Microcytosis Not Reportable 10/10/16 05:00 Macrocytosis 1+ 10/10/16 05:00 Spherocytes Not Reportable 10/10/16 05:00 Pappenheimer Bodies Not Reportable 10/10/16 05:00 Sickle Cells Not Reportable 10/10/16 05:00 Target Cells Not Reportable 10/10/16 05:00 Tear Drop Cells Not Reportable 10/10/16 05:00 Ovalocytes Not Reportable 10/10/16 05:00 Stomatocytes Few 10/06/16 03:50 Helmet Cells Not Reportable 10/10/16 05:00 [place] Bodies Not Reportable 10/10/16 05:00 [place] Rings Not Reportable 10/10/16 05:00 [place] Cells Not Reportable 10/10/16 05:00 Bite Cells Not Reportable 10/10/16 05:00 Crenated Cell Not Reportable 10/10/16 05:00 Elliptocytes Not Reportable 10/10/16 05:00 Acanthocytes (Spur) Not Reportable 10/10/16 05:00 Rouleaux Not Reportable 10/10/16 05:00 Hemoglobin C Crystals Not Reportable 10/10/16 05:00 Schistocytes Not Reportable 10/10/16 05:00 Malaria parasites Not Reportable 10/10/16 05:00 ESR > 140.0 mm/Hr (0-20) 09/08/16 11:48 Jun Bodies Not Reportable 10/10/16 05:00 Hem Pathologist Commnt No 10/10/16 05:00 PT 19.0 Sec. (12.2-14.9) H 10/09/16 03:45 INR 1.51 (0.87-1.13) H 10/09/16 03:45 APTT 33.0 Sec. (24.2-36.6) 10/09/16 03:45 Thrombin Time 16.8 Sec. (15.1-19.6) 09/03/16 00:10 Fibrinogen 750 mg/dl (211-480) H 09/08/16 11:48 Lupus Anticoagulant see below 09/12/16 09:59 LA PTT Baseline See scanned report 09/12/16 09:59 dRVVT Confirm Interp Positive (Negative) H 09/12/16 09:59 dRVVT Screen 50:50 See scanned report 09/12/16 09:59 dRVVT Mix Interpret See scanned report 09/12/16 09:59 Protein C Antigen 122 % (70-140) 09/08/16 15:35 Free Protein S 97 % normal (50-147) 09/08/16 15:35 Total Protein S 109 % (70-140) 09/08/16 15:35 Antithrombin III Ag 100 % (80-120) 09/08/16 15:35 Heparin Anti-Xa, Unfract Negative (Negative) 09/29/16 13:35 Factor V Activity 182 % (65-150) H 09/08/16 15:35 POC ABG pH 7.561 (7.35-7.45) H 10/16/16 20:48 POC ABG pCO2 24.4 (35-45) L 10/16/16 20:48 POC ABG pO2 77 (80-105) L 10/16/16 20:48 POC ABG HCO3 21.9 10/16/16 20:48 POC ABG Total CO2 23 10/16/16 20:48 POC ABG O2 Sat 97 10/16/16 20:48 POC ABG Base Excess 0 10/16/16 20:48 FiO2 25 % 10/16/16 20:48 Sodium 131 mmol/L (137-145) L 10/24/16 04:00 Potassium 4.4 mmol/L (3.6-5.0) D 10/24/16 04:00 Chloride 94.5 mmol/L (98-107) L 10/24/16 04:00 Carbon Dioxide 19 mmol/L (22-30) L 10/24/16 04:00 Anion Gap 22 mmol/L 10/24/16 04:00 BUN 97 mg/dL (7-17) H 10/24/16 04:00 Creatinine 2.6 mg/dL (0.7-1.2) H 10/24/16 04:00 Estimated GFR 24 ml/min 10/24/16 04:00 BUN/Creatinine Ratio 37.30 % 10/24/16 04:00 Glucose 110 mg/dL (65-100) H 10/24/16 04:00 POC Glucose 105 (70-105) 10/24/16 05:31 Osmolality 351 Mosm/kg 09/16/16 11:47 Lactic Acid 4.50 mmol/L (0.7-2.0) H* 09/28/16 07:25 Calcium 8.3 mg/dL (8.4-10.2) L 10/24/16 04:00 Phosphorus 3.40 mg/dL (2.5-4.5) 10/24/16 04:00 Magnesium 2.10 mg/dL (1.7-2.3) 10/24/16 04:00 Total Bilirubin 0.30 mg/dL (0.1-1.2) 10/17/16 04:24 Direct Bilirubin 0.3 mg/dL (0-0.2) H 10/10/16 05:00 Indirect Bilirubin 0.1 mg/dL 10/10/16 05:00 AST 39 units/L (5-40) 10/17/16 04:24 ALT 13 units/L (7-56) 10/17/16 04:24 Alkaline Phosphatase 138 units/L (35-129) H 10/17/16 04:24 Ammonia 27.0 umol/L (25-60) 09/07/16 08:37 Total Creatine Kinase 121 units/L (30-135) 09/29/16 20:12 CK-MB (CK-2) < 1.0 ng/mL (0.0-4.0) 09/29/16 20:12 CK-MB (CK-2) Rel Index 0.8 (0-4) 09/29/16 20:12 Troponin T 0.204 ng/mL (0.00-0.029) H* 09/29/16 20:12 C-Reactive Protein 15.80 mg/dL (0.00-1.30) H 10/11/16 04:15 Total Protein 6.2 g/dL (6.3-8.2) L 10/17/16 04:24 Albumin 1.5 g/dL (3.9-5) L 10/17/16 04:24 Albumin/Globulin Ratio 0.3 % 10/17/16 04:24 Triglycerides 137 mg/dL (2-149) 09/29/16 20:12 Cholesterol 31 mg/dL (50-199) L 09/29/16 20:12 LDL Cholesterol Direct 4 mg/dL (50-130) L 09/29/16 20:12 HDL Cholesterol 3 mg/dL (40-59) L 09/29/16 20:12 Cholesterol/HDL Ratio 10.33 % 09/29/16 20:12 Angiotensin Convert Enz See scanned report 09/08/16 11:48 Renin 0.99 ng/mL/h (0.25-5.82) 10/07/16 10:56 Aldosterone <1 ng/dL () 10/07/16 10:56 Aldosterone/Renin Dir see below 10/07/16 10:56 Serotonin Release Assay See scanned report 09/29/16 13:35 TSH 1.010 mlU/mL (0.270-4.200) 09/07/16 08:37 HCG, Qual Negative (Negative) 09/03/16 00:10 Urine Color [place] (Yellow) 10/07/16 18:30 Urine Turbidity Turbid (Clear) 10/07/16 18:30 Urine pH 7.0 (5.0-7.0) 10/07/16 18:30 Ur Specific Colp 1.012 (1.003-1.030) 10/07/16 18:30 Urine Protein 100 mg/dl mg/dL (Negative) 10/07/16 18:30 Urine Glucose (UA) Neg mg/dL (Negative) 10/07/16 18:30 Urine Ketones Neg mg/dL (Negative) 10/07/16 18:30 Urine Blood Lg (Negative) 10/07/16 18:30 Urine Nitrite Neg (Negative) 10/07/16 18:30 Urine Bilirubin Neg (Negative) 10/07/16 18:30 Urine Urobilinogen < 2.0 mg/dL (<2.0) 10/07/16 18:30 Ur Leukocyte Esterase Lg (Negative) 10/07/16 18:30 Urine WBC (Auto) > 182.0 /HPF (0.0-6.0) H 10/07/16 18:30 Urine RBC (Auto) > 182.0 /HPF (0.0-6.0) 10/07/16 18:30 U Epithel Cells (Auto) 1.0 /HPF (0-13.0) 10/07/16 18:30 Urine Bacteria (Auto) 3+ /HPF (Negative) 10/07/16 18:30 Urine WBC Clumps 2+ /HPF 09/07/16 02:47 Hyaline Casts 4 /LPF 09/07/16 02:47 Urine Mucus Few /HPF 10/07/16 18:30 Urine Yeast (Budding) 3+ /HPF 10/07/16 18:30 Urine Eosinophils None seen (None Seen) 09/07/16 16:00 Urine Total Volume 1350 09/21/16 12:00 Urine Creatinine 54.8 mg/dL (0.1-20.0) H 09/21/16 12:00 Height (in) 67.0 inches 09/21/16 12:00 Weight (lb) 92.0 lbs 09/21/16 12:00 Creatinine Clearance 15 09/21/16 12:00 Urine Sodium 36 mEq/L 09/16/16 19:19 Urine Total Protein 16 mg/dL (5-11.8) H 09/16/16 19:19 Vancomycin Trough 2.3 ug/mL (5.0-20.0) L 09/21/16 13:00 Random Vancomycin 17.0 ug/mL (0-40.0) 10/20/16 06:00 Urine Opiates Screen Presumptive negative 09/03/16 15:11 Urine Methadone Screen Presumptive positive 09/03/16 15:11 Ur Barbiturates Screen Presumptive positive 09/03/16 15:11 Ur Phencyclidine Scrn Presumptive negative 09/03/16 15:11 Ur Amphetamines Screen Presumptive negative 09/03/16 15:11 U Benzodiazepines Scrn Presumptive negative 09/03/16 15:11 Urine Cocaine Screen Presumptive negative 09/03/16 15:11 U Marijuana (THC) Screen Presumptive positive 09/03/16 15:11 Drugs of Abuse Note Disclamer 09/03/16 15:11 Rheumatoid Factor 24 IU/ml (0-13) H 09/08/16 11:48 SAHIL Screen Negative (Negative) 09/07/16 09:20 Proteinase 3 (PR3) Ab <1.0 AI (<1.0) 09/07/16 09:20 Myeloperoxidase Ab <1.0 AI (<1.0) 09/07/16 09:20 Sjogren's Antibody <1.0 AI (<1.0) 09/08/16 15:35 Scl-70 Scleroderma Ab <1.0 AI (<1.0) 09/08/16 15:35 Centromere B Antibody <1.0 AI (<1.0) 09/08/16 12:02 Heparin-induced Plt Ab Negative (Negative) 09/29/16 13:35 UF Heparin High Dose 11 % Release 09/29/16 13:35 SUDHIR UFH Low Dose 0.1 6 % Release 09/29/16 13:35 SUDHIR UFH Low Dose 0.5 8 % Release 09/29/16 13:35 Cardiolipid IgG Ab <14 GPL (<=14) 09/12/16 09:59 Cardiolipid IgA Ab <11 APL (<=11) 09/12/16 09:59 Cardiolipid IgM Ab <12 MPL (<=12) 09/12/16 09:59 Complement C3 148 mg/dL (90-180) 09/07/16 09:20 Complement C4 58 mg/dL (16-47) H 09/07/16 09:20 RPR Nonreactive (Nonreactive) 09/08/16 11:48 Hepatitis A IgM Ab Non-reactive (NonReactive) 09/24/16 14:40 Hep Bs Antigen Non-reactive (Negative) 09/24/16 14:40 Hep B Core IgM Ab Non-reactive (NonReactive) 09/24/16 14:40 Hepatitis C Antibody Non-reactive (NonReactive) 09/24/16 14:40 HIV 1&2 Antibody Rapid Non react (Non React) 09/08/16 11:48 HIV P24 Antigen Non react (Non React) 09/08/16 11:48 Miscellaneous Test Flexitest 1 H 10/20/16 16:00 Blood Type A POSITIVE 10/09/16 07:20 Antibody Screen Negative 10/09/16 07:20 DELORIS Antibody Screen Negative 09/25/16 10:30 Crossmatch See Detail 10/09/16 07:20
[2016-10-24 08:37] LABS: Hematocrit 19.7 % (30.3-42.9)
[2016-10-24] MEDS ORDERED: NACL 0.9% 500 ML 500 ML IV ONE (08:41)
[2016-10-24] MEDS: PROTONIX IV SCH (09:24)
--- NOTE | 2016-10-24 09:59 | Progress Note ---
Assessment and Plan - Patient Problems (1) Acute respiratory failure with hypoxia Current Visit: Yes Status: Acute Plan to address problem: Continue with mechanical ventilatory support and daily SBTs as tolerated Lung protective strategies -VAP bundle, HOB >40 - SCDs for VTE prophylaxis - Stress ulcer prophylaxis -Bronchodilators- h/o asthma -Herdnon catheter in this critically ill patient - TPN, accucheck with glycemic control - Agitation management/analgesia - ABGs and CXR PRN -Start ATP trials in the morning as tolerated -Trach care per RT Needs transfer to LTACH and chronic weaning from mechanical ventilatory support (2) Acute blood loss anemia Current Visit: Yes Status: Acute Plan to address problem: Transfuse for Hgh 7g/dl (3) Acute CVA (cerebrovascular accident) Current Visit: Yes Status: Acute Plan to address problem: CTScan -subacute MCA territory infarct Secondary stroke prophylaxis Neuroprotective measures Aspiration precautions (4) Chronic renal insufficiency Current Visit: Yes Status: Acute Qualifiers: Chronic kidney disease stage: C Plan to address problem: UF/HD per renal service Renal following (5) Uncontrolled hypertension Current Visit: Yes Status: Acute Plan to address problem: Monitor closely and adjust anti-hypertensive medications (6) Leukocytosis (leucocytosis) Current Visit: Yes Status: Acute Qualifiers: Leukocytosis type: leukemoid reaction Qualified Code(s): D72.823 - Leukemoid reaction Plan to address problem: Improving. ID following and monitoring (7) Dislodged gastrostomy tube Current Visit: Yes Status: Acute Plan to address problem: With bowel perforation/peritonitis. Purulent drainage from HEMA drain. Remains NPO and on TPN for nutritional support. (8) Fungemia Current Visit: Yes Status: Acute Subjective Date of service: 10/24/16 Principal diagnosis: Acute resp failure on MVS; S/P Acute CVA; Acute Encephalopathy; JUANITA Interval history: Seen and examined. Vitals, labs, medications, chart reviewed. On mechanical ventilatory support On TPN, with purulent drainage from the HEMA drain. No fevers.Currently no further surgical interventions Discussed with RT and RN during interdisciplinary rounds. For HD today, for blood transfusions today. Question of vaginal bleeding per RN Tolerating SBT- PS10/5, for 10 hours yesterday, generating tidal volumes of about 475ml Objective - Exam Narrative Exam: General appearance: alert, non verbal, on the vent via trach no following commands Opens eyes to voice Eyes: anicteric sclera, moist conjunctivae; PERRLA HENT: Atraumatic; oropharynx limited; Normal external ears. +NGT with greenish secretion Neck: +trach in place; supple, no lymphadenopathy Lungs: coarse BS bilateral CV: tachycardic, S1,S2 Abdomen: Soft, non-tender, +drain with purulent drainage, + diarrhea via rectal tube leaking. +old PEG site no drainage. Right sided Surgical site packed still draining serous fluid Extremities: +peripheral edema no extremity lymphadenopathy Skin: Julian sub mammary ulcers, extensive skin peeling on back Neuro: opens eyes on verbal stimulation, not tracking, not obeying commands Lines: left arm PICC placed on 10/03 Vital Signs - 12hr 10/23/16 10/23/16 10/23/16 22:00 22:03 22:10 Temperature Pulse Rate 110 H 107 H 107 H Respiratory 18 Rate Respiratory Rate [ Generalized] Blood Pressure 177/89 177/89 177/89 O2 Sat by Pulse 100 Oximetry O2 Sat by Pulse Oximetry [ Assessment] 10/23/16 10/23/16 10/23/16 22:30 23:00 23:07 Temperature 99 F Pulse Rate 111 H 106 H Respiratory 20 18 Rate Respiratory Rate [ Generalized] Blood Pressure 166/90 160/89 O2 Sat by Pulse 100 100 Oximetry O2 Sat by Pulse Oximetry [ Assessment] 10/23/16 10/24/16 10/24/16 23:30 00:00 00:04 Temperature Pulse Rate 104 H 111 H 112 H Respiratory 18 18 Rate Respiratory Rate [ Generalized] Blood Pressure 156/77 148/84 148/84 O2 Sat by Pulse 100 100 100 Oximetry O2 Sat by Pulse 100 Oximetry [ Assessment] 10/24/16 10/24/16 10/24/16 00:30 01:00 01:30 Temperature Pulse Rate 109 H 110 H 105 H Respiratory 20 18 17 Rate Respiratory Rate [ Generalized] Blood Pressure 148/76 146/80 140/80 O2 Sat by Pulse 100 100 100 Oximetry O2 Sat by Pulse Oximetry [ Assessment] 10/24/16 10/24/16 10/24/16 01:52 02:00 02:30 Temperature Pulse Rate 117 H 112 H 109 H Respiratory 19 16 Rate Respiratory Rate [ Generalized] Blood Pressure 160/89 150/85 152/79 O2 Sat by Pulse 100 100 Oximetry O2 Sat by Pulse Oximetry [ Assessment] 10/24/16 10/24/16 10/24/16 03:00 03:30 03:33 Temperature 98.8 F Pulse Rate 112 H 111 H Respiratory 17 16 Rate Respiratory Rate [ Generalized] Blood Pressure 157/86 158/88 O2 Sat by Pulse 100 100 Oximetry O2 Sat by Pulse Oximetry [ Assessment] 10/24/16 10/24/16 10/24/16 04:00 04:09 04:30 Temperature Pulse Rate 111 H 114 H 113 H Respiratory 16 18 Rate Respiratory 14 Rate [ Generalized] Blood Pressure 149/82 149/82 158/89 O2 Sat by Pulse 100 100 100 Oximetry O2 Sat by Pulse Oximetry [ Assessment] 10/24/16 10/24/16 10/24/16 05:00 05:08 05:30 Temperature Pulse Rate 115 H 113 H 97 H Respiratory 19 20 Rate Respiratory Rate [ Generalized] Blood Pressure 159/89 159/89 148/77 O2 Sat by Pulse 100 100 Oximetry O2 Sat by Pulse Oximetry [ Assessment] 10/24/16 10/24/16 10/24/16 06:00 06:30 07:00 Temperature Pulse Rate 109 H 114 H 113 H Respiratory 18 19 16 Rate Respiratory Rate [ Generalized] Blood Pressure 158/84 166/82 166/82 O2 Sat by Pulse 100 100 Oximetry O2 Sat by Pulse Oximetry [ Assessment] 10/24/16 10/24/16 10/24/16 07:08 07:13 07:30 Temperature Pulse Rate 118 H 122 H 109 H Respiratory 26 H 18 Rate Respiratory Rate [ Generalized] Blood Pressure 147/80 147/80 132/78 O2 Sat by Pulse 96 97 100 Oximetry O2 Sat by Pulse Oximetry [ Assessment] 10/24/16 10/24/16 10/24/16 07:37 07:38 08:00 Temperature 99.2 F Pulse Rate 107 H Respiratory 20 Rate Respiratory Rate [ Generalized] Blood Pressure 133/56 O2 Sat by Pulse 100 100 Oximetry O2 Sat by Pulse 99 Oximetry [ Assessment] 10/24/16 10/24/16 10/24/16 08:30 09:00 09:24 Temperature Pulse Rate 111 H 119 H 109 H Respiratory 17 35 H Rate Respiratory Rate [ Generalized] Blood Pressure 145/73 145/73 143/82 O2 Sat by Pulse 100 92 Oximetry O2 Sat by Pulse Oximetry [ Assessment] 10/24/16 09:30 Temperature Pulse Rate 100 H Respiratory 16 Rate Respiratory Rate [ Generalized] Blood Pressure 122/78 O2 Sat by Pulse 100 Oximetry O2 Sat by Pulse Oximetry [ Assessment] Constitutional: no acute distress, other (eyes open; not tracking movements) Eyes: non-icteric, other (tracheostomy tube in midline of neck) ENT: oropharynx moist Neck: supple, no lymphadenopathy Effort: mildly labored Ascultation: Bilateral: clear, diminished breath sounds (bases), rales, rhonchi Cardiovascular: regular rate and rhythm Gastrointestinal: hypoactive bowel sounds, soft, non-tender, non-distended, other (hema drain in place) Integumentary: other (erythema to skin of back with some healing areas; no obvious TEN's features) Extremities: no cyanosis, no edema, pulses normal, no ischemia or petechiae Neurologic: pupils equal and round, other (sedated) Psychiatric: other (unable to assess) CBC and BMP: 10/24/16 07:49 10/24/16 04:00 ABG, PT/INR, D-dimer: ABG POC ABG pH 7.561 (7.35-7.45) H 10/16/16 20:48 POC ABG pCO2 24.4 (35-45) L 10/16/16 20:48 POC ABG pO2 77 (80-105) L 10/16/16 20:48 POC ABG HCO3 21.9 10/16/16 20:48 POC ABG Total CO2 23 10/16/16 20:48 POC ABG O2 Sat 97 10/16/16 20:48 PT/INR, D-dimer PT 19.0 Sec. (12.2-14.9) H 10/09/16 03:45 INR 1.51 (0.87-1.13) H 10/09/16 03:45 Abnormal lab findings: Abnormal Labs 09/03/16 09/03/16 09/03/16 12:12 15: 16:20 WBC RBC Hgb Hct MCV MCH MCHC RDW Plt Count Lymph % (Auto) [place] % (Auto) Lymph # [place] # Baso # Seg Neutrophils % Seg Neuts % (Manual) Lymphocytes % (Manual) Monocytes % (Manual) Eosinophils % (Manual) Basophils % (Manual) Nucleated RBC % Seg Neutrophils # Seg Neutrophils # Man Lymphocytes # (Manual) Monocytes # (Manual) Eosinophils # (Manual) PT INR Fibrinogen dRVVT Confirm Interp Factor V Activity POC ABG pH 7.452 H POC ABG pCO2 POC ABG pO2 Sodium Potassium Chloride Carbon Dioxide BUN Creatinine Glucose POC Glucose 178 H Lactic Acid Calcium Phosphorus 2.20 L Magnesium 1.60 L Direct Bilirubin ALT Alkaline Phosphatase Troponin T C-Reactive Protein Total Protein Albumin Triglycerides Cholesterol LDL Cholesterol Direct HDL Cholesterol Urine WBC (Auto) Urine Creatinine Urine Total Protein Vancomycin Trough Rheumatoid Factor Complement C4 Miscellaneous Test Crossmatch 09/03/16 09/03/16 09/03/16 17:57 17:58 23:50 WBC RBC Hgb Hct MCV MCH MCHC RDW Plt Count Lymph % (Auto) [place] % (Auto) Lymph # [place] # Baso # Seg Neutrophils % Seg Neuts % (Manual) Lymphocytes % (Manual) Monocytes % (Manual) Eosinophils % (Manual) Basophils % (Manual) Nucleated RBC % Seg Neutrophils # Seg Neutrophils # Man Lymphocytes # (Manual) Monocytes # (Manual) Eosinophils # (Manual) PT INR Fibrinogen dRVVT Confirm Interp Factor V Activity POC ABG pH POC ABG pCO2 POC ABG pO2 Sodium Potassium Chloride Carbon Dioxide BUN Creatinine Glucose POC Glucose 162 H 145 H Lactic Acid Calcium Phosphorus 2.30 L Magnesium Direct Bilirubin ALT Alkaline Phosphatase Troponin T C-Reactive Protein Total Protein Albumin Triglycerides Cholesterol LDL Cholesterol Direct HDL Cholesterol Urine WBC (Auto) Urine Creatinine Urine Total Protein Vancomycin Trough Rheumatoid Factor Complement C4 Miscellaneous Test Crossmatch 09/04/16 09/04/16 09/04/16 03:31 03:31 05:42 WBC RBC Hgb 9.7 L D Hct MCV 72 L MCH 23 L MCHC RDW 17.5 H Plt Count Lymph % (Auto) 11.1 L [place] % (Auto) Lymph # [place] # Baso # Seg Neutrophils % 84.3 H Seg Neuts % (Manual) Lymphocytes % (Manual) Monocytes % (Manual) Eosinophils % (Manual) Basophils % (Manual) Nucleated RBC % Seg Neutrophils # 8.9 H Seg Neutrophils # Man Lymphocytes # (Manual) Monocytes # (Manual) Eosinophils # (Manual) PT INR Fibrinogen dRVVT Confirm Interp Factor V Activity POC ABG pH POC ABG pCO2 POC ABG pO2 Sodium 135 L Potassium 2.9 L* Chloride 97.2 L Carbon Dioxide 19 L BUN Creatinine 1.7 H Glucose 170 H POC Glucose 152 H Lactic Acid Calcium Phosphorus Magnesium Direct Bilirubin ALT Alkaline Phosphatase Troponin T C-Reactive Protein Total Protein Albumin Triglycerides 160 H Cholesterol LDL Cholesterol Direct HDL Cholesterol 31 L Urine WBC (Auto) Urine Creatinine Urine Total Protein Vancomycin Trough Rheumatoid Factor Complement C4 Miscellaneous Test Crossmatch 09/04/16 09/04/16 09/04/16 11:34 17:46 23:29 WBC RBC Hgb Hct MCV MCH MCHC RDW Plt Count Lymph % (Auto) [place] % (Auto) Lymph # [place] # Baso # Seg Neutrophils % Seg Neuts % (Manual) Lymphocytes % (Manual) Monocytes % (Manual) Eosinophils % (Manual) Basophils % (Manual) Nucleated RBC % Seg Neutrophils # Seg Neutrophils # Man Lymphocytes # (Manual) Monocytes # (Manual) Eosinophils # (Manual) PT INR Fibrinogen dRVVT Confirm Interp Factor V Activity POC ABG pH POC ABG pCO2 POC ABG pO2 Sodium Potassium Chloride Carbon Dioxide BUN Creatinine Glucose POC Glucose 165 H 210 H 139 H Lactic Acid Calcium Phosphorus Magnesium Direct Bilirubin ALT Alkaline Phosphatase Troponin T C-Reactive Protein Total Protein Albumin Triglycerides Cholesterol LDL Cholesterol Direct HDL Cholesterol Urine WBC (Auto) Urine Creatinine Urine Total Protein Vancomycin Trough Rheumatoid Factor Complement C4 Miscellaneous Test Crossmatch 09/05/16 09/05/16 09/05/16 04:05 04:05 05:38 WBC RBC Hgb Hct MCV 76 L D MCH 23 L MCHC RDW 17.8 H Plt Count Lymph % (Auto) [place] % (Auto) Lymph # [place] # Baso # Seg Neutrophils % Seg Neuts % (Manual) Lymphocytes % (Manual) Monocytes % (Manual) Eosinophils % (Manual) Basophils % (Manual) Nucleated RBC % Seg Neutrophils # Seg Neutrophils # Man Lymphocytes # (Manual) Monocytes # (Manual) Eosinophils # (Manual) PT INR Fibrinogen dRVVT Confirm Interp Factor V Activity POC ABG pH POC ABG pCO2 POC ABG pO2 Sodium 134 L Potassium Chloride Carbon Dioxide 18 L BUN Creatinine 1.8 H Glucose 192 H POC Glucose 175 H Lactic Acid Calcium Phosphorus Magnesium Direct Bilirubin ALT Alkaline Phosphatase Troponin T C-Reactive Protein Total Protein Albumin Triglycerides Cholesterol LDL Cholesterol Direct HDL Cholesterol Urine WBC (Auto) Urine Creatinine Urine Total Protein Vancomycin Trough Rheumatoid Factor Complement C4 Miscellaneous Test Crossmatch 09/05/16 09/05/16 09/05/16 11:38 17:48 23:22 WBC RBC Hgb Hct MCV MCH MCHC RDW Plt Count Lymph % (Auto) [place] % (Auto) Lymph # [place] # Baso # Seg Neutrophils % Seg Neuts % (Manual) Lymphocytes % (Manual) Monocytes % (Manual) Eosinophils % (Manual) Basophils % (Manual) Nucleated RBC % Seg Neutrophils # Seg Neutrophils # Man Lymphocytes # (Manual) Monocytes # (Manual) Eosinophils # (Manual) PT INR Fibrinogen dRVVT Confirm Interp Factor V Activity POC ABG pH POC ABG pCO2 POC ABG pO2 Sodium Potassium Chloride Carbon Dioxide BUN Creatinine Glucose POC Glucose 164 H 186 H 195 H Lactic Acid Calcium Phosphorus Magnesium Direct Bilirubin ALT Alkaline Phosphatase Troponin T C-Reactive Protein Total Protein Albumin Triglycerides Cholesterol LDL Cholesterol Direct HDL Cholesterol Urine WBC (Auto) Urine Creatinine Urine Total Protein Vancomycin Trough Rheumatoid Factor Complement C4 Miscellaneous Test Crossmatch 09/06/16 09/06/16 09/06/16 04:12 05:59 07:32 WBC RBC Hgb Hct MCV MCH MCHC RDW Plt Count Lymph % (Auto) [place] % (Auto) Lymph # [place] # Baso # Seg Neutrophils % Seg Neuts % (Manual) Lymphocytes % (Manual) Monocytes % (Manual) Eosinophils % (Manual) Basophils % (Manual) Nucleated RBC % Seg Neutrophils # Seg Neutrophils # Man Lymphocytes # (Manual) Monocytes # (Manual) Eosinophils # (Manual) PT INR Fibrinogen dRVVT Confirm Interp Factor V Activity POC ABG pH 7.514 H POC ABG pCO2 29.1 L POC ABG pO2 72 L Sodium 133 L Potassium 3.4 L Chloride 94.9 L Carbon Dioxide 19 L BUN 30 H Creatinine 2.1 H Glucose 139 H POC Glucose 146 H Lactic Acid Calcium Phosphorus Magnesium Direct Bilirubin ALT Alkaline Phosphatase Troponin T C-Reactive Protein Total Protein Albumin Triglycerides Cholesterol LDL Cholesterol Direct HDL Cholesterol Urine WBC (Auto) Urine Creatinine Urine Total Protein Vancomycin Trough Rheumatoid Factor Complement C4 Miscellaneous Test Crossmatch 09/06/16 09/06/16 09/06/16 11:57 17:58 19:02 WBC RBC Hgb Hct MCV MCH MCHC RDW Plt Count Lymph % (Auto) [place] % (Auto) Lymph # [place] # Baso # Seg Neutrophils % Seg Neuts % (Manual) Lymphocytes % (Manual) Monocytes % (Manual) Eosinophils % (Manual) Basophils % (Manual) Nucleated RBC % Seg Neutrophils # Seg Neutrophils # Man Lymphocytes # (Manual) Monocytes # (Manual) Eosinophils # (Manual) PT INR Fibrinogen dRVVT Confirm Interp Factor V Activity POC ABG pH 7.465 H POC ABG pCO2 32.0 L POC ABG pO2 Sodium Potassium Chloride Carbon Dioxide BUN Creatinine Glucose POC Glucose 165 H 160 H Lactic Acid Calcium Phosphorus Magnesium Direct Bilirubin ALT Alkaline Phosphatase Troponin T C-Reactive Protein Total Protein Albumin Triglycerides Cholesterol LDL Cholesterol Direct HDL Cholesterol Urine WBC (Auto) Urine Creatinine Urine Total Protein Vancomycin Trough Rheumatoid Factor Complement C4 Miscellaneous Test Crossmatch 09/06/16 09/07/16 09/07/16 23:45 02:47 02:47 WBC RBC Hgb Hct MCV MCH MCHC RDW Plt Count Lymph % (Auto) [place] % (Auto) Lymph # [place] # Baso # Seg Neutrophils % Seg Neuts % (Manual) Lymphocytes % (Manual) Monocytes % (Manual) Eosinophils % (Manual) Basophils % (Manual) Nucleated RBC % Seg Neutrophils # Seg Neutrophils # Man Lymphocytes # (Manual) Monocytes # (Manual) Eosinophils # (Manual) PT INR Fibrinogen dRVVT Confirm Interp Factor V Activity POC ABG pH POC ABG pCO2 POC ABG pO2 Sodium Potassium Chloride Carbon Dioxide BUN Creatinine Glucose POC Glucose 204 H Lactic Acid Calcium Phosphorus Magnesium Direct Bilirubin ALT Alkaline Phosphatase Troponin T C-Reactive Protein Total Protein Albumin Triglycerides Cholesterol LDL Cholesterol Direct HDL Cholesterol Urine WBC (Auto) 68.0 H Urine Creatinine 106.1 H Urine Total Protein Vancomycin Trough Rheumatoid Factor Complement C4 Miscellaneous Test Crossmatch 09/07/16 09/07/16 09/07/16 04:50 06:19 06:39 WBC RBC Hgb Hct MCV MCH MCHC RDW Plt Count Lymph % (Auto) [place] % (Auto) Lymph # [place] # Baso # Seg Neutrophils % Seg Neuts % (Manual) Lymphocytes % (Manual) Monocytes % (Manual) Eosinophils % (Manual) Basophils % (Manual) Nucleated RBC % Seg Neutrophils # Seg Neutrophils # Man Lymphocytes # (Manual) Monocytes # (Manual) Eosinophils # (Manual) PT INR Fibrinogen dRVVT Confirm Interp Factor V Activity POC ABG pH 7.457 H POC ABG pCO2 32.1 L POC ABG pO2 76 L Sodium 132 L Potassium Chloride 94.7 L Carbon Dioxide BUN 53 H Creatinine 2.9 H Glucose 151 H POC Glucose 149 H Lactic Acid Calcium Phosphorus Magnesium Direct Bilirubin ALT Alkaline Phosphatase Troponin T C-Reactive Protein Total Protein Albumin Triglycerides Cholesterol LDL Cholesterol Direct HDL Cholesterol Urine WBC (Auto) Urine Creatinine Urine Total Protein Vancomycin Trough Rheumatoid Factor Complement C4 Miscellaneous Test Crossmatch 09/07/16 09/07/16 09/07/16 09:20 11:43 11:43 WBC 19.4 H RBC Hgb 8.3 L Hct 26.4 L D MCV 72 L D MCH 22 L MCHC RDW 17.9 H Plt Count Lymph % (Auto) 8.5 L [place] % (Auto) Lymph # [place] # 1.0 H Baso # Seg Neutrophils % 85.8 H Seg Neuts % (Manual) Lymphocytes % (Manual) Monocytes % (Manual) Eosinophils % (Manual) Basophils % (Manual) Nucleated RBC % Seg Neutrophils # 16.6 H Seg Neutrophils # Man Lymphocytes # (Manual) Monocytes # (Manual) Eosinophils # (Manual) PT INR Fibrinogen dRVVT Confirm Interp Factor V Activity POC ABG pH POC ABG pCO2 POC ABG pO2 Sodium 134 L Potassium Chloride 97.2 L Carbon Dioxide 20 L BUN 58 H Creatinine 2.9 H Glucose 147 H POC Glucose Lactic Acid Calcium Phosphorus 2.40 L Magnesium 2.40 H Direct Bilirubin ALT Alkaline Phosphatase Troponin T C-Reactive Protein Total Protein 5.8 L Albumin 2.2 L Triglycerides Cholesterol LDL Cholesterol Direct HDL Cholesterol Urine WBC (Auto) Urine Creatinine Urine Total Protein Vancomycin Trough Rheumatoid Factor Complement C4 58 H Miscellaneous Test Crossmatch 09/07/16 09/07/16 09/07/16 11:50 16:00 17:31 WBC RBC Hgb Hct MCV MCH MCHC RDW Plt Count Lymph % (Auto) [place] % (Auto) Lymph # [place] # Baso # Seg Neutrophils % Seg Neuts % (Manual) Lymphocytes % (Manual) Monocytes % (Manual) Eosinophils % (Manual) Basophils % (Manual) Nucleated RBC % Seg Neutrophils # Seg Neutrophils # Man Lymphocytes # (Manual) Monocytes # (Manual) Eosinophils # (Manual) PT INR Fibrinogen dRVVT Confirm Interp Factor V Activity POC ABG pH POC ABG pCO2 POC ABG pO2 158 H Sodium Potassium Chloride Carbon Dioxide BUN Creatinine Glucose POC Glucose 175 H Lactic Acid Calcium Phosphorus Magnesium Direct Bilirubin ALT Alkaline Phosphatase Troponin T C-Reactive Protein Total Protein Albumin Triglycerides Cholesterol LDL Cholesterol Direct HDL Cholesterol Urine WBC (Auto) Urine Creatinine 66.3 H Urine Total Protein Vancomycin Trough Rheumatoid Factor Complement C4 Miscellaneous Test Crossmatch 09/07/16 09/08/16 09/08/16 23:50 05:46 06:18 WBC 17.8 H RBC 3.58 L Hgb 8.1 L Hct 25.5 L MCV 71 L MCH 23 L MCHC RDW 18.4 H Plt Count Lymph % (Auto) [place] % (Auto) Lymph # [place] # Baso # Seg Neutrophils % Seg Neuts % (Manual) 92.0 H Lymphocytes % (Manual) 6.0 L Monocytes % (Manual) Eosinophils % (Manual) Basophils % (Manual) Nucleated RBC % Seg Neutrophils # Seg Neutrophils # Man 16.4 H Lymphocytes # (Manual) 1.1 L Monocytes # (Manual) Eosinophils # (Manual) PT INR Fibrinogen dRVVT Confirm Interp Factor V Activity POC ABG pH POC ABG pCO2 34.3 L POC ABG pO2 71 L Sodium Potassium Chloride Carbon Dioxide BUN Creatinine Glucose POC Glucose 216 H Lactic Acid Calcium Phosphorus Magnesium Direct Bilirubin ALT Alkaline Phosphatase Troponin T C-Reactive Protein Total Protein Albumin Triglycerides Cholesterol LDL Cholesterol Direct HDL Cholesterol Urine WBC (Auto) Urine Creatinine Urine Total Protein Vancomycin Trough Rheumatoid Factor Complement C4 Miscellaneous Test Crossmatch 09/08/16 09/08/16 09/08/16 06:18 06:51 10:55 WBC RBC Hgb Hct MCV MCH MCHC RDW Plt Count Lymph % (Auto) [place] % (Auto) Lymph # [place] # Baso # Seg Neutrophils % Seg Neuts % (Manual) Lymphocytes % (Manual) Monocytes % (Manual) Eosinophils % (Manual) Basophils % (Manual) Nucleated RBC % Seg Neutrophils # Seg Neutrophils # Man Lymphocytes # (Manual) Monocytes # (Manual) Eosinophils # (Manual) PT INR Fibrinogen dRVVT Confirm Interp Factor V Activity POC ABG pH POC ABG pCO2 POC ABG pO2 Sodium 133 L Potassium Chloride 96.9 L Carbon Dioxide 20 L BUN 63 H Creatinine 2.7 H Glucose 195 H POC Glucose 204 H 169 H Lactic Acid Calcium Phosphorus Magnesium Direct Bilirubin ALT Alkaline Phosphatase Troponin T C-Reactive Protein Total Protein Albumin Triglycerides Cholesterol LDL Cholesterol Direct HDL Cholesterol Urine WBC (Auto) Urine Creatinine Urine Total Protein Vancomycin Trough Rheumatoid Factor Complement C4 Miscellaneous Test Crossmatch 09/08/16 09/08/16 09/08/16 11:48 11:48 11:48 WBC RBC Hgb Hct MCV MCH MCHC RDW Plt Count Lymph % (Auto) [place] % (Auto) Lymph # [place] # Baso # Seg Neutrophils % Seg Neuts % (Manual) Lymphocytes % (Manual) Monocytes % (Manual) Eosinophils % (Manual) Basophils % (Manual) Nucleated RBC % Seg Neutrophils # Seg Neutrophils # Man Lymphocytes # (Manual) Monocytes # (Manual) Eosinophils # (Manual) PT INR Fibrinogen 750 H dRVVT Confirm Interp Factor V Activity POC ABG pH POC ABG pCO2 POC ABG pO2 Sodium Potassium Chloride Carbon Dioxide BUN Creatinine Glucose POC Glucose Lactic Acid Calcium Phosphorus Magnesium Direct Bilirubin ALT Alkaline Phosphatase Troponin T C-Reactive Protein 15.70 H Total Protein Albumin Triglycerides Cholesterol LDL Cholesterol Direct HDL Cholesterol Urine WBC (Auto) Urine Creatinine Urine Total Protein Vancomycin Trough Rheumatoid Factor 24 H Complement C4 Miscellaneous Test Crossmatch 09/08/16 09/08/16 09/09/16 15:35 18:25 00:24 WBC RBC Hgb Hct MCV MCH MCHC RDW Plt Count Lymph % (Auto) [place] % (Auto) Lymph # [place] # Baso # Seg Neutrophils % Seg Neuts % (Manual) Lymphocytes % (Manual) Monocytes % (Manual) Eosinophils % (Manual) Basophils % (Manual) Nucleated RBC % Seg Neutrophils # Seg Neutrophils # Man Lymphocytes # (Manual) Monocytes # (Manual) Eosinophils # (Manual) PT INR Fibrinogen dRVVT Confirm Interp Factor V Activity 182 H POC ABG pH POC ABG pCO2 POC ABG pO2 Sodium Potassium Chloride Carbon Dioxide BUN Creatinine Glucose POC Glucose 184 H 216 H Lactic Acid Calcium Phosphorus Magnesium Direct Bilirubin ALT Alkaline Phosphatase Troponin T C-Reactive Protein Total Protein Albumin Triglycerides Cholesterol LDL Cholesterol Direct HDL Cholesterol Urine WBC (Auto) Urine Creatinine Urine Total Protein Vancomycin Trough Rheumatoid Factor Complement C4 Miscellaneous Test Crossmatch 09/09/16 09/09/16 09/09/16 03:00 03:00 04:04 WBC 27.9 H RBC Hgb 8.7 L Hct 28.1 L MCV 72 L MCH 22 L MCHC RDW 18.4 H Plt Count 485 H Lymph % (Auto) [place] % (Auto) Lymph # [place] # Baso # Seg Neutrophils % Seg Neuts % (Manual) 77.0 H Lymphocytes % (Manual) 9.0 L Monocytes % (Manual) Eosinophils % (Manual) Basophils % (Manual) Nucleated RBC % Seg Neutrophils # Seg Neutrophils # Man 21.5 H Lymphocytes # (Manual) Monocytes # (Manual) 2.0 H Eosinophils # (Manual) PT INR Fibrinogen dRVVT Confirm Interp Factor V Activity POC ABG pH POC ABG pCO2 POC ABG pO2 121 H Sodium 135 L Potassium Chloride 96.3 L Carbon Dioxide 21 L BUN 83 H Creatinine 3.0 H Glucose 135 H POC Glucose Lactic Acid Calcium Phosphorus Magnesium Direct Bilirubin ALT Alkaline Phosphatase Troponin T C-Reactive Protein Total Protein Albumin Triglycerides Cholesterol LDL Cholesterol Direct HDL Cholesterol Urine WBC (Auto) Urine Creatinine Urine Total Protein Vancomycin Trough Rheumatoid Factor Complement C4 Miscellaneous Test Crossmatch 09/09/16 09/09/16 09/09/16 05:41 11:55 14:13 WBC RBC Hgb Hct MCV MCH MCHC RDW Plt Count Lymph % (Auto) [place] % (Auto) Lymph # [place] # Baso # Seg Neutrophils % Seg Neuts % (Manual) Lymphocytes % (Manual) Monocytes % (Manual) Eosinophils % (Manual) Basophils % (Manual) Nucleated RBC % Seg Neutrophils # Seg Neutrophils # Man Lymphocytes # (Manual) Monocytes # (Manual) Eosinophils # (Manual) PT INR Fibrinogen dRVVT Confirm Interp Factor V Activity POC ABG pH POC ABG pCO2 POC ABG pO2 Sodium Potassium Chloride Carbon Dioxide BUN Creatinine Glucose POC Glucose 155 H 186 H Lactic Acid Calcium Phosphorus Magnesium Direct Bilirubin ALT Alkaline Phosphatase Troponin T C-Reactive Protein Total Protein Albumin Triglycerides Cholesterol LDL Cholesterol Direct HDL Cholesterol Urine WBC (Auto) 25.0 H Urine Creatinine Urine Total Protein Vancomycin Trough Rheumatoid Factor Complement C4 Miscellaneous Test Crossmatch 09/09/16 09/09/16 09/10/16 17:33 23:13 05:09 WBC RBC Hgb Hct MCV MCH MCHC RDW Plt Count Lymph % (Auto) [place] % (Auto) Lymph # [place] # Baso # Seg Neutrophils % Seg Neuts % (Manual) Lymphocytes % (Manual) Monocytes % (Manual) Eosinophils % (Manual) Basophils % (Manual) Nucleated RBC % Seg Neutrophils # Seg Neutrophils # Man Lymphocytes # (Manual) Monocytes # (Manual) Eosinophils # (Manual) PT INR Fibrinogen dRVVT Confirm Interp Factor V Activity POC ABG pH POC ABG pCO2 POC ABG pO2 74 L Sodium Potassium Chloride Carbon Dioxide BUN Creatinine Glucose POC Glucose 211 H 215 H Lactic Acid Calcium Phosphorus Magnesium Direct Bilirubin ALT Alkaline Phosphatase Troponin T C-Reactive Protein Total Protein Albumin Triglycerides Cholesterol LDL Cholesterol Direct HDL Cholesterol Urine WBC (Auto) Urine Creatinine Urine Total Protein Vancomycin Trough Rheumatoid Factor Complement C4 Miscellaneous Test Crossmatch 09/10/16 09/10/16 09/10/16 05:17 05:17 11:31 WBC 15.8 H RBC 3.25 L Hgb 7.3 L Hct 22.9 L MCV 71 L MCH 23 L MCHC RDW 18.4 H Plt Count Lymph % (Auto) [place] % (Auto) Lymph # [place] # Baso # Seg Neutrophils % Seg Neuts % (Manual) 91.0 H Lymphocytes % (Manual) 4.0 L Monocytes % (Manual) Eosinophils % (Manual) Basophils % (Manual) Nucleated RBC % Seg Neutrophils # Seg Neutrophils # Man 14.4 H Lymphocytes # (Manual) 0.6 L Monocytes # (Manual) Eosinophils # (Manual) PT INR Fibrinogen dRVVT Confirm Interp Factor V Activity POC ABG pH POC ABG pCO2 POC ABG pO2 Sodium Potassium Chloride Carbon Dioxide 21 L BUN 93 H Creatinine 2.9 H Glucose 146 H POC Glucose 188 H Lactic Acid Calcium 8.1 L Phosphorus Magnesium Direct Bilirubin ALT Alkaline Phosphatase Troponin T C-Reactive Protein Total Protein Albumin Triglycerides Cholesterol LDL Cholesterol Direct HDL Cholesterol Urine WBC (Auto) Urine Creatinine Urine Total Protein Vancomycin Trough Rheumatoid Factor Complement C4 Miscellaneous Test Crossmatch 09/10/16 09/10/16 09/10/16 13:17 17:20 23:32 WBC RBC Hgb Hct MCV MCH MCHC RDW Plt Count Lymph % (Auto) [place] % (Auto) Lymph # [place] # Baso # Seg Neutrophils % Seg Neuts % (Manual) Lymphocytes % (Manual) Monocytes % (Manual) Eosinophils % (Manual) Basophils % (Manual) Nucleated RBC % Seg Neutrophils # Seg Neutrophils # Man Lymphocytes # (Manual) Monocytes # (Manual) Eosinophils # (Manual) PT INR Fibrinogen dRVVT Confirm Interp Factor V Activity POC ABG pH POC ABG pCO2 POC ABG pO2 Sodium Potassium Chloride Carbon Dioxide BUN Creatinine Glucose POC Glucose 199 H 186 H Lactic Acid Calcium Phosphorus Magnesium Direct Bilirubin ALT Alkaline Phosphatase Troponin T C-Reactive Protein Total Protein Albumin Triglycerides Cholesterol LDL Cholesterol Direct HDL Cholesterol Urine WBC (Auto) Urine Creatinine Urine Total Protein Vancomycin Trough Rheumatoid Factor Complement C4 Miscellaneous Test Crossmatch See Detail 09/11/16 09/11/16 09/11/16 05:10 05:10 05:17 WBC 28.4 H RBC Hgb 9.2 L Hct 29.3 L D MCV 73 L MCH 23 L MCHC RDW 18.9 H Plt Count 452 H Lymph % (Auto) [place] % (Auto) Lymph # [place] # Baso # Seg Neutrophils % Seg Neuts % (Manual) 89.5 H Lymphocytes % (Manual) 2.0 L Monocytes % (Manual) Eosinophils % (Manual) Basophils % (Manual) Nucleated RBC % Seg Neutrophils # Seg Neutrophils # Man 25.4 H Lymphocytes # (Manual) 0.6 L Monocytes # (Manual) 1.3 H Eosinophils # (Manual) PT INR Fibrinogen dRVVT Confirm Interp Factor V Activity POC ABG pH POC ABG pCO2 POC ABG pO2 Sodium 136 L Potassium Chloride Carbon Dioxide 18 L BUN 107 H Creatinine 2.6 H Glucose 187 H POC Glucose 230 H Lactic Acid Calcium 8.3 L Phosphorus Magnesium Direct Bilirubin ALT Alkaline Phosphatase Troponin T C-Reactive Protein Total Protein Albumin Triglycerides Cholesterol LDL Cholesterol Direct HDL Cholesterol Urine WBC (Auto) Urine Creatinine Urine Total Protein Vancomycin Trough Rheumatoid Factor Complement C4 Miscellaneous Test Crossmatch 09/11/16 09/11/16 09/11/16 05:55 12:02 17:32 WBC RBC Hgb Hct MCV MCH MCHC RDW Plt Count Lymph % (Auto) [place] % (Auto) Lymph # [place] # Baso # Seg Neutrophils % Seg Neuts % (Manual) Lymphocytes % (Manual) Monocytes % (Manual) Eosinophils % (Manual) Basophils % (Manual) Nucleated RBC % Seg Neutrophils # Seg Neutrophils # Man Lymphocytes # (Manual) Monocytes # (Manual) Eosinophils # (Manual) PT INR Fibrinogen dRVVT Confirm Interp Factor V Activity POC ABG pH POC ABG pCO2 33.8 L POC ABG pO2 Sodium Potassium Chloride Carbon Dioxide BUN Creatinine Glucose POC Glucose 191 H 239 H Lactic Acid Calcium Phosphorus Magnesium Direct Bilirubin ALT Alkaline Phosphatase Troponin T C-Reactive Protein Total Protein Albumin Triglycerides Cholesterol LDL Cholesterol Direct HDL Cholesterol Urine WBC (Auto) Urine Creatinine Urine Total Protein Vancomycin Trough Rheumatoid Factor Complement C4 Miscellaneous Test Crossmatch 09/11/16 09/12/16 09/12/16 23:52 05:09 05:32 WBC RBC Hgb Hct MCV MCH MCHC RDW Plt Count Lymph % (Auto) [place] % (Auto) Lymph # [place] # Baso # Seg Neutrophils % Seg Neuts % (Manual) Lymphocytes % (Manual) Monocytes % (Manual) Eosinophils % (Manual) Basophils % (Manual) Nucleated RBC % Seg Neutrophils # Seg Neutrophils # Man Lymphocytes # (Manual) Monocytes # (Manual) Eosinophils # (Manual) PT INR Fibrinogen dRVVT Confirm Interp Factor V Activity POC ABG pH POC ABG pCO2 34.6 L POC ABG pO2 Sodium Potassium Chloride Carbon Dioxide BUN Creatinine Glucose POC Glucose 265 H 184 H Lactic Acid Calcium Phosphorus Magnesium Direct Bilirubin ALT Alkaline Phosphatase Troponin T C-Reactive Protein Total Protein Albumin Triglycerides Cholesterol LDL Cholesterol Direct HDL Cholesterol Urine WBC (Auto) Urine Creatinine Urine Total Protein Vancomycin Trough Rheumatoid Factor Complement C4 Miscellaneous Test Crossmatch 09/12/16 09/12/16 09/12/16 06:45 06:45 07:22 WBC 31.7 H RBC 3.54 L Hgb 8.3 L Hct 25.9 L MCV 73 L MCH 23 L MCHC RDW 18.9 H Plt Count Lymph % (Auto) [place] % (Auto) Lymph # [place] # Baso # Seg Neutrophils % Seg Neuts % (Manual) 88.5 H Lymphocytes % (Manual) 4.5 L Monocytes % (Manual) Eosinophils % (Manual) Basophils % (Manual) Nucleated RBC % Seg Neutrophils # Seg Neutrophils # Man 28.1 H Lymphocytes # (Manual) Monocytes # (Manual) 1.0 H Eosinophils # (Manual) PT INR Fibrinogen dRVVT Confirm Interp Factor V Activity POC ABG pH POC ABG pCO2 POC ABG pO2 Sodium Potassium Chloride Carbon Dioxide 20 L BUN 115 H Creatinine 2.7 H Glucose 165 H POC Glucose Lactic Acid Calcium 8.0 L Phosphorus Magnesium Direct Bilirubin ALT Alkaline Phosphatase Troponin T C-Reactive Protein Total Protein Albumin Triglycerides 217 H Cholesterol LDL Cholesterol Direct HDL Cholesterol Urine WBC (Auto) Urine Creatinine Urine Total Protein Vancomycin Trough Rheumatoid Factor Complement C4 Miscellaneous Test Crossmatch 09/12/16 09/12/16 09/12/16 07:22 09:59 12:21 WBC RBC Hgb Hct MCV MCH MCHC RDW Plt Count Lymph % (Auto) [place] % (Auto) Lymph # [place] # Baso # Seg Neutrophils % Seg Neuts % (Manual) Lymphocytes % (Manual) Monocytes % (Manual) Eosinophils % (Manual) Basophils % (Manual) Nucleated RBC % Seg Neutrophils # Seg Neutrophils # Man Lymphocytes # (Manual) Monocytes # (Manual) Eosinophils # (Manual) PT INR Fibrinogen dRVVT Confirm Interp Positive H Factor V Activity POC ABG pH POC ABG pCO2 POC ABG pO2 Sodium Potassium Chloride Carbon Dioxide BUN Creatinine Glucose POC Glucose 224 H Lactic Acid Calcium Phosphorus Magnesium Direct Bilirubin ALT Alkaline Phosphatase Troponin T C-Reactive Protein 1.70 H Total Protein Albumin Triglycerides Cholesterol LDL Cholesterol Direct HDL Cholesterol Urine WBC (Auto) Urine Creatinine Urine Total Protein Vancomycin Trough Rheumatoid Factor Complement C4 Miscellaneous Test Crossmatch 09/12/16 09/12/16 09/13/16 16:51 23:28 04:00 WBC 45.0 H* RBC Hgb 9.4 L Hct MCV 75 L MCH 23 L MCHC RDW 19.0 H Plt Count 470 H Lymph % (Auto) [place] % (Auto) Lymph # [place] # Baso # Seg Neutrophils % Seg Neuts % (Manual) 89.0 H Lymphocytes % (Manual) 5.0 L Monocytes % (Manual) Eosinophils % (Manual) Basophils % (Manual) Nucleated RBC % Seg Neutrophils # Seg Neutrophils # Man 40.1 H Lymphocytes # (Manual) Monocytes # (Manual) Eosinophils # (Manual) PT INR Fibrinogen dRVVT Confirm Interp Factor V Activity POC ABG pH POC ABG pCO2 POC ABG pO2 Sodium Potassium Chloride Carbon Dioxide BUN Creatinine Glucose POC Glucose 169 H 150 H Lactic Acid Calcium Phosphorus Magnesium Direct Bilirubin ALT Alkaline Phosphatase Troponin T C-Reactive Protein Total Protein Albumin Triglycerides Cholesterol LDL Cholesterol Direct HDL Cholesterol Urine WBC (Auto) Urine Creatinine Urine Total Protein Vancomycin Trough Rheumatoid Factor Complement C4 Miscellaneous Test Crossmatch 09/13/16 09/13/16 09/13/16 04:00 11:26 17:31 WBC RBC Hgb Hct MCV MCH MCHC RDW Plt Count Lymph % (Auto) [place] % (Auto) Lymph # [place] # Baso # Seg Neutrophils % Seg Neuts % (Manual) Lymphocytes % (Manual) Monocytes % (Manual) Eosinophils % (Manual) Basophils % (Manual) Nucleated RBC % Seg Neutrophils # Seg Neutrophils # Man Lymphocytes # (Manual) Monocytes # (Manual) Eosinophils # (Manual) PT INR Fibrinogen dRVVT Confirm Interp Factor V Activity POC ABG pH POC ABG pCO2 POC ABG pO2 Sodium Potassium Chloride Carbon Dioxide 20 L BUN 116 H Creatinine 3.0 H Glucose 172 H POC Glucose 140 H 183 H Lactic Acid Calcium Phosphorus Magnesium Direct Bilirubin ALT Alkaline Phosphatase Troponin T C-Reactive Protein Total Protein 6.2 L Albumin 2.9 L Triglycerides Cholesterol LDL Cholesterol Direct HDL Cholesterol Urine WBC (Auto) Urine Creatinine Urine Total Protein Vancomycin Trough Rheumatoid Factor Complement C4 Miscellaneous Test Crossmatch 09/13/16 09/14/16 09/14/16 23:23 04:06 04:07 WBC 29.4 H RBC Hgb 8.9 L Hct 27.3 L MCV 75 L MCH 24 L MCHC RDW 19.1 H Plt Count Lymph % (Auto) [place] % (Auto) Lymph # [place] # Baso # Seg Neutrophils % Seg Neuts % (Manual) 84.0 H Lymphocytes % (Manual) 6.0 L Monocytes % (Manual) 9.0 H Eosinophils % (Manual) Basophils % (Manual) Nucleated RBC % Seg Neutrophils # Seg Neutrophils # Man 24.7 H Lymphocytes # (Manual) Monocytes # (Manual) 2.6 H Eosinophils # (Manual) PT INR Fibrinogen dRVVT Confirm Interp Factor V Activity POC ABG pH 7.342 L POC ABG pCO2 POC ABG pO2 116 H Sodium Potassium Chloride Carbon Dioxide BUN Creatinine Glucose POC Glucose 154 H Lactic Acid Calcium Phosphorus Magnesium Direct Bilirubin ALT Alkaline Phosphatase Troponin T C-Reactive Protein Total Protein Albumin Triglycerides Cholesterol LDL Cholesterol Direct HDL Cholesterol Urine WBC (Auto) Urine Creatinine Urine Total Protein Vancomycin Trough Rheumatoid Factor Complement C4 Miscellaneous Test Crossmatch 09/14/16 09/14/16 09/14/16 04:07 05:29 12:19 WBC RBC Hgb Hct MCV MCH MCHC RDW Plt Count Lymph % (Auto) [place] % (Auto) Lymph # [place] # Baso # Seg Neutrophils % Seg Neuts % (Manual) Lymphocytes % (Manual) Monocytes % (Manual) Eosinophils % (Manual) Basophils % (Manual) Nucleated RBC % Seg Neutrophils # Seg Neutrophils # Man Lymphocytes # (Manual) Monocytes # (Manual) Eosinophils # (Manual) PT INR Fibrinogen dRVVT Confirm Interp Factor V Activity POC ABG pH POC ABG pCO2 POC ABG pO2 Sodium 136 L Potassium Chloride Carbon Dioxide 18 L BUN 121 H Creatinine 2.8 H Glucose 214 H POC Glucose 239 H 181 H Lactic Acid Calcium Phosphorus Magnesium Direct Bilirubin ALT Alkaline Phosphatase Troponin T C-Reactive Protein Total Protein Albumin Triglycerides Cholesterol LDL Cholesterol Direct HDL Cholesterol Urine WBC (Auto) Urine Creatinine Urine Total Protein Vancomycin Trough Rheumatoid Factor Complement C4 Miscellaneous Test Crossmatch 09/14/16 09/14/16 09/15/16 18:12 23:37 05:00 WBC 26.1 H RBC 3.05 L Hgb 7.2 L Hct 22.9 L MCV 75 L MCH 24 L MCHC RDW 19.0 H Plt Count Lymph % (Auto) [place] % (Auto) Lymph # [place] # Baso # Seg Neutrophils % Seg Neuts % (Manual) Lymphocytes % (Manual) Monocytes % (Manual) Eosinophils % (Manual) Basophils % (Manual) Nucleated RBC % Seg Neutrophils # Seg Neutrophils # Man Lymphocytes # (Manual) Monocytes # (Manual) Eosinophils # (Manual) PT INR Fibrinogen dRVVT Confirm Interp Factor V Activity POC ABG pH POC ABG pCO2 POC ABG pO2 Sodium Potassium Chloride Carbon Dioxide BUN Creatinine Glucose POC Glucose 266 H 154 H Lactic Acid Calcium Phosphorus Magnesium Direct Bilirubin ALT Alkaline Phosphatase Troponin T C-Reactive Protein Total Protein Albumin Triglycerides Cholesterol LDL Cholesterol Direct HDL Cholesterol Urine WBC (Auto) Urine Creatinine Urine Total Protein Vancomycin Trough Rheumatoid Factor Complement C4 Miscellaneous Test Crossmatch 09/15/16 09/15/16 09/15/16 05:00 05:17 12:45 WBC RBC Hgb Hct MCV MCH MCHC RDW Plt Count Lymph % (Auto) [place] % (Auto) Lymph # [place] # Baso # Seg Neutrophils % Seg Neuts % (Manual) Lymphocytes % (Manual) Monocytes % (Manual) Eosinophils % (Manual) Basophils % (Manual) Nucleated RBC % Seg Neutrophils # Seg Neutrophils # Man Lymphocytes # (Manual) Monocytes # (Manual) Eosinophils # (Manual) PT INR Fibrinogen dRVVT Confirm Interp Factor V Activity POC ABG pH POC ABG pCO2 POC ABG pO2 Sodium Potassium 5.2 H Chloride Carbon Dioxide 18 L BUN 139 H Creatinine 3.7 H Glucose 227 H POC Glucose 226 H 244 H Lactic Acid Calcium 8.3 L Phosphorus Magnesium Direct Bilirubin ALT Alkaline Phosphatase Troponin T C-Reactive Protein Total Protein Albumin Triglycerides Cholesterol LDL Cholesterol Direct HDL Cholesterol Urine WBC (Auto) Urine Creatinine Urine Total Protein Vancomycin Trough Rheumatoid Factor Complement C4 Miscellaneous Test Crossmatch 09/15/16 09/15/16 09/15/16 14:32 17:33 23:35 WBC RBC Hgb Hct MCV MCH MCHC RDW Plt Count Lymph % (Auto) [place] % (Auto) Lymph # [place] # Baso # Seg Neutrophils % Seg Neuts % (Manual) Lymphocytes % (Manual) Monocytes % (Manual) Eosinophils % (Manual) Basophils % (Manual) Nucleated RBC % Seg Neutrophils # Seg Neutrophils # Man Lymphocytes # (Manual) Monocytes # (Manual) Eosinophils # (Manual) PT INR Fibrinogen dRVVT Confirm Interp Factor V Activity POC ABG pH POC ABG pCO2 27.7 L POC ABG pO2 120 H Sodium Potassium Chloride Carbon Dioxide BUN Creatinine Glucose POC Glucose 232 H 167 H Lactic Acid Calcium Phosphorus Magnesium Direct Bilirubin ALT Alkaline Phosphatase Troponin T C-Reactive Protein Total Protein Albumin Triglycerides Cholesterol LDL Cholesterol Direct HDL Cholesterol Urine WBC (Auto) Urine Creatinine Urine Total Protein Vancomycin Trough Rheumatoid Factor Complement C4 Miscellaneous Test Crossmatch 09/16/16 09/16/16 09/16/16 03:58 10:27 10:27 WBC 19.0 H RBC 2.77 L Hgb 6.5 L Hct 20.9 L MCV 76 L MCH 23 L MCHC RDW 19.3 H Plt Count Lymph % (Auto) 11.0 L [place] % (Auto) Lymph # [place] # 1.1 H Baso # Seg Neutrophils % 82.5 H Seg Neuts % (Manual) Lymphocytes % (Manual) Monocytes % (Manual) Eosinophils % (Manual) Basophils % (Manual) Nucleated RBC % Seg Neutrophils # 15.7 H Seg Neutrophils # Man Lymphocytes # (Manual) Monocytes # (Manual) Eosinophils # (Manual) PT INR Fibrinogen dRVVT Confirm Interp Factor V Activity POC ABG pH POC ABG pCO2 POC ABG pO2 Sodium Potassium Chloride 109.3 H Carbon Dioxide 18 L BUN 139 H Creatinine 4.1 H Glucose 144 H POC Glucose 146 H Lactic Acid Calcium 8.1 L Phosphorus Magnesium Direct Bilirubin ALT Alkaline Phosphatase Troponin T C-Reactive Protein Total Protein Albumin Triglycerides Cholesterol LDL Cholesterol Direct HDL Cholesterol Urine WBC (Auto) Urine Creatinine Urine Total Protein Vancomycin Trough Rheumatoid Factor Complement C4 Miscellaneous Test Crossmatch 09/16/16 09/16/16 09/16/16 12:04 12:10 13:55 WBC RBC Hgb Hct MCV MCH MCHC RDW Plt Count Lymph % (Auto) [place] % (Auto) Lymph # [place] # Baso # Seg Neutrophils % Seg Neuts % (Manual) Lymphocytes % (Manual) Monocytes % (Manual) Eosinophils % (Manual) Basophils % (Manual) Nucleated RBC % Seg Neutrophils # Seg Neutrophils # Man Lymphocytes # (Manual) Monocytes # (Manual) Eosinophils # (Manual) PT INR Fibrinogen dRVVT Confirm Interp Factor V Activity POC ABG pH POC ABG pCO2 32.9 L POC ABG pO2 Sodium Potassium Chloride Carbon Dioxide BUN Creatinine Glucose POC Glucose 185 H Lactic Acid Calcium Phosphorus Magnesium Direct Bilirubin ALT Alkaline Phosphatase Troponin T C-Reactive Protein Total Protein Albumin Triglycerides Cholesterol LDL Cholesterol Direct HDL Cholesterol Urine WBC (Auto) Urine Creatinine Urine Total Protein Vancomycin Trough Rheumatoid Factor Complement C4 Miscellaneous Test Crossmatch See Detail 09/16/16 09/16/16 09/16/16 17:55 19:19 23:48 WBC RBC Hgb Hct MCV MCH MCHC RDW Plt Count Lymph % (Auto) [place] % (Auto) Lymph # [place] # Baso # Seg Neutrophils % Seg Neuts % (Manual) Lymphocytes % (Manual) Monocytes % (Manual) Eosinophils % (Manual) Basophils % (Manual) Nucleated RBC % Seg Neutrophils # Seg Neutrophils # Man Lymphocytes # (Manual) Monocytes # (Manual) Eosinophils # (Manual) PT INR Fibrinogen dRVVT Confirm Interp Factor V Activity POC ABG pH POC ABG pCO2 POC ABG pO2 Sodium Potassium Chloride Carbon Dioxide BUN Creatinine Glucose POC Glucose 222 H 107 H Lactic Acid Calcium Phosphorus Magnesium Direct Bilirubin ALT Alkaline Phosphatase Troponin T C-Reactive Protein Total Protein Albumin Triglycerides Cholesterol LDL Cholesterol Direct HDL Cholesterol Urine WBC (Auto) Urine Creatinine 47.4 H Urine Total Protein 16 H Vancomycin Trough Rheumatoid Factor Complement C4 Miscellaneous Test Crossmatch 09/17/16 09/17/16 09/17/16 03:45 03:45 04:55 WBC 19.6 H RBC 3.41 L Hgb 8.5 L Hct 26.7 L MCV 78 L MCH 25 L MCHC RDW 19.9 H Plt Count Lymph % (Auto) 9.3 L [place] % (Auto) Lymph # [place] # 1.2 H Baso # Seg Neutrophils % 83.9 H Seg Neuts % (Manual) Lymphocytes % (Manual) Monocytes % (Manual) Eosinophils % (Manual) Basophils % (Manual) Nucleated RBC % Seg Neutrophils # 16.4 H Seg Neutrophils # Man Lymphocytes # (Manual) Monocytes # (Manual) Eosinophils # (Manual) PT INR Fibrinogen dRVVT Confirm Interp Factor V Activity POC ABG pH POC ABG pCO2 POC ABG pO2 Sodium 146 H Potassium 5.1 H Chloride 110.9 H Carbon Dioxide 16 L BUN 146 H Creatinine 4.0 H Glucose 108 H POC Glucose 133 H Lactic Acid Calcium Phosphorus Magnesium 3.00 H Direct Bilirubin ALT Alkaline Phosphatase Troponin T C-Reactive Protein Total Protein Albumin Triglycerides Cholesterol LDL Cholesterol Direct HDL Cholesterol Urine WBC (Auto) Urine Creatinine Urine Total Protein Vancomycin Trough Rheumatoid Factor Complement C4 Miscellaneous Test Crossmatch 09/17/16 09/17/16 09/17/16 11:15 17:33 23:47 WBC RBC Hgb Hct MCV MCH MCHC RDW Plt Count Lymph % (Auto) [place] % (Auto) Lymph # [place] # Baso # Seg Neutrophils % Seg Neuts % (Manual) Lymphocytes % (Manual) Monocytes % (Manual) Eosinophils % (Manual) Basophils % (Manual) Nucleated RBC % Seg Neutrophils # Seg Neutrophils # Man Lymphocytes # (Manual) Monocytes # (Manual) Eosinophils # (Manual) PT INR Fibrinogen dRVVT Confirm Interp Factor V Activity POC ABG pH POC ABG pCO2 POC ABG pO2 Sodium Potassium Chloride Carbon Dioxide BUN Creatinine Glucose POC Glucose 176 H 246 H 148 H Lactic Acid Calcium Phosphorus Magnesium Direct Bilirubin ALT Alkaline Phosphatase Troponin T C-Reactive Protein Total Protein Albumin Triglycerides Cholesterol LDL Cholesterol Direct HDL Cholesterol Urine WBC (Auto) Urine Creatinine Urine Total Protein Vancomycin Trough Rheumatoid Factor Complement C4 Miscellaneous Test Crossmatch 09/18/16 09/18/16 09/18/16 05:33 08:31 08:31 WBC 18.0 H RBC 3.17 L Hgb 9.0 L Hct 25.7 L MCV MCH MCHC 35 H RDW 20.4 H Plt Count Lymph % (Auto) [place] % (Auto) Lymph # [place] # Baso # Seg Neutrophils % Seg Neuts % (Manual) Lymphocytes % (Manual) Monocytes % (Manual) Eosinophils % (Manual) Basophils % (Manual) Nucleated RBC % Seg Neutrophils # Seg Neutrophils # Man Lymphocytes # (Manual) Monocytes # (Manual) Eosinophils # (Manual) PT INR Fibrinogen dRVVT Confirm Interp Factor V Activity POC ABG pH POC ABG pCO2 POC ABG pO2 Sodium Potassium Chloride Carbon Dioxide 15 L BUN 124 H Creatinine 3.8 H Glucose POC Glucose 120 H Lactic Acid Calcium 8.1 L Phosphorus Magnesium Direct Bilirubin ALT Alkaline Phosphatase Troponin T C-Reactive Protein Total Protein Albumin Triglycerides Cholesterol LDL Cholesterol Direct HDL Cholesterol Urine WBC (Auto) Urine Creatinine Urine Total Protein Vancomycin Trough Rheumatoid Factor Complement C4 Miscellaneous Test Crossmatch 09/18/16 09/18/16 09/18/16 12:03 15:34 17:50 WBC RBC Hgb Hct MCV MCH MCHC RDW Plt Count Lymph % (Auto) [place] % (Auto) Lymph # [place] # Baso # Seg Neutrophils % Seg Neuts % (Manual) Lymphocytes % (Manual) Monocytes % (Manual) Eosinophils % (Manual) Basophils % (Manual) Nucleated RBC % Seg Neutrophils # Seg Neutrophils # Man Lymphocytes # (Manual) Monocytes # (Manual) Eosinophils # (Manual) PT INR Fibrinogen dRVVT Confirm Interp Factor V Activity POC ABG pH POC ABG pCO2 25.7 L POC ABG pO2 66 L Sodium Potassium Chloride Carbon Dioxide BUN Creatinine Glucose POC Glucose 156 H 220 H Lactic Acid Calcium Phosphorus Magnesium Direct Bilirubin ALT Alkaline Phosphatase Troponin T C-Reactive Protein Total Protein Albumin Triglycerides Cholesterol LDL Cholesterol Direct HDL Cholesterol Urine WBC (Auto) Urine Creatinine Urine Total Protein Vancomycin Trough Rheumatoid Factor Complement C4 Miscellaneous Test Crossmatch 09/19/16 09/19/16 09/19/16 06:21 09:50 09:50 WBC 17.1 H RBC 3.49 L Hgb 9.0 L Hct 28.1 L MCV MCH 26 L MCHC RDW 20.8 H Plt Count Lymph % (Auto) 11.5 L [place] % (Auto) 7.5 H Lymph # [place] # 1.3 H Baso # Seg Neutrophils % 79.8 H Seg Neuts % (Manual) Lymphocytes % (Manual) Monocytes % (Manual) Eosinophils % (Manual) Basophils % (Manual) Nucleated RBC % Seg Neutrophils # 13.7 H Seg Neutrophils # Man Lymphocytes # (Manual) Monocytes # (Manual) Eosinophils # (Manual) PT INR Fibrinogen dRVVT Confirm Interp Factor V Activity POC ABG pH POC ABG pCO2 POC ABG pO2 Sodium Potassium Chloride 108.6 H Carbon Dioxide 15 L BUN 125 H Creatinine 4.1 H Glucose 124 H POC Glucose 119 H Lactic Acid Calcium Phosphorus Magnesium Direct Bilirubin ALT Alkaline Phosphatase Troponin T C-Reactive Protein Total Protein Albumin Triglycerides Cholesterol LDL Cholesterol Direct HDL Cholesterol Urine WBC (Auto) Urine Creatinine Urine Total Protein Vancomycin Trough Rheumatoid Factor Complement C4 Miscellaneous Test Crossmatch 09/19/16 09/19/16 09/19/16 11:25 17:53 23:36 WBC RBC Hgb Hct MCV MCH MCHC RDW Plt Count Lymph % (Auto) [place] % (Auto) Lymph # [place] # Baso # Seg Neutrophils % Seg Neuts % (Manual) Lymphocytes % (Manual) Monocytes % (Manual) Eosinophils % (Manual) Basophils % (Manual) Nucleated RBC % Seg Neutrophils # Seg Neutrophils # Man Lymphocytes # (Manual) Monocytes # (Manual) Eosinophils # (Manual) PT INR Fibrinogen dRVVT Confirm Interp Factor V Activity POC ABG pH POC ABG pCO2 POC ABG pO2 Sodium Potassium Chloride Carbon Dioxide BUN Creatinine Glucose POC Glucose 160 H 245 H 121 H Lactic Acid Calcium Phosphorus Magnesium Direct Bilirubin ALT Alkaline Phosphatase Troponin T C-Reactive Protein Total Protein Albumin Triglycerides Cholesterol LDL Cholesterol Direct HDL Cholesterol Urine WBC (Auto) Urine Creatinine Urine Total Protein Vancomycin Trough Rheumatoid Factor Complement C4 Miscellaneous Test Crossmatch 09/20/16 09/20/16 09/20/16 04:10 04:10 04:10 WBC 17.0 H RBC 3.21 L Hgb 8.2 L Hct 25.5 L MCV MCH 26 L MCHC RDW 20.9 H Plt Count Lymph % (Auto) [place] % (Auto) Lymph # [place] # Baso # Seg Neutrophils % Seg Neuts % (Manual) Lymphocytes % (Manual) Monocytes % (Manual) Eosinophils % (Manual) Basophils % (Manual) Nucleated RBC % Seg Neutrophils # Seg Neutrophils # Man Lymphocytes # (Manual) Monocytes # (Manual) Eosinophils # (Manual) PT INR Fibrinogen dRVVT Confirm Interp Factor V Activity POC ABG pH POC ABG pCO2 POC ABG pO2 Sodium Potassium Chloride 111.0 H Carbon Dioxide 16 L BUN 129 H Creatinine 3.7 H Glucose 115 H POC Glucose Lactic Acid Calcium 8.2 L Phosphorus Magnesium Direct Bilirubin ALT Alkaline Phosphatase Troponin T C-Reactive Protein Total Protein Albumin Triglycerides 243 H Cholesterol LDL Cholesterol Direct HDL Cholesterol Urine WBC (Auto) Urine Creatinine Urine Total Protein Vancomycin Trough Rheumatoid Factor Complement C4 Miscellaneous Test Crossmatch 09/20/16 09/20/16 09/20/16 05:40 11:52 16:50 WBC RBC Hgb Hct MCV MCH MCHC RDW Plt Count Lymph % (Auto) [place] % (Auto) Lymph # [place] # Baso # Seg Neutrophils % Seg Neuts % (Manual) Lymphocytes % (Manual) Monocytes % (Manual) Eosinophils % (Manual) Basophils % (Manual) Nucleated RBC % Seg Neutrophils # Seg Neutrophils # Man Lymphocytes # (Manual) Monocytes # (Manual) Eosinophils # (Manual) PT INR Fibrinogen dRVVT Confirm Interp Factor V Activity POC ABG pH POC ABG pCO2 POC ABG pO2 Sodium Potassium Chloride Carbon Dioxide BUN Creatinine Glucose POC Glucose 131 H 183 H 236 H Lactic Acid Calcium Phosphorus Magnesium Direct Bilirubin ALT Alkaline Phosphatase Troponin T C-Reactive Protein Total Protein Albumin Triglycerides Cholesterol LDL Cholesterol Direct HDL Cholesterol Urine WBC (Auto) Urine Creatinine Urine Total Protein Vancomycin Trough Rheumatoid Factor Complement C4 Miscellaneous Test Crossmatch 09/20/16 09/21/16 09/21/16 23:51 03:30 04:44 WBC RBC Hgb Hct MCV MCH MCHC RDW Plt Count Lymph % (Auto) [place] % (Auto) Lymph # [place] # Baso # Seg Neutrophils % Seg Neuts % (Manual) Lymphocytes % (Manual) Monocytes % (Manual) Eosinophils % (Manual) Basophils % (Manual) Nucleated RBC % Seg Neutrophils # Seg Neutrophils # Man Lymphocytes # (Manual) Monocytes # (Manual) Eosinophils # (Manual) PT INR Fibrinogen dRVVT Confirm Interp Factor V Activity POC ABG pH POC ABG pCO2 POC ABG pO2 Sodium Potassium Chloride Carbon Dioxide BUN Creatinine Glucose POC Glucose 114 H 141 H Lactic Acid Calcium Phosphorus Magnesium 2.70 H Direct Bilirubin ALT Alkaline Phosphatase Troponin T C-Reactive Protein Total Protein Albumin Triglycerides Cholesterol LDL Cholesterol Direct HDL Cholesterol Urine WBC (Auto) Urine Creatinine Urine Total Protein Vancomycin Trough Rheumatoid Factor Complement C4 Miscellaneous Test Crossmatch 09/21/16 09/21/16 09/21/16 07:45 07:45 10:01 WBC 13.8 H RBC 2.94 L Hgb 7.5 L Hct 23.5 L MCV MCH 26 L MCHC RDW 21.2 H Plt Count Lymph % (Auto) 6.9 L [place] % (Auto) 9.4 H Lymph # 0.9 L [place] # 1.3 H Baso # Seg Neutrophils % 83.2 H Seg Neuts % (Manual) Lymphocytes % (Manual) Monocytes % (Manual) Eosinophils % (Manual) Basophils % (Manual) Nucleated RBC % Seg Neutrophils # 11.5 H Seg Neutrophils # Man Lymphocytes # (Manual) Monocytes # (Manual) Eosinophils # (Manual) PT INR Fibrinogen dRVVT Confirm Interp Factor V Activity POC ABG pH 7.308 L POC ABG pCO2 31.9 L POC ABG pO2 148 H Sodium 147 H Potassium Chloride 114.2 H Carbon Dioxide 15 L BUN 120 H Creatinine 3.9 H Glucose 156 H POC Glucose Lactic Acid Calcium 8.2 L Phosphorus Magnesium Direct Bilirubin ALT Alkaline Phosphatase Troponin T C-Reactive Protein Total Protein Albumin Triglycerides Cholesterol LDL Cholesterol Direct HDL Cholesterol Urine WBC (Auto) Urine Creatinine Urine Total Protein Vancomycin Trough Rheumatoid Factor Complement C4 Miscellaneous Test Crossmatch 09/21/16 09/21/16 09/21/16 12:00 12:03 13:00 WBC RBC Hgb Hct MCV MCH MCHC RDW Plt Count Lymph % (Auto) [place] % (Auto) Lymph # [place] # Baso # Seg Neutrophils % Seg Neuts % (Manual) Lymphocytes % (Manual) Monocytes % (Manual) Eosinophils % (Manual) Basophils % (Manual) Nucleated RBC % Seg Neutrophils # Seg Neutrophils # Man Lymphocytes # (Manual) Monocytes # (Manual) Eosinophils # (Manual) PT INR Fibrinogen dRVVT Confirm Interp Factor V Activity POC ABG pH POC ABG pCO2 POC ABG pO2 Sodium Potassium Chloride Carbon Dioxide BUN Creatinine Glucose POC Glucose 163 H Lactic Acid Calcium Phosphorus Magnesium Direct Bilirubin ALT Alkaline Phosphatase Troponin T C-Reactive Protein Total Protein Albumin Triglycerides Cholesterol LDL Cholesterol Direct HDL Cholesterol Urine WBC (Auto) Urine Creatinine 54.8 H Urine Total Protein Vancomycin Trough 2.3 L Rheumatoid Factor Complement C4 Miscellaneous Test Crossmatch 09/21/16 09/21/16 09/22/16 16:51 23:17 06:27 WBC RBC Hgb Hct MCV MCH MCHC RDW Plt Count Lymph % (Auto) [place] % (Auto) Lymph # [place] # Baso # Seg Neutrophils % Seg Neuts % (Manual) Lymphocytes % (Manual) Monocytes % (Manual) Eosinophils % (Manual) Basophils % (Manual) Nucleated RBC % Seg Neutrophils # Seg Neutrophils # Man Lymphocytes # (Manual) Monocytes # (Manual) Eosinophils # (Manual) PT INR Fibrinogen dRVVT Confirm Interp Factor V Activity POC ABG pH POC ABG pCO2 POC ABG pO2 Sodium Potassium Chloride Carbon Dioxide BUN Creatinine Glucose POC Glucose 206 H 114 H 115 H Lactic Acid Calcium Phosphorus Magnesium Direct Bilirubin ALT Alkaline Phosphatase Troponin T C-Reactive Protein Total Protein Albumin Triglycerides Cholesterol LDL Cholesterol Direct HDL Cholesterol Urine WBC (Auto) Urine Creatinine Urine Total Protein Vancomycin Trough Rheumatoid Factor Complement C4 Miscellaneous Test Crossmatch 09/22/16 09/22/16 09/22/16 07:50 07:50 12:00 WBC 17.8 H RBC 3.04 L Hgb 8.0 L Hct 24.7 L MCV MCH 26 L MCHC RDW 21.6 H Plt Count Lymph % (Auto) [place] % (Auto) Lymph # [place] # Baso # Seg Neutrophils % Seg Neuts % (Manual) Lymphocytes % (Manual) Monocytes % (Manual) Eosinophils % (Manual) Basophils % (Manual) Nucleated RBC % Seg Neutrophils # Seg Neutrophils # Man Lymphocytes # (Manual) Monocytes # (Manual) Eosinophils # (Manual) PT INR Fibrinogen dRVVT Confirm Interp Factor V Activity POC ABG pH POC ABG pCO2 POC ABG pO2 Sodium 150 H Potassium Chloride 118.2 H Carbon Dioxide 14 L BUN 111 H Creatinine 3.7 H Glucose 157 H POC Glucose 183 H Lactic Acid Calcium Phosphorus Magnesium Direct Bilirubin ALT Alkaline Phosphatase Troponin T C-Reactive Protein Total Protein Albumin Triglycerides Cholesterol LDL Cholesterol Direct HDL Cholesterol Urine WBC (Auto) Urine Creatinine Urine Total Protein Vancomycin Trough Rheumatoid Factor Complement C4 Miscellaneous Test Crossmatch 09/22/16 09/22/16 09/23/16 17:29 23:10 05:00 WBC 19.2 H RBC 3.13 L Hgb 8.0 L Hct 25.2 L MCV MCH 26 L MCHC RDW 22.1 H Plt Count Lymph % (Auto) [place] % (Auto) Lymph # [place] # Baso # Seg Neutrophils % Seg Neuts % (Manual) 92.0 H Lymphocytes % (Manual) 3.0 L Monocytes % (Manual) Eosinophils % (Manual) Basophils % (Manual) Nucleated RBC % Seg Neutrophils # Seg Neutrophils # Man 17.7 H Lymphocytes # (Manual) 0.6 L Monocytes # (Manual) Eosinophils # (Manual) PT INR Fibrinogen dRVVT Confirm Interp Factor V Activity POC ABG pH POC ABG pCO2 POC ABG pO2 Sodium Potassium Chloride Carbon Dioxide BUN Creatinine Glucose POC Glucose 197 H 169 H Lactic Acid Calcium Phosphorus Magnesium Direct Bilirubin ALT Alkaline Phosphatase Troponin T C-Reactive Protein Total Protein Albumin Triglycerides Cholesterol LDL Cholesterol Direct HDL Cholesterol Urine WBC (Auto) Urine Creatinine Urine Total Protein Vancomycin Trough Rheumatoid Factor Complement C4 Miscellaneous Test Crossmatch 09/23/16 09/23/16 09/23/16 05:00 05:00 05:10 WBC RBC Hgb Hct MCV MCH MCHC RDW Plt Count Lymph % (Auto) [place] % (Auto) Lymph # [place] # Baso # Seg Neutrophils % Seg Neuts % (Manual) Lymphocytes % (Manual) Monocytes % (Manual) Eosinophils % (Manual) Basophils % (Manual) Nucleated RBC % Seg Neutrophils # Seg Neutrophils # Man Lymphocytes # (Manual) Monocytes # (Manual) Eosinophils # (Manual) PT INR Fibrinogen dRVVT Confirm Interp Factor V Activity POC ABG pH POC ABG pCO2 POC ABG pO2 Sodium 147 H Potassium 3.2 L Chloride 115.7 H Carbon Dioxide 13 L BUN 111 H Creatinine 3.8 H Glucose 194 H POC Glucose 188 H Lactic Acid Calcium 7.3 L D Phosphorus Magnesium Direct Bilirubin ALT Alkaline Phosphatase Troponin T C-Reactive Protein 3.20 H Total Protein Albumin Triglycerides Cholesterol LDL Cholesterol Direct HDL Cholesterol Urine WBC (Auto) Urine Creatinine Urine Total Protein Vancomycin Trough Rheumatoid Factor Complement C4 Miscellaneous Test Crossmatch 09/23/16 09/23/16 09/23/16 11:37 12:29 18:01 WBC RBC Hgb Hct MCV MCH MCHC RDW Plt Count Lymph % (Auto) [place] % (Auto) Lymph # [place] # Baso # Seg Neutrophils % Seg Neuts % (Manual) Lymphocytes % (Manual) Monocytes % (Manual) Eosinophils % (Manual) Basophils % (Manual) Nucleated RBC % Seg Neutrophils # Seg Neutrophils # Man Lymphocytes # (Manual) Monocytes # (Manual) Eosinophils # (Manual) PT INR Fibrinogen dRVVT Confirm Interp Factor V Activity POC ABG pH POC ABG pCO2 18.9 L POC ABG pO2 143 H Sodium Potassium Chloride Carbon Dioxide BUN Creatinine Glucose POC Glucose 153 H 108 H Lactic Acid Calcium Phosphorus Magnesium Direct Bilirubin ALT Alkaline Phosphatase Troponin T C-Reactive Protein Total Protein Albumin Triglycerides Cholesterol LDL Cholesterol Direct HDL Cholesterol Urine WBC (Auto) Urine Creatinine Urine Total Protein Vancomycin Trough Rheumatoid Factor Complement C4 Miscellaneous Test Crossmatch 09/23/16 09/23/16 09/24/16 21:19 23:43 05:16 WBC RBC Hgb Hct MCV MCH MCHC RDW Plt Count Lymph % (Auto) [place] % (Auto) Lymph # [place] # Baso # Seg Neutrophils % Seg Neuts % (Manual) Lymphocytes % (Manual) Monocytes % (Manual) Eosinophils % (Manual) Basophils % (Manual) Nucleated RBC % Seg Neutrophils # Seg Neutrophils # Man Lymphocytes # (Manual) Monocytes # (Manual) Eosinophils # (Manual) PT INR Fibrinogen dRVVT Confirm Interp Factor V Activity POC ABG pH POC ABG pCO2 17.3 L POC ABG pO2 112 H Sodium Potassium Chloride Carbon Dioxide BUN Creatinine Glucose POC Glucose 143 H 164 H Lactic Acid Calcium Phosphorus Magnesium Direct Bilirubin ALT Alkaline Phosphatase Troponin T C-Reactive Protein Total Protein Albumin Triglycerides Cholesterol LDL Cholesterol Direct HDL Cholesterol Urine WBC (Auto) Urine Creatinine Urine Total Protein Vancomycin Trough Rheumatoid Factor Complement C4 Miscellaneous Test Crossmatch 09/24/16 09/24/16 09/24/16 05:21 11:58 17:06 WBC RBC Hgb Hct MCV MCH MCHC RDW Plt Count Lymph % (Auto) [place] % (Auto) Lymph # [place] # Baso # Seg Neutrophils % Seg Neuts % (Manual) Lymphocytes % (Manual) Monocytes % (Manual) Eosinophils % (Manual) Basophils % (Manual) Nucleated RBC % Seg Neutrophils # Seg Neutrophils # Man Lymphocytes # (Manual) Monocytes # (Manual) Eosinophils # (Manual) PT INR Fibrinogen dRVVT Confirm Interp Factor V Activity POC ABG pH POC ABG pCO2 POC ABG pO2 Sodium Potassium Chloride Carbon Dioxide 10 L BUN 103 H Creatinine 4.3 H Glucose 163 H POC Glucose 173 H 167 H Lactic Acid Calcium 6.5 L Phosphorus Magnesium Direct Bilirubin ALT Alkaline Phosphatase Troponin T C-Reactive Protein Total Protein Albumin Triglycerides Cholesterol LDL Cholesterol Direct HDL Cholesterol Urine WBC (Auto) Urine Creatinine Urine Total Protein Vancomycin Trough Rheumatoid Factor Complement C4 Miscellaneous Test Crossmatch 09/24/16 09/24/16 09/24/16 20:15 21:02 23:48 WBC RBC Hgb Hct MCV MCH MCHC RDW Plt Count Lymph % (Auto) [place] % (Auto) Lymph # [place] # Baso # Seg Neutrophils % Seg Neuts % (Manual) Lymphocytes % (Manual) Monocytes % (Manual) Eosinophils % (Manual) Basophils % (Manual) Nucleated RBC % Seg Neutrophils # Seg Neutrophils # Man Lymphocytes # (Manual) Monocytes # (Manual) Eosinophils # (Manual) PT INR Fibrinogen dRVVT Confirm Interp Factor V Activity POC ABG pH 7.288 L POC ABG pCO2 30.2 L 21.5 L POC ABG pO2 32 L 39 L Sodium Potassium Chloride Carbon Dioxide BUN Creatinine Glucose POC Glucose 109 H Lactic Acid Calcium Phosphorus Magnesium Direct Bilirubin ALT Alkaline Phosphatase Troponin T C-Reactive Protein Total Protein Albumin Triglycerides Cholesterol LDL Cholesterol Direct HDL Cholesterol Urine WBC (Auto) Urine Creatinine Urine Total Protein Vancomycin Trough Rheumatoid Factor Complement C4 Miscellaneous Test Crossmatch 09/25/16 09/25/16 09/25/16 04:20 04:20 04:20 WBC RBC 2.58 L Hgb 7.0 L Hct 21.0 L MCV MCH 27 L MCHC RDW 23.8 H Plt Count Lymph % (Auto) [place] % (Auto) Lymph # [place] # Baso # Seg Neutrophils % Seg Neuts % (Manual) Lymphocytes % (Manual) 12.0 L Monocytes % (Manual) Eosinophils % (Manual) 7.0 H Basophils % (Manual) 2.0 H Nucleated RBC % Seg Neutrophils # Seg Neutrophils # Man Lymphocytes # (Manual) 0.9 L Monocytes # (Manual) Eosinophils # (Manual) 0.5 H PT INR Fibrinogen dRVVT Confirm Interp Factor V Activity POC ABG pH POC ABG pCO2 POC ABG pO2 Sodium Potassium Chloride Carbon Dioxide 15 L BUN 72 H Creatinine 3.8 H Glucose POC Glucose Lactic Acid Calcium 6.0 L Phosphorus 4.60 H Magnesium 1.60 L Direct Bilirubin ALT Alkaline Phosphatase Troponin T C-Reactive Protein Total Protein Albumin Triglycerides Cholesterol LDL Cholesterol Direct HDL Cholesterol Urine WBC (Auto) Urine Creatinine Urine Total Protein Vancomycin Trough Rheumatoid Factor Complement C4 Miscellaneous Test Crossmatch 09/25/16 09/25/16 09/25/16 04:57 08:02 10:30 WBC RBC Hgb Hct MCV MCH MCHC RDW Plt Count Lymph % (Auto) [place] % (Auto) Lymph # [place] # Baso # Seg Neutrophils % Seg Neuts % (Manual) Lymphocytes % (Manual) Monocytes % (Manual) Eosinophils % (Manual) Basophils % (Manual) Nucleated RBC % Seg Neutrophils # Seg Neutrophils # Man Lymphocytes # (Manual) Monocytes # (Manual) Eosinophils # (Manual) PT INR Fibrinogen dRVVT Confirm Interp Factor V Activity POC ABG pH POC ABG pCO2 24.7 L POC ABG pO2 152 H Sodium Potassium Chloride Carbon Dioxide BUN Creatinine Glucose POC Glucose 113 H Lactic Acid Calcium Phosphorus Magnesium Direct Bilirubin ALT Alkaline Phosphatase Troponin T C-Reactive Protein Total Protein Albumin Triglycerides Cholesterol LDL Cholesterol Direct HDL Cholesterol Urine WBC (Auto) Urine Creatinine Urine Total Protein Vancomycin Trough Rheumatoid Factor Complement C4 Miscellaneous Test Crossmatch See Detail 09/25/16 09/25/16 09/25/16 12:05 17:44 23:47 WBC RBC Hgb Hct MCV MCH MCHC RDW Plt Count Lymph % (Auto) [place] % (Auto) Lymph # [place] # Baso # Seg Neutrophils % Seg Neuts % (Manual) Lymphocytes % (Manual) Monocytes % (Manual) Eosinophils % (Manual) Basophils % (Manual) Nucleated RBC % Seg Neutrophils # Seg Neutrophils # Man Lymphocytes # (Manual) Monocytes # (Manual) Eosinophils # (Manual) PT INR Fibrinogen dRVVT Confirm Interp Factor V Activity POC ABG pH POC ABG pCO2 POC ABG pO2 Sodium Potassium Chloride Carbon Dioxide BUN Creatinine Glucose POC Glucose 117 H 119 H 150 H Lactic Acid Calcium Phosphorus Magnesium Direct Bilirubin ALT Alkaline Phosphatase Troponin T C-Reactive Protein Total Protein Albumin Triglycerides Cholesterol LDL Cholesterol Direct HDL Cholesterol Urine WBC (Auto) Urine Creatinine Urine Total Protein Vancomycin Trough Rheumatoid Factor Complement C4 Miscellaneous Test Crossmatch 09/26/16 09/26/16 09/26/16 04:25 04:25 04:25 WBC RBC 2.65 L Hgb 7.4 L Hct 21.6 L MCV MCH MCHC RDW 22.5 H Plt Count Lymph % (Auto) [place] % (Auto) Lymph # [place] # Baso # Seg Neutrophils % Seg Neuts % (Manual) Lymphocytes % (Manual) 6.0 L Monocytes % (Manual) Eosinophils % (Manual) 11.0 H Basophils % (Manual) Nucleated RBC % Seg Neutrophils # Seg Neutrophils # Man Lymphocytes # (Manual) 0.4 L Monocytes # (Manual) Eosinophils # (Manual) 0.6 H PT INR Fibrinogen dRVVT Confirm Interp Factor V Activity POC ABG pH POC ABG pCO2 POC ABG pO2 Sodium Potassium Chloride 97.0 L Carbon Dioxide 19 L BUN 43 H Creatinine 2.6 H Glucose 130 H POC Glucose Lactic Acid 4.40 H* Calcium 6.7 L Phosphorus Magnesium Direct Bilirubin ALT Alkaline Phosphatase Troponin T C-Reactive Protein Total Protein Albumin Triglycerides Cholesterol LDL Cholesterol Direct HDL Cholesterol Urine WBC (Auto) Urine Creatinine Urine Total Protein Vancomycin Trough Rheumatoid Factor Complement C4 Miscellaneous Test Crossmatch 09/26/16 09/26/16 09/26/16 05:20 11:44 12:12 WBC RBC Hgb Hct MCV MCH MCHC RDW Plt Count Lymph % (Auto) [place] % (Auto) Lymph # [place] # Baso # Seg Neutrophils % Seg Neuts % (Manual) Lymphocytes % (Manual) Monocytes % (Manual) Eosinophils % (Manual) Basophils % (Manual) Nucleated RBC % Seg Neutrophils # Seg Neutrophils # Man Lymphocytes # (Manual) Monocytes # (Manual) Eosinophils # (Manual) PT INR Fibrinogen dRVVT Confirm Interp Factor V Activity POC ABG pH POC ABG pCO2 27.0 L POC ABG pO2 69 L Sodium Potassium Chloride Carbon Dioxide BUN Creatinine Glucose POC Glucose 121 H 128 H Lactic Acid Calcium Phosphorus Magnesium Direct Bilirubin ALT Alkaline Phosphatase Troponin T C-Reactive Protein Total Protein Albumin Triglycerides Cholesterol LDL Cholesterol Direct HDL Cholesterol Urine WBC (Auto) Urine Creatinine Urine Total Protein Vancomycin Trough Rheumatoid Factor Complement C4 Miscellaneous Test Crossmatch 09/26/16 09/26/16 09/27/16 18:31 23:40 08:20 WBC RBC Hgb Hct MCV MCH MCHC RDW Plt Count Lymph % (Auto) [place] % (Auto) Lymph # [place] # Baso # Seg Neutrophils % Seg Neuts % (Manual) Lymphocytes % (Manual) Monocytes % (Manual) Eosinophils % (Manual) Basophils % (Manual) Nucleated RBC % Seg Neutrophils # Seg Neutrophils # Man Lymphocytes # (Manual) Monocytes # (Manual) Eosinophils # (Manual) PT INR Fibrinogen dRVVT Confirm Interp Factor V Activity POC ABG pH POC ABG pCO2 POC ABG pO2 Sodium Potassium Chloride Carbon Dioxide BUN Creatinine Glucose POC Glucose 120 H 133 H Lactic Acid 4.10 H* Calcium Phosphorus Magnesium Direct Bilirubin ALT Alkaline Phosphatase Troponin T C-Reactive Protein Total Protein Albumin Triglycerides Cholesterol LDL Cholesterol Direct HDL Cholesterol Urine WBC (Auto) Urine Creatinine Urine Total Protein Vancomycin Trough Rheumatoid Factor Complement C4 Miscellaneous Test Crossmatch 09/27/16 09/27/16 09/27/16 11:23 15:00 18:15 WBC RBC Hgb Hct MCV MCH MCHC RDW Plt Count Lymph % (Auto) [place] % (Auto) Lymph # [place] # Baso # Seg Neutrophils % Seg Neuts % (Manual) Lymphocytes % (Manual) Monocytes % (Manual) Eosinophils % (Manual) Basophils % (Manual) Nucleated RBC % Seg Neutrophils # Seg Neutrophils # Man Lymphocytes # (Manual) Monocytes # (Manual) Eosinophils # (Manual) PT INR Fibrinogen dRVVT Confirm Interp Factor V Activity POC ABG pH 7.459 H POC ABG pCO2 27.1 L POC ABG pO2 140 H Sodium Potassium Chloride Carbon Dioxide BUN Creatinine Glucose POC Glucose 114 H 127 H Lactic Acid Calcium Phosphorus Magnesium Direct Bilirubin ALT Alkaline Phosphatase Troponin T C-Reactive Protein Total Protein Albumin Triglycerides Cholesterol LDL Cholesterol Direct HDL Cholesterol Urine WBC (Auto) Urine Creatinine Urine Total Protein Vancomycin Trough Rheumatoid Factor Complement C4 Miscellaneous Test Crossmatch 09/27/16 09/27/16 09/28/16 Unknown Unknown 03:45 WBC RBC 2.49 L Hgb 6.8 L Hct 20.7 L MCV MCH 27 L MCHC RDW 22.1 H Plt Count Lymph % (Auto) [place] % (Auto) Lymph # [place] # Baso # Seg Neutrophils % Seg Neuts % (Manual) 32.0 L Lymphocytes % (Manual) 12.0 L Monocytes % (Manual) 11.0 H Eosinophils % (Manual) 10.0 H Basophils % (Manual) Nucleated RBC % Seg Neutrophils # Seg Neutrophils # Man Lymphocytes # (Manual) 1.0 L Monocytes # (Manual) 0.9 H Eosinophils # (Manual) 0.8 H PT INR Fibrinogen dRVVT Confirm Interp Factor V Activity POC ABG pH POC ABG pCO2 POC ABG pO2 Sodium 135 L 135 L Potassium 3.5 L Chloride 93.6 L 94.4 L Carbon Dioxide 17 L 21 L BUN 45 H 28 H Creatinine 3.3 H 2.5 H Glucose 106 H POC Glucose Lactic Acid Calcium 7.3 L 7.1 L Phosphorus Magnesium Direct Bilirubin ALT Alkaline Phosphatase Troponin T C-Reactive Protein Total Protein Albumin Triglycerides Cholesterol LDL Cholesterol Direct HDL Cholesterol Urine WBC (Auto) Urine Creatinine Urine Total Protein Vancomycin Trough Rheumatoid Factor Complement C4 Miscellaneous Test Crossmatch 09/28/16 09/28/16 09/28/16 03:45 07:25 11:58 WBC 13.3 H RBC 3.01 L Hgb 8.4 L Hct 25.0 L MCV MCH MCHC RDW 20.5 H Plt Count 128 L Lymph % (Auto) [place] % (Auto) Lymph # [place] # Baso # Seg Neutrophils % Seg Neuts % (Manual) Lymphocytes % (Manual) 7.0 L Monocytes % (Manual) Eosinophils % (Manual) 6.0 H Basophils % (Manual) Nucleated RBC % Seg Neutrophils # Seg Neutrophils # Man Lymphocytes # (Manual) 0.9 L Monocytes # (Manual) Eosinophils # (Manual) 0.8 H PT INR Fibrinogen dRVVT Confirm Interp Factor V Activity POC ABG pH POC ABG pCO2 POC ABG pO2 Sodium Potassium Chloride Carbon Dioxide BUN Creatinine Glucose POC Glucose 121 H Lactic Acid 4.50 H* Calcium Phosphorus Magnesium Direct Bilirubin ALT Alkaline Phosphatase Troponin T C-Reactive Protein Total Protein Albumin Triglycerides Cholesterol LDL Cholesterol Direct HDL Cholesterol Urine WBC (Auto) Urine Creatinine Urine Total Protein Vancomycin Trough Rheumatoid Factor Complement C4 Miscellaneous Test Crossmatch 09/29/16 09/29/16 09/29/16 06:45 06:45 06:45 WBC 14.9 H RBC 2.74 L Hgb 7.6 L Hct 23.2 L MCV MCH MCHC RDW 20.5 H Plt Count 81 L Lymph % (Auto) [place] % (Auto) Lymph # [place] # Baso # Seg Neutrophils % Seg Neuts % (Manual) 81.0 H Lymphocytes % (Manual) 4.0 L Monocytes % (Manual) Eosinophils % (Manual) Basophils % (Manual) Nucleated RBC % Seg Neutrophils # Seg Neutrophils # Man 12.1 H Lymphocytes # (Manual) 0.6 L Monocytes # (Manual) Eosinophils # (Manual) PT INR Fibrinogen dRVVT Confirm Interp Factor V Activity POC ABG pH POC ABG pCO2 POC ABG pO2 Sodium 133 L Potassium 3.4 L Chloride 92.5 L Carbon Dioxide 21 L BUN 33 H Creatinine 3.0 H Glucose POC Glucose Lactic Acid Calcium 6.6 L Phosphorus Magnesium 1.40 L Direct Bilirubin 0.9 H ALT Alkaline Phosphatase Troponin T C-Reactive Protein Total Protein 4.3 L Albumin 1.3 L Triglycerides Cholesterol LDL Cholesterol Direct HDL Cholesterol Urine WBC (Auto) Urine Creatinine Urine Total Protein Vancomycin Trough Rheumatoid Factor Complement C4 Miscellaneous Test Crossmatch 09/29/16 09/29/16 09/30/16 17:52 20:12 00:07 WBC RBC Hgb Hct MCV MCH MCHC RDW Plt Count Lymph % (Auto) [place] % (Auto) Lymph # [place] # Baso # Seg Neutrophils % Seg Neuts % (Manual) Lymphocytes % (Manual) Monocytes % (Manual) Eosinophils % (Manual) Basophils % (Manual) Nucleated RBC % Seg Neutrophils # Seg Neutrophils # Man Lymphocytes # (Manual) Monocytes # (Manual) Eosinophils # (Manual) PT INR Fibrinogen dRVVT Confirm Interp Factor V Activity POC ABG pH POC ABG pCO2 POC ABG pO2 Sodium Potassium Chloride Carbon Dioxide BUN Creatinine Glucose POC Glucose 50 L 51 L Lactic Acid Calcium Phosphorus Magnesium Direct Bilirubin ALT Alkaline Phosphatase Troponin T 0.204 H* C-Reactive Protein Total Protein Albumin Triglycerides Cholesterol 31 L LDL Cholesterol Direct 4 L HDL Cholesterol 3 L Urine WBC (Auto) Urine Creatinine Urine Total Protein Vancomycin Trough Rheumatoid Factor Complement C4 Miscellaneous Test Crossmatch 09/30/16 09/30/16 09/30/16 01:30 05:15 06:10 WBC RBC Hgb Hct MCV MCH MCHC RDW Plt Count Lymph % (Auto) [place] % (Auto) Lymph # [place] # Baso # Seg Neutrophils % Seg Neuts % (Manual) Lymphocytes % (Manual) Monocytes % (Manual) Eosinophils % (Manual) Basophils % (Manual) Nucleated RBC % Seg Neutrophils # Seg Neutrophils # Man Lymphocytes # (Manual) Monocytes # (Manual) Eosinophils # (Manual) PT INR Fibrinogen dRVVT Confirm Interp Factor V Activity POC ABG pH POC ABG pCO2 POC ABG pO2 Sodium 133 L Potassium 3.2 L Chloride 93.2 L Carbon Dioxide 19 L BUN 36 H Creatinine 3.2 H Glucose 104 H POC Glucose 167 H 146 H Lactic Acid Calcium 6.4 L Phosphorus Magnesium 1.60 L Direct Bilirubin ALT Alkaline Phosphatase Troponin T C-Reactive Protein Total Protein Albumin Triglycerides Cholesterol LDL Cholesterol Direct HDL Cholesterol Urine WBC (Auto) Urine Creatinine Urine Total Protein Vancomycin Trough Rheumatoid Factor Complement C4 Miscellaneous Test Crossmatch 09/30/16 09/30/16 09/30/16 11:26 13:39 18:38 WBC RBC Hgb Hct MCV MCH MCHC RDW Plt Count Lymph % (Auto) [place] % (Auto) Lymph # [place] # Baso # Seg Neutrophils % Seg Neuts % (Manual) Lymphocytes % (Manual) Monocytes % (Manual) Eosinophils % (Manual) Basophils % (Manual) Nucleated RBC % Seg Neutrophils # Seg Neutrophils # Man Lymphocytes # (Manual) Monocytes # (Manual) Eosinophils # (Manual) PT INR Fibrinogen dRVVT Confirm Interp Factor V Activity POC ABG pH 7.479 H POC ABG pCO2 29.8 L POC ABG pO2 117 H Sodium Potassium Chloride Carbon Dioxide BUN Creatinine Glucose POC Glucose 140 H 122 H Lactic Acid Calcium Phosphorus Magnesium Direct Bilirubin ALT Alkaline Phosphatase Troponin T C-Reactive Protein Total Protein Albumin Triglycerides Cholesterol LDL Cholesterol Direct HDL Cholesterol Urine WBC (Auto) Urine Creatinine Urine Total Protein Vancomycin Trough Rheumatoid Factor Complement C4 Miscellaneous Test Crossmatch 10/01/16 10/01/16 10/01/16 06:00 06:00 12:37 WBC 12.6 H RBC 2.75 L Hgb 7.3 L Hct 23.3 L MCV MCH 27 L MCHC RDW 20.6 H Plt Count 72 L Lymph % (Auto) [place] % (Auto) Lymph # [place] # Baso # Seg Neutrophils % Seg Neuts % (Manual) 31.0 L Lymphocytes % (Manual) 8.0 L Monocytes % (Manual) Eosinophils % (Manual) Basophils % (Manual) Nucleated RBC % 3.0 H Seg Neutrophils # Seg Neutrophils # Man Lymphocytes # (Manual) 1.0 L Monocytes # (Manual) Eosinophils # (Manual) PT INR Fibrinogen dRVVT Confirm Interp Factor V Activity POC ABG pH POC ABG pCO2 POC ABG pO2 Sodium 127 L Potassium Chloride 86.8 L Carbon Dioxide 20 L BUN 42 H Creatinine 3.5 H Glucose POC Glucose 65 L Lactic Acid Calcium 7.0 L Phosphorus Magnesium Direct Bilirubin ALT Alkaline Phosphatase Troponin T C-Reactive Protein Total Protein Albumin Triglycerides Cholesterol LDL Cholesterol Direct HDL Cholesterol Urine WBC (Auto) Urine Creatinine Urine Total Protein Vancomycin Trough Rheumatoid Factor Complement C4 Miscellaneous Test Crossmatch 10/01/16 10/01/16 10/02/16 17:39 23:32 00:59 WBC RBC Hgb Hct MCV MCH MCHC RDW Plt Count Lymph % (Auto) [place] % (Auto) Lymph # [place] # Baso # Seg Neutrophils % Seg Neuts % (Manual) Lymphocytes % (Manual) Monocytes % (Manual) Eosinophils % (Manual) Basophils % (Manual) Nucleated RBC % Seg Neutrophils # Seg Neutrophils # Man Lymphocytes # (Manual) Monocytes # (Manual) Eosinophils # (Manual) PT INR Fibrinogen dRVVT Confirm Interp Factor V Activity POC ABG pH POC ABG pCO2 POC ABG pO2 Sodium Potassium Chloride Carbon Dioxide BUN Creatinine Glucose POC Glucose 107 H 52 L 145 H Lactic Acid Calcium Phosphorus Magnesium Direct Bilirubin ALT Alkaline Phosphatase Troponin T C-Reactive Protein Total Protein Albumin Triglycerides Cholesterol LDL Cholesterol Direct HDL Cholesterol Urine WBC (Auto) Urine Creatinine Urine Total Protein Vancomycin Trough Rheumatoid Factor Complement C4 Miscellaneous Test Crossmatch 10/02/16 10/02/16 10/02/16 10:30 10:50 10:50 WBC 14.7 H RBC 2.76 L Hgb 7.4 L Hct 23.6 L MCV MCH 27 L MCHC RDW 20.2 H Plt Count 79 L Lymph % (Auto) [place] % (Auto) Lymph # [place] # Baso # Seg Neutrophils % Seg Neuts % (Manual) 86.0 H Lymphocytes % (Manual) 6.0 L Monocytes % (Manual) Eosinophils % (Manual) Basophils % (Manual) Nucleated RBC % Seg Neutrophils # Seg Neutrophils # Man 12.6 H Lymphocytes # (Manual) 0.9 L Monocytes # (Manual) Eosinophils # (Manual) PT INR Fibrinogen dRVVT Confirm Interp Factor V Activity POC ABG pH 7.486 H POC ABG pCO2 30.1 L POC ABG pO2 108 H Sodium 131 L Potassium 3.4 L Chloride 89.9 L Carbon Dioxide BUN 26 H Creatinine 2.6 H Glucose POC Glucose Lactic Acid Calcium 7.0 L Phosphorus Magnesium Direct Bilirubin ALT Alkaline Phosphatase Troponin T C-Reactive Protein Total Protein Albumin Triglycerides Cholesterol LDL Cholesterol Direct HDL Cholesterol Urine WBC (Auto) Urine Creatinine Urine Total Protein Vancomycin Trough Rheumatoid Factor Complement C4 Miscellaneous Test Crossmatch 10/02/16 10/03/16 10/03/16 23:45 00:45 05:10 WBC 12.9 H RBC 2.77 L Hgb 7.6 L Hct 23.7 L MCV MCH 27 L MCHC RDW 19.7 H Plt Count 89 L Lymph % (Auto) [place] % (Auto) Lymph # [place] # Baso # Seg Neutrophils % Seg Neuts % (Manual) Lymphocytes % (Manual) 8.0 L Monocytes % (Manual) Eosinophils % (Manual) Basophils % (Manual) Nucleated RBC % Seg Neutrophils # 11.9 H Seg Neutrophils # Man Lymphocytes # (Manual) 1.0 L Monocytes # (Manual) Eosinophils # (Manual) PT INR Fibrinogen dRVVT Confirm Interp Factor V Activity POC ABG pH POC ABG pCO2 POC ABG pO2 Sodium Potassium Chloride Carbon Dioxide BUN Creatinine Glucose POC Glucose 55 L 199 H Lactic Acid Calcium Phosphorus Magnesium Direct Bilirubin ALT Alkaline Phosphatase Troponin T C-Reactive Protein Total Protein Albumin Triglycerides Cholesterol LDL Cholesterol Direct HDL Cholesterol Urine WBC (Auto) Urine Creatinine Urine Total Protein Vancomycin Trough Rheumatoid Factor Complement C4 Miscellaneous Test Crossmatch 10/03/16 10/03/16 10/03/16 05:10 12:14 13:18 WBC RBC Hgb Hct MCV MCH MCHC RDW Plt Count Lymph % (Auto) [place] % (Auto) Lymph # [place] # Baso # Seg Neutrophils % Seg Neuts % (Manual) Lymphocytes % (Manual) Monocytes % (Manual) Eosinophils % (Manual) Basophils % (Manual) Nucleated RBC % Seg Neutrophils # Seg Neutrophils # Man Lymphocytes # (Manual) Monocytes # (Manual) Eosinophils # (Manual) PT INR Fibrinogen dRVVT Confirm Interp Factor V Activity POC ABG pH POC ABG pCO2 POC ABG pO2 Sodium 129 L Potassium 3.3 L Chloride 88.8 L Carbon Dioxide 20 L BUN 29 H Creatinine 2.8 H Glucose POC Glucose 68 L 127 H Lactic Acid Calcium 7.2 L Phosphorus Magnesium Direct Bilirubin ALT Alkaline Phosphatase Troponin T C-Reactive Protein Total Protein Albumin Triglycerides Cholesterol LDL Cholesterol Direct HDL Cholesterol Urine WBC (Auto) Urine Creatinine Urine Total Protein Vancomycin Trough Rheumatoid Factor Complement C4 Miscellaneous Test Crossmatch 10/03/16 10/03/16 10/03/16 14:42 18:21 19:09 WBC RBC Hgb Hct MCV MCH MCHC RDW Plt Count Lymph % (Auto) [place] % (Auto) Lymph # [place] # Baso # Seg Neutrophils % Seg Neuts % (Manual) Lymphocytes % (Manual) Monocytes % (Manual) Eosinophils % (Manual) Basophils % (Manual) Nucleated RBC % Seg Neutrophils # Seg Neutrophils # Man Lymphocytes # (Manual) Monocytes # (Manual) Eosinophils # (Manual) PT INR Fibrinogen dRVVT Confirm Interp Factor V Activity POC ABG pH 7.499 H POC ABG pCO2 28.4 L POC ABG pO2 44 L Sodium Potassium Chloride Carbon Dioxide BUN Creatinine Glucose POC Glucose 64 L 205 H Lactic Acid Calcium Phosphorus Magnesium Direct Bilirubin ALT Alkaline Phosphatase Troponin T C-Reactive Protein Total Protein Albumin Triglycerides Cholesterol LDL Cholesterol Direct HDL Cholesterol Urine WBC (Auto) Urine Creatinine Urine Total Protein Vancomycin Trough Rheumatoid Factor Complement C4 Miscellaneous Test Crossmatch 10/03/16 10/04/16 10/04/16 23:33 04:18 06:30 WBC RBC 2.54 L Hgb 7.1 L Hct 21.7 L MCV MCH MCHC RDW 19.5 H Plt Count 76 L Lymph % (Auto) [place] % (Auto) Lymph # [place] # Baso # Seg Neutrophils % Seg Neuts % (Manual) 88.0 H Lymphocytes % (Manual) 6.0 L Monocytes % (Manual) Eosinophils % (Manual) Basophils % (Manual) Nucleated RBC % Seg Neutrophils # Seg Neutrophils # Man 8.8 H Lymphocytes # (Manual) 0.6 L Monocytes # (Manual) Eosinophils # (Manual) PT INR Fibrinogen dRVVT Confirm Interp Factor V Activity POC ABG pH 7.461 H POC ABG pCO2 33.6 L POC ABG pO2 211 H Sodium Potassium Chloride Carbon Dioxide BUN Creatinine Glucose POC Glucose 136 H Lactic Acid Calcium Phosphorus Magnesium Direct Bilirubin ALT Alkaline Phosphatase Troponin T C-Reactive Protein Total Protein Albumin Triglycerides Cholesterol LDL Cholesterol Direct HDL Cholesterol Urine WBC (Auto) Urine Creatinine Urine Total Protein Vancomycin Trough Rheumatoid Factor Complement C4 Miscellaneous Test Crossmatch 10/04/16 10/04/16 10/04/16 06:30 11:45 17:54 WBC RBC Hgb Hct MCV MCH MCHC RDW Plt Count Lymph % (Auto) [place] % (Auto) Lymph # [place] # Baso # Seg Neutrophils % Seg Neuts % (Manual) Lymphocytes % (Manual) Monocytes % (Manual) Eosinophils % (Manual) Basophils % (Manual) Nucleated RBC % Seg Neutrophils # Seg Neutrophils # Man Lymphocytes # (Manual) Monocytes # (Manual) Eosinophils # (Manual) PT INR Fibrinogen dRVVT Confirm Interp Factor V Activity POC ABG pH POC ABG pCO2 POC ABG pO2 Sodium 128 L Potassium Chloride 87.4 L Carbon Dioxide 20 L BUN 34 H Creatinine 2.9 H Glucose 127 H POC Glucose 158 H 160 H Lactic Acid Calcium 7.4 L Phosphorus Magnesium Direct Bilirubin ALT Alkaline Phosphatase Troponin T C-Reactive Protein Total Protein Albumin Triglycerides Cholesterol LDL Cholesterol Direct HDL Cholesterol Urine WBC (Auto) Urine Creatinine Urine Total Protein Vancomycin Trough Rheumatoid Factor Complement C4 Miscellaneous Test Crossmatch 10/04/16 10/05/16 10/05/16 23:25 04:30 05:00 WBC RBC 2.64 L Hgb 7.5 L Hct 22.6 L MCV MCH MCHC RDW 19.3 H Plt Count 80 L Lymph % (Auto) [place] % (Auto) Lymph # [place] # Baso # Seg Neutrophils % Seg Neuts % (Manual) Lymphocytes % (Manual) 12.0 L Monocytes % (Manual) Eosinophils % (Manual) Basophils % (Manual) Nucleated RBC % Seg Neutrophils # Seg Neutrophils # Man Lymphocytes # (Manual) Monocytes # (Manual) Eosinophils # (Manual) PT INR Fibrinogen dRVVT Confirm Interp Factor V Activity POC ABG pH 7.475 H POC ABG pCO2 33.3 L POC ABG pO2 140 H Sodium Potassium Chloride Carbon Dioxide BUN Creatinine Glucose POC Glucose 141 H Lactic Acid Calcium Phosphorus Magnesium Direct Bilirubin ALT Alkaline Phosphatase Troponin T C-Reactive Protein Total Protein Albumin Triglycerides Cholesterol LDL Cholesterol Direct HDL Cholesterol Urine WBC (Auto) Urine Creatinine Urine Total Protein Vancomycin Trough Rheumatoid Factor Complement C4 Miscellaneous Test Crossmatch 10/05/16 10/05/16 10/05/16 05:00 05:09 12:58 WBC RBC Hgb Hct MCV MCH MCHC RDW Plt Count Lymph % (Auto) [place] % (Auto) Lymph # [place] # Baso # Seg Neutrophils % Seg Neuts % (Manual) Lymphocytes % (Manual) Monocytes % (Manual) Eosinophils % (Manual) Basophils % (Manual) Nucleated RBC % Seg Neutrophils # Seg Neutrophils # Man Lymphocytes # (Manual) Monocytes # (Manual) Eosinophils # (Manual) PT INR Fibrinogen dRVVT Confirm Interp Factor V Activity POC ABG pH POC ABG pCO2 POC ABG pO2 Sodium 131 L Potassium Chloride 94.0 L Carbon Dioxide 20 L BUN 22 H Creatinine 2.0 H Glucose 123 H POC Glucose 166 H 179 H Lactic Acid Calcium 7.7 L Phosphorus 2.20 L D Magnesium Direct Bilirubin ALT Alkaline Phosphatase Troponin T C-Reactive Protein Total Protein Albumin Triglycerides Cholesterol LDL Cholesterol Direct HDL Cholesterol Urine WBC (Auto) Urine Creatinine Urine Total Protein Vancomycin Trough Rheumatoid Factor Complement C4 Miscellaneous Test Crossmatch 10/05/16 10/05/16 10/05/16 15:50 18:53 23:12 WBC RBC Hgb Hct MCV MCH MCHC RDW Plt Count Lymph % (Auto) [place] % (Auto) Lymph # [place] # Baso # Seg Neutrophils % Seg Neuts % (Manual) Lymphocytes % (Manual) Monocytes % (Manual) Eosinophils % (Manual) Basophils % (Manual) Nucleated RBC % Seg Neutrophils # Seg Neutrophils # Man Lymphocytes # (Manual) Monocytes # (Manual) Eosinophils # (Manual) PT INR Fibrinogen dRVVT Confirm Interp Factor V Activity POC ABG pH POC ABG pCO2 POC ABG pO2 Sodium Potassium Chloride Carbon Dioxide BUN Creatinine Glucose POC Glucose 150 H 164 H Lactic Acid Calcium Phosphorus Magnesium Direct Bilirubin ALT Alkaline Phosphatase Troponin T C-Reactive Protein Total Protein Albumin Triglycerides Cholesterol LDL Cholesterol Direct HDL Cholesterol Urine WBC (Auto) Urine Creatinine Urine Total Protein Vancomycin Trough Rheumatoid Factor Complement C4 Miscellaneous Test Crossmatch See Detail 10/06/16 10/06/16 10/06/16 03:50 03:50 04:53 WBC RBC 3.00 L Hgb 8.6 L Hct 25.8 L MCV MCH MCHC RDW 17.9 H Plt Count 65 L Lymph % (Auto) [place] % (Auto) Lymph # [place] # Baso # Seg Neutrophils % Seg Neuts % (Manual) 30.0 L Lymphocytes % (Manual) 5.0 L Monocytes % (Manual) Eosinophils % (Manual) Basophils % (Manual) Nucleated RBC % Seg Neutrophils # Seg Neutrophils # Man Lymphocytes # (Manual) 0.4 L Monocytes # (Manual) Eosinophils # (Manual) PT INR Fibrinogen dRVVT Confirm Interp Factor V Activity POC ABG pH 7.310 L POC ABG pCO2 49.0 H POC ABG pO2 Sodium 133 L Potassium Chloride 95.9 L Carbon Dioxide BUN 26 H Creatinine 2.0 H Glucose 116 H POC Glucose Lactic Acid Calcium 7.8 L Phosphorus Magnesium Direct Bilirubin ALT Alkaline Phosphatase Troponin T C-Reactive Protein Total Protein Albumin Triglycerides Cholesterol LDL Cholesterol Direct HDL Cholesterol Urine WBC (Auto) Urine Creatinine Urine Total Protein Vancomycin Trough Rheumatoid Factor Complement C4 Miscellaneous Test Crossmatch 10/06/16 10/06/16 10/06/16 05:23 11:52 18:34 WBC RBC Hgb Hct MCV MCH MCHC RDW Plt Count Lymph % (Auto) [place] % (Auto) Lymph # [place] # Baso # Seg Neutrophils % Seg Neuts % (Manual) Lymphocytes % (Manual) Monocytes % (Manual) Eosinophils % (Manual) Basophils % (Manual) Nucleated RBC % Seg Neutrophils # Seg Neutrophils # Man Lymphocytes # (Manual) Monocytes # (Manual) Eosinophils # (Manual) PT INR Fibrinogen dRVVT Confirm Interp Factor V Activity POC ABG pH POC ABG pCO2 POC ABG pO2 Sodium Potassium Chloride Carbon Dioxide BUN Creatinine Glucose POC Glucose 126 H 116 H 129 H Lactic Acid Calcium Phosphorus Magnesium Direct Bilirubin ALT Alkaline Phosphatase Troponin T C-Reactive Protein Total Protein Albumin Triglycerides Cholesterol LDL Cholesterol Direct HDL Cholesterol Urine WBC (Auto) Urine Creatinine Urine Total Protein Vancomycin Trough Rheumatoid Factor Complement C4 Miscellaneous Test Crossmatch 10/07/16 10/07/16 10/07/16 03:45 05:00 10:00 WBC 17.0 H RBC 2.68 L Hgb 7.3 L Hct 25.3 L MCV MCH 27 L MCHC 29 L RDW 19.6 H Plt Count 74 L Lymph % (Auto) [place] % (Auto) Lymph # [place] # Baso # Seg Neutrophils % Seg Neuts % (Manual) Lymphocytes % (Manual) 12.0 L Monocytes % (Manual) Eosinophils % (Manual) Basophils % (Manual) Nucleated RBC % 4.0 H Seg Neutrophils # Seg Neutrophils # Man 10.7 H Lymphocytes # (Manual) Monocytes # (Manual) Eosinophils # (Manual) PT INR Fibrinogen dRVVT Confirm Interp Factor V Activity POC ABG pH POC ABG pCO2 POC ABG pO2 Sodium 130 L Potassium 3.2 L Chloride 93.9 L Carbon Dioxide 20 L BUN 44 H Creatinine 2.7 H Glucose 129 H POC Glucose Lactic Acid Calcium 7.4 L Phosphorus Magnesium Direct Bilirubin ALT 6 L Alkaline Phosphatase 195 H Troponin T C-Reactive Protein Total Protein 4.9 L Albumin 1.0 L Triglycerides Cholesterol LDL Cholesterol Direct HDL Cholesterol Urine WBC (Auto) Urine Creatinine Urine Total Protein Vancomycin Trough Rheumatoid Factor Complement C4 Miscellaneous Test Flexitest 1 H Crossmatch 10/07/16 10/07/16 10/07/16 10:00 11:24 18:10 WBC RBC Hgb Hct MCV MCH MCHC RDW Plt Count Lymph % (Auto) [place] % (Auto) Lymph # [place] # Baso # Seg Neutrophils % Seg Neuts % (Manual) Lymphocytes % (Manual) Monocytes % (Manual) Eosinophils % (Manual) Basophils % (Manual) Nucleated RBC % Seg Neutrophils # Seg Neutrophils # Man Lymphocytes # (Manual) Monocytes # (Manual) Eosinophils # (Manual) PT INR Fibrinogen dRVVT Confirm Interp Factor V Activity POC ABG pH POC ABG pCO2 POC ABG pO2 Sodium Potassium Chloride Carbon Dioxide BUN Creatinine Glucose POC Glucose 116 H 130 H Lactic Acid Calcium Phosphorus Magnesium Direct Bilirubin ALT Alkaline Phosphatase Troponin T C-Reactive Protein 19.40 H Total Protein Albumin Triglycerides Cholesterol LDL Cholesterol Direct HDL Cholesterol Urine WBC (Auto) Urine Creatinine Urine Total Protein Vancomycin Trough Rheumatoid Factor Complement C4 Miscellaneous Test Crossmatch 10/07/16 10/08/16 10/08/16 18:30 00:00 04:00 WBC RBC Hgb Hct MCV MCH MCHC RDW Plt Count Lymph % (Auto) [place] % (Auto) Lymph # [place] # Baso # Seg Neutrophils % Seg Neuts % (Manual) Lymphocytes % (Manual) Monocytes % (Manual) Eosinophils % (Manual) Basophils % (Manual) Nucleated RBC % Seg Neutrophils # Seg Neutrophils # Man Lymphocytes # (Manual) Monocytes # (Manual) Eosinophils # (Manual) PT INR Fibrinogen dRVVT Confirm Interp Factor V Activity POC ABG pH POC ABG pCO2 POC ABG pO2 Sodium 132 L Potassium 3.3 L Chloride 93.6 L Carbon Dioxide 17 L BUN 59 H Creatinine 2.7 H Glucose 121 H POC Glucose 122 H Lactic Acid Calcium 7.6 L Phosphorus Magnesium Direct Bilirubin ALT Alkaline Phosphatase Troponin T C-Reactive Protein Total Protein Albumin Triglycerides Cholesterol LDL Cholesterol Direct HDL Cholesterol Urine WBC (Auto) > 182.0 H Urine Creatinine Urine Total Protein Vancomycin Trough Rheumatoid Factor Complement C4 Miscellaneous Test Crossmatch 10/08/16 10/08/16 10/08/16 04:30 05:30 11:51 WBC RBC 5.15 H Hgb 14.4 H D Hct 44.5 H D MCV MCH MCHC RDW 19.5 H Plt Count 56 L Lymph % (Auto) [place] % (Auto) Lymph # [place] # Baso # Seg Neutrophils % Seg Neuts % (Manual) 24.0 L Lymphocytes % (Manual) 8.0 L Monocytes % (Manual) Eosinophils % (Manual) Basophils % (Manual) Nucleated RBC % 9.0 H Seg Neutrophils # Seg Neutrophils # Man Lymphocytes # (Manual) 0.7 L Monocytes # (Manual) Eosinophils # (Manual) PT INR Fibrinogen dRVVT Confirm Interp Factor V Activity POC ABG pH POC ABG pCO2 POC ABG pO2 Sodium Potassium Chloride Carbon Dioxide BUN Creatinine Glucose POC Glucose 125 H 150 H Lactic Acid Calcium Phosphorus Magnesium Direct Bilirubin ALT Alkaline Phosphatase Troponin T C-Reactive Protein Total Protein Albumin Triglycerides Cholesterol LDL Cholesterol Direct HDL Cholesterol Urine WBC (Auto) Urine Creatinine Urine Total Protein Vancomycin Trough Rheumatoid Factor Complement C4 Miscellaneous Test Crossmatch 10/08/16 10/08/16 10/08/16 12:49 17:07 19:30 WBC RBC Hgb 7.1 L D Hct 22.4 L D MCV MCH MCHC RDW Plt Count Lymph % (Auto) [place] % (Auto) Lymph # [place] # Baso # Seg Neutrophils % Seg Neuts % (Manual) Lymphocytes % (Manual) Monocytes % (Manual) Eosinophils % (Manual) Basophils % (Manual) Nucleated RBC % Seg Neutrophils # Seg Neutrophils # Man Lymphocytes # (Manual) Monocytes # (Manual) Eosinophils # (Manual) PT INR Fibrinogen dRVVT Confirm Interp Factor V Activity POC ABG pH POC ABG pCO2 28.2 L POC ABG pO2 111 H Sodium Potassium Chloride Carbon Dioxide BUN Creatinine Glucose POC Glucose 145 H Lactic Acid Calcium Phosphorus Magnesium Direct Bilirubin ALT Alkaline Phosphatase Troponin T C-Reactive Protein Total Protein Albumin Triglycerides Cholesterol LDL Cholesterol Direct HDL Cholesterol Urine WBC (Auto) Urine Creatinine Urine Total Protein Vancomycin Trough Rheumatoid Factor Complement C4 Miscellaneous Test Crossmatch 10/08/16 10/09/16 10/09/16 19:30 03:45 03:45 WBC 12.6 H RBC 2.36 L Hgb 6.7 L Hct 21.1 L MCV MCH MCHC RDW 19.5 H Plt Count 75 L Lymph % (Auto) [place] % (Auto) Lymph # [place] # Baso # Seg Neutrophils % Seg Neuts % (Manual) Lymphocytes % (Manual) Monocytes % (Manual) 10.0 H Eosinophils % (Manual) Basophils % (Manual) Nucleated RBC % 3.0 H Seg Neutrophils # Seg Neutrophils # Man Lymphocytes # (Manual) Monocytes # (Manual) 1.3 H Eosinophils # (Manual) PT 18.0 H INR 1.41 H Fibrinogen dRVVT Confirm Interp Factor V Activity POC ABG pH POC ABG pCO2 POC ABG pO2 Sodium 135 L Potassium Chloride Carbon Dioxide 17 L BUN 81 H Creatinine 3.2 H Glucose 109 H POC Glucose Lactic Acid Calcium 7.4 L Phosphorus 4.60 H D Magnesium Direct Bilirubin ALT Alkaline Phosphatase Troponin T C-Reactive Protein Total Protein Albumin Triglycerides Cholesterol LDL Cholesterol Direct HDL Cholesterol Urine WBC (Auto) Urine Creatinine Urine Total Protein Vancomycin Trough Rheumatoid Factor Complement C4 Miscellaneous Test Crossmatch 10/09/16 10/09/16 10/09/16 03:45 05:14 07:20 WBC RBC Hgb Hct MCV MCH MCHC RDW Plt Count Lymph % (Auto) [place] % (Auto) Lymph # [place] # Baso # Seg Neutrophils % Seg Neuts % (Manual) Lymphocytes % (Manual) Monocytes % (Manual) Eosinophils % (Manual) Basophils % (Manual) Nucleated RBC % Seg Neutrophils # Seg Neutrophils # Man Lymphocytes # (Manual) Monocytes # (Manual) Eosinophils # (Manual) PT 19.0 H INR 1.51 H Fibrinogen dRVVT Confirm Interp Factor V Activity POC ABG pH POC ABG pCO2 POC ABG pO2 Sodium Potassium Chloride Carbon Dioxide BUN Creatinine Glucose POC Glucose 151 H Lactic Acid Calcium Phosphorus Magnesium Direct Bilirubin ALT Alkaline Phosphatase Troponin T C-Reactive Protein Total Protein Albumin Triglycerides Cholesterol LDL Cholesterol Direct HDL Cholesterol Urine WBC (Auto) Urine Creatinine Urine Total Protein Vancomycin Trough Rheumatoid Factor Complement C4 Miscellaneous Test Crossmatch See Detail 10/09/16 10/09/16 10/09/16 11:46 16:20 16:43 WBC RBC Hgb 7.2 L Hct 22.2 L MCV MCH MCHC RDW Plt Count Lymph % (Auto) [place] % (Auto) Lymph # [place] # Baso # Seg Neutrophils % Seg Neuts % (Manual) Lymphocytes % (Manual) Monocytes % (Manual) Eosinophils % (Manual) Basophils % (Manual) Nucleated RBC % Seg Neutrophils # Seg Neutrophils # Man Lymphocytes # (Manual) Monocytes # (Manual) Eosinophils # (Manual) PT INR Fibrinogen dRVVT Confirm Interp Factor V Activity POC ABG pH POC ABG pCO2 POC ABG pO2 Sodium Potassium Chloride Carbon Dioxide BUN Creatinine Glucose POC Glucose 133 H 141 H Lactic Acid Calcium Phosphorus Magnesium Direct Bilirubin ALT Alkaline Phosphatase Troponin T C-Reactive Protein Total Protein Albumin Triglycerides Cholesterol LDL Cholesterol Direct HDL Cholesterol Urine WBC (Auto) Urine Creatinine Urine Total Protein Vancomycin Trough Rheumatoid Factor Complement C4 Miscellaneous Test Crossmatch 10/10/16 10/10/16 10/10/16 05:00 05:00 11:19 WBC 18.5 H RBC 2.19 L Hgb 6.4 L Hct 19.6 L* MCV MCH MCHC RDW 19.3 H Plt Count 93 L Lymph % (Auto) [place] % (Auto) Lymph # [place] # Baso # Seg Neutrophils % Seg Neuts % (Manual) Lymphocytes % (Manual) 10.0 L Monocytes % (Manual) Eosinophils % (Manual) Basophils % (Manual) Nucleated RBC % 4.0 H Seg Neutrophils # Seg Neutrophils # Man 11.3 H Lymphocytes # (Manual) Monocytes # (Manual) Eosinophils # (Manual) PT INR Fibrinogen dRVVT Confirm Interp Factor V Activity POC ABG pH POC ABG pCO2 POC ABG pO2 Sodium Potassium 5.7 H D Chloride Carbon Dioxide 16 L BUN 94 H Creatinine 3.1 H Glucose 131 H POC Glucose 153 H Lactic Acid Calcium 8.2 L Phosphorus 5.10 H Magnesium 2.40 H Direct Bilirubin 0.3 H ALT < 5 L Alkaline Phosphatase 319 H Troponin T C-Reactive Protein Total Protein 5.1 L Albumin 1.0 L Triglycerides Cholesterol LDL Cholesterol Direct HDL Cholesterol Urine WBC (Auto) Urine Creatinine Urine Total Protein Vancomycin Trough Rheumatoid Factor Complement C4 Miscellaneous Test Crossmatch 10/10/16 10/10/16 10/11/16 17:50 23:30 04:15 WBC RBC Hgb Hct MCV MCH MCHC RDW Plt Count Lymph % (Auto) [place] % (Auto) Lymph # [place] # Baso # Seg Neutrophils % Seg Neuts % (Manual) Lymphocytes % (Manual) Monocytes % (Manual) Eosinophils % (Manual) Basophils % (Manual) Nucleated RBC % Seg Neutrophils # Seg Neutrophils # Man Lymphocytes # (Manual) Monocytes # (Manual) Eosinophils # (Manual) PT INR Fibrinogen dRVVT Confirm Interp Factor V Activity POC ABG pH POC ABG pCO2 POC ABG pO2 Sodium Potassium Chloride 96.4 L Carbon Dioxide 21 L BUN 57 H Creatinine 2.1 H Glucose 151 H POC Glucose 146 H 141 H Lactic Acid Calcium 8.3 L Phosphorus Magnesium Direct Bilirubin ALT Alkaline Phosphatase Troponin T C-Reactive Protein Total Protein Albumin Triglycerides Cholesterol LDL Cholesterol Direct HDL Cholesterol Urine WBC (Auto) Urine Creatinine Urine Total Protein Vancomycin Trough Rheumatoid Factor Complement C4 Miscellaneous Test Crossmatch 10/11/16 10/11/16 10/11/16 04:15 04:15 05:30 WBC 28.3 H RBC 3.12 L Hgb 9.3 L Hct 28.7 L D MCV MCH MCHC RDW 17.7 H Plt Count 128 L Lymph % (Auto) [place] % (Auto) Lymph # [place] # Baso # Seg Neutrophils % Seg Neuts % (Manual) Lymphocytes % (Manual) Monocytes % (Manual) Eosinophils % (Manual) Basophils % (Manual) Nucleated RBC % Seg Neutrophils # Seg Neutrophils # Man Lymphocytes # (Manual) Monocytes # (Manual) Eosinophils # (Manual) PT INR Fibrinogen dRVVT Confirm Interp Factor V Activity POC ABG pH POC ABG pCO2 POC ABG pO2 Sodium Potassium Chloride Carbon Dioxide BUN Creatinine Glucose POC Glucose 167 H Lactic Acid Calcium Phosphorus Magnesium Direct Bilirubin ALT Alkaline Phosphatase Troponin T C-Reactive Protein 15.80 H Total Protein Albumin Triglycerides Cholesterol LDL Cholesterol Direct HDL Cholesterol Urine WBC (Auto) Urine Creatinine Urine Total Protein Vancomycin Trough Rheumatoid Factor Complement C4 Miscellaneous Test Crossmatch 10/11/16 10/11/16 10/11/16 11:40 15:49 23:57 WBC RBC Hgb Hct MCV MCH MCHC RDW Plt Count Lymph % (Auto) [place] % (Auto) Lymph # [place] # Baso # Seg Neutrophils % Seg Neuts % (Manual) Lymphocytes % (Manual) Monocytes % (Manual) Eosinophils % (Manual) Basophils % (Manual) Nucleated RBC % Seg Neutrophils # Seg Neutrophils # Man Lymphocytes # (Manual) Monocytes # (Manual) Eosinophils # (Manual) PT INR Fibrinogen dRVVT Confirm Interp Factor V Activity POC ABG pH POC ABG pCO2 POC ABG pO2 Sodium Potassium Chloride Carbon Dioxide BUN Creatinine Glucose POC Glucose 139 H 168 H 161 H Lactic Acid Calcium Phosphorus Magnesium Direct Bilirubin ALT Alkaline Phosphatase Troponin T C-Reactive Protein Total Protein Albumin Triglycerides Cholesterol LDL Cholesterol Direct HDL Cholesterol Urine WBC (Auto) Urine Creatinine Urine Total Protein Vancomycin Trough Rheumatoid Factor Complement C4 Miscellaneous Test Crossmatch 10/12/16 10/12/16 10/12/16 04:40 04:40 05:44 WBC 22.5 H RBC 2.88 L Hgb 8.8 L Hct 26.8 L MCV MCH MCHC RDW 17.8 H Plt Count Lymph % (Auto) [place] % (Auto) Lymph # [place] # Baso # Seg Neutrophils % Seg Neuts % (Manual) Lymphocytes % (Manual) Monocytes % (Manual) Eosinophils % (Manual) Basophils % (Manual) Nucleated RBC % Seg Neutrophils # Seg Neutrophils # Man Lymphocytes # (Manual) Monocytes # (Manual) Eosinophils # (Manual) PT INR Fibrinogen dRVVT Confirm Interp Factor V Activity POC ABG pH POC ABG pCO2 POC ABG pO2 Sodium 134 L Potassium Chloride 93.0 L Carbon Dioxide BUN 74 H Creatinine 2.5 H Glucose 137 H POC Glucose 158 H Lactic Acid Calcium 8.2 L Phosphorus Magnesium Direct Bilirubin ALT Alkaline Phosphatase Troponin T C-Reactive Protein Total Protein Albumin Triglycerides Cholesterol LDL Cholesterol Direct HDL Cholesterol Urine WBC (Auto) Urine Creatinine Urine Total Protein Vancomycin Trough Rheumatoid Factor Complement C4 Miscellaneous Test Crossmatch 10/12/16 10/12/16 10/12/16 12:27 18:18 23:46 WBC RBC Hgb Hct MCV MCH MCHC RDW Plt Count Lymph % (Auto) [place] % (Auto) Lymph # [place] # Baso # Seg Neutrophils % Seg Neuts % (Manual) Lymphocytes % (Manual) Monocytes % (Manual) Eosinophils % (Manual) Basophils % (Manual) Nucleated RBC % Seg Neutrophils # Seg Neutrophils # Man Lymphocytes # (Manual) Monocytes # (Manual) Eosinophils # (Manual) PT INR Fibrinogen dRVVT Confirm Interp Factor V Activity POC ABG pH POC ABG pCO2 POC ABG pO2 Sodium Potassium Chloride Carbon Dioxide BUN Creatinine Glucose POC Glucose 153 H 140 H 150 H Lactic Acid Calcium Phosphorus Magnesium Direct Bilirubin ALT Alkaline Phosphatase Troponin T C-Reactive Protein Total Protein Albumin Triglycerides Cholesterol LDL Cholesterol Direct HDL Cholesterol Urine WBC (Auto) Urine Creatinine Urine Total Protein Vancomycin Trough Rheumatoid Factor Complement C4 Miscellaneous Test Crossmatch 10/13/16 10/13/16 10/13/16 06:22 09:20 12:29 WBC RBC Hgb Hct MCV MCH MCHC RDW Plt Count Lymph % (Auto) [place] % (Auto) Lymph # [place] # Baso # Seg Neutrophils % Seg Neuts % (Manual) Lymphocytes % (Manual) Monocytes % (Manual) Eosinophils % (Manual) Basophils % (Manual) Nucleated RBC % Seg Neutrophils # Seg Neutrophils # Man Lymphocytes # (Manual) Monocytes # (Manual) Eosinophils # (Manual) PT INR Fibrinogen dRVVT Confirm Interp Factor V Activity POC ABG pH POC ABG pCO2 POC ABG pO2 Sodium Potassium Chloride Carbon Dioxide BUN Creatinine Glucose POC Glucose 165 H 193 H Lactic Acid Calcium Phosphorus Magnesium Direct Bilirubin ALT Alkaline Phosphatase Troponin T C-Reactive Protein Total Protein Albumin Triglycerides Cholesterol LDL Cholesterol Direct HDL Cholesterol Urine WBC (Auto) Urine Creatinine Urine Total Protein Vancomycin Trough Rheumatoid Factor Complement C4 Miscellaneous Test Flexitest 1 H Crossmatch 10/13/16 10/13/16 10/13/16 18:09 Unknown Unknown WBC 23.4 H RBC 2.83 L Hgb 8.7 L Hct 26.1 L MCV MCH MCHC RDW 18.1 H Plt Count Lymph % (Auto) [place] % (Auto) Lymph # [place] # Baso # Seg Neutrophils % Seg Neuts % (Manual) Lymphocytes % (Manual) Monocytes % (Manual) Eosinophils % (Manual) Basophils % (Manual) Nucleated RBC % Seg Neutrophils # Seg Neutrophils # Man Lymphocytes # (Manual) Monocytes # (Manual) Eosinophils # (Manual) PT INR Fibrinogen dRVVT Confirm Interp Factor V Activity POC ABG pH POC ABG pCO2 POC ABG pO2 Sodium Potassium Chloride 95.8 L Carbon Dioxide BUN 82 H Creatinine 2.6 H Glucose 152 H POC Glucose 166 H Lactic Acid Calcium Phosphorus Magnesium Direct Bilirubin ALT Alkaline Phosphatase Troponin T C-Reactive Protein Total Protein Albumin Triglycerides Cholesterol LDL Cholesterol Direct HDL Cholesterol Urine WBC (Auto) Urine Creatinine Urine Total Protein Vancomycin Trough Rheumatoid Factor Complement C4 Miscellaneous Test Crossmatch 10/14/16 10/14/16 10/14/16 05:38 06:35 08:10 WBC 20.7 H RBC 2.81 L Hgb 8.4 L Hct 27.2 L MCV MCH MCHC RDW 19.4 H Plt Count Lymph % (Auto) [place] % (Auto) Lymph # [place] # Baso # Seg Neutrophils % Seg Neuts % (Manual) Lymphocytes % (Manual) Monocytes % (Manual) Eosinophils % (Manual) Basophils % (Manual) Nucleated RBC % Seg Neutrophils # Seg Neutrophils # Man Lymphocytes # (Manual) Monocytes # (Manual) Eosinophils # (Manual) PT INR Fibrinogen dRVVT Confirm Interp Factor V Activity POC ABG pH POC ABG pCO2 POC ABG pO2 Sodium Potassium Chloride Carbon Dioxide BUN 58 H Creatinine 1.9 H Glucose 169 H POC Glucose 195 H Lactic Acid Calcium Phosphorus Magnesium Direct Bilirubin ALT Alkaline Phosphatase Troponin T C-Reactive Protein Total Protein Albumin Triglycerides Cholesterol LDL Cholesterol Direct HDL Cholesterol Urine WBC (Auto) Urine Creatinine Urine Total Protein Vancomycin Trough Rheumatoid Factor Complement C4 Miscellaneous Test Crossmatch 10/14/16 10/14/16 10/14/16 11:44 17:13 23:28 WBC RBC Hgb Hct MCV MCH MCHC RDW Plt Count Lymph % (Auto) [place] % (Auto) Lymph # [place] # Baso # Seg Neutrophils % Seg Neuts % (Manual) Lymphocytes % (Manual) Monocytes % (Manual) Eosinophils % (Manual) Basophils % (Manual) Nucleated RBC % Seg Neutrophils # Seg Neutrophils # Man Lymphocytes # (Manual) Monocytes # (Manual) Eosinophils # (Manual) PT INR Fibrinogen dRVVT Confirm Interp Factor V Activity POC ABG pH POC ABG pCO2 POC ABG pO2 Sodium Potassium Chloride Carbon Dioxide BUN Creatinine Glucose POC Glucose 174 H 121 H 151 H Lactic Acid Calcium Phosphorus Magnesium Direct Bilirubin ALT Alkaline Phosphatase Troponin T C-Reactive Protein Total Protein Albumin Triglycerides Cholesterol LDL Cholesterol Direct HDL Cholesterol Urine WBC (Auto) Urine Creatinine Urine Total Protein Vancomycin Trough Rheumatoid Factor Complement C4 Miscellaneous Test Crossmatch 10/15/16 10/15/16 10/15/16 05:06 12:26 17:48 WBC RBC Hgb Hct MCV MCH MCHC RDW Plt Count Lymph % (Auto) [place] % (Auto) Lymph # [place] # Baso # Seg Neutrophils % Seg Neuts % (Manual) Lymphocytes % (Manual) Monocytes % (Manual) Eosinophils % (Manual) Basophils % (Manual) Nucleated RBC % Seg Neutrophils # Seg Neutrophils # Man Lymphocytes # (Manual) Monocytes # (Manual) Eosinophils # (Manual) PT INR Fibrinogen dRVVT Confirm Interp Factor V Activity POC ABG pH POC ABG pCO2 POC ABG pO2 Sodium Potassium Chloride Carbon Dioxide BUN Creatinine Glucose POC Glucose 151 H 149 H 153 H Lactic Acid Calcium Phosphorus Magnesium Direct Bilirubin ALT Alkaline Phosphatase Troponin T C-Reactive Protein Total Protein Albumin Triglycerides Cholesterol LDL Cholesterol Direct HDL Cholesterol Urine WBC (Auto) Urine Creatinine Urine Total Protein Vancomycin Trough Rheumatoid Factor Complement C4 Miscellaneous Test Crossmatch 10/15/16 10/15/16 10/16/16 Unknown Unknown 00:02 WBC 23.4 H RBC 2.78 L Hgb 8.5 L Hct 25.7 L MCV MCH MCHC RDW 18.7 H Plt Count Lymph % (Auto) [place] % (Auto) Lymph # [place] # Baso # Seg Neutrophils % Seg Neuts % (Manual) Lymphocytes % (Manual) Monocytes % (Manual) Eosinophils % (Manual) Basophils % (Manual) Nucleated RBC % Seg Neutrophils # Seg Neutrophils # Man Lymphocytes # (Manual) Monocytes # (Manual) Eosinophils # (Manual) PT INR Fibrinogen dRVVT Confirm Interp Factor V Activity POC ABG pH POC ABG pCO2 POC ABG pO2 Sodium Potassium Chloride Carbon Dioxide BUN 73 H Creatinine 2.3 H Glucose 120 H POC Glucose 137 H Lactic Acid Calcium Phosphorus Magnesium Direct Bilirubin ALT Alkaline Phosphatase Troponin T C-Reactive Protein Total Protein Albumin Triglycerides Cholesterol LDL Cholesterol Direct HDL Cholesterol Urine WBC (Auto) Urine Creatinine Urine Total Protein Vancomycin Trough Rheumatoid Factor Complement C4 Miscellaneous Test Crossmatch 10/16/16 10/16/16 10/16/16 05:44 06:25 06:25 WBC 22.5 H RBC 2.76 L Hgb 8.3 L Hct 25.2 L MCV MCH MCHC RDW 18.3 H Plt Count Lymph % (Auto) [place] % (Auto) Lymph # [place] # Baso # Seg Neutrophils % Seg Neuts % (Manual) Lymphocytes % (Manual) Monocytes % (Manual) Eosinophils % (Manual) Basophils % (Manual) Nucleated RBC % Seg Neutrophils # Seg Neutrophils # Man Lymphocytes # (Manual) Monocytes # (Manual) Eosinophils # (Manual) PT INR Fibrinogen dRVVT Confirm Interp Factor V Activity POC ABG pH POC ABG pCO2 POC ABG pO2 Sodium Potassium Chloride Carbon Dioxide BUN 92 H Creatinine 3.0 H Glucose 138 H POC Glucose 110 H Lactic Acid Calcium Phosphorus Magnesium Direct Bilirubin ALT Alkaline Phosphatase Troponin T C-Reactive Protein Total Protein Albumin Triglycerides Cholesterol LDL Cholesterol Direct HDL Cholesterol Urine WBC (Auto) Urine Creatinine Urine Total Protein Vancomycin Trough Rheumatoid Factor Complement C4 Miscellaneous Test Crossmatch 10/16/16 10/16/16 10/16/16 11:27 11:48 17:36 WBC RBC Hgb Hct MCV MCH MCHC RDW Plt Count Lymph % (Auto) [place] % (Auto) Lymph # [place] # Baso # Seg Neutrophils % Seg Neuts % (Manual) Lymphocytes % (Manual) Monocytes % (Manual) Eosinophils % (Manual) Basophils % (Manual) Nucleated RBC % Seg Neutrophils # Seg Neutrophils # Man Lymphocytes # (Manual) Monocytes # (Manual) Eosinophils # (Manual) PT INR Fibrinogen dRVVT Confirm Interp Factor V Activity POC ABG pH 7.582 H POC ABG pCO2 27.4 L POC ABG pO2 110 H Sodium Potassium Chloride Carbon Dioxide BUN Creatinine Glucose POC Glucose 121 H 133 H Lactic Acid Calcium Phosphorus Magnesium Direct Bilirubin ALT Alkaline Phosphatase Troponin T C-Reactive Protein Total Protein Albumin Triglycerides Cholesterol LDL Cholesterol Direct HDL Cholesterol Urine WBC (Auto) Urine Creatinine Urine Total Protein Vancomycin Trough Rheumatoid Factor Complement C4 Miscellaneous Test Crossmatch 10/16/16 10/17/16 10/17/16 20:48 04:24 04:24 WBC 21.4 H RBC 2.72 L Hgb 8.0 L Hct 25.2 L MCV MCH MCHC RDW 18.0 H Plt Count Lymph % (Auto) [place] % (Auto) Lymph # [place] # Baso # Seg Neutrophils % Seg Neuts % (Manual) Lymphocytes % (Manual) Monocytes % (Manual) Eosinophils % (Manual) Basophils % (Manual) Nucleated RBC % Seg Neutrophils # Seg Neutrophils # Man Lymphocytes # (Manual) Monocytes # (Manual) Eosinophils # (Manual) PT INR Fibrinogen dRVVT Confirm Interp Factor V Activity POC ABG pH 7.561 H POC ABG pCO2 24.4 L POC ABG pO2 77 L Sodium 148 H Potassium Chloride Carbon Dioxide BUN 104 H Creatinine 3.0 H Glucose 149 H POC Glucose Lactic Acid Calcium Phosphorus Magnesium Direct Bilirubin ALT Alkaline Phosphatase 138 H Troponin T C-Reactive Protein Total Protein 6.2 L Albumin 1.5 L Triglycerides Cholesterol LDL Cholesterol Direct HDL Cholesterol Urine WBC (Auto) Urine Creatinine Urine Total Protein Vancomycin Trough Rheumatoid Factor Complement C4 Miscellaneous Test Crossmatch 10/17/16 10/17/16 10/17/16 06:02 12:17 17:14 WBC RBC Hgb Hct MCV MCH MCHC RDW Plt Count Lymph % (Auto) [place] % (Auto) Lymph # [place] # Baso # Seg Neutrophils % Seg Neuts % (Manual) Lymphocytes % (Manual) Monocytes % (Manual) Eosinophils % (Manual) Basophils % (Manual) Nucleated RBC % Seg Neutrophils # Seg Neutrophils # Man Lymphocytes # (Manual) Monocytes # (Manual) Eosinophils # (Manual) PT INR Fibrinogen dRVVT Confirm Interp Factor V Activity POC ABG pH POC ABG pCO2 POC ABG pO2 Sodium Potassium Chloride Carbon Dioxide BUN Creatinine Glucose POC Glucose 170 H 167 H 126 H Lactic Acid Calcium Phosphorus Magnesium Direct Bilirubin ALT Alkaline Phosphatase Troponin T C-Reactive Protein Total Protein Albumin Triglycerides Cholesterol LDL Cholesterol Direct HDL Cholesterol Urine WBC (Auto) Urine Creatinine Urine Total Protein Vancomycin Trough Rheumatoid Factor Complement C4 Miscellaneous Test Crossmatch 10/17/16 10/18/16 10/18/16 23:17 04:00 04:00 WBC 20.7 H RBC 2.47 L Hgb 7.4 L Hct 22.9 L MCV MCH MCHC RDW 17.5 H Plt Count Lymph % (Auto) [place] % (Auto) Lymph # [place] # Baso # Seg Neutrophils % Seg Neuts % (Manual) Lymphocytes % (Manual) Monocytes % (Manual) Eosinophils % (Manual) Basophils % (Manual) Nucleated RBC % Seg Neutrophils # Seg Neutrophils # Man Lymphocytes # (Manual) Monocytes # (Manual) Eosinophils # (Manual) PT INR Fibrinogen dRVVT Confirm Interp Factor V Activity POC ABG pH POC ABG pCO2 POC ABG pO2 Sodium 149 H Potassium Chloride 107.9 H Carbon Dioxide 20 L BUN 117 H Creatinine 3.2 H Glucose 119 H POC Glucose 121 H Lactic Acid Calcium Phosphorus Magnesium Direct Bilirubin ALT Alkaline Phosphatase Troponin T C-Reactive Protein Total Protein Albumin Triglycerides Cholesterol LDL Cholesterol Direct HDL Cholesterol Urine WBC (Auto) Urine Creatinine Urine Total Protein Vancomycin Trough Rheumatoid Factor Complement C4 Miscellaneous Test Crossmatch 10/18/16 10/18/16 10/18/16 05:23 10:46 17:30 WBC RBC Hgb Hct MCV MCH MCHC RDW Plt Count Lymph % (Auto) [place] % (Auto) Lymph # [place] # Baso # Seg Neutrophils % Seg Neuts % (Manual) Lymphocytes % (Manual) Monocytes % (Manual) Eosinophils % (Manual) Basophils % (Manual) Nucleated RBC % Seg Neutrophils # Seg Neutrophils # Man Lymphocytes # (Manual) Monocytes # (Manual) Eosinophils # (Manual) PT INR Fibrinogen dRVVT Confirm Interp Factor V Activity POC ABG pH POC ABG pCO2 POC ABG pO2 Sodium Potassium Chloride Carbon Dioxide BUN Creatinine Glucose POC Glucose 119 H 155 H 124 H Lactic Acid Calcium Phosphorus Magnesium Direct Bilirubin ALT Alkaline Phosphatase Troponin T C-Reactive Protein Total Protein Albumin Triglycerides Cholesterol LDL Cholesterol Direct HDL Cholesterol Urine WBC (Auto) Urine Creatinine Urine Total Protein Vancomycin Trough Rheumatoid Factor Complement C4 Miscellaneous Test Crossmatch 10/19/16 10/19/16 10/19/16 04:00 04:00 05:25 WBC 17.4 H RBC 2.54 L Hgb 7.7 L Hct 23.6 L MCV MCH MCHC RDW 17.3 H Plt Count Lymph % (Auto) [place] % (Auto) Lymph # [place] # Baso # Seg Neutrophils % Seg Neuts % (Manual) Lymphocytes % (Manual) Monocytes % (Manual) Eosinophils % (Manual) Basophils % (Manual) Nucleated RBC % Seg Neutrophils # Seg Neutrophils # Man Lymphocytes # (Manual) Monocytes # (Manual) Eosinophils # (Manual) PT INR Fibrinogen dRVVT Confirm Interp Factor V Activity POC ABG pH POC ABG pCO2 POC ABG pO2 Sodium Potassium Chloride Carbon Dioxide BUN 72 H Creatinine 2.1 H Glucose 116 H POC Glucose 119 H Lactic Acid Calcium Phosphorus Magnesium Direct Bilirubin ALT Alkaline Phosphatase Troponin T C-Reactive Protein Total Protein Albumin Triglycerides Cholesterol LDL Cholesterol Direct HDL Cholesterol Urine WBC (Auto) Urine Creatinine Urine Total Protein Vancomycin Trough Rheumatoid Factor Complement C4 Miscellaneous Test Crossmatch 10/19/16 10/19/16 10/20/16 11:46 23:59 06:00 WBC RBC Hgb Hct MCV MCH MCHC RDW Plt Count Lymph % (Auto) [place] % (Auto) Lymph # [place] # Baso # Seg Neutrophils % Seg Neuts % (Manual) Lymphocytes % (Manual) Monocytes % (Manual) Eosinophils % (Manual) Basophils % (Manual) Nucleated RBC % Seg Neutrophils # Seg Neutrophils # Man Lymphocytes # (Manual) Monocytes # (Manual) Eosinophils # (Manual) PT INR Fibrinogen dRVVT Confirm Interp Factor V Activity POC ABG pH POC ABG pCO2 POC ABG pO2 Sodium Potassium Chloride Carbon Dioxide 17 L BUN 94 H Creatinine 2.7 H Glucose POC Glucose 116 H 117 H Lactic Acid Calcium Phosphorus Magnesium Direct Bilirubin ALT Alkaline Phosphatase Troponin T C-Reactive Protein Total Protein Albumin Triglycerides Cholesterol LDL Cholesterol Direct HDL Cholesterol Urine WBC (Auto) Urine Creatinine Urine Total Protein Vancomycin Trough Rheumatoid Factor Complement C4 Miscellaneous Test Crossmatch 10/20/16 10/20/16 10/20/16 06:00 11:49 16:00 WBC 19.7 H RBC 2.51 L Hgb 7.7 L Hct 23.5 L MCV MCH MCHC RDW 17.5 H Plt Count Lymph % (Auto) [place] % (Auto) Lymph # [place] # Baso # Seg Neutrophils % Seg Neuts % (Manual) Lymphocytes % (Manual) Monocytes % (Manual) Eosinophils % (Manual) Basophils % (Manual) Nucleated RBC % Seg Neutrophils # Seg Neutrophils # Man Lymphocytes # (Manual) Monocytes # (Manual) Eosinophils # (Manual) PT INR Fibrinogen dRVVT Confirm Interp Factor V Activity POC ABG pH POC ABG pCO2 POC ABG pO2 Sodium Potassium Chloride Carbon Dioxide BUN Creatinine Glucose POC Glucose 117 H Lactic Acid Calcium Phosphorus Magnesium Direct Bilirubin ALT Alkaline Phosphatase Troponin T C-Reactive Protein Total Protein Albumin Triglycerides Cholesterol LDL Cholesterol Direct HDL Cholesterol Urine WBC (Auto) Urine Creatinine Urine Total Protein Vancomycin Trough Rheumatoid Factor Complement C4 Miscellaneous Test Flexitest 1 H Crossmatch 10/20/16 10/20/16 10/21/16 18:36 23:39 04:00 WBC RBC Hgb Hct MCV MCH MCHC RDW Plt Count Lymph % (Auto) [place] % (Auto) Lymph # [place] # Baso # Seg Neutrophils % Seg Neuts % (Manual) Lymphocytes % (Manual) Monocytes % (Manual) Eosinophils % (Manual) Basophils % (Manual) Nucleated RBC % Seg Neutrophils # Seg Neutrophils # Man Lymphocytes # (Manual) Monocytes # (Manual) Eosinophils # (Manual) PT INR Fibrinogen dRVVT Confirm Interp Factor V Activity POC ABG pH POC ABG pCO2 POC ABG pO2 Sodium Potassium 5.4 H D Chloride Carbon Dioxide 15 L BUN 110 H Creatinine 3.0 H Glucose POC Glucose 127 H 114 H Lactic Acid Calcium Phosphorus Magnesium Direct Bilirubin ALT Alkaline Phosphatase Troponin T C-Reactive Protein Total Protein Albumin Triglycerides Cholesterol LDL Cholesterol Direct HDL Cholesterol Urine WBC (Auto) Urine Creatinine Urine Total Protein Vancomycin Trough Rheumatoid Factor Complement C4 Miscellaneous Test Crossmatch 10/21/16 10/21/16 10/22/16 05:54 23:46 05:18 WBC RBC Hgb Hct MCV MCH MCHC RDW Plt Count Lymph % (Auto) [place] % (Auto) Lymph # [place] # Baso # Seg Neutrophils % Seg Neuts % (Manual) Lymphocytes % (Manual) Monocytes % (Manual) Eosinophils % (Manual) Basophils % (Manual) Nucleated RBC % Seg Neutrophils # Seg Neutrophils # Man Lymphocytes # (Manual) Monocytes # (Manual) Eosinophils # (Manual) PT INR Fibrinogen dRVVT Confirm Interp Factor V Activity POC ABG pH POC ABG pCO2 POC ABG pO2 Sodium Potassium Chloride Carbon Dioxide BUN Creatinine Glucose POC Glucose 119 H 108 H 109 H Lactic Acid Calcium Phosphorus Magnesium Direct Bilirubin ALT Alkaline Phosphatase Troponin T C-Reactive Protein Total Protein Albumin Triglycerides Cholesterol LDL Cholesterol Direct HDL Cholesterol Urine WBC (Auto) Urine Creatinine Urine Total Protein Vancomycin Trough Rheumatoid Factor Complement C4 Miscellaneous Test Crossmatch 10/22/16 10/22/16 10/22/16 06:40 06:40 06:40 WBC 14.0 H RBC 2.03 L Hgb 7.0 L Hct 20.5 L MCV 98 H MCH 34 H MCHC 35 H RDW 17.8 H Plt Count Lymph % (Auto) [place] % (Auto) 9.9 H Lymph # [place] # 1.4 H Baso # 0.2 H Seg Neutrophils % 72.0 H Seg Neuts % (Manual) Lymphocytes % (Manual) Monocytes % (Manual) Eosinophils % (Manual) Basophils % (Manual) Nucleated RBC % Seg Neutrophils # 10.0 H Seg Neutrophils # Man Lymphocytes # (Manual) Monocytes # (Manual) Eosinophils # (Manual) PT INR Fibrinogen dRVVT Confirm Interp Factor V Activity POC ABG pH POC ABG pCO2 POC ABG pO2 Sodium 130 L D Potassium Chloride 92.4 L Carbon Dioxide 20 L BUN 50 H Creatinine 1.6 H Glucose 589 H* POC Glucose Lactic Acid Calcium 7.8 L D Phosphorus Magnesium 1.60 L Direct Bilirubin ALT Alkaline Phosphatase Troponin T C-Reactive Protein Total Protein Albumin Triglycerides Cholesterol LDL Cholesterol Direct HDL Cholesterol Urine WBC (Auto) Urine Creatinine Urine Total Protein Vancomycin Trough Rheumatoid Factor Complement C4 Miscellaneous Test Crossmatch 10/22/16 10/22/16 10/22/16 11:39 16:44 23:36 WBC RBC Hgb Hct MCV MCH MCHC RDW Plt Count Lymph % (Auto) [place] % (Auto) Lymph # [place] # Baso # Seg Neutrophils % Seg Neuts % (Manual) Lymphocytes % (Manual) Monocytes % (Manual) Eosinophils % (Manual) Basophils % (Manual) Nucleated RBC % Seg Neutrophils # Seg Neutrophils # Man Lymphocytes # (Manual) Monocytes # (Manual) Eosinophils # (Manual) PT INR Fibrinogen dRVVT Confirm Interp Factor V Activity POC ABG pH POC ABG pCO2 POC ABG pO2 Sodium Potassium Chloride Carbon Dioxide BUN Creatinine Glucose POC Glucose 142 H 163 H 123 H Lactic Acid Calcium Phosphorus Magnesium Direct Bilirubin ALT Alkaline Phosphatase Troponin T C-Reactive Protein Total Protein Albumin Triglycerides Cholesterol LDL Cholesterol Direct HDL Cholesterol Urine WBC (Auto) Urine Creatinine Urine Total Protein Vancomycin Trough Rheumatoid Factor Complement C4 Miscellaneous Test Crossmatch 10/23/16 10/23/16 10/23/16 04:58 06:00 12:12 WBC RBC Hgb Hct MCV MCH MCHC RDW Plt Count Lymph % (Auto) [place] % (Auto) Lymph # [place] # Baso # Seg Neutrophils % Seg Neuts % (Manual) Lymphocytes % (Manual) Monocytes % (Manual) Eosinophils % (Manual) Basophils % (Manual) Nucleated RBC % Seg Neutrophils # Seg Neutrophils # Man Lymphocytes # (Manual) Monocytes # (Manual) Eosinophils # (Manual) PT INR Fibrinogen dRVVT Confirm Interp Factor V Activity POC ABG pH POC ABG pCO2 POC ABG pO2 Sodium 133 L Potassium 3.5 L Chloride 96.1 L Carbon Dioxide 18 L BUN 76 H Creatinine 2.1 H Glucose POC Glucose 133 H 138 H Lactic Acid Calcium 8.3 L Phosphorus Magnesium Direct Bilirubin ALT Alkaline Phosphatase Troponin T C-Reactive Protein Total Protein Albumin Triglycerides Cholesterol LDL Cholesterol Direct HDL Cholesterol Urine WBC (Auto) Urine Creatinine Urine Total Protein Vancomycin Trough Rheumatoid Factor Complement C4 Miscellaneous Test Crossmatch 10/23/16 10/23/16 10/24/16 16:53 23:37 04:00 WBC RBC Hgb Hct MCV MCH MCHC RDW Plt Count Lymph % (Auto) [place] % (Auto) Lymph # [place] # Baso # Seg Neutrophils % Seg Neuts % (Manual) Lymphocytes % (Manual) Monocytes % (Manual) Eosinophils % (Manual) Basophils % (Manual) Nucleated RBC % Seg Neutrophils # Seg Neutrophils # Man Lymphocytes # (Manual) Monocytes # (Manual) Eosinophils # (Manual) PT INR Fibrinogen dRVVT Confirm Interp Factor V Activity POC ABG pH POC ABG pCO2 POC ABG pO2 Sodium 131 L Potassium Chloride 94.5 L Carbon Dioxide 19 L BUN 97 H Creatinine 2.6 H Glucose 110 H POC Glucose 125 H 123 H Lactic Acid Calcium 8.3 L Phosphorus Magnesium Direct Bilirubin ALT Alkaline Phosphatase Troponin T C-Reactive Protein Total Protein Albumin Triglycerides Cholesterol LDL Cholesterol Direct HDL Cholesterol Urine WBC (Auto) Urine Creatinine Urine Total Protein Vancomycin Trough Rheumatoid Factor Complement C4 Miscellaneous Test Crossmatch 10/24/16 10/24/16 07:49 Unknown WBC RBC Hgb 6.0 L Hct 19.7 L* MCV MCH MCHC RDW Plt Count Lymph % (Auto) [place] % (Auto) Lymph # [place] # Baso # Seg Neutrophils % Seg Neuts % (Manual) Lymphocytes % (Manual) Monocytes % (Manual) Eosinophils % (Manual) Basophils % (Manual) Nucleated RBC % Seg Neutrophils # Seg Neutrophils # Man Lymphocytes # (Manual) Monocytes # (Manual) Eosinophils # (Manual) PT INR Fibrinogen dRVVT Confirm Interp Factor V Activity POC ABG pH POC ABG pCO2 POC ABG pO2 Sodium Potassium Chloride Carbon Dioxide BUN Creatinine Glucose POC Glucose Lactic Acid Calcium Phosphorus Magnesium Direct Bilirubin ALT Alkaline Phosphatase Troponin T C-Reactive Protein Total Protein Albumin Triglycerides Cholesterol LDL Cholesterol Direct HDL Cholesterol Urine WBC (Auto) Urine Creatinine Urine Total Protein Vancomycin Trough Rheumatoid Factor Complement C4 Miscellaneous Test Crossmatch See Detail Allied health notes reviewed: RT
--- NOTE | 2016-10-24 10:12 | Progress Note ---
Assessment and Plan Assessment: 1) Recurrent Sepsis: resolved - likely abdominal wall abscess at surgical site -S/p multiple episodes of sepsis - initially due to presumed aspiration pneumonia, then septic episode on 09/23 from Candidemia. Then from - peritonitis from gastric perforation +/- UTI. Current septic episode from surgical site infection. -CRP 19 --> 22 -Procalcitonin=24 --> 16 --> 4.3 (improving) -repeat CT abdomen no leak no abscess -repeat blood cx - neg -Wound cx from surgical site infection + MDR Pseudomonas and Silvia albicans 2) Peritonitis: from gastric perforation from dislodged PEG with significant ascites -S/P exlap, repair of gastric perforation with wedge gastrectomy, abdominal washout, drain placement on 10/05. 3) Candidemia: -Blood cultures positive for Silvia albicans on 09/23 -Blood cultures positive on 09/25 -Blood cutlures negative on 09/30 -PICC line changed on 10/03 -Source ? gastric perf (PEG placed on 09/20) +/- TPN +/- central lines -TTE 10/07 no vegetations -PICC exchanged on 10/03 -fully treated with micafungin for 14 days last day 10/13 4) CA-UTI s/p gutierrez exchanged 5) Diarrhea - ? etiology ? antibiotic-induced, not better 6) Initial presumed aspiration pneumonia 7) Presumed UTI: urine cx 09/23 multiple species 8) Respiratory failure s/p trach 9) Recent CVA-left MCA CVA 10) Uncontrolled HTN 11) Acute on CKD 12) Extensive back skin peeling ? burn from gastric secretions. Doubt allergic reaction 13) Severe anemia; ? from GI bleed Plan: -continue zosyn in view of MDR Pseudomonas only sens to zosyn day 3 of 10 -continue fluconazole day 5 of 10 -contact isolation in view of MDR Pseudomonas -discussed with ICU staff Thank you Dr Means for your consultation, will follow up with you. Pauline Carias MD Infectious Diseases Specialist [facility] ([facility] M [phone] O [phone] Subjective Date of service: 10/24/16 Principal diagnosis: Acute resp failure on MVS; S/P Acute CVA; Acute Encephalopathy; JUANITA Interval history: Somnolent open eyes spontaneously, not following commands, on the vent via trach. No fever. Microbiology: Blood cultures: 7/25 neg 8 Silvia albicans 09/25 Silvia 09/29 neg 10/07 NGTD Urine cultures: 09/10 neg 09/13 neg 8 10-100K mixed species 10/07 pending Respiratory cultures: 09/07 neg 09/13 neg 8 neg Wound cultures: 10/17 abd wall wound purulence + Pseudomonas MDR Stool cultures: Current Antimicrobials: fluconazole 10/19 zosyn 10/21 Previous Antimicrobials: Zosyn 10/07 Vancomycin PO 10/01 Metronidazole 09/25 Micafungin 09/27-10/13 Meropenem 10/10 Vanco 10/17 Objective - Exam Narrative Exam: General appearance: alert, non verbal, on the vent via trach no following commands Eyes: anicteric sclera, moist conjunctivae; PERRLA HENT: Atraumatic; oropharynx limited; Normal external ears. +NGT with greenish secretion Neck: +trach in place; supple, no thyromegaly or lymphadenopathy Lungs: coarse BS bilateral CV: tachycardic Abdomen: Soft, non-tender, +drain with purulent drainage, + diarrhea via rectal tube leaking. +old PEG site no drainage. Right sided Surgical site packed still draining serous fluid Extremities: +peripheral edema no extremity lymphadenopathy Skin: Julian sub mammary ulcers, extensive skin peeling on back Psych: somnolent . Neuro: somnolent non verbal on the vent. Lines: left arm PICC placed on 10/03 - Constitutional Vitals: Vital Signs Temp Pulse Resp BP Pulse Ox 99.2 F 100 H 16 122/78 99 10/24/16 08:00 10/24/16 09:30 10/24/16 09:30 10/24/16 09:30 10/24/16 10:06 Temperature -Last 24 Hours Temperature 99.2 F Temperature 98.8 F Temperature 99 F Temperature 98.8 F Temperature 98.6 F Temperature 98.9 F - Labs CBC & Chem 7: 10/24/16 07:49 10/24/16 04:00 Labs: Abnormal lab results 10/20/16 10/22/16 10/22/16 Range/Units 16:00 11:39 16:44 Hgb (10.1-14.3) gm/dl Hct (30.3-42.9) % Sodium (137-145) mmol/L Chloride (98-107) mmol/L Carbon Dioxide (22-30) mmol/L BUN (7-17) mg/dL Creatinine (0.7-1.2) mg/dL Glucose (65-100) mg/dL POC Glucose 142 H 163 H (70-105) Calcium (8.4-10.2) mg/dL Miscellaneous Test Flexitest 1 H Crossmatch 10/23/16 10/23/16 10/23/16 Range/Units 12:12 16:53 23:37 Hgb (10.1-14.3) gm/dl Hct (30.3-42.9) % Sodium (137-145) mmol/L Chloride (98-107) mmol/L Carbon Dioxide (22-30) mmol/L BUN (7-17) mg/dL Creatinine (0.7-1.2) mg/dL Glucose (65-100) mg/dL POC Glucose 138 H 125 H 123 H (70-105) Calcium (8.4-10.2) mg/dL Miscellaneous Test Crossmatch 10/24/16 10/24/16 10/24/16 Range/Units 04:00 07:49 Unknown Hgb 6.0 L (10.1-14.3) gm/dl Hct 19.7 L* (30.3-42.9) % Sodium 131 L (137-145) mmol/L Chloride 94.5 L (98-107) mmol/L Carbon Dioxide 19 L (22-30) mmol/L BUN 97 H (7-17) mg/dL Creatinine 2.6 H (0.7-1.2) mg/dL Glucose 110 H (65-100) mg/dL POC Glucose (70-105) Calcium 8.3 L (8.4-10.2) mg/dL Miscellaneous Test Crossmatch See Detail
--- NOTE | 2016-10-24 12:22 | Progress Note ---
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 * Acute hypoxic respiratory failure * Left renal artery stenosis * Metabolic acidosis - improved * Anemia * Hyponatremia - multifactorial Plan: * Hemodialysis today - UF as tolerated * Transfuse available blood products with dialysis * Pressors prn MAP>65 * Rate control per cardiology * Abx/antifungal per ID * Surgery recommendations noted * Vent management per critical care * Dose medications for renal function * Avoid potential nephrotoxins Subjective Date of service: 10/24/16 Principal diagnosis: Acute resp failure on MVS; S/P Acute CVA; Acute Encephalopathy; JUANITA Interval history: No acute events overnight. Hb declined to 6.0 Objective - Vital Signs Vital signs: Vital Signs - 12hr 10/24/16 10/24/16 10/24/16 00:30 01:00 01:30 Temperature Pulse Rate 109 H 110 H 105 H Respiratory 20 18 17 Rate Respiratory Rate [ Generalized] Blood Pressure 148/76 146/80 140/80 O2 Sat by Pulse 100 100 100 Oximetry O2 Sat by Pulse Oximetry [ Assessment] 10/24/16 10/24/16 10/24/16 01:52 02:00 02:30 Temperature Pulse Rate 117 H 112 H 109 H Respiratory 19 16 Rate Respiratory Rate [ Generalized] Blood Pressure 160/89 150/85 152/79 O2 Sat by Pulse 100 100 Oximetry O2 Sat by Pulse Oximetry [ Assessment] 10/24/16 10/24/16 10/24/16 03:00 03:30 03:33 Temperature 98.8 F Pulse Rate 112 H 111 H Respiratory 17 16 Rate Respiratory Rate [ Generalized] Blood Pressure 157/86 158/88 O2 Sat by Pulse 100 100 Oximetry O2 Sat by Pulse Oximetry [ Assessment] 10/24/16 10/24/16 10/24/16 04:00 04:09 04:30 Temperature Pulse Rate 111 H 114 H 113 H Respiratory 16 18 Rate Respiratory 14 Rate [ Generalized] Blood Pressure 149/82 149/82 158/89 O2 Sat by Pulse 100 100 100 Oximetry O2 Sat by Pulse Oximetry [ Assessment] 10/24/16 10/24/16 10/24/16 05:00 05:08 05:30 Temperature Pulse Rate 115 H 113 H 97 H Respiratory 19 20 Rate Respiratory Rate [ Generalized] Blood Pressure 159/89 159/89 148/77 O2 Sat by Pulse 100 100 Oximetry O2 Sat by Pulse Oximetry [ Assessment] 10/24/16 10/24/16 10/24/16 06:00 06:30 07:00 Temperature Pulse Rate 109 H 114 H 113 H Respiratory 18 19 16 Rate Respiratory Rate [ Generalized] Blood Pressure 158/84 166/82 166/82 O2 Sat by Pulse 100 100 Oximetry O2 Sat by Pulse Oximetry [ Assessment] 10/24/16 10/24/16 10/24/16 07:08 07:13 07:30 Temperature Pulse Rate 118 H 122 H 109 H Respiratory 26 H 18 Rate Respiratory Rate [ Generalized] Blood Pressure 147/80 147/80 132/78 O2 Sat by Pulse 96 97 100 Oximetry O2 Sat by Pulse Oximetry [ Assessment] 10/24/16 10/24/16 10/24/16 07:37 07:38 08:00 Temperature 99.2 F Pulse Rate 107 H Respiratory 20 Rate Respiratory Rate [ Generalized] Blood Pressure 133/56 O2 Sat by Pulse 100 100 Oximetry O2 Sat by Pulse 99 Oximetry [ Assessment] 10/24/16 10/24/16 10/24/16 08:30 09:00 09:24 Temperature Pulse Rate 111 H 119 H 109 H Respiratory 17 35 H Rate Respiratory Rate [ Generalized] Blood Pressure 145/73 145/73 143/82 O2 Sat by Pulse 100 92 Oximetry O2 Sat by Pulse Oximetry [ Assessment] 10/24/16 10/24/16 10/24/16 09:30 09:50 10:00 Temperature Pulse Rate 100 H 102 H 105 H Respiratory 16 17 15 Rate Respiratory Rate [ Generalized] Blood Pressure 122/78 122/78 119/80 O2 Sat by Pulse 100 100 100 Oximetry O2 Sat by Pulse Oximetry [ Assessment] 10/24/16 10/24/16 10/24/16 10:06 10:10 10:20 Temperature Pulse Rate 105 H 105 H Respiratory 15 18 Rate Respiratory Rate [ Generalized] Blood Pressure 119/80 119/80 O2 Sat by Pulse 99 100 100 Oximetry O2 Sat by Pulse Oximetry [ Assessment] 10/24/16 10/24/16 10/24/16 10:30 10:40 10:45 Temperature 99.5 F Pulse Rate 106 H 104 H 108 H Respiratory 19 17 20 Rate Respiratory Rate [ Generalized] Blood Pressure 136/85 136/85 136/85 O2 Sat by Pulse 100 100 100 Oximetry O2 Sat by Pulse Oximetry [ Assessment] 10/24/16 10/24/16 10/24/16 11:00 11:30 12:00 Temperature 100 F H 100.3 F H 99.1 F Pulse Rate 118 H 111 H 110 H Respiratory 24 21 18 Rate Respiratory Rate [ Generalized] Blood Pressure 119/80 149/83 157/91 O2 Sat by Pulse 100 97 100 Oximetry O2 Sat by Pulse Oximetry [ Assessment] - General Appearance General appearance: intubated (via trach) EENT: ATNC Respiratory: Present: Other (coarse rhonchi) Cardiology: tachycardia, S1S2 Gastrointestinal: hypoactive bowel sounds, other (right mid quadrant wound - packed. Epigastric wound - packed) Neurologic: other (awake, eyes open, not interactive) Musculoskeletal: other (+dependent edema) - Lab 10/24/16 07:49 10/24/16 04:00 Most recent lab results Calcium 8.3 mg/dL (8.4-10.2) L 10/24/16 04:00 Phosphorus 3.40 mg/dL (2.5-4.5) 10/24/16 04:00 Magnesium 2.10 mg/dL (1.7-2.3) 10/24/16 04:00 Urine Creatinine 54.8 mg/dL (0.1-20.0) H 09/21/16 12:00 Urine Sodium 36 mEq/L 09/16/16 19:19 Urine Total Protein 16 mg/dL (5-11.8) H 09/16/16 19:19
--- NOTE | 2016-10-24 15:13 | Progress Note ---
Assessment and Plan - Patient Problems (1) Acute respiratory failure with hypoxia Current Visit: Yes Status: Acute (2) Dislodged gastrostomy tube Current Visit: Yes Status: Acute Plan to address problem: continue local wound care and antibiotics continue TPN Subjective Date of service: 10/24/16 Patient Reports: Positive: other (no changes per nurses) Objective Vital Signs - 12hr 10/24/16 10/24/16 10/24/16 03:30 03:33 04:00 Temperature 98.8 F Pulse Rate 111 H 111 H Respiratory 16 16 Rate Respiratory 14 Rate [ Generalized] Blood Pressure 158/88 149/82 O2 Sat by Pulse 100 100 Oximetry O2 Sat by Pulse Oximetry [ Assessment] 10/24/16 10/24/16 10/24/16 04:09 04:30 05:00 Temperature Pulse Rate 114 H 113 H 115 H Respiratory 18 19 Rate Respiratory Rate [ Generalized] Blood Pressure 149/82 158/89 159/89 O2 Sat by Pulse 100 100 100 Oximetry O2 Sat by Pulse Oximetry [ Assessment] 10/24/16 10/24/16 10/24/16 05:08 05:30 06:00 Temperature Pulse Rate 113 H 97 H 109 H Respiratory 20 18 Rate Respiratory Rate [ Generalized] Blood Pressure 159/89 148/77 158/84 O2 Sat by Pulse 100 100 Oximetry O2 Sat by Pulse Oximetry [ Assessment] 10/24/16 10/24/16 10/24/16 06:30 07:00 07:08 Temperature Pulse Rate 114 H 113 H 118 H Respiratory 19 16 Rate Respiratory Rate [ Generalized] Blood Pressure 166/82 166/82 147/80 O2 Sat by Pulse 100 96 Oximetry O2 Sat by Pulse Oximetry [ Assessment] 10/24/16 10/24/16 10/24/16 07:13 07:30 07:37 Temperature Pulse Rate 122 H 109 H Respiratory 26 H 18 Rate Respiratory Rate [ Generalized] Blood Pressure 147/80 132/78 O2 Sat by Pulse 97 100 Oximetry O2 Sat by Pulse 99 Oximetry [ Assessment] 10/24/16 10/24/16 10/24/16 07:38 08:00 08:30 Temperature 99.2 F Pulse Rate 107 H 111 H Respiratory 20 17 Rate Respiratory Rate [ Generalized] Blood Pressure 133/56 145/73 O2 Sat by Pulse 100 100 100 Oximetry O2 Sat by Pulse Oximetry [ Assessment] 09/06/0610/24/16 10/24/16 09:00 09:24 09:30 Temperature Pulse Rate 119 H 109 H 100 H Respiratory 35 H 16 Rate Respiratory Rate [ Generalized] Blood Pressure 145/73 143/82 122/78 O2 Sat by Pulse 92 100 Oximetry O2 Sat by Pulse Oximetry [ Assessment] 10/24/16 10/24/16 10/24/16 09:50 10:00 10:06 Temperature Pulse Rate 102 H 105 H Respiratory 17 15 Rate Respiratory Rate [ Generalized] Blood Pressure 122/78 119/80 O2 Sat by Pulse 100 100 99 Oximetry O2 Sat by Pulse Oximetry [ Assessment] 10/24/16 10/24/16 10/24/16 10:10 10:20 10:30 Temperature Pulse Rate 105 H 105 H 106 H Respiratory 15 18 19 Rate Respiratory Rate [ Generalized] Blood Pressure 119/80 119/80 136/85 O2 Sat by Pulse 100 100 100 Oximetry O2 Sat by Pulse Oximetry [ Assessment] 10/24/16 10/24/16 10/24/16 10:40 10:45 11:00 Temperature 99.5 F 100 F H Pulse Rate 104 H 108 H 118 H Respiratory 17 20 24 Rate Respiratory Rate [ Generalized] Blood Pressure 136/85 136/85 119/80 O2 Sat by Pulse 100 100 100 Oximetry O2 Sat by Pulse Oximetry [ Assessment] 10/24/16 10/24/16 10/24/16 11:30 12:00 12:30 Temperature 100.3 F H 100.3 F H 100.1 F H Pulse Rate 111 H 110 H 111 H Respiratory 21 18 20 Rate Respiratory Rate [ Generalized] Blood Pressure 149/83 157/91 157/91 O2 Sat by Pulse 97 100 100 Oximetry O2 Sat by Pulse Oximetry [ Assessment] 10/24/16 10/24/16 10/24/16 13:00 13:30 14:00 Temperature 99.6 F 99.9 F H 99.5 F Pulse Rate 113 H 113 H 116 H Respiratory 19 19 16 Rate Respiratory Rate [ Generalized] Blood Pressure 139/88 155/86 165/89 O2 Sat by Pulse 98 100 100 Oximetry O2 Sat by Pulse Oximetry [ Assessment] 10/24/16 10/24/16 14:02 14:21 Temperature Pulse Rate 116 H Respiratory 16 Rate Respiratory Rate [ Generalized] Blood Pressure 165/89 O2 Sat by Pulse 100 Oximetry O2 Sat by Pulse Oximetry [ Assessment] - Abdomen soft, other (port sites and old G tube site with puruelnt drainage) - Labs 10/24/16 07:49 10/24/16 04:00 Diabetes panel 10/24/16 Range/Units 04:00 Sodium 131 L (137-145) mmol/L Potassium 4.4 D (3.6-5.0) mmol/L Chloride 94.5 L (98-107) mmol/L Carbon Dioxide 19 L (22-30) mmol/L BUN 97 H (7-17) mg/dL Creatinine 2.6 H (0.7-1.2) mg/dL Glucose 110 H (65-100) mg/dL Calcium 8.3 L (8.4-10.2) mg/dL Calcium panel 10/24/16 Range/Units 04:00 Calcium 8.3 L (8.4-10.2) mg/dL Phosphorus 3.40 (2.5-4.5) mg/dL Pituitary panel 10/24/16 Range/Units 04:00 Sodium 131 L (137-145) mmol/L Potassium 4.4 D (3.6-5.0) mmol/L Chloride 94.5 L (98-107) mmol/L Carbon Dioxide 19 L (22-30) mmol/L BUN 97 H (7-17) mg/dL Creatinine 2.6 H (0.7-1.2) mg/dL Glucose 110 H (65-100) mg/dL Calcium 8.3 L (8.4-10.2) mg/dL Adrenal panel 10/24/16 Range/Units 04:00 Sodium 131 L (137-145) mmol/L Potassium 4.4 D (3.6-5.0) mmol/L Chloride 94.5 L (98-107) mmol/L Carbon Dioxide 19 L (22-30) mmol/L BUN 97 H (7-17) mg/dL Creatinine 2.6 H (0.7-1.2) mg/dL Glucose 110 H (65-100) mg/dL Calcium 8.3 L (8.4-10.2) mg/dL
[2016-10-24] MEDS: HEPARIN IV PRN (15:47)
[2016-10-24] MEDS: ZOFRAN IV PRN (15:54)
[2016-10-24] MEDS: APRESOLINE IV PRN (15:57)
[2016-10-24] MEDS ORDERED: HEPARIN 10,000 UNITS/10 ML ONE (16:37)
[2016-10-24] MEDS ORDERED: NACL 0.9% 100 ML IV PRN (18:34)
[2016-10-24] MEDS: HEPARIN 10,000 UNITS/10 ML IV PRN (18:51)
[2016-10-24] MEDS: DIFLUCAN 200 MG/100 ML BAG IV SCH (18:53)
[2016-10-24] MEDS ORDERED: NACL 0.9 (PRIMING MACHINE ONLY DIALYSIS) MC ONE (19:38)
[2016-10-24] MEDS ORDERED: TPN ADULT 2,016 ML IV SCH ×2 (20:00)
[2016-10-24] MEDS: INTRALIPID 20% 250 ML IV SCH (21:09)
[2016-10-24 23:13] LABS: Hematocrit 27.5 % (30.3-42.9); Hemoglobin 9.4 gm/dl (10.1-14.3)
[2016-10-25] MEDS: LOPRESSOR IV SCH ×6 (02:02→21:50)
[2016-10-25 04:12] LABS: Basophils # (Auto) 0.1 K/mm3 (0.0-0.1); Eosinophils # (Auto) 0.1 K/mm3 (0.0-0.4); Eosinophils % (Auto) 0.7 % (0.0-4.3); Hematocrit 26.2 % (30.3-42.9); Mean Corpuscular HGB Conc 34 % (30-34); Mean Corpuscular Hemoglobin 30 pg (28-32); Mean Corpuscular Volume 88 fl (79-97); Monocytes # (Auto) 1.5 K/mm3 (0.0-0.8); Monocytes % (Auto) 10.7 % (0.0-7.3); Platelet Count 324 K/mm3 (140-440); Red Blood Count 2.98 M/mm3 (3.65-5.03); Red Cell Distribution Width 16.6 % (13.2-15.2)
[2016-10-25 04:37] LABS: BUN/Creatinine Ratio 31.87; Calcium 8.3 mg/dL (8.4-10.2)
[2016-10-25] MEDS: fentaNYL DRIP Premix 2,000 MCG/100 ML BAG IV SCH (05:43)
[2016-10-25] MEDS: ZOSYN/NS 2.25 GM/50ML 2.25 GM/50 ML BAG IV SCH ×3 (05:49→22:35)
[2016-10-25] MEDS: APRESOLINE IV PRN ×3 (06:51→23:53)
--- NOTE | 2016-10-25 08:43 | Progress Note ---
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 * Acute hypoxic respiratory failure * Left renal artery stenosis * Metabolic acidosis - improved * Anemia * Hyponatremia - multifactorial Plan: * Uneventful hemodialysis yesterday * Her serum creatinine noted to be lower and urine output seems to be picking up as well. Shall check her chemistries tomorrow before her next dialysis treatment * Transfuse available blood products with dialysis * Pressors prn MAP>65 * Rate control per cardiology * Abx/antifungal per ID * Surgery recommendations noted * Vent management per critical care * Dose medications for renal function * Avoid potential nephrotoxins Subjective Date of service: 10/25/16 Principal diagnosis: Acute resp failure on MVS; S/P Acute CVA; Acute Encephalopathy; JUANITA Interval history: Patient remains in the intensive care unit. Currently on the ventilator. On 30 % FiO2. Opens her eyes. She is receiving TPN currently. A Herndon catheter as well as rectal tube is in place Objective - Vital Signs Vital signs: Vital Signs - 12hr 10/24/16 10/24/16 10/24/16 21:00 21:12 21:30 Temperature Pulse Rate 134 H 135 H 121 H Pulse Rate [ From Monitor] Respiratory 24 21 Rate Respiratory Rate [ Generalized] Blood Pressure 158/98 158/98 167/97 O2 Sat by Pulse 100 100 Oximetry O2 Sat by Pulse Oximetry [ Assessment] 10/24/16 10/24/16 10/24/16 21:48 22:00 22:27 Temperature Pulse Rate 121 H 123 H 129 H Pulse Rate [ From Monitor] Respiratory 21 13 21 Rate Respiratory 21 Rate [ Generalized] Blood Pressure 180/96 O2 Sat by Pulse 100 100 100 Oximetry O2 Sat by Pulse Oximetry [ Assessment] 10/24/16 10/24/16 10/24/16 22:30 23:00 23:01 Temperature 100.8 F H Pulse Rate 129 H 130 H Pulse Rate [ From Monitor] Respiratory 25 H 21 Rate Respiratory Rate [ Generalized] Blood Pressure 175/101 171/103 O2 Sat by Pulse 100 100 Oximetry O2 Sat by Pulse Oximetry [ Assessment] 10/24/16 10/24/16 10/24/16 23:06 23:08 23:30 Temperature Pulse Rate 127 H 131 H Pulse Rate [ From Monitor] Respiratory 24 Rate Respiratory Rate [ Generalized] Blood Pressure 169/101 169/96 O2 Sat by Pulse 100 100 Oximetry O2 Sat by Pulse 100 Oximetry [ Assessment] 10/25/16 10/25/16 10/25/16 00:00 00:14 00:16 Temperature Pulse Rate 135 H 131 H 135 H Pulse Rate [ 130 H From Monitor] Respiratory 27 H 23 21 Rate Respiratory Rate [ Generalized] Blood Pressure 140/98 140/98 140/98 O2 Sat by Pulse 99 99 100 Oximetry O2 Sat by Pulse Oximetry [ Assessment] 10/25/16 10/25/16 10/25/16 00:31 01:00 01:30 Temperature Pulse Rate 131 H 133 H 133 H Pulse Rate [ From Monitor] Respiratory 31 H 36 H 31 H Rate Respiratory Rate [ Generalized] Blood Pressure 140/92 151/94 157/92 O2 Sat by Pulse 99 99 99 Oximetry O2 Sat by Pulse Oximetry [ Assessment] 10/25/16 10/25/16 10/25/16 01:55 02:00 02:02 Temperature Pulse Rate 120 H 136 H 136 H Pulse Rate [ From Monitor] Respiratory 21 25 H Rate Respiratory Rate [ Generalized] Blood Pressure 156/94 147/99 O2 Sat by Pulse 100 99 Oximetry O2 Sat by Pulse Oximetry [ Assessment] 10/25/16 10/25/16 10/25/16 02:30 03:00 03:07 Temperature Pulse Rate 120 H 125 H 128 H Pulse Rate [ From Monitor] Respiratory 22 24 Rate Respiratory Rate [ Generalized] Blood Pressure 138/90 163/94 163/94 O2 Sat by Pulse 100 99 96 Oximetry O2 Sat by Pulse Oximetry [ Assessment] 10/25/16 10/25/16 10/25/16 03:30 04:00 04:30 Temperature 101.5 F H Pulse Rate 123 H 130 H 132 H Pulse Rate [ 128 H From Monitor] Respiratory 24 25 H 26 H Rate Respiratory 21 Rate [ Generalized] Blood Pressure 138/89 147/87 164/68 O2 Sat by Pulse 100 100 100 Oximetry O2 Sat by Pulse Oximetry [ Assessment] 10/25/16 10/25/16 10/25/16 05:00 05:30 05:45 Temperature Pulse Rate 136 H 134 H 119 H Pulse Rate [ From Monitor] Respiratory 22 Rate Respiratory Rate [ Generalized] Blood Pressure 164/74 164/74 O2 Sat by Pulse 100 99 100 Oximetry O2 Sat by Pulse Oximetry [ Assessment] 10/25/16 10/25/16 10/25/16 05:47 06:00 06:30 Temperature Pulse Rate 134 H 119 H 124 H Pulse Rate [ From Monitor] Respiratory 24 28 H Rate Respiratory Rate [ Generalized] Blood Pressure 167/100 157/94 165/96 O2 Sat by Pulse 99 97 Oximetry O2 Sat by Pulse Oximetry [ Assessment] 10/25/16 10/25/16 10/25/16 06:51 07:00 07:30 Temperature Pulse Rate 123 H 123 H 127 H Pulse Rate [ From Monitor] Respiratory 28 H 25 H Rate Respiratory Rate [ Generalized] Blood Pressure 173/96 173/96 O2 Sat by Pulse 94 96 Oximetry O2 Sat by Pulse Oximetry [ Assessment] 10/25/16 10/25/16 07:50 08:00 Temperature 100.7 F H Pulse Rate 127 H Pulse Rate [ From Monitor] Respiratory 26 H Rate Respiratory Rate [ Generalized] Blood Pressure 147/80 O2 Sat by Pulse 98 97 Oximetry O2 Sat by Pulse Oximetry [ Assessment] - General Appearance General appearance: well-developed, well-nourished, other (on the ventilator via tracheostomy tube) EENT: PERRL, mucous membranes moist Neck: no JVD, no thyromegaly, no carotid bruit, supple Respiratory: Present: Ronchi (bilateral scattered rhonchi) Cardiology: regular, S1S2, no murmurs Gastrointestinal: normoactive bowel sounds, other (dressing noted over her abdominal wall) Integumentary: other (1+ edema) - Lab 10/25/16 04:00 10/25/16 04:00 Most recent lab results Calcium 8.3 mg/dL (8.4-10.2) L 10/25/16 04:00 Phosphorus 1.60 mg/dL (2.5-4.5) L D 10/25/16 04:00 Magnesium 1.80 mg/dL (1.7-2.3) 10/25/16 04:00 Urine Creatinine 54.8 mg/dL (0.1-20.0) H 09/21/16 12:00 Urine Sodium 36 mEq/L 09/16/16 19:19 Urine Total Protein 16 mg/dL (5-11.8) H 09/16/16 19:19
[2016-10-25] MEDS: PROTONIX IV SCH (09:25)
--- NOTE | 2016-10-25 10:27 | Progress Note ---
Assessment and Plan Assessment: 1) Recurrent Sepsis: fever restarted on 10/24 - likely abdominal wall abscess at surgical site -S/p multiple episodes of sepsis - initially due to presumed aspiration pneumonia, then septic episode on 09/23 from Candidemia. Then from - peritonitis from gastric perforation +/- UTI. Current septic episode from surgical site infection. -CRP 19 --> 22 -Procalcitonin=24 --> 16 --> 4.3 -repeat CT abdomen no leak no abscess -repeat blood cx - neg -Wound cx from surgical site infection + MDR Pseudomonas and Silvia albicans 2) Peritonitis: from gastric perforation from dislodged PEG with significant ascites -S/P exlap, repair of gastric perforation with wedge gastrectomy, abdominal washout, drain placement on 10/05. 3) Candidemia: -Blood cultures positive for Silvia albicans on 09/23 -Blood cultures positive on 09/25 -Blood cutlures negative on 09/30 -PICC line changed on 10/03 -Source ? gastric perf (PEG placed on 09/20) +/- TPN +/- central lines -TTE 10/07 no vegetations -PICC exchanged on 10/03 -fully treated with micafungin for 14 days last day 10/13 4) CA-UTI s/p gutierrez exchanged 5) Diarrhea - ? etiology ? antibiotic-induced, not better 6) Initial presumed aspiration pneumonia 7) Presumed UTI: urine cx 09/23 multiple species 8) Respiratory failure s/p trach 9) Recent CVA-left MCA CVA 10) Uncontrolled HTN 11) Acute on CKD 12) Extensive back skin peeling ? burn from gastric secretions. Doubt allergic reaction 13) Severe anemia; ? from GI bleed Plan: -called surgery and left message re: copious amount of drainage from surgical wound today and new fever ? fistulae -continue zosyn in view of MDR Pseudomonas only sens to zosyn day 5 of 10 -continue fluconazole day 7 of 10 -contact isolation in view of MDR Pseudomonas -discussed with ICU staff Thank you Dr Eldridge for your consultation, will follow up with you. Pauline Carias MD Infectious Diseases Specialist [facility] ([facility] M [phone] O [phone] Subjective Date of service: 10/25/16 Principal diagnosis: Acute resp failure on MVS; S/P Acute CVA; Acute Encephalopathy; JUANITA Interval history: Remains febrile tmax 100.8, somnolent open eyes spontaneously, not following commands, on the vent via trach. Microbiology: Blood cultures: 09/13 neg 09/23 Silvia albicans 09/25 Silvia 09/29 neg 10/07 NGTD Urine cultures: 09/10 neg 09/13 neg 8/ 10-100K mixed species 10/07 pending Respiratory cultures: 09/07 neg 09/13 neg 09/23 neg Wound cultures: 10/17 abd wall wound purulence + Pseudomonas MDR Stool cultures: Current Antimicrobials: fluconazole 10/19 zosyn 10/21 Previous Antimicrobials: Zosyn 10/07 Vancomycin PO 10/01 Metronidazole 09/25 Micafungin 09/27-10/13 Meropenem 10/10 Vanco 10/17 Objective - Exam Narrative Exam: General appearance: alert, non verbal, on the vent via trach no following commands Eyes: anicteric sclera, moist conjunctivae; PERRLA HENT: Atraumatic; oropharynx limited; Normal external ears. +NGT with greenish secretion Neck: +trach in place; supple, no thyromegaly or lymphadenopathy Lungs: coarse BS bilateral CV: tachycardic Abdomen: Soft, non-tender, +drain with purulent drainage, + diarrhea via rectal tube leaking. +old PEG site no drainage. Right sided Surgical site packed soaked with purulence Extremities: +peripheral edema no extremity lymphadenopathy Skin: Julian sub mammary ulcers, extensive skin peeling on back Psych: somnolent . Neuro: somnolent non verbal on the vent. Lines: left arm PICC placed on 10/03 - Constitutional Vitals: Vital Signs Temp Pulse Resp BP Pulse Ox 100.7 F H 119 H 27 H 157/90 98 10/25/16 08:00 10/25/16 10:00 10/25/16 10:00 10/25/16 10:00 10/25/16 10:00 Temperature -Last 24 Hours Temperature 100.7 F Temperature 101.5 F Temperature 100.8 F Temperature 100.4 F Temperature 99.5 F Temperature 100.6 F Temperature 99.5 F Temperature 99.5 F Temperature 99.9 F Temperature 99.6 F Temperature 100.1 F Temperature 100.3 F Temperature 99.1 F Temperature 100.3 F Temperature 100 F Temperature 99.5 F - Labs CBC & Chem 7: 10/25/16 04:00 10/25/16 04:00 Labs: Abnormal lab results 10/24/16 10/24/16 10/24/16 Range/Units 11:39 17:52 20:00 WBC (4.5-11.0) K/mm3 RBC (3.65-5.03) M/mm3 Hgb 9.4 L D (10.1-14.3) gm/dl Hct 27.5 L D (30.3-42.9) % RDW (13.2-15.2) % [place] % (Auto) (0.0-7.3) % [place] # (0.0-0.8) K/mm3 Seg Neutrophils % (40.0-70.0) % Seg Neutrophils # (1.8-7.7) K/mm3 Sodium (137-145) mmol/L Chloride (98-107) mmol/L BUN (7-17) mg/dL Creatinine (0.7-1.2) mg/dL Glucose (65-100) mg/dL POC Glucose 106 H 158 H (70-105) Calcium (8.4-10.2) mg/dL Phosphorus (2.5-4.5) mg/dL Crossmatch 10/24/16 10/24/16 10/25/16 Range/Units 22:27 Unknown 04:00 WBC (4.5-11.0) K/mm3 RBC (3.65-5.03) M/mm3 Hgb (10.1-14.3) gm/dl Hct (30.3-42.9) % RDW (13.2-15.2) % [place] % (Auto) (0.0-7.3) % [place] # (0.0-0.8) K/mm3 Seg Neutrophils % (40.0-70.0) % Seg Neutrophils # (1.8-7.7) K/mm3 Sodium 132 L (137-145) mmol/L Chloride 94.7 L (98-107) mmol/L BUN 51 H (7-17) mg/dL Creatinine 1.6 H (0.7-1.2) mg/dL Glucose 130 H (65-100) mg/dL POC Glucose 125 H (70-105) Calcium 8.3 L (8.4-10.2) mg/dL Phosphorus (2.5-4.5) mg/dL Crossmatch See Detail 10/25/16 10/25/16 10/25/16 Range/Units 04:00 04:00 04:32 WBC 14.2 H (4.5-11.0) K/mm3 RBC 2.98 L (3.65-5.03) M/mm3 Hgb 9.0 L (10.1-14.3) gm/dl Hct 26.2 L (30.3-42.9) % RDW 16.6 H (13.2-15.2) % [place] % (Auto) 10.7 H (0.0-7.3) % [place] # 1.5 H (0.0-0.8) K/mm3 Seg Neutrophils % 73.6 H (40.0-70.0) % Seg Neutrophils # 10.5 H (1.8-7.7) K/mm3 Sodium (137-145) mmol/L Chloride (98-107) mmol/L BUN (7-17) mg/dL Creatinine (0.7-1.2) mg/dL Glucose (65-100) mg/dL POC Glucose 124 H (70-105) Calcium (8.4-10.2) mg/dL Phosphorus 1.60 L D (2.5-4.5) mg/dL Crossmatch
--- NOTE | 2016-10-25 10:56 | Progress Note ---
Subjective Date of service: 10/25/16 Narrative: Overall there is no change in her neurological state, unpurposeful gaze + Trach to vent on 30 % Fio2 Abdomen - wall edema is less with wrinkling of the skin, fair amount of drainage + from the trpcar sites, purulent, non enteric, PEG site - dark browninh, non purulent drainage Imp - peritonitis from leak from dislodged PEG tube, no evidence of gastro or entero cutaneous fistula Plan- disc with Dr Eli , ID - samara to get CT abdomen with NGT contrast this week Prognosis - guarded Objective Vital Signs - 12hr 10/24/16 10/24/16 10/24/16 23:00 23:01 23:06 Temperature 100.8 F H Pulse Rate 130 H 127 H Pulse Rate [ From Monitor] Respiratory 21 Rate Respiratory Rate [ Generalized] Blood Pressure 171/103 169/101 O2 Sat by Pulse 100 100 Oximetry O2 Sat by Pulse Oximetry [ Assessment] 10/24/16 10/24/16 10/25/16 23:08 23:30 00:00 Temperature Pulse Rate 131 H 135 H Pulse Rate [ From Monitor] Respiratory 24 27 H Rate Respiratory Rate [ Generalized] Blood Pressure 169/96 140/98 O2 Sat by Pulse 100 99 Oximetry O2 Sat by Pulse 100 Oximetry [ Assessment] 10/25/16 10/25/16 10/25/16 00:14 00:16 00:31 Temperature Pulse Rate 131 H 135 H 131 H Pulse Rate [ 130 H From Monitor] Respiratory 23 21 31 H Rate Respiratory Rate [ Generalized] Blood Pressure 140/98 140/98 140/92 O2 Sat by Pulse 99 100 99 Oximetry O2 Sat by Pulse Oximetry [ Assessment] 10/25/16 10/25/16 10/25/16 01:00 01:30 01:55 Temperature Pulse Rate 133 H 133 H 120 H Pulse Rate [ From Monitor] Respiratory 36 H 31 H 21 Rate Respiratory Rate [ Generalized] Blood Pressure 151/94 157/92 O2 Sat by Pulse 99 99 100 Oximetry O2 Sat by Pulse Oximetry [ Assessment] 10/25/16 10/25/16 10/25/16 02:00 02:02 02:30 Temperature Pulse Rate 136 H 136 H 120 H Pulse Rate [ From Monitor] Respiratory 25 H 22 Rate Respiratory Rate [ Generalized] Blood Pressure 156/94 147/99 138/90 O2 Sat by Pulse 99 100 Oximetry O2 Sat by Pulse Oximetry [ Assessment] 10/25/16 10/25/16 10/25/16 03:00 03:07 03:30 Temperature Pulse Rate 125 H 128 H 123 H Pulse Rate [ From Monitor] Respiratory 24 24 Rate Respiratory Rate [ Generalized] Blood Pressure 163/94 163/94 138/89 O2 Sat by Pulse 99 96 100 Oximetry O2 Sat by Pulse Oximetry [ Assessment] 10/25/16 10/25/16 10/25/16 04:00 04:30 05:00 Temperature 101.5 F H Pulse Rate 130 H 132 H 136 H Pulse Rate [ 128 H From Monitor] Respiratory 25 H 26 H Rate Respiratory 21 Rate [ Generalized] Blood Pressure 147/87 164/68 164/74 O2 Sat by Pulse 100 100 100 Oximetry O2 Sat by Pulse Oximetry [ Assessment] 10/25/16 10/25/16 10/25/16 05:30 05:45 05:47 Temperature Pulse Rate 134 H 119 H 134 H Pulse Rate [ From Monitor] Respiratory 22 Rate Respiratory Rate [ Generalized] Blood Pressure 164/74 167/100 O2 Sat by Pulse 99 100 Oximetry O2 Sat by Pulse Oximetry [ Assessment] 10/25/16 10/25/16 10/25/16 06:00 06:30 06:51 Temperature Pulse Rate 119 H 124 H 123 H Pulse Rate [ From Monitor] Respiratory 24 28 H Rate Respiratory Rate [ Generalized] Blood Pressure 157/94 165/96 173/96 O2 Sat by Pulse 99 97 Oximetry O2 Sat by Pulse Oximetry [ Assessment] 10/25/16 10/25/16 10/25/16 07:00 07:30 07:50 Temperature Pulse Rate 123 H 127 H Pulse Rate [ From Monitor] Respiratory 28 H 25 H Rate Respiratory Rate [ Generalized] Blood Pressure 173/96 O2 Sat by Pulse 94 96 98 Oximetry O2 Sat by Pulse Oximetry [ Assessment] 10/25/16 10/25/16 10/25/16 08:00 08:31 09:01 Temperature 100.7 F H Pulse Rate 127 H 127 H 125 H Pulse Rate [ From Monitor] Respiratory 26 H 24 23 Rate Respiratory Rate [ Generalized] Blood Pressure 147/80 157/85 154/84 O2 Sat by Pulse 97 99 99 Oximetry O2 Sat by Pulse Oximetry [ Assessment] 10/25/16 10/25/16 10/25/16 09:23 09:30 09:31 Temperature Pulse Rate 127 H 113 H 115 H Pulse Rate [ From Monitor] Respiratory 24 Rate Respiratory Rate [ Generalized] Blood Pressure 145/87 141/87 141/87 O2 Sat by Pulse 97 97 Oximetry O2 Sat by Pulse Oximetry [ Assessment] 10/25/16 10/25/16 10/25/16 09:34 10:00 10:33 Temperature Pulse Rate 113 H 119 H Pulse Rate [ From Monitor] Respiratory 26 H 27 H Rate Respiratory Rate [ Generalized] Blood Pressure 141/87 157/90 O2 Sat by Pulse 95 98 Oximetry O2 Sat by Pulse 98 Oximetry [ Assessment] - Labs 10/25/16 04:00 10/25/16 04:00 Diabetes panel 10/25/16 Range/Units 04:00 Sodium 132 L (137-145) mmol/L Potassium 3.9 (3.6-5.0) mmol/L Chloride 94.7 L (98-107) mmol/L Carbon Dioxide 24 (22-30) mmol/L BUN 51 H (7-17) mg/dL Creatinine 1.6 H (0.7-1.2) mg/dL Glucose 130 H (65-100) mg/dL Calcium 8.3 L (8.4-10.2) mg/dL Calcium panel 10/25/16 10/25/16 Range/Units 04:00 04:00 Calcium 8.3 L (8.4-10.2) mg/dL Phosphorus 1.60 L D (2.5-4.5) mg/dL Pituitary panel 10/25/16 Range/Units 04:00 Sodium 132 L (137-145) mmol/L Potassium 3.9 (3.6-5.0) mmol/L Chloride 94.7 L (98-107) mmol/L Carbon Dioxide 24 (22-30) mmol/L BUN 51 H (7-17) mg/dL Creatinine 1.6 H (0.7-1.2) mg/dL Glucose 130 H (65-100) mg/dL Calcium 8.3 L (8.4-10.2) mg/dL Adrenal panel 10/25/16 Range/Units 04:00 Sodium 132 L (137-145) mmol/L Potassium 3.9 (3.6-5.0) mmol/L Chloride 94.7 L (98-107) mmol/L Carbon Dioxide 24 (22-30) mmol/L BUN 51 H (7-17) mg/dL Creatinine 1.6 H (0.7-1.2) mg/dL Glucose 130 H (65-100) mg/dL Calcium 8.3 L (8.4-10.2) mg/dL
--- NOTE | 2016-10-25 12:49 | Progress Note ---
Assessment and Plan Assessment and plan: --Severe Sepsis with septic shock. Patient with UTI, candidemia and peritonitis due to gastric perforation and dislodged PEG Continue antibiotics per ID --Acute hypoxic respiratory failure, status post tracheostomy, on vent more than 96hrs Pulmonary following --Acute massive CVA with mass effect; continue antiplatelets and statins --Paroxysmal atrial fibrillation with rapid ventricular rate, failed cardioversion Continue current medications, Not a candidate for anticoagulation secondary to anemia thrombocytopenia and massive CVA --Anemia; probably secondary to GI bleeding Patient received multiple units of PRBC in the past, type and cross and transfuse 2 units of PRBC today re-consult GI if needed If patient has significant vaginal bleeding Consult CASTING TECHNICIAN as needed -Toxic metabolic encephalopathy; supportive care --Diabetes mellitus type 2, Insulin/SSI --Severe protein caloric malnutrition, nutrition supplements to proceeding --s/p Thrombocytopenia. Now resolved --DVT prophylaxis, SCDs, no pharmacological agent given anemia , thrombocytopenia, massive stroke --Full code status, very poor prognosis Had a family meetings 10/10/16, 10/14/16 plan of care poor prognosis was discussed per Dr. Means Dispo. Very poor prognosis. Patient needs LTAC placement. History Interval history: No new issues overnight. Hospitalist Physical - Constitutional Vitals: Temp Pulse Resp BP Pulse Ox 99.6 F 124 H 31 H 168/97 96 10/25/16 12:00 10/25/16 11:22 10/25/16 11:22 10/25/16 11:22 10/25/16 11:22 General appearance: Present: no acute distress, obese, other (on vent, non- responsive) - EENT Eyes: Present: PERRL, EOM intact ENT: hearing intact, clear oral mucosa, dentition normal - Neck Neck: Present: supple, normal ROM - Respiratory Respiratory effort: normal Respiratory: bilateral: CTA - Cardiovascular Rhythm: regular Heart Sounds: Present: S1 & S2. Absent: gallop, rub - Extremities Extremities: no ischemia, No edema, Full ROM - Abdominal General gastrointestinal: soft, non-tender, non-distended, normal bowel sounds - Integumentary Integumentary: Present: clear, warm, dry - Neurologic Neurologic: CNII-XII intact, moves all extremities Results - Labs CBC & Chem 7: 10/25/16 04:00 10/25/16 04:00 Labs: Laboratory Last Values WBC 14.2 K/mm3 (4.5-11.0) H 10/25/16 04:00 RBC 2.98 M/mm3 (3.65-5.03) L 10/25/16 04:00 Hgb 9.0 gm/dl (10.1-14.3) L 10/25/16 04:00 Hct 26.2 % (30.3-42.9) L 10/25/16 04:00 MCV 88 fl (79-97) 10/25/16 04:00 MCH 30 pg (28-32) 10/25/16 04:00 MCHC 34 % (30-34) 10/25/16 04:00 RDW 16.6 % (13.2-15.2) H 10/25/16 04:00 Plt Count 324 K/mm3 (140-440) 10/25/16 04:00 Lymph % (Auto) 14.0 % (13.4-35.0) 10/25/16 04:00 Cecil % (Auto) 10.7 % (0.0-7.3) H 10/25/16 04:00 Eos % (Auto) 0.7 % (0.0-4.3) 10/25/16 04:00 Baso % (Auto) 1.0 % (0.0-1.8) 10/25/16 04:00 Lymph # 2.0 K/mm3 (1.2-5.4) 10/25/16 04:00 Cecil # 1.5 K/mm3 (0.0-0.8) H 10/25/16 04:00 Eos # 0.1 K/mm3 (0.0-0.4) 10/25/16 04:00 Baso # 0.1 K/mm3 (0.0-0.1) 10/25/16 04:00 Add Manual Diff Complete 10/10/16 05:00 Total Counted 100 10/10/16 05:00 Seg Neutrophils % 73.6 % (40.0-70.0) H 10/25/16 04:00 Seg Neuts % (Manual) 61.0 % (40.0-70.0) 10/10/16 05:00 Band Neutrophils % 24.0 % 10/10/16 05:00 Lymphocytes % (Manual) 10.0 % (13.4-35.0) L 10/10/16 05:00 Reactive Lymphs % (Man) 0 % 10/10/16 05:00 Monocytes % (Manual) 2.0 % (0.0-7.3) 10/10/16 05:00 Eosinophils % (Manual) 0 % (0.0-4.3) 10/10/16 05:00 Basophils % (Manual) 0 % (0.0-1.8) 10/10/16 05:00 Metamyelocytes % 3.0 % 10/10/16 05:00 Myelocytes % 0 % 10/10/16 05:00 Promyelocytes % 0 % 10/10/16 05:00 Blast Cells % 0 % 10/10/16 05:00 Nucleated RBC % 4.0 % (0.0-0.9) H 10/10/16 05:00 Seg Neutrophils # 10.5 K/mm3 (1.8-7.7) H 10/25/16 04:00 Seg Neutrophils # Man 11.3 K/mm3 (1.8-7.7) H 10/10/16 05:00 Band Neutrophils # 4.4 K/mm3 10/10/16 05:00 Lymphocytes # (Manual) 1.9 K/mm3 (1.2-5.4) 10/10/16 05:00 Abs React Lymphs (Man) 0.0 K/mm3 10/10/16 05:00 Monocytes # (Manual) 0.4 K/mm3 (0.0-0.8) 10/10/16 05:00 Eosinophils # (Manual) 0.0 K/mm3 (0.0-0.4) 10/10/16 05:00 Basophils # (Manual) 0.0 K/mm3 (0.0-0.1) 10/10/16 05:00 Metamyelocytes # 0.6 K/mm3 10/10/16 05:00 Myelocytes # 0.0 K/mm3 10/10/16 05:00 Promyelocytes # 0.0 K/mm3 10/10/16 05:00 Blast Cells # 0.0 K/mm3 10/10/16 05:00 Pathologist Review 09/13/16 04:00 WBC Morphology Not Reportable 10/10/16 05:00 Hypersegmented Neuts Not Reportable 10/10/16 05:00 Hyposegmented Neuts Not Reportable 10/10/16 05:00 Hypogranular Neuts Not Reportable 10/10/16 05:00 Smudge Cells Not Reportable 10/10/16 05:00 Toxic Granulation Not Reportable 10/10/16 05:00 Toxic Vacuolation Not Reportable 10/10/16 05:00 Dohle Bodies Not Reportable 10/10/16 05:00 Pelger-Huet Anomaly Not Reportable 10/10/16 05:00 Jasmina Rods Not Reportable 10/10/16 05:00 Platelet Estimate Consistent w auto 10/10/16 05:00 Clumped Platelets Not Reportable 10/10/16 05:00 Plt Clumps, EDTA Not Reportable 10/10/16 05:00 Large Platelets Not Reportable 10/10/16 05:00 Giant Platelets Not Reportable 10/10/16 05:00 Platelet Satelliting Not Reportable 10/10/16 05:00 Plt Morphology Comment Not Reportable 10/10/16 05:00 RBC Morphology Not Reportable 10/10/16 05:00 Dimorphic RBCs Not Reportable 10/10/16 05:00 Polychromasia Rare 10/10/16 05:00 Hypochromasia 1+ 10/10/16 05:00 Poikilocytosis Not Reportable 10/10/16 05:00 Anisocytosis 1+ 10/10/16 05:00 Microcytosis Not Reportable 10/10/16 05:00 Macrocytosis 1+ 10/10/16 05:00 Spherocytes Not Reportable 10/10/16 05:00 Pappenheimer Bodies Not Reportable 10/10/16 05:00 Sickle Cells Not Reportable 10/10/16 05:00 Target Cells Not Reportable 10/10/16 05:00 Tear Drop Cells Not Reportable 10/10/16 05:00 Ovalocytes Not Reportable 10/10/16 05:00 Stomatocytes Few 10/06/16 03:50 Helmet Cells Not Reportable 10/10/16 05:00 [place] Bodies Not Reportable 10/10/16 05:00 [place] Rings Not Reportable 10/10/16 05:00 Finger Cells Not Reportable 10/10/16 05:00 Bite Cells Not Reportable 10/10/16 05:00 Crenated Cell Not Reportable 10/10/16 05:00 Elliptocytes Not Reportable 10/10/16 05:00 Acanthocytes (Spur) Not Reportable 10/10/16 05:00 Rouleaux Not Reportable 10/10/16 05:00 Hemoglobin C Crystals Not Reportable 10/10/16 05:00 Schistocytes Not Reportable 10/10/16 05:00 Malaria parasites Not Reportable 10/10/16 05:00 ESR > 140.0 mm/Hr (0-20) 09/08/16 11:48 Jun Bodies Not Reportable 10/10/16 05:00 Hem Pathologist Commnt No 10/10/16 05:00 PT 19.0 Sec. (12.2-14.9) H 10/09/16 03:45 INR 1.51 (0.87-1.13) H 10/09/16 03:45 APTT 33.0 Sec. (24.2-36.6) 10/09/16 03:45 Thrombin Time 16.8 Sec. (15.1-19.6) 09/03/16 00:10 Fibrinogen 750 mg/dl (211-480) H 09/08/16 11:48 Lupus Anticoagulant see below 09/12/16 09:59 LA PTT Baseline See scanned report 09/12/16 09:59 dRVVT Confirm Interp Positive (Negative) H 09/12/16 09:59 dRVVT Screen 50:50 See scanned report 09/12/16 09:59 dRVVT Mix Interpret See scanned report 09/12/16 09:59 Protein C Antigen 122 % (70-140) 09/08/16 15:35 Free Protein S 97 % normal (50-147) 09/08/16 15:35 Total Protein S 109 % (70-140) 09/08/16 15:35 Antithrombin III Ag 100 % (80-120) 09/08/16 15:35 Heparin Anti-Xa, Unfract Negative (Negative) 09/29/16 13:35 Factor V Activity 182 % (65-150) H 09/08/16 15:35 POC ABG pH 7.561 (7.35-7.45) H 10/16/16 20:48 POC ABG pCO2 24.4 (35-45) L 10/16/16 20:48 POC ABG pO2 77 (80-105) L 10/16/16 20:48 POC ABG HCO3 21.9 10/16/16 20:48 POC ABG Total CO2 23 10/16/16 20:48 POC ABG O2 Sat 97 10/16/16 20:48 POC ABG Base Excess 0 10/16/16 20:48 FiO2 25 % 10/16/16 20:48 Sodium 132 mmol/L (137-145) L 10/25/16 04:00 Potassium 3.9 mmol/L (3.6-5.0) 10/25/16 04:00 Chloride 94.7 mmol/L (98-107) L 10/25/16 04:00 Carbon Dioxide 24 mmol/L (22-30) 10/25/16 04:00 Anion Gap 17 mmol/L 10/25/16 04:00 BUN 51 mg/dL (7-17) H 10/25/16 04:00 Creatinine 1.6 mg/dL (0.7-1.2) H 10/25/16 04:00 Estimated GFR 42 ml/min 10/25/16 04:00 BUN/Creatinine Ratio 31.87 % 10/25/16 04:00 Glucose 130 mg/dL (65-100) H 10/25/16 04:00 POC Glucose 171 (70-105) H 10/25/16 11:48 Osmolality 351 Mosm/kg 09/16/16 11:47 Lactic Acid 4.50 mmol/L (0.7-2.0) H* 09/28/16 07:25 Calcium 8.3 mg/dL (8.4-10.2) L 10/25/16 04:00 Phosphorus 1.60 mg/dL (2.5-4.5) L D 10/25/16 04:00 Magnesium 1.80 mg/dL (1.7-2.3) 10/25/16 04:00 Total Bilirubin 0.30 mg/dL (0.1-1.2) 10/17/16 04:24 Direct Bilirubin 0.3 mg/dL (0-0.2) H 10/10/16 05:00 Indirect Bilirubin 0.1 mg/dL 10/10/16 05:00 AST 39 units/L (5-40) 10/17/16 04:24 ALT 13 units/L (7-56) 10/17/16 04:24 Alkaline Phosphatase 138 units/L (35-129) H 10/17/16 04:24 Ammonia 27.0 umol/L (25-60) 09/07/16 08:37 Total Creatine Kinase 121 units/L (30-135) 09/29/16 20:12 CK-MB (CK-2) < 1.0 ng/mL (0.0-4.0) 09/29/16 20:12 CK-MB (CK-2) Rel Index 0.8 (0-4) 09/29/16 20:12 Troponin T 0.204 ng/mL (0.00-0.029) H* 09/29/16 20:12 C-Reactive Protein 15.80 mg/dL (0.00-1.30) H 10/11/16 04:15 Total Protein 6.2 g/dL (6.3-8.2) L 10/17/16 04:24 Albumin 1.5 g/dL (3.9-5) L 10/17/16 04:24 Albumin/Globulin Ratio 0.3 % 10/17/16 04:24 Triglycerides 137 mg/dL (2-149) 09/29/16 20:12 Cholesterol 31 mg/dL (50-199) L 09/29/16 20:12 LDL Cholesterol Direct 4 mg/dL (50-130) L 09/29/16 20:12 HDL Cholesterol 3 mg/dL (40-59) L 09/29/16 20:12 Cholesterol/HDL Ratio 10.33 % 09/29/16 20:12 Angiotensin Convert Enz See scanned report 09/08/16 11:48 Renin 0.99 ng/mL/h (0.25-5.82) 10/07/16 10:56 Aldosterone <1 ng/dL () 10/07/16 10:56 Aldosterone/Renin Dir see below 10/07/16 10:56 Serotonin Release Assay See scanned report 09/29/16 13:35 TSH 1.010 mlU/mL (0.270-4.200) 09/07/16 08:37 HCG, Qual Negative (Negative) 09/03/16 00:10 Urine Color [place] (Yellow) 10/07/16 18:30 Urine Turbidity Turbid (Clear) 10/07/16 18:30 Urine pH 7.0 (5.0-7.0) 10/07/16 18:30 Ur Specific [place] 1.012 (1.003-1.030) 10/07/16 18:30 Urine Protein 100 mg/dl mg/dL (Negative) 10/07/16 18:30 Urine Glucose (UA) Neg mg/dL (Negative) 10/07/16 18:30 Urine Ketones Neg mg/dL (Negative) 10/07/16 18:30 Urine Blood Lg (Negative) 10/07/16 18:30 Urine Nitrite Neg (Negative) 10/07/16 18:30 Urine Bilirubin Neg (Negative) 10/07/16 18:30 Urine Urobilinogen < 2.0 mg/dL (<2.0) 10/07/16 18:30 Ur Leukocyte Esterase Lg (Negative) 10/07/16 18:30 Urine WBC (Auto) > 182.0 /HPF (0.0-6.0) H 10/07/16 18:30 Urine RBC (Auto) > 182.0 /HPF (0.0-6.0) 10/07/16 18:30 U Epithel Cells (Auto) 1.0 /HPF (0-13.0) 10/07/16 18:30 Urine Bacteria (Auto) 3+ /HPF (Negative) 10/07/16 18:30 Urine WBC Clumps 2+ /HPF 09/07/16 02:47 Hyaline Casts 4 /LPF 09/07/16 02:47 Urine Mucus Few /HPF 10/07/16 18:30 Urine Yeast (Budding) 3+ /HPF 10/07/16 18:30 Urine Eosinophils None seen (None Seen) 09/07/16 16:00 Urine Total Volume 1350 09/21/16 12:00 Urine Creatinine 54.8 mg/dL (0.1-20.0) H 09/21/16 12:00 Height (in) 67.0 inches 09/21/16 12:00 Weight (lb) 92.0 lbs 09/21/16 12:00 Creatinine Clearance 15 09/21/16 12:00 Urine Sodium 36 mEq/L 09/16/16 19:19 Urine Total Protein 16 mg/dL (5-11.8) H 09/16/16 19:19 Vancomycin Trough 2.3 ug/mL (5.0-20.0) L 09/21/16 13:00 Random Vancomycin 17.0 ug/mL (0-40.0) 10/20/16 06:00 Urine Opiates Screen Presumptive negative 09/03/16 15:11 Urine Methadone Screen Presumptive positive 09/03/16 15:11 Ur Barbiturates Screen Presumptive positive 09/03/16 15:11 Ur Phencyclidine Scrn Presumptive negative 09/03/16 15:11 Ur Amphetamines Screen Presumptive negative 09/03/16 15:11 U Benzodiazepines Scrn Presumptive negative 09/03/16 15:11 Urine Cocaine Screen Presumptive negative 09/03/16 15:11 U Marijuana (THC) Screen Presumptive positive 09/03/16 15:11 Drugs of Abuse Note Disclamer 09/03/16 15:11 Rheumatoid Factor 24 IU/ml (0-13) H 09/08/16 11:48 SAHIL Screen Negative (Negative) 09/07/16 09:20 Proteinase 3 (PR3) Ab <1.0 AI (<1.0) 09/07/16 09:20 Myeloperoxidase Ab <1.0 AI (<1.0) 09/07/16 09:20 Sjogren's Antibody <1.0 AI (<1.0) 09/08/16 15:35 Scl-70 Scleroderma Ab <1.0 AI (<1.0) 09/08/16 15:35 Centromere B Antibody <1.0 AI (<1.0) 09/08/16 12:02 Heparin-induced Plt Ab Negative (Negative) 09/29/16 13:35 UF Heparin High Dose 11 % Release 09/29/16 13:35 SUDHIR UFH Low Dose 0.1 6 % Release 09/29/16 13:35 SUDHIR UFH Low Dose 0.5 8 % Release 09/29/16 13:35 Cardiolipid IgG Ab <14 GPL (<=14) 09/12/16 09:59 Cardiolipid IgA Ab <11 APL (<=11) 09/12/16 09:59 Cardiolipid IgM Ab <12 MPL (<=12) 09/12/16 09:59 Complement C3 148 mg/dL (90-180) 09/07/16 09:20 Complement C4 58 mg/dL (16-47) H 09/07/16 09:20 RPR Nonreactive (Nonreactive) 09/08/16 11:48 Hepatitis A IgM Ab Non-reactive (NonReactive) 09/24/16 14:40 Hep Bs Antigen Non-reactive (Negative) 09/24/16 14:40 Hep B Core IgM Ab Non-reactive (NonReactive) 09/24/16 14:40 Hepatitis C Antibody Non-reactive (NonReactive) 09/24/16 14:40 HIV 1&2 Antibody Rapid Non react (Non React) 09/08/16 11:48 HIV P24 Antigen Non react (Non React) 09/08/16 11:48 Miscellaneous Test Flexitest 1 H 10/20/16 16:00 Blood Type A POSITIVE 10/24/16 Unknown Antibody Screen Negative 10/24/16 Unknown DELORIS Antibody Screen Negative 09/25/16 10:30 Crossmatch See Detail 10/24/16 Unknown
[2016-10-25] MEDS: HumuLIN R SUB-Q SCH ×5 (12:53→23:59)
--- NOTE | 2016-10-25 14:59 | Progress Note ---
Assessment and Plan Patient is 46-year-old woman with a history of hypertension, diabetes mellitus, asthma, hyperlipidemia, chronic kidney disease and anxiety, who was brought in by family because she couldn't get her words out, her face was also twisted, she was admitted for acute CVA and accelerated hypertension, she had a hx of poor adherence with her medications, and uncontrolled htn. Patient's SBP on admission was noted be greater than 260. TPA was started but this it was discontinued after 5 minutes because her blood pressure became uncontrolled. The TPA was not initiated again because the patient was outside the TPA window. - Patient Problems (1) Acute respiratory failure with hypoxia Current Visit: Yes Status: Acute Plan to address problem: Continue with mechanical ventilatory support and daily SBTs as tolerated Lung protective strategies -VAP bundle, HOB >40 - SCDs for VTE prophylaxis - Stress ulcer prophylaxis -Bronchodilators- h/o asthma - TPN, accucheck with glycemic control - ABGs and CXR PRN (2) Acute blood loss anemia Current Visit: Yes Status: Resolved Plan to address problem: Transfuse for Hgh 7g/dl (3) Acute CVA (cerebrovascular accident) Current Visit: Yes Status: Acute Plan to address problem: CTScan -subacute MCA territory infarct Secondary stroke prophylaxis Neuroprotective measures Aspiration precautions (4) Chronic renal insufficiency Current Visit: Yes Status: Acute Qualifiers: Chronic kidney disease stage: C Plan to address problem: UF/HD per renal service Renal following (5) Uncontrolled hypertension Current Visit: Yes Status: Acute Plan to address problem: Monitor closely and adjust anti-hypertensive medications (6) Leukocytosis (leucocytosis) Current Visit: Yes Status: Acute Qualifiers: Leukocytosis type: leukemoid reaction Qualified Code(s): D72.823 - Leukemoid reaction Plan to address problem: Improving. ID following and monitoring (7) Dislodged gastrostomy tube Current Visit: Yes Status: Acute Plan to address problem: With bowel perforation/peritonitis( resolved) Remains NPO except medications and on TPN for nutritional support. (8) Fungemia Current Visit: Yes Status: Resolved Plan to address problem: Anti-fungal therapy per ID service. Subjective Date of service: 10/25/16 Principal diagnosis: Acute resp failure on MVS; S/P Acute CVA; Acute Encephalopathy; JUANITA Interval history: Seen and examined. Vitals, labs, medications, chart reviewed. On mechanical ventilatory support On TPN, with purulent drainage from the HEMA drain. High grade intermittent fevers. Scheduled for abdominal imaging Discussed with RT and RN during interdisciplinary rounds. Question of vaginal bleeding per RN Tolerating SBT- PS 09/24, for 10 hours yesterday, generating tidal volumes of about 475ml Objective Vital Signs - 12hr 10/25/16 10/25/16 10/25/16 03:00 03:07 03:30 Temperature Pulse Rate 125 H 128 H 123 H Pulse Rate [ From Monitor] Respiratory 24 24 Rate Respiratory Rate [ Generalized] Blood Pressure 163/94 163/94 138/89 O2 Sat by Pulse 99 96 100 Oximetry O2 Sat by Pulse Oximetry [ Assessment] 10/25/16 10/25/16 10/25/16 04:00 04:30 05:00 Temperature 101.5 F H Pulse Rate 130 H 132 H 136 H Pulse Rate [ 128 H From Monitor] Respiratory 25 H 26 H Rate Respiratory 21 Rate [ Generalized] Blood Pressure 147/87 164/68 164/74 O2 Sat by Pulse 100 100 100 Oximetry O2 Sat by Pulse Oximetry [ Assessment] 10/25/16 10/25/16 10/25/16 05:30 05:45 05:47 Temperature Pulse Rate 134 H 119 H 134 H Pulse Rate [ From Monitor] Respiratory 22 Rate Respiratory Rate [ Generalized] Blood Pressure 164/74 167/100 O2 Sat by Pulse 99 100 Oximetry O2 Sat by Pulse Oximetry [ Assessment] 10/25/16 10/25/16 10/25/16 06:00 06:30 06:51 Temperature Pulse Rate 119 H 124 H 123 H Pulse Rate [ From Monitor] Respiratory 24 28 H Rate Respiratory Rate [ Generalized] Blood Pressure 157/94 165/96 173/96 O2 Sat by Pulse 99 97 Oximetry O2 Sat by Pulse Oximetry [ Assessment] 10/25/16 10/25/16 10/25/16 07:00 07:30 07:50 Temperature Pulse Rate 123 H 127 H Pulse Rate [ From Monitor] Respiratory 28 H 25 H Rate Respiratory Rate [ Generalized] Blood Pressure 173/96 O2 Sat by Pulse 94 96 98 Oximetry O2 Sat by Pulse Oximetry [ Assessment] 10/25/16 10/25/16 10/25/16 08:00 08:31 09:01 Temperature 100.7 F H Pulse Rate 127 H 127 H 125 H Pulse Rate [ From Monitor] Respiratory 26 H 24 23 Rate Respiratory Rate [ Generalized] Blood Pressure 147/80 157/85 154/84 O2 Sat by Pulse 97 99 99 Oximetry O2 Sat by Pulse Oximetry [ Assessment] 10/25/16 10/25/16 10/25/16 09:23 09:30 09:31 Temperature Pulse Rate 127 H 113 H 115 H Pulse Rate [ From Monitor] Respiratory 24 Rate Respiratory Rate [ Generalized] Blood Pressure 145/87 141/87 141/87 O2 Sat by Pulse 97 97 Oximetry O2 Sat by Pulse Oximetry [ Assessment] 10/25/16 10/25/16 10/25/16 09:34 10:00 10:31 Temperature Pulse Rate 113 H 119 H 122 H Pulse Rate [ From Monitor] Respiratory 26 H 27 H 25 H Rate Respiratory Rate [ Generalized] Blood Pressure 141/87 157/90 159/90 O2 Sat by Pulse 95 98 98 Oximetry O2 Sat by Pulse Oximetry [ Assessment] 10/25/16 10/25/16 10/25/16 10:33 11:01 11:22 Temperature Pulse Rate 121 H 124 H Pulse Rate [ From Monitor] Respiratory 26 H 31 H Rate Respiratory Rate [ Generalized] Blood Pressure 158/95 168/97 O2 Sat by Pulse 99 96 Oximetry O2 Sat by Pulse 98 Oximetry [ Assessment] 10/25/16 10/25/16 10/25/16 11:31 12:00 12:01 Temperature 99.6 F Pulse Rate 118 H 120 H Pulse Rate [ From Monitor] Respiratory 21 25 H Rate Respiratory Rate [ Generalized] Blood Pressure 142/74 127/80 O2 Sat by Pulse 96 97 Oximetry O2 Sat by Pulse Oximetry [ Assessment] 10/25/16 10/25/16 12:31 13:01 Temperature Pulse Rate 121 H 121 H Pulse Rate [ From Monitor] Respiratory 22 22 Rate Respiratory Rate [ Generalized] Blood Pressure 144/93 148/90 O2 Sat by Pulse 98 99 Oximetry O2 Sat by Pulse Oximetry [ Assessment] Constitutional: no acute distress, other (eyes open; not tracking movements) Eyes: non-icteric, other (tracheostomy tube in midline of neck) ENT: oropharynx moist Neck: supple, no lymphadenopathy Effort: mildly labored Ascultation: Bilateral: clear, diminished breath sounds (bases), rales, rhonchi Cardiovascular: regular rate and rhythm Gastrointestinal: hypoactive bowel sounds, soft, non-tender, non-distended, other (hema drain in place) Integumentary: other (erythema to skin of back with some healing areas; no obvious TEN's features) Extremities: no cyanosis, no edema, pulses normal, no ischemia or petechiae Neurologic: pupils equal and round, other (sedated) Psychiatric: other (unable to assess) CBC and BMP: 12/28/16 04:00 12/29/16 05:15 ABG, PT/INR, D-dimer: ABG POC ABG pH 7.561 (7.35-7.45) H 10/16/16 20:48 POC ABG pCO2 24.4 (35-45) L 10/16/16 20:48 POC ABG pO2 77 (80-105) L 10/16/16 20:48 POC ABG HCO3 21.9 10/16/16 20:48 POC ABG Total CO2 23 10/16/16 20:48 POC ABG O2 Sat 97 10/16/16 20:48 PT/INR, D-dimer PT 19.0 Sec. (12.2-14.9) H 10/09/16 03:45 INR 1.51 (0.87-1.13) H 10/09/16 03:45 Abnormal lab findings: Abnormal Labs 09/03/16 09/03/16 09/03/16 12:12 15:07 16:20 WBC RBC Hgb Hct MCV MCH MCHC RDW Plt Count Lymph % (Auto) Anderson % (Auto) Lymph # Anderson # Baso # Seg Neutrophils % Seg Neuts % (Manual) Lymphocytes % (Manual) Monocytes % (Manual) Eosinophils % (Manual) Basophils % (Manual) Nucleated RBC % Seg Neutrophils # Seg Neutrophils # Man Lymphocytes # (Manual) Monocytes # (Manual) Eosinophils # (Manual) PT INR Fibrinogen dRVVT Confirm Interp Factor V Activity POC ABG pH 7.452 H POC ABG pCO2 POC ABG pO2 Sodium Potassium Chloride Carbon Dioxide BUN Creatinine Glucose POC Glucose 178 H Lactic Acid Calcium Phosphorus 2.20 L Magnesium 1.60 L Direct Bilirubin ALT Alkaline Phosphatase Troponin T C-Reactive Protein Total Protein Albumin Triglycerides Cholesterol LDL Cholesterol Direct HDL Cholesterol Urine WBC (Auto) Urine Creatinine Urine Total Protein Vancomycin Trough Rheumatoid Factor Complement C4 Miscellaneous Test Crossmatch 09/03/16 09/03/16 09/03/16 17:57 17:58 23:50 WBC RBC Hgb Hct MCV MCH MCHC RDW Plt Count Lymph % (Auto) Anderson % (Auto) Lymph # Anderson # Baso # Seg Neutrophils % Seg Neuts % (Manual) Lymphocytes % (Manual) Monocytes % (Manual) Eosinophils % (Manual) Basophils % (Manual) Nucleated RBC % Seg Neutrophils # Seg Neutrophils # Man Lymphocytes # (Manual) Monocytes # (Manual) Eosinophils # (Manual) PT INR Fibrinogen dRVVT Confirm Interp Factor V Activity POC ABG pH POC ABG pCO2 POC ABG pO2 Sodium Potassium Chloride Carbon Dioxide BUN Creatinine Glucose POC Glucose 162 H 145 H Lactic Acid Calcium Phosphorus 2.30 L Magnesium Direct Bilirubin ALT Alkaline Phosphatase Troponin T C-Reactive Protein Total Protein Albumin Triglycerides Cholesterol LDL Cholesterol Direct HDL Cholesterol Urine WBC (Auto) Urine Creatinine Urine Total Protein Vancomycin Trough Rheumatoid Factor Complement C4 Miscellaneous Test Crossmatch 09/04/16 09/04/16 09/04/16 03:31 03:31 05:42 WBC RBC Hgb 9.7 L D Hct MCV 72 L MCH 23 L MCHC RDW 17.5 H Plt Count Lymph % (Auto) 11.1 L Anderson % (Auto) Lymph # Anderson # Baso # Seg Neutrophils % 84.3 H Seg Neuts % (Manual) Lymphocytes % (Manual) Monocytes % (Manual) Eosinophils % (Manual) Basophils % (Manual) Nucleated RBC % Seg Neutrophils # 8.9 H Seg Neutrophils # Man Lymphocytes # (Manual) Monocytes # (Manual) Eosinophils # (Manual) PT INR Fibrinogen dRVVT Confirm Interp Factor V Activity POC ABG pH POC ABG pCO2 POC ABG pO2 Sodium 135 L Potassium 2.9 L* Chloride 97.2 L Carbon Dioxide 19 L BUN Creatinine 1.7 H Glucose 170 H POC Glucose 152 H Lactic Acid Calcium Phosphorus Magnesium Direct Bilirubin ALT Alkaline Phosphatase Troponin T C-Reactive Protein Total Protein Albumin Triglycerides 160 H Cholesterol LDL Cholesterol Direct HDL Cholesterol 31 L Urine WBC (Auto) Urine Creatinine Urine Total Protein Vancomycin Trough Rheumatoid Factor Complement C4 Miscellaneous Test Crossmatch 09/04/16 09/04/16 09/04/16 11:34 17:46 23:29 WBC RBC Hgb Hct MCV MCH MCHC RDW Plt Count Lymph % (Auto) Anderson % (Auto) Lymph # Anderson # Baso # Seg Neutrophils % Seg Neuts % (Manual) Lymphocytes % (Manual) Monocytes % (Manual) Eosinophils % (Manual) Basophils % (Manual) Nucleated RBC % Seg Neutrophils # Seg Neutrophils # Man Lymphocytes # (Manual) Monocytes # (Manual) Eosinophils # (Manual) PT INR Fibrinogen dRVVT Confirm Interp Factor V Activity POC ABG pH POC ABG pCO2 POC ABG pO2 Sodium Potassium Chloride Carbon Dioxide BUN Creatinine Glucose POC Glucose 165 H 210 H 139 H Lactic Acid Calcium Phosphorus Magnesium Direct Bilirubin ALT Alkaline Phosphatase Troponin T C-Reactive Protein Total Protein Albumin Triglycerides Cholesterol LDL Cholesterol Direct HDL Cholesterol Urine WBC (Auto) Urine Creatinine Urine Total Protein Vancomycin Trough Rheumatoid Factor Complement C4 Miscellaneous Test Crossmatch 09/05/16 09/05/16 09/05/16 04:05 04:05 05:38 WBC RBC Hgb Hct MCV 76 L D MCH 23 L MCHC RDW 17.8 H Plt Count Lymph % (Auto) Anderson % (Auto) Lymph # Anderson # Baso # Seg Neutrophils % Seg Neuts % (Manual) Lymphocytes % (Manual) Monocytes % (Manual) Eosinophils % (Manual) Basophils % (Manual) Nucleated RBC % Seg Neutrophils # Seg Neutrophils # Man Lymphocytes # (Manual) Monocytes # (Manual) Eosinophils # (Manual) PT INR Fibrinogen dRVVT Confirm Interp Factor V Activity POC ABG pH POC ABG pCO2 POC ABG pO2 Sodium 134 L Potassium Chloride Carbon Dioxide 18 L BUN Creatinine 1.8 H Glucose 192 H POC Glucose 175 H Lactic Acid Calcium Phosphorus Magnesium Direct Bilirubin ALT Alkaline Phosphatase Troponin T C-Reactive Protein Total Protein Albumin Triglycerides Cholesterol LDL Cholesterol Direct HDL Cholesterol Urine WBC (Auto) Urine Creatinine Urine Total Protein Vancomycin Trough Rheumatoid Factor Complement C4 Miscellaneous Test Crossmatch 09/05/16 09/05/16 09/05/16 11:38 17:48 23:22 WBC RBC Hgb Hct MCV MCH MCHC RDW Plt Count Lymph % (Auto) Anderson % (Auto) Lymph # Anderson # Baso # Seg Neutrophils % Seg Neuts % (Manual) Lymphocytes % (Manual) Monocytes % (Manual) Eosinophils % (Manual) Basophils % (Manual) Nucleated RBC % Seg Neutrophils # Seg Neutrophils # Man Lymphocytes # (Manual) Monocytes # (Manual) Eosinophils # (Manual) PT INR Fibrinogen dRVVT Confirm Interp Factor V Activity POC ABG pH POC ABG pCO2 POC ABG pO2 Sodium Potassium Chloride Carbon Dioxide BUN Creatinine Glucose POC Glucose 164 H 186 H 195 H Lactic Acid Calcium Phosphorus Magnesium Direct Bilirubin ALT Alkaline Phosphatase Troponin T C-Reactive Protein Total Protein Albumin Triglycerides Cholesterol LDL Cholesterol Direct HDL Cholesterol Urine WBC (Auto) Urine Creatinine Urine Total Protein Vancomycin Trough Rheumatoid Factor Complement C4 Miscellaneous Test Crossmatch 09/06/16 09/06/16 09/06/16 04:12 05:59 07:32 WBC RBC Hgb Hct MCV MCH MCHC RDW Plt Count Lymph % (Auto) Anderson % (Auto) Lymph # Anderson # Baso # Seg Neutrophils % Seg Neuts % (Manual) Lymphocytes % (Manual) Monocytes % (Manual) Eosinophils % (Manual) Basophils % (Manual) Nucleated RBC % Seg Neutrophils # Seg Neutrophils # Man Lymphocytes # (Manual) Monocytes # (Manual) Eosinophils # (Manual) PT INR Fibrinogen dRVVT Confirm Interp Factor V Activity POC ABG pH 7.514 H POC ABG pCO2 29.1 L POC ABG pO2 72 L Sodium 133 L Potassium 3.4 L Chloride 94.9 L Carbon Dioxide 19 L BUN 30 H Creatinine 2.1 H Glucose 139 H POC Glucose 146 H Lactic Acid Calcium Phosphorus Magnesium Direct Bilirubin ALT Alkaline Phosphatase Troponin T C-Reactive Protein Total Protein Albumin Triglycerides Cholesterol LDL Cholesterol Direct HDL Cholesterol Urine WBC (Auto) Urine Creatinine Urine Total Protein Vancomycin Trough Rheumatoid Factor Complement C4 Miscellaneous Test Crossmatch 09/06/16 09/06/16 09/06/16 11:57 17:58 19:02 WBC RBC Hgb Hct MCV MCH MCHC RDW Plt Count Lymph % (Auto) Anderson % (Auto) Lymph # Anderson # Baso # Seg Neutrophils % Seg Neuts % (Manual) Lymphocytes % (Manual) Monocytes % (Manual) Eosinophils % (Manual) Basophils % (Manual) Nucleated RBC % Seg Neutrophils # Seg Neutrophils # Man Lymphocytes # (Manual) Monocytes # (Manual) Eosinophils # (Manual) PT INR Fibrinogen dRVVT Confirm Interp Factor V Activity POC ABG pH 7.465 H POC ABG pCO2 32.0 L POC ABG pO2 Sodium Potassium Chloride Carbon Dioxide BUN Creatinine Glucose POC Glucose 165 H 160 H Lactic Acid Calcium Phosphorus Magnesium Direct Bilirubin ALT Alkaline Phosphatase Troponin T C-Reactive Protein Total Protein Albumin Triglycerides Cholesterol LDL Cholesterol Direct HDL Cholesterol Urine WBC (Auto) Urine Creatinine Urine Total Protein Vancomycin Trough Rheumatoid Factor Complement C4 Miscellaneous Test Crossmatch 09/06/16 09/07/16 09/07/16 23:45 02:47 02:47 WBC RBC Hgb Hct MCV MCH MCHC RDW Plt Count Lymph % (Auto) Anderson % (Auto) Lymph # Anderson # Baso # Seg Neutrophils % Seg Neuts % (Manual) Lymphocytes % (Manual) Monocytes % (Manual) Eosinophils % (Manual) Basophils % (Manual) Nucleated RBC % Seg Neutrophils # Seg Neutrophils # Man Lymphocytes # (Manual) Monocytes # (Manual) Eosinophils # (Manual) PT INR Fibrinogen dRVVT Confirm Interp Factor V Activity POC ABG pH POC ABG pCO2 POC ABG pO2 Sodium Potassium Chloride Carbon Dioxide BUN Creatinine Glucose POC Glucose 204 H Lactic Acid Calcium Phosphorus Magnesium Direct Bilirubin ALT Alkaline Phosphatase Troponin T C-Reactive Protein Total Protein Albumin Triglycerides Cholesterol LDL Cholesterol Direct HDL Cholesterol Urine WBC (Auto) 68.0 H Urine Creatinine 106.1 H Urine Total Protein Vancomycin Trough Rheumatoid Factor Complement C4 Miscellaneous Test Crossmatch 09/07/16 09/07/16 09/07/16 04:50 06:19 06:39 WBC RBC Hgb Hct MCV MCH MCHC RDW Plt Count Lymph % (Auto) Anderson % (Auto) Lymph # Anderson # Baso # Seg Neutrophils % Seg Neuts % (Manual) Lymphocytes % (Manual) Monocytes % (Manual) Eosinophils % (Manual) Basophils % (Manual) Nucleated RBC % Seg Neutrophils # Seg Neutrophils # Man Lymphocytes # (Manual) Monocytes # (Manual) Eosinophils # (Manual) PT INR Fibrinogen dRVVT Confirm Interp Factor V Activity POC ABG pH 7.457 H POC ABG pCO2 32.1 L POC ABG pO2 76 L Sodium 132 L Potassium Chloride 94.7 L Carbon Dioxide BUN 53 H Creatinine 2.9 H Glucose 151 H POC Glucose 149 H Lactic Acid Calcium Phosphorus Magnesium Direct Bilirubin ALT Alkaline Phosphatase Troponin T C-Reactive Protein Total Protein Albumin Triglycerides Cholesterol LDL Cholesterol Direct HDL Cholesterol Urine WBC (Auto) Urine Creatinine Urine Total Protein Vancomycin Trough Rheumatoid Factor Complement C4 Miscellaneous Test Crossmatch 09/07/16 09/07/16 09/07/16 09:20 11:43 11:43 WBC 19.4 H RBC Hgb 8.3 L Hct 26.4 L D MCV 72 L D MCH 22 L MCHC RDW 17.9 H Plt Count Lymph % (Auto) 8.5 L Anderson % (Auto) Lymph # Anderson # 1.0 H Baso # Seg Neutrophils % 85.8 H Seg Neuts % (Manual) Lymphocytes % (Manual) Monocytes % (Manual) Eosinophils % (Manual) Basophils % (Manual) Nucleated RBC % Seg Neutrophils # 16.6 H Seg Neutrophils # Man Lymphocytes # (Manual) Monocytes # (Manual) Eosinophils # (Manual) PT INR Fibrinogen dRVVT Confirm Interp Factor V Activity POC ABG pH POC ABG pCO2 POC ABG pO2 Sodium 134 L Potassium Chloride 97.2 L Carbon Dioxide 20 L BUN 58 H Creatinine 2.9 H Glucose 147 H POC Glucose Lactic Acid Calcium Phosphorus 2.40 L Magnesium 2.40 H Direct Bilirubin ALT Alkaline Phosphatase Troponin T C-Reactive Protein Total Protein 5.8 L Albumin 2.2 L Triglycerides Cholesterol LDL Cholesterol Direct HDL Cholesterol Urine WBC (Auto) Urine Creatinine Urine Total Protein Vancomycin Trough Rheumatoid Factor Complement C4 58 H Miscellaneous Test Crossmatch 09/07/16 09/07/16 09/07/16 11:50 16:00 17:31 WBC RBC Hgb Hct MCV MCH MCHC RDW Plt Count Lymph % (Auto) Anderson % (Auto) Lymph # Anderson # Baso # Seg Neutrophils % Seg Neuts % (Manual) Lymphocytes % (Manual) Monocytes % (Manual) Eosinophils % (Manual) Basophils % (Manual) Nucleated RBC % Seg Neutrophils # Seg Neutrophils # Man Lymphocytes # (Manual) Monocytes # (Manual) Eosinophils # (Manual) PT INR Fibrinogen dRVVT Confirm Interp Factor V Activity POC ABG pH POC ABG pCO2 POC ABG pO2 158 H Sodium Potassium Chloride Carbon Dioxide BUN Creatinine Glucose POC Glucose 175 H Lactic Acid Calcium Phosphorus Magnesium Direct Bilirubin ALT Alkaline Phosphatase Troponin T C-Reactive Protein Total Protein Albumin Triglycerides Cholesterol LDL Cholesterol Direct HDL Cholesterol Urine WBC (Auto) Urine Creatinine 66.3 H Urine Total Protein Vancomycin Trough Rheumatoid Factor Complement C4 Miscellaneous Test Crossmatch 09/07/16 09/08/16 09/08/16 23:50 05:46 06:18 WBC 17.8 H RBC 3.58 L Hgb 8.1 L Hct 25.5 L MCV 71 L MCH 23 L MCHC RDW 18.4 H Plt Count Lymph % (Auto) Anderson % (Auto) Lymph # Anderson # Baso # Seg Neutrophils % Seg Neuts % (Manual) 92.0 H Lymphocytes % (Manual) 6.0 L Monocytes % (Manual) Eosinophils % (Manual) Basophils % (Manual) Nucleated RBC % Seg Neutrophils # Seg Neutrophils # Man 16.4 H Lymphocytes # (Manual) 1.1 L Monocytes # (Manual) Eosinophils # (Manual) PT INR Fibrinogen dRVVT Confirm Interp Factor V Activity POC ABG pH POC ABG pCO2 34.3 L POC ABG pO2 71 L Sodium Potassium Chloride Carbon Dioxide BUN Creatinine Glucose POC Glucose 216 H Lactic Acid Calcium Phosphorus Magnesium Direct Bilirubin ALT Alkaline Phosphatase Troponin T C-Reactive Protein Total Protein Albumin Triglycerides Cholesterol LDL Cholesterol Direct HDL Cholesterol Urine WBC (Auto) Urine Creatinine Urine Total Protein Vancomycin Trough Rheumatoid Factor Complement C4 Miscellaneous Test Crossmatch 09/08/16 09/08/16 09/08/16 06:18 06:51 10:55 WBC RBC Hgb Hct MCV MCH MCHC RDW Plt Count Lymph % (Auto) Anderson % (Auto) Lymph # Anderson # Baso # Seg Neutrophils % Seg Neuts % (Manual) Lymphocytes % (Manual) Monocytes % (Manual) Eosinophils % (Manual) Basophils % (Manual) Nucleated RBC % Seg Neutrophils # Seg Neutrophils # Man Lymphocytes # (Manual) Monocytes # (Manual) Eosinophils # (Manual) PT INR Fibrinogen dRVVT Confirm Interp Factor V Activity POC ABG pH POC ABG pCO2 POC ABG pO2 Sodium 133 L Potassium Chloride 96.9 L Carbon Dioxide 20 L BUN 63 H Creatinine 2.7 H Glucose 195 H POC Glucose 204 H 169 H Lactic Acid Calcium Phosphorus Magnesium Direct Bilirubin ALT Alkaline Phosphatase Troponin T C-Reactive Protein Total Protein Albumin Triglycerides Cholesterol LDL Cholesterol Direct HDL Cholesterol Urine WBC (Auto) Urine Creatinine Urine Total Protein Vancomycin Trough Rheumatoid Factor Complement C4 Miscellaneous Test Crossmatch 09/08/16 09/08/16 09/08/16 11:48 11:48 11:48 WBC RBC Hgb Hct MCV MCH MCHC RDW Plt Count Lymph % (Auto) Anderson % (Auto) Lymph # Anderson # Baso # Seg Neutrophils % Seg Neuts % (Manual) Lymphocytes % (Manual) Monocytes % (Manual) Eosinophils % (Manual) Basophils % (Manual) Nucleated RBC % Seg Neutrophils # Seg Neutrophils # Man Lymphocytes # (Manual) Monocytes # (Manual) Eosinophils # (Manual) PT INR Fibrinogen 750 H dRVVT Confirm Interp Factor V Activity POC ABG pH POC ABG pCO2 POC ABG pO2 Sodium Potassium Chloride Carbon Dioxide BUN Creatinine Glucose POC Glucose Lactic Acid Calcium Phosphorus Magnesium Direct Bilirubin ALT Alkaline Phosphatase Troponin T C-Reactive Protein 15.70 H Total Protein Albumin Triglycerides Cholesterol LDL Cholesterol Direct HDL Cholesterol Urine WBC (Auto) Urine Creatinine Urine Total Protein Vancomycin Trough Rheumatoid Factor 24 H Complement C4 Miscellaneous Test Crossmatch 09/08/16 09/08/16 09/09/16 15:35 18:25 00:24 WBC RBC Hgb Hct MCV MCH MCHC RDW Plt Count Lymph % (Auto) Anderson % (Auto) Lymph # Anderson # Baso # Seg Neutrophils % Seg Neuts % (Manual) Lymphocytes % (Manual) Monocytes % (Manual) Eosinophils % (Manual) Basophils % (Manual) Nucleated RBC % Seg Neutrophils # Seg Neutrophils # Man Lymphocytes # (Manual) Monocytes # (Manual) Eosinophils # (Manual) PT INR Fibrinogen dRVVT Confirm Interp Factor V Activity 182 H POC ABG pH POC ABG pCO2 POC ABG pO2 Sodium Potassium Chloride Carbon Dioxide BUN Creatinine Glucose POC Glucose 184 H 216 H Lactic Acid Calcium Phosphorus Magnesium Direct Bilirubin ALT Alkaline Phosphatase Troponin T C-Reactive Protein Total Protein Albumin Triglycerides Cholesterol LDL Cholesterol Direct HDL Cholesterol Urine WBC (Auto) Urine Creatinine Urine Total Protein Vancomycin Trough Rheumatoid Factor Complement C4 Miscellaneous Test Crossmatch 09/09/16 09/09/16 09/09/16 03:00 03:00 04:04 WBC 27.9 H RBC Hgb 8.7 L Hct 28.1 L MCV 72 L MCH 22 L MCHC RDW 18.4 H Plt Count 485 H Lymph % (Auto) Anderson % (Auto) Lymph # Anderson # Baso # Seg Neutrophils % Seg Neuts % (Manual) 77.0 H Lymphocytes % (Manual) 9.0 L Monocytes % (Manual) Eosinophils % (Manual) Basophils % (Manual) Nucleated RBC % Seg Neutrophils # Seg Neutrophils # Man 21.5 H Lymphocytes # (Manual) Monocytes # (Manual) 2.0 H Eosinophils # (Manual) PT INR Fibrinogen dRVVT Confirm Interp Factor V Activity POC ABG pH POC ABG pCO2 POC ABG pO2 121 H Sodium 135 L Potassium Chloride 96.3 L Carbon Dioxide 21 L BUN 83 H Creatinine 3.0 H Glucose 135 H POC Glucose Lactic Acid Calcium Phosphorus Magnesium Direct Bilirubin ALT Alkaline Phosphatase Troponin T C-Reactive Protein Total Protein Albumin Triglycerides Cholesterol LDL Cholesterol Direct HDL Cholesterol Urine WBC (Auto) Urine Creatinine Urine Total Protein Vancomycin Trough Rheumatoid Factor Complement C4 Miscellaneous Test Crossmatch 09/09/16 09/09/16 09/09/16 05:41 11:55 14:13 WBC RBC Hgb Hct MCV MCH MCHC RDW Plt Count Lymph % (Auto) Anderson % (Auto) Lymph # Anderson # Baso # Seg Neutrophils % Seg Neuts % (Manual) Lymphocytes % (Manual) Monocytes % (Manual) Eosinophils % (Manual) Basophils % (Manual) Nucleated RBC % Seg Neutrophils # Seg Neutrophils # Man Lymphocytes # (Manual) Monocytes # (Manual) Eosinophils # (Manual) PT INR Fibrinogen dRVVT Confirm Interp Factor V Activity POC ABG pH POC ABG pCO2 POC ABG pO2 Sodium Potassium Chloride Carbon Dioxide BUN Creatinine Glucose POC Glucose 155 H 186 H Lactic Acid Calcium Phosphorus Magnesium Direct Bilirubin ALT Alkaline Phosphatase Troponin T C-Reactive Protein Total Protein Albumin Triglycerides Cholesterol LDL Cholesterol Direct HDL Cholesterol Urine WBC (Auto) 25.0 H Urine Creatinine Urine Total Protein Vancomycin Trough Rheumatoid Factor Complement C4 Miscellaneous Test Crossmatch 09/09/16 09/09/16 09/10/16 17:33 23:13 05:09 WBC RBC Hgb Hct MCV MCH MCHC RDW Plt Count Lymph % (Auto) Anderson % (Auto) Lymph # Anderson # Baso # Seg Neutrophils % Seg Neuts % (Manual) Lymphocytes % (Manual) Monocytes % (Manual) Eosinophils % (Manual) Basophils % (Manual) Nucleated RBC % Seg Neutrophils # Seg Neutrophils # Man Lymphocytes # (Manual) Monocytes # (Manual) Eosinophils # (Manual) PT INR Fibrinogen dRVVT Confirm Interp Factor V Activity POC ABG pH POC ABG pCO2 POC ABG pO2 74 L Sodium Potassium Chloride Carbon Dioxide BUN Creatinine Glucose POC Glucose 211 H 215 H Lactic Acid Calcium Phosphorus Magnesium Direct Bilirubin ALT Alkaline Phosphatase Troponin T C-Reactive Protein Total Protein Albumin Triglycerides Cholesterol LDL Cholesterol Direct HDL Cholesterol Urine WBC (Auto) Urine Creatinine Urine Total Protein Vancomycin Trough Rheumatoid Factor Complement C4 Miscellaneous Test Crossmatch 09/10/16 09/10/16 09/10/16 05:17 05:17 11:31 WBC 15.8 H RBC 3.25 L Hgb 7.3 L Hct 22.9 L MCV 71 L MCH 23 L MCHC RDW 18.4 H Plt Count Lymph % (Auto) Anderson % (Auto) Lymph # Anderson # Baso # Seg Neutrophils % Seg Neuts % (Manual) 91.0 H Lymphocytes % (Manual) 4.0 L Monocytes % (Manual) Eosinophils % (Manual) Basophils % (Manual) Nucleated RBC % Seg Neutrophils # Seg Neutrophils # Man 14.4 H Lymphocytes # (Manual) 0.6 L Monocytes # (Manual) Eosinophils # (Manual) PT INR Fibrinogen dRVVT Confirm Interp Factor V Activity POC ABG pH POC ABG pCO2 POC ABG pO2 Sodium Potassium Chloride Carbon Dioxide 21 L BUN 93 H Creatinine 2.9 H Glucose 146 H POC Glucose 188 H Lactic Acid Calcium 8.1 L Phosphorus Magnesium Direct Bilirubin ALT Alkaline Phosphatase Troponin T C-Reactive Protein Total Protein Albumin Triglycerides Cholesterol LDL Cholesterol Direct HDL Cholesterol Urine WBC (Auto) Urine Creatinine Urine Total Protein Vancomycin Trough Rheumatoid Factor Complement C4 Miscellaneous Test Crossmatch 09/10/16 09/10/16 09/10/16 13:17 17:20 23:32 WBC RBC Hgb Hct MCV MCH MCHC RDW Plt Count Lymph % (Auto) Anderson % (Auto) Lymph # Anderson # Baso # Seg Neutrophils % Seg Neuts % (Manual) Lymphocytes % (Manual) Monocytes % (Manual) Eosinophils % (Manual) Basophils % (Manual) Nucleated RBC % Seg Neutrophils # Seg Neutrophils # Man Lymphocytes # (Manual) Monocytes # (Manual) Eosinophils # (Manual) PT INR Fibrinogen dRVVT Confirm Interp Factor V Activity POC ABG pH POC ABG pCO2 POC ABG pO2 Sodium Potassium Chloride Carbon Dioxide BUN Creatinine Glucose POC Glucose 199 H 186 H Lactic Acid Calcium Phosphorus Magnesium Direct Bilirubin ALT Alkaline Phosphatase Troponin T C-Reactive Protein Total Protein Albumin Triglycerides Cholesterol LDL Cholesterol Direct HDL Cholesterol Urine WBC (Auto) Urine Creatinine Urine Total Protein Vancomycin Trough Rheumatoid Factor Complement C4 Miscellaneous Test Crossmatch See Detail 09/11/16 09/11/16 09/11/16 05:10 05:10 05:17 WBC 28.4 H RBC Hgb 9.2 L Hct 29.3 L D MCV 73 L MCH 23 L MCHC RDW 18.9 H Plt Count 452 H Lymph % (Auto) Anderson % (Auto) Lymph # Anderson # Baso # Seg Neutrophils % Seg Neuts % (Manual) 89.5 H Lymphocytes % (Manual) 2.0 L Monocytes % (Manual) Eosinophils % (Manual) Basophils % (Manual) Nucleated RBC % Seg Neutrophils # Seg Neutrophils # Man 25.4 H Lymphocytes # (Manual) 0.6 L Monocytes # (Manual) 1.3 H Eosinophils # (Manual) PT INR Fibrinogen dRVVT Confirm Interp Factor V Activity POC ABG pH POC ABG pCO2 POC ABG pO2 Sodium 136 L Potassium Chloride Carbon Dioxide 18 L BUN 107 H Creatinine 2.6 H Glucose 187 H POC Glucose 230 H Lactic Acid Calcium 8.3 L Phosphorus Magnesium Direct Bilirubin ALT Alkaline Phosphatase Troponin T C-Reactive Protein Total Protein Albumin Triglycerides Cholesterol LDL Cholesterol Direct HDL Cholesterol Urine WBC (Auto) Urine Creatinine Urine Total Protein Vancomycin Trough Rheumatoid Factor Complement C4 Miscellaneous Test Crossmatch 09/11/16 09/11/16 09/11/16 05:55 12:02 17:32 WBC RBC Hgb Hct MCV MCH MCHC RDW Plt Count Lymph % (Auto) Anderson % (Auto) Lymph # Anderson # Baso # Seg Neutrophils % Seg Neuts % (Manual) Lymphocytes % (Manual) Monocytes % (Manual) Eosinophils % (Manual) Basophils % (Manual) Nucleated RBC % Seg Neutrophils # Seg Neutrophils # Man Lymphocytes # (Manual) Monocytes # (Manual) Eosinophils # (Manual) PT INR Fibrinogen dRVVT Confirm Interp Factor V Activity POC ABG pH POC ABG pCO2 33.8 L POC ABG pO2 Sodium Potassium Chloride Carbon Dioxide BUN Creatinine Glucose POC Glucose 191 H 239 H Lactic Acid Calcium Phosphorus Magnesium Direct Bilirubin ALT Alkaline Phosphatase Troponin T C-Reactive Protein Total Protein Albumin Triglycerides Cholesterol LDL Cholesterol Direct HDL Cholesterol Urine WBC (Auto) Urine Creatinine Urine Total Protein Vancomycin Trough Rheumatoid Factor Complement C4 Miscellaneous Test Crossmatch 09/11/16 09/12/16 09/12/16 23:52 05:09 05:32 WBC RBC Hgb Hct MCV MCH MCHC RDW Plt Count Lymph % (Auto) Anderson % (Auto) Lymph # Anderson # Baso # Seg Neutrophils % Seg Neuts % (Manual) Lymphocytes % (Manual) Monocytes % (Manual) Eosinophils % (Manual) Basophils % (Manual) Nucleated RBC % Seg Neutrophils # Seg Neutrophils # Man Lymphocytes # (Manual) Monocytes # (Manual) Eosinophils # (Manual) PT INR Fibrinogen dRVVT Confirm Interp Factor V Activity POC ABG pH POC ABG pCO2 34.6 L POC ABG pO2 Sodium Potassium Chloride Carbon Dioxide BUN Creatinine Glucose POC Glucose 265 H 184 H Lactic Acid Calcium Phosphorus Magnesium Direct Bilirubin ALT Alkaline Phosphatase Troponin T C-Reactive Protein Total Protein Albumin Triglycerides Cholesterol LDL Cholesterol Direct HDL Cholesterol Urine WBC (Auto) Urine Creatinine Urine Total Protein Vancomycin Trough Rheumatoid Factor Complement C4 Miscellaneous Test Crossmatch 09/12/16 09/12/16 09/12/16 06:45 06:45 07:22 WBC 31.7 H RBC 3.54 L Hgb 8.3 L Hct 25.9 L MCV 73 L MCH 23 L MCHC RDW 18.9 H Plt Count Lymph % (Auto) Anderson % (Auto) Lymph # Anderson # Baso # Seg Neutrophils % Seg Neuts % (Manual) 88.5 H Lymphocytes % (Manual) 4.5 L Monocytes % (Manual) Eosinophils % (Manual) Basophils % (Manual) Nucleated RBC % Seg Neutrophils # Seg Neutrophils # Man 28.1 H Lymphocytes # (Manual) Monocytes # (Manual) 1.0 H Eosinophils # (Manual) PT INR Fibrinogen dRVVT Confirm Interp Factor V Activity POC ABG pH POC ABG pCO2 POC ABG pO2 Sodium Potassium Chloride Carbon Dioxide 20 L BUN 115 H Creatinine 2.7 H Glucose 165 H POC Glucose Lactic Acid Calcium 8.0 L Phosphorus Magnesium Direct Bilirubin ALT Alkaline Phosphatase Troponin T C-Reactive Protein Total Protein Albumin Triglycerides 217 H Cholesterol LDL Cholesterol Direct HDL Cholesterol Urine WBC (Auto) Urine Creatinine Urine Total Protein Vancomycin Trough Rheumatoid Factor Complement C4 Miscellaneous Test Crossmatch 09/12/16 09/12/16 09/12/16 07:22 09:59 12:21 WBC RBC Hgb Hct MCV MCH MCHC RDW Plt Count Lymph % (Auto) Anderson % (Auto) Lymph # Anderson # Baso # Seg Neutrophils % Seg Neuts % (Manual) Lymphocytes % (Manual) Monocytes % (Manual) Eosinophils % (Manual) Basophils % (Manual) Nucleated RBC % Seg Neutrophils # Seg Neutrophils # Man Lymphocytes # (Manual) Monocytes # (Manual) Eosinophils # (Manual) PT INR Fibrinogen dRVVT Confirm Interp Positive H Factor V Activity POC ABG pH POC ABG pCO2 POC ABG pO2 Sodium Potassium Chloride Carbon Dioxide BUN Creatinine Glucose POC Glucose 224 H Lactic Acid Calcium Phosphorus Magnesium Direct Bilirubin ALT Alkaline Phosphatase Troponin T C-Reactive Protein 1.70 H Total Protein Albumin Triglycerides Cholesterol LDL Cholesterol Direct HDL Cholesterol Urine WBC (Auto) Urine Creatinine Urine Total Protein Vancomycin Trough Rheumatoid Factor Complement C4 Miscellaneous Test Crossmatch 09/12/16 09/12/16 09/13/16 16:51 23:28 04:00 WBC 45.0 H* RBC Hgb 9.4 L Hct MCV 75 L MCH 23 L MCHC RDW 19.0 H Plt Count 470 H Lymph % (Auto) Anderson % (Auto) Lymph # Anderson # Baso # Seg Neutrophils % Seg Neuts % (Manual) 89.0 H Lymphocytes % (Manual) 5.0 L Monocytes % (Manual) Eosinophils % (Manual) Basophils % (Manual) Nucleated RBC % Seg Neutrophils # Seg Neutrophils # Man 40.1 H Lymphocytes # (Manual) Monocytes # (Manual) Eosinophils # (Manual) PT INR Fibrinogen dRVVT Confirm Interp Factor V Activity POC ABG pH POC ABG pCO2 POC ABG pO2 Sodium Potassium Chloride Carbon Dioxide BUN Creatinine Glucose POC Glucose 169 H 150 H Lactic Acid Calcium Phosphorus Magnesium Direct Bilirubin ALT Alkaline Phosphatase Troponin T C-Reactive Protein Total Protein Albumin Triglycerides Cholesterol LDL Cholesterol Direct HDL Cholesterol Urine WBC (Auto) Urine Creatinine Urine Total Protein Vancomycin Trough Rheumatoid Factor Complement C4 Miscellaneous Test Crossmatch 09/13/16 09/13/16 09/13/16 04:00 11:26 17:31 WBC RBC Hgb Hct MCV MCH MCHC RDW Plt Count Lymph % (Auto) Anderson % (Auto) Lymph # Anderson # Baso # Seg Neutrophils % Seg Neuts % (Manual) Lymphocytes % (Manual) Monocytes % (Manual) Eosinophils % (Manual) Basophils % (Manual) Nucleated RBC % Seg Neutrophils # Seg Neutrophils # Man Lymphocytes # (Manual) Monocytes # (Manual) Eosinophils # (Manual) PT INR Fibrinogen dRVVT Confirm Interp Factor V Activity POC ABG pH POC ABG pCO2 POC ABG pO2 Sodium Potassium Chloride Carbon Dioxide 20 L BUN 116 H Creatinine 3.0 H Glucose 172 H POC Glucose 140 H 183 H Lactic Acid Calcium Phosphorus Magnesium Direct Bilirubin ALT Alkaline Phosphatase Troponin T C-Reactive Protein Total Protein 6.2 L Albumin 2.9 L Triglycerides Cholesterol LDL Cholesterol Direct HDL Cholesterol Urine WBC (Auto) Urine Creatinine Urine Total Protein Vancomycin Trough Rheumatoid Factor Complement C4 Miscellaneous Test Crossmatch 09/13/16 09/14/16 09/14/16 23:23 04:06 04:07 WBC 29.4 H RBC Hgb 8.9 L Hct 27.3 L MCV 75 L MCH 24 L MCHC RDW 19.1 H Plt Count Lymph % (Auto) Anderson % (Auto) Lymph # Anderson # Baso # Seg Neutrophils % Seg Neuts % (Manual) 84.0 H Lymphocytes % (Manual) 6.0 L Monocytes % (Manual) 9.0 H Eosinophils % (Manual) Basophils % (Manual) Nucleated RBC % Seg Neutrophils # Seg Neutrophils # Man 24.7 H Lymphocytes # (Manual) Monocytes # (Manual) 2.6 H Eosinophils # (Manual) PT INR Fibrinogen dRVVT Confirm Interp Factor V Activity POC ABG pH 7.342 L POC ABG pCO2 POC ABG pO2 116 H Sodium Potassium Chloride Carbon Dioxide BUN Creatinine Glucose POC Glucose 154 H Lactic Acid Calcium Phosphorus Magnesium Direct Bilirubin ALT Alkaline Phosphatase Troponin T C-Reactive Protein Total Protein Albumin Triglycerides Cholesterol LDL Cholesterol Direct HDL Cholesterol Urine WBC (Auto) Urine Creatinine Urine Total Protein Vancomycin Trough Rheumatoid Factor Complement C4 Miscellaneous Test Crossmatch 09/14/16 09/14/16 09/14/16 04:07 05:29 12:19 WBC RBC Hgb Hct MCV MCH MCHC RDW Plt Count Lymph % (Auto) Anderson % (Auto) Lymph # Anderson # Baso # Seg Neutrophils % Seg Neuts % (Manual) Lymphocytes % (Manual) Monocytes % (Manual) Eosinophils % (Manual) Basophils % (Manual) Nucleated RBC % Seg Neutrophils # Seg Neutrophils # Man Lymphocytes # (Manual) Monocytes # (Manual) Eosinophils # (Manual) PT INR Fibrinogen dRVVT Confirm Interp Factor V Activity POC ABG pH POC ABG pCO2 POC ABG pO2 Sodium 136 L Potassium Chloride Carbon Dioxide 18 L BUN 121 H Creatinine 2.8 H Glucose 214 H POC Glucose 239 H 181 H Lactic Acid Calcium Phosphorus Magnesium Direct Bilirubin ALT Alkaline Phosphatase Troponin T C-Reactive Protein Total Protein Albumin Triglycerides Cholesterol LDL Cholesterol Direct HDL Cholesterol Urine WBC (Auto) Urine Creatinine Urine Total Protein Vancomycin Trough Rheumatoid Factor Complement C4 Miscellaneous Test Crossmatch 09/14/16 09/14/16 09/15/16 18:12 23:37 05:00 WBC 26.1 H RBC 3.05 L Hgb 7.2 L Hct 22.9 L MCV 75 L MCH 24 L MCHC RDW 19.0 H Plt Count Lymph % (Auto) Anderson % (Auto) Lymph # Anderson # Baso # Seg Neutrophils % Seg Neuts % (Manual) Lymphocytes % (Manual) Monocytes % (Manual) Eosinophils % (Manual) Basophils % (Manual) Nucleated RBC % Seg Neutrophils # Seg Neutrophils # Man Lymphocytes # (Manual) Monocytes # (Manual) Eosinophils # (Manual) PT INR Fibrinogen dRVVT Confirm Interp Factor V Activity POC ABG pH POC ABG pCO2 POC ABG pO2 Sodium Potassium Chloride Carbon Dioxide BUN Creatinine Glucose POC Glucose 266 H 154 H Lactic Acid Calcium Phosphorus Magnesium Direct Bilirubin ALT Alkaline Phosphatase Troponin T C-Reactive Protein Total Protein Albumin Triglycerides Cholesterol LDL Cholesterol Direct HDL Cholesterol Urine WBC (Auto) Urine Creatinine Urine Total Protein Vancomycin Trough Rheumatoid Factor Complement C4 Miscellaneous Test Crossmatch 09/15/16 09/15/16 09/15/16 05:00 05:17 12:45 WBC RBC Hgb Hct MCV MCH MCHC RDW Plt Count Lymph % (Auto) Anderson % (Auto) Lymph # Anderson # Baso # Seg Neutrophils % Seg Neuts % (Manual) Lymphocytes % (Manual) Monocytes % (Manual) Eosinophils % (Manual) Basophils % (Manual) Nucleated RBC % Seg Neutrophils # Seg Neutrophils # Man Lymphocytes # (Manual) Monocytes # (Manual) Eosinophils # (Manual) PT INR Fibrinogen dRVVT Confirm Interp Factor V Activity POC ABG pH POC ABG pCO2 POC ABG pO2 Sodium Potassium 5.2 H Chloride Carbon Dioxide 18 L BUN 139 H Creatinine 3.7 H Glucose 227 H POC Glucose 226 H 244 H Lactic Acid Calcium 8.3 L Phosphorus Magnesium Direct Bilirubin ALT Alkaline Phosphatase Troponin T C-Reactive Protein Total Protein Albumin Triglycerides Cholesterol LDL Cholesterol Direct HDL Cholesterol Urine WBC (Auto) Urine Creatinine Urine Total Protein Vancomycin Trough Rheumatoid Factor Complement C4 Miscellaneous Test Crossmatch 09/15/16 09/15/16 09/15/16 14:32 17:33 23:35 WBC RBC Hgb Hct MCV MCH MCHC RDW Plt Count Lymph % (Auto) Anderson % (Auto) Lymph # Anderson # Baso # Seg Neutrophils % Seg Neuts % (Manual) Lymphocytes % (Manual) Monocytes % (Manual) Eosinophils % (Manual) Basophils % (Manual) Nucleated RBC % Seg Neutrophils # Seg Neutrophils # Man Lymphocytes # (Manual) Monocytes # (Manual) Eosinophils # (Manual) PT INR Fibrinogen dRVVT Confirm Interp Factor V Activity POC ABG pH POC ABG pCO2 27.7 L POC ABG pO2 120 H Sodium Potassium Chloride Carbon Dioxide BUN Creatinine Glucose POC Glucose 232 H 167 H Lactic Acid Calcium Phosphorus Magnesium Direct Bilirubin ALT Alkaline Phosphatase Troponin T C-Reactive Protein Total Protein Albumin Triglycerides Cholesterol LDL Cholesterol Direct HDL Cholesterol Urine WBC (Auto) Urine Creatinine Urine Total Protein Vancomycin Trough Rheumatoid Factor Complement C4 Miscellaneous Test Crossmatch 09/16/16 09/16/16 09/16/16 03:58 10:27 10:27 WBC 19.0 H RBC 2.77 L Hgb 6.5 L Hct 20.9 L MCV 76 L MCH 23 L MCHC RDW 19.3 H Plt Count Lymph % (Auto) 11.0 L Anderson % (Auto) Lymph # Anderson # 1.1 H Baso # Seg Neutrophils % 82.5 H Seg Neuts % (Manual) Lymphocytes % (Manual) Monocytes % (Manual) Eosinophils % (Manual) Basophils % (Manual) Nucleated RBC % Seg Neutrophils # 15.7 H Seg Neutrophils # Man Lymphocytes # (Manual) Monocytes # (Manual) Eosinophils # (Manual) PT INR Fibrinogen dRVVT Confirm Interp Factor V Activity POC ABG pH POC ABG pCO2 POC ABG pO2 Sodium Potassium Chloride 109.3 H Carbon Dioxide 18 L BUN 139 H Creatinine 4.1 H Glucose 144 H POC Glucose 146 H Lactic Acid Calcium 8.1 L Phosphorus Magnesium Direct Bilirubin ALT Alkaline Phosphatase Troponin T C-Reactive Protein Total Protein Albumin Triglycerides Cholesterol LDL Cholesterol Direct HDL Cholesterol Urine WBC (Auto) Urine Creatinine Urine Total Protein Vancomycin Trough Rheumatoid Factor Complement C4 Miscellaneous Test Crossmatch 09/16/16 09/16/16 09/16/16 12:04 12:10 13:55 WBC RBC Hgb Hct MCV MCH MCHC RDW Plt Count Lymph % (Auto) Anderson % (Auto) Lymph # Anderson # Baso # Seg Neutrophils % Seg Neuts % (Manual) Lymphocytes % (Manual) Monocytes % (Manual) Eosinophils % (Manual) Basophils % (Manual) Nucleated RBC % Seg Neutrophils # Seg Neutrophils # Man Lymphocytes # (Manual) Monocytes # (Manual) Eosinophils # (Manual) PT INR Fibrinogen dRVVT Confirm Interp Factor V Activity POC ABG pH POC ABG pCO2 32.9 L POC ABG pO2 Sodium Potassium Chloride Carbon Dioxide BUN Creatinine Glucose POC Glucose 185 H Lactic Acid Calcium Phosphorus Magnesium Direct Bilirubin ALT Alkaline Phosphatase Troponin T C-Reactive Protein Total Protein Albumin Triglycerides Cholesterol LDL Cholesterol Direct HDL Cholesterol Urine WBC (Auto) Urine Creatinine Urine Total Protein Vancomycin Trough Rheumatoid Factor Complement C4 Miscellaneous Test Crossmatch See Detail 09/16/16 09/16/16 09/16/16 17:55 19:19 23:48 WBC RBC Hgb Hct MCV MCH MCHC RDW Plt Count Lymph % (Auto) Anderson % (Auto) Lymph # Anderson # Baso # Seg Neutrophils % Seg Neuts % (Manual) Lymphocytes % (Manual) Monocytes % (Manual) Eosinophils % (Manual) Basophils % (Manual) Nucleated RBC % Seg Neutrophils # Seg Neutrophils # Man Lymphocytes # (Manual) Monocytes # (Manual) Eosinophils # (Manual) PT INR Fibrinogen dRVVT Confirm Interp Factor V Activity POC ABG pH POC ABG pCO2 POC ABG pO2 Sodium Potassium Chloride Carbon Dioxide BUN Creatinine Glucose POC Glucose 222 H 107 H Lactic Acid Calcium Phosphorus Magnesium Direct Bilirubin ALT Alkaline Phosphatase Troponin T C-Reactive Protein Total Protein Albumin Triglycerides Cholesterol LDL Cholesterol Direct HDL Cholesterol Urine WBC (Auto) Urine Creatinine 47.4 H Urine Total Protein 16 H Vancomycin Trough Rheumatoid Factor Complement C4 Miscellaneous Test Crossmatch 09/17/16 09/17/16 09/17/16 03:45 03:45 04:55 WBC 19.6 H RBC 3.41 L Hgb 8.5 L Hct 26.7 L MCV 78 L MCH 25 L MCHC RDW 19.9 H Plt Count Lymph % (Auto) 9.3 L Anderson % (Auto) Lymph # Anderson # 1.2 H Baso # Seg Neutrophils % 83.9 H Seg Neuts % (Manual) Lymphocytes % (Manual) Monocytes % (Manual) Eosinophils % (Manual) Basophils % (Manual) Nucleated RBC % Seg Neutrophils # 16.4 H Seg Neutrophils # Man Lymphocytes # (Manual) Monocytes # (Manual) Eosinophils # (Manual) PT INR Fibrinogen dRVVT Confirm Interp Factor V Activity POC ABG pH POC ABG pCO2 POC ABG pO2 Sodium 146 H Potassium 5.1 H Chloride 110.9 H Carbon Dioxide 16 L BUN 146 H Creatinine 4.0 H Glucose 108 H POC Glucose 133 H Lactic Acid Calcium Phosphorus Magnesium 3.00 H Direct Bilirubin ALT Alkaline Phosphatase Troponin T C-Reactive Protein Total Protein Albumin Triglycerides Cholesterol LDL Cholesterol Direct HDL Cholesterol Urine WBC (Auto) Urine Creatinine Urine Total Protein Vancomycin Trough Rheumatoid Factor Complement C4 Miscellaneous Test Crossmatch 09/17/16 09/17/16 09/17/16 11:15 17:33 23:47 WBC RBC Hgb Hct MCV MCH MCHC RDW Plt Count Lymph % (Auto) Anderson % (Auto) Lymph # Anderson # Baso # Seg Neutrophils % Seg Neuts % (Manual) Lymphocytes % (Manual) Monocytes % (Manual) Eosinophils % (Manual) Basophils % (Manual) Nucleated RBC % Seg Neutrophils # Seg Neutrophils # Man Lymphocytes # (Manual) Monocytes # (Manual) Eosinophils # (Manual) PT INR Fibrinogen dRVVT Confirm Interp Factor V Activity POC ABG pH POC ABG pCO2 POC ABG pO2 Sodium Potassium Chloride Carbon Dioxide BUN Creatinine Glucose POC Glucose 176 H 246 H 148 H Lactic Acid Calcium Phosphorus Magnesium Direct Bilirubin ALT Alkaline Phosphatase Troponin T C-Reactive Protein Total Protein Albumin Triglycerides Cholesterol LDL Cholesterol Direct HDL Cholesterol Urine WBC (Auto) Urine Creatinine Urine Total Protein Vancomycin Trough Rheumatoid Factor Complement C4 Miscellaneous Test Crossmatch 09/18/16 09/18/16 09/18/16 05:33 08:31 08:31 WBC 18.0 H RBC 3.17 L Hgb 9.0 L Hct 25.7 L MCV MCH MCHC 35 H RDW 20.4 H Plt Count Lymph % (Auto) Anderson % (Auto) Lymph # Anderson # Baso # Seg Neutrophils % Seg Neuts % (Manual) Lymphocytes % (Manual) Monocytes % (Manual) Eosinophils % (Manual) Basophils % (Manual) Nucleated RBC % Seg Neutrophils # Seg Neutrophils # Man Lymphocytes # (Manual) Monocytes # (Manual) Eosinophils # (Manual) PT INR Fibrinogen dRVVT Confirm Interp Factor V Activity POC ABG pH POC ABG pCO2 POC ABG pO2 Sodium Potassium Chloride Carbon Dioxide 15 L BUN 124 H Creatinine 3.8 H Glucose POC Glucose 120 H Lactic Acid Calcium 8.1 L Phosphorus Magnesium Direct Bilirubin ALT Alkaline Phosphatase Troponin T C-Reactive Protein Total Protein Albumin Triglycerides Cholesterol LDL Cholesterol Direct HDL Cholesterol Urine WBC (Auto) Urine Creatinine Urine Total Protein Vancomycin Trough Rheumatoid Factor Complement C4 Miscellaneous Test Crossmatch 09/18/16 09/18/16 09/18/16 12:03 15:34 17:50 WBC RBC Hgb Hct MCV MCH MCHC RDW Plt Count Lymph % (Auto) Anderson % (Auto) Lymph # Anderson # Baso # Seg Neutrophils % Seg Neuts % (Manual) Lymphocytes % (Manual) Monocytes % (Manual) Eosinophils % (Manual) Basophils % (Manual) Nucleated RBC % Seg Neutrophils # Seg Neutrophils # Man Lymphocytes # (Manual) Monocytes # (Manual) Eosinophils # (Manual) PT INR Fibrinogen dRVVT Confirm Interp Factor V Activity POC ABG pH POC ABG pCO2 25.7 L POC ABG pO2 66 L Sodium Potassium Chloride Carbon Dioxide BUN Creatinine Glucose POC Glucose 156 H 220 H Lactic Acid Calcium Phosphorus Magnesium Direct Bilirubin ALT Alkaline Phosphatase Troponin T C-Reactive Protein Total Protein Albumin Triglycerides Cholesterol LDL Cholesterol Direct HDL Cholesterol Urine WBC (Auto) Urine Creatinine Urine Total Protein Vancomycin Trough Rheumatoid Factor Complement C4 Miscellaneous Test Crossmatch 09/19/16 09/19/16 09/19/16 06:21 09:50 09:50 WBC 17.1 H RBC 3.49 L Hgb 9.0 L Hct 28.1 L MCV MCH 26 L MCHC RDW 20.8 H Plt Count Lymph % (Auto) 11.5 L Anderson % (Auto) 7.5 H Lymph # Anderson # 1.3 H Baso # Seg Neutrophils % 79.8 H Seg Neuts % (Manual) Lymphocytes % (Manual) Monocytes % (Manual) Eosinophils % (Manual) Basophils % (Manual) Nucleated RBC % Seg Neutrophils # 13.7 H Seg Neutrophils # Man Lymphocytes # (Manual) Monocytes # (Manual) Eosinophils # (Manual) PT INR Fibrinogen dRVVT Confirm Interp Factor V Activity POC ABG pH POC ABG pCO2 POC ABG pO2 Sodium Potassium Chloride 108.6 H Carbon Dioxide 15 L BUN 125 H Creatinine 4.1 H Glucose 124 H POC Glucose 119 H Lactic Acid Calcium Phosphorus Magnesium Direct Bilirubin ALT Alkaline Phosphatase Troponin T C-Reactive Protein Total Protein Albumin Triglycerides Cholesterol LDL Cholesterol Direct HDL Cholesterol Urine WBC (Auto) Urine Creatinine Urine Total Protein Vancomycin Trough Rheumatoid Factor Complement C4 Miscellaneous Test Crossmatch 09/19/16 09/19/16 09/19/16 11:25 17:53 23:36 WBC RBC Hgb Hct MCV MCH MCHC RDW Plt Count Lymph % (Auto) Anderson % (Auto) Lymph # Anderson # Baso # Seg Neutrophils % Seg Neuts % (Manual) Lymphocytes % (Manual) Monocytes % (Manual) Eosinophils % (Manual) Basophils % (Manual) Nucleated RBC % Seg Neutrophils # Seg Neutrophils # Man Lymphocytes # (Manual) Monocytes # (Manual) Eosinophils # (Manual) PT INR Fibrinogen dRVVT Confirm Interp Factor V Activity POC ABG pH POC ABG pCO2 POC ABG pO2 Sodium Potassium Chloride Carbon Dioxide BUN Creatinine Glucose POC Glucose 160 H 245 H 121 H Lactic Acid Calcium Phosphorus Magnesium Direct Bilirubin ALT Alkaline Phosphatase Troponin T C-Reactive Protein Total Protein Albumin Triglycerides Cholesterol LDL Cholesterol Direct HDL Cholesterol Urine WBC (Auto) Urine Creatinine Urine Total Protein Vancomycin Trough Rheumatoid Factor Complement C4 Miscellaneous Test Crossmatch 09/20/16 09/20/16 09/20/16 04:10 04:10 04:10 WBC 17.0 H RBC 3.21 L Hgb 8.2 L Hct 25.5 L MCV MCH 26 L MCHC RDW 20.9 H Plt Count Lymph % (Auto) Anderson % (Auto) Lymph # Anderson # Baso # Seg Neutrophils % Seg Neuts % (Manual) Lymphocytes % (Manual) Monocytes % (Manual) Eosinophils % (Manual) Basophils % (Manual) Nucleated RBC % Seg Neutrophils # Seg Neutrophils # Man Lymphocytes # (Manual) Monocytes # (Manual) Eosinophils # (Manual) PT INR Fibrinogen dRVVT Confirm Interp Factor V Activity POC ABG pH POC ABG pCO2 POC ABG pO2 Sodium Potassium Chloride 111.0 H Carbon Dioxide 16 L BUN 129 H Creatinine 3.7 H Glucose 115 H POC Glucose Lactic Acid Calcium 8.2 L Phosphorus Magnesium Direct Bilirubin ALT Alkaline Phosphatase Troponin T C-Reactive Protein Total Protein Albumin Triglycerides 243 H Cholesterol LDL Cholesterol Direct HDL Cholesterol Urine WBC (Auto) Urine Creatinine Urine Total Protein Vancomycin Trough Rheumatoid Factor Complement C4 Miscellaneous Test Crossmatch 09/20/16 09/20/16 09/20/16 05:40 11:52 16:50 WBC RBC Hgb Hct MCV MCH MCHC RDW Plt Count Lymph % (Auto) Anderson % (Auto) Lymph # Anderson # Baso # Seg Neutrophils % Seg Neuts % (Manual) Lymphocytes % (Manual) Monocytes % (Manual) Eosinophils % (Manual) Basophils % (Manual) Nucleated RBC % Seg Neutrophils # Seg Neutrophils # Man Lymphocytes # (Manual) Monocytes # (Manual) Eosinophils # (Manual) PT INR Fibrinogen dRVVT Confirm Interp Factor V Activity POC ABG pH POC ABG pCO2 POC ABG pO2 Sodium Potassium Chloride Carbon Dioxide BUN Creatinine Glucose POC Glucose 131 H 183 H 236 H Lactic Acid Calcium Phosphorus Magnesium Direct Bilirubin ALT Alkaline Phosphatase Troponin T C-Reactive Protein Total Protein Albumin Triglycerides Cholesterol LDL Cholesterol Direct HDL Cholesterol Urine WBC (Auto) Urine Creatinine Urine Total Protein Vancomycin Trough Rheumatoid Factor Complement C4 Miscellaneous Test Crossmatch 09/20/16 09/21/16 09/21/16 23:51 03:30 04:44 WBC RBC Hgb Hct MCV MCH MCHC RDW Plt Count Lymph % (Auto) Anderson % (Auto) Lymph # Anderson # Baso # Seg Neutrophils % Seg Neuts % (Manual) Lymphocytes % (Manual) Monocytes % (Manual) Eosinophils % (Manual) Basophils % (Manual) Nucleated RBC % Seg Neutrophils # Seg Neutrophils # Man Lymphocytes # (Manual) Monocytes # (Manual) Eosinophils # (Manual) PT INR Fibrinogen dRVVT Confirm Interp Factor V Activity POC ABG pH POC ABG pCO2 POC ABG pO2 Sodium Potassium Chloride Carbon Dioxide BUN Creatinine Glucose POC Glucose 114 H 141 H Lactic Acid Calcium Phosphorus Magnesium 2.70 H Direct Bilirubin ALT Alkaline Phosphatase Troponin T C-Reactive Protein Total Protein Albumin Triglycerides Cholesterol LDL Cholesterol Direct HDL Cholesterol Urine WBC (Auto) Urine Creatinine Urine Total Protein Vancomycin Trough Rheumatoid Factor Complement C4 Miscellaneous Test Crossmatch 09/21/16 09/21/16 09/21/16 07:45 07:45 10:01 WBC 13.8 H RBC 2.94 L Hgb 7.5 L Hct 23.5 L MCV MCH 26 L MCHC RDW 21.2 H Plt Count Lymph % (Auto) 6.9 L Anderson % (Auto) 9.4 H Lymph # 0.9 L Anderson # 1.3 H Baso # Seg Neutrophils % 83.2 H Seg Neuts % (Manual) Lymphocytes % (Manual) Monocytes % (Manual) Eosinophils % (Manual) Basophils % (Manual) Nucleated RBC % Seg Neutrophils # 11.5 H Seg Neutrophils # Man Lymphocytes # (Manual) Monocytes # (Manual) Eosinophils # (Manual) PT INR Fibrinogen dRVVT Confirm Interp Factor V Activity POC ABG pH 7.308 L POC ABG pCO2 31.9 L POC ABG pO2 148 H Sodium 147 H Potassium Chloride 114.2 H Carbon Dioxide 15 L BUN 120 H Creatinine 3.9 H Glucose 156 H POC Glucose Lactic Acid Calcium 8.2 L Phosphorus Magnesium Direct Bilirubin ALT Alkaline Phosphatase Troponin T C-Reactive Protein Total Protein Albumin Triglycerides Cholesterol LDL Cholesterol Direct HDL Cholesterol Urine WBC (Auto) Urine Creatinine Urine Total Protein Vancomycin Trough Rheumatoid Factor Complement C4 Miscellaneous Test Crossmatch 09/21/16 09/21/16 09/21/16 12:00 12:03 13:00 WBC RBC Hgb Hct MCV MCH MCHC RDW Plt Count Lymph % (Auto) Anderson % (Auto) Lymph # Anderson # Baso # Seg Neutrophils % Seg Neuts % (Manual) Lymphocytes % (Manual) Monocytes % (Manual) Eosinophils % (Manual) Basophils % (Manual) Nucleated RBC % Seg Neutrophils # Seg Neutrophils # Man Lymphocytes # (Manual) Monocytes # (Manual) Eosinophils # (Manual) PT INR Fibrinogen dRVVT Confirm Interp Factor V Activity POC ABG pH POC ABG pCO2 POC ABG pO2 Sodium Potassium Chloride Carbon Dioxide BUN Creatinine Glucose POC Glucose 163 H Lactic Acid Calcium Phosphorus Magnesium Direct Bilirubin ALT Alkaline Phosphatase Troponin T C-Reactive Protein Total Protein Albumin Triglycerides Cholesterol LDL Cholesterol Direct HDL Cholesterol Urine WBC (Auto) Urine Creatinine 54.8 H Urine Total Protein Vancomycin Trough 2.3 L Rheumatoid Factor Complement C4 Miscellaneous Test Crossmatch 08/0209/21/16 09/22/16 16:51 23:17 06:27 WBC RBC Hgb Hct MCV MCH MCHC RDW Plt Count Lymph % (Auto) Anderson % (Auto) Lymph # Anderson # Baso # Seg Neutrophils % Seg Neuts % (Manual) Lymphocytes % (Manual) Monocytes % (Manual) Eosinophils % (Manual) Basophils % (Manual) Nucleated RBC % Seg Neutrophils # Seg Neutrophils # Man Lymphocytes # (Manual) Monocytes # (Manual) Eosinophils # (Manual) PT INR Fibrinogen dRVVT Confirm Interp Factor V Activity POC ABG pH POC ABG pCO2 POC ABG pO2 Sodium Potassium Chloride Carbon Dioxide BUN Creatinine Glucose POC Glucose 206 H 114 H 115 H Lactic Acid Calcium Phosphorus Magnesium Direct Bilirubin ALT Alkaline Phosphatase Troponin T C-Reactive Protein Total Protein Albumin Triglycerides Cholesterol LDL Cholesterol Direct HDL Cholesterol Urine WBC (Auto) Urine Creatinine Urine Total Protein Vancomycin Trough Rheumatoid Factor Complement C4 Miscellaneous Test Crossmatch 09/22/16 09/22/16 09/22/16 07:50 07:50 12:00 WBC 17.8 H RBC 3.04 L Hgb 8.0 L Hct 24.7 L MCV MCH 26 L MCHC RDW 21.6 H Plt Count Lymph % (Auto) Anderson % (Auto) Lymph # Anderson # Baso # Seg Neutrophils % Seg Neuts % (Manual) Lymphocytes % (Manual) Monocytes % (Manual) Eosinophils % (Manual) Basophils % (Manual) Nucleated RBC % Seg Neutrophils # Seg Neutrophils # Man Lymphocytes # (Manual) Monocytes # (Manual) Eosinophils # (Manual) PT INR Fibrinogen dRVVT Confirm Interp Factor V Activity POC ABG pH POC ABG pCO2 POC ABG pO2 Sodium 150 H Potassium Chloride 118.2 H Carbon Dioxide 14 L BUN 111 H Creatinine 3.7 H Glucose 157 H POC Glucose 183 H Lactic Acid Calcium Phosphorus Magnesium Direct Bilirubin ALT Alkaline Phosphatase Troponin T C-Reactive Protein Total Protein Albumin Triglycerides Cholesterol LDL Cholesterol Direct HDL Cholesterol Urine WBC (Auto) Urine Creatinine Urine Total Protein Vancomycin Trough Rheumatoid Factor Complement C4 Miscellaneous Test Crossmatch 09/22/16 09/22/16 09/23/16 17:29 23:10 05:00 WBC 19.2 H RBC 3.13 L Hgb 8.0 L Hct 25.2 L MCV MCH 26 L MCHC RDW 22.1 H Plt Count Lymph % (Auto) Anderson % (Auto) Lymph # Anderson # Baso # Seg Neutrophils % Seg Neuts % (Manual) 92.0 H Lymphocytes % (Manual) 3.0 L Monocytes % (Manual) Eosinophils % (Manual) Basophils % (Manual) Nucleated RBC % Seg Neutrophils # Seg Neutrophils # Man 17.7 H Lymphocytes # (Manual) 0.6 L Monocytes # (Manual) Eosinophils # (Manual) PT INR Fibrinogen dRVVT Confirm Interp Factor V Activity POC ABG pH POC ABG pCO2 POC ABG pO2 Sodium Potassium Chloride Carbon Dioxide BUN Creatinine Glucose POC Glucose 197 H 169 H Lactic Acid Calcium Phosphorus Magnesium Direct Bilirubin ALT Alkaline Phosphatase Troponin T C-Reactive Protein Total Protein Albumin Triglycerides Cholesterol LDL Cholesterol Direct HDL Cholesterol Urine WBC (Auto) Urine Creatinine Urine Total Protein Vancomycin Trough Rheumatoid Factor Complement C4 Miscellaneous Test Crossmatch 09/23/16 09/23/16 09/23/16 05:00 05:00 05:10 WBC RBC Hgb Hct MCV MCH MCHC RDW Plt Count Lymph % (Auto) Anderson % (Auto) Lymph # Anderson # Baso # Seg Neutrophils % Seg Neuts % (Manual) Lymphocytes % (Manual) Monocytes % (Manual) Eosinophils % (Manual) Basophils % (Manual) Nucleated RBC % Seg Neutrophils # Seg Neutrophils # Man Lymphocytes # (Manual) Monocytes # (Manual) Eosinophils # (Manual) PT INR Fibrinogen dRVVT Confirm Interp Factor V Activity POC ABG pH POC ABG pCO2 POC ABG pO2 Sodium 147 H Potassium 3.2 L Chloride 115.7 H Carbon Dioxide 13 L BUN 111 H Creatinine 3.8 H Glucose 194 H POC Glucose 188 H Lactic Acid Calcium 7.3 L D Phosphorus Magnesium Direct Bilirubin ALT Alkaline Phosphatase Troponin T C-Reactive Protein 3.20 H Total Protein Albumin Triglycerides Cholesterol LDL Cholesterol Direct HDL Cholesterol Urine WBC (Auto) Urine Creatinine Urine Total Protein Vancomycin Trough Rheumatoid Factor Complement C4 Miscellaneous Test Crossmatch 09/23/16 09/23/16 09/23/16 11:37 12:29 18:01 WBC RBC Hgb Hct MCV MCH MCHC RDW Plt Count Lymph % (Auto) Anderson % (Auto) Lymph # Anderson # Baso # Seg Neutrophils % Seg Neuts % (Manual) Lymphocytes % (Manual) Monocytes % (Manual) Eosinophils % (Manual) Basophils % (Manual) Nucleated RBC % Seg Neutrophils # Seg Neutrophils # Man Lymphocytes # (Manual) Monocytes # (Manual) Eosinophils # (Manual) PT INR Fibrinogen dRVVT Confirm Interp Factor V Activity POC ABG pH POC ABG pCO2 18.9 L POC ABG pO2 143 H Sodium Potassium Chloride Carbon Dioxide BUN Creatinine Glucose POC Glucose 153 H 108 H Lactic Acid Calcium Phosphorus Magnesium Direct Bilirubin ALT Alkaline Phosphatase Troponin T C-Reactive Protein Total Protein Albumin Triglycerides Cholesterol LDL Cholesterol Direct HDL Cholesterol Urine WBC (Auto) Urine Creatinine Urine Total Protein Vancomycin Trough Rheumatoid Factor Complement C4 Miscellaneous Test Crossmatch 09/23/16 09/23/16 09/24/16 21:19 23:43 05:16 WBC RBC Hgb Hct MCV MCH MCHC RDW Plt Count Lymph % (Auto) Anderson % (Auto) Lymph # Anderson # Baso # Seg Neutrophils % Seg Neuts % (Manual) Lymphocytes % (Manual) Monocytes % (Manual) Eosinophils % (Manual) Basophils % (Manual) Nucleated RBC % Seg Neutrophils # Seg Neutrophils # Man Lymphocytes # (Manual) Monocytes # (Manual) Eosinophils # (Manual) PT INR Fibrinogen dRVVT Confirm Interp Factor V Activity POC ABG pH POC ABG pCO2 17.3 L POC ABG pO2 112 H Sodium Potassium Chloride Carbon Dioxide BUN Creatinine Glucose POC Glucose 143 H 164 H Lactic Acid Calcium Phosphorus Magnesium Direct Bilirubin ALT Alkaline Phosphatase Troponin T C-Reactive Protein Total Protein Albumin Triglycerides Cholesterol LDL Cholesterol Direct HDL Cholesterol Urine WBC (Auto) Urine Creatinine Urine Total Protein Vancomycin Trough Rheumatoid Factor Complement C4 Miscellaneous Test Crossmatch 09/24/16 09/24/16 09/24/16 05:21 11:58 17:06 WBC RBC Hgb Hct MCV MCH MCHC RDW Plt Count Lymph % (Auto) Anderson % (Auto) Lymph # Anderson # Baso # Seg Neutrophils % Seg Neuts % (Manual) Lymphocytes % (Manual) Monocytes % (Manual) Eosinophils % (Manual) Basophils % (Manual) Nucleated RBC % Seg Neutrophils # Seg Neutrophils # Man Lymphocytes # (Manual) Monocytes # (Manual) Eosinophils # (Manual) PT INR Fibrinogen dRVVT Confirm Interp Factor V Activity POC ABG pH POC ABG pCO2 POC ABG pO2 Sodium Potassium Chloride Carbon Dioxide 10 L BUN 103 H Creatinine 4.3 H Glucose 163 H POC Glucose 173 H 167 H Lactic Acid Calcium 6.5 L Phosphorus Magnesium Direct Bilirubin ALT Alkaline Phosphatase Troponin T C-Reactive Protein Total Protein Albumin Triglycerides Cholesterol LDL Cholesterol Direct HDL Cholesterol Urine WBC (Auto) Urine Creatinine Urine Total Protein Vancomycin Trough Rheumatoid Factor Complement C4 Miscellaneous Test Crossmatch 08/07/0609/24/16 09/24/16 20:15 21:02 23:48 WBC RBC Hgb Hct MCV MCH MCHC RDW Plt Count Lymph % (Auto) Anderson % (Auto) Lymph # Anderson # Baso # Seg Neutrophils % Seg Neuts % (Manual) Lymphocytes % (Manual) Monocytes % (Manual) Eosinophils % (Manual) Basophils % (Manual) Nucleated RBC % Seg Neutrophils # Seg Neutrophils # Man Lymphocytes # (Manual) Monocytes # (Manual) Eosinophils # (Manual) PT INR Fibrinogen dRVVT Confirm Interp Factor V Activity POC ABG pH 7.288 L POC ABG pCO2 30.2 L 21.5 L POC ABG pO2 32 L 39 L Sodium Potassium Chloride Carbon Dioxide BUN Creatinine Glucose POC Glucose 109 H Lactic Acid Calcium Phosphorus Magnesium Direct Bilirubin ALT Alkaline Phosphatase Troponin T C-Reactive Protein Total Protein Albumin Triglycerides Cholesterol LDL Cholesterol Direct HDL Cholesterol Urine WBC (Auto) Urine Creatinine Urine Total Protein Vancomycin Trough Rheumatoid Factor Complement C4 Miscellaneous Test Crossmatch 09/25/16 09/25/16 09/25/16 04:20 04:20 04:20 WBC RBC 2.58 L Hgb 7.0 L Hct 21.0 L MCV MCH 27 L MCHC RDW 23.8 H Plt Count Lymph % (Auto) Anderson % (Auto) Lymph # Anderson # Baso # Seg Neutrophils % Seg Neuts % (Manual) Lymphocytes % (Manual) 12.0 L Monocytes % (Manual) Eosinophils % (Manual) 7.0 H Basophils % (Manual) 2.0 H Nucleated RBC % Seg Neutrophils # Seg Neutrophils # Man Lymphocytes # (Manual) 0.9 L Monocytes # (Manual) Eosinophils # (Manual) 0.5 H PT INR Fibrinogen dRVVT Confirm Interp Factor V Activity POC ABG pH POC ABG pCO2 POC ABG pO2 Sodium Potassium Chloride Carbon Dioxide 15 L BUN 72 H Creatinine 3.8 H Glucose POC Glucose Lactic Acid Calcium 6.0 L Phosphorus 4.60 H Magnesium 1.60 L Direct Bilirubin ALT Alkaline Phosphatase Troponin T C-Reactive Protein Total Protein Albumin Triglycerides Cholesterol LDL Cholesterol Direct HDL Cholesterol Urine WBC (Auto) Urine Creatinine Urine Total Protein Vancomycin Trough Rheumatoid Factor Complement C4 Miscellaneous Test Crossmatch 09/25/16 09/25/16 09/25/16 04:57 08:02 10:30 WBC RBC Hgb Hct MCV MCH MCHC RDW Plt Count Lymph % (Auto) Anderson % (Auto) Lymph # Anderson # Baso # Seg Neutrophils % Seg Neuts % (Manual) Lymphocytes % (Manual) Monocytes % (Manual) Eosinophils % (Manual) Basophils % (Manual) Nucleated RBC % Seg Neutrophils # Seg Neutrophils # Man Lymphocytes # (Manual) Monocytes # (Manual) Eosinophils # (Manual) PT INR Fibrinogen dRVVT Confirm Interp Factor V Activity POC ABG pH POC ABG pCO2 24.7 L POC ABG pO2 152 H Sodium Potassium Chloride Carbon Dioxide BUN Creatinine Glucose POC Glucose 113 H Lactic Acid Calcium Phosphorus Magnesium Direct Bilirubin ALT Alkaline Phosphatase Troponin T C-Reactive Protein Total Protein Albumin Triglycerides Cholesterol LDL Cholesterol Direct HDL Cholesterol Urine WBC (Auto) Urine Creatinine Urine Total Protein Vancomycin Trough Rheumatoid Factor Complement C4 Miscellaneous Test Crossmatch See Detail 09/25/16 09/25/16 09/25/16 12:05 17:44 23:47 WBC RBC Hgb Hct MCV MCH MCHC RDW Plt Count Lymph % (Auto) Anderson % (Auto) Lymph # Anderson # Baso # Seg Neutrophils % Seg Neuts % (Manual) Lymphocytes % (Manual) Monocytes % (Manual) Eosinophils % (Manual) Basophils % (Manual) Nucleated RBC % Seg Neutrophils # Seg Neutrophils # Man Lymphocytes # (Manual) Monocytes # (Manual) Eosinophils # (Manual) PT INR Fibrinogen dRVVT Confirm Interp Factor V Activity POC ABG pH POC ABG pCO2 POC ABG pO2 Sodium Potassium Chloride Carbon Dioxide BUN Creatinine Glucose POC Glucose 117 H 119 H 150 H Lactic Acid Calcium Phosphorus Magnesium Direct Bilirubin ALT Alkaline Phosphatase Troponin T C-Reactive Protein Total Protein Albumin Triglycerides Cholesterol LDL Cholesterol Direct HDL Cholesterol Urine WBC (Auto) Urine Creatinine Urine Total Protein Vancomycin Trough Rheumatoid Factor Complement C4 Miscellaneous Test Crossmatch 09/26/16 09/26/16 09/26/16 04:25 04:25 04:25 WBC RBC 2.65 L Hgb 7.4 L Hct 21.6 L MCV MCH MCHC RDW 22.5 H Plt Count Lymph % (Auto) Anderson % (Auto) Lymph # Anderson # Baso # Seg Neutrophils % Seg Neuts % (Manual) Lymphocytes % (Manual) 6.0 L Monocytes % (Manual) Eosinophils % (Manual) 11.0 H Basophils % (Manual) Nucleated RBC % Seg Neutrophils # Seg Neutrophils # Man Lymphocytes # (Manual) 0.4 L Monocytes # (Manual) Eosinophils # (Manual) 0.6 H PT INR Fibrinogen dRVVT Confirm Interp Factor V Activity POC ABG pH POC ABG pCO2 POC ABG pO2 Sodium Potassium Chloride 97.0 L Carbon Dioxide 19 L BUN 43 H Creatinine 2.6 H Glucose 130 H POC Glucose Lactic Acid 4.40 H* Calcium 6.7 L Phosphorus Magnesium Direct Bilirubin ALT Alkaline Phosphatase Troponin T C-Reactive Protein Total Protein Albumin Triglycerides Cholesterol LDL Cholesterol Direct HDL Cholesterol Urine WBC (Auto) Urine Creatinine Urine Total Protein Vancomycin Trough Rheumatoid Factor Complement C4 Miscellaneous Test Crossmatch 09/26/16 09/26/16 09/26/16 05:20 11:44 12:12 WBC RBC Hgb Hct MCV MCH MCHC RDW Plt Count Lymph % (Auto) Anderson % (Auto) Lymph # Anderson # Baso # Seg Neutrophils % Seg Neuts % (Manual) Lymphocytes % (Manual) Monocytes % (Manual) Eosinophils % (Manual) Basophils % (Manual) Nucleated RBC % Seg Neutrophils # Seg Neutrophils # Man Lymphocytes # (Manual) Monocytes # (Manual) Eosinophils # (Manual) PT INR Fibrinogen dRVVT Confirm Interp Factor V Activity POC ABG pH POC ABG pCO2 27.0 L POC ABG pO2 69 L Sodium Potassium Chloride Carbon Dioxide BUN Creatinine Glucose POC Glucose 121 H 128 H Lactic Acid Calcium Phosphorus Magnesium Direct Bilirubin ALT Alkaline Phosphatase Troponin T C-Reactive Protein Total Protein Albumin Triglycerides Cholesterol LDL Cholesterol Direct HDL Cholesterol Urine WBC (Auto) Urine Creatinine Urine Total Protein Vancomycin Trough Rheumatoid Factor Complement C4 Miscellaneous Test Crossmatch 09/26/16 09/26/16 09/27/16 18:31 23:40 08:20 WBC RBC Hgb Hct MCV MCH MCHC RDW Plt Count Lymph % (Auto) Anderson % (Auto) Lymph # Anderson # Baso # Seg Neutrophils % Seg Neuts % (Manual) Lymphocytes % (Manual) Monocytes % (Manual) Eosinophils % (Manual) Basophils % (Manual) Nucleated RBC % Seg Neutrophils # Seg Neutrophils # Man Lymphocytes # (Manual) Monocytes # (Manual) Eosinophils # (Manual) PT INR Fibrinogen dRVVT Confirm Interp Factor V Activity POC ABG pH POC ABG pCO2 POC ABG pO2 Sodium Potassium Chloride Carbon Dioxide BUN Creatinine Glucose POC Glucose 120 H 133 H Lactic Acid 4.10 H* Calcium Phosphorus Magnesium Direct Bilirubin ALT Alkaline Phosphatase Troponin T C-Reactive Protein Total Protein Albumin Triglycerides Cholesterol LDL Cholesterol Direct HDL Cholesterol Urine WBC (Auto) Urine Creatinine Urine Total Protein Vancomycin Trough Rheumatoid Factor Complement C4 Miscellaneous Test Crossmatch 09/27/16 09/27/16 09/27/16 11:23 15:00 18:15 WBC RBC Hgb Hct MCV MCH MCHC RDW Plt Count Lymph % (Auto) Anderson % (Auto) Lymph # Anderson # Baso # Seg Neutrophils % Seg Neuts % (Manual) Lymphocytes % (Manual) Monocytes % (Manual) Eosinophils % (Manual) Basophils % (Manual) Nucleated RBC % Seg Neutrophils # Seg Neutrophils # Man Lymphocytes # (Manual) Monocytes # (Manual) Eosinophils # (Manual) PT INR Fibrinogen dRVVT Confirm Interp Factor V Activity POC ABG pH 7.459 H POC ABG pCO2 27.1 L POC ABG pO2 140 H Sodium Potassium Chloride Carbon Dioxide BUN Creatinine Glucose POC Glucose 114 H 127 H Lactic Acid Calcium Phosphorus Magnesium Direct Bilirubin ALT Alkaline Phosphatase Troponin T C-Reactive Protein Total Protein Albumin Triglycerides Cholesterol LDL Cholesterol Direct HDL Cholesterol Urine WBC (Auto) Urine Creatinine Urine Total Protein Vancomycin Trough Rheumatoid Factor Complement C4 Miscellaneous Test Crossmatch 09/27/16 09/27/16 09/28/16 Unknown Unknown 03:45 WBC RBC 2.49 L Hgb 6.8 L Hct 20.7 L MCV MCH 27 L MCHC RDW 22.1 H Plt Count Lymph % (Auto) Anderson % (Auto) Lymph # Anderson # Baso # Seg Neutrophils % Seg Neuts % (Manual) 32.0 L Lymphocytes % (Manual) 12.0 L Monocytes % (Manual) 11.0 H Eosinophils % (Manual) 10.0 H Basophils % (Manual) Nucleated RBC % Seg Neutrophils # Seg Neutrophils # Man Lymphocytes # (Manual) 1.0 L Monocytes # (Manual) 0.9 H Eosinophils # (Manual) 0.8 H PT INR Fibrinogen dRVVT Confirm Interp Factor V Activity POC ABG pH POC ABG pCO2 POC ABG pO2 Sodium 135 L 135 L Potassium 3.5 L Chloride 93.6 L 94.4 L Carbon Dioxide 17 L 21 L BUN 45 H 28 H Creatinine 3.3 H 2.5 H Glucose 106 H POC Glucose Lactic Acid Calcium 7.3 L 7.1 L Phosphorus Magnesium Direct Bilirubin ALT Alkaline Phosphatase Troponin T C-Reactive Protein Total Protein Albumin Triglycerides Cholesterol LDL Cholesterol Direct HDL Cholesterol Urine WBC (Auto) Urine Creatinine Urine Total Protein Vancomycin Trough Rheumatoid Factor Complement C4 Miscellaneous Test Crossmatch 09/28/16 09/28/16 09/28/16 03:45 07:25 11:58 WBC 13.3 H RBC 3.01 L Hgb 8.4 L Hct 25.0 L MCV MCH MCHC RDW 20.5 H Plt Count 128 L Lymph % (Auto) Anderson % (Auto) Lymph # Anderson # Baso # Seg Neutrophils % Seg Neuts % (Manual) Lymphocytes % (Manual) 7.0 L Monocytes % (Manual) Eosinophils % (Manual) 6.0 H Basophils % (Manual) Nucleated RBC % Seg Neutrophils # Seg Neutrophils # Man Lymphocytes # (Manual) 0.9 L Monocytes # (Manual) Eosinophils # (Manual) 0.8 H PT INR Fibrinogen dRVVT Confirm Interp Factor V Activity POC ABG pH POC ABG pCO2 POC ABG pO2 Sodium Potassium Chloride Carbon Dioxide BUN Creatinine Glucose POC Glucose 121 H Lactic Acid 4.50 H* Calcium Phosphorus Magnesium Direct Bilirubin ALT Alkaline Phosphatase Troponin T C-Reactive Protein Total Protein Albumin Triglycerides Cholesterol LDL Cholesterol Direct HDL Cholesterol Urine WBC (Auto) Urine Creatinine Urine Total Protein Vancomycin Trough Rheumatoid Factor Complement C4 Miscellaneous Test Crossmatch 09/29/16 09/29/16 09/29/16 06:45 06:45 06:45 WBC 14.9 H RBC 2.74 L Hgb 7.6 L Hct 23.2 L MCV MCH MCHC RDW 20.5 H Plt Count 81 L Lymph % (Auto) Anderson % (Auto) Lymph # Anderson # Baso # Seg Neutrophils % Seg Neuts % (Manual) 81.0 H Lymphocytes % (Manual) 4.0 L Monocytes % (Manual) Eosinophils % (Manual) Basophils % (Manual) Nucleated RBC % Seg Neutrophils # Seg Neutrophils # Man 12.1 H Lymphocytes # (Manual) 0.6 L Monocytes # (Manual) Eosinophils # (Manual) PT INR Fibrinogen dRVVT Confirm Interp Factor V Activity POC ABG pH POC ABG pCO2 POC ABG pO2 Sodium 133 L Potassium 3.4 L Chloride 92.5 L Carbon Dioxide 21 L BUN 33 H Creatinine 3.0 H Glucose POC Glucose Lactic Acid Calcium 6.6 L Phosphorus Magnesium 1.40 L Direct Bilirubin 0.9 H ALT Alkaline Phosphatase Troponin T C-Reactive Protein Total Protein 4.3 L Albumin 1.3 L Triglycerides Cholesterol LDL Cholesterol Direct HDL Cholesterol Urine WBC (Auto) Urine Creatinine Urine Total Protein Vancomycin Trough Rheumatoid Factor Complement C4 Miscellaneous Test Crossmatch 09/29/16 09/29/1617 17:52 20:12 00:07 WBC RBC Hgb Hct MCV MCH MCHC RDW Plt Count Lymph % (Auto) Anderson % (Auto) Lymph # Anderson # Baso # Seg Neutrophils % Seg Neuts % (Manual) Lymphocytes % (Manual) Monocytes % (Manual) Eosinophils % (Manual) Basophils % (Manual) Nucleated RBC % Seg Neutrophils # Seg Neutrophils # Man Lymphocytes # (Manual) Monocytes # (Manual) Eosinophils # (Manual) PT INR Fibrinogen dRVVT Confirm Interp Factor V Activity POC ABG pH POC ABG pCO2 POC ABG pO2 Sodium Potassium Chloride Carbon Dioxide BUN Creatinine Glucose POC Glucose 50 L 51 L Lactic Acid Calcium Phosphorus Magnesium Direct Bilirubin ALT Alkaline Phosphatase Troponin T 0.204 H* C-Reactive Protein Total Protein Albumin Triglycerides Cholesterol 31 L LDL Cholesterol Direct 4 L HDL Cholesterol 3 L Urine WBC (Auto) Urine Creatinine Urine Total Protein Vancomycin Trough Rheumatoid Factor Complement C4 Miscellaneous Test Crossmatch 09/30/16 09/30/16 09/30/16 01:30 05:15 06:10 WBC RBC Hgb Hct MCV MCH MCHC RDW Plt Count Lymph % (Auto) Anderson % (Auto) Lymph # Anderson # Baso # Seg Neutrophils % Seg Neuts % (Manual) Lymphocytes % (Manual) Monocytes % (Manual) Eosinophils % (Manual) Basophils % (Manual) Nucleated RBC % Seg Neutrophils # Seg Neutrophils # Man Lymphocytes # (Manual) Monocytes # (Manual) Eosinophils # (Manual) PT INR Fibrinogen dRVVT Confirm Interp Factor V Activity POC ABG pH POC ABG pCO2 POC ABG pO2 Sodium 133 L Potassium 3.2 L Chloride 93.2 L Carbon Dioxide 19 L BUN 36 H Creatinine 3.2 H Glucose 104 H POC Glucose 167 H 146 H Lactic Acid Calcium 6.4 L Phosphorus Magnesium 1.60 L Direct Bilirubin ALT Alkaline Phosphatase Troponin T C-Reactive Protein Total Protein Albumin Triglycerides Cholesterol LDL Cholesterol Direct HDL Cholesterol Urine WBC (Auto) Urine Creatinine Urine Total Protein Vancomycin Trough Rheumatoid Factor Complement C4 Miscellaneous Test Crossmatch 09/30/16 09/30/16 09/30/16 11:26 13:39 18:38 WBC RBC Hgb Hct MCV MCH MCHC RDW Plt Count Lymph % (Auto) [place] % (Auto) Lymph # Anderson # Baso # Seg Neutrophils % Seg Neuts % (Manual) Lymphocytes % (Manual) Monocytes % (Manual) Eosinophils % (Manual) Basophils % (Manual) Nucleated RBC % Seg Neutrophils # Seg Neutrophils # Man Lymphocytes # (Manual) Monocytes # (Manual) Eosinophils # (Manual) PT INR Fibrinogen dRVVT Confirm Interp Factor V Activity POC ABG pH 7.479 H POC ABG pCO2 29.8 L POC ABG pO2 117 H Sodium Potassium Chloride Carbon Dioxide BUN Creatinine Glucose POC Glucose 140 H 122 H Lactic Acid Calcium Phosphorus Magnesium Direct Bilirubin ALT Alkaline Phosphatase Troponin T C-Reactive Protein Total Protein Albumin Triglycerides Cholesterol LDL Cholesterol Direct HDL Cholesterol Urine WBC (Auto) Urine Creatinine Urine Total Protein Vancomycin Trough Rheumatoid Factor Complement C4 Miscellaneous Test Crossmatch 10/01/16 10/01/16 10/01/16 06:00 06:00 12:37 WBC 12.6 H RBC 2.75 L Hgb 7.3 L Hct 23.3 L MCV MCH 27 L MCHC RDW 20.6 H Plt Count 72 L Lymph % (Auto) [place] % (Auto) Lymph # Anderson # Baso # Seg Neutrophils % Seg Neuts % (Manual) 31.0 L Lymphocytes % (Manual) 8.0 L Monocytes % (Manual) Eosinophils % (Manual) Basophils % (Manual) Nucleated RBC % 3.0 H Seg Neutrophils # Seg Neutrophils # Man Lymphocytes # (Manual) 1.0 L Monocytes # (Manual) Eosinophils # (Manual) PT INR Fibrinogen dRVVT Confirm Interp Factor V Activity POC ABG pH POC ABG pCO2 POC ABG pO2 Sodium 127 L Potassium Chloride 86.8 L Carbon Dioxide 20 L BUN 42 H Creatinine 3.5 H Glucose POC Glucose 65 L Lactic Acid Calcium 7.0 L Phosphorus Magnesium Direct Bilirubin ALT Alkaline Phosphatase Troponin T C-Reactive Protein Total Protein Albumin Triglycerides Cholesterol LDL Cholesterol Direct HDL Cholesterol Urine WBC (Auto) Urine Creatinine Urine Total Protein Vancomycin Trough Rheumatoid Factor Complement C4 Miscellaneous Test Crossmatch 10/01/16 10/01/16 10/02/16 17:39 23:32 00:59 WBC RBC Hgb Hct MCV MCH MCHC RDW Plt Count Lymph % (Auto) Anderson % (Auto) Lymph # [place] # Baso # Seg Neutrophils % Seg Neuts % (Manual) Lymphocytes % (Manual) Monocytes % (Manual) Eosinophils % (Manual) Basophils % (Manual) Nucleated RBC % Seg Neutrophils # Seg Neutrophils # Man Lymphocytes # (Manual) Monocytes # (Manual) Eosinophils # (Manual) PT INR Fibrinogen dRVVT Confirm Interp Factor V Activity POC ABG pH POC ABG pCO2 POC ABG pO2 Sodium Potassium Chloride Carbon Dioxide BUN Creatinine Glucose POC Glucose 107 H 52 L 145 H Lactic Acid Calcium Phosphorus Magnesium Direct Bilirubin ALT Alkaline Phosphatase Troponin T C-Reactive Protein Total Protein Albumin Triglycerides Cholesterol LDL Cholesterol Direct HDL Cholesterol Urine WBC (Auto) Urine Creatinine Urine Total Protein Vancomycin Trough Rheumatoid Factor Complement C4 Miscellaneous Test Crossmatch 10/02/16 10/02/16 10/02/16 10:30 10:50 10:50 WBC 14.7 H RBC 2.76 L Hgb 7.4 L Hct 23.6 L MCV MCH 27 L MCHC RDW 20.2 H Plt Count 79 L Lymph % (Auto) Anderson % (Auto) Lymph # Anderson # Baso # Seg Neutrophils % Seg Neuts % (Manual) 86.0 H Lymphocytes % (Manual) 6.0 L Monocytes % (Manual) Eosinophils % (Manual) Basophils % (Manual) Nucleated RBC % Seg Neutrophils # Seg Neutrophils # Man 12.6 H Lymphocytes # (Manual) 0.9 L Monocytes # (Manual) Eosinophils # (Manual) PT INR Fibrinogen dRVVT Confirm Interp Factor V Activity POC ABG pH 7.486 H POC ABG pCO2 30.1 L POC ABG pO2 108 H Sodium 131 L Potassium 3.4 L Chloride 89.9 L Carbon Dioxide BUN 26 H Creatinine 2.6 H Glucose POC Glucose Lactic Acid Calcium 7.0 L Phosphorus Magnesium Direct Bilirubin ALT Alkaline Phosphatase Troponin T C-Reactive Protein Total Protein Albumin Triglycerides Cholesterol LDL Cholesterol Direct HDL Cholesterol Urine WBC (Auto) Urine Creatinine Urine Total Protein Vancomycin Trough Rheumatoid Factor Complement C4 Miscellaneous Test Crossmatch 10/02/16 10/03/16 10/03/16 23:45 00:45 05:10 WBC 12.9 H RBC 2.77 L Hgb 7.6 L Hct 23.7 L MCV MCH 27 L MCHC RDW 19.7 H Plt Count 89 L Lymph % (Auto) Anderson % (Auto) Lymph # [place] # Baso # Seg Neutrophils % Seg Neuts % (Manual) Lymphocytes % (Manual) 8.0 L Monocytes % (Manual) Eosinophils % (Manual) Basophils % (Manual) Nucleated RBC % Seg Neutrophils # 11.9 H Seg Neutrophils # Man Lymphocytes # (Manual) 1.0 L Monocytes # (Manual) Eosinophils # (Manual) PT INR Fibrinogen dRVVT Confirm Interp Factor V Activity POC ABG pH POC ABG pCO2 POC ABG pO2 Sodium Potassium Chloride Carbon Dioxide BUN Creatinine Glucose POC Glucose 55 L 199 H Lactic Acid Calcium Phosphorus Magnesium Direct Bilirubin ALT Alkaline Phosphatase Troponin T C-Reactive Protein Total Protein Albumin Triglycerides Cholesterol LDL Cholesterol Direct HDL Cholesterol Urine WBC (Auto) Urine Creatinine Urine Total Protein Vancomycin Trough Rheumatoid Factor Complement C4 Miscellaneous Test Crossmatch 10/03/16 10/03/16 10/03/16 05:10 12:14 13:18 WBC RBC Hgb Hct MCV MCH MCHC RDW Plt Count Lymph % (Auto) Anderson % (Auto) Lymph # [place] # Baso # Seg Neutrophils % Seg Neuts % (Manual) Lymphocytes % (Manual) Monocytes % (Manual) Eosinophils % (Manual) Basophils % (Manual) Nucleated RBC % Seg Neutrophils # Seg Neutrophils # Man Lymphocytes # (Manual) Monocytes # (Manual) Eosinophils # (Manual) PT INR Fibrinogen dRVVT Confirm Interp Factor V Activity POC ABG pH POC ABG pCO2 POC ABG pO2 Sodium 129 L Potassium 3.3 L Chloride 88.8 L Carbon Dioxide 20 L BUN 29 H Creatinine 2.8 H Glucose POC Glucose 68 L 127 H Lactic Acid Calcium 7.2 L Phosphorus Magnesium Direct Bilirubin ALT Alkaline Phosphatase Troponin T C-Reactive Protein Total Protein Albumin Triglycerides Cholesterol LDL Cholesterol Direct HDL Cholesterol Urine WBC (Auto) Urine Creatinine Urine Total Protein Vancomycin Trough Rheumatoid Factor Complement C4 Miscellaneous Test Crossmatch 10/03/16 10/03/16 10/03/16 14:42 18:21 19:09 WBC RBC Hgb Hct MCV MCH MCHC RDW Plt Count Lymph % (Auto) [place] % (Auto) Lymph # [place] # Baso # Seg Neutrophils % Seg Neuts % (Manual) Lymphocytes % (Manual) Monocytes % (Manual) Eosinophils % (Manual) Basophils % (Manual) Nucleated RBC % Seg Neutrophils # Seg Neutrophils # Man Lymphocytes # (Manual) Monocytes # (Manual) Eosinophils # (Manual) PT INR Fibrinogen dRVVT Confirm Interp Factor V Activity POC ABG pH 7.499 H POC ABG pCO2 28.4 L POC ABG pO2 44 L Sodium Potassium Chloride Carbon Dioxide BUN Creatinine Glucose POC Glucose 64 L 205 H Lactic Acid Calcium Phosphorus Magnesium Direct Bilirubin ALT Alkaline Phosphatase Troponin T C-Reactive Protein Total Protein Albumin Triglycerides Cholesterol LDL Cholesterol Direct HDL Cholesterol Urine WBC (Auto) Urine Creatinine Urine Total Protein Vancomycin Trough Rheumatoid Factor Complement C4 Miscellaneous Test Crossmatch 10/03/16 10/04/16 10/04/16 23:33 04:18 06:30 WBC RBC 2.54 L Hgb 7.1 L Hct 21.7 L MCV MCH MCHC RDW 19.5 H Plt Count 76 L Lymph % (Auto) Anderson % (Auto) Lymph # [place] # Baso # Seg Neutrophils % Seg Neuts % (Manual) 88.0 H Lymphocytes % (Manual) 6.0 L Monocytes % (Manual) Eosinophils % (Manual) Basophils % (Manual) Nucleated RBC % Seg Neutrophils # Seg Neutrophils # Man 8.8 H Lymphocytes # (Manual) 0.6 L Monocytes # (Manual) Eosinophils # (Manual) PT INR Fibrinogen dRVVT Confirm Interp Factor V Activity POC ABG pH 7.461 H POC ABG pCO2 33.6 L POC ABG pO2 211 H Sodium Potassium Chloride Carbon Dioxide BUN Creatinine Glucose POC Glucose 136 H Lactic Acid Calcium Phosphorus Magnesium Direct Bilirubin ALT Alkaline Phosphatase Troponin T C-Reactive Protein Total Protein Albumin Triglycerides Cholesterol LDL Cholesterol Direct HDL Cholesterol Urine WBC (Auto) Urine Creatinine Urine Total Protein Vancomycin Trough Rheumatoid Factor Complement C4 Miscellaneous Test Crossmatch 10/04/16 10/04/16 10/04/16 06:30 11:45 17:54 WBC RBC Hgb Hct MCV MCH MCHC RDW Plt Count Lymph % (Auto) [place] % (Auto) Lymph # [place] # Baso # Seg Neutrophils % Seg Neuts % (Manual) Lymphocytes % (Manual) Monocytes % (Manual) Eosinophils % (Manual) Basophils % (Manual) Nucleated RBC % Seg Neutrophils # Seg Neutrophils # Man Lymphocytes # (Manual) Monocytes # (Manual) Eosinophils # (Manual) PT INR Fibrinogen dRVVT Confirm Interp Factor V Activity POC ABG pH POC ABG pCO2 POC ABG pO2 Sodium 128 L Potassium Chloride 87.4 L Carbon Dioxide 20 L BUN 34 H Creatinine 2.9 H Glucose 127 H POC Glucose 158 H 160 H Lactic Acid Calcium 7.4 L Phosphorus Magnesium Direct Bilirubin ALT Alkaline Phosphatase Troponin T C-Reactive Protein Total Protein Albumin Triglycerides Cholesterol LDL Cholesterol Direct HDL Cholesterol Urine WBC (Auto) Urine Creatinine Urine Total Protein Vancomycin Trough Rheumatoid Factor Complement C4 Miscellaneous Test Crossmatch 10/04/16 10/05/16 10/05/16 23:25 04:30 05:00 WBC RBC 2.64 L Hgb 7.5 L Hct 22.6 L MCV MCH MCHC RDW 19.3 H Plt Count 80 L Lymph % (Auto) Anderson % (Auto) Lymph # [place] # Baso # Seg Neutrophils % Seg Neuts % (Manual) Lymphocytes % (Manual) 12.0 L Monocytes % (Manual) Eosinophils % (Manual) Basophils % (Manual) Nucleated RBC % Seg Neutrophils # Seg Neutrophils # Man Lymphocytes # (Manual) Monocytes # (Manual) Eosinophils # (Manual) PT INR Fibrinogen dRVVT Confirm Interp Factor V Activity POC ABG pH 7.475 H POC ABG pCO2 33.3 L POC ABG pO2 140 H Sodium Potassium Chloride Carbon Dioxide BUN Creatinine Glucose POC Glucose 141 H Lactic Acid Calcium Phosphorus Magnesium Direct Bilirubin ALT Alkaline Phosphatase Troponin T C-Reactive Protein Total Protein Albumin Triglycerides Cholesterol LDL Cholesterol Direct HDL Cholesterol Urine WBC (Auto) Urine Creatinine Urine Total Protein Vancomycin Trough Rheumatoid Factor Complement C4 Miscellaneous Test Crossmatch 10/05/16 10/05/16 10/05/16 05:00 05:09 12:58 WBC RBC Hgb Hct MCV MCH MCHC RDW Plt Count Lymph % (Auto) [place] % (Auto) Lymph # [place] # Baso # Seg Neutrophils % Seg Neuts % (Manual) Lymphocytes % (Manual) Monocytes % (Manual) Eosinophils % (Manual) Basophils % (Manual) Nucleated RBC % Seg Neutrophils # Seg Neutrophils # Man Lymphocytes # (Manual) Monocytes # (Manual) Eosinophils # (Manual) PT INR Fibrinogen dRVVT Confirm Interp Factor V Activity POC ABG pH POC ABG pCO2 POC ABG pO2 Sodium 131 L Potassium Chloride 94.0 L Carbon Dioxide 20 L BUN 22 H Creatinine 2.0 H Glucose 123 H POC Glucose 166 H 179 H Lactic Acid Calcium 7.7 L Phosphorus 2.20 L D Magnesium Direct Bilirubin ALT Alkaline Phosphatase Troponin T C-Reactive Protein Total Protein Albumin Triglycerides Cholesterol LDL Cholesterol Direct HDL Cholesterol Urine WBC (Auto) Urine Creatinine Urine Total Protein Vancomycin Trough Rheumatoid Factor Complement C4 Miscellaneous Test Crossmatch 10/05/16 10/05/16 10/05/16 15:50 18:53 23:12 WBC RBC Hgb Hct MCV MCH MCHC RDW Plt Count Lymph % (Auto) [place] % (Auto) Lymph # [place] # Baso # Seg Neutrophils % Seg Neuts % (Manual) Lymphocytes % (Manual) Monocytes % (Manual) Eosinophils % (Manual) Basophils % (Manual) Nucleated RBC % Seg Neutrophils # Seg Neutrophils # Man Lymphocytes # (Manual) Monocytes # (Manual) Eosinophils # (Manual) PT INR Fibrinogen dRVVT Confirm Interp Factor V Activity POC ABG pH POC ABG pCO2 POC ABG pO2 Sodium Potassium Chloride Carbon Dioxide BUN Creatinine Glucose POC Glucose 150 H 164 H Lactic Acid Calcium Phosphorus Magnesium Direct Bilirubin ALT Alkaline Phosphatase Troponin T C-Reactive Protein Total Protein Albumin Triglycerides Cholesterol LDL Cholesterol Direct HDL Cholesterol Urine WBC (Auto) Urine Creatinine Urine Total Protein Vancomycin Trough Rheumatoid Factor Complement C4 Miscellaneous Test Crossmatch See Detail 10/06/16 10/06/16 10/06/16 03:50 03:50 04:53 WBC RBC 3.00 L Hgb 8.6 L Hct 25.8 L MCV MCH MCHC RDW 17.9 H Plt Count 65 L Lymph % (Auto) Anderson % (Auto) Lymph # [place] # Baso # Seg Neutrophils % Seg Neuts % (Manual) 30.0 L Lymphocytes % (Manual) 5.0 L Monocytes % (Manual) Eosinophils % (Manual) Basophils % (Manual) Nucleated RBC % Seg Neutrophils # Seg Neutrophils # Man Lymphocytes # (Manual) 0.4 L Monocytes # (Manual) Eosinophils # (Manual) PT INR Fibrinogen dRVVT Confirm Interp Factor V Activity POC ABG pH 7.310 L POC ABG pCO2 49.0 H POC ABG pO2 Sodium 133 L Potassium Chloride 95.9 L Carbon Dioxide BUN 26 H Creatinine 2.0 H Glucose 116 H POC Glucose Lactic Acid Calcium 7.8 L Phosphorus Magnesium Direct Bilirubin ALT Alkaline Phosphatase Troponin T C-Reactive Protein Total Protein Albumin Triglycerides Cholesterol LDL Cholesterol Direct HDL Cholesterol Urine WBC (Auto) Urine Creatinine Urine Total Protein Vancomycin Trough Rheumatoid Factor Complement C4 Miscellaneous Test Crossmatch 10/06/16 10/06/16 10/06/16 05:23 11:52 18:34 WBC RBC Hgb Hct MCV MCH MCHC RDW Plt Count Lymph % (Auto) [place] % (Auto) Lymph # [place] # Baso # Seg Neutrophils % Seg Neuts % (Manual) Lymphocytes % (Manual) Monocytes % (Manual) Eosinophils % (Manual) Basophils % (Manual) Nucleated RBC % Seg Neutrophils # Seg Neutrophils # Man Lymphocytes # (Manual) Monocytes # (Manual) Eosinophils # (Manual) PT INR Fibrinogen dRVVT Confirm Interp Factor V Activity POC ABG pH POC ABG pCO2 POC ABG pO2 Sodium Potassium Chloride Carbon Dioxide BUN Creatinine Glucose POC Glucose 126 H 116 H 129 H Lactic Acid Calcium Phosphorus Magnesium Direct Bilirubin ALT Alkaline Phosphatase Troponin T C-Reactive Protein Total Protein Albumin Triglycerides Cholesterol LDL Cholesterol Direct HDL Cholesterol Urine WBC (Auto) Urine Creatinine Urine Total Protein Vancomycin Trough Rheumatoid Factor Complement C4 Miscellaneous Test Crossmatch 10/07/16 10/07/16 10/07/16 03:45 05:00 10:00 WBC 17.0 H RBC 2.68 L Hgb 7.3 L Hct 25.3 L MCV MCH 27 L MCHC 29 L RDW 19.6 H Plt Count 74 L Lymph % (Auto) [place] % (Auto) Lymph # [place] # Baso # Seg Neutrophils % Seg Neuts % (Manual) Lymphocytes % (Manual) 12.0 L Monocytes % (Manual) Eosinophils % (Manual) Basophils % (Manual) Nucleated RBC % 4.0 H Seg Neutrophils # Seg Neutrophils # Man 10.7 H Lymphocytes # (Manual) Monocytes # (Manual) Eosinophils # (Manual) PT INR Fibrinogen dRVVT Confirm Interp Factor V Activity POC ABG pH POC ABG pCO2 POC ABG pO2 Sodium 130 L Potassium 3.2 L Chloride 93.9 L Carbon Dioxide 20 L BUN 44 H Creatinine 2.7 H Glucose 129 H POC Glucose Lactic Acid Calcium 7.4 L Phosphorus Magnesium Direct Bilirubin ALT 6 L Alkaline Phosphatase 195 H Troponin T C-Reactive Protein Total Protein 4.9 L Albumin 1.0 L Triglycerides Cholesterol LDL Cholesterol Direct HDL Cholesterol Urine WBC (Auto) Urine Creatinine Urine Total Protein Vancomycin Trough Rheumatoid Factor Complement C4 Miscellaneous Test Flexitest 1 H Crossmatch 10/07/16 10/07/16 10/07/16 10:00 11:24 18:10 WBC RBC Hgb Hct MCV MCH MCHC RDW Plt Count Lymph % (Auto) [place] % (Auto) Lymph # [place] # Baso # Seg Neutrophils % Seg Neuts % (Manual) Lymphocytes % (Manual) Monocytes % (Manual) Eosinophils % (Manual) Basophils % (Manual) Nucleated RBC % Seg Neutrophils # Seg Neutrophils # Man Lymphocytes # (Manual) Monocytes # (Manual) Eosinophils # (Manual) PT INR Fibrinogen dRVVT Confirm Interp Factor V Activity POC ABG pH POC ABG pCO2 POC ABG pO2 Sodium Potassium Chloride Carbon Dioxide BUN Creatinine Glucose POC Glucose 116 H 130 H Lactic Acid Calcium Phosphorus Magnesium Direct Bilirubin ALT Alkaline Phosphatase Troponin T C-Reactive Protein 19.40 H Total Protein Albumin Triglycerides Cholesterol LDL Cholesterol Direct HDL Cholesterol Urine WBC (Auto) Urine Creatinine Urine Total Protein Vancomycin Trough Rheumatoid Factor Complement C4 Miscellaneous Test Crossmatch 10/07/16 10/08/16 10/08/16 18:30 00:00 04:00 WBC RBC Hgb Hct MCV MCH MCHC RDW Plt Count Lymph % (Auto) [place] % (Auto) Lymph # [place] # Baso # Seg Neutrophils % Seg Neuts % (Manual) Lymphocytes % (Manual) Monocytes % (Manual) Eosinophils % (Manual) Basophils % (Manual) Nucleated RBC % Seg Neutrophils # Seg Neutrophils # Man Lymphocytes # (Manual) Monocytes # (Manual) Eosinophils # (Manual) PT INR Fibrinogen dRVVT Confirm Interp Factor V Activity POC ABG pH POC ABG pCO2 POC ABG pO2 Sodium 132 L Potassium 3.3 L Chloride 93.6 L Carbon Dioxide 17 L BUN 59 H Creatinine 2.7 H Glucose 121 H POC Glucose 122 H Lactic Acid Calcium 7.6 L Phosphorus Magnesium Direct Bilirubin ALT Alkaline Phosphatase Troponin T C-Reactive Protein Total Protein Albumin Triglycerides Cholesterol LDL Cholesterol Direct HDL Cholesterol Urine WBC (Auto) > 182.0 H Urine Creatinine Urine Total Protein Vancomycin Trough Rheumatoid Factor Complement C4 Miscellaneous Test Crossmatch 10/08/16 10/08/16 10/08/16 04:30 05:30 11:51 WBC RBC 5.15 H Hgb 14.4 H D Hct 44.5 H D MCV MCH MCHC RDW 19.5 H Plt Count 56 L Lymph % (Auto) [place] % (Auto) Lymph # [place] # Baso # Seg Neutrophils % Seg Neuts % (Manual) 24.0 L Lymphocytes % (Manual) 8.0 L Monocytes % (Manual) Eosinophils % (Manual) Basophils % (Manual) Nucleated RBC % 9.0 H Seg Neutrophils # Seg Neutrophils # Man Lymphocytes # (Manual) 0.7 L Monocytes # (Manual) Eosinophils # (Manual) PT INR Fibrinogen dRVVT Confirm Interp Factor V Activity POC ABG pH POC ABG pCO2 POC ABG pO2 Sodium Potassium Chloride Carbon Dioxide BUN Creatinine Glucose POC Glucose 125 H 150 H Lactic Acid Calcium Phosphorus Magnesium Direct Bilirubin ALT Alkaline Phosphatase Troponin T C-Reactive Protein Total Protein Albumin Triglycerides Cholesterol LDL Cholesterol Direct HDL Cholesterol Urine WBC (Auto) Urine Creatinine Urine Total Protein Vancomycin Trough Rheumatoid Factor Complement C4 Miscellaneous Test Crossmatch 10/08/16 10/08/16 10/08/16 12:49 17:07 19:30 WBC RBC Hgb 7.1 L D Hct 22.4 L D MCV MCH MCHC RDW Plt Count Lymph % (Auto) [place] % (Auto) Lymph # [place] # Baso # Seg Neutrophils % Seg Neuts % (Manual) Lymphocytes % (Manual) Monocytes % (Manual) Eosinophils % (Manual) Basophils % (Manual) Nucleated RBC % Seg Neutrophils # Seg Neutrophils # Man Lymphocytes # (Manual) Monocytes # (Manual) Eosinophils # (Manual) PT INR Fibrinogen dRVVT Confirm Interp Factor V Activity POC ABG pH POC ABG pCO2 28.2 L POC ABG pO2 111 H Sodium Potassium Chloride Carbon Dioxide BUN Creatinine Glucose POC Glucose 145 H Lactic Acid Calcium Phosphorus Magnesium Direct Bilirubin ALT Alkaline Phosphatase Troponin T C-Reactive Protein Total Protein Albumin Triglycerides Cholesterol LDL Cholesterol Direct HDL Cholesterol Urine WBC (Auto) Urine Creatinine Urine Total Protein Vancomycin Trough Rheumatoid Factor Complement C4 Miscellaneous Test Crossmatch 10/08/16 10/09/16 10/09/16 19:30 03:45 03:45 WBC 12.6 H RBC 2.36 L Hgb 6.7 L Hct 21.1 L MCV MCH MCHC RDW 19.5 H Plt Count 75 L Lymph % (Auto) [place] % (Auto) Lymph # [place] # Baso # Seg Neutrophils % Seg Neuts % (Manual) Lymphocytes % (Manual) Monocytes % (Manual) 10.0 H Eosinophils % (Manual) Basophils % (Manual) Nucleated RBC % 3.0 H Seg Neutrophils # Seg Neutrophils # Man Lymphocytes # (Manual) Monocytes # (Manual) 1.3 H Eosinophils # (Manual) PT 18.0 H INR 1.41 H Fibrinogen dRVVT Confirm Interp Factor V Activity POC ABG pH POC ABG pCO2 POC ABG pO2 Sodium 135 L Potassium Chloride Carbon Dioxide 17 L BUN 81 H Creatinine 3.2 H Glucose 109 H POC Glucose Lactic Acid Calcium 7.4 L Phosphorus 4.60 H D Magnesium Direct Bilirubin ALT Alkaline Phosphatase Troponin T C-Reactive Protein Total Protein Albumin Triglycerides Cholesterol LDL Cholesterol Direct HDL Cholesterol Urine WBC (Auto) Urine Creatinine Urine Total Protein Vancomycin Trough Rheumatoid Factor Complement C4 Miscellaneous Test Crossmatch 10/09/16 10/09/16 10/09/16 03:45 05:14 07:20 WBC RBC Hgb Hct MCV MCH MCHC RDW Plt Count Lymph % (Auto) [place] % (Auto) Lymph # [place] # Baso # Seg Neutrophils % Seg Neuts % (Manual) Lymphocytes % (Manual) Monocytes % (Manual) Eosinophils % (Manual) Basophils % (Manual) Nucleated RBC % Seg Neutrophils # Seg Neutrophils # Man Lymphocytes # (Manual) Monocytes # (Manual) Eosinophils # (Manual) PT 19.0 H INR 1.51 H Fibrinogen dRVVT Confirm Interp Factor V Activity POC ABG pH POC ABG pCO2 POC ABG pO2 Sodium Potassium Chloride Carbon Dioxide BUN Creatinine Glucose POC Glucose 151 H Lactic Acid Calcium Phosphorus Magnesium Direct Bilirubin ALT Alkaline Phosphatase Troponin T C-Reactive Protein Total Protein Albumin Triglycerides Cholesterol LDL Cholesterol Direct HDL Cholesterol Urine WBC (Auto) Urine Creatinine Urine Total Protein Vancomycin Trough Rheumatoid Factor Complement C4 Miscellaneous Test Crossmatch See Detail 10/09/16 10/09/16 10/09/16 11:46 16:20 16:43 WBC RBC Hgb 7.2 L Hct 22.2 L MCV MCH MCHC RDW Plt Count Lymph % (Auto) [place] % (Auto) Lymph # [place] # Baso # Seg Neutrophils % Seg Neuts % (Manual) Lymphocytes % (Manual) Monocytes % (Manual) Eosinophils % (Manual) Basophils % (Manual) Nucleated RBC % Seg Neutrophils # Seg Neutrophils # Man Lymphocytes # (Manual) Monocytes # (Manual) Eosinophils # (Manual) PT INR Fibrinogen dRVVT Confirm Interp Factor V Activity POC ABG pH POC ABG pCO2 POC ABG pO2 Sodium Potassium Chloride Carbon Dioxide BUN Creatinine Glucose POC Glucose 133 H 141 H Lactic Acid Calcium Phosphorus Magnesium Direct Bilirubin ALT Alkaline Phosphatase Troponin T C-Reactive Protein Total Protein Albumin Triglycerides Cholesterol LDL Cholesterol Direct HDL Cholesterol Urine WBC (Auto) Urine Creatinine Urine Total Protein Vancomycin Trough Rheumatoid Factor Complement C4 Miscellaneous Test Crossmatch 10/10/16 10/10/16 10/10/16 05:00 05:00 11:19 WBC 18.5 H RBC 2.19 L Hgb 6.4 L Hct 19.6 L* MCV MCH MCHC RDW 19.3 H Plt Count 93 L Lymph % (Auto) [place] % (Auto) Lymph # [place] # Baso # Seg Neutrophils % Seg Neuts % (Manual) Lymphocytes % (Manual) 10.0 L Monocytes % (Manual) Eosinophils % (Manual) Basophils % (Manual) Nucleated RBC % 4.0 H Seg Neutrophils # Seg Neutrophils # Man 11.3 H Lymphocytes # (Manual) Monocytes # (Manual) Eosinophils # (Manual) PT INR Fibrinogen dRVVT Confirm Interp Factor V Activity POC ABG pH POC ABG pCO2 POC ABG pO2 Sodium Potassium 5.7 H D Chloride Carbon Dioxide 16 L BUN 94 H Creatinine 3.1 H Glucose 131 H POC Glucose 153 H Lactic Acid Calcium 8.2 L Phosphorus 5.10 H Magnesium 2.40 H Direct Bilirubin 0.3 H ALT < 5 L Alkaline Phosphatase 319 H Troponin T C-Reactive Protein Total Protein 5.1 L Albumin 1.0 L Triglycerides Cholesterol LDL Cholesterol Direct HDL Cholesterol Urine WBC (Auto) Urine Creatinine Urine Total Protein Vancomycin Trough Rheumatoid Factor Complement C4 Miscellaneous Test Crossmatch 10/10/16 10/10/16 10/11/16 17:50 23:30 04:15 WBC RBC Hgb Hct MCV MCH MCHC RDW Plt Count Lymph % (Auto) [place] % (Auto) Lymph # [place] # Baso # Seg Neutrophils % Seg Neuts % (Manual) Lymphocytes % (Manual) Monocytes % (Manual) Eosinophils % (Manual) Basophils % (Manual) Nucleated RBC % Seg Neutrophils # Seg Neutrophils # Man Lymphocytes # (Manual) Monocytes # (Manual) Eosinophils # (Manual) PT INR Fibrinogen dRVVT Confirm Interp Factor V Activity POC ABG pH POC ABG pCO2 POC ABG pO2 Sodium Potassium Chloride 96.4 L Carbon Dioxide 21 L BUN 57 H Creatinine 2.1 H Glucose 151 H POC Glucose 146 H 141 H Lactic Acid Calcium 8.3 L Phosphorus Magnesium Direct Bilirubin ALT Alkaline Phosphatase Troponin T C-Reactive Protein Total Protein Albumin Triglycerides Cholesterol LDL Cholesterol Direct HDL Cholesterol Urine WBC (Auto) Urine Creatinine Urine Total Protein Vancomycin Trough Rheumatoid Factor Complement C4 Miscellaneous Test Crossmatch 10/11/16 10/11/16 10/11/16 04:15 04:15 05:30 WBC 28.3 H RBC 3.12 L Hgb 9.3 L Hct 28.7 L D MCV MCH MCHC RDW 17.7 H Plt Count 128 L Lymph % (Auto) [place] % (Auto) Lymph # [place] # Baso # Seg Neutrophils % Seg Neuts % (Manual) Lymphocytes % (Manual) Monocytes % (Manual) Eosinophils % (Manual) Basophils % (Manual) Nucleated RBC % Seg Neutrophils # Seg Neutrophils # Man Lymphocytes # (Manual) Monocytes # (Manual) Eosinophils # (Manual) PT INR Fibrinogen dRVVT Confirm Interp Factor V Activity POC ABG pH POC ABG pCO2 POC ABG pO2 Sodium Potassium Chloride Carbon Dioxide BUN Creatinine Glucose POC Glucose 167 H Lactic Acid Calcium Phosphorus Magnesium Direct Bilirubin ALT Alkaline Phosphatase Troponin T C-Reactive Protein 15.80 H Total Protein Albumin Triglycerides Cholesterol LDL Cholesterol Direct HDL Cholesterol Urine WBC (Auto) Urine Creatinine Urine Total Protein Vancomycin Trough Rheumatoid Factor Complement C4 Miscellaneous Test Crossmatch 10/11/16 10/11/16 10/11/16 11:40 15:49 23:57 WBC RBC Hgb Hct MCV MCH MCHC RDW Plt Count Lymph % (Auto) [place] % (Auto) Lymph # [place] # Baso # Seg Neutrophils % Seg Neuts % (Manual) Lymphocytes % (Manual) Monocytes % (Manual) Eosinophils % (Manual) Basophils % (Manual) Nucleated RBC % Seg Neutrophils # Seg Neutrophils # Man Lymphocytes # (Manual) Monocytes # (Manual) Eosinophils # (Manual) PT INR Fibrinogen dRVVT Confirm Interp Factor V Activity POC ABG pH POC ABG pCO2 POC ABG pO2 Sodium Potassium Chloride Carbon Dioxide BUN Creatinine Glucose POC Glucose 139 H 168 H 161 H Lactic Acid Calcium Phosphorus Magnesium Direct Bilirubin ALT Alkaline Phosphatase Troponin T C-Reactive Protein Total Protein Albumin Triglycerides Cholesterol LDL Cholesterol Direct HDL Cholesterol Urine WBC (Auto) Urine Creatinine Urine Total Protein Vancomycin Trough Rheumatoid Factor Complement C4 Miscellaneous Test Crossmatch 10/12/16 10/12/16 10/12/16 04:40 04:40 05:44 WBC 22.5 H RBC 2.88 L Hgb 8.8 L Hct 26.8 L MCV MCH MCHC RDW 17.8 H Plt Count Lymph % (Auto) Anderson % (Auto) Lymph # Anderson # Baso # Seg Neutrophils % Seg Neuts % (Manual) Lymphocytes % (Manual) Monocytes % (Manual) Eosinophils % (Manual) Basophils % (Manual) Nucleated RBC % Seg Neutrophils # Seg Neutrophils # Man Lymphocytes # (Manual) Monocytes # (Manual) Eosinophils # (Manual) PT INR Fibrinogen dRVVT Confirm Interp Factor V Activity POC ABG pH POC ABG pCO2 POC ABG pO2 Sodium 134 L Potassium Chloride 93.0 L Carbon Dioxide BUN 74 H Creatinine 2.5 H Glucose 137 H POC Glucose 158 H Lactic Acid Calcium 8.2 L Phosphorus Magnesium Direct Bilirubin ALT Alkaline Phosphatase Troponin T C-Reactive Protein Total Protein Albumin Triglycerides Cholesterol LDL Cholesterol Direct HDL Cholesterol Urine WBC (Auto) Urine Creatinine Urine Total Protein Vancomycin Trough Rheumatoid Factor Complement C4 Miscellaneous Test Crossmatch 10/12/16 10/12/16 10/12/16 12:27 18:18 23:46 WBC RBC Hgb Hct MCV MCH MCHC RDW Plt Count Lymph % (Auto) Anderson % (Auto) Lymph # Anderson # Baso # Seg Neutrophils % Seg Neuts % (Manual) Lymphocytes % (Manual) Monocytes % (Manual) Eosinophils % (Manual) Basophils % (Manual) Nucleated RBC % Seg Neutrophils # Seg Neutrophils # Man Lymphocytes # (Manual) Monocytes # (Manual) Eosinophils # (Manual) PT INR Fibrinogen dRVVT Confirm Interp Factor V Activity POC ABG pH POC ABG pCO2 POC ABG pO2 Sodium Potassium Chloride Carbon Dioxide BUN Creatinine Glucose POC Glucose 153 H 140 H 150 H Lactic Acid Calcium Phosphorus Magnesium Direct Bilirubin ALT Alkaline Phosphatase Troponin T C-Reactive Protein Total Protein Albumin Triglycerides Cholesterol LDL Cholesterol Direct HDL Cholesterol Urine WBC (Auto) Urine Creatinine Urine Total Protein Vancomycin Trough Rheumatoid Factor Complement C4 Miscellaneous Test Crossmatch 10/13/16 10/13/16 10/13/16 06:22 09:20 12:29 WBC RBC Hgb Hct MCV MCH MCHC RDW Plt Count Lymph % (Auto) Anderson % (Auto) Lymph # Anderson # Baso # Seg Neutrophils % Seg Neuts % (Manual) Lymphocytes % (Manual) Monocytes % (Manual) Eosinophils % (Manual) Basophils % (Manual) Nucleated RBC % Seg Neutrophils # Seg Neutrophils # Man Lymphocytes # (Manual) Monocytes # (Manual) Eosinophils # (Manual) PT INR Fibrinogen dRVVT Confirm Interp Factor V Activity POC ABG pH POC ABG pCO2 POC ABG pO2 Sodium Potassium Chloride Carbon Dioxide BUN Creatinine Glucose POC Glucose 165 H 193 H Lactic Acid Calcium Phosphorus Magnesium Direct Bilirubin ALT Alkaline Phosphatase Troponin T C-Reactive Protein Total Protein Albumin Triglycerides Cholesterol LDL Cholesterol Direct HDL Cholesterol Urine WBC (Auto) Urine Creatinine Urine Total Protein Vancomycin Trough Rheumatoid Factor Complement C4 Miscellaneous Test Flexitest 1 H Crossmatch 10/13/16 10/13/16 10/13/16 18:09 Unknown Unknown WBC 23.4 H RBC 2.83 L Hgb 8.7 L Hct 26.1 L MCV MCH MCHC RDW 18.1 H Plt Count Lymph % (Auto) Anderson % (Auto) Lymph # Anderson # Baso # Seg Neutrophils % Seg Neuts % (Manual) Lymphocytes % (Manual) Monocytes % (Manual) Eosinophils % (Manual) Basophils % (Manual) Nucleated RBC % Seg Neutrophils # Seg Neutrophils # Man Lymphocytes # (Manual) Monocytes # (Manual) Eosinophils # (Manual) PT INR Fibrinogen dRVVT Confirm Interp Factor V Activity POC ABG pH POC ABG pCO2 POC ABG pO2 Sodium Potassium Chloride 95.8 L Carbon Dioxide BUN 82 H Creatinine 2.6 H Glucose 152 H POC Glucose 166 H Lactic Acid Calcium Phosphorus Magnesium Direct Bilirubin ALT Alkaline Phosphatase Troponin T C-Reactive Protein Total Protein Albumin Triglycerides Cholesterol LDL Cholesterol Direct HDL Cholesterol Urine WBC (Auto) Urine Creatinine Urine Total Protein Vancomycin Trough Rheumatoid Factor Complement C4 Miscellaneous Test Crossmatch 10/14/16 10/14/16 10/14/16 05:38 06:35 08:10 WBC 20.7 H RBC 2.81 L Hgb 8.4 L Hct 27.2 L MCV MCH MCHC RDW 19.4 H Plt Count Lymph % (Auto) Anderson % (Auto) Lymph # Anderson # Baso # Seg Neutrophils % Seg Neuts % (Manual) Lymphocytes % (Manual) Monocytes % (Manual) Eosinophils % (Manual) Basophils % (Manual) Nucleated RBC % Seg Neutrophils # Seg Neutrophils # Man Lymphocytes # (Manual) Monocytes # (Manual) Eosinophils # (Manual) PT INR Fibrinogen dRVVT Confirm Interp Factor V Activity POC ABG pH POC ABG pCO2 POC ABG pO2 Sodium Potassium Chloride Carbon Dioxide BUN 58 H Creatinine 1.9 H Glucose 169 H POC Glucose 195 H Lactic Acid Calcium Phosphorus Magnesium Direct Bilirubin ALT Alkaline Phosphatase Troponin T C-Reactive Protein Total Protein Albumin Triglycerides Cholesterol LDL Cholesterol Direct HDL Cholesterol Urine WBC (Auto) Urine Creatinine Urine Total Protein Vancomycin Trough Rheumatoid Factor Complement C4 Miscellaneous Test Crossmatch 10/14/16 10/14/16 10/14/16 11:44 17:13 23:28 WBC RBC Hgb Hct MCV MCH MCHC RDW Plt Count Lymph % (Auto) Anderson % (Auto) Lymph # Anderson # Baso # Seg Neutrophils % Seg Neuts % (Manual) Lymphocytes % (Manual) Monocytes % (Manual) Eosinophils % (Manual) Basophils % (Manual) Nucleated RBC % Seg Neutrophils # Seg Neutrophils # Man Lymphocytes # (Manual) Monocytes # (Manual) Eosinophils # (Manual) PT INR Fibrinogen dRVVT Confirm Interp Factor V Activity POC ABG pH POC ABG pCO2 POC ABG pO2 Sodium Potassium Chloride Carbon Dioxide BUN Creatinine Glucose POC Glucose 174 H 121 H 151 H Lactic Acid Calcium Phosphorus Magnesium Direct Bilirubin ALT Alkaline Phosphatase Troponin T C-Reactive Protein Total Protein Albumin Triglycerides Cholesterol LDL Cholesterol Direct HDL Cholesterol Urine WBC (Auto) Urine Creatinine Urine Total Protein Vancomycin Trough Rheumatoid Factor Complement C4 Miscellaneous Test Crossmatch 10/15/16 10/15/16 10/15/16 05:06 12:26 17:48 WBC RBC Hgb Hct MCV MCH MCHC RDW Plt Count Lymph % (Auto) Anderson % (Auto) Lymph # Anderson # Baso # Seg Neutrophils % Seg Neuts % (Manual) Lymphocytes % (Manual) Monocytes % (Manual) Eosinophils % (Manual) Basophils % (Manual) Nucleated RBC % Seg Neutrophils # Seg Neutrophils # Man Lymphocytes # (Manual) Monocytes # (Manual) Eosinophils # (Manual) PT INR Fibrinogen dRVVT Confirm Interp Factor V Activity POC ABG pH POC ABG pCO2 POC ABG pO2 Sodium Potassium Chloride Carbon Dioxide BUN Creatinine Glucose POC Glucose 151 H 149 H 153 H Lactic Acid Calcium Phosphorus Magnesium Direct Bilirubin ALT Alkaline Phosphatase Troponin T C-Reactive Protein Total Protein Albumin Triglycerides Cholesterol LDL Cholesterol Direct HDL Cholesterol Urine WBC (Auto) Urine Creatinine Urine Total Protein Vancomycin Trough Rheumatoid Factor Complement C4 Miscellaneous Test Crossmatch 10/15/16 10/15/16 10/16/16 Unknown Unknown 00:02 WBC 23.4 H RBC 2.78 L Hgb 8.5 L Hct 25.7 L MCV MCH MCHC RDW 18.7 H Plt Count Lymph % (Auto) Anderson % (Auto) Lymph # Anderson # Baso # Seg Neutrophils % Seg Neuts % (Manual) Lymphocytes % (Manual) Monocytes % (Manual) Eosinophils % (Manual) Basophils % (Manual) Nucleated RBC % Seg Neutrophils # Seg Neutrophils # Man Lymphocytes # (Manual) Monocytes # (Manual) Eosinophils # (Manual) PT INR Fibrinogen dRVVT Confirm Interp Factor V Activity POC ABG pH POC ABG pCO2 POC ABG pO2 Sodium Potassium Chloride Carbon Dioxide BUN 73 H Creatinine 2.3 H Glucose 120 H POC Glucose 137 H Lactic Acid Calcium Phosphorus Magnesium Direct Bilirubin ALT Alkaline Phosphatase Troponin T C-Reactive Protein Total Protein Albumin Triglycerides Cholesterol LDL Cholesterol Direct HDL Cholesterol Urine WBC (Auto) Urine Creatinine Urine Total Protein Vancomycin Trough Rheumatoid Factor Complement C4 Miscellaneous Test Crossmatch 10/16/16 10/16/16 10/16/16 05:44 06:25 06:25 WBC 22.5 H RBC 2.76 L Hgb 8.3 L Hct 25.2 L MCV MCH MCHC RDW 18.3 H Plt Count Lymph % (Auto) Anderson % (Auto) Lymph # Anderson # Baso # Seg Neutrophils % Seg Neuts % (Manual) Lymphocytes % (Manual) Monocytes % (Manual) Eosinophils % (Manual) Basophils % (Manual) Nucleated RBC % Seg Neutrophils # Seg Neutrophils # Man Lymphocytes # (Manual) Monocytes # (Manual) Eosinophils # (Manual) PT INR Fibrinogen dRVVT Confirm Interp Factor V Activity POC ABG pH POC ABG pCO2 POC ABG pO2 Sodium Potassium Chloride Carbon Dioxide BUN 92 H Creatinine 3.0 H Glucose 138 H POC Glucose 110 H Lactic Acid Calcium Phosphorus Magnesium Direct Bilirubin ALT Alkaline Phosphatase Troponin T C-Reactive Protein Total Protein Albumin Triglycerides Cholesterol LDL Cholesterol Direct HDL Cholesterol Urine WBC (Auto) Urine Creatinine Urine Total Protein Vancomycin Trough Rheumatoid Factor Complement C4 Miscellaneous Test Crossmatch 10/16/16 10/16/16 10/16/16 11:27 11:48 17:36 WBC RBC Hgb Hct MCV MCH MCHC RDW Plt Count Lymph % (Auto) Anderson % (Auto) Lymph # Anderson # Baso # Seg Neutrophils % Seg Neuts % (Manual) Lymphocytes % (Manual) Monocytes % (Manual) Eosinophils % (Manual) Basophils % (Manual) Nucleated RBC % Seg Neutrophils # Seg Neutrophils # Man Lymphocytes # (Manual) Monocytes # (Manual) Eosinophils # (Manual) PT INR Fibrinogen dRVVT Confirm Interp Factor V Activity POC ABG pH 7.582 H POC ABG pCO2 27.4 L POC ABG pO2 110 H Sodium Potassium Chloride Carbon Dioxide BUN Creatinine Glucose POC Glucose 121 H 133 H Lactic Acid Calcium Phosphorus Magnesium Direct Bilirubin ALT Alkaline Phosphatase Troponin T C-Reactive Protein Total Protein Albumin Triglycerides Cholesterol LDL Cholesterol Direct HDL Cholesterol Urine WBC (Auto) Urine Creatinine Urine Total Protein Vancomycin Trough Rheumatoid Factor Complement C4 Miscellaneous Test Crossmatch 10/16/16 10/17/16 10/17/16 20:48 04:24 04:24 WBC 21.4 H RBC 2.72 L Hgb 8.0 L Hct 25.2 L MCV MCH MCHC RDW 18.0 H Plt Count Lymph % (Auto) Anderson % (Auto) Lymph # Anderson # Baso # Seg Neutrophils % Seg Neuts % (Manual) Lymphocytes % (Manual) Monocytes % (Manual) Eosinophils % (Manual) Basophils % (Manual) Nucleated RBC % Seg Neutrophils # Seg Neutrophils # Man Lymphocytes # (Manual) Monocytes # (Manual) Eosinophils # (Manual) PT INR Fibrinogen dRVVT Confirm Interp Factor V Activity POC ABG pH 7.561 H POC ABG pCO2 24.4 L POC ABG pO2 77 L Sodium 148 H Potassium Chloride Carbon Dioxide BUN 104 H Creatinine 3.0 H Glucose 149 H POC Glucose Lactic Acid Calcium Phosphorus Magnesium Direct Bilirubin ALT Alkaline Phosphatase 138 H Troponin T C-Reactive Protein Total Protein 6.2 L Albumin 1.5 L Triglycerides Cholesterol LDL Cholesterol Direct HDL Cholesterol Urine WBC (Auto) Urine Creatinine Urine Total Protein Vancomycin Trough Rheumatoid Factor Complement C4 Miscellaneous Test Crossmatch 10/17/16 10/17/16 10/17/16 06:02 12:17 17:14 WBC RBC Hgb Hct MCV MCH MCHC RDW Plt Count Lymph % (Auto) Anderson % (Auto) Lymph # Anderson # Baso # Seg Neutrophils % Seg Neuts % (Manual) Lymphocytes % (Manual) Monocytes % (Manual) Eosinophils % (Manual) Basophils % (Manual) Nucleated RBC % Seg Neutrophils # Seg Neutrophils # Man Lymphocytes # (Manual) Monocytes # (Manual) Eosinophils # (Manual) PT INR Fibrinogen dRVVT Confirm Interp Factor V Activity POC ABG pH POC ABG pCO2 POC ABG pO2 Sodium Potassium Chloride Carbon Dioxide BUN Creatinine Glucose POC Glucose 170 H 167 H 126 H Lactic Acid Calcium Phosphorus Magnesium Direct Bilirubin ALT Alkaline Phosphatase Troponin T C-Reactive Protein Total Protein Albumin Triglycerides Cholesterol LDL Cholesterol Direct HDL Cholesterol Urine WBC (Auto) Urine Creatinine Urine Total Protein Vancomycin Trough Rheumatoid Factor Complement C4 Miscellaneous Test Crossmatch 10/17/16 10/18/16 10/18/16 23:17 04:00 04:00 WBC 20.7 H RBC 2.47 L Hgb 7.4 L Hct 22.9 L MCV MCH MCHC RDW 17.5 H Plt Count Lymph % (Auto) Anderson % (Auto) Lymph # Anderson # Baso # Seg Neutrophils % Seg Neuts % (Manual) Lymphocytes % (Manual) Monocytes % (Manual) Eosinophils % (Manual) Basophils % (Manual) Nucleated RBC % Seg Neutrophils # Seg Neutrophils # Man Lymphocytes # (Manual) Monocytes # (Manual) Eosinophils # (Manual) PT INR Fibrinogen dRVVT Confirm Interp Factor V Activity POC ABG pH POC ABG pCO2 POC ABG pO2 Sodium 149 H Potassium Chloride 107.9 H Carbon Dioxide 20 L BUN 117 H Creatinine 3.2 H Glucose 119 H POC Glucose 121 H Lactic Acid Calcium Phosphorus Magnesium Direct Bilirubin ALT Alkaline Phosphatase Troponin T C-Reactive Protein Total Protein Albumin Triglycerides Cholesterol LDL Cholesterol Direct HDL Cholesterol Urine WBC (Auto) Urine Creatinine Urine Total Protein Vancomycin Trough Rheumatoid Factor Complement C4 Miscellaneous Test Crossmatch 10/18/16 10/18/16 10/18/16 05:23 10:46 17:30 WBC RBC Hgb Hct MCV MCH MCHC RDW Plt Count Lymph % (Auto) Anderson % (Auto) Lymph # Anderson # Baso # Seg Neutrophils % Seg Neuts % (Manual) Lymphocytes % (Manual) Monocytes % (Manual) Eosinophils % (Manual) Basophils % (Manual) Nucleated RBC % Seg Neutrophils # Seg Neutrophils # Man Lymphocytes # (Manual) Monocytes # (Manual) Eosinophils # (Manual) PT INR Fibrinogen dRVVT Confirm Interp Factor V Activity POC ABG pH POC ABG pCO2 POC ABG pO2 Sodium Potassium Chloride Carbon Dioxide BUN Creatinine Glucose POC Glucose 119 H 155 H 124 H Lactic Acid Calcium Phosphorus Magnesium Direct Bilirubin ALT Alkaline Phosphatase Troponin T C-Reactive Protein Total Protein Albumin Triglycerides Cholesterol LDL Cholesterol Direct HDL Cholesterol Urine WBC (Auto) Urine Creatinine Urine Total Protein Vancomycin Trough Rheumatoid Factor Complement C4 Miscellaneous Test Crossmatch 10/19/16 10/19/16 10/19/16 04:00 04:00 05:25 WBC 17.4 H RBC 2.54 L Hgb 7.7 L Hct 23.6 L MCV MCH MCHC RDW 17.3 H Plt Count Lymph % (Auto) Anderson % (Auto) Lymph # Anderson # Baso # Seg Neutrophils % Seg Neuts % (Manual) Lymphocytes % (Manual) Monocytes % (Manual) Eosinophils % (Manual) Basophils % (Manual) Nucleated RBC % Seg Neutrophils # Seg Neutrophils # Man Lymphocytes # (Manual) Monocytes # (Manual) Eosinophils # (Manual) PT INR Fibrinogen dRVVT Confirm Interp Factor V Activity POC ABG pH POC ABG pCO2 POC ABG pO2 Sodium Potassium Chloride Carbon Dioxide BUN 72 H Creatinine 2.1 H Glucose 116 H POC Glucose 119 H Lactic Acid Calcium Phosphorus Magnesium Direct Bilirubin ALT Alkaline Phosphatase Troponin T C-Reactive Protein Total Protein Albumin Triglycerides Cholesterol LDL Cholesterol Direct HDL Cholesterol Urine WBC (Auto) Urine Creatinine Urine Total Protein Vancomycin Trough Rheumatoid Factor Complement C4 Miscellaneous Test Crossmatch 10/19/16 10/19/16 10/20/16 11:46 23:59 06:00 WBC RBC Hgb Hct MCV MCH MCHC RDW Plt Count Lymph % (Auto) Anderson % (Auto) Lymph # Anderson # Baso # Seg Neutrophils % Seg Neuts % (Manual) Lymphocytes % (Manual) Monocytes % (Manual) Eosinophils % (Manual) Basophils % (Manual) Nucleated RBC % Seg Neutrophils # Seg Neutrophils # Man Lymphocytes # (Manual) Monocytes # (Manual) Eosinophils # (Manual) PT INR Fibrinogen dRVVT Confirm Interp Factor V Activity POC ABG pH POC ABG pCO2 POC ABG pO2 Sodium Potassium Chloride Carbon Dioxide 17 L BUN 94 H Creatinine 2.7 H Glucose POC Glucose 116 H 117 H Lactic Acid Calcium Phosphorus Magnesium Direct Bilirubin ALT Alkaline Phosphatase Troponin T C-Reactive Protein Total Protein Albumin Triglycerides Cholesterol LDL Cholesterol Direct HDL Cholesterol Urine WBC (Auto) Urine Creatinine Urine Total Protein Vancomycin Trough Rheumatoid Factor Complement C4 Miscellaneous Test Crossmatch 10/20/16 10/20/16 10/20/16 06:00 11:49 16:00 WBC 19.7 H RBC 2.51 L Hgb 7.7 L Hct 23.5 L MCV MCH MCHC RDW 17.5 H Plt Count Lymph % (Auto) Anderson % (Auto) Lymph # Anderson # Baso # Seg Neutrophils % Seg Neuts % (Manual) Lymphocytes % (Manual) Monocytes % (Manual) Eosinophils % (Manual) Basophils % (Manual) Nucleated RBC % Seg Neutrophils # Seg Neutrophils # Man Lymphocytes # (Manual) Monocytes # (Manual) Eosinophils # (Manual) PT INR Fibrinogen dRVVT Confirm Interp Factor V Activity POC ABG pH POC ABG pCO2 POC ABG pO2 Sodium Potassium Chloride Carbon Dioxide BUN Creatinine Glucose POC Glucose 117 H Lactic Acid Calcium Phosphorus Magnesium Direct Bilirubin ALT Alkaline Phosphatase Troponin T C-Reactive Protein Total Protein Albumin Triglycerides Cholesterol LDL Cholesterol Direct HDL Cholesterol Urine WBC (Auto) Urine Creatinine Urine Total Protein Vancomycin Trough Rheumatoid Factor Complement C4 Miscellaneous Test Flexitest 1 H Crossmatch 10/20/16 10/20/16 10/21/16 18:36 23:39 04:00 WBC RBC Hgb Hct MCV MCH MCHC RDW Plt Count Lymph % (Auto) Anderson % (Auto) Lymph # Anderson # Baso # Seg Neutrophils % Seg Neuts % (Manual) Lymphocytes % (Manual) Monocytes % (Manual) Eosinophils % (Manual) Basophils % (Manual) Nucleated RBC % Seg Neutrophils # Seg Neutrophils # Man Lymphocytes # (Manual) Monocytes # (Manual) Eosinophils # (Manual) PT INR Fibrinogen dRVVT Confirm Interp Factor V Activity POC ABG pH POC ABG pCO2 POC ABG pO2 Sodium Potassium 5.4 H D Chloride Carbon Dioxide 15 L BUN 110 H Creatinine 3.0 H Glucose POC Glucose 127 H 114 H Lactic Acid Calcium Phosphorus Magnesium Direct Bilirubin ALT Alkaline Phosphatase Troponin T C-Reactive Protein Total Protein Albumin Triglycerides Cholesterol LDL Cholesterol Direct HDL Cholesterol Urine WBC (Auto) Urine Creatinine Urine Total Protein Vancomycin Trough Rheumatoid Factor Complement C4 Miscellaneous Test Crossmatch 10/21/16 10/21/16 10/22/16 05:54 23:46 05:18 WBC RBC Hgb Hct MCV MCH MCHC RDW Plt Count Lymph % (Auto) Anderson % (Auto) Lymph # Anderson # Baso # Seg Neutrophils % Seg Neuts % (Manual) Lymphocytes % (Manual) Monocytes % (Manual) Eosinophils % (Manual) Basophils % (Manual) Nucleated RBC % Seg Neutrophils # Seg Neutrophils # Man Lymphocytes # (Manual) Monocytes # (Manual) Eosinophils # (Manual) PT INR Fibrinogen dRVVT Confirm Interp Factor V Activity POC ABG pH POC ABG pCO2 POC ABG pO2 Sodium Potassium Chloride Carbon Dioxide BUN Creatinine Glucose POC Glucose 119 H 108 H 109 H Lactic Acid Calcium Phosphorus Magnesium Direct Bilirubin ALT Alkaline Phosphatase Troponin T C-Reactive Protein Total Protein Albumin Triglycerides Cholesterol LDL Cholesterol Direct HDL Cholesterol Urine WBC (Auto) Urine Creatinine Urine Total Protein Vancomycin Trough Rheumatoid Factor Complement C4 Miscellaneous Test Crossmatch 10/22/16 10/22/16 10/22/16 06:40 06:40 06:40 WBC 14.0 H RBC 2.03 L Hgb 7.0 L Hct 20.5 L MCV 98 H MCH 34 H MCHC 35 H RDW 17.8 H Plt Count Lymph % (Auto) Anderson % (Auto) 9.9 H Lymph # Anderson # 1.4 H Baso # 0.2 H Seg Neutrophils % 72.0 H Seg Neuts % (Manual) Lymphocytes % (Manual) Monocytes % (Manual) Eosinophils % (Manual) Basophils % (Manual) Nucleated RBC % Seg Neutrophils # 10.0 H Seg Neutrophils # Man Lymphocytes # (Manual) Monocytes # (Manual) Eosinophils # (Manual) PT INR Fibrinogen dRVVT Confirm Interp Factor V Activity POC ABG pH POC ABG pCO2 POC ABG pO2 Sodium 130 L D Potassium Chloride 92.4 L Carbon Dioxide 20 L BUN 50 H Creatinine 1.6 H Glucose 589 H* POC Glucose Lactic Acid Calcium 7.8 L D Phosphorus Magnesium 1.60 L Direct Bilirubin ALT Alkaline Phosphatase Troponin T C-Reactive Protein Total Protein Albumin Triglycerides Cholesterol LDL Cholesterol Direct HDL Cholesterol Urine WBC (Auto) Urine Creatinine Urine Total Protein Vancomycin Trough Rheumatoid Factor Complement C4 Miscellaneous Test Crossmatch 10/22/16 10/22/16 10/22/16 11:39 16:44 23:36 WBC RBC Hgb Hct MCV MCH MCHC RDW Plt Count Lymph % (Auto) Anderson % (Auto) Lymph # Anderson # Baso # Seg Neutrophils % Seg Neuts % (Manual) Lymphocytes % (Manual) Monocytes % (Manual) Eosinophils % (Manual) Basophils % (Manual) Nucleated RBC % Seg Neutrophils # Seg Neutrophils # Man Lymphocytes # (Manual) Monocytes # (Manual) Eosinophils # (Manual) PT INR Fibrinogen dRVVT Confirm Interp Factor V Activity POC ABG pH POC ABG pCO2 POC ABG pO2 Sodium Potassium Chloride Carbon Dioxide BUN Creatinine Glucose POC Glucose 142 H 163 H 123 H Lactic Acid Calcium Phosphorus Magnesium Direct Bilirubin ALT Alkaline Phosphatase Troponin T C-Reactive Protein Total Protein Albumin Triglycerides Cholesterol LDL Cholesterol Direct HDL Cholesterol Urine WBC (Auto) Urine Creatinine Urine Total Protein Vancomycin Trough Rheumatoid Factor Complement C4 Miscellaneous Test Crossmatch 10/23/16 10/23/16 10/23/16 04:58 06:00 12:12 WBC RBC Hgb Hct MCV MCH MCHC RDW Plt Count Lymph % (Auto) Anderson % (Auto) Lymph # Anderson # Baso # Seg Neutrophils % Seg Neuts % (Manual) Lymphocytes % (Manual) Monocytes % (Manual) Eosinophils % (Manual) Basophils % (Manual) Nucleated RBC % Seg Neutrophils # Seg Neutrophils # Man Lymphocytes # (Manual) Monocytes # (Manual) Eosinophils # (Manual) PT INR Fibrinogen dRVVT Confirm Interp Factor V Activity POC ABG pH POC ABG pCO2 POC ABG pO2 Sodium 133 L Potassium 3.5 L Chloride 96.1 L Carbon Dioxide 18 L BUN 76 H Creatinine 2.1 H Glucose POC Glucose 133 H 138 H Lactic Acid Calcium 8.3 L Phosphorus Magnesium Direct Bilirubin ALT Alkaline Phosphatase Troponin T C-Reactive Protein Total Protein Albumin Triglycerides Cholesterol LDL Cholesterol Direct HDL Cholesterol Urine WBC (Auto) Urine Creatinine Urine Total Protein Vancomycin Trough Rheumatoid Factor Complement C4 Miscellaneous Test Crossmatch 10/23/16 10/23/16 10/24/16 16:53 23:37 04:00 WBC RBC Hgb Hct MCV MCH MCHC RDW Plt Count Lymph % (Auto) Anderson % (Auto) Lymph # Anderson # Baso # Seg Neutrophils % Seg Neuts % (Manual) Lymphocytes % (Manual) Monocytes % (Manual) Eosinophils % (Manual) Basophils % (Manual) Nucleated RBC % Seg Neutrophils # Seg Neutrophils # Man Lymphocytes # (Manual) Monocytes # (Manual) Eosinophils # (Manual) PT INR Fibrinogen dRVVT Confirm Interp Factor V Activity POC ABG pH POC ABG pCO2 POC ABG pO2 Sodium 131 L Potassium Chloride 94.5 L Carbon Dioxide 19 L BUN 97 H Creatinine 2.6 H Glucose 110 H POC Glucose 125 H 123 H Lactic Acid Calcium 8.3 L Phosphorus Magnesium Direct Bilirubin ALT Alkaline Phosphatase Troponin T C-Reactive Protein Total Protein Albumin Triglycerides Cholesterol LDL Cholesterol Direct HDL Cholesterol Urine WBC (Auto) Urine Creatinine Urine Total Protein Vancomycin Trough Rheumatoid Factor Complement C4 Miscellaneous Test Crossmatch 10/24/16 10/24/16 10/24/16 07:49 11:39 17:52 WBC RBC Hgb 6.0 L Hct 19.7 L* MCV MCH MCHC RDW Plt Count Lymph % (Auto) Anderson % (Auto) Lymph # Anderson # Baso # Seg Neutrophils % Seg Neuts % (Manual) Lymphocytes % (Manual) Monocytes % (Manual) Eosinophils % (Manual) Basophils % (Manual) Nucleated RBC % Seg Neutrophils # Seg Neutrophils # Man Lymphocytes # (Manual) Monocytes # (Manual) Eosinophils # (Manual) PT INR Fibrinogen dRVVT Confirm Interp Factor V Activity POC ABG pH POC ABG pCO2 POC ABG pO2 Sodium Potassium Chloride Carbon Dioxide BUN Creatinine Glucose POC Glucose 106 H 158 H Lactic Acid Calcium Phosphorus Magnesium Direct Bilirubin ALT Alkaline Phosphatase Troponin T C-Reactive Protein Total Protein Albumin Triglycerides Cholesterol LDL Cholesterol Direct HDL Cholesterol Urine WBC (Auto) Urine Creatinine Urine Total Protein Vancomycin Trough Rheumatoid Factor Complement C4 Miscellaneous Test Crossmatch 10/24/16 10/24/16 10/24/16 20:00 22:27 Unknown WBC RBC Hgb 9.4 L D Hct 27.5 L D MCV MCH MCHC RDW Plt Count Lymph % (Auto) [place] % (Auto) Lymph # Anderson # Baso # Seg Neutrophils % Seg Neuts % (Manual) Lymphocytes % (Manual) Monocytes % (Manual) Eosinophils % (Manual) Basophils % (Manual) Nucleated RBC % Seg Neutrophils # Seg Neutrophils # Man Lymphocytes # (Manual) Monocytes # (Manual) Eosinophils # (Manual) PT INR Fibrinogen dRVVT Confirm Interp Factor V Activity POC ABG pH POC ABG pCO2 POC ABG pO2 Sodium Potassium Chloride Carbon Dioxide BUN Creatinine Glucose POC Glucose 125 H Lactic Acid Calcium Phosphorus Magnesium Direct Bilirubin ALT Alkaline Phosphatase Troponin T C-Reactive Protein Total Protein Albumin Triglycerides Cholesterol LDL Cholesterol Direct HDL Cholesterol Urine WBC (Auto) Urine Creatinine Urine Total Protein Vancomycin Trough Rheumatoid Factor Complement C4 Miscellaneous Test Crossmatch See Detail 10/25/16 10/25/16 10/25/16 04:00 04:00 04:00 WBC 14.2 H RBC 2.98 L Hgb 9.0 L Hct 26.2 L MCV MCH MCHC RDW 16.6 H Plt Count Lymph % (Auto) Anderson % (Auto) 10.7 H Lymph # Anderson # 1.5 H Baso # Seg Neutrophils % 73.6 H Seg Neuts % (Manual) Lymphocytes % (Manual) Monocytes % (Manual) Eosinophils % (Manual) Basophils % (Manual) Nucleated RBC % Seg Neutrophils # 10.5 H Seg Neutrophils # Man Lymphocytes # (Manual) Monocytes # (Manual) Eosinophils # (Manual) PT INR Fibrinogen dRVVT Confirm Interp Factor V Activity POC ABG pH POC ABG pCO2 POC ABG pO2 Sodium 132 L Potassium Chloride 94.7 L Carbon Dioxide BUN 51 H Creatinine 1.6 H Glucose 130 H POC Glucose Lactic Acid Calcium 8.3 L Phosphorus 1.60 L D Magnesium Direct Bilirubin ALT Alkaline Phosphatase Troponin T C-Reactive Protein Total Protein Albumin Triglycerides Cholesterol LDL Cholesterol Direct HDL Cholesterol Urine WBC (Auto) Urine Creatinine Urine Total Protein Vancomycin Trough Rheumatoid Factor Complement C4 Miscellaneous Test Crossmatch 10/25/16 10/25/16 04:32 11:48 WBC RBC Hgb Hct MCV MCH MCHC RDW Plt Count Lymph % (Auto) Anderson % (Auto) Lymph # Anderson # Baso # Seg Neutrophils % Seg Neuts % (Manual) Lymphocytes % (Manual) Monocytes % (Manual) Eosinophils % (Manual) Basophils % (Manual) Nucleated RBC % Seg Neutrophils # Seg Neutrophils # Man Lymphocytes # (Manual) Monocytes # (Manual) Eosinophils # (Manual) PT INR Fibrinogen dRVVT Confirm Interp Factor V Activity POC ABG pH POC ABG pCO2 POC ABG pO2 Sodium Potassium Chloride Carbon Dioxide BUN Creatinine Glucose POC Glucose 124 H 171 H Lactic Acid Calcium Phosphorus Magnesium Direct Bilirubin ALT Alkaline Phosphatase Troponin T C-Reactive Protein Total Protein Albumin Triglycerides Cholesterol LDL Cholesterol Direct HDL Cholesterol Urine WBC (Auto) Urine Creatinine Urine Total Protein Vancomycin Trough Rheumatoid Factor Complement C4 Miscellaneous Test Crossmatch Chest x-ray: report reviewed Allied health notes reviewed: RT
[2016-10-25] MEDS: DIFLUCAN 200 MG/100 ML BAG IV SCH (18:30)
--- NOTE | 2016-10-25 19:26 | Cat Scan Report ---
FINAL REPORT PROCEDURE: CT ABDOMEN PELVIS WO CON TECHNIQUE: Computerized axial tomography of the abdomen and pelvis was performed without intravenous contrast. This study is performed without intravascular contrast material and its sensitivity for abdominal and pelvic pathology, including neoplasms, inflammation, abscess, free fluid, thrombosis, arterial dissection and infarction, is reduced compared with a contrast enhanced study. HISTORY: new episode of sepsis eval for intrabdominal absce COMPARISON: Prior CT scan abdomen and pelvis 10/21/2016 FINDINGS: Lower Lung velazco: There appear to be small bilateral pleural effusions. There is worsening consolidation adjacent to the effusions particularly on the right. A in air bronchograms are present in both lung bases. This could represent atelectasis. I cannot exclude pneumonia. An NG tube is seen coiled in the patient's stomach. This was present on the prior exam. Heart is enlarged. Upper Abdomen: There is moderate amount of ascites collected in the abdomen and pelvis. The volume of ascites has not changed significantly. There is a percutaneous tract visualized in the anterior abdominal wall projecting in the left upper quadrant. This may be related to the previous gastrostomy tube. There is mild inflammatory change seen in the area. There is a small amount of gas still seen in the previous trach. I do not see a discrete abscess. A 2nd track is visualized in the right lower quadrant anterior laterally. This also contains a small amount of gas bubbles and mild adjacent inflammatory change. This is unchanged. Subcutaneous edema overlying the lateral aspect of the right and left side of the abdomen is unchanged. The liver is unremarkable. The gallbladder is surgically absent. Benign appearing fat-density nodule in the right adrenal glands suggesting lipoma or leiomyoma the right adrenal gland again visualized and unchanged. Left adrenal gland is unremarkable. The pancreas and spleen show no focal abnormalities. Kidneys, Ureters and Urinary bladder: No abnormality is seen. Herndon catheter is seen in the urinary bladder which is nearly empty. Retroperitoneum: Atherosclerotic changes are visualized. No evidence of aortic aneurysm. Nonspecific subcentimeter lymph nodes are seen in the retroperitoneum. No pathologically enlarged lymph nodes are identified. Bowel: There is a rectal tube present with an inflated balloon within the rectum. Everett of several loops of small bowel are mildly thickened. This extends into the lower pelvis and is unchanged. The everett of the sigmoid colon also appear to be mildly thickened. The appearance is similar to the prior study. Reproductive organs: Uterus and adnexa show no focal abnormalities. Other: No acute bony abnormalities are identified. IMPRESSION: Small bilateral pleural effusions are present. There is worsening consolidation in the lung bases consistent with worsening atelectasis or possibly developing pneumonia. Air bronchograms are present. The right side is affected more than the left. NG tube seen in the patient's stomach. There is a rectal tube also in place. The balloon is inflated in the rectum. Moderate amount of ascites has not changed significantly in volume since the prior study. Tracks from previous percutaneous gastrostomy tube and possibly a drainage catheter in the right lower quadrant are again visualized. Small bubbles of gas are seen in the tract. No significant fluid collection is seen in either location to suggest an abscess. Body wall edema is unchanged. There is persistent wall thickening involving the sigmoid colon and several loops of small bowel projecting into the pelvis. The appearance again suggests a nonspecific enteritis and colitis. This has not changed significantly compared to the prior study. I do not see evidence of bowel obstruction or free intraperitoneal gas.
[2016-10-25] MEDS ORDERED: TPN ADULT 2,016 ML IV SCH (20:00)
[2016-10-25] MEDS: INTRALIPID 20% 250 ML IV SCH (22:38)
[2016-10-26] MEDS: LOPRESSOR IV SCH ×6 (01:46→21:00)
[2016-10-26] MEDS: APRESOLINE IV PRN ×3 (03:34→20:30)
[2016-10-26] MEDS: ZOSYN/NS 2.25 GM/50ML 2.25 GM/50 ML BAG IV SCH ×3 (06:00→23:45)
[2016-10-26 07:16] LABS: Hematocrit 26.9 % (30.3-42.9); Hemoglobin 9.1 gm/dl (10.1-14.3); Mean Corpuscular HGB Conc 34 % (30-34); Mean Corpuscular Hemoglobin 30 pg (28-32); Mean Corpuscular Volume 88 fl (79-97); Platelet Count 354 K/mm3 (140-440); Red Blood Count 3.06 M/mm3 (3.65-5.03); Red Cell Distribution Width 16.9 % (13.2-15.2)
[2016-10-26 07:36] LABS: BUN/Creatinine Ratio 33.18; Calcium 8.5 mg/dL (8.4-10.2)
[2016-10-26] MEDS: fentaNYL DRIP Premix 2,000 MCG/100 ML BAG IV SCH (07:55)
[2016-10-26] MEDS: HumuLIN R SUB-Q SCH ×3 (08:02→17:57)
[2016-10-26 08:45] LABS: Basophils % (Manual) 0 % (0.0-1.8); Eosinophils % (Manual) 0 % (0.0-4.3); Total Cells Counted 100
[2016-10-26 08:46] LABS: Anisocytosis 1+
--- NOTE | 2016-10-26 08:50 | Progress Note ---
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 Although her serum creatinine noted to be lower, she needs to be maintained on dialysis for now . No evidence of renal recovery at this time. Shall keep her on Mondays, Wednesdays and Fridays schedule for now * Transfuse available blood products with dialysis as needed * Rate control per cardiology * Abx/antifungal per ID * Vent management per critical care * Dose medications for renal function * Avoid potential nephrotoxins Subjective Date of service: 10/26/16 Principal diagnosis: Acute resp failure on MVS; S/P Acute CVA; Acute Encephalopathy; JUANITA Interval history: Patient remains in the intensive care unit. Remains on the ventilator. On 30% FiO2. Opens her eyes. She is receiving TPN currently. A Herndon catheter as well as rectal tube is in place Objective - Vital Signs Vital signs: Vital Signs - 12hr 10/25/16 10/25/16 10/25/16 21:01 21:31 21:50 Temperature Pulse Rate 124 H 130 H 117 H Pulse Rate [ From Monitor] Respiratory 23 28 H Rate Blood Pressure 186/106 185/109 193/114 O2 Sat by Pulse 99 100 Oximetry 10/25/16 10/25/16 10/25/16 22:00 22:31 23:01 Temperature Pulse Rate 119 H 123 H 123 H Pulse Rate [ From Monitor] Respiratory 15 27 H 24 Rate Blood Pressure 193/114 193/114 187/104 O2 Sat by Pulse 100 100 100 Oximetry 10/25/16 10/25/16 10/25/16 23:15 23:31 23:53 Temperature 98.8 F Pulse Rate 116 H 121 H Pulse Rate [ From Monitor] Respiratory 22 Rate Blood Pressure 193/104 192/102 O2 Sat by Pulse 100 Oximetry 10/26/16 10/26/16 10/26/16 00:00 00:09 00:30 Temperature Pulse Rate 124 H 125 H 121 H Pulse Rate [ From Monitor] Respiratory 25 H 19 Rate Blood Pressure 186/101 186/61 185/86 O2 Sat by Pulse 100 100 100 Oximetry 0910/26/16 10/26/16 01:00 01:30 01:46 Temperature Pulse Rate 124 H 132 H 122 H Pulse Rate [ From Monitor] Respiratory 22 21 Rate Blood Pressure 167/87 180/91 172/90 O2 Sat by Pulse 100 96 Oximetry 10/26/16 10/26/16 10/26/16 01:57 02:00 02:30 Temperature Pulse Rate 117 H 116 H 121 H Pulse Rate [ From Monitor] Respiratory 20 23 Rate Blood Pressure 179/90 187/91 O2 Sat by Pulse 100 100 Oximetry 10/26/16 10/26/16 10/26/16 03:00 03:29 03:30 Temperature 99.9 F H Pulse Rate 125 H 124 H Pulse Rate [ From Monitor] Respiratory 20 19 Rate Blood Pressure 182/99 185/95 O2 Sat by Pulse 100 100 Oximetry 10/26/16 10/26/16 10/26/16 03:34 04:00 04:01 Temperature Pulse Rate 122 H 111 H Pulse Rate [ 102 H From Monitor] Respiratory 14 21 Rate Blood Pressure 185/95 123/62 O2 Sat by Pulse 100 100 Oximetry 10/26/16 10/26/16 10/26/16 04:13 04:30 05:01 Temperature Pulse Rate 123 H 126 H 126 H Pulse Rate [ From Monitor] Respiratory 23 23 Rate Blood Pressure 123/62 123/75 142/79 O2 Sat by Pulse 100 100 100 Oximetry 10/26/16 10/26/16 10/26/16 05:31 06:01 06:31 Temperature Pulse Rate 127 H 125 H 127 H Pulse Rate [ From Monitor] Respiratory 19 19 20 Rate Blood Pressure 176/96 163/104 171/101 O2 Sat by Pulse 100 100 100 Oximetry 10/26/16 10/26/16 10/26/16 06:40 07:01 07:58 Temperature Pulse Rate 113 H 117 H 119 H Pulse Rate [ From Monitor] Respiratory 16 Rate Blood Pressure 171/101 160/80 158/110 O2 Sat by Pulse 100 100 Oximetry - General Appearance General appearance: well-developed, well-nourished, appears stated age, other ( on the ventilator via tracheostomy tube) EENT: PERRL, mucous membranes moist Neck: no JVD, no thyromegaly, other (right IJ Vas-Cath in place) Respiratory: Present: Ronchi (bilateral scattered rhonchi) Cardiology: regular, normal heart rate, S1S2, no murmurs Gastrointestinal: normoactive bowel sounds, other (dressing noted) Integumentary: other (1+ edema) - Lab 10/26/16 07:06 10/26/16 07:06 Most recent lab results Calcium 8.5 mg/dL (8.4-10.2) 10/26/16 07:06 Phosphorus 1.70 mg/dL (2.5-4.5) L 10/26/16 07:06 Magnesium 1.90 mg/dL (1.7-2.3) 10/26/16 07:06 Urine Creatinine 54.8 mg/dL (0.1-20.0) H 09/21/16 12:00 Urine Sodium 36 mEq/L 09/16/16 19:19 Urine Total Protein 16 mg/dL (5-11.8) H 09/16/16 19:19
[2016-10-26] MEDS: PROTONIX IV SCH (09:22)
--- NOTE | 2016-10-26 10:36 | Progress Note ---
Assessment and Plan Patient is 46-year-old woman with a history of hypertension, diabetes mellitus, asthma, hyperlipidemia, chronic kidney disease and anxiety, who was brought in by family because she couldn't get her words out, her face was also twisted, she was admitted for acute CVA and accelerated hypertension, she had a hx of poor adherence with her medications, and uncontrolled htn. Patient's SBP on admission was noted be greater than 260. TPA was started but this it was discontinued after 5 minutes because her blood pressure became uncontrolled. The TPA was not initiated again because the patient was outside the TPA window. - Patient Problems (1) Acute respiratory failure with hypoxia Current Visit: Yes Status: Acute Plan to address problem: Continue with mechanical ventilatory support and daily SBTs as tolerated Currently tolerating ATP trials Lung protective strategies -VAP bundle, HOB >40 - SCDs for VTE prophylaxis - Stress ulcer prophylaxis -Bronchodilators- h/o asthma - TPN, accucheck with glycemic control - ABGs and CXR PRN (2) Acute blood loss anemia Current Visit: Yes Status: Resolved Plan to address problem: Transfuse for Hgh 7g/dl Monitor counts (3) Acute CVA (cerebrovascular accident) Current Visit: Yes Status: Acute Plan to address problem: CTScan -subacute MCA territory infarct Secondary stroke prophylaxis Neuroprotective measures Aspiration precautions (4) Chronic renal insufficiency Current Visit: Yes Status: Acute Qualifiers: Chronic kidney disease stage: C Plan to address problem: UF/HD per renal service Renal following (5) Uncontrolled hypertension Current Visit: Yes Status: Acute Plan to address problem: Monitor closely and adjust anti-hypertensive medications (6) Leukocytosis (leucocytosis) Current Visit: Yes Status: Acute Qualifiers: Leukocytosis type: leukemoid reaction Qualified Code(s): D72.823 - Leukemoid reaction Plan to address problem: Improving. ID following and monitoring (7) Dislodged gastrostomy tube Current Visit: Yes Status: Acute Plan to address problem: With bowel perforation/peritonitis( resolved) Remains NPO except medications and on TPN for nutritional support. (8) Fungemia Current Visit: Yes Status: Resolved Plan to address problem: Anti-fungal therapy per ID service. Subjective Date of service: 10/26/16 Principal diagnosis: Acute resp failure on MVS; S/P Acute CVA; Acute Encephalopathy; JUANITA Interval history: Seen and examined. Vitals, labs, medications, chart reviewed. On mechanical ventilatory support On TPN, with purulent drainage from the HEMA drain. High grade intermittent fevers. Scheduled for abdominal imaging- not yet done Discussed with RT and RN during interdisciplinary rounds. Tolerating SBT-currently on ATP Objective Vital Signs - 12hr 10/25/16 10/25/16 10/25/16 23:01 23:15 23:31 Temperature 98.8 F Pulse Rate 123 H 116 H Pulse Rate [ From Monitor] Respiratory 24 22 Rate Blood Pressure 187/104 193/104 O2 Sat by Pulse 100 100 Oximetry O2 Sat by Pulse Oximetry [ Assessment] 10/25/16 10/26/16 10/26/16 23:53 00:00 00:09 Temperature Pulse Rate 121 H 124 H 125 H Pulse Rate [ From Monitor] Respiratory 25 H Rate Blood Pressure 192/102 186/101 186/61 O2 Sat by Pulse 100 100 Oximetry O2 Sat by Pulse Oximetry [ Assessment] 10/26/16 10/26/16 10/26/16 00:30 01:00 01:30 Temperature Pulse Rate 121 H 124 H 132 H Pulse Rate [ From Monitor] Respiratory 19 22 21 Rate Blood Pressure 185/86 167/87 180/91 O2 Sat by Pulse 100 100 96 Oximetry O2 Sat by Pulse Oximetry [ Assessment] 10/26/16 10/26/16 10/26/16 01:46 01:57 02:00 Temperature Pulse Rate 122 H 117 H 116 H Pulse Rate [ From Monitor] Respiratory 20 Rate Blood Pressure 172/90 179/90 O2 Sat by Pulse 100 Oximetry O2 Sat by Pulse Oximetry [ Assessment] 10/26/16 10/26/16 10/26/16 02:30 03:00 03:29 Temperature 99.9 F H Pulse Rate 121 H 125 H Pulse Rate [ From Monitor] Respiratory 23 20 Rate Blood Pressure 187/91 182/99 O2 Sat by Pulse 100 100 Oximetry O2 Sat by Pulse Oximetry [ Assessment] 10/26/16 10/26/16 10/26/16 03:30 03:34 04:00 Temperature Pulse Rate 124 H 122 H Pulse Rate [ 102 H From Monitor] Respiratory 19 14 Rate Blood Pressure 185/95 185/95 O2 Sat by Pulse 100 100 Oximetry O2 Sat by Pulse Oximetry [ Assessment] 10/26/16 10/26/16 10/26/16 04:01 04:13 04:30 Temperature Pulse Rate 111 H 123 H 126 H Pulse Rate [ From Monitor] Respiratory 21 23 Rate Blood Pressure 123/62 123/62 123/75 O2 Sat by Pulse 100 100 100 Oximetry O2 Sat by Pulse Oximetry [ Assessment] 10/26/16 10/26/16 10/26/16 05:01 05:31 06:01 Temperature Pulse Rate 126 H 127 H 125 H Pulse Rate [ From Monitor] Respiratory 23 19 19 Rate Blood Pressure 142/79 176/96 163/104 O2 Sat by Pulse 100 100 100 Oximetry O2 Sat by Pulse Oximetry [ Assessment] 10/26/16 10/26/16 10/26/16 06:31 06:40 07:01 Temperature Pulse Rate 127 H 113 H 117 H Pulse Rate [ From Monitor] Respiratory 20 16 Rate Blood Pressure 171/101 171/101 160/80 O2 Sat by Pulse 100 100 Oximetry O2 Sat by Pulse Oximetry [ Assessment] 10/26/16 10/26/16 10/26/16 07:31 07:58 08:00 Temperature 99.6 F Pulse Rate 118 H 119 H Pulse Rate [ From Monitor] Respiratory 18 Rate Blood Pressure 163/109 158/110 O2 Sat by Pulse 100 100 Oximetry O2 Sat by Pulse 99 Oximetry [ Assessment] 10/26/16 10/26/16 10/26/16 08:01 08:31 09:01 Temperature Pulse Rate 120 H 121 H 124 H Pulse Rate [ From Monitor] Respiratory 23 27 H 25 H Rate Blood Pressure 158/110 158/110 158/110 O2 Sat by Pulse 100 100 96 Oximetry O2 Sat by Pulse Oximetry [ Assessment] 10/26/16 10/26/16 10/26/16 09:20 09:22 09:31 Temperature Pulse Rate 122 H 127 H Pulse Rate [ From Monitor] Respiratory 16 Rate Blood Pressure 179/107 191/104 O2 Sat by Pulse 100 99 Oximetry O2 Sat by Pulse Oximetry [ Assessment] 10/26/16 10:01 Temperature Pulse Rate 115 H Pulse Rate [ From Monitor] Respiratory 23 Rate Blood Pressure 156/95 O2 Sat by Pulse Oximetry O2 Sat by Pulse Oximetry [ Assessment] Constitutional: no acute distress, other (eyes open; not tracking movements) Eyes: non-icteric, other (tracheostomy tube in midline of neck) ENT: oropharynx moist Neck: supple, no lymphadenopathy Effort: normal, mildly labored Ascultation: Bilateral: clear, diminished breath sounds (bases), rales, rhonchi Cardiovascular: regular rate and rhythm Gastrointestinal: hypoactive bowel sounds, soft, non-tender, non-distended, other (hema drain in place) Integumentary: other (erythema to skin of back with some healing areas; no obvious TEN's features) Extremities: no cyanosis, no edema, pulses normal, no ischemia or petechiae Neurologic: pupils equal and round, other (encephalopathic) Psychiatric: other (unable to assess) CBC and BMP: 12/28/16 04:00 12/29/16 05:15 ABG, PT/INR, D-dimer: ABG POC ABG pH 7.561 (7.35-7.45) H 10/16/16 20:48 POC ABG pCO2 24.4 (35-45) L 10/16/16 20:48 POC ABG pO2 77 (80-105) L 10/16/16 20:48 POC ABG HCO3 21.9 10/16/16 20:48 POC ABG Total CO2 23 10/16/16 20:48 POC ABG O2 Sat 97 10/16/16 20:48 PT/INR, D-dimer PT 19.0 Sec. (12.2-14.9) H 10/09/16 03:45 INR 1.51 (0.87-1.13) H 10/09/16 03:45 Abnormal lab findings: Abnormal Labs 09/03/16 09/03/16 09/03/16 12:12 15:07 16:20 WBC RBC Hgb Hct MCV MCH MCHC RDW Plt Count Lymph % (Auto) Creek % (Auto) Lymph # Creek # Baso # Seg Neutrophils % Seg Neuts % (Manual) Lymphocytes % (Manual) Monocytes % (Manual) Eosinophils % (Manual) Basophils % (Manual) Nucleated RBC % Seg Neutrophils # Seg Neutrophils # Man Lymphocytes # (Manual) Monocytes # (Manual) Eosinophils # (Manual) PT INR Fibrinogen dRVVT Confirm Interp Factor V Activity POC ABG pH 7.452 H POC ABG pCO2 POC ABG pO2 Sodium Potassium Chloride Carbon Dioxide BUN Creatinine Glucose POC Glucose 178 H Lactic Acid Calcium Phosphorus 2.20 L Magnesium 1.60 L Direct Bilirubin ALT Alkaline Phosphatase Troponin T C-Reactive Protein Total Protein Albumin Triglycerides Cholesterol LDL Cholesterol Direct HDL Cholesterol Urine WBC (Auto) Urine Creatinine Urine Total Protein Vancomycin Trough Rheumatoid Factor Complement C4 Miscellaneous Test Crossmatch 09/03/16 09/03/16 09/03/16 17:57 17:58 23:50 WBC RBC Hgb Hct MCV MCH MCHC RDW Plt Count Lymph % (Auto) Creek % (Auto) Lymph # [place] # Baso # Seg Neutrophils % Seg Neuts % (Manual) Lymphocytes % (Manual) Monocytes % (Manual) Eosinophils % (Manual) Basophils % (Manual) Nucleated RBC % Seg Neutrophils # Seg Neutrophils # Man Lymphocytes # (Manual) Monocytes # (Manual) Eosinophils # (Manual) PT INR Fibrinogen dRVVT Confirm Interp Factor V Activity POC ABG pH POC ABG pCO2 POC ABG pO2 Sodium Potassium Chloride Carbon Dioxide BUN Creatinine Glucose POC Glucose 162 H 145 H Lactic Acid Calcium Phosphorus 2.30 L Magnesium Direct Bilirubin ALT Alkaline Phosphatase Troponin T C-Reactive Protein Total Protein Albumin Triglycerides Cholesterol LDL Cholesterol Direct HDL Cholesterol Urine WBC (Auto) Urine Creatinine Urine Total Protein Vancomycin Trough Rheumatoid Factor Complement C4 Miscellaneous Test Crossmatch 09/04/16 09/04/16 09/04/16 03:31 03:31 05:42 WBC RBC Hgb 9.7 L D Hct MCV 72 L MCH 23 L MCHC RDW 17.5 H Plt Count Lymph % (Auto) 11.1 L Creek % (Auto) Lymph # [place] # Baso # Seg Neutrophils % 84.3 H Seg Neuts % (Manual) Lymphocytes % (Manual) Monocytes % (Manual) Eosinophils % (Manual) Basophils % (Manual) Nucleated RBC % Seg Neutrophils # 8.9 H Seg Neutrophils # Man Lymphocytes # (Manual) Monocytes # (Manual) Eosinophils # (Manual) PT INR Fibrinogen dRVVT Confirm Interp Factor V Activity POC ABG pH POC ABG pCO2 POC ABG pO2 Sodium 135 L Potassium 2.9 L* Chloride 97.2 L Carbon Dioxide 19 L BUN Creatinine 1.7 H Glucose 170 H POC Glucose 152 H Lactic Acid Calcium Phosphorus Magnesium Direct Bilirubin ALT Alkaline Phosphatase Troponin T C-Reactive Protein Total Protein Albumin Triglycerides 160 H Cholesterol LDL Cholesterol Direct HDL Cholesterol 31 L Urine WBC (Auto) Urine Creatinine Urine Total Protein Vancomycin Trough Rheumatoid Factor Complement C4 Miscellaneous Test Crossmatch 09/04/16 09/04/16 09/04/16 11:34 17:46 23:29 WBC RBC Hgb Hct MCV MCH MCHC RDW Plt Count Lymph % (Auto) Creek % (Auto) Lymph # [place] # Baso # Seg Neutrophils % Seg Neuts % (Manual) Lymphocytes % (Manual) Monocytes % (Manual) Eosinophils % (Manual) Basophils % (Manual) Nucleated RBC % Seg Neutrophils # Seg Neutrophils # Man Lymphocytes # (Manual) Monocytes # (Manual) Eosinophils # (Manual) PT INR Fibrinogen dRVVT Confirm Interp Factor V Activity POC ABG pH POC ABG pCO2 POC ABG pO2 Sodium Potassium Chloride Carbon Dioxide BUN Creatinine Glucose POC Glucose 165 H 210 H 139 H Lactic Acid Calcium Phosphorus Magnesium Direct Bilirubin ALT Alkaline Phosphatase Troponin T C-Reactive Protein Total Protein Albumin Triglycerides Cholesterol LDL Cholesterol Direct HDL Cholesterol Urine WBC (Auto) Urine Creatinine Urine Total Protein Vancomycin Trough Rheumatoid Factor Complement C4 Miscellaneous Test Crossmatch 09/05/16 09/05/16 09/05/16 04:05 04:05 05:38 WBC RBC Hgb Hct MCV 76 L D MCH 23 L MCHC RDW 17.8 H Plt Count Lymph % (Auto) Creek % (Auto) Lymph # [place] # Baso # Seg Neutrophils % Seg Neuts % (Manual) Lymphocytes % (Manual) Monocytes % (Manual) Eosinophils % (Manual) Basophils % (Manual) Nucleated RBC % Seg Neutrophils # Seg Neutrophils # Man Lymphocytes # (Manual) Monocytes # (Manual) Eosinophils # (Manual) PT INR Fibrinogen dRVVT Confirm Interp Factor V Activity POC ABG pH POC ABG pCO2 POC ABG pO2 Sodium 134 L Potassium Chloride Carbon Dioxide 18 L BUN Creatinine 1.8 H Glucose 192 H POC Glucose 175 H Lactic Acid Calcium Phosphorus Magnesium Direct Bilirubin ALT Alkaline Phosphatase Troponin T C-Reactive Protein Total Protein Albumin Triglycerides Cholesterol LDL Cholesterol Direct HDL Cholesterol Urine WBC (Auto) Urine Creatinine Urine Total Protein Vancomycin Trough Rheumatoid Factor Complement C4 Miscellaneous Test Crossmatch 09/05/16 09/05/16 09/05/16 11:38 17:48 23:22 WBC RBC Hgb Hct MCV MCH MCHC RDW Plt Count Lymph % (Auto) Creek % (Auto) Lymph # [place] # Baso # Seg Neutrophils % Seg Neuts % (Manual) Lymphocytes % (Manual) Monocytes % (Manual) Eosinophils % (Manual) Basophils % (Manual) Nucleated RBC % Seg Neutrophils # Seg Neutrophils # Man Lymphocytes # (Manual) Monocytes # (Manual) Eosinophils # (Manual) PT INR Fibrinogen dRVVT Confirm Interp Factor V Activity POC ABG pH POC ABG pCO2 POC ABG pO2 Sodium Potassium Chloride Carbon Dioxide BUN Creatinine Glucose POC Glucose 164 H 186 H 195 H Lactic Acid Calcium Phosphorus Magnesium Direct Bilirubin ALT Alkaline Phosphatase Troponin T C-Reactive Protein Total Protein Albumin Triglycerides Cholesterol LDL Cholesterol Direct HDL Cholesterol Urine WBC (Auto) Urine Creatinine Urine Total Protein Vancomycin Trough Rheumatoid Factor Complement C4 Miscellaneous Test Crossmatch 09/06/16 09/06/16 09/06/16 04:12 05:59 07:32 WBC RBC Hgb Hct MCV MCH MCHC RDW Plt Count Lymph % (Auto) Creek % (Auto) Lymph # [place] # Baso # Seg Neutrophils % Seg Neuts % (Manual) Lymphocytes % (Manual) Monocytes % (Manual) Eosinophils % (Manual) Basophils % (Manual) Nucleated RBC % Seg Neutrophils # Seg Neutrophils # Man Lymphocytes # (Manual) Monocytes # (Manual) Eosinophils # (Manual) PT INR Fibrinogen dRVVT Confirm Interp Factor V Activity POC ABG pH 7.514 H POC ABG pCO2 29.1 L POC ABG pO2 72 L Sodium 133 L Potassium 3.4 L Chloride 94.9 L Carbon Dioxide 19 L BUN 30 H Creatinine 2.1 H Glucose 139 H POC Glucose 146 H Lactic Acid Calcium Phosphorus Magnesium Direct Bilirubin ALT Alkaline Phosphatase Troponin T C-Reactive Protein Total Protein Albumin Triglycerides Cholesterol LDL Cholesterol Direct HDL Cholesterol Urine WBC (Auto) Urine Creatinine Urine Total Protein Vancomycin Trough Rheumatoid Factor Complement C4 Miscellaneous Test Crossmatch 09/06/16 09/06/16 09/06/16 11:57 17:58 19:02 WBC RBC Hgb Hct MCV MCH MCHC RDW Plt Count Lymph % (Auto) Creek % (Auto) Lymph # [place] # Baso # Seg Neutrophils % Seg Neuts % (Manual) Lymphocytes % (Manual) Monocytes % (Manual) Eosinophils % (Manual) Basophils % (Manual) Nucleated RBC % Seg Neutrophils # Seg Neutrophils # Man Lymphocytes # (Manual) Monocytes # (Manual) Eosinophils # (Manual) PT INR Fibrinogen dRVVT Confirm Interp Factor V Activity POC ABG pH 7.465 H POC ABG pCO2 32.0 L POC ABG pO2 Sodium Potassium Chloride Carbon Dioxide BUN Creatinine Glucose POC Glucose 165 H 160 H Lactic Acid Calcium Phosphorus Magnesium Direct Bilirubin ALT Alkaline Phosphatase Troponin T C-Reactive Protein Total Protein Albumin Triglycerides Cholesterol LDL Cholesterol Direct HDL Cholesterol Urine WBC (Auto) Urine Creatinine Urine Total Protein Vancomycin Trough Rheumatoid Factor Complement C4 Miscellaneous Test Crossmatch 09/06/16 09/07/16 09/07/16 23:45 02:47 02:47 WBC RBC Hgb Hct MCV MCH MCHC RDW Plt Count Lymph % (Auto) Creek % (Auto) Lymph # [place] # Baso # Seg Neutrophils % Seg Neuts % (Manual) Lymphocytes % (Manual) Monocytes % (Manual) Eosinophils % (Manual) Basophils % (Manual) Nucleated RBC % Seg Neutrophils # Seg Neutrophils # Man Lymphocytes # (Manual) Monocytes # (Manual) Eosinophils # (Manual) PT INR Fibrinogen dRVVT Confirm Interp Factor V Activity POC ABG pH POC ABG pCO2 POC ABG pO2 Sodium Potassium Chloride Carbon Dioxide BUN Creatinine Glucose POC Glucose 204 H Lactic Acid Calcium Phosphorus Magnesium Direct Bilirubin ALT Alkaline Phosphatase Troponin T C-Reactive Protein Total Protein Albumin Triglycerides Cholesterol LDL Cholesterol Direct HDL Cholesterol Urine WBC (Auto) 68.0 H Urine Creatinine 106.1 H Urine Total Protein Vancomycin Trough Rheumatoid Factor Complement C4 Miscellaneous Test Crossmatch 09/07/16 09/07/16 09/07/16 04:50 06:19 06:39 WBC RBC Hgb Hct MCV MCH MCHC RDW Plt Count Lymph % (Auto) Creek % (Auto) Lymph # [place] # Baso # Seg Neutrophils % Seg Neuts % (Manual) Lymphocytes % (Manual) Monocytes % (Manual) Eosinophils % (Manual) Basophils % (Manual) Nucleated RBC % Seg Neutrophils # Seg Neutrophils # Man Lymphocytes # (Manual) Monocytes # (Manual) Eosinophils # (Manual) PT INR Fibrinogen dRVVT Confirm Interp Factor V Activity POC ABG pH 7.457 H POC ABG pCO2 32.1 L POC ABG pO2 76 L Sodium 132 L Potassium Chloride 94.7 L Carbon Dioxide BUN 53 H Creatinine 2.9 H Glucose 151 H POC Glucose 149 H Lactic Acid Calcium Phosphorus Magnesium Direct Bilirubin ALT Alkaline Phosphatase Troponin T C-Reactive Protein Total Protein Albumin Triglycerides Cholesterol LDL Cholesterol Direct HDL Cholesterol Urine WBC (Auto) Urine Creatinine Urine Total Protein Vancomycin Trough Rheumatoid Factor Complement C4 Miscellaneous Test Crossmatch 09/07/16 09/07/16 09/07/16 09:20 11:43 11:43 WBC 19.4 H RBC Hgb 8.3 L Hct 26.4 L D MCV 72 L D MCH 22 L MCHC RDW 17.9 H Plt Count Lymph % (Auto) 8.5 L Creek % (Auto) Lymph # [place] # 1.0 H Baso # Seg Neutrophils % 85.8 H Seg Neuts % (Manual) Lymphocytes % (Manual) Monocytes % (Manual) Eosinophils % (Manual) Basophils % (Manual) Nucleated RBC % Seg Neutrophils # 16.6 H Seg Neutrophils # Man Lymphocytes # (Manual) Monocytes # (Manual) Eosinophils # (Manual) PT INR Fibrinogen dRVVT Confirm Interp Factor V Activity POC ABG pH POC ABG pCO2 POC ABG pO2 Sodium 134 L Potassium Chloride 97.2 L Carbon Dioxide 20 L BUN 58 H Creatinine 2.9 H Glucose 147 H POC Glucose Lactic Acid Calcium Phosphorus 2.40 L Magnesium 2.40 H Direct Bilirubin ALT Alkaline Phosphatase Troponin T C-Reactive Protein Total Protein 5.8 L Albumin 2.2 L Triglycerides Cholesterol LDL Cholesterol Direct HDL Cholesterol Urine WBC (Auto) Urine Creatinine Urine Total Protein Vancomycin Trough Rheumatoid Factor Complement C4 58 H Miscellaneous Test Crossmatch 09/07/16 09/07/16 09/07/16 11:50 16:00 17:31 WBC RBC Hgb Hct MCV MCH MCHC RDW Plt Count Lymph % (Auto) Creek % (Auto) Lymph # [place] # Baso # Seg Neutrophils % Seg Neuts % (Manual) Lymphocytes % (Manual) Monocytes % (Manual) Eosinophils % (Manual) Basophils % (Manual) Nucleated RBC % Seg Neutrophils # Seg Neutrophils # Man Lymphocytes # (Manual) Monocytes # (Manual) Eosinophils # (Manual) PT INR Fibrinogen dRVVT Confirm Interp Factor V Activity POC ABG pH POC ABG pCO2 POC ABG pO2 158 H Sodium Potassium Chloride Carbon Dioxide BUN Creatinine Glucose POC Glucose 175 H Lactic Acid Calcium Phosphorus Magnesium Direct Bilirubin ALT Alkaline Phosphatase Troponin T C-Reactive Protein Total Protein Albumin Triglycerides Cholesterol LDL Cholesterol Direct HDL Cholesterol Urine WBC (Auto) Urine Creatinine 66.3 H Urine Total Protein Vancomycin Trough Rheumatoid Factor Complement C4 Miscellaneous Test Crossmatch 09/07/16 09/08/16 09/08/16 23:50 05:46 06:18 WBC 17.8 H RBC 3.58 L Hgb 8.1 L Hct 25.5 L MCV 71 L MCH 23 L MCHC RDW 18.4 H Plt Count Lymph % (Auto) Creek % (Auto) Lymph # [place] # Baso # Seg Neutrophils % Seg Neuts % (Manual) 92.0 H Lymphocytes % (Manual) 6.0 L Monocytes % (Manual) Eosinophils % (Manual) Basophils % (Manual) Nucleated RBC % Seg Neutrophils # Seg Neutrophils # Man 16.4 H Lymphocytes # (Manual) 1.1 L Monocytes # (Manual) Eosinophils # (Manual) PT INR Fibrinogen dRVVT Confirm Interp Factor V Activity POC ABG pH POC ABG pCO2 34.3 L POC ABG pO2 71 L Sodium Potassium Chloride Carbon Dioxide BUN Creatinine Glucose POC Glucose 216 H Lactic Acid Calcium Phosphorus Magnesium Direct Bilirubin ALT Alkaline Phosphatase Troponin T C-Reactive Protein Total Protein Albumin Triglycerides Cholesterol LDL Cholesterol Direct HDL Cholesterol Urine WBC (Auto) Urine Creatinine Urine Total Protein Vancomycin Trough Rheumatoid Factor Complement C4 Miscellaneous Test Crossmatch 09/08/16 09/08/16 09/08/16 06:18 06:51 10:55 WBC RBC Hgb Hct MCV MCH MCHC RDW Plt Count Lymph % (Auto) Creek % (Auto) Lymph # [place] # Baso # Seg Neutrophils % Seg Neuts % (Manual) Lymphocytes % (Manual) Monocytes % (Manual) Eosinophils % (Manual) Basophils % (Manual) Nucleated RBC % Seg Neutrophils # Seg Neutrophils # Man Lymphocytes # (Manual) Monocytes # (Manual) Eosinophils # (Manual) PT INR Fibrinogen dRVVT Confirm Interp Factor V Activity POC ABG pH POC ABG pCO2 POC ABG pO2 Sodium 133 L Potassium Chloride 96.9 L Carbon Dioxide 20 L BUN 63 H Creatinine 2.7 H Glucose 195 H POC Glucose 204 H 169 H Lactic Acid Calcium Phosphorus Magnesium Direct Bilirubin ALT Alkaline Phosphatase Troponin T C-Reactive Protein Total Protein Albumin Triglycerides Cholesterol LDL Cholesterol Direct HDL Cholesterol Urine WBC (Auto) Urine Creatinine Urine Total Protein Vancomycin Trough Rheumatoid Factor Complement C4 Miscellaneous Test Crossmatch 09/08/16 09/08/16 09/08/16 11:48 11:48 11:48 WBC RBC Hgb Hct MCV MCH MCHC RDW Plt Count Lymph % (Auto) Creek % (Auto) Lymph # [place] # Baso # Seg Neutrophils % Seg Neuts % (Manual) Lymphocytes % (Manual) Monocytes % (Manual) Eosinophils % (Manual) Basophils % (Manual) Nucleated RBC % Seg Neutrophils # Seg Neutrophils # Man Lymphocytes # (Manual) Monocytes # (Manual) Eosinophils # (Manual) PT INR Fibrinogen 750 H dRVVT Confirm Interp Factor V Activity POC ABG pH POC ABG pCO2 POC ABG pO2 Sodium Potassium Chloride Carbon Dioxide BUN Creatinine Glucose POC Glucose Lactic Acid Calcium Phosphorus Magnesium Direct Bilirubin ALT Alkaline Phosphatase Troponin T C-Reactive Protein 15.70 H Total Protein Albumin Triglycerides Cholesterol LDL Cholesterol Direct HDL Cholesterol Urine WBC (Auto) Urine Creatinine Urine Total Protein Vancomycin Trough Rheumatoid Factor 24 H Complement C4 Miscellaneous Test Crossmatch 09/08/16 09/08/16 09/09/16 15:35 18:25 00:24 WBC RBC Hgb Hct MCV MCH MCHC RDW Plt Count Lymph % (Auto) Creek % (Auto) Lymph # [place] # Baso # Seg Neutrophils % Seg Neuts % (Manual) Lymphocytes % (Manual) Monocytes % (Manual) Eosinophils % (Manual) Basophils % (Manual) Nucleated RBC % Seg Neutrophils # Seg Neutrophils # Man Lymphocytes # (Manual) Monocytes # (Manual) Eosinophils # (Manual) PT INR Fibrinogen dRVVT Confirm Interp Factor V Activity 182 H POC ABG pH POC ABG pCO2 POC ABG pO2 Sodium Potassium Chloride Carbon Dioxide BUN Creatinine Glucose POC Glucose 184 H 216 H Lactic Acid Calcium Phosphorus Magnesium Direct Bilirubin ALT Alkaline Phosphatase Troponin T C-Reactive Protein Total Protein Albumin Triglycerides Cholesterol LDL Cholesterol Direct HDL Cholesterol Urine WBC (Auto) Urine Creatinine Urine Total Protein Vancomycin Trough Rheumatoid Factor Complement C4 Miscellaneous Test Crossmatch 09/09/16 09/09/16 09/09/16 03:00 03:00 04:04 WBC 27.9 H RBC Hgb 8.7 L Hct 28.1 L MCV 72 L MCH 22 L MCHC RDW 18.4 H Plt Count 485 H Lymph % (Auto) Creek % (Auto) Lymph # [place] # Baso # Seg Neutrophils % Seg Neuts % (Manual) 77.0 H Lymphocytes % (Manual) 9.0 L Monocytes % (Manual) Eosinophils % (Manual) Basophils % (Manual) Nucleated RBC % Seg Neutrophils # Seg Neutrophils # Man 21.5 H Lymphocytes # (Manual) Monocytes # (Manual) 2.0 H Eosinophils # (Manual) PT INR Fibrinogen dRVVT Confirm Interp Factor V Activity POC ABG pH POC ABG pCO2 POC ABG pO2 121 H Sodium 135 L Potassium Chloride 96.3 L Carbon Dioxide 21 L BUN 83 H Creatinine 3.0 H Glucose 135 H POC Glucose Lactic Acid Calcium Phosphorus Magnesium Direct Bilirubin ALT Alkaline Phosphatase Troponin T C-Reactive Protein Total Protein Albumin Triglycerides Cholesterol LDL Cholesterol Direct HDL Cholesterol Urine WBC (Auto) Urine Creatinine Urine Total Protein Vancomycin Trough Rheumatoid Factor Complement C4 Miscellaneous Test Crossmatch 09/09/16 09/09/16 09/09/16 05:41 11:55 14:13 WBC RBC Hgb Hct MCV MCH MCHC RDW Plt Count Lymph % (Auto) [place] % (Auto) Lymph # [place] # Baso # Seg Neutrophils % Seg Neuts % (Manual) Lymphocytes % (Manual) Monocytes % (Manual) Eosinophils % (Manual) Basophils % (Manual) Nucleated RBC % Seg Neutrophils # Seg Neutrophils # Man Lymphocytes # (Manual) Monocytes # (Manual) Eosinophils # (Manual) PT INR Fibrinogen dRVVT Confirm Interp Factor V Activity POC ABG pH POC ABG pCO2 POC ABG pO2 Sodium Potassium Chloride Carbon Dioxide BUN Creatinine Glucose POC Glucose 155 H 186 H Lactic Acid Calcium Phosphorus Magnesium Direct Bilirubin ALT Alkaline Phosphatase Troponin T C-Reactive Protein Total Protein Albumin Triglycerides Cholesterol LDL Cholesterol Direct HDL Cholesterol Urine WBC (Auto) 25.0 H Urine Creatinine Urine Total Protein Vancomycin Trough Rheumatoid Factor Complement C4 Miscellaneous Test Crossmatch 09/09/16 09/09/16 09/10/16 17:33 23:13 05:09 WBC RBC Hgb Hct MCV MCH MCHC RDW Plt Count Lymph % (Auto) Creek % (Auto) Lymph # [place] # Baso # Seg Neutrophils % Seg Neuts % (Manual) Lymphocytes % (Manual) Monocytes % (Manual) Eosinophils % (Manual) Basophils % (Manual) Nucleated RBC % Seg Neutrophils # Seg Neutrophils # Man Lymphocytes # (Manual) Monocytes # (Manual) Eosinophils # (Manual) PT INR Fibrinogen dRVVT Confirm Interp Factor V Activity POC ABG pH POC ABG pCO2 POC ABG pO2 74 L Sodium Potassium Chloride Carbon Dioxide BUN Creatinine Glucose POC Glucose 211 H 215 H Lactic Acid Calcium Phosphorus Magnesium Direct Bilirubin ALT Alkaline Phosphatase Troponin T C-Reactive Protein Total Protein Albumin Triglycerides Cholesterol LDL Cholesterol Direct HDL Cholesterol Urine WBC (Auto) Urine Creatinine Urine Total Protein Vancomycin Trough Rheumatoid Factor Complement C4 Miscellaneous Test Crossmatch 09/10/16 09/10/16 09/10/16 05:17 05:17 11:31 WBC 15.8 H RBC 3.25 L Hgb 7.3 L Hct 22.9 L MCV 71 L MCH 23 L MCHC RDW 18.4 H Plt Count Lymph % (Auto) Creek % (Auto) Lymph # [place] # Baso # Seg Neutrophils % Seg Neuts % (Manual) 91.0 H Lymphocytes % (Manual) 4.0 L Monocytes % (Manual) Eosinophils % (Manual) Basophils % (Manual) Nucleated RBC % Seg Neutrophils # Seg Neutrophils # Man 14.4 H Lymphocytes # (Manual) 0.6 L Monocytes # (Manual) Eosinophils # (Manual) PT INR Fibrinogen dRVVT Confirm Interp Factor V Activity POC ABG pH POC ABG pCO2 POC ABG pO2 Sodium Potassium Chloride Carbon Dioxide 21 L BUN 93 H Creatinine 2.9 H Glucose 146 H POC Glucose 188 H Lactic Acid Calcium 8.1 L Phosphorus Magnesium Direct Bilirubin ALT Alkaline Phosphatase Troponin T C-Reactive Protein Total Protein Albumin Triglycerides Cholesterol LDL Cholesterol Direct HDL Cholesterol Urine WBC (Auto) Urine Creatinine Urine Total Protein Vancomycin Trough Rheumatoid Factor Complement C4 Miscellaneous Test Crossmatch 09/10/16 09/10/16 09/10/16 13:17 17:20 23:32 WBC RBC Hgb Hct MCV MCH MCHC RDW Plt Count Lymph % (Auto) Creek % (Auto) Lymph # [place] # Baso # Seg Neutrophils % Seg Neuts % (Manual) Lymphocytes % (Manual) Monocytes % (Manual) Eosinophils % (Manual) Basophils % (Manual) Nucleated RBC % Seg Neutrophils # Seg Neutrophils # Man Lymphocytes # (Manual) Monocytes # (Manual) Eosinophils # (Manual) PT INR Fibrinogen dRVVT Confirm Interp Factor V Activity POC ABG pH POC ABG pCO2 POC ABG pO2 Sodium Potassium Chloride Carbon Dioxide BUN Creatinine Glucose POC Glucose 199 H 186 H Lactic Acid Calcium Phosphorus Magnesium Direct Bilirubin ALT Alkaline Phosphatase Troponin T C-Reactive Protein Total Protein Albumin Triglycerides Cholesterol LDL Cholesterol Direct HDL Cholesterol Urine WBC (Auto) Urine Creatinine Urine Total Protein Vancomycin Trough Rheumatoid Factor Complement C4 Miscellaneous Test Crossmatch See Detail 09/11/16 09/11/16 09/11/16 05:10 05:10 05:17 WBC 28.4 H RBC Hgb 9.2 L Hct 29.3 L D MCV 73 L MCH 23 L MCHC RDW 18.9 H Plt Count 452 H Lymph % (Auto) Creek % (Auto) Lymph # [place] # Baso # Seg Neutrophils % Seg Neuts % (Manual) 89.5 H Lymphocytes % (Manual) 2.0 L Monocytes % (Manual) Eosinophils % (Manual) Basophils % (Manual) Nucleated RBC % Seg Neutrophils # Seg Neutrophils # Man 25.4 H Lymphocytes # (Manual) 0.6 L Monocytes # (Manual) 1.3 H Eosinophils # (Manual) PT INR Fibrinogen dRVVT Confirm Interp Factor V Activity POC ABG pH POC ABG pCO2 POC ABG pO2 Sodium 136 L Potassium Chloride Carbon Dioxide 18 L BUN 107 H Creatinine 2.6 H Glucose 187 H POC Glucose 230 H Lactic Acid Calcium 8.3 L Phosphorus Magnesium Direct Bilirubin ALT Alkaline Phosphatase Troponin T C-Reactive Protein Total Protein Albumin Triglycerides Cholesterol LDL Cholesterol Direct HDL Cholesterol Urine WBC (Auto) Urine Creatinine Urine Total Protein Vancomycin Trough Rheumatoid Factor Complement C4 Miscellaneous Test Crossmatch 09/11/16 09/11/16 09/11/16 05:55 12:02 17:32 WBC RBC Hgb Hct MCV MCH MCHC RDW Plt Count Lymph % (Auto) [place] % (Auto) Lymph # [place] # Baso # Seg Neutrophils % Seg Neuts % (Manual) Lymphocytes % (Manual) Monocytes % (Manual) Eosinophils % (Manual) Basophils % (Manual) Nucleated RBC % Seg Neutrophils # Seg Neutrophils # Man Lymphocytes # (Manual) Monocytes # (Manual) Eosinophils # (Manual) PT INR Fibrinogen dRVVT Confirm Interp Factor V Activity POC ABG pH POC ABG pCO2 33.8 L POC ABG pO2 Sodium Potassium Chloride Carbon Dioxide BUN Creatinine Glucose POC Glucose 191 H 239 H Lactic Acid Calcium Phosphorus Magnesium Direct Bilirubin ALT Alkaline Phosphatase Troponin T C-Reactive Protein Total Protein Albumin Triglycerides Cholesterol LDL Cholesterol Direct HDL Cholesterol Urine WBC (Auto) Urine Creatinine Urine Total Protein Vancomycin Trough Rheumatoid Factor Complement C4 Miscellaneous Test Crossmatch 09/11/16 09/12/16 09/12/16 23:52 05:09 05:32 WBC RBC Hgb Hct MCV MCH MCHC RDW Plt Count Lymph % (Auto) [place] % (Auto) Lymph # [place] # Baso # Seg Neutrophils % Seg Neuts % (Manual) Lymphocytes % (Manual) Monocytes % (Manual) Eosinophils % (Manual) Basophils % (Manual) Nucleated RBC % Seg Neutrophils # Seg Neutrophils # Man Lymphocytes # (Manual) Monocytes # (Manual) Eosinophils # (Manual) PT INR Fibrinogen dRVVT Confirm Interp Factor V Activity POC ABG pH POC ABG pCO2 34.6 L POC ABG pO2 Sodium Potassium Chloride Carbon Dioxide BUN Creatinine Glucose POC Glucose 265 H 184 H Lactic Acid Calcium Phosphorus Magnesium Direct Bilirubin ALT Alkaline Phosphatase Troponin T C-Reactive Protein Total Protein Albumin Triglycerides Cholesterol LDL Cholesterol Direct HDL Cholesterol Urine WBC (Auto) Urine Creatinine Urine Total Protein Vancomycin Trough Rheumatoid Factor Complement C4 Miscellaneous Test Crossmatch 09/12/16 09/12/16 09/12/16 06:45 06:45 07:22 WBC 31.7 H RBC 3.54 L Hgb 8.3 L Hct 25.9 L MCV 73 L MCH 23 L MCHC RDW 18.9 H Plt Count Lymph % (Auto) [place] % (Auto) Lymph # [place] # Baso # Seg Neutrophils % Seg Neuts % (Manual) 88.5 H Lymphocytes % (Manual) 4.5 L Monocytes % (Manual) Eosinophils % (Manual) Basophils % (Manual) Nucleated RBC % Seg Neutrophils # Seg Neutrophils # Man 28.1 H Lymphocytes # (Manual) Monocytes # (Manual) 1.0 H Eosinophils # (Manual) PT INR Fibrinogen dRVVT Confirm Interp Factor V Activity POC ABG pH POC ABG pCO2 POC ABG pO2 Sodium Potassium Chloride Carbon Dioxide 20 L BUN 115 H Creatinine 2.7 H Glucose 165 H POC Glucose Lactic Acid Calcium 8.0 L Phosphorus Magnesium Direct Bilirubin ALT Alkaline Phosphatase Troponin T C-Reactive Protein Total Protein Albumin Triglycerides 217 H Cholesterol LDL Cholesterol Direct HDL Cholesterol Urine WBC (Auto) Urine Creatinine Urine Total Protein Vancomycin Trough Rheumatoid Factor Complement C4 Miscellaneous Test Crossmatch 09/12/16 09/12/16 09/12/16 07:22 09:59 12:21 WBC RBC Hgb Hct MCV MCH MCHC RDW Plt Count Lymph % (Auto) [place] % (Auto) Lymph # [place] # Baso # Seg Neutrophils % Seg Neuts % (Manual) Lymphocytes % (Manual) Monocytes % (Manual) Eosinophils % (Manual) Basophils % (Manual) Nucleated RBC % Seg Neutrophils # Seg Neutrophils # Man Lymphocytes # (Manual) Monocytes # (Manual) Eosinophils # (Manual) PT INR Fibrinogen dRVVT Confirm Interp Positive H Factor V Activity POC ABG pH POC ABG pCO2 POC ABG pO2 Sodium Potassium Chloride Carbon Dioxide BUN Creatinine Glucose POC Glucose 224 H Lactic Acid Calcium Phosphorus Magnesium Direct Bilirubin ALT Alkaline Phosphatase Troponin T C-Reactive Protein 1.70 H Total Protein Albumin Triglycerides Cholesterol LDL Cholesterol Direct HDL Cholesterol Urine WBC (Auto) Urine Creatinine Urine Total Protein Vancomycin Trough Rheumatoid Factor Complement C4 Miscellaneous Test Crossmatch 09/12/16 09/12/16 09/13/16 16:51 23:28 04:00 WBC 45.0 H* RBC Hgb 9.4 L Hct MCV 75 L MCH 23 L MCHC RDW 19.0 H Plt Count 470 H Lymph % (Auto) [place] % (Auto) Lymph # [place] # Baso # Seg Neutrophils % Seg Neuts % (Manual) 89.0 H Lymphocytes % (Manual) 5.0 L Monocytes % (Manual) Eosinophils % (Manual) Basophils % (Manual) Nucleated RBC % Seg Neutrophils # Seg Neutrophils # Man 40.1 H Lymphocytes # (Manual) Monocytes # (Manual) Eosinophils # (Manual) PT INR Fibrinogen dRVVT Confirm Interp Factor V Activity POC ABG pH POC ABG pCO2 POC ABG pO2 Sodium Potassium Chloride Carbon Dioxide BUN Creatinine Glucose POC Glucose 169 H 150 H Lactic Acid Calcium Phosphorus Magnesium Direct Bilirubin ALT Alkaline Phosphatase Troponin T C-Reactive Protein Total Protein Albumin Triglycerides Cholesterol LDL Cholesterol Direct HDL Cholesterol Urine WBC (Auto) Urine Creatinine Urine Total Protein Vancomycin Trough Rheumatoid Factor Complement C4 Miscellaneous Test Crossmatch 09/13/16 09/13/16 09/13/16 04:00 11:26 17:31 WBC RBC Hgb Hct MCV MCH MCHC RDW Plt Count Lymph % (Auto) [place] % (Auto) Lymph # [place] # Baso # Seg Neutrophils % Seg Neuts % (Manual) Lymphocytes % (Manual) Monocytes % (Manual) Eosinophils % (Manual) Basophils % (Manual) Nucleated RBC % Seg Neutrophils # Seg Neutrophils # Man Lymphocytes # (Manual) Monocytes # (Manual) Eosinophils # (Manual) PT INR Fibrinogen dRVVT Confirm Interp Factor V Activity POC ABG pH POC ABG pCO2 POC ABG pO2 Sodium Potassium Chloride Carbon Dioxide 20 L BUN 116 H Creatinine 3.0 H Glucose 172 H POC Glucose 140 H 183 H Lactic Acid Calcium Phosphorus Magnesium Direct Bilirubin ALT Alkaline Phosphatase Troponin T C-Reactive Protein Total Protein 6.2 L Albumin 2.9 L Triglycerides Cholesterol LDL Cholesterol Direct HDL Cholesterol Urine WBC (Auto) Urine Creatinine Urine Total Protein Vancomycin Trough Rheumatoid Factor Complement C4 Miscellaneous Test Crossmatch 09/13/16 09/14/16 09/14/16 23:23 04:06 04:07 WBC 29.4 H RBC Hgb 8.9 L Hct 27.3 L MCV 75 L MCH 24 L MCHC RDW 19.1 H Plt Count Lymph % (Auto) [place] % (Auto) Lymph # [place] # Baso # Seg Neutrophils % Seg Neuts % (Manual) 84.0 H Lymphocytes % (Manual) 6.0 L Monocytes % (Manual) 9.0 H Eosinophils % (Manual) Basophils % (Manual) Nucleated RBC % Seg Neutrophils # Seg Neutrophils # Man 24.7 H Lymphocytes # (Manual) Monocytes # (Manual) 2.6 H Eosinophils # (Manual) PT INR Fibrinogen dRVVT Confirm Interp Factor V Activity POC ABG pH 7.342 L POC ABG pCO2 POC ABG pO2 116 H Sodium Potassium Chloride Carbon Dioxide BUN Creatinine Glucose POC Glucose 154 H Lactic Acid Calcium Phosphorus Magnesium Direct Bilirubin ALT Alkaline Phosphatase Troponin T C-Reactive Protein Total Protein Albumin Triglycerides Cholesterol LDL Cholesterol Direct HDL Cholesterol Urine WBC (Auto) Urine Creatinine Urine Total Protein Vancomycin Trough Rheumatoid Factor Complement C4 Miscellaneous Test Crossmatch 09/14/16 09/14/16 09/14/16 04:07 05:29 12:19 WBC RBC Hgb Hct MCV MCH MCHC RDW Plt Count Lymph % (Auto) [place] % (Auto) Lymph # [place] # Baso # Seg Neutrophils % Seg Neuts % (Manual) Lymphocytes % (Manual) Monocytes % (Manual) Eosinophils % (Manual) Basophils % (Manual) Nucleated RBC % Seg Neutrophils # Seg Neutrophils # Man Lymphocytes # (Manual) Monocytes # (Manual) Eosinophils # (Manual) PT INR Fibrinogen dRVVT Confirm Interp Factor V Activity POC ABG pH POC ABG pCO2 POC ABG pO2 Sodium 136 L Potassium Chloride Carbon Dioxide 18 L BUN 121 H Creatinine 2.8 H Glucose 214 H POC Glucose 239 H 181 H Lactic Acid Calcium Phosphorus Magnesium Direct Bilirubin ALT Alkaline Phosphatase Troponin T C-Reactive Protein Total Protein Albumin Triglycerides Cholesterol LDL Cholesterol Direct HDL Cholesterol Urine WBC (Auto) Urine Creatinine Urine Total Protein Vancomycin Trough Rheumatoid Factor Complement C4 Miscellaneous Test Crossmatch 09/14/16 09/14/16 09/15/16 18:12 23:37 05:00 WBC 26.1 H RBC 3.05 L Hgb 7.2 L Hct 22.9 L MCV 75 L MCH 24 L MCHC RDW 19.0 H Plt Count Lymph % (Auto) [place] % (Auto) Lymph # [place] # Baso # Seg Neutrophils % Seg Neuts % (Manual) Lymphocytes % (Manual) Monocytes % (Manual) Eosinophils % (Manual) Basophils % (Manual) Nucleated RBC % Seg Neutrophils # Seg Neutrophils # Man Lymphocytes # (Manual) Monocytes # (Manual) Eosinophils # (Manual) PT INR Fibrinogen dRVVT Confirm Interp Factor V Activity POC ABG pH POC ABG pCO2 POC ABG pO2 Sodium Potassium Chloride Carbon Dioxide BUN Creatinine Glucose POC Glucose 266 H 154 H Lactic Acid Calcium Phosphorus Magnesium Direct Bilirubin ALT Alkaline Phosphatase Troponin T C-Reactive Protein Total Protein Albumin Triglycerides Cholesterol LDL Cholesterol Direct HDL Cholesterol Urine WBC (Auto) Urine Creatinine Urine Total Protein Vancomycin Trough Rheumatoid Factor Complement C4 Miscellaneous Test Crossmatch 09/15/16 09/15/16 09/15/16 05:00 05:17 12:45 WBC RBC Hgb Hct MCV MCH MCHC RDW Plt Count Lymph % (Auto) [place] % (Auto) Lymph # [place] # Baso # Seg Neutrophils % Seg Neuts % (Manual) Lymphocytes % (Manual) Monocytes % (Manual) Eosinophils % (Manual) Basophils % (Manual) Nucleated RBC % Seg Neutrophils # Seg Neutrophils # Man Lymphocytes # (Manual) Monocytes # (Manual) Eosinophils # (Manual) PT INR Fibrinogen dRVVT Confirm Interp Factor V Activity POC ABG pH POC ABG pCO2 POC ABG pO2 Sodium Potassium 5.2 H Chloride Carbon Dioxide 18 L BUN 139 H Creatinine 3.7 H Glucose 227 H POC Glucose 226 H 244 H Lactic Acid Calcium 8.3 L Phosphorus Magnesium Direct Bilirubin ALT Alkaline Phosphatase Troponin T C-Reactive Protein Total Protein Albumin Triglycerides Cholesterol LDL Cholesterol Direct HDL Cholesterol Urine WBC (Auto) Urine Creatinine Urine Total Protein Vancomycin Trough Rheumatoid Factor Complement C4 Miscellaneous Test Crossmatch 09/15/16 09/15/16 09/15/16 14:32 17:33 23:35 WBC RBC Hgb Hct MCV MCH MCHC RDW Plt Count Lymph % (Auto) [place] % (Auto) Lymph # [place] # Baso # Seg Neutrophils % Seg Neuts % (Manual) Lymphocytes % (Manual) Monocytes % (Manual) Eosinophils % (Manual) Basophils % (Manual) Nucleated RBC % Seg Neutrophils # Seg Neutrophils # Man Lymphocytes # (Manual) Monocytes # (Manual) Eosinophils # (Manual) PT INR Fibrinogen dRVVT Confirm Interp Factor V Activity POC ABG pH POC ABG pCO2 27.7 L POC ABG pO2 120 H Sodium Potassium Chloride Carbon Dioxide BUN Creatinine Glucose POC Glucose 232 H 167 H Lactic Acid Calcium Phosphorus Magnesium Direct Bilirubin ALT Alkaline Phosphatase Troponin T C-Reactive Protein Total Protein Albumin Triglycerides Cholesterol LDL Cholesterol Direct HDL Cholesterol Urine WBC (Auto) Urine Creatinine Urine Total Protein Vancomycin Trough Rheumatoid Factor Complement C4 Miscellaneous Test Crossmatch 09/16/16 09/16/16 09/16/16 03:58 10:27 10:27 WBC 19.0 H RBC 2.77 L Hgb 6.5 L Hct 20.9 L MCV 76 L MCH 23 L MCHC RDW 19.3 H Plt Count Lymph % (Auto) 11.0 L [place] % (Auto) Lymph # [place] # 1.1 H Baso # Seg Neutrophils % 82.5 H Seg Neuts % (Manual) Lymphocytes % (Manual) Monocytes % (Manual) Eosinophils % (Manual) Basophils % (Manual) Nucleated RBC % Seg Neutrophils # 15.7 H Seg Neutrophils # Man Lymphocytes # (Manual) Monocytes # (Manual) Eosinophils # (Manual) PT INR Fibrinogen dRVVT Confirm Interp Factor V Activity POC ABG pH POC ABG pCO2 POC ABG pO2 Sodium Potassium Chloride 109.3 H Carbon Dioxide 18 L BUN 139 H Creatinine 4.1 H Glucose 144 H POC Glucose 146 H Lactic Acid Calcium 8.1 L Phosphorus Magnesium Direct Bilirubin ALT Alkaline Phosphatase Troponin T C-Reactive Protein Total Protein Albumin Triglycerides Cholesterol LDL Cholesterol Direct HDL Cholesterol Urine WBC (Auto) Urine Creatinine Urine Total Protein Vancomycin Trough Rheumatoid Factor Complement C4 Miscellaneous Test Crossmatch 09/16/16 09/16/16 09/16/16 12:04 12:10 13:55 WBC RBC Hgb Hct MCV MCH MCHC RDW Plt Count Lymph % (Auto) [place] % (Auto) Lymph # [place] # Baso # Seg Neutrophils % Seg Neuts % (Manual) Lymphocytes % (Manual) Monocytes % (Manual) Eosinophils % (Manual) Basophils % (Manual) Nucleated RBC % Seg Neutrophils # Seg Neutrophils # Man Lymphocytes # (Manual) Monocytes # (Manual) Eosinophils # (Manual) PT INR Fibrinogen dRVVT Confirm Interp Factor V Activity POC ABG pH POC ABG pCO2 32.9 L POC ABG pO2 Sodium Potassium Chloride Carbon Dioxide BUN Creatinine Glucose POC Glucose 185 H Lactic Acid Calcium Phosphorus Magnesium Direct Bilirubin ALT Alkaline Phosphatase Troponin T C-Reactive Protein Total Protein Albumin Triglycerides Cholesterol LDL Cholesterol Direct HDL Cholesterol Urine WBC (Auto) Urine Creatinine Urine Total Protein Vancomycin Trough Rheumatoid Factor Complement C4 Miscellaneous Test Crossmatch See Detail 09/16/16 09/16/16 09/16/16 17:55 19:19 23:48 WBC RBC Hgb Hct MCV MCH MCHC RDW Plt Count Lymph % (Auto) [place] % (Auto) Lymph # [place] # Baso # Seg Neutrophils % Seg Neuts % (Manual) Lymphocytes % (Manual) Monocytes % (Manual) Eosinophils % (Manual) Basophils % (Manual) Nucleated RBC % Seg Neutrophils # Seg Neutrophils # Man Lymphocytes # (Manual) Monocytes # (Manual) Eosinophils # (Manual) PT INR Fibrinogen dRVVT Confirm Interp Factor V Activity POC ABG pH POC ABG pCO2 POC ABG pO2 Sodium Potassium Chloride Carbon Dioxide BUN Creatinine Glucose POC Glucose 222 H 107 H Lactic Acid Calcium Phosphorus Magnesium Direct Bilirubin ALT Alkaline Phosphatase Troponin T C-Reactive Protein Total Protein Albumin Triglycerides Cholesterol LDL Cholesterol Direct HDL Cholesterol Urine WBC (Auto) Urine Creatinine 47.4 H Urine Total Protein 16 H Vancomycin Trough Rheumatoid Factor Complement C4 Miscellaneous Test Crossmatch 09/17/16 09/17/16 09/17/16 03:45 03:45 04:55 WBC 19.6 H RBC 3.41 L Hgb 8.5 L Hct 26.7 L MCV 78 L MCH 25 L MCHC RDW 19.9 H Plt Count Lymph % (Auto) 9.3 L [place] % (Auto) Lymph # [place] # 1.2 H Baso # Seg Neutrophils % 83.9 H Seg Neuts % (Manual) Lymphocytes % (Manual) Monocytes % (Manual) Eosinophils % (Manual) Basophils % (Manual) Nucleated RBC % Seg Neutrophils # 16.4 H Seg Neutrophils # Man Lymphocytes # (Manual) Monocytes # (Manual) Eosinophils # (Manual) PT INR Fibrinogen dRVVT Confirm Interp Factor V Activity POC ABG pH POC ABG pCO2 POC ABG pO2 Sodium 146 H Potassium 5.1 H Chloride 110.9 H Carbon Dioxide 16 L BUN 146 H Creatinine 4.0 H Glucose 108 H POC Glucose 133 H Lactic Acid Calcium Phosphorus Magnesium 3.00 H Direct Bilirubin ALT Alkaline Phosphatase Troponin T C-Reactive Protein Total Protein Albumin Triglycerides Cholesterol LDL Cholesterol Direct HDL Cholesterol Urine WBC (Auto) Urine Creatinine Urine Total Protein Vancomycin Trough Rheumatoid Factor Complement C4 Miscellaneous Test Crossmatch 09/17/16 09/17/16 09/17/16 11:15 17:33 23:47 WBC RBC Hgb Hct MCV MCH MCHC RDW Plt Count Lymph % (Auto) [place] % (Auto) Lymph # [place] # Baso # Seg Neutrophils % Seg Neuts % (Manual) Lymphocytes % (Manual) Monocytes % (Manual) Eosinophils % (Manual) Basophils % (Manual) Nucleated RBC % Seg Neutrophils # Seg Neutrophils # Man Lymphocytes # (Manual) Monocytes # (Manual) Eosinophils # (Manual) PT INR Fibrinogen dRVVT Confirm Interp Factor V Activity POC ABG pH POC ABG pCO2 POC ABG pO2 Sodium Potassium Chloride Carbon Dioxide BUN Creatinine Glucose POC Glucose 176 H 246 H 148 H Lactic Acid Calcium Phosphorus Magnesium Direct Bilirubin ALT Alkaline Phosphatase Troponin T C-Reactive Protein Total Protein Albumin Triglycerides Cholesterol LDL Cholesterol Direct HDL Cholesterol Urine WBC (Auto) Urine Creatinine Urine Total Protein Vancomycin Trough Rheumatoid Factor Complement C4 Miscellaneous Test Crossmatch 09/18/16 09/18/16 09/18/16 05:33 08:31 08:31 WBC 18.0 H RBC 3.17 L Hgb 9.0 L Hct 25.7 L MCV MCH MCHC 35 H RDW 20.4 H Plt Count Lymph % (Auto) [place] % (Auto) Lymph # [place] # Baso # Seg Neutrophils % Seg Neuts % (Manual) Lymphocytes % (Manual) Monocytes % (Manual) Eosinophils % (Manual) Basophils % (Manual) Nucleated RBC % Seg Neutrophils # Seg Neutrophils # Man Lymphocytes # (Manual) Monocytes # (Manual) Eosinophils # (Manual) PT INR Fibrinogen dRVVT Confirm Interp Factor V Activity POC ABG pH POC ABG pCO2 POC ABG pO2 Sodium Potassium Chloride Carbon Dioxide 15 L BUN 124 H Creatinine 3.8 H Glucose POC Glucose 120 H Lactic Acid Calcium 8.1 L Phosphorus Magnesium Direct Bilirubin ALT Alkaline Phosphatase Troponin T C-Reactive Protein Total Protein Albumin Triglycerides Cholesterol LDL Cholesterol Direct HDL Cholesterol Urine WBC (Auto) Urine Creatinine Urine Total Protein Vancomycin Trough Rheumatoid Factor Complement C4 Miscellaneous Test Crossmatch 09/18/16 09/18/16 09/18/16 12:03 15:34 17:50 WBC RBC Hgb Hct MCV MCH MCHC RDW Plt Count Lymph % (Auto) [place] % (Auto) Lymph # [place] # Baso # Seg Neutrophils % Seg Neuts % (Manual) Lymphocytes % (Manual) Monocytes % (Manual) Eosinophils % (Manual) Basophils % (Manual) Nucleated RBC % Seg Neutrophils # Seg Neutrophils # Man Lymphocytes # (Manual) Monocytes # (Manual) Eosinophils # (Manual) PT INR Fibrinogen dRVVT Confirm Interp Factor V Activity POC ABG pH POC ABG pCO2 25.7 L POC ABG pO2 66 L Sodium Potassium Chloride Carbon Dioxide BUN Creatinine Glucose POC Glucose 156 H 220 H Lactic Acid Calcium Phosphorus Magnesium Direct Bilirubin ALT Alkaline Phosphatase Troponin T C-Reactive Protein Total Protein Albumin Triglycerides Cholesterol LDL Cholesterol Direct HDL Cholesterol Urine WBC (Auto) Urine Creatinine Urine Total Protein Vancomycin Trough Rheumatoid Factor Complement C4 Miscellaneous Test Crossmatch 09/19/16 09/19/16 09/19/16 06:21 09:50 09:50 WBC 17.1 H RBC 3.49 L Hgb 9.0 L Hct 28.1 L MCV MCH 26 L MCHC RDW 20.8 H Plt Count Lymph % (Auto) 11.5 L [place] % (Auto) 7.5 H Lymph # [place] # 1.3 H Baso # Seg Neutrophils % 79.8 H Seg Neuts % (Manual) Lymphocytes % (Manual) Monocytes % (Manual) Eosinophils % (Manual) Basophils % (Manual) Nucleated RBC % Seg Neutrophils # 13.7 H Seg Neutrophils # Man Lymphocytes # (Manual) Monocytes # (Manual) Eosinophils # (Manual) PT INR Fibrinogen dRVVT Confirm Interp Factor V Activity POC ABG pH POC ABG pCO2 POC ABG pO2 Sodium Potassium Chloride 108.6 H Carbon Dioxide 15 L BUN 125 H Creatinine 4.1 H Glucose 124 H POC Glucose 119 H Lactic Acid Calcium Phosphorus Magnesium Direct Bilirubin ALT Alkaline Phosphatase Troponin T C-Reactive Protein Total Protein Albumin Triglycerides Cholesterol LDL Cholesterol Direct HDL Cholesterol Urine WBC (Auto) Urine Creatinine Urine Total Protein Vancomycin Trough Rheumatoid Factor Complement C4 Miscellaneous Test Crossmatch 09/19/16 09/19/16 09/19/16 11:25 17:53 23:36 WBC RBC Hgb Hct MCV MCH MCHC RDW Plt Count Lymph % (Auto) [place] % (Auto) Lymph # [place] # Baso # Seg Neutrophils % Seg Neuts % (Manual) Lymphocytes % (Manual) Monocytes % (Manual) Eosinophils % (Manual) Basophils % (Manual) Nucleated RBC % Seg Neutrophils # Seg Neutrophils # Man Lymphocytes # (Manual) Monocytes # (Manual) Eosinophils # (Manual) PT INR Fibrinogen dRVVT Confirm Interp Factor V Activity POC ABG pH POC ABG pCO2 POC ABG pO2 Sodium Potassium Chloride Carbon Dioxide BUN Creatinine Glucose POC Glucose 160 H 245 H 121 H Lactic Acid Calcium Phosphorus Magnesium Direct Bilirubin ALT Alkaline Phosphatase Troponin T C-Reactive Protein Total Protein Albumin Triglycerides Cholesterol LDL Cholesterol Direct HDL Cholesterol Urine WBC (Auto) Urine Creatinine Urine Total Protein Vancomycin Trough Rheumatoid Factor Complement C4 Miscellaneous Test Crossmatch 09/20/16 09/20/16 09/20/16 04:10 04:10 04:10 WBC 17.0 H RBC 3.21 L Hgb 8.2 L Hct 25.5 L MCV MCH 26 L MCHC RDW 20.9 H Plt Count Lymph % (Auto) [place] % (Auto) Lymph # [place] # Baso # Seg Neutrophils % Seg Neuts % (Manual) Lymphocytes % (Manual) Monocytes % (Manual) Eosinophils % (Manual) Basophils % (Manual) Nucleated RBC % Seg Neutrophils # Seg Neutrophils # Man Lymphocytes # (Manual) Monocytes # (Manual) Eosinophils # (Manual) PT INR Fibrinogen dRVVT Confirm Interp Factor V Activity POC ABG pH POC ABG pCO2 POC ABG pO2 Sodium Potassium Chloride 111.0 H Carbon Dioxide 16 L BUN 129 H Creatinine 3.7 H Glucose 115 H POC Glucose Lactic Acid Calcium 8.2 L Phosphorus Magnesium Direct Bilirubin ALT Alkaline Phosphatase Troponin T C-Reactive Protein Total Protein Albumin Triglycerides 243 H Cholesterol LDL Cholesterol Direct HDL Cholesterol Urine WBC (Auto) Urine Creatinine Urine Total Protein Vancomycin Trough Rheumatoid Factor Complement C4 Miscellaneous Test Crossmatch 09/20/16 09/20/16 09/20/16 05:40 11:52 16:50 WBC RBC Hgb Hct MCV MCH MCHC RDW Plt Count Lymph % (Auto) [place] % (Auto) Lymph # [place] # Baso # Seg Neutrophils % Seg Neuts % (Manual) Lymphocytes % (Manual) Monocytes % (Manual) Eosinophils % (Manual) Basophils % (Manual) Nucleated RBC % Seg Neutrophils # Seg Neutrophils # Man Lymphocytes # (Manual) Monocytes # (Manual) Eosinophils # (Manual) PT INR Fibrinogen dRVVT Confirm Interp Factor V Activity POC ABG pH POC ABG pCO2 POC ABG pO2 Sodium Potassium Chloride Carbon Dioxide BUN Creatinine Glucose POC Glucose 131 H 183 H 236 H Lactic Acid Calcium Phosphorus Magnesium Direct Bilirubin ALT Alkaline Phosphatase Troponin T C-Reactive Protein Total Protein Albumin Triglycerides Cholesterol LDL Cholesterol Direct HDL Cholesterol Urine WBC (Auto) Urine Creatinine Urine Total Protein Vancomycin Trough Rheumatoid Factor Complement C4 Miscellaneous Test Crossmatch 09/20/16 09/21/16 09/21/16 23:51 03:30 04:44 WBC RBC Hgb Hct MCV MCH MCHC RDW Plt Count Lymph % (Auto) [place] % (Auto) Lymph # [place] # Baso # Seg Neutrophils % Seg Neuts % (Manual) Lymphocytes % (Manual) Monocytes % (Manual) Eosinophils % (Manual) Basophils % (Manual) Nucleated RBC % Seg Neutrophils # Seg Neutrophils # Man Lymphocytes # (Manual) Monocytes # (Manual) Eosinophils # (Manual) PT INR Fibrinogen dRVVT Confirm Interp Factor V Activity POC ABG pH POC ABG pCO2 POC ABG pO2 Sodium Potassium Chloride Carbon Dioxide BUN Creatinine Glucose POC Glucose 114 H 141 H Lactic Acid Calcium Phosphorus Magnesium 2.70 H Direct Bilirubin ALT Alkaline Phosphatase Troponin T C-Reactive Protein Total Protein Albumin Triglycerides Cholesterol LDL Cholesterol Direct HDL Cholesterol Urine WBC (Auto) Urine Creatinine Urine Total Protein Vancomycin Trough Rheumatoid Factor Complement C4 Miscellaneous Test Crossmatch 09/21/16 09/21/16 09/21/16 07:45 07:45 10:01 WBC 13.8 H RBC 2.94 L Hgb 7.5 L Hct 23.5 L MCV MCH 26 L MCHC RDW 21.2 H Plt Count Lymph % (Auto) 6.9 L [place] % (Auto) 9.4 H Lymph # 0.9 L [place] # 1.3 H Baso # Seg Neutrophils % 83.2 H Seg Neuts % (Manual) Lymphocytes % (Manual) Monocytes % (Manual) Eosinophils % (Manual) Basophils % (Manual) Nucleated RBC % Seg Neutrophils # 11.5 H Seg Neutrophils # Man Lymphocytes # (Manual) Monocytes # (Manual) Eosinophils # (Manual) PT INR Fibrinogen dRVVT Confirm Interp Factor V Activity POC ABG pH 7.308 L POC ABG pCO2 31.9 L POC ABG pO2 148 H Sodium 147 H Potassium Chloride 114.2 H Carbon Dioxide 15 L BUN 120 H Creatinine 3.9 H Glucose 156 H POC Glucose Lactic Acid Calcium 8.2 L Phosphorus Magnesium Direct Bilirubin ALT Alkaline Phosphatase Troponin T C-Reactive Protein Total Protein Albumin Triglycerides Cholesterol LDL Cholesterol Direct HDL Cholesterol Urine WBC (Auto) Urine Creatinine Urine Total Protein Vancomycin Trough Rheumatoid Factor Complement C4 Miscellaneous Test Crossmatch 09/21/16 09/21/16 09/21/16 12:00 12:03 13:00 WBC RBC Hgb Hct MCV MCH MCHC RDW Plt Count Lymph % (Auto) [place] % (Auto) Lymph # [place] # Baso # Seg Neutrophils % Seg Neuts % (Manual) Lymphocytes % (Manual) Monocytes % (Manual) Eosinophils % (Manual) Basophils % (Manual) Nucleated RBC % Seg Neutrophils # Seg Neutrophils # Man Lymphocytes # (Manual) Monocytes # (Manual) Eosinophils # (Manual) PT INR Fibrinogen dRVVT Confirm Interp Factor V Activity POC ABG pH POC ABG pCO2 POC ABG pO2 Sodium Potassium Chloride Carbon Dioxide BUN Creatinine Glucose POC Glucose 163 H Lactic Acid Calcium Phosphorus Magnesium Direct Bilirubin ALT Alkaline Phosphatase Troponin T C-Reactive Protein Total Protein Albumin Triglycerides Cholesterol LDL Cholesterol Direct HDL Cholesterol Urine WBC (Auto) Urine Creatinine 54.8 H Urine Total Protein Vancomycin Trough 2.3 L Rheumatoid Factor Complement C4 Miscellaneous Test Crossmatch 09/21/16 09/21/16 09/22/16 16:51 23:17 06:27 WBC RBC Hgb Hct MCV MCH MCHC RDW Plt Count Lymph % (Auto) [place] % (Auto) Lymph # [place] # Baso # Seg Neutrophils % Seg Neuts % (Manual) Lymphocytes % (Manual) Monocytes % (Manual) Eosinophils % (Manual) Basophils % (Manual) Nucleated RBC % Seg Neutrophils # Seg Neutrophils # Man Lymphocytes # (Manual) Monocytes # (Manual) Eosinophils # (Manual) PT INR Fibrinogen dRVVT Confirm Interp Factor V Activity POC ABG pH POC ABG pCO2 POC ABG pO2 Sodium Potassium Chloride Carbon Dioxide BUN Creatinine Glucose POC Glucose 206 H 114 H 115 H Lactic Acid Calcium Phosphorus Magnesium Direct Bilirubin ALT Alkaline Phosphatase Troponin T C-Reactive Protein Total Protein Albumin Triglycerides Cholesterol LDL Cholesterol Direct HDL Cholesterol Urine WBC (Auto) Urine Creatinine Urine Total Protein Vancomycin Trough Rheumatoid Factor Complement C4 Miscellaneous Test Crossmatch 09/22/16 09/22/16 09/22/16 07:50 07:50 12:00 WBC 17.8 H RBC 3.04 L Hgb 8.0 L Hct 24.7 L MCV MCH 26 L MCHC RDW 21.6 H Plt Count Lymph % (Auto) [place] % (Auto) Lymph # [place] # Baso # Seg Neutrophils % Seg Neuts % (Manual) Lymphocytes % (Manual) Monocytes % (Manual) Eosinophils % (Manual) Basophils % (Manual) Nucleated RBC % Seg Neutrophils # Seg Neutrophils # Man Lymphocytes # (Manual) Monocytes # (Manual) Eosinophils # (Manual) PT INR Fibrinogen dRVVT Confirm Interp Factor V Activity POC ABG pH POC ABG pCO2 POC ABG pO2 Sodium 150 H Potassium Chloride 118.2 H Carbon Dioxide 14 L BUN 111 H Creatinine 3.7 H Glucose 157 H POC Glucose 183 H Lactic Acid Calcium Phosphorus Magnesium Direct Bilirubin ALT Alkaline Phosphatase Troponin T C-Reactive Protein Total Protein Albumin Triglycerides Cholesterol LDL Cholesterol Direct HDL Cholesterol Urine WBC (Auto) Urine Creatinine Urine Total Protein Vancomycin Trough Rheumatoid Factor Complement C4 Miscellaneous Test Crossmatch 09/22/16 09/22/16 09/23/16 17:29 23:10 05:00 WBC 19.2 H RBC 3.13 L Hgb 8.0 L Hct 25.2 L MCV MCH 26 L MCHC RDW 22.1 H Plt Count Lymph % (Auto) [place] % (Auto) Lymph # [place] # Baso # Seg Neutrophils % Seg Neuts % (Manual) 92.0 H Lymphocytes % (Manual) 3.0 L Monocytes % (Manual) Eosinophils % (Manual) Basophils % (Manual) Nucleated RBC % Seg Neutrophils # Seg Neutrophils # Man 17.7 H Lymphocytes # (Manual) 0.6 L Monocytes # (Manual) Eosinophils # (Manual) PT INR Fibrinogen dRVVT Confirm Interp Factor V Activity POC ABG pH POC ABG pCO2 POC ABG pO2 Sodium Potassium Chloride Carbon Dioxide BUN Creatinine Glucose POC Glucose 197 H 169 H Lactic Acid Calcium Phosphorus Magnesium Direct Bilirubin ALT Alkaline Phosphatase Troponin T C-Reactive Protein Total Protein Albumin Triglycerides Cholesterol LDL Cholesterol Direct HDL Cholesterol Urine WBC (Auto) Urine Creatinine Urine Total Protein Vancomycin Trough Rheumatoid Factor Complement C4 Miscellaneous Test Crossmatch 09/23/16 09/23/16 09/23/16 05:00 05:00 05:10 WBC RBC Hgb Hct MCV MCH MCHC RDW Plt Count Lymph % (Auto) [place] % (Auto) Lymph # [place] # Baso # Seg Neutrophils % Seg Neuts % (Manual) Lymphocytes % (Manual) Monocytes % (Manual) Eosinophils % (Manual) Basophils % (Manual) Nucleated RBC % Seg Neutrophils # Seg Neutrophils # Man Lymphocytes # (Manual) Monocytes # (Manual) Eosinophils # (Manual) PT INR Fibrinogen dRVVT Confirm Interp Factor V Activity POC ABG pH POC ABG pCO2 POC ABG pO2 Sodium 147 H Potassium 3.2 L Chloride 115.7 H Carbon Dioxide 13 L BUN 111 H Creatinine 3.8 H Glucose 194 H POC Glucose 188 H Lactic Acid Calcium 7.3 L D Phosphorus Magnesium Direct Bilirubin ALT Alkaline Phosphatase Troponin T C-Reactive Protein 3.20 H Total Protein Albumin Triglycerides Cholesterol LDL Cholesterol Direct HDL Cholesterol Urine WBC (Auto) Urine Creatinine Urine Total Protein Vancomycin Trough Rheumatoid Factor Complement C4 Miscellaneous Test Crossmatch 09/23/16 09/23/16 09/23/16 11:37 12:29 18:01 WBC RBC Hgb Hct MCV MCH MCHC RDW Plt Count Lymph % (Auto) [place] % (Auto) Lymph # [place] # Baso # Seg Neutrophils % Seg Neuts % (Manual) Lymphocytes % (Manual) Monocytes % (Manual) Eosinophils % (Manual) Basophils % (Manual) Nucleated RBC % Seg Neutrophils # Seg Neutrophils # Man Lymphocytes # (Manual) Monocytes # (Manual) Eosinophils # (Manual) PT INR Fibrinogen dRVVT Confirm Interp Factor V Activity POC ABG pH POC ABG pCO2 18.9 L POC ABG pO2 143 H Sodium Potassium Chloride Carbon Dioxide BUN Creatinine Glucose POC Glucose 153 H 108 H Lactic Acid Calcium Phosphorus Magnesium Direct Bilirubin ALT Alkaline Phosphatase Troponin T C-Reactive Protein Total Protein Albumin Triglycerides Cholesterol LDL Cholesterol Direct HDL Cholesterol Urine WBC (Auto) Urine Creatinine Urine Total Protein Vancomycin Trough Rheumatoid Factor Complement C4 Miscellaneous Test Crossmatch 09/23/16 09/23/16 09/24/16 21:19 23:43 05:16 WBC RBC Hgb Hct MCV MCH MCHC RDW Plt Count Lymph % (Auto) [place] % (Auto) Lymph # [place] # Baso # Seg Neutrophils % Seg Neuts % (Manual) Lymphocytes % (Manual) Monocytes % (Manual) Eosinophils % (Manual) Basophils % (Manual) Nucleated RBC % Seg Neutrophils # Seg Neutrophils # Man Lymphocytes # (Manual) Monocytes # (Manual) Eosinophils # (Manual) PT INR Fibrinogen dRVVT Confirm Interp Factor V Activity POC ABG pH POC ABG pCO2 17.3 L POC ABG pO2 112 H Sodium Potassium Chloride Carbon Dioxide BUN Creatinine Glucose POC Glucose 143 H 164 H Lactic Acid Calcium Phosphorus Magnesium Direct Bilirubin ALT Alkaline Phosphatase Troponin T C-Reactive Protein Total Protein Albumin Triglycerides Cholesterol LDL Cholesterol Direct HDL Cholesterol Urine WBC (Auto) Urine Creatinine Urine Total Protein Vancomycin Trough Rheumatoid Factor Complement C4 Miscellaneous Test Crossmatch 09/24/16 09/24/16 09/24/16 05:21 11:58 17:06 WBC RBC Hgb Hct MCV MCH MCHC RDW Plt Count Lymph % (Auto) [place] % (Auto) Lymph # [place] # Baso # Seg Neutrophils % Seg Neuts % (Manual) Lymphocytes % (Manual) Monocytes % (Manual) Eosinophils % (Manual) Basophils % (Manual) Nucleated RBC % Seg Neutrophils # Seg Neutrophils # Man Lymphocytes # (Manual) Monocytes # (Manual) Eosinophils # (Manual) PT INR Fibrinogen dRVVT Confirm Interp Factor V Activity POC ABG pH POC ABG pCO2 POC ABG pO2 Sodium Potassium Chloride Carbon Dioxide 10 L BUN 103 H Creatinine 4.3 H Glucose 163 H POC Glucose 173 H 167 H Lactic Acid Calcium 6.5 L Phosphorus Magnesium Direct Bilirubin ALT Alkaline Phosphatase Troponin T C-Reactive Protein Total Protein Albumin Triglycerides Cholesterol LDL Cholesterol Direct HDL Cholesterol Urine WBC (Auto) Urine Creatinine Urine Total Protein Vancomycin Trough Rheumatoid Factor Complement C4 Miscellaneous Test Crossmatch 09/24/16 09/24/16 09/24/16 20:15 21:02 23:48 WBC RBC Hgb Hct MCV MCH MCHC RDW Plt Count Lymph % (Auto) [place] % (Auto) Lymph # [place] # Baso # Seg Neutrophils % Seg Neuts % (Manual) Lymphocytes % (Manual) Monocytes % (Manual) Eosinophils % (Manual) Basophils % (Manual) Nucleated RBC % Seg Neutrophils # Seg Neutrophils # Man Lymphocytes # (Manual) Monocytes # (Manual) Eosinophils # (Manual) PT INR Fibrinogen dRVVT Confirm Interp Factor V Activity POC ABG pH 7.288 L POC ABG pCO2 30.2 L 21.5 L POC ABG pO2 32 L 39 L Sodium Potassium Chloride Carbon Dioxide BUN Creatinine Glucose POC Glucose 109 H Lactic Acid Calcium Phosphorus Magnesium Direct Bilirubin ALT Alkaline Phosphatase Troponin T C-Reactive Protein Total Protein Albumin Triglycerides Cholesterol LDL Cholesterol Direct HDL Cholesterol Urine WBC (Auto) Urine Creatinine Urine Total Protein Vancomycin Trough Rheumatoid Factor Complement C4 Miscellaneous Test Crossmatch 09/25/16 09/25/16 09/25/16 04:20 04:20 04:20 WBC RBC 2.58 L Hgb 7.0 L Hct 21.0 L MCV MCH 27 L MCHC RDW 23.8 H Plt Count Lymph % (Auto) [place] % (Auto) Lymph # [place] # Baso # Seg Neutrophils % Seg Neuts % (Manual) Lymphocytes % (Manual) 12.0 L Monocytes % (Manual) Eosinophils % (Manual) 7.0 H Basophils % (Manual) 2.0 H Nucleated RBC % Seg Neutrophils # Seg Neutrophils # Man Lymphocytes # (Manual) 0.9 L Monocytes # (Manual) Eosinophils # (Manual) 0.5 H PT INR Fibrinogen dRVVT Confirm Interp Factor V Activity POC ABG pH POC ABG pCO2 POC ABG pO2 Sodium Potassium Chloride Carbon Dioxide 15 L BUN 72 H Creatinine 3.8 H Glucose POC Glucose Lactic Acid Calcium 6.0 L Phosphorus 4.60 H Magnesium 1.60 L Direct Bilirubin ALT Alkaline Phosphatase Troponin T C-Reactive Protein Total Protein Albumin Triglycerides Cholesterol LDL Cholesterol Direct HDL Cholesterol Urine WBC (Auto) Urine Creatinine Urine Total Protein Vancomycin Trough Rheumatoid Factor Complement C4 Miscellaneous Test Crossmatch 0809/25/16 09/25/16 04:57 08:02 10:30 WBC RBC Hgb Hct MCV MCH MCHC RDW Plt Count Lymph % (Auto) [place] % (Auto) Lymph # [place] # Baso # Seg Neutrophils % Seg Neuts % (Manual) Lymphocytes % (Manual) Monocytes % (Manual) Eosinophils % (Manual) Basophils % (Manual) Nucleated RBC % Seg Neutrophils # Seg Neutrophils # Man Lymphocytes # (Manual) Monocytes # (Manual) Eosinophils # (Manual) PT INR Fibrinogen dRVVT Confirm Interp Factor V Activity POC ABG pH POC ABG pCO2 24.7 L POC ABG pO2 152 H Sodium Potassium Chloride Carbon Dioxide BUN Creatinine Glucose POC Glucose 113 H Lactic Acid Calcium Phosphorus Magnesium Direct Bilirubin ALT Alkaline Phosphatase Troponin T C-Reactive Protein Total Protein Albumin Triglycerides Cholesterol LDL Cholesterol Direct HDL Cholesterol Urine WBC (Auto) Urine Creatinine Urine Total Protein Vancomycin Trough Rheumatoid Factor Complement C4 Miscellaneous Test Crossmatch See Detail 09/25/16 09/25/16 09/25/16 12:05 17:44 23:47 WBC RBC Hgb Hct MCV MCH MCHC RDW Plt Count Lymph % (Auto) [place] % (Auto) Lymph # [place] # Baso # Seg Neutrophils % Seg Neuts % (Manual) Lymphocytes % (Manual) Monocytes % (Manual) Eosinophils % (Manual) Basophils % (Manual) Nucleated RBC % Seg Neutrophils # Seg Neutrophils # Man Lymphocytes # (Manual) Monocytes # (Manual) Eosinophils # (Manual) PT INR Fibrinogen dRVVT Confirm Interp Factor V Activity POC ABG pH POC ABG pCO2 POC ABG pO2 Sodium Potassium Chloride Carbon Dioxide BUN Creatinine Glucose POC Glucose 117 H 119 H 150 H Lactic Acid Calcium Phosphorus Magnesium Direct Bilirubin ALT Alkaline Phosphatase Troponin T C-Reactive Protein Total Protein Albumin Triglycerides Cholesterol LDL Cholesterol Direct HDL Cholesterol Urine WBC (Auto) Urine Creatinine Urine Total Protein Vancomycin Trough Rheumatoid Factor Complement C4 Miscellaneous Test Crossmatch 09/26/16 09/26/16 09/26/16 04:25 04:25 04:25 WBC RBC 2.65 L Hgb 7.4 L Hct 21.6 L MCV MCH MCHC RDW 22.5 H Plt Count Lymph % (Auto) [place] % (Auto) Lymph # [place] # Baso # Seg Neutrophils % Seg Neuts % (Manual) Lymphocytes % (Manual) 6.0 L Monocytes % (Manual) Eosinophils % (Manual) 11.0 H Basophils % (Manual) Nucleated RBC % Seg Neutrophils # Seg Neutrophils # Man Lymphocytes # (Manual) 0.4 L Monocytes # (Manual) Eosinophils # (Manual) 0.6 H PT INR Fibrinogen dRVVT Confirm Interp Factor V Activity POC ABG pH POC ABG pCO2 POC ABG pO2 Sodium Potassium Chloride 97.0 L Carbon Dioxide 19 L BUN 43 H Creatinine 2.6 H Glucose 130 H POC Glucose Lactic Acid 4.40 H* Calcium 6.7 L Phosphorus Magnesium Direct Bilirubin ALT Alkaline Phosphatase Troponin T C-Reactive Protein Total Protein Albumin Triglycerides Cholesterol LDL Cholesterol Direct HDL Cholesterol Urine WBC (Auto) Urine Creatinine Urine Total Protein Vancomycin Trough Rheumatoid Factor Complement C4 Miscellaneous Test Crossmatch 09/26/16 09/26/16 09/26/16 05:20 11:44 12:12 WBC RBC Hgb Hct MCV MCH MCHC RDW Plt Count Lymph % (Auto) [place] % (Auto) Lymph # [place] # Baso # Seg Neutrophils % Seg Neuts % (Manual) Lymphocytes % (Manual) Monocytes % (Manual) Eosinophils % (Manual) Basophils % (Manual) Nucleated RBC % Seg Neutrophils # Seg Neutrophils # Man Lymphocytes # (Manual) Monocytes # (Manual) Eosinophils # (Manual) PT INR Fibrinogen dRVVT Confirm Interp Factor V Activity POC ABG pH POC ABG pCO2 27.0 L POC ABG pO2 69 L Sodium Potassium Chloride Carbon Dioxide BUN Creatinine Glucose POC Glucose 121 H 128 H Lactic Acid Calcium Phosphorus Magnesium Direct Bilirubin ALT Alkaline Phosphatase Troponin T C-Reactive Protein Total Protein Albumin Triglycerides Cholesterol LDL Cholesterol Direct HDL Cholesterol Urine WBC (Auto) Urine Creatinine Urine Total Protein Vancomycin Trough Rheumatoid Factor Complement C4 Miscellaneous Test Crossmatch 09/26/16 09/26/16 09/27/16 18:31 23:40 08:20 WBC RBC Hgb Hct MCV MCH MCHC RDW Plt Count Lymph % (Auto) [place] % (Auto) Lymph # [place] # Baso # Seg Neutrophils % Seg Neuts % (Manual) Lymphocytes % (Manual) Monocytes % (Manual) Eosinophils % (Manual) Basophils % (Manual) Nucleated RBC % Seg Neutrophils # Seg Neutrophils # Man Lymphocytes # (Manual) Monocytes # (Manual) Eosinophils # (Manual) PT INR Fibrinogen dRVVT Confirm Interp Factor V Activity POC ABG pH POC ABG pCO2 POC ABG pO2 Sodium Potassium Chloride Carbon Dioxide BUN Creatinine Glucose POC Glucose 120 H 133 H Lactic Acid 4.10 H* Calcium Phosphorus Magnesium Direct Bilirubin ALT Alkaline Phosphatase Troponin T C-Reactive Protein Total Protein Albumin Triglycerides Cholesterol LDL Cholesterol Direct HDL Cholesterol Urine WBC (Auto) Urine Creatinine Urine Total Protein Vancomycin Trough Rheumatoid Factor Complement C4 Miscellaneous Test Crossmatch 09/27/16 09/27/16 09/27/16 11:23 15:00 18:15 WBC RBC Hgb Hct MCV MCH MCHC RDW Plt Count Lymph % (Auto) [place] % (Auto) Lymph # [place] # Baso # Seg Neutrophils % Seg Neuts % (Manual) Lymphocytes % (Manual) Monocytes % (Manual) Eosinophils % (Manual) Basophils % (Manual) Nucleated RBC % Seg Neutrophils # Seg Neutrophils # Man Lymphocytes # (Manual) Monocytes # (Manual) Eosinophils # (Manual) PT INR Fibrinogen dRVVT Confirm Interp Factor V Activity POC ABG pH 7.459 H POC ABG pCO2 27.1 L POC ABG pO2 140 H Sodium Potassium Chloride Carbon Dioxide BUN Creatinine Glucose POC Glucose 114 H 127 H Lactic Acid Calcium Phosphorus Magnesium Direct Bilirubin ALT Alkaline Phosphatase Troponin T C-Reactive Protein Total Protein Albumin Triglycerides Cholesterol LDL Cholesterol Direct HDL Cholesterol Urine WBC (Auto) Urine Creatinine Urine Total Protein Vancomycin Trough Rheumatoid Factor Complement C4 Miscellaneous Test Crossmatch 09/27/16 09/27/16 09/28/16 Unknown Unknown 03:45 WBC RBC 2.49 L Hgb 6.8 L Hct 20.7 L MCV MCH 27 L MCHC RDW 22.1 H Plt Count Lymph % (Auto) [place] % (Auto) Lymph # [place] # Baso # Seg Neutrophils % Seg Neuts % (Manual) 32.0 L Lymphocytes % (Manual) 12.0 L Monocytes % (Manual) 11.0 H Eosinophils % (Manual) 10.0 H Basophils % (Manual) Nucleated RBC % Seg Neutrophils # Seg Neutrophils # Man Lymphocytes # (Manual) 1.0 L Monocytes # (Manual) 0.9 H Eosinophils # (Manual) 0.8 H PT INR Fibrinogen dRVVT Confirm Interp Factor V Activity POC ABG pH POC ABG pCO2 POC ABG pO2 Sodium 135 L 135 L Potassium 3.5 L Chloride 93.6 L 94.4 L Carbon Dioxide 17 L 21 L BUN 45 H 28 H Creatinine 3.3 H 2.5 H Glucose 106 H POC Glucose Lactic Acid Calcium 7.3 L 7.1 L Phosphorus Magnesium Direct Bilirubin ALT Alkaline Phosphatase Troponin T C-Reactive Protein Total Protein Albumin Triglycerides Cholesterol LDL Cholesterol Direct HDL Cholesterol Urine WBC (Auto) Urine Creatinine Urine Total Protein Vancomycin Trough Rheumatoid Factor Complement C4 Miscellaneous Test Crossmatch 09/28/16 09/28/16 09/28/16 03:45 07:25 11:58 WBC 13.3 H RBC 3.01 L Hgb 8.4 L Hct 25.0 L MCV MCH MCHC RDW 20.5 H Plt Count 128 L Lymph % (Auto) [place] % (Auto) Lymph # [place] # Baso # Seg Neutrophils % Seg Neuts % (Manual) Lymphocytes % (Manual) 7.0 L Monocytes % (Manual) Eosinophils % (Manual) 6.0 H Basophils % (Manual) Nucleated RBC % Seg Neutrophils # Seg Neutrophils # Man Lymphocytes # (Manual) 0.9 L Monocytes # (Manual) Eosinophils # (Manual) 0.8 H PT INR Fibrinogen dRVVT Confirm Interp Factor V Activity POC ABG pH POC ABG pCO2 POC ABG pO2 Sodium Potassium Chloride Carbon Dioxide BUN Creatinine Glucose POC Glucose 121 H Lactic Acid 4.50 H* Calcium Phosphorus Magnesium Direct Bilirubin ALT Alkaline Phosphatase Troponin T C-Reactive Protein Total Protein Albumin Triglycerides Cholesterol LDL Cholesterol Direct HDL Cholesterol Urine WBC (Auto) Urine Creatinine Urine Total Protein Vancomycin Trough Rheumatoid Factor Complement C4 Miscellaneous Test Crossmatch 09/29/16 09/29/16 09/29/16 06:45 06:45 06:45 WBC 14.9 H RBC 2.74 L Hgb 7.6 L Hct 23.2 L MCV MCH MCHC RDW 20.5 H Plt Count 81 L Lymph % (Auto) [place] % (Auto) Lymph # [place] # Baso # Seg Neutrophils % Seg Neuts % (Manual) 81.0 H Lymphocytes % (Manual) 4.0 L Monocytes % (Manual) Eosinophils % (Manual) Basophils % (Manual) Nucleated RBC % Seg Neutrophils # Seg Neutrophils # Man 12.1 H Lymphocytes # (Manual) 0.6 L Monocytes # (Manual) Eosinophils # (Manual) PT INR Fibrinogen dRVVT Confirm Interp Factor V Activity POC ABG pH POC ABG pCO2 POC ABG pO2 Sodium 133 L Potassium 3.4 L Chloride 92.5 L Carbon Dioxide 21 L BUN 33 H Creatinine 3.0 H Glucose POC Glucose Lactic Acid Calcium 6.6 L Phosphorus Magnesium 1.40 L Direct Bilirubin 0.9 H ALT Alkaline Phosphatase Troponin T C-Reactive Protein Total Protein 4.3 L Albumin 1.3 L Triglycerides Cholesterol LDL Cholesterol Direct HDL Cholesterol Urine WBC (Auto) Urine Creatinine Urine Total Protein Vancomycin Trough Rheumatoid Factor Complement C4 Miscellaneous Test Crossmatch 09/29/16 09/29/16 09/30/16 17:52 20:12 00:07 WBC RBC Hgb Hct MCV MCH MCHC RDW Plt Count Lymph % (Auto) [place] % (Auto) Lymph # [place] # Baso # Seg Neutrophils % Seg Neuts % (Manual) Lymphocytes % (Manual) Monocytes % (Manual) Eosinophils % (Manual) Basophils % (Manual) Nucleated RBC % Seg Neutrophils # Seg Neutrophils # Man Lymphocytes # (Manual) Monocytes # (Manual) Eosinophils # (Manual) PT INR Fibrinogen dRVVT Confirm Interp Factor V Activity POC ABG pH POC ABG pCO2 POC ABG pO2 Sodium Potassium Chloride Carbon Dioxide BUN Creatinine Glucose POC Glucose 50 L 51 L Lactic Acid Calcium Phosphorus Magnesium Direct Bilirubin ALT Alkaline Phosphatase Troponin T 0.204 H* C-Reactive Protein Total Protein Albumin Triglycerides Cholesterol 31 L LDL Cholesterol Direct 4 L HDL Cholesterol 3 L Urine WBC (Auto) Urine Creatinine Urine Total Protein Vancomycin Trough Rheumatoid Factor Complement C4 Miscellaneous Test Crossmatch 09/30/16 09/30/16 09/30/16 01:30 05:15 06:10 WBC RBC Hgb Hct MCV MCH MCHC RDW Plt Count Lymph % (Auto) [place] % (Auto) Lymph # [place] # Baso # Seg Neutrophils % Seg Neuts % (Manual) Lymphocytes % (Manual) Monocytes % (Manual) Eosinophils % (Manual) Basophils % (Manual) Nucleated RBC % Seg Neutrophils # Seg Neutrophils # Man Lymphocytes # (Manual) Monocytes # (Manual) Eosinophils # (Manual) PT INR Fibrinogen dRVVT Confirm Interp Factor V Activity POC ABG pH POC ABG pCO2 POC ABG pO2 Sodium 133 L Potassium 3.2 L Chloride 93.2 L Carbon Dioxide 19 L BUN 36 H Creatinine 3.2 H Glucose 104 H POC Glucose 167 H 146 H Lactic Acid Calcium 6.4 L Phosphorus Magnesium 1.60 L Direct Bilirubin ALT Alkaline Phosphatase Troponin T C-Reactive Protein Total Protein Albumin Triglycerides Cholesterol LDL Cholesterol Direct HDL Cholesterol Urine WBC (Auto) Urine Creatinine Urine Total Protein Vancomycin Trough Rheumatoid Factor Complement C4 Miscellaneous Test Crossmatch 09/30/16 09/30/16 09/30/16 11:26 13:39 18:38 WBC RBC Hgb Hct MCV MCH MCHC RDW Plt Count Lymph % (Auto) [place] % (Auto) Lymph # [place] # Baso # Seg Neutrophils % Seg Neuts % (Manual) Lymphocytes % (Manual) Monocytes % (Manual) Eosinophils % (Manual) Basophils % (Manual) Nucleated RBC % Seg Neutrophils # Seg Neutrophils # Man Lymphocytes # (Manual) Monocytes # (Manual) Eosinophils # (Manual) PT INR Fibrinogen dRVVT Confirm Interp Factor V Activity POC ABG pH 7.479 H POC ABG pCO2 29.8 L POC ABG pO2 117 H Sodium Potassium Chloride Carbon Dioxide BUN Creatinine Glucose POC Glucose 140 H 122 H Lactic Acid Calcium Phosphorus Magnesium Direct Bilirubin ALT Alkaline Phosphatase Troponin T C-Reactive Protein Total Protein Albumin Triglycerides Cholesterol LDL Cholesterol Direct HDL Cholesterol Urine WBC (Auto) Urine Creatinine Urine Total Protein Vancomycin Trough Rheumatoid Factor Complement C4 Miscellaneous Test Crossmatch 10/01/16 10/01/16 10/01/16 06:00 06:00 12:37 WBC 12.6 H RBC 2.75 L Hgb 7.3 L Hct 23.3 L MCV MCH 27 L MCHC RDW 20.6 H Plt Count 72 L Lymph % (Auto) [place] % (Auto) Lymph # [place] # Baso # Seg Neutrophils % Seg Neuts % (Manual) 31.0 L Lymphocytes % (Manual) 8.0 L Monocytes % (Manual) Eosinophils % (Manual) Basophils % (Manual) Nucleated RBC % 3.0 H Seg Neutrophils # Seg Neutrophils # Man Lymphocytes # (Manual) 1.0 L Monocytes # (Manual) Eosinophils # (Manual) PT INR Fibrinogen dRVVT Confirm Interp Factor V Activity POC ABG pH POC ABG pCO2 POC ABG pO2 Sodium 127 L Potassium Chloride 86.8 L Carbon Dioxide 20 L BUN 42 H Creatinine 3.5 H Glucose POC Glucose 65 L Lactic Acid Calcium 7.0 L Phosphorus Magnesium Direct Bilirubin ALT Alkaline Phosphatase Troponin T C-Reactive Protein Total Protein Albumin Triglycerides Cholesterol LDL Cholesterol Direct HDL Cholesterol Urine WBC (Auto) Urine Creatinine Urine Total Protein Vancomycin Trough Rheumatoid Factor Complement C4 Miscellaneous Test Crossmatch 10/01/16 10/01/16 10/02/16 17:39 23:32 00:59 WBC RBC Hgb Hct MCV MCH MCHC RDW Plt Count Lymph % (Auto) Creek % (Auto) Lymph # [place] # Baso # Seg Neutrophils % Seg Neuts % (Manual) Lymphocytes % (Manual) Monocytes % (Manual) Eosinophils % (Manual) Basophils % (Manual) Nucleated RBC % Seg Neutrophils # Seg Neutrophils # Man Lymphocytes # (Manual) Monocytes # (Manual) Eosinophils # (Manual) PT INR Fibrinogen dRVVT Confirm Interp Factor V Activity POC ABG pH POC ABG pCO2 POC ABG pO2 Sodium Potassium Chloride Carbon Dioxide BUN Creatinine Glucose POC Glucose 107 H 52 L 145 H Lactic Acid Calcium Phosphorus Magnesium Direct Bilirubin ALT Alkaline Phosphatase Troponin T C-Reactive Protein Total Protein Albumin Triglycerides Cholesterol LDL Cholesterol Direct HDL Cholesterol Urine WBC (Auto) Urine Creatinine Urine Total Protein Vancomycin Trough Rheumatoid Factor Complement C4 Miscellaneous Test Crossmatch 10/02/16 10/02/16 10/02/16 10:30 10:50 10:50 WBC 14.7 H RBC 2.76 L Hgb 7.4 L Hct 23.6 L MCV MCH 27 L MCHC RDW 20.2 H Plt Count 79 L Lymph % (Auto) [place] % (Auto) Lymph # [place] # Baso # Seg Neutrophils % Seg Neuts % (Manual) 86.0 H Lymphocytes % (Manual) 6.0 L Monocytes % (Manual) Eosinophils % (Manual) Basophils % (Manual) Nucleated RBC % Seg Neutrophils # Seg Neutrophils # Man 12.6 H Lymphocytes # (Manual) 0.9 L Monocytes # (Manual) Eosinophils # (Manual) PT INR Fibrinogen dRVVT Confirm Interp Factor V Activity POC ABG pH 7.486 H POC ABG pCO2 30.1 L POC ABG pO2 108 H Sodium 131 L Potassium 3.4 L Chloride 89.9 L Carbon Dioxide BUN 26 H Creatinine 2.6 H Glucose POC Glucose Lactic Acid Calcium 7.0 L Phosphorus Magnesium Direct Bilirubin ALT Alkaline Phosphatase Troponin T C-Reactive Protein Total Protein Albumin Triglycerides Cholesterol LDL Cholesterol Direct HDL Cholesterol Urine WBC (Auto) Urine Creatinine Urine Total Protein Vancomycin Trough Rheumatoid Factor Complement C4 Miscellaneous Test Crossmatch 10/02/16 10/03/16 10/03/16 23:45 00:45 05:10 WBC 12.9 H RBC 2.77 L Hgb 7.6 L Hct 23.7 L MCV MCH 27 L MCHC RDW 19.7 H Plt Count 89 L Lymph % (Auto) [place] % (Auto) Lymph # [place] # Baso # Seg Neutrophils % Seg Neuts % (Manual) Lymphocytes % (Manual) 8.0 L Monocytes % (Manual) Eosinophils % (Manual) Basophils % (Manual) Nucleated RBC % Seg Neutrophils # 11.9 H Seg Neutrophils # Man Lymphocytes # (Manual) 1.0 L Monocytes # (Manual) Eosinophils # (Manual) PT INR Fibrinogen dRVVT Confirm Interp Factor V Activity POC ABG pH POC ABG pCO2 POC ABG pO2 Sodium Potassium Chloride Carbon Dioxide BUN Creatinine Glucose POC Glucose 55 L 199 H Lactic Acid Calcium Phosphorus Magnesium Direct Bilirubin ALT Alkaline Phosphatase Troponin T C-Reactive Protein Total Protein Albumin Triglycerides Cholesterol LDL Cholesterol Direct HDL Cholesterol Urine WBC (Auto) Urine Creatinine Urine Total Protein Vancomycin Trough Rheumatoid Factor Complement C4 Miscellaneous Test Crossmatch 10/03/16 10/03/16 10/03/16 05:10 12:14 13:18 WBC RBC Hgb Hct MCV MCH MCHC RDW Plt Count Lymph % (Auto) [place] % (Auto) Lymph # [place] # Baso # Seg Neutrophils % Seg Neuts % (Manual) Lymphocytes % (Manual) Monocytes % (Manual) Eosinophils % (Manual) Basophils % (Manual) Nucleated RBC % Seg Neutrophils # Seg Neutrophils # Man Lymphocytes # (Manual) Monocytes # (Manual) Eosinophils # (Manual) PT INR Fibrinogen dRVVT Confirm Interp Factor V Activity POC ABG pH POC ABG pCO2 POC ABG pO2 Sodium 129 L Potassium 3.3 L Chloride 88.8 L Carbon Dioxide 20 L BUN 29 H Creatinine 2.8 H Glucose POC Glucose 68 L 127 H Lactic Acid Calcium 7.2 L Phosphorus Magnesium Direct Bilirubin ALT Alkaline Phosphatase Troponin T C-Reactive Protein Total Protein Albumin Triglycerides Cholesterol LDL Cholesterol Direct HDL Cholesterol Urine WBC (Auto) Urine Creatinine Urine Total Protein Vancomycin Trough Rheumatoid Factor Complement C4 Miscellaneous Test Crossmatch 10/03/16 10/03/16 10/03/16 14:42 18:21 19:09 WBC RBC Hgb Hct MCV MCH MCHC RDW Plt Count Lymph % (Auto) [place] % (Auto) Lymph # [place] # Baso # Seg Neutrophils % Seg Neuts % (Manual) Lymphocytes % (Manual) Monocytes % (Manual) Eosinophils % (Manual) Basophils % (Manual) Nucleated RBC % Seg Neutrophils # Seg Neutrophils # Man Lymphocytes # (Manual) Monocytes # (Manual) Eosinophils # (Manual) PT INR Fibrinogen dRVVT Confirm Interp Factor V Activity POC ABG pH 7.499 H POC ABG pCO2 28.4 L POC ABG pO2 44 L Sodium Potassium Chloride Carbon Dioxide BUN Creatinine Glucose POC Glucose 64 L 205 H Lactic Acid Calcium Phosphorus Magnesium Direct Bilirubin ALT Alkaline Phosphatase Troponin T C-Reactive Protein Total Protein Albumin Triglycerides Cholesterol LDL Cholesterol Direct HDL Cholesterol Urine WBC (Auto) Urine Creatinine Urine Total Protein Vancomycin Trough Rheumatoid Factor Complement C4 Miscellaneous Test Crossmatch 10/03/16 10/04/16 10/04/16 23:33 04:18 06:30 WBC RBC 2.54 L Hgb 7.1 L Hct 21.7 L MCV MCH MCHC RDW 19.5 H Plt Count 76 L Lymph % (Auto) [place] % (Auto) Lymph # [place] # Baso # Seg Neutrophils % Seg Neuts % (Manual) 88.0 H Lymphocytes % (Manual) 6.0 L Monocytes % (Manual) Eosinophils % (Manual) Basophils % (Manual) Nucleated RBC % Seg Neutrophils # Seg Neutrophils # Man 8.8 H Lymphocytes # (Manual) 0.6 L Monocytes # (Manual) Eosinophils # (Manual) PT INR Fibrinogen dRVVT Confirm Interp Factor V Activity POC ABG pH 7.461 H POC ABG pCO2 33.6 L POC ABG pO2 211 H Sodium Potassium Chloride Carbon Dioxide BUN Creatinine Glucose POC Glucose 136 H Lactic Acid Calcium Phosphorus Magnesium Direct Bilirubin ALT Alkaline Phosphatase Troponin T C-Reactive Protein Total Protein Albumin Triglycerides Cholesterol LDL Cholesterol Direct HDL Cholesterol Urine WBC (Auto) Urine Creatinine Urine Total Protein Vancomycin Trough Rheumatoid Factor Complement C4 Miscellaneous Test Crossmatch 10/04/16 10/04/16 10/04/16 06:30 11:45 17:54 WBC RBC Hgb Hct MCV MCH MCHC RDW Plt Count Lymph % (Auto) [place] % (Auto) Lymph # [place] # Baso # Seg Neutrophils % Seg Neuts % (Manual) Lymphocytes % (Manual) Monocytes % (Manual) Eosinophils % (Manual) Basophils % (Manual) Nucleated RBC % Seg Neutrophils # Seg Neutrophils # Man Lymphocytes # (Manual) Monocytes # (Manual) Eosinophils # (Manual) PT INR Fibrinogen dRVVT Confirm Interp Factor V Activity POC ABG pH POC ABG pCO2 POC ABG pO2 Sodium 128 L Potassium Chloride 87.4 L Carbon Dioxide 20 L BUN 34 H Creatinine 2.9 H Glucose 127 H POC Glucose 158 H 160 H Lactic Acid Calcium 7.4 L Phosphorus Magnesium Direct Bilirubin ALT Alkaline Phosphatase Troponin T C-Reactive Protein Total Protein Albumin Triglycerides Cholesterol LDL Cholesterol Direct HDL Cholesterol Urine WBC (Auto) Urine Creatinine Urine Total Protein Vancomycin Trough Rheumatoid Factor Complement C4 Miscellaneous Test Crossmatch 08/10/05/16 10/05/16 23:25 04:30 05:00 WBC RBC 2.64 L Hgb 7.5 L Hct 22.6 L MCV MCH MCHC RDW 19.3 H Plt Count 80 L Lymph % (Auto) [place] % (Auto) Lymph # [place] # Baso # Seg Neutrophils % Seg Neuts % (Manual) Lymphocytes % (Manual) 12.0 L Monocytes % (Manual) Eosinophils % (Manual) Basophils % (Manual) Nucleated RBC % Seg Neutrophils # Seg Neutrophils # Man Lymphocytes # (Manual) Monocytes # (Manual) Eosinophils # (Manual) PT INR Fibrinogen dRVVT Confirm Interp Factor V Activity POC ABG pH 7.475 H POC ABG pCO2 33.3 L POC ABG pO2 140 H Sodium Potassium Chloride Carbon Dioxide BUN Creatinine Glucose POC Glucose 141 H Lactic Acid Calcium Phosphorus Magnesium Direct Bilirubin ALT Alkaline Phosphatase Troponin T C-Reactive Protein Total Protein Albumin Triglycerides Cholesterol LDL Cholesterol Direct HDL Cholesterol Urine WBC (Auto) Urine Creatinine Urine Total Protein Vancomycin Trough Rheumatoid Factor Complement C4 Miscellaneous Test Crossmatch 10/05/16 10/05/16 10/05/16 05:00 05:09 12:58 WBC RBC Hgb Hct MCV MCH MCHC RDW Plt Count Lymph % (Auto) [place] % (Auto) Lymph # [place] # Baso # Seg Neutrophils % Seg Neuts % (Manual) Lymphocytes % (Manual) Monocytes % (Manual) Eosinophils % (Manual) Basophils % (Manual) Nucleated RBC % Seg Neutrophils # Seg Neutrophils # Man Lymphocytes # (Manual) Monocytes # (Manual) Eosinophils # (Manual) PT INR Fibrinogen dRVVT Confirm Interp Factor V Activity POC ABG pH POC ABG pCO2 POC ABG pO2 Sodium 131 L Potassium Chloride 94.0 L Carbon Dioxide 20 L BUN 22 H Creatinine 2.0 H Glucose 123 H POC Glucose 166 H 179 H Lactic Acid Calcium 7.7 L Phosphorus 2.20 L D Magnesium Direct Bilirubin ALT Alkaline Phosphatase Troponin T C-Reactive Protein Total Protein Albumin Triglycerides Cholesterol LDL Cholesterol Direct HDL Cholesterol Urine WBC (Auto) Urine Creatinine Urine Total Protein Vancomycin Trough Rheumatoid Factor Complement C4 Miscellaneous Test Crossmatch 10/05/16 10/05/16 10/05/16 15:50 18:53 23:12 WBC RBC Hgb Hct MCV MCH MCHC RDW Plt Count Lymph % (Auto) [place] % (Auto) Lymph # [place] # Baso # Seg Neutrophils % Seg Neuts % (Manual) Lymphocytes % (Manual) Monocytes % (Manual) Eosinophils % (Manual) Basophils % (Manual) Nucleated RBC % Seg Neutrophils # Seg Neutrophils # Man Lymphocytes # (Manual) Monocytes # (Manual) Eosinophils # (Manual) PT INR Fibrinogen dRVVT Confirm Interp Factor V Activity POC ABG pH POC ABG pCO2 POC ABG pO2 Sodium Potassium Chloride Carbon Dioxide BUN Creatinine Glucose POC Glucose 150 H 164 H Lactic Acid Calcium Phosphorus Magnesium Direct Bilirubin ALT Alkaline Phosphatase Troponin T C-Reactive Protein Total Protein Albumin Triglycerides Cholesterol LDL Cholesterol Direct HDL Cholesterol Urine WBC (Auto) Urine Creatinine Urine Total Protein Vancomycin Trough Rheumatoid Factor Complement C4 Miscellaneous Test Crossmatch See Detail 10/06/16 10/06/16 10/06/16 03:50 03:50 04:53 WBC RBC 3.00 L Hgb 8.6 L Hct 25.8 L MCV MCH MCHC RDW 17.9 H Plt Count 65 L Lymph % (Auto) [place] % (Auto) Lymph # [place] # Baso # Seg Neutrophils % Seg Neuts % (Manual) 30.0 L Lymphocytes % (Manual) 5.0 L Monocytes % (Manual) Eosinophils % (Manual) Basophils % (Manual) Nucleated RBC % Seg Neutrophils # Seg Neutrophils # Man Lymphocytes # (Manual) 0.4 L Monocytes # (Manual) Eosinophils # (Manual) PT INR Fibrinogen dRVVT Confirm Interp Factor V Activity POC ABG pH 7.310 L POC ABG pCO2 49.0 H POC ABG pO2 Sodium 133 L Potassium Chloride 95.9 L Carbon Dioxide BUN 26 H Creatinine 2.0 H Glucose 116 H POC Glucose Lactic Acid Calcium 7.8 L Phosphorus Magnesium Direct Bilirubin ALT Alkaline Phosphatase Troponin T C-Reactive Protein Total Protein Albumin Triglycerides Cholesterol LDL Cholesterol Direct HDL Cholesterol Urine WBC (Auto) Urine Creatinine Urine Total Protein Vancomycin Trough Rheumatoid Factor Complement C4 Miscellaneous Test Crossmatch 10/06/16 10/06/16 10/06/16 05:23 11:52 18:34 WBC RBC Hgb Hct MCV MCH MCHC RDW Plt Count Lymph % (Auto) [place] % (Auto) Lymph # [place] # Baso # Seg Neutrophils % Seg Neuts % (Manual) Lymphocytes % (Manual) Monocytes % (Manual) Eosinophils % (Manual) Basophils % (Manual) Nucleated RBC % Seg Neutrophils # Seg Neutrophils # Man Lymphocytes # (Manual) Monocytes # (Manual) Eosinophils # (Manual) PT INR Fibrinogen dRVVT Confirm Interp Factor V Activity POC ABG pH POC ABG pCO2 POC ABG pO2 Sodium Potassium Chloride Carbon Dioxide BUN Creatinine Glucose POC Glucose 126 H 116 H 129 H Lactic Acid Calcium Phosphorus Magnesium Direct Bilirubin ALT Alkaline Phosphatase Troponin T C-Reactive Protein Total Protein Albumin Triglycerides Cholesterol LDL Cholesterol Direct HDL Cholesterol Urine WBC (Auto) Urine Creatinine Urine Total Protein Vancomycin Trough Rheumatoid Factor Complement C4 Miscellaneous Test Crossmatch 10/07/16 10/07/16 10/07/16 03:45 05:00 10:00 WBC 17.0 H RBC 2.68 L Hgb 7.3 L Hct 25.3 L MCV MCH 27 L MCHC 29 L RDW 19.6 H Plt Count 74 L Lymph % (Auto) [place] % (Auto) Lymph # [place] # Baso # Seg Neutrophils % Seg Neuts % (Manual) Lymphocytes % (Manual) 12.0 L Monocytes % (Manual) Eosinophils % (Manual) Basophils % (Manual) Nucleated RBC % 4.0 H Seg Neutrophils # Seg Neutrophils # Man 10.7 H Lymphocytes # (Manual) Monocytes # (Manual) Eosinophils # (Manual) PT INR Fibrinogen dRVVT Confirm Interp Factor V Activity POC ABG pH POC ABG pCO2 POC ABG pO2 Sodium 130 L Potassium 3.2 L Chloride 93.9 L Carbon Dioxide 20 L BUN 44 H Creatinine 2.7 H Glucose 129 H POC Glucose Lactic Acid Calcium 7.4 L Phosphorus Magnesium Direct Bilirubin ALT 6 L Alkaline Phosphatase 195 H Troponin T C-Reactive Protein Total Protein 4.9 L Albumin 1.0 L Triglycerides Cholesterol LDL Cholesterol Direct HDL Cholesterol Urine WBC (Auto) Urine Creatinine Urine Total Protein Vancomycin Trough Rheumatoid Factor Complement C4 Miscellaneous Test Flexitest 1 H Crossmatch 10/07/16 10/07/16 10/07/16 10:00 11:24 18:10 WBC RBC Hgb Hct MCV MCH MCHC RDW Plt Count Lymph % (Auto) [place] % (Auto) Lymph # [place] # Baso # Seg Neutrophils % Seg Neuts % (Manual) Lymphocytes % (Manual) Monocytes % (Manual) Eosinophils % (Manual) Basophils % (Manual) Nucleated RBC % Seg Neutrophils # Seg Neutrophils # Man Lymphocytes # (Manual) Monocytes # (Manual) Eosinophils # (Manual) PT INR Fibrinogen dRVVT Confirm Interp Factor V Activity POC ABG pH POC ABG pCO2 POC ABG pO2 Sodium Potassium Chloride Carbon Dioxide BUN Creatinine Glucose POC Glucose 116 H 130 H Lactic Acid Calcium Phosphorus Magnesium Direct Bilirubin ALT Alkaline Phosphatase Troponin T C-Reactive Protein 19.40 H Total Protein Albumin Triglycerides Cholesterol LDL Cholesterol Direct HDL Cholesterol Urine WBC (Auto) Urine Creatinine Urine Total Protein Vancomycin Trough Rheumatoid Factor Complement C4 Miscellaneous Test Crossmatch 10/07/16 10/08/16 10/08/16 18:30 00:00 04:00 WBC RBC Hgb Hct MCV MCH MCHC RDW Plt Count Lymph % (Auto) [place] % (Auto) Lymph # [place] # Baso # Seg Neutrophils % Seg Neuts % (Manual) Lymphocytes % (Manual) Monocytes % (Manual) Eosinophils % (Manual) Basophils % (Manual) Nucleated RBC % Seg Neutrophils # Seg Neutrophils # Man Lymphocytes # (Manual) Monocytes # (Manual) Eosinophils # (Manual) PT INR Fibrinogen dRVVT Confirm Interp Factor V Activity POC ABG pH POC ABG pCO2 POC ABG pO2 Sodium 132 L Potassium 3.3 L Chloride 93.6 L Carbon Dioxide 17 L BUN 59 H Creatinine 2.7 H Glucose 121 H POC Glucose 122 H Lactic Acid Calcium 7.6 L Phosphorus Magnesium Direct Bilirubin ALT Alkaline Phosphatase Troponin T C-Reactive Protein Total Protein Albumin Triglycerides Cholesterol LDL Cholesterol Direct HDL Cholesterol Urine WBC (Auto) > 182.0 H Urine Creatinine Urine Total Protein Vancomycin Trough Rheumatoid Factor Complement C4 Miscellaneous Test Crossmatch 10/08/16 10/08/16 10/08/16 04:30 05:30 11:51 WBC RBC 5.15 H Hgb 14.4 H D Hct 44.5 H D MCV MCH MCHC RDW 19.5 H Plt Count 56 L Lymph % (Auto) [place] % (Auto) Lymph # [place] # Baso # Seg Neutrophils % Seg Neuts % (Manual) 24.0 L Lymphocytes % (Manual) 8.0 L Monocytes % (Manual) Eosinophils % (Manual) Basophils % (Manual) Nucleated RBC % 9.0 H Seg Neutrophils # Seg Neutrophils # Man Lymphocytes # (Manual) 0.7 L Monocytes # (Manual) Eosinophils # (Manual) PT INR Fibrinogen dRVVT Confirm Interp Factor V Activity POC ABG pH POC ABG pCO2 POC ABG pO2 Sodium Potassium Chloride Carbon Dioxide BUN Creatinine Glucose POC Glucose 125 H 150 H Lactic Acid Calcium Phosphorus Magnesium Direct Bilirubin ALT Alkaline Phosphatase Troponin T C-Reactive Protein Total Protein Albumin Triglycerides Cholesterol LDL Cholesterol Direct HDL Cholesterol Urine WBC (Auto) Urine Creatinine Urine Total Protein Vancomycin Trough Rheumatoid Factor Complement C4 Miscellaneous Test Crossmatch 10/08/16 10/08/16 10/08/16 12:49 17:07 19:30 WBC RBC Hgb 7.1 L D Hct 22.4 L D MCV MCH MCHC RDW Plt Count Lymph % (Auto) [place] % (Auto) Lymph # [place] # Baso # Seg Neutrophils % Seg Neuts % (Manual) Lymphocytes % (Manual) Monocytes % (Manual) Eosinophils % (Manual) Basophils % (Manual) Nucleated RBC % Seg Neutrophils # Seg Neutrophils # Man Lymphocytes # (Manual) Monocytes # (Manual) Eosinophils # (Manual) PT INR Fibrinogen dRVVT Confirm Interp Factor V Activity POC ABG pH POC ABG pCO2 28.2 L POC ABG pO2 111 H Sodium Potassium Chloride Carbon Dioxide BUN Creatinine Glucose POC Glucose 145 H Lactic Acid Calcium Phosphorus Magnesium Direct Bilirubin ALT Alkaline Phosphatase Troponin T C-Reactive Protein Total Protein Albumin Triglycerides Cholesterol LDL Cholesterol Direct HDL Cholesterol Urine WBC (Auto) Urine Creatinine Urine Total Protein Vancomycin Trough Rheumatoid Factor Complement C4 Miscellaneous Test Crossmatch 10/08/16 10/09/16 10/09/16 19:30 03:45 03:45 WBC 12.6 H RBC 2.36 L Hgb 6.7 L Hct 21.1 L MCV MCH MCHC RDW 19.5 H Plt Count 75 L Lymph % (Auto) [place] % (Auto) Lymph # [place] # Baso # Seg Neutrophils % Seg Neuts % (Manual) Lymphocytes % (Manual) Monocytes % (Manual) 10.0 H Eosinophils % (Manual) Basophils % (Manual) Nucleated RBC % 3.0 H Seg Neutrophils # Seg Neutrophils # Man Lymphocytes # (Manual) Monocytes # (Manual) 1.3 H Eosinophils # (Manual) PT 18.0 H INR 1.41 H Fibrinogen dRVVT Confirm Interp Factor V Activity POC ABG pH POC ABG pCO2 POC ABG pO2 Sodium 135 L Potassium Chloride Carbon Dioxide 17 L BUN 81 H Creatinine 3.2 H Glucose 109 H POC Glucose Lactic Acid Calcium 7.4 L Phosphorus 4.60 H D Magnesium Direct Bilirubin ALT Alkaline Phosphatase Troponin T C-Reactive Protein Total Protein Albumin Triglycerides Cholesterol LDL Cholesterol Direct HDL Cholesterol Urine WBC (Auto) Urine Creatinine Urine Total Protein Vancomycin Trough Rheumatoid Factor Complement C4 Miscellaneous Test Crossmatch 10/09/16 10/09/16 10/09/16 03:45 05:14 07:20 WBC RBC Hgb Hct MCV MCH MCHC RDW Plt Count Lymph % (Auto) [place] % (Auto) Lymph # [place] # Baso # Seg Neutrophils % Seg Neuts % (Manual) Lymphocytes % (Manual) Monocytes % (Manual) Eosinophils % (Manual) Basophils % (Manual) Nucleated RBC % Seg Neutrophils # Seg Neutrophils # Man Lymphocytes # (Manual) Monocytes # (Manual) Eosinophils # (Manual) PT 19.0 H INR 1.51 H Fibrinogen dRVVT Confirm Interp Factor V Activity POC ABG pH POC ABG pCO2 POC ABG pO2 Sodium Potassium Chloride Carbon Dioxide BUN Creatinine Glucose POC Glucose 151 H Lactic Acid Calcium Phosphorus Magnesium Direct Bilirubin ALT Alkaline Phosphatase Troponin T C-Reactive Protein Total Protein Albumin Triglycerides Cholesterol LDL Cholesterol Direct HDL Cholesterol Urine WBC (Auto) Urine Creatinine Urine Total Protein Vancomycin Trough Rheumatoid Factor Complement C4 Miscellaneous Test Crossmatch See Detail 10/09/16 10/09/16 10/09/16 11:46 16:20 16:43 WBC RBC Hgb 7.2 L Hct 22.2 L MCV MCH MCHC RDW Plt Count Lymph % (Auto) [place] % (Auto) Lymph # [place] # Baso # Seg Neutrophils % Seg Neuts % (Manual) Lymphocytes % (Manual) Monocytes % (Manual) Eosinophils % (Manual) Basophils % (Manual) Nucleated RBC % Seg Neutrophils # Seg Neutrophils # Man Lymphocytes # (Manual) Monocytes # (Manual) Eosinophils # (Manual) PT INR Fibrinogen dRVVT Confirm Interp Factor V Activity POC ABG pH POC ABG pCO2 POC ABG pO2 Sodium Potassium Chloride Carbon Dioxide BUN Creatinine Glucose POC Glucose 133 H 141 H Lactic Acid Calcium Phosphorus Magnesium Direct Bilirubin ALT Alkaline Phosphatase Troponin T C-Reactive Protein Total Protein Albumin Triglycerides Cholesterol LDL Cholesterol Direct HDL Cholesterol Urine WBC (Auto) Urine Creatinine Urine Total Protein Vancomycin Trough Rheumatoid Factor Complement C4 Miscellaneous Test Crossmatch 10/10/16 10/10/16 10/10/16 05:00 05:00 11:19 WBC 18.5 H RBC 2.19 L Hgb 6.4 L Hct 19.6 L* MCV MCH MCHC RDW 19.3 H Plt Count 93 L Lymph % (Auto) [place] % (Auto) Lymph # [place] # Baso # Seg Neutrophils % Seg Neuts % (Manual) Lymphocytes % (Manual) 10.0 L Monocytes % (Manual) Eosinophils % (Manual) Basophils % (Manual) Nucleated RBC % 4.0 H Seg Neutrophils # Seg Neutrophils # Man 11.3 H Lymphocytes # (Manual) Monocytes # (Manual) Eosinophils # (Manual) PT INR Fibrinogen dRVVT Confirm Interp Factor V Activity POC ABG pH POC ABG pCO2 POC ABG pO2 Sodium Potassium 5.7 H D Chloride Carbon Dioxide 16 L BUN 94 H Creatinine 3.1 H Glucose 131 H POC Glucose 153 H Lactic Acid Calcium 8.2 L Phosphorus 5.10 H Magnesium 2.40 H Direct Bilirubin 0.3 H ALT < 5 L Alkaline Phosphatase 319 H Troponin T C-Reactive Protein Total Protein 5.1 L Albumin 1.0 L Triglycerides Cholesterol LDL Cholesterol Direct HDL Cholesterol Urine WBC (Auto) Urine Creatinine Urine Total Protein Vancomycin Trough Rheumatoid Factor Complement C4 Miscellaneous Test Crossmatch 10/10/16 10/10/16 10/11/16 17:50 23:30 04:15 WBC RBC Hgb Hct MCV MCH MCHC RDW Plt Count Lymph % (Auto) [place] % (Auto) Lymph # [place] # Baso # Seg Neutrophils % Seg Neuts % (Manual) Lymphocytes % (Manual) Monocytes % (Manual) Eosinophils % (Manual) Basophils % (Manual) Nucleated RBC % Seg Neutrophils # Seg Neutrophils # Man Lymphocytes # (Manual) Monocytes # (Manual) Eosinophils # (Manual) PT INR Fibrinogen dRVVT Confirm Interp Factor V Activity POC ABG pH POC ABG pCO2 POC ABG pO2 Sodium Potassium Chloride 96.4 L Carbon Dioxide 21 L BUN 57 H Creatinine 2.1 H Glucose 151 H POC Glucose 146 H 141 H Lactic Acid Calcium 8.3 L Phosphorus Magnesium Direct Bilirubin ALT Alkaline Phosphatase Troponin T C-Reactive Protein Total Protein Albumin Triglycerides Cholesterol LDL Cholesterol Direct HDL Cholesterol Urine WBC (Auto) Urine Creatinine Urine Total Protein Vancomycin Trough Rheumatoid Factor Complement C4 Miscellaneous Test Crossmatch 10/11/16 10/11/16 10/11/16 04:15 04:15 05:30 WBC 28.3 H RBC 3.12 L Hgb 9.3 L Hct 28.7 L D MCV MCH MCHC RDW 17.7 H Plt Count 128 L Lymph % (Auto) [place] % (Auto) Lymph # [place] # Baso # Seg Neutrophils % Seg Neuts % (Manual) Lymphocytes % (Manual) Monocytes % (Manual) Eosinophils % (Manual) Basophils % (Manual) Nucleated RBC % Seg Neutrophils # Seg Neutrophils # Man Lymphocytes # (Manual) Monocytes # (Manual) Eosinophils # (Manual) PT INR Fibrinogen dRVVT Confirm Interp Factor V Activity POC ABG pH POC ABG pCO2 POC ABG pO2 Sodium Potassium Chloride Carbon Dioxide BUN Creatinine Glucose POC Glucose 167 H Lactic Acid Calcium Phosphorus Magnesium Direct Bilirubin ALT Alkaline Phosphatase Troponin T C-Reactive Protein 15.80 H Total Protein Albumin Triglycerides Cholesterol LDL Cholesterol Direct HDL Cholesterol Urine WBC (Auto) Urine Creatinine Urine Total Protein Vancomycin Trough Rheumatoid Factor Complement C4 Miscellaneous Test Crossmatch 10/11/16 10/11/16 10/11/16 11:40 15:49 23:57 WBC RBC Hgb Hct MCV MCH MCHC RDW Plt Count Lymph % (Auto) [place] % (Auto) Lymph # [place] # Baso # Seg Neutrophils % Seg Neuts % (Manual) Lymphocytes % (Manual) Monocytes % (Manual) Eosinophils % (Manual) Basophils % (Manual) Nucleated RBC % Seg Neutrophils # Seg Neutrophils # Man Lymphocytes # (Manual) Monocytes # (Manual) Eosinophils # (Manual) PT INR Fibrinogen dRVVT Confirm Interp Factor V Activity POC ABG pH POC ABG pCO2 POC ABG pO2 Sodium Potassium Chloride Carbon Dioxide BUN Creatinine Glucose POC Glucose 139 H 168 H 161 H Lactic Acid Calcium Phosphorus Magnesium Direct Bilirubin ALT Alkaline Phosphatase Troponin T C-Reactive Protein Total Protein Albumin Triglycerides Cholesterol LDL Cholesterol Direct HDL Cholesterol Urine WBC (Auto) Urine Creatinine Urine Total Protein Vancomycin Trough Rheumatoid Factor Complement C4 Miscellaneous Test Crossmatch 10/12/16 10/12/16 10/12/16 04:40 04:40 05:44 WBC 22.5 H RBC 2.88 L Hgb 8.8 L Hct 26.8 L MCV MCH MCHC RDW 17.8 H Plt Count Lymph % (Auto) [place] % (Auto) Lymph # [place] # Baso # Seg Neutrophils % Seg Neuts % (Manual) Lymphocytes % (Manual) Monocytes % (Manual) Eosinophils % (Manual) Basophils % (Manual) Nucleated RBC % Seg Neutrophils # Seg Neutrophils # Man Lymphocytes # (Manual) Monocytes # (Manual) Eosinophils # (Manual) PT INR Fibrinogen dRVVT Confirm Interp Factor V Activity POC ABG pH POC ABG pCO2 POC ABG pO2 Sodium 134 L Potassium Chloride 93.0 L Carbon Dioxide BUN 74 H Creatinine 2.5 H Glucose 137 H POC Glucose 158 H Lactic Acid Calcium 8.2 L Phosphorus Magnesium Direct Bilirubin ALT Alkaline Phosphatase Troponin T C-Reactive Protein Total Protein Albumin Triglycerides Cholesterol LDL Cholesterol Direct HDL Cholesterol Urine WBC (Auto) Urine Creatinine Urine Total Protein Vancomycin Trough Rheumatoid Factor Complement C4 Miscellaneous Test Crossmatch 10/12/16 10/12/16 10/12/16 12:27 18:18 23:46 WBC RBC Hgb Hct MCV MCH MCHC RDW Plt Count Lymph % (Auto) [place] % (Auto) Lymph # [place] # Baso # Seg Neutrophils % Seg Neuts % (Manual) Lymphocytes % (Manual) Monocytes % (Manual) Eosinophils % (Manual) Basophils % (Manual) Nucleated RBC % Seg Neutrophils # Seg Neutrophils # Man Lymphocytes # (Manual) Monocytes # (Manual) Eosinophils # (Manual) PT INR Fibrinogen dRVVT Confirm Interp Factor V Activity POC ABG pH POC ABG pCO2 POC ABG pO2 Sodium Potassium Chloride Carbon Dioxide BUN Creatinine Glucose POC Glucose 153 H 140 H 150 H Lactic Acid Calcium Phosphorus Magnesium Direct Bilirubin ALT Alkaline Phosphatase Troponin T C-Reactive Protein Total Protein Albumin Triglycerides Cholesterol LDL Cholesterol Direct HDL Cholesterol Urine WBC (Auto) Urine Creatinine Urine Total Protein Vancomycin Trough Rheumatoid Factor Complement C4 Miscellaneous Test Crossmatch 10/13/16 10/13/16 10/13/16 06:22 09:20 12:29 WBC RBC Hgb Hct MCV MCH MCHC RDW Plt Count Lymph % (Auto) [place] % (Auto) Lymph # [place] # Baso # Seg Neutrophils % Seg Neuts % (Manual) Lymphocytes % (Manual) Monocytes % (Manual) Eosinophils % (Manual) Basophils % (Manual) Nucleated RBC % Seg Neutrophils # Seg Neutrophils # Man Lymphocytes # (Manual) Monocytes # (Manual) Eosinophils # (Manual) PT INR Fibrinogen dRVVT Confirm Interp Factor V Activity POC ABG pH POC ABG pCO2 POC ABG pO2 Sodium Potassium Chloride Carbon Dioxide BUN Creatinine Glucose POC Glucose 165 H 193 H Lactic Acid Calcium Phosphorus Magnesium Direct Bilirubin ALT Alkaline Phosphatase Troponin T C-Reactive Protein Total Protein Albumin Triglycerides Cholesterol LDL Cholesterol Direct HDL Cholesterol Urine WBC (Auto) Urine Creatinine Urine Total Protein Vancomycin Trough Rheumatoid Factor Complement C4 Miscellaneous Test Flexitest 1 H Crossmatch 10/13/16 10/13/16 10/13/16 18:09 Unknown Unknown WBC 23.4 H RBC 2.83 L Hgb 8.7 L Hct 26.1 L MCV MCH MCHC RDW 18.1 H Plt Count Lymph % (Auto) [place] % (Auto) Lymph # [place] # Baso # Seg Neutrophils % Seg Neuts % (Manual) Lymphocytes % (Manual) Monocytes % (Manual) Eosinophils % (Manual) Basophils % (Manual) Nucleated RBC % Seg Neutrophils # Seg Neutrophils # Man Lymphocytes # (Manual) Monocytes # (Manual) Eosinophils # (Manual) PT INR Fibrinogen dRVVT Confirm Interp Factor V Activity POC ABG pH POC ABG pCO2 POC ABG pO2 Sodium Potassium Chloride 95.8 L Carbon Dioxide BUN 82 H Creatinine 2.6 H Glucose 152 H POC Glucose 166 H Lactic Acid Calcium Phosphorus Magnesium Direct Bilirubin ALT Alkaline Phosphatase Troponin T C-Reactive Protein Total Protein Albumin Triglycerides Cholesterol LDL Cholesterol Direct HDL Cholesterol Urine WBC (Auto) Urine Creatinine Urine Total Protein Vancomycin Trough Rheumatoid Factor Complement C4 Miscellaneous Test Crossmatch 10/14/16 10/14/16 10/14/16 05:38 06:35 08:10 WBC 20.7 H RBC 2.81 L Hgb 8.4 L Hct 27.2 L MCV MCH MCHC RDW 19.4 H Plt Count Lymph % (Auto) [place] % (Auto) Lymph # [place] # Baso # Seg Neutrophils % Seg Neuts % (Manual) Lymphocytes % (Manual) Monocytes % (Manual) Eosinophils % (Manual) Basophils % (Manual) Nucleated RBC % Seg Neutrophils # Seg Neutrophils # Man Lymphocytes # (Manual) Monocytes # (Manual) Eosinophils # (Manual) PT INR Fibrinogen dRVVT Confirm Interp Factor V Activity POC ABG pH POC ABG pCO2 POC ABG pO2 Sodium Potassium Chloride Carbon Dioxide BUN 58 H Creatinine 1.9 H Glucose 169 H POC Glucose 195 H Lactic Acid Calcium Phosphorus Magnesium Direct Bilirubin ALT Alkaline Phosphatase Troponin T C-Reactive Protein Total Protein Albumin Triglycerides Cholesterol LDL Cholesterol Direct HDL Cholesterol Urine WBC (Auto) Urine Creatinine Urine Total Protein Vancomycin Trough Rheumatoid Factor Complement C4 Miscellaneous Test Crossmatch 10/14/16 10/14/16 10/14/16 11:44 17:13 23:28 WBC RBC Hgb Hct MCV MCH MCHC RDW Plt Count Lymph % (Auto) [place] % (Auto) Lymph # [place] # Baso # Seg Neutrophils % Seg Neuts % (Manual) Lymphocytes % (Manual) Monocytes % (Manual) Eosinophils % (Manual) Basophils % (Manual) Nucleated RBC % Seg Neutrophils # Seg Neutrophils # Man Lymphocytes # (Manual) Monocytes # (Manual) Eosinophils # (Manual) PT INR Fibrinogen dRVVT Confirm Interp Factor V Activity POC ABG pH POC ABG pCO2 POC ABG pO2 Sodium Potassium Chloride Carbon Dioxide BUN Creatinine Glucose POC Glucose 174 H 121 H 151 H Lactic Acid Calcium Phosphorus Magnesium Direct Bilirubin ALT Alkaline Phosphatase Troponin T C-Reactive Protein Total Protein Albumin Triglycerides Cholesterol LDL Cholesterol Direct HDL Cholesterol Urine WBC (Auto) Urine Creatinine Urine Total Protein Vancomycin Trough Rheumatoid Factor Complement C4 Miscellaneous Test Crossmatch 10/15/16 10/15/16 10/15/16 05:06 12:26 17:48 WBC RBC Hgb Hct MCV MCH MCHC RDW Plt Count Lymph % (Auto) [place] % (Auto) Lymph # [place] # Baso # Seg Neutrophils % Seg Neuts % (Manual) Lymphocytes % (Manual) Monocytes % (Manual) Eosinophils % (Manual) Basophils % (Manual) Nucleated RBC % Seg Neutrophils # Seg Neutrophils # Man Lymphocytes # (Manual) Monocytes # (Manual) Eosinophils # (Manual) PT INR Fibrinogen dRVVT Confirm Interp Factor V Activity POC ABG pH POC ABG pCO2 POC ABG pO2 Sodium Potassium Chloride Carbon Dioxide BUN Creatinine Glucose POC Glucose 151 H 149 H 153 H Lactic Acid Calcium Phosphorus Magnesium Direct Bilirubin ALT Alkaline Phosphatase Troponin T C-Reactive Protein Total Protein Albumin Triglycerides Cholesterol LDL Cholesterol Direct HDL Cholesterol Urine WBC (Auto) Urine Creatinine Urine Total Protein Vancomycin Trough Rheumatoid Factor Complement C4 Miscellaneous Test Crossmatch 10/15/16 10/15/16 10/16/16 Unknown Unknown 00:02 WBC 23.4 H RBC 2.78 L Hgb 8.5 L Hct 25.7 L MCV MCH MCHC RDW 18.7 H Plt Count Lymph % (Auto) [place] % (Auto) Lymph # [place] # Baso # Seg Neutrophils % Seg Neuts % (Manual) Lymphocytes % (Manual) Monocytes % (Manual) Eosinophils % (Manual) Basophils % (Manual) Nucleated RBC % Seg Neutrophils # Seg Neutrophils # Man Lymphocytes # (Manual) Monocytes # (Manual) Eosinophils # (Manual) PT INR Fibrinogen dRVVT Confirm Interp Factor V Activity POC ABG pH POC ABG pCO2 POC ABG pO2 Sodium Potassium Chloride Carbon Dioxide BUN 73 H Creatinine 2.3 H Glucose 120 H POC Glucose 137 H Lactic Acid Calcium Phosphorus Magnesium Direct Bilirubin ALT Alkaline Phosphatase Troponin T C-Reactive Protein Total Protein Albumin Triglycerides Cholesterol LDL Cholesterol Direct HDL Cholesterol Urine WBC (Auto) Urine Creatinine Urine Total Protein Vancomycin Trough Rheumatoid Factor Complement C4 Miscellaneous Test Crossmatch 10/16/16 10/16/16 10/16/16 05:44 06:25 06:25 WBC 22.5 H RBC 2.76 L Hgb 8.3 L Hct 25.2 L MCV MCH MCHC RDW 18.3 H Plt Count Lymph % (Auto) [place] % (Auto) Lymph # [place] # Baso # Seg Neutrophils % Seg Neuts % (Manual) Lymphocytes % (Manual) Monocytes % (Manual) Eosinophils % (Manual) Basophils % (Manual) Nucleated RBC % Seg Neutrophils # Seg Neutrophils # Man Lymphocytes # (Manual) Monocytes # (Manual) Eosinophils # (Manual) PT INR Fibrinogen dRVVT Confirm Interp Factor V Activity POC ABG pH POC ABG pCO2 POC ABG pO2 Sodium Potassium Chloride Carbon Dioxide BUN 92 H Creatinine 3.0 H Glucose 138 H POC Glucose 110 H Lactic Acid Calcium Phosphorus Magnesium Direct Bilirubin ALT Alkaline Phosphatase Troponin T C-Reactive Protein Total Protein Albumin Triglycerides Cholesterol LDL Cholesterol Direct HDL Cholesterol Urine WBC (Auto) Urine Creatinine Urine Total Protein Vancomycin Trough Rheumatoid Factor Complement C4 Miscellaneous Test Crossmatch 10/16/16 10/16/16 10/16/16 11:27 11:48 17:36 WBC RBC Hgb Hct MCV MCH MCHC RDW Plt Count Lymph % (Auto) [place] % (Auto) Lymph # [place] # Baso # Seg Neutrophils % Seg Neuts % (Manual) Lymphocytes % (Manual) Monocytes % (Manual) Eosinophils % (Manual) Basophils % (Manual) Nucleated RBC % Seg Neutrophils # Seg Neutrophils # Man Lymphocytes # (Manual) Monocytes # (Manual) Eosinophils # (Manual) PT INR Fibrinogen dRVVT Confirm Interp Factor V Activity POC ABG pH 7.582 H POC ABG pCO2 27.4 L POC ABG pO2 110 H Sodium Potassium Chloride Carbon Dioxide BUN Creatinine Glucose POC Glucose 121 H 133 H Lactic Acid Calcium Phosphorus Magnesium Direct Bilirubin ALT Alkaline Phosphatase Troponin T C-Reactive Protein Total Protein Albumin Triglycerides Cholesterol LDL Cholesterol Direct HDL Cholesterol Urine WBC (Auto) Urine Creatinine Urine Total Protein Vancomycin Trough Rheumatoid Factor Complement C4 Miscellaneous Test Crossmatch 10/16/16 10/17/16 10/17/16 20:48 04:24 04:24 WBC 21.4 H RBC 2.72 L Hgb 8.0 L Hct 25.2 L MCV MCH MCHC RDW 18.0 H Plt Count Lymph % (Auto) [place] % (Auto) Lymph # [place] # Baso # Seg Neutrophils % Seg Neuts % (Manual) Lymphocytes % (Manual) Monocytes % (Manual) Eosinophils % (Manual) Basophils % (Manual) Nucleated RBC % Seg Neutrophils # Seg Neutrophils # Man Lymphocytes # (Manual) Monocytes # (Manual) Eosinophils # (Manual) PT INR Fibrinogen dRVVT Confirm Interp Factor V Activity POC ABG pH 7.561 H POC ABG pCO2 24.4 L POC ABG pO2 77 L Sodium 148 H Potassium Chloride Carbon Dioxide BUN 104 H Creatinine 3.0 H Glucose 149 H POC Glucose Lactic Acid Calcium Phosphorus Magnesium Direct Bilirubin ALT Alkaline Phosphatase 138 H Troponin T C-Reactive Protein Total Protein 6.2 L Albumin 1.5 L Triglycerides Cholesterol LDL Cholesterol Direct HDL Cholesterol Urine WBC (Auto) Urine Creatinine Urine Total Protein Vancomycin Trough Rheumatoid Factor Complement C4 Miscellaneous Test Crossmatch 10/17/16 10/17/16 10/17/16 06:02 12:17 17:14 WBC RBC Hgb Hct MCV MCH MCHC RDW Plt Count Lymph % (Auto) [place] % (Auto) Lymph # [place] # Baso # Seg Neutrophils % Seg Neuts % (Manual) Lymphocytes % (Manual) Monocytes % (Manual) Eosinophils % (Manual) Basophils % (Manual) Nucleated RBC % Seg Neutrophils # Seg Neutrophils # Man Lymphocytes # (Manual) Monocytes # (Manual) Eosinophils # (Manual) PT INR Fibrinogen dRVVT Confirm Interp Factor V Activity POC ABG pH POC ABG pCO2 POC ABG pO2 Sodium Potassium Chloride Carbon Dioxide BUN Creatinine Glucose POC Glucose 170 H 167 H 126 H Lactic Acid Calcium Phosphorus Magnesium Direct Bilirubin ALT Alkaline Phosphatase Troponin T C-Reactive Protein Total Protein Albumin Triglycerides Cholesterol LDL Cholesterol Direct HDL Cholesterol Urine WBC (Auto) Urine Creatinine Urine Total Protein Vancomycin Trough Rheumatoid Factor Complement C4 Miscellaneous Test Crossmatch 10/17/16 10/18/16 10/18/16 23:17 04:00 04:00 WBC 20.7 H RBC 2.47 L Hgb 7.4 L Hct 22.9 L MCV MCH MCHC RDW 17.5 H Plt Count Lymph % (Auto) [place] % (Auto) Lymph # [place] # Baso # Seg Neutrophils % Seg Neuts % (Manual) Lymphocytes % (Manual) Monocytes % (Manual) Eosinophils % (Manual) Basophils % (Manual) Nucleated RBC % Seg Neutrophils # Seg Neutrophils # Man Lymphocytes # (Manual) Monocytes # (Manual) Eosinophils # (Manual) PT INR Fibrinogen dRVVT Confirm Interp Factor V Activity POC ABG pH POC ABG pCO2 POC ABG pO2 Sodium 149 H Potassium Chloride 107.9 H Carbon Dioxide 20 L BUN 117 H Creatinine 3.2 H Glucose 119 H POC Glucose 121 H Lactic Acid Calcium Phosphorus Magnesium Direct Bilirubin ALT Alkaline Phosphatase Troponin T C-Reactive Protein Total Protein Albumin Triglycerides Cholesterol LDL Cholesterol Direct HDL Cholesterol Urine WBC (Auto) Urine Creatinine Urine Total Protein Vancomycin Trough Rheumatoid Factor Complement C4 Miscellaneous Test Crossmatch 10/18/16 10/18/16 10/18/16 05:23 10:46 17:30 WBC RBC Hgb Hct MCV MCH MCHC RDW Plt Count Lymph % (Auto) [place] % (Auto) Lymph # [place] # Baso # Seg Neutrophils % Seg Neuts % (Manual) Lymphocytes % (Manual) Monocytes % (Manual) Eosinophils % (Manual) Basophils % (Manual) Nucleated RBC % Seg Neutrophils # Seg Neutrophils # Man Lymphocytes # (Manual) Monocytes # (Manual) Eosinophils # (Manual) PT INR Fibrinogen dRVVT Confirm Interp Factor V Activity POC ABG pH POC ABG pCO2 POC ABG pO2 Sodium Potassium Chloride Carbon Dioxide BUN Creatinine Glucose POC Glucose 119 H 155 H 124 H Lactic Acid Calcium Phosphorus Magnesium Direct Bilirubin ALT Alkaline Phosphatase Troponin T C-Reactive Protein Total Protein Albumin Triglycerides Cholesterol LDL Cholesterol Direct HDL Cholesterol Urine WBC (Auto) Urine Creatinine Urine Total Protein Vancomycin Trough Rheumatoid Factor Complement C4 Miscellaneous Test Crossmatch 10/19/16 10/19/16 10/19/16 04:00 04:00 05:25 WBC 17.4 H RBC 2.54 L Hgb 7.7 L Hct 23.6 L MCV MCH MCHC RDW 17.3 H Plt Count Lymph % (Auto) [place] % (Auto) Lymph # [place] # Baso # Seg Neutrophils % Seg Neuts % (Manual) Lymphocytes % (Manual) Monocytes % (Manual) Eosinophils % (Manual) Basophils % (Manual) Nucleated RBC % Seg Neutrophils # Seg Neutrophils # Man Lymphocytes # (Manual) Monocytes # (Manual) Eosinophils # (Manual) PT INR Fibrinogen dRVVT Confirm Interp Factor V Activity POC ABG pH POC ABG pCO2 POC ABG pO2 Sodium Potassium Chloride Carbon Dioxide BUN 72 H Creatinine 2.1 H Glucose 116 H POC Glucose 119 H Lactic Acid Calcium Phosphorus Magnesium Direct Bilirubin ALT Alkaline Phosphatase Troponin T C-Reactive Protein Total Protein Albumin Triglycerides Cholesterol LDL Cholesterol Direct HDL Cholesterol Urine WBC (Auto) Urine Creatinine Urine Total Protein Vancomycin Trough Rheumatoid Factor Complement C4 Miscellaneous Test Crossmatch 10/19/16 10/19/16 10/20/16 11:46 23:59 06:00 WBC RBC Hgb Hct MCV MCH MCHC RDW Plt Count Lymph % (Auto) [place] % (Auto) Lymph # [place] # Baso # Seg Neutrophils % Seg Neuts % (Manual) Lymphocytes % (Manual) Monocytes % (Manual) Eosinophils % (Manual) Basophils % (Manual) Nucleated RBC % Seg Neutrophils # Seg Neutrophils # Man Lymphocytes # (Manual) Monocytes # (Manual) Eosinophils # (Manual) PT INR Fibrinogen dRVVT Confirm Interp Factor V Activity POC ABG pH POC ABG pCO2 POC ABG pO2 Sodium Potassium Chloride Carbon Dioxide 17 L BUN 94 H Creatinine 2.7 H Glucose POC Glucose 116 H 117 H Lactic Acid Calcium Phosphorus Magnesium Direct Bilirubin ALT Alkaline Phosphatase Troponin T C-Reactive Protein Total Protein Albumin Triglycerides Cholesterol LDL Cholesterol Direct HDL Cholesterol Urine WBC (Auto) Urine Creatinine Urine Total Protein Vancomycin Trough Rheumatoid Factor Complement C4 Miscellaneous Test Crossmatch 10/20/16 10/20/16 10/20/16 06:00 11:49 16:00 WBC 19.7 H RBC 2.51 L Hgb 7.7 L Hct 23.5 L MCV MCH MCHC RDW 17.5 H Plt Count Lymph % (Auto) [place] % (Auto) Lymph # [place] # Baso # Seg Neutrophils % Seg Neuts % (Manual) Lymphocytes % (Manual) Monocytes % (Manual) Eosinophils % (Manual) Basophils % (Manual) Nucleated RBC % Seg Neutrophils # Seg Neutrophils # Man Lymphocytes # (Manual) Monocytes # (Manual) Eosinophils # (Manual) PT INR Fibrinogen dRVVT Confirm Interp Factor V Activity POC ABG pH POC ABG pCO2 POC ABG pO2 Sodium Potassium Chloride Carbon Dioxide BUN Creatinine Glucose POC Glucose 117 H Lactic Acid Calcium Phosphorus Magnesium Direct Bilirubin ALT Alkaline Phosphatase Troponin T C-Reactive Protein Total Protein Albumin Triglycerides Cholesterol LDL Cholesterol Direct HDL Cholesterol Urine WBC (Auto) Urine Creatinine Urine Total Protein Vancomycin Trough Rheumatoid Factor Complement C4 Miscellaneous Test Flexitest 1 H Crossmatch 10/20/16 10/20/16 10/21/16 18:36 23:39 04:00 WBC RBC Hgb Hct MCV MCH MCHC RDW Plt Count Lymph % (Auto) [place] % (Auto) Lymph # [place] # Baso # Seg Neutrophils % Seg Neuts % (Manual) Lymphocytes % (Manual) Monocytes % (Manual) Eosinophils % (Manual) Basophils % (Manual) Nucleated RBC % Seg Neutrophils # Seg Neutrophils # Man Lymphocytes # (Manual) Monocytes # (Manual) Eosinophils # (Manual) PT INR Fibrinogen dRVVT Confirm Interp Factor V Activity POC ABG pH POC ABG pCO2 POC ABG pO2 Sodium Potassium 5.4 H D Chloride Carbon Dioxide 15 L BUN 110 H Creatinine 3.0 H Glucose POC Glucose 127 H 114 H Lactic Acid Calcium Phosphorus Magnesium Direct Bilirubin ALT Alkaline Phosphatase Troponin T C-Reactive Protein Total Protein Albumin Triglycerides Cholesterol LDL Cholesterol Direct HDL Cholesterol Urine WBC (Auto) Urine Creatinine Urine Total Protein Vancomycin Trough Rheumatoid Factor Complement C4 Miscellaneous Test Crossmatch 10/21/16 10/21/16 10/22/16 05:54 23:46 05:18 WBC RBC Hgb Hct MCV MCH MCHC RDW Plt Count Lymph % (Auto) [place] % (Auto) Lymph # [place] # Baso # Seg Neutrophils % Seg Neuts % (Manual) Lymphocytes % (Manual) Monocytes % (Manual) Eosinophils % (Manual) Basophils % (Manual) Nucleated RBC % Seg Neutrophils # Seg Neutrophils # Man Lymphocytes # (Manual) Monocytes # (Manual) Eosinophils # (Manual) PT INR Fibrinogen dRVVT Confirm Interp Factor V Activity POC ABG pH POC ABG pCO2 POC ABG pO2 Sodium Potassium Chloride Carbon Dioxide BUN Creatinine Glucose POC Glucose 119 H 108 H 109 H Lactic Acid Calcium Phosphorus Magnesium Direct Bilirubin ALT Alkaline Phosphatase Troponin T C-Reactive Protein Total Protein Albumin Triglycerides Cholesterol LDL Cholesterol Direct HDL Cholesterol Urine WBC (Auto) Urine Creatinine Urine Total Protein Vancomycin Trough Rheumatoid Factor Complement C4 Miscellaneous Test Crossmatch 10/22/16 10/22/16 10/22/16 06:40 06:40 06:40 WBC 14.0 H RBC 2.03 L Hgb 7.0 L Hct 20.5 L MCV 98 H MCH 34 H MCHC 35 H RDW 17.8 H Plt Count Lymph % (Auto) [place] % (Auto) 9.9 H Lymph # [place] # 1.4 H Baso # 0.2 H Seg Neutrophils % 72.0 H Seg Neuts % (Manual) Lymphocytes % (Manual) Monocytes % (Manual) Eosinophils % (Manual) Basophils % (Manual) Nucleated RBC % Seg Neutrophils # 10.0 H Seg Neutrophils # Man Lymphocytes # (Manual) Monocytes # (Manual) Eosinophils # (Manual) PT INR Fibrinogen dRVVT Confirm Interp Factor V Activity POC ABG pH POC ABG pCO2 POC ABG pO2 Sodium 130 L D Potassium Chloride 92.4 L Carbon Dioxide 20 L BUN 50 H Creatinine 1.6 H Glucose 589 H* POC Glucose Lactic Acid Calcium 7.8 L D Phosphorus Magnesium 1.60 L Direct Bilirubin ALT Alkaline Phosphatase Troponin T C-Reactive Protein Total Protein Albumin Triglycerides Cholesterol LDL Cholesterol Direct HDL Cholesterol Urine WBC (Auto) Urine Creatinine Urine Total Protein Vancomycin Trough Rheumatoid Factor Complement C4 Miscellaneous Test Crossmatch 10/22/16 10/22/16 10/22/16 11:39 16:44 23:36 WBC RBC Hgb Hct MCV MCH MCHC RDW Plt Count Lymph % (Auto) [place] % (Auto) Lymph # [place] # Baso # Seg Neutrophils % Seg Neuts % (Manual) Lymphocytes % (Manual) Monocytes % (Manual) Eosinophils % (Manual) Basophils % (Manual) Nucleated RBC % Seg Neutrophils # Seg Neutrophils # Man Lymphocytes # (Manual) Monocytes # (Manual) Eosinophils # (Manual) PT INR Fibrinogen dRVVT Confirm Interp Factor V Activity POC ABG pH POC ABG pCO2 POC ABG pO2 Sodium Potassium Chloride Carbon Dioxide BUN Creatinine Glucose POC Glucose 142 H 163 H 123 H Lactic Acid Calcium Phosphorus Magnesium Direct Bilirubin ALT Alkaline Phosphatase Troponin T C-Reactive Protein Total Protein Albumin Triglycerides Cholesterol LDL Cholesterol Direct HDL Cholesterol Urine WBC (Auto) Urine Creatinine Urine Total Protein Vancomycin Trough Rheumatoid Factor Complement C4 Miscellaneous Test Crossmatch 10/23/16 10/23/16 10/23/16 04:58 06:00 12:12 WBC RBC Hgb Hct MCV MCH MCHC RDW Plt Count Lymph % (Auto) [place] % (Auto) Lymph # [place] # Baso # Seg Neutrophils % Seg Neuts % (Manual) Lymphocytes % (Manual) Monocytes % (Manual) Eosinophils % (Manual) Basophils % (Manual) Nucleated RBC % Seg Neutrophils # Seg Neutrophils # Man Lymphocytes # (Manual) Monocytes # (Manual) Eosinophils # (Manual) PT INR Fibrinogen dRVVT Confirm Interp Factor V Activity POC ABG pH POC ABG pCO2 POC ABG pO2 Sodium 133 L Potassium 3.5 L Chloride 96.1 L Carbon Dioxide 18 L BUN 76 H Creatinine 2.1 H Glucose POC Glucose 133 H 138 H Lactic Acid Calcium 8.3 L Phosphorus Magnesium Direct Bilirubin ALT Alkaline Phosphatase Troponin T C-Reactive Protein Total Protein Albumin Triglycerides Cholesterol LDL Cholesterol Direct HDL Cholesterol Urine WBC (Auto) Urine Creatinine Urine Total Protein Vancomycin Trough Rheumatoid Factor Complement C4 Miscellaneous Test Crossmatch 10/23/16 10/23/16 10/24/16 16:53 23:37 04:00 WBC RBC Hgb Hct MCV MCH MCHC RDW Plt Count Lymph % (Auto) [place] % (Auto) Lymph # [place] # Baso # Seg Neutrophils % Seg Neuts % (Manual) Lymphocytes % (Manual) Monocytes % (Manual) Eosinophils % (Manual) Basophils % (Manual) Nucleated RBC % Seg Neutrophils # Seg Neutrophils # Man Lymphocytes # (Manual) Monocytes # (Manual) Eosinophils # (Manual) PT INR Fibrinogen dRVVT Confirm Interp Factor V Activity POC ABG pH POC ABG pCO2 POC ABG pO2 Sodium 131 L Potassium Chloride 94.5 L Carbon Dioxide 19 L BUN 97 H Creatinine 2.6 H Glucose 110 H POC Glucose 125 H 123 H Lactic Acid Calcium 8.3 L Phosphorus Magnesium Direct Bilirubin ALT Alkaline Phosphatase Troponin T C-Reactive Protein Total Protein Albumin Triglycerides Cholesterol LDL Cholesterol Direct HDL Cholesterol Urine WBC (Auto) Urine Creatinine Urine Total Protein Vancomycin Trough Rheumatoid Factor Complement C4 Miscellaneous Test Crossmatch 10/24/16 10/24/16 10/24/16 07:49 11:39 17:52 WBC RBC Hgb 6.0 L Hct 19.7 L* MCV MCH MCHC RDW Plt Count Lymph % (Auto) [place] % (Auto) Lymph # [place] # Baso # Seg Neutrophils % Seg Neuts % (Manual) Lymphocytes % (Manual) Monocytes % (Manual) Eosinophils % (Manual) Basophils % (Manual) Nucleated RBC % Seg Neutrophils # Seg Neutrophils # Man Lymphocytes # (Manual) Monocytes # (Manual) Eosinophils # (Manual) PT INR Fibrinogen dRVVT Confirm Interp Factor V Activity POC ABG pH POC ABG pCO2 POC ABG pO2 Sodium Potassium Chloride Carbon Dioxide BUN Creatinine Glucose POC Glucose 106 H 158 H Lactic Acid Calcium Phosphorus Magnesium Direct Bilirubin ALT Alkaline Phosphatase Troponin T C-Reactive Protein Total Protein Albumin Triglycerides Cholesterol LDL Cholesterol Direct HDL Cholesterol Urine WBC (Auto) Urine Creatinine Urine Total Protein Vancomycin Trough Rheumatoid Factor Complement C4 Miscellaneous Test Crossmatch 10/24/16 10/24/16 10/24/16 20:00 22:27 Unknown WBC RBC Hgb 9.4 L D Hct 27.5 L D MCV MCH MCHC RDW Plt Count Lymph % (Auto) [place] % (Auto) Lymph # [place] # Baso # Seg Neutrophils % Seg Neuts % (Manual) Lymphocytes % (Manual) Monocytes % (Manual) Eosinophils % (Manual) Basophils % (Manual) Nucleated RBC % Seg Neutrophils # Seg Neutrophils # Man Lymphocytes # (Manual) Monocytes # (Manual) Eosinophils # (Manual) PT INR Fibrinogen dRVVT Confirm Interp Factor V Activity POC ABG pH POC ABG pCO2 POC ABG pO2 Sodium Potassium Chloride Carbon Dioxide BUN Creatinine Glucose POC Glucose 125 H Lactic Acid Calcium Phosphorus Magnesium Direct Bilirubin ALT Alkaline Phosphatase Troponin T C-Reactive Protein Total Protein Albumin Triglycerides Cholesterol LDL Cholesterol Direct HDL Cholesterol Urine WBC (Auto) Urine Creatinine Urine Total Protein Vancomycin Trough Rheumatoid Factor Complement C4 Miscellaneous Test Crossmatch See Detail 10/25/16 10/25/16 10/25/16 04:00 04:00 04:00 WBC 14.2 H RBC 2.98 L Hgb 9.0 L Hct 26.2 L MCV MCH MCHC RDW 16.6 H Plt Count Lymph % (Auto) [place] % (Auto) 10.7 H Lymph # [place] # 1.5 H Baso # Seg Neutrophils % 73.6 H Seg Neuts % (Manual) Lymphocytes % (Manual) Monocytes % (Manual) Eosinophils % (Manual) Basophils % (Manual) Nucleated RBC % Seg Neutrophils # 10.5 H Seg Neutrophils # Man Lymphocytes # (Manual) Monocytes # (Manual) Eosinophils # (Manual) PT INR Fibrinogen dRVVT Confirm Interp Factor V Activity POC ABG pH POC ABG pCO2 POC ABG pO2 Sodium 132 L Potassium Chloride 94.7 L Carbon Dioxide BUN 51 H Creatinine 1.6 H Glucose 130 H POC Glucose Lactic Acid Calcium 8.3 L Phosphorus 1.60 L D Magnesium Direct Bilirubin ALT Alkaline Phosphatase Troponin T C-Reactive Protein Total Protein Albumin Triglycerides Cholesterol LDL Cholesterol Direct HDL Cholesterol Urine WBC (Auto) Urine Creatinine Urine Total Protein Vancomycin Trough Rheumatoid Factor Complement C4 Miscellaneous Test Crossmatch 10/25/16 10/25/16 10/25/16 04:32 11:48 17:22 WBC RBC Hgb Hct MCV MCH MCHC RDW Plt Count Lymph % (Auto) [place] % (Auto) Lymph # [place] # Baso # Seg Neutrophils % Seg Neuts % (Manual) Lymphocytes % (Manual) Monocytes % (Manual) Eosinophils % (Manual) Basophils % (Manual) Nucleated RBC % Seg Neutrophils # Seg Neutrophils # Man Lymphocytes # (Manual) Monocytes # (Manual) Eosinophils # (Manual) PT INR Fibrinogen dRVVT Confirm Interp Factor V Activity POC ABG pH POC ABG pCO2 POC ABG pO2 Sodium Potassium Chloride Carbon Dioxide BUN Creatinine Glucose POC Glucose 124 H 171 H 120 H Lactic Acid Calcium Phosphorus Magnesium Direct Bilirubin ALT Alkaline Phosphatase Troponin T C-Reactive Protein Total Protein Albumin Triglycerides Cholesterol LDL Cholesterol Direct HDL Cholesterol Urine WBC (Auto) Urine Creatinine Urine Total Protein Vancomycin Trough Rheumatoid Factor Complement C4 Miscellaneous Test Crossmatch 10/26/16 10/26/16 10/26/16 04:54 07:06 07:06 WBC 16.9 H RBC 3.06 L Hgb 9.1 L Hct 26.9 L MCV MCH MCHC RDW 16.9 H Plt Count Lymph % (Auto) [place] % (Auto) Lymph # [place] # Baso # Seg Neutrophils % Seg Neuts % (Manual) 71.0 H Lymphocytes % (Manual) 5.0 L Monocytes % (Manual) 12.0 H Eosinophils % (Manual) Basophils % (Manual) Nucleated RBC % Seg Neutrophils # Seg Neutrophils # Man 12.0 H Lymphocytes # (Manual) 0.8 L Monocytes # (Manual) 2.0 H Eosinophils # (Manual) PT INR Fibrinogen dRVVT Confirm Interp Factor V Activity POC ABG pH POC ABG pCO2 POC ABG pO2 Sodium 135 L Potassium Chloride 97.1 L Carbon Dioxide BUN 73 H Creatinine 2.2 H Glucose 117 H POC Glucose 123 H Lactic Acid Calcium Phosphorus 1.70 L Magnesium Direct Bilirubin ALT Alkaline Phosphatase Troponin T C-Reactive Protein Total Protein Albumin Triglycerides Cholesterol LDL Cholesterol Direct HDL Cholesterol Urine WBC (Auto) Urine Creatinine Urine Total Protein Vancomycin Trough Rheumatoid Factor Complement C4 Miscellaneous Test Crossmatch Chest x-ray: image reviewed Allied health notes reviewed: RT
--- NOTE | 2016-10-26 10:49 | Progress Note ---
Assessment and Plan Assessment: 1) Recurrent Sepsis: fever restarted on 10/24 - likely abdominal wall abscess at surgical site-still draining copious purulence -S/p multiple episodes of sepsis - initially due to presumed aspiration pneumonia, then septic episode on 09/23 from Candidemia. Then from - peritonitis from gastric perforation +/- UTI. Current septic episode from surgical site infection. -CRP 19 --> 22 -Procalcitonin=24 --> 16 --> 4.3 -repeat CT abdomen 10/25 no leak no abscess. +small brit pleural effusion, increased air bronchograms R>L, track to old PEG. Persistent wall thickening sigmoid colon. -repeat blood cx - neg -Wound cx from surgical site infection + MDR Pseudomonas and Silvia albicans 2) Peritonitis: from gastric perforation from dislodged PEG with significant ascites -S/P exlap, repair of gastric perforation with wedge gastrectomy, abdominal washout, drain placement on 10/05. 3) Candidemia: -Blood cultures positive for Silvia albicans on 09/23 -Blood cultures positive on 09/25 -Blood cutlures negative on 09/30 -PICC line changed on 10/03 -Source ? gastric perf (PEG placed on 09/20) +/- TPN +/- central lines -TTE 10/07 no vegetations -PICC exchanged on 10/03 -fully treated with micafungin for 14 days last day 10/13 4) CA-UTI s/p gutierrez exchanged 5) Diarrhea - ? etiology ? antibiotic-induced, not better 6) Initial presumed aspiration pneumonia 7) Presumed UTI: urine cx 09/23 multiple species 8) Respiratory failure s/p trach 9) Recent CVA-left MCA CVA 10) Uncontrolled HTN 11) Acute on CKD 12) Extensive back skin peeling ? burn from gastric secretions. Doubt allergic reaction 13) Severe anemia; ? from GI bleed Plan: -monitor tachycardia -continue zosyn in view of MDR Pseudomonas only sens to zosyn day 6 of 10 -continue fluconazole day 7 of -contact isolation in view of MDR Pseudomonas -discussed with ICU staff Thank you Dr Matias for your consultation, will follow up with you. Pauline Carias MD Infectious Diseases Specialist [facility] ([facility] M [phone] O [phone] Subjective Date of service: 10/26/16 Principal diagnosis: Acute resp failure on MVS; S/P Acute CVA; Acute Encephalopathy; JUANITA Interval history: Tmax 99.9, alert this am open eyes spontaneously, not following commands, on the vent via trach. Microbiology: Blood cultures: 09/13 neg 8/ Silvia albicans 09/25 Silvia 09/29 neg 10/07 NGTD Urine cultures: 09/10 neg 09/13 neg 8/4 10-100K mixed species 10/07 pending Respiratory cultures: 09/07 neg 09/13 neg 8 neg Wound cultures: 10/17 abd wall wound purulence + Pseudomonas MDR Stool cultures: Current Antimicrobials: fluconazole 10/19 zosyn 10/21 Previous Antimicrobials: Zosyn 10/07 Vancomycin PO 10/01 Metronidazole 09/25 Micafungin 09/27-10/13 Meropenem 10/10 Vanco 10/17 Objective - Exam Narrative Exam: General appearance: alert, non verbal, on the vent via trach no following commands Eyes: anicteric sclera, moist conjunctivae; PERRLA HENT: Atraumatic; oropharynx limited; Normal external ears. +NGT with greenish secretion Neck: +trach in place; supple, no thyromegaly or lymphadenopathy Lungs: coarse BS bilateral CV: tachycardic Abdomen: Soft, non-tender, +drain with purulent drainage, + diarrhea via rectal tube leaking. +old PEG site no drainage. Right sided Surgical site packed soaked with copious purulence Extremities: +peripheral edema no extremity lymphadenopathy Skin: sacral area wounds superficial no purulence Psych: somnolent . Neuro: somnolent non verbal on the vent. Lines: left arm PICC placed on 10/03 - Constitutional Vitals: Vital Signs Temp Pulse Resp BP Pulse Ox 99.6 F 115 H 23 156/95 99 10/26/16 08:00 10/26/16 10:01 10/26/16 10:01 10/26/16 10:01 10/26/16 09:31 Temperature -Last 24 Hours Temperature 99.6 F Temperature 99.9 F Temperature 98.8 F Temperature 99.9 F Temperature 99.6 F Temperature 99.6 F - Labs CBC & Chem 7: 10/26/16 07:06 10/26/16 07:06 Labs: Abnormal lab results 10/25/16 10/25/16 10/26/16 Range/Units 11:48 17:22 04:54 WBC (4.5-11.0) K/mm3 RBC (3.65-5.03) M/mm3 Hgb (10.1-14.3) gm/dl Hct (30.3-42.9) % RDW (13.2-15.2) % Seg Neuts % (Manual) (40.0-70.0) % Lymphocytes % (Manual) (13.4-35.0) % Monocytes % (Manual) (0.0-7.3) % Seg Neutrophils # Man (1.8-7.7) K/mm3 Lymphocytes # (Manual) (1.2-5.4) K/mm3 Monocytes # (Manual) (0.0-0.8) K/mm3 Sodium (137-145) mmol/L Chloride (98-107) mmol/L BUN (7-17) mg/dL Creatinine (0.7-1.2) mg/dL Glucose (65-100) mg/dL POC Glucose 171 H 120 H 123 H (70-105) Phosphorus (2.5-4.5) mg/dL 10/26/16 10/26/16 Range/Units 07:06 07:06 WBC 16.9 H (4.5-11.0) K/mm3 RBC 3.06 L (3.65-5.03) M/mm3 Hgb 9.1 L (10.1-14.3) gm/dl Hct 26.9 L (30.3-42.9) % RDW 16.9 H (13.2-15.2) % Seg Neuts % (Manual) 71.0 H (40.0-70.0) % Lymphocytes % (Manual) 5.0 L (13.4-35.0) % Monocytes % (Manual) 12.0 H (0.0-7.3) % Seg Neutrophils # Man 12.0 H (1.8-7.7) K/mm3 Lymphocytes # (Manual) 0.8 L (1.2-5.4) K/mm3 Monocytes # (Manual) 2.0 H (0.0-0.8) K/mm3 Sodium 135 L (137-145) mmol/L Chloride 97.1 L (98-107) mmol/L BUN 73 H (7-17) mg/dL Creatinine 2.2 H (0.7-1.2) mg/dL Glucose 117 H (65-100) mg/dL POC Glucose (70-105) Phosphorus 1.70 L (2.5-4.5) mg/dL
[2016-10-26] MEDS ORDERED: NACL 0.9% 100 ML IV PRN (11:30)
[2016-10-26] MEDS: DURAGESIC TD SCH (13:32)
--- NOTE | 2016-10-26 13:38 | Progress Note ---
Assessment and Plan Assessment and plan: --Severe Sepsis with septic shock. Patient with UTI, candidemia and peritonitis due to gastric perforation and dislodged PEG Continue antibiotics per ID. patient with no fevers for the past 48 hours. --Peritonitis. Repeat CT scan of the abdomen reveals no abscess but there is persistent wall thickening involving the sigmoid colon and several loops of small bowel projecting into the pelvis. The parents suggests enteritis and colitis. --Acute hypoxic respiratory failure, status post tracheostomy, on vent more than 96hrs Pulmonary following --Acute massive CVA with mass effect; continue antiplatelets and statins --Oliguric acute kidney injury. Etiology secondary to ATN on CKD. Baseline creatinine is approximately 1.7. --Paroxysmal atrial fibrillation with rapid ventricular rate, failed cardioversion Continue current medications, Not a candidate for anticoagulation secondary to anemia thrombocytopenia and massive CVA --Anemia; probably secondary to GI bleeding Patient received multiple units of PRBC in the past, H&H has remained stable. re-consult GI if needed If patient has significant vaginal bleeding Consult [employer] REPAIRER HELPER as needed -Toxic metabolic encephalopathy; supportive care --Diabetes mellitus type 2, Insulin/SSI --Severe protein caloric malnutrition, nutrition supplements to proceeding --s/p Thrombocytopenia. Now resolved --DVT prophylaxis, SCDs, no pharmacological agent given anemia , thrombocytopenia, massive stroke --Full code status, very poor prognosis Had family meetings 10/10/16, 10/14/16 plan of care poor prognosis was discussed per Dr. Means Dispo. Very poor prognosis. Patient needs LTAC placement. History Interval history: No new issues overnight. Hospitalist Physical - Constitutional Vitals: Temp Pulse Resp BP Pulse Ox 99.6 F 131 H 38 H 184/105 100 10/26/16 12:00 10/26/16 13:17 10/26/16 12:31 10/26/16 13:17 10/26/16 12:31 General appearance: Present: no acute distress, obese, other (on vent, non- responsive) - EENT Eyes: Present: PERRL, EOM intact ENT: hearing intact, clear oral mucosa, dentition normal - Neck Neck: Present: supple, normal ROM - Respiratory Respiratory effort: normal Respiratory: bilateral: CTA - Cardiovascular Rhythm: regular Heart Sounds: Present: S1 & S2. Absent: gallop, rub - Extremities Extremities: no ischemia, No edema, Full ROM - Abdominal General gastrointestinal: soft, non-tender, non-distended, normal bowel sounds - Integumentary Integumentary: Present: clear, warm, dry - Neurologic Neurologic: CNII-XII intact, moves all extremities Results - Labs CBC & Chem 7: 10/26/16 07:06 10/26/16 07:06 Labs: Laboratory Last Values WBC 16.9 K/mm3 (4.5-11.0) H 10/26/16 07:06 RBC 3.06 M/mm3 (3.65-5.03) L 10/26/16 07:06 Hgb 9.1 gm/dl (10.1-14.3) L 10/26/16 07:06 Hct 26.9 % (30.3-42.9) L 10/26/16 07:06 MCV 88 fl (79-97) 10/26/16 07:06 MCH 30 pg (28-32) 10/26/16 07:06 MCHC 34 % (30-34) 10/26/16 07:06 RDW 16.9 % (13.2-15.2) H 10/26/16 07:06 Plt Count 354 K/mm3 (140-440) 10/26/16 07:06 Lymph % (Auto) 14.0 % (13.4-35.0) 10/25/16 04:00 [place] % (Auto) 10.7 % (0.0-7.3) H 10/25/16 04:00 Eos % (Auto) 0.7 % (0.0-4.3) 10/25/16 04:00 Baso % (Auto) 1.0 % (0.0-1.8) 10/25/16 04:00 Lymph # 2.0 K/mm3 (1.2-5.4) 10/25/16 04:00 [place] # 1.5 K/mm3 (0.0-0.8) H 10/25/16 04:00 Eos # 0.1 K/mm3 (0.0-0.4) 10/25/16 04:00 Baso # 0.1 K/mm3 (0.0-0.1) 10/25/16 04:00 Add Manual Diff Complete 10/26/16 07:06 Total Counted 100 10/26/16 07:06 Seg Neutrophils % 73.6 % (40.0-70.0) H 10/25/16 04:00 Seg Neuts % (Manual) 71.0 % (40.0-70.0) H 10/26/16 07:06 Band Neutrophils % 12.0 % 10/26/16 07:06 Lymphocytes % (Manual) 5.0 % (13.4-35.0) L 10/26/16 07:06 Reactive Lymphs % (Man) 0 % 10/26/16 07:06 Monocytes % (Manual) 12.0 % (0.0-7.3) H 10/26/16 07:06 Eosinophils % (Manual) 0 % (0.0-4.3) 10/26/16 07:06 Basophils % (Manual) 0 % (0.0-1.8) 10/26/16 07:06 Metamyelocytes % 0 % 10/26/16 07:06 Myelocytes % 0 % 10/26/16 07:06 Promyelocytes % 0 % 10/26/16 07:06 Blast Cells % 0 % 10/26/16 07:06 Nucleated RBC % Not Reportable 10/26/16 07:06 Seg Neutrophils # 10.5 K/mm3 (1.8-7.7) H 10/25/16 04:00 Seg Neutrophils # Man 12.0 K/mm3 (1.8-7.7) H 10/26/16 07:06 Band Neutrophils # 2.0 K/mm3 10/26/16 07:06 Lymphocytes # (Manual) 0.8 K/mm3 (1.2-5.4) L 10/26/16 07:06 Abs React Lymphs (Man) 0.0 K/mm3 10/26/16 07:06 Monocytes # (Manual) 2.0 K/mm3 (0.0-0.8) H 10/26/16 07:06 Eosinophils # (Manual) 0.0 K/mm3 (0.0-0.4) 10/26/16 07:06 Basophils # (Manual) 0.0 K/mm3 (0.0-0.1) 10/26/16 07:06 Metamyelocytes # 0.0 K/mm3 10/26/16 07:06 Myelocytes # 0.0 K/mm3 10/26/16 07:06 Promyelocytes # 0.0 K/mm3 10/26/16 07:06 Blast Cells # 0.0 K/mm3 10/26/16 07:06 Pathologist Review 09/13/16 04:00 WBC Morphology Not Reportable 10/26/16 07:06 Hypersegmented Neuts Not Reportable 10/26/16 07:06 Hyposegmented Neuts Not Reportable 10/26/16 07:06 Hypogranular Neuts Not Reportable 10/26/16 07:06 Smudge Cells Not Reportable 10/26/16 07:06 Toxic Granulation Not Reportable 10/26/16 07:06 Toxic Vacuolation Not Reportable 10/26/16 07:06 Dohle Bodies Not Reportable 10/26/16 07:06 Pelger-Huet Anomaly Not Reportable 10/26/16 07:06 Jasmina Rods Not Reportable 10/26/16 07:06 Platelet Estimate Not Reportable 10/26/16 07:06 Clumped Platelets Not Reportable 10/26/16 07:06 Plt Clumps, EDTA Not Reportable 10/26/16 07:06 Large Platelets Not Reportable 10/26/16 07:06 Giant Platelets Not Reportable 10/26/16 07:06 Platelet Satelliting Not Reportable 10/26/16 07:06 Plt Morphology Comment Not Reportable 10/26/16 07:06 RBC Morphology Not Reportable 10/26/16 07:06 Dimorphic RBCs Not Reportable 10/26/16 07:06 Polychromasia Few 10/26/16 07:06 Hypochromasia Not Reportable 10/26/16 07:06 Poikilocytosis Not Reportable 10/26/16 07:06 Anisocytosis 1+ 10/26/16 07:06 Microcytosis Not Reportable 10/26/16 07:06 Macrocytosis Not Reportable 10/26/16 07:06 Spherocytes Not Reportable 10/26/16 07:06 Pappenheimer Bodies Not Reportable 10/26/16 07:06 Sickle Cells Not Reportable 10/26/16 07:06 Target Cells Not Reportable 10/26/16 07:06 Tear Drop Cells Not Reportable 10/26/16 07:06 Ovalocytes Not Reportable 10/26/16 07:06 Stomatocytes Few 10/06/16 03:50 Helmet Cells Not Reportable 10/26/16 07:06 [place] Bodies Not Reportable 10/26/16 07:06 [place] Rings Not Reportable 10/26/16 07:06 Chuck Cells Not Reportable 10/26/16 07:06 Bite Cells Not Reportable 10/26/16 07:06 Crenated Cell Not Reportable 10/26/16 07:06 Elliptocytes Not Reportable 10/26/16 07:06 Acanthocytes (Spur) Not Reportable 10/26/16 07:06 Rouleaux Not Reportable 10/26/16 07:06 Hemoglobin C Crystals Not Reportable 10/26/16 07:06 Schistocytes Not Reportable 10/26/16 07:06 Malaria parasites Not Reportable 10/26/16 07:06 ESR > 140.0 mm/Hr (0-20) 09/08/16 11:48 Jun Bodies Not Reportable 10/26/16 07:06 Hem Pathologist Commnt No 10/26/16 07:06 PT 19.0 Sec. (12.2-14.9) H 10/09/16 03:45 INR 1.51 (0.87-1.13) H 10/09/16 03:45 APTT 33.0 Sec. (24.2-36.6) 10/09/16 03:45 Thrombin Time 16.8 Sec. (15.1-19.6) 09/03/16 00:10 Fibrinogen 750 mg/dl (211-480) H 09/08/16 11:48 Lupus Anticoagulant see below 09/12/16 09:59 LA PTT Baseline See scanned report 09/12/16 09:59 dRVVT Confirm Interp Positive (Negative) H 09/12/16 09:59 dRVVT Screen 50:50 See scanned report 09/12/16 09:59 dRVVT Mix Interpret See scanned report 09/12/16 09:59 Protein C Antigen 122 % (70-140) 09/08/16 15:35 Free Protein S 97 % normal (50-147) 09/08/16 15:35 Total Protein S 109 % (70-140) 09/08/16 15:35 Antithrombin III Ag 100 % (80-120) 09/08/16 15:35 Heparin Anti-Xa, Unfract Negative (Negative) 09/29/16 13:35 Factor V Activity 182 % (65-150) H 09/08/16 15:35 POC ABG pH 7.561 (7.35-7.45) H 10/16/16 20:48 POC ABG pCO2 24.4 (35-45) L 10/16/16 20:48 POC ABG pO2 77 (80-105) L 10/16/16 20:48 POC ABG HCO3 21.9 10/16/16 20:48 POC ABG Total CO2 23 10/16/16 20:48 POC ABG O2 Sat 97 10/16/16 20:48 POC ABG Base Excess 0 10/16/16 20:48 FiO2 25 % 10/16/16 20:48 Sodium 135 mmol/L (137-145) L 10/26/16 07:06 Potassium 4.5 mmol/L (3.6-5.0) 10/26/16 07:06 Chloride 97.1 mmol/L (98-107) L 10/26/16 07:06 Carbon Dioxide 22 mmol/L (22-30) 10/26/16 07:06 Anion Gap 20 mmol/L 10/26/16 07:06 BUN 73 mg/dL (7-17) H 10/26/16 07:06 Creatinine 2.2 mg/dL (0.7-1.2) H 10/26/16 07:06 Estimated GFR 29 ml/min 10/26/16 07:06 BUN/Creatinine Ratio 33.18 % 10/26/16 07:06 Glucose 117 mg/dL (65-100) H 10/26/16 07:06 POC Glucose 123 (70-105) H 10/26/16 04:54 Osmolality 351 Mosm/kg 09/16/16 11:47 Lactic Acid 4.50 mmol/L (0.7-2.0) H* 09/28/16 07:25 Calcium 8.5 mg/dL (8.4-10.2) 10/26/16 07:06 Phosphorus 1.70 mg/dL (2.5-4.5) L 10/26/16 07:06 Magnesium 1.90 mg/dL (1.7-2.3) 10/26/16 07:06 Total Bilirubin 0.30 mg/dL (0.1-1.2) 10/17/16 04:24 Direct Bilirubin 0.3 mg/dL (0-0.2) H 10/10/16 05:00 Indirect Bilirubin 0.1 mg/dL 10/10/16 05:00 AST 39 units/L (5-40) 10/17/16 04:24 ALT 13 units/L (7-56) 10/17/16 04:24 Alkaline Phosphatase 138 units/L (35-129) H 10/17/16 04:24 Ammonia 27.0 umol/L (25-60) 09/07/16 08:37 Total Creatine Kinase 121 units/L (30-135) 09/29/16 20:12 CK-MB (CK-2) < 1.0 ng/mL (0.0-4.0) 09/29/16 20:12 CK-MB (CK-2) Rel Index 0.8 (0-4) 09/29/16 20:12 Troponin T 0.204 ng/mL (0.00-0.029) H* 09/29/16 20:12 C-Reactive Protein 15.80 mg/dL (0.00-1.30) H 10/11/16 04:15 Total Protein 6.2 g/dL (6.3-8.2) L 10/17/16 04:24 Albumin 1.5 g/dL (3.9-5) L 10/17/16 04:24 Albumin/Globulin Ratio 0.3 % 10/17/16 04:24 Triglycerides 137 mg/dL (2-149) 09/29/16 20:12 Cholesterol 31 mg/dL (50-199) L 09/29/16 20:12 LDL Cholesterol Direct 4 mg/dL (50-130) L 09/29/16 20:12 HDL Cholesterol 3 mg/dL (40-59) L 09/29/16 20:12 Cholesterol/HDL Ratio 10.33 % 09/29/16 20:12 Angiotensin Convert Enz See scanned report 09/08/16 11:48 Renin 0.99 ng/mL/h (0.25-5.82) 10/07/16 10:56 Aldosterone <1 ng/dL () 10/07/16 10:56 Aldosterone/Renin Dir see below 10/07/16 10:56 Serotonin Release Assay See scanned report 09/29/16 13:35 TSH 1.010 mlU/mL (0.270-4.200) 09/07/16 08:37 HCG, Qual Negative (Negative) 09/03/16 00:10 Urine Color [place] (Yellow) 10/07/16 18:30 Urine Turbidity Turbid (Clear) 10/07/16 18:30 Urine pH 7.0 (5.0-7.0) 10/07/16 18:30 Ur Specific Early 1.012 (1.003-1.030) 10/07/16 18:30 Urine Protein 100 mg/dl mg/dL (Negative) 10/07/16 18:30 Urine Glucose (UA) Neg mg/dL (Negative) 10/07/16 18:30 Urine Ketones Neg mg/dL (Negative) 10/07/16 18:30 Urine Blood Lg (Negative) 10/07/16 18:30 Urine Nitrite Neg (Negative) 10/07/16 18:30 Urine Bilirubin Neg (Negative) 10/07/16 18:30 Urine Urobilinogen < 2.0 mg/dL (<2.0) 10/07/16 18:30 Ur Leukocyte Esterase Lg (Negative) 10/07/16 18:30 Urine WBC (Auto) > 182.0 /HPF (0.0-6.0) H 10/07/16 18:30 Urine RBC (Auto) > 182.0 /HPF (0.0-6.0) 10/07/16 18:30 U Epithel Cells (Auto) 1.0 /HPF (0-13.0) 10/07/16 18:30 Urine Bacteria (Auto) 3+ /HPF (Negative) 10/07/16 18:30 Urine WBC Clumps 2+ /HPF 09/07/16 02:47 Hyaline Casts 4 /LPF 09/07/16 02:47 Urine Mucus Few /HPF 10/07/16 18:30 Urine Yeast (Budding) 3+ /HPF 10/07/16 18:30 Urine Eosinophils None seen (None Seen) 09/07/16 16:00 Urine Total Volume 1350 09/21/16 12:00 Urine Creatinine 54.8 mg/dL (0.1-20.0) H 09/21/16 12:00 Height (in) 67.0 inches 09/21/16 12:00 Weight (lb) 92.0 lbs 09/21/16 12:00 Creatinine Clearance 15 09/21/16 12:00 Urine Sodium 36 mEq/L 09/16/16 19:19 Urine Total Protein 16 mg/dL (5-11.8) H 09/16/16 19:19 Vancomycin Trough 2.3 ug/mL (5.0-20.0) L 09/21/16 13:00 Random Vancomycin 17.0 ug/mL (0-40.0) 10/20/16 06:00 Urine Opiates Screen Presumptive negative 09/03/16 15:11 Urine Methadone Screen Presumptive positive 09/03/16 15:11 Ur Barbiturates Screen Presumptive positive 09/03/16 15:11 Ur Phencyclidine Scrn Presumptive negative 09/03/16 15:11 Ur Amphetamines Screen Presumptive negative 09/03/16 15:11 U Benzodiazepines Scrn Presumptive negative 09/03/16 15:11 Urine Cocaine Screen Presumptive negative 09/03/16 15:11 U Marijuana (THC) Screen Presumptive positive 09/03/16 15:11 Drugs of Abuse Note Disclamer 09/03/16 15:11 Rheumatoid Factor 24 IU/ml (0-13) H 09/08/16 11:48 SAHIL Screen Negative (Negative) 09/07/16 09:20 Proteinase 3 (PR3) Ab <1.0 AI (<1.0) 09/07/16 09:20 Myeloperoxidase Ab <1.0 AI (<1.0) 09/07/16 09:20 Sjogren's Antibody <1.0 AI (<1.0) 09/08/16 15:35 Scl-70 Scleroderma Ab <1.0 AI (<1.0) 09/08/16 15:35 Centromere B Antibody <1.0 AI (<1.0) 09/08/16 12:02 Heparin-induced Plt Ab Negative (Negative) 09/29/16 13:35 UF Heparin High Dose 11 % Release 09/29/16 13:35 SUDHIR UFH Low Dose 0.1 6 % Release 09/29/16 13:35 SUDHIR UFH Low Dose 0.5 8 % Release 09/29/16 13:35 Cardiolipid IgG Ab <14 GPL (<=14) 09/12/16 09:59 Cardiolipid IgA Ab <11 APL (<=11) 09/12/16 09:59 Cardiolipid IgM Ab <12 MPL (<=12) 09/12/16 09:59 Complement C3 148 mg/dL (90-180) 09/07/16 09:20 Complement C4 58 mg/dL (16-47) H 09/07/16 09:20 RPR Nonreactive (Nonreactive) 09/08/16 11:48 Hepatitis A IgM Ab Non-reactive (NonReactive) 09/24/16 14:40 Hep Bs Antigen Non-reactive (Negative) 09/24/16 14:40 Hep B Core IgM Ab Non-reactive (NonReactive) 09/24/16 14:40 Hepatitis C Antibody Non-reactive (NonReactive) 09/24/16 14:40 HIV 1&2 Antibody Rapid Non react (Non React) 09/08/16 11:48 HIV P24 Antigen Non react (Non React) 09/08/16 11:48 Miscellaneous Test Flexitest 1 H 10/20/16 16:00 Blood Type A POSITIVE 10/24/16 Unknown Antibody Screen Negative 10/24/16 Unknown DELORIS Antibody Screen Negative 09/25/16 10:30 Crossmatch See Detail 10/24/16 Unknown
[2016-10-26] MEDS ORDERED: SIMPLE SYRUP FEEDTUBE PRN ×2 (16:12)
--- NOTE | 2016-10-26 16:12 | Progress Note ---
Assessment and Plan Will start tube feeds via the NG Continue with local wound care ATBX per ID Subjective Date of service: 10/26/16 Narrative: Remains intubated Objective Vital Signs - 12hr 10/26/16 10/26/16 10/26/16 04:13 04:30 05:01 Temperature Pulse Rate 123 H 126 H 126 H Pulse Rate [ From Monitor] Respiratory 23 23 Rate Blood Pressure 123/62 123/75 142/79 O2 Sat by Pulse 100 100 100 Oximetry O2 Sat by Pulse Oximetry [ Assessment] O2 Sat by Pulse Oximetry [ Bilateral Throughout] 10/26/16 10/26/16 10/26/16 05:31 06:01 06:31 Temperature Pulse Rate 127 H 125 H 127 H Pulse Rate [ From Monitor] Respiratory 19 19 20 Rate Blood Pressure 176/96 163/104 171/101 O2 Sat by Pulse 100 100 100 Oximetry O2 Sat by Pulse Oximetry [ Assessment] O2 Sat by Pulse Oximetry [ Bilateral Throughout] 10/26/16 10/26/16 10/26/16 06:40 07:01 07:31 Temperature Pulse Rate 113 H 117 H 118 H Pulse Rate [ From Monitor] Respiratory 16 18 Rate Blood Pressure 171/101 160/80 163/109 O2 Sat by Pulse 100 100 Oximetry O2 Sat by Pulse Oximetry [ Assessment] O2 Sat by Pulse Oximetry [ Bilateral Throughout] 10/26/16 10/26/16 10/26/16 07:58 08:00 08:01 Temperature 99.6 F Pulse Rate 119 H 120 H Pulse Rate [ 120 H From Monitor] Respiratory 23 23 Rate Blood Pressure 158/110 158/110 O2 Sat by Pulse 100 100 100 Oximetry O2 Sat by Pulse 99 Oximetry [ Assessment] O2 Sat by Pulse Oximetry [ Bilateral Throughout] 10/26/16 10/26/16 10/26/16 08:31 09:01 09:20 Temperature Pulse Rate 121 H 124 H Pulse Rate [ From Monitor] Respiratory 27 H 25 H Rate Blood Pressure 158/110 158/110 O2 Sat by Pulse 100 96 100 Oximetry O2 Sat by Pulse Oximetry [ Assessment] O2 Sat by Pulse Oximetry [ Bilateral Throughout] 10/26/16 10/26/16 10/26/16 09:22 09:31 10:00 Temperature Pulse Rate 122 H 127 H 115 H Pulse Rate [ From Monitor] Respiratory 16 Rate Blood Pressure 179/107 191/104 O2 Sat by Pulse 99 Oximetry O2 Sat by Pulse Oximetry [ Assessment] O2 Sat by Pulse Oximetry [ Bilateral Throughout] 10/26/16 10/26/16 10/26/16 10:01 10:30 11:01 Temperature Pulse Rate 115 H 120 H 123 H Pulse Rate [ From Monitor] Respiratory 23 26 H 29 H Rate Blood Pressure 156/95 173/97 187/100 O2 Sat by Pulse 99 99 Oximetry O2 Sat by Pulse Oximetry [ Assessment] O2 Sat by Pulse Oximetry [ Bilateral Throughout] 10/26/16 10/26/16 10/26/16 11:31 12:00 12:01 Temperature 99.6 F Pulse Rate 125 H 127 H Pulse Rate [ 127 H From Monitor] Respiratory 33 H 36 H 36 H Rate Blood Pressure 176/101 186/103 O2 Sat by Pulse 99 99 99 Oximetry O2 Sat by Pulse Oximetry [ Assessment] O2 Sat by Pulse Oximetry [ Bilateral Throughout] 10/26/16 10/26/16 10/26/16 12:31 13:00 13:15 Temperature 99.6 F Pulse Rate 127 H 123 H 123 H Pulse Rate [ From Monitor] Respiratory 38 H 44 H Rate Blood Pressure 183/105 187/104 187/104 O2 Sat by Pulse 100 Oximetry O2 Sat by Pulse Oximetry [ Assessment] O2 Sat by Pulse 100 Oximetry [ Bilateral Throughout] 10/26/16 10/26/16 10/26/16 13:17 13:30 13:45 Temperature Pulse Rate 131 H 124 H 125 H Pulse Rate [ From Monitor] Respiratory Rate Blood Pressure 184/105 188/108 190/105 O2 Sat by Pulse Oximetry O2 Sat by Pulse Oximetry [ Assessment] O2 Sat by Pulse Oximetry [ Bilateral Throughout] 10/26/16 10/26/16 10/26/16 14:07 14:15 14:27 Temperature Pulse Rate 127 H 127 H Pulse Rate [ From Monitor] Respiratory Rate Blood Pressure 198/110 192/111 O2 Sat by Pulse 100 Oximetry O2 Sat by Pulse Oximetry [ Assessment] O2 Sat by Pulse Oximetry [ Bilateral Throughout] 10/26/16 10/26/16 10/26/16 14:30 14:45 15:00 Temperature Pulse Rate 127 H 127 H 127 H Pulse Rate [ From Monitor] Respiratory Rate Blood Pressure 190/114 197/116 190/115 O2 Sat by Pulse Oximetry O2 Sat by Pulse Oximetry [ Assessment] O2 Sat by Pulse Oximetry [ Bilateral Throughout] 10/26/16 10/26/16 10/26/16 15:15 15:30 15:35 Temperature 100.6 F H Pulse Rate 129 H 129 H Pulse Rate [ From Monitor] Respiratory Rate Blood Pressure 196/121 204/117 O2 Sat by Pulse Oximetry O2 Sat by Pulse 98 Oximetry [ Assessment] O2 Sat by Pulse Oximetry [ Bilateral Throughout] 10/26/16 10/26/16 15:45 16:00 Temperature Pulse Rate 130 H 131 H Pulse Rate [ From Monitor] Respiratory Rate Blood Pressure 190/109 177/95 O2 Sat by Pulse 98 Oximetry O2 Sat by Pulse Oximetry [ Assessment] O2 Sat by Pulse Oximetry [ Bilateral Throughout] - Abdomen soft, not distended, wound (Still draining purulent fluid. No cellulitis of the abdominal wall) - Labs 10/26/16 07:06 10/26/16 07:06 Diabetes panel 10/26/16 Range/Units 07:06 Sodium 135 L (137-145) mmol/L Potassium 4.5 (3.6-5.0) mmol/L Chloride 97.1 L (98-107) mmol/L Carbon Dioxide 22 (22-30) mmol/L BUN 73 H (7-17) mg/dL Creatinine 2.2 H (0.7-1.2) mg/dL Glucose 117 H (65-100) mg/dL Calcium 8.5 (8.4-10.2) mg/dL Calcium panel 10/26/16 Range/Units 07:06 Calcium 8.5 (8.4-10.2) mg/dL Phosphorus 1.70 L (2.5-4.5) mg/dL Pituitary panel 10/26/16 Range/Units 07:06 Sodium 135 L (137-145) mmol/L Potassium 4.5 (3.6-5.0) mmol/L Chloride 97.1 L (98-107) mmol/L Carbon Dioxide 22 (22-30) mmol/L BUN 73 H (7-17) mg/dL Creatinine 2.2 H (0.7-1.2) mg/dL Glucose 117 H (65-100) mg/dL Calcium 8.5 (8.4-10.2) mg/dL Adrenal panel 10/26/16 Range/Units 07:06 Sodium 135 L (137-145) mmol/L Potassium 4.5 (3.6-5.0) mmol/L Chloride 97.1 L (98-107) mmol/L Carbon Dioxide 22 (22-30) mmol/L BUN 73 H (7-17) mg/dL Creatinine 2.2 H (0.7-1.2) mg/dL Glucose 117 H (65-100) mg/dL Calcium 8.5 (8.4-10.2) mg/dL
[2016-10-26] MEDS: HEPARIN IV PRN (17:45)
[2016-10-26] MEDS: DIFLUCAN 200 MG/100 ML BAG IV SCH (17:58)
[2016-10-26] MEDS ORDERED: TPN ADULT 2,016 ML IV SCH (20:00)
[2016-10-26] MEDS ORDERED: INTRALIPID 20% 250 ML IV SCH (20:00)
[2016-10-27] MEDS: HumuLIN R SUB-Q SCH ×4 (00:11→18:31)
[2016-10-27] MEDS: LOPRESSOR IV SCH ×6 (01:18→21:58)
[2016-10-27] MEDS: APRESOLINE IV PRN ×4 (03:25→20:34)
[2016-10-27] MEDS: ZOSYN/NS 2.25 GM/50ML 2.25 GM/50 ML BAG IV SCH ×3 (06:17→21:53)
[2016-10-27 06:35] LABS: Hematocrit 27.5 % (30.3-42.9); Hemoglobin 9.2 gm/dl (10.1-14.3); Mean Corpuscular HGB Conc 34 % (30-34); Mean Corpuscular Hemoglobin 30 pg (28-32); Mean Corpuscular Volume 89 fl (79-97); Platelet Count 364 K/mm3 (140-440); Red Blood Count 3.09 M/mm3 (3.65-5.03)
[2016-10-27 06:59] LABS: BUN/Creatinine Ratio 26.66; Calcium 8.3 mg/dL (8.4-10.2)
[2016-10-27] MEDS ORDERED: SODIUM PHOSPHATE IV ONE (08:00)
[2016-10-27] MEDS ORDERED: NACL 0.9% IV ONE (08:00)
[2016-10-27 08:04] LABS: Eosinophils % (Manual) 0 % (0.0-4.3); Total Cells Counted 100
[2016-10-27 08:05] LABS: Anisocytosis 1+; Large Platelets Few
[2016-10-27 08:06] LABS: Platelet Estimate Cons
--- NOTE | 2016-10-27 08:47 | Progress Note ---
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 Although her serum creatinine noted to be lower, she needs to be maintained on dialysis for now . No evidence of renal recovery at this time. Shall keep her on Mondays, Wednesdays and Fridays schedule for now * Transfuse available blood products with dialysis as needed * Rate control per cardiology * Abx/antifungal per ID * Vent management per critical care * Dose medications for renal function * Avoid potential nephrotoxins * Patient is still with a Vas-Cath. She needs it to be converted to a PermCath Subjective Date of service: 10/27/16 Principal diagnosis: Acute resp failure on MVS; S/P Acute CVA; Acute Encephalopathy; JUANITA Interval history: Patient remains in the intensive care unit. Remains on the ventilator. On 30% FiO2. Opens her eyes. She is receiving TPN currently. A Hern[place] catheter as well as rectal tube is in place Objective - Vital Signs Vital signs: Vital Signs - 12hr 10/26/16 10/26/16 10/26/16 21:00 21:30 22:01 Temperature Pulse Rate 119 H 122 H 128 H Pulse Rate [ From Monitor] Respiratory 25 H 26 H 26 H Rate Respiratory Rate [ Generalized] Blood Pressure 175/110 158/98 169/107 O2 Sat by Pulse 99 100 100 Oximetry 10/26/16 10/26/16 10/26/16 22:31 23:01 23:25 Temperature 101.2 F H Pulse Rate 129 H 128 H Pulse Rate [ From Monitor] Respiratory 28 H 26 H Rate Respiratory Rate [ Generalized] Blood Pressure 167/108 174/110 O2 Sat by Pulse 100 100 Oximetry 10/26/16 10/26/16 10/27/16 23:31 23:52 00:01 Temperature Pulse Rate 132 H 133 H 134 H Pulse Rate [ From Monitor] Respiratory 25 H 27 H Rate Respiratory Rate [ Generalized] Blood Pressure 173/108 171/112 181/111 O2 Sat by Pulse 100 100 100 Oximetry 10/27/16 10/27/16 10/27/16 00:31 01:01 01:18 Temperature Pulse Rate 129 H 131 H 118 H Pulse Rate [ From Monitor] Respiratory 26 H 26 H Rate Respiratory Rate [ Generalized] Blood Pressure 181/111 186/109 187/113 O2 Sat by Pulse 100 100 Oximetry 10/27/16 10/27/16 10/27/16 01:30 02:00 02:31 Temperature Pulse Rate 122 H 123 H 127 H Pulse Rate [ From Monitor] Respiratory 26 H 29 H 34 H Rate Respiratory Rate [ Generalized] Blood Pressure 188/128 177/115 190/116 O2 Sat by Pulse 99 100 95 Oximetry 10/27/16 10/27/16 10/27/16 03:00 03:31 03:36 Temperature Pulse Rate 126 H 130 H 129 H Pulse Rate [ From Monitor] Respiratory 30 H 30 H Rate Respiratory Rate [ Generalized] Blood Pressure 188/118 183/108 183/108 O2 Sat by Pulse 100 95 96 Oximetry 10/27/16 10/27/16 10/27/16 03:46 04:00 04:01 Temperature 100.5 F H Pulse Rate 129 H Pulse Rate [ 129 H From Monitor] Respiratory 28 H 28 H Rate Respiratory Rate [ Generalized] Blood Pressure 183/108 O2 Sat by Pulse 100 100 Oximetry 10/27/16 10/27/16 10/27/16 04:31 05:01 05:30 Temperature Pulse Rate 128 H 115 H Pulse Rate [ From Monitor] Respiratory 27 H 27 H Rate Respiratory Rate [ Generalized] Blood Pressure 173/104 186/110 210/135 O2 Sat by Pulse 100 99 Oximetry 10/27/16 10/27/16 10/27/16 06:00 06:30 07:00 Temperature Pulse Rate 116 H 120 H 121 H Pulse Rate [ From Monitor] Respiratory 27 H 29 H 26 H Rate Respiratory 28 H Rate [ Generalized] Blood Pressure 213/119 204/107 194/106 O2 Sat by Pulse 100 100 Oximetry 10/27/16 10/27/16 10/27/16 07:30 07:33 07:39 Temperature 98.9 F Pulse Rate 123 H 120 H Pulse Rate [ From Monitor] Respiratory 25 H Rate Respiratory Rate [ Generalized] Blood Pressure 176/106 O2 Sat by Pulse 100 Oximetry 10/27/16 08:36 Temperature Pulse Rate Pulse Rate [ From Monitor] Respiratory Rate Respiratory Rate [ Generalized] Blood Pressure O2 Sat by Pulse 100 Oximetry - General Appearance General appearance: well-developed, well-nourished, appears stated age, intubated EENT: PERRL, mucous membranes moist Neck: no JVD, no thyromegaly, other (on the ventilator via tracheostomy tube. Right IJ Vas-Cath in place) Respiratory: Present: Ronchi (few scattered rhonchi) Cardiology: regular, normal heart rate, S1S2, no murmurs Gastrointestinal: normoactive bowel sounds Integumentary: other (1+ edema) - Lab 10/27/16 06:30 10/27/16 06:30 Most recent lab results Calcium 8.3 mg/dL (8.4-10.2) L 10/27/16 06:30 Phosphorus 1.30 mg/dL (2.5-4.5) L D 10/27/16 06:30 Magnesium 1.70 mg/dL (1.7-2.3) 10/27/16 06:30 Urine Creatinine 54.8 mg/dL (0.1-20.0) H 09/21/16 12:00 Urine Sodium 36 mEq/L 09/16/16 19:19 Urine Total Protein 16 mg/dL (5-11.8) H 09/16/16 19:19
--- NOTE | 2016-10-27 09:06 | Event Note ---
Date: 10/27/16 Pt has been accepted to [facility], so conversion of her vascath to permacath has been requested.
[2016-10-27] MEDS: PROTONIX IV SCH (09:30)
--- NOTE | 2016-10-27 09:40 | Progress Note ---
Assessment and Plan (1) Acute respiratory failure with hypoxia Current Visit: Yes Status: Acute Plan to address problem: - continue aspiration precautions - continue to wean oxygen for MAP > 94% - continue bronchodilators and pulmonary toilet - s/p tracheostomy - on T-piece and tolerating well now - will shoot for RTC T-piece (2) Acute CVA (cerebrovascular accident) Current Visit: Yes Status: Acute Plan to address problem: - out of tpA window (initially stopped due to uncontrolled HTN) - Left MCA teritory stroke with some midline shift on last CT - seen by neurology and prognosis for recovery of mental status guarded to poor - optimizing secondary prevention modalities now (BP, lipid anti-platelet therapy) - off systemic steroids now (started earlier for edema) - clinically about the same (3) Hypertensive emergency Current Visit: Yes Status: Acute Plan to address problem: - stopped all antihypertensives while septic prior - following clinically - on scheduled IV metoprolol with prn IV hydralazine (4) Obesity (BMI 35.0-39.9 without comorbidity) Current Visit: Yes Status: Chronic Plan to address problem: - nutrition consult placed for enteral formulation - on TPN now - following clinically (5) Type 2 diabetes mellitus Current Visit: Yes Status: Chronic Qualifiers: Diabetes mellitus complication status: D Diabetes mellitus complication detail: D Diabetic retinopathy severity: D Proliferative retinopathy type: P Diabetes mellitus macular edema: D Diabetes mellitus rv mechanic insulin use : D Laterality: L Chronic kidney disease stage: C Plan to address problem: - continue SSI - discontinued lantus re: hypoglycemia - target BG's <180 mg/dl (6) Leukocytosis (leucocytosis) Current Visit: Yes Status: Acute Qualifiers: Leukocytosis type: leukemoid reaction Qualified Code(s): D72.823 - Leukemoid reaction Plan to address problem: - completed cancidas and de-escalate per ID recs - leucocytosis persistent but now trending down - on zosyn and diflucan now - wound cultures growing pseudomonas and dann (7) Agitation Current Visit: Yes Status: Acute Plan to address problem: - prn sedation / analgesia - tapered off seroquel for now (8) Atrial fibrillation Current Visit: Yes Status: Acute Qualifiers: Atrial fibrillation type: A Plan to address problem: - failed cardioversion earlier - cardiology evaluation ongoing - back in A-fib - continue amiodarone drip (change to p.o. once tolerating enterally) - on IV metoprolol scheduled re: HTN & tachycardia (9) JUANITA (acute kidney injury) Current Visit: Yes Status: Acute Plan to address problem: - on Dialysis now - continue HD/UF per nephrology recommendations - for tunnelled vas-cath today (10) Pyrexia of unknown origin Current Visit: Yes Status: Acute Plan to address problem: - dopplers negative for DVT - continue to treat with Anti-infectives (11) Severe sepsis Current Visit: Yes Status: Acute Plan to address problem: - resume vasopressors for MAP < 60mmHg not responsive to volume - all central vascular access has been discontinued after fungemia reported - care plan formulated with ID input - BC's from 09/27/16 growing in 1of 2 but still no ID yet - coomplete micafungin per ID recs and stop date - wound care nurse also managing back wounds - clinically stable and hemodynamically improved - bo to RLQ incision removed and wound drained and packed - on contact precautions for MDRO PSAR (12) Emesis Current Visit: Yes Status: Acute Qualifiers: Vomiting type: V Vomiting Intractability: V Nausea presence: N Plan to address problem: - s/p surgical repair of gastric perforation - continue TPN for now - follow surgery recommendations re: feeding and new PEG tube (13) Discharge planning issues Current Visit: Yes Status: Acute Plan to address problem: - she remains critically ill on life sustaining interventions including MVS and at risk for further acute deterioration including .....35' CCT ....rv mechanic prognosis is guarded Subjective Date of service: 10/27/16 Principal diagnosis: Acute resp failure on MVS; S/P Acute CVA; Acute Encephalopathy; JUANITA Interval history: Seen and examined at bedside; 24 hour events reviewed; nursing and respiratory care staff consulted; no adverse overnight events reported to me; going down for tunnelled vas-cath placement; AMS is persistent; remains on TPN; remains dialysis dependent; no emesis or overt aspiration and no gross bleeding Objective Vital Signs - 12hr 10/26/16 10/26/16 10/26/16 22:01 22:31 23:01 Temperature Pulse Rate 128 H 129 H 128 H Pulse Rate [ From Monitor] Respiratory 26 H 28 H 26 H Rate Respiratory Rate [ Generalized] Blood Pressure 169/107 167/108 174/110 O2 Sat by Pulse 100 100 100 Oximetry 10/26/16 10/26/16 10/26/16 23:25 23:31 23:52 Temperature 101.2 F H Pulse Rate 132 H 133 H Pulse Rate [ From Monitor] Respiratory 25 H Rate Respiratory Rate [ Generalized] Blood Pressure 173/108 171/112 O2 Sat by Pulse 100 100 Oximetry 10/27/16 10/27/16 10/27/16 00:01 00:31 01:01 Temperature Pulse Rate 134 H 129 H 131 H Pulse Rate [ From Monitor] Respiratory 27 H 26 H 26 H Rate Respiratory Rate [ Generalized] Blood Pressure 181/111 181/111 186/109 O2 Sat by Pulse 100 100 100 Oximetry 10/27/16 10/27/16 10/27/16 01:18 01:30 02:00 Temperature Pulse Rate 118 H 122 H 123 H Pulse Rate [ From Monitor] Respiratory 26 H 29 H Rate Respiratory Rate [ Generalized] Blood Pressure 187/113 188/128 177/115 O2 Sat by Pulse 99 100 Oximetry 10/27/16 10/27/16 10/27/16 02:31 03:00 03:31 Temperature Pulse Rate 127 H 126 H 130 H Pulse Rate [ From Monitor] Respiratory 34 H 30 H 30 H Rate Respiratory Rate [ Generalized] Blood Pressure 190/116 188/118 183/108 O2 Sat by Pulse 95 100 95 Oximetry 10/27/16 10/27/16 10/27/16 03:36 03:46 04:00 Temperature 100.5 F H Pulse Rate 129 H Pulse Rate [ 129 H From Monitor] Respiratory 28 H Rate Respiratory Rate [ Generalized] Blood Pressure 183/108 O2 Sat by Pulse 96 100 Oximetry 10/27/16 10/27/16 10/27/16 04:01 04:31 05:01 Temperature Pulse Rate 129 H 128 H 115 H Pulse Rate [ From Monitor] Respiratory 28 H 27 H 27 H Rate Respiratory Rate [ Generalized] Blood Pressure 183/108 173/104 186/110 O2 Sat by Pulse 100 100 99 Oximetry 10/27/16 10/27/16 10/27/16 05:30 06:00 06:30 Temperature Pulse Rate 116 H 120 H Pulse Rate [ From Monitor] Respiratory 27 H 29 H Rate Respiratory 28 H Rate [ Generalized] Blood Pressure 210/135 213/119 204/107 O2 Sat by Pulse 100 Oximetry 10/27/16 10/27/16 10/27/16 07:00 07:30 07:33 Temperature Pulse Rate 121 H 123 H 120 H Pulse Rate [ From Monitor] Respiratory 26 H 25 H Rate Respiratory Rate [ Generalized] Blood Pressure 194/106 176/106 O2 Sat by Pulse 100 100 Oximetry 10/27/16 10/27/16 10/27/16 07:39 08:36 09:30 Temperature 98.9 F Pulse Rate 123 H Pulse Rate [ From Monitor] Respiratory Rate Respiratory Rate [ Generalized] Blood Pressure 185/106 O2 Sat by Pulse 100 Oximetry Constitutional: no acute distress, other (eyes open; not tracking movements) Eyes: non-icteric, other (tracheostomy tube in midline of neck) ENT: oropharynx moist Neck: supple, no lymphadenopathy Effort: mildly labored Ascultation: Bilateral: diminished breath sounds (bases), rhonchi Cardiovascular: regular rate and rhythm Gastrointestinal: hypoactive bowel sounds, soft, non-tender, non-distended, other (RLQ wound dressed\) Integumentary: other (erythema to skin of back with some healing areas; no obvious TEN's features) Extremities: no cyanosis, no edema, pulses normal, no ischemia or petechiae Neurologic: pupils equal and round, other (sedated) Psychiatric: other (unable to assess) CBC and BMP: 10/27/16 06:30 10/27/16 06:30 ABG, PT/INR, D-dimer: ABG POC ABG pH 7.561 (7.35-7.45) H 10/16/16 20:48 POC ABG pCO2 24.4 (35-45) L 10/16/16 20:48 POC ABG pO2 77 (80-105) L 10/16/16 20:48 POC ABG HCO3 21.9 10/16/16 20:48 POC ABG Total CO2 23 10/16/16 20:48 POC ABG O2 Sat 97 10/16/16 20:48 PT/INR, D-dimer PT 19.0 Sec. (12.2-14.9) H 10/09/16 03:45 INR 1.51 (0.87-1.13) H 10/09/16 03:45 Abnormal lab findings: Abnormal Labs 09/03/16 09/03/16 09/03/16 12:12 15:07 16:20 WBC RBC Hgb Hct MCV MCH MCHC RDW Plt Count Lymph % (Auto) [place] % (Auto) Lymph # [place] # Baso # Seg Neutrophils % Seg Neuts % (Manual) Lymphocytes % (Manual) Monocytes % (Manual) Eosinophils % (Manual) Basophils % (Manual) Nucleated RBC % Seg Neutrophils # Seg Neutrophils # Man Lymphocytes # (Manual) Monocytes # (Manual) Eosinophils # (Manual) PT INR Fibrinogen dRVVT Confirm Interp Factor V Activity POC ABG pH 7.452 H POC ABG pCO2 POC ABG pO2 Sodium Potassium Chloride Carbon Dioxide BUN Creatinine Glucose POC Glucose 178 H Lactic Acid Calcium Phosphorus 2.20 L Magnesium 1.60 L Direct Bilirubin ALT Alkaline Phosphatase Troponin T C-Reactive Protein Total Protein Albumin Triglycerides Cholesterol LDL Cholesterol Direct HDL Cholesterol Urine WBC (Auto) Urine Creatinine Urine Total Protein Vancomycin Trough Rheumatoid Factor Complement C4 Miscellaneous Test Crossmatch 09/03/16 09/03/16 09/03/16 17:57 17:58 23:50 WBC RBC Hgb Hct MCV MCH MCHC RDW Plt Count Lymph % (Auto) [place] % (Auto) Lymph # [place] # Baso # Seg Neutrophils % Seg Neuts % (Manual) Lymphocytes % (Manual) Monocytes % (Manual) Eosinophils % (Manual) Basophils % (Manual) Nucleated RBC % Seg Neutrophils # Seg Neutrophils # Man Lymphocytes # (Manual) Monocytes # (Manual) Eosinophils # (Manual) PT INR Fibrinogen dRVVT Confirm Interp Factor V Activity POC ABG pH POC ABG pCO2 POC ABG pO2 Sodium Potassium Chloride Carbon Dioxide BUN Creatinine Glucose POC Glucose 162 H 145 H Lactic Acid Calcium Phosphorus 2.30 L Magnesium Direct Bilirubin ALT Alkaline Phosphatase Troponin T C-Reactive Protein Total Protein Albumin Triglycerides Cholesterol LDL Cholesterol Direct HDL Cholesterol Urine WBC (Auto) Urine Creatinine Urine Total Protein Vancomycin Trough Rheumatoid Factor Complement C4 Miscellaneous Test Crossmatch 09/04/16 09/04/16 09/04/16 03:31 03:31 05:42 WBC RBC Hgb 9.7 L D Hct MCV 72 L MCH 23 L MCHC RDW 17.5 H Plt Count Lymph % (Auto) 11.1 L [place] % (Auto) Lymph # [place] # Baso # Seg Neutrophils % 84.3 H Seg Neuts % (Manual) Lymphocytes % (Manual) Monocytes % (Manual) Eosinophils % (Manual) Basophils % (Manual) Nucleated RBC % Seg Neutrophils # 8.9 H Seg Neutrophils # Man Lymphocytes # (Manual) Monocytes # (Manual) Eosinophils # (Manual) PT INR Fibrinogen dRVVT Confirm Interp Factor V Activity POC ABG pH POC ABG pCO2 POC ABG pO2 Sodium 135 L Potassium 2.9 L* Chloride 97.2 L Carbon Dioxide 19 L BUN Creatinine 1.7 H Glucose 170 H POC Glucose 152 H Lactic Acid Calcium Phosphorus Magnesium Direct Bilirubin ALT Alkaline Phosphatase Troponin T C-Reactive Protein Total Protein Albumin Triglycerides 160 H Cholesterol LDL Cholesterol Direct HDL Cholesterol 31 L Urine WBC (Auto) Urine Creatinine Urine Total Protein Vancomycin Trough Rheumatoid Factor Complement C4 Miscellaneous Test Crossmatch 09/04/16 09/04/16 09/04/16 11:34 17:46 23:29 WBC RBC Hgb Hct MCV MCH MCHC RDW Plt Count Lymph % (Auto) [place] % (Auto) Lymph # [place] # Baso # Seg Neutrophils % Seg Neuts % (Manual) Lymphocytes % (Manual) Monocytes % (Manual) Eosinophils % (Manual) Basophils % (Manual) Nucleated RBC % Seg Neutrophils # Seg Neutrophils # Man Lymphocytes # (Manual) Monocytes # (Manual) Eosinophils # (Manual) PT INR Fibrinogen dRVVT Confirm Interp Factor V Activity POC ABG pH POC ABG pCO2 POC ABG pO2 Sodium Potassium Chloride Carbon Dioxide BUN Creatinine Glucose POC Glucose 165 H 210 H 139 H Lactic Acid Calcium Phosphorus Magnesium Direct Bilirubin ALT Alkaline Phosphatase Troponin T C-Reactive Protein Total Protein Albumin Triglycerides Cholesterol LDL Cholesterol Direct HDL Cholesterol Urine WBC (Auto) Urine Creatinine Urine Total Protein Vancomycin Trough Rheumatoid Factor Complement C4 Miscellaneous Test Crossmatch 09/05/16 09/05/16 09/05/16 04:05 04:05 05:38 WBC RBC Hgb Hct MCV 76 L D MCH 23 L MCHC RDW 17.8 H Plt Count Lymph % (Auto) [place] % (Auto) Lymph # [place] # Baso # Seg Neutrophils % Seg Neuts % (Manual) Lymphocytes % (Manual) Monocytes % (Manual) Eosinophils % (Manual) Basophils % (Manual) Nucleated RBC % Seg Neutrophils # Seg Neutrophils # Man Lymphocytes # (Manual) Monocytes # (Manual) Eosinophils # (Manual) PT INR Fibrinogen dRVVT Confirm Interp Factor V Activity POC ABG pH POC ABG pCO2 POC ABG pO2 Sodium 134 L Potassium Chloride Carbon Dioxide 18 L BUN Creatinine 1.8 H Glucose 192 H POC Glucose 175 H Lactic Acid Calcium Phosphorus Magnesium Direct Bilirubin ALT Alkaline Phosphatase Troponin T C-Reactive Protein Total Protein Albumin Triglycerides Cholesterol LDL Cholesterol Direct HDL Cholesterol Urine WBC (Auto) Urine Creatinine Urine Total Protein Vancomycin Trough Rheumatoid Factor Complement C4 Miscellaneous Test Crossmatch 09/05/16 09/05/16 09/05/16 11:38 17:48 23:22 WBC RBC Hgb Hct MCV MCH MCHC RDW Plt Count Lymph % (Auto) [place] % (Auto) Lymph # [place] # Baso # Seg Neutrophils % Seg Neuts % (Manual) Lymphocytes % (Manual) Monocytes % (Manual) Eosinophils % (Manual) Basophils % (Manual) Nucleated RBC % Seg Neutrophils # Seg Neutrophils # Man Lymphocytes # (Manual) Monocytes # (Manual) Eosinophils # (Manual) PT INR Fibrinogen dRVVT Confirm Interp Factor V Activity POC ABG pH POC ABG pCO2 POC ABG pO2 Sodium Potassium Chloride Carbon Dioxide BUN Creatinine Glucose POC Glucose 164 H 186 H 195 H Lactic Acid Calcium Phosphorus Magnesium Direct Bilirubin ALT Alkaline Phosphatase Troponin T C-Reactive Protein Total Protein Albumin Triglycerides Cholesterol LDL Cholesterol Direct HDL Cholesterol Urine WBC (Auto) Urine Creatinine Urine Total Protein Vancomycin Trough Rheumatoid Factor Complement C4 Miscellaneous Test Crossmatch 09/06/16 09/06/16 09/06/16 04:12 05:59 07:32 WBC RBC Hgb Hct MCV MCH MCHC RDW Plt Count Lymph % (Auto) [place] % (Auto) Lymph # [place] # Baso # Seg Neutrophils % Seg Neuts % (Manual) Lymphocytes % (Manual) Monocytes % (Manual) Eosinophils % (Manual) Basophils % (Manual) Nucleated RBC % Seg Neutrophils # Seg Neutrophils # Man Lymphocytes # (Manual) Monocytes # (Manual) Eosinophils # (Manual) PT INR Fibrinogen dRVVT Confirm Interp Factor V Activity POC ABG pH 7.514 H POC ABG pCO2 29.1 L POC ABG pO2 72 L Sodium 133 L Potassium 3.4 L Chloride 94.9 L Carbon Dioxide 19 L BUN 30 H Creatinine 2.1 H Glucose 139 H POC Glucose 146 H Lactic Acid Calcium Phosphorus Magnesium Direct Bilirubin ALT Alkaline Phosphatase Troponin T C-Reactive Protein Total Protein Albumin Triglycerides Cholesterol LDL Cholesterol Direct HDL Cholesterol Urine WBC (Auto) Urine Creatinine Urine Total Protein Vancomycin Trough Rheumatoid Factor Complement C4 Miscellaneous Test Crossmatch 09/06/16 09/06/16 09/06/16 11:57 17:58 19:02 WBC RBC Hgb Hct MCV MCH MCHC RDW Plt Count Lymph % (Auto) [place] % (Auto) Lymph # [place] # Baso # Seg Neutrophils % Seg Neuts % (Manual) Lymphocytes % (Manual) Monocytes % (Manual) Eosinophils % (Manual) Basophils % (Manual) Nucleated RBC % Seg Neutrophils # Seg Neutrophils # Man Lymphocytes # (Manual) Monocytes # (Manual) Eosinophils # (Manual) PT INR Fibrinogen dRVVT Confirm Interp Factor V Activity POC ABG pH 7.465 H POC ABG pCO2 32.0 L POC ABG pO2 Sodium Potassium Chloride Carbon Dioxide BUN Creatinine Glucose POC Glucose 165 H 160 H Lactic Acid Calcium Phosphorus Magnesium Direct Bilirubin ALT Alkaline Phosphatase Troponin T C-Reactive Protein Total Protein Albumin Triglycerides Cholesterol LDL Cholesterol Direct HDL Cholesterol Urine WBC (Auto) Urine Creatinine Urine Total Protein Vancomycin Trough Rheumatoid Factor Complement C4 Miscellaneous Test Crossmatch 09/06/16 09/07/16 09/07/16 23:45 02:47 02:47 WBC RBC Hgb Hct MCV MCH MCHC RDW Plt Count Lymph % (Auto) [place] % (Auto) Lymph # [place] # Baso # Seg Neutrophils % Seg Neuts % (Manual) Lymphocytes % (Manual) Monocytes % (Manual) Eosinophils % (Manual) Basophils % (Manual) Nucleated RBC % Seg Neutrophils # Seg Neutrophils # Man Lymphocytes # (Manual) Monocytes # (Manual) Eosinophils # (Manual) PT INR Fibrinogen dRVVT Confirm Interp Factor V Activity POC ABG pH POC ABG pCO2 POC ABG pO2 Sodium Potassium Chloride Carbon Dioxide BUN Creatinine Glucose POC Glucose 204 H Lactic Acid Calcium Phosphorus Magnesium Direct Bilirubin ALT Alkaline Phosphatase Troponin T C-Reactive Protein Total Protein Albumin Triglycerides Cholesterol LDL Cholesterol Direct HDL Cholesterol Urine WBC (Auto) 68.0 H Urine Creatinine 106.1 H Urine Total Protein Vancomycin Trough Rheumatoid Factor Complement C4 Miscellaneous Test Crossmatch 09/07/16 09/07/16 09/07/16 04:50 06:19 06:39 WBC RBC Hgb Hct MCV MCH MCHC RDW Plt Count Lymph % (Auto) [place] % (Auto) Lymph # [place] # Baso # Seg Neutrophils % Seg Neuts % (Manual) Lymphocytes % (Manual) Monocytes % (Manual) Eosinophils % (Manual) Basophils % (Manual) Nucleated RBC % Seg Neutrophils # Seg Neutrophils # Man Lymphocytes # (Manual) Monocytes # (Manual) Eosinophils # (Manual) PT INR Fibrinogen dRVVT Confirm Interp Factor V Activity POC ABG pH 7.457 H POC ABG pCO2 32.1 L POC ABG pO2 76 L Sodium 132 L Potassium Chloride 94.7 L Carbon Dioxide BUN 53 H Creatinine 2.9 H Glucose 151 H POC Glucose 149 H Lactic Acid Calcium Phosphorus Magnesium Direct Bilirubin ALT Alkaline Phosphatase Troponin T C-Reactive Protein Total Protein Albumin Triglycerides Cholesterol LDL Cholesterol Direct HDL Cholesterol Urine WBC (Auto) Urine Creatinine Urine Total Protein Vancomycin Trough Rheumatoid Factor Complement C4 Miscellaneous Test Crossmatch 09/07/16 09/07/16 09/07/16 09:20 11:43 11:43 WBC 19.4 H RBC Hgb 8.3 L Hct 26.4 L D MCV 72 L D MCH 22 L MCHC RDW 17.9 H Plt Count Lymph % (Auto) 8.5 L [place] % (Auto) Lymph # [place] # 1.0 H Baso # Seg Neutrophils % 85.8 H Seg Neuts % (Manual) Lymphocytes % (Manual) Monocytes % (Manual) Eosinophils % (Manual) Basophils % (Manual) Nucleated RBC % Seg Neutrophils # 16.6 H Seg Neutrophils # Man Lymphocytes # (Manual) Monocytes # (Manual) Eosinophils # (Manual) PT INR Fibrinogen dRVVT Confirm Interp Factor V Activity POC ABG pH POC ABG pCO2 POC ABG pO2 Sodium 134 L Potassium Chloride 97.2 L Carbon Dioxide 20 L BUN 58 H Creatinine 2.9 H Glucose 147 H POC Glucose Lactic Acid Calcium Phosphorus 2.40 L Magnesium 2.40 H Direct Bilirubin ALT Alkaline Phosphatase Troponin T C-Reactive Protein Total Protein 5.8 L Albumin 2.2 L Triglycerides Cholesterol LDL Cholesterol Direct HDL Cholesterol Urine WBC (Auto) Urine Creatinine Urine Total Protein Vancomycin Trough Rheumatoid Factor Complement C4 58 H Miscellaneous Test Crossmatch 09/07/16 09/07/16 09/07/16 11:50 16:00 17:31 WBC RBC Hgb Hct MCV MCH MCHC RDW Plt Count Lymph % (Auto) [place] % (Auto) Lymph # [place] # Baso # Seg Neutrophils % Seg Neuts % (Manual) Lymphocytes % (Manual) Monocytes % (Manual) Eosinophils % (Manual) Basophils % (Manual) Nucleated RBC % Seg Neutrophils # Seg Neutrophils # Man Lymphocytes # (Manual) Monocytes # (Manual) Eosinophils # (Manual) PT INR Fibrinogen dRVVT Confirm Interp Factor V Activity POC ABG pH POC ABG pCO2 POC ABG pO2 158 H Sodium Potassium Chloride Carbon Dioxide BUN Creatinine Glucose POC Glucose 175 H Lactic Acid Calcium Phosphorus Magnesium Direct Bilirubin ALT Alkaline Phosphatase Troponin T C-Reactive Protein Total Protein Albumin Triglycerides Cholesterol LDL Cholesterol Direct HDL Cholesterol Urine WBC (Auto) Urine Creatinine 66.3 H Urine Total Protein Vancomycin Trough Rheumatoid Factor Complement C4 Miscellaneous Test Crossmatch 09/07/16 09/08/16 09/08/16 23:50 05:46 06:18 WBC 17.8 H RBC 3.58 L Hgb 8.1 L Hct 25.5 L MCV 71 L MCH 23 L MCHC RDW 18.4 H Plt Count Lymph % (Auto) [place] % (Auto) Lymph # [place] # Baso # Seg Neutrophils % Seg Neuts % (Manual) 92.0 H Lymphocytes % (Manual) 6.0 L Monocytes % (Manual) Eosinophils % (Manual) Basophils % (Manual) Nucleated RBC % Seg Neutrophils # Seg Neutrophils # Man 16.4 H Lymphocytes # (Manual) 1.1 L Monocytes # (Manual) Eosinophils # (Manual) PT INR Fibrinogen dRVVT Confirm Interp Factor V Activity POC ABG pH POC ABG pCO2 34.3 L POC ABG pO2 71 L Sodium Potassium Chloride Carbon Dioxide BUN Creatinine Glucose POC Glucose 216 H Lactic Acid Calcium Phosphorus Magnesium Direct Bilirubin ALT Alkaline Phosphatase Troponin T C-Reactive Protein Total Protein Albumin Triglycerides Cholesterol LDL Cholesterol Direct HDL Cholesterol Urine WBC (Auto) Urine Creatinine Urine Total Protein Vancomycin Trough Rheumatoid Factor Complement C4 Miscellaneous Test Crossmatch 09/08/16 09/08/16 09/08/16 06:18 06:51 10:55 WBC RBC Hgb Hct MCV MCH MCHC RDW Plt Count Lymph % (Auto) [place] % (Auto) Lymph # [place] # Baso # Seg Neutrophils % Seg Neuts % (Manual) Lymphocytes % (Manual) Monocytes % (Manual) Eosinophils % (Manual) Basophils % (Manual) Nucleated RBC % Seg Neutrophils # Seg Neutrophils # Man Lymphocytes # (Manual) Monocytes # (Manual) Eosinophils # (Manual) PT INR Fibrinogen dRVVT Confirm Interp Factor V Activity POC ABG pH POC ABG pCO2 POC ABG pO2 Sodium 133 L Potassium Chloride 96.9 L Carbon Dioxide 20 L BUN 63 H Creatinine 2.7 H Glucose 195 H POC Glucose 204 H 169 H Lactic Acid Calcium Phosphorus Magnesium Direct Bilirubin ALT Alkaline Phosphatase Troponin T C-Reactive Protein Total Protein Albumin Triglycerides Cholesterol LDL Cholesterol Direct HDL Cholesterol Urine WBC (Auto) Urine Creatinine Urine Total Protein Vancomycin Trough Rheumatoid Factor Complement C4 Miscellaneous Test Crossmatch 09/08/16 09/08/16 09/08/16 11:48 11:48 11:48 WBC RBC Hgb Hct MCV MCH MCHC RDW Plt Count Lymph % (Auto) [place] % (Auto) Lymph # [place] # Baso # Seg Neutrophils % Seg Neuts % (Manual) Lymphocytes % (Manual) Monocytes % (Manual) Eosinophils % (Manual) Basophils % (Manual) Nucleated RBC % Seg Neutrophils # Seg Neutrophils # Man Lymphocytes # (Manual) Monocytes # (Manual) Eosinophils # (Manual) PT INR Fibrinogen 750 H dRVVT Confirm Interp Factor V Activity POC ABG pH POC ABG pCO2 POC ABG pO2 Sodium Potassium Chloride Carbon Dioxide BUN Creatinine Glucose POC Glucose Lactic Acid Calcium Phosphorus Magnesium Direct Bilirubin ALT Alkaline Phosphatase Troponin T C-Reactive Protein 15.70 H Total Protein Albumin Triglycerides Cholesterol LDL Cholesterol Direct HDL Cholesterol Urine WBC (Auto) Urine Creatinine Urine Total Protein Vancomycin Trough Rheumatoid Factor 24 H Complement C4 Miscellaneous Test Crossmatch 09/08/16 09/08/16 09/09/16 15:35 18:25 00:24 WBC RBC Hgb Hct MCV MCH MCHC RDW Plt Count Lymph % (Auto) [place] % (Auto) Lymph # [place] # Baso # Seg Neutrophils % Seg Neuts % (Manual) Lymphocytes % (Manual) Monocytes % (Manual) Eosinophils % (Manual) Basophils % (Manual) Nucleated RBC % Seg Neutrophils # Seg Neutrophils # Man Lymphocytes # (Manual) Monocytes # (Manual) Eosinophils # (Manual) PT INR Fibrinogen dRVVT Confirm Interp Factor V Activity 182 H POC ABG pH POC ABG pCO2 POC ABG pO2 Sodium Potassium Chloride Carbon Dioxide BUN Creatinine Glucose POC Glucose 184 H 216 H Lactic Acid Calcium Phosphorus Magnesium Direct Bilirubin ALT Alkaline Phosphatase Troponin T C-Reactive Protein Total Protein Albumin Triglycerides Cholesterol LDL Cholesterol Direct HDL Cholesterol Urine WBC (Auto) Urine Creatinine Urine Total Protein Vancomycin Trough Rheumatoid Factor Complement C4 Miscellaneous Test Crossmatch 09/09/16 09/09/16 09/09/16 03:00 03:00 04:04 WBC 27.9 H RBC Hgb 8.7 L Hct 28.1 L MCV 72 L MCH 22 L MCHC RDW 18.4 H Plt Count 485 H Lymph % (Auto) [place] % (Auto) Lymph # [place] # Baso # Seg Neutrophils % Seg Neuts % (Manual) 77.0 H Lymphocytes % (Manual) 9.0 L Monocytes % (Manual) Eosinophils % (Manual) Basophils % (Manual) Nucleated RBC % Seg Neutrophils # Seg Neutrophils # Man 21.5 H Lymphocytes # (Manual) Monocytes # (Manual) 2.0 H Eosinophils # (Manual) PT INR Fibrinogen dRVVT Confirm Interp Factor V Activity POC ABG pH POC ABG pCO2 POC ABG pO2 121 H Sodium 135 L Potassium Chloride 96.3 L Carbon Dioxide 21 L BUN 83 H Creatinine 3.0 H Glucose 135 H POC Glucose Lactic Acid Calcium Phosphorus Magnesium Direct Bilirubin ALT Alkaline Phosphatase Troponin T C-Reactive Protein Total Protein Albumin Triglycerides Cholesterol LDL Cholesterol Direct HDL Cholesterol Urine WBC (Auto) Urine Creatinine Urine Total Protein Vancomycin Trough Rheumatoid Factor Complement C4 Miscellaneous Test Crossmatch 09/09/16 09/09/16 09/09/16 05:41 11:55 14:13 WBC RBC Hgb Hct MCV MCH MCHC RDW Plt Count Lymph % (Auto) [place] % (Auto) Lymph # [place] # Baso # Seg Neutrophils % Seg Neuts % (Manual) Lymphocytes % (Manual) Monocytes % (Manual) Eosinophils % (Manual) Basophils % (Manual) Nucleated RBC % Seg Neutrophils # Seg Neutrophils # Man Lymphocytes # (Manual) Monocytes # (Manual) Eosinophils # (Manual) PT INR Fibrinogen dRVVT Confirm Interp Factor V Activity POC ABG pH POC ABG pCO2 POC ABG pO2 Sodium Potassium Chloride Carbon Dioxide BUN Creatinine Glucose POC Glucose 155 H 186 H Lactic Acid Calcium Phosphorus Magnesium Direct Bilirubin ALT Alkaline Phosphatase Troponin T C-Reactive Protein Total Protein Albumin Triglycerides Cholesterol LDL Cholesterol Direct HDL Cholesterol Urine WBC (Auto) 25.0 H Urine Creatinine Urine Total Protein Vancomycin Trough Rheumatoid Factor Complement C4 Miscellaneous Test Crossmatch 09/09/16 09/09/16 09/10/16 17:33 23:13 05:09 WBC RBC Hgb Hct MCV MCH MCHC RDW Plt Count Lymph % (Auto) [place] % (Auto) Lymph # [place] # Baso # Seg Neutrophils % Seg Neuts % (Manual) Lymphocytes % (Manual) Monocytes % (Manual) Eosinophils % (Manual) Basophils % (Manual) Nucleated RBC % Seg Neutrophils # Seg Neutrophils # Man Lymphocytes # (Manual) Monocytes # (Manual) Eosinophils # (Manual) PT INR Fibrinogen dRVVT Confirm Interp Factor V Activity POC ABG pH POC ABG pCO2 POC ABG pO2 74 L Sodium Potassium Chloride Carbon Dioxide BUN Creatinine Glucose POC Glucose 211 H 215 H Lactic Acid Calcium Phosphorus Magnesium Direct Bilirubin ALT Alkaline Phosphatase Troponin T C-Reactive Protein Total Protein Albumin Triglycerides Cholesterol LDL Cholesterol Direct HDL Cholesterol Urine WBC (Auto) Urine Creatinine Urine Total Protein Vancomycin Trough Rheumatoid Factor Complement C4 Miscellaneous Test Crossmatch 09/10/16 09/10/16 09/10/16 05:17 05:17 11:31 WBC 15.8 H RBC 3.25 L Hgb 7.3 L Hct 22.9 L MCV 71 L MCH 23 L MCHC RDW 18.4 H Plt Count Lymph % (Auto) [place] % (Auto) Lymph # [place] # Baso # Seg Neutrophils % Seg Neuts % (Manual) 91.0 H Lymphocytes % (Manual) 4.0 L Monocytes % (Manual) Eosinophils % (Manual) Basophils % (Manual) Nucleated RBC % Seg Neutrophils # Seg Neutrophils # Man 14.4 H Lymphocytes # (Manual) 0.6 L Monocytes # (Manual) Eosinophils # (Manual) PT INR Fibrinogen dRVVT Confirm Interp Factor V Activity POC ABG pH POC ABG pCO2 POC ABG pO2 Sodium Potassium Chloride Carbon Dioxide 21 L BUN 93 H Creatinine 2.9 H Glucose 146 H POC Glucose 188 H Lactic Acid Calcium 8.1 L Phosphorus Magnesium Direct Bilirubin ALT Alkaline Phosphatase Troponin T C-Reactive Protein Total Protein Albumin Triglycerides Cholesterol LDL Cholesterol Direct HDL Cholesterol Urine WBC (Auto) Urine Creatinine Urine Total Protein Vancomycin Trough Rheumatoid Factor Complement C4 Miscellaneous Test Crossmatch 09/10/16 09/10/16 09/10/16 13:17 17:20 23:32 WBC RBC Hgb Hct MCV MCH MCHC RDW Plt Count Lymph % (Auto) [place] % (Auto) Lymph # [place] # Baso # Seg Neutrophils % Seg Neuts % (Manual) Lymphocytes % (Manual) Monocytes % (Manual) Eosinophils % (Manual) Basophils % (Manual) Nucleated RBC % Seg Neutrophils # Seg Neutrophils # Man Lymphocytes # (Manual) Monocytes # (Manual) Eosinophils # (Manual) PT INR Fibrinogen dRVVT Confirm Interp Factor V Activity POC ABG pH POC ABG pCO2 POC ABG pO2 Sodium Potassium Chloride Carbon Dioxide BUN Creatinine Glucose POC Glucose 199 H 186 H Lactic Acid Calcium Phosphorus Magnesium Direct Bilirubin ALT Alkaline Phosphatase Troponin T C-Reactive Protein Total Protein Albumin Triglycerides Cholesterol LDL Cholesterol Direct HDL Cholesterol Urine WBC (Auto) Urine Creatinine Urine Total Protein Vancomycin Trough Rheumatoid Factor Complement C4 Miscellaneous Test Crossmatch See Detail 0709/11/16 09/11/16 05:10 05:10 05:17 WBC 28.4 H RBC Hgb 9.2 L Hct 29.3 L D MCV 73 L MCH 23 L MCHC RDW 18.9 H Plt Count 452 H Lymph % (Auto) [place] % (Auto) Lymph # [place] # Baso # Seg Neutrophils % Seg Neuts % (Manual) 89.5 H Lymphocytes % (Manual) 2.0 L Monocytes % (Manual) Eosinophils % (Manual) Basophils % (Manual) Nucleated RBC % Seg Neutrophils # Seg Neutrophils # Man 25.4 H Lymphocytes # (Manual) 0.6 L Monocytes # (Manual) 1.3 H Eosinophils # (Manual) PT INR Fibrinogen dRVVT Confirm Interp Factor V Activity POC ABG pH POC ABG pCO2 POC ABG pO2 Sodium 136 L Potassium Chloride Carbon Dioxide 18 L BUN 107 H Creatinine 2.6 H Glucose 187 H POC Glucose 230 H Lactic Acid Calcium 8.3 L Phosphorus Magnesium Direct Bilirubin ALT Alkaline Phosphatase Troponin T C-Reactive Protein Total Protein Albumin Triglycerides Cholesterol LDL Cholesterol Direct HDL Cholesterol Urine WBC (Auto) Urine Creatinine Urine Total Protein Vancomycin Trough Rheumatoid Factor Complement C4 Miscellaneous Test Crossmatch 09/11/16 09/11/16 09/11/16 05:55 12:02 17:32 WBC RBC Hgb Hct MCV MCH MCHC RDW Plt Count Lymph % (Auto) [place] % (Auto) Lymph # [place] # Baso # Seg Neutrophils % Seg Neuts % (Manual) Lymphocytes % (Manual) Monocytes % (Manual) Eosinophils % (Manual) Basophils % (Manual) Nucleated RBC % Seg Neutrophils # Seg Neutrophils # Man Lymphocytes # (Manual) Monocytes # (Manual) Eosinophils # (Manual) PT INR Fibrinogen dRVVT Confirm Interp Factor V Activity POC ABG pH POC ABG pCO2 33.8 L POC ABG pO2 Sodium Potassium Chloride Carbon Dioxide BUN Creatinine Glucose POC Glucose 191 H 239 H Lactic Acid Calcium Phosphorus Magnesium Direct Bilirubin ALT Alkaline Phosphatase Troponin T C-Reactive Protein Total Protein Albumin Triglycerides Cholesterol LDL Cholesterol Direct HDL Cholesterol Urine WBC (Auto) Urine Creatinine Urine Total Protein Vancomycin Trough Rheumatoid Factor Complement C4 Miscellaneous Test Crossmatch 09/11/16 09/12/16 09/12/16 23:52 05:09 05:32 WBC RBC Hgb Hct MCV MCH MCHC RDW Plt Count Lymph % (Auto) [place] % (Auto) Lymph # [place] # Baso # Seg Neutrophils % Seg Neuts % (Manual) Lymphocytes % (Manual) Monocytes % (Manual) Eosinophils % (Manual) Basophils % (Manual) Nucleated RBC % Seg Neutrophils # Seg Neutrophils # Man Lymphocytes # (Manual) Monocytes # (Manual) Eosinophils # (Manual) PT INR Fibrinogen dRVVT Confirm Interp Factor V Activity POC ABG pH POC ABG pCO2 34.6 L POC ABG pO2 Sodium Potassium Chloride Carbon Dioxide BUN Creatinine Glucose POC Glucose 265 H 184 H Lactic Acid Calcium Phosphorus Magnesium Direct Bilirubin ALT Alkaline Phosphatase Troponin T C-Reactive Protein Total Protein Albumin Triglycerides Cholesterol LDL Cholesterol Direct HDL Cholesterol Urine WBC (Auto) Urine Creatinine Urine Total Protein Vancomycin Trough Rheumatoid Factor Complement C4 Miscellaneous Test Crossmatch 09/12/16 09/12/16 09/12/16 06:45 06:45 07:22 WBC 31.7 H RBC 3.54 L Hgb 8.3 L Hct 25.9 L MCV 73 L MCH 23 L MCHC RDW 18.9 H Plt Count Lymph % (Auto) [place] % (Auto) Lymph # [place] # Baso # Seg Neutrophils % Seg Neuts % (Manual) 88.5 H Lymphocytes % (Manual) 4.5 L Monocytes % (Manual) Eosinophils % (Manual) Basophils % (Manual) Nucleated RBC % Seg Neutrophils # Seg Neutrophils # Man 28.1 H Lymphocytes # (Manual) Monocytes # (Manual) 1.0 H Eosinophils # (Manual) PT INR Fibrinogen dRVVT Confirm Interp Factor V Activity POC ABG pH POC ABG pCO2 POC ABG pO2 Sodium Potassium Chloride Carbon Dioxide 20 L BUN 115 H Creatinine 2.7 H Glucose 165 H POC Glucose Lactic Acid Calcium 8.0 L Phosphorus Magnesium Direct Bilirubin ALT Alkaline Phosphatase Troponin T C-Reactive Protein Total Protein Albumin Triglycerides 217 H Cholesterol LDL Cholesterol Direct HDL Cholesterol Urine WBC (Auto) Urine Creatinine Urine Total Protein Vancomycin Trough Rheumatoid Factor Complement C4 Miscellaneous Test Crossmatch 09/12/16 09/12/16 09/12/16 07:22 09:59 12:21 WBC RBC Hgb Hct MCV MCH MCHC RDW Plt Count Lymph % (Auto) [place] % (Auto) Lymph # [place] # Baso # Seg Neutrophils % Seg Neuts % (Manual) Lymphocytes % (Manual) Monocytes % (Manual) Eosinophils % (Manual) Basophils % (Manual) Nucleated RBC % Seg Neutrophils # Seg Neutrophils # Man Lymphocytes # (Manual) Monocytes # (Manual) Eosinophils # (Manual) PT INR Fibrinogen dRVVT Confirm Interp Positive H Factor V Activity POC ABG pH POC ABG pCO2 POC ABG pO2 Sodium Potassium Chloride Carbon Dioxide BUN Creatinine Glucose POC Glucose 224 H Lactic Acid Calcium Phosphorus Magnesium Direct Bilirubin ALT Alkaline Phosphatase Troponin T C-Reactive Protein 1.70 H Total Protein Albumin Triglycerides Cholesterol LDL Cholesterol Direct HDL Cholesterol Urine WBC (Auto) Urine Creatinine Urine Total Protein Vancomycin Trough Rheumatoid Factor Complement C4 Miscellaneous Test Crossmatch 09/12/16 09/12/16 09/13/16 16:51 23:28 04:00 WBC 45.0 H* RBC Hgb 9.4 L Hct MCV 75 L MCH 23 L MCHC RDW 19.0 H Plt Count 470 H Lymph % (Auto) [place] % (Auto) Lymph # [place] # Baso # Seg Neutrophils % Seg Neuts % (Manual) 89.0 H Lymphocytes % (Manual) 5.0 L Monocytes % (Manual) Eosinophils % (Manual) Basophils % (Manual) Nucleated RBC % Seg Neutrophils # Seg Neutrophils # Man 40.1 H Lymphocytes # (Manual) Monocytes # (Manual) Eosinophils # (Manual) PT INR Fibrinogen dRVVT Confirm Interp Factor V Activity POC ABG pH POC ABG pCO2 POC ABG pO2 Sodium Potassium Chloride Carbon Dioxide BUN Creatinine Glucose POC Glucose 169 H 150 H Lactic Acid Calcium Phosphorus Magnesium Direct Bilirubin ALT Alkaline Phosphatase Troponin T C-Reactive Protein Total Protein Albumin Triglycerides Cholesterol LDL Cholesterol Direct HDL Cholesterol Urine WBC (Auto) Urine Creatinine Urine Total Protein Vancomycin Trough Rheumatoid Factor Complement C4 Miscellaneous Test Crossmatch 09/13/16 09/13/16 09/13/16 04:00 11:26 17:31 WBC RBC Hgb Hct MCV MCH MCHC RDW Plt Count Lymph % (Auto) [place] % (Auto) Lymph # [place] # Baso # Seg Neutrophils % Seg Neuts % (Manual) Lymphocytes % (Manual) Monocytes % (Manual) Eosinophils % (Manual) Basophils % (Manual) Nucleated RBC % Seg Neutrophils # Seg Neutrophils # Man Lymphocytes # (Manual) Monocytes # (Manual) Eosinophils # (Manual) PT INR Fibrinogen dRVVT Confirm Interp Factor V Activity POC ABG pH POC ABG pCO2 POC ABG pO2 Sodium Potassium Chloride Carbon Dioxide 20 L BUN 116 H Creatinine 3.0 H Glucose 172 H POC Glucose 140 H 183 H Lactic Acid Calcium Phosphorus Magnesium Direct Bilirubin ALT Alkaline Phosphatase Troponin T C-Reactive Protein Total Protein 6.2 L Albumin 2.9 L Triglycerides Cholesterol LDL Cholesterol Direct HDL Cholesterol Urine WBC (Auto) Urine Creatinine Urine Total Protein Vancomycin Trough Rheumatoid Factor Complement C4 Miscellaneous Test Crossmatch 09/13/16 09/14/16 09/14/16 23:23 04:06 04:07 WBC 29.4 H RBC Hgb 8.9 L Hct 27.3 L MCV 75 L MCH 24 L MCHC RDW 19.1 H Plt Count Lymph % (Auto) [place] % (Auto) Lymph # [place] # Baso # Seg Neutrophils % Seg Neuts % (Manual) 84.0 H Lymphocytes % (Manual) 6.0 L Monocytes % (Manual) 9.0 H Eosinophils % (Manual) Basophils % (Manual) Nucleated RBC % Seg Neutrophils # Seg Neutrophils # Man 24.7 H Lymphocytes # (Manual) Monocytes # (Manual) 2.6 H Eosinophils # (Manual) PT INR Fibrinogen dRVVT Confirm Interp Factor V Activity POC ABG pH 7.342 L POC ABG pCO2 POC ABG pO2 116 H Sodium Potassium Chloride Carbon Dioxide BUN Creatinine Glucose POC Glucose 154 H Lactic Acid Calcium Phosphorus Magnesium Direct Bilirubin ALT Alkaline Phosphatase Troponin T C-Reactive Protein Total Protein Albumin Triglycerides Cholesterol LDL Cholesterol Direct HDL Cholesterol Urine WBC (Auto) Urine Creatinine Urine Total Protein Vancomycin Trough Rheumatoid Factor Complement C4 Miscellaneous Test Crossmatch 09/14/16 09/14/16 09/14/16 04:07 05:29 12:19 WBC RBC Hgb Hct MCV MCH MCHC RDW Plt Count Lymph % (Auto) [place] % (Auto) Lymph # [place] # Baso # Seg Neutrophils % Seg Neuts % (Manual) Lymphocytes % (Manual) Monocytes % (Manual) Eosinophils % (Manual) Basophils % (Manual) Nucleated RBC % Seg Neutrophils # Seg Neutrophils # Man Lymphocytes # (Manual) Monocytes # (Manual) Eosinophils # (Manual) PT INR Fibrinogen dRVVT Confirm Interp Factor V Activity POC ABG pH POC ABG pCO2 POC ABG pO2 Sodium 136 L Potassium Chloride Carbon Dioxide 18 L BUN 121 H Creatinine 2.8 H Glucose 214 H POC Glucose 239 H 181 H Lactic Acid Calcium Phosphorus Magnesium Direct Bilirubin ALT Alkaline Phosphatase Troponin T C-Reactive Protein Total Protein Albumin Triglycerides Cholesterol LDL Cholesterol Direct HDL Cholesterol Urine WBC (Auto) Urine Creatinine Urine Total Protein Vancomycin Trough Rheumatoid Factor Complement C4 Miscellaneous Test Crossmatch 09/14/16 09/14/16 09/15/16 18:12 23:37 05:00 WBC 26.1 H RBC 3.05 L Hgb 7.2 L Hct 22.9 L MCV 75 L MCH 24 L MCHC RDW 19.0 H Plt Count Lymph % (Auto) [place] % (Auto) Lymph # [place] # Baso # Seg Neutrophils % Seg Neuts % (Manual) Lymphocytes % (Manual) Monocytes % (Manual) Eosinophils % (Manual) Basophils % (Manual) Nucleated RBC % Seg Neutrophils # Seg Neutrophils # Man Lymphocytes # (Manual) Monocytes # (Manual) Eosinophils # (Manual) PT INR Fibrinogen dRVVT Confirm Interp Factor V Activity POC ABG pH POC ABG pCO2 POC ABG pO2 Sodium Potassium Chloride Carbon Dioxide BUN Creatinine Glucose POC Glucose 266 H 154 H Lactic Acid Calcium Phosphorus Magnesium Direct Bilirubin ALT Alkaline Phosphatase Troponin T C-Reactive Protein Total Protein Albumin Triglycerides Cholesterol LDL Cholesterol Direct HDL Cholesterol Urine WBC (Auto) Urine Creatinine Urine Total Protein Vancomycin Trough Rheumatoid Factor Complement C4 Miscellaneous Test Crossmatch 09/15/16 09/15/16 09/15/16 05:00 05:17 12:45 WBC RBC Hgb Hct MCV MCH MCHC RDW Plt Count Lymph % (Auto) [place] % (Auto) Lymph # [place] # Baso # Seg Neutrophils % Seg Neuts % (Manual) Lymphocytes % (Manual) Monocytes % (Manual) Eosinophils % (Manual) Basophils % (Manual) Nucleated RBC % Seg Neutrophils # Seg Neutrophils # Man Lymphocytes # (Manual) Monocytes # (Manual) Eosinophils # (Manual) PT INR Fibrinogen dRVVT Confirm Interp Factor V Activity POC ABG pH POC ABG pCO2 POC ABG pO2 Sodium Potassium 5.2 H Chloride Carbon Dioxide 18 L BUN 139 H Creatinine 3.7 H Glucose 227 H POC Glucose 226 H 244 H Lactic Acid Calcium 8.3 L Phosphorus Magnesium Direct Bilirubin ALT Alkaline Phosphatase Troponin T C-Reactive Protein Total Protein Albumin Triglycerides Cholesterol LDL Cholesterol Direct HDL Cholesterol Urine WBC (Auto) Urine Creatinine Urine Total Protein Vancomycin Trough Rheumatoid Factor Complement C4 Miscellaneous Test Crossmatch 09/15/16 09/15/16 09/15/16 14:32 17:33 23:35 WBC RBC Hgb Hct MCV MCH MCHC RDW Plt Count Lymph % (Auto) [place] % (Auto) Lymph # [place] # Baso # Seg Neutrophils % Seg Neuts % (Manual) Lymphocytes % (Manual) Monocytes % (Manual) Eosinophils % (Manual) Basophils % (Manual) Nucleated RBC % Seg Neutrophils # Seg Neutrophils # Man Lymphocytes # (Manual) Monocytes # (Manual) Eosinophils # (Manual) PT INR Fibrinogen dRVVT Confirm Interp Factor V Activity POC ABG pH POC ABG pCO2 27.7 L POC ABG pO2 120 H Sodium Potassium Chloride Carbon Dioxide BUN Creatinine Glucose POC Glucose 232 H 167 H Lactic Acid Calcium Phosphorus Magnesium Direct Bilirubin ALT Alkaline Phosphatase Troponin T C-Reactive Protein Total Protein Albumin Triglycerides Cholesterol LDL Cholesterol Direct HDL Cholesterol Urine WBC (Auto) Urine Creatinine Urine Total Protein Vancomycin Trough Rheumatoid Factor Complement C4 Miscellaneous Test Crossmatch 09/16/16 09/16/16 09/16/16 03:58 10:27 10:27 WBC 19.0 H RBC 2.77 L Hgb 6.5 L Hct 20.9 L MCV 76 L MCH 23 L MCHC RDW 19.3 H Plt Count Lymph % (Auto) 11.0 L [place] % (Auto) Lymph # [place] # 1.1 H Baso # Seg Neutrophils % 82.5 H Seg Neuts % (Manual) Lymphocytes % (Manual) Monocytes % (Manual) Eosinophils % (Manual) Basophils % (Manual) Nucleated RBC % Seg Neutrophils # 15.7 H Seg Neutrophils # Man Lymphocytes # (Manual) Monocytes # (Manual) Eosinophils # (Manual) PT INR Fibrinogen dRVVT Confirm Interp Factor V Activity POC ABG pH POC ABG pCO2 POC ABG pO2 Sodium Potassium Chloride 109.3 H Carbon Dioxide 18 L BUN 139 H Creatinine 4.1 H Glucose 144 H POC Glucose 146 H Lactic Acid Calcium 8.1 L Phosphorus Magnesium Direct Bilirubin ALT Alkaline Phosphatase Troponin T C-Reactive Protein Total Protein Albumin Triglycerides Cholesterol LDL Cholesterol Direct HDL Cholesterol Urine WBC (Auto) Urine Creatinine Urine Total Protein Vancomycin Trough Rheumatoid Factor Complement C4 Miscellaneous Test Crossmatch 09/16/16 09/16/16 09/16/16 12:04 12:10 13:55 WBC RBC Hgb Hct MCV MCH MCHC RDW Plt Count Lymph % (Auto) [place] % (Auto) Lymph # [place] # Baso # Seg Neutrophils % Seg Neuts % (Manual) Lymphocytes % (Manual) Monocytes % (Manual) Eosinophils % (Manual) Basophils % (Manual) Nucleated RBC % Seg Neutrophils # Seg Neutrophils # Man Lymphocytes # (Manual) Monocytes # (Manual) Eosinophils # (Manual) PT INR Fibrinogen dRVVT Confirm Interp Factor V Activity POC ABG pH POC ABG pCO2 32.9 L POC ABG pO2 Sodium Potassium Chloride Carbon Dioxide BUN Creatinine Glucose POC Glucose 185 H Lactic Acid Calcium Phosphorus Magnesium Direct Bilirubin ALT Alkaline Phosphatase Troponin T C-Reactive Protein Total Protein Albumin Triglycerides Cholesterol LDL Cholesterol Direct HDL Cholesterol Urine WBC (Auto) Urine Creatinine Urine Total Protein Vancomycin Trough Rheumatoid Factor Complement C4 Miscellaneous Test Crossmatch See Detail 09/16/16 09/16/16 09/16/16 17:55 19:19 23:48 WBC RBC Hgb Hct MCV MCH MCHC RDW Plt Count Lymph % (Auto) [place] % (Auto) Lymph # [place] # Baso # Seg Neutrophils % Seg Neuts % (Manual) Lymphocytes % (Manual) Monocytes % (Manual) Eosinophils % (Manual) Basophils % (Manual) Nucleated RBC % Seg Neutrophils # Seg Neutrophils # Man Lymphocytes # (Manual) Monocytes # (Manual) Eosinophils # (Manual) PT INR Fibrinogen dRVVT Confirm Interp Factor V Activity POC ABG pH POC ABG pCO2 POC ABG pO2 Sodium Potassium Chloride Carbon Dioxide BUN Creatinine Glucose POC Glucose 222 H 107 H Lactic Acid Calcium Phosphorus Magnesium Direct Bilirubin ALT Alkaline Phosphatase Troponin T C-Reactive Protein Total Protein Albumin Triglycerides Cholesterol LDL Cholesterol Direct HDL Cholesterol Urine WBC (Auto) Urine Creatinine 47.4 H Urine Total Protein 16 H Vancomycin Trough Rheumatoid Factor Complement C4 Miscellaneous Test Crossmatch 09/17/16 09/17/16 09/17/16 03:45 03:45 04:55 WBC 19.6 H RBC 3.41 L Hgb 8.5 L Hct 26.7 L MCV 78 L MCH 25 L MCHC RDW 19.9 H Plt Count Lymph % (Auto) 9.3 L [place] % (Auto) Lymph # [place] # 1.2 H Baso # Seg Neutrophils % 83.9 H Seg Neuts % (Manual) Lymphocytes % (Manual) Monocytes % (Manual) Eosinophils % (Manual) Basophils % (Manual) Nucleated RBC % Seg Neutrophils # 16.4 H Seg Neutrophils # Man Lymphocytes # (Manual) Monocytes # (Manual) Eosinophils # (Manual) PT INR Fibrinogen dRVVT Confirm Interp Factor V Activity POC ABG pH POC ABG pCO2 POC ABG pO2 Sodium 146 H Potassium 5.1 H Chloride 110.9 H Carbon Dioxide 16 L BUN 146 H Creatinine 4.0 H Glucose 108 H POC Glucose 133 H Lactic Acid Calcium Phosphorus Magnesium 3.00 H Direct Bilirubin ALT Alkaline Phosphatase Troponin T C-Reactive Protein Total Protein Albumin Triglycerides Cholesterol LDL Cholesterol Direct HDL Cholesterol Urine WBC (Auto) Urine Creatinine Urine Total Protein Vancomycin Trough Rheumatoid Factor Complement C4 Miscellaneous Test Crossmatch 09/17/16 09/17/16 09/17/16 11:15 17:33 23:47 WBC RBC Hgb Hct MCV MCH MCHC RDW Plt Count Lymph % (Auto) [place] % (Auto) Lymph # [place] # Baso # Seg Neutrophils % Seg Neuts % (Manual) Lymphocytes % (Manual) Monocytes % (Manual) Eosinophils % (Manual) Basophils % (Manual) Nucleated RBC % Seg Neutrophils # Seg Neutrophils # Man Lymphocytes # (Manual) Monocytes # (Manual) Eosinophils # (Manual) PT INR Fibrinogen dRVVT Confirm Interp Factor V Activity POC ABG pH POC ABG pCO2 POC ABG pO2 Sodium Potassium Chloride Carbon Dioxide BUN Creatinine Glucose POC Glucose 176 H 246 H 148 H Lactic Acid Calcium Phosphorus Magnesium Direct Bilirubin ALT Alkaline Phosphatase Troponin T C-Reactive Protein Total Protein Albumin Triglycerides Cholesterol LDL Cholesterol Direct HDL Cholesterol Urine WBC (Auto) Urine Creatinine Urine Total Protein Vancomycin Trough Rheumatoid Factor Complement C4 Miscellaneous Test Crossmatch 09/18/16 09/18/16 09/18/16 05:33 08:31 08:31 WBC 18.0 H RBC 3.17 L Hgb 9.0 L Hct 25.7 L MCV MCH MCHC 35 H RDW 20.4 H Plt Count Lymph % (Auto) [place] % (Auto) Lymph # [place] # Baso # Seg Neutrophils % Seg Neuts % (Manual) Lymphocytes % (Manual) Monocytes % (Manual) Eosinophils % (Manual) Basophils % (Manual) Nucleated RBC % Seg Neutrophils # Seg Neutrophils # Man Lymphocytes # (Manual) Monocytes # (Manual) Eosinophils # (Manual) PT INR Fibrinogen dRVVT Confirm Interp Factor V Activity POC ABG pH POC ABG pCO2 POC ABG pO2 Sodium Potassium Chloride Carbon Dioxide 15 L BUN 124 H Creatinine 3.8 H Glucose POC Glucose 120 H Lactic Acid Calcium 8.1 L Phosphorus Magnesium Direct Bilirubin ALT Alkaline Phosphatase Troponin T C-Reactive Protein Total Protein Albumin Triglycerides Cholesterol LDL Cholesterol Direct HDL Cholesterol Urine WBC (Auto) Urine Creatinine Urine Total Protein Vancomycin Trough Rheumatoid Factor Complement C4 Miscellaneous Test Crossmatch 09/18/16 09/18/16 09/18/16 12:03 15:34 17:50 WBC RBC Hgb Hct MCV MCH MCHC RDW Plt Count Lymph % (Auto) [place] % (Auto) Lymph # [place] # Baso # Seg Neutrophils % Seg Neuts % (Manual) Lymphocytes % (Manual) Monocytes % (Manual) Eosinophils % (Manual) Basophils % (Manual) Nucleated RBC % Seg Neutrophils # Seg Neutrophils # Man Lymphocytes # (Manual) Monocytes # (Manual) Eosinophils # (Manual) PT INR Fibrinogen dRVVT Confirm Interp Factor V Activity POC ABG pH POC ABG pCO2 25.7 L POC ABG pO2 66 L Sodium Potassium Chloride Carbon Dioxide BUN Creatinine Glucose POC Glucose 156 H 220 H Lactic Acid Calcium Phosphorus Magnesium Direct Bilirubin ALT Alkaline Phosphatase Troponin T C-Reactive Protein Total Protein Albumin Triglycerides Cholesterol LDL Cholesterol Direct HDL Cholesterol Urine WBC (Auto) Urine Creatinine Urine Total Protein Vancomycin Trough Rheumatoid Factor Complement C4 Miscellaneous Test Crossmatch 09/19/16 09/19/16 09/19/16 06:21 09:50 09:50 WBC 17.1 H RBC 3.49 L Hgb 9.0 L Hct 28.1 L MCV MCH 26 L MCHC RDW 20.8 H Plt Count Lymph % (Auto) 11.5 L [place] % (Auto) 7.5 H Lymph # [place] # 1.3 H Baso # Seg Neutrophils % 79.8 H Seg Neuts % (Manual) Lymphocytes % (Manual) Monocytes % (Manual) Eosinophils % (Manual) Basophils % (Manual) Nucleated RBC % Seg Neutrophils # 13.7 H Seg Neutrophils # Man Lymphocytes # (Manual) Monocytes # (Manual) Eosinophils # (Manual) PT INR Fibrinogen dRVVT Confirm Interp Factor V Activity POC ABG pH POC ABG pCO2 POC ABG pO2 Sodium Potassium Chloride 108.6 H Carbon Dioxide 15 L BUN 125 H Creatinine 4.1 H Glucose 124 H POC Glucose 119 H Lactic Acid Calcium Phosphorus Magnesium Direct Bilirubin ALT Alkaline Phosphatase Troponin T C-Reactive Protein Total Protein Albumin Triglycerides Cholesterol LDL Cholesterol Direct HDL Cholesterol Urine WBC (Auto) Urine Creatinine Urine Total Protein Vancomycin Trough Rheumatoid Factor Complement C4 Miscellaneous Test Crossmatch 09/19/16 09/19/16 09/19/16 11:25 17:53 23:36 WBC RBC Hgb Hct MCV MCH MCHC RDW Plt Count Lymph % (Auto) [place] % (Auto) Lymph # [place] # Baso # Seg Neutrophils % Seg Neuts % (Manual) Lymphocytes % (Manual) Monocytes % (Manual) Eosinophils % (Manual) Basophils % (Manual) Nucleated RBC % Seg Neutrophils # Seg Neutrophils # Man Lymphocytes # (Manual) Monocytes # (Manual) Eosinophils # (Manual) PT INR Fibrinogen dRVVT Confirm Interp Factor V Activity POC ABG pH POC ABG pCO2 POC ABG pO2 Sodium Potassium Chloride Carbon Dioxide BUN Creatinine Glucose POC Glucose 160 H 245 H 121 H Lactic Acid Calcium Phosphorus Magnesium Direct Bilirubin ALT Alkaline Phosphatase Troponin T C-Reactive Protein Total Protein Albumin Triglycerides Cholesterol LDL Cholesterol Direct HDL Cholesterol Urine WBC (Auto) Urine Creatinine Urine Total Protein Vancomycin Trough Rheumatoid Factor Complement C4 Miscellaneous Test Crossmatch 09/20/16 09/20/16 09/20/16 04:10 04:10 04:10 WBC 17.0 H RBC 3.21 L Hgb 8.2 L Hct 25.5 L MCV MCH 26 L MCHC RDW 20.9 H Plt Count Lymph % (Auto) [place] % (Auto) Lymph # [place] # Baso # Seg Neutrophils % Seg Neuts % (Manual) Lymphocytes % (Manual) Monocytes % (Manual) Eosinophils % (Manual) Basophils % (Manual) Nucleated RBC % Seg Neutrophils # Seg Neutrophils # Man Lymphocytes # (Manual) Monocytes # (Manual) Eosinophils # (Manual) PT INR Fibrinogen dRVVT Confirm Interp Factor V Activity POC ABG pH POC ABG pCO2 POC ABG pO2 Sodium Potassium Chloride 111.0 H Carbon Dioxide 16 L BUN 129 H Creatinine 3.7 H Glucose 115 H POC Glucose Lactic Acid Calcium 8.2 L Phosphorus Magnesium Direct Bilirubin ALT Alkaline Phosphatase Troponin T C-Reactive Protein Total Protein Albumin Triglycerides 243 H Cholesterol LDL Cholesterol Direct HDL Cholesterol Urine WBC (Auto) Urine Creatinine Urine Total Protein Vancomycin Trough Rheumatoid Factor Complement C4 Miscellaneous Test Crossmatch 09/20/16 09/20/16 09/20/16 05:40 11:52 16:50 WBC RBC Hgb Hct MCV MCH MCHC RDW Plt Count Lymph % (Auto) [place] % (Auto) Lymph # [place] # Baso # Seg Neutrophils % Seg Neuts % (Manual) Lymphocytes % (Manual) Monocytes % (Manual) Eosinophils % (Manual) Basophils % (Manual) Nucleated RBC % Seg Neutrophils # Seg Neutrophils # Man Lymphocytes # (Manual) Monocytes # (Manual) Eosinophils # (Manual) PT INR Fibrinogen dRVVT Confirm Interp Factor V Activity POC ABG pH POC ABG pCO2 POC ABG pO2 Sodium Potassium Chloride Carbon Dioxide BUN Creatinine Glucose POC Glucose 131 H 183 H 236 H Lactic Acid Calcium Phosphorus Magnesium Direct Bilirubin ALT Alkaline Phosphatase Troponin T C-Reactive Protein Total Protein Albumin Triglycerides Cholesterol LDL Cholesterol Direct HDL Cholesterol Urine WBC (Auto) Urine Creatinine Urine Total Protein Vancomycin Trough Rheumatoid Factor Complement C4 Miscellaneous Test Crossmatch 09/20/16 09/21/16 09/21/16 23:51 03:30 04:44 WBC RBC Hgb Hct MCV MCH MCHC RDW Plt Count Lymph % (Auto) [place] % (Auto) Lymph # [place] # Baso # Seg Neutrophils % Seg Neuts % (Manual) Lymphocytes % (Manual) Monocytes % (Manual) Eosinophils % (Manual) Basophils % (Manual) Nucleated RBC % Seg Neutrophils # Seg Neutrophils # Man Lymphocytes # (Manual) Monocytes # (Manual) Eosinophils # (Manual) PT INR Fibrinogen dRVVT Confirm Interp Factor V Activity POC ABG pH POC ABG pCO2 POC ABG pO2 Sodium Potassium Chloride Carbon Dioxide BUN Creatinine Glucose POC Glucose 114 H 141 H Lactic Acid Calcium Phosphorus Magnesium 2.70 H Direct Bilirubin ALT Alkaline Phosphatase Troponin T C-Reactive Protein Total Protein Albumin Triglycerides Cholesterol LDL Cholesterol Direct HDL Cholesterol Urine WBC (Auto) Urine Creatinine Urine Total Protein Vancomycin Trough Rheumatoid Factor Complement C4 Miscellaneous Test Crossmatch 09/21/16 09/21/16 09/21/16 07:45 07:45 10:01 WBC 13.8 H RBC 2.94 L Hgb 7.5 L Hct 23.5 L MCV MCH 26 L MCHC RDW 21.2 H Plt Count Lymph % (Auto) 6.9 L [place] % (Auto) 9.4 H Lymph # 0.9 L [place] # 1.3 H Baso # Seg Neutrophils % 83.2 H Seg Neuts % (Manual) Lymphocytes % (Manual) Monocytes % (Manual) Eosinophils % (Manual) Basophils % (Manual) Nucleated RBC % Seg Neutrophils # 11.5 H Seg Neutrophils # Man Lymphocytes # (Manual) Monocytes # (Manual) Eosinophils # (Manual) PT INR Fibrinogen dRVVT Confirm Interp Factor V Activity POC ABG pH 7.308 L POC ABG pCO2 31.9 L POC ABG pO2 148 H Sodium 147 H Potassium Chloride 114.2 H Carbon Dioxide 15 L BUN 120 H Creatinine 3.9 H Glucose 156 H POC Glucose Lactic Acid Calcium 8.2 L Phosphorus Magnesium Direct Bilirubin ALT Alkaline Phosphatase Troponin T C-Reactive Protein Total Protein Albumin Triglycerides Cholesterol LDL Cholesterol Direct HDL Cholesterol Urine WBC (Auto) Urine Creatinine Urine Total Protein Vancomycin Trough Rheumatoid Factor Complement C4 Miscellaneous Test Crossmatch 09/21/16 09/21/16 09/21/16 12:00 12:03 13:00 WBC RBC Hgb Hct MCV MCH MCHC RDW Plt Count Lymph % (Auto) [place] % (Auto) Lymph # [place] # Baso # Seg Neutrophils % Seg Neuts % (Manual) Lymphocytes % (Manual) Monocytes % (Manual) Eosinophils % (Manual) Basophils % (Manual) Nucleated RBC % Seg Neutrophils # Seg Neutrophils # Man Lymphocytes # (Manual) Monocytes # (Manual) Eosinophils # (Manual) PT INR Fibrinogen dRVVT Confirm Interp Factor V Activity POC ABG pH POC ABG pCO2 POC ABG pO2 Sodium Potassium Chloride Carbon Dioxide BUN Creatinine Glucose POC Glucose 163 H Lactic Acid Calcium Phosphorus Magnesium Direct Bilirubin ALT Alkaline Phosphatase Troponin T C-Reactive Protein Total Protein Albumin Triglycerides Cholesterol LDL Cholesterol Direct HDL Cholesterol Urine WBC (Auto) Urine Creatinine 54.8 H Urine Total Protein Vancomycin Trough 2.3 L Rheumatoid Factor Complement C4 Miscellaneous Test Crossmatch 09/21/16 09/21/16 09/22/16 16:51 23:17 06:27 WBC RBC Hgb Hct MCV MCH MCHC RDW Plt Count Lymph % (Auto) [place] % (Auto) Lymph # [place] # Baso # Seg Neutrophils % Seg Neuts % (Manual) Lymphocytes % (Manual) Monocytes % (Manual) Eosinophils % (Manual) Basophils % (Manual) Nucleated RBC % Seg Neutrophils # Seg Neutrophils # Man Lymphocytes # (Manual) Monocytes # (Manual) Eosinophils # (Manual) PT INR Fibrinogen dRVVT Confirm Interp Factor V Activity POC ABG pH POC ABG pCO2 POC ABG pO2 Sodium Potassium Chloride Carbon Dioxide BUN Creatinine Glucose POC Glucose 206 H 114 H 115 H Lactic Acid Calcium Phosphorus Magnesium Direct Bilirubin ALT Alkaline Phosphatase Troponin T C-Reactive Protein Total Protein Albumin Triglycerides Cholesterol LDL Cholesterol Direct HDL Cholesterol Urine WBC (Auto) Urine Creatinine Urine Total Protein Vancomycin Trough Rheumatoid Factor Complement C4 Miscellaneous Test Crossmatch 09/22/16 09/22/16 09/22/16 07:50 07:50 12:00 WBC 17.8 H RBC 3.04 L Hgb 8.0 L Hct 24.7 L MCV MCH 26 L MCHC RDW 21.6 H Plt Count Lymph % (Auto) [place] % (Auto) Lymph # [place] # Baso # Seg Neutrophils % Seg Neuts % (Manual) Lymphocytes % (Manual) Monocytes % (Manual) Eosinophils % (Manual) Basophils % (Manual) Nucleated RBC % Seg Neutrophils # Seg Neutrophils # Man Lymphocytes # (Manual) Monocytes # (Manual) Eosinophils # (Manual) PT INR Fibrinogen dRVVT Confirm Interp Factor V Activity POC ABG pH POC ABG pCO2 POC ABG pO2 Sodium 150 H Potassium Chloride 118.2 H Carbon Dioxide 14 L BUN 111 H Creatinine 3.7 H Glucose 157 H POC Glucose 183 H Lactic Acid Calcium Phosphorus Magnesium Direct Bilirubin ALT Alkaline Phosphatase Troponin T C-Reactive Protein Total Protein Albumin Triglycerides Cholesterol LDL Cholesterol Direct HDL Cholesterol Urine WBC (Auto) Urine Creatinine Urine Total Protein Vancomycin Trough Rheumatoid Factor Complement C4 Miscellaneous Test Crossmatch 09/22/16 09/22/16 09/23/16 17:29 23:10 05:00 WBC 19.2 H RBC 3.13 L Hgb 8.0 L Hct 25.2 L MCV MCH 26 L MCHC RDW 22.1 H Plt Count Lymph % (Auto) [place] % (Auto) Lymph # [place] # Baso # Seg Neutrophils % Seg Neuts % (Manual) 92.0 H Lymphocytes % (Manual) 3.0 L Monocytes % (Manual) Eosinophils % (Manual) Basophils % (Manual) Nucleated RBC % Seg Neutrophils # Seg Neutrophils # Man 17.7 H Lymphocytes # (Manual) 0.6 L Monocytes # (Manual) Eosinophils # (Manual) PT INR Fibrinogen dRVVT Confirm Interp Factor V Activity POC ABG pH POC ABG pCO2 POC ABG pO2 Sodium Potassium Chloride Carbon Dioxide BUN Creatinine Glucose POC Glucose 197 H 169 H Lactic Acid Calcium Phosphorus Magnesium Direct Bilirubin ALT Alkaline Phosphatase Troponin T C-Reactive Protein Total Protein Albumin Triglycerides Cholesterol LDL Cholesterol Direct HDL Cholesterol Urine WBC (Auto) Urine Creatinine Urine Total Protein Vancomycin Trough Rheumatoid Factor Complement C4 Miscellaneous Test Crossmatch 09/23/16 09/23/16 09/23/16 05:00 05:00 05:10 WBC RBC Hgb Hct MCV MCH MCHC RDW Plt Count Lymph % (Auto) [place] % (Auto) Lymph # [place] # Baso # Seg Neutrophils % Seg Neuts % (Manual) Lymphocytes % (Manual) Monocytes % (Manual) Eosinophils % (Manual) Basophils % (Manual) Nucleated RBC % Seg Neutrophils # Seg Neutrophils # Man Lymphocytes # (Manual) Monocytes # (Manual) Eosinophils # (Manual) PT INR Fibrinogen dRVVT Confirm Interp Factor V Activity POC ABG pH POC ABG pCO2 POC ABG pO2 Sodium 147 H Potassium 3.2 L Chloride 115.7 H Carbon Dioxide 13 L BUN 111 H Creatinine 3.8 H Glucose 194 H POC Glucose 188 H Lactic Acid Calcium 7.3 L D Phosphorus Magnesium Direct Bilirubin ALT Alkaline Phosphatase Troponin T C-Reactive Protein 3.20 H Total Protein Albumin Triglycerides Cholesterol LDL Cholesterol Direct HDL Cholesterol Urine WBC (Auto) Urine Creatinine Urine Total Protein Vancomycin Trough Rheumatoid Factor Complement C4 Miscellaneous Test Crossmatch 09/23/16 09/23/16 09/23/16 11:37 12:29 18:01 WBC RBC Hgb Hct MCV MCH MCHC RDW Plt Count Lymph % (Auto) [place] % (Auto) Lymph # [place] # Baso # Seg Neutrophils % Seg Neuts % (Manual) Lymphocytes % (Manual) Monocytes % (Manual) Eosinophils % (Manual) Basophils % (Manual) Nucleated RBC % Seg Neutrophils # Seg Neutrophils # Man Lymphocytes # (Manual) Monocytes # (Manual) Eosinophils # (Manual) PT INR Fibrinogen dRVVT Confirm Interp Factor V Activity POC ABG pH POC ABG pCO2 18.9 L POC ABG pO2 143 H Sodium Potassium Chloride Carbon Dioxide BUN Creatinine Glucose POC Glucose 153 H 108 H Lactic Acid Calcium Phosphorus Magnesium Direct Bilirubin ALT Alkaline Phosphatase Troponin T C-Reactive Protein Total Protein Albumin Triglycerides Cholesterol LDL Cholesterol Direct HDL Cholesterol Urine WBC (Auto) Urine Creatinine Urine Total Protein Vancomycin Trough Rheumatoid Factor Complement C4 Miscellaneous Test Crossmatch 09/23/16 09/23/16 09/24/16 21:19 23:43 05:16 WBC RBC Hgb Hct MCV MCH MCHC RDW Plt Count Lymph % (Auto) [place] % (Auto) Lymph # [place] # Baso # Seg Neutrophils % Seg Neuts % (Manual) Lymphocytes % (Manual) Monocytes % (Manual) Eosinophils % (Manual) Basophils % (Manual) Nucleated RBC % Seg Neutrophils # Seg Neutrophils # Man Lymphocytes # (Manual) Monocytes # (Manual) Eosinophils # (Manual) PT INR Fibrinogen dRVVT Confirm Interp Factor V Activity POC ABG pH POC ABG pCO2 17.3 L POC ABG pO2 112 H Sodium Potassium Chloride Carbon Dioxide BUN Creatinine Glucose POC Glucose 143 H 164 H Lactic Acid Calcium Phosphorus Magnesium Direct Bilirubin ALT Alkaline Phosphatase Troponin T C-Reactive Protein Total Protein Albumin Triglycerides Cholesterol LDL Cholesterol Direct HDL Cholesterol Urine WBC (Auto) Urine Creatinine Urine Total Protein Vancomycin Trough Rheumatoid Factor Complement C4 Miscellaneous Test Crossmatch 09/24/16 09/24/16 09/24/16 05:21 11:58 17:06 WBC RBC Hgb Hct MCV MCH MCHC RDW Plt Count Lymph % (Auto) [place] % (Auto) Lymph # [place] # Baso # Seg Neutrophils % Seg Neuts % (Manual) Lymphocytes % (Manual) Monocytes % (Manual) Eosinophils % (Manual) Basophils % (Manual) Nucleated RBC % Seg Neutrophils # Seg Neutrophils # Man Lymphocytes # (Manual) Monocytes # (Manual) Eosinophils # (Manual) PT INR Fibrinogen dRVVT Confirm Interp Factor V Activity POC ABG pH POC ABG pCO2 POC ABG pO2 Sodium Potassium Chloride Carbon Dioxide 10 L BUN 103 H Creatinine 4.3 H Glucose 163 H POC Glucose 173 H 167 H Lactic Acid Calcium 6.5 L Phosphorus Magnesium Direct Bilirubin ALT Alkaline Phosphatase Troponin T C-Reactive Protein Total Protein Albumin Triglycerides Cholesterol LDL Cholesterol Direct HDL Cholesterol Urine WBC (Auto) Urine Creatinine Urine Total Protein Vancomycin Trough Rheumatoid Factor Complement C4 Miscellaneous Test Crossmatch 09/24/16 09/24/16 09/24/16 20:15 21:02 23:48 WBC RBC Hgb Hct MCV MCH MCHC RDW Plt Count Lymph % (Auto) [place] % (Auto) Lymph # [place] # Baso # Seg Neutrophils % Seg Neuts % (Manual) Lymphocytes % (Manual) Monocytes % (Manual) Eosinophils % (Manual) Basophils % (Manual) Nucleated RBC % Seg Neutrophils # Seg Neutrophils # Man Lymphocytes # (Manual) Monocytes # (Manual) Eosinophils # (Manual) PT INR Fibrinogen dRVVT Confirm Interp Factor V Activity POC ABG pH 7.288 L POC ABG pCO2 30.2 L 21.5 L POC ABG pO2 32 L 39 L Sodium Potassium Chloride Carbon Dioxide BUN Creatinine Glucose POC Glucose 109 H Lactic Acid Calcium Phosphorus Magnesium Direct Bilirubin ALT Alkaline Phosphatase Troponin T C-Reactive Protein Total Protein Albumin Triglycerides Cholesterol LDL Cholesterol Direct HDL Cholesterol Urine WBC (Auto) Urine Creatinine Urine Total Protein Vancomycin Trough Rheumatoid Factor Complement C4 Miscellaneous Test Crossmatch 09/25/16 09/25/16 09/25/16 04:20 04:20 04:20 WBC RBC 2.58 L Hgb 7.0 L Hct 21.0 L MCV MCH 27 L MCHC RDW 23.8 H Plt Count Lymph % (Auto) [place] % (Auto) Lymph # [place] # Baso # Seg Neutrophils % Seg Neuts % (Manual) Lymphocytes % (Manual) 12.0 L Monocytes % (Manual) Eosinophils % (Manual) 7.0 H Basophils % (Manual) 2.0 H Nucleated RBC % Seg Neutrophils # Seg Neutrophils # Man Lymphocytes # (Manual) 0.9 L Monocytes # (Manual) Eosinophils # (Manual) 0.5 H PT INR Fibrinogen dRVVT Confirm Interp Factor V Activity POC ABG pH POC ABG pCO2 POC ABG pO2 Sodium Potassium Chloride Carbon Dioxide 15 L BUN 72 H Creatinine 3.8 H Glucose POC Glucose Lactic Acid Calcium 6.0 L Phosphorus 4.60 H Magnesium 1.60 L Direct Bilirubin ALT Alkaline Phosphatase Troponin T C-Reactive Protein Total Protein Albumin Triglycerides Cholesterol LDL Cholesterol Direct HDL Cholesterol Urine WBC (Auto) Urine Creatinine Urine Total Protein Vancomycin Trough Rheumatoid Factor Complement C4 Miscellaneous Test Crossmatch 09/25/16 09/25/16 09/25/16 04:57 08:02 10:30 WBC RBC Hgb Hct MCV MCH MCHC RDW Plt Count Lymph % (Auto) [place] % (Auto) Lymph # [place] # Baso # Seg Neutrophils % Seg Neuts % (Manual) Lymphocytes % (Manual) Monocytes % (Manual) Eosinophils % (Manual) Basophils % (Manual) Nucleated RBC % Seg Neutrophils # Seg Neutrophils # Man Lymphocytes # (Manual) Monocytes # (Manual) Eosinophils # (Manual) PT INR Fibrinogen dRVVT Confirm Interp Factor V Activity POC ABG pH POC ABG pCO2 24.7 L POC ABG pO2 152 H Sodium Potassium Chloride Carbon Dioxide BUN Creatinine Glucose POC Glucose 113 H Lactic Acid Calcium Phosphorus Magnesium Direct Bilirubin ALT Alkaline Phosphatase Troponin T C-Reactive Protein Total Protein Albumin Triglycerides Cholesterol LDL Cholesterol Direct HDL Cholesterol Urine WBC (Auto) Urine Creatinine Urine Total Protein Vancomycin Trough Rheumatoid Factor Complement C4 Miscellaneous Test Crossmatch See Detail 09/25/16 09/25/16 09/25/16 12:05 17:44 23:47 WBC RBC Hgb Hct MCV MCH MCHC RDW Plt Count Lymph % (Auto) [place] % (Auto) Lymph # [place] # Baso # Seg Neutrophils % Seg Neuts % (Manual) Lymphocytes % (Manual) Monocytes % (Manual) Eosinophils % (Manual) Basophils % (Manual) Nucleated RBC % Seg Neutrophils # Seg Neutrophils # Man Lymphocytes # (Manual) Monocytes # (Manual) Eosinophils # (Manual) PT INR Fibrinogen dRVVT Confirm Interp Factor V Activity POC ABG pH POC ABG pCO2 POC ABG pO2 Sodium Potassium Chloride Carbon Dioxide BUN Creatinine Glucose POC Glucose 117 H 119 H 150 H Lactic Acid Calcium Phosphorus Magnesium Direct Bilirubin ALT Alkaline Phosphatase Troponin T C-Reactive Protein Total Protein Albumin Triglycerides Cholesterol LDL Cholesterol Direct HDL Cholesterol Urine WBC (Auto) Urine Creatinine Urine Total Protein Vancomycin Trough Rheumatoid Factor Complement C4 Miscellaneous Test Crossmatch 09/26/16 09/26/16 09/26/16 04:25 04:25 04:25 WBC RBC 2.65 L Hgb 7.4 L Hct 21.6 L MCV MCH MCHC RDW 22.5 H Plt Count Lymph % (Auto) [place] % (Auto) Lymph # [place] # Baso # Seg Neutrophils % Seg Neuts % (Manual) Lymphocytes % (Manual) 6.0 L Monocytes % (Manual) Eosinophils % (Manual) 11.0 H Basophils % (Manual) Nucleated RBC % Seg Neutrophils # Seg Neutrophils # Man Lymphocytes # (Manual) 0.4 L Monocytes # (Manual) Eosinophils # (Manual) 0.6 H PT INR Fibrinogen dRVVT Confirm Interp Factor V Activity POC ABG pH POC ABG pCO2 POC ABG pO2 Sodium Potassium Chloride 97.0 L Carbon Dioxide 19 L BUN 43 H Creatinine 2.6 H Glucose 130 H POC Glucose Lactic Acid 4.40 H* Calcium 6.7 L Phosphorus Magnesium Direct Bilirubin ALT Alkaline Phosphatase Troponin T C-Reactive Protein Total Protein Albumin Triglycerides Cholesterol LDL Cholesterol Direct HDL Cholesterol Urine WBC (Auto) Urine Creatinine Urine Total Protein Vancomycin Trough Rheumatoid Factor Complement C4 Miscellaneous Test Crossmatch 09/26/16 09/26/16 09/26/16 05:20 11:44 12:12 WBC RBC Hgb Hct MCV MCH MCHC RDW Plt Count Lymph % (Auto) [place] % (Auto) Lymph # [place] # Baso # Seg Neutrophils % Seg Neuts % (Manual) Lymphocytes % (Manual) Monocytes % (Manual) Eosinophils % (Manual) Basophils % (Manual) Nucleated RBC % Seg Neutrophils # Seg Neutrophils # Man Lymphocytes # (Manual) Monocytes # (Manual) Eosinophils # (Manual) PT INR Fibrinogen dRVVT Confirm Interp Factor V Activity POC ABG pH POC ABG pCO2 27.0 L POC ABG pO2 69 L Sodium Potassium Chloride Carbon Dioxide BUN Creatinine Glucose POC Glucose 121 H 128 H Lactic Acid Calcium Phosphorus Magnesium Direct Bilirubin ALT Alkaline Phosphatase Troponin T C-Reactive Protein Total Protein Albumin Triglycerides Cholesterol LDL Cholesterol Direct HDL Cholesterol Urine WBC (Auto) Urine Creatinine Urine Total Protein Vancomycin Trough Rheumatoid Factor Complement C4 Miscellaneous Test Crossmatch 09/26/16 09/26/16 09/27/16 18:31 23:40 08:20 WBC RBC Hgb Hct MCV MCH MCHC RDW Plt Count Lymph % (Auto) [place] % (Auto) Lymph # [place] # Baso # Seg Neutrophils % Seg Neuts % (Manual) Lymphocytes % (Manual) Monocytes % (Manual) Eosinophils % (Manual) Basophils % (Manual) Nucleated RBC % Seg Neutrophils # Seg Neutrophils # Man Lymphocytes # (Manual) Monocytes # (Manual) Eosinophils # (Manual) PT INR Fibrinogen dRVVT Confirm Interp Factor V Activity POC ABG pH POC ABG pCO2 POC ABG pO2 Sodium Potassium Chloride Carbon Dioxide BUN Creatinine Glucose POC Glucose 120 H 133 H Lactic Acid 4.10 H* Calcium Phosphorus Magnesium Direct Bilirubin ALT Alkaline Phosphatase Troponin T C-Reactive Protein Total Protein Albumin Triglycerides Cholesterol LDL Cholesterol Direct HDL Cholesterol Urine WBC (Auto) Urine Creatinine Urine Total Protein Vancomycin Trough Rheumatoid Factor Complement C4 Miscellaneous Test Crossmatch 09/27/16 09/27/16 09/27/16 11:23 15:00 18:15 WBC RBC Hgb Hct MCV MCH MCHC RDW Plt Count Lymph % (Auto) [place] % (Auto) Lymph # [place] # Baso # Seg Neutrophils % Seg Neuts % (Manual) Lymphocytes % (Manual) Monocytes % (Manual) Eosinophils % (Manual) Basophils % (Manual) Nucleated RBC % Seg Neutrophils # Seg Neutrophils # Man Lymphocytes # (Manual) Monocytes # (Manual) Eosinophils # (Manual) PT INR Fibrinogen dRVVT Confirm Interp Factor V Activity POC ABG pH 7.459 H POC ABG pCO2 27.1 L POC ABG pO2 140 H Sodium Potassium Chloride Carbon Dioxide BUN Creatinine Glucose POC Glucose 114 H 127 H Lactic Acid Calcium Phosphorus Magnesium Direct Bilirubin ALT Alkaline Phosphatase Troponin T C-Reactive Protein Total Protein Albumin Triglycerides Cholesterol LDL Cholesterol Direct HDL Cholesterol Urine WBC (Auto) Urine Creatinine Urine Total Protein Vancomycin Trough Rheumatoid Factor Complement C4 Miscellaneous Test Crossmatch 09/27/16 09/27/16 09/28/16 Unknown Unknown 03:45 WBC RBC 2.49 L Hgb 6.8 L Hct 20.7 L MCV MCH 27 L MCHC RDW 22.1 H Plt Count Lymph % (Auto) [place] % (Auto) Lymph # [place] # Baso # Seg Neutrophils % Seg Neuts % (Manual) 32.0 L Lymphocytes % (Manual) 12.0 L Monocytes % (Manual) 11.0 H Eosinophils % (Manual) 10.0 H Basophils % (Manual) Nucleated RBC % Seg Neutrophils # Seg Neutrophils # Man Lymphocytes # (Manual) 1.0 L Monocytes # (Manual) 0.9 H Eosinophils # (Manual) 0.8 H PT INR Fibrinogen dRVVT Confirm Interp Factor V Activity POC ABG pH POC ABG pCO2 POC ABG pO2 Sodium 135 L 135 L Potassium 3.5 L Chloride 93.6 L 94.4 L Carbon Dioxide 17 L 21 L BUN 45 H 28 H Creatinine 3.3 H 2.5 H Glucose 106 H POC Glucose Lactic Acid Calcium 7.3 L 7.1 L Phosphorus Magnesium Direct Bilirubin ALT Alkaline Phosphatase Troponin T C-Reactive Protein Total Protein Albumin Triglycerides Cholesterol LDL Cholesterol Direct HDL Cholesterol Urine WBC (Auto) Urine Creatinine Urine Total Protein Vancomycin Trough Rheumatoid Factor Complement C4 Miscellaneous Test Crossmatch 09/28/16 09/28/16 09/28/16 03:45 07:25 11:58 WBC 13.3 H RBC 3.01 L Hgb 8.4 L Hct 25.0 L MCV MCH MCHC RDW 20.5 H Plt Count 128 L Lymph % (Auto) [place] % (Auto) Lymph # [place] # Baso # Seg Neutrophils % Seg Neuts % (Manual) Lymphocytes % (Manual) 7.0 L Monocytes % (Manual) Eosinophils % (Manual) 6.0 H Basophils % (Manual) Nucleated RBC % Seg Neutrophils # Seg Neutrophils # Man Lymphocytes # (Manual) 0.9 L Monocytes # (Manual) Eosinophils # (Manual) 0.8 H PT INR Fibrinogen dRVVT Confirm Interp Factor V Activity POC ABG pH POC ABG pCO2 POC ABG pO2 Sodium Potassium Chloride Carbon Dioxide BUN Creatinine Glucose POC Glucose 121 H Lactic Acid 4.50 H* Calcium Phosphorus Magnesium Direct Bilirubin ALT Alkaline Phosphatase Troponin T C-Reactive Protein Total Protein Albumin Triglycerides Cholesterol LDL Cholesterol Direct HDL Cholesterol Urine WBC (Auto) Urine Creatinine Urine Total Protein Vancomycin Trough Rheumatoid Factor Complement C4 Miscellaneous Test Crossmatch 09/29/16 09/29/16 09/29/16 06:45 06:45 06:45 WBC 14.9 H RBC 2.74 L Hgb 7.6 L Hct 23.2 L MCV MCH MCHC RDW 20.5 H Plt Count 81 L Lymph % (Auto) [place] % (Auto) Lymph # [place] # Baso # Seg Neutrophils % Seg Neuts % (Manual) 81.0 H Lymphocytes % (Manual) 4.0 L Monocytes % (Manual) Eosinophils % (Manual) Basophils % (Manual) Nucleated RBC % Seg Neutrophils # Seg Neutrophils # Man 12.1 H Lymphocytes # (Manual) 0.6 L Monocytes # (Manual) Eosinophils # (Manual) PT INR Fibrinogen dRVVT Confirm Interp Factor V Activity POC ABG pH POC ABG pCO2 POC ABG pO2 Sodium 133 L Potassium 3.4 L Chloride 92.5 L Carbon Dioxide 21 L BUN 33 H Creatinine 3.0 H Glucose POC Glucose Lactic Acid Calcium 6.6 L Phosphorus Magnesium 1.40 L Direct Bilirubin 0.9 H ALT Alkaline Phosphatase Troponin T C-Reactive Protein Total Protein 4.3 L Albumin 1.3 L Triglycerides Cholesterol LDL Cholesterol Direct HDL Cholesterol Urine WBC (Auto) Urine Creatinine Urine Total Protein Vancomycin Trough Rheumatoid Factor Complement C4 Miscellaneous Test Crossmatch 09/29/16 09/29/16 09/30/16 17:52 20:12 00:07 WBC RBC Hgb Hct MCV MCH MCHC RDW Plt Count Lymph % (Auto) [place] % (Auto) Lymph # [place] # Baso # Seg Neutrophils % Seg Neuts % (Manual) Lymphocytes % (Manual) Monocytes % (Manual) Eosinophils % (Manual) Basophils % (Manual) Nucleated RBC % Seg Neutrophils # Seg Neutrophils # Man Lymphocytes # (Manual) Monocytes # (Manual) Eosinophils # (Manual) PT INR Fibrinogen dRVVT Confirm Interp Factor V Activity POC ABG pH POC ABG pCO2 POC ABG pO2 Sodium Potassium Chloride Carbon Dioxide BUN Creatinine Glucose POC Glucose 50 L 51 L Lactic Acid Calcium Phosphorus Magnesium Direct Bilirubin ALT Alkaline Phosphatase Troponin T 0.204 H* C-Reactive Protein Total Protein Albumin Triglycerides Cholesterol 31 L LDL Cholesterol Direct 4 L HDL Cholesterol 3 L Urine WBC (Auto) Urine Creatinine Urine Total Protein Vancomycin Trough Rheumatoid Factor Complement C4 Miscellaneous Test Crossmatch 09/30/16 09/30/16 09/30/16 01:30 05:15 06:10 WBC RBC Hgb Hct MCV MCH MCHC RDW Plt Count Lymph % (Auto) [place] % (Auto) Lymph # [place] # Baso # Seg Neutrophils % Seg Neuts % (Manual) Lymphocytes % (Manual) Monocytes % (Manual) Eosinophils % (Manual) Basophils % (Manual) Nucleated RBC % Seg Neutrophils # Seg Neutrophils # Man Lymphocytes # (Manual) Monocytes # (Manual) Eosinophils # (Manual) PT INR Fibrinogen dRVVT Confirm Interp Factor V Activity POC ABG pH POC ABG pCO2 POC ABG pO2 Sodium 133 L Potassium 3.2 L Chloride 93.2 L Carbon Dioxide 19 L BUN 36 H Creatinine 3.2 H Glucose 104 H POC Glucose 167 H 146 H Lactic Acid Calcium 6.4 L Phosphorus Magnesium 1.60 L Direct Bilirubin ALT Alkaline Phosphatase Troponin T C-Reactive Protein Total Protein Albumin Triglycerides Cholesterol LDL Cholesterol Direct HDL Cholesterol Urine WBC (Auto) Urine Creatinine Urine Total Protein Vancomycin Trough Rheumatoid Factor Complement C4 Miscellaneous Test Crossmatch 09/30/16 09/30/16 09/30/16 11:26 13:39 18:38 WBC RBC Hgb Hct MCV MCH MCHC RDW Plt Count Lymph % (Auto) [place] % (Auto) Lymph # [place] # Baso # Seg Neutrophils % Seg Neuts % (Manual) Lymphocytes % (Manual) Monocytes % (Manual) Eosinophils % (Manual) Basophils % (Manual) Nucleated RBC % Seg Neutrophils # Seg Neutrophils # Man Lymphocytes # (Manual) Monocytes # (Manual) Eosinophils # (Manual) PT INR Fibrinogen dRVVT Confirm Interp Factor V Activity POC ABG pH 7.479 H POC ABG pCO2 29.8 L POC ABG pO2 117 H Sodium Potassium Chloride Carbon Dioxide BUN Creatinine Glucose POC Glucose 140 H 122 H Lactic Acid Calcium Phosphorus Magnesium Direct Bilirubin ALT Alkaline Phosphatase Troponin T C-Reactive Protein Total Protein Albumin Triglycerides Cholesterol LDL Cholesterol Direct HDL Cholesterol Urine WBC (Auto) Urine Creatinine Urine Total Protein Vancomycin Trough Rheumatoid Factor Complement C4 Miscellaneous Test Crossmatch 10/01/16 10/01/16 10/01/16 06:00 06:00 12:37 WBC 12.6 H RBC 2.75 L Hgb 7.3 L Hct 23.3 L MCV MCH 27 L MCHC RDW 20.6 H Plt Count 72 L Lymph % (Auto) [place] % (Auto) Lymph # [place] # Baso # Seg Neutrophils % Seg Neuts % (Manual) 31.0 L Lymphocytes % (Manual) 8.0 L Monocytes % (Manual) Eosinophils % (Manual) Basophils % (Manual) Nucleated RBC % 3.0 H Seg Neutrophils # Seg Neutrophils # Man Lymphocytes # (Manual) 1.0 L Monocytes # (Manual) Eosinophils # (Manual) PT INR Fibrinogen dRVVT Confirm Interp Factor V Activity POC ABG pH POC ABG pCO2 POC ABG pO2 Sodium 127 L Potassium Chloride 86.8 L Carbon Dioxide 20 L BUN 42 H Creatinine 3.5 H Glucose POC Glucose 65 L Lactic Acid Calcium 7.0 L Phosphorus Magnesium Direct Bilirubin ALT Alkaline Phosphatase Troponin T C-Reactive Protein Total Protein Albumin Triglycerides Cholesterol LDL Cholesterol Direct HDL Cholesterol Urine WBC (Auto) Urine Creatinine Urine Total Protein Vancomycin Trough Rheumatoid Factor Complement C4 Miscellaneous Test Crossmatch 10/01/16 10/01/16 10/02/16 17:39 23:32 00:59 WBC RBC Hgb Hct MCV MCH MCHC RDW Plt Count Lymph % (Auto) [place] % (Auto) Lymph # [place] # Baso # Seg Neutrophils % Seg Neuts % (Manual) Lymphocytes % (Manual) Monocytes % (Manual) Eosinophils % (Manual) Basophils % (Manual) Nucleated RBC % Seg Neutrophils # Seg Neutrophils # Man Lymphocytes # (Manual) Monocytes # (Manual) Eosinophils # (Manual) PT INR Fibrinogen dRVVT Confirm Interp Factor V Activity POC ABG pH POC ABG pCO2 POC ABG pO2 Sodium Potassium Chloride Carbon Dioxide BUN Creatinine Glucose POC Glucose 107 H 52 L 145 H Lactic Acid Calcium Phosphorus Magnesium Direct Bilirubin ALT Alkaline Phosphatase Troponin T C-Reactive Protein Total Protein Albumin Triglycerides Cholesterol LDL Cholesterol Direct HDL Cholesterol Urine WBC (Auto) Urine Creatinine Urine Total Protein Vancomycin Trough Rheumatoid Factor Complement C4 Miscellaneous Test Crossmatch 10/02/16 10/02/16 10/02/16 10:30 10:50 10:50 WBC 14.7 H RBC 2.76 L Hgb 7.4 L Hct 23.6 L MCV MCH 27 L MCHC RDW 20.2 H Plt Count 79 L Lymph % (Auto) [place] % (Auto) Lymph # [place] # Baso # Seg Neutrophils % Seg Neuts % (Manual) 86.0 H Lymphocytes % (Manual) 6.0 L Monocytes % (Manual) Eosinophils % (Manual) Basophils % (Manual) Nucleated RBC % Seg Neutrophils # Seg Neutrophils # Man 12.6 H Lymphocytes # (Manual) 0.9 L Monocytes # (Manual) Eosinophils # (Manual) PT INR Fibrinogen dRVVT Confirm Interp Factor V Activity POC ABG pH 7.486 H POC ABG pCO2 30.1 L POC ABG pO2 108 H Sodium 131 L Potassium 3.4 L Chloride 89.9 L Carbon Dioxide BUN 26 H Creatinine 2.6 H Glucose POC Glucose Lactic Acid Calcium 7.0 L Phosphorus Magnesium Direct Bilirubin ALT Alkaline Phosphatase Troponin T C-Reactive Protein Total Protein Albumin Triglycerides Cholesterol LDL Cholesterol Direct HDL Cholesterol Urine WBC (Auto) Urine Creatinine Urine Total Protein Vancomycin Trough Rheumatoid Factor Complement C4 Miscellaneous Test Crossmatch 10/02/16 10/03/16 10/03/16 23:45 00:45 05:10 WBC 12.9 H RBC 2.77 L Hgb 7.6 L Hct 23.7 L MCV MCH 27 L MCHC RDW 19.7 H Plt Count 89 L Lymph % (Auto) [place] % (Auto) Lymph # [place] # Baso # Seg Neutrophils % Seg Neuts % (Manual) Lymphocytes % (Manual) 8.0 L Monocytes % (Manual) Eosinophils % (Manual) Basophils % (Manual) Nucleated RBC % Seg Neutrophils # 11.9 H Seg Neutrophils # Man Lymphocytes # (Manual) 1.0 L Monocytes # (Manual) Eosinophils # (Manual) PT INR Fibrinogen dRVVT Confirm Interp Factor V Activity POC ABG pH POC ABG pCO2 POC ABG pO2 Sodium Potassium Chloride Carbon Dioxide BUN Creatinine Glucose POC Glucose 55 L 199 H Lactic Acid Calcium Phosphorus Magnesium Direct Bilirubin ALT Alkaline Phosphatase Troponin T C-Reactive Protein Total Protein Albumin Triglycerides Cholesterol LDL Cholesterol Direct HDL Cholesterol Urine WBC (Auto) Urine Creatinine Urine Total Protein Vancomycin Trough Rheumatoid Factor Complement C4 Miscellaneous Test Crossmatch 10/03/16 10/03/16 10/03/16 05:10 12:14 13:18 WBC RBC Hgb Hct MCV MCH MCHC RDW Plt Count Lymph % (Auto) [place] % (Auto) Lymph # [place] # Baso # Seg Neutrophils % Seg Neuts % (Manual) Lymphocytes % (Manual) Monocytes % (Manual) Eosinophils % (Manual) Basophils % (Manual) Nucleated RBC % Seg Neutrophils # Seg Neutrophils # Man Lymphocytes # (Manual) Monocytes # (Manual) Eosinophils # (Manual) PT INR Fibrinogen dRVVT Confirm Interp Factor V Activity POC ABG pH POC ABG pCO2 POC ABG pO2 Sodium 129 L Potassium 3.3 L Chloride 88.8 L Carbon Dioxide 20 L BUN 29 H Creatinine 2.8 H Glucose POC Glucose 68 L 127 H Lactic Acid Calcium 7.2 L Phosphorus Magnesium Direct Bilirubin ALT Alkaline Phosphatase Troponin T C-Reactive Protein Total Protein Albumin Triglycerides Cholesterol LDL Cholesterol Direct HDL Cholesterol Urine WBC (Auto) Urine Creatinine Urine Total Protein Vancomycin Trough Rheumatoid Factor Complement C4 Miscellaneous Test Crossmatch 10/03/16 10/03/16 10/03/16 14:42 18:21 19:09 WBC RBC Hgb Hct MCV MCH MCHC RDW Plt Count Lymph % (Auto) [place] % (Auto) Lymph # [place] # Baso # Seg Neutrophils % Seg Neuts % (Manual) Lymphocytes % (Manual) Monocytes % (Manual) Eosinophils % (Manual) Basophils % (Manual) Nucleated RBC % Seg Neutrophils # Seg Neutrophils # Man Lymphocytes # (Manual) Monocytes # (Manual) Eosinophils # (Manual) PT INR Fibrinogen dRVVT Confirm Interp Factor V Activity POC ABG pH 7.499 H POC ABG pCO2 28.4 L POC ABG pO2 44 L Sodium Potassium Chloride Carbon Dioxide BUN Creatinine Glucose POC Glucose 64 L 205 H Lactic Acid Calcium Phosphorus Magnesium Direct Bilirubin ALT Alkaline Phosphatase Troponin T C-Reactive Protein Total Protein Albumin Triglycerides Cholesterol LDL Cholesterol Direct HDL Cholesterol Urine WBC (Auto) Urine Creatinine Urine Total Protein Vancomycin Trough Rheumatoid Factor Complement C4 Miscellaneous Test Crossmatch 10/03/16 10/04/16 10/04/16 23:33 04:18 06:30 WBC RBC 2.54 L Hgb 7.1 L Hct 21.7 L MCV MCH MCHC RDW 19.5 H Plt Count 76 L Lymph % (Auto) [place] % (Auto) Lymph # [place] # Baso # Seg Neutrophils % Seg Neuts % (Manual) 88.0 H Lymphocytes % (Manual) 6.0 L Monocytes % (Manual) Eosinophils % (Manual) Basophils % (Manual) Nucleated RBC % Seg Neutrophils # Seg Neutrophils # Man 8.8 H Lymphocytes # (Manual) 0.6 L Monocytes # (Manual) Eosinophils # (Manual) PT INR Fibrinogen dRVVT Confirm Interp Factor V Activity POC ABG pH 7.461 H POC ABG pCO2 33.6 L POC ABG pO2 211 H Sodium Potassium Chloride Carbon Dioxide BUN Creatinine Glucose POC Glucose 136 H Lactic Acid Calcium Phosphorus Magnesium Direct Bilirubin ALT Alkaline Phosphatase Troponin T C-Reactive Protein Total Protein Albumin Triglycerides Cholesterol LDL Cholesterol Direct HDL Cholesterol Urine WBC (Auto) Urine Creatinine Urine Total Protein Vancomycin Trough Rheumatoid Factor Complement C4 Miscellaneous Test Crossmatch 10/04/16 10/04/16 10/04/16 06:30 11:45 17:54 WBC RBC Hgb Hct MCV MCH MCHC RDW Plt Count Lymph % (Auto) [place] % (Auto) Lymph # [place] # Baso # Seg Neutrophils % Seg Neuts % (Manual) Lymphocytes % (Manual) Monocytes % (Manual) Eosinophils % (Manual) Basophils % (Manual) Nucleated RBC % Seg Neutrophils # Seg Neutrophils # Man Lymphocytes # (Manual) Monocytes # (Manual) Eosinophils # (Manual) PT INR Fibrinogen dRVVT Confirm Interp Factor V Activity POC ABG pH POC ABG pCO2 POC ABG pO2 Sodium 128 L Potassium Chloride 87.4 L Carbon Dioxide 20 L BUN 34 H Creatinine 2.9 H Glucose 127 H POC Glucose 158 H 160 H Lactic Acid Calcium 7.4 L Phosphorus Magnesium Direct Bilirubin ALT Alkaline Phosphatase Troponin T C-Reactive Protein Total Protein Albumin Triglycerides Cholesterol LDL Cholesterol Direct HDL Cholesterol Urine WBC (Auto) Urine Creatinine Urine Total Protein Vancomycin Trough Rheumatoid Factor Complement C4 Miscellaneous Test Crossmatch 10/04/16 10/05/16 10/05/16 23:25 04:30 05:00 WBC RBC 2.64 L Hgb 7.5 L Hct 22.6 L MCV MCH MCHC RDW 19.3 H Plt Count 80 L Lymph % (Auto) [place] % (Auto) Lymph # [place] # Baso # Seg Neutrophils % Seg Neuts % (Manual) Lymphocytes % (Manual) 12.0 L Monocytes % (Manual) Eosinophils % (Manual) Basophils % (Manual) Nucleated RBC % Seg Neutrophils # Seg Neutrophils # Man Lymphocytes # (Manual) Monocytes # (Manual) Eosinophils # (Manual) PT INR Fibrinogen dRVVT Confirm Interp Factor V Activity POC ABG pH 7.475 H POC ABG pCO2 33.3 L POC ABG pO2 140 H Sodium Potassium Chloride Carbon Dioxide BUN Creatinine Glucose POC Glucose 141 H Lactic Acid Calcium Phosphorus Magnesium Direct Bilirubin ALT Alkaline Phosphatase Troponin T C-Reactive Protein Total Protein Albumin Triglycerides Cholesterol LDL Cholesterol Direct HDL Cholesterol Urine WBC (Auto) Urine Creatinine Urine Total Protein Vancomycin Trough Rheumatoid Factor Complement C4 Miscellaneous Test Crossmatch 10/05/16 10/05/16 10/05/16 05:00 05:09 12:58 WBC RBC Hgb Hct MCV MCH MCHC RDW Plt Count Lymph % (Auto) [place] % (Auto) Lymph # [place] # Baso # Seg Neutrophils % Seg Neuts % (Manual) Lymphocytes % (Manual) Monocytes % (Manual) Eosinophils % (Manual) Basophils % (Manual) Nucleated RBC % Seg Neutrophils # Seg Neutrophils # Man Lymphocytes # (Manual) Monocytes # (Manual) Eosinophils # (Manual) PT INR Fibrinogen dRVVT Confirm Interp Factor V Activity POC ABG pH POC ABG pCO2 POC ABG pO2 Sodium 131 L Potassium Chloride 94.0 L Carbon Dioxide 20 L BUN 22 H Creatinine 2.0 H Glucose 123 H POC Glucose 166 H 179 H Lactic Acid Calcium 7.7 L Phosphorus 2.20 L D Magnesium Direct Bilirubin ALT Alkaline Phosphatase Troponin T C-Reactive Protein Total Protein Albumin Triglycerides Cholesterol LDL Cholesterol Direct HDL Cholesterol Urine WBC (Auto) Urine Creatinine Urine Total Protein Vancomycin Trough Rheumatoid Factor Complement C4 Miscellaneous Test Crossmatch 10/05/16 10/05/16 10/05/16 15:50 18:53 23:12 WBC RBC Hgb Hct MCV MCH MCHC RDW Plt Count Lymph % (Auto) [place] % (Auto) Lymph # [place] # Baso # Seg Neutrophils % Seg Neuts % (Manual) Lymphocytes % (Manual) Monocytes % (Manual) Eosinophils % (Manual) Basophils % (Manual) Nucleated RBC % Seg Neutrophils # Seg Neutrophils # Man Lymphocytes # (Manual) Monocytes # (Manual) Eosinophils # (Manual) PT INR Fibrinogen dRVVT Confirm Interp Factor V Activity POC ABG pH POC ABG pCO2 POC ABG pO2 Sodium Potassium Chloride Carbon Dioxide BUN Creatinine Glucose POC Glucose 150 H 164 H Lactic Acid Calcium Phosphorus Magnesium Direct Bilirubin ALT Alkaline Phosphatase Troponin T C-Reactive Protein Total Protein Albumin Triglycerides Cholesterol LDL Cholesterol Direct HDL Cholesterol Urine WBC (Auto) Urine Creatinine Urine Total Protein Vancomycin Trough Rheumatoid Factor Complement C4 Miscellaneous Test Crossmatch See Detail 10/06/16 10/06/16 10/06/16 03:50 03:50 04:53 WBC RBC 3.00 L Hgb 8.6 L Hct 25.8 L MCV MCH MCHC RDW 17.9 H Plt Count 65 L Lymph % (Auto) [place] % (Auto) Lymph # [place] # Baso # Seg Neutrophils % Seg Neuts % (Manual) 30.0 L Lymphocytes % (Manual) 5.0 L Monocytes % (Manual) Eosinophils % (Manual) Basophils % (Manual) Nucleated RBC % Seg Neutrophils # Seg Neutrophils # Man Lymphocytes # (Manual) 0.4 L Monocytes # (Manual) Eosinophils # (Manual) PT INR Fibrinogen dRVVT Confirm Interp Factor V Activity POC ABG pH 7.310 L POC ABG pCO2 49.0 H POC ABG pO2 Sodium 133 L Potassium Chloride 95.9 L Carbon Dioxide BUN 26 H Creatinine 2.0 H Glucose 116 H POC Glucose Lactic Acid Calcium 7.8 L Phosphorus Magnesium Direct Bilirubin ALT Alkaline Phosphatase Troponin T C-Reactive Protein Total Protein Albumin Triglycerides Cholesterol LDL Cholesterol Direct HDL Cholesterol Urine WBC (Auto) Urine Creatinine Urine Total Protein Vancomycin Trough Rheumatoid Factor Complement C4 Miscellaneous Test Crossmatch 10/06/16 10/06/16 10/06/16 05:23 11:52 18:34 WBC RBC Hgb Hct MCV MCH MCHC RDW Plt Count Lymph % (Auto) [place] % (Auto) Lymph # [place] # Baso # Seg Neutrophils % Seg Neuts % (Manual) Lymphocytes % (Manual) Monocytes % (Manual) Eosinophils % (Manual) Basophils % (Manual) Nucleated RBC % Seg Neutrophils # Seg Neutrophils # Man Lymphocytes # (Manual) Monocytes # (Manual) Eosinophils # (Manual) PT INR Fibrinogen dRVVT Confirm Interp Factor V Activity POC ABG pH POC ABG pCO2 POC ABG pO2 Sodium Potassium Chloride Carbon Dioxide BUN Creatinine Glucose POC Glucose 126 H 116 H 129 H Lactic Acid Calcium Phosphorus Magnesium Direct Bilirubin ALT Alkaline Phosphatase Troponin T C-Reactive Protein Total Protein Albumin Triglycerides Cholesterol LDL Cholesterol Direct HDL Cholesterol Urine WBC (Auto) Urine Creatinine Urine Total Protein Vancomycin Trough Rheumatoid Factor Complement C4 Miscellaneous Test Crossmatch 10/07/16 10/07/16 10/07/16 03:45 05:00 10:00 WBC 17.0 H RBC 2.68 L Hgb 7.3 L Hct 25.3 L MCV MCH 27 L MCHC 29 L RDW 19.6 H Plt Count 74 L Lymph % (Auto) [place] % (Auto) Lymph # [place] # Baso # Seg Neutrophils % Seg Neuts % (Manual) Lymphocytes % (Manual) 12.0 L Monocytes % (Manual) Eosinophils % (Manual) Basophils % (Manual) Nucleated RBC % 4.0 H Seg Neutrophils # Seg Neutrophils # Man 10.7 H Lymphocytes # (Manual) Monocytes # (Manual) Eosinophils # (Manual) PT INR Fibrinogen dRVVT Confirm Interp Factor V Activity POC ABG pH POC ABG pCO2 POC ABG pO2 Sodium 130 L Potassium 3.2 L Chloride 93.9 L Carbon Dioxide 20 L BUN 44 H Creatinine 2.7 H Glucose 129 H POC Glucose Lactic Acid Calcium 7.4 L Phosphorus Magnesium Direct Bilirubin ALT 6 L Alkaline Phosphatase 195 H Troponin T C-Reactive Protein Total Protein 4.9 L Albumin 1.0 L Triglycerides Cholesterol LDL Cholesterol Direct HDL Cholesterol Urine WBC (Auto) Urine Creatinine Urine Total Protein Vancomycin Trough Rheumatoid Factor Complement C4 Miscellaneous Test Flexitest 1 H Crossmatch 10/07/16 10/07/16 10/07/16 10:00 11:24 18:10 WBC RBC Hgb Hct MCV MCH MCHC RDW Plt Count Lymph % (Auto) [place] % (Auto) Lymph # [place] # Baso # Seg Neutrophils % Seg Neuts % (Manual) Lymphocytes % (Manual) Monocytes % (Manual) Eosinophils % (Manual) Basophils % (Manual) Nucleated RBC % Seg Neutrophils # Seg Neutrophils # Man Lymphocytes # (Manual) Monocytes # (Manual) Eosinophils # (Manual) PT INR Fibrinogen dRVVT Confirm Interp Factor V Activity POC ABG pH POC ABG pCO2 POC ABG pO2 Sodium Potassium Chloride Carbon Dioxide BUN Creatinine Glucose POC Glucose 116 H 130 H Lactic Acid Calcium Phosphorus Magnesium Direct Bilirubin ALT Alkaline Phosphatase Troponin T C-Reactive Protein 19.40 H Total Protein Albumin Triglycerides Cholesterol LDL Cholesterol Direct HDL Cholesterol Urine WBC (Auto) Urine Creatinine Urine Total Protein Vancomycin Trough Rheumatoid Factor Complement C4 Miscellaneous Test Crossmatch 10/07/16 10/08/16 10/08/16 18:30 00:00 04:00 WBC RBC Hgb Hct MCV MCH MCHC RDW Plt Count Lymph % (Auto) [place] % (Auto) Lymph # [place] # Baso # Seg Neutrophils % Seg Neuts % (Manual) Lymphocytes % (Manual) Monocytes % (Manual) Eosinophils % (Manual) Basophils % (Manual) Nucleated RBC % Seg Neutrophils # Seg Neutrophils # Man Lymphocytes # (Manual) Monocytes # (Manual) Eosinophils # (Manual) PT INR Fibrinogen dRVVT Confirm Interp Factor V Activity POC ABG pH POC ABG pCO2 POC ABG pO2 Sodium 132 L Potassium 3.3 L Chloride 93.6 L Carbon Dioxide 17 L BUN 59 H Creatinine 2.7 H Glucose 121 H POC Glucose 122 H Lactic Acid Calcium 7.6 L Phosphorus Magnesium Direct Bilirubin ALT Alkaline Phosphatase Troponin T C-Reactive Protein Total Protein Albumin Triglycerides Cholesterol LDL Cholesterol Direct HDL Cholesterol Urine WBC (Auto) > 182.0 H Urine Creatinine Urine Total Protein Vancomycin Trough Rheumatoid Factor Complement C4 Miscellaneous Test Crossmatch 10/08/16 10/08/16 10/08/16 04:30 05:30 11:51 WBC RBC 5.15 H Hgb 14.4 H D Hct 44.5 H D MCV MCH MCHC RDW 19.5 H Plt Count 56 L Lymph % (Auto) [place] % (Auto) Lymph # [place] # Baso # Seg Neutrophils % Seg Neuts % (Manual) 24.0 L Lymphocytes % (Manual) 8.0 L Monocytes % (Manual) Eosinophils % (Manual) Basophils % (Manual) Nucleated RBC % 9.0 H Seg Neutrophils # Seg Neutrophils # Man Lymphocytes # (Manual) 0.7 L Monocytes # (Manual) Eosinophils # (Manual) PT INR Fibrinogen dRVVT Confirm Interp Factor V Activity POC ABG pH POC ABG pCO2 POC ABG pO2 Sodium Potassium Chloride Carbon Dioxide BUN Creatinine Glucose POC Glucose 125 H 150 H Lactic Acid Calcium Phosphorus Magnesium Direct Bilirubin ALT Alkaline Phosphatase Troponin T C-Reactive Protein Total Protein Albumin Triglycerides Cholesterol LDL Cholesterol Direct HDL Cholesterol Urine WBC (Auto) Urine Creatinine Urine Total Protein Vancomycin Trough Rheumatoid Factor Complement C4 Miscellaneous Test Crossmatch 10/08/16 10/08/16 10/08/16 12:49 17:07 19:30 WBC RBC Hgb 7.1 L D Hct 22.4 L D MCV MCH MCHC RDW Plt Count Lymph % (Auto) [place] % (Auto) Lymph # [place] # Baso # Seg Neutrophils % Seg Neuts % (Manual) Lymphocytes % (Manual) Monocytes % (Manual) Eosinophils % (Manual) Basophils % (Manual) Nucleated RBC % Seg Neutrophils # Seg Neutrophils # Man Lymphocytes # (Manual) Monocytes # (Manual) Eosinophils # (Manual) PT INR Fibrinogen dRVVT Confirm Interp Factor V Activity POC ABG pH POC ABG pCO2 28.2 L POC ABG pO2 111 H Sodium Potassium Chloride Carbon Dioxide BUN Creatinine Glucose POC Glucose 145 H Lactic Acid Calcium Phosphorus Magnesium Direct Bilirubin ALT Alkaline Phosphatase Troponin T C-Reactive Protein Total Protein Albumin Triglycerides Cholesterol LDL Cholesterol Direct HDL Cholesterol Urine WBC (Auto) Urine Creatinine Urine Total Protein Vancomycin Trough Rheumatoid Factor Complement C4 Miscellaneous Test Crossmatch 10/08/16 10/09/16 10/09/16 19:30 03:45 03:45 WBC 12.6 H RBC 2.36 L Hgb 6.7 L Hct 21.1 L MCV MCH MCHC RDW 19.5 H Plt Count 75 L Lymph % (Auto) [place] % (Auto) Lymph # [place] # Baso # Seg Neutrophils % Seg Neuts % (Manual) Lymphocytes % (Manual) Monocytes % (Manual) 10.0 H Eosinophils % (Manual) Basophils % (Manual) Nucleated RBC % 3.0 H Seg Neutrophils # Seg Neutrophils # Man Lymphocytes # (Manual) Monocytes # (Manual) 1.3 H Eosinophils # (Manual) PT 18.0 H INR 1.41 H Fibrinogen dRVVT Confirm Interp Factor V Activity POC ABG pH POC ABG pCO2 POC ABG pO2 Sodium 135 L Potassium Chloride Carbon Dioxide 17 L BUN 81 H Creatinine 3.2 H Glucose 109 H POC Glucose Lactic Acid Calcium 7.4 L Phosphorus 4.60 H D Magnesium Direct Bilirubin ALT Alkaline Phosphatase Troponin T C-Reactive Protein Total Protein Albumin Triglycerides Cholesterol LDL Cholesterol Direct HDL Cholesterol Urine WBC (Auto) Urine Creatinine Urine Total Protein Vancomycin Trough Rheumatoid Factor Complement C4 Miscellaneous Test Crossmatch 10/09/16 10/09/16 10/09/16 03:45 05:14 07:20 WBC RBC Hgb Hct MCV MCH MCHC RDW Plt Count Lymph % (Auto) [place] % (Auto) Lymph # [place] # Baso # Seg Neutrophils % Seg Neuts % (Manual) Lymphocytes % (Manual) Monocytes % (Manual) Eosinophils % (Manual) Basophils % (Manual) Nucleated RBC % Seg Neutrophils # Seg Neutrophils # Man Lymphocytes # (Manual) Monocytes # (Manual) Eosinophils # (Manual) PT 19.0 H INR 1.51 H Fibrinogen dRVVT Confirm Interp Factor V Activity POC ABG pH POC ABG pCO2 POC ABG pO2 Sodium Potassium Chloride Carbon Dioxide BUN Creatinine Glucose POC Glucose 151 H Lactic Acid Calcium Phosphorus Magnesium Direct Bilirubin ALT Alkaline Phosphatase Troponin T C-Reactive Protein Total Protein Albumin Triglycerides Cholesterol LDL Cholesterol Direct HDL Cholesterol Urine WBC (Auto) Urine Creatinine Urine Total Protein Vancomycin Trough Rheumatoid Factor Complement C4 Miscellaneous Test Crossmatch See Detail 10/09/16 10/09/16 10/09/16 11:46 16:20 16:43 WBC RBC Hgb 7.2 L Hct 22.2 L MCV MCH MCHC RDW Plt Count Lymph % (Auto) [place] % (Auto) Lymph # [place] # Baso # Seg Neutrophils % Seg Neuts % (Manual) Lymphocytes % (Manual) Monocytes % (Manual) Eosinophils % (Manual) Basophils % (Manual) Nucleated RBC % Seg Neutrophils # Seg Neutrophils # Man Lymphocytes # (Manual) Monocytes # (Manual) Eosinophils # (Manual) PT INR Fibrinogen dRVVT Confirm Interp Factor V Activity POC ABG pH POC ABG pCO2 POC ABG pO2 Sodium Potassium Chloride Carbon Dioxide BUN Creatinine Glucose POC Glucose 133 H 141 H Lactic Acid Calcium Phosphorus Magnesium Direct Bilirubin ALT Alkaline Phosphatase Troponin T C-Reactive Protein Total Protein Albumin Triglycerides Cholesterol LDL Cholesterol Direct HDL Cholesterol Urine WBC (Auto) Urine Creatinine Urine Total Protein Vancomycin Trough Rheumatoid Factor Complement C4 Miscellaneous Test Crossmatch 10/10/16 10/10/16 10/10/16 05:00 05:00 11:19 WBC 18.5 H RBC 2.19 L Hgb 6.4 L Hct 19.6 L* MCV MCH MCHC RDW 19.3 H Plt Count 93 L Lymph % (Auto) [place] % (Auto) Lymph # [place] # Baso # Seg Neutrophils % Seg Neuts % (Manual) Lymphocytes % (Manual) 10.0 L Monocytes % (Manual) Eosinophils % (Manual) Basophils % (Manual) Nucleated RBC % 4.0 H Seg Neutrophils # Seg Neutrophils # Man 11.3 H Lymphocytes # (Manual) Monocytes # (Manual) Eosinophils # (Manual) PT INR Fibrinogen dRVVT Confirm Interp Factor V Activity POC ABG pH POC ABG pCO2 POC ABG pO2 Sodium Potassium 5.7 H D Chloride Carbon Dioxide 16 L BUN 94 H Creatinine 3.1 H Glucose 131 H POC Glucose 153 H Lactic Acid Calcium 8.2 L Phosphorus 5.10 H Magnesium 2.40 H Direct Bilirubin 0.3 H ALT < 5 L Alkaline Phosphatase 319 H Troponin T C-Reactive Protein Total Protein 5.1 L Albumin 1.0 L Triglycerides Cholesterol LDL Cholesterol Direct HDL Cholesterol Urine WBC (Auto) Urine Creatinine Urine Total Protein Vancomycin Trough Rheumatoid Factor Complement C4 Miscellaneous Test Crossmatch 10/10/16 10/10/16 10/11/16 17:50 23:30 04:15 WBC RBC Hgb Hct MCV MCH MCHC RDW Plt Count Lymph % (Auto) [place] % (Auto) Lymph # [place] # Baso # Seg Neutrophils % Seg Neuts % (Manual) Lymphocytes % (Manual) Monocytes % (Manual) Eosinophils % (Manual) Basophils % (Manual) Nucleated RBC % Seg Neutrophils # Seg Neutrophils # Man Lymphocytes # (Manual) Monocytes # (Manual) Eosinophils # (Manual) PT INR Fibrinogen dRVVT Confirm Interp Factor V Activity POC ABG pH POC ABG pCO2 POC ABG pO2 Sodium Potassium Chloride 96.4 L Carbon Dioxide 21 L BUN 57 H Creatinine 2.1 H Glucose 151 H POC Glucose 146 H 141 H Lactic Acid Calcium 8.3 L Phosphorus Magnesium Direct Bilirubin ALT Alkaline Phosphatase Troponin T C-Reactive Protein Total Protein Albumin Triglycerides Cholesterol LDL Cholesterol Direct HDL Cholesterol Urine WBC (Auto) Urine Creatinine Urine Total Protein Vancomycin Trough Rheumatoid Factor Complement C4 Miscellaneous Test Crossmatch 10/11/16 10/11/16 10/11/16 04:15 04:15 05:30 WBC 28.3 H RBC 3.12 L Hgb 9.3 L Hct 28.7 L D MCV MCH MCHC RDW 17.7 H Plt Count 128 L Lymph % (Auto) [place] % (Auto) Lymph # [place] # Baso # Seg Neutrophils % Seg Neuts % (Manual) Lymphocytes % (Manual) Monocytes % (Manual) Eosinophils % (Manual) Basophils % (Manual) Nucleated RBC % Seg Neutrophils # Seg Neutrophils # Man Lymphocytes # (Manual) Monocytes # (Manual) Eosinophils # (Manual) PT INR Fibrinogen dRVVT Confirm Interp Factor V Activity POC ABG pH POC ABG pCO2 POC ABG pO2 Sodium Potassium Chloride Carbon Dioxide BUN Creatinine Glucose POC Glucose 167 H Lactic Acid Calcium Phosphorus Magnesium Direct Bilirubin ALT Alkaline Phosphatase Troponin T C-Reactive Protein 15.80 H Total Protein Albumin Triglycerides Cholesterol LDL Cholesterol Direct HDL Cholesterol Urine WBC (Auto) Urine Creatinine Urine Total Protein Vancomycin Trough Rheumatoid Factor Complement C4 Miscellaneous Test Crossmatch 10/11/16 10/11/16 10/11/16 11:40 15:49 23:57 WBC RBC Hgb Hct MCV MCH MCHC RDW Plt Count Lymph % (Auto) [place] % (Auto) Lymph # [place] # Baso # Seg Neutrophils % Seg Neuts % (Manual) Lymphocytes % (Manual) Monocytes % (Manual) Eosinophils % (Manual) Basophils % (Manual) Nucleated RBC % Seg Neutrophils # Seg Neutrophils # Man Lymphocytes # (Manual) Monocytes # (Manual) Eosinophils # (Manual) PT INR Fibrinogen dRVVT Confirm Interp Factor V Activity POC ABG pH POC ABG pCO2 POC ABG pO2 Sodium Potassium Chloride Carbon Dioxide BUN Creatinine Glucose POC Glucose 139 H 168 H 161 H Lactic Acid Calcium Phosphorus Magnesium Direct Bilirubin ALT Alkaline Phosphatase Troponin T C-Reactive Protein Total Protein Albumin Triglycerides Cholesterol LDL Cholesterol Direct HDL Cholesterol Urine WBC (Auto) Urine Creatinine Urine Total Protein Vancomycin Trough Rheumatoid Factor Complement C4 Miscellaneous Test Crossmatch 10/12/16 10/12/16 10/12/16 04:40 04:40 05:44 WBC 22.5 H RBC 2.88 L Hgb 8.8 L Hct 26.8 L MCV MCH MCHC RDW 17.8 H Plt Count Lymph % (Auto) [place] % (Auto) Lymph # [place] # Baso # Seg Neutrophils % Seg Neuts % (Manual) Lymphocytes % (Manual) Monocytes % (Manual) Eosinophils % (Manual) Basophils % (Manual) Nucleated RBC % Seg Neutrophils # Seg Neutrophils # Man Lymphocytes # (Manual) Monocytes # (Manual) Eosinophils # (Manual) PT INR Fibrinogen dRVVT Confirm Interp Factor V Activity POC ABG pH POC ABG pCO2 POC ABG pO2 Sodium 134 L Potassium Chloride 93.0 L Carbon Dioxide BUN 74 H Creatinine 2.5 H Glucose 137 H POC Glucose 158 H Lactic Acid Calcium 8.2 L Phosphorus Magnesium Direct Bilirubin ALT Alkaline Phosphatase Troponin T C-Reactive Protein Total Protein Albumin Triglycerides Cholesterol LDL Cholesterol Direct HDL Cholesterol Urine WBC (Auto) Urine Creatinine Urine Total Protein Vancomycin Trough Rheumatoid Factor Complement C4 Miscellaneous Test Crossmatch 10/12/16 10/12/16 10/12/16 12:27 18:18 23:46 WBC RBC Hgb Hct MCV MCH MCHC RDW Plt Count Lymph % (Auto) [place] % (Auto) Lymph # [place] # Baso # Seg Neutrophils % Seg Neuts % (Manual) Lymphocytes % (Manual) Monocytes % (Manual) Eosinophils % (Manual) Basophils % (Manual) Nucleated RBC % Seg Neutrophils # Seg Neutrophils # Man Lymphocytes # (Manual) Monocytes # (Manual) Eosinophils # (Manual) PT INR Fibrinogen dRVVT Confirm Interp Factor V Activity POC ABG pH POC ABG pCO2 POC ABG pO2 Sodium Potassium Chloride Carbon Dioxide BUN Creatinine Glucose POC Glucose 153 H 140 H 150 H Lactic Acid Calcium Phosphorus Magnesium Direct Bilirubin ALT Alkaline Phosphatase Troponin T C-Reactive Protein Total Protein Albumin Triglycerides Cholesterol LDL Cholesterol Direct HDL Cholesterol Urine WBC (Auto) Urine Creatinine Urine Total Protein Vancomycin Trough Rheumatoid Factor Complement C4 Miscellaneous Test Crossmatch 10/13/16 10/13/16 10/13/16 06:22 09:20 12:29 WBC RBC Hgb Hct MCV MCH MCHC RDW Plt Count Lymph % (Auto) [place] % (Auto) Lymph # [place] # Baso # Seg Neutrophils % Seg Neuts % (Manual) Lymphocytes % (Manual) Monocytes % (Manual) Eosinophils % (Manual) Basophils % (Manual) Nucleated RBC % Seg Neutrophils # Seg Neutrophils # Man Lymphocytes # (Manual) Monocytes # (Manual) Eosinophils # (Manual) PT INR Fibrinogen dRVVT Confirm Interp Factor V Activity POC ABG pH POC ABG pCO2 POC ABG pO2 Sodium Potassium Chloride Carbon Dioxide BUN Creatinine Glucose POC Glucose 165 H 193 H Lactic Acid Calcium Phosphorus Magnesium Direct Bilirubin ALT Alkaline Phosphatase Troponin T C-Reactive Protein Total Protein Albumin Triglycerides Cholesterol LDL Cholesterol Direct HDL Cholesterol Urine WBC (Auto) Urine Creatinine Urine Total Protein Vancomycin Trough Rheumatoid Factor Complement C4 Miscellaneous Test Flexitest 1 H Crossmatch 10/13/16 10/13/16 10/13/16 18:09 Unknown Unknown WBC 23.4 H RBC 2.83 L Hgb 8.7 L Hct 26.1 L MCV MCH MCHC RDW 18.1 H Plt Count Lymph % (Auto) [place] % (Auto) Lymph # [place] # Baso # Seg Neutrophils % Seg Neuts % (Manual) Lymphocytes % (Manual) Monocytes % (Manual) Eosinophils % (Manual) Basophils % (Manual) Nucleated RBC % Seg Neutrophils # Seg Neutrophils # Man Lymphocytes # (Manual) Monocytes # (Manual) Eosinophils # (Manual) PT INR Fibrinogen dRVVT Confirm Interp Factor V Activity POC ABG pH POC ABG pCO2 POC ABG pO2 Sodium Potassium Chloride 95.8 L Carbon Dioxide BUN 82 H Creatinine 2.6 H Glucose 152 H POC Glucose 166 H Lactic Acid Calcium Phosphorus Magnesium Direct Bilirubin ALT Alkaline Phosphatase Troponin T C-Reactive Protein Total Protein Albumin Triglycerides Cholesterol LDL Cholesterol Direct HDL Cholesterol Urine WBC (Auto) Urine Creatinine Urine Total Protein Vancomycin Trough Rheumatoid Factor Complement C4 Miscellaneous Test Crossmatch 10/14/16 10/14/16 10/14/16 05:38 06:35 08:10 WBC 20.7 H RBC 2.81 L Hgb 8.4 L Hct 27.2 L MCV MCH MCHC RDW 19.4 H Plt Count Lymph % (Auto) [place] % (Auto) Lymph # [place] # Baso # Seg Neutrophils % Seg Neuts % (Manual) Lymphocytes % (Manual) Monocytes % (Manual) Eosinophils % (Manual) Basophils % (Manual) Nucleated RBC % Seg Neutrophils # Seg Neutrophils # Man Lymphocytes # (Manual) Monocytes # (Manual) Eosinophils # (Manual) PT INR Fibrinogen dRVVT Confirm Interp Factor V Activity POC ABG pH POC ABG pCO2 POC ABG pO2 Sodium Potassium Chloride Carbon Dioxide BUN 58 H Creatinine 1.9 H Glucose 169 H POC Glucose 195 H Lactic Acid Calcium Phosphorus Magnesium Direct Bilirubin ALT Alkaline Phosphatase Troponin T C-Reactive Protein Total Protein Albumin Triglycerides Cholesterol LDL Cholesterol Direct HDL Cholesterol Urine WBC (Auto) Urine Creatinine Urine Total Protein Vancomycin Trough Rheumatoid Factor Complement C4 Miscellaneous Test Crossmatch 10/14/16 10/14/16 10/14/16 11:44 17:13 23:28 WBC RBC Hgb Hct MCV MCH MCHC RDW Plt Count Lymph % (Auto) [place] % (Auto) Lymph # [place] # Baso # Seg Neutrophils % Seg Neuts % (Manual) Lymphocytes % (Manual) Monocytes % (Manual) Eosinophils % (Manual) Basophils % (Manual) Nucleated RBC % Seg Neutrophils # Seg Neutrophils # Man Lymphocytes # (Manual) Monocytes # (Manual) Eosinophils # (Manual) PT INR Fibrinogen dRVVT Confirm Interp Factor V Activity POC ABG pH POC ABG pCO2 POC ABG pO2 Sodium Potassium Chloride Carbon Dioxide BUN Creatinine Glucose POC Glucose 174 H 121 H 151 H Lactic Acid Calcium Phosphorus Magnesium Direct Bilirubin ALT Alkaline Phosphatase Troponin T C-Reactive Protein Total Protein Albumin Triglycerides Cholesterol LDL Cholesterol Direct HDL Cholesterol Urine WBC (Auto) Urine Creatinine Urine Total Protein Vancomycin Trough Rheumatoid Factor Complement C4 Miscellaneous Test Crossmatch 10/15/16 10/15/16 10/15/16 05:06 12:26 17:48 WBC RBC Hgb Hct MCV MCH MCHC RDW Plt Count Lymph % (Auto) [place] % (Auto) Lymph # [place] # Baso # Seg Neutrophils % Seg Neuts % (Manual) Lymphocytes % (Manual) Monocytes % (Manual) Eosinophils % (Manual) Basophils % (Manual) Nucleated RBC % Seg Neutrophils # Seg Neutrophils # Man Lymphocytes # (Manual) Monocytes # (Manual) Eosinophils # (Manual) PT INR Fibrinogen dRVVT Confirm Interp Factor V Activity POC ABG pH POC ABG pCO2 POC ABG pO2 Sodium Potassium Chloride Carbon Dioxide BUN Creatinine Glucose POC Glucose 151 H 149 H 153 H Lactic Acid Calcium Phosphorus Magnesium Direct Bilirubin ALT Alkaline Phosphatase Troponin T C-Reactive Protein Total Protein Albumin Triglycerides Cholesterol LDL Cholesterol Direct HDL Cholesterol Urine WBC (Auto) Urine Creatinine Urine Total Protein Vancomycin Trough Rheumatoid Factor Complement C4 Miscellaneous Test Crossmatch 10/15/16 10/15/16 10/16/16 Unknown Unknown 00:02 WBC 23.4 H RBC 2.78 L Hgb 8.5 L Hct 25.7 L MCV MCH MCHC RDW 18.7 H Plt Count Lymph % (Auto) [place] % (Auto) Lymph # [place] # Baso # Seg Neutrophils % Seg Neuts % (Manual) Lymphocytes % (Manual) Monocytes % (Manual) Eosinophils % (Manual) Basophils % (Manual) Nucleated RBC % Seg Neutrophils # Seg Neutrophils # Man Lymphocytes # (Manual) Monocytes # (Manual) Eosinophils # (Manual) PT INR Fibrinogen dRVVT Confirm Interp Factor V Activity POC ABG pH POC ABG pCO2 POC ABG pO2 Sodium Potassium Chloride Carbon Dioxide BUN 73 H Creatinine 2.3 H Glucose 120 H POC Glucose 137 H Lactic Acid Calcium Phosphorus Magnesium Direct Bilirubin ALT Alkaline Phosphatase Troponin T C-Reactive Protein Total Protein Albumin Triglycerides Cholesterol LDL Cholesterol Direct HDL Cholesterol Urine WBC (Auto) Urine Creatinine Urine Total Protein Vancomycin Trough Rheumatoid Factor Complement C4 Miscellaneous Test Crossmatch 10/16/16 10/16/16 10/16/16 05:44 06:25 06:25 WBC 22.5 H RBC 2.76 L Hgb 8.3 L Hct 25.2 L MCV MCH MCHC RDW 18.3 H Plt Count Lymph % (Auto) [place] % (Auto) Lymph # [place] # Baso # Seg Neutrophils % Seg Neuts % (Manual) Lymphocytes % (Manual) Monocytes % (Manual) Eosinophils % (Manual) Basophils % (Manual) Nucleated RBC % Seg Neutrophils # Seg Neutrophils # Man Lymphocytes # (Manual) Monocytes # (Manual) Eosinophils # (Manual) PT INR Fibrinogen dRVVT Confirm Interp Factor V Activity POC ABG pH POC ABG pCO2 POC ABG pO2 Sodium Potassium Chloride Carbon Dioxide BUN 92 H Creatinine 3.0 H Glucose 138 H POC Glucose 110 H Lactic Acid Calcium Phosphorus Magnesium Direct Bilirubin ALT Alkaline Phosphatase Troponin T C-Reactive Protein Total Protein Albumin Triglycerides Cholesterol LDL Cholesterol Direct HDL Cholesterol Urine WBC (Auto) Urine Creatinine Urine Total Protein Vancomycin Trough Rheumatoid Factor Complement C4 Miscellaneous Test Crossmatch 10/16/16 10/16/16 10/16/16 11:27 11:48 17:36 WBC RBC Hgb Hct MCV MCH MCHC RDW Plt Count Lymph % (Auto) [place] % (Auto) Lymph # [place] # Baso # Seg Neutrophils % Seg Neuts % (Manual) Lymphocytes % (Manual) Monocytes % (Manual) Eosinophils % (Manual) Basophils % (Manual) Nucleated RBC % Seg Neutrophils # Seg Neutrophils # Man Lymphocytes # (Manual) Monocytes # (Manual) Eosinophils # (Manual) PT INR Fibrinogen dRVVT Confirm Interp Factor V Activity POC ABG pH 7.582 H POC ABG pCO2 27.4 L POC ABG pO2 110 H Sodium Potassium Chloride Carbon Dioxide BUN Creatinine Glucose POC Glucose 121 H 133 H Lactic Acid Calcium Phosphorus Magnesium Direct Bilirubin ALT Alkaline Phosphatase Troponin T C-Reactive Protein Total Protein Albumin Triglycerides Cholesterol LDL Cholesterol Direct HDL Cholesterol Urine WBC (Auto) Urine Creatinine Urine Total Protein Vancomycin Trough Rheumatoid Factor Complement C4 Miscellaneous Test Crossmatch 10/16/16 10/17/16 10/17/16 20:48 04:24 04:24 WBC 21.4 H RBC 2.72 L Hgb 8.0 L Hct 25.2 L MCV MCH MCHC RDW 18.0 H Plt Count Lymph % (Auto) [place] % (Auto) Lymph # [place] # Baso # Seg Neutrophils % Seg Neuts % (Manual) Lymphocytes % (Manual) Monocytes % (Manual) Eosinophils % (Manual) Basophils % (Manual) Nucleated RBC % Seg Neutrophils # Seg Neutrophils # Man Lymphocytes # (Manual) Monocytes # (Manual) Eosinophils # (Manual) PT INR Fibrinogen dRVVT Confirm Interp Factor V Activity POC ABG pH 7.561 H POC ABG pCO2 24.4 L POC ABG pO2 77 L Sodium 148 H Potassium Chloride Carbon Dioxide BUN 104 H Creatinine 3.0 H Glucose 149 H POC Glucose Lactic Acid Calcium Phosphorus Magnesium Direct Bilirubin ALT Alkaline Phosphatase 138 H Troponin T C-Reactive Protein Total Protein 6.2 L Albumin 1.5 L Triglycerides Cholesterol LDL Cholesterol Direct HDL Cholesterol Urine WBC (Auto) Urine Creatinine Urine Total Protein Vancomycin Trough Rheumatoid Factor Complement C4 Miscellaneous Test Crossmatch 10/17/16 10/17/16 10/17/16 06:02 12:17 17:14 WBC RBC Hgb Hct MCV MCH MCHC RDW Plt Count Lymph % (Auto) [place] % (Auto) Lymph # [place] # Baso # Seg Neutrophils % Seg Neuts % (Manual) Lymphocytes % (Manual) Monocytes % (Manual) Eosinophils % (Manual) Basophils % (Manual) Nucleated RBC % Seg Neutrophils # Seg Neutrophils # Man Lymphocytes # (Manual) Monocytes # (Manual) Eosinophils # (Manual) PT INR Fibrinogen dRVVT Confirm Interp Factor V Activity POC ABG pH POC ABG pCO2 POC ABG pO2 Sodium Potassium Chloride Carbon Dioxide BUN Creatinine Glucose POC Glucose 170 H 167 H 126 H Lactic Acid Calcium Phosphorus Magnesium Direct Bilirubin ALT Alkaline Phosphatase Troponin T C-Reactive Protein Total Protein Albumin Triglycerides Cholesterol LDL Cholesterol Direct HDL Cholesterol Urine WBC (Auto) Urine Creatinine Urine Total Protein Vancomycin Trough Rheumatoid Factor Complement C4 Miscellaneous Test Crossmatch 10/17/16 10/18/16 10/18/16 23:17 04:00 04:00 WBC 20.7 H RBC 2.47 L Hgb 7.4 L Hct 22.9 L MCV MCH MCHC RDW 17.5 H Plt Count Lymph % (Auto) [place] % (Auto) Lymph # [place] # Baso # Seg Neutrophils % Seg Neuts % (Manual) Lymphocytes % (Manual) Monocytes % (Manual) Eosinophils % (Manual) Basophils % (Manual) Nucleated RBC % Seg Neutrophils # Seg Neutrophils # Man Lymphocytes # (Manual) Monocytes # (Manual) Eosinophils # (Manual) PT INR Fibrinogen dRVVT Confirm Interp Factor V Activity POC ABG pH POC ABG pCO2 POC ABG pO2 Sodium 149 H Potassium Chloride 107.9 H Carbon Dioxide 20 L BUN 117 H Creatinine 3.2 H Glucose 119 H POC Glucose 121 H Lactic Acid Calcium Phosphorus Magnesium Direct Bilirubin ALT Alkaline Phosphatase Troponin T C-Reactive Protein Total Protein Albumin Triglycerides Cholesterol LDL Cholesterol Direct HDL Cholesterol Urine WBC (Auto) Urine Creatinine Urine Total Protein Vancomycin Trough Rheumatoid Factor Complement C4 Miscellaneous Test Crossmatch 10/18/16 10/18/16 10/18/16 05:23 10:46 17:30 WBC RBC Hgb Hct MCV MCH MCHC RDW Plt Count Lymph % (Auto) [place] % (Auto) Lymph # [place] # Baso # Seg Neutrophils % Seg Neuts % (Manual) Lymphocytes % (Manual) Monocytes % (Manual) Eosinophils % (Manual) Basophils % (Manual) Nucleated RBC % Seg Neutrophils # Seg Neutrophils # Man Lymphocytes # (Manual) Monocytes # (Manual) Eosinophils # (Manual) PT INR Fibrinogen dRVVT Confirm Interp Factor V Activity POC ABG pH POC ABG pCO2 POC ABG pO2 Sodium Potassium Chloride Carbon Dioxide BUN Creatinine Glucose POC Glucose 119 H 155 H 124 H Lactic Acid Calcium Phosphorus Magnesium Direct Bilirubin ALT Alkaline Phosphatase Troponin T C-Reactive Protein Total Protein Albumin Triglycerides Cholesterol LDL Cholesterol Direct HDL Cholesterol Urine WBC (Auto) Urine Creatinine Urine Total Protein Vancomycin Trough Rheumatoid Factor Complement C4 Miscellaneous Test Crossmatch 10/19/16 10/19/16 10/19/16 04:00 04:00 05:25 WBC 17.4 H RBC 2.54 L Hgb 7.7 L Hct 23.6 L MCV MCH MCHC RDW 17.3 H Plt Count Lymph % (Auto) [place] % (Auto) Lymph # [place] # Baso # Seg Neutrophils % Seg Neuts % (Manual) Lymphocytes % (Manual) Monocytes % (Manual) Eosinophils % (Manual) Basophils % (Manual) Nucleated RBC % Seg Neutrophils # Seg Neutrophils # Man Lymphocytes # (Manual) Monocytes # (Manual) Eosinophils # (Manual) PT INR Fibrinogen dRVVT Confirm Interp Factor V Activity POC ABG pH POC ABG pCO2 POC ABG pO2 Sodium Potassium Chloride Carbon Dioxide BUN 72 H Creatinine 2.1 H Glucose 116 H POC Glucose 119 H Lactic Acid Calcium Phosphorus Magnesium Direct Bilirubin ALT Alkaline Phosphatase Troponin T C-Reactive Protein Total Protein Albumin Triglycerides Cholesterol LDL Cholesterol Direct HDL Cholesterol Urine WBC (Auto) Urine Creatinine Urine Total Protein Vancomycin Trough Rheumatoid Factor Complement C4 Miscellaneous Test Crossmatch 10/19/16 10/19/16 10/20/16 11:46 23:59 06:00 WBC RBC Hgb Hct MCV MCH MCHC RDW Plt Count Lymph % (Auto) [place] % (Auto) Lymph # [place] # Baso # Seg Neutrophils % Seg Neuts % (Manual) Lymphocytes % (Manual) Monocytes % (Manual) Eosinophils % (Manual) Basophils % (Manual) Nucleated RBC % Seg Neutrophils # Seg Neutrophils # Man Lymphocytes # (Manual) Monocytes # (Manual) Eosinophils # (Manual) PT INR Fibrinogen dRVVT Confirm Interp Factor V Activity POC ABG pH POC ABG pCO2 POC ABG pO2 Sodium Potassium Chloride Carbon Dioxide 17 L BUN 94 H Creatinine 2.7 H Glucose POC Glucose 116 H 117 H Lactic Acid Calcium Phosphorus Magnesium Direct Bilirubin ALT Alkaline Phosphatase Troponin T C-Reactive Protein Total Protein Albumin Triglycerides Cholesterol LDL Cholesterol Direct HDL Cholesterol Urine WBC (Auto) Urine Creatinine Urine Total Protein Vancomycin Trough Rheumatoid Factor Complement C4 Miscellaneous Test Crossmatch 10/20/16 10/20/16 10/20/16 06:00 11:49 16:00 WBC 19.7 H RBC 2.51 L Hgb 7.7 L Hct 23.5 L MCV MCH MCHC RDW 17.5 H Plt Count Lymph % (Auto) [place] % (Auto) Lymph # [place] # Baso # Seg Neutrophils % Seg Neuts % (Manual) Lymphocytes % (Manual) Monocytes % (Manual) Eosinophils % (Manual) Basophils % (Manual) Nucleated RBC % Seg Neutrophils # Seg Neutrophils # Man Lymphocytes # (Manual) Monocytes # (Manual) Eosinophils # (Manual) PT INR Fibrinogen dRVVT Confirm Interp Factor V Activity POC ABG pH POC ABG pCO2 POC ABG pO2 Sodium Potassium Chloride Carbon Dioxide BUN Creatinine Glucose POC Glucose 117 H Lactic Acid Calcium Phosphorus Magnesium Direct Bilirubin ALT Alkaline Phosphatase Troponin T C-Reactive Protein Total Protein Albumin Triglycerides Cholesterol LDL Cholesterol Direct HDL Cholesterol Urine WBC (Auto) Urine Creatinine Urine Total Protein Vancomycin Trough Rheumatoid Factor Complement C4 Miscellaneous Test Flexitest 1 H Crossmatch 10/20/16 10/20/16 10/21/16 18:36 23:39 04:00 WBC RBC Hgb Hct MCV MCH MCHC RDW Plt Count Lymph % (Auto) [place] % (Auto) Lymph # [place] # Baso # Seg Neutrophils % Seg Neuts % (Manual) Lymphocytes % (Manual) Monocytes % (Manual) Eosinophils % (Manual) Basophils % (Manual) Nucleated RBC % Seg Neutrophils # Seg Neutrophils # Man Lymphocytes # (Manual) Monocytes # (Manual) Eosinophils # (Manual) PT INR Fibrinogen dRVVT Confirm Interp Factor V Activity POC ABG pH POC ABG pCO2 POC ABG pO2 Sodium Potassium 5.4 H D Chloride Carbon Dioxide 15 L BUN 110 H Creatinine 3.0 H Glucose POC Glucose 127 H 114 H Lactic Acid Calcium Phosphorus Magnesium Direct Bilirubin ALT Alkaline Phosphatase Troponin T C-Reactive Protein Total Protein Albumin Triglycerides Cholesterol LDL Cholesterol Direct HDL Cholesterol Urine WBC (Auto) Urine Creatinine Urine Total Protein Vancomycin Trough Rheumatoid Factor Complement C4 Miscellaneous Test Crossmatch 10/21/16 10/21/16 10/22/16 05:54 23:46 05:18 WBC RBC Hgb Hct MCV MCH MCHC RDW Plt Count Lymph % (Auto) [place] % (Auto) Lymph # [place] # Baso # Seg Neutrophils % Seg Neuts % (Manual) Lymphocytes % (Manual) Monocytes % (Manual) Eosinophils % (Manual) Basophils % (Manual) Nucleated RBC % Seg Neutrophils # Seg Neutrophils # Man Lymphocytes # (Manual) Monocytes # (Manual) Eosinophils # (Manual) PT INR Fibrinogen dRVVT Confirm Interp Factor V Activity POC ABG pH POC ABG pCO2 POC ABG pO2 Sodium Potassium Chloride Carbon Dioxide BUN Creatinine Glucose POC Glucose 119 H 108 H 109 H Lactic Acid Calcium Phosphorus Magnesium Direct Bilirubin ALT Alkaline Phosphatase Troponin T C-Reactive Protein Total Protein Albumin Triglycerides Cholesterol LDL Cholesterol Direct HDL Cholesterol Urine WBC (Auto) Urine Creatinine Urine Total Protein Vancomycin Trough Rheumatoid Factor Complement C4 Miscellaneous Test Crossmatch 10/22/16 10/22/16 10/22/16 06:40 06:40 06:40 WBC 14.0 H RBC 2.03 L Hgb 7.0 L Hct 20.5 L MCV 98 H MCH 34 H MCHC 35 H RDW 17.8 H Plt Count Lymph % (Auto) [place] % (Auto) 9.9 H Lymph # [place] # 1.4 H Baso # 0.2 H Seg Neutrophils % 72.0 H Seg Neuts % (Manual) Lymphocytes % (Manual) Monocytes % (Manual) Eosinophils % (Manual) Basophils % (Manual) Nucleated RBC % Seg Neutrophils # 10.0 H Seg Neutrophils # Man Lymphocytes # (Manual) Monocytes # (Manual) Eosinophils # (Manual) PT INR Fibrinogen dRVVT Confirm Interp Factor V Activity POC ABG pH POC ABG pCO2 POC ABG pO2 Sodium 130 L D Potassium Chloride 92.4 L Carbon Dioxide 20 L BUN 50 H Creatinine 1.6 H Glucose 589 H* POC Glucose Lactic Acid Calcium 7.8 L D Phosphorus Magnesium 1.60 L Direct Bilirubin ALT Alkaline Phosphatase Troponin T C-Reactive Protein Total Protein Albumin Triglycerides Cholesterol LDL Cholesterol Direct HDL Cholesterol Urine WBC (Auto) Urine Creatinine Urine Total Protein Vancomycin Trough Rheumatoid Factor Complement C4 Miscellaneous Test Crossmatch 10/22/16 10/22/16 10/22/16 11:39 16:44 23:36 WBC RBC Hgb Hct MCV MCH MCHC RDW Plt Count Lymph % (Auto) [place] % (Auto) Lymph # [place] # Baso # Seg Neutrophils % Seg Neuts % (Manual) Lymphocytes % (Manual) Monocytes % (Manual) Eosinophils % (Manual) Basophils % (Manual) Nucleated RBC % Seg Neutrophils # Seg Neutrophils # Man Lymphocytes # (Manual) Monocytes # (Manual) Eosinophils # (Manual) PT INR Fibrinogen dRVVT Confirm Interp Factor V Activity POC ABG pH POC ABG pCO2 POC ABG pO2 Sodium Potassium Chloride Carbon Dioxide BUN Creatinine Glucose POC Glucose 142 H 163 H 123 H Lactic Acid Calcium Phosphorus Magnesium Direct Bilirubin ALT Alkaline Phosphatase Troponin T C-Reactive Protein Total Protein Albumin Triglycerides Cholesterol LDL Cholesterol Direct HDL Cholesterol Urine WBC (Auto) Urine Creatinine Urine Total Protein Vancomycin Trough Rheumatoid Factor Complement C4 Miscellaneous Test Crossmatch 10/23/16 10/23/16 10/23/16 04:58 06:00 12:12 WBC RBC Hgb Hct MCV MCH MCHC RDW Plt Count Lymph % (Auto) [place] % (Auto) Lymph # [place] # Baso # Seg Neutrophils % Seg Neuts % (Manual) Lymphocytes % (Manual) Monocytes % (Manual) Eosinophils % (Manual) Basophils % (Manual) Nucleated RBC % Seg Neutrophils # Seg Neutrophils # Man Lymphocytes # (Manual) Monocytes # (Manual) Eosinophils # (Manual) PT INR Fibrinogen dRVVT Confirm Interp Factor V Activity POC ABG pH POC ABG pCO2 POC ABG pO2 Sodium 133 L Potassium 3.5 L Chloride 96.1 L Carbon Dioxide 18 L BUN 76 H Creatinine 2.1 H Glucose POC Glucose 133 H 138 H Lactic Acid Calcium 8.3 L Phosphorus Magnesium Direct Bilirubin ALT Alkaline Phosphatase Troponin T C-Reactive Protein Total Protein Albumin Triglycerides Cholesterol LDL Cholesterol Direct HDL Cholesterol Urine WBC (Auto) Urine Creatinine Urine Total Protein Vancomycin Trough Rheumatoid Factor Complement C4 Miscellaneous Test Crossmatch 10/23/16 10/23/16 10/24/16 16:53 23:37 04:00 WBC RBC Hgb Hct MCV MCH MCHC RDW Plt Count Lymph % (Auto) [place] % (Auto) Lymph # [place] # Baso # Seg Neutrophils % Seg Neuts % (Manual) Lymphocytes % (Manual) Monocytes % (Manual) Eosinophils % (Manual) Basophils % (Manual) Nucleated RBC % Seg Neutrophils # Seg Neutrophils # Man Lymphocytes # (Manual) Monocytes # (Manual) Eosinophils # (Manual) PT INR Fibrinogen dRVVT Confirm Interp Factor V Activity POC ABG pH POC ABG pCO2 POC ABG pO2 Sodium 131 L Potassium Chloride 94.5 L Carbon Dioxide 19 L BUN 97 H Creatinine 2.6 H Glucose 110 H POC Glucose 125 H 123 H Lactic Acid Calcium 8.3 L Phosphorus Magnesium Direct Bilirubin ALT Alkaline Phosphatase Troponin T C-Reactive Protein Total Protein Albumin Triglycerides Cholesterol LDL Cholesterol Direct HDL Cholesterol Urine WBC (Auto) Urine Creatinine Urine Total Protein Vancomycin Trough Rheumatoid Factor Complement C4 Miscellaneous Test Crossmatch 10/24/16 10/24/16 10/24/16 07:49 11:39 17:52 WBC RBC Hgb 6.0 L Hct 19.7 L* MCV MCH MCHC RDW Plt Count Lymph % (Auto) [place] % (Auto) Lymph # [place] # Baso # Seg Neutrophils % Seg Neuts % (Manual) Lymphocytes % (Manual) Monocytes % (Manual) Eosinophils % (Manual) Basophils % (Manual) Nucleated RBC % Seg Neutrophils # Seg Neutrophils # Man Lymphocytes # (Manual) Monocytes # (Manual) Eosinophils # (Manual) PT INR Fibrinogen dRVVT Confirm Interp Factor V Activity POC ABG pH POC ABG pCO2 POC ABG pO2 Sodium Potassium Chloride Carbon Dioxide BUN Creatinine Glucose POC Glucose 106 H 158 H Lactic Acid Calcium Phosphorus Magnesium Direct Bilirubin ALT Alkaline Phosphatase Troponin T C-Reactive Protein Total Protein Albumin Triglycerides Cholesterol LDL Cholesterol Direct HDL Cholesterol Urine WBC (Auto) Urine Creatinine Urine Total Protein Vancomycin Trough Rheumatoid Factor Complement C4 Miscellaneous Test Crossmatch 10/24/16 10/24/16 10/24/16 20:00 22:27 Unknown WBC RBC Hgb 9.4 L D Hct 27.5 L D MCV MCH MCHC RDW Plt Count Lymph % (Auto) [place] % (Auto) Lymph # [place] # Baso # Seg Neutrophils % Seg Neuts % (Manual) Lymphocytes % (Manual) Monocytes % (Manual) Eosinophils % (Manual) Basophils % (Manual) Nucleated RBC % Seg Neutrophils # Seg Neutrophils # Man Lymphocytes # (Manual) Monocytes # (Manual) Eosinophils # (Manual) PT INR Fibrinogen dRVVT Confirm Interp Factor V Activity POC ABG pH POC ABG pCO2 POC ABG pO2 Sodium Potassium Chloride Carbon Dioxide BUN Creatinine Glucose POC Glucose 125 H Lactic Acid Calcium Phosphorus Magnesium Direct Bilirubin ALT Alkaline Phosphatase Troponin T C-Reactive Protein Total Protein Albumin Triglycerides Cholesterol LDL Cholesterol Direct HDL Cholesterol Urine WBC (Auto) Urine Creatinine Urine Total Protein Vancomycin Trough Rheumatoid Factor Complement C4 Miscellaneous Test Crossmatch See Detail 10/25/16 10/25/16 10/25/16 04:00 04:00 04:00 WBC 14.2 H RBC 2.98 L Hgb 9.0 L Hct 26.2 L MCV MCH MCHC RDW 16.6 H Plt Count Lymph % (Auto) [place] % (Auto) 10.7 H Lymph # [place] # 1.5 H Baso # Seg Neutrophils % 73.6 H Seg Neuts % (Manual) Lymphocytes % (Manual) Monocytes % (Manual) Eosinophils % (Manual) Basophils % (Manual) Nucleated RBC % Seg Neutrophils # 10.5 H Seg Neutrophils # Man Lymphocytes # (Manual) Monocytes # (Manual) Eosinophils # (Manual) PT INR Fibrinogen dRVVT Confirm Interp Factor V Activity POC ABG pH POC ABG pCO2 POC ABG pO2 Sodium 132 L Potassium Chloride 94.7 L Carbon Dioxide BUN 51 H Creatinine 1.6 H Glucose 130 H POC Glucose Lactic Acid Calcium 8.3 L Phosphorus 1.60 L D Magnesium Direct Bilirubin ALT Alkaline Phosphatase Troponin T C-Reactive Protein Total Protein Albumin Triglycerides Cholesterol LDL Cholesterol Direct HDL Cholesterol Urine WBC (Auto) Urine Creatinine Urine Total Protein Vancomycin Trough Rheumatoid Factor Complement C4 Miscellaneous Test Crossmatch 10/25/16 10/25/16 10/25/16 04:32 11:48 17:22 WBC RBC Hgb Hct MCV MCH MCHC RDW Plt Count Lymph % (Auto) [place] % (Auto) Lymph # [place] # Baso # Seg Neutrophils % Seg Neuts % (Manual) Lymphocytes % (Manual) Monocytes % (Manual) Eosinophils % (Manual) Basophils % (Manual) Nucleated RBC % Seg Neutrophils # Seg Neutrophils # Man Lymphocytes # (Manual) Monocytes # (Manual) Eosinophils # (Manual) PT INR Fibrinogen dRVVT Confirm Interp Factor V Activity POC ABG pH POC ABG pCO2 POC ABG pO2 Sodium Potassium Chloride Carbon Dioxide BUN Creatinine Glucose POC Glucose 124 H 171 H 120 H Lactic Acid Calcium Phosphorus Magnesium Direct Bilirubin ALT Alkaline Phosphatase Troponin T C-Reactive Protein Total Protein Albumin Triglycerides Cholesterol LDL Cholesterol Direct HDL Cholesterol Urine WBC (Auto) Urine Creatinine Urine Total Protein Vancomycin Trough Rheumatoid Factor Complement C4 Miscellaneous Test Crossmatch 10/26/16 10/26/16 10/26/16 04:54 07:06 07:06 WBC 16.9 H RBC 3.06 L Hgb 9.1 L Hct 26.9 L MCV MCH MCHC RDW 16.9 H Plt Count Lymph % (Auto) [place] % (Auto) Lymph # [place] # Baso # Seg Neutrophils % Seg Neuts % (Manual) 71.0 H Lymphocytes % (Manual) 5.0 L Monocytes % (Manual) 12.0 H Eosinophils % (Manual) Basophils % (Manual) Nucleated RBC % Seg Neutrophils # Seg Neutrophils # Man 12.0 H Lymphocytes # (Manual) 0.8 L Monocytes # (Manual) 2.0 H Eosinophils # (Manual) PT INR Fibrinogen dRVVT Confirm Interp Factor V Activity POC ABG pH POC ABG pCO2 POC ABG pO2 Sodium 135 L Potassium Chloride 97.1 L Carbon Dioxide BUN 73 H Creatinine 2.2 H Glucose 117 H POC Glucose 123 H Lactic Acid Calcium Phosphorus 1.70 L Magnesium Direct Bilirubin ALT Alkaline Phosphatase Troponin T C-Reactive Protein Total Protein Albumin Triglycerides Cholesterol LDL Cholesterol Direct HDL Cholesterol Urine WBC (Auto) Urine Creatinine Urine Total Protein Vancomycin Trough Rheumatoid Factor Complement C4 Miscellaneous Test Crossmatch 10/26/16 10/26/16 10/26/16 12:12 17:29 23:42 WBC RBC Hgb Hct MCV MCH MCHC RDW Plt Count Lymph % (Auto) [place] % (Auto) Lymph # [place] # Baso # Seg Neutrophils % Seg Neuts % (Manual) Lymphocytes % (Manual) Monocytes % (Manual) Eosinophils % (Manual) Basophils % (Manual) Nucleated RBC % Seg Neutrophils # Seg Neutrophils # Man Lymphocytes # (Manual) Monocytes # (Manual) Eosinophils # (Manual) PT INR Fibrinogen dRVVT Confirm Interp Factor V Activity POC ABG pH POC ABG pCO2 POC ABG pO2 Sodium Potassium Chloride Carbon Dioxide BUN Creatinine Glucose POC Glucose 126 H 161 H 118 H Lactic Acid Calcium Phosphorus Magnesium Direct Bilirubin ALT Alkaline Phosphatase Troponin T C-Reactive Protein Total Protein Albumin Triglycerides Cholesterol LDL Cholesterol Direct HDL Cholesterol Urine WBC (Auto) Urine Creatinine Urine Total Protein Vancomycin Trough Rheumatoid Factor Complement C4 Miscellaneous Test Crossmatch 10/27/16 10/27/16 10/27/16 05:03 06:30 06:30 WBC 13.9 H RBC 3.09 L Hgb 9.2 L Hct 27.5 L MCV MCH MCHC RDW 17.0 H Plt Count Lymph % (Auto) [place] % (Auto) Lymph # [place] # Baso # Seg Neutrophils % Seg Neuts % (Manual) 78.0 H Lymphocytes % (Manual) Monocytes % (Manual) Eosinophils % (Manual) Basophils % (Manual) Nucleated RBC % 2.0 H Seg Neutrophils # Seg Neutrophils # Man 10.8 H Lymphocytes # (Manual) Monocytes # (Manual) 1.0 H Eosinophils # (Manual) PT INR Fibrinogen dRVVT Confirm Interp Factor V Activity POC ABG pH POC ABG pCO2 POC ABG pO2 Sodium Potassium Chloride Carbon Dioxide BUN 40 H Creatinine 1.5 H Glucose 135 H POC Glucose 107 H Lactic Acid Calcium 8.3 L Phosphorus 1.30 L D Magnesium Direct Bilirubin ALT Alkaline Phosphatase Troponin T C-Reactive Protein Total Protein Albumin Triglycerides Cholesterol LDL Cholesterol Direct HDL Cholesterol Urine WBC (Auto) Urine Creatinine Urine Total Protein Vancomycin Trough Rheumatoid Factor Complement C4 Miscellaneous Test Crossmatch Allied health notes reviewed: RT
--- NOTE | 2016-10-27 09:48 | Progress Note ---
Assessment and Plan Assessment: 1) Recurrent Sepsis: fever restarted on 10/24 - likely abdominal wall abscess at surgical site-still draining copious purulence -S/p multiple episodes of sepsis - initially due to presumed aspiration pneumonia, then septic episode on 09/23 from Candidemia. Then from - peritonitis from gastric perforation +/- UTI. Current septic episode from surgical site infection. -CRP 19 --> 22 -Procalcitonin=24 --> 16 --> 4.3 -repeat CT abdomen 10/25 no leak no abscess. +small brit pleural effusion, increased air bronchograms R>L, track to old PEG. Persistent wall thickening sigmoid colon. -repeat blood cx - neg -Wound cx from surgical site infection + MDR Pseudomonas and Silvia albicans 2) Peritonitis: from gastric perforation from dislodged PEG with significant ascites -S/P exlap, repair of gastric perforation with wedge gastrectomy, abdominal washout, drain placement on 10/05. 3) Candidemia: -Blood cultures positive for Silvia albicans on 09/23 -Blood cultures positive on 09/25 -Blood cutlures negative on 09/30 -PICC line changed on 10/03 -Source ? gastric perf (PEG placed on 09/20) +/- TPN +/- central lines -TTE 10/07 no vegetations -PICC exchanged on 10/03 -fully treated with micafungin for 14 days last day 10/13 4) CA-UTI s/p gutierrez exchanged 5) Diarrhea - ? etiology ? antibiotic-induced, not better 6) Initial presumed aspiration pneumonia 7) Presumed UTI: urine cx 09/23 multiple species 8) Respiratory failure s/p trach 9) Recent CVA-left MCA CVA 10) Uncontrolled HTN 11) Acute on CKD 12) Extensive back skin peeling ? burn from gastric secretions. Doubt allergic reaction 13) Severe anemia; ? from GI bleed Plan: -monitor drainage -continue zosyn in view of MDR Pseudomonas only sens to zosyn day 7 of 14 -continue fluconazole day 8 of -contact isolation in view of MDR Pseudomonas -discussed with ICU staff Thank you Dr Matias for your consultation, will follow up with you. Pauline Carias MD Infectious Diseases Specialist [facility] ([facility] M [phone] O [phone] Subjective Date of service: 10/27/16 Principal diagnosis: Acute resp failure on MVS; S/P Acute CVA; Acute Encephalopathy; JUANITA Interval history: Remains with low grade fever, alert this am open eyes spontaneously, not following commands, on the vent via trach. Microbiology: Blood cultures: 09/13 neg 8/ Silvia albicans 09/25 Silvia 09/29 neg 10/07 NGTD Urine cultures: 09/10 neg 09/13 neg 8/4 10-100K mixed species 10/07 pending Respiratory cultures: 09/07 neg 09/13 neg 8 neg Wound cultures: 10/17 abd wall wound purulence + Pseudomonas MDR Stool cultures: Current Antimicrobials: fluconazole 10/19 zosyn 10/21 Previous Antimicrobials: Zosyn 10/07 Vancomycin PO 10/01 Metronidazole 09/25 Micafungin 09/27-10/13 Meropenem 10/10 Vanco 10/17 Objective - Exam Narrative Exam: General appearance: alert, non verbal, on the vent via trach no following commands Eyes: anicteric sclera, moist conjunctivae; PERRLA HENT: Atraumatic; oropharynx limited; Normal external ears. +NGT with greenish secretion Neck: +trach in place; supple, no thyromegaly or lymphadenopathy Lungs: coarse BS bilateral CV: tachycardic Abdomen: Soft, non-tender, +drain with purulent drainage, + diarrhea via rectal tube leaking. +old PEG site no drainage. Right sided Surgical site packed soaked with copious purulence Extremities: +peripheral edema no extremity lymphadenopathy Skin: sacral area wounds superficial no purulence Psych: somnolent . Neuro: somnolent non verbal on the vent. Lines: left arm PICC placed on 10/03 - Constitutional Vitals: Vital Signs Temp Pulse Resp BP Pulse Ox 98.9 F 123 H 25 H 185/106 100 10/27/16 07:39 10/27/16 09:30 10/27/16 07:30 10/27/16 09:30 10/27/16 08:36 Temperature -Last 24 Hours Temperature 98.9 F Temperature 100.5 F Temperature 101.2 F Temperature 100.1 F Temperature 100.6 F Temperature 100.6 F Temperature 99.6 F Temperature 99.6 F - Labs CBC & Chem 7: 10/27/16 06:30 10/27/16 06:30 Labs: Abnormal lab results 0910/26/16 10/26/16 Range/Units 12:12 17:29 23:42 WBC (4.5-11.0) K/mm3 RBC (3.65-5.03) M/mm3 Hgb (10.1-14.3) gm/dl Hct (30.3-42.9) % RDW (13.2-15.2) % Seg Neuts % (Manual) (40.0-70.0) % Nucleated RBC % (0.0-0.9) % Seg Neutrophils # Man (1.8-7.7) K/mm3 Monocytes # (Manual) (0.0-0.8) K/mm3 BUN (7-17) mg/dL Creatinine (0.7-1.2) mg/dL Glucose (65-100) mg/dL POC Glucose 126 H 161 H 118 H (70-105) Calcium (8.4-10.2) mg/dL Phosphorus (2.5-4.5) mg/dL 10/27/16 10/27/16 10/27/16 Range/Units 05:03 06:30 06:30 WBC 13.9 H (4.5-11.0) K/mm3 RBC 3.09 L (3.65-5.03) M/mm3 Hgb 9.2 L (10.1-14.3) gm/dl Hct 27.5 L (30.3-42.9) % RDW 17.0 H (13.2-15.2) % Seg Neuts % (Manual) 78.0 H (40.0-70.0) % Nucleated RBC % 2.0 H (0.0-0.9) % Seg Neutrophils # Man 10.8 H (1.8-7.7) K/mm3 Monocytes # (Manual) 1.0 H (0.0-0.8) K/mm3 BUN 40 H (7-17) mg/dL Creatinine 1.5 H (0.7-1.2) mg/dL Glucose 135 H (65-100) mg/dL POC Glucose 107 H (70-105) Calcium 8.3 L (8.4-10.2) mg/dL Phosphorus 1.30 L D (2.5-4.5) mg/dL
[2016-10-27] MEDS ORDERED: XYLOCAINE 2% INFILTRATI ONE (11:42)
[2016-10-27] MEDS ORDERED: NACL 0.9% 0 ML IR ONE (11:42)
[2016-10-27] MEDS ORDERED: HEPARIN/NS 5000 UNIT/500ML(CATH LAB) 500 ML IR ONE (11:47)
--- NOTE | 2016-10-27 12:00 | Progress Note ---
Assessment and Plan Assessment and plan: --Severe Sepsis with septic shock, recurrent. Patient still with fevers. Patient with UTI, candidemia and peritonitis due to gastric perforation and dislodged PEG Continue antibiotics per ID. patient with no fevers for the past 48 hours. --Peritonitis. Repeat CT scan of the abdomen reveals no abscess but there is persistent wall thickening involving the sigmoid colon and several loops of small bowel projecting into the pelvis. The parents suggests enteritis and colitis. --Acute hypoxic respiratory failure, status post tracheostomy, on vent more than 96hrs Pulmonary following --Acute massive CVA with mass effect; continue antiplatelets and statins --Oliguric acute kidney injury. Etiology secondary to ATN on CKD. Baseline creatinine is approximately 1.7. --Paroxysmal atrial fibrillation with rapid ventricular rate, failed cardioversion Continue current medications, Not a candidate for anticoagulation secondary to anemia thrombocytopenia and massive CVA --Anemia; probably secondary to GI bleeding Patient received multiple units of PRBC in the past, H&H has remained stable. re-consult GI if needed If patient has significant vaginal bleeding Consult BRAND RECORDER as needed -Toxic metabolic encephalopathy; supportive care --Diabetes mellitus type 2, Insulin/SSI --Severe protein caloric malnutrition, nutrition supplements to proceeding --s/p Thrombocytopenia. Now resolved --DVT prophylaxis, SCDs, no pharmacological agent given anemia , thrombocytopenia, massive stroke --Full code status, very poor prognosis Had family meetings 10/10/16, 10/14/16 plan of care poor prognosis was discussed per Dr. Means Dispo. Very poor prognosis. Patient needs LTAC placement. History Interval history: No new issues overnight. Patient still low-grade fevers. Hospitalist Physical - Constitutional Vitals: Temp Pulse Resp BP Pulse Ox 98.9 F 123 H 25 H 185/106 100 10/27/16 07:39 10/27/16 09:30 10/27/16 07:30 10/27/16 09:30 10/27/16 08:36 General appearance: Present: no acute distress, obese, other (on vent, non- responsive) - EENT Eyes: Present: PERRL, EOM intact ENT: hearing intact, clear oral mucosa, dentition normal - Neck Neck: Present: supple, normal ROM - Respiratory Respiratory effort: normal Respiratory: bilateral: CTA - Cardiovascular Rhythm: regular Heart Sounds: Present: S1 & S2. Absent: gallop, rub - Extremities Extremities: no ischemia, No edema, Full ROM - Abdominal General gastrointestinal: soft, non-tender, non-distended, normal bowel sounds - Integumentary Integumentary: Present: clear, warm, dry - Neurologic Neurologic: CNII-XII intact, moves all extremities Results - Labs CBC & Chem 7: 10/27/16 06:30 10/27/16 06:30 Labs: Laboratory Last Values WBC 13.9 K/mm3 (4.5-11.0) H 10/27/16 06:30 RBC 3.09 M/mm3 (3.65-5.03) L 10/27/16 06:30 Hgb 9.2 gm/dl (10.1-14.3) L 10/27/16 06:30 Hct 27.5 % (30.3-42.9) L 10/27/16 06:30 MCV 89 fl (79-97) 10/27/16 06:30 MCH 30 pg (28-32) 10/27/16 06:30 MCHC 34 % (30-34) 10/27/16 06:30 RDW 17.0 % (13.2-15.2) H 10/27/16 06:30 Plt Count 364 K/mm3 (140-440) 10/27/16 06:30 Lymph % (Auto) 14.0 % (13.4-35.0) 10/25/16 04:00 [place] % (Auto) 10.7 % (0.0-7.3) H 10/25/16 04:00 Eos % (Auto) 0.7 % (0.0-4.3) 10/25/16 04:00 Baso % (Auto) 1.0 % (0.0-1.8) 10/25/16 04:00 Lymph # 2.0 K/mm3 (1.2-5.4) 10/25/16 04:00 [place] # 1.5 K/mm3 (0.0-0.8) H 10/25/16 04:00 Eos # 0.1 K/mm3 (0.0-0.4) 10/25/16 04:00 Baso # 0.1 K/mm3 (0.0-0.1) 10/25/16 04:00 Add Manual Diff Complete 10/27/16 06:30 Total Counted 100 10/27/16 06:30 Seg Neutrophils % 73.6 % (40.0-70.0) H 10/25/16 04:00 Seg Neuts % (Manual) 78.0 % (40.0-70.0) H 10/27/16 06:30 Band Neutrophils % 0 % 10/27/16 06:30 Lymphocytes % (Manual) 14.0 % (13.4-35.0) 10/27/16 06:30 Reactive Lymphs % (Man) 0 % 10/27/16 06:30 Monocytes % (Manual) 7.0 % (0.0-7.3) 10/27/16 06:30 Eosinophils % (Manual) 0 % (0.0-4.3) 10/27/16 06:30 Basophils % (Manual) 1.0 % (0.0-1.8) 10/27/16 06:30 Metamyelocytes % 0 % 10/27/16 06:30 Myelocytes % 0 % 10/27/16 06:30 Promyelocytes % 0 % 10/27/16 06:30 Blast Cells % 0 % 10/27/16 06:30 Nucleated RBC % 2.0 % (0.0-0.9) H 10/27/16 06:30 Seg Neutrophils # 10.5 K/mm3 (1.8-7.7) H 10/25/16 04:00 Seg Neutrophils # Man 10.8 K/mm3 (1.8-7.7) H 10/27/16 06:30 Band Neutrophils # 0.0 K/mm3 10/27/16 06:30 Lymphocytes # (Manual) 1.9 K/mm3 (1.2-5.4) 10/27/16 06:30 Abs React Lymphs (Man) 0.0 K/mm3 10/27/16 06:30 Monocytes # (Manual) 1.0 K/mm3 (0.0-0.8) H 10/27/16 06:30 Eosinophils # (Manual) 0.0 K/mm3 (0.0-0.4) 10/27/16 06:30 Basophils # (Manual) 0.1 K/mm3 (0.0-0.1) 10/27/16 06:30 Metamyelocytes # 0.0 K/mm3 10/27/16 06:30 Myelocytes # 0.0 K/mm3 10/27/16 06:30 Promyelocytes # 0.0 K/mm3 10/27/16 06:30 Blast Cells # 0.0 K/mm3 10/27/16 06:30 Pathologist Review 09/13/16 04:00 WBC Morphology Not Reportable 10/27/16 06:30 Hypersegmented Neuts Not Reportable 10/27/16 06:30 Hyposegmented Neuts Not Reportable 10/27/16 06:30 Hypogranular Neuts Not Reportable 10/27/16 06:30 Smudge Cells Not Reportable 10/27/16 06:30 Toxic Granulation Not Reportable 10/27/16 06:30 Toxic Vacuolation Not Reportable 10/27/16 06:30 Dohle Bodies Not Reportable 10/27/16 06:30 Pelger-Huet Anomaly Not Reportable 10/27/16 06:30 Jasmina Rods Not Reportable 10/27/16 06:30 Platelet Estimate Cons 10/27/16 06:30 Clumped Platelets Not Reportable 10/27/16 06:30 Plt Clumps, EDTA Not Reportable 10/27/16 06:30 Large Platelets Few 10/27/16 06:30 Giant Platelets Not Reportable 10/27/16 06:30 Platelet Satelliting Not Reportable 10/27/16 06:30 Plt Morphology Comment Not Reportable 10/27/16 06:30 RBC Morphology Not Reportable 10/27/16 06:30 Dimorphic RBCs Not Reportable 10/27/16 06:30 Polychromasia Not Reportable 10/27/16 06:30 Hypochromasia Not Reportable 10/27/16 06:30 Poikilocytosis Not Reportable 10/27/16 06:30 Anisocytosis 1+ 10/27/16 06:30 Microcytosis Not Reportable 10/27/16 06:30 Macrocytosis Not Reportable 10/27/16 06:30 Spherocytes Not Reportable 10/27/16 06:30 Pappenheimer Bodies Not Reportable 10/27/16 06:30 Sickle Cells Not Reportable 10/27/16 06:30 Target Cells Not Reportable 10/27/16 06:30 Tear Drop Cells Not Reportable 10/27/16 06:30 Ovalocytes Not Reportable 10/27/16 06:30 Stomatocytes Few 10/06/16 03:50 Helmet Cells Not Reportable 10/27/16 06:30 [place] Bodies Not Reportable 10/27/16 06:30 [place] Rings Not Reportable 10/27/16 06:30 [place] Cells Not Reportable 10/27/16 06:30 Bite Cells Not Reportable 10/27/16 06:30 Crenated Cell Not Reportable 10/27/16 06:30 Elliptocytes Not Reportable 10/27/16 06:30 Acanthocytes (Spur) Not Reportable 10/27/16 06:30 Rouleaux Not Reportable 10/27/16 06:30 Hemoglobin C Crystals Not Reportable 10/27/16 06:30 Schistocytes Not Reportable 10/27/16 06:30 Malaria parasites Not Reportable 10/27/16 06:30 ESR > 140.0 mm/Hr (0-20) 09/08/16 11:48 Jun Bodies Not Reportable 10/27/16 06:30 Hem Pathologist Commnt No 10/27/16 06:30 PT 19.0 Sec. (12.2-14.9) H 10/09/16 03:45 INR 1.51 (0.87-1.13) H 10/09/16 03:45 APTT 33.0 Sec. (24.2-36.6) 10/09/16 03:45 Thrombin Time 16.8 Sec. (15.1-19.6) 09/03/16 00:10 Fibrinogen 750 mg/dl (211-480) H 09/08/16 11:48 Lupus Anticoagulant see below 09/12/16 09:59 LA PTT Baseline See scanned report 09/12/16 09:59 dRVVT Confirm Interp Positive (Negative) H 09/12/16 09:59 dRVVT Screen 50:50 See scanned report 09/12/16 09:59 dRVVT Mix Interpret See scanned report 09/12/16 09:59 Protein C Antigen 122 % (70-140) 09/08/16 15:35 Free Protein S 97 % normal (50-147) 09/08/16 15:35 Total Protein S 109 % (70-140) 09/08/16 15:35 Antithrombin III Ag 100 % (80-120) 09/08/16 15:35 Heparin Anti-Xa, Unfract Negative (Negative) 09/29/16 13:35 Factor V Activity 182 % (65-150) H 09/08/16 15:35 POC ABG pH 7.561 (7.35-7.45) H 10/16/16 20:48 POC ABG pCO2 24.4 (35-45) L 10/16/16 20:48 POC ABG pO2 77 (80-105) L 10/16/16 20:48 POC ABG HCO3 21.9 10/16/16 20:48 POC ABG Total CO2 23 10/16/16 20:48 POC ABG O2 Sat 97 10/16/16 20:48 POC ABG Base Excess 0 10/16/16 20:48 FiO2 25 % 10/16/16 20:48 Sodium 137 mmol/L (137-145) 10/27/16 06:30 Potassium 4.1 mmol/L (3.6-5.0) 10/27/16 06:30 Chloride 98.4 mmol/L (98-107) 10/27/16 06:30 Carbon Dioxide 25 mmol/L (22-30) 10/27/16 06:30 Anion Gap 18 mmol/L 10/27/16 06:30 BUN 40 mg/dL (7-17) H 10/27/16 06:30 Creatinine 1.5 mg/dL (0.7-1.2) H 10/27/16 06:30 Estimated GFR 45 ml/min 10/27/16 06:30 BUN/Creatinine Ratio 26.66 % 10/27/16 06:30 Glucose 135 mg/dL (65-100) H 10/27/16 06:30 POC Glucose 107 (70-105) H 10/27/16 05:03 Osmolality 351 Mosm/kg 09/16/16 11:47 Lactic Acid 4.50 mmol/L (0.7-2.0) H* 09/28/16 07:25 Calcium 8.3 mg/dL (8.4-10.2) L 10/27/16 06:30 Phosphorus 1.30 mg/dL (2.5-4.5) L D 10/27/16 06:30 Magnesium 1.70 mg/dL (1.7-2.3) 10/27/16 06:30 Total Bilirubin 0.30 mg/dL (0.1-1.2) 10/17/16 04:24 Direct Bilirubin 0.3 mg/dL (0-0.2) H 10/10/16 05:00 Indirect Bilirubin 0.1 mg/dL 10/10/16 05:00 AST 39 units/L (5-40) 10/17/16 04:24 ALT 13 units/L (7-56) 10/17/16 04:24 Alkaline Phosphatase 138 units/L (35-129) H 10/17/16 04:24 Ammonia 27.0 umol/L (25-60) 09/07/16 08:37 Total Creatine Kinase 121 units/L (30-135) 09/29/16 20:12 CK-MB (CK-2) < 1.0 ng/mL (0.0-4.0) 09/29/16 20:12 CK-MB (CK-2) Rel Index 0.8 (0-4) 09/29/16 20:12 Troponin T 0.204 ng/mL (0.00-0.029) H* 09/29/16 20:12 C-Reactive Protein 15.80 mg/dL (0.00-1.30) H 10/11/16 04:15 Total Protein 6.2 g/dL (6.3-8.2) L 10/17/16 04:24 Albumin 1.5 g/dL (3.9-5) L 10/17/16 04:24 Albumin/Globulin Ratio 0.3 % 10/17/16 04:24 Triglycerides 137 mg/dL (2-149) 09/29/16 20:12 Cholesterol 31 mg/dL (50-199) L 09/29/16 20:12 LDL Cholesterol Direct 4 mg/dL (50-130) L 09/29/16 20:12 HDL Cholesterol 3 mg/dL (40-59) L 09/29/16 20:12 Cholesterol/HDL Ratio 10.33 % 09/29/16 20:12 Angiotensin Convert Enz See scanned report 09/08/16 11:48 Renin 0.99 ng/mL/h (0.25-5.82) 10/07/16 10:56 Aldosterone <1 ng/dL () 10/07/16 10:56 Aldosterone/Renin Dir see below 10/07/16 10:56 Serotonin Release Assay See scanned report 09/29/16 13:35 TSH 1.010 mlU/mL (0.270-4.200) 09/07/16 08:37 HCG, Qual Negative (Negative) 09/03/16 00:10 Urine Color [place] (Yellow) 10/07/16 18:30 Urine Turbidity Turbid (Clear) 10/07/16 18:30 Urine pH 7.0 (5.0-7.0) 10/07/16 18:30 Ur Specific [place] 1.012 (1.003-1.030) 10/07/16 18:30 Urine Protein 100 mg/dl mg/dL (Negative) 10/07/16 18:30 Urine Glucose (UA) Neg mg/dL (Negative) 10/07/16 18:30 Urine Ketones Neg mg/dL (Negative) 10/07/16 18:30 Urine Blood Lg (Negative) 10/07/16 18:30 Urine Nitrite Neg (Negative) 10/07/16 18:30 Urine Bilirubin Neg (Negative) 10/07/16 18:30 Urine Urobilinogen < 2.0 mg/dL (<2.0) 10/07/16 18:30 Ur Leukocyte Esterase Lg (Negative) 10/07/16 18:30 Urine WBC (Auto) > 182.0 /HPF (0.0-6.0) H 10/07/16 18:30 Urine RBC (Auto) > 182.0 /HPF (0.0-6.0) 10/07/16 18:30 U Epithel Cells (Auto) 1.0 /HPF (0-13.0) 10/07/16 18:30 Urine Bacteria (Auto) 3+ /HPF (Negative) 10/07/16 18:30 Urine WBC Clumps 2+ /HPF 09/07/16 02:47 Hyaline Casts 4 /LPF 09/07/16 02:47 Urine Mucus Few /HPF 10/07/16 18:30 Urine Yeast (Budding) 3+ /HPF 10/07/16 18:30 Urine Eosinophils None seen (None Seen) 09/07/16 16:00 Urine Total Volume 1350 09/21/16 12:00 Urine Creatinine 54.8 mg/dL (0.1-20.0) H 09/21/16 12:00 Height (in) 67.0 inches 09/21/16 12:00 Weight (lb) 92.0 lbs 09/21/16 12:00 Creatinine Clearance 15 09/21/16 12:00 Urine Sodium 36 mEq/L 09/16/16 19:19 Urine Total Protein 16 mg/dL (5-11.8) H 09/16/16 19:19 Vancomycin Trough 2.3 ug/mL (5.0-20.0) L 09/21/16 13:00 Random Vancomycin 17.0 ug/mL (0-40.0) 10/20/16 06:00 Urine Opiates Screen Presumptive negative 09/03/16 15:11 Urine Methadone Screen Presumptive positive 09/03/16 15:11 Ur Barbiturates Screen Presumptive positive 09/03/16 15:11 Ur Phencyclidine Scrn Presumptive negative 09/03/16 15:11 Ur Amphetamines Screen Presumptive negative 09/03/16 15:11 U Benzodiazepines Scrn Presumptive negative 09/03/16 15:11 Urine Cocaine Screen Presumptive negative 09/03/16 15:11 U Marijuana (THC) Screen Presumptive positive 09/03/16 15:11 Drugs of Abuse Note Disclamer 09/03/16 15:11 Rheumatoid Factor 24 IU/ml (0-13) H 09/08/16 11:48 SAHIL Screen Negative (Negative) 09/07/16 09:20 Proteinase 3 (PR3) Ab <1.0 AI (<1.0) 09/07/16 09:20 Myeloperoxidase Ab <1.0 AI (<1.0) 09/07/16 09:20 Sjogren's Antibody <1.0 AI (<1.0) 09/08/16 15:35 Scl-70 Scleroderma Ab <1.0 AI (<1.0) 09/08/16 15:35 Centromere B Antibody <1.0 AI (<1.0) 09/08/16 12:02 Heparin-induced Plt Ab Negative (Negative) 09/29/16 13:35 UF Heparin High Dose 11 % Release 09/29/16 13:35 SUDHIR UFH Low Dose 0.1 6 % Release 09/29/16 13:35 SUDHIR UFH Low Dose 0.5 8 % Release 09/29/16 13:35 Cardiolipid IgG Ab <14 GPL (<=14) 09/12/16 09:59 Cardiolipid IgA Ab <11 APL (<=11) 09/12/16 09:59 Cardiolipid IgM Ab <12 MPL (<=12) 09/12/16 09:59 Complement C3 148 mg/dL (90-180) 09/07/16 09:20 Complement C4 58 mg/dL (16-47) H 09/07/16 09:20 RPR Nonreactive (Nonreactive) 09/08/16 11:48 Hepatitis A IgM Ab Non-reactive (NonReactive) 09/24/16 14:40 Hep Bs Antigen Non-reactive (Negative) 09/24/16 14:40 Hep B Core IgM Ab Non-reactive (NonReactive) 09/24/16 14:40 Hepatitis C Antibody Non-reactive (NonReactive) 09/24/16 14:40 HIV 1&2 Antibody Rapid Non react (Non React) 09/08/16 11:48 HIV P24 Antigen Non react (Non React) 09/08/16 11:48 Miscellaneous Test Flexitest 1 H 10/20/16 16:00 Blood Type A POSITIVE 10/24/16 Unknown Antibody Screen Negative 10/24/16 Unknown DELORIS Antibody Screen Negative 09/25/16 10:30 Crossmatch See Detail 10/24/16 Unknown
[2016-10-27] MEDS: HEPARIN 10,000 UNITS/10 ML ONE ×2 (12:34→12:35)
--- NOTE | 2016-10-27 13:38 | Operative Report ---
Operative Report Operative Report: Procedure: 1. Left internal jugular tunneled dialysis catheter placement 2. Ultrasound guided puncture of the LIJ vein. Date: 10/27/2016 Physician: Anisha Sy MD Indication: 46 year old female with end stage renal disease, in need of dialysis. Technique: The patient was placed in the supine position and prepped and draped in the usual sterile fashion. A timeout was performed. Local anesthetic was administered. Under direct ultrasound guidance, the L:IJ vein was accessed with a 21-gauge needle. This was exchanged over a manual wire for a 4 Mongolian exchanged dilator. Via the exchange dilator, an 035 wire was advanced into the IVC. Attention was then turned to the left chest wall. An appropriate catheter exit site was chosen, and local anesthetic was again administered. A skin kemi was made, and the catheter was tunneled under the skin from the exit site to the venotomy. After serial tissue dilation, the dialysis catheter was advanced through a peel- away sheath, until the tip was in the right atrium. Vacuum aspiration and flushing was performed. Each lumen was instilled with heparin. The catheter was secured to the skin with 2-0 Ethilon suture. The venotomy site was closed with Dermabond. Sterile dressings were placed, and the patient was transported from the procedure area in stable condition. Findings: 1. Ultrasound demonstrates a patent and compressible LIJ vein. 2. There is successful placement of a 27cm tunneled dialysis catheter via the LIJ vein. 3. Each lumen flushes and aspirates briskly. 4. Positioning of the catheter tip within the right atrium is confirmed by fluoroscopy. The catheter is ready for use.
--- NOTE | 2016-10-27 16:40 | Progress Note ---
Assessment and Plan - Patient Problems (1) Dislodged gastrostomy tube Current Visit: Yes Status: Acute Plan to address problem: continue wound packing with iodoform gauze. Continue supportive care. Await tr to LTAC Subjective Date of service: 10/27/16 Patient Reports: Positive: fever, other (no acute events. ) Objective Vital Signs - 12hr 10/27/16 10/27/16 10/27/16 05:01 05:30 06:00 Temperature Pulse Rate 115 H 116 H Respiratory 27 H 27 H Rate Respiratory 28 H Rate [ Generalized] Blood Pressure 186/110 210/135 213/119 O2 Sat by Pulse 99 Oximetry 10/27/16 10/27/16 10/27/16 06:30 07:00 07:30 Temperature Pulse Rate 120 H 121 H 123 H Respiratory 29 H 26 H 25 H Rate Respiratory Rate [ Generalized] Blood Pressure 204/107 194/106 176/106 O2 Sat by Pulse 100 100 100 Oximetry 10/27/16 10/27/16 10/27/16 07:33 07:39 08:36 Temperature 98.9 F Pulse Rate 120 H Respiratory Rate Respiratory Rate [ Generalized] Blood Pressure O2 Sat by Pulse 100 Oximetry 10/27/16 10/27/16 10/27/16 09:30 12:00 13:48 Temperature 98.6 F Pulse Rate 123 H 118 H Respiratory Rate Respiratory Rate [ Generalized] Blood Pressure 185/106 205/122 O2 Sat by Pulse Oximetry 10/27/16 10/27/16 13:52 16:00 Temperature 98.1 F Pulse Rate 116 H Respiratory Rate Respiratory Rate [ Generalized] Blood Pressure 200/117 O2 Sat by Pulse Oximetry - General physical appearance no distress, chronically ill - Respiratory normal respiratory effort - Abdomen soft, not tender, not distended, other (drain and trocar site still with purulent material. ) - Neurologic other (eyes open to voice.) - Labs 10/27/16 06:30 10/27/16 06:30 Diabetes panel 10/27/16 Range/Units 06:30 Sodium 137 (137-145) mmol/L Potassium 4.1 (3.6-5.0) mmol/L Chloride 98.4 (98-107) mmol/L Carbon Dioxide 25 (22-30) mmol/L BUN 40 H (7-17) mg/dL Creatinine 1.5 H (0.7-1.2) mg/dL Glucose 135 H (65-100) mg/dL Calcium 8.3 L (8.4-10.2) mg/dL Calcium panel 10/27/16 Range/Units 06:30 Calcium 8.3 L (8.4-10.2) mg/dL Phosphorus 1.30 L D (2.5-4.5) mg/dL Pituitary panel 10/27/16 Range/Units 06:30 Sodium 137 (137-145) mmol/L Potassium 4.1 (3.6-5.0) mmol/L Chloride 98.4 (98-107) mmol/L Carbon Dioxide 25 (22-30) mmol/L BUN 40 H (7-17) mg/dL Creatinine 1.5 H (0.7-1.2) mg/dL Glucose 135 H (65-100) mg/dL Calcium 8.3 L (8.4-10.2) mg/dL Adrenal panel 10/27/16 Range/Units 06:30 Sodium 137 (137-145) mmol/L Potassium 4.1 (3.6-5.0) mmol/L Chloride 98.4 (98-107) mmol/L Carbon Dioxide 25 (22-30) mmol/L BUN 40 H (7-17) mg/dL Creatinine 1.5 H (0.7-1.2) mg/dL Glucose 135 H (65-100) mg/dL Calcium 8.3 L (8.4-10.2) mg/dL
[2016-10-27] MEDS: DIFLUCAN 200 MG/100 ML BAG IV SCH (18:23)
[2016-10-27] MEDS ORDERED: TPN ADULT 2,016 ML IV SCH (20:00)
[2016-10-28] MEDS: HumuLIN R SUB-Q SCH ×4 (00:47→17:38)
[2016-10-28] MEDS: APRESOLINE IV PRN ×5 (00:52→22:54)
[2016-10-28] MEDS: LOPRESSOR IV SCH ×6 (02:08→21:31)
[2016-10-28] MEDS: ZOSYN/NS 2.25 GM/50ML 2.25 GM/50 ML BAG IV SCH ×3 (06:09→21:32)
[2016-10-28 07:13] LABS: Basophils # (Auto) 0.1 K/mm3 (0.0-0.1); Basophils % (Auto) 0.6 % (0.0-1.8); Eosinophils # (Auto) 0.1 K/mm3 (0.0-0.4); Eosinophils % (Auto) 0.9 % (0.0-4.3); Hematocrit 26.9 % (30.3-42.9); Lymphocytes # (Auto) 1.2 K/mm3 (1.2-5.4); Lymphocytes % (Auto) 8.2 % (13.4-35.0); Mean Corpuscular HGB Conc 33 % (30-34); Mean Corpuscular Hemoglobin 29 pg (28-32); Mean Corpuscular Volume 88 fl (79-97); Monocytes # (Auto) 1.2 K/mm3 (0.0-0.8); Monocytes % (Auto) 8.4 % (0.0-7.3); Red Blood Count 3.05 M/mm3 (3.65-5.03); Red Cell Distribution Width 16.8 % (13.2-15.2)
[2016-10-28 07:29] LABS: BUN/Creatinine Ratio 31.57; Calcium 8.5 mg/dL (8.4-10.2)
[2016-10-28 07:34] LABS: Platelet Count 218 K/mm3 (140-440)
[2016-10-28] MEDS: PROTONIX IV SCH (09:16)
--- NOTE | 2016-10-28 09:56 | Progress Note ---
Assessment and Plan Assessment: 1) Recurrent Sepsis: fever restarted on 10/24 resolved- likely abdominal wall abscess at surgical site-better -S/p multiple episodes of sepsis - initially due to presumed aspiration pneumonia, then septic episode on 09/23 from Candidemia. Then from - peritonitis from gastric perforation +/- UTI. Current septic episode from surgical site infection. -CRP 19 --> 22 -Procalcitonin=24 --> 16 --> 4.3 -repeat CT abdomen 10/25 no leak no abscess. +small brit pleural effusion, increased air bronchograms R>L, track to old PEG. Persistent wall thickening sigmoid colon. -repeat blood cx - neg -Wound cx from surgical site infection + MDR Pseudomonas and Silvia albicans 2) Peritonitis: from gastric perforation from dislodged PEG with significant ascites -S/P exlap, repair of gastric perforation with wedge gastrectomy, abdominal washout, drain placement on 10/05. 3) Candidemia: -Blood cultures positive for Silvia albicans on 09/23 -Blood cultures positive on 09/25 -Blood cutlures negative on 09/30 -PICC line changed on 10/03 -Source ? gastric perf (PEG placed on 09/20) +/- TPN +/- central lines -TTE 10/07 no vegetations -PICC exchanged on 10/03 -fully treated with micafungin for 14 days last day 10/13 4) CA-UTI s/p gutierrez exchanged 5) Diarrhea - ? etiology ? antibiotic-induced, not better 6) Initial presumed aspiration pneumonia 7) Presumed UTI: urine cx 09/23 multiple species 8) Respiratory failure s/p trach 9) Recent CVA-left MCA CVA 10) Uncontrolled HTN 11) Acute on CKD 12) Extensive back skin peeling ? burn from gastric secretions. Doubt allergic reaction 13) Severe anemia; ? from GI bleed Plan: -Ok to place new PEG at a different site -Please discuss with case filler to start D/C planning -continue zosyn in view of MDR Pseudomonas only sens to zosyn day 8 of 14 -continue fluconazole day 9 of 14 -contact isolation in view of MDR Pseudomonas -discussed with ICU staff, Dr Kennedy and Dr Matias I will rounding this weekend Thank you Dr Matias for your consultation, will follow up with you. Pauline Carias MD Infectious Diseases Specialist [facility] M [phone] O [phone] Subjective Date of service: 10/28/16 Principal diagnosis: Acute resp failure on MVS; S/P Acute CVA; Acute Encephalopathy; JUANITA Interval history: Fever resolved, alert this am open eyes spontaneously, not following commands, tachycardic on the monitor, still on the vent via trach. Microbiology: Blood cultures: 09/13 neg 8/ Silvia albicans 09/25 Silvia 09/29 neg 10/07 NGTD Urine cultures: 09/10 neg 09/13 neg 8 10-100K mixed species 10/07 pending Respiratory cultures: 09/07 neg 09/13 neg 09/23 neg Wound cultures: 10/17 abd wall wound purulence + Pseudomonas MDR Stool cultures: Current Antimicrobials: fluconazole 10/19 zosyn 10/21 Previous Antimicrobials: Zosyn 10/07 Vancomycin PO 10/01 Metronidazole 09/25 Micafungin 09/27-10/13 Meropenem 10/10 Vanco 10/17 Objective - Exam Narrative Exam: General appearance: alert, non verbal, on the vent via trach no following commands Eyes: anicteric sclera, moist conjunctivae; PERRLA HENT: Atraumatic; oropharynx limited; Normal external ears. +NGT with greenish secretion Neck: +trach in place; supple, no thyromegaly or lymphadenopathy Lungs: brit loud rhonchi CV: tachycardic Abdomen: Soft, non-tender, +drain with purulent drainage, + diarrhea via rectal tube leaking. +old PEG site no drainage. Right sided Surgical site packed No drainage today Extremities: +peripheral edema no extremity lymphadenopathy Skin: sacral area wounds superficial no purulence Psych: somnolent . Neuro: somnolent non verbal on the vent. Lines: left arm PICC placed on 10/03 - Constitutional Vitals: Vital Signs Temp Pulse Resp BP Pulse Ox 99 F 118 H 32 H 177/115 99 10/28/16 08:00 10/28/16 09:15 10/28/16 09:00 10/28/16 09:15 10/28/16 08:44 Temperature -Last 24 Hours Temperature 99 F Temperature 98.7 F Temperature 98.5 F Temperature 98.3 F Temperature 98.1 F Temperature 98.6 F - Labs CBC & Chem 7: 09/08/17 06:45 10/28/16 06:45 Labs: Abnormal lab results 10/27/16 10/27/16 10/27/16 Range/Units 13:27 18:07 23:40 WBC (4.5-11.0) K/mm3 RBC (3.65-5.03) M/mm3 Hgb (10.1-14.3) gm/dl Hct (30.3-42.9) % RDW (13.2-15.2) % Lymph % (Auto) (13.4-35.0) % Sebastian % (Auto) (0.0-7.3) % Sebastian # (0.0-0.8) K/mm3 Seg Neutrophils % (40.0-70.0) % Seg Neutrophils # (1.8-7.7) K/mm3 BUN (7-17) mg/dL Creatinine (0.7-1.2) mg/dL Glucose (65-100) mg/dL POC Glucose 117 H 121 H 118 H (70-105) 10/28/16 10/28/16 10/28/16 Range/Units 05:48 06:45 06:45 WBC 14.7 H (4.5-11.0) K/mm3 RBC 3.05 L (3.65-5.03) M/mm3 Hgb 9.0 L (10.1-14.3) gm/dl Hct 26.9 L (30.3-42.9) % RDW 16.8 H (13.2-15.2) % Lymph % (Auto) 8.2 L (13.4-35.0) % Sebastian % (Auto) 8.4 H (0.0-7.3) % Sebastian # 1.2 H (0.0-0.8) K/mm3 Seg Neutrophils % 81.9 H (40.0-70.0) % Seg Neutrophils # 12.1 H (1.8-7.7) K/mm3 BUN 60 H (7-17) mg/dL Creatinine 1.9 H (0.7-1.2) mg/dL Glucose 120 H (65-100) mg/dL POC Glucose 114 H (70-105)
[2016-10-28] MEDS ORDERED: LASIX IV ONE ×2 (10:28→10:45)
--- NOTE | 2016-10-28 10:58 | Progress Note ---
Assessment and Plan Assessment and plan: --Severe Sepsis with septic shock, recurrent. Patient still with fevers. Patient with UTI, candidemia and peritonitis due to gastric perforation and dislodged PEG Continue antibiotics per ID. patient with no fevers for the past 48 hours. --Accelerated hypertension. Add clonidine patch. --Peritonitis. Repeat CT scan of the abdomen reveals no abscess but there is persistent wall thickening involving the sigmoid colon and several loops of small bowel projecting into the pelvis. The parents suggests enteritis and colitis. --Acute hypoxic respiratory failure, status post tracheostomy, on vent more than 96hrs Pulmonary following --Acute massive CVA with mass effect; continue antiplatelets and statins --Oliguric acute kidney injury. Etiology secondary to ATN on CKD. Baseline creatinine is approximately 1.7. --Paroxysmal atrial fibrillation with rapid ventricular rate, failed cardioversion Continue current medications, Not a candidate for anticoagulation secondary to anemia thrombocytopenia and massive CVA --Anemia; probably secondary to GI bleeding Patient received multiple units of PRBC in the past, H&H has remained stable. re-consult GI if needed If patient has significant vaginal bleeding Consult DROPHAMMER OPERATOR as needed -Toxic metabolic encephalopathy; supportive care --Diabetes mellitus type 2, Insulin/SSI --Severe protein caloric malnutrition, nutrition supplements to proceeding --s/p Thrombocytopenia. Now resolved --DVT prophylaxis, SCDs, no pharmacological agent given anemia , thrombocytopenia, massive stroke --Full code status, very poor prognosis Had family meetings 10/10/16, 10/14/16 plan of care poor prognosis was discussed per Dr. Clary Ronquillo. Very poor prognosis. Patient needs LTAC placement. History Interval history: No new issues overnight. Patient afebrile past 24 hours. Hospitalist Physical - Constitutional Vitals: Temp Pulse Resp BP Pulse Ox 99 F 118 H 32 H 177/115 99 10/28/16 08:00 10/28/16 09:15 10/28/16 09:00 10/28/16 09:15 10/28/16 08:44 General appearance: Present: no acute distress, obese, other (on vent, non- responsive) - EENT Eyes: Present: PERRL, EOM intact ENT: hearing intact, clear oral mucosa, dentition normal - Neck Neck: Present: supple, normal ROM - Respiratory Respiratory effort: normal Respiratory: bilateral: CTA - Cardiovascular Rhythm: regular Heart Sounds: Present: S1 & S2. Absent: gallop, rub - Extremities Extremities: no ischemia, No edema, Full ROM - Abdominal General gastrointestinal: soft, non-tender, non-distended, normal bowel sounds - Integumentary Integumentary: Present: clear, warm, dry - Neurologic Neurologic: CNII-XII intact, moves all extremities Results - Labs CBC & Chem 7: 10/28/16 06:45 10/28/16 06:45 Labs: Laboratory Last Values WBC 14.7 K/mm3 (4.5-11.0) H 10/28/16 06:45 RBC 3.05 M/mm3 (3.65-5.03) L 10/28/16 06:45 Hgb 9.0 gm/dl (10.1-14.3) L 10/28/16 06:45 Hct 26.9 % (30.3-42.9) L 10/28/16 06:45 MCV 88 fl (79-97) 10/28/16 06:45 MCH 29 pg (28-32) 10/28/16 06:45 MCHC 33 % (30-34) 10/28/16 06:45 RDW 16.8 % (13.2-15.2) H 10/28/16 06:45 Plt Count 218 K/mm3 (140-440) 10/28/16 06:45 Lymph % (Auto) 8.2 % (13.4-35.0) L 10/28/16 06:45 [place] % (Auto) 8.4 % (0.0-7.3) H 10/28/16 06:45 Eos % (Auto) 0.9 % (0.0-4.3) 10/28/16 06:45 Baso % (Auto) 0.6 % (0.0-1.8) 10/28/16 06:45 Lymph # 1.2 K/mm3 (1.2-5.4) 10/28/16 06:45 [place] # 1.2 K/mm3 (0.0-0.8) H 10/28/16 06:45 Eos # 0.1 K/mm3 (0.0-0.4) 10/28/16 06:45 Baso # 0.1 K/mm3 (0.0-0.1) 10/28/16 06:45 Add Manual Diff Complete 10/27/16 06:30 Total Counted 100 10/27/16 06:30 Seg Neutrophils % 81.9 % (40.0-70.0) H 10/28/16 06:45 Seg Neuts % (Manual) 78.0 % (40.0-70.0) H 10/27/16 06:30 Band Neutrophils % 0 % 10/27/16 06:30 Lymphocytes % (Manual) 14.0 % (13.4-35.0) 10/27/16 06:30 Reactive Lymphs % (Man) 0 % 10/27/16 06:30 Monocytes % (Manual) 7.0 % (0.0-7.3) 10/27/16 06:30 Eosinophils % (Manual) 0 % (0.0-4.3) 10/27/16 06:30 Basophils % (Manual) 1.0 % (0.0-1.8) 10/27/16 06:30 Metamyelocytes % 0 % 10/27/16 06:30 Myelocytes % 0 % 10/27/16 06:30 Promyelocytes % 0 % 10/27/16 06:30 Blast Cells % 0 % 10/27/16 06:30 Nucleated RBC % 2.0 % (0.0-0.9) H 10/27/16 06:30 Seg Neutrophils # 12.1 K/mm3 (1.8-7.7) H 10/28/16 06:45 Seg Neutrophils # Man 10.8 K/mm3 (1.8-7.7) H 10/27/16 06:30 Band Neutrophils # 0.0 K/mm3 10/27/16 06:30 Lymphocytes # (Manual) 1.9 K/mm3 (1.2-5.4) 10/27/16 06:30 Abs React Lymphs (Man) 0.0 K/mm3 10/27/16 06:30 Monocytes # (Manual) 1.0 K/mm3 (0.0-0.8) H 10/27/16 06:30 Eosinophils # (Manual) 0.0 K/mm3 (0.0-0.4) 10/27/16 06:30 Basophils # (Manual) 0.1 K/mm3 (0.0-0.1) 10/27/16 06:30 Metamyelocytes # 0.0 K/mm3 10/27/16 06:30 Myelocytes # 0.0 K/mm3 10/27/16 06:30 Promyelocytes # 0.0 K/mm3 10/27/16 06:30 Blast Cells # 0.0 K/mm3 10/27/16 06:30 Pathologist Review 09/13/16 04:00 WBC Morphology Not Reportable 10/27/16 06:30 Hypersegmented Neuts Not Reportable 10/27/16 06:30 Hyposegmented Neuts Not Reportable 10/27/16 06:30 Hypogranular Neuts Not Reportable 10/27/16 06:30 Smudge Cells Not Reportable 10/27/16 06:30 Toxic Granulation Not Reportable 10/27/16 06:30 Toxic Vacuolation Not Reportable 10/27/16 06:30 Dohle Bodies Not Reportable 10/27/16 06:30 Pelger-Huet Anomaly Not Reportable 10/27/16 06:30 Jasmina Rods Not Reportable 10/27/16 06:30 Platelet Estimate Cons 10/27/16 06:30 Clumped Platelets Not Reportable 10/27/16 06:30 Plt Clumps, EDTA Not Reportable 10/27/16 06:30 Large Platelets Few 10/27/16 06:30 Giant Platelets Not Reportable 10/27/16 06:30 Platelet Satelliting Not Reportable 10/27/16 06:30 Plt Morphology Comment Not Reportable 10/27/16 06:30 RBC Morphology Not Reportable 10/27/16 06:30 Dimorphic RBCs Not Reportable 10/27/16 06:30 Polychromasia Not Reportable 10/27/16 06:30 Hypochromasia Not Reportable 10/27/16 06:30 Poikilocytosis Not Reportable 10/27/16 06:30 Anisocytosis 1+ 10/27/16 06:30 Microcytosis Not Reportable 10/27/16 06:30 Macrocytosis Not Reportable 10/27/16 06:30 Spherocytes Not Reportable 10/27/16 06:30 Pappenheimer Bodies Not Reportable 10/27/16 06:30 Sickle Cells Not Reportable 10/27/16 06:30 Target Cells Not Reportable 10/27/16 06:30 Tear Drop Cells Not Reportable 10/27/16 06:30 Ovalocytes Not Reportable 10/27/16 06:30 Stomatocytes Few 10/06/16 03:50 Helmet Cells Not Reportable 10/27/16 06:30 [place] Bodies Not Reportable 10/27/16 06:30 [place] Rings Not Reportable 10/27/16 06:30 Chuck Cells Not Reportable 10/27/16 06:30 Bite Cells Not Reportable 10/27/16 06:30 Crenated Cell Not Reportable 10/27/16 06:30 Elliptocytes Not Reportable 10/27/16 06:30 Acanthocytes (Spur) Not Reportable 10/27/16 06:30 Rouleaux Not Reportable 10/27/16 06:30 Hemoglobin C Crystals Not Reportable 10/27/16 06:30 Schistocytes Not Reportable 10/27/16 06:30 Malaria parasites Not Reportable 10/27/16 06:30 ESR > 140.0 mm/Hr (0-20) 09/08/16 11:48 Jun Bodies Not Reportable 10/27/16 06:30 Hem Pathologist Commnt No 10/27/16 06:30 PT 19.0 Sec. (12.2-14.9) H 10/09/16 03:45 INR 1.51 (0.87-1.13) H 10/09/16 03:45 APTT 33.0 Sec. (24.2-36.6) 10/09/16 03:45 Thrombin Time 16.8 Sec. (15.1-19.6) 09/03/16 00:10 Fibrinogen 750 mg/dl (211-480) H 09/08/16 11:48 Lupus Anticoagulant see below 09/12/16 09:59 LA PTT Baseline See scanned report 09/12/16 09:59 dRVVT Confirm Interp Positive (Negative) H 09/12/16 09:59 dRVVT Screen 50:50 See scanned report 09/12/16 09:59 dRVVT Mix Interpret See scanned report 09/12/16 09:59 Protein C Antigen 122 % (70-140) 09/08/16 15:35 Free Protein S 97 % normal (50-147) 09/08/16 15:35 Total Protein S 109 % (70-140) 09/08/16 15:35 Antithrombin III Ag 100 % (80-120) 09/08/16 15:35 Heparin Anti-Xa, Unfract Negative (Negative) 09/29/16 13:35 Factor V Activity 182 % (65-150) H 09/08/16 15:35 POC ABG pH 7.561 (7.35-7.45) H 10/16/16 20:48 POC ABG pCO2 24.4 (35-45) L 10/16/16 20:48 POC ABG pO2 77 (80-105) L 10/16/16 20:48 POC ABG HCO3 21.9 10/16/16 20:48 POC ABG Total CO2 23 10/16/16 20:48 POC ABG O2 Sat 97 10/16/16 20:48 POC ABG Base Excess 0 10/16/16 20:48 FiO2 25 % 10/16/16 20:48 Sodium 139 mmol/L (137-145) 10/28/16 06:45 Potassium 4.7 mmol/L (3.6-5.0) 10/28/16 06:45 Chloride 99.2 mmol/L (98-107) 10/28/16 06:45 Carbon Dioxide 22 mmol/L (22-30) 10/28/16 06:45 Anion Gap 23 mmol/L 10/28/16 06:45 BUN 60 mg/dL (7-17) H 10/28/16 06:45 Creatinine 1.9 mg/dL (0.7-1.2) H 10/28/16 06:45 Estimated GFR 35 ml/min 10/28/16 06:45 BUN/Creatinine Ratio 31.57 % 10/28/16 06:45 Glucose 120 mg/dL (65-100) H 10/28/16 06:45 POC Glucose 114 (70-105) H 10/28/16 05:48 Osmolality 351 Mosm/kg 09/16/16 11:47 Lactic Acid 4.50 mmol/L (0.7-2.0) H* 09/28/16 07:25 Calcium 8.5 mg/dL (8.4-10.2) 10/28/16 06:45 Phosphorus 3.90 mg/dL (2.5-4.5) D 10/28/16 07:00 Magnesium 1.80 mg/dL (1.7-2.3) 10/28/16 07:00 Total Bilirubin 0.30 mg/dL (0.1-1.2) 10/17/16 04:24 Direct Bilirubin 0.3 mg/dL (0-0.2) H 10/10/16 05:00 Indirect Bilirubin 0.1 mg/dL 10/10/16 05:00 AST 39 units/L (5-40) 10/17/16 04:24 ALT 13 units/L (7-56) 10/17/16 04:24 Alkaline Phosphatase 138 units/L (35-129) H 10/17/16 04:24 Ammonia 27.0 umol/L (25-60) 09/07/16 08:37 Total Creatine Kinase 121 units/L (30-135) 09/29/16 20:12 CK-MB (CK-2) < 1.0 ng/mL (0.0-4.0) 09/29/16 20:12 CK-MB (CK-2) Rel Index 0.8 (0-4) 09/29/16 20:12 Troponin T 0.204 ng/mL (0.00-0.029) H* 09/29/16 20:12 C-Reactive Protein 15.80 mg/dL (0.00-1.30) H 10/11/16 04:15 Total Protein 6.2 g/dL (6.3-8.2) L 10/17/16 04:24 Albumin 1.5 g/dL (3.9-5) L 10/17/16 04:24 Albumin/Globulin Ratio 0.3 % 10/17/16 04:24 Triglycerides 137 mg/dL (2-149) 09/29/16 20:12 Cholesterol 31 mg/dL (50-199) L 09/29/16 20:12 LDL Cholesterol Direct 4 mg/dL (50-130) L 09/29/16 20:12 HDL Cholesterol 3 mg/dL (40-59) L 09/29/16 20:12 Cholesterol/HDL Ratio 10.33 % 09/29/16 20:12 Angiotensin Convert Enz See scanned report 09/08/16 11:48 Renin 0.99 ng/mL/h (0.25-5.82) 10/07/16 10:56 Aldosterone <1 ng/dL () 10/07/16 10:56 Aldosterone/Renin Dir see below 08/18/17 10:56 Serotonin Release Assay See scanned report 09/29/16 13:35 TSH 1.010 mlU/mL (0.270-4.200) 09/07/16 08:37 HCG, Qual Negative (Negative) 09/03/16 00:10 Urine Color [place] (Yellow) 10/07/16 18:30 Urine Turbidity Turbid (Clear) 10/07/16 18:30 Urine pH 7.0 (5.0-7.0) 10/07/16 18:30 Ur Specific Pearl 1.012 (1.003-1.030) 10/07/16 18:30 Urine Protein 100 mg/dl mg/dL (Negative) 10/07/16 18:30 Urine Glucose (UA) Neg mg/dL (Negative) 10/07/16 18:30 Urine Ketones Neg mg/dL (Negative) 10/07/16 18:30 Urine Blood Lg (Negative) 10/07/16 18:30 Urine Nitrite Neg (Negative) 10/07/16 18:30 Urine Bilirubin Neg (Negative) 10/07/16 18:30 Urine Urobilinogen < 2.0 mg/dL (<2.0) 10/07/16 18:30 Ur Leukocyte Esterase Lg (Negative) 10/07/16 18:30 Urine WBC (Auto) > 182.0 /HPF (0.0-6.0) H 10/07/16 18:30 Urine RBC (Auto) > 182.0 /HPF (0.0-6.0) 10/07/16 18:30 U Epithel Cells (Auto) 1.0 /HPF (0-13.0) 10/07/16 18:30 Urine Bacteria (Auto) 3+ /HPF (Negative) 10/07/16 18:30 Urine WBC Clumps 2+ /HPF 09/07/16 02:47 Hyaline Casts 4 /LPF 09/07/16 02:47 Urine Mucus Few /HPF 10/07/16 18:30 Urine Yeast (Budding) 3+ /HPF 10/07/16 18:30 Urine Eosinophils None seen (None Seen) 09/07/16 16:00 Urine Total Volume 1350 09/21/16 12:00 Urine Creatinine 54.8 mg/dL (0.1-20.0) H 09/21/16 12:00 Height (in) 67.0 inches 09/21/16 12:00 Weight (lb) 92.0 lbs 09/21/16 12:00 Creatinine Clearance 15 09/21/16 12:00 Urine Sodium 36 mEq/L 09/16/16 19:19 Urine Total Protein 16 mg/dL (5-11.8) H 09/16/16 19:19 Vancomycin Trough 2.3 ug/mL (5.0-20.0) L 09/21/16 13:00 Random Vancomycin 17.0 ug/mL (0-40.0) 10/20/16 06:00 Urine Opiates Screen Presumptive negative 09/03/16 15:11 Urine Methadone Screen Presumptive positive 09/03/16 15:11 Ur Barbiturates Screen Presumptive positive 09/03/16 15:11 Ur Phencyclidine Scrn Presumptive negative 09/03/16 15:11 Ur Amphetamines Screen Presumptive negative 09/03/16 15:11 U Benzodiazepines Scrn Presumptive negative 09/03/16 15:11 Urine Cocaine Screen Presumptive negative 09/03/16 15:11 U Marijuana (THC) Screen Presumptive positive 09/03/16 15:11 Drugs of Abuse Note Disclamer 09/03/16 15:11 Rheumatoid Factor 24 IU/ml (0-13) H 09/08/16 11:48 SHAIL Screen Negative (Negative) 09/07/16 09:20 Proteinase 3 (PR3) Ab <1.0 AI (<1.0) 09/07/16 09:20 Myeloperoxidase Ab <1.0 AI (<1.0) 09/07/16 09:20 Sjogren's Antibody <1.0 AI (<1.0) 09/08/16 15:35 Scl-70 Scleroderma Ab <1.0 AI (<1.0) 09/08/16 15:35 Centromere B Antibody <1.0 AI (<1.0) 09/08/16 12:02 Heparin-induced Plt Ab Negative (Negative) 09/29/16 13:35 UF Heparin High Dose 11 % Release 09/29/16 13:35 SUDHIR UFH Low Dose 0.1 6 % Release 09/29/16 13:35 SUDHIR UFH Low Dose 0.5 8 % Release 09/29/16 13:35 Cardiolipid IgG Ab <14 GPL (<=14) 09/12/16 09:59 Cardiolipid IgA Ab <11 APL (<=11) 09/12/16 09:59 Cardiolipid IgM Ab <12 MPL (<=12) 09/12/16 09:59 Complement C3 148 mg/dL (90-180) 09/07/16 09:20 Complement C4 58 mg/dL (16-47) H 09/07/16 09:20 RPR Nonreactive (Nonreactive) 09/08/16 11:48 Hepatitis A IgM Ab Non-reactive (NonReactive) 09/24/16 14:40 Hep Bs Antigen Non-reactive (Negative) 09/24/16 14:40 Hep B Core IgM Ab Non-reactive (NonReactive) 09/24/16 14:40 Hepatitis C Antibody Non-reactive (NonReactive) 09/24/16 14:40 HIV 1&2 Antibody Rapid Non react (Non React) 09/08/16 11:48 HIV P24 Antigen Non react (Non React) 09/08/16 11:48 Miscellaneous Test Flexitest 1 H 10/20/16 16:00 Blood Type A POSITIVE 10/24/16 Unknown Antibody Screen Negative 10/24/16 Unknown DELORIS Antibody Screen Negative 09/25/16 10:30 Crossmatch See Detail 10/24/16 Unknown
--- NOTE | 2016-10-28 11:32 | Progress Note ---
Assessment and Plan (1) Acute respiratory failure with hypoxia Current Visit: Yes Status: Acute Plan to address problem: - continue aspiration precautions - continue to wean oxygen for MAP > 94% - continue bronchodilators and pulmonary toilet - s/p tracheostomy - on T-piece and tolerating well now - will shoot for RTC T-piece and repeat ABG tonight (2) Acute CVA (cerebrovascular accident) Current Visit: Yes Status: Acute Plan to address problem: - out of tpA window (initially stopped due to uncontrolled HTN) - Left MCA teritory stroke with some midline shift on last CT - seen by neurology and prognosis for recovery of mental status guarded to poor - optimizing secondary prevention modalities now (BP, lipid anti-platelet therapy) - off systemic steroids now (started earlier for edema) - clinically about the same (3) Hypertensive emergency Current Visit: Yes Status: Acute Plan to address problem: - stopped all antihypertensives while septic prior - BP's running high today - on scheduled IV metoprolol with prn IV hydralazine - clonidine patch will be placed (0.1mg patch) (4) Obesity (BMI 35.0-39.9 without comorbidity) Current Visit: Yes Status: Chronic Plan to address problem: - nutrition consult placed for enteral formulation - on TPN now - following clinically (5) Type 2 diabetes mellitus Current Visit: Yes Status: Chronic Qualifiers: Diabetes mellitus complication status: D Diabetes mellitus complication detail: D Diabetic retinopathy severity: D Proliferative retinopathy type: P Diabetes mellitus macular edema: D 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 Laterality: L Chronic kidney disease stage: C Plan to address problem: - continue SSI - discontinued lantus re: hypoglycemia - target BG's <180 mg/dl (6) Leukocytosis (leucocytosis) Current Visit: Yes Status: Acute Qualifiers: Leukocytosis type: leukemoid reaction Qualified Code(s): D72.823 - Leukemoid reaction Plan to address problem: - completed cancidas and de-escalate per ID recs - leucocytosis persistent but now trending down - on zosyn and diflucan now - wound cultures growing pseudomonas and dann (7) Agitation Current Visit: Yes Status: Acute Plan to address problem: - prn sedation / analgesia - tapered off seroquel for now (8) Atrial fibrillation Current Visit: Yes Status: Acute Qualifiers: Atrial fibrillation type: A Plan to address problem: - failed cardioversion earlier - cardiology evaluation ongoing - back in A-fib - continue amiodarone drip (change to p.o. once tolerating enterally) - on IV metoprolol scheduled re: HTN & tachycardia (9) JUANITA (acute kidney injury) Current Visit: Yes Status: Acute Plan to address problem: - on Dialysis now - continue HD/UF per nephrology recommendations - s/p tunnelled vas-cath (10) Pyrexia of unknown origin Current Visit: Yes Status: Acute Plan to address problem: - dopplers negative for DVT - continue to treat with Anti-infectives (11) Severe sepsis Current Visit: Yes Status: Acute Plan to address problem: - resume vasopressors for MAP < 60mmHg not responsive to volume - all central vascular access has been discontinued after fungemia reported - care plan formulated with ID input - BC's from 09/27/16 growing in 1of 2 but still no ID yet - coomplete micafungin per ID recs and stop date - wound care nurse also managing back wounds - clinically stable and hemodynamically improved - bo to RLQ incision removed and wound drained and packed - on contact precautions for MDRO PSAR (12) Emesis Current Visit: Yes Status: Acute Qualifiers: Vomiting type: V Vomiting Intractability: V Nausea presence: N Plan to address problem: - s/p surgical repair of gastric perforation - continue TPN for now - follow surgery recommendations re: feeding and new PEG tube (13) Dysphagia, oropharyngeal Current Visit: Yes Status: Acute Plan to address problem: - discussed with surgeon and she will be best served with continued treatment with anti-infectives as well as time for the GI tract and her wounds to heal before replacing the PEG tube - will keep feeding with NGT for 1 month before re-evaluation based on clinical picture during ex-lap (14) Discharge planning issues Current Visit: Yes Status: Acute Plan to address problem: - she remains critically ill on life sustaining interventions including MVS and at risk for further acute deterioration including - plan is to see if patient can transfer to LTAC in interim and be brought back for PEG placement .....35' CCT ....long-term prognosis is guarded Subjective Date of service: 10/28/16 Principal diagnosis: Acute resp failure on MVS; S/P Acute CVA; Acute Encephalopathy; JUANITA Interval history: Seen and examined at bedside; 24 hour events reviewed; nursing and respiratory care staff consulted; no adverse overnight events reported to me; on t-piece now and tolerating well so far; AMS is persistent but she does open eyes still to name calling; no gross bleeding; no emesis or overt aspiration; care plan discussed at length with surgery and ID teams Objective Vital Signs - 12hr 10/28/16 10/28/16 10/28/16 00:00 00:08 00:30 Temperature 98.5 F Pulse Rate 115 H 119 H Pulse Rate [ 121 H From Monitor] Respiratory 23 22 Rate Blood Pressure 200/120 213/123 O2 Sat by Pulse 100 100 Oximetry O2 Sat by Pulse 100 Oximetry [ Assessment] 10/28/16 10/28/16 10/28/16 00:52 01:00 01:30 Temperature Pulse Rate 120 H 127 H 121 H Pulse Rate [ From Monitor] Respiratory 30 H 26 H Rate Blood Pressure 208/126 203/121 191/116 O2 Sat by Pulse 100 100 Oximetry O2 Sat by Pulse Oximetry [ Assessment] 10/28/16 10/28/16 10/28/16 02:00 02:08 02:30 Temperature Pulse Rate 127 H 118 H 116 H Pulse Rate [ From Monitor] Respiratory 28 H 26 H Rate Blood Pressure 183/123 183/123 189/126 O2 Sat by Pulse 100 100 Oximetry O2 Sat by Pulse Oximetry [ Assessment] 10/28/16 10/28/16 10/28/16 03:00 03:30 04:00 Temperature 98.7 F Pulse Rate 117 H 120 H 122 H Pulse Rate [ From Monitor] Respiratory 25 H 27 H 25 H Rate Blood Pressure 191/125 204/123 206/133 O2 Sat by Pulse 100 96 100 Oximetry O2 Sat by Pulse Oximetry [ Assessment] 10/28/16 10/28/16 10/28/16 04:16 04:30 05:00 Temperature Pulse Rate 124 H 119 H 126 H Pulse Rate [ From Monitor] Respiratory 24 28 H Rate Blood Pressure 206/133 205/127 224/141 O2 Sat by Pulse 100 100 100 Oximetry O2 Sat by Pulse Oximetry [ Assessment] 10/28/16 10/28/16 10/28/16 05:30 06:00 06:09 Temperature Pulse Rate 118 H 120 H 121 H Pulse Rate [ From Monitor] Respiratory 24 26 H Rate Blood Pressure 197/120 204/125 204/125 O2 Sat by Pulse 100 100 Oximetry O2 Sat by Pulse Oximetry [ Assessment] 10/28/16 10/28/16 10/28/16 06:30 07:00 07:30 Temperature Pulse Rate 109 H 115 H 123 H Pulse Rate [ From Monitor] Respiratory 25 H 29 H 30 H Rate Blood Pressure 207/123 215/127 226/140 O2 Sat by Pulse 99 Oximetry O2 Sat by Pulse Oximetry [ Assessment] 10/28/16 10/28/16 10/28/16 07:59 08:00 08:10 Temperature 99 F Pulse Rate 121 H 121 H Pulse Rate [ 120 H From Monitor] Respiratory 35 H 31 H Rate Blood Pressure 226/140 209/125 O2 Sat by Pulse Oximetry O2 Sat by Pulse Oximetry [ Assessment] 10/28/16 10/28/16 10/28/16 08:30 08:43 08:44 Temperature Pulse Rate 119 H Pulse Rate [ From Monitor] Respiratory 35 H Rate Blood Pressure 209/125 O2 Sat by Pulse 99 Oximetry O2 Sat by Pulse 99 Oximetry [ Assessment] 10/28/16 10/28/16 09:00 09:15 Temperature Pulse Rate 119 H 118 H Pulse Rate [ From Monitor] Respiratory 32 H Rate Blood Pressure 177/115 177/115 O2 Sat by Pulse Oximetry O2 Sat by Pulse Oximetry [ Assessment] Constitutional: no acute distress, other (eyes open; not tracking movements) Eyes: non-icteric, other (tracheostomy tube in midline of neck) ENT: oropharynx moist Neck: supple, no lymphadenopathy Effort: mildly labored Ascultation: Bilateral: diminished breath sounds (bases), rhonchi (scant) Cardiovascular: regular rate and rhythm Gastrointestinal: hypoactive bowel sounds, soft, non-tender, non-distended, other (RLQ wound dressed) Integumentary: other (erythema to skin of back with some healing areas; no obvious TEN's features) Extremities: no cyanosis, no edema, pulses normal, no ischemia or petechiae Neurologic: pupils equal and round, other (sedated) Psychiatric: other (unable to assess) CBC and BMP: 10/28/16 06:45 10/28/16 06:45 ABG, PT/INR, D-dimer: ABG POC ABG pH 7.561 (7.35-7.45) H 10/16/16 20:48 POC ABG pCO2 24.4 (35-45) L 10/16/16 20:48 POC ABG pO2 77 (80-105) L 10/16/16 20:48 POC ABG HCO3 21.9 10/16/16 20:48 POC ABG Total CO2 23 10/16/16 20:48 POC ABG O2 Sat 97 10/16/16 20:48 PT/INR, D-dimer PT 19.0 Sec. (12.2-14.9) H 10/09/16 03:45 INR 1.51 (0.87-1.13) H 10/09/16 03:45 Abnormal lab findings: Abnormal Labs 09/03/16 09/03/16 09/03/16 12:12 15:07 16:20 WBC RBC Hgb Hct MCV MCH MCHC RDW Plt Count Lymph % (Auto) [place] % (Auto) Lymph # [place] # Baso # Seg Neutrophils % Seg Neuts % (Manual) Lymphocytes % (Manual) Monocytes % (Manual) Eosinophils % (Manual) Basophils % (Manual) Nucleated RBC % Seg Neutrophils # Seg Neutrophils # Man Lymphocytes # (Manual) Monocytes # (Manual) Eosinophils # (Manual) PT INR Fibrinogen dRVVT Confirm Interp Factor V Activity POC ABG pH 7.452 H POC ABG pCO2 POC ABG pO2 Sodium Potassium Chloride Carbon Dioxide BUN Creatinine Glucose POC Glucose 178 H Lactic Acid Calcium Phosphorus 2.20 L Magnesium 1.60 L Direct Bilirubin ALT Alkaline Phosphatase Troponin T C-Reactive Protein Total Protein Albumin Triglycerides Cholesterol LDL Cholesterol Direct HDL Cholesterol Urine WBC (Auto) Urine Creatinine Urine Total Protein Vancomycin Trough Rheumatoid Factor Complement C4 Miscellaneous Test Crossmatch 09/03/16 09/03/16 09/03/16 17:57 17:58 23:50 WBC RBC Hgb Hct MCV MCH MCHC RDW Plt Count Lymph % (Auto) [place] % (Auto) Lymph # [place] # Baso # Seg Neutrophils % Seg Neuts % (Manual) Lymphocytes % (Manual) Monocytes % (Manual) Eosinophils % (Manual) Basophils % (Manual) Nucleated RBC % Seg Neutrophils # Seg Neutrophils # Man Lymphocytes # (Manual) Monocytes # (Manual) Eosinophils # (Manual) PT INR Fibrinogen dRVVT Confirm Interp Factor V Activity POC ABG pH POC ABG pCO2 POC ABG pO2 Sodium Potassium Chloride Carbon Dioxide BUN Creatinine Glucose POC Glucose 162 H 145 H Lactic Acid Calcium Phosphorus 2.30 L Magnesium Direct Bilirubin ALT Alkaline Phosphatase Troponin T C-Reactive Protein Total Protein Albumin Triglycerides Cholesterol LDL Cholesterol Direct HDL Cholesterol Urine WBC (Auto) Urine Creatinine Urine Total Protein Vancomycin Trough Rheumatoid Factor Complement C4 Miscellaneous Test Crossmatch 09/04/16 09/04/16 09/04/16 03:31 03:31 05:42 WBC RBC Hgb 9.7 L D Hct MCV 72 L MCH 23 L MCHC RDW 17.5 H Plt Count Lymph % (Auto) 11.1 L [place] % (Auto) Lymph # [place] # Baso # Seg Neutrophils % 84.3 H Seg Neuts % (Manual) Lymphocytes % (Manual) Monocytes % (Manual) Eosinophils % (Manual) Basophils % (Manual) Nucleated RBC % Seg Neutrophils # 8.9 H Seg Neutrophils # Man Lymphocytes # (Manual) Monocytes # (Manual) Eosinophils # (Manual) PT INR Fibrinogen dRVVT Confirm Interp Factor V Activity POC ABG pH POC ABG pCO2 POC ABG pO2 Sodium 135 L Potassium 2.9 L* Chloride 97.2 L Carbon Dioxide 19 L BUN Creatinine 1.7 H Glucose 170 H POC Glucose 152 H Lactic Acid Calcium Phosphorus Magnesium Direct Bilirubin ALT Alkaline Phosphatase Troponin T C-Reactive Protein Total Protein Albumin Triglycerides 160 H Cholesterol LDL Cholesterol Direct HDL Cholesterol 31 L Urine WBC (Auto) Urine Creatinine Urine Total Protein Vancomycin Trough Rheumatoid Factor Complement C4 Miscellaneous Test Crossmatch 09/04/16 09/04/16 09/04/16 11:34 17:46 23:29 WBC RBC Hgb Hct MCV MCH MCHC RDW Plt Count Lymph % (Auto) [place] % (Auto) Lymph # [place] # Baso # Seg Neutrophils % Seg Neuts % (Manual) Lymphocytes % (Manual) Monocytes % (Manual) Eosinophils % (Manual) Basophils % (Manual) Nucleated RBC % Seg Neutrophils # Seg Neutrophils # Man Lymphocytes # (Manual) Monocytes # (Manual) Eosinophils # (Manual) PT INR Fibrinogen dRVVT Confirm Interp Factor V Activity POC ABG pH POC ABG pCO2 POC ABG pO2 Sodium Potassium Chloride Carbon Dioxide BUN Creatinine Glucose POC Glucose 165 H 210 H 139 H Lactic Acid Calcium Phosphorus Magnesium Direct Bilirubin ALT Alkaline Phosphatase Troponin T C-Reactive Protein Total Protein Albumin Triglycerides Cholesterol LDL Cholesterol Direct HDL Cholesterol Urine WBC (Auto) Urine Creatinine Urine Total Protein Vancomycin Trough Rheumatoid Factor Complement C4 Miscellaneous Test Crossmatch 09/05/16 09/05/16 09/05/16 04:05 04:05 05:38 WBC RBC Hgb Hct MCV 76 L D MCH 23 L MCHC RDW 17.8 H Plt Count Lymph % (Auto) [place] % (Auto) Lymph # [place] # Baso # Seg Neutrophils % Seg Neuts % (Manual) Lymphocytes % (Manual) Monocytes % (Manual) Eosinophils % (Manual) Basophils % (Manual) Nucleated RBC % Seg Neutrophils # Seg Neutrophils # Man Lymphocytes # (Manual) Monocytes # (Manual) Eosinophils # (Manual) PT INR Fibrinogen dRVVT Confirm Interp Factor V Activity POC ABG pH POC ABG pCO2 POC ABG pO2 Sodium 134 L Potassium Chloride Carbon Dioxide 18 L BUN Creatinine 1.8 H Glucose 192 H POC Glucose 175 H Lactic Acid Calcium Phosphorus Magnesium Direct Bilirubin ALT Alkaline Phosphatase Troponin T C-Reactive Protein Total Protein Albumin Triglycerides Cholesterol LDL Cholesterol Direct HDL Cholesterol Urine WBC (Auto) Urine Creatinine Urine Total Protein Vancomycin Trough Rheumatoid Factor Complement C4 Miscellaneous Test Crossmatch 09/05/16 09/05/16 09/05/16 11:38 17:48 23:22 WBC RBC Hgb Hct MCV MCH MCHC RDW Plt Count Lymph % (Auto) [place] % (Auto) Lymph # [place] # Baso # Seg Neutrophils % Seg Neuts % (Manual) Lymphocytes % (Manual) Monocytes % (Manual) Eosinophils % (Manual) Basophils % (Manual) Nucleated RBC % Seg Neutrophils # Seg Neutrophils # Man Lymphocytes # (Manual) Monocytes # (Manual) Eosinophils # (Manual) PT INR Fibrinogen dRVVT Confirm Interp Factor V Activity POC ABG pH POC ABG pCO2 POC ABG pO2 Sodium Potassium Chloride Carbon Dioxide BUN Creatinine Glucose POC Glucose 164 H 186 H 195 H Lactic Acid Calcium Phosphorus Magnesium Direct Bilirubin ALT Alkaline Phosphatase Troponin T C-Reactive Protein Total Protein Albumin Triglycerides Cholesterol LDL Cholesterol Direct HDL Cholesterol Urine WBC (Auto) Urine Creatinine Urine Total Protein Vancomycin Trough Rheumatoid Factor Complement C4 Miscellaneous Test Crossmatch 09/06/16 09/06/16 09/06/16 04:12 05:59 07:32 WBC RBC Hgb Hct MCV MCH MCHC RDW Plt Count Lymph % (Auto) [place] % (Auto) Lymph # [place] # Baso # Seg Neutrophils % Seg Neuts % (Manual) Lymphocytes % (Manual) Monocytes % (Manual) Eosinophils % (Manual) Basophils % (Manual) Nucleated RBC % Seg Neutrophils # Seg Neutrophils # Man Lymphocytes # (Manual) Monocytes # (Manual) Eosinophils # (Manual) PT INR Fibrinogen dRVVT Confirm Interp Factor V Activity POC ABG pH 7.514 H POC ABG pCO2 29.1 L POC ABG pO2 72 L Sodium 133 L Potassium 3.4 L Chloride 94.9 L Carbon Dioxide 19 L BUN 30 H Creatinine 2.1 H Glucose 139 H POC Glucose 146 H Lactic Acid Calcium Phosphorus Magnesium Direct Bilirubin ALT Alkaline Phosphatase Troponin T C-Reactive Protein Total Protein Albumin Triglycerides Cholesterol LDL Cholesterol Direct HDL Cholesterol Urine WBC (Auto) Urine Creatinine Urine Total Protein Vancomycin Trough Rheumatoid Factor Complement C4 Miscellaneous Test Crossmatch 09/06/16 09/06/16 09/06/16 11:57 17:58 19:02 WBC RBC Hgb Hct MCV MCH MCHC RDW Plt Count Lymph % (Auto) [place] % (Auto) Lymph # [place] # Baso # Seg Neutrophils % Seg Neuts % (Manual) Lymphocytes % (Manual) Monocytes % (Manual) Eosinophils % (Manual) Basophils % (Manual) Nucleated RBC % Seg Neutrophils # Seg Neutrophils # Man Lymphocytes # (Manual) Monocytes # (Manual) Eosinophils # (Manual) PT INR Fibrinogen dRVVT Confirm Interp Factor V Activity POC ABG pH 7.465 H POC ABG pCO2 32.0 L POC ABG pO2 Sodium Potassium Chloride Carbon Dioxide BUN Creatinine Glucose POC Glucose 165 H 160 H Lactic Acid Calcium Phosphorus Magnesium Direct Bilirubin ALT Alkaline Phosphatase Troponin T C-Reactive Protein Total Protein Albumin Triglycerides Cholesterol LDL Cholesterol Direct HDL Cholesterol Urine WBC (Auto) Urine Creatinine Urine Total Protein Vancomycin Trough Rheumatoid Factor Complement C4 Miscellaneous Test Crossmatch 09/06/16 09/07/16 09/07/16 23:45 02:47 02:47 WBC RBC Hgb Hct MCV MCH MCHC RDW Plt Count Lymph % (Auto) [place] % (Auto) Lymph # [place] # Baso # Seg Neutrophils % Seg Neuts % (Manual) Lymphocytes % (Manual) Monocytes % (Manual) Eosinophils % (Manual) Basophils % (Manual) Nucleated RBC % Seg Neutrophils # Seg Neutrophils # Man Lymphocytes # (Manual) Monocytes # (Manual) Eosinophils # (Manual) PT INR Fibrinogen dRVVT Confirm Interp Factor V Activity POC ABG pH POC ABG pCO2 POC ABG pO2 Sodium Potassium Chloride Carbon Dioxide BUN Creatinine Glucose POC Glucose 204 H Lactic Acid Calcium Phosphorus Magnesium Direct Bilirubin ALT Alkaline Phosphatase Troponin T C-Reactive Protein Total Protein Albumin Triglycerides Cholesterol LDL Cholesterol Direct HDL Cholesterol Urine WBC (Auto) 68.0 H Urine Creatinine 106.1 H Urine Total Protein Vancomycin Trough Rheumatoid Factor Complement C4 Miscellaneous Test Crossmatch 09/07/16 09/07/16 09/07/16 04:50 06:19 06:39 WBC RBC Hgb Hct MCV MCH MCHC RDW Plt Count Lymph % (Auto) [place] % (Auto) Lymph # [place] # Baso # Seg Neutrophils % Seg Neuts % (Manual) Lymphocytes % (Manual) Monocytes % (Manual) Eosinophils % (Manual) Basophils % (Manual) Nucleated RBC % Seg Neutrophils # Seg Neutrophils # Man Lymphocytes # (Manual) Monocytes # (Manual) Eosinophils # (Manual) PT INR Fibrinogen dRVVT Confirm Interp Factor V Activity POC ABG pH 7.457 H POC ABG pCO2 32.1 L POC ABG pO2 76 L Sodium 132 L Potassium Chloride 94.7 L Carbon Dioxide BUN 53 H Creatinine 2.9 H Glucose 151 H POC Glucose 149 H Lactic Acid Calcium Phosphorus Magnesium Direct Bilirubin ALT Alkaline Phosphatase Troponin T C-Reactive Protein Total Protein Albumin Triglycerides Cholesterol LDL Cholesterol Direct HDL Cholesterol Urine WBC (Auto) Urine Creatinine Urine Total Protein Vancomycin Trough Rheumatoid Factor Complement C4 Miscellaneous Test Crossmatch 09/07/16 09/07/16 09/07/16 09:20 11:43 11:43 WBC 19.4 H RBC Hgb 8.3 L Hct 26.4 L D MCV 72 L D MCH 22 L MCHC RDW 17.9 H Plt Count Lymph % (Auto) 8.5 L [place] % (Auto) Lymph # [place] # 1.0 H Baso # Seg Neutrophils % 85.8 H Seg Neuts % (Manual) Lymphocytes % (Manual) Monocytes % (Manual) Eosinophils % (Manual) Basophils % (Manual) Nucleated RBC % Seg Neutrophils # 16.6 H Seg Neutrophils # Man Lymphocytes # (Manual) Monocytes # (Manual) Eosinophils # (Manual) PT INR Fibrinogen dRVVT Confirm Interp Factor V Activity POC ABG pH POC ABG pCO2 POC ABG pO2 Sodium 134 L Potassium Chloride 97.2 L Carbon Dioxide 20 L BUN 58 H Creatinine 2.9 H Glucose 147 H POC Glucose Lactic Acid Calcium Phosphorus 2.40 L Magnesium 2.40 H Direct Bilirubin ALT Alkaline Phosphatase Troponin T C-Reactive Protein Total Protein 5.8 L Albumin 2.2 L Triglycerides Cholesterol LDL Cholesterol Direct HDL Cholesterol Urine WBC (Auto) Urine Creatinine Urine Total Protein Vancomycin Trough Rheumatoid Factor Complement C4 58 H Miscellaneous Test Crossmatch 09/07/16 09/07/16 09/07/16 11:50 16:00 17:31 WBC RBC Hgb Hct MCV MCH MCHC RDW Plt Count Lymph % (Auto) [place] % (Auto) Lymph # [place] # Baso # Seg Neutrophils % Seg Neuts % (Manual) Lymphocytes % (Manual) Monocytes % (Manual) Eosinophils % (Manual) Basophils % (Manual) Nucleated RBC % Seg Neutrophils # Seg Neutrophils # Man Lymphocytes # (Manual) Monocytes # (Manual) Eosinophils # (Manual) PT INR Fibrinogen dRVVT Confirm Interp Factor V Activity POC ABG pH POC ABG pCO2 POC ABG pO2 158 H Sodium Potassium Chloride Carbon Dioxide BUN Creatinine Glucose POC Glucose 175 H Lactic Acid Calcium Phosphorus Magnesium Direct Bilirubin ALT Alkaline Phosphatase Troponin T C-Reactive Protein Total Protein Albumin Triglycerides Cholesterol LDL Cholesterol Direct HDL Cholesterol Urine WBC (Auto) Urine Creatinine 66.3 H Urine Total Protein Vancomycin Trough Rheumatoid Factor Complement C4 Miscellaneous Test Crossmatch 09/07/16 09/08/16 09/08/16 23:50 05:46 06:18 WBC 17.8 H RBC 3.58 L Hgb 8.1 L Hct 25.5 L MCV 71 L MCH 23 L MCHC RDW 18.4 H Plt Count Lymph % (Auto) [place] % (Auto) Lymph # [place] # Baso # Seg Neutrophils % Seg Neuts % (Manual) 92.0 H Lymphocytes % (Manual) 6.0 L Monocytes % (Manual) Eosinophils % (Manual) Basophils % (Manual) Nucleated RBC % Seg Neutrophils # Seg Neutrophils # Man 16.4 H Lymphocytes # (Manual) 1.1 L Monocytes # (Manual) Eosinophils # (Manual) PT INR Fibrinogen dRVVT Confirm Interp Factor V Activity POC ABG pH POC ABG pCO2 34.3 L POC ABG pO2 71 L Sodium Potassium Chloride Carbon Dioxide BUN Creatinine Glucose POC Glucose 216 H Lactic Acid Calcium Phosphorus Magnesium Direct Bilirubin ALT Alkaline Phosphatase Troponin T C-Reactive Protein Total Protein Albumin Triglycerides Cholesterol LDL Cholesterol Direct HDL Cholesterol Urine WBC (Auto) Urine Creatinine Urine Total Protein Vancomycin Trough Rheumatoid Factor Complement C4 Miscellaneous Test Crossmatch 09/08/16 09/08/16 09/08/16 06:18 06:51 10:55 WBC RBC Hgb Hct MCV MCH MCHC RDW Plt Count Lymph % (Auto) [place] % (Auto) Lymph # [place] # Baso # Seg Neutrophils % Seg Neuts % (Manual) Lymphocytes % (Manual) Monocytes % (Manual) Eosinophils % (Manual) Basophils % (Manual) Nucleated RBC % Seg Neutrophils # Seg Neutrophils # Man Lymphocytes # (Manual) Monocytes # (Manual) Eosinophils # (Manual) PT INR Fibrinogen dRVVT Confirm Interp Factor V Activity POC ABG pH POC ABG pCO2 POC ABG pO2 Sodium 133 L Potassium Chloride 96.9 L Carbon Dioxide 20 L BUN 63 H Creatinine 2.7 H Glucose 195 H POC Glucose 204 H 169 H Lactic Acid Calcium Phosphorus Magnesium Direct Bilirubin ALT Alkaline Phosphatase Troponin T C-Reactive Protein Total Protein Albumin Triglycerides Cholesterol LDL Cholesterol Direct HDL Cholesterol Urine WBC (Auto) Urine Creatinine Urine Total Protein Vancomycin Trough Rheumatoid Factor Complement C4 Miscellaneous Test Crossmatch 09/08/16 09/08/16 09/08/16 11:48 11:48 11:48 WBC RBC Hgb Hct MCV MCH MCHC RDW Plt Count Lymph % (Auto) [place] % (Auto) Lymph # [place] # Baso # Seg Neutrophils % Seg Neuts % (Manual) Lymphocytes % (Manual) Monocytes % (Manual) Eosinophils % (Manual) Basophils % (Manual) Nucleated RBC % Seg Neutrophils # Seg Neutrophils # Man Lymphocytes # (Manual) Monocytes # (Manual) Eosinophils # (Manual) PT INR Fibrinogen 750 H dRVVT Confirm Interp Factor V Activity POC ABG pH POC ABG pCO2 POC ABG pO2 Sodium Potassium Chloride Carbon Dioxide BUN Creatinine Glucose POC Glucose Lactic Acid Calcium Phosphorus Magnesium Direct Bilirubin ALT Alkaline Phosphatase Troponin T C-Reactive Protein 15.70 H Total Protein Albumin Triglycerides Cholesterol LDL Cholesterol Direct HDL Cholesterol Urine WBC (Auto) Urine Creatinine Urine Total Protein Vancomycin Trough Rheumatoid Factor 24 H Complement C4 Miscellaneous Test Crossmatch 09/08/16 09/08/16 09/09/16 15:35 18:25 00:24 WBC RBC Hgb Hct MCV MCH MCHC RDW Plt Count Lymph % (Auto) [place] % (Auto) Lymph # [place] # Baso # Seg Neutrophils % Seg Neuts % (Manual) Lymphocytes % (Manual) Monocytes % (Manual) Eosinophils % (Manual) Basophils % (Manual) Nucleated RBC % Seg Neutrophils # Seg Neutrophils # Man Lymphocytes # (Manual) Monocytes # (Manual) Eosinophils # (Manual) PT INR Fibrinogen dRVVT Confirm Interp Factor V Activity 182 H POC ABG pH POC ABG pCO2 POC ABG pO2 Sodium Potassium Chloride Carbon Dioxide BUN Creatinine Glucose POC Glucose 184 H 216 H Lactic Acid Calcium Phosphorus Magnesium Direct Bilirubin ALT Alkaline Phosphatase Troponin T C-Reactive Protein Total Protein Albumin Triglycerides Cholesterol LDL Cholesterol Direct HDL Cholesterol Urine WBC (Auto) Urine Creatinine Urine Total Protein Vancomycin Trough Rheumatoid Factor Complement C4 Miscellaneous Test Crossmatch 09/09/16 09/09/16 09/09/16 03:00 03:00 04:04 WBC 27.9 H RBC Hgb 8.7 L Hct 28.1 L MCV 72 L MCH 22 L MCHC RDW 18.4 H Plt Count 485 H Lymph % (Auto) [place] % (Auto) Lymph # [place] # Baso # Seg Neutrophils % Seg Neuts % (Manual) 77.0 H Lymphocytes % (Manual) 9.0 L Monocytes % (Manual) Eosinophils % (Manual) Basophils % (Manual) Nucleated RBC % Seg Neutrophils # Seg Neutrophils # Man 21.5 H Lymphocytes # (Manual) Monocytes # (Manual) 2.0 H Eosinophils # (Manual) PT INR Fibrinogen dRVVT Confirm Interp Factor V Activity POC ABG pH POC ABG pCO2 POC ABG pO2 121 H Sodium 135 L Potassium Chloride 96.3 L Carbon Dioxide 21 L BUN 83 H Creatinine 3.0 H Glucose 135 H POC Glucose Lactic Acid Calcium Phosphorus Magnesium Direct Bilirubin ALT Alkaline Phosphatase Troponin T C-Reactive Protein Total Protein Albumin Triglycerides Cholesterol LDL Cholesterol Direct HDL Cholesterol Urine WBC (Auto) Urine Creatinine Urine Total Protein Vancomycin Trough Rheumatoid Factor Complement C4 Miscellaneous Test Crossmatch 09/09/16 09/09/16 09/09/16 05:41 11:55 14:13 WBC RBC Hgb Hct MCV MCH MCHC RDW Plt Count Lymph % (Auto) [place] % (Auto) Lymph # [place] # Baso # Seg Neutrophils % Seg Neuts % (Manual) Lymphocytes % (Manual) Monocytes % (Manual) Eosinophils % (Manual) Basophils % (Manual) Nucleated RBC % Seg Neutrophils # Seg Neutrophils # Man Lymphocytes # (Manual) Monocytes # (Manual) Eosinophils # (Manual) PT INR Fibrinogen dRVVT Confirm Interp Factor V Activity POC ABG pH POC ABG pCO2 POC ABG pO2 Sodium Potassium Chloride Carbon Dioxide BUN Creatinine Glucose POC Glucose 155 H 186 H Lactic Acid Calcium Phosphorus Magnesium Direct Bilirubin ALT Alkaline Phosphatase Troponin T C-Reactive Protein Total Protein Albumin Triglycerides Cholesterol LDL Cholesterol Direct HDL Cholesterol Urine WBC (Auto) 25.0 H Urine Creatinine Urine Total Protein Vancomycin Trough Rheumatoid Factor Complement C4 Miscellaneous Test Crossmatch 09/09/16 09/09/16 09/10/16 17:33 23:13 05:09 WBC RBC Hgb Hct MCV MCH MCHC RDW Plt Count Lymph % (Auto) [place] % (Auto) Lymph # [place] # Baso # Seg Neutrophils % Seg Neuts % (Manual) Lymphocytes % (Manual) Monocytes % (Manual) Eosinophils % (Manual) Basophils % (Manual) Nucleated RBC % Seg Neutrophils # Seg Neutrophils # Man Lymphocytes # (Manual) Monocytes # (Manual) Eosinophils # (Manual) PT INR Fibrinogen dRVVT Confirm Interp Factor V Activity POC ABG pH POC ABG pCO2 POC ABG pO2 74 L Sodium Potassium Chloride Carbon Dioxide BUN Creatinine Glucose POC Glucose 211 H 215 H Lactic Acid Calcium Phosphorus Magnesium Direct Bilirubin ALT Alkaline Phosphatase Troponin T C-Reactive Protein Total Protein Albumin Triglycerides Cholesterol LDL Cholesterol Direct HDL Cholesterol Urine WBC (Auto) Urine Creatinine Urine Total Protein Vancomycin Trough Rheumatoid Factor Complement C4 Miscellaneous Test Crossmatch 09/10/16 09/10/16 09/10/16 05:17 05:17 11:31 WBC 15.8 H RBC 3.25 L Hgb 7.3 L Hct 22.9 L MCV 71 L MCH 23 L MCHC RDW 18.4 H Plt Count Lymph % (Auto) [place] % (Auto) Lymph # [place] # Baso # Seg Neutrophils % Seg Neuts % (Manual) 91.0 H Lymphocytes % (Manual) 4.0 L Monocytes % (Manual) Eosinophils % (Manual) Basophils % (Manual) Nucleated RBC % Seg Neutrophils # Seg Neutrophils # Man 14.4 H Lymphocytes # (Manual) 0.6 L Monocytes # (Manual) Eosinophils # (Manual) PT INR Fibrinogen dRVVT Confirm Interp Factor V Activity POC ABG pH POC ABG pCO2 POC ABG pO2 Sodium Potassium Chloride Carbon Dioxide 21 L BUN 93 H Creatinine 2.9 H Glucose 146 H POC Glucose 188 H Lactic Acid Calcium 8.1 L Phosphorus Magnesium Direct Bilirubin ALT Alkaline Phosphatase Troponin T C-Reactive Protein Total Protein Albumin Triglycerides Cholesterol LDL Cholesterol Direct HDL Cholesterol Urine WBC (Auto) Urine Creatinine Urine Total Protein Vancomycin Trough Rheumatoid Factor Complement C4 Miscellaneous Test Crossmatch 09/10/16 09/10/16 09/10/16 13:17 17:20 23:32 WBC RBC Hgb Hct MCV MCH MCHC RDW Plt Count Lymph % (Auto) [place] % (Auto) Lymph # [place] # Baso # Seg Neutrophils % Seg Neuts % (Manual) Lymphocytes % (Manual) Monocytes % (Manual) Eosinophils % (Manual) Basophils % (Manual) Nucleated RBC % Seg Neutrophils # Seg Neutrophils # Man Lymphocytes # (Manual) Monocytes # (Manual) Eosinophils # (Manual) PT INR Fibrinogen dRVVT Confirm Interp Factor V Activity POC ABG pH POC ABG pCO2 POC ABG pO2 Sodium Potassium Chloride Carbon Dioxide BUN Creatinine Glucose POC Glucose 199 H 186 H Lactic Acid Calcium Phosphorus Magnesium Direct Bilirubin ALT Alkaline Phosphatase Troponin T C-Reactive Protein Total Protein Albumin Triglycerides Cholesterol LDL Cholesterol Direct HDL Cholesterol Urine WBC (Auto) Urine Creatinine Urine Total Protein Vancomycin Trough Rheumatoid Factor Complement C4 Miscellaneous Test Crossmatch See Detail 09/11/16 09/11/16 09/11/16 05:10 05:10 05:17 WBC 28.4 H RBC Hgb 9.2 L Hct 29.3 L D MCV 73 L MCH 23 L MCHC RDW 18.9 H Plt Count 452 H Lymph % (Auto) [place] % (Auto) Lymph # [place] # Baso # Seg Neutrophils % Seg Neuts % (Manual) 89.5 H Lymphocytes % (Manual) 2.0 L Monocytes % (Manual) Eosinophils % (Manual) Basophils % (Manual) Nucleated RBC % Seg Neutrophils # Seg Neutrophils # Man 25.4 H Lymphocytes # (Manual) 0.6 L Monocytes # (Manual) 1.3 H Eosinophils # (Manual) PT INR Fibrinogen dRVVT Confirm Interp Factor V Activity POC ABG pH POC ABG pCO2 POC ABG pO2 Sodium 136 L Potassium Chloride Carbon Dioxide 18 L BUN 107 H Creatinine 2.6 H Glucose 187 H POC Glucose 230 H Lactic Acid Calcium 8.3 L Phosphorus Magnesium Direct Bilirubin ALT Alkaline Phosphatase Troponin T C-Reactive Protein Total Protein Albumin Triglycerides Cholesterol LDL Cholesterol Direct HDL Cholesterol Urine WBC (Auto) Urine Creatinine Urine Total Protein Vancomycin Trough Rheumatoid Factor Complement C4 Miscellaneous Test Crossmatch 09/11/16 09/11/16 09/11/16 05:55 12:02 17:32 WBC RBC Hgb Hct MCV MCH MCHC RDW Plt Count Lymph % (Auto) [place] % (Auto) Lymph # [place] # Baso # Seg Neutrophils % Seg Neuts % (Manual) Lymphocytes % (Manual) Monocytes % (Manual) Eosinophils % (Manual) Basophils % (Manual) Nucleated RBC % Seg Neutrophils # Seg Neutrophils # Man Lymphocytes # (Manual) Monocytes # (Manual) Eosinophils # (Manual) PT INR Fibrinogen dRVVT Confirm Interp Factor V Activity POC ABG pH POC ABG pCO2 33.8 L POC ABG pO2 Sodium Potassium Chloride Carbon Dioxide BUN Creatinine Glucose POC Glucose 191 H 239 H Lactic Acid Calcium Phosphorus Magnesium Direct Bilirubin ALT Alkaline Phosphatase Troponin T C-Reactive Protein Total Protein Albumin Triglycerides Cholesterol LDL Cholesterol Direct HDL Cholesterol Urine WBC (Auto) Urine Creatinine Urine Total Protein Vancomycin Trough Rheumatoid Factor Complement C4 Miscellaneous Test Crossmatch 09/11/16 09/12/16 09/12/16 23:52 05:09 05:32 WBC RBC Hgb Hct MCV MCH MCHC RDW Plt Count Lymph % (Auto) [place] % (Auto) Lymph # [place] # Baso # Seg Neutrophils % Seg Neuts % (Manual) Lymphocytes % (Manual) Monocytes % (Manual) Eosinophils % (Manual) Basophils % (Manual) Nucleated RBC % Seg Neutrophils # Seg Neutrophils # Man Lymphocytes # (Manual) Monocytes # (Manual) Eosinophils # (Manual) PT INR Fibrinogen dRVVT Confirm Interp Factor V Activity POC ABG pH POC ABG pCO2 34.6 L POC ABG pO2 Sodium Potassium Chloride Carbon Dioxide BUN Creatinine Glucose POC Glucose 265 H 184 H Lactic Acid Calcium Phosphorus Magnesium Direct Bilirubin ALT Alkaline Phosphatase Troponin T C-Reactive Protein Total Protein Albumin Triglycerides Cholesterol LDL Cholesterol Direct HDL Cholesterol Urine WBC (Auto) Urine Creatinine Urine Total Protein Vancomycin Trough Rheumatoid Factor Complement C4 Miscellaneous Test Crossmatch 09/12/16 09/12/16 09/12/16 06:45 06:45 07:22 WBC 31.7 H RBC 3.54 L Hgb 8.3 L Hct 25.9 L MCV 73 L MCH 23 L MCHC RDW 18.9 H Plt Count Lymph % (Auto) [place] % (Auto) Lymph # [place] # Baso # Seg Neutrophils % Seg Neuts % (Manual) 88.5 H Lymphocytes % (Manual) 4.5 L Monocytes % (Manual) Eosinophils % (Manual) Basophils % (Manual) Nucleated RBC % Seg Neutrophils # Seg Neutrophils # Man 28.1 H Lymphocytes # (Manual) Monocytes # (Manual) 1.0 H Eosinophils # (Manual) PT INR Fibrinogen dRVVT Confirm Interp Factor V Activity POC ABG pH POC ABG pCO2 POC ABG pO2 Sodium Potassium Chloride Carbon Dioxide 20 L BUN 115 H Creatinine 2.7 H Glucose 165 H POC Glucose Lactic Acid Calcium 8.0 L Phosphorus Magnesium Direct Bilirubin ALT Alkaline Phosphatase Troponin T C-Reactive Protein Total Protein Albumin Triglycerides 217 H Cholesterol LDL Cholesterol Direct HDL Cholesterol Urine WBC (Auto) Urine Creatinine Urine Total Protein Vancomycin Trough Rheumatoid Factor Complement C4 Miscellaneous Test Crossmatch 09/12/16 09/12/16 09/12/16 07:22 09:59 12:21 WBC RBC Hgb Hct MCV MCH MCHC RDW Plt Count Lymph % (Auto) [place] % (Auto) Lymph # [place] # Baso # Seg Neutrophils % Seg Neuts % (Manual) Lymphocytes % (Manual) Monocytes % (Manual) Eosinophils % (Manual) Basophils % (Manual) Nucleated RBC % Seg Neutrophils # Seg Neutrophils # Man Lymphocytes # (Manual) Monocytes # (Manual) Eosinophils # (Manual) PT INR Fibrinogen dRVVT Confirm Interp Positive H Factor V Activity POC ABG pH POC ABG pCO2 POC ABG pO2 Sodium Potassium Chloride Carbon Dioxide BUN Creatinine Glucose POC Glucose 224 H Lactic Acid Calcium Phosphorus Magnesium Direct Bilirubin ALT Alkaline Phosphatase Troponin T C-Reactive Protein 1.70 H Total Protein Albumin Triglycerides Cholesterol LDL Cholesterol Direct HDL Cholesterol Urine WBC (Auto) Urine Creatinine Urine Total Protein Vancomycin Trough Rheumatoid Factor Complement C4 Miscellaneous Test Crossmatch 09/12/16 09/12/16 09/13/16 16:51 23:28 04:00 WBC 45.0 H* RBC Hgb 9.4 L Hct MCV 75 L MCH 23 L MCHC RDW 19.0 H Plt Count 470 H Lymph % (Auto) [place] % (Auto) Lymph # [place] # Baso # Seg Neutrophils % Seg Neuts % (Manual) 89.0 H Lymphocytes % (Manual) 5.0 L Monocytes % (Manual) Eosinophils % (Manual) Basophils % (Manual) Nucleated RBC % Seg Neutrophils # Seg Neutrophils # Man 40.1 H Lymphocytes # (Manual) Monocytes # (Manual) Eosinophils # (Manual) PT INR Fibrinogen dRVVT Confirm Interp Factor V Activity POC ABG pH POC ABG pCO2 POC ABG pO2 Sodium Potassium Chloride Carbon Dioxide BUN Creatinine Glucose POC Glucose 169 H 150 H Lactic Acid Calcium Phosphorus Magnesium Direct Bilirubin ALT Alkaline Phosphatase Troponin T C-Reactive Protein Total Protein Albumin Triglycerides Cholesterol LDL Cholesterol Direct HDL Cholesterol Urine WBC (Auto) Urine Creatinine Urine Total Protein Vancomycin Trough Rheumatoid Factor Complement C4 Miscellaneous Test Crossmatch 09/13/16 09/13/16 09/13/16 04:00 11:26 17:31 WBC RBC Hgb Hct MCV MCH MCHC RDW Plt Count Lymph % (Auto) [place] % (Auto) Lymph # [place] # Baso # Seg Neutrophils % Seg Neuts % (Manual) Lymphocytes % (Manual) Monocytes % (Manual) Eosinophils % (Manual) Basophils % (Manual) Nucleated RBC % Seg Neutrophils # Seg Neutrophils # Man Lymphocytes # (Manual) Monocytes # (Manual) Eosinophils # (Manual) PT INR Fibrinogen dRVVT Confirm Interp Factor V Activity POC ABG pH POC ABG pCO2 POC ABG pO2 Sodium Potassium Chloride Carbon Dioxide 20 L BUN 116 H Creatinine 3.0 H Glucose 172 H POC Glucose 140 H 183 H Lactic Acid Calcium Phosphorus Magnesium Direct Bilirubin ALT Alkaline Phosphatase Troponin T C-Reactive Protein Total Protein 6.2 L Albumin 2.9 L Triglycerides Cholesterol LDL Cholesterol Direct HDL Cholesterol Urine WBC (Auto) Urine Creatinine Urine Total Protein Vancomycin Trough Rheumatoid Factor Complement C4 Miscellaneous Test Crossmatch 09/13/16 09/14/16 09/14/16 23:23 04:06 04:07 WBC 29.4 H RBC Hgb 8.9 L Hct 27.3 L MCV 75 L MCH 24 L MCHC RDW 19.1 H Plt Count Lymph % (Auto) [place] % (Auto) Lymph # [place] # Baso # Seg Neutrophils % Seg Neuts % (Manual) 84.0 H Lymphocytes % (Manual) 6.0 L Monocytes % (Manual) 9.0 H Eosinophils % (Manual) Basophils % (Manual) Nucleated RBC % Seg Neutrophils # Seg Neutrophils # Man 24.7 H Lymphocytes # (Manual) Monocytes # (Manual) 2.6 H Eosinophils # (Manual) PT INR Fibrinogen dRVVT Confirm Interp Factor V Activity POC ABG pH 7.342 L POC ABG pCO2 POC ABG pO2 116 H Sodium Potassium Chloride Carbon Dioxide BUN Creatinine Glucose POC Glucose 154 H Lactic Acid Calcium Phosphorus Magnesium Direct Bilirubin ALT Alkaline Phosphatase Troponin T C-Reactive Protein Total Protein Albumin Triglycerides Cholesterol LDL Cholesterol Direct HDL Cholesterol Urine WBC (Auto) Urine Creatinine Urine Total Protein Vancomycin Trough Rheumatoid Factor Complement C4 Miscellaneous Test Crossmatch 09/14/16 09/14/16 09/14/16 04:07 05:29 12:19 WBC RBC Hgb Hct MCV MCH MCHC RDW Plt Count Lymph % (Auto) [place] % (Auto) Lymph # [place] # Baso # Seg Neutrophils % Seg Neuts % (Manual) Lymphocytes % (Manual) Monocytes % (Manual) Eosinophils % (Manual) Basophils % (Manual) Nucleated RBC % Seg Neutrophils # Seg Neutrophils # Man Lymphocytes # (Manual) Monocytes # (Manual) Eosinophils # (Manual) PT INR Fibrinogen dRVVT Confirm Interp Factor V Activity POC ABG pH POC ABG pCO2 POC ABG pO2 Sodium 136 L Potassium Chloride Carbon Dioxide 18 L BUN 121 H Creatinine 2.8 H Glucose 214 H POC Glucose 239 H 181 H Lactic Acid Calcium Phosphorus Magnesium Direct Bilirubin ALT Alkaline Phosphatase Troponin T C-Reactive Protein Total Protein Albumin Triglycerides Cholesterol LDL Cholesterol Direct HDL Cholesterol Urine WBC (Auto) Urine Creatinine Urine Total Protein Vancomycin Trough Rheumatoid Factor Complement C4 Miscellaneous Test Crossmatch 09/14/16 09/14/16 09/15/16 18:12 23:37 05:00 WBC 26.1 H RBC 3.05 L Hgb 7.2 L Hct 22.9 L MCV 75 L MCH 24 L MCHC RDW 19.0 H Plt Count Lymph % (Auto) [place] % (Auto) Lymph # [place] # Baso # Seg Neutrophils % Seg Neuts % (Manual) Lymphocytes % (Manual) Monocytes % (Manual) Eosinophils % (Manual) Basophils % (Manual) Nucleated RBC % Seg Neutrophils # Seg Neutrophils # Man Lymphocytes # (Manual) Monocytes # (Manual) Eosinophils # (Manual) PT INR Fibrinogen dRVVT Confirm Interp Factor V Activity POC ABG pH POC ABG pCO2 POC ABG pO2 Sodium Potassium Chloride Carbon Dioxide BUN Creatinine Glucose POC Glucose 266 H 154 H Lactic Acid Calcium Phosphorus Magnesium Direct Bilirubin ALT Alkaline Phosphatase Troponin T C-Reactive Protein Total Protein Albumin Triglycerides Cholesterol LDL Cholesterol Direct HDL Cholesterol Urine WBC (Auto) Urine Creatinine Urine Total Protein Vancomycin Trough Rheumatoid Factor Complement C4 Miscellaneous Test Crossmatch 09/15/16 09/15/16 09/15/16 05:00 05:17 12:45 WBC RBC Hgb Hct MCV MCH MCHC RDW Plt Count Lymph % (Auto) [place] % (Auto) Lymph # [place] # Baso # Seg Neutrophils % Seg Neuts % (Manual) Lymphocytes % (Manual) Monocytes % (Manual) Eosinophils % (Manual) Basophils % (Manual) Nucleated RBC % Seg Neutrophils # Seg Neutrophils # Man Lymphocytes # (Manual) Monocytes # (Manual) Eosinophils # (Manual) PT INR Fibrinogen dRVVT Confirm Interp Factor V Activity POC ABG pH POC ABG pCO2 POC ABG pO2 Sodium Potassium 5.2 H Chloride Carbon Dioxide 18 L BUN 139 H Creatinine 3.7 H Glucose 227 H POC Glucose 226 H 244 H Lactic Acid Calcium 8.3 L Phosphorus Magnesium Direct Bilirubin ALT Alkaline Phosphatase Troponin T C-Reactive Protein Total Protein Albumin Triglycerides Cholesterol LDL Cholesterol Direct HDL Cholesterol Urine WBC (Auto) Urine Creatinine Urine Total Protein Vancomycin Trough Rheumatoid Factor Complement C4 Miscellaneous Test Crossmatch 09/15/16 09/15/16 09/15/16 14:32 17:33 23:35 WBC RBC Hgb Hct MCV MCH MCHC RDW Plt Count Lymph % (Auto) [place] % (Auto) Lymph # [place] # Baso # Seg Neutrophils % Seg Neuts % (Manual) Lymphocytes % (Manual) Monocytes % (Manual) Eosinophils % (Manual) Basophils % (Manual) Nucleated RBC % Seg Neutrophils # Seg Neutrophils # Man Lymphocytes # (Manual) Monocytes # (Manual) Eosinophils # (Manual) PT INR Fibrinogen dRVVT Confirm Interp Factor V Activity POC ABG pH POC ABG pCO2 27.7 L POC ABG pO2 120 H Sodium Potassium Chloride Carbon Dioxide BUN Creatinine Glucose POC Glucose 232 H 167 H Lactic Acid Calcium Phosphorus Magnesium Direct Bilirubin ALT Alkaline Phosphatase Troponin T C-Reactive Protein Total Protein Albumin Triglycerides Cholesterol LDL Cholesterol Direct HDL Cholesterol Urine WBC (Auto) Urine Creatinine Urine Total Protein Vancomycin Trough Rheumatoid Factor Complement C4 Miscellaneous Test Crossmatch 09/16/16 09/16/16 09/16/16 03:58 10:27 10:27 WBC 19.0 H RBC 2.77 L Hgb 6.5 L Hct 20.9 L MCV 76 L MCH 23 L MCHC RDW 19.3 H Plt Count Lymph % (Auto) 11.0 L [place] % (Auto) Lymph # [place] # 1.1 H Baso # Seg Neutrophils % 82.5 H Seg Neuts % (Manual) Lymphocytes % (Manual) Monocytes % (Manual) Eosinophils % (Manual) Basophils % (Manual) Nucleated RBC % Seg Neutrophils # 15.7 H Seg Neutrophils # Man Lymphocytes # (Manual) Monocytes # (Manual) Eosinophils # (Manual) PT INR Fibrinogen dRVVT Confirm Interp Factor V Activity POC ABG pH POC ABG pCO2 POC ABG pO2 Sodium Potassium Chloride 109.3 H Carbon Dioxide 18 L BUN 139 H Creatinine 4.1 H Glucose 144 H POC Glucose 146 H Lactic Acid Calcium 8.1 L Phosphorus Magnesium Direct Bilirubin ALT Alkaline Phosphatase Troponin T C-Reactive Protein Total Protein Albumin Triglycerides Cholesterol LDL Cholesterol Direct HDL Cholesterol Urine WBC (Auto) Urine Creatinine Urine Total Protein Vancomycin Trough Rheumatoid Factor Complement C4 Miscellaneous Test Crossmatch 09/16/16 09/16/16 09/16/16 12:04 12:10 13:55 WBC RBC Hgb Hct MCV MCH MCHC RDW Plt Count Lymph % (Auto) [place] % (Auto) Lymph # [place] # Baso # Seg Neutrophils % Seg Neuts % (Manual) Lymphocytes % (Manual) Monocytes % (Manual) Eosinophils % (Manual) Basophils % (Manual) Nucleated RBC % Seg Neutrophils # Seg Neutrophils # Man Lymphocytes # (Manual) Monocytes # (Manual) Eosinophils # (Manual) PT INR Fibrinogen dRVVT Confirm Interp Factor V Activity POC ABG pH POC ABG pCO2 32.9 L POC ABG pO2 Sodium Potassium Chloride Carbon Dioxide BUN Creatinine Glucose POC Glucose 185 H Lactic Acid Calcium Phosphorus Magnesium Direct Bilirubin ALT Alkaline Phosphatase Troponin T C-Reactive Protein Total Protein Albumin Triglycerides Cholesterol LDL Cholesterol Direct HDL Cholesterol Urine WBC (Auto) Urine Creatinine Urine Total Protein Vancomycin Trough Rheumatoid Factor Complement C4 Miscellaneous Test Crossmatch See Detail 09/16/16 09/16/16 09/16/16 17:55 19:19 23:48 WBC RBC Hgb Hct MCV MCH MCHC RDW Plt Count Lymph % (Auto) [place] % (Auto) Lymph # [place] # Baso # Seg Neutrophils % Seg Neuts % (Manual) Lymphocytes % (Manual) Monocytes % (Manual) Eosinophils % (Manual) Basophils % (Manual) Nucleated RBC % Seg Neutrophils # Seg Neutrophils # Man Lymphocytes # (Manual) Monocytes # (Manual) Eosinophils # (Manual) PT INR Fibrinogen dRVVT Confirm Interp Factor V Activity POC ABG pH POC ABG pCO2 POC ABG pO2 Sodium Potassium Chloride Carbon Dioxide BUN Creatinine Glucose POC Glucose 222 H 107 H Lactic Acid Calcium Phosphorus Magnesium Direct Bilirubin ALT Alkaline Phosphatase Troponin T C-Reactive Protein Total Protein Albumin Triglycerides Cholesterol LDL Cholesterol Direct HDL Cholesterol Urine WBC (Auto) Urine Creatinine 47.4 H Urine Total Protein 16 H Vancomycin Trough Rheumatoid Factor Complement C4 Miscellaneous Test Crossmatch 09/17/16 09/17/16 09/17/16 03:45 03:45 04:55 WBC 19.6 H RBC 3.41 L Hgb 8.5 L Hct 26.7 L MCV 78 L MCH 25 L MCHC RDW 19.9 H Plt Count Lymph % (Auto) 9.3 L [place] % (Auto) Lymph # [place] # 1.2 H Baso # Seg Neutrophils % 83.9 H Seg Neuts % (Manual) Lymphocytes % (Manual) Monocytes % (Manual) Eosinophils % (Manual) Basophils % (Manual) Nucleated RBC % Seg Neutrophils # 16.4 H Seg Neutrophils # Man Lymphocytes # (Manual) Monocytes # (Manual) Eosinophils # (Manual) PT INR Fibrinogen dRVVT Confirm Interp Factor V Activity POC ABG pH POC ABG pCO2 POC ABG pO2 Sodium 146 H Potassium 5.1 H Chloride 110.9 H Carbon Dioxide 16 L BUN 146 H Creatinine 4.0 H Glucose 108 H POC Glucose 133 H Lactic Acid Calcium Phosphorus Magnesium 3.00 H Direct Bilirubin ALT Alkaline Phosphatase Troponin T C-Reactive Protein Total Protein Albumin Triglycerides Cholesterol LDL Cholesterol Direct HDL Cholesterol Urine WBC (Auto) Urine Creatinine Urine Total Protein Vancomycin Trough Rheumatoid Factor Complement C4 Miscellaneous Test Crossmatch 09/17/16 09/17/16 09/17/16 11:15 17:33 23:47 WBC RBC Hgb Hct MCV MCH MCHC RDW Plt Count Lymph % (Auto) [place] % (Auto) Lymph # [place] # Baso # Seg Neutrophils % Seg Neuts % (Manual) Lymphocytes % (Manual) Monocytes % (Manual) Eosinophils % (Manual) Basophils % (Manual) Nucleated RBC % Seg Neutrophils # Seg Neutrophils # Man Lymphocytes # (Manual) Monocytes # (Manual) Eosinophils # (Manual) PT INR Fibrinogen dRVVT Confirm Interp Factor V Activity POC ABG pH POC ABG pCO2 POC ABG pO2 Sodium Potassium Chloride Carbon Dioxide BUN Creatinine Glucose POC Glucose 176 H 246 H 148 H Lactic Acid Calcium Phosphorus Magnesium Direct Bilirubin ALT Alkaline Phosphatase Troponin T C-Reactive Protein Total Protein Albumin Triglycerides Cholesterol LDL Cholesterol Direct HDL Cholesterol Urine WBC (Auto) Urine Creatinine Urine Total Protein Vancomycin Trough Rheumatoid Factor Complement C4 Miscellaneous Test Crossmatch 09/18/16 09/18/16 09/18/16 05:33 08:31 08:31 WBC 18.0 H RBC 3.17 L Hgb 9.0 L Hct 25.7 L MCV MCH MCHC 35 H RDW 20.4 H Plt Count Lymph % (Auto) [place] % (Auto) Lymph # [place] # Baso # Seg Neutrophils % Seg Neuts % (Manual) Lymphocytes % (Manual) Monocytes % (Manual) Eosinophils % (Manual) Basophils % (Manual) Nucleated RBC % Seg Neutrophils # Seg Neutrophils # Man Lymphocytes # (Manual) Monocytes # (Manual) Eosinophils # (Manual) PT INR Fibrinogen dRVVT Confirm Interp Factor V Activity POC ABG pH POC ABG pCO2 POC ABG pO2 Sodium Potassium Chloride Carbon Dioxide 15 L BUN 124 H Creatinine 3.8 H Glucose POC Glucose 120 H Lactic Acid Calcium 8.1 L Phosphorus Magnesium Direct Bilirubin ALT Alkaline Phosphatase Troponin T C-Reactive Protein Total Protein Albumin Triglycerides Cholesterol LDL Cholesterol Direct HDL Cholesterol Urine WBC (Auto) Urine Creatinine Urine Total Protein Vancomycin Trough Rheumatoid Factor Complement C4 Miscellaneous Test Crossmatch 09/18/16 09/18/16 09/18/16 12:03 15:34 17:50 WBC RBC Hgb Hct MCV MCH MCHC RDW Plt Count Lymph % (Auto) [place] % (Auto) Lymph # [place] # Baso # Seg Neutrophils % Seg Neuts % (Manual) Lymphocytes % (Manual) Monocytes % (Manual) Eosinophils % (Manual) Basophils % (Manual) Nucleated RBC % Seg Neutrophils # Seg Neutrophils # Man Lymphocytes # (Manual) Monocytes # (Manual) Eosinophils # (Manual) PT INR Fibrinogen dRVVT Confirm Interp Factor V Activity POC ABG pH POC ABG pCO2 25.7 L POC ABG pO2 66 L Sodium Potassium Chloride Carbon Dioxide BUN Creatinine Glucose POC Glucose 156 H 220 H Lactic Acid Calcium Phosphorus Magnesium Direct Bilirubin ALT Alkaline Phosphatase Troponin T C-Reactive Protein Total Protein Albumin Triglycerides Cholesterol LDL Cholesterol Direct HDL Cholesterol Urine WBC (Auto) Urine Creatinine Urine Total Protein Vancomycin Trough Rheumatoid Factor Complement C4 Miscellaneous Test Crossmatch 09/19/16 09/19/16 09/19/16 06:21 09:50 09:50 WBC 17.1 H RBC 3.49 L Hgb 9.0 L Hct 28.1 L MCV MCH 26 L MCHC RDW 20.8 H Plt Count Lymph % (Auto) 11.5 L [place] % (Auto) 7.5 H Lymph # [place] # 1.3 H Baso # Seg Neutrophils % 79.8 H Seg Neuts % (Manual) Lymphocytes % (Manual) Monocytes % (Manual) Eosinophils % (Manual) Basophils % (Manual) Nucleated RBC % Seg Neutrophils # 13.7 H Seg Neutrophils # Man Lymphocytes # (Manual) Monocytes # (Manual) Eosinophils # (Manual) PT INR Fibrinogen dRVVT Confirm Interp Factor V Activity POC ABG pH POC ABG pCO2 POC ABG pO2 Sodium Potassium Chloride 108.6 H Carbon Dioxide 15 L BUN 125 H Creatinine 4.1 H Glucose 124 H POC Glucose 119 H Lactic Acid Calcium Phosphorus Magnesium Direct Bilirubin ALT Alkaline Phosphatase Troponin T C-Reactive Protein Total Protein Albumin Triglycerides Cholesterol LDL Cholesterol Direct HDL Cholesterol Urine WBC (Auto) Urine Creatinine Urine Total Protein Vancomycin Trough Rheumatoid Factor Complement C4 Miscellaneous Test Crossmatch 09/19/16 09/19/16 09/19/16 11:25 17:53 23:36 WBC RBC Hgb Hct MCV MCH MCHC RDW Plt Count Lymph % (Auto) [place] % (Auto) Lymph # [place] # Baso # Seg Neutrophils % Seg Neuts % (Manual) Lymphocytes % (Manual) Monocytes % (Manual) Eosinophils % (Manual) Basophils % (Manual) Nucleated RBC % Seg Neutrophils # Seg Neutrophils # Man Lymphocytes # (Manual) Monocytes # (Manual) Eosinophils # (Manual) PT INR Fibrinogen dRVVT Confirm Interp Factor V Activity POC ABG pH POC ABG pCO2 POC ABG pO2 Sodium Potassium Chloride Carbon Dioxide BUN Creatinine Glucose POC Glucose 160 H 245 H 121 H Lactic Acid Calcium Phosphorus Magnesium Direct Bilirubin ALT Alkaline Phosphatase Troponin T C-Reactive Protein Total Protein Albumin Triglycerides Cholesterol LDL Cholesterol Direct HDL Cholesterol Urine WBC (Auto) Urine Creatinine Urine Total Protein Vancomycin Trough Rheumatoid Factor Complement C4 Miscellaneous Test Crossmatch 09/20/16 09/20/16 09/20/16 04:10 04:10 04:10 WBC 17.0 H RBC 3.21 L Hgb 8.2 L Hct 25.5 L MCV MCH 26 L MCHC RDW 20.9 H Plt Count Lymph % (Auto) [place] % (Auto) Lymph # [place] # Baso # Seg Neutrophils % Seg Neuts % (Manual) Lymphocytes % (Manual) Monocytes % (Manual) Eosinophils % (Manual) Basophils % (Manual) Nucleated RBC % Seg Neutrophils # Seg Neutrophils # Man Lymphocytes # (Manual) Monocytes # (Manual) Eosinophils # (Manual) PT INR Fibrinogen dRVVT Confirm Interp Factor V Activity POC ABG pH POC ABG pCO2 POC ABG pO2 Sodium Potassium Chloride 111.0 H Carbon Dioxide 16 L BUN 129 H Creatinine 3.7 H Glucose 115 H POC Glucose Lactic Acid Calcium 8.2 L Phosphorus Magnesium Direct Bilirubin ALT Alkaline Phosphatase Troponin T C-Reactive Protein Total Protein Albumin Triglycerides 243 H Cholesterol LDL Cholesterol Direct HDL Cholesterol Urine WBC (Auto) Urine Creatinine Urine Total Protein Vancomycin Trough Rheumatoid Factor Complement C4 Miscellaneous Test Crossmatch 09/20/16 09/20/16 09/20/16 05:40 11:52 16:50 WBC RBC Hgb Hct MCV MCH MCHC RDW Plt Count Lymph % (Auto) [place] % (Auto) Lymph # [place] # Baso # Seg Neutrophils % Seg Neuts % (Manual) Lymphocytes % (Manual) Monocytes % (Manual) Eosinophils % (Manual) Basophils % (Manual) Nucleated RBC % Seg Neutrophils # Seg Neutrophils # Man Lymphocytes # (Manual) Monocytes # (Manual) Eosinophils # (Manual) PT INR Fibrinogen dRVVT Confirm Interp Factor V Activity POC ABG pH POC ABG pCO2 POC ABG pO2 Sodium Potassium Chloride Carbon Dioxide BUN Creatinine Glucose POC Glucose 131 H 183 H 236 H Lactic Acid Calcium Phosphorus Magnesium Direct Bilirubin ALT Alkaline Phosphatase Troponin T C-Reactive Protein Total Protein Albumin Triglycerides Cholesterol LDL Cholesterol Direct HDL Cholesterol Urine WBC (Auto) Urine Creatinine Urine Total Protein Vancomycin Trough Rheumatoid Factor Complement C4 Miscellaneous Test Crossmatch 09/20/16 09/21/16 09/21/16 23:51 03:30 04:44 WBC RBC Hgb Hct MCV MCH MCHC RDW Plt Count Lymph % (Auto) [place] % (Auto) Lymph # [place] # Baso # Seg Neutrophils % Seg Neuts % (Manual) Lymphocytes % (Manual) Monocytes % (Manual) Eosinophils % (Manual) Basophils % (Manual) Nucleated RBC % Seg Neutrophils # Seg Neutrophils # Man Lymphocytes # (Manual) Monocytes # (Manual) Eosinophils # (Manual) PT INR Fibrinogen dRVVT Confirm Interp Factor V Activity POC ABG pH POC ABG pCO2 POC ABG pO2 Sodium Potassium Chloride Carbon Dioxide BUN Creatinine Glucose POC Glucose 114 H 141 H Lactic Acid Calcium Phosphorus Magnesium 2.70 H Direct Bilirubin ALT Alkaline Phosphatase Troponin T C-Reactive Protein Total Protein Albumin Triglycerides Cholesterol LDL Cholesterol Direct HDL Cholesterol Urine WBC (Auto) Urine Creatinine Urine Total Protein Vancomycin Trough Rheumatoid Factor Complement C4 Miscellaneous Test Crossmatch 09/21/16 09/21/16 09/21/16 07:45 07:45 10:01 WBC 13.8 H RBC 2.94 L Hgb 7.5 L Hct 23.5 L MCV MCH 26 L MCHC RDW 21.2 H Plt Count Lymph % (Auto) 6.9 L [place] % (Auto) 9.4 H Lymph # 0.9 L [place] # 1.3 H Baso # Seg Neutrophils % 83.2 H Seg Neuts % (Manual) Lymphocytes % (Manual) Monocytes % (Manual) Eosinophils % (Manual) Basophils % (Manual) Nucleated RBC % Seg Neutrophils # 11.5 H Seg Neutrophils # Man Lymphocytes # (Manual) Monocytes # (Manual) Eosinophils # (Manual) PT INR Fibrinogen dRVVT Confirm Interp Factor V Activity POC ABG pH 7.308 L POC ABG pCO2 31.9 L POC ABG pO2 148 H Sodium 147 H Potassium Chloride 114.2 H Carbon Dioxide 15 L BUN 120 H Creatinine 3.9 H Glucose 156 H POC Glucose Lactic Acid Calcium 8.2 L Phosphorus Magnesium Direct Bilirubin ALT Alkaline Phosphatase Troponin T C-Reactive Protein Total Protein Albumin Triglycerides Cholesterol LDL Cholesterol Direct HDL Cholesterol Urine WBC (Auto) Urine Creatinine Urine Total Protein Vancomycin Trough Rheumatoid Factor Complement C4 Miscellaneous Test Crossmatch 09/21/16 09/21/16 09/21/16 12:00 12:03 13:00 WBC RBC Hgb Hct MCV MCH MCHC RDW Plt Count Lymph % (Auto) [place] % (Auto) Lymph # [place] # Baso # Seg Neutrophils % Seg Neuts % (Manual) Lymphocytes % (Manual) Monocytes % (Manual) Eosinophils % (Manual) Basophils % (Manual) Nucleated RBC % Seg Neutrophils # Seg Neutrophils # Man Lymphocytes # (Manual) Monocytes # (Manual) Eosinophils # (Manual) PT INR Fibrinogen dRVVT Confirm Interp Factor V Activity POC ABG pH POC ABG pCO2 POC ABG pO2 Sodium Potassium Chloride Carbon Dioxide BUN Creatinine Glucose POC Glucose 163 H Lactic Acid Calcium Phosphorus Magnesium Direct Bilirubin ALT Alkaline Phosphatase Troponin T C-Reactive Protein Total Protein Albumin Triglycerides Cholesterol LDL Cholesterol Direct HDL Cholesterol Urine WBC (Auto) Urine Creatinine 54.8 H Urine Total Protein Vancomycin Trough 2.3 L Rheumatoid Factor Complement C4 Miscellaneous Test Crossmatch 09/21/16 09/21/16 09/22/16 16:51 23:17 06:27 WBC RBC Hgb Hct MCV MCH MCHC RDW Plt Count Lymph % (Auto) [place] % (Auto) Lymph # [place] # Baso # Seg Neutrophils % Seg Neuts % (Manual) Lymphocytes % (Manual) Monocytes % (Manual) Eosinophils % (Manual) Basophils % (Manual) Nucleated RBC % Seg Neutrophils # Seg Neutrophils # Man Lymphocytes # (Manual) Monocytes # (Manual) Eosinophils # (Manual) PT INR Fibrinogen dRVVT Confirm Interp Factor V Activity POC ABG pH POC ABG pCO2 POC ABG pO2 Sodium Potassium Chloride Carbon Dioxide BUN Creatinine Glucose POC Glucose 206 H 114 H 115 H Lactic Acid Calcium Phosphorus Magnesium Direct Bilirubin ALT Alkaline Phosphatase Troponin T C-Reactive Protein Total Protein Albumin Triglycerides Cholesterol LDL Cholesterol Direct HDL Cholesterol Urine WBC (Auto) Urine Creatinine Urine Total Protein Vancomycin Trough Rheumatoid Factor Complement C4 Miscellaneous Test Crossmatch 09/22/16 09/22/16 09/22/16 07:50 07:50 12:00 WBC 17.8 H RBC 3.04 L Hgb 8.0 L Hct 24.7 L MCV MCH 26 L MCHC RDW 21.6 H Plt Count Lymph % (Auto) [place] % (Auto) Lymph # [place] # Baso # Seg Neutrophils % Seg Neuts % (Manual) Lymphocytes % (Manual) Monocytes % (Manual) Eosinophils % (Manual) Basophils % (Manual) Nucleated RBC % Seg Neutrophils # Seg Neutrophils # Man Lymphocytes # (Manual) Monocytes # (Manual) Eosinophils # (Manual) PT INR Fibrinogen dRVVT Confirm Interp Factor V Activity POC ABG pH POC ABG pCO2 POC ABG pO2 Sodium 150 H Potassium Chloride 118.2 H Carbon Dioxide 14 L BUN 111 H Creatinine 3.7 H Glucose 157 H POC Glucose 183 H Lactic Acid Calcium Phosphorus Magnesium Direct Bilirubin ALT Alkaline Phosphatase Troponin T C-Reactive Protein Total Protein Albumin Triglycerides Cholesterol LDL Cholesterol Direct HDL Cholesterol Urine WBC (Auto) Urine Creatinine Urine Total Protein Vancomycin Trough Rheumatoid Factor Complement C4 Miscellaneous Test Crossmatch 09/22/16 09/22/16 09/23/16 17:29 23:10 05:00 WBC 19.2 H RBC 3.13 L Hgb 8.0 L Hct 25.2 L MCV MCH 26 L MCHC RDW 22.1 H Plt Count Lymph % (Auto) [place] % (Auto) Lymph # [place] # Baso # Seg Neutrophils % Seg Neuts % (Manual) 92.0 H Lymphocytes % (Manual) 3.0 L Monocytes % (Manual) Eosinophils % (Manual) Basophils % (Manual) Nucleated RBC % Seg Neutrophils # Seg Neutrophils # Man 17.7 H Lymphocytes # (Manual) 0.6 L Monocytes # (Manual) Eosinophils # (Manual) PT INR Fibrinogen dRVVT Confirm Interp Factor V Activity POC ABG pH POC ABG pCO2 POC ABG pO2 Sodium Potassium Chloride Carbon Dioxide BUN Creatinine Glucose POC Glucose 197 H 169 H Lactic Acid Calcium Phosphorus Magnesium Direct Bilirubin ALT Alkaline Phosphatase Troponin T C-Reactive Protein Total Protein Albumin Triglycerides Cholesterol LDL Cholesterol Direct HDL Cholesterol Urine WBC (Auto) Urine Creatinine Urine Total Protein Vancomycin Trough Rheumatoid Factor Complement C4 Miscellaneous Test Crossmatch 09/23/16 09/23/16 09/23/16 05:00 05:00 05:10 WBC RBC Hgb Hct MCV MCH MCHC RDW Plt Count Lymph % (Auto) [place] % (Auto) Lymph # [place] # Baso # Seg Neutrophils % Seg Neuts % (Manual) Lymphocytes % (Manual) Monocytes % (Manual) Eosinophils % (Manual) Basophils % (Manual) Nucleated RBC % Seg Neutrophils # Seg Neutrophils # Man Lymphocytes # (Manual) Monocytes # (Manual) Eosinophils # (Manual) PT INR Fibrinogen dRVVT Confirm Interp Factor V Activity POC ABG pH POC ABG pCO2 POC ABG pO2 Sodium 147 H Potassium 3.2 L Chloride 115.7 H Carbon Dioxide 13 L BUN 111 H Creatinine 3.8 H Glucose 194 H POC Glucose 188 H Lactic Acid Calcium 7.3 L D Phosphorus Magnesium Direct Bilirubin ALT Alkaline Phosphatase Troponin T C-Reactive Protein 3.20 H Total Protein Albumin Triglycerides Cholesterol LDL Cholesterol Direct HDL Cholesterol Urine WBC (Auto) Urine Creatinine Urine Total Protein Vancomycin Trough Rheumatoid Factor Complement C4 Miscellaneous Test Crossmatch 09/23/16 09/23/16 09/23/16 11:37 12:29 18:01 WBC RBC Hgb Hct MCV MCH MCHC RDW Plt Count Lymph % (Auto) [place] % (Auto) Lymph # [place] # Baso # Seg Neutrophils % Seg Neuts % (Manual) Lymphocytes % (Manual) Monocytes % (Manual) Eosinophils % (Manual) Basophils % (Manual) Nucleated RBC % Seg Neutrophils # Seg Neutrophils # Man Lymphocytes # (Manual) Monocytes # (Manual) Eosinophils # (Manual) PT INR Fibrinogen dRVVT Confirm Interp Factor V Activity POC ABG pH POC ABG pCO2 18.9 L POC ABG pO2 143 H Sodium Potassium Chloride Carbon Dioxide BUN Creatinine Glucose POC Glucose 153 H 108 H Lactic Acid Calcium Phosphorus Magnesium Direct Bilirubin ALT Alkaline Phosphatase Troponin T C-Reactive Protein Total Protein Albumin Triglycerides Cholesterol LDL Cholesterol Direct HDL Cholesterol Urine WBC (Auto) Urine Creatinine Urine Total Protein Vancomycin Trough Rheumatoid Factor Complement C4 Miscellaneous Test Crossmatch 09/23/16 09/23/16 09/24/16 21:19 23:43 05:16 WBC RBC Hgb Hct MCV MCH MCHC RDW Plt Count Lymph % (Auto) [place] % (Auto) Lymph # [place] # Baso # Seg Neutrophils % Seg Neuts % (Manual) Lymphocytes % (Manual) Monocytes % (Manual) Eosinophils % (Manual) Basophils % (Manual) Nucleated RBC % Seg Neutrophils # Seg Neutrophils # Man Lymphocytes # (Manual) Monocytes # (Manual) Eosinophils # (Manual) PT INR Fibrinogen dRVVT Confirm Interp Factor V Activity POC ABG pH POC ABG pCO2 17.3 L POC ABG pO2 112 H Sodium Potassium Chloride Carbon Dioxide BUN Creatinine Glucose POC Glucose 143 H 164 H Lactic Acid Calcium Phosphorus Magnesium Direct Bilirubin ALT Alkaline Phosphatase Troponin T C-Reactive Protein Total Protein Albumin Triglycerides Cholesterol LDL Cholesterol Direct HDL Cholesterol Urine WBC (Auto) Urine Creatinine Urine Total Protein Vancomycin Trough Rheumatoid Factor Complement C4 Miscellaneous Test Crossmatch 09/24/16 09/24/16 09/24/16 05:21 11:58 17:06 WBC RBC Hgb Hct MCV MCH MCHC RDW Plt Count Lymph % (Auto) [place] % (Auto) Lymph # [place] # Baso # Seg Neutrophils % Seg Neuts % (Manual) Lymphocytes % (Manual) Monocytes % (Manual) Eosinophils % (Manual) Basophils % (Manual) Nucleated RBC % Seg Neutrophils # Seg Neutrophils # Man Lymphocytes # (Manual) Monocytes # (Manual) Eosinophils # (Manual) PT INR Fibrinogen dRVVT Confirm Interp Factor V Activity POC ABG pH POC ABG pCO2 POC ABG pO2 Sodium Potassium Chloride Carbon Dioxide 10 L BUN 103 H Creatinine 4.3 H Glucose 163 H POC Glucose 173 H 167 H Lactic Acid Calcium 6.5 L Phosphorus Magnesium Direct Bilirubin ALT Alkaline Phosphatase Troponin T C-Reactive Protein Total Protein Albumin Triglycerides Cholesterol LDL Cholesterol Direct HDL Cholesterol Urine WBC (Auto) Urine Creatinine Urine Total Protein Vancomycin Trough Rheumatoid Factor Complement C4 Miscellaneous Test Crossmatch 09/24/16 09/24/16 09/24/16 20:15 21:02 23:48 WBC RBC Hgb Hct MCV MCH MCHC RDW Plt Count Lymph % (Auto) [place] % (Auto) Lymph # [place] # Baso # Seg Neutrophils % Seg Neuts % (Manual) Lymphocytes % (Manual) Monocytes % (Manual) Eosinophils % (Manual) Basophils % (Manual) Nucleated RBC % Seg Neutrophils # Seg Neutrophils # Man Lymphocytes # (Manual) Monocytes # (Manual) Eosinophils # (Manual) PT INR Fibrinogen dRVVT Confirm Interp Factor V Activity POC ABG pH 7.288 L POC ABG pCO2 30.2 L 21.5 L POC ABG pO2 32 L 39 L Sodium Potassium Chloride Carbon Dioxide BUN Creatinine Glucose POC Glucose 109 H Lactic Acid Calcium Phosphorus Magnesium Direct Bilirubin ALT Alkaline Phosphatase Troponin T C-Reactive Protein Total Protein Albumin Triglycerides Cholesterol LDL Cholesterol Direct HDL Cholesterol Urine WBC (Auto) Urine Creatinine Urine Total Protein Vancomycin Trough Rheumatoid Factor Complement C4 Miscellaneous Test Crossmatch 09/25/16 09/25/16 09/25/16 04:20 04:20 04:20 WBC RBC 2.58 L Hgb 7.0 L Hct 21.0 L MCV MCH 27 L MCHC RDW 23.8 H Plt Count Lymph % (Auto) [place] % (Auto) Lymph # [place] # Baso # Seg Neutrophils % Seg Neuts % (Manual) Lymphocytes % (Manual) 12.0 L Monocytes % (Manual) Eosinophils % (Manual) 7.0 H Basophils % (Manual) 2.0 H Nucleated RBC % Seg Neutrophils # Seg Neutrophils # Man Lymphocytes # (Manual) 0.9 L Monocytes # (Manual) Eosinophils # (Manual) 0.5 H PT INR Fibrinogen dRVVT Confirm Interp Factor V Activity POC ABG pH POC ABG pCO2 POC ABG pO2 Sodium Potassium Chloride Carbon Dioxide 15 L BUN 72 H Creatinine 3.8 H Glucose POC Glucose Lactic Acid Calcium 6.0 L Phosphorus 4.60 H Magnesium 1.60 L Direct Bilirubin ALT Alkaline Phosphatase Troponin T C-Reactive Protein Total Protein Albumin Triglycerides Cholesterol LDL Cholesterol Direct HDL Cholesterol Urine WBC (Auto) Urine Creatinine Urine Total Protein Vancomycin Trough Rheumatoid Factor Complement C4 Miscellaneous Test Crossmatch 09/25/16 09/25/16 09/25/16 04:57 08:02 10:30 WBC RBC Hgb Hct MCV MCH MCHC RDW Plt Count Lymph % (Auto) [place] % (Auto) Lymph # [place] # Baso # Seg Neutrophils % Seg Neuts % (Manual) Lymphocytes % (Manual) Monocytes % (Manual) Eosinophils % (Manual) Basophils % (Manual) Nucleated RBC % Seg Neutrophils # Seg Neutrophils # Man Lymphocytes # (Manual) Monocytes # (Manual) Eosinophils # (Manual) PT INR Fibrinogen dRVVT Confirm Interp Factor V Activity POC ABG pH POC ABG pCO2 24.7 L POC ABG pO2 152 H Sodium Potassium Chloride Carbon Dioxide BUN Creatinine Glucose POC Glucose 113 H Lactic Acid Calcium Phosphorus Magnesium Direct Bilirubin ALT Alkaline Phosphatase Troponin T C-Reactive Protein Total Protein Albumin Triglycerides Cholesterol LDL Cholesterol Direct HDL Cholesterol Urine WBC (Auto) Urine Creatinine Urine Total Protein Vancomycin Trough Rheumatoid Factor Complement C4 Miscellaneous Test Crossmatch See Detail 09/25/16 09/25/16 09/25/16 12:05 17:44 23:47 WBC RBC Hgb Hct MCV MCH MCHC RDW Plt Count Lymph % (Auto) [place] % (Auto) Lymph # [place] # Baso # Seg Neutrophils % Seg Neuts % (Manual) Lymphocytes % (Manual) Monocytes % (Manual) Eosinophils % (Manual) Basophils % (Manual) Nucleated RBC % Seg Neutrophils # Seg Neutrophils # Man Lymphocytes # (Manual) Monocytes # (Manual) Eosinophils # (Manual) PT INR Fibrinogen dRVVT Confirm Interp Factor V Activity POC ABG pH POC ABG pCO2 POC ABG pO2 Sodium Potassium Chloride Carbon Dioxide BUN Creatinine Glucose POC Glucose 117 H 119 H 150 H Lactic Acid Calcium Phosphorus Magnesium Direct Bilirubin ALT Alkaline Phosphatase Troponin T C-Reactive Protein Total Protein Albumin Triglycerides Cholesterol LDL Cholesterol Direct HDL Cholesterol Urine WBC (Auto) Urine Creatinine Urine Total Protein Vancomycin Trough Rheumatoid Factor Complement C4 Miscellaneous Test Crossmatch 09/26/16 09/26/16 09/26/16 04:25 04:25 04:25 WBC RBC 2.65 L Hgb 7.4 L Hct 21.6 L MCV MCH MCHC RDW 22.5 H Plt Count Lymph % (Auto) [place] % (Auto) Lymph # [place] # Baso # Seg Neutrophils % Seg Neuts % (Manual) Lymphocytes % (Manual) 6.0 L Monocytes % (Manual) Eosinophils % (Manual) 11.0 H Basophils % (Manual) Nucleated RBC % Seg Neutrophils # Seg Neutrophils # Man Lymphocytes # (Manual) 0.4 L Monocytes # (Manual) Eosinophils # (Manual) 0.6 H PT INR Fibrinogen dRVVT Confirm Interp Factor V Activity POC ABG pH POC ABG pCO2 POC ABG pO2 Sodium Potassium Chloride 97.0 L Carbon Dioxide 19 L BUN 43 H Creatinine 2.6 H Glucose 130 H POC Glucose Lactic Acid 4.40 H* Calcium 6.7 L Phosphorus Magnesium Direct Bilirubin ALT Alkaline Phosphatase Troponin T C-Reactive Protein Total Protein Albumin Triglycerides Cholesterol LDL Cholesterol Direct HDL Cholesterol Urine WBC (Auto) Urine Creatinine Urine Total Protein Vancomycin Trough Rheumatoid Factor Complement C4 Miscellaneous Test Crossmatch 09/26/16 09/26/16 09/26/16 05:20 11:44 12:12 WBC RBC Hgb Hct MCV MCH MCHC RDW Plt Count Lymph % (Auto) [place] % (Auto) Lymph # [place] # Baso # Seg Neutrophils % Seg Neuts % (Manual) Lymphocytes % (Manual) Monocytes % (Manual) Eosinophils % (Manual) Basophils % (Manual) Nucleated RBC % Seg Neutrophils # Seg Neutrophils # Man Lymphocytes # (Manual) Monocytes # (Manual) Eosinophils # (Manual) PT INR Fibrinogen dRVVT Confirm Interp Factor V Activity POC ABG pH POC ABG pCO2 27.0 L POC ABG pO2 69 L Sodium Potassium Chloride Carbon Dioxide BUN Creatinine Glucose POC Glucose 121 H 128 H Lactic Acid Calcium Phosphorus Magnesium Direct Bilirubin ALT Alkaline Phosphatase Troponin T C-Reactive Protein Total Protein Albumin Triglycerides Cholesterol LDL Cholesterol Direct HDL Cholesterol Urine WBC (Auto) Urine Creatinine Urine Total Protein Vancomycin Trough Rheumatoid Factor Complement C4 Miscellaneous Test Crossmatch 09/26/16 09/26/16 09/27/16 18:31 23:40 08:20 WBC RBC Hgb Hct MCV MCH MCHC RDW Plt Count Lymph % (Auto) [place] % (Auto) Lymph # [place] # Baso # Seg Neutrophils % Seg Neuts % (Manual) Lymphocytes % (Manual) Monocytes % (Manual) Eosinophils % (Manual) Basophils % (Manual) Nucleated RBC % Seg Neutrophils # Seg Neutrophils # Man Lymphocytes # (Manual) Monocytes # (Manual) Eosinophils # (Manual) PT INR Fibrinogen dRVVT Confirm Interp Factor V Activity POC ABG pH POC ABG pCO2 POC ABG pO2 Sodium Potassium Chloride Carbon Dioxide BUN Creatinine Glucose POC Glucose 120 H 133 H Lactic Acid 4.10 H* Calcium Phosphorus Magnesium Direct Bilirubin ALT Alkaline Phosphatase Troponin T C-Reactive Protein Total Protein Albumin Triglycerides Cholesterol LDL Cholesterol Direct HDL Cholesterol Urine WBC (Auto) Urine Creatinine Urine Total Protein Vancomycin Trough Rheumatoid Factor Complement C4 Miscellaneous Test Crossmatch 09/27/16 09/27/16 09/27/16 11:23 15:00 18:15 WBC RBC Hgb Hct MCV MCH MCHC RDW Plt Count Lymph % (Auto) [place] % (Auto) Lymph # [place] # Baso # Seg Neutrophils % Seg Neuts % (Manual) Lymphocytes % (Manual) Monocytes % (Manual) Eosinophils % (Manual) Basophils % (Manual) Nucleated RBC % Seg Neutrophils # Seg Neutrophils # Man Lymphocytes # (Manual) Monocytes # (Manual) Eosinophils # (Manual) PT INR Fibrinogen dRVVT Confirm Interp Factor V Activity POC ABG pH 7.459 H POC ABG pCO2 27.1 L POC ABG pO2 140 H Sodium Potassium Chloride Carbon Dioxide BUN Creatinine Glucose POC Glucose 114 H 127 H Lactic Acid Calcium Phosphorus Magnesium Direct Bilirubin ALT Alkaline Phosphatase Troponin T C-Reactive Protein Total Protein Albumin Triglycerides Cholesterol LDL Cholesterol Direct HDL Cholesterol Urine WBC (Auto) Urine Creatinine Urine Total Protein Vancomycin Trough Rheumatoid Factor Complement C4 Miscellaneous Test Crossmatch 09/27/16 09/27/16 09/28/16 Unknown Unknown 03:45 WBC RBC 2.49 L Hgb 6.8 L Hct 20.7 L MCV MCH 27 L MCHC RDW 22.1 H Plt Count Lymph % (Auto) [place] % (Auto) Lymph # [place] # Baso # Seg Neutrophils % Seg Neuts % (Manual) 32.0 L Lymphocytes % (Manual) 12.0 L Monocytes % (Manual) 11.0 H Eosinophils % (Manual) 10.0 H Basophils % (Manual) Nucleated RBC % Seg Neutrophils # Seg Neutrophils # Man Lymphocytes # (Manual) 1.0 L Monocytes # (Manual) 0.9 H Eosinophils # (Manual) 0.8 H PT INR Fibrinogen dRVVT Confirm Interp Factor V Activity POC ABG pH POC ABG pCO2 POC ABG pO2 Sodium 135 L 135 L Potassium 3.5 L Chloride 93.6 L 94.4 L Carbon Dioxide 17 L 21 L BUN 45 H 28 H Creatinine 3.3 H 2.5 H Glucose 106 H POC Glucose Lactic Acid Calcium 7.3 L 7.1 L Phosphorus Magnesium Direct Bilirubin ALT Alkaline Phosphatase Troponin T C-Reactive Protein Total Protein Albumin Triglycerides Cholesterol LDL Cholesterol Direct HDL Cholesterol Urine WBC (Auto) Urine Creatinine Urine Total Protein Vancomycin Trough Rheumatoid Factor Complement C4 Miscellaneous Test Crossmatch 09/28/16 09/28/16 09/28/16 03:45 07:25 11:58 WBC 13.3 H RBC 3.01 L Hgb 8.4 L Hct 25.0 L MCV MCH MCHC RDW 20.5 H Plt Count 128 L Lymph % (Auto) [place] % (Auto) Lymph # [place] # Baso # Seg Neutrophils % Seg Neuts % (Manual) Lymphocytes % (Manual) 7.0 L Monocytes % (Manual) Eosinophils % (Manual) 6.0 H Basophils % (Manual) Nucleated RBC % Seg Neutrophils # Seg Neutrophils # Man Lymphocytes # (Manual) 0.9 L Monocytes # (Manual) Eosinophils # (Manual) 0.8 H PT INR Fibrinogen dRVVT Confirm Interp Factor V Activity POC ABG pH POC ABG pCO2 POC ABG pO2 Sodium Potassium Chloride Carbon Dioxide BUN Creatinine Glucose POC Glucose 121 H Lactic Acid 4.50 H* Calcium Phosphorus Magnesium Direct Bilirubin ALT Alkaline Phosphatase Troponin T C-Reactive Protein Total Protein Albumin Triglycerides Cholesterol LDL Cholesterol Direct HDL Cholesterol Urine WBC (Auto) Urine Creatinine Urine Total Protein Vancomycin Trough Rheumatoid Factor Complement C4 Miscellaneous Test Crossmatch 09/29/16 09/29/16 09/29/16 06:45 06:45 06:45 WBC 14.9 H RBC 2.74 L Hgb 7.6 L Hct 23.2 L MCV MCH MCHC RDW 20.5 H Plt Count 81 L Lymph % (Auto) [place] % (Auto) Lymph # [place] # Baso # Seg Neutrophils % Seg Neuts % (Manual) 81.0 H Lymphocytes % (Manual) 4.0 L Monocytes % (Manual) Eosinophils % (Manual) Basophils % (Manual) Nucleated RBC % Seg Neutrophils # Seg Neutrophils # Man 12.1 H Lymphocytes # (Manual) 0.6 L Monocytes # (Manual) Eosinophils # (Manual) PT INR Fibrinogen dRVVT Confirm Interp Factor V Activity POC ABG pH POC ABG pCO2 POC ABG pO2 Sodium 133 L Potassium 3.4 L Chloride 92.5 L Carbon Dioxide 21 L BUN 33 H Creatinine 3.0 H Glucose POC Glucose Lactic Acid Calcium 6.6 L Phosphorus Magnesium 1.40 L Direct Bilirubin 0.9 H ALT Alkaline Phosphatase Troponin T C-Reactive Protein Total Protein 4.3 L Albumin 1.3 L Triglycerides Cholesterol LDL Cholesterol Direct HDL Cholesterol Urine WBC (Auto) Urine Creatinine Urine Total Protein Vancomycin Trough Rheumatoid Factor Complement C4 Miscellaneous Test Crossmatch 09/29/16 09/29/16 09/30/16 17:52 20:12 00:07 WBC RBC Hgb Hct MCV MCH MCHC RDW Plt Count Lymph % (Auto) [place] % (Auto) Lymph # [place] # Baso # Seg Neutrophils % Seg Neuts % (Manual) Lymphocytes % (Manual) Monocytes % (Manual) Eosinophils % (Manual) Basophils % (Manual) Nucleated RBC % Seg Neutrophils # Seg Neutrophils # Man Lymphocytes # (Manual) Monocytes # (Manual) Eosinophils # (Manual) PT INR Fibrinogen dRVVT Confirm Interp Factor V Activity POC ABG pH POC ABG pCO2 POC ABG pO2 Sodium Potassium Chloride Carbon Dioxide BUN Creatinine Glucose POC Glucose 50 L 51 L Lactic Acid Calcium Phosphorus Magnesium Direct Bilirubin ALT Alkaline Phosphatase Troponin T 0.204 H* C-Reactive Protein Total Protein Albumin Triglycerides Cholesterol 31 L LDL Cholesterol Direct 4 L HDL Cholesterol 3 L Urine WBC (Auto) Urine Creatinine Urine Total Protein Vancomycin Trough Rheumatoid Factor Complement C4 Miscellaneous Test Crossmatch 09/30/16 09/30/16 09/30/16 01:30 05:15 06:10 WBC RBC Hgb Hct MCV MCH MCHC RDW Plt Count Lymph % (Auto) [place] % (Auto) Lymph # [place] # Baso # Seg Neutrophils % Seg Neuts % (Manual) Lymphocytes % (Manual) Monocytes % (Manual) Eosinophils % (Manual) Basophils % (Manual) Nucleated RBC % Seg Neutrophils # Seg Neutrophils # Man Lymphocytes # (Manual) Monocytes # (Manual) Eosinophils # (Manual) PT INR Fibrinogen dRVVT Confirm Interp Factor V Activity POC ABG pH POC ABG pCO2 POC ABG pO2 Sodium 133 L Potassium 3.2 L Chloride 93.2 L Carbon Dioxide 19 L BUN 36 H Creatinine 3.2 H Glucose 104 H POC Glucose 167 H 146 H Lactic Acid Calcium 6.4 L Phosphorus Magnesium 1.60 L Direct Bilirubin ALT Alkaline Phosphatase Troponin T C-Reactive Protein Total Protein Albumin Triglycerides Cholesterol LDL Cholesterol Direct HDL Cholesterol Urine WBC (Auto) Urine Creatinine Urine Total Protein Vancomycin Trough Rheumatoid Factor Complement C4 Miscellaneous Test Crossmatch 09/30/16 09/30/16 09/30/16 11:26 13:39 18:38 WBC RBC Hgb Hct MCV MCH MCHC RDW Plt Count Lymph % (Auto) [place] % (Auto) Lymph # [place] # Baso # Seg Neutrophils % Seg Neuts % (Manual) Lymphocytes % (Manual) Monocytes % (Manual) Eosinophils % (Manual) Basophils % (Manual) Nucleated RBC % Seg Neutrophils # Seg Neutrophils # Man Lymphocytes # (Manual) Monocytes # (Manual) Eosinophils # (Manual) PT INR Fibrinogen dRVVT Confirm Interp Factor V Activity POC ABG pH 7.479 H POC ABG pCO2 29.8 L POC ABG pO2 117 H Sodium Potassium Chloride Carbon Dioxide BUN Creatinine Glucose POC Glucose 140 H 122 H Lactic Acid Calcium Phosphorus Magnesium Direct Bilirubin ALT Alkaline Phosphatase Troponin T C-Reactive Protein Total Protein Albumin Triglycerides Cholesterol LDL Cholesterol Direct HDL Cholesterol Urine WBC (Auto) Urine Creatinine Urine Total Protein Vancomycin Trough Rheumatoid Factor Complement C4 Miscellaneous Test Crossmatch 10/01/16 10/01/16 10/01/16 06:00 06:00 12:37 WBC 12.6 H RBC 2.75 L Hgb 7.3 L Hct 23.3 L MCV MCH 27 L MCHC RDW 20.6 H Plt Count 72 L Lymph % (Auto) [place] % (Auto) Lymph # [place] # Baso # Seg Neutrophils % Seg Neuts % (Manual) 31.0 L Lymphocytes % (Manual) 8.0 L Monocytes % (Manual) Eosinophils % (Manual) Basophils % (Manual) Nucleated RBC % 3.0 H Seg Neutrophils # Seg Neutrophils # Man Lymphocytes # (Manual) 1.0 L Monocytes # (Manual) Eosinophils # (Manual) PT INR Fibrinogen dRVVT Confirm Interp Factor V Activity POC ABG pH POC ABG pCO2 POC ABG pO2 Sodium 127 L Potassium Chloride 86.8 L Carbon Dioxide 20 L BUN 42 H Creatinine 3.5 H Glucose POC Glucose 65 L Lactic Acid Calcium 7.0 L Phosphorus Magnesium Direct Bilirubin ALT Alkaline Phosphatase Troponin T C-Reactive Protein Total Protein Albumin Triglycerides Cholesterol LDL Cholesterol Direct HDL Cholesterol Urine WBC (Auto) Urine Creatinine Urine Total Protein Vancomycin Trough Rheumatoid Factor Complement C4 Miscellaneous Test Crossmatch 10/01/16 10/01/16 10/02/16 17:39 23:32 00:59 WBC RBC Hgb Hct MCV MCH MCHC RDW Plt Count Lymph % (Auto) [place] % (Auto) Lymph # [place] # Baso # Seg Neutrophils % Seg Neuts % (Manual) Lymphocytes % (Manual) Monocytes % (Manual) Eosinophils % (Manual) Basophils % (Manual) Nucleated RBC % Seg Neutrophils # Seg Neutrophils # Man Lymphocytes # (Manual) Monocytes # (Manual) Eosinophils # (Manual) PT INR Fibrinogen dRVVT Confirm Interp Factor V Activity POC ABG pH POC ABG pCO2 POC ABG pO2 Sodium Potassium Chloride Carbon Dioxide BUN Creatinine Glucose POC Glucose 107 H 52 L 145 H Lactic Acid Calcium Phosphorus Magnesium Direct Bilirubin ALT Alkaline Phosphatase Troponin T C-Reactive Protein Total Protein Albumin Triglycerides Cholesterol LDL Cholesterol Direct HDL Cholesterol Urine WBC (Auto) Urine Creatinine Urine Total Protein Vancomycin Trough Rheumatoid Factor Complement C4 Miscellaneous Test Crossmatch 10/02/16 10/02/16 10/02/16 10:30 10:50 10:50 WBC 14.7 H RBC 2.76 L Hgb 7.4 L Hct 23.6 L MCV MCH 27 L MCHC RDW 20.2 H Plt Count 79 L Lymph % (Auto) [place] % (Auto) Lymph # [place] # Baso # Seg Neutrophils % Seg Neuts % (Manual) 86.0 H Lymphocytes % (Manual) 6.0 L Monocytes % (Manual) Eosinophils % (Manual) Basophils % (Manual) Nucleated RBC % Seg Neutrophils # Seg Neutrophils # Man 12.6 H Lymphocytes # (Manual) 0.9 L Monocytes # (Manual) Eosinophils # (Manual) PT INR Fibrinogen dRVVT Confirm Interp Factor V Activity POC ABG pH 7.486 H POC ABG pCO2 30.1 L POC ABG pO2 108 H Sodium 131 L Potassium 3.4 L Chloride 89.9 L Carbon Dioxide BUN 26 H Creatinine 2.6 H Glucose POC Glucose Lactic Acid Calcium 7.0 L Phosphorus Magnesium Direct Bilirubin ALT Alkaline Phosphatase Troponin T C-Reactive Protein Total Protein Albumin Triglycerides Cholesterol LDL Cholesterol Direct HDL Cholesterol Urine WBC (Auto) Urine Creatinine Urine Total Protein Vancomycin Trough Rheumatoid Factor Complement C4 Miscellaneous Test Crossmatch 10/02/16 10/03/16 10/03/16 23:45 00:45 05:10 WBC 12.9 H RBC 2.77 L Hgb 7.6 L Hct 23.7 L MCV MCH 27 L MCHC RDW 19.7 H Plt Count 89 L Lymph % (Auto) [place] % (Auto) Lymph # [place] # Baso # Seg Neutrophils % Seg Neuts % (Manual) Lymphocytes % (Manual) 8.0 L Monocytes % (Manual) Eosinophils % (Manual) Basophils % (Manual) Nucleated RBC % Seg Neutrophils # 11.9 H Seg Neutrophils # Man Lymphocytes # (Manual) 1.0 L Monocytes # (Manual) Eosinophils # (Manual) PT INR Fibrinogen dRVVT Confirm Interp Factor V Activity POC ABG pH POC ABG pCO2 POC ABG pO2 Sodium Potassium Chloride Carbon Dioxide BUN Creatinine Glucose POC Glucose 55 L 199 H Lactic Acid Calcium Phosphorus Magnesium Direct Bilirubin ALT Alkaline Phosphatase Troponin T C-Reactive Protein Total Protein Albumin Triglycerides Cholesterol LDL Cholesterol Direct HDL Cholesterol Urine WBC (Auto) Urine Creatinine Urine Total Protein Vancomycin Trough Rheumatoid Factor Complement C4 Miscellaneous Test Crossmatch 10/03/16 10/03/16 10/03/16 05:10 12:14 13:18 WBC RBC Hgb Hct MCV MCH MCHC RDW Plt Count Lymph % (Auto) [place] % (Auto) Lymph # [place] # Baso # Seg Neutrophils % Seg Neuts % (Manual) Lymphocytes % (Manual) Monocytes % (Manual) Eosinophils % (Manual) Basophils % (Manual) Nucleated RBC % Seg Neutrophils # Seg Neutrophils # Man Lymphocytes # (Manual) Monocytes # (Manual) Eosinophils # (Manual) PT INR Fibrinogen dRVVT Confirm Interp Factor V Activity POC ABG pH POC ABG pCO2 POC ABG pO2 Sodium 129 L Potassium 3.3 L Chloride 88.8 L Carbon Dioxide 20 L BUN 29 H Creatinine 2.8 H Glucose POC Glucose 68 L 127 H Lactic Acid Calcium 7.2 L Phosphorus Magnesium Direct Bilirubin ALT Alkaline Phosphatase Troponin T C-Reactive Protein Total Protein Albumin Triglycerides Cholesterol LDL Cholesterol Direct HDL Cholesterol Urine WBC (Auto) Urine Creatinine Urine Total Protein Vancomycin Trough Rheumatoid Factor Complement C4 Miscellaneous Test Crossmatch 10/03/16 10/03/16 10/03/16 14:42 18:21 19:09 WBC RBC Hgb Hct MCV MCH MCHC RDW Plt Count Lymph % (Auto) [place] % (Auto) Lymph # [place] # Baso # Seg Neutrophils % Seg Neuts % (Manual) Lymphocytes % (Manual) Monocytes % (Manual) Eosinophils % (Manual) Basophils % (Manual) Nucleated RBC % Seg Neutrophils # Seg Neutrophils # Man Lymphocytes # (Manual) Monocytes # (Manual) Eosinophils # (Manual) PT INR Fibrinogen dRVVT Confirm Interp Factor V Activity POC ABG pH 7.499 H POC ABG pCO2 28.4 L POC ABG pO2 44 L Sodium Potassium Chloride Carbon Dioxide BUN Creatinine Glucose POC Glucose 64 L 205 H Lactic Acid Calcium Phosphorus Magnesium Direct Bilirubin ALT Alkaline Phosphatase Troponin T C-Reactive Protein Total Protein Albumin Triglycerides Cholesterol LDL Cholesterol Direct HDL Cholesterol Urine WBC (Auto) Urine Creatinine Urine Total Protein Vancomycin Trough Rheumatoid Factor Complement C4 Miscellaneous Test Crossmatch 10/03/16 10/04/16 10/04/16 23:33 04:18 06:30 WBC RBC 2.54 L Hgb 7.1 L Hct 21.7 L MCV MCH MCHC RDW 19.5 H Plt Count 76 L Lymph % (Auto) [place] % (Auto) Lymph # [place] # Baso # Seg Neutrophils % Seg Neuts % (Manual) 88.0 H Lymphocytes % (Manual) 6.0 L Monocytes % (Manual) Eosinophils % (Manual) Basophils % (Manual) Nucleated RBC % Seg Neutrophils # Seg Neutrophils # Man 8.8 H Lymphocytes # (Manual) 0.6 L Monocytes # (Manual) Eosinophils # (Manual) PT INR Fibrinogen dRVVT Confirm Interp Factor V Activity POC ABG pH 7.461 H POC ABG pCO2 33.6 L POC ABG pO2 211 H Sodium Potassium Chloride Carbon Dioxide BUN Creatinine Glucose POC Glucose 136 H Lactic Acid Calcium Phosphorus Magnesium Direct Bilirubin ALT Alkaline Phosphatase Troponin T C-Reactive Protein Total Protein Albumin Triglycerides Cholesterol LDL Cholesterol Direct HDL Cholesterol Urine WBC (Auto) Urine Creatinine Urine Total Protein Vancomycin Trough Rheumatoid Factor Complement C4 Miscellaneous Test Crossmatch 10/04/16 10/04/16 10/04/16 06:30 11:45 17:54 WBC RBC Hgb Hct MCV MCH MCHC RDW Plt Count Lymph % (Auto) [place] % (Auto) Lymph # [place] # Baso # Seg Neutrophils % Seg Neuts % (Manual) Lymphocytes % (Manual) Monocytes % (Manual) Eosinophils % (Manual) Basophils % (Manual) Nucleated RBC % Seg Neutrophils # Seg Neutrophils # Man Lymphocytes # (Manual) Monocytes # (Manual) Eosinophils # (Manual) PT INR Fibrinogen dRVVT Confirm Interp Factor V Activity POC ABG pH POC ABG pCO2 POC ABG pO2 Sodium 128 L Potassium Chloride 87.4 L Carbon Dioxide 20 L BUN 34 H Creatinine 2.9 H Glucose 127 H POC Glucose 158 H 160 H Lactic Acid Calcium 7.4 L Phosphorus Magnesium Direct Bilirubin ALT Alkaline Phosphatase Troponin T C-Reactive Protein Total Protein Albumin Triglycerides Cholesterol LDL Cholesterol Direct HDL Cholesterol Urine WBC (Auto) Urine Creatinine Urine Total Protein Vancomycin Trough Rheumatoid Factor Complement C4 Miscellaneous Test Crossmatch 10/04/16 10/05/16 10/05/16 23:25 04:30 05:00 WBC RBC 2.64 L Hgb 7.5 L Hct 22.6 L MCV MCH MCHC RDW 19.3 H Plt Count 80 L Lymph % (Auto) [place] % (Auto) Lymph # [place] # Baso # Seg Neutrophils % Seg Neuts % (Manual) Lymphocytes % (Manual) 12.0 L Monocytes % (Manual) Eosinophils % (Manual) Basophils % (Manual) Nucleated RBC % Seg Neutrophils # Seg Neutrophils # Man Lymphocytes # (Manual) Monocytes # (Manual) Eosinophils # (Manual) PT INR Fibrinogen dRVVT Confirm Interp Factor V Activity POC ABG pH 7.475 H POC ABG pCO2 33.3 L POC ABG pO2 140 H Sodium Potassium Chloride Carbon Dioxide BUN Creatinine Glucose POC Glucose 141 H Lactic Acid Calcium Phosphorus Magnesium Direct Bilirubin ALT Alkaline Phosphatase Troponin T C-Reactive Protein Total Protein Albumin Triglycerides Cholesterol LDL Cholesterol Direct HDL Cholesterol Urine WBC (Auto) Urine Creatinine Urine Total Protein Vancomycin Trough Rheumatoid Factor Complement C4 Miscellaneous Test Crossmatch 10/05/16 10/05/16 10/05/16 05:00 05:09 12:58 WBC RBC Hgb Hct MCV MCH MCHC RDW Plt Count Lymph % (Auto) [place] % (Auto) Lymph # [place] # Baso # Seg Neutrophils % Seg Neuts % (Manual) Lymphocytes % (Manual) Monocytes % (Manual) Eosinophils % (Manual) Basophils % (Manual) Nucleated RBC % Seg Neutrophils # Seg Neutrophils # Man Lymphocytes # (Manual) Monocytes # (Manual) Eosinophils # (Manual) PT INR Fibrinogen dRVVT Confirm Interp Factor V Activity POC ABG pH POC ABG pCO2 POC ABG pO2 Sodium 131 L Potassium Chloride 94.0 L Carbon Dioxide 20 L BUN 22 H Creatinine 2.0 H Glucose 123 H POC Glucose 166 H 179 H Lactic Acid Calcium 7.7 L Phosphorus 2.20 L D Magnesium Direct Bilirubin ALT Alkaline Phosphatase Troponin T C-Reactive Protein Total Protein Albumin Triglycerides Cholesterol LDL Cholesterol Direct HDL Cholesterol Urine WBC (Auto) Urine Creatinine Urine Total Protein Vancomycin Trough Rheumatoid Factor Complement C4 Miscellaneous Test Crossmatch 10/05/16 10/05/16 10/05/16 15:50 18:53 23:12 WBC RBC Hgb Hct MCV MCH MCHC RDW Plt Count Lymph % (Auto) [place] % (Auto) Lymph # [place] # Baso # Seg Neutrophils % Seg Neuts % (Manual) Lymphocytes % (Manual) Monocytes % (Manual) Eosinophils % (Manual) Basophils % (Manual) Nucleated RBC % Seg Neutrophils # Seg Neutrophils # Man Lymphocytes # (Manual) Monocytes # (Manual) Eosinophils # (Manual) PT INR Fibrinogen dRVVT Confirm Interp Factor V Activity POC ABG pH POC ABG pCO2 POC ABG pO2 Sodium Potassium Chloride Carbon Dioxide BUN Creatinine Glucose POC Glucose 150 H 164 H Lactic Acid Calcium Phosphorus Magnesium Direct Bilirubin ALT Alkaline Phosphatase Troponin T C-Reactive Protein Total Protein Albumin Triglycerides Cholesterol LDL Cholesterol Direct HDL Cholesterol Urine WBC (Auto) Urine Creatinine Urine Total Protein Vancomycin Trough Rheumatoid Factor Complement C4 Miscellaneous Test Crossmatch See Detail 10/06/16 10/06/16 10/06/16 03:50 03:50 04:53 WBC RBC 3.00 L Hgb 8.6 L Hct 25.8 L MCV MCH MCHC RDW 17.9 H Plt Count 65 L Lymph % (Auto) [place] % (Auto) Lymph # [place] # Baso # Seg Neutrophils % Seg Neuts % (Manual) 30.0 L Lymphocytes % (Manual) 5.0 L Monocytes % (Manual) Eosinophils % (Manual) Basophils % (Manual) Nucleated RBC % Seg Neutrophils # Seg Neutrophils # Man Lymphocytes # (Manual) 0.4 L Monocytes # (Manual) Eosinophils # (Manual) PT INR Fibrinogen dRVVT Confirm Interp Factor V Activity POC ABG pH 7.310 L POC ABG pCO2 49.0 H POC ABG pO2 Sodium 133 L Potassium Chloride 95.9 L Carbon Dioxide BUN 26 H Creatinine 2.0 H Glucose 116 H POC Glucose Lactic Acid Calcium 7.8 L Phosphorus Magnesium Direct Bilirubin ALT Alkaline Phosphatase Troponin T C-Reactive Protein Total Protein Albumin Triglycerides Cholesterol LDL Cholesterol Direct HDL Cholesterol Urine WBC (Auto) Urine Creatinine Urine Total Protein Vancomycin Trough Rheumatoid Factor Complement C4 Miscellaneous Test Crossmatch 10/06/16 10/06/16 10/06/16 05:23 11:52 18:34 WBC RBC Hgb Hct MCV MCH MCHC RDW Plt Count Lymph % (Auto) [place] % (Auto) Lymph # [place] # Baso # Seg Neutrophils % Seg Neuts % (Manual) Lymphocytes % (Manual) Monocytes % (Manual) Eosinophils % (Manual) Basophils % (Manual) Nucleated RBC % Seg Neutrophils # Seg Neutrophils # Man Lymphocytes # (Manual) Monocytes # (Manual) Eosinophils # (Manual) PT INR Fibrinogen dRVVT Confirm Interp Factor V Activity POC ABG pH POC ABG pCO2 POC ABG pO2 Sodium Potassium Chloride Carbon Dioxide BUN Creatinine Glucose POC Glucose 126 H 116 H 129 H Lactic Acid Calcium Phosphorus Magnesium Direct Bilirubin ALT Alkaline Phosphatase Troponin T C-Reactive Protein Total Protein Albumin Triglycerides Cholesterol LDL Cholesterol Direct HDL Cholesterol Urine WBC (Auto) Urine Creatinine Urine Total Protein Vancomycin Trough Rheumatoid Factor Complement C4 Miscellaneous Test Crossmatch 10/07/16 10/07/16 10/07/16 03:45 05:00 10:00 WBC 17.0 H RBC 2.68 L Hgb 7.3 L Hct 25.3 L MCV MCH 27 L MCHC 29 L RDW 19.6 H Plt Count 74 L Lymph % (Auto) [place] % (Auto) Lymph # [place] # Baso # Seg Neutrophils % Seg Neuts % (Manual) Lymphocytes % (Manual) 12.0 L Monocytes % (Manual) Eosinophils % (Manual) Basophils % (Manual) Nucleated RBC % 4.0 H Seg Neutrophils # Seg Neutrophils # Man 10.7 H Lymphocytes # (Manual) Monocytes # (Manual) Eosinophils # (Manual) PT INR Fibrinogen dRVVT Confirm Interp Factor V Activity POC ABG pH POC ABG pCO2 POC ABG pO2 Sodium 130 L Potassium 3.2 L Chloride 93.9 L Carbon Dioxide 20 L BUN 44 H Creatinine 2.7 H Glucose 129 H POC Glucose Lactic Acid Calcium 7.4 L Phosphorus Magnesium Direct Bilirubin ALT 6 L Alkaline Phosphatase 195 H Troponin T C-Reactive Protein Total Protein 4.9 L Albumin 1.0 L Triglycerides Cholesterol LDL Cholesterol Direct HDL Cholesterol Urine WBC (Auto) Urine Creatinine Urine Total Protein Vancomycin Trough Rheumatoid Factor Complement C4 Miscellaneous Test Flexitest 1 H Crossmatch 10/07/16 10/07/16 10/07/16 10:00 11:24 18:10 WBC RBC Hgb Hct MCV MCH MCHC RDW Plt Count Lymph % (Auto) [place] % (Auto) Lymph # [place] # Baso # Seg Neutrophils % Seg Neuts % (Manual) Lymphocytes % (Manual) Monocytes % (Manual) Eosinophils % (Manual) Basophils % (Manual) Nucleated RBC % Seg Neutrophils # Seg Neutrophils # Man Lymphocytes # (Manual) Monocytes # (Manual) Eosinophils # (Manual) PT INR Fibrinogen dRVVT Confirm Interp Factor V Activity POC ABG pH POC ABG pCO2 POC ABG pO2 Sodium Potassium Chloride Carbon Dioxide BUN Creatinine Glucose POC Glucose 116 H 130 H Lactic Acid Calcium Phosphorus Magnesium Direct Bilirubin ALT Alkaline Phosphatase Troponin T C-Reactive Protein 19.40 H Total Protein Albumin Triglycerides Cholesterol LDL Cholesterol Direct HDL Cholesterol Urine WBC (Auto) Urine Creatinine Urine Total Protein Vancomycin Trough Rheumatoid Factor Complement C4 Miscellaneous Test Crossmatch 10/07/16 10/08/16 10/08/16 18:30 00:00 04:00 WBC RBC Hgb Hct MCV MCH MCHC RDW Plt Count Lymph % (Auto) [place] % (Auto) Lymph # [place] # Baso # Seg Neutrophils % Seg Neuts % (Manual) Lymphocytes % (Manual) Monocytes % (Manual) Eosinophils % (Manual) Basophils % (Manual) Nucleated RBC % Seg Neutrophils # Seg Neutrophils # Man Lymphocytes # (Manual) Monocytes # (Manual) Eosinophils # (Manual) PT INR Fibrinogen dRVVT Confirm Interp Factor V Activity POC ABG pH POC ABG pCO2 POC ABG pO2 Sodium 132 L Potassium 3.3 L Chloride 93.6 L Carbon Dioxide 17 L BUN 59 H Creatinine 2.7 H Glucose 121 H POC Glucose 122 H Lactic Acid Calcium 7.6 L Phosphorus Magnesium Direct Bilirubin ALT Alkaline Phosphatase Troponin T C-Reactive Protein Total Protein Albumin Triglycerides Cholesterol LDL Cholesterol Direct HDL Cholesterol Urine WBC (Auto) > 182.0 H Urine Creatinine Urine Total Protein Vancomycin Trough Rheumatoid Factor Complement C4 Miscellaneous Test Crossmatch 10/08/16 10/08/16 10/08/16 04:30 05:30 11:51 WBC RBC 5.15 H Hgb 14.4 H D Hct 44.5 H D MCV MCH MCHC RDW 19.5 H Plt Count 56 L Lymph % (Auto) [place] % (Auto) Lymph # [place] # Baso # Seg Neutrophils % Seg Neuts % (Manual) 24.0 L Lymphocytes % (Manual) 8.0 L Monocytes % (Manual) Eosinophils % (Manual) Basophils % (Manual) Nucleated RBC % 9.0 H Seg Neutrophils # Seg Neutrophils # Man Lymphocytes # (Manual) 0.7 L Monocytes # (Manual) Eosinophils # (Manual) PT INR Fibrinogen dRVVT Confirm Interp Factor V Activity POC ABG pH POC ABG pCO2 POC ABG pO2 Sodium Potassium Chloride Carbon Dioxide BUN Creatinine Glucose POC Glucose 125 H 150 H Lactic Acid Calcium Phosphorus Magnesium Direct Bilirubin ALT Alkaline Phosphatase Troponin T C-Reactive Protein Total Protein Albumin Triglycerides Cholesterol LDL Cholesterol Direct HDL Cholesterol Urine WBC (Auto) Urine Creatinine Urine Total Protein Vancomycin Trough Rheumatoid Factor Complement C4 Miscellaneous Test Crossmatch 10/08/16 10/08/16 10/08/16 12:49 17:07 19:30 WBC RBC Hgb 7.1 L D Hct 22.4 L D MCV MCH MCHC RDW Plt Count Lymph % (Auto) [place] % (Auto) Lymph # [place] # Baso # Seg Neutrophils % Seg Neuts % (Manual) Lymphocytes % (Manual) Monocytes % (Manual) Eosinophils % (Manual) Basophils % (Manual) Nucleated RBC % Seg Neutrophils # Seg Neutrophils # Man Lymphocytes # (Manual) Monocytes # (Manual) Eosinophils # (Manual) PT INR Fibrinogen dRVVT Confirm Interp Factor V Activity POC ABG pH POC ABG pCO2 28.2 L POC ABG pO2 111 H Sodium Potassium Chloride Carbon Dioxide BUN Creatinine Glucose POC Glucose 145 H Lactic Acid Calcium Phosphorus Magnesium Direct Bilirubin ALT Alkaline Phosphatase Troponin T C-Reactive Protein Total Protein Albumin Triglycerides Cholesterol LDL Cholesterol Direct HDL Cholesterol Urine WBC (Auto) Urine Creatinine Urine Total Protein Vancomycin Trough Rheumatoid Factor Complement C4 Miscellaneous Test Crossmatch 10/08/16 10/09/16 10/09/16 19:30 03:45 03:45 WBC 12.6 H RBC 2.36 L Hgb 6.7 L Hct 21.1 L MCV MCH MCHC RDW 19.5 H Plt Count 75 L Lymph % (Auto) [place] % (Auto) Lymph # [place] # Baso # Seg Neutrophils % Seg Neuts % (Manual) Lymphocytes % (Manual) Monocytes % (Manual) 10.0 H Eosinophils % (Manual) Basophils % (Manual) Nucleated RBC % 3.0 H Seg Neutrophils # Seg Neutrophils # Man Lymphocytes # (Manual) Monocytes # (Manual) 1.3 H Eosinophils # (Manual) PT 18.0 H INR 1.41 H Fibrinogen dRVVT Confirm Interp Factor V Activity POC ABG pH POC ABG pCO2 POC ABG pO2 Sodium 135 L Potassium Chloride Carbon Dioxide 17 L BUN 81 H Creatinine 3.2 H Glucose 109 H POC Glucose Lactic Acid Calcium 7.4 L Phosphorus 4.60 H D Magnesium Direct Bilirubin ALT Alkaline Phosphatase Troponin T C-Reactive Protein Total Protein Albumin Triglycerides Cholesterol LDL Cholesterol Direct HDL Cholesterol Urine WBC (Auto) Urine Creatinine Urine Total Protein Vancomycin Trough Rheumatoid Factor Complement C4 Miscellaneous Test Crossmatch 10/09/16 10/09/16 10/09/16 03:45 05:14 07:20 WBC RBC Hgb Hct MCV MCH MCHC RDW Plt Count Lymph % (Auto) [place] % (Auto) Lymph # [place] # Baso # Seg Neutrophils % Seg Neuts % (Manual) Lymphocytes % (Manual) Monocytes % (Manual) Eosinophils % (Manual) Basophils % (Manual) Nucleated RBC % Seg Neutrophils # Seg Neutrophils # Man Lymphocytes # (Manual) Monocytes # (Manual) Eosinophils # (Manual) PT 19.0 H INR 1.51 H Fibrinogen dRVVT Confirm Interp Factor V Activity POC ABG pH POC ABG pCO2 POC ABG pO2 Sodium Potassium Chloride Carbon Dioxide BUN Creatinine Glucose POC Glucose 151 H Lactic Acid Calcium Phosphorus Magnesium Direct Bilirubin ALT Alkaline Phosphatase Troponin T C-Reactive Protein Total Protein Albumin Triglycerides Cholesterol LDL Cholesterol Direct HDL Cholesterol Urine WBC (Auto) Urine Creatinine Urine Total Protein Vancomycin Trough Rheumatoid Factor Complement C4 Miscellaneous Test Crossmatch See Detail 10/09/16 10/09/16 10/09/16 11:46 16:20 16:43 WBC RBC Hgb 7.2 L Hct 22.2 L MCV MCH MCHC RDW Plt Count Lymph % (Auto) [place] % (Auto) Lymph # [place] # Baso # Seg Neutrophils % Seg Neuts % (Manual) Lymphocytes % (Manual) Monocytes % (Manual) Eosinophils % (Manual) Basophils % (Manual) Nucleated RBC % Seg Neutrophils # Seg Neutrophils # Man Lymphocytes # (Manual) Monocytes # (Manual) Eosinophils # (Manual) PT INR Fibrinogen dRVVT Confirm Interp Factor V Activity POC ABG pH POC ABG pCO2 POC ABG pO2 Sodium Potassium Chloride Carbon Dioxide BUN Creatinine Glucose POC Glucose 133 H 141 H Lactic Acid Calcium Phosphorus Magnesium Direct Bilirubin ALT Alkaline Phosphatase Troponin T C-Reactive Protein Total Protein Albumin Triglycerides Cholesterol LDL Cholesterol Direct HDL Cholesterol Urine WBC (Auto) Urine Creatinine Urine Total Protein Vancomycin Trough Rheumatoid Factor Complement C4 Miscellaneous Test Crossmatch 10/10/16 10/10/16 10/10/16 05:00 05:00 11:19 WBC 18.5 H RBC 2.19 L Hgb 6.4 L Hct 19.6 L* MCV MCH MCHC RDW 19.3 H Plt Count 93 L Lymph % (Auto) [place] % (Auto) Lymph # [place] # Baso # Seg Neutrophils % Seg Neuts % (Manual) Lymphocytes % (Manual) 10.0 L Monocytes % (Manual) Eosinophils % (Manual) Basophils % (Manual) Nucleated RBC % 4.0 H Seg Neutrophils # Seg Neutrophils # Man 11.3 H Lymphocytes # (Manual) Monocytes # (Manual) Eosinophils # (Manual) PT INR Fibrinogen dRVVT Confirm Interp Factor V Activity POC ABG pH POC ABG pCO2 POC ABG pO2 Sodium Potassium 5.7 H D Chloride Carbon Dioxide 16 L BUN 94 H Creatinine 3.1 H Glucose 131 H POC Glucose 153 H Lactic Acid Calcium 8.2 L Phosphorus 5.10 H Magnesium 2.40 H Direct Bilirubin 0.3 H ALT < 5 L Alkaline Phosphatase 319 H Troponin T C-Reactive Protein Total Protein 5.1 L Albumin 1.0 L Triglycerides Cholesterol LDL Cholesterol Direct HDL Cholesterol Urine WBC (Auto) Urine Creatinine Urine Total Protein Vancomycin Trough Rheumatoid Factor Complement C4 Miscellaneous Test Crossmatch 10/10/16 10/10/16 10/11/16 17:50 23:30 04:15 WBC RBC Hgb Hct MCV MCH MCHC RDW Plt Count Lymph % (Auto) [place] % (Auto) Lymph # [place] # Baso # Seg Neutrophils % Seg Neuts % (Manual) Lymphocytes % (Manual) Monocytes % (Manual) Eosinophils % (Manual) Basophils % (Manual) Nucleated RBC % Seg Neutrophils # Seg Neutrophils # Man Lymphocytes # (Manual) Monocytes # (Manual) Eosinophils # (Manual) PT INR Fibrinogen dRVVT Confirm Interp Factor V Activity POC ABG pH POC ABG pCO2 POC ABG pO2 Sodium Potassium Chloride 96.4 L Carbon Dioxide 21 L BUN 57 H Creatinine 2.1 H Glucose 151 H POC Glucose 146 H 141 H Lactic Acid Calcium 8.3 L Phosphorus Magnesium Direct Bilirubin ALT Alkaline Phosphatase Troponin T C-Reactive Protein Total Protein Albumin Triglycerides Cholesterol LDL Cholesterol Direct HDL Cholesterol Urine WBC (Auto) Urine Creatinine Urine Total Protein Vancomycin Trough Rheumatoid Factor Complement C4 Miscellaneous Test Crossmatch 10/11/16 10/11/16 10/11/16 04:15 04:15 05:30 WBC 28.3 H RBC 3.12 L Hgb 9.3 L Hct 28.7 L D MCV MCH MCHC RDW 17.7 H Plt Count 128 L Lymph % (Auto) [place] % (Auto) Lymph # [place] # Baso # Seg Neutrophils % Seg Neuts % (Manual) Lymphocytes % (Manual) Monocytes % (Manual) Eosinophils % (Manual) Basophils % (Manual) Nucleated RBC % Seg Neutrophils # Seg Neutrophils # Man Lymphocytes # (Manual) Monocytes # (Manual) Eosinophils # (Manual) PT INR Fibrinogen dRVVT Confirm Interp Factor V Activity POC ABG pH POC ABG pCO2 POC ABG pO2 Sodium Potassium Chloride Carbon Dioxide BUN Creatinine Glucose POC Glucose 167 H Lactic Acid Calcium Phosphorus Magnesium Direct Bilirubin ALT Alkaline Phosphatase Troponin T C-Reactive Protein 15.80 H Total Protein Albumin Triglycerides Cholesterol LDL Cholesterol Direct HDL Cholesterol Urine WBC (Auto) Urine Creatinine Urine Total Protein Vancomycin Trough Rheumatoid Factor Complement C4 Miscellaneous Test Crossmatch 10/11/16 10/11/16 10/11/16 11:40 15:49 23:57 WBC RBC Hgb Hct MCV MCH MCHC RDW Plt Count Lymph % (Auto) [place] % (Auto) Lymph # [place] # Baso # Seg Neutrophils % Seg Neuts % (Manual) Lymphocytes % (Manual) Monocytes % (Manual) Eosinophils % (Manual) Basophils % (Manual) Nucleated RBC % Seg Neutrophils # Seg Neutrophils # Man Lymphocytes # (Manual) Monocytes # (Manual) Eosinophils # (Manual) PT INR Fibrinogen dRVVT Confirm Interp Factor V Activity POC ABG pH POC ABG pCO2 POC ABG pO2 Sodium Potassium Chloride Carbon Dioxide BUN Creatinine Glucose POC Glucose 139 H 168 H 161 H Lactic Acid Calcium Phosphorus Magnesium Direct Bilirubin ALT Alkaline Phosphatase Troponin T C-Reactive Protein Total Protein Albumin Triglycerides Cholesterol LDL Cholesterol Direct HDL Cholesterol Urine WBC (Auto) Urine Creatinine Urine Total Protein Vancomycin Trough Rheumatoid Factor Complement C4 Miscellaneous Test Crossmatch 10/12/16 10/12/16 10/12/16 04:40 04:40 05:44 WBC 22.5 H RBC 2.88 L Hgb 8.8 L Hct 26.8 L MCV MCH MCHC RDW 17.8 H Plt Count Lymph % (Auto) [place] % (Auto) Lymph # [place] # Baso # Seg Neutrophils % Seg Neuts % (Manual) Lymphocytes % (Manual) Monocytes % (Manual) Eosinophils % (Manual) Basophils % (Manual) Nucleated RBC % Seg Neutrophils # Seg Neutrophils # Man Lymphocytes # (Manual) Monocytes # (Manual) Eosinophils # (Manual) PT INR Fibrinogen dRVVT Confirm Interp Factor V Activity POC ABG pH POC ABG pCO2 POC ABG pO2 Sodium 134 L Potassium Chloride 93.0 L Carbon Dioxide BUN 74 H Creatinine 2.5 H Glucose 137 H POC Glucose 158 H Lactic Acid Calcium 8.2 L Phosphorus Magnesium Direct Bilirubin ALT Alkaline Phosphatase Troponin T C-Reactive Protein Total Protein Albumin Triglycerides Cholesterol LDL Cholesterol Direct HDL Cholesterol Urine WBC (Auto) Urine Creatinine Urine Total Protein Vancomycin Trough Rheumatoid Factor Complement C4 Miscellaneous Test Crossmatch 10/12/16 10/12/16 10/12/16 12:27 18:18 23:46 WBC RBC Hgb Hct MCV MCH MCHC RDW Plt Count Lymph % (Auto) [place] % (Auto) Lymph # [place] # Baso # Seg Neutrophils % Seg Neuts % (Manual) Lymphocytes % (Manual) Monocytes % (Manual) Eosinophils % (Manual) Basophils % (Manual) Nucleated RBC % Seg Neutrophils # Seg Neutrophils # Man Lymphocytes # (Manual) Monocytes # (Manual) Eosinophils # (Manual) PT INR Fibrinogen dRVVT Confirm Interp Factor V Activity POC ABG pH POC ABG pCO2 POC ABG pO2 Sodium Potassium Chloride Carbon Dioxide BUN Creatinine Glucose POC Glucose 153 H 140 H 150 H Lactic Acid Calcium Phosphorus Magnesium Direct Bilirubin ALT Alkaline Phosphatase Troponin T C-Reactive Protein Total Protein Albumin Triglycerides Cholesterol LDL Cholesterol Direct HDL Cholesterol Urine WBC (Auto) Urine Creatinine Urine Total Protein Vancomycin Trough Rheumatoid Factor Complement C4 Miscellaneous Test Crossmatch 10/13/16 10/13/16 10/13/16 06:22 09:20 12:29 WBC RBC Hgb Hct MCV MCH MCHC RDW Plt Count Lymph % (Auto) [place] % (Auto) Lymph # [place] # Baso # Seg Neutrophils % Seg Neuts % (Manual) Lymphocytes % (Manual) Monocytes % (Manual) Eosinophils % (Manual) Basophils % (Manual) Nucleated RBC % Seg Neutrophils # Seg Neutrophils # Man Lymphocytes # (Manual) Monocytes # (Manual) Eosinophils # (Manual) PT INR Fibrinogen dRVVT Confirm Interp Factor V Activity POC ABG pH POC ABG pCO2 POC ABG pO2 Sodium Potassium Chloride Carbon Dioxide BUN Creatinine Glucose POC Glucose 165 H 193 H Lactic Acid Calcium Phosphorus Magnesium Direct Bilirubin ALT Alkaline Phosphatase Troponin T C-Reactive Protein Total Protein Albumin Triglycerides Cholesterol LDL Cholesterol Direct HDL Cholesterol Urine WBC (Auto) Urine Creatinine Urine Total Protein Vancomycin Trough Rheumatoid Factor Complement C4 Miscellaneous Test Flexitest 1 H Crossmatch 10/13/16 10/13/16 10/13/16 18:09 Unknown Unknown WBC 23.4 H RBC 2.83 L Hgb 8.7 L Hct 26.1 L MCV MCH MCHC RDW 18.1 H Plt Count Lymph % (Auto) [place] % (Auto) Lymph # [place] # Baso # Seg Neutrophils % Seg Neuts % (Manual) Lymphocytes % (Manual) Monocytes % (Manual) Eosinophils % (Manual) Basophils % (Manual) Nucleated RBC % Seg Neutrophils # Seg Neutrophils # Man Lymphocytes # (Manual) Monocytes # (Manual) Eosinophils # (Manual) PT INR Fibrinogen dRVVT Confirm Interp Factor V Activity POC ABG pH POC ABG pCO2 POC ABG pO2 Sodium Potassium Chloride 95.8 L Carbon Dioxide BUN 82 H Creatinine 2.6 H Glucose 152 H POC Glucose 166 H Lactic Acid Calcium Phosphorus Magnesium Direct Bilirubin ALT Alkaline Phosphatase Troponin T C-Reactive Protein Total Protein Albumin Triglycerides Cholesterol LDL Cholesterol Direct HDL Cholesterol Urine WBC (Auto) Urine Creatinine Urine Total Protein Vancomycin Trough Rheumatoid Factor Complement C4 Miscellaneous Test Crossmatch 10/14/16 10/14/16 10/14/16 05:38 06:35 08:10 WBC 20.7 H RBC 2.81 L Hgb 8.4 L Hct 27.2 L MCV MCH MCHC RDW 19.4 H Plt Count Lymph % (Auto) [place] % (Auto) Lymph # [place] # Baso # Seg Neutrophils % Seg Neuts % (Manual) Lymphocytes % (Manual) Monocytes % (Manual) Eosinophils % (Manual) Basophils % (Manual) Nucleated RBC % Seg Neutrophils # Seg Neutrophils # Man Lymphocytes # (Manual) Monocytes # (Manual) Eosinophils # (Manual) PT INR Fibrinogen dRVVT Confirm Interp Factor V Activity POC ABG pH POC ABG pCO2 POC ABG pO2 Sodium Potassium Chloride Carbon Dioxide BUN 58 H Creatinine 1.9 H Glucose 169 H POC Glucose 195 H Lactic Acid Calcium Phosphorus Magnesium Direct Bilirubin ALT Alkaline Phosphatase Troponin T C-Reactive Protein Total Protein Albumin Triglycerides Cholesterol LDL Cholesterol Direct HDL Cholesterol Urine WBC (Auto) Urine Creatinine Urine Total Protein Vancomycin Trough Rheumatoid Factor Complement C4 Miscellaneous Test Crossmatch 10/14/16 10/14/16 10/14/16 11:44 17:13 23:28 WBC RBC Hgb Hct MCV MCH MCHC RDW Plt Count Lymph % (Auto) [place] % (Auto) Lymph # [place] # Baso # Seg Neutrophils % Seg Neuts % (Manual) Lymphocytes % (Manual) Monocytes % (Manual) Eosinophils % (Manual) Basophils % (Manual) Nucleated RBC % Seg Neutrophils # Seg Neutrophils # Man Lymphocytes # (Manual) Monocytes # (Manual) Eosinophils # (Manual) PT INR Fibrinogen dRVVT Confirm Interp Factor V Activity POC ABG pH POC ABG pCO2 POC ABG pO2 Sodium Potassium Chloride Carbon Dioxide BUN Creatinine Glucose POC Glucose 174 H 121 H 151 H Lactic Acid Calcium Phosphorus Magnesium Direct Bilirubin ALT Alkaline Phosphatase Troponin T C-Reactive Protein Total Protein Albumin Triglycerides Cholesterol LDL Cholesterol Direct HDL Cholesterol Urine WBC (Auto) Urine Creatinine Urine Total Protein Vancomycin Trough Rheumatoid Factor Complement C4 Miscellaneous Test Crossmatch 10/15/16 10/15/16 10/15/16 05:06 12:26 17:48 WBC RBC Hgb Hct MCV MCH MCHC RDW Plt Count Lymph % (Auto) [place] % (Auto) Lymph # [place] # Baso # Seg Neutrophils % Seg Neuts % (Manual) Lymphocytes % (Manual) Monocytes % (Manual) Eosinophils % (Manual) Basophils % (Manual) Nucleated RBC % Seg Neutrophils # Seg Neutrophils # Man Lymphocytes # (Manual) Monocytes # (Manual) Eosinophils # (Manual) PT INR Fibrinogen dRVVT Confirm Interp Factor V Activity POC ABG pH POC ABG pCO2 POC ABG pO2 Sodium Potassium Chloride Carbon Dioxide BUN Creatinine Glucose POC Glucose 151 H 149 H 153 H Lactic Acid Calcium Phosphorus Magnesium Direct Bilirubin ALT Alkaline Phosphatase Troponin T C-Reactive Protein Total Protein Albumin Triglycerides Cholesterol LDL Cholesterol Direct HDL Cholesterol Urine WBC (Auto) Urine Creatinine Urine Total Protein Vancomycin Trough Rheumatoid Factor Complement C4 Miscellaneous Test Crossmatch 10/15/16 10/15/16 10/16/16 Unknown Unknown 00:02 WBC 23.4 H RBC 2.78 L Hgb 8.5 L Hct 25.7 L MCV MCH MCHC RDW 18.7 H Plt Count Lymph % (Auto) [place] % (Auto) Lymph # [place] # Baso # Seg Neutrophils % Seg Neuts % (Manual) Lymphocytes % (Manual) Monocytes % (Manual) Eosinophils % (Manual) Basophils % (Manual) Nucleated RBC % Seg Neutrophils # Seg Neutrophils # Man Lymphocytes # (Manual) Monocytes # (Manual) Eosinophils # (Manual) PT INR Fibrinogen dRVVT Confirm Interp Factor V Activity POC ABG pH POC ABG pCO2 POC ABG pO2 Sodium Potassium Chloride Carbon Dioxide BUN 73 H Creatinine 2.3 H Glucose 120 H POC Glucose 137 H Lactic Acid Calcium Phosphorus Magnesium Direct Bilirubin ALT Alkaline Phosphatase Troponin T C-Reactive Protein Total Protein Albumin Triglycerides Cholesterol LDL Cholesterol Direct HDL Cholesterol Urine WBC (Auto) Urine Creatinine Urine Total Protein Vancomycin Trough Rheumatoid Factor Complement C4 Miscellaneous Test Crossmatch 10/16/16 10/16/16 10/16/16 05:44 06:25 06:25 WBC 22.5 H RBC 2.76 L Hgb 8.3 L Hct 25.2 L MCV MCH MCHC RDW 18.3 H Plt Count Lymph % (Auto) [place] % (Auto) Lymph # [place] # Baso # Seg Neutrophils % Seg Neuts % (Manual) Lymphocytes % (Manual) Monocytes % (Manual) Eosinophils % (Manual) Basophils % (Manual) Nucleated RBC % Seg Neutrophils # Seg Neutrophils # Man Lymphocytes # (Manual) Monocytes # (Manual) Eosinophils # (Manual) PT INR Fibrinogen dRVVT Confirm Interp Factor V Activity POC ABG pH POC ABG pCO2 POC ABG pO2 Sodium Potassium Chloride Carbon Dioxide BUN 92 H Creatinine 3.0 H Glucose 138 H POC Glucose 110 H Lactic Acid Calcium Phosphorus Magnesium Direct Bilirubin ALT Alkaline Phosphatase Troponin T C-Reactive Protein Total Protein Albumin Triglycerides Cholesterol LDL Cholesterol Direct HDL Cholesterol Urine WBC (Auto) Urine Creatinine Urine Total Protein Vancomycin Trough Rheumatoid Factor Complement C4 Miscellaneous Test Crossmatch 10/16/16 10/16/16 10/16/16 11:27 11:48 17:36 WBC RBC Hgb Hct MCV MCH MCHC RDW Plt Count Lymph % (Auto) [place] % (Auto) Lymph # [place] # Baso # Seg Neutrophils % Seg Neuts % (Manual) Lymphocytes % (Manual) Monocytes % (Manual) Eosinophils % (Manual) Basophils % (Manual) Nucleated RBC % Seg Neutrophils # Seg Neutrophils # Man Lymphocytes # (Manual) Monocytes # (Manual) Eosinophils # (Manual) PT INR Fibrinogen dRVVT Confirm Interp Factor V Activity POC ABG pH 7.582 H POC ABG pCO2 27.4 L POC ABG pO2 110 H Sodium Potassium Chloride Carbon Dioxide BUN Creatinine Glucose POC Glucose 121 H 133 H Lactic Acid Calcium Phosphorus Magnesium Direct Bilirubin ALT Alkaline Phosphatase Troponin T C-Reactive Protein Total Protein Albumin Triglycerides Cholesterol LDL Cholesterol Direct HDL Cholesterol Urine WBC (Auto) Urine Creatinine Urine Total Protein Vancomycin Trough Rheumatoid Factor Complement C4 Miscellaneous Test Crossmatch 10/16/16 10/17/16 10/17/16 20:48 04:24 04:24 WBC 21.4 H RBC 2.72 L Hgb 8.0 L Hct 25.2 L MCV MCH MCHC RDW 18.0 H Plt Count Lymph % (Auto) [place] % (Auto) Lymph # [place] # Baso # Seg Neutrophils % Seg Neuts % (Manual) Lymphocytes % (Manual) Monocytes % (Manual) Eosinophils % (Manual) Basophils % (Manual) Nucleated RBC % Seg Neutrophils # Seg Neutrophils # Man Lymphocytes # (Manual) Monocytes # (Manual) Eosinophils # (Manual) PT INR Fibrinogen dRVVT Confirm Interp Factor V Activity POC ABG pH 7.561 H POC ABG pCO2 24.4 L POC ABG pO2 77 L Sodium 148 H Potassium Chloride Carbon Dioxide BUN 104 H Creatinine 3.0 H Glucose 149 H POC Glucose Lactic Acid Calcium Phosphorus Magnesium Direct Bilirubin ALT Alkaline Phosphatase 138 H Troponin T C-Reactive Protein Total Protein 6.2 L Albumin 1.5 L Triglycerides Cholesterol LDL Cholesterol Direct HDL Cholesterol Urine WBC (Auto) Urine Creatinine Urine Total Protein Vancomycin Trough Rheumatoid Factor Complement C4 Miscellaneous Test Crossmatch 10/17/16 10/17/16 10/17/16 06:02 12:17 17:14 WBC RBC Hgb Hct MCV MCH MCHC RDW Plt Count Lymph % (Auto) [place] % (Auto) Lymph # [place] # Baso # Seg Neutrophils % Seg Neuts % (Manual) Lymphocytes % (Manual) Monocytes % (Manual) Eosinophils % (Manual) Basophils % (Manual) Nucleated RBC % Seg Neutrophils # Seg Neutrophils # Man Lymphocytes # (Manual) Monocytes # (Manual) Eosinophils # (Manual) PT INR Fibrinogen dRVVT Confirm Interp Factor V Activity POC ABG pH POC ABG pCO2 POC ABG pO2 Sodium Potassium Chloride Carbon Dioxide BUN Creatinine Glucose POC Glucose 170 H 167 H 126 H Lactic Acid Calcium Phosphorus Magnesium Direct Bilirubin ALT Alkaline Phosphatase Troponin T C-Reactive Protein Total Protein Albumin Triglycerides Cholesterol LDL Cholesterol Direct HDL Cholesterol Urine WBC (Auto) Urine Creatinine Urine Total Protein Vancomycin Trough Rheumatoid Factor Complement C4 Miscellaneous Test Crossmatch 10/17/16 10/18/16 10/18/16 23:17 04:00 04:00 WBC 20.7 H RBC 2.47 L Hgb 7.4 L Hct 22.9 L MCV MCH MCHC RDW 17.5 H Plt Count Lymph % (Auto) [place] % (Auto) Lymph # [place] # Baso # Seg Neutrophils % Seg Neuts % (Manual) Lymphocytes % (Manual) Monocytes % (Manual) Eosinophils % (Manual) Basophils % (Manual) Nucleated RBC % Seg Neutrophils # Seg Neutrophils # Man Lymphocytes # (Manual) Monocytes # (Manual) Eosinophils # (Manual) PT INR Fibrinogen dRVVT Confirm Interp Factor V Activity POC ABG pH POC ABG pCO2 POC ABG pO2 Sodium 149 H Potassium Chloride 107.9 H Carbon Dioxide 20 L BUN 117 H Creatinine 3.2 H Glucose 119 H POC Glucose 121 H Lactic Acid Calcium Phosphorus Magnesium Direct Bilirubin ALT Alkaline Phosphatase Troponin T C-Reactive Protein Total Protein Albumin Triglycerides Cholesterol LDL Cholesterol Direct HDL Cholesterol Urine WBC (Auto) Urine Creatinine Urine Total Protein Vancomycin Trough Rheumatoid Factor Complement C4 Miscellaneous Test Crossmatch 10/18/16 10/18/16 10/18/16 05:23 10:46 17:30 WBC RBC Hgb Hct MCV MCH MCHC RDW Plt Count Lymph % (Auto) [place] % (Auto) Lymph # [place] # Baso # Seg Neutrophils % Seg Neuts % (Manual) Lymphocytes % (Manual) Monocytes % (Manual) Eosinophils % (Manual) Basophils % (Manual) Nucleated RBC % Seg Neutrophils # Seg Neutrophils # Man Lymphocytes # (Manual) Monocytes # (Manual) Eosinophils # (Manual) PT INR Fibrinogen dRVVT Confirm Interp Factor V Activity POC ABG pH POC ABG pCO2 POC ABG pO2 Sodium Potassium Chloride Carbon Dioxide BUN Creatinine Glucose POC Glucose 119 H 155 H 124 H Lactic Acid Calcium Phosphorus Magnesium Direct Bilirubin ALT Alkaline Phosphatase Troponin T C-Reactive Protein Total Protein Albumin Triglycerides Cholesterol LDL Cholesterol Direct HDL Cholesterol Urine WBC (Auto) Urine Creatinine Urine Total Protein Vancomycin Trough Rheumatoid Factor Complement C4 Miscellaneous Test Crossmatch 10/19/16 10/19/16 10/19/16 04:00 04:00 05:25 WBC 17.4 H RBC 2.54 L Hgb 7.7 L Hct 23.6 L MCV MCH MCHC RDW 17.3 H Plt Count Lymph % (Auto) [place] % (Auto) Lymph # [place] # Baso # Seg Neutrophils % Seg Neuts % (Manual) Lymphocytes % (Manual) Monocytes % (Manual) Eosinophils % (Manual) Basophils % (Manual) Nucleated RBC % Seg Neutrophils # Seg Neutrophils # Man Lymphocytes # (Manual) Monocytes # (Manual) Eosinophils # (Manual) PT INR Fibrinogen dRVVT Confirm Interp Factor V Activity POC ABG pH POC ABG pCO2 POC ABG pO2 Sodium Potassium Chloride Carbon Dioxide BUN 72 H Creatinine 2.1 H Glucose 116 H POC Glucose 119 H Lactic Acid Calcium Phosphorus Magnesium Direct Bilirubin ALT Alkaline Phosphatase Troponin T C-Reactive Protein Total Protein Albumin Triglycerides Cholesterol LDL Cholesterol Direct HDL Cholesterol Urine WBC (Auto) Urine Creatinine Urine Total Protein Vancomycin Trough Rheumatoid Factor Complement C4 Miscellaneous Test Crossmatch 10/19/16 10/19/16 10/20/16 11:46 23:59 06:00 WBC RBC Hgb Hct MCV MCH MCHC RDW Plt Count Lymph % (Auto) [place] % (Auto) Lymph # [place] # Baso # Seg Neutrophils % Seg Neuts % (Manual) Lymphocytes % (Manual) Monocytes % (Manual) Eosinophils % (Manual) Basophils % (Manual) Nucleated RBC % Seg Neutrophils # Seg Neutrophils # Man Lymphocytes # (Manual) Monocytes # (Manual) Eosinophils # (Manual) PT INR Fibrinogen dRVVT Confirm Interp Factor V Activity POC ABG pH POC ABG pCO2 POC ABG pO2 Sodium Potassium Chloride Carbon Dioxide 17 L BUN 94 H Creatinine 2.7 H Glucose POC Glucose 116 H 117 H Lactic Acid Calcium Phosphorus Magnesium Direct Bilirubin ALT Alkaline Phosphatase Troponin T C-Reactive Protein Total Protein Albumin Triglycerides Cholesterol LDL Cholesterol Direct HDL Cholesterol Urine WBC (Auto) Urine Creatinine Urine Total Protein Vancomycin Trough Rheumatoid Factor Complement C4 Miscellaneous Test Crossmatch 10/20/16 10/20/16 10/20/16 06:00 11:49 16:00 WBC 19.7 H RBC 2.51 L Hgb 7.7 L Hct 23.5 L MCV MCH MCHC RDW 17.5 H Plt Count Lymph % (Auto) [place] % (Auto) Lymph # [place] # Baso # Seg Neutrophils % Seg Neuts % (Manual) Lymphocytes % (Manual) Monocytes % (Manual) Eosinophils % (Manual) Basophils % (Manual) Nucleated RBC % Seg Neutrophils # Seg Neutrophils # Man Lymphocytes # (Manual) Monocytes # (Manual) Eosinophils # (Manual) PT INR Fibrinogen dRVVT Confirm Interp Factor V Activity POC ABG pH POC ABG pCO2 POC ABG pO2 Sodium Potassium Chloride Carbon Dioxide BUN Creatinine Glucose POC Glucose 117 H Lactic Acid Calcium Phosphorus Magnesium Direct Bilirubin ALT Alkaline Phosphatase Troponin T C-Reactive Protein Total Protein Albumin Triglycerides Cholesterol LDL Cholesterol Direct HDL Cholesterol Urine WBC (Auto) Urine Creatinine Urine Total Protein Vancomycin Trough Rheumatoid Factor Complement C4 Miscellaneous Test Flexitest 1 H Crossmatch 10/20/16 10/20/16 10/21/16 18:36 23:39 04:00 WBC RBC Hgb Hct MCV MCH MCHC RDW Plt Count Lymph % (Auto) [place] % (Auto) Lymph # [place] # Baso # Seg Neutrophils % Seg Neuts % (Manual) Lymphocytes % (Manual) Monocytes % (Manual) Eosinophils % (Manual) Basophils % (Manual) Nucleated RBC % Seg Neutrophils # Seg Neutrophils # Man Lymphocytes # (Manual) Monocytes # (Manual) Eosinophils # (Manual) PT INR Fibrinogen dRVVT Confirm Interp Factor V Activity POC ABG pH POC ABG pCO2 POC ABG pO2 Sodium Potassium 5.4 H D Chloride Carbon Dioxide 15 L BUN 110 H Creatinine 3.0 H Glucose POC Glucose 127 H 114 H Lactic Acid Calcium Phosphorus Magnesium Direct Bilirubin ALT Alkaline Phosphatase Troponin T C-Reactive Protein Total Protein Albumin Triglycerides Cholesterol LDL Cholesterol Direct HDL Cholesterol Urine WBC (Auto) Urine Creatinine Urine Total Protein Vancomycin Trough Rheumatoid Factor Complement C4 Miscellaneous Test Crossmatch 10/21/16 10/21/16 10/22/16 05:54 23:46 05:18 WBC RBC Hgb Hct MCV MCH MCHC RDW Plt Count Lymph % (Auto) [place] % (Auto) Lymph # [place] # Baso # Seg Neutrophils % Seg Neuts % (Manual) Lymphocytes % (Manual) Monocytes % (Manual) Eosinophils % (Manual) Basophils % (Manual) Nucleated RBC % Seg Neutrophils # Seg Neutrophils # Man Lymphocytes # (Manual) Monocytes # (Manual) Eosinophils # (Manual) PT INR Fibrinogen dRVVT Confirm Interp Factor V Activity POC ABG pH POC ABG pCO2 POC ABG pO2 Sodium Potassium Chloride Carbon Dioxide BUN Creatinine Glucose POC Glucose 119 H 108 H 109 H Lactic Acid Calcium Phosphorus Magnesium Direct Bilirubin ALT Alkaline Phosphatase Troponin T C-Reactive Protein Total Protein Albumin Triglycerides Cholesterol LDL Cholesterol Direct HDL Cholesterol Urine WBC (Auto) Urine Creatinine Urine Total Protein Vancomycin Trough Rheumatoid Factor Complement C4 Miscellaneous Test Crossmatch 10/22/16 10/22/16 10/22/16 06:40 06:40 06:40 WBC 14.0 H RBC 2.03 L Hgb 7.0 L Hct 20.5 L MCV 98 H MCH 34 H MCHC 35 H RDW 17.8 H Plt Count Lymph % (Auto) [place] % (Auto) 9.9 H Lymph # [place] # 1.4 H Baso # 0.2 H Seg Neutrophils % 72.0 H Seg Neuts % (Manual) Lymphocytes % (Manual) Monocytes % (Manual) Eosinophils % (Manual) Basophils % (Manual) Nucleated RBC % Seg Neutrophils # 10.0 H Seg Neutrophils # Man Lymphocytes # (Manual) Monocytes # (Manual) Eosinophils # (Manual) PT INR Fibrinogen dRVVT Confirm Interp Factor V Activity POC ABG pH POC ABG pCO2 POC ABG pO2 Sodium 130 L D Potassium Chloride 92.4 L Carbon Dioxide 20 L BUN 50 H Creatinine 1.6 H Glucose 589 H* POC Glucose Lactic Acid Calcium 7.8 L D Phosphorus Magnesium 1.60 L Direct Bilirubin ALT Alkaline Phosphatase Troponin T C-Reactive Protein Total Protein Albumin Triglycerides Cholesterol LDL Cholesterol Direct HDL Cholesterol Urine WBC (Auto) Urine Creatinine Urine Total Protein Vancomycin Trough Rheumatoid Factor Complement C4 Miscellaneous Test Crossmatch 10/22/16 10/22/16 10/22/16 11:39 16:44 23:36 WBC RBC Hgb Hct MCV MCH MCHC RDW Plt Count Lymph % (Auto) [place] % (Auto) Lymph # [place] # Baso # Seg Neutrophils % Seg Neuts % (Manual) Lymphocytes % (Manual) Monocytes % (Manual) Eosinophils % (Manual) Basophils % (Manual) Nucleated RBC % Seg Neutrophils # Seg Neutrophils # Man Lymphocytes # (Manual) Monocytes # (Manual) Eosinophils # (Manual) PT INR Fibrinogen dRVVT Confirm Interp Factor V Activity POC ABG pH POC ABG pCO2 POC ABG pO2 Sodium Potassium Chloride Carbon Dioxide BUN Creatinine Glucose POC Glucose 142 H 163 H 123 H Lactic Acid Calcium Phosphorus Magnesium Direct Bilirubin ALT Alkaline Phosphatase Troponin T C-Reactive Protein Total Protein Albumin Triglycerides Cholesterol LDL Cholesterol Direct HDL Cholesterol Urine WBC (Auto) Urine Creatinine Urine Total Protein Vancomycin Trough Rheumatoid Factor Complement C4 Miscellaneous Test Crossmatch 10/23/16 10/23/16 10/23/16 04:58 06:00 12:12 WBC RBC Hgb Hct MCV MCH MCHC RDW Plt Count Lymph % (Auto) [place] % (Auto) Lymph # [place] # Baso # Seg Neutrophils % Seg Neuts % (Manual) Lymphocytes % (Manual) Monocytes % (Manual) Eosinophils % (Manual) Basophils % (Manual) Nucleated RBC % Seg Neutrophils # Seg Neutrophils # Man Lymphocytes # (Manual) Monocytes # (Manual) Eosinophils # (Manual) PT INR Fibrinogen dRVVT Confirm Interp Factor V Activity POC ABG pH POC ABG pCO2 POC ABG pO2 Sodium 133 L Potassium 3.5 L Chloride 96.1 L Carbon Dioxide 18 L BUN 76 H Creatinine 2.1 H Glucose POC Glucose 133 H 138 H Lactic Acid Calcium 8.3 L Phosphorus Magnesium Direct Bilirubin ALT Alkaline Phosphatase Troponin T C-Reactive Protein Total Protein Albumin Triglycerides Cholesterol LDL Cholesterol Direct HDL Cholesterol Urine WBC (Auto) Urine Creatinine Urine Total Protein Vancomycin Trough Rheumatoid Factor Complement C4 Miscellaneous Test Crossmatch 10/23/16 10/23/16 10/24/16 16:53 23:37 04:00 WBC RBC Hgb Hct MCV MCH MCHC RDW Plt Count Lymph % (Auto) [place] % (Auto) Lymph # [place] # Baso # Seg Neutrophils % Seg Neuts % (Manual) Lymphocytes % (Manual) Monocytes % (Manual) Eosinophils % (Manual) Basophils % (Manual) Nucleated RBC % Seg Neutrophils # Seg Neutrophils # Man Lymphocytes # (Manual) Monocytes # (Manual) Eosinophils # (Manual) PT INR Fibrinogen dRVVT Confirm Interp Factor V Activity POC ABG pH POC ABG pCO2 POC ABG pO2 Sodium 131 L Potassium Chloride 94.5 L Carbon Dioxide 19 L BUN 97 H Creatinine 2.6 H Glucose 110 H POC Glucose 125 H 123 H Lactic Acid Calcium 8.3 L Phosphorus Magnesium Direct Bilirubin ALT Alkaline Phosphatase Troponin T C-Reactive Protein Total Protein Albumin Triglycerides Cholesterol LDL Cholesterol Direct HDL Cholesterol Urine WBC (Auto) Urine Creatinine Urine Total Protein Vancomycin Trough Rheumatoid Factor Complement C4 Miscellaneous Test Crossmatch 10/24/16 10/24/16 10/24/16 07:49 11:39 17:52 WBC RBC Hgb 6.0 L Hct 19.7 L* MCV MCH MCHC RDW Plt Count Lymph % (Auto) [place] % (Auto) Lymph # [place] # Baso # Seg Neutrophils % Seg Neuts % (Manual) Lymphocytes % (Manual) Monocytes % (Manual) Eosinophils % (Manual) Basophils % (Manual) Nucleated RBC % Seg Neutrophils # Seg Neutrophils # Man Lymphocytes # (Manual) Monocytes # (Manual) Eosinophils # (Manual) PT INR Fibrinogen dRVVT Confirm Interp Factor V Activity POC ABG pH POC ABG pCO2 POC ABG pO2 Sodium Potassium Chloride Carbon Dioxide BUN Creatinine Glucose POC Glucose 106 H 158 H Lactic Acid Calcium Phosphorus Magnesium Direct Bilirubin ALT Alkaline Phosphatase Troponin T C-Reactive Protein Total Protein Albumin Triglycerides Cholesterol LDL Cholesterol Direct HDL Cholesterol Urine WBC (Auto) Urine Creatinine Urine Total Protein Vancomycin Trough Rheumatoid Factor Complement C4 Miscellaneous Test Crossmatch 10/24/16 10/24/16 10/24/16 20:00 22:27 Unknown WBC RBC Hgb 9.4 L D Hct 27.5 L D MCV MCH MCHC RDW Plt Count Lymph % (Auto) [place] % (Auto) Lymph # [place] # Baso # Seg Neutrophils % Seg Neuts % (Manual) Lymphocytes % (Manual) Monocytes % (Manual) Eosinophils % (Manual) Basophils % (Manual) Nucleated RBC % Seg Neutrophils # Seg Neutrophils # Man Lymphocytes # (Manual) Monocytes # (Manual) Eosinophils # (Manual) PT INR Fibrinogen dRVVT Confirm Interp Factor V Activity POC ABG pH POC ABG pCO2 POC ABG pO2 Sodium Potassium Chloride Carbon Dioxide BUN Creatinine Glucose POC Glucose 125 H Lactic Acid Calcium Phosphorus Magnesium Direct Bilirubin ALT Alkaline Phosphatase Troponin T C-Reactive Protein Total Protein Albumin Triglycerides Cholesterol LDL Cholesterol Direct HDL Cholesterol Urine WBC (Auto) Urine Creatinine Urine Total Protein Vancomycin Trough Rheumatoid Factor Complement C4 Miscellaneous Test Crossmatch See Detail 10/25/16 10/25/16 10/25/16 04:00 04:00 04:00 WBC 14.2 H RBC 2.98 L Hgb 9.0 L Hct 26.2 L MCV MCH MCHC RDW 16.6 H Plt Count Lymph % (Auto) [place] % (Auto) 10.7 H Lymph # [place] # 1.5 H Baso # Seg Neutrophils % 73.6 H Seg Neuts % (Manual) Lymphocytes % (Manual) Monocytes % (Manual) Eosinophils % (Manual) Basophils % (Manual) Nucleated RBC % Seg Neutrophils # 10.5 H Seg Neutrophils # Man Lymphocytes # (Manual) Monocytes # (Manual) Eosinophils # (Manual) PT INR Fibrinogen dRVVT Confirm Interp Factor V Activity POC ABG pH POC ABG pCO2 POC ABG pO2 Sodium 132 L Potassium Chloride 94.7 L Carbon Dioxide BUN 51 H Creatinine 1.6 H Glucose 130 H POC Glucose Lactic Acid Calcium 8.3 L Phosphorus 1.60 L D Magnesium Direct Bilirubin ALT Alkaline Phosphatase Troponin T C-Reactive Protein Total Protein Albumin Triglycerides Cholesterol LDL Cholesterol Direct HDL Cholesterol Urine WBC (Auto) Urine Creatinine Urine Total Protein Vancomycin Trough Rheumatoid Factor Complement C4 Miscellaneous Test Crossmatch 10/25/16 10/25/16 10/25/16 04:32 11:48 17:22 WBC RBC Hgb Hct MCV MCH MCHC RDW Plt Count Lymph % (Auto) [place] % (Auto) Lymph # [place] # Baso # Seg Neutrophils % Seg Neuts % (Manual) Lymphocytes % (Manual) Monocytes % (Manual) Eosinophils % (Manual) Basophils % (Manual) Nucleated RBC % Seg Neutrophils # Seg Neutrophils # Man Lymphocytes # (Manual) Monocytes # (Manual) Eosinophils # (Manual) PT INR Fibrinogen dRVVT Confirm Interp Factor V Activity POC ABG pH POC ABG pCO2 POC ABG pO2 Sodium Potassium Chloride Carbon Dioxide BUN Creatinine Glucose POC Glucose 124 H 171 H 120 H Lactic Acid Calcium Phosphorus Magnesium Direct Bilirubin ALT Alkaline Phosphatase Troponin T C-Reactive Protein Total Protein Albumin Triglycerides Cholesterol LDL Cholesterol Direct HDL Cholesterol Urine WBC (Auto) Urine Creatinine Urine Total Protein Vancomycin Trough Rheumatoid Factor Complement C4 Miscellaneous Test Crossmatch 10/26/16 10/26/16 10/26/16 04:54 07:06 07:06 WBC 16.9 H RBC 3.06 L Hgb 9.1 L Hct 26.9 L MCV MCH MCHC RDW 16.9 H Plt Count Lymph % (Auto) [place] % (Auto) Lymph # [place] # Baso # Seg Neutrophils % Seg Neuts % (Manual) 71.0 H Lymphocytes % (Manual) 5.0 L Monocytes % (Manual) 12.0 H Eosinophils % (Manual) Basophils % (Manual) Nucleated RBC % Seg Neutrophils # Seg Neutrophils # Man 12.0 H Lymphocytes # (Manual) 0.8 L Monocytes # (Manual) 2.0 H Eosinophils # (Manual) PT INR Fibrinogen dRVVT Confirm Interp Factor V Activity POC ABG pH POC ABG pCO2 POC ABG pO2 Sodium 135 L Potassium Chloride 97.1 L Carbon Dioxide BUN 73 H Creatinine 2.2 H Glucose 117 H POC Glucose 123 H Lactic Acid Calcium Phosphorus 1.70 L Magnesium Direct Bilirubin ALT Alkaline Phosphatase Troponin T C-Reactive Protein Total Protein Albumin Triglycerides Cholesterol LDL Cholesterol Direct HDL Cholesterol Urine WBC (Auto) Urine Creatinine Urine Total Protein Vancomycin Trough Rheumatoid Factor Complement C4 Miscellaneous Test Crossmatch 10/26/16 10/26/16 10/26/16 12:12 17:29 23:42 WBC RBC Hgb Hct MCV MCH MCHC RDW Plt Count Lymph % (Auto) [place] % (Auto) Lymph # [place] # Baso # Seg Neutrophils % Seg Neuts % (Manual) Lymphocytes % (Manual) Monocytes % (Manual) Eosinophils % (Manual) Basophils % (Manual) Nucleated RBC % Seg Neutrophils # Seg Neutrophils # Man Lymphocytes # (Manual) Monocytes # (Manual) Eosinophils # (Manual) PT INR Fibrinogen dRVVT Confirm Interp Factor V Activity POC ABG pH POC ABG pCO2 POC ABG pO2 Sodium Potassium Chloride Carbon Dioxide BUN Creatinine Glucose POC Glucose 126 H 161 H 118 H Lactic Acid Calcium Phosphorus Magnesium Direct Bilirubin ALT Alkaline Phosphatase Troponin T C-Reactive Protein Total Protein Albumin Triglycerides Cholesterol LDL Cholesterol Direct HDL Cholesterol Urine WBC (Auto) Urine Creatinine Urine Total Protein Vancomycin Trough Rheumatoid Factor Complement C4 Miscellaneous Test Crossmatch 10/27/16 10/27/16 10/27/16 05:03 06:30 06:30 WBC 13.9 H RBC 3.09 L Hgb 9.2 L Hct 27.5 L MCV MCH MCHC RDW 17.0 H Plt Count Lymph % (Auto) [place] % (Auto) Lymph # [place] # Baso # Seg Neutrophils % Seg Neuts % (Manual) 78.0 H Lymphocytes % (Manual) Monocytes % (Manual) Eosinophils % (Manual) Basophils % (Manual) Nucleated RBC % 2.0 H Seg Neutrophils # Seg Neutrophils # Man 10.8 H Lymphocytes # (Manual) Monocytes # (Manual) 1.0 H Eosinophils # (Manual) PT INR Fibrinogen dRVVT Confirm Interp Factor V Activity POC ABG pH POC ABG pCO2 POC ABG pO2 Sodium Potassium Chloride Carbon Dioxide BUN 40 H Creatinine 1.5 H Glucose 135 H POC Glucose 107 H Lactic Acid Calcium 8.3 L Phosphorus 1.30 L D Magnesium Direct Bilirubin ALT Alkaline Phosphatase Troponin T C-Reactive Protein Total Protein Albumin Triglycerides Cholesterol LDL Cholesterol Direct HDL Cholesterol Urine WBC (Auto) Urine Creatinine Urine Total Protein Vancomycin Trough Rheumatoid Factor Complement C4 Miscellaneous Test Crossmatch 10/27/16 10/27/16 10/27/16 13:27 18:07 23:40 WBC RBC Hgb Hct MCV MCH MCHC RDW Plt Count Lymph % (Auto) [place] % (Auto) Lymph # [place] # Baso # Seg Neutrophils % Seg Neuts % (Manual) Lymphocytes % (Manual) Monocytes % (Manual) Eosinophils % (Manual) Basophils % (Manual) Nucleated RBC % Seg Neutrophils # Seg Neutrophils # Man Lymphocytes # (Manual) Monocytes # (Manual) Eosinophils # (Manual) PT INR Fibrinogen dRVVT Confirm Interp Factor V Activity POC ABG pH POC ABG pCO2 POC ABG pO2 Sodium Potassium Chloride Carbon Dioxide BUN Creatinine Glucose POC Glucose 117 H 121 H 118 H Lactic Acid Calcium Phosphorus Magnesium Direct Bilirubin ALT Alkaline Phosphatase Troponin T C-Reactive Protein Total Protein Albumin Triglycerides Cholesterol LDL Cholesterol Direct HDL Cholesterol Urine WBC (Auto) Urine Creatinine Urine Total Protein Vancomycin Trough Rheumatoid Factor Complement C4 Miscellaneous Test Crossmatch 10/28/16 10/28/16 10/28/16 05:48 06:45 06:45 WBC 14.7 H RBC 3.05 L Hgb 9.0 L Hct 26.9 L MCV MCH MCHC RDW 16.8 H Plt Count Lymph % (Auto) 8.2 L [place] % (Auto) 8.4 H Lymph # [place] # 1.2 H Baso # Seg Neutrophils % 81.9 H Seg Neuts % (Manual) Lymphocytes % (Manual) Monocytes % (Manual) Eosinophils % (Manual) Basophils % (Manual) Nucleated RBC % Seg Neutrophils # 12.1 H Seg Neutrophils # Man Lymphocytes # (Manual) Monocytes # (Manual) Eosinophils # (Manual) PT INR Fibrinogen dRVVT Confirm Interp Factor V Activity POC ABG pH POC ABG pCO2 POC ABG pO2 Sodium Potassium Chloride Carbon Dioxide BUN 60 H Creatinine 1.9 H Glucose 120 H POC Glucose 114 H Lactic Acid Calcium Phosphorus Magnesium Direct Bilirubin ALT Alkaline Phosphatase Troponin T C-Reactive Protein Total Protein Albumin Triglycerides Cholesterol LDL Cholesterol Direct HDL Cholesterol Urine WBC (Auto) Urine Creatinine Urine Total Protein Vancomycin Trough Rheumatoid Factor Complement C4 Miscellaneous Test Crossmatch Chest x-ray: pending Allied health notes reviewed: RT
--- NOTE | 2016-10-28 11:55 | Progress Note ---
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 Her serum creatinine is also noted to be low at 1.9. Shall hold her dialysis for today. She does have some peripheral edema. Shall add IV loop diuretic. Shall also c also check a 24- hour urine for creatinine clearance * Rate control per cardiology * Abx/antifungal per ID * Vent management per critical care * Dose medications for renal function * Avoid potential nephrotoxins Subjective Date of service: 10/28/16 Principal diagnosis: Acute resp failure on MVS; S/P Acute CVA; Acute Encephalopathy; JUANITA Interval history: Patient remains on the ventilator. Currently on 30% FiO2. Opens her eyes. Objective - Vital Signs Vital signs: Vital Signs - 12hr 10/28/16 10/28/16 10/28/16 00:00 00:08 00:30 Temperature 98.5 F Pulse Rate 115 H 119 H Pulse Rate [ 121 H From Monitor] Respiratory 23 22 Rate Blood Pressure 200/120 213/123 O2 Sat by Pulse 100 100 Oximetry O2 Sat by Pulse 100 Oximetry [ Assessment] 10/28/16 10/28/16 10/28/16 00:52 01:00 01:30 Temperature Pulse Rate 120 H 127 H 121 H Pulse Rate [ From Monitor] Respiratory 30 H 26 H Rate Blood Pressure 208/126 203/121 191/116 O2 Sat by Pulse 100 100 Oximetry O2 Sat by Pulse Oximetry [ Assessment] 10/28/16 10/28/16 10/28/16 02:00 02:08 02:30 Temperature Pulse Rate 127 H 118 H 116 H Pulse Rate [ From Monitor] Respiratory 28 H 26 H Rate Blood Pressure 183/123 183/123 189/126 O2 Sat by Pulse 100 100 Oximetry O2 Sat by Pulse Oximetry [ Assessment] 10/28/16 10/28/16 10/28/16 03:00 03:30 04:00 Temperature 98.7 F Pulse Rate 117 H 120 H 122 H Pulse Rate [ From Monitor] Respiratory 25 H 27 H 25 H Rate Blood Pressure 191/125 204/123 206/133 O2 Sat by Pulse 100 96 100 Oximetry O2 Sat by Pulse Oximetry [ Assessment] 10/28/16 10/28/16 10/28/16 04:16 04:30 05:00 Temperature Pulse Rate 124 H 119 H 126 H Pulse Rate [ From Monitor] Respiratory 24 28 H Rate Blood Pressure 206/133 205/127 224/141 O2 Sat by Pulse 100 100 100 Oximetry O2 Sat by Pulse Oximetry [ Assessment] 10/28/16 10/28/16 10/28/16 05:30 06:00 06:09 Temperature Pulse Rate 118 H 120 H 121 H Pulse Rate [ From Monitor] Respiratory 24 26 H Rate Blood Pressure 197/120 204/125 204/125 O2 Sat by Pulse 100 100 Oximetry O2 Sat by Pulse Oximetry [ Assessment] 10/28/16 10/28/16 10/28/16 06:30 07:00 07:30 Temperature Pulse Rate 109 H 115 H 123 H Pulse Rate [ From Monitor] Respiratory 25 H 29 H 30 H Rate Blood Pressure 207/123 215/127 226/140 O2 Sat by Pulse 99 Oximetry O2 Sat by Pulse Oximetry [ Assessment] 10/28/16 10/28/16 10/28/16 07:59 08:00 08:10 Temperature 99 F Pulse Rate 121 H 121 H Pulse Rate [ 120 H From Monitor] Respiratory 35 H 31 H Rate Blood Pressure 226/140 209/125 O2 Sat by Pulse Oximetry O2 Sat by Pulse Oximetry [ Assessment] 10/28/16 10/28/16 10/28/16 08:30 08:43 08:44 Temperature Pulse Rate 119 H Pulse Rate [ From Monitor] Respiratory 35 H Rate Blood Pressure 209/125 O2 Sat by Pulse 99 Oximetry O2 Sat by Pulse 99 Oximetry [ Assessment] 10/28/16 10/28/16 09:00 09:15 Temperature Pulse Rate 119 H 118 H Pulse Rate [ From Monitor] Respiratory 32 H Rate Blood Pressure 177/115 177/115 O2 Sat by Pulse Oximetry O2 Sat by Pulse Oximetry [ Assessment] - General Appearance General appearance: well-developed, well-nourished, appears stated age EENT: PERRL, mucous membranes moist Neck: no JVD, other (on the ventilator via tracheostomy) Respiratory: Present: Ronchi (bilateral scattered rhonchi) Cardiology: regular, normal heart rate, S1S2, no murmurs Gastrointestinal: normal, normoactive bowel sounds Integumentary: no rash, other (1+ edema) - Lab 10/28/16 06:45 10/28/16 06:45 Most recent lab results Calcium 8.5 mg/dL (8.4-10.2) 10/28/16 06:45 Phosphorus 3.90 mg/dL (2.5-4.5) D 10/28/16 07:00 Magnesium 1.80 mg/dL (1.7-2.3) 10/28/16 07:00 Urine Creatinine 54.8 mg/dL (0.1-20.0) H 09/21/16 12:00 Urine Sodium 36 mEq/L 09/16/16 19:19 Urine Total Protein 16 mg/dL (5-11.8) H 09/16/16 19:19
--- NOTE | 2016-10-28 14:58 | Vascular Lab Report ---
MISCELLANEOUS VESSEL IDENTIFICATION: COMMENTS ON THE SCAN: The left internal jugular vein was identified and under real-time ultrasound guidance was cannulated. IMPRESSION: Successful ultrasound guided vein cannulation.
--- NOTE | 2016-10-28 15:26 | XRay Report ---
Portable chest: The cardiac contour is enlarged. There is mild vascular congestion. There is blunting and probable small right pleural effusion. The possibility of right basilar atelectasis also is considered. There is increased opacity at the left base obscuring the hemidiaphragm. Tracheostomy and nasogastric tubes are in good positions. There is a Vas-Cath entering the left jugular vein with tips in the low SVC and atrium. The triple-lumen catheter in the low SVC from right jugular vein. A recent CT scan bibasilar atelectasis is present. Impressions: 1. Bibasilar pulmonary atelectasis. 2. Mild congestive changes and right pleural effusion. 3. Multiple life-support tubes as detailed above.
--- NOTE | 2016-10-28 15:46 | Progress Note ---
Assessment and Plan - Patient Problems (1) Dislodged gastrostomy tube Current Visit: Yes Status: Acute Plan to address problem: Given the mechanism of the patient's current status, I do not recommend any feeding tube being placed in the immediate future. We'll give the patient a good period of time prior to any replacement of the feeding to likely 1 month to allow resolution of the intra-abdominal insult following dislodging of a previous feeding tube. Recommend increasing the dressing changes to her drainage sites to twice a day to improve the overall healing. Continue supportive care. Wean vent as tolerated. Subjective Date of service: 10/28/16 Patient Reports: Positive: no new complaints, afebrile Narrative: No acute events overnight. Patient awaiting transfer to LTAC. Objective Vital Signs - 12hr 10/28/16 10/28/16 10/28/16 04:00 04:16 04:30 Temperature 98.7 F Pulse Rate 122 H 124 H 119 H Pulse Rate [ From Monitor] Respiratory 25 H 24 Rate Blood Pressure 206/133 206/133 205/127 O2 Sat by Pulse 100 100 100 Oximetry O2 Sat by Pulse Oximetry [ Assessment] 10/28/16 10/28/16 10/28/16 05:00 05:30 06:00 Temperature Pulse Rate 126 H 118 H 120 H Pulse Rate [ From Monitor] Respiratory 28 H 24 26 H Rate Blood Pressure 224/141 197/120 204/125 O2 Sat by Pulse 100 100 100 Oximetry O2 Sat by Pulse Oximetry [ Assessment] 10/28/16 10/28/16 10/28/16 06:09 06:30 07:00 Temperature Pulse Rate 121 H 109 H 115 H Pulse Rate [ From Monitor] Respiratory 25 H 29 H Rate Blood Pressure 204/125 207/123 215/127 O2 Sat by Pulse 99 Oximetry O2 Sat by Pulse Oximetry [ Assessment] 10/28/16 10/28/16 10/28/16 07:30 07:59 08:00 Temperature 99 F Pulse Rate 123 H 121 H 121 H Pulse Rate [ From Monitor] Respiratory 30 H 35 H Rate Blood Pressure 226/140 226/140 209/125 O2 Sat by Pulse Oximetry O2 Sat by Pulse Oximetry [ Assessment] 10/28/16 10/28/16 10/28/16 08:10 08:30 08:43 Temperature Pulse Rate 119 H Pulse Rate [ 120 H From Monitor] Respiratory 31 H 35 H Rate Blood Pressure 209/125 O2 Sat by Pulse 99 Oximetry O2 Sat by Pulse Oximetry [ Assessment] 10/28/16 10/28/16 10/28/16 08:44 09:00 09:15 Temperature Pulse Rate 119 H 118 H Pulse Rate [ From Monitor] Respiratory 32 H Rate Blood Pressure 177/115 177/115 O2 Sat by Pulse Oximetry O2 Sat by Pulse 99 Oximetry [ Assessment] 10/28/16 10/28/16 10/28/16 09:30 10:00 10:30 Temperature Pulse Rate 126 H 104 H 113 H Pulse Rate [ From Monitor] Respiratory 33 H 29 H 35 H Rate Blood Pressure 177/115 159/111 175/104 O2 Sat by Pulse 100 100 Oximetry O2 Sat by Pulse Oximetry [ Assessment] 10/28/16 10/28/16 10/28/16 11:00 11:30 12:00 Temperature 99 F Pulse Rate 114 H 117 H 119 H Pulse Rate [ From Monitor] Respiratory 24 35 H 37 H Rate Blood Pressure 171/106 182/113 198/117 O2 Sat by Pulse 100 100 100 Oximetry O2 Sat by Pulse Oximetry [ Assessment] 10/28/16 10/28/16 10/28/16 12:30 12:33 13:00 Temperature Pulse Rate 120 H 121 H 118 H Pulse Rate [ From Monitor] Respiratory 38 H 29 H Rate Blood Pressure 198/117 198/117 200/113 O2 Sat by Pulse 100 100 Oximetry O2 Sat by Pulse Oximetry [ Assessment] - Respiratory normal respiratory effort - Abdomen soft, not tender, not distended, surgical scars (still with purulent drainage primarily coming from the lower 12 mm trocar site in the right lower quadrant.) - Labs 10/28/16 06:45 10/28/16 06:45 Diabetes panel 10/28/16 Range/Units 06:45 Sodium 139 (137-145) mmol/L Potassium 4.7 (3.6-5.0) mmol/L Chloride 99.2 (98-107) mmol/L Carbon Dioxide 22 (22-30) mmol/L BUN 60 H (7-17) mg/dL Creatinine 1.9 H (0.7-1.2) mg/dL Glucose 120 H (65-100) mg/dL Calcium 8.5 (8.4-10.2) mg/dL Calcium panel 10/28/16 10/28/16 Range/Units 06:45 07:00 Calcium 8.5 (8.4-10.2) mg/dL Phosphorus 3.90 D (2.5-4.5) mg/dL Pituitary panel 10/28/16 Range/Units 06:45 Sodium 139 (137-145) mmol/L Potassium 4.7 (3.6-5.0) mmol/L Chloride 99.2 (98-107) mmol/L Carbon Dioxide 22 (22-30) mmol/L BUN 60 H (7-17) mg/dL Creatinine 1.9 H (0.7-1.2) mg/dL Glucose 120 H (65-100) mg/dL Calcium 8.5 (8.4-10.2) mg/dL Adrenal panel 10/28/16 Range/Units 06:45 Sodium 139 (137-145) mmol/L Potassium 4.7 (3.6-5.0) mmol/L Chloride 99.2 (98-107) mmol/L Carbon Dioxide 22 (22-30) mmol/L BUN 60 H (7-17) mg/dL Creatinine 1.9 H (0.7-1.2) mg/dL Glucose 120 H (65-100) mg/dL Calcium 8.5 (8.4-10.2) mg/dL
[2016-10-28] MEDS: DIFLUCAN 200 MG/100 ML BAG IV SCH (18:52)
[2016-10-28] MEDS ORDERED: TPN ADULT 2,016 ML IV SCH (20:00)
[2016-10-28] MEDS ORDERED: INTRALIPID 20% 250 ML IV SCH (20:00)
[2016-10-28] MEDS: ZOFRAN IV PRN (22:28)
[2016-10-29] MEDS: LOPRESSOR IV SCH ×6 (01:37→21:08)
[2016-10-29] MEDS: APRESOLINE IV PRN ×2 (03:24→23:56)
[2016-10-29] MEDS: HumuLIN R SUB-Q SCH ×4 (06:00→18:09)
[2016-10-29] MEDS: ZOSYN/NS 2.25 GM/50ML 2.25 GM/50 ML BAG IV SCH (06:05)
[2016-10-29 08:24] LABS: Basophils # (Auto) 0.1 K/mm3 (0.0-0.1); Basophils % (Auto) 0.6 % (0.0-1.8); Eosinophils # (Auto) 0.1 K/mm3 (0.0-0.4); Eosinophils % (Auto) 0.8 % (0.0-4.3); Hematocrit 28.9 % (30.3-42.9); Hemoglobin 9.3 gm/dl (10.1-14.3); Lymphocytes # (Auto) 1.7 K/mm3 (1.2-5.4); Lymphocytes % (Auto) 11.9 % (13.4-35.0); Mean Corpuscular HGB Conc 32 % (30-34); Mean Corpuscular Hemoglobin 30 pg (28-32); Mean Corpuscular Volume 92 fl (79-97); Monocytes # (Auto) 1.3 K/mm3 (0.0-0.8); Monocytes % (Auto) 8.6 % (0.0-7.3); Platelet Count 299 K/mm3 (140-440); Red Blood Count 3.15 M/mm3 (3.65-5.03)
[2016-10-29 08:31] LABS: BUN/Creatinine Ratio 35.45; Calcium 8.7 mg/dL (8.4-10.2)
[2016-10-29 08:51] LABS: Creatinine Clearance Urine TNR; Creatinine,Urine TNR mg/dL (0.1-20.0); Patient Height,Urine TNR inches; Total Volume,Urine TNR
[2016-10-29] MEDS: PROTONIX IV SCH (10:30)
--- NOTE | 2016-10-29 11:38 | Progress Note ---
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 Her serum creatinine is also noted to be low as well. Shall continue to hold her dialysis for now. 24- hour urine for creatinine clearance in progress * She does have some peripheral edema also. She is severely hypoalbuminemic as well. Shall add IV albumin with Lasix * Rate control per cardiology * Abx/antifungal per ID * Vent management per critical care * Dose medications for renal function * Avoid potential nephrotoxins Subjective Date of service: 10/29/16 Principal diagnosis: Acute resp failure on MVS; S/P Acute CVA; Acute Encephalopathy; JUANITA Interval history: Patient remains on the ventilator. Currently on 30% FiO2. Opens her eyes. Objective - Vital Signs Vital signs: Vital Signs - 12hr 10/29/16 10/29/16 10/29/16 00:00 00:01 00:07 Temperature 98.5 F Pulse Rate 126 H 121 H Pulse Rate [ 119 H From Monitor] Respiratory 28 H Rate Respiratory Rate [ Generalized] Blood Pressure 155/99 155/99 O2 Sat by Pulse 99 100 Oximetry O2 Sat by Pulse Oximetry [ Assessment] 10/29/16 10/29/16 10/29/16 00:10 00:30 01:01 Temperature Pulse Rate 125 H 126 H Pulse Rate [ From Monitor] Respiratory 27 H 26 H Rate Respiratory Rate [ Generalized] Blood Pressure 168/101 167/104 O2 Sat by Pulse 100 100 Oximetry O2 Sat by Pulse 100 Oximetry [ Assessment] 10/29/16 10/29/16 10/29/16 01:30 01:37 02:00 Temperature Pulse Rate 112 H 112 H 118 H Pulse Rate [ From Monitor] Respiratory 28 H 26 H Rate Respiratory Rate [ Generalized] Blood Pressure 162/92 162/92 165/100 O2 Sat by Pulse 96 100 Oximetry O2 Sat by Pulse Oximetry [ Assessment] 10/29/16 10/29/16 10/29/16 02:31 03:01 03:24 Temperature Pulse Rate 122 H 123 H 117 H Pulse Rate [ From Monitor] Respiratory 29 H 37 H Rate Respiratory Rate [ Generalized] Blood Pressure 167/100 175/108 178/110 O2 Sat by Pulse 98 97 Oximetry O2 Sat by Pulse Oximetry [ Assessment] 10/29/16 10/29/16 10/29/16 03:31 04:00 04:01 Temperature Pulse Rate 123 H 121 H Pulse Rate [ 129 H From Monitor] Respiratory 32 H 25 H Rate Respiratory Rate [ Generalized] Blood Pressure 183/108 156/87 O2 Sat by Pulse 100 100 Oximetry O2 Sat by Pulse Oximetry [ Assessment] 10/29/16 10/29/16 10/29/16 04:02 04:15 04:31 Temperature 100.4 F H Pulse Rate 111 H 125 H Pulse Rate [ From Monitor] Respiratory 29 H Rate Respiratory Rate [ Generalized] Blood Pressure 156/87 137/79 O2 Sat by Pulse 96 95 Oximetry O2 Sat by Pulse Oximetry [ Assessment] 10/29/16 10/29/16 10/29/16 05:00 05:31 06:00 Temperature Pulse Rate 127 H 128 H 133 H Pulse Rate [ From Monitor] Respiratory 29 H 26 H 31 H Rate Respiratory Rate [ Generalized] Blood Pressure 151/89 141/88 157/94 O2 Sat by Pulse 97 99 98 Oximetry O2 Sat by Pulse Oximetry [ Assessment] 10/29/16 10/29/16 10/29/16 06:05 06:30 07:01 Temperature Pulse Rate 122 H 131 H 134 H Pulse Rate [ From Monitor] Respiratory 28 H 29 H Rate Respiratory Rate [ Generalized] Blood Pressure 146/89 150/90 161/93 O2 Sat by Pulse 99 99 Oximetry O2 Sat by Pulse Oximetry [ Assessment] 10/29/16 10/29/16 10/29/16 07:30 07:38 08:00 Temperature 101.1 F H Pulse Rate 122 H 123 H Pulse Rate [ From Monitor] Respiratory 28 H Rate Respiratory Rate [ Generalized] Blood Pressure 162/98 160/95 O2 Sat by Pulse 99 99 Oximetry O2 Sat by Pulse 100 Oximetry [ Assessment] 10/29/16 10/29/16 10/29/16 08:01 08:05 08:30 Temperature Pulse Rate 125 H 129 H 124 H Pulse Rate [ From Monitor] Respiratory 29 H 45 H 25 H Rate Respiratory Rate [ Generalized] Blood Pressure 160/95 172/95 O2 Sat by Pulse 99 100 Oximetry O2 Sat by Pulse Oximetry [ Assessment] 10/29/16 10/29/16 10/29/16 09:01 09:31 10:00 Temperature Pulse Rate 127 H 124 H 108 H Pulse Rate [ From Monitor] Respiratory 28 H 24 Rate Respiratory 31 H Rate [ Generalized] Blood Pressure 179/95 175/102 O2 Sat by Pulse 100 100 Oximetry O2 Sat by Pulse Oximetry [ Assessment] 10/29/16 10/29/16 10:01 10:31 Temperature Pulse Rate 125 H 126 H Pulse Rate [ From Monitor] Respiratory 29 H 29 H Rate Respiratory Rate [ Generalized] Blood Pressure 184/100 184/100 O2 Sat by Pulse 100 100 Oximetry O2 Sat by Pulse Oximetry [ Assessment] - General Appearance General appearance: well-developed, well-nourished, appears stated age EENT: PERRL, mucous membranes moist Neck: no JVD, no thyromegaly, no carotid bruit, supple, other (right IJ Vas- Cath in place. She has a left IJ PermCath in place also) Respiratory: Present: Ronchi (few scattered rhonchi) Cardiology: regular, normal heart rate, S1S2, no murmurs Gastrointestinal: normoactive bowel sounds, other (grimacing noted over the abdominal wall. Drainage bag over her leg gives site) Integumentary: other (1+ edema) - Lab 10/29/16 07:45 10/29/16 07:45 Most recent lab results Calcium 8.7 mg/dL (8.4-10.2) 10/29/16 07:45 Phosphorus 4.40 mg/dL (2.5-4.5) 10/29/16 07:45 Magnesium 1.90 mg/dL (1.7-2.3) 10/29/16 07:45 Urine Creatinine TNR 10/29/16 07:45 Urine Sodium 36 mEq/L 09/16/16 19:19 Urine Total Protein 16 mg/dL (5-11.8) H 09/16/16 19:19
--- NOTE | 2016-10-29 12:32 | Progress Note ---
Assessment and Plan (1) Acute respiratory failure with hypoxia Current Visit: Yes Status: Acute Plan to address problem: - continue aspiration precautions - continue to wean oxygen for MAP > 94% - continue bronchodilators and pulmonary toilet - s/p tracheostomy - not tolerating weaning today - resume trials in am as tolerated - CXR reveals mild volume overload pattern and will treat conservatively with HD /UF (2) Acute CVA (cerebrovascular accident) Current Visit: Yes Status: Acute Plan to address problem: - out of tpA window (initially stopped due to uncontrolled HTN) - Left MCA teritory stroke with some midline shift on last CT - seen by neurology and prognosis for recovery of mental status guarded to poor - optimizing secondary prevention modalities now (BP, lipid anti-platelet therapy) - off systemic steroids now (started earlier for edema) - clinically about the same (3) Hypertensive emergency Current Visit: Yes Status: Acute Plan to address problem: - stopped all antihypertensives while septic prior - BP's running high today - on scheduled IV metoprolol with prn IV hydralazine - clonidine patch was placed (0.1mg patch) but BP's still high - will increase patch dosing to 0.2mg (4) Obesity (BMI 35.0-39.9 without comorbidity) Current Visit: Yes Status: Chronic Plan to address problem: - nutrition consult placed for enteral formulation - on TPN now - following clinically (5) Type 2 diabetes mellitus Current Visit: Yes Status: Chronic Qualifiers: Diabetes mellitus complication status: D Diabetes mellitus complication detail: D Diabetic retinopathy severity: D Proliferative retinopathy type: P Diabetes mellitus macular edema: D Diabetes mellitus intermediate frame tender insulin use : D Laterality: L Chronic kidney disease stage: C Plan to address problem: - continue SSI - discontinued lantus re: hypoglycemia - target BG's <180 mg/dl (6) Leukocytosis (leucocytosis) Current Visit: Yes Status: Acute Qualifiers: Leukocytosis type: leukemoid reaction Qualified Code(s): D72.823 - Leukemoid reaction Plan to address problem: - completed cancidas and de-escalate per ID recs - leucocytosis persistent but now trending down - on zosyn and diflucan now - wound cultures growing pseudomonas and dann (7) Agitation Current Visit: Yes Status: Acute Plan to address problem: - prn sedation / analgesia - tapered off seroquel for now (8) Atrial fibrillation Current Visit: Yes Status: Acute Qualifiers: Atrial fibrillation type: A Plan to address problem: - failed cardioversion earlier - cardiology evaluation ongoing - back in A-fib - continue amiodarone drip (change to p.o. once tolerating enterally) - on IV metoprolol scheduled re: HTN & tachycardia (9) JUANITA (acute kidney injury) Current Visit: Yes Status: Acute Plan to address problem: - on Dialysis now - continue HD/UF per nephrology recommendations - s/p tunnelled vas-cath (10) Pyrexia of unknown origin Current Visit: Yes Status: Acute Plan to address problem: - dopplers negative for DVT - continue to treat with Anti-infectives (11) Severe sepsis Current Visit: Yes Status: Acute Plan to address problem: - resume vasopressors for MAP < 60mmHg not responsive to volume - all central vascular access has been discontinued after fungemia reported - care plan formulated with ID input - BC's from 09/27/16 growing in 1of 2 but still no ID yet - coomplete micafungin per ID recs and stop date - wound care nurse also managing back wounds - clinically stable and hemodynamically improved - bo to RLQ incision removed and wound drained and packed - on contact precautions for MDRO PSAR (12) Emesis Current Visit: Yes Status: Acute Qualifiers: Vomiting type: V Vomiting Intractability: V Nausea presence: N Plan to address problem: - s/p surgical repair of gastric perforation - continue TPN for now - follow surgery recommendations re: feeding and new PEG tube (13) Dysphagia, oropharyngeal Current Visit: Yes Status: Acute Plan to address problem: - discussed with surgeon and she will be best served with continued treatment with anti-infectives as well as time for the GI tract and her wounds to heal before replacing the PEG tube - will keep feeding with NGT for 1 month before re-evaluation based on clinical picture during ex-lap; however held today due to high residuals (14) Discharge planning issues Current Visit: Yes Status: Acute Plan to address problem: - she remains critically ill on life sustaining interventions including MVS and at risk for further acute deterioration including - plan is to see if patient can transfer to LTAC in interim and be brought back for PEG placement .....35' CCT ....intermediate frame tender prognosis is guarded Subjective Date of service: 10/29/16 Principal diagnosis: Acute resp failure on MVS; S/P Acute CVA; Acute Encephalopathy; JUANITA Interval history: Seen and examined at bedside; 24 hour events reviewed; nursing and respiratory care staff consulted; no adverse overnight events reported to me; resting peacefully; tolerated T-piece yesterday; breathing a labored on trials today and she is back on AC; AMS is persistent; BP's running high earlier; Still with some drainage from the RLQ wound site Objective Vital Signs - 12hr 10/29/16 10/29/16 10/29/16 01:01 01:30 01:37 Temperature Pulse Rate 126 H 112 H 112 H Pulse Rate [ From Monitor] Respiratory 26 H 28 H Rate Respiratory Rate [ Generalized] Blood Pressure 167/104 162/92 162/92 O2 Sat by Pulse 100 96 Oximetry O2 Sat by Pulse Oximetry [ Assessment] 10/29/16 10/29/16 10/29/16 02:00 02:31 03:01 Temperature Pulse Rate 118 H 122 H 123 H Pulse Rate [ From Monitor] Respiratory 26 H 29 H 37 H Rate Respiratory Rate [ Generalized] Blood Pressure 165/100 167/100 175/108 O2 Sat by Pulse 100 98 97 Oximetry O2 Sat by Pulse Oximetry [ Assessment] 10/29/16 10/29/16 10/29/16 03:24 03:31 04:00 Temperature Pulse Rate 117 H 123 H Pulse Rate [ 129 H From Monitor] Respiratory 32 H Rate Respiratory Rate [ Generalized] Blood Pressure 178/110 183/108 O2 Sat by Pulse 100 Oximetry O2 Sat by Pulse Oximetry [ Assessment] 10/29/16 10/29/16 10/29/16 04:01 04:02 04:15 Temperature 100.4 F H Pulse Rate 121 H 111 H Pulse Rate [ From Monitor] Respiratory 25 H Rate Respiratory Rate [ Generalized] Blood Pressure 156/87 156/87 O2 Sat by Pulse 100 96 Oximetry O2 Sat by Pulse Oximetry [ Assessment] 10/29/16 10/29/16 10/29/16 04:31 05:00 05:31 Temperature Pulse Rate 125 H 127 H 128 H Pulse Rate [ From Monitor] Respiratory 29 H 29 H 26 H Rate Respiratory Rate [ Generalized] Blood Pressure 137/79 151/89 141/88 O2 Sat by Pulse 95 97 99 Oximetry O2 Sat by Pulse Oximetry [ Assessment] 0910/29/16 10/29/16 06:00 06:05 06:30 Temperature Pulse Rate 133 H 122 H 131 H Pulse Rate [ From Monitor] Respiratory 31 H 28 H Rate Respiratory Rate [ Generalized] Blood Pressure 157/94 146/89 150/90 O2 Sat by Pulse 98 99 Oximetry O2 Sat by Pulse Oximetry [ Assessment] 10/29/16 10/29/16 10/29/16 07:01 07:30 07:38 Temperature Pulse Rate 134 H 122 H 123 H Pulse Rate [ From Monitor] Respiratory 29 H 28 H Rate Respiratory Rate [ Generalized] Blood Pressure 161/93 162/98 160/95 O2 Sat by Pulse 99 99 99 Oximetry O2 Sat by Pulse 100 Oximetry [ Assessment] 10/29/16 10/29/16 10/29/16 08:00 08:01 08:05 Temperature 101.1 F H Pulse Rate 125 H 129 H Pulse Rate [ From Monitor] Respiratory 29 H 45 H Rate Respiratory Rate [ Generalized] Blood Pressure 160/95 O2 Sat by Pulse 99 Oximetry O2 Sat by Pulse Oximetry [ Assessment] 10/29/16 10/29/16 10/29/16 08:30 09:01 09:31 Temperature Pulse Rate 124 H 127 H 124 H Pulse Rate [ From Monitor] Respiratory 25 H 28 H 24 Rate Respiratory Rate [ Generalized] Blood Pressure 172/95 179/95 175/102 O2 Sat by Pulse 100 100 100 Oximetry O2 Sat by Pulse Oximetry [ Assessment] 10/29/16 10/29/16 10/29/16 10:00 10:01 10:31 Temperature Pulse Rate 108 H 125 H 126 H Pulse Rate [ From Monitor] Respiratory 29 H 29 H Rate Respiratory 31 H Rate [ Generalized] Blood Pressure 184/100 184/100 O2 Sat by Pulse 100 100 Oximetry O2 Sat by Pulse Oximetry [ Assessment] Constitutional: no acute distress, other (eyes open; not tracking movements) Eyes: non-icteric, other (tracheostomy tube in midline of neck) ENT: oropharynx moist Neck: supple, no lymphadenopathy Effort: mildly labored Ascultation: Right: diminished breath sounds (base), Bilateral: rhonchi (scant) Cardiovascular: regular rate and rhythm Gastrointestinal: hypoactive bowel sounds, soft, non-tender, non-distended, other (RLQ wound dressed) Integumentary: other (erythema to skin of back with some healing areas; no obvious TEN's features) Extremities: no cyanosis, no edema, pulses normal, no ischemia or petechiae Neurologic: pupils equal and round, other (sedated) Psychiatric: other (unable to assess) CBC and BMP: 10/29/16 07:45 10/29/16 07:45 ABG, PT/INR, D-dimer: ABG POC ABG pH 7.561 (7.35-7.45) H 10/16/16 20:48 POC ABG pCO2 24.4 (35-45) L 10/16/16 20:48 POC ABG pO2 77 (80-105) L 10/16/16 20:48 POC ABG HCO3 21.9 10/16/16 20:48 POC ABG Total CO2 23 10/16/16 20:48 POC ABG O2 Sat 97 10/16/16 20:48 PT/INR, D-dimer PT 19.0 Sec. (12.2-14.9) H 10/09/16 03:45 INR 1.51 (0.87-1.13) H 10/09/16 03:45 Abnormal lab findings: Abnormal Labs 09/03/16 09/03/16 09/03/16 12:12 15:07 16:20 WBC RBC Hgb Hct MCV MCH MCHC RDW Plt Count Lymph % (Auto) [place] % (Auto) Lymph # [place] # Baso # Seg Neutrophils % Seg Neuts % (Manual) Lymphocytes % (Manual) Monocytes % (Manual) Eosinophils % (Manual) Basophils % (Manual) Nucleated RBC % Seg Neutrophils # Seg Neutrophils # Man Lymphocytes # (Manual) Monocytes # (Manual) Eosinophils # (Manual) PT INR Fibrinogen dRVVT Confirm Interp Factor V Activity POC ABG pH 7.452 H POC ABG pCO2 POC ABG pO2 Sodium Potassium Chloride Carbon Dioxide BUN Creatinine Glucose POC Glucose 178 H Lactic Acid Calcium Phosphorus 2.20 L Magnesium 1.60 L Direct Bilirubin ALT Alkaline Phosphatase Troponin T C-Reactive Protein Total Protein Albumin Triglycerides Cholesterol LDL Cholesterol Direct HDL Cholesterol Urine WBC (Auto) Urine Creatinine Urine Total Protein Vancomycin Trough Rheumatoid Factor Complement C4 Miscellaneous Test Crossmatch 09/03/16 09/03/16 09/03/16 17:57 17:58 23:50 WBC RBC Hgb Hct MCV MCH MCHC RDW Plt Count Lymph % (Auto) [place] % (Auto) Lymph # [place] # Baso # Seg Neutrophils % Seg Neuts % (Manual) Lymphocytes % (Manual) Monocytes % (Manual) Eosinophils % (Manual) Basophils % (Manual) Nucleated RBC % Seg Neutrophils # Seg Neutrophils # Man Lymphocytes # (Manual) Monocytes # (Manual) Eosinophils # (Manual) PT INR Fibrinogen dRVVT Confirm Interp Factor V Activity POC ABG pH POC ABG pCO2 POC ABG pO2 Sodium Potassium Chloride Carbon Dioxide BUN Creatinine Glucose POC Glucose 162 H 145 H Lactic Acid Calcium Phosphorus 2.30 L Magnesium Direct Bilirubin ALT Alkaline Phosphatase Troponin T C-Reactive Protein Total Protein Albumin Triglycerides Cholesterol LDL Cholesterol Direct HDL Cholesterol Urine WBC (Auto) Urine Creatinine Urine Total Protein Vancomycin Trough Rheumatoid Factor Complement C4 Miscellaneous Test Crossmatch 09/04/16 09/04/16 09/04/16 03:31 03:31 05:42 WBC RBC Hgb 9.7 L D Hct MCV 72 L MCH 23 L MCHC RDW 17.5 H Plt Count Lymph % (Auto) 11.1 L [place] % (Auto) Lymph # [place] # Baso # Seg Neutrophils % 84.3 H Seg Neuts % (Manual) Lymphocytes % (Manual) Monocytes % (Manual) Eosinophils % (Manual) Basophils % (Manual) Nucleated RBC % Seg Neutrophils # 8.9 H Seg Neutrophils # Man Lymphocytes # (Manual) Monocytes # (Manual) Eosinophils # (Manual) PT INR Fibrinogen dRVVT Confirm Interp Factor V Activity POC ABG pH POC ABG pCO2 POC ABG pO2 Sodium 135 L Potassium 2.9 L* Chloride 97.2 L Carbon Dioxide 19 L BUN Creatinine 1.7 H Glucose 170 H POC Glucose 152 H Lactic Acid Calcium Phosphorus Magnesium Direct Bilirubin ALT Alkaline Phosphatase Troponin T C-Reactive Protein Total Protein Albumin Triglycerides 160 H Cholesterol LDL Cholesterol Direct HDL Cholesterol 31 L Urine WBC (Auto) Urine Creatinine Urine Total Protein Vancomycin Trough Rheumatoid Factor Complement C4 Miscellaneous Test Crossmatch 09/04/16 09/04/16 09/04/16 11:34 17:46 23:29 WBC RBC Hgb Hct MCV MCH MCHC RDW Plt Count Lymph % (Auto) [place] % (Auto) Lymph # [place] # Baso # Seg Neutrophils % Seg Neuts % (Manual) Lymphocytes % (Manual) Monocytes % (Manual) Eosinophils % (Manual) Basophils % (Manual) Nucleated RBC % Seg Neutrophils # Seg Neutrophils # Man Lymphocytes # (Manual) Monocytes # (Manual) Eosinophils # (Manual) PT INR Fibrinogen dRVVT Confirm Interp Factor V Activity POC ABG pH POC ABG pCO2 POC ABG pO2 Sodium Potassium Chloride Carbon Dioxide BUN Creatinine Glucose POC Glucose 165 H 210 H 139 H Lactic Acid Calcium Phosphorus Magnesium Direct Bilirubin ALT Alkaline Phosphatase Troponin T C-Reactive Protein Total Protein Albumin Triglycerides Cholesterol LDL Cholesterol Direct HDL Cholesterol Urine WBC (Auto) Urine Creatinine Urine Total Protein Vancomycin Trough Rheumatoid Factor Complement C4 Miscellaneous Test Crossmatch 09/05/16 09/05/16 09/05/16 04:05 04:05 05:38 WBC RBC Hgb Hct MCV 76 L D MCH 23 L MCHC RDW 17.8 H Plt Count Lymph % (Auto) [place] % (Auto) Lymph # [place] # Baso # Seg Neutrophils % Seg Neuts % (Manual) Lymphocytes % (Manual) Monocytes % (Manual) Eosinophils % (Manual) Basophils % (Manual) Nucleated RBC % Seg Neutrophils # Seg Neutrophils # Man Lymphocytes # (Manual) Monocytes # (Manual) Eosinophils # (Manual) PT INR Fibrinogen dRVVT Confirm Interp Factor V Activity POC ABG pH POC ABG pCO2 POC ABG pO2 Sodium 134 L Potassium Chloride Carbon Dioxide 18 L BUN Creatinine 1.8 H Glucose 192 H POC Glucose 175 H Lactic Acid Calcium Phosphorus Magnesium Direct Bilirubin ALT Alkaline Phosphatase Troponin T C-Reactive Protein Total Protein Albumin Triglycerides Cholesterol LDL Cholesterol Direct HDL Cholesterol Urine WBC (Auto) Urine Creatinine Urine Total Protein Vancomycin Trough Rheumatoid Factor Complement C4 Miscellaneous Test Crossmatch 09/05/16 09/05/16 09/05/16 11:38 17:48 23:22 WBC RBC Hgb Hct MCV MCH MCHC RDW Plt Count Lymph % (Auto) [place] % (Auto) Lymph # [place] # Baso # Seg Neutrophils % Seg Neuts % (Manual) Lymphocytes % (Manual) Monocytes % (Manual) Eosinophils % (Manual) Basophils % (Manual) Nucleated RBC % Seg Neutrophils # Seg Neutrophils # Man Lymphocytes # (Manual) Monocytes # (Manual) Eosinophils # (Manual) PT INR Fibrinogen dRVVT Confirm Interp Factor V Activity POC ABG pH POC ABG pCO2 POC ABG pO2 Sodium Potassium Chloride Carbon Dioxide BUN Creatinine Glucose POC Glucose 164 H 186 H 195 H Lactic Acid Calcium Phosphorus Magnesium Direct Bilirubin ALT Alkaline Phosphatase Troponin T C-Reactive Protein Total Protein Albumin Triglycerides Cholesterol LDL Cholesterol Direct HDL Cholesterol Urine WBC (Auto) Urine Creatinine Urine Total Protein Vancomycin Trough Rheumatoid Factor Complement C4 Miscellaneous Test Crossmatch 09/06/16 09/06/16 09/06/16 04:12 05:59 07:32 WBC RBC Hgb Hct MCV MCH MCHC RDW Plt Count Lymph % (Auto) [place] % (Auto) Lymph # [place] # Baso # Seg Neutrophils % Seg Neuts % (Manual) Lymphocytes % (Manual) Monocytes % (Manual) Eosinophils % (Manual) Basophils % (Manual) Nucleated RBC % Seg Neutrophils # Seg Neutrophils # Man Lymphocytes # (Manual) Monocytes # (Manual) Eosinophils # (Manual) PT INR Fibrinogen dRVVT Confirm Interp Factor V Activity POC ABG pH 7.514 H POC ABG pCO2 29.1 L POC ABG pO2 72 L Sodium 133 L Potassium 3.4 L Chloride 94.9 L Carbon Dioxide 19 L BUN 30 H Creatinine 2.1 H Glucose 139 H POC Glucose 146 H Lactic Acid Calcium Phosphorus Magnesium Direct Bilirubin ALT Alkaline Phosphatase Troponin T C-Reactive Protein Total Protein Albumin Triglycerides Cholesterol LDL Cholesterol Direct HDL Cholesterol Urine WBC (Auto) Urine Creatinine Urine Total Protein Vancomycin Trough Rheumatoid Factor Complement C4 Miscellaneous Test Crossmatch 09/06/16 09/06/16 09/06/16 11:57 17:58 19:02 WBC RBC Hgb Hct MCV MCH MCHC RDW Plt Count Lymph % (Auto) [place] % (Auto) Lymph # [place] # Baso # Seg Neutrophils % Seg Neuts % (Manual) Lymphocytes % (Manual) Monocytes % (Manual) Eosinophils % (Manual) Basophils % (Manual) Nucleated RBC % Seg Neutrophils # Seg Neutrophils # Man Lymphocytes # (Manual) Monocytes # (Manual) Eosinophils # (Manual) PT INR Fibrinogen dRVVT Confirm Interp Factor V Activity POC ABG pH 7.465 H POC ABG pCO2 32.0 L POC ABG pO2 Sodium Potassium Chloride Carbon Dioxide BUN Creatinine Glucose POC Glucose 165 H 160 H Lactic Acid Calcium Phosphorus Magnesium Direct Bilirubin ALT Alkaline Phosphatase Troponin T C-Reactive Protein Total Protein Albumin Triglycerides Cholesterol LDL Cholesterol Direct HDL Cholesterol Urine WBC (Auto) Urine Creatinine Urine Total Protein Vancomycin Trough Rheumatoid Factor Complement C4 Miscellaneous Test Crossmatch 09/06/16 09/07/16 09/07/16 23:45 02:47 02:47 WBC RBC Hgb Hct MCV MCH MCHC RDW Plt Count Lymph % (Auto) [place] % (Auto) Lymph # [place] # Baso # Seg Neutrophils % Seg Neuts % (Manual) Lymphocytes % (Manual) Monocytes % (Manual) Eosinophils % (Manual) Basophils % (Manual) Nucleated RBC % Seg Neutrophils # Seg Neutrophils # Man Lymphocytes # (Manual) Monocytes # (Manual) Eosinophils # (Manual) PT INR Fibrinogen dRVVT Confirm Interp Factor V Activity POC ABG pH POC ABG pCO2 POC ABG pO2 Sodium Potassium Chloride Carbon Dioxide BUN Creatinine Glucose POC Glucose 204 H Lactic Acid Calcium Phosphorus Magnesium Direct Bilirubin ALT Alkaline Phosphatase Troponin T C-Reactive Protein Total Protein Albumin Triglycerides Cholesterol LDL Cholesterol Direct HDL Cholesterol Urine WBC (Auto) 68.0 H Urine Creatinine 106.1 H Urine Total Protein Vancomycin Trough Rheumatoid Factor Complement C4 Miscellaneous Test Crossmatch 09/07/16 09/07/16 09/07/16 04:50 06:19 06:39 WBC RBC Hgb Hct MCV MCH MCHC RDW Plt Count Lymph % (Auto) [place] % (Auto) Lymph # [place] # Baso # Seg Neutrophils % Seg Neuts % (Manual) Lymphocytes % (Manual) Monocytes % (Manual) Eosinophils % (Manual) Basophils % (Manual) Nucleated RBC % Seg Neutrophils # Seg Neutrophils # Man Lymphocytes # (Manual) Monocytes # (Manual) Eosinophils # (Manual) PT INR Fibrinogen dRVVT Confirm Interp Factor V Activity POC ABG pH 7.457 H POC ABG pCO2 32.1 L POC ABG pO2 76 L Sodium 132 L Potassium Chloride 94.7 L Carbon Dioxide BUN 53 H Creatinine 2.9 H Glucose 151 H POC Glucose 149 H Lactic Acid Calcium Phosphorus Magnesium Direct Bilirubin ALT Alkaline Phosphatase Troponin T C-Reactive Protein Total Protein Albumin Triglycerides Cholesterol LDL Cholesterol Direct HDL Cholesterol Urine WBC (Auto) Urine Creatinine Urine Total Protein Vancomycin Trough Rheumatoid Factor Complement C4 Miscellaneous Test Crossmatch 09/07/16 09/07/16 09/07/16 09:20 11:43 11:43 WBC 19.4 H RBC Hgb 8.3 L Hct 26.4 L D MCV 72 L D MCH 22 L MCHC RDW 17.9 H Plt Count Lymph % (Auto) 8.5 L [place] % (Auto) Lymph # [place] # 1.0 H Baso # Seg Neutrophils % 85.8 H Seg Neuts % (Manual) Lymphocytes % (Manual) Monocytes % (Manual) Eosinophils % (Manual) Basophils % (Manual) Nucleated RBC % Seg Neutrophils # 16.6 H Seg Neutrophils # Man Lymphocytes # (Manual) Monocytes # (Manual) Eosinophils # (Manual) PT INR Fibrinogen dRVVT Confirm Interp Factor V Activity POC ABG pH POC ABG pCO2 POC ABG pO2 Sodium 134 L Potassium Chloride 97.2 L Carbon Dioxide 20 L BUN 58 H Creatinine 2.9 H Glucose 147 H POC Glucose Lactic Acid Calcium Phosphorus 2.40 L Magnesium 2.40 H Direct Bilirubin ALT Alkaline Phosphatase Troponin T C-Reactive Protein Total Protein 5.8 L Albumin 2.2 L Triglycerides Cholesterol LDL Cholesterol Direct HDL Cholesterol Urine WBC (Auto) Urine Creatinine Urine Total Protein Vancomycin Trough Rheumatoid Factor Complement C4 58 H Miscellaneous Test Crossmatch 09/07/16 09/07/16 09/07/16 11:50 16:00 17:31 WBC RBC Hgb Hct MCV MCH MCHC RDW Plt Count Lymph % (Auto) [place] % (Auto) Lymph # [place] # Baso # Seg Neutrophils % Seg Neuts % (Manual) Lymphocytes % (Manual) Monocytes % (Manual) Eosinophils % (Manual) Basophils % (Manual) Nucleated RBC % Seg Neutrophils # Seg Neutrophils # Man Lymphocytes # (Manual) Monocytes # (Manual) Eosinophils # (Manual) PT INR Fibrinogen dRVVT Confirm Interp Factor V Activity POC ABG pH POC ABG pCO2 POC ABG pO2 158 H Sodium Potassium Chloride Carbon Dioxide BUN Creatinine Glucose POC Glucose 175 H Lactic Acid Calcium Phosphorus Magnesium Direct Bilirubin ALT Alkaline Phosphatase Troponin T C-Reactive Protein Total Protein Albumin Triglycerides Cholesterol LDL Cholesterol Direct HDL Cholesterol Urine WBC (Auto) Urine Creatinine 66.3 H Urine Total Protein Vancomycin Trough Rheumatoid Factor Complement C4 Miscellaneous Test Crossmatch 09/07/16 09/08/16 09/08/16 23:50 05:46 06:18 WBC 17.8 H RBC 3.58 L Hgb 8.1 L Hct 25.5 L MCV 71 L MCH 23 L MCHC RDW 18.4 H Plt Count Lymph % (Auto) [place] % (Auto) Lymph # [place] # Baso # Seg Neutrophils % Seg Neuts % (Manual) 92.0 H Lymphocytes % (Manual) 6.0 L Monocytes % (Manual) Eosinophils % (Manual) Basophils % (Manual) Nucleated RBC % Seg Neutrophils # Seg Neutrophils # Man 16.4 H Lymphocytes # (Manual) 1.1 L Monocytes # (Manual) Eosinophils # (Manual) PT INR Fibrinogen dRVVT Confirm Interp Factor V Activity POC ABG pH POC ABG pCO2 34.3 L POC ABG pO2 71 L Sodium Potassium Chloride Carbon Dioxide BUN Creatinine Glucose POC Glucose 216 H Lactic Acid Calcium Phosphorus Magnesium Direct Bilirubin ALT Alkaline Phosphatase Troponin T C-Reactive Protein Total Protein Albumin Triglycerides Cholesterol LDL Cholesterol Direct HDL Cholesterol Urine WBC (Auto) Urine Creatinine Urine Total Protein Vancomycin Trough Rheumatoid Factor Complement C4 Miscellaneous Test Crossmatch 09/08/16 09/08/16 09/08/16 06:18 06:51 10:55 WBC RBC Hgb Hct MCV MCH MCHC RDW Plt Count Lymph % (Auto) [place] % (Auto) Lymph # [place] # Baso # Seg Neutrophils % Seg Neuts % (Manual) Lymphocytes % (Manual) Monocytes % (Manual) Eosinophils % (Manual) Basophils % (Manual) Nucleated RBC % Seg Neutrophils # Seg Neutrophils # Man Lymphocytes # (Manual) Monocytes # (Manual) Eosinophils # (Manual) PT INR Fibrinogen dRVVT Confirm Interp Factor V Activity POC ABG pH POC ABG pCO2 POC ABG pO2 Sodium 133 L Potassium Chloride 96.9 L Carbon Dioxide 20 L BUN 63 H Creatinine 2.7 H Glucose 195 H POC Glucose 204 H 169 H Lactic Acid Calcium Phosphorus Magnesium Direct Bilirubin ALT Alkaline Phosphatase Troponin T C-Reactive Protein Total Protein Albumin Triglycerides Cholesterol LDL Cholesterol Direct HDL Cholesterol Urine WBC (Auto) Urine Creatinine Urine Total Protein Vancomycin Trough Rheumatoid Factor Complement C4 Miscellaneous Test Crossmatch 09/08/16 09/08/16 09/08/16 11:48 11:48 11:48 WBC RBC Hgb Hct MCV MCH MCHC RDW Plt Count Lymph % (Auto) [place] % (Auto) Lymph # [place] # Baso # Seg Neutrophils % Seg Neuts % (Manual) Lymphocytes % (Manual) Monocytes % (Manual) Eosinophils % (Manual) Basophils % (Manual) Nucleated RBC % Seg Neutrophils # Seg Neutrophils # Man Lymphocytes # (Manual) Monocytes # (Manual) Eosinophils # (Manual) PT INR Fibrinogen 750 H dRVVT Confirm Interp Factor V Activity POC ABG pH POC ABG pCO2 POC ABG pO2 Sodium Potassium Chloride Carbon Dioxide BUN Creatinine Glucose POC Glucose Lactic Acid Calcium Phosphorus Magnesium Direct Bilirubin ALT Alkaline Phosphatase Troponin T C-Reactive Protein 15.70 H Total Protein Albumin Triglycerides Cholesterol LDL Cholesterol Direct HDL Cholesterol Urine WBC (Auto) Urine Creatinine Urine Total Protein Vancomycin Trough Rheumatoid Factor 24 H Complement C4 Miscellaneous Test Crossmatch 09/08/16 09/08/16 09/09/16 15:35 18:25 00:24 WBC RBC Hgb Hct MCV MCH MCHC RDW Plt Count Lymph % (Auto) [place] % (Auto) Lymph # [place] # Baso # Seg Neutrophils % Seg Neuts % (Manual) Lymphocytes % (Manual) Monocytes % (Manual) Eosinophils % (Manual) Basophils % (Manual) Nucleated RBC % Seg Neutrophils # Seg Neutrophils # Man Lymphocytes # (Manual) Monocytes # (Manual) Eosinophils # (Manual) PT INR Fibrinogen dRVVT Confirm Interp Factor V Activity 182 H POC ABG pH POC ABG pCO2 POC ABG pO2 Sodium Potassium Chloride Carbon Dioxide BUN Creatinine Glucose POC Glucose 184 H 216 H Lactic Acid Calcium Phosphorus Magnesium Direct Bilirubin ALT Alkaline Phosphatase Troponin T C-Reactive Protein Total Protein Albumin Triglycerides Cholesterol LDL Cholesterol Direct HDL Cholesterol Urine WBC (Auto) Urine Creatinine Urine Total Protein Vancomycin Trough Rheumatoid Factor Complement C4 Miscellaneous Test Crossmatch 09/09/16 09/09/16 09/09/16 03:00 03:00 04:04 WBC 27.9 H RBC Hgb 8.7 L Hct 28.1 L MCV 72 L MCH 22 L MCHC RDW 18.4 H Plt Count 485 H Lymph % (Auto) [place] % (Auto) Lymph # [place] # Baso # Seg Neutrophils % Seg Neuts % (Manual) 77.0 H Lymphocytes % (Manual) 9.0 L Monocytes % (Manual) Eosinophils % (Manual) Basophils % (Manual) Nucleated RBC % Seg Neutrophils # Seg Neutrophils # Man 21.5 H Lymphocytes # (Manual) Monocytes # (Manual) 2.0 H Eosinophils # (Manual) PT INR Fibrinogen dRVVT Confirm Interp Factor V Activity POC ABG pH POC ABG pCO2 POC ABG pO2 121 H Sodium 135 L Potassium Chloride 96.3 L Carbon Dioxide 21 L BUN 83 H Creatinine 3.0 H Glucose 135 H POC Glucose Lactic Acid Calcium Phosphorus Magnesium Direct Bilirubin ALT Alkaline Phosphatase Troponin T C-Reactive Protein Total Protein Albumin Triglycerides Cholesterol LDL Cholesterol Direct HDL Cholesterol Urine WBC (Auto) Urine Creatinine Urine Total Protein Vancomycin Trough Rheumatoid Factor Complement C4 Miscellaneous Test Crossmatch 09/09/16 09/09/16 09/09/16 05:41 11:55 14:13 WBC RBC Hgb Hct MCV MCH MCHC RDW Plt Count Lymph % (Auto) [place] % (Auto) Lymph # [place] # Baso # Seg Neutrophils % Seg Neuts % (Manual) Lymphocytes % (Manual) Monocytes % (Manual) Eosinophils % (Manual) Basophils % (Manual) Nucleated RBC % Seg Neutrophils # Seg Neutrophils # Man Lymphocytes # (Manual) Monocytes # (Manual) Eosinophils # (Manual) PT INR Fibrinogen dRVVT Confirm Interp Factor V Activity POC ABG pH POC ABG pCO2 POC ABG pO2 Sodium Potassium Chloride Carbon Dioxide BUN Creatinine Glucose POC Glucose 155 H 186 H Lactic Acid Calcium Phosphorus Magnesium Direct Bilirubin ALT Alkaline Phosphatase Troponin T C-Reactive Protein Total Protein Albumin Triglycerides Cholesterol LDL Cholesterol Direct HDL Cholesterol Urine WBC (Auto) 25.0 H Urine Creatinine Urine Total Protein Vancomycin Trough Rheumatoid Factor Complement C4 Miscellaneous Test Crossmatch 09/09/16 09/09/16 09/10/16 17:33 23:13 05:09 WBC RBC Hgb Hct MCV MCH MCHC RDW Plt Count Lymph % (Auto) [place] % (Auto) Lymph # [place] # Baso # Seg Neutrophils % Seg Neuts % (Manual) Lymphocytes % (Manual) Monocytes % (Manual) Eosinophils % (Manual) Basophils % (Manual) Nucleated RBC % Seg Neutrophils # Seg Neutrophils # Man Lymphocytes # (Manual) Monocytes # (Manual) Eosinophils # (Manual) PT INR Fibrinogen dRVVT Confirm Interp Factor V Activity POC ABG pH POC ABG pCO2 POC ABG pO2 74 L Sodium Potassium Chloride Carbon Dioxide BUN Creatinine Glucose POC Glucose 211 H 215 H Lactic Acid Calcium Phosphorus Magnesium Direct Bilirubin ALT Alkaline Phosphatase Troponin T C-Reactive Protein Total Protein Albumin Triglycerides Cholesterol LDL Cholesterol Direct HDL Cholesterol Urine WBC (Auto) Urine Creatinine Urine Total Protein Vancomycin Trough Rheumatoid Factor Complement C4 Miscellaneous Test Crossmatch 09/10/16 09/10/16 09/10/16 05:17 05:17 11:31 WBC 15.8 H RBC 3.25 L Hgb 7.3 L Hct 22.9 L MCV 71 L MCH 23 L MCHC RDW 18.4 H Plt Count Lymph % (Auto) [place] % (Auto) Lymph # [place] # Baso # Seg Neutrophils % Seg Neuts % (Manual) 91.0 H Lymphocytes % (Manual) 4.0 L Monocytes % (Manual) Eosinophils % (Manual) Basophils % (Manual) Nucleated RBC % Seg Neutrophils # Seg Neutrophils # Man 14.4 H Lymphocytes # (Manual) 0.6 L Monocytes # (Manual) Eosinophils # (Manual) PT INR Fibrinogen dRVVT Confirm Interp Factor V Activity POC ABG pH POC ABG pCO2 POC ABG pO2 Sodium Potassium Chloride Carbon Dioxide 21 L BUN 93 H Creatinine 2.9 H Glucose 146 H POC Glucose 188 H Lactic Acid Calcium 8.1 L Phosphorus Magnesium Direct Bilirubin ALT Alkaline Phosphatase Troponin T C-Reactive Protein Total Protein Albumin Triglycerides Cholesterol LDL Cholesterol Direct HDL Cholesterol Urine WBC (Auto) Urine Creatinine Urine Total Protein Vancomycin Trough Rheumatoid Factor Complement C4 Miscellaneous Test Crossmatch 09/10/16 09/10/16 09/10/16 13:17 17:20 23:32 WBC RBC Hgb Hct MCV MCH MCHC RDW Plt Count Lymph % (Auto) [place] % (Auto) Lymph # [place] # Baso # Seg Neutrophils % Seg Neuts % (Manual) Lymphocytes % (Manual) Monocytes % (Manual) Eosinophils % (Manual) Basophils % (Manual) Nucleated RBC % Seg Neutrophils # Seg Neutrophils # Man Lymphocytes # (Manual) Monocytes # (Manual) Eosinophils # (Manual) PT INR Fibrinogen dRVVT Confirm Interp Factor V Activity POC ABG pH POC ABG pCO2 POC ABG pO2 Sodium Potassium Chloride Carbon Dioxide BUN Creatinine Glucose POC Glucose 199 H 186 H Lactic Acid Calcium Phosphorus Magnesium Direct Bilirubin ALT Alkaline Phosphatase Troponin T C-Reactive Protein Total Protein Albumin Triglycerides Cholesterol LDL Cholesterol Direct HDL Cholesterol Urine WBC (Auto) Urine Creatinine Urine Total Protein Vancomycin Trough Rheumatoid Factor Complement C4 Miscellaneous Test Crossmatch See Detail 09/11/16 09/11/16 09/11/16 05:10 05:10 05:17 WBC 28.4 H RBC Hgb 9.2 L Hct 29.3 L D MCV 73 L MCH 23 L MCHC RDW 18.9 H Plt Count 452 H Lymph % (Auto) [place] % (Auto) Lymph # [place] # Baso # Seg Neutrophils % Seg Neuts % (Manual) 89.5 H Lymphocytes % (Manual) 2.0 L Monocytes % (Manual) Eosinophils % (Manual) Basophils % (Manual) Nucleated RBC % Seg Neutrophils # Seg Neutrophils # Man 25.4 H Lymphocytes # (Manual) 0.6 L Monocytes # (Manual) 1.3 H Eosinophils # (Manual) PT INR Fibrinogen dRVVT Confirm Interp Factor V Activity POC ABG pH POC ABG pCO2 POC ABG pO2 Sodium 136 L Potassium Chloride Carbon Dioxide 18 L BUN 107 H Creatinine 2.6 H Glucose 187 H POC Glucose 230 H Lactic Acid Calcium 8.3 L Phosphorus Magnesium Direct Bilirubin ALT Alkaline Phosphatase Troponin T C-Reactive Protein Total Protein Albumin Triglycerides Cholesterol LDL Cholesterol Direct HDL Cholesterol Urine WBC (Auto) Urine Creatinine Urine Total Protein Vancomycin Trough Rheumatoid Factor Complement C4 Miscellaneous Test Crossmatch 09/11/16 09/11/16 09/11/16 05:55 12:02 17:32 WBC RBC Hgb Hct MCV MCH MCHC RDW Plt Count Lymph % (Auto) [place] % (Auto) Lymph # [place] # Baso # Seg Neutrophils % Seg Neuts % (Manual) Lymphocytes % (Manual) Monocytes % (Manual) Eosinophils % (Manual) Basophils % (Manual) Nucleated RBC % Seg Neutrophils # Seg Neutrophils # Man Lymphocytes # (Manual) Monocytes # (Manual) Eosinophils # (Manual) PT INR Fibrinogen dRVVT Confirm Interp Factor V Activity POC ABG pH POC ABG pCO2 33.8 L POC ABG pO2 Sodium Potassium Chloride Carbon Dioxide BUN Creatinine Glucose POC Glucose 191 H 239 H Lactic Acid Calcium Phosphorus Magnesium Direct Bilirubin ALT Alkaline Phosphatase Troponin T C-Reactive Protein Total Protein Albumin Triglycerides Cholesterol LDL Cholesterol Direct HDL Cholesterol Urine WBC (Auto) Urine Creatinine Urine Total Protein Vancomycin Trough Rheumatoid Factor Complement C4 Miscellaneous Test Crossmatch 09/11/16 09/12/16 09/12/16 23:52 05:09 05:32 WBC RBC Hgb Hct MCV MCH MCHC RDW Plt Count Lymph % (Auto) [place] % (Auto) Lymph # [place] # Baso # Seg Neutrophils % Seg Neuts % (Manual) Lymphocytes % (Manual) Monocytes % (Manual) Eosinophils % (Manual) Basophils % (Manual) Nucleated RBC % Seg Neutrophils # Seg Neutrophils # Man Lymphocytes # (Manual) Monocytes # (Manual) Eosinophils # (Manual) PT INR Fibrinogen dRVVT Confirm Interp Factor V Activity POC ABG pH POC ABG pCO2 34.6 L POC ABG pO2 Sodium Potassium Chloride Carbon Dioxide BUN Creatinine Glucose POC Glucose 265 H 184 H Lactic Acid Calcium Phosphorus Magnesium Direct Bilirubin ALT Alkaline Phosphatase Troponin T C-Reactive Protein Total Protein Albumin Triglycerides Cholesterol LDL Cholesterol Direct HDL Cholesterol Urine WBC (Auto) Urine Creatinine Urine Total Protein Vancomycin Trough Rheumatoid Factor Complement C4 Miscellaneous Test Crossmatch 09/12/16 09/12/16 09/12/16 06:45 06:45 07:22 WBC 31.7 H RBC 3.54 L Hgb 8.3 L Hct 25.9 L MCV 73 L MCH 23 L MCHC RDW 18.9 H Plt Count Lymph % (Auto) [place] % (Auto) Lymph # [place] # Baso # Seg Neutrophils % Seg Neuts % (Manual) 88.5 H Lymphocytes % (Manual) 4.5 L Monocytes % (Manual) Eosinophils % (Manual) Basophils % (Manual) Nucleated RBC % Seg Neutrophils # Seg Neutrophils # Man 28.1 H Lymphocytes # (Manual) Monocytes # (Manual) 1.0 H Eosinophils # (Manual) PT INR Fibrinogen dRVVT Confirm Interp Factor V Activity POC ABG pH POC ABG pCO2 POC ABG pO2 Sodium Potassium Chloride Carbon Dioxide 20 L BUN 115 H Creatinine 2.7 H Glucose 165 H POC Glucose Lactic Acid Calcium 8.0 L Phosphorus Magnesium Direct Bilirubin ALT Alkaline Phosphatase Troponin T C-Reactive Protein Total Protein Albumin Triglycerides 217 H Cholesterol LDL Cholesterol Direct HDL Cholesterol Urine WBC (Auto) Urine Creatinine Urine Total Protein Vancomycin Trough Rheumatoid Factor Complement C4 Miscellaneous Test Crossmatch 09/12/16 09/12/16 09/12/16 07:22 09:59 12:21 WBC RBC Hgb Hct MCV MCH MCHC RDW Plt Count Lymph % (Auto) [place] % (Auto) Lymph # [place] # Baso # Seg Neutrophils % Seg Neuts % (Manual) Lymphocytes % (Manual) Monocytes % (Manual) Eosinophils % (Manual) Basophils % (Manual) Nucleated RBC % Seg Neutrophils # Seg Neutrophils # Man Lymphocytes # (Manual) Monocytes # (Manual) Eosinophils # (Manual) PT INR Fibrinogen dRVVT Confirm Interp Positive H Factor V Activity POC ABG pH POC ABG pCO2 POC ABG pO2 Sodium Potassium Chloride Carbon Dioxide BUN Creatinine Glucose POC Glucose 224 H Lactic Acid Calcium Phosphorus Magnesium Direct Bilirubin ALT Alkaline Phosphatase Troponin T C-Reactive Protein 1.70 H Total Protein Albumin Triglycerides Cholesterol LDL Cholesterol Direct HDL Cholesterol Urine WBC (Auto) Urine Creatinine Urine Total Protein Vancomycin Trough Rheumatoid Factor Complement C4 Miscellaneous Test Crossmatch 09/12/16 09/12/16 09/13/16 16:51 23:28 04:00 WBC 45.0 H* RBC Hgb 9.4 L Hct MCV 75 L MCH 23 L MCHC RDW 19.0 H Plt Count 470 H Lymph % (Auto) [place] % (Auto) Lymph # [place] # Baso # Seg Neutrophils % Seg Neuts % (Manual) 89.0 H Lymphocytes % (Manual) 5.0 L Monocytes % (Manual) Eosinophils % (Manual) Basophils % (Manual) Nucleated RBC % Seg Neutrophils # Seg Neutrophils # Man 40.1 H Lymphocytes # (Manual) Monocytes # (Manual) Eosinophils # (Manual) PT INR Fibrinogen dRVVT Confirm Interp Factor V Activity POC ABG pH POC ABG pCO2 POC ABG pO2 Sodium Potassium Chloride Carbon Dioxide BUN Creatinine Glucose POC Glucose 169 H 150 H Lactic Acid Calcium Phosphorus Magnesium Direct Bilirubin ALT Alkaline Phosphatase Troponin T C-Reactive Protein Total Protein Albumin Triglycerides Cholesterol LDL Cholesterol Direct HDL Cholesterol Urine WBC (Auto) Urine Creatinine Urine Total Protein Vancomycin Trough Rheumatoid Factor Complement C4 Miscellaneous Test Crossmatch 09/13/16 09/13/16 09/13/16 04:00 11:26 17:31 WBC RBC Hgb Hct MCV MCH MCHC RDW Plt Count Lymph % (Auto) [place] % (Auto) Lymph # [place] # Baso # Seg Neutrophils % Seg Neuts % (Manual) Lymphocytes % (Manual) Monocytes % (Manual) Eosinophils % (Manual) Basophils % (Manual) Nucleated RBC % Seg Neutrophils # Seg Neutrophils # Man Lymphocytes # (Manual) Monocytes # (Manual) Eosinophils # (Manual) PT INR Fibrinogen dRVVT Confirm Interp Factor V Activity POC ABG pH POC ABG pCO2 POC ABG pO2 Sodium Potassium Chloride Carbon Dioxide 20 L BUN 116 H Creatinine 3.0 H Glucose 172 H POC Glucose 140 H 183 H Lactic Acid Calcium Phosphorus Magnesium Direct Bilirubin ALT Alkaline Phosphatase Troponin T C-Reactive Protein Total Protein 6.2 L Albumin 2.9 L Triglycerides Cholesterol LDL Cholesterol Direct HDL Cholesterol Urine WBC (Auto) Urine Creatinine Urine Total Protein Vancomycin Trough Rheumatoid Factor Complement C4 Miscellaneous Test Crossmatch 09/13/16 09/14/16 09/14/16 23:23 04:06 04:07 WBC 29.4 H RBC Hgb 8.9 L Hct 27.3 L MCV 75 L MCH 24 L MCHC RDW 19.1 H Plt Count Lymph % (Auto) [place] % (Auto) Lymph # [place] # Baso # Seg Neutrophils % Seg Neuts % (Manual) 84.0 H Lymphocytes % (Manual) 6.0 L Monocytes % (Manual) 9.0 H Eosinophils % (Manual) Basophils % (Manual) Nucleated RBC % Seg Neutrophils # Seg Neutrophils # Man 24.7 H Lymphocytes # (Manual) Monocytes # (Manual) 2.6 H Eosinophils # (Manual) PT INR Fibrinogen dRVVT Confirm Interp Factor V Activity POC ABG pH 7.342 L POC ABG pCO2 POC ABG pO2 116 H Sodium Potassium Chloride Carbon Dioxide BUN Creatinine Glucose POC Glucose 154 H Lactic Acid Calcium Phosphorus Magnesium Direct Bilirubin ALT Alkaline Phosphatase Troponin T C-Reactive Protein Total Protein Albumin Triglycerides Cholesterol LDL Cholesterol Direct HDL Cholesterol Urine WBC (Auto) Urine Creatinine Urine Total Protein Vancomycin Trough Rheumatoid Factor Complement C4 Miscellaneous Test Crossmatch 09/14/16 09/14/16 09/14/16 04:07 05:29 12:19 WBC RBC Hgb Hct MCV MCH MCHC RDW Plt Count Lymph % (Auto) [place] % (Auto) Lymph # [place] # Baso # Seg Neutrophils % Seg Neuts % (Manual) Lymphocytes % (Manual) Monocytes % (Manual) Eosinophils % (Manual) Basophils % (Manual) Nucleated RBC % Seg Neutrophils # Seg Neutrophils # Man Lymphocytes # (Manual) Monocytes # (Manual) Eosinophils # (Manual) PT INR Fibrinogen dRVVT Confirm Interp Factor V Activity POC ABG pH POC ABG pCO2 POC ABG pO2 Sodium 136 L Potassium Chloride Carbon Dioxide 18 L BUN 121 H Creatinine 2.8 H Glucose 214 H POC Glucose 239 H 181 H Lactic Acid Calcium Phosphorus Magnesium Direct Bilirubin ALT Alkaline Phosphatase Troponin T C-Reactive Protein Total Protein Albumin Triglycerides Cholesterol LDL Cholesterol Direct HDL Cholesterol Urine WBC (Auto) Urine Creatinine Urine Total Protein Vancomycin Trough Rheumatoid Factor Complement C4 Miscellaneous Test Crossmatch 09/14/16 09/14/16 09/15/16 18:12 23:37 05:00 WBC 26.1 H RBC 3.05 L Hgb 7.2 L Hct 22.9 L MCV 75 L MCH 24 L MCHC RDW 19.0 H Plt Count Lymph % (Auto) [place] % (Auto) Lymph # [place] # Baso # Seg Neutrophils % Seg Neuts % (Manual) Lymphocytes % (Manual) Monocytes % (Manual) Eosinophils % (Manual) Basophils % (Manual) Nucleated RBC % Seg Neutrophils # Seg Neutrophils # Man Lymphocytes # (Manual) Monocytes # (Manual) Eosinophils # (Manual) PT INR Fibrinogen dRVVT Confirm Interp Factor V Activity POC ABG pH POC ABG pCO2 POC ABG pO2 Sodium Potassium Chloride Carbon Dioxide BUN Creatinine Glucose POC Glucose 266 H 154 H Lactic Acid Calcium Phosphorus Magnesium Direct Bilirubin ALT Alkaline Phosphatase Troponin T C-Reactive Protein Total Protein Albumin Triglycerides Cholesterol LDL Cholesterol Direct HDL Cholesterol Urine WBC (Auto) Urine Creatinine Urine Total Protein Vancomycin Trough Rheumatoid Factor Complement C4 Miscellaneous Test Crossmatch 09/15/16 09/15/16 09/15/16 05:00 05:17 12:45 WBC RBC Hgb Hct MCV MCH MCHC RDW Plt Count Lymph % (Auto) [place] % (Auto) Lymph # [place] # Baso # Seg Neutrophils % Seg Neuts % (Manual) Lymphocytes % (Manual) Monocytes % (Manual) Eosinophils % (Manual) Basophils % (Manual) Nucleated RBC % Seg Neutrophils # Seg Neutrophils # Man Lymphocytes # (Manual) Monocytes # (Manual) Eosinophils # (Manual) PT INR Fibrinogen dRVVT Confirm Interp Factor V Activity POC ABG pH POC ABG pCO2 POC ABG pO2 Sodium Potassium 5.2 H Chloride Carbon Dioxide 18 L BUN 139 H Creatinine 3.7 H Glucose 227 H POC Glucose 226 H 244 H Lactic Acid Calcium 8.3 L Phosphorus Magnesium Direct Bilirubin ALT Alkaline Phosphatase Troponin T C-Reactive Protein Total Protein Albumin Triglycerides Cholesterol LDL Cholesterol Direct HDL Cholesterol Urine WBC (Auto) Urine Creatinine Urine Total Protein Vancomycin Trough Rheumatoid Factor Complement C4 Miscellaneous Test Crossmatch 09/15/16 09/15/16 09/15/16 14:32 17:33 23:35 WBC RBC Hgb Hct MCV MCH MCHC RDW Plt Count Lymph % (Auto) [place] % (Auto) Lymph # [place] # Baso # Seg Neutrophils % Seg Neuts % (Manual) Lymphocytes % (Manual) Monocytes % (Manual) Eosinophils % (Manual) Basophils % (Manual) Nucleated RBC % Seg Neutrophils # Seg Neutrophils # Man Lymphocytes # (Manual) Monocytes # (Manual) Eosinophils # (Manual) PT INR Fibrinogen dRVVT Confirm Interp Factor V Activity POC ABG pH POC ABG pCO2 27.7 L POC ABG pO2 120 H Sodium Potassium Chloride Carbon Dioxide BUN Creatinine Glucose POC Glucose 232 H 167 H Lactic Acid Calcium Phosphorus Magnesium Direct Bilirubin ALT Alkaline Phosphatase Troponin T C-Reactive Protein Total Protein Albumin Triglycerides Cholesterol LDL Cholesterol Direct HDL Cholesterol Urine WBC (Auto) Urine Creatinine Urine Total Protein Vancomycin Trough Rheumatoid Factor Complement C4 Miscellaneous Test Crossmatch 09/16/16 09/16/16 09/16/16 03:58 10:27 10:27 WBC 19.0 H RBC 2.77 L Hgb 6.5 L Hct 20.9 L MCV 76 L MCH 23 L MCHC RDW 19.3 H Plt Count Lymph % (Auto) 11.0 L [place] % (Auto) Lymph # [place] # 1.1 H Baso # Seg Neutrophils % 82.5 H Seg Neuts % (Manual) Lymphocytes % (Manual) Monocytes % (Manual) Eosinophils % (Manual) Basophils % (Manual) Nucleated RBC % Seg Neutrophils # 15.7 H Seg Neutrophils # Man Lymphocytes # (Manual) Monocytes # (Manual) Eosinophils # (Manual) PT INR Fibrinogen dRVVT Confirm Interp Factor V Activity POC ABG pH POC ABG pCO2 POC ABG pO2 Sodium Potassium Chloride 109.3 H Carbon Dioxide 18 L BUN 139 H Creatinine 4.1 H Glucose 144 H POC Glucose 146 H Lactic Acid Calcium 8.1 L Phosphorus Magnesium Direct Bilirubin ALT Alkaline Phosphatase Troponin T C-Reactive Protein Total Protein Albumin Triglycerides Cholesterol LDL Cholesterol Direct HDL Cholesterol Urine WBC (Auto) Urine Creatinine Urine Total Protein Vancomycin Trough Rheumatoid Factor Complement C4 Miscellaneous Test Crossmatch 09/16/16 09/16/16 09/16/16 12:04 12:10 13:55 WBC RBC Hgb Hct MCV MCH MCHC RDW Plt Count Lymph % (Auto) [place] % (Auto) Lymph # [place] # Baso # Seg Neutrophils % Seg Neuts % (Manual) Lymphocytes % (Manual) Monocytes % (Manual) Eosinophils % (Manual) Basophils % (Manual) Nucleated RBC % Seg Neutrophils # Seg Neutrophils # Man Lymphocytes # (Manual) Monocytes # (Manual) Eosinophils # (Manual) PT INR Fibrinogen dRVVT Confirm Interp Factor V Activity POC ABG pH POC ABG pCO2 32.9 L POC ABG pO2 Sodium Potassium Chloride Carbon Dioxide BUN Creatinine Glucose POC Glucose 185 H Lactic Acid Calcium Phosphorus Magnesium Direct Bilirubin ALT Alkaline Phosphatase Troponin T C-Reactive Protein Total Protein Albumin Triglycerides Cholesterol LDL Cholesterol Direct HDL Cholesterol Urine WBC (Auto) Urine Creatinine Urine Total Protein Vancomycin Trough Rheumatoid Factor Complement C4 Miscellaneous Test Crossmatch See Detail 09/16/16 09/16/16 09/16/16 17:55 19:19 23:48 WBC RBC Hgb Hct MCV MCH MCHC RDW Plt Count Lymph % (Auto) [place] % (Auto) Lymph # [place] # Baso # Seg Neutrophils % Seg Neuts % (Manual) Lymphocytes % (Manual) Monocytes % (Manual) Eosinophils % (Manual) Basophils % (Manual) Nucleated RBC % Seg Neutrophils # Seg Neutrophils # Man Lymphocytes # (Manual) Monocytes # (Manual) Eosinophils # (Manual) PT INR Fibrinogen dRVVT Confirm Interp Factor V Activity POC ABG pH POC ABG pCO2 POC ABG pO2 Sodium Potassium Chloride Carbon Dioxide BUN Creatinine Glucose POC Glucose 222 H 107 H Lactic Acid Calcium Phosphorus Magnesium Direct Bilirubin ALT Alkaline Phosphatase Troponin T C-Reactive Protein Total Protein Albumin Triglycerides Cholesterol LDL Cholesterol Direct HDL Cholesterol Urine WBC (Auto) Urine Creatinine 47.4 H Urine Total Protein 16 H Vancomycin Trough Rheumatoid Factor Complement C4 Miscellaneous Test Crossmatch 09/17/16 09/17/16 09/17/16 03:45 03:45 04:55 WBC 19.6 H RBC 3.41 L Hgb 8.5 L Hct 26.7 L MCV 78 L MCH 25 L MCHC RDW 19.9 H Plt Count Lymph % (Auto) 9.3 L [place] % (Auto) Lymph # [place] # 1.2 H Baso # Seg Neutrophils % 83.9 H Seg Neuts % (Manual) Lymphocytes % (Manual) Monocytes % (Manual) Eosinophils % (Manual) Basophils % (Manual) Nucleated RBC % Seg Neutrophils # 16.4 H Seg Neutrophils # Man Lymphocytes # (Manual) Monocytes # (Manual) Eosinophils # (Manual) PT INR Fibrinogen dRVVT Confirm Interp Factor V Activity POC ABG pH POC ABG pCO2 POC ABG pO2 Sodium 146 H Potassium 5.1 H Chloride 110.9 H Carbon Dioxide 16 L BUN 146 H Creatinine 4.0 H Glucose 108 H POC Glucose 133 H Lactic Acid Calcium Phosphorus Magnesium 3.00 H Direct Bilirubin ALT Alkaline Phosphatase Troponin T C-Reactive Protein Total Protein Albumin Triglycerides Cholesterol LDL Cholesterol Direct HDL Cholesterol Urine WBC (Auto) Urine Creatinine Urine Total Protein Vancomycin Trough Rheumatoid Factor Complement C4 Miscellaneous Test Crossmatch 09/17/16 09/17/16 09/17/16 11:15 17:33 23:47 WBC RBC Hgb Hct MCV MCH MCHC RDW Plt Count Lymph % (Auto) [place] % (Auto) Lymph # [place] # Baso # Seg Neutrophils % Seg Neuts % (Manual) Lymphocytes % (Manual) Monocytes % (Manual) Eosinophils % (Manual) Basophils % (Manual) Nucleated RBC % Seg Neutrophils # Seg Neutrophils # Man Lymphocytes # (Manual) Monocytes # (Manual) Eosinophils # (Manual) PT INR Fibrinogen dRVVT Confirm Interp Factor V Activity POC ABG pH POC ABG pCO2 POC ABG pO2 Sodium Potassium Chloride Carbon Dioxide BUN Creatinine Glucose POC Glucose 176 H 246 H 148 H Lactic Acid Calcium Phosphorus Magnesium Direct Bilirubin ALT Alkaline Phosphatase Troponin T C-Reactive Protein Total Protein Albumin Triglycerides Cholesterol LDL Cholesterol Direct HDL Cholesterol Urine WBC (Auto) Urine Creatinine Urine Total Protein Vancomycin Trough Rheumatoid Factor Complement C4 Miscellaneous Test Crossmatch 09/18/16 09/18/16 09/18/16 05:33 08:31 08:31 WBC 18.0 H RBC 3.17 L Hgb 9.0 L Hct 25.7 L MCV MCH MCHC 35 H RDW 20.4 H Plt Count Lymph % (Auto) [place] % (Auto) Lymph # [place] # Baso # Seg Neutrophils % Seg Neuts % (Manual) Lymphocytes % (Manual) Monocytes % (Manual) Eosinophils % (Manual) Basophils % (Manual) Nucleated RBC % Seg Neutrophils # Seg Neutrophils # Man Lymphocytes # (Manual) Monocytes # (Manual) Eosinophils # (Manual) PT INR Fibrinogen dRVVT Confirm Interp Factor V Activity POC ABG pH POC ABG pCO2 POC ABG pO2 Sodium Potassium Chloride Carbon Dioxide 15 L BUN 124 H Creatinine 3.8 H Glucose POC Glucose 120 H Lactic Acid Calcium 8.1 L Phosphorus Magnesium Direct Bilirubin ALT Alkaline Phosphatase Troponin T C-Reactive Protein Total Protein Albumin Triglycerides Cholesterol LDL Cholesterol Direct HDL Cholesterol Urine WBC (Auto) Urine Creatinine Urine Total Protein Vancomycin Trough Rheumatoid Factor Complement C4 Miscellaneous Test Crossmatch 09/18/16 09/18/16 09/18/16 12:03 15:34 17:50 WBC RBC Hgb Hct MCV MCH MCHC RDW Plt Count Lymph % (Auto) [place] % (Auto) Lymph # [place] # Baso # Seg Neutrophils % Seg Neuts % (Manual) Lymphocytes % (Manual) Monocytes % (Manual) Eosinophils % (Manual) Basophils % (Manual) Nucleated RBC % Seg Neutrophils # Seg Neutrophils # Man Lymphocytes # (Manual) Monocytes # (Manual) Eosinophils # (Manual) PT INR Fibrinogen dRVVT Confirm Interp Factor V Activity POC ABG pH POC ABG pCO2 25.7 L POC ABG pO2 66 L Sodium Potassium Chloride Carbon Dioxide BUN Creatinine Glucose POC Glucose 156 H 220 H Lactic Acid Calcium Phosphorus Magnesium Direct Bilirubin ALT Alkaline Phosphatase Troponin T C-Reactive Protein Total Protein Albumin Triglycerides Cholesterol LDL Cholesterol Direct HDL Cholesterol Urine WBC (Auto) Urine Creatinine Urine Total Protein Vancomycin Trough Rheumatoid Factor Complement C4 Miscellaneous Test Crossmatch 09/19/16 09/19/16 09/19/16 06:21 09:50 09:50 WBC 17.1 H RBC 3.49 L Hgb 9.0 L Hct 28.1 L MCV MCH 26 L MCHC RDW 20.8 H Plt Count Lymph % (Auto) 11.5 L [place] % (Auto) 7.5 H Lymph # [place] # 1.3 H Baso # Seg Neutrophils % 79.8 H Seg Neuts % (Manual) Lymphocytes % (Manual) Monocytes % (Manual) Eosinophils % (Manual) Basophils % (Manual) Nucleated RBC % Seg Neutrophils # 13.7 H Seg Neutrophils # Man Lymphocytes # (Manual) Monocytes # (Manual) Eosinophils # (Manual) PT INR Fibrinogen dRVVT Confirm Interp Factor V Activity POC ABG pH POC ABG pCO2 POC ABG pO2 Sodium Potassium Chloride 108.6 H Carbon Dioxide 15 L BUN 125 H Creatinine 4.1 H Glucose 124 H POC Glucose 119 H Lactic Acid Calcium Phosphorus Magnesium Direct Bilirubin ALT Alkaline Phosphatase Troponin T C-Reactive Protein Total Protein Albumin Triglycerides Cholesterol LDL Cholesterol Direct HDL Cholesterol Urine WBC (Auto) Urine Creatinine Urine Total Protein Vancomycin Trough Rheumatoid Factor Complement C4 Miscellaneous Test Crossmatch 09/19/16 09/19/16 09/19/16 11:25 17:53 23:36 WBC RBC Hgb Hct MCV MCH MCHC RDW Plt Count Lymph % (Auto) [place] % (Auto) Lymph # [place] # Baso # Seg Neutrophils % Seg Neuts % (Manual) Lymphocytes % (Manual) Monocytes % (Manual) Eosinophils % (Manual) Basophils % (Manual) Nucleated RBC % Seg Neutrophils # Seg Neutrophils # Man Lymphocytes # (Manual) Monocytes # (Manual) Eosinophils # (Manual) PT INR Fibrinogen dRVVT Confirm Interp Factor V Activity POC ABG pH POC ABG pCO2 POC ABG pO2 Sodium Potassium Chloride Carbon Dioxide BUN Creatinine Glucose POC Glucose 160 H 245 H 121 H Lactic Acid Calcium Phosphorus Magnesium Direct Bilirubin ALT Alkaline Phosphatase Troponin T C-Reactive Protein Total Protein Albumin Triglycerides Cholesterol LDL Cholesterol Direct HDL Cholesterol Urine WBC (Auto) Urine Creatinine Urine Total Protein Vancomycin Trough Rheumatoid Factor Complement C4 Miscellaneous Test Crossmatch 09/20/16 09/20/16 09/20/16 04:10 04:10 04:10 WBC 17.0 H RBC 3.21 L Hgb 8.2 L Hct 25.5 L MCV MCH 26 L MCHC RDW 20.9 H Plt Count Lymph % (Auto) [place] % (Auto) Lymph # [place] # Baso # Seg Neutrophils % Seg Neuts % (Manual) Lymphocytes % (Manual) Monocytes % (Manual) Eosinophils % (Manual) Basophils % (Manual) Nucleated RBC % Seg Neutrophils # Seg Neutrophils # Man Lymphocytes # (Manual) Monocytes # (Manual) Eosinophils # (Manual) PT INR Fibrinogen dRVVT Confirm Interp Factor V Activity POC ABG pH POC ABG pCO2 POC ABG pO2 Sodium Potassium Chloride 111.0 H Carbon Dioxide 16 L BUN 129 H Creatinine 3.7 H Glucose 115 H POC Glucose Lactic Acid Calcium 8.2 L Phosphorus Magnesium Direct Bilirubin ALT Alkaline Phosphatase Troponin T C-Reactive Protein Total Protein Albumin Triglycerides 243 H Cholesterol LDL Cholesterol Direct HDL Cholesterol Urine WBC (Auto) Urine Creatinine Urine Total Protein Vancomycin Trough Rheumatoid Factor Complement C4 Miscellaneous Test Crossmatch 09/20/16 09/20/16 09/20/16 05:40 11:52 16:50 WBC RBC Hgb Hct MCV MCH MCHC RDW Plt Count Lymph % (Auto) [place] % (Auto) Lymph # [place] # Baso # Seg Neutrophils % Seg Neuts % (Manual) Lymphocytes % (Manual) Monocytes % (Manual) Eosinophils % (Manual) Basophils % (Manual) Nucleated RBC % Seg Neutrophils # Seg Neutrophils # Man Lymphocytes # (Manual) Monocytes # (Manual) Eosinophils # (Manual) PT INR Fibrinogen dRVVT Confirm Interp Factor V Activity POC ABG pH POC ABG pCO2 POC ABG pO2 Sodium Potassium Chloride Carbon Dioxide BUN Creatinine Glucose POC Glucose 131 H 183 H 236 H Lactic Acid Calcium Phosphorus Magnesium Direct Bilirubin ALT Alkaline Phosphatase Troponin T C-Reactive Protein Total Protein Albumin Triglycerides Cholesterol LDL Cholesterol Direct HDL Cholesterol Urine WBC (Auto) Urine Creatinine Urine Total Protein Vancomycin Trough Rheumatoid Factor Complement C4 Miscellaneous Test Crossmatch 09/20/16 09/21/16 09/21/16 23:51 03:30 04:44 WBC RBC Hgb Hct MCV MCH MCHC RDW Plt Count Lymph % (Auto) [place] % (Auto) Lymph # [place] # Baso # Seg Neutrophils % Seg Neuts % (Manual) Lymphocytes % (Manual) Monocytes % (Manual) Eosinophils % (Manual) Basophils % (Manual) Nucleated RBC % Seg Neutrophils # Seg Neutrophils # Man Lymphocytes # (Manual) Monocytes # (Manual) Eosinophils # (Manual) PT INR Fibrinogen dRVVT Confirm Interp Factor V Activity POC ABG pH POC ABG pCO2 POC ABG pO2 Sodium Potassium Chloride Carbon Dioxide BUN Creatinine Glucose POC Glucose 114 H 141 H Lactic Acid Calcium Phosphorus Magnesium 2.70 H Direct Bilirubin ALT Alkaline Phosphatase Troponin T C-Reactive Protein Total Protein Albumin Triglycerides Cholesterol LDL Cholesterol Direct HDL Cholesterol Urine WBC (Auto) Urine Creatinine Urine Total Protein Vancomycin Trough Rheumatoid Factor Complement C4 Miscellaneous Test Crossmatch 09/21/16 09/21/16 09/21/16 07:45 07:45 10:01 WBC 13.8 H RBC 2.94 L Hgb 7.5 L Hct 23.5 L MCV MCH 26 L MCHC RDW 21.2 H Plt Count Lymph % (Auto) 6.9 L [place] % (Auto) 9.4 H Lymph # 0.9 L [place] # 1.3 H Baso # Seg Neutrophils % 83.2 H Seg Neuts % (Manual) Lymphocytes % (Manual) Monocytes % (Manual) Eosinophils % (Manual) Basophils % (Manual) Nucleated RBC % Seg Neutrophils # 11.5 H Seg Neutrophils # Man Lymphocytes # (Manual) Monocytes # (Manual) Eosinophils # (Manual) PT INR Fibrinogen dRVVT Confirm Interp Factor V Activity POC ABG pH 7.308 L POC ABG pCO2 31.9 L POC ABG pO2 148 H Sodium 147 H Potassium Chloride 114.2 H Carbon Dioxide 15 L BUN 120 H Creatinine 3.9 H Glucose 156 H POC Glucose Lactic Acid Calcium 8.2 L Phosphorus Magnesium Direct Bilirubin ALT Alkaline Phosphatase Troponin T C-Reactive Protein Total Protein Albumin Triglycerides Cholesterol LDL Cholesterol Direct HDL Cholesterol Urine WBC (Auto) Urine Creatinine Urine Total Protein Vancomycin Trough Rheumatoid Factor Complement C4 Miscellaneous Test Crossmatch 09/21/16 09/21/16 09/21/16 12:00 12:03 13:00 WBC RBC Hgb Hct MCV MCH MCHC RDW Plt Count Lymph % (Auto) [place] % (Auto) Lymph # [place] # Baso # Seg Neutrophils % Seg Neuts % (Manual) Lymphocytes % (Manual) Monocytes % (Manual) Eosinophils % (Manual) Basophils % (Manual) Nucleated RBC % Seg Neutrophils # Seg Neutrophils # Man Lymphocytes # (Manual) Monocytes # (Manual) Eosinophils # (Manual) PT INR Fibrinogen dRVVT Confirm Interp Factor V Activity POC ABG pH POC ABG pCO2 POC ABG pO2 Sodium Potassium Chloride Carbon Dioxide BUN Creatinine Glucose POC Glucose 163 H Lactic Acid Calcium Phosphorus Magnesium Direct Bilirubin ALT Alkaline Phosphatase Troponin T C-Reactive Protein Total Protein Albumin Triglycerides Cholesterol LDL Cholesterol Direct HDL Cholesterol Urine WBC (Auto) Urine Creatinine 54.8 H Urine Total Protein Vancomycin Trough 2.3 L Rheumatoid Factor Complement C4 Miscellaneous Test Crossmatch 09/21/16 09/21/16 09/22/16 16:51 23:17 06:27 WBC RBC Hgb Hct MCV MCH MCHC RDW Plt Count Lymph % (Auto) [place] % (Auto) Lymph # [place] # Baso # Seg Neutrophils % Seg Neuts % (Manual) Lymphocytes % (Manual) Monocytes % (Manual) Eosinophils % (Manual) Basophils % (Manual) Nucleated RBC % Seg Neutrophils # Seg Neutrophils # Man Lymphocytes # (Manual) Monocytes # (Manual) Eosinophils # (Manual) PT INR Fibrinogen dRVVT Confirm Interp Factor V Activity POC ABG pH POC ABG pCO2 POC ABG pO2 Sodium Potassium Chloride Carbon Dioxide BUN Creatinine Glucose POC Glucose 206 H 114 H 115 H Lactic Acid Calcium Phosphorus Magnesium Direct Bilirubin ALT Alkaline Phosphatase Troponin T C-Reactive Protein Total Protein Albumin Triglycerides Cholesterol LDL Cholesterol Direct HDL Cholesterol Urine WBC (Auto) Urine Creatinine Urine Total Protein Vancomycin Trough Rheumatoid Factor Complement C4 Miscellaneous Test Crossmatch 09/22/16 09/22/16 09/22/16 07:50 07:50 12:00 WBC 17.8 H RBC 3.04 L Hgb 8.0 L Hct 24.7 L MCV MCH 26 L MCHC RDW 21.6 H Plt Count Lymph % (Auto) [place] % (Auto) Lymph # [place] # Baso # Seg Neutrophils % Seg Neuts % (Manual) Lymphocytes % (Manual) Monocytes % (Manual) Eosinophils % (Manual) Basophils % (Manual) Nucleated RBC % Seg Neutrophils # Seg Neutrophils # Man Lymphocytes # (Manual) Monocytes # (Manual) Eosinophils # (Manual) PT INR Fibrinogen dRVVT Confirm Interp Factor V Activity POC ABG pH POC ABG pCO2 POC ABG pO2 Sodium 150 H Potassium Chloride 118.2 H Carbon Dioxide 14 L BUN 111 H Creatinine 3.7 H Glucose 157 H POC Glucose 183 H Lactic Acid Calcium Phosphorus Magnesium Direct Bilirubin ALT Alkaline Phosphatase Troponin T C-Reactive Protein Total Protein Albumin Triglycerides Cholesterol LDL Cholesterol Direct HDL Cholesterol Urine WBC (Auto) Urine Creatinine Urine Total Protein Vancomycin Trough Rheumatoid Factor Complement C4 Miscellaneous Test Crossmatch 09/22/16 09/22/16 09/23/16 17:29 23:10 05:00 WBC 19.2 H RBC 3.13 L Hgb 8.0 L Hct 25.2 L MCV MCH 26 L MCHC RDW 22.1 H Plt Count Lymph % (Auto) [place] % (Auto) Lymph # [place] # Baso # Seg Neutrophils % Seg Neuts % (Manual) 92.0 H Lymphocytes % (Manual) 3.0 L Monocytes % (Manual) Eosinophils % (Manual) Basophils % (Manual) Nucleated RBC % Seg Neutrophils # Seg Neutrophils # Man 17.7 H Lymphocytes # (Manual) 0.6 L Monocytes # (Manual) Eosinophils # (Manual) PT INR Fibrinogen dRVVT Confirm Interp Factor V Activity POC ABG pH POC ABG pCO2 POC ABG pO2 Sodium Potassium Chloride Carbon Dioxide BUN Creatinine Glucose POC Glucose 197 H 169 H Lactic Acid Calcium Phosphorus Magnesium Direct Bilirubin ALT Alkaline Phosphatase Troponin T C-Reactive Protein Total Protein Albumin Triglycerides Cholesterol LDL Cholesterol Direct HDL Cholesterol Urine WBC (Auto) Urine Creatinine Urine Total Protein Vancomycin Trough Rheumatoid Factor Complement C4 Miscellaneous Test Crossmatch 09/23/16 09/23/16 09/23/16 05:00 05:00 05:10 WBC RBC Hgb Hct MCV MCH MCHC RDW Plt Count Lymph % (Auto) [place] % (Auto) Lymph # [place] # Baso # Seg Neutrophils % Seg Neuts % (Manual) Lymphocytes % (Manual) Monocytes % (Manual) Eosinophils % (Manual) Basophils % (Manual) Nucleated RBC % Seg Neutrophils # Seg Neutrophils # Man Lymphocytes # (Manual) Monocytes # (Manual) Eosinophils # (Manual) PT INR Fibrinogen dRVVT Confirm Interp Factor V Activity POC ABG pH POC ABG pCO2 POC ABG pO2 Sodium 147 H Potassium 3.2 L Chloride 115.7 H Carbon Dioxide 13 L BUN 111 H Creatinine 3.8 H Glucose 194 H POC Glucose 188 H Lactic Acid Calcium 7.3 L D Phosphorus Magnesium Direct Bilirubin ALT Alkaline Phosphatase Troponin T C-Reactive Protein 3.20 H Total Protein Albumin Triglycerides Cholesterol LDL Cholesterol Direct HDL Cholesterol Urine WBC (Auto) Urine Creatinine Urine Total Protein Vancomycin Trough Rheumatoid Factor Complement C4 Miscellaneous Test Crossmatch 09/23/16 09/23/16 09/23/16 11:37 12:29 18:01 WBC RBC Hgb Hct MCV MCH MCHC RDW Plt Count Lymph % (Auto) [place] % (Auto) Lymph # [place] # Baso # Seg Neutrophils % Seg Neuts % (Manual) Lymphocytes % (Manual) Monocytes % (Manual) Eosinophils % (Manual) Basophils % (Manual) Nucleated RBC % Seg Neutrophils # Seg Neutrophils # Man Lymphocytes # (Manual) Monocytes # (Manual) Eosinophils # (Manual) PT INR Fibrinogen dRVVT Confirm Interp Factor V Activity POC ABG pH POC ABG pCO2 18.9 L POC ABG pO2 143 H Sodium Potassium Chloride Carbon Dioxide BUN Creatinine Glucose POC Glucose 153 H 108 H Lactic Acid Calcium Phosphorus Magnesium Direct Bilirubin ALT Alkaline Phosphatase Troponin T C-Reactive Protein Total Protein Albumin Triglycerides Cholesterol LDL Cholesterol Direct HDL Cholesterol Urine WBC (Auto) Urine Creatinine Urine Total Protein Vancomycin Trough Rheumatoid Factor Complement C4 Miscellaneous Test Crossmatch 09/23/16 09/23/16 09/24/16 21:19 23:43 05:16 WBC RBC Hgb Hct MCV MCH MCHC RDW Plt Count Lymph % (Auto) [place] % (Auto) Lymph # [place] # Baso # Seg Neutrophils % Seg Neuts % (Manual) Lymphocytes % (Manual) Monocytes % (Manual) Eosinophils % (Manual) Basophils % (Manual) Nucleated RBC % Seg Neutrophils # Seg Neutrophils # Man Lymphocytes # (Manual) Monocytes # (Manual) Eosinophils # (Manual) PT INR Fibrinogen dRVVT Confirm Interp Factor V Activity POC ABG pH POC ABG pCO2 17.3 L POC ABG pO2 112 H Sodium Potassium Chloride Carbon Dioxide BUN Creatinine Glucose POC Glucose 143 H 164 H Lactic Acid Calcium Phosphorus Magnesium Direct Bilirubin ALT Alkaline Phosphatase Troponin T C-Reactive Protein Total Protein Albumin Triglycerides Cholesterol LDL Cholesterol Direct HDL Cholesterol Urine WBC (Auto) Urine Creatinine Urine Total Protein Vancomycin Trough Rheumatoid Factor Complement C4 Miscellaneous Test Crossmatch 09/24/16 09/24/16 09/24/16 05:21 11:58 17:06 WBC RBC Hgb Hct MCV MCH MCHC RDW Plt Count Lymph % (Auto) [place] % (Auto) Lymph # [place] # Baso # Seg Neutrophils % Seg Neuts % (Manual) Lymphocytes % (Manual) Monocytes % (Manual) Eosinophils % (Manual) Basophils % (Manual) Nucleated RBC % Seg Neutrophils # Seg Neutrophils # Man Lymphocytes # (Manual) Monocytes # (Manual) Eosinophils # (Manual) PT INR Fibrinogen dRVVT Confirm Interp Factor V Activity POC ABG pH POC ABG pCO2 POC ABG pO2 Sodium Potassium Chloride Carbon Dioxide 10 L BUN 103 H Creatinine 4.3 H Glucose 163 H POC Glucose 173 H 167 H Lactic Acid Calcium 6.5 L Phosphorus Magnesium Direct Bilirubin ALT Alkaline Phosphatase Troponin T C-Reactive Protein Total Protein Albumin Triglycerides Cholesterol LDL Cholesterol Direct HDL Cholesterol Urine WBC (Auto) Urine Creatinine Urine Total Protein Vancomycin Trough Rheumatoid Factor Complement C4 Miscellaneous Test Crossmatch 09/24/16 09/24/16 09/24/16 20:15 21:02 23:48 WBC RBC Hgb Hct MCV MCH MCHC RDW Plt Count Lymph % (Auto) [place] % (Auto) Lymph # [place] # Baso # Seg Neutrophils % Seg Neuts % (Manual) Lymphocytes % (Manual) Monocytes % (Manual) Eosinophils % (Manual) Basophils % (Manual) Nucleated RBC % Seg Neutrophils # Seg Neutrophils # Man Lymphocytes # (Manual) Monocytes # (Manual) Eosinophils # (Manual) PT INR Fibrinogen dRVVT Confirm Interp Factor V Activity POC ABG pH 7.288 L POC ABG pCO2 30.2 L 21.5 L POC ABG pO2 32 L 39 L Sodium Potassium Chloride Carbon Dioxide BUN Creatinine Glucose POC Glucose 109 H Lactic Acid Calcium Phosphorus Magnesium Direct Bilirubin ALT Alkaline Phosphatase Troponin T C-Reactive Protein Total Protein Albumin Triglycerides Cholesterol LDL Cholesterol Direct HDL Cholesterol Urine WBC (Auto) Urine Creatinine Urine Total Protein Vancomycin Trough Rheumatoid Factor Complement C4 Miscellaneous Test Crossmatch 09/25/16 09/25/16 09/25/16 04:20 04:20 04:20 WBC RBC 2.58 L Hgb 7.0 L Hct 21.0 L MCV MCH 27 L MCHC RDW 23.8 H Plt Count Lymph % (Auto) [place] % (Auto) Lymph # [place] # Baso # Seg Neutrophils % Seg Neuts % (Manual) Lymphocytes % (Manual) 12.0 L Monocytes % (Manual) Eosinophils % (Manual) 7.0 H Basophils % (Manual) 2.0 H Nucleated RBC % Seg Neutrophils # Seg Neutrophils # Man Lymphocytes # (Manual) 0.9 L Monocytes # (Manual) Eosinophils # (Manual) 0.5 H PT INR Fibrinogen dRVVT Confirm Interp Factor V Activity POC ABG pH POC ABG pCO2 POC ABG pO2 Sodium Potassium Chloride Carbon Dioxide 15 L BUN 72 H Creatinine 3.8 H Glucose POC Glucose Lactic Acid Calcium 6.0 L Phosphorus 4.60 H Magnesium 1.60 L Direct Bilirubin ALT Alkaline Phosphatase Troponin T C-Reactive Protein Total Protein Albumin Triglycerides Cholesterol LDL Cholesterol Direct HDL Cholesterol Urine WBC (Auto) Urine Creatinine Urine Total Protein Vancomycin Trough Rheumatoid Factor Complement C4 Miscellaneous Test Crossmatch 09/25/16 09/25/16 09/25/16 04:57 08:02 10:30 WBC RBC Hgb Hct MCV MCH MCHC RDW Plt Count Lymph % (Auto) [place] % (Auto) Lymph # [place] # Baso # Seg Neutrophils % Seg Neuts % (Manual) Lymphocytes % (Manual) Monocytes % (Manual) Eosinophils % (Manual) Basophils % (Manual) Nucleated RBC % Seg Neutrophils # Seg Neutrophils # Man Lymphocytes # (Manual) Monocytes # (Manual) Eosinophils # (Manual) PT INR Fibrinogen dRVVT Confirm Interp Factor V Activity POC ABG pH POC ABG pCO2 24.7 L POC ABG pO2 152 H Sodium Potassium Chloride Carbon Dioxide BUN Creatinine Glucose POC Glucose 113 H Lactic Acid Calcium Phosphorus Magnesium Direct Bilirubin ALT Alkaline Phosphatase Troponin T C-Reactive Protein Total Protein Albumin Triglycerides Cholesterol LDL Cholesterol Direct HDL Cholesterol Urine WBC (Auto) Urine Creatinine Urine Total Protein Vancomycin Trough Rheumatoid Factor Complement C4 Miscellaneous Test Crossmatch See Detail 09/25/16 09/25/16 09/25/16 12:05 17:44 23:47 WBC RBC Hgb Hct MCV MCH MCHC RDW Plt Count Lymph % (Auto) [place] % (Auto) Lymph # [place] # Baso # Seg Neutrophils % Seg Neuts % (Manual) Lymphocytes % (Manual) Monocytes % (Manual) Eosinophils % (Manual) Basophils % (Manual) Nucleated RBC % Seg Neutrophils # Seg Neutrophils # Man Lymphocytes # (Manual) Monocytes # (Manual) Eosinophils # (Manual) PT INR Fibrinogen dRVVT Confirm Interp Factor V Activity POC ABG pH POC ABG pCO2 POC ABG pO2 Sodium Potassium Chloride Carbon Dioxide BUN Creatinine Glucose POC Glucose 117 H 119 H 150 H Lactic Acid Calcium Phosphorus Magnesium Direct Bilirubin ALT Alkaline Phosphatase Troponin T C-Reactive Protein Total Protein Albumin Triglycerides Cholesterol LDL Cholesterol Direct HDL Cholesterol Urine WBC (Auto) Urine Creatinine Urine Total Protein Vancomycin Trough Rheumatoid Factor Complement C4 Miscellaneous Test Crossmatch 09/26/16 09/26/16 09/26/16 04:25 04:25 04:25 WBC RBC 2.65 L Hgb 7.4 L Hct 21.6 L MCV MCH MCHC RDW 22.5 H Plt Count Lymph % (Auto) [place] % (Auto) Lymph # [place] # Baso # Seg Neutrophils % Seg Neuts % (Manual) Lymphocytes % (Manual) 6.0 L Monocytes % (Manual) Eosinophils % (Manual) 11.0 H Basophils % (Manual) Nucleated RBC % Seg Neutrophils # Seg Neutrophils # Man Lymphocytes # (Manual) 0.4 L Monocytes # (Manual) Eosinophils # (Manual) 0.6 H PT INR Fibrinogen dRVVT Confirm Interp Factor V Activity POC ABG pH POC ABG pCO2 POC ABG pO2 Sodium Potassium Chloride 97.0 L Carbon Dioxide 19 L BUN 43 H Creatinine 2.6 H Glucose 130 H POC Glucose Lactic Acid 4.40 H* Calcium 6.7 L Phosphorus Magnesium Direct Bilirubin ALT Alkaline Phosphatase Troponin T C-Reactive Protein Total Protein Albumin Triglycerides Cholesterol LDL Cholesterol Direct HDL Cholesterol Urine WBC (Auto) Urine Creatinine Urine Total Protein Vancomycin Trough Rheumatoid Factor Complement C4 Miscellaneous Test Crossmatch 09/26/16 09/26/16 09/26/16 05:20 11:44 12:12 WBC RBC Hgb Hct MCV MCH MCHC RDW Plt Count Lymph % (Auto) [place] % (Auto) Lymph # [place] # Baso # Seg Neutrophils % Seg Neuts % (Manual) Lymphocytes % (Manual) Monocytes % (Manual) Eosinophils % (Manual) Basophils % (Manual) Nucleated RBC % Seg Neutrophils # Seg Neutrophils # Man Lymphocytes # (Manual) Monocytes # (Manual) Eosinophils # (Manual) PT INR Fibrinogen dRVVT Confirm Interp Factor V Activity POC ABG pH POC ABG pCO2 27.0 L POC ABG pO2 69 L Sodium Potassium Chloride Carbon Dioxide BUN Creatinine Glucose POC Glucose 121 H 128 H Lactic Acid Calcium Phosphorus Magnesium Direct Bilirubin ALT Alkaline Phosphatase Troponin T C-Reactive Protein Total Protein Albumin Triglycerides Cholesterol LDL Cholesterol Direct HDL Cholesterol Urine WBC (Auto) Urine Creatinine Urine Total Protein Vancomycin Trough Rheumatoid Factor Complement C4 Miscellaneous Test Crossmatch 09/26/16 09/26/16 09/27/16 18:31 23:40 08:20 WBC RBC Hgb Hct MCV MCH MCHC RDW Plt Count Lymph % (Auto) [place] % (Auto) Lymph # [place] # Baso # Seg Neutrophils % Seg Neuts % (Manual) Lymphocytes % (Manual) Monocytes % (Manual) Eosinophils % (Manual) Basophils % (Manual) Nucleated RBC % Seg Neutrophils # Seg Neutrophils # Man Lymphocytes # (Manual) Monocytes # (Manual) Eosinophils # (Manual) PT INR Fibrinogen dRVVT Confirm Interp Factor V Activity POC ABG pH POC ABG pCO2 POC ABG pO2 Sodium Potassium Chloride Carbon Dioxide BUN Creatinine Glucose POC Glucose 120 H 133 H Lactic Acid 4.10 H* Calcium Phosphorus Magnesium Direct Bilirubin ALT Alkaline Phosphatase Troponin T C-Reactive Protein Total Protein Albumin Triglycerides Cholesterol LDL Cholesterol Direct HDL Cholesterol Urine WBC (Auto) Urine Creatinine Urine Total Protein Vancomycin Trough Rheumatoid Factor Complement C4 Miscellaneous Test Crossmatch 09/27/16 09/27/16 09/27/16 11:23 15:00 18:15 WBC RBC Hgb Hct MCV MCH MCHC RDW Plt Count Lymph % (Auto) [place] % (Auto) Lymph # [place] # Baso # Seg Neutrophils % Seg Neuts % (Manual) Lymphocytes % (Manual) Monocytes % (Manual) Eosinophils % (Manual) Basophils % (Manual) Nucleated RBC % Seg Neutrophils # Seg Neutrophils # Man Lymphocytes # (Manual) Monocytes # (Manual) Eosinophils # (Manual) PT INR Fibrinogen dRVVT Confirm Interp Factor V Activity POC ABG pH 7.459 H POC ABG pCO2 27.1 L POC ABG pO2 140 H Sodium Potassium Chloride Carbon Dioxide BUN Creatinine Glucose POC Glucose 114 H 127 H Lactic Acid Calcium Phosphorus Magnesium Direct Bilirubin ALT Alkaline Phosphatase Troponin T C-Reactive Protein Total Protein Albumin Triglycerides Cholesterol LDL Cholesterol Direct HDL Cholesterol Urine WBC (Auto) Urine Creatinine Urine Total Protein Vancomycin Trough Rheumatoid Factor Complement C4 Miscellaneous Test Crossmatch 09/27/16 09/27/16 09/28/16 Unknown Unknown 03:45 WBC RBC 2.49 L Hgb 6.8 L Hct 20.7 L MCV MCH 27 L MCHC RDW 22.1 H Plt Count Lymph % (Auto) [place] % (Auto) Lymph # [place] # Baso # Seg Neutrophils % Seg Neuts % (Manual) 32.0 L Lymphocytes % (Manual) 12.0 L Monocytes % (Manual) 11.0 H Eosinophils % (Manual) 10.0 H Basophils % (Manual) Nucleated RBC % Seg Neutrophils # Seg Neutrophils # Man Lymphocytes # (Manual) 1.0 L Monocytes # (Manual) 0.9 H Eosinophils # (Manual) 0.8 H PT INR Fibrinogen dRVVT Confirm Interp Factor V Activity POC ABG pH POC ABG pCO2 POC ABG pO2 Sodium 135 L 135 L Potassium 3.5 L Chloride 93.6 L 94.4 L Carbon Dioxide 17 L 21 L BUN 45 H 28 H Creatinine 3.3 H 2.5 H Glucose 106 H POC Glucose Lactic Acid Calcium 7.3 L 7.1 L Phosphorus Magnesium Direct Bilirubin ALT Alkaline Phosphatase Troponin T C-Reactive Protein Total Protein Albumin Triglycerides Cholesterol LDL Cholesterol Direct HDL Cholesterol Urine WBC (Auto) Urine Creatinine Urine Total Protein Vancomycin Trough Rheumatoid Factor Complement C4 Miscellaneous Test Crossmatch 09/28/16 09/28/16 09/28/16 03:45 07:25 11:58 WBC 13.3 H RBC 3.01 L Hgb 8.4 L Hct 25.0 L MCV MCH MCHC RDW 20.5 H Plt Count 128 L Lymph % (Auto) [place] % (Auto) Lymph # [place] # Baso # Seg Neutrophils % Seg Neuts % (Manual) Lymphocytes % (Manual) 7.0 L Monocytes % (Manual) Eosinophils % (Manual) 6.0 H Basophils % (Manual) Nucleated RBC % Seg Neutrophils # Seg Neutrophils # Man Lymphocytes # (Manual) 0.9 L Monocytes # (Manual) Eosinophils # (Manual) 0.8 H PT INR Fibrinogen dRVVT Confirm Interp Factor V Activity POC ABG pH POC ABG pCO2 POC ABG pO2 Sodium Potassium Chloride Carbon Dioxide BUN Creatinine Glucose POC Glucose 121 H Lactic Acid 4.50 H* Calcium Phosphorus Magnesium Direct Bilirubin ALT Alkaline Phosphatase Troponin T C-Reactive Protein Total Protein Albumin Triglycerides Cholesterol LDL Cholesterol Direct HDL Cholesterol Urine WBC (Auto) Urine Creatinine Urine Total Protein Vancomycin Trough Rheumatoid Factor Complement C4 Miscellaneous Test Crossmatch 09/29/16 09/29/16 09/29/16 06:45 06:45 06:45 WBC 14.9 H RBC 2.74 L Hgb 7.6 L Hct 23.2 L MCV MCH MCHC RDW 20.5 H Plt Count 81 L Lymph % (Auto) [place] % (Auto) Lymph # [place] # Baso # Seg Neutrophils % Seg Neuts % (Manual) 81.0 H Lymphocytes % (Manual) 4.0 L Monocytes % (Manual) Eosinophils % (Manual) Basophils % (Manual) Nucleated RBC % Seg Neutrophils # Seg Neutrophils # Man 12.1 H Lymphocytes # (Manual) 0.6 L Monocytes # (Manual) Eosinophils # (Manual) PT INR Fibrinogen dRVVT Confirm Interp Factor V Activity POC ABG pH POC ABG pCO2 POC ABG pO2 Sodium 133 L Potassium 3.4 L Chloride 92.5 L Carbon Dioxide 21 L BUN 33 H Creatinine 3.0 H Glucose POC Glucose Lactic Acid Calcium 6.6 L Phosphorus Magnesium 1.40 L Direct Bilirubin 0.9 H ALT Alkaline Phosphatase Troponin T C-Reactive Protein Total Protein 4.3 L Albumin 1.3 L Triglycerides Cholesterol LDL Cholesterol Direct HDL Cholesterol Urine WBC (Auto) Urine Creatinine Urine Total Protein Vancomycin Trough Rheumatoid Factor Complement C4 Miscellaneous Test Crossmatch 09/29/16 09/29/16 09/30/16 17:52 20:12 00:07 WBC RBC Hgb Hct MCV MCH MCHC RDW Plt Count Lymph % (Auto) [place] % (Auto) Lymph # [place] # Baso # Seg Neutrophils % Seg Neuts % (Manual) Lymphocytes % (Manual) Monocytes % (Manual) Eosinophils % (Manual) Basophils % (Manual) Nucleated RBC % Seg Neutrophils # Seg Neutrophils # Man Lymphocytes # (Manual) Monocytes # (Manual) Eosinophils # (Manual) PT INR Fibrinogen dRVVT Confirm Interp Factor V Activity POC ABG pH POC ABG pCO2 POC ABG pO2 Sodium Potassium Chloride Carbon Dioxide BUN Creatinine Glucose POC Glucose 50 L 51 L Lactic Acid Calcium Phosphorus Magnesium Direct Bilirubin ALT Alkaline Phosphatase Troponin T 0.204 H* C-Reactive Protein Total Protein Albumin Triglycerides Cholesterol 31 L LDL Cholesterol Direct 4 L HDL Cholesterol 3 L Urine WBC (Auto) Urine Creatinine Urine Total Protein Vancomycin Trough Rheumatoid Factor Complement C4 Miscellaneous Test Crossmatch 09/30/16 09/30/16 09/30/16 01:30 05:15 06:10 WBC RBC Hgb Hct MCV MCH MCHC RDW Plt Count Lymph % (Auto) [place] % (Auto) Lymph # [place] # Baso # Seg Neutrophils % Seg Neuts % (Manual) Lymphocytes % (Manual) Monocytes % (Manual) Eosinophils % (Manual) Basophils % (Manual) Nucleated RBC % Seg Neutrophils # Seg Neutrophils # Man Lymphocytes # (Manual) Monocytes # (Manual) Eosinophils # (Manual) PT INR Fibrinogen dRVVT Confirm Interp Factor V Activity POC ABG pH POC ABG pCO2 POC ABG pO2 Sodium 133 L Potassium 3.2 L Chloride 93.2 L Carbon Dioxide 19 L BUN 36 H Creatinine 3.2 H Glucose 104 H POC Glucose 167 H 146 H Lactic Acid Calcium 6.4 L Phosphorus Magnesium 1.60 L Direct Bilirubin ALT Alkaline Phosphatase Troponin T C-Reactive Protein Total Protein Albumin Triglycerides Cholesterol LDL Cholesterol Direct HDL Cholesterol Urine WBC (Auto) Urine Creatinine Urine Total Protein Vancomycin Trough Rheumatoid Factor Complement C4 Miscellaneous Test Crossmatch 09/30/16 09/30/16 09/30/16 11:26 13:39 18:38 WBC RBC Hgb Hct MCV MCH MCHC RDW Plt Count Lymph % (Auto) [place] % (Auto) Lymph # [place] # Baso # Seg Neutrophils % Seg Neuts % (Manual) Lymphocytes % (Manual) Monocytes % (Manual) Eosinophils % (Manual) Basophils % (Manual) Nucleated RBC % Seg Neutrophils # Seg Neutrophils # Man Lymphocytes # (Manual) Monocytes # (Manual) Eosinophils # (Manual) PT INR Fibrinogen dRVVT Confirm Interp Factor V Activity POC ABG pH 7.479 H POC ABG pCO2 29.8 L POC ABG pO2 117 H Sodium Potassium Chloride Carbon Dioxide BUN Creatinine Glucose POC Glucose 140 H 122 H Lactic Acid Calcium Phosphorus Magnesium Direct Bilirubin ALT Alkaline Phosphatase Troponin T C-Reactive Protein Total Protein Albumin Triglycerides Cholesterol LDL Cholesterol Direct HDL Cholesterol Urine WBC (Auto) Urine Creatinine Urine Total Protein Vancomycin Trough Rheumatoid Factor Complement C4 Miscellaneous Test Crossmatch 10/01/16 10/01/16 10/01/16 06:00 06:00 12:37 WBC 12.6 H RBC 2.75 L Hgb 7.3 L Hct 23.3 L MCV MCH 27 L MCHC RDW 20.6 H Plt Count 72 L Lymph % (Auto) [place] % (Auto) Lymph # [place] # Baso # Seg Neutrophils % Seg Neuts % (Manual) 31.0 L Lymphocytes % (Manual) 8.0 L Monocytes % (Manual) Eosinophils % (Manual) Basophils % (Manual) Nucleated RBC % 3.0 H Seg Neutrophils # Seg Neutrophils # Man Lymphocytes # (Manual) 1.0 L Monocytes # (Manual) Eosinophils # (Manual) PT INR Fibrinogen dRVVT Confirm Interp Factor V Activity POC ABG pH POC ABG pCO2 POC ABG pO2 Sodium 127 L Potassium Chloride 86.8 L Carbon Dioxide 20 L BUN 42 H Creatinine 3.5 H Glucose POC Glucose 65 L Lactic Acid Calcium 7.0 L Phosphorus Magnesium Direct Bilirubin ALT Alkaline Phosphatase Troponin T C-Reactive Protein Total Protein Albumin Triglycerides Cholesterol LDL Cholesterol Direct HDL Cholesterol Urine WBC (Auto) Urine Creatinine Urine Total Protein Vancomycin Trough Rheumatoid Factor Complement C4 Miscellaneous Test Crossmatch 10/01/16 10/01/16 10/02/16 17:39 23:32 00:59 WBC RBC Hgb Hct MCV MCH MCHC RDW Plt Count Lymph % (Auto) [place] % (Auto) Lymph # [place] # Baso # Seg Neutrophils % Seg Neuts % (Manual) Lymphocytes % (Manual) Monocytes % (Manual) Eosinophils % (Manual) Basophils % (Manual) Nucleated RBC % Seg Neutrophils # Seg Neutrophils # Man Lymphocytes # (Manual) Monocytes # (Manual) Eosinophils # (Manual) PT INR Fibrinogen dRVVT Confirm Interp Factor V Activity POC ABG pH POC ABG pCO2 POC ABG pO2 Sodium Potassium Chloride Carbon Dioxide BUN Creatinine Glucose POC Glucose 107 H 52 L 145 H Lactic Acid Calcium Phosphorus Magnesium Direct Bilirubin ALT Alkaline Phosphatase Troponin T C-Reactive Protein Total Protein Albumin Triglycerides Cholesterol LDL Cholesterol Direct HDL Cholesterol Urine WBC (Auto) Urine Creatinine Urine Total Protein Vancomycin Trough Rheumatoid Factor Complement C4 Miscellaneous Test Crossmatch 10/02/16 10/02/16 10/02/16 10:30 10:50 10:50 WBC 14.7 H RBC 2.76 L Hgb 7.4 L Hct 23.6 L MCV MCH 27 L MCHC RDW 20.2 H Plt Count 79 L Lymph % (Auto) [place] % (Auto) Lymph # [place] # Baso # Seg Neutrophils % Seg Neuts % (Manual) 86.0 H Lymphocytes % (Manual) 6.0 L Monocytes % (Manual) Eosinophils % (Manual) Basophils % (Manual) Nucleated RBC % Seg Neutrophils # Seg Neutrophils # Man 12.6 H Lymphocytes # (Manual) 0.9 L Monocytes # (Manual) Eosinophils # (Manual) PT INR Fibrinogen dRVVT Confirm Interp Factor V Activity POC ABG pH 7.486 H POC ABG pCO2 30.1 L POC ABG pO2 108 H Sodium 131 L Potassium 3.4 L Chloride 89.9 L Carbon Dioxide BUN 26 H Creatinine 2.6 H Glucose POC Glucose Lactic Acid Calcium 7.0 L Phosphorus Magnesium Direct Bilirubin ALT Alkaline Phosphatase Troponin T C-Reactive Protein Total Protein Albumin Triglycerides Cholesterol LDL Cholesterol Direct HDL Cholesterol Urine WBC (Auto) Urine Creatinine Urine Total Protein Vancomycin Trough Rheumatoid Factor Complement C4 Miscellaneous Test Crossmatch 10/02/16 10/03/16 10/03/16 23:45 00:45 05:10 WBC 12.9 H RBC 2.77 L Hgb 7.6 L Hct 23.7 L MCV MCH 27 L MCHC RDW 19.7 H Plt Count 89 L Lymph % (Auto) [place] % (Auto) Lymph # [place] # Baso # Seg Neutrophils % Seg Neuts % (Manual) Lymphocytes % (Manual) 8.0 L Monocytes % (Manual) Eosinophils % (Manual) Basophils % (Manual) Nucleated RBC % Seg Neutrophils # 11.9 H Seg Neutrophils # Man Lymphocytes # (Manual) 1.0 L Monocytes # (Manual) Eosinophils # (Manual) PT INR Fibrinogen dRVVT Confirm Interp Factor V Activity POC ABG pH POC ABG pCO2 POC ABG pO2 Sodium Potassium Chloride Carbon Dioxide BUN Creatinine Glucose POC Glucose 55 L 199 H Lactic Acid Calcium Phosphorus Magnesium Direct Bilirubin ALT Alkaline Phosphatase Troponin T C-Reactive Protein Total Protein Albumin Triglycerides Cholesterol LDL Cholesterol Direct HDL Cholesterol Urine WBC (Auto) Urine Creatinine Urine Total Protein Vancomycin Trough Rheumatoid Factor Complement C4 Miscellaneous Test Crossmatch 10/03/16 10/03/16 10/03/16 05:10 12:14 13:18 WBC RBC Hgb Hct MCV MCH MCHC RDW Plt Count Lymph % (Auto) [place] % (Auto) Lymph # [place] # Baso # Seg Neutrophils % Seg Neuts % (Manual) Lymphocytes % (Manual) Monocytes % (Manual) Eosinophils % (Manual) Basophils % (Manual) Nucleated RBC % Seg Neutrophils # Seg Neutrophils # Man Lymphocytes # (Manual) Monocytes # (Manual) Eosinophils # (Manual) PT INR Fibrinogen dRVVT Confirm Interp Factor V Activity POC ABG pH POC ABG pCO2 POC ABG pO2 Sodium 129 L Potassium 3.3 L Chloride 88.8 L Carbon Dioxide 20 L BUN 29 H Creatinine 2.8 H Glucose POC Glucose 68 L 127 H Lactic Acid Calcium 7.2 L Phosphorus Magnesium Direct Bilirubin ALT Alkaline Phosphatase Troponin T C-Reactive Protein Total Protein Albumin Triglycerides Cholesterol LDL Cholesterol Direct HDL Cholesterol Urine WBC (Auto) Urine Creatinine Urine Total Protein Vancomycin Trough Rheumatoid Factor Complement C4 Miscellaneous Test Crossmatch 10/03/16 10/03/16 10/03/16 14:42 18:21 19:09 WBC RBC Hgb Hct MCV MCH MCHC RDW Plt Count Lymph % (Auto) [place] % (Auto) Lymph # [place] # Baso # Seg Neutrophils % Seg Neuts % (Manual) Lymphocytes % (Manual) Monocytes % (Manual) Eosinophils % (Manual) Basophils % (Manual) Nucleated RBC % Seg Neutrophils # Seg Neutrophils # Man Lymphocytes # (Manual) Monocytes # (Manual) Eosinophils # (Manual) PT INR Fibrinogen dRVVT Confirm Interp Factor V Activity POC ABG pH 7.499 H POC ABG pCO2 28.4 L POC ABG pO2 44 L Sodium Potassium Chloride Carbon Dioxide BUN Creatinine Glucose POC Glucose 64 L 205 H Lactic Acid Calcium Phosphorus Magnesium Direct Bilirubin ALT Alkaline Phosphatase Troponin T C-Reactive Protein Total Protein Albumin Triglycerides Cholesterol LDL Cholesterol Direct HDL Cholesterol Urine WBC (Auto) Urine Creatinine Urine Total Protein Vancomycin Trough Rheumatoid Factor Complement C4 Miscellaneous Test Crossmatch 10/03/16 10/04/16 10/04/16 23:33 04:18 06:30 WBC RBC 2.54 L Hgb 7.1 L Hct 21.7 L MCV MCH MCHC RDW 19.5 H Plt Count 76 L Lymph % (Auto) [place] % (Auto) Lymph # [place] # Baso # Seg Neutrophils % Seg Neuts % (Manual) 88.0 H Lymphocytes % (Manual) 6.0 L Monocytes % (Manual) Eosinophils % (Manual) Basophils % (Manual) Nucleated RBC % Seg Neutrophils # Seg Neutrophils # Man 8.8 H Lymphocytes # (Manual) 0.6 L Monocytes # (Manual) Eosinophils # (Manual) PT INR Fibrinogen dRVVT Confirm Interp Factor V Activity POC ABG pH 7.461 H POC ABG pCO2 33.6 L POC ABG pO2 211 H Sodium Potassium Chloride Carbon Dioxide BUN Creatinine Glucose POC Glucose 136 H Lactic Acid Calcium Phosphorus Magnesium Direct Bilirubin ALT Alkaline Phosphatase Troponin T C-Reactive Protein Total Protein Albumin Triglycerides Cholesterol LDL Cholesterol Direct HDL Cholesterol Urine WBC (Auto) Urine Creatinine Urine Total Protein Vancomycin Trough Rheumatoid Factor Complement C4 Miscellaneous Test Crossmatch 10/04/16 10/04/16 10/04/16 06:30 11:45 17:54 WBC RBC Hgb Hct MCV MCH MCHC RDW Plt Count Lymph % (Auto) [place] % (Auto) Lymph # [place] # Baso # Seg Neutrophils % Seg Neuts % (Manual) Lymphocytes % (Manual) Monocytes % (Manual) Eosinophils % (Manual) Basophils % (Manual) Nucleated RBC % Seg Neutrophils # Seg Neutrophils # Man Lymphocytes # (Manual) Monocytes # (Manual) Eosinophils # (Manual) PT INR Fibrinogen dRVVT Confirm Interp Factor V Activity POC ABG pH POC ABG pCO2 POC ABG pO2 Sodium 128 L Potassium Chloride 87.4 L Carbon Dioxide 20 L BUN 34 H Creatinine 2.9 H Glucose 127 H POC Glucose 158 H 160 H Lactic Acid Calcium 7.4 L Phosphorus Magnesium Direct Bilirubin ALT Alkaline Phosphatase Troponin T C-Reactive Protein Total Protein Albumin Triglycerides Cholesterol LDL Cholesterol Direct HDL Cholesterol Urine WBC (Auto) Urine Creatinine Urine Total Protein Vancomycin Trough Rheumatoid Factor Complement C4 Miscellaneous Test Crossmatch 10/04/16 10/05/16 10/05/16 23:25 04:30 05:00 WBC RBC 2.64 L Hgb 7.5 L Hct 22.6 L MCV MCH MCHC RDW 19.3 H Plt Count 80 L Lymph % (Auto) [place] % (Auto) Lymph # [place] # Baso # Seg Neutrophils % Seg Neuts % (Manual) Lymphocytes % (Manual) 12.0 L Monocytes % (Manual) Eosinophils % (Manual) Basophils % (Manual) Nucleated RBC % Seg Neutrophils # Seg Neutrophils # Man Lymphocytes # (Manual) Monocytes # (Manual) Eosinophils # (Manual) PT INR Fibrinogen dRVVT Confirm Interp Factor V Activity POC ABG pH 7.475 H POC ABG pCO2 33.3 L POC ABG pO2 140 H Sodium Potassium Chloride Carbon Dioxide BUN Creatinine Glucose POC Glucose 141 H Lactic Acid Calcium Phosphorus Magnesium Direct Bilirubin ALT Alkaline Phosphatase Troponin T C-Reactive Protein Total Protein Albumin Triglycerides Cholesterol LDL Cholesterol Direct HDL Cholesterol Urine WBC (Auto) Urine Creatinine Urine Total Protein Vancomycin Trough Rheumatoid Factor Complement C4 Miscellaneous Test Crossmatch 10/05/16 10/05/16 10/05/16 05:00 05:09 12:58 WBC RBC Hgb Hct MCV MCH MCHC RDW Plt Count Lymph % (Auto) [place] % (Auto) Lymph # [place] # Baso # Seg Neutrophils % Seg Neuts % (Manual) Lymphocytes % (Manual) Monocytes % (Manual) Eosinophils % (Manual) Basophils % (Manual) Nucleated RBC % Seg Neutrophils # Seg Neutrophils # Man Lymphocytes # (Manual) Monocytes # (Manual) Eosinophils # (Manual) PT INR Fibrinogen dRVVT Confirm Interp Factor V Activity POC ABG pH POC ABG pCO2 POC ABG pO2 Sodium 131 L Potassium Chloride 94.0 L Carbon Dioxide 20 L BUN 22 H Creatinine 2.0 H Glucose 123 H POC Glucose 166 H 179 H Lactic Acid Calcium 7.7 L Phosphorus 2.20 L D Magnesium Direct Bilirubin ALT Alkaline Phosphatase Troponin T C-Reactive Protein Total Protein Albumin Triglycerides Cholesterol LDL Cholesterol Direct HDL Cholesterol Urine WBC (Auto) Urine Creatinine Urine Total Protein Vancomycin Trough Rheumatoid Factor Complement C4 Miscellaneous Test Crossmatch 10/05/16 10/05/16 10/05/16 15:50 18:53 23:12 WBC RBC Hgb Hct MCV MCH MCHC RDW Plt Count Lymph % (Auto) [place] % (Auto) Lymph # [place] # Baso # Seg Neutrophils % Seg Neuts % (Manual) Lymphocytes % (Manual) Monocytes % (Manual) Eosinophils % (Manual) Basophils % (Manual) Nucleated RBC % Seg Neutrophils # Seg Neutrophils # Man Lymphocytes # (Manual) Monocytes # (Manual) Eosinophils # (Manual) PT INR Fibrinogen dRVVT Confirm Interp Factor V Activity POC ABG pH POC ABG pCO2 POC ABG pO2 Sodium Potassium Chloride Carbon Dioxide BUN Creatinine Glucose POC Glucose 150 H 164 H Lactic Acid Calcium Phosphorus Magnesium Direct Bilirubin ALT Alkaline Phosphatase Troponin T C-Reactive Protein Total Protein Albumin Triglycerides Cholesterol LDL Cholesterol Direct HDL Cholesterol Urine WBC (Auto) Urine Creatinine Urine Total Protein Vancomycin Trough Rheumatoid Factor Complement C4 Miscellaneous Test Crossmatch See Detail 10/06/16 10/06/16 10/06/16 03:50 03:50 04:53 WBC RBC 3.00 L Hgb 8.6 L Hct 25.8 L MCV MCH MCHC RDW 17.9 H Plt Count 65 L Lymph % (Auto) [place] % (Auto) Lymph # [place] # Baso # Seg Neutrophils % Seg Neuts % (Manual) 30.0 L Lymphocytes % (Manual) 5.0 L Monocytes % (Manual) Eosinophils % (Manual) Basophils % (Manual) Nucleated RBC % Seg Neutrophils # Seg Neutrophils # Man Lymphocytes # (Manual) 0.4 L Monocytes # (Manual) Eosinophils # (Manual) PT INR Fibrinogen dRVVT Confirm Interp Factor V Activity POC ABG pH 7.310 L POC ABG pCO2 49.0 H POC ABG pO2 Sodium 133 L Potassium Chloride 95.9 L Carbon Dioxide BUN 26 H Creatinine 2.0 H Glucose 116 H POC Glucose Lactic Acid Calcium 7.8 L Phosphorus Magnesium Direct Bilirubin ALT Alkaline Phosphatase Troponin T C-Reactive Protein Total Protein Albumin Triglycerides Cholesterol LDL Cholesterol Direct HDL Cholesterol Urine WBC (Auto) Urine Creatinine Urine Total Protein Vancomycin Trough Rheumatoid Factor Complement C4 Miscellaneous Test Crossmatch 10/06/16 10/06/16 10/06/16 05:23 11:52 18:34 WBC RBC Hgb Hct MCV MCH MCHC RDW Plt Count Lymph % (Auto) [place] % (Auto) Lymph # [place] # Baso # Seg Neutrophils % Seg Neuts % (Manual) Lymphocytes % (Manual) Monocytes % (Manual) Eosinophils % (Manual) Basophils % (Manual) Nucleated RBC % Seg Neutrophils # Seg Neutrophils # Man Lymphocytes # (Manual) Monocytes # (Manual) Eosinophils # (Manual) PT INR Fibrinogen dRVVT Confirm Interp Factor V Activity POC ABG pH POC ABG pCO2 POC ABG pO2 Sodium Potassium Chloride Carbon Dioxide BUN Creatinine Glucose POC Glucose 126 H 116 H 129 H Lactic Acid Calcium Phosphorus Magnesium Direct Bilirubin ALT Alkaline Phosphatase Troponin T C-Reactive Protein Total Protein Albumin Triglycerides Cholesterol LDL Cholesterol Direct HDL Cholesterol Urine WBC (Auto) Urine Creatinine Urine Total Protein Vancomycin Trough Rheumatoid Factor Complement C4 Miscellaneous Test Crossmatch 10/07/16 10/07/16 10/07/16 03:45 05:00 10:00 WBC 17.0 H RBC 2.68 L Hgb 7.3 L Hct 25.3 L MCV MCH 27 L MCHC 29 L RDW 19.6 H Plt Count 74 L Lymph % (Auto) [place] % (Auto) Lymph # [place] # Baso # Seg Neutrophils % Seg Neuts % (Manual) Lymphocytes % (Manual) 12.0 L Monocytes % (Manual) Eosinophils % (Manual) Basophils % (Manual) Nucleated RBC % 4.0 H Seg Neutrophils # Seg Neutrophils # Man 10.7 H Lymphocytes # (Manual) Monocytes # (Manual) Eosinophils # (Manual) PT INR Fibrinogen dRVVT Confirm Interp Factor V Activity POC ABG pH POC ABG pCO2 POC ABG pO2 Sodium 130 L Potassium 3.2 L Chloride 93.9 L Carbon Dioxide 20 L BUN 44 H Creatinine 2.7 H Glucose 129 H POC Glucose Lactic Acid Calcium 7.4 L Phosphorus Magnesium Direct Bilirubin ALT 6 L Alkaline Phosphatase 195 H Troponin T C-Reactive Protein Total Protein 4.9 L Albumin 1.0 L Triglycerides Cholesterol LDL Cholesterol Direct HDL Cholesterol Urine WBC (Auto) Urine Creatinine Urine Total Protein Vancomycin Trough Rheumatoid Factor Complement C4 Miscellaneous Test Flexitest 1 H Crossmatch 10/07/16 10/07/16 10/07/16 10:00 11:24 18:10 WBC RBC Hgb Hct MCV MCH MCHC RDW Plt Count Lymph % (Auto) [place] % (Auto) Lymph # [place] # Baso # Seg Neutrophils % Seg Neuts % (Manual) Lymphocytes % (Manual) Monocytes % (Manual) Eosinophils % (Manual) Basophils % (Manual) Nucleated RBC % Seg Neutrophils # Seg Neutrophils # Man Lymphocytes # (Manual) Monocytes # (Manual) Eosinophils # (Manual) PT INR Fibrinogen dRVVT Confirm Interp Factor V Activity POC ABG pH POC ABG pCO2 POC ABG pO2 Sodium Potassium Chloride Carbon Dioxide BUN Creatinine Glucose POC Glucose 116 H 130 H Lactic Acid Calcium Phosphorus Magnesium Direct Bilirubin ALT Alkaline Phosphatase Troponin T C-Reactive Protein 19.40 H Total Protein Albumin Triglycerides Cholesterol LDL Cholesterol Direct HDL Cholesterol Urine WBC (Auto) Urine Creatinine Urine Total Protein Vancomycin Trough Rheumatoid Factor Complement C4 Miscellaneous Test Crossmatch 10/07/16 10/08/16 10/08/16 18:30 00:00 04:00 WBC RBC Hgb Hct MCV MCH MCHC RDW Plt Count Lymph % (Auto) [place] % (Auto) Lymph # [place] # Baso # Seg Neutrophils % Seg Neuts % (Manual) Lymphocytes % (Manual) Monocytes % (Manual) Eosinophils % (Manual) Basophils % (Manual) Nucleated RBC % Seg Neutrophils # Seg Neutrophils # Man Lymphocytes # (Manual) Monocytes # (Manual) Eosinophils # (Manual) PT INR Fibrinogen dRVVT Confirm Interp Factor V Activity POC ABG pH POC ABG pCO2 POC ABG pO2 Sodium 132 L Potassium 3.3 L Chloride 93.6 L Carbon Dioxide 17 L BUN 59 H Creatinine 2.7 H Glucose 121 H POC Glucose 122 H Lactic Acid Calcium 7.6 L Phosphorus Magnesium Direct Bilirubin ALT Alkaline Phosphatase Troponin T C-Reactive Protein Total Protein Albumin Triglycerides Cholesterol LDL Cholesterol Direct HDL Cholesterol Urine WBC (Auto) > 182.0 H Urine Creatinine Urine Total Protein Vancomycin Trough Rheumatoid Factor Complement C4 Miscellaneous Test Crossmatch 10/08/16 10/08/16 10/08/16 04:30 05:30 11:51 WBC RBC 5.15 H Hgb 14.4 H D Hct 44.5 H D MCV MCH MCHC RDW 19.5 H Plt Count 56 L Lymph % (Auto) [place] % (Auto) Lymph # [place] # Baso # Seg Neutrophils % Seg Neuts % (Manual) 24.0 L Lymphocytes % (Manual) 8.0 L Monocytes % (Manual) Eosinophils % (Manual) Basophils % (Manual) Nucleated RBC % 9.0 H Seg Neutrophils # Seg Neutrophils # Man Lymphocytes # (Manual) 0.7 L Monocytes # (Manual) Eosinophils # (Manual) PT INR Fibrinogen dRVVT Confirm Interp Factor V Activity POC ABG pH POC ABG pCO2 POC ABG pO2 Sodium Potassium Chloride Carbon Dioxide BUN Creatinine Glucose POC Glucose 125 H 150 H Lactic Acid Calcium Phosphorus Magnesium Direct Bilirubin ALT Alkaline Phosphatase Troponin T C-Reactive Protein Total Protein Albumin Triglycerides Cholesterol LDL Cholesterol Direct HDL Cholesterol Urine WBC (Auto) Urine Creatinine Urine Total Protein Vancomycin Trough Rheumatoid Factor Complement C4 Miscellaneous Test Crossmatch 10/08/16 10/08/16 10/08/16 12:49 17:07 19:30 WBC RBC Hgb 7.1 L D Hct 22.4 L D MCV MCH MCHC RDW Plt Count Lymph % (Auto) [place] % (Auto) Lymph # [place] # Baso # Seg Neutrophils % Seg Neuts % (Manual) Lymphocytes % (Manual) Monocytes % (Manual) Eosinophils % (Manual) Basophils % (Manual) Nucleated RBC % Seg Neutrophils # Seg Neutrophils # Man Lymphocytes # (Manual) Monocytes # (Manual) Eosinophils # (Manual) PT INR Fibrinogen dRVVT Confirm Interp Factor V Activity POC ABG pH POC ABG pCO2 28.2 L POC ABG pO2 111 H Sodium Potassium Chloride Carbon Dioxide BUN Creatinine Glucose POC Glucose 145 H Lactic Acid Calcium Phosphorus Magnesium Direct Bilirubin ALT Alkaline Phosphatase Troponin T C-Reactive Protein Total Protein Albumin Triglycerides Cholesterol LDL Cholesterol Direct HDL Cholesterol Urine WBC (Auto) Urine Creatinine Urine Total Protein Vancomycin Trough Rheumatoid Factor Complement C4 Miscellaneous Test Crossmatch 10/08/16 10/09/16 10/09/16 19:30 03:45 03:45 WBC 12.6 H RBC 2.36 L Hgb 6.7 L Hct 21.1 L MCV MCH MCHC RDW 19.5 H Plt Count 75 L Lymph % (Auto) [place] % (Auto) Lymph # [place] # Baso # Seg Neutrophils % Seg Neuts % (Manual) Lymphocytes % (Manual) Monocytes % (Manual) 10.0 H Eosinophils % (Manual) Basophils % (Manual) Nucleated RBC % 3.0 H Seg Neutrophils # Seg Neutrophils # Man Lymphocytes # (Manual) Monocytes # (Manual) 1.3 H Eosinophils # (Manual) PT 18.0 H INR 1.41 H Fibrinogen dRVVT Confirm Interp Factor V Activity POC ABG pH POC ABG pCO2 POC ABG pO2 Sodium 135 L Potassium Chloride Carbon Dioxide 17 L BUN 81 H Creatinine 3.2 H Glucose 109 H POC Glucose Lactic Acid Calcium 7.4 L Phosphorus 4.60 H D Magnesium Direct Bilirubin ALT Alkaline Phosphatase Troponin T C-Reactive Protein Total Protein Albumin Triglycerides Cholesterol LDL Cholesterol Direct HDL Cholesterol Urine WBC (Auto) Urine Creatinine Urine Total Protein Vancomycin Trough Rheumatoid Factor Complement C4 Miscellaneous Test Crossmatch 10/09/16 10/09/16 10/09/16 03:45 05:14 07:20 WBC RBC Hgb Hct MCV MCH MCHC RDW Plt Count Lymph % (Auto) [place] % (Auto) Lymph # [place] # Baso # Seg Neutrophils % Seg Neuts % (Manual) Lymphocytes % (Manual) Monocytes % (Manual) Eosinophils % (Manual) Basophils % (Manual) Nucleated RBC % Seg Neutrophils # Seg Neutrophils # Man Lymphocytes # (Manual) Monocytes # (Manual) Eosinophils # (Manual) PT 19.0 H INR 1.51 H Fibrinogen dRVVT Confirm Interp Factor V Activity POC ABG pH POC ABG pCO2 POC ABG pO2 Sodium Potassium Chloride Carbon Dioxide BUN Creatinine Glucose POC Glucose 151 H Lactic Acid Calcium Phosphorus Magnesium Direct Bilirubin ALT Alkaline Phosphatase Troponin T C-Reactive Protein Total Protein Albumin Triglycerides Cholesterol LDL Cholesterol Direct HDL Cholesterol Urine WBC (Auto) Urine Creatinine Urine Total Protein Vancomycin Trough Rheumatoid Factor Complement C4 Miscellaneous Test Crossmatch See Detail 10/09/16 10/09/16 10/09/16 11:46 16:20 16:43 WBC RBC Hgb 7.2 L Hct 22.2 L MCV MCH MCHC RDW Plt Count Lymph % (Auto) [place] % (Auto) Lymph # [place] # Baso # Seg Neutrophils % Seg Neuts % (Manual) Lymphocytes % (Manual) Monocytes % (Manual) Eosinophils % (Manual) Basophils % (Manual) Nucleated RBC % Seg Neutrophils # Seg Neutrophils # Man Lymphocytes # (Manual) Monocytes # (Manual) Eosinophils # (Manual) PT INR Fibrinogen dRVVT Confirm Interp Factor V Activity POC ABG pH POC ABG pCO2 POC ABG pO2 Sodium Potassium Chloride Carbon Dioxide BUN Creatinine Glucose POC Glucose 133 H 141 H Lactic Acid Calcium Phosphorus Magnesium Direct Bilirubin ALT Alkaline Phosphatase Troponin T C-Reactive Protein Total Protein Albumin Triglycerides Cholesterol LDL Cholesterol Direct HDL Cholesterol Urine WBC (Auto) Urine Creatinine Urine Total Protein Vancomycin Trough Rheumatoid Factor Complement C4 Miscellaneous Test Crossmatch 10/10/16 10/10/16 10/10/16 05:00 05:00 11:19 WBC 18.5 H RBC 2.19 L Hgb 6.4 L Hct 19.6 L* MCV MCH MCHC RDW 19.3 H Plt Count 93 L Lymph % (Auto) [place] % (Auto) Lymph # [place] # Baso # Seg Neutrophils % Seg Neuts % (Manual) Lymphocytes % (Manual) 10.0 L Monocytes % (Manual) Eosinophils % (Manual) Basophils % (Manual) Nucleated RBC % 4.0 H Seg Neutrophils # Seg Neutrophils # Man 11.3 H Lymphocytes # (Manual) Monocytes # (Manual) Eosinophils # (Manual) PT INR Fibrinogen dRVVT Confirm Interp Factor V Activity POC ABG pH POC ABG pCO2 POC ABG pO2 Sodium Potassium 5.7 H D Chloride Carbon Dioxide 16 L BUN 94 H Creatinine 3.1 H Glucose 131 H POC Glucose 153 H Lactic Acid Calcium 8.2 L Phosphorus 5.10 H Magnesium 2.40 H Direct Bilirubin 0.3 H ALT < 5 L Alkaline Phosphatase 319 H Troponin T C-Reactive Protein Total Protein 5.1 L Albumin 1.0 L Triglycerides Cholesterol LDL Cholesterol Direct HDL Cholesterol Urine WBC (Auto) Urine Creatinine Urine Total Protein Vancomycin Trough Rheumatoid Factor Complement C4 Miscellaneous Test Crossmatch 10/10/16 10/10/16 10/11/16 17:50 23:30 04:15 WBC RBC Hgb Hct MCV MCH MCHC RDW Plt Count Lymph % (Auto) [place] % (Auto) Lymph # [place] # Baso # Seg Neutrophils % Seg Neuts % (Manual) Lymphocytes % (Manual) Monocytes % (Manual) Eosinophils % (Manual) Basophils % (Manual) Nucleated RBC % Seg Neutrophils # Seg Neutrophils # Man Lymphocytes # (Manual) Monocytes # (Manual) Eosinophils # (Manual) PT INR Fibrinogen dRVVT Confirm Interp Factor V Activity POC ABG pH POC ABG pCO2 POC ABG pO2 Sodium Potassium Chloride 96.4 L Carbon Dioxide 21 L BUN 57 H Creatinine 2.1 H Glucose 151 H POC Glucose 146 H 141 H Lactic Acid Calcium 8.3 L Phosphorus Magnesium Direct Bilirubin ALT Alkaline Phosphatase Troponin T C-Reactive Protein Total Protein Albumin Triglycerides Cholesterol LDL Cholesterol Direct HDL Cholesterol Urine WBC (Auto) Urine Creatinine Urine Total Protein Vancomycin Trough Rheumatoid Factor Complement C4 Miscellaneous Test Crossmatch 10/11/16 10/11/16 10/11/16 04:15 04:15 05:30 WBC 28.3 H RBC 3.12 L Hgb 9.3 L Hct 28.7 L D MCV MCH MCHC RDW 17.7 H Plt Count 128 L Lymph % (Auto) [place] % (Auto) Lymph # [place] # Baso # Seg Neutrophils % Seg Neuts % (Manual) Lymphocytes % (Manual) Monocytes % (Manual) Eosinophils % (Manual) Basophils % (Manual) Nucleated RBC % Seg Neutrophils # Seg Neutrophils # Man Lymphocytes # (Manual) Monocytes # (Manual) Eosinophils # (Manual) PT INR Fibrinogen dRVVT Confirm Interp Factor V Activity POC ABG pH POC ABG pCO2 POC ABG pO2 Sodium Potassium Chloride Carbon Dioxide BUN Creatinine Glucose POC Glucose 167 H Lactic Acid Calcium Phosphorus Magnesium Direct Bilirubin ALT Alkaline Phosphatase Troponin T C-Reactive Protein 15.80 H Total Protein Albumin Triglycerides Cholesterol LDL Cholesterol Direct HDL Cholesterol Urine WBC (Auto) Urine Creatinine Urine Total Protein Vancomycin Trough Rheumatoid Factor Complement C4 Miscellaneous Test Crossmatch 10/11/16 10/11/16 10/11/16 11:40 15:49 23:57 WBC RBC Hgb Hct MCV MCH MCHC RDW Plt Count Lymph % (Auto) [place] % (Auto) Lymph # [place] # Baso # Seg Neutrophils % Seg Neuts % (Manual) Lymphocytes % (Manual) Monocytes % (Manual) Eosinophils % (Manual) Basophils % (Manual) Nucleated RBC % Seg Neutrophils # Seg Neutrophils # Man Lymphocytes # (Manual) Monocytes # (Manual) Eosinophils # (Manual) PT INR Fibrinogen dRVVT Confirm Interp Factor V Activity POC ABG pH POC ABG pCO2 POC ABG pO2 Sodium Potassium Chloride Carbon Dioxide BUN Creatinine Glucose POC Glucose 139 H 168 H 161 H Lactic Acid Calcium Phosphorus Magnesium Direct Bilirubin ALT Alkaline Phosphatase Troponin T C-Reactive Protein Total Protein Albumin Triglycerides Cholesterol LDL Cholesterol Direct HDL Cholesterol Urine WBC (Auto) Urine Creatinine Urine Total Protein Vancomycin Trough Rheumatoid Factor Complement C4 Miscellaneous Test Crossmatch 10/12/16 10/12/16 10/12/16 04:40 04:40 05:44 WBC 22.5 H RBC 2.88 L Hgb 8.8 L Hct 26.8 L MCV MCH MCHC RDW 17.8 H Plt Count Lymph % (Auto) [place] % (Auto) Lymph # [place] # Baso # Seg Neutrophils % Seg Neuts % (Manual) Lymphocytes % (Manual) Monocytes % (Manual) Eosinophils % (Manual) Basophils % (Manual) Nucleated RBC % Seg Neutrophils # Seg Neutrophils # Man Lymphocytes # (Manual) Monocytes # (Manual) Eosinophils # (Manual) PT INR Fibrinogen dRVVT Confirm Interp Factor V Activity POC ABG pH POC ABG pCO2 POC ABG pO2 Sodium 134 L Potassium Chloride 93.0 L Carbon Dioxide BUN 74 H Creatinine 2.5 H Glucose 137 H POC Glucose 158 H Lactic Acid Calcium 8.2 L Phosphorus Magnesium Direct Bilirubin ALT Alkaline Phosphatase Troponin T C-Reactive Protein Total Protein Albumin Triglycerides Cholesterol LDL Cholesterol Direct HDL Cholesterol Urine WBC (Auto) Urine Creatinine Urine Total Protein Vancomycin Trough Rheumatoid Factor Complement C4 Miscellaneous Test Crossmatch 10/12/16 10/12/16 10/12/16 12:27 18:18 23:46 WBC RBC Hgb Hct MCV MCH MCHC RDW Plt Count Lymph % (Auto) [place] % (Auto) Lymph # [place] # Baso # Seg Neutrophils % Seg Neuts % (Manual) Lymphocytes % (Manual) Monocytes % (Manual) Eosinophils % (Manual) Basophils % (Manual) Nucleated RBC % Seg Neutrophils # Seg Neutrophils # Man Lymphocytes # (Manual) Monocytes # (Manual) Eosinophils # (Manual) PT INR Fibrinogen dRVVT Confirm Interp Factor V Activity POC ABG pH POC ABG pCO2 POC ABG pO2 Sodium Potassium Chloride Carbon Dioxide BUN Creatinine Glucose POC Glucose 153 H 140 H 150 H Lactic Acid Calcium Phosphorus Magnesium Direct Bilirubin ALT Alkaline Phosphatase Troponin T C-Reactive Protein Total Protein Albumin Triglycerides Cholesterol LDL Cholesterol Direct HDL Cholesterol Urine WBC (Auto) Urine Creatinine Urine Total Protein Vancomycin Trough Rheumatoid Factor Complement C4 Miscellaneous Test Crossmatch 10/13/16 10/13/16 10/13/16 06:22 09:20 12:29 WBC RBC Hgb Hct MCV MCH MCHC RDW Plt Count Lymph % (Auto) [place] % (Auto) Lymph # [place] # Baso # Seg Neutrophils % Seg Neuts % (Manual) Lymphocytes % (Manual) Monocytes % (Manual) Eosinophils % (Manual) Basophils % (Manual) Nucleated RBC % Seg Neutrophils # Seg Neutrophils # Man Lymphocytes # (Manual) Monocytes # (Manual) Eosinophils # (Manual) PT INR Fibrinogen dRVVT Confirm Interp Factor V Activity POC ABG pH POC ABG pCO2 POC ABG pO2 Sodium Potassium Chloride Carbon Dioxide BUN Creatinine Glucose POC Glucose 165 H 193 H Lactic Acid Calcium Phosphorus Magnesium Direct Bilirubin ALT Alkaline Phosphatase Troponin T C-Reactive Protein Total Protein Albumin Triglycerides Cholesterol LDL Cholesterol Direct HDL Cholesterol Urine WBC (Auto) Urine Creatinine Urine Total Protein Vancomycin Trough Rheumatoid Factor Complement C4 Miscellaneous Test Flexitest 1 H Crossmatch 10/13/16 10/13/16 10/13/16 18:09 Unknown Unknown WBC 23.4 H RBC 2.83 L Hgb 8.7 L Hct 26.1 L MCV MCH MCHC RDW 18.1 H Plt Count Lymph % (Auto) [place] % (Auto) Lymph # [place] # Baso # Seg Neutrophils % Seg Neuts % (Manual) Lymphocytes % (Manual) Monocytes % (Manual) Eosinophils % (Manual) Basophils % (Manual) Nucleated RBC % Seg Neutrophils # Seg Neutrophils # Man Lymphocytes # (Manual) Monocytes # (Manual) Eosinophils # (Manual) PT INR Fibrinogen dRVVT Confirm Interp Factor V Activity POC ABG pH POC ABG pCO2 POC ABG pO2 Sodium Potassium Chloride 95.8 L Carbon Dioxide BUN 82 H Creatinine 2.6 H Glucose 152 H POC Glucose 166 H Lactic Acid Calcium Phosphorus Magnesium Direct Bilirubin ALT Alkaline Phosphatase Troponin T C-Reactive Protein Total Protein Albumin Triglycerides Cholesterol LDL Cholesterol Direct HDL Cholesterol Urine WBC (Auto) Urine Creatinine Urine Total Protein Vancomycin Trough Rheumatoid Factor Complement C4 Miscellaneous Test Crossmatch 10/14/16 10/14/16 10/14/16 05:38 06:35 08:10 WBC 20.7 H RBC 2.81 L Hgb 8.4 L Hct 27.2 L MCV MCH MCHC RDW 19.4 H Plt Count Lymph % (Auto) [place] % (Auto) Lymph # [place] # Baso # Seg Neutrophils % Seg Neuts % (Manual) Lymphocytes % (Manual) Monocytes % (Manual) Eosinophils % (Manual) Basophils % (Manual) Nucleated RBC % Seg Neutrophils # Seg Neutrophils # Man Lymphocytes # (Manual) Monocytes # (Manual) Eosinophils # (Manual) PT INR Fibrinogen dRVVT Confirm Interp Factor V Activity POC ABG pH POC ABG pCO2 POC ABG pO2 Sodium Potassium Chloride Carbon Dioxide BUN 58 H Creatinine 1.9 H Glucose 169 H POC Glucose 195 H Lactic Acid Calcium Phosphorus Magnesium Direct Bilirubin ALT Alkaline Phosphatase Troponin T C-Reactive Protein Total Protein Albumin Triglycerides Cholesterol LDL Cholesterol Direct HDL Cholesterol Urine WBC (Auto) Urine Creatinine Urine Total Protein Vancomycin Trough Rheumatoid Factor Complement C4 Miscellaneous Test Crossmatch 10/14/16 10/14/16 10/14/16 11:44 17:13 23:28 WBC RBC Hgb Hct MCV MCH MCHC RDW Plt Count Lymph % (Auto) [place] % (Auto) Lymph # [place] # Baso # Seg Neutrophils % Seg Neuts % (Manual) Lymphocytes % (Manual) Monocytes % (Manual) Eosinophils % (Manual) Basophils % (Manual) Nucleated RBC % Seg Neutrophils # Seg Neutrophils # Man Lymphocytes # (Manual) Monocytes # (Manual) Eosinophils # (Manual) PT INR Fibrinogen dRVVT Confirm Interp Factor V Activity POC ABG pH POC ABG pCO2 POC ABG pO2 Sodium Potassium Chloride Carbon Dioxide BUN Creatinine Glucose POC Glucose 174 H 121 H 151 H Lactic Acid Calcium Phosphorus Magnesium Direct Bilirubin ALT Alkaline Phosphatase Troponin T C-Reactive Protein Total Protein Albumin Triglycerides Cholesterol LDL Cholesterol Direct HDL Cholesterol Urine WBC (Auto) Urine Creatinine Urine Total Protein Vancomycin Trough Rheumatoid Factor Complement C4 Miscellaneous Test Crossmatch 10/15/16 10/15/16 10/15/16 05:06 12:26 17:48 WBC RBC Hgb Hct MCV MCH MCHC RDW Plt Count Lymph % (Auto) [place] % (Auto) Lymph # [place] # Baso # Seg Neutrophils % Seg Neuts % (Manual) Lymphocytes % (Manual) Monocytes % (Manual) Eosinophils % (Manual) Basophils % (Manual) Nucleated RBC % Seg Neutrophils # Seg Neutrophils # Man Lymphocytes # (Manual) Monocytes # (Manual) Eosinophils # (Manual) PT INR Fibrinogen dRVVT Confirm Interp Factor V Activity POC ABG pH POC ABG pCO2 POC ABG pO2 Sodium Potassium Chloride Carbon Dioxide BUN Creatinine Glucose POC Glucose 151 H 149 H 153 H Lactic Acid Calcium Phosphorus Magnesium Direct Bilirubin ALT Alkaline Phosphatase Troponin T C-Reactive Protein Total Protein Albumin Triglycerides Cholesterol LDL Cholesterol Direct HDL Cholesterol Urine WBC (Auto) Urine Creatinine Urine Total Protein Vancomycin Trough Rheumatoid Factor Complement C4 Miscellaneous Test Crossmatch 10/15/16 10/15/16 10/16/16 Unknown Unknown 00:02 WBC 23.4 H RBC 2.78 L Hgb 8.5 L Hct 25.7 L MCV MCH MCHC RDW 18.7 H Plt Count Lymph % (Auto) [place] % (Auto) Lymph # [place] # Baso # Seg Neutrophils % Seg Neuts % (Manual) Lymphocytes % (Manual) Monocytes % (Manual) Eosinophils % (Manual) Basophils % (Manual) Nucleated RBC % Seg Neutrophils # Seg Neutrophils # Man Lymphocytes # (Manual) Monocytes # (Manual) Eosinophils # (Manual) PT INR Fibrinogen dRVVT Confirm Interp Factor V Activity POC ABG pH POC ABG pCO2 POC ABG pO2 Sodium Potassium Chloride Carbon Dioxide BUN 73 H Creatinine 2.3 H Glucose 120 H POC Glucose 137 H Lactic Acid Calcium Phosphorus Magnesium Direct Bilirubin ALT Alkaline Phosphatase Troponin T C-Reactive Protein Total Protein Albumin Triglycerides Cholesterol LDL Cholesterol Direct HDL Cholesterol Urine WBC (Auto) Urine Creatinine Urine Total Protein Vancomycin Trough Rheumatoid Factor Complement C4 Miscellaneous Test Crossmatch 10/16/16 10/16/16 10/16/16 05:44 06:25 06:25 WBC 22.5 H RBC 2.76 L Hgb 8.3 L Hct 25.2 L MCV MCH MCHC RDW 18.3 H Plt Count Lymph % (Auto) [place] % (Auto) Lymph # [place] # Baso # Seg Neutrophils % Seg Neuts % (Manual) Lymphocytes % (Manual) Monocytes % (Manual) Eosinophils % (Manual) Basophils % (Manual) Nucleated RBC % Seg Neutrophils # Seg Neutrophils # Man Lymphocytes # (Manual) Monocytes # (Manual) Eosinophils # (Manual) PT INR Fibrinogen dRVVT Confirm Interp Factor V Activity POC ABG pH POC ABG pCO2 POC ABG pO2 Sodium Potassium Chloride Carbon Dioxide BUN 92 H Creatinine 3.0 H Glucose 138 H POC Glucose 110 H Lactic Acid Calcium Phosphorus Magnesium Direct Bilirubin ALT Alkaline Phosphatase Troponin T C-Reactive Protein Total Protein Albumin Triglycerides Cholesterol LDL Cholesterol Direct HDL Cholesterol Urine WBC (Auto) Urine Creatinine Urine Total Protein Vancomycin Trough Rheumatoid Factor Complement C4 Miscellaneous Test Crossmatch 10/16/16 10/16/16 10/16/16 11:27 11:48 17:36 WBC RBC Hgb Hct MCV MCH MCHC RDW Plt Count Lymph % (Auto) [place] % (Auto) Lymph # [place] # Baso # Seg Neutrophils % Seg Neuts % (Manual) Lymphocytes % (Manual) Monocytes % (Manual) Eosinophils % (Manual) Basophils % (Manual) Nucleated RBC % Seg Neutrophils # Seg Neutrophils # Man Lymphocytes # (Manual) Monocytes # (Manual) Eosinophils # (Manual) PT INR Fibrinogen dRVVT Confirm Interp Factor V Activity POC ABG pH 7.582 H POC ABG pCO2 27.4 L POC ABG pO2 110 H Sodium Potassium Chloride Carbon Dioxide BUN Creatinine Glucose POC Glucose 121 H 133 H Lactic Acid Calcium Phosphorus Magnesium Direct Bilirubin ALT Alkaline Phosphatase Troponin T C-Reactive Protein Total Protein Albumin Triglycerides Cholesterol LDL Cholesterol Direct HDL Cholesterol Urine WBC (Auto) Urine Creatinine Urine Total Protein Vancomycin Trough Rheumatoid Factor Complement C4 Miscellaneous Test Crossmatch 10/16/16 10/17/16 10/17/16 20:48 04:24 04:24 WBC 21.4 H RBC 2.72 L Hgb 8.0 L Hct 25.2 L MCV MCH MCHC RDW 18.0 H Plt Count Lymph % (Auto) [place] % (Auto) Lymph # [place] # Baso # Seg Neutrophils % Seg Neuts % (Manual) Lymphocytes % (Manual) Monocytes % (Manual) Eosinophils % (Manual) Basophils % (Manual) Nucleated RBC % Seg Neutrophils # Seg Neutrophils # Man Lymphocytes # (Manual) Monocytes # (Manual) Eosinophils # (Manual) PT INR Fibrinogen dRVVT Confirm Interp Factor V Activity POC ABG pH 7.561 H POC ABG pCO2 24.4 L POC ABG pO2 77 L Sodium 148 H Potassium Chloride Carbon Dioxide BUN 104 H Creatinine 3.0 H Glucose 149 H POC Glucose Lactic Acid Calcium Phosphorus Magnesium Direct Bilirubin ALT Alkaline Phosphatase 138 H Troponin T C-Reactive Protein Total Protein 6.2 L Albumin 1.5 L Triglycerides Cholesterol LDL Cholesterol Direct HDL Cholesterol Urine WBC (Auto) Urine Creatinine Urine Total Protein Vancomycin Trough Rheumatoid Factor Complement C4 Miscellaneous Test Crossmatch 10/17/16 10/17/16 10/17/16 06:02 12:17 17:14 WBC RBC Hgb Hct MCV MCH MCHC RDW Plt Count Lymph % (Auto) [place] % (Auto) Lymph # [place] # Baso # Seg Neutrophils % Seg Neuts % (Manual) Lymphocytes % (Manual) Monocytes % (Manual) Eosinophils % (Manual) Basophils % (Manual) Nucleated RBC % Seg Neutrophils # Seg Neutrophils # Man Lymphocytes # (Manual) Monocytes # (Manual) Eosinophils # (Manual) PT INR Fibrinogen dRVVT Confirm Interp Factor V Activity POC ABG pH POC ABG pCO2 POC ABG pO2 Sodium Potassium Chloride Carbon Dioxide BUN Creatinine Glucose POC Glucose 170 H 167 H 126 H Lactic Acid Calcium Phosphorus Magnesium Direct Bilirubin ALT Alkaline Phosphatase Troponin T C-Reactive Protein Total Protein Albumin Triglycerides Cholesterol LDL Cholesterol Direct HDL Cholesterol Urine WBC (Auto) Urine Creatinine Urine Total Protein Vancomycin Trough Rheumatoid Factor Complement C4 Miscellaneous Test Crossmatch 10/17/16 10/18/16 10/18/16 23:17 04:00 04:00 WBC 20.7 H RBC 2.47 L Hgb 7.4 L Hct 22.9 L MCV MCH MCHC RDW 17.5 H Plt Count Lymph % (Auto) [place] % (Auto) Lymph # [place] # Baso # Seg Neutrophils % Seg Neuts % (Manual) Lymphocytes % (Manual) Monocytes % (Manual) Eosinophils % (Manual) Basophils % (Manual) Nucleated RBC % Seg Neutrophils # Seg Neutrophils # Man Lymphocytes # (Manual) Monocytes # (Manual) Eosinophils # (Manual) PT INR Fibrinogen dRVVT Confirm Interp Factor V Activity POC ABG pH POC ABG pCO2 POC ABG pO2 Sodium 149 H Potassium Chloride 107.9 H Carbon Dioxide 20 L BUN 117 H Creatinine 3.2 H Glucose 119 H POC Glucose 121 H Lactic Acid Calcium Phosphorus Magnesium Direct Bilirubin ALT Alkaline Phosphatase Troponin T C-Reactive Protein Total Protein Albumin Triglycerides Cholesterol LDL Cholesterol Direct HDL Cholesterol Urine WBC (Auto) Urine Creatinine Urine Total Protein Vancomycin Trough Rheumatoid Factor Complement C4 Miscellaneous Test Crossmatch 10/18/16 10/18/16 10/18/16 05:23 10:46 17:30 WBC RBC Hgb Hct MCV MCH MCHC RDW Plt Count Lymph % (Auto) [place] % (Auto) Lymph # [place] # Baso # Seg Neutrophils % Seg Neuts % (Manual) Lymphocytes % (Manual) Monocytes % (Manual) Eosinophils % (Manual) Basophils % (Manual) Nucleated RBC % Seg Neutrophils # Seg Neutrophils # Man Lymphocytes # (Manual) Monocytes # (Manual) Eosinophils # (Manual) PT INR Fibrinogen dRVVT Confirm Interp Factor V Activity POC ABG pH POC ABG pCO2 POC ABG pO2 Sodium Potassium Chloride Carbon Dioxide BUN Creatinine Glucose POC Glucose 119 H 155 H 124 H Lactic Acid Calcium Phosphorus Magnesium Direct Bilirubin ALT Alkaline Phosphatase Troponin T C-Reactive Protein Total Protein Albumin Triglycerides Cholesterol LDL Cholesterol Direct HDL Cholesterol Urine WBC (Auto) Urine Creatinine Urine Total Protein Vancomycin Trough Rheumatoid Factor Complement C4 Miscellaneous Test Crossmatch 10/19/16 10/19/16 10/19/16 04:00 04:00 05:25 WBC 17.4 H RBC 2.54 L Hgb 7.7 L Hct 23.6 L MCV MCH MCHC RDW 17.3 H Plt Count Lymph % (Auto) [place] % (Auto) Lymph # [place] # Baso # Seg Neutrophils % Seg Neuts % (Manual) Lymphocytes % (Manual) Monocytes % (Manual) Eosinophils % (Manual) Basophils % (Manual) Nucleated RBC % Seg Neutrophils # Seg Neutrophils # Man Lymphocytes # (Manual) Monocytes # (Manual) Eosinophils # (Manual) PT INR Fibrinogen dRVVT Confirm Interp Factor V Activity POC ABG pH POC ABG pCO2 POC ABG pO2 Sodium Potassium Chloride Carbon Dioxide BUN 72 H Creatinine 2.1 H Glucose 116 H POC Glucose 119 H Lactic Acid Calcium Phosphorus Magnesium Direct Bilirubin ALT Alkaline Phosphatase Troponin T C-Reactive Protein Total Protein Albumin Triglycerides Cholesterol LDL Cholesterol Direct HDL Cholesterol Urine WBC (Auto) Urine Creatinine Urine Total Protein Vancomycin Trough Rheumatoid Factor Complement C4 Miscellaneous Test Crossmatch 10/19/16 10/19/16 10/20/16 11:46 23:59 06:00 WBC RBC Hgb Hct MCV MCH MCHC RDW Plt Count Lymph % (Auto) [place] % (Auto) Lymph # [place] # Baso # Seg Neutrophils % Seg Neuts % (Manual) Lymphocytes % (Manual) Monocytes % (Manual) Eosinophils % (Manual) Basophils % (Manual) Nucleated RBC % Seg Neutrophils # Seg Neutrophils # Man Lymphocytes # (Manual) Monocytes # (Manual) Eosinophils # (Manual) PT INR Fibrinogen dRVVT Confirm Interp Factor V Activity POC ABG pH POC ABG pCO2 POC ABG pO2 Sodium Potassium Chloride Carbon Dioxide 17 L BUN 94 H Creatinine 2.7 H Glucose POC Glucose 116 H 117 H Lactic Acid Calcium Phosphorus Magnesium Direct Bilirubin ALT Alkaline Phosphatase Troponin T C-Reactive Protein Total Protein Albumin Triglycerides Cholesterol LDL Cholesterol Direct HDL Cholesterol Urine WBC (Auto) Urine Creatinine Urine Total Protein Vancomycin Trough Rheumatoid Factor Complement C4 Miscellaneous Test Crossmatch 10/20/16 10/20/16 10/20/16 06:00 11:49 16:00 WBC 19.7 H RBC 2.51 L Hgb 7.7 L Hct 23.5 L MCV MCH MCHC RDW 17.5 H Plt Count Lymph % (Auto) [place] % (Auto) Lymph # [place] # Baso # Seg Neutrophils % Seg Neuts % (Manual) Lymphocytes % (Manual) Monocytes % (Manual) Eosinophils % (Manual) Basophils % (Manual) Nucleated RBC % Seg Neutrophils # Seg Neutrophils # Man Lymphocytes # (Manual) Monocytes # (Manual) Eosinophils # (Manual) PT INR Fibrinogen dRVVT Confirm Interp Factor V Activity POC ABG pH POC ABG pCO2 POC ABG pO2 Sodium Potassium Chloride Carbon Dioxide BUN Creatinine Glucose POC Glucose 117 H Lactic Acid Calcium Phosphorus Magnesium Direct Bilirubin ALT Alkaline Phosphatase Troponin T C-Reactive Protein Total Protein Albumin Triglycerides Cholesterol LDL Cholesterol Direct HDL Cholesterol Urine WBC (Auto) Urine Creatinine Urine Total Protein Vancomycin Trough Rheumatoid Factor Complement C4 Miscellaneous Test Flexitest 1 H Crossmatch 10/20/16 10/20/16 10/21/16 18:36 23:39 04:00 WBC RBC Hgb Hct MCV MCH MCHC RDW Plt Count Lymph % (Auto) [place] % (Auto) Lymph # [place] # Baso # Seg Neutrophils % Seg Neuts % (Manual) Lymphocytes % (Manual) Monocytes % (Manual) Eosinophils % (Manual) Basophils % (Manual) Nucleated RBC % Seg Neutrophils # Seg Neutrophils # Man Lymphocytes # (Manual) Monocytes # (Manual) Eosinophils # (Manual) PT INR Fibrinogen dRVVT Confirm Interp Factor V Activity POC ABG pH POC ABG pCO2 POC ABG pO2 Sodium Potassium 5.4 H D Chloride Carbon Dioxide 15 L BUN 110 H Creatinine 3.0 H Glucose POC Glucose 127 H 114 H Lactic Acid Calcium Phosphorus Magnesium Direct Bilirubin ALT Alkaline Phosphatase Troponin T C-Reactive Protein Total Protein Albumin Triglycerides Cholesterol LDL Cholesterol Direct HDL Cholesterol Urine WBC (Auto) Urine Creatinine Urine Total Protein Vancomycin Trough Rheumatoid Factor Complement C4 Miscellaneous Test Crossmatch 10/21/16 10/21/16 10/22/16 05:54 23:46 05:18 WBC RBC Hgb Hct MCV MCH MCHC RDW Plt Count Lymph % (Auto) [place] % (Auto) Lymph # [place] # Baso # Seg Neutrophils % Seg Neuts % (Manual) Lymphocytes % (Manual) Monocytes % (Manual) Eosinophils % (Manual) Basophils % (Manual) Nucleated RBC % Seg Neutrophils # Seg Neutrophils # Man Lymphocytes # (Manual) Monocytes # (Manual) Eosinophils # (Manual) PT INR Fibrinogen dRVVT Confirm Interp Factor V Activity POC ABG pH POC ABG pCO2 POC ABG pO2 Sodium Potassium Chloride Carbon Dioxide BUN Creatinine Glucose POC Glucose 119 H 108 H 109 H Lactic Acid Calcium Phosphorus Magnesium Direct Bilirubin ALT Alkaline Phosphatase Troponin T C-Reactive Protein Total Protein Albumin Triglycerides Cholesterol LDL Cholesterol Direct HDL Cholesterol Urine WBC (Auto) Urine Creatinine Urine Total Protein Vancomycin Trough Rheumatoid Factor Complement C4 Miscellaneous Test Crossmatch 10/22/16 10/22/16 10/22/16 06:40 06:40 06:40 WBC 14.0 H RBC 2.03 L Hgb 7.0 L Hct 20.5 L MCV 98 H MCH 34 H MCHC 35 H RDW 17.8 H Plt Count Lymph % (Auto) [place] % (Auto) 9.9 H Lymph # [place] # 1.4 H Baso # 0.2 H Seg Neutrophils % 72.0 H Seg Neuts % (Manual) Lymphocytes % (Manual) Monocytes % (Manual) Eosinophils % (Manual) Basophils % (Manual) Nucleated RBC % Seg Neutrophils # 10.0 H Seg Neutrophils # Man Lymphocytes # (Manual) Monocytes # (Manual) Eosinophils # (Manual) PT INR Fibrinogen dRVVT Confirm Interp Factor V Activity POC ABG pH POC ABG pCO2 POC ABG pO2 Sodium 130 L D Potassium Chloride 92.4 L Carbon Dioxide 20 L BUN 50 H Creatinine 1.6 H Glucose 589 H* POC Glucose Lactic Acid Calcium 7.8 L D Phosphorus Magnesium 1.60 L Direct Bilirubin ALT Alkaline Phosphatase Troponin T C-Reactive Protein Total Protein Albumin Triglycerides Cholesterol LDL Cholesterol Direct HDL Cholesterol Urine WBC (Auto) Urine Creatinine Urine Total Protein Vancomycin Trough Rheumatoid Factor Complement C4 Miscellaneous Test Crossmatch 10/22/16 10/22/16 10/22/16 11:39 16:44 23:36 WBC RBC Hgb Hct MCV MCH MCHC RDW Plt Count Lymph % (Auto) [place] % (Auto) Lymph # [place] # Baso # Seg Neutrophils % Seg Neuts % (Manual) Lymphocytes % (Manual) Monocytes % (Manual) Eosinophils % (Manual) Basophils % (Manual) Nucleated RBC % Seg Neutrophils # Seg Neutrophils # Man Lymphocytes # (Manual) Monocytes # (Manual) Eosinophils # (Manual) PT INR Fibrinogen dRVVT Confirm Interp Factor V Activity POC ABG pH POC ABG pCO2 POC ABG pO2 Sodium Potassium Chloride Carbon Dioxide BUN Creatinine Glucose POC Glucose 142 H 163 H 123 H Lactic Acid Calcium Phosphorus Magnesium Direct Bilirubin ALT Alkaline Phosphatase Troponin T C-Reactive Protein Total Protein Albumin Triglycerides Cholesterol LDL Cholesterol Direct HDL Cholesterol Urine WBC (Auto) Urine Creatinine Urine Total Protein Vancomycin Trough Rheumatoid Factor Complement C4 Miscellaneous Test Crossmatch 10/23/16 10/23/16 10/23/16 04:58 06:00 12:12 WBC RBC Hgb Hct MCV MCH MCHC RDW Plt Count Lymph % (Auto) [place] % (Auto) Lymph # [place] # Baso # Seg Neutrophils % Seg Neuts % (Manual) Lymphocytes % (Manual) Monocytes % (Manual) Eosinophils % (Manual) Basophils % (Manual) Nucleated RBC % Seg Neutrophils # Seg Neutrophils # Man Lymphocytes # (Manual) Monocytes # (Manual) Eosinophils # (Manual) PT INR Fibrinogen dRVVT Confirm Interp Factor V Activity POC ABG pH POC ABG pCO2 POC ABG pO2 Sodium 133 L Potassium 3.5 L Chloride 96.1 L Carbon Dioxide 18 L BUN 76 H Creatinine 2.1 H Glucose POC Glucose 133 H 138 H Lactic Acid Calcium 8.3 L Phosphorus Magnesium Direct Bilirubin ALT Alkaline Phosphatase Troponin T C-Reactive Protein Total Protein Albumin Triglycerides Cholesterol LDL Cholesterol Direct HDL Cholesterol Urine WBC (Auto) Urine Creatinine Urine Total Protein Vancomycin Trough Rheumatoid Factor Complement C4 Miscellaneous Test Crossmatch 10/23/16 10/23/16 10/24/16 16:53 23:37 04:00 WBC RBC Hgb Hct MCV MCH MCHC RDW Plt Count Lymph % (Auto) [place] % (Auto) Lymph # [place] # Baso # Seg Neutrophils % Seg Neuts % (Manual) Lymphocytes % (Manual) Monocytes % (Manual) Eosinophils % (Manual) Basophils % (Manual) Nucleated RBC % Seg Neutrophils # Seg Neutrophils # Man Lymphocytes # (Manual) Monocytes # (Manual) Eosinophils # (Manual) PT INR Fibrinogen dRVVT Confirm Interp Factor V Activity POC ABG pH POC ABG pCO2 POC ABG pO2 Sodium 131 L Potassium Chloride 94.5 L Carbon Dioxide 19 L BUN 97 H Creatinine 2.6 H Glucose 110 H POC Glucose 125 H 123 H Lactic Acid Calcium 8.3 L Phosphorus Magnesium Direct Bilirubin ALT Alkaline Phosphatase Troponin T C-Reactive Protein Total Protein Albumin Triglycerides Cholesterol LDL Cholesterol Direct HDL Cholesterol Urine WBC (Auto) Urine Creatinine Urine Total Protein Vancomycin Trough Rheumatoid Factor Complement C4 Miscellaneous Test Crossmatch 10/24/16 10/24/16 10/24/16 07:49 11:39 17:52 WBC RBC Hgb 6.0 L Hct 19.7 L* MCV MCH MCHC RDW Plt Count Lymph % (Auto) [place] % (Auto) Lymph # [place] # Baso # Seg Neutrophils % Seg Neuts % (Manual) Lymphocytes % (Manual) Monocytes % (Manual) Eosinophils % (Manual) Basophils % (Manual) Nucleated RBC % Seg Neutrophils # Seg Neutrophils # Man Lymphocytes # (Manual) Monocytes # (Manual) Eosinophils # (Manual) PT INR Fibrinogen dRVVT Confirm Interp Factor V Activity POC ABG pH POC ABG pCO2 POC ABG pO2 Sodium Potassium Chloride Carbon Dioxide BUN Creatinine Glucose POC Glucose 106 H 158 H Lactic Acid Calcium Phosphorus Magnesium Direct Bilirubin ALT Alkaline Phosphatase Troponin T C-Reactive Protein Total Protein Albumin Triglycerides Cholesterol LDL Cholesterol Direct HDL Cholesterol Urine WBC (Auto) Urine Creatinine Urine Total Protein Vancomycin Trough Rheumatoid Factor Complement C4 Miscellaneous Test Crossmatch 10/24/16 10/24/16 10/24/16 20:00 22:27 Unknown WBC RBC Hgb 9.4 L D Hct 27.5 L D MCV MCH MCHC RDW Plt Count Lymph % (Auto) [place] % (Auto) Lymph # [place] # Baso # Seg Neutrophils % Seg Neuts % (Manual) Lymphocytes % (Manual) Monocytes % (Manual) Eosinophils % (Manual) Basophils % (Manual) Nucleated RBC % Seg Neutrophils # Seg Neutrophils # Man Lymphocytes # (Manual) Monocytes # (Manual) Eosinophils # (Manual) PT INR Fibrinogen dRVVT Confirm Interp Factor V Activity POC ABG pH POC ABG pCO2 POC ABG pO2 Sodium Potassium Chloride Carbon Dioxide BUN Creatinine Glucose POC Glucose 125 H Lactic Acid Calcium Phosphorus Magnesium Direct Bilirubin ALT Alkaline Phosphatase Troponin T C-Reactive Protein Total Protein Albumin Triglycerides Cholesterol LDL Cholesterol Direct HDL Cholesterol Urine WBC (Auto) Urine Creatinine Urine Total Protein Vancomycin Trough Rheumatoid Factor Complement C4 Miscellaneous Test Crossmatch See Detail 10/25/16 10/25/16 10/25/16 04:00 04:00 04:00 WBC 14.2 H RBC 2.98 L Hgb 9.0 L Hct 26.2 L MCV MCH MCHC RDW 16.6 H Plt Count Lymph % (Auto) [place] % (Auto) 10.7 H Lymph # [place] # 1.5 H Baso # Seg Neutrophils % 73.6 H Seg Neuts % (Manual) Lymphocytes % (Manual) Monocytes % (Manual) Eosinophils % (Manual) Basophils % (Manual) Nucleated RBC % Seg Neutrophils # 10.5 H Seg Neutrophils # Man Lymphocytes # (Manual) Monocytes # (Manual) Eosinophils # (Manual) PT INR Fibrinogen dRVVT Confirm Interp Factor V Activity POC ABG pH POC ABG pCO2 POC ABG pO2 Sodium 132 L Potassium Chloride 94.7 L Carbon Dioxide BUN 51 H Creatinine 1.6 H Glucose 130 H POC Glucose Lactic Acid Calcium 8.3 L Phosphorus 1.60 L D Magnesium Direct Bilirubin ALT Alkaline Phosphatase Troponin T C-Reactive Protein Total Protein Albumin Triglycerides Cholesterol LDL Cholesterol Direct HDL Cholesterol Urine WBC (Auto) Urine Creatinine Urine Total Protein Vancomycin Trough Rheumatoid Factor Complement C4 Miscellaneous Test Crossmatch 10/25/16 10/25/16 10/25/16 04:32 11:48 17:22 WBC RBC Hgb Hct MCV MCH MCHC RDW Plt Count Lymph % (Auto) [place] % (Auto) Lymph # [place] # Baso # Seg Neutrophils % Seg Neuts % (Manual) Lymphocytes % (Manual) Monocytes % (Manual) Eosinophils % (Manual) Basophils % (Manual) Nucleated RBC % Seg Neutrophils # Seg Neutrophils # Man Lymphocytes # (Manual) Monocytes # (Manual) Eosinophils # (Manual) PT INR Fibrinogen dRVVT Confirm Interp Factor V Activity POC ABG pH POC ABG pCO2 POC ABG pO2 Sodium Potassium Chloride Carbon Dioxide BUN Creatinine Glucose POC Glucose 124 H 171 H 120 H Lactic Acid Calcium Phosphorus Magnesium Direct Bilirubin ALT Alkaline Phosphatase Troponin T C-Reactive Protein Total Protein Albumin Triglycerides Cholesterol LDL Cholesterol Direct HDL Cholesterol Urine WBC (Auto) Urine Creatinine Urine Total Protein Vancomycin Trough Rheumatoid Factor Complement C4 Miscellaneous Test Crossmatch 10/26/16 10/26/16 10/26/16 04:54 07:06 07:06 WBC 16.9 H RBC 3.06 L Hgb 9.1 L Hct 26.9 L MCV MCH MCHC RDW 16.9 H Plt Count Lymph % (Auto) [place] % (Auto) Lymph # [place] # Baso # Seg Neutrophils % Seg Neuts % (Manual) 71.0 H Lymphocytes % (Manual) 5.0 L Monocytes % (Manual) 12.0 H Eosinophils % (Manual) Basophils % (Manual) Nucleated RBC % Seg Neutrophils # Seg Neutrophils # Man 12.0 H Lymphocytes # (Manual) 0.8 L Monocytes # (Manual) 2.0 H Eosinophils # (Manual) PT INR Fibrinogen dRVVT Confirm Interp Factor V Activity POC ABG pH POC ABG pCO2 POC ABG pO2 Sodium 135 L Potassium Chloride 97.1 L Carbon Dioxide BUN 73 H Creatinine 2.2 H Glucose 117 H POC Glucose 123 H Lactic Acid Calcium Phosphorus 1.70 L Magnesium Direct Bilirubin ALT Alkaline Phosphatase Troponin T C-Reactive Protein Total Protein Albumin Triglycerides Cholesterol LDL Cholesterol Direct HDL Cholesterol Urine WBC (Auto) Urine Creatinine Urine Total Protein Vancomycin Trough Rheumatoid Factor Complement C4 Miscellaneous Test Crossmatch 10/26/16 10/26/16 10/26/16 12:12 17:29 23:42 WBC RBC Hgb Hct MCV MCH MCHC RDW Plt Count Lymph % (Auto) [place] % (Auto) Lymph # [place] # Baso # Seg Neutrophils % Seg Neuts % (Manual) Lymphocytes % (Manual) Monocytes % (Manual) Eosinophils % (Manual) Basophils % (Manual) Nucleated RBC % Seg Neutrophils # Seg Neutrophils # Man Lymphocytes # (Manual) Monocytes # (Manual) Eosinophils # (Manual) PT INR Fibrinogen dRVVT Confirm Interp Factor V Activity POC ABG pH POC ABG pCO2 POC ABG pO2 Sodium Potassium Chloride Carbon Dioxide BUN Creatinine Glucose POC Glucose 126 H 161 H 118 H Lactic Acid Calcium Phosphorus Magnesium Direct Bilirubin ALT Alkaline Phosphatase Troponin T C-Reactive Protein Total Protein Albumin Triglycerides Cholesterol LDL Cholesterol Direct HDL Cholesterol Urine WBC (Auto) Urine Creatinine Urine Total Protein Vancomycin Trough Rheumatoid Factor Complement C4 Miscellaneous Test Crossmatch 10/27/16 10/27/16 10/27/16 05:03 06:30 06:30 WBC 13.9 H RBC 3.09 L Hgb 9.2 L Hct 27.5 L MCV MCH MCHC RDW 17.0 H Plt Count Lymph % (Auto) [place] % (Auto) Lymph # [place] # Baso # Seg Neutrophils % Seg Neuts % (Manual) 78.0 H Lymphocytes % (Manual) Monocytes % (Manual) Eosinophils % (Manual) Basophils % (Manual) Nucleated RBC % 2.0 H Seg Neutrophils # Seg Neutrophils # Man 10.8 H Lymphocytes # (Manual) Monocytes # (Manual) 1.0 H Eosinophils # (Manual) PT INR Fibrinogen dRVVT Confirm Interp Factor V Activity POC ABG pH POC ABG pCO2 POC ABG pO2 Sodium Potassium Chloride Carbon Dioxide BUN 40 H Creatinine 1.5 H Glucose 135 H POC Glucose 107 H Lactic Acid Calcium 8.3 L Phosphorus 1.30 L D Magnesium Direct Bilirubin ALT Alkaline Phosphatase Troponin T C-Reactive Protein Total Protein Albumin Triglycerides Cholesterol LDL Cholesterol Direct HDL Cholesterol Urine WBC (Auto) Urine Creatinine Urine Total Protein Vancomycin Trough Rheumatoid Factor Complement C4 Miscellaneous Test Crossmatch 10/27/16 10/27/16 10/27/16 13:27 18:07 23:40 WBC RBC Hgb Hct MCV MCH MCHC RDW Plt Count Lymph % (Auto) [place] % (Auto) Lymph # [place] # Baso # Seg Neutrophils % Seg Neuts % (Manual) Lymphocytes % (Manual) Monocytes % (Manual) Eosinophils % (Manual) Basophils % (Manual) Nucleated RBC % Seg Neutrophils # Seg Neutrophils # Man Lymphocytes # (Manual) Monocytes # (Manual) Eosinophils # (Manual) PT INR Fibrinogen dRVVT Confirm Interp Factor V Activity POC ABG pH POC ABG pCO2 POC ABG pO2 Sodium Potassium Chloride Carbon Dioxide BUN Creatinine Glucose POC Glucose 117 H 121 H 118 H Lactic Acid Calcium Phosphorus Magnesium Direct Bilirubin ALT Alkaline Phosphatase Troponin T C-Reactive Protein Total Protein Albumin Triglycerides Cholesterol LDL Cholesterol Direct HDL Cholesterol Urine WBC (Auto) Urine Creatinine Urine Total Protein Vancomycin Trough Rheumatoid Factor Complement C4 Miscellaneous Test Crossmatch 10/28/16 10/28/16 10/28/16 05:48 06:45 06:45 WBC 14.7 H RBC 3.05 L Hgb 9.0 L Hct 26.9 L MCV MCH MCHC RDW 16.8 H Plt Count Lymph % (Auto) 8.2 L [place] % (Auto) 8.4 H Lymph # [place] # 1.2 H Baso # Seg Neutrophils % 81.9 H Seg Neuts % (Manual) Lymphocytes % (Manual) Monocytes % (Manual) Eosinophils % (Manual) Basophils % (Manual) Nucleated RBC % Seg Neutrophils # 12.1 H Seg Neutrophils # Man Lymphocytes # (Manual) Monocytes # (Manual) Eosinophils # (Manual) PT INR Fibrinogen dRVVT Confirm Interp Factor V Activity POC ABG pH POC ABG pCO2 POC ABG pO2 Sodium Potassium Chloride Carbon Dioxide BUN 60 H Creatinine 1.9 H Glucose 120 H POC Glucose 114 H Lactic Acid Calcium Phosphorus Magnesium Direct Bilirubin ALT Alkaline Phosphatase Troponin T C-Reactive Protein Total Protein Albumin Triglycerides Cholesterol LDL Cholesterol Direct HDL Cholesterol Urine WBC (Auto) Urine Creatinine Urine Total Protein Vancomycin Trough Rheumatoid Factor Complement C4 Miscellaneous Test Crossmatch 10/28/16 10/28/16 10/29/16 17:08 23:50 05:10 WBC RBC Hgb Hct MCV MCH MCHC RDW Plt Count Lymph % (Auto) [place] % (Auto) Lymph # [place] # Baso # Seg Neutrophils % Seg Neuts % (Manual) Lymphocytes % (Manual) Monocytes % (Manual) Eosinophils % (Manual) Basophils % (Manual) Nucleated RBC % Seg Neutrophils # Seg Neutrophils # Man Lymphocytes # (Manual) Monocytes # (Manual) Eosinophils # (Manual) PT INR Fibrinogen dRVVT Confirm Interp Factor V Activity POC ABG pH POC ABG pCO2 POC ABG pO2 Sodium Potassium Chloride Carbon Dioxide BUN Creatinine Glucose POC Glucose 109 H 110 H 124 H Lactic Acid Calcium Phosphorus Magnesium Direct Bilirubin ALT Alkaline Phosphatase Troponin T C-Reactive Protein Total Protein Albumin Triglycerides Cholesterol LDL Cholesterol Direct HDL Cholesterol Urine WBC (Auto) Urine Creatinine Urine Total Protein Vancomycin Trough Rheumatoid Factor Complement C4 Miscellaneous Test Crossmatch 10/29/16 10/29/16 07:45 07:45 WBC 14.7 H RBC 3.15 L Hgb 9.3 L Hct 28.9 L MCV MCH MCHC RDW 17.0 H Plt Count Lymph % (Auto) 11.9 L [place] % (Auto) 8.6 H Lymph # [place] # 1.3 H Baso # Seg Neutrophils % 78.1 H Seg Neuts % (Manual) Lymphocytes % (Manual) Monocytes % (Manual) Eosinophils % (Manual) Basophils % (Manual) Nucleated RBC % Seg Neutrophils # 11.4 H Seg Neutrophils # Man Lymphocytes # (Manual) Monocytes # (Manual) Eosinophils # (Manual) PT INR Fibrinogen dRVVT Confirm Interp Factor V Activity POC ABG pH POC ABG pCO2 POC ABG pO2 Sodium Potassium 5.1 H Chloride Carbon Dioxide 19 L BUN 78 H Creatinine 2.2 H Glucose 116 H POC Glucose Lactic Acid Calcium Phosphorus Magnesium Direct Bilirubin ALT Alkaline Phosphatase Troponin T C-Reactive Protein Total Protein Albumin Triglycerides Cholesterol LDL Cholesterol Direct HDL Cholesterol Urine WBC (Auto) Urine Creatinine Urine Total Protein Vancomycin Trough Rheumatoid Factor Complement C4 Miscellaneous Test Crossmatch Chest x-ray: image reviewed Allied health notes reviewed: RT
--- NOTE | 2016-10-29 13:06 | Progress Note ---
Assessment and Plan Assessment: 1) Recurrent Sepsis: fever overnight at 101; likely abdominal wall abscess at surgical site versus drug fever -S/p multiple episodes of sepsis - initially due to presumed aspiration pneumonia, then septic episode on 09/23 from Candidemia. Then from - peritonitis from gastric perforation +/- UTI. Current septic episode from surgical site infection. -CRP 19 --> 22 -Procalcitonin=24 --> 16 --> 4.3 -repeat CT abdomen 10/25 no leak no abscess. +small brit pleural effusion, increased air bronchograms R>L, track to old PEG. Persistent wall thickening sigmoid colon. -repeat blood cx - neg -Wound cx from surgical site infection + MDR Pseudomonas and Silvia albicans 2) Peritonitis: from gastric perforation from dislodged PEG with significant ascites -S/P exlap, repair of gastric perforation with wedge gastrectomy, abdominal washout, drain placement on 10/05. 3) Candidemia: -Blood cultures positive for Silvia albicans on 09/23 -Blood cultures positive on 09/25 -Blood cutlures negative on 09/30 -PICC line changed on 10/03 -Source ? gastric perf (PEG placed on 09/20) +/- TPN +/- central lines -TTE 10/07 no vegetations -PICC exchanged on 10/03 -fully treated with micafungin for 14 days last day 10/13 4) CA-UTI s/p gutierrez exchanged 5) Diarrhea - ? etiology ? antibiotic-induced, not better 6) Initial presumed aspiration pneumonia 7) Presumed UTI: urine cx 09/23 multiple species 8) Respiratory failure s/p trach 9) Recent CVA-left MCA CVA 10) Uncontrolled HTN 11) Acute on CKD 12) Extensive back skin peeling ? burn from gastric secretions. Doubt allergic reaction 13) Severe anemia; ? from GI bleed Plan: -stop zosyn in view of persistent fever -day 9 of 14 -start cefepime -continue fluconazole day 10 of 14 I will rounding this weekend Thank you Dr Matias for your consultation, will follow up with you. Pauline Carias MD Infectious Diseases Specialist [facility] [id number] [phone] O [phone] Subjective Date of service: 10/29/16 Principal diagnosis: Acute resp failure on MVS; S/P Acute CVA; Acute Encephalopathy; JUANITA Interval history: fevet at 101, alert this am open eyes spontaneously, not following commands, tachycardic on the monitor, still on the vent via trach. Microbiology: Blood cultures: 09/13 neg 8 Silvia albicans 09/25 Silvia 09/29 neg 10/07 NGTD Urine cultures: 09/10 neg 09/13 neg 8/4 10-100K mixed species 10/07 pending Respiratory cultures: 09/07 neg 09/13 neg 8/ neg Wound cultures: 10/17 abd wall wound purulence + Pseudomonas MDR Stool cultures: Current Antimicrobials: fluconazole 10/19 zosyn 10/21 Previous Antimicrobials: Zosyn 10/07 Vancomycin PO 10/01 Metronidazole 09/25 Micafungin 09/27-10/13 Meropenem 10/10 Vanco 10/17 Objective - Exam Narrative Exam: General appearance: alert, non verbal, on the vent via trach no following commands Eyes: anicteric sclera, moist conjunctivae; PERRLA HENT: Atraumatic; oropharynx limited; Normal external ears. +NGT with greenish secretion Neck: +trach in place; supple, no thyromegaly or lymphadenopathy Lungs: brit loud rhonchi CV: tachycardic Abdomen: Soft, non-tender, +drain with purulent drainage, + diarrhea via rectal tube leaking. +old PEG site no drainage. Right sided Surgical site packed No drainage today Extremities: +peripheral edema no extremity lymphadenopathy Skin: sacral area wounds superficial no purulence Psych: somnolent . Neuro: somnolent non verbal on the vent. Lines: left arm PICC placed on 10/03 - Constitutional Vitals: Vital Signs Temp Pulse Resp BP Pulse Ox 98.6 F 117 H 29 H 192/114 100 10/29/16 12:00 10/29/16 12:51 10/29/16 10:31 10/29/16 12:51 10/29/16 12:51 Temperature -Last 24 Hours Temperature 98.6 F Temperature 101.1 F Temperature 100.4 F Temperature 98.5 F Temperature 98.9 F Temperature 99.2 F - Labs CBC & Chem 7: 10/29/16 07:45 10/29/16 07:45 Labs: Abnormal lab results 10/28/16 10/28/16 10/29/16 Range/Units 17:08 23:50 05:10 WBC (4.5-11.0) K/mm3 RBC (3.65-5.03) M/mm3 Hgb (10.1-14.3) gm/dl Hct (30.3-42.9) % RDW (13.2-15.2) % Lymph % (Auto) (13.4-35.0) % [place] % (Auto) (0.0-7.3) % [place] # (0.0-0.8) K/mm3 Seg Neutrophils % (40.0-70.0) % Seg Neutrophils # (1.8-7.7) K/mm3 Potassium (3.6-5.0) mmol/L Carbon Dioxide (22-30) mmol/L BUN (7-17) mg/dL Creatinine (0.7-1.2) mg/dL Glucose (65-100) mg/dL POC Glucose 109 H 110 H 124 H (70-105) 10/29/16 10/29/16 10/29/16 Range/Units 07:45 07:45 12:19 WBC 14.7 H (4.5-11.0) K/mm3 RBC 3.15 L (3.65-5.03) M/mm3 Hgb 9.3 L (10.1-14.3) gm/dl Hct 28.9 L (30.3-42.9) % RDW 17.0 H (13.2-15.2) % Lymph % (Auto) 11.9 L (13.4-35.0) % [place] % (Auto) 8.6 H (0.0-7.3) % [place] # 1.3 H (0.0-0.8) K/mm3 Seg Neutrophils % 78.1 H (40.0-70.0) % Seg Neutrophils # 11.4 H (1.8-7.7) K/mm3 Potassium 5.1 H (3.6-5.0) mmol/L Carbon Dioxide 19 L (22-30) mmol/L BUN 78 H (7-17) mg/dL Creatinine 2.2 H (0.7-1.2) mg/dL Glucose 116 H (65-100) mg/dL POC Glucose 118 H (70-105)
[2016-10-29] MEDS ORDERED: CATAPRES-TTS PATCH TD SCH (14:00)
[2016-10-29] MEDS: MAXIPIME/NS 2 GM/100 ML 2 GM/100 ML BAG IV SCH (14:10)
--- NOTE | 2016-10-29 15:23 | Progress Note ---
Assessment and Plan Assessment and plan: Probability of clinically significant life-threatening deterioration of the cardiovascular or respiratory symptoms requiring my direct and full attention. Also reviewing data. Physician consultation and orders. - Patient Problems (1) JUANITA (acute kidney injury) Current Visit: Yes Status: Acute (2) Acute CVA (cerebrovascular accident) Current Visit: Yes Status: Acute (3) Acute blood loss anemia Current Visit: Yes Status: Acute (4) Acute respiratory failure with hypoxia Current Visit: Yes Status: Acute (5) Aspiration pneumonia Current Visit: Yes Status: Acute Qualifiers: Aspiration pneumonia type: A Laterality: L Lung location: L (6) Fungemia Current Visit: Yes Status: Acute (7) Hypertensive emergency Current Visit: Yes Status: Acute (8) Type 2 diabetes mellitus Current Visit: Yes Status: Chronic Qualifiers: Diabetes mellitus complication status: D Diabetes mellitus complication detail: D Diabetic retinopathy severity: D Proliferative retinopathy type: P Diabetes mellitus macular edema: D 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 Unresponsive at present. Hoyt had severe sepsis and septic shock. Hospitalist Physical - Constitutional Vitals: Temp Pulse Resp BP Pulse Ox 98.6 F 119 H 25 H 181/107 100 10/29/16 12:00 10/29/16 14:01 10/29/16 14:01 10/29/16 14:01 10/29/16 14:01 General appearance: Present: no acute distress, obese, other (on vent, non- responsive) - EENT Eyes: Present: scleral icterus - Neck Neck: Present: supple, normal ROM - Respiratory Respiratory effort: normal Respiratory: bilateral: diminished, rales - Cardiovascular Rhythm: regular Heart Sounds: Present: S1 & S2 - Extremities Extremities: no ischemia, pulses intact, pulses symmetrical, No edema, normal temperature, normal color Peripheral Pulses: within normal limits - Abdominal General gastrointestinal: soft, non-tender, non-distended - Neurologic Neurologic: focal deficits, other (intubated sedated nonverbal.) Results - Labs CBC & Chem 7: 10/29/16 07:45 10/29/16 07:45 Labs: Laboratory Last Values WBC 14.7 K/mm3 (4.5-11.0) H 10/29/16 07:45 RBC 3.15 M/mm3 (3.65-5.03) L 10/29/16 07:45 Hgb 9.3 gm/dl (10.1-14.3) L 10/29/16 07:45 Hct 28.9 % (30.3-42.9) L 10/29/16 07:45 MCV 92 fl (79-97) 10/29/16 07:45 MCH 30 pg (28-32) 10/29/16 07:45 MCHC 32 % (30-34) 10/29/16 07:45 RDW 17.0 % (13.2-15.2) H 10/29/16 07:45 Plt Count 299 K/mm3 (140-440) 10/29/16 07:45 Lymph % (Auto) 11.9 % (13.4-35.0) L 10/29/16 07:45 [place] % (Auto) 8.6 % (0.0-7.3) H 10/29/16 07:45 Eos % (Auto) 0.8 % (0.0-4.3) 10/29/16 07:45 Baso % (Auto) 0.6 % (0.0-1.8) 10/29/16 07:45 Lymph # 1.7 K/mm3 (1.2-5.4) 10/29/16 07:45 [place] # 1.3 K/mm3 (0.0-0.8) H 10/29/16 07:45 Eos # 0.1 K/mm3 (0.0-0.4) 10/29/16 07:45 Baso # 0.1 K/mm3 (0.0-0.1) 10/29/16 07:45 Add Manual Diff Complete 10/27/16 06:30 Total Counted 100 10/27/16 06:30 Seg Neutrophils % 78.1 % (40.0-70.0) H 10/29/16 07:45 Seg Neuts % (Manual) 78.0 % (40.0-70.0) H 10/27/16 06:30 Band Neutrophils % 0 % 10/27/16 06:30 Lymphocytes % (Manual) 14.0 % (13.4-35.0) 10/27/16 06:30 Reactive Lymphs % (Man) 0 % 10/27/16 06:30 Monocytes % (Manual) 7.0 % (0.0-7.3) 10/27/16 06:30 Eosinophils % (Manual) 0 % (0.0-4.3) 10/27/16 06:30 Basophils % (Manual) 1.0 % (0.0-1.8) 10/27/16 06:30 Metamyelocytes % 0 % 10/27/16 06:30 Myelocytes % 0 % 10/27/16 06:30 Promyelocytes % 0 % 10/27/16 06:30 Blast Cells % 0 % 10/27/16 06:30 Nucleated RBC % 2.0 % (0.0-0.9) H 10/27/16 06:30 Seg Neutrophils # 11.4 K/mm3 (1.8-7.7) H 10/29/16 07:45 Seg Neutrophils # Man 10.8 K/mm3 (1.8-7.7) H 10/27/16 06:30 Band Neutrophils # 0.0 K/mm3 10/27/16 06:30 Lymphocytes # (Manual) 1.9 K/mm3 (1.2-5.4) 10/27/16 06:30 Abs React Lymphs (Man) 0.0 K/mm3 10/27/16 06:30 Monocytes # (Manual) 1.0 K/mm3 (0.0-0.8) H 10/27/16 06:30 Eosinophils # (Manual) 0.0 K/mm3 (0.0-0.4) 10/27/16 06:30 Basophils # (Manual) 0.1 K/mm3 (0.0-0.1) 10/27/16 06:30 Metamyelocytes # 0.0 K/mm3 10/27/16 06:30 Myelocytes # 0.0 K/mm3 10/27/16 06:30 Promyelocytes # 0.0 K/mm3 10/27/16 06:30 Blast Cells # 0.0 K/mm3 10/27/16 06:30 Pathologist Review 09/13/16 04:00 WBC Morphology Not Reportable 10/27/16 06:30 Hypersegmented Neuts Not Reportable 10/27/16 06:30 Hyposegmented Neuts Not Reportable 10/27/16 06:30 Hypogranular Neuts Not Reportable 10/27/16 06:30 Smudge Cells Not Reportable 10/27/16 06:30 Toxic Granulation Not Reportable 10/27/16 06:30 Toxic Vacuolation Not Reportable 10/27/16 06:30 Dohle Bodies Not Reportable 10/27/16 06:30 Pelger-Huet Anomaly Not Reportable 10/27/16 06:30 Jasmina Rods Not Reportable 10/27/16 06:30 Platelet Estimate Cons 10/27/16 06:30 Clumped Platelets Not Reportable 10/27/16 06:30 Plt Clumps, EDTA Not Reportable 10/27/16 06:30 Large Platelets Few 10/27/16 06:30 Giant Platelets Not Reportable 10/27/16 06:30 Platelet Satelliting Not Reportable 10/27/16 06:30 Plt Morphology Comment Not Reportable 10/27/16 06:30 RBC Morphology Not Reportable 10/27/16 06:30 Dimorphic RBCs Not Reportable 10/27/16 06:30 Polychromasia Not Reportable 10/27/16 06:30 Hypochromasia Not Reportable 10/27/16 06:30 Poikilocytosis Not Reportable 10/27/16 06:30 Anisocytosis 1+ 10/27/16 06:30 Microcytosis Not Reportable 10/27/16 06:30 Macrocytosis Not Reportable 10/27/16 06:30 Spherocytes Not Reportable 10/27/16 06:30 Pappenheimer Bodies Not Reportable 10/27/16 06:30 Sickle Cells Not Reportable 10/27/16 06:30 Target Cells Not Reportable 10/27/16 06:30 Tear Drop Cells Not Reportable 10/27/16 06:30 Ovalocytes Not Reportable 10/27/16 06:30 Stomatocytes Few 10/06/16 03:50 Helmet Cells Not Reportable 10/27/16 06:30 [facility] Bodies Not Reportable 10/27/16 06:30 [place] Rings Not Reportable 10/27/16 06:30 [place] Cells Not Reportable 10/27/16 06:30 Bite Cells Not Reportable 10/27/16 06:30 Crenated Cell Not Reportable 10/27/16 06:30 Elliptocytes Not Reportable 10/27/16 06:30 Acanthocytes (Spur) Not Reportable 10/27/16 06:30 Rouleaux Not Reportable 10/27/16 06:30 Hemoglobin C Crystals Not Reportable 10/27/16 06:30 Schistocytes Not Reportable 10/27/16 06:30 Malaria parasites Not Reportable 10/27/16 06:30 ESR > 140.0 mm/Hr (0-20) 09/08/16 11:48 Jun Bodies Not Reportable 10/27/16 06:30 Hem Pathologist Commnt No 10/27/16 06:30 PT 19.0 Sec. (12.2-14.9) H 10/09/16 03:45 INR 1.51 (0.87-1.13) H 10/09/16 03:45 APTT 33.0 Sec. (24.2-36.6) 10/09/16 03:45 Thrombin Time 16.8 Sec. (15.1-19.6) 09/03/16 00:10 Fibrinogen 750 mg/dl (211-480) H 09/08/16 11:48 Lupus Anticoagulant see below 09/12/16 09:59 LA PTT Baseline See scanned report 09/12/16 09:59 dRVVT Confirm Interp Positive (Negative) H 09/12/16 09:59 dRVVT Screen 50:50 See scanned report 09/12/16 09:59 dRVVT Mix Interpret See scanned report 09/12/16 09:59 Protein C Antigen 122 % (70-140) 09/08/16 15:35 Free Protein S 97 % normal (50-147) 09/08/16 15:35 Total Protein S 109 % (70-140) 09/08/16 15:35 Antithrombin III Ag 100 % (80-120) 09/08/16 15:35 Heparin Anti-Xa, Unfract Negative (Negative) 09/29/16 13:35 Factor V Activity 182 % (65-150) H 09/08/16 15:35 POC ABG pH 7.561 (7.35-7.45) H 10/16/16 20:48 POC ABG pCO2 24.4 (35-45) L 10/16/16 20:48 POC ABG pO2 77 (80-105) L 10/16/16 20:48 POC ABG HCO3 21.9 10/16/16 20:48 POC ABG Total CO2 23 10/16/16 20:48 POC ABG O2 Sat 97 10/16/16 20:48 POC ABG Base Excess 0 10/16/16 20:48 FiO2 25 % 10/16/16 20:48 Sodium 138 mmol/L (137-145) 10/29/16 07:45 Potassium 5.1 mmol/L (3.6-5.0) H 10/29/16 07:45 Chloride 99.2 mmol/L (98-107) 10/29/16 07:45 Carbon Dioxide 19 mmol/L (22-30) L 10/29/16 07:45 Anion Gap 25 mmol/L 10/29/16 07:45 BUN 78 mg/dL (7-17) H 10/29/16 07:45 Creatinine 2.2 mg/dL (0.7-1.2) H 10/29/16 07:45 Estimated GFR 29 ml/min 10/29/16 07:45 BUN/Creatinine Ratio 35.45 % 10/29/16 07:45 Glucose 116 mg/dL (65-100) H 10/29/16 07:45 POC Glucose 118 (70-105) H 10/29/16 12:19 Osmolality 351 Mosm/kg 09/16/16 11:47 Lactic Acid 4.50 mmol/L (0.7-2.0) H* 09/28/16 07:25 Calcium 8.7 mg/dL (8.4-10.2) 10/29/16 07:45 Phosphorus 4.40 mg/dL (2.5-4.5) 10/29/16 07:45 Magnesium 1.90 mg/dL (1.7-2.3) 10/29/16 07:45 Total Bilirubin 0.30 mg/dL (0.1-1.2) 10/17/16 04:24 Direct Bilirubin 0.3 mg/dL (0-0.2) H 10/10/16 05:00 Indirect Bilirubin 0.1 mg/dL 10/10/16 05:00 AST 39 units/L (5-40) 10/17/16 04:24 ALT 13 units/L (7-56) 10/17/16 04:24 Alkaline Phosphatase 138 units/L (35-129) H 10/17/16 04:24 Ammonia 27.0 umol/L (25-60) 09/07/16 08:37 Total Creatine Kinase 121 units/L (30-135) 09/29/16 20:12 CK-MB (CK-2) < 1.0 ng/mL (0.0-4.0) 09/29/16 20:12 CK-MB (CK-2) Rel Index 0.8 (0-4) 09/29/16 20:12 Troponin T 0.204 ng/mL (0.00-0.029) H* 09/29/16 20:12 C-Reactive Protein 15.80 mg/dL (0.00-1.30) H 10/11/16 04:15 Total Protein 6.2 g/dL (6.3-8.2) L 10/17/16 04:24 Albumin 1.5 g/dL (3.9-5) L 10/17/16 04:24 Albumin/Globulin Ratio 0.3 % 10/17/16 04:24 Triglycerides 137 mg/dL (2-149) 09/29/16 20:12 Cholesterol 31 mg/dL (50-199) L 09/29/16 20:12 LDL Cholesterol Direct 4 mg/dL (50-130) L 09/29/16 20:12 HDL Cholesterol 3 mg/dL (40-59) L 09/29/16 20:12 Cholesterol/HDL Ratio 10.33 % 09/29/16 20:12 Angiotensin Convert Enz See scanned report 09/08/16 11:48 Renin 0.99 ng/mL/h (0.25-5.82) 10/07/16 10:56 Aldosterone <1 ng/dL () 10/07/16 10:56 Aldosterone/Renin Dir see below 10/07/16 10:56 Serotonin Release Assay See scanned report 09/29/16 13:35 TSH 1.010 mlU/mL (0.270-4.200) 09/07/16 08:37 HCG, Qual Negative (Negative) 09/03/16 00:10 Urine Color [place] (Yellow) 10/07/16 18:30 Urine Turbidity Turbid (Clear) 10/07/16 18:30 Urine pH 7.0 (5.0-7.0) 10/07/16 18:30 Ur Specific [place] 1.012 (1.003-1.030) 10/07/16 18:30 Urine Protein 100 mg/dl mg/dL (Negative) 10/07/16 18:30 Urine Glucose (UA) Neg mg/dL (Negative) 10/07/16 18:30 Urine Ketones Neg mg/dL (Negative) 10/07/16 18:30 Urine Blood Lg (Negative) 10/07/16 18:30 Urine Nitrite Neg (Negative) 10/07/16 18:30 Urine Bilirubin Neg (Negative) 10/07/16 18:30 Urine Urobilinogen < 2.0 mg/dL (<2.0) 10/07/16 18:30 Ur Leukocyte Esterase Lg (Negative) 10/07/16 18:30 Urine WBC (Auto) > 182.0 /HPF (0.0-6.0) H 10/07/16 18:30 Urine RBC (Auto) > 182.0 /HPF (0.0-6.0) 10/07/16 18:30 U Epithel Cells (Auto) 1.0 /HPF (0-13.0) 10/07/16 18:30 Urine Bacteria (Auto) 3+ /HPF (Negative) 10/07/16 18:30 Urine WBC Clumps 2+ /HPF 09/07/16 02:47 Hyaline Casts 4 /LPF 09/07/16 02:47 Urine Mucus Few /HPF 10/07/16 18:30 Urine Yeast (Budding) 3+ /HPF 10/07/16 18:30 Urine Eosinophils None seen (None Seen) 09/07/16 16:00 Urine Total Volume TNR 10/29/16 07:45 Urine Creatinine TNR 10/29/16 07:45 Height (in) TNR 10/29/16 07:45 Weight (lb) TNR 10/29/16 07:45 Creatinine Clearance TNR 10/29/16 07:45 Urine Sodium 36 mEq/L 09/16/16 19:19 Urine Total Protein 16 mg/dL (5-11.8) H 09/16/16 19:19 Vancomycin Trough 2.3 ug/mL (5.0-20.0) L 09/21/16 13:00 Random Vancomycin 17.0 ug/mL (0-40.0) 10/20/16 06:00 Urine Opiates Screen Presumptive negative 09/03/16 15:11 Urine Methadone Screen Presumptive positive 09/03/16 15:11 Ur Barbiturates Screen Presumptive positive 09/03/16 15:11 Ur Phencyclidine Scrn Presumptive negative 09/03/16 15:11 Ur Amphetamines Screen Presumptive negative 09/03/16 15:11 U Benzodiazepines Scrn Presumptive negative 09/03/16 15:11 Urine Cocaine Screen Presumptive negative 09/03/16 15:11 U Marijuana (THC) Screen Presumptive positive 09/03/16 15:11 Drugs of Abuse Note Disclamer 09/03/16 15:11 Rheumatoid Factor 24 IU/ml (0-13) H 09/08/16 11:48 SAHIL Screen Negative (Negative) 09/07/16 09:20 Proteinase 3 (PR3) Ab <1.0 AI (<1.0) 09/07/16 09:20 Myeloperoxidase Ab <1.0 AI (<1.0) 09/07/16 09:20 Sjogren's Antibody <1.0 AI (<1.0) 09/08/16 15:35 Scl-70 Scleroderma Ab <1.0 AI (<1.0) 09/08/16 15:35 Centromere B Antibody <1.0 AI (<1.0) 09/08/16 12:02 Heparin-induced Plt Ab Negative (Negative) 09/29/16 13:35 UF Heparin High Dose 11 % Release 09/29/16 13:35 SUDHIR UFH Low Dose 0.1 6 % Release 09/29/16 13:35 SUDHIR UFH Low Dose 0.5 8 % Release 09/29/16 13:35 Cardiolipid IgG Ab <14 GPL (<=14) 09/12/16 09:59 Cardiolipid IgA Ab <11 APL (<=11) 09/12/16 09:59 Cardiolipid IgM Ab <12 MPL (<=12) 09/12/16 09:59 Complement C3 148 mg/dL (90-180) 09/07/16 09:20 Complement C4 58 mg/dL (16-47) H 09/07/16 09:20 RPR Nonreactive (Nonreactive) 09/08/16 11:48 Hepatitis A IgM Ab Non-reactive (NonReactive) 09/24/16 14:40 Hep Bs Antigen Non-reactive (Negative) 09/24/16 14:40 Hep B Core IgM Ab Non-reactive (NonReactive) 09/24/16 14:40 Hepatitis C Antibody Non-reactive (NonReactive) 09/24/16 14:40 HIV 1&2 Antibody Rapid Non react (Non React) 09/08/16 11:48 HIV P24 Antigen Non react (Non React) 09/08/16 11:48 Miscellaneous Test Flexitest 1 H 10/20/16 16:00 Blood Type A POSITIVE 10/24/16 Unknown Antibody Screen Negative 10/24/16 Unknown DELORIS Antibody Screen Negative 09/25/16 10:30 Crossmatch See Detail 10/24/16 Unknown - Imaging and Cardiology EKG: image reviewed Chest x-ray: image reviewed MRI - abdomen: report reviewed
[2016-10-29] MEDS: ALBURX 25% (ALBUMIN) IV SCH ×2 (17:59→21:09)
[2016-10-29] MEDS: LASIX IV SCH (18:08)
[2016-10-29] MEDS: DIFLUCAN 200 MG/100 ML BAG IV SCH (18:17)
[2016-10-29] MEDS: DURAGESIC TD SCH (18:18)
[2016-10-29] MEDS ORDERED: TPN ADULT 2,016 ML IV SCH (20:00)
[2016-10-30] MEDS: MORPHINE IV PRN ×2 (00:15→03:15)
[2016-10-30] MEDS: ZOFRAN IV PRN (00:16)
[2016-10-30] MEDS ORDERED: D50W (25GM) Syringe IV ONE (01:06)
[2016-10-30] MEDS: LOPRESSOR IV SCH ×6 (01:15→21:48)
[2016-10-30] MEDS: APRESOLINE IV PRN ×2 (03:17→21:14)
[2016-10-30 03:48] LABS: Basophils # (Auto) 0.1 K/mm3 (0.0-0.1); Basophils % (Auto) 1.1 % (0.0-1.8); Eosinophils # (Auto) 0.2 K/mm3 (0.0-0.4); Eosinophils % (Auto) 1.4 % (0.0-4.3); Hematocrit 24.2 % (30.3-42.9); Hemoglobin 7.9 gm/dl (10.1-14.3); Lymphocytes # (Auto) 1.6 K/mm3 (1.2-5.4); Lymphocytes % (Auto) 13.5 % (13.4-35.0); Mean Corpuscular HGB Conc 33 % (30-34); Mean Corpuscular Hemoglobin 29 pg (28-32); Mean Corpuscular Volume 88 fl (79-97); Monocytes # (Auto) 1.1 K/mm3 (0.0-0.8); Monocytes % (Auto) 9.8 % (0.0-7.3); Platelet Count 236 K/mm3 (140-440); Red Blood Count 2.75 M/mm3 (3.65-5.03); Red Cell Distribution Width 16.7 % (13.2-15.2)
[2016-10-30 04:21] LABS: Calcium 8.6 mg/dL (8.4-10.2)
[2016-10-30] MEDS: LASIX IV SCH ×2 (05:24→18:54)
[2016-10-30] MEDS: HumuLIN R SUB-Q SCH ×4 (06:00→18:00)
[2016-10-30] MEDS: PROTONIX IV SCH (10:00)
[2016-10-30] MEDS: ALBURX 25% (ALBUMIN) IV SCH ×2 (10:39→18:52)
[2016-10-30] MEDS: MAXIPIME/NS 2 GM/100 ML 2 GM/100 ML BAG IV SCH (10:40)
[2016-10-30 10:41] LABS: Hematocrit 25.2 % (30.3-42.9); Hemoglobin 8.3 gm/dl (10.1-14.3); Mean Corpuscular HGB Conc 33 % (30-34); Mean Corpuscular Hemoglobin 29 pg (28-32); Mean Corpuscular Volume 89 fl (79-97); Platelet Count 241 K/mm3 (140-440); Red Blood Count 2.82 M/mm3 (3.65-5.03); Red Cell Distribution Width 17.2 % (13.2-15.2)
[2016-10-30 11:03] LABS: BUN/Creatinine Ratio 35.76; Calcium 8.9 mg/dL (8.4-10.2)
--- NOTE | 2016-10-30 11:55 | Progress Note ---
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 Shall increase the dose for albumin with Lasix * Shall schedule her again for hemodialysis tomorrow morning * Rate control per cardiology * Abx/antifungal per ID * Vent management per critical care * Dose medications for renal function * Avoid potential nephrotoxins Subjective Date of service: 10/30/16 Principal diagnosis: Acute resp failure on MVS; S/P Acute CVA; Acute Encephalopathy; JUANITA Interval history: Patient is currently on T piece . Opens her eyes. Objective - Vital Signs Vital signs: Vital Signs - 12hr 10/29/16 10/30/16 10/30/16 23:56 00:00 00:01 Temperature 98.7 F Pulse Rate 119 H 120 H Pulse Rate [ 137 H From Monitor] Respiratory 31 H 29 H Rate Respiratory Rate [ Generalized] Blood Pressure 186/112 186/113 O2 Sat by Pulse 99 Oximetry O2 Sat by Pulse Oximetry [ Assessment] 10/30/16 10/30/16 10/30/16 00:15 00:31 00:45 Temperature Pulse Rate 123 H Pulse Rate [ From Monitor] Respiratory 31 H 29 H 27 H Rate Respiratory Rate [ Generalized] Blood Pressure 166/98 O2 Sat by Pulse 100 Oximetry O2 Sat by Pulse Oximetry [ Assessment] 10/30/16 10/30/16 10/30/16 01:01 01:15 01:31 Temperature Pulse Rate 125 H 124 H 112 H Pulse Rate [ From Monitor] Respiratory 28 H 29 H Rate Respiratory Rate [ Generalized] Blood Pressure 176/101 176/101 166/98 O2 Sat by Pulse 100 99 Oximetry O2 Sat by Pulse Oximetry [ Assessment] 10/30/16 10/30/16 10/30/16 02:01 02:31 03:01 Temperature Pulse Rate 110 H 117 H 127 H Pulse Rate [ From Monitor] Respiratory 25 H 27 H 33 H Rate Respiratory Rate [ Generalized] Blood Pressure 170/91 174/94 189/105 O2 Sat by Pulse 99 100 99 Oximetry O2 Sat by Pulse Oximetry [ Assessment] 10/30/16 10/30/16 10/30/16 03:06 03:15 03:17 Temperature Pulse Rate 118 H 117 H Pulse Rate [ From Monitor] Respiratory 29 H Rate Respiratory Rate [ Generalized] Blood Pressure 189/105 189/105 O2 Sat by Pulse 99 Oximetry O2 Sat by Pulse Oximetry [ Assessment] 10/30/16 10/30/16 10/30/16 03:31 03:45 04:00 Temperature 99.7 F H Pulse Rate 123 H Pulse Rate [ 119 H From Monitor] Respiratory 27 H 28 H 19 Rate Respiratory Rate [ Generalized] Blood Pressure 173/98 O2 Sat by Pulse 98 Oximetry O2 Sat by Pulse Oximetry [ Assessment] 10/30/16 10/30/16 10/30/16 04:01 04:30 05:00 Temperature Pulse Rate 132 H 128 H 129 H Pulse Rate [ From Monitor] Respiratory 28 H 30 H 35 H Rate Respiratory Rate [ Generalized] Blood Pressure 173/98 193/104 204/120 O2 Sat by Pulse 99 99 99 Oximetry O2 Sat by Pulse Oximetry [ Assessment] 10/30/16 10/30/16 10/30/16 05:26 05:30 06:00 Temperature Pulse Rate 125 H 114 H 115 H Pulse Rate [ From Monitor] Respiratory 28 H 28 H Rate Respiratory Rate [ Generalized] Blood Pressure 195/110 202/113 203/123 O2 Sat by Pulse 100 100 Oximetry O2 Sat by Pulse Oximetry [ Assessment] 10/30/16 10/30/16 10/30/16 06:30 07:00 07:21 Temperature 99.3 F Pulse Rate 116 H 115 H Pulse Rate [ From Monitor] Respiratory 32 H 28 H Rate Respiratory Rate [ Generalized] Blood Pressure 196/108 178/105 O2 Sat by Pulse 99 100 Oximetry O2 Sat by Pulse Oximetry [ Assessment] 10/30/16 10/30/16 10/30/16 07:30 08:00 08:27 Temperature Pulse Rate 119 H 120 H 124 H Pulse Rate [ From Monitor] Respiratory 28 H 26 H Rate Respiratory Rate [ Generalized] Blood Pressure 186/103 184/105 184/105 O2 Sat by Pulse 99 98 100 Oximetry O2 Sat by Pulse Oximetry [ Assessment] 10/30/16 10/30/16 10/30/16 08:30 08:44 08:45 Temperature Pulse Rate 124 H 122 H Pulse Rate [ From Monitor] Respiratory 29 H Rate Respiratory Rate [ Generalized] Blood Pressure 172/93 172/93 O2 Sat by Pulse 99 97 97 Oximetry O2 Sat by Pulse 96 Oximetry [ Assessment] 10/30/16 10/30/16 10/30/16 09:00 09:30 10:00 Temperature Pulse Rate 121 H 124 H 113 H Pulse Rate [ From Monitor] Respiratory 36 H 35 H Rate Respiratory 21 Rate [ Generalized] Blood Pressure 171/96 192/99 O2 Sat by Pulse 97 99 Oximetry O2 Sat by Pulse Oximetry [ Assessment] 10/30/16 10/30/16 10/30/16 10:01 10:30 10:40 Temperature Pulse Rate 124 H Pulse Rate [ From Monitor] Respiratory 41 H Rate Respiratory Rate [ Generalized] Blood Pressure 188/99 201/101 O2 Sat by Pulse 93 95 Oximetry O2 Sat by Pulse Oximetry [ Assessment] 10/30/16 10/30/16 11:31 11:41 Temperature 99.5 F Pulse Rate 123 H Pulse Rate [ From Monitor] Respiratory 35 H Rate Respiratory Rate [ Generalized] Blood Pressure 186/92 O2 Sat by Pulse 97 Oximetry O2 Sat by Pulse Oximetry [ Assessment] - General Appearance General appearance: well-developed, well-nourished, appears stated age EENT: PERRL, mucous membranes moist Neck: no JVD, no thyromegaly, no carotid bruit, supple, other (on the ventilator via tracheostomy) Respiratory: Present: Ronchi (bilateral scattered rhonchi) Cardiology: regular, normal heart rate Gastrointestinal: normal, normoactive bowel sounds Integumentary: no rash, other (1+ edema) - Lab 10/30/16 08:19 10/30/16 08:19 Most recent lab results Calcium 8.9 mg/dL (8.4-10.2) 10/30/16 08:19 Phosphorus 5.20 mg/dL (2.5-4.5) H 10/30/16 03:28 Magnesium 1.90 mg/dL (1.7-2.3) 10/29/16 07:45 Urine Creatinine TNR 10/29/16 07:45 Urine Sodium 36 mEq/L 09/16/16 19:19 Urine Total Protein 16 mg/dL (5-11.8) H 09/16/16 19:19
[2016-10-30] MEDS ORDERED: NACL 0.9% 100 ML IV PRN (11:58)
--- NOTE | 2016-10-30 12:07 | Progress Note ---
Assessment and Plan Assessment: 1) Recurrent Sepsis: resolved fever; likely abdominal wall abscess at surgical site versus drug fever -S/p multiple episodes of sepsis - initially due to presumed aspiration pneumonia, then septic episode on 09/23 from Candidemia. Then from - peritonitis from gastric perforation +/- UTI. Current septic episode from surgical site infection. -CRP 19 --> 22 -Procalcitonin=24 --> 16 --> 4.3 -repeat CT abdomen 10/25 no leak no abscess. +small brit pleural effusion, increased air bronchograms R>L, track to old PEG. Persistent wall thickening sigmoid colon. -repeat blood cx - neg -Wound cx from surgical site infection + MDR Pseudomonas and Silvia albicans 2) Peritonitis: from gastric perforation from dislodged PEG with significant ascites -S/P exlap, repair of gastric perforation with wedge gastrectomy, abdominal washout, drain placement on 10/05. 3) Candidemia: -Blood cultures positive for Silvia albicans on 09/23 -Blood cultures positive on 09/25 -Blood cultures negative on 09/30 -PICC line changed on 10/03 -Source ? gastric perf (PEG placed on 09/20) +/- TPN +/- central lines -TTE 10/07 no vegetations -PICC exchanged on 10/03 -fully treated with micafungin for 14 days last day 10/13 4) CA-UTI s/p gutierrez exchanged 5) Diarrhea - ? etiology ? antibiotic-induced, not better 6) Initial presumed aspiration pneumonia 7) Presumed UTI: urine cx 09/23 multiple species 8) Respiratory failure s/p trach 9) Recent CVA-left MCA CVA 10) Uncontrolled HTN 11) Acute on CKD 12) Extensive back skin peeling ? burn from gastric secretions. Doubt allergic reaction 13) Severe anemia; ? from GI bleed Plan: -continue cefepime and fluconazole day 11 of 14 I will rounding this weekend Thank you Dr Matias for your consultation, will follow up with you. Pauline Carias MD Infectious Diseases Specialist [facility] M [phone] O [phone] Subjective Date of service: 10/30/16 Principal diagnosis: Acute resp failure on MVS; S/P Acute CVA; Acute Encephalopathy; JUANITA Interval history: Fever resolved, alert this am open eyes spontaneously, not following commands, tachycardic on the monitor, still on the vent via trach. Microbiology: Blood cultures: 09/13 neg 8 Silvia albicans 09/25 Silvia 09/29 neg 10/07 NGTD Urine cultures: 09/10 neg 09/13 neg 8/ 10-100K mixed species 10/07 pending Respiratory cultures: 09/07 neg 09/13 neg 8/4 neg Wound cultures: 10/17 abd wall wound purulence + Pseudomonas MDR Stool cultures: Current Antimicrobials: fluconazole 10/19 zosyn 10/21 Previous Antimicrobials: Zosyn 10/07 Vancomycin PO 10/01 Metronidazole 09/25 Micafungin 09/27-10/13 Meropenem 10/10 Vanco 10/17 Objective - Exam Narrative Exam: General appearance: alert, non verbal, on the vent via trach no following commands Eyes: anicteric sclera, moist conjunctivae; PERRLA HENT: Atraumatic; oropharynx limited; Normal external ears. +NGT with greenish secretion Neck: +trach in place; supple, no thyromegaly or lymphadenopathy Lungs: brit loud rhonchi CV: tachycardic Abdomen: Soft, non-tender, +drain with purulent drainage, + diarrhea via rectal tube leaking. +old PEG site no drainage. Right sided Surgical site packed No drainage today Extremities: +peripheral edema no extremity lymphadenopathy Skin: sacral area wounds superficial no purulence Psych: somnolent . Neuro: somnolent non verbal on the vent. Lines: left arm PICC placed on 10/03 - Constitutional Vitals: Vital Signs Temp Pulse Resp BP Pulse Ox 99.5 F 123 H 35 H 186/92 97 10/30/16 11:41 10/30/16 11:31 10/30/16 11:31 10/30/16 11:31 10/30/16 11:31 Temperature -Last 24 Hours Temperature 99.5 F Temperature 99.3 F Temperature 99.7 F Temperature 98.7 F Temperature 98.4 F Temperature 98.9 F - Labs CBC & Chem 7: 10/30/16 08:19 10/30/16 08:19 Labs: Abnormal lab results 10/29/16 10/29/16 10/30/16 Range/Units 12:19 17:49 01:52 WBC (4.5-11.0) K/mm3 RBC (3.65-5.03) M/mm3 Hgb (10.1-14.3) gm/dl Hct (30.3-42.9) % RDW (13.2-15.2) % [place] % (Auto) (0.0-7.3) % [place] # (0.0-0.8) K/mm3 Seg Neutrophils % (40.0-70.0) % Seg Neutrophils # (1.8-7.7) K/mm3 Potassium (3.6-5.0) mmol/L Chloride (98-107) mmol/L Carbon Dioxide (22-30) mmol/L BUN (7-17) mg/dL Creatinine (0.7-1.2) mg/dL POC Glucose 118 H 120 H 129 H (70-105) Phosphorus (2.5-4.5) mg/dL 10/30/16 10/30/16 10/30/16 Range/Units 03:28 03:28 08:19 WBC 11.6 H 15.9 H (4.5-11.0) K/mm3 RBC 2.75 L 2.82 L (3.65-5.03) M/mm3 Hgb 7.9 L 8.3 L (10.1-14.3) gm/dl Hct 24.2 L 25.2 L (30.3-42.9) % RDW 16.7 H 17.2 H (13.2-15.2) % [place] % (Auto) 9.8 H (0.0-7.3) % [place] # 1.1 H (0.0-0.8) K/mm3 Seg Neutrophils % 74.2 H (40.0-70.0) % Seg Neutrophils # 8.6 H (1.8-7.7) K/mm3 Potassium 5.4 H (3.6-5.0) mmol/L Chloride 97.5 L (98-107) mmol/L Carbon Dioxide 19 L (22-30) mmol/L BUN 90 H (7-17) mg/dL Creatinine 2.5 H (0.7-1.2) mg/dL POC Glucose (70-105) Phosphorus 5.20 H (2.5-4.5) mg/dL 10/30/16 Range/Units 08:19 WBC (4.5-11.0) K/mm3 RBC (3.65-5.03) M/mm3 Hgb (10.1-14.3) gm/dl Hct (30.3-42.9) % RDW (13.2-15.2) % [place] % (Auto) (0.0-7.3) % [place] # (0.0-0.8) K/mm3 Seg Neutrophils % (40.0-70.0) % Seg Neutrophils # (1.8-7.7) K/mm3 Potassium 5.3 H (3.6-5.0) mmol/L Chloride 97.4 L (98-107) mmol/L Carbon Dioxide 19 L (22-30) mmol/L BUN 93 H (7-17) mg/dL Creatinine 2.6 H (0.7-1.2) mg/dL POC Glucose (70-105) Phosphorus (2.5-4.5) mg/dL
[2016-10-30] MEDS ORDERED: NORMODYNE IV PRN ×2 (12:34→13:00)
[2016-10-30] MEDS ORDERED: NORMODYNE IV ONE (12:40)
--- NOTE | 2016-10-30 13:18 | Progress Note ---
Assessment and Plan (1) Acute respiratory failure with hypoxia Current Visit: Yes Status: Acute Plan to address problem: - continue aspiration precautions - continue to wean oxygen for MAP > 94% - continue bronchodilators and pulmonary toilet - s/p tracheostomy - not tolerating weaning today - resume trials in am as tolerated - CXR reveals mild volume overload pattern and will treat conservatively with HD /UF - resume scopolamine (2) Acute CVA (cerebrovascular accident) Current Visit: Yes Status: Acute Plan to address problem: - out of tpA window (initially stopped due to uncontrolled HTN) - Left MCA teritory stroke with some midline shift on last CT - seen by neurology and prognosis for recovery of mental status guarded to poor - optimizing secondary prevention modalities now (BP, lipid anti-platelet therapy) - off systemic steroids now (started earlier for edema) - clinically about the same (3) Hypertensive emergency Current Visit: Yes Status: Acute Plan to address problem: - stopped all antihypertensives while septic prior - BP's running high today - on scheduled IV metoprolol with prn IV hydralazine - clonidine patch was placed (0.1mg patch) but BP's still high - increased patch dosing to 0.2mg - will schedule oral amlodipine - added prn labetalol (4) Obesity (BMI 35.0-39.9 without comorbidity) Current Visit: Yes Status: Chronic Plan to address problem: - nutrition consult placed for enteral formulation - on TPN now - following clinically (5) Type 2 diabetes mellitus Current Visit: Yes Status: Chronic Qualifiers: Diabetes mellitus complication status: D Diabetes mellitus complication detail: D Diabetic retinopathy severity: D Proliferative retinopathy type: P Diabetes mellitus macular edema: D Diabetes mellitus nursing home insulin use : D Laterality: L Chronic kidney disease stage: C Plan to address problem: - continue SSI - discontinued lantus re: hypoglycemia - target BG's <180 mg/dl (6) Leukocytosis (leucocytosis) Current Visit: Yes Status: Acute Qualifiers: Leukocytosis type: leukemoid reaction Qualified Code(s): D72.823 - Leukemoid reaction Plan to address problem: - completed cancidas and de-escalate per ID recs - leucocytosis persistent but now trending down - on zosyn and diflucan now - wound cultures growing pseudomonas and dann (7) Agitation Current Visit: Yes Status: Acute Plan to address problem: - prn sedation / analgesia - tapered off seroquel for now (8) Atrial fibrillation Current Visit: Yes Status: Acute Qualifiers: Atrial fibrillation type: A Plan to address problem: - failed cardioversion earlier - cardiology evaluation ongoing - back in A-fib - continue amiodarone drip (change to p.o. once tolerating enterally) - on IV metoprolol scheduled re: HTN & tachycardia (9) JUANITA (acute kidney injury) Current Visit: Yes Status: Acute Plan to address problem: - on Dialysis now - continue HD/UF per nephrology recommendations - s/p tunnelled vas-cath (10) Pyrexia of unknown origin Current Visit: Yes Status: Acute Plan to address problem: - dopplers negative for DVT - continue to treat with Anti-infectives (11) Severe sepsis Current Visit: Yes Status: Acute Plan to address problem: - resume vasopressors for MAP < 60mmHg not responsive to volume - all central vascular access has been discontinued after fungemia reported - care plan formulated with ID input - BC's from 09/27/16 growing in 1of 2 but still no ID yet - coomplete micafungin per ID recs and stop date - wound care nurse also managing back wounds - clinically stable and hemodynamically improved - bo to RLQ incision removed and wound drained and packed - on contact precautions for MDRO PSAR (12) Emesis Current Visit: Yes Status: Acute Qualifiers: Vomiting type: V Vomiting Intractability: V Nausea presence: N Plan to address problem: - s/p surgical repair of gastric perforation - continue TPN for now - follow surgery recommendations re: feeding and new PEG tube (13) Dysphagia, oropharyngeal Current Visit: Yes Status: Acute Plan to address problem: - discussed with surgeon and she will be best served with continued treatment with anti-infectives as well as time for the GI tract and her wounds to heal before replacing the PEG tube - will keep feeding with NGT for 1 month before re-evaluation based on clinical picture during ex-lap; however held today due to high residuals - will use for p.o. meds (14) Discharge planning issues Current Visit: Yes Status: Acute Plan to address problem: - she remains critically ill on life sustaining interventions including MVS and at risk for further acute deterioration including - plan is to see if patient can transfer to LTAC in interim and be brought back for PEG placement .....30' CCT ....nursing home prognosis is guarded Subjective Date of service: 10/30/16 Principal diagnosis: Acute resp failure on MVS; S/P Acute CVA; Acute Encephalopathy; JUANITA Interval history: Seen and examined at bedside; 24 hour events reviewed; nursing and respiratory care staff consulted; no adverse overnight events reported to me; secretions copious today and did not tolerate T-piece trial; AMS is persistent; BP's and pulse also elevated; no new issues otherwise Objective Vital Signs - 12hr 10/30/16 10/30/16 10/30/16 01:15 01:31 02:01 Temperature Pulse Rate 124 H 112 H 110 H Pulse Rate [ From Monitor] Respiratory 29 H 25 H Rate Respiratory Rate [ Generalized] Blood Pressure 176/101 166/98 170/91 O2 Sat by Pulse 99 99 Oximetry O2 Sat by Pulse Oximetry [ Assessment] 10/30/16 10/30/16 10/30/16 02:31 03:01 03:06 Temperature Pulse Rate 117 H 127 H 118 H Pulse Rate [ From Monitor] Respiratory 27 H 33 H Rate Respiratory Rate [ Generalized] Blood Pressure 174/94 189/105 189/105 O2 Sat by Pulse 100 99 99 Oximetry O2 Sat by Pulse Oximetry [ Assessment] 10/30/16 10/30/16 10/30/16 03:15 03:17 03:31 Temperature Pulse Rate 117 H 123 H Pulse Rate [ From Monitor] Respiratory 29 H 27 H Rate Respiratory Rate [ Generalized] Blood Pressure 189/105 173/98 O2 Sat by Pulse 98 Oximetry O2 Sat by Pulse Oximetry [ Assessment] 10/30/16 10/30/16 10/30/16 03:45 04:00 04:01 Temperature 99.7 F H Pulse Rate 132 H Pulse Rate [ 119 H From Monitor] Respiratory 28 H 19 28 H Rate Respiratory Rate [ Generalized] Blood Pressure 173/98 O2 Sat by Pulse 99 Oximetry O2 Sat by Pulse Oximetry [ Assessment] 10/30/16 10/30/16 10/30/16 04:30 05:00 05:26 Temperature Pulse Rate 128 H 129 H 125 H Pulse Rate [ From Monitor] Respiratory 30 H 35 H Rate Respiratory Rate [ Generalized] Blood Pressure 193/104 204/120 195/110 O2 Sat by Pulse 99 99 Oximetry O2 Sat by Pulse Oximetry [ Assessment] 10/30/16 10/30/16 10/30/16 05:30 06:00 06:30 Temperature Pulse Rate 114 H 115 H 116 H Pulse Rate [ From Monitor] Respiratory 28 H 28 H 32 H Rate Respiratory Rate [ Generalized] Blood Pressure 202/113 203/123 196/108 O2 Sat by Pulse 100 100 99 Oximetry O2 Sat by Pulse Oximetry [ Assessment] 10/30/16 10/30/16 10/30/16 07:00 07:21 07:30 Temperature 99.3 F Pulse Rate 115 H 119 H Pulse Rate [ From Monitor] Respiratory 28 H 28 H Rate Respiratory Rate [ Generalized] Blood Pressure 178/105 186/103 O2 Sat by Pulse 100 99 Oximetry O2 Sat by Pulse Oximetry [ Assessment] 10/30/16 10/30/16 10/30/16 08:00 08:27 08:30 Temperature Pulse Rate 120 H 124 H 124 H Pulse Rate [ From Monitor] Respiratory 26 H 29 H Rate Respiratory Rate [ Generalized] Blood Pressure 184/105 184/105 172/93 O2 Sat by Pulse 98 100 99 Oximetry O2 Sat by Pulse 96 Oximetry [ Assessment] 10/30/16 10/30/16 10/30/16 08:44 08:45 09:00 Temperature Pulse Rate 122 H 121 H Pulse Rate [ From Monitor] Respiratory 36 H Rate Respiratory Rate [ Generalized] Blood Pressure 172/93 171/96 O2 Sat by Pulse 97 97 97 Oximetry O2 Sat by Pulse Oximetry [ Assessment] 10/30/16 10/30/16 10/30/16 09:30 10:00 10:01 Temperature Pulse Rate 124 H 113 H 124 H Pulse Rate [ From Monitor] Respiratory 35 H 41 H Rate Respiratory 21 Rate [ Generalized] Blood Pressure 192/99 188/99 O2 Sat by Pulse 99 93 Oximetry O2 Sat by Pulse Oximetry [ Assessment] 10/30/16 10/30/16 10/30/16 10:30 10:31 10:40 Temperature Pulse Rate 129 H Pulse Rate [ From Monitor] Respiratory 43 H Rate Respiratory Rate [ Generalized] Blood Pressure 195/99 201/101 O2 Sat by Pulse 95 94 Oximetry O2 Sat by Pulse Oximetry [ Assessment] 10/30/16 10/30/16 10/30/16 11:01 11:30 11:31 Temperature Pulse Rate 123 H 126 H 123 H Pulse Rate [ From Monitor] Respiratory 40 H 38 H 35 H Rate Respiratory Rate [ Generalized] Blood Pressure 177/91 190/94 186/92 O2 Sat by Pulse 91 93 97 Oximetry O2 Sat by Pulse Oximetry [ Assessment] 10/30/16 10/30/16 10/30/16 11:41 12:01 12:31 Temperature 99.5 F Pulse Rate 123 H 127 H Pulse Rate [ From Monitor] Respiratory 34 H 38 H Rate Respiratory Rate [ Generalized] Blood Pressure 187/96 205/79 O2 Sat by Pulse 100 100 Oximetry O2 Sat by Pulse Oximetry [ Assessment] 10/30/16 13:00 Temperature Pulse Rate 108 H Pulse Rate [ From Monitor] Respiratory 38 H Rate Respiratory Rate [ Generalized] Blood Pressure 191/93 O2 Sat by Pulse 100 Oximetry O2 Sat by Pulse Oximetry [ Assessment] Constitutional: no acute distress, other (eyes open; not tracking movements) Eyes: non-icteric, other (tracheostomy tube in midline of neck) ENT: oropharynx moist Neck: supple, no lymphadenopathy Effort: mildly labored Ascultation: Bilateral: rales Cardiovascular: regular rate and rhythm Gastrointestinal: hypoactive bowel sounds, soft, non-tender, non-distended, other (RLQ wound dressed) Integumentary: other (erythema to skin of back with some healing areas; no obvious TEN's features) Extremities: no cyanosis, no edema, pulses normal, no ischemia or petechiae Neurologic: pupils equal and round, other (sedated) Psychiatric: other (unable to assess) CBC and BMP: 10/30/16 08:19 10/30/16 08:19 ABG, PT/INR, D-dimer: ABG POC ABG pH 7.561 (7.35-7.45) H 10/16/16 20:48 POC ABG pCO2 24.4 (35-45) L 10/16/16 20:48 POC ABG pO2 77 (80-105) L 10/16/16 20:48 POC ABG HCO3 21.9 10/16/16 20:48 POC ABG Total CO2 23 10/16/16 20:48 POC ABG O2 Sat 97 10/16/16 20:48 PT/INR, D-dimer PT 19.0 Sec. (12.2-14.9) H 10/09/16 03:45 INR 1.51 (0.87-1.13) H 10/09/16 03:45 Abnormal lab findings: Abnormal Labs 09/03/16 09/03/16 09/03/16 12:12 15:07 16:20 WBC RBC Hgb Hct MCV MCH MCHC RDW Plt Count Lymph % (Auto) [place] % (Auto) Lymph # [place] # Baso # Seg Neutrophils % Seg Neuts % (Manual) Lymphocytes % (Manual) Monocytes % (Manual) Eosinophils % (Manual) Basophils % (Manual) Nucleated RBC % Seg Neutrophils # Seg Neutrophils # Man Lymphocytes # (Manual) Monocytes # (Manual) Eosinophils # (Manual) PT INR Fibrinogen dRVVT Confirm Interp Factor V Activity POC ABG pH 7.452 H POC ABG pCO2 POC ABG pO2 Sodium Potassium Chloride Carbon Dioxide BUN Creatinine Glucose POC Glucose 178 H Lactic Acid Calcium Phosphorus 2.20 L Magnesium 1.60 L Direct Bilirubin ALT Alkaline Phosphatase Troponin T C-Reactive Protein Total Protein Albumin Triglycerides Cholesterol LDL Cholesterol Direct HDL Cholesterol Urine WBC (Auto) Urine Creatinine Urine Total Protein Vancomycin Trough Rheumatoid Factor Complement C4 Miscellaneous Test Crossmatch 09/03/16 09/03/16 09/03/16 17:57 17:58 23:50 WBC RBC Hgb Hct MCV MCH MCHC RDW Plt Count Lymph % (Auto) [place] % (Auto) Lymph # [place] # Baso # Seg Neutrophils % Seg Neuts % (Manual) Lymphocytes % (Manual) Monocytes % (Manual) Eosinophils % (Manual) Basophils % (Manual) Nucleated RBC % Seg Neutrophils # Seg Neutrophils # Man Lymphocytes # (Manual) Monocytes # (Manual) Eosinophils # (Manual) PT INR Fibrinogen dRVVT Confirm Interp Factor V Activity POC ABG pH POC ABG pCO2 POC ABG pO2 Sodium Potassium Chloride Carbon Dioxide BUN Creatinine Glucose POC Glucose 162 H 145 H Lactic Acid Calcium Phosphorus 2.30 L Magnesium Direct Bilirubin ALT Alkaline Phosphatase Troponin T C-Reactive Protein Total Protein Albumin Triglycerides Cholesterol LDL Cholesterol Direct HDL Cholesterol Urine WBC (Auto) Urine Creatinine Urine Total Protein Vancomycin Trough Rheumatoid Factor Complement C4 Miscellaneous Test Crossmatch 09/04/16 09/04/16 09/04/16 03:31 03:31 05:42 WBC RBC Hgb 9.7 L D Hct MCV 72 L MCH 23 L MCHC RDW 17.5 H Plt Count Lymph % (Auto) 11.1 L [place] % (Auto) Lymph # [place] # Baso # Seg Neutrophils % 84.3 H Seg Neuts % (Manual) Lymphocytes % (Manual) Monocytes % (Manual) Eosinophils % (Manual) Basophils % (Manual) Nucleated RBC % Seg Neutrophils # 8.9 H Seg Neutrophils # Man Lymphocytes # (Manual) Monocytes # (Manual) Eosinophils # (Manual) PT INR Fibrinogen dRVVT Confirm Interp Factor V Activity POC ABG pH POC ABG pCO2 POC ABG pO2 Sodium 135 L Potassium 2.9 L* Chloride 97.2 L Carbon Dioxide 19 L BUN Creatinine 1.7 H Glucose 170 H POC Glucose 152 H Lactic Acid Calcium Phosphorus Magnesium Direct Bilirubin ALT Alkaline Phosphatase Troponin T C-Reactive Protein Total Protein Albumin Triglycerides 160 H Cholesterol LDL Cholesterol Direct HDL Cholesterol 31 L Urine WBC (Auto) Urine Creatinine Urine Total Protein Vancomycin Trough Rheumatoid Factor Complement C4 Miscellaneous Test Crossmatch 09/04/16 09/04/16 09/04/16 11:34 17:46 23:29 WBC RBC Hgb Hct MCV MCH MCHC RDW Plt Count Lymph % (Auto) [place] % (Auto) Lymph # [place] # Baso # Seg Neutrophils % Seg Neuts % (Manual) Lymphocytes % (Manual) Monocytes % (Manual) Eosinophils % (Manual) Basophils % (Manual) Nucleated RBC % Seg Neutrophils # Seg Neutrophils # Man Lymphocytes # (Manual) Monocytes # (Manual) Eosinophils # (Manual) PT INR Fibrinogen dRVVT Confirm Interp Factor V Activity POC ABG pH POC ABG pCO2 POC ABG pO2 Sodium Potassium Chloride Carbon Dioxide BUN Creatinine Glucose POC Glucose 165 H 210 H 139 H Lactic Acid Calcium Phosphorus Magnesium Direct Bilirubin ALT Alkaline Phosphatase Troponin T C-Reactive Protein Total Protein Albumin Triglycerides Cholesterol LDL Cholesterol Direct HDL Cholesterol Urine WBC (Auto) Urine Creatinine Urine Total Protein Vancomycin Trough Rheumatoid Factor Complement C4 Miscellaneous Test Crossmatch 09/05/16 09/05/16 09/05/16 04:05 04:05 05:38 WBC RBC Hgb Hct MCV 76 L D MCH 23 L MCHC RDW 17.8 H Plt Count Lymph % (Auto) [place] % (Auto) Lymph # [place] # Baso # Seg Neutrophils % Seg Neuts % (Manual) Lymphocytes % (Manual) Monocytes % (Manual) Eosinophils % (Manual) Basophils % (Manual) Nucleated RBC % Seg Neutrophils # Seg Neutrophils # Man Lymphocytes # (Manual) Monocytes # (Manual) Eosinophils # (Manual) PT INR Fibrinogen dRVVT Confirm Interp Factor V Activity POC ABG pH POC ABG pCO2 POC ABG pO2 Sodium 134 L Potassium Chloride Carbon Dioxide 18 L BUN Creatinine 1.8 H Glucose 192 H POC Glucose 175 H Lactic Acid Calcium Phosphorus Magnesium Direct Bilirubin ALT Alkaline Phosphatase Troponin T C-Reactive Protein Total Protein Albumin Triglycerides Cholesterol LDL Cholesterol Direct HDL Cholesterol Urine WBC (Auto) Urine Creatinine Urine Total Protein Vancomycin Trough Rheumatoid Factor Complement C4 Miscellaneous Test Crossmatch 09/05/16 09/05/16 09/05/16 11:38 17:48 23:22 WBC RBC Hgb Hct MCV MCH MCHC RDW Plt Count Lymph % (Auto) [place] % (Auto) Lymph # [place] # Baso # Seg Neutrophils % Seg Neuts % (Manual) Lymphocytes % (Manual) Monocytes % (Manual) Eosinophils % (Manual) Basophils % (Manual) Nucleated RBC % Seg Neutrophils # Seg Neutrophils # Man Lymphocytes # (Manual) Monocytes # (Manual) Eosinophils # (Manual) PT INR Fibrinogen dRVVT Confirm Interp Factor V Activity POC ABG pH POC ABG pCO2 POC ABG pO2 Sodium Potassium Chloride Carbon Dioxide BUN Creatinine Glucose POC Glucose 164 H 186 H 195 H Lactic Acid Calcium Phosphorus Magnesium Direct Bilirubin ALT Alkaline Phosphatase Troponin T C-Reactive Protein Total Protein Albumin Triglycerides Cholesterol LDL Cholesterol Direct HDL Cholesterol Urine WBC (Auto) Urine Creatinine Urine Total Protein Vancomycin Trough Rheumatoid Factor Complement C4 Miscellaneous Test Crossmatch 09/06/16 09/06/16 09/06/16 04:12 05:59 07:32 WBC RBC Hgb Hct MCV MCH MCHC RDW Plt Count Lymph % (Auto) [place] % (Auto) Lymph # [place] # Baso # Seg Neutrophils % Seg Neuts % (Manual) Lymphocytes % (Manual) Monocytes % (Manual) Eosinophils % (Manual) Basophils % (Manual) Nucleated RBC % Seg Neutrophils # Seg Neutrophils # Man Lymphocytes # (Manual) Monocytes # (Manual) Eosinophils # (Manual) PT INR Fibrinogen dRVVT Confirm Interp Factor V Activity POC ABG pH 7.514 H POC ABG pCO2 29.1 L POC ABG pO2 72 L Sodium 133 L Potassium 3.4 L Chloride 94.9 L Carbon Dioxide 19 L BUN 30 H Creatinine 2.1 H Glucose 139 H POC Glucose 146 H Lactic Acid Calcium Phosphorus Magnesium Direct Bilirubin ALT Alkaline Phosphatase Troponin T C-Reactive Protein Total Protein Albumin Triglycerides Cholesterol LDL Cholesterol Direct HDL Cholesterol Urine WBC (Auto) Urine Creatinine Urine Total Protein Vancomycin Trough Rheumatoid Factor Complement C4 Miscellaneous Test Crossmatch 09/06/16 09/06/1609/06/17 11:57 17:58 19:02 WBC RBC Hgb Hct MCV MCH MCHC RDW Plt Count Lymph % (Auto) [place] % (Auto) Lymph # [place] # Baso # Seg Neutrophils % Seg Neuts % (Manual) Lymphocytes % (Manual) Monocytes % (Manual) Eosinophils % (Manual) Basophils % (Manual) Nucleated RBC % Seg Neutrophils # Seg Neutrophils # Man Lymphocytes # (Manual) Monocytes # (Manual) Eosinophils # (Manual) PT INR Fibrinogen dRVVT Confirm Interp Factor V Activity POC ABG pH 7.465 H POC ABG pCO2 32.0 L POC ABG pO2 Sodium Potassium Chloride Carbon Dioxide BUN Creatinine Glucose POC Glucose 165 H 160 H Lactic Acid Calcium Phosphorus Magnesium Direct Bilirubin ALT Alkaline Phosphatase Troponin T C-Reactive Protein Total Protein Albumin Triglycerides Cholesterol LDL Cholesterol Direct HDL Cholesterol Urine WBC (Auto) Urine Creatinine Urine Total Protein Vancomycin Trough Rheumatoid Factor Complement C4 Miscellaneous Test Crossmatch 09/06/16 09/07/16 09/07/16 23:45 02:47 02:47 WBC RBC Hgb Hct MCV MCH MCHC RDW Plt Count Lymph % (Auto) [place] % (Auto) Lymph # [place] # Baso # Seg Neutrophils % Seg Neuts % (Manual) Lymphocytes % (Manual) Monocytes % (Manual) Eosinophils % (Manual) Basophils % (Manual) Nucleated RBC % Seg Neutrophils # Seg Neutrophils # Man Lymphocytes # (Manual) Monocytes # (Manual) Eosinophils # (Manual) PT INR Fibrinogen dRVVT Confirm Interp Factor V Activity POC ABG pH POC ABG pCO2 POC ABG pO2 Sodium Potassium Chloride Carbon Dioxide BUN Creatinine Glucose POC Glucose 204 H Lactic Acid Calcium Phosphorus Magnesium Direct Bilirubin ALT Alkaline Phosphatase Troponin T C-Reactive Protein Total Protein Albumin Triglycerides Cholesterol LDL Cholesterol Direct HDL Cholesterol Urine WBC (Auto) 68.0 H Urine Creatinine 106.1 H Urine Total Protein Vancomycin Trough Rheumatoid Factor Complement C4 Miscellaneous Test Crossmatch 09/07/16 09/07/16 09/07/16 04:50 06:19 06:39 WBC RBC Hgb Hct MCV MCH MCHC RDW Plt Count Lymph % (Auto) [place] % (Auto) Lymph # [place] # Baso # Seg Neutrophils % Seg Neuts % (Manual) Lymphocytes % (Manual) Monocytes % (Manual) Eosinophils % (Manual) Basophils % (Manual) Nucleated RBC % Seg Neutrophils # Seg Neutrophils # Man Lymphocytes # (Manual) Monocytes # (Manual) Eosinophils # (Manual) PT INR Fibrinogen dRVVT Confirm Interp Factor V Activity POC ABG pH 7.457 H POC ABG pCO2 32.1 L POC ABG pO2 76 L Sodium 132 L Potassium Chloride 94.7 L Carbon Dioxide BUN 53 H Creatinine 2.9 H Glucose 151 H POC Glucose 149 H Lactic Acid Calcium Phosphorus Magnesium Direct Bilirubin ALT Alkaline Phosphatase Troponin T C-Reactive Protein Total Protein Albumin Triglycerides Cholesterol LDL Cholesterol Direct HDL Cholesterol Urine WBC (Auto) Urine Creatinine Urine Total Protein Vancomycin Trough Rheumatoid Factor Complement C4 Miscellaneous Test Crossmatch 09/07/16 09/07/16 09/07/16 09:20 11:43 11:43 WBC 19.4 H RBC Hgb 8.3 L Hct 26.4 L D MCV 72 L D MCH 22 L MCHC RDW 17.9 H Plt Count Lymph % (Auto) 8.5 L [place] % (Auto) Lymph # [place] # 1.0 H Baso # Seg Neutrophils % 85.8 H Seg Neuts % (Manual) Lymphocytes % (Manual) Monocytes % (Manual) Eosinophils % (Manual) Basophils % (Manual) Nucleated RBC % Seg Neutrophils # 16.6 H Seg Neutrophils # Man Lymphocytes # (Manual) Monocytes # (Manual) Eosinophils # (Manual) PT INR Fibrinogen dRVVT Confirm Interp Factor V Activity POC ABG pH POC ABG pCO2 POC ABG pO2 Sodium 134 L Potassium Chloride 97.2 L Carbon Dioxide 20 L BUN 58 H Creatinine 2.9 H Glucose 147 H POC Glucose Lactic Acid Calcium Phosphorus 2.40 L Magnesium 2.40 H Direct Bilirubin ALT Alkaline Phosphatase Troponin T C-Reactive Protein Total Protein 5.8 L Albumin 2.2 L Triglycerides Cholesterol LDL Cholesterol Direct HDL Cholesterol Urine WBC (Auto) Urine Creatinine Urine Total Protein Vancomycin Trough Rheumatoid Factor Complement C4 58 H Miscellaneous Test Crossmatch 09/07/16 09/07/16 09/07/16 11:50 16:00 17:31 WBC RBC Hgb Hct MCV MCH MCHC RDW Plt Count Lymph % (Auto) [place] % (Auto) Lymph # [place] # Baso # Seg Neutrophils % Seg Neuts % (Manual) Lymphocytes % (Manual) Monocytes % (Manual) Eosinophils % (Manual) Basophils % (Manual) Nucleated RBC % Seg Neutrophils # Seg Neutrophils # Man Lymphocytes # (Manual) Monocytes # (Manual) Eosinophils # (Manual) PT INR Fibrinogen dRVVT Confirm Interp Factor V Activity POC ABG pH POC ABG pCO2 POC ABG pO2 158 H Sodium Potassium Chloride Carbon Dioxide BUN Creatinine Glucose POC Glucose 175 H Lactic Acid Calcium Phosphorus Magnesium Direct Bilirubin ALT Alkaline Phosphatase Troponin T C-Reactive Protein Total Protein Albumin Triglycerides Cholesterol LDL Cholesterol Direct HDL Cholesterol Urine WBC (Auto) Urine Creatinine 66.3 H Urine Total Protein Vancomycin Trough Rheumatoid Factor Complement C4 Miscellaneous Test Crossmatch 09/07/16 09/08/16 09/08/16 23:50 05:46 06:18 WBC 17.8 H RBC 3.58 L Hgb 8.1 L Hct 25.5 L MCV 71 L MCH 23 L MCHC RDW 18.4 H Plt Count Lymph % (Auto) [place] % (Auto) Lymph # [place] # Baso # Seg Neutrophils % Seg Neuts % (Manual) 92.0 H Lymphocytes % (Manual) 6.0 L Monocytes % (Manual) Eosinophils % (Manual) Basophils % (Manual) Nucleated RBC % Seg Neutrophils # Seg Neutrophils # Man 16.4 H Lymphocytes # (Manual) 1.1 L Monocytes # (Manual) Eosinophils # (Manual) PT INR Fibrinogen dRVVT Confirm Interp Factor V Activity POC ABG pH POC ABG pCO2 34.3 L POC ABG pO2 71 L Sodium Potassium Chloride Carbon Dioxide BUN Creatinine Glucose POC Glucose 216 H Lactic Acid Calcium Phosphorus Magnesium Direct Bilirubin ALT Alkaline Phosphatase Troponin T C-Reactive Protein Total Protein Albumin Triglycerides Cholesterol LDL Cholesterol Direct HDL Cholesterol Urine WBC (Auto) Urine Creatinine Urine Total Protein Vancomycin Trough Rheumatoid Factor Complement C4 Miscellaneous Test Crossmatch 09/08/16 09/08/16 09/08/16 06:18 06:51 10:55 WBC RBC Hgb Hct MCV MCH MCHC RDW Plt Count Lymph % (Auto) [place] % (Auto) Lymph # [place] # Baso # Seg Neutrophils % Seg Neuts % (Manual) Lymphocytes % (Manual) Monocytes % (Manual) Eosinophils % (Manual) Basophils % (Manual) Nucleated RBC % Seg Neutrophils # Seg Neutrophils # Man Lymphocytes # (Manual) Monocytes # (Manual) Eosinophils # (Manual) PT INR Fibrinogen dRVVT Confirm Interp Factor V Activity POC ABG pH POC ABG pCO2 POC ABG pO2 Sodium 133 L Potassium Chloride 96.9 L Carbon Dioxide 20 L BUN 63 H Creatinine 2.7 H Glucose 195 H POC Glucose 204 H 169 H Lactic Acid Calcium Phosphorus Magnesium Direct Bilirubin ALT Alkaline Phosphatase Troponin T C-Reactive Protein Total Protein Albumin Triglycerides Cholesterol LDL Cholesterol Direct HDL Cholesterol Urine WBC (Auto) Urine Creatinine Urine Total Protein Vancomycin Trough Rheumatoid Factor Complement C4 Miscellaneous Test Crossmatch 09/08/16 09/08/16 09/08/16 11:48 11:48 11:48 WBC RBC Hgb Hct MCV MCH MCHC RDW Plt Count Lymph % (Auto) [place] % (Auto) Lymph # [place] # Baso # Seg Neutrophils % Seg Neuts % (Manual) Lymphocytes % (Manual) Monocytes % (Manual) Eosinophils % (Manual) Basophils % (Manual) Nucleated RBC % Seg Neutrophils # Seg Neutrophils # Man Lymphocytes # (Manual) Monocytes # (Manual) Eosinophils # (Manual) PT INR Fibrinogen 750 H dRVVT Confirm Interp Factor V Activity POC ABG pH POC ABG pCO2 POC ABG pO2 Sodium Potassium Chloride Carbon Dioxide BUN Creatinine Glucose POC Glucose Lactic Acid Calcium Phosphorus Magnesium Direct Bilirubin ALT Alkaline Phosphatase Troponin T C-Reactive Protein 15.70 H Total Protein Albumin Triglycerides Cholesterol LDL Cholesterol Direct HDL Cholesterol Urine WBC (Auto) Urine Creatinine Urine Total Protein Vancomycin Trough Rheumatoid Factor 24 H Complement C4 Miscellaneous Test Crossmatch 09/08/16 09/08/16 09/09/16 15:35 18:25 00:24 WBC RBC Hgb Hct MCV MCH MCHC RDW Plt Count Lymph % (Auto) [place] % (Auto) Lymph # [place] # Baso # Seg Neutrophils % Seg Neuts % (Manual) Lymphocytes % (Manual) Monocytes % (Manual) Eosinophils % (Manual) Basophils % (Manual) Nucleated RBC % Seg Neutrophils # Seg Neutrophils # Man Lymphocytes # (Manual) Monocytes # (Manual) Eosinophils # (Manual) PT INR Fibrinogen dRVVT Confirm Interp Factor V Activity 182 H POC ABG pH POC ABG pCO2 POC ABG pO2 Sodium Potassium Chloride Carbon Dioxide BUN Creatinine Glucose POC Glucose 184 H 216 H Lactic Acid Calcium Phosphorus Magnesium Direct Bilirubin ALT Alkaline Phosphatase Troponin T C-Reactive Protein Total Protein Albumin Triglycerides Cholesterol LDL Cholesterol Direct HDL Cholesterol Urine WBC (Auto) Urine Creatinine Urine Total Protein Vancomycin Trough Rheumatoid Factor Complement C4 Miscellaneous Test Crossmatch 09/09/16 09/09/16 09/09/16 03:00 03:00 04:04 WBC 27.9 H RBC Hgb 8.7 L Hct 28.1 L MCV 72 L MCH 22 L MCHC RDW 18.4 H Plt Count 485 H Lymph % (Auto) [place] % (Auto) Lymph # [place] # Baso # Seg Neutrophils % Seg Neuts % (Manual) 77.0 H Lymphocytes % (Manual) 9.0 L Monocytes % (Manual) Eosinophils % (Manual) Basophils % (Manual) Nucleated RBC % Seg Neutrophils # Seg Neutrophils # Man 21.5 H Lymphocytes # (Manual) Monocytes # (Manual) 2.0 H Eosinophils # (Manual) PT INR Fibrinogen dRVVT Confirm Interp Factor V Activity POC ABG pH POC ABG pCO2 POC ABG pO2 121 H Sodium 135 L Potassium Chloride 96.3 L Carbon Dioxide 21 L BUN 83 H Creatinine 3.0 H Glucose 135 H POC Glucose Lactic Acid Calcium Phosphorus Magnesium Direct Bilirubin ALT Alkaline Phosphatase Troponin T C-Reactive Protein Total Protein Albumin Triglycerides Cholesterol LDL Cholesterol Direct HDL Cholesterol Urine WBC (Auto) Urine Creatinine Urine Total Protein Vancomycin Trough Rheumatoid Factor Complement C4 Miscellaneous Test Crossmatch 09/09/16 09/09/16 09/09/16 05:41 11:55 14:13 WBC RBC Hgb Hct MCV MCH MCHC RDW Plt Count Lymph % (Auto) [place] % (Auto) Lymph # [place] # Baso # Seg Neutrophils % Seg Neuts % (Manual) Lymphocytes % (Manual) Monocytes % (Manual) Eosinophils % (Manual) Basophils % (Manual) Nucleated RBC % Seg Neutrophils # Seg Neutrophils # Man Lymphocytes # (Manual) Monocytes # (Manual) Eosinophils # (Manual) PT INR Fibrinogen dRVVT Confirm Interp Factor V Activity POC ABG pH POC ABG pCO2 POC ABG pO2 Sodium Potassium Chloride Carbon Dioxide BUN Creatinine Glucose POC Glucose 155 H 186 H Lactic Acid Calcium Phosphorus Magnesium Direct Bilirubin ALT Alkaline Phosphatase Troponin T C-Reactive Protein Total Protein Albumin Triglycerides Cholesterol LDL Cholesterol Direct HDL Cholesterol Urine WBC (Auto) 25.0 H Urine Creatinine Urine Total Protein Vancomycin Trough Rheumatoid Factor Complement C4 Miscellaneous Test Crossmatch 09/09/16 09/09/16 09/10/16 17:33 23:13 05:09 WBC RBC Hgb Hct MCV MCH MCHC RDW Plt Count Lymph % (Auto) [place] % (Auto) Lymph # [place] # Baso # Seg Neutrophils % Seg Neuts % (Manual) Lymphocytes % (Manual) Monocytes % (Manual) Eosinophils % (Manual) Basophils % (Manual) Nucleated RBC % Seg Neutrophils # Seg Neutrophils # Man Lymphocytes # (Manual) Monocytes # (Manual) Eosinophils # (Manual) PT INR Fibrinogen dRVVT Confirm Interp Factor V Activity POC ABG pH POC ABG pCO2 POC ABG pO2 74 L Sodium Potassium Chloride Carbon Dioxide BUN Creatinine Glucose POC Glucose 211 H 215 H Lactic Acid Calcium Phosphorus Magnesium Direct Bilirubin ALT Alkaline Phosphatase Troponin T C-Reactive Protein Total Protein Albumin Triglycerides Cholesterol LDL Cholesterol Direct HDL Cholesterol Urine WBC (Auto) Urine Creatinine Urine Total Protein Vancomycin Trough Rheumatoid Factor Complement C4 Miscellaneous Test Crossmatch 09/10/16 09/10/16 09/10/16 05:17 05:17 11:31 WBC 15.8 H RBC 3.25 L Hgb 7.3 L Hct 22.9 L MCV 71 L MCH 23 L MCHC RDW 18.4 H Plt Count Lymph % (Auto) [place] % (Auto) Lymph # [place] # Baso # Seg Neutrophils % Seg Neuts % (Manual) 91.0 H Lymphocytes % (Manual) 4.0 L Monocytes % (Manual) Eosinophils % (Manual) Basophils % (Manual) Nucleated RBC % Seg Neutrophils # Seg Neutrophils # Man 14.4 H Lymphocytes # (Manual) 0.6 L Monocytes # (Manual) Eosinophils # (Manual) PT INR Fibrinogen dRVVT Confirm Interp Factor V Activity POC ABG pH POC ABG pCO2 POC ABG pO2 Sodium Potassium Chloride Carbon Dioxide 21 L BUN 93 H Creatinine 2.9 H Glucose 146 H POC Glucose 188 H Lactic Acid Calcium 8.1 L Phosphorus Magnesium Direct Bilirubin ALT Alkaline Phosphatase Troponin T C-Reactive Protein Total Protein Albumin Triglycerides Cholesterol LDL Cholesterol Direct HDL Cholesterol Urine WBC (Auto) Urine Creatinine Urine Total Protein Vancomycin Trough Rheumatoid Factor Complement C4 Miscellaneous Test Crossmatch 09/10/16 09/10/16 09/10/16 13:17 17:20 23:32 WBC RBC Hgb Hct MCV MCH MCHC RDW Plt Count Lymph % (Auto) [place] % (Auto) Lymph # [place] # Baso # Seg Neutrophils % Seg Neuts % (Manual) Lymphocytes % (Manual) Monocytes % (Manual) Eosinophils % (Manual) Basophils % (Manual) Nucleated RBC % Seg Neutrophils # Seg Neutrophils # Man Lymphocytes # (Manual) Monocytes # (Manual) Eosinophils # (Manual) PT INR Fibrinogen dRVVT Confirm Interp Factor V Activity POC ABG pH POC ABG pCO2 POC ABG pO2 Sodium Potassium Chloride Carbon Dioxide BUN Creatinine Glucose POC Glucose 199 H 186 H Lactic Acid Calcium Phosphorus Magnesium Direct Bilirubin ALT Alkaline Phosphatase Troponin T C-Reactive Protein Total Protein Albumin Triglycerides Cholesterol LDL Cholesterol Direct HDL Cholesterol Urine WBC (Auto) Urine Creatinine Urine Total Protein Vancomycin Trough Rheumatoid Factor Complement C4 Miscellaneous Test Crossmatch See Detail 09/11/16 09/11/16 09/11/16 05:10 05:10 05:17 WBC 28.4 H RBC Hgb 9.2 L Hct 29.3 L D MCV 73 L MCH 23 L MCHC RDW 18.9 H Plt Count 452 H Lymph % (Auto) [place] % (Auto) Lymph # [place] # Baso # Seg Neutrophils % Seg Neuts % (Manual) 89.5 H Lymphocytes % (Manual) 2.0 L Monocytes % (Manual) Eosinophils % (Manual) Basophils % (Manual) Nucleated RBC % Seg Neutrophils # Seg Neutrophils # Man 25.4 H Lymphocytes # (Manual) 0.6 L Monocytes # (Manual) 1.3 H Eosinophils # (Manual) PT INR Fibrinogen dRVVT Confirm Interp Factor V Activity POC ABG pH POC ABG pCO2 POC ABG pO2 Sodium 136 L Potassium Chloride Carbon Dioxide 18 L BUN 107 H Creatinine 2.6 H Glucose 187 H POC Glucose 230 H Lactic Acid Calcium 8.3 L Phosphorus Magnesium Direct Bilirubin ALT Alkaline Phosphatase Troponin T C-Reactive Protein Total Protein Albumin Triglycerides Cholesterol LDL Cholesterol Direct HDL Cholesterol Urine WBC (Auto) Urine Creatinine Urine Total Protein Vancomycin Trough Rheumatoid Factor Complement C4 Miscellaneous Test Crossmatch 09/11/16 09/11/16 09/11/16 05:55 12:02 17:32 WBC RBC Hgb Hct MCV MCH MCHC RDW Plt Count Lymph % (Auto) [place] % (Auto) Lymph # [place] # Baso # Seg Neutrophils % Seg Neuts % (Manual) Lymphocytes % (Manual) Monocytes % (Manual) Eosinophils % (Manual) Basophils % (Manual) Nucleated RBC % Seg Neutrophils # Seg Neutrophils # Man Lymphocytes # (Manual) Monocytes # (Manual) Eosinophils # (Manual) PT INR Fibrinogen dRVVT Confirm Interp Factor V Activity POC ABG pH POC ABG pCO2 33.8 L POC ABG pO2 Sodium Potassium Chloride Carbon Dioxide BUN Creatinine Glucose POC Glucose 191 H 239 H Lactic Acid Calcium Phosphorus Magnesium Direct Bilirubin ALT Alkaline Phosphatase Troponin T C-Reactive Protein Total Protein Albumin Triglycerides Cholesterol LDL Cholesterol Direct HDL Cholesterol Urine WBC (Auto) Urine Creatinine Urine Total Protein Vancomycin Trough Rheumatoid Factor Complement C4 Miscellaneous Test Crossmatch 09/11/16 09/12/16 09/12/16 23:52 05:09 05:32 WBC RBC Hgb Hct MCV MCH MCHC RDW Plt Count Lymph % (Auto) [place] % (Auto) Lymph # [place] # Baso # Seg Neutrophils % Seg Neuts % (Manual) Lymphocytes % (Manual) Monocytes % (Manual) Eosinophils % (Manual) Basophils % (Manual) Nucleated RBC % Seg Neutrophils # Seg Neutrophils # Man Lymphocytes # (Manual) Monocytes # (Manual) Eosinophils # (Manual) PT INR Fibrinogen dRVVT Confirm Interp Factor V Activity POC ABG pH POC ABG pCO2 34.6 L POC ABG pO2 Sodium Potassium Chloride Carbon Dioxide BUN Creatinine Glucose POC Glucose 265 H 184 H Lactic Acid Calcium Phosphorus Magnesium Direct Bilirubin ALT Alkaline Phosphatase Troponin T C-Reactive Protein Total Protein Albumin Triglycerides Cholesterol LDL Cholesterol Direct HDL Cholesterol Urine WBC (Auto) Urine Creatinine Urine Total Protein Vancomycin Trough Rheumatoid Factor Complement C4 Miscellaneous Test Crossmatch 09/12/16 09/12/16 09/12/16 06:45 06:45 07:22 WBC 31.7 H RBC 3.54 L Hgb 8.3 L Hct 25.9 L MCV 73 L MCH 23 L MCHC RDW 18.9 H Plt Count Lymph % (Auto) [place] % (Auto) Lymph # [place] # Baso # Seg Neutrophils % Seg Neuts % (Manual) 88.5 H Lymphocytes % (Manual) 4.5 L Monocytes % (Manual) Eosinophils % (Manual) Basophils % (Manual) Nucleated RBC % Seg Neutrophils # Seg Neutrophils # Man 28.1 H Lymphocytes # (Manual) Monocytes # (Manual) 1.0 H Eosinophils # (Manual) PT INR Fibrinogen dRVVT Confirm Interp Factor V Activity POC ABG pH POC ABG pCO2 POC ABG pO2 Sodium Potassium Chloride Carbon Dioxide 20 L BUN 115 H Creatinine 2.7 H Glucose 165 H POC Glucose Lactic Acid Calcium 8.0 L Phosphorus Magnesium Direct Bilirubin ALT Alkaline Phosphatase Troponin T C-Reactive Protein Total Protein Albumin Triglycerides 217 H Cholesterol LDL Cholesterol Direct HDL Cholesterol Urine WBC (Auto) Urine Creatinine Urine Total Protein Vancomycin Trough Rheumatoid Factor Complement C4 Miscellaneous Test Crossmatch 09/12/16 09/12/16 09/12/16 07:22 09:59 12:21 WBC RBC Hgb Hct MCV MCH MCHC RDW Plt Count Lymph % (Auto) [place] % (Auto) Lymph # [place] # Baso # Seg Neutrophils % Seg Neuts % (Manual) Lymphocytes % (Manual) Monocytes % (Manual) Eosinophils % (Manual) Basophils % (Manual) Nucleated RBC % Seg Neutrophils # Seg Neutrophils # Man Lymphocytes # (Manual) Monocytes # (Manual) Eosinophils # (Manual) PT INR Fibrinogen dRVVT Confirm Interp Positive H Factor V Activity POC ABG pH POC ABG pCO2 POC ABG pO2 Sodium Potassium Chloride Carbon Dioxide BUN Creatinine Glucose POC Glucose 224 H Lactic Acid Calcium Phosphorus Magnesium Direct Bilirubin ALT Alkaline Phosphatase Troponin T C-Reactive Protein 1.70 H Total Protein Albumin Triglycerides Cholesterol LDL Cholesterol Direct HDL Cholesterol Urine WBC (Auto) Urine Creatinine Urine Total Protein Vancomycin Trough Rheumatoid Factor Complement C4 Miscellaneous Test Crossmatch 09/12/16 09/12/16 09/13/16 16:51 23:28 04:00 WBC 45.0 H* RBC Hgb 9.4 L Hct MCV 75 L MCH 23 L MCHC RDW 19.0 H Plt Count 470 H Lymph % (Auto) [place] % (Auto) Lymph # [place] # Baso # Seg Neutrophils % Seg Neuts % (Manual) 89.0 H Lymphocytes % (Manual) 5.0 L Monocytes % (Manual) Eosinophils % (Manual) Basophils % (Manual) Nucleated RBC % Seg Neutrophils # Seg Neutrophils # Man 40.1 H Lymphocytes # (Manual) Monocytes # (Manual) Eosinophils # (Manual) PT INR Fibrinogen dRVVT Confirm Interp Factor V Activity POC ABG pH POC ABG pCO2 POC ABG pO2 Sodium Potassium Chloride Carbon Dioxide BUN Creatinine Glucose POC Glucose 169 H 150 H Lactic Acid Calcium Phosphorus Magnesium Direct Bilirubin ALT Alkaline Phosphatase Troponin T C-Reactive Protein Total Protein Albumin Triglycerides Cholesterol LDL Cholesterol Direct HDL Cholesterol Urine WBC (Auto) Urine Creatinine Urine Total Protein Vancomycin Trough Rheumatoid Factor Complement C4 Miscellaneous Test Crossmatch 09/13/16 09/13/16 09/13/16 04:00 11:26 17:31 WBC RBC Hgb Hct MCV MCH MCHC RDW Plt Count Lymph % (Auto) [place] % (Auto) Lymph # [place] # Baso # Seg Neutrophils % Seg Neuts % (Manual) Lymphocytes % (Manual) Monocytes % (Manual) Eosinophils % (Manual) Basophils % (Manual) Nucleated RBC % Seg Neutrophils # Seg Neutrophils # Man Lymphocytes # (Manual) Monocytes # (Manual) Eosinophils # (Manual) PT INR Fibrinogen dRVVT Confirm Interp Factor V Activity POC ABG pH POC ABG pCO2 POC ABG pO2 Sodium Potassium Chloride Carbon Dioxide 20 L BUN 116 H Creatinine 3.0 H Glucose 172 H POC Glucose 140 H 183 H Lactic Acid Calcium Phosphorus Magnesium Direct Bilirubin ALT Alkaline Phosphatase Troponin T C-Reactive Protein Total Protein 6.2 L Albumin 2.9 L Triglycerides Cholesterol LDL Cholesterol Direct HDL Cholesterol Urine WBC (Auto) Urine Creatinine Urine Total Protein Vancomycin Trough Rheumatoid Factor Complement C4 Miscellaneous Test Crossmatch 09/13/16 09/14/16 09/14/16 23:23 04:06 04:07 WBC 29.4 H RBC Hgb 8.9 L Hct 27.3 L MCV 75 L MCH 24 L MCHC RDW 19.1 H Plt Count Lymph % (Auto) [place] % (Auto) Lymph # [place] # Baso # Seg Neutrophils % Seg Neuts % (Manual) 84.0 H Lymphocytes % (Manual) 6.0 L Monocytes % (Manual) 9.0 H Eosinophils % (Manual) Basophils % (Manual) Nucleated RBC % Seg Neutrophils # Seg Neutrophils # Man 24.7 H Lymphocytes # (Manual) Monocytes # (Manual) 2.6 H Eosinophils # (Manual) PT INR Fibrinogen dRVVT Confirm Interp Factor V Activity POC ABG pH 7.342 L POC ABG pCO2 POC ABG pO2 116 H Sodium Potassium Chloride Carbon Dioxide BUN Creatinine Glucose POC Glucose 154 H Lactic Acid Calcium Phosphorus Magnesium Direct Bilirubin ALT Alkaline Phosphatase Troponin T C-Reactive Protein Total Protein Albumin Triglycerides Cholesterol LDL Cholesterol Direct HDL Cholesterol Urine WBC (Auto) Urine Creatinine Urine Total Protein Vancomycin Trough Rheumatoid Factor Complement C4 Miscellaneous Test Crossmatch 09/14/16 09/14/16 09/14/16 04:07 05:29 12:19 WBC RBC Hgb Hct MCV MCH MCHC RDW Plt Count Lymph % (Auto) [place] % (Auto) Lymph # [place] # Baso # Seg Neutrophils % Seg Neuts % (Manual) Lymphocytes % (Manual) Monocytes % (Manual) Eosinophils % (Manual) Basophils % (Manual) Nucleated RBC % Seg Neutrophils # Seg Neutrophils # Man Lymphocytes # (Manual) Monocytes # (Manual) Eosinophils # (Manual) PT INR Fibrinogen dRVVT Confirm Interp Factor V Activity POC ABG pH POC ABG pCO2 POC ABG pO2 Sodium 136 L Potassium Chloride Carbon Dioxide 18 L BUN 121 H Creatinine 2.8 H Glucose 214 H POC Glucose 239 H 181 H Lactic Acid Calcium Phosphorus Magnesium Direct Bilirubin ALT Alkaline Phosphatase Troponin T C-Reactive Protein Total Protein Albumin Triglycerides Cholesterol LDL Cholesterol Direct HDL Cholesterol Urine WBC (Auto) Urine Creatinine Urine Total Protein Vancomycin Trough Rheumatoid Factor Complement C4 Miscellaneous Test Crossmatch 09/14/16 09/14/16 09/15/16 18:12 23:37 05:00 WBC 26.1 H RBC 3.05 L Hgb 7.2 L Hct 22.9 L MCV 75 L MCH 24 L MCHC RDW 19.0 H Plt Count Lymph % (Auto) [place] % (Auto) Lymph # [place] # Baso # Seg Neutrophils % Seg Neuts % (Manual) Lymphocytes % (Manual) Monocytes % (Manual) Eosinophils % (Manual) Basophils % (Manual) Nucleated RBC % Seg Neutrophils # Seg Neutrophils # Man Lymphocytes # (Manual) Monocytes # (Manual) Eosinophils # (Manual) PT INR Fibrinogen dRVVT Confirm Interp Factor V Activity POC ABG pH POC ABG pCO2 POC ABG pO2 Sodium Potassium Chloride Carbon Dioxide BUN Creatinine Glucose POC Glucose 266 H 154 H Lactic Acid Calcium Phosphorus Magnesium Direct Bilirubin ALT Alkaline Phosphatase Troponin T C-Reactive Protein Total Protein Albumin Triglycerides Cholesterol LDL Cholesterol Direct HDL Cholesterol Urine WBC (Auto) Urine Creatinine Urine Total Protein Vancomycin Trough Rheumatoid Factor Complement C4 Miscellaneous Test Crossmatch 09/15/16 09/15/16 09/15/16 05:00 05:17 12:45 WBC RBC Hgb Hct MCV MCH MCHC RDW Plt Count Lymph % (Auto) [place] % (Auto) Lymph # [place] # Baso # Seg Neutrophils % Seg Neuts % (Manual) Lymphocytes % (Manual) Monocytes % (Manual) Eosinophils % (Manual) Basophils % (Manual) Nucleated RBC % Seg Neutrophils # Seg Neutrophils # Man Lymphocytes # (Manual) Monocytes # (Manual) Eosinophils # (Manual) PT INR Fibrinogen dRVVT Confirm Interp Factor V Activity POC ABG pH POC ABG pCO2 POC ABG pO2 Sodium Potassium 5.2 H Chloride Carbon Dioxide 18 L BUN 139 H Creatinine 3.7 H Glucose 227 H POC Glucose 226 H 244 H Lactic Acid Calcium 8.3 L Phosphorus Magnesium Direct Bilirubin ALT Alkaline Phosphatase Troponin T C-Reactive Protein Total Protein Albumin Triglycerides Cholesterol LDL Cholesterol Direct HDL Cholesterol Urine WBC (Auto) Urine Creatinine Urine Total Protein Vancomycin Trough Rheumatoid Factor Complement C4 Miscellaneous Test Crossmatch 09/15/16 09/15/16 09/15/16 14:32 17:33 23:35 WBC RBC Hgb Hct MCV MCH MCHC RDW Plt Count Lymph % (Auto) [place] % (Auto) Lymph # [place] # Baso # Seg Neutrophils % Seg Neuts % (Manual) Lymphocytes % (Manual) Monocytes % (Manual) Eosinophils % (Manual) Basophils % (Manual) Nucleated RBC % Seg Neutrophils # Seg Neutrophils # Man Lymphocytes # (Manual) Monocytes # (Manual) Eosinophils # (Manual) PT INR Fibrinogen dRVVT Confirm Interp Factor V Activity POC ABG pH POC ABG pCO2 27.7 L POC ABG pO2 120 H Sodium Potassium Chloride Carbon Dioxide BUN Creatinine Glucose POC Glucose 232 H 167 H Lactic Acid Calcium Phosphorus Magnesium Direct Bilirubin ALT Alkaline Phosphatase Troponin T C-Reactive Protein Total Protein Albumin Triglycerides Cholesterol LDL Cholesterol Direct HDL Cholesterol Urine WBC (Auto) Urine Creatinine Urine Total Protein Vancomycin Trough Rheumatoid Factor Complement C4 Miscellaneous Test Crossmatch 09/16/16 09/16/16 09/16/16 03:58 10:27 10:27 WBC 19.0 H RBC 2.77 L Hgb 6.5 L Hct 20.9 L MCV 76 L MCH 23 L MCHC RDW 19.3 H Plt Count Lymph % (Auto) 11.0 L [place] % (Auto) Lymph # [place] # 1.1 H Baso # Seg Neutrophils % 82.5 H Seg Neuts % (Manual) Lymphocytes % (Manual) Monocytes % (Manual) Eosinophils % (Manual) Basophils % (Manual) Nucleated RBC % Seg Neutrophils # 15.7 H Seg Neutrophils # Man Lymphocytes # (Manual) Monocytes # (Manual) Eosinophils # (Manual) PT INR Fibrinogen dRVVT Confirm Interp Factor V Activity POC ABG pH POC ABG pCO2 POC ABG pO2 Sodium Potassium Chloride 109.3 H Carbon Dioxide 18 L BUN 139 H Creatinine 4.1 H Glucose 144 H POC Glucose 146 H Lactic Acid Calcium 8.1 L Phosphorus Magnesium Direct Bilirubin ALT Alkaline Phosphatase Troponin T C-Reactive Protein Total Protein Albumin Triglycerides Cholesterol LDL Cholesterol Direct HDL Cholesterol Urine WBC (Auto) Urine Creatinine Urine Total Protein Vancomycin Trough Rheumatoid Factor Complement C4 Miscellaneous Test Crossmatch 09/16/16 09/16/16 09/16/16 12:04 12:10 13:55 WBC RBC Hgb Hct MCV MCH MCHC RDW Plt Count Lymph % (Auto) [place] % (Auto) Lymph # [place] # Baso # Seg Neutrophils % Seg Neuts % (Manual) Lymphocytes % (Manual) Monocytes % (Manual) Eosinophils % (Manual) Basophils % (Manual) Nucleated RBC % Seg Neutrophils # Seg Neutrophils # Man Lymphocytes # (Manual) Monocytes # (Manual) Eosinophils # (Manual) PT INR Fibrinogen dRVVT Confirm Interp Factor V Activity POC ABG pH POC ABG pCO2 32.9 L POC ABG pO2 Sodium Potassium Chloride Carbon Dioxide BUN Creatinine Glucose POC Glucose 185 H Lactic Acid Calcium Phosphorus Magnesium Direct Bilirubin ALT Alkaline Phosphatase Troponin T C-Reactive Protein Total Protein Albumin Triglycerides Cholesterol LDL Cholesterol Direct HDL Cholesterol Urine WBC (Auto) Urine Creatinine Urine Total Protein Vancomycin Trough Rheumatoid Factor Complement C4 Miscellaneous Test Crossmatch See Detail 09/16/16 09/16/16 09/16/16 17:55 19:19 23:48 WBC RBC Hgb Hct MCV MCH MCHC RDW Plt Count Lymph % (Auto) [place] % (Auto) Lymph # [place] # Baso # Seg Neutrophils % Seg Neuts % (Manual) Lymphocytes % (Manual) Monocytes % (Manual) Eosinophils % (Manual) Basophils % (Manual) Nucleated RBC % Seg Neutrophils # Seg Neutrophils # Man Lymphocytes # (Manual) Monocytes # (Manual) Eosinophils # (Manual) PT INR Fibrinogen dRVVT Confirm Interp Factor V Activity POC ABG pH POC ABG pCO2 POC ABG pO2 Sodium Potassium Chloride Carbon Dioxide BUN Creatinine Glucose POC Glucose 222 H 107 H Lactic Acid Calcium Phosphorus Magnesium Direct Bilirubin ALT Alkaline Phosphatase Troponin T C-Reactive Protein Total Protein Albumin Triglycerides Cholesterol LDL Cholesterol Direct HDL Cholesterol Urine WBC (Auto) Urine Creatinine 47.4 H Urine Total Protein 16 H Vancomycin Trough Rheumatoid Factor Complement C4 Miscellaneous Test Crossmatch 09/17/16 09/17/16 09/17/16 03:45 03:45 04:55 WBC 19.6 H RBC 3.41 L Hgb 8.5 L Hct 26.7 L MCV 78 L MCH 25 L MCHC RDW 19.9 H Plt Count Lymph % (Auto) 9.3 L [place] % (Auto) Lymph # [place] # 1.2 H Baso # Seg Neutrophils % 83.9 H Seg Neuts % (Manual) Lymphocytes % (Manual) Monocytes % (Manual) Eosinophils % (Manual) Basophils % (Manual) Nucleated RBC % Seg Neutrophils # 16.4 H Seg Neutrophils # Man Lymphocytes # (Manual) Monocytes # (Manual) Eosinophils # (Manual) PT INR Fibrinogen dRVVT Confirm Interp Factor V Activity POC ABG pH POC ABG pCO2 POC ABG pO2 Sodium 146 H Potassium 5.1 H Chloride 110.9 H Carbon Dioxide 16 L BUN 146 H Creatinine 4.0 H Glucose 108 H POC Glucose 133 H Lactic Acid Calcium Phosphorus Magnesium 3.00 H Direct Bilirubin ALT Alkaline Phosphatase Troponin T C-Reactive Protein Total Protein Albumin Triglycerides Cholesterol LDL Cholesterol Direct HDL Cholesterol Urine WBC (Auto) Urine Creatinine Urine Total Protein Vancomycin Trough Rheumatoid Factor Complement C4 Miscellaneous Test Crossmatch 09/17/16 09/17/16 09/17/16 11:15 17:33 23:47 WBC RBC Hgb Hct MCV MCH MCHC RDW Plt Count Lymph % (Auto) [place] % (Auto) Lymph # [place] # Baso # Seg Neutrophils % Seg Neuts % (Manual) Lymphocytes % (Manual) Monocytes % (Manual) Eosinophils % (Manual) Basophils % (Manual) Nucleated RBC % Seg Neutrophils # Seg Neutrophils # Man Lymphocytes # (Manual) Monocytes # (Manual) Eosinophils # (Manual) PT INR Fibrinogen dRVVT Confirm Interp Factor V Activity POC ABG pH POC ABG pCO2 POC ABG pO2 Sodium Potassium Chloride Carbon Dioxide BUN Creatinine Glucose POC Glucose 176 H 246 H 148 H Lactic Acid Calcium Phosphorus Magnesium Direct Bilirubin ALT Alkaline Phosphatase Troponin T C-Reactive Protein Total Protein Albumin Triglycerides Cholesterol LDL Cholesterol Direct HDL Cholesterol Urine WBC (Auto) Urine Creatinine Urine Total Protein Vancomycin Trough Rheumatoid Factor Complement C4 Miscellaneous Test Crossmatch 09/18/16 09/18/16 09/18/16 05:33 08:31 08:31 WBC 18.0 H RBC 3.17 L Hgb 9.0 L Hct 25.7 L MCV MCH MCHC 35 H RDW 20.4 H Plt Count Lymph % (Auto) [place] % (Auto) Lymph # [place] # Baso # Seg Neutrophils % Seg Neuts % (Manual) Lymphocytes % (Manual) Monocytes % (Manual) Eosinophils % (Manual) Basophils % (Manual) Nucleated RBC % Seg Neutrophils # Seg Neutrophils # Man Lymphocytes # (Manual) Monocytes # (Manual) Eosinophils # (Manual) PT INR Fibrinogen dRVVT Confirm Interp Factor V Activity POC ABG pH POC ABG pCO2 POC ABG pO2 Sodium Potassium Chloride Carbon Dioxide 15 L BUN 124 H Creatinine 3.8 H Glucose POC Glucose 120 H Lactic Acid Calcium 8.1 L Phosphorus Magnesium Direct Bilirubin ALT Alkaline Phosphatase Troponin T C-Reactive Protein Total Protein Albumin Triglycerides Cholesterol LDL Cholesterol Direct HDL Cholesterol Urine WBC (Auto) Urine Creatinine Urine Total Protein Vancomycin Trough Rheumatoid Factor Complement C4 Miscellaneous Test Crossmatch 09/18/16 09/18/16 09/18/16 12:03 15:34 17:50 WBC RBC Hgb Hct MCV MCH MCHC RDW Plt Count Lymph % (Auto) [place] % (Auto) Lymph # [place] # Baso # Seg Neutrophils % Seg Neuts % (Manual) Lymphocytes % (Manual) Monocytes % (Manual) Eosinophils % (Manual) Basophils % (Manual) Nucleated RBC % Seg Neutrophils # Seg Neutrophils # Man Lymphocytes # (Manual) Monocytes # (Manual) Eosinophils # (Manual) PT INR Fibrinogen dRVVT Confirm Interp Factor V Activity POC ABG pH POC ABG pCO2 25.7 L POC ABG pO2 66 L Sodium Potassium Chloride Carbon Dioxide BUN Creatinine Glucose POC Glucose 156 H 220 H Lactic Acid Calcium Phosphorus Magnesium Direct Bilirubin ALT Alkaline Phosphatase Troponin T C-Reactive Protein Total Protein Albumin Triglycerides Cholesterol LDL Cholesterol Direct HDL Cholesterol Urine WBC (Auto) Urine Creatinine Urine Total Protein Vancomycin Trough Rheumatoid Factor Complement C4 Miscellaneous Test Crossmatch 09/19/16 09/19/16 09/19/16 06:21 09:50 09:50 WBC 17.1 H RBC 3.49 L Hgb 9.0 L Hct 28.1 L MCV MCH 26 L MCHC RDW 20.8 H Plt Count Lymph % (Auto) 11.5 L [place] % (Auto) 7.5 H Lymph # [place] # 1.3 H Baso # Seg Neutrophils % 79.8 H Seg Neuts % (Manual) Lymphocytes % (Manual) Monocytes % (Manual) Eosinophils % (Manual) Basophils % (Manual) Nucleated RBC % Seg Neutrophils # 13.7 H Seg Neutrophils # Man Lymphocytes # (Manual) Monocytes # (Manual) Eosinophils # (Manual) PT INR Fibrinogen dRVVT Confirm Interp Factor V Activity POC ABG pH POC ABG pCO2 POC ABG pO2 Sodium Potassium Chloride 108.6 H Carbon Dioxide 15 L BUN 125 H Creatinine 4.1 H Glucose 124 H POC Glucose 119 H Lactic Acid Calcium Phosphorus Magnesium Direct Bilirubin ALT Alkaline Phosphatase Troponin T C-Reactive Protein Total Protein Albumin Triglycerides Cholesterol LDL Cholesterol Direct HDL Cholesterol Urine WBC (Auto) Urine Creatinine Urine Total Protein Vancomycin Trough Rheumatoid Factor Complement C4 Miscellaneous Test Crossmatch 09/19/16 09/19/16 09/19/16 11:25 17:53 23:36 WBC RBC Hgb Hct MCV MCH MCHC RDW Plt Count Lymph % (Auto) [place] % (Auto) Lymph # [place] # Baso # Seg Neutrophils % Seg Neuts % (Manual) Lymphocytes % (Manual) Monocytes % (Manual) Eosinophils % (Manual) Basophils % (Manual) Nucleated RBC % Seg Neutrophils # Seg Neutrophils # Man Lymphocytes # (Manual) Monocytes # (Manual) Eosinophils # (Manual) PT INR Fibrinogen dRVVT Confirm Interp Factor V Activity POC ABG pH POC ABG pCO2 POC ABG pO2 Sodium Potassium Chloride Carbon Dioxide BUN Creatinine Glucose POC Glucose 160 H 245 H 121 H Lactic Acid Calcium Phosphorus Magnesium Direct Bilirubin ALT Alkaline Phosphatase Troponin T C-Reactive Protein Total Protein Albumin Triglycerides Cholesterol LDL Cholesterol Direct HDL Cholesterol Urine WBC (Auto) Urine Creatinine Urine Total Protein Vancomycin Trough Rheumatoid Factor Complement C4 Miscellaneous Test Crossmatch 09/20/16 09/20/16 09/20/16 04:10 04:10 04:10 WBC 17.0 H RBC 3.21 L Hgb 8.2 L Hct 25.5 L MCV MCH 26 L MCHC RDW 20.9 H Plt Count Lymph % (Auto) [place] % (Auto) Lymph # [place] # Baso # Seg Neutrophils % Seg Neuts % (Manual) Lymphocytes % (Manual) Monocytes % (Manual) Eosinophils % (Manual) Basophils % (Manual) Nucleated RBC % Seg Neutrophils # Seg Neutrophils # Man Lymphocytes # (Manual) Monocytes # (Manual) Eosinophils # (Manual) PT INR Fibrinogen dRVVT Confirm Interp Factor V Activity POC ABG pH POC ABG pCO2 POC ABG pO2 Sodium Potassium Chloride 111.0 H Carbon Dioxide 16 L BUN 129 H Creatinine 3.7 H Glucose 115 H POC Glucose Lactic Acid Calcium 8.2 L Phosphorus Magnesium Direct Bilirubin ALT Alkaline Phosphatase Troponin T C-Reactive Protein Total Protein Albumin Triglycerides 243 H Cholesterol LDL Cholesterol Direct HDL Cholesterol Urine WBC (Auto) Urine Creatinine Urine Total Protein Vancomycin Trough Rheumatoid Factor Complement C4 Miscellaneous Test Crossmatch 09/20/16 09/20/16 09/20/16 05:40 11:52 16:50 WBC RBC Hgb Hct MCV MCH MCHC RDW Plt Count Lymph % (Auto) [place] % (Auto) Lymph # [place] # Baso # Seg Neutrophils % Seg Neuts % (Manual) Lymphocytes % (Manual) Monocytes % (Manual) Eosinophils % (Manual) Basophils % (Manual) Nucleated RBC % Seg Neutrophils # Seg Neutrophils # Man Lymphocytes # (Manual) Monocytes # (Manual) Eosinophils # (Manual) PT INR Fibrinogen dRVVT Confirm Interp Factor V Activity POC ABG pH POC ABG pCO2 POC ABG pO2 Sodium Potassium Chloride Carbon Dioxide BUN Creatinine Glucose POC Glucose 131 H 183 H 236 H Lactic Acid Calcium Phosphorus Magnesium Direct Bilirubin ALT Alkaline Phosphatase Troponin T C-Reactive Protein Total Protein Albumin Triglycerides Cholesterol LDL Cholesterol Direct HDL Cholesterol Urine WBC (Auto) Urine Creatinine Urine Total Protein Vancomycin Trough Rheumatoid Factor Complement C4 Miscellaneous Test Crossmatch 09/20/16 09/21/16 09/21/16 23:51 03:30 04:44 WBC RBC Hgb Hct MCV MCH MCHC RDW Plt Count Lymph % (Auto) [place] % (Auto) Lymph # [place] # Baso # Seg Neutrophils % Seg Neuts % (Manual) Lymphocytes % (Manual) Monocytes % (Manual) Eosinophils % (Manual) Basophils % (Manual) Nucleated RBC % Seg Neutrophils # Seg Neutrophils # Man Lymphocytes # (Manual) Monocytes # (Manual) Eosinophils # (Manual) PT INR Fibrinogen dRVVT Confirm Interp Factor V Activity POC ABG pH POC ABG pCO2 POC ABG pO2 Sodium Potassium Chloride Carbon Dioxide BUN Creatinine Glucose POC Glucose 114 H 141 H Lactic Acid Calcium Phosphorus Magnesium 2.70 H Direct Bilirubin ALT Alkaline Phosphatase Troponin T C-Reactive Protein Total Protein Albumin Triglycerides Cholesterol LDL Cholesterol Direct HDL Cholesterol Urine WBC (Auto) Urine Creatinine Urine Total Protein Vancomycin Trough Rheumatoid Factor Complement C4 Miscellaneous Test Crossmatch 09/21/16 09/21/16 09/21/16 07:45 07:45 10:01 WBC 13.8 H RBC 2.94 L Hgb 7.5 L Hct 23.5 L MCV MCH 26 L MCHC RDW 21.2 H Plt Count Lymph % (Auto) 6.9 L [place] % (Auto) 9.4 H Lymph # 0.9 L [place] # 1.3 H Baso # Seg Neutrophils % 83.2 H Seg Neuts % (Manual) Lymphocytes % (Manual) Monocytes % (Manual) Eosinophils % (Manual) Basophils % (Manual) Nucleated RBC % Seg Neutrophils # 11.5 H Seg Neutrophils # Man Lymphocytes # (Manual) Monocytes # (Manual) Eosinophils # (Manual) PT INR Fibrinogen dRVVT Confirm Interp Factor V Activity POC ABG pH 7.308 L POC ABG pCO2 31.9 L POC ABG pO2 148 H Sodium 147 H Potassium Chloride 114.2 H Carbon Dioxide 15 L BUN 120 H Creatinine 3.9 H Glucose 156 H POC Glucose Lactic Acid Calcium 8.2 L Phosphorus Magnesium Direct Bilirubin ALT Alkaline Phosphatase Troponin T C-Reactive Protein Total Protein Albumin Triglycerides Cholesterol LDL Cholesterol Direct HDL Cholesterol Urine WBC (Auto) Urine Creatinine Urine Total Protein Vancomycin Trough Rheumatoid Factor Complement C4 Miscellaneous Test Crossmatch 09/21/16 09/21/16 09/21/16 12:00 12:03 13:00 WBC RBC Hgb Hct MCV MCH MCHC RDW Plt Count Lymph % (Auto) [place] % (Auto) Lymph # [place] # Baso # Seg Neutrophils % Seg Neuts % (Manual) Lymphocytes % (Manual) Monocytes % (Manual) Eosinophils % (Manual) Basophils % (Manual) Nucleated RBC % Seg Neutrophils # Seg Neutrophils # Man Lymphocytes # (Manual) Monocytes # (Manual) Eosinophils # (Manual) PT INR Fibrinogen dRVVT Confirm Interp Factor V Activity POC ABG pH POC ABG pCO2 POC ABG pO2 Sodium Potassium Chloride Carbon Dioxide BUN Creatinine Glucose POC Glucose 163 H Lactic Acid Calcium Phosphorus Magnesium Direct Bilirubin ALT Alkaline Phosphatase Troponin T C-Reactive Protein Total Protein Albumin Triglycerides Cholesterol LDL Cholesterol Direct HDL Cholesterol Urine WBC (Auto) Urine Creatinine 54.8 H Urine Total Protein Vancomycin Trough 2.3 L Rheumatoid Factor Complement C4 Miscellaneous Test Crossmatch 09/21/16 09/21/16 09/22/16 16:51 23:17 06:27 WBC RBC Hgb Hct MCV MCH MCHC RDW Plt Count Lymph % (Auto) [place] % (Auto) Lymph # [place] # Baso # Seg Neutrophils % Seg Neuts % (Manual) Lymphocytes % (Manual) Monocytes % (Manual) Eosinophils % (Manual) Basophils % (Manual) Nucleated RBC % Seg Neutrophils # Seg Neutrophils # Man Lymphocytes # (Manual) Monocytes # (Manual) Eosinophils # (Manual) PT INR Fibrinogen dRVVT Confirm Interp Factor V Activity POC ABG pH POC ABG pCO2 POC ABG pO2 Sodium Potassium Chloride Carbon Dioxide BUN Creatinine Glucose POC Glucose 206 H 114 H 115 H Lactic Acid Calcium Phosphorus Magnesium Direct Bilirubin ALT Alkaline Phosphatase Troponin T C-Reactive Protein Total Protein Albumin Triglycerides Cholesterol LDL Cholesterol Direct HDL Cholesterol Urine WBC (Auto) Urine Creatinine Urine Total Protein Vancomycin Trough Rheumatoid Factor Complement C4 Miscellaneous Test Crossmatch 09/22/16 09/22/16 09/22/16 07:50 07:50 12:00 WBC 17.8 H RBC 3.04 L Hgb 8.0 L Hct 24.7 L MCV MCH 26 L MCHC RDW 21.6 H Plt Count Lymph % (Auto) [place] % (Auto) Lymph # [place] # Baso # Seg Neutrophils % Seg Neuts % (Manual) Lymphocytes % (Manual) Monocytes % (Manual) Eosinophils % (Manual) Basophils % (Manual) Nucleated RBC % Seg Neutrophils # Seg Neutrophils # Man Lymphocytes # (Manual) Monocytes # (Manual) Eosinophils # (Manual) PT INR Fibrinogen dRVVT Confirm Interp Factor V Activity POC ABG pH POC ABG pCO2 POC ABG pO2 Sodium 150 H Potassium Chloride 118.2 H Carbon Dioxide 14 L BUN 111 H Creatinine 3.7 H Glucose 157 H POC Glucose 183 H Lactic Acid Calcium Phosphorus Magnesium Direct Bilirubin ALT Alkaline Phosphatase Troponin T C-Reactive Protein Total Protein Albumin Triglycerides Cholesterol LDL Cholesterol Direct HDL Cholesterol Urine WBC (Auto) Urine Creatinine Urine Total Protein Vancomycin Trough Rheumatoid Factor Complement C4 Miscellaneous Test Crossmatch 09/22/16 09/22/16 09/23/16 17:29 23:10 05:00 WBC 19.2 H RBC 3.13 L Hgb 8.0 L Hct 25.2 L MCV MCH 26 L MCHC RDW 22.1 H Plt Count Lymph % (Auto) [place] % (Auto) Lymph # [place] # Baso # Seg Neutrophils % Seg Neuts % (Manual) 92.0 H Lymphocytes % (Manual) 3.0 L Monocytes % (Manual) Eosinophils % (Manual) Basophils % (Manual) Nucleated RBC % Seg Neutrophils # Seg Neutrophils # Man 17.7 H Lymphocytes # (Manual) 0.6 L Monocytes # (Manual) Eosinophils # (Manual) PT INR Fibrinogen dRVVT Confirm Interp Factor V Activity POC ABG pH POC ABG pCO2 POC ABG pO2 Sodium Potassium Chloride Carbon Dioxide BUN Creatinine Glucose POC Glucose 197 H 169 H Lactic Acid Calcium Phosphorus Magnesium Direct Bilirubin ALT Alkaline Phosphatase Troponin T C-Reactive Protein Total Protein Albumin Triglycerides Cholesterol LDL Cholesterol Direct HDL Cholesterol Urine WBC (Auto) Urine Creatinine Urine Total Protein Vancomycin Trough Rheumatoid Factor Complement C4 Miscellaneous Test Crossmatch 09/23/16 09/23/16 09/23/16 05:00 05:00 05:10 WBC RBC Hgb Hct MCV MCH MCHC RDW Plt Count Lymph % (Auto) [place] % (Auto) Lymph # [place] # Baso # Seg Neutrophils % Seg Neuts % (Manual) Lymphocytes % (Manual) Monocytes % (Manual) Eosinophils % (Manual) Basophils % (Manual) Nucleated RBC % Seg Neutrophils # Seg Neutrophils # Man Lymphocytes # (Manual) Monocytes # (Manual) Eosinophils # (Manual) PT INR Fibrinogen dRVVT Confirm Interp Factor V Activity POC ABG pH POC ABG pCO2 POC ABG pO2 Sodium 147 H Potassium 3.2 L Chloride 115.7 H Carbon Dioxide 13 L BUN 111 H Creatinine 3.8 H Glucose 194 H POC Glucose 188 H Lactic Acid Calcium 7.3 L D Phosphorus Magnesium Direct Bilirubin ALT Alkaline Phosphatase Troponin T C-Reactive Protein 3.20 H Total Protein Albumin Triglycerides Cholesterol LDL Cholesterol Direct HDL Cholesterol Urine WBC (Auto) Urine Creatinine Urine Total Protein Vancomycin Trough Rheumatoid Factor Complement C4 Miscellaneous Test Crossmatch 09/23/16 09/23/16 09/23/16 11:37 12:29 18:01 WBC RBC Hgb Hct MCV MCH MCHC RDW Plt Count Lymph % (Auto) [place] % (Auto) Lymph # [place] # Baso # Seg Neutrophils % Seg Neuts % (Manual) Lymphocytes % (Manual) Monocytes % (Manual) Eosinophils % (Manual) Basophils % (Manual) Nucleated RBC % Seg Neutrophils # Seg Neutrophils # Man Lymphocytes # (Manual) Monocytes # (Manual) Eosinophils # (Manual) PT INR Fibrinogen dRVVT Confirm Interp Factor V Activity POC ABG pH POC ABG pCO2 18.9 L POC ABG pO2 143 H Sodium Potassium Chloride Carbon Dioxide BUN Creatinine Glucose POC Glucose 153 H 108 H Lactic Acid Calcium Phosphorus Magnesium Direct Bilirubin ALT Alkaline Phosphatase Troponin T C-Reactive Protein Total Protein Albumin Triglycerides Cholesterol LDL Cholesterol Direct HDL Cholesterol Urine WBC (Auto) Urine Creatinine Urine Total Protein Vancomycin Trough Rheumatoid Factor Complement C4 Miscellaneous Test Crossmatch 09/23/16 09/23/16 09/24/16 21:19 23:43 05:16 WBC RBC Hgb Hct MCV MCH MCHC RDW Plt Count Lymph % (Auto) [place] % (Auto) Lymph # [place] # Baso # Seg Neutrophils % Seg Neuts % (Manual) Lymphocytes % (Manual) Monocytes % (Manual) Eosinophils % (Manual) Basophils % (Manual) Nucleated RBC % Seg Neutrophils # Seg Neutrophils # Man Lymphocytes # (Manual) Monocytes # (Manual) Eosinophils # (Manual) PT INR Fibrinogen dRVVT Confirm Interp Factor V Activity POC ABG pH POC ABG pCO2 17.3 L POC ABG pO2 112 H Sodium Potassium Chloride Carbon Dioxide BUN Creatinine Glucose POC Glucose 143 H 164 H Lactic Acid Calcium Phosphorus Magnesium Direct Bilirubin ALT Alkaline Phosphatase Troponin T C-Reactive Protein Total Protein Albumin Triglycerides Cholesterol LDL Cholesterol Direct HDL Cholesterol Urine WBC (Auto) Urine Creatinine Urine Total Protein Vancomycin Trough Rheumatoid Factor Complement C4 Miscellaneous Test Crossmatch 09/24/16 09/24/16 09/24/16 05:21 11:58 17:06 WBC RBC Hgb Hct MCV MCH MCHC RDW Plt Count Lymph % (Auto) [place] % (Auto) Lymph # [place] # Baso # Seg Neutrophils % Seg Neuts % (Manual) Lymphocytes % (Manual) Monocytes % (Manual) Eosinophils % (Manual) Basophils % (Manual) Nucleated RBC % Seg Neutrophils # Seg Neutrophils # Man Lymphocytes # (Manual) Monocytes # (Manual) Eosinophils # (Manual) PT INR Fibrinogen dRVVT Confirm Interp Factor V Activity POC ABG pH POC ABG pCO2 POC ABG pO2 Sodium Potassium Chloride Carbon Dioxide 10 L BUN 103 H Creatinine 4.3 H Glucose 163 H POC Glucose 173 H 167 H Lactic Acid Calcium 6.5 L Phosphorus Magnesium Direct Bilirubin ALT Alkaline Phosphatase Troponin T C-Reactive Protein Total Protein Albumin Triglycerides Cholesterol LDL Cholesterol Direct HDL Cholesterol Urine WBC (Auto) Urine Creatinine Urine Total Protein Vancomycin Trough Rheumatoid Factor Complement C4 Miscellaneous Test Crossmatch 09/24/16 09/24/16 09/24/16 20:15 21:02 23:48 WBC RBC Hgb Hct MCV MCH MCHC RDW Plt Count Lymph % (Auto) [place] % (Auto) Lymph # [place] # Baso # Seg Neutrophils % Seg Neuts % (Manual) Lymphocytes % (Manual) Monocytes % (Manual) Eosinophils % (Manual) Basophils % (Manual) Nucleated RBC % Seg Neutrophils # Seg Neutrophils # Man Lymphocytes # (Manual) Monocytes # (Manual) Eosinophils # (Manual) PT INR Fibrinogen dRVVT Confirm Interp Factor V Activity POC ABG pH 7.288 L POC ABG pCO2 30.2 L 21.5 L POC ABG pO2 32 L 39 L Sodium Potassium Chloride Carbon Dioxide BUN Creatinine Glucose POC Glucose 109 H Lactic Acid Calcium Phosphorus Magnesium Direct Bilirubin ALT Alkaline Phosphatase Troponin T C-Reactive Protein Total Protein Albumin Triglycerides Cholesterol LDL Cholesterol Direct HDL Cholesterol Urine WBC (Auto) Urine Creatinine Urine Total Protein Vancomycin Trough Rheumatoid Factor Complement C4 Miscellaneous Test Crossmatch 09/25/16 09/25/16 09/25/16 04:20 04:20 04:20 WBC RBC 2.58 L Hgb 7.0 L Hct 21.0 L MCV MCH 27 L MCHC RDW 23.8 H Plt Count Lymph % (Auto) [place] % (Auto) Lymph # [place] # Baso # Seg Neutrophils % Seg Neuts % (Manual) Lymphocytes % (Manual) 12.0 L Monocytes % (Manual) Eosinophils % (Manual) 7.0 H Basophils % (Manual) 2.0 H Nucleated RBC % Seg Neutrophils # Seg Neutrophils # Man Lymphocytes # (Manual) 0.9 L Monocytes # (Manual) Eosinophils # (Manual) 0.5 H PT INR Fibrinogen dRVVT Confirm Interp Factor V Activity POC ABG pH POC ABG pCO2 POC ABG pO2 Sodium Potassium Chloride Carbon Dioxide 15 L BUN 72 H Creatinine 3.8 H Glucose POC Glucose Lactic Acid Calcium 6.0 L Phosphorus 4.60 H Magnesium 1.60 L Direct Bilirubin ALT Alkaline Phosphatase Troponin T C-Reactive Protein Total Protein Albumin Triglycerides Cholesterol LDL Cholesterol Direct HDL Cholesterol Urine WBC (Auto) Urine Creatinine Urine Total Protein Vancomycin Trough Rheumatoid Factor Complement C4 Miscellaneous Test Crossmatch 09/25/16 09/25/16 09/25/16 04:57 08:02 10:30 WBC RBC Hgb Hct MCV MCH MCHC RDW Plt Count Lymph % (Auto) [place] % (Auto) Lymph # [place] # Baso # Seg Neutrophils % Seg Neuts % (Manual) Lymphocytes % (Manual) Monocytes % (Manual) Eosinophils % (Manual) Basophils % (Manual) Nucleated RBC % Seg Neutrophils # Seg Neutrophils # Man Lymphocytes # (Manual) Monocytes # (Manual) Eosinophils # (Manual) PT INR Fibrinogen dRVVT Confirm Interp Factor V Activity POC ABG pH POC ABG pCO2 24.7 L POC ABG pO2 152 H Sodium Potassium Chloride Carbon Dioxide BUN Creatinine Glucose POC Glucose 113 H Lactic Acid Calcium Phosphorus Magnesium Direct Bilirubin ALT Alkaline Phosphatase Troponin T C-Reactive Protein Total Protein Albumin Triglycerides Cholesterol LDL Cholesterol Direct HDL Cholesterol Urine WBC (Auto) Urine Creatinine Urine Total Protein Vancomycin Trough Rheumatoid Factor Complement C4 Miscellaneous Test Crossmatch See Detail 09/25/16 09/25/16 09/25/16 12:05 17:44 23:47 WBC RBC Hgb Hct MCV MCH MCHC RDW Plt Count Lymph % (Auto) [place] % (Auto) Lymph # [place] # Baso # Seg Neutrophils % Seg Neuts % (Manual) Lymphocytes % (Manual) Monocytes % (Manual) Eosinophils % (Manual) Basophils % (Manual) Nucleated RBC % Seg Neutrophils # Seg Neutrophils # Man Lymphocytes # (Manual) Monocytes # (Manual) Eosinophils # (Manual) PT INR Fibrinogen dRVVT Confirm Interp Factor V Activity POC ABG pH POC ABG pCO2 POC ABG pO2 Sodium Potassium Chloride Carbon Dioxide BUN Creatinine Glucose POC Glucose 117 H 119 H 150 H Lactic Acid Calcium Phosphorus Magnesium Direct Bilirubin ALT Alkaline Phosphatase Troponin T C-Reactive Protein Total Protein Albumin Triglycerides Cholesterol LDL Cholesterol Direct HDL Cholesterol Urine WBC (Auto) Urine Creatinine Urine Total Protein Vancomycin Trough Rheumatoid Factor Complement C4 Miscellaneous Test Crossmatch 09/26/16 09/26/16 09/26/16 04:25 04:25 04:25 WBC RBC 2.65 L Hgb 7.4 L Hct 21.6 L MCV MCH MCHC RDW 22.5 H Plt Count Lymph % (Auto) [place] % (Auto) Lymph # [place] # Baso # Seg Neutrophils % Seg Neuts % (Manual) Lymphocytes % (Manual) 6.0 L Monocytes % (Manual) Eosinophils % (Manual) 11.0 H Basophils % (Manual) Nucleated RBC % Seg Neutrophils # Seg Neutrophils # Man Lymphocytes # (Manual) 0.4 L Monocytes # (Manual) Eosinophils # (Manual) 0.6 H PT INR Fibrinogen dRVVT Confirm Interp Factor V Activity POC ABG pH POC ABG pCO2 POC ABG pO2 Sodium Potassium Chloride 97.0 L Carbon Dioxide 19 L BUN 43 H Creatinine 2.6 H Glucose 130 H POC Glucose Lactic Acid 4.40 H* Calcium 6.7 L Phosphorus Magnesium Direct Bilirubin ALT Alkaline Phosphatase Troponin T C-Reactive Protein Total Protein Albumin Triglycerides Cholesterol LDL Cholesterol Direct HDL Cholesterol Urine WBC (Auto) Urine Creatinine Urine Total Protein Vancomycin Trough Rheumatoid Factor Complement C4 Miscellaneous Test Crossmatch 09/26/16 09/26/16 09/26/16 05:20 11:44 12:12 WBC RBC Hgb Hct MCV MCH MCHC RDW Plt Count Lymph % (Auto) [place] % (Auto) Lymph # [place] # Baso # Seg Neutrophils % Seg Neuts % (Manual) Lymphocytes % (Manual) Monocytes % (Manual) Eosinophils % (Manual) Basophils % (Manual) Nucleated RBC % Seg Neutrophils # Seg Neutrophils # Man Lymphocytes # (Manual) Monocytes # (Manual) Eosinophils # (Manual) PT INR Fibrinogen dRVVT Confirm Interp Factor V Activity POC ABG pH POC ABG pCO2 27.0 L POC ABG pO2 69 L Sodium Potassium Chloride Carbon Dioxide BUN Creatinine Glucose POC Glucose 121 H 128 H Lactic Acid Calcium Phosphorus Magnesium Direct Bilirubin ALT Alkaline Phosphatase Troponin T C-Reactive Protein Total Protein Albumin Triglycerides Cholesterol LDL Cholesterol Direct HDL Cholesterol Urine WBC (Auto) Urine Creatinine Urine Total Protein Vancomycin Trough Rheumatoid Factor Complement C4 Miscellaneous Test Crossmatch 09/26/16 09/26/16 09/27/16 18:31 23:40 08:20 WBC RBC Hgb Hct MCV MCH MCHC RDW Plt Count Lymph % (Auto) [place] % (Auto) Lymph # [place] # Baso # Seg Neutrophils % Seg Neuts % (Manual) Lymphocytes % (Manual) Monocytes % (Manual) Eosinophils % (Manual) Basophils % (Manual) Nucleated RBC % Seg Neutrophils # Seg Neutrophils # Man Lymphocytes # (Manual) Monocytes # (Manual) Eosinophils # (Manual) PT INR Fibrinogen dRVVT Confirm Interp Factor V Activity POC ABG pH POC ABG pCO2 POC ABG pO2 Sodium Potassium Chloride Carbon Dioxide BUN Creatinine Glucose POC Glucose 120 H 133 H Lactic Acid 4.10 H* Calcium Phosphorus Magnesium Direct Bilirubin ALT Alkaline Phosphatase Troponin T C-Reactive Protein Total Protein Albumin Triglycerides Cholesterol LDL Cholesterol Direct HDL Cholesterol Urine WBC (Auto) Urine Creatinine Urine Total Protein Vancomycin Trough Rheumatoid Factor Complement C4 Miscellaneous Test Crossmatch 09/27/16 09/27/16 09/27/16 11:23 15:00 18:15 WBC RBC Hgb Hct MCV MCH MCHC RDW Plt Count Lymph % (Auto) [place] % (Auto) Lymph # [place] # Baso # Seg Neutrophils % Seg Neuts % (Manual) Lymphocytes % (Manual) Monocytes % (Manual) Eosinophils % (Manual) Basophils % (Manual) Nucleated RBC % Seg Neutrophils # Seg Neutrophils # Man Lymphocytes # (Manual) Monocytes # (Manual) Eosinophils # (Manual) PT INR Fibrinogen dRVVT Confirm Interp Factor V Activity POC ABG pH 7.459 H POC ABG pCO2 27.1 L POC ABG pO2 140 H Sodium Potassium Chloride Carbon Dioxide BUN Creatinine Glucose POC Glucose 114 H 127 H Lactic Acid Calcium Phosphorus Magnesium Direct Bilirubin ALT Alkaline Phosphatase Troponin T C-Reactive Protein Total Protein Albumin Triglycerides Cholesterol LDL Cholesterol Direct HDL Cholesterol Urine WBC (Auto) Urine Creatinine Urine Total Protein Vancomycin Trough Rheumatoid Factor Complement C4 Miscellaneous Test Crossmatch 09/27/16 09/27/16 09/28/16 Unknown Unknown 03:45 WBC RBC 2.49 L Hgb 6.8 L Hct 20.7 L MCV MCH 27 L MCHC RDW 22.1 H Plt Count Lymph % (Auto) [place] % (Auto) Lymph # [place] # Baso # Seg Neutrophils % Seg Neuts % (Manual) 32.0 L Lymphocytes % (Manual) 12.0 L Monocytes % (Manual) 11.0 H Eosinophils % (Manual) 10.0 H Basophils % (Manual) Nucleated RBC % Seg Neutrophils # Seg Neutrophils # Man Lymphocytes # (Manual) 1.0 L Monocytes # (Manual) 0.9 H Eosinophils # (Manual) 0.8 H PT INR Fibrinogen dRVVT Confirm Interp Factor V Activity POC ABG pH POC ABG pCO2 POC ABG pO2 Sodium 135 L 135 L Potassium 3.5 L Chloride 93.6 L 94.4 L Carbon Dioxide 17 L 21 L BUN 45 H 28 H Creatinine 3.3 H 2.5 H Glucose 106 H POC Glucose Lactic Acid Calcium 7.3 L 7.1 L Phosphorus Magnesium Direct Bilirubin ALT Alkaline Phosphatase Troponin T C-Reactive Protein Total Protein Albumin Triglycerides Cholesterol LDL Cholesterol Direct HDL Cholesterol Urine WBC (Auto) Urine Creatinine Urine Total Protein Vancomycin Trough Rheumatoid Factor Complement C4 Miscellaneous Test Crossmatch 09/28/16 09/28/16 09/28/16 03:45 07:25 11:58 WBC 13.3 H RBC 3.01 L Hgb 8.4 L Hct 25.0 L MCV MCH MCHC RDW 20.5 H Plt Count 128 L Lymph % (Auto) [place] % (Auto) Lymph # [place] # Baso # Seg Neutrophils % Seg Neuts % (Manual) Lymphocytes % (Manual) 7.0 L Monocytes % (Manual) Eosinophils % (Manual) 6.0 H Basophils % (Manual) Nucleated RBC % Seg Neutrophils # Seg Neutrophils # Man Lymphocytes # (Manual) 0.9 L Monocytes # (Manual) Eosinophils # (Manual) 0.8 H PT INR Fibrinogen dRVVT Confirm Interp Factor V Activity POC ABG pH POC ABG pCO2 POC ABG pO2 Sodium Potassium Chloride Carbon Dioxide BUN Creatinine Glucose POC Glucose 121 H Lactic Acid 4.50 H* Calcium Phosphorus Magnesium Direct Bilirubin ALT Alkaline Phosphatase Troponin T C-Reactive Protein Total Protein Albumin Triglycerides Cholesterol LDL Cholesterol Direct HDL Cholesterol Urine WBC (Auto) Urine Creatinine Urine Total Protein Vancomycin Trough Rheumatoid Factor Complement C4 Miscellaneous Test Crossmatch 09/29/16 09/29/16 09/29/16 06:45 06:45 06:45 WBC 14.9 H RBC 2.74 L Hgb 7.6 L Hct 23.2 L MCV MCH MCHC RDW 20.5 H Plt Count 81 L Lymph % (Auto) [place] % (Auto) Lymph # [place] # Baso # Seg Neutrophils % Seg Neuts % (Manual) 81.0 H Lymphocytes % (Manual) 4.0 L Monocytes % (Manual) Eosinophils % (Manual) Basophils % (Manual) Nucleated RBC % Seg Neutrophils # Seg Neutrophils # Man 12.1 H Lymphocytes # (Manual) 0.6 L Monocytes # (Manual) Eosinophils # (Manual) PT INR Fibrinogen dRVVT Confirm Interp Factor V Activity POC ABG pH POC ABG pCO2 POC ABG pO2 Sodium 133 L Potassium 3.4 L Chloride 92.5 L Carbon Dioxide 21 L BUN 33 H Creatinine 3.0 H Glucose POC Glucose Lactic Acid Calcium 6.6 L Phosphorus Magnesium 1.40 L Direct Bilirubin 0.9 H ALT Alkaline Phosphatase Troponin T C-Reactive Protein Total Protein 4.3 L Albumin 1.3 L Triglycerides Cholesterol LDL Cholesterol Direct HDL Cholesterol Urine WBC (Auto) Urine Creatinine Urine Total Protein Vancomycin Trough Rheumatoid Factor Complement C4 Miscellaneous Test Crossmatch 09/29/16 09/29/16 09/30/16 17:52 20:12 00:07 WBC RBC Hgb Hct MCV MCH MCHC RDW Plt Count Lymph % (Auto) [place] % (Auto) Lymph # [place] # Baso # Seg Neutrophils % Seg Neuts % (Manual) Lymphocytes % (Manual) Monocytes % (Manual) Eosinophils % (Manual) Basophils % (Manual) Nucleated RBC % Seg Neutrophils # Seg Neutrophils # Man Lymphocytes # (Manual) Monocytes # (Manual) Eosinophils # (Manual) PT INR Fibrinogen dRVVT Confirm Interp Factor V Activity POC ABG pH POC ABG pCO2 POC ABG pO2 Sodium Potassium Chloride Carbon Dioxide BUN Creatinine Glucose POC Glucose 50 L 51 L Lactic Acid Calcium Phosphorus Magnesium Direct Bilirubin ALT Alkaline Phosphatase Troponin T 0.204 H* C-Reactive Protein Total Protein Albumin Triglycerides Cholesterol 31 L LDL Cholesterol Direct 4 L HDL Cholesterol 3 L Urine WBC (Auto) Urine Creatinine Urine Total Protein Vancomycin Trough Rheumatoid Factor Complement C4 Miscellaneous Test Crossmatch 09/30/16 09/30/16 09/30/16 01:30 05:15 06:10 WBC RBC Hgb Hct MCV MCH MCHC RDW Plt Count Lymph % (Auto) [place] % (Auto) Lymph # [place] # Baso # Seg Neutrophils % Seg Neuts % (Manual) Lymphocytes % (Manual) Monocytes % (Manual) Eosinophils % (Manual) Basophils % (Manual) Nucleated RBC % Seg Neutrophils # Seg Neutrophils # Man Lymphocytes # (Manual) Monocytes # (Manual) Eosinophils # (Manual) PT INR Fibrinogen dRVVT Confirm Interp Factor V Activity POC ABG pH POC ABG pCO2 POC ABG pO2 Sodium 133 L Potassium 3.2 L Chloride 93.2 L Carbon Dioxide 19 L BUN 36 H Creatinine 3.2 H Glucose 104 H POC Glucose 167 H 146 H Lactic Acid Calcium 6.4 L Phosphorus Magnesium 1.60 L Direct Bilirubin ALT Alkaline Phosphatase Troponin T C-Reactive Protein Total Protein Albumin Triglycerides Cholesterol LDL Cholesterol Direct HDL Cholesterol Urine WBC (Auto) Urine Creatinine Urine Total Protein Vancomycin Trough Rheumatoid Factor Complement C4 Miscellaneous Test Crossmatch 09/30/16 09/30/16 09/30/16 11:26 13:39 18:38 WBC RBC Hgb Hct MCV MCH MCHC RDW Plt Count Lymph % (Auto) [place] % (Auto) Lymph # [place] # Baso # Seg Neutrophils % Seg Neuts % (Manual) Lymphocytes % (Manual) Monocytes % (Manual) Eosinophils % (Manual) Basophils % (Manual) Nucleated RBC % Seg Neutrophils # Seg Neutrophils # Man Lymphocytes # (Manual) Monocytes # (Manual) Eosinophils # (Manual) PT INR Fibrinogen dRVVT Confirm Interp Factor V Activity POC ABG pH 7.479 H POC ABG pCO2 29.8 L POC ABG pO2 117 H Sodium Potassium Chloride Carbon Dioxide BUN Creatinine Glucose POC Glucose 140 H 122 H Lactic Acid Calcium Phosphorus Magnesium Direct Bilirubin ALT Alkaline Phosphatase Troponin T C-Reactive Protein Total Protein Albumin Triglycerides Cholesterol LDL Cholesterol Direct HDL Cholesterol Urine WBC (Auto) Urine Creatinine Urine Total Protein Vancomycin Trough Rheumatoid Factor Complement C4 Miscellaneous Test Crossmatch 10/01/16 10/01/16 10/01/16 06:00 06:00 12:37 WBC 12.6 H RBC 2.75 L Hgb 7.3 L Hct 23.3 L MCV MCH 27 L MCHC RDW 20.6 H Plt Count 72 L Lymph % (Auto) [place] % (Auto) Lymph # [place] # Baso # Seg Neutrophils % Seg Neuts % (Manual) 31.0 L Lymphocytes % (Manual) 8.0 L Monocytes % (Manual) Eosinophils % (Manual) Basophils % (Manual) Nucleated RBC % 3.0 H Seg Neutrophils # Seg Neutrophils # Man Lymphocytes # (Manual) 1.0 L Monocytes # (Manual) Eosinophils # (Manual) PT INR Fibrinogen dRVVT Confirm Interp Factor V Activity POC ABG pH POC ABG pCO2 POC ABG pO2 Sodium 127 L Potassium Chloride 86.8 L Carbon Dioxide 20 L BUN 42 H Creatinine 3.5 H Glucose POC Glucose 65 L Lactic Acid Calcium 7.0 L Phosphorus Magnesium Direct Bilirubin ALT Alkaline Phosphatase Troponin T C-Reactive Protein Total Protein Albumin Triglycerides Cholesterol LDL Cholesterol Direct HDL Cholesterol Urine WBC (Auto) Urine Creatinine Urine Total Protein Vancomycin Trough Rheumatoid Factor Complement C4 Miscellaneous Test Crossmatch 10/01/16 10/01/16 10/02/16 17:39 23:32 00:59 WBC RBC Hgb Hct MCV MCH MCHC RDW Plt Count Lymph % (Auto) [place] % (Auto) Lymph # [place] # Baso # Seg Neutrophils % Seg Neuts % (Manual) Lymphocytes % (Manual) Monocytes % (Manual) Eosinophils % (Manual) Basophils % (Manual) Nucleated RBC % Seg Neutrophils # Seg Neutrophils # Man Lymphocytes # (Manual) Monocytes # (Manual) Eosinophils # (Manual) PT INR Fibrinogen dRVVT Confirm Interp Factor V Activity POC ABG pH POC ABG pCO2 POC ABG pO2 Sodium Potassium Chloride Carbon Dioxide BUN Creatinine Glucose POC Glucose 107 H 52 L 145 H Lactic Acid Calcium Phosphorus Magnesium Direct Bilirubin ALT Alkaline Phosphatase Troponin T C-Reactive Protein Total Protein Albumin Triglycerides Cholesterol LDL Cholesterol Direct HDL Cholesterol Urine WBC (Auto) Urine Creatinine Urine Total Protein Vancomycin Trough Rheumatoid Factor Complement C4 Miscellaneous Test Crossmatch 10/02/16 10/02/16 10/02/16 10:30 10:50 10:50 WBC 14.7 H RBC 2.76 L Hgb 7.4 L Hct 23.6 L MCV MCH 27 L MCHC RDW 20.2 H Plt Count 79 L Lymph % (Auto) [place] % (Auto) Lymph # [place] # Baso # Seg Neutrophils % Seg Neuts % (Manual) 86.0 H Lymphocytes % (Manual) 6.0 L Monocytes % (Manual) Eosinophils % (Manual) Basophils % (Manual) Nucleated RBC % Seg Neutrophils # Seg Neutrophils # Man 12.6 H Lymphocytes # (Manual) 0.9 L Monocytes # (Manual) Eosinophils # (Manual) PT INR Fibrinogen dRVVT Confirm Interp Factor V Activity POC ABG pH 7.486 H POC ABG pCO2 30.1 L POC ABG pO2 108 H Sodium 131 L Potassium 3.4 L Chloride 89.9 L Carbon Dioxide BUN 26 H Creatinine 2.6 H Glucose POC Glucose Lactic Acid Calcium 7.0 L Phosphorus Magnesium Direct Bilirubin ALT Alkaline Phosphatase Troponin T C-Reactive Protein Total Protein Albumin Triglycerides Cholesterol LDL Cholesterol Direct HDL Cholesterol Urine WBC (Auto) Urine Creatinine Urine Total Protein Vancomycin Trough Rheumatoid Factor Complement C4 Miscellaneous Test Crossmatch 10/02/16 10/03/16 10/03/16 23:45 00:45 05:10 WBC 12.9 H RBC 2.77 L Hgb 7.6 L Hct 23.7 L MCV MCH 27 L MCHC RDW 19.7 H Plt Count 89 L Lymph % (Auto) [place] % (Auto) Lymph # [place] # Baso # Seg Neutrophils % Seg Neuts % (Manual) Lymphocytes % (Manual) 8.0 L Monocytes % (Manual) Eosinophils % (Manual) Basophils % (Manual) Nucleated RBC % Seg Neutrophils # 11.9 H Seg Neutrophils # Man Lymphocytes # (Manual) 1.0 L Monocytes # (Manual) Eosinophils # (Manual) PT INR Fibrinogen dRVVT Confirm Interp Factor V Activity POC ABG pH POC ABG pCO2 POC ABG pO2 Sodium Potassium Chloride Carbon Dioxide BUN Creatinine Glucose POC Glucose 55 L 199 H Lactic Acid Calcium Phosphorus Magnesium Direct Bilirubin ALT Alkaline Phosphatase Troponin T C-Reactive Protein Total Protein Albumin Triglycerides Cholesterol LDL Cholesterol Direct HDL Cholesterol Urine WBC (Auto) Urine Creatinine Urine Total Protein Vancomycin Trough Rheumatoid Factor Complement C4 Miscellaneous Test Crossmatch 10/03/16 10/03/16 10/03/16 05:10 12:14 13:18 WBC RBC Hgb Hct MCV MCH MCHC RDW Plt Count Lymph % (Auto) [place] % (Auto) Lymph # [place] # Baso # Seg Neutrophils % Seg Neuts % (Manual) Lymphocytes % (Manual) Monocytes % (Manual) Eosinophils % (Manual) Basophils % (Manual) Nucleated RBC % Seg Neutrophils # Seg Neutrophils # Man Lymphocytes # (Manual) Monocytes # (Manual) Eosinophils # (Manual) PT INR Fibrinogen dRVVT Confirm Interp Factor V Activity POC ABG pH POC ABG pCO2 POC ABG pO2 Sodium 129 L Potassium 3.3 L Chloride 88.8 L Carbon Dioxide 20 L BUN 29 H Creatinine 2.8 H Glucose POC Glucose 68 L 127 H Lactic Acid Calcium 7.2 L Phosphorus Magnesium Direct Bilirubin ALT Alkaline Phosphatase Troponin T C-Reactive Protein Total Protein Albumin Triglycerides Cholesterol LDL Cholesterol Direct HDL Cholesterol Urine WBC (Auto) Urine Creatinine Urine Total Protein Vancomycin Trough Rheumatoid Factor Complement C4 Miscellaneous Test Crossmatch 10/03/16 10/03/16 10/03/16 14:42 18:21 19:09 WBC RBC Hgb Hct MCV MCH MCHC RDW Plt Count Lymph % (Auto) [place] % (Auto) Lymph # [place] # Baso # Seg Neutrophils % Seg Neuts % (Manual) Lymphocytes % (Manual) Monocytes % (Manual) Eosinophils % (Manual) Basophils % (Manual) Nucleated RBC % Seg Neutrophils # Seg Neutrophils # Man Lymphocytes # (Manual) Monocytes # (Manual) Eosinophils # (Manual) PT INR Fibrinogen dRVVT Confirm Interp Factor V Activity POC ABG pH 7.499 H POC ABG pCO2 28.4 L POC ABG pO2 44 L Sodium Potassium Chloride Carbon Dioxide BUN Creatinine Glucose POC Glucose 64 L 205 H Lactic Acid Calcium Phosphorus Magnesium Direct Bilirubin ALT Alkaline Phosphatase Troponin T C-Reactive Protein Total Protein Albumin Triglycerides Cholesterol LDL Cholesterol Direct HDL Cholesterol Urine WBC (Auto) Urine Creatinine Urine Total Protein Vancomycin Trough Rheumatoid Factor Complement C4 Miscellaneous Test Crossmatch 10/03/16 10/04/16 10/04/16 23:33 04:18 06:30 WBC RBC 2.54 L Hgb 7.1 L Hct 21.7 L MCV MCH MCHC RDW 19.5 H Plt Count 76 L Lymph % (Auto) [place] % (Auto) Lymph # [place] # Baso # Seg Neutrophils % Seg Neuts % (Manual) 88.0 H Lymphocytes % (Manual) 6.0 L Monocytes % (Manual) Eosinophils % (Manual) Basophils % (Manual) Nucleated RBC % Seg Neutrophils # Seg Neutrophils # Man 8.8 H Lymphocytes # (Manual) 0.6 L Monocytes # (Manual) Eosinophils # (Manual) PT INR Fibrinogen dRVVT Confirm Interp Factor V Activity POC ABG pH 7.461 H POC ABG pCO2 33.6 L POC ABG pO2 211 H Sodium Potassium Chloride Carbon Dioxide BUN Creatinine Glucose POC Glucose 136 H Lactic Acid Calcium Phosphorus Magnesium Direct Bilirubin ALT Alkaline Phosphatase Troponin T C-Reactive Protein Total Protein Albumin Triglycerides Cholesterol LDL Cholesterol Direct HDL Cholesterol Urine WBC (Auto) Urine Creatinine Urine Total Protein Vancomycin Trough Rheumatoid Factor Complement C4 Miscellaneous Test Crossmatch 10/04/16 10/04/16 10/04/16 06:30 11:45 17:54 WBC RBC Hgb Hct MCV MCH MCHC RDW Plt Count Lymph % (Auto) [place] % (Auto) Lymph # [place] # Baso # Seg Neutrophils % Seg Neuts % (Manual) Lymphocytes % (Manual) Monocytes % (Manual) Eosinophils % (Manual) Basophils % (Manual) Nucleated RBC % Seg Neutrophils # Seg Neutrophils # Man Lymphocytes # (Manual) Monocytes # (Manual) Eosinophils # (Manual) PT INR Fibrinogen dRVVT Confirm Interp Factor V Activity POC ABG pH POC ABG pCO2 POC ABG pO2 Sodium 128 L Potassium Chloride 87.4 L Carbon Dioxide 20 L BUN 34 H Creatinine 2.9 H Glucose 127 H POC Glucose 158 H 160 H Lactic Acid Calcium 7.4 L Phosphorus Magnesium Direct Bilirubin ALT Alkaline Phosphatase Troponin T C-Reactive Protein Total Protein Albumin Triglycerides Cholesterol LDL Cholesterol Direct HDL Cholesterol Urine WBC (Auto) Urine Creatinine Urine Total Protein Vancomycin Trough Rheumatoid Factor Complement C4 Miscellaneous Test Crossmatch 10/04/16 10/05/16 10/05/16 23:25 04:30 05:00 WBC RBC 2.64 L Hgb 7.5 L Hct 22.6 L MCV MCH MCHC RDW 19.3 H Plt Count 80 L Lymph % (Auto) [place] % (Auto) Lymph # [place] # Baso # Seg Neutrophils % Seg Neuts % (Manual) Lymphocytes % (Manual) 12.0 L Monocytes % (Manual) Eosinophils % (Manual) Basophils % (Manual) Nucleated RBC % Seg Neutrophils # Seg Neutrophils # Man Lymphocytes # (Manual) Monocytes # (Manual) Eosinophils # (Manual) PT INR Fibrinogen dRVVT Confirm Interp Factor V Activity POC ABG pH 7.475 H POC ABG pCO2 33.3 L POC ABG pO2 140 H Sodium Potassium Chloride Carbon Dioxide BUN Creatinine Glucose POC Glucose 141 H Lactic Acid Calcium Phosphorus Magnesium Direct Bilirubin ALT Alkaline Phosphatase Troponin T C-Reactive Protein Total Protein Albumin Triglycerides Cholesterol LDL Cholesterol Direct HDL Cholesterol Urine WBC (Auto) Urine Creatinine Urine Total Protein Vancomycin Trough Rheumatoid Factor Complement C4 Miscellaneous Test Crossmatch 10/05/16 10/05/16 10/05/16 05:00 05:09 12:58 WBC RBC Hgb Hct MCV MCH MCHC RDW Plt Count Lymph % (Auto) [place] % (Auto) Lymph # [place] # Baso # Seg Neutrophils % Seg Neuts % (Manual) Lymphocytes % (Manual) Monocytes % (Manual) Eosinophils % (Manual) Basophils % (Manual) Nucleated RBC % Seg Neutrophils # Seg Neutrophils # Man Lymphocytes # (Manual) Monocytes # (Manual) Eosinophils # (Manual) PT INR Fibrinogen dRVVT Confirm Interp Factor V Activity POC ABG pH POC ABG pCO2 POC ABG pO2 Sodium 131 L Potassium Chloride 94.0 L Carbon Dioxide 20 L BUN 22 H Creatinine 2.0 H Glucose 123 H POC Glucose 166 H 179 H Lactic Acid Calcium 7.7 L Phosphorus 2.20 L D Magnesium Direct Bilirubin ALT Alkaline Phosphatase Troponin T C-Reactive Protein Total Protein Albumin Triglycerides Cholesterol LDL Cholesterol Direct HDL Cholesterol Urine WBC (Auto) Urine Creatinine Urine Total Protein Vancomycin Trough Rheumatoid Factor Complement C4 Miscellaneous Test Crossmatch 10/05/16 10/05/16 10/05/16 15:50 18:53 23:12 WBC RBC Hgb Hct MCV MCH MCHC RDW Plt Count Lymph % (Auto) [place] % (Auto) Lymph # [place] # Baso # Seg Neutrophils % Seg Neuts % (Manual) Lymphocytes % (Manual) Monocytes % (Manual) Eosinophils % (Manual) Basophils % (Manual) Nucleated RBC % Seg Neutrophils # Seg Neutrophils # Man Lymphocytes # (Manual) Monocytes # (Manual) Eosinophils # (Manual) PT INR Fibrinogen dRVVT Confirm Interp Factor V Activity POC ABG pH POC ABG pCO2 POC ABG pO2 Sodium Potassium Chloride Carbon Dioxide BUN Creatinine Glucose POC Glucose 150 H 164 H Lactic Acid Calcium Phosphorus Magnesium Direct Bilirubin ALT Alkaline Phosphatase Troponin T C-Reactive Protein Total Protein Albumin Triglycerides Cholesterol LDL Cholesterol Direct HDL Cholesterol Urine WBC (Auto) Urine Creatinine Urine Total Protein Vancomycin Trough Rheumatoid Factor Complement C4 Miscellaneous Test Crossmatch See Detail 10/06/16 10/06/16 10/06/16 03:50 03:50 04:53 WBC RBC 3.00 L Hgb 8.6 L Hct 25.8 L MCV MCH MCHC RDW 17.9 H Plt Count 65 L Lymph % (Auto) [place] % (Auto) Lymph # [place] # Baso # Seg Neutrophils % Seg Neuts % (Manual) 30.0 L Lymphocytes % (Manual) 5.0 L Monocytes % (Manual) Eosinophils % (Manual) Basophils % (Manual) Nucleated RBC % Seg Neutrophils # Seg Neutrophils # Man Lymphocytes # (Manual) 0.4 L Monocytes # (Manual) Eosinophils # (Manual) PT INR Fibrinogen dRVVT Confirm Interp Factor V Activity POC ABG pH 7.310 L POC ABG pCO2 49.0 H POC ABG pO2 Sodium 133 L Potassium Chloride 95.9 L Carbon Dioxide BUN 26 H Creatinine 2.0 H Glucose 116 H POC Glucose Lactic Acid Calcium 7.8 L Phosphorus Magnesium Direct Bilirubin ALT Alkaline Phosphatase Troponin T C-Reactive Protein Total Protein Albumin Triglycerides Cholesterol LDL Cholesterol Direct HDL Cholesterol Urine WBC (Auto) Urine Creatinine Urine Total Protein Vancomycin Trough Rheumatoid Factor Complement C4 Miscellaneous Test Crossmatch 10/06/16 10/06/16 10/06/16 05:23 11:52 18:34 WBC RBC Hgb Hct MCV MCH MCHC RDW Plt Count Lymph % (Auto) [place] % (Auto) Lymph # [place] # Baso # Seg Neutrophils % Seg Neuts % (Manual) Lymphocytes % (Manual) Monocytes % (Manual) Eosinophils % (Manual) Basophils % (Manual) Nucleated RBC % Seg Neutrophils # Seg Neutrophils # Man Lymphocytes # (Manual) Monocytes # (Manual) Eosinophils # (Manual) PT INR Fibrinogen dRVVT Confirm Interp Factor V Activity POC ABG pH POC ABG pCO2 POC ABG pO2 Sodium Potassium Chloride Carbon Dioxide BUN Creatinine Glucose POC Glucose 126 H 116 H 129 H Lactic Acid Calcium Phosphorus Magnesium Direct Bilirubin ALT Alkaline Phosphatase Troponin T C-Reactive Protein Total Protein Albumin Triglycerides Cholesterol LDL Cholesterol Direct HDL Cholesterol Urine WBC (Auto) Urine Creatinine Urine Total Protein Vancomycin Trough Rheumatoid Factor Complement C4 Miscellaneous Test Crossmatch 10/07/16 10/07/16 10/07/16 03:45 05:00 10:00 WBC 17.0 H RBC 2.68 L Hgb 7.3 L Hct 25.3 L MCV MCH 27 L MCHC 29 L RDW 19.6 H Plt Count 74 L Lymph % (Auto) [place] % (Auto) Lymph # [place] # Baso # Seg Neutrophils % Seg Neuts % (Manual) Lymphocytes % (Manual) 12.0 L Monocytes % (Manual) Eosinophils % (Manual) Basophils % (Manual) Nucleated RBC % 4.0 H Seg Neutrophils # Seg Neutrophils # Man 10.7 H Lymphocytes # (Manual) Monocytes # (Manual) Eosinophils # (Manual) PT INR Fibrinogen dRVVT Confirm Interp Factor V Activity POC ABG pH POC ABG pCO2 POC ABG pO2 Sodium 130 L Potassium 3.2 L Chloride 93.9 L Carbon Dioxide 20 L BUN 44 H Creatinine 2.7 H Glucose 129 H POC Glucose Lactic Acid Calcium 7.4 L Phosphorus Magnesium Direct Bilirubin ALT 6 L Alkaline Phosphatase 195 H Troponin T C-Reactive Protein Total Protein 4.9 L Albumin 1.0 L Triglycerides Cholesterol LDL Cholesterol Direct HDL Cholesterol Urine WBC (Auto) Urine Creatinine Urine Total Protein Vancomycin Trough Rheumatoid Factor Complement C4 Miscellaneous Test Flexitest 1 H Crossmatch 10/07/16 10/07/16 10/07/16 10:00 11:24 18:10 WBC RBC Hgb Hct MCV MCH MCHC RDW Plt Count Lymph % (Auto) [place] % (Auto) Lymph # [place] # Baso # Seg Neutrophils % Seg Neuts % (Manual) Lymphocytes % (Manual) Monocytes % (Manual) Eosinophils % (Manual) Basophils % (Manual) Nucleated RBC % Seg Neutrophils # Seg Neutrophils # Man Lymphocytes # (Manual) Monocytes # (Manual) Eosinophils # (Manual) PT INR Fibrinogen dRVVT Confirm Interp Factor V Activity POC ABG pH POC ABG pCO2 POC ABG pO2 Sodium Potassium Chloride Carbon Dioxide BUN Creatinine Glucose POC Glucose 116 H 130 H Lactic Acid Calcium Phosphorus Magnesium Direct Bilirubin ALT Alkaline Phosphatase Troponin T C-Reactive Protein 19.40 H Total Protein Albumin Triglycerides Cholesterol LDL Cholesterol Direct HDL Cholesterol Urine WBC (Auto) Urine Creatinine Urine Total Protein Vancomycin Trough Rheumatoid Factor Complement C4 Miscellaneous Test Crossmatch 10/07/16 10/08/16 10/08/16 18:30 00:00 04:00 WBC RBC Hgb Hct MCV MCH MCHC RDW Plt Count Lymph % (Auto) [place] % (Auto) Lymph # [place] # Baso # Seg Neutrophils % Seg Neuts % (Manual) Lymphocytes % (Manual) Monocytes % (Manual) Eosinophils % (Manual) Basophils % (Manual) Nucleated RBC % Seg Neutrophils # Seg Neutrophils # Man Lymphocytes # (Manual) Monocytes # (Manual) Eosinophils # (Manual) PT INR Fibrinogen dRVVT Confirm Interp Factor V Activity POC ABG pH POC ABG pCO2 POC ABG pO2 Sodium 132 L Potassium 3.3 L Chloride 93.6 L Carbon Dioxide 17 L BUN 59 H Creatinine 2.7 H Glucose 121 H POC Glucose 122 H Lactic Acid Calcium 7.6 L Phosphorus Magnesium Direct Bilirubin ALT Alkaline Phosphatase Troponin T C-Reactive Protein Total Protein Albumin Triglycerides Cholesterol LDL Cholesterol Direct HDL Cholesterol Urine WBC (Auto) > 182.0 H Urine Creatinine Urine Total Protein Vancomycin Trough Rheumatoid Factor Complement C4 Miscellaneous Test Crossmatch 10/08/16 10/08/16 10/08/16 04:30 05:30 11:51 WBC RBC 5.15 H Hgb 14.4 H D Hct 44.5 H D MCV MCH MCHC RDW 19.5 H Plt Count 56 L Lymph % (Auto) [place] % (Auto) Lymph # [place] # Baso # Seg Neutrophils % Seg Neuts % (Manual) 24.0 L Lymphocytes % (Manual) 8.0 L Monocytes % (Manual) Eosinophils % (Manual) Basophils % (Manual) Nucleated RBC % 9.0 H Seg Neutrophils # Seg Neutrophils # Man Lymphocytes # (Manual) 0.7 L Monocytes # (Manual) Eosinophils # (Manual) PT INR Fibrinogen dRVVT Confirm Interp Factor V Activity POC ABG pH POC ABG pCO2 POC ABG pO2 Sodium Potassium Chloride Carbon Dioxide BUN Creatinine Glucose POC Glucose 125 H 150 H Lactic Acid Calcium Phosphorus Magnesium Direct Bilirubin ALT Alkaline Phosphatase Troponin T C-Reactive Protein Total Protein Albumin Triglycerides Cholesterol LDL Cholesterol Direct HDL Cholesterol Urine WBC (Auto) Urine Creatinine Urine Total Protein Vancomycin Trough Rheumatoid Factor Complement C4 Miscellaneous Test Crossmatch 10/08/16 10/08/16 10/08/16 12:49 17:07 19:30 WBC RBC Hgb 7.1 L D Hct 22.4 L D MCV MCH MCHC RDW Plt Count Lymph % (Auto) [place] % (Auto) Lymph # [place] # Baso # Seg Neutrophils % Seg Neuts % (Manual) Lymphocytes % (Manual) Monocytes % (Manual) Eosinophils % (Manual) Basophils % (Manual) Nucleated RBC % Seg Neutrophils # Seg Neutrophils # Man Lymphocytes # (Manual) Monocytes # (Manual) Eosinophils # (Manual) PT INR Fibrinogen dRVVT Confirm Interp Factor V Activity POC ABG pH POC ABG pCO2 28.2 L POC ABG pO2 111 H Sodium Potassium Chloride Carbon Dioxide BUN Creatinine Glucose POC Glucose 145 H Lactic Acid Calcium Phosphorus Magnesium Direct Bilirubin ALT Alkaline Phosphatase Troponin T C-Reactive Protein Total Protein Albumin Triglycerides Cholesterol LDL Cholesterol Direct HDL Cholesterol Urine WBC (Auto) Urine Creatinine Urine Total Protein Vancomycin Trough Rheumatoid Factor Complement C4 Miscellaneous Test Crossmatch 10/08/16 10/09/16 10/09/16 19:30 03:45 03:45 WBC 12.6 H RBC 2.36 L Hgb 6.7 L Hct 21.1 L MCV MCH MCHC RDW 19.5 H Plt Count 75 L Lymph % (Auto) [place] % (Auto) Lymph # [place] # Baso # Seg Neutrophils % Seg Neuts % (Manual) Lymphocytes % (Manual) Monocytes % (Manual) 10.0 H Eosinophils % (Manual) Basophils % (Manual) Nucleated RBC % 3.0 H Seg Neutrophils # Seg Neutrophils # Man Lymphocytes # (Manual) Monocytes # (Manual) 1.3 H Eosinophils # (Manual) PT 18.0 H INR 1.41 H Fibrinogen dRVVT Confirm Interp Factor V Activity POC ABG pH POC ABG pCO2 POC ABG pO2 Sodium 135 L Potassium Chloride Carbon Dioxide 17 L BUN 81 H Creatinine 3.2 H Glucose 109 H POC Glucose Lactic Acid Calcium 7.4 L Phosphorus 4.60 H D Magnesium Direct Bilirubin ALT Alkaline Phosphatase Troponin T C-Reactive Protein Total Protein Albumin Triglycerides Cholesterol LDL Cholesterol Direct HDL Cholesterol Urine WBC (Auto) Urine Creatinine Urine Total Protein Vancomycin Trough Rheumatoid Factor Complement C4 Miscellaneous Test Crossmatch 10/09/16 10/09/16 10/09/16 03:45 05:14 07:20 WBC RBC Hgb Hct MCV MCH MCHC RDW Plt Count Lymph % (Auto) [place] % (Auto) Lymph # [place] # Baso # Seg Neutrophils % Seg Neuts % (Manual) Lymphocytes % (Manual) Monocytes % (Manual) Eosinophils % (Manual) Basophils % (Manual) Nucleated RBC % Seg Neutrophils # Seg Neutrophils # Man Lymphocytes # (Manual) Monocytes # (Manual) Eosinophils # (Manual) PT 19.0 H INR 1.51 H Fibrinogen dRVVT Confirm Interp Factor V Activity POC ABG pH POC ABG pCO2 POC ABG pO2 Sodium Potassium Chloride Carbon Dioxide BUN Creatinine Glucose POC Glucose 151 H Lactic Acid Calcium Phosphorus Magnesium Direct Bilirubin ALT Alkaline Phosphatase Troponin T C-Reactive Protein Total Protein Albumin Triglycerides Cholesterol LDL Cholesterol Direct HDL Cholesterol Urine WBC (Auto) Urine Creatinine Urine Total Protein Vancomycin Trough Rheumatoid Factor Complement C4 Miscellaneous Test Crossmatch See Detail 10/09/16 10/09/16 10/09/16 11:46 16:20 16:43 WBC RBC Hgb 7.2 L Hct 22.2 L MCV MCH MCHC RDW Plt Count Lymph % (Auto) [place] % (Auto) Lymph # [place] # Baso # Seg Neutrophils % Seg Neuts % (Manual) Lymphocytes % (Manual) Monocytes % (Manual) Eosinophils % (Manual) Basophils % (Manual) Nucleated RBC % Seg Neutrophils # Seg Neutrophils # Man Lymphocytes # (Manual) Monocytes # (Manual) Eosinophils # (Manual) PT INR Fibrinogen dRVVT Confirm Interp Factor V Activity POC ABG pH POC ABG pCO2 POC ABG pO2 Sodium Potassium Chloride Carbon Dioxide BUN Creatinine Glucose POC Glucose 133 H 141 H Lactic Acid Calcium Phosphorus Magnesium Direct Bilirubin ALT Alkaline Phosphatase Troponin T C-Reactive Protein Total Protein Albumin Triglycerides Cholesterol LDL Cholesterol Direct HDL Cholesterol Urine WBC (Auto) Urine Creatinine Urine Total Protein Vancomycin Trough Rheumatoid Factor Complement C4 Miscellaneous Test Crossmatch 10/10/16 10/10/16 10/10/16 05:00 05:00 11:19 WBC 18.5 H RBC 2.19 L Hgb 6.4 L Hct 19.6 L* MCV MCH MCHC RDW 19.3 H Plt Count 93 L Lymph % (Auto) [place] % (Auto) Lymph # [place] # Baso # Seg Neutrophils % Seg Neuts % (Manual) Lymphocytes % (Manual) 10.0 L Monocytes % (Manual) Eosinophils % (Manual) Basophils % (Manual) Nucleated RBC % 4.0 H Seg Neutrophils # Seg Neutrophils # Man 11.3 H Lymphocytes # (Manual) Monocytes # (Manual) Eosinophils # (Manual) PT INR Fibrinogen dRVVT Confirm Interp Factor V Activity POC ABG pH POC ABG pCO2 POC ABG pO2 Sodium Potassium 5.7 H D Chloride Carbon Dioxide 16 L BUN 94 H Creatinine 3.1 H Glucose 131 H POC Glucose 153 H Lactic Acid Calcium 8.2 L Phosphorus 5.10 H Magnesium 2.40 H Direct Bilirubin 0.3 H ALT < 5 L Alkaline Phosphatase 319 H Troponin T C-Reactive Protein Total Protein 5.1 L Albumin 1.0 L Triglycerides Cholesterol LDL Cholesterol Direct HDL Cholesterol Urine WBC (Auto) Urine Creatinine Urine Total Protein Vancomycin Trough Rheumatoid Factor Complement C4 Miscellaneous Test Crossmatch 10/10/16 10/10/16 10/11/16 17:50 23:30 04:15 WBC RBC Hgb Hct MCV MCH MCHC RDW Plt Count Lymph % (Auto) [place] % (Auto) Lymph # [place] # Baso # Seg Neutrophils % Seg Neuts % (Manual) Lymphocytes % (Manual) Monocytes % (Manual) Eosinophils % (Manual) Basophils % (Manual) Nucleated RBC % Seg Neutrophils # Seg Neutrophils # Man Lymphocytes # (Manual) Monocytes # (Manual) Eosinophils # (Manual) PT INR Fibrinogen dRVVT Confirm Interp Factor V Activity POC ABG pH POC ABG pCO2 POC ABG pO2 Sodium Potassium Chloride 96.4 L Carbon Dioxide 21 L BUN 57 H Creatinine 2.1 H Glucose 151 H POC Glucose 146 H 141 H Lactic Acid Calcium 8.3 L Phosphorus Magnesium Direct Bilirubin ALT Alkaline Phosphatase Troponin T C-Reactive Protein Total Protein Albumin Triglycerides Cholesterol LDL Cholesterol Direct HDL Cholesterol Urine WBC (Auto) Urine Creatinine Urine Total Protein Vancomycin Trough Rheumatoid Factor Complement C4 Miscellaneous Test Crossmatch 10/11/16 10/11/16 10/11/16 04:15 04:15 05:30 WBC 28.3 H RBC 3.12 L Hgb 9.3 L Hct 28.7 L D MCV MCH MCHC RDW 17.7 H Plt Count 128 L Lymph % (Auto) [place] % (Auto) Lymph # [place] # Baso # Seg Neutrophils % Seg Neuts % (Manual) Lymphocytes % (Manual) Monocytes % (Manual) Eosinophils % (Manual) Basophils % (Manual) Nucleated RBC % Seg Neutrophils # Seg Neutrophils # Man Lymphocytes # (Manual) Monocytes # (Manual) Eosinophils # (Manual) PT INR Fibrinogen dRVVT Confirm Interp Factor V Activity POC ABG pH POC ABG pCO2 POC ABG pO2 Sodium Potassium Chloride Carbon Dioxide BUN Creatinine Glucose POC Glucose 167 H Lactic Acid Calcium Phosphorus Magnesium Direct Bilirubin ALT Alkaline Phosphatase Troponin T C-Reactive Protein 15.80 H Total Protein Albumin Triglycerides Cholesterol LDL Cholesterol Direct HDL Cholesterol Urine WBC (Auto) Urine Creatinine Urine Total Protein Vancomycin Trough Rheumatoid Factor Complement C4 Miscellaneous Test Crossmatch 10/11/16 10/11/16 10/11/16 11:40 15:49 23:57 WBC RBC Hgb Hct MCV MCH MCHC RDW Plt Count Lymph % (Auto) [place] % (Auto) Lymph # [place] # Baso # Seg Neutrophils % Seg Neuts % (Manual) Lymphocytes % (Manual) Monocytes % (Manual) Eosinophils % (Manual) Basophils % (Manual) Nucleated RBC % Seg Neutrophils # Seg Neutrophils # Man Lymphocytes # (Manual) Monocytes # (Manual) Eosinophils # (Manual) PT INR Fibrinogen dRVVT Confirm Interp Factor V Activity POC ABG pH POC ABG pCO2 POC ABG pO2 Sodium Potassium Chloride Carbon Dioxide BUN Creatinine Glucose POC Glucose 139 H 168 H 161 H Lactic Acid Calcium Phosphorus Magnesium Direct Bilirubin ALT Alkaline Phosphatase Troponin T C-Reactive Protein Total Protein Albumin Triglycerides Cholesterol LDL Cholesterol Direct HDL Cholesterol Urine WBC (Auto) Urine Creatinine Urine Total Protein Vancomycin Trough Rheumatoid Factor Complement C4 Miscellaneous Test Crossmatch 10/12/16 10/12/16 10/12/16 04:40 04:40 05:44 WBC 22.5 H RBC 2.88 L Hgb 8.8 L Hct 26.8 L MCV MCH MCHC RDW 17.8 H Plt Count Lymph % (Auto) [place] % (Auto) Lymph # [place] # Baso # Seg Neutrophils % Seg Neuts % (Manual) Lymphocytes % (Manual) Monocytes % (Manual) Eosinophils % (Manual) Basophils % (Manual) Nucleated RBC % Seg Neutrophils # Seg Neutrophils # Man Lymphocytes # (Manual) Monocytes # (Manual) Eosinophils # (Manual) PT INR Fibrinogen dRVVT Confirm Interp Factor V Activity POC ABG pH POC ABG pCO2 POC ABG pO2 Sodium 134 L Potassium Chloride 93.0 L Carbon Dioxide BUN 74 H Creatinine 2.5 H Glucose 137 H POC Glucose 158 H Lactic Acid Calcium 8.2 L Phosphorus Magnesium Direct Bilirubin ALT Alkaline Phosphatase Troponin T C-Reactive Protein Total Protein Albumin Triglycerides Cholesterol LDL Cholesterol Direct HDL Cholesterol Urine WBC (Auto) Urine Creatinine Urine Total Protein Vancomycin Trough Rheumatoid Factor Complement C4 Miscellaneous Test Crossmatch 10/12/16 10/12/16 10/12/16 12:27 18:18 23:46 WBC RBC Hgb Hct MCV MCH MCHC RDW Plt Count Lymph % (Auto) [place] % (Auto) Lymph # [place] # Baso # Seg Neutrophils % Seg Neuts % (Manual) Lymphocytes % (Manual) Monocytes % (Manual) Eosinophils % (Manual) Basophils % (Manual) Nucleated RBC % Seg Neutrophils # Seg Neutrophils # Man Lymphocytes # (Manual) Monocytes # (Manual) Eosinophils # (Manual) PT INR Fibrinogen dRVVT Confirm Interp Factor V Activity POC ABG pH POC ABG pCO2 POC ABG pO2 Sodium Potassium Chloride Carbon Dioxide BUN Creatinine Glucose POC Glucose 153 H 140 H 150 H Lactic Acid Calcium Phosphorus Magnesium Direct Bilirubin ALT Alkaline Phosphatase Troponin T C-Reactive Protein Total Protein Albumin Triglycerides Cholesterol LDL Cholesterol Direct HDL Cholesterol Urine WBC (Auto) Urine Creatinine Urine Total Protein Vancomycin Trough Rheumatoid Factor Complement C4 Miscellaneous Test Crossmatch 10/13/16 10/13/16 10/13/16 06:22 09:20 12:29 WBC RBC Hgb Hct MCV MCH MCHC RDW Plt Count Lymph % (Auto) [place] % (Auto) Lymph # [place] # Baso # Seg Neutrophils % Seg Neuts % (Manual) Lymphocytes % (Manual) Monocytes % (Manual) Eosinophils % (Manual) Basophils % (Manual) Nucleated RBC % Seg Neutrophils # Seg Neutrophils # Man Lymphocytes # (Manual) Monocytes # (Manual) Eosinophils # (Manual) PT INR Fibrinogen dRVVT Confirm Interp Factor V Activity POC ABG pH POC ABG pCO2 POC ABG pO2 Sodium Potassium Chloride Carbon Dioxide BUN Creatinine Glucose POC Glucose 165 H 193 H Lactic Acid Calcium Phosphorus Magnesium Direct Bilirubin ALT Alkaline Phosphatase Troponin T C-Reactive Protein Total Protein Albumin Triglycerides Cholesterol LDL Cholesterol Direct HDL Cholesterol Urine WBC (Auto) Urine Creatinine Urine Total Protein Vancomycin Trough Rheumatoid Factor Complement C4 Miscellaneous Test Flexitest 1 H Crossmatch 10/13/16 10/13/16 10/13/16 18:09 Unknown Unknown WBC 23.4 H RBC 2.83 L Hgb 8.7 L Hct 26.1 L MCV MCH MCHC RDW 18.1 H Plt Count Lymph % (Auto) [place] % (Auto) Lymph # [place] # Baso # Seg Neutrophils % Seg Neuts % (Manual) Lymphocytes % (Manual) Monocytes % (Manual) Eosinophils % (Manual) Basophils % (Manual) Nucleated RBC % Seg Neutrophils # Seg Neutrophils # Man Lymphocytes # (Manual) Monocytes # (Manual) Eosinophils # (Manual) PT INR Fibrinogen dRVVT Confirm Interp Factor V Activity POC ABG pH POC ABG pCO2 POC ABG pO2 Sodium Potassium Chloride 95.8 L Carbon Dioxide BUN 82 H Creatinine 2.6 H Glucose 152 H POC Glucose 166 H Lactic Acid Calcium Phosphorus Magnesium Direct Bilirubin ALT Alkaline Phosphatase Troponin T C-Reactive Protein Total Protein Albumin Triglycerides Cholesterol LDL Cholesterol Direct HDL Cholesterol Urine WBC (Auto) Urine Creatinine Urine Total Protein Vancomycin Trough Rheumatoid Factor Complement C4 Miscellaneous Test Crossmatch 10/14/16 10/14/16 10/14/16 05:38 06:35 08:10 WBC 20.7 H RBC 2.81 L Hgb 8.4 L Hct 27.2 L MCV MCH MCHC RDW 19.4 H Plt Count Lymph % (Auto) [place] % (Auto) Lymph # [place] # Baso # Seg Neutrophils % Seg Neuts % (Manual) Lymphocytes % (Manual) Monocytes % (Manual) Eosinophils % (Manual) Basophils % (Manual) Nucleated RBC % Seg Neutrophils # Seg Neutrophils # Man Lymphocytes # (Manual) Monocytes # (Manual) Eosinophils # (Manual) PT INR Fibrinogen dRVVT Confirm Interp Factor V Activity POC ABG pH POC ABG pCO2 POC ABG pO2 Sodium Potassium Chloride Carbon Dioxide BUN 58 H Creatinine 1.9 H Glucose 169 H POC Glucose 195 H Lactic Acid Calcium Phosphorus Magnesium Direct Bilirubin ALT Alkaline Phosphatase Troponin T C-Reactive Protein Total Protein Albumin Triglycerides Cholesterol LDL Cholesterol Direct HDL Cholesterol Urine WBC (Auto) Urine Creatinine Urine Total Protein Vancomycin Trough Rheumatoid Factor Complement C4 Miscellaneous Test Crossmatch 10/14/16 10/14/16 10/14/16 11:44 17:13 23:28 WBC RBC Hgb Hct MCV MCH MCHC RDW Plt Count Lymph % (Auto) [place] % (Auto) Lymph # [place] # Baso # Seg Neutrophils % Seg Neuts % (Manual) Lymphocytes % (Manual) Monocytes % (Manual) Eosinophils % (Manual) Basophils % (Manual) Nucleated RBC % Seg Neutrophils # Seg Neutrophils # Man Lymphocytes # (Manual) Monocytes # (Manual) Eosinophils # (Manual) PT INR Fibrinogen dRVVT Confirm Interp Factor V Activity POC ABG pH POC ABG pCO2 POC ABG pO2 Sodium Potassium Chloride Carbon Dioxide BUN Creatinine Glucose POC Glucose 174 H 121 H 151 H Lactic Acid Calcium Phosphorus Magnesium Direct Bilirubin ALT Alkaline Phosphatase Troponin T C-Reactive Protein Total Protein Albumin Triglycerides Cholesterol LDL Cholesterol Direct HDL Cholesterol Urine WBC (Auto) Urine Creatinine Urine Total Protein Vancomycin Trough Rheumatoid Factor Complement C4 Miscellaneous Test Crossmatch 10/15/16 10/15/16 10/15/16 05:06 12:26 17:48 WBC RBC Hgb Hct MCV MCH MCHC RDW Plt Count Lymph % (Auto) [place] % (Auto) Lymph # [place] # Baso # Seg Neutrophils % Seg Neuts % (Manual) Lymphocytes % (Manual) Monocytes % (Manual) Eosinophils % (Manual) Basophils % (Manual) Nucleated RBC % Seg Neutrophils # Seg Neutrophils # Man Lymphocytes # (Manual) Monocytes # (Manual) Eosinophils # (Manual) PT INR Fibrinogen dRVVT Confirm Interp Factor V Activity POC ABG pH POC ABG pCO2 POC ABG pO2 Sodium Potassium Chloride Carbon Dioxide BUN Creatinine Glucose POC Glucose 151 H 149 H 153 H Lactic Acid Calcium Phosphorus Magnesium Direct Bilirubin ALT Alkaline Phosphatase Troponin T C-Reactive Protein Total Protein Albumin Triglycerides Cholesterol LDL Cholesterol Direct HDL Cholesterol Urine WBC (Auto) Urine Creatinine Urine Total Protein Vancomycin Trough Rheumatoid Factor Complement C4 Miscellaneous Test Crossmatch 10/15/16 10/15/16 10/16/16 Unknown Unknown 00:02 WBC 23.4 H RBC 2.78 L Hgb 8.5 L Hct 25.7 L MCV MCH MCHC RDW 18.7 H Plt Count Lymph % (Auto) [place] % (Auto) Lymph # [place] # Baso # Seg Neutrophils % Seg Neuts % (Manual) Lymphocytes % (Manual) Monocytes % (Manual) Eosinophils % (Manual) Basophils % (Manual) Nucleated RBC % Seg Neutrophils # Seg Neutrophils # Man Lymphocytes # (Manual) Monocytes # (Manual) Eosinophils # (Manual) PT INR Fibrinogen dRVVT Confirm Interp Factor V Activity POC ABG pH POC ABG pCO2 POC ABG pO2 Sodium Potassium Chloride Carbon Dioxide BUN 73 H Creatinine 2.3 H Glucose 120 H POC Glucose 137 H Lactic Acid Calcium Phosphorus Magnesium Direct Bilirubin ALT Alkaline Phosphatase Troponin T C-Reactive Protein Total Protein Albumin Triglycerides Cholesterol LDL Cholesterol Direct HDL Cholesterol Urine WBC (Auto) Urine Creatinine Urine Total Protein Vancomycin Trough Rheumatoid Factor Complement C4 Miscellaneous Test Crossmatch 10/16/16 10/16/16 10/16/16 05:44 06:25 06:25 WBC 22.5 H RBC 2.76 L Hgb 8.3 L Hct 25.2 L MCV MCH MCHC RDW 18.3 H Plt Count Lymph % (Auto) [place] % (Auto) Lymph # [place] # Baso # Seg Neutrophils % Seg Neuts % (Manual) Lymphocytes % (Manual) Monocytes % (Manual) Eosinophils % (Manual) Basophils % (Manual) Nucleated RBC % Seg Neutrophils # Seg Neutrophils # Man Lymphocytes # (Manual) Monocytes # (Manual) Eosinophils # (Manual) PT INR Fibrinogen dRVVT Confirm Interp Factor V Activity POC ABG pH POC ABG pCO2 POC ABG pO2 Sodium Potassium Chloride Carbon Dioxide BUN 92 H Creatinine 3.0 H Glucose 138 H POC Glucose 110 H Lactic Acid Calcium Phosphorus Magnesium Direct Bilirubin ALT Alkaline Phosphatase Troponin T C-Reactive Protein Total Protein Albumin Triglycerides Cholesterol LDL Cholesterol Direct HDL Cholesterol Urine WBC (Auto) Urine Creatinine Urine Total Protein Vancomycin Trough Rheumatoid Factor Complement C4 Miscellaneous Test Crossmatch 10/16/16 10/16/16 10/16/16 11:27 11:48 17:36 WBC RBC Hgb Hct MCV MCH MCHC RDW Plt Count Lymph % (Auto) [place] % (Auto) Lymph # [place] # Baso # Seg Neutrophils % Seg Neuts % (Manual) Lymphocytes % (Manual) Monocytes % (Manual) Eosinophils % (Manual) Basophils % (Manual) Nucleated RBC % Seg Neutrophils # Seg Neutrophils # Man Lymphocytes # (Manual) Monocytes # (Manual) Eosinophils # (Manual) PT INR Fibrinogen dRVVT Confirm Interp Factor V Activity POC ABG pH 7.582 H POC ABG pCO2 27.4 L POC ABG pO2 110 H Sodium Potassium Chloride Carbon Dioxide BUN Creatinine Glucose POC Glucose 121 H 133 H Lactic Acid Calcium Phosphorus Magnesium Direct Bilirubin ALT Alkaline Phosphatase Troponin T C-Reactive Protein Total Protein Albumin Triglycerides Cholesterol LDL Cholesterol Direct HDL Cholesterol Urine WBC (Auto) Urine Creatinine Urine Total Protein Vancomycin Trough Rheumatoid Factor Complement C4 Miscellaneous Test Crossmatch 10/16/16 10/17/16 10/17/16 20:48 04:24 04:24 WBC 21.4 H RBC 2.72 L Hgb 8.0 L Hct 25.2 L MCV MCH MCHC RDW 18.0 H Plt Count Lymph % (Auto) [place] % (Auto) Lymph # [place] # Baso # Seg Neutrophils % Seg Neuts % (Manual) Lymphocytes % (Manual) Monocytes % (Manual) Eosinophils % (Manual) Basophils % (Manual) Nucleated RBC % Seg Neutrophils # Seg Neutrophils # Man Lymphocytes # (Manual) Monocytes # (Manual) Eosinophils # (Manual) PT INR Fibrinogen dRVVT Confirm Interp Factor V Activity POC ABG pH 7.561 H POC ABG pCO2 24.4 L POC ABG pO2 77 L Sodium 148 H Potassium Chloride Carbon Dioxide BUN 104 H Creatinine 3.0 H Glucose 149 H POC Glucose Lactic Acid Calcium Phosphorus Magnesium Direct Bilirubin ALT Alkaline Phosphatase 138 H Troponin T C-Reactive Protein Total Protein 6.2 L Albumin 1.5 L Triglycerides Cholesterol LDL Cholesterol Direct HDL Cholesterol Urine WBC (Auto) Urine Creatinine Urine Total Protein Vancomycin Trough Rheumatoid Factor Complement C4 Miscellaneous Test Crossmatch 10/17/16 10/17/16 10/17/16 06:02 12:17 17:14 WBC RBC Hgb Hct MCV MCH MCHC RDW Plt Count Lymph % (Auto) [place] % (Auto) Lymph # [place] # Baso # Seg Neutrophils % Seg Neuts % (Manual) Lymphocytes % (Manual) Monocytes % (Manual) Eosinophils % (Manual) Basophils % (Manual) Nucleated RBC % Seg Neutrophils # Seg Neutrophils # Man Lymphocytes # (Manual) Monocytes # (Manual) Eosinophils # (Manual) PT INR Fibrinogen dRVVT Confirm Interp Factor V Activity POC ABG pH POC ABG pCO2 POC ABG pO2 Sodium Potassium Chloride Carbon Dioxide BUN Creatinine Glucose POC Glucose 170 H 167 H 126 H Lactic Acid Calcium Phosphorus Magnesium Direct Bilirubin ALT Alkaline Phosphatase Troponin T C-Reactive Protein Total Protein Albumin Triglycerides Cholesterol LDL Cholesterol Direct HDL Cholesterol Urine WBC (Auto) Urine Creatinine Urine Total Protein Vancomycin Trough Rheumatoid Factor Complement C4 Miscellaneous Test Crossmatch 10/17/16 10/18/16 10/18/16 23:17 04:00 04:00 WBC 20.7 H RBC 2.47 L Hgb 7.4 L Hct 22.9 L MCV MCH MCHC RDW 17.5 H Plt Count Lymph % (Auto) [place] % (Auto) Lymph # [place] # Baso # Seg Neutrophils % Seg Neuts % (Manual) Lymphocytes % (Manual) Monocytes % (Manual) Eosinophils % (Manual) Basophils % (Manual) Nucleated RBC % Seg Neutrophils # Seg Neutrophils # Man Lymphocytes # (Manual) Monocytes # (Manual) Eosinophils # (Manual) PT INR Fibrinogen dRVVT Confirm Interp Factor V Activity POC ABG pH POC ABG pCO2 POC ABG pO2 Sodium 149 H Potassium Chloride 107.9 H Carbon Dioxide 20 L BUN 117 H Creatinine 3.2 H Glucose 119 H POC Glucose 121 H Lactic Acid Calcium Phosphorus Magnesium Direct Bilirubin ALT Alkaline Phosphatase Troponin T C-Reactive Protein Total Protein Albumin Triglycerides Cholesterol LDL Cholesterol Direct HDL Cholesterol Urine WBC (Auto) Urine Creatinine Urine Total Protein Vancomycin Trough Rheumatoid Factor Complement C4 Miscellaneous Test Crossmatch 10/18/16 10/18/16 10/18/16 05:23 10:46 17:30 WBC RBC Hgb Hct MCV MCH MCHC RDW Plt Count Lymph % (Auto) [place] % (Auto) Lymph # [place] # Baso # Seg Neutrophils % Seg Neuts % (Manual) Lymphocytes % (Manual) Monocytes % (Manual) Eosinophils % (Manual) Basophils % (Manual) Nucleated RBC % Seg Neutrophils # Seg Neutrophils # Man Lymphocytes # (Manual) Monocytes # (Manual) Eosinophils # (Manual) PT INR Fibrinogen dRVVT Confirm Interp Factor V Activity POC ABG pH POC ABG pCO2 POC ABG pO2 Sodium Potassium Chloride Carbon Dioxide BUN Creatinine Glucose POC Glucose 119 H 155 H 124 H Lactic Acid Calcium Phosphorus Magnesium Direct Bilirubin ALT Alkaline Phosphatase Troponin T C-Reactive Protein Total Protein Albumin Triglycerides Cholesterol LDL Cholesterol Direct HDL Cholesterol Urine WBC (Auto) Urine Creatinine Urine Total Protein Vancomycin Trough Rheumatoid Factor Complement C4 Miscellaneous Test Crossmatch 10/19/16 10/19/16 10/19/16 04:00 04:00 05:25 WBC 17.4 H RBC 2.54 L Hgb 7.7 L Hct 23.6 L MCV MCH MCHC RDW 17.3 H Plt Count Lymph % (Auto) [place] % (Auto) Lymph # [place] # Baso # Seg Neutrophils % Seg Neuts % (Manual) Lymphocytes % (Manual) Monocytes % (Manual) Eosinophils % (Manual) Basophils % (Manual) Nucleated RBC % Seg Neutrophils # Seg Neutrophils # Man Lymphocytes # (Manual) Monocytes # (Manual) Eosinophils # (Manual) PT INR Fibrinogen dRVVT Confirm Interp Factor V Activity POC ABG pH POC ABG pCO2 POC ABG pO2 Sodium Potassium Chloride Carbon Dioxide BUN 72 H Creatinine 2.1 H Glucose 116 H POC Glucose 119 H Lactic Acid Calcium Phosphorus Magnesium Direct Bilirubin ALT Alkaline Phosphatase Troponin T C-Reactive Protein Total Protein Albumin Triglycerides Cholesterol LDL Cholesterol Direct HDL Cholesterol Urine WBC (Auto) Urine Creatinine Urine Total Protein Vancomycin Trough Rheumatoid Factor Complement C4 Miscellaneous Test Crossmatch 10/19/16 10/19/16 10/20/16 11:46 23:59 06:00 WBC RBC Hgb Hct MCV MCH MCHC RDW Plt Count Lymph % (Auto) [place] % (Auto) Lymph # [place] # Baso # Seg Neutrophils % Seg Neuts % (Manual) Lymphocytes % (Manual) Monocytes % (Manual) Eosinophils % (Manual) Basophils % (Manual) Nucleated RBC % Seg Neutrophils # Seg Neutrophils # Man Lymphocytes # (Manual) Monocytes # (Manual) Eosinophils # (Manual) PT INR Fibrinogen dRVVT Confirm Interp Factor V Activity POC ABG pH POC ABG pCO2 POC ABG pO2 Sodium Potassium Chloride Carbon Dioxide 17 L BUN 94 H Creatinine 2.7 H Glucose POC Glucose 116 H 117 H Lactic Acid Calcium Phosphorus Magnesium Direct Bilirubin ALT Alkaline Phosphatase Troponin T C-Reactive Protein Total Protein Albumin Triglycerides Cholesterol LDL Cholesterol Direct HDL Cholesterol Urine WBC (Auto) Urine Creatinine Urine Total Protein Vancomycin Trough Rheumatoid Factor Complement C4 Miscellaneous Test Crossmatch 10/20/16 10/20/16 10/20/16 06:00 11:49 16:00 WBC 19.7 H RBC 2.51 L Hgb 7.7 L Hct 23.5 L MCV MCH MCHC RDW 17.5 H Plt Count Lymph % (Auto) [place] % (Auto) Lymph # [place] # Baso # Seg Neutrophils % Seg Neuts % (Manual) Lymphocytes % (Manual) Monocytes % (Manual) Eosinophils % (Manual) Basophils % (Manual) Nucleated RBC % Seg Neutrophils # Seg Neutrophils # Man Lymphocytes # (Manual) Monocytes # (Manual) Eosinophils # (Manual) PT INR Fibrinogen dRVVT Confirm Interp Factor V Activity POC ABG pH POC ABG pCO2 POC ABG pO2 Sodium Potassium Chloride Carbon Dioxide BUN Creatinine Glucose POC Glucose 117 H Lactic Acid Calcium Phosphorus Magnesium Direct Bilirubin ALT Alkaline Phosphatase Troponin T C-Reactive Protein Total Protein Albumin Triglycerides Cholesterol LDL Cholesterol Direct HDL Cholesterol Urine WBC (Auto) Urine Creatinine Urine Total Protein Vancomycin Trough Rheumatoid Factor Complement C4 Miscellaneous Test Flexitest 1 H Crossmatch 10/20/16 10/20/16 10/21/16 18:36 23:39 04:00 WBC RBC Hgb Hct MCV MCH MCHC RDW Plt Count Lymph % (Auto) [place] % (Auto) Lymph # [place] # Baso # Seg Neutrophils % Seg Neuts % (Manual) Lymphocytes % (Manual) Monocytes % (Manual) Eosinophils % (Manual) Basophils % (Manual) Nucleated RBC % Seg Neutrophils # Seg Neutrophils # Man Lymphocytes # (Manual) Monocytes # (Manual) Eosinophils # (Manual) PT INR Fibrinogen dRVVT Confirm Interp Factor V Activity POC ABG pH POC ABG pCO2 POC ABG pO2 Sodium Potassium 5.4 H D Chloride Carbon Dioxide 15 L BUN 110 H Creatinine 3.0 H Glucose POC Glucose 127 H 114 H Lactic Acid Calcium Phosphorus Magnesium Direct Bilirubin ALT Alkaline Phosphatase Troponin T C-Reactive Protein Total Protein Albumin Triglycerides Cholesterol LDL Cholesterol Direct HDL Cholesterol Urine WBC (Auto) Urine Creatinine Urine Total Protein Vancomycin Trough Rheumatoid Factor Complement C4 Miscellaneous Test Crossmatch 10/21/16 10/21/16 10/22/16 05:54 23:46 05:18 WBC RBC Hgb Hct MCV MCH MCHC RDW Plt Count Lymph % (Auto) [place] % (Auto) Lymph # [place] # Baso # Seg Neutrophils % Seg Neuts % (Manual) Lymphocytes % (Manual) Monocytes % (Manual) Eosinophils % (Manual) Basophils % (Manual) Nucleated RBC % Seg Neutrophils # Seg Neutrophils # Man Lymphocytes # (Manual) Monocytes # (Manual) Eosinophils # (Manual) PT INR Fibrinogen dRVVT Confirm Interp Factor V Activity POC ABG pH POC ABG pCO2 POC ABG pO2 Sodium Potassium Chloride Carbon Dioxide BUN Creatinine Glucose POC Glucose 119 H 108 H 109 H Lactic Acid Calcium Phosphorus Magnesium Direct Bilirubin ALT Alkaline Phosphatase Troponin T C-Reactive Protein Total Protein Albumin Triglycerides Cholesterol LDL Cholesterol Direct HDL Cholesterol Urine WBC (Auto) Urine Creatinine Urine Total Protein Vancomycin Trough Rheumatoid Factor Complement C4 Miscellaneous Test Crossmatch 10/22/16 10/22/16 10/22/16 06:40 06:40 06:40 WBC 14.0 H RBC 2.03 L Hgb 7.0 L Hct 20.5 L MCV 98 H MCH 34 H MCHC 35 H RDW 17.8 H Plt Count Lymph % (Auto) [place] % (Auto) 9.9 H Lymph # [place] # 1.4 H Baso # 0.2 H Seg Neutrophils % 72.0 H Seg Neuts % (Manual) Lymphocytes % (Manual) Monocytes % (Manual) Eosinophils % (Manual) Basophils % (Manual) Nucleated RBC % Seg Neutrophils # 10.0 H Seg Neutrophils # Man Lymphocytes # (Manual) Monocytes # (Manual) Eosinophils # (Manual) PT INR Fibrinogen dRVVT Confirm Interp Factor V Activity POC ABG pH POC ABG pCO2 POC ABG pO2 Sodium 130 L D Potassium Chloride 92.4 L Carbon Dioxide 20 L BUN 50 H Creatinine 1.6 H Glucose 589 H* POC Glucose Lactic Acid Calcium 7.8 L D Phosphorus Magnesium 1.60 L Direct Bilirubin ALT Alkaline Phosphatase Troponin T C-Reactive Protein Total Protein Albumin Triglycerides Cholesterol LDL Cholesterol Direct HDL Cholesterol Urine WBC (Auto) Urine Creatinine Urine Total Protein Vancomycin Trough Rheumatoid Factor Complement C4 Miscellaneous Test Crossmatch 10/22/16 10/22/16 10/22/16 11:39 16:44 23:36 WBC RBC Hgb Hct MCV MCH MCHC RDW Plt Count Lymph % (Auto) [place] % (Auto) Lymph # [place] # Baso # Seg Neutrophils % Seg Neuts % (Manual) Lymphocytes % (Manual) Monocytes % (Manual) Eosinophils % (Manual) Basophils % (Manual) Nucleated RBC % Seg Neutrophils # Seg Neutrophils # Man Lymphocytes # (Manual) Monocytes # (Manual) Eosinophils # (Manual) PT INR Fibrinogen dRVVT Confirm Interp Factor V Activity POC ABG pH POC ABG pCO2 POC ABG pO2 Sodium Potassium Chloride Carbon Dioxide BUN Creatinine Glucose POC Glucose 142 H 163 H 123 H Lactic Acid Calcium Phosphorus Magnesium Direct Bilirubin ALT Alkaline Phosphatase Troponin T C-Reactive Protein Total Protein Albumin Triglycerides Cholesterol LDL Cholesterol Direct HDL Cholesterol Urine WBC (Auto) Urine Creatinine Urine Total Protein Vancomycin Trough Rheumatoid Factor Complement C4 Miscellaneous Test Crossmatch 10/23/16 10/23/16 10/23/16 04:58 06:00 12:12 WBC RBC Hgb Hct MCV MCH MCHC RDW Plt Count Lymph % (Auto) [place] % (Auto) Lymph # [place] # Baso # Seg Neutrophils % Seg Neuts % (Manual) Lymphocytes % (Manual) Monocytes % (Manual) Eosinophils % (Manual) Basophils % (Manual) Nucleated RBC % Seg Neutrophils # Seg Neutrophils # Man Lymphocytes # (Manual) Monocytes # (Manual) Eosinophils # (Manual) PT INR Fibrinogen dRVVT Confirm Interp Factor V Activity POC ABG pH POC ABG pCO2 POC ABG pO2 Sodium 133 L Potassium 3.5 L Chloride 96.1 L Carbon Dioxide 18 L BUN 76 H Creatinine 2.1 H Glucose POC Glucose 133 H 138 H Lactic Acid Calcium 8.3 L Phosphorus Magnesium Direct Bilirubin ALT Alkaline Phosphatase Troponin T C-Reactive Protein Total Protein Albumin Triglycerides Cholesterol LDL Cholesterol Direct HDL Cholesterol Urine WBC (Auto) Urine Creatinine Urine Total Protein Vancomycin Trough Rheumatoid Factor Complement C4 Miscellaneous Test Crossmatch 10/23/16 10/23/16 10/24/16 16:53 23:37 04:00 WBC RBC Hgb Hct MCV MCH MCHC RDW Plt Count Lymph % (Auto) [place] % (Auto) Lymph # [place] # Baso # Seg Neutrophils % Seg Neuts % (Manual) Lymphocytes % (Manual) Monocytes % (Manual) Eosinophils % (Manual) Basophils % (Manual) Nucleated RBC % Seg Neutrophils # Seg Neutrophils # Man Lymphocytes # (Manual) Monocytes # (Manual) Eosinophils # (Manual) PT INR Fibrinogen dRVVT Confirm Interp Factor V Activity POC ABG pH POC ABG pCO2 POC ABG pO2 Sodium 131 L Potassium Chloride 94.5 L Carbon Dioxide 19 L BUN 97 H Creatinine 2.6 H Glucose 110 H POC Glucose 125 H 123 H Lactic Acid Calcium 8.3 L Phosphorus Magnesium Direct Bilirubin ALT Alkaline Phosphatase Troponin T C-Reactive Protein Total Protein Albumin Triglycerides Cholesterol LDL Cholesterol Direct HDL Cholesterol Urine WBC (Auto) Urine Creatinine Urine Total Protein Vancomycin Trough Rheumatoid Factor Complement C4 Miscellaneous Test Crossmatch 10/24/16 10/24/16 10/24/16 07:49 11:39 17:52 WBC RBC Hgb 6.0 L Hct 19.7 L* MCV MCH MCHC RDW Plt Count Lymph % (Auto) [place] % (Auto) Lymph # [place] # Baso # Seg Neutrophils % Seg Neuts % (Manual) Lymphocytes % (Manual) Monocytes % (Manual) Eosinophils % (Manual) Basophils % (Manual) Nucleated RBC % Seg Neutrophils # Seg Neutrophils # Man Lymphocytes # (Manual) Monocytes # (Manual) Eosinophils # (Manual) PT INR Fibrinogen dRVVT Confirm Interp Factor V Activity POC ABG pH POC ABG pCO2 POC ABG pO2 Sodium Potassium Chloride Carbon Dioxide BUN Creatinine Glucose POC Glucose 106 H 158 H Lactic Acid Calcium Phosphorus Magnesium Direct Bilirubin ALT Alkaline Phosphatase Troponin T C-Reactive Protein Total Protein Albumin Triglycerides Cholesterol LDL Cholesterol Direct HDL Cholesterol Urine WBC (Auto) Urine Creatinine Urine Total Protein Vancomycin Trough Rheumatoid Factor Complement C4 Miscellaneous Test Crossmatch 10/24/16 10/24/16 10/24/16 20:00 22:27 Unknown WBC RBC Hgb 9.4 L D Hct 27.5 L D MCV MCH MCHC RDW Plt Count Lymph % (Auto) [place] % (Auto) Lymph # [place] # Baso # Seg Neutrophils % Seg Neuts % (Manual) Lymphocytes % (Manual) Monocytes % (Manual) Eosinophils % (Manual) Basophils % (Manual) Nucleated RBC % Seg Neutrophils # Seg Neutrophils # Man Lymphocytes # (Manual) Monocytes # (Manual) Eosinophils # (Manual) PT INR Fibrinogen dRVVT Confirm Interp Factor V Activity POC ABG pH POC ABG pCO2 POC ABG pO2 Sodium Potassium Chloride Carbon Dioxide BUN Creatinine Glucose POC Glucose 125 H Lactic Acid Calcium Phosphorus Magnesium Direct Bilirubin ALT Alkaline Phosphatase Troponin T C-Reactive Protein Total Protein Albumin Triglycerides Cholesterol LDL Cholesterol Direct HDL Cholesterol Urine WBC (Auto) Urine Creatinine Urine Total Protein Vancomycin Trough Rheumatoid Factor Complement C4 Miscellaneous Test Crossmatch See Detail 10/25/16 10/25/16 10/25/16 04:00 04:00 04:00 WBC 14.2 H RBC 2.98 L Hgb 9.0 L Hct 26.2 L MCV MCH MCHC RDW 16.6 H Plt Count Lymph % (Auto) [place] % (Auto) 10.7 H Lymph # [place] # 1.5 H Baso # Seg Neutrophils % 73.6 H Seg Neuts % (Manual) Lymphocytes % (Manual) Monocytes % (Manual) Eosinophils % (Manual) Basophils % (Manual) Nucleated RBC % Seg Neutrophils # 10.5 H Seg Neutrophils # Man Lymphocytes # (Manual) Monocytes # (Manual) Eosinophils # (Manual) PT INR Fibrinogen dRVVT Confirm Interp Factor V Activity POC ABG pH POC ABG pCO2 POC ABG pO2 Sodium 132 L Potassium Chloride 94.7 L Carbon Dioxide BUN 51 H Creatinine 1.6 H Glucose 130 H POC Glucose Lactic Acid Calcium 8.3 L Phosphorus 1.60 L D Magnesium Direct Bilirubin ALT Alkaline Phosphatase Troponin T C-Reactive Protein Total Protein Albumin Triglycerides Cholesterol LDL Cholesterol Direct HDL Cholesterol Urine WBC (Auto) Urine Creatinine Urine Total Protein Vancomycin Trough Rheumatoid Factor Complement C4 Miscellaneous Test Crossmatch 10/25/16 10/25/16 10/25/16 04:32 11:48 17:22 WBC RBC Hgb Hct MCV MCH MCHC RDW Plt Count Lymph % (Auto) [place] % (Auto) Lymph # [place] # Baso # Seg Neutrophils % Seg Neuts % (Manual) Lymphocytes % (Manual) Monocytes % (Manual) Eosinophils % (Manual) Basophils % (Manual) Nucleated RBC % Seg Neutrophils # Seg Neutrophils # Man Lymphocytes # (Manual) Monocytes # (Manual) Eosinophils # (Manual) PT INR Fibrinogen dRVVT Confirm Interp Factor V Activity POC ABG pH POC ABG pCO2 POC ABG pO2 Sodium Potassium Chloride Carbon Dioxide BUN Creatinine Glucose POC Glucose 124 H 171 H 120 H Lactic Acid Calcium Phosphorus Magnesium Direct Bilirubin ALT Alkaline Phosphatase Troponin T C-Reactive Protein Total Protein Albumin Triglycerides Cholesterol LDL Cholesterol Direct HDL Cholesterol Urine WBC (Auto) Urine Creatinine Urine Total Protein Vancomycin Trough Rheumatoid Factor Complement C4 Miscellaneous Test Crossmatch 10/26/16 10/26/16 10/26/16 04:54 07:06 07:06 WBC 16.9 H RBC 3.06 L Hgb 9.1 L Hct 26.9 L MCV MCH MCHC RDW 16.9 H Plt Count Lymph % (Auto) [place] % (Auto) Lymph # [place] # Baso # Seg Neutrophils % Seg Neuts % (Manual) 71.0 H Lymphocytes % (Manual) 5.0 L Monocytes % (Manual) 12.0 H Eosinophils % (Manual) Basophils % (Manual) Nucleated RBC % Seg Neutrophils # Seg Neutrophils # Man 12.0 H Lymphocytes # (Manual) 0.8 L Monocytes # (Manual) 2.0 H Eosinophils # (Manual) PT INR Fibrinogen dRVVT Confirm Interp Factor V Activity POC ABG pH POC ABG pCO2 POC ABG pO2 Sodium 135 L Potassium Chloride 97.1 L Carbon Dioxide BUN 73 H Creatinine 2.2 H Glucose 117 H POC Glucose 123 H Lactic Acid Calcium Phosphorus 1.70 L Magnesium Direct Bilirubin ALT Alkaline Phosphatase Troponin T C-Reactive Protein Total Protein Albumin Triglycerides Cholesterol LDL Cholesterol Direct HDL Cholesterol Urine WBC (Auto) Urine Creatinine Urine Total Protein Vancomycin Trough Rheumatoid Factor Complement C4 Miscellaneous Test Crossmatch 10/26/16 10/26/16 10/26/16 12:12 17:29 23:42 WBC RBC Hgb Hct MCV MCH MCHC RDW Plt Count Lymph % (Auto) [place] % (Auto) Lymph # [place] # Baso # Seg Neutrophils % Seg Neuts % (Manual) Lymphocytes % (Manual) Monocytes % (Manual) Eosinophils % (Manual) Basophils % (Manual) Nucleated RBC % Seg Neutrophils # Seg Neutrophils # Man Lymphocytes # (Manual) Monocytes # (Manual) Eosinophils # (Manual) PT INR Fibrinogen dRVVT Confirm Interp Factor V Activity POC ABG pH POC ABG pCO2 POC ABG pO2 Sodium Potassium Chloride Carbon Dioxide BUN Creatinine Glucose POC Glucose 126 H 161 H 118 H Lactic Acid Calcium Phosphorus Magnesium Direct Bilirubin ALT Alkaline Phosphatase Troponin T C-Reactive Protein Total Protein Albumin Triglycerides Cholesterol LDL Cholesterol Direct HDL Cholesterol Urine WBC (Auto) Urine Creatinine Urine Total Protein Vancomycin Trough Rheumatoid Factor Complement C4 Miscellaneous Test Crossmatch 10/27/16 10/27/16 10/27/16 05:03 06:30 06:30 WBC 13.9 H RBC 3.09 L Hgb 9.2 L Hct 27.5 L MCV MCH MCHC RDW 17.0 H Plt Count Lymph % (Auto) [place] % (Auto) Lymph # [place] # Baso # Seg Neutrophils % Seg Neuts % (Manual) 78.0 H Lymphocytes % (Manual) Monocytes % (Manual) Eosinophils % (Manual) Basophils % (Manual) Nucleated RBC % 2.0 H Seg Neutrophils # Seg Neutrophils # Man 10.8 H Lymphocytes # (Manual) Monocytes # (Manual) 1.0 H Eosinophils # (Manual) PT INR Fibrinogen dRVVT Confirm Interp Factor V Activity POC ABG pH POC ABG pCO2 POC ABG pO2 Sodium Potassium Chloride Carbon Dioxide BUN 40 H Creatinine 1.5 H Glucose 135 H POC Glucose 107 H Lactic Acid Calcium 8.3 L Phosphorus 1.30 L D Magnesium Direct Bilirubin ALT Alkaline Phosphatase Troponin T C-Reactive Protein Total Protein Albumin Triglycerides Cholesterol LDL Cholesterol Direct HDL Cholesterol Urine WBC (Auto) Urine Creatinine Urine Total Protein Vancomycin Trough Rheumatoid Factor Complement C4 Miscellaneous Test Crossmatch 10/27/16 10/27/16 10/27/16 13:27 18:07 23:40 WBC RBC Hgb Hct MCV MCH MCHC RDW Plt Count Lymph % (Auto) [place] % (Auto) Lymph # [place] # Baso # Seg Neutrophils % Seg Neuts % (Manual) Lymphocytes % (Manual) Monocytes % (Manual) Eosinophils % (Manual) Basophils % (Manual) Nucleated RBC % Seg Neutrophils # Seg Neutrophils # Man Lymphocytes # (Manual) Monocytes # (Manual) Eosinophils # (Manual) PT INR Fibrinogen dRVVT Confirm Interp Factor V Activity POC ABG pH POC ABG pCO2 POC ABG pO2 Sodium Potassium Chloride Carbon Dioxide BUN Creatinine Glucose POC Glucose 117 H 121 H 118 H Lactic Acid Calcium Phosphorus Magnesium Direct Bilirubin ALT Alkaline Phosphatase Troponin T C-Reactive Protein Total Protein Albumin Triglycerides Cholesterol LDL Cholesterol Direct HDL Cholesterol Urine WBC (Auto) Urine Creatinine Urine Total Protein Vancomycin Trough Rheumatoid Factor Complement C4 Miscellaneous Test Crossmatch 10/28/16 10/28/16 10/28/16 05:48 06:45 06:45 WBC 14.7 H RBC 3.05 L Hgb 9.0 L Hct 26.9 L MCV MCH MCHC RDW 16.8 H Plt Count Lymph % (Auto) 8.2 L [place] % (Auto) 8.4 H Lymph # [place] # 1.2 H Baso # Seg Neutrophils % 81.9 H Seg Neuts % (Manual) Lymphocytes % (Manual) Monocytes % (Manual) Eosinophils % (Manual) Basophils % (Manual) Nucleated RBC % Seg Neutrophils # 12.1 H Seg Neutrophils # Man Lymphocytes # (Manual) Monocytes # (Manual) Eosinophils # (Manual) PT INR Fibrinogen dRVVT Confirm Interp Factor V Activity POC ABG pH POC ABG pCO2 POC ABG pO2 Sodium Potassium Chloride Carbon Dioxide BUN 60 H Creatinine 1.9 H Glucose 120 H POC Glucose 114 H Lactic Acid Calcium Phosphorus Magnesium Direct Bilirubin ALT Alkaline Phosphatase Troponin T C-Reactive Protein Total Protein Albumin Triglycerides Cholesterol LDL Cholesterol Direct HDL Cholesterol Urine WBC (Auto) Urine Creatinine Urine Total Protein Vancomycin Trough Rheumatoid Factor Complement C4 Miscellaneous Test Crossmatch 10/28/16 10/28/16 10/29/16 17:08 23:50 05:10 WBC RBC Hgb Hct MCV MCH MCHC RDW Plt Count Lymph % (Auto) [place] % (Auto) Lymph # [place] # Baso # Seg Neutrophils % Seg Neuts % (Manual) Lymphocytes % (Manual) Monocytes % (Manual) Eosinophils % (Manual) Basophils % (Manual) Nucleated RBC % Seg Neutrophils # Seg Neutrophils # Man Lymphocytes # (Manual) Monocytes # (Manual) Eosinophils # (Manual) PT INR Fibrinogen dRVVT Confirm Interp Factor V Activity POC ABG pH POC ABG pCO2 POC ABG pO2 Sodium Potassium Chloride Carbon Dioxide BUN Creatinine Glucose POC Glucose 109 H 110 H 124 H Lactic Acid Calcium Phosphorus Magnesium Direct Bilirubin ALT Alkaline Phosphatase Troponin T C-Reactive Protein Total Protein Albumin Triglycerides Cholesterol LDL Cholesterol Direct HDL Cholesterol Urine WBC (Auto) Urine Creatinine Urine Total Protein Vancomycin Trough Rheumatoid Factor Complement C4 Miscellaneous Test Crossmatch 10/29/16 10/29/16 10/29/16 07:45 07:45 12:19 WBC 14.7 H RBC 3.15 L Hgb 9.3 L Hct 28.9 L MCV MCH MCHC RDW 17.0 H Plt Count Lymph % (Auto) 11.9 L [place] % (Auto) 8.6 H Lymph # [place] # 1.3 H Baso # Seg Neutrophils % 78.1 H Seg Neuts % (Manual) Lymphocytes % (Manual) Monocytes % (Manual) Eosinophils % (Manual) Basophils % (Manual) Nucleated RBC % Seg Neutrophils # 11.4 H Seg Neutrophils # Man Lymphocytes # (Manual) Monocytes # (Manual) Eosinophils # (Manual) PT INR Fibrinogen dRVVT Confirm Interp Factor V Activity POC ABG pH POC ABG pCO2 POC ABG pO2 Sodium Potassium 5.1 H Chloride Carbon Dioxide 19 L BUN 78 H Creatinine 2.2 H Glucose 116 H POC Glucose 118 H Lactic Acid Calcium Phosphorus Magnesium Direct Bilirubin ALT Alkaline Phosphatase Troponin T C-Reactive Protein Total Protein Albumin Triglycerides Cholesterol LDL Cholesterol Direct HDL Cholesterol Urine WBC (Auto) Urine Creatinine Urine Total Protein Vancomycin Trough Rheumatoid Factor Complement C4 Miscellaneous Test Crossmatch 10/29/16 10/30/16 10/30/16 17:49 01:52 03:28 WBC RBC Hgb Hct MCV MCH MCHC RDW Plt Count Lymph % (Auto) [place] % (Auto) Lymph # [place] # Baso # Seg Neutrophils % Seg Neuts % (Manual) Lymphocytes % (Manual) Monocytes % (Manual) Eosinophils % (Manual) Basophils % (Manual) Nucleated RBC % Seg Neutrophils # Seg Neutrophils # Man Lymphocytes # (Manual) Monocytes # (Manual) Eosinophils # (Manual) PT INR Fibrinogen dRVVT Confirm Interp Factor V Activity POC ABG pH POC ABG pCO2 POC ABG pO2 Sodium Potassium 5.4 H Chloride 97.5 L Carbon Dioxide 19 L BUN 90 H Creatinine 2.5 H Glucose POC Glucose 120 H 129 H Lactic Acid Calcium Phosphorus 5.20 H Magnesium Direct Bilirubin ALT Alkaline Phosphatase Troponin T C-Reactive Protein Total Protein Albumin Triglycerides Cholesterol LDL Cholesterol Direct HDL Cholesterol Urine WBC (Auto) Urine Creatinine Urine Total Protein Vancomycin Trough Rheumatoid Factor Complement C4 Miscellaneous Test Crossmatch 10/30/16 10/30/16 10/30/16 03:28 08:19 08:19 WBC 11.6 H 15.9 H RBC 2.75 L 2.82 L Hgb 7.9 L 8.3 L Hct 24.2 L 25.2 L MCV MCH MCHC RDW 16.7 H 17.2 H Plt Count Lymph % (Auto) [place] % (Auto) 9.8 H Lymph # [place] # 1.1 H Baso # Seg Neutrophils % 74.2 H Seg Neuts % (Manual) Lymphocytes % (Manual) Monocytes % (Manual) Eosinophils % (Manual) Basophils % (Manual) Nucleated RBC % Seg Neutrophils # 8.6 H Seg Neutrophils # Man Lymphocytes # (Manual) Monocytes # (Manual) Eosinophils # (Manual) PT INR Fibrinogen dRVVT Confirm Interp Factor V Activity POC ABG pH POC ABG pCO2 POC ABG pO2 Sodium Potassium 5.3 H Chloride 97.4 L Carbon Dioxide 19 L BUN 93 H Creatinine 2.6 H Glucose POC Glucose Lactic Acid Calcium Phosphorus Magnesium Direct Bilirubin ALT Alkaline Phosphatase Troponin T C-Reactive Protein Total Protein Albumin Triglycerides Cholesterol LDL Cholesterol Direct HDL Cholesterol Urine WBC (Auto) Urine Creatinine Urine Total Protein Vancomycin Trough Rheumatoid Factor Complement C4 Miscellaneous Test Crossmatch Allied health notes reviewed: RT
--- NOTE | 2016-10-30 15:29 | Progress Note ---
Assessment and Plan Assessment and plan: Probability of clinically significant life-threatening deterioration of the cardiovascular or respiratory symptoms requiring my direct and full attention. Also reviewing data. Physician consultation and orders. - Patient Problems (1) JUANITA (acute kidney injury) Current Visit: Yes Status: Acute Plan to address problem: Acute kidney injury appears to be somewhat more chronic today. May require additional hemodialysis in the a.m. (2) Acute CVA (cerebrovascular accident) Current Visit: Yes Status: Acute Plan to address problem: Acute CVA left middle cerebral artery prognosis remains extremely poor. Continue to treat with antiplatelet therapy aggressive blood pressure control and lipid therapy. (3) Acute blood loss anemia Current Visit: Yes Status: Resolved (4) Acute respiratory failure with hypoxia Current Visit: Yes Status: Acute Plan to address problem: Patient remains intubated continue to treat bronchodilators and steroids unable to wean today. Spoke to pulmonology will be very difficult to wean with volume overload at this time. Continue renal failure. (5) Aspiration pneumonia Current Visit: Yes Status: Acute Qualifiers: Aspiration pneumonia type: A Laterality: L Lung location: L Plan to address problem: Continue antibiotic coverage as per infectious disease continue pressor support (6) Fungemia Current Visit: Yes Status: Acute Plan to address problem: Silvia has been treated. 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 No changes over p.m. hospital course remains complicated. Hospitalist Physical - Constitutional Vitals: Temp Pulse Resp BP Pulse Ox 99.5 F 108 H 38 H 191/93 100 10/30/16 11:41 10/30/16 13:00 10/30/16 13:00 10/30/16 13:00 10/30/16 13:00 General appearance: Present: no acute distress, obese, other (on vent, non- responsive) - Respiratory Respiratory: bilateral: diminished, rales (few) - Cardiovascular Rhythm: regular - Extremities Extremities: no ischemia, pulses intact, No edema, normal temperature Peripheral Pulses: within normal limits - Abdominal General gastrointestinal: soft, non-tender, distended - Psychiatric Psychiatric: other (intubated sedated.) Results - Labs CBC & Chem 7: 10/30/16 08:19 10/30/16 08:19 Labs: Laboratory Last Values WBC 15.9 K/mm3 (4.5-11.0) H 10/30/16 08:19 RBC 2.82 M/mm3 (3.65-5.03) L 10/30/16 08:19 Hgb 8.3 gm/dl (10.1-14.3) L 10/30/16 08:19 Hct 25.2 % (30.3-42.9) L 10/30/16 08:19 MCV 89 fl (79-97) 10/30/16 08:19 MCH 29 pg (28-32) 10/30/16 08:19 MCHC 33 % (30-34) 10/30/16 08:19 RDW 17.2 % (13.2-15.2) H 10/30/16 08:19 Plt Count 241 K/mm3 (140-440) 10/30/16 08:19 Lymph % (Auto) 13.5 % (13.4-35.0) 10/30/16 03:28 Louisa % (Auto) 9.8 % (0.0-7.3) H 10/30/16 03:28 Eos % (Auto) 1.4 % (0.0-4.3) 10/30/16 03:28 Baso % (Auto) 1.1 % (0.0-1.8) 10/30/16 03:28 Lymph # 1.6 K/mm3 (1.2-5.4) 10/30/16 03:28 Louisa # 1.1 K/mm3 (0.0-0.8) H 10/30/16 03:28 Eos # 0.2 K/mm3 (0.0-0.4) 10/30/16 03:28 Baso # 0.1 K/mm3 (0.0-0.1) 10/30/16 03:28 Add Manual Diff Complete 10/27/16 06:30 Total Counted 100 10/27/16 06:30 Seg Neutrophils % 74.2 % (40.0-70.0) H 10/30/16 03:28 Seg Neuts % (Manual) 78.0 % (40.0-70.0) H 10/27/16 06:30 Band Neutrophils % 0 % 10/27/16 06:30 Lymphocytes % (Manual) 14.0 % (13.4-35.0) 10/27/16 06:30 Reactive Lymphs % (Man) 0 % 10/27/16 06:30 Monocytes % (Manual) 7.0 % (0.0-7.3) 10/27/16 06:30 Eosinophils % (Manual) 0 % (0.0-4.3) 10/27/16 06:30 Basophils % (Manual) 1.0 % (0.0-1.8) 10/27/16 06:30 Metamyelocytes % 0 % 10/27/16 06:30 Myelocytes % 0 % 10/27/16 06:30 Promyelocytes % 0 % 10/27/16 06:30 Blast Cells % 0 % 10/27/16 06:30 Nucleated RBC % 2.0 % (0.0-0.9) H 10/27/16 06:30 Seg Neutrophils # 8.6 K/mm3 (1.8-7.7) H 10/30/16 03:28 Seg Neutrophils # Man 10.8 K/mm3 (1.8-7.7) H 10/27/16 06:30 Band Neutrophils # 0.0 K/mm3 10/27/16 06:30 Lymphocytes # (Manual) 1.9 K/mm3 (1.2-5.4) 10/27/16 06:30 Abs React Lymphs (Man) 0.0 K/mm3 10/27/16 06:30 Monocytes # (Manual) 1.0 K/mm3 (0.0-0.8) H 10/27/16 06:30 Eosinophils # (Manual) 0.0 K/mm3 (0.0-0.4) 10/27/16 06:30 Basophils # (Manual) 0.1 K/mm3 (0.0-0.1) 10/27/16 06:30 Metamyelocytes # 0.0 K/mm3 10/27/16 06:30 Myelocytes # 0.0 K/mm3 10/27/16 06:30 Promyelocytes # 0.0 K/mm3 10/27/16 06:30 Blast Cells # 0.0 K/mm3 10/27/16 06:30 Pathologist Review 09/13/16 04:00 WBC Morphology Not Reportable 10/27/16 06:30 Hypersegmented Neuts Not Reportable 10/27/16 06:30 Hyposegmented Neuts Not Reportable 10/27/16 06:30 Hypogranular Neuts Not Reportable 10/27/16 06:30 Smudge Cells Not Reportable 10/27/16 06:30 Toxic Granulation Not Reportable 10/27/16 06:30 Toxic Vacuolation Not Reportable 10/27/16 06:30 Dohle Bodies Not Reportable 10/27/16 06:30 Pelger-Huet Anomaly Not Reportable 10/27/16 06:30 Jasmina Rods Not Reportable 10/27/16 06:30 Platelet Estimate Cons 10/27/16 06:30 Clumped Platelets Not Reportable 10/27/16 06:30 Plt Clumps, EDTA Not Reportable 10/27/16 06:30 Large Platelets Few 10/27/16 06:30 Giant Platelets Not Reportable 10/27/16 06:30 Platelet Satelliting Not Reportable 10/27/16 06:30 Plt Morphology Comment Not Reportable 10/27/16 06:30 RBC Morphology Not Reportable 10/27/16 06:30 Dimorphic RBCs Not Reportable 10/27/16 06:30 Polychromasia Not Reportable 10/27/16 06:30 Hypochromasia Not Reportable 10/27/16 06:30 Poikilocytosis Not Reportable 10/27/16 06:30 Anisocytosis 1+ 10/27/16 06:30 Microcytosis Not Reportable 10/27/16 06:30 Macrocytosis Not Reportable 10/27/16 06:30 Spherocytes Not Reportable 10/27/16 06:30 Pappenheimer Bodies Not Reportable 10/27/16 06:30 Sickle Cells Not Reportable 10/27/16 06:30 Target Cells Not Reportable 10/27/16 06:30 Tear Drop Cells Not Reportable 10/27/16 06:30 Ovalocytes Not Reportable 10/27/16 06:30 Stomatocytes Few 10/06/16 03:50 Helmet Cells Not Reportable 10/27/16 06:30 Monet-Ingleside Bodies Not Reportable 10/27/16 06:30 Clements Rings Not Reportable 10/27/16 06:30 [place] Cells Not Reportable 10/27/16 06:30 Bite Cells Not Reportable 10/27/16 06:30 Crenated Cell Not Reportable 10/27/16 06:30 Elliptocytes Not Reportable 10/27/16 06:30 Acanthocytes (Spur) Not Reportable 10/27/16 06:30 Rouleaux Not Reportable 10/27/16 06:30 Hemoglobin C Crystals Not Reportable 10/27/16 06:30 Schistocytes Not Reportable 10/27/16 06:30 Malaria parasites Not Reportable 10/27/16 06:30 ESR > 140.0 mm/Hr (0-20) 09/08/16 11:48 Jun Bodies Not Reportable 10/27/16 06:30 Hem Pathologist Commnt No 10/27/16 06:30 PT 19.0 Sec. (12.2-14.9) H 10/09/16 03:45 INR 1.51 (0.87-1.13) H 10/09/16 03:45 APTT 33.0 Sec. (24.2-36.6) 10/09/16 03:45 Thrombin Time 16.8 Sec. (15.1-19.6) 09/03/16 00:10 Fibrinogen 750 mg/dl (211-480) H 09/08/16 11:48 Lupus Anticoagulant see below 09/12/16 09:59 LA PTT Baseline See scanned report 09/12/16 09:59 dRVVT Confirm Interp Positive (Negative) H 09/12/16 09:59 dRVVT Screen 50:50 See scanned report 09/12/16 09:59 dRVVT Mix Interpret See scanned report 09/12/16 09:59 Protein C Antigen 122 % (70-140) 09/08/16 15:35 Free Protein S 97 % normal (50-147) 09/08/16 15:35 Total Protein S 109 % (70-140) 09/08/16 15:35 Antithrombin III Ag 100 % (80-120) 09/08/16 15:35 Heparin Anti-Xa, Unfract Negative (Negative) 09/29/16 13:35 Factor V Activity 182 % (65-150) H 09/08/16 15:35 POC ABG pH 7.561 (7.35-7.45) H 10/16/16 20:48 POC ABG pCO2 24.4 (35-45) L 10/16/16 20:48 POC ABG pO2 77 (80-105) L 10/16/16 20:48 POC ABG HCO3 21.9 10/16/16 20:48 POC ABG Total CO2 23 10/16/16 20:48 POC ABG O2 Sat 97 10/16/16 20:48 POC ABG Base Excess 0 10/16/16 20:48 FiO2 25 % 10/16/16 20:48 Sodium 137 mmol/L (137-145) 10/30/16 08:19 Potassium 5.3 mmol/L (3.6-5.0) H 10/30/16 08:19 Chloride 97.4 mmol/L (98-107) L 10/30/16 08:19 Carbon Dioxide 19 mmol/L (22-30) L 10/30/16 08:19 Anion Gap 26 mmol/L 10/30/16 08:19 BUN 93 mg/dL (7-17) H 10/30/16 08:19 Creatinine 2.6 mg/dL (0.7-1.2) H 10/30/16 08:19 Estimated GFR 24 ml/min 10/30/16 08:19 BUN/Creatinine Ratio 35.76 % 10/30/16 08:19 Glucose 94 mg/dL (65-100) 10/30/16 08:19 POC Glucose 91 (70-105) 10/30/16 11:22 Osmolality 351 Mosm/kg 09/16/16 11:47 Lactic Acid 4.50 mmol/L (0.7-2.0) H* 09/28/16 07:25 Calcium 8.9 mg/dL (8.4-10.2) 10/30/16 08:19 Phosphorus 5.20 mg/dL (2.5-4.5) H 10/30/16 03:28 Magnesium 1.90 mg/dL (1.7-2.3) 10/29/16 07:45 Total Bilirubin 0.30 mg/dL (0.1-1.2) 10/17/16 04:24 Direct Bilirubin 0.3 mg/dL (0-0.2) H 10/10/16 05:00 Indirect Bilirubin 0.1 mg/dL 10/10/16 05:00 AST 39 units/L (5-40) 10/17/16 04:24 ALT 13 units/L (7-56) 10/17/16 04:24 Alkaline Phosphatase 138 units/L (35-129) H 10/17/16 04:24 Ammonia 27.0 umol/L (25-60) 09/07/16 08:37 Total Creatine Kinase 121 units/L (30-135) 09/29/16 20:12 CK-MB (CK-2) < 1.0 ng/mL (0.0-4.0) 09/29/16 20:12 CK-MB (CK-2) Rel Index 0.8 (0-4) 09/29/16 20:12 Troponin T 0.204 ng/mL (0.00-0.029) H* 09/29/16 20:12 C-Reactive Protein 15.80 mg/dL (0.00-1.30) H 10/11/16 04:15 Total Protein 6.2 g/dL (6.3-8.2) L 10/17/16 04:24 Albumin 1.5 g/dL (3.9-5) L 10/17/16 04:24 Albumin/Globulin Ratio 0.3 % 10/17/16 04:24 Triglycerides 137 mg/dL (2-149) 09/29/16 20:12 Cholesterol 31 mg/dL (50-199) L 09/29/16 20:12 LDL Cholesterol Direct 4 mg/dL (50-130) L 09/29/16 20:12 HDL Cholesterol 3 mg/dL (40-59) L 09/29/16 20:12 Cholesterol/HDL Ratio 10.33 % 09/29/16 20:12 Angiotensin Convert Enz See scanned report 09/08/16 11:48 Renin 0.99 ng/mL/h (0.25-5.82) 10/07/16 10:56 Aldosterone <1 ng/dL () 10/07/16 10:56 Aldosterone/Renin Dir see below 10/07/16 10:56 Serotonin Release Assay See scanned report 09/29/16 13:35 TSH 1.010 mlU/mL (0.270-4.200) 09/07/16 08:37 HCG, Qual Negative (Negative) 09/03/16 00:10 Urine Color [place] (Yellow) 10/07/16 18:30 Urine Turbidity Turbid (Clear) 10/07/16 18:30 Urine pH 7.0 (5.0-7.0) 10/07/16 18:30 Ur Specific [place] 1.012 (1.003-1.030) 10/07/16 18:30 Urine Protein 100 mg/dl mg/dL (Negative) 10/07/16 18:30 Urine Glucose (UA) Neg mg/dL (Negative) 10/07/16 18:30 Urine Ketones Neg mg/dL (Negative) 10/07/16 18:30 Urine Blood Lg (Negative) 10/07/16 18:30 Urine Nitrite Neg (Negative) 10/07/16 18:30 Urine Bilirubin Neg (Negative) 10/07/16 18:30 Urine Urobilinogen < 2.0 mg/dL (<2.0) 10/07/16 18:30 Ur Leukocyte Esterase Lg (Negative) 10/07/16 18:30 Urine WBC (Auto) > 182.0 /HPF (0.0-6.0) H 10/07/16 18:30 Urine RBC (Auto) > 182.0 /HPF (0.0-6.0) 10/07/16 18:30 U Epithel Cells (Auto) 1.0 /HPF (0-13.0) 10/07/16 18:30 Urine Bacteria (Auto) 3+ /HPF (Negative) 10/07/16 18:30 Urine WBC Clumps 2+ /HPF 09/07/16 02:47 Hyaline Casts 4 /LPF 09/07/16 02:47 Urine Mucus Few /HPF 10/07/16 18:30 Urine Yeast (Budding) 3+ /HPF 10/07/16 18:30 Urine Eosinophils None seen (None Seen) 09/07/16 16:00 Urine Total Volume TNR 10/29/16 07:45 Urine Creatinine TNR 10/29/16 07:45 Height (in) TNR 10/29/16 07:45 Weight (lb) TNR 10/29/16 07:45 Creatinine Clearance TNR 10/29/16 07:45 Urine Sodium 36 mEq/L 09/16/16 19:19 Urine Total Protein 16 mg/dL (5-11.8) H 09/16/16 19:19 Vancomycin Trough 2.3 ug/mL (5.0-20.0) L 09/21/16 13:00 Random Vancomycin 17.0 ug/mL (0-40.0) 10/20/16 06:00 Urine Opiates Screen Presumptive negative 09/03/16 15:11 Urine Methadone Screen Presumptive positive 09/03/16 15:11 Ur Barbiturates Screen Presumptive positive 09/03/16 15:11 Ur Phencyclidine Scrn Presumptive negative 09/03/16 15:11 Ur Amphetamines Screen Presumptive negative 09/03/16 15:11 U Benzodiazepines Scrn Presumptive negative 09/03/16 15:11 Urine Cocaine Screen Presumptive negative 09/03/16 15:11 U Marijuana (THC) Screen Presumptive positive 09/03/16 15:11 Drugs of Abuse Note Disclamer 09/03/16 15:11 Rheumatoid Factor 24 IU/ml (0-13) H 09/08/16 11:48 SAHIL Screen Negative (Negative) 09/07/16 09:20 Proteinase 3 (PR3) Ab <1.0 AI (<1.0) 09/07/16 09:20 Myeloperoxidase Ab <1.0 AI (<1.0) 09/07/16 09:20 Sjogren's Antibody <1.0 AI (<1.0) 09/08/16 15:35 Scl-70 Scleroderma Ab <1.0 AI (<1.0) 09/08/16 15:35 Centromere B Antibody <1.0 AI (<1.0) 09/08/16 12:02 Heparin-induced Plt Ab Negative (Negative) 09/29/16 13:35 UF Heparin High Dose 11 % Release 09/29/16 13:35 SUDHIR UFH Low Dose 0.1 6 % Release 09/29/16 13:35 SUDHIR UFH Low Dose 0.5 8 % Release 09/29/16 13:35 Cardiolipid IgG Ab <14 GPL (<=14) 09/12/16 09:59 Cardiolipid IgA Ab <11 APL (<=11) 09/12/16 09:59 Cardiolipid IgM Ab <12 MPL (<=12) 09/12/16 09:59 Complement C3 148 mg/dL (90-180) 09/07/16 09:20 Complement C4 58 mg/dL (16-47) H 09/07/16 09:20 RPR Nonreactive (Nonreactive) 09/08/16 11:48 Hepatitis A IgM Ab Non-reactive (NonReactive) 09/24/16 14:40 Hep Bs Antigen Non-reactive (Negative) 09/24/16 14:40 Hep B Core IgM Ab Non-reactive (NonReactive) 09/24/16 14:40 Hepatitis C Antibody Non-reactive (NonReactive) 09/24/16 14:40 HIV 1&2 Antibody Rapid Non react (Non React) 09/08/16 11:48 HIV P24 Antigen Non react (Non React) 09/08/16 11:48 Miscellaneous Test Flexitest 1 H 10/20/16 16:00 Blood Type A POSITIVE 10/24/16 Unknown Antibody Screen Negative 10/24/16 Unknown DELORIS Antibody Screen Negative 09/25/16 10:30 Crossmatch See Detail 10/24/16 Unknown - Imaging and Cardiology Chest x-ray: image reviewed CT scan - abdomen: image reviewed US - abdomen: other (ultrasound)
[2016-10-30] MEDS ORDERED: ALBURX 25% (ALBUMIN) IV SCH (17:30)
[2016-10-30] MEDS: DIFLUCAN 200 MG/100 ML BAG IV SCH (18:59)
[2016-10-30] MEDS ORDERED: TPN ADULT 2,016 ML IV SCH (20:00)
[2016-10-30] MEDS: TRANSDERM-SCOP TD SCH (21:42)
[2016-10-31] MEDS: HumuLIN R SUB-Q SCH ×3 (00:41→13:00)
[2016-10-31] MEDS: MORPHINE IV PRN (00:49)
[2016-10-31] MEDS: APRESOLINE IV PRN ×2 (01:10→13:37)
[2016-10-31] MEDS: LOPRESSOR IV SCH ×2 (02:01→06:12)
[2016-10-31] MEDS: ALBURX 25% (ALBUMIN) IV SCH (06:13)
[2016-10-31] MEDS: LASIX IV SCH (07:08)
[2016-10-31 07:50] LABS: BUN/Creatinine Ratio 38.07; Calcium 8.4 mg/dL (8.4-10.2)
[2016-10-31 07:56] LABS: Basophils # (Auto) 0.1 K/mm3 (0.0-0.1); Basophils % (Auto) 0.6 % (0.0-1.8); Eosinophils # (Auto) 0.2 K/mm3 (0.0-0.4); Hematocrit 23.3 % (30.3-42.9); Hemoglobin 7.7 gm/dl (10.1-14.3); Lymphocytes # (Auto) 1.4 K/mm3 (1.2-5.4); Lymphocytes % (Auto) 11.7 % (13.4-35.0); Mean Corpuscular HGB Conc 33 % (30-34); Mean Corpuscular Hemoglobin 29 pg (28-32); Mean Corpuscular Volume 89 fl (79-97); Monocytes # (Auto) 0.9 K/mm3 (0.0-0.8); Monocytes % (Auto) 7.7 % (0.0-7.3); Platelet Count 212 K/mm3 (140-440); Red Blood Count 2.63 M/mm3 (3.65-5.03); Red Cell Distribution Width 16.7 % (13.2-15.2)
[2016-10-31] MEDS: HEPARIN IV PRN (09:50)
--- NOTE | 2016-10-31 09:50 | Progress Note ---
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 * Acute hypoxic respiratory failure * Left renal artery stenosis * Metabolic acidosis - improved * Anemia * Hyponatremia - multifactorial Plan: * Patient's urine output seems to have declined * hemodialysis MWF and prn * monitor for renal recovery * Rate control per cardiology * Abx/antifungal per ID * Vent management per critical care * Dose medications for renal function * Avoid potential nephrotoxins Subjective Date of service: 10/31/16 Principal diagnosis: Acute resp failure on MVS; S/P Acute CVA; Acute Encephalopathy; JUANITA Interval history: no new event Objective - Exam Narrative Exam: Gen. appearance: Patient lying in bed, no apparent distress, 4. restraints HEENT: Normocephalic, atraumatic, pupils equally round and reactive to light, extraocular movement intact, and no sclericterus,. No JVD or thyromegaly or nodule,neck supple, no carotid bruit ,mucous membranes moist, unable to examine oral cavity Heart: S1, S2, regular rate and rhythm Lungs: Clear to auscultation bilaterally, breathing comfortable Abdomen: Positive bowel sounds, nontender, nondistended, no organomegaly Extremity: No edema, cyanosis, clubbing Skin: No rash, nodules, warm, dry Neuro: Difficult to assess, facial droop, moves all 4 extremities - Vital Signs Vital signs: Vital Signs - 12hr 10/30/16 10/30/16 10/30/16 22:00 22:31 23:01 Temperature Pulse Rate 106 H 107 H 109 H Respiratory 25 H 24 24 Rate Blood Pressure 193/101 205/96 205/93 O2 Sat by Pulse 100 100 100 Oximetry O2 Sat by Pulse Oximetry [ Assessment] O2 Sat by Pulse Oximetry [ Bilateral Throughout] 10/30/16 10/30/16 10/31/16 23:15 23:31 00:00 Temperature 98.7 F Pulse Rate 108 H 109 H Respiratory 21 Rate Blood Pressure 205/93 200/96 O2 Sat by Pulse 100 100 Oximetry O2 Sat by Pulse Oximetry [ Assessment] O2 Sat by Pulse Oximetry [ Bilateral Throughout] 10/31/16 10/31/16 10/31/16 00:01 00:30 01:01 Temperature Pulse Rate 112 H 112 H 114 H Respiratory 24 26 H 24 Rate Blood Pressure 203/101 212/106 216/105 O2 Sat by Pulse 100 100 100 Oximetry O2 Sat by Pulse Oximetry [ Assessment] O2 Sat by Pulse Oximetry [ Bilateral Throughout] 10/31/16 10/31/16 10/31/16 01:10 01:30 02:01 Temperature Pulse Rate 113 H 116 H 108 H Respiratory 25 H 23 Rate Blood Pressure 216/105 216/105 192/96 O2 Sat by Pulse 100 100 Oximetry O2 Sat by Pulse Oximetry [ Assessment] O2 Sat by Pulse Oximetry [ Bilateral Throughout] 10/31/16 10/31/16 10/31/16 02:30 03:01 03:09 Temperature Pulse Rate 107 H 108 H 111 H Respiratory 22 24 Rate Blood Pressure 195/95 193/97 193/97 O2 Sat by Pulse 100 100 100 Oximetry O2 Sat by Pulse Oximetry [ Assessment] O2 Sat by Pulse Oximetry [ Bilateral Throughout] 10/31/16 10/31/16 10/31/16 03:30 04:00 04:31 Temperature 98 F Pulse Rate 110 H 112 H 110 H Respiratory 24 27 H 26 H Rate Blood Pressure 204/105 207/104 200/98 O2 Sat by Pulse 100 100 100 Oximetry O2 Sat by Pulse Oximetry [ Assessment] O2 Sat by Pulse Oximetry [ Bilateral Throughout] 10/31/16 10/31/16 10/31/16 05:00 05:30 06:01 Temperature Pulse Rate 115 H 117 H 109 H Respiratory 25 H 32 H 23 Rate Blood Pressure 211/106 211/107 210/109 O2 Sat by Pulse 100 97 100 Oximetry O2 Sat by Pulse Oximetry [ Assessment] O2 Sat by Pulse Oximetry [ Bilateral Throughout] 10/31/16 10/31/16 10/31/16 06:12 06:30 06:31 Temperature 97.0 F L Pulse Rate 116 H 114 H 115 H Respiratory 34 H 28 H Rate Blood Pressure 213/106 193/92 193/92 O2 Sat by Pulse 100 Oximetry O2 Sat by Pulse Oximetry [ Assessment] O2 Sat by Pulse 100 Oximetry [ Bilateral Throughout] 10/31/16 10/31/16 10/31/16 06:45 07:00 07:01 Temperature Pulse Rate 114 H 107 H 117 H Respiratory 33 H Rate Blood Pressure 211/114 193/119 211/114 O2 Sat by Pulse Oximetry O2 Sat by Pulse Oximetry [ Assessment] O2 Sat by Pulse Oximetry [ Bilateral Throughout] 10/31/16 10/31/16 10/31/16 07:15 07:30 07:35 Temperature 97.6 F Pulse Rate 109 H 112 H Respiratory 24 Rate Blood Pressure 196/122 164/100 O2 Sat by Pulse Oximetry O2 Sat by Pulse Oximetry [ Assessment] O2 Sat by Pulse Oximetry [ Bilateral Throughout] 10/31/16 10/31/16 10/31/16 07:45 08:00 08:15 Temperature Pulse Rate 118 H 120 H 118 H Respiratory 23 Rate Blood Pressure 158/95 145/94 145/94 O2 Sat by Pulse Oximetry O2 Sat by Pulse Oximetry [ Assessment] O2 Sat by Pulse Oximetry [ Bilateral Throughout] 10/31/16 10/31/16 10/31/16 08:21 08:30 08:34 Temperature Pulse Rate 123 H 127 H Respiratory 18 Rate Blood Pressure 132/90 133/92 O2 Sat by Pulse 91 99 Oximetry O2 Sat by Pulse 98 Oximetry [ Assessment] O2 Sat by Pulse Oximetry [ Bilateral Throughout] 10/31/16 10/31/16 10/31/16 08:45 09:00 09:15 Temperature Pulse Rate 123 H 127 H 125 H Respiratory 25 H Rate Blood Pressure 132/93 132/80 137/85 O2 Sat by Pulse 98 Oximetry O2 Sat by Pulse Oximetry [ Assessment] O2 Sat by Pulse Oximetry [ Bilateral Throughout] 10/31/16 10/31/16 09:30 09:45 Temperature Pulse Rate 125 H 128 H Respiratory Rate Blood Pressure 149/93 145/97 O2 Sat by Pulse Oximetry O2 Sat by Pulse Oximetry [ Assessment] O2 Sat by Pulse Oximetry [ Bilateral Throughout] - Lab 10/31/16 07:15 10/31/16 07:15 Most recent lab results Calcium 8.4 mg/dL (8.4-10.2) 10/31/16 07:15 Phosphorus 4.80 mg/dL (2.5-4.5) H 10/31/16 07:15 Magnesium 1.90 mg/dL (1.7-2.3) 10/31/16 07:15 Urine Creatinine TNR 10/29/16 07:45 Urine Sodium 36 mEq/L 09/16/16 19:19 Urine Total Protein 16 mg/dL (5-11.8) H 09/16/16 19:19
--- NOTE | 2016-10-31 10:29 | Progress Note ---
Assessment and Plan Patient is 46-year-old woman with a history of hypertension, diabetes mellitus, asthma, hyperlipidemia, chronic kidney disease and anxiety, who was brought in by family because she couldn't get her words out, her face was also twisted, she was admitted for acute CVA and accelerated hypertension, she had a hx of poor adherence with her medications, and uncontrolled htn. Patient's SBP on admission was noted be greater than 260. TPA was started but this it was discontinued after 5 minutes because her blood pressure became uncontrolled. The TPA was not initiated again because the patient was outside the TPA window. - Patient Problems (1) Acute respiratory failure with hypoxia Current Visit: Yes Status: Acute Plan to address problem: Continue with mechanical ventilatory support and daily SBTs as tolerated Currently tolerating ATP trials Lung protective strategies -VAP bundle, HOB >40 - SCDs for VTE prophylaxis - Stress ulcer prophylaxis -Bronchodilators- h/o asthma - TPN, accucheck with glycemic control - ABGs and CXR PRN (2) Acute blood loss anemia Current Visit: Yes Status: Resolved Plan to address problem: Transfuse for Hgh 7g/dl Monitor counts (3) Acute CVA (cerebrovascular accident) Current Visit: Yes Status: Acute Plan to address problem: CTScan -subacute MCA territory infarct Secondary stroke prophylaxis Neuroprotective measures Aspiration precautions (4) Chronic renal insufficiency Current Visit: Yes Status: Acute Qualifiers: Chronic kidney disease stage: C Plan to address problem: UF/HD per renal service Renal following (5) Uncontrolled hypertension Current Visit: Yes Status: Acute Plan to address problem: Monitor closely and adjust anti-hypertensive medications (6) Leukocytosis (leucocytosis) Current Visit: Yes Status: Acute Qualifiers: Leukocytosis type: leukemoid reaction Qualified Code(s): D72.823 - Leukemoid reaction Plan to address problem: Improving. ID following and monitoring (7) Dislodged gastrostomy tube Current Visit: Yes Status: Acute Plan to address problem: With bowel perforation/peritonitis( resolved) Remains NPO except medications and on TPN for nutritional support. (8) Fungemia Current Visit: Yes Status: Resolved Plan to address problem: Anti-fungal therapy per ID service. Subjective Date of service: 10/31/16 Principal diagnosis: Acute resp failure on MVS; S/P Acute CVA; Acute Encephalopathy; JUANITA Interval history: Seen and examined. Vitals, labs, medications, chart reviewed. On mechanical ventilatory support, tolerating SBTs On TPN, with purulent drainage from the JUAN drain. Discussed with RT and RN during interdisciplinary rounds. Objective Vital Signs - 12hr 10/30/16 10/30/16 10/30/16 22:31 23:01 23:15 Temperature Pulse Rate 107 H 109 H 108 H Respiratory 24 24 Rate Blood Pressure 205/96 205/93 205/93 O2 Sat by Pulse 100 100 100 Oximetry O2 Sat by Pulse Oximetry [ Assessment] O2 Sat by Pulse Oximetry [ Bilateral Throughout] 10/30/16 10/31/16 10/31/16 23:31 00:00 00:01 Temperature 98.7 F Pulse Rate 109 H 112 H Respiratory 21 24 Rate Blood Pressure 200/96 203/101 O2 Sat by Pulse 100 100 Oximetry O2 Sat by Pulse Oximetry [ Assessment] O2 Sat by Pulse Oximetry [ Bilateral Throughout] 10/31/16 10/31/16 10/31/16 00:30 01:01 01:10 Temperature Pulse Rate 112 H 114 H 113 H Respiratory 26 H 24 Rate Blood Pressure 212/106 216/105 216/105 O2 Sat by Pulse 100 100 Oximetry O2 Sat by Pulse Oximetry [ Assessment] O2 Sat by Pulse Oximetry [ Bilateral Throughout] 10/31/16 10/31/16 10/31/16 01:30 02:01 02:30 Temperature Pulse Rate 116 H 108 H 107 H Respiratory 25 H 23 22 Rate Blood Pressure 216/105 192/96 195/95 O2 Sat by Pulse 100 100 100 Oximetry O2 Sat by Pulse Oximetry [ Assessment] O2 Sat by Pulse Oximetry [ Bilateral Throughout] 10/31/16 10/31/16 10/31/16 03:01 03:09 03:30 Temperature Pulse Rate 108 H 111 H 110 H Respiratory 24 24 Rate Blood Pressure 193/97 193/97 204/105 O2 Sat by Pulse 100 100 100 Oximetry O2 Sat by Pulse Oximetry [ Assessment] O2 Sat by Pulse Oximetry [ Bilateral Throughout] 10/31/16 10/31/16 10/31/16 04:00 04:31 05:00 Temperature 98 F Pulse Rate 112 H 110 H 115 H Respiratory 27 H 26 H 25 H Rate Blood Pressure 207/104 200/98 211/106 O2 Sat by Pulse 100 100 100 Oximetry O2 Sat by Pulse Oximetry [ Assessment] O2 Sat by Pulse Oximetry [ Bilateral Throughout] 10/31/16 10/31/16 10/31/16 05:30 06:01 06:12 Temperature Pulse Rate 117 H 109 H 116 H Respiratory 32 H 23 Rate Blood Pressure 211/107 210/109 213/106 O2 Sat by Pulse 97 100 Oximetry O2 Sat by Pulse Oximetry [ Assessment] O2 Sat by Pulse Oximetry [ Bilateral Throughout] 10/31/16 10/31/16 10/31/16 06:30 06:31 06:45 Temperature 97.0 F L Pulse Rate 114 H 115 H 114 H Respiratory 34 H 28 H Rate Blood Pressure 193/92 193/92 211/114 O2 Sat by Pulse 100 Oximetry O2 Sat by Pulse Oximetry [ Assessment] O2 Sat by Pulse 100 Oximetry [ Bilateral Throughout] 10/31/16 10/31/16 10/31/16 07:00 07:01 07:15 Temperature Pulse Rate 107 H 117 H 109 H Respiratory 33 H Rate Blood Pressure 193/119 211/114 196/122 O2 Sat by Pulse Oximetry O2 Sat by Pulse Oximetry [ Assessment] O2 Sat by Pulse Oximetry [ Bilateral Throughout] 10/31/16 10/31/16 10/31/16 07:30 07:35 07:45 Temperature 97.6 F Pulse Rate 112 H 118 H Respiratory 24 Rate Blood Pressure 164/100 158/95 O2 Sat by Pulse Oximetry O2 Sat by Pulse Oximetry [ Assessment] O2 Sat by Pulse Oximetry [ Bilateral Throughout] 10/31/16 10/31/16 10/31/16 08:00 08:15 08:21 Temperature Pulse Rate 120 H 118 H 123 H Respiratory 23 Rate Blood Pressure 145/94 145/94 132/90 O2 Sat by Pulse 91 Oximetry O2 Sat by Pulse Oximetry [ Assessment] O2 Sat by Pulse Oximetry [ Bilateral Throughout] 10/31/16 10/31/16 10/31/16 08:30 08:34 08:45 Temperature Pulse Rate 127 H 123 H Respiratory 18 Rate Blood Pressure 133/92 132/93 O2 Sat by Pulse 99 Oximetry O2 Sat by Pulse 98 Oximetry [ Assessment] O2 Sat by Pulse Oximetry [ Bilateral Throughout] 10/31/16 10/31/16 10/31/16 09:00 09:15 09:30 Temperature Pulse Rate 127 H 125 H 125 H Respiratory 25 H Rate Blood Pressure 132/80 137/85 149/93 O2 Sat by Pulse 98 Oximetry O2 Sat by Pulse Oximetry [ Assessment] O2 Sat by Pulse Oximetry [ Bilateral Throughout] 10/31/16 09:45 Temperature Pulse Rate 128 H Respiratory Rate Blood Pressure 145/97 O2 Sat by Pulse Oximetry O2 Sat by Pulse Oximetry [ Assessment] O2 Sat by Pulse Oximetry [ Bilateral Throughout] Constitutional: no acute distress, other (eyes open; not tracking movements) Eyes: non-icteric, other (tracheostomy tube in midline of neck) ENT: oropharynx moist Neck: supple, no lymphadenopathy Effort: normal, mildly labored Ascultation: Right: diminished breath sounds (base), Bilateral: clear, rales, rhonchi (scant) Cardiovascular: regular rate and rhythm Gastrointestinal: normoactive bowel sounds, hypoactive bowel sounds, soft, non- tender, non-distended, other (RLQ wound dressed) Integumentary: other (erythema to skin of back with some healing areas) Extremities: no cyanosis, no edema, pulses normal, no ischemia or petechiae Neurologic: pupils equal and round, other (encephalopathic) Psychiatric: other (unable to assess) CBC and BMP: 12/28/16 04:00 12/29/16 05:15 ABG, PT/INR, D-dimer: ABG POC ABG pH 7.561 (7.35-7.45) H 10/16/16 20:48 POC ABG pCO2 24.4 (35-45) L 10/16/16 20:48 POC ABG pO2 77 (80-105) L 10/16/16 20:48 POC ABG HCO3 21.9 10/16/16 20:48 POC ABG Total CO2 23 10/16/16 20:48 POC ABG O2 Sat 97 10/16/16 20:48 PT/INR, D-dimer PT 19.0 Sec. (12.2-14.9) H 10/09/16 03:45 INR 1.51 (0.87-1.13) H 10/09/16 03:45 Abnormal lab findings: Abnormal Labs 09/03/16 09/03/16 09/03/16 12:12 15:07 16:20 WBC RBC Hgb Hct MCV MCH MCHC RDW Plt Count Lymph % (Auto) Carbon % (Auto) Lymph # Carbon # Baso # Seg Neutrophils % Seg Neuts % (Manual) Lymphocytes % (Manual) Monocytes % (Manual) Eosinophils % (Manual) Basophils % (Manual) Nucleated RBC % Seg Neutrophils # Seg Neutrophils # Man Lymphocytes # (Manual) Monocytes # (Manual) Eosinophils # (Manual) PT INR Fibrinogen dRVVT Confirm Interp Factor V Activity POC ABG pH 7.452 H POC ABG pCO2 POC ABG pO2 Sodium Potassium Chloride Carbon Dioxide BUN Creatinine Glucose POC Glucose 178 H Lactic Acid Calcium Phosphorus 2.20 L Magnesium 1.60 L Direct Bilirubin ALT Alkaline Phosphatase Troponin T C-Reactive Protein Total Protein Albumin Triglycerides Cholesterol LDL Cholesterol Direct HDL Cholesterol Urine WBC (Auto) Urine Creatinine Urine Total Protein Vancomycin Trough Rheumatoid Factor Complement C4 Miscellaneous Test Crossmatch 09/03/16 09/03/16 09/03/16 17:57 17:58 23:50 WBC RBC Hgb Hct MCV MCH MCHC RDW Plt Count Lymph % (Auto) Carbon % (Auto) Lymph # Carbon # Baso # Seg Neutrophils % Seg Neuts % (Manual) Lymphocytes % (Manual) Monocytes % (Manual) Eosinophils % (Manual) Basophils % (Manual) Nucleated RBC % Seg Neutrophils # Seg Neutrophils # Man Lymphocytes # (Manual) Monocytes # (Manual) Eosinophils # (Manual) PT INR Fibrinogen dRVVT Confirm Interp Factor V Activity POC ABG pH POC ABG pCO2 POC ABG pO2 Sodium Potassium Chloride Carbon Dioxide BUN Creatinine Glucose POC Glucose 162 H 145 H Lactic Acid Calcium Phosphorus 2.30 L Magnesium Direct Bilirubin ALT Alkaline Phosphatase Troponin T C-Reactive Protein Total Protein Albumin Triglycerides Cholesterol LDL Cholesterol Direct HDL Cholesterol Urine WBC (Auto) Urine Creatinine Urine Total Protein Vancomycin Trough Rheumatoid Factor Complement C4 Miscellaneous Test Crossmatch 09/04/16 09/04/16 09/04/16 03:31 03:31 05:42 WBC RBC Hgb 9.7 L D Hct MCV 72 L MCH 23 L MCHC RDW 17.5 H Plt Count Lymph % (Auto) 11.1 L Carbon % (Auto) Lymph # Carbon # Baso # Seg Neutrophils % 84.3 H Seg Neuts % (Manual) Lymphocytes % (Manual) Monocytes % (Manual) Eosinophils % (Manual) Basophils % (Manual) Nucleated RBC % Seg Neutrophils # 8.9 H Seg Neutrophils # Man Lymphocytes # (Manual) Monocytes # (Manual) Eosinophils # (Manual) PT INR Fibrinogen dRVVT Confirm Interp Factor V Activity POC ABG pH POC ABG pCO2 POC ABG pO2 Sodium 135 L Potassium 2.9 L* Chloride 97.2 L Carbon Dioxide 19 L BUN Creatinine 1.7 H Glucose 170 H POC Glucose 152 H Lactic Acid Calcium Phosphorus Magnesium Direct Bilirubin ALT Alkaline Phosphatase Troponin T C-Reactive Protein Total Protein Albumin Triglycerides 160 H Cholesterol LDL Cholesterol Direct HDL Cholesterol 31 L Urine WBC (Auto) Urine Creatinine Urine Total Protein Vancomycin Trough Rheumatoid Factor Complement C4 Miscellaneous Test Crossmatch 09/04/16 09/04/16 09/04/16 11:34 17:46 23:29 WBC RBC Hgb Hct MCV MCH MCHC RDW Plt Count Lymph % (Auto) Carbon % (Auto) Lymph # Carbon # Baso # Seg Neutrophils % Seg Neuts % (Manual) Lymphocytes % (Manual) Monocytes % (Manual) Eosinophils % (Manual) Basophils % (Manual) Nucleated RBC % Seg Neutrophils # Seg Neutrophils # Man Lymphocytes # (Manual) Monocytes # (Manual) Eosinophils # (Manual) PT INR Fibrinogen dRVVT Confirm Interp Factor V Activity POC ABG pH POC ABG pCO2 POC ABG pO2 Sodium Potassium Chloride Carbon Dioxide BUN Creatinine Glucose POC Glucose 165 H 210 H 139 H Lactic Acid Calcium Phosphorus Magnesium Direct Bilirubin ALT Alkaline Phosphatase Troponin T C-Reactive Protein Total Protein Albumin Triglycerides Cholesterol LDL Cholesterol Direct HDL Cholesterol Urine WBC (Auto) Urine Creatinine Urine Total Protein Vancomycin Trough Rheumatoid Factor Complement C4 Miscellaneous Test Crossmatch 09/05/16 09/05/16 09/05/16 04:05 04:05 05:38 WBC RBC Hgb Hct MCV 76 L D MCH 23 L MCHC RDW 17.8 H Plt Count Lymph % (Auto) Carbon % (Auto) Lymph # Carbon # Baso # Seg Neutrophils % Seg Neuts % (Manual) Lymphocytes % (Manual) Monocytes % (Manual) Eosinophils % (Manual) Basophils % (Manual) Nucleated RBC % Seg Neutrophils # Seg Neutrophils # Man Lymphocytes # (Manual) Monocytes # (Manual) Eosinophils # (Manual) PT INR Fibrinogen dRVVT Confirm Interp Factor V Activity POC ABG pH POC ABG pCO2 POC ABG pO2 Sodium 134 L Potassium Chloride Carbon Dioxide 18 L BUN Creatinine 1.8 H Glucose 192 H POC Glucose 175 H Lactic Acid Calcium Phosphorus Magnesium Direct Bilirubin ALT Alkaline Phosphatase Troponin T C-Reactive Protein Total Protein Albumin Triglycerides Cholesterol LDL Cholesterol Direct HDL Cholesterol Urine WBC (Auto) Urine Creatinine Urine Total Protein Vancomycin Trough Rheumatoid Factor Complement C4 Miscellaneous Test Crossmatch 09/05/16 09/05/16 09/05/16 11:38 17:48 23:22 WBC RBC Hgb Hct MCV MCH MCHC RDW Plt Count Lymph % (Auto) Carbon % (Auto) Lymph # Carbon # Baso # Seg Neutrophils % Seg Neuts % (Manual) Lymphocytes % (Manual) Monocytes % (Manual) Eosinophils % (Manual) Basophils % (Manual) Nucleated RBC % Seg Neutrophils # Seg Neutrophils # Man Lymphocytes # (Manual) Monocytes # (Manual) Eosinophils # (Manual) PT INR Fibrinogen dRVVT Confirm Interp Factor V Activity POC ABG pH POC ABG pCO2 POC ABG pO2 Sodium Potassium Chloride Carbon Dioxide BUN Creatinine Glucose POC Glucose 164 H 186 H 195 H Lactic Acid Calcium Phosphorus Magnesium Direct Bilirubin ALT Alkaline Phosphatase Troponin T C-Reactive Protein Total Protein Albumin Triglycerides Cholesterol LDL Cholesterol Direct HDL Cholesterol Urine WBC (Auto) Urine Creatinine Urine Total Protein Vancomycin Trough Rheumatoid Factor Complement C4 Miscellaneous Test Crossmatch 09/06/16 09/06/16 09/06/16 04:12 05:59 07:32 WBC RBC Hgb Hct MCV MCH MCHC RDW Plt Count Lymph % (Auto) Carbon % (Auto) Lymph # Carbon # Baso # Seg Neutrophils % Seg Neuts % (Manual) Lymphocytes % (Manual) Monocytes % (Manual) Eosinophils % (Manual) Basophils % (Manual) Nucleated RBC % Seg Neutrophils # Seg Neutrophils # Man Lymphocytes # (Manual) Monocytes # (Manual) Eosinophils # (Manual) PT INR Fibrinogen dRVVT Confirm Interp Factor V Activity POC ABG pH 7.514 H POC ABG pCO2 29.1 L POC ABG pO2 72 L Sodium 133 L Potassium 3.4 L Chloride 94.9 L Carbon Dioxide 19 L BUN 30 H Creatinine 2.1 H Glucose 139 H POC Glucose 146 H Lactic Acid Calcium Phosphorus Magnesium Direct Bilirubin ALT Alkaline Phosphatase Troponin T C-Reactive Protein Total Protein Albumin Triglycerides Cholesterol LDL Cholesterol Direct HDL Cholesterol Urine WBC (Auto) Urine Creatinine Urine Total Protein Vancomycin Trough Rheumatoid Factor Complement C4 Miscellaneous Test Crossmatch 09/06/16 09/06/16 09/06/16 11:57 17:58 19:02 WBC RBC Hgb Hct MCV MCH MCHC RDW Plt Count Lymph % (Auto) Carbon % (Auto) Lymph # Carbon # Baso # Seg Neutrophils % Seg Neuts % (Manual) Lymphocytes % (Manual) Monocytes % (Manual) Eosinophils % (Manual) Basophils % (Manual) Nucleated RBC % Seg Neutrophils # Seg Neutrophils # Man Lymphocytes # (Manual) Monocytes # (Manual) Eosinophils # (Manual) PT INR Fibrinogen dRVVT Confirm Interp Factor V Activity POC ABG pH 7.465 H POC ABG pCO2 32.0 L POC ABG pO2 Sodium Potassium Chloride Carbon Dioxide BUN Creatinine Glucose POC Glucose 165 H 160 H Lactic Acid Calcium Phosphorus Magnesium Direct Bilirubin ALT Alkaline Phosphatase Troponin T C-Reactive Protein Total Protein Albumin Triglycerides Cholesterol LDL Cholesterol Direct HDL Cholesterol Urine WBC (Auto) Urine Creatinine Urine Total Protein Vancomycin Trough Rheumatoid Factor Complement C4 Miscellaneous Test Crossmatch 09/06/16 09/07/16 09/07/16 23:45 02:47 02:47 WBC RBC Hgb Hct MCV MCH MCHC RDW Plt Count Lymph % (Auto) Carbon % (Auto) Lymph # Carbon # Baso # Seg Neutrophils % Seg Neuts % (Manual) Lymphocytes % (Manual) Monocytes % (Manual) Eosinophils % (Manual) Basophils % (Manual) Nucleated RBC % Seg Neutrophils # Seg Neutrophils # Man Lymphocytes # (Manual) Monocytes # (Manual) Eosinophils # (Manual) PT INR Fibrinogen dRVVT Confirm Interp Factor V Activity POC ABG pH POC ABG pCO2 POC ABG pO2 Sodium Potassium Chloride Carbon Dioxide BUN Creatinine Glucose POC Glucose 204 H Lactic Acid Calcium Phosphorus Magnesium Direct Bilirubin ALT Alkaline Phosphatase Troponin T C-Reactive Protein Total Protein Albumin Triglycerides Cholesterol LDL Cholesterol Direct HDL Cholesterol Urine WBC (Auto) 68.0 H Urine Creatinine 106.1 H Urine Total Protein Vancomycin Trough Rheumatoid Factor Complement C4 Miscellaneous Test Crossmatch 09/07/16 09/07/16 09/07/16 04:50 06:19 06:39 WBC RBC Hgb Hct MCV MCH MCHC RDW Plt Count Lymph % (Auto) Carbon % (Auto) Lymph # Carbon # Baso # Seg Neutrophils % Seg Neuts % (Manual) Lymphocytes % (Manual) Monocytes % (Manual) Eosinophils % (Manual) Basophils % (Manual) Nucleated RBC % Seg Neutrophils # Seg Neutrophils # Man Lymphocytes # (Manual) Monocytes # (Manual) Eosinophils # (Manual) PT INR Fibrinogen dRVVT Confirm Interp Factor V Activity POC ABG pH 7.457 H POC ABG pCO2 32.1 L POC ABG pO2 76 L Sodium 132 L Potassium Chloride 94.7 L Carbon Dioxide BUN 53 H Creatinine 2.9 H Glucose 151 H POC Glucose 149 H Lactic Acid Calcium Phosphorus Magnesium Direct Bilirubin ALT Alkaline Phosphatase Troponin T C-Reactive Protein Total Protein Albumin Triglycerides Cholesterol LDL Cholesterol Direct HDL Cholesterol Urine WBC (Auto) Urine Creatinine Urine Total Protein Vancomycin Trough Rheumatoid Factor Complement C4 Miscellaneous Test Crossmatch 09/07/16 09/07/16 09/07/16 09:20 11:43 11:43 WBC 19.4 H RBC Hgb 8.3 L Hct 26.4 L D MCV 72 L D MCH 22 L MCHC RDW 17.9 H Plt Count Lymph % (Auto) 8.5 L Carbon % (Auto) Lymph # Carbon # 1.0 H Baso # Seg Neutrophils % 85.8 H Seg Neuts % (Manual) Lymphocytes % (Manual) Monocytes % (Manual) Eosinophils % (Manual) Basophils % (Manual) Nucleated RBC % Seg Neutrophils # 16.6 H Seg Neutrophils # Man Lymphocytes # (Manual) Monocytes # (Manual) Eosinophils # (Manual) PT INR Fibrinogen dRVVT Confirm Interp Factor V Activity POC ABG pH POC ABG pCO2 POC ABG pO2 Sodium 134 L Potassium Chloride 97.2 L Carbon Dioxide 20 L BUN 58 H Creatinine 2.9 H Glucose 147 H POC Glucose Lactic Acid Calcium Phosphorus 2.40 L Magnesium 2.40 H Direct Bilirubin ALT Alkaline Phosphatase Troponin T C-Reactive Protein Total Protein 5.8 L Albumin 2.2 L Triglycerides Cholesterol LDL Cholesterol Direct HDL Cholesterol Urine WBC (Auto) Urine Creatinine Urine Total Protein Vancomycin Trough Rheumatoid Factor Complement C4 58 H Miscellaneous Test Crossmatch 09/07/16 09/07/16 09/07/16 11:50 16:00 17:31 WBC RBC Hgb Hct MCV MCH MCHC RDW Plt Count Lymph % (Auto) Carbon % (Auto) Lymph # Carbon # Baso # Seg Neutrophils % Seg Neuts % (Manual) Lymphocytes % (Manual) Monocytes % (Manual) Eosinophils % (Manual) Basophils % (Manual) Nucleated RBC % Seg Neutrophils # Seg Neutrophils # Man Lymphocytes # (Manual) Monocytes # (Manual) Eosinophils # (Manual) PT INR Fibrinogen dRVVT Confirm Interp Factor V Activity POC ABG pH POC ABG pCO2 POC ABG pO2 158 H Sodium Potassium Chloride Carbon Dioxide BUN Creatinine Glucose POC Glucose 175 H Lactic Acid Calcium Phosphorus Magnesium Direct Bilirubin ALT Alkaline Phosphatase Troponin T C-Reactive Protein Total Protein Albumin Triglycerides Cholesterol LDL Cholesterol Direct HDL Cholesterol Urine WBC (Auto) Urine Creatinine 66.3 H Urine Total Protein Vancomycin Trough Rheumatoid Factor Complement C4 Miscellaneous Test Crossmatch 09/07/16 09/08/16 09/08/16 23:50 05:46 06:18 WBC 17.8 H RBC 3.58 L Hgb 8.1 L Hct 25.5 L MCV 71 L MCH 23 L MCHC RDW 18.4 H Plt Count Lymph % (Auto) Carbon % (Auto) Lymph # Carbon # Baso # Seg Neutrophils % Seg Neuts % (Manual) 92.0 H Lymphocytes % (Manual) 6.0 L Monocytes % (Manual) Eosinophils % (Manual) Basophils % (Manual) Nucleated RBC % Seg Neutrophils # Seg Neutrophils # Man 16.4 H Lymphocytes # (Manual) 1.1 L Monocytes # (Manual) Eosinophils # (Manual) PT INR Fibrinogen dRVVT Confirm Interp Factor V Activity POC ABG pH POC ABG pCO2 34.3 L POC ABG pO2 71 L Sodium Potassium Chloride Carbon Dioxide BUN Creatinine Glucose POC Glucose 216 H Lactic Acid Calcium Phosphorus Magnesium Direct Bilirubin ALT Alkaline Phosphatase Troponin T C-Reactive Protein Total Protein Albumin Triglycerides Cholesterol LDL Cholesterol Direct HDL Cholesterol Urine WBC (Auto) Urine Creatinine Urine Total Protein Vancomycin Trough Rheumatoid Factor Complement C4 Miscellaneous Test Crossmatch 09/08/16 09/08/16 09/08/16 06:18 06:51 10:55 WBC RBC Hgb Hct MCV MCH MCHC RDW Plt Count Lymph % (Auto) Carbon % (Auto) Lymph # Carbon # Baso # Seg Neutrophils % Seg Neuts % (Manual) Lymphocytes % (Manual) Monocytes % (Manual) Eosinophils % (Manual) Basophils % (Manual) Nucleated RBC % Seg Neutrophils # Seg Neutrophils # Man Lymphocytes # (Manual) Monocytes # (Manual) Eosinophils # (Manual) PT INR Fibrinogen dRVVT Confirm Interp Factor V Activity POC ABG pH POC ABG pCO2 POC ABG pO2 Sodium 133 L Potassium Chloride 96.9 L Carbon Dioxide 20 L BUN 63 H Creatinine 2.7 H Glucose 195 H POC Glucose 204 H 169 H Lactic Acid Calcium Phosphorus Magnesium Direct Bilirubin ALT Alkaline Phosphatase Troponin T C-Reactive Protein Total Protein Albumin Triglycerides Cholesterol LDL Cholesterol Direct HDL Cholesterol Urine WBC (Auto) Urine Creatinine Urine Total Protein Vancomycin Trough Rheumatoid Factor Complement C4 Miscellaneous Test Crossmatch 09/08/16 09/08/16 09/08/16 11:48 11:48 11:48 WBC RBC Hgb Hct MCV MCH MCHC RDW Plt Count Lymph % (Auto) Carbon % (Auto) Lymph # Carbon # Baso # Seg Neutrophils % Seg Neuts % (Manual) Lymphocytes % (Manual) Monocytes % (Manual) Eosinophils % (Manual) Basophils % (Manual) Nucleated RBC % Seg Neutrophils # Seg Neutrophils # Man Lymphocytes # (Manual) Monocytes # (Manual) Eosinophils # (Manual) PT INR Fibrinogen 750 H dRVVT Confirm Interp Factor V Activity POC ABG pH POC ABG pCO2 POC ABG pO2 Sodium Potassium Chloride Carbon Dioxide BUN Creatinine Glucose POC Glucose Lactic Acid Calcium Phosphorus Magnesium Direct Bilirubin ALT Alkaline Phosphatase Troponin T C-Reactive Protein 15.70 H Total Protein Albumin Triglycerides Cholesterol LDL Cholesterol Direct HDL Cholesterol Urine WBC (Auto) Urine Creatinine Urine Total Protein Vancomycin Trough Rheumatoid Factor 24 H Complement C4 Miscellaneous Test Crossmatch 09/08/16 09/08/16 09/09/16 15:35 18:25 00:24 WBC RBC Hgb Hct MCV MCH MCHC RDW Plt Count Lymph % (Auto) Carbon % (Auto) Lymph # Carbon # Baso # Seg Neutrophils % Seg Neuts % (Manual) Lymphocytes % (Manual) Monocytes % (Manual) Eosinophils % (Manual) Basophils % (Manual) Nucleated RBC % Seg Neutrophils # Seg Neutrophils # Man Lymphocytes # (Manual) Monocytes # (Manual) Eosinophils # (Manual) PT INR Fibrinogen dRVVT Confirm Interp Factor V Activity 182 H POC ABG pH POC ABG pCO2 POC ABG pO2 Sodium Potassium Chloride Carbon Dioxide BUN Creatinine Glucose POC Glucose 184 H 216 H Lactic Acid Calcium Phosphorus Magnesium Direct Bilirubin ALT Alkaline Phosphatase Troponin T C-Reactive Protein Total Protein Albumin Triglycerides Cholesterol LDL Cholesterol Direct HDL Cholesterol Urine WBC (Auto) Urine Creatinine Urine Total Protein Vancomycin Trough Rheumatoid Factor Complement C4 Miscellaneous Test Crossmatch 09/09/16 09/09/16 09/09/16 03:00 03:00 04:04 WBC 27.9 H RBC Hgb 8.7 L Hct 28.1 L MCV 72 L MCH 22 L MCHC RDW 18.4 H Plt Count 485 H Lymph % (Auto) Carbon % (Auto) Lymph # Carbon # Baso # Seg Neutrophils % Seg Neuts % (Manual) 77.0 H Lymphocytes % (Manual) 9.0 L Monocytes % (Manual) Eosinophils % (Manual) Basophils % (Manual) Nucleated RBC % Seg Neutrophils # Seg Neutrophils # Man 21.5 H Lymphocytes # (Manual) Monocytes # (Manual) 2.0 H Eosinophils # (Manual) PT INR Fibrinogen dRVVT Confirm Interp Factor V Activity POC ABG pH POC ABG pCO2 POC ABG pO2 121 H Sodium 135 L Potassium Chloride 96.3 L Carbon Dioxide 21 L BUN 83 H Creatinine 3.0 H Glucose 135 H POC Glucose Lactic Acid Calcium Phosphorus Magnesium Direct Bilirubin ALT Alkaline Phosphatase Troponin T C-Reactive Protein Total Protein Albumin Triglycerides Cholesterol LDL Cholesterol Direct HDL Cholesterol Urine WBC (Auto) Urine Creatinine Urine Total Protein Vancomycin Trough Rheumatoid Factor Complement C4 Miscellaneous Test Crossmatch 09/09/16 09/09/16 09/09/16 05:41 11:55 14:13 WBC RBC Hgb Hct MCV MCH MCHC RDW Plt Count Lymph % (Auto) Carbon % (Auto) Lymph # Carbon # Baso # Seg Neutrophils % Seg Neuts % (Manual) Lymphocytes % (Manual) Monocytes % (Manual) Eosinophils % (Manual) Basophils % (Manual) Nucleated RBC % Seg Neutrophils # Seg Neutrophils # Man Lymphocytes # (Manual) Monocytes # (Manual) Eosinophils # (Manual) PT INR Fibrinogen dRVVT Confirm Interp Factor V Activity POC ABG pH POC ABG pCO2 POC ABG pO2 Sodium Potassium Chloride Carbon Dioxide BUN Creatinine Glucose POC Glucose 155 H 186 H Lactic Acid Calcium Phosphorus Magnesium Direct Bilirubin ALT Alkaline Phosphatase Troponin T C-Reactive Protein Total Protein Albumin Triglycerides Cholesterol LDL Cholesterol Direct HDL Cholesterol Urine WBC (Auto) 25.0 H Urine Creatinine Urine Total Protein Vancomycin Trough Rheumatoid Factor Complement C4 Miscellaneous Test Crossmatch 09/09/16 09/09/16 09/10/16 17:33 23:13 05:09 WBC RBC Hgb Hct MCV MCH MCHC RDW Plt Count Lymph % (Auto) Carbon % (Auto) Lymph # Carbon # Baso # Seg Neutrophils % Seg Neuts % (Manual) Lymphocytes % (Manual) Monocytes % (Manual) Eosinophils % (Manual) Basophils % (Manual) Nucleated RBC % Seg Neutrophils # Seg Neutrophils # Man Lymphocytes # (Manual) Monocytes # (Manual) Eosinophils # (Manual) PT INR Fibrinogen dRVVT Confirm Interp Factor V Activity POC ABG pH POC ABG pCO2 POC ABG pO2 74 L Sodium Potassium Chloride Carbon Dioxide BUN Creatinine Glucose POC Glucose 211 H 215 H Lactic Acid Calcium Phosphorus Magnesium Direct Bilirubin ALT Alkaline Phosphatase Troponin T C-Reactive Protein Total Protein Albumin Triglycerides Cholesterol LDL Cholesterol Direct HDL Cholesterol Urine WBC (Auto) Urine Creatinine Urine Total Protein Vancomycin Trough Rheumatoid Factor Complement C4 Miscellaneous Test Crossmatch 09/10/16 09/10/16 09/10/16 05:17 05:17 11:31 WBC 15.8 H RBC 3.25 L Hgb 7.3 L Hct 22.9 L MCV 71 L MCH 23 L MCHC RDW 18.4 H Plt Count Lymph % (Auto) Carbon % (Auto) Lymph # Carbon # Baso # Seg Neutrophils % Seg Neuts % (Manual) 91.0 H Lymphocytes % (Manual) 4.0 L Monocytes % (Manual) Eosinophils % (Manual) Basophils % (Manual) Nucleated RBC % Seg Neutrophils # Seg Neutrophils # Man 14.4 H Lymphocytes # (Manual) 0.6 L Monocytes # (Manual) Eosinophils # (Manual) PT INR Fibrinogen dRVVT Confirm Interp Factor V Activity POC ABG pH POC ABG pCO2 POC ABG pO2 Sodium Potassium Chloride Carbon Dioxide 21 L BUN 93 H Creatinine 2.9 H Glucose 146 H POC Glucose 188 H Lactic Acid Calcium 8.1 L Phosphorus Magnesium Direct Bilirubin ALT Alkaline Phosphatase Troponin T C-Reactive Protein Total Protein Albumin Triglycerides Cholesterol LDL Cholesterol Direct HDL Cholesterol Urine WBC (Auto) Urine Creatinine Urine Total Protein Vancomycin Trough Rheumatoid Factor Complement C4 Miscellaneous Test Crossmatch 09/10/16 09/10/16 09/10/16 13:17 17:20 23:32 WBC RBC Hgb Hct MCV MCH MCHC RDW Plt Count Lymph % (Auto) Carbon % (Auto) Lymph # [place] # Baso # Seg Neutrophils % Seg Neuts % (Manual) Lymphocytes % (Manual) Monocytes % (Manual) Eosinophils % (Manual) Basophils % (Manual) Nucleated RBC % Seg Neutrophils # Seg Neutrophils # Man Lymphocytes # (Manual) Monocytes # (Manual) Eosinophils # (Manual) PT INR Fibrinogen dRVVT Confirm Interp Factor V Activity POC ABG pH POC ABG pCO2 POC ABG pO2 Sodium Potassium Chloride Carbon Dioxide BUN Creatinine Glucose POC Glucose 199 H 186 H Lactic Acid Calcium Phosphorus Magnesium Direct Bilirubin ALT Alkaline Phosphatase Troponin T C-Reactive Protein Total Protein Albumin Triglycerides Cholesterol LDL Cholesterol Direct HDL Cholesterol Urine WBC (Auto) Urine Creatinine Urine Total Protein Vancomycin Trough Rheumatoid Factor Complement C4 Miscellaneous Test Crossmatch See Detail 09/11/16 09/11/16 09/11/16 05:10 05:10 05:17 WBC 28.4 H RBC Hgb 9.2 L Hct 29.3 L D MCV 73 L MCH 23 L MCHC RDW 18.9 H Plt Count 452 H Lymph % (Auto) Carbon % (Auto) Lymph # Carbon # Baso # Seg Neutrophils % Seg Neuts % (Manual) 89.5 H Lymphocytes % (Manual) 2.0 L Monocytes % (Manual) Eosinophils % (Manual) Basophils % (Manual) Nucleated RBC % Seg Neutrophils # Seg Neutrophils # Man 25.4 H Lymphocytes # (Manual) 0.6 L Monocytes # (Manual) 1.3 H Eosinophils # (Manual) PT INR Fibrinogen dRVVT Confirm Interp Factor V Activity POC ABG pH POC ABG pCO2 POC ABG pO2 Sodium 136 L Potassium Chloride Carbon Dioxide 18 L BUN 107 H Creatinine 2.6 H Glucose 187 H POC Glucose 230 H Lactic Acid Calcium 8.3 L Phosphorus Magnesium Direct Bilirubin ALT Alkaline Phosphatase Troponin T C-Reactive Protein Total Protein Albumin Triglycerides Cholesterol LDL Cholesterol Direct HDL Cholesterol Urine WBC (Auto) Urine Creatinine Urine Total Protein Vancomycin Trough Rheumatoid Factor Complement C4 Miscellaneous Test Crossmatch 09/11/16 09/11/16 09/11/16 05:55 12:02 17:32 WBC RBC Hgb Hct MCV MCH MCHC RDW Plt Count Lymph % (Auto) Carbon % (Auto) Lymph # [place] # Baso # Seg Neutrophils % Seg Neuts % (Manual) Lymphocytes % (Manual) Monocytes % (Manual) Eosinophils % (Manual) Basophils % (Manual) Nucleated RBC % Seg Neutrophils # Seg Neutrophils # Man Lymphocytes # (Manual) Monocytes # (Manual) Eosinophils # (Manual) PT INR Fibrinogen dRVVT Confirm Interp Factor V Activity POC ABG pH POC ABG pCO2 33.8 L POC ABG pO2 Sodium Potassium Chloride Carbon Dioxide BUN Creatinine Glucose POC Glucose 191 H 239 H Lactic Acid Calcium Phosphorus Magnesium Direct Bilirubin ALT Alkaline Phosphatase Troponin T C-Reactive Protein Total Protein Albumin Triglycerides Cholesterol LDL Cholesterol Direct HDL Cholesterol Urine WBC (Auto) Urine Creatinine Urine Total Protein Vancomycin Trough Rheumatoid Factor Complement C4 Miscellaneous Test Crossmatch 09/11/16 09/12/16 09/12/16 23:52 05:09 05:32 WBC RBC Hgb Hct MCV MCH MCHC RDW Plt Count Lymph % (Auto) Carbon % (Auto) Lymph # [place] # Baso # Seg Neutrophils % Seg Neuts % (Manual) Lymphocytes % (Manual) Monocytes % (Manual) Eosinophils % (Manual) Basophils % (Manual) Nucleated RBC % Seg Neutrophils # Seg Neutrophils # Man Lymphocytes # (Manual) Monocytes # (Manual) Eosinophils # (Manual) PT INR Fibrinogen dRVVT Confirm Interp Factor V Activity POC ABG pH POC ABG pCO2 34.6 L POC ABG pO2 Sodium Potassium Chloride Carbon Dioxide BUN Creatinine Glucose POC Glucose 265 H 184 H Lactic Acid Calcium Phosphorus Magnesium Direct Bilirubin ALT Alkaline Phosphatase Troponin T C-Reactive Protein Total Protein Albumin Triglycerides Cholesterol LDL Cholesterol Direct HDL Cholesterol Urine WBC (Auto) Urine Creatinine Urine Total Protein Vancomycin Trough Rheumatoid Factor Complement C4 Miscellaneous Test Crossmatch 09/12/16 09/12/16 09/12/16 06:45 06:45 07:22 WBC 31.7 H RBC 3.54 L Hgb 8.3 L Hct 25.9 L MCV 73 L MCH 23 L MCHC RDW 18.9 H Plt Count Lymph % (Auto) [place] % (Auto) Lymph # [place] # Baso # Seg Neutrophils % Seg Neuts % (Manual) 88.5 H Lymphocytes % (Manual) 4.5 L Monocytes % (Manual) Eosinophils % (Manual) Basophils % (Manual) Nucleated RBC % Seg Neutrophils # Seg Neutrophils # Man 28.1 H Lymphocytes # (Manual) Monocytes # (Manual) 1.0 H Eosinophils # (Manual) PT INR Fibrinogen dRVVT Confirm Interp Factor V Activity POC ABG pH POC ABG pCO2 POC ABG pO2 Sodium Potassium Chloride Carbon Dioxide 20 L BUN 115 H Creatinine 2.7 H Glucose 165 H POC Glucose Lactic Acid Calcium 8.0 L Phosphorus Magnesium Direct Bilirubin ALT Alkaline Phosphatase Troponin T C-Reactive Protein Total Protein Albumin Triglycerides 217 H Cholesterol LDL Cholesterol Direct HDL Cholesterol Urine WBC (Auto) Urine Creatinine Urine Total Protein Vancomycin Trough Rheumatoid Factor Complement C4 Miscellaneous Test Crossmatch 09/12/16 09/12/16 09/12/16 07:22 09:59 12:21 WBC RBC Hgb Hct MCV MCH MCHC RDW Plt Count Lymph % (Auto) [place] % (Auto) Lymph # [place] # Baso # Seg Neutrophils % Seg Neuts % (Manual) Lymphocytes % (Manual) Monocytes % (Manual) Eosinophils % (Manual) Basophils % (Manual) Nucleated RBC % Seg Neutrophils # Seg Neutrophils # Man Lymphocytes # (Manual) Monocytes # (Manual) Eosinophils # (Manual) PT INR Fibrinogen dRVVT Confirm Interp Positive H Factor V Activity POC ABG pH POC ABG pCO2 POC ABG pO2 Sodium Potassium Chloride Carbon Dioxide BUN Creatinine Glucose POC Glucose 224 H Lactic Acid Calcium Phosphorus Magnesium Direct Bilirubin ALT Alkaline Phosphatase Troponin T C-Reactive Protein 1.70 H Total Protein Albumin Triglycerides Cholesterol LDL Cholesterol Direct HDL Cholesterol Urine WBC (Auto) Urine Creatinine Urine Total Protein Vancomycin Trough Rheumatoid Factor Complement C4 Miscellaneous Test Crossmatch 09/12/16 09/12/16 09/13/16 16:51 23:28 04:00 WBC 45.0 H* RBC Hgb 9.4 L Hct MCV 75 L MCH 23 L MCHC RDW 19.0 H Plt Count 470 H Lymph % (Auto) [place] % (Auto) Lymph # [place] # Baso # Seg Neutrophils % Seg Neuts % (Manual) 89.0 H Lymphocytes % (Manual) 5.0 L Monocytes % (Manual) Eosinophils % (Manual) Basophils % (Manual) Nucleated RBC % Seg Neutrophils # Seg Neutrophils # Man 40.1 H Lymphocytes # (Manual) Monocytes # (Manual) Eosinophils # (Manual) PT INR Fibrinogen dRVVT Confirm Interp Factor V Activity POC ABG pH POC ABG pCO2 POC ABG pO2 Sodium Potassium Chloride Carbon Dioxide BUN Creatinine Glucose POC Glucose 169 H 150 H Lactic Acid Calcium Phosphorus Magnesium Direct Bilirubin ALT Alkaline Phosphatase Troponin T C-Reactive Protein Total Protein Albumin Triglycerides Cholesterol LDL Cholesterol Direct HDL Cholesterol Urine WBC (Auto) Urine Creatinine Urine Total Protein Vancomycin Trough Rheumatoid Factor Complement C4 Miscellaneous Test Crossmatch 09/13/16 09/13/16 09/13/16 04:00 11:26 17:31 WBC RBC Hgb Hct MCV MCH MCHC RDW Plt Count Lymph % (Auto) Carbon % (Auto) Lymph # [place] # Baso # Seg Neutrophils % Seg Neuts % (Manual) Lymphocytes % (Manual) Monocytes % (Manual) Eosinophils % (Manual) Basophils % (Manual) Nucleated RBC % Seg Neutrophils # Seg Neutrophils # Man Lymphocytes # (Manual) Monocytes # (Manual) Eosinophils # (Manual) PT INR Fibrinogen dRVVT Confirm Interp Factor V Activity POC ABG pH POC ABG pCO2 POC ABG pO2 Sodium Potassium Chloride Carbon Dioxide 20 L BUN 116 H Creatinine 3.0 H Glucose 172 H POC Glucose 140 H 183 H Lactic Acid Calcium Phosphorus Magnesium Direct Bilirubin ALT Alkaline Phosphatase Troponin T C-Reactive Protein Total Protein 6.2 L Albumin 2.9 L Triglycerides Cholesterol LDL Cholesterol Direct HDL Cholesterol Urine WBC (Auto) Urine Creatinine Urine Total Protein Vancomycin Trough Rheumatoid Factor Complement C4 Miscellaneous Test Crossmatch 09/13/16 09/14/16 09/14/16 23:23 04:06 04:07 WBC 29.4 H RBC Hgb 8.9 L Hct 27.3 L MCV 75 L MCH 24 L MCHC RDW 19.1 H Plt Count Lymph % (Auto) Carbon % (Auto) Lymph # [place] # Baso # Seg Neutrophils % Seg Neuts % (Manual) 84.0 H Lymphocytes % (Manual) 6.0 L Monocytes % (Manual) 9.0 H Eosinophils % (Manual) Basophils % (Manual) Nucleated RBC % Seg Neutrophils # Seg Neutrophils # Man 24.7 H Lymphocytes # (Manual) Monocytes # (Manual) 2.6 H Eosinophils # (Manual) PT INR Fibrinogen dRVVT Confirm Interp Factor V Activity POC ABG pH 7.342 L POC ABG pCO2 POC ABG pO2 116 H Sodium Potassium Chloride Carbon Dioxide BUN Creatinine Glucose POC Glucose 154 H Lactic Acid Calcium Phosphorus Magnesium Direct Bilirubin ALT Alkaline Phosphatase Troponin T C-Reactive Protein Total Protein Albumin Triglycerides Cholesterol LDL Cholesterol Direct HDL Cholesterol Urine WBC (Auto) Urine Creatinine Urine Total Protein Vancomycin Trough Rheumatoid Factor Complement C4 Miscellaneous Test Crossmatch 09/14/16 09/14/16 09/14/16 04:07 05:29 12:19 WBC RBC Hgb Hct MCV MCH MCHC RDW Plt Count Lymph % (Auto) Carbon % (Auto) Lymph # [place] # Baso # Seg Neutrophils % Seg Neuts % (Manual) Lymphocytes % (Manual) Monocytes % (Manual) Eosinophils % (Manual) Basophils % (Manual) Nucleated RBC % Seg Neutrophils # Seg Neutrophils # Man Lymphocytes # (Manual) Monocytes # (Manual) Eosinophils # (Manual) PT INR Fibrinogen dRVVT Confirm Interp Factor V Activity POC ABG pH POC ABG pCO2 POC ABG pO2 Sodium 136 L Potassium Chloride Carbon Dioxide 18 L BUN 121 H Creatinine 2.8 H Glucose 214 H POC Glucose 239 H 181 H Lactic Acid Calcium Phosphorus Magnesium Direct Bilirubin ALT Alkaline Phosphatase Troponin T C-Reactive Protein Total Protein Albumin Triglycerides Cholesterol LDL Cholesterol Direct HDL Cholesterol Urine WBC (Auto) Urine Creatinine Urine Total Protein Vancomycin Trough Rheumatoid Factor Complement C4 Miscellaneous Test Crossmatch 09/14/16 09/14/16 09/15/16 18:12 23:37 05:00 WBC 26.1 H RBC 3.05 L Hgb 7.2 L Hct 22.9 L MCV 75 L MCH 24 L MCHC RDW 19.0 H Plt Count Lymph % (Auto) Carbon % (Auto) Lymph # [place] # Baso # Seg Neutrophils % Seg Neuts % (Manual) Lymphocytes % (Manual) Monocytes % (Manual) Eosinophils % (Manual) Basophils % (Manual) Nucleated RBC % Seg Neutrophils # Seg Neutrophils # Man Lymphocytes # (Manual) Monocytes # (Manual) Eosinophils # (Manual) PT INR Fibrinogen dRVVT Confirm Interp Factor V Activity POC ABG pH POC ABG pCO2 POC ABG pO2 Sodium Potassium Chloride Carbon Dioxide BUN Creatinine Glucose POC Glucose 266 H 154 H Lactic Acid Calcium Phosphorus Magnesium Direct Bilirubin ALT Alkaline Phosphatase Troponin T C-Reactive Protein Total Protein Albumin Triglycerides Cholesterol LDL Cholesterol Direct HDL Cholesterol Urine WBC (Auto) Urine Creatinine Urine Total Protein Vancomycin Trough Rheumatoid Factor Complement C4 Miscellaneous Test Crossmatch 09/15/16 09/15/16 09/15/16 05:00 05:17 12:45 WBC RBC Hgb Hct MCV MCH MCHC RDW Plt Count Lymph % (Auto) Carbon % (Auto) Lymph # [place] # Baso # Seg Neutrophils % Seg Neuts % (Manual) Lymphocytes % (Manual) Monocytes % (Manual) Eosinophils % (Manual) Basophils % (Manual) Nucleated RBC % Seg Neutrophils # Seg Neutrophils # Man Lymphocytes # (Manual) Monocytes # (Manual) Eosinophils # (Manual) PT INR Fibrinogen dRVVT Confirm Interp Factor V Activity POC ABG pH POC ABG pCO2 POC ABG pO2 Sodium Potassium 5.2 H Chloride Carbon Dioxide 18 L BUN 139 H Creatinine 3.7 H Glucose 227 H POC Glucose 226 H 244 H Lactic Acid Calcium 8.3 L Phosphorus Magnesium Direct Bilirubin ALT Alkaline Phosphatase Troponin T C-Reactive Protein Total Protein Albumin Triglycerides Cholesterol LDL Cholesterol Direct HDL Cholesterol Urine WBC (Auto) Urine Creatinine Urine Total Protein Vancomycin Trough Rheumatoid Factor Complement C4 Miscellaneous Test Crossmatch 09/15/16 09/15/16 09/15/16 14:32 17:33 23:35 WBC RBC Hgb Hct MCV MCH MCHC RDW Plt Count Lymph % (Auto) [place] % (Auto) Lymph # [place] # Baso # Seg Neutrophils % Seg Neuts % (Manual) Lymphocytes % (Manual) Monocytes % (Manual) Eosinophils % (Manual) Basophils % (Manual) Nucleated RBC % Seg Neutrophils # Seg Neutrophils # Man Lymphocytes # (Manual) Monocytes # (Manual) Eosinophils # (Manual) PT INR Fibrinogen dRVVT Confirm Interp Factor V Activity POC ABG pH POC ABG pCO2 27.7 L POC ABG pO2 120 H Sodium Potassium Chloride Carbon Dioxide BUN Creatinine Glucose POC Glucose 232 H 167 H Lactic Acid Calcium Phosphorus Magnesium Direct Bilirubin ALT Alkaline Phosphatase Troponin T C-Reactive Protein Total Protein Albumin Triglycerides Cholesterol LDL Cholesterol Direct HDL Cholesterol Urine WBC (Auto) Urine Creatinine Urine Total Protein Vancomycin Trough Rheumatoid Factor Complement C4 Miscellaneous Test Crossmatch 09/16/16 09/16/16 09/16/16 03:58 10:27 10:27 WBC 19.0 H RBC 2.77 L Hgb 6.5 L Hct 20.9 L MCV 76 L MCH 23 L MCHC RDW 19.3 H Plt Count Lymph % (Auto) 11.0 L Carbon % (Auto) Lymph # Carbon # 1.1 H Baso # Seg Neutrophils % 82.5 H Seg Neuts % (Manual) Lymphocytes % (Manual) Monocytes % (Manual) Eosinophils % (Manual) Basophils % (Manual) Nucleated RBC % Seg Neutrophils # 15.7 H Seg Neutrophils # Man Lymphocytes # (Manual) Monocytes # (Manual) Eosinophils # (Manual) PT INR Fibrinogen dRVVT Confirm Interp Factor V Activity POC ABG pH POC ABG pCO2 POC ABG pO2 Sodium Potassium Chloride 109.3 H Carbon Dioxide 18 L BUN 139 H Creatinine 4.1 H Glucose 144 H POC Glucose 146 H Lactic Acid Calcium 8.1 L Phosphorus Magnesium Direct Bilirubin ALT Alkaline Phosphatase Troponin T C-Reactive Protein Total Protein Albumin Triglycerides Cholesterol LDL Cholesterol Direct HDL Cholesterol Urine WBC (Auto) Urine Creatinine Urine Total Protein Vancomycin Trough Rheumatoid Factor Complement C4 Miscellaneous Test Crossmatch 09/16/16 09/16/16 09/16/16 12:04 12:10 13:55 WBC RBC Hgb Hct MCV MCH MCHC RDW Plt Count Lymph % (Auto) Carbon % (Auto) Lymph # [place] # Baso # Seg Neutrophils % Seg Neuts % (Manual) Lymphocytes % (Manual) Monocytes % (Manual) Eosinophils % (Manual) Basophils % (Manual) Nucleated RBC % Seg Neutrophils # Seg Neutrophils # Man Lymphocytes # (Manual) Monocytes # (Manual) Eosinophils # (Manual) PT INR Fibrinogen dRVVT Confirm Interp Factor V Activity POC ABG pH POC ABG pCO2 32.9 L POC ABG pO2 Sodium Potassium Chloride Carbon Dioxide BUN Creatinine Glucose POC Glucose 185 H Lactic Acid Calcium Phosphorus Magnesium Direct Bilirubin ALT Alkaline Phosphatase Troponin T C-Reactive Protein Total Protein Albumin Triglycerides Cholesterol LDL Cholesterol Direct HDL Cholesterol Urine WBC (Auto) Urine Creatinine Urine Total Protein Vancomycin Trough Rheumatoid Factor Complement C4 Miscellaneous Test Crossmatch See Detail 09/16/16 09/16/16 09/16/16 17:55 19:19 23:48 WBC RBC Hgb Hct MCV MCH MCHC RDW Plt Count Lymph % (Auto) Carbon % (Auto) Lymph # [place] # Baso # Seg Neutrophils % Seg Neuts % (Manual) Lymphocytes % (Manual) Monocytes % (Manual) Eosinophils % (Manual) Basophils % (Manual) Nucleated RBC % Seg Neutrophils # Seg Neutrophils # Man Lymphocytes # (Manual) Monocytes # (Manual) Eosinophils # (Manual) PT INR Fibrinogen dRVVT Confirm Interp Factor V Activity POC ABG pH POC ABG pCO2 POC ABG pO2 Sodium Potassium Chloride Carbon Dioxide BUN Creatinine Glucose POC Glucose 222 H 107 H Lactic Acid Calcium Phosphorus Magnesium Direct Bilirubin ALT Alkaline Phosphatase Troponin T C-Reactive Protein Total Protein Albumin Triglycerides Cholesterol LDL Cholesterol Direct HDL Cholesterol Urine WBC (Auto) Urine Creatinine 47.4 H Urine Total Protein 16 H Vancomycin Trough Rheumatoid Factor Complement C4 Miscellaneous Test Crossmatch 09/17/16 09/17/16 09/17/16 03:45 03:45 04:55 WBC 19.6 H RBC 3.41 L Hgb 8.5 L Hct 26.7 L MCV 78 L MCH 25 L MCHC RDW 19.9 H Plt Count Lymph % (Auto) 9.3 L Carbon % (Auto) Lymph # Carbon # 1.2 H Baso # Seg Neutrophils % 83.9 H Seg Neuts % (Manual) Lymphocytes % (Manual) Monocytes % (Manual) Eosinophils % (Manual) Basophils % (Manual) Nucleated RBC % Seg Neutrophils # 16.4 H Seg Neutrophils # Man Lymphocytes # (Manual) Monocytes # (Manual) Eosinophils # (Manual) PT INR Fibrinogen dRVVT Confirm Interp Factor V Activity POC ABG pH POC ABG pCO2 POC ABG pO2 Sodium 146 H Potassium 5.1 H Chloride 110.9 H Carbon Dioxide 16 L BUN 146 H Creatinine 4.0 H Glucose 108 H POC Glucose 133 H Lactic Acid Calcium Phosphorus Magnesium 3.00 H Direct Bilirubin ALT Alkaline Phosphatase Troponin T C-Reactive Protein Total Protein Albumin Triglycerides Cholesterol LDL Cholesterol Direct HDL Cholesterol Urine WBC (Auto) Urine Creatinine Urine Total Protein Vancomycin Trough Rheumatoid Factor Complement C4 Miscellaneous Test Crossmatch 09/17/16 09/17/16 09/17/16 11:15 17:33 23:47 WBC RBC Hgb Hct MCV MCH MCHC RDW Plt Count Lymph % (Auto) [place] % (Auto) Lymph # Carbon # Baso # Seg Neutrophils % Seg Neuts % (Manual) Lymphocytes % (Manual) Monocytes % (Manual) Eosinophils % (Manual) Basophils % (Manual) Nucleated RBC % Seg Neutrophils # Seg Neutrophils # Man Lymphocytes # (Manual) Monocytes # (Manual) Eosinophils # (Manual) PT INR Fibrinogen dRVVT Confirm Interp Factor V Activity POC ABG pH POC ABG pCO2 POC ABG pO2 Sodium Potassium Chloride Carbon Dioxide BUN Creatinine Glucose POC Glucose 176 H 246 H 148 H Lactic Acid Calcium Phosphorus Magnesium Direct Bilirubin ALT Alkaline Phosphatase Troponin T C-Reactive Protein Total Protein Albumin Triglycerides Cholesterol LDL Cholesterol Direct HDL Cholesterol Urine WBC (Auto) Urine Creatinine Urine Total Protein Vancomycin Trough Rheumatoid Factor Complement C4 Miscellaneous Test Crossmatch 09/18/16 09/18/16 09/18/16 05:33 08:31 08:31 WBC 18.0 H RBC 3.17 L Hgb 9.0 L Hct 25.7 L MCV MCH MCHC 35 H RDW 20.4 H Plt Count Lymph % (Auto) Carbon % (Auto) Lymph # [place] # Baso # Seg Neutrophils % Seg Neuts % (Manual) Lymphocytes % (Manual) Monocytes % (Manual) Eosinophils % (Manual) Basophils % (Manual) Nucleated RBC % Seg Neutrophils # Seg Neutrophils # Man Lymphocytes # (Manual) Monocytes # (Manual) Eosinophils # (Manual) PT INR Fibrinogen dRVVT Confirm Interp Factor V Activity POC ABG pH POC ABG pCO2 POC ABG pO2 Sodium Potassium Chloride Carbon Dioxide 15 L BUN 124 H Creatinine 3.8 H Glucose POC Glucose 120 H Lactic Acid Calcium 8.1 L Phosphorus Magnesium Direct Bilirubin ALT Alkaline Phosphatase Troponin T C-Reactive Protein Total Protein Albumin Triglycerides Cholesterol LDL Cholesterol Direct HDL Cholesterol Urine WBC (Auto) Urine Creatinine Urine Total Protein Vancomycin Trough Rheumatoid Factor Complement C4 Miscellaneous Test Crossmatch 09/18/16 09/18/16 09/18/16 12:03 15:34 17:50 WBC RBC Hgb Hct MCV MCH MCHC RDW Plt Count Lymph % (Auto) [place] % (Auto) Lymph # [place] # Baso # Seg Neutrophils % Seg Neuts % (Manual) Lymphocytes % (Manual) Monocytes % (Manual) Eosinophils % (Manual) Basophils % (Manual) Nucleated RBC % Seg Neutrophils # Seg Neutrophils # Man Lymphocytes # (Manual) Monocytes # (Manual) Eosinophils # (Manual) PT INR Fibrinogen dRVVT Confirm Interp Factor V Activity POC ABG pH POC ABG pCO2 25.7 L POC ABG pO2 66 L Sodium Potassium Chloride Carbon Dioxide BUN Creatinine Glucose POC Glucose 156 H 220 H Lactic Acid Calcium Phosphorus Magnesium Direct Bilirubin ALT Alkaline Phosphatase Troponin T C-Reactive Protein Total Protein Albumin Triglycerides Cholesterol LDL Cholesterol Direct HDL Cholesterol Urine WBC (Auto) Urine Creatinine Urine Total Protein Vancomycin Trough Rheumatoid Factor Complement C4 Miscellaneous Test Crossmatch 09/19/16 09/19/16 09/19/16 06:21 09:50 09:50 WBC 17.1 H RBC 3.49 L Hgb 9.0 L Hct 28.1 L MCV MCH 26 L MCHC RDW 20.8 H Plt Count Lymph % (Auto) 11.5 L [place] % (Auto) 7.5 H Lymph # Carbon # 1.3 H Baso # Seg Neutrophils % 79.8 H Seg Neuts % (Manual) Lymphocytes % (Manual) Monocytes % (Manual) Eosinophils % (Manual) Basophils % (Manual) Nucleated RBC % Seg Neutrophils # 13.7 H Seg Neutrophils # Man Lymphocytes # (Manual) Monocytes # (Manual) Eosinophils # (Manual) PT INR Fibrinogen dRVVT Confirm Interp Factor V Activity POC ABG pH POC ABG pCO2 POC ABG pO2 Sodium Potassium Chloride 108.6 H Carbon Dioxide 15 L BUN 125 H Creatinine 4.1 H Glucose 124 H POC Glucose 119 H Lactic Acid Calcium Phosphorus Magnesium Direct Bilirubin ALT Alkaline Phosphatase Troponin T C-Reactive Protein Total Protein Albumin Triglycerides Cholesterol LDL Cholesterol Direct HDL Cholesterol Urine WBC (Auto) Urine Creatinine Urine Total Protein Vancomycin Trough Rheumatoid Factor Complement C4 Miscellaneous Test Crossmatch 09/19/16 09/19/16 09/19/16 11:25 17:53 23:36 WBC RBC Hgb Hct MCV MCH MCHC RDW Plt Count Lymph % (Auto) Carbon % (Auto) Lymph # Carbon # Baso # Seg Neutrophils % Seg Neuts % (Manual) Lymphocytes % (Manual) Monocytes % (Manual) Eosinophils % (Manual) Basophils % (Manual) Nucleated RBC % Seg Neutrophils # Seg Neutrophils # Man Lymphocytes # (Manual) Monocytes # (Manual) Eosinophils # (Manual) PT INR Fibrinogen dRVVT Confirm Interp Factor V Activity POC ABG pH POC ABG pCO2 POC ABG pO2 Sodium Potassium Chloride Carbon Dioxide BUN Creatinine Glucose POC Glucose 160 H 245 H 121 H Lactic Acid Calcium Phosphorus Magnesium Direct Bilirubin ALT Alkaline Phosphatase Troponin T C-Reactive Protein Total Protein Albumin Triglycerides Cholesterol LDL Cholesterol Direct HDL Cholesterol Urine WBC (Auto) Urine Creatinine Urine Total Protein Vancomycin Trough Rheumatoid Factor Complement C4 Miscellaneous Test Crossmatch 09/20/16 09/20/16 09/20/16 04:10 04:10 04:10 WBC 17.0 H RBC 3.21 L Hgb 8.2 L Hct 25.5 L MCV MCH 26 L MCHC RDW 20.9 H Plt Count Lymph % (Auto) Carbon % (Auto) Lymph # Carbon # Baso # Seg Neutrophils % Seg Neuts % (Manual) Lymphocytes % (Manual) Monocytes % (Manual) Eosinophils % (Manual) Basophils % (Manual) Nucleated RBC % Seg Neutrophils # Seg Neutrophils # Man Lymphocytes # (Manual) Monocytes # (Manual) Eosinophils # (Manual) PT INR Fibrinogen dRVVT Confirm Interp Factor V Activity POC ABG pH POC ABG pCO2 POC ABG pO2 Sodium Potassium Chloride 111.0 H Carbon Dioxide 16 L BUN 129 H Creatinine 3.7 H Glucose 115 H POC Glucose Lactic Acid Calcium 8.2 L Phosphorus Magnesium Direct Bilirubin ALT Alkaline Phosphatase Troponin T C-Reactive Protein Total Protein Albumin Triglycerides 243 H Cholesterol LDL Cholesterol Direct HDL Cholesterol Urine WBC (Auto) Urine Creatinine Urine Total Protein Vancomycin Trough Rheumatoid Factor Complement C4 Miscellaneous Test Crossmatch 09/20/16 09/20/16 09/20/16 05:40 11:52 16:50 WBC RBC Hgb Hct MCV MCH MCHC RDW Plt Count Lymph % (Auto) Carbon % (Auto) Lymph # Carbon # Baso # Seg Neutrophils % Seg Neuts % (Manual) Lymphocytes % (Manual) Monocytes % (Manual) Eosinophils % (Manual) Basophils % (Manual) Nucleated RBC % Seg Neutrophils # Seg Neutrophils # Man Lymphocytes # (Manual) Monocytes # (Manual) Eosinophils # (Manual) PT INR Fibrinogen dRVVT Confirm Interp Factor V Activity POC ABG pH POC ABG pCO2 POC ABG pO2 Sodium Potassium Chloride Carbon Dioxide BUN Creatinine Glucose POC Glucose 131 H 183 H 236 H Lactic Acid Calcium Phosphorus Magnesium Direct Bilirubin ALT Alkaline Phosphatase Troponin T C-Reactive Protein Total Protein Albumin Triglycerides Cholesterol LDL Cholesterol Direct HDL Cholesterol Urine WBC (Auto) Urine Creatinine Urine Total Protein Vancomycin Trough Rheumatoid Factor Complement C4 Miscellaneous Test Crossmatch 09/20/16 09/21/16 09/21/16 23:51 03:30 04:44 WBC RBC Hgb Hct MCV MCH MCHC RDW Plt Count Lymph % (Auto) Carbon % (Auto) Lymph # [place] # Baso # Seg Neutrophils % Seg Neuts % (Manual) Lymphocytes % (Manual) Monocytes % (Manual) Eosinophils % (Manual) Basophils % (Manual) Nucleated RBC % Seg Neutrophils # Seg Neutrophils # Man Lymphocytes # (Manual) Monocytes # (Manual) Eosinophils # (Manual) PT INR Fibrinogen dRVVT Confirm Interp Factor V Activity POC ABG pH POC ABG pCO2 POC ABG pO2 Sodium Potassium Chloride Carbon Dioxide BUN Creatinine Glucose POC Glucose 114 H 141 H Lactic Acid Calcium Phosphorus Magnesium 2.70 H Direct Bilirubin ALT Alkaline Phosphatase Troponin T C-Reactive Protein Total Protein Albumin Triglycerides Cholesterol LDL Cholesterol Direct HDL Cholesterol Urine WBC (Auto) Urine Creatinine Urine Total Protein Vancomycin Trough Rheumatoid Factor Complement C4 Miscellaneous Test Crossmatch 09/21/16 09/21/16 09/21/16 07:45 07:45 10:01 WBC 13.8 H RBC 2.94 L Hgb 7.5 L Hct 23.5 L MCV MCH 26 L MCHC RDW 21.2 H Plt Count Lymph % (Auto) 6.9 L Carbon % (Auto) 9.4 H Lymph # 0.9 L Carbon # 1.3 H Baso # Seg Neutrophils % 83.2 H Seg Neuts % (Manual) Lymphocytes % (Manual) Monocytes % (Manual) Eosinophils % (Manual) Basophils % (Manual) Nucleated RBC % Seg Neutrophils # 11.5 H Seg Neutrophils # Man Lymphocytes # (Manual) Monocytes # (Manual) Eosinophils # (Manual) PT INR Fibrinogen dRVVT Confirm Interp Factor V Activity POC ABG pH 7.308 L POC ABG pCO2 31.9 L POC ABG pO2 148 H Sodium 147 H Potassium Chloride 114.2 H Carbon Dioxide 15 L BUN 120 H Creatinine 3.9 H Glucose 156 H POC Glucose Lactic Acid Calcium 8.2 L Phosphorus Magnesium Direct Bilirubin ALT Alkaline Phosphatase Troponin T C-Reactive Protein Total Protein Albumin Triglycerides Cholesterol LDL Cholesterol Direct HDL Cholesterol Urine WBC (Auto) Urine Creatinine Urine Total Protein Vancomycin Trough Rheumatoid Factor Complement C4 Miscellaneous Test Crossmatch 09/21/16 09/21/16 09/21/16 12:00 12:03 13:00 WBC RBC Hgb Hct MCV MCH MCHC RDW Plt Count Lymph % (Auto) Carbon % (Auto) Lymph # [place] # Baso # Seg Neutrophils % Seg Neuts % (Manual) Lymphocytes % (Manual) Monocytes % (Manual) Eosinophils % (Manual) Basophils % (Manual) Nucleated RBC % Seg Neutrophils # Seg Neutrophils # Man Lymphocytes # (Manual) Monocytes # (Manual) Eosinophils # (Manual) PT INR Fibrinogen dRVVT Confirm Interp Factor V Activity POC ABG pH POC ABG pCO2 POC ABG pO2 Sodium Potassium Chloride Carbon Dioxide BUN Creatinine Glucose POC Glucose 163 H Lactic Acid Calcium Phosphorus Magnesium Direct Bilirubin ALT Alkaline Phosphatase Troponin T C-Reactive Protein Total Protein Albumin Triglycerides Cholesterol LDL Cholesterol Direct HDL Cholesterol Urine WBC (Auto) Urine Creatinine 54.8 H Urine Total Protein Vancomycin Trough 2.3 L Rheumatoid Factor Complement C4 Miscellaneous Test Crossmatch 09/21/16 09/21/16 09/22/16 16:51 23:17 06:27 WBC RBC Hgb Hct MCV MCH MCHC RDW Plt Count Lymph % (Auto) Carbon % (Auto) Lymph # [place] # Baso # Seg Neutrophils % Seg Neuts % (Manual) Lymphocytes % (Manual) Monocytes % (Manual) Eosinophils % (Manual) Basophils % (Manual) Nucleated RBC % Seg Neutrophils # Seg Neutrophils # Man Lymphocytes # (Manual) Monocytes # (Manual) Eosinophils # (Manual) PT INR Fibrinogen dRVVT Confirm Interp Factor V Activity POC ABG pH POC ABG pCO2 POC ABG pO2 Sodium Potassium Chloride Carbon Dioxide BUN Creatinine Glucose POC Glucose 206 H 114 H 115 H Lactic Acid Calcium Phosphorus Magnesium Direct Bilirubin ALT Alkaline Phosphatase Troponin T C-Reactive Protein Total Protein Albumin Triglycerides Cholesterol LDL Cholesterol Direct HDL Cholesterol Urine WBC (Auto) Urine Creatinine Urine Total Protein Vancomycin Trough Rheumatoid Factor Complement C4 Miscellaneous Test Crossmatch 09/22/16 09/22/16 09/22/16 07:50 07:50 12:00 WBC 17.8 H RBC 3.04 L Hgb 8.0 L Hct 24.7 L MCV MCH 26 L MCHC RDW 21.6 H Plt Count Lymph % (Auto) Carbon % (Auto) Lymph # [place] # Baso # Seg Neutrophils % Seg Neuts % (Manual) Lymphocytes % (Manual) Monocytes % (Manual) Eosinophils % (Manual) Basophils % (Manual) Nucleated RBC % Seg Neutrophils # Seg Neutrophils # Man Lymphocytes # (Manual) Monocytes # (Manual) Eosinophils # (Manual) PT INR Fibrinogen dRVVT Confirm Interp Factor V Activity POC ABG pH POC ABG pCO2 POC ABG pO2 Sodium 150 H Potassium Chloride 118.2 H Carbon Dioxide 14 L BUN 111 H Creatinine 3.7 H Glucose 157 H POC Glucose 183 H Lactic Acid Calcium Phosphorus Magnesium Direct Bilirubin ALT Alkaline Phosphatase Troponin T C-Reactive Protein Total Protein Albumin Triglycerides Cholesterol LDL Cholesterol Direct HDL Cholesterol Urine WBC (Auto) Urine Creatinine Urine Total Protein Vancomycin Trough Rheumatoid Factor Complement C4 Miscellaneous Test Crossmatch 09/22/16 09/22/16 09/23/16 17:29 23:10 05:00 WBC 19.2 H RBC 3.13 L Hgb 8.0 L Hct 25.2 L MCV MCH 26 L MCHC RDW 22.1 H Plt Count Lymph % (Auto) Carbon % (Auto) Lymph # [place] # Baso # Seg Neutrophils % Seg Neuts % (Manual) 92.0 H Lymphocytes % (Manual) 3.0 L Monocytes % (Manual) Eosinophils % (Manual) Basophils % (Manual) Nucleated RBC % Seg Neutrophils # Seg Neutrophils # Man 17.7 H Lymphocytes # (Manual) 0.6 L Monocytes # (Manual) Eosinophils # (Manual) PT INR Fibrinogen dRVVT Confirm Interp Factor V Activity POC ABG pH POC ABG pCO2 POC ABG pO2 Sodium Potassium Chloride Carbon Dioxide BUN Creatinine Glucose POC Glucose 197 H 169 H Lactic Acid Calcium Phosphorus Magnesium Direct Bilirubin ALT Alkaline Phosphatase Troponin T C-Reactive Protein Total Protein Albumin Triglycerides Cholesterol LDL Cholesterol Direct HDL Cholesterol Urine WBC (Auto) Urine Creatinine Urine Total Protein Vancomycin Trough Rheumatoid Factor Complement C4 Miscellaneous Test Crossmatch 09/23/16 09/23/16 09/23/16 05:00 05:00 05:10 WBC RBC Hgb Hct MCV MCH MCHC RDW Plt Count Lymph % (Auto) Carbon % (Auto) Lymph # [place] # Baso # Seg Neutrophils % Seg Neuts % (Manual) Lymphocytes % (Manual) Monocytes % (Manual) Eosinophils % (Manual) Basophils % (Manual) Nucleated RBC % Seg Neutrophils # Seg Neutrophils # Man Lymphocytes # (Manual) Monocytes # (Manual) Eosinophils # (Manual) PT INR Fibrinogen dRVVT Confirm Interp Factor V Activity POC ABG pH POC ABG pCO2 POC ABG pO2 Sodium 147 H Potassium 3.2 L Chloride 115.7 H Carbon Dioxide 13 L BUN 111 H Creatinine 3.8 H Glucose 194 H POC Glucose 188 H Lactic Acid Calcium 7.3 L D Phosphorus Magnesium Direct Bilirubin ALT Alkaline Phosphatase Troponin T C-Reactive Protein 3.20 H Total Protein Albumin Triglycerides Cholesterol LDL Cholesterol Direct HDL Cholesterol Urine WBC (Auto) Urine Creatinine Urine Total Protein Vancomycin Trough Rheumatoid Factor Complement C4 Miscellaneous Test Crossmatch 09/23/16 09/23/16 09/23/16 11:37 12:29 18:01 WBC RBC Hgb Hct MCV MCH MCHC RDW Plt Count Lymph % (Auto) Carbon % (Auto) Lymph # [place] # Baso # Seg Neutrophils % Seg Neuts % (Manual) Lymphocytes % (Manual) Monocytes % (Manual) Eosinophils % (Manual) Basophils % (Manual) Nucleated RBC % Seg Neutrophils # Seg Neutrophils # Man Lymphocytes # (Manual) Monocytes # (Manual) Eosinophils # (Manual) PT INR Fibrinogen dRVVT Confirm Interp Factor V Activity POC ABG pH POC ABG pCO2 18.9 L POC ABG pO2 143 H Sodium Potassium Chloride Carbon Dioxide BUN Creatinine Glucose POC Glucose 153 H 108 H Lactic Acid Calcium Phosphorus Magnesium Direct Bilirubin ALT Alkaline Phosphatase Troponin T C-Reactive Protein Total Protein Albumin Triglycerides Cholesterol LDL Cholesterol Direct HDL Cholesterol Urine WBC (Auto) Urine Creatinine Urine Total Protein Vancomycin Trough Rheumatoid Factor Complement C4 Miscellaneous Test Crossmatch 09/23/16 09/23/16 09/24/16 21:19 23:43 05:16 WBC RBC Hgb Hct MCV MCH MCHC RDW Plt Count Lymph % (Auto) Carbon % (Auto) Lymph # [place] # Baso # Seg Neutrophils % Seg Neuts % (Manual) Lymphocytes % (Manual) Monocytes % (Manual) Eosinophils % (Manual) Basophils % (Manual) Nucleated RBC % Seg Neutrophils # Seg Neutrophils # Man Lymphocytes # (Manual) Monocytes # (Manual) Eosinophils # (Manual) PT INR Fibrinogen dRVVT Confirm Interp Factor V Activity POC ABG pH POC ABG pCO2 17.3 L POC ABG pO2 112 H Sodium Potassium Chloride Carbon Dioxide BUN Creatinine Glucose POC Glucose 143 H 164 H Lactic Acid Calcium Phosphorus Magnesium Direct Bilirubin ALT Alkaline Phosphatase Troponin T C-Reactive Protein Total Protein Albumin Triglycerides Cholesterol LDL Cholesterol Direct HDL Cholesterol Urine WBC (Auto) Urine Creatinine Urine Total Protein Vancomycin Trough Rheumatoid Factor Complement C4 Miscellaneous Test Crossmatch 09/24/16 09/24/16 09/24/16 05:21 11:58 17:06 WBC RBC Hgb Hct MCV MCH MCHC RDW Plt Count Lymph % (Auto) Carbon % (Auto) Lymph # [place] # Baso # Seg Neutrophils % Seg Neuts % (Manual) Lymphocytes % (Manual) Monocytes % (Manual) Eosinophils % (Manual) Basophils % (Manual) Nucleated RBC % Seg Neutrophils # Seg Neutrophils # Man Lymphocytes # (Manual) Monocytes # (Manual) Eosinophils # (Manual) PT INR Fibrinogen dRVVT Confirm Interp Factor V Activity POC ABG pH POC ABG pCO2 POC ABG pO2 Sodium Potassium Chloride Carbon Dioxide 10 L BUN 103 H Creatinine 4.3 H Glucose 163 H POC Glucose 173 H 167 H Lactic Acid Calcium 6.5 L Phosphorus Magnesium Direct Bilirubin ALT Alkaline Phosphatase Troponin T C-Reactive Protein Total Protein Albumin Triglycerides Cholesterol LDL Cholesterol Direct HDL Cholesterol Urine WBC (Auto) Urine Creatinine Urine Total Protein Vancomycin Trough Rheumatoid Factor Complement C4 Miscellaneous Test Crossmatch 09/24/16 09/24/16 09/24/16 20:15 21:02 23:48 WBC RBC Hgb Hct MCV MCH MCHC RDW Plt Count Lymph % (Auto) [place] % (Auto) Lymph # [place] # Baso # Seg Neutrophils % Seg Neuts % (Manual) Lymphocytes % (Manual) Monocytes % (Manual) Eosinophils % (Manual) Basophils % (Manual) Nucleated RBC % Seg Neutrophils # Seg Neutrophils # Man Lymphocytes # (Manual) Monocytes # (Manual) Eosinophils # (Manual) PT INR Fibrinogen dRVVT Confirm Interp Factor V Activity POC ABG pH 7.288 L POC ABG pCO2 30.2 L 21.5 L POC ABG pO2 32 L 39 L Sodium Potassium Chloride Carbon Dioxide BUN Creatinine Glucose POC Glucose 109 H Lactic Acid Calcium Phosphorus Magnesium Direct Bilirubin ALT Alkaline Phosphatase Troponin T C-Reactive Protein Total Protein Albumin Triglycerides Cholesterol LDL Cholesterol Direct HDL Cholesterol Urine WBC (Auto) Urine Creatinine Urine Total Protein Vancomycin Trough Rheumatoid Factor Complement C4 Miscellaneous Test Crossmatch 09/25/16 09/25/16 09/25/16 04:20 04:20 04:20 WBC RBC 2.58 L Hgb 7.0 L Hct 21.0 L MCV MCH 27 L MCHC RDW 23.8 H Plt Count Lymph % (Auto) [place] % (Auto) Lymph # [place] # Baso # Seg Neutrophils % Seg Neuts % (Manual) Lymphocytes % (Manual) 12.0 L Monocytes % (Manual) Eosinophils % (Manual) 7.0 H Basophils % (Manual) 2.0 H Nucleated RBC % Seg Neutrophils # Seg Neutrophils # Man Lymphocytes # (Manual) 0.9 L Monocytes # (Manual) Eosinophils # (Manual) 0.5 H PT INR Fibrinogen dRVVT Confirm Interp Factor V Activity POC ABG pH POC ABG pCO2 POC ABG pO2 Sodium Potassium Chloride Carbon Dioxide 15 L BUN 72 H Creatinine 3.8 H Glucose POC Glucose Lactic Acid Calcium 6.0 L Phosphorus 4.60 H Magnesium 1.60 L Direct Bilirubin ALT Alkaline Phosphatase Troponin T C-Reactive Protein Total Protein Albumin Triglycerides Cholesterol LDL Cholesterol Direct HDL Cholesterol Urine WBC (Auto) Urine Creatinine Urine Total Protein Vancomycin Trough Rheumatoid Factor Complement C4 Miscellaneous Test Crossmatch 09/25/16 09/25/16 09/25/16 04:57 08:02 10:30 WBC RBC Hgb Hct MCV MCH MCHC RDW Plt Count Lymph % (Auto) [place] % (Auto) Lymph # [place] # Baso # Seg Neutrophils % Seg Neuts % (Manual) Lymphocytes % (Manual) Monocytes % (Manual) Eosinophils % (Manual) Basophils % (Manual) Nucleated RBC % Seg Neutrophils # Seg Neutrophils # Man Lymphocytes # (Manual) Monocytes # (Manual) Eosinophils # (Manual) PT INR Fibrinogen dRVVT Confirm Interp Factor V Activity POC ABG pH POC ABG pCO2 24.7 L POC ABG pO2 152 H Sodium Potassium Chloride Carbon Dioxide BUN Creatinine Glucose POC Glucose 113 H Lactic Acid Calcium Phosphorus Magnesium Direct Bilirubin ALT Alkaline Phosphatase Troponin T C-Reactive Protein Total Protein Albumin Triglycerides Cholesterol LDL Cholesterol Direct HDL Cholesterol Urine WBC (Auto) Urine Creatinine Urine Total Protein Vancomycin Trough Rheumatoid Factor Complement C4 Miscellaneous Test Crossmatch See Detail 09/25/16 09/25/16 09/25/16 12:05 17:44 23:47 WBC RBC Hgb Hct MCV MCH MCHC RDW Plt Count Lymph % (Auto) Carbon % (Auto) Lymph # [place] # Baso # Seg Neutrophils % Seg Neuts % (Manual) Lymphocytes % (Manual) Monocytes % (Manual) Eosinophils % (Manual) Basophils % (Manual) Nucleated RBC % Seg Neutrophils # Seg Neutrophils # Man Lymphocytes # (Manual) Monocytes # (Manual) Eosinophils # (Manual) PT INR Fibrinogen dRVVT Confirm Interp Factor V Activity POC ABG pH POC ABG pCO2 POC ABG pO2 Sodium Potassium Chloride Carbon Dioxide BUN Creatinine Glucose POC Glucose 117 H 119 H 150 H Lactic Acid Calcium Phosphorus Magnesium Direct Bilirubin ALT Alkaline Phosphatase Troponin T C-Reactive Protein Total Protein Albumin Triglycerides Cholesterol LDL Cholesterol Direct HDL Cholesterol Urine WBC (Auto) Urine Creatinine Urine Total Protein Vancomycin Trough Rheumatoid Factor Complement C4 Miscellaneous Test Crossmatch 09/26/16 09/26/16 09/26/16 04:25 04:25 04:25 WBC RBC 2.65 L Hgb 7.4 L Hct 21.6 L MCV MCH MCHC RDW 22.5 H Plt Count Lymph % (Auto) Carbon % (Auto) Lymph # [place] # Baso # Seg Neutrophils % Seg Neuts % (Manual) Lymphocytes % (Manual) 6.0 L Monocytes % (Manual) Eosinophils % (Manual) 11.0 H Basophils % (Manual) Nucleated RBC % Seg Neutrophils # Seg Neutrophils # Man Lymphocytes # (Manual) 0.4 L Monocytes # (Manual) Eosinophils # (Manual) 0.6 H PT INR Fibrinogen dRVVT Confirm Interp Factor V Activity POC ABG pH POC ABG pCO2 POC ABG pO2 Sodium Potassium Chloride 97.0 L Carbon Dioxide 19 L BUN 43 H Creatinine 2.6 H Glucose 130 H POC Glucose Lactic Acid 4.40 H* Calcium 6.7 L Phosphorus Magnesium Direct Bilirubin ALT Alkaline Phosphatase Troponin T C-Reactive Protein Total Protein Albumin Triglycerides Cholesterol LDL Cholesterol Direct HDL Cholesterol Urine WBC (Auto) Urine Creatinine Urine Total Protein Vancomycin Trough Rheumatoid Factor Complement C4 Miscellaneous Test Crossmatch 09/26/16 09/26/16 09/26/16 05:20 11:44 12:12 WBC RBC Hgb Hct MCV MCH MCHC RDW Plt Count Lymph % (Auto) [place] % (Auto) Lymph # [place] # Baso # Seg Neutrophils % Seg Neuts % (Manual) Lymphocytes % (Manual) Monocytes % (Manual) Eosinophils % (Manual) Basophils % (Manual) Nucleated RBC % Seg Neutrophils # Seg Neutrophils # Man Lymphocytes # (Manual) Monocytes # (Manual) Eosinophils # (Manual) PT INR Fibrinogen dRVVT Confirm Interp Factor V Activity POC ABG pH POC ABG pCO2 27.0 L POC ABG pO2 69 L Sodium Potassium Chloride Carbon Dioxide BUN Creatinine Glucose POC Glucose 121 H 128 H Lactic Acid Calcium Phosphorus Magnesium Direct Bilirubin ALT Alkaline Phosphatase Troponin T C-Reactive Protein Total Protein Albumin Triglycerides Cholesterol LDL Cholesterol Direct HDL Cholesterol Urine WBC (Auto) Urine Creatinine Urine Total Protein Vancomycin Trough Rheumatoid Factor Complement C4 Miscellaneous Test Crossmatch 09/26/16 09/26/16 09/27/16 18:31 23:40 08:20 WBC RBC Hgb Hct MCV MCH MCHC RDW Plt Count Lymph % (Auto) [place] % (Auto) Lymph # [place] # Baso # Seg Neutrophils % Seg Neuts % (Manual) Lymphocytes % (Manual) Monocytes % (Manual) Eosinophils % (Manual) Basophils % (Manual) Nucleated RBC % Seg Neutrophils # Seg Neutrophils # Man Lymphocytes # (Manual) Monocytes # (Manual) Eosinophils # (Manual) PT INR Fibrinogen dRVVT Confirm Interp Factor V Activity POC ABG pH POC ABG pCO2 POC ABG pO2 Sodium Potassium Chloride Carbon Dioxide BUN Creatinine Glucose POC Glucose 120 H 133 H Lactic Acid 4.10 H* Calcium Phosphorus Magnesium Direct Bilirubin ALT Alkaline Phosphatase Troponin T C-Reactive Protein Total Protein Albumin Triglycerides Cholesterol LDL Cholesterol Direct HDL Cholesterol Urine WBC (Auto) Urine Creatinine Urine Total Protein Vancomycin Trough Rheumatoid Factor Complement C4 Miscellaneous Test Crossmatch 09/27/16 09/27/16 09/27/16 11:23 15:00 18:15 WBC RBC Hgb Hct MCV MCH MCHC RDW Plt Count Lymph % (Auto) Carbon % (Auto) Lymph # [place] # Baso # Seg Neutrophils % Seg Neuts % (Manual) Lymphocytes % (Manual) Monocytes % (Manual) Eosinophils % (Manual) Basophils % (Manual) Nucleated RBC % Seg Neutrophils # Seg Neutrophils # Man Lymphocytes # (Manual) Monocytes # (Manual) Eosinophils # (Manual) PT INR Fibrinogen dRVVT Confirm Interp Factor V Activity POC ABG pH 7.459 H POC ABG pCO2 27.1 L POC ABG pO2 140 H Sodium Potassium Chloride Carbon Dioxide BUN Creatinine Glucose POC Glucose 114 H 127 H Lactic Acid Calcium Phosphorus Magnesium Direct Bilirubin ALT Alkaline Phosphatase Troponin T C-Reactive Protein Total Protein Albumin Triglycerides Cholesterol LDL Cholesterol Direct HDL Cholesterol Urine WBC (Auto) Urine Creatinine Urine Total Protein Vancomycin Trough Rheumatoid Factor Complement C4 Miscellaneous Test Crossmatch 09/27/16 09/27/16 09/28/16 Unknown Unknown 03:45 WBC RBC 2.49 L Hgb 6.8 L Hct 20.7 L MCV MCH 27 L MCHC RDW 22.1 H Plt Count Lymph % (Auto) Carbon % (Auto) Lymph # [place] # Baso # Seg Neutrophils % Seg Neuts % (Manual) 32.0 L Lymphocytes % (Manual) 12.0 L Monocytes % (Manual) 11.0 H Eosinophils % (Manual) 10.0 H Basophils % (Manual) Nucleated RBC % Seg Neutrophils # Seg Neutrophils # Man Lymphocytes # (Manual) 1.0 L Monocytes # (Manual) 0.9 H Eosinophils # (Manual) 0.8 H PT INR Fibrinogen dRVVT Confirm Interp Factor V Activity POC ABG pH POC ABG pCO2 POC ABG pO2 Sodium 135 L 135 L Potassium 3.5 L Chloride 93.6 L 94.4 L Carbon Dioxide 17 L 21 L BUN 45 H 28 H Creatinine 3.3 H 2.5 H Glucose 106 H POC Glucose Lactic Acid Calcium 7.3 L 7.1 L Phosphorus Magnesium Direct Bilirubin ALT Alkaline Phosphatase Troponin T C-Reactive Protein Total Protein Albumin Triglycerides Cholesterol LDL Cholesterol Direct HDL Cholesterol Urine WBC (Auto) Urine Creatinine Urine Total Protein Vancomycin Trough Rheumatoid Factor Complement C4 Miscellaneous Test Crossmatch 09/28/16 09/28/16 09/28/16 03:45 07:25 11:58 WBC 13.3 H RBC 3.01 L Hgb 8.4 L Hct 25.0 L MCV MCH MCHC RDW 20.5 H Plt Count 128 L Lymph % (Auto) Carbon % (Auto) Lymph # [place] # Baso # Seg Neutrophils % Seg Neuts % (Manual) Lymphocytes % (Manual) 7.0 L Monocytes % (Manual) Eosinophils % (Manual) 6.0 H Basophils % (Manual) Nucleated RBC % Seg Neutrophils # Seg Neutrophils # Man Lymphocytes # (Manual) 0.9 L Monocytes # (Manual) Eosinophils # (Manual) 0.8 H PT INR Fibrinogen dRVVT Confirm Interp Factor V Activity POC ABG pH POC ABG pCO2 POC ABG pO2 Sodium Potassium Chloride Carbon Dioxide BUN Creatinine Glucose POC Glucose 121 H Lactic Acid 4.50 H* Calcium Phosphorus Magnesium Direct Bilirubin ALT Alkaline Phosphatase Troponin T C-Reactive Protein Total Protein Albumin Triglycerides Cholesterol LDL Cholesterol Direct HDL Cholesterol Urine WBC (Auto) Urine Creatinine Urine Total Protein Vancomycin Trough Rheumatoid Factor Complement C4 Miscellaneous Test Crossmatch 09/29/16 09/29/16 09/29/16 06:45 06:45 06:45 WBC 14.9 H RBC 2.74 L Hgb 7.6 L Hct 23.2 L MCV MCH MCHC RDW 20.5 H Plt Count 81 L Lymph % (Auto) Carbon % (Auto) Lymph # [place] # Baso # Seg Neutrophils % Seg Neuts % (Manual) 81.0 H Lymphocytes % (Manual) 4.0 L Monocytes % (Manual) Eosinophils % (Manual) Basophils % (Manual) Nucleated RBC % Seg Neutrophils # Seg Neutrophils # Man 12.1 H Lymphocytes # (Manual) 0.6 L Monocytes # (Manual) Eosinophils # (Manual) PT INR Fibrinogen dRVVT Confirm Interp Factor V Activity POC ABG pH POC ABG pCO2 POC ABG pO2 Sodium 133 L Potassium 3.4 L Chloride 92.5 L Carbon Dioxide 21 L BUN 33 H Creatinine 3.0 H Glucose POC Glucose Lactic Acid Calcium 6.6 L Phosphorus Magnesium 1.40 L Direct Bilirubin 0.9 H ALT Alkaline Phosphatase Troponin T C-Reactive Protein Total Protein 4.3 L Albumin 1.3 L Triglycerides Cholesterol LDL Cholesterol Direct HDL Cholesterol Urine WBC (Auto) Urine Creatinine Urine Total Protein Vancomycin Trough Rheumatoid Factor Complement C4 Miscellaneous Test Crossmatch 09/29/16 09/29/16 09/30/16 17:52 20:12 00:07 WBC RBC Hgb Hct MCV MCH MCHC RDW Plt Count Lymph % (Auto) Carbon % (Auto) Lymph # Carbon # Baso # Seg Neutrophils % Seg Neuts % (Manual) Lymphocytes % (Manual) Monocytes % (Manual) Eosinophils % (Manual) Basophils % (Manual) Nucleated RBC % Seg Neutrophils # Seg Neutrophils # Man Lymphocytes # (Manual) Monocytes # (Manual) Eosinophils # (Manual) PT INR Fibrinogen dRVVT Confirm Interp Factor V Activity POC ABG pH POC ABG pCO2 POC ABG pO2 Sodium Potassium Chloride Carbon Dioxide BUN Creatinine Glucose POC Glucose 50 L 51 L Lactic Acid Calcium Phosphorus Magnesium Direct Bilirubin ALT Alkaline Phosphatase Troponin T 0.204 H* C-Reactive Protein Total Protein Albumin Triglycerides Cholesterol 31 L LDL Cholesterol Direct 4 L HDL Cholesterol 3 L Urine WBC (Auto) Urine Creatinine Urine Total Protein Vancomycin Trough Rheumatoid Factor Complement C4 Miscellaneous Test Crossmatch 09/30/16 09/30/16 09/30/16 01:30 05:15 06:10 WBC RBC Hgb Hct MCV MCH MCHC RDW Plt Count Lymph % (Auto) [place] % (Auto) Lymph # Carbon # Baso # Seg Neutrophils % Seg Neuts % (Manual) Lymphocytes % (Manual) Monocytes % (Manual) Eosinophils % (Manual) Basophils % (Manual) Nucleated RBC % Seg Neutrophils # Seg Neutrophils # Man Lymphocytes # (Manual) Monocytes # (Manual) Eosinophils # (Manual) PT INR Fibrinogen dRVVT Confirm Interp Factor V Activity POC ABG pH POC ABG pCO2 POC ABG pO2 Sodium 133 L Potassium 3.2 L Chloride 93.2 L Carbon Dioxide 19 L BUN 36 H Creatinine 3.2 H Glucose 104 H POC Glucose 167 H 146 H Lactic Acid Calcium 6.4 L Phosphorus Magnesium 1.60 L Direct Bilirubin ALT Alkaline Phosphatase Troponin T C-Reactive Protein Total Protein Albumin Triglycerides Cholesterol LDL Cholesterol Direct HDL Cholesterol Urine WBC (Auto) Urine Creatinine Urine Total Protein Vancomycin Trough Rheumatoid Factor Complement C4 Miscellaneous Test Crossmatch 09/30/16 09/30/16 09/30/16 11:26 13:39 18:38 WBC RBC Hgb Hct MCV MCH MCHC RDW Plt Count Lymph % (Auto) [place] % (Auto) Lymph # Carbon # Baso # Seg Neutrophils % Seg Neuts % (Manual) Lymphocytes % (Manual) Monocytes % (Manual) Eosinophils % (Manual) Basophils % (Manual) Nucleated RBC % Seg Neutrophils # Seg Neutrophils # Man Lymphocytes # (Manual) Monocytes # (Manual) Eosinophils # (Manual) PT INR Fibrinogen dRVVT Confirm Interp Factor V Activity POC ABG pH 7.479 H POC ABG pCO2 29.8 L POC ABG pO2 117 H Sodium Potassium Chloride Carbon Dioxide BUN Creatinine Glucose POC Glucose 140 H 122 H Lactic Acid Calcium Phosphorus Magnesium Direct Bilirubin ALT Alkaline Phosphatase Troponin T C-Reactive Protein Total Protein Albumin Triglycerides Cholesterol LDL Cholesterol Direct HDL Cholesterol Urine WBC (Auto) Urine Creatinine Urine Total Protein Vancomycin Trough Rheumatoid Factor Complement C4 Miscellaneous Test Crossmatch 10/01/16 10/01/16 10/01/16 06:00 06:00 12:37 WBC 12.6 H RBC 2.75 L Hgb 7.3 L Hct 23.3 L MCV MCH 27 L MCHC RDW 20.6 H Plt Count 72 L Lymph % (Auto) Carbon % (Auto) Lymph # Carbon # Baso # Seg Neutrophils % Seg Neuts % (Manual) 31.0 L Lymphocytes % (Manual) 8.0 L Monocytes % (Manual) Eosinophils % (Manual) Basophils % (Manual) Nucleated RBC % 3.0 H Seg Neutrophils # Seg Neutrophils # Man Lymphocytes # (Manual) 1.0 L Monocytes # (Manual) Eosinophils # (Manual) PT INR Fibrinogen dRVVT Confirm Interp Factor V Activity POC ABG pH POC ABG pCO2 POC ABG pO2 Sodium 127 L Potassium Chloride 86.8 L Carbon Dioxide 20 L BUN 42 H Creatinine 3.5 H Glucose POC Glucose 65 L Lactic Acid Calcium 7.0 L Phosphorus Magnesium Direct Bilirubin ALT Alkaline Phosphatase Troponin T C-Reactive Protein Total Protein Albumin Triglycerides Cholesterol LDL Cholesterol Direct HDL Cholesterol Urine WBC (Auto) Urine Creatinine Urine Total Protein Vancomycin Trough Rheumatoid Factor Complement C4 Miscellaneous Test Crossmatch 10/01/16 10/01/16 10/02/16 17:39 23:32 00:59 WBC RBC Hgb Hct MCV MCH MCHC RDW Plt Count Lymph % (Auto) Carbon % (Auto) Lymph # Carbon # Baso # Seg Neutrophils % Seg Neuts % (Manual) Lymphocytes % (Manual) Monocytes % (Manual) Eosinophils % (Manual) Basophils % (Manual) Nucleated RBC % Seg Neutrophils # Seg Neutrophils # Man Lymphocytes # (Manual) Monocytes # (Manual) Eosinophils # (Manual) PT INR Fibrinogen dRVVT Confirm Interp Factor V Activity POC ABG pH POC ABG pCO2 POC ABG pO2 Sodium Potassium Chloride Carbon Dioxide BUN Creatinine Glucose POC Glucose 107 H 52 L 145 H Lactic Acid Calcium Phosphorus Magnesium Direct Bilirubin ALT Alkaline Phosphatase Troponin T C-Reactive Protein Total Protein Albumin Triglycerides Cholesterol LDL Cholesterol Direct HDL Cholesterol Urine WBC (Auto) Urine Creatinine Urine Total Protein Vancomycin Trough Rheumatoid Factor Complement C4 Miscellaneous Test Crossmatch 10/02/16 10/02/16 10/02/16 10:30 10:50 10:50 WBC 14.7 H RBC 2.76 L Hgb 7.4 L Hct 23.6 L MCV MCH 27 L MCHC RDW 20.2 H Plt Count 79 L Lymph % (Auto) Carbon % (Auto) Lymph # [place] # Baso # Seg Neutrophils % Seg Neuts % (Manual) 86.0 H Lymphocytes % (Manual) 6.0 L Monocytes % (Manual) Eosinophils % (Manual) Basophils % (Manual) Nucleated RBC % Seg Neutrophils # Seg Neutrophils # Man 12.6 H Lymphocytes # (Manual) 0.9 L Monocytes # (Manual) Eosinophils # (Manual) PT INR Fibrinogen dRVVT Confirm Interp Factor V Activity POC ABG pH 7.486 H POC ABG pCO2 30.1 L POC ABG pO2 108 H Sodium 131 L Potassium 3.4 L Chloride 89.9 L Carbon Dioxide BUN 26 H Creatinine 2.6 H Glucose POC Glucose Lactic Acid Calcium 7.0 L Phosphorus Magnesium Direct Bilirubin ALT Alkaline Phosphatase Troponin T C-Reactive Protein Total Protein Albumin Triglycerides Cholesterol LDL Cholesterol Direct HDL Cholesterol Urine WBC (Auto) Urine Creatinine Urine Total Protein Vancomycin Trough Rheumatoid Factor Complement C4 Miscellaneous Test Crossmatch 10/02/16 10/03/16 10/03/16 23:45 00:45 05:10 WBC 12.9 H RBC 2.77 L Hgb 7.6 L Hct 23.7 L MCV MCH 27 L MCHC RDW 19.7 H Plt Count 89 L Lymph % (Auto) Carbon % (Auto) Lymph # [place] # Baso # Seg Neutrophils % Seg Neuts % (Manual) Lymphocytes % (Manual) 8.0 L Monocytes % (Manual) Eosinophils % (Manual) Basophils % (Manual) Nucleated RBC % Seg Neutrophils # 11.9 H Seg Neutrophils # Man Lymphocytes # (Manual) 1.0 L Monocytes # (Manual) Eosinophils # (Manual) PT INR Fibrinogen dRVVT Confirm Interp Factor V Activity POC ABG pH POC ABG pCO2 POC ABG pO2 Sodium Potassium Chloride Carbon Dioxide BUN Creatinine Glucose POC Glucose 55 L 199 H Lactic Acid Calcium Phosphorus Magnesium Direct Bilirubin ALT Alkaline Phosphatase Troponin T C-Reactive Protein Total Protein Albumin Triglycerides Cholesterol LDL Cholesterol Direct HDL Cholesterol Urine WBC (Auto) Urine Creatinine Urine Total Protein Vancomycin Trough Rheumatoid Factor Complement C4 Miscellaneous Test Crossmatch 10/03/16 10/03/16 10/03/16 05:10 12:14 13:18 WBC RBC Hgb Hct MCV MCH MCHC RDW Plt Count Lymph % (Auto) Carbon % (Auto) Lymph # [place] # Baso # Seg Neutrophils % Seg Neuts % (Manual) Lymphocytes % (Manual) Monocytes % (Manual) Eosinophils % (Manual) Basophils % (Manual) Nucleated RBC % Seg Neutrophils # Seg Neutrophils # Man Lymphocytes # (Manual) Monocytes # (Manual) Eosinophils # (Manual) PT INR Fibrinogen dRVVT Confirm Interp Factor V Activity POC ABG pH POC ABG pCO2 POC ABG pO2 Sodium 129 L Potassium 3.3 L Chloride 88.8 L Carbon Dioxide 20 L BUN 29 H Creatinine 2.8 H Glucose POC Glucose 68 L 127 H Lactic Acid Calcium 7.2 L Phosphorus Magnesium Direct Bilirubin ALT Alkaline Phosphatase Troponin T C-Reactive Protein Total Protein Albumin Triglycerides Cholesterol LDL Cholesterol Direct HDL Cholesterol Urine WBC (Auto) Urine Creatinine Urine Total Protein Vancomycin Trough Rheumatoid Factor Complement C4 Miscellaneous Test Crossmatch 10/03/16 10/03/16 10/03/16 14:42 18:21 19:09 WBC RBC Hgb Hct MCV MCH MCHC RDW Plt Count Lymph % (Auto) Carbon % (Auto) Lymph # [place] # Baso # Seg Neutrophils % Seg Neuts % (Manual) Lymphocytes % (Manual) Monocytes % (Manual) Eosinophils % (Manual) Basophils % (Manual) Nucleated RBC % Seg Neutrophils # Seg Neutrophils # Man Lymphocytes # (Manual) Monocytes # (Manual) Eosinophils # (Manual) PT INR Fibrinogen dRVVT Confirm Interp Factor V Activity POC ABG pH 7.499 H POC ABG pCO2 28.4 L POC ABG pO2 44 L Sodium Potassium Chloride Carbon Dioxide BUN Creatinine Glucose POC Glucose 64 L 205 H Lactic Acid Calcium Phosphorus Magnesium Direct Bilirubin ALT Alkaline Phosphatase Troponin T C-Reactive Protein Total Protein Albumin Triglycerides Cholesterol LDL Cholesterol Direct HDL Cholesterol Urine WBC (Auto) Urine Creatinine Urine Total Protein Vancomycin Trough Rheumatoid Factor Complement C4 Miscellaneous Test Crossmatch 10/03/16 10/04/16 10/04/16 23:33 04:18 06:30 WBC RBC 2.54 L Hgb 7.1 L Hct 21.7 L MCV MCH MCHC RDW 19.5 H Plt Count 76 L Lymph % (Auto) Carbon % (Auto) Lymph # [place] # Baso # Seg Neutrophils % Seg Neuts % (Manual) 88.0 H Lymphocytes % (Manual) 6.0 L Monocytes % (Manual) Eosinophils % (Manual) Basophils % (Manual) Nucleated RBC % Seg Neutrophils # Seg Neutrophils # Man 8.8 H Lymphocytes # (Manual) 0.6 L Monocytes # (Manual) Eosinophils # (Manual) PT INR Fibrinogen dRVVT Confirm Interp Factor V Activity POC ABG pH 7.461 H POC ABG pCO2 33.6 L POC ABG pO2 211 H Sodium Potassium Chloride Carbon Dioxide BUN Creatinine Glucose POC Glucose 136 H Lactic Acid Calcium Phosphorus Magnesium Direct Bilirubin ALT Alkaline Phosphatase Troponin T C-Reactive Protein Total Protein Albumin Triglycerides Cholesterol LDL Cholesterol Direct HDL Cholesterol Urine WBC (Auto) Urine Creatinine Urine Total Protein Vancomycin Trough Rheumatoid Factor Complement C4 Miscellaneous Test Crossmatch 10/04/16 10/04/16 10/04/16 06:30 11:45 17:54 WBC RBC Hgb Hct MCV MCH MCHC RDW Plt Count Lymph % (Auto) Carbon % (Auto) Lymph # [place] # Baso # Seg Neutrophils % Seg Neuts % (Manual) Lymphocytes % (Manual) Monocytes % (Manual) Eosinophils % (Manual) Basophils % (Manual) Nucleated RBC % Seg Neutrophils # Seg Neutrophils # Man Lymphocytes # (Manual) Monocytes # (Manual) Eosinophils # (Manual) PT INR Fibrinogen dRVVT Confirm Interp Factor V Activity POC ABG pH POC ABG pCO2 POC ABG pO2 Sodium 128 L Potassium Chloride 87.4 L Carbon Dioxide 20 L BUN 34 H Creatinine 2.9 H Glucose 127 H POC Glucose 158 H 160 H Lactic Acid Calcium 7.4 L Phosphorus Magnesium Direct Bilirubin ALT Alkaline Phosphatase Troponin T C-Reactive Protein Total Protein Albumin Triglycerides Cholesterol LDL Cholesterol Direct HDL Cholesterol Urine WBC (Auto) Urine Creatinine Urine Total Protein Vancomycin Trough Rheumatoid Factor Complement C4 Miscellaneous Test Crossmatch 10/04/16 10/05/16 10/05/16 23:25 04:30 05:00 WBC RBC 2.64 L Hgb 7.5 L Hct 22.6 L MCV MCH MCHC RDW 19.3 H Plt Count 80 L Lymph % (Auto) Carbon % (Auto) Lymph # [place] # Baso # Seg Neutrophils % Seg Neuts % (Manual) Lymphocytes % (Manual) 12.0 L Monocytes % (Manual) Eosinophils % (Manual) Basophils % (Manual) Nucleated RBC % Seg Neutrophils # Seg Neutrophils # Man Lymphocytes # (Manual) Monocytes # (Manual) Eosinophils # (Manual) PT INR Fibrinogen dRVVT Confirm Interp Factor V Activity POC ABG pH 7.475 H POC ABG pCO2 33.3 L POC ABG pO2 140 H Sodium Potassium Chloride Carbon Dioxide BUN Creatinine Glucose POC Glucose 141 H Lactic Acid Calcium Phosphorus Magnesium Direct Bilirubin ALT Alkaline Phosphatase Troponin T C-Reactive Protein Total Protein Albumin Triglycerides Cholesterol LDL Cholesterol Direct HDL Cholesterol Urine WBC (Auto) Urine Creatinine Urine Total Protein Vancomycin Trough Rheumatoid Factor Complement C4 Miscellaneous Test Crossmatch 10/05/16 10/05/16 10/05/16 05:00 05:09 12:58 WBC RBC Hgb Hct MCV MCH MCHC RDW Plt Count Lymph % (Auto) Carbon % (Auto) Lymph # [place] # Baso # Seg Neutrophils % Seg Neuts % (Manual) Lymphocytes % (Manual) Monocytes % (Manual) Eosinophils % (Manual) Basophils % (Manual) Nucleated RBC % Seg Neutrophils # Seg Neutrophils # Man Lymphocytes # (Manual) Monocytes # (Manual) Eosinophils # (Manual) PT INR Fibrinogen dRVVT Confirm Interp Factor V Activity POC ABG pH POC ABG pCO2 POC ABG pO2 Sodium 131 L Potassium Chloride 94.0 L Carbon Dioxide 20 L BUN 22 H Creatinine 2.0 H Glucose 123 H POC Glucose 166 H 179 H Lactic Acid Calcium 7.7 L Phosphorus 2.20 L D Magnesium Direct Bilirubin ALT Alkaline Phosphatase Troponin T C-Reactive Protein Total Protein Albumin Triglycerides Cholesterol LDL Cholesterol Direct HDL Cholesterol Urine WBC (Auto) Urine Creatinine Urine Total Protein Vancomycin Trough Rheumatoid Factor Complement C4 Miscellaneous Test Crossmatch 10/05/16 10/05/16 10/05/16 15:50 18:53 23:12 WBC RBC Hgb Hct MCV MCH MCHC RDW Plt Count Lymph % (Auto) Carbon % (Auto) Lymph # [place] # Baso # Seg Neutrophils % Seg Neuts % (Manual) Lymphocytes % (Manual) Monocytes % (Manual) Eosinophils % (Manual) Basophils % (Manual) Nucleated RBC % Seg Neutrophils # Seg Neutrophils # Man Lymphocytes # (Manual) Monocytes # (Manual) Eosinophils # (Manual) PT INR Fibrinogen dRVVT Confirm Interp Factor V Activity POC ABG pH POC ABG pCO2 POC ABG pO2 Sodium Potassium Chloride Carbon Dioxide BUN Creatinine Glucose POC Glucose 150 H 164 H Lactic Acid Calcium Phosphorus Magnesium Direct Bilirubin ALT Alkaline Phosphatase Troponin T C-Reactive Protein Total Protein Albumin Triglycerides Cholesterol LDL Cholesterol Direct HDL Cholesterol Urine WBC (Auto) Urine Creatinine Urine Total Protein Vancomycin Trough Rheumatoid Factor Complement C4 Miscellaneous Test Crossmatch See Detail 10/06/16 10/06/16 10/06/16 03:50 03:50 04:53 WBC RBC 3.00 L Hgb 8.6 L Hct 25.8 L MCV MCH MCHC RDW 17.9 H Plt Count 65 L Lymph % (Auto) Carbon % (Auto) Lymph # [place] # Baso # Seg Neutrophils % Seg Neuts % (Manual) 30.0 L Lymphocytes % (Manual) 5.0 L Monocytes % (Manual) Eosinophils % (Manual) Basophils % (Manual) Nucleated RBC % Seg Neutrophils # Seg Neutrophils # Man Lymphocytes # (Manual) 0.4 L Monocytes # (Manual) Eosinophils # (Manual) PT INR Fibrinogen dRVVT Confirm Interp Factor V Activity POC ABG pH 7.310 L POC ABG pCO2 49.0 H POC ABG pO2 Sodium 133 L Potassium Chloride 95.9 L Carbon Dioxide BUN 26 H Creatinine 2.0 H Glucose 116 H POC Glucose Lactic Acid Calcium 7.8 L Phosphorus Magnesium Direct Bilirubin ALT Alkaline Phosphatase Troponin T C-Reactive Protein Total Protein Albumin Triglycerides Cholesterol LDL Cholesterol Direct HDL Cholesterol Urine WBC (Auto) Urine Creatinine Urine Total Protein Vancomycin Trough Rheumatoid Factor Complement C4 Miscellaneous Test Crossmatch 10/06/16 10/06/16 10/06/16 05:23 11:52 18:34 WBC RBC Hgb Hct MCV MCH MCHC RDW Plt Count Lymph % (Auto) Carbon % (Auto) Lymph # [place] # Baso # Seg Neutrophils % Seg Neuts % (Manual) Lymphocytes % (Manual) Monocytes % (Manual) Eosinophils % (Manual) Basophils % (Manual) Nucleated RBC % Seg Neutrophils # Seg Neutrophils # Man Lymphocytes # (Manual) Monocytes # (Manual) Eosinophils # (Manual) PT INR Fibrinogen dRVVT Confirm Interp Factor V Activity POC ABG pH POC ABG pCO2 POC ABG pO2 Sodium Potassium Chloride Carbon Dioxide BUN Creatinine Glucose POC Glucose 126 H 116 H 129 H Lactic Acid Calcium Phosphorus Magnesium Direct Bilirubin ALT Alkaline Phosphatase Troponin T C-Reactive Protein Total Protein Albumin Triglycerides Cholesterol LDL Cholesterol Direct HDL Cholesterol Urine WBC (Auto) Urine Creatinine Urine Total Protein Vancomycin Trough Rheumatoid Factor Complement C4 Miscellaneous Test Crossmatch 10/07/16 10/07/16 10/07/16 03:45 05:00 10:00 WBC 17.0 H RBC 2.68 L Hgb 7.3 L Hct 25.3 L MCV MCH 27 L MCHC 29 L RDW 19.6 H Plt Count 74 L Lymph % (Auto) [place] % (Auto) Lymph # [place] # Baso # Seg Neutrophils % Seg Neuts % (Manual) Lymphocytes % (Manual) 12.0 L Monocytes % (Manual) Eosinophils % (Manual) Basophils % (Manual) Nucleated RBC % 4.0 H Seg Neutrophils # Seg Neutrophils # Man 10.7 H Lymphocytes # (Manual) Monocytes # (Manual) Eosinophils # (Manual) PT INR Fibrinogen dRVVT Confirm Interp Factor V Activity POC ABG pH POC ABG pCO2 POC ABG pO2 Sodium 130 L Potassium 3.2 L Chloride 93.9 L Carbon Dioxide 20 L BUN 44 H Creatinine 2.7 H Glucose 129 H POC Glucose Lactic Acid Calcium 7.4 L Phosphorus Magnesium Direct Bilirubin ALT 6 L Alkaline Phosphatase 195 H Troponin T C-Reactive Protein Total Protein 4.9 L Albumin 1.0 L Triglycerides Cholesterol LDL Cholesterol Direct HDL Cholesterol Urine WBC (Auto) Urine Creatinine Urine Total Protein Vancomycin Trough Rheumatoid Factor Complement C4 Miscellaneous Test Flexitest 1 H Crossmatch 10/07/16 10/07/16 10/07/16 10:00 11:24 18:10 WBC RBC Hgb Hct MCV MCH MCHC RDW Plt Count Lymph % (Auto) Carbon % (Auto) Lymph # [place] # Baso # Seg Neutrophils % Seg Neuts % (Manual) Lymphocytes % (Manual) Monocytes % (Manual) Eosinophils % (Manual) Basophils % (Manual) Nucleated RBC % Seg Neutrophils # Seg Neutrophils # Man Lymphocytes # (Manual) Monocytes # (Manual) Eosinophils # (Manual) PT INR Fibrinogen dRVVT Confirm Interp Factor V Activity POC ABG pH POC ABG pCO2 POC ABG pO2 Sodium Potassium Chloride Carbon Dioxide BUN Creatinine Glucose POC Glucose 116 H 130 H Lactic Acid Calcium Phosphorus Magnesium Direct Bilirubin ALT Alkaline Phosphatase Troponin T C-Reactive Protein 19.40 H Total Protein Albumin Triglycerides Cholesterol LDL Cholesterol Direct HDL Cholesterol Urine WBC (Auto) Urine Creatinine Urine Total Protein Vancomycin Trough Rheumatoid Factor Complement C4 Miscellaneous Test Crossmatch 10/07/16 10/08/16 10/08/16 18:30 00:00 04:00 WBC RBC Hgb Hct MCV MCH MCHC RDW Plt Count Lymph % (Auto) Carbon % (Auto) Lymph # [place] # Baso # Seg Neutrophils % Seg Neuts % (Manual) Lymphocytes % (Manual) Monocytes % (Manual) Eosinophils % (Manual) Basophils % (Manual) Nucleated RBC % Seg Neutrophils # Seg Neutrophils # Man Lymphocytes # (Manual) Monocytes # (Manual) Eosinophils # (Manual) PT INR Fibrinogen dRVVT Confirm Interp Factor V Activity POC ABG pH POC ABG pCO2 POC ABG pO2 Sodium 132 L Potassium 3.3 L Chloride 93.6 L Carbon Dioxide 17 L BUN 59 H Creatinine 2.7 H Glucose 121 H POC Glucose 122 H Lactic Acid Calcium 7.6 L Phosphorus Magnesium Direct Bilirubin ALT Alkaline Phosphatase Troponin T C-Reactive Protein Total Protein Albumin Triglycerides Cholesterol LDL Cholesterol Direct HDL Cholesterol Urine WBC (Auto) > 182.0 H Urine Creatinine Urine Total Protein Vancomycin Trough Rheumatoid Factor Complement C4 Miscellaneous Test Crossmatch 10/08/16 10/08/16 10/08/16 04:30 05:30 11:51 WBC RBC 5.15 H Hgb 14.4 H D Hct 44.5 H D MCV MCH MCHC RDW 19.5 H Plt Count 56 L Lymph % (Auto) Carbon % (Auto) Lymph # [place] # Baso # Seg Neutrophils % Seg Neuts % (Manual) 24.0 L Lymphocytes % (Manual) 8.0 L Monocytes % (Manual) Eosinophils % (Manual) Basophils % (Manual) Nucleated RBC % 9.0 H Seg Neutrophils # Seg Neutrophils # Man Lymphocytes # (Manual) 0.7 L Monocytes # (Manual) Eosinophils # (Manual) PT INR Fibrinogen dRVVT Confirm Interp Factor V Activity POC ABG pH POC ABG pCO2 POC ABG pO2 Sodium Potassium Chloride Carbon Dioxide BUN Creatinine Glucose POC Glucose 125 H 150 H Lactic Acid Calcium Phosphorus Magnesium Direct Bilirubin ALT Alkaline Phosphatase Troponin T C-Reactive Protein Total Protein Albumin Triglycerides Cholesterol LDL Cholesterol Direct HDL Cholesterol Urine WBC (Auto) Urine Creatinine Urine Total Protein Vancomycin Trough Rheumatoid Factor Complement C4 Miscellaneous Test Crossmatch 10/08/16 10/08/16 10/08/16 12:49 17:07 19:30 WBC RBC Hgb 7.1 L D Hct 22.4 L D MCV MCH MCHC RDW Plt Count Lymph % (Auto) Carbon % (Auto) Lymph # [place] # Baso # Seg Neutrophils % Seg Neuts % (Manual) Lymphocytes % (Manual) Monocytes % (Manual) Eosinophils % (Manual) Basophils % (Manual) Nucleated RBC % Seg Neutrophils # Seg Neutrophils # Man Lymphocytes # (Manual) Monocytes # (Manual) Eosinophils # (Manual) PT INR Fibrinogen dRVVT Confirm Interp Factor V Activity POC ABG pH POC ABG pCO2 28.2 L POC ABG pO2 111 H Sodium Potassium Chloride Carbon Dioxide BUN Creatinine Glucose POC Glucose 145 H Lactic Acid Calcium Phosphorus Magnesium Direct Bilirubin ALT Alkaline Phosphatase Troponin T C-Reactive Protein Total Protein Albumin Triglycerides Cholesterol LDL Cholesterol Direct HDL Cholesterol Urine WBC (Auto) Urine Creatinine Urine Total Protein Vancomycin Trough Rheumatoid Factor Complement C4 Miscellaneous Test Crossmatch 10/08/16 10/09/16 10/09/16 19:30 03:45 03:45 WBC 12.6 H RBC 2.36 L Hgb 6.7 L Hct 21.1 L MCV MCH MCHC RDW 19.5 H Plt Count 75 L Lymph % (Auto) [place] % (Auto) Lymph # [place] # Baso # Seg Neutrophils % Seg Neuts % (Manual) Lymphocytes % (Manual) Monocytes % (Manual) 10.0 H Eosinophils % (Manual) Basophils % (Manual) Nucleated RBC % 3.0 H Seg Neutrophils # Seg Neutrophils # Man Lymphocytes # (Manual) Monocytes # (Manual) 1.3 H Eosinophils # (Manual) PT 18.0 H INR 1.41 H Fibrinogen dRVVT Confirm Interp Factor V Activity POC ABG pH POC ABG pCO2 POC ABG pO2 Sodium 135 L Potassium Chloride Carbon Dioxide 17 L BUN 81 H Creatinine 3.2 H Glucose 109 H POC Glucose Lactic Acid Calcium 7.4 L Phosphorus 4.60 H D Magnesium Direct Bilirubin ALT Alkaline Phosphatase Troponin T C-Reactive Protein Total Protein Albumin Triglycerides Cholesterol LDL Cholesterol Direct HDL Cholesterol Urine WBC (Auto) Urine Creatinine Urine Total Protein Vancomycin Trough Rheumatoid Factor Complement C4 Miscellaneous Test Crossmatch 10/09/16 10/09/16 10/09/16 03:45 05:14 07:20 WBC RBC Hgb Hct MCV MCH MCHC RDW Plt Count Lymph % (Auto) [place] % (Auto) Lymph # [place] # Baso # Seg Neutrophils % Seg Neuts % (Manual) Lymphocytes % (Manual) Monocytes % (Manual) Eosinophils % (Manual) Basophils % (Manual) Nucleated RBC % Seg Neutrophils # Seg Neutrophils # Man Lymphocytes # (Manual) Monocytes # (Manual) Eosinophils # (Manual) PT 19.0 H INR 1.51 H Fibrinogen dRVVT Confirm Interp Factor V Activity POC ABG pH POC ABG pCO2 POC ABG pO2 Sodium Potassium Chloride Carbon Dioxide BUN Creatinine Glucose POC Glucose 151 H Lactic Acid Calcium Phosphorus Magnesium Direct Bilirubin ALT Alkaline Phosphatase Troponin T C-Reactive Protein Total Protein Albumin Triglycerides Cholesterol LDL Cholesterol Direct HDL Cholesterol Urine WBC (Auto) Urine Creatinine Urine Total Protein Vancomycin Trough Rheumatoid Factor Complement C4 Miscellaneous Test Crossmatch See Detail 10/09/16 10/09/16 10/09/16 11:46 16:20 16:43 WBC RBC Hgb 7.2 L Hct 22.2 L MCV MCH MCHC RDW Plt Count Lymph % (Auto) [place] % (Auto) Lymph # [place] # Baso # Seg Neutrophils % Seg Neuts % (Manual) Lymphocytes % (Manual) Monocytes % (Manual) Eosinophils % (Manual) Basophils % (Manual) Nucleated RBC % Seg Neutrophils # Seg Neutrophils # Man Lymphocytes # (Manual) Monocytes # (Manual) Eosinophils # (Manual) PT INR Fibrinogen dRVVT Confirm Interp Factor V Activity POC ABG pH POC ABG pCO2 POC ABG pO2 Sodium Potassium Chloride Carbon Dioxide BUN Creatinine Glucose POC Glucose 133 H 141 H Lactic Acid Calcium Phosphorus Magnesium Direct Bilirubin ALT Alkaline Phosphatase Troponin T C-Reactive Protein Total Protein Albumin Triglycerides Cholesterol LDL Cholesterol Direct HDL Cholesterol Urine WBC (Auto) Urine Creatinine Urine Total Protein Vancomycin Trough Rheumatoid Factor Complement C4 Miscellaneous Test Crossmatch 10/10/16 10/10/16 10/10/16 05:00 05:00 11:19 WBC 18.5 H RBC 2.19 L Hgb 6.4 L Hct 19.6 L* MCV MCH MCHC RDW 19.3 H Plt Count 93 L Lymph % (Auto) [place] % (Auto) Lymph # [place] # Baso # Seg Neutrophils % Seg Neuts % (Manual) Lymphocytes % (Manual) 10.0 L Monocytes % (Manual) Eosinophils % (Manual) Basophils % (Manual) Nucleated RBC % 4.0 H Seg Neutrophils # Seg Neutrophils # Man 11.3 H Lymphocytes # (Manual) Monocytes # (Manual) Eosinophils # (Manual) PT INR Fibrinogen dRVVT Confirm Interp Factor V Activity POC ABG pH POC ABG pCO2 POC ABG pO2 Sodium Potassium 5.7 H D Chloride Carbon Dioxide 16 L BUN 94 H Creatinine 3.1 H Glucose 131 H POC Glucose 153 H Lactic Acid Calcium 8.2 L Phosphorus 5.10 H Magnesium 2.40 H Direct Bilirubin 0.3 H ALT < 5 L Alkaline Phosphatase 319 H Troponin T C-Reactive Protein Total Protein 5.1 L Albumin 1.0 L Triglycerides Cholesterol LDL Cholesterol Direct HDL Cholesterol Urine WBC (Auto) Urine Creatinine Urine Total Protein Vancomycin Trough Rheumatoid Factor Complement C4 Miscellaneous Test Crossmatch 10/10/16 10/10/16 10/11/16 17:50 23:30 04:15 WBC RBC Hgb Hct MCV MCH MCHC RDW Plt Count Lymph % (Auto) [place] % (Auto) Lymph # [place] # Baso # Seg Neutrophils % Seg Neuts % (Manual) Lymphocytes % (Manual) Monocytes % (Manual) Eosinophils % (Manual) Basophils % (Manual) Nucleated RBC % Seg Neutrophils # Seg Neutrophils # Man Lymphocytes # (Manual) Monocytes # (Manual) Eosinophils # (Manual) PT INR Fibrinogen dRVVT Confirm Interp Factor V Activity POC ABG pH POC ABG pCO2 POC ABG pO2 Sodium Potassium Chloride 96.4 L Carbon Dioxide 21 L BUN 57 H Creatinine 2.1 H Glucose 151 H POC Glucose 146 H 141 H Lactic Acid Calcium 8.3 L Phosphorus Magnesium Direct Bilirubin ALT Alkaline Phosphatase Troponin T C-Reactive Protein Total Protein Albumin Triglycerides Cholesterol LDL Cholesterol Direct HDL Cholesterol Urine WBC (Auto) Urine Creatinine Urine Total Protein Vancomycin Trough Rheumatoid Factor Complement C4 Miscellaneous Test Crossmatch 10/11/16 10/11/16 10/11/16 04:15 04:15 05:30 WBC 28.3 H RBC 3.12 L Hgb 9.3 L Hct 28.7 L D MCV MCH MCHC RDW 17.7 H Plt Count 128 L Lymph % (Auto) [place] % (Auto) Lymph # [place] # Baso # Seg Neutrophils % Seg Neuts % (Manual) Lymphocytes % (Manual) Monocytes % (Manual) Eosinophils % (Manual) Basophils % (Manual) Nucleated RBC % Seg Neutrophils # Seg Neutrophils # Man Lymphocytes # (Manual) Monocytes # (Manual) Eosinophils # (Manual) PT INR Fibrinogen dRVVT Confirm Interp Factor V Activity POC ABG pH POC ABG pCO2 POC ABG pO2 Sodium Potassium Chloride Carbon Dioxide BUN Creatinine Glucose POC Glucose 167 H Lactic Acid Calcium Phosphorus Magnesium Direct Bilirubin ALT Alkaline Phosphatase Troponin T C-Reactive Protein 15.80 H Total Protein Albumin Triglycerides Cholesterol LDL Cholesterol Direct HDL Cholesterol Urine WBC (Auto) Urine Creatinine Urine Total Protein Vancomycin Trough Rheumatoid Factor Complement C4 Miscellaneous Test Crossmatch 10/11/16 10/11/16 10/11/16 11:40 15:49 23:57 WBC RBC Hgb Hct MCV MCH MCHC RDW Plt Count Lymph % (Auto) [place] % (Auto) Lymph # [place] # Baso # Seg Neutrophils % Seg Neuts % (Manual) Lymphocytes % (Manual) Monocytes % (Manual) Eosinophils % (Manual) Basophils % (Manual) Nucleated RBC % Seg Neutrophils # Seg Neutrophils # Man Lymphocytes # (Manual) Monocytes # (Manual) Eosinophils # (Manual) PT INR Fibrinogen dRVVT Confirm Interp Factor V Activity POC ABG pH POC ABG pCO2 POC ABG pO2 Sodium Potassium Chloride Carbon Dioxide BUN Creatinine Glucose POC Glucose 139 H 168 H 161 H Lactic Acid Calcium Phosphorus Magnesium Direct Bilirubin ALT Alkaline Phosphatase Troponin T C-Reactive Protein Total Protein Albumin Triglycerides Cholesterol LDL Cholesterol Direct HDL Cholesterol Urine WBC (Auto) Urine Creatinine Urine Total Protein Vancomycin Trough Rheumatoid Factor Complement C4 Miscellaneous Test Crossmatch 10/12/16 10/12/16 10/12/16 04:40 04:40 05:44 WBC 22.5 H RBC 2.88 L Hgb 8.8 L Hct 26.8 L MCV MCH MCHC RDW 17.8 H Plt Count Lymph % (Auto) Carbon % (Auto) Lymph # [place] # Baso # Seg Neutrophils % Seg Neuts % (Manual) Lymphocytes % (Manual) Monocytes % (Manual) Eosinophils % (Manual) Basophils % (Manual) Nucleated RBC % Seg Neutrophils # Seg Neutrophils # Man Lymphocytes # (Manual) Monocytes # (Manual) Eosinophils # (Manual) PT INR Fibrinogen dRVVT Confirm Interp Factor V Activity POC ABG pH POC ABG pCO2 POC ABG pO2 Sodium 134 L Potassium Chloride 93.0 L Carbon Dioxide BUN 74 H Creatinine 2.5 H Glucose 137 H POC Glucose 158 H Lactic Acid Calcium 8.2 L Phosphorus Magnesium Direct Bilirubin ALT Alkaline Phosphatase Troponin T C-Reactive Protein Total Protein Albumin Triglycerides Cholesterol LDL Cholesterol Direct HDL Cholesterol Urine WBC (Auto) Urine Creatinine Urine Total Protein Vancomycin Trough Rheumatoid Factor Complement C4 Miscellaneous Test Crossmatch 10/12/16 10/12/16 10/12/16 12:27 18:18 23:46 WBC RBC Hgb Hct MCV MCH MCHC RDW Plt Count Lymph % (Auto) [place] % (Auto) Lymph # [place] # Baso # Seg Neutrophils % Seg Neuts % (Manual) Lymphocytes % (Manual) Monocytes % (Manual) Eosinophils % (Manual) Basophils % (Manual) Nucleated RBC % Seg Neutrophils # Seg Neutrophils # Man Lymphocytes # (Manual) Monocytes # (Manual) Eosinophils # (Manual) PT INR Fibrinogen dRVVT Confirm Interp Factor V Activity POC ABG pH POC ABG pCO2 POC ABG pO2 Sodium Potassium Chloride Carbon Dioxide BUN Creatinine Glucose POC Glucose 153 H 140 H 150 H Lactic Acid Calcium Phosphorus Magnesium Direct Bilirubin ALT Alkaline Phosphatase Troponin T C-Reactive Protein Total Protein Albumin Triglycerides Cholesterol LDL Cholesterol Direct HDL Cholesterol Urine WBC (Auto) Urine Creatinine Urine Total Protein Vancomycin Trough Rheumatoid Factor Complement C4 Miscellaneous Test Crossmatch 10/13/16 10/13/16 10/13/16 06:22 09:20 12:29 WBC RBC Hgb Hct MCV MCH MCHC RDW Plt Count Lymph % (Auto) [place] % (Auto) Lymph # [place] # Baso # Seg Neutrophils % Seg Neuts % (Manual) Lymphocytes % (Manual) Monocytes % (Manual) Eosinophils % (Manual) Basophils % (Manual) Nucleated RBC % Seg Neutrophils # Seg Neutrophils # Man Lymphocytes # (Manual) Monocytes # (Manual) Eosinophils # (Manual) PT INR Fibrinogen dRVVT Confirm Interp Factor V Activity POC ABG pH POC ABG pCO2 POC ABG pO2 Sodium Potassium Chloride Carbon Dioxide BUN Creatinine Glucose POC Glucose 165 H 193 H Lactic Acid Calcium Phosphorus Magnesium Direct Bilirubin ALT Alkaline Phosphatase Troponin T C-Reactive Protein Total Protein Albumin Triglycerides Cholesterol LDL Cholesterol Direct HDL Cholesterol Urine WBC (Auto) Urine Creatinine Urine Total Protein Vancomycin Trough Rheumatoid Factor Complement C4 Miscellaneous Test Flexitest 1 H Crossmatch 10/13/16 10/13/16 10/13/16 18:09 Unknown Unknown WBC 23.4 H RBC 2.83 L Hgb 8.7 L Hct 26.1 L MCV MCH MCHC RDW 18.1 H Plt Count Lymph % (Auto) [place] % (Auto) Lymph # [place] # Baso # Seg Neutrophils % Seg Neuts % (Manual) Lymphocytes % (Manual) Monocytes % (Manual) Eosinophils % (Manual) Basophils % (Manual) Nucleated RBC % Seg Neutrophils # Seg Neutrophils # Man Lymphocytes # (Manual) Monocytes # (Manual) Eosinophils # (Manual) PT INR Fibrinogen dRVVT Confirm Interp Factor V Activity POC ABG pH POC ABG pCO2 POC ABG pO2 Sodium Potassium Chloride 95.8 L Carbon Dioxide BUN 82 H Creatinine 2.6 H Glucose 152 H POC Glucose 166 H Lactic Acid Calcium Phosphorus Magnesium Direct Bilirubin ALT Alkaline Phosphatase Troponin T C-Reactive Protein Total Protein Albumin Triglycerides Cholesterol LDL Cholesterol Direct HDL Cholesterol Urine WBC (Auto) Urine Creatinine Urine Total Protein Vancomycin Trough Rheumatoid Factor Complement C4 Miscellaneous Test Crossmatch 10/14/16 10/14/16 10/14/16 05:38 06:35 08:10 WBC 20.7 H RBC 2.81 L Hgb 8.4 L Hct 27.2 L MCV MCH MCHC RDW 19.4 H Plt Count Lymph % (Auto) [place] % (Auto) Lymph # [place] # Baso # Seg Neutrophils % Seg Neuts % (Manual) Lymphocytes % (Manual) Monocytes % (Manual) Eosinophils % (Manual) Basophils % (Manual) Nucleated RBC % Seg Neutrophils # Seg Neutrophils # Man Lymphocytes # (Manual) Monocytes # (Manual) Eosinophils # (Manual) PT INR Fibrinogen dRVVT Confirm Interp Factor V Activity POC ABG pH POC ABG pCO2 POC ABG pO2 Sodium Potassium Chloride Carbon Dioxide BUN 58 H Creatinine 1.9 H Glucose 169 H POC Glucose 195 H Lactic Acid Calcium Phosphorus Magnesium Direct Bilirubin ALT Alkaline Phosphatase Troponin T C-Reactive Protein Total Protein Albumin Triglycerides Cholesterol LDL Cholesterol Direct HDL Cholesterol Urine WBC (Auto) Urine Creatinine Urine Total Protein Vancomycin Trough Rheumatoid Factor Complement C4 Miscellaneous Test Crossmatch 10/14/16 10/14/16 10/14/16 11:44 17:13 23:28 WBC RBC Hgb Hct MCV MCH MCHC RDW Plt Count Lymph % (Auto) [place] % (Auto) Lymph # [place] # Baso # Seg Neutrophils % Seg Neuts % (Manual) Lymphocytes % (Manual) Monocytes % (Manual) Eosinophils % (Manual) Basophils % (Manual) Nucleated RBC % Seg Neutrophils # Seg Neutrophils # Man Lymphocytes # (Manual) Monocytes # (Manual) Eosinophils # (Manual) PT INR Fibrinogen dRVVT Confirm Interp Factor V Activity POC ABG pH POC ABG pCO2 POC ABG pO2 Sodium Potassium Chloride Carbon Dioxide BUN Creatinine Glucose POC Glucose 174 H 121 H 151 H Lactic Acid Calcium Phosphorus Magnesium Direct Bilirubin ALT Alkaline Phosphatase Troponin T C-Reactive Protein Total Protein Albumin Triglycerides Cholesterol LDL Cholesterol Direct HDL Cholesterol Urine WBC (Auto) Urine Creatinine Urine Total Protein Vancomycin Trough Rheumatoid Factor Complement C4 Miscellaneous Test Crossmatch 10/15/16 10/15/16 10/15/16 05:06 12:26 17:48 WBC RBC Hgb Hct MCV MCH MCHC RDW Plt Count Lymph % (Auto) [place] % (Auto) Lymph # [place] # Baso # Seg Neutrophils % Seg Neuts % (Manual) Lymphocytes % (Manual) Monocytes % (Manual) Eosinophils % (Manual) Basophils % (Manual) Nucleated RBC % Seg Neutrophils # Seg Neutrophils # Man Lymphocytes # (Manual) Monocytes # (Manual) Eosinophils # (Manual) PT INR Fibrinogen dRVVT Confirm Interp Factor V Activity POC ABG pH POC ABG pCO2 POC ABG pO2 Sodium Potassium Chloride Carbon Dioxide BUN Creatinine Glucose POC Glucose 151 H 149 H 153 H Lactic Acid Calcium Phosphorus Magnesium Direct Bilirubin ALT Alkaline Phosphatase Troponin T C-Reactive Protein Total Protein Albumin Triglycerides Cholesterol LDL Cholesterol Direct HDL Cholesterol Urine WBC (Auto) Urine Creatinine Urine Total Protein Vancomycin Trough Rheumatoid Factor Complement C4 Miscellaneous Test Crossmatch 10/15/16 10/15/16 10/16/16 Unknown Unknown 00:02 WBC 23.4 H RBC 2.78 L Hgb 8.5 L Hct 25.7 L MCV MCH MCHC RDW 18.7 H Plt Count Lymph % (Auto) [place] % (Auto) Lymph # [place] # Baso # Seg Neutrophils % Seg Neuts % (Manual) Lymphocytes % (Manual) Monocytes % (Manual) Eosinophils % (Manual) Basophils % (Manual) Nucleated RBC % Seg Neutrophils # Seg Neutrophils # Man Lymphocytes # (Manual) Monocytes # (Manual) Eosinophils # (Manual) PT INR Fibrinogen dRVVT Confirm Interp Factor V Activity POC ABG pH POC ABG pCO2 POC ABG pO2 Sodium Potassium Chloride Carbon Dioxide BUN 73 H Creatinine 2.3 H Glucose 120 H POC Glucose 137 H Lactic Acid Calcium Phosphorus Magnesium Direct Bilirubin ALT Alkaline Phosphatase Troponin T C-Reactive Protein Total Protein Albumin Triglycerides Cholesterol LDL Cholesterol Direct HDL Cholesterol Urine WBC (Auto) Urine Creatinine Urine Total Protein Vancomycin Trough Rheumatoid Factor Complement C4 Miscellaneous Test Crossmatch 10/16/16 10/16/16 10/16/16 05:44 06:25 06:25 WBC 22.5 H RBC 2.76 L Hgb 8.3 L Hct 25.2 L MCV MCH MCHC RDW 18.3 H Plt Count Lymph % (Auto) [place] % (Auto) Lymph # [place] # Baso # Seg Neutrophils % Seg Neuts % (Manual) Lymphocytes % (Manual) Monocytes % (Manual) Eosinophils % (Manual) Basophils % (Manual) Nucleated RBC % Seg Neutrophils # Seg Neutrophils # Man Lymphocytes # (Manual) Monocytes # (Manual) Eosinophils # (Manual) PT INR Fibrinogen dRVVT Confirm Interp Factor V Activity POC ABG pH POC ABG pCO2 POC ABG pO2 Sodium Potassium Chloride Carbon Dioxide BUN 92 H Creatinine 3.0 H Glucose 138 H POC Glucose 110 H Lactic Acid Calcium Phosphorus Magnesium Direct Bilirubin ALT Alkaline Phosphatase Troponin T C-Reactive Protein Total Protein Albumin Triglycerides Cholesterol LDL Cholesterol Direct HDL Cholesterol Urine WBC (Auto) Urine Creatinine Urine Total Protein Vancomycin Trough Rheumatoid Factor Complement C4 Miscellaneous Test Crossmatch 10/16/16 10/16/16 10/16/16 11:27 11:48 17:36 WBC RBC Hgb Hct MCV MCH MCHC RDW Plt Count Lymph % (Auto) [place] % (Auto) Lymph # [place] # Baso # Seg Neutrophils % Seg Neuts % (Manual) Lymphocytes % (Manual) Monocytes % (Manual) Eosinophils % (Manual) Basophils % (Manual) Nucleated RBC % Seg Neutrophils # Seg Neutrophils # Man Lymphocytes # (Manual) Monocytes # (Manual) Eosinophils # (Manual) PT INR Fibrinogen dRVVT Confirm Interp Factor V Activity POC ABG pH 7.582 H POC ABG pCO2 27.4 L POC ABG pO2 110 H Sodium Potassium Chloride Carbon Dioxide BUN Creatinine Glucose POC Glucose 121 H 133 H Lactic Acid Calcium Phosphorus Magnesium Direct Bilirubin ALT Alkaline Phosphatase Troponin T C-Reactive Protein Total Protein Albumin Triglycerides Cholesterol LDL Cholesterol Direct HDL Cholesterol Urine WBC (Auto) Urine Creatinine Urine Total Protein Vancomycin Trough Rheumatoid Factor Complement C4 Miscellaneous Test Crossmatch 10/16/16 10/17/16 10/17/16 20:48 04:24 04:24 WBC 21.4 H RBC 2.72 L Hgb 8.0 L Hct 25.2 L MCV MCH MCHC RDW 18.0 H Plt Count Lymph % (Auto) [place] % (Auto) Lymph # [place] # Baso # Seg Neutrophils % Seg Neuts % (Manual) Lymphocytes % (Manual) Monocytes % (Manual) Eosinophils % (Manual) Basophils % (Manual) Nucleated RBC % Seg Neutrophils # Seg Neutrophils # Man Lymphocytes # (Manual) Monocytes # (Manual) Eosinophils # (Manual) PT INR Fibrinogen dRVVT Confirm Interp Factor V Activity POC ABG pH 7.561 H POC ABG pCO2 24.4 L POC ABG pO2 77 L Sodium 148 H Potassium Chloride Carbon Dioxide BUN 104 H Creatinine 3.0 H Glucose 149 H POC Glucose Lactic Acid Calcium Phosphorus Magnesium Direct Bilirubin ALT Alkaline Phosphatase 138 H Troponin T C-Reactive Protein Total Protein 6.2 L Albumin 1.5 L Triglycerides Cholesterol LDL Cholesterol Direct HDL Cholesterol Urine WBC (Auto) Urine Creatinine Urine Total Protein Vancomycin Trough Rheumatoid Factor Complement C4 Miscellaneous Test Crossmatch 10/17/16 10/17/16 10/17/16 06:02 12:17 17:14 WBC RBC Hgb Hct MCV MCH MCHC RDW Plt Count Lymph % (Auto) [place] % (Auto) Lymph # [place] # Baso # Seg Neutrophils % Seg Neuts % (Manual) Lymphocytes % (Manual) Monocytes % (Manual) Eosinophils % (Manual) Basophils % (Manual) Nucleated RBC % Seg Neutrophils # Seg Neutrophils # Man Lymphocytes # (Manual) Monocytes # (Manual) Eosinophils # (Manual) PT INR Fibrinogen dRVVT Confirm Interp Factor V Activity POC ABG pH POC ABG pCO2 POC ABG pO2 Sodium Potassium Chloride Carbon Dioxide BUN Creatinine Glucose POC Glucose 170 H 167 H 126 H Lactic Acid Calcium Phosphorus Magnesium Direct Bilirubin ALT Alkaline Phosphatase Troponin T C-Reactive Protein Total Protein Albumin Triglycerides Cholesterol LDL Cholesterol Direct HDL Cholesterol Urine WBC (Auto) Urine Creatinine Urine Total Protein Vancomycin Trough Rheumatoid Factor Complement C4 Miscellaneous Test Crossmatch 10/17/16 10/18/16 10/18/16 23:17 04:00 04:00 WBC 20.7 H RBC 2.47 L Hgb 7.4 L Hct 22.9 L MCV MCH MCHC RDW 17.5 H Plt Count Lymph % (Auto) [place] % (Auto) Lymph # [place] # Baso # Seg Neutrophils % Seg Neuts % (Manual) Lymphocytes % (Manual) Monocytes % (Manual) Eosinophils % (Manual) Basophils % (Manual) Nucleated RBC % Seg Neutrophils # Seg Neutrophils # Man Lymphocytes # (Manual) Monocytes # (Manual) Eosinophils # (Manual) PT INR Fibrinogen dRVVT Confirm Interp Factor V Activity POC ABG pH POC ABG pCO2 POC ABG pO2 Sodium 149 H Potassium Chloride 107.9 H Carbon Dioxide 20 L BUN 117 H Creatinine 3.2 H Glucose 119 H POC Glucose 121 H Lactic Acid Calcium Phosphorus Magnesium Direct Bilirubin ALT Alkaline Phosphatase Troponin T C-Reactive Protein Total Protein Albumin Triglycerides Cholesterol LDL Cholesterol Direct HDL Cholesterol Urine WBC (Auto) Urine Creatinine Urine Total Protein Vancomycin Trough Rheumatoid Factor Complement C4 Miscellaneous Test Crossmatch 10/18/16 10/18/16 10/18/16 05:23 10:46 17:30 WBC RBC Hgb Hct MCV MCH MCHC RDW Plt Count Lymph % (Auto) [place] % (Auto) Lymph # [place] # Baso # Seg Neutrophils % Seg Neuts % (Manual) Lymphocytes % (Manual) Monocytes % (Manual) Eosinophils % (Manual) Basophils % (Manual) Nucleated RBC % Seg Neutrophils # Seg Neutrophils # Man Lymphocytes # (Manual) Monocytes # (Manual) Eosinophils # (Manual) PT INR Fibrinogen dRVVT Confirm Interp Factor V Activity POC ABG pH POC ABG pCO2 POC ABG pO2 Sodium Potassium Chloride Carbon Dioxide BUN Creatinine Glucose POC Glucose 119 H 155 H 124 H Lactic Acid Calcium Phosphorus Magnesium Direct Bilirubin ALT Alkaline Phosphatase Troponin T C-Reactive Protein Total Protein Albumin Triglycerides Cholesterol LDL Cholesterol Direct HDL Cholesterol Urine WBC (Auto) Urine Creatinine Urine Total Protein Vancomycin Trough Rheumatoid Factor Complement C4 Miscellaneous Test Crossmatch 10/19/16 10/19/16 10/19/16 04:00 04:00 05:25 WBC 17.4 H RBC 2.54 L Hgb 7.7 L Hct 23.6 L MCV MCH MCHC RDW 17.3 H Plt Count Lymph % (Auto) [place] % (Auto) Lymph # [place] # Baso # Seg Neutrophils % Seg Neuts % (Manual) Lymphocytes % (Manual) Monocytes % (Manual) Eosinophils % (Manual) Basophils % (Manual) Nucleated RBC % Seg Neutrophils # Seg Neutrophils # Man Lymphocytes # (Manual) Monocytes # (Manual) Eosinophils # (Manual) PT INR Fibrinogen dRVVT Confirm Interp Factor V Activity POC ABG pH POC ABG pCO2 POC ABG pO2 Sodium Potassium Chloride Carbon Dioxide BUN 72 H Creatinine 2.1 H Glucose 116 H POC Glucose 119 H Lactic Acid Calcium Phosphorus Magnesium Direct Bilirubin ALT Alkaline Phosphatase Troponin T C-Reactive Protein Total Protein Albumin Triglycerides Cholesterol LDL Cholesterol Direct HDL Cholesterol Urine WBC (Auto) Urine Creatinine Urine Total Protein Vancomycin Trough Rheumatoid Factor Complement C4 Miscellaneous Test Crossmatch 10/19/16 10/19/16 10/20/16 11:46 23:59 06:00 WBC RBC Hgb Hct MCV MCH MCHC RDW Plt Count Lymph % (Auto) [place] % (Auto) Lymph # [place] # Baso # Seg Neutrophils % Seg Neuts % (Manual) Lymphocytes % (Manual) Monocytes % (Manual) Eosinophils % (Manual) Basophils % (Manual) Nucleated RBC % Seg Neutrophils # Seg Neutrophils # Man Lymphocytes # (Manual) Monocytes # (Manual) Eosinophils # (Manual) PT INR Fibrinogen dRVVT Confirm Interp Factor V Activity POC ABG pH POC ABG pCO2 POC ABG pO2 Sodium Potassium Chloride Carbon Dioxide 17 L BUN 94 H Creatinine 2.7 H Glucose POC Glucose 116 H 117 H Lactic Acid Calcium Phosphorus Magnesium Direct Bilirubin ALT Alkaline Phosphatase Troponin T C-Reactive Protein Total Protein Albumin Triglycerides Cholesterol LDL Cholesterol Direct HDL Cholesterol Urine WBC (Auto) Urine Creatinine Urine Total Protein Vancomycin Trough Rheumatoid Factor Complement C4 Miscellaneous Test Crossmatch 10/20/16 10/20/16 10/20/16 06:00 11:49 16:00 WBC 19.7 H RBC 2.51 L Hgb 7.7 L Hct 23.5 L MCV MCH MCHC RDW 17.5 H Plt Count Lymph % (Auto) [place] % (Auto) Lymph # [place] # Baso # Seg Neutrophils % Seg Neuts % (Manual) Lymphocytes % (Manual) Monocytes % (Manual) Eosinophils % (Manual) Basophils % (Manual) Nucleated RBC % Seg Neutrophils # Seg Neutrophils # Man Lymphocytes # (Manual) Monocytes # (Manual) Eosinophils # (Manual) PT INR Fibrinogen dRVVT Confirm Interp Factor V Activity POC ABG pH POC ABG pCO2 POC ABG pO2 Sodium Potassium Chloride Carbon Dioxide BUN Creatinine Glucose POC Glucose 117 H Lactic Acid Calcium Phosphorus Magnesium Direct Bilirubin ALT Alkaline Phosphatase Troponin T C-Reactive Protein Total Protein Albumin Triglycerides Cholesterol LDL Cholesterol Direct HDL Cholesterol Urine WBC (Auto) Urine Creatinine Urine Total Protein Vancomycin Trough Rheumatoid Factor Complement C4 Miscellaneous Test Flexitest 1 H Crossmatch 10/20/16 10/20/16 10/21/16 18:36 23:39 04:00 WBC RBC Hgb Hct MCV MCH MCHC RDW Plt Count Lymph % (Auto) [place] % (Auto) Lymph # [place] # Baso # Seg Neutrophils % Seg Neuts % (Manual) Lymphocytes % (Manual) Monocytes % (Manual) Eosinophils % (Manual) Basophils % (Manual) Nucleated RBC % Seg Neutrophils # Seg Neutrophils # Man Lymphocytes # (Manual) Monocytes # (Manual) Eosinophils # (Manual) PT INR Fibrinogen dRVVT Confirm Interp Factor V Activity POC ABG pH POC ABG pCO2 POC ABG pO2 Sodium Potassium 5.4 H D Chloride Carbon Dioxide 15 L BUN 110 H Creatinine 3.0 H Glucose POC Glucose 127 H 114 H Lactic Acid Calcium Phosphorus Magnesium Direct Bilirubin ALT Alkaline Phosphatase Troponin T C-Reactive Protein Total Protein Albumin Triglycerides Cholesterol LDL Cholesterol Direct HDL Cholesterol Urine WBC (Auto) Urine Creatinine Urine Total Protein Vancomycin Trough Rheumatoid Factor Complement C4 Miscellaneous Test Crossmatch 10/21/16 10/21/16 10/22/16 05:54 23:46 05:18 WBC RBC Hgb Hct MCV MCH MCHC RDW Plt Count Lymph % (Auto) [place] % (Auto) Lymph # [place] # Baso # Seg Neutrophils % Seg Neuts % (Manual) Lymphocytes % (Manual) Monocytes % (Manual) Eosinophils % (Manual) Basophils % (Manual) Nucleated RBC % Seg Neutrophils # Seg Neutrophils # Man Lymphocytes # (Manual) Monocytes # (Manual) Eosinophils # (Manual) PT INR Fibrinogen dRVVT Confirm Interp Factor V Activity POC ABG pH POC ABG pCO2 POC ABG pO2 Sodium Potassium Chloride Carbon Dioxide BUN Creatinine Glucose POC Glucose 119 H 108 H 109 H Lactic Acid Calcium Phosphorus Magnesium Direct Bilirubin ALT Alkaline Phosphatase Troponin T C-Reactive Protein Total Protein Albumin Triglycerides Cholesterol LDL Cholesterol Direct HDL Cholesterol Urine WBC (Auto) Urine Creatinine Urine Total Protein Vancomycin Trough Rheumatoid Factor Complement C4 Miscellaneous Test Crossmatch 10/22/16 10/22/16 10/22/16 06:40 06:40 06:40 WBC 14.0 H RBC 2.03 L Hgb 7.0 L Hct 20.5 L MCV 98 H MCH 34 H MCHC 35 H RDW 17.8 H Plt Count Lymph % (Auto) [place] % (Auto) 9.9 H Lymph # [place] # 1.4 H Baso # 0.2 H Seg Neutrophils % 72.0 H Seg Neuts % (Manual) Lymphocytes % (Manual) Monocytes % (Manual) Eosinophils % (Manual) Basophils % (Manual) Nucleated RBC % Seg Neutrophils # 10.0 H Seg Neutrophils # Man Lymphocytes # (Manual) Monocytes # (Manual) Eosinophils # (Manual) PT INR Fibrinogen dRVVT Confirm Interp Factor V Activity POC ABG pH POC ABG pCO2 POC ABG pO2 Sodium 130 L D Potassium Chloride 92.4 L Carbon Dioxide 20 L BUN 50 H Creatinine 1.6 H Glucose 589 H* POC Glucose Lactic Acid Calcium 7.8 L D Phosphorus Magnesium 1.60 L Direct Bilirubin ALT Alkaline Phosphatase Troponin T C-Reactive Protein Total Protein Albumin Triglycerides Cholesterol LDL Cholesterol Direct HDL Cholesterol Urine WBC (Auto) Urine Creatinine Urine Total Protein Vancomycin Trough Rheumatoid Factor Complement C4 Miscellaneous Test Crossmatch 10/22/16 10/22/16 10/22/16 11:39 16:44 23:36 WBC RBC Hgb Hct MCV MCH MCHC RDW Plt Count Lymph % (Auto) [place] % (Auto) Lymph # [place] # Baso # Seg Neutrophils % Seg Neuts % (Manual) Lymphocytes % (Manual) Monocytes % (Manual) Eosinophils % (Manual) Basophils % (Manual) Nucleated RBC % Seg Neutrophils # Seg Neutrophils # Man Lymphocytes # (Manual) Monocytes # (Manual) Eosinophils # (Manual) PT INR Fibrinogen dRVVT Confirm Interp Factor V Activity POC ABG pH POC ABG pCO2 POC ABG pO2 Sodium Potassium Chloride Carbon Dioxide BUN Creatinine Glucose POC Glucose 142 H 163 H 123 H Lactic Acid Calcium Phosphorus Magnesium Direct Bilirubin ALT Alkaline Phosphatase Troponin T C-Reactive Protein Total Protein Albumin Triglycerides Cholesterol LDL Cholesterol Direct HDL Cholesterol Urine WBC (Auto) Urine Creatinine Urine Total Protein Vancomycin Trough Rheumatoid Factor Complement C4 Miscellaneous Test Crossmatch 10/23/16 10/23/16 10/23/16 04:58 06:00 12:12 WBC RBC Hgb Hct MCV MCH MCHC RDW Plt Count Lymph % (Auto) [place] % (Auto) Lymph # [place] # Baso # Seg Neutrophils % Seg Neuts % (Manual) Lymphocytes % (Manual) Monocytes % (Manual) Eosinophils % (Manual) Basophils % (Manual) Nucleated RBC % Seg Neutrophils # Seg Neutrophils # Man Lymphocytes # (Manual) Monocytes # (Manual) Eosinophils # (Manual) PT INR Fibrinogen dRVVT Confirm Interp Factor V Activity POC ABG pH POC ABG pCO2 POC ABG pO2 Sodium 133 L Potassium 3.5 L Chloride 96.1 L Carbon Dioxide 18 L BUN 76 H Creatinine 2.1 H Glucose POC Glucose 133 H 138 H Lactic Acid Calcium 8.3 L Phosphorus Magnesium Direct Bilirubin ALT Alkaline Phosphatase Troponin T C-Reactive Protein Total Protein Albumin Triglycerides Cholesterol LDL Cholesterol Direct HDL Cholesterol Urine WBC (Auto) Urine Creatinine Urine Total Protein Vancomycin Trough Rheumatoid Factor Complement C4 Miscellaneous Test Crossmatch 10/23/16 10/23/16 10/24/16 16:53 23:37 04:00 WBC RBC Hgb Hct MCV MCH MCHC RDW Plt Count Lymph % (Auto) [place] % (Auto) Lymph # [place] # Baso # Seg Neutrophils % Seg Neuts % (Manual) Lymphocytes % (Manual) Monocytes % (Manual) Eosinophils % (Manual) Basophils % (Manual) Nucleated RBC % Seg Neutrophils # Seg Neutrophils # Man Lymphocytes # (Manual) Monocytes # (Manual) Eosinophils # (Manual) PT INR Fibrinogen dRVVT Confirm Interp Factor V Activity POC ABG pH POC ABG pCO2 POC ABG pO2 Sodium 131 L Potassium Chloride 94.5 L Carbon Dioxide 19 L BUN 97 H Creatinine 2.6 H Glucose 110 H POC Glucose 125 H 123 H Lactic Acid Calcium 8.3 L Phosphorus Magnesium Direct Bilirubin ALT Alkaline Phosphatase Troponin T C-Reactive Protein Total Protein Albumin Triglycerides Cholesterol LDL Cholesterol Direct HDL Cholesterol Urine WBC (Auto) Urine Creatinine Urine Total Protein Vancomycin Trough Rheumatoid Factor Complement C4 Miscellaneous Test Crossmatch 10/24/16 10/24/16 10/24/16 07:49 11:39 17:52 WBC RBC Hgb 6.0 L Hct 19.7 L* MCV MCH MCHC RDW Plt Count Lymph % (Auto) [place] % (Auto) Lymph # [place] # Baso # Seg Neutrophils % Seg Neuts % (Manual) Lymphocytes % (Manual) Monocytes % (Manual) Eosinophils % (Manual) Basophils % (Manual) Nucleated RBC % Seg Neutrophils # Seg Neutrophils # Man Lymphocytes # (Manual) Monocytes # (Manual) Eosinophils # (Manual) PT INR Fibrinogen dRVVT Confirm Interp Factor V Activity POC ABG pH POC ABG pCO2 POC ABG pO2 Sodium Potassium Chloride Carbon Dioxide BUN Creatinine Glucose POC Glucose 106 H 158 H Lactic Acid Calcium Phosphorus Magnesium Direct Bilirubin ALT Alkaline Phosphatase Troponin T C-Reactive Protein Total Protein Albumin Triglycerides Cholesterol LDL Cholesterol Direct HDL Cholesterol Urine WBC (Auto) Urine Creatinine Urine Total Protein Vancomycin Trough Rheumatoid Factor Complement C4 Miscellaneous Test Crossmatch 10/24/16 10/24/16 10/24/16 20:00 22:27 Unknown WBC RBC Hgb 9.4 L D Hct 27.5 L D MCV MCH MCHC RDW Plt Count Lymph % (Auto) [place] % (Auto) Lymph # [place] # Baso # Seg Neutrophils % Seg Neuts % (Manual) Lymphocytes % (Manual) Monocytes % (Manual) Eosinophils % (Manual) Basophils % (Manual) Nucleated RBC % Seg Neutrophils # Seg Neutrophils # Man Lymphocytes # (Manual) Monocytes # (Manual) Eosinophils # (Manual) PT INR Fibrinogen dRVVT Confirm Interp Factor V Activity POC ABG pH POC ABG pCO2 POC ABG pO2 Sodium Potassium Chloride Carbon Dioxide BUN Creatinine Glucose POC Glucose 125 H Lactic Acid Calcium Phosphorus Magnesium Direct Bilirubin ALT Alkaline Phosphatase Troponin T C-Reactive Protein Total Protein Albumin Triglycerides Cholesterol LDL Cholesterol Direct HDL Cholesterol Urine WBC (Auto) Urine Creatinine Urine Total Protein Vancomycin Trough Rheumatoid Factor Complement C4 Miscellaneous Test Crossmatch See Detail 10/25/16 10/25/16 10/25/16 04:00 04:00 04:00 WBC 14.2 H RBC 2.98 L Hgb 9.0 L Hct 26.2 L MCV MCH MCHC RDW 16.6 H Plt Count Lymph % (Auto) [place] % (Auto) 10.7 H Lymph # [place] # 1.5 H Baso # Seg Neutrophils % 73.6 H Seg Neuts % (Manual) Lymphocytes % (Manual) Monocytes % (Manual) Eosinophils % (Manual) Basophils % (Manual) Nucleated RBC % Seg Neutrophils # 10.5 H Seg Neutrophils # Man Lymphocytes # (Manual) Monocytes # (Manual) Eosinophils # (Manual) PT INR Fibrinogen dRVVT Confirm Interp Factor V Activity POC ABG pH POC ABG pCO2 POC ABG pO2 Sodium 132 L Potassium Chloride 94.7 L Carbon Dioxide BUN 51 H Creatinine 1.6 H Glucose 130 H POC Glucose Lactic Acid Calcium 8.3 L Phosphorus 1.60 L D Magnesium Direct Bilirubin ALT Alkaline Phosphatase Troponin T C-Reactive Protein Total Protein Albumin Triglycerides Cholesterol LDL Cholesterol Direct HDL Cholesterol Urine WBC (Auto) Urine Creatinine Urine Total Protein Vancomycin Trough Rheumatoid Factor Complement C4 Miscellaneous Test Crossmatch 10/25/16 10/25/16 10/25/16 04:32 11:48 17:22 WBC RBC Hgb Hct MCV MCH MCHC RDW Plt Count Lymph % (Auto) [place] % (Auto) Lymph # [place] # Baso # Seg Neutrophils % Seg Neuts % (Manual) Lymphocytes % (Manual) Monocytes % (Manual) Eosinophils % (Manual) Basophils % (Manual) Nucleated RBC % Seg Neutrophils # Seg Neutrophils # Man Lymphocytes # (Manual) Monocytes # (Manual) Eosinophils # (Manual) PT INR Fibrinogen dRVVT Confirm Interp Factor V Activity POC ABG pH POC ABG pCO2 POC ABG pO2 Sodium Potassium Chloride Carbon Dioxide BUN Creatinine Glucose POC Glucose 124 H 171 H 120 H Lactic Acid Calcium Phosphorus Magnesium Direct Bilirubin ALT Alkaline Phosphatase Troponin T C-Reactive Protein Total Protein Albumin Triglycerides Cholesterol LDL Cholesterol Direct HDL Cholesterol Urine WBC (Auto) Urine Creatinine Urine Total Protein Vancomycin Trough Rheumatoid Factor Complement C4 Miscellaneous Test Crossmatch 10/26/16 10/26/16 10/26/16 04:54 07:06 07:06 WBC 16.9 H RBC 3.06 L Hgb 9.1 L Hct 26.9 L MCV MCH MCHC RDW 16.9 H Plt Count Lymph % (Auto) [place] % (Auto) Lymph # [place] # Baso # Seg Neutrophils % Seg Neuts % (Manual) 71.0 H Lymphocytes % (Manual) 5.0 L Monocytes % (Manual) 12.0 H Eosinophils % (Manual) Basophils % (Manual) Nucleated RBC % Seg Neutrophils # Seg Neutrophils # Man 12.0 H Lymphocytes # (Manual) 0.8 L Monocytes # (Manual) 2.0 H Eosinophils # (Manual) PT INR Fibrinogen dRVVT Confirm Interp Factor V Activity POC ABG pH POC ABG pCO2 POC ABG pO2 Sodium 135 L Potassium Chloride 97.1 L Carbon Dioxide BUN 73 H Creatinine 2.2 H Glucose 117 H POC Glucose 123 H Lactic Acid Calcium Phosphorus 1.70 L Magnesium Direct Bilirubin ALT Alkaline Phosphatase Troponin T C-Reactive Protein Total Protein Albumin Triglycerides Cholesterol LDL Cholesterol Direct HDL Cholesterol Urine WBC (Auto) Urine Creatinine Urine Total Protein Vancomycin Trough Rheumatoid Factor Complement C4 Miscellaneous Test Crossmatch 10/26/16 10/26/16 10/26/16 12:12 17:29 23:42 WBC RBC Hgb Hct MCV MCH MCHC RDW Plt Count Lymph % (Auto) [place] % (Auto) Lymph # [place] # Baso # Seg Neutrophils % Seg Neuts % (Manual) Lymphocytes % (Manual) Monocytes % (Manual) Eosinophils % (Manual) Basophils % (Manual) Nucleated RBC % Seg Neutrophils # Seg Neutrophils # Man Lymphocytes # (Manual) Monocytes # (Manual) Eosinophils # (Manual) PT INR Fibrinogen dRVVT Confirm Interp Factor V Activity POC ABG pH POC ABG pCO2 POC ABG pO2 Sodium Potassium Chloride Carbon Dioxide BUN Creatinine Glucose POC Glucose 126 H 161 H 118 H Lactic Acid Calcium Phosphorus Magnesium Direct Bilirubin ALT Alkaline Phosphatase Troponin T C-Reactive Protein Total Protein Albumin Triglycerides Cholesterol LDL Cholesterol Direct HDL Cholesterol Urine WBC (Auto) Urine Creatinine Urine Total Protein Vancomycin Trough Rheumatoid Factor Complement C4 Miscellaneous Test Crossmatch 10/27/16 10/27/16 10/27/16 05:03 06:30 06:30 WBC 13.9 H RBC 3.09 L Hgb 9.2 L Hct 27.5 L MCV MCH MCHC RDW 17.0 H Plt Count Lymph % (Auto) [place] % (Auto) Lymph # [place] # Baso # Seg Neutrophils % Seg Neuts % (Manual) 78.0 H Lymphocytes % (Manual) Monocytes % (Manual) Eosinophils % (Manual) Basophils % (Manual) Nucleated RBC % 2.0 H Seg Neutrophils # Seg Neutrophils # Man 10.8 H Lymphocytes # (Manual) Monocytes # (Manual) 1.0 H Eosinophils # (Manual) PT INR Fibrinogen dRVVT Confirm Interp Factor V Activity POC ABG pH POC ABG pCO2 POC ABG pO2 Sodium Potassium Chloride Carbon Dioxide BUN 40 H Creatinine 1.5 H Glucose 135 H POC Glucose 107 H Lactic Acid Calcium 8.3 L Phosphorus 1.30 L D Magnesium Direct Bilirubin ALT Alkaline Phosphatase Troponin T C-Reactive Protein Total Protein Albumin Triglycerides Cholesterol LDL Cholesterol Direct HDL Cholesterol Urine WBC (Auto) Urine Creatinine Urine Total Protein Vancomycin Trough Rheumatoid Factor Complement C4 Miscellaneous Test Crossmatch 10/27/16 10/27/16 10/27/16 13:27 18:07 23:40 WBC RBC Hgb Hct MCV MCH MCHC RDW Plt Count Lymph % (Auto) [place] % (Auto) Lymph # [place] # Baso # Seg Neutrophils % Seg Neuts % (Manual) Lymphocytes % (Manual) Monocytes % (Manual) Eosinophils % (Manual) Basophils % (Manual) Nucleated RBC % Seg Neutrophils # Seg Neutrophils # Man Lymphocytes # (Manual) Monocytes # (Manual) Eosinophils # (Manual) PT INR Fibrinogen dRVVT Confirm Interp Factor V Activity POC ABG pH POC ABG pCO2 POC ABG pO2 Sodium Potassium Chloride Carbon Dioxide BUN Creatinine Glucose POC Glucose 117 H 121 H 118 H Lactic Acid Calcium Phosphorus Magnesium Direct Bilirubin ALT Alkaline Phosphatase Troponin T C-Reactive Protein Total Protein Albumin Triglycerides Cholesterol LDL Cholesterol Direct HDL Cholesterol Urine WBC (Auto) Urine Creatinine Urine Total Protein Vancomycin Trough Rheumatoid Factor Complement C4 Miscellaneous Test Crossmatch 10/28/16 10/28/16 10/28/16 05:48 06:45 06:45 WBC 14.7 H RBC 3.05 L Hgb 9.0 L Hct 26.9 L MCV MCH MCHC RDW 16.8 H Plt Count Lymph % (Auto) 8.2 L [place] % (Auto) 8.4 H Lymph # [place] # 1.2 H Baso # Seg Neutrophils % 81.9 H Seg Neuts % (Manual) Lymphocytes % (Manual) Monocytes % (Manual) Eosinophils % (Manual) Basophils % (Manual) Nucleated RBC % Seg Neutrophils # 12.1 H Seg Neutrophils # Man Lymphocytes # (Manual) Monocytes # (Manual) Eosinophils # (Manual) PT INR Fibrinogen dRVVT Confirm Interp Factor V Activity POC ABG pH POC ABG pCO2 POC ABG pO2 Sodium Potassium Chloride Carbon Dioxide BUN 60 H Creatinine 1.9 H Glucose 120 H POC Glucose 114 H Lactic Acid Calcium Phosphorus Magnesium Direct Bilirubin ALT Alkaline Phosphatase Troponin T C-Reactive Protein Total Protein Albumin Triglycerides Cholesterol LDL Cholesterol Direct HDL Cholesterol Urine WBC (Auto) Urine Creatinine Urine Total Protein Vancomycin Trough Rheumatoid Factor Complement C4 Miscellaneous Test Crossmatch 10/28/16 10/28/16 10/29/16 17:08 23:50 05:10 WBC RBC Hgb Hct MCV MCH MCHC RDW Plt Count Lymph % (Auto) [place] % (Auto) Lymph # [place] # Baso # Seg Neutrophils % Seg Neuts % (Manual) Lymphocytes % (Manual) Monocytes % (Manual) Eosinophils % (Manual) Basophils % (Manual) Nucleated RBC % Seg Neutrophils # Seg Neutrophils # Man Lymphocytes # (Manual) Monocytes # (Manual) Eosinophils # (Manual) PT INR Fibrinogen dRVVT Confirm Interp Factor V Activity POC ABG pH POC ABG pCO2 POC ABG pO2 Sodium Potassium Chloride Carbon Dioxide BUN Creatinine Glucose POC Glucose 109 H 110 H 124 H Lactic Acid Calcium Phosphorus Magnesium Direct Bilirubin ALT Alkaline Phosphatase Troponin T C-Reactive Protein Total Protein Albumin Triglycerides Cholesterol LDL Cholesterol Direct HDL Cholesterol Urine WBC (Auto) Urine Creatinine Urine Total Protein Vancomycin Trough Rheumatoid Factor Complement C4 Miscellaneous Test Crossmatch 10/29/16 10/29/16 10/29/16 07:45 07:45 12:19 WBC 14.7 H RBC 3.15 L Hgb 9.3 L Hct 28.9 L MCV MCH MCHC RDW 17.0 H Plt Count Lymph % (Auto) 11.9 L [place] % (Auto) 8.6 H Lymph # [place] # 1.3 H Baso # Seg Neutrophils % 78.1 H Seg Neuts % (Manual) Lymphocytes % (Manual) Monocytes % (Manual) Eosinophils % (Manual) Basophils % (Manual) Nucleated RBC % Seg Neutrophils # 11.4 H Seg Neutrophils # Man Lymphocytes # (Manual) Monocytes # (Manual) Eosinophils # (Manual) PT INR Fibrinogen dRVVT Confirm Interp Factor V Activity POC ABG pH POC ABG pCO2 POC ABG pO2 Sodium Potassium 5.1 H Chloride Carbon Dioxide 19 L BUN 78 H Creatinine 2.2 H Glucose 116 H POC Glucose 118 H Lactic Acid Calcium Phosphorus Magnesium Direct Bilirubin ALT Alkaline Phosphatase Troponin T C-Reactive Protein Total Protein Albumin Triglycerides Cholesterol LDL Cholesterol Direct HDL Cholesterol Urine WBC (Auto) Urine Creatinine Urine Total Protein Vancomycin Trough Rheumatoid Factor Complement C4 Miscellaneous Test Crossmatch 10/29/16 10/30/16 10/30/16 17:49 01:52 03:28 WBC RBC Hgb Hct MCV MCH MCHC RDW Plt Count Lymph % (Auto) [place] % (Auto) Lymph # [place] # Baso # Seg Neutrophils % Seg Neuts % (Manual) Lymphocytes % (Manual) Monocytes % (Manual) Eosinophils % (Manual) Basophils % (Manual) Nucleated RBC % Seg Neutrophils # Seg Neutrophils # Man Lymphocytes # (Manual) Monocytes # (Manual) Eosinophils # (Manual) PT INR Fibrinogen dRVVT Confirm Interp Factor V Activity POC ABG pH POC ABG pCO2 POC ABG pO2 Sodium Potassium 5.4 H Chloride 97.5 L Carbon Dioxide 19 L BUN 90 H Creatinine 2.5 H Glucose POC Glucose 120 H 129 H Lactic Acid Calcium Phosphorus 5.20 H Magnesium Direct Bilirubin ALT Alkaline Phosphatase Troponin T C-Reactive Protein Total Protein Albumin Triglycerides Cholesterol LDL Cholesterol Direct HDL Cholesterol Urine WBC (Auto) Urine Creatinine Urine Total Protein Vancomycin Trough Rheumatoid Factor Complement C4 Miscellaneous Test Crossmatch 10/30/16 10/30/16 10/30/16 03:28 08:19 08:19 WBC 11.6 H 15.9 H RBC 2.75 L 2.82 L Hgb 7.9 L 8.3 L Hct 24.2 L 25.2 L MCV MCH MCHC RDW 16.7 H 17.2 H Plt Count Lymph % (Auto) [place] % (Auto) 9.8 H Lymph # [place] # 1.1 H Baso # Seg Neutrophils % 74.2 H Seg Neuts % (Manual) Lymphocytes % (Manual) Monocytes % (Manual) Eosinophils % (Manual) Basophils % (Manual) Nucleated RBC % Seg Neutrophils # 8.6 H Seg Neutrophils # Man Lymphocytes # (Manual) Monocytes # (Manual) Eosinophils # (Manual) PT INR Fibrinogen dRVVT Confirm Interp Factor V Activity POC ABG pH POC ABG pCO2 POC ABG pO2 Sodium Potassium 5.3 H Chloride 97.4 L Carbon Dioxide 19 L BUN 93 H Creatinine 2.6 H Glucose POC Glucose Lactic Acid Calcium Phosphorus Magnesium Direct Bilirubin ALT Alkaline Phosphatase Troponin T C-Reactive Protein Total Protein Albumin Triglycerides Cholesterol LDL Cholesterol Direct HDL Cholesterol Urine WBC (Auto) Urine Creatinine Urine Total Protein Vancomycin Trough Rheumatoid Factor Complement C4 Miscellaneous Test Crossmatch 10/30/16 10/30/16 10/31/16 17:11 23:56 00:40 WBC RBC Hgb Hct MCV MCH MCHC RDW Plt Count Lymph % (Auto) [place] % (Auto) Lymph # [place] # Baso # Seg Neutrophils % Seg Neuts % (Manual) Lymphocytes % (Manual) Monocytes % (Manual) Eosinophils % (Manual) Basophils % (Manual) Nucleated RBC % Seg Neutrophils # Seg Neutrophils # Man Lymphocytes # (Manual) Monocytes # (Manual) Eosinophils # (Manual) PT INR Fibrinogen dRVVT Confirm Interp Factor V Activity POC ABG pH POC ABG pCO2 POC ABG pO2 Sodium Potassium Chloride Carbon Dioxide BUN Creatinine Glucose POC Glucose 106 H 117 H 120 H Lactic Acid Calcium Phosphorus Magnesium Direct Bilirubin ALT Alkaline Phosphatase Troponin T C-Reactive Protein Total Protein Albumin Triglycerides Cholesterol LDL Cholesterol Direct HDL Cholesterol Urine WBC (Auto) Urine Creatinine Urine Total Protein Vancomycin Trough Rheumatoid Factor Complement C4 Miscellaneous Test Crossmatch 10/31/16 10/31/16 10/31/16 05:43 07:15 07:15 WBC 12.1 H RBC 2.63 L Hgb 7.7 L Hct 23.3 L MCV MCH MCHC RDW 16.7 H Plt Count Lymph % (Auto) 11.7 L [place] % (Auto) 7.7 H Lymph # [place] # 0.9 H Baso # Seg Neutrophils % 78.0 H Seg Neuts % (Manual) Lymphocytes % (Manual) Monocytes % (Manual) Eosinophils % (Manual) Basophils % (Manual) Nucleated RBC % Seg Neutrophils # 9.4 H Seg Neutrophils # Man Lymphocytes # (Manual) Monocytes # (Manual) Eosinophils # (Manual) PT INR Fibrinogen dRVVT Confirm Interp Factor V Activity POC ABG pH POC ABG pCO2 POC ABG pO2 Sodium Potassium Chloride 96.4 L Carbon Dioxide 21 L BUN 99 H Creatinine 2.6 H Glucose 144 H POC Glucose 125 H Lactic Acid Calcium Phosphorus 4.80 H Magnesium Direct Bilirubin ALT Alkaline Phosphatase Troponin T C-Reactive Protein Total Protein Albumin Triglycerides Cholesterol LDL Cholesterol Direct HDL Cholesterol Urine WBC (Auto) Urine Creatinine Urine Total Protein Vancomycin Trough Rheumatoid Factor Complement C4 Miscellaneous Test Crossmatch Chest x-ray: pending, report reviewed Allied health notes reviewed: RT
[2016-10-31] MEDS ORDERED: LOPRESSOR PO SCH (11:00)
[2016-10-31] MEDS: REGLAN IV SCH (11:37)
[2016-10-31] MEDS: NORVASC PO SCH (11:37)
[2016-10-31] MEDS: MAXIPIME/NS 2 GM/100 ML 2 GM/100 ML BAG IV SCH (11:38)
[2016-10-31] MEDS: PROTONIX FEEDTUBE SCH (11:38)
--- NOTE | 2016-10-31 11:42 | Progress Note ---
Assessment and Plan Assessment: 1) Recurrent Sepsis: resolved fever; likely abdominal wall abscess at surgical site versus drug fever -S/p multiple episodes of sepsis - initially due to presumed aspiration pneumonia, then septic episode on 09/23 from Candidemia. Then from - peritonitis from gastric perforation +/- UTI. Current septic episode from surgical site infection. -CRP 19 --> 22 -Procalcitonin=24 --> 16 --> 4.3 -repeat CT abdomen 10/25 no leak no abscess. +small brit pleural effusion, increased air bronchograms R>L, track to old PEG. Persistent wall thickening sigmoid colon. -repeat blood cx - neg -Wound cx from surgical site infection + MDR Pseudomonas and Silvia albicans 2) Peritonitis: from gastric perforation from dislodged PEG with significant ascites -S/P exlap, repair of gastric perforation with wedge gastrectomy, abdominal washout, drain placement on 10/05. 3) Candidemia: -Blood cultures positive for Silvia albicans on 09/23 -Blood cultures positive on 09/25 -Blood cultures negative on 09/30 -PICC line changed on 10/03 -Source ? gastric perf (PEG placed on 09/20) +/- TPN +/- central lines -TTE 10/07 no vegetations -PICC exchanged on 10/03 -fully treated with micafungin for 14 days last day 10/13 4) CA-UTI s/p gutierrez exchanged 5) Diarrhea - ? etiology ? antibiotic-induced, not better 6) Initial presumed aspiration pneumonia 7) Presumed UTI: urine cx 09/23 multiple species 8) Respiratory failure s/p trach 9) Recent CVA-left MCA CVA 10) Uncontrolled HTN 11) Acute on CKD 12) Extensive back skin peeling ? burn from gastric secretions. Doubt allergic reaction 13) Severe anemia; ? from GI bleed Plan: -continue cefepime and fluconazole day 12 of 14 -please remove all unnecessary IV lines I am signing off Thank you Dr Lopez for your consultation, will follow up with you. Pauline Carias MD Infectious Diseases Specialist [facility] ([facility] M [phone] O [phone] Subjective Date of service: 10/31/16 Principal diagnosis: Acute resp failure on MVS; S/P Acute CVA; Acute Encephalopathy; JUANITA Interval history: Fever resolved, alert this am open eyes spontaneously, tachycardic on the monitor, still on the vent via trach. Microbiology: Blood cultures: 09/13 neg 8 Silvia albicans 09/25 Silvia 09/29 neg 10/07 NGTD Urine cultures: 09/10 neg 09/13 neg 8/ 10-100K mixed species 10/07 pending Respiratory cultures: 09/07 neg 09/13 neg 8 neg Wound cultures: 10/17 abd wall wound purulence + Pseudomonas MDR Stool cultures: Current Antimicrobials: fluconazole 10/19 cefepime 10/29 Previous Antimicrobials: Zosyn 10/07 Vancomycin PO 10/01 Metronidazole 09/25 Micafungin 09/27-10/13 Meropenem 10/10 Vanco 10/17 zosyn 10/21 Objective - Exam Narrative Exam: General appearance: alert, non verbal, on the vent via trach no following commands Eyes: anicteric sclera, moist conjunctivae; PERRLA HENT: Atraumatic; oropharynx limited; Normal external ears. +NGT with greenish secretion Neck: +trach in place; supple, no thyromegaly or lymphadenopathy Lungs: brit loud rhonchi CV: tachycardic Abdomen: Soft, non-tender, +drain with purulent drainage, + diarrhea via rectal tube leaking. +old PEG site no drainage. Right sided Surgical site packed No drainage today Extremities: +peripheral edema no extremity lymphadenopathy Skin: sacral area wounds superficial no purulence Psych: somnolent . Neuro: somnolent non verbal on the vent. Lines: left arm PICC placed on 10/03 - Constitutional Vitals: Vital Signs Temp Pulse Resp BP Pulse Ox 97.6 F 128 H 25 H 145/97 98 10/31/16 07:35 10/31/16 09:45 10/31/16 09:00 10/31/16 09:45 10/31/16 09:00 Temperature -Last 24 Hours Temperature 97.6 F Temperature 97.0 F Temperature 98 F Temperature 98.7 F Temperature 98.6 F Temperature 98.6 F Temperature 99.5 F - Labs CBC & Chem 7: 10/31/16 07:15 10/31/16 07:15 Labs: Abnormal lab results 10/30/16 10/30/16 10/31/16 Range/Units 17:11 23:56 00:40 WBC (4.5-11.0) K/mm3 RBC (3.65-5.03) M/mm3 Hgb (10.1-14.3) gm/dl Hct (30.3-42.9) % RDW (13.2-15.2) % Lymph % (Auto) (13.4-35.0) % [place] % (Auto) (0.0-7.3) % [place] # (0.0-0.8) K/mm3 Seg Neutrophils % (40.0-70.0) % Seg Neutrophils # (1.8-7.7) K/mm3 Chloride (98-107) mmol/L Carbon Dioxide (22-30) mmol/L BUN (7-17) mg/dL Creatinine (0.7-1.2) mg/dL Glucose (65-100) mg/dL POC Glucose 106 H 117 H 120 H (70-105) Phosphorus (2.5-4.5) mg/dL 10/31/16 10/31/16 10/31/16 Range/Units 05:43 07:15 07:15 WBC 12.1 H (4.5-11.0) K/mm3 RBC 2.63 L (3.65-5.03) M/mm3 Hgb 7.7 L (10.1-14.3) gm/dl Hct 23.3 L (30.3-42.9) % RDW 16.7 H (13.2-15.2) % Lymph % (Auto) 11.7 L (13.4-35.0) % [place] % (Auto) 7.7 H (0.0-7.3) % [place] # 0.9 H (0.0-0.8) K/mm3 Seg Neutrophils % 78.0 H (40.0-70.0) % Seg Neutrophils # 9.4 H (1.8-7.7) K/mm3 Chloride 96.4 L (98-107) mmol/L Carbon Dioxide 21 L (22-30) mmol/L BUN 99 H (7-17) mg/dL Creatinine 2.6 H (0.7-1.2) mg/dL Glucose 144 H (65-100) mg/dL POC Glucose 125 H (70-105) Phosphorus 4.80 H (2.5-4.5) mg/dL
--- NOTE | 2016-10-31 12:23 | Progress Note ---
Assessment and Plan - Patient Problems (1) Dislodged gastrostomy tube Current Visit: Yes Status: Acute Plan to address problem: continue dressing changes. continue supportive care. await tr to ltac Subjective Date of service: 10/31/16 Patient Reports: Positive: no new complaints, afebrile, other (no acute events) Objective Vital Signs - 12hr 10/31/16 10/31/16 10/31/16 00:30 01:01 01:10 Temperature Pulse Rate 112 H 114 H 113 H Respiratory 26 H 24 Rate Blood Pressure 212/106 216/105 216/105 O2 Sat by Pulse 100 100 Oximetry O2 Sat by Pulse Oximetry [ Assessment] O2 Sat by Pulse Oximetry [ Bilateral Throughout] 10/31/16 10/31/16 10/31/16 01:30 02:01 02:30 Temperature Pulse Rate 116 H 108 H 107 H Respiratory 25 H 23 22 Rate Blood Pressure 216/105 192/96 195/95 O2 Sat by Pulse 100 100 100 Oximetry O2 Sat by Pulse Oximetry [ Assessment] O2 Sat by Pulse Oximetry [ Bilateral Throughout] 10/31/16 10/31/16 10/31/16 03:01 03:09 03:30 Temperature Pulse Rate 108 H 111 H 110 H Respiratory 24 24 Rate Blood Pressure 193/97 193/97 204/105 O2 Sat by Pulse 100 100 100 Oximetry O2 Sat by Pulse Oximetry [ Assessment] O2 Sat by Pulse Oximetry [ Bilateral Throughout] 10/31/16 10/31/16 10/31/16 04:00 04:31 05:00 Temperature 98 F Pulse Rate 112 H 110 H 115 H Respiratory 27 H 26 H 25 H Rate Blood Pressure 207/104 200/98 211/106 O2 Sat by Pulse 100 100 100 Oximetry O2 Sat by Pulse Oximetry [ Assessment] O2 Sat by Pulse Oximetry [ Bilateral Throughout] 10/31/16 10/31/16 10/31/16 05:30 06:01 06:12 Temperature Pulse Rate 117 H 109 H 116 H Respiratory 32 H 23 Rate Blood Pressure 211/107 210/109 213/106 O2 Sat by Pulse 97 100 Oximetry O2 Sat by Pulse Oximetry [ Assessment] O2 Sat by Pulse Oximetry [ Bilateral Throughout] 10/31/16 10/31/16 10/31/16 06:30 06:31 06:45 Temperature 97.0 F L Pulse Rate 114 H 115 H 114 H Respiratory 34 H 28 H Rate Blood Pressure 193/92 193/92 211/114 O2 Sat by Pulse 100 Oximetry O2 Sat by Pulse Oximetry [ Assessment] O2 Sat by Pulse 100 Oximetry [ Bilateral Throughout] 10/31/16 10/31/16 10/31/16 07:00 07:01 07:15 Temperature Pulse Rate 107 H 117 H 109 H Respiratory 33 H Rate Blood Pressure 193/119 211/114 196/122 O2 Sat by Pulse Oximetry O2 Sat by Pulse Oximetry [ Assessment] O2 Sat by Pulse Oximetry [ Bilateral Throughout] 10/31/16 10/31/16 10/31/16 07:30 07:35 07:45 Temperature 97.6 F Pulse Rate 112 H 118 H Respiratory 24 Rate Blood Pressure 164/100 158/95 O2 Sat by Pulse Oximetry O2 Sat by Pulse Oximetry [ Assessment] O2 Sat by Pulse Oximetry [ Bilateral Throughout] 10/31/16 10/31/16 10/31/16 08:00 08:15 08:21 Temperature Pulse Rate 120 H 118 H 123 H Respiratory 23 Rate Blood Pressure 145/94 145/94 132/90 O2 Sat by Pulse 91 Oximetry O2 Sat by Pulse Oximetry [ Assessment] O2 Sat by Pulse Oximetry [ Bilateral Throughout] 10/31/16 10/31/16 10/31/16 08:30 08:34 08:45 Temperature Pulse Rate 127 H 123 H Respiratory 18 Rate Blood Pressure 133/92 132/93 O2 Sat by Pulse 99 Oximetry O2 Sat by Pulse 98 Oximetry [ Assessment] O2 Sat by Pulse Oximetry [ Bilateral Throughout] 10/31/16 10/31/16 10/31/16 09:00 09:15 09:30 Temperature Pulse Rate 127 H 125 H 125 H Respiratory 25 H Rate Blood Pressure 132/80 137/85 149/93 O2 Sat by Pulse 98 Oximetry O2 Sat by Pulse Oximetry [ Assessment] O2 Sat by Pulse Oximetry [ Bilateral Throughout] 10/31/16 10/31/16 10/31/16 09:45 11:37 11:43 Temperature Pulse Rate 128 H 128 H 126 H Respiratory Rate Blood Pressure 145/97 167/113 167/113 O2 Sat by Pulse 100 Oximetry O2 Sat by Pulse Oximetry [ Assessment] O2 Sat by Pulse Oximetry [ Bilateral Throughout] 10/31/16 12:20 Temperature 98.9 F Pulse Rate Respiratory Rate Blood Pressure O2 Sat by Pulse Oximetry O2 Sat by Pulse Oximetry [ Assessment] O2 Sat by Pulse Oximetry [ Bilateral Throughout] - General physical appearance no distress - Respiratory normal respiratory effort - Abdomen soft, tender, wound (still copious drainage) - Labs 10/31/16 07:15 10/31/16 07:15 Diabetes panel 10/31/16 Range/Units 07:15 Sodium 137 (137-145) mmol/L Potassium 4.7 (3.6-5.0) mmol/L Chloride 96.4 L (98-107) mmol/L Carbon Dioxide 21 L (22-30) mmol/L BUN 99 H (7-17) mg/dL Creatinine 2.6 H (0.7-1.2) mg/dL Glucose 144 H (65-100) mg/dL Calcium 8.4 (8.4-10.2) mg/dL Calcium panel 10/31/16 Range/Units 07:15 Calcium 8.4 (8.4-10.2) mg/dL Phosphorus 4.80 H (2.5-4.5) mg/dL Pituitary panel 10/31/16 Range/Units 07:15 Sodium 137 (137-145) mmol/L Potassium 4.7 (3.6-5.0) mmol/L Chloride 96.4 L (98-107) mmol/L Carbon Dioxide 21 L (22-30) mmol/L BUN 99 H (7-17) mg/dL Creatinine 2.6 H (0.7-1.2) mg/dL Glucose 144 H (65-100) mg/dL Calcium 8.4 (8.4-10.2) mg/dL Adrenal panel 10/31/16 Range/Units 07:15 Sodium 137 (137-145) mmol/L Potassium 4.7 (3.6-5.0) mmol/L Chloride 96.4 L (98-107) mmol/L Carbon Dioxide 21 L (22-30) mmol/L BUN 99 H (7-17) mg/dL Creatinine 2.6 H (0.7-1.2) mg/dL Glucose 144 H (65-100) mg/dL Calcium 8.4 (8.4-10.2) mg/dL
[2016-10-31] MEDS: LOPRESSOR PO SCH ×2 (13:37→21:44)
--- NOTE | 2016-10-31 16:01 | Progress Note ---
Assessment and Plan Assessment and plan: Probability of clinically significant life-threatening deterioration of the cardiovascular or respiratory symptoms requiring my direct and full attention. Also reviewing data. Physician consultation and orders. - Patient Problems (1) JUANITA (acute kidney injury) Current Visit: Yes Status: Acute Plan to address problem: Acute kidney injury appears to be somewhat more chronic today. May require additional hemodialysis in the a.m. Pt to recieve HD today (2) Acute CVA (cerebrovascular accident) Current Visit: Yes Status: Acute Plan to address problem: Acute CVA left middle cerebral artery prognosis remains extremely poor. Continue to treat with antiplatelet therapy aggressive blood pressure control and lipid therapy. No new changes in mgt. With discahrge planning [facility] will not take pt unless has peg but patient cannot have peg due to previous surgery. Plan is to see if [facility] will take patient and return to hospital of get PEG (3) Acute blood loss anemia Current Visit: Yes Status: Resolved (4) Acute respiratory failure with hypoxia Current Visit: Yes Status: Acute Plan to address problem: Patient remains intubated continue to treat bronchodilators and steroids unable to wean today. Spoke to pulmonology will be very difficult to wean with volume overload at this time. Continue renal failure. (5) Aspiration pneumonia Current Visit: Yes Status: Acute Qualifiers: Aspiration pneumonia type: A Laterality: L Lung location: L Plan to address problem: Continue antibiotic coverage as per infectious disease continue pressor support (6) Fungemia Current Visit: Yes Status: Acute Plan to address problem: diflucan d/c (7) Hypertensive emergency Current Visit: Yes Status: Acute Plan to address problem: Resolved (8) Type 2 diabetes mellitus Current Visit: Yes Status: Chronic Qualifiers: Diabetes mellitus complication status: D Diabetes mellitus complication detail: D Diabetic retinopathy severity: D Proliferative retinopathy type: P Diabetes mellitus macular edema: D Diabetes mellitus snf insulin use : D Laterality: L Chronic kidney disease stage: C Plan to address problem: Blood sugars have remained up good control continue present slides scale insulin History Interval history: talk to surgery about peg placement and reason will not replace peg until 3 weeks. Pt at presnt remains intubated Off pressors Hospitalist Physical - Constitutional Vitals: Temp Pulse Resp BP Pulse Ox 98.9 F 122 H 22 146/79 100 10/31/16 12:20 10/31/16 15:30 10/31/16 15:30 10/31/16 15:30 10/31/16 15:29 General appearance: Present: no acute distress, obese, other (on vent, non- responsive) - EENT Eyes: Present: PERRL, EOM intact. Absent: scleral icterus, conjunctival injection, miosis, mydriasis ENT: no oropharyngeal erythema - Neck Neck: Present: supple, normal ROM - Respiratory Respiratory effort: normal Respiratory: bilateral: rales (base) - Cardiovascular Rhythm: regular Heart Sounds: Present: S1 & S2. Absent: systolic murmur - Extremities Extremities: no ischemia, pulses intact, pulses symmetrical, No edema, normal temperature, normal color Peripheral Pulses: within normal limits - Abdominal General gastrointestinal: soft, other (some draing at the end of incison serosanguineous) - Integumentary Integumentary: Present: clear, warm, dry Results - Labs CBC & Chem 7: 10/31/16 07:15 10/31/16 07:15 Labs: Laboratory Last Values WBC 12.1 K/mm3 (4.5-11.0) H 10/31/16 07:15 RBC 2.63 M/mm3 (3.65-5.03) L 10/31/16 07:15 Hgb 7.7 gm/dl (10.1-14.3) L 10/31/16 07:15 Hct 23.3 % (30.3-42.9) L 10/31/16 07:15 MCV 89 fl (79-97) 10/31/16 07:15 MCH 29 pg (28-32) 10/31/16 07:15 MCHC 33 % (30-34) 10/31/16 07:15 RDW 16.7 % (13.2-15.2) H 10/31/16 07:15 Plt Count 212 K/mm3 (140-440) 10/31/16 07:15 Lymph % (Auto) 11.7 % (13.4-35.0) L 10/31/16 07:15 [place] % (Auto) 7.7 % (0.0-7.3) H 10/31/16 07:15 Eos % (Auto) 2.0 % (0.0-4.3) 10/31/16 07:15 Baso % (Auto) 0.6 % (0.0-1.8) 10/31/16 07:15 Lymph # 1.4 K/mm3 (1.2-5.4) 10/31/16 07:15 [place] # 0.9 K/mm3 (0.0-0.8) H 10/31/16 07:15 Eos # 0.2 K/mm3 (0.0-0.4) 10/31/16 07:15 Baso # 0.1 K/mm3 (0.0-0.1) 10/31/16 07:15 Add Manual Diff Complete 10/27/16 06:30 Total Counted 100 10/27/16 06:30 Seg Neutrophils % 78.0 % (40.0-70.0) H 10/31/16 07:15 Seg Neuts % (Manual) 78.0 % (40.0-70.0) H 10/27/16 06:30 Band Neutrophils % 0 % 10/27/16 06:30 Lymphocytes % (Manual) 14.0 % (13.4-35.0) 10/27/16 06:30 Reactive Lymphs % (Man) 0 % 10/27/16 06:30 Monocytes % (Manual) 7.0 % (0.0-7.3) 10/27/16 06:30 Eosinophils % (Manual) 0 % (0.0-4.3) 10/27/16 06:30 Basophils % (Manual) 1.0 % (0.0-1.8) 10/27/16 06:30 Metamyelocytes % 0 % 10/27/16 06:30 Myelocytes % 0 % 10/27/16 06:30 Promyelocytes % 0 % 10/27/16 06:30 Blast Cells % 0 % 10/27/16 06:30 Nucleated RBC % 2.0 % (0.0-0.9) H 10/27/16 06:30 Seg Neutrophils # 9.4 K/mm3 (1.8-7.7) H 10/31/16 07:15 Seg Neutrophils # Man 10.8 K/mm3 (1.8-7.7) H 10/27/16 06:30 Band Neutrophils # 0.0 K/mm3 10/27/16 06:30 Lymphocytes # (Manual) 1.9 K/mm3 (1.2-5.4) 10/27/16 06:30 Abs React Lymphs (Man) 0.0 K/mm3 10/27/16 06:30 Monocytes # (Manual) 1.0 K/mm3 (0.0-0.8) H 10/27/16 06:30 Eosinophils # (Manual) 0.0 K/mm3 (0.0-0.4) 10/27/16 06:30 Basophils # (Manual) 0.1 K/mm3 (0.0-0.1) 10/27/16 06:30 Metamyelocytes # 0.0 K/mm3 10/27/16 06:30 Myelocytes # 0.0 K/mm3 10/27/16 06:30 Promyelocytes # 0.0 K/mm3 10/27/16 06:30 Blast Cells # 0.0 K/mm3 10/27/16 06:30 Pathologist Review 09/13/16 04:00 WBC Morphology Not Reportable 10/27/16 06:30 Hypersegmented Neuts Not Reportable 10/27/16 06:30 Hyposegmented Neuts Not Reportable 10/27/16 06:30 Hypogranular Neuts Not Reportable 10/27/16 06:30 Smudge Cells Not Reportable 10/27/16 06:30 Toxic Granulation Not Reportable 10/27/16 06:30 Toxic Vacuolation Not Reportable 10/27/16 06:30 Dohle Bodies Not Reportable 10/27/16 06:30 Pelger-Huet Anomaly Not Reportable 10/27/16 06:30 Jasmina Rods Not Reportable 10/27/16 06:30 Platelet Estimate Cons 10/27/16 06:30 Clumped Platelets Not Reportable 10/27/16 06:30 Plt Clumps, EDTA Not Reportable 10/27/16 06:30 Large Platelets Few 10/27/16 06:30 Giant Platelets Not Reportable 10/27/16 06:30 Platelet Satelliting Not Reportable 10/27/16 06:30 Plt Morphology Comment Not Reportable 10/27/16 06:30 RBC Morphology Not Reportable 10/27/16 06:30 Dimorphic RBCs Not Reportable 10/27/16 06:30 Polychromasia Not Reportable 10/27/16 06:30 Hypochromasia Not Reportable 10/27/16 06:30 Poikilocytosis Not Reportable 10/27/16 06:30 Anisocytosis 1+ 10/27/16 06:30 Microcytosis Not Reportable 10/27/16 06:30 Macrocytosis Not Reportable 10/27/16 06:30 Spherocytes Not Reportable 10/27/16 06:30 Pappenheimer Bodies Not Reportable 10/27/16 06:30 Sickle Cells Not Reportable 10/27/16 06:30 Target Cells Not Reportable 10/27/16 06:30 Tear Drop Cells Not Reportable 10/27/16 06:30 Ovalocytes Not Reportable 10/27/16 06:30 Stomatocytes Few 10/06/16 03:50 Helmet Cells Not Reportable 10/27/16 06:30 Monet-Iago Bodies Not Reportable 10/27/16 06:30 [place] Rings Not Reportable 10/27/16 06:30 [place] Cells Not Reportable 10/27/16 06:30 Bite Cells Not Reportable 10/27/16 06:30 Crenated Cell Not Reportable 10/27/16 06:30 Elliptocytes Not Reportable 10/27/16 06:30 Acanthocytes (Spur) Not Reportable 10/27/16 06:30 Rouleaux Not Reportable 10/27/16 06:30 Hemoglobin C Crystals Not Reportable 10/27/16 06:30 Schistocytes Not Reportable 10/27/16 06:30 Malaria parasites Not Reportable 10/27/16 06:30 ESR > 140.0 mm/Hr (0-20) 09/08/16 11:48 Jun Bodies Not Reportable 10/27/16 06:30 Hem Pathologist Commnt No 10/27/16 06:30 PT 19.0 Sec. (12.2-14.9) H 10/09/16 03:45 INR 1.51 (0.87-1.13) H 10/09/16 03:45 APTT 33.0 Sec. (24.2-36.6) 10/09/16 03:45 Thrombin Time 16.8 Sec. (15.1-19.6) 09/03/16 00:10 Fibrinogen 750 mg/dl (211-480) H 09/08/16 11:48 Lupus Anticoagulant see below 09/12/16 09:59 LA PTT Baseline See scanned report 09/12/16 09:59 dRVVT Confirm Interp Positive (Negative) H 09/12/16 09:59 dRVVT Screen 50:50 See scanned report 09/12/16 09:59 dRVVT Mix Interpret See scanned report 09/12/16 09:59 Protein C Antigen 122 % (70-140) 09/08/16 15:35 Free Protein S 97 % normal (50-147) 09/08/16 15:35 Total Protein S 109 % (70-140) 09/08/16 15:35 Antithrombin III Ag 100 % (80-120) 09/08/16 15:35 Heparin Anti-Xa, Unfract Negative (Negative) 09/29/16 13:35 Factor V Activity 182 % (65-150) H 09/08/16 15:35 POC ABG pH 7.561 (7.35-7.45) H 10/16/16 20:48 POC ABG pCO2 24.4 (35-45) L 10/16/16 20:48 POC ABG pO2 77 (80-105) L 10/16/16 20:48 POC ABG HCO3 21.9 10/16/16 20:48 POC ABG Total CO2 23 10/16/16 20:48 POC ABG O2 Sat 97 10/16/16 20:48 POC ABG Base Excess 0 10/16/16 20:48 FiO2 25 % 10/16/16 20:48 Sodium 137 mmol/L (137-145) 10/31/16 07:15 Potassium 4.7 mmol/L (3.6-5.0) 10/31/16 07:15 Chloride 96.4 mmol/L (98-107) L 10/31/16 07:15 Carbon Dioxide 21 mmol/L (22-30) L 10/31/16 07:15 Anion Gap 24 mmol/L 10/31/16 07:15 BUN 99 mg/dL (7-17) H 10/31/16 07:15 Creatinine 2.6 mg/dL (0.7-1.2) H 10/31/16 07:15 Estimated GFR 24 ml/min 10/31/16 07:15 BUN/Creatinine Ratio 38.07 % 10/31/16 07:15 Glucose 144 mg/dL (65-100) H 10/31/16 07:15 POC Glucose 159 (70-105) H 10/31/16 11:46 Osmolality 351 Mosm/kg 09/16/16 11:47 Lactic Acid 4.50 mmol/L (0.7-2.0) H* 09/28/16 07:25 Calcium 8.4 mg/dL (8.4-10.2) 10/31/16 07:15 Phosphorus 4.80 mg/dL (2.5-4.5) H 10/31/16 07:15 Magnesium 1.90 mg/dL (1.7-2.3) 10/31/16 07:15 Total Bilirubin 0.30 mg/dL (0.1-1.2) 10/17/16 04:24 Direct Bilirubin 0.3 mg/dL (0-0.2) H 10/10/16 05:00 Indirect Bilirubin 0.1 mg/dL 10/10/16 05:00 AST 39 units/L (5-40) 10/17/16 04:24 ALT 13 units/L (7-56) 10/17/16 04:24 Alkaline Phosphatase 138 units/L (35-129) H 10/17/16 04:24 Ammonia 27.0 umol/L (25-60) 09/07/16 08:37 Total Creatine Kinase 121 units/L (30-135) 09/29/16 20:12 CK-MB (CK-2) < 1.0 ng/mL (0.0-4.0) 09/29/16 20:12 CK-MB (CK-2) Rel Index 0.8 (0-4) 09/29/16 20:12 Troponin T 0.204 ng/mL (0.00-0.029) H* 09/29/16 20:12 C-Reactive Protein 15.80 mg/dL (0.00-1.30) H 10/11/16 04:15 Total Protein 6.2 g/dL (6.3-8.2) L 10/17/16 04:24 Albumin 1.5 g/dL (3.9-5) L 10/17/16 04:24 Albumin/Globulin Ratio 0.3 % 10/17/16 04:24 Triglycerides 137 mg/dL (2-149) 09/29/16 20:12 Cholesterol 31 mg/dL (50-199) L 09/29/16 20:12 LDL Cholesterol Direct 4 mg/dL (50-130) L 09/29/16 20:12 HDL Cholesterol 3 mg/dL (40-59) L 09/29/16 20:12 Cholesterol/HDL Ratio 10.33 % 09/29/16 20:12 Angiotensin Convert Enz See scanned report 09/08/16 11:48 Renin 0.99 ng/mL/h (0.25-5.82) 10/07/16 10:56 Aldosterone <1 ng/dL () 10/07/16 10:56 Aldosterone/Renin Dir see below 10/07/16 10:56 Serotonin Release Assay See scanned report 09/29/16 13:35 TSH 1.010 mlU/mL (0.270-4.200) 09/07/16 08:37 HCG, Qual Negative (Negative) 09/03/16 00:10 Urine Color [place] (Yellow) 10/07/16 18:30 Urine Turbidity Turbid (Clear) 10/07/16 18:30 Urine pH 7.0 (5.0-7.0) 10/07/16 18:30 Ur Specific [place] 1.012 (1.003-1.030) 10/07/16 18:30 Urine Protein 100 mg/dl mg/dL (Negative) 10/07/16 18:30 Urine Glucose (UA) Neg mg/dL (Negative) 10/07/16 18:30 Urine Ketones Neg mg/dL (Negative) 10/07/16 18:30 Urine Blood Lg (Negative) 10/07/16 18:30 Urine Nitrite Neg (Negative) 10/07/16 18:30 Urine Bilirubin Neg (Negative) 10/07/16 18:30 Urine Urobilinogen < 2.0 mg/dL (<2.0) 10/07/16 18:30 Ur Leukocyte Esterase Lg (Negative) 10/07/16 18:30 Urine WBC (Auto) > 182.0 /HPF (0.0-6.0) H 10/07/16 18:30 Urine RBC (Auto) > 182.0 /HPF (0.0-6.0) 10/07/16 18:30 U Epithel Cells (Auto) 1.0 /HPF (0-13.0) 10/07/16 18:30 Urine Bacteria (Auto) 3+ /HPF (Negative) 10/07/16 18:30 Urine WBC Clumps 2+ /HPF 09/07/16 02:47 Hyaline Casts 4 /LPF 09/07/16 02:47 Urine Mucus Few /HPF 10/07/16 18:30 Urine Yeast (Budding) 3+ /HPF 10/07/16 18:30 Urine Eosinophils None seen (None Seen) 09/07/16 16:00 Urine Total Volume TNR 10/29/16 07:45 Urine Creatinine TNR 10/29/16 07:45 Height (in) TNR 10/29/16 07:45 Weight (lb) TNR 10/29/16 07:45 Creatinine Clearance TNR 10/29/16 07:45 Urine Sodium 36 mEq/L 09/16/16 19:19 Urine Total Protein 16 mg/dL (5-11.8) H 09/16/16 19:19 Vancomycin Trough 2.3 ug/mL (5.0-20.0) L 09/21/16 13:00 Random Vancomycin 17.0 ug/mL (0-40.0) 10/20/16 06:00 Urine Opiates Screen Presumptive negative 09/03/16 15:11 Urine Methadone Screen Presumptive positive 09/03/16 15:11 Ur Barbiturates Screen Presumptive positive 09/03/16 15:11 Ur Phencyclidine Scrn Presumptive negative 09/03/16 15:11 Ur Amphetamines Screen Presumptive negative 09/03/16 15:11 U Benzodiazepines Scrn Presumptive negative 09/03/16 15:11 Urine Cocaine Screen Presumptive negative 09/03/16 15:11 U Marijuana (THC) Screen Presumptive positive 09/03/16 15:11 Drugs of Abuse Note Disclamer 09/03/16 15:11 Rheumatoid Factor 24 IU/ml (0-13) H 09/08/16 11:48 SAHIL Screen Negative (Negative) 09/07/16 09:20 Proteinase 3 (PR3) Ab <1.0 AI (<1.0) 09/07/16 09:20 Myeloperoxidase Ab <1.0 AI (<1.0) 09/07/16 09:20 Sjogren's Antibody <1.0 AI (<1.0) 09/08/16 15:35 Scl-70 Scleroderma Ab <1.0 AI (<1.0) 09/08/16 15:35 Centromere B Antibody <1.0 AI (<1.0) 09/08/16 12:02 Heparin-induced Plt Ab Negative (Negative) 09/29/16 13:35 UF Heparin High Dose 11 % Release 09/29/16 13:35 SUDHIR UFH Low Dose 0.1 6 % Release 09/29/16 13:35 SUDHIR UFH Low Dose 0.5 8 % Release 09/29/16 13:35 Cardiolipid IgG Ab <14 GPL (<=14) 09/12/16 09:59 Cardiolipid IgA Ab <11 APL (<=11) 09/12/16 09:59 Cardiolipid IgM Ab <12 MPL (<=12) 09/12/16 09:59 Complement C3 148 mg/dL (90-180) 09/07/16 09:20 Complement C4 58 mg/dL (16-47) H 09/07/16 09:20 RPR Nonreactive (Nonreactive) 09/08/16 11:48 Hepatitis A IgM Ab Non-reactive (NonReactive) 09/24/16 14:40 Hep Bs Antigen Non-reactive (Negative) 09/24/16 14:40 Hep B Core IgM Ab Non-reactive (NonReactive) 09/24/16 14:40 Hepatitis C Antibody Non-reactive (NonReactive) 09/24/16 14:40 HIV 1&2 Antibody Rapid Non react (Non React) 09/08/16 11:48 HIV P24 Antigen Non react (Non React) 09/08/16 11:48 Miscellaneous Test Flexitest 1 H 10/20/16 16:00 Blood Type A POSITIVE 10/24/16 Unknown Antibody Screen Negative 10/24/16 Unknown DELORIS Antibody Screen Negative 09/25/16 10:30 Crossmatch See Detail 10/24/16 Unknown
[2016-10-31] MEDS ORDERED: TPN ADULT 2,016 ML IV SCH (20:00)
[2016-11-01] MEDS: HumuLIN R SUB-Q SCH ×3 (00:53→18:22)
[2016-11-01] MEDS: REGLAN IV SCH ×4 (00:56→17:23)
[2016-11-01] MEDS: APRESOLINE IV PRN ×2 (04:48→17:22)
[2016-11-01 06:14] LABS: Basophils # (Auto) 0.1 K/mm3 (0.0-0.1); Eosinophils # (Auto) 0.2 K/mm3 (0.0-0.4); Eosinophils % (Auto) 1.7 % (0.0-4.3); Hematocrit 23.7 % (30.3-42.9); Hemoglobin 7.5 gm/dl (10.1-14.3); Lymphocytes # (Auto) 1.9 K/mm3 (1.2-5.4); Lymphocytes % (Auto) 16.7 % (13.4-35.0); Mean Corpuscular HGB Conc 32 % (30-34); Mean Corpuscular Hemoglobin 28 pg (28-32); Mean Corpuscular Volume 89 fl (79-97); Monocytes # (Auto) 1.1 K/mm3 (0.0-0.8); Monocytes % (Auto) 9.8 % (0.0-7.3); Platelet Count 229 K/mm3 (140-440); Red Blood Count 2.68 M/mm3 (3.65-5.03); Red Cell Distribution Width 16.1 % (13.2-15.2)
[2016-11-01 06:34] LABS: BUN/Creatinine Ratio 32.1; Calcium 8.5 mg/dL (8.4-10.2)
[2016-11-01] MEDS ORDERED: KPHOS 20 MMOL in NACL 0.9% 250ML 250 ML IV ONE (08:30)
[2016-11-01] MEDS: MAXIPIME/NS 2 GM/100 ML 2 GM/100 ML BAG IV SCH (09:50)
[2016-11-01] MEDS: LOPRESSOR PO SCH ×3 (09:51→20:39)
[2016-11-01] MEDS: PROTONIX FEEDTUBE SCH (09:51)
[2016-11-01] MEDS: NORVASC PO SCH (09:51)
--- NOTE | 2016-11-01 10:15 | Progress Note ---
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 * Acute hypoxic respiratory failure * Left renal artery stenosis * Metabolic acidosis - improved * Anemia * Hyponatremia - multifactorial Plan: * Patient's urine output seems to have declined * hemodialysis MWF and prn * monitor for renal recovery * Rate control per cardiology * 4 k bath with dialysis * Abx/antifungal per ID * Vent management per critical care * Dose medications for renal function * Avoid potential nephrotoxins Subjective Date of service: 11/08/16 Principal diagnosis: Acute resp failure on MVS; S/P Acute CVA; Acute Encephalopathy; JUANITA Interval history: no new event Objective - Exam Narrative Exam: Gen. appearance: Patient lying in bed, no apparent distress, 4. restraints HEENT: Normocephalic, atraumatic, pupils equally round and reactive to light, extraocular movement intact, and no sclericterus,. No JVD or thyromegaly or nodule,neck supple, no carotid bruit ,mucous membranes moist, unable to examine oral cavity Heart: S1, S2, regular rate and rhythm Lungs: Clear to auscultation bilaterally, breathing comfortable Abdomen: Positive bowel sounds, nontender, nondistended, no organomegaly Extremity: No edema, cyanosis, clubbing Skin: No rash, nodules, warm, dry Neuro: Difficult to assess, facial droop, moves all 4 extremities - Vital Signs Vital signs: Vital Signs - 12hr 10/31/16 10/31/16 10/31/16 22:30 23:00 23:13 Temperature Pulse Rate 118 H 105 H Respiratory 22 19 Rate Blood Pressure 142/72 133/78 O2 Sat by Pulse 100 100 Oximetry O2 Sat by Pulse 98 Oximetry [ Assessment] 10/31/16 10/31/16 11/01/16 23:15 23:30 00:00 Temperature 99.7 F H Pulse Rate 103 H 105 H 110 H Respiratory 19 21 Rate Blood Pressure 133/78 125/82 140/83 O2 Sat by Pulse 100 99 100 Oximetry O2 Sat by Pulse Oximetry [ Assessment] 11/01/16 11/01/16 11/01/16 00:30 01:00 01:30 Temperature Pulse Rate 110 H 111 H 111 H Respiratory 17 22 16 Rate Blood Pressure 150/83 159/88 146/81 O2 Sat by Pulse 100 100 95 Oximetry O2 Sat by Pulse Oximetry [ Assessment] 11/01/16 11/01/16 11/01/16 02:00 02:30 03:00 Temperature Pulse Rate 113 H 113 H 119 H Respiratory 22 22 17 Rate Blood Pressure 152/83 168/99 176/101 O2 Sat by Pulse 92 100 99 Oximetry O2 Sat by Pulse Oximetry [ Assessment] 11/01/16 11/01/16 11/01/16 03:30 04:00 04:24 Temperature 99.6 F Pulse Rate 117 H 115 H 114 H Respiratory 19 18 Rate Blood Pressure 185/105 196/106 196/106 O2 Sat by Pulse 100 100 100 Oximetry O2 Sat by Pulse Oximetry [ Assessment] 11/01/16 11/01/16 11/01/16 04:30 04:48 05:00 Temperature 99.6 F Pulse Rate 111 H 114 H 118 H Respiratory 19 19 Rate Blood Pressure 172/91 196/106 179/94 O2 Sat by Pulse 100 99 Oximetry O2 Sat by Pulse Oximetry [ Assessment] 11/01/16 11/01/16 11/01/16 05:30 06:00 06:31 Temperature Pulse Rate 116 H 120 H 127 H Respiratory 21 24 25 H Rate Blood Pressure 181/90 168/93 168/93 O2 Sat by Pulse 99 99 Oximetry O2 Sat by Pulse Oximetry [ Assessment] 11/01/16 11/01/16 11/01/16 07:00 07:30 08:00 Temperature Pulse Rate 119 H 129 H 115 H Respiratory 23 24 24 Rate Blood Pressure 179/96 161/99 166/96 O2 Sat by Pulse 100 Oximetry O2 Sat by Pulse Oximetry [ Assessment] 11/01/16 11/01/16 11/01/16 08:30 09:00 09:30 Temperature Pulse Rate 119 H 120 H 120 H Respiratory 21 35 H 36 H Rate Blood Pressure 176/91 175/87 174/90 O2 Sat by Pulse 100 97 97 Oximetry O2 Sat by Pulse Oximetry [ Assessment] 11/01/16 11/01/16 09:51 10:00 Temperature Pulse Rate 117 H 119 H Respiratory 40 H Rate Blood Pressure 174/90 169/82 O2 Sat by Pulse 97 Oximetry O2 Sat by Pulse Oximetry [ Assessment] - Lab 11/01/16 04:55 11/01/16 04:55 Most recent lab results Calcium 8.5 mg/dL (8.4-10.2) 11/01/16 04:55 Phosphorus 1.80 mg/dL (2.5-4.5) L D 11/01/16 04:55 Magnesium 1.80 mg/dL (1.7-2.3) 11/01/16 04:55 Urine Creatinine TNR 10/29/16 07:45 Urine Sodium 36 mEq/L 09/16/16 19:19 Urine Total Protein 16 mg/dL (5-11.8) H 09/16/16 19:19
--- NOTE | 2016-11-01 10:38 | Progress Note ---
Assessment and Plan Assessment and plan: --Severe Sepsis with septic shock, recurrent. Patient still with fevers. Patient with UTI, candidemia and peritonitis due to gastric perforation and dislodged PEG Continue antibiotics per ID. patient with no fevers for the past 48 hours. --Accelerated hypertension. Add clonidine patch. --Peritonitis. Repeat CT scan of the abdomen reveals no abscess but there is persistent wall thickening involving the sigmoid colon and several loops of small bowel projecting into the pelvis. The parents suggests enteritis and colitis. --Acute hypoxic respiratory failure, status post tracheostomy, on vent more than 96hrs Pulmonary following --Acute massive CVA with mass effect; continue antiplatelets and statins --Oliguric acute kidney injury. Etiology secondary to ATN on CKD. Baseline creatinine is approximately 1.7. --Paroxysmal atrial fibrillation with rapid ventricular rate, failed cardioversion Continue current medications, Not a candidate for anticoagulation secondary to anemia thrombocytopenia and massive CVA --Anemia; probably secondary to GI bleeding Patient received multiple units of PRBC in the past, H&H has remained stable. re-consult GI if needed If patient has significant vaginal bleeding Consult MERCHANDISING STOCK ASSOCIATE as needed -Toxic metabolic encephalopathy; supportive care --Diabetes mellitus type 2, Insulin/SSI --Severe protein caloric malnutrition, nutrition supplements to proceeding --s/p Thrombocytopenia. Now resolved --DVT prophylaxis, SCDs, no pharmacological agent given anemia , thrombocytopenia, massive stroke --Full code status, very poor prognosis Dispo. Very poor prognosis. Discahrge planning is for LTACH. However, the facility will not accept the pt unless there is a PEG in place. Unfortunately at present, the patient cannot have PEG due to previous surgery. Surgery reports potentially attempting pain placement in approximately 1 month. Therefore, the plan is to see if LTACH will take patient and return to hospital to receive PEG. The high probability of a clinically significant, sudden or life threatening deterioration of the [respiratory and cardiovascular] system(s) required my full and direct attention, intervention and personal management. The aggregate critical care time was [31] minutes. This time is in addition to time spent performing reported procedures but includes the following: [x] Data Review and interpretation [x] Patient assessment and monitoring of vital signs [x] Documentation [x] Medication orders and management History Interval history: No new issues overnight. Hospitalist Physical - Constitutional Vitals: Temp Pulse Resp BP Pulse Ox 99.6 F 119 H 40 H 169/82 97 11/01/16 05:00 11/01/16 10:00 11/01/16 10:00 11/01/16 10:00 11/01/16 10:00 General appearance: Present: no acute distress, obese, other (on vent, non- responsive) - EENT Eyes: Present: PERRL, EOM intact ENT: hearing intact, clear oral mucosa, dentition normal - Neck Neck: Present: supple, normal ROM - Respiratory Respiratory effort: normal Respiratory: bilateral: diminished, rhonchi - Cardiovascular Rhythm: regular Heart Sounds: Present: S1 & S2. Absent: gallop, rub - Extremities Extremities: no ischemia, No edema, Full ROM - Abdominal General gastrointestinal: soft, non-tender, non-distended, normal bowel sounds - Integumentary Integumentary: Present: clear, warm, dry - Neurologic Neurologic: CNII-XII intact, moves all extremities Results - Labs CBC & Chem 7: 11/01/16 04:55 11/01/16 04:55 Labs: Laboratory Last Values WBC 11.2 K/mm3 (4.5-11.0) H 11/01/16 04:55 RBC 2.68 M/mm3 (3.65-5.03) L 11/01/16 04:55 Hgb 7.5 gm/dl (10.1-14.3) L 11/01/16 04:55 Hct 23.7 % (30.3-42.9) L 11/01/16 04:55 MCV 89 fl (79-97) 11/01/16 04:55 MCH 28 pg (28-32) 11/01/16 04:55 MCHC 32 % (30-34) 11/01/16 04:55 RDW 16.1 % (13.2-15.2) H 11/01/16 04:55 Plt Count 229 K/mm3 (140-440) 11/01/16 04:55 Lymph % (Auto) 16.7 % (13.4-35.0) 11/01/16 04:55 Mcclain % (Auto) 9.8 % (0.0-7.3) H 11/01/16 04:55 Eos % (Auto) 1.7 % (0.0-4.3) 11/01/16 04:55 Baso % (Auto) 1.0 % (0.0-1.8) 11/01/16 04:55 Lymph # 1.9 K/mm3 (1.2-5.4) 11/01/16 04:55 Mcclain # 1.1 K/mm3 (0.0-0.8) H 11/01/16 04:55 Eos # 0.2 K/mm3 (0.0-0.4) 11/01/16 04:55 Baso # 0.1 K/mm3 (0.0-0.1) 11/01/16 04:55 Add Manual Diff Complete 10/27/16 06:30 Total Counted 100 10/27/16 06:30 Seg Neutrophils % 70.8 % (40.0-70.0) H 11/01/16 04:55 Seg Neuts % (Manual) 78.0 % (40.0-70.0) H 10/27/16 06:30 Band Neutrophils % 0 % 10/27/16 06:30 Lymphocytes % (Manual) 14.0 % (13.4-35.0) 10/27/16 06:30 Reactive Lymphs % (Man) 0 % 10/27/16 06:30 Monocytes % (Manual) 7.0 % (0.0-7.3) 10/27/16 06:30 Eosinophils % (Manual) 0 % (0.0-4.3) 10/27/16 06:30 Basophils % (Manual) 1.0 % (0.0-1.8) 10/27/16 06:30 Metamyelocytes % 0 % 10/27/16 06:30 Myelocytes % 0 % 10/27/16 06:30 Promyelocytes % 0 % 10/27/16 06:30 Blast Cells % 0 % 10/27/16 06:30 Nucleated RBC % 2.0 % (0.0-0.9) H 10/27/16 06:30 Seg Neutrophils # 7.9 K/mm3 (1.8-7.7) H 11/01/16 04:55 Seg Neutrophils # Man 10.8 K/mm3 (1.8-7.7) H 10/27/16 06:30 Band Neutrophils # 0.0 K/mm3 10/27/16 06:30 Lymphocytes # (Manual) 1.9 K/mm3 (1.2-5.4) 10/27/16 06:30 Abs React Lymphs (Man) 0.0 K/mm3 10/27/16 06:30 Monocytes # (Manual) 1.0 K/mm3 (0.0-0.8) H 10/27/16 06:30 Eosinophils # (Manual) 0.0 K/mm3 (0.0-0.4) 10/27/16 06:30 Basophils # (Manual) 0.1 K/mm3 (0.0-0.1) 10/27/16 06:30 Metamyelocytes # 0.0 K/mm3 10/27/16 06:30 Myelocytes # 0.0 K/mm3 10/27/16 06:30 Promyelocytes # 0.0 K/mm3 10/27/16 06:30 Blast Cells # 0.0 K/mm3 10/27/16 06:30 Pathologist Review 09/13/16 04:00 WBC Morphology Not Reportable 10/27/16 06:30 Hypersegmented Neuts Not Reportable 10/27/16 06:30 Hyposegmented Neuts Not Reportable 10/27/16 06:30 Hypogranular Neuts Not Reportable 10/27/16 06:30 Smudge Cells Not Reportable 10/27/16 06:30 Toxic Granulation Not Reportable 10/27/16 06:30 Toxic Vacuolation Not Reportable 10/27/16 06:30 Dohle Bodies Not Reportable 10/27/16 06:30 Pelger-Huet Anomaly Not Reportable 10/27/16 06:30 Jasmina Rods Not Reportable 10/27/16 06:30 Platelet Estimate Cons 10/27/16 06:30 Clumped Platelets Not Reportable 10/27/16 06:30 Plt Clumps, EDTA Not Reportable 10/27/16 06:30 Large Platelets Few 10/27/16 06:30 Giant Platelets Not Reportable 10/27/16 06:30 Platelet Satelliting Not Reportable 10/27/16 06:30 Plt Morphology Comment Not Reportable 10/27/16 06:30 RBC Morphology Not Reportable 10/27/16 06:30 Dimorphic RBCs Not Reportable 10/27/16 06:30 Polychromasia Not Reportable 10/27/16 06:30 Hypochromasia Not Reportable 10/27/16 06:30 Poikilocytosis Not Reportable 10/27/16 06:30 Anisocytosis 1+ 10/27/16 06:30 Microcytosis Not Reportable 10/27/16 06:30 Macrocytosis Not Reportable 10/27/16 06:30 Spherocytes Not Reportable 10/27/16 06:30 Pappenheimer Bodies Not Reportable 10/27/16 06:30 Sickle Cells Not Reportable 10/27/16 06:30 Target Cells Not Reportable 10/27/16 06:30 Tear Drop Cells Not Reportable 10/27/16 06:30 Ovalocytes Not Reportable 10/27/16 06:30 Stomatocytes Few 10/06/16 03:50 Helmet Cells Not Reportable 10/27/16 06:30 [place] Bodies Not Reportable 10/27/16 06:30 [place] Rings Not Reportable 10/27/16 06:30 Chuck Cells Not Reportable 10/27/16 06:30 Bite Cells Not Reportable 10/27/16 06:30 Crenated Cell Not Reportable 10/27/16 06:30 Elliptocytes Not Reportable 10/27/16 06:30 Acanthocytes (Spur) Not Reportable 10/27/16 06:30 Rouleaux Not Reportable 10/27/16 06:30 Hemoglobin C Crystals Not Reportable 10/27/16 06:30 Schistocytes Not Reportable 10/27/16 06:30 Malaria parasites Not Reportable 10/27/16 06:30 ESR > 140.0 mm/Hr (0-20) 09/08/16 11:48 Jun Bodies Not Reportable 10/27/16 06:30 Hem Pathologist Commnt No 10/27/16 06:30 PT 19.0 Sec. (12.2-14.9) H 10/09/16 03:45 INR 1.51 (0.87-1.13) H 10/09/16 03:45 APTT 33.0 Sec. (24.2-36.6) 10/09/16 03:45 Thrombin Time 16.8 Sec. (15.1-19.6) 09/03/16 00:10 Fibrinogen 750 mg/dl (211-480) H 09/08/16 11:48 Lupus Anticoagulant see below 07/24/17 09:59 LA PTT Baseline See scanned report 09/12/16 09:59 dRVVT Confirm Interp Positive (Negative) H 09/12/16 09:59 dRVVT Screen 50:50 See scanned report 09/12/16 09:59 dRVVT Mix Interpret See scanned report 09/12/16 09:59 Protein C Antigen 122 % (70-140) 09/08/16 15:35 Free Protein S 97 % normal (50-147) 09/08/16 15:35 Total Protein S 109 % (70-140) 09/08/16 15:35 Antithrombin III Ag 100 % (80-120) 09/08/16 15:35 Heparin Anti-Xa, Unfract Negative (Negative) 09/29/16 13:35 Factor V Activity 182 % (65-150) H 09/08/16 15:35 POC ABG pH 7.561 (7.35-7.45) H 10/16/16 20:48 POC ABG pCO2 24.4 (35-45) L 10/16/16 20:48 POC ABG pO2 77 (80-105) L 10/16/16 20:48 POC ABG HCO3 21.9 10/16/16 20:48 POC ABG Total CO2 23 10/16/16 20:48 POC ABG O2 Sat 97 10/16/16 20:48 POC ABG Base Excess 0 10/16/16 20:48 FiO2 25 % 10/16/16 20:48 Sodium 144 mmol/L (137-145) D 11/01/16 04:55 Potassium 3.3 mmol/L (3.6-5.0) L D 11/01/16 04:55 Chloride 100.1 mmol/L (98-107) 11/01/16 04:55 Carbon Dioxide 26 mmol/L (22-30) 11/01/16 04:55 Anion Gap 21 mmol/L 11/01/16 04:55 BUN 61 mg/dL (7-17) H 11/01/16 04:55 Creatinine 1.9 mg/dL (0.7-1.2) H 11/01/16 04:55 Estimated GFR 35 ml/min 11/01/16 04:55 BUN/Creatinine Ratio 32.10 % 11/01/16 04:55 Glucose 114 mg/dL (65-100) H 11/01/16 04:55 POC Glucose 115 (70-105) H 11/01/16 06:11 Osmolality 351 Mosm/kg 09/16/16 11:47 Lactic Acid 4.50 mmol/L (0.7-2.0) H* 09/28/16 07:25 Calcium 8.5 mg/dL (8.4-10.2) 11/01/16 04:55 Phosphorus 1.80 mg/dL (2.5-4.5) L D 11/01/16 04:55 Magnesium 1.80 mg/dL (1.7-2.3) 11/01/16 04:55 Total Bilirubin 0.30 mg/dL (0.1-1.2) 10/17/16 04:24 Direct Bilirubin 0.3 mg/dL (0-0.2) H 10/10/16 05:00 Indirect Bilirubin 0.1 mg/dL 10/10/16 05:00 AST 39 units/L (5-40) 10/17/16 04:24 ALT 13 units/L (7-56) 10/17/16 04:24 Alkaline Phosphatase 138 units/L (35-129) H 10/17/16 04:24 Ammonia 27.0 umol/L (25-60) 09/07/16 08:37 Total Creatine Kinase 121 units/L (30-135) 09/29/16 20:12 CK-MB (CK-2) < 1.0 ng/mL (0.0-4.0) 09/29/16 20:12 CK-MB (CK-2) Rel Index 0.8 (0-4) 09/29/16 20:12 Troponin T 0.204 ng/mL (0.00-0.029) H* 09/29/16 20:12 C-Reactive Protein 15.80 mg/dL (0.00-1.30) H 10/11/16 04:15 Total Protein 6.2 g/dL (6.3-8.2) L 10/17/16 04:24 Albumin 1.5 g/dL (3.9-5) L 10/17/16 04:24 Albumin/Globulin Ratio 0.3 % 10/17/16 04:24 Triglycerides 137 mg/dL (2-149) 09/29/16 20:12 Cholesterol 31 mg/dL (50-199) L 09/29/16 20:12 LDL Cholesterol Direct 4 mg/dL (50-130) L 09/29/16 20:12 HDL Cholesterol 3 mg/dL (40-59) L 09/29/16 20:12 Cholesterol/HDL Ratio 10.33 % 09/29/16 20:12 Angiotensin Convert Enz See scanned report 09/08/16 11:48 Renin 0.99 ng/mL/h (0.25-5.82) 10/07/16 10:56 Aldosterone <1 ng/dL () 10/07/16 10:56 Aldosterone/Renin Dir see below 10/07/16 10:56 Serotonin Release Assay See scanned report 09/29/16 13:35 TSH 1.010 mlU/mL (0.270-4.200) 09/07/16 08:37 HCG, Qual Negative (Negative) 09/03/16 00:10 Urine Color [place] (Yellow) 10/07/16 18:30 Urine Turbidity Turbid (Clear) 10/07/16 18:30 Urine pH 7.0 (5.0-7.0) 10/07/16 18:30 Ur Specific [place] 1.012 (1.003-1.030) 10/07/16 18:30 Urine Protein 100 mg/dl mg/dL (Negative) 10/07/16 18:30 Urine Glucose (UA) Neg mg/dL (Negative) 10/07/16 18:30 Urine Ketones Neg mg/dL (Negative) 10/07/16 18:30 Urine Blood Lg (Negative) 10/07/16 18:30 Urine Nitrite Neg (Negative) 10/07/16 18:30 Urine Bilirubin Neg (Negative) 10/07/16 18:30 Urine Urobilinogen < 2.0 mg/dL (<2.0) 10/07/16 18:30 Ur Leukocyte Esterase Lg (Negative) 10/07/16 18:30 Urine WBC (Auto) > 182.0 /HPF (0.0-6.0) H 10/07/16 18:30 Urine RBC (Auto) > 182.0 /HPF (0.0-6.0) 10/07/16 18:30 U Epithel Cells (Auto) 1.0 /HPF (0-13.0) 10/07/16 18:30 Urine Bacteria (Auto) 3+ /HPF (Negative) 10/07/16 18:30 Urine WBC Clumps 2+ /HPF 09/07/16 02:47 Hyaline Casts 4 /LPF 09/07/16 02:47 Urine Mucus Few /HPF 10/07/16 18:30 Urine Yeast (Budding) 3+ /HPF 10/07/16 18:30 Urine Eosinophils None seen (None Seen) 09/07/16 16:00 Urine Total Volume TNR 10/29/16 07:45 Urine Creatinine TNR 10/29/16 07:45 Height (in) TNR 10/29/16 07:45 Weight (lb) TNR 10/29/16 07:45 Creatinine Clearance TNR 10/29/16 07:45 Urine Sodium 36 mEq/L 09/16/16 19:19 Urine Total Protein 16 mg/dL (5-11.8) H 09/16/16 19:19 Vancomycin Trough 2.3 ug/mL (5.0-20.0) L 09/21/16 13:00 Random Vancomycin 17.0 ug/mL (0-40.0) 10/20/16 06:00 Urine Opiates Screen Presumptive negative 09/03/16 15:11 Urine Methadone Screen Presumptive positive 09/03/16 15:11 Ur Barbiturates Screen Presumptive positive 09/03/16 15:11 Ur Phencyclidine Scrn Presumptive negative 09/03/16 15:11 Ur Amphetamines Screen Presumptive negative 09/03/16 15:11 U Benzodiazepines Scrn Presumptive negative 09/03/16 15:11 Urine Cocaine Screen Presumptive negative 09/03/16 15:11 U Marijuana (THC) Screen Presumptive positive 09/03/16 15:11 Drugs of Abuse Note Disclamer 09/03/16 15:11 Rheumatoid Factor 24 IU/ml (0-13) H 09/08/16 11:48 SAHIL Screen Negative (Negative) 09/07/16 09:20 Proteinase 3 (PR3) Ab <1.0 AI (<1.0) 09/07/16 09:20 Myeloperoxidase Ab <1.0 AI (<1.0) 09/07/16 09:20 Sjogren's Antibody <1.0 AI (<1.0) 09/08/16 15:35 Scl-70 Scleroderma Ab <1.0 AI (<1.0) 09/08/16 15:35 Centromere B Antibody <1.0 AI (<1.0) 09/08/16 12:02 Heparin-induced Plt Ab Negative (Negative) 09/29/16 13:35 UF Heparin High Dose 11 % Release 09/29/16 13:35 SUDHIR UFH Low Dose 0.1 6 % Release 09/29/16 13:35 SUDHIR UFH Low Dose 0.5 8 % Release 09/29/16 13:35 Cardiolipid IgG Ab <14 GPL (<=14) 09/12/16 09:59 Cardiolipid IgA Ab <11 APL (<=11) 09/12/16 09:59 Cardiolipid IgM Ab <12 MPL (<=12) 09/12/16 09:59 Complement C3 148 mg/dL (90-180) 09/07/16 09:20 Complement C4 58 mg/dL (16-47) H 09/07/16 09:20 RPR Nonreactive (Nonreactive) 09/08/16 11:48 Hepatitis A IgM Ab Non-reactive (NonReactive) 09/24/16 14:40 Hep Bs Antigen Non-reactive (Negative) 09/24/16 14:40 Hep B Core IgM Ab Non-reactive (NonReactive) 09/24/16 14:40 Hepatitis C Antibody Non-reactive (NonReactive) 09/24/16 14:40 HIV 1&2 Antibody Rapid Non react (Non React) 09/08/16 11:48 HIV P24 Antigen Non react (Non React) 09/08/16 11:48 Miscellaneous Test Flexitest 1 H 10/20/16 16:00 Blood Type A POSITIVE 10/24/16 Unknown Antibody Screen Negative 10/24/16 Unknown DELORIS Antibody Screen Negative 09/25/16 10:30 Crossmatch See Detail 10/24/16 Unknown
--- NOTE | 2016-11-01 11:07 | Progress Note ---
Assessment and Plan - Patient Problems (1) Acute respiratory failure with hypoxia Current Visit: Yes Status: Acute Plan to address problem: Continue with mechanical ventilatory support and daily SBTs as tolerated Currently tolerating ATP trials Lung protective strategies -VAP bundle, HOB >40 - SCDs for VTE prophylaxis - Stress ulcer prophylaxis -Bronchodilators- h/o asthma - TPN, accucheck with glycemic control - ABGs and CXR PRN (2) Acute blood loss anemia Current Visit: Yes Status: Resolved Plan to address problem: Transfuse for Hgh 7g/dl Monitor counts (3) Acute CVA (cerebrovascular accident) Current Visit: Yes Status: Acute Plan to address problem: CTScan -subacute MCA territory infarct Secondary stroke prophylaxis Neuroprotective measures Aspiration precautions (4) Chronic renal insufficiency Current Visit: Yes Status: Acute Qualifiers: Chronic kidney disease stage: C Plan to address problem: UF/HD per renal service Renal following (5) Uncontrolled hypertension Current Visit: Yes Status: Acute Plan to address problem: Monitor closely and adjust anti-hypertensive medications (6) Leukocytosis (leucocytosis) Current Visit: Yes Status: Acute Qualifiers: Leukocytosis type: leukemoid reaction Qualified Code(s): D72.823 - Leukemoid reaction Plan to address problem: Improving. ID following and monitoring (7) Dislodged gastrostomy tube Current Visit: Yes Status: Acute Plan to address problem: With bowel perforation/peritonitis( resolved) Remains NPO except medications and on TPN for nutritional support. (8) Fungemia Current Visit: Yes Status: Resolved Subjective Date of service: 11/01/16 Principal diagnosis: Acute resp failure on MVS; S/P Acute CVA; Acute Encephalopathy; JUANITA Interval history: Seen and examined. Vitals, labs, medications, chart reviewed. No fevers in the past 48 hours. Clonidine patch added for BP control. Follow up CT abdomen and pelvis shows features suggestive of colitis/enteritis but no intra-abdominal abscess seen. Patient continues to have paroxysmal atrial fibrillation. She failed cardioversion, and is not a candidate for anticoagulation secondary to GI bleed. On mechanical ventilatory support, tolerating SBTs On TPN, with purulent drainage from the JUAN drain. Discussed with RT and RN during interdisciplinary rounds. Objective Vital Signs - 12hr 10/31/16 10/31/16 10/31/16 23:13 23:15 23:30 Temperature Pulse Rate 103 H 105 H Respiratory 19 Rate Blood Pressure 133/78 125/82 O2 Sat by Pulse 100 99 Oximetry O2 Sat by Pulse 98 Oximetry [ Assessment] 11/01/16 11/01/16 11/01/16 00:00 00:30 01:00 Temperature 99.7 F H Pulse Rate 110 H 110 H 111 H Respiratory 21 17 22 Rate Blood Pressure 140/83 150/83 159/88 O2 Sat by Pulse 100 100 100 Oximetry O2 Sat by Pulse Oximetry [ Assessment] 11/01/16 11/01/16 11/01/16 01:30 02:00 02:30 Temperature Pulse Rate 111 H 113 H 113 H Respiratory 16 22 22 Rate Blood Pressure 146/81 152/83 168/99 O2 Sat by Pulse 95 92 100 Oximetry O2 Sat by Pulse Oximetry [ Assessment] 11/01/16 11/01/16 11/01/16 03:00 03:30 04:00 Temperature 99.6 F Pulse Rate 119 H 117 H 115 H Respiratory 17 19 18 Rate Blood Pressure 176/101 185/105 196/106 O2 Sat by Pulse 99 100 100 Oximetry O2 Sat by Pulse Oximetry [ Assessment] 11/01/16 11/01/16 11/01/16 04:24 04:30 04:48 Temperature Pulse Rate 114 H 111 H 114 H Respiratory 19 Rate Blood Pressure 196/106 172/91 196/106 O2 Sat by Pulse 100 100 Oximetry O2 Sat by Pulse Oximetry [ Assessment] 11/01/16 11/01/16 11/01/16 05:00 05:30 06:00 Temperature 99.6 F Pulse Rate 118 H 116 H 120 H Respiratory 19 21 24 Rate Blood Pressure 179/94 181/90 168/93 O2 Sat by Pulse 99 99 99 Oximetry O2 Sat by Pulse Oximetry [ Assessment] 11/01/16 11/01/16 11/01/16 06:31 07:00 07:30 Temperature Pulse Rate 127 H 119 H 129 H Respiratory 25 H 23 24 Rate Blood Pressure 168/93 179/96 161/99 O2 Sat by Pulse Oximetry O2 Sat by Pulse Oximetry [ Assessment] 11/01/16 11/01/16 11/01/16 08:00 08:30 09:00 Temperature 99.1 F Pulse Rate 115 H 119 H 120 H Respiratory 24 21 35 H Rate Blood Pressure 166/96 176/91 175/87 O2 Sat by Pulse 100 100 97 Oximetry O2 Sat by Pulse Oximetry [ Assessment] 11/01/16 11/01/16 11/01/16 09:30 09:51 10:00 Temperature Pulse Rate 120 H 117 H 119 H Respiratory 36 H 40 H Rate Blood Pressure 174/90 174/90 169/82 O2 Sat by Pulse 97 97 Oximetry O2 Sat by Pulse Oximetry [ Assessment] Constitutional: no acute distress, other (eyes open; not tracking movements) Eyes: non-icteric, other (tracheostomy tube in midline of neck) ENT: oropharynx moist Neck: supple, no lymphadenopathy Effort: normal, mildly labored Ascultation: Right: diminished breath sounds (base), Bilateral: clear, rales, rhonchi (scant) Cardiovascular: regular rate and rhythm, irregular rhythm Gastrointestinal: hypoactive bowel sounds, soft, non-tender, non-distended, other (RLQ wound dressed) Integumentary: normal, other Extremities: no cyanosis, no edema, pulses normal, no ischemia or petechiae Neurologic: pupils equal and round, other (encephalopathy, not obeying commands) Psychiatric: other (unable to assess) CBC and BMP: 12/28/16 04:00 12/29/16 05:15 ABG, PT/INR, D-dimer: ABG POC ABG pH 7.561 (7.35-7.45) H 10/16/16 20:48 POC ABG pCO2 24.4 (35-45) L 10/16/16 20:48 POC ABG pO2 77 (80-105) L 10/16/16 20:48 POC ABG HCO3 21.9 10/16/16 20:48 POC ABG Total CO2 23 10/16/16 20:48 POC ABG O2 Sat 97 10/16/16 20:48 PT/INR, D-dimer PT 19.0 Sec. (12.2-14.9) H 10/09/16 03:45 INR 1.51 (0.87-1.13) H 10/09/16 03:45 Abnormal lab findings: Abnormal Labs 09/03/16 09/03/16 09/03/16 12:12 15:07 16:20 WBC RBC Hgb Hct MCV MCH MCHC RDW Plt Count Lymph % (Auto) [place] % (Auto) Lymph # [place] # Baso # Seg Neutrophils % Seg Neuts % (Manual) Lymphocytes % (Manual) Monocytes % (Manual) Eosinophils % (Manual) Basophils % (Manual) Nucleated RBC % Seg Neutrophils # Seg Neutrophils # Man Lymphocytes # (Manual) Monocytes # (Manual) Eosinophils # (Manual) PT INR Fibrinogen dRVVT Confirm Interp Factor V Activity POC ABG pH 7.452 H POC ABG pCO2 POC ABG pO2 Sodium Potassium Chloride Carbon Dioxide BUN Creatinine Glucose POC Glucose 178 H Lactic Acid Calcium Phosphorus 2.20 L Magnesium 1.60 L Direct Bilirubin ALT Alkaline Phosphatase Troponin T C-Reactive Protein Total Protein Albumin Triglycerides Cholesterol LDL Cholesterol Direct HDL Cholesterol Urine WBC (Auto) Urine Creatinine Urine Total Protein Vancomycin Trough Rheumatoid Factor Complement C4 Miscellaneous Test Crossmatch 09/03/16 09/03/16 09/03/16 17:57 17:58 23:50 WBC RBC Hgb Hct MCV MCH MCHC RDW Plt Count Lymph % (Auto) [place] % (Auto) Lymph # [place] # Baso # Seg Neutrophils % Seg Neuts % (Manual) Lymphocytes % (Manual) Monocytes % (Manual) Eosinophils % (Manual) Basophils % (Manual) Nucleated RBC % Seg Neutrophils # Seg Neutrophils # Man Lymphocytes # (Manual) Monocytes # (Manual) Eosinophils # (Manual) PT INR Fibrinogen dRVVT Confirm Interp Factor V Activity POC ABG pH POC ABG pCO2 POC ABG pO2 Sodium Potassium Chloride Carbon Dioxide BUN Creatinine Glucose POC Glucose 162 H 145 H Lactic Acid Calcium Phosphorus 2.30 L Magnesium Direct Bilirubin ALT Alkaline Phosphatase Troponin T C-Reactive Protein Total Protein Albumin Triglycerides Cholesterol LDL Cholesterol Direct HDL Cholesterol Urine WBC (Auto) Urine Creatinine Urine Total Protein Vancomycin Trough Rheumatoid Factor Complement C4 Miscellaneous Test Crossmatch 09/04/16 09/04/16 09/04/16 03:31 03:31 05:42 WBC RBC Hgb 9.7 L D Hct MCV 72 L MCH 23 L MCHC RDW 17.5 H Plt Count Lymph % (Auto) 11.1 L [place] % (Auto) Lymph # [place] # Baso # Seg Neutrophils % 84.3 H Seg Neuts % (Manual) Lymphocytes % (Manual) Monocytes % (Manual) Eosinophils % (Manual) Basophils % (Manual) Nucleated RBC % Seg Neutrophils # 8.9 H Seg Neutrophils # Man Lymphocytes # (Manual) Monocytes # (Manual) Eosinophils # (Manual) PT INR Fibrinogen dRVVT Confirm Interp Factor V Activity POC ABG pH POC ABG pCO2 POC ABG pO2 Sodium 135 L Potassium 2.9 L* Chloride 97.2 L Carbon Dioxide 19 L BUN Creatinine 1.7 H Glucose 170 H POC Glucose 152 H Lactic Acid Calcium Phosphorus Magnesium Direct Bilirubin ALT Alkaline Phosphatase Troponin T C-Reactive Protein Total Protein Albumin Triglycerides 160 H Cholesterol LDL Cholesterol Direct HDL Cholesterol 31 L Urine WBC (Auto) Urine Creatinine Urine Total Protein Vancomycin Trough Rheumatoid Factor Complement C4 Miscellaneous Test Crossmatch 09/04/16 09/04/16 09/04/16 11:34 17:46 23:29 WBC RBC Hgb Hct MCV MCH MCHC RDW Plt Count Lymph % (Auto) [place] % (Auto) Lymph # [place] # Baso # Seg Neutrophils % Seg Neuts % (Manual) Lymphocytes % (Manual) Monocytes % (Manual) Eosinophils % (Manual) Basophils % (Manual) Nucleated RBC % Seg Neutrophils # Seg Neutrophils # Man Lymphocytes # (Manual) Monocytes # (Manual) Eosinophils # (Manual) PT INR Fibrinogen dRVVT Confirm Interp Factor V Activity POC ABG pH POC ABG pCO2 POC ABG pO2 Sodium Potassium Chloride Carbon Dioxide BUN Creatinine Glucose POC Glucose 165 H 210 H 139 H Lactic Acid Calcium Phosphorus Magnesium Direct Bilirubin ALT Alkaline Phosphatase Troponin T C-Reactive Protein Total Protein Albumin Triglycerides Cholesterol LDL Cholesterol Direct HDL Cholesterol Urine WBC (Auto) Urine Creatinine Urine Total Protein Vancomycin Trough Rheumatoid Factor Complement C4 Miscellaneous Test Crossmatch 09/05/16 09/05/16 09/05/16 04:05 04:05 05:38 WBC RBC Hgb Hct MCV 76 L D MCH 23 L MCHC RDW 17.8 H Plt Count Lymph % (Auto) [place] % (Auto) Lymph # [place] # Baso # Seg Neutrophils % Seg Neuts % (Manual) Lymphocytes % (Manual) Monocytes % (Manual) Eosinophils % (Manual) Basophils % (Manual) Nucleated RBC % Seg Neutrophils # Seg Neutrophils # Man Lymphocytes # (Manual) Monocytes # (Manual) Eosinophils # (Manual) PT INR Fibrinogen dRVVT Confirm Interp Factor V Activity POC ABG pH POC ABG pCO2 POC ABG pO2 Sodium 134 L Potassium Chloride Carbon Dioxide 18 L BUN Creatinine 1.8 H Glucose 192 H POC Glucose 175 H Lactic Acid Calcium Phosphorus Magnesium Direct Bilirubin ALT Alkaline Phosphatase Troponin T C-Reactive Protein Total Protein Albumin Triglycerides Cholesterol LDL Cholesterol Direct HDL Cholesterol Urine WBC (Auto) Urine Creatinine Urine Total Protein Vancomycin Trough Rheumatoid Factor Complement C4 Miscellaneous Test Crossmatch 09/05/16 09/05/16 09/05/16 11:38 17:48 23:22 WBC RBC Hgb Hct MCV MCH MCHC RDW Plt Count Lymph % (Auto) [place] % (Auto) Lymph # [place] # Baso # Seg Neutrophils % Seg Neuts % (Manual) Lymphocytes % (Manual) Monocytes % (Manual) Eosinophils % (Manual) Basophils % (Manual) Nucleated RBC % Seg Neutrophils # Seg Neutrophils # Man Lymphocytes # (Manual) Monocytes # (Manual) Eosinophils # (Manual) PT INR Fibrinogen dRVVT Confirm Interp Factor V Activity POC ABG pH POC ABG pCO2 POC ABG pO2 Sodium Potassium Chloride Carbon Dioxide BUN Creatinine Glucose POC Glucose 164 H 186 H 195 H Lactic Acid Calcium Phosphorus Magnesium Direct Bilirubin ALT Alkaline Phosphatase Troponin T C-Reactive Protein Total Protein Albumin Triglycerides Cholesterol LDL Cholesterol Direct HDL Cholesterol Urine WBC (Auto) Urine Creatinine Urine Total Protein Vancomycin Trough Rheumatoid Factor Complement C4 Miscellaneous Test Crossmatch 09/06/16 09/06/16 09/06/16 04:12 05:59 07:32 WBC RBC Hgb Hct MCV MCH MCHC RDW Plt Count Lymph % (Auto) [place] % (Auto) Lymph # [place] # Baso # Seg Neutrophils % Seg Neuts % (Manual) Lymphocytes % (Manual) Monocytes % (Manual) Eosinophils % (Manual) Basophils % (Manual) Nucleated RBC % Seg Neutrophils # Seg Neutrophils # Man Lymphocytes # (Manual) Monocytes # (Manual) Eosinophils # (Manual) PT INR Fibrinogen dRVVT Confirm Interp Factor V Activity POC ABG pH 7.514 H POC ABG pCO2 29.1 L POC ABG pO2 72 L Sodium 133 L Potassium 3.4 L Chloride 94.9 L Carbon Dioxide 19 L BUN 30 H Creatinine 2.1 H Glucose 139 H POC Glucose 146 H Lactic Acid Calcium Phosphorus Magnesium Direct Bilirubin ALT Alkaline Phosphatase Troponin T C-Reactive Protein Total Protein Albumin Triglycerides Cholesterol LDL Cholesterol Direct HDL Cholesterol Urine WBC (Auto) Urine Creatinine Urine Total Protein Vancomycin Trough Rheumatoid Factor Complement C4 Miscellaneous Test Crossmatch 09/06/16 09/06/16 09/06/16 11:57 17:58 19:02 WBC RBC Hgb Hct MCV MCH MCHC RDW Plt Count Lymph % (Auto) [place] % (Auto) Lymph # [place] # Baso # Seg Neutrophils % Seg Neuts % (Manual) Lymphocytes % (Manual) Monocytes % (Manual) Eosinophils % (Manual) Basophils % (Manual) Nucleated RBC % Seg Neutrophils # Seg Neutrophils # Man Lymphocytes # (Manual) Monocytes # (Manual) Eosinophils # (Manual) PT INR Fibrinogen dRVVT Confirm Interp Factor V Activity POC ABG pH 7.465 H POC ABG pCO2 32.0 L POC ABG pO2 Sodium Potassium Chloride Carbon Dioxide BUN Creatinine Glucose POC Glucose 165 H 160 H Lactic Acid Calcium Phosphorus Magnesium Direct Bilirubin ALT Alkaline Phosphatase Troponin T C-Reactive Protein Total Protein Albumin Triglycerides Cholesterol LDL Cholesterol Direct HDL Cholesterol Urine WBC (Auto) Urine Creatinine Urine Total Protein Vancomycin Trough Rheumatoid Factor Complement C4 Miscellaneous Test Crossmatch 09/06/16 09/07/16 09/07/16 23:45 02:47 02:47 WBC RBC Hgb Hct MCV MCH MCHC RDW Plt Count Lymph % (Auto) [place] % (Auto) Lymph # [place] # Baso # Seg Neutrophils % Seg Neuts % (Manual) Lymphocytes % (Manual) Monocytes % (Manual) Eosinophils % (Manual) Basophils % (Manual) Nucleated RBC % Seg Neutrophils # Seg Neutrophils # Man Lymphocytes # (Manual) Monocytes # (Manual) Eosinophils # (Manual) PT INR Fibrinogen dRVVT Confirm Interp Factor V Activity POC ABG pH POC ABG pCO2 POC ABG pO2 Sodium Potassium Chloride Carbon Dioxide BUN Creatinine Glucose POC Glucose 204 H Lactic Acid Calcium Phosphorus Magnesium Direct Bilirubin ALT Alkaline Phosphatase Troponin T C-Reactive Protein Total Protein Albumin Triglycerides Cholesterol LDL Cholesterol Direct HDL Cholesterol Urine WBC (Auto) 68.0 H Urine Creatinine 106.1 H Urine Total Protein Vancomycin Trough Rheumatoid Factor Complement C4 Miscellaneous Test Crossmatch 09/07/16 09/07/16 09/07/16 04:50 06:19 06:39 WBC RBC Hgb Hct MCV MCH MCHC RDW Plt Count Lymph % (Auto) [place] % (Auto) Lymph # [place] # Baso # Seg Neutrophils % Seg Neuts % (Manual) Lymphocytes % (Manual) Monocytes % (Manual) Eosinophils % (Manual) Basophils % (Manual) Nucleated RBC % Seg Neutrophils # Seg Neutrophils # Man Lymphocytes # (Manual) Monocytes # (Manual) Eosinophils # (Manual) PT INR Fibrinogen dRVVT Confirm Interp Factor V Activity POC ABG pH 7.457 H POC ABG pCO2 32.1 L POC ABG pO2 76 L Sodium 132 L Potassium Chloride 94.7 L Carbon Dioxide BUN 53 H Creatinine 2.9 H Glucose 151 H POC Glucose 149 H Lactic Acid Calcium Phosphorus Magnesium Direct Bilirubin ALT Alkaline Phosphatase Troponin T C-Reactive Protein Total Protein Albumin Triglycerides Cholesterol LDL Cholesterol Direct HDL Cholesterol Urine WBC (Auto) Urine Creatinine Urine Total Protein Vancomycin Trough Rheumatoid Factor Complement C4 Miscellaneous Test Crossmatch 09/07/16 09/07/16 09/07/16 09:20 11:43 11:43 WBC 19.4 H RBC Hgb 8.3 L Hct 26.4 L D MCV 72 L D MCH 22 L MCHC RDW 17.9 H Plt Count Lymph % (Auto) 8.5 L [place] % (Auto) Lymph # [place] # 1.0 H Baso # Seg Neutrophils % 85.8 H Seg Neuts % (Manual) Lymphocytes % (Manual) Monocytes % (Manual) Eosinophils % (Manual) Basophils % (Manual) Nucleated RBC % Seg Neutrophils # 16.6 H Seg Neutrophils # Man Lymphocytes # (Manual) Monocytes # (Manual) Eosinophils # (Manual) PT INR Fibrinogen dRVVT Confirm Interp Factor V Activity POC ABG pH POC ABG pCO2 POC ABG pO2 Sodium 134 L Potassium Chloride 97.2 L Carbon Dioxide 20 L BUN 58 H Creatinine 2.9 H Glucose 147 H POC Glucose Lactic Acid Calcium Phosphorus 2.40 L Magnesium 2.40 H Direct Bilirubin ALT Alkaline Phosphatase Troponin T C-Reactive Protein Total Protein 5.8 L Albumin 2.2 L Triglycerides Cholesterol LDL Cholesterol Direct HDL Cholesterol Urine WBC (Auto) Urine Creatinine Urine Total Protein Vancomycin Trough Rheumatoid Factor Complement C4 58 H Miscellaneous Test Crossmatch 09/07/16 09/07/16 09/07/16 11:50 16:00 17:31 WBC RBC Hgb Hct MCV MCH MCHC RDW Plt Count Lymph % (Auto) [place] % (Auto) Lymph # [place] # Baso # Seg Neutrophils % Seg Neuts % (Manual) Lymphocytes % (Manual) Monocytes % (Manual) Eosinophils % (Manual) Basophils % (Manual) Nucleated RBC % Seg Neutrophils # Seg Neutrophils # Man Lymphocytes # (Manual) Monocytes # (Manual) Eosinophils # (Manual) PT INR Fibrinogen dRVVT Confirm Interp Factor V Activity POC ABG pH POC ABG pCO2 POC ABG pO2 158 H Sodium Potassium Chloride Carbon Dioxide BUN Creatinine Glucose POC Glucose 175 H Lactic Acid Calcium Phosphorus Magnesium Direct Bilirubin ALT Alkaline Phosphatase Troponin T C-Reactive Protein Total Protein Albumin Triglycerides Cholesterol LDL Cholesterol Direct HDL Cholesterol Urine WBC (Auto) Urine Creatinine 66.3 H Urine Total Protein Vancomycin Trough Rheumatoid Factor Complement C4 Miscellaneous Test Crossmatch 09/07/16 09/08/16 09/08/16 23:50 05:46 06:18 WBC 17.8 H RBC 3.58 L Hgb 8.1 L Hct 25.5 L MCV 71 L MCH 23 L MCHC RDW 18.4 H Plt Count Lymph % (Auto) [place] % (Auto) Lymph # [place] # Baso # Seg Neutrophils % Seg Neuts % (Manual) 92.0 H Lymphocytes % (Manual) 6.0 L Monocytes % (Manual) Eosinophils % (Manual) Basophils % (Manual) Nucleated RBC % Seg Neutrophils # Seg Neutrophils # Man 16.4 H Lymphocytes # (Manual) 1.1 L Monocytes # (Manual) Eosinophils # (Manual) PT INR Fibrinogen dRVVT Confirm Interp Factor V Activity POC ABG pH POC ABG pCO2 34.3 L POC ABG pO2 71 L Sodium Potassium Chloride Carbon Dioxide BUN Creatinine Glucose POC Glucose 216 H Lactic Acid Calcium Phosphorus Magnesium Direct Bilirubin ALT Alkaline Phosphatase Troponin T C-Reactive Protein Total Protein Albumin Triglycerides Cholesterol LDL Cholesterol Direct HDL Cholesterol Urine WBC (Auto) Urine Creatinine Urine Total Protein Vancomycin Trough Rheumatoid Factor Complement C4 Miscellaneous Test Crossmatch 09/08/16 09/08/16 09/08/16 06:18 06:51 10:55 WBC RBC Hgb Hct MCV MCH MCHC RDW Plt Count Lymph % (Auto) [place] % (Auto) Lymph # [place] # Baso # Seg Neutrophils % Seg Neuts % (Manual) Lymphocytes % (Manual) Monocytes % (Manual) Eosinophils % (Manual) Basophils % (Manual) Nucleated RBC % Seg Neutrophils # Seg Neutrophils # Man Lymphocytes # (Manual) Monocytes # (Manual) Eosinophils # (Manual) PT INR Fibrinogen dRVVT Confirm Interp Factor V Activity POC ABG pH POC ABG pCO2 POC ABG pO2 Sodium 133 L Potassium Chloride 96.9 L Carbon Dioxide 20 L BUN 63 H Creatinine 2.7 H Glucose 195 H POC Glucose 204 H 169 H Lactic Acid Calcium Phosphorus Magnesium Direct Bilirubin ALT Alkaline Phosphatase Troponin T C-Reactive Protein Total Protein Albumin Triglycerides Cholesterol LDL Cholesterol Direct HDL Cholesterol Urine WBC (Auto) Urine Creatinine Urine Total Protein Vancomycin Trough Rheumatoid Factor Complement C4 Miscellaneous Test Crossmatch 09/08/16 09/08/16 09/08/16 11:48 11:48 11:48 WBC RBC Hgb Hct MCV MCH MCHC RDW Plt Count Lymph % (Auto) [place] % (Auto) Lymph # [place] # Baso # Seg Neutrophils % Seg Neuts % (Manual) Lymphocytes % (Manual) Monocytes % (Manual) Eosinophils % (Manual) Basophils % (Manual) Nucleated RBC % Seg Neutrophils # Seg Neutrophils # Man Lymphocytes # (Manual) Monocytes # (Manual) Eosinophils # (Manual) PT INR Fibrinogen 750 H dRVVT Confirm Interp Factor V Activity POC ABG pH POC ABG pCO2 POC ABG pO2 Sodium Potassium Chloride Carbon Dioxide BUN Creatinine Glucose POC Glucose Lactic Acid Calcium Phosphorus Magnesium Direct Bilirubin ALT Alkaline Phosphatase Troponin T C-Reactive Protein 15.70 H Total Protein Albumin Triglycerides Cholesterol LDL Cholesterol Direct HDL Cholesterol Urine WBC (Auto) Urine Creatinine Urine Total Protein Vancomycin Trough Rheumatoid Factor 24 H Complement C4 Miscellaneous Test Crossmatch 09/08/16 09/08/16 09/09/16 15:35 18:25 00:24 WBC RBC Hgb Hct MCV MCH MCHC RDW Plt Count Lymph % (Auto) [place] % (Auto) Lymph # [place] # Baso # Seg Neutrophils % Seg Neuts % (Manual) Lymphocytes % (Manual) Monocytes % (Manual) Eosinophils % (Manual) Basophils % (Manual) Nucleated RBC % Seg Neutrophils # Seg Neutrophils # Man Lymphocytes # (Manual) Monocytes # (Manual) Eosinophils # (Manual) PT INR Fibrinogen dRVVT Confirm Interp Factor V Activity 182 H POC ABG pH POC ABG pCO2 POC ABG pO2 Sodium Potassium Chloride Carbon Dioxide BUN Creatinine Glucose POC Glucose 184 H 216 H Lactic Acid Calcium Phosphorus Magnesium Direct Bilirubin ALT Alkaline Phosphatase Troponin T C-Reactive Protein Total Protein Albumin Triglycerides Cholesterol LDL Cholesterol Direct HDL Cholesterol Urine WBC (Auto) Urine Creatinine Urine Total Protein Vancomycin Trough Rheumatoid Factor Complement C4 Miscellaneous Test Crossmatch 09/09/16 09/09/16 09/09/16 03:00 03:00 04:04 WBC 27.9 H RBC Hgb 8.7 L Hct 28.1 L MCV 72 L MCH 22 L MCHC RDW 18.4 H Plt Count 485 H Lymph % (Auto) [place] % (Auto) Lymph # [place] # Baso # Seg Neutrophils % Seg Neuts % (Manual) 77.0 H Lymphocytes % (Manual) 9.0 L Monocytes % (Manual) Eosinophils % (Manual) Basophils % (Manual) Nucleated RBC % Seg Neutrophils # Seg Neutrophils # Man 21.5 H Lymphocytes # (Manual) Monocytes # (Manual) 2.0 H Eosinophils # (Manual) PT INR Fibrinogen dRVVT Confirm Interp Factor V Activity POC ABG pH POC ABG pCO2 POC ABG pO2 121 H Sodium 135 L Potassium Chloride 96.3 L Carbon Dioxide 21 L BUN 83 H Creatinine 3.0 H Glucose 135 H POC Glucose Lactic Acid Calcium Phosphorus Magnesium Direct Bilirubin ALT Alkaline Phosphatase Troponin T C-Reactive Protein Total Protein Albumin Triglycerides Cholesterol LDL Cholesterol Direct HDL Cholesterol Urine WBC (Auto) Urine Creatinine Urine Total Protein Vancomycin Trough Rheumatoid Factor Complement C4 Miscellaneous Test Crossmatch 09/09/16 09/09/16 09/09/16 05:41 11:55 14:13 WBC RBC Hgb Hct MCV MCH MCHC RDW Plt Count Lymph % (Auto) [place] % (Auto) Lymph # [place] # Baso # Seg Neutrophils % Seg Neuts % (Manual) Lymphocytes % (Manual) Monocytes % (Manual) Eosinophils % (Manual) Basophils % (Manual) Nucleated RBC % Seg Neutrophils # Seg Neutrophils # Man Lymphocytes # (Manual) Monocytes # (Manual) Eosinophils # (Manual) PT INR Fibrinogen dRVVT Confirm Interp Factor V Activity POC ABG pH POC ABG pCO2 POC ABG pO2 Sodium Potassium Chloride Carbon Dioxide BUN Creatinine Glucose POC Glucose 155 H 186 H Lactic Acid Calcium Phosphorus Magnesium Direct Bilirubin ALT Alkaline Phosphatase Troponin T C-Reactive Protein Total Protein Albumin Triglycerides Cholesterol LDL Cholesterol Direct HDL Cholesterol Urine WBC (Auto) 25.0 H Urine Creatinine Urine Total Protein Vancomycin Trough Rheumatoid Factor Complement C4 Miscellaneous Test Crossmatch 09/09/16 09/09/16 09/10/16 17:33 23:13 05:09 WBC RBC Hgb Hct MCV MCH MCHC RDW Plt Count Lymph % (Auto) [place] % (Auto) Lymph # [place] # Baso # Seg Neutrophils % Seg Neuts % (Manual) Lymphocytes % (Manual) Monocytes % (Manual) Eosinophils % (Manual) Basophils % (Manual) Nucleated RBC % Seg Neutrophils # Seg Neutrophils # Man Lymphocytes # (Manual) Monocytes # (Manual) Eosinophils # (Manual) PT INR Fibrinogen dRVVT Confirm Interp Factor V Activity POC ABG pH POC ABG pCO2 POC ABG pO2 74 L Sodium Potassium Chloride Carbon Dioxide BUN Creatinine Glucose POC Glucose 211 H 215 H Lactic Acid Calcium Phosphorus Magnesium Direct Bilirubin ALT Alkaline Phosphatase Troponin T C-Reactive Protein Total Protein Albumin Triglycerides Cholesterol LDL Cholesterol Direct HDL Cholesterol Urine WBC (Auto) Urine Creatinine Urine Total Protein Vancomycin Trough Rheumatoid Factor Complement C4 Miscellaneous Test Crossmatch 09/10/16 09/10/16 09/10/16 05:17 05:17 11:31 WBC 15.8 H RBC 3.25 L Hgb 7.3 L Hct 22.9 L MCV 71 L MCH 23 L MCHC RDW 18.4 H Plt Count Lymph % (Auto) [place] % (Auto) Lymph # [place] # Baso # Seg Neutrophils % Seg Neuts % (Manual) 91.0 H Lymphocytes % (Manual) 4.0 L Monocytes % (Manual) Eosinophils % (Manual) Basophils % (Manual) Nucleated RBC % Seg Neutrophils # Seg Neutrophils # Man 14.4 H Lymphocytes # (Manual) 0.6 L Monocytes # (Manual) Eosinophils # (Manual) PT INR Fibrinogen dRVVT Confirm Interp Factor V Activity POC ABG pH POC ABG pCO2 POC ABG pO2 Sodium Potassium Chloride Carbon Dioxide 21 L BUN 93 H Creatinine 2.9 H Glucose 146 H POC Glucose 188 H Lactic Acid Calcium 8.1 L Phosphorus Magnesium Direct Bilirubin ALT Alkaline Phosphatase Troponin T C-Reactive Protein Total Protein Albumin Triglycerides Cholesterol LDL Cholesterol Direct HDL Cholesterol Urine WBC (Auto) Urine Creatinine Urine Total Protein Vancomycin Trough Rheumatoid Factor Complement C4 Miscellaneous Test Crossmatch 09/10/16 09/10/16 09/10/16 13:17 17:20 23:32 WBC RBC Hgb Hct MCV MCH MCHC RDW Plt Count Lymph % (Auto) [place] % (Auto) Lymph # [place] # Baso # Seg Neutrophils % Seg Neuts % (Manual) Lymphocytes % (Manual) Monocytes % (Manual) Eosinophils % (Manual) Basophils % (Manual) Nucleated RBC % Seg Neutrophils # Seg Neutrophils # Man Lymphocytes # (Manual) Monocytes # (Manual) Eosinophils # (Manual) PT INR Fibrinogen dRVVT Confirm Interp Factor V Activity POC ABG pH POC ABG pCO2 POC ABG pO2 Sodium Potassium Chloride Carbon Dioxide BUN Creatinine Glucose POC Glucose 199 H 186 H Lactic Acid Calcium Phosphorus Magnesium Direct Bilirubin ALT Alkaline Phosphatase Troponin T C-Reactive Protein Total Protein Albumin Triglycerides Cholesterol LDL Cholesterol Direct HDL Cholesterol Urine WBC (Auto) Urine Creatinine Urine Total Protein Vancomycin Trough Rheumatoid Factor Complement C4 Miscellaneous Test Crossmatch See Detail 09/11/16 09/11/16 09/11/16 05:10 05:10 05:17 WBC 28.4 H RBC Hgb 9.2 L Hct 29.3 L D MCV 73 L MCH 23 L MCHC RDW 18.9 H Plt Count 452 H Lymph % (Auto) [place] % (Auto) Lymph # [place] # Baso # Seg Neutrophils % Seg Neuts % (Manual) 89.5 H Lymphocytes % (Manual) 2.0 L Monocytes % (Manual) Eosinophils % (Manual) Basophils % (Manual) Nucleated RBC % Seg Neutrophils # Seg Neutrophils # Man 25.4 H Lymphocytes # (Manual) 0.6 L Monocytes # (Manual) 1.3 H Eosinophils # (Manual) PT INR Fibrinogen dRVVT Confirm Interp Factor V Activity POC ABG pH POC ABG pCO2 POC ABG pO2 Sodium 136 L Potassium Chloride Carbon Dioxide 18 L BUN 107 H Creatinine 2.6 H Glucose 187 H POC Glucose 230 H Lactic Acid Calcium 8.3 L Phosphorus Magnesium Direct Bilirubin ALT Alkaline Phosphatase Troponin T C-Reactive Protein Total Protein Albumin Triglycerides Cholesterol LDL Cholesterol Direct HDL Cholesterol Urine WBC (Auto) Urine Creatinine Urine Total Protein Vancomycin Trough Rheumatoid Factor Complement C4 Miscellaneous Test Crossmatch 09/11/16 09/11/16 09/11/16 05:55 12:02 17:32 WBC RBC Hgb Hct MCV MCH MCHC RDW Plt Count Lymph % (Auto) [place] % (Auto) Lymph # [place] # Baso # Seg Neutrophils % Seg Neuts % (Manual) Lymphocytes % (Manual) Monocytes % (Manual) Eosinophils % (Manual) Basophils % (Manual) Nucleated RBC % Seg Neutrophils # Seg Neutrophils # Man Lymphocytes # (Manual) Monocytes # (Manual) Eosinophils # (Manual) PT INR Fibrinogen dRVVT Confirm Interp Factor V Activity POC ABG pH POC ABG pCO2 33.8 L POC ABG pO2 Sodium Potassium Chloride Carbon Dioxide BUN Creatinine Glucose POC Glucose 191 H 239 H Lactic Acid Calcium Phosphorus Magnesium Direct Bilirubin ALT Alkaline Phosphatase Troponin T C-Reactive Protein Total Protein Albumin Triglycerides Cholesterol LDL Cholesterol Direct HDL Cholesterol Urine WBC (Auto) Urine Creatinine Urine Total Protein Vancomycin Trough Rheumatoid Factor Complement C4 Miscellaneous Test Crossmatch 09/11/16 09/12/16 09/12/16 23:52 05:09 05:32 WBC RBC Hgb Hct MCV MCH MCHC RDW Plt Count Lymph % (Auto) [place] % (Auto) Lymph # [place] # Baso # Seg Neutrophils % Seg Neuts % (Manual) Lymphocytes % (Manual) Monocytes % (Manual) Eosinophils % (Manual) Basophils % (Manual) Nucleated RBC % Seg Neutrophils # Seg Neutrophils # Man Lymphocytes # (Manual) Monocytes # (Manual) Eosinophils # (Manual) PT INR Fibrinogen dRVVT Confirm Interp Factor V Activity POC ABG pH POC ABG pCO2 34.6 L POC ABG pO2 Sodium Potassium Chloride Carbon Dioxide BUN Creatinine Glucose POC Glucose 265 H 184 H Lactic Acid Calcium Phosphorus Magnesium Direct Bilirubin ALT Alkaline Phosphatase Troponin T C-Reactive Protein Total Protein Albumin Triglycerides Cholesterol LDL Cholesterol Direct HDL Cholesterol Urine WBC (Auto) Urine Creatinine Urine Total Protein Vancomycin Trough Rheumatoid Factor Complement C4 Miscellaneous Test Crossmatch 09/12/16 09/12/16 09/12/16 06:45 06:45 07:22 WBC 31.7 H RBC 3.54 L Hgb 8.3 L Hct 25.9 L MCV 73 L MCH 23 L MCHC RDW 18.9 H Plt Count Lymph % (Auto) [place] % (Auto) Lymph # [place] # Baso # Seg Neutrophils % Seg Neuts % (Manual) 88.5 H Lymphocytes % (Manual) 4.5 L Monocytes % (Manual) Eosinophils % (Manual) Basophils % (Manual) Nucleated RBC % Seg Neutrophils # Seg Neutrophils # Man 28.1 H Lymphocytes # (Manual) Monocytes # (Manual) 1.0 H Eosinophils # (Manual) PT INR Fibrinogen dRVVT Confirm Interp Factor V Activity POC ABG pH POC ABG pCO2 POC ABG pO2 Sodium Potassium Chloride Carbon Dioxide 20 L BUN 115 H Creatinine 2.7 H Glucose 165 H POC Glucose Lactic Acid Calcium 8.0 L Phosphorus Magnesium Direct Bilirubin ALT Alkaline Phosphatase Troponin T C-Reactive Protein Total Protein Albumin Triglycerides 217 H Cholesterol LDL Cholesterol Direct HDL Cholesterol Urine WBC (Auto) Urine Creatinine Urine Total Protein Vancomycin Trough Rheumatoid Factor Complement C4 Miscellaneous Test Crossmatch 09/12/16 09/12/16 09/12/16 07:22 09:59 12:21 WBC RBC Hgb Hct MCV MCH MCHC RDW Plt Count Lymph % (Auto) [place] % (Auto) Lymph # [place] # Baso # Seg Neutrophils % Seg Neuts % (Manual) Lymphocytes % (Manual) Monocytes % (Manual) Eosinophils % (Manual) Basophils % (Manual) Nucleated RBC % Seg Neutrophils # Seg Neutrophils # Man Lymphocytes # (Manual) Monocytes # (Manual) Eosinophils # (Manual) PT INR Fibrinogen dRVVT Confirm Interp Positive H Factor V Activity POC ABG pH POC ABG pCO2 POC ABG pO2 Sodium Potassium Chloride Carbon Dioxide BUN Creatinine Glucose POC Glucose 224 H Lactic Acid Calcium Phosphorus Magnesium Direct Bilirubin ALT Alkaline Phosphatase Troponin T C-Reactive Protein 1.70 H Total Protein Albumin Triglycerides Cholesterol LDL Cholesterol Direct HDL Cholesterol Urine WBC (Auto) Urine Creatinine Urine Total Protein Vancomycin Trough Rheumatoid Factor Complement C4 Miscellaneous Test Crossmatch 09/12/16 09/12/16 09/13/16 16:51 23:28 04:00 WBC 45.0 H* RBC Hgb 9.4 L Hct MCV 75 L MCH 23 L MCHC RDW 19.0 H Plt Count 470 H Lymph % (Auto) [place] % (Auto) Lymph # [place] # Baso # Seg Neutrophils % Seg Neuts % (Manual) 89.0 H Lymphocytes % (Manual) 5.0 L Monocytes % (Manual) Eosinophils % (Manual) Basophils % (Manual) Nucleated RBC % Seg Neutrophils # Seg Neutrophils # Man 40.1 H Lymphocytes # (Manual) Monocytes # (Manual) Eosinophils # (Manual) PT INR Fibrinogen dRVVT Confirm Interp Factor V Activity POC ABG pH POC ABG pCO2 POC ABG pO2 Sodium Potassium Chloride Carbon Dioxide BUN Creatinine Glucose POC Glucose 169 H 150 H Lactic Acid Calcium Phosphorus Magnesium Direct Bilirubin ALT Alkaline Phosphatase Troponin T C-Reactive Protein Total Protein Albumin Triglycerides Cholesterol LDL Cholesterol Direct HDL Cholesterol Urine WBC (Auto) Urine Creatinine Urine Total Protein Vancomycin Trough Rheumatoid Factor Complement C4 Miscellaneous Test Crossmatch 09/13/16 09/13/16 09/13/16 04:00 11:26 17:31 WBC RBC Hgb Hct MCV MCH MCHC RDW Plt Count Lymph % (Auto) [place] % (Auto) Lymph # [place] # Baso # Seg Neutrophils % Seg Neuts % (Manual) Lymphocytes % (Manual) Monocytes % (Manual) Eosinophils % (Manual) Basophils % (Manual) Nucleated RBC % Seg Neutrophils # Seg Neutrophils # Man Lymphocytes # (Manual) Monocytes # (Manual) Eosinophils # (Manual) PT INR Fibrinogen dRVVT Confirm Interp Factor V Activity POC ABG pH POC ABG pCO2 POC ABG pO2 Sodium Potassium Chloride Carbon Dioxide 20 L BUN 116 H Creatinine 3.0 H Glucose 172 H POC Glucose 140 H 183 H Lactic Acid Calcium Phosphorus Magnesium Direct Bilirubin ALT Alkaline Phosphatase Troponin T C-Reactive Protein Total Protein 6.2 L Albumin 2.9 L Triglycerides Cholesterol LDL Cholesterol Direct HDL Cholesterol Urine WBC (Auto) Urine Creatinine Urine Total Protein Vancomycin Trough Rheumatoid Factor Complement C4 Miscellaneous Test Crossmatch 09/13/16 09/14/16 09/14/16 23:23 04:06 04:07 WBC 29.4 H RBC Hgb 8.9 L Hct 27.3 L MCV 75 L MCH 24 L MCHC RDW 19.1 H Plt Count Lymph % (Auto) [place] % (Auto) Lymph # [place] # Baso # Seg Neutrophils % Seg Neuts % (Manual) 84.0 H Lymphocytes % (Manual) 6.0 L Monocytes % (Manual) 9.0 H Eosinophils % (Manual) Basophils % (Manual) Nucleated RBC % Seg Neutrophils # Seg Neutrophils # Man 24.7 H Lymphocytes # (Manual) Monocytes # (Manual) 2.6 H Eosinophils # (Manual) PT INR Fibrinogen dRVVT Confirm Interp Factor V Activity POC ABG pH 7.342 L POC ABG pCO2 POC ABG pO2 116 H Sodium Potassium Chloride Carbon Dioxide BUN Creatinine Glucose POC Glucose 154 H Lactic Acid Calcium Phosphorus Magnesium Direct Bilirubin ALT Alkaline Phosphatase Troponin T C-Reactive Protein Total Protein Albumin Triglycerides Cholesterol LDL Cholesterol Direct HDL Cholesterol Urine WBC (Auto) Urine Creatinine Urine Total Protein Vancomycin Trough Rheumatoid Factor Complement C4 Miscellaneous Test Crossmatch 09/14/16 09/14/16 09/14/16 04:07 05:29 12:19 WBC RBC Hgb Hct MCV MCH MCHC RDW Plt Count Lymph % (Auto) [place] % (Auto) Lymph # [place] # Baso # Seg Neutrophils % Seg Neuts % (Manual) Lymphocytes % (Manual) Monocytes % (Manual) Eosinophils % (Manual) Basophils % (Manual) Nucleated RBC % Seg Neutrophils # Seg Neutrophils # Man Lymphocytes # (Manual) Monocytes # (Manual) Eosinophils # (Manual) PT INR Fibrinogen dRVVT Confirm Interp Factor V Activity POC ABG pH POC ABG pCO2 POC ABG pO2 Sodium 136 L Potassium Chloride Carbon Dioxide 18 L BUN 121 H Creatinine 2.8 H Glucose 214 H POC Glucose 239 H 181 H Lactic Acid Calcium Phosphorus Magnesium Direct Bilirubin ALT Alkaline Phosphatase Troponin T C-Reactive Protein Total Protein Albumin Triglycerides Cholesterol LDL Cholesterol Direct HDL Cholesterol Urine WBC (Auto) Urine Creatinine Urine Total Protein Vancomycin Trough Rheumatoid Factor Complement C4 Miscellaneous Test Crossmatch 09/14/16 09/14/16 09/15/16 18:12 23:37 05:00 WBC 26.1 H RBC 3.05 L Hgb 7.2 L Hct 22.9 L MCV 75 L MCH 24 L MCHC RDW 19.0 H Plt Count Lymph % (Auto) [place] % (Auto) Lymph # [place] # Baso # Seg Neutrophils % Seg Neuts % (Manual) Lymphocytes % (Manual) Monocytes % (Manual) Eosinophils % (Manual) Basophils % (Manual) Nucleated RBC % Seg Neutrophils # Seg Neutrophils # Man Lymphocytes # (Manual) Monocytes # (Manual) Eosinophils # (Manual) PT INR Fibrinogen dRVVT Confirm Interp Factor V Activity POC ABG pH POC ABG pCO2 POC ABG pO2 Sodium Potassium Chloride Carbon Dioxide BUN Creatinine Glucose POC Glucose 266 H 154 H Lactic Acid Calcium Phosphorus Magnesium Direct Bilirubin ALT Alkaline Phosphatase Troponin T C-Reactive Protein Total Protein Albumin Triglycerides Cholesterol LDL Cholesterol Direct HDL Cholesterol Urine WBC (Auto) Urine Creatinine Urine Total Protein Vancomycin Trough Rheumatoid Factor Complement C4 Miscellaneous Test Crossmatch 09/15/16 09/15/16 09/15/16 05:00 05:17 12:45 WBC RBC Hgb Hct MCV MCH MCHC RDW Plt Count Lymph % (Auto) [place] % (Auto) Lymph # [place] # Baso # Seg Neutrophils % Seg Neuts % (Manual) Lymphocytes % (Manual) Monocytes % (Manual) Eosinophils % (Manual) Basophils % (Manual) Nucleated RBC % Seg Neutrophils # Seg Neutrophils # Man Lymphocytes # (Manual) Monocytes # (Manual) Eosinophils # (Manual) PT INR Fibrinogen dRVVT Confirm Interp Factor V Activity POC ABG pH POC ABG pCO2 POC ABG pO2 Sodium Potassium 5.2 H Chloride Carbon Dioxide 18 L BUN 139 H Creatinine 3.7 H Glucose 227 H POC Glucose 226 H 244 H Lactic Acid Calcium 8.3 L Phosphorus Magnesium Direct Bilirubin ALT Alkaline Phosphatase Troponin T C-Reactive Protein Total Protein Albumin Triglycerides Cholesterol LDL Cholesterol Direct HDL Cholesterol Urine WBC (Auto) Urine Creatinine Urine Total Protein Vancomycin Trough Rheumatoid Factor Complement C4 Miscellaneous Test Crossmatch 09/15/16 09/15/16 09/15/16 14:32 17:33 23:35 WBC RBC Hgb Hct MCV MCH MCHC RDW Plt Count Lymph % (Auto) [place] % (Auto) Lymph # [place] # Baso # Seg Neutrophils % Seg Neuts % (Manual) Lymphocytes % (Manual) Monocytes % (Manual) Eosinophils % (Manual) Basophils % (Manual) Nucleated RBC % Seg Neutrophils # Seg Neutrophils # Man Lymphocytes # (Manual) Monocytes # (Manual) Eosinophils # (Manual) PT INR Fibrinogen dRVVT Confirm Interp Factor V Activity POC ABG pH POC ABG pCO2 27.7 L POC ABG pO2 120 H Sodium Potassium Chloride Carbon Dioxide BUN Creatinine Glucose POC Glucose 232 H 167 H Lactic Acid Calcium Phosphorus Magnesium Direct Bilirubin ALT Alkaline Phosphatase Troponin T C-Reactive Protein Total Protein Albumin Triglycerides Cholesterol LDL Cholesterol Direct HDL Cholesterol Urine WBC (Auto) Urine Creatinine Urine Total Protein Vancomycin Trough Rheumatoid Factor Complement C4 Miscellaneous Test Crossmatch 09/16/16 09/16/16 09/16/16 03:58 10:27 10:27 WBC 19.0 H RBC 2.77 L Hgb 6.5 L Hct 20.9 L MCV 76 L MCH 23 L MCHC RDW 19.3 H Plt Count Lymph % (Auto) 11.0 L [place] % (Auto) Lymph # [place] # 1.1 H Baso # Seg Neutrophils % 82.5 H Seg Neuts % (Manual) Lymphocytes % (Manual) Monocytes % (Manual) Eosinophils % (Manual) Basophils % (Manual) Nucleated RBC % Seg Neutrophils # 15.7 H Seg Neutrophils # Man Lymphocytes # (Manual) Monocytes # (Manual) Eosinophils # (Manual) PT INR Fibrinogen dRVVT Confirm Interp Factor V Activity POC ABG pH POC ABG pCO2 POC ABG pO2 Sodium Potassium Chloride 109.3 H Carbon Dioxide 18 L BUN 139 H Creatinine 4.1 H Glucose 144 H POC Glucose 146 H Lactic Acid Calcium 8.1 L Phosphorus Magnesium Direct Bilirubin ALT Alkaline Phosphatase Troponin T C-Reactive Protein Total Protein Albumin Triglycerides Cholesterol LDL Cholesterol Direct HDL Cholesterol Urine WBC (Auto) Urine Creatinine Urine Total Protein Vancomycin Trough Rheumatoid Factor Complement C4 Miscellaneous Test Crossmatch 09/16/16 09/16/16 09/16/16 12:04 12:10 13:55 WBC RBC Hgb Hct MCV MCH MCHC RDW Plt Count Lymph % (Auto) [place] % (Auto) Lymph # [place] # Baso # Seg Neutrophils % Seg Neuts % (Manual) Lymphocytes % (Manual) Monocytes % (Manual) Eosinophils % (Manual) Basophils % (Manual) Nucleated RBC % Seg Neutrophils # Seg Neutrophils # Man Lymphocytes # (Manual) Monocytes # (Manual) Eosinophils # (Manual) PT INR Fibrinogen dRVVT Confirm Interp Factor V Activity POC ABG pH POC ABG pCO2 32.9 L POC ABG pO2 Sodium Potassium Chloride Carbon Dioxide BUN Creatinine Glucose POC Glucose 185 H Lactic Acid Calcium Phosphorus Magnesium Direct Bilirubin ALT Alkaline Phosphatase Troponin T C-Reactive Protein Total Protein Albumin Triglycerides Cholesterol LDL Cholesterol Direct HDL Cholesterol Urine WBC (Auto) Urine Creatinine Urine Total Protein Vancomycin Trough Rheumatoid Factor Complement C4 Miscellaneous Test Crossmatch See Detail 09/16/16 09/16/16 09/16/16 17:55 19:19 23:48 WBC RBC Hgb Hct MCV MCH MCHC RDW Plt Count Lymph % (Auto) [place] % (Auto) Lymph # [place] # Baso # Seg Neutrophils % Seg Neuts % (Manual) Lymphocytes % (Manual) Monocytes % (Manual) Eosinophils % (Manual) Basophils % (Manual) Nucleated RBC % Seg Neutrophils # Seg Neutrophils # Man Lymphocytes # (Manual) Monocytes # (Manual) Eosinophils # (Manual) PT INR Fibrinogen dRVVT Confirm Interp Factor V Activity POC ABG pH POC ABG pCO2 POC ABG pO2 Sodium Potassium Chloride Carbon Dioxide BUN Creatinine Glucose POC Glucose 222 H 107 H Lactic Acid Calcium Phosphorus Magnesium Direct Bilirubin ALT Alkaline Phosphatase Troponin T C-Reactive Protein Total Protein Albumin Triglycerides Cholesterol LDL Cholesterol Direct HDL Cholesterol Urine WBC (Auto) Urine Creatinine 47.4 H Urine Total Protein 16 H Vancomycin Trough Rheumatoid Factor Complement C4 Miscellaneous Test Crossmatch 09/17/16 09/17/16 09/17/16 03:45 03:45 04:55 WBC 19.6 H RBC 3.41 L Hgb 8.5 L Hct 26.7 L MCV 78 L MCH 25 L MCHC RDW 19.9 H Plt Count Lymph % (Auto) 9.3 L [place] % (Auto) Lymph # [place] # 1.2 H Baso # Seg Neutrophils % 83.9 H Seg Neuts % (Manual) Lymphocytes % (Manual) Monocytes % (Manual) Eosinophils % (Manual) Basophils % (Manual) Nucleated RBC % Seg Neutrophils # 16.4 H Seg Neutrophils # Man Lymphocytes # (Manual) Monocytes # (Manual) Eosinophils # (Manual) PT INR Fibrinogen dRVVT Confirm Interp Factor V Activity POC ABG pH POC ABG pCO2 POC ABG pO2 Sodium 146 H Potassium 5.1 H Chloride 110.9 H Carbon Dioxide 16 L BUN 146 H Creatinine 4.0 H Glucose 108 H POC Glucose 133 H Lactic Acid Calcium Phosphorus Magnesium 3.00 H Direct Bilirubin ALT Alkaline Phosphatase Troponin T C-Reactive Protein Total Protein Albumin Triglycerides Cholesterol LDL Cholesterol Direct HDL Cholesterol Urine WBC (Auto) Urine Creatinine Urine Total Protein Vancomycin Trough Rheumatoid Factor Complement C4 Miscellaneous Test Crossmatch 09/17/16 09/17/16 09/17/16 11:15 17:33 23:47 WBC RBC Hgb Hct MCV MCH MCHC RDW Plt Count Lymph % (Auto) [place] % (Auto) Lymph # [place] # Baso # Seg Neutrophils % Seg Neuts % (Manual) Lymphocytes % (Manual) Monocytes % (Manual) Eosinophils % (Manual) Basophils % (Manual) Nucleated RBC % Seg Neutrophils # Seg Neutrophils # Man Lymphocytes # (Manual) Monocytes # (Manual) Eosinophils # (Manual) PT INR Fibrinogen dRVVT Confirm Interp Factor V Activity POC ABG pH POC ABG pCO2 POC ABG pO2 Sodium Potassium Chloride Carbon Dioxide BUN Creatinine Glucose POC Glucose 176 H 246 H 148 H Lactic Acid Calcium Phosphorus Magnesium Direct Bilirubin ALT Alkaline Phosphatase Troponin T C-Reactive Protein Total Protein Albumin Triglycerides Cholesterol LDL Cholesterol Direct HDL Cholesterol Urine WBC (Auto) Urine Creatinine Urine Total Protein Vancomycin Trough Rheumatoid Factor Complement C4 Miscellaneous Test Crossmatch 09/18/16 09/18/16 09/18/16 05:33 08:31 08:31 WBC 18.0 H RBC 3.17 L Hgb 9.0 L Hct 25.7 L MCV MCH MCHC 35 H RDW 20.4 H Plt Count Lymph % (Auto) [place] % (Auto) Lymph # [place] # Baso # Seg Neutrophils % Seg Neuts % (Manual) Lymphocytes % (Manual) Monocytes % (Manual) Eosinophils % (Manual) Basophils % (Manual) Nucleated RBC % Seg Neutrophils # Seg Neutrophils # Man Lymphocytes # (Manual) Monocytes # (Manual) Eosinophils # (Manual) PT INR Fibrinogen dRVVT Confirm Interp Factor V Activity POC ABG pH POC ABG pCO2 POC ABG pO2 Sodium Potassium Chloride Carbon Dioxide 15 L BUN 124 H Creatinine 3.8 H Glucose POC Glucose 120 H Lactic Acid Calcium 8.1 L Phosphorus Magnesium Direct Bilirubin ALT Alkaline Phosphatase Troponin T C-Reactive Protein Total Protein Albumin Triglycerides Cholesterol LDL Cholesterol Direct HDL Cholesterol Urine WBC (Auto) Urine Creatinine Urine Total Protein Vancomycin Trough Rheumatoid Factor Complement C4 Miscellaneous Test Crossmatch 09/18/16 09/18/16 09/18/16 12:03 15:34 17:50 WBC RBC Hgb Hct MCV MCH MCHC RDW Plt Count Lymph % (Auto) [place] % (Auto) Lymph # [place] # Baso # Seg Neutrophils % Seg Neuts % (Manual) Lymphocytes % (Manual) Monocytes % (Manual) Eosinophils % (Manual) Basophils % (Manual) Nucleated RBC % Seg Neutrophils # Seg Neutrophils # Man Lymphocytes # (Manual) Monocytes # (Manual) Eosinophils # (Manual) PT INR Fibrinogen dRVVT Confirm Interp Factor V Activity POC ABG pH POC ABG pCO2 25.7 L POC ABG pO2 66 L Sodium Potassium Chloride Carbon Dioxide BUN Creatinine Glucose POC Glucose 156 H 220 H Lactic Acid Calcium Phosphorus Magnesium Direct Bilirubin ALT Alkaline Phosphatase Troponin T C-Reactive Protein Total Protein Albumin Triglycerides Cholesterol LDL Cholesterol Direct HDL Cholesterol Urine WBC (Auto) Urine Creatinine Urine Total Protein Vancomycin Trough Rheumatoid Factor Complement C4 Miscellaneous Test Crossmatch 09/19/16 09/19/16 09/19/16 06:21 09:50 09:50 WBC 17.1 H RBC 3.49 L Hgb 9.0 L Hct 28.1 L MCV MCH 26 L MCHC RDW 20.8 H Plt Count Lymph % (Auto) 11.5 L [place] % (Auto) 7.5 H Lymph # [place] # 1.3 H Baso # Seg Neutrophils % 79.8 H Seg Neuts % (Manual) Lymphocytes % (Manual) Monocytes % (Manual) Eosinophils % (Manual) Basophils % (Manual) Nucleated RBC % Seg Neutrophils # 13.7 H Seg Neutrophils # Man Lymphocytes # (Manual) Monocytes # (Manual) Eosinophils # (Manual) PT INR Fibrinogen dRVVT Confirm Interp Factor V Activity POC ABG pH POC ABG pCO2 POC ABG pO2 Sodium Potassium Chloride 108.6 H Carbon Dioxide 15 L BUN 125 H Creatinine 4.1 H Glucose 124 H POC Glucose 119 H Lactic Acid Calcium Phosphorus Magnesium Direct Bilirubin ALT Alkaline Phosphatase Troponin T C-Reactive Protein Total Protein Albumin Triglycerides Cholesterol LDL Cholesterol Direct HDL Cholesterol Urine WBC (Auto) Urine Creatinine Urine Total Protein Vancomycin Trough Rheumatoid Factor Complement C4 Miscellaneous Test Crossmatch 09/19/16 09/19/16 09/19/16 11:25 17:53 23:36 WBC RBC Hgb Hct MCV MCH MCHC RDW Plt Count Lymph % (Auto) [place] % (Auto) Lymph # [place] # Baso # Seg Neutrophils % Seg Neuts % (Manual) Lymphocytes % (Manual) Monocytes % (Manual) Eosinophils % (Manual) Basophils % (Manual) Nucleated RBC % Seg Neutrophils # Seg Neutrophils # Man Lymphocytes # (Manual) Monocytes # (Manual) Eosinophils # (Manual) PT INR Fibrinogen dRVVT Confirm Interp Factor V Activity POC ABG pH POC ABG pCO2 POC ABG pO2 Sodium Potassium Chloride Carbon Dioxide BUN Creatinine Glucose POC Glucose 160 H 245 H 121 H Lactic Acid Calcium Phosphorus Magnesium Direct Bilirubin ALT Alkaline Phosphatase Troponin T C-Reactive Protein Total Protein Albumin Triglycerides Cholesterol LDL Cholesterol Direct HDL Cholesterol Urine WBC (Auto) Urine Creatinine Urine Total Protein Vancomycin Trough Rheumatoid Factor Complement C4 Miscellaneous Test Crossmatch 09/20/16 09/20/16 09/20/16 04:10 04:10 04:10 WBC 17.0 H RBC 3.21 L Hgb 8.2 L Hct 25.5 L MCV MCH 26 L MCHC RDW 20.9 H Plt Count Lymph % (Auto) [place] % (Auto) Lymph # [place] # Baso # Seg Neutrophils % Seg Neuts % (Manual) Lymphocytes % (Manual) Monocytes % (Manual) Eosinophils % (Manual) Basophils % (Manual) Nucleated RBC % Seg Neutrophils # Seg Neutrophils # Man Lymphocytes # (Manual) Monocytes # (Manual) Eosinophils # (Manual) PT INR Fibrinogen dRVVT Confirm Interp Factor V Activity POC ABG pH POC ABG pCO2 POC ABG pO2 Sodium Potassium Chloride 111.0 H Carbon Dioxide 16 L BUN 129 H Creatinine 3.7 H Glucose 115 H POC Glucose Lactic Acid Calcium 8.2 L Phosphorus Magnesium Direct Bilirubin ALT Alkaline Phosphatase Troponin T C-Reactive Protein Total Protein Albumin Triglycerides 243 H Cholesterol LDL Cholesterol Direct HDL Cholesterol Urine WBC (Auto) Urine Creatinine Urine Total Protein Vancomycin Trough Rheumatoid Factor Complement C4 Miscellaneous Test Crossmatch 09/20/16 09/20/16 09/20/16 05:40 11:52 16:50 WBC RBC Hgb Hct MCV MCH MCHC RDW Plt Count Lymph % (Auto) [place] % (Auto) Lymph # [place] # Baso # Seg Neutrophils % Seg Neuts % (Manual) Lymphocytes % (Manual) Monocytes % (Manual) Eosinophils % (Manual) Basophils % (Manual) Nucleated RBC % Seg Neutrophils # Seg Neutrophils # Man Lymphocytes # (Manual) Monocytes # (Manual) Eosinophils # (Manual) PT INR Fibrinogen dRVVT Confirm Interp Factor V Activity POC ABG pH POC ABG pCO2 POC ABG pO2 Sodium Potassium Chloride Carbon Dioxide BUN Creatinine Glucose POC Glucose 131 H 183 H 236 H Lactic Acid Calcium Phosphorus Magnesium Direct Bilirubin ALT Alkaline Phosphatase Troponin T C-Reactive Protein Total Protein Albumin Triglycerides Cholesterol LDL Cholesterol Direct HDL Cholesterol Urine WBC (Auto) Urine Creatinine Urine Total Protein Vancomycin Trough Rheumatoid Factor Complement C4 Miscellaneous Test Crossmatch 0809/21/16 09/21/16 23:51 03:30 04:44 WBC RBC Hgb Hct MCV MCH MCHC RDW Plt Count Lymph % (Auto) [place] % (Auto) Lymph # [place] # Baso # Seg Neutrophils % Seg Neuts % (Manual) Lymphocytes % (Manual) Monocytes % (Manual) Eosinophils % (Manual) Basophils % (Manual) Nucleated RBC % Seg Neutrophils # Seg Neutrophils # Man Lymphocytes # (Manual) Monocytes # (Manual) Eosinophils # (Manual) PT INR Fibrinogen dRVVT Confirm Interp Factor V Activity POC ABG pH POC ABG pCO2 POC ABG pO2 Sodium Potassium Chloride Carbon Dioxide BUN Creatinine Glucose POC Glucose 114 H 141 H Lactic Acid Calcium Phosphorus Magnesium 2.70 H Direct Bilirubin ALT Alkaline Phosphatase Troponin T C-Reactive Protein Total Protein Albumin Triglycerides Cholesterol LDL Cholesterol Direct HDL Cholesterol Urine WBC (Auto) Urine Creatinine Urine Total Protein Vancomycin Trough Rheumatoid Factor Complement C4 Miscellaneous Test Crossmatch 09/21/16 09/21/16 09/21/16 07:45 07:45 10:01 WBC 13.8 H RBC 2.94 L Hgb 7.5 L Hct 23.5 L MCV MCH 26 L MCHC RDW 21.2 H Plt Count Lymph % (Auto) 6.9 L [place] % (Auto) 9.4 H Lymph # 0.9 L [place] # 1.3 H Baso # Seg Neutrophils % 83.2 H Seg Neuts % (Manual) Lymphocytes % (Manual) Monocytes % (Manual) Eosinophils % (Manual) Basophils % (Manual) Nucleated RBC % Seg Neutrophils # 11.5 H Seg Neutrophils # Man Lymphocytes # (Manual) Monocytes # (Manual) Eosinophils # (Manual) PT INR Fibrinogen dRVVT Confirm Interp Factor V Activity POC ABG pH 7.308 L POC ABG pCO2 31.9 L POC ABG pO2 148 H Sodium 147 H Potassium Chloride 114.2 H Carbon Dioxide 15 L BUN 120 H Creatinine 3.9 H Glucose 156 H POC Glucose Lactic Acid Calcium 8.2 L Phosphorus Magnesium Direct Bilirubin ALT Alkaline Phosphatase Troponin T C-Reactive Protein Total Protein Albumin Triglycerides Cholesterol LDL Cholesterol Direct HDL Cholesterol Urine WBC (Auto) Urine Creatinine Urine Total Protein Vancomycin Trough Rheumatoid Factor Complement C4 Miscellaneous Test Crossmatch 09/21/16 09/21/16 09/21/16 12:00 12:03 13:00 WBC RBC Hgb Hct MCV MCH MCHC RDW Plt Count Lymph % (Auto) [place] % (Auto) Lymph # [place] # Baso # Seg Neutrophils % Seg Neuts % (Manual) Lymphocytes % (Manual) Monocytes % (Manual) Eosinophils % (Manual) Basophils % (Manual) Nucleated RBC % Seg Neutrophils # Seg Neutrophils # Man Lymphocytes # (Manual) Monocytes # (Manual) Eosinophils # (Manual) PT INR Fibrinogen dRVVT Confirm Interp Factor V Activity POC ABG pH POC ABG pCO2 POC ABG pO2 Sodium Potassium Chloride Carbon Dioxide BUN Creatinine Glucose POC Glucose 163 H Lactic Acid Calcium Phosphorus Magnesium Direct Bilirubin ALT Alkaline Phosphatase Troponin T C-Reactive Protein Total Protein Albumin Triglycerides Cholesterol LDL Cholesterol Direct HDL Cholesterol Urine WBC (Auto) Urine Creatinine 54.8 H Urine Total Protein Vancomycin Trough 2.3 L Rheumatoid Factor Complement C4 Miscellaneous Test Crossmatch 09/21/16 09/21/16 09/22/16 16:51 23:17 06:27 WBC RBC Hgb Hct MCV MCH MCHC RDW Plt Count Lymph % (Auto) [place] % (Auto) Lymph # [place] # Baso # Seg Neutrophils % Seg Neuts % (Manual) Lymphocytes % (Manual) Monocytes % (Manual) Eosinophils % (Manual) Basophils % (Manual) Nucleated RBC % Seg Neutrophils # Seg Neutrophils # Man Lymphocytes # (Manual) Monocytes # (Manual) Eosinophils # (Manual) PT INR Fibrinogen dRVVT Confirm Interp Factor V Activity POC ABG pH POC ABG pCO2 POC ABG pO2 Sodium Potassium Chloride Carbon Dioxide BUN Creatinine Glucose POC Glucose 206 H 114 H 115 H Lactic Acid Calcium Phosphorus Magnesium Direct Bilirubin ALT Alkaline Phosphatase Troponin T C-Reactive Protein Total Protein Albumin Triglycerides Cholesterol LDL Cholesterol Direct HDL Cholesterol Urine WBC (Auto) Urine Creatinine Urine Total Protein Vancomycin Trough Rheumatoid Factor Complement C4 Miscellaneous Test Crossmatch 09/22/16 09/22/16 09/22/16 07:50 07:50 12:00 WBC 17.8 H RBC 3.04 L Hgb 8.0 L Hct 24.7 L MCV MCH 26 L MCHC RDW 21.6 H Plt Count Lymph % (Auto) [place] % (Auto) Lymph # [place] # Baso # Seg Neutrophils % Seg Neuts % (Manual) Lymphocytes % (Manual) Monocytes % (Manual) Eosinophils % (Manual) Basophils % (Manual) Nucleated RBC % Seg Neutrophils # Seg Neutrophils # Man Lymphocytes # (Manual) Monocytes # (Manual) Eosinophils # (Manual) PT INR Fibrinogen dRVVT Confirm Interp Factor V Activity POC ABG pH POC ABG pCO2 POC ABG pO2 Sodium 150 H Potassium Chloride 118.2 H Carbon Dioxide 14 L BUN 111 H Creatinine 3.7 H Glucose 157 H POC Glucose 183 H Lactic Acid Calcium Phosphorus Magnesium Direct Bilirubin ALT Alkaline Phosphatase Troponin T C-Reactive Protein Total Protein Albumin Triglycerides Cholesterol LDL Cholesterol Direct HDL Cholesterol Urine WBC (Auto) Urine Creatinine Urine Total Protein Vancomycin Trough Rheumatoid Factor Complement C4 Miscellaneous Test Crossmatch 09/22/16 09/22/16 09/23/16 17:29 23:10 05:00 WBC 19.2 H RBC 3.13 L Hgb 8.0 L Hct 25.2 L MCV MCH 26 L MCHC RDW 22.1 H Plt Count Lymph % (Auto) [place] % (Auto) Lymph # [place] # Baso # Seg Neutrophils % Seg Neuts % (Manual) 92.0 H Lymphocytes % (Manual) 3.0 L Monocytes % (Manual) Eosinophils % (Manual) Basophils % (Manual) Nucleated RBC % Seg Neutrophils # Seg Neutrophils # Man 17.7 H Lymphocytes # (Manual) 0.6 L Monocytes # (Manual) Eosinophils # (Manual) PT INR Fibrinogen dRVVT Confirm Interp Factor V Activity POC ABG pH POC ABG pCO2 POC ABG pO2 Sodium Potassium Chloride Carbon Dioxide BUN Creatinine Glucose POC Glucose 197 H 169 H Lactic Acid Calcium Phosphorus Magnesium Direct Bilirubin ALT Alkaline Phosphatase Troponin T C-Reactive Protein Total Protein Albumin Triglycerides Cholesterol LDL Cholesterol Direct HDL Cholesterol Urine WBC (Auto) Urine Creatinine Urine Total Protein Vancomycin Trough Rheumatoid Factor Complement C4 Miscellaneous Test Crossmatch 09/23/16 09/23/16 09/23/16 05:00 05:00 05:10 WBC RBC Hgb Hct MCV MCH MCHC RDW Plt Count Lymph % (Auto) [place] % (Auto) Lymph # [place] # Baso # Seg Neutrophils % Seg Neuts % (Manual) Lymphocytes % (Manual) Monocytes % (Manual) Eosinophils % (Manual) Basophils % (Manual) Nucleated RBC % Seg Neutrophils # Seg Neutrophils # Man Lymphocytes # (Manual) Monocytes # (Manual) Eosinophils # (Manual) PT INR Fibrinogen dRVVT Confirm Interp Factor V Activity POC ABG pH POC ABG pCO2 POC ABG pO2 Sodium 147 H Potassium 3.2 L Chloride 115.7 H Carbon Dioxide 13 L BUN 111 H Creatinine 3.8 H Glucose 194 H POC Glucose 188 H Lactic Acid Calcium 7.3 L D Phosphorus Magnesium Direct Bilirubin ALT Alkaline Phosphatase Troponin T C-Reactive Protein 3.20 H Total Protein Albumin Triglycerides Cholesterol LDL Cholesterol Direct HDL Cholesterol Urine WBC (Auto) Urine Creatinine Urine Total Protein Vancomycin Trough Rheumatoid Factor Complement C4 Miscellaneous Test Crossmatch 09/23/16 09/23/16 09/23/16 11:37 12:29 18:01 WBC RBC Hgb Hct MCV MCH MCHC RDW Plt Count Lymph % (Auto) [place] % (Auto) Lymph # [place] # Baso # Seg Neutrophils % Seg Neuts % (Manual) Lymphocytes % (Manual) Monocytes % (Manual) Eosinophils % (Manual) Basophils % (Manual) Nucleated RBC % Seg Neutrophils # Seg Neutrophils # Man Lymphocytes # (Manual) Monocytes # (Manual) Eosinophils # (Manual) PT INR Fibrinogen dRVVT Confirm Interp Factor V Activity POC ABG pH POC ABG pCO2 18.9 L POC ABG pO2 143 H Sodium Potassium Chloride Carbon Dioxide BUN Creatinine Glucose POC Glucose 153 H 108 H Lactic Acid Calcium Phosphorus Magnesium Direct Bilirubin ALT Alkaline Phosphatase Troponin T C-Reactive Protein Total Protein Albumin Triglycerides Cholesterol LDL Cholesterol Direct HDL Cholesterol Urine WBC (Auto) Urine Creatinine Urine Total Protein Vancomycin Trough Rheumatoid Factor Complement C4 Miscellaneous Test Crossmatch 09/23/16 09/23/16 09/24/16 21:19 23:43 05:16 WBC RBC Hgb Hct MCV MCH MCHC RDW Plt Count Lymph % (Auto) [place] % (Auto) Lymph # [place] # Baso # Seg Neutrophils % Seg Neuts % (Manual) Lymphocytes % (Manual) Monocytes % (Manual) Eosinophils % (Manual) Basophils % (Manual) Nucleated RBC % Seg Neutrophils # Seg Neutrophils # Man Lymphocytes # (Manual) Monocytes # (Manual) Eosinophils # (Manual) PT INR Fibrinogen dRVVT Confirm Interp Factor V Activity POC ABG pH POC ABG pCO2 17.3 L POC ABG pO2 112 H Sodium Potassium Chloride Carbon Dioxide BUN Creatinine Glucose POC Glucose 143 H 164 H Lactic Acid Calcium Phosphorus Magnesium Direct Bilirubin ALT Alkaline Phosphatase Troponin T C-Reactive Protein Total Protein Albumin Triglycerides Cholesterol LDL Cholesterol Direct HDL Cholesterol Urine WBC (Auto) Urine Creatinine Urine Total Protein Vancomycin Trough Rheumatoid Factor Complement C4 Miscellaneous Test Crossmatch 09/24/16 09/24/16 09/24/16 05:21 11:58 17:06 WBC RBC Hgb Hct MCV MCH MCHC RDW Plt Count Lymph % (Auto) [place] % (Auto) Lymph # [place] # Baso # Seg Neutrophils % Seg Neuts % (Manual) Lymphocytes % (Manual) Monocytes % (Manual) Eosinophils % (Manual) Basophils % (Manual) Nucleated RBC % Seg Neutrophils # Seg Neutrophils # Man Lymphocytes # (Manual) Monocytes # (Manual) Eosinophils # (Manual) PT INR Fibrinogen dRVVT Confirm Interp Factor V Activity POC ABG pH POC ABG pCO2 POC ABG pO2 Sodium Potassium Chloride Carbon Dioxide 10 L BUN 103 H Creatinine 4.3 H Glucose 163 H POC Glucose 173 H 167 H Lactic Acid Calcium 6.5 L Phosphorus Magnesium Direct Bilirubin ALT Alkaline Phosphatase Troponin T C-Reactive Protein Total Protein Albumin Triglycerides Cholesterol LDL Cholesterol Direct HDL Cholesterol Urine WBC (Auto) Urine Creatinine Urine Total Protein Vancomycin Trough Rheumatoid Factor Complement C4 Miscellaneous Test Crossmatch 09/24/16 09/24/16 09/24/16 20:15 21:02 23:48 WBC RBC Hgb Hct MCV MCH MCHC RDW Plt Count Lymph % (Auto) [place] % (Auto) Lymph # [place] # Baso # Seg Neutrophils % Seg Neuts % (Manual) Lymphocytes % (Manual) Monocytes % (Manual) Eosinophils % (Manual) Basophils % (Manual) Nucleated RBC % Seg Neutrophils # Seg Neutrophils # Man Lymphocytes # (Manual) Monocytes # (Manual) Eosinophils # (Manual) PT INR Fibrinogen dRVVT Confirm Interp Factor V Activity POC ABG pH 7.288 L POC ABG pCO2 30.2 L 21.5 L POC ABG pO2 32 L 39 L Sodium Potassium Chloride Carbon Dioxide BUN Creatinine Glucose POC Glucose 109 H Lactic Acid Calcium Phosphorus Magnesium Direct Bilirubin ALT Alkaline Phosphatase Troponin T C-Reactive Protein Total Protein Albumin Triglycerides Cholesterol LDL Cholesterol Direct HDL Cholesterol Urine WBC (Auto) Urine Creatinine Urine Total Protein Vancomycin Trough Rheumatoid Factor Complement C4 Miscellaneous Test Crossmatch 09/25/16 09/25/16 09/25/16 04:20 04:20 04:20 WBC RBC 2.58 L Hgb 7.0 L Hct 21.0 L MCV MCH 27 L MCHC RDW 23.8 H Plt Count Lymph % (Auto) [place] % (Auto) Lymph # [place] # Baso # Seg Neutrophils % Seg Neuts % (Manual) Lymphocytes % (Manual) 12.0 L Monocytes % (Manual) Eosinophils % (Manual) 7.0 H Basophils % (Manual) 2.0 H Nucleated RBC % Seg Neutrophils # Seg Neutrophils # Man Lymphocytes # (Manual) 0.9 L Monocytes # (Manual) Eosinophils # (Manual) 0.5 H PT INR Fibrinogen dRVVT Confirm Interp Factor V Activity POC ABG pH POC ABG pCO2 POC ABG pO2 Sodium Potassium Chloride Carbon Dioxide 15 L BUN 72 H Creatinine 3.8 H Glucose POC Glucose Lactic Acid Calcium 6.0 L Phosphorus 4.60 H Magnesium 1.60 L Direct Bilirubin ALT Alkaline Phosphatase Troponin T C-Reactive Protein Total Protein Albumin Triglycerides Cholesterol LDL Cholesterol Direct HDL Cholesterol Urine WBC (Auto) Urine Creatinine Urine Total Protein Vancomycin Trough Rheumatoid Factor Complement C4 Miscellaneous Test Crossmatch 09/25/16 09/25/16 09/25/16 04:57 08:02 10:30 WBC RBC Hgb Hct MCV MCH MCHC RDW Plt Count Lymph % (Auto) [place] % (Auto) Lymph # [place] # Baso # Seg Neutrophils % Seg Neuts % (Manual) Lymphocytes % (Manual) Monocytes % (Manual) Eosinophils % (Manual) Basophils % (Manual) Nucleated RBC % Seg Neutrophils # Seg Neutrophils # Man Lymphocytes # (Manual) Monocytes # (Manual) Eosinophils # (Manual) PT INR Fibrinogen dRVVT Confirm Interp Factor V Activity POC ABG pH POC ABG pCO2 24.7 L POC ABG pO2 152 H Sodium Potassium Chloride Carbon Dioxide BUN Creatinine Glucose POC Glucose 113 H Lactic Acid Calcium Phosphorus Magnesium Direct Bilirubin ALT Alkaline Phosphatase Troponin T C-Reactive Protein Total Protein Albumin Triglycerides Cholesterol LDL Cholesterol Direct HDL Cholesterol Urine WBC (Auto) Urine Creatinine Urine Total Protein Vancomycin Trough Rheumatoid Factor Complement C4 Miscellaneous Test Crossmatch See Detail 09/25/16 09/25/16 09/25/16 12:05 17:44 23:47 WBC RBC Hgb Hct MCV MCH MCHC RDW Plt Count Lymph % (Auto) [place] % (Auto) Lymph # [place] # Baso # Seg Neutrophils % Seg Neuts % (Manual) Lymphocytes % (Manual) Monocytes % (Manual) Eosinophils % (Manual) Basophils % (Manual) Nucleated RBC % Seg Neutrophils # Seg Neutrophils # Man Lymphocytes # (Manual) Monocytes # (Manual) Eosinophils # (Manual) PT INR Fibrinogen dRVVT Confirm Interp Factor V Activity POC ABG pH POC ABG pCO2 POC ABG pO2 Sodium Potassium Chloride Carbon Dioxide BUN Creatinine Glucose POC Glucose 117 H 119 H 150 H Lactic Acid Calcium Phosphorus Magnesium Direct Bilirubin ALT Alkaline Phosphatase Troponin T C-Reactive Protein Total Protein Albumin Triglycerides Cholesterol LDL Cholesterol Direct HDL Cholesterol Urine WBC (Auto) Urine Creatinine Urine Total Protein Vancomycin Trough Rheumatoid Factor Complement C4 Miscellaneous Test Crossmatch 09/26/16 09/26/16 09/26/16 04:25 04:25 04:25 WBC RBC 2.65 L Hgb 7.4 L Hct 21.6 L MCV MCH MCHC RDW 22.5 H Plt Count Lymph % (Auto) [place] % (Auto) Lymph # [place] # Baso # Seg Neutrophils % Seg Neuts % (Manual) Lymphocytes % (Manual) 6.0 L Monocytes % (Manual) Eosinophils % (Manual) 11.0 H Basophils % (Manual) Nucleated RBC % Seg Neutrophils # Seg Neutrophils # Man Lymphocytes # (Manual) 0.4 L Monocytes # (Manual) Eosinophils # (Manual) 0.6 H PT INR Fibrinogen dRVVT Confirm Interp Factor V Activity POC ABG pH POC ABG pCO2 POC ABG pO2 Sodium Potassium Chloride 97.0 L Carbon Dioxide 19 L BUN 43 H Creatinine 2.6 H Glucose 130 H POC Glucose Lactic Acid 4.40 H* Calcium 6.7 L Phosphorus Magnesium Direct Bilirubin ALT Alkaline Phosphatase Troponin T C-Reactive Protein Total Protein Albumin Triglycerides Cholesterol LDL Cholesterol Direct HDL Cholesterol Urine WBC (Auto) Urine Creatinine Urine Total Protein Vancomycin Trough Rheumatoid Factor Complement C4 Miscellaneous Test Crossmatch 09/26/16 09/26/16 09/26/16 05:20 11:44 12:12 WBC RBC Hgb Hct MCV MCH MCHC RDW Plt Count Lymph % (Auto) [place] % (Auto) Lymph # [place] # Baso # Seg Neutrophils % Seg Neuts % (Manual) Lymphocytes % (Manual) Monocytes % (Manual) Eosinophils % (Manual) Basophils % (Manual) Nucleated RBC % Seg Neutrophils # Seg Neutrophils # Man Lymphocytes # (Manual) Monocytes # (Manual) Eosinophils # (Manual) PT INR Fibrinogen dRVVT Confirm Interp Factor V Activity POC ABG pH POC ABG pCO2 27.0 L POC ABG pO2 69 L Sodium Potassium Chloride Carbon Dioxide BUN Creatinine Glucose POC Glucose 121 H 128 H Lactic Acid Calcium Phosphorus Magnesium Direct Bilirubin ALT Alkaline Phosphatase Troponin T C-Reactive Protein Total Protein Albumin Triglycerides Cholesterol LDL Cholesterol Direct HDL Cholesterol Urine WBC (Auto) Urine Creatinine Urine Total Protein Vancomycin Trough Rheumatoid Factor Complement C4 Miscellaneous Test Crossmatch 09/26/16 09/26/16 09/27/16 18:31 23:40 08:20 WBC RBC Hgb Hct MCV MCH MCHC RDW Plt Count Lymph % (Auto) [place] % (Auto) Lymph # [place] # Baso # Seg Neutrophils % Seg Neuts % (Manual) Lymphocytes % (Manual) Monocytes % (Manual) Eosinophils % (Manual) Basophils % (Manual) Nucleated RBC % Seg Neutrophils # Seg Neutrophils # Man Lymphocytes # (Manual) Monocytes # (Manual) Eosinophils # (Manual) PT INR Fibrinogen dRVVT Confirm Interp Factor V Activity POC ABG pH POC ABG pCO2 POC ABG pO2 Sodium Potassium Chloride Carbon Dioxide BUN Creatinine Glucose POC Glucose 120 H 133 H Lactic Acid 4.10 H* Calcium Phosphorus Magnesium Direct Bilirubin ALT Alkaline Phosphatase Troponin T C-Reactive Protein Total Protein Albumin Triglycerides Cholesterol LDL Cholesterol Direct HDL Cholesterol Urine WBC (Auto) Urine Creatinine Urine Total Protein Vancomycin Trough Rheumatoid Factor Complement C4 Miscellaneous Test Crossmatch 09/27/16 09/27/16 09/27/16 11:23 15:00 18:15 WBC RBC Hgb Hct MCV MCH MCHC RDW Plt Count Lymph % (Auto) [place] % (Auto) Lymph # [place] # Baso # Seg Neutrophils % Seg Neuts % (Manual) Lymphocytes % (Manual) Monocytes % (Manual) Eosinophils % (Manual) Basophils % (Manual) Nucleated RBC % Seg Neutrophils # Seg Neutrophils # Man Lymphocytes # (Manual) Monocytes # (Manual) Eosinophils # (Manual) PT INR Fibrinogen dRVVT Confirm Interp Factor V Activity POC ABG pH 7.459 H POC ABG pCO2 27.1 L POC ABG pO2 140 H Sodium Potassium Chloride Carbon Dioxide BUN Creatinine Glucose POC Glucose 114 H 127 H Lactic Acid Calcium Phosphorus Magnesium Direct Bilirubin ALT Alkaline Phosphatase Troponin T C-Reactive Protein Total Protein Albumin Triglycerides Cholesterol LDL Cholesterol Direct HDL Cholesterol Urine WBC (Auto) Urine Creatinine Urine Total Protein Vancomycin Trough Rheumatoid Factor Complement C4 Miscellaneous Test Crossmatch 09/27/16 09/27/16 09/28/16 Unknown Unknown 03:45 WBC RBC 2.49 L Hgb 6.8 L Hct 20.7 L MCV MCH 27 L MCHC RDW 22.1 H Plt Count Lymph % (Auto) [place] % (Auto) Lymph # [place] # Baso # Seg Neutrophils % Seg Neuts % (Manual) 32.0 L Lymphocytes % (Manual) 12.0 L Monocytes % (Manual) 11.0 H Eosinophils % (Manual) 10.0 H Basophils % (Manual) Nucleated RBC % Seg Neutrophils # Seg Neutrophils # Man Lymphocytes # (Manual) 1.0 L Monocytes # (Manual) 0.9 H Eosinophils # (Manual) 0.8 H PT INR Fibrinogen dRVVT Confirm Interp Factor V Activity POC ABG pH POC ABG pCO2 POC ABG pO2 Sodium 135 L 135 L Potassium 3.5 L Chloride 93.6 L 94.4 L Carbon Dioxide 17 L 21 L BUN 45 H 28 H Creatinine 3.3 H 2.5 H Glucose 106 H POC Glucose Lactic Acid Calcium 7.3 L 7.1 L Phosphorus Magnesium Direct Bilirubin ALT Alkaline Phosphatase Troponin T C-Reactive Protein Total Protein Albumin Triglycerides Cholesterol LDL Cholesterol Direct HDL Cholesterol Urine WBC (Auto) Urine Creatinine Urine Total Protein Vancomycin Trough Rheumatoid Factor Complement C4 Miscellaneous Test Crossmatch 09/28/16 09/28/16 09/28/16 03:45 07:25 11:58 WBC 13.3 H RBC 3.01 L Hgb 8.4 L Hct 25.0 L MCV MCH MCHC RDW 20.5 H Plt Count 128 L Lymph % (Auto) [place] % (Auto) Lymph # [place] # Baso # Seg Neutrophils % Seg Neuts % (Manual) Lymphocytes % (Manual) 7.0 L Monocytes % (Manual) Eosinophils % (Manual) 6.0 H Basophils % (Manual) Nucleated RBC % Seg Neutrophils # Seg Neutrophils # Man Lymphocytes # (Manual) 0.9 L Monocytes # (Manual) Eosinophils # (Manual) 0.8 H PT INR Fibrinogen dRVVT Confirm Interp Factor V Activity POC ABG pH POC ABG pCO2 POC ABG pO2 Sodium Potassium Chloride Carbon Dioxide BUN Creatinine Glucose POC Glucose 121 H Lactic Acid 4.50 H* Calcium Phosphorus Magnesium Direct Bilirubin ALT Alkaline Phosphatase Troponin T C-Reactive Protein Total Protein Albumin Triglycerides Cholesterol LDL Cholesterol Direct HDL Cholesterol Urine WBC (Auto) Urine Creatinine Urine Total Protein Vancomycin Trough Rheumatoid Factor Complement C4 Miscellaneous Test Crossmatch 09/29/16 09/29/16 09/29/16 06:45 06:45 06:45 WBC 14.9 H RBC 2.74 L Hgb 7.6 L Hct 23.2 L MCV MCH MCHC RDW 20.5 H Plt Count 81 L Lymph % (Auto) [place] % (Auto) Lymph # [place] # Baso # Seg Neutrophils % Seg Neuts % (Manual) 81.0 H Lymphocytes % (Manual) 4.0 L Monocytes % (Manual) Eosinophils % (Manual) Basophils % (Manual) Nucleated RBC % Seg Neutrophils # Seg Neutrophils # Man 12.1 H Lymphocytes # (Manual) 0.6 L Monocytes # (Manual) Eosinophils # (Manual) PT INR Fibrinogen dRVVT Confirm Interp Factor V Activity POC ABG pH POC ABG pCO2 POC ABG pO2 Sodium 133 L Potassium 3.4 L Chloride 92.5 L Carbon Dioxide 21 L BUN 33 H Creatinine 3.0 H Glucose POC Glucose Lactic Acid Calcium 6.6 L Phosphorus Magnesium 1.40 L Direct Bilirubin 0.9 H ALT Alkaline Phosphatase Troponin T C-Reactive Protein Total Protein 4.3 L Albumin 1.3 L Triglycerides Cholesterol LDL Cholesterol Direct HDL Cholesterol Urine WBC (Auto) Urine Creatinine Urine Total Protein Vancomycin Trough Rheumatoid Factor Complement C4 Miscellaneous Test Crossmatch 09/29/16 09/29/16 09/30/16 17:52 20:12 00:07 WBC RBC Hgb Hct MCV MCH MCHC RDW Plt Count Lymph % (Auto) [place] % (Auto) Lymph # [place] # Baso # Seg Neutrophils % Seg Neuts % (Manual) Lymphocytes % (Manual) Monocytes % (Manual) Eosinophils % (Manual) Basophils % (Manual) Nucleated RBC % Seg Neutrophils # Seg Neutrophils # Man Lymphocytes # (Manual) Monocytes # (Manual) Eosinophils # (Manual) PT INR Fibrinogen dRVVT Confirm Interp Factor V Activity POC ABG pH POC ABG pCO2 POC ABG pO2 Sodium Potassium Chloride Carbon Dioxide BUN Creatinine Glucose POC Glucose 50 L 51 L Lactic Acid Calcium Phosphorus Magnesium Direct Bilirubin ALT Alkaline Phosphatase Troponin T 0.204 H* C-Reactive Protein Total Protein Albumin Triglycerides Cholesterol 31 L LDL Cholesterol Direct 4 L HDL Cholesterol 3 L Urine WBC (Auto) Urine Creatinine Urine Total Protein Vancomycin Trough Rheumatoid Factor Complement C4 Miscellaneous Test Crossmatch 09/30/16 09/30/16 09/30/16 01:30 05:15 06:10 WBC RBC Hgb Hct MCV MCH MCHC RDW Plt Count Lymph % (Auto) [place] % (Auto) Lymph # [place] # Baso # Seg Neutrophils % Seg Neuts % (Manual) Lymphocytes % (Manual) Monocytes % (Manual) Eosinophils % (Manual) Basophils % (Manual) Nucleated RBC % Seg Neutrophils # Seg Neutrophils # Man Lymphocytes # (Manual) Monocytes # (Manual) Eosinophils # (Manual) PT INR Fibrinogen dRVVT Confirm Interp Factor V Activity POC ABG pH POC ABG pCO2 POC ABG pO2 Sodium 133 L Potassium 3.2 L Chloride 93.2 L Carbon Dioxide 19 L BUN 36 H Creatinine 3.2 H Glucose 104 H POC Glucose 167 H 146 H Lactic Acid Calcium 6.4 L Phosphorus Magnesium 1.60 L Direct Bilirubin ALT Alkaline Phosphatase Troponin T C-Reactive Protein Total Protein Albumin Triglycerides Cholesterol LDL Cholesterol Direct HDL Cholesterol Urine WBC (Auto) Urine Creatinine Urine Total Protein Vancomycin Trough Rheumatoid Factor Complement C4 Miscellaneous Test Crossmatch 09/30/16 09/30/16 09/30/16 11:26 13:39 18:38 WBC RBC Hgb Hct MCV MCH MCHC RDW Plt Count Lymph % (Auto) [place] % (Auto) Lymph # [place] # Baso # Seg Neutrophils % Seg Neuts % (Manual) Lymphocytes % (Manual) Monocytes % (Manual) Eosinophils % (Manual) Basophils % (Manual) Nucleated RBC % Seg Neutrophils # Seg Neutrophils # Man Lymphocytes # (Manual) Monocytes # (Manual) Eosinophils # (Manual) PT INR Fibrinogen dRVVT Confirm Interp Factor V Activity POC ABG pH 7.479 H POC ABG pCO2 29.8 L POC ABG pO2 117 H Sodium Potassium Chloride Carbon Dioxide BUN Creatinine Glucose POC Glucose 140 H 122 H Lactic Acid Calcium Phosphorus Magnesium Direct Bilirubin ALT Alkaline Phosphatase Troponin T C-Reactive Protein Total Protein Albumin Triglycerides Cholesterol LDL Cholesterol Direct HDL Cholesterol Urine WBC (Auto) Urine Creatinine Urine Total Protein Vancomycin Trough Rheumatoid Factor Complement C4 Miscellaneous Test Crossmatch 10/01/16 10/01/16 10/01/16 06:00 06:00 12:37 WBC 12.6 H RBC 2.75 L Hgb 7.3 L Hct 23.3 L MCV MCH 27 L MCHC RDW 20.6 H Plt Count 72 L Lymph % (Auto) [place] % (Auto) Lymph # [place] # Baso # Seg Neutrophils % Seg Neuts % (Manual) 31.0 L Lymphocytes % (Manual) 8.0 L Monocytes % (Manual) Eosinophils % (Manual) Basophils % (Manual) Nucleated RBC % 3.0 H Seg Neutrophils # Seg Neutrophils # Man Lymphocytes # (Manual) 1.0 L Monocytes # (Manual) Eosinophils # (Manual) PT INR Fibrinogen dRVVT Confirm Interp Factor V Activity POC ABG pH POC ABG pCO2 POC ABG pO2 Sodium 127 L Potassium Chloride 86.8 L Carbon Dioxide 20 L BUN 42 H Creatinine 3.5 H Glucose POC Glucose 65 L Lactic Acid Calcium 7.0 L Phosphorus Magnesium Direct Bilirubin ALT Alkaline Phosphatase Troponin T C-Reactive Protein Total Protein Albumin Triglycerides Cholesterol LDL Cholesterol Direct HDL Cholesterol Urine WBC (Auto) Urine Creatinine Urine Total Protein Vancomycin Trough Rheumatoid Factor Complement C4 Miscellaneous Test Crossmatch 10/01/16 10/01/16 10/02/16 17:39 23:32 00:59 WBC RBC Hgb Hct MCV MCH MCHC RDW Plt Count Lymph % (Auto) [place] % (Auto) Lymph # [place] # Baso # Seg Neutrophils % Seg Neuts % (Manual) Lymphocytes % (Manual) Monocytes % (Manual) Eosinophils % (Manual) Basophils % (Manual) Nucleated RBC % Seg Neutrophils # Seg Neutrophils # Man Lymphocytes # (Manual) Monocytes # (Manual) Eosinophils # (Manual) PT INR Fibrinogen dRVVT Confirm Interp Factor V Activity POC ABG pH POC ABG pCO2 POC ABG pO2 Sodium Potassium Chloride Carbon Dioxide BUN Creatinine Glucose POC Glucose 107 H 52 L 145 H Lactic Acid Calcium Phosphorus Magnesium Direct Bilirubin ALT Alkaline Phosphatase Troponin T C-Reactive Protein Total Protein Albumin Triglycerides Cholesterol LDL Cholesterol Direct HDL Cholesterol Urine WBC (Auto) Urine Creatinine Urine Total Protein Vancomycin Trough Rheumatoid Factor Complement C4 Miscellaneous Test Crossmatch 10/02/16 10/02/16 10/02/16 10:30 10:50 10:50 WBC 14.7 H RBC 2.76 L Hgb 7.4 L Hct 23.6 L MCV MCH 27 L MCHC RDW 20.2 H Plt Count 79 L Lymph % (Auto) [place] % (Auto) Lymph # [place] # Baso # Seg Neutrophils % Seg Neuts % (Manual) 86.0 H Lymphocytes % (Manual) 6.0 L Monocytes % (Manual) Eosinophils % (Manual) Basophils % (Manual) Nucleated RBC % Seg Neutrophils # Seg Neutrophils # Man 12.6 H Lymphocytes # (Manual) 0.9 L Monocytes # (Manual) Eosinophils # (Manual) PT INR Fibrinogen dRVVT Confirm Interp Factor V Activity POC ABG pH 7.486 H POC ABG pCO2 30.1 L POC ABG pO2 108 H Sodium 131 L Potassium 3.4 L Chloride 89.9 L Carbon Dioxide BUN 26 H Creatinine 2.6 H Glucose POC Glucose Lactic Acid Calcium 7.0 L Phosphorus Magnesium Direct Bilirubin ALT Alkaline Phosphatase Troponin T C-Reactive Protein Total Protein Albumin Triglycerides Cholesterol LDL Cholesterol Direct HDL Cholesterol Urine WBC (Auto) Urine Creatinine Urine Total Protein Vancomycin Trough Rheumatoid Factor Complement C4 Miscellaneous Test Crossmatch 10/02/16 10/03/16 10/03/16 23:45 00:45 05:10 WBC 12.9 H RBC 2.77 L Hgb 7.6 L Hct 23.7 L MCV MCH 27 L MCHC RDW 19.7 H Plt Count 89 L Lymph % (Auto) [place] % (Auto) Lymph # [place] # Baso # Seg Neutrophils % Seg Neuts % (Manual) Lymphocytes % (Manual) 8.0 L Monocytes % (Manual) Eosinophils % (Manual) Basophils % (Manual) Nucleated RBC % Seg Neutrophils # 11.9 H Seg Neutrophils # Man Lymphocytes # (Manual) 1.0 L Monocytes # (Manual) Eosinophils # (Manual) PT INR Fibrinogen dRVVT Confirm Interp Factor V Activity POC ABG pH POC ABG pCO2 POC ABG pO2 Sodium Potassium Chloride Carbon Dioxide BUN Creatinine Glucose POC Glucose 55 L 199 H Lactic Acid Calcium Phosphorus Magnesium Direct Bilirubin ALT Alkaline Phosphatase Troponin T C-Reactive Protein Total Protein Albumin Triglycerides Cholesterol LDL Cholesterol Direct HDL Cholesterol Urine WBC (Auto) Urine Creatinine Urine Total Protein Vancomycin Trough Rheumatoid Factor Complement C4 Miscellaneous Test Crossmatch 10/03/16 10/03/16 10/03/16 05:10 12:14 13:18 WBC RBC Hgb Hct MCV MCH MCHC RDW Plt Count Lymph % (Auto) [place] % (Auto) Lymph # [place] # Baso # Seg Neutrophils % Seg Neuts % (Manual) Lymphocytes % (Manual) Monocytes % (Manual) Eosinophils % (Manual) Basophils % (Manual) Nucleated RBC % Seg Neutrophils # Seg Neutrophils # Man Lymphocytes # (Manual) Monocytes # (Manual) Eosinophils # (Manual) PT INR Fibrinogen dRVVT Confirm Interp Factor V Activity POC ABG pH POC ABG pCO2 POC ABG pO2 Sodium 129 L Potassium 3.3 L Chloride 88.8 L Carbon Dioxide 20 L BUN 29 H Creatinine 2.8 H Glucose POC Glucose 68 L 127 H Lactic Acid Calcium 7.2 L Phosphorus Magnesium Direct Bilirubin ALT Alkaline Phosphatase Troponin T C-Reactive Protein Total Protein Albumin Triglycerides Cholesterol LDL Cholesterol Direct HDL Cholesterol Urine WBC (Auto) Urine Creatinine Urine Total Protein Vancomycin Trough Rheumatoid Factor Complement C4 Miscellaneous Test Crossmatch 10/03/16 10/03/16 10/03/16 14:42 18:21 19:09 WBC RBC Hgb Hct MCV MCH MCHC RDW Plt Count Lymph % (Auto) [place] % (Auto) Lymph # [place] # Baso # Seg Neutrophils % Seg Neuts % (Manual) Lymphocytes % (Manual) Monocytes % (Manual) Eosinophils % (Manual) Basophils % (Manual) Nucleated RBC % Seg Neutrophils # Seg Neutrophils # Man Lymphocytes # (Manual) Monocytes # (Manual) Eosinophils # (Manual) PT INR Fibrinogen dRVVT Confirm Interp Factor V Activity POC ABG pH 7.499 H POC ABG pCO2 28.4 L POC ABG pO2 44 L Sodium Potassium Chloride Carbon Dioxide BUN Creatinine Glucose POC Glucose 64 L 205 H Lactic Acid Calcium Phosphorus Magnesium Direct Bilirubin ALT Alkaline Phosphatase Troponin T C-Reactive Protein Total Protein Albumin Triglycerides Cholesterol LDL Cholesterol Direct HDL Cholesterol Urine WBC (Auto) Urine Creatinine Urine Total Protein Vancomycin Trough Rheumatoid Factor Complement C4 Miscellaneous Test Crossmatch 10/03/16 10/04/16 10/04/16 23:33 04:18 06:30 WBC RBC 2.54 L Hgb 7.1 L Hct 21.7 L MCV MCH MCHC RDW 19.5 H Plt Count 76 L Lymph % (Auto) [place] % (Auto) Lymph # [place] # Baso # Seg Neutrophils % Seg Neuts % (Manual) 88.0 H Lymphocytes % (Manual) 6.0 L Monocytes % (Manual) Eosinophils % (Manual) Basophils % (Manual) Nucleated RBC % Seg Neutrophils # Seg Neutrophils # Man 8.8 H Lymphocytes # (Manual) 0.6 L Monocytes # (Manual) Eosinophils # (Manual) PT INR Fibrinogen dRVVT Confirm Interp Factor V Activity POC ABG pH 7.461 H POC ABG pCO2 33.6 L POC ABG pO2 211 H Sodium Potassium Chloride Carbon Dioxide BUN Creatinine Glucose POC Glucose 136 H Lactic Acid Calcium Phosphorus Magnesium Direct Bilirubin ALT Alkaline Phosphatase Troponin T C-Reactive Protein Total Protein Albumin Triglycerides Cholesterol LDL Cholesterol Direct HDL Cholesterol Urine WBC (Auto) Urine Creatinine Urine Total Protein Vancomycin Trough Rheumatoid Factor Complement C4 Miscellaneous Test Crossmatch 10/04/16 10/04/16 10/04/16 06:30 11:45 17:54 WBC RBC Hgb Hct MCV MCH MCHC RDW Plt Count Lymph % (Auto) [place] % (Auto) Lymph # [place] # Baso # Seg Neutrophils % Seg Neuts % (Manual) Lymphocytes % (Manual) Monocytes % (Manual) Eosinophils % (Manual) Basophils % (Manual) Nucleated RBC % Seg Neutrophils # Seg Neutrophils # Man Lymphocytes # (Manual) Monocytes # (Manual) Eosinophils # (Manual) PT INR Fibrinogen dRVVT Confirm Interp Factor V Activity POC ABG pH POC ABG pCO2 POC ABG pO2 Sodium 128 L Potassium Chloride 87.4 L Carbon Dioxide 20 L BUN 34 H Creatinine 2.9 H Glucose 127 H POC Glucose 158 H 160 H Lactic Acid Calcium 7.4 L Phosphorus Magnesium Direct Bilirubin ALT Alkaline Phosphatase Troponin T C-Reactive Protein Total Protein Albumin Triglycerides Cholesterol LDL Cholesterol Direct HDL Cholesterol Urine WBC (Auto) Urine Creatinine Urine Total Protein Vancomycin Trough Rheumatoid Factor Complement C4 Miscellaneous Test Crossmatch 10/04/16 10/05/16 10/05/16 23:25 04:30 05:00 WBC RBC 2.64 L Hgb 7.5 L Hct 22.6 L MCV MCH MCHC RDW 19.3 H Plt Count 80 L Lymph % (Auto) [place] % (Auto) Lymph # [place] # Baso # Seg Neutrophils % Seg Neuts % (Manual) Lymphocytes % (Manual) 12.0 L Monocytes % (Manual) Eosinophils % (Manual) Basophils % (Manual) Nucleated RBC % Seg Neutrophils # Seg Neutrophils # Man Lymphocytes # (Manual) Monocytes # (Manual) Eosinophils # (Manual) PT INR Fibrinogen dRVVT Confirm Interp Factor V Activity POC ABG pH 7.475 H POC ABG pCO2 33.3 L POC ABG pO2 140 H Sodium Potassium Chloride Carbon Dioxide BUN Creatinine Glucose POC Glucose 141 H Lactic Acid Calcium Phosphorus Magnesium Direct Bilirubin ALT Alkaline Phosphatase Troponin T C-Reactive Protein Total Protein Albumin Triglycerides Cholesterol LDL Cholesterol Direct HDL Cholesterol Urine WBC (Auto) Urine Creatinine Urine Total Protein Vancomycin Trough Rheumatoid Factor Complement C4 Miscellaneous Test Crossmatch 10/05/16 10/05/16 10/05/16 05:00 05:09 12:58 WBC RBC Hgb Hct MCV MCH MCHC RDW Plt Count Lymph % (Auto) [place] % (Auto) Lymph # [place] # Baso # Seg Neutrophils % Seg Neuts % (Manual) Lymphocytes % (Manual) Monocytes % (Manual) Eosinophils % (Manual) Basophils % (Manual) Nucleated RBC % Seg Neutrophils # Seg Neutrophils # Man Lymphocytes # (Manual) Monocytes # (Manual) Eosinophils # (Manual) PT INR Fibrinogen dRVVT Confirm Interp Factor V Activity POC ABG pH POC ABG pCO2 POC ABG pO2 Sodium 131 L Potassium Chloride 94.0 L Carbon Dioxide 20 L BUN 22 H Creatinine 2.0 H Glucose 123 H POC Glucose 166 H 179 H Lactic Acid Calcium 7.7 L Phosphorus 2.20 L D Magnesium Direct Bilirubin ALT Alkaline Phosphatase Troponin T C-Reactive Protein Total Protein Albumin Triglycerides Cholesterol LDL Cholesterol Direct HDL Cholesterol Urine WBC (Auto) Urine Creatinine Urine Total Protein Vancomycin Trough Rheumatoid Factor Complement C4 Miscellaneous Test Crossmatch 10/05/16 10/05/16 10/05/16 15:50 18:53 23:12 WBC RBC Hgb Hct MCV MCH MCHC RDW Plt Count Lymph % (Auto) [place] % (Auto) Lymph # [place] # Baso # Seg Neutrophils % Seg Neuts % (Manual) Lymphocytes % (Manual) Monocytes % (Manual) Eosinophils % (Manual) Basophils % (Manual) Nucleated RBC % Seg Neutrophils # Seg Neutrophils # Man Lymphocytes # (Manual) Monocytes # (Manual) Eosinophils # (Manual) PT INR Fibrinogen dRVVT Confirm Interp Factor V Activity POC ABG pH POC ABG pCO2 POC ABG pO2 Sodium Potassium Chloride Carbon Dioxide BUN Creatinine Glucose POC Glucose 150 H 164 H Lactic Acid Calcium Phosphorus Magnesium Direct Bilirubin ALT Alkaline Phosphatase Troponin T C-Reactive Protein Total Protein Albumin Triglycerides Cholesterol LDL Cholesterol Direct HDL Cholesterol Urine WBC (Auto) Urine Creatinine Urine Total Protein Vancomycin Trough Rheumatoid Factor Complement C4 Miscellaneous Test Crossmatch See Detail 10/06/16 10/06/16 10/06/16 03:50 03:50 04:53 WBC RBC 3.00 L Hgb 8.6 L Hct 25.8 L MCV MCH MCHC RDW 17.9 H Plt Count 65 L Lymph % (Auto) [place] % (Auto) Lymph # [place] # Baso # Seg Neutrophils % Seg Neuts % (Manual) 30.0 L Lymphocytes % (Manual) 5.0 L Monocytes % (Manual) Eosinophils % (Manual) Basophils % (Manual) Nucleated RBC % Seg Neutrophils # Seg Neutrophils # Man Lymphocytes # (Manual) 0.4 L Monocytes # (Manual) Eosinophils # (Manual) PT INR Fibrinogen dRVVT Confirm Interp Factor V Activity POC ABG pH 7.310 L POC ABG pCO2 49.0 H POC ABG pO2 Sodium 133 L Potassium Chloride 95.9 L Carbon Dioxide BUN 26 H Creatinine 2.0 H Glucose 116 H POC Glucose Lactic Acid Calcium 7.8 L Phosphorus Magnesium Direct Bilirubin ALT Alkaline Phosphatase Troponin T C-Reactive Protein Total Protein Albumin Triglycerides Cholesterol LDL Cholesterol Direct HDL Cholesterol Urine WBC (Auto) Urine Creatinine Urine Total Protein Vancomycin Trough Rheumatoid Factor Complement C4 Miscellaneous Test Crossmatch 10/06/16 10/06/16 10/06/16 05:23 11:52 18:34 WBC RBC Hgb Hct MCV MCH MCHC RDW Plt Count Lymph % (Auto) [place] % (Auto) Lymph # [place] # Baso # Seg Neutrophils % Seg Neuts % (Manual) Lymphocytes % (Manual) Monocytes % (Manual) Eosinophils % (Manual) Basophils % (Manual) Nucleated RBC % Seg Neutrophils # Seg Neutrophils # Man Lymphocytes # (Manual) Monocytes # (Manual) Eosinophils # (Manual) PT INR Fibrinogen dRVVT Confirm Interp Factor V Activity POC ABG pH POC ABG pCO2 POC ABG pO2 Sodium Potassium Chloride Carbon Dioxide BUN Creatinine Glucose POC Glucose 126 H 116 H 129 H Lactic Acid Calcium Phosphorus Magnesium Direct Bilirubin ALT Alkaline Phosphatase Troponin T C-Reactive Protein Total Protein Albumin Triglycerides Cholesterol LDL Cholesterol Direct HDL Cholesterol Urine WBC (Auto) Urine Creatinine Urine Total Protein Vancomycin Trough Rheumatoid Factor Complement C4 Miscellaneous Test Crossmatch 10/07/16 10/07/16 10/07/16 03:45 05:00 10:00 WBC 17.0 H RBC 2.68 L Hgb 7.3 L Hct 25.3 L MCV MCH 27 L MCHC 29 L RDW 19.6 H Plt Count 74 L Lymph % (Auto) [place] % (Auto) Lymph # [place] # Baso # Seg Neutrophils % Seg Neuts % (Manual) Lymphocytes % (Manual) 12.0 L Monocytes % (Manual) Eosinophils % (Manual) Basophils % (Manual) Nucleated RBC % 4.0 H Seg Neutrophils # Seg Neutrophils # Man 10.7 H Lymphocytes # (Manual) Monocytes # (Manual) Eosinophils # (Manual) PT INR Fibrinogen dRVVT Confirm Interp Factor V Activity POC ABG pH POC ABG pCO2 POC ABG pO2 Sodium 130 L Potassium 3.2 L Chloride 93.9 L Carbon Dioxide 20 L BUN 44 H Creatinine 2.7 H Glucose 129 H POC Glucose Lactic Acid Calcium 7.4 L Phosphorus Magnesium Direct Bilirubin ALT 6 L Alkaline Phosphatase 195 H Troponin T C-Reactive Protein Total Protein 4.9 L Albumin 1.0 L Triglycerides Cholesterol LDL Cholesterol Direct HDL Cholesterol Urine WBC (Auto) Urine Creatinine Urine Total Protein Vancomycin Trough Rheumatoid Factor Complement C4 Miscellaneous Test Flexitest 1 H Crossmatch 10/07/16 10/07/16 10/07/16 10:00 11:24 18:10 WBC RBC Hgb Hct MCV MCH MCHC RDW Plt Count Lymph % (Auto) [place] % (Auto) Lymph # [place] # Baso # Seg Neutrophils % Seg Neuts % (Manual) Lymphocytes % (Manual) Monocytes % (Manual) Eosinophils % (Manual) Basophils % (Manual) Nucleated RBC % Seg Neutrophils # Seg Neutrophils # Man Lymphocytes # (Manual) Monocytes # (Manual) Eosinophils # (Manual) PT INR Fibrinogen dRVVT Confirm Interp Factor V Activity POC ABG pH POC ABG pCO2 POC ABG pO2 Sodium Potassium Chloride Carbon Dioxide BUN Creatinine Glucose POC Glucose 116 H 130 H Lactic Acid Calcium Phosphorus Magnesium Direct Bilirubin ALT Alkaline Phosphatase Troponin T C-Reactive Protein 19.40 H Total Protein Albumin Triglycerides Cholesterol LDL Cholesterol Direct HDL Cholesterol Urine WBC (Auto) Urine Creatinine Urine Total Protein Vancomycin Trough Rheumatoid Factor Complement C4 Miscellaneous Test Crossmatch 10/07/16 10/08/16 10/08/16 18:30 00:00 04:00 WBC RBC Hgb Hct MCV MCH MCHC RDW Plt Count Lymph % (Auto) [place] % (Auto) Lymph # [place] # Baso # Seg Neutrophils % Seg Neuts % (Manual) Lymphocytes % (Manual) Monocytes % (Manual) Eosinophils % (Manual) Basophils % (Manual) Nucleated RBC % Seg Neutrophils # Seg Neutrophils # Man Lymphocytes # (Manual) Monocytes # (Manual) Eosinophils # (Manual) PT INR Fibrinogen dRVVT Confirm Interp Factor V Activity POC ABG pH POC ABG pCO2 POC ABG pO2 Sodium 132 L Potassium 3.3 L Chloride 93.6 L Carbon Dioxide 17 L BUN 59 H Creatinine 2.7 H Glucose 121 H POC Glucose 122 H Lactic Acid Calcium 7.6 L Phosphorus Magnesium Direct Bilirubin ALT Alkaline Phosphatase Troponin T C-Reactive Protein Total Protein Albumin Triglycerides Cholesterol LDL Cholesterol Direct HDL Cholesterol Urine WBC (Auto) > 182.0 H Urine Creatinine Urine Total Protein Vancomycin Trough Rheumatoid Factor Complement C4 Miscellaneous Test Crossmatch 10/08/16 10/08/16 10/08/16 04:30 05:30 11:51 WBC RBC 5.15 H Hgb 14.4 H D Hct 44.5 H D MCV MCH MCHC RDW 19.5 H Plt Count 56 L Lymph % (Auto) [place] % (Auto) Lymph # [place] # Baso # Seg Neutrophils % Seg Neuts % (Manual) 24.0 L Lymphocytes % (Manual) 8.0 L Monocytes % (Manual) Eosinophils % (Manual) Basophils % (Manual) Nucleated RBC % 9.0 H Seg Neutrophils # Seg Neutrophils # Man Lymphocytes # (Manual) 0.7 L Monocytes # (Manual) Eosinophils # (Manual) PT INR Fibrinogen dRVVT Confirm Interp Factor V Activity POC ABG pH POC ABG pCO2 POC ABG pO2 Sodium Potassium Chloride Carbon Dioxide BUN Creatinine Glucose POC Glucose 125 H 150 H Lactic Acid Calcium Phosphorus Magnesium Direct Bilirubin ALT Alkaline Phosphatase Troponin T C-Reactive Protein Total Protein Albumin Triglycerides Cholesterol LDL Cholesterol Direct HDL Cholesterol Urine WBC (Auto) Urine Creatinine Urine Total Protein Vancomycin Trough Rheumatoid Factor Complement C4 Miscellaneous Test Crossmatch 10/08/16 10/08/16 10/08/16 12:49 17:07 19:30 WBC RBC Hgb 7.1 L D Hct 22.4 L D MCV MCH MCHC RDW Plt Count Lymph % (Auto) [place] % (Auto) Lymph # [place] # Baso # Seg Neutrophils % Seg Neuts % (Manual) Lymphocytes % (Manual) Monocytes % (Manual) Eosinophils % (Manual) Basophils % (Manual) Nucleated RBC % Seg Neutrophils # Seg Neutrophils # Man Lymphocytes # (Manual) Monocytes # (Manual) Eosinophils # (Manual) PT INR Fibrinogen dRVVT Confirm Interp Factor V Activity POC ABG pH POC ABG pCO2 28.2 L POC ABG pO2 111 H Sodium Potassium Chloride Carbon Dioxide BUN Creatinine Glucose POC Glucose 145 H Lactic Acid Calcium Phosphorus Magnesium Direct Bilirubin ALT Alkaline Phosphatase Troponin T C-Reactive Protein Total Protein Albumin Triglycerides Cholesterol LDL Cholesterol Direct HDL Cholesterol Urine WBC (Auto) Urine Creatinine Urine Total Protein Vancomycin Trough Rheumatoid Factor Complement C4 Miscellaneous Test Crossmatch 10/08/16 10/09/16 10/09/16 19:30 03:45 03:45 WBC 12.6 H RBC 2.36 L Hgb 6.7 L Hct 21.1 L MCV MCH MCHC RDW 19.5 H Plt Count 75 L Lymph % (Auto) [place] % (Auto) Lymph # [place] # Baso # Seg Neutrophils % Seg Neuts % (Manual) Lymphocytes % (Manual) Monocytes % (Manual) 10.0 H Eosinophils % (Manual) Basophils % (Manual) Nucleated RBC % 3.0 H Seg Neutrophils # Seg Neutrophils # Man Lymphocytes # (Manual) Monocytes # (Manual) 1.3 H Eosinophils # (Manual) PT 18.0 H INR 1.41 H Fibrinogen dRVVT Confirm Interp Factor V Activity POC ABG pH POC ABG pCO2 POC ABG pO2 Sodium 135 L Potassium Chloride Carbon Dioxide 17 L BUN 81 H Creatinine 3.2 H Glucose 109 H POC Glucose Lactic Acid Calcium 7.4 L Phosphorus 4.60 H D Magnesium Direct Bilirubin ALT Alkaline Phosphatase Troponin T C-Reactive Protein Total Protein Albumin Triglycerides Cholesterol LDL Cholesterol Direct HDL Cholesterol Urine WBC (Auto) Urine Creatinine Urine Total Protein Vancomycin Trough Rheumatoid Factor Complement C4 Miscellaneous Test Crossmatch 10/09/16 10/09/16 10/09/16 03:45 05:14 07:20 WBC RBC Hgb Hct MCV MCH MCHC RDW Plt Count Lymph % (Auto) [place] % (Auto) Lymph # [place] # Baso # Seg Neutrophils % Seg Neuts % (Manual) Lymphocytes % (Manual) Monocytes % (Manual) Eosinophils % (Manual) Basophils % (Manual) Nucleated RBC % Seg Neutrophils # Seg Neutrophils # Man Lymphocytes # (Manual) Monocytes # (Manual) Eosinophils # (Manual) PT 19.0 H INR 1.51 H Fibrinogen dRVVT Confirm Interp Factor V Activity POC ABG pH POC ABG pCO2 POC ABG pO2 Sodium Potassium Chloride Carbon Dioxide BUN Creatinine Glucose POC Glucose 151 H Lactic Acid Calcium Phosphorus Magnesium Direct Bilirubin ALT Alkaline Phosphatase Troponin T C-Reactive Protein Total Protein Albumin Triglycerides Cholesterol LDL Cholesterol Direct HDL Cholesterol Urine WBC (Auto) Urine Creatinine Urine Total Protein Vancomycin Trough Rheumatoid Factor Complement C4 Miscellaneous Test Crossmatch See Detail 10/09/16 10/09/16 10/09/16 11:46 16:20 16:43 WBC RBC Hgb 7.2 L Hct 22.2 L MCV MCH MCHC RDW Plt Count Lymph % (Auto) [place] % (Auto) Lymph # [place] # Baso # Seg Neutrophils % Seg Neuts % (Manual) Lymphocytes % (Manual) Monocytes % (Manual) Eosinophils % (Manual) Basophils % (Manual) Nucleated RBC % Seg Neutrophils # Seg Neutrophils # Man Lymphocytes # (Manual) Monocytes # (Manual) Eosinophils # (Manual) PT INR Fibrinogen dRVVT Confirm Interp Factor V Activity POC ABG pH POC ABG pCO2 POC ABG pO2 Sodium Potassium Chloride Carbon Dioxide BUN Creatinine Glucose POC Glucose 133 H 141 H Lactic Acid Calcium Phosphorus Magnesium Direct Bilirubin ALT Alkaline Phosphatase Troponin T C-Reactive Protein Total Protein Albumin Triglycerides Cholesterol LDL Cholesterol Direct HDL Cholesterol Urine WBC (Auto) Urine Creatinine Urine Total Protein Vancomycin Trough Rheumatoid Factor Complement C4 Miscellaneous Test Crossmatch 10/10/16 10/10/16 10/10/16 05:00 05:00 11:19 WBC 18.5 H RBC 2.19 L Hgb 6.4 L Hct 19.6 L* MCV MCH MCHC RDW 19.3 H Plt Count 93 L Lymph % (Auto) [place] % (Auto) Lymph # [place] # Baso # Seg Neutrophils % Seg Neuts % (Manual) Lymphocytes % (Manual) 10.0 L Monocytes % (Manual) Eosinophils % (Manual) Basophils % (Manual) Nucleated RBC % 4.0 H Seg Neutrophils # Seg Neutrophils # Man 11.3 H Lymphocytes # (Manual) Monocytes # (Manual) Eosinophils # (Manual) PT INR Fibrinogen dRVVT Confirm Interp Factor V Activity POC ABG pH POC ABG pCO2 POC ABG pO2 Sodium Potassium 5.7 H D Chloride Carbon Dioxide 16 L BUN 94 H Creatinine 3.1 H Glucose 131 H POC Glucose 153 H Lactic Acid Calcium 8.2 L Phosphorus 5.10 H Magnesium 2.40 H Direct Bilirubin 0.3 H ALT < 5 L Alkaline Phosphatase 319 H Troponin T C-Reactive Protein Total Protein 5.1 L Albumin 1.0 L Triglycerides Cholesterol LDL Cholesterol Direct HDL Cholesterol Urine WBC (Auto) Urine Creatinine Urine Total Protein Vancomycin Trough Rheumatoid Factor Complement C4 Miscellaneous Test Crossmatch 10/10/16 10/10/16 10/11/16 17:50 23:30 04:15 WBC RBC Hgb Hct MCV MCH MCHC RDW Plt Count Lymph % (Auto) [place] % (Auto) Lymph # [place] # Baso # Seg Neutrophils % Seg Neuts % (Manual) Lymphocytes % (Manual) Monocytes % (Manual) Eosinophils % (Manual) Basophils % (Manual) Nucleated RBC % Seg Neutrophils # Seg Neutrophils # Man Lymphocytes # (Manual) Monocytes # (Manual) Eosinophils # (Manual) PT INR Fibrinogen dRVVT Confirm Interp Factor V Activity POC ABG pH POC ABG pCO2 POC ABG pO2 Sodium Potassium Chloride 96.4 L Carbon Dioxide 21 L BUN 57 H Creatinine 2.1 H Glucose 151 H POC Glucose 146 H 141 H Lactic Acid Calcium 8.3 L Phosphorus Magnesium Direct Bilirubin ALT Alkaline Phosphatase Troponin T C-Reactive Protein Total Protein Albumin Triglycerides Cholesterol LDL Cholesterol Direct HDL Cholesterol Urine WBC (Auto) Urine Creatinine Urine Total Protein Vancomycin Trough Rheumatoid Factor Complement C4 Miscellaneous Test Crossmatch 10/11/16 10/11/16 10/11/16 04:15 04:15 05:30 WBC 28.3 H RBC 3.12 L Hgb 9.3 L Hct 28.7 L D MCV MCH MCHC RDW 17.7 H Plt Count 128 L Lymph % (Auto) [place] % (Auto) Lymph # [place] # Baso # Seg Neutrophils % Seg Neuts % (Manual) Lymphocytes % (Manual) Monocytes % (Manual) Eosinophils % (Manual) Basophils % (Manual) Nucleated RBC % Seg Neutrophils # Seg Neutrophils # Man Lymphocytes # (Manual) Monocytes # (Manual) Eosinophils # (Manual) PT INR Fibrinogen dRVVT Confirm Interp Factor V Activity POC ABG pH POC ABG pCO2 POC ABG pO2 Sodium Potassium Chloride Carbon Dioxide BUN Creatinine Glucose POC Glucose 167 H Lactic Acid Calcium Phosphorus Magnesium Direct Bilirubin ALT Alkaline Phosphatase Troponin T C-Reactive Protein 15.80 H Total Protein Albumin Triglycerides Cholesterol LDL Cholesterol Direct HDL Cholesterol Urine WBC (Auto) Urine Creatinine Urine Total Protein Vancomycin Trough Rheumatoid Factor Complement C4 Miscellaneous Test Crossmatch 10/11/16 10/11/16 10/11/16 11:40 15:49 23:57 WBC RBC Hgb Hct MCV MCH MCHC RDW Plt Count Lymph % (Auto) [place] % (Auto) Lymph # [place] # Baso # Seg Neutrophils % Seg Neuts % (Manual) Lymphocytes % (Manual) Monocytes % (Manual) Eosinophils % (Manual) Basophils % (Manual) Nucleated RBC % Seg Neutrophils # Seg Neutrophils # Man Lymphocytes # (Manual) Monocytes # (Manual) Eosinophils # (Manual) PT INR Fibrinogen dRVVT Confirm Interp Factor V Activity POC ABG pH POC ABG pCO2 POC ABG pO2 Sodium Potassium Chloride Carbon Dioxide BUN Creatinine Glucose POC Glucose 139 H 168 H 161 H Lactic Acid Calcium Phosphorus Magnesium Direct Bilirubin ALT Alkaline Phosphatase Troponin T C-Reactive Protein Total Protein Albumin Triglycerides Cholesterol LDL Cholesterol Direct HDL Cholesterol Urine WBC (Auto) Urine Creatinine Urine Total Protein Vancomycin Trough Rheumatoid Factor Complement C4 Miscellaneous Test Crossmatch 10/12/16 10/12/16 10/12/16 04:40 04:40 05:44 WBC 22.5 H RBC 2.88 L Hgb 8.8 L Hct 26.8 L MCV MCH MCHC RDW 17.8 H Plt Count Lymph % (Auto) [place] % (Auto) Lymph # [place] # Baso # Seg Neutrophils % Seg Neuts % (Manual) Lymphocytes % (Manual) Monocytes % (Manual) Eosinophils % (Manual) Basophils % (Manual) Nucleated RBC % Seg Neutrophils # Seg Neutrophils # Man Lymphocytes # (Manual) Monocytes # (Manual) Eosinophils # (Manual) PT INR Fibrinogen dRVVT Confirm Interp Factor V Activity POC ABG pH POC ABG pCO2 POC ABG pO2 Sodium 134 L Potassium Chloride 93.0 L Carbon Dioxide BUN 74 H Creatinine 2.5 H Glucose 137 H POC Glucose 158 H Lactic Acid Calcium 8.2 L Phosphorus Magnesium Direct Bilirubin ALT Alkaline Phosphatase Troponin T C-Reactive Protein Total Protein Albumin Triglycerides Cholesterol LDL Cholesterol Direct HDL Cholesterol Urine WBC (Auto) Urine Creatinine Urine Total Protein Vancomycin Trough Rheumatoid Factor Complement C4 Miscellaneous Test Crossmatch 10/12/16 10/12/16 10/12/16 12:27 18:18 23:46 WBC RBC Hgb Hct MCV MCH MCHC RDW Plt Count Lymph % (Auto) [place] % (Auto) Lymph # [place] # Baso # Seg Neutrophils % Seg Neuts % (Manual) Lymphocytes % (Manual) Monocytes % (Manual) Eosinophils % (Manual) Basophils % (Manual) Nucleated RBC % Seg Neutrophils # Seg Neutrophils # Man Lymphocytes # (Manual) Monocytes # (Manual) Eosinophils # (Manual) PT INR Fibrinogen dRVVT Confirm Interp Factor V Activity POC ABG pH POC ABG pCO2 POC ABG pO2 Sodium Potassium Chloride Carbon Dioxide BUN Creatinine Glucose POC Glucose 153 H 140 H 150 H Lactic Acid Calcium Phosphorus Magnesium Direct Bilirubin ALT Alkaline Phosphatase Troponin T C-Reactive Protein Total Protein Albumin Triglycerides Cholesterol LDL Cholesterol Direct HDL Cholesterol Urine WBC (Auto) Urine Creatinine Urine Total Protein Vancomycin Trough Rheumatoid Factor Complement C4 Miscellaneous Test Crossmatch 10/13/16 10/13/16 10/13/16 06:22 09:20 12:29 WBC RBC Hgb Hct MCV MCH MCHC RDW Plt Count Lymph % (Auto) [place] % (Auto) Lymph # [place] # Baso # Seg Neutrophils % Seg Neuts % (Manual) Lymphocytes % (Manual) Monocytes % (Manual) Eosinophils % (Manual) Basophils % (Manual) Nucleated RBC % Seg Neutrophils # Seg Neutrophils # Man Lymphocytes # (Manual) Monocytes # (Manual) Eosinophils # (Manual) PT INR Fibrinogen dRVVT Confirm Interp Factor V Activity POC ABG pH POC ABG pCO2 POC ABG pO2 Sodium Potassium Chloride Carbon Dioxide BUN Creatinine Glucose POC Glucose 165 H 193 H Lactic Acid Calcium Phosphorus Magnesium Direct Bilirubin ALT Alkaline Phosphatase Troponin T C-Reactive Protein Total Protein Albumin Triglycerides Cholesterol LDL Cholesterol Direct HDL Cholesterol Urine WBC (Auto) Urine Creatinine Urine Total Protein Vancomycin Trough Rheumatoid Factor Complement C4 Miscellaneous Test Flexitest 1 H Crossmatch 10/13/16 10/13/16 10/13/16 18:09 Unknown Unknown WBC 23.4 H RBC 2.83 L Hgb 8.7 L Hct 26.1 L MCV MCH MCHC RDW 18.1 H Plt Count Lymph % (Auto) [place] % (Auto) Lymph # [place] # Baso # Seg Neutrophils % Seg Neuts % (Manual) Lymphocytes % (Manual) Monocytes % (Manual) Eosinophils % (Manual) Basophils % (Manual) Nucleated RBC % Seg Neutrophils # Seg Neutrophils # Man Lymphocytes # (Manual) Monocytes # (Manual) Eosinophils # (Manual) PT INR Fibrinogen dRVVT Confirm Interp Factor V Activity POC ABG pH POC ABG pCO2 POC ABG pO2 Sodium Potassium Chloride 95.8 L Carbon Dioxide BUN 82 H Creatinine 2.6 H Glucose 152 H POC Glucose 166 H Lactic Acid Calcium Phosphorus Magnesium Direct Bilirubin ALT Alkaline Phosphatase Troponin T C-Reactive Protein Total Protein Albumin Triglycerides Cholesterol LDL Cholesterol Direct HDL Cholesterol Urine WBC (Auto) Urine Creatinine Urine Total Protein Vancomycin Trough Rheumatoid Factor Complement C4 Miscellaneous Test Crossmatch 10/14/16 10/14/16 10/14/16 05:38 06:35 08:10 WBC 20.7 H RBC 2.81 L Hgb 8.4 L Hct 27.2 L MCV MCH MCHC RDW 19.4 H Plt Count Lymph % (Auto) [place] % (Auto) Lymph # [place] # Baso # Seg Neutrophils % Seg Neuts % (Manual) Lymphocytes % (Manual) Monocytes % (Manual) Eosinophils % (Manual) Basophils % (Manual) Nucleated RBC % Seg Neutrophils # Seg Neutrophils # Man Lymphocytes # (Manual) Monocytes # (Manual) Eosinophils # (Manual) PT INR Fibrinogen dRVVT Confirm Interp Factor V Activity POC ABG pH POC ABG pCO2 POC ABG pO2 Sodium Potassium Chloride Carbon Dioxide BUN 58 H Creatinine 1.9 H Glucose 169 H POC Glucose 195 H Lactic Acid Calcium Phosphorus Magnesium Direct Bilirubin ALT Alkaline Phosphatase Troponin T C-Reactive Protein Total Protein Albumin Triglycerides Cholesterol LDL Cholesterol Direct HDL Cholesterol Urine WBC (Auto) Urine Creatinine Urine Total Protein Vancomycin Trough Rheumatoid Factor Complement C4 Miscellaneous Test Crossmatch 10/14/16 10/14/16 10/14/16 11:44 17:13 23:28 WBC RBC Hgb Hct MCV MCH MCHC RDW Plt Count Lymph % (Auto) [place] % (Auto) Lymph # [place] # Baso # Seg Neutrophils % Seg Neuts % (Manual) Lymphocytes % (Manual) Monocytes % (Manual) Eosinophils % (Manual) Basophils % (Manual) Nucleated RBC % Seg Neutrophils # Seg Neutrophils # Man Lymphocytes # (Manual) Monocytes # (Manual) Eosinophils # (Manual) PT INR Fibrinogen dRVVT Confirm Interp Factor V Activity POC ABG pH POC ABG pCO2 POC ABG pO2 Sodium Potassium Chloride Carbon Dioxide BUN Creatinine Glucose POC Glucose 174 H 121 H 151 H Lactic Acid Calcium Phosphorus Magnesium Direct Bilirubin ALT Alkaline Phosphatase Troponin T C-Reactive Protein Total Protein Albumin Triglycerides Cholesterol LDL Cholesterol Direct HDL Cholesterol Urine WBC (Auto) Urine Creatinine Urine Total Protein Vancomycin Trough Rheumatoid Factor Complement C4 Miscellaneous Test Crossmatch 10/15/16 10/15/16 10/15/16 05:06 12:26 17:48 WBC RBC Hgb Hct MCV MCH MCHC RDW Plt Count Lymph % (Auto) [place] % (Auto) Lymph # [place] # Baso # Seg Neutrophils % Seg Neuts % (Manual) Lymphocytes % (Manual) Monocytes % (Manual) Eosinophils % (Manual) Basophils % (Manual) Nucleated RBC % Seg Neutrophils # Seg Neutrophils # Man Lymphocytes # (Manual) Monocytes # (Manual) Eosinophils # (Manual) PT INR Fibrinogen dRVVT Confirm Interp Factor V Activity POC ABG pH POC ABG pCO2 POC ABG pO2 Sodium Potassium Chloride Carbon Dioxide BUN Creatinine Glucose POC Glucose 151 H 149 H 153 H Lactic Acid Calcium Phosphorus Magnesium Direct Bilirubin ALT Alkaline Phosphatase Troponin T C-Reactive Protein Total Protein Albumin Triglycerides Cholesterol LDL Cholesterol Direct HDL Cholesterol Urine WBC (Auto) Urine Creatinine Urine Total Protein Vancomycin Trough Rheumatoid Factor Complement C4 Miscellaneous Test Crossmatch 10/15/16 10/15/16 10/16/16 Unknown Unknown 00:02 WBC 23.4 H RBC 2.78 L Hgb 8.5 L Hct 25.7 L MCV MCH MCHC RDW 18.7 H Plt Count Lymph % (Auto) [place] % (Auto) Lymph # [place] # Baso # Seg Neutrophils % Seg Neuts % (Manual) Lymphocytes % (Manual) Monocytes % (Manual) Eosinophils % (Manual) Basophils % (Manual) Nucleated RBC % Seg Neutrophils # Seg Neutrophils # Man Lymphocytes # (Manual) Monocytes # (Manual) Eosinophils # (Manual) PT INR Fibrinogen dRVVT Confirm Interp Factor V Activity POC ABG pH POC ABG pCO2 POC ABG pO2 Sodium Potassium Chloride Carbon Dioxide BUN 73 H Creatinine 2.3 H Glucose 120 H POC Glucose 137 H Lactic Acid Calcium Phosphorus Magnesium Direct Bilirubin ALT Alkaline Phosphatase Troponin T C-Reactive Protein Total Protein Albumin Triglycerides Cholesterol LDL Cholesterol Direct HDL Cholesterol Urine WBC (Auto) Urine Creatinine Urine Total Protein Vancomycin Trough Rheumatoid Factor Complement C4 Miscellaneous Test Crossmatch 10/16/16 10/16/16 10/16/16 05:44 06:25 06:25 WBC 22.5 H RBC 2.76 L Hgb 8.3 L Hct 25.2 L MCV MCH MCHC RDW 18.3 H Plt Count Lymph % (Auto) [place] % (Auto) Lymph # [place] # Baso # Seg Neutrophils % Seg Neuts % (Manual) Lymphocytes % (Manual) Monocytes % (Manual) Eosinophils % (Manual) Basophils % (Manual) Nucleated RBC % Seg Neutrophils # Seg Neutrophils # Man Lymphocytes # (Manual) Monocytes # (Manual) Eosinophils # (Manual) PT INR Fibrinogen dRVVT Confirm Interp Factor V Activity POC ABG pH POC ABG pCO2 POC ABG pO2 Sodium Potassium Chloride Carbon Dioxide BUN 92 H Creatinine 3.0 H Glucose 138 H POC Glucose 110 H Lactic Acid Calcium Phosphorus Magnesium Direct Bilirubin ALT Alkaline Phosphatase Troponin T C-Reactive Protein Total Protein Albumin Triglycerides Cholesterol LDL Cholesterol Direct HDL Cholesterol Urine WBC (Auto) Urine Creatinine Urine Total Protein Vancomycin Trough Rheumatoid Factor Complement C4 Miscellaneous Test Crossmatch 10/16/16 10/16/16 10/16/16 11:27 11:48 17:36 WBC RBC Hgb Hct MCV MCH MCHC RDW Plt Count Lymph % (Auto) [place] % (Auto) Lymph # [place] # Baso # Seg Neutrophils % Seg Neuts % (Manual) Lymphocytes % (Manual) Monocytes % (Manual) Eosinophils % (Manual) Basophils % (Manual) Nucleated RBC % Seg Neutrophils # Seg Neutrophils # Man Lymphocytes # (Manual) Monocytes # (Manual) Eosinophils # (Manual) PT INR Fibrinogen dRVVT Confirm Interp Factor V Activity POC ABG pH 7.582 H POC ABG pCO2 27.4 L POC ABG pO2 110 H Sodium Potassium Chloride Carbon Dioxide BUN Creatinine Glucose POC Glucose 121 H 133 H Lactic Acid Calcium Phosphorus Magnesium Direct Bilirubin ALT Alkaline Phosphatase Troponin T C-Reactive Protein Total Protein Albumin Triglycerides Cholesterol LDL Cholesterol Direct HDL Cholesterol Urine WBC (Auto) Urine Creatinine Urine Total Protein Vancomycin Trough Rheumatoid Factor Complement C4 Miscellaneous Test Crossmatch 10/16/16 10/17/16 10/17/16 20:48 04:24 04:24 WBC 21.4 H RBC 2.72 L Hgb 8.0 L Hct 25.2 L MCV MCH MCHC RDW 18.0 H Plt Count Lymph % (Auto) [place] % (Auto) Lymph # [place] # Baso # Seg Neutrophils % Seg Neuts % (Manual) Lymphocytes % (Manual) Monocytes % (Manual) Eosinophils % (Manual) Basophils % (Manual) Nucleated RBC % Seg Neutrophils # Seg Neutrophils # Man Lymphocytes # (Manual) Monocytes # (Manual) Eosinophils # (Manual) PT INR Fibrinogen dRVVT Confirm Interp Factor V Activity POC ABG pH 7.561 H POC ABG pCO2 24.4 L POC ABG pO2 77 L Sodium 148 H Potassium Chloride Carbon Dioxide BUN 104 H Creatinine 3.0 H Glucose 149 H POC Glucose Lactic Acid Calcium Phosphorus Magnesium Direct Bilirubin ALT Alkaline Phosphatase 138 H Troponin T C-Reactive Protein Total Protein 6.2 L Albumin 1.5 L Triglycerides Cholesterol LDL Cholesterol Direct HDL Cholesterol Urine WBC (Auto) Urine Creatinine Urine Total Protein Vancomycin Trough Rheumatoid Factor Complement C4 Miscellaneous Test Crossmatch 10/17/16 10/17/16 10/17/16 06:02 12:17 17:14 WBC RBC Hgb Hct MCV MCH MCHC RDW Plt Count Lymph % (Auto) [place] % (Auto) Lymph # [place] # Baso # Seg Neutrophils % Seg Neuts % (Manual) Lymphocytes % (Manual) Monocytes % (Manual) Eosinophils % (Manual) Basophils % (Manual) Nucleated RBC % Seg Neutrophils # Seg Neutrophils # Man Lymphocytes # (Manual) Monocytes # (Manual) Eosinophils # (Manual) PT INR Fibrinogen dRVVT Confirm Interp Factor V Activity POC ABG pH POC ABG pCO2 POC ABG pO2 Sodium Potassium Chloride Carbon Dioxide BUN Creatinine Glucose POC Glucose 170 H 167 H 126 H Lactic Acid Calcium Phosphorus Magnesium Direct Bilirubin ALT Alkaline Phosphatase Troponin T C-Reactive Protein Total Protein Albumin Triglycerides Cholesterol LDL Cholesterol Direct HDL Cholesterol Urine WBC (Auto) Urine Creatinine Urine Total Protein Vancomycin Trough Rheumatoid Factor Complement C4 Miscellaneous Test Crossmatch 10/17/16 10/18/16 10/18/16 23:17 04:00 04:00 WBC 20.7 H RBC 2.47 L Hgb 7.4 L Hct 22.9 L MCV MCH MCHC RDW 17.5 H Plt Count Lymph % (Auto) [place] % (Auto) Lymph # [place] # Baso # Seg Neutrophils % Seg Neuts % (Manual) Lymphocytes % (Manual) Monocytes % (Manual) Eosinophils % (Manual) Basophils % (Manual) Nucleated RBC % Seg Neutrophils # Seg Neutrophils # Man Lymphocytes # (Manual) Monocytes # (Manual) Eosinophils # (Manual) PT INR Fibrinogen dRVVT Confirm Interp Factor V Activity POC ABG pH POC ABG pCO2 POC ABG pO2 Sodium 149 H Potassium Chloride 107.9 H Carbon Dioxide 20 L BUN 117 H Creatinine 3.2 H Glucose 119 H POC Glucose 121 H Lactic Acid Calcium Phosphorus Magnesium Direct Bilirubin ALT Alkaline Phosphatase Troponin T C-Reactive Protein Total Protein Albumin Triglycerides Cholesterol LDL Cholesterol Direct HDL Cholesterol Urine WBC (Auto) Urine Creatinine Urine Total Protein Vancomycin Trough Rheumatoid Factor Complement C4 Miscellaneous Test Crossmatch 10/18/16 10/18/16 10/18/16 05:23 10:46 17:30 WBC RBC Hgb Hct MCV MCH MCHC RDW Plt Count Lymph % (Auto) [place] % (Auto) Lymph # [place] # Baso # Seg Neutrophils % Seg Neuts % (Manual) Lymphocytes % (Manual) Monocytes % (Manual) Eosinophils % (Manual) Basophils % (Manual) Nucleated RBC % Seg Neutrophils # Seg Neutrophils # Man Lymphocytes # (Manual) Monocytes # (Manual) Eosinophils # (Manual) PT INR Fibrinogen dRVVT Confirm Interp Factor V Activity POC ABG pH POC ABG pCO2 POC ABG pO2 Sodium Potassium Chloride Carbon Dioxide BUN Creatinine Glucose POC Glucose 119 H 155 H 124 H Lactic Acid Calcium Phosphorus Magnesium Direct Bilirubin ALT Alkaline Phosphatase Troponin T C-Reactive Protein Total Protein Albumin Triglycerides Cholesterol LDL Cholesterol Direct HDL Cholesterol Urine WBC (Auto) Urine Creatinine Urine Total Protein Vancomycin Trough Rheumatoid Factor Complement C4 Miscellaneous Test Crossmatch 10/19/16 10/19/16 10/19/16 04:00 04:00 05:25 WBC 17.4 H RBC 2.54 L Hgb 7.7 L Hct 23.6 L MCV MCH MCHC RDW 17.3 H Plt Count Lymph % (Auto) [place] % (Auto) Lymph # [place] # Baso # Seg Neutrophils % Seg Neuts % (Manual) Lymphocytes % (Manual) Monocytes % (Manual) Eosinophils % (Manual) Basophils % (Manual) Nucleated RBC % Seg Neutrophils # Seg Neutrophils # Man Lymphocytes # (Manual) Monocytes # (Manual) Eosinophils # (Manual) PT INR Fibrinogen dRVVT Confirm Interp Factor V Activity POC ABG pH POC ABG pCO2 POC ABG pO2 Sodium Potassium Chloride Carbon Dioxide BUN 72 H Creatinine 2.1 H Glucose 116 H POC Glucose 119 H Lactic Acid Calcium Phosphorus Magnesium Direct Bilirubin ALT Alkaline Phosphatase Troponin T C-Reactive Protein Total Protein Albumin Triglycerides Cholesterol LDL Cholesterol Direct HDL Cholesterol Urine WBC (Auto) Urine Creatinine Urine Total Protein Vancomycin Trough Rheumatoid Factor Complement C4 Miscellaneous Test Crossmatch 10/19/16 10/19/16 10/20/16 11:46 23:59 06:00 WBC RBC Hgb Hct MCV MCH MCHC RDW Plt Count Lymph % (Auto) [place] % (Auto) Lymph # [place] # Baso # Seg Neutrophils % Seg Neuts % (Manual) Lymphocytes % (Manual) Monocytes % (Manual) Eosinophils % (Manual) Basophils % (Manual) Nucleated RBC % Seg Neutrophils # Seg Neutrophils # Man Lymphocytes # (Manual) Monocytes # (Manual) Eosinophils # (Manual) PT INR Fibrinogen dRVVT Confirm Interp Factor V Activity POC ABG pH POC ABG pCO2 POC ABG pO2 Sodium Potassium Chloride Carbon Dioxide 17 L BUN 94 H Creatinine 2.7 H Glucose POC Glucose 116 H 117 H Lactic Acid Calcium Phosphorus Magnesium Direct Bilirubin ALT Alkaline Phosphatase Troponin T C-Reactive Protein Total Protein Albumin Triglycerides Cholesterol LDL Cholesterol Direct HDL Cholesterol Urine WBC (Auto) Urine Creatinine Urine Total Protein Vancomycin Trough Rheumatoid Factor Complement C4 Miscellaneous Test Crossmatch 10/20/16 10/20/16 10/20/16 06:00 11:49 16:00 WBC 19.7 H RBC 2.51 L Hgb 7.7 L Hct 23.5 L MCV MCH MCHC RDW 17.5 H Plt Count Lymph % (Auto) [place] % (Auto) Lymph # [place] # Baso # Seg Neutrophils % Seg Neuts % (Manual) Lymphocytes % (Manual) Monocytes % (Manual) Eosinophils % (Manual) Basophils % (Manual) Nucleated RBC % Seg Neutrophils # Seg Neutrophils # Man Lymphocytes # (Manual) Monocytes # (Manual) Eosinophils # (Manual) PT INR Fibrinogen dRVVT Confirm Interp Factor V Activity POC ABG pH POC ABG pCO2 POC ABG pO2 Sodium Potassium Chloride Carbon Dioxide BUN Creatinine Glucose POC Glucose 117 H Lactic Acid Calcium Phosphorus Magnesium Direct Bilirubin ALT Alkaline Phosphatase Troponin T C-Reactive Protein Total Protein Albumin Triglycerides Cholesterol LDL Cholesterol Direct HDL Cholesterol Urine WBC (Auto) Urine Creatinine Urine Total Protein Vancomycin Trough Rheumatoid Factor Complement C4 Miscellaneous Test Flexitest 1 H Crossmatch 10/20/16 10/20/16 10/21/16 18:36 23:39 04:00 WBC RBC Hgb Hct MCV MCH MCHC RDW Plt Count Lymph % (Auto) [place] % (Auto) Lymph # [place] # Baso # Seg Neutrophils % Seg Neuts % (Manual) Lymphocytes % (Manual) Monocytes % (Manual) Eosinophils % (Manual) Basophils % (Manual) Nucleated RBC % Seg Neutrophils # Seg Neutrophils # Man Lymphocytes # (Manual) Monocytes # (Manual) Eosinophils # (Manual) PT INR Fibrinogen dRVVT Confirm Interp Factor V Activity POC ABG pH POC ABG pCO2 POC ABG pO2 Sodium Potassium 5.4 H D Chloride Carbon Dioxide 15 L BUN 110 H Creatinine 3.0 H Glucose POC Glucose 127 H 114 H Lactic Acid Calcium Phosphorus Magnesium Direct Bilirubin ALT Alkaline Phosphatase Troponin T C-Reactive Protein Total Protein Albumin Triglycerides Cholesterol LDL Cholesterol Direct HDL Cholesterol Urine WBC (Auto) Urine Creatinine Urine Total Protein Vancomycin Trough Rheumatoid Factor Complement C4 Miscellaneous Test Crossmatch 10/21/16 10/21/16 10/22/16 05:54 23:46 05:18 WBC RBC Hgb Hct MCV MCH MCHC RDW Plt Count Lymph % (Auto) [place] % (Auto) Lymph # [place] # Baso # Seg Neutrophils % Seg Neuts % (Manual) Lymphocytes % (Manual) Monocytes % (Manual) Eosinophils % (Manual) Basophils % (Manual) Nucleated RBC % Seg Neutrophils # Seg Neutrophils # Man Lymphocytes # (Manual) Monocytes # (Manual) Eosinophils # (Manual) PT INR Fibrinogen dRVVT Confirm Interp Factor V Activity POC ABG pH POC ABG pCO2 POC ABG pO2 Sodium Potassium Chloride Carbon Dioxide BUN Creatinine Glucose POC Glucose 119 H 108 H 109 H Lactic Acid Calcium Phosphorus Magnesium Direct Bilirubin ALT Alkaline Phosphatase Troponin T C-Reactive Protein Total Protein Albumin Triglycerides Cholesterol LDL Cholesterol Direct HDL Cholesterol Urine WBC (Auto) Urine Creatinine Urine Total Protein Vancomycin Trough Rheumatoid Factor Complement C4 Miscellaneous Test Crossmatch 10/22/16 10/22/16 10/22/16 06:40 06:40 06:40 WBC 14.0 H RBC 2.03 L Hgb 7.0 L Hct 20.5 L MCV 98 H MCH 34 H MCHC 35 H RDW 17.8 H Plt Count Lymph % (Auto) [place] % (Auto) 9.9 H Lymph # [place] # 1.4 H Baso # 0.2 H Seg Neutrophils % 72.0 H Seg Neuts % (Manual) Lymphocytes % (Manual) Monocytes % (Manual) Eosinophils % (Manual) Basophils % (Manual) Nucleated RBC % Seg Neutrophils # 10.0 H Seg Neutrophils # Man Lymphocytes # (Manual) Monocytes # (Manual) Eosinophils # (Manual) PT INR Fibrinogen dRVVT Confirm Interp Factor V Activity POC ABG pH POC ABG pCO2 POC ABG pO2 Sodium 130 L D Potassium Chloride 92.4 L Carbon Dioxide 20 L BUN 50 H Creatinine 1.6 H Glucose 589 H* POC Glucose Lactic Acid Calcium 7.8 L D Phosphorus Magnesium 1.60 L Direct Bilirubin ALT Alkaline Phosphatase Troponin T C-Reactive Protein Total Protein Albumin Triglycerides Cholesterol LDL Cholesterol Direct HDL Cholesterol Urine WBC (Auto) Urine Creatinine Urine Total Protein Vancomycin Trough Rheumatoid Factor Complement C4 Miscellaneous Test Crossmatch 10/22/16 10/22/16 10/22/16 11:39 16:44 23:36 WBC RBC Hgb Hct MCV MCH MCHC RDW Plt Count Lymph % (Auto) [place] % (Auto) Lymph # [place] # Baso # Seg Neutrophils % Seg Neuts % (Manual) Lymphocytes % (Manual) Monocytes % (Manual) Eosinophils % (Manual) Basophils % (Manual) Nucleated RBC % Seg Neutrophils # Seg Neutrophils # Man Lymphocytes # (Manual) Monocytes # (Manual) Eosinophils # (Manual) PT INR Fibrinogen dRVVT Confirm Interp Factor V Activity POC ABG pH POC ABG pCO2 POC ABG pO2 Sodium Potassium Chloride Carbon Dioxide BUN Creatinine Glucose POC Glucose 142 H 163 H 123 H Lactic Acid Calcium Phosphorus Magnesium Direct Bilirubin ALT Alkaline Phosphatase Troponin T C-Reactive Protein Total Protein Albumin Triglycerides Cholesterol LDL Cholesterol Direct HDL Cholesterol Urine WBC (Auto) Urine Creatinine Urine Total Protein Vancomycin Trough Rheumatoid Factor Complement C4 Miscellaneous Test Crossmatch 10/23/16 10/23/16 10/23/16 04:58 06:00 12:12 WBC RBC Hgb Hct MCV MCH MCHC RDW Plt Count Lymph % (Auto) [place] % (Auto) Lymph # [place] # Baso # Seg Neutrophils % Seg Neuts % (Manual) Lymphocytes % (Manual) Monocytes % (Manual) Eosinophils % (Manual) Basophils % (Manual) Nucleated RBC % Seg Neutrophils # Seg Neutrophils # Man Lymphocytes # (Manual) Monocytes # (Manual) Eosinophils # (Manual) PT INR Fibrinogen dRVVT Confirm Interp Factor V Activity POC ABG pH POC ABG pCO2 POC ABG pO2 Sodium 133 L Potassium 3.5 L Chloride 96.1 L Carbon Dioxide 18 L BUN 76 H Creatinine 2.1 H Glucose POC Glucose 133 H 138 H Lactic Acid Calcium 8.3 L Phosphorus Magnesium Direct Bilirubin ALT Alkaline Phosphatase Troponin T C-Reactive Protein Total Protein Albumin Triglycerides Cholesterol LDL Cholesterol Direct HDL Cholesterol Urine WBC (Auto) Urine Creatinine Urine Total Protein Vancomycin Trough Rheumatoid Factor Complement C4 Miscellaneous Test Crossmatch 10/23/16 10/23/16 10/24/16 16:53 23:37 04:00 WBC RBC Hgb Hct MCV MCH MCHC RDW Plt Count Lymph % (Auto) [place] % (Auto) Lymph # [place] # Baso # Seg Neutrophils % Seg Neuts % (Manual) Lymphocytes % (Manual) Monocytes % (Manual) Eosinophils % (Manual) Basophils % (Manual) Nucleated RBC % Seg Neutrophils # Seg Neutrophils # Man Lymphocytes # (Manual) Monocytes # (Manual) Eosinophils # (Manual) PT INR Fibrinogen dRVVT Confirm Interp Factor V Activity POC ABG pH POC ABG pCO2 POC ABG pO2 Sodium 131 L Potassium Chloride 94.5 L Carbon Dioxide 19 L BUN 97 H Creatinine 2.6 H Glucose 110 H POC Glucose 125 H 123 H Lactic Acid Calcium 8.3 L Phosphorus Magnesium Direct Bilirubin ALT Alkaline Phosphatase Troponin T C-Reactive Protein Total Protein Albumin Triglycerides Cholesterol LDL Cholesterol Direct HDL Cholesterol Urine WBC (Auto) Urine Creatinine Urine Total Protein Vancomycin Trough Rheumatoid Factor Complement C4 Miscellaneous Test Crossmatch 10/24/16 10/24/16 10/24/16 07:49 11:39 17:52 WBC RBC Hgb 6.0 L Hct 19.7 L* MCV MCH MCHC RDW Plt Count Lymph % (Auto) [place] % (Auto) Lymph # [place] # Baso # Seg Neutrophils % Seg Neuts % (Manual) Lymphocytes % (Manual) Monocytes % (Manual) Eosinophils % (Manual) Basophils % (Manual) Nucleated RBC % Seg Neutrophils # Seg Neutrophils # Man Lymphocytes # (Manual) Monocytes # (Manual) Eosinophils # (Manual) PT INR Fibrinogen dRVVT Confirm Interp Factor V Activity POC ABG pH POC ABG pCO2 POC ABG pO2 Sodium Potassium Chloride Carbon Dioxide BUN Creatinine Glucose POC Glucose 106 H 158 H Lactic Acid Calcium Phosphorus Magnesium Direct Bilirubin ALT Alkaline Phosphatase Troponin T C-Reactive Protein Total Protein Albumin Triglycerides Cholesterol LDL Cholesterol Direct HDL Cholesterol Urine WBC (Auto) Urine Creatinine Urine Total Protein Vancomycin Trough Rheumatoid Factor Complement C4 Miscellaneous Test Crossmatch 10/24/16 10/24/16 10/24/16 20:00 22:27 Unknown WBC RBC Hgb 9.4 L D Hct 27.5 L D MCV MCH MCHC RDW Plt Count Lymph % (Auto) [place] % (Auto) Lymph # [place] # Baso # Seg Neutrophils % Seg Neuts % (Manual) Lymphocytes % (Manual) Monocytes % (Manual) Eosinophils % (Manual) Basophils % (Manual) Nucleated RBC % Seg Neutrophils # Seg Neutrophils # Man Lymphocytes # (Manual) Monocytes # (Manual) Eosinophils # (Manual) PT INR Fibrinogen dRVVT Confirm Interp Factor V Activity POC ABG pH POC ABG pCO2 POC ABG pO2 Sodium Potassium Chloride Carbon Dioxide BUN Creatinine Glucose POC Glucose 125 H Lactic Acid Calcium Phosphorus Magnesium Direct Bilirubin ALT Alkaline Phosphatase Troponin T C-Reactive Protein Total Protein Albumin Triglycerides Cholesterol LDL Cholesterol Direct HDL Cholesterol Urine WBC (Auto) Urine Creatinine Urine Total Protein Vancomycin Trough Rheumatoid Factor Complement C4 Miscellaneous Test Crossmatch See Detail 10/25/16 10/25/16 10/25/16 04:00 04:00 04:00 WBC 14.2 H RBC 2.98 L Hgb 9.0 L Hct 26.2 L MCV MCH MCHC RDW 16.6 H Plt Count Lymph % (Auto) [place] % (Auto) 10.7 H Lymph # [place] # 1.5 H Baso # Seg Neutrophils % 73.6 H Seg Neuts % (Manual) Lymphocytes % (Manual) Monocytes % (Manual) Eosinophils % (Manual) Basophils % (Manual) Nucleated RBC % Seg Neutrophils # 10.5 H Seg Neutrophils # Man Lymphocytes # (Manual) Monocytes # (Manual) Eosinophils # (Manual) PT INR Fibrinogen dRVVT Confirm Interp Factor V Activity POC ABG pH POC ABG pCO2 POC ABG pO2 Sodium 132 L Potassium Chloride 94.7 L Carbon Dioxide BUN 51 H Creatinine 1.6 H Glucose 130 H POC Glucose Lactic Acid Calcium 8.3 L Phosphorus 1.60 L D Magnesium Direct Bilirubin ALT Alkaline Phosphatase Troponin T C-Reactive Protein Total Protein Albumin Triglycerides Cholesterol LDL Cholesterol Direct HDL Cholesterol Urine WBC (Auto) Urine Creatinine Urine Total Protein Vancomycin Trough Rheumatoid Factor Complement C4 Miscellaneous Test Crossmatch 10/25/16 10/25/16 10/25/16 04:32 11:48 17:22 WBC RBC Hgb Hct MCV MCH MCHC RDW Plt Count Lymph % (Auto) [place] % (Auto) Lymph # [place] # Baso # Seg Neutrophils % Seg Neuts % (Manual) Lymphocytes % (Manual) Monocytes % (Manual) Eosinophils % (Manual) Basophils % (Manual) Nucleated RBC % Seg Neutrophils # Seg Neutrophils # Man Lymphocytes # (Manual) Monocytes # (Manual) Eosinophils # (Manual) PT INR Fibrinogen dRVVT Confirm Interp Factor V Activity POC ABG pH POC ABG pCO2 POC ABG pO2 Sodium Potassium Chloride Carbon Dioxide BUN Creatinine Glucose POC Glucose 124 H 171 H 120 H Lactic Acid Calcium Phosphorus Magnesium Direct Bilirubin ALT Alkaline Phosphatase Troponin T C-Reactive Protein Total Protein Albumin Triglycerides Cholesterol LDL Cholesterol Direct HDL Cholesterol Urine WBC (Auto) Urine Creatinine Urine Total Protein Vancomycin Trough Rheumatoid Factor Complement C4 Miscellaneous Test Crossmatch 10/26/16 10/26/16 10/26/16 04:54 07:06 07:06 WBC 16.9 H RBC 3.06 L Hgb 9.1 L Hct 26.9 L MCV MCH MCHC RDW 16.9 H Plt Count Lymph % (Auto) [place] % (Auto) Lymph # [place] # Baso # Seg Neutrophils % Seg Neuts % (Manual) 71.0 H Lymphocytes % (Manual) 5.0 L Monocytes % (Manual) 12.0 H Eosinophils % (Manual) Basophils % (Manual) Nucleated RBC % Seg Neutrophils # Seg Neutrophils # Man 12.0 H Lymphocytes # (Manual) 0.8 L Monocytes # (Manual) 2.0 H Eosinophils # (Manual) PT INR Fibrinogen dRVVT Confirm Interp Factor V Activity POC ABG pH POC ABG pCO2 POC ABG pO2 Sodium 135 L Potassium Chloride 97.1 L Carbon Dioxide BUN 73 H Creatinine 2.2 H Glucose 117 H POC Glucose 123 H Lactic Acid Calcium Phosphorus 1.70 L Magnesium Direct Bilirubin ALT Alkaline Phosphatase Troponin T C-Reactive Protein Total Protein Albumin Triglycerides Cholesterol LDL Cholesterol Direct HDL Cholesterol Urine WBC (Auto) Urine Creatinine Urine Total Protein Vancomycin Trough Rheumatoid Factor Complement C4 Miscellaneous Test Crossmatch 10/26/16 10/26/16 10/26/16 12:12 17:29 23:42 WBC RBC Hgb Hct MCV MCH MCHC RDW Plt Count Lymph % (Auto) [place] % (Auto) Lymph # [place] # Baso # Seg Neutrophils % Seg Neuts % (Manual) Lymphocytes % (Manual) Monocytes % (Manual) Eosinophils % (Manual) Basophils % (Manual) Nucleated RBC % Seg Neutrophils # Seg Neutrophils # Man Lymphocytes # (Manual) Monocytes # (Manual) Eosinophils # (Manual) PT INR Fibrinogen dRVVT Confirm Interp Factor V Activity POC ABG pH POC ABG pCO2 POC ABG pO2 Sodium Potassium Chloride Carbon Dioxide BUN Creatinine Glucose POC Glucose 126 H 161 H 118 H Lactic Acid Calcium Phosphorus Magnesium Direct Bilirubin ALT Alkaline Phosphatase Troponin T C-Reactive Protein Total Protein Albumin Triglycerides Cholesterol LDL Cholesterol Direct HDL Cholesterol Urine WBC (Auto) Urine Creatinine Urine Total Protein Vancomycin Trough Rheumatoid Factor Complement C4 Miscellaneous Test Crossmatch 10/27/16 10/27/16 10/27/16 05:03 06:30 06:30 WBC 13.9 H RBC 3.09 L Hgb 9.2 L Hct 27.5 L MCV MCH MCHC RDW 17.0 H Plt Count Lymph % (Auto) [place] % (Auto) Lymph # [place] # Baso # Seg Neutrophils % Seg Neuts % (Manual) 78.0 H Lymphocytes % (Manual) Monocytes % (Manual) Eosinophils % (Manual) Basophils % (Manual) Nucleated RBC % 2.0 H Seg Neutrophils # Seg Neutrophils # Man 10.8 H Lymphocytes # (Manual) Monocytes # (Manual) 1.0 H Eosinophils # (Manual) PT INR Fibrinogen dRVVT Confirm Interp Factor V Activity POC ABG pH POC ABG pCO2 POC ABG pO2 Sodium Potassium Chloride Carbon Dioxide BUN 40 H Creatinine 1.5 H Glucose 135 H POC Glucose 107 H Lactic Acid Calcium 8.3 L Phosphorus 1.30 L D Magnesium Direct Bilirubin ALT Alkaline Phosphatase Troponin T C-Reactive Protein Total Protein Albumin Triglycerides Cholesterol LDL Cholesterol Direct HDL Cholesterol Urine WBC (Auto) Urine Creatinine Urine Total Protein Vancomycin Trough Rheumatoid Factor Complement C4 Miscellaneous Test Crossmatch 10/27/16 10/27/16 10/27/16 13:27 18:07 23:40 WBC RBC Hgb Hct MCV MCH MCHC RDW Plt Count Lymph % (Auto) [place] % (Auto) Lymph # [place] # Baso # Seg Neutrophils % Seg Neuts % (Manual) Lymphocytes % (Manual) Monocytes % (Manual) Eosinophils % (Manual) Basophils % (Manual) Nucleated RBC % Seg Neutrophils # Seg Neutrophils # Man Lymphocytes # (Manual) Monocytes # (Manual) Eosinophils # (Manual) PT INR Fibrinogen dRVVT Confirm Interp Factor V Activity POC ABG pH POC ABG pCO2 POC ABG pO2 Sodium Potassium Chloride Carbon Dioxide BUN Creatinine Glucose POC Glucose 117 H 121 H 118 H Lactic Acid Calcium Phosphorus Magnesium Direct Bilirubin ALT Alkaline Phosphatase Troponin T C-Reactive Protein Total Protein Albumin Triglycerides Cholesterol LDL Cholesterol Direct HDL Cholesterol Urine WBC (Auto) Urine Creatinine Urine Total Protein Vancomycin Trough Rheumatoid Factor Complement C4 Miscellaneous Test Crossmatch 10/28/16 10/28/16 10/28/16 05:48 06:45 06:45 WBC 14.7 H RBC 3.05 L Hgb 9.0 L Hct 26.9 L MCV MCH MCHC RDW 16.8 H Plt Count Lymph % (Auto) 8.2 L [place] % (Auto) 8.4 H Lymph # [place] # 1.2 H Baso # Seg Neutrophils % 81.9 H Seg Neuts % (Manual) Lymphocytes % (Manual) Monocytes % (Manual) Eosinophils % (Manual) Basophils % (Manual) Nucleated RBC % Seg Neutrophils # 12.1 H Seg Neutrophils # Man Lymphocytes # (Manual) Monocytes # (Manual) Eosinophils # (Manual) PT INR Fibrinogen dRVVT Confirm Interp Factor V Activity POC ABG pH POC ABG pCO2 POC ABG pO2 Sodium Potassium Chloride Carbon Dioxide BUN 60 H Creatinine 1.9 H Glucose 120 H POC Glucose 114 H Lactic Acid Calcium Phosphorus Magnesium Direct Bilirubin ALT Alkaline Phosphatase Troponin T C-Reactive Protein Total Protein Albumin Triglycerides Cholesterol LDL Cholesterol Direct HDL Cholesterol Urine WBC (Auto) Urine Creatinine Urine Total Protein Vancomycin Trough Rheumatoid Factor Complement C4 Miscellaneous Test Crossmatch 10/28/16 10/28/16 10/29/16 17:08 23:50 05:10 WBC RBC Hgb Hct MCV MCH MCHC RDW Plt Count Lymph % (Auto) [place] % (Auto) Lymph # [place] # Baso # Seg Neutrophils % Seg Neuts % (Manual) Lymphocytes % (Manual) Monocytes % (Manual) Eosinophils % (Manual) Basophils % (Manual) Nucleated RBC % Seg Neutrophils # Seg Neutrophils # Man Lymphocytes # (Manual) Monocytes # (Manual) Eosinophils # (Manual) PT INR Fibrinogen dRVVT Confirm Interp Factor V Activity POC ABG pH POC ABG pCO2 POC ABG pO2 Sodium Potassium Chloride Carbon Dioxide BUN Creatinine Glucose POC Glucose 109 H 110 H 124 H Lactic Acid Calcium Phosphorus Magnesium Direct Bilirubin ALT Alkaline Phosphatase Troponin T C-Reactive Protein Total Protein Albumin Triglycerides Cholesterol LDL Cholesterol Direct HDL Cholesterol Urine WBC (Auto) Urine Creatinine Urine Total Protein Vancomycin Trough Rheumatoid Factor Complement C4 Miscellaneous Test Crossmatch 10/29/16 10/29/16 10/29/16 07:45 07:45 12:19 WBC 14.7 H RBC 3.15 L Hgb 9.3 L Hct 28.9 L MCV MCH MCHC RDW 17.0 H Plt Count Lymph % (Auto) 11.9 L [place] % (Auto) 8.6 H Lymph # [place] # 1.3 H Baso # Seg Neutrophils % 78.1 H Seg Neuts % (Manual) Lymphocytes % (Manual) Monocytes % (Manual) Eosinophils % (Manual) Basophils % (Manual) Nucleated RBC % Seg Neutrophils # 11.4 H Seg Neutrophils # Man Lymphocytes # (Manual) Monocytes # (Manual) Eosinophils # (Manual) PT INR Fibrinogen dRVVT Confirm Interp Factor V Activity POC ABG pH POC ABG pCO2 POC ABG pO2 Sodium Potassium 5.1 H Chloride Carbon Dioxide 19 L BUN 78 H Creatinine 2.2 H Glucose 116 H POC Glucose 118 H Lactic Acid Calcium Phosphorus Magnesium Direct Bilirubin ALT Alkaline Phosphatase Troponin T C-Reactive Protein Total Protein Albumin Triglycerides Cholesterol LDL Cholesterol Direct HDL Cholesterol Urine WBC (Auto) Urine Creatinine Urine Total Protein Vancomycin Trough Rheumatoid Factor Complement C4 Miscellaneous Test Crossmatch 10/29/16 10/30/16 10/30/16 17:49 01:52 03:28 WBC RBC Hgb Hct MCV MCH MCHC RDW Plt Count Lymph % (Auto) [place] % (Auto) Lymph # [place] # Baso # Seg Neutrophils % Seg Neuts % (Manual) Lymphocytes % (Manual) Monocytes % (Manual) Eosinophils % (Manual) Basophils % (Manual) Nucleated RBC % Seg Neutrophils # Seg Neutrophils # Man Lymphocytes # (Manual) Monocytes # (Manual) Eosinophils # (Manual) PT INR Fibrinogen dRVVT Confirm Interp Factor V Activity POC ABG pH POC ABG pCO2 POC ABG pO2 Sodium Potassium 5.4 H Chloride 97.5 L Carbon Dioxide 19 L BUN 90 H Creatinine 2.5 H Glucose POC Glucose 120 H 129 H Lactic Acid Calcium Phosphorus 5.20 H Magnesium Direct Bilirubin ALT Alkaline Phosphatase Troponin T C-Reactive Protein Total Protein Albumin Triglycerides Cholesterol LDL Cholesterol Direct HDL Cholesterol Urine WBC (Auto) Urine Creatinine Urine Total Protein Vancomycin Trough Rheumatoid Factor Complement C4 Miscellaneous Test Crossmatch 10/30/16 10/30/16 10/30/16 03:28 08:19 08:19 WBC 11.6 H 15.9 H RBC 2.75 L 2.82 L Hgb 7.9 L 8.3 L Hct 24.2 L 25.2 L MCV MCH MCHC RDW 16.7 H 17.2 H Plt Count Lymph % (Auto) [place] % (Auto) 9.8 H Lymph # [place] # 1.1 H Baso # Seg Neutrophils % 74.2 H Seg Neuts % (Manual) Lymphocytes % (Manual) Monocytes % (Manual) Eosinophils % (Manual) Basophils % (Manual) Nucleated RBC % Seg Neutrophils # 8.6 H Seg Neutrophils # Man Lymphocytes # (Manual) Monocytes # (Manual) Eosinophils # (Manual) PT INR Fibrinogen dRVVT Confirm Interp Factor V Activity POC ABG pH POC ABG pCO2 POC ABG pO2 Sodium Potassium 5.3 H Chloride 97.4 L Carbon Dioxide 19 L BUN 93 H Creatinine 2.6 H Glucose POC Glucose Lactic Acid Calcium Phosphorus Magnesium Direct Bilirubin ALT Alkaline Phosphatase Troponin T C-Reactive Protein Total Protein Albumin Triglycerides Cholesterol LDL Cholesterol Direct HDL Cholesterol Urine WBC (Auto) Urine Creatinine Urine Total Protein Vancomycin Trough Rheumatoid Factor Complement C4 Miscellaneous Test Crossmatch 10/30/16 10/30/16 10/31/16 17:11 23:56 00:40 WBC RBC Hgb Hct MCV MCH MCHC RDW Plt Count Lymph % (Auto) [place] % (Auto) Lymph # [place] # Baso # Seg Neutrophils % Seg Neuts % (Manual) Lymphocytes % (Manual) Monocytes % (Manual) Eosinophils % (Manual) Basophils % (Manual) Nucleated RBC % Seg Neutrophils # Seg Neutrophils # Man Lymphocytes # (Manual) Monocytes # (Manual) Eosinophils # (Manual) PT INR Fibrinogen dRVVT Confirm Interp Factor V Activity POC ABG pH POC ABG pCO2 POC ABG pO2 Sodium Potassium Chloride Carbon Dioxide BUN Creatinine Glucose POC Glucose 106 H 117 H 120 H Lactic Acid Calcium Phosphorus Magnesium Direct Bilirubin ALT Alkaline Phosphatase Troponin T C-Reactive Protein Total Protein Albumin Triglycerides Cholesterol LDL Cholesterol Direct HDL Cholesterol Urine WBC (Auto) Urine Creatinine Urine Total Protein Vancomycin Trough Rheumatoid Factor Complement C4 Miscellaneous Test Crossmatch 10/31/16 10/31/16 10/31/16 05:43 07:15 07:15 WBC 12.1 H RBC 2.63 L Hgb 7.7 L Hct 23.3 L MCV MCH MCHC RDW 16.7 H Plt Count Lymph % (Auto) 11.7 L [place] % (Auto) 7.7 H Lymph # [place] # 0.9 H Baso # Seg Neutrophils % 78.0 H Seg Neuts % (Manual) Lymphocytes % (Manual) Monocytes % (Manual) Eosinophils % (Manual) Basophils % (Manual) Nucleated RBC % Seg Neutrophils # 9.4 H Seg Neutrophils # Man Lymphocytes # (Manual) Monocytes # (Manual) Eosinophils # (Manual) PT INR Fibrinogen dRVVT Confirm Interp Factor V Activity POC ABG pH POC ABG pCO2 POC ABG pO2 Sodium Potassium Chloride 96.4 L Carbon Dioxide 21 L BUN 99 H Creatinine 2.6 H Glucose 144 H POC Glucose 125 H Lactic Acid Calcium Phosphorus 4.80 H Magnesium Direct Bilirubin ALT Alkaline Phosphatase Troponin T C-Reactive Protein Total Protein Albumin Triglycerides Cholesterol LDL Cholesterol Direct HDL Cholesterol Urine WBC (Auto) Urine Creatinine Urine Total Protein Vancomycin Trough Rheumatoid Factor Complement C4 Miscellaneous Test Crossmatch 10/31/16 10/31/16 11/01/16 11:46 18:34 00:20 WBC RBC Hgb Hct MCV MCH MCHC RDW Plt Count Lymph % (Auto) [place] % (Auto) Lymph # [place] # Baso # Seg Neutrophils % Seg Neuts % (Manual) Lymphocytes % (Manual) Monocytes % (Manual) Eosinophils % (Manual) Basophils % (Manual) Nucleated RBC % Seg Neutrophils # Seg Neutrophils # Man Lymphocytes # (Manual) Monocytes # (Manual) Eosinophils # (Manual) PT INR Fibrinogen dRVVT Confirm Interp Factor V Activity POC ABG pH POC ABG pCO2 POC ABG pO2 Sodium Potassium Chloride Carbon Dioxide BUN Creatinine Glucose POC Glucose 159 H 140 H 132 H Lactic Acid Calcium Phosphorus Magnesium Direct Bilirubin ALT Alkaline Phosphatase Troponin T C-Reactive Protein Total Protein Albumin Triglycerides Cholesterol LDL Cholesterol Direct HDL Cholesterol Urine WBC (Auto) Urine Creatinine Urine Total Protein Vancomycin Trough Rheumatoid Factor Complement C4 Miscellaneous Test Crossmatch 11/01/16 11/01/16 11/01/16 04:55 04:55 06:11 WBC 11.2 H RBC 2.68 L Hgb 7.5 L Hct 23.7 L MCV MCH MCHC RDW 16.1 H Plt Count Lymph % (Auto) [place] % (Auto) 9.8 H Lymph # [place] # 1.1 H Baso # Seg Neutrophils % 70.8 H Seg Neuts % (Manual) Lymphocytes % (Manual) Monocytes % (Manual) Eosinophils % (Manual) Basophils % (Manual) Nucleated RBC % Seg Neutrophils # 7.9 H Seg Neutrophils # Man Lymphocytes # (Manual) Monocytes # (Manual) Eosinophils # (Manual) PT INR Fibrinogen dRVVT Confirm Interp Factor V Activity POC ABG pH POC ABG pCO2 POC ABG pO2 Sodium Potassium 3.3 L D Chloride Carbon Dioxide BUN 61 H Creatinine 1.9 H Glucose 114 H POC Glucose 115 H Lactic Acid Calcium Phosphorus 1.80 L D Magnesium Direct Bilirubin ALT Alkaline Phosphatase Troponin T C-Reactive Protein Total Protein Albumin Triglycerides Cholesterol LDL Cholesterol Direct HDL Cholesterol Urine WBC (Auto) Urine Creatinine Urine Total Protein Vancomycin Trough Rheumatoid Factor Complement C4 Miscellaneous Test Crossmatch Allied health notes reviewed: RT
[2016-11-01] MEDS: DURAGESIC TD SCH (13:38)
--- NOTE | 2016-11-01 14:03 | Progress Note ---
Assessment and Plan - Patient Problems (1) Dislodged gastrostomy tube Current Visit: Yes Status: Acute Plan to address problem: will stop packing and place ostomy bags to facilitate drainage. Continue supportive care. Subjective Date of service: 11/01/16 Patient Reports: Positive: afebrile, other (no acute events) Objective Vital Signs - 12hr 11/01/16 11/01/16 11/01/16 02:30 03:00 03:30 Temperature Pulse Rate 113 H 119 H 117 H Respiratory 22 17 19 Rate Blood Pressure 168/99 176/101 185/105 O2 Sat by Pulse 100 99 100 Oximetry 11/01/16 11/01/16 11/01/16 04:00 04:24 04:30 Temperature 99.6 F Pulse Rate 115 H 114 H 111 H Respiratory 18 19 Rate Blood Pressure 196/106 196/106 172/91 O2 Sat by Pulse 100 100 100 Oximetry 11/01/16 11/01/16 11/01/16 04:48 05:00 05:30 Temperature 99.6 F Pulse Rate 114 H 118 H 116 H Respiratory 19 21 Rate Blood Pressure 196/106 179/94 181/90 O2 Sat by Pulse 99 99 Oximetry 11/01/16 11/01/16 11/01/16 06:00 06:31 07:00 Temperature Pulse Rate 120 H 127 H 119 H Respiratory 24 25 H 23 Rate Blood Pressure 168/93 168/93 179/96 O2 Sat by Pulse 99 Oximetry 11/01/16 11/01/16 11/01/16 07:30 08:00 08:30 Temperature 99.1 F Pulse Rate 129 H 115 H 119 H Respiratory 24 24 21 Rate Blood Pressure 161/99 166/96 176/91 O2 Sat by Pulse 100 100 Oximetry 11/01/16 11/01/16 11/01/16 09:00 09:30 09:51 Temperature Pulse Rate 120 H 120 H 117 H Respiratory 35 H 36 H Rate Blood Pressure 175/87 174/90 174/90 O2 Sat by Pulse 97 97 Oximetry 11/01/16 11/01/16 11/01/16 10:00 10:30 11:00 Temperature Pulse Rate 119 H 110 H 109 H Respiratory 40 H 29 H 44 H Rate Blood Pressure 169/82 170/81 163/84 O2 Sat by Pulse 97 98 97 Oximetry 11/01/16 11/01/16 11/01/16 11:30 12:00 12:30 Temperature 98.9 F Pulse Rate 113 H 117 H 118 H Respiratory 44 H 43 H 44 H Rate Blood Pressure 157/80 154/80 144/75 O2 Sat by Pulse 96 96 95 Oximetry 11/01/16 13:37 Temperature Pulse Rate 120 H Respiratory Rate Blood Pressure 150/74 O2 Sat by Pulse Oximetry - General physical appearance no distress - Neck trachea midline - Respiratory normal respiratory effort - Abdomen soft, not tender, not distended, other (copious non foul smelling drainage from right sided wounds) - Labs 11/01/16 04:55 11/01/16 04:55 Diabetes panel 11/01/16 Range/Units 04:55 Sodium 144 D (137-145) mmol/L Potassium 3.3 L D (3.6-5.0) mmol/L Chloride 100.1 (98-107) mmol/L Carbon Dioxide 26 (22-30) mmol/L BUN 61 H (7-17) mg/dL Creatinine 1.9 H (0.7-1.2) mg/dL Glucose 114 H (65-100) mg/dL Calcium 8.5 (8.4-10.2) mg/dL Calcium panel 11/01/16 Range/Units 04:55 Calcium 8.5 (8.4-10.2) mg/dL Phosphorus 1.80 L D (2.5-4.5) mg/dL Pituitary panel 11/01/16 Range/Units 04:55 Sodium 144 D (137-145) mmol/L Potassium 3.3 L D (3.6-5.0) mmol/L Chloride 100.1 (98-107) mmol/L Carbon Dioxide 26 (22-30) mmol/L BUN 61 H (7-17) mg/dL Creatinine 1.9 H (0.7-1.2) mg/dL Glucose 114 H (65-100) mg/dL Calcium 8.5 (8.4-10.2) mg/dL Adrenal panel 11/01/16 Range/Units 04:55 Sodium 144 D (137-145) mmol/L Potassium 3.3 L D (3.6-5.0) mmol/L Chloride 100.1 (98-107) mmol/L Carbon Dioxide 26 (22-30) mmol/L BUN 61 H (7-17) mg/dL Creatinine 1.9 H (0.7-1.2) mg/dL Glucose 114 H (65-100) mg/dL Calcium 8.5 (8.4-10.2) mg/dL
[2016-11-01] MEDS: DIFLUCAN 200 MG/100 ML BAG IV SCH ×2 (17:24)
[2016-11-01] MEDS ORDERED: TPN ADULT 2,016 ML IV SCH (20:00)
[2016-11-02 06:58] LABS: BUN/Creatinine Ratio 31.73; Calcium 8.7 mg/dL (8.4-10.2)
[2016-11-02] MEDS ORDERED: KCL 20MEQ/100ML 20 MEQ/100 ML BAG IV ONE (08:00)
[2016-11-02] MEDS: LOPRESSOR PO SCH ×4 (08:00→23:04)
[2016-11-02] MEDS: HumuLIN R SUB-Q SCH ×4 (08:36→18:45)
[2016-11-02] MEDS: REGLAN IV SCH (08:36)
--- NOTE | 2016-11-02 08:42 | Progress Note ---
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 * Acute hypoxic respiratory failure * Left renal artery stenosis * Metabolic acidosis - improved * Anemia * Hyponatremia - multifactorial Plan: * hemodialysis MWF and prn * monitor for renal recovery * Rate control per cardiology * 4 k bath with dialysis * needs to increase k in tpn * Abx/antifungal per ID * Vent management per critical care * Dose medications for renal function * Avoid potential nephrotoxins Subjective Date of service: 11/02/16 Principal diagnosis: Acute resp failure on MVS; S/P Acute CVA; Acute Encephalopathy; JUANITA Interval history: no new event Objective - Exam Narrative Exam: Gen. appearance: Patient lying in bed, no apparent distress, 4. restraints HEENT: Normocephalic, atraumatic, pupils equally round and reactive to light, extraocular movement intact, and no sclericterus,. No JVD or thyromegaly or nodule,neck supple, no carotid bruit ,mucous membranes moist, unable to examine oral cavity Heart: S1, S2, regular rate and rhythm Lungs: Clear to auscultation bilaterally, breathing comfortable Abdomen: Positive bowel sounds, nontender, nondistended, no organomegaly Extremity: No edema, cyanosis, clubbing Skin: No rash, nodules, warm, dry Neuro: Difficult to assess, facial droop, moves all 4 extremities - Vital Signs Vital signs: Vital Signs - 12hr 11/01/16 11/01/16 11/01/16 21:00 21:30 22:00 Temperature Pulse Rate 110 H 107 H 106 H Respiratory 19 22 22 Rate Blood Pressure 177/84 177/85 172/86 O2 Sat by Pulse 99 99 99 Oximetry 11/01/16 11/01/16 11/01/16 22:30 23:00 23:28 Temperature 100.8 F H Pulse Rate 106 H 107 H Respiratory 21 24 Rate Blood Pressure 165/84 174/78 O2 Sat by Pulse 99 99 Oximetry 11/01/16 11/02/16 11/02/16 23:30 00:00 00:30 Temperature Pulse Rate 113 H 112 H 112 H Respiratory 21 23 21 Rate Blood Pressure 183/88 184/85 177/88 O2 Sat by Pulse 99 99 99 Oximetry 11/02/16 11/02/1611/02/17 01:00 01:30 02:00 Temperature Pulse Rate 110 H 106 H 105 H Respiratory 24 20 22 Rate Blood Pressure 171/88 152/91 159/87 O2 Sat by Pulse 99 100 100 Oximetry 11/02/16 11/02/16 11/02/16 02:30 03:00 03:30 Temperature Pulse Rate 111 H 113 H 109 H Respiratory 22 19 21 Rate Blood Pressure 154/94 165/96 153/96 O2 Sat by Pulse 100 100 100 Oximetry 11/02/16 11/02/16 11/02/16 03:45 04:00 04:30 Temperature 100.4 F H Pulse Rate 107 H 112 H Respiratory 20 21 Rate Blood Pressure 145/100 145/100 O2 Sat by Pulse 100 100 Oximetry 11/02/16 11/02/16 11/02/16 05:01 05:31 06:01 Temperature Pulse Rate 107 H 109 H 116 H Respiratory 19 21 17 Rate Blood Pressure 158/92 201/99 201/99 O2 Sat by Pulse 100 100 100 Oximetry 11/02/16 11/02/16 06:30 07:53 Temperature Pulse Rate 109 H Respiratory 21 Rate Blood Pressure 204/101 O2 Sat by Pulse 100 99 Oximetry - Lab 11/01/16 04:55 11/02/16 04:16 Most recent lab results Calcium 8.7 mg/dL (8.4-10.2) 11/02/16 04:16 Phosphorus 2.50 mg/dL (2.5-4.5) D 11/02/16 04:16 Magnesium 1.80 mg/dL (1.7-2.3) 11/01/16 04:55 Urine Creatinine TNR 10/29/16 07:45 Urine Sodium 36 mEq/L 09/16/16 19:19 Urine Total Protein 16 mg/dL (5-11.8) H 09/16/16 19:19
[2016-11-02] MEDS: MAXIPIME/NS 2 GM/100 ML 2 GM/100 ML BAG IV SCH (10:13)
[2016-11-02] MEDS: PROTONIX FEEDTUBE SCH (10:14)
[2016-11-02] MEDS: NORVASC PO SCH (10:15)
--- NOTE | 2016-11-02 10:39 | Progress Note ---
Assessment and Plan Assessment and plan: --Severe Sepsis with septic shock, recurrent. Patient with multiple episodes of sepsis. Initial episode due to presumed aspiration pneumonia and septic episode on 09/23 from candidemia then a third episode from peritonitis from gastric perforation from dislodged PEG +/-UTI. The latest episode was related to surgical site infection. Fevers have now resolved. Continue antibiotics per ID. --Candidemia. Blood cultures positive for Silvia albicans 09/23, 09/25 but negative on 09/30. PICC line was changed on 10/03 --Accelerated hypertension. Add clonidine patch. --Peritonitis. Etiology from gastric perforation from dislodged PEG with significant ascites. Patient is status post exploratory lap, repair of gastric perforation with weights gastrectomy, abdominal washout and drain placement on . Repeat CT scan of the abdomen reveals no abscess but there is persistent wall thickening involving the sigmoid colon and several loops of small bowel projecting into the pelvis suggestive of enteritis and colitis.(Persistent wall thickening sigmoid colon) --Acute hypoxic respiratory failure, status post tracheostomy, on vent more than 96hrs Pulmonary following --Acute massive CVA with mass effect; continue antiplatelets and statins --Oliguric acute kidney injury. Etiology secondary to ATN on CKD. Baseline creatinine is approximately 1.7. --Paroxysmal atrial fibrillation with rapid ventricular rate, failed cardioversion Continue current medications, Not a candidate for anticoagulation secondary to anemia thrombocytopenia and massive CVA --Anemia; probably secondary to GI bleeding Patient received multiple units of PRBC in the past, H&H has remained stable. re-consult GI if needed If patient has significant vaginal bleeding Consult [facility] as needed -Toxic metabolic encephalopathy; supportive care --Diabetes mellitus type 2, Insulin/SSI --Severe protein caloric malnutrition, cont TPN --s/p Thrombocytopenia. Now resolved --DVT prophylaxis, SCDs, no pharmacological agent given anemia , thrombocytopenia, massive stroke --Full code status, very poor prognosis Dispo. Very poor prognosis. Discahrge planning is for LTACH. However, the facility will not accept the pt unless there is a PEG in place. Unfortunately at present, the patient cannot have PEG due to previous surgery. Surgery reports potentially attempting new feeding tube placement in approximately 1 month. Therefore, the plan is to see if LTACH will take patient and return to hospital to receive PEG. The high probability of a clinically significant, sudden or life threatening deterioration of the [respiratory, GI, immunological and cardiovascular] system( s) required my full and direct attention, intervention and personal management. The aggregate critical care time was [31] minutes. This time is in addition to time spent performing reported procedures but includes the following: [x] Data Review and interpretation [x] Patient assessment and monitoring of vital signs [x] Documentation [x] Medication orders and management History Interval history: No new issues overnight. Hospitalist Physical - Constitutional Vitals: Temp Pulse Resp BP Pulse Ox 99 F 121 H 21 219/103 99 11/02/16 08:00 11/02/16 10:15 11/02/16 06:30 11/02/16 10:15 11/02/16 07:53 General appearance: Present: no acute distress, obese, other (on vent, non- responsive) - EENT Eyes: Present: PERRL, EOM intact ENT: hearing intact, clear oral mucosa, dentition normal - Neck Neck: Present: supple, normal ROM - Respiratory Respiratory effort: normal Respiratory: bilateral: diminished - Cardiovascular Rhythm: regular Heart Sounds: Present: S1 & S2. Absent: gallop, rub - Extremities Extremities: no ischemia, No edema, Full ROM - Abdominal General gastrointestinal: soft, non-tender, non-distended, normal bowel sounds - Integumentary Integumentary: Present: clear, warm, dry - Neurologic Neurologic: other (opens eyes spontaneously and does not follow commands) Results - Labs CBC & Chem 7: 11/01/16 04:55 11/02/16 04:16 Labs: Laboratory Last Values WBC 11.2 K/mm3 (4.5-11.0) H 11/01/16 04:55 RBC 2.68 M/mm3 (3.65-5.03) L 11/01/16 04:55 Hgb 7.5 gm/dl (10.1-14.3) L 11/01/16 04:55 Hct 23.7 % (30.3-42.9) L 11/01/16 04:55 MCV 89 fl (79-97) 11/01/16 04:55 MCH 28 pg (28-32) 11/01/16 04:55 MCHC 32 % (30-34) 11/01/16 04:55 RDW 16.1 % (13.2-15.2) H 11/01/16 04:55 Plt Count 229 K/mm3 (140-440) 11/01/16 04:55 Lymph % (Auto) 16.7 % (13.4-35.0) 11/01/16 04:55 [place] % (Auto) 9.8 % (0.0-7.3) H 11/01/16 04:55 Eos % (Auto) 1.7 % (0.0-4.3) 11/01/16 04:55 Baso % (Auto) 1.0 % (0.0-1.8) 11/01/16 04:55 Lymph # 1.9 K/mm3 (1.2-5.4) 11/01/16 04:55 [place] # 1.1 K/mm3 (0.0-0.8) H 11/01/16 04:55 Eos # 0.2 K/mm3 (0.0-0.4) 11/01/16 04:55 Baso # 0.1 K/mm3 (0.0-0.1) 11/01/16 04:55 Add Manual Diff Complete 10/27/16 06:30 Total Counted 100 10/27/16 06:30 Seg Neutrophils % 70.8 % (40.0-70.0) H 11/01/16 04:55 Seg Neuts % (Manual) 78.0 % (40.0-70.0) H 10/27/16 06:30 Band Neutrophils % 0 % 10/27/16 06:30 Lymphocytes % (Manual) 14.0 % (13.4-35.0) 10/27/16 06:30 Reactive Lymphs % (Man) 0 % 10/27/16 06:30 Monocytes % (Manual) 7.0 % (0.0-7.3) 10/27/16 06:30 Eosinophils % (Manual) 0 % (0.0-4.3) 10/27/16 06:30 Basophils % (Manual) 1.0 % (0.0-1.8) 10/27/16 06:30 Metamyelocytes % 0 % 10/27/16 06:30 Myelocytes % 0 % 10/27/16 06:30 Promyelocytes % 0 % 10/27/16 06:30 Blast Cells % 0 % 10/27/16 06:30 Nucleated RBC % 2.0 % (0.0-0.9) H 10/27/16 06:30 Seg Neutrophils # 7.9 K/mm3 (1.8-7.7) H 11/01/16 04:55 Seg Neutrophils # Man 10.8 K/mm3 (1.8-7.7) H 10/27/16 06:30 Band Neutrophils # 0.0 K/mm3 10/27/16 06:30 Lymphocytes # (Manual) 1.9 K/mm3 (1.2-5.4) 10/27/16 06:30 Abs React Lymphs (Man) 0.0 K/mm3 10/27/16 06:30 Monocytes # (Manual) 1.0 K/mm3 (0.0-0.8) H 10/27/16 06:30 Eosinophils # (Manual) 0.0 K/mm3 (0.0-0.4) 10/27/16 06:30 Basophils # (Manual) 0.1 K/mm3 (0.0-0.1) 10/27/16 06:30 Metamyelocytes # 0.0 K/mm3 10/27/16 06:30 Myelocytes # 0.0 K/mm3 10/27/16 06:30 Promyelocytes # 0.0 K/mm3 10/27/16 06:30 Blast Cells # 0.0 K/mm3 10/27/16 06:30 Pathologist Review 09/13/16 04:00 WBC Morphology Not Reportable 10/27/16 06:30 Hypersegmented Neuts Not Reportable 10/27/16 06:30 Hyposegmented Neuts Not Reportable 10/27/16 06:30 Hypogranular Neuts Not Reportable 10/27/16 06:30 Smudge Cells Not Reportable 10/27/16 06:30 Toxic Granulation Not Reportable 10/27/16 06:30 Toxic Vacuolation Not Reportable 10/27/16 06:30 Dohle Bodies Not Reportable 10/27/16 06:30 Pelger-Huet Anomaly Not Reportable 10/27/16 06:30 Jasmina Rods Not Reportable 10/27/16 06:30 Platelet Estimate Cons 10/27/16 06:30 Clumped Platelets Not Reportable 10/27/16 06:30 Plt Clumps, EDTA Not Reportable 10/27/16 06:30 Large Platelets Few 10/27/16 06:30 Giant Platelets Not Reportable 10/27/16 06:30 Platelet Satelliting Not Reportable 10/27/16 06:30 Plt Morphology Comment Not Reportable 10/27/16 06:30 RBC Morphology Not Reportable 10/27/16 06:30 Dimorphic RBCs Not Reportable 10/27/16 06:30 Polychromasia Not Reportable 10/27/16 06:30 Hypochromasia Not Reportable 10/27/16 06:30 Poikilocytosis Not Reportable 10/27/16 06:30 Anisocytosis 1+ 10/27/16 06:30 Microcytosis Not Reportable 10/27/16 06:30 Macrocytosis Not Reportable 10/27/16 06:30 Spherocytes Not Reportable 10/27/16 06:30 Pappenheimer Bodies Not Reportable 10/27/16 06:30 Sickle Cells Not Reportable 10/27/16 06:30 Target Cells Not Reportable 10/27/16 06:30 Tear Drop Cells Not Reportable 10/27/16 06:30 Ovalocytes Not Reportable 10/27/16 06:30 Stomatocytes Few 10/06/16 03:50 Helmet Cells Not Reportable 10/27/16 06:30 Monet-Appleby Bodies Not Reportable 10/27/16 06:30 Keyes Rings Not Reportable 10/27/16 06:30 Creede Cells Not Reportable 10/27/16 06:30 Bite Cells Not Reportable 10/27/16 06:30 Crenated Cell Not Reportable 10/27/16 06:30 Elliptocytes Not Reportable 10/27/16 06:30 Acanthocytes (Spur) Not Reportable 10/27/16 06:30 Rouleaux Not Reportable 10/27/16 06:30 Hemoglobin C Crystals Not Reportable 10/27/16 06:30 Schistocytes Not Reportable 10/27/16 06:30 Malaria parasites Not Reportable 10/27/16 06:30 ESR > 140.0 mm/Hr (0-20) 09/08/16 11:48 Jun Bodies Not Reportable 10/27/16 06:30 Hem Pathologist Commnt No 10/27/16 06:30 PT 19.0 Sec. (12.2-14.9) H 10/09/16 03:45 INR 1.51 (0.87-1.13) H 10/09/16 03:45 APTT 33.0 Sec. (24.2-36.6) 10/09/16 03:45 Thrombin Time 16.8 Sec. (15.1-19.6) 09/03/16 00:10 Fibrinogen 750 mg/dl (211-480) H 09/08/16 11:48 Lupus Anticoagulant see below 09/12/16 09:59 LA PTT Baseline See scanned report 09/12/16 09:59 dRVVT Confirm Interp Positive (Negative) H 09/12/16 09:59 dRVVT Screen 50:50 See scanned report 09/12/16 09:59 dRVVT Mix Interpret See scanned report 09/12/16 09:59 Protein C Antigen 122 % (70-140) 09/08/16 15:35 Free Protein S 97 % normal (50-147) 09/08/16 15:35 Total Protein S 109 % (70-140) 09/08/16 15:35 Antithrombin III Ag 100 % (80-120) 09/08/16 15:35 Heparin Anti-Xa, Unfract Negative (Negative) 09/29/16 13:35 Factor V Activity 182 % (65-150) H 09/08/16 15:35 POC ABG pH 7.561 (7.35-7.45) H 10/16/16 20:48 POC ABG pCO2 24.4 (35-45) L 10/16/16 20:48 POC ABG pO2 77 (80-105) L 10/16/16 20:48 POC ABG HCO3 21.9 10/16/16 20:48 POC ABG Total CO2 23 10/16/16 20:48 POC ABG O2 Sat 97 10/16/16 20:48 POC ABG Base Excess 0 10/16/16 20:48 FiO2 25 % 10/16/16 20:48 Sodium 142 mmol/L (137-145) 11/02/16 04:16 Potassium 3.1 mmol/L (3.6-5.0) L 11/02/16 04:16 Chloride 98.0 mmol/L (98-107) 11/02/16 04:16 Carbon Dioxide 27 mmol/L (22-30) 11/02/16 04:16 Anion Gap 20 mmol/L 11/02/16 04:16 BUN 73 mg/dL (7-17) H 11/02/16 04:16 Creatinine 2.3 mg/dL (0.7-1.2) H 11/02/16 04:16 Estimated GFR 28 ml/min 11/02/16 04:16 BUN/Creatinine Ratio 31.73 % 11/02/16 04:16 Glucose 112 mg/dL (65-100) H 11/02/16 04:16 POC Glucose 135 (70-105) H 11/02/16 05:29 Osmolality 351 Mosm/kg 09/16/16 11:47 Lactic Acid 4.50 mmol/L (0.7-2.0) H* 09/28/16 07:25 Calcium 8.7 mg/dL (8.4-10.2) 11/02/16 04:16 Phosphorus 2.50 mg/dL (2.5-4.5) D 11/02/16 04:16 Magnesium 1.80 mg/dL (1.7-2.3) 11/01/16 04:55 Total Bilirubin 0.30 mg/dL (0.1-1.2) 10/17/16 04:24 Direct Bilirubin 0.3 mg/dL (0-0.2) H 10/10/16 05:00 Indirect Bilirubin 0.1 mg/dL 10/10/16 05:00 AST 39 units/L (5-40) 10/17/16 04:24 ALT 13 units/L (7-56) 10/17/16 04:24 Alkaline Phosphatase 138 units/L (35-129) H 10/17/16 04:24 Ammonia 27.0 umol/L (25-60) 09/07/16 08:37 Total Creatine Kinase 121 units/L (30-135) 09/29/16 20:12 CK-MB (CK-2) < 1.0 ng/mL (0.0-4.0) 09/29/16 20:12 CK-MB (CK-2) Rel Index 0.8 (0-4) 09/29/16 20:12 Troponin T 0.204 ng/mL (0.00-0.029) H* 09/29/16 20:12 C-Reactive Protein 15.80 mg/dL (0.00-1.30) H 10/11/16 04:15 Total Protein 6.2 g/dL (6.3-8.2) L 10/17/16 04:24 Albumin 1.5 g/dL (3.9-5) L 10/17/16 04:24 Albumin/Globulin Ratio 0.3 % 10/17/16 04:24 Triglycerides 137 mg/dL (2-149) 09/29/16 20:12 Cholesterol 31 mg/dL (50-199) L 09/29/16 20:12 LDL Cholesterol Direct 4 mg/dL (50-130) L 09/29/16 20:12 HDL Cholesterol 3 mg/dL (40-59) L 09/29/16 20:12 Cholesterol/HDL Ratio 10.33 % 09/29/16 20:12 Angiotensin Convert Enz See scanned report 09/08/16 11:48 Renin 0.99 ng/mL/h (0.25-5.82) 10/07/16 10:56 Aldosterone <1 ng/dL () 10/07/16 10:56 Aldosterone/Renin Dir see below 10/07/16 10:56 Serotonin Release Assay See scanned report 09/29/16 13:35 TSH 1.010 mlU/mL (0.270-4.200) 09/07/16 08:37 HCG, Qual Negative (Negative) 09/03/16 00:10 Urine Color [place] (Yellow) 10/07/16 18:30 Urine Turbidity Turbid (Clear) 10/07/16 18:30 Urine pH 7.0 (5.0-7.0) 10/07/16 18:30 Ur Specific [place] 1.012 (1.003-1.030) 10/07/16 18:30 Urine Protein 100 mg/dl mg/dL (Negative) 10/07/16 18:30 Urine Glucose (UA) Neg mg/dL (Negative) 10/07/16 18:30 Urine Ketones Neg mg/dL (Negative) 10/07/16 18:30 Urine Blood Lg (Negative) 10/07/16 18:30 Urine Nitrite Neg (Negative) 10/07/16 18:30 Urine Bilirubin Neg (Negative) 10/07/16 18:30 Urine Urobilinogen < 2.0 mg/dL (<2.0) 10/07/16 18:30 Ur Leukocyte Esterase Lg (Negative) 10/07/16 18:30 Urine WBC (Auto) > 182.0 /HPF (0.0-6.0) H 10/07/16 18:30 Urine RBC (Auto) > 182.0 /HPF (0.0-6.0) 10/07/16 18:30 U Epithel Cells (Auto) 1.0 /HPF (0-13.0) 10/07/16 18:30 Urine Bacteria (Auto) 3+ /HPF (Negative) 10/07/16 18:30 Urine WBC Clumps 2+ /HPF 09/07/16 02:47 Hyaline Casts 4 /LPF 09/07/16 02:47 Urine Mucus Few /HPF 10/07/16 18:30 Urine Yeast (Budding) 3+ /HPF 10/07/16 18:30 Urine Eosinophils None seen (None Seen) 09/07/16 16:00 Urine Total Volume TNR 10/29/16 07:45 Urine Creatinine TNR 10/29/16 07:45 Height (in) TNR 10/29/16 07:45 Weight (lb) TNR 10/29/16 07:45 Creatinine Clearance TNR 10/29/16 07:45 Urine Sodium 36 mEq/L 09/16/16 19:19 Urine Total Protein 16 mg/dL (5-11.8) H 09/16/16 19:19 Vancomycin Trough 2.3 ug/mL (5.0-20.0) L 09/21/16 13:00 Random Vancomycin 17.0 ug/mL (0-40.0) 10/20/16 06:00 Urine Opiates Screen Presumptive negative 09/03/16 15:11 Urine Methadone Screen Presumptive positive 09/03/16 15:11 Ur Barbiturates Screen Presumptive positive 09/03/16 15:11 Ur Phencyclidine Scrn Presumptive negative 09/03/16 15:11 Ur Amphetamines Screen Presumptive negative 09/03/16 15:11 U Benzodiazepines Scrn Presumptive negative 09/03/16 15:11 Urine Cocaine Screen Presumptive negative 09/03/16 15:11 U Marijuana (THC) Screen Presumptive positive 09/03/16 15:11 Drugs of Abuse Note Disclamer 09/03/16 15:11 Rheumatoid Factor 24 IU/ml (0-13) H 09/08/16 11:48 SAHIL Screen Negative (Negative) 09/07/16 09:20 Proteinase 3 (PR3) Ab <1.0 AI (<1.0) 09/07/16 09:20 Myeloperoxidase Ab <1.0 AI (<1.0) 09/07/16 09:20 Sjogren's Antibody <1.0 AI (<1.0) 09/08/16 15:35 Scl-70 Scleroderma Ab <1.0 AI (<1.0) 09/08/16 15:35 Centromere B Antibody <1.0 AI (<1.0) 09/08/16 12:02 Heparin-induced Plt Ab Negative (Negative) 09/29/16 13:35 UF Heparin High Dose 11 % Release 09/29/16 13:35 SUDHIR UFH Low Dose 0.1 6 % Release 09/29/16 13:35 SUDHIR UFH Low Dose 0.5 8 % Release 09/29/16 13:35 Cardiolipid IgG Ab <14 GPL (<=14) 09/12/16 09:59 Cardiolipid IgA Ab <11 APL (<=11) 09/12/16 09:59 Cardiolipid IgM Ab <12 MPL (<=12) 09/12/16 09:59 Complement C3 148 mg/dL (90-180) 09/07/16 09:20 Complement C4 58 mg/dL (16-47) H 09/07/16 09:20 RPR Nonreactive (Nonreactive) 09/08/16 11:48 Hepatitis A IgM Ab Non-reactive (NonReactive) 09/24/16 14:40 Hep Bs Antigen Non-reactive (Negative) 09/24/16 14:40 Hep B Core IgM Ab Non-reactive (NonReactive) 09/24/16 14:40 Hepatitis C Antibody Non-reactive (NonReactive) 09/24/16 14:40 HIV 1&2 Antibody Rapid Non react (Non React) 09/08/16 11:48 HIV P24 Antigen Non react (Non React) 09/08/16 11:48 Miscellaneous Test Flexitest 1 H 10/20/16 16:00 Blood Type A POSITIVE 10/24/16 Unknown Antibody Screen Negative 10/24/16 Unknown DELORIS Antibody Screen Negative 09/25/16 10:30 Crossmatch See Detail 10/24/16 Unknown
[2016-11-02] MEDS: PANCREAZE DR 10,500 UNIT FEEDTUBE PRN (10:48)
[2016-11-02] MEDS: APRESOLINE IV PRN (10:48)
[2016-11-02] MEDS: SODIUM BICARBONATE FEEDTUBE PRN (10:48)
--- NOTE | 2016-11-02 11:02 | Progress Note ---
Assessment and Plan - Patient Problems (1) Acute respiratory failure with hypoxia Current Visit: Yes Status: Acute Plan to address problem: Continue with mechanical ventilatory support and daily SBTs as tolerated Currently tolerating ATP trials Lung protective strategies -VAP bundle, HOB >40 - SCDs for VTE prophylaxis - Stress ulcer prophylaxis -Bronchodilators- h/o asthma - TPN, accucheck with glycemic control - ABGs and CXR PRN (2) Acute blood loss anemia Current Visit: Yes Status: Resolved Plan to address problem: Transfuse for Hgh 7g/dl Monitor counts (3) Acute CVA (cerebrovascular accident) Current Visit: Yes Status: Acute Plan to address problem: CTScan -subacute MCA territory infarct Secondary stroke prophylaxis Neuroprotective measures Aspiration precautions (4) Chronic renal insufficiency Current Visit: Yes Status: Acute Qualifiers: Chronic kidney disease stage: C Plan to address problem: UF/HD per renal service Renal following (5) Uncontrolled hypertension Current Visit: Yes Status: Acute Plan to address problem: Monitor closely and adjust anti-hypertensive medications (6) Leukocytosis (leucocytosis) Current Visit: Yes Status: Acute Qualifiers: Leukocytosis type: leukemoid reaction Qualified Code(s): D72.823 - Leukemoid reaction Plan to address problem: Improving. ID following and monitoring (7) Dislodged gastrostomy tube Current Visit: Yes Status: Acute Plan to address problem: With bowel perforation/peritonitis( resolved) Remains NPO except medications and on TPN for nutritional support. (8) Fungemia Current Visit: Yes Status: Resolved (9) Atrial fibrillation Current Visit: Yes Status: Chronic Qualifiers: Atrial fibrillation type: A Plan to address problem: Failed cardioversion. Not a candidate for anti-coagulation. Cardiology following (10) Dysphagia, oropharyngeal Current Visit: Yes Status: Acute Plan to address problem: Peritonitis, no intra-abdominal abscess. Currently on TPN Subjective Date of service: 11/02/16 Principal diagnosis: Acute resp failure on MVS; S/P Acute CVA; Acute Encephalopathy; JUANITA Interval history: Seen and examined. Vitals, labs, medications, chart reviewed. On mechanical ventilatory support at night On TPN, with purulent drainage from the JUAN drain. No new overnight events. Atrial fibrillation, failed cardioversion. Blood pressure control remains challenging. Discussed with RT and RN during interdisciplinary rounds. Tolerating SBT-currently on ATP Objective Vital Signs - 12hr 11/01/16 11/01/1617 23:28 23:30 00:00 Temperature 100.8 F H Pulse Rate 113 H 112 H Respiratory 21 23 Rate Blood Pressure 183/88 184/85 O2 Sat by Pulse 99 99 Oximetry 11/02/16 11/02/16 11/02/16 00:30 01:00 01:30 Temperature Pulse Rate 112 H 110 H 106 H Respiratory 21 24 20 Rate Blood Pressure 177/88 171/88 152/91 O2 Sat by Pulse 99 99 100 Oximetry 11/02/16 11/02/16 11/02/16 02:00 02:30 03:00 Temperature Pulse Rate 105 H 111 H 113 H Respiratory 22 22 19 Rate Blood Pressure 159/87 154/94 165/96 O2 Sat by Pulse 100 100 100 Oximetry 11/02/16 11/02/16 11/02/16 03:30 03:45 04:00 Temperature 100.4 F H Pulse Rate 109 H 107 H Respiratory 21 20 Rate Blood Pressure 153/96 145/100 O2 Sat by Pulse 100 100 Oximetry 11/02/16 11/02/16 11/02/16 04:30 05:01 05:31 Temperature Pulse Rate 112 H 107 H 109 H Respiratory 21 19 21 Rate Blood Pressure 145/100 158/92 201/99 O2 Sat by Pulse 100 100 100 Oximetry 11/02/16 11/02/16 11/02/16 06:01 06:30 07:00 Temperature Pulse Rate 116 H 109 H 107 H Respiratory 17 21 21 Rate Blood Pressure 201/99 204/101 194/98 O2 Sat by Pulse 100 100 100 Oximetry 11/02/16 11/02/16 11/02/16 07:30 07:53 08:00 Temperature 99 F Pulse Rate 107 H 105 H Respiratory 20 21 Rate Blood Pressure 202/103 211/106 O2 Sat by Pulse 100 99 100 Oximetry 11/02/16 11/02/16 11/02/16 08:30 09:00 09:30 Temperature Pulse Rate 106 H 115 H 112 H Respiratory 19 32 H 37 H Rate Blood Pressure 212/109 224/116 211/106 O2 Sat by Pulse 100 100 95 Oximetry 11/02/16 11/02/16 11/02/16 10:00 10:15 10:31 Temperature Pulse Rate 112 H 121 H 98 H Respiratory 37 H 27 H Rate Blood Pressure 219/103 219/103 182/78 O2 Sat by Pulse 97 98 Oximetry 11/02/16 10:48 Temperature Pulse Rate 99 H Respiratory Rate Blood Pressure 182/78 O2 Sat by Pulse Oximetry Constitutional: no acute distress, other (eyes open; not tracking movements) Eyes: non-icteric, other (tracheostomy tube in midline of neck) ENT: oropharynx moist Neck: supple, no lymphadenopathy Effort: mildly labored Ascultation: Right: diminished breath sounds (base), Bilateral: clear, rales, rhonchi (scant) Cardiovascular: regular rate and rhythm, irregular rhythm Gastrointestinal: hypoactive bowel sounds, soft, non-tender, non-distended, other (RLQ wound dressed) Integumentary: other (erythema to skin of back with some healing areas; no obvious TEN's features) Extremities: no cyanosis, no edema, pulses normal, no ischemia or petechiae Neurologic: pupils equal and round, other (encephalopathic, spontaneous eye opening but not obeying commands) Psychiatric: other (unable to assess) CBC and BMP: 12/28/16 04:00 12/29/16 05:15 ABG, PT/INR, D-dimer: ABG POC ABG pH 7.561 (7.35-7.45) H 10/16/16 20:48 POC ABG pCO2 24.4 (35-45) L 10/16/16 20:48 POC ABG pO2 77 (80-105) L 10/16/16 20:48 POC ABG HCO3 21.9 10/16/16 20:48 POC ABG Total CO2 23 10/16/16 20:48 POC ABG O2 Sat 97 10/16/16 20:48 PT/INR, D-dimer PT 19.0 Sec. (12.2-14.9) H 10/09/16 03:45 INR 1.51 (0.87-1.13) H 10/09/16 03:45 Abnormal lab findings: Abnormal Labs 09/03/16 09/03/16 09/03/16 12:12 15:07 16:20 WBC RBC Hgb Hct MCV MCH MCHC RDW Plt Count Lymph % (Auto) [place] % (Auto) Lymph # [place] # Baso # Seg Neutrophils % Seg Neuts % (Manual) Lymphocytes % (Manual) Monocytes % (Manual) Eosinophils % (Manual) Basophils % (Manual) Nucleated RBC % Seg Neutrophils # Seg Neutrophils # Man Lymphocytes # (Manual) Monocytes # (Manual) Eosinophils # (Manual) PT INR Fibrinogen dRVVT Confirm Interp Factor V Activity POC ABG pH 7.452 H POC ABG pCO2 POC ABG pO2 Sodium Potassium Chloride Carbon Dioxide BUN Creatinine Glucose POC Glucose 178 H Lactic Acid Calcium Phosphorus 2.20 L Magnesium 1.60 L Direct Bilirubin ALT Alkaline Phosphatase Troponin T C-Reactive Protein Total Protein Albumin Triglycerides Cholesterol LDL Cholesterol Direct HDL Cholesterol Urine WBC (Auto) Urine Creatinine Urine Total Protein Vancomycin Trough Rheumatoid Factor Complement C4 Miscellaneous Test Crossmatch 09/03/16 09/03/16 09/03/16 17:57 17:58 23:50 WBC RBC Hgb Hct MCV MCH MCHC RDW Plt Count Lymph % (Auto) [place] % (Auto) Lymph # [place] # Baso # Seg Neutrophils % Seg Neuts % (Manual) Lymphocytes % (Manual) Monocytes % (Manual) Eosinophils % (Manual) Basophils % (Manual) Nucleated RBC % Seg Neutrophils # Seg Neutrophils # Man Lymphocytes # (Manual) Monocytes # (Manual) Eosinophils # (Manual) PT INR Fibrinogen dRVVT Confirm Interp Factor V Activity POC ABG pH POC ABG pCO2 POC ABG pO2 Sodium Potassium Chloride Carbon Dioxide BUN Creatinine Glucose POC Glucose 162 H 145 H Lactic Acid Calcium Phosphorus 2.30 L Magnesium Direct Bilirubin ALT Alkaline Phosphatase Troponin T C-Reactive Protein Total Protein Albumin Triglycerides Cholesterol LDL Cholesterol Direct HDL Cholesterol Urine WBC (Auto) Urine Creatinine Urine Total Protein Vancomycin Trough Rheumatoid Factor Complement C4 Miscellaneous Test Crossmatch 09/04/16 09/04/16 09/04/16 03:31 03:31 05:42 WBC RBC Hgb 9.7 L D Hct MCV 72 L MCH 23 L MCHC RDW 17.5 H Plt Count Lymph % (Auto) 11.1 L [place] % (Auto) Lymph # [place] # Baso # Seg Neutrophils % 84.3 H Seg Neuts % (Manual) Lymphocytes % (Manual) Monocytes % (Manual) Eosinophils % (Manual) Basophils % (Manual) Nucleated RBC % Seg Neutrophils # 8.9 H Seg Neutrophils # Man Lymphocytes # (Manual) Monocytes # (Manual) Eosinophils # (Manual) PT INR Fibrinogen dRVVT Confirm Interp Factor V Activity POC ABG pH POC ABG pCO2 POC ABG pO2 Sodium 135 L Potassium 2.9 L* Chloride 97.2 L Carbon Dioxide 19 L BUN Creatinine 1.7 H Glucose 170 H POC Glucose 152 H Lactic Acid Calcium Phosphorus Magnesium Direct Bilirubin ALT Alkaline Phosphatase Troponin T C-Reactive Protein Total Protein Albumin Triglycerides 160 H Cholesterol LDL Cholesterol Direct HDL Cholesterol 31 L Urine WBC (Auto) Urine Creatinine Urine Total Protein Vancomycin Trough Rheumatoid Factor Complement C4 Miscellaneous Test Crossmatch 09/04/16 09/04/16 09/04/16 11:34 17:46 23:29 WBC RBC Hgb Hct MCV MCH MCHC RDW Plt Count Lymph % (Auto) [place] % (Auto) Lymph # [place] # Baso # Seg Neutrophils % Seg Neuts % (Manual) Lymphocytes % (Manual) Monocytes % (Manual) Eosinophils % (Manual) Basophils % (Manual) Nucleated RBC % Seg Neutrophils # Seg Neutrophils # Man Lymphocytes # (Manual) Monocytes # (Manual) Eosinophils # (Manual) PT INR Fibrinogen dRVVT Confirm Interp Factor V Activity POC ABG pH POC ABG pCO2 POC ABG pO2 Sodium Potassium Chloride Carbon Dioxide BUN Creatinine Glucose POC Glucose 165 H 210 H 139 H Lactic Acid Calcium Phosphorus Magnesium Direct Bilirubin ALT Alkaline Phosphatase Troponin T C-Reactive Protein Total Protein Albumin Triglycerides Cholesterol LDL Cholesterol Direct HDL Cholesterol Urine WBC (Auto) Urine Creatinine Urine Total Protein Vancomycin Trough Rheumatoid Factor Complement C4 Miscellaneous Test Crossmatch 09/05/16 09/05/16 09/05/16 04:05 04:05 05:38 WBC RBC Hgb Hct MCV 76 L D MCH 23 L MCHC RDW 17.8 H Plt Count Lymph % (Auto) [place] % (Auto) Lymph # [place] # Baso # Seg Neutrophils % Seg Neuts % (Manual) Lymphocytes % (Manual) Monocytes % (Manual) Eosinophils % (Manual) Basophils % (Manual) Nucleated RBC % Seg Neutrophils # Seg Neutrophils # Man Lymphocytes # (Manual) Monocytes # (Manual) Eosinophils # (Manual) PT INR Fibrinogen dRVVT Confirm Interp Factor V Activity POC ABG pH POC ABG pCO2 POC ABG pO2 Sodium 134 L Potassium Chloride Carbon Dioxide 18 L BUN Creatinine 1.8 H Glucose 192 H POC Glucose 175 H Lactic Acid Calcium Phosphorus Magnesium Direct Bilirubin ALT Alkaline Phosphatase Troponin T C-Reactive Protein Total Protein Albumin Triglycerides Cholesterol LDL Cholesterol Direct HDL Cholesterol Urine WBC (Auto) Urine Creatinine Urine Total Protein Vancomycin Trough Rheumatoid Factor Complement C4 Miscellaneous Test Crossmatch 09/05/16 09/05/16 09/05/16 11:38 17:48 23:22 WBC RBC Hgb Hct MCV MCH MCHC RDW Plt Count Lymph % (Auto) [place] % (Auto) Lymph # [place] # Baso # Seg Neutrophils % Seg Neuts % (Manual) Lymphocytes % (Manual) Monocytes % (Manual) Eosinophils % (Manual) Basophils % (Manual) Nucleated RBC % Seg Neutrophils # Seg Neutrophils # Man Lymphocytes # (Manual) Monocytes # (Manual) Eosinophils # (Manual) PT INR Fibrinogen dRVVT Confirm Interp Factor V Activity POC ABG pH POC ABG pCO2 POC ABG pO2 Sodium Potassium Chloride Carbon Dioxide BUN Creatinine Glucose POC Glucose 164 H 186 H 195 H Lactic Acid Calcium Phosphorus Magnesium Direct Bilirubin ALT Alkaline Phosphatase Troponin T C-Reactive Protein Total Protein Albumin Triglycerides Cholesterol LDL Cholesterol Direct HDL Cholesterol Urine WBC (Auto) Urine Creatinine Urine Total Protein Vancomycin Trough Rheumatoid Factor Complement C4 Miscellaneous Test Crossmatch 09/06/16 09/06/16 09/06/16 04:12 05:59 07:32 WBC RBC Hgb Hct MCV MCH MCHC RDW Plt Count Lymph % (Auto) [place] % (Auto) Lymph # [place] # Baso # Seg Neutrophils % Seg Neuts % (Manual) Lymphocytes % (Manual) Monocytes % (Manual) Eosinophils % (Manual) Basophils % (Manual) Nucleated RBC % Seg Neutrophils # Seg Neutrophils # Man Lymphocytes # (Manual) Monocytes # (Manual) Eosinophils # (Manual) PT INR Fibrinogen dRVVT Confirm Interp Factor V Activity POC ABG pH 7.514 H POC ABG pCO2 29.1 L POC ABG pO2 72 L Sodium 133 L Potassium 3.4 L Chloride 94.9 L Carbon Dioxide 19 L BUN 30 H Creatinine 2.1 H Glucose 139 H POC Glucose 146 H Lactic Acid Calcium Phosphorus Magnesium Direct Bilirubin ALT Alkaline Phosphatase Troponin T C-Reactive Protein Total Protein Albumin Triglycerides Cholesterol LDL Cholesterol Direct HDL Cholesterol Urine WBC (Auto) Urine Creatinine Urine Total Protein Vancomycin Trough Rheumatoid Factor Complement C4 Miscellaneous Test Crossmatch 09/06/16 09/06/16 09/06/16 11:57 17:58 19:02 WBC RBC Hgb Hct MCV MCH MCHC RDW Plt Count Lymph % (Auto) [place] % (Auto) Lymph # [place] # Baso # Seg Neutrophils % Seg Neuts % (Manual) Lymphocytes % (Manual) Monocytes % (Manual) Eosinophils % (Manual) Basophils % (Manual) Nucleated RBC % Seg Neutrophils # Seg Neutrophils # Man Lymphocytes # (Manual) Monocytes # (Manual) Eosinophils # (Manual) PT INR Fibrinogen dRVVT Confirm Interp Factor V Activity POC ABG pH 7.465 H POC ABG pCO2 32.0 L POC ABG pO2 Sodium Potassium Chloride Carbon Dioxide BUN Creatinine Glucose POC Glucose 165 H 160 H Lactic Acid Calcium Phosphorus Magnesium Direct Bilirubin ALT Alkaline Phosphatase Troponin T C-Reactive Protein Total Protein Albumin Triglycerides Cholesterol LDL Cholesterol Direct HDL Cholesterol Urine WBC (Auto) Urine Creatinine Urine Total Protein Vancomycin Trough Rheumatoid Factor Complement C4 Miscellaneous Test Crossmatch 09/06/16 09/07/16 09/07/16 23:45 02:47 02:47 WBC RBC Hgb Hct MCV MCH MCHC RDW Plt Count Lymph % (Auto) [place] % (Auto) Lymph # [place] # Baso # Seg Neutrophils % Seg Neuts % (Manual) Lymphocytes % (Manual) Monocytes % (Manual) Eosinophils % (Manual) Basophils % (Manual) Nucleated RBC % Seg Neutrophils # Seg Neutrophils # Man Lymphocytes # (Manual) Monocytes # (Manual) Eosinophils # (Manual) PT INR Fibrinogen dRVVT Confirm Interp Factor V Activity POC ABG pH POC ABG pCO2 POC ABG pO2 Sodium Potassium Chloride Carbon Dioxide BUN Creatinine Glucose POC Glucose 204 H Lactic Acid Calcium Phosphorus Magnesium Direct Bilirubin ALT Alkaline Phosphatase Troponin T C-Reactive Protein Total Protein Albumin Triglycerides Cholesterol LDL Cholesterol Direct HDL Cholesterol Urine WBC (Auto) 68.0 H Urine Creatinine 106.1 H Urine Total Protein Vancomycin Trough Rheumatoid Factor Complement C4 Miscellaneous Test Crossmatch 09/07/16 09/07/16 09/07/16 04:50 06:19 06:39 WBC RBC Hgb Hct MCV MCH MCHC RDW Plt Count Lymph % (Auto) [place] % (Auto) Lymph # [place] # Baso # Seg Neutrophils % Seg Neuts % (Manual) Lymphocytes % (Manual) Monocytes % (Manual) Eosinophils % (Manual) Basophils % (Manual) Nucleated RBC % Seg Neutrophils # Seg Neutrophils # Man Lymphocytes # (Manual) Monocytes # (Manual) Eosinophils # (Manual) PT INR Fibrinogen dRVVT Confirm Interp Factor V Activity POC ABG pH 7.457 H POC ABG pCO2 32.1 L POC ABG pO2 76 L Sodium 132 L Potassium Chloride 94.7 L Carbon Dioxide BUN 53 H Creatinine 2.9 H Glucose 151 H POC Glucose 149 H Lactic Acid Calcium Phosphorus Magnesium Direct Bilirubin ALT Alkaline Phosphatase Troponin T C-Reactive Protein Total Protein Albumin Triglycerides Cholesterol LDL Cholesterol Direct HDL Cholesterol Urine WBC (Auto) Urine Creatinine Urine Total Protein Vancomycin Trough Rheumatoid Factor Complement C4 Miscellaneous Test Crossmatch 09/07/16 09/07/16 09/07/16 09:20 11:43 11:43 WBC 19.4 H RBC Hgb 8.3 L Hct 26.4 L D MCV 72 L D MCH 22 L MCHC RDW 17.9 H Plt Count Lymph % (Auto) 8.5 L [place] % (Auto) Lymph # [place] # 1.0 H Baso # Seg Neutrophils % 85.8 H Seg Neuts % (Manual) Lymphocytes % (Manual) Monocytes % (Manual) Eosinophils % (Manual) Basophils % (Manual) Nucleated RBC % Seg Neutrophils # 16.6 H Seg Neutrophils # Man Lymphocytes # (Manual) Monocytes # (Manual) Eosinophils # (Manual) PT INR Fibrinogen dRVVT Confirm Interp Factor V Activity POC ABG pH POC ABG pCO2 POC ABG pO2 Sodium 134 L Potassium Chloride 97.2 L Carbon Dioxide 20 L BUN 58 H Creatinine 2.9 H Glucose 147 H POC Glucose Lactic Acid Calcium Phosphorus 2.40 L Magnesium 2.40 H Direct Bilirubin ALT Alkaline Phosphatase Troponin T C-Reactive Protein Total Protein 5.8 L Albumin 2.2 L Triglycerides Cholesterol LDL Cholesterol Direct HDL Cholesterol Urine WBC (Auto) Urine Creatinine Urine Total Protein Vancomycin Trough Rheumatoid Factor Complement C4 58 H Miscellaneous Test Crossmatch 09/07/16 09/07/16 09/07/16 11:50 16:00 17:31 WBC RBC Hgb Hct MCV MCH MCHC RDW Plt Count Lymph % (Auto) [place] % (Auto) Lymph # [place] # Baso # Seg Neutrophils % Seg Neuts % (Manual) Lymphocytes % (Manual) Monocytes % (Manual) Eosinophils % (Manual) Basophils % (Manual) Nucleated RBC % Seg Neutrophils # Seg Neutrophils # Man Lymphocytes # (Manual) Monocytes # (Manual) Eosinophils # (Manual) PT INR Fibrinogen dRVVT Confirm Interp Factor V Activity POC ABG pH POC ABG pCO2 POC ABG pO2 158 H Sodium Potassium Chloride Carbon Dioxide BUN Creatinine Glucose POC Glucose 175 H Lactic Acid Calcium Phosphorus Magnesium Direct Bilirubin ALT Alkaline Phosphatase Troponin T C-Reactive Protein Total Protein Albumin Triglycerides Cholesterol LDL Cholesterol Direct HDL Cholesterol Urine WBC (Auto) Urine Creatinine 66.3 H Urine Total Protein Vancomycin Trough Rheumatoid Factor Complement C4 Miscellaneous Test Crossmatch 09/07/16 09/08/16 09/08/16 23:50 05:46 06:18 WBC 17.8 H RBC 3.58 L Hgb 8.1 L Hct 25.5 L MCV 71 L MCH 23 L MCHC RDW 18.4 H Plt Count Lymph % (Auto) [place] % (Auto) Lymph # [place] # Baso # Seg Neutrophils % Seg Neuts % (Manual) 92.0 H Lymphocytes % (Manual) 6.0 L Monocytes % (Manual) Eosinophils % (Manual) Basophils % (Manual) Nucleated RBC % Seg Neutrophils # Seg Neutrophils # Man 16.4 H Lymphocytes # (Manual) 1.1 L Monocytes # (Manual) Eosinophils # (Manual) PT INR Fibrinogen dRVVT Confirm Interp Factor V Activity POC ABG pH POC ABG pCO2 34.3 L POC ABG pO2 71 L Sodium Potassium Chloride Carbon Dioxide BUN Creatinine Glucose POC Glucose 216 H Lactic Acid Calcium Phosphorus Magnesium Direct Bilirubin ALT Alkaline Phosphatase Troponin T C-Reactive Protein Total Protein Albumin Triglycerides Cholesterol LDL Cholesterol Direct HDL Cholesterol Urine WBC (Auto) Urine Creatinine Urine Total Protein Vancomycin Trough Rheumatoid Factor Complement C4 Miscellaneous Test Crossmatch 09/08/16 09/08/16 09/08/16 06:18 06:51 10:55 WBC RBC Hgb Hct MCV MCH MCHC RDW Plt Count Lymph % (Auto) [place] % (Auto) Lymph # [place] # Baso # Seg Neutrophils % Seg Neuts % (Manual) Lymphocytes % (Manual) Monocytes % (Manual) Eosinophils % (Manual) Basophils % (Manual) Nucleated RBC % Seg Neutrophils # Seg Neutrophils # Man Lymphocytes # (Manual) Monocytes # (Manual) Eosinophils # (Manual) PT INR Fibrinogen dRVVT Confirm Interp Factor V Activity POC ABG pH POC ABG pCO2 POC ABG pO2 Sodium 133 L Potassium Chloride 96.9 L Carbon Dioxide 20 L BUN 63 H Creatinine 2.7 H Glucose 195 H POC Glucose 204 H 169 H Lactic Acid Calcium Phosphorus Magnesium Direct Bilirubin ALT Alkaline Phosphatase Troponin T C-Reactive Protein Total Protein Albumin Triglycerides Cholesterol LDL Cholesterol Direct HDL Cholesterol Urine WBC (Auto) Urine Creatinine Urine Total Protein Vancomycin Trough Rheumatoid Factor Complement C4 Miscellaneous Test Crossmatch 09/08/16 09/08/16 09/08/16 11:48 11:48 11:48 WBC RBC Hgb Hct MCV MCH MCHC RDW Plt Count Lymph % (Auto) [place] % (Auto) Lymph # [place] # Baso # Seg Neutrophils % Seg Neuts % (Manual) Lymphocytes % (Manual) Monocytes % (Manual) Eosinophils % (Manual) Basophils % (Manual) Nucleated RBC % Seg Neutrophils # Seg Neutrophils # Man Lymphocytes # (Manual) Monocytes # (Manual) Eosinophils # (Manual) PT INR Fibrinogen 750 H dRVVT Confirm Interp Factor V Activity POC ABG pH POC ABG pCO2 POC ABG pO2 Sodium Potassium Chloride Carbon Dioxide BUN Creatinine Glucose POC Glucose Lactic Acid Calcium Phosphorus Magnesium Direct Bilirubin ALT Alkaline Phosphatase Troponin T C-Reactive Protein 15.70 H Total Protein Albumin Triglycerides Cholesterol LDL Cholesterol Direct HDL Cholesterol Urine WBC (Auto) Urine Creatinine Urine Total Protein Vancomycin Trough Rheumatoid Factor 24 H Complement C4 Miscellaneous Test Crossmatch 09/08/16 09/08/16 09/09/16 15:35 18:25 00:24 WBC RBC Hgb Hct MCV MCH MCHC RDW Plt Count Lymph % (Auto) [place] % (Auto) Lymph # [place] # Baso # Seg Neutrophils % Seg Neuts % (Manual) Lymphocytes % (Manual) Monocytes % (Manual) Eosinophils % (Manual) Basophils % (Manual) Nucleated RBC % Seg Neutrophils # Seg Neutrophils # Man Lymphocytes # (Manual) Monocytes # (Manual) Eosinophils # (Manual) PT INR Fibrinogen dRVVT Confirm Interp Factor V Activity 182 H POC ABG pH POC ABG pCO2 POC ABG pO2 Sodium Potassium Chloride Carbon Dioxide BUN Creatinine Glucose POC Glucose 184 H 216 H Lactic Acid Calcium Phosphorus Magnesium Direct Bilirubin ALT Alkaline Phosphatase Troponin T C-Reactive Protein Total Protein Albumin Triglycerides Cholesterol LDL Cholesterol Direct HDL Cholesterol Urine WBC (Auto) Urine Creatinine Urine Total Protein Vancomycin Trough Rheumatoid Factor Complement C4 Miscellaneous Test Crossmatch 09/09/16 09/09/16 09/09/16 03:00 03:00 04:04 WBC 27.9 H RBC Hgb 8.7 L Hct 28.1 L MCV 72 L MCH 22 L MCHC RDW 18.4 H Plt Count 485 H Lymph % (Auto) [place] % (Auto) Lymph # [place] # Baso # Seg Neutrophils % Seg Neuts % (Manual) 77.0 H Lymphocytes % (Manual) 9.0 L Monocytes % (Manual) Eosinophils % (Manual) Basophils % (Manual) Nucleated RBC % Seg Neutrophils # Seg Neutrophils # Man 21.5 H Lymphocytes # (Manual) Monocytes # (Manual) 2.0 H Eosinophils # (Manual) PT INR Fibrinogen dRVVT Confirm Interp Factor V Activity POC ABG pH POC ABG pCO2 POC ABG pO2 121 H Sodium 135 L Potassium Chloride 96.3 L Carbon Dioxide 21 L BUN 83 H Creatinine 3.0 H Glucose 135 H POC Glucose Lactic Acid Calcium Phosphorus Magnesium Direct Bilirubin ALT Alkaline Phosphatase Troponin T C-Reactive Protein Total Protein Albumin Triglycerides Cholesterol LDL Cholesterol Direct HDL Cholesterol Urine WBC (Auto) Urine Creatinine Urine Total Protein Vancomycin Trough Rheumatoid Factor Complement C4 Miscellaneous Test Crossmatch 09/09/16 09/09/16 09/09/16 05:41 11:55 14:13 WBC RBC Hgb Hct MCV MCH MCHC RDW Plt Count Lymph % (Auto) [place] % (Auto) Lymph # [place] # Baso # Seg Neutrophils % Seg Neuts % (Manual) Lymphocytes % (Manual) Monocytes % (Manual) Eosinophils % (Manual) Basophils % (Manual) Nucleated RBC % Seg Neutrophils # Seg Neutrophils # Man Lymphocytes # (Manual) Monocytes # (Manual) Eosinophils # (Manual) PT INR Fibrinogen dRVVT Confirm Interp Factor V Activity POC ABG pH POC ABG pCO2 POC ABG pO2 Sodium Potassium Chloride Carbon Dioxide BUN Creatinine Glucose POC Glucose 155 H 186 H Lactic Acid Calcium Phosphorus Magnesium Direct Bilirubin ALT Alkaline Phosphatase Troponin T C-Reactive Protein Total Protein Albumin Triglycerides Cholesterol LDL Cholesterol Direct HDL Cholesterol Urine WBC (Auto) 25.0 H Urine Creatinine Urine Total Protein Vancomycin Trough Rheumatoid Factor Complement C4 Miscellaneous Test Crossmatch 09/09/16 09/09/16 09/10/16 17:33 23:13 05:09 WBC RBC Hgb Hct MCV MCH MCHC RDW Plt Count Lymph % (Auto) [place] % (Auto) Lymph # [place] # Baso # Seg Neutrophils % Seg Neuts % (Manual) Lymphocytes % (Manual) Monocytes % (Manual) Eosinophils % (Manual) Basophils % (Manual) Nucleated RBC % Seg Neutrophils # Seg Neutrophils # Man Lymphocytes # (Manual) Monocytes # (Manual) Eosinophils # (Manual) PT INR Fibrinogen dRVVT Confirm Interp Factor V Activity POC ABG pH POC ABG pCO2 POC ABG pO2 74 L Sodium Potassium Chloride Carbon Dioxide BUN Creatinine Glucose POC Glucose 211 H 215 H Lactic Acid Calcium Phosphorus Magnesium Direct Bilirubin ALT Alkaline Phosphatase Troponin T C-Reactive Protein Total Protein Albumin Triglycerides Cholesterol LDL Cholesterol Direct HDL Cholesterol Urine WBC (Auto) Urine Creatinine Urine Total Protein Vancomycin Trough Rheumatoid Factor Complement C4 Miscellaneous Test Crossmatch 07/22/17 07/22/17 07/22/17 05:17 05:17 11:31 WBC 15.8 H RBC 3.25 L Hgb 7.3 L Hct 22.9 L MCV 71 L MCH 23 L MCHC RDW 18.4 H Plt Count Lymph % (Auto) [place] % (Auto) Lymph # [place] # Baso # Seg Neutrophils % Seg Neuts % (Manual) 91.0 H Lymphocytes % (Manual) 4.0 L Monocytes % (Manual) Eosinophils % (Manual) Basophils % (Manual) Nucleated RBC % Seg Neutrophils # Seg Neutrophils # Man 14.4 H Lymphocytes # (Manual) 0.6 L Monocytes # (Manual) Eosinophils # (Manual) PT INR Fibrinogen dRVVT Confirm Interp Factor V Activity POC ABG pH POC ABG pCO2 POC ABG pO2 Sodium Potassium Chloride Carbon Dioxide 21 L BUN 93 H Creatinine 2.9 H Glucose 146 H POC Glucose 188 H Lactic Acid Calcium 8.1 L Phosphorus Magnesium Direct Bilirubin ALT Alkaline Phosphatase Troponin T C-Reactive Protein Total Protein Albumin Triglycerides Cholesterol LDL Cholesterol Direct HDL Cholesterol Urine WBC (Auto) Urine Creatinine Urine Total Protein Vancomycin Trough Rheumatoid Factor Complement C4 Miscellaneous Test Crossmatch 09/10/16 09/10/16 09/10/16 13:17 17:20 23:32 WBC RBC Hgb Hct MCV MCH MCHC RDW Plt Count Lymph % (Auto) [place] % (Auto) Lymph # [place] # Baso # Seg Neutrophils % Seg Neuts % (Manual) Lymphocytes % (Manual) Monocytes % (Manual) Eosinophils % (Manual) Basophils % (Manual) Nucleated RBC % Seg Neutrophils # Seg Neutrophils # Man Lymphocytes # (Manual) Monocytes # (Manual) Eosinophils # (Manual) PT INR Fibrinogen dRVVT Confirm Interp Factor V Activity POC ABG pH POC ABG pCO2 POC ABG pO2 Sodium Potassium Chloride Carbon Dioxide BUN Creatinine Glucose POC Glucose 199 H 186 H Lactic Acid Calcium Phosphorus Magnesium Direct Bilirubin ALT Alkaline Phosphatase Troponin T C-Reactive Protein Total Protein Albumin Triglycerides Cholesterol LDL Cholesterol Direct HDL Cholesterol Urine WBC (Auto) Urine Creatinine Urine Total Protein Vancomycin Trough Rheumatoid Factor Complement C4 Miscellaneous Test Crossmatch See Detail 09/11/16 09/11/16 09/11/16 05:10 05:10 05:17 WBC 28.4 H RBC Hgb 9.2 L Hct 29.3 L D MCV 73 L MCH 23 L MCHC RDW 18.9 H Plt Count 452 H Lymph % (Auto) [place] % (Auto) Lymph # [place] # Baso # Seg Neutrophils % Seg Neuts % (Manual) 89.5 H Lymphocytes % (Manual) 2.0 L Monocytes % (Manual) Eosinophils % (Manual) Basophils % (Manual) Nucleated RBC % Seg Neutrophils # Seg Neutrophils # Man 25.4 H Lymphocytes # (Manual) 0.6 L Monocytes # (Manual) 1.3 H Eosinophils # (Manual) PT INR Fibrinogen dRVVT Confirm Interp Factor V Activity POC ABG pH POC ABG pCO2 POC ABG pO2 Sodium 136 L Potassium Chloride Carbon Dioxide 18 L BUN 107 H Creatinine 2.6 H Glucose 187 H POC Glucose 230 H Lactic Acid Calcium 8.3 L Phosphorus Magnesium Direct Bilirubin ALT Alkaline Phosphatase Troponin T C-Reactive Protein Total Protein Albumin Triglycerides Cholesterol LDL Cholesterol Direct HDL Cholesterol Urine WBC (Auto) Urine Creatinine Urine Total Protein Vancomycin Trough Rheumatoid Factor Complement C4 Miscellaneous Test Crossmatch 09/11/16 09/11/16 09/11/16 05:55 12:02 17:32 WBC RBC Hgb Hct MCV MCH MCHC RDW Plt Count Lymph % (Auto) [place] % (Auto) Lymph # [place] # Baso # Seg Neutrophils % Seg Neuts % (Manual) Lymphocytes % (Manual) Monocytes % (Manual) Eosinophils % (Manual) Basophils % (Manual) Nucleated RBC % Seg Neutrophils # Seg Neutrophils # Man Lymphocytes # (Manual) Monocytes # (Manual) Eosinophils # (Manual) PT INR Fibrinogen dRVVT Confirm Interp Factor V Activity POC ABG pH POC ABG pCO2 33.8 L POC ABG pO2 Sodium Potassium Chloride Carbon Dioxide BUN Creatinine Glucose POC Glucose 191 H 239 H Lactic Acid Calcium Phosphorus Magnesium Direct Bilirubin ALT Alkaline Phosphatase Troponin T C-Reactive Protein Total Protein Albumin Triglycerides Cholesterol LDL Cholesterol Direct HDL Cholesterol Urine WBC (Auto) Urine Creatinine Urine Total Protein Vancomycin Trough Rheumatoid Factor Complement C4 Miscellaneous Test Crossmatch 09/11/16 09/12/16 09/12/16 23:52 05:09 05:32 WBC RBC Hgb Hct MCV MCH MCHC RDW Plt Count Lymph % (Auto) [place] % (Auto) Lymph # [place] # Baso # Seg Neutrophils % Seg Neuts % (Manual) Lymphocytes % (Manual) Monocytes % (Manual) Eosinophils % (Manual) Basophils % (Manual) Nucleated RBC % Seg Neutrophils # Seg Neutrophils # Man Lymphocytes # (Manual) Monocytes # (Manual) Eosinophils # (Manual) PT INR Fibrinogen dRVVT Confirm Interp Factor V Activity POC ABG pH POC ABG pCO2 34.6 L POC ABG pO2 Sodium Potassium Chloride Carbon Dioxide BUN Creatinine Glucose POC Glucose 265 H 184 H Lactic Acid Calcium Phosphorus Magnesium Direct Bilirubin ALT Alkaline Phosphatase Troponin T C-Reactive Protein Total Protein Albumin Triglycerides Cholesterol LDL Cholesterol Direct HDL Cholesterol Urine WBC (Auto) Urine Creatinine Urine Total Protein Vancomycin Trough Rheumatoid Factor Complement C4 Miscellaneous Test Crossmatch 09/12/16 09/12/16 09/12/16 06:45 06:45 07:22 WBC 31.7 H RBC 3.54 L Hgb 8.3 L Hct 25.9 L MCV 73 L MCH 23 L MCHC RDW 18.9 H Plt Count Lymph % (Auto) [place] % (Auto) Lymph # [place] # Baso # Seg Neutrophils % Seg Neuts % (Manual) 88.5 H Lymphocytes % (Manual) 4.5 L Monocytes % (Manual) Eosinophils % (Manual) Basophils % (Manual) Nucleated RBC % Seg Neutrophils # Seg Neutrophils # Man 28.1 H Lymphocytes # (Manual) Monocytes # (Manual) 1.0 H Eosinophils # (Manual) PT INR Fibrinogen dRVVT Confirm Interp Factor V Activity POC ABG pH POC ABG pCO2 POC ABG pO2 Sodium Potassium Chloride Carbon Dioxide 20 L BUN 115 H Creatinine 2.7 H Glucose 165 H POC Glucose Lactic Acid Calcium 8.0 L Phosphorus Magnesium Direct Bilirubin ALT Alkaline Phosphatase Troponin T C-Reactive Protein Total Protein Albumin Triglycerides 217 H Cholesterol LDL Cholesterol Direct HDL Cholesterol Urine WBC (Auto) Urine Creatinine Urine Total Protein Vancomycin Trough Rheumatoid Factor Complement C4 Miscellaneous Test Crossmatch 09/12/16 09/12/16 09/12/16 07:22 09:59 12:21 WBC RBC Hgb Hct MCV MCH MCHC RDW Plt Count Lymph % (Auto) [place] % (Auto) Lymph # [place] # Baso # Seg Neutrophils % Seg Neuts % (Manual) Lymphocytes % (Manual) Monocytes % (Manual) Eosinophils % (Manual) Basophils % (Manual) Nucleated RBC % Seg Neutrophils # Seg Neutrophils # Man Lymphocytes # (Manual) Monocytes # (Manual) Eosinophils # (Manual) PT INR Fibrinogen dRVVT Confirm Interp Positive H Factor V Activity POC ABG pH POC ABG pCO2 POC ABG pO2 Sodium Potassium Chloride Carbon Dioxide BUN Creatinine Glucose POC Glucose 224 H Lactic Acid Calcium Phosphorus Magnesium Direct Bilirubin ALT Alkaline Phosphatase Troponin T C-Reactive Protein 1.70 H Total Protein Albumin Triglycerides Cholesterol LDL Cholesterol Direct HDL Cholesterol Urine WBC (Auto) Urine Creatinine Urine Total Protein Vancomycin Trough Rheumatoid Factor Complement C4 Miscellaneous Test Crossmatch 09/12/16 09/12/16 09/13/16 16:51 23:28 04:00 WBC 45.0 H* RBC Hgb 9.4 L Hct MCV 75 L MCH 23 L MCHC RDW 19.0 H Plt Count 470 H Lymph % (Auto) [place] % (Auto) Lymph # [place] # Baso # Seg Neutrophils % Seg Neuts % (Manual) 89.0 H Lymphocytes % (Manual) 5.0 L Monocytes % (Manual) Eosinophils % (Manual) Basophils % (Manual) Nucleated RBC % Seg Neutrophils # Seg Neutrophils # Man 40.1 H Lymphocytes # (Manual) Monocytes # (Manual) Eosinophils # (Manual) PT INR Fibrinogen dRVVT Confirm Interp Factor V Activity POC ABG pH POC ABG pCO2 POC ABG pO2 Sodium Potassium Chloride Carbon Dioxide BUN Creatinine Glucose POC Glucose 169 H 150 H Lactic Acid Calcium Phosphorus Magnesium Direct Bilirubin ALT Alkaline Phosphatase Troponin T C-Reactive Protein Total Protein Albumin Triglycerides Cholesterol LDL Cholesterol Direct HDL Cholesterol Urine WBC (Auto) Urine Creatinine Urine Total Protein Vancomycin Trough Rheumatoid Factor Complement C4 Miscellaneous Test Crossmatch 09/13/16 09/13/16 09/13/16 04:00 11:26 17:31 WBC RBC Hgb Hct MCV MCH MCHC RDW Plt Count Lymph % (Auto) [place] % (Auto) Lymph # [place] # Baso # Seg Neutrophils % Seg Neuts % (Manual) Lymphocytes % (Manual) Monocytes % (Manual) Eosinophils % (Manual) Basophils % (Manual) Nucleated RBC % Seg Neutrophils # Seg Neutrophils # Man Lymphocytes # (Manual) Monocytes # (Manual) Eosinophils # (Manual) PT INR Fibrinogen dRVVT Confirm Interp Factor V Activity POC ABG pH POC ABG pCO2 POC ABG pO2 Sodium Potassium Chloride Carbon Dioxide 20 L BUN 116 H Creatinine 3.0 H Glucose 172 H POC Glucose 140 H 183 H Lactic Acid Calcium Phosphorus Magnesium Direct Bilirubin ALT Alkaline Phosphatase Troponin T C-Reactive Protein Total Protein 6.2 L Albumin 2.9 L Triglycerides Cholesterol LDL Cholesterol Direct HDL Cholesterol Urine WBC (Auto) Urine Creatinine Urine Total Protein Vancomycin Trough Rheumatoid Factor Complement C4 Miscellaneous Test Crossmatch 09/13/16 09/14/16 09/14/16 23:23 04:06 04:07 WBC 29.4 H RBC Hgb 8.9 L Hct 27.3 L MCV 75 L MCH 24 L MCHC RDW 19.1 H Plt Count Lymph % (Auto) [place] % (Auto) Lymph # [place] # Baso # Seg Neutrophils % Seg Neuts % (Manual) 84.0 H Lymphocytes % (Manual) 6.0 L Monocytes % (Manual) 9.0 H Eosinophils % (Manual) Basophils % (Manual) Nucleated RBC % Seg Neutrophils # Seg Neutrophils # Man 24.7 H Lymphocytes # (Manual) Monocytes # (Manual) 2.6 H Eosinophils # (Manual) PT INR Fibrinogen dRVVT Confirm Interp Factor V Activity POC ABG pH 7.342 L POC ABG pCO2 POC ABG pO2 116 H Sodium Potassium Chloride Carbon Dioxide BUN Creatinine Glucose POC Glucose 154 H Lactic Acid Calcium Phosphorus Magnesium Direct Bilirubin ALT Alkaline Phosphatase Troponin T C-Reactive Protein Total Protein Albumin Triglycerides Cholesterol LDL Cholesterol Direct HDL Cholesterol Urine WBC (Auto) Urine Creatinine Urine Total Protein Vancomycin Trough Rheumatoid Factor Complement C4 Miscellaneous Test Crossmatch 09/14/16 09/14/16 09/14/16 04:07 05:29 12:19 WBC RBC Hgb Hct MCV MCH MCHC RDW Plt Count Lymph % (Auto) [place] % (Auto) Lymph # [place] # Baso # Seg Neutrophils % Seg Neuts % (Manual) Lymphocytes % (Manual) Monocytes % (Manual) Eosinophils % (Manual) Basophils % (Manual) Nucleated RBC % Seg Neutrophils # Seg Neutrophils # Man Lymphocytes # (Manual) Monocytes # (Manual) Eosinophils # (Manual) PT INR Fibrinogen dRVVT Confirm Interp Factor V Activity POC ABG pH POC ABG pCO2 POC ABG pO2 Sodium 136 L Potassium Chloride Carbon Dioxide 18 L BUN 121 H Creatinine 2.8 H Glucose 214 H POC Glucose 239 H 181 H Lactic Acid Calcium Phosphorus Magnesium Direct Bilirubin ALT Alkaline Phosphatase Troponin T C-Reactive Protein Total Protein Albumin Triglycerides Cholesterol LDL Cholesterol Direct HDL Cholesterol Urine WBC (Auto) Urine Creatinine Urine Total Protein Vancomycin Trough Rheumatoid Factor Complement C4 Miscellaneous Test Crossmatch 09/14/16 09/14/16 09/15/16 18:12 23:37 05:00 WBC 26.1 H RBC 3.05 L Hgb 7.2 L Hct 22.9 L MCV 75 L MCH 24 L MCHC RDW 19.0 H Plt Count Lymph % (Auto) [place] % (Auto) Lymph # [place] # Baso # Seg Neutrophils % Seg Neuts % (Manual) Lymphocytes % (Manual) Monocytes % (Manual) Eosinophils % (Manual) Basophils % (Manual) Nucleated RBC % Seg Neutrophils # Seg Neutrophils # Man Lymphocytes # (Manual) Monocytes # (Manual) Eosinophils # (Manual) PT INR Fibrinogen dRVVT Confirm Interp Factor V Activity POC ABG pH POC ABG pCO2 POC ABG pO2 Sodium Potassium Chloride Carbon Dioxide BUN Creatinine Glucose POC Glucose 266 H 154 H Lactic Acid Calcium Phosphorus Magnesium Direct Bilirubin ALT Alkaline Phosphatase Troponin T C-Reactive Protein Total Protein Albumin Triglycerides Cholesterol LDL Cholesterol Direct HDL Cholesterol Urine WBC (Auto) Urine Creatinine Urine Total Protein Vancomycin Trough Rheumatoid Factor Complement C4 Miscellaneous Test Crossmatch 09/15/16 09/15/16 09/15/16 05:00 05:17 12:45 WBC RBC Hgb Hct MCV MCH MCHC RDW Plt Count Lymph % (Auto) [place] % (Auto) Lymph # [place] # Baso # Seg Neutrophils % Seg Neuts % (Manual) Lymphocytes % (Manual) Monocytes % (Manual) Eosinophils % (Manual) Basophils % (Manual) Nucleated RBC % Seg Neutrophils # Seg Neutrophils # Man Lymphocytes # (Manual) Monocytes # (Manual) Eosinophils # (Manual) PT INR Fibrinogen dRVVT Confirm Interp Factor V Activity POC ABG pH POC ABG pCO2 POC ABG pO2 Sodium Potassium 5.2 H Chloride Carbon Dioxide 18 L BUN 139 H Creatinine 3.7 H Glucose 227 H POC Glucose 226 H 244 H Lactic Acid Calcium 8.3 L Phosphorus Magnesium Direct Bilirubin ALT Alkaline Phosphatase Troponin T C-Reactive Protein Total Protein Albumin Triglycerides Cholesterol LDL Cholesterol Direct HDL Cholesterol Urine WBC (Auto) Urine Creatinine Urine Total Protein Vancomycin Trough Rheumatoid Factor Complement C4 Miscellaneous Test Crossmatch 09/15/16 09/15/16 09/15/16 14:32 17:33 23:35 WBC RBC Hgb Hct MCV MCH MCHC RDW Plt Count Lymph % (Auto) [place] % (Auto) Lymph # [place] # Baso # Seg Neutrophils % Seg Neuts % (Manual) Lymphocytes % (Manual) Monocytes % (Manual) Eosinophils % (Manual) Basophils % (Manual) Nucleated RBC % Seg Neutrophils # Seg Neutrophils # Man Lymphocytes # (Manual) Monocytes # (Manual) Eosinophils # (Manual) PT INR Fibrinogen dRVVT Confirm Interp Factor V Activity POC ABG pH POC ABG pCO2 27.7 L POC ABG pO2 120 H Sodium Potassium Chloride Carbon Dioxide BUN Creatinine Glucose POC Glucose 232 H 167 H Lactic Acid Calcium Phosphorus Magnesium Direct Bilirubin ALT Alkaline Phosphatase Troponin T C-Reactive Protein Total Protein Albumin Triglycerides Cholesterol LDL Cholesterol Direct HDL Cholesterol Urine WBC (Auto) Urine Creatinine Urine Total Protein Vancomycin Trough Rheumatoid Factor Complement C4 Miscellaneous Test Crossmatch 09/16/16 09/16/16 09/16/16 03:58 10:27 10:27 WBC 19.0 H RBC 2.77 L Hgb 6.5 L Hct 20.9 L MCV 76 L MCH 23 L MCHC RDW 19.3 H Plt Count Lymph % (Auto) 11.0 L [place] % (Auto) Lymph # [place] # 1.1 H Baso # Seg Neutrophils % 82.5 H Seg Neuts % (Manual) Lymphocytes % (Manual) Monocytes % (Manual) Eosinophils % (Manual) Basophils % (Manual) Nucleated RBC % Seg Neutrophils # 15.7 H Seg Neutrophils # Man Lymphocytes # (Manual) Monocytes # (Manual) Eosinophils # (Manual) PT INR Fibrinogen dRVVT Confirm Interp Factor V Activity POC ABG pH POC ABG pCO2 POC ABG pO2 Sodium Potassium Chloride 109.3 H Carbon Dioxide 18 L BUN 139 H Creatinine 4.1 H Glucose 144 H POC Glucose 146 H Lactic Acid Calcium 8.1 L Phosphorus Magnesium Direct Bilirubin ALT Alkaline Phosphatase Troponin T C-Reactive Protein Total Protein Albumin Triglycerides Cholesterol LDL Cholesterol Direct HDL Cholesterol Urine WBC (Auto) Urine Creatinine Urine Total Protein Vancomycin Trough Rheumatoid Factor Complement C4 Miscellaneous Test Crossmatch 09/16/16 09/16/16 09/16/16 12:04 12:10 13:55 WBC RBC Hgb Hct MCV MCH MCHC RDW Plt Count Lymph % (Auto) [place] % (Auto) Lymph # [place] # Baso # Seg Neutrophils % Seg Neuts % (Manual) Lymphocytes % (Manual) Monocytes % (Manual) Eosinophils % (Manual) Basophils % (Manual) Nucleated RBC % Seg Neutrophils # Seg Neutrophils # Man Lymphocytes # (Manual) Monocytes # (Manual) Eosinophils # (Manual) PT INR Fibrinogen dRVVT Confirm Interp Factor V Activity POC ABG pH POC ABG pCO2 32.9 L POC ABG pO2 Sodium Potassium Chloride Carbon Dioxide BUN Creatinine Glucose POC Glucose 185 H Lactic Acid Calcium Phosphorus Magnesium Direct Bilirubin ALT Alkaline Phosphatase Troponin T C-Reactive Protein Total Protein Albumin Triglycerides Cholesterol LDL Cholesterol Direct HDL Cholesterol Urine WBC (Auto) Urine Creatinine Urine Total Protein Vancomycin Trough Rheumatoid Factor Complement C4 Miscellaneous Test Crossmatch See Detail 09/16/16 09/16/16 09/16/16 17:55 19:19 23:48 WBC RBC Hgb Hct MCV MCH MCHC RDW Plt Count Lymph % (Auto) [place] % (Auto) Lymph # [place] # Baso # Seg Neutrophils % Seg Neuts % (Manual) Lymphocytes % (Manual) Monocytes % (Manual) Eosinophils % (Manual) Basophils % (Manual) Nucleated RBC % Seg Neutrophils # Seg Neutrophils # Man Lymphocytes # (Manual) Monocytes # (Manual) Eosinophils # (Manual) PT INR Fibrinogen dRVVT Confirm Interp Factor V Activity POC ABG pH POC ABG pCO2 POC ABG pO2 Sodium Potassium Chloride Carbon Dioxide BUN Creatinine Glucose POC Glucose 222 H 107 H Lactic Acid Calcium Phosphorus Magnesium Direct Bilirubin ALT Alkaline Phosphatase Troponin T C-Reactive Protein Total Protein Albumin Triglycerides Cholesterol LDL Cholesterol Direct HDL Cholesterol Urine WBC (Auto) Urine Creatinine 47.4 H Urine Total Protein 16 H Vancomycin Trough Rheumatoid Factor Complement C4 Miscellaneous Test Crossmatch 09/17/16 09/17/16 09/17/16 03:45 03:45 04:55 WBC 19.6 H RBC 3.41 L Hgb 8.5 L Hct 26.7 L MCV 78 L MCH 25 L MCHC RDW 19.9 H Plt Count Lymph % (Auto) 9.3 L [place] % (Auto) Lymph # [place] # 1.2 H Baso # Seg Neutrophils % 83.9 H Seg Neuts % (Manual) Lymphocytes % (Manual) Monocytes % (Manual) Eosinophils % (Manual) Basophils % (Manual) Nucleated RBC % Seg Neutrophils # 16.4 H Seg Neutrophils # Man Lymphocytes # (Manual) Monocytes # (Manual) Eosinophils # (Manual) PT INR Fibrinogen dRVVT Confirm Interp Factor V Activity POC ABG pH POC ABG pCO2 POC ABG pO2 Sodium 146 H Potassium 5.1 H Chloride 110.9 H Carbon Dioxide 16 L BUN 146 H Creatinine 4.0 H Glucose 108 H POC Glucose 133 H Lactic Acid Calcium Phosphorus Magnesium 3.00 H Direct Bilirubin ALT Alkaline Phosphatase Troponin T C-Reactive Protein Total Protein Albumin Triglycerides Cholesterol LDL Cholesterol Direct HDL Cholesterol Urine WBC (Auto) Urine Creatinine Urine Total Protein Vancomycin Trough Rheumatoid Factor Complement C4 Miscellaneous Test Crossmatch 09/17/16 09/17/16 09/17/16 11:15 17:33 23:47 WBC RBC Hgb Hct MCV MCH MCHC RDW Plt Count Lymph % (Auto) [place] % (Auto) Lymph # [place] # Baso # Seg Neutrophils % Seg Neuts % (Manual) Lymphocytes % (Manual) Monocytes % (Manual) Eosinophils % (Manual) Basophils % (Manual) Nucleated RBC % Seg Neutrophils # Seg Neutrophils # Man Lymphocytes # (Manual) Monocytes # (Manual) Eosinophils # (Manual) PT INR Fibrinogen dRVVT Confirm Interp Factor V Activity POC ABG pH POC ABG pCO2 POC ABG pO2 Sodium Potassium Chloride Carbon Dioxide BUN Creatinine Glucose POC Glucose 176 H 246 H 148 H Lactic Acid Calcium Phosphorus Magnesium Direct Bilirubin ALT Alkaline Phosphatase Troponin T C-Reactive Protein Total Protein Albumin Triglycerides Cholesterol LDL Cholesterol Direct HDL Cholesterol Urine WBC (Auto) Urine Creatinine Urine Total Protein Vancomycin Trough Rheumatoid Factor Complement C4 Miscellaneous Test Crossmatch 09/18/16 09/18/16 09/18/16 05:33 08:31 08:31 WBC 18.0 H RBC 3.17 L Hgb 9.0 L Hct 25.7 L MCV MCH MCHC 35 H RDW 20.4 H Plt Count Lymph % (Auto) [place] % (Auto) Lymph # [place] # Baso # Seg Neutrophils % Seg Neuts % (Manual) Lymphocytes % (Manual) Monocytes % (Manual) Eosinophils % (Manual) Basophils % (Manual) Nucleated RBC % Seg Neutrophils # Seg Neutrophils # Man Lymphocytes # (Manual) Monocytes # (Manual) Eosinophils # (Manual) PT INR Fibrinogen dRVVT Confirm Interp Factor V Activity POC ABG pH POC ABG pCO2 POC ABG pO2 Sodium Potassium Chloride Carbon Dioxide 15 L BUN 124 H Creatinine 3.8 H Glucose POC Glucose 120 H Lactic Acid Calcium 8.1 L Phosphorus Magnesium Direct Bilirubin ALT Alkaline Phosphatase Troponin T C-Reactive Protein Total Protein Albumin Triglycerides Cholesterol LDL Cholesterol Direct HDL Cholesterol Urine WBC (Auto) Urine Creatinine Urine Total Protein Vancomycin Trough Rheumatoid Factor Complement C4 Miscellaneous Test Crossmatch 09/18/16 09/18/16 09/18/16 12:03 15:34 17:50 WBC RBC Hgb Hct MCV MCH MCHC RDW Plt Count Lymph % (Auto) [place] % (Auto) Lymph # [place] # Baso # Seg Neutrophils % Seg Neuts % (Manual) Lymphocytes % (Manual) Monocytes % (Manual) Eosinophils % (Manual) Basophils % (Manual) Nucleated RBC % Seg Neutrophils # Seg Neutrophils # Man Lymphocytes # (Manual) Monocytes # (Manual) Eosinophils # (Manual) PT INR Fibrinogen dRVVT Confirm Interp Factor V Activity POC ABG pH POC ABG pCO2 25.7 L POC ABG pO2 66 L Sodium Potassium Chloride Carbon Dioxide BUN Creatinine Glucose POC Glucose 156 H 220 H Lactic Acid Calcium Phosphorus Magnesium Direct Bilirubin ALT Alkaline Phosphatase Troponin T C-Reactive Protein Total Protein Albumin Triglycerides Cholesterol LDL Cholesterol Direct HDL Cholesterol Urine WBC (Auto) Urine Creatinine Urine Total Protein Vancomycin Trough Rheumatoid Factor Complement C4 Miscellaneous Test Crossmatch 09/19/16 09/19/16 09/19/16 06:21 09:50 09:50 WBC 17.1 H RBC 3.49 L Hgb 9.0 L Hct 28.1 L MCV MCH 26 L MCHC RDW 20.8 H Plt Count Lymph % (Auto) 11.5 L [place] % (Auto) 7.5 H Lymph # [place] # 1.3 H Baso # Seg Neutrophils % 79.8 H Seg Neuts % (Manual) Lymphocytes % (Manual) Monocytes % (Manual) Eosinophils % (Manual) Basophils % (Manual) Nucleated RBC % Seg Neutrophils # 13.7 H Seg Neutrophils # Man Lymphocytes # (Manual) Monocytes # (Manual) Eosinophils # (Manual) PT INR Fibrinogen dRVVT Confirm Interp Factor V Activity POC ABG pH POC ABG pCO2 POC ABG pO2 Sodium Potassium Chloride 108.6 H Carbon Dioxide 15 L BUN 125 H Creatinine 4.1 H Glucose 124 H POC Glucose 119 H Lactic Acid Calcium Phosphorus Magnesium Direct Bilirubin ALT Alkaline Phosphatase Troponin T C-Reactive Protein Total Protein Albumin Triglycerides Cholesterol LDL Cholesterol Direct HDL Cholesterol Urine WBC (Auto) Urine Creatinine Urine Total Protein Vancomycin Trough Rheumatoid Factor Complement C4 Miscellaneous Test Crossmatch 09/19/16 09/19/16 09/19/16 11:25 17:53 23:36 WBC RBC Hgb Hct MCV MCH MCHC RDW Plt Count Lymph % (Auto) [place] % (Auto) Lymph # [place] # Baso # Seg Neutrophils % Seg Neuts % (Manual) Lymphocytes % (Manual) Monocytes % (Manual) Eosinophils % (Manual) Basophils % (Manual) Nucleated RBC % Seg Neutrophils # Seg Neutrophils # Man Lymphocytes # (Manual) Monocytes # (Manual) Eosinophils # (Manual) PT INR Fibrinogen dRVVT Confirm Interp Factor V Activity POC ABG pH POC ABG pCO2 POC ABG pO2 Sodium Potassium Chloride Carbon Dioxide BUN Creatinine Glucose POC Glucose 160 H 245 H 121 H Lactic Acid Calcium Phosphorus Magnesium Direct Bilirubin ALT Alkaline Phosphatase Troponin T C-Reactive Protein Total Protein Albumin Triglycerides Cholesterol LDL Cholesterol Direct HDL Cholesterol Urine WBC (Auto) Urine Creatinine Urine Total Protein Vancomycin Trough Rheumatoid Factor Complement C4 Miscellaneous Test Crossmatch 09/20/16 09/20/16 09/20/16 04:10 04:10 04:10 WBC 17.0 H RBC 3.21 L Hgb 8.2 L Hct 25.5 L MCV MCH 26 L MCHC RDW 20.9 H Plt Count Lymph % (Auto) [place] % (Auto) Lymph # [place] # Baso # Seg Neutrophils % Seg Neuts % (Manual) Lymphocytes % (Manual) Monocytes % (Manual) Eosinophils % (Manual) Basophils % (Manual) Nucleated RBC % Seg Neutrophils # Seg Neutrophils # Man Lymphocytes # (Manual) Monocytes # (Manual) Eosinophils # (Manual) PT INR Fibrinogen dRVVT Confirm Interp Factor V Activity POC ABG pH POC ABG pCO2 POC ABG pO2 Sodium Potassium Chloride 111.0 H Carbon Dioxide 16 L BUN 129 H Creatinine 3.7 H Glucose 115 H POC Glucose Lactic Acid Calcium 8.2 L Phosphorus Magnesium Direct Bilirubin ALT Alkaline Phosphatase Troponin T C-Reactive Protein Total Protein Albumin Triglycerides 243 H Cholesterol LDL Cholesterol Direct HDL Cholesterol Urine WBC (Auto) Urine Creatinine Urine Total Protein Vancomycin Trough Rheumatoid Factor Complement C4 Miscellaneous Test Crossmatch 09/20/16 09/20/16 09/20/16 05:40 11:52 16:50 WBC RBC Hgb Hct MCV MCH MCHC RDW Plt Count Lymph % (Auto) [place] % (Auto) Lymph # [place] # Baso # Seg Neutrophils % Seg Neuts % (Manual) Lymphocytes % (Manual) Monocytes % (Manual) Eosinophils % (Manual) Basophils % (Manual) Nucleated RBC % Seg Neutrophils # Seg Neutrophils # Man Lymphocytes # (Manual) Monocytes # (Manual) Eosinophils # (Manual) PT INR Fibrinogen dRVVT Confirm Interp Factor V Activity POC ABG pH POC ABG pCO2 POC ABG pO2 Sodium Potassium Chloride Carbon Dioxide BUN Creatinine Glucose POC Glucose 131 H 183 H 236 H Lactic Acid Calcium Phosphorus Magnesium Direct Bilirubin ALT Alkaline Phosphatase Troponin T C-Reactive Protein Total Protein Albumin Triglycerides Cholesterol LDL Cholesterol Direct HDL Cholesterol Urine WBC (Auto) Urine Creatinine Urine Total Protein Vancomycin Trough Rheumatoid Factor Complement C4 Miscellaneous Test Crossmatch 09/20/16 09/21/16 09/21/16 23:51 03:30 04:44 WBC RBC Hgb Hct MCV MCH MCHC RDW Plt Count Lymph % (Auto) [place] % (Auto) Lymph # [place] # Baso # Seg Neutrophils % Seg Neuts % (Manual) Lymphocytes % (Manual) Monocytes % (Manual) Eosinophils % (Manual) Basophils % (Manual) Nucleated RBC % Seg Neutrophils # Seg Neutrophils # Man Lymphocytes # (Manual) Monocytes # (Manual) Eosinophils # (Manual) PT INR Fibrinogen dRVVT Confirm Interp Factor V Activity POC ABG pH POC ABG pCO2 POC ABG pO2 Sodium Potassium Chloride Carbon Dioxide BUN Creatinine Glucose POC Glucose 114 H 141 H Lactic Acid Calcium Phosphorus Magnesium 2.70 H Direct Bilirubin ALT Alkaline Phosphatase Troponin T C-Reactive Protein Total Protein Albumin Triglycerides Cholesterol LDL Cholesterol Direct HDL Cholesterol Urine WBC (Auto) Urine Creatinine Urine Total Protein Vancomycin Trough Rheumatoid Factor Complement C4 Miscellaneous Test Crossmatch 09/21/16 09/21/16 09/21/16 07:45 07:45 10:01 WBC 13.8 H RBC 2.94 L Hgb 7.5 L Hct 23.5 L MCV MCH 26 L MCHC RDW 21.2 H Plt Count Lymph % (Auto) 6.9 L [place] % (Auto) 9.4 H Lymph # 0.9 L [place] # 1.3 H Baso # Seg Neutrophils % 83.2 H Seg Neuts % (Manual) Lymphocytes % (Manual) Monocytes % (Manual) Eosinophils % (Manual) Basophils % (Manual) Nucleated RBC % Seg Neutrophils # 11.5 H Seg Neutrophils # Man Lymphocytes # (Manual) Monocytes # (Manual) Eosinophils # (Manual) PT INR Fibrinogen dRVVT Confirm Interp Factor V Activity POC ABG pH 7.308 L POC ABG pCO2 31.9 L POC ABG pO2 148 H Sodium 147 H Potassium Chloride 114.2 H Carbon Dioxide 15 L BUN 120 H Creatinine 3.9 H Glucose 156 H POC Glucose Lactic Acid Calcium 8.2 L Phosphorus Magnesium Direct Bilirubin ALT Alkaline Phosphatase Troponin T C-Reactive Protein Total Protein Albumin Triglycerides Cholesterol LDL Cholesterol Direct HDL Cholesterol Urine WBC (Auto) Urine Creatinine Urine Total Protein Vancomycin Trough Rheumatoid Factor Complement C4 Miscellaneous Test Crossmatch 09/21/16 09/21/16 09/21/16 12:00 12:03 13:00 WBC RBC Hgb Hct MCV MCH MCHC RDW Plt Count Lymph % (Auto) [place] % (Auto) Lymph # [place] # Baso # Seg Neutrophils % Seg Neuts % (Manual) Lymphocytes % (Manual) Monocytes % (Manual) Eosinophils % (Manual) Basophils % (Manual) Nucleated RBC % Seg Neutrophils # Seg Neutrophils # Man Lymphocytes # (Manual) Monocytes # (Manual) Eosinophils # (Manual) PT INR Fibrinogen dRVVT Confirm Interp Factor V Activity POC ABG pH POC ABG pCO2 POC ABG pO2 Sodium Potassium Chloride Carbon Dioxide BUN Creatinine Glucose POC Glucose 163 H Lactic Acid Calcium Phosphorus Magnesium Direct Bilirubin ALT Alkaline Phosphatase Troponin T C-Reactive Protein Total Protein Albumin Triglycerides Cholesterol LDL Cholesterol Direct HDL Cholesterol Urine WBC (Auto) Urine Creatinine 54.8 H Urine Total Protein Vancomycin Trough 2.3 L Rheumatoid Factor Complement C4 Miscellaneous Test Crossmatch 09/21/16 09/21/16 09/22/16 16:51 23:17 06:27 WBC RBC Hgb Hct MCV MCH MCHC RDW Plt Count Lymph % (Auto) [place] % (Auto) Lymph # [place] # Baso # Seg Neutrophils % Seg Neuts % (Manual) Lymphocytes % (Manual) Monocytes % (Manual) Eosinophils % (Manual) Basophils % (Manual) Nucleated RBC % Seg Neutrophils # Seg Neutrophils # Man Lymphocytes # (Manual) Monocytes # (Manual) Eosinophils # (Manual) PT INR Fibrinogen dRVVT Confirm Interp Factor V Activity POC ABG pH POC ABG pCO2 POC ABG pO2 Sodium Potassium Chloride Carbon Dioxide BUN Creatinine Glucose POC Glucose 206 H 114 H 115 H Lactic Acid Calcium Phosphorus Magnesium Direct Bilirubin ALT Alkaline Phosphatase Troponin T C-Reactive Protein Total Protein Albumin Triglycerides Cholesterol LDL Cholesterol Direct HDL Cholesterol Urine WBC (Auto) Urine Creatinine Urine Total Protein Vancomycin Trough Rheumatoid Factor Complement C4 Miscellaneous Test Crossmatch 09/22/16 09/22/16 09/22/16 07:50 07:50 12:00 WBC 17.8 H RBC 3.04 L Hgb 8.0 L Hct 24.7 L MCV MCH 26 L MCHC RDW 21.6 H Plt Count Lymph % (Auto) [place] % (Auto) Lymph # [place] # Baso # Seg Neutrophils % Seg Neuts % (Manual) Lymphocytes % (Manual) Monocytes % (Manual) Eosinophils % (Manual) Basophils % (Manual) Nucleated RBC % Seg Neutrophils # Seg Neutrophils # Man Lymphocytes # (Manual) Monocytes # (Manual) Eosinophils # (Manual) PT INR Fibrinogen dRVVT Confirm Interp Factor V Activity POC ABG pH POC ABG pCO2 POC ABG pO2 Sodium 150 H Potassium Chloride 118.2 H Carbon Dioxide 14 L BUN 111 H Creatinine 3.7 H Glucose 157 H POC Glucose 183 H Lactic Acid Calcium Phosphorus Magnesium Direct Bilirubin ALT Alkaline Phosphatase Troponin T C-Reactive Protein Total Protein Albumin Triglycerides Cholesterol LDL Cholesterol Direct HDL Cholesterol Urine WBC (Auto) Urine Creatinine Urine Total Protein Vancomycin Trough Rheumatoid Factor Complement C4 Miscellaneous Test Crossmatch 09/22/16 09/22/16 09/23/16 17:29 23:10 05:00 WBC 19.2 H RBC 3.13 L Hgb 8.0 L Hct 25.2 L MCV MCH 26 L MCHC RDW 22.1 H Plt Count Lymph % (Auto) [place] % (Auto) Lymph # [place] # Baso # Seg Neutrophils % Seg Neuts % (Manual) 92.0 H Lymphocytes % (Manual) 3.0 L Monocytes % (Manual) Eosinophils % (Manual) Basophils % (Manual) Nucleated RBC % Seg Neutrophils # Seg Neutrophils # Man 17.7 H Lymphocytes # (Manual) 0.6 L Monocytes # (Manual) Eosinophils # (Manual) PT INR Fibrinogen dRVVT Confirm Interp Factor V Activity POC ABG pH POC ABG pCO2 POC ABG pO2 Sodium Potassium Chloride Carbon Dioxide BUN Creatinine Glucose POC Glucose 197 H 169 H Lactic Acid Calcium Phosphorus Magnesium Direct Bilirubin ALT Alkaline Phosphatase Troponin T C-Reactive Protein Total Protein Albumin Triglycerides Cholesterol LDL Cholesterol Direct HDL Cholesterol Urine WBC (Auto) Urine Creatinine Urine Total Protein Vancomycin Trough Rheumatoid Factor Complement C4 Miscellaneous Test Crossmatch 09/23/16 09/23/16 09/23/16 05:00 05:00 05:10 WBC RBC Hgb Hct MCV MCH MCHC RDW Plt Count Lymph % (Auto) [place] % (Auto) Lymph # [place] # Baso # Seg Neutrophils % Seg Neuts % (Manual) Lymphocytes % (Manual) Monocytes % (Manual) Eosinophils % (Manual) Basophils % (Manual) Nucleated RBC % Seg Neutrophils # Seg Neutrophils # Man Lymphocytes # (Manual) Monocytes # (Manual) Eosinophils # (Manual) PT INR Fibrinogen dRVVT Confirm Interp Factor V Activity POC ABG pH POC ABG pCO2 POC ABG pO2 Sodium 147 H Potassium 3.2 L Chloride 115.7 H Carbon Dioxide 13 L BUN 111 H Creatinine 3.8 H Glucose 194 H POC Glucose 188 H Lactic Acid Calcium 7.3 L D Phosphorus Magnesium Direct Bilirubin ALT Alkaline Phosphatase Troponin T C-Reactive Protein 3.20 H Total Protein Albumin Triglycerides Cholesterol LDL Cholesterol Direct HDL Cholesterol Urine WBC (Auto) Urine Creatinine Urine Total Protein Vancomycin Trough Rheumatoid Factor Complement C4 Miscellaneous Test Crossmatch 09/23/16 09/23/16 09/23/16 11:37 12:29 18:01 WBC RBC Hgb Hct MCV MCH MCHC RDW Plt Count Lymph % (Auto) [place] % (Auto) Lymph # [place] # Baso # Seg Neutrophils % Seg Neuts % (Manual) Lymphocytes % (Manual) Monocytes % (Manual) Eosinophils % (Manual) Basophils % (Manual) Nucleated RBC % Seg Neutrophils # Seg Neutrophils # Man Lymphocytes # (Manual) Monocytes # (Manual) Eosinophils # (Manual) PT INR Fibrinogen dRVVT Confirm Interp Factor V Activity POC ABG pH POC ABG pCO2 18.9 L POC ABG pO2 143 H Sodium Potassium Chloride Carbon Dioxide BUN Creatinine Glucose POC Glucose 153 H 108 H Lactic Acid Calcium Phosphorus Magnesium Direct Bilirubin ALT Alkaline Phosphatase Troponin T C-Reactive Protein Total Protein Albumin Triglycerides Cholesterol LDL Cholesterol Direct HDL Cholesterol Urine WBC (Auto) Urine Creatinine Urine Total Protein Vancomycin Trough Rheumatoid Factor Complement C4 Miscellaneous Test Crossmatch 09/23/16 09/23/16 09/24/16 21:19 23:43 05:16 WBC RBC Hgb Hct MCV MCH MCHC RDW Plt Count Lymph % (Auto) [place] % (Auto) Lymph # [place] # Baso # Seg Neutrophils % Seg Neuts % (Manual) Lymphocytes % (Manual) Monocytes % (Manual) Eosinophils % (Manual) Basophils % (Manual) Nucleated RBC % Seg Neutrophils # Seg Neutrophils # Man Lymphocytes # (Manual) Monocytes # (Manual) Eosinophils # (Manual) PT INR Fibrinogen dRVVT Confirm Interp Factor V Activity POC ABG pH POC ABG pCO2 17.3 L POC ABG pO2 112 H Sodium Potassium Chloride Carbon Dioxide BUN Creatinine Glucose POC Glucose 143 H 164 H Lactic Acid Calcium Phosphorus Magnesium Direct Bilirubin ALT Alkaline Phosphatase Troponin T C-Reactive Protein Total Protein Albumin Triglycerides Cholesterol LDL Cholesterol Direct HDL Cholesterol Urine WBC (Auto) Urine Creatinine Urine Total Protein Vancomycin Trough Rheumatoid Factor Complement C4 Miscellaneous Test Crossmatch 09/24/16 09/24/16 09/24/16 05:21 11:58 17:06 WBC RBC Hgb Hct MCV MCH MCHC RDW Plt Count Lymph % (Auto) [place] % (Auto) Lymph # [place] # Baso # Seg Neutrophils % Seg Neuts % (Manual) Lymphocytes % (Manual) Monocytes % (Manual) Eosinophils % (Manual) Basophils % (Manual) Nucleated RBC % Seg Neutrophils # Seg Neutrophils # Man Lymphocytes # (Manual) Monocytes # (Manual) Eosinophils # (Manual) PT INR Fibrinogen dRVVT Confirm Interp Factor V Activity POC ABG pH POC ABG pCO2 POC ABG pO2 Sodium Potassium Chloride Carbon Dioxide 10 L BUN 103 H Creatinine 4.3 H Glucose 163 H POC Glucose 173 H 167 H Lactic Acid Calcium 6.5 L Phosphorus Magnesium Direct Bilirubin ALT Alkaline Phosphatase Troponin T C-Reactive Protein Total Protein Albumin Triglycerides Cholesterol LDL Cholesterol Direct HDL Cholesterol Urine WBC (Auto) Urine Creatinine Urine Total Protein Vancomycin Trough Rheumatoid Factor Complement C4 Miscellaneous Test Crossmatch 09/24/16 09/24/16 09/24/16 20:15 21:02 23:48 WBC RBC Hgb Hct MCV MCH MCHC RDW Plt Count Lymph % (Auto) [place] % (Auto) Lymph # [place] # Baso # Seg Neutrophils % Seg Neuts % (Manual) Lymphocytes % (Manual) Monocytes % (Manual) Eosinophils % (Manual) Basophils % (Manual) Nucleated RBC % Seg Neutrophils # Seg Neutrophils # Man Lymphocytes # (Manual) Monocytes # (Manual) Eosinophils # (Manual) PT INR Fibrinogen dRVVT Confirm Interp Factor V Activity POC ABG pH 7.288 L POC ABG pCO2 30.2 L 21.5 L POC ABG pO2 32 L 39 L Sodium Potassium Chloride Carbon Dioxide BUN Creatinine Glucose POC Glucose 109 H Lactic Acid Calcium Phosphorus Magnesium Direct Bilirubin ALT Alkaline Phosphatase Troponin T C-Reactive Protein Total Protein Albumin Triglycerides Cholesterol LDL Cholesterol Direct HDL Cholesterol Urine WBC (Auto) Urine Creatinine Urine Total Protein Vancomycin Trough Rheumatoid Factor Complement C4 Miscellaneous Test Crossmatch 09/25/16 09/25/16 09/25/16 04:20 04:20 04:20 WBC RBC 2.58 L Hgb 7.0 L Hct 21.0 L MCV MCH 27 L MCHC RDW 23.8 H Plt Count Lymph % (Auto) [place] % (Auto) Lymph # [place] # Baso # Seg Neutrophils % Seg Neuts % (Manual) Lymphocytes % (Manual) 12.0 L Monocytes % (Manual) Eosinophils % (Manual) 7.0 H Basophils % (Manual) 2.0 H Nucleated RBC % Seg Neutrophils # Seg Neutrophils # Man Lymphocytes # (Manual) 0.9 L Monocytes # (Manual) Eosinophils # (Manual) 0.5 H PT INR Fibrinogen dRVVT Confirm Interp Factor V Activity POC ABG pH POC ABG pCO2 POC ABG pO2 Sodium Potassium Chloride Carbon Dioxide 15 L BUN 72 H Creatinine 3.8 H Glucose POC Glucose Lactic Acid Calcium 6.0 L Phosphorus 4.60 H Magnesium 1.60 L Direct Bilirubin ALT Alkaline Phosphatase Troponin T C-Reactive Protein Total Protein Albumin Triglycerides Cholesterol LDL Cholesterol Direct HDL Cholesterol Urine WBC (Auto) Urine Creatinine Urine Total Protein Vancomycin Trough Rheumatoid Factor Complement C4 Miscellaneous Test Crossmatch 09/25/16 09/25/16 09/25/16 04:57 08:02 10:30 WBC RBC Hgb Hct MCV MCH MCHC RDW Plt Count Lymph % (Auto) [place] % (Auto) Lymph # [place] # Baso # Seg Neutrophils % Seg Neuts % (Manual) Lymphocytes % (Manual) Monocytes % (Manual) Eosinophils % (Manual) Basophils % (Manual) Nucleated RBC % Seg Neutrophils # Seg Neutrophils # Man Lymphocytes # (Manual) Monocytes # (Manual) Eosinophils # (Manual) PT INR Fibrinogen dRVVT Confirm Interp Factor V Activity POC ABG pH POC ABG pCO2 24.7 L POC ABG pO2 152 H Sodium Potassium Chloride Carbon Dioxide BUN Creatinine Glucose POC Glucose 113 H Lactic Acid Calcium Phosphorus Magnesium Direct Bilirubin ALT Alkaline Phosphatase Troponin T C-Reactive Protein Total Protein Albumin Triglycerides Cholesterol LDL Cholesterol Direct HDL Cholesterol Urine WBC (Auto) Urine Creatinine Urine Total Protein Vancomycin Trough Rheumatoid Factor Complement C4 Miscellaneous Test Crossmatch See Detail 09/25/16 09/25/16 09/25/16 12:05 17:44 23:47 WBC RBC Hgb Hct MCV MCH MCHC RDW Plt Count Lymph % (Auto) [place] % (Auto) Lymph # [place] # Baso # Seg Neutrophils % Seg Neuts % (Manual) Lymphocytes % (Manual) Monocytes % (Manual) Eosinophils % (Manual) Basophils % (Manual) Nucleated RBC % Seg Neutrophils # Seg Neutrophils # Man Lymphocytes # (Manual) Monocytes # (Manual) Eosinophils # (Manual) PT INR Fibrinogen dRVVT Confirm Interp Factor V Activity POC ABG pH POC ABG pCO2 POC ABG pO2 Sodium Potassium Chloride Carbon Dioxide BUN Creatinine Glucose POC Glucose 117 H 119 H 150 H Lactic Acid Calcium Phosphorus Magnesium Direct Bilirubin ALT Alkaline Phosphatase Troponin T C-Reactive Protein Total Protein Albumin Triglycerides Cholesterol LDL Cholesterol Direct HDL Cholesterol Urine WBC (Auto) Urine Creatinine Urine Total Protein Vancomycin Trough Rheumatoid Factor Complement C4 Miscellaneous Test Crossmatch 09/26/16 09/26/16 09/26/16 04:25 04:25 04:25 WBC RBC 2.65 L Hgb 7.4 L Hct 21.6 L MCV MCH MCHC RDW 22.5 H Plt Count Lymph % (Auto) [place] % (Auto) Lymph # [place] # Baso # Seg Neutrophils % Seg Neuts % (Manual) Lymphocytes % (Manual) 6.0 L Monocytes % (Manual) Eosinophils % (Manual) 11.0 H Basophils % (Manual) Nucleated RBC % Seg Neutrophils # Seg Neutrophils # Man Lymphocytes # (Manual) 0.4 L Monocytes # (Manual) Eosinophils # (Manual) 0.6 H PT INR Fibrinogen dRVVT Confirm Interp Factor V Activity POC ABG pH POC ABG pCO2 POC ABG pO2 Sodium Potassium Chloride 97.0 L Carbon Dioxide 19 L BUN 43 H Creatinine 2.6 H Glucose 130 H POC Glucose Lactic Acid 4.40 H* Calcium 6.7 L Phosphorus Magnesium Direct Bilirubin ALT Alkaline Phosphatase Troponin T C-Reactive Protein Total Protein Albumin Triglycerides Cholesterol LDL Cholesterol Direct HDL Cholesterol Urine WBC (Auto) Urine Creatinine Urine Total Protein Vancomycin Trough Rheumatoid Factor Complement C4 Miscellaneous Test Crossmatch 09/26/16 09/26/16 09/26/16 05:20 11:44 12:12 WBC RBC Hgb Hct MCV MCH MCHC RDW Plt Count Lymph % (Auto) [place] % (Auto) Lymph # [place] # Baso # Seg Neutrophils % Seg Neuts % (Manual) Lymphocytes % (Manual) Monocytes % (Manual) Eosinophils % (Manual) Basophils % (Manual) Nucleated RBC % Seg Neutrophils # Seg Neutrophils # Man Lymphocytes # (Manual) Monocytes # (Manual) Eosinophils # (Manual) PT INR Fibrinogen dRVVT Confirm Interp Factor V Activity POC ABG pH POC ABG pCO2 27.0 L POC ABG pO2 69 L Sodium Potassium Chloride Carbon Dioxide BUN Creatinine Glucose POC Glucose 121 H 128 H Lactic Acid Calcium Phosphorus Magnesium Direct Bilirubin ALT Alkaline Phosphatase Troponin T C-Reactive Protein Total Protein Albumin Triglycerides Cholesterol LDL Cholesterol Direct HDL Cholesterol Urine WBC (Auto) Urine Creatinine Urine Total Protein Vancomycin Trough Rheumatoid Factor Complement C4 Miscellaneous Test Crossmatch 09/26/16 09/26/16 09/27/16 18:31 23:40 08:20 WBC RBC Hgb Hct MCV MCH MCHC RDW Plt Count Lymph % (Auto) [place] % (Auto) Lymph # [place] # Baso # Seg Neutrophils % Seg Neuts % (Manual) Lymphocytes % (Manual) Monocytes % (Manual) Eosinophils % (Manual) Basophils % (Manual) Nucleated RBC % Seg Neutrophils # Seg Neutrophils # Man Lymphocytes # (Manual) Monocytes # (Manual) Eosinophils # (Manual) PT INR Fibrinogen dRVVT Confirm Interp Factor V Activity POC ABG pH POC ABG pCO2 POC ABG pO2 Sodium Potassium Chloride Carbon Dioxide BUN Creatinine Glucose POC Glucose 120 H 133 H Lactic Acid 4.10 H* Calcium Phosphorus Magnesium Direct Bilirubin ALT Alkaline Phosphatase Troponin T C-Reactive Protein Total Protein Albumin Triglycerides Cholesterol LDL Cholesterol Direct HDL Cholesterol Urine WBC (Auto) Urine Creatinine Urine Total Protein Vancomycin Trough Rheumatoid Factor Complement C4 Miscellaneous Test Crossmatch 09/27/16 09/27/16 09/27/16 11:23 15:00 18:15 WBC RBC Hgb Hct MCV MCH MCHC RDW Plt Count Lymph % (Auto) [place] % (Auto) Lymph # [place] # Baso # Seg Neutrophils % Seg Neuts % (Manual) Lymphocytes % (Manual) Monocytes % (Manual) Eosinophils % (Manual) Basophils % (Manual) Nucleated RBC % Seg Neutrophils # Seg Neutrophils # Man Lymphocytes # (Manual) Monocytes # (Manual) Eosinophils # (Manual) PT INR Fibrinogen dRVVT Confirm Interp Factor V Activity POC ABG pH 7.459 H POC ABG pCO2 27.1 L POC ABG pO2 140 H Sodium Potassium Chloride Carbon Dioxide BUN Creatinine Glucose POC Glucose 114 H 127 H Lactic Acid Calcium Phosphorus Magnesium Direct Bilirubin ALT Alkaline Phosphatase Troponin T C-Reactive Protein Total Protein Albumin Triglycerides Cholesterol LDL Cholesterol Direct HDL Cholesterol Urine WBC (Auto) Urine Creatinine Urine Total Protein Vancomycin Trough Rheumatoid Factor Complement C4 Miscellaneous Test Crossmatch 09/27/16 09/27/16 09/28/16 Unknown Unknown 03:45 WBC RBC 2.49 L Hgb 6.8 L Hct 20.7 L MCV MCH 27 L MCHC RDW 22.1 H Plt Count Lymph % (Auto) [place] % (Auto) Lymph # [place] # Baso # Seg Neutrophils % Seg Neuts % (Manual) 32.0 L Lymphocytes % (Manual) 12.0 L Monocytes % (Manual) 11.0 H Eosinophils % (Manual) 10.0 H Basophils % (Manual) Nucleated RBC % Seg Neutrophils # Seg Neutrophils # Man Lymphocytes # (Manual) 1.0 L Monocytes # (Manual) 0.9 H Eosinophils # (Manual) 0.8 H PT INR Fibrinogen dRVVT Confirm Interp Factor V Activity POC ABG pH POC ABG pCO2 POC ABG pO2 Sodium 135 L 135 L Potassium 3.5 L Chloride 93.6 L 94.4 L Carbon Dioxide 17 L 21 L BUN 45 H 28 H Creatinine 3.3 H 2.5 H Glucose 106 H POC Glucose Lactic Acid Calcium 7.3 L 7.1 L Phosphorus Magnesium Direct Bilirubin ALT Alkaline Phosphatase Troponin T C-Reactive Protein Total Protein Albumin Triglycerides Cholesterol LDL Cholesterol Direct HDL Cholesterol Urine WBC (Auto) Urine Creatinine Urine Total Protein Vancomycin Trough Rheumatoid Factor Complement C4 Miscellaneous Test Crossmatch 09/28/16 09/28/16 09/28/16 03:45 07:25 11:58 WBC 13.3 H RBC 3.01 L Hgb 8.4 L Hct 25.0 L MCV MCH MCHC RDW 20.5 H Plt Count 128 L Lymph % (Auto) [place] % (Auto) Lymph # [place] # Baso # Seg Neutrophils % Seg Neuts % (Manual) Lymphocytes % (Manual) 7.0 L Monocytes % (Manual) Eosinophils % (Manual) 6.0 H Basophils % (Manual) Nucleated RBC % Seg Neutrophils # Seg Neutrophils # Man Lymphocytes # (Manual) 0.9 L Monocytes # (Manual) Eosinophils # (Manual) 0.8 H PT INR Fibrinogen dRVVT Confirm Interp Factor V Activity POC ABG pH POC ABG pCO2 POC ABG pO2 Sodium Potassium Chloride Carbon Dioxide BUN Creatinine Glucose POC Glucose 121 H Lactic Acid 4.50 H* Calcium Phosphorus Magnesium Direct Bilirubin ALT Alkaline Phosphatase Troponin T C-Reactive Protein Total Protein Albumin Triglycerides Cholesterol LDL Cholesterol Direct HDL Cholesterol Urine WBC (Auto) Urine Creatinine Urine Total Protein Vancomycin Trough Rheumatoid Factor Complement C4 Miscellaneous Test Crossmatch 09/29/16 09/29/16 09/29/16 06:45 06:45 06:45 WBC 14.9 H RBC 2.74 L Hgb 7.6 L Hct 23.2 L MCV MCH MCHC RDW 20.5 H Plt Count 81 L Lymph % (Auto) [place] % (Auto) Lymph # [place] # Baso # Seg Neutrophils % Seg Neuts % (Manual) 81.0 H Lymphocytes % (Manual) 4.0 L Monocytes % (Manual) Eosinophils % (Manual) Basophils % (Manual) Nucleated RBC % Seg Neutrophils # Seg Neutrophils # Man 12.1 H Lymphocytes # (Manual) 0.6 L Monocytes # (Manual) Eosinophils # (Manual) PT INR Fibrinogen dRVVT Confirm Interp Factor V Activity POC ABG pH POC ABG pCO2 POC ABG pO2 Sodium 133 L Potassium 3.4 L Chloride 92.5 L Carbon Dioxide 21 L BUN 33 H Creatinine 3.0 H Glucose POC Glucose Lactic Acid Calcium 6.6 L Phosphorus Magnesium 1.40 L Direct Bilirubin 0.9 H ALT Alkaline Phosphatase Troponin T C-Reactive Protein Total Protein 4.3 L Albumin 1.3 L Triglycerides Cholesterol LDL Cholesterol Direct HDL Cholesterol Urine WBC (Auto) Urine Creatinine Urine Total Protein Vancomycin Trough Rheumatoid Factor Complement C4 Miscellaneous Test Crossmatch 09/29/16 09/29/16 09/30/16 17:52 20:12 00:07 WBC RBC Hgb Hct MCV MCH MCHC RDW Plt Count Lymph % (Auto) [place] % (Auto) Lymph # [place] # Baso # Seg Neutrophils % Seg Neuts % (Manual) Lymphocytes % (Manual) Monocytes % (Manual) Eosinophils % (Manual) Basophils % (Manual) Nucleated RBC % Seg Neutrophils # Seg Neutrophils # Man Lymphocytes # (Manual) Monocytes # (Manual) Eosinophils # (Manual) PT INR Fibrinogen dRVVT Confirm Interp Factor V Activity POC ABG pH POC ABG pCO2 POC ABG pO2 Sodium Potassium Chloride Carbon Dioxide BUN Creatinine Glucose POC Glucose 50 L 51 L Lactic Acid Calcium Phosphorus Magnesium Direct Bilirubin ALT Alkaline Phosphatase Troponin T 0.204 H* C-Reactive Protein Total Protein Albumin Triglycerides Cholesterol 31 L LDL Cholesterol Direct 4 L HDL Cholesterol 3 L Urine WBC (Auto) Urine Creatinine Urine Total Protein Vancomycin Trough Rheumatoid Factor Complement C4 Miscellaneous Test Crossmatch 09/30/16 09/30/16 09/30/16 01:30 05:15 06:10 WBC RBC Hgb Hct MCV MCH MCHC RDW Plt Count Lymph % (Auto) [place] % (Auto) Lymph # [place] # Baso # Seg Neutrophils % Seg Neuts % (Manual) Lymphocytes % (Manual) Monocytes % (Manual) Eosinophils % (Manual) Basophils % (Manual) Nucleated RBC % Seg Neutrophils # Seg Neutrophils # Man Lymphocytes # (Manual) Monocytes # (Manual) Eosinophils # (Manual) PT INR Fibrinogen dRVVT Confirm Interp Factor V Activity POC ABG pH POC ABG pCO2 POC ABG pO2 Sodium 133 L Potassium 3.2 L Chloride 93.2 L Carbon Dioxide 19 L BUN 36 H Creatinine 3.2 H Glucose 104 H POC Glucose 167 H 146 H Lactic Acid Calcium 6.4 L Phosphorus Magnesium 1.60 L Direct Bilirubin ALT Alkaline Phosphatase Troponin T C-Reactive Protein Total Protein Albumin Triglycerides Cholesterol LDL Cholesterol Direct HDL Cholesterol Urine WBC (Auto) Urine Creatinine Urine Total Protein Vancomycin Trough Rheumatoid Factor Complement C4 Miscellaneous Test Crossmatch 09/30/16 09/30/16 09/30/16 11:26 13:39 18:38 WBC RBC Hgb Hct MCV MCH MCHC RDW Plt Count Lymph % (Auto) [place] % (Auto) Lymph # [place] # Baso # Seg Neutrophils % Seg Neuts % (Manual) Lymphocytes % (Manual) Monocytes % (Manual) Eosinophils % (Manual) Basophils % (Manual) Nucleated RBC % Seg Neutrophils # Seg Neutrophils # Man Lymphocytes # (Manual) Monocytes # (Manual) Eosinophils # (Manual) PT INR Fibrinogen dRVVT Confirm Interp Factor V Activity POC ABG pH 7.479 H POC ABG pCO2 29.8 L POC ABG pO2 117 H Sodium Potassium Chloride Carbon Dioxide BUN Creatinine Glucose POC Glucose 140 H 122 H Lactic Acid Calcium Phosphorus Magnesium Direct Bilirubin ALT Alkaline Phosphatase Troponin T C-Reactive Protein Total Protein Albumin Triglycerides Cholesterol LDL Cholesterol Direct HDL Cholesterol Urine WBC (Auto) Urine Creatinine Urine Total Protein Vancomycin Trough Rheumatoid Factor Complement C4 Miscellaneous Test Crossmatch 10/01/16 10/01/16 10/01/16 06:00 06:00 12:37 WBC 12.6 H RBC 2.75 L Hgb 7.3 L Hct 23.3 L MCV MCH 27 L MCHC RDW 20.6 H Plt Count 72 L Lymph % (Auto) [place] % (Auto) Lymph # [place] # Baso # Seg Neutrophils % Seg Neuts % (Manual) 31.0 L Lymphocytes % (Manual) 8.0 L Monocytes % (Manual) Eosinophils % (Manual) Basophils % (Manual) Nucleated RBC % 3.0 H Seg Neutrophils # Seg Neutrophils # Man Lymphocytes # (Manual) 1.0 L Monocytes # (Manual) Eosinophils # (Manual) PT INR Fibrinogen dRVVT Confirm Interp Factor V Activity POC ABG pH POC ABG pCO2 POC ABG pO2 Sodium 127 L Potassium Chloride 86.8 L Carbon Dioxide 20 L BUN 42 H Creatinine 3.5 H Glucose POC Glucose 65 L Lactic Acid Calcium 7.0 L Phosphorus Magnesium Direct Bilirubin ALT Alkaline Phosphatase Troponin T C-Reactive Protein Total Protein Albumin Triglycerides Cholesterol LDL Cholesterol Direct HDL Cholesterol Urine WBC (Auto) Urine Creatinine Urine Total Protein Vancomycin Trough Rheumatoid Factor Complement C4 Miscellaneous Test Crossmatch 10/01/16 10/01/16 10/02/16 17:39 23:32 00:59 WBC RBC Hgb Hct MCV MCH MCHC RDW Plt Count Lymph % (Auto) [place] % (Auto) Lymph # [place] # Baso # Seg Neutrophils % Seg Neuts % (Manual) Lymphocytes % (Manual) Monocytes % (Manual) Eosinophils % (Manual) Basophils % (Manual) Nucleated RBC % Seg Neutrophils # Seg Neutrophils # Man Lymphocytes # (Manual) Monocytes # (Manual) Eosinophils # (Manual) PT INR Fibrinogen dRVVT Confirm Interp Factor V Activity POC ABG pH POC ABG pCO2 POC ABG pO2 Sodium Potassium Chloride Carbon Dioxide BUN Creatinine Glucose POC Glucose 107 H 52 L 145 H Lactic Acid Calcium Phosphorus Magnesium Direct Bilirubin ALT Alkaline Phosphatase Troponin T C-Reactive Protein Total Protein Albumin Triglycerides Cholesterol LDL Cholesterol Direct HDL Cholesterol Urine WBC (Auto) Urine Creatinine Urine Total Protein Vancomycin Trough Rheumatoid Factor Complement C4 Miscellaneous Test Crossmatch 10/02/16 10/02/16 10/02/16 10:30 10:50 10:50 WBC 14.7 H RBC 2.76 L Hgb 7.4 L Hct 23.6 L MCV MCH 27 L MCHC RDW 20.2 H Plt Count 79 L Lymph % (Auto) [place] % (Auto) Lymph # [place] # Baso # Seg Neutrophils % Seg Neuts % (Manual) 86.0 H Lymphocytes % (Manual) 6.0 L Monocytes % (Manual) Eosinophils % (Manual) Basophils % (Manual) Nucleated RBC % Seg Neutrophils # Seg Neutrophils # Man 12.6 H Lymphocytes # (Manual) 0.9 L Monocytes # (Manual) Eosinophils # (Manual) PT INR Fibrinogen dRVVT Confirm Interp Factor V Activity POC ABG pH 7.486 H POC ABG pCO2 30.1 L POC ABG pO2 108 H Sodium 131 L Potassium 3.4 L Chloride 89.9 L Carbon Dioxide BUN 26 H Creatinine 2.6 H Glucose POC Glucose Lactic Acid Calcium 7.0 L Phosphorus Magnesium Direct Bilirubin ALT Alkaline Phosphatase Troponin T C-Reactive Protein Total Protein Albumin Triglycerides Cholesterol LDL Cholesterol Direct HDL Cholesterol Urine WBC (Auto) Urine Creatinine Urine Total Protein Vancomycin Trough Rheumatoid Factor Complement C4 Miscellaneous Test Crossmatch 08/10/03/16 10/03/16 23:45 00:45 05:10 WBC 12.9 H RBC 2.77 L Hgb 7.6 L Hct 23.7 L MCV MCH 27 L MCHC RDW 19.7 H Plt Count 89 L Lymph % (Auto) [place] % (Auto) Lymph # [place] # Baso # Seg Neutrophils % Seg Neuts % (Manual) Lymphocytes % (Manual) 8.0 L Monocytes % (Manual) Eosinophils % (Manual) Basophils % (Manual) Nucleated RBC % Seg Neutrophils # 11.9 H Seg Neutrophils # Man Lymphocytes # (Manual) 1.0 L Monocytes # (Manual) Eosinophils # (Manual) PT INR Fibrinogen dRVVT Confirm Interp Factor V Activity POC ABG pH POC ABG pCO2 POC ABG pO2 Sodium Potassium Chloride Carbon Dioxide BUN Creatinine Glucose POC Glucose 55 L 199 H Lactic Acid Calcium Phosphorus Magnesium Direct Bilirubin ALT Alkaline Phosphatase Troponin T C-Reactive Protein Total Protein Albumin Triglycerides Cholesterol LDL Cholesterol Direct HDL Cholesterol Urine WBC (Auto) Urine Creatinine Urine Total Protein Vancomycin Trough Rheumatoid Factor Complement C4 Miscellaneous Test Crossmatch 10/03/16 10/03/16 10/03/16 05:10 12:14 13:18 WBC RBC Hgb Hct MCV MCH MCHC RDW Plt Count Lymph % (Auto) [place] % (Auto) Lymph # [place] # Baso # Seg Neutrophils % Seg Neuts % (Manual) Lymphocytes % (Manual) Monocytes % (Manual) Eosinophils % (Manual) Basophils % (Manual) Nucleated RBC % Seg Neutrophils # Seg Neutrophils # Man Lymphocytes # (Manual) Monocytes # (Manual) Eosinophils # (Manual) PT INR Fibrinogen dRVVT Confirm Interp Factor V Activity POC ABG pH POC ABG pCO2 POC ABG pO2 Sodium 129 L Potassium 3.3 L Chloride 88.8 L Carbon Dioxide 20 L BUN 29 H Creatinine 2.8 H Glucose POC Glucose 68 L 127 H Lactic Acid Calcium 7.2 L Phosphorus Magnesium Direct Bilirubin ALT Alkaline Phosphatase Troponin T C-Reactive Protein Total Protein Albumin Triglycerides Cholesterol LDL Cholesterol Direct HDL Cholesterol Urine WBC (Auto) Urine Creatinine Urine Total Protein Vancomycin Trough Rheumatoid Factor Complement C4 Miscellaneous Test Crossmatch 10/03/16 10/03/16 10/03/16 14:42 18:21 19:09 WBC RBC Hgb Hct MCV MCH MCHC RDW Plt Count Lymph % (Auto) [place] % (Auto) Lymph # [place] # Baso # Seg Neutrophils % Seg Neuts % (Manual) Lymphocytes % (Manual) Monocytes % (Manual) Eosinophils % (Manual) Basophils % (Manual) Nucleated RBC % Seg Neutrophils # Seg Neutrophils # Man Lymphocytes # (Manual) Monocytes # (Manual) Eosinophils # (Manual) PT INR Fibrinogen dRVVT Confirm Interp Factor V Activity POC ABG pH 7.499 H POC ABG pCO2 28.4 L POC ABG pO2 44 L Sodium Potassium Chloride Carbon Dioxide BUN Creatinine Glucose POC Glucose 64 L 205 H Lactic Acid Calcium Phosphorus Magnesium Direct Bilirubin ALT Alkaline Phosphatase Troponin T C-Reactive Protein Total Protein Albumin Triglycerides Cholesterol LDL Cholesterol Direct HDL Cholesterol Urine WBC (Auto) Urine Creatinine Urine Total Protein Vancomycin Trough Rheumatoid Factor Complement C4 Miscellaneous Test Crossmatch 10/03/16 10/04/16 10/04/16 23:33 04:18 06:30 WBC RBC 2.54 L Hgb 7.1 L Hct 21.7 L MCV MCH MCHC RDW 19.5 H Plt Count 76 L Lymph % (Auto) [place] % (Auto) Lymph # [place] # Baso # Seg Neutrophils % Seg Neuts % (Manual) 88.0 H Lymphocytes % (Manual) 6.0 L Monocytes % (Manual) Eosinophils % (Manual) Basophils % (Manual) Nucleated RBC % Seg Neutrophils # Seg Neutrophils # Man 8.8 H Lymphocytes # (Manual) 0.6 L Monocytes # (Manual) Eosinophils # (Manual) PT INR Fibrinogen dRVVT Confirm Interp Factor V Activity POC ABG pH 7.461 H POC ABG pCO2 33.6 L POC ABG pO2 211 H Sodium Potassium Chloride Carbon Dioxide BUN Creatinine Glucose POC Glucose 136 H Lactic Acid Calcium Phosphorus Magnesium Direct Bilirubin ALT Alkaline Phosphatase Troponin T C-Reactive Protein Total Protein Albumin Triglycerides Cholesterol LDL Cholesterol Direct HDL Cholesterol Urine WBC (Auto) Urine Creatinine Urine Total Protein Vancomycin Trough Rheumatoid Factor Complement C4 Miscellaneous Test Crossmatch 10/04/16 10/04/16 10/04/16 06:30 11:45 17:54 WBC RBC Hgb Hct MCV MCH MCHC RDW Plt Count Lymph % (Auto) [place] % (Auto) Lymph # [place] # Baso # Seg Neutrophils % Seg Neuts % (Manual) Lymphocytes % (Manual) Monocytes % (Manual) Eosinophils % (Manual) Basophils % (Manual) Nucleated RBC % Seg Neutrophils # Seg Neutrophils # Man Lymphocytes # (Manual) Monocytes # (Manual) Eosinophils # (Manual) PT INR Fibrinogen dRVVT Confirm Interp Factor V Activity POC ABG pH POC ABG pCO2 POC ABG pO2 Sodium 128 L Potassium Chloride 87.4 L Carbon Dioxide 20 L BUN 34 H Creatinine 2.9 H Glucose 127 H POC Glucose 158 H 160 H Lactic Acid Calcium 7.4 L Phosphorus Magnesium Direct Bilirubin ALT Alkaline Phosphatase Troponin T C-Reactive Protein Total Protein Albumin Triglycerides Cholesterol LDL Cholesterol Direct HDL Cholesterol Urine WBC (Auto) Urine Creatinine Urine Total Protein Vancomycin Trough Rheumatoid Factor Complement C4 Miscellaneous Test Crossmatch 10/04/16 10/05/16 10/05/16 23:25 04:30 05:00 WBC RBC 2.64 L Hgb 7.5 L Hct 22.6 L MCV MCH MCHC RDW 19.3 H Plt Count 80 L Lymph % (Auto) [place] % (Auto) Lymph # [place] # Baso # Seg Neutrophils % Seg Neuts % (Manual) Lymphocytes % (Manual) 12.0 L Monocytes % (Manual) Eosinophils % (Manual) Basophils % (Manual) Nucleated RBC % Seg Neutrophils # Seg Neutrophils # Man Lymphocytes # (Manual) Monocytes # (Manual) Eosinophils # (Manual) PT INR Fibrinogen dRVVT Confirm Interp Factor V Activity POC ABG pH 7.475 H POC ABG pCO2 33.3 L POC ABG pO2 140 H Sodium Potassium Chloride Carbon Dioxide BUN Creatinine Glucose POC Glucose 141 H Lactic Acid Calcium Phosphorus Magnesium Direct Bilirubin ALT Alkaline Phosphatase Troponin T C-Reactive Protein Total Protein Albumin Triglycerides Cholesterol LDL Cholesterol Direct HDL Cholesterol Urine WBC (Auto) Urine Creatinine Urine Total Protein Vancomycin Trough Rheumatoid Factor Complement C4 Miscellaneous Test Crossmatch 10/05/16 10/05/16 10/05/16 05:00 05:09 12:58 WBC RBC Hgb Hct MCV MCH MCHC RDW Plt Count Lymph % (Auto) [place] % (Auto) Lymph # [place] # Baso # Seg Neutrophils % Seg Neuts % (Manual) Lymphocytes % (Manual) Monocytes % (Manual) Eosinophils % (Manual) Basophils % (Manual) Nucleated RBC % Seg Neutrophils # Seg Neutrophils # Man Lymphocytes # (Manual) Monocytes # (Manual) Eosinophils # (Manual) PT INR Fibrinogen dRVVT Confirm Interp Factor V Activity POC ABG pH POC ABG pCO2 POC ABG pO2 Sodium 131 L Potassium Chloride 94.0 L Carbon Dioxide 20 L BUN 22 H Creatinine 2.0 H Glucose 123 H POC Glucose 166 H 179 H Lactic Acid Calcium 7.7 L Phosphorus 2.20 L D Magnesium Direct Bilirubin ALT Alkaline Phosphatase Troponin T C-Reactive Protein Total Protein Albumin Triglycerides Cholesterol LDL Cholesterol Direct HDL Cholesterol Urine WBC (Auto) Urine Creatinine Urine Total Protein Vancomycin Trough Rheumatoid Factor Complement C4 Miscellaneous Test Crossmatch 10/05/16 10/05/16 10/05/16 15:50 18:53 23:12 WBC RBC Hgb Hct MCV MCH MCHC RDW Plt Count Lymph % (Auto) [place] % (Auto) Lymph # [place] # Baso # Seg Neutrophils % Seg Neuts % (Manual) Lymphocytes % (Manual) Monocytes % (Manual) Eosinophils % (Manual) Basophils % (Manual) Nucleated RBC % Seg Neutrophils # Seg Neutrophils # Man Lymphocytes # (Manual) Monocytes # (Manual) Eosinophils # (Manual) PT INR Fibrinogen dRVVT Confirm Interp Factor V Activity POC ABG pH POC ABG pCO2 POC ABG pO2 Sodium Potassium Chloride Carbon Dioxide BUN Creatinine Glucose POC Glucose 150 H 164 H Lactic Acid Calcium Phosphorus Magnesium Direct Bilirubin ALT Alkaline Phosphatase Troponin T C-Reactive Protein Total Protein Albumin Triglycerides Cholesterol LDL Cholesterol Direct HDL Cholesterol Urine WBC (Auto) Urine Creatinine Urine Total Protein Vancomycin Trough Rheumatoid Factor Complement C4 Miscellaneous Test Crossmatch See Detail 10/06/16 10/06/16 10/06/16 03:50 03:50 04:53 WBC RBC 3.00 L Hgb 8.6 L Hct 25.8 L MCV MCH MCHC RDW 17.9 H Plt Count 65 L Lymph % (Auto) [place] % (Auto) Lymph # [place] # Baso # Seg Neutrophils % Seg Neuts % (Manual) 30.0 L Lymphocytes % (Manual) 5.0 L Monocytes % (Manual) Eosinophils % (Manual) Basophils % (Manual) Nucleated RBC % Seg Neutrophils # Seg Neutrophils # Man Lymphocytes # (Manual) 0.4 L Monocytes # (Manual) Eosinophils # (Manual) PT INR Fibrinogen dRVVT Confirm Interp Factor V Activity POC ABG pH 7.310 L POC ABG pCO2 49.0 H POC ABG pO2 Sodium 133 L Potassium Chloride 95.9 L Carbon Dioxide BUN 26 H Creatinine 2.0 H Glucose 116 H POC Glucose Lactic Acid Calcium 7.8 L Phosphorus Magnesium Direct Bilirubin ALT Alkaline Phosphatase Troponin T C-Reactive Protein Total Protein Albumin Triglycerides Cholesterol LDL Cholesterol Direct HDL Cholesterol Urine WBC (Auto) Urine Creatinine Urine Total Protein Vancomycin Trough Rheumatoid Factor Complement C4 Miscellaneous Test Crossmatch 10/06/16 10/06/16 10/06/16 05:23 11:52 18:34 WBC RBC Hgb Hct MCV MCH MCHC RDW Plt Count Lymph % (Auto) [place] % (Auto) Lymph # [place] # Baso # Seg Neutrophils % Seg Neuts % (Manual) Lymphocytes % (Manual) Monocytes % (Manual) Eosinophils % (Manual) Basophils % (Manual) Nucleated RBC % Seg Neutrophils # Seg Neutrophils # Man Lymphocytes # (Manual) Monocytes # (Manual) Eosinophils # (Manual) PT INR Fibrinogen dRVVT Confirm Interp Factor V Activity POC ABG pH POC ABG pCO2 POC ABG pO2 Sodium Potassium Chloride Carbon Dioxide BUN Creatinine Glucose POC Glucose 126 H 116 H 129 H Lactic Acid Calcium Phosphorus Magnesium Direct Bilirubin ALT Alkaline Phosphatase Troponin T C-Reactive Protein Total Protein Albumin Triglycerides Cholesterol LDL Cholesterol Direct HDL Cholesterol Urine WBC (Auto) Urine Creatinine Urine Total Protein Vancomycin Trough Rheumatoid Factor Complement C4 Miscellaneous Test Crossmatch 10/07/16 10/07/16 10/07/16 03:45 05:00 10:00 WBC 17.0 H RBC 2.68 L Hgb 7.3 L Hct 25.3 L MCV MCH 27 L MCHC 29 L RDW 19.6 H Plt Count 74 L Lymph % (Auto) [place] % (Auto) Lymph # [place] # Baso # Seg Neutrophils % Seg Neuts % (Manual) Lymphocytes % (Manual) 12.0 L Monocytes % (Manual) Eosinophils % (Manual) Basophils % (Manual) Nucleated RBC % 4.0 H Seg Neutrophils # Seg Neutrophils # Man 10.7 H Lymphocytes # (Manual) Monocytes # (Manual) Eosinophils # (Manual) PT INR Fibrinogen dRVVT Confirm Interp Factor V Activity POC ABG pH POC ABG pCO2 POC ABG pO2 Sodium 130 L Potassium 3.2 L Chloride 93.9 L Carbon Dioxide 20 L BUN 44 H Creatinine 2.7 H Glucose 129 H POC Glucose Lactic Acid Calcium 7.4 L Phosphorus Magnesium Direct Bilirubin ALT 6 L Alkaline Phosphatase 195 H Troponin T C-Reactive Protein Total Protein 4.9 L Albumin 1.0 L Triglycerides Cholesterol LDL Cholesterol Direct HDL Cholesterol Urine WBC (Auto) Urine Creatinine Urine Total Protein Vancomycin Trough Rheumatoid Factor Complement C4 Miscellaneous Test Flexitest 1 H Crossmatch 10/07/16 10/07/16 10/07/16 10:00 11:24 18:10 WBC RBC Hgb Hct MCV MCH MCHC RDW Plt Count Lymph % (Auto) [place] % (Auto) Lymph # [place] # Baso # Seg Neutrophils % Seg Neuts % (Manual) Lymphocytes % (Manual) Monocytes % (Manual) Eosinophils % (Manual) Basophils % (Manual) Nucleated RBC % Seg Neutrophils # Seg Neutrophils # Man Lymphocytes # (Manual) Monocytes # (Manual) Eosinophils # (Manual) PT INR Fibrinogen dRVVT Confirm Interp Factor V Activity POC ABG pH POC ABG pCO2 POC ABG pO2 Sodium Potassium Chloride Carbon Dioxide BUN Creatinine Glucose POC Glucose 116 H 130 H Lactic Acid Calcium Phosphorus Magnesium Direct Bilirubin ALT Alkaline Phosphatase Troponin T C-Reactive Protein 19.40 H Total Protein Albumin Triglycerides Cholesterol LDL Cholesterol Direct HDL Cholesterol Urine WBC (Auto) Urine Creatinine Urine Total Protein Vancomycin Trough Rheumatoid Factor Complement C4 Miscellaneous Test Crossmatch 10/07/16 10/08/16 10/08/16 18:30 00:00 04:00 WBC RBC Hgb Hct MCV MCH MCHC RDW Plt Count Lymph % (Auto) [place] % (Auto) Lymph # [place] # Baso # Seg Neutrophils % Seg Neuts % (Manual) Lymphocytes % (Manual) Monocytes % (Manual) Eosinophils % (Manual) Basophils % (Manual) Nucleated RBC % Seg Neutrophils # Seg Neutrophils # Man Lymphocytes # (Manual) Monocytes # (Manual) Eosinophils # (Manual) PT INR Fibrinogen dRVVT Confirm Interp Factor V Activity POC ABG pH POC ABG pCO2 POC ABG pO2 Sodium 132 L Potassium 3.3 L Chloride 93.6 L Carbon Dioxide 17 L BUN 59 H Creatinine 2.7 H Glucose 121 H POC Glucose 122 H Lactic Acid Calcium 7.6 L Phosphorus Magnesium Direct Bilirubin ALT Alkaline Phosphatase Troponin T C-Reactive Protein Total Protein Albumin Triglycerides Cholesterol LDL Cholesterol Direct HDL Cholesterol Urine WBC (Auto) > 182.0 H Urine Creatinine Urine Total Protein Vancomycin Trough Rheumatoid Factor Complement C4 Miscellaneous Test Crossmatch 10/08/16 10/08/16 10/08/16 04:30 05:30 11:51 WBC RBC 5.15 H Hgb 14.4 H D Hct 44.5 H D MCV MCH MCHC RDW 19.5 H Plt Count 56 L Lymph % (Auto) [place] % (Auto) Lymph # [place] # Baso # Seg Neutrophils % Seg Neuts % (Manual) 24.0 L Lymphocytes % (Manual) 8.0 L Monocytes % (Manual) Eosinophils % (Manual) Basophils % (Manual) Nucleated RBC % 9.0 H Seg Neutrophils # Seg Neutrophils # Man Lymphocytes # (Manual) 0.7 L Monocytes # (Manual) Eosinophils # (Manual) PT INR Fibrinogen dRVVT Confirm Interp Factor V Activity POC ABG pH POC ABG pCO2 POC ABG pO2 Sodium Potassium Chloride Carbon Dioxide BUN Creatinine Glucose POC Glucose 125 H 150 H Lactic Acid Calcium Phosphorus Magnesium Direct Bilirubin ALT Alkaline Phosphatase Troponin T C-Reactive Protein Total Protein Albumin Triglycerides Cholesterol LDL Cholesterol Direct HDL Cholesterol Urine WBC (Auto) Urine Creatinine Urine Total Protein Vancomycin Trough Rheumatoid Factor Complement C4 Miscellaneous Test Crossmatch 10/08/16 10/08/16 10/08/16 12:49 17:07 19:30 WBC RBC Hgb 7.1 L D Hct 22.4 L D MCV MCH MCHC RDW Plt Count Lymph % (Auto) [place] % (Auto) Lymph # [place] # Baso # Seg Neutrophils % Seg Neuts % (Manual) Lymphocytes % (Manual) Monocytes % (Manual) Eosinophils % (Manual) Basophils % (Manual) Nucleated RBC % Seg Neutrophils # Seg Neutrophils # Man Lymphocytes # (Manual) Monocytes # (Manual) Eosinophils # (Manual) PT INR Fibrinogen dRVVT Confirm Interp Factor V Activity POC ABG pH POC ABG pCO2 28.2 L POC ABG pO2 111 H Sodium Potassium Chloride Carbon Dioxide BUN Creatinine Glucose POC Glucose 145 H Lactic Acid Calcium Phosphorus Magnesium Direct Bilirubin ALT Alkaline Phosphatase Troponin T C-Reactive Protein Total Protein Albumin Triglycerides Cholesterol LDL Cholesterol Direct HDL Cholesterol Urine WBC (Auto) Urine Creatinine Urine Total Protein Vancomycin Trough Rheumatoid Factor Complement C4 Miscellaneous Test Crossmatch 10/08/16 10/09/16 10/09/16 19:30 03:45 03:45 WBC 12.6 H RBC 2.36 L Hgb 6.7 L Hct 21.1 L MCV MCH MCHC RDW 19.5 H Plt Count 75 L Lymph % (Auto) [place] % (Auto) Lymph # [place] # Baso # Seg Neutrophils % Seg Neuts % (Manual) Lymphocytes % (Manual) Monocytes % (Manual) 10.0 H Eosinophils % (Manual) Basophils % (Manual) Nucleated RBC % 3.0 H Seg Neutrophils # Seg Neutrophils # Man Lymphocytes # (Manual) Monocytes # (Manual) 1.3 H Eosinophils # (Manual) PT 18.0 H INR 1.41 H Fibrinogen dRVVT Confirm Interp Factor V Activity POC ABG pH POC ABG pCO2 POC ABG pO2 Sodium 135 L Potassium Chloride Carbon Dioxide 17 L BUN 81 H Creatinine 3.2 H Glucose 109 H POC Glucose Lactic Acid Calcium 7.4 L Phosphorus 4.60 H D Magnesium Direct Bilirubin ALT Alkaline Phosphatase Troponin T C-Reactive Protein Total Protein Albumin Triglycerides Cholesterol LDL Cholesterol Direct HDL Cholesterol Urine WBC (Auto) Urine Creatinine Urine Total Protein Vancomycin Trough Rheumatoid Factor Complement C4 Miscellaneous Test Crossmatch 10/09/16 10/09/16 10/09/16 03:45 05:14 07:20 WBC RBC Hgb Hct MCV MCH MCHC RDW Plt Count Lymph % (Auto) [place] % (Auto) Lymph # [place] # Baso # Seg Neutrophils % Seg Neuts % (Manual) Lymphocytes % (Manual) Monocytes % (Manual) Eosinophils % (Manual) Basophils % (Manual) Nucleated RBC % Seg Neutrophils # Seg Neutrophils # Man Lymphocytes # (Manual) Monocytes # (Manual) Eosinophils # (Manual) PT 19.0 H INR 1.51 H Fibrinogen dRVVT Confirm Interp Factor V Activity POC ABG pH POC ABG pCO2 POC ABG pO2 Sodium Potassium Chloride Carbon Dioxide BUN Creatinine Glucose POC Glucose 151 H Lactic Acid Calcium Phosphorus Magnesium Direct Bilirubin ALT Alkaline Phosphatase Troponin T C-Reactive Protein Total Protein Albumin Triglycerides Cholesterol LDL Cholesterol Direct HDL Cholesterol Urine WBC (Auto) Urine Creatinine Urine Total Protein Vancomycin Trough Rheumatoid Factor Complement C4 Miscellaneous Test Crossmatch See Detail 10/09/16 10/09/16 10/09/16 11:46 16:20 16:43 WBC RBC Hgb 7.2 L Hct 22.2 L MCV MCH MCHC RDW Plt Count Lymph % (Auto) [place] % (Auto) Lymph # [place] # Baso # Seg Neutrophils % Seg Neuts % (Manual) Lymphocytes % (Manual) Monocytes % (Manual) Eosinophils % (Manual) Basophils % (Manual) Nucleated RBC % Seg Neutrophils # Seg Neutrophils # Man Lymphocytes # (Manual) Monocytes # (Manual) Eosinophils # (Manual) PT INR Fibrinogen dRVVT Confirm Interp Factor V Activity POC ABG pH POC ABG pCO2 POC ABG pO2 Sodium Potassium Chloride Carbon Dioxide BUN Creatinine Glucose POC Glucose 133 H 141 H Lactic Acid Calcium Phosphorus Magnesium Direct Bilirubin ALT Alkaline Phosphatase Troponin T C-Reactive Protein Total Protein Albumin Triglycerides Cholesterol LDL Cholesterol Direct HDL Cholesterol Urine WBC (Auto) Urine Creatinine Urine Total Protein Vancomycin Trough Rheumatoid Factor Complement C4 Miscellaneous Test Crossmatch 0810/10/16 10/10/16 05:00 05:00 11:19 WBC 18.5 H RBC 2.19 L Hgb 6.4 L Hct 19.6 L* MCV MCH MCHC RDW 19.3 H Plt Count 93 L Lymph % (Auto) [place] % (Auto) Lymph # [place] # Baso # Seg Neutrophils % Seg Neuts % (Manual) Lymphocytes % (Manual) 10.0 L Monocytes % (Manual) Eosinophils % (Manual) Basophils % (Manual) Nucleated RBC % 4.0 H Seg Neutrophils # Seg Neutrophils # Man 11.3 H Lymphocytes # (Manual) Monocytes # (Manual) Eosinophils # (Manual) PT INR Fibrinogen dRVVT Confirm Interp Factor V Activity POC ABG pH POC ABG pCO2 POC ABG pO2 Sodium Potassium 5.7 H D Chloride Carbon Dioxide 16 L BUN 94 H Creatinine 3.1 H Glucose 131 H POC Glucose 153 H Lactic Acid Calcium 8.2 L Phosphorus 5.10 H Magnesium 2.40 H Direct Bilirubin 0.3 H ALT < 5 L Alkaline Phosphatase 319 H Troponin T C-Reactive Protein Total Protein 5.1 L Albumin 1.0 L Triglycerides Cholesterol LDL Cholesterol Direct HDL Cholesterol Urine WBC (Auto) Urine Creatinine Urine Total Protein Vancomycin Trough Rheumatoid Factor Complement C4 Miscellaneous Test Crossmatch 10/10/16 10/10/16 10/11/16 17:50 23:30 04:15 WBC RBC Hgb Hct MCV MCH MCHC RDW Plt Count Lymph % (Auto) [place] % (Auto) Lymph # [place] # Baso # Seg Neutrophils % Seg Neuts % (Manual) Lymphocytes % (Manual) Monocytes % (Manual) Eosinophils % (Manual) Basophils % (Manual) Nucleated RBC % Seg Neutrophils # Seg Neutrophils # Man Lymphocytes # (Manual) Monocytes # (Manual) Eosinophils # (Manual) PT INR Fibrinogen dRVVT Confirm Interp Factor V Activity POC ABG pH POC ABG pCO2 POC ABG pO2 Sodium Potassium Chloride 96.4 L Carbon Dioxide 21 L BUN 57 H Creatinine 2.1 H Glucose 151 H POC Glucose 146 H 141 H Lactic Acid Calcium 8.3 L Phosphorus Magnesium Direct Bilirubin ALT Alkaline Phosphatase Troponin T C-Reactive Protein Total Protein Albumin Triglycerides Cholesterol LDL Cholesterol Direct HDL Cholesterol Urine WBC (Auto) Urine Creatinine Urine Total Protein Vancomycin Trough Rheumatoid Factor Complement C4 Miscellaneous Test Crossmatch 08/22/17 08/22/17 08/22/17 04:15 04:15 05:30 WBC 28.3 H RBC 3.12 L Hgb 9.3 L Hct 28.7 L D MCV MCH MCHC RDW 17.7 H Plt Count 128 L Lymph % (Auto) [place] % (Auto) Lymph # [place] # Baso # Seg Neutrophils % Seg Neuts % (Manual) Lymphocytes % (Manual) Monocytes % (Manual) Eosinophils % (Manual) Basophils % (Manual) Nucleated RBC % Seg Neutrophils # Seg Neutrophils # Man Lymphocytes # (Manual) Monocytes # (Manual) Eosinophils # (Manual) PT INR Fibrinogen dRVVT Confirm Interp Factor V Activity POC ABG pH POC ABG pCO2 POC ABG pO2 Sodium Potassium Chloride Carbon Dioxide BUN Creatinine Glucose POC Glucose 167 H Lactic Acid Calcium Phosphorus Magnesium Direct Bilirubin ALT Alkaline Phosphatase Troponin T C-Reactive Protein 15.80 H Total Protein Albumin Triglycerides Cholesterol LDL Cholesterol Direct HDL Cholesterol Urine WBC (Auto) Urine Creatinine Urine Total Protein Vancomycin Trough Rheumatoid Factor Complement C4 Miscellaneous Test Crossmatch 10/11/16 10/11/16 10/11/16 11:40 15:49 23:57 WBC RBC Hgb Hct MCV MCH MCHC RDW Plt Count Lymph % (Auto) [place] % (Auto) Lymph # [place] # Baso # Seg Neutrophils % Seg Neuts % (Manual) Lymphocytes % (Manual) Monocytes % (Manual) Eosinophils % (Manual) Basophils % (Manual) Nucleated RBC % Seg Neutrophils # Seg Neutrophils # Man Lymphocytes # (Manual) Monocytes # (Manual) Eosinophils # (Manual) PT INR Fibrinogen dRVVT Confirm Interp Factor V Activity POC ABG pH POC ABG pCO2 POC ABG pO2 Sodium Potassium Chloride Carbon Dioxide BUN Creatinine Glucose POC Glucose 139 H 168 H 161 H Lactic Acid Calcium Phosphorus Magnesium Direct Bilirubin ALT Alkaline Phosphatase Troponin T C-Reactive Protein Total Protein Albumin Triglycerides Cholesterol LDL Cholesterol Direct HDL Cholesterol Urine WBC (Auto) Urine Creatinine Urine Total Protein Vancomycin Trough Rheumatoid Factor Complement C4 Miscellaneous Test Crossmatch 10/12/16 10/12/16 10/12/16 04:40 04:40 05:44 WBC 22.5 H RBC 2.88 L Hgb 8.8 L Hct 26.8 L MCV MCH MCHC RDW 17.8 H Plt Count Lymph % (Auto) [place] % (Auto) Lymph # [place] # Baso # Seg Neutrophils % Seg Neuts % (Manual) Lymphocytes % (Manual) Monocytes % (Manual) Eosinophils % (Manual) Basophils % (Manual) Nucleated RBC % Seg Neutrophils # Seg Neutrophils # Man Lymphocytes # (Manual) Monocytes # (Manual) Eosinophils # (Manual) PT INR Fibrinogen dRVVT Confirm Interp Factor V Activity POC ABG pH POC ABG pCO2 POC ABG pO2 Sodium 134 L Potassium Chloride 93.0 L Carbon Dioxide BUN 74 H Creatinine 2.5 H Glucose 137 H POC Glucose 158 H Lactic Acid Calcium 8.2 L Phosphorus Magnesium Direct Bilirubin ALT Alkaline Phosphatase Troponin T C-Reactive Protein Total Protein Albumin Triglycerides Cholesterol LDL Cholesterol Direct HDL Cholesterol Urine WBC (Auto) Urine Creatinine Urine Total Protein Vancomycin Trough Rheumatoid Factor Complement C4 Miscellaneous Test Crossmatch 10/12/16 10/12/16 10/12/16 12:27 18:18 23:46 WBC RBC Hgb Hct MCV MCH MCHC RDW Plt Count Lymph % (Auto) [place] % (Auto) Lymph # [place] # Baso # Seg Neutrophils % Seg Neuts % (Manual) Lymphocytes % (Manual) Monocytes % (Manual) Eosinophils % (Manual) Basophils % (Manual) Nucleated RBC % Seg Neutrophils # Seg Neutrophils # Man Lymphocytes # (Manual) Monocytes # (Manual) Eosinophils # (Manual) PT INR Fibrinogen dRVVT Confirm Interp Factor V Activity POC ABG pH POC ABG pCO2 POC ABG pO2 Sodium Potassium Chloride Carbon Dioxide BUN Creatinine Glucose POC Glucose 153 H 140 H 150 H Lactic Acid Calcium Phosphorus Magnesium Direct Bilirubin ALT Alkaline Phosphatase Troponin T C-Reactive Protein Total Protein Albumin Triglycerides Cholesterol LDL Cholesterol Direct HDL Cholesterol Urine WBC (Auto) Urine Creatinine Urine Total Protein Vancomycin Trough Rheumatoid Factor Complement C4 Miscellaneous Test Crossmatch 10/13/16 10/13/16 10/13/16 06:22 09:20 12:29 WBC RBC Hgb Hct MCV MCH MCHC RDW Plt Count Lymph % (Auto) [place] % (Auto) Lymph # [place] # Baso # Seg Neutrophils % Seg Neuts % (Manual) Lymphocytes % (Manual) Monocytes % (Manual) Eosinophils % (Manual) Basophils % (Manual) Nucleated RBC % Seg Neutrophils # Seg Neutrophils # Man Lymphocytes # (Manual) Monocytes # (Manual) Eosinophils # (Manual) PT INR Fibrinogen dRVVT Confirm Interp Factor V Activity POC ABG pH POC ABG pCO2 POC ABG pO2 Sodium Potassium Chloride Carbon Dioxide BUN Creatinine Glucose POC Glucose 165 H 193 H Lactic Acid Calcium Phosphorus Magnesium Direct Bilirubin ALT Alkaline Phosphatase Troponin T C-Reactive Protein Total Protein Albumin Triglycerides Cholesterol LDL Cholesterol Direct HDL Cholesterol Urine WBC (Auto) Urine Creatinine Urine Total Protein Vancomycin Trough Rheumatoid Factor Complement C4 Miscellaneous Test Flexitest 1 H Crossmatch 10/13/16 10/13/16 10/13/16 18:09 Unknown Unknown WBC 23.4 H RBC 2.83 L Hgb 8.7 L Hct 26.1 L MCV MCH MCHC RDW 18.1 H Plt Count Lymph % (Auto) [place] % (Auto) Lymph # [place] # Baso # Seg Neutrophils % Seg Neuts % (Manual) Lymphocytes % (Manual) Monocytes % (Manual) Eosinophils % (Manual) Basophils % (Manual) Nucleated RBC % Seg Neutrophils # Seg Neutrophils # Man Lymphocytes # (Manual) Monocytes # (Manual) Eosinophils # (Manual) PT INR Fibrinogen dRVVT Confirm Interp Factor V Activity POC ABG pH POC ABG pCO2 POC ABG pO2 Sodium Potassium Chloride 95.8 L Carbon Dioxide BUN 82 H Creatinine 2.6 H Glucose 152 H POC Glucose 166 H Lactic Acid Calcium Phosphorus Magnesium Direct Bilirubin ALT Alkaline Phosphatase Troponin T C-Reactive Protein Total Protein Albumin Triglycerides Cholesterol LDL Cholesterol Direct HDL Cholesterol Urine WBC (Auto) Urine Creatinine Urine Total Protein Vancomycin Trough Rheumatoid Factor Complement C4 Miscellaneous Test Crossmatch 10/14/16 10/14/16 10/14/16 05:38 06:35 08:10 WBC 20.7 H RBC 2.81 L Hgb 8.4 L Hct 27.2 L MCV MCH MCHC RDW 19.4 H Plt Count Lymph % (Auto) [place] % (Auto) Lymph # [place] # Baso # Seg Neutrophils % Seg Neuts % (Manual) Lymphocytes % (Manual) Monocytes % (Manual) Eosinophils % (Manual) Basophils % (Manual) Nucleated RBC % Seg Neutrophils # Seg Neutrophils # Man Lymphocytes # (Manual) Monocytes # (Manual) Eosinophils # (Manual) PT INR Fibrinogen dRVVT Confirm Interp Factor V Activity POC ABG pH POC ABG pCO2 POC ABG pO2 Sodium Potassium Chloride Carbon Dioxide BUN 58 H Creatinine 1.9 H Glucose 169 H POC Glucose 195 H Lactic Acid Calcium Phosphorus Magnesium Direct Bilirubin ALT Alkaline Phosphatase Troponin T C-Reactive Protein Total Protein Albumin Triglycerides Cholesterol LDL Cholesterol Direct HDL Cholesterol Urine WBC (Auto) Urine Creatinine Urine Total Protein Vancomycin Trough Rheumatoid Factor Complement C4 Miscellaneous Test Crossmatch 10/14/16 10/14/16 10/14/16 11:44 17:13 23:28 WBC RBC Hgb Hct MCV MCH MCHC RDW Plt Count Lymph % (Auto) [place] % (Auto) Lymph # [place] # Baso # Seg Neutrophils % Seg Neuts % (Manual) Lymphocytes % (Manual) Monocytes % (Manual) Eosinophils % (Manual) Basophils % (Manual) Nucleated RBC % Seg Neutrophils # Seg Neutrophils # Man Lymphocytes # (Manual) Monocytes # (Manual) Eosinophils # (Manual) PT INR Fibrinogen dRVVT Confirm Interp Factor V Activity POC ABG pH POC ABG pCO2 POC ABG pO2 Sodium Potassium Chloride Carbon Dioxide BUN Creatinine Glucose POC Glucose 174 H 121 H 151 H Lactic Acid Calcium Phosphorus Magnesium Direct Bilirubin ALT Alkaline Phosphatase Troponin T C-Reactive Protein Total Protein Albumin Triglycerides Cholesterol LDL Cholesterol Direct HDL Cholesterol Urine WBC (Auto) Urine Creatinine Urine Total Protein Vancomycin Trough Rheumatoid Factor Complement C4 Miscellaneous Test Crossmatch 10/15/16 10/15/16 10/15/16 05:06 12:26 17:48 WBC RBC Hgb Hct MCV MCH MCHC RDW Plt Count Lymph % (Auto) [place] % (Auto) Lymph # [place] # Baso # Seg Neutrophils % Seg Neuts % (Manual) Lymphocytes % (Manual) Monocytes % (Manual) Eosinophils % (Manual) Basophils % (Manual) Nucleated RBC % Seg Neutrophils # Seg Neutrophils # Man Lymphocytes # (Manual) Monocytes # (Manual) Eosinophils # (Manual) PT INR Fibrinogen dRVVT Confirm Interp Factor V Activity POC ABG pH POC ABG pCO2 POC ABG pO2 Sodium Potassium Chloride Carbon Dioxide BUN Creatinine Glucose POC Glucose 151 H 149 H 153 H Lactic Acid Calcium Phosphorus Magnesium Direct Bilirubin ALT Alkaline Phosphatase Troponin T C-Reactive Protein Total Protein Albumin Triglycerides Cholesterol LDL Cholesterol Direct HDL Cholesterol Urine WBC (Auto) Urine Creatinine Urine Total Protein Vancomycin Trough Rheumatoid Factor Complement C4 Miscellaneous Test Crossmatch 10/15/16 10/15/16 10/16/16 Unknown Unknown 00:02 WBC 23.4 H RBC 2.78 L Hgb 8.5 L Hct 25.7 L MCV MCH MCHC RDW 18.7 H Plt Count Lymph % (Auto) [place] % (Auto) Lymph # [place] # Baso # Seg Neutrophils % Seg Neuts % (Manual) Lymphocytes % (Manual) Monocytes % (Manual) Eosinophils % (Manual) Basophils % (Manual) Nucleated RBC % Seg Neutrophils # Seg Neutrophils # Man Lymphocytes # (Manual) Monocytes # (Manual) Eosinophils # (Manual) PT INR Fibrinogen dRVVT Confirm Interp Factor V Activity POC ABG pH POC ABG pCO2 POC ABG pO2 Sodium Potassium Chloride Carbon Dioxide BUN 73 H Creatinine 2.3 H Glucose 120 H POC Glucose 137 H Lactic Acid Calcium Phosphorus Magnesium Direct Bilirubin ALT Alkaline Phosphatase Troponin T C-Reactive Protein Total Protein Albumin Triglycerides Cholesterol LDL Cholesterol Direct HDL Cholesterol Urine WBC (Auto) Urine Creatinine Urine Total Protein Vancomycin Trough Rheumatoid Factor Complement C4 Miscellaneous Test Crossmatch 10/16/16 10/16/16 10/16/16 05:44 06:25 06:25 WBC 22.5 H RBC 2.76 L Hgb 8.3 L Hct 25.2 L MCV MCH MCHC RDW 18.3 H Plt Count Lymph % (Auto) [place] % (Auto) Lymph # [place] # Baso # Seg Neutrophils % Seg Neuts % (Manual) Lymphocytes % (Manual) Monocytes % (Manual) Eosinophils % (Manual) Basophils % (Manual) Nucleated RBC % Seg Neutrophils # Seg Neutrophils # Man Lymphocytes # (Manual) Monocytes # (Manual) Eosinophils # (Manual) PT INR Fibrinogen dRVVT Confirm Interp Factor V Activity POC ABG pH POC ABG pCO2 POC ABG pO2 Sodium Potassium Chloride Carbon Dioxide BUN 92 H Creatinine 3.0 H Glucose 138 H POC Glucose 110 H Lactic Acid Calcium Phosphorus Magnesium Direct Bilirubin ALT Alkaline Phosphatase Troponin T C-Reactive Protein Total Protein Albumin Triglycerides Cholesterol LDL Cholesterol Direct HDL Cholesterol Urine WBC (Auto) Urine Creatinine Urine Total Protein Vancomycin Trough Rheumatoid Factor Complement C4 Miscellaneous Test Crossmatch 10/16/16 10/16/16 10/16/16 11:27 11:48 17:36 WBC RBC Hgb Hct MCV MCH MCHC RDW Plt Count Lymph % (Auto) [place] % (Auto) Lymph # [place] # Baso # Seg Neutrophils % Seg Neuts % (Manual) Lymphocytes % (Manual) Monocytes % (Manual) Eosinophils % (Manual) Basophils % (Manual) Nucleated RBC % Seg Neutrophils # Seg Neutrophils # Man Lymphocytes # (Manual) Monocytes # (Manual) Eosinophils # (Manual) PT INR Fibrinogen dRVVT Confirm Interp Factor V Activity POC ABG pH 7.582 H POC ABG pCO2 27.4 L POC ABG pO2 110 H Sodium Potassium Chloride Carbon Dioxide BUN Creatinine Glucose POC Glucose 121 H 133 H Lactic Acid Calcium Phosphorus Magnesium Direct Bilirubin ALT Alkaline Phosphatase Troponin T C-Reactive Protein Total Protein Albumin Triglycerides Cholesterol LDL Cholesterol Direct HDL Cholesterol Urine WBC (Auto) Urine Creatinine Urine Total Protein Vancomycin Trough Rheumatoid Factor Complement C4 Miscellaneous Test Crossmatch 10/16/16 10/17/16 10/17/16 20:48 04:24 04:24 WBC 21.4 H RBC 2.72 L Hgb 8.0 L Hct 25.2 L MCV MCH MCHC RDW 18.0 H Plt Count Lymph % (Auto) [place] % (Auto) Lymph # [place] # Baso # Seg Neutrophils % Seg Neuts % (Manual) Lymphocytes % (Manual) Monocytes % (Manual) Eosinophils % (Manual) Basophils % (Manual) Nucleated RBC % Seg Neutrophils # Seg Neutrophils # Man Lymphocytes # (Manual) Monocytes # (Manual) Eosinophils # (Manual) PT INR Fibrinogen dRVVT Confirm Interp Factor V Activity POC ABG pH 7.561 H POC ABG pCO2 24.4 L POC ABG pO2 77 L Sodium 148 H Potassium Chloride Carbon Dioxide BUN 104 H Creatinine 3.0 H Glucose 149 H POC Glucose Lactic Acid Calcium Phosphorus Magnesium Direct Bilirubin ALT Alkaline Phosphatase 138 H Troponin T C-Reactive Protein Total Protein 6.2 L Albumin 1.5 L Triglycerides Cholesterol LDL Cholesterol Direct HDL Cholesterol Urine WBC (Auto) Urine Creatinine Urine Total Protein Vancomycin Trough Rheumatoid Factor Complement C4 Miscellaneous Test Crossmatch 10/17/16 10/17/16 10/17/16 06:02 12:17 17:14 WBC RBC Hgb Hct MCV MCH MCHC RDW Plt Count Lymph % (Auto) [place] % (Auto) Lymph # [place] # Baso # Seg Neutrophils % Seg Neuts % (Manual) Lymphocytes % (Manual) Monocytes % (Manual) Eosinophils % (Manual) Basophils % (Manual) Nucleated RBC % Seg Neutrophils # Seg Neutrophils # Man Lymphocytes # (Manual) Monocytes # (Manual) Eosinophils # (Manual) PT INR Fibrinogen dRVVT Confirm Interp Factor V Activity POC ABG pH POC ABG pCO2 POC ABG pO2 Sodium Potassium Chloride Carbon Dioxide BUN Creatinine Glucose POC Glucose 170 H 167 H 126 H Lactic Acid Calcium Phosphorus Magnesium Direct Bilirubin ALT Alkaline Phosphatase Troponin T C-Reactive Protein Total Protein Albumin Triglycerides Cholesterol LDL Cholesterol Direct HDL Cholesterol Urine WBC (Auto) Urine Creatinine Urine Total Protein Vancomycin Trough Rheumatoid Factor Complement C4 Miscellaneous Test Crossmatch 10/17/16 10/18/16 10/18/16 23:17 04:00 04:00 WBC 20.7 H RBC 2.47 L Hgb 7.4 L Hct 22.9 L MCV MCH MCHC RDW 17.5 H Plt Count Lymph % (Auto) [place] % (Auto) Lymph # [place] # Baso # Seg Neutrophils % Seg Neuts % (Manual) Lymphocytes % (Manual) Monocytes % (Manual) Eosinophils % (Manual) Basophils % (Manual) Nucleated RBC % Seg Neutrophils # Seg Neutrophils # Man Lymphocytes # (Manual) Monocytes # (Manual) Eosinophils # (Manual) PT INR Fibrinogen dRVVT Confirm Interp Factor V Activity POC ABG pH POC ABG pCO2 POC ABG pO2 Sodium 149 H Potassium Chloride 107.9 H Carbon Dioxide 20 L BUN 117 H Creatinine 3.2 H Glucose 119 H POC Glucose 121 H Lactic Acid Calcium Phosphorus Magnesium Direct Bilirubin ALT Alkaline Phosphatase Troponin T C-Reactive Protein Total Protein Albumin Triglycerides Cholesterol LDL Cholesterol Direct HDL Cholesterol Urine WBC (Auto) Urine Creatinine Urine Total Protein Vancomycin Trough Rheumatoid Factor Complement C4 Miscellaneous Test Crossmatch 10/18/16 10/18/16 10/18/16 05:23 10:46 17:30 WBC RBC Hgb Hct MCV MCH MCHC RDW Plt Count Lymph % (Auto) [place] % (Auto) Lymph # [place] # Baso # Seg Neutrophils % Seg Neuts % (Manual) Lymphocytes % (Manual) Monocytes % (Manual) Eosinophils % (Manual) Basophils % (Manual) Nucleated RBC % Seg Neutrophils # Seg Neutrophils # Man Lymphocytes # (Manual) Monocytes # (Manual) Eosinophils # (Manual) PT INR Fibrinogen dRVVT Confirm Interp Factor V Activity POC ABG pH POC ABG pCO2 POC ABG pO2 Sodium Potassium Chloride Carbon Dioxide BUN Creatinine Glucose POC Glucose 119 H 155 H 124 H Lactic Acid Calcium Phosphorus Magnesium Direct Bilirubin ALT Alkaline Phosphatase Troponin T C-Reactive Protein Total Protein Albumin Triglycerides Cholesterol LDL Cholesterol Direct HDL Cholesterol Urine WBC (Auto) Urine Creatinine Urine Total Protein Vancomycin Trough Rheumatoid Factor Complement C4 Miscellaneous Test Crossmatch 10/19/16 10/19/16 10/19/16 04:00 04:00 05:25 WBC 17.4 H RBC 2.54 L Hgb 7.7 L Hct 23.6 L MCV MCH MCHC RDW 17.3 H Plt Count Lymph % (Auto) [place] % (Auto) Lymph # [place] # Baso # Seg Neutrophils % Seg Neuts % (Manual) Lymphocytes % (Manual) Monocytes % (Manual) Eosinophils % (Manual) Basophils % (Manual) Nucleated RBC % Seg Neutrophils # Seg Neutrophils # Man Lymphocytes # (Manual) Monocytes # (Manual) Eosinophils # (Manual) PT INR Fibrinogen dRVVT Confirm Interp Factor V Activity POC ABG pH POC ABG pCO2 POC ABG pO2 Sodium Potassium Chloride Carbon Dioxide BUN 72 H Creatinine 2.1 H Glucose 116 H POC Glucose 119 H Lactic Acid Calcium Phosphorus Magnesium Direct Bilirubin ALT Alkaline Phosphatase Troponin T C-Reactive Protein Total Protein Albumin Triglycerides Cholesterol LDL Cholesterol Direct HDL Cholesterol Urine WBC (Auto) Urine Creatinine Urine Total Protein Vancomycin Trough Rheumatoid Factor Complement C4 Miscellaneous Test Crossmatch 10/19/16 10/19/16 10/20/16 11:46 23:59 06:00 WBC RBC Hgb Hct MCV MCH MCHC RDW Plt Count Lymph % (Auto) [place] % (Auto) Lymph # [place] # Baso # Seg Neutrophils % Seg Neuts % (Manual) Lymphocytes % (Manual) Monocytes % (Manual) Eosinophils % (Manual) Basophils % (Manual) Nucleated RBC % Seg Neutrophils # Seg Neutrophils # Man Lymphocytes # (Manual) Monocytes # (Manual) Eosinophils # (Manual) PT INR Fibrinogen dRVVT Confirm Interp Factor V Activity POC ABG pH POC ABG pCO2 POC ABG pO2 Sodium Potassium Chloride Carbon Dioxide 17 L BUN 94 H Creatinine 2.7 H Glucose POC Glucose 116 H 117 H Lactic Acid Calcium Phosphorus Magnesium Direct Bilirubin ALT Alkaline Phosphatase Troponin T C-Reactive Protein Total Protein Albumin Triglycerides Cholesterol LDL Cholesterol Direct HDL Cholesterol Urine WBC (Auto) Urine Creatinine Urine Total Protein Vancomycin Trough Rheumatoid Factor Complement C4 Miscellaneous Test Crossmatch 10/20/16 10/20/16 10/20/16 06:00 11:49 16:00 WBC 19.7 H RBC 2.51 L Hgb 7.7 L Hct 23.5 L MCV MCH MCHC RDW 17.5 H Plt Count Lymph % (Auto) [place] % (Auto) Lymph # [place] # Baso # Seg Neutrophils % Seg Neuts % (Manual) Lymphocytes % (Manual) Monocytes % (Manual) Eosinophils % (Manual) Basophils % (Manual) Nucleated RBC % Seg Neutrophils # Seg Neutrophils # Man Lymphocytes # (Manual) Monocytes # (Manual) Eosinophils # (Manual) PT INR Fibrinogen dRVVT Confirm Interp Factor V Activity POC ABG pH POC ABG pCO2 POC ABG pO2 Sodium Potassium Chloride Carbon Dioxide BUN Creatinine Glucose POC Glucose 117 H Lactic Acid Calcium Phosphorus Magnesium Direct Bilirubin ALT Alkaline Phosphatase Troponin T C-Reactive Protein Total Protein Albumin Triglycerides Cholesterol LDL Cholesterol Direct HDL Cholesterol Urine WBC (Auto) Urine Creatinine Urine Total Protein Vancomycin Trough Rheumatoid Factor Complement C4 Miscellaneous Test Flexitest 1 H Crossmatch 10/20/16 10/20/16 10/21/16 18:36 23:39 04:00 WBC RBC Hgb Hct MCV MCH MCHC RDW Plt Count Lymph % (Auto) [place] % (Auto) Lymph # [place] # Baso # Seg Neutrophils % Seg Neuts % (Manual) Lymphocytes % (Manual) Monocytes % (Manual) Eosinophils % (Manual) Basophils % (Manual) Nucleated RBC % Seg Neutrophils # Seg Neutrophils # Man Lymphocytes # (Manual) Monocytes # (Manual) Eosinophils # (Manual) PT INR Fibrinogen dRVVT Confirm Interp Factor V Activity POC ABG pH POC ABG pCO2 POC ABG pO2 Sodium Potassium 5.4 H D Chloride Carbon Dioxide 15 L BUN 110 H Creatinine 3.0 H Glucose POC Glucose 127 H 114 H Lactic Acid Calcium Phosphorus Magnesium Direct Bilirubin ALT Alkaline Phosphatase Troponin T C-Reactive Protein Total Protein Albumin Triglycerides Cholesterol LDL Cholesterol Direct HDL Cholesterol Urine WBC (Auto) Urine Creatinine Urine Total Protein Vancomycin Trough Rheumatoid Factor Complement C4 Miscellaneous Test Crossmatch 10/21/16 10/21/16 10/22/16 05:54 23:46 05:18 WBC RBC Hgb Hct MCV MCH MCHC RDW Plt Count Lymph % (Auto) [place] % (Auto) Lymph # [place] # Baso # Seg Neutrophils % Seg Neuts % (Manual) Lymphocytes % (Manual) Monocytes % (Manual) Eosinophils % (Manual) Basophils % (Manual) Nucleated RBC % Seg Neutrophils # Seg Neutrophils # Man Lymphocytes # (Manual) Monocytes # (Manual) Eosinophils # (Manual) PT INR Fibrinogen dRVVT Confirm Interp Factor V Activity POC ABG pH POC ABG pCO2 POC ABG pO2 Sodium Potassium Chloride Carbon Dioxide BUN Creatinine Glucose POC Glucose 119 H 108 H 109 H Lactic Acid Calcium Phosphorus Magnesium Direct Bilirubin ALT Alkaline Phosphatase Troponin T C-Reactive Protein Total Protein Albumin Triglycerides Cholesterol LDL Cholesterol Direct HDL Cholesterol Urine WBC (Auto) Urine Creatinine Urine Total Protein Vancomycin Trough Rheumatoid Factor Complement C4 Miscellaneous Test Crossmatch 10/22/16 10/22/16 10/22/16 06:40 06:40 06:40 WBC 14.0 H RBC 2.03 L Hgb 7.0 L Hct 20.5 L MCV 98 H MCH 34 H MCHC 35 H RDW 17.8 H Plt Count Lymph % (Auto) [place] % (Auto) 9.9 H Lymph # [place] # 1.4 H Baso # 0.2 H Seg Neutrophils % 72.0 H Seg Neuts % (Manual) Lymphocytes % (Manual) Monocytes % (Manual) Eosinophils % (Manual) Basophils % (Manual) Nucleated RBC % Seg Neutrophils # 10.0 H Seg Neutrophils # Man Lymphocytes # (Manual) Monocytes # (Manual) Eosinophils # (Manual) PT INR Fibrinogen dRVVT Confirm Interp Factor V Activity POC ABG pH POC ABG pCO2 POC ABG pO2 Sodium 130 L D Potassium Chloride 92.4 L Carbon Dioxide 20 L BUN 50 H Creatinine 1.6 H Glucose 589 H* POC Glucose Lactic Acid Calcium 7.8 L D Phosphorus Magnesium 1.60 L Direct Bilirubin ALT Alkaline Phosphatase Troponin T C-Reactive Protein Total Protein Albumin Triglycerides Cholesterol LDL Cholesterol Direct HDL Cholesterol Urine WBC (Auto) Urine Creatinine Urine Total Protein Vancomycin Trough Rheumatoid Factor Complement C4 Miscellaneous Test Crossmatch 10/22/16 10/22/16 10/22/16 11:39 16:44 23:36 WBC RBC Hgb Hct MCV MCH MCHC RDW Plt Count Lymph % (Auto) [place] % (Auto) Lymph # [place] # Baso # Seg Neutrophils % Seg Neuts % (Manual) Lymphocytes % (Manual) Monocytes % (Manual) Eosinophils % (Manual) Basophils % (Manual) Nucleated RBC % Seg Neutrophils # Seg Neutrophils # Man Lymphocytes # (Manual) Monocytes # (Manual) Eosinophils # (Manual) PT INR Fibrinogen dRVVT Confirm Interp Factor V Activity POC ABG pH POC ABG pCO2 POC ABG pO2 Sodium Potassium Chloride Carbon Dioxide BUN Creatinine Glucose POC Glucose 142 H 163 H 123 H Lactic Acid Calcium Phosphorus Magnesium Direct Bilirubin ALT Alkaline Phosphatase Troponin T C-Reactive Protein Total Protein Albumin Triglycerides Cholesterol LDL Cholesterol Direct HDL Cholesterol Urine WBC (Auto) Urine Creatinine Urine Total Protein Vancomycin Trough Rheumatoid Factor Complement C4 Miscellaneous Test Crossmatch 10/23/16 10/23/16 10/23/16 04:58 06:00 12:12 WBC RBC Hgb Hct MCV MCH MCHC RDW Plt Count Lymph % (Auto) [place] % (Auto) Lymph # [place] # Baso # Seg Neutrophils % Seg Neuts % (Manual) Lymphocytes % (Manual) Monocytes % (Manual) Eosinophils % (Manual) Basophils % (Manual) Nucleated RBC % Seg Neutrophils # Seg Neutrophils # Man Lymphocytes # (Manual) Monocytes # (Manual) Eosinophils # (Manual) PT INR Fibrinogen dRVVT Confirm Interp Factor V Activity POC ABG pH POC ABG pCO2 POC ABG pO2 Sodium 133 L Potassium 3.5 L Chloride 96.1 L Carbon Dioxide 18 L BUN 76 H Creatinine 2.1 H Glucose POC Glucose 133 H 138 H Lactic Acid Calcium 8.3 L Phosphorus Magnesium Direct Bilirubin ALT Alkaline Phosphatase Troponin T C-Reactive Protein Total Protein Albumin Triglycerides Cholesterol LDL Cholesterol Direct HDL Cholesterol Urine WBC (Auto) Urine Creatinine Urine Total Protein Vancomycin Trough Rheumatoid Factor Complement C4 Miscellaneous Test Crossmatch 10/23/16 10/23/16 10/24/16 16:53 23:37 04:00 WBC RBC Hgb Hct MCV MCH MCHC RDW Plt Count Lymph % (Auto) [place] % (Auto) Lymph # [place] # Baso # Seg Neutrophils % Seg Neuts % (Manual) Lymphocytes % (Manual) Monocytes % (Manual) Eosinophils % (Manual) Basophils % (Manual) Nucleated RBC % Seg Neutrophils # Seg Neutrophils # Man Lymphocytes # (Manual) Monocytes # (Manual) Eosinophils # (Manual) PT INR Fibrinogen dRVVT Confirm Interp Factor V Activity POC ABG pH POC ABG pCO2 POC ABG pO2 Sodium 131 L Potassium Chloride 94.5 L Carbon Dioxide 19 L BUN 97 H Creatinine 2.6 H Glucose 110 H POC Glucose 125 H 123 H Lactic Acid Calcium 8.3 L Phosphorus Magnesium Direct Bilirubin ALT Alkaline Phosphatase Troponin T C-Reactive Protein Total Protein Albumin Triglycerides Cholesterol LDL Cholesterol Direct HDL Cholesterol Urine WBC (Auto) Urine Creatinine Urine Total Protein Vancomycin Trough Rheumatoid Factor Complement C4 Miscellaneous Test Crossmatch 10/24/16 10/24/16 10/24/16 07:49 11:39 17:52 WBC RBC Hgb 6.0 L Hct 19.7 L* MCV MCH MCHC RDW Plt Count Lymph % (Auto) [place] % (Auto) Lymph # [place] # Baso # Seg Neutrophils % Seg Neuts % (Manual) Lymphocytes % (Manual) Monocytes % (Manual) Eosinophils % (Manual) Basophils % (Manual) Nucleated RBC % Seg Neutrophils # Seg Neutrophils # Man Lymphocytes # (Manual) Monocytes # (Manual) Eosinophils # (Manual) PT INR Fibrinogen dRVVT Confirm Interp Factor V Activity POC ABG pH POC ABG pCO2 POC ABG pO2 Sodium Potassium Chloride Carbon Dioxide BUN Creatinine Glucose POC Glucose 106 H 158 H Lactic Acid Calcium Phosphorus Magnesium Direct Bilirubin ALT Alkaline Phosphatase Troponin T C-Reactive Protein Total Protein Albumin Triglycerides Cholesterol LDL Cholesterol Direct HDL Cholesterol Urine WBC (Auto) Urine Creatinine Urine Total Protein Vancomycin Trough Rheumatoid Factor Complement C4 Miscellaneous Test Crossmatch 10/24/16 10/24/16 10/24/16 20:00 22:27 Unknown WBC RBC Hgb 9.4 L D Hct 27.5 L D MCV MCH MCHC RDW Plt Count Lymph % (Auto) [place] % (Auto) Lymph # [place] # Baso # Seg Neutrophils % Seg Neuts % (Manual) Lymphocytes % (Manual) Monocytes % (Manual) Eosinophils % (Manual) Basophils % (Manual) Nucleated RBC % Seg Neutrophils # Seg Neutrophils # Man Lymphocytes # (Manual) Monocytes # (Manual) Eosinophils # (Manual) PT INR Fibrinogen dRVVT Confirm Interp Factor V Activity POC ABG pH POC ABG pCO2 POC ABG pO2 Sodium Potassium Chloride Carbon Dioxide BUN Creatinine Glucose POC Glucose 125 H Lactic Acid Calcium Phosphorus Magnesium Direct Bilirubin ALT Alkaline Phosphatase Troponin T C-Reactive Protein Total Protein Albumin Triglycerides Cholesterol LDL Cholesterol Direct HDL Cholesterol Urine WBC (Auto) Urine Creatinine Urine Total Protein Vancomycin Trough Rheumatoid Factor Complement C4 Miscellaneous Test Crossmatch See Detail 10/25/16 10/25/16 10/25/16 04:00 04:00 04:00 WBC 14.2 H RBC 2.98 L Hgb 9.0 L Hct 26.2 L MCV MCH MCHC RDW 16.6 H Plt Count Lymph % (Auto) [place] % (Auto) 10.7 H Lymph # [place] # 1.5 H Baso # Seg Neutrophils % 73.6 H Seg Neuts % (Manual) Lymphocytes % (Manual) Monocytes % (Manual) Eosinophils % (Manual) Basophils % (Manual) Nucleated RBC % Seg Neutrophils # 10.5 H Seg Neutrophils # Man Lymphocytes # (Manual) Monocytes # (Manual) Eosinophils # (Manual) PT INR Fibrinogen dRVVT Confirm Interp Factor V Activity POC ABG pH POC ABG pCO2 POC ABG pO2 Sodium 132 L Potassium Chloride 94.7 L Carbon Dioxide BUN 51 H Creatinine 1.6 H Glucose 130 H POC Glucose Lactic Acid Calcium 8.3 L Phosphorus 1.60 L D Magnesium Direct Bilirubin ALT Alkaline Phosphatase Troponin T C-Reactive Protein Total Protein Albumin Triglycerides Cholesterol LDL Cholesterol Direct HDL Cholesterol Urine WBC (Auto) Urine Creatinine Urine Total Protein Vancomycin Trough Rheumatoid Factor Complement C4 Miscellaneous Test Crossmatch 10/25/16 10/25/16 10/25/16 04:32 11:48 17:22 WBC RBC Hgb Hct MCV MCH MCHC RDW Plt Count Lymph % (Auto) [place] % (Auto) Lymph # [place] # Baso # Seg Neutrophils % Seg Neuts % (Manual) Lymphocytes % (Manual) Monocytes % (Manual) Eosinophils % (Manual) Basophils % (Manual) Nucleated RBC % Seg Neutrophils # Seg Neutrophils # Man Lymphocytes # (Manual) Monocytes # (Manual) Eosinophils # (Manual) PT INR Fibrinogen dRVVT Confirm Interp Factor V Activity POC ABG pH POC ABG pCO2 POC ABG pO2 Sodium Potassium Chloride Carbon Dioxide BUN Creatinine Glucose POC Glucose 124 H 171 H 120 H Lactic Acid Calcium Phosphorus Magnesium Direct Bilirubin ALT Alkaline Phosphatase Troponin T C-Reactive Protein Total Protein Albumin Triglycerides Cholesterol LDL Cholesterol Direct HDL Cholesterol Urine WBC (Auto) Urine Creatinine Urine Total Protein Vancomycin Trough Rheumatoid Factor Complement C4 Miscellaneous Test Crossmatch 10/26/16 10/26/16 10/26/16 04:54 07:06 07:06 WBC 16.9 H RBC 3.06 L Hgb 9.1 L Hct 26.9 L MCV MCH MCHC RDW 16.9 H Plt Count Lymph % (Auto) [place] % (Auto) Lymph # [place] # Baso # Seg Neutrophils % Seg Neuts % (Manual) 71.0 H Lymphocytes % (Manual) 5.0 L Monocytes % (Manual) 12.0 H Eosinophils % (Manual) Basophils % (Manual) Nucleated RBC % Seg Neutrophils # Seg Neutrophils # Man 12.0 H Lymphocytes # (Manual) 0.8 L Monocytes # (Manual) 2.0 H Eosinophils # (Manual) PT INR Fibrinogen dRVVT Confirm Interp Factor V Activity POC ABG pH POC ABG pCO2 POC ABG pO2 Sodium 135 L Potassium Chloride 97.1 L Carbon Dioxide BUN 73 H Creatinine 2.2 H Glucose 117 H POC Glucose 123 H Lactic Acid Calcium Phosphorus 1.70 L Magnesium Direct Bilirubin ALT Alkaline Phosphatase Troponin T C-Reactive Protein Total Protein Albumin Triglycerides Cholesterol LDL Cholesterol Direct HDL Cholesterol Urine WBC (Auto) Urine Creatinine Urine Total Protein Vancomycin Trough Rheumatoid Factor Complement C4 Miscellaneous Test Crossmatch 10/26/16 10/26/16 10/26/16 12:12 17:29 23:42 WBC RBC Hgb Hct MCV MCH MCHC RDW Plt Count Lymph % (Auto) [place] % (Auto) Lymph # [place] # Baso # Seg Neutrophils % Seg Neuts % (Manual) Lymphocytes % (Manual) Monocytes % (Manual) Eosinophils % (Manual) Basophils % (Manual) Nucleated RBC % Seg Neutrophils # Seg Neutrophils # Man Lymphocytes # (Manual) Monocytes # (Manual) Eosinophils # (Manual) PT INR Fibrinogen dRVVT Confirm Interp Factor V Activity POC ABG pH POC ABG pCO2 POC ABG pO2 Sodium Potassium Chloride Carbon Dioxide BUN Creatinine Glucose POC Glucose 126 H 161 H 118 H Lactic Acid Calcium Phosphorus Magnesium Direct Bilirubin ALT Alkaline Phosphatase Troponin T C-Reactive Protein Total Protein Albumin Triglycerides Cholesterol LDL Cholesterol Direct HDL Cholesterol Urine WBC (Auto) Urine Creatinine Urine Total Protein Vancomycin Trough Rheumatoid Factor Complement C4 Miscellaneous Test Crossmatch 10/27/16 10/27/16 10/27/16 05:03 06:30 06:30 WBC 13.9 H RBC 3.09 L Hgb 9.2 L Hct 27.5 L MCV MCH MCHC RDW 17.0 H Plt Count Lymph % (Auto) [place] % (Auto) Lymph # [place] # Baso # Seg Neutrophils % Seg Neuts % (Manual) 78.0 H Lymphocytes % (Manual) Monocytes % (Manual) Eosinophils % (Manual) Basophils % (Manual) Nucleated RBC % 2.0 H Seg Neutrophils # Seg Neutrophils # Man 10.8 H Lymphocytes # (Manual) Monocytes # (Manual) 1.0 H Eosinophils # (Manual) PT INR Fibrinogen dRVVT Confirm Interp Factor V Activity POC ABG pH POC ABG pCO2 POC ABG pO2 Sodium Potassium Chloride Carbon Dioxide BUN 40 H Creatinine 1.5 H Glucose 135 H POC Glucose 107 H Lactic Acid Calcium 8.3 L Phosphorus 1.30 L D Magnesium Direct Bilirubin ALT Alkaline Phosphatase Troponin T C-Reactive Protein Total Protein Albumin Triglycerides Cholesterol LDL Cholesterol Direct HDL Cholesterol Urine WBC (Auto) Urine Creatinine Urine Total Protein Vancomycin Trough Rheumatoid Factor Complement C4 Miscellaneous Test Crossmatch 10/27/16 10/27/16 10/27/16 13:27 18:07 23:40 WBC RBC Hgb Hct MCV MCH MCHC RDW Plt Count Lymph % (Auto) [place] % (Auto) Lymph # [place] # Baso # Seg Neutrophils % Seg Neuts % (Manual) Lymphocytes % (Manual) Monocytes % (Manual) Eosinophils % (Manual) Basophils % (Manual) Nucleated RBC % Seg Neutrophils # Seg Neutrophils # Man Lymphocytes # (Manual) Monocytes # (Manual) Eosinophils # (Manual) PT INR Fibrinogen dRVVT Confirm Interp Factor V Activity POC ABG pH POC ABG pCO2 POC ABG pO2 Sodium Potassium Chloride Carbon Dioxide BUN Creatinine Glucose POC Glucose 117 H 121 H 118 H Lactic Acid Calcium Phosphorus Magnesium Direct Bilirubin ALT Alkaline Phosphatase Troponin T C-Reactive Protein Total Protein Albumin Triglycerides Cholesterol LDL Cholesterol Direct HDL Cholesterol Urine WBC (Auto) Urine Creatinine Urine Total Protein Vancomycin Trough Rheumatoid Factor Complement C4 Miscellaneous Test Crossmatch 10/28/16 10/28/16 10/28/16 05:48 06:45 06:45 WBC 14.7 H RBC 3.05 L Hgb 9.0 L Hct 26.9 L MCV MCH MCHC RDW 16.8 H Plt Count Lymph % (Auto) 8.2 L [place] % (Auto) 8.4 H Lymph # [place] # 1.2 H Baso # Seg Neutrophils % 81.9 H Seg Neuts % (Manual) Lymphocytes % (Manual) Monocytes % (Manual) Eosinophils % (Manual) Basophils % (Manual) Nucleated RBC % Seg Neutrophils # 12.1 H Seg Neutrophils # Man Lymphocytes # (Manual) Monocytes # (Manual) Eosinophils # (Manual) PT INR Fibrinogen dRVVT Confirm Interp Factor V Activity POC ABG pH POC ABG pCO2 POC ABG pO2 Sodium Potassium Chloride Carbon Dioxide BUN 60 H Creatinine 1.9 H Glucose 120 H POC Glucose 114 H Lactic Acid Calcium Phosphorus Magnesium Direct Bilirubin ALT Alkaline Phosphatase Troponin T C-Reactive Protein Total Protein Albumin Triglycerides Cholesterol LDL Cholesterol Direct HDL Cholesterol Urine WBC (Auto) Urine Creatinine Urine Total Protein Vancomycin Trough Rheumatoid Factor Complement C4 Miscellaneous Test Crossmatch 10/28/16 10/28/16 10/29/16 17:08 23:50 05:10 WBC RBC Hgb Hct MCV MCH MCHC RDW Plt Count Lymph % (Auto) [place] % (Auto) Lymph # [place] # Baso # Seg Neutrophils % Seg Neuts % (Manual) Lymphocytes % (Manual) Monocytes % (Manual) Eosinophils % (Manual) Basophils % (Manual) Nucleated RBC % Seg Neutrophils # Seg Neutrophils # Man Lymphocytes # (Manual) Monocytes # (Manual) Eosinophils # (Manual) PT INR Fibrinogen dRVVT Confirm Interp Factor V Activity POC ABG pH POC ABG pCO2 POC ABG pO2 Sodium Potassium Chloride Carbon Dioxide BUN Creatinine Glucose POC Glucose 109 H 110 H 124 H Lactic Acid Calcium Phosphorus Magnesium Direct Bilirubin ALT Alkaline Phosphatase Troponin T C-Reactive Protein Total Protein Albumin Triglycerides Cholesterol LDL Cholesterol Direct HDL Cholesterol Urine WBC (Auto) Urine Creatinine Urine Total Protein Vancomycin Trough Rheumatoid Factor Complement C4 Miscellaneous Test Crossmatch 10/29/16 10/29/16 10/29/16 07:45 07:45 12:19 WBC 14.7 H RBC 3.15 L Hgb 9.3 L Hct 28.9 L MCV MCH MCHC RDW 17.0 H Plt Count Lymph % (Auto) 11.9 L [place] % (Auto) 8.6 H Lymph # [place] # 1.3 H Baso # Seg Neutrophils % 78.1 H Seg Neuts % (Manual) Lymphocytes % (Manual) Monocytes % (Manual) Eosinophils % (Manual) Basophils % (Manual) Nucleated RBC % Seg Neutrophils # 11.4 H Seg Neutrophils # Man Lymphocytes # (Manual) Monocytes # (Manual) Eosinophils # (Manual) PT INR Fibrinogen dRVVT Confirm Interp Factor V Activity POC ABG pH POC ABG pCO2 POC ABG pO2 Sodium Potassium 5.1 H Chloride Carbon Dioxide 19 L BUN 78 H Creatinine 2.2 H Glucose 116 H POC Glucose 118 H Lactic Acid Calcium Phosphorus Magnesium Direct Bilirubin ALT Alkaline Phosphatase Troponin T C-Reactive Protein Total Protein Albumin Triglycerides Cholesterol LDL Cholesterol Direct HDL Cholesterol Urine WBC (Auto) Urine Creatinine Urine Total Protein Vancomycin Trough Rheumatoid Factor Complement C4 Miscellaneous Test Crossmatch 10/29/16 10/30/16 10/30/16 17:49 01:52 03:28 WBC RBC Hgb Hct MCV MCH MCHC RDW Plt Count Lymph % (Auto) [place] % (Auto) Lymph # [place] # Baso # Seg Neutrophils % Seg Neuts % (Manual) Lymphocytes % (Manual) Monocytes % (Manual) Eosinophils % (Manual) Basophils % (Manual) Nucleated RBC % Seg Neutrophils # Seg Neutrophils # Man Lymphocytes # (Manual) Monocytes # (Manual) Eosinophils # (Manual) PT INR Fibrinogen dRVVT Confirm Interp Factor V Activity POC ABG pH POC ABG pCO2 POC ABG pO2 Sodium Potassium 5.4 H Chloride 97.5 L Carbon Dioxide 19 L BUN 90 H Creatinine 2.5 H Glucose POC Glucose 120 H 129 H Lactic Acid Calcium Phosphorus 5.20 H Magnesium Direct Bilirubin ALT Alkaline Phosphatase Troponin T C-Reactive Protein Total Protein Albumin Triglycerides Cholesterol LDL Cholesterol Direct HDL Cholesterol Urine WBC (Auto) Urine Creatinine Urine Total Protein Vancomycin Trough Rheumatoid Factor Complement C4 Miscellaneous Test Crossmatch 10/30/16 10/30/16 10/30/16 03:28 08:19 08:19 WBC 11.6 H 15.9 H RBC 2.75 L 2.82 L Hgb 7.9 L 8.3 L Hct 24.2 L 25.2 L MCV MCH MCHC RDW 16.7 H 17.2 H Plt Count Lymph % (Auto) [place] % (Auto) 9.8 H Lymph # [place] # 1.1 H Baso # Seg Neutrophils % 74.2 H Seg Neuts % (Manual) Lymphocytes % (Manual) Monocytes % (Manual) Eosinophils % (Manual) Basophils % (Manual) Nucleated RBC % Seg Neutrophils # 8.6 H Seg Neutrophils # Man Lymphocytes # (Manual) Monocytes # (Manual) Eosinophils # (Manual) PT INR Fibrinogen dRVVT Confirm Interp Factor V Activity POC ABG pH POC ABG pCO2 POC ABG pO2 Sodium Potassium 5.3 H Chloride 97.4 L Carbon Dioxide 19 L BUN 93 H Creatinine 2.6 H Glucose POC Glucose Lactic Acid Calcium Phosphorus Magnesium Direct Bilirubin ALT Alkaline Phosphatase Troponin T C-Reactive Protein Total Protein Albumin Triglycerides Cholesterol LDL Cholesterol Direct HDL Cholesterol Urine WBC (Auto) Urine Creatinine Urine Total Protein Vancomycin Trough Rheumatoid Factor Complement C4 Miscellaneous Test Crossmatch 10/30/16 10/30/16 10/31/16 17:11 23:56 00:40 WBC RBC Hgb Hct MCV MCH MCHC RDW Plt Count Lymph % (Auto) [place] % (Auto) Lymph # [place] # Baso # Seg Neutrophils % Seg Neuts % (Manual) Lymphocytes % (Manual) Monocytes % (Manual) Eosinophils % (Manual) Basophils % (Manual) Nucleated RBC % Seg Neutrophils # Seg Neutrophils # Man Lymphocytes # (Manual) Monocytes # (Manual) Eosinophils # (Manual) PT INR Fibrinogen dRVVT Confirm Interp Factor V Activity POC ABG pH POC ABG pCO2 POC ABG pO2 Sodium Potassium Chloride Carbon Dioxide BUN Creatinine Glucose POC Glucose 106 H 117 H 120 H Lactic Acid Calcium Phosphorus Magnesium Direct Bilirubin ALT Alkaline Phosphatase Troponin T C-Reactive Protein Total Protein Albumin Triglycerides Cholesterol LDL Cholesterol Direct HDL Cholesterol Urine WBC (Auto) Urine Creatinine Urine Total Protein Vancomycin Trough Rheumatoid Factor Complement C4 Miscellaneous Test Crossmatch 10/31/16 10/31/16 10/31/16 05:43 07:15 07:15 WBC 12.1 H RBC 2.63 L Hgb 7.7 L Hct 23.3 L MCV MCH MCHC RDW 16.7 H Plt Count Lymph % (Auto) 11.7 L [place] % (Auto) 7.7 H Lymph # [place] # 0.9 H Baso # Seg Neutrophils % 78.0 H Seg Neuts % (Manual) Lymphocytes % (Manual) Monocytes % (Manual) Eosinophils % (Manual) Basophils % (Manual) Nucleated RBC % Seg Neutrophils # 9.4 H Seg Neutrophils # Man Lymphocytes # (Manual) Monocytes # (Manual) Eosinophils # (Manual) PT INR Fibrinogen dRVVT Confirm Interp Factor V Activity POC ABG pH POC ABG pCO2 POC ABG pO2 Sodium Potassium Chloride 96.4 L Carbon Dioxide 21 L BUN 99 H Creatinine 2.6 H Glucose 144 H POC Glucose 125 H Lactic Acid Calcium Phosphorus 4.80 H Magnesium Direct Bilirubin ALT Alkaline Phosphatase Troponin T C-Reactive Protein Total Protein Albumin Triglycerides Cholesterol LDL Cholesterol Direct HDL Cholesterol Urine WBC (Auto) Urine Creatinine Urine Total Protein Vancomycin Trough Rheumatoid Factor Complement C4 Miscellaneous Test Crossmatch 10/31/16 10/31/16 11/01/16 11:46 18:34 00:20 WBC RBC Hgb Hct MCV MCH MCHC RDW Plt Count Lymph % (Auto) [place] % (Auto) Lymph # [place] # Baso # Seg Neutrophils % Seg Neuts % (Manual) Lymphocytes % (Manual) Monocytes % (Manual) Eosinophils % (Manual) Basophils % (Manual) Nucleated RBC % Seg Neutrophils # Seg Neutrophils # Man Lymphocytes # (Manual) Monocytes # (Manual) Eosinophils # (Manual) PT INR Fibrinogen dRVVT Confirm Interp Factor V Activity POC ABG pH POC ABG pCO2 POC ABG pO2 Sodium Potassium Chloride Carbon Dioxide BUN Creatinine Glucose POC Glucose 159 H 140 H 132 H Lactic Acid Calcium Phosphorus Magnesium Direct Bilirubin ALT Alkaline Phosphatase Troponin T C-Reactive Protein Total Protein Albumin Triglycerides Cholesterol LDL Cholesterol Direct HDL Cholesterol Urine WBC (Auto) Urine Creatinine Urine Total Protein Vancomycin Trough Rheumatoid Factor Complement C4 Miscellaneous Test Crossmatch 11/01/16 11/01/16 11/01/16 04:55 04:55 06:11 WBC 11.2 H RBC 2.68 L Hgb 7.5 L Hct 23.7 L MCV MCH MCHC RDW 16.1 H Plt Count Lymph % (Auto) [place] % (Auto) 9.8 H Lymph # [place] # 1.1 H Baso # Seg Neutrophils % 70.8 H Seg Neuts % (Manual) Lymphocytes % (Manual) Monocytes % (Manual) Eosinophils % (Manual) Basophils % (Manual) Nucleated RBC % Seg Neutrophils # 7.9 H Seg Neutrophils # Man Lymphocytes # (Manual) Monocytes # (Manual) Eosinophils # (Manual) PT INR Fibrinogen dRVVT Confirm Interp Factor V Activity POC ABG pH POC ABG pCO2 POC ABG pO2 Sodium Potassium 3.3 L D Chloride Carbon Dioxide BUN 61 H Creatinine 1.9 H Glucose 114 H POC Glucose 115 H Lactic Acid Calcium Phosphorus 1.80 L D Magnesium Direct Bilirubin ALT Alkaline Phosphatase Troponin T C-Reactive Protein Total Protein Albumin Triglycerides Cholesterol LDL Cholesterol Direct HDL Cholesterol Urine WBC (Auto) Urine Creatinine Urine Total Protein Vancomycin Trough Rheumatoid Factor Complement C4 Miscellaneous Test Crossmatch 11/01/16 11/01/16 11/01/16 12:29 18:23 23:58 WBC RBC Hgb Hct MCV MCH MCHC RDW Plt Count Lymph % (Auto) [place] % (Auto) Lymph # [place] # Baso # Seg Neutrophils % Seg Neuts % (Manual) Lymphocytes % (Manual) Monocytes % (Manual) Eosinophils % (Manual) Basophils % (Manual) Nucleated RBC % Seg Neutrophils # Seg Neutrophils # Man Lymphocytes # (Manual) Monocytes # (Manual) Eosinophils # (Manual) PT INR Fibrinogen dRVVT Confirm Interp Factor V Activity POC ABG pH POC ABG pCO2 POC ABG pO2 Sodium Potassium Chloride Carbon Dioxide BUN Creatinine Glucose POC Glucose 142 H 143 H 128 H Lactic Acid Calcium Phosphorus Magnesium Direct Bilirubin ALT Alkaline Phosphatase Troponin T C-Reactive Protein Total Protein Albumin Triglycerides Cholesterol LDL Cholesterol Direct HDL Cholesterol Urine WBC (Auto) Urine Creatinine Urine Total Protein Vancomycin Trough Rheumatoid Factor Complement C4 Miscellaneous Test Crossmatch 11/02/16 11/02/16 04:16 05:29 WBC RBC Hgb Hct MCV MCH MCHC RDW Plt Count Lymph % (Auto) [place] % (Auto) Lymph # [place] # Baso # Seg Neutrophils % Seg Neuts % (Manual) Lymphocytes % (Manual) Monocytes % (Manual) Eosinophils % (Manual) Basophils % (Manual) Nucleated RBC % Seg Neutrophils # Seg Neutrophils # Man Lymphocytes # (Manual) Monocytes # (Manual) Eosinophils # (Manual) PT INR Fibrinogen dRVVT Confirm Interp Factor V Activity POC ABG pH POC ABG pCO2 POC ABG pO2 Sodium Potassium 3.1 L Chloride Carbon Dioxide BUN 73 H Creatinine 2.3 H Glucose 112 H POC Glucose 135 H Lactic Acid Calcium Phosphorus Magnesium Direct Bilirubin ALT Alkaline Phosphatase Troponin T C-Reactive Protein Total Protein Albumin Triglycerides Cholesterol LDL Cholesterol Direct HDL Cholesterol Urine WBC (Auto) Urine Creatinine Urine Total Protein Vancomycin Trough Rheumatoid Factor Complement C4 Miscellaneous Test Crossmatch Allied health notes reviewed: RT
[2016-11-02] MEDS: REGLAN PO SCH ×3 (13:00→23:04)
[2016-11-02] MEDS: TRANSDERM-SCOP TD SCH (14:21)
--- NOTE | 2016-11-02 14:59 | Progress Note ---
Assessment and Plan - Patient Problems (1) Acute respiratory failure with hypoxia Current Visit: Yes Status: Acute (2) Dislodged gastrostomy tube Current Visit: Yes Status: Acute Plan to address problem: continue wound care and antibiotics Subjective Date of service: 11/02/16 Patient Reports: Positive: other (undergoing HD) Objective Vital Signs - 12hr 11/02/16 11/02/16 11/02/16 03:00 03:30 03:45 Temperature 100.4 F H Pulse Rate 113 H 109 H Respiratory 19 21 Rate Blood Pressure 165/96 153/96 O2 Sat by Pulse 100 100 Oximetry O2 Sat by Pulse Oximetry [ Assessment] O2 Sat by Pulse Oximetry [ Bilateral Throughout] 11/02/16 11/02/16 11/02/16 04:00 04:30 05:01 Temperature Pulse Rate 107 H 112 H 107 H Respiratory 20 21 19 Rate Blood Pressure 145/100 145/100 158/92 O2 Sat by Pulse 100 100 100 Oximetry O2 Sat by Pulse Oximetry [ Assessment] O2 Sat by Pulse Oximetry [ Bilateral Throughout] 11/02/16 11/02/16 11/02/16 05:31 06:01 06:30 Temperature Pulse Rate 109 H 116 H 109 H Respiratory 21 17 21 Rate Blood Pressure 201/99 201/99 204/101 O2 Sat by Pulse 100 100 100 Oximetry O2 Sat by Pulse Oximetry [ Assessment] O2 Sat by Pulse Oximetry [ Bilateral Throughout] 11/02/16 11/02/16 11/02/16 07:00 07:30 07:53 Temperature Pulse Rate 107 H 107 H Respiratory 21 20 Rate Blood Pressure 194/98 202/103 O2 Sat by Pulse 100 100 99 Oximetry O2 Sat by Pulse Oximetry [ Assessment] O2 Sat by Pulse Oximetry [ Bilateral Throughout] 11/02/16 11/02/16 11/02/16 08:00 08:30 08:35 Temperature 99 F Pulse Rate 105 H 106 H Respiratory 21 19 Rate Blood Pressure 211/106 212/109 O2 Sat by Pulse 100 100 97 Oximetry O2 Sat by Pulse 97 Oximetry [ Assessment] O2 Sat by Pulse Oximetry [ Bilateral Throughout] 11/02/16 11/02/16 11/02/16 09:00 09:30 10:00 Temperature Pulse Rate 115 H 112 H 121 H Respiratory 32 H 37 H 37 H Rate Blood Pressure 224/116 211/106 219/103 O2 Sat by Pulse 100 95 97 Oximetry O2 Sat by Pulse Oximetry [ Assessment] O2 Sat by Pulse Oximetry [ Bilateral Throughout] 11/02/16 11/02/16 11/02/16 10:15 10:31 10:48 Temperature Pulse Rate 121 H 98 H 99 H Respiratory 27 H Rate Blood Pressure 219/103 182/78 182/78 O2 Sat by Pulse 98 Oximetry O2 Sat by Pulse Oximetry [ Assessment] O2 Sat by Pulse Oximetry [ Bilateral Throughout] 11/02/16 11/02/16 11/02/16 11:00 11:30 11:56 Temperature Pulse Rate 119 H 104 H 98 H Respiratory 36 H 36 H Rate Blood Pressure 174/88 185/92 185/92 O2 Sat by Pulse 97 97 Oximetry O2 Sat by Pulse Oximetry [ Assessment] O2 Sat by Pulse Oximetry [ Bilateral Throughout] 11/02/16 11/02/16 11/02/16 12:00 12:15 12:30 Temperature 98.6 F 98.6 F Pulse Rate 97 H 97 H 97 H Respiratory 36 H 35 H 40 H Rate Blood Pressure 170/82 174/88 174/88 O2 Sat by Pulse 96 94 Oximetry O2 Sat by Pulse Oximetry [ Assessment] O2 Sat by Pulse 95 Oximetry [ Bilateral Throughout] 11/02/16 11/02/16 11/02/16 12:45 13:00 13:07 Temperature Pulse Rate 94 H 99 H 97 H Respiratory 39 H Rate Blood Pressure 175/88 171/87 171/87 O2 Sat by Pulse 94 Oximetry O2 Sat by Pulse Oximetry [ Assessment] O2 Sat by Pulse Oximetry [ Bilateral Throughout] 11/02/16 11/02/16 11/02/16 13:15 13:30 13:32 Temperature Pulse Rate 103 H 105 H 104 H Respiratory 38 H Rate Blood Pressure 173/90 173/90 168/92 O2 Sat by Pulse 94 Oximetry O2 Sat by Pulse Oximetry [ Assessment] O2 Sat by Pulse Oximetry [ Bilateral Throughout] 11/02/16 11/02/16 11/02/16 13:45 14:00 14:15 Temperature Pulse Rate 107 H 109 H 105 H Respiratory 40 H Rate Blood Pressure 175/96 179/96 179/95 O2 Sat by Pulse 94 Oximetry O2 Sat by Pulse Oximetry [ Assessment] O2 Sat by Pulse Oximetry [ Bilateral Throughout] 11/02/16 11/02/16 14:30 14:48 Temperature Pulse Rate 105 H 109 H Respiratory 34 H Rate Blood Pressure 163/89 164/90 O2 Sat by Pulse 94 Oximetry O2 Sat by Pulse Oximetry [ Assessment] O2 Sat by Pulse Oximetry [ Bilateral Throughout] - Abdomen other (port & G tube sites with ongoing drainage) - Labs 11/01/16 04:55 11/02/16 04:16 Diabetes panel 11/02/16 Range/Units 04:16 Sodium 142 (137-145) mmol/L Potassium 3.1 L (3.6-5.0) mmol/L Chloride 98.0 (98-107) mmol/L Carbon Dioxide 27 (22-30) mmol/L BUN 73 H (7-17) mg/dL Creatinine 2.3 H (0.7-1.2) mg/dL Glucose 112 H (65-100) mg/dL Calcium 8.7 (8.4-10.2) mg/dL Calcium panel 11/02/16 Range/Units 04:16 Calcium 8.7 (8.4-10.2) mg/dL Phosphorus 2.50 D (2.5-4.5) mg/dL Pituitary panel 11/02/16 Range/Units 04:16 Sodium 142 (137-145) mmol/L Potassium 3.1 L (3.6-5.0) mmol/L Chloride 98.0 (98-107) mmol/L Carbon Dioxide 27 (22-30) mmol/L BUN 73 H (7-17) mg/dL Creatinine 2.3 H (0.7-1.2) mg/dL Glucose 112 H (65-100) mg/dL Calcium 8.7 (8.4-10.2) mg/dL Adrenal panel 11/02/16 Range/Units 04:16 Sodium 142 (137-145) mmol/L Potassium 3.1 L (3.6-5.0) mmol/L Chloride 98.0 (98-107) mmol/L Carbon Dioxide 27 (22-30) mmol/L BUN 73 H (7-17) mg/dL Creatinine 2.3 H (0.7-1.2) mg/dL Glucose 112 H (65-100) mg/dL Calcium 8.7 (8.4-10.2) mg/dL
[2016-11-02] MEDS: HEPARIN IV PRN (16:16)
[2016-11-02] MEDS: DIFLUCAN 200 MG/100 ML BAG IV SCH (17:00)
[2016-11-02] MEDS ORDERED: TPN ADULT 2,016 ML IV SCH (20:00)
[2016-11-03] MEDS: MORPHINE IV PRN ×2 (05:00→12:23)
[2016-11-03] MEDS: LOPRESSOR PO SCH ×3 (06:06→18:46)
[2016-11-03] MEDS: REGLAN PO SCH (06:06)
[2016-11-03 07:05] LABS: BUN/Creatinine Ratio 27.33; Calcium 8.4 mg/dL (8.4-10.2)
[2016-11-03] MEDS ORDERED: NACL 0.9% IV ONE ×2 (08:00→14:00)
[2016-11-03] MEDS ORDERED: SODIUM PHOSPHATE IV ONE ×2 (08:00→14:00)
[2016-11-03] MEDS ORDERED: MAGNESIUM SULFATE 2GM/50ML 2 GM/50 ML BAG IV ONE (08:00)
--- NOTE | 2016-11-03 09:33 | Progress Note ---
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 * Acute hypoxic respiratory failure * Left renal artery stenosis * Metabolic acidosis - improved * Anemia * Hyponatremia - multifactorial Plan: * hemodialysis MWF and prn * monitor for renal recovery * Rate control per cardiology * 4 k bath with dialysis * needs to increase k in tpn * Abx/antifungal per ID * Vent management per critical care * Dose medications for renal function * Avoid potential nephrotoxins Subjective Date of service: 11/03/16 Principal diagnosis: Acute resp failure on MVS; S/P Acute CVA; Acute Encephalopathy; JUANITA Interval history: no new event Objective - Exam Narrative Exam: Gen. appearance: Patient lying in bed, no apparent distress, 4. restraints HEENT: Normocephalic, atraumatic, pupils equally round and reactive to light, extraocular movement intact, and no sclericterus,. No JVD or thyromegaly or nodule,neck supple, no carotid bruit ,mucous membranes moist, unable to examine oral cavity Heart: S1, S2, regular rate and rhythm Lungs: Clear to auscultation bilaterally, breathing comfortable Abdomen: Positive bowel sounds, nontender, nondistended, no organomegaly Extremity: No edema, cyanosis, clubbing Skin: No rash, nodules, warm, dry Neuro: Difficult to assess, facial droop, moves all 4 extremities - Vital Signs Vital signs: Vital Signs - 12hr 11/02/16 11/02/16 11/02/16 22:00 22:31 22:53 Temperature Pulse Rate 96 H 88 89 Respiratory 22 18 23 Rate Blood Pressure 110/80 110/80 110/80 O2 Sat by Pulse 100 99 100 Oximetry O2 Sat by Pulse Oximetry [ Assessment] 11/02/16 11/02/16 11/02/16 23:00 23:04 23:31 Temperature Pulse Rate 93 H 91 H 99 H Respiratory 21 24 Rate Blood Pressure 108/81 108/81 108/81 O2 Sat by Pulse 100 93 Oximetry O2 Sat by Pulse Oximetry [ Assessment] 11/02/16 11/02/16 11/03/16 23:40 23:52 00:00 Temperature Pulse Rate 87 85 Respiratory 17 18 Rate Blood Pressure 108/81 111/75 O2 Sat by Pulse 100 100 100 Oximetry O2 Sat by Pulse 100 Oximetry [ Assessment] 11/03/16 11/03/16 11/03/16 00:31 01:00 01:31 Temperature Pulse Rate 87 87 86 Respiratory 15 26 H 22 Rate Blood Pressure 111/75 120/75 120/75 O2 Sat by Pulse 100 100 100 Oximetry O2 Sat by Pulse Oximetry [ Assessment] 11/03/16 11/03/16 11/03/16 02:01 02:31 03:00 Temperature Pulse Rate 86 107 H 98 H Respiratory 18 19 25 H Rate Blood Pressure 108/78 120/75 133/83 O2 Sat by Pulse 100 99 100 Oximetry O2 Sat by Pulse Oximetry [ Assessment] 11/03/16 11/03/16 11/03/16 03:31 03:55 04:00 Temperature 98.7 F Pulse Rate 109 H 108 H 109 H Respiratory 23 18 Rate Blood Pressure 133/83 133/83 156/86 O2 Sat by Pulse 99 99 100 Oximetry O2 Sat by Pulse Oximetry [ Assessment] 11/03/16 11/03/16 11/03/16 04:31 05:01 05:31 Temperature Pulse Rate 107 H 129 H 128 H Respiratory 22 24 22 Rate Blood Pressure 156/86 156/86 156/86 O2 Sat by Pulse 100 98 Oximetry O2 Sat by Pulse Oximetry [ Assessment] 11/03/16 11/03/16 11/03/16 06:00 06:06 06:31 Temperature Pulse Rate 123 H 120 H 108 H Respiratory 26 H 25 H Rate Blood Pressure 203/116 203/116 170/96 O2 Sat by Pulse 100 Oximetry O2 Sat by Pulse Oximetry [ Assessment] 11/03/16 11/03/16 07:00 08:00 Temperature 98.4 F Pulse Rate 95 H Respiratory 22 Rate Blood Pressure 165/91 O2 Sat by Pulse 100 Oximetry O2 Sat by Pulse Oximetry [ Assessment] - Lab 11/01/16 04:55 11/03/16 06:00 Most recent lab results Calcium 8.4 mg/dL (8.4-10.2) 11/03/16 06:00 Phosphorus 1.60 mg/dL (2.5-4.5) L D 11/03/16 06:00 Magnesium 1.50 mg/dL (1.7-2.3) L 11/03/16 06:00 Urine Creatinine TNR 10/29/16 07:45 Urine Sodium 36 mEq/L 09/16/16 19:19 Urine Total Protein 16 mg/dL (5-11.8) H 09/16/16 19:19
--- NOTE | 2016-11-03 10:45 | Progress Note ---
Assessment and Plan Assessment and plan: 46-year-old woman with a history of hypertension, diabetes, asthma, hyperlipidemia, chronic kidney disease and anxiety , who was brought in by family because, she couldn't get her words out, her face was also twisted, she was admitted for acute CVA and accelerated hypertension, she had a hx of poor adherence with her medications, and uncontrolled htn. Patient's blood pressure systolically on admission was noted be greater than 260. TPA was started but this was discontinued after 5 minutes because her blood pressure became uncontrolled. The TPA was not initiated again because the patient was outside the TPA window. -Severe Sepsis with septic shock, recurrent. Patient with multiple episodes of sepsis. Initial episode due to presumed aspiration pneumonia and septic episode on 09/23 from candidemia then a third episode from peritonitis from gastric perforation from dislodged PEG , there was an abscess in the abdomen present at that time that was draining pus. +/-UTI. The latest episode was related to surgical site infection. Fevers have now resolved. Continue antibiotics per ID. Surgical wound infection/gram-negative sepsis/candidemia/peritonitis PEG has been removed Has already completed 14 days of abx and antifungals, ID input appreciated She will need to be on tube feeds through NG tube for a month, and then either a gastrostomy or jejunostomy tube replaced after her GI wounds have healed and infection is cleared JUANITA Likely due to vasomotor nephropathy and ATN given sepsis Nephrology input appreciated, continue hemodialysis Acute CVA with infarct. sp TPA Continue neuro checks. Neurology input appreciated, CT shows continued evolution of left MCA infarct with slight mass effect and edema, and there is no hemorrhage - PRINCE showed hyperdynamic with ef of 75%, neither clot nor septal defect seen - MRA Brain shows near complete occlusion of M2 and M3 of the left MCA - Repeat CT scan done on 09/11, shows stable findings - carotid doppler negative - Echo shows preserved systolic function but does show some left ventricular diastolic dysfunction - continue asa and statin for secondary ppx Persistent vegetative state This patient's needs placement at either hospice or SNF -She was denied for LTACH Acute hypoxic respiratory failure requiring MV >96hrs Status post tracheostomy, continue mechanical ventilation Nosocomial acquired aspiration pneumonia/sepsis Completed a course of antibiotics Asthma/COPD exacerbation Patient is on antibiotics, steroids and nebs, continue MV, intubated UTI Has completed a course of antibiotics Acute Toxic Metabolic encephalopathy. Likely multifactorial, mostly secondary to evolution of CVA for restlessness, we checked troponin, EKG, CXR which were all negative Hypertensive Emergency Continue current medications Paroxysmal atrial fibrillation with rapid ventricular rate, failed cardioversion Continue current medications, Not a candidate for anticoagulation secondary to anemia thrombocytopenia and massive CVA Hypokalemia/Hypomagnesemia/hypophosphatemia. Replete electrolytes as needed. Diabetes type 2. Continue sliding-scale regular insulin and Accu-Cheks. Hyperlipidemia. Continue statin Nutrition continue tube feeds Anemia likely due to sepsis/acute illness Received one unit PRBC, stable Case discussed with the patient's family and pulmonology her POA is her Brother, Jam [phone] Dispo. Very poor prognosis. Plan for SNIF placement, she was ready denied by LTAC The high probability of a clinically significant, sudden or life threatening deterioration of the [cardiovascular and neurological] system(s) required my full and direct attention, intervention and personal management. The aggregate critical care time was [33] minutes. This time is in addition to time spent performing reported procedures but includes the following: [] Data Review and interpretation [] Patient assessment and monitoring of vital signs [] Documentation [] Medication orders and management History Interval history: She opens her eyes, but does not obey commands. Has tracheostomy in place Hospitalist Physical - Physical exam Narrative exam: General: Opens eyes, no distress HEENT: MMM, EOMI cardiac: S1-S2 heard lungs: ventilated breath sounds abdomen: soft, nontender, nondistended bowel sounds positive extremities: no edema clubbing or cyanosis Skin: no rash or lesion Neuro: Status post tracheostomy, opens eyes, does not obey commands, right- sided weakness - Constitutional Vitals: Temp Pulse Resp BP Pulse Ox 98.4 F 93 H 22 166/89 100 11/03/16 08:00 11/03/16 09:10 11/03/16 07:00 11/03/16 09:10 11/03/16 09:10 General appearance: Present: no acute distress, obese, other (on vent, non- responsive) Results - Labs CBC & Chem 7: 11/01/16 04:55 11/05/16 03:10 Labs: Laboratory Last Values WBC 11.2 K/mm3 (4.5-11.0) H 11/01/16 04:55 RBC 2.68 M/mm3 (3.65-5.03) L 11/01/16 04:55 Hgb 7.5 gm/dl (10.1-14.3) L 11/01/16 04:55 Hct 23.7 % (30.3-42.9) L 11/01/16 04:55 MCV 89 fl (79-97) 11/01/16 04:55 MCH 28 pg (28-32) 11/01/16 04:55 MCHC 32 % (30-34) 11/01/16 04:55 RDW 16.1 % (13.2-15.2) H 11/01/16 04:55 Plt Count 229 K/mm3 (140-440) 11/01/16 04:55 Lymph % (Auto) 16.7 % (13.4-35.0) 11/01/16 04:55 [place] % (Auto) 9.8 % (0.0-7.3) H 11/01/16 04:55 Eos % (Auto) 1.7 % (0.0-4.3) 11/01/16 04:55 Baso % (Auto) 1.0 % (0.0-1.8) 11/01/16 04:55 Lymph # 1.9 K/mm3 (1.2-5.4) 11/01/16 04:55 [place] # 1.1 K/mm3 (0.0-0.8) H 11/01/16 04:55 Eos # 0.2 K/mm3 (0.0-0.4) 11/01/16 04:55 Baso # 0.1 K/mm3 (0.0-0.1) 11/01/16 04:55 Add Manual Diff Complete 10/27/16 06:30 Total Counted 100 10/27/16 06:30 Seg Neutrophils % 70.8 % (40.0-70.0) H 11/01/16 04:55 Seg Neuts % (Manual) 78.0 % (40.0-70.0) H 10/27/16 06:30 Band Neutrophils % 0 % 10/27/16 06:30 Lymphocytes % (Manual) 14.0 % (13.4-35.0) 10/27/16 06:30 Reactive Lymphs % (Man) 0 % 10/27/16 06:30 Monocytes % (Manual) 7.0 % (0.0-7.3) 10/27/16 06:30 Eosinophils % (Manual) 0 % (0.0-4.3) 10/27/16 06:30 Basophils % (Manual) 1.0 % (0.0-1.8) 10/27/16 06:30 Metamyelocytes % 0 % 10/27/16 06:30 Myelocytes % 0 % 10/27/16 06:30 Promyelocytes % 0 % 10/27/16 06:30 Blast Cells % 0 % 10/27/16 06:30 Nucleated RBC % 2.0 % (0.0-0.9) H 10/27/16 06:30 Seg Neutrophils # 7.9 K/mm3 (1.8-7.7) H 11/01/16 04:55 Seg Neutrophils # Man 10.8 K/mm3 (1.8-7.7) H 10/27/16 06:30 Band Neutrophils # 0.0 K/mm3 10/27/16 06:30 Lymphocytes # (Manual) 1.9 K/mm3 (1.2-5.4) 10/27/16 06:30 Abs React Lymphs (Man) 0.0 K/mm3 10/27/16 06:30 Monocytes # (Manual) 1.0 K/mm3 (0.0-0.8) H 10/27/16 06:30 Eosinophils # (Manual) 0.0 K/mm3 (0.0-0.4) 10/27/16 06:30 Basophils # (Manual) 0.1 K/mm3 (0.0-0.1) 10/27/16 06:30 Metamyelocytes # 0.0 K/mm3 10/27/16 06:30 Myelocytes # 0.0 K/mm3 10/27/16 06:30 Promyelocytes # 0.0 K/mm3 10/27/16 06:30 Blast Cells # 0.0 K/mm3 10/27/16 06:30 Pathologist Review 09/13/16 04:00 WBC Morphology Not Reportable 10/27/16 06:30 Hypersegmented Neuts Not Reportable 10/27/16 06:30 Hyposegmented Neuts Not Reportable 10/27/16 06:30 Hypogranular Neuts Not Reportable 10/27/16 06:30 Smudge Cells Not Reportable 10/27/16 06:30 Toxic Granulation Not Reportable 10/27/16 06:30 Toxic Vacuolation Not Reportable 10/27/16 06:30 Dohle Bodies Not Reportable 10/27/16 06:30 Pelger-Huet Anomaly Not Reportable 10/27/16 06:30 Jasmina Rods Not Reportable 10/27/16 06:30 Platelet Estimate Cons 10/27/16 06:30 Clumped Platelets Not Reportable 10/27/16 06:30 Plt Clumps, EDTA Not Reportable 10/27/16 06:30 Large Platelets Few 10/27/16 06:30 Giant Platelets Not Reportable 10/27/16 06:30 Platelet Satelliting Not Reportable 10/27/16 06:30 Plt Morphology Comment Not Reportable 10/27/16 06:30 RBC Morphology Not Reportable 10/27/16 06:30 Dimorphic RBCs Not Reportable 10/27/16 06:30 Polychromasia Not Reportable 10/27/16 06:30 Hypochromasia Not Reportable 10/27/16 06:30 Poikilocytosis Not Reportable 10/27/16 06:30 Anisocytosis 1+ 10/27/16 06:30 Microcytosis Not Reportable 10/27/16 06:30 Macrocytosis Not Reportable 10/27/16 06:30 Spherocytes Not Reportable 10/27/16 06:30 Pappenheimer Bodies Not Reportable 10/27/16 06:30 Sickle Cells Not Reportable 10/27/16 06:30 Target Cells Not Reportable 10/27/16 06:30 Tear Drop Cells Not Reportable 10/27/16 06:30 Ovalocytes Not Reportable 10/27/16 06:30 Stomatocytes Few 10/06/16 03:50 Helmet Cells Not Reportable 10/27/16 06:30 [place] Bodies Not Reportable 10/27/16 06:30 [place] Rings Not Reportable 10/27/16 06:30 Chuck Cells Not Reportable 10/27/16 06:30 Bite Cells Not Reportable 10/27/16 06:30 Crenated Cell Not Reportable 10/27/16 06:30 Elliptocytes Not Reportable 10/27/16 06:30 Acanthocytes (Spur) Not Reportable 10/27/16 06:30 Rouleaux Not Reportable 10/27/16 06:30 Hemoglobin C Crystals Not Reportable 10/27/16 06:30 Schistocytes Not Reportable 10/27/16 06:30 Malaria parasites Not Reportable 10/27/16 06:30 ESR > 140.0 mm/Hr (0-20) 09/08/16 11:48 Jun Bodies Not Reportable 10/27/16 06:30 Hem Pathologist Commnt No 10/27/16 06:30 PT 19.0 Sec. (12.2-14.9) H 10/09/16 03:45 INR 1.51 (0.87-1.13) H 10/09/16 03:45 APTT 33.0 Sec. (24.2-36.6) 10/09/16 03:45 Thrombin Time 16.8 Sec. (15.1-19.6) 09/03/16 00:10 Fibrinogen 750 mg/dl (211-480) H 09/08/16 11:48 Lupus Anticoagulant see below 09/12/16 09:59 LA PTT Baseline See scanned report 09/12/16 09:59 dRVVT Confirm Interp Positive (Negative) H 09/12/16 09:59 dRVVT Screen 50:50 See scanned report 09/12/16 09:59 dRVVT Mix Interpret See scanned report 09/12/16 09:59 Protein C Antigen 122 % (70-140) 09/08/16 15:35 Free Protein S 97 % normal (50-147) 09/08/16 15:35 Total Protein S 109 % (70-140) 09/08/16 15:35 Antithrombin III Ag 100 % (80-120) 09/08/16 15:35 Heparin Anti-Xa, Unfract Negative (Negative) 09/29/16 13:35 Factor V Activity 182 % (65-150) H 09/08/16 15:35 POC ABG pH 7.561 (7.35-7.45) H 10/16/16 20:48 POC ABG pCO2 24.4 (35-45) L 10/16/16 20:48 POC ABG pO2 77 (80-105) L 10/16/16 20:48 POC ABG HCO3 21.9 10/16/16 20:48 POC ABG Total CO2 23 10/16/16 20:48 POC ABG O2 Sat 97 10/16/16 20:48 POC ABG Base Excess 0 10/16/16 20:48 FiO2 25 % 10/16/16 20:48 Sodium 139 mmol/L (137-145) 11/03/16 06:00 Potassium 3.7 mmol/L (3.6-5.0) 11/03/16 06:00 Chloride 96.7 mmol/L (98-107) L 11/03/16 06:00 Carbon Dioxide 25 mmol/L (22-30) 11/03/16 06:00 Anion Gap 21 mmol/L 11/03/16 06:00 BUN 41 mg/dL (7-17) H 11/03/16 06:00 Creatinine 1.5 mg/dL (0.7-1.2) H 11/03/16 06:00 Estimated GFR 45 ml/min 11/03/16 06:00 BUN/Creatinine Ratio 27.33 % 11/03/16 06:00 Glucose 145 mg/dL (65-100) H 11/03/16 06:00 POC Glucose 115 (70-105) H 11/02/16 22:54 Osmolality 351 Mosm/kg 09/16/16 11:47 Lactic Acid 4.50 mmol/L (0.7-2.0) H* 09/28/16 07:25 Calcium 8.4 mg/dL (8.4-10.2) 11/03/16 06:00 Phosphorus 1.60 mg/dL (2.5-4.5) L D 11/03/16 06:00 Magnesium 1.50 mg/dL (1.7-2.3) L 11/03/16 06:00 Total Bilirubin 0.30 mg/dL (0.1-1.2) 10/17/16 04:24 Direct Bilirubin 0.3 mg/dL (0-0.2) H 10/10/16 05:00 Indirect Bilirubin 0.1 mg/dL 10/10/16 05:00 AST 39 units/L (5-40) 10/17/16 04:24 ALT 13 units/L (7-56) 10/17/16 04:24 Alkaline Phosphatase 138 units/L (35-129) H 10/17/16 04:24 Ammonia 27.0 umol/L (25-60) 09/07/16 08:37 Total Creatine Kinase 121 units/L (30-135) 09/29/16 20:12 CK-MB (CK-2) < 1.0 ng/mL (0.0-4.0) 09/29/16 20:12 CK-MB (CK-2) Rel Index 0.8 (0-4) 09/29/16 20:12 Troponin T 0.204 ng/mL (0.00-0.029) H* 09/29/16 20:12 C-Reactive Protein 15.80 mg/dL (0.00-1.30) H 10/11/16 04:15 Total Protein 6.2 g/dL (6.3-8.2) L 10/17/16 04:24 Albumin 1.5 g/dL (3.9-5) L 10/17/16 04:24 Albumin/Globulin Ratio 0.3 % 10/17/16 04:24 Triglycerides 137 mg/dL (2-149) 09/29/16 20:12 Cholesterol 31 mg/dL (50-199) L 09/29/16 20:12 LDL Cholesterol Direct 4 mg/dL (50-130) L 09/29/16 20:12 HDL Cholesterol 3 mg/dL (40-59) L 09/29/16 20:12 Cholesterol/HDL Ratio 10.33 % 09/29/16 20:12 Angiotensin Convert Enz See scanned report 09/08/16 11:48 Renin 0.99 ng/mL/h (0.25-5.82) 10/07/16 10:56 Aldosterone <1 ng/dL () 10/07/16 10:56 Aldosterone/Renin Dir see below 10/07/16 10:56 Serotonin Release Assay See scanned report 09/29/16 13:35 TSH 1.010 mlU/mL (0.270-4.200) 09/07/16 08:37 HCG, Qual Negative (Negative) 09/03/16 00:10 Urine Color [place] (Yellow) 10/07/16 18:30 Urine Turbidity Turbid (Clear) 10/07/16 18:30 Urine pH 7.0 (5.0-7.0) 10/07/16 18:30 Ur Specific [place] 1.012 (1.003-1.030) 10/07/16 18:30 Urine Protein 100 mg/dl mg/dL (Negative) 10/07/16 18:30 Urine Glucose (UA) Neg mg/dL (Negative) 10/07/16 18:30 Urine Ketones Neg mg/dL (Negative) 10/07/16 18:30 Urine Blood Lg (Negative) 10/07/16 18:30 Urine Nitrite Neg (Negative) 10/07/16 18:30 Urine Bilirubin Neg (Negative) 10/07/16 18:30 Urine Urobilinogen < 2.0 mg/dL (<2.0) 10/07/16 18:30 Ur Leukocyte Esterase Lg (Negative) 10/07/16 18:30 Urine WBC (Auto) > 182.0 /HPF (0.0-6.0) H 10/07/16 18:30 Urine RBC (Auto) > 182.0 /HPF (0.0-6.0) 10/07/16 18:30 U Epithel Cells (Auto) 1.0 /HPF (0-13.0) 10/07/16 18:30 Urine Bacteria (Auto) 3+ /HPF (Negative) 10/07/16 18:30 Urine WBC Clumps 2+ /HPF 09/07/16 02:47 Hyaline Casts 4 /LPF 09/07/16 02:47 Urine Mucus Few /HPF 10/07/16 18:30 Urine Yeast (Budding) 3+ /HPF 10/07/16 18:30 Urine Eosinophils None seen (None Seen) 09/07/16 16:00 Urine Total Volume TNR 10/29/16 07:45 Urine Creatinine TNR 10/29/16 07:45 Height (in) TNR 10/29/16 07:45 Weight (lb) TNR 10/29/16 07:45 Creatinine Clearance TNR 10/29/16 07:45 Urine Sodium 36 mEq/L 09/16/16 19:19 Urine Total Protein 16 mg/dL (5-11.8) H 09/16/16 19:19 Vancomycin Trough 2.3 ug/mL (5.0-20.0) L 09/21/16 13:00 Random Vancomycin 17.0 ug/mL (0-40.0) 10/20/16 06:00 Urine Opiates Screen Presumptive negative 09/03/16 15:11 Urine Methadone Screen Presumptive positive 09/03/16 15:11 Ur Barbiturates Screen Presumptive positive 09/03/16 15:11 Ur Phencyclidine Scrn Presumptive negative 09/03/16 15:11 Ur Amphetamines Screen Presumptive negative 09/03/16 15:11 U Benzodiazepines Scrn Presumptive negative 09/03/16 15:11 Urine Cocaine Screen Presumptive negative 09/03/16 15:11 U Marijuana (THC) Screen Presumptive positive 09/03/16 15:11 Drugs of Abuse Note Disclamer 09/03/16 15:11 Rheumatoid Factor 24 IU/ml (0-13) H 09/08/16 11:48 SAHIL Screen Negative (Negative) 09/07/16 09:20 Proteinase 3 (PR3) Ab <1.0 AI (<1.0) 09/07/16 09:20 Myeloperoxidase Ab <1.0 AI (<1.0) 09/07/16 09:20 Sjogren's Antibody <1.0 AI (<1.0) 09/08/16 15:35 Scl-70 Scleroderma Ab <1.0 AI (<1.0) 09/08/16 15:35 Centromere B Antibody <1.0 AI (<1.0) 09/08/16 12:02 Heparin-induced Plt Ab Negative (Negative) 09/29/16 13:35 UF Heparin High Dose 11 % Release 09/29/16 13:35 SUDHIR UFH Low Dose 0.1 6 % Release 09/29/16 13:35 SUDHIR UFH Low Dose 0.5 8 % Release 09/29/16 13:35 Cardiolipid IgG Ab <14 GPL (<=14) 09/12/16 09:59 Cardiolipid IgA Ab <11 APL (<=11) 09/12/16 09:59 Cardiolipid IgM Ab <12 MPL (<=12) 09/12/16 09:59 Complement C3 148 mg/dL (90-180) 09/07/16 09:20 Complement C4 58 mg/dL (16-47) H 09/07/16 09:20 RPR Nonreactive (Nonreactive) 09/08/16 11:48 Hepatitis A IgM Ab Non-reactive (NonReactive) 09/24/16 14:40 Hep Bs Antigen Non-reactive (Negative) 09/24/16 14:40 Hep B Core IgM Ab Non-reactive (NonReactive) 09/24/16 14:40 Hepatitis C Antibody Non-reactive (NonReactive) 09/24/16 14:40 HIV 1&2 Antibody Rapid Non react (Non React) 09/08/16 11:48 HIV P24 Antigen Non react (Non React) 09/08/16 11:48 Miscellaneous Test Flexitest 1 H 10/20/16 16:00 Blood Type A POSITIVE 10/24/16 Unknown Antibody Screen Negative 10/24/16 Unknown DELORIS Antibody Screen Negative 09/25/16 10:30 Crossmatch See Detail 10/24/16 Unknown
--- NOTE | 2016-11-03 11:07 | Progress Note ---
Assessment and Plan Advance tube feeds per protocol Once tube feeds reaching goal then d/c TPN Continue local wound care until healed ATBx per ID Subjective Date of service: 11/03/16 Patient Reports: Positive: other (she is on tube feeds via NG) Objective Vital Signs - 12hr 11/02/16 11/02/16 11/02/16 23:31 23:40 23:52 Temperature Pulse Rate 99 H 87 Respiratory 24 17 Rate Blood Pressure 108/81 108/81 O2 Sat by Pulse 93 100 100 Oximetry O2 Sat by Pulse 100 Oximetry [ Assessment] 11/03/16 11/03/16 11/03/16 00:00 00:31 01:00 Temperature Pulse Rate 85 87 87 Respiratory 18 15 26 H Rate Blood Pressure 111/75 111/75 120/75 O2 Sat by Pulse 100 100 100 Oximetry O2 Sat by Pulse Oximetry [ Assessment] 11/03/16 11/03/16 11/03/16 01:31 02:01 02:31 Temperature Pulse Rate 86 86 107 H Respiratory 22 18 19 Rate Blood Pressure 120/75 108/78 120/75 O2 Sat by Pulse 100 100 99 Oximetry O2 Sat by Pulse Oximetry [ Assessment] 11/03/16 11/03/16 11/03/16 03:00 03:31 03:55 Temperature Pulse Rate 98 H 109 H 108 H Respiratory 25 H 23 Rate Blood Pressure 133/83 133/83 133/83 O2 Sat by Pulse 100 99 99 Oximetry O2 Sat by Pulse Oximetry [ Assessment] 11/03/16 11/03/16 11/03/16 04:00 04:31 05:01 Temperature 98.7 F Pulse Rate 109 H 107 H 129 H Respiratory 18 22 24 Rate Blood Pressure 156/86 156/86 156/86 O2 Sat by Pulse 100 100 98 Oximetry O2 Sat by Pulse Oximetry [ Assessment] 11/03/16 11/03/16 11/03/16 05:31 06:00 06:06 Temperature Pulse Rate 128 H 123 H 120 H Respiratory 22 26 H Rate Blood Pressure 156/86 203/116 203/116 O2 Sat by Pulse Oximetry O2 Sat by Pulse Oximetry [ Assessment] 11/03/16 11/03/16 11/03/16 06:31 07:00 08:00 Temperature 98.4 F Pulse Rate 108 H 95 H Respiratory 25 H 22 Rate Blood Pressure 170/96 165/91 O2 Sat by Pulse 100 100 Oximetry O2 Sat by Pulse Oximetry [ Assessment] 11/03/16 11/03/16 09:00 09:10 Temperature Pulse Rate 93 H Respiratory Rate Blood Pressure 166/89 O2 Sat by Pulse 100 100 Oximetry O2 Sat by Pulse 100 Oximetry [ Assessment] - Abdomen soft, wound (Minimal drainage from wounds. No obvious cellulitis) - Labs 11/01/16 04:55 11/03/16 06:00 Diabetes panel 11/03/16 Range/Units 06:00 Sodium 139 (137-145) mmol/L Potassium 3.7 (3.6-5.0) mmol/L Chloride 96.7 L (98-107) mmol/L Carbon Dioxide 25 (22-30) mmol/L BUN 41 H (7-17) mg/dL Creatinine 1.5 H (0.7-1.2) mg/dL Glucose 145 H (65-100) mg/dL Calcium 8.4 (8.4-10.2) mg/dL Calcium panel 11/03/16 Range/Units 06:00 Calcium 8.4 (8.4-10.2) mg/dL Phosphorus 1.60 L D (2.5-4.5) mg/dL Pituitary panel 11/03/16 Range/Units 06:00 Sodium 139 (137-145) mmol/L Potassium 3.7 (3.6-5.0) mmol/L Chloride 96.7 L (98-107) mmol/L Carbon Dioxide 25 (22-30) mmol/L BUN 41 H (7-17) mg/dL Creatinine 1.5 H (0.7-1.2) mg/dL Glucose 145 H (65-100) mg/dL Calcium 8.4 (8.4-10.2) mg/dL Adrenal panel 11/03/16 Range/Units 06:00 Sodium 139 (137-145) mmol/L Potassium 3.7 (3.6-5.0) mmol/L Chloride 96.7 L (98-107) mmol/L Carbon Dioxide 25 (22-30) mmol/L BUN 41 H (7-17) mg/dL Creatinine 1.5 H (0.7-1.2) mg/dL Glucose 145 H (65-100) mg/dL Calcium 8.4 (8.4-10.2) mg/dL
[2016-11-03] MEDS: NORVASC PO SCH (11:44)
[2016-11-03] MEDS: PROTONIX FEEDTUBE SCH (11:44)
[2016-11-03] MEDS: HumuLIN R SUB-Q SCH ×2 (12:00→18:46)
[2016-11-03] MEDS: PANCREAZE DR 10,500 UNIT FEEDTUBE PRN (12:06)
[2016-11-03] MEDS: SODIUM BICARBONATE FEEDTUBE PRN (12:06)
--- NOTE | 2016-11-03 13:13 | XRay Report ---
SUPINE KUB: History: Dobbhoff tube placement. A Doppler tube has been inserted which is coiled in the body of the stomach. The abdominal gas pattern is unremarkable. No masses or organomegaly is identified and there is no gross evidence of free air or fluid. No significant soft tissue calcifications are noted. Cholecystectomy changes are noted. IMPRESSION: The feeding tube is coiled in the mid stomach.
--- NOTE | 2016-11-03 16:05 | Progress Note ---
Assessment and Plan Patient is 46-year-old woman with a history of hypertension, diabetes mellitus, asthma, hyperlipidemia, chronic kidney disease and anxiety, who was brought in by family because she couldn't get her words out, her face was also twisted, she was admitted for acute CVA and accelerated hypertension, she had a hx of poor adherence with her medications, and uncontrolled htn. Patient's SBP on admission was noted be greater than 260. TPA was started but this it was discontinued after 5 minutes because her blood pressure became uncontrolled. The TPA was not initiated again because the patient was outside the TPA window. - Patient Problems (1) Acute respiratory failure with hypoxia Current Visit: Yes Status: Acute Plan to address problem: Continue with mechanical ventilatory support and daily SBTs as tolerated Currently tolerating ATP trials Lung protective strategies -VAP bundle, HOB >40 - SCDs for VTE prophylaxis - Stress ulcer prophylaxis -Bronchodilators- h/o asthma - TPN, accucheck with glycemic control - ABGs and CXR PRN (2) Acute blood loss anemia Current Visit: Yes Status: Resolved Plan to address problem: Transfuse for Hgh 7g/dl Monitor counts (3) Acute CVA (cerebrovascular accident) Current Visit: Yes Status: Acute Plan to address problem: CTScan -subacute MCA territory infarct Secondary stroke prophylaxis Neuroprotective measures Aspiration precautions (4) Chronic renal insufficiency Current Visit: Yes Status: Acute Qualifiers: Chronic kidney disease stage: C Plan to address problem: UF/HD per renal service Renal following (5) Uncontrolled hypertension Current Visit: Yes Status: Acute Plan to address problem: Monitor closely and adjust anti-hypertensive medications (6) Leukocytosis (leucocytosis) Current Visit: Yes Status: Acute Qualifiers: Leukocytosis type: leukemoid reaction Qualified Code(s): D72.823 - Leukemoid reaction (7) Dislodged gastrostomy tube Current Visit: Yes Status: Acute Plan to address problem: With bowel perforation/peritonitis( resolved) Remains NPO except medications and on TPN for nutritional support. (8) Fungemia Current Visit: Yes Status: Resolved Subjective Date of service: 11/03/16 Principal diagnosis: Acute resp failure on MVS; S/P Acute CVA; Acute Encephalopathy; JUANITA Interval history: Seen and examined. Vitals, labs, medications, chart reviewed. No new overnight events. Discussed with RT and RN during interdisciplinary rounds. Tolerating SBT-currently on ATP Objective Vital Signs - 12hr 11/03/16 11/03/16 11/03/16 04:31 05:01 05:31 Temperature Pulse Rate 107 H 129 H 128 H Respiratory 22 24 22 Rate Blood Pressure 156/86 156/86 156/86 O2 Sat by Pulse 100 98 Oximetry O2 Sat by Pulse Oximetry [ Assessment] 11/03/16 11/03/16 11/03/16 06:00 06:06 06:31 Temperature Pulse Rate 123 H 120 H 108 H Respiratory 26 H 25 H Rate Blood Pressure 203/116 203/116 170/96 O2 Sat by Pulse 100 Oximetry O2 Sat by Pulse Oximetry [ Assessment] 11/03/16 11/03/16 11/03/16 07:00 07:30 08:00 Temperature 98.4 F Pulse Rate 95 H 98 H 102 H Respiratory 22 20 24 Rate Blood Pressure 165/91 175/93 O2 Sat by Pulse 100 100 100 Oximetry O2 Sat by Pulse Oximetry [ Assessment] 11/03/16 11/03/16 11/03/16 08:30 09:00 09:10 Temperature Pulse Rate 99 H 102 H 93 H Respiratory 21 26 H Rate Blood Pressure 175/93 166/89 166/89 O2 Sat by Pulse 100 97 100 Oximetry O2 Sat by Pulse 100 Oximetry [ Assessment] 11/03/16 11/03/16 11/03/16 09:30 10:00 10:30 Temperature Pulse Rate 106 H 107 H 107 H Respiratory 24 35 H 35 H Rate Blood Pressure 166/89 168/84 168/84 O2 Sat by Pulse 100 99 98 Oximetry O2 Sat by Pulse Oximetry [ Assessment] 11/03/16 11/03/16 11/03/16 11:00 11:30 11:43 Temperature Pulse Rate 98 H 97 H 104 H Respiratory 22 25 H Rate Blood Pressure 158/78 158/78 158/78 O2 Sat by Pulse 96 99 Oximetry O2 Sat by Pulse Oximetry [ Assessment] 11/03/16 11/03/16 11:44 12:00 Temperature 98.4 F Pulse Rate 100 H 104 H Respiratory 25 H Rate Blood Pressure 158/78 162/83 O2 Sat by Pulse 97 Oximetry O2 Sat by Pulse Oximetry [ Assessment] Constitutional: no acute distress, other (eyes open; not tracking movements) Eyes: non-icteric, other (tracheostomy tube in midline of neck) ENT: oropharynx moist Neck: supple, no lymphadenopathy Effort: normal, mildly labored Ascultation: Right: diminished breath sounds (base), Bilateral: clear, rales, rhonchi (scant) Cardiovascular: regular rate and rhythm Gastrointestinal: hypoactive bowel sounds, soft, non-tender, non-distended, other (RLQ wound dressed) Integumentary: normal, other Extremities: no cyanosis, no edema, pulses normal, no ischemia or petechiae Neurologic: pupils equal and round, unable to assess, other (sedated) Psychiatric: other (unable to assess) CBC and BMP: 12/28/16 04:00 12/29/16 05:15 ABG, PT/INR, D-dimer: ABG POC ABG pH 7.561 (7.35-7.45) H 10/16/16 20:48 POC ABG pCO2 24.4 (35-45) L 10/16/16 20:48 POC ABG pO2 77 (80-105) L 10/16/16 20:48 POC ABG HCO3 21.9 10/16/16 20:48 POC ABG Total CO2 23 10/16/16 20:48 POC ABG O2 Sat 97 10/16/16 20:48 PT/INR, D-dimer PT 19.0 Sec. (12.2-14.9) H 10/09/16 03:45 INR 1.51 (0.87-1.13) H 10/09/16 03:45 Abnormal lab findings: Abnormal Labs 09/03/16 09/03/16 09/03/16 12:12 15:07 16:20 WBC RBC Hgb Hct MCV MCH MCHC RDW Plt Count Lymph % (Auto) [place] % (Auto) Lymph # [place] # Baso # Seg Neutrophils % Seg Neuts % (Manual) Lymphocytes % (Manual) Monocytes % (Manual) Eosinophils % (Manual) Basophils % (Manual) Nucleated RBC % Seg Neutrophils # Seg Neutrophils # Man Lymphocytes # (Manual) Monocytes # (Manual) Eosinophils # (Manual) PT INR Fibrinogen dRVVT Confirm Interp Factor V Activity POC ABG pH 7.452 H POC ABG pCO2 POC ABG pO2 Sodium Potassium Chloride Carbon Dioxide BUN Creatinine Glucose POC Glucose 178 H Lactic Acid Calcium Phosphorus 2.20 L Magnesium 1.60 L Direct Bilirubin ALT Alkaline Phosphatase Troponin T C-Reactive Protein Total Protein Albumin Triglycerides Cholesterol LDL Cholesterol Direct HDL Cholesterol Urine WBC (Auto) Urine Creatinine Urine Total Protein Vancomycin Trough Rheumatoid Factor Complement C4 Miscellaneous Test Crossmatch 09/03/16 09/03/16 09/03/16 17:57 17:58 23:50 WBC RBC Hgb Hct MCV MCH MCHC RDW Plt Count Lymph % (Auto) [place] % (Auto) Lymph # [place] # Baso # Seg Neutrophils % Seg Neuts % (Manual) Lymphocytes % (Manual) Monocytes % (Manual) Eosinophils % (Manual) Basophils % (Manual) Nucleated RBC % Seg Neutrophils # Seg Neutrophils # Man Lymphocytes # (Manual) Monocytes # (Manual) Eosinophils # (Manual) PT INR Fibrinogen dRVVT Confirm Interp Factor V Activity POC ABG pH POC ABG pCO2 POC ABG pO2 Sodium Potassium Chloride Carbon Dioxide BUN Creatinine Glucose POC Glucose 162 H 145 H Lactic Acid Calcium Phosphorus 2.30 L Magnesium Direct Bilirubin ALT Alkaline Phosphatase Troponin T C-Reactive Protein Total Protein Albumin Triglycerides Cholesterol LDL Cholesterol Direct HDL Cholesterol Urine WBC (Auto) Urine Creatinine Urine Total Protein Vancomycin Trough Rheumatoid Factor Complement C4 Miscellaneous Test Crossmatch 09/04/16 09/04/16 09/04/16 03:31 03:31 05:42 WBC RBC Hgb 9.7 L D Hct MCV 72 L MCH 23 L MCHC RDW 17.5 H Plt Count Lymph % (Auto) 11.1 L [place] % (Auto) Lymph # [place] # Baso # Seg Neutrophils % 84.3 H Seg Neuts % (Manual) Lymphocytes % (Manual) Monocytes % (Manual) Eosinophils % (Manual) Basophils % (Manual) Nucleated RBC % Seg Neutrophils # 8.9 H Seg Neutrophils # Man Lymphocytes # (Manual) Monocytes # (Manual) Eosinophils # (Manual) PT INR Fibrinogen dRVVT Confirm Interp Factor V Activity POC ABG pH POC ABG pCO2 POC ABG pO2 Sodium 135 L Potassium 2.9 L* Chloride 97.2 L Carbon Dioxide 19 L BUN Creatinine 1.7 H Glucose 170 H POC Glucose 152 H Lactic Acid Calcium Phosphorus Magnesium Direct Bilirubin ALT Alkaline Phosphatase Troponin T C-Reactive Protein Total Protein Albumin Triglycerides 160 H Cholesterol LDL Cholesterol Direct HDL Cholesterol 31 L Urine WBC (Auto) Urine Creatinine Urine Total Protein Vancomycin Trough Rheumatoid Factor Complement C4 Miscellaneous Test Crossmatch 09/04/16 09/04/16 09/04/16 11:34 17:46 23:29 WBC RBC Hgb Hct MCV MCH MCHC RDW Plt Count Lymph % (Auto) [place] % (Auto) Lymph # [place] # Baso # Seg Neutrophils % Seg Neuts % (Manual) Lymphocytes % (Manual) Monocytes % (Manual) Eosinophils % (Manual) Basophils % (Manual) Nucleated RBC % Seg Neutrophils # Seg Neutrophils # Man Lymphocytes # (Manual) Monocytes # (Manual) Eosinophils # (Manual) PT INR Fibrinogen dRVVT Confirm Interp Factor V Activity POC ABG pH POC ABG pCO2 POC ABG pO2 Sodium Potassium Chloride Carbon Dioxide BUN Creatinine Glucose POC Glucose 165 H 210 H 139 H Lactic Acid Calcium Phosphorus Magnesium Direct Bilirubin ALT Alkaline Phosphatase Troponin T C-Reactive Protein Total Protein Albumin Triglycerides Cholesterol LDL Cholesterol Direct HDL Cholesterol Urine WBC (Auto) Urine Creatinine Urine Total Protein Vancomycin Trough Rheumatoid Factor Complement C4 Miscellaneous Test Crossmatch 09/05/16 09/05/16 09/05/16 04:05 04:05 05:38 WBC RBC Hgb Hct MCV 76 L D MCH 23 L MCHC RDW 17.8 H Plt Count Lymph % (Auto) [place] % (Auto) Lymph # [place] # Baso # Seg Neutrophils % Seg Neuts % (Manual) Lymphocytes % (Manual) Monocytes % (Manual) Eosinophils % (Manual) Basophils % (Manual) Nucleated RBC % Seg Neutrophils # Seg Neutrophils # Man Lymphocytes # (Manual) Monocytes # (Manual) Eosinophils # (Manual) PT INR Fibrinogen dRVVT Confirm Interp Factor V Activity POC ABG pH POC ABG pCO2 POC ABG pO2 Sodium 134 L Potassium Chloride Carbon Dioxide 18 L BUN Creatinine 1.8 H Glucose 192 H POC Glucose 175 H Lactic Acid Calcium Phosphorus Magnesium Direct Bilirubin ALT Alkaline Phosphatase Troponin T C-Reactive Protein Total Protein Albumin Triglycerides Cholesterol LDL Cholesterol Direct HDL Cholesterol Urine WBC (Auto) Urine Creatinine Urine Total Protein Vancomycin Trough Rheumatoid Factor Complement C4 Miscellaneous Test Crossmatch 09/05/16 09/05/16 09/05/16 11:38 17:48 23:22 WBC RBC Hgb Hct MCV MCH MCHC RDW Plt Count Lymph % (Auto) [place] % (Auto) Lymph # [place] # Baso # Seg Neutrophils % Seg Neuts % (Manual) Lymphocytes % (Manual) Monocytes % (Manual) Eosinophils % (Manual) Basophils % (Manual) Nucleated RBC % Seg Neutrophils # Seg Neutrophils # Man Lymphocytes # (Manual) Monocytes # (Manual) Eosinophils # (Manual) PT INR Fibrinogen dRVVT Confirm Interp Factor V Activity POC ABG pH POC ABG pCO2 POC ABG pO2 Sodium Potassium Chloride Carbon Dioxide BUN Creatinine Glucose POC Glucose 164 H 186 H 195 H Lactic Acid Calcium Phosphorus Magnesium Direct Bilirubin ALT Alkaline Phosphatase Troponin T C-Reactive Protein Total Protein Albumin Triglycerides Cholesterol LDL Cholesterol Direct HDL Cholesterol Urine WBC (Auto) Urine Creatinine Urine Total Protein Vancomycin Trough Rheumatoid Factor Complement C4 Miscellaneous Test Crossmatch 09/06/16 09/06/16 09/06/16 04:12 05:59 07:32 WBC RBC Hgb Hct MCV MCH MCHC RDW Plt Count Lymph % (Auto) [place] % (Auto) Lymph # [place] # Baso # Seg Neutrophils % Seg Neuts % (Manual) Lymphocytes % (Manual) Monocytes % (Manual) Eosinophils % (Manual) Basophils % (Manual) Nucleated RBC % Seg Neutrophils # Seg Neutrophils # Man Lymphocytes # (Manual) Monocytes # (Manual) Eosinophils # (Manual) PT INR Fibrinogen dRVVT Confirm Interp Factor V Activity POC ABG pH 7.514 H POC ABG pCO2 29.1 L POC ABG pO2 72 L Sodium 133 L Potassium 3.4 L Chloride 94.9 L Carbon Dioxide 19 L BUN 30 H Creatinine 2.1 H Glucose 139 H POC Glucose 146 H Lactic Acid Calcium Phosphorus Magnesium Direct Bilirubin ALT Alkaline Phosphatase Troponin T C-Reactive Protein Total Protein Albumin Triglycerides Cholesterol LDL Cholesterol Direct HDL Cholesterol Urine WBC (Auto) Urine Creatinine Urine Total Protein Vancomycin Trough Rheumatoid Factor Complement C4 Miscellaneous Test Crossmatch 09/06/16 09/06/16 09/06/16 11:57 17:58 19:02 WBC RBC Hgb Hct MCV MCH MCHC RDW Plt Count Lymph % (Auto) [place] % (Auto) Lymph # [place] # Baso # Seg Neutrophils % Seg Neuts % (Manual) Lymphocytes % (Manual) Monocytes % (Manual) Eosinophils % (Manual) Basophils % (Manual) Nucleated RBC % Seg Neutrophils # Seg Neutrophils # Man Lymphocytes # (Manual) Monocytes # (Manual) Eosinophils # (Manual) PT INR Fibrinogen dRVVT Confirm Interp Factor V Activity POC ABG pH 7.465 H POC ABG pCO2 32.0 L POC ABG pO2 Sodium Potassium Chloride Carbon Dioxide BUN Creatinine Glucose POC Glucose 165 H 160 H Lactic Acid Calcium Phosphorus Magnesium Direct Bilirubin ALT Alkaline Phosphatase Troponin T C-Reactive Protein Total Protein Albumin Triglycerides Cholesterol LDL Cholesterol Direct HDL Cholesterol Urine WBC (Auto) Urine Creatinine Urine Total Protein Vancomycin Trough Rheumatoid Factor Complement C4 Miscellaneous Test Crossmatch 09/06/16 09/07/16 09/07/16 23:45 02:47 02:47 WBC RBC Hgb Hct MCV MCH MCHC RDW Plt Count Lymph % (Auto) [place] % (Auto) Lymph # [place] # Baso # Seg Neutrophils % Seg Neuts % (Manual) Lymphocytes % (Manual) Monocytes % (Manual) Eosinophils % (Manual) Basophils % (Manual) Nucleated RBC % Seg Neutrophils # Seg Neutrophils # Man Lymphocytes # (Manual) Monocytes # (Manual) Eosinophils # (Manual) PT INR Fibrinogen dRVVT Confirm Interp Factor V Activity POC ABG pH POC ABG pCO2 POC ABG pO2 Sodium Potassium Chloride Carbon Dioxide BUN Creatinine Glucose POC Glucose 204 H Lactic Acid Calcium Phosphorus Magnesium Direct Bilirubin ALT Alkaline Phosphatase Troponin T C-Reactive Protein Total Protein Albumin Triglycerides Cholesterol LDL Cholesterol Direct HDL Cholesterol Urine WBC (Auto) 68.0 H Urine Creatinine 106.1 H Urine Total Protein Vancomycin Trough Rheumatoid Factor Complement C4 Miscellaneous Test Crossmatch 09/07/16 09/07/16 09/07/16 04:50 06:19 06:39 WBC RBC Hgb Hct MCV MCH MCHC RDW Plt Count Lymph % (Auto) [place] % (Auto) Lymph # [place] # Baso # Seg Neutrophils % Seg Neuts % (Manual) Lymphocytes % (Manual) Monocytes % (Manual) Eosinophils % (Manual) Basophils % (Manual) Nucleated RBC % Seg Neutrophils # Seg Neutrophils # Man Lymphocytes # (Manual) Monocytes # (Manual) Eosinophils # (Manual) PT INR Fibrinogen dRVVT Confirm Interp Factor V Activity POC ABG pH 7.457 H POC ABG pCO2 32.1 L POC ABG pO2 76 L Sodium 132 L Potassium Chloride 94.7 L Carbon Dioxide BUN 53 H Creatinine 2.9 H Glucose 151 H POC Glucose 149 H Lactic Acid Calcium Phosphorus Magnesium Direct Bilirubin ALT Alkaline Phosphatase Troponin T C-Reactive Protein Total Protein Albumin Triglycerides Cholesterol LDL Cholesterol Direct HDL Cholesterol Urine WBC (Auto) Urine Creatinine Urine Total Protein Vancomycin Trough Rheumatoid Factor Complement C4 Miscellaneous Test Crossmatch 09/07/16 09/07/16 09/07/16 09:20 11:43 11:43 WBC 19.4 H RBC Hgb 8.3 L Hct 26.4 L D MCV 72 L D MCH 22 L MCHC RDW 17.9 H Plt Count Lymph % (Auto) 8.5 L [place] % (Auto) Lymph # [place] # 1.0 H Baso # Seg Neutrophils % 85.8 H Seg Neuts % (Manual) Lymphocytes % (Manual) Monocytes % (Manual) Eosinophils % (Manual) Basophils % (Manual) Nucleated RBC % Seg Neutrophils # 16.6 H Seg Neutrophils # Man Lymphocytes # (Manual) Monocytes # (Manual) Eosinophils # (Manual) PT INR Fibrinogen dRVVT Confirm Interp Factor V Activity POC ABG pH POC ABG pCO2 POC ABG pO2 Sodium 134 L Potassium Chloride 97.2 L Carbon Dioxide 20 L BUN 58 H Creatinine 2.9 H Glucose 147 H POC Glucose Lactic Acid Calcium Phosphorus 2.40 L Magnesium 2.40 H Direct Bilirubin ALT Alkaline Phosphatase Troponin T C-Reactive Protein Total Protein 5.8 L Albumin 2.2 L Triglycerides Cholesterol LDL Cholesterol Direct HDL Cholesterol Urine WBC (Auto) Urine Creatinine Urine Total Protein Vancomycin Trough Rheumatoid Factor Complement C4 58 H Miscellaneous Test Crossmatch 09/07/16 09/07/16 09/07/16 11:50 16:00 17:31 WBC RBC Hgb Hct MCV MCH MCHC RDW Plt Count Lymph % (Auto) [place] % (Auto) Lymph # [place] # Baso # Seg Neutrophils % Seg Neuts % (Manual) Lymphocytes % (Manual) Monocytes % (Manual) Eosinophils % (Manual) Basophils % (Manual) Nucleated RBC % Seg Neutrophils # Seg Neutrophils # Man Lymphocytes # (Manual) Monocytes # (Manual) Eosinophils # (Manual) PT INR Fibrinogen dRVVT Confirm Interp Factor V Activity POC ABG pH POC ABG pCO2 POC ABG pO2 158 H Sodium Potassium Chloride Carbon Dioxide BUN Creatinine Glucose POC Glucose 175 H Lactic Acid Calcium Phosphorus Magnesium Direct Bilirubin ALT Alkaline Phosphatase Troponin T C-Reactive Protein Total Protein Albumin Triglycerides Cholesterol LDL Cholesterol Direct HDL Cholesterol Urine WBC (Auto) Urine Creatinine 66.3 H Urine Total Protein Vancomycin Trough Rheumatoid Factor Complement C4 Miscellaneous Test Crossmatch 09/07/16 09/08/16 09/08/16 23:50 05:46 06:18 WBC 17.8 H RBC 3.58 L Hgb 8.1 L Hct 25.5 L MCV 71 L MCH 23 L MCHC RDW 18.4 H Plt Count Lymph % (Auto) [place] % (Auto) Lymph # [place] # Baso # Seg Neutrophils % Seg Neuts % (Manual) 92.0 H Lymphocytes % (Manual) 6.0 L Monocytes % (Manual) Eosinophils % (Manual) Basophils % (Manual) Nucleated RBC % Seg Neutrophils # Seg Neutrophils # Man 16.4 H Lymphocytes # (Manual) 1.1 L Monocytes # (Manual) Eosinophils # (Manual) PT INR Fibrinogen dRVVT Confirm Interp Factor V Activity POC ABG pH POC ABG pCO2 34.3 L POC ABG pO2 71 L Sodium Potassium Chloride Carbon Dioxide BUN Creatinine Glucose POC Glucose 216 H Lactic Acid Calcium Phosphorus Magnesium Direct Bilirubin ALT Alkaline Phosphatase Troponin T C-Reactive Protein Total Protein Albumin Triglycerides Cholesterol LDL Cholesterol Direct HDL Cholesterol Urine WBC (Auto) Urine Creatinine Urine Total Protein Vancomycin Trough Rheumatoid Factor Complement C4 Miscellaneous Test Crossmatch 09/08/16 09/08/16 09/08/16 06:18 06:51 10:55 WBC RBC Hgb Hct MCV MCH MCHC RDW Plt Count Lymph % (Auto) [place] % (Auto) Lymph # [place] # Baso # Seg Neutrophils % Seg Neuts % (Manual) Lymphocytes % (Manual) Monocytes % (Manual) Eosinophils % (Manual) Basophils % (Manual) Nucleated RBC % Seg Neutrophils # Seg Neutrophils # Man Lymphocytes # (Manual) Monocytes # (Manual) Eosinophils # (Manual) PT INR Fibrinogen dRVVT Confirm Interp Factor V Activity POC ABG pH POC ABG pCO2 POC ABG pO2 Sodium 133 L Potassium Chloride 96.9 L Carbon Dioxide 20 L BUN 63 H Creatinine 2.7 H Glucose 195 H POC Glucose 204 H 169 H Lactic Acid Calcium Phosphorus Magnesium Direct Bilirubin ALT Alkaline Phosphatase Troponin T C-Reactive Protein Total Protein Albumin Triglycerides Cholesterol LDL Cholesterol Direct HDL Cholesterol Urine WBC (Auto) Urine Creatinine Urine Total Protein Vancomycin Trough Rheumatoid Factor Complement C4 Miscellaneous Test Crossmatch 09/08/16 09/08/16 09/08/16 11:48 11:48 11:48 WBC RBC Hgb Hct MCV MCH MCHC RDW Plt Count Lymph % (Auto) [place] % (Auto) Lymph # [place] # Baso # Seg Neutrophils % Seg Neuts % (Manual) Lymphocytes % (Manual) Monocytes % (Manual) Eosinophils % (Manual) Basophils % (Manual) Nucleated RBC % Seg Neutrophils # Seg Neutrophils # Man Lymphocytes # (Manual) Monocytes # (Manual) Eosinophils # (Manual) PT INR Fibrinogen 750 H dRVVT Confirm Interp Factor V Activity POC ABG pH POC ABG pCO2 POC ABG pO2 Sodium Potassium Chloride Carbon Dioxide BUN Creatinine Glucose POC Glucose Lactic Acid Calcium Phosphorus Magnesium Direct Bilirubin ALT Alkaline Phosphatase Troponin T C-Reactive Protein 15.70 H Total Protein Albumin Triglycerides Cholesterol LDL Cholesterol Direct HDL Cholesterol Urine WBC (Auto) Urine Creatinine Urine Total Protein Vancomycin Trough Rheumatoid Factor 24 H Complement C4 Miscellaneous Test Crossmatch 09/08/16 09/08/16 09/09/16 15:35 18:25 00:24 WBC RBC Hgb Hct MCV MCH MCHC RDW Plt Count Lymph % (Auto) [place] % (Auto) Lymph # [place] # Baso # Seg Neutrophils % Seg Neuts % (Manual) Lymphocytes % (Manual) Monocytes % (Manual) Eosinophils % (Manual) Basophils % (Manual) Nucleated RBC % Seg Neutrophils # Seg Neutrophils # Man Lymphocytes # (Manual) Monocytes # (Manual) Eosinophils # (Manual) PT INR Fibrinogen dRVVT Confirm Interp Factor V Activity 182 H POC ABG pH POC ABG pCO2 POC ABG pO2 Sodium Potassium Chloride Carbon Dioxide BUN Creatinine Glucose POC Glucose 184 H 216 H Lactic Acid Calcium Phosphorus Magnesium Direct Bilirubin ALT Alkaline Phosphatase Troponin T C-Reactive Protein Total Protein Albumin Triglycerides Cholesterol LDL Cholesterol Direct HDL Cholesterol Urine WBC (Auto) Urine Creatinine Urine Total Protein Vancomycin Trough Rheumatoid Factor Complement C4 Miscellaneous Test Crossmatch 09/09/16 09/09/16 09/09/16 03:00 03:00 04:04 WBC 27.9 H RBC Hgb 8.7 L Hct 28.1 L MCV 72 L MCH 22 L MCHC RDW 18.4 H Plt Count 485 H Lymph % (Auto) [place] % (Auto) Lymph # [place] # Baso # Seg Neutrophils % Seg Neuts % (Manual) 77.0 H Lymphocytes % (Manual) 9.0 L Monocytes % (Manual) Eosinophils % (Manual) Basophils % (Manual) Nucleated RBC % Seg Neutrophils # Seg Neutrophils # Man 21.5 H Lymphocytes # (Manual) Monocytes # (Manual) 2.0 H Eosinophils # (Manual) PT INR Fibrinogen dRVVT Confirm Interp Factor V Activity POC ABG pH POC ABG pCO2 POC ABG pO2 121 H Sodium 135 L Potassium Chloride 96.3 L Carbon Dioxide 21 L BUN 83 H Creatinine 3.0 H Glucose 135 H POC Glucose Lactic Acid Calcium Phosphorus Magnesium Direct Bilirubin ALT Alkaline Phosphatase Troponin T C-Reactive Protein Total Protein Albumin Triglycerides Cholesterol LDL Cholesterol Direct HDL Cholesterol Urine WBC (Auto) Urine Creatinine Urine Total Protein Vancomycin Trough Rheumatoid Factor Complement C4 Miscellaneous Test Crossmatch 09/09/16 09/09/16 09/09/16 05:41 11:55 14:13 WBC RBC Hgb Hct MCV MCH MCHC RDW Plt Count Lymph % (Auto) [place] % (Auto) Lymph # [place] # Baso # Seg Neutrophils % Seg Neuts % (Manual) Lymphocytes % (Manual) Monocytes % (Manual) Eosinophils % (Manual) Basophils % (Manual) Nucleated RBC % Seg Neutrophils # Seg Neutrophils # Man Lymphocytes # (Manual) Monocytes # (Manual) Eosinophils # (Manual) PT INR Fibrinogen dRVVT Confirm Interp Factor V Activity POC ABG pH POC ABG pCO2 POC ABG pO2 Sodium Potassium Chloride Carbon Dioxide BUN Creatinine Glucose POC Glucose 155 H 186 H Lactic Acid Calcium Phosphorus Magnesium Direct Bilirubin ALT Alkaline Phosphatase Troponin T C-Reactive Protein Total Protein Albumin Triglycerides Cholesterol LDL Cholesterol Direct HDL Cholesterol Urine WBC (Auto) 25.0 H Urine Creatinine Urine Total Protein Vancomycin Trough Rheumatoid Factor Complement C4 Miscellaneous Test Crossmatch 09/09/16 09/09/16 09/10/16 17:33 23:13 05:09 WBC RBC Hgb Hct MCV MCH MCHC RDW Plt Count Lymph % (Auto) [place] % (Auto) Lymph # [place] # Baso # Seg Neutrophils % Seg Neuts % (Manual) Lymphocytes % (Manual) Monocytes % (Manual) Eosinophils % (Manual) Basophils % (Manual) Nucleated RBC % Seg Neutrophils # Seg Neutrophils # Man Lymphocytes # (Manual) Monocytes # (Manual) Eosinophils # (Manual) PT INR Fibrinogen dRVVT Confirm Interp Factor V Activity POC ABG pH POC ABG pCO2 POC ABG pO2 74 L Sodium Potassium Chloride Carbon Dioxide BUN Creatinine Glucose POC Glucose 211 H 215 H Lactic Acid Calcium Phosphorus Magnesium Direct Bilirubin ALT Alkaline Phosphatase Troponin T C-Reactive Protein Total Protein Albumin Triglycerides Cholesterol LDL Cholesterol Direct HDL Cholesterol Urine WBC (Auto) Urine Creatinine Urine Total Protein Vancomycin Trough Rheumatoid Factor Complement C4 Miscellaneous Test Crossmatch 09/10/16 09/10/16 09/10/16 05:17 05:17 11:31 WBC 15.8 H RBC 3.25 L Hgb 7.3 L Hct 22.9 L MCV 71 L MCH 23 L MCHC RDW 18.4 H Plt Count Lymph % (Auto) [place] % (Auto) Lymph # [place] # Baso # Seg Neutrophils % Seg Neuts % (Manual) 91.0 H Lymphocytes % (Manual) 4.0 L Monocytes % (Manual) Eosinophils % (Manual) Basophils % (Manual) Nucleated RBC % Seg Neutrophils # Seg Neutrophils # Man 14.4 H Lymphocytes # (Manual) 0.6 L Monocytes # (Manual) Eosinophils # (Manual) PT INR Fibrinogen dRVVT Confirm Interp Factor V Activity POC ABG pH POC ABG pCO2 POC ABG pO2 Sodium Potassium Chloride Carbon Dioxide 21 L BUN 93 H Creatinine 2.9 H Glucose 146 H POC Glucose 188 H Lactic Acid Calcium 8.1 L Phosphorus Magnesium Direct Bilirubin ALT Alkaline Phosphatase Troponin T C-Reactive Protein Total Protein Albumin Triglycerides Cholesterol LDL Cholesterol Direct HDL Cholesterol Urine WBC (Auto) Urine Creatinine Urine Total Protein Vancomycin Trough Rheumatoid Factor Complement C4 Miscellaneous Test Crossmatch 09/10/16 09/10/16 09/10/16 13:17 17:20 23:32 WBC RBC Hgb Hct MCV MCH MCHC RDW Plt Count Lymph % (Auto) [place] % (Auto) Lymph # [place] # Baso # Seg Neutrophils % Seg Neuts % (Manual) Lymphocytes % (Manual) Monocytes % (Manual) Eosinophils % (Manual) Basophils % (Manual) Nucleated RBC % Seg Neutrophils # Seg Neutrophils # Man Lymphocytes # (Manual) Monocytes # (Manual) Eosinophils # (Manual) PT INR Fibrinogen dRVVT Confirm Interp Factor V Activity POC ABG pH POC ABG pCO2 POC ABG pO2 Sodium Potassium Chloride Carbon Dioxide BUN Creatinine Glucose POC Glucose 199 H 186 H Lactic Acid Calcium Phosphorus Magnesium Direct Bilirubin ALT Alkaline Phosphatase Troponin T C-Reactive Protein Total Protein Albumin Triglycerides Cholesterol LDL Cholesterol Direct HDL Cholesterol Urine WBC (Auto) Urine Creatinine Urine Total Protein Vancomycin Trough Rheumatoid Factor Complement C4 Miscellaneous Test Crossmatch See Detail 09/11/16 09/11/16 09/11/16 05:10 05:10 05:17 WBC 28.4 H RBC Hgb 9.2 L Hct 29.3 L D MCV 73 L MCH 23 L MCHC RDW 18.9 H Plt Count 452 H Lymph % (Auto) [place] % (Auto) Lymph # [place] # Baso # Seg Neutrophils % Seg Neuts % (Manual) 89.5 H Lymphocytes % (Manual) 2.0 L Monocytes % (Manual) Eosinophils % (Manual) Basophils % (Manual) Nucleated RBC % Seg Neutrophils # Seg Neutrophils # Man 25.4 H Lymphocytes # (Manual) 0.6 L Monocytes # (Manual) 1.3 H Eosinophils # (Manual) PT INR Fibrinogen dRVVT Confirm Interp Factor V Activity POC ABG pH POC ABG pCO2 POC ABG pO2 Sodium 136 L Potassium Chloride Carbon Dioxide 18 L BUN 107 H Creatinine 2.6 H Glucose 187 H POC Glucose 230 H Lactic Acid Calcium 8.3 L Phosphorus Magnesium Direct Bilirubin ALT Alkaline Phosphatase Troponin T C-Reactive Protein Total Protein Albumin Triglycerides Cholesterol LDL Cholesterol Direct HDL Cholesterol Urine WBC (Auto) Urine Creatinine Urine Total Protein Vancomycin Trough Rheumatoid Factor Complement C4 Miscellaneous Test Crossmatch 09/11/16 09/11/16 09/11/16 05:55 12:02 17:32 WBC RBC Hgb Hct MCV MCH MCHC RDW Plt Count Lymph % (Auto) [place] % (Auto) Lymph # [place] # Baso # Seg Neutrophils % Seg Neuts % (Manual) Lymphocytes % (Manual) Monocytes % (Manual) Eosinophils % (Manual) Basophils % (Manual) Nucleated RBC % Seg Neutrophils # Seg Neutrophils # Man Lymphocytes # (Manual) Monocytes # (Manual) Eosinophils # (Manual) PT INR Fibrinogen dRVVT Confirm Interp Factor V Activity POC ABG pH POC ABG pCO2 33.8 L POC ABG pO2 Sodium Potassium Chloride Carbon Dioxide BUN Creatinine Glucose POC Glucose 191 H 239 H Lactic Acid Calcium Phosphorus Magnesium Direct Bilirubin ALT Alkaline Phosphatase Troponin T C-Reactive Protein Total Protein Albumin Triglycerides Cholesterol LDL Cholesterol Direct HDL Cholesterol Urine WBC (Auto) Urine Creatinine Urine Total Protein Vancomycin Trough Rheumatoid Factor Complement C4 Miscellaneous Test Crossmatch 09/11/16 09/12/16 09/12/16 23:52 05:09 05:32 WBC RBC Hgb Hct MCV MCH MCHC RDW Plt Count Lymph % (Auto) [place] % (Auto) Lymph # [place] # Baso # Seg Neutrophils % Seg Neuts % (Manual) Lymphocytes % (Manual) Monocytes % (Manual) Eosinophils % (Manual) Basophils % (Manual) Nucleated RBC % Seg Neutrophils # Seg Neutrophils # Man Lymphocytes # (Manual) Monocytes # (Manual) Eosinophils # (Manual) PT INR Fibrinogen dRVVT Confirm Interp Factor V Activity POC ABG pH POC ABG pCO2 34.6 L POC ABG pO2 Sodium Potassium Chloride Carbon Dioxide BUN Creatinine Glucose POC Glucose 265 H 184 H Lactic Acid Calcium Phosphorus Magnesium Direct Bilirubin ALT Alkaline Phosphatase Troponin T C-Reactive Protein Total Protein Albumin Triglycerides Cholesterol LDL Cholesterol Direct HDL Cholesterol Urine WBC (Auto) Urine Creatinine Urine Total Protein Vancomycin Trough Rheumatoid Factor Complement C4 Miscellaneous Test Crossmatch 09/12/16 09/12/16 09/12/16 06:45 06:45 07:22 WBC 31.7 H RBC 3.54 L Hgb 8.3 L Hct 25.9 L MCV 73 L MCH 23 L MCHC RDW 18.9 H Plt Count Lymph % (Auto) [place] % (Auto) Lymph # [place] # Baso # Seg Neutrophils % Seg Neuts % (Manual) 88.5 H Lymphocytes % (Manual) 4.5 L Monocytes % (Manual) Eosinophils % (Manual) Basophils % (Manual) Nucleated RBC % Seg Neutrophils # Seg Neutrophils # Man 28.1 H Lymphocytes # (Manual) Monocytes # (Manual) 1.0 H Eosinophils # (Manual) PT INR Fibrinogen dRVVT Confirm Interp Factor V Activity POC ABG pH POC ABG pCO2 POC ABG pO2 Sodium Potassium Chloride Carbon Dioxide 20 L BUN 115 H Creatinine 2.7 H Glucose 165 H POC Glucose Lactic Acid Calcium 8.0 L Phosphorus Magnesium Direct Bilirubin ALT Alkaline Phosphatase Troponin T C-Reactive Protein Total Protein Albumin Triglycerides 217 H Cholesterol LDL Cholesterol Direct HDL Cholesterol Urine WBC (Auto) Urine Creatinine Urine Total Protein Vancomycin Trough Rheumatoid Factor Complement C4 Miscellaneous Test Crossmatch 09/12/16 09/12/16 09/12/16 07:22 09:59 12:21 WBC RBC Hgb Hct MCV MCH MCHC RDW Plt Count Lymph % (Auto) [place] % (Auto) Lymph # [place] # Baso # Seg Neutrophils % Seg Neuts % (Manual) Lymphocytes % (Manual) Monocytes % (Manual) Eosinophils % (Manual) Basophils % (Manual) Nucleated RBC % Seg Neutrophils # Seg Neutrophils # Man Lymphocytes # (Manual) Monocytes # (Manual) Eosinophils # (Manual) PT INR Fibrinogen dRVVT Confirm Interp Positive H Factor V Activity POC ABG pH POC ABG pCO2 POC ABG pO2 Sodium Potassium Chloride Carbon Dioxide BUN Creatinine Glucose POC Glucose 224 H Lactic Acid Calcium Phosphorus Magnesium Direct Bilirubin ALT Alkaline Phosphatase Troponin T C-Reactive Protein 1.70 H Total Protein Albumin Triglycerides Cholesterol LDL Cholesterol Direct HDL Cholesterol Urine WBC (Auto) Urine Creatinine Urine Total Protein Vancomycin Trough Rheumatoid Factor Complement C4 Miscellaneous Test Crossmatch 09/12/16 09/12/16 09/13/16 16:51 23:28 04:00 WBC 45.0 H* RBC Hgb 9.4 L Hct MCV 75 L MCH 23 L MCHC RDW 19.0 H Plt Count 470 H Lymph % (Auto) [place] % (Auto) Lymph # [place] # Baso # Seg Neutrophils % Seg Neuts % (Manual) 89.0 H Lymphocytes % (Manual) 5.0 L Monocytes % (Manual) Eosinophils % (Manual) Basophils % (Manual) Nucleated RBC % Seg Neutrophils # Seg Neutrophils # Man 40.1 H Lymphocytes # (Manual) Monocytes # (Manual) Eosinophils # (Manual) PT INR Fibrinogen dRVVT Confirm Interp Factor V Activity POC ABG pH POC ABG pCO2 POC ABG pO2 Sodium Potassium Chloride Carbon Dioxide BUN Creatinine Glucose POC Glucose 169 H 150 H Lactic Acid Calcium Phosphorus Magnesium Direct Bilirubin ALT Alkaline Phosphatase Troponin T C-Reactive Protein Total Protein Albumin Triglycerides Cholesterol LDL Cholesterol Direct HDL Cholesterol Urine WBC (Auto) Urine Creatinine Urine Total Protein Vancomycin Trough Rheumatoid Factor Complement C4 Miscellaneous Test Crossmatch 09/13/16 09/13/16 09/13/16 04:00 11:26 17:31 WBC RBC Hgb Hct MCV MCH MCHC RDW Plt Count Lymph % (Auto) [place] % (Auto) Lymph # [place] # Baso # Seg Neutrophils % Seg Neuts % (Manual) Lymphocytes % (Manual) Monocytes % (Manual) Eosinophils % (Manual) Basophils % (Manual) Nucleated RBC % Seg Neutrophils # Seg Neutrophils # Man Lymphocytes # (Manual) Monocytes # (Manual) Eosinophils # (Manual) PT INR Fibrinogen dRVVT Confirm Interp Factor V Activity POC ABG pH POC ABG pCO2 POC ABG pO2 Sodium Potassium Chloride Carbon Dioxide 20 L BUN 116 H Creatinine 3.0 H Glucose 172 H POC Glucose 140 H 183 H Lactic Acid Calcium Phosphorus Magnesium Direct Bilirubin ALT Alkaline Phosphatase Troponin T C-Reactive Protein Total Protein 6.2 L Albumin 2.9 L Triglycerides Cholesterol LDL Cholesterol Direct HDL Cholesterol Urine WBC (Auto) Urine Creatinine Urine Total Protein Vancomycin Trough Rheumatoid Factor Complement C4 Miscellaneous Test Crossmatch 09/13/16 09/14/16 09/14/16 23:23 04:06 04:07 WBC 29.4 H RBC Hgb 8.9 L Hct 27.3 L MCV 75 L MCH 24 L MCHC RDW 19.1 H Plt Count Lymph % (Auto) [place] % (Auto) Lymph # [place] # Baso # Seg Neutrophils % Seg Neuts % (Manual) 84.0 H Lymphocytes % (Manual) 6.0 L Monocytes % (Manual) 9.0 H Eosinophils % (Manual) Basophils % (Manual) Nucleated RBC % Seg Neutrophils # Seg Neutrophils # Man 24.7 H Lymphocytes # (Manual) Monocytes # (Manual) 2.6 H Eosinophils # (Manual) PT INR Fibrinogen dRVVT Confirm Interp Factor V Activity POC ABG pH 7.342 L POC ABG pCO2 POC ABG pO2 116 H Sodium Potassium Chloride Carbon Dioxide BUN Creatinine Glucose POC Glucose 154 H Lactic Acid Calcium Phosphorus Magnesium Direct Bilirubin ALT Alkaline Phosphatase Troponin T C-Reactive Protein Total Protein Albumin Triglycerides Cholesterol LDL Cholesterol Direct HDL Cholesterol Urine WBC (Auto) Urine Creatinine Urine Total Protein Vancomycin Trough Rheumatoid Factor Complement C4 Miscellaneous Test Crossmatch 09/14/16 09/14/16 09/14/16 04:07 05:29 12:19 WBC RBC Hgb Hct MCV MCH MCHC RDW Plt Count Lymph % (Auto) [place] % (Auto) Lymph # [place] # Baso # Seg Neutrophils % Seg Neuts % (Manual) Lymphocytes % (Manual) Monocytes % (Manual) Eosinophils % (Manual) Basophils % (Manual) Nucleated RBC % Seg Neutrophils # Seg Neutrophils # Man Lymphocytes # (Manual) Monocytes # (Manual) Eosinophils # (Manual) PT INR Fibrinogen dRVVT Confirm Interp Factor V Activity POC ABG pH POC ABG pCO2 POC ABG pO2 Sodium 136 L Potassium Chloride Carbon Dioxide 18 L BUN 121 H Creatinine 2.8 H Glucose 214 H POC Glucose 239 H 181 H Lactic Acid Calcium Phosphorus Magnesium Direct Bilirubin ALT Alkaline Phosphatase Troponin T C-Reactive Protein Total Protein Albumin Triglycerides Cholesterol LDL Cholesterol Direct HDL Cholesterol Urine WBC (Auto) Urine Creatinine Urine Total Protein Vancomycin Trough Rheumatoid Factor Complement C4 Miscellaneous Test Crossmatch 09/14/16 09/14/16 09/15/16 18:12 23:37 05:00 WBC 26.1 H RBC 3.05 L Hgb 7.2 L Hct 22.9 L MCV 75 L MCH 24 L MCHC RDW 19.0 H Plt Count Lymph % (Auto) [place] % (Auto) Lymph # [place] # Baso # Seg Neutrophils % Seg Neuts % (Manual) Lymphocytes % (Manual) Monocytes % (Manual) Eosinophils % (Manual) Basophils % (Manual) Nucleated RBC % Seg Neutrophils # Seg Neutrophils # Man Lymphocytes # (Manual) Monocytes # (Manual) Eosinophils # (Manual) PT INR Fibrinogen dRVVT Confirm Interp Factor V Activity POC ABG pH POC ABG pCO2 POC ABG pO2 Sodium Potassium Chloride Carbon Dioxide BUN Creatinine Glucose POC Glucose 266 H 154 H Lactic Acid Calcium Phosphorus Magnesium Direct Bilirubin ALT Alkaline Phosphatase Troponin T C-Reactive Protein Total Protein Albumin Triglycerides Cholesterol LDL Cholesterol Direct HDL Cholesterol Urine WBC (Auto) Urine Creatinine Urine Total Protein Vancomycin Trough Rheumatoid Factor Complement C4 Miscellaneous Test Crossmatch 09/15/16 09/15/16 09/15/16 05:00 05:17 12:45 WBC RBC Hgb Hct MCV MCH MCHC RDW Plt Count Lymph % (Auto) [place] % (Auto) Lymph # [place] # Baso # Seg Neutrophils % Seg Neuts % (Manual) Lymphocytes % (Manual) Monocytes % (Manual) Eosinophils % (Manual) Basophils % (Manual) Nucleated RBC % Seg Neutrophils # Seg Neutrophils # Man Lymphocytes # (Manual) Monocytes # (Manual) Eosinophils # (Manual) PT INR Fibrinogen dRVVT Confirm Interp Factor V Activity POC ABG pH POC ABG pCO2 POC ABG pO2 Sodium Potassium 5.2 H Chloride Carbon Dioxide 18 L BUN 139 H Creatinine 3.7 H Glucose 227 H POC Glucose 226 H 244 H Lactic Acid Calcium 8.3 L Phosphorus Magnesium Direct Bilirubin ALT Alkaline Phosphatase Troponin T C-Reactive Protein Total Protein Albumin Triglycerides Cholesterol LDL Cholesterol Direct HDL Cholesterol Urine WBC (Auto) Urine Creatinine Urine Total Protein Vancomycin Trough Rheumatoid Factor Complement C4 Miscellaneous Test Crossmatch 09/15/16 09/15/16 09/15/16 14:32 17:33 23:35 WBC RBC Hgb Hct MCV MCH MCHC RDW Plt Count Lymph % (Auto) [place] % (Auto) Lymph # [place] # Baso # Seg Neutrophils % Seg Neuts % (Manual) Lymphocytes % (Manual) Monocytes % (Manual) Eosinophils % (Manual) Basophils % (Manual) Nucleated RBC % Seg Neutrophils # Seg Neutrophils # Man Lymphocytes # (Manual) Monocytes # (Manual) Eosinophils # (Manual) PT INR Fibrinogen dRVVT Confirm Interp Factor V Activity POC ABG pH POC ABG pCO2 27.7 L POC ABG pO2 120 H Sodium Potassium Chloride Carbon Dioxide BUN Creatinine Glucose POC Glucose 232 H 167 H Lactic Acid Calcium Phosphorus Magnesium Direct Bilirubin ALT Alkaline Phosphatase Troponin T C-Reactive Protein Total Protein Albumin Triglycerides Cholesterol LDL Cholesterol Direct HDL Cholesterol Urine WBC (Auto) Urine Creatinine Urine Total Protein Vancomycin Trough Rheumatoid Factor Complement C4 Miscellaneous Test Crossmatch 09/16/16 09/16/16 09/16/16 03:58 10:27 10:27 WBC 19.0 H RBC 2.77 L Hgb 6.5 L Hct 20.9 L MCV 76 L MCH 23 L MCHC RDW 19.3 H Plt Count Lymph % (Auto) 11.0 L [place] % (Auto) Lymph # [place] # 1.1 H Baso # Seg Neutrophils % 82.5 H Seg Neuts % (Manual) Lymphocytes % (Manual) Monocytes % (Manual) Eosinophils % (Manual) Basophils % (Manual) Nucleated RBC % Seg Neutrophils # 15.7 H Seg Neutrophils # Man Lymphocytes # (Manual) Monocytes # (Manual) Eosinophils # (Manual) PT INR Fibrinogen dRVVT Confirm Interp Factor V Activity POC ABG pH POC ABG pCO2 POC ABG pO2 Sodium Potassium Chloride 109.3 H Carbon Dioxide 18 L BUN 139 H Creatinine 4.1 H Glucose 144 H POC Glucose 146 H Lactic Acid Calcium 8.1 L Phosphorus Magnesium Direct Bilirubin ALT Alkaline Phosphatase Troponin T C-Reactive Protein Total Protein Albumin Triglycerides Cholesterol LDL Cholesterol Direct HDL Cholesterol Urine WBC (Auto) Urine Creatinine Urine Total Protein Vancomycin Trough Rheumatoid Factor Complement C4 Miscellaneous Test Crossmatch 09/16/16 09/16/16 09/16/16 12:04 12:10 13:55 WBC RBC Hgb Hct MCV MCH MCHC RDW Plt Count Lymph % (Auto) [place] % (Auto) Lymph # [place] # Baso # Seg Neutrophils % Seg Neuts % (Manual) Lymphocytes % (Manual) Monocytes % (Manual) Eosinophils % (Manual) Basophils % (Manual) Nucleated RBC % Seg Neutrophils # Seg Neutrophils # Man Lymphocytes # (Manual) Monocytes # (Manual) Eosinophils # (Manual) PT INR Fibrinogen dRVVT Confirm Interp Factor V Activity POC ABG pH POC ABG pCO2 32.9 L POC ABG pO2 Sodium Potassium Chloride Carbon Dioxide BUN Creatinine Glucose POC Glucose 185 H Lactic Acid Calcium Phosphorus Magnesium Direct Bilirubin ALT Alkaline Phosphatase Troponin T C-Reactive Protein Total Protein Albumin Triglycerides Cholesterol LDL Cholesterol Direct HDL Cholesterol Urine WBC (Auto) Urine Creatinine Urine Total Protein Vancomycin Trough Rheumatoid Factor Complement C4 Miscellaneous Test Crossmatch See Detail 09/16/16 09/16/16 09/16/16 17:55 19:19 23:48 WBC RBC Hgb Hct MCV MCH MCHC RDW Plt Count Lymph % (Auto) [place] % (Auto) Lymph # [place] # Baso # Seg Neutrophils % Seg Neuts % (Manual) Lymphocytes % (Manual) Monocytes % (Manual) Eosinophils % (Manual) Basophils % (Manual) Nucleated RBC % Seg Neutrophils # Seg Neutrophils # Man Lymphocytes # (Manual) Monocytes # (Manual) Eosinophils # (Manual) PT INR Fibrinogen dRVVT Confirm Interp Factor V Activity POC ABG pH POC ABG pCO2 POC ABG pO2 Sodium Potassium Chloride Carbon Dioxide BUN Creatinine Glucose POC Glucose 222 H 107 H Lactic Acid Calcium Phosphorus Magnesium Direct Bilirubin ALT Alkaline Phosphatase Troponin T C-Reactive Protein Total Protein Albumin Triglycerides Cholesterol LDL Cholesterol Direct HDL Cholesterol Urine WBC (Auto) Urine Creatinine 47.4 H Urine Total Protein 16 H Vancomycin Trough Rheumatoid Factor Complement C4 Miscellaneous Test Crossmatch 09/17/16 09/17/16 09/17/16 03:45 03:45 04:55 WBC 19.6 H RBC 3.41 L Hgb 8.5 L Hct 26.7 L MCV 78 L MCH 25 L MCHC RDW 19.9 H Plt Count Lymph % (Auto) 9.3 L [place] % (Auto) Lymph # [place] # 1.2 H Baso # Seg Neutrophils % 83.9 H Seg Neuts % (Manual) Lymphocytes % (Manual) Monocytes % (Manual) Eosinophils % (Manual) Basophils % (Manual) Nucleated RBC % Seg Neutrophils # 16.4 H Seg Neutrophils # Man Lymphocytes # (Manual) Monocytes # (Manual) Eosinophils # (Manual) PT INR Fibrinogen dRVVT Confirm Interp Factor V Activity POC ABG pH POC ABG pCO2 POC ABG pO2 Sodium 146 H Potassium 5.1 H Chloride 110.9 H Carbon Dioxide 16 L BUN 146 H Creatinine 4.0 H Glucose 108 H POC Glucose 133 H Lactic Acid Calcium Phosphorus Magnesium 3.00 H Direct Bilirubin ALT Alkaline Phosphatase Troponin T C-Reactive Protein Total Protein Albumin Triglycerides Cholesterol LDL Cholesterol Direct HDL Cholesterol Urine WBC (Auto) Urine Creatinine Urine Total Protein Vancomycin Trough Rheumatoid Factor Complement C4 Miscellaneous Test Crossmatch 09/17/16 09/17/16 09/17/16 11:15 17:33 23:47 WBC RBC Hgb Hct MCV MCH MCHC RDW Plt Count Lymph % (Auto) [place] % (Auto) Lymph # [place] # Baso # Seg Neutrophils % Seg Neuts % (Manual) Lymphocytes % (Manual) Monocytes % (Manual) Eosinophils % (Manual) Basophils % (Manual) Nucleated RBC % Seg Neutrophils # Seg Neutrophils # Man Lymphocytes # (Manual) Monocytes # (Manual) Eosinophils # (Manual) PT INR Fibrinogen dRVVT Confirm Interp Factor V Activity POC ABG pH POC ABG pCO2 POC ABG pO2 Sodium Potassium Chloride Carbon Dioxide BUN Creatinine Glucose POC Glucose 176 H 246 H 148 H Lactic Acid Calcium Phosphorus Magnesium Direct Bilirubin ALT Alkaline Phosphatase Troponin T C-Reactive Protein Total Protein Albumin Triglycerides Cholesterol LDL Cholesterol Direct HDL Cholesterol Urine WBC (Auto) Urine Creatinine Urine Total Protein Vancomycin Trough Rheumatoid Factor Complement C4 Miscellaneous Test Crossmatch 09/18/16 09/18/16 09/18/16 05:33 08:31 08:31 WBC 18.0 H RBC 3.17 L Hgb 9.0 L Hct 25.7 L MCV MCH MCHC 35 H RDW 20.4 H Plt Count Lymph % (Auto) [place] % (Auto) Lymph # [place] # Baso # Seg Neutrophils % Seg Neuts % (Manual) Lymphocytes % (Manual) Monocytes % (Manual) Eosinophils % (Manual) Basophils % (Manual) Nucleated RBC % Seg Neutrophils # Seg Neutrophils # Man Lymphocytes # (Manual) Monocytes # (Manual) Eosinophils # (Manual) PT INR Fibrinogen dRVVT Confirm Interp Factor V Activity POC ABG pH POC ABG pCO2 POC ABG pO2 Sodium Potassium Chloride Carbon Dioxide 15 L BUN 124 H Creatinine 3.8 H Glucose POC Glucose 120 H Lactic Acid Calcium 8.1 L Phosphorus Magnesium Direct Bilirubin ALT Alkaline Phosphatase Troponin T C-Reactive Protein Total Protein Albumin Triglycerides Cholesterol LDL Cholesterol Direct HDL Cholesterol Urine WBC (Auto) Urine Creatinine Urine Total Protein Vancomycin Trough Rheumatoid Factor Complement C4 Miscellaneous Test Crossmatch 09/18/16 09/18/16 09/18/16 12:03 15:34 17:50 WBC RBC Hgb Hct MCV MCH MCHC RDW Plt Count Lymph % (Auto) [place] % (Auto) Lymph # [place] # Baso # Seg Neutrophils % Seg Neuts % (Manual) Lymphocytes % (Manual) Monocytes % (Manual) Eosinophils % (Manual) Basophils % (Manual) Nucleated RBC % Seg Neutrophils # Seg Neutrophils # Man Lymphocytes # (Manual) Monocytes # (Manual) Eosinophils # (Manual) PT INR Fibrinogen dRVVT Confirm Interp Factor V Activity POC ABG pH POC ABG pCO2 25.7 L POC ABG pO2 66 L Sodium Potassium Chloride Carbon Dioxide BUN Creatinine Glucose POC Glucose 156 H 220 H Lactic Acid Calcium Phosphorus Magnesium Direct Bilirubin ALT Alkaline Phosphatase Troponin T C-Reactive Protein Total Protein Albumin Triglycerides Cholesterol LDL Cholesterol Direct HDL Cholesterol Urine WBC (Auto) Urine Creatinine Urine Total Protein Vancomycin Trough Rheumatoid Factor Complement C4 Miscellaneous Test Crossmatch 09/19/16 09/19/16 09/19/16 06:21 09:50 09:50 WBC 17.1 H RBC 3.49 L Hgb 9.0 L Hct 28.1 L MCV MCH 26 L MCHC RDW 20.8 H Plt Count Lymph % (Auto) 11.5 L [place] % (Auto) 7.5 H Lymph # [place] # 1.3 H Baso # Seg Neutrophils % 79.8 H Seg Neuts % (Manual) Lymphocytes % (Manual) Monocytes % (Manual) Eosinophils % (Manual) Basophils % (Manual) Nucleated RBC % Seg Neutrophils # 13.7 H Seg Neutrophils # Man Lymphocytes # (Manual) Monocytes # (Manual) Eosinophils # (Manual) PT INR Fibrinogen dRVVT Confirm Interp Factor V Activity POC ABG pH POC ABG pCO2 POC ABG pO2 Sodium Potassium Chloride 108.6 H Carbon Dioxide 15 L BUN 125 H Creatinine 4.1 H Glucose 124 H POC Glucose 119 H Lactic Acid Calcium Phosphorus Magnesium Direct Bilirubin ALT Alkaline Phosphatase Troponin T C-Reactive Protein Total Protein Albumin Triglycerides Cholesterol LDL Cholesterol Direct HDL Cholesterol Urine WBC (Auto) Urine Creatinine Urine Total Protein Vancomycin Trough Rheumatoid Factor Complement C4 Miscellaneous Test Crossmatch 09/19/16 09/19/16 09/19/16 11:25 17:53 23:36 WBC RBC Hgb Hct MCV MCH MCHC RDW Plt Count Lymph % (Auto) [place] % (Auto) Lymph # [place] # Baso # Seg Neutrophils % Seg Neuts % (Manual) Lymphocytes % (Manual) Monocytes % (Manual) Eosinophils % (Manual) Basophils % (Manual) Nucleated RBC % Seg Neutrophils # Seg Neutrophils # Man Lymphocytes # (Manual) Monocytes # (Manual) Eosinophils # (Manual) PT INR Fibrinogen dRVVT Confirm Interp Factor V Activity POC ABG pH POC ABG pCO2 POC ABG pO2 Sodium Potassium Chloride Carbon Dioxide BUN Creatinine Glucose POC Glucose 160 H 245 H 121 H Lactic Acid Calcium Phosphorus Magnesium Direct Bilirubin ALT Alkaline Phosphatase Troponin T C-Reactive Protein Total Protein Albumin Triglycerides Cholesterol LDL Cholesterol Direct HDL Cholesterol Urine WBC (Auto) Urine Creatinine Urine Total Protein Vancomycin Trough Rheumatoid Factor Complement C4 Miscellaneous Test Crossmatch 09/20/16 09/20/16 09/20/16 04:10 04:10 04:10 WBC 17.0 H RBC 3.21 L Hgb 8.2 L Hct 25.5 L MCV MCH 26 L MCHC RDW 20.9 H Plt Count Lymph % (Auto) [place] % (Auto) Lymph # [place] # Baso # Seg Neutrophils % Seg Neuts % (Manual) Lymphocytes % (Manual) Monocytes % (Manual) Eosinophils % (Manual) Basophils % (Manual) Nucleated RBC % Seg Neutrophils # Seg Neutrophils # Man Lymphocytes # (Manual) Monocytes # (Manual) Eosinophils # (Manual) PT INR Fibrinogen dRVVT Confirm Interp Factor V Activity POC ABG pH POC ABG pCO2 POC ABG pO2 Sodium Potassium Chloride 111.0 H Carbon Dioxide 16 L BUN 129 H Creatinine 3.7 H Glucose 115 H POC Glucose Lactic Acid Calcium 8.2 L Phosphorus Magnesium Direct Bilirubin ALT Alkaline Phosphatase Troponin T C-Reactive Protein Total Protein Albumin Triglycerides 243 H Cholesterol LDL Cholesterol Direct HDL Cholesterol Urine WBC (Auto) Urine Creatinine Urine Total Protein Vancomycin Trough Rheumatoid Factor Complement C4 Miscellaneous Test Crossmatch 09/20/16 09/20/16 09/20/16 05:40 11:52 16:50 WBC RBC Hgb Hct MCV MCH MCHC RDW Plt Count Lymph % (Auto) [place] % (Auto) Lymph # [place] # Baso # Seg Neutrophils % Seg Neuts % (Manual) Lymphocytes % (Manual) Monocytes % (Manual) Eosinophils % (Manual) Basophils % (Manual) Nucleated RBC % Seg Neutrophils # Seg Neutrophils # Man Lymphocytes # (Manual) Monocytes # (Manual) Eosinophils # (Manual) PT INR Fibrinogen dRVVT Confirm Interp Factor V Activity POC ABG pH POC ABG pCO2 POC ABG pO2 Sodium Potassium Chloride Carbon Dioxide BUN Creatinine Glucose POC Glucose 131 H 183 H 236 H Lactic Acid Calcium Phosphorus Magnesium Direct Bilirubin ALT Alkaline Phosphatase Troponin T C-Reactive Protein Total Protein Albumin Triglycerides Cholesterol LDL Cholesterol Direct HDL Cholesterol Urine WBC (Auto) Urine Creatinine Urine Total Protein Vancomycin Trough Rheumatoid Factor Complement C4 Miscellaneous Test Crossmatch 09/20/16 09/21/16 09/21/16 23:51 03:30 04:44 WBC RBC Hgb Hct MCV MCH MCHC RDW Plt Count Lymph % (Auto) [place] % (Auto) Lymph # [place] # Baso # Seg Neutrophils % Seg Neuts % (Manual) Lymphocytes % (Manual) Monocytes % (Manual) Eosinophils % (Manual) Basophils % (Manual) Nucleated RBC % Seg Neutrophils # Seg Neutrophils # Man Lymphocytes # (Manual) Monocytes # (Manual) Eosinophils # (Manual) PT INR Fibrinogen dRVVT Confirm Interp Factor V Activity POC ABG pH POC ABG pCO2 POC ABG pO2 Sodium Potassium Chloride Carbon Dioxide BUN Creatinine Glucose POC Glucose 114 H 141 H Lactic Acid Calcium Phosphorus Magnesium 2.70 H Direct Bilirubin ALT Alkaline Phosphatase Troponin T C-Reactive Protein Total Protein Albumin Triglycerides Cholesterol LDL Cholesterol Direct HDL Cholesterol Urine WBC (Auto) Urine Creatinine Urine Total Protein Vancomycin Trough Rheumatoid Factor Complement C4 Miscellaneous Test Crossmatch 09/21/16 09/21/16 09/21/16 07:45 07:45 10:01 WBC 13.8 H RBC 2.94 L Hgb 7.5 L Hct 23.5 L MCV MCH 26 L MCHC RDW 21.2 H Plt Count Lymph % (Auto) 6.9 L [place] % (Auto) 9.4 H Lymph # 0.9 L [place] # 1.3 H Baso # Seg Neutrophils % 83.2 H Seg Neuts % (Manual) Lymphocytes % (Manual) Monocytes % (Manual) Eosinophils % (Manual) Basophils % (Manual) Nucleated RBC % Seg Neutrophils # 11.5 H Seg Neutrophils # Man Lymphocytes # (Manual) Monocytes # (Manual) Eosinophils # (Manual) PT INR Fibrinogen dRVVT Confirm Interp Factor V Activity POC ABG pH 7.308 L POC ABG pCO2 31.9 L POC ABG pO2 148 H Sodium 147 H Potassium Chloride 114.2 H Carbon Dioxide 15 L BUN 120 H Creatinine 3.9 H Glucose 156 H POC Glucose Lactic Acid Calcium 8.2 L Phosphorus Magnesium Direct Bilirubin ALT Alkaline Phosphatase Troponin T C-Reactive Protein Total Protein Albumin Triglycerides Cholesterol LDL Cholesterol Direct HDL Cholesterol Urine WBC (Auto) Urine Creatinine Urine Total Protein Vancomycin Trough Rheumatoid Factor Complement C4 Miscellaneous Test Crossmatch 09/21/16 09/21/16 09/21/16 12:00 12:03 13:00 WBC RBC Hgb Hct MCV MCH MCHC RDW Plt Count Lymph % (Auto) [place] % (Auto) Lymph # [place] # Baso # Seg Neutrophils % Seg Neuts % (Manual) Lymphocytes % (Manual) Monocytes % (Manual) Eosinophils % (Manual) Basophils % (Manual) Nucleated RBC % Seg Neutrophils # Seg Neutrophils # Man Lymphocytes # (Manual) Monocytes # (Manual) Eosinophils # (Manual) PT INR Fibrinogen dRVVT Confirm Interp Factor V Activity POC ABG pH POC ABG pCO2 POC ABG pO2 Sodium Potassium Chloride Carbon Dioxide BUN Creatinine Glucose POC Glucose 163 H Lactic Acid Calcium Phosphorus Magnesium Direct Bilirubin ALT Alkaline Phosphatase Troponin T C-Reactive Protein Total Protein Albumin Triglycerides Cholesterol LDL Cholesterol Direct HDL Cholesterol Urine WBC (Auto) Urine Creatinine 54.8 H Urine Total Protein Vancomycin Trough 2.3 L Rheumatoid Factor Complement C4 Miscellaneous Test Crossmatch 09/21/16 09/21/16 09/22/16 16:51 23:17 06:27 WBC RBC Hgb Hct MCV MCH MCHC RDW Plt Count Lymph % (Auto) [place] % (Auto) Lymph # [place] # Baso # Seg Neutrophils % Seg Neuts % (Manual) Lymphocytes % (Manual) Monocytes % (Manual) Eosinophils % (Manual) Basophils % (Manual) Nucleated RBC % Seg Neutrophils # Seg Neutrophils # Man Lymphocytes # (Manual) Monocytes # (Manual) Eosinophils # (Manual) PT INR Fibrinogen dRVVT Confirm Interp Factor V Activity POC ABG pH POC ABG pCO2 POC ABG pO2 Sodium Potassium Chloride Carbon Dioxide BUN Creatinine Glucose POC Glucose 206 H 114 H 115 H Lactic Acid Calcium Phosphorus Magnesium Direct Bilirubin ALT Alkaline Phosphatase Troponin T C-Reactive Protein Total Protein Albumin Triglycerides Cholesterol LDL Cholesterol Direct HDL Cholesterol Urine WBC (Auto) Urine Creatinine Urine Total Protein Vancomycin Trough Rheumatoid Factor Complement C4 Miscellaneous Test Crossmatch 09/22/16 09/22/16 09/22/16 07:50 07:50 12:00 WBC 17.8 H RBC 3.04 L Hgb 8.0 L Hct 24.7 L MCV MCH 26 L MCHC RDW 21.6 H Plt Count Lymph % (Auto) [place] % (Auto) Lymph # [place] # Baso # Seg Neutrophils % Seg Neuts % (Manual) Lymphocytes % (Manual) Monocytes % (Manual) Eosinophils % (Manual) Basophils % (Manual) Nucleated RBC % Seg Neutrophils # Seg Neutrophils # Man Lymphocytes # (Manual) Monocytes # (Manual) Eosinophils # (Manual) PT INR Fibrinogen dRVVT Confirm Interp Factor V Activity POC ABG pH POC ABG pCO2 POC ABG pO2 Sodium 150 H Potassium Chloride 118.2 H Carbon Dioxide 14 L BUN 111 H Creatinine 3.7 H Glucose 157 H POC Glucose 183 H Lactic Acid Calcium Phosphorus Magnesium Direct Bilirubin ALT Alkaline Phosphatase Troponin T C-Reactive Protein Total Protein Albumin Triglycerides Cholesterol LDL Cholesterol Direct HDL Cholesterol Urine WBC (Auto) Urine Creatinine Urine Total Protein Vancomycin Trough Rheumatoid Factor Complement C4 Miscellaneous Test Crossmatch 09/22/16 09/22/16 09/23/16 17:29 23:10 05:00 WBC 19.2 H RBC 3.13 L Hgb 8.0 L Hct 25.2 L MCV MCH 26 L MCHC RDW 22.1 H Plt Count Lymph % (Auto) [place] % (Auto) Lymph # [place] # Baso # Seg Neutrophils % Seg Neuts % (Manual) 92.0 H Lymphocytes % (Manual) 3.0 L Monocytes % (Manual) Eosinophils % (Manual) Basophils % (Manual) Nucleated RBC % Seg Neutrophils # Seg Neutrophils # Man 17.7 H Lymphocytes # (Manual) 0.6 L Monocytes # (Manual) Eosinophils # (Manual) PT INR Fibrinogen dRVVT Confirm Interp Factor V Activity POC ABG pH POC ABG pCO2 POC ABG pO2 Sodium Potassium Chloride Carbon Dioxide BUN Creatinine Glucose POC Glucose 197 H 169 H Lactic Acid Calcium Phosphorus Magnesium Direct Bilirubin ALT Alkaline Phosphatase Troponin T C-Reactive Protein Total Protein Albumin Triglycerides Cholesterol LDL Cholesterol Direct HDL Cholesterol Urine WBC (Auto) Urine Creatinine Urine Total Protein Vancomycin Trough Rheumatoid Factor Complement C4 Miscellaneous Test Crossmatch 09/23/16 09/23/16 09/23/16 05:00 05:00 05:10 WBC RBC Hgb Hct MCV MCH MCHC RDW Plt Count Lymph % (Auto) [place] % (Auto) Lymph # [place] # Baso # Seg Neutrophils % Seg Neuts % (Manual) Lymphocytes % (Manual) Monocytes % (Manual) Eosinophils % (Manual) Basophils % (Manual) Nucleated RBC % Seg Neutrophils # Seg Neutrophils # Man Lymphocytes # (Manual) Monocytes # (Manual) Eosinophils # (Manual) PT INR Fibrinogen dRVVT Confirm Interp Factor V Activity POC ABG pH POC ABG pCO2 POC ABG pO2 Sodium 147 H Potassium 3.2 L Chloride 115.7 H Carbon Dioxide 13 L BUN 111 H Creatinine 3.8 H Glucose 194 H POC Glucose 188 H Lactic Acid Calcium 7.3 L D Phosphorus Magnesium Direct Bilirubin ALT Alkaline Phosphatase Troponin T C-Reactive Protein 3.20 H Total Protein Albumin Triglycerides Cholesterol LDL Cholesterol Direct HDL Cholesterol Urine WBC (Auto) Urine Creatinine Urine Total Protein Vancomycin Trough Rheumatoid Factor Complement C4 Miscellaneous Test Crossmatch 09/23/16 09/23/16 09/23/16 11:37 12:29 18:01 WBC RBC Hgb Hct MCV MCH MCHC RDW Plt Count Lymph % (Auto) [place] % (Auto) Lymph # [place] # Baso # Seg Neutrophils % Seg Neuts % (Manual) Lymphocytes % (Manual) Monocytes % (Manual) Eosinophils % (Manual) Basophils % (Manual) Nucleated RBC % Seg Neutrophils # Seg Neutrophils # Man Lymphocytes # (Manual) Monocytes # (Manual) Eosinophils # (Manual) PT INR Fibrinogen dRVVT Confirm Interp Factor V Activity POC ABG pH POC ABG pCO2 18.9 L POC ABG pO2 143 H Sodium Potassium Chloride Carbon Dioxide BUN Creatinine Glucose POC Glucose 153 H 108 H Lactic Acid Calcium Phosphorus Magnesium Direct Bilirubin ALT Alkaline Phosphatase Troponin T C-Reactive Protein Total Protein Albumin Triglycerides Cholesterol LDL Cholesterol Direct HDL Cholesterol Urine WBC (Auto) Urine Creatinine Urine Total Protein Vancomycin Trough Rheumatoid Factor Complement C4 Miscellaneous Test Crossmatch 09/23/16 09/23/16 09/24/16 21:19 23:43 05:16 WBC RBC Hgb Hct MCV MCH MCHC RDW Plt Count Lymph % (Auto) [place] % (Auto) Lymph # [place] # Baso # Seg Neutrophils % Seg Neuts % (Manual) Lymphocytes % (Manual) Monocytes % (Manual) Eosinophils % (Manual) Basophils % (Manual) Nucleated RBC % Seg Neutrophils # Seg Neutrophils # Man Lymphocytes # (Manual) Monocytes # (Manual) Eosinophils # (Manual) PT INR Fibrinogen dRVVT Confirm Interp Factor V Activity POC ABG pH POC ABG pCO2 17.3 L POC ABG pO2 112 H Sodium Potassium Chloride Carbon Dioxide BUN Creatinine Glucose POC Glucose 143 H 164 H Lactic Acid Calcium Phosphorus Magnesium Direct Bilirubin ALT Alkaline Phosphatase Troponin T C-Reactive Protein Total Protein Albumin Triglycerides Cholesterol LDL Cholesterol Direct HDL Cholesterol Urine WBC (Auto) Urine Creatinine Urine Total Protein Vancomycin Trough Rheumatoid Factor Complement C4 Miscellaneous Test Crossmatch 09/24/16 09/24/16 09/24/16 05:21 11:58 17:06 WBC RBC Hgb Hct MCV MCH MCHC RDW Plt Count Lymph % (Auto) [place] % (Auto) Lymph # [place] # Baso # Seg Neutrophils % Seg Neuts % (Manual) Lymphocytes % (Manual) Monocytes % (Manual) Eosinophils % (Manual) Basophils % (Manual) Nucleated RBC % Seg Neutrophils # Seg Neutrophils # Man Lymphocytes # (Manual) Monocytes # (Manual) Eosinophils # (Manual) PT INR Fibrinogen dRVVT Confirm Interp Factor V Activity POC ABG pH POC ABG pCO2 POC ABG pO2 Sodium Potassium Chloride Carbon Dioxide 10 L BUN 103 H Creatinine 4.3 H Glucose 163 H POC Glucose 173 H 167 H Lactic Acid Calcium 6.5 L Phosphorus Magnesium Direct Bilirubin ALT Alkaline Phosphatase Troponin T C-Reactive Protein Total Protein Albumin Triglycerides Cholesterol LDL Cholesterol Direct HDL Cholesterol Urine WBC (Auto) Urine Creatinine Urine Total Protein Vancomycin Trough Rheumatoid Factor Complement C4 Miscellaneous Test Crossmatch 09/24/16 09/24/16 09/24/16 20:15 21:02 23:48 WBC RBC Hgb Hct MCV MCH MCHC RDW Plt Count Lymph % (Auto) [place] % (Auto) Lymph # [place] # Baso # Seg Neutrophils % Seg Neuts % (Manual) Lymphocytes % (Manual) Monocytes % (Manual) Eosinophils % (Manual) Basophils % (Manual) Nucleated RBC % Seg Neutrophils # Seg Neutrophils # Man Lymphocytes # (Manual) Monocytes # (Manual) Eosinophils # (Manual) PT INR Fibrinogen dRVVT Confirm Interp Factor V Activity POC ABG pH 7.288 L POC ABG pCO2 30.2 L 21.5 L POC ABG pO2 32 L 39 L Sodium Potassium Chloride Carbon Dioxide BUN Creatinine Glucose POC Glucose 109 H Lactic Acid Calcium Phosphorus Magnesium Direct Bilirubin ALT Alkaline Phosphatase Troponin T C-Reactive Protein Total Protein Albumin Triglycerides Cholesterol LDL Cholesterol Direct HDL Cholesterol Urine WBC (Auto) Urine Creatinine Urine Total Protein Vancomycin Trough Rheumatoid Factor Complement C4 Miscellaneous Test Crossmatch 09/25/16 09/25/16 09/25/16 04:20 04:20 04:20 WBC RBC 2.58 L Hgb 7.0 L Hct 21.0 L MCV MCH 27 L MCHC RDW 23.8 H Plt Count Lymph % (Auto) [place] % (Auto) Lymph # [place] # Baso # Seg Neutrophils % Seg Neuts % (Manual) Lymphocytes % (Manual) 12.0 L Monocytes % (Manual) Eosinophils % (Manual) 7.0 H Basophils % (Manual) 2.0 H Nucleated RBC % Seg Neutrophils # Seg Neutrophils # Man Lymphocytes # (Manual) 0.9 L Monocytes # (Manual) Eosinophils # (Manual) 0.5 H PT INR Fibrinogen dRVVT Confirm Interp Factor V Activity POC ABG pH POC ABG pCO2 POC ABG pO2 Sodium Potassium Chloride Carbon Dioxide 15 L BUN 72 H Creatinine 3.8 H Glucose POC Glucose Lactic Acid Calcium 6.0 L Phosphorus 4.60 H Magnesium 1.60 L Direct Bilirubin ALT Alkaline Phosphatase Troponin T C-Reactive Protein Total Protein Albumin Triglycerides Cholesterol LDL Cholesterol Direct HDL Cholesterol Urine WBC (Auto) Urine Creatinine Urine Total Protein Vancomycin Trough Rheumatoid Factor Complement C4 Miscellaneous Test Crossmatch 09/25/16 09/25/16 09/25/16 04:57 08:02 10:30 WBC RBC Hgb Hct MCV MCH MCHC RDW Plt Count Lymph % (Auto) [place] % (Auto) Lymph # [place] # Baso # Seg Neutrophils % Seg Neuts % (Manual) Lymphocytes % (Manual) Monocytes % (Manual) Eosinophils % (Manual) Basophils % (Manual) Nucleated RBC % Seg Neutrophils # Seg Neutrophils # Man Lymphocytes # (Manual) Monocytes # (Manual) Eosinophils # (Manual) PT INR Fibrinogen dRVVT Confirm Interp Factor V Activity POC ABG pH POC ABG pCO2 24.7 L POC ABG pO2 152 H Sodium Potassium Chloride Carbon Dioxide BUN Creatinine Glucose POC Glucose 113 H Lactic Acid Calcium Phosphorus Magnesium Direct Bilirubin ALT Alkaline Phosphatase Troponin T C-Reactive Protein Total Protein Albumin Triglycerides Cholesterol LDL Cholesterol Direct HDL Cholesterol Urine WBC (Auto) Urine Creatinine Urine Total Protein Vancomycin Trough Rheumatoid Factor Complement C4 Miscellaneous Test Crossmatch See Detail 09/25/16 09/25/16 09/25/16 12:05 17:44 23:47 WBC RBC Hgb Hct MCV MCH MCHC RDW Plt Count Lymph % (Auto) [place] % (Auto) Lymph # [place] # Baso # Seg Neutrophils % Seg Neuts % (Manual) Lymphocytes % (Manual) Monocytes % (Manual) Eosinophils % (Manual) Basophils % (Manual) Nucleated RBC % Seg Neutrophils # Seg Neutrophils # Man Lymphocytes # (Manual) Monocytes # (Manual) Eosinophils # (Manual) PT INR Fibrinogen dRVVT Confirm Interp Factor V Activity POC ABG pH POC ABG pCO2 POC ABG pO2 Sodium Potassium Chloride Carbon Dioxide BUN Creatinine Glucose POC Glucose 117 H 119 H 150 H Lactic Acid Calcium Phosphorus Magnesium Direct Bilirubin ALT Alkaline Phosphatase Troponin T C-Reactive Protein Total Protein Albumin Triglycerides Cholesterol LDL Cholesterol Direct HDL Cholesterol Urine WBC (Auto) Urine Creatinine Urine Total Protein Vancomycin Trough Rheumatoid Factor Complement C4 Miscellaneous Test Crossmatch 09/26/16 09/26/16 09/26/16 04:25 04:25 04:25 WBC RBC 2.65 L Hgb 7.4 L Hct 21.6 L MCV MCH MCHC RDW 22.5 H Plt Count Lymph % (Auto) [place] % (Auto) Lymph # [place] # Baso # Seg Neutrophils % Seg Neuts % (Manual) Lymphocytes % (Manual) 6.0 L Monocytes % (Manual) Eosinophils % (Manual) 11.0 H Basophils % (Manual) Nucleated RBC % Seg Neutrophils # Seg Neutrophils # Man Lymphocytes # (Manual) 0.4 L Monocytes # (Manual) Eosinophils # (Manual) 0.6 H PT INR Fibrinogen dRVVT Confirm Interp Factor V Activity POC ABG pH POC ABG pCO2 POC ABG pO2 Sodium Potassium Chloride 97.0 L Carbon Dioxide 19 L BUN 43 H Creatinine 2.6 H Glucose 130 H POC Glucose Lactic Acid 4.40 H* Calcium 6.7 L Phosphorus Magnesium Direct Bilirubin ALT Alkaline Phosphatase Troponin T C-Reactive Protein Total Protein Albumin Triglycerides Cholesterol LDL Cholesterol Direct HDL Cholesterol Urine WBC (Auto) Urine Creatinine Urine Total Protein Vancomycin Trough Rheumatoid Factor Complement C4 Miscellaneous Test Crossmatch 09/26/16 09/26/16 09/26/16 05:20 11:44 12:12 WBC RBC Hgb Hct MCV MCH MCHC RDW Plt Count Lymph % (Auto) [place] % (Auto) Lymph # [place] # Baso # Seg Neutrophils % Seg Neuts % (Manual) Lymphocytes % (Manual) Monocytes % (Manual) Eosinophils % (Manual) Basophils % (Manual) Nucleated RBC % Seg Neutrophils # Seg Neutrophils # Man Lymphocytes # (Manual) Monocytes # (Manual) Eosinophils # (Manual) PT INR Fibrinogen dRVVT Confirm Interp Factor V Activity POC ABG pH POC ABG pCO2 27.0 L POC ABG pO2 69 L Sodium Potassium Chloride Carbon Dioxide BUN Creatinine Glucose POC Glucose 121 H 128 H Lactic Acid Calcium Phosphorus Magnesium Direct Bilirubin ALT Alkaline Phosphatase Troponin T C-Reactive Protein Total Protein Albumin Triglycerides Cholesterol LDL Cholesterol Direct HDL Cholesterol Urine WBC (Auto) Urine Creatinine Urine Total Protein Vancomycin Trough Rheumatoid Factor Complement C4 Miscellaneous Test Crossmatch 09/26/16 09/26/16 09/27/16 18:31 23:40 08:20 WBC RBC Hgb Hct MCV MCH MCHC RDW Plt Count Lymph % (Auto) [place] % (Auto) Lymph # [place] # Baso # Seg Neutrophils % Seg Neuts % (Manual) Lymphocytes % (Manual) Monocytes % (Manual) Eosinophils % (Manual) Basophils % (Manual) Nucleated RBC % Seg Neutrophils # Seg Neutrophils # Man Lymphocytes # (Manual) Monocytes # (Manual) Eosinophils # (Manual) PT INR Fibrinogen dRVVT Confirm Interp Factor V Activity POC ABG pH POC ABG pCO2 POC ABG pO2 Sodium Potassium Chloride Carbon Dioxide BUN Creatinine Glucose POC Glucose 120 H 133 H Lactic Acid 4.10 H* Calcium Phosphorus Magnesium Direct Bilirubin ALT Alkaline Phosphatase Troponin T C-Reactive Protein Total Protein Albumin Triglycerides Cholesterol LDL Cholesterol Direct HDL Cholesterol Urine WBC (Auto) Urine Creatinine Urine Total Protein Vancomycin Trough Rheumatoid Factor Complement C4 Miscellaneous Test Crossmatch 09/27/16 09/27/16 09/27/16 11:23 15:00 18:15 WBC RBC Hgb Hct MCV MCH MCHC RDW Plt Count Lymph % (Auto) [place] % (Auto) Lymph # [place] # Baso # Seg Neutrophils % Seg Neuts % (Manual) Lymphocytes % (Manual) Monocytes % (Manual) Eosinophils % (Manual) Basophils % (Manual) Nucleated RBC % Seg Neutrophils # Seg Neutrophils # Man Lymphocytes # (Manual) Monocytes # (Manual) Eosinophils # (Manual) PT INR Fibrinogen dRVVT Confirm Interp Factor V Activity POC ABG pH 7.459 H POC ABG pCO2 27.1 L POC ABG pO2 140 H Sodium Potassium Chloride Carbon Dioxide BUN Creatinine Glucose POC Glucose 114 H 127 H Lactic Acid Calcium Phosphorus Magnesium Direct Bilirubin ALT Alkaline Phosphatase Troponin T C-Reactive Protein Total Protein Albumin Triglycerides Cholesterol LDL Cholesterol Direct HDL Cholesterol Urine WBC (Auto) Urine Creatinine Urine Total Protein Vancomycin Trough Rheumatoid Factor Complement C4 Miscellaneous Test Crossmatch 09/27/16 09/27/16 09/28/16 Unknown Unknown 03:45 WBC RBC 2.49 L Hgb 6.8 L Hct 20.7 L MCV MCH 27 L MCHC RDW 22.1 H Plt Count Lymph % (Auto) [place] % (Auto) Lymph # [place] # Baso # Seg Neutrophils % Seg Neuts % (Manual) 32.0 L Lymphocytes % (Manual) 12.0 L Monocytes % (Manual) 11.0 H Eosinophils % (Manual) 10.0 H Basophils % (Manual) Nucleated RBC % Seg Neutrophils # Seg Neutrophils # Man Lymphocytes # (Manual) 1.0 L Monocytes # (Manual) 0.9 H Eosinophils # (Manual) 0.8 H PT INR Fibrinogen dRVVT Confirm Interp Factor V Activity POC ABG pH POC ABG pCO2 POC ABG pO2 Sodium 135 L 135 L Potassium 3.5 L Chloride 93.6 L 94.4 L Carbon Dioxide 17 L 21 L BUN 45 H 28 H Creatinine 3.3 H 2.5 H Glucose 106 H POC Glucose Lactic Acid Calcium 7.3 L 7.1 L Phosphorus Magnesium Direct Bilirubin ALT Alkaline Phosphatase Troponin T C-Reactive Protein Total Protein Albumin Triglycerides Cholesterol LDL Cholesterol Direct HDL Cholesterol Urine WBC (Auto) Urine Creatinine Urine Total Protein Vancomycin Trough Rheumatoid Factor Complement C4 Miscellaneous Test Crossmatch 09/28/16 09/28/16 09/28/16 03:45 07:25 11:58 WBC 13.3 H RBC 3.01 L Hgb 8.4 L Hct 25.0 L MCV MCH MCHC RDW 20.5 H Plt Count 128 L Lymph % (Auto) [place] % (Auto) Lymph # [place] # Baso # Seg Neutrophils % Seg Neuts % (Manual) Lymphocytes % (Manual) 7.0 L Monocytes % (Manual) Eosinophils % (Manual) 6.0 H Basophils % (Manual) Nucleated RBC % Seg Neutrophils # Seg Neutrophils # Man Lymphocytes # (Manual) 0.9 L Monocytes # (Manual) Eosinophils # (Manual) 0.8 H PT INR Fibrinogen dRVVT Confirm Interp Factor V Activity POC ABG pH POC ABG pCO2 POC ABG pO2 Sodium Potassium Chloride Carbon Dioxide BUN Creatinine Glucose POC Glucose 121 H Lactic Acid 4.50 H* Calcium Phosphorus Magnesium Direct Bilirubin ALT Alkaline Phosphatase Troponin T C-Reactive Protein Total Protein Albumin Triglycerides Cholesterol LDL Cholesterol Direct HDL Cholesterol Urine WBC (Auto) Urine Creatinine Urine Total Protein Vancomycin Trough Rheumatoid Factor Complement C4 Miscellaneous Test Crossmatch 09/29/16 09/29/16 09/29/16 06:45 06:45 06:45 WBC 14.9 H RBC 2.74 L Hgb 7.6 L Hct 23.2 L MCV MCH MCHC RDW 20.5 H Plt Count 81 L Lymph % (Auto) [place] % (Auto) Lymph # [place] # Baso # Seg Neutrophils % Seg Neuts % (Manual) 81.0 H Lymphocytes % (Manual) 4.0 L Monocytes % (Manual) Eosinophils % (Manual) Basophils % (Manual) Nucleated RBC % Seg Neutrophils # Seg Neutrophils # Man 12.1 H Lymphocytes # (Manual) 0.6 L Monocytes # (Manual) Eosinophils # (Manual) PT INR Fibrinogen dRVVT Confirm Interp Factor V Activity POC ABG pH POC ABG pCO2 POC ABG pO2 Sodium 133 L Potassium 3.4 L Chloride 92.5 L Carbon Dioxide 21 L BUN 33 H Creatinine 3.0 H Glucose POC Glucose Lactic Acid Calcium 6.6 L Phosphorus Magnesium 1.40 L Direct Bilirubin 0.9 H ALT Alkaline Phosphatase Troponin T C-Reactive Protein Total Protein 4.3 L Albumin 1.3 L Triglycerides Cholesterol LDL Cholesterol Direct HDL Cholesterol Urine WBC (Auto) Urine Creatinine Urine Total Protein Vancomycin Trough Rheumatoid Factor Complement C4 Miscellaneous Test Crossmatch 09/29/16 09/29/16 09/30/16 17:52 20:12 00:07 WBC RBC Hgb Hct MCV MCH MCHC RDW Plt Count Lymph % (Auto) [place] % (Auto) Lymph # [place] # Baso # Seg Neutrophils % Seg Neuts % (Manual) Lymphocytes % (Manual) Monocytes % (Manual) Eosinophils % (Manual) Basophils % (Manual) Nucleated RBC % Seg Neutrophils # Seg Neutrophils # Man Lymphocytes # (Manual) Monocytes # (Manual) Eosinophils # (Manual) PT INR Fibrinogen dRVVT Confirm Interp Factor V Activity POC ABG pH POC ABG pCO2 POC ABG pO2 Sodium Potassium Chloride Carbon Dioxide BUN Creatinine Glucose POC Glucose 50 L 51 L Lactic Acid Calcium Phosphorus Magnesium Direct Bilirubin ALT Alkaline Phosphatase Troponin T 0.204 H* C-Reactive Protein Total Protein Albumin Triglycerides Cholesterol 31 L LDL Cholesterol Direct 4 L HDL Cholesterol 3 L Urine WBC (Auto) Urine Creatinine Urine Total Protein Vancomycin Trough Rheumatoid Factor Complement C4 Miscellaneous Test Crossmatch 09/30/16 09/30/16 09/30/16 01:30 05:15 06:10 WBC RBC Hgb Hct MCV MCH MCHC RDW Plt Count Lymph % (Auto) [place] % (Auto) Lymph # [place] # Baso # Seg Neutrophils % Seg Neuts % (Manual) Lymphocytes % (Manual) Monocytes % (Manual) Eosinophils % (Manual) Basophils % (Manual) Nucleated RBC % Seg Neutrophils # Seg Neutrophils # Man Lymphocytes # (Manual) Monocytes # (Manual) Eosinophils # (Manual) PT INR Fibrinogen dRVVT Confirm Interp Factor V Activity POC ABG pH POC ABG pCO2 POC ABG pO2 Sodium 133 L Potassium 3.2 L Chloride 93.2 L Carbon Dioxide 19 L BUN 36 H Creatinine 3.2 H Glucose 104 H POC Glucose 167 H 146 H Lactic Acid Calcium 6.4 L Phosphorus Magnesium 1.60 L Direct Bilirubin ALT Alkaline Phosphatase Troponin T C-Reactive Protein Total Protein Albumin Triglycerides Cholesterol LDL Cholesterol Direct HDL Cholesterol Urine WBC (Auto) Urine Creatinine Urine Total Protein Vancomycin Trough Rheumatoid Factor Complement C4 Miscellaneous Test Crossmatch 09/30/16 09/30/16 09/30/16 11:26 13:39 18:38 WBC RBC Hgb Hct MCV MCH MCHC RDW Plt Count Lymph % (Auto) [place] % (Auto) Lymph # [place] # Baso # Seg Neutrophils % Seg Neuts % (Manual) Lymphocytes % (Manual) Monocytes % (Manual) Eosinophils % (Manual) Basophils % (Manual) Nucleated RBC % Seg Neutrophils # Seg Neutrophils # Man Lymphocytes # (Manual) Monocytes # (Manual) Eosinophils # (Manual) PT INR Fibrinogen dRVVT Confirm Interp Factor V Activity POC ABG pH 7.479 H POC ABG pCO2 29.8 L POC ABG pO2 117 H Sodium Potassium Chloride Carbon Dioxide BUN Creatinine Glucose POC Glucose 140 H 122 H Lactic Acid Calcium Phosphorus Magnesium Direct Bilirubin ALT Alkaline Phosphatase Troponin T C-Reactive Protein Total Protein Albumin Triglycerides Cholesterol LDL Cholesterol Direct HDL Cholesterol Urine WBC (Auto) Urine Creatinine Urine Total Protein Vancomycin Trough Rheumatoid Factor Complement C4 Miscellaneous Test Crossmatch 10/01/16 10/01/16 10/01/16 06:00 06:00 12:37 WBC 12.6 H RBC 2.75 L Hgb 7.3 L Hct 23.3 L MCV MCH 27 L MCHC RDW 20.6 H Plt Count 72 L Lymph % (Auto) [place] % (Auto) Lymph # [place] # Baso # Seg Neutrophils % Seg Neuts % (Manual) 31.0 L Lymphocytes % (Manual) 8.0 L Monocytes % (Manual) Eosinophils % (Manual) Basophils % (Manual) Nucleated RBC % 3.0 H Seg Neutrophils # Seg Neutrophils # Man Lymphocytes # (Manual) 1.0 L Monocytes # (Manual) Eosinophils # (Manual) PT INR Fibrinogen dRVVT Confirm Interp Factor V Activity POC ABG pH POC ABG pCO2 POC ABG pO2 Sodium 127 L Potassium Chloride 86.8 L Carbon Dioxide 20 L BUN 42 H Creatinine 3.5 H Glucose POC Glucose 65 L Lactic Acid Calcium 7.0 L Phosphorus Magnesium Direct Bilirubin ALT Alkaline Phosphatase Troponin T C-Reactive Protein Total Protein Albumin Triglycerides Cholesterol LDL Cholesterol Direct HDL Cholesterol Urine WBC (Auto) Urine Creatinine Urine Total Protein Vancomycin Trough Rheumatoid Factor Complement C4 Miscellaneous Test Crossmatch 10/01/16 10/01/16 10/02/16 17:39 23:32 00:59 WBC RBC Hgb Hct MCV MCH MCHC RDW Plt Count Lymph % (Auto) [place] % (Auto) Lymph # [place] # Baso # Seg Neutrophils % Seg Neuts % (Manual) Lymphocytes % (Manual) Monocytes % (Manual) Eosinophils % (Manual) Basophils % (Manual) Nucleated RBC % Seg Neutrophils # Seg Neutrophils # Man Lymphocytes # (Manual) Monocytes # (Manual) Eosinophils # (Manual) PT INR Fibrinogen dRVVT Confirm Interp Factor V Activity POC ABG pH POC ABG pCO2 POC ABG pO2 Sodium Potassium Chloride Carbon Dioxide BUN Creatinine Glucose POC Glucose 107 H 52 L 145 H Lactic Acid Calcium Phosphorus Magnesium Direct Bilirubin ALT Alkaline Phosphatase Troponin T C-Reactive Protein Total Protein Albumin Triglycerides Cholesterol LDL Cholesterol Direct HDL Cholesterol Urine WBC (Auto) Urine Creatinine Urine Total Protein Vancomycin Trough Rheumatoid Factor Complement C4 Miscellaneous Test Crossmatch 10/02/16 10/02/16 10/02/16 10:30 10:50 10:50 WBC 14.7 H RBC 2.76 L Hgb 7.4 L Hct 23.6 L MCV MCH 27 L MCHC RDW 20.2 H Plt Count 79 L Lymph % (Auto) [place] % (Auto) Lymph # [place] # Baso # Seg Neutrophils % Seg Neuts % (Manual) 86.0 H Lymphocytes % (Manual) 6.0 L Monocytes % (Manual) Eosinophils % (Manual) Basophils % (Manual) Nucleated RBC % Seg Neutrophils # Seg Neutrophils # Man 12.6 H Lymphocytes # (Manual) 0.9 L Monocytes # (Manual) Eosinophils # (Manual) PT INR Fibrinogen dRVVT Confirm Interp Factor V Activity POC ABG pH 7.486 H POC ABG pCO2 30.1 L POC ABG pO2 108 H Sodium 131 L Potassium 3.4 L Chloride 89.9 L Carbon Dioxide BUN 26 H Creatinine 2.6 H Glucose POC Glucose Lactic Acid Calcium 7.0 L Phosphorus Magnesium Direct Bilirubin ALT Alkaline Phosphatase Troponin T C-Reactive Protein Total Protein Albumin Triglycerides Cholesterol LDL Cholesterol Direct HDL Cholesterol Urine WBC (Auto) Urine Creatinine Urine Total Protein Vancomycin Trough Rheumatoid Factor Complement C4 Miscellaneous Test Crossmatch 10/02/16 10/03/16 10/03/16 23:45 00:45 05:10 WBC 12.9 H RBC 2.77 L Hgb 7.6 L Hct 23.7 L MCV MCH 27 L MCHC RDW 19.7 H Plt Count 89 L Lymph % (Auto) [place] % (Auto) Lymph # [place] # Baso # Seg Neutrophils % Seg Neuts % (Manual) Lymphocytes % (Manual) 8.0 L Monocytes % (Manual) Eosinophils % (Manual) Basophils % (Manual) Nucleated RBC % Seg Neutrophils # 11.9 H Seg Neutrophils # Man Lymphocytes # (Manual) 1.0 L Monocytes # (Manual) Eosinophils # (Manual) PT INR Fibrinogen dRVVT Confirm Interp Factor V Activity POC ABG pH POC ABG pCO2 POC ABG pO2 Sodium Potassium Chloride Carbon Dioxide BUN Creatinine Glucose POC Glucose 55 L 199 H Lactic Acid Calcium Phosphorus Magnesium Direct Bilirubin ALT Alkaline Phosphatase Troponin T C-Reactive Protein Total Protein Albumin Triglycerides Cholesterol LDL Cholesterol Direct HDL Cholesterol Urine WBC (Auto) Urine Creatinine Urine Total Protein Vancomycin Trough Rheumatoid Factor Complement C4 Miscellaneous Test Crossmatch 10/03/16 10/03/16 10/03/16 05:10 12:14 13:18 WBC RBC Hgb Hct MCV MCH MCHC RDW Plt Count Lymph % (Auto) [place] % (Auto) Lymph # [place] # Baso # Seg Neutrophils % Seg Neuts % (Manual) Lymphocytes % (Manual) Monocytes % (Manual) Eosinophils % (Manual) Basophils % (Manual) Nucleated RBC % Seg Neutrophils # Seg Neutrophils # Man Lymphocytes # (Manual) Monocytes # (Manual) Eosinophils # (Manual) PT INR Fibrinogen dRVVT Confirm Interp Factor V Activity POC ABG pH POC ABG pCO2 POC ABG pO2 Sodium 129 L Potassium 3.3 L Chloride 88.8 L Carbon Dioxide 20 L BUN 29 H Creatinine 2.8 H Glucose POC Glucose 68 L 127 H Lactic Acid Calcium 7.2 L Phosphorus Magnesium Direct Bilirubin ALT Alkaline Phosphatase Troponin T C-Reactive Protein Total Protein Albumin Triglycerides Cholesterol LDL Cholesterol Direct HDL Cholesterol Urine WBC (Auto) Urine Creatinine Urine Total Protein Vancomycin Trough Rheumatoid Factor Complement C4 Miscellaneous Test Crossmatch 10/03/16 10/03/16 10/03/16 14:42 18:21 19:09 WBC RBC Hgb Hct MCV MCH MCHC RDW Plt Count Lymph % (Auto) [place] % (Auto) Lymph # [place] # Baso # Seg Neutrophils % Seg Neuts % (Manual) Lymphocytes % (Manual) Monocytes % (Manual) Eosinophils % (Manual) Basophils % (Manual) Nucleated RBC % Seg Neutrophils # Seg Neutrophils # Man Lymphocytes # (Manual) Monocytes # (Manual) Eosinophils # (Manual) PT INR Fibrinogen dRVVT Confirm Interp Factor V Activity POC ABG pH 7.499 H POC ABG pCO2 28.4 L POC ABG pO2 44 L Sodium Potassium Chloride Carbon Dioxide BUN Creatinine Glucose POC Glucose 64 L 205 H Lactic Acid Calcium Phosphorus Magnesium Direct Bilirubin ALT Alkaline Phosphatase Troponin T C-Reactive Protein Total Protein Albumin Triglycerides Cholesterol LDL Cholesterol Direct HDL Cholesterol Urine WBC (Auto) Urine Creatinine Urine Total Protein Vancomycin Trough Rheumatoid Factor Complement C4 Miscellaneous Test Crossmatch 10/03/16 10/04/16 10/04/16 23:33 04:18 06:30 WBC RBC 2.54 L Hgb 7.1 L Hct 21.7 L MCV MCH MCHC RDW 19.5 H Plt Count 76 L Lymph % (Auto) [place] % (Auto) Lymph # [place] # Baso # Seg Neutrophils % Seg Neuts % (Manual) 88.0 H Lymphocytes % (Manual) 6.0 L Monocytes % (Manual) Eosinophils % (Manual) Basophils % (Manual) Nucleated RBC % Seg Neutrophils # Seg Neutrophils # Man 8.8 H Lymphocytes # (Manual) 0.6 L Monocytes # (Manual) Eosinophils # (Manual) PT INR Fibrinogen dRVVT Confirm Interp Factor V Activity POC ABG pH 7.461 H POC ABG pCO2 33.6 L POC ABG pO2 211 H Sodium Potassium Chloride Carbon Dioxide BUN Creatinine Glucose POC Glucose 136 H Lactic Acid Calcium Phosphorus Magnesium Direct Bilirubin ALT Alkaline Phosphatase Troponin T C-Reactive Protein Total Protein Albumin Triglycerides Cholesterol LDL Cholesterol Direct HDL Cholesterol Urine WBC (Auto) Urine Creatinine Urine Total Protein Vancomycin Trough Rheumatoid Factor Complement C4 Miscellaneous Test Crossmatch 10/04/16 10/04/16 10/04/16 06:30 11:45 17:54 WBC RBC Hgb Hct MCV MCH MCHC RDW Plt Count Lymph % (Auto) [place] % (Auto) Lymph # [place] # Baso # Seg Neutrophils % Seg Neuts % (Manual) Lymphocytes % (Manual) Monocytes % (Manual) Eosinophils % (Manual) Basophils % (Manual) Nucleated RBC % Seg Neutrophils # Seg Neutrophils # Man Lymphocytes # (Manual) Monocytes # (Manual) Eosinophils # (Manual) PT INR Fibrinogen dRVVT Confirm Interp Factor V Activity POC ABG pH POC ABG pCO2 POC ABG pO2 Sodium 128 L Potassium Chloride 87.4 L Carbon Dioxide 20 L BUN 34 H Creatinine 2.9 H Glucose 127 H POC Glucose 158 H 160 H Lactic Acid Calcium 7.4 L Phosphorus Magnesium Direct Bilirubin ALT Alkaline Phosphatase Troponin T C-Reactive Protein Total Protein Albumin Triglycerides Cholesterol LDL Cholesterol Direct HDL Cholesterol Urine WBC (Auto) Urine Creatinine Urine Total Protein Vancomycin Trough Rheumatoid Factor Complement C4 Miscellaneous Test Crossmatch 10/04/16 10/05/16 10/05/16 23:25 04:30 05:00 WBC RBC 2.64 L Hgb 7.5 L Hct 22.6 L MCV MCH MCHC RDW 19.3 H Plt Count 80 L Lymph % (Auto) [place] % (Auto) Lymph # [place] # Baso # Seg Neutrophils % Seg Neuts % (Manual) Lymphocytes % (Manual) 12.0 L Monocytes % (Manual) Eosinophils % (Manual) Basophils % (Manual) Nucleated RBC % Seg Neutrophils # Seg Neutrophils # Man Lymphocytes # (Manual) Monocytes # (Manual) Eosinophils # (Manual) PT INR Fibrinogen dRVVT Confirm Interp Factor V Activity POC ABG pH 7.475 H POC ABG pCO2 33.3 L POC ABG pO2 140 H Sodium Potassium Chloride Carbon Dioxide BUN Creatinine Glucose POC Glucose 141 H Lactic Acid Calcium Phosphorus Magnesium Direct Bilirubin ALT Alkaline Phosphatase Troponin T C-Reactive Protein Total Protein Albumin Triglycerides Cholesterol LDL Cholesterol Direct HDL Cholesterol Urine WBC (Auto) Urine Creatinine Urine Total Protein Vancomycin Trough Rheumatoid Factor Complement C4 Miscellaneous Test Crossmatch 10/05/16 10/05/16 10/05/16 05:00 05:09 12:58 WBC RBC Hgb Hct MCV MCH MCHC RDW Plt Count Lymph % (Auto) [place] % (Auto) Lymph # [place] # Baso # Seg Neutrophils % Seg Neuts % (Manual) Lymphocytes % (Manual) Monocytes % (Manual) Eosinophils % (Manual) Basophils % (Manual) Nucleated RBC % Seg Neutrophils # Seg Neutrophils # Man Lymphocytes # (Manual) Monocytes # (Manual) Eosinophils # (Manual) PT INR Fibrinogen dRVVT Confirm Interp Factor V Activity POC ABG pH POC ABG pCO2 POC ABG pO2 Sodium 131 L Potassium Chloride 94.0 L Carbon Dioxide 20 L BUN 22 H Creatinine 2.0 H Glucose 123 H POC Glucose 166 H 179 H Lactic Acid Calcium 7.7 L Phosphorus 2.20 L D Magnesium Direct Bilirubin ALT Alkaline Phosphatase Troponin T C-Reactive Protein Total Protein Albumin Triglycerides Cholesterol LDL Cholesterol Direct HDL Cholesterol Urine WBC (Auto) Urine Creatinine Urine Total Protein Vancomycin Trough Rheumatoid Factor Complement C4 Miscellaneous Test Crossmatch 10/05/16 10/05/16 10/05/16 15:50 18:53 23:12 WBC RBC Hgb Hct MCV MCH MCHC RDW Plt Count Lymph % (Auto) [place] % (Auto) Lymph # [place] # Baso # Seg Neutrophils % Seg Neuts % (Manual) Lymphocytes % (Manual) Monocytes % (Manual) Eosinophils % (Manual) Basophils % (Manual) Nucleated RBC % Seg Neutrophils # Seg Neutrophils # Man Lymphocytes # (Manual) Monocytes # (Manual) Eosinophils # (Manual) PT INR Fibrinogen dRVVT Confirm Interp Factor V Activity POC ABG pH POC ABG pCO2 POC ABG pO2 Sodium Potassium Chloride Carbon Dioxide BUN Creatinine Glucose POC Glucose 150 H 164 H Lactic Acid Calcium Phosphorus Magnesium Direct Bilirubin ALT Alkaline Phosphatase Troponin T C-Reactive Protein Total Protein Albumin Triglycerides Cholesterol LDL Cholesterol Direct HDL Cholesterol Urine WBC (Auto) Urine Creatinine Urine Total Protein Vancomycin Trough Rheumatoid Factor Complement C4 Miscellaneous Test Crossmatch See Detail 10/06/16 10/06/16 10/06/16 03:50 03:50 04:53 WBC RBC 3.00 L Hgb 8.6 L Hct 25.8 L MCV MCH MCHC RDW 17.9 H Plt Count 65 L Lymph % (Auto) [place] % (Auto) Lymph # [place] # Baso # Seg Neutrophils % Seg Neuts % (Manual) 30.0 L Lymphocytes % (Manual) 5.0 L Monocytes % (Manual) Eosinophils % (Manual) Basophils % (Manual) Nucleated RBC % Seg Neutrophils # Seg Neutrophils # Man Lymphocytes # (Manual) 0.4 L Monocytes # (Manual) Eosinophils # (Manual) PT INR Fibrinogen dRVVT Confirm Interp Factor V Activity POC ABG pH 7.310 L POC ABG pCO2 49.0 H POC ABG pO2 Sodium 133 L Potassium Chloride 95.9 L Carbon Dioxide BUN 26 H Creatinine 2.0 H Glucose 116 H POC Glucose Lactic Acid Calcium 7.8 L Phosphorus Magnesium Direct Bilirubin ALT Alkaline Phosphatase Troponin T C-Reactive Protein Total Protein Albumin Triglycerides Cholesterol LDL Cholesterol Direct HDL Cholesterol Urine WBC (Auto) Urine Creatinine Urine Total Protein Vancomycin Trough Rheumatoid Factor Complement C4 Miscellaneous Test Crossmatch 10/06/16 10/06/16 10/06/16 05:23 11:52 18:34 WBC RBC Hgb Hct MCV MCH MCHC RDW Plt Count Lymph % (Auto) [place] % (Auto) Lymph # [place] # Baso # Seg Neutrophils % Seg Neuts % (Manual) Lymphocytes % (Manual) Monocytes % (Manual) Eosinophils % (Manual) Basophils % (Manual) Nucleated RBC % Seg Neutrophils # Seg Neutrophils # Man Lymphocytes # (Manual) Monocytes # (Manual) Eosinophils # (Manual) PT INR Fibrinogen dRVVT Confirm Interp Factor V Activity POC ABG pH POC ABG pCO2 POC ABG pO2 Sodium Potassium Chloride Carbon Dioxide BUN Creatinine Glucose POC Glucose 126 H 116 H 129 H Lactic Acid Calcium Phosphorus Magnesium Direct Bilirubin ALT Alkaline Phosphatase Troponin T C-Reactive Protein Total Protein Albumin Triglycerides Cholesterol LDL Cholesterol Direct HDL Cholesterol Urine WBC (Auto) Urine Creatinine Urine Total Protein Vancomycin Trough Rheumatoid Factor Complement C4 Miscellaneous Test Crossmatch 10/07/16 10/07/16 10/07/16 03:45 05:00 10:00 WBC 17.0 H RBC 2.68 L Hgb 7.3 L Hct 25.3 L MCV MCH 27 L MCHC 29 L RDW 19.6 H Plt Count 74 L Lymph % (Auto) [place] % (Auto) Lymph # [place] # Baso # Seg Neutrophils % Seg Neuts % (Manual) Lymphocytes % (Manual) 12.0 L Monocytes % (Manual) Eosinophils % (Manual) Basophils % (Manual) Nucleated RBC % 4.0 H Seg Neutrophils # Seg Neutrophils # Man 10.7 H Lymphocytes # (Manual) Monocytes # (Manual) Eosinophils # (Manual) PT INR Fibrinogen dRVVT Confirm Interp Factor V Activity POC ABG pH POC ABG pCO2 POC ABG pO2 Sodium 130 L Potassium 3.2 L Chloride 93.9 L Carbon Dioxide 20 L BUN 44 H Creatinine 2.7 H Glucose 129 H POC Glucose Lactic Acid Calcium 7.4 L Phosphorus Magnesium Direct Bilirubin ALT 6 L Alkaline Phosphatase 195 H Troponin T C-Reactive Protein Total Protein 4.9 L Albumin 1.0 L Triglycerides Cholesterol LDL Cholesterol Direct HDL Cholesterol Urine WBC (Auto) Urine Creatinine Urine Total Protein Vancomycin Trough Rheumatoid Factor Complement C4 Miscellaneous Test Flexitest 1 H Crossmatch 10/07/16 10/07/16 10/07/16 10:00 11:24 18:10 WBC RBC Hgb Hct MCV MCH MCHC RDW Plt Count Lymph % (Auto) [place] % (Auto) Lymph # [place] # Baso # Seg Neutrophils % Seg Neuts % (Manual) Lymphocytes % (Manual) Monocytes % (Manual) Eosinophils % (Manual) Basophils % (Manual) Nucleated RBC % Seg Neutrophils # Seg Neutrophils # Man Lymphocytes # (Manual) Monocytes # (Manual) Eosinophils # (Manual) PT INR Fibrinogen dRVVT Confirm Interp Factor V Activity POC ABG pH POC ABG pCO2 POC ABG pO2 Sodium Potassium Chloride Carbon Dioxide BUN Creatinine Glucose POC Glucose 116 H 130 H Lactic Acid Calcium Phosphorus Magnesium Direct Bilirubin ALT Alkaline Phosphatase Troponin T C-Reactive Protein 19.40 H Total Protein Albumin Triglycerides Cholesterol LDL Cholesterol Direct HDL Cholesterol Urine WBC (Auto) Urine Creatinine Urine Total Protein Vancomycin Trough Rheumatoid Factor Complement C4 Miscellaneous Test Crossmatch 10/07/16 10/08/16 10/08/16 18:30 00:00 04:00 WBC RBC Hgb Hct MCV MCH MCHC RDW Plt Count Lymph % (Auto) [place] % (Auto) Lymph # [place] # Baso # Seg Neutrophils % Seg Neuts % (Manual) Lymphocytes % (Manual) Monocytes % (Manual) Eosinophils % (Manual) Basophils % (Manual) Nucleated RBC % Seg Neutrophils # Seg Neutrophils # Man Lymphocytes # (Manual) Monocytes # (Manual) Eosinophils # (Manual) PT INR Fibrinogen dRVVT Confirm Interp Factor V Activity POC ABG pH POC ABG pCO2 POC ABG pO2 Sodium 132 L Potassium 3.3 L Chloride 93.6 L Carbon Dioxide 17 L BUN 59 H Creatinine 2.7 H Glucose 121 H POC Glucose 122 H Lactic Acid Calcium 7.6 L Phosphorus Magnesium Direct Bilirubin ALT Alkaline Phosphatase Troponin T C-Reactive Protein Total Protein Albumin Triglycerides Cholesterol LDL Cholesterol Direct HDL Cholesterol Urine WBC (Auto) > 182.0 H Urine Creatinine Urine Total Protein Vancomycin Trough Rheumatoid Factor Complement C4 Miscellaneous Test Crossmatch 10/08/16 10/08/16 10/08/16 04:30 05:30 11:51 WBC RBC 5.15 H Hgb 14.4 H D Hct 44.5 H D MCV MCH MCHC RDW 19.5 H Plt Count 56 L Lymph % (Auto) [place] % (Auto) Lymph # [place] # Baso # Seg Neutrophils % Seg Neuts % (Manual) 24.0 L Lymphocytes % (Manual) 8.0 L Monocytes % (Manual) Eosinophils % (Manual) Basophils % (Manual) Nucleated RBC % 9.0 H Seg Neutrophils # Seg Neutrophils # Man Lymphocytes # (Manual) 0.7 L Monocytes # (Manual) Eosinophils # (Manual) PT INR Fibrinogen dRVVT Confirm Interp Factor V Activity POC ABG pH POC ABG pCO2 POC ABG pO2 Sodium Potassium Chloride Carbon Dioxide BUN Creatinine Glucose POC Glucose 125 H 150 H Lactic Acid Calcium Phosphorus Magnesium Direct Bilirubin ALT Alkaline Phosphatase Troponin T C-Reactive Protein Total Protein Albumin Triglycerides Cholesterol LDL Cholesterol Direct HDL Cholesterol Urine WBC (Auto) Urine Creatinine Urine Total Protein Vancomycin Trough Rheumatoid Factor Complement C4 Miscellaneous Test Crossmatch 10/08/16 10/08/16 10/08/16 12:49 17:07 19:30 WBC RBC Hgb 7.1 L D Hct 22.4 L D MCV MCH MCHC RDW Plt Count Lymph % (Auto) [place] % (Auto) Lymph # [place] # Baso # Seg Neutrophils % Seg Neuts % (Manual) Lymphocytes % (Manual) Monocytes % (Manual) Eosinophils % (Manual) Basophils % (Manual) Nucleated RBC % Seg Neutrophils # Seg Neutrophils # Man Lymphocytes # (Manual) Monocytes # (Manual) Eosinophils # (Manual) PT INR Fibrinogen dRVVT Confirm Interp Factor V Activity POC ABG pH POC ABG pCO2 28.2 L POC ABG pO2 111 H Sodium Potassium Chloride Carbon Dioxide BUN Creatinine Glucose POC Glucose 145 H Lactic Acid Calcium Phosphorus Magnesium Direct Bilirubin ALT Alkaline Phosphatase Troponin T C-Reactive Protein Total Protein Albumin Triglycerides Cholesterol LDL Cholesterol Direct HDL Cholesterol Urine WBC (Auto) Urine Creatinine Urine Total Protein Vancomycin Trough Rheumatoid Factor Complement C4 Miscellaneous Test Crossmatch 10/08/16 10/09/16 10/09/16 19:30 03:45 03:45 WBC 12.6 H RBC 2.36 L Hgb 6.7 L Hct 21.1 L MCV MCH MCHC RDW 19.5 H Plt Count 75 L Lymph % (Auto) [place] % (Auto) Lymph # [place] # Baso # Seg Neutrophils % Seg Neuts % (Manual) Lymphocytes % (Manual) Monocytes % (Manual) 10.0 H Eosinophils % (Manual) Basophils % (Manual) Nucleated RBC % 3.0 H Seg Neutrophils # Seg Neutrophils # Man Lymphocytes # (Manual) Monocytes # (Manual) 1.3 H Eosinophils # (Manual) PT 18.0 H INR 1.41 H Fibrinogen dRVVT Confirm Interp Factor V Activity POC ABG pH POC ABG pCO2 POC ABG pO2 Sodium 135 L Potassium Chloride Carbon Dioxide 17 L BUN 81 H Creatinine 3.2 H Glucose 109 H POC Glucose Lactic Acid Calcium 7.4 L Phosphorus 4.60 H D Magnesium Direct Bilirubin ALT Alkaline Phosphatase Troponin T C-Reactive Protein Total Protein Albumin Triglycerides Cholesterol LDL Cholesterol Direct HDL Cholesterol Urine WBC (Auto) Urine Creatinine Urine Total Protein Vancomycin Trough Rheumatoid Factor Complement C4 Miscellaneous Test Crossmatch 10/09/16 10/09/16 10/09/16 03:45 05:14 07:20 WBC RBC Hgb Hct MCV MCH MCHC RDW Plt Count Lymph % (Auto) [place] % (Auto) Lymph # [place] # Baso # Seg Neutrophils % Seg Neuts % (Manual) Lymphocytes % (Manual) Monocytes % (Manual) Eosinophils % (Manual) Basophils % (Manual) Nucleated RBC % Seg Neutrophils # Seg Neutrophils # Man Lymphocytes # (Manual) Monocytes # (Manual) Eosinophils # (Manual) PT 19.0 H INR 1.51 H Fibrinogen dRVVT Confirm Interp Factor V Activity POC ABG pH POC ABG pCO2 POC ABG pO2 Sodium Potassium Chloride Carbon Dioxide BUN Creatinine Glucose POC Glucose 151 H Lactic Acid Calcium Phosphorus Magnesium Direct Bilirubin ALT Alkaline Phosphatase Troponin T C-Reactive Protein Total Protein Albumin Triglycerides Cholesterol LDL Cholesterol Direct HDL Cholesterol Urine WBC (Auto) Urine Creatinine Urine Total Protein Vancomycin Trough Rheumatoid Factor Complement C4 Miscellaneous Test Crossmatch See Detail 10/09/16 10/09/16 10/09/16 11:46 16:20 16:43 WBC RBC Hgb 7.2 L Hct 22.2 L MCV MCH MCHC RDW Plt Count Lymph % (Auto) [place] % (Auto) Lymph # [place] # Baso # Seg Neutrophils % Seg Neuts % (Manual) Lymphocytes % (Manual) Monocytes % (Manual) Eosinophils % (Manual) Basophils % (Manual) Nucleated RBC % Seg Neutrophils # Seg Neutrophils # Man Lymphocytes # (Manual) Monocytes # (Manual) Eosinophils # (Manual) PT INR Fibrinogen dRVVT Confirm Interp Factor V Activity POC ABG pH POC ABG pCO2 POC ABG pO2 Sodium Potassium Chloride Carbon Dioxide BUN Creatinine Glucose POC Glucose 133 H 141 H Lactic Acid Calcium Phosphorus Magnesium Direct Bilirubin ALT Alkaline Phosphatase Troponin T C-Reactive Protein Total Protein Albumin Triglycerides Cholesterol LDL Cholesterol Direct HDL Cholesterol Urine WBC (Auto) Urine Creatinine Urine Total Protein Vancomycin Trough Rheumatoid Factor Complement C4 Miscellaneous Test Crossmatch 10/10/16 10/10/16 10/10/16 05:00 05:00 11:19 WBC 18.5 H RBC 2.19 L Hgb 6.4 L Hct 19.6 L* MCV MCH MCHC RDW 19.3 H Plt Count 93 L Lymph % (Auto) [place] % (Auto) Lymph # [place] # Baso # Seg Neutrophils % Seg Neuts % (Manual) Lymphocytes % (Manual) 10.0 L Monocytes % (Manual) Eosinophils % (Manual) Basophils % (Manual) Nucleated RBC % 4.0 H Seg Neutrophils # Seg Neutrophils # Man 11.3 H Lymphocytes # (Manual) Monocytes # (Manual) Eosinophils # (Manual) PT INR Fibrinogen dRVVT Confirm Interp Factor V Activity POC ABG pH POC ABG pCO2 POC ABG pO2 Sodium Potassium 5.7 H D Chloride Carbon Dioxide 16 L BUN 94 H Creatinine 3.1 H Glucose 131 H POC Glucose 153 H Lactic Acid Calcium 8.2 L Phosphorus 5.10 H Magnesium 2.40 H Direct Bilirubin 0.3 H ALT < 5 L Alkaline Phosphatase 319 H Troponin T C-Reactive Protein Total Protein 5.1 L Albumin 1.0 L Triglycerides Cholesterol LDL Cholesterol Direct HDL Cholesterol Urine WBC (Auto) Urine Creatinine Urine Total Protein Vancomycin Trough Rheumatoid Factor Complement C4 Miscellaneous Test Crossmatch 10/10/16 10/10/16 10/11/16 17:50 23:30 04:15 WBC RBC Hgb Hct MCV MCH MCHC RDW Plt Count Lymph % (Auto) [place] % (Auto) Lymph # [place] # Baso # Seg Neutrophils % Seg Neuts % (Manual) Lymphocytes % (Manual) Monocytes % (Manual) Eosinophils % (Manual) Basophils % (Manual) Nucleated RBC % Seg Neutrophils # Seg Neutrophils # Man Lymphocytes # (Manual) Monocytes # (Manual) Eosinophils # (Manual) PT INR Fibrinogen dRVVT Confirm Interp Factor V Activity POC ABG pH POC ABG pCO2 POC ABG pO2 Sodium Potassium Chloride 96.4 L Carbon Dioxide 21 L BUN 57 H Creatinine 2.1 H Glucose 151 H POC Glucose 146 H 141 H Lactic Acid Calcium 8.3 L Phosphorus Magnesium Direct Bilirubin ALT Alkaline Phosphatase Troponin T C-Reactive Protein Total Protein Albumin Triglycerides Cholesterol LDL Cholesterol Direct HDL Cholesterol Urine WBC (Auto) Urine Creatinine Urine Total Protein Vancomycin Trough Rheumatoid Factor Complement C4 Miscellaneous Test Crossmatch 10/11/16 10/11/16 10/11/16 04:15 04:15 05:30 WBC 28.3 H RBC 3.12 L Hgb 9.3 L Hct 28.7 L D MCV MCH MCHC RDW 17.7 H Plt Count 128 L Lymph % (Auto) [place] % (Auto) Lymph # [place] # Baso # Seg Neutrophils % Seg Neuts % (Manual) Lymphocytes % (Manual) Monocytes % (Manual) Eosinophils % (Manual) Basophils % (Manual) Nucleated RBC % Seg Neutrophils # Seg Neutrophils # Man Lymphocytes # (Manual) Monocytes # (Manual) Eosinophils # (Manual) PT INR Fibrinogen dRVVT Confirm Interp Factor V Activity POC ABG pH POC ABG pCO2 POC ABG pO2 Sodium Potassium Chloride Carbon Dioxide BUN Creatinine Glucose POC Glucose 167 H Lactic Acid Calcium Phosphorus Magnesium Direct Bilirubin ALT Alkaline Phosphatase Troponin T C-Reactive Protein 15.80 H Total Protein Albumin Triglycerides Cholesterol LDL Cholesterol Direct HDL Cholesterol Urine WBC (Auto) Urine Creatinine Urine Total Protein Vancomycin Trough Rheumatoid Factor Complement C4 Miscellaneous Test Crossmatch 10/11/16 10/11/16 10/11/16 11:40 15:49 23:57 WBC RBC Hgb Hct MCV MCH MCHC RDW Plt Count Lymph % (Auto) [place] % (Auto) Lymph # [place] # Baso # Seg Neutrophils % Seg Neuts % (Manual) Lymphocytes % (Manual) Monocytes % (Manual) Eosinophils % (Manual) Basophils % (Manual) Nucleated RBC % Seg Neutrophils # Seg Neutrophils # Man Lymphocytes # (Manual) Monocytes # (Manual) Eosinophils # (Manual) PT INR Fibrinogen dRVVT Confirm Interp Factor V Activity POC ABG pH POC ABG pCO2 POC ABG pO2 Sodium Potassium Chloride Carbon Dioxide BUN Creatinine Glucose POC Glucose 139 H 168 H 161 H Lactic Acid Calcium Phosphorus Magnesium Direct Bilirubin ALT Alkaline Phosphatase Troponin T C-Reactive Protein Total Protein Albumin Triglycerides Cholesterol LDL Cholesterol Direct HDL Cholesterol Urine WBC (Auto) Urine Creatinine Urine Total Protein Vancomycin Trough Rheumatoid Factor Complement C4 Miscellaneous Test Crossmatch 10/12/16 10/12/16 10/12/16 04:40 04:40 05:44 WBC 22.5 H RBC 2.88 L Hgb 8.8 L Hct 26.8 L MCV MCH MCHC RDW 17.8 H Plt Count Lymph % (Auto) [place] % (Auto) Lymph # [place] # Baso # Seg Neutrophils % Seg Neuts % (Manual) Lymphocytes % (Manual) Monocytes % (Manual) Eosinophils % (Manual) Basophils % (Manual) Nucleated RBC % Seg Neutrophils # Seg Neutrophils # Man Lymphocytes # (Manual) Monocytes # (Manual) Eosinophils # (Manual) PT INR Fibrinogen dRVVT Confirm Interp Factor V Activity POC ABG pH POC ABG pCO2 POC ABG pO2 Sodium 134 L Potassium Chloride 93.0 L Carbon Dioxide BUN 74 H Creatinine 2.5 H Glucose 137 H POC Glucose 158 H Lactic Acid Calcium 8.2 L Phosphorus Magnesium Direct Bilirubin ALT Alkaline Phosphatase Troponin T C-Reactive Protein Total Protein Albumin Triglycerides Cholesterol LDL Cholesterol Direct HDL Cholesterol Urine WBC (Auto) Urine Creatinine Urine Total Protein Vancomycin Trough Rheumatoid Factor Complement C4 Miscellaneous Test Crossmatch 10/12/16 10/12/16 10/12/16 12:27 18:18 23:46 WBC RBC Hgb Hct MCV MCH MCHC RDW Plt Count Lymph % (Auto) [place] % (Auto) Lymph # [place] # Baso # Seg Neutrophils % Seg Neuts % (Manual) Lymphocytes % (Manual) Monocytes % (Manual) Eosinophils % (Manual) Basophils % (Manual) Nucleated RBC % Seg Neutrophils # Seg Neutrophils # Man Lymphocytes # (Manual) Monocytes # (Manual) Eosinophils # (Manual) PT INR Fibrinogen dRVVT Confirm Interp Factor V Activity POC ABG pH POC ABG pCO2 POC ABG pO2 Sodium Potassium Chloride Carbon Dioxide BUN Creatinine Glucose POC Glucose 153 H 140 H 150 H Lactic Acid Calcium Phosphorus Magnesium Direct Bilirubin ALT Alkaline Phosphatase Troponin T C-Reactive Protein Total Protein Albumin Triglycerides Cholesterol LDL Cholesterol Direct HDL Cholesterol Urine WBC (Auto) Urine Creatinine Urine Total Protein Vancomycin Trough Rheumatoid Factor Complement C4 Miscellaneous Test Crossmatch 10/13/16 10/13/16 10/13/16 06:22 09:20 12:29 WBC RBC Hgb Hct MCV MCH MCHC RDW Plt Count Lymph % (Auto) [place] % (Auto) Lymph # [place] # Baso # Seg Neutrophils % Seg Neuts % (Manual) Lymphocytes % (Manual) Monocytes % (Manual) Eosinophils % (Manual) Basophils % (Manual) Nucleated RBC % Seg Neutrophils # Seg Neutrophils # Man Lymphocytes # (Manual) Monocytes # (Manual) Eosinophils # (Manual) PT INR Fibrinogen dRVVT Confirm Interp Factor V Activity POC ABG pH POC ABG pCO2 POC ABG pO2 Sodium Potassium Chloride Carbon Dioxide BUN Creatinine Glucose POC Glucose 165 H 193 H Lactic Acid Calcium Phosphorus Magnesium Direct Bilirubin ALT Alkaline Phosphatase Troponin T C-Reactive Protein Total Protein Albumin Triglycerides Cholesterol LDL Cholesterol Direct HDL Cholesterol Urine WBC (Auto) Urine Creatinine Urine Total Protein Vancomycin Trough Rheumatoid Factor Complement C4 Miscellaneous Test Flexitest 1 H Crossmatch 10/13/16 10/13/16 10/13/16 18:09 Unknown Unknown WBC 23.4 H RBC 2.83 L Hgb 8.7 L Hct 26.1 L MCV MCH MCHC RDW 18.1 H Plt Count Lymph % (Auto) [place] % (Auto) Lymph # [place] # Baso # Seg Neutrophils % Seg Neuts % (Manual) Lymphocytes % (Manual) Monocytes % (Manual) Eosinophils % (Manual) Basophils % (Manual) Nucleated RBC % Seg Neutrophils # Seg Neutrophils # Man Lymphocytes # (Manual) Monocytes # (Manual) Eosinophils # (Manual) PT INR Fibrinogen dRVVT Confirm Interp Factor V Activity POC ABG pH POC ABG pCO2 POC ABG pO2 Sodium Potassium Chloride 95.8 L Carbon Dioxide BUN 82 H Creatinine 2.6 H Glucose 152 H POC Glucose 166 H Lactic Acid Calcium Phosphorus Magnesium Direct Bilirubin ALT Alkaline Phosphatase Troponin T C-Reactive Protein Total Protein Albumin Triglycerides Cholesterol LDL Cholesterol Direct HDL Cholesterol Urine WBC (Auto) Urine Creatinine Urine Total Protein Vancomycin Trough Rheumatoid Factor Complement C4 Miscellaneous Test Crossmatch 10/14/16 10/14/16 10/14/16 05:38 06:35 08:10 WBC 20.7 H RBC 2.81 L Hgb 8.4 L Hct 27.2 L MCV MCH MCHC RDW 19.4 H Plt Count Lymph % (Auto) [place] % (Auto) Lymph # [place] # Baso # Seg Neutrophils % Seg Neuts % (Manual) Lymphocytes % (Manual) Monocytes % (Manual) Eosinophils % (Manual) Basophils % (Manual) Nucleated RBC % Seg Neutrophils # Seg Neutrophils # Man Lymphocytes # (Manual) Monocytes # (Manual) Eosinophils # (Manual) PT INR Fibrinogen dRVVT Confirm Interp Factor V Activity POC ABG pH POC ABG pCO2 POC ABG pO2 Sodium Potassium Chloride Carbon Dioxide BUN 58 H Creatinine 1.9 H Glucose 169 H POC Glucose 195 H Lactic Acid Calcium Phosphorus Magnesium Direct Bilirubin ALT Alkaline Phosphatase Troponin T C-Reactive Protein Total Protein Albumin Triglycerides Cholesterol LDL Cholesterol Direct HDL Cholesterol Urine WBC (Auto) Urine Creatinine Urine Total Protein Vancomycin Trough Rheumatoid Factor Complement C4 Miscellaneous Test Crossmatch 10/14/16 10/14/16 10/14/16 11:44 17:13 23:28 WBC RBC Hgb Hct MCV MCH MCHC RDW Plt Count Lymph % (Auto) [place] % (Auto) Lymph # [place] # Baso # Seg Neutrophils % Seg Neuts % (Manual) Lymphocytes % (Manual) Monocytes % (Manual) Eosinophils % (Manual) Basophils % (Manual) Nucleated RBC % Seg Neutrophils # Seg Neutrophils # Man Lymphocytes # (Manual) Monocytes # (Manual) Eosinophils # (Manual) PT INR Fibrinogen dRVVT Confirm Interp Factor V Activity POC ABG pH POC ABG pCO2 POC ABG pO2 Sodium Potassium Chloride Carbon Dioxide BUN Creatinine Glucose POC Glucose 174 H 121 H 151 H Lactic Acid Calcium Phosphorus Magnesium Direct Bilirubin ALT Alkaline Phosphatase Troponin T C-Reactive Protein Total Protein Albumin Triglycerides Cholesterol LDL Cholesterol Direct HDL Cholesterol Urine WBC (Auto) Urine Creatinine Urine Total Protein Vancomycin Trough Rheumatoid Factor Complement C4 Miscellaneous Test Crossmatch 10/15/16 10/15/16 10/15/16 05:06 12:26 17:48 WBC RBC Hgb Hct MCV MCH MCHC RDW Plt Count Lymph % (Auto) [place] % (Auto) Lymph # [place] # Baso # Seg Neutrophils % Seg Neuts % (Manual) Lymphocytes % (Manual) Monocytes % (Manual) Eosinophils % (Manual) Basophils % (Manual) Nucleated RBC % Seg Neutrophils # Seg Neutrophils # Man Lymphocytes # (Manual) Monocytes # (Manual) Eosinophils # (Manual) PT INR Fibrinogen dRVVT Confirm Interp Factor V Activity POC ABG pH POC ABG pCO2 POC ABG pO2 Sodium Potassium Chloride Carbon Dioxide BUN Creatinine Glucose POC Glucose 151 H 149 H 153 H Lactic Acid Calcium Phosphorus Magnesium Direct Bilirubin ALT Alkaline Phosphatase Troponin T C-Reactive Protein Total Protein Albumin Triglycerides Cholesterol LDL Cholesterol Direct HDL Cholesterol Urine WBC (Auto) Urine Creatinine Urine Total Protein Vancomycin Trough Rheumatoid Factor Complement C4 Miscellaneous Test Crossmatch 10/15/16 10/15/16 10/16/16 Unknown Unknown 00:02 WBC 23.4 H RBC 2.78 L Hgb 8.5 L Hct 25.7 L MCV MCH MCHC RDW 18.7 H Plt Count Lymph % (Auto) [place] % (Auto) Lymph # [place] # Baso # Seg Neutrophils % Seg Neuts % (Manual) Lymphocytes % (Manual) Monocytes % (Manual) Eosinophils % (Manual) Basophils % (Manual) Nucleated RBC % Seg Neutrophils # Seg Neutrophils # Man Lymphocytes # (Manual) Monocytes # (Manual) Eosinophils # (Manual) PT INR Fibrinogen dRVVT Confirm Interp Factor V Activity POC ABG pH POC ABG pCO2 POC ABG pO2 Sodium Potassium Chloride Carbon Dioxide BUN 73 H Creatinine 2.3 H Glucose 120 H POC Glucose 137 H Lactic Acid Calcium Phosphorus Magnesium Direct Bilirubin ALT Alkaline Phosphatase Troponin T C-Reactive Protein Total Protein Albumin Triglycerides Cholesterol LDL Cholesterol Direct HDL Cholesterol Urine WBC (Auto) Urine Creatinine Urine Total Protein Vancomycin Trough Rheumatoid Factor Complement C4 Miscellaneous Test Crossmatch 08/10/16/16 10/16/16 05:44 06:25 06:25 WBC 22.5 H RBC 2.76 L Hgb 8.3 L Hct 25.2 L MCV MCH MCHC RDW 18.3 H Plt Count Lymph % (Auto) [place] % (Auto) Lymph # [place] # Baso # Seg Neutrophils % Seg Neuts % (Manual) Lymphocytes % (Manual) Monocytes % (Manual) Eosinophils % (Manual) Basophils % (Manual) Nucleated RBC % Seg Neutrophils # Seg Neutrophils # Man Lymphocytes # (Manual) Monocytes # (Manual) Eosinophils # (Manual) PT INR Fibrinogen dRVVT Confirm Interp Factor V Activity POC ABG pH POC ABG pCO2 POC ABG pO2 Sodium Potassium Chloride Carbon Dioxide BUN 92 H Creatinine 3.0 H Glucose 138 H POC Glucose 110 H Lactic Acid Calcium Phosphorus Magnesium Direct Bilirubin ALT Alkaline Phosphatase Troponin T C-Reactive Protein Total Protein Albumin Triglycerides Cholesterol LDL Cholesterol Direct HDL Cholesterol Urine WBC (Auto) Urine Creatinine Urine Total Protein Vancomycin Trough Rheumatoid Factor Complement C4 Miscellaneous Test Crossmatch 10/16/16 10/16/16 10/16/16 11:27 11:48 17:36 WBC RBC Hgb Hct MCV MCH MCHC RDW Plt Count Lymph % (Auto) [place] % (Auto) Lymph # [place] # Baso # Seg Neutrophils % Seg Neuts % (Manual) Lymphocytes % (Manual) Monocytes % (Manual) Eosinophils % (Manual) Basophils % (Manual) Nucleated RBC % Seg Neutrophils # Seg Neutrophils # Man Lymphocytes # (Manual) Monocytes # (Manual) Eosinophils # (Manual) PT INR Fibrinogen dRVVT Confirm Interp Factor V Activity POC ABG pH 7.582 H POC ABG pCO2 27.4 L POC ABG pO2 110 H Sodium Potassium Chloride Carbon Dioxide BUN Creatinine Glucose POC Glucose 121 H 133 H Lactic Acid Calcium Phosphorus Magnesium Direct Bilirubin ALT Alkaline Phosphatase Troponin T C-Reactive Protein Total Protein Albumin Triglycerides Cholesterol LDL Cholesterol Direct HDL Cholesterol Urine WBC (Auto) Urine Creatinine Urine Total Protein Vancomycin Trough Rheumatoid Factor Complement C4 Miscellaneous Test Crossmatch 10/16/16 10/17/16 10/17/16 20:48 04:24 04:24 WBC 21.4 H RBC 2.72 L Hgb 8.0 L Hct 25.2 L MCV MCH MCHC RDW 18.0 H Plt Count Lymph % (Auto) [place] % (Auto) Lymph # [place] # Baso # Seg Neutrophils % Seg Neuts % (Manual) Lymphocytes % (Manual) Monocytes % (Manual) Eosinophils % (Manual) Basophils % (Manual) Nucleated RBC % Seg Neutrophils # Seg Neutrophils # Man Lymphocytes # (Manual) Monocytes # (Manual) Eosinophils # (Manual) PT INR Fibrinogen dRVVT Confirm Interp Factor V Activity POC ABG pH 7.561 H POC ABG pCO2 24.4 L POC ABG pO2 77 L Sodium 148 H Potassium Chloride Carbon Dioxide BUN 104 H Creatinine 3.0 H Glucose 149 H POC Glucose Lactic Acid Calcium Phosphorus Magnesium Direct Bilirubin ALT Alkaline Phosphatase 138 H Troponin T C-Reactive Protein Total Protein 6.2 L Albumin 1.5 L Triglycerides Cholesterol LDL Cholesterol Direct HDL Cholesterol Urine WBC (Auto) Urine Creatinine Urine Total Protein Vancomycin Trough Rheumatoid Factor Complement C4 Miscellaneous Test Crossmatch 10/17/16 10/17/16 10/17/16 06:02 12:17 17:14 WBC RBC Hgb Hct MCV MCH MCHC RDW Plt Count Lymph % (Auto) [place] % (Auto) Lymph # [place] # Baso # Seg Neutrophils % Seg Neuts % (Manual) Lymphocytes % (Manual) Monocytes % (Manual) Eosinophils % (Manual) Basophils % (Manual) Nucleated RBC % Seg Neutrophils # Seg Neutrophils # Man Lymphocytes # (Manual) Monocytes # (Manual) Eosinophils # (Manual) PT INR Fibrinogen dRVVT Confirm Interp Factor V Activity POC ABG pH POC ABG pCO2 POC ABG pO2 Sodium Potassium Chloride Carbon Dioxide BUN Creatinine Glucose POC Glucose 170 H 167 H 126 H Lactic Acid Calcium Phosphorus Magnesium Direct Bilirubin ALT Alkaline Phosphatase Troponin T C-Reactive Protein Total Protein Albumin Triglycerides Cholesterol LDL Cholesterol Direct HDL Cholesterol Urine WBC (Auto) Urine Creatinine Urine Total Protein Vancomycin Trough Rheumatoid Factor Complement C4 Miscellaneous Test Crossmatch 10/17/16 10/18/16 10/18/16 23:17 04:00 04:00 WBC 20.7 H RBC 2.47 L Hgb 7.4 L Hct 22.9 L MCV MCH MCHC RDW 17.5 H Plt Count Lymph % (Auto) [place] % (Auto) Lymph # [place] # Baso # Seg Neutrophils % Seg Neuts % (Manual) Lymphocytes % (Manual) Monocytes % (Manual) Eosinophils % (Manual) Basophils % (Manual) Nucleated RBC % Seg Neutrophils # Seg Neutrophils # Man Lymphocytes # (Manual) Monocytes # (Manual) Eosinophils # (Manual) PT INR Fibrinogen dRVVT Confirm Interp Factor V Activity POC ABG pH POC ABG pCO2 POC ABG pO2 Sodium 149 H Potassium Chloride 107.9 H Carbon Dioxide 20 L BUN 117 H Creatinine 3.2 H Glucose 119 H POC Glucose 121 H Lactic Acid Calcium Phosphorus Magnesium Direct Bilirubin ALT Alkaline Phosphatase Troponin T C-Reactive Protein Total Protein Albumin Triglycerides Cholesterol LDL Cholesterol Direct HDL Cholesterol Urine WBC (Auto) Urine Creatinine Urine Total Protein Vancomycin Trough Rheumatoid Factor Complement C4 Miscellaneous Test Crossmatch 10/18/16 10/18/16 10/18/16 05:23 10:46 17:30 WBC RBC Hgb Hct MCV MCH MCHC RDW Plt Count Lymph % (Auto) [place] % (Auto) Lymph # [place] # Baso # Seg Neutrophils % Seg Neuts % (Manual) Lymphocytes % (Manual) Monocytes % (Manual) Eosinophils % (Manual) Basophils % (Manual) Nucleated RBC % Seg Neutrophils # Seg Neutrophils # Man Lymphocytes # (Manual) Monocytes # (Manual) Eosinophils # (Manual) PT INR Fibrinogen dRVVT Confirm Interp Factor V Activity POC ABG pH POC ABG pCO2 POC ABG pO2 Sodium Potassium Chloride Carbon Dioxide BUN Creatinine Glucose POC Glucose 119 H 155 H 124 H Lactic Acid Calcium Phosphorus Magnesium Direct Bilirubin ALT Alkaline Phosphatase Troponin T C-Reactive Protein Total Protein Albumin Triglycerides Cholesterol LDL Cholesterol Direct HDL Cholesterol Urine WBC (Auto) Urine Creatinine Urine Total Protein Vancomycin Trough Rheumatoid Factor Complement C4 Miscellaneous Test Crossmatch 10/19/16 10/19/16 10/19/16 04:00 04:00 05:25 WBC 17.4 H RBC 2.54 L Hgb 7.7 L Hct 23.6 L MCV MCH MCHC RDW 17.3 H Plt Count Lymph % (Auto) [place] % (Auto) Lymph # [place] # Baso # Seg Neutrophils % Seg Neuts % (Manual) Lymphocytes % (Manual) Monocytes % (Manual) Eosinophils % (Manual) Basophils % (Manual) Nucleated RBC % Seg Neutrophils # Seg Neutrophils # Man Lymphocytes # (Manual) Monocytes # (Manual) Eosinophils # (Manual) PT INR Fibrinogen dRVVT Confirm Interp Factor V Activity POC ABG pH POC ABG pCO2 POC ABG pO2 Sodium Potassium Chloride Carbon Dioxide BUN 72 H Creatinine 2.1 H Glucose 116 H POC Glucose 119 H Lactic Acid Calcium Phosphorus Magnesium Direct Bilirubin ALT Alkaline Phosphatase Troponin T C-Reactive Protein Total Protein Albumin Triglycerides Cholesterol LDL Cholesterol Direct HDL Cholesterol Urine WBC (Auto) Urine Creatinine Urine Total Protein Vancomycin Trough Rheumatoid Factor Complement C4 Miscellaneous Test Crossmatch 10/19/16 10/19/16 10/20/16 11:46 23:59 06:00 WBC RBC Hgb Hct MCV MCH MCHC RDW Plt Count Lymph % (Auto) [place] % (Auto) Lymph # [place] # Baso # Seg Neutrophils % Seg Neuts % (Manual) Lymphocytes % (Manual) Monocytes % (Manual) Eosinophils % (Manual) Basophils % (Manual) Nucleated RBC % Seg Neutrophils # Seg Neutrophils # Man Lymphocytes # (Manual) Monocytes # (Manual) Eosinophils # (Manual) PT INR Fibrinogen dRVVT Confirm Interp Factor V Activity POC ABG pH POC ABG pCO2 POC ABG pO2 Sodium Potassium Chloride Carbon Dioxide 17 L BUN 94 H Creatinine 2.7 H Glucose POC Glucose 116 H 117 H Lactic Acid Calcium Phosphorus Magnesium Direct Bilirubin ALT Alkaline Phosphatase Troponin T C-Reactive Protein Total Protein Albumin Triglycerides Cholesterol LDL Cholesterol Direct HDL Cholesterol Urine WBC (Auto) Urine Creatinine Urine Total Protein Vancomycin Trough Rheumatoid Factor Complement C4 Miscellaneous Test Crossmatch 10/20/16 10/20/16 10/20/16 06:00 11:49 16:00 WBC 19.7 H RBC 2.51 L Hgb 7.7 L Hct 23.5 L MCV MCH MCHC RDW 17.5 H Plt Count Lymph % (Auto) [place] % (Auto) Lymph # [place] # Baso # Seg Neutrophils % Seg Neuts % (Manual) Lymphocytes % (Manual) Monocytes % (Manual) Eosinophils % (Manual) Basophils % (Manual) Nucleated RBC % Seg Neutrophils # Seg Neutrophils # Man Lymphocytes # (Manual) Monocytes # (Manual) Eosinophils # (Manual) PT INR Fibrinogen dRVVT Confirm Interp Factor V Activity POC ABG pH POC ABG pCO2 POC ABG pO2 Sodium Potassium Chloride Carbon Dioxide BUN Creatinine Glucose POC Glucose 117 H Lactic Acid Calcium Phosphorus Magnesium Direct Bilirubin ALT Alkaline Phosphatase Troponin T C-Reactive Protein Total Protein Albumin Triglycerides Cholesterol LDL Cholesterol Direct HDL Cholesterol Urine WBC (Auto) Urine Creatinine Urine Total Protein Vancomycin Trough Rheumatoid Factor Complement C4 Miscellaneous Test Flexitest 1 H Crossmatch 10/20/16 10/20/16 10/21/16 18:36 23:39 04:00 WBC RBC Hgb Hct MCV MCH MCHC RDW Plt Count Lymph % (Auto) [place] % (Auto) Lymph # [place] # Baso # Seg Neutrophils % Seg Neuts % (Manual) Lymphocytes % (Manual) Monocytes % (Manual) Eosinophils % (Manual) Basophils % (Manual) Nucleated RBC % Seg Neutrophils # Seg Neutrophils # Man Lymphocytes # (Manual) Monocytes # (Manual) Eosinophils # (Manual) PT INR Fibrinogen dRVVT Confirm Interp Factor V Activity POC ABG pH POC ABG pCO2 POC ABG pO2 Sodium Potassium 5.4 H D Chloride Carbon Dioxide 15 L BUN 110 H Creatinine 3.0 H Glucose POC Glucose 127 H 114 H Lactic Acid Calcium Phosphorus Magnesium Direct Bilirubin ALT Alkaline Phosphatase Troponin T C-Reactive Protein Total Protein Albumin Triglycerides Cholesterol LDL Cholesterol Direct HDL Cholesterol Urine WBC (Auto) Urine Creatinine Urine Total Protein Vancomycin Trough Rheumatoid Factor Complement C4 Miscellaneous Test Crossmatch 10/21/16 10/21/16 10/22/16 05:54 23:46 05:18 WBC RBC Hgb Hct MCV MCH MCHC RDW Plt Count Lymph % (Auto) [place] % (Auto) Lymph # [place] # Baso # Seg Neutrophils % Seg Neuts % (Manual) Lymphocytes % (Manual) Monocytes % (Manual) Eosinophils % (Manual) Basophils % (Manual) Nucleated RBC % Seg Neutrophils # Seg Neutrophils # Man Lymphocytes # (Manual) Monocytes # (Manual) Eosinophils # (Manual) PT INR Fibrinogen dRVVT Confirm Interp Factor V Activity POC ABG pH POC ABG pCO2 POC ABG pO2 Sodium Potassium Chloride Carbon Dioxide BUN Creatinine Glucose POC Glucose 119 H 108 H 109 H Lactic Acid Calcium Phosphorus Magnesium Direct Bilirubin ALT Alkaline Phosphatase Troponin T C-Reactive Protein Total Protein Albumin Triglycerides Cholesterol LDL Cholesterol Direct HDL Cholesterol Urine WBC (Auto) Urine Creatinine Urine Total Protein Vancomycin Trough Rheumatoid Factor Complement C4 Miscellaneous Test Crossmatch 10/22/16 10/22/16 10/22/16 06:40 06:40 06:40 WBC 14.0 H RBC 2.03 L Hgb 7.0 L Hct 20.5 L MCV 98 H MCH 34 H MCHC 35 H RDW 17.8 H Plt Count Lymph % (Auto) [place] % (Auto) 9.9 H Lymph # [place] # 1.4 H Baso # 0.2 H Seg Neutrophils % 72.0 H Seg Neuts % (Manual) Lymphocytes % (Manual) Monocytes % (Manual) Eosinophils % (Manual) Basophils % (Manual) Nucleated RBC % Seg Neutrophils # 10.0 H Seg Neutrophils # Man Lymphocytes # (Manual) Monocytes # (Manual) Eosinophils # (Manual) PT INR Fibrinogen dRVVT Confirm Interp Factor V Activity POC ABG pH POC ABG pCO2 POC ABG pO2 Sodium 130 L D Potassium Chloride 92.4 L Carbon Dioxide 20 L BUN 50 H Creatinine 1.6 H Glucose 589 H* POC Glucose Lactic Acid Calcium 7.8 L D Phosphorus Magnesium 1.60 L Direct Bilirubin ALT Alkaline Phosphatase Troponin T C-Reactive Protein Total Protein Albumin Triglycerides Cholesterol LDL Cholesterol Direct HDL Cholesterol Urine WBC (Auto) Urine Creatinine Urine Total Protein Vancomycin Trough Rheumatoid Factor Complement C4 Miscellaneous Test Crossmatch 10/22/16 10/22/16 10/22/16 11:39 16:44 23:36 WBC RBC Hgb Hct MCV MCH MCHC RDW Plt Count Lymph % (Auto) [place] % (Auto) Lymph # [place] # Baso # Seg Neutrophils % Seg Neuts % (Manual) Lymphocytes % (Manual) Monocytes % (Manual) Eosinophils % (Manual) Basophils % (Manual) Nucleated RBC % Seg Neutrophils # Seg Neutrophils # Man Lymphocytes # (Manual) Monocytes # (Manual) Eosinophils # (Manual) PT INR Fibrinogen dRVVT Confirm Interp Factor V Activity POC ABG pH POC ABG pCO2 POC ABG pO2 Sodium Potassium Chloride Carbon Dioxide BUN Creatinine Glucose POC Glucose 142 H 163 H 123 H Lactic Acid Calcium Phosphorus Magnesium Direct Bilirubin ALT Alkaline Phosphatase Troponin T C-Reactive Protein Total Protein Albumin Triglycerides Cholesterol LDL Cholesterol Direct HDL Cholesterol Urine WBC (Auto) Urine Creatinine Urine Total Protein Vancomycin Trough Rheumatoid Factor Complement C4 Miscellaneous Test Crossmatch 10/23/16 10/23/16 10/23/16 04:58 06:00 12:12 WBC RBC Hgb Hct MCV MCH MCHC RDW Plt Count Lymph % (Auto) [place] % (Auto) Lymph # [place] # Baso # Seg Neutrophils % Seg Neuts % (Manual) Lymphocytes % (Manual) Monocytes % (Manual) Eosinophils % (Manual) Basophils % (Manual) Nucleated RBC % Seg Neutrophils # Seg Neutrophils # Man Lymphocytes # (Manual) Monocytes # (Manual) Eosinophils # (Manual) PT INR Fibrinogen dRVVT Confirm Interp Factor V Activity POC ABG pH POC ABG pCO2 POC ABG pO2 Sodium 133 L Potassium 3.5 L Chloride 96.1 L Carbon Dioxide 18 L BUN 76 H Creatinine 2.1 H Glucose POC Glucose 133 H 138 H Lactic Acid Calcium 8.3 L Phosphorus Magnesium Direct Bilirubin ALT Alkaline Phosphatase Troponin T C-Reactive Protein Total Protein Albumin Triglycerides Cholesterol LDL Cholesterol Direct HDL Cholesterol Urine WBC (Auto) Urine Creatinine Urine Total Protein Vancomycin Trough Rheumatoid Factor Complement C4 Miscellaneous Test Crossmatch 10/23/16 10/23/16 10/24/16 16:53 23:37 04:00 WBC RBC Hgb Hct MCV MCH MCHC RDW Plt Count Lymph % (Auto) [place] % (Auto) Lymph # [place] # Baso # Seg Neutrophils % Seg Neuts % (Manual) Lymphocytes % (Manual) Monocytes % (Manual) Eosinophils % (Manual) Basophils % (Manual) Nucleated RBC % Seg Neutrophils # Seg Neutrophils # Man Lymphocytes # (Manual) Monocytes # (Manual) Eosinophils # (Manual) PT INR Fibrinogen dRVVT Confirm Interp Factor V Activity POC ABG pH POC ABG pCO2 POC ABG pO2 Sodium 131 L Potassium Chloride 94.5 L Carbon Dioxide 19 L BUN 97 H Creatinine 2.6 H Glucose 110 H POC Glucose 125 H 123 H Lactic Acid Calcium 8.3 L Phosphorus Magnesium Direct Bilirubin ALT Alkaline Phosphatase Troponin T C-Reactive Protein Total Protein Albumin Triglycerides Cholesterol LDL Cholesterol Direct HDL Cholesterol Urine WBC (Auto) Urine Creatinine Urine Total Protein Vancomycin Trough Rheumatoid Factor Complement C4 Miscellaneous Test Crossmatch 10/24/16 10/24/16 10/24/16 07:49 11:39 17:52 WBC RBC Hgb 6.0 L Hct 19.7 L* MCV MCH MCHC RDW Plt Count Lymph % (Auto) [place] % (Auto) Lymph # [place] # [place] # Seg Neutrophils % Seg Neuts % (Manual) Lymphocytes % (Manual) Monocytes % (Manual) Eosinophils % (Manual) Basophils % (Manual) Nucleated RBC % Seg Neutrophils # Seg Neutrophils # Man Lymphocytes # (Manual) Monocytes # (Manual) Eosinophils # (Manual) PT INR Fibrinogen dRVVT Confirm Interp Factor V Activity POC ABG pH POC ABG pCO2 POC ABG pO2 Sodium Potassium Chloride Carbon Dioxide BUN Creatinine Glucose POC Glucose 106 H 158 H Lactic Acid Calcium Phosphorus Magnesium Direct Bilirubin ALT Alkaline Phosphatase Troponin T C-Reactive Protein Total Protein Albumin Triglycerides Cholesterol LDL Cholesterol Direct HDL Cholesterol Urine WBC (Auto) Urine Creatinine Urine Total Protein Vancomycin Trough Rheumatoid Factor Complement C4 Miscellaneous Test Crossmatch 10/24/16 10/24/16 10/24/16 20:00 22:27 Unknown WBC RBC Hgb 9.4 L D Hct 27.5 L D MCV MCH MCHC RDW Plt Count Lymph % (Auto) [place] % (Auto) Lymph # [place] # Baso # Seg Neutrophils % Seg Neuts % (Manual) Lymphocytes % (Manual) Monocytes % (Manual) Eosinophils % (Manual) Basophils % (Manual) Nucleated RBC % Seg Neutrophils # Seg Neutrophils # Man Lymphocytes # (Manual) Monocytes # (Manual) Eosinophils # (Manual) PT INR Fibrinogen dRVVT Confirm Interp Factor V Activity POC ABG pH POC ABG pCO2 POC ABG pO2 Sodium Potassium Chloride Carbon Dioxide BUN Creatinine Glucose POC Glucose 125 H Lactic Acid Calcium Phosphorus Magnesium Direct Bilirubin ALT Alkaline Phosphatase Troponin T C-Reactive Protein Total Protein Albumin Triglycerides Cholesterol LDL Cholesterol Direct HDL Cholesterol Urine WBC (Auto) Urine Creatinine Urine Total Protein Vancomycin Trough Rheumatoid Factor Complement C4 Miscellaneous Test Crossmatch See Detail 10/25/16 10/25/16 10/25/16 04:00 04:00 04:00 WBC 14.2 H RBC 2.98 L Hgb 9.0 L Hct 26.2 L MCV MCH MCHC RDW 16.6 H Plt Count Lymph % (Auto) [place] % (Auto) 10.7 H Lymph # [place] # 1.5 H Baso # Seg Neutrophils % 73.6 H Seg Neuts % (Manual) Lymphocytes % (Manual) Monocytes % (Manual) Eosinophils % (Manual) Basophils % (Manual) Nucleated RBC % Seg Neutrophils # 10.5 H Seg Neutrophils # Man Lymphocytes # (Manual) Monocytes # (Manual) Eosinophils # (Manual) PT INR Fibrinogen dRVVT Confirm Interp Factor V Activity POC ABG pH POC ABG pCO2 POC ABG pO2 Sodium 132 L Potassium Chloride 94.7 L Carbon Dioxide BUN 51 H Creatinine 1.6 H Glucose 130 H POC Glucose Lactic Acid Calcium 8.3 L Phosphorus 1.60 L D Magnesium Direct Bilirubin ALT Alkaline Phosphatase Troponin T C-Reactive Protein Total Protein Albumin Triglycerides Cholesterol LDL Cholesterol Direct HDL Cholesterol Urine WBC (Auto) Urine Creatinine Urine Total Protein Vancomycin Trough Rheumatoid Factor Complement C4 Miscellaneous Test Crossmatch 10/25/16 10/25/16 10/25/16 04:32 11:48 17:22 WBC RBC Hgb Hct MCV MCH MCHC RDW Plt Count Lymph % (Auto) [place] % (Auto) Lymph # [place] # Baso # Seg Neutrophils % Seg Neuts % (Manual) Lymphocytes % (Manual) Monocytes % (Manual) Eosinophils % (Manual) Basophils % (Manual) Nucleated RBC % Seg Neutrophils # Seg Neutrophils # Man Lymphocytes # (Manual) Monocytes # (Manual) Eosinophils # (Manual) PT INR Fibrinogen dRVVT Confirm Interp Factor V Activity POC ABG pH POC ABG pCO2 POC ABG pO2 Sodium Potassium Chloride Carbon Dioxide BUN Creatinine Glucose POC Glucose 124 H 171 H 120 H Lactic Acid Calcium Phosphorus Magnesium Direct Bilirubin ALT Alkaline Phosphatase Troponin T C-Reactive Protein Total Protein Albumin Triglycerides Cholesterol LDL Cholesterol Direct HDL Cholesterol Urine WBC (Auto) Urine Creatinine Urine Total Protein Vancomycin Trough Rheumatoid Factor Complement C4 Miscellaneous Test Crossmatch 10/26/16 10/26/16 10/26/16 04:54 07:06 07:06 WBC 16.9 H RBC 3.06 L Hgb 9.1 L Hct 26.9 L MCV MCH MCHC RDW 16.9 H Plt Count Lymph % (Auto) [place] % (Auto) Lymph # [place] # Baso # Seg Neutrophils % Seg Neuts % (Manual) 71.0 H Lymphocytes % (Manual) 5.0 L Monocytes % (Manual) 12.0 H Eosinophils % (Manual) Basophils % (Manual) Nucleated RBC % Seg Neutrophils # Seg Neutrophils # Man 12.0 H Lymphocytes # (Manual) 0.8 L Monocytes # (Manual) 2.0 H Eosinophils # (Manual) PT INR Fibrinogen dRVVT Confirm Interp Factor V Activity POC ABG pH POC ABG pCO2 POC ABG pO2 Sodium 135 L Potassium Chloride 97.1 L Carbon Dioxide BUN 73 H Creatinine 2.2 H Glucose 117 H POC Glucose 123 H Lactic Acid Calcium Phosphorus 1.70 L Magnesium Direct Bilirubin ALT Alkaline Phosphatase Troponin T C-Reactive Protein Total Protein Albumin Triglycerides Cholesterol LDL Cholesterol Direct HDL Cholesterol Urine WBC (Auto) Urine Creatinine Urine Total Protein Vancomycin Trough Rheumatoid Factor Complement C4 Miscellaneous Test Crossmatch 10/26/16 10/26/16 10/26/16 12:12 17:29 23:42 WBC RBC Hgb Hct MCV MCH MCHC RDW Plt Count Lymph % (Auto) [place] % (Auto) Lymph # [place] # Baso # Seg Neutrophils % Seg Neuts % (Manual) Lymphocytes % (Manual) Monocytes % (Manual) Eosinophils % (Manual) Basophils % (Manual) Nucleated RBC % Seg Neutrophils # Seg Neutrophils # Man Lymphocytes # (Manual) Monocytes # (Manual) Eosinophils # (Manual) PT INR Fibrinogen dRVVT Confirm Interp Factor V Activity POC ABG pH POC ABG pCO2 POC ABG pO2 Sodium Potassium Chloride Carbon Dioxide BUN Creatinine Glucose POC Glucose 126 H 161 H 118 H Lactic Acid Calcium Phosphorus Magnesium Direct Bilirubin ALT Alkaline Phosphatase Troponin T C-Reactive Protein Total Protein Albumin Triglycerides Cholesterol LDL Cholesterol Direct HDL Cholesterol Urine WBC (Auto) Urine Creatinine Urine Total Protein Vancomycin Trough Rheumatoid Factor Complement C4 Miscellaneous Test Crossmatch 10/27/16 10/27/16 10/27/16 05:03 06:30 06:30 WBC 13.9 H RBC 3.09 L Hgb 9.2 L Hct 27.5 L MCV MCH MCHC RDW 17.0 H Plt Count Lymph % (Auto) [place] % (Auto) Lymph # [place] # Baso # Seg Neutrophils % Seg Neuts % (Manual) 78.0 H Lymphocytes % (Manual) Monocytes % (Manual) Eosinophils % (Manual) Basophils % (Manual) Nucleated RBC % 2.0 H Seg Neutrophils # Seg Neutrophils # Man 10.8 H Lymphocytes # (Manual) Monocytes # (Manual) 1.0 H Eosinophils # (Manual) PT INR Fibrinogen dRVVT Confirm Interp Factor V Activity POC ABG pH POC ABG pCO2 POC ABG pO2 Sodium Potassium Chloride Carbon Dioxide BUN 40 H Creatinine 1.5 H Glucose 135 H POC Glucose 107 H Lactic Acid Calcium 8.3 L Phosphorus 1.30 L D Magnesium Direct Bilirubin ALT Alkaline Phosphatase Troponin T C-Reactive Protein Total Protein Albumin Triglycerides Cholesterol LDL Cholesterol Direct HDL Cholesterol Urine WBC (Auto) Urine Creatinine Urine Total Protein Vancomycin Trough Rheumatoid Factor Complement C4 Miscellaneous Test Crossmatch 10/27/16 10/27/16 10/27/16 13:27 18:07 23:40 WBC RBC Hgb Hct MCV MCH MCHC RDW Plt Count Lymph % (Auto) [place] % (Auto) Lymph # [place] # Baso # Seg Neutrophils % Seg Neuts % (Manual) Lymphocytes % (Manual) Monocytes % (Manual) Eosinophils % (Manual) Basophils % (Manual) Nucleated RBC % Seg Neutrophils # Seg Neutrophils # Man Lymphocytes # (Manual) Monocytes # (Manual) Eosinophils # (Manual) PT INR Fibrinogen dRVVT Confirm Interp Factor V Activity POC ABG pH POC ABG pCO2 POC ABG pO2 Sodium Potassium Chloride Carbon Dioxide BUN Creatinine Glucose POC Glucose 117 H 121 H 118 H Lactic Acid Calcium Phosphorus Magnesium Direct Bilirubin ALT Alkaline Phosphatase Troponin T C-Reactive Protein Total Protein Albumin Triglycerides Cholesterol LDL Cholesterol Direct HDL Cholesterol Urine WBC (Auto) Urine Creatinine Urine Total Protein Vancomycin Trough Rheumatoid Factor Complement C4 Miscellaneous Test Crossmatch 10/28/16 10/28/16 10/28/16 05:48 06:45 06:45 WBC 14.7 H RBC 3.05 L Hgb 9.0 L Hct 26.9 L MCV MCH MCHC RDW 16.8 H Plt Count Lymph % (Auto) 8.2 L [place] % (Auto) 8.4 H Lymph # [place] # 1.2 H Baso # Seg Neutrophils % 81.9 H Seg Neuts % (Manual) Lymphocytes % (Manual) Monocytes % (Manual) Eosinophils % (Manual) Basophils % (Manual) Nucleated RBC % Seg Neutrophils # 12.1 H Seg Neutrophils # Man Lymphocytes # (Manual) Monocytes # (Manual) Eosinophils # (Manual) PT INR Fibrinogen dRVVT Confirm Interp Factor V Activity POC ABG pH POC ABG pCO2 POC ABG pO2 Sodium Potassium Chloride Carbon Dioxide BUN 60 H Creatinine 1.9 H Glucose 120 H POC Glucose 114 H Lactic Acid Calcium Phosphorus Magnesium Direct Bilirubin ALT Alkaline Phosphatase Troponin T C-Reactive Protein Total Protein Albumin Triglycerides Cholesterol LDL Cholesterol Direct HDL Cholesterol Urine WBC (Auto) Urine Creatinine Urine Total Protein Vancomycin Trough Rheumatoid Factor Complement C4 Miscellaneous Test Crossmatch 10/28/16 10/28/16 10/29/16 17:08 23:50 05:10 WBC RBC Hgb Hct MCV MCH MCHC RDW Plt Count Lymph % (Auto) [place] % (Auto) Lymph # [place] # Baso # Seg Neutrophils % Seg Neuts % (Manual) Lymphocytes % (Manual) Monocytes % (Manual) Eosinophils % (Manual) Basophils % (Manual) Nucleated RBC % Seg Neutrophils # Seg Neutrophils # Man Lymphocytes # (Manual) Monocytes # (Manual) Eosinophils # (Manual) PT INR Fibrinogen dRVVT Confirm Interp Factor V Activity POC ABG pH POC ABG pCO2 POC ABG pO2 Sodium Potassium Chloride Carbon Dioxide BUN Creatinine Glucose POC Glucose 109 H 110 H 124 H Lactic Acid Calcium Phosphorus Magnesium Direct Bilirubin ALT Alkaline Phosphatase Troponin T C-Reactive Protein Total Protein Albumin Triglycerides Cholesterol LDL Cholesterol Direct HDL Cholesterol Urine WBC (Auto) Urine Creatinine Urine Total Protein Vancomycin Trough Rheumatoid Factor Complement C4 Miscellaneous Test Crossmatch 10/29/16 10/29/16 10/29/16 07:45 07:45 12:19 WBC 14.7 H RBC 3.15 L Hgb 9.3 L Hct 28.9 L MCV MCH MCHC RDW 17.0 H Plt Count Lymph % (Auto) 11.9 L [place] % (Auto) 8.6 H Lymph # [place] # 1.3 H Baso # Seg Neutrophils % 78.1 H Seg Neuts % (Manual) Lymphocytes % (Manual) Monocytes % (Manual) Eosinophils % (Manual) Basophils % (Manual) Nucleated RBC % Seg Neutrophils # 11.4 H Seg Neutrophils # Man Lymphocytes # (Manual) Monocytes # (Manual) Eosinophils # (Manual) PT INR Fibrinogen dRVVT Confirm Interp Factor V Activity POC ABG pH POC ABG pCO2 POC ABG pO2 Sodium Potassium 5.1 H Chloride Carbon Dioxide 19 L BUN 78 H Creatinine 2.2 H Glucose 116 H POC Glucose 118 H Lactic Acid Calcium Phosphorus Magnesium Direct Bilirubin ALT Alkaline Phosphatase Troponin T C-Reactive Protein Total Protein Albumin Triglycerides Cholesterol LDL Cholesterol Direct HDL Cholesterol Urine WBC (Auto) Urine Creatinine Urine Total Protein Vancomycin Trough Rheumatoid Factor Complement C4 Miscellaneous Test Crossmatch 10/29/16 10/30/16 10/30/16 17:49 01:52 03:28 WBC RBC Hgb Hct MCV MCH MCHC RDW Plt Count Lymph % (Auto) [place] % (Auto) Lymph # [place] # Baso # Seg Neutrophils % Seg Neuts % (Manual) Lymphocytes % (Manual) Monocytes % (Manual) Eosinophils % (Manual) Basophils % (Manual) Nucleated RBC % Seg Neutrophils # Seg Neutrophils # Man Lymphocytes # (Manual) Monocytes # (Manual) Eosinophils # (Manual) PT INR Fibrinogen dRVVT Confirm Interp Factor V Activity POC ABG pH POC ABG pCO2 POC ABG pO2 Sodium Potassium 5.4 H Chloride 97.5 L Carbon Dioxide 19 L BUN 90 H Creatinine 2.5 H Glucose POC Glucose 120 H 129 H Lactic Acid Calcium Phosphorus 5.20 H Magnesium Direct Bilirubin ALT Alkaline Phosphatase Troponin T C-Reactive Protein Total Protein Albumin Triglycerides Cholesterol LDL Cholesterol Direct HDL Cholesterol Urine WBC (Auto) Urine Creatinine Urine Total Protein Vancomycin Trough Rheumatoid Factor Complement C4 Miscellaneous Test Crossmatch 10/30/16 10/30/16 10/30/16 03:28 08:19 08:19 WBC 11.6 H 15.9 H RBC 2.75 L 2.82 L Hgb 7.9 L 8.3 L Hct 24.2 L 25.2 L MCV MCH MCHC RDW 16.7 H 17.2 H Plt Count Lymph % (Auto) [place] % (Auto) 9.8 H Lymph # [place] # 1.1 H Baso # Seg Neutrophils % 74.2 H Seg Neuts % (Manual) Lymphocytes % (Manual) Monocytes % (Manual) Eosinophils % (Manual) Basophils % (Manual) Nucleated RBC % Seg Neutrophils # 8.6 H Seg Neutrophils # Man Lymphocytes # (Manual) Monocytes # (Manual) Eosinophils # (Manual) PT INR Fibrinogen dRVVT Confirm Interp Factor V Activity POC ABG pH POC ABG pCO2 POC ABG pO2 Sodium Potassium 5.3 H Chloride 97.4 L Carbon Dioxide 19 L BUN 93 H Creatinine 2.6 H Glucose POC Glucose Lactic Acid Calcium Phosphorus Magnesium Direct Bilirubin ALT Alkaline Phosphatase Troponin T C-Reactive Protein Total Protein Albumin Triglycerides Cholesterol LDL Cholesterol Direct HDL Cholesterol Urine WBC (Auto) Urine Creatinine Urine Total Protein Vancomycin Trough Rheumatoid Factor Complement C4 Miscellaneous Test Crossmatch 10/30/16 10/30/16 10/31/16 17:11 23:56 00:40 WBC RBC Hgb Hct MCV MCH MCHC RDW Plt Count Lymph % (Auto) [place] % (Auto) Lymph # [place] # Baso # Seg Neutrophils % Seg Neuts % (Manual) Lymphocytes % (Manual) Monocytes % (Manual) Eosinophils % (Manual) Basophils % (Manual) Nucleated RBC % Seg Neutrophils # Seg Neutrophils # Man Lymphocytes # (Manual) Monocytes # (Manual) Eosinophils # (Manual) PT INR Fibrinogen dRVVT Confirm Interp Factor V Activity POC ABG pH POC ABG pCO2 POC ABG pO2 Sodium Potassium Chloride Carbon Dioxide BUN Creatinine Glucose POC Glucose 106 H 117 H 120 H Lactic Acid Calcium Phosphorus Magnesium Direct Bilirubin ALT Alkaline Phosphatase Troponin T C-Reactive Protein Total Protein Albumin Triglycerides Cholesterol LDL Cholesterol Direct HDL Cholesterol Urine WBC (Auto) Urine Creatinine Urine Total Protein Vancomycin Trough Rheumatoid Factor Complement C4 Miscellaneous Test Crossmatch 10/31/16 10/31/16 10/31/16 05:43 07:15 07:15 WBC 12.1 H RBC 2.63 L Hgb 7.7 L Hct 23.3 L MCV MCH MCHC RDW 16.7 H Plt Count Lymph % (Auto) 11.7 L [place] % (Auto) 7.7 H Lymph # [place] # 0.9 H Baso # Seg Neutrophils % 78.0 H Seg Neuts % (Manual) Lymphocytes % (Manual) Monocytes % (Manual) Eosinophils % (Manual) Basophils % (Manual) Nucleated RBC % Seg Neutrophils # 9.4 H Seg Neutrophils # Man Lymphocytes # (Manual) Monocytes # (Manual) Eosinophils # (Manual) PT INR Fibrinogen dRVVT Confirm Interp Factor V Activity POC ABG pH POC ABG pCO2 POC ABG pO2 Sodium Potassium Chloride 96.4 L Carbon Dioxide 21 L BUN 99 H Creatinine 2.6 H Glucose 144 H POC Glucose 125 H Lactic Acid Calcium Phosphorus 4.80 H Magnesium Direct Bilirubin ALT Alkaline Phosphatase Troponin T C-Reactive Protein Total Protein Albumin Triglycerides Cholesterol LDL Cholesterol Direct HDL Cholesterol Urine WBC (Auto) Urine Creatinine Urine Total Protein Vancomycin Trough Rheumatoid Factor Complement C4 Miscellaneous Test Crossmatch 10/31/16 10/31/16 11/01/16 11:46 18:34 00:20 WBC RBC Hgb Hct MCV MCH MCHC RDW Plt Count Lymph % (Auto) [place] % (Auto) Lymph # [place] # Baso # Seg Neutrophils % Seg Neuts % (Manual) Lymphocytes % (Manual) Monocytes % (Manual) Eosinophils % (Manual) Basophils % (Manual) Nucleated RBC % Seg Neutrophils # Seg Neutrophils # Man Lymphocytes # (Manual) Monocytes # (Manual) Eosinophils # (Manual) PT INR Fibrinogen dRVVT Confirm Interp Factor V Activity POC ABG pH POC ABG pCO2 POC ABG pO2 Sodium Potassium Chloride Carbon Dioxide BUN Creatinine Glucose POC Glucose 159 H 140 H 132 H Lactic Acid Calcium Phosphorus Magnesium Direct Bilirubin ALT Alkaline Phosphatase Troponin T C-Reactive Protein Total Protein Albumin Triglycerides Cholesterol LDL Cholesterol Direct HDL Cholesterol Urine WBC (Auto) Urine Creatinine Urine Total Protein Vancomycin Trough Rheumatoid Factor Complement C4 Miscellaneous Test Crossmatch 11/01/16 11/01/16 11/01/16 04:55 04:55 06:11 WBC 11.2 H RBC 2.68 L Hgb 7.5 L Hct 23.7 L MCV MCH MCHC RDW 16.1 H Plt Count Lymph % (Auto) [place] % (Auto) 9.8 H Lymph # [place] # 1.1 H Baso # Seg Neutrophils % 70.8 H Seg Neuts % (Manual) Lymphocytes % (Manual) Monocytes % (Manual) Eosinophils % (Manual) Basophils % (Manual) Nucleated RBC % Seg Neutrophils # 7.9 H Seg Neutrophils # Man Lymphocytes # (Manual) Monocytes # (Manual) Eosinophils # (Manual) PT INR Fibrinogen dRVVT Confirm Interp Factor V Activity POC ABG pH POC ABG pCO2 POC ABG pO2 Sodium Potassium 3.3 L D Chloride Carbon Dioxide BUN 61 H Creatinine 1.9 H Glucose 114 H POC Glucose 115 H Lactic Acid Calcium Phosphorus 1.80 L D Magnesium Direct Bilirubin ALT Alkaline Phosphatase Troponin T C-Reactive Protein Total Protein Albumin Triglycerides Cholesterol LDL Cholesterol Direct HDL Cholesterol Urine WBC (Auto) Urine Creatinine Urine Total Protein Vancomycin Trough Rheumatoid Factor Complement C4 Miscellaneous Test Crossmatch 11/01/16 11/01/16 11/01/16 12:29 18:23 23:58 WBC RBC Hgb Hct MCV MCH MCHC RDW Plt Count Lymph % (Auto) [place] % (Auto) Lymph # [place] # Baso # Seg Neutrophils % Seg Neuts % (Manual) Lymphocytes % (Manual) Monocytes % (Manual) Eosinophils % (Manual) Basophils % (Manual) Nucleated RBC % Seg Neutrophils # Seg Neutrophils # Man Lymphocytes # (Manual) Monocytes # (Manual) Eosinophils # (Manual) PT INR Fibrinogen dRVVT Confirm Interp Factor V Activity POC ABG pH POC ABG pCO2 POC ABG pO2 Sodium Potassium Chloride Carbon Dioxide BUN Creatinine Glucose POC Glucose 142 H 143 H 128 H Lactic Acid Calcium Phosphorus Magnesium Direct Bilirubin ALT Alkaline Phosphatase Troponin T C-Reactive Protein Total Protein Albumin Triglycerides Cholesterol LDL Cholesterol Direct HDL Cholesterol Urine WBC (Auto) Urine Creatinine Urine Total Protein Vancomycin Trough Rheumatoid Factor Complement C4 Miscellaneous Test Crossmatch 11/02/16 11/02/16 11/02/16 04:16 05:29 11:58 WBC RBC Hgb Hct MCV MCH MCHC RDW Plt Count Lymph % (Auto) [place] % (Auto) Lymph # [place] # Baso # Seg Neutrophils % Seg Neuts % (Manual) Lymphocytes % (Manual) Monocytes % (Manual) Eosinophils % (Manual) Basophils % (Manual) Nucleated RBC % Seg Neutrophils # Seg Neutrophils # Man Lymphocytes # (Manual) Monocytes # (Manual) Eosinophils # (Manual) PT INR Fibrinogen dRVVT Confirm Interp Factor V Activity POC ABG pH POC ABG pCO2 POC ABG pO2 Sodium Potassium 3.1 L Chloride Carbon Dioxide BUN 73 H Creatinine 2.3 H Glucose 112 H POC Glucose 135 H 149 H Lactic Acid Calcium Phosphorus Magnesium Direct Bilirubin ALT Alkaline Phosphatase Troponin T C-Reactive Protein Total Protein Albumin Triglycerides Cholesterol LDL Cholesterol Direct HDL Cholesterol Urine WBC (Auto) Urine Creatinine Urine Total Protein Vancomycin Trough Rheumatoid Factor Complement C4 Miscellaneous Test Crossmatch 11/02/16 11/02/16 11/03/16 17:42 22:54 06:00 WBC RBC Hgb Hct MCV MCH MCHC RDW Plt Count Lymph % (Auto) [place] % (Auto) Lymph # [place] # Baso # Seg Neutrophils % Seg Neuts % (Manual) Lymphocytes % (Manual) Monocytes % (Manual) Eosinophils % (Manual) Basophils % (Manual) Nucleated RBC % Seg Neutrophils # Seg Neutrophils # Man Lymphocytes # (Manual) Monocytes # (Manual) Eosinophils # (Manual) PT INR Fibrinogen dRVVT Confirm Interp Factor V Activity POC ABG pH POC ABG pCO2 POC ABG pO2 Sodium Potassium Chloride 96.7 L Carbon Dioxide BUN 41 H Creatinine 1.5 H Glucose 145 H POC Glucose 182 H 115 H Lactic Acid Calcium Phosphorus 1.60 L D Magnesium 1.50 L Direct Bilirubin ALT Alkaline Phosphatase Troponin T C-Reactive Protein Total Protein Albumin Triglycerides Cholesterol LDL Cholesterol Direct HDL Cholesterol Urine WBC (Auto) Urine Creatinine Urine Total Protein Vancomycin Trough Rheumatoid Factor Complement C4 Miscellaneous Test Crossmatch Chest x-ray: report reviewed Allied health notes reviewed: RT
[2016-11-03] MEDS ORDERED: TPN ADULT 2,016 ML IV SCH (20:00)
[2016-11-04] MEDS: LOPRESSOR PO SCH ×4 (00:30→18:09)
[2016-11-04] MEDS: APRESOLINE IV PRN ×2 (02:26→18:06)
[2016-11-04] MEDS: HumuLIN R SUB-Q SCH ×4 (02:27→23:00)
[2016-11-04 06:46] LABS: BUN/Creatinine Ratio 27.36; Calcium 8.5 mg/dL (8.4-10.2)
[2016-11-04] MEDS ORDERED: SODIUM BICARBONATE FEEDTUBE PRN (09:15)
[2016-11-04] MEDS ORDERED: PANCREAZE DR 10,500 UNIT FEEDTUBE PRN (09:15)
[2016-11-04] MEDS ORDERED: SIMPLE SYRUP FEEDTUBE PRN ×2 (09:15)
[2016-11-04] MEDS: PROTONIX FEEDTUBE SCH (09:58)
[2016-11-04] MEDS: NORVASC PO SCH (09:59)
[2016-11-04] MEDS ORDERED: CATAPRES-TTS PATCH TD SCH ×2 (10:00)
--- NOTE | 2016-11-04 10:40 | Progress Note ---
Subjective Principal diagnosis: Acute resp failure on MVS; S/P Acute CVA; Acute Encephalopathy; JUANITA Interval history: Patient was seen today for follow-up on multiple renal related issues She is currently dialysis dependent and being dialyzed I also came to see and supervise her on hemodialysis access is working well Patient is mildly tachycardic, 110-120 range She is alert awake but does not follow purposeful commands Events of this hospitalization were noted Vitals labs intake and output medications were reviewed from today Allergies: Reviewed Social history: Reviewed Family history: Reviewed Physical examination HEENT: Mild pallor no icterus Neck: Supple no JVD Chest: Few faint crackles at the bases Heart: Regular rate and rhythm S1-S2 heard no S3-S4, mild tachycardia apical 116 Abdomen: Soft nontender no renal bruit no CVA tenderness no suprapubic fullness Extremity: Mild edema dry skin no peripheral cyanosis pulses palpable Neurological: Alert awake Musculoskeletal: No joint effusion noted Assessment and plan Acute on chronic renal failure patient is currently dialysis dependent and is being dialyzed, baseline creatinine around 1.7 Has history of chronic kidney disease and renovascular disease Hypokalemia currently on 4 potassium bath to monitor and follow Anemia and renal failure to monitor and follow hypertension tachycardia to monitor and follow Status post stroke involving left MCA area Acute hypoxic respiratory failure GI bleed, sepsis, candidemia, left renal artery stenosis Critically ill prognosis guarded to poor Seen and supervised on hemodialysis also discussed with dialysis nurse Sari sher is working well advised her to monitor hemodynamics closely may give albumin if needed to reduce third spacing and achieve desired ultrafiltration Will continue to follow and make recommendation from renal standpoint Objective - Vital Signs Vital signs: Vital Signs - 12hr 11/03/16 11/03/16 11/04/16 23:00 23:30 00:00 Temperature Pulse Rate 120 H 121 H 123 H Respiratory 21 26 H 21 Rate Blood Pressure 159/86 159/86 172/85 O2 Sat by Pulse 100 99 98 Oximetry O2 Sat by Pulse Oximetry [ Assessment] 11/04/16 11/04/16 11/04/16 00:03 00:10 00:30 Temperature 101.3 F H Pulse Rate 130 H Respiratory 22 Rate Blood Pressure 170/96 O2 Sat by Pulse 100 Oximetry O2 Sat by Pulse 100 Oximetry [ Assessment] 11/04/16 11/04/16 11/04/16 01:00 01:30 02:00 Temperature Pulse Rate 137 H 124 H 124 H Respiratory 13 24 24 Rate Blood Pressure 178/122 178/122 170/96 O2 Sat by Pulse Oximetry O2 Sat by Pulse Oximetry [ Assessment] 11/04/16 11/04/16 11/04/16 02:26 02:30 03:00 Temperature Pulse Rate 126 H 128 H 127 H Respiratory 25 H 26 H Rate Blood Pressure 170/96 178/122 161/85 O2 Sat by Pulse Oximetry O2 Sat by Pulse Oximetry [ Assessment] 11/04/16 11/04/16 11/04/16 03:30 03:52 04:00 Temperature 98.8 F Pulse Rate 129 H 128 H Respiratory 26 H 25 H Rate Blood Pressure 161/85 147/88 O2 Sat by Pulse 97 Oximetry O2 Sat by Pulse Oximetry [ Assessment] 11/04/16 11/04/16 11/04/16 04:10 04:30 05:00 Temperature Pulse Rate 129 H 128 H 126 H Respiratory 25 H 23 Rate Blood Pressure 147/88 147/88 137/95 O2 Sat by Pulse 96 Oximetry O2 Sat by Pulse Oximetry [ Assessment] 11/04/16 11/04/16 11/04/16 05:30 05:54 06:00 Temperature Pulse Rate 129 H 124 H 117 H Respiratory 22 19 Rate Blood Pressure 137/95 137/95 158/94 O2 Sat by Pulse 100 Oximetry O2 Sat by Pulse Oximetry [ Assessment] 11/04/16 11/04/16 11/04/16 06:30 07:00 07:30 Temperature Pulse Rate 111 H 117 H 119 H Respiratory 23 45 H 40 H Rate Blood Pressure 158/94 167/89 167/89 O2 Sat by Pulse 100 96 95 Oximetry O2 Sat by Pulse Oximetry [ Assessment] 11/04/16 11/04/16 11/04/16 08:00 08:29 08:30 Temperature 99.4 F Pulse Rate 122 H 125 H 125 H Respiratory 47 H 37 H Rate Blood Pressure 152/95 152/95 152/95 O2 Sat by Pulse 96 99 99 Oximetry O2 Sat by Pulse Oximetry [ Assessment] 11/04/16 09:59 Temperature Pulse Rate 126 H Respiratory Rate Blood Pressure 173/101 O2 Sat by Pulse Oximetry O2 Sat by Pulse Oximetry [ Assessment] - Lab 11/01/16 04:55 11/04/16 06:00 Most recent lab results Calcium 8.5 mg/dL (8.4-10.2) 11/04/16 06:00 Phosphorus 3.10 mg/dL (2.5-4.5) D 11/04/16 06:00 Magnesium 2.00 mg/dL (1.7-2.3) 11/04/16 06:00 Urine Creatinine TNR 10/29/16 07:45 Urine Sodium 36 mEq/L 09/16/16 19:19 Urine Total Protein 16 mg/dL (5-11.8) H 09/16/16 19:19
--- NOTE | 2016-11-04 11:41 | Progress Note ---
Assessment and Plan Assessment and plan: 46-year-old woman with a history of hypertension, diabetes, asthma, hyperlipidemia, chronic kidney disease and anxiety , who was brought in by family because, she couldn't get her words out, her face was also twisted, she was admitted for acute CVA and accelerated hypertension, she had a hx of poor adherence with her medications, and uncontrolled htn. Patient's blood pressure systolically on admission was noted be greater than 260. TPA was started but this was discontinued after 5 minutes because her blood pressure became uncontrolled. The TPA was not initiated again because the patient was outside the TPA window. Fever Reconsult infectious disease, has already completed antibiotics -Severe Sepsis with septic shock, recurrent. Patient with multiple episodes of sepsis. Initial episode due to presumed aspiration pneumonia and septic episode on 09/23 from candidemia then a third episode from peritonitis from gastric perforation from dislodged PEG , there was an abscess in the abdomen present at that time that was draining pus. +/-UTI. The latest episode was related to surgical site infection. Fevers have now resolved. Continue antibiotics per ID. Surgical wound infection/gram-negative sepsis/candidemia/peritonitis PEG has been removed Has already completed 14 days of abx and antifungals, ID input appreciated She will need to be on tube feeds through NG tube for a month, and then either a gastrostomy or jejunostomy tube replaced after her GI wounds have healed and infection is cleared JUANITA Likely due to vasomotor nephropathy and ATN given sepsis Nephrology input appreciated, continue hemodialysis Acute CVA with infarct. sp TPA Continue neuro checks. Neurology input appreciated, CT shows continued evolution of left MCA infarct with slight mass effect and edema, and there is no hemorrhage - PRINCE showed hyperdynamic with ef of 75%, neither clot nor septal defect seen - MRA Brain shows near complete occlusion of M2 and M3 of the left MCA - Repeat CT scan done on 09/11, shows stable findings - carotid doppler negative - Echo shows preserved systolic function but does show some left ventricular diastolic dysfunction - continue asa and statin for secondary ppx Persistent vegetative state This patient's needs placement at either hospice or SNF -She was denied for LTACH Acute hypoxic respiratory failure requiring MV >96hrs Status post tracheostomy, continue mechanical ventilation Nosocomial acquired aspiration pneumonia/sepsis Completed a course of antibiotics Asthma/COPD exacerbation Patient is on antibiotics, steroids and nebs, continue MV, intubated UTI Has completed a course of antibiotics Acute Toxic Metabolic encephalopathy. Likely multifactorial, mostly secondary to evolution of CVA for restlessness, we checked troponin, EKG, CXR which were all negative Hypertensive Emergency Continue current medications Paroxysmal atrial fibrillation with rapid ventricular rate, failed cardioversion Continue current medications, Not a candidate for anticoagulation secondary to anemia thrombocytopenia and massive CVA Hypokalemia/Hypomagnesemia/hypophosphatemia. Replete electrolytes as needed. Diabetes type 2. Continue sliding-scale regular insulin and Accu-Cheks. Hyperlipidemia. Continue statin Nutrition continue tube feeds Anemia requiring multiple transfusions/acute blood loss Has received 11 units of PRBC, now stable, continue to monitor Case discussed with the patient's family and pulmonology her POA is her Brother, Jam [phone] Dispo. Very poor prognosis. Plan for SNIF placement, she was ready denied by LTAC The high probability of a clinically significant, sudden or life threatening deterioration of the [cardiovascular and neurological] system(s) required my full and direct attention, intervention and personal management. The aggregate critical care time was [33] minutes. This time is in addition to time spent performing reported procedures but includes the following: [] Data Review and interpretation [] Patient assessment and monitoring of vital signs [] Documentation [] Medication orders and management History Interval history: She opens her eyes, but does not obey commands. Has tracheostomy in place Hospitalist Physical - Physical exam Narrative exam: General: Opens eyes, no distress HEENT: MMM, EOMI cardiac: S1-S2 heard lungs: ventilated breath sounds abdomen: soft, nontender, nondistended bowel sounds positive extremities: no edema clubbing or cyanosis Skin: no rash or lesion Neuro: Status post tracheostomy, opens eyes, does not obey commands, right- sided weakness - Constitutional Vitals: Temp Pulse Resp BP Pulse Ox 99.5 F 128 H 22 183/109 100 11/04/16 10:00 11/04/16 11:32 11/04/16 10:30 11/04/16 11:32 11/04/16 11:27 General appearance: Present: no acute distress, obese, other (on vent, non- responsive) Results - Labs CBC & Chem 7: 11/01/16 04:55 11/05/16 03:10 Labs: Laboratory Last Values WBC 11.2 K/mm3 (4.5-11.0) H 11/01/16 04:55 RBC 2.68 M/mm3 (3.65-5.03) L 11/01/16 04:55 Hgb 7.5 gm/dl (10.1-14.3) L 11/01/16 04:55 Hct 23.7 % (30.3-42.9) L 11/01/16 04:55 MCV 89 fl (79-97) 11/01/16 04:55 MCH 28 pg (28-32) 11/01/16 04:55 MCHC 32 % (30-34) 11/01/16 04:55 RDW 16.1 % (13.2-15.2) H 11/01/16 04:55 Plt Count 229 K/mm3 (140-440) 11/01/16 04:55 Lymph % (Auto) 16.7 % (13.4-35.0) 11/01/16 04:55 [place] % (Auto) 9.8 % (0.0-7.3) H 11/01/16 04:55 Eos % (Auto) 1.7 % (0.0-4.3) 11/01/16 04:55 Baso % (Auto) 1.0 % (0.0-1.8) 11/01/16 04:55 Lymph # 1.9 K/mm3 (1.2-5.4) 11/01/16 04:55 [place] # 1.1 K/mm3 (0.0-0.8) H 11/01/16 04:55 Eos # 0.2 K/mm3 (0.0-0.4) 11/01/16 04:55 Baso # 0.1 K/mm3 (0.0-0.1) 11/01/16 04:55 Add Manual Diff Complete 10/27/16 06:30 Total Counted 100 10/27/16 06:30 Seg Neutrophils % 70.8 % (40.0-70.0) H 11/01/16 04:55 Seg Neuts % (Manual) 78.0 % (40.0-70.0) H 10/27/16 06:30 Band Neutrophils % 0 % 10/27/16 06:30 Lymphocytes % (Manual) 14.0 % (13.4-35.0) 10/27/16 06:30 Reactive Lymphs % (Man) 0 % 10/27/16 06:30 Monocytes % (Manual) 7.0 % (0.0-7.3) 10/27/16 06:30 Eosinophils % (Manual) 0 % (0.0-4.3) 10/27/16 06:30 Basophils % (Manual) 1.0 % (0.0-1.8) 10/27/16 06:30 Metamyelocytes % 0 % 10/27/16 06:30 Myelocytes % 0 % 10/27/16 06:30 Promyelocytes % 0 % 10/27/16 06:30 Blast Cells % 0 % 10/27/16 06:30 Nucleated RBC % 2.0 % (0.0-0.9) H 10/27/16 06:30 Seg Neutrophils # 7.9 K/mm3 (1.8-7.7) H 11/01/16 04:55 Seg Neutrophils # Man 10.8 K/mm3 (1.8-7.7) H 10/27/16 06:30 Band Neutrophils # 0.0 K/mm3 10/27/16 06:30 Lymphocytes # (Manual) 1.9 K/mm3 (1.2-5.4) 10/27/16 06:30 Abs React Lymphs (Man) 0.0 K/mm3 10/27/16 06:30 Monocytes # (Manual) 1.0 K/mm3 (0.0-0.8) H 10/27/16 06:30 Eosinophils # (Manual) 0.0 K/mm3 (0.0-0.4) 10/27/16 06:30 Basophils # (Manual) 0.1 K/mm3 (0.0-0.1) 10/27/16 06:30 Metamyelocytes # 0.0 K/mm3 10/27/16 06:30 Myelocytes # 0.0 K/mm3 10/27/16 06:30 Promyelocytes # 0.0 K/mm3 10/27/16 06:30 Blast Cells # 0.0 K/mm3 10/27/16 06:30 Pathologist Review 09/13/16 04:00 WBC Morphology Not Reportable 10/27/16 06:30 Hypersegmented Neuts Not Reportable 10/27/16 06:30 Hyposegmented Neuts Not Reportable 10/27/16 06:30 Hypogranular Neuts Not Reportable 10/27/16 06:30 Smudge Cells Not Reportable 10/27/16 06:30 Toxic Granulation Not Reportable 10/27/16 06:30 Toxic Vacuolation Not Reportable 10/27/16 06:30 Dohle Bodies Not Reportable 10/27/16 06:30 Pelger-Huet Anomaly Not Reportable 10/27/16 06:30 Jasmina Rods Not Reportable 10/27/16 06:30 Platelet Estimate Cons 10/27/16 06:30 Clumped Platelets Not Reportable 10/27/16 06:30 Plt Clumps, EDTA Not Reportable 10/27/16 06:30 Large Platelets Few 10/27/16 06:30 Giant Platelets Not Reportable 10/27/16 06:30 Platelet Satelliting Not Reportable 10/27/16 06:30 Plt Morphology Comment Not Reportable 10/27/16 06:30 RBC Morphology Not Reportable 10/27/16 06:30 Dimorphic RBCs Not Reportable 10/27/16 06:30 Polychromasia Not Reportable 10/27/16 06:30 Hypochromasia Not Reportable 10/27/16 06:30 Poikilocytosis Not Reportable 10/27/16 06:30 Anisocytosis 1+ 10/27/16 06:30 Microcytosis Not Reportable 10/27/16 06:30 Macrocytosis Not Reportable 10/27/16 06:30 Spherocytes Not Reportable 10/27/16 06:30 Pappenheimer Bodies Not Reportable 10/27/16 06:30 Sickle Cells Not Reportable 10/27/16 06:30 Target Cells Not Reportable 10/27/16 06:30 Tear Drop Cells Not Reportable 10/27/16 06:30 Ovalocytes Not Reportable 10/27/16 06:30 Stomatocytes Few 10/06/16 03:50 Helmet Cells Not Reportable 10/27/16 06:30 [place] Bodies Not Reportable 10/27/16 06:30 [place] Rings Not Reportable 10/27/16 06:30 [place] Cells Not Reportable 10/27/16 06:30 Bite Cells Not Reportable 10/27/16 06:30 Crenated Cell Not Reportable 10/27/16 06:30 Elliptocytes Not Reportable 10/27/16 06:30 Acanthocytes (Spur) Not Reportable 10/27/16 06:30 Rouleaux Not Reportable 10/27/16 06:30 Hemoglobin C Crystals Not Reportable 10/27/16 06:30 Schistocytes Not Reportable 10/27/16 06:30 Malaria parasites Not Reportable 10/27/16 06:30 ESR > 140.0 mm/Hr (0-20) 09/08/16 11:48 Jun Bodies Not Reportable 10/27/16 06:30 Hem Pathologist Commnt No 10/27/16 06:30 PT 19.0 Sec. (12.2-14.9) H 10/09/16 03:45 INR 1.51 (0.87-1.13) H 10/09/16 03:45 APTT 33.0 Sec. (24.2-36.6) 10/09/16 03:45 Thrombin Time 16.8 Sec. (15.1-19.6) 09/03/16 00:10 Fibrinogen 750 mg/dl (211-480) H 09/08/16 11:48 Lupus Anticoagulant see below 09/12/16 09:59 LA PTT Baseline See scanned report 09/12/16 09:59 dRVVT Confirm Interp Positive (Negative) H 09/12/16 09:59 dRVVT Screen 50:50 See scanned report 09/12/16 09:59 dRVVT Mix Interpret See scanned report 09/12/16 09:59 Protein C Antigen 122 % (70-140) 09/08/16 15:35 Free Protein S 97 % normal (50-147) 09/08/16 15:35 Total Protein S 109 % (70-140) 09/08/16 15:35 Antithrombin III Ag 100 % (80-120) 09/08/16 15:35 Heparin Anti-Xa, Unfract Negative (Negative) 09/29/16 13:35 Factor V Activity 182 % (65-150) H 09/08/16 15:35 POC ABG pH 7.561 (7.35-7.45) H 10/16/16 20:48 POC ABG pCO2 24.4 (35-45) L 10/16/16 20:48 POC ABG pO2 77 (80-105) L 10/16/16 20:48 POC ABG HCO3 21.9 10/16/16 20:48 POC ABG Total CO2 23 10/16/16 20:48 POC ABG O2 Sat 97 10/16/16 20:48 POC ABG Base Excess 0 10/16/16 20:48 FiO2 25 % 10/16/16 20:48 Sodium 138 mmol/L (137-145) 11/04/16 06:00 Potassium 4.1 mmol/L (3.6-5.0) 11/04/16 06:00 Chloride 96.7 mmol/L (98-107) L 11/04/16 06:00 Carbon Dioxide 23 mmol/L (22-30) 11/04/16 06:00 Anion Gap 22 mmol/L 11/04/16 06:00 BUN 52 mg/dL (7-17) H 11/04/16 06:00 Creatinine 1.9 mg/dL (0.7-1.2) H 11/04/16 06:00 Estimated GFR 35 ml/min 11/04/16 06:00 BUN/Creatinine Ratio 27.36 % 11/04/16 06:00 Glucose 126 mg/dL (65-100) H 11/04/16 06:00 POC Glucose 137 (70-105) H 11/04/16 05:41 Osmolality 351 Mosm/kg 09/16/16 11:47 Lactic Acid 4.50 mmol/L (0.7-2.0) H* 09/28/16 07:25 Calcium 8.5 mg/dL (8.4-10.2) 11/04/16 06:00 Phosphorus 3.10 mg/dL (2.5-4.5) D 11/04/16 06:00 Magnesium 2.00 mg/dL (1.7-2.3) 11/04/16 06:00 Total Bilirubin 0.30 mg/dL (0.1-1.2) 10/17/16 04:24 Direct Bilirubin 0.3 mg/dL (0-0.2) H 10/10/16 05:00 Indirect Bilirubin 0.1 mg/dL 10/10/16 05:00 AST 39 units/L (5-40) 10/17/16 04:24 ALT 13 units/L (7-56) 10/17/16 04:24 Alkaline Phosphatase 138 units/L (35-129) H 10/17/16 04:24 Ammonia 27.0 umol/L (25-60) 09/07/16 08:37 Total Creatine Kinase 121 units/L (30-135) 09/29/16 20:12 CK-MB (CK-2) < 1.0 ng/mL (0.0-4.0) 09/29/16 20:12 CK-MB (CK-2) Rel Index 0.8 (0-4) 09/29/16 20:12 Troponin T 0.204 ng/mL (0.00-0.029) H* 09/29/16 20:12 C-Reactive Protein 15.80 mg/dL (0.00-1.30) H 10/11/16 04:15 Total Protein 6.2 g/dL (6.3-8.2) L 10/17/16 04:24 Albumin 1.5 g/dL (3.9-5) L 10/17/16 04:24 Albumin/Globulin Ratio 0.3 % 10/17/16 04:24 Triglycerides 137 mg/dL (2-149) 09/29/16 20:12 Cholesterol 31 mg/dL (50-199) L 09/29/16 20:12 LDL Cholesterol Direct 4 mg/dL (50-130) L 09/29/16 20:12 HDL Cholesterol 3 mg/dL (40-59) L 09/29/16 20:12 Cholesterol/HDL Ratio 10.33 % 09/29/16 20:12 Angiotensin Convert Enz See scanned report 09/08/16 11:48 Renin 0.99 ng/mL/h (0.25-5.82) 10/07/16 10:56 Aldosterone <1 ng/dL () 10/07/16 10:56 Aldosterone/Renin Dir see below 10/07/16 10:56 Serotonin Release Assay See scanned report 09/29/16 13:35 TSH 1.010 mlU/mL (0.270-4.200) 09/07/16 08:37 HCG, Qual Negative (Negative) 09/03/16 00:10 Urine Color [place] (Yellow) 10/07/16 18:30 Urine Turbidity Turbid (Clear) 10/07/16 18:30 Urine pH 7.0 (5.0-7.0) 10/07/16 18:30 Ur Specific [place] 1.012 (1.003-1.030) 10/07/16 18:30 Urine Protein 100 mg/dl mg/dL (Negative) 10/07/16 18:30 Urine Glucose (UA) Neg mg/dL (Negative) 10/07/16 18:30 Urine Ketones Neg mg/dL (Negative) 10/07/16 18:30 Urine Blood Lg (Negative) 10/07/16 18:30 Urine Nitrite Neg (Negative) 10/07/16 18:30 Urine Bilirubin Neg (Negative) 10/07/16 18:30 Urine Urobilinogen < 2.0 mg/dL (<2.0) 10/07/16 18:30 Ur Leukocyte Esterase Lg (Negative) 10/07/16 18:30 Urine WBC (Auto) > 182.0 /HPF (0.0-6.0) H 10/07/16 18:30 Urine RBC (Auto) > 182.0 /HPF (0.0-6.0) 10/07/16 18:30 U Epithel Cells (Auto) 1.0 /HPF (0-13.0) 10/07/16 18:30 Urine Bacteria (Auto) 3+ /HPF (Negative) 10/07/16 18:30 Urine WBC Clumps 2+ /HPF 09/07/16 02:47 Hyaline Casts 4 /LPF 09/07/16 02:47 Urine Mucus Few /HPF 10/07/16 18:30 Urine Yeast (Budding) 3+ /HPF 10/07/16 18:30 Urine Eosinophils None seen (None Seen) 09/07/16 16:00 Urine Total Volume TNR 10/29/16 07:45 Urine Creatinine TNR 10/29/16 07:45 Height (in) TNR 10/29/16 07:45 Weight (lb) TNR 10/29/16 07:45 Creatinine Clearance TNR 10/29/16 07:45 Urine Sodium 36 mEq/L 09/16/16 19:19 Urine Total Protein 16 mg/dL (5-11.8) H 09/16/16 19:19 Vancomycin Trough 2.3 ug/mL (5.0-20.0) L 09/21/16 13:00 Random Vancomycin 17.0 ug/mL (0-40.0) 10/20/16 06:00 Urine Opiates Screen Presumptive negative 09/03/16 15:11 Urine Methadone Screen Presumptive positive 09/03/16 15:11 Ur Barbiturates Screen Presumptive positive 09/03/16 15:11 Ur Phencyclidine Scrn Presumptive negative 09/03/16 15:11 Ur Amphetamines Screen Presumptive negative 09/03/16 15:11 U Benzodiazepines Scrn Presumptive negative 09/03/16 15:11 Urine Cocaine Screen Presumptive negative 09/03/16 15:11 U Marijuana (THC) Screen Presumptive positive 09/03/16 15:11 Drugs of Abuse Note Disclamer 09/03/16 15:11 Rheumatoid Factor 24 IU/ml (0-13) H 09/08/16 11:48 SAHIL Screen Negative (Negative) 09/07/16 09:20 Proteinase 3 (PR3) Ab <1.0 AI (<1.0) 09/07/16 09:20 Myeloperoxidase Ab <1.0 AI (<1.0) 09/07/16 09:20 Sjogren's Antibody <1.0 AI (<1.0) 09/08/16 15:35 Scl-70 Scleroderma Ab <1.0 AI (<1.0) 09/08/16 15:35 Centromere B Antibody <1.0 AI (<1.0) 09/08/16 12:02 Heparin-induced Plt Ab Negative (Negative) 09/29/16 13:35 UF Heparin High Dose 11 % Release 09/29/16 13:35 SUDHIR UFH Low Dose 0.1 6 % Release 09/29/16 13:35 SUDHIR UFH Low Dose 0.5 8 % Release 09/29/16 13:35 Cardiolipid IgG Ab <14 GPL (<=14) 09/12/16 09:59 Cardiolipid IgA Ab <11 APL (<=11) 09/12/16 09:59 Cardiolipid IgM Ab <12 MPL (<=12) 09/12/16 09:59 Complement C3 148 mg/dL (90-180) 09/07/16 09:20 Complement C4 58 mg/dL (16-47) H 09/07/16 09:20 RPR Nonreactive (Nonreactive) 09/08/16 11:48 Hepatitis A IgM Ab Non-reactive (NonReactive) 09/24/16 14:40 Hep Bs Antigen Non-reactive (Negative) 09/24/16 14:40 Hep B Core IgM Ab Non-reactive (NonReactive) 09/24/16 14:40 Hepatitis C Antibody Non-reactive (NonReactive) 09/24/16 14:40 HIV 1&2 Antibody Rapid Non react (Non React) 09/08/16 11:48 HIV P24 Antigen Non react (Non React) 09/08/16 11:48 Miscellaneous Test Flexitest 1 H 10/20/16 16:00 Blood Type A POSITIVE 10/24/16 Unknown Antibody Screen Negative 10/24/16 Unknown DELORIS Antibody Screen Negative 09/25/16 10:30 Crossmatch See Detail 10/24/16 Unknown
--- NOTE | 2016-11-04 12:13 | Progress Note ---
Assessment and Plan - Patient Problems (1) Dislodged gastrostomy tube Current Visit: Yes Status: Acute Plan to address problem: Continue local wound care, ostomy bags for drainage. Continue supportive care. Await tr to LTAC. No plan for PEG d/t gastric staple line and intraabdominal spillage for at least a month. Continue TF as tolerated. Subjective Date of service: 11/04/16 Patient Reports: Positive: no new complaints, fever Objective Vital Signs - 12hr 11/04/16 11/04/16 11/04/16 00:10 00:30 01:00 Temperature Pulse Rate 130 H 137 H Respiratory 22 13 Rate Blood Pressure 170/96 178/122 O2 Sat by Pulse 100 Oximetry O2 Sat by Pulse Oximetry [ Anterior Bilateral Throughout] O2 Sat by Pulse 100 Oximetry [ Assessment] 11/04/16 11/04/16 11/04/16 01:30 02:00 02:26 Temperature Pulse Rate 124 H 124 H 126 H Respiratory 24 24 Rate Blood Pressure 178/122 170/96 170/96 O2 Sat by Pulse Oximetry O2 Sat by Pulse Oximetry [ Anterior Bilateral Throughout] O2 Sat by Pulse Oximetry [ Assessment] 11/04/16 11/04/16 11/04/16 02:30 03:00 03:30 Temperature Pulse Rate 128 H 127 H 129 H Respiratory 25 H 26 H 26 H Rate Blood Pressure 178/122 161/85 161/85 O2 Sat by Pulse Oximetry O2 Sat by Pulse Oximetry [ Anterior Bilateral Throughout] O2 Sat by Pulse Oximetry [ Assessment] 11/04/16 11/04/16 11/04/16 03:52 04:00 04:10 Temperature 98.8 F Pulse Rate 128 H 129 H Respiratory 25 H Rate Blood Pressure 147/88 147/88 O2 Sat by Pulse 97 96 Oximetry O2 Sat by Pulse Oximetry [ Anterior Bilateral Throughout] O2 Sat by Pulse Oximetry [ Assessment] 11/04/16 11/04/16 11/04/16 04:30 05:00 05:30 Temperature Pulse Rate 128 H 126 H 129 H Respiratory 25 H 23 22 Rate Blood Pressure 147/88 137/95 137/95 O2 Sat by Pulse Oximetry O2 Sat by Pulse Oximetry [ Anterior Bilateral Throughout] O2 Sat by Pulse Oximetry [ Assessment] 11/04/16 11/04/16 11/04/16 05:54 06:00 06:30 Temperature Pulse Rate 124 H 117 H 111 H Respiratory 19 23 Rate Blood Pressure 137/95 158/94 158/94 O2 Sat by Pulse 100 100 Oximetry O2 Sat by Pulse Oximetry [ Anterior Bilateral Throughout] O2 Sat by Pulse Oximetry [ Assessment] 11/04/16 11/04/16 11/04/16 07:00 07:30 08:00 Temperature 99.4 F Pulse Rate 117 H 119 H 122 H Respiratory 45 H 40 H 47 H Rate Blood Pressure 167/89 167/89 152/95 O2 Sat by Pulse 96 95 96 Oximetry O2 Sat by Pulse Oximetry [ Anterior Bilateral Throughout] O2 Sat by Pulse Oximetry [ Assessment] 11/04/16 11/04/16 11/04/16 08:29 08:30 09:00 Temperature Pulse Rate 125 H 125 H 126 H Respiratory 37 H 25 H Rate Blood Pressure 152/95 152/95 173/101 O2 Sat by Pulse 99 99 100 Oximetry O2 Sat by Pulse Oximetry [ Anterior Bilateral Throughout] O2 Sat by Pulse Oximetry [ Assessment] 11/04/16 11/04/16 11/04/16 09:30 09:59 10:00 Temperature 99.5 F Pulse Rate 127 H 126 H 126 H Respiratory 22 25 H Rate Blood Pressure 173/101 173/101 179/103 O2 Sat by Pulse 100 100 Oximetry O2 Sat by Pulse 100 Oximetry [ Anterior Bilateral Throughout] O2 Sat by Pulse Oximetry [ Assessment] 11/04/16 11/04/16 11/04/16 10:15 10:30 10:45 Temperature Pulse Rate 128 H 120 H 129 H Respiratory 22 Rate Blood Pressure 153/95 150/93 166/100 O2 Sat by Pulse 100 Oximetry O2 Sat by Pulse Oximetry [ Anterior Bilateral Throughout] O2 Sat by Pulse Oximetry [ Assessment] 11/04/16 11/04/16 11/04/16 11:01 11:15 11:27 Temperature Pulse Rate 130 H 129 H 130 H Respiratory Rate Blood Pressure 163/106 175/112 175/112 O2 Sat by Pulse 100 Oximetry O2 Sat by Pulse Oximetry [ Anterior Bilateral Throughout] O2 Sat by Pulse Oximetry [ Assessment] 11/04/16 11/04/16 11/04/16 11:32 11:45 12:02 Temperature Pulse Rate 128 H 128 H 130 H Respiratory Rate Blood Pressure 183/109 177/108 186/109 O2 Sat by Pulse Oximetry O2 Sat by Pulse Oximetry [ Anterior Bilateral Throughout] O2 Sat by Pulse Oximetry [ Assessment] - General physical appearance no distress, chronically ill - Respiratory normal respiratory effort - Abdomen soft, not tender, other (wounds with purulent drainage. Osotmy bags over sites. No significant induration or erythema.) - Labs 11/01/16 04:55 11/04/16 06:00 Diabetes panel 11/04/16 Range/Units 06:00 Sodium 138 (137-145) mmol/L Potassium 4.1 (3.6-5.0) mmol/L Chloride 96.7 L (98-107) mmol/L Carbon Dioxide 23 (22-30) mmol/L BUN 52 H (7-17) mg/dL Creatinine 1.9 H (0.7-1.2) mg/dL Glucose 126 H (65-100) mg/dL Calcium 8.5 (8.4-10.2) mg/dL Calcium panel 11/04/16 Range/Units 06:00 Calcium 8.5 (8.4-10.2) mg/dL Phosphorus 3.10 D (2.5-4.5) mg/dL Pituitary panel 11/04/16 Range/Units 06:00 Sodium 138 (137-145) mmol/L Potassium 4.1 (3.6-5.0) mmol/L Chloride 96.7 L (98-107) mmol/L Carbon Dioxide 23 (22-30) mmol/L BUN 52 H (7-17) mg/dL Creatinine 1.9 H (0.7-1.2) mg/dL Glucose 126 H (65-100) mg/dL Calcium 8.5 (8.4-10.2) mg/dL Adrenal panel 11/04/16 Range/Units 06:00 Sodium 138 (137-145) mmol/L Potassium 4.1 (3.6-5.0) mmol/L Chloride 96.7 L (98-107) mmol/L Carbon Dioxide 23 (22-30) mmol/L BUN 52 H (7-17) mg/dL Creatinine 1.9 H (0.7-1.2) mg/dL Glucose 126 H (65-100) mg/dL Calcium 8.5 (8.4-10.2) mg/dL
[2016-11-04] MEDS: DURAGESIC TD SCH (13:00)
--- NOTE | 2016-11-04 13:16 | Progress Note ---
Assessment and Plan Patient is 46-year-old woman with a history of hypertension, diabetes mellitus, asthma, hyperlipidemia, chronic kidney disease and anxiety, who was brought in by family because she couldn't get her words out, her face was also twisted, she was admitted for acute CVA and accelerated hypertension, she had a hx of poor adherence with her medications, and uncontrolled htn. Patient's SBP on admission was noted be greater than 260. TPA was started but this it was discontinued after 5 minutes because her blood pressure became uncontrolled. The TPA was not initiated again because the patient was outside the TPA window. - Patient Problems (1) Acute respiratory failure with hypoxia Current Visit: Yes Status: Acute Plan to address problem: Continue with mechanical ventilatory support and daily SBTs as tolerated Currently tolerating ATP trials Lung protective strategies -VAP bundle, HOB >40 - SCDs for VTE prophylaxis - Stress ulcer prophylaxis -Bronchodilators- h/o asthma - TPN, accucheck with glycemic control - ABGs and CXR PRN (2) Acute blood loss anemia Current Visit: Yes Status: Resolved Plan to address problem: Transfuse for Hgh 7g/dl Monitor counts (3) Acute CVA (cerebrovascular accident) Current Visit: Yes Status: Acute Plan to address problem: CTScan -subacute MCA territory infarct Secondary stroke prophylaxis Neuroprotective measures Aspiration precautions (4) Chronic renal insufficiency Current Visit: Yes Status: Acute Qualifiers: Chronic kidney disease stage: C Plan to address problem: UF/HD per renal service Renal following (5) Uncontrolled hypertension Current Visit: Yes Status: Acute Plan to address problem: Monitor closely and adjust anti-hypertensive medications (6) Leukocytosis (leucocytosis) Current Visit: Yes Status: Acute Qualifiers: Leukocytosis type: leukemoid reaction Qualified Code(s): D72.823 - Leukemoid reaction Plan to address problem: High grade fevers ID following and monitoring (7) Dislodged gastrostomy tube Current Visit: Yes Status: Acute Plan to address problem: With bowel perforation/peritonitis( resolved) Remains NPO except medications and on TPN for nutritional support. (8) Fungemia Current Visit: Yes Status: Resolved Plan to address problem: Anti-fungal therapy per ID service. Subjective Date of service: 11/04/16 Principal diagnosis: Acute resp failure on MVS; S/P Acute CVA; Acute Encephalopathy; JUANITA Interval history: Seen and examined. Vitals, labs, medications, chart reviewed. High grade fevers overnight. Discussed with RT and RN during interdisciplinary rounds. Objective Vital Signs - 12hr 11/04/16 11/04/16 11/04/16 01:30 02:00 02:26 Temperature Pulse Rate 124 H 124 H 126 H Respiratory 24 24 Rate Blood Pressure 178/122 170/96 170/96 O2 Sat by Pulse Oximetry O2 Sat by Pulse Oximetry [ Anterior Bilateral Throughout] 11/04/16 11/04/16 11/04/16 02:30 03:00 03:30 Temperature Pulse Rate 128 H 127 H 129 H Respiratory 25 H 26 H 26 H Rate Blood Pressure 178/122 161/85 161/85 O2 Sat by Pulse Oximetry O2 Sat by Pulse Oximetry [ Anterior Bilateral Throughout] 11/04/16 11/04/16 11/04/16 03:52 04:00 04:10 Temperature 98.8 F Pulse Rate 128 H 129 H Respiratory 25 H Rate Blood Pressure 147/88 147/88 O2 Sat by Pulse 97 96 Oximetry O2 Sat by Pulse Oximetry [ Anterior Bilateral Throughout] 11/04/16 11/04/16 11/04/16 04:30 05:00 05:30 Temperature Pulse Rate 128 H 126 H 129 H Respiratory 25 H 23 22 Rate Blood Pressure 147/88 137/95 137/95 O2 Sat by Pulse Oximetry O2 Sat by Pulse Oximetry [ Anterior Bilateral Throughout] 11/04/16 11/04/16 11/04/16 05:54 06:00 06:30 Temperature Pulse Rate 124 H 117 H 111 H Respiratory 19 23 Rate Blood Pressure 137/95 158/94 158/94 O2 Sat by Pulse 100 100 Oximetry O2 Sat by Pulse Oximetry [ Anterior Bilateral Throughout] 11/04/16 11/04/16 11/04/16 07:00 07:30 08:00 Temperature 99.4 F Pulse Rate 117 H 119 H 122 H Respiratory 45 H 40 H 47 H Rate Blood Pressure 167/89 167/89 152/95 O2 Sat by Pulse 96 95 96 Oximetry O2 Sat by Pulse Oximetry [ Anterior Bilateral Throughout] 11/04/16 11/04/16 11/04/16 08:29 08:30 09:00 Temperature Pulse Rate 125 H 125 H 126 H Respiratory 37 H 25 H Rate Blood Pressure 152/95 152/95 173/101 O2 Sat by Pulse 99 99 100 Oximetry O2 Sat by Pulse Oximetry [ Anterior Bilateral Throughout] 11/04/16 11/04/16 11/04/16 09:30 09:59 10:00 Temperature 99.5 F Pulse Rate 127 H 126 H 126 H Respiratory 22 25 H Rate Blood Pressure 173/101 173/101 179/103 O2 Sat by Pulse 100 100 Oximetry O2 Sat by Pulse 100 Oximetry [ Anterior Bilateral Throughout] 11/04/16 11/04/16 11/04/16 10:15 10:30 10:45 Temperature Pulse Rate 128 H 120 H 129 H Respiratory 22 Rate Blood Pressure 153/95 150/93 166/100 O2 Sat by Pulse 100 Oximetry O2 Sat by Pulse Oximetry [ Anterior Bilateral Throughout] 11/04/16 11/04/16 11/04/16 11:01 11:15 11:27 Temperature Pulse Rate 130 H 129 H 130 H Respiratory Rate Blood Pressure 163/106 175/112 175/112 O2 Sat by Pulse 100 Oximetry O2 Sat by Pulse Oximetry [ Anterior Bilateral Throughout] 11/04/16 11/04/16 11/04/16 11:32 11:45 12:00 Temperature 98 F Pulse Rate 128 H 128 H Respiratory Rate Blood Pressure 183/109 177/108 O2 Sat by Pulse Oximetry O2 Sat by Pulse Oximetry [ Anterior Bilateral Throughout] 11/04/16 11/04/16 11/04/16 12:02 12:15 12:32 Temperature Pulse Rate 130 H 130 H 131 H Respiratory Rate Blood Pressure 186/109 186/109 172/109 O2 Sat by Pulse Oximetry O2 Sat by Pulse Oximetry [ Anterior Bilateral Throughout] 11/04/16 11/04/16 12:45 13:02 Temperature Pulse Rate 128 H 130 H Respiratory Rate Blood Pressure 172/109 177/110 O2 Sat by Pulse Oximetry O2 Sat by Pulse Oximetry [ Anterior Bilateral Throughout] Constitutional: no acute distress, other (eyes open; not tracking movements) Eyes: non-icteric, other (tracheostomy tube in midline of neck) ENT: oropharynx moist Neck: supple, no lymphadenopathy Effort: normal, mildly labored Ascultation: Right: diminished breath sounds (base), Bilateral: clear, rales, rhonchi (scant) Cardiovascular: regular rate and rhythm, irregular rhythm Gastrointestinal: hypoactive bowel sounds, soft, non-tender, non-distended, other (drainage from wound sites) Integumentary: normal, other (erythema to skin of back with some healing areas; no obvious TEN's features) Extremities: no cyanosis, no edema, pulses normal, no ischemia or petechiae Neurologic: pupils equal and round (encephalopathy, awake, alert, not tracking, not obeying commands), other (sedated) Psychiatric: other (unable to assess) CBC and BMP: 12/28/16 04:00 12/29/16 05:15 ABG, PT/INR, D-dimer: ABG POC ABG pH 7.561 (7.35-7.45) H 10/16/16 20:48 POC ABG pCO2 24.4 (35-45) L 10/16/16 20:48 POC ABG pO2 77 (80-105) L 10/16/16 20:48 POC ABG HCO3 21.9 10/16/16 20:48 POC ABG Total CO2 23 10/16/16 20:48 POC ABG O2 Sat 97 10/16/16 20:48 PT/INR, D-dimer PT 19.0 Sec. (12.2-14.9) H 10/09/16 03:45 INR 1.51 (0.87-1.13) H 10/09/16 03:45 Abnormal lab findings: Abnormal Labs 09/03/16 09/03/16 09/03/16 12:12 15:07 16:20 WBC RBC Hgb Hct MCV MCH MCHC RDW Plt Count Lymph % (Auto) Centre % (Auto) Lymph # Centre # Baso # Seg Neutrophils % Seg Neuts % (Manual) Lymphocytes % (Manual) Monocytes % (Manual) Eosinophils % (Manual) Basophils % (Manual) Nucleated RBC % Seg Neutrophils # Seg Neutrophils # Man Lymphocytes # (Manual) Monocytes # (Manual) Eosinophils # (Manual) PT INR Fibrinogen dRVVT Confirm Interp Factor V Activity POC ABG pH 7.452 H POC ABG pCO2 POC ABG pO2 Sodium Potassium Chloride Carbon Dioxide BUN Creatinine Glucose POC Glucose 178 H Lactic Acid Calcium Phosphorus 2.20 L Magnesium 1.60 L Direct Bilirubin ALT Alkaline Phosphatase Troponin T C-Reactive Protein Total Protein Albumin Triglycerides Cholesterol LDL Cholesterol Direct HDL Cholesterol Urine WBC (Auto) Urine Creatinine Urine Total Protein Vancomycin Trough Rheumatoid Factor Complement C4 Miscellaneous Test Crossmatch 09/03/16 09/03/16 09/03/16 17:57 17:58 23:50 WBC RBC Hgb Hct MCV MCH MCHC RDW Plt Count Lymph % (Auto) Centre % (Auto) Lymph # Centre # Baso # Seg Neutrophils % Seg Neuts % (Manual) Lymphocytes % (Manual) Monocytes % (Manual) Eosinophils % (Manual) Basophils % (Manual) Nucleated RBC % Seg Neutrophils # Seg Neutrophils # Man Lymphocytes # (Manual) Monocytes # (Manual) Eosinophils # (Manual) PT INR Fibrinogen dRVVT Confirm Interp Factor V Activity POC ABG pH POC ABG pCO2 POC ABG pO2 Sodium Potassium Chloride Carbon Dioxide BUN Creatinine Glucose POC Glucose 162 H 145 H Lactic Acid Calcium Phosphorus 2.30 L Magnesium Direct Bilirubin ALT Alkaline Phosphatase Troponin T C-Reactive Protein Total Protein Albumin Triglycerides Cholesterol LDL Cholesterol Direct HDL Cholesterol Urine WBC (Auto) Urine Creatinine Urine Total Protein Vancomycin Trough Rheumatoid Factor Complement C4 Miscellaneous Test Crossmatch 09/04/16 09/04/16 09/04/16 03:31 03:31 05:42 WBC RBC Hgb 9.7 L D Hct MCV 72 L MCH 23 L MCHC RDW 17.5 H Plt Count Lymph % (Auto) 11.1 L Centre % (Auto) Lymph # Centre # Baso # Seg Neutrophils % 84.3 H Seg Neuts % (Manual) Lymphocytes % (Manual) Monocytes % (Manual) Eosinophils % (Manual) Basophils % (Manual) Nucleated RBC % Seg Neutrophils # 8.9 H Seg Neutrophils # Man Lymphocytes # (Manual) Monocytes # (Manual) Eosinophils # (Manual) PT INR Fibrinogen dRVVT Confirm Interp Factor V Activity POC ABG pH POC ABG pCO2 POC ABG pO2 Sodium 135 L Potassium 2.9 L* Chloride 97.2 L Carbon Dioxide 19 L BUN Creatinine 1.7 H Glucose 170 H POC Glucose 152 H Lactic Acid Calcium Phosphorus Magnesium Direct Bilirubin ALT Alkaline Phosphatase Troponin T C-Reactive Protein Total Protein Albumin Triglycerides 160 H Cholesterol LDL Cholesterol Direct HDL Cholesterol 31 L Urine WBC (Auto) Urine Creatinine Urine Total Protein Vancomycin Trough Rheumatoid Factor Complement C4 Miscellaneous Test Crossmatch 09/04/16 09/04/16 09/04/16 11:34 17:46 23:29 WBC RBC Hgb Hct MCV MCH MCHC RDW Plt Count Lymph % (Auto) Centre % (Auto) Lymph # Centre # Baso # Seg Neutrophils % Seg Neuts % (Manual) Lymphocytes % (Manual) Monocytes % (Manual) Eosinophils % (Manual) Basophils % (Manual) Nucleated RBC % Seg Neutrophils # Seg Neutrophils # Man Lymphocytes # (Manual) Monocytes # (Manual) Eosinophils # (Manual) PT INR Fibrinogen dRVVT Confirm Interp Factor V Activity POC ABG pH POC ABG pCO2 POC ABG pO2 Sodium Potassium Chloride Carbon Dioxide BUN Creatinine Glucose POC Glucose 165 H 210 H 139 H Lactic Acid Calcium Phosphorus Magnesium Direct Bilirubin ALT Alkaline Phosphatase Troponin T C-Reactive Protein Total Protein Albumin Triglycerides Cholesterol LDL Cholesterol Direct HDL Cholesterol Urine WBC (Auto) Urine Creatinine Urine Total Protein Vancomycin Trough Rheumatoid Factor Complement C4 Miscellaneous Test Crossmatch 09/05/16 09/05/16 09/05/16 04:05 04:05 05:38 WBC RBC Hgb Hct MCV 76 L D MCH 23 L MCHC RDW 17.8 H Plt Count Lymph % (Auto) Centre % (Auto) Lymph # Centre # Baso # Seg Neutrophils % Seg Neuts % (Manual) Lymphocytes % (Manual) Monocytes % (Manual) Eosinophils % (Manual) Basophils % (Manual) Nucleated RBC % Seg Neutrophils # Seg Neutrophils # Man Lymphocytes # (Manual) Monocytes # (Manual) Eosinophils # (Manual) PT INR Fibrinogen dRVVT Confirm Interp Factor V Activity POC ABG pH POC ABG pCO2 POC ABG pO2 Sodium 134 L Potassium Chloride Carbon Dioxide 18 L BUN Creatinine 1.8 H Glucose 192 H POC Glucose 175 H Lactic Acid Calcium Phosphorus Magnesium Direct Bilirubin ALT Alkaline Phosphatase Troponin T C-Reactive Protein Total Protein Albumin Triglycerides Cholesterol LDL Cholesterol Direct HDL Cholesterol Urine WBC (Auto) Urine Creatinine Urine Total Protein Vancomycin Trough Rheumatoid Factor Complement C4 Miscellaneous Test Crossmatch 09/05/16 09/05/16 09/05/16 11:38 17:48 23:22 WBC RBC Hgb Hct MCV MCH MCHC RDW Plt Count Lymph % (Auto) Centre % (Auto) Lymph # Centre # Baso # Seg Neutrophils % Seg Neuts % (Manual) Lymphocytes % (Manual) Monocytes % (Manual) Eosinophils % (Manual) Basophils % (Manual) Nucleated RBC % Seg Neutrophils # Seg Neutrophils # Man Lymphocytes # (Manual) Monocytes # (Manual) Eosinophils # (Manual) PT INR Fibrinogen dRVVT Confirm Interp Factor V Activity POC ABG pH POC ABG pCO2 POC ABG pO2 Sodium Potassium Chloride Carbon Dioxide BUN Creatinine Glucose POC Glucose 164 H 186 H 195 H Lactic Acid Calcium Phosphorus Magnesium Direct Bilirubin ALT Alkaline Phosphatase Troponin T C-Reactive Protein Total Protein Albumin Triglycerides Cholesterol LDL Cholesterol Direct HDL Cholesterol Urine WBC (Auto) Urine Creatinine Urine Total Protein Vancomycin Trough Rheumatoid Factor Complement C4 Miscellaneous Test Crossmatch 09/06/16 09/06/16 09/06/16 04:12 05:59 07:32 WBC RBC Hgb Hct MCV MCH MCHC RDW Plt Count Lymph % (Auto) Centre % (Auto) Lymph # Centre # Baso # Seg Neutrophils % Seg Neuts % (Manual) Lymphocytes % (Manual) Monocytes % (Manual) Eosinophils % (Manual) Basophils % (Manual) Nucleated RBC % Seg Neutrophils # Seg Neutrophils # Man Lymphocytes # (Manual) Monocytes # (Manual) Eosinophils # (Manual) PT INR Fibrinogen dRVVT Confirm Interp Factor V Activity POC ABG pH 7.514 H POC ABG pCO2 29.1 L POC ABG pO2 72 L Sodium 133 L Potassium 3.4 L Chloride 94.9 L Carbon Dioxide 19 L BUN 30 H Creatinine 2.1 H Glucose 139 H POC Glucose 146 H Lactic Acid Calcium Phosphorus Magnesium Direct Bilirubin ALT Alkaline Phosphatase Troponin T C-Reactive Protein Total Protein Albumin Triglycerides Cholesterol LDL Cholesterol Direct HDL Cholesterol Urine WBC (Auto) Urine Creatinine Urine Total Protein Vancomycin Trough Rheumatoid Factor Complement C4 Miscellaneous Test Crossmatch 09/06/16 09/06/16 09/06/16 11:57 17:58 19:02 WBC RBC Hgb Hct MCV MCH MCHC RDW Plt Count Lymph % (Auto) Centre % (Auto) Lymph # Centre # Baso # Seg Neutrophils % Seg Neuts % (Manual) Lymphocytes % (Manual) Monocytes % (Manual) Eosinophils % (Manual) Basophils % (Manual) Nucleated RBC % Seg Neutrophils # Seg Neutrophils # Man Lymphocytes # (Manual) Monocytes # (Manual) Eosinophils # (Manual) PT INR Fibrinogen dRVVT Confirm Interp Factor V Activity POC ABG pH 7.465 H POC ABG pCO2 32.0 L POC ABG pO2 Sodium Potassium Chloride Carbon Dioxide BUN Creatinine Glucose POC Glucose 165 H 160 H Lactic Acid Calcium Phosphorus Magnesium Direct Bilirubin ALT Alkaline Phosphatase Troponin T C-Reactive Protein Total Protein Albumin Triglycerides Cholesterol LDL Cholesterol Direct HDL Cholesterol Urine WBC (Auto) Urine Creatinine Urine Total Protein Vancomycin Trough Rheumatoid Factor Complement C4 Miscellaneous Test Crossmatch 09/06/16 09/07/16 09/07/16 23:45 02:47 02:47 WBC RBC Hgb Hct MCV MCH MCHC RDW Plt Count Lymph % (Auto) Centre % (Auto) Lymph # Centre # Baso # Seg Neutrophils % Seg Neuts % (Manual) Lymphocytes % (Manual) Monocytes % (Manual) Eosinophils % (Manual) Basophils % (Manual) Nucleated RBC % Seg Neutrophils # Seg Neutrophils # Man Lymphocytes # (Manual) Monocytes # (Manual) Eosinophils # (Manual) PT INR Fibrinogen dRVVT Confirm Interp Factor V Activity POC ABG pH POC ABG pCO2 POC ABG pO2 Sodium Potassium Chloride Carbon Dioxide BUN Creatinine Glucose POC Glucose 204 H Lactic Acid Calcium Phosphorus Magnesium Direct Bilirubin ALT Alkaline Phosphatase Troponin T C-Reactive Protein Total Protein Albumin Triglycerides Cholesterol LDL Cholesterol Direct HDL Cholesterol Urine WBC (Auto) 68.0 H Urine Creatinine 106.1 H Urine Total Protein Vancomycin Trough Rheumatoid Factor Complement C4 Miscellaneous Test Crossmatch 09/07/16 09/07/16 09/07/16 04:50 06:19 06:39 WBC RBC Hgb Hct MCV MCH MCHC RDW Plt Count Lymph % (Auto) Centre % (Auto) Lymph # Centre # Baso # Seg Neutrophils % Seg Neuts % (Manual) Lymphocytes % (Manual) Monocytes % (Manual) Eosinophils % (Manual) Basophils % (Manual) Nucleated RBC % Seg Neutrophils # Seg Neutrophils # Man Lymphocytes # (Manual) Monocytes # (Manual) Eosinophils # (Manual) PT INR Fibrinogen dRVVT Confirm Interp Factor V Activity POC ABG pH 7.457 H POC ABG pCO2 32.1 L POC ABG pO2 76 L Sodium 132 L Potassium Chloride 94.7 L Carbon Dioxide BUN 53 H Creatinine 2.9 H Glucose 151 H POC Glucose 149 H Lactic Acid Calcium Phosphorus Magnesium Direct Bilirubin ALT Alkaline Phosphatase Troponin T C-Reactive Protein Total Protein Albumin Triglycerides Cholesterol LDL Cholesterol Direct HDL Cholesterol Urine WBC (Auto) Urine Creatinine Urine Total Protein Vancomycin Trough Rheumatoid Factor Complement C4 Miscellaneous Test Crossmatch 09/07/16 09/07/16 09/07/16 09:20 11:43 11:43 WBC 19.4 H RBC Hgb 8.3 L Hct 26.4 L D MCV 72 L D MCH 22 L MCHC RDW 17.9 H Plt Count Lymph % (Auto) 8.5 L Centre % (Auto) Lymph # Centre # 1.0 H Baso # Seg Neutrophils % 85.8 H Seg Neuts % (Manual) Lymphocytes % (Manual) Monocytes % (Manual) Eosinophils % (Manual) Basophils % (Manual) Nucleated RBC % Seg Neutrophils # 16.6 H Seg Neutrophils # Man Lymphocytes # (Manual) Monocytes # (Manual) Eosinophils # (Manual) PT INR Fibrinogen dRVVT Confirm Interp Factor V Activity POC ABG pH POC ABG pCO2 POC ABG pO2 Sodium 134 L Potassium Chloride 97.2 L Carbon Dioxide 20 L BUN 58 H Creatinine 2.9 H Glucose 147 H POC Glucose Lactic Acid Calcium Phosphorus 2.40 L Magnesium 2.40 H Direct Bilirubin ALT Alkaline Phosphatase Troponin T C-Reactive Protein Total Protein 5.8 L Albumin 2.2 L Triglycerides Cholesterol LDL Cholesterol Direct HDL Cholesterol Urine WBC (Auto) Urine Creatinine Urine Total Protein Vancomycin Trough Rheumatoid Factor Complement C4 58 H Miscellaneous Test Crossmatch 09/07/16 09/07/16 09/07/16 11:50 16:00 17:31 WBC RBC Hgb Hct MCV MCH MCHC RDW Plt Count Lymph % (Auto) Centre % (Auto) Lymph # Centre # Baso # Seg Neutrophils % Seg Neuts % (Manual) Lymphocytes % (Manual) Monocytes % (Manual) Eosinophils % (Manual) Basophils % (Manual) Nucleated RBC % Seg Neutrophils # Seg Neutrophils # Man Lymphocytes # (Manual) Monocytes # (Manual) Eosinophils # (Manual) PT INR Fibrinogen dRVVT Confirm Interp Factor V Activity POC ABG pH POC ABG pCO2 POC ABG pO2 158 H Sodium Potassium Chloride Carbon Dioxide BUN Creatinine Glucose POC Glucose 175 H Lactic Acid Calcium Phosphorus Magnesium Direct Bilirubin ALT Alkaline Phosphatase Troponin T C-Reactive Protein Total Protein Albumin Triglycerides Cholesterol LDL Cholesterol Direct HDL Cholesterol Urine WBC (Auto) Urine Creatinine 66.3 H Urine Total Protein Vancomycin Trough Rheumatoid Factor Complement C4 Miscellaneous Test Crossmatch 09/07/16 09/08/16 09/08/16 23:50 05:46 06:18 WBC 17.8 H RBC 3.58 L Hgb 8.1 L Hct 25.5 L MCV 71 L MCH 23 L MCHC RDW 18.4 H Plt Count Lymph % (Auto) Centre % (Auto) Lymph # Centre # Baso # Seg Neutrophils % Seg Neuts % (Manual) 92.0 H Lymphocytes % (Manual) 6.0 L Monocytes % (Manual) Eosinophils % (Manual) Basophils % (Manual) Nucleated RBC % Seg Neutrophils # Seg Neutrophils # Man 16.4 H Lymphocytes # (Manual) 1.1 L Monocytes # (Manual) Eosinophils # (Manual) PT INR Fibrinogen dRVVT Confirm Interp Factor V Activity POC ABG pH POC ABG pCO2 34.3 L POC ABG pO2 71 L Sodium Potassium Chloride Carbon Dioxide BUN Creatinine Glucose POC Glucose 216 H Lactic Acid Calcium Phosphorus Magnesium Direct Bilirubin ALT Alkaline Phosphatase Troponin T C-Reactive Protein Total Protein Albumin Triglycerides Cholesterol LDL Cholesterol Direct HDL Cholesterol Urine WBC (Auto) Urine Creatinine Urine Total Protein Vancomycin Trough Rheumatoid Factor Complement C4 Miscellaneous Test Crossmatch 09/08/16 09/08/16 09/08/16 06:18 06:51 10:55 WBC RBC Hgb Hct MCV MCH MCHC RDW Plt Count Lymph % (Auto) Centre % (Auto) Lymph # Centre # Baso # Seg Neutrophils % Seg Neuts % (Manual) Lymphocytes % (Manual) Monocytes % (Manual) Eosinophils % (Manual) Basophils % (Manual) Nucleated RBC % Seg Neutrophils # Seg Neutrophils # Man Lymphocytes # (Manual) Monocytes # (Manual) Eosinophils # (Manual) PT INR Fibrinogen dRVVT Confirm Interp Factor V Activity POC ABG pH POC ABG pCO2 POC ABG pO2 Sodium 133 L Potassium Chloride 96.9 L Carbon Dioxide 20 L BUN 63 H Creatinine 2.7 H Glucose 195 H POC Glucose 204 H 169 H Lactic Acid Calcium Phosphorus Magnesium Direct Bilirubin ALT Alkaline Phosphatase Troponin T C-Reactive Protein Total Protein Albumin Triglycerides Cholesterol LDL Cholesterol Direct HDL Cholesterol Urine WBC (Auto) Urine Creatinine Urine Total Protein Vancomycin Trough Rheumatoid Factor Complement C4 Miscellaneous Test Crossmatch 09/08/16 09/08/16 09/08/16 11:48 11:48 11:48 WBC RBC Hgb Hct MCV MCH MCHC RDW Plt Count Lymph % (Auto) Centre % (Auto) Lymph # Centre # Baso # Seg Neutrophils % Seg Neuts % (Manual) Lymphocytes % (Manual) Monocytes % (Manual) Eosinophils % (Manual) Basophils % (Manual) Nucleated RBC % Seg Neutrophils # Seg Neutrophils # Man Lymphocytes # (Manual) Monocytes # (Manual) Eosinophils # (Manual) PT INR Fibrinogen 750 H dRVVT Confirm Interp Factor V Activity POC ABG pH POC ABG pCO2 POC ABG pO2 Sodium Potassium Chloride Carbon Dioxide BUN Creatinine Glucose POC Glucose Lactic Acid Calcium Phosphorus Magnesium Direct Bilirubin ALT Alkaline Phosphatase Troponin T C-Reactive Protein 15.70 H Total Protein Albumin Triglycerides Cholesterol LDL Cholesterol Direct HDL Cholesterol Urine WBC (Auto) Urine Creatinine Urine Total Protein Vancomycin Trough Rheumatoid Factor 24 H Complement C4 Miscellaneous Test Crossmatch 09/08/16 09/08/16 09/09/16 15:35 18:25 00:24 WBC RBC Hgb Hct MCV MCH MCHC RDW Plt Count Lymph % (Auto) Centre % (Auto) Lymph # Centre # Baso # Seg Neutrophils % Seg Neuts % (Manual) Lymphocytes % (Manual) Monocytes % (Manual) Eosinophils % (Manual) Basophils % (Manual) Nucleated RBC % Seg Neutrophils # Seg Neutrophils # Man Lymphocytes # (Manual) Monocytes # (Manual) Eosinophils # (Manual) PT INR Fibrinogen dRVVT Confirm Interp Factor V Activity 182 H POC ABG pH POC ABG pCO2 POC ABG pO2 Sodium Potassium Chloride Carbon Dioxide BUN Creatinine Glucose POC Glucose 184 H 216 H Lactic Acid Calcium Phosphorus Magnesium Direct Bilirubin ALT Alkaline Phosphatase Troponin T C-Reactive Protein Total Protein Albumin Triglycerides Cholesterol LDL Cholesterol Direct HDL Cholesterol Urine WBC (Auto) Urine Creatinine Urine Total Protein Vancomycin Trough Rheumatoid Factor Complement C4 Miscellaneous Test Crossmatch 09/09/16 09/09/16 09/09/16 03:00 03:00 04:04 WBC 27.9 H RBC Hgb 8.7 L Hct 28.1 L MCV 72 L MCH 22 L MCHC RDW 18.4 H Plt Count 485 H Lymph % (Auto) Centre % (Auto) Lymph # Centre # Baso # Seg Neutrophils % Seg Neuts % (Manual) 77.0 H Lymphocytes % (Manual) 9.0 L Monocytes % (Manual) Eosinophils % (Manual) Basophils % (Manual) Nucleated RBC % Seg Neutrophils # Seg Neutrophils # Man 21.5 H Lymphocytes # (Manual) Monocytes # (Manual) 2.0 H Eosinophils # (Manual) PT INR Fibrinogen dRVVT Confirm Interp Factor V Activity POC ABG pH POC ABG pCO2 POC ABG pO2 121 H Sodium 135 L Potassium Chloride 96.3 L Carbon Dioxide 21 L BUN 83 H Creatinine 3.0 H Glucose 135 H POC Glucose Lactic Acid Calcium Phosphorus Magnesium Direct Bilirubin ALT Alkaline Phosphatase Troponin T C-Reactive Protein Total Protein Albumin Triglycerides Cholesterol LDL Cholesterol Direct HDL Cholesterol Urine WBC (Auto) Urine Creatinine Urine Total Protein Vancomycin Trough Rheumatoid Factor Complement C4 Miscellaneous Test Crossmatch 09/09/16 09/09/16 09/09/16 05:41 11:55 14:13 WBC RBC Hgb Hct MCV MCH MCHC RDW Plt Count Lymph % (Auto) Centre % (Auto) Lymph # Centre # Baso # Seg Neutrophils % Seg Neuts % (Manual) Lymphocytes % (Manual) Monocytes % (Manual) Eosinophils % (Manual) Basophils % (Manual) Nucleated RBC % Seg Neutrophils # Seg Neutrophils # Man Lymphocytes # (Manual) Monocytes # (Manual) Eosinophils # (Manual) PT INR Fibrinogen dRVVT Confirm Interp Factor V Activity POC ABG pH POC ABG pCO2 POC ABG pO2 Sodium Potassium Chloride Carbon Dioxide BUN Creatinine Glucose POC Glucose 155 H 186 H Lactic Acid Calcium Phosphorus Magnesium Direct Bilirubin ALT Alkaline Phosphatase Troponin T C-Reactive Protein Total Protein Albumin Triglycerides Cholesterol LDL Cholesterol Direct HDL Cholesterol Urine WBC (Auto) 25.0 H Urine Creatinine Urine Total Protein Vancomycin Trough Rheumatoid Factor Complement C4 Miscellaneous Test Crossmatch 09/09/16 09/09/16 09/10/16 17:33 23:13 05:09 WBC RBC Hgb Hct MCV MCH MCHC RDW Plt Count Lymph % (Auto) Centre % (Auto) Lymph # Centre # Baso # Seg Neutrophils % Seg Neuts % (Manual) Lymphocytes % (Manual) Monocytes % (Manual) Eosinophils % (Manual) Basophils % (Manual) Nucleated RBC % Seg Neutrophils # Seg Neutrophils # Man Lymphocytes # (Manual) Monocytes # (Manual) Eosinophils # (Manual) PT INR Fibrinogen dRVVT Confirm Interp Factor V Activity POC ABG pH POC ABG pCO2 POC ABG pO2 74 L Sodium Potassium Chloride Carbon Dioxide BUN Creatinine Glucose POC Glucose 211 H 215 H Lactic Acid Calcium Phosphorus Magnesium Direct Bilirubin ALT Alkaline Phosphatase Troponin T C-Reactive Protein Total Protein Albumin Triglycerides Cholesterol LDL Cholesterol Direct HDL Cholesterol Urine WBC (Auto) Urine Creatinine Urine Total Protein Vancomycin Trough Rheumatoid Factor Complement C4 Miscellaneous Test Crossmatch 09/10/16 09/10/16 09/10/16 05:17 05:17 11:31 WBC 15.8 H RBC 3.25 L Hgb 7.3 L Hct 22.9 L MCV 71 L MCH 23 L MCHC RDW 18.4 H Plt Count Lymph % (Auto) Centre % (Auto) Lymph # Centre # Baso # Seg Neutrophils % Seg Neuts % (Manual) 91.0 H Lymphocytes % (Manual) 4.0 L Monocytes % (Manual) Eosinophils % (Manual) Basophils % (Manual) Nucleated RBC % Seg Neutrophils # Seg Neutrophils # Man 14.4 H Lymphocytes # (Manual) 0.6 L Monocytes # (Manual) Eosinophils # (Manual) PT INR Fibrinogen dRVVT Confirm Interp Factor V Activity POC ABG pH POC ABG pCO2 POC ABG pO2 Sodium Potassium Chloride Carbon Dioxide 21 L BUN 93 H Creatinine 2.9 H Glucose 146 H POC Glucose 188 H Lactic Acid Calcium 8.1 L Phosphorus Magnesium Direct Bilirubin ALT Alkaline Phosphatase Troponin T C-Reactive Protein Total Protein Albumin Triglycerides Cholesterol LDL Cholesterol Direct HDL Cholesterol Urine WBC (Auto) Urine Creatinine Urine Total Protein Vancomycin Trough Rheumatoid Factor Complement C4 Miscellaneous Test Crossmatch 09/10/16 09/10/16 09/10/16 13:17 17:20 23:32 WBC RBC Hgb Hct MCV MCH MCHC RDW Plt Count Lymph % (Auto) Centre % (Auto) Lymph # Centre # Baso # Seg Neutrophils % Seg Neuts % (Manual) Lymphocytes % (Manual) Monocytes % (Manual) Eosinophils % (Manual) Basophils % (Manual) Nucleated RBC % Seg Neutrophils # Seg Neutrophils # Man Lymphocytes # (Manual) Monocytes # (Manual) Eosinophils # (Manual) PT INR Fibrinogen dRVVT Confirm Interp Factor V Activity POC ABG pH POC ABG pCO2 POC ABG pO2 Sodium Potassium Chloride Carbon Dioxide BUN Creatinine Glucose POC Glucose 199 H 186 H Lactic Acid Calcium Phosphorus Magnesium Direct Bilirubin ALT Alkaline Phosphatase Troponin T C-Reactive Protein Total Protein Albumin Triglycerides Cholesterol LDL Cholesterol Direct HDL Cholesterol Urine WBC (Auto) Urine Creatinine Urine Total Protein Vancomycin Trough Rheumatoid Factor Complement C4 Miscellaneous Test Crossmatch See Detail 09/11/16 09/11/16 09/11/16 05:10 05:10 05:17 WBC 28.4 H RBC Hgb 9.2 L Hct 29.3 L D MCV 73 L MCH 23 L MCHC RDW 18.9 H Plt Count 452 H Lymph % (Auto) Centre % (Auto) Lymph # Centre # Baso # Seg Neutrophils % Seg Neuts % (Manual) 89.5 H Lymphocytes % (Manual) 2.0 L Monocytes % (Manual) Eosinophils % (Manual) Basophils % (Manual) Nucleated RBC % Seg Neutrophils # Seg Neutrophils # Man 25.4 H Lymphocytes # (Manual) 0.6 L Monocytes # (Manual) 1.3 H Eosinophils # (Manual) PT INR Fibrinogen dRVVT Confirm Interp Factor V Activity POC ABG pH POC ABG pCO2 POC ABG pO2 Sodium 136 L Potassium Chloride Carbon Dioxide 18 L BUN 107 H Creatinine 2.6 H Glucose 187 H POC Glucose 230 H Lactic Acid Calcium 8.3 L Phosphorus Magnesium Direct Bilirubin ALT Alkaline Phosphatase Troponin T C-Reactive Protein Total Protein Albumin Triglycerides Cholesterol LDL Cholesterol Direct HDL Cholesterol Urine WBC (Auto) Urine Creatinine Urine Total Protein Vancomycin Trough Rheumatoid Factor Complement C4 Miscellaneous Test Crossmatch 09/11/16 09/11/16 09/11/16 05:55 12:02 17:32 WBC RBC Hgb Hct MCV MCH MCHC RDW Plt Count Lymph % (Auto) Centre % (Auto) Lymph # Centre # Baso # Seg Neutrophils % Seg Neuts % (Manual) Lymphocytes % (Manual) Monocytes % (Manual) Eosinophils % (Manual) Basophils % (Manual) Nucleated RBC % Seg Neutrophils # Seg Neutrophils # Man Lymphocytes # (Manual) Monocytes # (Manual) Eosinophils # (Manual) PT INR Fibrinogen dRVVT Confirm Interp Factor V Activity POC ABG pH POC ABG pCO2 33.8 L POC ABG pO2 Sodium Potassium Chloride Carbon Dioxide BUN Creatinine Glucose POC Glucose 191 H 239 H Lactic Acid Calcium Phosphorus Magnesium Direct Bilirubin ALT Alkaline Phosphatase Troponin T C-Reactive Protein Total Protein Albumin Triglycerides Cholesterol LDL Cholesterol Direct HDL Cholesterol Urine WBC (Auto) Urine Creatinine Urine Total Protein Vancomycin Trough Rheumatoid Factor Complement C4 Miscellaneous Test Crossmatch 09/11/16 09/12/16 09/12/16 23:52 05:09 05:32 WBC RBC Hgb Hct MCV MCH MCHC RDW Plt Count Lymph % (Auto) Centre % (Auto) Lymph # Centre # Baso # Seg Neutrophils % Seg Neuts % (Manual) Lymphocytes % (Manual) Monocytes % (Manual) Eosinophils % (Manual) Basophils % (Manual) Nucleated RBC % Seg Neutrophils # Seg Neutrophils # Man Lymphocytes # (Manual) Monocytes # (Manual) Eosinophils # (Manual) PT INR Fibrinogen dRVVT Confirm Interp Factor V Activity POC ABG pH POC ABG pCO2 34.6 L POC ABG pO2 Sodium Potassium Chloride Carbon Dioxide BUN Creatinine Glucose POC Glucose 265 H 184 H Lactic Acid Calcium Phosphorus Magnesium Direct Bilirubin ALT Alkaline Phosphatase Troponin T C-Reactive Protein Total Protein Albumin Triglycerides Cholesterol LDL Cholesterol Direct HDL Cholesterol Urine WBC (Auto) Urine Creatinine Urine Total Protein Vancomycin Trough Rheumatoid Factor Complement C4 Miscellaneous Test Crossmatch 09/12/16 09/12/16 09/12/16 06:45 06:45 07:22 WBC 31.7 H RBC 3.54 L Hgb 8.3 L Hct 25.9 L MCV 73 L MCH 23 L MCHC RDW 18.9 H Plt Count Lymph % (Auto) Centre % (Auto) Lymph # Centre # Baso # Seg Neutrophils % Seg Neuts % (Manual) 88.5 H Lymphocytes % (Manual) 4.5 L Monocytes % (Manual) Eosinophils % (Manual) Basophils % (Manual) Nucleated RBC % Seg Neutrophils # Seg Neutrophils # Man 28.1 H Lymphocytes # (Manual) Monocytes # (Manual) 1.0 H Eosinophils # (Manual) PT INR Fibrinogen dRVVT Confirm Interp Factor V Activity POC ABG pH POC ABG pCO2 POC ABG pO2 Sodium Potassium Chloride Carbon Dioxide 20 L BUN 115 H Creatinine 2.7 H Glucose 165 H POC Glucose Lactic Acid Calcium 8.0 L Phosphorus Magnesium Direct Bilirubin ALT Alkaline Phosphatase Troponin T C-Reactive Protein Total Protein Albumin Triglycerides 217 H Cholesterol LDL Cholesterol Direct HDL Cholesterol Urine WBC (Auto) Urine Creatinine Urine Total Protein Vancomycin Trough Rheumatoid Factor Complement C4 Miscellaneous Test Crossmatch 09/12/16 09/12/16 09/12/16 07:22 09:59 12:21 WBC RBC Hgb Hct MCV MCH MCHC RDW Plt Count Lymph % (Auto) Centre % (Auto) Lymph # Centre # Baso # Seg Neutrophils % Seg Neuts % (Manual) Lymphocytes % (Manual) Monocytes % (Manual) Eosinophils % (Manual) Basophils % (Manual) Nucleated RBC % Seg Neutrophils # Seg Neutrophils # Man Lymphocytes # (Manual) Monocytes # (Manual) Eosinophils # (Manual) PT INR Fibrinogen dRVVT Confirm Interp Positive H Factor V Activity POC ABG pH POC ABG pCO2 POC ABG pO2 Sodium Potassium Chloride Carbon Dioxide BUN Creatinine Glucose POC Glucose 224 H Lactic Acid Calcium Phosphorus Magnesium Direct Bilirubin ALT Alkaline Phosphatase Troponin T C-Reactive Protein 1.70 H Total Protein Albumin Triglycerides Cholesterol LDL Cholesterol Direct HDL Cholesterol Urine WBC (Auto) Urine Creatinine Urine Total Protein Vancomycin Trough Rheumatoid Factor Complement C4 Miscellaneous Test Crossmatch 09/12/16 09/12/16 09/13/16 16:51 23:28 04:00 WBC 45.0 H* RBC Hgb 9.4 L Hct MCV 75 L MCH 23 L MCHC RDW 19.0 H Plt Count 470 H Lymph % (Auto) Centre % (Auto) Lymph # Centre # Baso # Seg Neutrophils % Seg Neuts % (Manual) 89.0 H Lymphocytes % (Manual) 5.0 L Monocytes % (Manual) Eosinophils % (Manual) Basophils % (Manual) Nucleated RBC % Seg Neutrophils # Seg Neutrophils # Man 40.1 H Lymphocytes # (Manual) Monocytes # (Manual) Eosinophils # (Manual) PT INR Fibrinogen dRVVT Confirm Interp Factor V Activity POC ABG pH POC ABG pCO2 POC ABG pO2 Sodium Potassium Chloride Carbon Dioxide BUN Creatinine Glucose POC Glucose 169 H 150 H Lactic Acid Calcium Phosphorus Magnesium Direct Bilirubin ALT Alkaline Phosphatase Troponin T C-Reactive Protein Total Protein Albumin Triglycerides Cholesterol LDL Cholesterol Direct HDL Cholesterol Urine WBC (Auto) Urine Creatinine Urine Total Protein Vancomycin Trough Rheumatoid Factor Complement C4 Miscellaneous Test Crossmatch 09/13/16 09/13/16 09/13/16 04:00 11:26 17:31 WBC RBC Hgb Hct MCV MCH MCHC RDW Plt Count Lymph % (Auto) Centre % (Auto) Lymph # Centre # Baso # Seg Neutrophils % Seg Neuts % (Manual) Lymphocytes % (Manual) Monocytes % (Manual) Eosinophils % (Manual) Basophils % (Manual) Nucleated RBC % Seg Neutrophils # Seg Neutrophils # Man Lymphocytes # (Manual) Monocytes # (Manual) Eosinophils # (Manual) PT INR Fibrinogen dRVVT Confirm Interp Factor V Activity POC ABG pH POC ABG pCO2 POC ABG pO2 Sodium Potassium Chloride Carbon Dioxide 20 L BUN 116 H Creatinine 3.0 H Glucose 172 H POC Glucose 140 H 183 H Lactic Acid Calcium Phosphorus Magnesium Direct Bilirubin ALT Alkaline Phosphatase Troponin T C-Reactive Protein Total Protein 6.2 L Albumin 2.9 L Triglycerides Cholesterol LDL Cholesterol Direct HDL Cholesterol Urine WBC (Auto) Urine Creatinine Urine Total Protein Vancomycin Trough Rheumatoid Factor Complement C4 Miscellaneous Test Crossmatch 09/13/16 09/14/16 09/14/16 23:23 04:06 04:07 WBC 29.4 H RBC Hgb 8.9 L Hct 27.3 L MCV 75 L MCH 24 L MCHC RDW 19.1 H Plt Count Lymph % (Auto) Centre % (Auto) Lymph # Centre # Baso # Seg Neutrophils % Seg Neuts % (Manual) 84.0 H Lymphocytes % (Manual) 6.0 L Monocytes % (Manual) 9.0 H Eosinophils % (Manual) Basophils % (Manual) Nucleated RBC % Seg Neutrophils # Seg Neutrophils # Man 24.7 H Lymphocytes # (Manual) Monocytes # (Manual) 2.6 H Eosinophils # (Manual) PT INR Fibrinogen dRVVT Confirm Interp Factor V Activity POC ABG pH 7.342 L POC ABG pCO2 POC ABG pO2 116 H Sodium Potassium Chloride Carbon Dioxide BUN Creatinine Glucose POC Glucose 154 H Lactic Acid Calcium Phosphorus Magnesium Direct Bilirubin ALT Alkaline Phosphatase Troponin T C-Reactive Protein Total Protein Albumin Triglycerides Cholesterol LDL Cholesterol Direct HDL Cholesterol Urine WBC (Auto) Urine Creatinine Urine Total Protein Vancomycin Trough Rheumatoid Factor Complement C4 Miscellaneous Test Crossmatch 09/14/16 09/14/16 09/14/16 04:07 05:29 12:19 WBC RBC Hgb Hct MCV MCH MCHC RDW Plt Count Lymph % (Auto) Centre % (Auto) Lymph # Centre # Baso # Seg Neutrophils % Seg Neuts % (Manual) Lymphocytes % (Manual) Monocytes % (Manual) Eosinophils % (Manual) Basophils % (Manual) Nucleated RBC % Seg Neutrophils # Seg Neutrophils # Man Lymphocytes # (Manual) Monocytes # (Manual) Eosinophils # (Manual) PT INR Fibrinogen dRVVT Confirm Interp Factor V Activity POC ABG pH POC ABG pCO2 POC ABG pO2 Sodium 136 L Potassium Chloride Carbon Dioxide 18 L BUN 121 H Creatinine 2.8 H Glucose 214 H POC Glucose 239 H 181 H Lactic Acid Calcium Phosphorus Magnesium Direct Bilirubin ALT Alkaline Phosphatase Troponin T C-Reactive Protein Total Protein Albumin Triglycerides Cholesterol LDL Cholesterol Direct HDL Cholesterol Urine WBC (Auto) Urine Creatinine Urine Total Protein Vancomycin Trough Rheumatoid Factor Complement C4 Miscellaneous Test Crossmatch 09/14/16 09/14/16 09/15/16 18:12 23:37 05:00 WBC 26.1 H RBC 3.05 L Hgb 7.2 L Hct 22.9 L MCV 75 L MCH 24 L MCHC RDW 19.0 H Plt Count Lymph % (Auto) Centre % (Auto) Lymph # Centre # Baso # Seg Neutrophils % Seg Neuts % (Manual) Lymphocytes % (Manual) Monocytes % (Manual) Eosinophils % (Manual) Basophils % (Manual) Nucleated RBC % Seg Neutrophils # Seg Neutrophils # Man Lymphocytes # (Manual) Monocytes # (Manual) Eosinophils # (Manual) PT INR Fibrinogen dRVVT Confirm Interp Factor V Activity POC ABG pH POC ABG pCO2 POC ABG pO2 Sodium Potassium Chloride Carbon Dioxide BUN Creatinine Glucose POC Glucose 266 H 154 H Lactic Acid Calcium Phosphorus Magnesium Direct Bilirubin ALT Alkaline Phosphatase Troponin T C-Reactive Protein Total Protein Albumin Triglycerides Cholesterol LDL Cholesterol Direct HDL Cholesterol Urine WBC (Auto) Urine Creatinine Urine Total Protein Vancomycin Trough Rheumatoid Factor Complement C4 Miscellaneous Test Crossmatch 09/15/16 09/15/16 09/15/16 05:00 05:17 12:45 WBC RBC Hgb Hct MCV MCH MCHC RDW Plt Count Lymph % (Auto) Centre % (Auto) Lymph # Centre # Baso # Seg Neutrophils % Seg Neuts % (Manual) Lymphocytes % (Manual) Monocytes % (Manual) Eosinophils % (Manual) Basophils % (Manual) Nucleated RBC % Seg Neutrophils # Seg Neutrophils # Man Lymphocytes # (Manual) Monocytes # (Manual) Eosinophils # (Manual) PT INR Fibrinogen dRVVT Confirm Interp Factor V Activity POC ABG pH POC ABG pCO2 POC ABG pO2 Sodium Potassium 5.2 H Chloride Carbon Dioxide 18 L BUN 139 H Creatinine 3.7 H Glucose 227 H POC Glucose 226 H 244 H Lactic Acid Calcium 8.3 L Phosphorus Magnesium Direct Bilirubin ALT Alkaline Phosphatase Troponin T C-Reactive Protein Total Protein Albumin Triglycerides Cholesterol LDL Cholesterol Direct HDL Cholesterol Urine WBC (Auto) Urine Creatinine Urine Total Protein Vancomycin Trough Rheumatoid Factor Complement C4 Miscellaneous Test Crossmatch 09/15/16 09/15/16 09/15/16 14:32 17:33 23:35 WBC RBC Hgb Hct MCV MCH MCHC RDW Plt Count Lymph % (Auto) Centre % (Auto) Lymph # Centre # Baso # Seg Neutrophils % Seg Neuts % (Manual) Lymphocytes % (Manual) Monocytes % (Manual) Eosinophils % (Manual) Basophils % (Manual) Nucleated RBC % Seg Neutrophils # Seg Neutrophils # Man Lymphocytes # (Manual) Monocytes # (Manual) Eosinophils # (Manual) PT INR Fibrinogen dRVVT Confirm Interp Factor V Activity POC ABG pH POC ABG pCO2 27.7 L POC ABG pO2 120 H Sodium Potassium Chloride Carbon Dioxide BUN Creatinine Glucose POC Glucose 232 H 167 H Lactic Acid Calcium Phosphorus Magnesium Direct Bilirubin ALT Alkaline Phosphatase Troponin T C-Reactive Protein Total Protein Albumin Triglycerides Cholesterol LDL Cholesterol Direct HDL Cholesterol Urine WBC (Auto) Urine Creatinine Urine Total Protein Vancomycin Trough Rheumatoid Factor Complement C4 Miscellaneous Test Crossmatch 09/16/16 09/16/16 09/16/16 03:58 10:27 10:27 WBC 19.0 H RBC 2.77 L Hgb 6.5 L Hct 20.9 L MCV 76 L MCH 23 L MCHC RDW 19.3 H Plt Count Lymph % (Auto) 11.0 L Centre % (Auto) Lymph # Centre # 1.1 H Baso # Seg Neutrophils % 82.5 H Seg Neuts % (Manual) Lymphocytes % (Manual) Monocytes % (Manual) Eosinophils % (Manual) Basophils % (Manual) Nucleated RBC % Seg Neutrophils # 15.7 H Seg Neutrophils # Man Lymphocytes # (Manual) Monocytes # (Manual) Eosinophils # (Manual) PT INR Fibrinogen dRVVT Confirm Interp Factor V Activity POC ABG pH POC ABG pCO2 POC ABG pO2 Sodium Potassium Chloride 109.3 H Carbon Dioxide 18 L BUN 139 H Creatinine 4.1 H Glucose 144 H POC Glucose 146 H Lactic Acid Calcium 8.1 L Phosphorus Magnesium Direct Bilirubin ALT Alkaline Phosphatase Troponin T C-Reactive Protein Total Protein Albumin Triglycerides Cholesterol LDL Cholesterol Direct HDL Cholesterol Urine WBC (Auto) Urine Creatinine Urine Total Protein Vancomycin Trough Rheumatoid Factor Complement C4 Miscellaneous Test Crossmatch 09/16/16 09/16/16 09/16/16 12:04 12:10 13:55 WBC RBC Hgb Hct MCV MCH MCHC RDW Plt Count Lymph % (Auto) Centre % (Auto) Lymph # Centre # Baso # Seg Neutrophils % Seg Neuts % (Manual) Lymphocytes % (Manual) Monocytes % (Manual) Eosinophils % (Manual) Basophils % (Manual) Nucleated RBC % Seg Neutrophils # Seg Neutrophils # Man Lymphocytes # (Manual) Monocytes # (Manual) Eosinophils # (Manual) PT INR Fibrinogen dRVVT Confirm Interp Factor V Activity POC ABG pH POC ABG pCO2 32.9 L POC ABG pO2 Sodium Potassium Chloride Carbon Dioxide BUN Creatinine Glucose POC Glucose 185 H Lactic Acid Calcium Phosphorus Magnesium Direct Bilirubin ALT Alkaline Phosphatase Troponin T C-Reactive Protein Total Protein Albumin Triglycerides Cholesterol LDL Cholesterol Direct HDL Cholesterol Urine WBC (Auto) Urine Creatinine Urine Total Protein Vancomycin Trough Rheumatoid Factor Complement C4 Miscellaneous Test Crossmatch See Detail 09/16/16 09/16/16 09/16/16 17:55 19:19 23:48 WBC RBC Hgb Hct MCV MCH MCHC RDW Plt Count Lymph % (Auto) Centre % (Auto) Lymph # Centre # Baso # Seg Neutrophils % Seg Neuts % (Manual) Lymphocytes % (Manual) Monocytes % (Manual) Eosinophils % (Manual) Basophils % (Manual) Nucleated RBC % Seg Neutrophils # Seg Neutrophils # Man Lymphocytes # (Manual) Monocytes # (Manual) Eosinophils # (Manual) PT INR Fibrinogen dRVVT Confirm Interp Factor V Activity POC ABG pH POC ABG pCO2 POC ABG pO2 Sodium Potassium Chloride Carbon Dioxide BUN Creatinine Glucose POC Glucose 222 H 107 H Lactic Acid Calcium Phosphorus Magnesium Direct Bilirubin ALT Alkaline Phosphatase Troponin T C-Reactive Protein Total Protein Albumin Triglycerides Cholesterol LDL Cholesterol Direct HDL Cholesterol Urine WBC (Auto) Urine Creatinine 47.4 H Urine Total Protein 16 H Vancomycin Trough Rheumatoid Factor Complement C4 Miscellaneous Test Crossmatch 09/17/16 09/17/16 09/17/16 03:45 03:45 04:55 WBC 19.6 H RBC 3.41 L Hgb 8.5 L Hct 26.7 L MCV 78 L MCH 25 L MCHC RDW 19.9 H Plt Count Lymph % (Auto) 9.3 L Centre % (Auto) Lymph # Centre # 1.2 H Baso # Seg Neutrophils % 83.9 H Seg Neuts % (Manual) Lymphocytes % (Manual) Monocytes % (Manual) Eosinophils % (Manual) Basophils % (Manual) Nucleated RBC % Seg Neutrophils # 16.4 H Seg Neutrophils # Man Lymphocytes # (Manual) Monocytes # (Manual) Eosinophils # (Manual) PT INR Fibrinogen dRVVT Confirm Interp Factor V Activity POC ABG pH POC ABG pCO2 POC ABG pO2 Sodium 146 H Potassium 5.1 H Chloride 110.9 H Carbon Dioxide 16 L BUN 146 H Creatinine 4.0 H Glucose 108 H POC Glucose 133 H Lactic Acid Calcium Phosphorus Magnesium 3.00 H Direct Bilirubin ALT Alkaline Phosphatase Troponin T C-Reactive Protein Total Protein Albumin Triglycerides Cholesterol LDL Cholesterol Direct HDL Cholesterol Urine WBC (Auto) Urine Creatinine Urine Total Protein Vancomycin Trough Rheumatoid Factor Complement C4 Miscellaneous Test Crossmatch 09/17/16 09/17/16 09/17/16 11:15 17:33 23:47 WBC RBC Hgb Hct MCV MCH MCHC RDW Plt Count Lymph % (Auto) Centre % (Auto) Lymph # Centre # Baso # Seg Neutrophils % Seg Neuts % (Manual) Lymphocytes % (Manual) Monocytes % (Manual) Eosinophils % (Manual) Basophils % (Manual) Nucleated RBC % Seg Neutrophils # Seg Neutrophils # Man Lymphocytes # (Manual) Monocytes # (Manual) Eosinophils # (Manual) PT INR Fibrinogen dRVVT Confirm Interp Factor V Activity POC ABG pH POC ABG pCO2 POC ABG pO2 Sodium Potassium Chloride Carbon Dioxide BUN Creatinine Glucose POC Glucose 176 H 246 H 148 H Lactic Acid Calcium Phosphorus Magnesium Direct Bilirubin ALT Alkaline Phosphatase Troponin T C-Reactive Protein Total Protein Albumin Triglycerides Cholesterol LDL Cholesterol Direct HDL Cholesterol Urine WBC (Auto) Urine Creatinine Urine Total Protein Vancomycin Trough Rheumatoid Factor Complement C4 Miscellaneous Test Crossmatch 09/18/16 09/18/16 09/18/16 05:33 08:31 08:31 WBC 18.0 H RBC 3.17 L Hgb 9.0 L Hct 25.7 L MCV MCH MCHC 35 H RDW 20.4 H Plt Count Lymph % (Auto) Centre % (Auto) Lymph # Centre # Baso # Seg Neutrophils % Seg Neuts % (Manual) Lymphocytes % (Manual) Monocytes % (Manual) Eosinophils % (Manual) Basophils % (Manual) Nucleated RBC % Seg Neutrophils # Seg Neutrophils # Man Lymphocytes # (Manual) Monocytes # (Manual) Eosinophils # (Manual) PT INR Fibrinogen dRVVT Confirm Interp Factor V Activity POC ABG pH POC ABG pCO2 POC ABG pO2 Sodium Potassium Chloride Carbon Dioxide 15 L BUN 124 H Creatinine 3.8 H Glucose POC Glucose 120 H Lactic Acid Calcium 8.1 L Phosphorus Magnesium Direct Bilirubin ALT Alkaline Phosphatase Troponin T C-Reactive Protein Total Protein Albumin Triglycerides Cholesterol LDL Cholesterol Direct HDL Cholesterol Urine WBC (Auto) Urine Creatinine Urine Total Protein Vancomycin Trough Rheumatoid Factor Complement C4 Miscellaneous Test Crossmatch 09/18/16 09/18/16 09/18/16 12:03 15:34 17:50 WBC RBC Hgb Hct MCV MCH MCHC RDW Plt Count Lymph % (Auto) Centre % (Auto) Lymph # Centre # Baso # Seg Neutrophils % Seg Neuts % (Manual) Lymphocytes % (Manual) Monocytes % (Manual) Eosinophils % (Manual) Basophils % (Manual) Nucleated RBC % Seg Neutrophils # Seg Neutrophils # Man Lymphocytes # (Manual) Monocytes # (Manual) Eosinophils # (Manual) PT INR Fibrinogen dRVVT Confirm Interp Factor V Activity POC ABG pH POC ABG pCO2 25.7 L POC ABG pO2 66 L Sodium Potassium Chloride Carbon Dioxide BUN Creatinine Glucose POC Glucose 156 H 220 H Lactic Acid Calcium Phosphorus Magnesium Direct Bilirubin ALT Alkaline Phosphatase Troponin T C-Reactive Protein Total Protein Albumin Triglycerides Cholesterol LDL Cholesterol Direct HDL Cholesterol Urine WBC (Auto) Urine Creatinine Urine Total Protein Vancomycin Trough Rheumatoid Factor Complement C4 Miscellaneous Test Crossmatch 09/19/16 09/19/16 09/19/16 06:21 09:50 09:50 WBC 17.1 H RBC 3.49 L Hgb 9.0 L Hct 28.1 L MCV MCH 26 L MCHC RDW 20.8 H Plt Count Lymph % (Auto) 11.5 L Centre % (Auto) 7.5 H Lymph # Centre # 1.3 H Baso # Seg Neutrophils % 79.8 H Seg Neuts % (Manual) Lymphocytes % (Manual) Monocytes % (Manual) Eosinophils % (Manual) Basophils % (Manual) Nucleated RBC % Seg Neutrophils # 13.7 H Seg Neutrophils # Man Lymphocytes # (Manual) Monocytes # (Manual) Eosinophils # (Manual) PT INR Fibrinogen dRVVT Confirm Interp Factor V Activity POC ABG pH POC ABG pCO2 POC ABG pO2 Sodium Potassium Chloride 108.6 H Carbon Dioxide 15 L BUN 125 H Creatinine 4.1 H Glucose 124 H POC Glucose 119 H Lactic Acid Calcium Phosphorus Magnesium Direct Bilirubin ALT Alkaline Phosphatase Troponin T C-Reactive Protein Total Protein Albumin Triglycerides Cholesterol LDL Cholesterol Direct HDL Cholesterol Urine WBC (Auto) Urine Creatinine Urine Total Protein Vancomycin Trough Rheumatoid Factor Complement C4 Miscellaneous Test Crossmatch 09/19/16 09/19/16 09/19/16 11:25 17:53 23:36 WBC RBC Hgb Hct MCV MCH MCHC RDW Plt Count Lymph % (Auto) Centre % (Auto) Lymph # Centre # Baso # Seg Neutrophils % Seg Neuts % (Manual) Lymphocytes % (Manual) Monocytes % (Manual) Eosinophils % (Manual) Basophils % (Manual) Nucleated RBC % Seg Neutrophils # Seg Neutrophils # Man Lymphocytes # (Manual) Monocytes # (Manual) Eosinophils # (Manual) PT INR Fibrinogen dRVVT Confirm Interp Factor V Activity POC ABG pH POC ABG pCO2 POC ABG pO2 Sodium Potassium Chloride Carbon Dioxide BUN Creatinine Glucose POC Glucose 160 H 245 H 121 H Lactic Acid Calcium Phosphorus Magnesium Direct Bilirubin ALT Alkaline Phosphatase Troponin T C-Reactive Protein Total Protein Albumin Triglycerides Cholesterol LDL Cholesterol Direct HDL Cholesterol Urine WBC (Auto) Urine Creatinine Urine Total Protein Vancomycin Trough Rheumatoid Factor Complement C4 Miscellaneous Test Crossmatch 09/20/16 09/20/16 09/20/16 04:10 04:10 04:10 WBC 17.0 H RBC 3.21 L Hgb 8.2 L Hct 25.5 L MCV MCH 26 L MCHC RDW 20.9 H Plt Count Lymph % (Auto) Centre % (Auto) Lymph # Centre # Baso # Seg Neutrophils % Seg Neuts % (Manual) Lymphocytes % (Manual) Monocytes % (Manual) Eosinophils % (Manual) Basophils % (Manual) Nucleated RBC % Seg Neutrophils # Seg Neutrophils # Man Lymphocytes # (Manual) Monocytes # (Manual) Eosinophils # (Manual) PT INR Fibrinogen dRVVT Confirm Interp Factor V Activity POC ABG pH POC ABG pCO2 POC ABG pO2 Sodium Potassium Chloride 111.0 H Carbon Dioxide 16 L BUN 129 H Creatinine 3.7 H Glucose 115 H POC Glucose Lactic Acid Calcium 8.2 L Phosphorus Magnesium Direct Bilirubin ALT Alkaline Phosphatase Troponin T C-Reactive Protein Total Protein Albumin Triglycerides 243 H Cholesterol LDL Cholesterol Direct HDL Cholesterol Urine WBC (Auto) Urine Creatinine Urine Total Protein Vancomycin Trough Rheumatoid Factor Complement C4 Miscellaneous Test Crossmatch 09/20/16 09/20/16 09/20/16 05:40 11:52 16:50 WBC RBC Hgb Hct MCV MCH MCHC RDW Plt Count Lymph % (Auto) Centre % (Auto) Lymph # Centre # Baso # Seg Neutrophils % Seg Neuts % (Manual) Lymphocytes % (Manual) Monocytes % (Manual) Eosinophils % (Manual) Basophils % (Manual) Nucleated RBC % Seg Neutrophils # Seg Neutrophils # Man Lymphocytes # (Manual) Monocytes # (Manual) Eosinophils # (Manual) PT INR Fibrinogen dRVVT Confirm Interp Factor V Activity POC ABG pH POC ABG pCO2 POC ABG pO2 Sodium Potassium Chloride Carbon Dioxide BUN Creatinine Glucose POC Glucose 131 H 183 H 236 H Lactic Acid Calcium Phosphorus Magnesium Direct Bilirubin ALT Alkaline Phosphatase Troponin T C-Reactive Protein Total Protein Albumin Triglycerides Cholesterol LDL Cholesterol Direct HDL Cholesterol Urine WBC (Auto) Urine Creatinine Urine Total Protein Vancomycin Trough Rheumatoid Factor Complement C4 Miscellaneous Test Crossmatch 09/20/16 09/21/16 09/21/16 23:51 03:30 04:44 WBC RBC Hgb Hct MCV MCH MCHC RDW Plt Count Lymph % (Auto) Centre % (Auto) Lymph # Centre # Baso # Seg Neutrophils % Seg Neuts % (Manual) Lymphocytes % (Manual) Monocytes % (Manual) Eosinophils % (Manual) Basophils % (Manual) Nucleated RBC % Seg Neutrophils # Seg Neutrophils # Man Lymphocytes # (Manual) Monocytes # (Manual) Eosinophils # (Manual) PT INR Fibrinogen dRVVT Confirm Interp Factor V Activity POC ABG pH POC ABG pCO2 POC ABG pO2 Sodium Potassium Chloride Carbon Dioxide BUN Creatinine Glucose POC Glucose 114 H 141 H Lactic Acid Calcium Phosphorus Magnesium 2.70 H Direct Bilirubin ALT Alkaline Phosphatase Troponin T C-Reactive Protein Total Protein Albumin Triglycerides Cholesterol LDL Cholesterol Direct HDL Cholesterol Urine WBC (Auto) Urine Creatinine Urine Total Protein Vancomycin Trough Rheumatoid Factor Complement C4 Miscellaneous Test Crossmatch 09/21/16 09/21/16 09/21/16 07:45 07:45 10:01 WBC 13.8 H RBC 2.94 L Hgb 7.5 L Hct 23.5 L MCV MCH 26 L MCHC RDW 21.2 H Plt Count Lymph % (Auto) 6.9 L Centre % (Auto) 9.4 H Lymph # 0.9 L Centre # 1.3 H Baso # Seg Neutrophils % 83.2 H Seg Neuts % (Manual) Lymphocytes % (Manual) Monocytes % (Manual) Eosinophils % (Manual) Basophils % (Manual) Nucleated RBC % Seg Neutrophils # 11.5 H Seg Neutrophils # Man Lymphocytes # (Manual) Monocytes # (Manual) Eosinophils # (Manual) PT INR Fibrinogen dRVVT Confirm Interp Factor V Activity POC ABG pH 7.308 L POC ABG pCO2 31.9 L POC ABG pO2 148 H Sodium 147 H Potassium Chloride 114.2 H Carbon Dioxide 15 L BUN 120 H Creatinine 3.9 H Glucose 156 H POC Glucose Lactic Acid Calcium 8.2 L Phosphorus Magnesium Direct Bilirubin ALT Alkaline Phosphatase Troponin T C-Reactive Protein Total Protein Albumin Triglycerides Cholesterol LDL Cholesterol Direct HDL Cholesterol Urine WBC (Auto) Urine Creatinine Urine Total Protein Vancomycin Trough Rheumatoid Factor Complement C4 Miscellaneous Test Crossmatch 09/21/16 09/21/16 09/21/16 12:00 12:03 13:00 WBC RBC Hgb Hct MCV MCH MCHC RDW Plt Count Lymph % (Auto) Centre % (Auto) Lymph # Centre # Baso # Seg Neutrophils % Seg Neuts % (Manual) Lymphocytes % (Manual) Monocytes % (Manual) Eosinophils % (Manual) Basophils % (Manual) Nucleated RBC % Seg Neutrophils # Seg Neutrophils # Man Lymphocytes # (Manual) Monocytes # (Manual) Eosinophils # (Manual) PT INR Fibrinogen dRVVT Confirm Interp Factor V Activity POC ABG pH POC ABG pCO2 POC ABG pO2 Sodium Potassium Chloride Carbon Dioxide BUN Creatinine Glucose POC Glucose 163 H Lactic Acid Calcium Phosphorus Magnesium Direct Bilirubin ALT Alkaline Phosphatase Troponin T C-Reactive Protein Total Protein Albumin Triglycerides Cholesterol LDL Cholesterol Direct HDL Cholesterol Urine WBC (Auto) Urine Creatinine 54.8 H Urine Total Protein Vancomycin Trough 2.3 L Rheumatoid Factor Complement C4 Miscellaneous Test Crossmatch 09/21/16 09/21/16 09/22/16 16:51 23:17 06:27 WBC RBC Hgb Hct MCV MCH MCHC RDW Plt Count Lymph % (Auto) Centre % (Auto) Lymph # Centre # Baso # Seg Neutrophils % Seg Neuts % (Manual) Lymphocytes % (Manual) Monocytes % (Manual) Eosinophils % (Manual) Basophils % (Manual) Nucleated RBC % Seg Neutrophils # Seg Neutrophils # Man Lymphocytes # (Manual) Monocytes # (Manual) Eosinophils # (Manual) PT INR Fibrinogen dRVVT Confirm Interp Factor V Activity POC ABG pH POC ABG pCO2 POC ABG pO2 Sodium Potassium Chloride Carbon Dioxide BUN Creatinine Glucose POC Glucose 206 H 114 H 115 H Lactic Acid Calcium Phosphorus Magnesium Direct Bilirubin ALT Alkaline Phosphatase Troponin T C-Reactive Protein Total Protein Albumin Triglycerides Cholesterol LDL Cholesterol Direct HDL Cholesterol Urine WBC (Auto) Urine Creatinine Urine Total Protein Vancomycin Trough Rheumatoid Factor Complement C4 Miscellaneous Test Crossmatch 09/22/16 09/22/16 09/22/16 07:50 07:50 12:00 WBC 17.8 H RBC 3.04 L Hgb 8.0 L Hct 24.7 L MCV MCH 26 L MCHC RDW 21.6 H Plt Count Lymph % (Auto) Centre % (Auto) Lymph # Centre # Baso # Seg Neutrophils % Seg Neuts % (Manual) Lymphocytes % (Manual) Monocytes % (Manual) Eosinophils % (Manual) Basophils % (Manual) Nucleated RBC % Seg Neutrophils # Seg Neutrophils # Man Lymphocytes # (Manual) Monocytes # (Manual) Eosinophils # (Manual) PT INR Fibrinogen dRVVT Confirm Interp Factor V Activity POC ABG pH POC ABG pCO2 POC ABG pO2 Sodium 150 H Potassium Chloride 118.2 H Carbon Dioxide 14 L BUN 111 H Creatinine 3.7 H Glucose 157 H POC Glucose 183 H Lactic Acid Calcium Phosphorus Magnesium Direct Bilirubin ALT Alkaline Phosphatase Troponin T C-Reactive Protein Total Protein Albumin Triglycerides Cholesterol LDL Cholesterol Direct HDL Cholesterol Urine WBC (Auto) Urine Creatinine Urine Total Protein Vancomycin Trough Rheumatoid Factor Complement C4 Miscellaneous Test Crossmatch 09/22/16 09/22/16 09/23/16 17:29 23:10 05:00 WBC 19.2 H RBC 3.13 L Hgb 8.0 L Hct 25.2 L MCV MCH 26 L MCHC RDW 22.1 H Plt Count Lymph % (Auto) Centre % (Auto) Lymph # Centre # Baso # Seg Neutrophils % Seg Neuts % (Manual) 92.0 H Lymphocytes % (Manual) 3.0 L Monocytes % (Manual) Eosinophils % (Manual) Basophils % (Manual) Nucleated RBC % Seg Neutrophils # Seg Neutrophils # Man 17.7 H Lymphocytes # (Manual) 0.6 L Monocytes # (Manual) Eosinophils # (Manual) PT INR Fibrinogen dRVVT Confirm Interp Factor V Activity POC ABG pH POC ABG pCO2 POC ABG pO2 Sodium Potassium Chloride Carbon Dioxide BUN Creatinine Glucose POC Glucose 197 H 169 H Lactic Acid Calcium Phosphorus Magnesium Direct Bilirubin ALT Alkaline Phosphatase Troponin T C-Reactive Protein Total Protein Albumin Triglycerides Cholesterol LDL Cholesterol Direct HDL Cholesterol Urine WBC (Auto) Urine Creatinine Urine Total Protein Vancomycin Trough Rheumatoid Factor Complement C4 Miscellaneous Test Crossmatch 09/23/16 09/23/16 09/23/16 05:00 05:00 05:10 WBC RBC Hgb Hct MCV MCH MCHC RDW Plt Count Lymph % (Auto) Centre % (Auto) Lymph # Centre # Baso # Seg Neutrophils % Seg Neuts % (Manual) Lymphocytes % (Manual) Monocytes % (Manual) Eosinophils % (Manual) Basophils % (Manual) Nucleated RBC % Seg Neutrophils # Seg Neutrophils # Man Lymphocytes # (Manual) Monocytes # (Manual) Eosinophils # (Manual) PT INR Fibrinogen dRVVT Confirm Interp Factor V Activity POC ABG pH POC ABG pCO2 POC ABG pO2 Sodium 147 H Potassium 3.2 L Chloride 115.7 H Carbon Dioxide 13 L BUN 111 H Creatinine 3.8 H Glucose 194 H POC Glucose 188 H Lactic Acid Calcium 7.3 L D Phosphorus Magnesium Direct Bilirubin ALT Alkaline Phosphatase Troponin T C-Reactive Protein 3.20 H Total Protein Albumin Triglycerides Cholesterol LDL Cholesterol Direct HDL Cholesterol Urine WBC (Auto) Urine Creatinine Urine Total Protein Vancomycin Trough Rheumatoid Factor Complement C4 Miscellaneous Test Crossmatch 09/23/16 09/23/16 09/23/16 11:37 12:29 18:01 WBC RBC Hgb Hct MCV MCH MCHC RDW Plt Count Lymph % (Auto) Centre % (Auto) Lymph # Centre # Baso # Seg Neutrophils % Seg Neuts % (Manual) Lymphocytes % (Manual) Monocytes % (Manual) Eosinophils % (Manual) Basophils % (Manual) Nucleated RBC % Seg Neutrophils # Seg Neutrophils # Man Lymphocytes # (Manual) Monocytes # (Manual) Eosinophils # (Manual) PT INR Fibrinogen dRVVT Confirm Interp Factor V Activity POC ABG pH POC ABG pCO2 18.9 L POC ABG pO2 143 H Sodium Potassium Chloride Carbon Dioxide BUN Creatinine Glucose POC Glucose 153 H 108 H Lactic Acid Calcium Phosphorus Magnesium Direct Bilirubin ALT Alkaline Phosphatase Troponin T C-Reactive Protein Total Protein Albumin Triglycerides Cholesterol LDL Cholesterol Direct HDL Cholesterol Urine WBC (Auto) Urine Creatinine Urine Total Protein Vancomycin Trough Rheumatoid Factor Complement C4 Miscellaneous Test Crossmatch 09/23/16 09/23/16 09/24/16 21:19 23:43 05:16 WBC RBC Hgb Hct MCV MCH MCHC RDW Plt Count Lymph % (Auto) Centre % (Auto) Lymph # Centre # Baso # Seg Neutrophils % Seg Neuts % (Manual) Lymphocytes % (Manual) Monocytes % (Manual) Eosinophils % (Manual) Basophils % (Manual) Nucleated RBC % Seg Neutrophils # Seg Neutrophils # Man Lymphocytes # (Manual) Monocytes # (Manual) Eosinophils # (Manual) PT INR Fibrinogen dRVVT Confirm Interp Factor V Activity POC ABG pH POC ABG pCO2 17.3 L POC ABG pO2 112 H Sodium Potassium Chloride Carbon Dioxide BUN Creatinine Glucose POC Glucose 143 H 164 H Lactic Acid Calcium Phosphorus Magnesium Direct Bilirubin ALT Alkaline Phosphatase Troponin T C-Reactive Protein Total Protein Albumin Triglycerides Cholesterol LDL Cholesterol Direct HDL Cholesterol Urine WBC (Auto) Urine Creatinine Urine Total Protein Vancomycin Trough Rheumatoid Factor Complement C4 Miscellaneous Test Crossmatch 09/24/16 09/24/16 09/24/16 05:21 11:58 17:06 WBC RBC Hgb Hct MCV MCH MCHC RDW Plt Count Lymph % (Auto) Centre % (Auto) Lymph # Centre # Baso # Seg Neutrophils % Seg Neuts % (Manual) Lymphocytes % (Manual) Monocytes % (Manual) Eosinophils % (Manual) Basophils % (Manual) Nucleated RBC % Seg Neutrophils # Seg Neutrophils # Man Lymphocytes # (Manual) Monocytes # (Manual) Eosinophils # (Manual) PT INR Fibrinogen dRVVT Confirm Interp Factor V Activity POC ABG pH POC ABG pCO2 POC ABG pO2 Sodium Potassium Chloride Carbon Dioxide 10 L BUN 103 H Creatinine 4.3 H Glucose 163 H POC Glucose 173 H 167 H Lactic Acid Calcium 6.5 L Phosphorus Magnesium Direct Bilirubin ALT Alkaline Phosphatase Troponin T C-Reactive Protein Total Protein Albumin Triglycerides Cholesterol LDL Cholesterol Direct HDL Cholesterol Urine WBC (Auto) Urine Creatinine Urine Total Protein Vancomycin Trough Rheumatoid Factor Complement C4 Miscellaneous Test Crossmatch 09/24/16 09/24/16 09/24/16 20:15 21:02 23:48 WBC RBC Hgb Hct MCV MCH MCHC RDW Plt Count Lymph % (Auto) Centre % (Auto) Lymph # Centre # Baso # Seg Neutrophils % Seg Neuts % (Manual) Lymphocytes % (Manual) Monocytes % (Manual) Eosinophils % (Manual) Basophils % (Manual) Nucleated RBC % Seg Neutrophils # Seg Neutrophils # Man Lymphocytes # (Manual) Monocytes # (Manual) Eosinophils # (Manual) PT INR Fibrinogen dRVVT Confirm Interp Factor V Activity POC ABG pH 7.288 L POC ABG pCO2 30.2 L 21.5 L POC ABG pO2 32 L 39 L Sodium Potassium Chloride Carbon Dioxide BUN Creatinine Glucose POC Glucose 109 H Lactic Acid Calcium Phosphorus Magnesium Direct Bilirubin ALT Alkaline Phosphatase Troponin T C-Reactive Protein Total Protein Albumin Triglycerides Cholesterol LDL Cholesterol Direct HDL Cholesterol Urine WBC (Auto) Urine Creatinine Urine Total Protein Vancomycin Trough Rheumatoid Factor Complement C4 Miscellaneous Test Crossmatch 09/25/16 09/25/16 09/25/16 04:20 04:20 04:20 WBC RBC 2.58 L Hgb 7.0 L Hct 21.0 L MCV MCH 27 L MCHC RDW 23.8 H Plt Count Lymph % (Auto) Centre % (Auto) Lymph # Centre # Baso # Seg Neutrophils % Seg Neuts % (Manual) Lymphocytes % (Manual) 12.0 L Monocytes % (Manual) Eosinophils % (Manual) 7.0 H Basophils % (Manual) 2.0 H Nucleated RBC % Seg Neutrophils # Seg Neutrophils # Man Lymphocytes # (Manual) 0.9 L Monocytes # (Manual) Eosinophils # (Manual) 0.5 H PT INR Fibrinogen dRVVT Confirm Interp Factor V Activity POC ABG pH POC ABG pCO2 POC ABG pO2 Sodium Potassium Chloride Carbon Dioxide 15 L BUN 72 H Creatinine 3.8 H Glucose POC Glucose Lactic Acid Calcium 6.0 L Phosphorus 4.60 H Magnesium 1.60 L Direct Bilirubin ALT Alkaline Phosphatase Troponin T C-Reactive Protein Total Protein Albumin Triglycerides Cholesterol LDL Cholesterol Direct HDL Cholesterol Urine WBC (Auto) Urine Creatinine Urine Total Protein Vancomycin Trough Rheumatoid Factor Complement C4 Miscellaneous Test Crossmatch 09/25/16 09/25/16 09/25/16 04:57 08:02 10:30 WBC RBC Hgb Hct MCV MCH MCHC RDW Plt Count Lymph % (Auto) Centre % (Auto) Lymph # Centre # Baso # Seg Neutrophils % Seg Neuts % (Manual) Lymphocytes % (Manual) Monocytes % (Manual) Eosinophils % (Manual) Basophils % (Manual) Nucleated RBC % Seg Neutrophils # Seg Neutrophils # Man Lymphocytes # (Manual) Monocytes # (Manual) Eosinophils # (Manual) PT INR Fibrinogen dRVVT Confirm Interp Factor V Activity POC ABG pH POC ABG pCO2 24.7 L POC ABG pO2 152 H Sodium Potassium Chloride Carbon Dioxide BUN Creatinine Glucose POC Glucose 113 H Lactic Acid Calcium Phosphorus Magnesium Direct Bilirubin ALT Alkaline Phosphatase Troponin T C-Reactive Protein Total Protein Albumin Triglycerides Cholesterol LDL Cholesterol Direct HDL Cholesterol Urine WBC (Auto) Urine Creatinine Urine Total Protein Vancomycin Trough Rheumatoid Factor Complement C4 Miscellaneous Test Crossmatch See Detail 09/25/16 09/25/16 09/25/16 12:05 17:44 23:47 WBC RBC Hgb Hct MCV MCH MCHC RDW Plt Count Lymph % (Auto) Centre % (Auto) Lymph # Centre # Baso # Seg Neutrophils % Seg Neuts % (Manual) Lymphocytes % (Manual) Monocytes % (Manual) Eosinophils % (Manual) Basophils % (Manual) Nucleated RBC % Seg Neutrophils # Seg Neutrophils # Man Lymphocytes # (Manual) Monocytes # (Manual) Eosinophils # (Manual) PT INR Fibrinogen dRVVT Confirm Interp Factor V Activity POC ABG pH POC ABG pCO2 POC ABG pO2 Sodium Potassium Chloride Carbon Dioxide BUN Creatinine Glucose POC Glucose 117 H 119 H 150 H Lactic Acid Calcium Phosphorus Magnesium Direct Bilirubin ALT Alkaline Phosphatase Troponin T C-Reactive Protein Total Protein Albumin Triglycerides Cholesterol LDL Cholesterol Direct HDL Cholesterol Urine WBC (Auto) Urine Creatinine Urine Total Protein Vancomycin Trough Rheumatoid Factor Complement C4 Miscellaneous Test Crossmatch 09/26/16 09/26/16 09/26/16 04:25 04:25 04:25 WBC RBC 2.65 L Hgb 7.4 L Hct 21.6 L MCV MCH MCHC RDW 22.5 H Plt Count Lymph % (Auto) Centre % (Auto) Lymph # Centre # Baso # Seg Neutrophils % Seg Neuts % (Manual) Lymphocytes % (Manual) 6.0 L Monocytes % (Manual) Eosinophils % (Manual) 11.0 H Basophils % (Manual) Nucleated RBC % Seg Neutrophils # Seg Neutrophils # Man Lymphocytes # (Manual) 0.4 L Monocytes # (Manual) Eosinophils # (Manual) 0.6 H PT INR Fibrinogen dRVVT Confirm Interp Factor V Activity POC ABG pH POC ABG pCO2 POC ABG pO2 Sodium Potassium Chloride 97.0 L Carbon Dioxide 19 L BUN 43 H Creatinine 2.6 H Glucose 130 H POC Glucose Lactic Acid 4.40 H* Calcium 6.7 L Phosphorus Magnesium Direct Bilirubin ALT Alkaline Phosphatase Troponin T C-Reactive Protein Total Protein Albumin Triglycerides Cholesterol LDL Cholesterol Direct HDL Cholesterol Urine WBC (Auto) Urine Creatinine Urine Total Protein Vancomycin Trough Rheumatoid Factor Complement C4 Miscellaneous Test Crossmatch 09/26/16 09/26/16 09/26/16 05:20 11:44 12:12 WBC RBC Hgb Hct MCV MCH MCHC RDW Plt Count Lymph % (Auto) Centre % (Auto) Lymph # Centre # Baso # Seg Neutrophils % Seg Neuts % (Manual) Lymphocytes % (Manual) Monocytes % (Manual) Eosinophils % (Manual) Basophils % (Manual) Nucleated RBC % Seg Neutrophils # Seg Neutrophils # Man Lymphocytes # (Manual) Monocytes # (Manual) Eosinophils # (Manual) PT INR Fibrinogen dRVVT Confirm Interp Factor V Activity POC ABG pH POC ABG pCO2 27.0 L POC ABG pO2 69 L Sodium Potassium Chloride Carbon Dioxide BUN Creatinine Glucose POC Glucose 121 H 128 H Lactic Acid Calcium Phosphorus Magnesium Direct Bilirubin ALT Alkaline Phosphatase Troponin T C-Reactive Protein Total Protein Albumin Triglycerides Cholesterol LDL Cholesterol Direct HDL Cholesterol Urine WBC (Auto) Urine Creatinine Urine Total Protein Vancomycin Trough Rheumatoid Factor Complement C4 Miscellaneous Test Crossmatch 09/26/16 09/26/16 09/27/16 18:31 23:40 08:20 WBC RBC Hgb Hct MCV MCH MCHC RDW Plt Count Lymph % (Auto) Centre % (Auto) Lymph # Centre # Baso # Seg Neutrophils % Seg Neuts % (Manual) Lymphocytes % (Manual) Monocytes % (Manual) Eosinophils % (Manual) Basophils % (Manual) Nucleated RBC % Seg Neutrophils # Seg Neutrophils # Man Lymphocytes # (Manual) Monocytes # (Manual) Eosinophils # (Manual) PT INR Fibrinogen dRVVT Confirm Interp Factor V Activity POC ABG pH POC ABG pCO2 POC ABG pO2 Sodium Potassium Chloride Carbon Dioxide BUN Creatinine Glucose POC Glucose 120 H 133 H Lactic Acid 4.10 H* Calcium Phosphorus Magnesium Direct Bilirubin ALT Alkaline Phosphatase Troponin T C-Reactive Protein Total Protein Albumin Triglycerides Cholesterol LDL Cholesterol Direct HDL Cholesterol Urine WBC (Auto) Urine Creatinine Urine Total Protein Vancomycin Trough Rheumatoid Factor Complement C4 Miscellaneous Test Crossmatch 09/27/16 09/27/16 09/27/16 11:23 15:00 18:15 WBC RBC Hgb Hct MCV MCH MCHC RDW Plt Count Lymph % (Auto) Centre % (Auto) Lymph # Centre # Baso # Seg Neutrophils % Seg Neuts % (Manual) Lymphocytes % (Manual) Monocytes % (Manual) Eosinophils % (Manual) Basophils % (Manual) Nucleated RBC % Seg Neutrophils # Seg Neutrophils # Man Lymphocytes # (Manual) Monocytes # (Manual) Eosinophils # (Manual) PT INR Fibrinogen dRVVT Confirm Interp Factor V Activity POC ABG pH 7.459 H POC ABG pCO2 27.1 L POC ABG pO2 140 H Sodium Potassium Chloride Carbon Dioxide BUN Creatinine Glucose POC Glucose 114 H 127 H Lactic Acid Calcium Phosphorus Magnesium Direct Bilirubin ALT Alkaline Phosphatase Troponin T C-Reactive Protein Total Protein Albumin Triglycerides Cholesterol LDL Cholesterol Direct HDL Cholesterol Urine WBC (Auto) Urine Creatinine Urine Total Protein Vancomycin Trough Rheumatoid Factor Complement C4 Miscellaneous Test Crossmatch 09/27/16 09/27/16 09/28/16 Unknown Unknown 03:45 WBC RBC 2.49 L Hgb 6.8 L Hct 20.7 L MCV MCH 27 L MCHC RDW 22.1 H Plt Count Lymph % (Auto) Centre % (Auto) Lymph # Centre # Baso # Seg Neutrophils % Seg Neuts % (Manual) 32.0 L Lymphocytes % (Manual) 12.0 L Monocytes % (Manual) 11.0 H Eosinophils % (Manual) 10.0 H Basophils % (Manual) Nucleated RBC % Seg Neutrophils # Seg Neutrophils # Man Lymphocytes # (Manual) 1.0 L Monocytes # (Manual) 0.9 H Eosinophils # (Manual) 0.8 H PT INR Fibrinogen dRVVT Confirm Interp Factor V Activity POC ABG pH POC ABG pCO2 POC ABG pO2 Sodium 135 L 135 L Potassium 3.5 L Chloride 93.6 L 94.4 L Carbon Dioxide 17 L 21 L BUN 45 H 28 H Creatinine 3.3 H 2.5 H Glucose 106 H POC Glucose Lactic Acid Calcium 7.3 L 7.1 L Phosphorus Magnesium Direct Bilirubin ALT Alkaline Phosphatase Troponin T C-Reactive Protein Total Protein Albumin Triglycerides Cholesterol LDL Cholesterol Direct HDL Cholesterol Urine WBC (Auto) Urine Creatinine Urine Total Protein Vancomycin Trough Rheumatoid Factor Complement C4 Miscellaneous Test Crossmatch 09/28/16 09/28/16 09/28/16 03:45 07:25 11:58 WBC 13.3 H RBC 3.01 L Hgb 8.4 L Hct 25.0 L MCV MCH MCHC RDW 20.5 H Plt Count 128 L Lymph % (Auto) Centre % (Auto) Lymph # Centre # Baso # Seg Neutrophils % Seg Neuts % (Manual) Lymphocytes % (Manual) 7.0 L Monocytes % (Manual) Eosinophils % (Manual) 6.0 H Basophils % (Manual) Nucleated RBC % Seg Neutrophils # Seg Neutrophils # Man Lymphocytes # (Manual) 0.9 L Monocytes # (Manual) Eosinophils # (Manual) 0.8 H PT INR Fibrinogen dRVVT Confirm Interp Factor V Activity POC ABG pH POC ABG pCO2 POC ABG pO2 Sodium Potassium Chloride Carbon Dioxide BUN Creatinine Glucose POC Glucose 121 H Lactic Acid 4.50 H* Calcium Phosphorus Magnesium Direct Bilirubin ALT Alkaline Phosphatase Troponin T C-Reactive Protein Total Protein Albumin Triglycerides Cholesterol LDL Cholesterol Direct HDL Cholesterol Urine WBC (Auto) Urine Creatinine Urine Total Protein Vancomycin Trough Rheumatoid Factor Complement C4 Miscellaneous Test Crossmatch 09/29/16 09/29/16 09/29/16 06:45 06:45 06:45 WBC 14.9 H RBC 2.74 L Hgb 7.6 L Hct 23.2 L MCV MCH MCHC RDW 20.5 H Plt Count 81 L Lymph % (Auto) Centre % (Auto) Lymph # Centre # Baso # Seg Neutrophils % Seg Neuts % (Manual) 81.0 H Lymphocytes % (Manual) 4.0 L Monocytes % (Manual) Eosinophils % (Manual) Basophils % (Manual) Nucleated RBC % Seg Neutrophils # Seg Neutrophils # Man 12.1 H Lymphocytes # (Manual) 0.6 L Monocytes # (Manual) Eosinophils # (Manual) PT INR Fibrinogen dRVVT Confirm Interp Factor V Activity POC ABG pH POC ABG pCO2 POC ABG pO2 Sodium 133 L Potassium 3.4 L Chloride 92.5 L Carbon Dioxide 21 L BUN 33 H Creatinine 3.0 H Glucose POC Glucose Lactic Acid Calcium 6.6 L Phosphorus Magnesium 1.40 L Direct Bilirubin 0.9 H ALT Alkaline Phosphatase Troponin T C-Reactive Protein Total Protein 4.3 L Albumin 1.3 L Triglycerides Cholesterol LDL Cholesterol Direct HDL Cholesterol Urine WBC (Auto) Urine Creatinine Urine Total Protein Vancomycin Trough Rheumatoid Factor Complement C4 Miscellaneous Test Crossmatch 09/29/16 09/29/16 09/30/16 17:52 20:12 00:07 WBC RBC Hgb Hct MCV MCH MCHC RDW Plt Count Lymph % (Auto) Centre % (Auto) Lymph # Centre # Baso # Seg Neutrophils % Seg Neuts % (Manual) Lymphocytes % (Manual) Monocytes % (Manual) Eosinophils % (Manual) Basophils % (Manual) Nucleated RBC % Seg Neutrophils # Seg Neutrophils # Man Lymphocytes # (Manual) Monocytes # (Manual) Eosinophils # (Manual) PT INR Fibrinogen dRVVT Confirm Interp Factor V Activity POC ABG pH POC ABG pCO2 POC ABG pO2 Sodium Potassium Chloride Carbon Dioxide BUN Creatinine Glucose POC Glucose 50 L 51 L Lactic Acid Calcium Phosphorus Magnesium Direct Bilirubin ALT Alkaline Phosphatase Troponin T 0.204 H* C-Reactive Protein Total Protein Albumin Triglycerides Cholesterol 31 L LDL Cholesterol Direct 4 L HDL Cholesterol 3 L Urine WBC (Auto) Urine Creatinine Urine Total Protein Vancomycin Trough Rheumatoid Factor Complement C4 Miscellaneous Test Crossmatch 09/30/16 09/30/16 09/30/16 01:30 05:15 06:10 WBC RBC Hgb Hct MCV MCH MCHC RDW Plt Count Lymph % (Auto) Centre % (Auto) Lymph # Centre # Baso # Seg Neutrophils % Seg Neuts % (Manual) Lymphocytes % (Manual) Monocytes % (Manual) Eosinophils % (Manual) Basophils % (Manual) Nucleated RBC % Seg Neutrophils # Seg Neutrophils # Man Lymphocytes # (Manual) Monocytes # (Manual) Eosinophils # (Manual) PT INR Fibrinogen dRVVT Confirm Interp Factor V Activity POC ABG pH POC ABG pCO2 POC ABG pO2 Sodium 133 L Potassium 3.2 L Chloride 93.2 L Carbon Dioxide 19 L BUN 36 H Creatinine 3.2 H Glucose 104 H POC Glucose 167 H 146 H Lactic Acid Calcium 6.4 L Phosphorus Magnesium 1.60 L Direct Bilirubin ALT Alkaline Phosphatase Troponin T C-Reactive Protein Total Protein Albumin Triglycerides Cholesterol LDL Cholesterol Direct HDL Cholesterol Urine WBC (Auto) Urine Creatinine Urine Total Protein Vancomycin Trough Rheumatoid Factor Complement C4 Miscellaneous Test Crossmatch 09/30/16 09/30/16 09/30/16 11:26 13:39 18:38 WBC RBC Hgb Hct MCV MCH MCHC RDW Plt Count Lymph % (Auto) Centre % (Auto) Lymph # Centre # Baso # Seg Neutrophils % Seg Neuts % (Manual) Lymphocytes % (Manual) Monocytes % (Manual) Eosinophils % (Manual) Basophils % (Manual) Nucleated RBC % Seg Neutrophils # Seg Neutrophils # Man Lymphocytes # (Manual) Monocytes # (Manual) Eosinophils # (Manual) PT INR Fibrinogen dRVVT Confirm Interp Factor V Activity POC ABG pH 7.479 H POC ABG pCO2 29.8 L POC ABG pO2 117 H Sodium Potassium Chloride Carbon Dioxide BUN Creatinine Glucose POC Glucose 140 H 122 H Lactic Acid Calcium Phosphorus Magnesium Direct Bilirubin ALT Alkaline Phosphatase Troponin T C-Reactive Protein Total Protein Albumin Triglycerides Cholesterol LDL Cholesterol Direct HDL Cholesterol Urine WBC (Auto) Urine Creatinine Urine Total Protein Vancomycin Trough Rheumatoid Factor Complement C4 Miscellaneous Test Crossmatch 10/01/16 10/01/16 10/01/16 06:00 06:00 12:37 WBC 12.6 H RBC 2.75 L Hgb 7.3 L Hct 23.3 L MCV MCH 27 L MCHC RDW 20.6 H Plt Count 72 L Lymph % (Auto) Centre % (Auto) Lymph # Centre # Baso # Seg Neutrophils % Seg Neuts % (Manual) 31.0 L Lymphocytes % (Manual) 8.0 L Monocytes % (Manual) Eosinophils % (Manual) Basophils % (Manual) Nucleated RBC % 3.0 H Seg Neutrophils # Seg Neutrophils # Man Lymphocytes # (Manual) 1.0 L Monocytes # (Manual) Eosinophils # (Manual) PT INR Fibrinogen dRVVT Confirm Interp Factor V Activity POC ABG pH POC ABG pCO2 POC ABG pO2 Sodium 127 L Potassium Chloride 86.8 L Carbon Dioxide 20 L BUN 42 H Creatinine 3.5 H Glucose POC Glucose 65 L Lactic Acid Calcium 7.0 L Phosphorus Magnesium Direct Bilirubin ALT Alkaline Phosphatase Troponin T C-Reactive Protein Total Protein Albumin Triglycerides Cholesterol LDL Cholesterol Direct HDL Cholesterol Urine WBC (Auto) Urine Creatinine Urine Total Protein Vancomycin Trough Rheumatoid Factor Complement C4 Miscellaneous Test Crossmatch 10/01/16 10/01/16 10/02/16 17:39 23:32 00:59 WBC RBC Hgb Hct MCV MCH MCHC RDW Plt Count Lymph % (Auto) Centre % (Auto) Lymph # Centre # Baso # Seg Neutrophils % Seg Neuts % (Manual) Lymphocytes % (Manual) Monocytes % (Manual) Eosinophils % (Manual) Basophils % (Manual) Nucleated RBC % Seg Neutrophils # Seg Neutrophils # Man Lymphocytes # (Manual) Monocytes # (Manual) Eosinophils # (Manual) PT INR Fibrinogen dRVVT Confirm Interp Factor V Activity POC ABG pH POC ABG pCO2 POC ABG pO2 Sodium Potassium Chloride Carbon Dioxide BUN Creatinine Glucose POC Glucose 107 H 52 L 145 H Lactic Acid Calcium Phosphorus Magnesium Direct Bilirubin ALT Alkaline Phosphatase Troponin T C-Reactive Protein Total Protein Albumin Triglycerides Cholesterol LDL Cholesterol Direct HDL Cholesterol Urine WBC (Auto) Urine Creatinine Urine Total Protein Vancomycin Trough Rheumatoid Factor Complement C4 Miscellaneous Test Crossmatch 10/02/16 10/02/16 10/02/16 10:30 10:50 10:50 WBC 14.7 H RBC 2.76 L Hgb 7.4 L Hct 23.6 L MCV MCH 27 L MCHC RDW 20.2 H Plt Count 79 L Lymph % (Auto) Centre % (Auto) Lymph # Centre # Baso # Seg Neutrophils % Seg Neuts % (Manual) 86.0 H Lymphocytes % (Manual) 6.0 L Monocytes % (Manual) Eosinophils % (Manual) Basophils % (Manual) Nucleated RBC % Seg Neutrophils # Seg Neutrophils # Man 12.6 H Lymphocytes # (Manual) 0.9 L Monocytes # (Manual) Eosinophils # (Manual) PT INR Fibrinogen dRVVT Confirm Interp Factor V Activity POC ABG pH 7.486 H POC ABG pCO2 30.1 L POC ABG pO2 108 H Sodium 131 L Potassium 3.4 L Chloride 89.9 L Carbon Dioxide BUN 26 H Creatinine 2.6 H Glucose POC Glucose Lactic Acid Calcium 7.0 L Phosphorus Magnesium Direct Bilirubin ALT Alkaline Phosphatase Troponin T C-Reactive Protein Total Protein Albumin Triglycerides Cholesterol LDL Cholesterol Direct HDL Cholesterol Urine WBC (Auto) Urine Creatinine Urine Total Protein Vancomycin Trough Rheumatoid Factor Complement C4 Miscellaneous Test Crossmatch 10/02/16 10/03/16 10/03/16 23:45 00:45 05:10 WBC 12.9 H RBC 2.77 L Hgb 7.6 L Hct 23.7 L MCV MCH 27 L MCHC RDW 19.7 H Plt Count 89 L Lymph % (Auto) Centre % (Auto) Lymph # Centre # Baso # Seg Neutrophils % Seg Neuts % (Manual) Lymphocytes % (Manual) 8.0 L Monocytes % (Manual) Eosinophils % (Manual) Basophils % (Manual) Nucleated RBC % Seg Neutrophils # 11.9 H Seg Neutrophils # Man Lymphocytes # (Manual) 1.0 L Monocytes # (Manual) Eosinophils # (Manual) PT INR Fibrinogen dRVVT Confirm Interp Factor V Activity POC ABG pH POC ABG pCO2 POC ABG pO2 Sodium Potassium Chloride Carbon Dioxide BUN Creatinine Glucose POC Glucose 55 L 199 H Lactic Acid Calcium Phosphorus Magnesium Direct Bilirubin ALT Alkaline Phosphatase Troponin T C-Reactive Protein Total Protein Albumin Triglycerides Cholesterol LDL Cholesterol Direct HDL Cholesterol Urine WBC (Auto) Urine Creatinine Urine Total Protein Vancomycin Trough Rheumatoid Factor Complement C4 Miscellaneous Test Crossmatch 10/03/16 10/03/16 10/03/16 05:10 12:14 13:18 WBC RBC Hgb Hct MCV MCH MCHC RDW Plt Count Lymph % (Auto) Centre % (Auto) Lymph # Centre # Baso # Seg Neutrophils % Seg Neuts % (Manual) Lymphocytes % (Manual) Monocytes % (Manual) Eosinophils % (Manual) Basophils % (Manual) Nucleated RBC % Seg Neutrophils # Seg Neutrophils # Man Lymphocytes # (Manual) Monocytes # (Manual) Eosinophils # (Manual) PT INR Fibrinogen dRVVT Confirm Interp Factor V Activity POC ABG pH POC ABG pCO2 POC ABG pO2 Sodium 129 L Potassium 3.3 L Chloride 88.8 L Carbon Dioxide 20 L BUN 29 H Creatinine 2.8 H Glucose POC Glucose 68 L 127 H Lactic Acid Calcium 7.2 L Phosphorus Magnesium Direct Bilirubin ALT Alkaline Phosphatase Troponin T C-Reactive Protein Total Protein Albumin Triglycerides Cholesterol LDL Cholesterol Direct HDL Cholesterol Urine WBC (Auto) Urine Creatinine Urine Total Protein Vancomycin Trough Rheumatoid Factor Complement C4 Miscellaneous Test Crossmatch 10/03/16 10/03/16 10/03/16 14:42 18:21 19:09 WBC RBC Hgb Hct MCV MCH MCHC RDW Plt Count Lymph % (Auto) Centre % (Auto) Lymph # Centre # Baso # Seg Neutrophils % Seg Neuts % (Manual) Lymphocytes % (Manual) Monocytes % (Manual) Eosinophils % (Manual) Basophils % (Manual) Nucleated RBC % Seg Neutrophils # Seg Neutrophils # Man Lymphocytes # (Manual) Monocytes # (Manual) Eosinophils # (Manual) PT INR Fibrinogen dRVVT Confirm Interp Factor V Activity POC ABG pH 7.499 H POC ABG pCO2 28.4 L POC ABG pO2 44 L Sodium Potassium Chloride Carbon Dioxide BUN Creatinine Glucose POC Glucose 64 L 205 H Lactic Acid Calcium Phosphorus Magnesium Direct Bilirubin ALT Alkaline Phosphatase Troponin T C-Reactive Protein Total Protein Albumin Triglycerides Cholesterol LDL Cholesterol Direct HDL Cholesterol Urine WBC (Auto) Urine Creatinine Urine Total Protein Vancomycin Trough Rheumatoid Factor Complement C4 Miscellaneous Test Crossmatch 10/03/16 10/04/16 10/04/16 23:33 04:18 06:30 WBC RBC 2.54 L Hgb 7.1 L Hct 21.7 L MCV MCH MCHC RDW 19.5 H Plt Count 76 L Lymph % (Auto) Centre % (Auto) Lymph # Centre # Baso # Seg Neutrophils % Seg Neuts % (Manual) 88.0 H Lymphocytes % (Manual) 6.0 L Monocytes % (Manual) Eosinophils % (Manual) Basophils % (Manual) Nucleated RBC % Seg Neutrophils # Seg Neutrophils # Man 8.8 H Lymphocytes # (Manual) 0.6 L Monocytes # (Manual) Eosinophils # (Manual) PT INR Fibrinogen dRVVT Confirm Interp Factor V Activity POC ABG pH 7.461 H POC ABG pCO2 33.6 L POC ABG pO2 211 H Sodium Potassium Chloride Carbon Dioxide BUN Creatinine Glucose POC Glucose 136 H Lactic Acid Calcium Phosphorus Magnesium Direct Bilirubin ALT Alkaline Phosphatase Troponin T C-Reactive Protein Total Protein Albumin Triglycerides Cholesterol LDL Cholesterol Direct HDL Cholesterol Urine WBC (Auto) Urine Creatinine Urine Total Protein Vancomycin Trough Rheumatoid Factor Complement C4 Miscellaneous Test Crossmatch 10/04/16 10/04/16 10/04/16 06:30 11:45 17:54 WBC RBC Hgb Hct MCV MCH MCHC RDW Plt Count Lymph % (Auto) Centre % (Auto) Lymph # Centre # Baso # Seg Neutrophils % Seg Neuts % (Manual) Lymphocytes % (Manual) Monocytes % (Manual) Eosinophils % (Manual) Basophils % (Manual) Nucleated RBC % Seg Neutrophils # Seg Neutrophils # Man Lymphocytes # (Manual) Monocytes # (Manual) Eosinophils # (Manual) PT INR Fibrinogen dRVVT Confirm Interp Factor V Activity POC ABG pH POC ABG pCO2 POC ABG pO2 Sodium 128 L Potassium Chloride 87.4 L Carbon Dioxide 20 L BUN 34 H Creatinine 2.9 H Glucose 127 H POC Glucose 158 H 160 H Lactic Acid Calcium 7.4 L Phosphorus Magnesium Direct Bilirubin ALT Alkaline Phosphatase Troponin T C-Reactive Protein Total Protein Albumin Triglycerides Cholesterol LDL Cholesterol Direct HDL Cholesterol Urine WBC (Auto) Urine Creatinine Urine Total Protein Vancomycin Trough Rheumatoid Factor Complement C4 Miscellaneous Test Crossmatch 10/04/16 10/05/16 10/05/16 23:25 04:30 05:00 WBC RBC 2.64 L Hgb 7.5 L Hct 22.6 L MCV MCH MCHC RDW 19.3 H Plt Count 80 L Lymph % (Auto) Centre % (Auto) Lymph # Centre # Baso # Seg Neutrophils % Seg Neuts % (Manual) Lymphocytes % (Manual) 12.0 L Monocytes % (Manual) Eosinophils % (Manual) Basophils % (Manual) Nucleated RBC % Seg Neutrophils # Seg Neutrophils # Man Lymphocytes # (Manual) Monocytes # (Manual) Eosinophils # (Manual) PT INR Fibrinogen dRVVT Confirm Interp Factor V Activity POC ABG pH 7.475 H POC ABG pCO2 33.3 L POC ABG pO2 140 H Sodium Potassium Chloride Carbon Dioxide BUN Creatinine Glucose POC Glucose 141 H Lactic Acid Calcium Phosphorus Magnesium Direct Bilirubin ALT Alkaline Phosphatase Troponin T C-Reactive Protein Total Protein Albumin Triglycerides Cholesterol LDL Cholesterol Direct HDL Cholesterol Urine WBC (Auto) Urine Creatinine Urine Total Protein Vancomycin Trough Rheumatoid Factor Complement C4 Miscellaneous Test Crossmatch 10/05/16 10/05/16 10/05/16 05:00 05:09 12:58 WBC RBC Hgb Hct MCV MCH MCHC RDW Plt Count Lymph % (Auto) Centre % (Auto) Lymph # Centre # Baso # Seg Neutrophils % Seg Neuts % (Manual) Lymphocytes % (Manual) Monocytes % (Manual) Eosinophils % (Manual) Basophils % (Manual) Nucleated RBC % Seg Neutrophils # Seg Neutrophils # Man Lymphocytes # (Manual) Monocytes # (Manual) Eosinophils # (Manual) PT INR Fibrinogen dRVVT Confirm Interp Factor V Activity POC ABG pH POC ABG pCO2 POC ABG pO2 Sodium 131 L Potassium Chloride 94.0 L Carbon Dioxide 20 L BUN 22 H Creatinine 2.0 H Glucose 123 H POC Glucose 166 H 179 H Lactic Acid Calcium 7.7 L Phosphorus 2.20 L D Magnesium Direct Bilirubin ALT Alkaline Phosphatase Troponin T C-Reactive Protein Total Protein Albumin Triglycerides Cholesterol LDL Cholesterol Direct HDL Cholesterol Urine WBC (Auto) Urine Creatinine Urine Total Protein Vancomycin Trough Rheumatoid Factor Complement C4 Miscellaneous Test Crossmatch 10/05/16 10/05/16 10/05/16 15:50 18:53 23:12 WBC RBC Hgb Hct MCV MCH MCHC RDW Plt Count Lymph % (Auto) Centre % (Auto) Lymph # Centre # Baso # Seg Neutrophils % Seg Neuts % (Manual) Lymphocytes % (Manual) Monocytes % (Manual) Eosinophils % (Manual) Basophils % (Manual) Nucleated RBC % Seg Neutrophils # Seg Neutrophils # Man Lymphocytes # (Manual) Monocytes # (Manual) Eosinophils # (Manual) PT INR Fibrinogen dRVVT Confirm Interp Factor V Activity POC ABG pH POC ABG pCO2 POC ABG pO2 Sodium Potassium Chloride Carbon Dioxide BUN Creatinine Glucose POC Glucose 150 H 164 H Lactic Acid Calcium Phosphorus Magnesium Direct Bilirubin ALT Alkaline Phosphatase Troponin T C-Reactive Protein Total Protein Albumin Triglycerides Cholesterol LDL Cholesterol Direct HDL Cholesterol Urine WBC (Auto) Urine Creatinine Urine Total Protein Vancomycin Trough Rheumatoid Factor Complement C4 Miscellaneous Test Crossmatch See Detail 10/06/16 10/06/16 10/06/16 03:50 03:50 04:53 WBC RBC 3.00 L Hgb 8.6 L Hct 25.8 L MCV MCH MCHC RDW 17.9 H Plt Count 65 L Lymph % (Auto) Centre % (Auto) Lymph # Centre # Baso # Seg Neutrophils % Seg Neuts % (Manual) 30.0 L Lymphocytes % (Manual) 5.0 L Monocytes % (Manual) Eosinophils % (Manual) Basophils % (Manual) Nucleated RBC % Seg Neutrophils # Seg Neutrophils # Man Lymphocytes # (Manual) 0.4 L Monocytes # (Manual) Eosinophils # (Manual) PT INR Fibrinogen dRVVT Confirm Interp Factor V Activity POC ABG pH 7.310 L POC ABG pCO2 49.0 H POC ABG pO2 Sodium 133 L Potassium Chloride 95.9 L Carbon Dioxide BUN 26 H Creatinine 2.0 H Glucose 116 H POC Glucose Lactic Acid Calcium 7.8 L Phosphorus Magnesium Direct Bilirubin ALT Alkaline Phosphatase Troponin T C-Reactive Protein Total Protein Albumin Triglycerides Cholesterol LDL Cholesterol Direct HDL Cholesterol Urine WBC (Auto) Urine Creatinine Urine Total Protein Vancomycin Trough Rheumatoid Factor Complement C4 Miscellaneous Test Crossmatch 10/06/16 10/06/16 10/06/16 05:23 11:52 18:34 WBC RBC Hgb Hct MCV MCH MCHC RDW Plt Count Lymph % (Auto) Centre % (Auto) Lymph # Centre # Baso # Seg Neutrophils % Seg Neuts % (Manual) Lymphocytes % (Manual) Monocytes % (Manual) Eosinophils % (Manual) Basophils % (Manual) Nucleated RBC % Seg Neutrophils # Seg Neutrophils # Man Lymphocytes # (Manual) Monocytes # (Manual) Eosinophils # (Manual) PT INR Fibrinogen dRVVT Confirm Interp Factor V Activity POC ABG pH POC ABG pCO2 POC ABG pO2 Sodium Potassium Chloride Carbon Dioxide BUN Creatinine Glucose POC Glucose 126 H 116 H 129 H Lactic Acid Calcium Phosphorus Magnesium Direct Bilirubin ALT Alkaline Phosphatase Troponin T C-Reactive Protein Total Protein Albumin Triglycerides Cholesterol LDL Cholesterol Direct HDL Cholesterol Urine WBC (Auto) Urine Creatinine Urine Total Protein Vancomycin Trough Rheumatoid Factor Complement C4 Miscellaneous Test Crossmatch 10/07/16 10/07/16 10/07/16 03:45 05:00 10:00 WBC 17.0 H RBC 2.68 L Hgb 7.3 L Hct 25.3 L MCV MCH 27 L MCHC 29 L RDW 19.6 H Plt Count 74 L Lymph % (Auto) Centre % (Auto) Lymph # Centre # Baso # Seg Neutrophils % Seg Neuts % (Manual) Lymphocytes % (Manual) 12.0 L Monocytes % (Manual) Eosinophils % (Manual) Basophils % (Manual) Nucleated RBC % 4.0 H Seg Neutrophils # Seg Neutrophils # Man 10.7 H Lymphocytes # (Manual) Monocytes # (Manual) Eosinophils # (Manual) PT INR Fibrinogen dRVVT Confirm Interp Factor V Activity POC ABG pH POC ABG pCO2 POC ABG pO2 Sodium 130 L Potassium 3.2 L Chloride 93.9 L Carbon Dioxide 20 L BUN 44 H Creatinine 2.7 H Glucose 129 H POC Glucose Lactic Acid Calcium 7.4 L Phosphorus Magnesium Direct Bilirubin ALT 6 L Alkaline Phosphatase 195 H Troponin T C-Reactive Protein Total Protein 4.9 L Albumin 1.0 L Triglycerides Cholesterol LDL Cholesterol Direct HDL Cholesterol Urine WBC (Auto) Urine Creatinine Urine Total Protein Vancomycin Trough Rheumatoid Factor Complement C4 Miscellaneous Test Flexitest 1 H Crossmatch 10/07/16 10/07/16 10/07/16 10:00 11:24 18:10 WBC RBC Hgb Hct MCV MCH MCHC RDW Plt Count Lymph % (Auto) Centre % (Auto) Lymph # Centre # Baso # Seg Neutrophils % Seg Neuts % (Manual) Lymphocytes % (Manual) Monocytes % (Manual) Eosinophils % (Manual) Basophils % (Manual) Nucleated RBC % Seg Neutrophils # Seg Neutrophils # Man Lymphocytes # (Manual) Monocytes # (Manual) Eosinophils # (Manual) PT INR Fibrinogen dRVVT Confirm Interp Factor V Activity POC ABG pH POC ABG pCO2 POC ABG pO2 Sodium Potassium Chloride Carbon Dioxide BUN Creatinine Glucose POC Glucose 116 H 130 H Lactic Acid Calcium Phosphorus Magnesium Direct Bilirubin ALT Alkaline Phosphatase Troponin T C-Reactive Protein 19.40 H Total Protein Albumin Triglycerides Cholesterol LDL Cholesterol Direct HDL Cholesterol Urine WBC (Auto) Urine Creatinine Urine Total Protein Vancomycin Trough Rheumatoid Factor Complement C4 Miscellaneous Test Crossmatch 10/07/16 10/08/16 10/08/16 18:30 00:00 04:00 WBC RBC Hgb Hct MCV MCH MCHC RDW Plt Count Lymph % (Auto) Centre % (Auto) Lymph # Centre # Baso # Seg Neutrophils % Seg Neuts % (Manual) Lymphocytes % (Manual) Monocytes % (Manual) Eosinophils % (Manual) Basophils % (Manual) Nucleated RBC % Seg Neutrophils # Seg Neutrophils # Man Lymphocytes # (Manual) Monocytes # (Manual) Eosinophils # (Manual) PT INR Fibrinogen dRVVT Confirm Interp Factor V Activity POC ABG pH POC ABG pCO2 POC ABG pO2 Sodium 132 L Potassium 3.3 L Chloride 93.6 L Carbon Dioxide 17 L BUN 59 H Creatinine 2.7 H Glucose 121 H POC Glucose 122 H Lactic Acid Calcium 7.6 L Phosphorus Magnesium Direct Bilirubin ALT Alkaline Phosphatase Troponin T C-Reactive Protein Total Protein Albumin Triglycerides Cholesterol LDL Cholesterol Direct HDL Cholesterol Urine WBC (Auto) > 182.0 H Urine Creatinine Urine Total Protein Vancomycin Trough Rheumatoid Factor Complement C4 Miscellaneous Test Crossmatch 10/08/16 10/08/16 10/08/16 04:30 05:30 11:51 WBC RBC 5.15 H Hgb 14.4 H D Hct 44.5 H D MCV MCH MCHC RDW 19.5 H Plt Count 56 L Lymph % (Auto) Centre % (Auto) Lymph # Centre # Baso # Seg Neutrophils % Seg Neuts % (Manual) 24.0 L Lymphocytes % (Manual) 8.0 L Monocytes % (Manual) Eosinophils % (Manual) Basophils % (Manual) Nucleated RBC % 9.0 H Seg Neutrophils # Seg Neutrophils # Man Lymphocytes # (Manual) 0.7 L Monocytes # (Manual) Eosinophils # (Manual) PT INR Fibrinogen dRVVT Confirm Interp Factor V Activity POC ABG pH POC ABG pCO2 POC ABG pO2 Sodium Potassium Chloride Carbon Dioxide BUN Creatinine Glucose POC Glucose 125 H 150 H Lactic Acid Calcium Phosphorus Magnesium Direct Bilirubin ALT Alkaline Phosphatase Troponin T C-Reactive Protein Total Protein Albumin Triglycerides Cholesterol LDL Cholesterol Direct HDL Cholesterol Urine WBC (Auto) Urine Creatinine Urine Total Protein Vancomycin Trough Rheumatoid Factor Complement C4 Miscellaneous Test Crossmatch 10/08/16 10/08/16 10/08/16 12:49 17:07 19:30 WBC RBC Hgb 7.1 L D Hct 22.4 L D MCV MCH MCHC RDW Plt Count Lymph % (Auto) Centre % (Auto) Lymph # Centre # Baso # Seg Neutrophils % Seg Neuts % (Manual) Lymphocytes % (Manual) Monocytes % (Manual) Eosinophils % (Manual) Basophils % (Manual) Nucleated RBC % Seg Neutrophils # Seg Neutrophils # Man Lymphocytes # (Manual) Monocytes # (Manual) Eosinophils # (Manual) PT INR Fibrinogen dRVVT Confirm Interp Factor V Activity POC ABG pH POC ABG pCO2 28.2 L POC ABG pO2 111 H Sodium Potassium Chloride Carbon Dioxide BUN Creatinine Glucose POC Glucose 145 H Lactic Acid Calcium Phosphorus Magnesium Direct Bilirubin ALT Alkaline Phosphatase Troponin T C-Reactive Protein Total Protein Albumin Triglycerides Cholesterol LDL Cholesterol Direct HDL Cholesterol Urine WBC (Auto) Urine Creatinine Urine Total Protein Vancomycin Trough Rheumatoid Factor Complement C4 Miscellaneous Test Crossmatch 10/08/16 10/09/16 10/09/16 19:30 03:45 03:45 WBC 12.6 H RBC 2.36 L Hgb 6.7 L Hct 21.1 L MCV MCH MCHC RDW 19.5 H Plt Count 75 L Lymph % (Auto) Centre % (Auto) Lymph # Centre # Baso # Seg Neutrophils % Seg Neuts % (Manual) Lymphocytes % (Manual) Monocytes % (Manual) 10.0 H Eosinophils % (Manual) Basophils % (Manual) Nucleated RBC % 3.0 H Seg Neutrophils # Seg Neutrophils # Man Lymphocytes # (Manual) Monocytes # (Manual) 1.3 H Eosinophils # (Manual) PT 18.0 H INR 1.41 H Fibrinogen dRVVT Confirm Interp Factor V Activity POC ABG pH POC ABG pCO2 POC ABG pO2 Sodium 135 L Potassium Chloride Carbon Dioxide 17 L BUN 81 H Creatinine 3.2 H Glucose 109 H POC Glucose Lactic Acid Calcium 7.4 L Phosphorus 4.60 H D Magnesium Direct Bilirubin ALT Alkaline Phosphatase Troponin T C-Reactive Protein Total Protein Albumin Triglycerides Cholesterol LDL Cholesterol Direct HDL Cholesterol Urine WBC (Auto) Urine Creatinine Urine Total Protein Vancomycin Trough Rheumatoid Factor Complement C4 Miscellaneous Test Crossmatch 10/09/16 10/09/16 10/09/16 03:45 05:14 07:20 WBC RBC Hgb Hct MCV MCH MCHC RDW Plt Count Lymph % (Auto) Centre % (Auto) Lymph # Centre # Baso # Seg Neutrophils % Seg Neuts % (Manual) Lymphocytes % (Manual) Monocytes % (Manual) Eosinophils % (Manual) Basophils % (Manual) Nucleated RBC % Seg Neutrophils # Seg Neutrophils # Man Lymphocytes # (Manual) Monocytes # (Manual) Eosinophils # (Manual) PT 19.0 H INR 1.51 H Fibrinogen dRVVT Confirm Interp Factor V Activity POC ABG pH POC ABG pCO2 POC ABG pO2 Sodium Potassium Chloride Carbon Dioxide BUN Creatinine Glucose POC Glucose 151 H Lactic Acid Calcium Phosphorus Magnesium Direct Bilirubin ALT Alkaline Phosphatase Troponin T C-Reactive Protein Total Protein Albumin Triglycerides Cholesterol LDL Cholesterol Direct HDL Cholesterol Urine WBC (Auto) Urine Creatinine Urine Total Protein Vancomycin Trough Rheumatoid Factor Complement C4 Miscellaneous Test Crossmatch See Detail 10/09/16 10/09/16 10/09/16 11:46 16:20 16:43 WBC RBC Hgb 7.2 L Hct 22.2 L MCV MCH MCHC RDW Plt Count Lymph % (Auto) Centre % (Auto) Lymph # Centre # Baso # Seg Neutrophils % Seg Neuts % (Manual) Lymphocytes % (Manual) Monocytes % (Manual) Eosinophils % (Manual) Basophils % (Manual) Nucleated RBC % Seg Neutrophils # Seg Neutrophils # Man Lymphocytes # (Manual) Monocytes # (Manual) Eosinophils # (Manual) PT INR Fibrinogen dRVVT Confirm Interp Factor V Activity POC ABG pH POC ABG pCO2 POC ABG pO2 Sodium Potassium Chloride Carbon Dioxide BUN Creatinine Glucose POC Glucose 133 H 141 H Lactic Acid Calcium Phosphorus Magnesium Direct Bilirubin ALT Alkaline Phosphatase Troponin T C-Reactive Protein Total Protein Albumin Triglycerides Cholesterol LDL Cholesterol Direct HDL Cholesterol Urine WBC (Auto) Urine Creatinine Urine Total Protein Vancomycin Trough Rheumatoid Factor Complement C4 Miscellaneous Test Crossmatch 10/10/16 10/10/16 10/10/16 05:00 05:00 11:19 WBC 18.5 H RBC 2.19 L Hgb 6.4 L Hct 19.6 L* MCV MCH MCHC RDW 19.3 H Plt Count 93 L Lymph % (Auto) Centre % (Auto) Lymph # Centre # Baso # Seg Neutrophils % Seg Neuts % (Manual) Lymphocytes % (Manual) 10.0 L Monocytes % (Manual) Eosinophils % (Manual) Basophils % (Manual) Nucleated RBC % 4.0 H Seg Neutrophils # Seg Neutrophils # Man 11.3 H Lymphocytes # (Manual) Monocytes # (Manual) Eosinophils # (Manual) PT INR Fibrinogen dRVVT Confirm Interp Factor V Activity POC ABG pH POC ABG pCO2 POC ABG pO2 Sodium Potassium 5.7 H D Chloride Carbon Dioxide 16 L BUN 94 H Creatinine 3.1 H Glucose 131 H POC Glucose 153 H Lactic Acid Calcium 8.2 L Phosphorus 5.10 H Magnesium 2.40 H Direct Bilirubin 0.3 H ALT < 5 L Alkaline Phosphatase 319 H Troponin T C-Reactive Protein Total Protein 5.1 L Albumin 1.0 L Triglycerides Cholesterol LDL Cholesterol Direct HDL Cholesterol Urine WBC (Auto) Urine Creatinine Urine Total Protein Vancomycin Trough Rheumatoid Factor Complement C4 Miscellaneous Test Crossmatch 10/10/16 10/10/16 10/11/16 17:50 23:30 04:15 WBC RBC Hgb Hct MCV MCH MCHC RDW Plt Count Lymph % (Auto) Centre % (Auto) Lymph # Centre # Baso # Seg Neutrophils % Seg Neuts % (Manual) Lymphocytes % (Manual) Monocytes % (Manual) Eosinophils % (Manual) Basophils % (Manual) Nucleated RBC % Seg Neutrophils # Seg Neutrophils # Man Lymphocytes # (Manual) Monocytes # (Manual) Eosinophils # (Manual) PT INR Fibrinogen dRVVT Confirm Interp Factor V Activity POC ABG pH POC ABG pCO2 POC ABG pO2 Sodium Potassium Chloride 96.4 L Carbon Dioxide 21 L BUN 57 H Creatinine 2.1 H Glucose 151 H POC Glucose 146 H 141 H Lactic Acid Calcium 8.3 L Phosphorus Magnesium Direct Bilirubin ALT Alkaline Phosphatase Troponin T C-Reactive Protein Total Protein Albumin Triglycerides Cholesterol LDL Cholesterol Direct HDL Cholesterol Urine WBC (Auto) Urine Creatinine Urine Total Protein Vancomycin Trough Rheumatoid Factor Complement C4 Miscellaneous Test Crossmatch 10/11/16 10/11/16 10/11/16 04:15 04:15 05:30 WBC 28.3 H RBC 3.12 L Hgb 9.3 L Hct 28.7 L D MCV MCH MCHC RDW 17.7 H Plt Count 128 L Lymph % (Auto) Centre % (Auto) Lymph # Centre # Baso # Seg Neutrophils % Seg Neuts % (Manual) Lymphocytes % (Manual) Monocytes % (Manual) Eosinophils % (Manual) Basophils % (Manual) Nucleated RBC % Seg Neutrophils # Seg Neutrophils # Man Lymphocytes # (Manual) Monocytes # (Manual) Eosinophils # (Manual) PT INR Fibrinogen dRVVT Confirm Interp Factor V Activity POC ABG pH POC ABG pCO2 POC ABG pO2 Sodium Potassium Chloride Carbon Dioxide BUN Creatinine Glucose POC Glucose 167 H Lactic Acid Calcium Phosphorus Magnesium Direct Bilirubin ALT Alkaline Phosphatase Troponin T C-Reactive Protein 15.80 H Total Protein Albumin Triglycerides Cholesterol LDL Cholesterol Direct HDL Cholesterol Urine WBC (Auto) Urine Creatinine Urine Total Protein Vancomycin Trough Rheumatoid Factor Complement C4 Miscellaneous Test Crossmatch 10/11/16 10/11/16 10/11/16 11:40 15:49 23:57 WBC RBC Hgb Hct MCV MCH MCHC RDW Plt Count Lymph % (Auto) Centre % (Auto) Lymph # Centre # Baso # Seg Neutrophils % Seg Neuts % (Manual) Lymphocytes % (Manual) Monocytes % (Manual) Eosinophils % (Manual) Basophils % (Manual) Nucleated RBC % Seg Neutrophils # Seg Neutrophils # Man Lymphocytes # (Manual) Monocytes # (Manual) Eosinophils # (Manual) PT INR Fibrinogen dRVVT Confirm Interp Factor V Activity POC ABG pH POC ABG pCO2 POC ABG pO2 Sodium Potassium Chloride Carbon Dioxide BUN Creatinine Glucose POC Glucose 139 H 168 H 161 H Lactic Acid Calcium Phosphorus Magnesium Direct Bilirubin ALT Alkaline Phosphatase Troponin T C-Reactive Protein Total Protein Albumin Triglycerides Cholesterol LDL Cholesterol Direct HDL Cholesterol Urine WBC (Auto) Urine Creatinine Urine Total Protein Vancomycin Trough Rheumatoid Factor Complement C4 Miscellaneous Test Crossmatch 10/12/16 10/12/16 10/12/16 04:40 04:40 05:44 WBC 22.5 H RBC 2.88 L Hgb 8.8 L Hct 26.8 L MCV MCH MCHC RDW 17.8 H Plt Count Lymph % (Auto) Centre % (Auto) Lymph # Centre # Baso # Seg Neutrophils % Seg Neuts % (Manual) Lymphocytes % (Manual) Monocytes % (Manual) Eosinophils % (Manual) Basophils % (Manual) Nucleated RBC % Seg Neutrophils # Seg Neutrophils # Man Lymphocytes # (Manual) Monocytes # (Manual) Eosinophils # (Manual) PT INR Fibrinogen dRVVT Confirm Interp Factor V Activity POC ABG pH POC ABG pCO2 POC ABG pO2 Sodium 134 L Potassium Chloride 93.0 L Carbon Dioxide BUN 74 H Creatinine 2.5 H Glucose 137 H POC Glucose 158 H Lactic Acid Calcium 8.2 L Phosphorus Magnesium Direct Bilirubin ALT Alkaline Phosphatase Troponin T C-Reactive Protein Total Protein Albumin Triglycerides Cholesterol LDL Cholesterol Direct HDL Cholesterol Urine WBC (Auto) Urine Creatinine Urine Total Protein Vancomycin Trough Rheumatoid Factor Complement C4 Miscellaneous Test Crossmatch 10/12/16 10/12/16 10/12/16 12:27 18:18 23:46 WBC RBC Hgb Hct MCV MCH MCHC RDW Plt Count Lymph % (Auto) Centre % (Auto) Lymph # Centre # Baso # Seg Neutrophils % Seg Neuts % (Manual) Lymphocytes % (Manual) Monocytes % (Manual) Eosinophils % (Manual) Basophils % (Manual) Nucleated RBC % Seg Neutrophils # Seg Neutrophils # Man Lymphocytes # (Manual) Monocytes # (Manual) Eosinophils # (Manual) PT INR Fibrinogen dRVVT Confirm Interp Factor V Activity POC ABG pH POC ABG pCO2 POC ABG pO2 Sodium Potassium Chloride Carbon Dioxide BUN Creatinine Glucose POC Glucose 153 H 140 H 150 H Lactic Acid Calcium Phosphorus Magnesium Direct Bilirubin ALT Alkaline Phosphatase Troponin T C-Reactive Protein Total Protein Albumin Triglycerides Cholesterol LDL Cholesterol Direct HDL Cholesterol Urine WBC (Auto) Urine Creatinine Urine Total Protein Vancomycin Trough Rheumatoid Factor Complement C4 Miscellaneous Test Crossmatch 10/13/16 10/13/16 10/13/16 06:22 09:20 12:29 WBC RBC Hgb Hct MCV MCH MCHC RDW Plt Count Lymph % (Auto) Centre % (Auto) Lymph # Centre # Baso # Seg Neutrophils % Seg Neuts % (Manual) Lymphocytes % (Manual) Monocytes % (Manual) Eosinophils % (Manual) Basophils % (Manual) Nucleated RBC % Seg Neutrophils # Seg Neutrophils # Man Lymphocytes # (Manual) Monocytes # (Manual) Eosinophils # (Manual) PT INR Fibrinogen dRVVT Confirm Interp Factor V Activity POC ABG pH POC ABG pCO2 POC ABG pO2 Sodium Potassium Chloride Carbon Dioxide BUN Creatinine Glucose POC Glucose 165 H 193 H Lactic Acid Calcium Phosphorus Magnesium Direct Bilirubin ALT Alkaline Phosphatase Troponin T C-Reactive Protein Total Protein Albumin Triglycerides Cholesterol LDL Cholesterol Direct HDL Cholesterol Urine WBC (Auto) Urine Creatinine Urine Total Protein Vancomycin Trough Rheumatoid Factor Complement C4 Miscellaneous Test Flexitest 1 H Crossmatch 10/13/16 10/13/16 10/13/16 18:09 Unknown Unknown WBC 23.4 H RBC 2.83 L Hgb 8.7 L Hct 26.1 L MCV MCH MCHC RDW 18.1 H Plt Count Lymph % (Auto) Centre % (Auto) Lymph # Centre # Baso # Seg Neutrophils % Seg Neuts % (Manual) Lymphocytes % (Manual) Monocytes % (Manual) Eosinophils % (Manual) Basophils % (Manual) Nucleated RBC % Seg Neutrophils # Seg Neutrophils # Man Lymphocytes # (Manual) Monocytes # (Manual) Eosinophils # (Manual) PT INR Fibrinogen dRVVT Confirm Interp Factor V Activity POC ABG pH POC ABG pCO2 POC ABG pO2 Sodium Potassium Chloride 95.8 L Carbon Dioxide BUN 82 H Creatinine 2.6 H Glucose 152 H POC Glucose 166 H Lactic Acid Calcium Phosphorus Magnesium Direct Bilirubin ALT Alkaline Phosphatase Troponin T C-Reactive Protein Total Protein Albumin Triglycerides Cholesterol LDL Cholesterol Direct HDL Cholesterol Urine WBC (Auto) Urine Creatinine Urine Total Protein Vancomycin Trough Rheumatoid Factor Complement C4 Miscellaneous Test Crossmatch 10/14/16 10/14/16 10/14/16 05:38 06:35 08:10 WBC 20.7 H RBC 2.81 L Hgb 8.4 L Hct 27.2 L MCV MCH MCHC RDW 19.4 H Plt Count Lymph % (Auto) Centre % (Auto) Lymph # Centre # Baso # Seg Neutrophils % Seg Neuts % (Manual) Lymphocytes % (Manual) Monocytes % (Manual) Eosinophils % (Manual) Basophils % (Manual) Nucleated RBC % Seg Neutrophils # Seg Neutrophils # Man Lymphocytes # (Manual) Monocytes # (Manual) Eosinophils # (Manual) PT INR Fibrinogen dRVVT Confirm Interp Factor V Activity POC ABG pH POC ABG pCO2 POC ABG pO2 Sodium Potassium Chloride Carbon Dioxide BUN 58 H Creatinine 1.9 H Glucose 169 H POC Glucose 195 H Lactic Acid Calcium Phosphorus Magnesium Direct Bilirubin ALT Alkaline Phosphatase Troponin T C-Reactive Protein Total Protein Albumin Triglycerides Cholesterol LDL Cholesterol Direct HDL Cholesterol Urine WBC (Auto) Urine Creatinine Urine Total Protein Vancomycin Trough Rheumatoid Factor Complement C4 Miscellaneous Test Crossmatch 10/14/16 10/14/16 10/14/16 11:44 17:13 23:28 WBC RBC Hgb Hct MCV MCH MCHC RDW Plt Count Lymph % (Auto) Centre % (Auto) Lymph # Centre # Baso # Seg Neutrophils % Seg Neuts % (Manual) Lymphocytes % (Manual) Monocytes % (Manual) Eosinophils % (Manual) Basophils % (Manual) Nucleated RBC % Seg Neutrophils # Seg Neutrophils # Man Lymphocytes # (Manual) Monocytes # (Manual) Eosinophils # (Manual) PT INR Fibrinogen dRVVT Confirm Interp Factor V Activity POC ABG pH POC ABG pCO2 POC ABG pO2 Sodium Potassium Chloride Carbon Dioxide BUN Creatinine Glucose POC Glucose 174 H 121 H 151 H Lactic Acid Calcium Phosphorus Magnesium Direct Bilirubin ALT Alkaline Phosphatase Troponin T C-Reactive Protein Total Protein Albumin Triglycerides Cholesterol LDL Cholesterol Direct HDL Cholesterol Urine WBC (Auto) Urine Creatinine Urine Total Protein Vancomycin Trough Rheumatoid Factor Complement C4 Miscellaneous Test Crossmatch 10/15/16 10/15/16 10/15/16 05:06 12:26 17:48 WBC RBC Hgb Hct MCV MCH MCHC RDW Plt Count Lymph % (Auto) Centre % (Auto) Lymph # Centre # Baso # Seg Neutrophils % Seg Neuts % (Manual) Lymphocytes % (Manual) Monocytes % (Manual) Eosinophils % (Manual) Basophils % (Manual) Nucleated RBC % Seg Neutrophils # Seg Neutrophils # Man Lymphocytes # (Manual) Monocytes # (Manual) Eosinophils # (Manual) PT INR Fibrinogen dRVVT Confirm Interp Factor V Activity POC ABG pH POC ABG pCO2 POC ABG pO2 Sodium Potassium Chloride Carbon Dioxide BUN Creatinine Glucose POC Glucose 151 H 149 H 153 H Lactic Acid Calcium Phosphorus Magnesium Direct Bilirubin ALT Alkaline Phosphatase Troponin T C-Reactive Protein Total Protein Albumin Triglycerides Cholesterol LDL Cholesterol Direct HDL Cholesterol Urine WBC (Auto) Urine Creatinine Urine Total Protein Vancomycin Trough Rheumatoid Factor Complement C4 Miscellaneous Test Crossmatch 10/15/16 10/15/16 10/16/16 Unknown Unknown 00:02 WBC 23.4 H RBC 2.78 L Hgb 8.5 L Hct 25.7 L MCV MCH MCHC RDW 18.7 H Plt Count Lymph % (Auto) Centre % (Auto) Lymph # Centre # Baso # Seg Neutrophils % Seg Neuts % (Manual) Lymphocytes % (Manual) Monocytes % (Manual) Eosinophils % (Manual) Basophils % (Manual) Nucleated RBC % Seg Neutrophils # Seg Neutrophils # Man Lymphocytes # (Manual) Monocytes # (Manual) Eosinophils # (Manual) PT INR Fibrinogen dRVVT Confirm Interp Factor V Activity POC ABG pH POC ABG pCO2 POC ABG pO2 Sodium Potassium Chloride Carbon Dioxide BUN 73 H Creatinine 2.3 H Glucose 120 H POC Glucose 137 H Lactic Acid Calcium Phosphorus Magnesium Direct Bilirubin ALT Alkaline Phosphatase Troponin T C-Reactive Protein Total Protein Albumin Triglycerides Cholesterol LDL Cholesterol Direct HDL Cholesterol Urine WBC (Auto) Urine Creatinine Urine Total Protein Vancomycin Trough Rheumatoid Factor Complement C4 Miscellaneous Test Crossmatch 10/16/16 10/16/16 10/16/16 05:44 06:25 06:25 WBC 22.5 H RBC 2.76 L Hgb 8.3 L Hct 25.2 L MCV MCH MCHC RDW 18.3 H Plt Count Lymph % (Auto) Centre % (Auto) Lymph # Centre # Baso # Seg Neutrophils % Seg Neuts % (Manual) Lymphocytes % (Manual) Monocytes % (Manual) Eosinophils % (Manual) Basophils % (Manual) Nucleated RBC % Seg Neutrophils # Seg Neutrophils # Man Lymphocytes # (Manual) Monocytes # (Manual) Eosinophils # (Manual) PT INR Fibrinogen dRVVT Confirm Interp Factor V Activity POC ABG pH POC ABG pCO2 POC ABG pO2 Sodium Potassium Chloride Carbon Dioxide BUN 92 H Creatinine 3.0 H Glucose 138 H POC Glucose 110 H Lactic Acid Calcium Phosphorus Magnesium Direct Bilirubin ALT Alkaline Phosphatase Troponin T C-Reactive Protein Total Protein Albumin Triglycerides Cholesterol LDL Cholesterol Direct HDL Cholesterol Urine WBC (Auto) Urine Creatinine Urine Total Protein Vancomycin Trough Rheumatoid Factor Complement C4 Miscellaneous Test Crossmatch 10/16/16 10/16/16 10/16/16 11:27 11:48 17:36 WBC RBC Hgb Hct MCV MCH MCHC RDW Plt Count Lymph % (Auto) Centre % (Auto) Lymph # Centre # Baso # Seg Neutrophils % Seg Neuts % (Manual) Lymphocytes % (Manual) Monocytes % (Manual) Eosinophils % (Manual) Basophils % (Manual) Nucleated RBC % Seg Neutrophils # Seg Neutrophils # Man Lymphocytes # (Manual) Monocytes # (Manual) Eosinophils # (Manual) PT INR Fibrinogen dRVVT Confirm Interp Factor V Activity POC ABG pH 7.582 H POC ABG pCO2 27.4 L POC ABG pO2 110 H Sodium Potassium Chloride Carbon Dioxide BUN Creatinine Glucose POC Glucose 121 H 133 H Lactic Acid Calcium Phosphorus Magnesium Direct Bilirubin ALT Alkaline Phosphatase Troponin T C-Reactive Protein Total Protein Albumin Triglycerides Cholesterol LDL Cholesterol Direct HDL Cholesterol Urine WBC (Auto) Urine Creatinine Urine Total Protein Vancomycin Trough Rheumatoid Factor Complement C4 Miscellaneous Test Crossmatch 10/16/16 10/17/16 10/17/16 20:48 04:24 04:24 WBC 21.4 H RBC 2.72 L Hgb 8.0 L Hct 25.2 L MCV MCH MCHC RDW 18.0 H Plt Count Lymph % (Auto) Centre % (Auto) Lymph # Centre # Baso # Seg Neutrophils % Seg Neuts % (Manual) Lymphocytes % (Manual) Monocytes % (Manual) Eosinophils % (Manual) Basophils % (Manual) Nucleated RBC % Seg Neutrophils # Seg Neutrophils # Man Lymphocytes # (Manual) Monocytes # (Manual) Eosinophils # (Manual) PT INR Fibrinogen dRVVT Confirm Interp Factor V Activity POC ABG pH 7.561 H POC ABG pCO2 24.4 L POC ABG pO2 77 L Sodium 148 H Potassium Chloride Carbon Dioxide BUN 104 H Creatinine 3.0 H Glucose 149 H POC Glucose Lactic Acid Calcium Phosphorus Magnesium Direct Bilirubin ALT Alkaline Phosphatase 138 H Troponin T C-Reactive Protein Total Protein 6.2 L Albumin 1.5 L Triglycerides Cholesterol LDL Cholesterol Direct HDL Cholesterol Urine WBC (Auto) Urine Creatinine Urine Total Protein Vancomycin Trough Rheumatoid Factor Complement C4 Miscellaneous Test Crossmatch 10/17/16 10/17/16 10/17/16 06:02 12:17 17:14 WBC RBC Hgb Hct MCV MCH MCHC RDW Plt Count Lymph % (Auto) Centre % (Auto) Lymph # Centre # Baso # Seg Neutrophils % Seg Neuts % (Manual) Lymphocytes % (Manual) Monocytes % (Manual) Eosinophils % (Manual) Basophils % (Manual) Nucleated RBC % Seg Neutrophils # Seg Neutrophils # Man Lymphocytes # (Manual) Monocytes # (Manual) Eosinophils # (Manual) PT INR Fibrinogen dRVVT Confirm Interp Factor V Activity POC ABG pH POC ABG pCO2 POC ABG pO2 Sodium Potassium Chloride Carbon Dioxide BUN Creatinine Glucose POC Glucose 170 H 167 H 126 H Lactic Acid Calcium Phosphorus Magnesium Direct Bilirubin ALT Alkaline Phosphatase Troponin T C-Reactive Protein Total Protein Albumin Triglycerides Cholesterol LDL Cholesterol Direct HDL Cholesterol Urine WBC (Auto) Urine Creatinine Urine Total Protein Vancomycin Trough Rheumatoid Factor Complement C4 Miscellaneous Test Crossmatch 10/17/16 10/18/16 10/18/16 23:17 04:00 04:00 WBC 20.7 H RBC 2.47 L Hgb 7.4 L Hct 22.9 L MCV MCH MCHC RDW 17.5 H Plt Count Lymph % (Auto) Centre % (Auto) Lymph # Centre # Baso # Seg Neutrophils % Seg Neuts % (Manual) Lymphocytes % (Manual) Monocytes % (Manual) Eosinophils % (Manual) Basophils % (Manual) Nucleated RBC % Seg Neutrophils # Seg Neutrophils # Man Lymphocytes # (Manual) Monocytes # (Manual) Eosinophils # (Manual) PT INR Fibrinogen dRVVT Confirm Interp Factor V Activity POC ABG pH POC ABG pCO2 POC ABG pO2 Sodium 149 H Potassium Chloride 107.9 H Carbon Dioxide 20 L BUN 117 H Creatinine 3.2 H Glucose 119 H POC Glucose 121 H Lactic Acid Calcium Phosphorus Magnesium Direct Bilirubin ALT Alkaline Phosphatase Troponin T C-Reactive Protein Total Protein Albumin Triglycerides Cholesterol LDL Cholesterol Direct HDL Cholesterol Urine WBC (Auto) Urine Creatinine Urine Total Protein Vancomycin Trough Rheumatoid Factor Complement C4 Miscellaneous Test Crossmatch 10/18/16 10/18/16 10/18/16 05:23 10:46 17:30 WBC RBC Hgb Hct MCV MCH MCHC RDW Plt Count Lymph % (Auto) Centre % (Auto) Lymph # Centre # Baso # Seg Neutrophils % Seg Neuts % (Manual) Lymphocytes % (Manual) Monocytes % (Manual) Eosinophils % (Manual) Basophils % (Manual) Nucleated RBC % Seg Neutrophils # Seg Neutrophils # Man Lymphocytes # (Manual) Monocytes # (Manual) Eosinophils # (Manual) PT INR Fibrinogen dRVVT Confirm Interp Factor V Activity POC ABG pH POC ABG pCO2 POC ABG pO2 Sodium Potassium Chloride Carbon Dioxide BUN Creatinine Glucose POC Glucose 119 H 155 H 124 H Lactic Acid Calcium Phosphorus Magnesium Direct Bilirubin ALT Alkaline Phosphatase Troponin T C-Reactive Protein Total Protein Albumin Triglycerides Cholesterol LDL Cholesterol Direct HDL Cholesterol Urine WBC (Auto) Urine Creatinine Urine Total Protein Vancomycin Trough Rheumatoid Factor Complement C4 Miscellaneous Test Crossmatch 10/19/16 10/19/16 10/19/16 04:00 04:00 05:25 WBC 17.4 H RBC 2.54 L Hgb 7.7 L Hct 23.6 L MCV MCH MCHC RDW 17.3 H Plt Count Lymph % (Auto) Centre % (Auto) Lymph # Centre # Baso # Seg Neutrophils % Seg Neuts % (Manual) Lymphocytes % (Manual) Monocytes % (Manual) Eosinophils % (Manual) Basophils % (Manual) Nucleated RBC % Seg Neutrophils # Seg Neutrophils # Man Lymphocytes # (Manual) Monocytes # (Manual) Eosinophils # (Manual) PT INR Fibrinogen dRVVT Confirm Interp Factor V Activity POC ABG pH POC ABG pCO2 POC ABG pO2 Sodium Potassium Chloride Carbon Dioxide BUN 72 H Creatinine 2.1 H Glucose 116 H POC Glucose 119 H Lactic Acid Calcium Phosphorus Magnesium Direct Bilirubin ALT Alkaline Phosphatase Troponin T C-Reactive Protein Total Protein Albumin Triglycerides Cholesterol LDL Cholesterol Direct HDL Cholesterol Urine WBC (Auto) Urine Creatinine Urine Total Protein Vancomycin Trough Rheumatoid Factor Complement C4 Miscellaneous Test Crossmatch 10/19/16 10/19/16 10/20/16 11:46 23:59 06:00 WBC RBC Hgb Hct MCV MCH MCHC RDW Plt Count Lymph % (Auto) Centre % (Auto) Lymph # Centre # Baso # Seg Neutrophils % Seg Neuts % (Manual) Lymphocytes % (Manual) Monocytes % (Manual) Eosinophils % (Manual) Basophils % (Manual) Nucleated RBC % Seg Neutrophils # Seg Neutrophils # Man Lymphocytes # (Manual) Monocytes # (Manual) Eosinophils # (Manual) PT INR Fibrinogen dRVVT Confirm Interp Factor V Activity POC ABG pH POC ABG pCO2 POC ABG pO2 Sodium Potassium Chloride Carbon Dioxide 17 L BUN 94 H Creatinine 2.7 H Glucose POC Glucose 116 H 117 H Lactic Acid Calcium Phosphorus Magnesium Direct Bilirubin ALT Alkaline Phosphatase Troponin T C-Reactive Protein Total Protein Albumin Triglycerides Cholesterol LDL Cholesterol Direct HDL Cholesterol Urine WBC (Auto) Urine Creatinine Urine Total Protein Vancomycin Trough Rheumatoid Factor Complement C4 Miscellaneous Test Crossmatch 10/20/16 10/20/16 10/20/16 06:00 11:49 16:00 WBC 19.7 H RBC 2.51 L Hgb 7.7 L Hct 23.5 L MCV MCH MCHC RDW 17.5 H Plt Count Lymph % (Auto) Centre % (Auto) Lymph # Centre # Baso # Seg Neutrophils % Seg Neuts % (Manual) Lymphocytes % (Manual) Monocytes % (Manual) Eosinophils % (Manual) Basophils % (Manual) Nucleated RBC % Seg Neutrophils # Seg Neutrophils # Man Lymphocytes # (Manual) Monocytes # (Manual) Eosinophils # (Manual) PT INR Fibrinogen dRVVT Confirm Interp Factor V Activity POC ABG pH POC ABG pCO2 POC ABG pO2 Sodium Potassium Chloride Carbon Dioxide BUN Creatinine Glucose POC Glucose 117 H Lactic Acid Calcium Phosphorus Magnesium Direct Bilirubin ALT Alkaline Phosphatase Troponin T C-Reactive Protein Total Protein Albumin Triglycerides Cholesterol LDL Cholesterol Direct HDL Cholesterol Urine WBC (Auto) Urine Creatinine Urine Total Protein Vancomycin Trough Rheumatoid Factor Complement C4 Miscellaneous Test Flexitest 1 H Crossmatch 10/20/16 10/20/16 10/21/16 18:36 23:39 04:00 WBC RBC Hgb Hct MCV MCH MCHC RDW Plt Count Lymph % (Auto) Centre % (Auto) Lymph # Centre # Baso # Seg Neutrophils % Seg Neuts % (Manual) Lymphocytes % (Manual) Monocytes % (Manual) Eosinophils % (Manual) Basophils % (Manual) Nucleated RBC % Seg Neutrophils # Seg Neutrophils # Man Lymphocytes # (Manual) Monocytes # (Manual) Eosinophils # (Manual) PT INR Fibrinogen dRVVT Confirm Interp Factor V Activity POC ABG pH POC ABG pCO2 POC ABG pO2 Sodium Potassium 5.4 H D Chloride Carbon Dioxide 15 L BUN 110 H Creatinine 3.0 H Glucose POC Glucose 127 H 114 H Lactic Acid Calcium Phosphorus Magnesium Direct Bilirubin ALT Alkaline Phosphatase Troponin T C-Reactive Protein Total Protein Albumin Triglycerides Cholesterol LDL Cholesterol Direct HDL Cholesterol Urine WBC (Auto) Urine Creatinine Urine Total Protein Vancomycin Trough Rheumatoid Factor Complement C4 Miscellaneous Test Crossmatch 10/21/16 10/21/16 10/22/16 05:54 23:46 05:18 WBC RBC Hgb Hct MCV MCH MCHC RDW Plt Count Lymph % (Auto) Centre % (Auto) Lymph # Centre # Baso # Seg Neutrophils % Seg Neuts % (Manual) Lymphocytes % (Manual) Monocytes % (Manual) Eosinophils % (Manual) Basophils % (Manual) Nucleated RBC % Seg Neutrophils # Seg Neutrophils # Man Lymphocytes # (Manual) Monocytes # (Manual) Eosinophils # (Manual) PT INR Fibrinogen dRVVT Confirm Interp Factor V Activity POC ABG pH POC ABG pCO2 POC ABG pO2 Sodium Potassium Chloride Carbon Dioxide BUN Creatinine Glucose POC Glucose 119 H 108 H 109 H Lactic Acid Calcium Phosphorus Magnesium Direct Bilirubin ALT Alkaline Phosphatase Troponin T C-Reactive Protein Total Protein Albumin Triglycerides Cholesterol LDL Cholesterol Direct HDL Cholesterol Urine WBC (Auto) Urine Creatinine Urine Total Protein Vancomycin Trough Rheumatoid Factor Complement C4 Miscellaneous Test Crossmatch 10/22/16 10/22/16 10/22/16 06:40 06:40 06:40 WBC 14.0 H RBC 2.03 L Hgb 7.0 L Hct 20.5 L MCV 98 H MCH 34 H MCHC 35 H RDW 17.8 H Plt Count Lymph % (Auto) Centre % (Auto) 9.9 H Lymph # Centre # 1.4 H Baso # 0.2 H Seg Neutrophils % 72.0 H Seg Neuts % (Manual) Lymphocytes % (Manual) Monocytes % (Manual) Eosinophils % (Manual) Basophils % (Manual) Nucleated RBC % Seg Neutrophils # 10.0 H Seg Neutrophils # Man Lymphocytes # (Manual) Monocytes # (Manual) Eosinophils # (Manual) PT INR Fibrinogen dRVVT Confirm Interp Factor V Activity POC ABG pH POC ABG pCO2 POC ABG pO2 Sodium 130 L D Potassium Chloride 92.4 L Carbon Dioxide 20 L BUN 50 H Creatinine 1.6 H Glucose 589 H* POC Glucose Lactic Acid Calcium 7.8 L D Phosphorus Magnesium 1.60 L Direct Bilirubin ALT Alkaline Phosphatase Troponin T C-Reactive Protein Total Protein Albumin Triglycerides Cholesterol LDL Cholesterol Direct HDL Cholesterol Urine WBC (Auto) Urine Creatinine Urine Total Protein Vancomycin Trough Rheumatoid Factor Complement C4 Miscellaneous Test Crossmatch 10/22/16 10/22/16 10/22/16 11:39 16:44 23:36 WBC RBC Hgb Hct MCV MCH MCHC RDW Plt Count Lymph % (Auto) Centre % (Auto) Lymph # Centre # Baso # Seg Neutrophils % Seg Neuts % (Manual) Lymphocytes % (Manual) Monocytes % (Manual) Eosinophils % (Manual) Basophils % (Manual) Nucleated RBC % Seg Neutrophils # Seg Neutrophils # Man Lymphocytes # (Manual) Monocytes # (Manual) Eosinophils # (Manual) PT INR Fibrinogen dRVVT Confirm Interp Factor V Activity POC ABG pH POC ABG pCO2 POC ABG pO2 Sodium Potassium Chloride Carbon Dioxide BUN Creatinine Glucose POC Glucose 142 H 163 H 123 H Lactic Acid Calcium Phosphorus Magnesium Direct Bilirubin ALT Alkaline Phosphatase Troponin T C-Reactive Protein Total Protein Albumin Triglycerides Cholesterol LDL Cholesterol Direct HDL Cholesterol Urine WBC (Auto) Urine Creatinine Urine Total Protein Vancomycin Trough Rheumatoid Factor Complement C4 Miscellaneous Test Crossmatch 10/23/16 10/23/16 10/23/16 04:58 06:00 12:12 WBC RBC Hgb Hct MCV MCH MCHC RDW Plt Count Lymph % (Auto) Centre % (Auto) Lymph # Centre # Baso # Seg Neutrophils % Seg Neuts % (Manual) Lymphocytes % (Manual) Monocytes % (Manual) Eosinophils % (Manual) Basophils % (Manual) Nucleated RBC % Seg Neutrophils # Seg Neutrophils # Man Lymphocytes # (Manual) Monocytes # (Manual) Eosinophils # (Manual) PT INR Fibrinogen dRVVT Confirm Interp Factor V Activity POC ABG pH POC ABG pCO2 POC ABG pO2 Sodium 133 L Potassium 3.5 L Chloride 96.1 L Carbon Dioxide 18 L BUN 76 H Creatinine 2.1 H Glucose POC Glucose 133 H 138 H Lactic Acid Calcium 8.3 L Phosphorus Magnesium Direct Bilirubin ALT Alkaline Phosphatase Troponin T C-Reactive Protein Total Protein Albumin Triglycerides Cholesterol LDL Cholesterol Direct HDL Cholesterol Urine WBC (Auto) Urine Creatinine Urine Total Protein Vancomycin Trough Rheumatoid Factor Complement C4 Miscellaneous Test Crossmatch 10/23/16 10/23/16 10/24/16 16:53 23:37 04:00 WBC RBC Hgb Hct MCV MCH MCHC RDW Plt Count Lymph % (Auto) Centre % (Auto) Lymph # Centre # Baso # Seg Neutrophils % Seg Neuts % (Manual) Lymphocytes % (Manual) Monocytes % (Manual) Eosinophils % (Manual) Basophils % (Manual) Nucleated RBC % Seg Neutrophils # Seg Neutrophils # Man Lymphocytes # (Manual) Monocytes # (Manual) Eosinophils # (Manual) PT INR Fibrinogen dRVVT Confirm Interp Factor V Activity POC ABG pH POC ABG pCO2 POC ABG pO2 Sodium 131 L Potassium Chloride 94.5 L Carbon Dioxide 19 L BUN 97 H Creatinine 2.6 H Glucose 110 H POC Glucose 125 H 123 H Lactic Acid Calcium 8.3 L Phosphorus Magnesium Direct Bilirubin ALT Alkaline Phosphatase Troponin T C-Reactive Protein Total Protein Albumin Triglycerides Cholesterol LDL Cholesterol Direct HDL Cholesterol Urine WBC (Auto) Urine Creatinine Urine Total Protein Vancomycin Trough Rheumatoid Factor Complement C4 Miscellaneous Test Crossmatch 10/24/16 10/24/16 10/24/16 07:49 11:39 17:52 WBC RBC Hgb 6.0 L Hct 19.7 L* MCV MCH MCHC RDW Plt Count Lymph % (Auto) Centre % (Auto) Lymph # Centre # Baso # Seg Neutrophils % Seg Neuts % (Manual) Lymphocytes % (Manual) Monocytes % (Manual) Eosinophils % (Manual) Basophils % (Manual) Nucleated RBC % Seg Neutrophils # Seg Neutrophils # Man Lymphocytes # (Manual) Monocytes # (Manual) Eosinophils # (Manual) PT INR Fibrinogen dRVVT Confirm Interp Factor V Activity POC ABG pH POC ABG pCO2 POC ABG pO2 Sodium Potassium Chloride Carbon Dioxide BUN Creatinine Glucose POC Glucose 106 H 158 H Lactic Acid Calcium Phosphorus Magnesium Direct Bilirubin ALT Alkaline Phosphatase Troponin T C-Reactive Protein Total Protein Albumin Triglycerides Cholesterol LDL Cholesterol Direct HDL Cholesterol Urine WBC (Auto) Urine Creatinine Urine Total Protein Vancomycin Trough Rheumatoid Factor Complement C4 Miscellaneous Test Crossmatch 10/24/16 10/24/16 10/24/16 20:00 22:27 Unknown WBC RBC Hgb 9.4 L D Hct 27.5 L D MCV MCH MCHC RDW Plt Count Lymph % (Auto) Centre % (Auto) Lymph # Centre # Baso # Seg Neutrophils % Seg Neuts % (Manual) Lymphocytes % (Manual) Monocytes % (Manual) Eosinophils % (Manual) Basophils % (Manual) Nucleated RBC % Seg Neutrophils # Seg Neutrophils # Man Lymphocytes # (Manual) Monocytes # (Manual) Eosinophils # (Manual) PT INR Fibrinogen dRVVT Confirm Interp Factor V Activity POC ABG pH POC ABG pCO2 POC ABG pO2 Sodium Potassium Chloride Carbon Dioxide BUN Creatinine Glucose POC Glucose 125 H Lactic Acid Calcium Phosphorus Magnesium Direct Bilirubin ALT Alkaline Phosphatase Troponin T C-Reactive Protein Total Protein Albumin Triglycerides Cholesterol LDL Cholesterol Direct HDL Cholesterol Urine WBC (Auto) Urine Creatinine Urine Total Protein Vancomycin Trough Rheumatoid Factor Complement C4 Miscellaneous Test Crossmatch See Detail 10/25/16 10/25/16 10/25/16 04:00 04:00 04:00 WBC 14.2 H RBC 2.98 L Hgb 9.0 L Hct 26.2 L MCV MCH MCHC RDW 16.6 H Plt Count Lymph % (Auto) Centre % (Auto) 10.7 H Lymph # Centre # 1.5 H Baso # Seg Neutrophils % 73.6 H Seg Neuts % (Manual) Lymphocytes % (Manual) Monocytes % (Manual) Eosinophils % (Manual) Basophils % (Manual) Nucleated RBC % Seg Neutrophils # 10.5 H Seg Neutrophils # Man Lymphocytes # (Manual) Monocytes # (Manual) Eosinophils # (Manual) PT INR Fibrinogen dRVVT Confirm Interp Factor V Activity POC ABG pH POC ABG pCO2 POC ABG pO2 Sodium 132 L Potassium Chloride 94.7 L Carbon Dioxide BUN 51 H Creatinine 1.6 H Glucose 130 H POC Glucose Lactic Acid Calcium 8.3 L Phosphorus 1.60 L D Magnesium Direct Bilirubin ALT Alkaline Phosphatase Troponin T C-Reactive Protein Total Protein Albumin Triglycerides Cholesterol LDL Cholesterol Direct HDL Cholesterol Urine WBC (Auto) Urine Creatinine Urine Total Protein Vancomycin Trough Rheumatoid Factor Complement C4 Miscellaneous Test Crossmatch 10/25/16 10/25/16 10/25/16 04:32 11:48 17:22 WBC RBC Hgb Hct MCV MCH MCHC RDW Plt Count Lymph % (Auto) Centre % (Auto) Lymph # Centre # Baso # Seg Neutrophils % Seg Neuts % (Manual) Lymphocytes % (Manual) Monocytes % (Manual) Eosinophils % (Manual) Basophils % (Manual) Nucleated RBC % Seg Neutrophils # Seg Neutrophils # Man Lymphocytes # (Manual) Monocytes # (Manual) Eosinophils # (Manual) PT INR Fibrinogen dRVVT Confirm Interp Factor V Activity POC ABG pH POC ABG pCO2 POC ABG pO2 Sodium Potassium Chloride Carbon Dioxide BUN Creatinine Glucose POC Glucose 124 H 171 H 120 H Lactic Acid Calcium Phosphorus Magnesium Direct Bilirubin ALT Alkaline Phosphatase Troponin T C-Reactive Protein Total Protein Albumin Triglycerides Cholesterol LDL Cholesterol Direct HDL Cholesterol Urine WBC (Auto) Urine Creatinine Urine Total Protein Vancomycin Trough Rheumatoid Factor Complement C4 Miscellaneous Test Crossmatch 10/26/16 10/26/16 10/26/16 04:54 07:06 07:06 WBC 16.9 H RBC 3.06 L Hgb 9.1 L Hct 26.9 L MCV MCH MCHC RDW 16.9 H Plt Count Lymph % (Auto) Centre % (Auto) Lymph # Centre # Baso # Seg Neutrophils % Seg Neuts % (Manual) 71.0 H Lymphocytes % (Manual) 5.0 L Monocytes % (Manual) 12.0 H Eosinophils % (Manual) Basophils % (Manual) Nucleated RBC % Seg Neutrophils # Seg Neutrophils # Man 12.0 H Lymphocytes # (Manual) 0.8 L Monocytes # (Manual) 2.0 H Eosinophils # (Manual) PT INR Fibrinogen dRVVT Confirm Interp Factor V Activity POC ABG pH POC ABG pCO2 POC ABG pO2 Sodium 135 L Potassium Chloride 97.1 L Carbon Dioxide BUN 73 H Creatinine 2.2 H Glucose 117 H POC Glucose 123 H Lactic Acid Calcium Phosphorus 1.70 L Magnesium Direct Bilirubin ALT Alkaline Phosphatase Troponin T C-Reactive Protein Total Protein Albumin Triglycerides Cholesterol LDL Cholesterol Direct HDL Cholesterol Urine WBC (Auto) Urine Creatinine Urine Total Protein Vancomycin Trough Rheumatoid Factor Complement C4 Miscellaneous Test Crossmatch 10/26/16 10/26/16 10/26/16 12:12 17:29 23:42 WBC RBC Hgb Hct MCV MCH MCHC RDW Plt Count Lymph % (Auto) Centre % (Auto) Lymph # Centre # Baso # Seg Neutrophils % Seg Neuts % (Manual) Lymphocytes % (Manual) Monocytes % (Manual) Eosinophils % (Manual) Basophils % (Manual) Nucleated RBC % Seg Neutrophils # Seg Neutrophils # Man Lymphocytes # (Manual) Monocytes # (Manual) Eosinophils # (Manual) PT INR Fibrinogen dRVVT Confirm Interp Factor V Activity POC ABG pH POC ABG pCO2 POC ABG pO2 Sodium Potassium Chloride Carbon Dioxide BUN Creatinine Glucose POC Glucose 126 H 161 H 118 H Lactic Acid Calcium Phosphorus Magnesium Direct Bilirubin ALT Alkaline Phosphatase Troponin T C-Reactive Protein Total Protein Albumin Triglycerides Cholesterol LDL Cholesterol Direct HDL Cholesterol Urine WBC (Auto) Urine Creatinine Urine Total Protein Vancomycin Trough Rheumatoid Factor Complement C4 Miscellaneous Test Crossmatch 10/27/16 10/27/16 10/27/16 05:03 06:30 06:30 WBC 13.9 H RBC 3.09 L Hgb 9.2 L Hct 27.5 L MCV MCH MCHC RDW 17.0 H Plt Count Lymph % (Auto) Centre % (Auto) Lymph # Centre # Baso # Seg Neutrophils % Seg Neuts % (Manual) 78.0 H Lymphocytes % (Manual) Monocytes % (Manual) Eosinophils % (Manual) Basophils % (Manual) Nucleated RBC % 2.0 H Seg Neutrophils # Seg Neutrophils # Man 10.8 H Lymphocytes # (Manual) Monocytes # (Manual) 1.0 H Eosinophils # (Manual) PT INR Fibrinogen dRVVT Confirm Interp Factor V Activity POC ABG pH POC ABG pCO2 POC ABG pO2 Sodium Potassium Chloride Carbon Dioxide BUN 40 H Creatinine 1.5 H Glucose 135 H POC Glucose 107 H Lactic Acid Calcium 8.3 L Phosphorus 1.30 L D Magnesium Direct Bilirubin ALT Alkaline Phosphatase Troponin T C-Reactive Protein Total Protein Albumin Triglycerides Cholesterol LDL Cholesterol Direct HDL Cholesterol Urine WBC (Auto) Urine Creatinine Urine Total Protein Vancomycin Trough Rheumatoid Factor Complement C4 Miscellaneous Test Crossmatch 10/27/16 10/27/16 10/27/16 13:27 18:07 23:40 WBC RBC Hgb Hct MCV MCH MCHC RDW Plt Count Lymph % (Auto) Centre % (Auto) Lymph # Centre # Baso # Seg Neutrophils % Seg Neuts % (Manual) Lymphocytes % (Manual) Monocytes % (Manual) Eosinophils % (Manual) Basophils % (Manual) Nucleated RBC % Seg Neutrophils # Seg Neutrophils # Man Lymphocytes # (Manual) Monocytes # (Manual) Eosinophils # (Manual) PT INR Fibrinogen dRVVT Confirm Interp Factor V Activity POC ABG pH POC ABG pCO2 POC ABG pO2 Sodium Potassium Chloride Carbon Dioxide BUN Creatinine Glucose POC Glucose 117 H 121 H 118 H Lactic Acid Calcium Phosphorus Magnesium Direct Bilirubin ALT Alkaline Phosphatase Troponin T C-Reactive Protein Total Protein Albumin Triglycerides Cholesterol LDL Cholesterol Direct HDL Cholesterol Urine WBC (Auto) Urine Creatinine Urine Total Protein Vancomycin Trough Rheumatoid Factor Complement C4 Miscellaneous Test Crossmatch 10/28/16 10/28/16 10/28/16 05:48 06:45 06:45 WBC 14.7 H RBC 3.05 L Hgb 9.0 L Hct 26.9 L MCV MCH MCHC RDW 16.8 H Plt Count Lymph % (Auto) 8.2 L Centre % (Auto) 8.4 H Lymph # Centre # 1.2 H Baso # Seg Neutrophils % 81.9 H Seg Neuts % (Manual) Lymphocytes % (Manual) Monocytes % (Manual) Eosinophils % (Manual) Basophils % (Manual) Nucleated RBC % Seg Neutrophils # 12.1 H Seg Neutrophils # Man Lymphocytes # (Manual) Monocytes # (Manual) Eosinophils # (Manual) PT INR Fibrinogen dRVVT Confirm Interp Factor V Activity POC ABG pH POC ABG pCO2 POC ABG pO2 Sodium Potassium Chloride Carbon Dioxide BUN 60 H Creatinine 1.9 H Glucose 120 H POC Glucose 114 H Lactic Acid Calcium Phosphorus Magnesium Direct Bilirubin ALT Alkaline Phosphatase Troponin T C-Reactive Protein Total Protein Albumin Triglycerides Cholesterol LDL Cholesterol Direct HDL Cholesterol Urine WBC (Auto) Urine Creatinine Urine Total Protein Vancomycin Trough Rheumatoid Factor Complement C4 Miscellaneous Test Crossmatch 10/28/16 10/28/16 10/29/16 17:08 23:50 05:10 WBC RBC Hgb Hct MCV MCH MCHC RDW Plt Count Lymph % (Auto) Centre % (Auto) Lymph # Centre # Baso # Seg Neutrophils % Seg Neuts % (Manual) Lymphocytes % (Manual) Monocytes % (Manual) Eosinophils % (Manual) Basophils % (Manual) Nucleated RBC % Seg Neutrophils # Seg Neutrophils # Man Lymphocytes # (Manual) Monocytes # (Manual) Eosinophils # (Manual) PT INR Fibrinogen dRVVT Confirm Interp Factor V Activity POC ABG pH POC ABG pCO2 POC ABG pO2 Sodium Potassium Chloride Carbon Dioxide BUN Creatinine Glucose POC Glucose 109 H 110 H 124 H Lactic Acid Calcium Phosphorus Magnesium Direct Bilirubin ALT Alkaline Phosphatase Troponin T C-Reactive Protein Total Protein Albumin Triglycerides Cholesterol LDL Cholesterol Direct HDL Cholesterol Urine WBC (Auto) Urine Creatinine Urine Total Protein Vancomycin Trough Rheumatoid Factor Complement C4 Miscellaneous Test Crossmatch 10/29/16 10/29/16 10/29/16 07:45 07:45 12:19 WBC 14.7 H RBC 3.15 L Hgb 9.3 L Hct 28.9 L MCV MCH MCHC RDW 17.0 H Plt Count Lymph % (Auto) 11.9 L Centre % (Auto) 8.6 H Lymph # Centre # 1.3 H Baso # Seg Neutrophils % 78.1 H Seg Neuts % (Manual) Lymphocytes % (Manual) Monocytes % (Manual) Eosinophils % (Manual) Basophils % (Manual) Nucleated RBC % Seg Neutrophils # 11.4 H Seg Neutrophils # Man Lymphocytes # (Manual) Monocytes # (Manual) Eosinophils # (Manual) PT INR Fibrinogen dRVVT Confirm Interp Factor V Activity POC ABG pH POC ABG pCO2 POC ABG pO2 Sodium Potassium 5.1 H Chloride Carbon Dioxide 19 L BUN 78 H Creatinine 2.2 H Glucose 116 H POC Glucose 118 H Lactic Acid Calcium Phosphorus Magnesium Direct Bilirubin ALT Alkaline Phosphatase Troponin T C-Reactive Protein Total Protein Albumin Triglycerides Cholesterol LDL Cholesterol Direct HDL Cholesterol Urine WBC (Auto) Urine Creatinine Urine Total Protein Vancomycin Trough Rheumatoid Factor Complement C4 Miscellaneous Test Crossmatch 10/29/16 10/30/16 10/30/16 17:49 01:52 03:28 WBC RBC Hgb Hct MCV MCH MCHC RDW Plt Count Lymph % (Auto) Centre % (Auto) Lymph # Centre # Baso # Seg Neutrophils % Seg Neuts % (Manual) Lymphocytes % (Manual) Monocytes % (Manual) Eosinophils % (Manual) Basophils % (Manual) Nucleated RBC % Seg Neutrophils # Seg Neutrophils # Man Lymphocytes # (Manual) Monocytes # (Manual) Eosinophils # (Manual) PT INR Fibrinogen dRVVT Confirm Interp Factor V Activity POC ABG pH POC ABG pCO2 POC ABG pO2 Sodium Potassium 5.4 H Chloride 97.5 L Carbon Dioxide 19 L BUN 90 H Creatinine 2.5 H Glucose POC Glucose 120 H 129 H Lactic Acid Calcium Phosphorus 5.20 H Magnesium Direct Bilirubin ALT Alkaline Phosphatase Troponin T C-Reactive Protein Total Protein Albumin Triglycerides Cholesterol LDL Cholesterol Direct HDL Cholesterol Urine WBC (Auto) Urine Creatinine Urine Total Protein Vancomycin Trough Rheumatoid Factor Complement C4 Miscellaneous Test Crossmatch 10/30/16 10/30/16 10/30/16 03:28 08:19 08:19 WBC 11.6 H 15.9 H RBC 2.75 L 2.82 L Hgb 7.9 L 8.3 L Hct 24.2 L 25.2 L MCV MCH MCHC RDW 16.7 H 17.2 H Plt Count Lymph % (Auto) Centre % (Auto) 9.8 H Lymph # Centre # 1.1 H Baso # Seg Neutrophils % 74.2 H Seg Neuts % (Manual) Lymphocytes % (Manual) Monocytes % (Manual) Eosinophils % (Manual) Basophils % (Manual) Nucleated RBC % Seg Neutrophils # 8.6 H Seg Neutrophils # Man Lymphocytes # (Manual) Monocytes # (Manual) Eosinophils # (Manual) PT INR Fibrinogen dRVVT Confirm Interp Factor V Activity POC ABG pH POC ABG pCO2 POC ABG pO2 Sodium Potassium 5.3 H Chloride 97.4 L Carbon Dioxide 19 L BUN 93 H Creatinine 2.6 H Glucose POC Glucose Lactic Acid Calcium Phosphorus Magnesium Direct Bilirubin ALT Alkaline Phosphatase Troponin T C-Reactive Protein Total Protein Albumin Triglycerides Cholesterol LDL Cholesterol Direct HDL Cholesterol Urine WBC (Auto) Urine Creatinine Urine Total Protein Vancomycin Trough Rheumatoid Factor Complement C4 Miscellaneous Test Crossmatch 10/30/16 10/30/16 10/31/16 17:11 23:56 00:40 WBC RBC Hgb Hct MCV MCH MCHC RDW Plt Count Lymph % (Auto) Centre % (Auto) Lymph # Centre # Baso # Seg Neutrophils % Seg Neuts % (Manual) Lymphocytes % (Manual) Monocytes % (Manual) Eosinophils % (Manual) Basophils % (Manual) Nucleated RBC % Seg Neutrophils # Seg Neutrophils # Man Lymphocytes # (Manual) Monocytes # (Manual) Eosinophils # (Manual) PT INR Fibrinogen dRVVT Confirm Interp Factor V Activity POC ABG pH POC ABG pCO2 POC ABG pO2 Sodium Potassium Chloride Carbon Dioxide BUN Creatinine Glucose POC Glucose 106 H 117 H 120 H Lactic Acid Calcium Phosphorus Magnesium Direct Bilirubin ALT Alkaline Phosphatase Troponin T C-Reactive Protein Total Protein Albumin Triglycerides Cholesterol LDL Cholesterol Direct HDL Cholesterol Urine WBC (Auto) Urine Creatinine Urine Total Protein Vancomycin Trough Rheumatoid Factor Complement C4 Miscellaneous Test Crossmatch 10/31/16 10/31/16 10/31/16 05:43 07:15 07:15 WBC 12.1 H RBC 2.63 L Hgb 7.7 L Hct 23.3 L MCV MCH MCHC RDW 16.7 H Plt Count Lymph % (Auto) 11.7 L Centre % (Auto) 7.7 H Lymph # Centre # 0.9 H Baso # Seg Neutrophils % 78.0 H Seg Neuts % (Manual) Lymphocytes % (Manual) Monocytes % (Manual) Eosinophils % (Manual) Basophils % (Manual) Nucleated RBC % Seg Neutrophils # 9.4 H Seg Neutrophils # Man Lymphocytes # (Manual) Monocytes # (Manual) Eosinophils # (Manual) PT INR Fibrinogen dRVVT Confirm Interp Factor V Activity POC ABG pH POC ABG pCO2 POC ABG pO2 Sodium Potassium Chloride 96.4 L Carbon Dioxide 21 L BUN 99 H Creatinine 2.6 H Glucose 144 H POC Glucose 125 H Lactic Acid Calcium Phosphorus 4.80 H Magnesium Direct Bilirubin ALT Alkaline Phosphatase Troponin T C-Reactive Protein Total Protein Albumin Triglycerides Cholesterol LDL Cholesterol Direct HDL Cholesterol Urine WBC (Auto) Urine Creatinine Urine Total Protein Vancomycin Trough Rheumatoid Factor Complement C4 Miscellaneous Test Crossmatch 10/31/16 10/31/16 11/01/16 11:46 18:34 00:20 WBC RBC Hgb Hct MCV MCH MCHC RDW Plt Count Lymph % (Auto) Centre % (Auto) Lymph # Centre # Baso # Seg Neutrophils % Seg Neuts % (Manual) Lymphocytes % (Manual) Monocytes % (Manual) Eosinophils % (Manual) Basophils % (Manual) Nucleated RBC % Seg Neutrophils # Seg Neutrophils # Man Lymphocytes # (Manual) Monocytes # (Manual) Eosinophils # (Manual) PT INR Fibrinogen dRVVT Confirm Interp Factor V Activity POC ABG pH POC ABG pCO2 POC ABG pO2 Sodium Potassium Chloride Carbon Dioxide BUN Creatinine Glucose POC Glucose 159 H 140 H 132 H Lactic Acid Calcium Phosphorus Magnesium Direct Bilirubin ALT Alkaline Phosphatase Troponin T C-Reactive Protein Total Protein Albumin Triglycerides Cholesterol LDL Cholesterol Direct HDL Cholesterol Urine WBC (Auto) Urine Creatinine Urine Total Protein Vancomycin Trough Rheumatoid Factor Complement C4 Miscellaneous Test Crossmatch 11/01/16 11/01/16 11/01/16 04:55 04:55 06:11 WBC 11.2 H RBC 2.68 L Hgb 7.5 L Hct 23.7 L MCV MCH MCHC RDW 16.1 H Plt Count Lymph % (Auto) Centre % (Auto) 9.8 H Lymph # Centre # 1.1 H Baso # Seg Neutrophils % 70.8 H Seg Neuts % (Manual) Lymphocytes % (Manual) Monocytes % (Manual) Eosinophils % (Manual) Basophils % (Manual) Nucleated RBC % Seg Neutrophils # 7.9 H Seg Neutrophils # Man Lymphocytes # (Manual) Monocytes # (Manual) Eosinophils # (Manual) PT INR Fibrinogen dRVVT Confirm Interp Factor V Activity POC ABG pH POC ABG pCO2 POC ABG pO2 Sodium Potassium 3.3 L D Chloride Carbon Dioxide BUN 61 H Creatinine 1.9 H Glucose 114 H POC Glucose 115 H Lactic Acid Calcium Phosphorus 1.80 L D Magnesium Direct Bilirubin ALT Alkaline Phosphatase Troponin T C-Reactive Protein Total Protein Albumin Triglycerides Cholesterol LDL Cholesterol Direct HDL Cholesterol Urine WBC (Auto) Urine Creatinine Urine Total Protein Vancomycin Trough Rheumatoid Factor Complement C4 Miscellaneous Test Crossmatch 11/01/16 11/01/16 11/01/16 12:29 18:23 23:58 WBC RBC Hgb Hct MCV MCH MCHC RDW Plt Count Lymph % (Auto) Centre % (Auto) Lymph # Centre # Baso # Seg Neutrophils % Seg Neuts % (Manual) Lymphocytes % (Manual) Monocytes % (Manual) Eosinophils % (Manual) Basophils % (Manual) Nucleated RBC % Seg Neutrophils # Seg Neutrophils # Man Lymphocytes # (Manual) Monocytes # (Manual) Eosinophils # (Manual) PT INR Fibrinogen dRVVT Confirm Interp Factor V Activity POC ABG pH POC ABG pCO2 POC ABG pO2 Sodium Potassium Chloride Carbon Dioxide BUN Creatinine Glucose POC Glucose 142 H 143 H 128 H Lactic Acid Calcium Phosphorus Magnesium Direct Bilirubin ALT Alkaline Phosphatase Troponin T C-Reactive Protein Total Protein Albumin Triglycerides Cholesterol LDL Cholesterol Direct HDL Cholesterol Urine WBC (Auto) Urine Creatinine Urine Total Protein Vancomycin Trough Rheumatoid Factor Complement C4 Miscellaneous Test Crossmatch 11/02/16 11/02/16 11/02/16 04:16 05:29 11:58 WBC RBC Hgb Hct MCV MCH MCHC RDW Plt Count Lymph % (Auto) Centre % (Auto) Lymph # Centre # Baso # Seg Neutrophils % Seg Neuts % (Manual) Lymphocytes % (Manual) Monocytes % (Manual) Eosinophils % (Manual) Basophils % (Manual) Nucleated RBC % Seg Neutrophils # Seg Neutrophils # Man Lymphocytes # (Manual) Monocytes # (Manual) Eosinophils # (Manual) PT INR Fibrinogen dRVVT Confirm Interp Factor V Activity POC ABG pH POC ABG pCO2 POC ABG pO2 Sodium Potassium 3.1 L Chloride Carbon Dioxide BUN 73 H Creatinine 2.3 H Glucose 112 H POC Glucose 135 H 149 H Lactic Acid Calcium Phosphorus Magnesium Direct Bilirubin ALT Alkaline Phosphatase Troponin T C-Reactive Protein Total Protein Albumin Triglycerides Cholesterol LDL Cholesterol Direct HDL Cholesterol Urine WBC (Auto) Urine Creatinine Urine Total Protein Vancomycin Trough Rheumatoid Factor Complement C4 Miscellaneous Test Crossmatch 11/02/16 11/02/16 11/03/16 17:42 22:54 06:00 WBC RBC Hgb Hct MCV MCH MCHC RDW Plt Count Lymph % (Auto) Centre % (Auto) Lymph # Centre # Baso # Seg Neutrophils % Seg Neuts % (Manual) Lymphocytes % (Manual) Monocytes % (Manual) Eosinophils % (Manual) Basophils % (Manual) Nucleated RBC % Seg Neutrophils # Seg Neutrophils # Man Lymphocytes # (Manual) Monocytes # (Manual) Eosinophils # (Manual) PT INR Fibrinogen dRVVT Confirm Interp Factor V Activity POC ABG pH POC ABG pCO2 POC ABG pO2 Sodium Potassium Chloride 96.7 L Carbon Dioxide BUN 41 H Creatinine 1.5 H Glucose 145 H POC Glucose 182 H 115 H Lactic Acid Calcium Phosphorus 1.60 L D Magnesium 1.50 L Direct Bilirubin ALT Alkaline Phosphatase Troponin T C-Reactive Protein Total Protein Albumin Triglycerides Cholesterol LDL Cholesterol Direct HDL Cholesterol Urine WBC (Auto) Urine Creatinine Urine Total Protein Vancomycin Trough Rheumatoid Factor Complement C4 Miscellaneous Test Crossmatch 11/03/16 11/03/16 11/03/16 11:53 17:45 23:37 WBC RBC Hgb Hct MCV MCH MCHC RDW Plt Count Lymph % (Auto) Centre % (Auto) Lymph # Centre # Baso # Seg Neutrophils % Seg Neuts % (Manual) Lymphocytes % (Manual) Monocytes % (Manual) Eosinophils % (Manual) Basophils % (Manual) Nucleated RBC % Seg Neutrophils # Seg Neutrophils # Man Lymphocytes # (Manual) Monocytes # (Manual) Eosinophils # (Manual) PT INR Fibrinogen dRVVT Confirm Interp Factor V Activity POC ABG pH POC ABG pCO2 POC ABG pO2 Sodium Potassium Chloride Carbon Dioxide BUN Creatinine Glucose POC Glucose 131 H 134 H 113 H Lactic Acid Calcium Phosphorus Magnesium Direct Bilirubin ALT Alkaline Phosphatase Troponin T C-Reactive Protein Total Protein Albumin Triglycerides Cholesterol LDL Cholesterol Direct HDL Cholesterol Urine WBC (Auto) Urine Creatinine Urine Total Protein Vancomycin Trough Rheumatoid Factor Complement C4 Miscellaneous Test Crossmatch 11/04/16 11/04/16 05:41 06:00 WBC RBC Hgb Hct MCV MCH MCHC RDW Plt Count Lymph % (Auto) Centre % (Auto) Lymph # Centre # Baso # Seg Neutrophils % Seg Neuts % (Manual) Lymphocytes % (Manual) Monocytes % (Manual) Eosinophils % (Manual) Basophils % (Manual) Nucleated RBC % Seg Neutrophils # Seg Neutrophils # Man Lymphocytes # (Manual) Monocytes # (Manual) Eosinophils # (Manual) PT INR Fibrinogen dRVVT Confirm Interp Factor V Activity POC ABG pH POC ABG pCO2 POC ABG pO2 Sodium Potassium Chloride 96.7 L Carbon Dioxide BUN 52 H Creatinine 1.9 H Glucose 126 H POC Glucose 137 H Lactic Acid Calcium Phosphorus Magnesium Direct Bilirubin ALT Alkaline Phosphatase Troponin T C-Reactive Protein Total Protein Albumin Triglycerides Cholesterol LDL Cholesterol Direct HDL Cholesterol Urine WBC (Auto) Urine Creatinine Urine Total Protein Vancomycin Trough Rheumatoid Factor Complement C4 Miscellaneous Test Crossmatch Allied health notes reviewed: RT
[2016-11-04] MEDS ORDERED: INTRALIPID 20% 250 ML IV SCH (20:00)
[2016-11-04] MEDS ORDERED: TPN ADULT 2,016 ML IV SCH ×3 (20:00)
[2016-11-05] MEDS: LOPRESSOR PO SCH ×5 (01:45→23:02)
[2016-11-05 03:44] LABS: BUN/Creatinine Ratio 24.61; Calcium 7.8 mg/dL (8.4-10.2)
[2016-11-05] MEDS: HumuLIN R SUB-Q SCH ×4 (05:51→22:25)
[2016-11-05] MEDS: APRESOLINE IV PRN ×2 (06:57→13:00)
[2016-11-05] MEDS ORDERED: CATAPRES-TTS PATCH TD SCH (08:00)
[2016-11-05] MEDS: PROTONIX FEEDTUBE SCH (09:41)
[2016-11-05] MEDS: NORVASC PO SCH (09:41)
--- NOTE | 2016-11-05 09:46 | Progress Note ---
Subjective Principal diagnosis: Acute resp failure on MVS; S/P Acute CVA; Acute Encephalopathy; JUANITA Interval history: Patient was seen today for follow-up on multiple renal related issues patient did receive dialysis yesterday still continues to be tachycardic on multiple medications for blood pressure Events of this hospitalization were noted Vitals labs intake and output medications were reviewed from today Allergies: Reviewed Social history: Reviewed Family history: Reviewed Physical examination HEENT: Mild pallor no icterus Neck: Supple no JVD Chest: Few faint crackles at the bases Heart: Regular rate and rhythm S1-S2 heard no S3-S4, tachycardic 1 20 bpm Abdomen: Soft nontender no renal bruit no CVA tenderness no suprapubic fullness Extremity: Mild edema dry skin no peripheral cyanosis pulses palpable Neurological: Alert awake Musculoskeletal: No joint effusion noted Assessment and plan Acute on chronic renal failure patient is currently dialysis dependent and is being dialyzed, baseline creatinine around 1.7 physical significant improvement in renal function patient continues to have labile heart rate and blood pressure At this time I would like to increase the Lopressor and add losartan and follow Discontinue clonidine and amlodipine for now If needed we'll adjust the dose of losartan patient does appear to have renal vascular hypertension History of CVA we will discontinue erythropoietin if needed she can get packed red blood cell transfusion Respiratory failure, anemia,GI bleed, sepsis, candidemia, left renal artery stenosis Critically ill prognosis guarded to poor Objective - Vital Signs Vital signs: Vital Signs - 12hr 11/04/16 11/04/16 11/04/16 22:00 22:30 23:00 Temperature Pulse Rate 115 H 114 H 119 H Respiratory 23 18 23 Rate Respiratory Rate [ Generalized] Blood Pressure 147/85 147/79 141/80 O2 Sat by Pulse 100 100 100 Oximetry O2 Sat by Pulse Oximetry [ Assessment] 11/04/16 11/04/16 11/04/16 23:17 23:29 23:30 Temperature 100.7 F H Pulse Rate 128 H 122 H Respiratory 25 H 22 Rate Respiratory 22 Rate [ Generalized] Blood Pressure 141/80 147/87 O2 Sat by Pulse 100 100 Oximetry O2 Sat by Pulse Oximetry [ Assessment] 11/05/16 11/05/16 11/05/16 00:00 00:20 00:31 Temperature Pulse Rate 123 H 126 H 126 H Respiratory 22 24 Rate Respiratory Rate [ Generalized] Blood Pressure 155/92 152/95 O2 Sat by Pulse 100 100 100 Oximetry O2 Sat by Pulse 100 Oximetry [ Assessment] 11/05/16 11/05/16 11/05/16 01:00 01:30 01:45 Temperature Pulse Rate 121 H 119 H 123 H Respiratory 22 22 21 Rate Respiratory Rate [ Generalized] Blood Pressure 162/93 153/91 153/91 O2 Sat by Pulse 100 100 100 Oximetry O2 Sat by Pulse Oximetry [ Assessment] 11/05/16 11/05/16 11/05/16 02:00 02:30 03:00 Temperature Pulse Rate 123 H 118 H 118 H Respiratory 21 21 20 Rate Respiratory Rate [ Generalized] Blood Pressure 161/95 172/89 159/91 O2 Sat by Pulse 100 100 100 Oximetry O2 Sat by Pulse Oximetry [ Assessment] 11/05/16 11/05/16 11/05/16 03:05 03:30 04:00 Temperature 100 F H Pulse Rate 119 H 119 H Respiratory 23 17 Rate Respiratory Rate [ Generalized] Blood Pressure 164/90 161/88 O2 Sat by Pulse 100 100 Oximetry O2 Sat by Pulse Oximetry [ Assessment] 11/05/16 11/05/16 11/05/16 04:30 05:00 05:30 Temperature Pulse Rate 118 H 120 H 119 H Respiratory 26 H 20 16 Rate Respiratory Rate [ Generalized] Blood Pressure 169/92 167/95 163/90 O2 Sat by Pulse 100 100 100 Oximetry O2 Sat by Pulse Oximetry [ Assessment] 11/05/16 11/05/16 11/05/16 05:35 05:56 06:00 Temperature Pulse Rate 118 H 118 H Respiratory 21 17 Rate Respiratory Rate [ Generalized] Blood Pressure 163/90 177/94 O2 Sat by Pulse 100 100 Oximetry O2 Sat by Pulse Oximetry [ Assessment] 11/05/16 11/05/16 11/05/16 06:30 06:57 07:00 Temperature Pulse Rate 107 H 102 H 103 H Respiratory 24 21 Rate Respiratory Rate [ Generalized] Blood Pressure 179/86 172/85 159/78 O2 Sat by Pulse 100 100 Oximetry O2 Sat by Pulse Oximetry [ Assessment] 11/05/16 11/05/16 11/05/16 07:30 08:00 09:40 Temperature 100.3 F H Pulse Rate 111 H 118 H Respiratory 21 Rate Respiratory Rate [ Generalized] Blood Pressure 154/88 167/89 O2 Sat by Pulse 100 Oximetry O2 Sat by Pulse Oximetry [ Assessment] 11/05/16 09:41 Temperature Pulse Rate 115 H Respiratory Rate Respiratory Rate [ Generalized] Blood Pressure 167/89 O2 Sat by Pulse Oximetry O2 Sat by Pulse Oximetry [ Assessment] - Lab 11/01/16 04:55 11/05/16 03:10 Most recent lab results Calcium 7.8 mg/dL (8.4-10.2) L 11/05/16 03:10 Phosphorus 2.70 mg/dL (2.5-4.5) 11/05/16 03:10 Magnesium 1.80 mg/dL (1.7-2.3) 11/05/16 03:10 Urine Creatinine TNR 10/29/16 07:45 Urine Sodium 36 mEq/L 09/16/16 19:19 Urine Total Protein 16 mg/dL (5-11.8) H 09/16/16 19:19
--- NOTE | 2016-11-05 11:55 | Progress Note ---
Assessment and Plan Assessment and plan: 46-year-old woman with a history of hypertension, diabetes, asthma, hyperlipidemia, chronic kidney disease and anxiety , who was brought in by family because, she couldn't get her words out, her face was also twisted, she was admitted for acute CVA and accelerated hypertension, she had a hx of poor adherence with her medications, and uncontrolled htn. Patient's blood pressure systolically on admission was noted be greater than 260. TPA was started but this was discontinued after 5 minutes because her blood pressure became uncontrolled. The TPA was not initiated again because the patient was outside the TPA window. Fever Reconsult infectious disease, has recently completed antibiotics Spoke with Dr. Eli of infectious disease. She recommended obtaining a stat chest x-ray, UA, urine culture, blood cultures, CRP, pro calcitonin and holding antibiotics at this time. If patient continues to spike fevers by tomorrow we' ll start on IV Levaquin, patient does have a PICC line and a bath, this may be possible etiology of infection -Severe Sepsis with septic shock, recurrent. Patient with multiple episodes of sepsis. Initial episode due to presumed aspiration pneumonia and septic episode on 09/23 from candidemia then a third episode from peritonitis from gastric perforation from dislodged PEG , there was an abscess in the abdomen present at that time that was draining pus. +/-UTI. The latest episode was related to surgical site infection. Fevers have now resolved. Continue antibiotics per ID. Surgical wound infection/gram-negative sepsis/candidemia/peritonitis PEG has been removed Has already completed 14 days of abx and antifungals, ID input appreciated She will need to be on tube feeds through NG tube for a month, and then either a gastrostomy or jejunostomy tube replaced after her GI wounds have healed and infection is cleared JUANITA Likely due to vasomotor nephropathy and ATN given sepsis Nephrology input appreciated, continue hemodialysis Acute CVA with infarct. sp TPA Continue neuro checks. Neurology input appreciated, CT shows continued evolution of left MCA infarct with slight mass effect and edema, and there is no hemorrhage - PRINCE showed hyperdynamic with ef of 75%, neither clot nor septal defect seen - MRA Brain shows near complete occlusion of M2 and M3 of the left MCA - Repeat CT scan done on 09/11, shows stable findings - carotid doppler negative - Echo shows preserved systolic function but does show some left ventricular diastolic dysfunction - continue asa and statin for secondary ppx Persistent vegetative state This patient's needs placement at either hospice or SNF -She was denied for LTACH Acute hypoxic respiratory failure requiring MV >96hrs Status post tracheostomy, continue mechanical ventilation Nosocomial acquired aspiration pneumonia/sepsis/UTI Completed a course of antibiotics Asthma/COPD exacerbation Patient is on antibiotics, steroids and nebs, continue MV, intubated Acute Toxic Metabolic encephalopathy. Likely multifactorial, mostly secondary to evolution of CVA for restlessness, we checked troponin, EKG, CXR which were all negative Hypertensive Emergency Continue current medications Paroxysmal atrial fibrillation with rapid ventricular rate, failed cardioversion Continue current medications, Not a candidate for anticoagulation secondary to anemia thrombocytopenia and massive CVA Hypokalemia/Hypomagnesemia/hypophosphatemia. Replete electrolytes as needed. Diabetes type 2. Continue sliding-scale regular insulin and Accu-Cheks. Hyperlipidemia. Continue statin Nutrition continue tube feeds Anemia requiring multiple transfusions/acute blood loss Has received 11 units of PRBC, now stable, continue to monitor Case discussed with the patient's family and pulmonology her POA is her Brother, Jam [phone] Dispo. Very poor prognosis. Plan for SNIF placement, she was ready denied by LTAC The high probability of a clinically significant, sudden or life threatening deterioration of the [cardiovascular and neurological] system(s) required my full and direct attention, intervention and personal management. The aggregate critical care time was [33] minutes. This time is in addition to time spent performing reported procedures but includes the following: [] Data Review and interpretation [] Patient assessment and monitoring of vital signs [] Documentation [] Medication orders and management History Interval history: She opens her eyes, but does not obey commands. Has tracheostomy in place The spiking fevers now for 2 days Hospitalist Physical - Physical exam Narrative exam: General: Opens eyes, no distress HEENT: MMM, EOMI cardiac: S1-S2 heard lungs: ventilated breath sounds abdomen: soft, nontender, nondistended bowel sounds positive extremities: no edema clubbing or cyanosis Skin: no rash or lesion Neuro: Status post tracheostomy, opens eyes, does not obey commands, right- sided weakness - Constitutional Vitals: Temp Pulse Resp BP Pulse Ox 100.3 F H 115 H 21 167/89 100 11/05/16 08:00 11/05/16 09:41 11/05/16 07:30 11/05/16 09:41 11/05/16 07:30 General appearance: Present: no acute distress, obese, other (on vent, non- responsive) Results - Labs CBC & Chem 7: 11/01/16 04:55 11/05/16 03:10 Labs: Laboratory Last Values WBC 11.2 K/mm3 (4.5-11.0) H 11/01/16 04:55 RBC 2.68 M/mm3 (3.65-5.03) L 11/01/16 04:55 Hgb 7.5 gm/dl (10.1-14.3) L 11/01/16 04:55 Hct 23.7 % (30.3-42.9) L 11/01/16 04:55 MCV 89 fl (79-97) 11/01/16 04:55 MCH 28 pg (28-32) 11/01/16 04:55 MCHC 32 % (30-34) 11/01/16 04:55 RDW 16.1 % (13.2-15.2) H 11/01/16 04:55 Plt Count 229 K/mm3 (140-440) 11/01/16 04:55 Lymph % (Auto) 16.7 % (13.4-35.0) 11/01/16 04:55 [place] % (Auto) 9.8 % (0.0-7.3) H 11/01/16 04:55 Eos % (Auto) 1.7 % (0.0-4.3) 11/01/16 04:55 Baso % (Auto) 1.0 % (0.0-1.8) 11/01/16 04:55 Lymph # 1.9 K/mm3 (1.2-5.4) 11/01/16 04:55 Sutton # 1.1 K/mm3 (0.0-0.8) H 11/01/16 04:55 Eos # 0.2 K/mm3 (0.0-0.4) 11/01/16 04:55 Baso # 0.1 K/mm3 (0.0-0.1) 11/01/16 04:55 Add Manual Diff Complete 10/27/16 06:30 Total Counted 100 10/27/16 06:30 Seg Neutrophils % 70.8 % (40.0-70.0) H 11/01/16 04:55 Seg Neuts % (Manual) 78.0 % (40.0-70.0) H 10/27/16 06:30 Band Neutrophils % 0 % 10/27/16 06:30 Lymphocytes % (Manual) 14.0 % (13.4-35.0) 10/27/16 06:30 Reactive Lymphs % (Man) 0 % 10/27/16 06:30 Monocytes % (Manual) 7.0 % (0.0-7.3) 10/27/16 06:30 Eosinophils % (Manual) 0 % (0.0-4.3) 10/27/16 06:30 Basophils % (Manual) 1.0 % (0.0-1.8) 10/27/16 06:30 Metamyelocytes % 0 % 10/27/16 06:30 Myelocytes % 0 % 10/27/16 06:30 Promyelocytes % 0 % 10/27/16 06:30 Blast Cells % 0 % 10/27/16 06:30 Nucleated RBC % 2.0 % (0.0-0.9) H 10/27/16 06:30 Seg Neutrophils # 7.9 K/mm3 (1.8-7.7) H 11/01/16 04:55 Seg Neutrophils # Man 10.8 K/mm3 (1.8-7.7) H 10/27/16 06:30 Band Neutrophils # 0.0 K/mm3 10/27/16 06:30 Lymphocytes # (Manual) 1.9 K/mm3 (1.2-5.4) 10/27/16 06:30 Abs React Lymphs (Man) 0.0 K/mm3 10/27/16 06:30 Monocytes # (Manual) 1.0 K/mm3 (0.0-0.8) H 10/27/16 06:30 Eosinophils # (Manual) 0.0 K/mm3 (0.0-0.4) 10/27/16 06:30 Basophils # (Manual) 0.1 K/mm3 (0.0-0.1) 10/27/16 06:30 Metamyelocytes # 0.0 K/mm3 10/27/16 06:30 Myelocytes # 0.0 K/mm3 10/27/16 06:30 Promyelocytes # 0.0 K/mm3 10/27/16 06:30 Blast Cells # 0.0 K/mm3 10/27/16 06:30 Pathologist Review 09/13/16 04:00 WBC Morphology Not Reportable 10/27/16 06:30 Hypersegmented Neuts Not Reportable 10/27/16 06:30 Hyposegmented Neuts Not Reportable 10/27/16 06:30 Hypogranular Neuts Not Reportable 10/27/16 06:30 Smudge Cells Not Reportable 10/27/16 06:30 Toxic Granulation Not Reportable 10/27/16 06:30 Toxic Vacuolation Not Reportable 10/27/16 06:30 Dohle Bodies Not Reportable 10/27/16 06:30 Pelger-Huet Anomaly Not Reportable 10/27/16 06:30 Jasmina Rods Not Reportable 10/27/16 06:30 Platelet Estimate Cons 10/27/16 06:30 Clumped Platelets Not Reportable 10/27/16 06:30 Plt Clumps, EDTA Not Reportable 10/27/16 06:30 Large Platelets Few 10/27/16 06:30 Giant Platelets Not Reportable 10/27/16 06:30 Platelet Satelliting Not Reportable 10/27/16 06:30 Plt Morphology Comment Not Reportable 10/27/16 06:30 RBC Morphology Not Reportable 10/27/16 06:30 Dimorphic RBCs Not Reportable 10/27/16 06:30 Polychromasia Not Reportable 10/27/16 06:30 Hypochromasia Not Reportable 10/27/16 06:30 Poikilocytosis Not Reportable 10/27/16 06:30 Anisocytosis 1+ 10/27/16 06:30 Microcytosis Not Reportable 10/27/16 06:30 Macrocytosis Not Reportable 10/27/16 06:30 Spherocytes Not Reportable 10/27/16 06:30 Pappenheimer Bodies Not Reportable 10/27/16 06:30 Sickle Cells Not Reportable 10/27/16 06:30 Target Cells Not Reportable 10/27/16 06:30 Tear Drop Cells Not Reportable 10/27/16 06:30 Ovalocytes Not Reportable 10/27/16 06:30 Stomatocytes Few 10/06/16 03:50 Helmet Cells Not Reportable 10/27/16 06:30 Monet-[place] Tak Bodies Not Reportable 10/27/16 06:30 [place] Rings Not Reportable 10/27/16 06:30 Chuck Cells Not Reportable 10/27/16 06:30 Bite Cells Not Reportable 10/27/16 06:30 Crenated Cell Not Reportable 10/27/16 06:30 Elliptocytes Not Reportable 10/27/16 06:30 Acanthocytes (Spur) Not Reportable 10/27/16 06:30 Rouleaux Not Reportable 10/27/16 06:30 Hemoglobin C Crystals Not Reportable 10/27/16 06:30 Schistocytes Not Reportable 10/27/16 06:30 Malaria parasites Not Reportable 10/27/16 06:30 ESR > 140.0 mm/Hr (0-20) 09/08/16 11:48 Jun Bodies Not Reportable 10/27/16 06:30 Hem Pathologist Commnt No 10/27/16 06:30 PT 19.0 Sec. (12.2-14.9) H 10/09/16 03:45 INR 1.51 (0.87-1.13) H 10/09/16 03:45 APTT 33.0 Sec. (24.2-36.6) 10/09/16 03:45 Thrombin Time 16.8 Sec. (15.1-19.6) 09/03/16 00:10 Fibrinogen 750 mg/dl (211-480) H 09/08/16 11:48 Lupus Anticoagulant see below 09/12/16 09:59 LA PTT Baseline See scanned report 09/12/16 09:59 dRVVT Confirm Interp Positive (Negative) H 09/12/16 09:59 dRVVT Screen 50:50 See scanned report 09/12/16 09:59 dRVVT Mix Interpret See scanned report 09/12/16 09:59 Protein C Antigen 122 % (70-140) 09/08/16 15:35 Free Protein S 97 % normal (50-147) 09/08/16 15:35 Total Protein S 109 % (70-140) 09/08/16 15:35 Antithrombin III Ag 100 % (80-120) 09/08/16 15:35 Heparin Anti-Xa, Unfract Negative (Negative) 09/29/16 13:35 Factor V Activity 182 % (65-150) H 09/08/16 15:35 POC ABG pH 7.561 (7.35-7.45) H 10/16/16 20:48 POC ABG pCO2 24.4 (35-45) L 10/16/16 20:48 POC ABG pO2 77 (80-105) L 10/16/16 20:48 POC ABG HCO3 21.9 10/16/16 20:48 POC ABG Total CO2 23 10/16/16 20:48 POC ABG O2 Sat 97 10/16/16 20:48 POC ABG Base Excess 0 10/16/16 20:48 FiO2 25 % 10/16/16 20:48 Sodium 136 mmol/L (137-145) L 11/05/16 03:10 Potassium 4.5 mmol/L (3.6-5.0) 11/05/16 03:10 Chloride 97.2 mmol/L (98-107) L 11/05/16 03:10 Carbon Dioxide 25 mmol/L (22-30) 11/05/16 03:10 Anion Gap 18 mmol/L 11/05/16 03:10 BUN 32 mg/dL (7-17) H 11/05/16 03:10 Creatinine 1.3 mg/dL (0.7-1.2) H 11/05/16 03:10 Estimated GFR 54 ml/min 11/05/16 03:10 BUN/Creatinine Ratio 24.61 % 11/05/16 03:10 Glucose 123 mg/dL (65-100) H 11/05/16 03:10 POC Glucose 108 (70-105) H 11/05/16 05:10 Osmolality 351 Mosm/kg 09/16/16 11:47 Lactic Acid 4.50 mmol/L (0.7-2.0) H* 09/28/16 07:25 Calcium 7.8 mg/dL (8.4-10.2) L 11/05/16 03:10 Phosphorus 2.70 mg/dL (2.5-4.5) 11/05/16 03:10 Magnesium 1.80 mg/dL (1.7-2.3) 11/05/16 03:10 Total Bilirubin 0.30 mg/dL (0.1-1.2) 10/17/16 04:24 Direct Bilirubin 0.3 mg/dL (0-0.2) H 10/10/16 05:00 Indirect Bilirubin 0.1 mg/dL 10/10/16 05:00 AST 39 units/L (5-40) 10/17/16 04:24 ALT 13 units/L (7-56) 10/17/16 04:24 Alkaline Phosphatase 138 units/L (35-129) H 10/17/16 04:24 Ammonia 27.0 umol/L (25-60) 09/07/16 08:37 Total Creatine Kinase 121 units/L (30-135) 09/29/16 20:12 CK-MB (CK-2) < 1.0 ng/mL (0.0-4.0) 09/29/16 20:12 CK-MB (CK-2) Rel Index 0.8 (0-4) 09/29/16 20:12 Troponin T 0.204 ng/mL (0.00-0.029) H* 09/29/16 20:12 C-Reactive Protein 15.80 mg/dL (0.00-1.30) H 10/11/16 04:15 Total Protein 6.2 g/dL (6.3-8.2) L 10/17/16 04:24 Albumin 1.5 g/dL (3.9-5) L 10/17/16 04:24 Albumin/Globulin Ratio 0.3 % 10/17/16 04:24 Triglycerides 137 mg/dL (2-149) 09/29/16 20:12 Cholesterol 31 mg/dL (50-199) L 09/29/16 20:12 LDL Cholesterol Direct 4 mg/dL (50-130) L 09/29/16 20:12 HDL Cholesterol 3 mg/dL (40-59) L 09/29/16 20:12 Cholesterol/HDL Ratio 10.33 % 09/29/16 20:12 Angiotensin Convert Enz See scanned report 09/08/16 11:48 Renin 0.99 ng/mL/h (0.25-5.82) 10/07/16 10:56 Aldosterone <1 ng/dL () 10/07/16 10:56 Aldosterone/Renin Dir see below 10/07/16 10:56 Serotonin Release Assay See scanned report 09/29/16 13:35 TSH 1.010 mlU/mL (0.270-4.200) 09/07/16 08:37 HCG, Qual Negative (Negative) 09/03/16 00:10 Urine Color [place] (Yellow) 10/07/16 18:30 Urine Turbidity Turbid (Clear) 10/07/16 18:30 Urine pH 7.0 (5.0-7.0) 10/07/16 18:30 Ur Specific [place] 1.012 (1.003-1.030) 10/07/16 18:30 Urine Protein 100 mg/dl mg/dL (Negative) 10/07/16 18:30 Urine Glucose (UA) Neg mg/dL (Negative) 10/07/16 18:30 Urine Ketones Neg mg/dL (Negative) 10/07/16 18:30 Urine Blood Lg (Negative) 10/07/16 18:30 Urine Nitrite Neg (Negative) 10/07/16 18:30 Urine Bilirubin Neg (Negative) 10/07/16 18:30 Urine Urobilinogen < 2.0 mg/dL (<2.0) 10/07/16 18:30 Ur Leukocyte Esterase Lg (Negative) 10/07/16 18:30 Urine WBC (Auto) > 182.0 /HPF (0.0-6.0) H 10/07/16 18:30 Urine RBC (Auto) > 182.0 /HPF (0.0-6.0) 10/07/16 18:30 U Epithel Cells (Auto) 1.0 /HPF (0-13.0) 10/07/16 18:30 Urine Bacteria (Auto) 3+ /HPF (Negative) 10/07/16 18:30 Urine WBC Clumps 2+ /HPF 09/07/16 02:47 Hyaline Casts 4 /LPF 09/07/16 02:47 Urine Mucus Few /HPF 10/07/16 18:30 Urine Yeast (Budding) 3+ /HPF 10/07/16 18:30 Urine Eosinophils None seen (None Seen) 09/07/16 16:00 Urine Total Volume TNR 10/29/16 07:45 Urine Creatinine TNR 10/29/16 07:45 Height (in) TNR 10/29/16 07:45 Weight (lb) TNR 10/29/16 07:45 Creatinine Clearance TNR 10/29/16 07:45 Urine Sodium 36 mEq/L 09/16/16 19:19 Urine Total Protein 16 mg/dL (5-11.8) H 09/16/16 19:19 Vancomycin Trough 2.3 ug/mL (5.0-20.0) L 09/21/16 13:00 Random Vancomycin 17.0 ug/mL (0-40.0) 10/20/16 06:00 Urine Opiates Screen Presumptive negative 09/03/16 15:11 Urine Methadone Screen Presumptive positive 09/03/16 15:11 Ur Barbiturates Screen Presumptive positive 09/03/16 15:11 Ur Phencyclidine Scrn Presumptive negative 09/03/16 15:11 Ur Amphetamines Screen Presumptive negative 09/03/16 15:11 U Benzodiazepines Scrn Presumptive negative 09/03/16 15:11 Urine Cocaine Screen Presumptive negative 09/03/16 15:11 U Marijuana (THC) Screen Presumptive positive 09/03/16 15:11 Drugs of Abuse Note Disclamer 09/03/16 15:11 Rheumatoid Factor 24 IU/ml (0-13) H 09/08/16 11:48 SAHIL Screen Negative (Negative) 09/07/16 09:20 Proteinase 3 (PR3) Ab <1.0 AI (<1.0) 09/07/16 09:20 Myeloperoxidase Ab <1.0 AI (<1.0) 09/07/16 09:20 Sjogren's Antibody <1.0 AI (<1.0) 09/08/16 15:35 Scl-70 Scleroderma Ab <1.0 AI (<1.0) 09/08/16 15:35 Centromere B Antibody <1.0 AI (<1.0) 09/08/16 12:02 Heparin-induced Plt Ab Negative (Negative) 09/29/16 13:35 UF Heparin High Dose 11 % Release 09/29/16 13:35 SUDHIR UFH Low Dose 0.1 6 % Release 09/29/16 13:35 SUDHIR UFH Low Dose 0.5 8 % Release 09/29/16 13:35 Cardiolipid IgG Ab <14 GPL (<=14) 09/12/16 09:59 Cardiolipid IgA Ab <11 APL (<=11) 09/12/16 09:59 Cardiolipid IgM Ab <12 MPL (<=12) 09/12/16 09:59 Complement C3 148 mg/dL (90-180) 09/07/16 09:20 Complement C4 58 mg/dL (16-47) H 09/07/16 09:20 RPR Nonreactive (Nonreactive) 09/08/16 11:48 Hepatitis A IgM Ab Non-reactive (NonReactive) 09/24/16 14:40 Hep Bs Antigen Non-reactive (Negative) 09/24/16 14:40 Hep B Core IgM Ab Non-reactive (NonReactive) 09/24/16 14:40 Hepatitis C Antibody Non-reactive (NonReactive) 09/24/16 14:40 HIV 1&2 Antibody Rapid Non react (Non React) 09/08/16 11:48 HIV P24 Antigen Non react (Non React) 09/08/16 11:48 Miscellaneous Test Flexitest 1 H 10/20/16 16:00 Blood Type A POSITIVE 10/24/16 Unknown Antibody Screen Negative 10/24/16 Unknown DELORIS Antibody Screen Negative 09/25/16 10:30 Crossmatch See Detail 10/24/16 Unknown
--- NOTE | 2016-11-05 12:17 | XRay Report ---
AP CHEST :11/05/16 CLINICAL: Fever. COMPARISON:10/28/16 FINDINGS: Stable cardiomegaly. Central vascular congestion. Bibasal opacities with silhouetting of the diaphragm are unchanged. A left Vas-Cath tip is in the right atrium and unchanged. A right IJ catheter tip is in the right atrium. Tracheostomy tube is satisfactory. Feeding tube tip is in the stomach. IMPRESSION: No change. CHF with probable bilateral pleural effusions.
--- NOTE | 2016-11-05 12:33 | Progress Note ---
Assessment and Plan Patient is 46-year-old woman with a history of hypertension, diabetes mellitus, asthma, hyperlipidemia, chronic kidney disease and anxiety, who was brought in by family because she couldn't get her words out, her face was also twisted, she was admitted for acute CVA and accelerated hypertension, she had a hx of poor adherence with her medications, and uncontrolled htn. Patient's SBP on admission was noted be greater than 260. TPA was started but this it was discontinued after 5 minutes because her blood pressure became uncontrolled. The TPA was not initiated again because the patient was outside the TPA window. - Patient Problems (1) Acute respiratory failure with hypoxia Current Visit: Yes Status: Acute Plan to address problem: Continue with mechanical ventilatory support and daily SBTs as tolerated Currently tolerating ATP trials Lung protective strategies -VAP bundle, HOB >40 - SCDs for VTE prophylaxis - Stress ulcer prophylaxis -Bronchodilators- h/o asthma - TPN, accucheck with glycemic control - ABGs and CXR PRN (2) Acute blood loss anemia Current Visit: Yes Status: Resolved Plan to address problem: Transfuse for Hgh 7g/dl Monitor counts (3) Acute CVA (cerebrovascular accident) Current Visit: Yes Status: Acute Plan to address problem: CTScan -subacute MCA territory infarct Secondary stroke prophylaxis Neuroprotective measures Aspiration precautions (4) Chronic renal insufficiency Current Visit: Yes Status: Acute Qualifiers: Chronic kidney disease stage: C Plan to address problem: UF/HD per renal service Renal following (5) Uncontrolled hypertension Current Visit: Yes Status: Acute Plan to address problem: Monitor closely and adjust anti-hypertensive medications (6) Leukocytosis (leucocytosis) Current Visit: Yes Status: Acute Qualifiers: Leukocytosis type: leukemoid reaction Qualified Code(s): D72.823 - Leukemoid reaction Plan to address problem: Has new fevers. Carson cultures done Empiric levofloxacin per ID while waiting cultures results (7) Dislodged gastrostomy tube Current Visit: Yes Status: Acute Plan to address problem: With bowel perforation/peritonitis( resolved) Remains NPO except medications and on TPN for nutritional support. (8) Fungemia Current Visit: Yes Status: Resolved Plan to address problem: s/p anti-fungal therapy per ID service. Subjective Date of service: 11/05/16 Principal diagnosis: Acute resp failure on MVS; S/P Acute CVA; Acute Encephalopathy; JUANITA Interval history: Seen and examined. Vitals, labs, medications, chart reviewed. High grade fevers on going, intermittent Carson cultures in progress. Discussed with RT and RN during interdisciplinary rounds. Objective Vital Signs - 12hr 11/05/16 11/05/16 11/05/16 01:00 01:30 01:45 Temperature Pulse Rate 121 H 119 H 123 H Respiratory 22 22 21 Rate Blood Pressure 162/93 153/91 153/91 O2 Sat by Pulse 100 100 100 Oximetry 11/05/16 11/05/16 11/05/16 02:00 02:30 03:00 Temperature Pulse Rate 123 H 118 H 118 H Respiratory 21 21 20 Rate Blood Pressure 161/95 172/89 159/91 O2 Sat by Pulse 100 100 100 Oximetry 11/05/16 11/05/16 11/05/16 03:05 03:30 04:00 Temperature 100 F H Pulse Rate 119 H 119 H Respiratory 23 17 Rate Blood Pressure 164/90 161/88 O2 Sat by Pulse 100 100 Oximetry 11/05/16 11/05/16 11/05/16 04:30 05:00 05:30 Temperature Pulse Rate 118 H 120 H 119 H Respiratory 26 H 20 16 Rate Blood Pressure 169/92 167/95 163/90 O2 Sat by Pulse 100 100 100 Oximetry 11/05/16 11/05/16 11/05/16 05:35 05:56 06:00 Temperature Pulse Rate 118 H 118 H Respiratory 21 17 Rate Blood Pressure 163/90 177/94 O2 Sat by Pulse 100 100 Oximetry 11/05/16 11/05/16 11/05/16 06:30 06:57 07:00 Temperature Pulse Rate 107 H 102 H 103 H Respiratory 24 21 Rate Blood Pressure 179/86 172/85 159/78 O2 Sat by Pulse 100 100 Oximetry 11/05/16 11/05/16 11/05/16 07:30 08:00 09:40 Temperature 100.3 F H Pulse Rate 111 H 118 H Respiratory 21 Rate Blood Pressure 154/88 167/89 O2 Sat by Pulse 100 Oximetry 11/05/16 09:41 Temperature Pulse Rate 115 H Respiratory Rate Blood Pressure 167/89 O2 Sat by Pulse Oximetry Constitutional: no acute distress, other (eyes open; not tracking movements) Eyes: non-icteric, other (tracheostomy tube in midline of neck) ENT: oropharynx moist Neck: supple, no lymphadenopathy Effort: mildly labored Ascultation: Right: diminished breath sounds (base), Bilateral: clear, rales, rhonchi (scant) Cardiovascular: regular rate and rhythm Gastrointestinal: hypoactive bowel sounds, soft, non-tender, non-distended, other (RLQ wound dressed) Integumentary: other (erythema to skin of back with some healing areas; no obvious TEN's features) Extremities: no cyanosis, no edema, pulses normal, no ischemia or petechiae Neurologic: pupils equal and round, other (sedated) Psychiatric: other (unable to assess) CBC and BMP: 12/28/16 04:00 12/29/16 05:15 ABG, PT/INR, D-dimer: ABG POC ABG pH 7.561 (7.35-7.45) H 10/16/16 20:48 POC ABG pCO2 24.4 (35-45) L 10/16/16 20:48 POC ABG pO2 77 (80-105) L 10/16/16 20:48 POC ABG HCO3 21.9 10/16/16 20:48 POC ABG Total CO2 23 10/16/16 20:48 POC ABG O2 Sat 97 10/16/16 20:48 PT/INR, D-dimer PT 19.0 Sec. (12.2-14.9) H 10/09/16 03:45 INR 1.51 (0.87-1.13) H 10/09/16 03:45 Abnormal lab findings: Abnormal Labs 09/03/16 09/03/16 09/03/16 12:12 15:07 16:20 WBC RBC Hgb Hct MCV MCH MCHC RDW Plt Count Lymph % (Auto) [place] % (Auto) Lymph # [place] # Baso # Seg Neutrophils % Seg Neuts % (Manual) Lymphocytes % (Manual) Monocytes % (Manual) Eosinophils % (Manual) Basophils % (Manual) Nucleated RBC % Seg Neutrophils # Seg Neutrophils # Man Lymphocytes # (Manual) Monocytes # (Manual) Eosinophils # (Manual) PT INR Fibrinogen dRVVT Confirm Interp Factor V Activity POC ABG pH 7.452 H POC ABG pCO2 POC ABG pO2 Sodium Potassium Chloride Carbon Dioxide BUN Creatinine Glucose POC Glucose 178 H Lactic Acid Calcium Phosphorus 2.20 L Magnesium 1.60 L Direct Bilirubin ALT Alkaline Phosphatase Troponin T C-Reactive Protein Total Protein Albumin Triglycerides Cholesterol LDL Cholesterol Direct HDL Cholesterol Urine WBC (Auto) Urine Creatinine Urine Total Protein Vancomycin Trough Rheumatoid Factor Complement C4 Miscellaneous Test Crossmatch 09/03/16 09/03/16 09/03/16 17:57 17:58 23:50 WBC RBC Hgb Hct MCV MCH MCHC RDW Plt Count Lymph % (Auto) [place] % (Auto) Lymph # [place] # Baso # Seg Neutrophils % Seg Neuts % (Manual) Lymphocytes % (Manual) Monocytes % (Manual) Eosinophils % (Manual) Basophils % (Manual) Nucleated RBC % Seg Neutrophils # Seg Neutrophils # Man Lymphocytes # (Manual) Monocytes # (Manual) Eosinophils # (Manual) PT INR Fibrinogen dRVVT Confirm Interp Factor V Activity POC ABG pH POC ABG pCO2 POC ABG pO2 Sodium Potassium Chloride Carbon Dioxide BUN Creatinine Glucose POC Glucose 162 H 145 H Lactic Acid Calcium Phosphorus 2.30 L Magnesium Direct Bilirubin ALT Alkaline Phosphatase Troponin T C-Reactive Protein Total Protein Albumin Triglycerides Cholesterol LDL Cholesterol Direct HDL Cholesterol Urine WBC (Auto) Urine Creatinine Urine Total Protein Vancomycin Trough Rheumatoid Factor Complement C4 Miscellaneous Test Crossmatch 09/04/16 09/04/16 09/04/16 03:31 03:31 05:42 WBC RBC Hgb 9.7 L D Hct MCV 72 L MCH 23 L MCHC RDW 17.5 H Plt Count Lymph % (Auto) 11.1 L [place] % (Auto) Lymph # [place] # Baso # Seg Neutrophils % 84.3 H Seg Neuts % (Manual) Lymphocytes % (Manual) Monocytes % (Manual) Eosinophils % (Manual) Basophils % (Manual) Nucleated RBC % Seg Neutrophils # 8.9 H Seg Neutrophils # Man Lymphocytes # (Manual) Monocytes # (Manual) Eosinophils # (Manual) PT INR Fibrinogen dRVVT Confirm Interp Factor V Activity POC ABG pH POC ABG pCO2 POC ABG pO2 Sodium 135 L Potassium 2.9 L* Chloride 97.2 L Carbon Dioxide 19 L BUN Creatinine 1.7 H Glucose 170 H POC Glucose 152 H Lactic Acid Calcium Phosphorus Magnesium Direct Bilirubin ALT Alkaline Phosphatase Troponin T C-Reactive Protein Total Protein Albumin Triglycerides 160 H Cholesterol LDL Cholesterol Direct HDL Cholesterol 31 L Urine WBC (Auto) Urine Creatinine Urine Total Protein Vancomycin Trough Rheumatoid Factor Complement C4 Miscellaneous Test Crossmatch 09/04/16 09/04/16 09/04/16 11:34 17:46 23:29 WBC RBC Hgb Hct MCV MCH MCHC RDW Plt Count Lymph % (Auto) [place] % (Auto) Lymph # [place] # Baso # Seg Neutrophils % Seg Neuts % (Manual) Lymphocytes % (Manual) Monocytes % (Manual) Eosinophils % (Manual) Basophils % (Manual) Nucleated RBC % Seg Neutrophils # Seg Neutrophils # Man Lymphocytes # (Manual) Monocytes # (Manual) Eosinophils # (Manual) PT INR Fibrinogen dRVVT Confirm Interp Factor V Activity POC ABG pH POC ABG pCO2 POC ABG pO2 Sodium Potassium Chloride Carbon Dioxide BUN Creatinine Glucose POC Glucose 165 H 210 H 139 H Lactic Acid Calcium Phosphorus Magnesium Direct Bilirubin ALT Alkaline Phosphatase Troponin T C-Reactive Protein Total Protein Albumin Triglycerides Cholesterol LDL Cholesterol Direct HDL Cholesterol Urine WBC (Auto) Urine Creatinine Urine Total Protein Vancomycin Trough Rheumatoid Factor Complement C4 Miscellaneous Test Crossmatch 09/05/16 09/05/16 09/05/16 04:05 04:05 05:38 WBC RBC Hgb Hct MCV 76 L D MCH 23 L MCHC RDW 17.8 H Plt Count Lymph % (Auto) [place] % (Auto) Lymph # [place] # Baso # Seg Neutrophils % Seg Neuts % (Manual) Lymphocytes % (Manual) Monocytes % (Manual) Eosinophils % (Manual) Basophils % (Manual) Nucleated RBC % Seg Neutrophils # Seg Neutrophils # Man Lymphocytes # (Manual) Monocytes # (Manual) Eosinophils # (Manual) PT INR Fibrinogen dRVVT Confirm Interp Factor V Activity POC ABG pH POC ABG pCO2 POC ABG pO2 Sodium 134 L Potassium Chloride Carbon Dioxide 18 L BUN Creatinine 1.8 H Glucose 192 H POC Glucose 175 H Lactic Acid Calcium Phosphorus Magnesium Direct Bilirubin ALT Alkaline Phosphatase Troponin T C-Reactive Protein Total Protein Albumin Triglycerides Cholesterol LDL Cholesterol Direct HDL Cholesterol Urine WBC (Auto) Urine Creatinine Urine Total Protein Vancomycin Trough Rheumatoid Factor Complement C4 Miscellaneous Test Crossmatch 09/05/16 09/05/16 09/05/16 11:38 17:48 23:22 WBC RBC Hgb Hct MCV MCH MCHC RDW Plt Count Lymph % (Auto) [place] % (Auto) Lymph # [place] # Baso # Seg Neutrophils % Seg Neuts % (Manual) Lymphocytes % (Manual) Monocytes % (Manual) Eosinophils % (Manual) Basophils % (Manual) Nucleated RBC % Seg Neutrophils # Seg Neutrophils # Man Lymphocytes # (Manual) Monocytes # (Manual) Eosinophils # (Manual) PT INR Fibrinogen dRVVT Confirm Interp Factor V Activity POC ABG pH POC ABG pCO2 POC ABG pO2 Sodium Potassium Chloride Carbon Dioxide BUN Creatinine Glucose POC Glucose 164 H 186 H 195 H Lactic Acid Calcium Phosphorus Magnesium Direct Bilirubin ALT Alkaline Phosphatase Troponin T C-Reactive Protein Total Protein Albumin Triglycerides Cholesterol LDL Cholesterol Direct HDL Cholesterol Urine WBC (Auto) Urine Creatinine Urine Total Protein Vancomycin Trough Rheumatoid Factor Complement C4 Miscellaneous Test Crossmatch 09/06/16 09/06/16 09/06/16 04:12 05:59 07:32 WBC RBC Hgb Hct MCV MCH MCHC RDW Plt Count Lymph % (Auto) [place] % (Auto) Lymph # [place] # Baso # Seg Neutrophils % Seg Neuts % (Manual) Lymphocytes % (Manual) Monocytes % (Manual) Eosinophils % (Manual) Basophils % (Manual) Nucleated RBC % Seg Neutrophils # Seg Neutrophils # Man Lymphocytes # (Manual) Monocytes # (Manual) Eosinophils # (Manual) PT INR Fibrinogen dRVVT Confirm Interp Factor V Activity POC ABG pH 7.514 H POC ABG pCO2 29.1 L POC ABG pO2 72 L Sodium 133 L Potassium 3.4 L Chloride 94.9 L Carbon Dioxide 19 L BUN 30 H Creatinine 2.1 H Glucose 139 H POC Glucose 146 H Lactic Acid Calcium Phosphorus Magnesium Direct Bilirubin ALT Alkaline Phosphatase Troponin T C-Reactive Protein Total Protein Albumin Triglycerides Cholesterol LDL Cholesterol Direct HDL Cholesterol Urine WBC (Auto) Urine Creatinine Urine Total Protein Vancomycin Trough Rheumatoid Factor Complement C4 Miscellaneous Test Crossmatch 09/06/16 09/06/16 09/06/16 11:57 17:58 19:02 WBC RBC Hgb Hct MCV MCH MCHC RDW Plt Count Lymph % (Auto) [place] % (Auto) Lymph # [place] # Baso # Seg Neutrophils % Seg Neuts % (Manual) Lymphocytes % (Manual) Monocytes % (Manual) Eosinophils % (Manual) Basophils % (Manual) Nucleated RBC % Seg Neutrophils # Seg Neutrophils # Man Lymphocytes # (Manual) Monocytes # (Manual) Eosinophils # (Manual) PT INR Fibrinogen dRVVT Confirm Interp Factor V Activity POC ABG pH 7.465 H POC ABG pCO2 32.0 L POC ABG pO2 Sodium Potassium Chloride Carbon Dioxide BUN Creatinine Glucose POC Glucose 165 H 160 H Lactic Acid Calcium Phosphorus Magnesium Direct Bilirubin ALT Alkaline Phosphatase Troponin T C-Reactive Protein Total Protein Albumin Triglycerides Cholesterol LDL Cholesterol Direct HDL Cholesterol Urine WBC (Auto) Urine Creatinine Urine Total Protein Vancomycin Trough Rheumatoid Factor Complement C4 Miscellaneous Test Crossmatch 09/06/16 09/07/16 09/07/16 23:45 02:47 02:47 WBC RBC Hgb Hct MCV MCH MCHC RDW Plt Count Lymph % (Auto) [place] % (Auto) Lymph # [place] # Baso # Seg Neutrophils % Seg Neuts % (Manual) Lymphocytes % (Manual) Monocytes % (Manual) Eosinophils % (Manual) Basophils % (Manual) Nucleated RBC % Seg Neutrophils # Seg Neutrophils # Man Lymphocytes # (Manual) Monocytes # (Manual) Eosinophils # (Manual) PT INR Fibrinogen dRVVT Confirm Interp Factor V Activity POC ABG pH POC ABG pCO2 POC ABG pO2 Sodium Potassium Chloride Carbon Dioxide BUN Creatinine Glucose POC Glucose 204 H Lactic Acid Calcium Phosphorus Magnesium Direct Bilirubin ALT Alkaline Phosphatase Troponin T C-Reactive Protein Total Protein Albumin Triglycerides Cholesterol LDL Cholesterol Direct HDL Cholesterol Urine WBC (Auto) 68.0 H Urine Creatinine 106.1 H Urine Total Protein Vancomycin Trough Rheumatoid Factor Complement C4 Miscellaneous Test Crossmatch 09/07/16 09/07/16 09/07/16 04:50 06:19 06:39 WBC RBC Hgb Hct MCV MCH MCHC RDW Plt Count Lymph % (Auto) [place] % (Auto) Lymph # [place] # Baso # Seg Neutrophils % Seg Neuts % (Manual) Lymphocytes % (Manual) Monocytes % (Manual) Eosinophils % (Manual) Basophils % (Manual) Nucleated RBC % Seg Neutrophils # Seg Neutrophils # Man Lymphocytes # (Manual) Monocytes # (Manual) Eosinophils # (Manual) PT INR Fibrinogen dRVVT Confirm Interp Factor V Activity POC ABG pH 7.457 H POC ABG pCO2 32.1 L POC ABG pO2 76 L Sodium 132 L Potassium Chloride 94.7 L Carbon Dioxide BUN 53 H Creatinine 2.9 H Glucose 151 H POC Glucose 149 H Lactic Acid Calcium Phosphorus Magnesium Direct Bilirubin ALT Alkaline Phosphatase Troponin T C-Reactive Protein Total Protein Albumin Triglycerides Cholesterol LDL Cholesterol Direct HDL Cholesterol Urine WBC (Auto) Urine Creatinine Urine Total Protein Vancomycin Trough Rheumatoid Factor Complement C4 Miscellaneous Test Crossmatch 09/07/16 09/07/16 09/07/16 09:20 11:43 11:43 WBC 19.4 H RBC Hgb 8.3 L Hct 26.4 L D MCV 72 L D MCH 22 L MCHC RDW 17.9 H Plt Count Lymph % (Auto) 8.5 L [place] % (Auto) Lymph # [place] # 1.0 H Baso # Seg Neutrophils % 85.8 H Seg Neuts % (Manual) Lymphocytes % (Manual) Monocytes % (Manual) Eosinophils % (Manual) Basophils % (Manual) Nucleated RBC % Seg Neutrophils # 16.6 H Seg Neutrophils # Man Lymphocytes # (Manual) Monocytes # (Manual) Eosinophils # (Manual) PT INR Fibrinogen dRVVT Confirm Interp Factor V Activity POC ABG pH POC ABG pCO2 POC ABG pO2 Sodium 134 L Potassium Chloride 97.2 L Carbon Dioxide 20 L BUN 58 H Creatinine 2.9 H Glucose 147 H POC Glucose Lactic Acid Calcium Phosphorus 2.40 L Magnesium 2.40 H Direct Bilirubin ALT Alkaline Phosphatase Troponin T C-Reactive Protein Total Protein 5.8 L Albumin 2.2 L Triglycerides Cholesterol LDL Cholesterol Direct HDL Cholesterol Urine WBC (Auto) Urine Creatinine Urine Total Protein Vancomycin Trough Rheumatoid Factor Complement C4 58 H Miscellaneous Test Crossmatch 09/07/16 09/07/16 09/07/16 11:50 16:00 17:31 WBC RBC Hgb Hct MCV MCH MCHC RDW Plt Count Lymph % (Auto) [place] % (Auto) Lymph # [place] # Baso # Seg Neutrophils % Seg Neuts % (Manual) Lymphocytes % (Manual) Monocytes % (Manual) Eosinophils % (Manual) Basophils % (Manual) Nucleated RBC % Seg Neutrophils # Seg Neutrophils # Man Lymphocytes # (Manual) Monocytes # (Manual) Eosinophils # (Manual) PT INR Fibrinogen dRVVT Confirm Interp Factor V Activity POC ABG pH POC ABG pCO2 POC ABG pO2 158 H Sodium Potassium Chloride Carbon Dioxide BUN Creatinine Glucose POC Glucose 175 H Lactic Acid Calcium Phosphorus Magnesium Direct Bilirubin ALT Alkaline Phosphatase Troponin T C-Reactive Protein Total Protein Albumin Triglycerides Cholesterol LDL Cholesterol Direct HDL Cholesterol Urine WBC (Auto) Urine Creatinine 66.3 H Urine Total Protein Vancomycin Trough Rheumatoid Factor Complement C4 Miscellaneous Test Crossmatch 09/07/16 09/08/16 09/08/16 23:50 05:46 06:18 WBC 17.8 H RBC 3.58 L Hgb 8.1 L Hct 25.5 L MCV 71 L MCH 23 L MCHC RDW 18.4 H Plt Count Lymph % (Auto) [place] % (Auto) Lymph # [place] # Baso # Seg Neutrophils % Seg Neuts % (Manual) 92.0 H Lymphocytes % (Manual) 6.0 L Monocytes % (Manual) Eosinophils % (Manual) Basophils % (Manual) Nucleated RBC % Seg Neutrophils # Seg Neutrophils # Man 16.4 H Lymphocytes # (Manual) 1.1 L Monocytes # (Manual) Eosinophils # (Manual) PT INR Fibrinogen dRVVT Confirm Interp Factor V Activity POC ABG pH POC ABG pCO2 34.3 L POC ABG pO2 71 L Sodium Potassium Chloride Carbon Dioxide BUN Creatinine Glucose POC Glucose 216 H Lactic Acid Calcium Phosphorus Magnesium Direct Bilirubin ALT Alkaline Phosphatase Troponin T C-Reactive Protein Total Protein Albumin Triglycerides Cholesterol LDL Cholesterol Direct HDL Cholesterol Urine WBC (Auto) Urine Creatinine Urine Total Protein Vancomycin Trough Rheumatoid Factor Complement C4 Miscellaneous Test Crossmatch 09/08/16 09/08/16 09/08/16 06:18 06:51 10:55 WBC RBC Hgb Hct MCV MCH MCHC RDW Plt Count Lymph % (Auto) [place] % (Auto) Lymph # [place] # Baso # Seg Neutrophils % Seg Neuts % (Manual) Lymphocytes % (Manual) Monocytes % (Manual) Eosinophils % (Manual) Basophils % (Manual) Nucleated RBC % Seg Neutrophils # Seg Neutrophils # Man Lymphocytes # (Manual) Monocytes # (Manual) Eosinophils # (Manual) PT INR Fibrinogen dRVVT Confirm Interp Factor V Activity POC ABG pH POC ABG pCO2 POC ABG pO2 Sodium 133 L Potassium Chloride 96.9 L Carbon Dioxide 20 L BUN 63 H Creatinine 2.7 H Glucose 195 H POC Glucose 204 H 169 H Lactic Acid Calcium Phosphorus Magnesium Direct Bilirubin ALT Alkaline Phosphatase Troponin T C-Reactive Protein Total Protein Albumin Triglycerides Cholesterol LDL Cholesterol Direct HDL Cholesterol Urine WBC (Auto) Urine Creatinine Urine Total Protein Vancomycin Trough Rheumatoid Factor Complement C4 Miscellaneous Test Crossmatch 09/08/16 09/08/16 09/08/16 11:48 11:48 11:48 WBC RBC Hgb Hct MCV MCH MCHC RDW Plt Count Lymph % (Auto) [place] % (Auto) Lymph # [place] # Baso # Seg Neutrophils % Seg Neuts % (Manual) Lymphocytes % (Manual) Monocytes % (Manual) Eosinophils % (Manual) Basophils % (Manual) Nucleated RBC % Seg Neutrophils # Seg Neutrophils # Man Lymphocytes # (Manual) Monocytes # (Manual) Eosinophils # (Manual) PT INR Fibrinogen 750 H dRVVT Confirm Interp Factor V Activity POC ABG pH POC ABG pCO2 POC ABG pO2 Sodium Potassium Chloride Carbon Dioxide BUN Creatinine Glucose POC Glucose Lactic Acid Calcium Phosphorus Magnesium Direct Bilirubin ALT Alkaline Phosphatase Troponin T C-Reactive Protein 15.70 H Total Protein Albumin Triglycerides Cholesterol LDL Cholesterol Direct HDL Cholesterol Urine WBC (Auto) Urine Creatinine Urine Total Protein Vancomycin Trough Rheumatoid Factor 24 H Complement C4 Miscellaneous Test Crossmatch 09/08/16 09/08/16 09/09/16 15:35 18:25 00:24 WBC RBC Hgb Hct MCV MCH MCHC RDW Plt Count Lymph % (Auto) [place] % (Auto) Lymph # [place] # Baso # Seg Neutrophils % Seg Neuts % (Manual) Lymphocytes % (Manual) Monocytes % (Manual) Eosinophils % (Manual) Basophils % (Manual) Nucleated RBC % Seg Neutrophils # Seg Neutrophils # Man Lymphocytes # (Manual) Monocytes # (Manual) Eosinophils # (Manual) PT INR Fibrinogen dRVVT Confirm Interp Factor V Activity 182 H POC ABG pH POC ABG pCO2 POC ABG pO2 Sodium Potassium Chloride Carbon Dioxide BUN Creatinine Glucose POC Glucose 184 H 216 H Lactic Acid Calcium Phosphorus Magnesium Direct Bilirubin ALT Alkaline Phosphatase Troponin T C-Reactive Protein Total Protein Albumin Triglycerides Cholesterol LDL Cholesterol Direct HDL Cholesterol Urine WBC (Auto) Urine Creatinine Urine Total Protein Vancomycin Trough Rheumatoid Factor Complement C4 Miscellaneous Test Crossmatch 09/09/16 09/09/16 09/09/16 03:00 03:00 04:04 WBC 27.9 H RBC Hgb 8.7 L Hct 28.1 L MCV 72 L MCH 22 L MCHC RDW 18.4 H Plt Count 485 H Lymph % (Auto) [place] % (Auto) Lymph # [place] # Baso # Seg Neutrophils % Seg Neuts % (Manual) 77.0 H Lymphocytes % (Manual) 9.0 L Monocytes % (Manual) Eosinophils % (Manual) Basophils % (Manual) Nucleated RBC % Seg Neutrophils # Seg Neutrophils # Man 21.5 H Lymphocytes # (Manual) Monocytes # (Manual) 2.0 H Eosinophils # (Manual) PT INR Fibrinogen dRVVT Confirm Interp Factor V Activity POC ABG pH POC ABG pCO2 POC ABG pO2 121 H Sodium 135 L Potassium Chloride 96.3 L Carbon Dioxide 21 L BUN 83 H Creatinine 3.0 H Glucose 135 H POC Glucose Lactic Acid Calcium Phosphorus Magnesium Direct Bilirubin ALT Alkaline Phosphatase Troponin T C-Reactive Protein Total Protein Albumin Triglycerides Cholesterol LDL Cholesterol Direct HDL Cholesterol Urine WBC (Auto) Urine Creatinine Urine Total Protein Vancomycin Trough Rheumatoid Factor Complement C4 Miscellaneous Test Crossmatch 0709/09/16 09/09/16 05:41 11:55 14:13 WBC RBC Hgb Hct MCV MCH MCHC RDW Plt Count Lymph % (Auto) [place] % (Auto) Lymph # [place] # Baso # Seg Neutrophils % Seg Neuts % (Manual) Lymphocytes % (Manual) Monocytes % (Manual) Eosinophils % (Manual) Basophils % (Manual) Nucleated RBC % Seg Neutrophils # Seg Neutrophils # Man Lymphocytes # (Manual) Monocytes # (Manual) Eosinophils # (Manual) PT INR Fibrinogen dRVVT Confirm Interp Factor V Activity POC ABG pH POC ABG pCO2 POC ABG pO2 Sodium Potassium Chloride Carbon Dioxide BUN Creatinine Glucose POC Glucose 155 H 186 H Lactic Acid Calcium Phosphorus Magnesium Direct Bilirubin ALT Alkaline Phosphatase Troponin T C-Reactive Protein Total Protein Albumin Triglycerides Cholesterol LDL Cholesterol Direct HDL Cholesterol Urine WBC (Auto) 25.0 H Urine Creatinine Urine Total Protein Vancomycin Trough Rheumatoid Factor Complement C4 Miscellaneous Test Crossmatch 09/09/16 09/09/16 09/10/16 17:33 23:13 05:09 WBC RBC Hgb Hct MCV MCH MCHC RDW Plt Count Lymph % (Auto) [place] % (Auto) Lymph # [place] # Baso # Seg Neutrophils % Seg Neuts % (Manual) Lymphocytes % (Manual) Monocytes % (Manual) Eosinophils % (Manual) Basophils % (Manual) Nucleated RBC % Seg Neutrophils # Seg Neutrophils # Man Lymphocytes # (Manual) Monocytes # (Manual) Eosinophils # (Manual) PT INR Fibrinogen dRVVT Confirm Interp Factor V Activity POC ABG pH POC ABG pCO2 POC ABG pO2 74 L Sodium Potassium Chloride Carbon Dioxide BUN Creatinine Glucose POC Glucose 211 H 215 H Lactic Acid Calcium Phosphorus Magnesium Direct Bilirubin ALT Alkaline Phosphatase Troponin T C-Reactive Protein Total Protein Albumin Triglycerides Cholesterol LDL Cholesterol Direct HDL Cholesterol Urine WBC (Auto) Urine Creatinine Urine Total Protein Vancomycin Trough Rheumatoid Factor Complement C4 Miscellaneous Test Crossmatch 09/10/16 09/10/16 09/10/16 05:17 05:17 11:31 WBC 15.8 H RBC 3.25 L Hgb 7.3 L Hct 22.9 L MCV 71 L MCH 23 L MCHC RDW 18.4 H Plt Count Lymph % (Auto) [place] % (Auto) Lymph # [place] # Baso # Seg Neutrophils % Seg Neuts % (Manual) 91.0 H Lymphocytes % (Manual) 4.0 L Monocytes % (Manual) Eosinophils % (Manual) Basophils % (Manual) Nucleated RBC % Seg Neutrophils # Seg Neutrophils # Man 14.4 H Lymphocytes # (Manual) 0.6 L Monocytes # (Manual) Eosinophils # (Manual) PT INR Fibrinogen dRVVT Confirm Interp Factor V Activity POC ABG pH POC ABG pCO2 POC ABG pO2 Sodium Potassium Chloride Carbon Dioxide 21 L BUN 93 H Creatinine 2.9 H Glucose 146 H POC Glucose 188 H Lactic Acid Calcium 8.1 L Phosphorus Magnesium Direct Bilirubin ALT Alkaline Phosphatase Troponin T C-Reactive Protein Total Protein Albumin Triglycerides Cholesterol LDL Cholesterol Direct HDL Cholesterol Urine WBC (Auto) Urine Creatinine Urine Total Protein Vancomycin Trough Rheumatoid Factor Complement C4 Miscellaneous Test Crossmatch 09/10/16 09/10/16 09/10/16 13:17 17:20 23:32 WBC RBC Hgb Hct MCV MCH MCHC RDW Plt Count Lymph % (Auto) [place] % (Auto) Lymph # [place] # Baso # Seg Neutrophils % Seg Neuts % (Manual) Lymphocytes % (Manual) Monocytes % (Manual) Eosinophils % (Manual) Basophils % (Manual) Nucleated RBC % Seg Neutrophils # Seg Neutrophils # Man Lymphocytes # (Manual) Monocytes # (Manual) Eosinophils # (Manual) PT INR Fibrinogen dRVVT Confirm Interp Factor V Activity POC ABG pH POC ABG pCO2 POC ABG pO2 Sodium Potassium Chloride Carbon Dioxide BUN Creatinine Glucose POC Glucose 199 H 186 H Lactic Acid Calcium Phosphorus Magnesium Direct Bilirubin ALT Alkaline Phosphatase Troponin T C-Reactive Protein Total Protein Albumin Triglycerides Cholesterol LDL Cholesterol Direct HDL Cholesterol Urine WBC (Auto) Urine Creatinine Urine Total Protein Vancomycin Trough Rheumatoid Factor Complement C4 Miscellaneous Test Crossmatch See Detail 09/11/16 09/11/16 09/11/16 05:10 05:10 05:17 WBC 28.4 H RBC Hgb 9.2 L Hct 29.3 L D MCV 73 L MCH 23 L MCHC RDW 18.9 H Plt Count 452 H Lymph % (Auto) [place] % (Auto) Lymph # [place] # Baso # Seg Neutrophils % Seg Neuts % (Manual) 89.5 H Lymphocytes % (Manual) 2.0 L Monocytes % (Manual) Eosinophils % (Manual) Basophils % (Manual) Nucleated RBC % Seg Neutrophils # Seg Neutrophils # Man 25.4 H Lymphocytes # (Manual) 0.6 L Monocytes # (Manual) 1.3 H Eosinophils # (Manual) PT INR Fibrinogen dRVVT Confirm Interp Factor V Activity POC ABG pH POC ABG pCO2 POC ABG pO2 Sodium 136 L Potassium Chloride Carbon Dioxide 18 L BUN 107 H Creatinine 2.6 H Glucose 187 H POC Glucose 230 H Lactic Acid Calcium 8.3 L Phosphorus Magnesium Direct Bilirubin ALT Alkaline Phosphatase Troponin T C-Reactive Protein Total Protein Albumin Triglycerides Cholesterol LDL Cholesterol Direct HDL Cholesterol Urine WBC (Auto) Urine Creatinine Urine Total Protein Vancomycin Trough Rheumatoid Factor Complement C4 Miscellaneous Test Crossmatch 09/11/16 09/11/16 09/11/16 05:55 12:02 17:32 WBC RBC Hgb Hct MCV MCH MCHC RDW Plt Count Lymph % (Auto) [place] % (Auto) Lymph # [place] # Baso # Seg Neutrophils % Seg Neuts % (Manual) Lymphocytes % (Manual) Monocytes % (Manual) Eosinophils % (Manual) Basophils % (Manual) Nucleated RBC % Seg Neutrophils # Seg Neutrophils # Man Lymphocytes # (Manual) Monocytes # (Manual) Eosinophils # (Manual) PT INR Fibrinogen dRVVT Confirm Interp Factor V Activity POC ABG pH POC ABG pCO2 33.8 L POC ABG pO2 Sodium Potassium Chloride Carbon Dioxide BUN Creatinine Glucose POC Glucose 191 H 239 H Lactic Acid Calcium Phosphorus Magnesium Direct Bilirubin ALT Alkaline Phosphatase Troponin T C-Reactive Protein Total Protein Albumin Triglycerides Cholesterol LDL Cholesterol Direct HDL Cholesterol Urine WBC (Auto) Urine Creatinine Urine Total Protein Vancomycin Trough Rheumatoid Factor Complement C4 Miscellaneous Test Crossmatch 09/11/16 09/12/16 09/12/16 23:52 05:09 05:32 WBC RBC Hgb Hct MCV MCH MCHC RDW Plt Count Lymph % (Auto) [place] % (Auto) Lymph # [place] # Baso # Seg Neutrophils % Seg Neuts % (Manual) Lymphocytes % (Manual) Monocytes % (Manual) Eosinophils % (Manual) Basophils % (Manual) Nucleated RBC % Seg Neutrophils # Seg Neutrophils # Man Lymphocytes # (Manual) Monocytes # (Manual) Eosinophils # (Manual) PT INR Fibrinogen dRVVT Confirm Interp Factor V Activity POC ABG pH POC ABG pCO2 34.6 L POC ABG pO2 Sodium Potassium Chloride Carbon Dioxide BUN Creatinine Glucose POC Glucose 265 H 184 H Lactic Acid Calcium Phosphorus Magnesium Direct Bilirubin ALT Alkaline Phosphatase Troponin T C-Reactive Protein Total Protein Albumin Triglycerides Cholesterol LDL Cholesterol Direct HDL Cholesterol Urine WBC (Auto) Urine Creatinine Urine Total Protein Vancomycin Trough Rheumatoid Factor Complement C4 Miscellaneous Test Crossmatch 09/12/16 09/12/1609/12/17 06:45 06:45 07:22 WBC 31.7 H RBC 3.54 L Hgb 8.3 L Hct 25.9 L MCV 73 L MCH 23 L MCHC RDW 18.9 H Plt Count Lymph % (Auto) [place] % (Auto) Lymph # [place] # Baso # Seg Neutrophils % Seg Neuts % (Manual) 88.5 H Lymphocytes % (Manual) 4.5 L Monocytes % (Manual) Eosinophils % (Manual) Basophils % (Manual) Nucleated RBC % Seg Neutrophils # Seg Neutrophils # Man 28.1 H Lymphocytes # (Manual) Monocytes # (Manual) 1.0 H Eosinophils # (Manual) PT INR Fibrinogen dRVVT Confirm Interp Factor V Activity POC ABG pH POC ABG pCO2 POC ABG pO2 Sodium Potassium Chloride Carbon Dioxide 20 L BUN 115 H Creatinine 2.7 H Glucose 165 H POC Glucose Lactic Acid Calcium 8.0 L Phosphorus Magnesium Direct Bilirubin ALT Alkaline Phosphatase Troponin T C-Reactive Protein Total Protein Albumin Triglycerides 217 H Cholesterol LDL Cholesterol Direct HDL Cholesterol Urine WBC (Auto) Urine Creatinine Urine Total Protein Vancomycin Trough Rheumatoid Factor Complement C4 Miscellaneous Test Crossmatch 09/12/16 09/12/16 09/12/16 07:22 09:59 12:21 WBC RBC Hgb Hct MCV MCH MCHC RDW Plt Count Lymph % (Auto) [place] % (Auto) Lymph # [place] # Baso # Seg Neutrophils % Seg Neuts % (Manual) Lymphocytes % (Manual) Monocytes % (Manual) Eosinophils % (Manual) Basophils % (Manual) Nucleated RBC % Seg Neutrophils # Seg Neutrophils # Man Lymphocytes # (Manual) Monocytes # (Manual) Eosinophils # (Manual) PT INR Fibrinogen dRVVT Confirm Interp Positive H Factor V Activity POC ABG pH POC ABG pCO2 POC ABG pO2 Sodium Potassium Chloride Carbon Dioxide BUN Creatinine Glucose POC Glucose 224 H Lactic Acid Calcium Phosphorus Magnesium Direct Bilirubin ALT Alkaline Phosphatase Troponin T C-Reactive Protein 1.70 H Total Protein Albumin Triglycerides Cholesterol LDL Cholesterol Direct HDL Cholesterol Urine WBC (Auto) Urine Creatinine Urine Total Protein Vancomycin Trough Rheumatoid Factor Complement C4 Miscellaneous Test Crossmatch 09/12/16 09/12/16 09/13/16 16:51 23:28 04:00 WBC 45.0 H* RBC Hgb 9.4 L Hct MCV 75 L MCH 23 L MCHC RDW 19.0 H Plt Count 470 H Lymph % (Auto) [place] % (Auto) Lymph # [place] # Baso # Seg Neutrophils % Seg Neuts % (Manual) 89.0 H Lymphocytes % (Manual) 5.0 L Monocytes % (Manual) Eosinophils % (Manual) Basophils % (Manual) Nucleated RBC % Seg Neutrophils # Seg Neutrophils # Man 40.1 H Lymphocytes # (Manual) Monocytes # (Manual) Eosinophils # (Manual) PT INR Fibrinogen dRVVT Confirm Interp Factor V Activity POC ABG pH POC ABG pCO2 POC ABG pO2 Sodium Potassium Chloride Carbon Dioxide BUN Creatinine Glucose POC Glucose 169 H 150 H Lactic Acid Calcium Phosphorus Magnesium Direct Bilirubin ALT Alkaline Phosphatase Troponin T C-Reactive Protein Total Protein Albumin Triglycerides Cholesterol LDL Cholesterol Direct HDL Cholesterol Urine WBC (Auto) Urine Creatinine Urine Total Protein Vancomycin Trough Rheumatoid Factor Complement C4 Miscellaneous Test Crossmatch 09/13/16 09/13/16 09/13/16 04:00 11:26 17:31 WBC RBC Hgb Hct MCV MCH MCHC RDW Plt Count Lymph % (Auto) [place] % (Auto) Lymph # [place] # Baso # Seg Neutrophils % Seg Neuts % (Manual) Lymphocytes % (Manual) Monocytes % (Manual) Eosinophils % (Manual) Basophils % (Manual) Nucleated RBC % Seg Neutrophils # Seg Neutrophils # Man Lymphocytes # (Manual) Monocytes # (Manual) Eosinophils # (Manual) PT INR Fibrinogen dRVVT Confirm Interp Factor V Activity POC ABG pH POC ABG pCO2 POC ABG pO2 Sodium Potassium Chloride Carbon Dioxide 20 L BUN 116 H Creatinine 3.0 H Glucose 172 H POC Glucose 140 H 183 H Lactic Acid Calcium Phosphorus Magnesium Direct Bilirubin ALT Alkaline Phosphatase Troponin T C-Reactive Protein Total Protein 6.2 L Albumin 2.9 L Triglycerides Cholesterol LDL Cholesterol Direct HDL Cholesterol Urine WBC (Auto) Urine Creatinine Urine Total Protein Vancomycin Trough Rheumatoid Factor Complement C4 Miscellaneous Test Crossmatch 09/13/16 09/14/16 09/14/16 23:23 04:06 04:07 WBC 29.4 H RBC Hgb 8.9 L Hct 27.3 L MCV 75 L MCH 24 L MCHC RDW 19.1 H Plt Count Lymph % (Auto) [place] % (Auto) Lymph # [place] # Baso # Seg Neutrophils % Seg Neuts % (Manual) 84.0 H Lymphocytes % (Manual) 6.0 L Monocytes % (Manual) 9.0 H Eosinophils % (Manual) Basophils % (Manual) Nucleated RBC % Seg Neutrophils # Seg Neutrophils # Man 24.7 H Lymphocytes # (Manual) Monocytes # (Manual) 2.6 H Eosinophils # (Manual) PT INR Fibrinogen dRVVT Confirm Interp Factor V Activity POC ABG pH 7.342 L POC ABG pCO2 POC ABG pO2 116 H Sodium Potassium Chloride Carbon Dioxide BUN Creatinine Glucose POC Glucose 154 H Lactic Acid Calcium Phosphorus Magnesium Direct Bilirubin ALT Alkaline Phosphatase Troponin T C-Reactive Protein Total Protein Albumin Triglycerides Cholesterol LDL Cholesterol Direct HDL Cholesterol Urine WBC (Auto) Urine Creatinine Urine Total Protein Vancomycin Trough Rheumatoid Factor Complement C4 Miscellaneous Test Crossmatch 09/14/16 09/14/16 09/14/16 04:07 05:29 12:19 WBC RBC Hgb Hct MCV MCH MCHC RDW Plt Count Lymph % (Auto) [place] % (Auto) Lymph # [place] # Baso # Seg Neutrophils % Seg Neuts % (Manual) Lymphocytes % (Manual) Monocytes % (Manual) Eosinophils % (Manual) Basophils % (Manual) Nucleated RBC % Seg Neutrophils # Seg Neutrophils # Man Lymphocytes # (Manual) Monocytes # (Manual) Eosinophils # (Manual) PT INR Fibrinogen dRVVT Confirm Interp Factor V Activity POC ABG pH POC ABG pCO2 POC ABG pO2 Sodium 136 L Potassium Chloride Carbon Dioxide 18 L BUN 121 H Creatinine 2.8 H Glucose 214 H POC Glucose 239 H 181 H Lactic Acid Calcium Phosphorus Magnesium Direct Bilirubin ALT Alkaline Phosphatase Troponin T C-Reactive Protein Total Protein Albumin Triglycerides Cholesterol LDL Cholesterol Direct HDL Cholesterol Urine WBC (Auto) Urine Creatinine Urine Total Protein Vancomycin Trough Rheumatoid Factor Complement C4 Miscellaneous Test Crossmatch 09/14/16 09/14/16 09/15/16 18:12 23:37 05:00 WBC 26.1 H RBC 3.05 L Hgb 7.2 L Hct 22.9 L MCV 75 L MCH 24 L MCHC RDW 19.0 H Plt Count Lymph % (Auto) [place] % (Auto) Lymph # [place] # Baso # Seg Neutrophils % Seg Neuts % (Manual) Lymphocytes % (Manual) Monocytes % (Manual) Eosinophils % (Manual) Basophils % (Manual) Nucleated RBC % Seg Neutrophils # Seg Neutrophils # Man Lymphocytes # (Manual) Monocytes # (Manual) Eosinophils # (Manual) PT INR Fibrinogen dRVVT Confirm Interp Factor V Activity POC ABG pH POC ABG pCO2 POC ABG pO2 Sodium Potassium Chloride Carbon Dioxide BUN Creatinine Glucose POC Glucose 266 H 154 H Lactic Acid Calcium Phosphorus Magnesium Direct Bilirubin ALT Alkaline Phosphatase Troponin T C-Reactive Protein Total Protein Albumin Triglycerides Cholesterol LDL Cholesterol Direct HDL Cholesterol Urine WBC (Auto) Urine Creatinine Urine Total Protein Vancomycin Trough Rheumatoid Factor Complement C4 Miscellaneous Test Crossmatch 09/15/16 09/15/16 09/15/16 05:00 05:17 12:45 WBC RBC Hgb Hct MCV MCH MCHC RDW Plt Count Lymph % (Auto) [place] % (Auto) Lymph # [place] # Baso # Seg Neutrophils % Seg Neuts % (Manual) Lymphocytes % (Manual) Monocytes % (Manual) Eosinophils % (Manual) Basophils % (Manual) Nucleated RBC % Seg Neutrophils # Seg Neutrophils # Man Lymphocytes # (Manual) Monocytes # (Manual) Eosinophils # (Manual) PT INR Fibrinogen dRVVT Confirm Interp Factor V Activity POC ABG pH POC ABG pCO2 POC ABG pO2 Sodium Potassium 5.2 H Chloride Carbon Dioxide 18 L BUN 139 H Creatinine 3.7 H Glucose 227 H POC Glucose 226 H 244 H Lactic Acid Calcium 8.3 L Phosphorus Magnesium Direct Bilirubin ALT Alkaline Phosphatase Troponin T C-Reactive Protein Total Protein Albumin Triglycerides Cholesterol LDL Cholesterol Direct HDL Cholesterol Urine WBC (Auto) Urine Creatinine Urine Total Protein Vancomycin Trough Rheumatoid Factor Complement C4 Miscellaneous Test Crossmatch 09/15/16 09/15/16 09/15/16 14:32 17:33 23:35 WBC RBC Hgb Hct MCV MCH MCHC RDW Plt Count Lymph % (Auto) [place] % (Auto) Lymph # [place] # Baso # Seg Neutrophils % Seg Neuts % (Manual) Lymphocytes % (Manual) Monocytes % (Manual) Eosinophils % (Manual) Basophils % (Manual) Nucleated RBC % Seg Neutrophils # Seg Neutrophils # Man Lymphocytes # (Manual) Monocytes # (Manual) Eosinophils # (Manual) PT INR Fibrinogen dRVVT Confirm Interp Factor V Activity POC ABG pH POC ABG pCO2 27.7 L POC ABG pO2 120 H Sodium Potassium Chloride Carbon Dioxide BUN Creatinine Glucose POC Glucose 232 H 167 H Lactic Acid Calcium Phosphorus Magnesium Direct Bilirubin ALT Alkaline Phosphatase Troponin T C-Reactive Protein Total Protein Albumin Triglycerides Cholesterol LDL Cholesterol Direct HDL Cholesterol Urine WBC (Auto) Urine Creatinine Urine Total Protein Vancomycin Trough Rheumatoid Factor Complement C4 Miscellaneous Test Crossmatch 09/16/16 09/16/16 09/16/16 03:58 10:27 10:27 WBC 19.0 H RBC 2.77 L Hgb 6.5 L Hct 20.9 L MCV 76 L MCH 23 L MCHC RDW 19.3 H Plt Count Lymph % (Auto) 11.0 L [place] % (Auto) Lymph # [place] # 1.1 H Baso # Seg Neutrophils % 82.5 H Seg Neuts % (Manual) Lymphocytes % (Manual) Monocytes % (Manual) Eosinophils % (Manual) Basophils % (Manual) Nucleated RBC % Seg Neutrophils # 15.7 H Seg Neutrophils # Man Lymphocytes # (Manual) Monocytes # (Manual) Eosinophils # (Manual) PT INR Fibrinogen dRVVT Confirm Interp Factor V Activity POC ABG pH POC ABG pCO2 POC ABG pO2 Sodium Potassium Chloride 109.3 H Carbon Dioxide 18 L BUN 139 H Creatinine 4.1 H Glucose 144 H POC Glucose 146 H Lactic Acid Calcium 8.1 L Phosphorus Magnesium Direct Bilirubin ALT Alkaline Phosphatase Troponin T C-Reactive Protein Total Protein Albumin Triglycerides Cholesterol LDL Cholesterol Direct HDL Cholesterol Urine WBC (Auto) Urine Creatinine Urine Total Protein Vancomycin Trough Rheumatoid Factor Complement C4 Miscellaneous Test Crossmatch 09/16/16 09/16/16 09/16/16 12:04 12:10 13:55 WBC RBC Hgb Hct MCV MCH MCHC RDW Plt Count Lymph % (Auto) [place] % (Auto) Lymph # [place] # Baso # Seg Neutrophils % Seg Neuts % (Manual) Lymphocytes % (Manual) Monocytes % (Manual) Eosinophils % (Manual) Basophils % (Manual) Nucleated RBC % Seg Neutrophils # Seg Neutrophils # Man Lymphocytes # (Manual) Monocytes # (Manual) Eosinophils # (Manual) PT INR Fibrinogen dRVVT Confirm Interp Factor V Activity POC ABG pH POC ABG pCO2 32.9 L POC ABG pO2 Sodium Potassium Chloride Carbon Dioxide BUN Creatinine Glucose POC Glucose 185 H Lactic Acid Calcium Phosphorus Magnesium Direct Bilirubin ALT Alkaline Phosphatase Troponin T C-Reactive Protein Total Protein Albumin Triglycerides Cholesterol LDL Cholesterol Direct HDL Cholesterol Urine WBC (Auto) Urine Creatinine Urine Total Protein Vancomycin Trough Rheumatoid Factor Complement C4 Miscellaneous Test Crossmatch See Detail 09/16/16 09/16/16 09/16/16 17:55 19:19 23:48 WBC RBC Hgb Hct MCV MCH MCHC RDW Plt Count Lymph % (Auto) [place] % (Auto) Lymph # [place] # Baso # Seg Neutrophils % Seg Neuts % (Manual) Lymphocytes % (Manual) Monocytes % (Manual) Eosinophils % (Manual) Basophils % (Manual) Nucleated RBC % Seg Neutrophils # Seg Neutrophils # Man Lymphocytes # (Manual) Monocytes # (Manual) Eosinophils # (Manual) PT INR Fibrinogen dRVVT Confirm Interp Factor V Activity POC ABG pH POC ABG pCO2 POC ABG pO2 Sodium Potassium Chloride Carbon Dioxide BUN Creatinine Glucose POC Glucose 222 H 107 H Lactic Acid Calcium Phosphorus Magnesium Direct Bilirubin ALT Alkaline Phosphatase Troponin T C-Reactive Protein Total Protein Albumin Triglycerides Cholesterol LDL Cholesterol Direct HDL Cholesterol Urine WBC (Auto) Urine Creatinine 47.4 H Urine Total Protein 16 H Vancomycin Trough Rheumatoid Factor Complement C4 Miscellaneous Test Crossmatch 09/17/16 09/17/16 09/17/16 03:45 03:45 04:55 WBC 19.6 H RBC 3.41 L Hgb 8.5 L Hct 26.7 L MCV 78 L MCH 25 L MCHC RDW 19.9 H Plt Count Lymph % (Auto) 9.3 L [place] % (Auto) Lymph # [place] # 1.2 H Baso # Seg Neutrophils % 83.9 H Seg Neuts % (Manual) Lymphocytes % (Manual) Monocytes % (Manual) Eosinophils % (Manual) Basophils % (Manual) Nucleated RBC % Seg Neutrophils # 16.4 H Seg Neutrophils # Man Lymphocytes # (Manual) Monocytes # (Manual) Eosinophils # (Manual) PT INR Fibrinogen dRVVT Confirm Interp Factor V Activity POC ABG pH POC ABG pCO2 POC ABG pO2 Sodium 146 H Potassium 5.1 H Chloride 110.9 H Carbon Dioxide 16 L BUN 146 H Creatinine 4.0 H Glucose 108 H POC Glucose 133 H Lactic Acid Calcium Phosphorus Magnesium 3.00 H Direct Bilirubin ALT Alkaline Phosphatase Troponin T C-Reactive Protein Total Protein Albumin Triglycerides Cholesterol LDL Cholesterol Direct HDL Cholesterol Urine WBC (Auto) Urine Creatinine Urine Total Protein Vancomycin Trough Rheumatoid Factor Complement C4 Miscellaneous Test Crossmatch 09/17/16 09/17/16 09/17/16 11:15 17:33 23:47 WBC RBC Hgb Hct MCV MCH MCHC RDW Plt Count Lymph % (Auto) [place] % (Auto) Lymph # [place] # Baso # Seg Neutrophils % Seg Neuts % (Manual) Lymphocytes % (Manual) Monocytes % (Manual) Eosinophils % (Manual) Basophils % (Manual) Nucleated RBC % Seg Neutrophils # Seg Neutrophils # Man Lymphocytes # (Manual) Monocytes # (Manual) Eosinophils # (Manual) PT INR Fibrinogen dRVVT Confirm Interp Factor V Activity POC ABG pH POC ABG pCO2 POC ABG pO2 Sodium Potassium Chloride Carbon Dioxide BUN Creatinine Glucose POC Glucose 176 H 246 H 148 H Lactic Acid Calcium Phosphorus Magnesium Direct Bilirubin ALT Alkaline Phosphatase Troponin T C-Reactive Protein Total Protein Albumin Triglycerides Cholesterol LDL Cholesterol Direct HDL Cholesterol Urine WBC (Auto) Urine Creatinine Urine Total Protein Vancomycin Trough Rheumatoid Factor Complement C4 Miscellaneous Test Crossmatch 09/18/16 09/18/16 09/18/16 05:33 08:31 08:31 WBC 18.0 H RBC 3.17 L Hgb 9.0 L Hct 25.7 L MCV MCH MCHC 35 H RDW 20.4 H Plt Count Lymph % (Auto) [place] % (Auto) Lymph # [place] # Baso # Seg Neutrophils % Seg Neuts % (Manual) Lymphocytes % (Manual) Monocytes % (Manual) Eosinophils % (Manual) Basophils % (Manual) Nucleated RBC % Seg Neutrophils # Seg Neutrophils # Man Lymphocytes # (Manual) Monocytes # (Manual) Eosinophils # (Manual) PT INR Fibrinogen dRVVT Confirm Interp Factor V Activity POC ABG pH POC ABG pCO2 POC ABG pO2 Sodium Potassium Chloride Carbon Dioxide 15 L BUN 124 H Creatinine 3.8 H Glucose POC Glucose 120 H Lactic Acid Calcium 8.1 L Phosphorus Magnesium Direct Bilirubin ALT Alkaline Phosphatase Troponin T C-Reactive Protein Total Protein Albumin Triglycerides Cholesterol LDL Cholesterol Direct HDL Cholesterol Urine WBC (Auto) Urine Creatinine Urine Total Protein Vancomycin Trough Rheumatoid Factor Complement C4 Miscellaneous Test Crossmatch 09/18/16 09/18/16 09/18/16 12:03 15:34 17:50 WBC RBC Hgb Hct MCV MCH MCHC RDW Plt Count Lymph % (Auto) [place] % (Auto) Lymph # [place] # Baso # Seg Neutrophils % Seg Neuts % (Manual) Lymphocytes % (Manual) Monocytes % (Manual) Eosinophils % (Manual) Basophils % (Manual) Nucleated RBC % Seg Neutrophils # Seg Neutrophils # Man Lymphocytes # (Manual) Monocytes # (Manual) Eosinophils # (Manual) PT INR Fibrinogen dRVVT Confirm Interp Factor V Activity POC ABG pH POC ABG pCO2 25.7 L POC ABG pO2 66 L Sodium Potassium Chloride Carbon Dioxide BUN Creatinine Glucose POC Glucose 156 H 220 H Lactic Acid Calcium Phosphorus Magnesium Direct Bilirubin ALT Alkaline Phosphatase Troponin T C-Reactive Protein Total Protein Albumin Triglycerides Cholesterol LDL Cholesterol Direct HDL Cholesterol Urine WBC (Auto) Urine Creatinine Urine Total Protein Vancomycin Trough Rheumatoid Factor Complement C4 Miscellaneous Test Crossmatch 09/19/16 09/19/16 09/19/16 06:21 09:50 09:50 WBC 17.1 H RBC 3.49 L Hgb 9.0 L Hct 28.1 L MCV MCH 26 L MCHC RDW 20.8 H Plt Count Lymph % (Auto) 11.5 L [place] % (Auto) 7.5 H Lymph # [place] # 1.3 H Baso # Seg Neutrophils % 79.8 H Seg Neuts % (Manual) Lymphocytes % (Manual) Monocytes % (Manual) Eosinophils % (Manual) Basophils % (Manual) Nucleated RBC % Seg Neutrophils # 13.7 H Seg Neutrophils # Man Lymphocytes # (Manual) Monocytes # (Manual) Eosinophils # (Manual) PT INR Fibrinogen dRVVT Confirm Interp Factor V Activity POC ABG pH POC ABG pCO2 POC ABG pO2 Sodium Potassium Chloride 108.6 H Carbon Dioxide 15 L BUN 125 H Creatinine 4.1 H Glucose 124 H POC Glucose 119 H Lactic Acid Calcium Phosphorus Magnesium Direct Bilirubin ALT Alkaline Phosphatase Troponin T C-Reactive Protein Total Protein Albumin Triglycerides Cholesterol LDL Cholesterol Direct HDL Cholesterol Urine WBC (Auto) Urine Creatinine Urine Total Protein Vancomycin Trough Rheumatoid Factor Complement C4 Miscellaneous Test Crossmatch 09/19/16 09/19/16 09/19/16 11:25 17:53 23:36 WBC RBC Hgb Hct MCV MCH MCHC RDW Plt Count Lymph % (Auto) [place] % (Auto) Lymph # [place] # Baso # Seg Neutrophils % Seg Neuts % (Manual) Lymphocytes % (Manual) Monocytes % (Manual) Eosinophils % (Manual) Basophils % (Manual) Nucleated RBC % Seg Neutrophils # Seg Neutrophils # Man Lymphocytes # (Manual) Monocytes # (Manual) Eosinophils # (Manual) PT INR Fibrinogen dRVVT Confirm Interp Factor V Activity POC ABG pH POC ABG pCO2 POC ABG pO2 Sodium Potassium Chloride Carbon Dioxide BUN Creatinine Glucose POC Glucose 160 H 245 H 121 H Lactic Acid Calcium Phosphorus Magnesium Direct Bilirubin ALT Alkaline Phosphatase Troponin T C-Reactive Protein Total Protein Albumin Triglycerides Cholesterol LDL Cholesterol Direct HDL Cholesterol Urine WBC (Auto) Urine Creatinine Urine Total Protein Vancomycin Trough Rheumatoid Factor Complement C4 Miscellaneous Test Crossmatch 09/20/16 09/20/16 09/20/16 04:10 04:10 04:10 WBC 17.0 H RBC 3.21 L Hgb 8.2 L Hct 25.5 L MCV MCH 26 L MCHC RDW 20.9 H Plt Count Lymph % (Auto) [place] % (Auto) Lymph # [place] # Baso # Seg Neutrophils % Seg Neuts % (Manual) Lymphocytes % (Manual) Monocytes % (Manual) Eosinophils % (Manual) Basophils % (Manual) Nucleated RBC % Seg Neutrophils # Seg Neutrophils # Man Lymphocytes # (Manual) Monocytes # (Manual) Eosinophils # (Manual) PT INR Fibrinogen dRVVT Confirm Interp Factor V Activity POC ABG pH POC ABG pCO2 POC ABG pO2 Sodium Potassium Chloride 111.0 H Carbon Dioxide 16 L BUN 129 H Creatinine 3.7 H Glucose 115 H POC Glucose Lactic Acid Calcium 8.2 L Phosphorus Magnesium Direct Bilirubin ALT Alkaline Phosphatase Troponin T C-Reactive Protein Total Protein Albumin Triglycerides 243 H Cholesterol LDL Cholesterol Direct HDL Cholesterol Urine WBC (Auto) Urine Creatinine Urine Total Protein Vancomycin Trough Rheumatoid Factor Complement C4 Miscellaneous Test Crossmatch 09/20/16 09/20/16 09/20/16 05:40 11:52 16:50 WBC RBC Hgb Hct MCV MCH MCHC RDW Plt Count Lymph % (Auto) [place] % (Auto) Lymph # [place] # Baso # Seg Neutrophils % Seg Neuts % (Manual) Lymphocytes % (Manual) Monocytes % (Manual) Eosinophils % (Manual) Basophils % (Manual) Nucleated RBC % Seg Neutrophils # Seg Neutrophils # Man Lymphocytes # (Manual) Monocytes # (Manual) Eosinophils # (Manual) PT INR Fibrinogen dRVVT Confirm Interp Factor V Activity POC ABG pH POC ABG pCO2 POC ABG pO2 Sodium Potassium Chloride Carbon Dioxide BUN Creatinine Glucose POC Glucose 131 H 183 H 236 H Lactic Acid Calcium Phosphorus Magnesium Direct Bilirubin ALT Alkaline Phosphatase Troponin T C-Reactive Protein Total Protein Albumin Triglycerides Cholesterol LDL Cholesterol Direct HDL Cholesterol Urine WBC (Auto) Urine Creatinine Urine Total Protein Vancomycin Trough Rheumatoid Factor Complement C4 Miscellaneous Test Crossmatch 09/20/16 09/21/16 09/21/16 23:51 03:30 04:44 WBC RBC Hgb Hct MCV MCH MCHC RDW Plt Count Lymph % (Auto) [place] % (Auto) Lymph # [place] # Baso # Seg Neutrophils % Seg Neuts % (Manual) Lymphocytes % (Manual) Monocytes % (Manual) Eosinophils % (Manual) Basophils % (Manual) Nucleated RBC % Seg Neutrophils # Seg Neutrophils # Man Lymphocytes # (Manual) Monocytes # (Manual) Eosinophils # (Manual) PT INR Fibrinogen dRVVT Confirm Interp Factor V Activity POC ABG pH POC ABG pCO2 POC ABG pO2 Sodium Potassium Chloride Carbon Dioxide BUN Creatinine Glucose POC Glucose 114 H 141 H Lactic Acid Calcium Phosphorus Magnesium 2.70 H Direct Bilirubin ALT Alkaline Phosphatase Troponin T C-Reactive Protein Total Protein Albumin Triglycerides Cholesterol LDL Cholesterol Direct HDL Cholesterol Urine WBC (Auto) Urine Creatinine Urine Total Protein Vancomycin Trough Rheumatoid Factor Complement C4 Miscellaneous Test Crossmatch 09/21/16 09/21/16 09/21/16 07:45 07:45 10:01 WBC 13.8 H RBC 2.94 L Hgb 7.5 L Hct 23.5 L MCV MCH 26 L MCHC RDW 21.2 H Plt Count Lymph % (Auto) 6.9 L [place] % (Auto) 9.4 H Lymph # 0.9 L [place] # 1.3 H Baso # Seg Neutrophils % 83.2 H Seg Neuts % (Manual) Lymphocytes % (Manual) Monocytes % (Manual) Eosinophils % (Manual) Basophils % (Manual) Nucleated RBC % Seg Neutrophils # 11.5 H Seg Neutrophils # Man Lymphocytes # (Manual) Monocytes # (Manual) Eosinophils # (Manual) PT INR Fibrinogen dRVVT Confirm Interp Factor V Activity POC ABG pH 7.308 L POC ABG pCO2 31.9 L POC ABG pO2 148 H Sodium 147 H Potassium Chloride 114.2 H Carbon Dioxide 15 L BUN 120 H Creatinine 3.9 H Glucose 156 H POC Glucose Lactic Acid Calcium 8.2 L Phosphorus Magnesium Direct Bilirubin ALT Alkaline Phosphatase Troponin T C-Reactive Protein Total Protein Albumin Triglycerides Cholesterol LDL Cholesterol Direct HDL Cholesterol Urine WBC (Auto) Urine Creatinine Urine Total Protein Vancomycin Trough Rheumatoid Factor Complement C4 Miscellaneous Test Crossmatch 09/21/16 09/21/16 09/21/16 12:00 12:03 13:00 WBC RBC Hgb Hct MCV MCH MCHC RDW Plt Count Lymph % (Auto) [place] % (Auto) Lymph # [place] # Baso # Seg Neutrophils % Seg Neuts % (Manual) Lymphocytes % (Manual) Monocytes % (Manual) Eosinophils % (Manual) Basophils % (Manual) Nucleated RBC % Seg Neutrophils # Seg Neutrophils # Man Lymphocytes # (Manual) Monocytes # (Manual) Eosinophils # (Manual) PT INR Fibrinogen dRVVT Confirm Interp Factor V Activity POC ABG pH POC ABG pCO2 POC ABG pO2 Sodium Potassium Chloride Carbon Dioxide BUN Creatinine Glucose POC Glucose 163 H Lactic Acid Calcium Phosphorus Magnesium Direct Bilirubin ALT Alkaline Phosphatase Troponin T C-Reactive Protein Total Protein Albumin Triglycerides Cholesterol LDL Cholesterol Direct HDL Cholesterol Urine WBC (Auto) Urine Creatinine 54.8 H Urine Total Protein Vancomycin Trough 2.3 L Rheumatoid Factor Complement C4 Miscellaneous Test Crossmatch 09/21/16 09/21/16 09/22/16 16:51 23:17 06:27 WBC RBC Hgb Hct MCV MCH MCHC RDW Plt Count Lymph % (Auto) [place] % (Auto) Lymph # [place] # Baso # Seg Neutrophils % Seg Neuts % (Manual) Lymphocytes % (Manual) Monocytes % (Manual) Eosinophils % (Manual) Basophils % (Manual) Nucleated RBC % Seg Neutrophils # Seg Neutrophils # Man Lymphocytes # (Manual) Monocytes # (Manual) Eosinophils # (Manual) PT INR Fibrinogen dRVVT Confirm Interp Factor V Activity POC ABG pH POC ABG pCO2 POC ABG pO2 Sodium Potassium Chloride Carbon Dioxide BUN Creatinine Glucose POC Glucose 206 H 114 H 115 H Lactic Acid Calcium Phosphorus Magnesium Direct Bilirubin ALT Alkaline Phosphatase Troponin T C-Reactive Protein Total Protein Albumin Triglycerides Cholesterol LDL Cholesterol Direct HDL Cholesterol Urine WBC (Auto) Urine Creatinine Urine Total Protein Vancomycin Trough Rheumatoid Factor Complement C4 Miscellaneous Test Crossmatch 09/22/16 09/22/16 09/22/16 07:50 07:50 12:00 WBC 17.8 H RBC 3.04 L Hgb 8.0 L Hct 24.7 L MCV MCH 26 L MCHC RDW 21.6 H Plt Count Lymph % (Auto) [place] % (Auto) Lymph # [place] # Baso # Seg Neutrophils % Seg Neuts % (Manual) Lymphocytes % (Manual) Monocytes % (Manual) Eosinophils % (Manual) Basophils % (Manual) Nucleated RBC % Seg Neutrophils # Seg Neutrophils # Man Lymphocytes # (Manual) Monocytes # (Manual) Eosinophils # (Manual) PT INR Fibrinogen dRVVT Confirm Interp Factor V Activity POC ABG pH POC ABG pCO2 POC ABG pO2 Sodium 150 H Potassium Chloride 118.2 H Carbon Dioxide 14 L BUN 111 H Creatinine 3.7 H Glucose 157 H POC Glucose 183 H Lactic Acid Calcium Phosphorus Magnesium Direct Bilirubin ALT Alkaline Phosphatase Troponin T C-Reactive Protein Total Protein Albumin Triglycerides Cholesterol LDL Cholesterol Direct HDL Cholesterol Urine WBC (Auto) Urine Creatinine Urine Total Protein Vancomycin Trough Rheumatoid Factor Complement C4 Miscellaneous Test Crossmatch 09/22/16 09/22/16 09/23/16 17:29 23:10 05:00 WBC 19.2 H RBC 3.13 L Hgb 8.0 L Hct 25.2 L MCV MCH 26 L MCHC RDW 22.1 H Plt Count Lymph % (Auto) [place] % (Auto) Lymph # [place] # Baso # Seg Neutrophils % Seg Neuts % (Manual) 92.0 H Lymphocytes % (Manual) 3.0 L Monocytes % (Manual) Eosinophils % (Manual) Basophils % (Manual) Nucleated RBC % Seg Neutrophils # Seg Neutrophils # Man 17.7 H Lymphocytes # (Manual) 0.6 L Monocytes # (Manual) Eosinophils # (Manual) PT INR Fibrinogen dRVVT Confirm Interp Factor V Activity POC ABG pH POC ABG pCO2 POC ABG pO2 Sodium Potassium Chloride Carbon Dioxide BUN Creatinine Glucose POC Glucose 197 H 169 H Lactic Acid Calcium Phosphorus Magnesium Direct Bilirubin ALT Alkaline Phosphatase Troponin T C-Reactive Protein Total Protein Albumin Triglycerides Cholesterol LDL Cholesterol Direct HDL Cholesterol Urine WBC (Auto) Urine Creatinine Urine Total Protein Vancomycin Trough Rheumatoid Factor Complement C4 Miscellaneous Test Crossmatch 09/23/16 09/23/16 09/23/16 05:00 05:00 05:10 WBC RBC Hgb Hct MCV MCH MCHC RDW Plt Count Lymph % (Auto) [place] % (Auto) Lymph # [place] # Baso # Seg Neutrophils % Seg Neuts % (Manual) Lymphocytes % (Manual) Monocytes % (Manual) Eosinophils % (Manual) Basophils % (Manual) Nucleated RBC % Seg Neutrophils # Seg Neutrophils # Man Lymphocytes # (Manual) Monocytes # (Manual) Eosinophils # (Manual) PT INR Fibrinogen dRVVT Confirm Interp Factor V Activity POC ABG pH POC ABG pCO2 POC ABG pO2 Sodium 147 H Potassium 3.2 L Chloride 115.7 H Carbon Dioxide 13 L BUN 111 H Creatinine 3.8 H Glucose 194 H POC Glucose 188 H Lactic Acid Calcium 7.3 L D Phosphorus Magnesium Direct Bilirubin ALT Alkaline Phosphatase Troponin T C-Reactive Protein 3.20 H Total Protein Albumin Triglycerides Cholesterol LDL Cholesterol Direct HDL Cholesterol Urine WBC (Auto) Urine Creatinine Urine Total Protein Vancomycin Trough Rheumatoid Factor Complement C4 Miscellaneous Test Crossmatch 09/23/16 09/23/16 09/23/16 11:37 12:29 18:01 WBC RBC Hgb Hct MCV MCH MCHC RDW Plt Count Lymph % (Auto) [place] % (Auto) Lymph # [place] # Baso # Seg Neutrophils % Seg Neuts % (Manual) Lymphocytes % (Manual) Monocytes % (Manual) Eosinophils % (Manual) Basophils % (Manual) Nucleated RBC % Seg Neutrophils # Seg Neutrophils # Man Lymphocytes # (Manual) Monocytes # (Manual) Eosinophils # (Manual) PT INR Fibrinogen dRVVT Confirm Interp Factor V Activity POC ABG pH POC ABG pCO2 18.9 L POC ABG pO2 143 H Sodium Potassium Chloride Carbon Dioxide BUN Creatinine Glucose POC Glucose 153 H 108 H Lactic Acid Calcium Phosphorus Magnesium Direct Bilirubin ALT Alkaline Phosphatase Troponin T C-Reactive Protein Total Protein Albumin Triglycerides Cholesterol LDL Cholesterol Direct HDL Cholesterol Urine WBC (Auto) Urine Creatinine Urine Total Protein Vancomycin Trough Rheumatoid Factor Complement C4 Miscellaneous Test Crossmatch 09/23/16 09/23/16 09/24/16 21:19 23:43 05:16 WBC RBC Hgb Hct MCV MCH MCHC RDW Plt Count Lymph % (Auto) [place] % (Auto) Lymph # [place] # Baso # Seg Neutrophils % Seg Neuts % (Manual) Lymphocytes % (Manual) Monocytes % (Manual) Eosinophils % (Manual) Basophils % (Manual) Nucleated RBC % Seg Neutrophils # Seg Neutrophils # Man Lymphocytes # (Manual) Monocytes # (Manual) Eosinophils # (Manual) PT INR Fibrinogen dRVVT Confirm Interp Factor V Activity POC ABG pH POC ABG pCO2 17.3 L POC ABG pO2 112 H Sodium Potassium Chloride Carbon Dioxide BUN Creatinine Glucose POC Glucose 143 H 164 H Lactic Acid Calcium Phosphorus Magnesium Direct Bilirubin ALT Alkaline Phosphatase Troponin T C-Reactive Protein Total Protein Albumin Triglycerides Cholesterol LDL Cholesterol Direct HDL Cholesterol Urine WBC (Auto) Urine Creatinine Urine Total Protein Vancomycin Trough Rheumatoid Factor Complement C4 Miscellaneous Test Crossmatch 09/24/16 09/24/16 09/24/16 05:21 11:58 17:06 WBC RBC Hgb Hct MCV MCH MCHC RDW Plt Count Lymph % (Auto) [place] % (Auto) Lymph # [place] # Baso # Seg Neutrophils % Seg Neuts % (Manual) Lymphocytes % (Manual) Monocytes % (Manual) Eosinophils % (Manual) Basophils % (Manual) Nucleated RBC % Seg Neutrophils # Seg Neutrophils # Man Lymphocytes # (Manual) Monocytes # (Manual) Eosinophils # (Manual) PT INR Fibrinogen dRVVT Confirm Interp Factor V Activity POC ABG pH POC ABG pCO2 POC ABG pO2 Sodium Potassium Chloride Carbon Dioxide 10 L BUN 103 H Creatinine 4.3 H Glucose 163 H POC Glucose 173 H 167 H Lactic Acid Calcium 6.5 L Phosphorus Magnesium Direct Bilirubin ALT Alkaline Phosphatase Troponin T C-Reactive Protein Total Protein Albumin Triglycerides Cholesterol LDL Cholesterol Direct HDL Cholesterol Urine WBC (Auto) Urine Creatinine Urine Total Protein Vancomycin Trough Rheumatoid Factor Complement C4 Miscellaneous Test Crossmatch 09/24/16 09/24/16 09/24/16 20:15 21:02 23:48 WBC RBC Hgb Hct MCV MCH MCHC RDW Plt Count Lymph % (Auto) [place] % (Auto) Lymph # [place] # Baso # Seg Neutrophils % Seg Neuts % (Manual) Lymphocytes % (Manual) Monocytes % (Manual) Eosinophils % (Manual) Basophils % (Manual) Nucleated RBC % Seg Neutrophils # Seg Neutrophils # Man Lymphocytes # (Manual) Monocytes # (Manual) Eosinophils # (Manual) PT INR Fibrinogen dRVVT Confirm Interp Factor V Activity POC ABG pH 7.288 L POC ABG pCO2 30.2 L 21.5 L POC ABG pO2 32 L 39 L Sodium Potassium Chloride Carbon Dioxide BUN Creatinine Glucose POC Glucose 109 H Lactic Acid Calcium Phosphorus Magnesium Direct Bilirubin ALT Alkaline Phosphatase Troponin T C-Reactive Protein Total Protein Albumin Triglycerides Cholesterol LDL Cholesterol Direct HDL Cholesterol Urine WBC (Auto) Urine Creatinine Urine Total Protein Vancomycin Trough Rheumatoid Factor Complement C4 Miscellaneous Test Crossmatch 09/25/16 09/25/16 09/25/16 04:20 04:20 04:20 WBC RBC 2.58 L Hgb 7.0 L Hct 21.0 L MCV MCH 27 L MCHC RDW 23.8 H Plt Count Lymph % (Auto) [place] % (Auto) Lymph # [place] # Baso # Seg Neutrophils % Seg Neuts % (Manual) Lymphocytes % (Manual) 12.0 L Monocytes % (Manual) Eosinophils % (Manual) 7.0 H Basophils % (Manual) 2.0 H Nucleated RBC % Seg Neutrophils # Seg Neutrophils # Man Lymphocytes # (Manual) 0.9 L Monocytes # (Manual) Eosinophils # (Manual) 0.5 H PT INR Fibrinogen dRVVT Confirm Interp Factor V Activity POC ABG pH POC ABG pCO2 POC ABG pO2 Sodium Potassium Chloride Carbon Dioxide 15 L BUN 72 H Creatinine 3.8 H Glucose POC Glucose Lactic Acid Calcium 6.0 L Phosphorus 4.60 H Magnesium 1.60 L Direct Bilirubin ALT Alkaline Phosphatase Troponin T C-Reactive Protein Total Protein Albumin Triglycerides Cholesterol LDL Cholesterol Direct HDL Cholesterol Urine WBC (Auto) Urine Creatinine Urine Total Protein Vancomycin Trough Rheumatoid Factor Complement C4 Miscellaneous Test Crossmatch 09/25/16 09/25/16 09/25/16 04:57 08:02 10:30 WBC RBC Hgb Hct MCV MCH MCHC RDW Plt Count Lymph % (Auto) [place] % (Auto) Lymph # [place] # Baso # Seg Neutrophils % Seg Neuts % (Manual) Lymphocytes % (Manual) Monocytes % (Manual) Eosinophils % (Manual) Basophils % (Manual) Nucleated RBC % Seg Neutrophils # Seg Neutrophils # Man Lymphocytes # (Manual) Monocytes # (Manual) Eosinophils # (Manual) PT INR Fibrinogen dRVVT Confirm Interp Factor V Activity POC ABG pH POC ABG pCO2 24.7 L POC ABG pO2 152 H Sodium Potassium Chloride Carbon Dioxide BUN Creatinine Glucose POC Glucose 113 H Lactic Acid Calcium Phosphorus Magnesium Direct Bilirubin ALT Alkaline Phosphatase Troponin T C-Reactive Protein Total Protein Albumin Triglycerides Cholesterol LDL Cholesterol Direct HDL Cholesterol Urine WBC (Auto) Urine Creatinine Urine Total Protein Vancomycin Trough Rheumatoid Factor Complement C4 Miscellaneous Test Crossmatch See Detail 09/25/16 09/25/16 09/25/16 12:05 17:44 23:47 WBC RBC Hgb Hct MCV MCH MCHC RDW Plt Count Lymph % (Auto) [place] % (Auto) Lymph # [place] # Baso # Seg Neutrophils % Seg Neuts % (Manual) Lymphocytes % (Manual) Monocytes % (Manual) Eosinophils % (Manual) Basophils % (Manual) Nucleated RBC % Seg Neutrophils # Seg Neutrophils # Man Lymphocytes # (Manual) Monocytes # (Manual) Eosinophils # (Manual) PT INR Fibrinogen dRVVT Confirm Interp Factor V Activity POC ABG pH POC ABG pCO2 POC ABG pO2 Sodium Potassium Chloride Carbon Dioxide BUN Creatinine Glucose POC Glucose 117 H 119 H 150 H Lactic Acid Calcium Phosphorus Magnesium Direct Bilirubin ALT Alkaline Phosphatase Troponin T C-Reactive Protein Total Protein Albumin Triglycerides Cholesterol LDL Cholesterol Direct HDL Cholesterol Urine WBC (Auto) Urine Creatinine Urine Total Protein Vancomycin Trough Rheumatoid Factor Complement C4 Miscellaneous Test Crossmatch 09/26/16 09/26/16 09/26/16 04:25 04:25 04:25 WBC RBC 2.65 L Hgb 7.4 L Hct 21.6 L MCV MCH MCHC RDW 22.5 H Plt Count Lymph % (Auto) [place] % (Auto) Lymph # [place] # Baso # Seg Neutrophils % Seg Neuts % (Manual) Lymphocytes % (Manual) 6.0 L Monocytes % (Manual) Eosinophils % (Manual) 11.0 H Basophils % (Manual) Nucleated RBC % Seg Neutrophils # Seg Neutrophils # Man Lymphocytes # (Manual) 0.4 L Monocytes # (Manual) Eosinophils # (Manual) 0.6 H PT INR Fibrinogen dRVVT Confirm Interp Factor V Activity POC ABG pH POC ABG pCO2 POC ABG pO2 Sodium Potassium Chloride 97.0 L Carbon Dioxide 19 L BUN 43 H Creatinine 2.6 H Glucose 130 H POC Glucose Lactic Acid 4.40 H* Calcium 6.7 L Phosphorus Magnesium Direct Bilirubin ALT Alkaline Phosphatase Troponin T C-Reactive Protein Total Protein Albumin Triglycerides Cholesterol LDL Cholesterol Direct HDL Cholesterol Urine WBC (Auto) Urine Creatinine Urine Total Protein Vancomycin Trough Rheumatoid Factor Complement C4 Miscellaneous Test Crossmatch 09/26/16 09/26/16 09/26/16 05:20 11:44 12:12 WBC RBC Hgb Hct MCV MCH MCHC RDW Plt Count Lymph % (Auto) [place] % (Auto) Lymph # [place] # Baso # Seg Neutrophils % Seg Neuts % (Manual) Lymphocytes % (Manual) Monocytes % (Manual) Eosinophils % (Manual) Basophils % (Manual) Nucleated RBC % Seg Neutrophils # Seg Neutrophils # Man Lymphocytes # (Manual) Monocytes # (Manual) Eosinophils # (Manual) PT INR Fibrinogen dRVVT Confirm Interp Factor V Activity POC ABG pH POC ABG pCO2 27.0 L POC ABG pO2 69 L Sodium Potassium Chloride Carbon Dioxide BUN Creatinine Glucose POC Glucose 121 H 128 H Lactic Acid Calcium Phosphorus Magnesium Direct Bilirubin ALT Alkaline Phosphatase Troponin T C-Reactive Protein Total Protein Albumin Triglycerides Cholesterol LDL Cholesterol Direct HDL Cholesterol Urine WBC (Auto) Urine Creatinine Urine Total Protein Vancomycin Trough Rheumatoid Factor Complement C4 Miscellaneous Test Crossmatch 09/26/16 09/26/16 09/27/16 18:31 23:40 08:20 WBC RBC Hgb Hct MCV MCH MCHC RDW Plt Count Lymph % (Auto) [place] % (Auto) Lymph # [place] # Baso # Seg Neutrophils % Seg Neuts % (Manual) Lymphocytes % (Manual) Monocytes % (Manual) Eosinophils % (Manual) Basophils % (Manual) Nucleated RBC % Seg Neutrophils # Seg Neutrophils # Man Lymphocytes # (Manual) Monocytes # (Manual) Eosinophils # (Manual) PT INR Fibrinogen dRVVT Confirm Interp Factor V Activity POC ABG pH POC ABG pCO2 POC ABG pO2 Sodium Potassium Chloride Carbon Dioxide BUN Creatinine Glucose POC Glucose 120 H 133 H Lactic Acid 4.10 H* Calcium Phosphorus Magnesium Direct Bilirubin ALT Alkaline Phosphatase Troponin T C-Reactive Protein Total Protein Albumin Triglycerides Cholesterol LDL Cholesterol Direct HDL Cholesterol Urine WBC (Auto) Urine Creatinine Urine Total Protein Vancomycin Trough Rheumatoid Factor Complement C4 Miscellaneous Test Crossmatch 09/27/16 09/27/16 09/27/16 11:23 15:00 18:15 WBC RBC Hgb Hct MCV MCH MCHC RDW Plt Count Lymph % (Auto) [place] % (Auto) Lymph # [place] # Baso # Seg Neutrophils % Seg Neuts % (Manual) Lymphocytes % (Manual) Monocytes % (Manual) Eosinophils % (Manual) Basophils % (Manual) Nucleated RBC % Seg Neutrophils # Seg Neutrophils # Man Lymphocytes # (Manual) Monocytes # (Manual) Eosinophils # (Manual) PT INR Fibrinogen dRVVT Confirm Interp Factor V Activity POC ABG pH 7.459 H POC ABG pCO2 27.1 L POC ABG pO2 140 H Sodium Potassium Chloride Carbon Dioxide BUN Creatinine Glucose POC Glucose 114 H 127 H Lactic Acid Calcium Phosphorus Magnesium Direct Bilirubin ALT Alkaline Phosphatase Troponin T C-Reactive Protein Total Protein Albumin Triglycerides Cholesterol LDL Cholesterol Direct HDL Cholesterol Urine WBC (Auto) Urine Creatinine Urine Total Protein Vancomycin Trough Rheumatoid Factor Complement C4 Miscellaneous Test Crossmatch 09/27/16 09/27/16 09/28/16 Unknown Unknown 03:45 WBC RBC 2.49 L Hgb 6.8 L Hct 20.7 L MCV MCH 27 L MCHC RDW 22.1 H Plt Count Lymph % (Auto) [place] % (Auto) Lymph # [place] # Baso # Seg Neutrophils % Seg Neuts % (Manual) 32.0 L Lymphocytes % (Manual) 12.0 L Monocytes % (Manual) 11.0 H Eosinophils % (Manual) 10.0 H Basophils % (Manual) Nucleated RBC % Seg Neutrophils # Seg Neutrophils # Man Lymphocytes # (Manual) 1.0 L Monocytes # (Manual) 0.9 H Eosinophils # (Manual) 0.8 H PT INR Fibrinogen dRVVT Confirm Interp Factor V Activity POC ABG pH POC ABG pCO2 POC ABG pO2 Sodium 135 L 135 L Potassium 3.5 L Chloride 93.6 L 94.4 L Carbon Dioxide 17 L 21 L BUN 45 H 28 H Creatinine 3.3 H 2.5 H Glucose 106 H POC Glucose Lactic Acid Calcium 7.3 L 7.1 L Phosphorus Magnesium Direct Bilirubin ALT Alkaline Phosphatase Troponin T C-Reactive Protein Total Protein Albumin Triglycerides Cholesterol LDL Cholesterol Direct HDL Cholesterol Urine WBC (Auto) Urine Creatinine Urine Total Protein Vancomycin Trough Rheumatoid Factor Complement C4 Miscellaneous Test Crossmatch 09/28/16 09/28/16 09/28/16 03:45 07:25 11:58 WBC 13.3 H RBC 3.01 L Hgb 8.4 L Hct 25.0 L MCV MCH MCHC RDW 20.5 H Plt Count 128 L Lymph % (Auto) [place] % (Auto) Lymph # [place] # Baso # Seg Neutrophils % Seg Neuts % (Manual) Lymphocytes % (Manual) 7.0 L Monocytes % (Manual) Eosinophils % (Manual) 6.0 H Basophils % (Manual) Nucleated RBC % Seg Neutrophils # Seg Neutrophils # Man Lymphocytes # (Manual) 0.9 L Monocytes # (Manual) Eosinophils # (Manual) 0.8 H PT INR Fibrinogen dRVVT Confirm Interp Factor V Activity POC ABG pH POC ABG pCO2 POC ABG pO2 Sodium Potassium Chloride Carbon Dioxide BUN Creatinine Glucose POC Glucose 121 H Lactic Acid 4.50 H* Calcium Phosphorus Magnesium Direct Bilirubin ALT Alkaline Phosphatase Troponin T C-Reactive Protein Total Protein Albumin Triglycerides Cholesterol LDL Cholesterol Direct HDL Cholesterol Urine WBC (Auto) Urine Creatinine Urine Total Protein Vancomycin Trough Rheumatoid Factor Complement C4 Miscellaneous Test Crossmatch 09/29/16 09/29/16 09/29/16 06:45 06:45 06:45 WBC 14.9 H RBC 2.74 L Hgb 7.6 L Hct 23.2 L MCV MCH MCHC RDW 20.5 H Plt Count 81 L Lymph % (Auto) [place] % (Auto) Lymph # [place] # Baso # Seg Neutrophils % Seg Neuts % (Manual) 81.0 H Lymphocytes % (Manual) 4.0 L Monocytes % (Manual) Eosinophils % (Manual) Basophils % (Manual) Nucleated RBC % Seg Neutrophils # Seg Neutrophils # Man 12.1 H Lymphocytes # (Manual) 0.6 L Monocytes # (Manual) Eosinophils # (Manual) PT INR Fibrinogen dRVVT Confirm Interp Factor V Activity POC ABG pH POC ABG pCO2 POC ABG pO2 Sodium 133 L Potassium 3.4 L Chloride 92.5 L Carbon Dioxide 21 L BUN 33 H Creatinine 3.0 H Glucose POC Glucose Lactic Acid Calcium 6.6 L Phosphorus Magnesium 1.40 L Direct Bilirubin 0.9 H ALT Alkaline Phosphatase Troponin T C-Reactive Protein Total Protein 4.3 L Albumin 1.3 L Triglycerides Cholesterol LDL Cholesterol Direct HDL Cholesterol Urine WBC (Auto) Urine Creatinine Urine Total Protein Vancomycin Trough Rheumatoid Factor Complement C4 Miscellaneous Test Crossmatch 09/29/16 09/29/16 09/30/16 17:52 20:12 00:07 WBC RBC Hgb Hct MCV MCH MCHC RDW Plt Count Lymph % (Auto) [place] % (Auto) Lymph # [place] # Baso # Seg Neutrophils % Seg Neuts % (Manual) Lymphocytes % (Manual) Monocytes % (Manual) Eosinophils % (Manual) Basophils % (Manual) Nucleated RBC % Seg Neutrophils # Seg Neutrophils # Man Lymphocytes # (Manual) Monocytes # (Manual) Eosinophils # (Manual) PT INR Fibrinogen dRVVT Confirm Interp Factor V Activity POC ABG pH POC ABG pCO2 POC ABG pO2 Sodium Potassium Chloride Carbon Dioxide BUN Creatinine Glucose POC Glucose 50 L 51 L Lactic Acid Calcium Phosphorus Magnesium Direct Bilirubin ALT Alkaline Phosphatase Troponin T 0.204 H* C-Reactive Protein Total Protein Albumin Triglycerides Cholesterol 31 L LDL Cholesterol Direct 4 L HDL Cholesterol 3 L Urine WBC (Auto) Urine Creatinine Urine Total Protein Vancomycin Trough Rheumatoid Factor Complement C4 Miscellaneous Test Crossmatch 09/30/16 09/30/16 09/30/16 01:30 05:15 06:10 WBC RBC Hgb Hct MCV MCH MCHC RDW Plt Count Lymph % (Auto) [place] % (Auto) Lymph # [place] # Baso # Seg Neutrophils % Seg Neuts % (Manual) Lymphocytes % (Manual) Monocytes % (Manual) Eosinophils % (Manual) Basophils % (Manual) Nucleated RBC % Seg Neutrophils # Seg Neutrophils # Man Lymphocytes # (Manual) Monocytes # (Manual) Eosinophils # (Manual) PT INR Fibrinogen dRVVT Confirm Interp Factor V Activity POC ABG pH POC ABG pCO2 POC ABG pO2 Sodium 133 L Potassium 3.2 L Chloride 93.2 L Carbon Dioxide 19 L BUN 36 H Creatinine 3.2 H Glucose 104 H POC Glucose 167 H 146 H Lactic Acid Calcium 6.4 L Phosphorus Magnesium 1.60 L Direct Bilirubin ALT Alkaline Phosphatase Troponin T C-Reactive Protein Total Protein Albumin Triglycerides Cholesterol LDL Cholesterol Direct HDL Cholesterol Urine WBC (Auto) Urine Creatinine Urine Total Protein Vancomycin Trough Rheumatoid Factor Complement C4 Miscellaneous Test Crossmatch 09/30/16 09/30/16 09/30/16 11:26 13:39 18:38 WBC RBC Hgb Hct MCV MCH MCHC RDW Plt Count Lymph % (Auto) [place] % (Auto) Lymph # [place] # Baso # Seg Neutrophils % Seg Neuts % (Manual) Lymphocytes % (Manual) Monocytes % (Manual) Eosinophils % (Manual) Basophils % (Manual) Nucleated RBC % Seg Neutrophils # Seg Neutrophils # Man Lymphocytes # (Manual) Monocytes # (Manual) Eosinophils # (Manual) PT INR Fibrinogen dRVVT Confirm Interp Factor V Activity POC ABG pH 7.479 H POC ABG pCO2 29.8 L POC ABG pO2 117 H Sodium Potassium Chloride Carbon Dioxide BUN Creatinine Glucose POC Glucose 140 H 122 H Lactic Acid Calcium Phosphorus Magnesium Direct Bilirubin ALT Alkaline Phosphatase Troponin T C-Reactive Protein Total Protein Albumin Triglycerides Cholesterol LDL Cholesterol Direct HDL Cholesterol Urine WBC (Auto) Urine Creatinine Urine Total Protein Vancomycin Trough Rheumatoid Factor Complement C4 Miscellaneous Test Crossmatch 10/01/16 10/01/16 10/01/16 06:00 06:00 12:37 WBC 12.6 H RBC 2.75 L Hgb 7.3 L Hct 23.3 L MCV MCH 27 L MCHC RDW 20.6 H Plt Count 72 L Lymph % (Auto) [place] % (Auto) Lymph # [place] # Baso # Seg Neutrophils % Seg Neuts % (Manual) 31.0 L Lymphocytes % (Manual) 8.0 L Monocytes % (Manual) Eosinophils % (Manual) Basophils % (Manual) Nucleated RBC % 3.0 H Seg Neutrophils # Seg Neutrophils # Man Lymphocytes # (Manual) 1.0 L Monocytes # (Manual) Eosinophils # (Manual) PT INR Fibrinogen dRVVT Confirm Interp Factor V Activity POC ABG pH POC ABG pCO2 POC ABG pO2 Sodium 127 L Potassium Chloride 86.8 L Carbon Dioxide 20 L BUN 42 H Creatinine 3.5 H Glucose POC Glucose 65 L Lactic Acid Calcium 7.0 L Phosphorus Magnesium Direct Bilirubin ALT Alkaline Phosphatase Troponin T C-Reactive Protein Total Protein Albumin Triglycerides Cholesterol LDL Cholesterol Direct HDL Cholesterol Urine WBC (Auto) Urine Creatinine Urine Total Protein Vancomycin Trough Rheumatoid Factor Complement C4 Miscellaneous Test Crossmatch 10/01/16 10/01/16 10/02/16 17:39 23:32 00:59 WBC RBC Hgb Hct MCV MCH MCHC RDW Plt Count Lymph % (Auto) [place] % (Auto) Lymph # [place] # Baso # Seg Neutrophils % Seg Neuts % (Manual) Lymphocytes % (Manual) Monocytes % (Manual) Eosinophils % (Manual) Basophils % (Manual) Nucleated RBC % Seg Neutrophils # Seg Neutrophils # Man Lymphocytes # (Manual) Monocytes # (Manual) Eosinophils # (Manual) PT INR Fibrinogen dRVVT Confirm Interp Factor V Activity POC ABG pH POC ABG pCO2 POC ABG pO2 Sodium Potassium Chloride Carbon Dioxide BUN Creatinine Glucose POC Glucose 107 H 52 L 145 H Lactic Acid Calcium Phosphorus Magnesium Direct Bilirubin ALT Alkaline Phosphatase Troponin T C-Reactive Protein Total Protein Albumin Triglycerides Cholesterol LDL Cholesterol Direct HDL Cholesterol Urine WBC (Auto) Urine Creatinine Urine Total Protein Vancomycin Trough Rheumatoid Factor Complement C4 Miscellaneous Test Crossmatch 10/02/16 10/02/16 10/02/16 10:30 10:50 10:50 WBC 14.7 H RBC 2.76 L Hgb 7.4 L Hct 23.6 L MCV MCH 27 L MCHC RDW 20.2 H Plt Count 79 L Lymph % (Auto) [place] % (Auto) Lymph # [place] # Baso # Seg Neutrophils % Seg Neuts % (Manual) 86.0 H Lymphocytes % (Manual) 6.0 L Monocytes % (Manual) Eosinophils % (Manual) Basophils % (Manual) Nucleated RBC % Seg Neutrophils # Seg Neutrophils # Man 12.6 H Lymphocytes # (Manual) 0.9 L Monocytes # (Manual) Eosinophils # (Manual) PT INR Fibrinogen dRVVT Confirm Interp Factor V Activity POC ABG pH 7.486 H POC ABG pCO2 30.1 L POC ABG pO2 108 H Sodium 131 L Potassium 3.4 L Chloride 89.9 L Carbon Dioxide BUN 26 H Creatinine 2.6 H Glucose POC Glucose Lactic Acid Calcium 7.0 L Phosphorus Magnesium Direct Bilirubin ALT Alkaline Phosphatase Troponin T C-Reactive Protein Total Protein Albumin Triglycerides Cholesterol LDL Cholesterol Direct HDL Cholesterol Urine WBC (Auto) Urine Creatinine Urine Total Protein Vancomycin Trough Rheumatoid Factor Complement C4 Miscellaneous Test Crossmatch 10/02/16 10/03/16 10/03/16 23:45 00:45 05:10 WBC 12.9 H RBC 2.77 L Hgb 7.6 L Hct 23.7 L MCV MCH 27 L MCHC RDW 19.7 H Plt Count 89 L Lymph % (Auto) [place] % (Auto) Lymph # [place] # Baso # Seg Neutrophils % Seg Neuts % (Manual) Lymphocytes % (Manual) 8.0 L Monocytes % (Manual) Eosinophils % (Manual) Basophils % (Manual) Nucleated RBC % Seg Neutrophils # 11.9 H Seg Neutrophils # Man Lymphocytes # (Manual) 1.0 L Monocytes # (Manual) Eosinophils # (Manual) PT INR Fibrinogen dRVVT Confirm Interp Factor V Activity POC ABG pH POC ABG pCO2 POC ABG pO2 Sodium Potassium Chloride Carbon Dioxide BUN Creatinine Glucose POC Glucose 55 L 199 H Lactic Acid Calcium Phosphorus Magnesium Direct Bilirubin ALT Alkaline Phosphatase Troponin T C-Reactive Protein Total Protein Albumin Triglycerides Cholesterol LDL Cholesterol Direct HDL Cholesterol Urine WBC (Auto) Urine Creatinine Urine Total Protein Vancomycin Trough Rheumatoid Factor Complement C4 Miscellaneous Test Crossmatch 10/03/16 10/03/16 10/03/16 05:10 12:14 13:18 WBC RBC Hgb Hct MCV MCH MCHC RDW Plt Count Lymph % (Auto) [place] % (Auto) Lymph # [place] # Baso # Seg Neutrophils % Seg Neuts % (Manual) Lymphocytes % (Manual) Monocytes % (Manual) Eosinophils % (Manual) Basophils % (Manual) Nucleated RBC % Seg Neutrophils # Seg Neutrophils # Man Lymphocytes # (Manual) Monocytes # (Manual) Eosinophils # (Manual) PT INR Fibrinogen dRVVT Confirm Interp Factor V Activity POC ABG pH POC ABG pCO2 POC ABG pO2 Sodium 129 L Potassium 3.3 L Chloride 88.8 L Carbon Dioxide 20 L BUN 29 H Creatinine 2.8 H Glucose POC Glucose 68 L 127 H Lactic Acid Calcium 7.2 L Phosphorus Magnesium Direct Bilirubin ALT Alkaline Phosphatase Troponin T C-Reactive Protein Total Protein Albumin Triglycerides Cholesterol LDL Cholesterol Direct HDL Cholesterol Urine WBC (Auto) Urine Creatinine Urine Total Protein Vancomycin Trough Rheumatoid Factor Complement C4 Miscellaneous Test Crossmatch 10/03/16 10/03/16 10/03/16 14:42 18:21 19:09 WBC RBC Hgb Hct MCV MCH MCHC RDW Plt Count Lymph % (Auto) [place] % (Auto) Lymph # [place] # Baso # Seg Neutrophils % Seg Neuts % (Manual) Lymphocytes % (Manual) Monocytes % (Manual) Eosinophils % (Manual) Basophils % (Manual) Nucleated RBC % Seg Neutrophils # Seg Neutrophils # Man Lymphocytes # (Manual) Monocytes # (Manual) Eosinophils # (Manual) PT INR Fibrinogen dRVVT Confirm Interp Factor V Activity POC ABG pH 7.499 H POC ABG pCO2 28.4 L POC ABG pO2 44 L Sodium Potassium Chloride Carbon Dioxide BUN Creatinine Glucose POC Glucose 64 L 205 H Lactic Acid Calcium Phosphorus Magnesium Direct Bilirubin ALT Alkaline Phosphatase Troponin T C-Reactive Protein Total Protein Albumin Triglycerides Cholesterol LDL Cholesterol Direct HDL Cholesterol Urine WBC (Auto) Urine Creatinine Urine Total Protein Vancomycin Trough Rheumatoid Factor Complement C4 Miscellaneous Test Crossmatch 10/03/16 10/04/16 10/04/16 23:33 04:18 06:30 WBC RBC 2.54 L Hgb 7.1 L Hct 21.7 L MCV MCH MCHC RDW 19.5 H Plt Count 76 L Lymph % (Auto) [place] % (Auto) Lymph # [place] # Baso # Seg Neutrophils % Seg Neuts % (Manual) 88.0 H Lymphocytes % (Manual) 6.0 L Monocytes % (Manual) Eosinophils % (Manual) Basophils % (Manual) Nucleated RBC % Seg Neutrophils # Seg Neutrophils # Man 8.8 H Lymphocytes # (Manual) 0.6 L Monocytes # (Manual) Eosinophils # (Manual) PT INR Fibrinogen dRVVT Confirm Interp Factor V Activity POC ABG pH 7.461 H POC ABG pCO2 33.6 L POC ABG pO2 211 H Sodium Potassium Chloride Carbon Dioxide BUN Creatinine Glucose POC Glucose 136 H Lactic Acid Calcium Phosphorus Magnesium Direct Bilirubin ALT Alkaline Phosphatase Troponin T C-Reactive Protein Total Protein Albumin Triglycerides Cholesterol LDL Cholesterol Direct HDL Cholesterol Urine WBC (Auto) Urine Creatinine Urine Total Protein Vancomycin Trough Rheumatoid Factor Complement C4 Miscellaneous Test Crossmatch 10/04/16 10/04/16 10/04/16 06:30 11:45 17:54 WBC RBC Hgb Hct MCV MCH MCHC RDW Plt Count Lymph % (Auto) [place] % (Auto) Lymph # [place] # Baso # Seg Neutrophils % Seg Neuts % (Manual) Lymphocytes % (Manual) Monocytes % (Manual) Eosinophils % (Manual) Basophils % (Manual) Nucleated RBC % Seg Neutrophils # Seg Neutrophils # Man Lymphocytes # (Manual) Monocytes # (Manual) Eosinophils # (Manual) PT INR Fibrinogen dRVVT Confirm Interp Factor V Activity POC ABG pH POC ABG pCO2 POC ABG pO2 Sodium 128 L Potassium Chloride 87.4 L Carbon Dioxide 20 L BUN 34 H Creatinine 2.9 H Glucose 127 H POC Glucose 158 H 160 H Lactic Acid Calcium 7.4 L Phosphorus Magnesium Direct Bilirubin ALT Alkaline Phosphatase Troponin T C-Reactive Protein Total Protein Albumin Triglycerides Cholesterol LDL Cholesterol Direct HDL Cholesterol Urine WBC (Auto) Urine Creatinine Urine Total Protein Vancomycin Trough Rheumatoid Factor Complement C4 Miscellaneous Test Crossmatch 10/04/16 10/05/16 10/05/16 23:25 04:30 05:00 WBC RBC 2.64 L Hgb 7.5 L Hct 22.6 L MCV MCH MCHC RDW 19.3 H Plt Count 80 L Lymph % (Auto) [place] % (Auto) Lymph # [place] # Baso # Seg Neutrophils % Seg Neuts % (Manual) Lymphocytes % (Manual) 12.0 L Monocytes % (Manual) Eosinophils % (Manual) Basophils % (Manual) Nucleated RBC % Seg Neutrophils # Seg Neutrophils # Man Lymphocytes # (Manual) Monocytes # (Manual) Eosinophils # (Manual) PT INR Fibrinogen dRVVT Confirm Interp Factor V Activity POC ABG pH 7.475 H POC ABG pCO2 33.3 L POC ABG pO2 140 H Sodium Potassium Chloride Carbon Dioxide BUN Creatinine Glucose POC Glucose 141 H Lactic Acid Calcium Phosphorus Magnesium Direct Bilirubin ALT Alkaline Phosphatase Troponin T C-Reactive Protein Total Protein Albumin Triglycerides Cholesterol LDL Cholesterol Direct HDL Cholesterol Urine WBC (Auto) Urine Creatinine Urine Total Protein Vancomycin Trough Rheumatoid Factor Complement C4 Miscellaneous Test Crossmatch 10/05/16 10/05/16 10/05/16 05:00 05:09 12:58 WBC RBC Hgb Hct MCV MCH MCHC RDW Plt Count Lymph % (Auto) [place] % (Auto) Lymph # [place] # Baso # Seg Neutrophils % Seg Neuts % (Manual) Lymphocytes % (Manual) Monocytes % (Manual) Eosinophils % (Manual) Basophils % (Manual) Nucleated RBC % Seg Neutrophils # Seg Neutrophils # Man Lymphocytes # (Manual) Monocytes # (Manual) Eosinophils # (Manual) PT INR Fibrinogen dRVVT Confirm Interp Factor V Activity POC ABG pH POC ABG pCO2 POC ABG pO2 Sodium 131 L Potassium Chloride 94.0 L Carbon Dioxide 20 L BUN 22 H Creatinine 2.0 H Glucose 123 H POC Glucose 166 H 179 H Lactic Acid Calcium 7.7 L Phosphorus 2.20 L D Magnesium Direct Bilirubin ALT Alkaline Phosphatase Troponin T C-Reactive Protein Total Protein Albumin Triglycerides Cholesterol LDL Cholesterol Direct HDL Cholesterol Urine WBC (Auto) Urine Creatinine Urine Total Protein Vancomycin Trough Rheumatoid Factor Complement C4 Miscellaneous Test Crossmatch 10/05/16 10/05/16 10/05/16 15:50 18:53 23:12 WBC RBC Hgb Hct MCV MCH MCHC RDW Plt Count Lymph % (Auto) [place] % (Auto) Lymph # [place] # Baso # Seg Neutrophils % Seg Neuts % (Manual) Lymphocytes % (Manual) Monocytes % (Manual) Eosinophils % (Manual) Basophils % (Manual) Nucleated RBC % Seg Neutrophils # Seg Neutrophils # Man Lymphocytes # (Manual) Monocytes # (Manual) Eosinophils # (Manual) PT INR Fibrinogen dRVVT Confirm Interp Factor V Activity POC ABG pH POC ABG pCO2 POC ABG pO2 Sodium Potassium Chloride Carbon Dioxide BUN Creatinine Glucose POC Glucose 150 H 164 H Lactic Acid Calcium Phosphorus Magnesium Direct Bilirubin ALT Alkaline Phosphatase Troponin T C-Reactive Protein Total Protein Albumin Triglycerides Cholesterol LDL Cholesterol Direct HDL Cholesterol Urine WBC (Auto) Urine Creatinine Urine Total Protein Vancomycin Trough Rheumatoid Factor Complement C4 Miscellaneous Test Crossmatch See Detail 10/06/16 10/06/16 10/06/16 03:50 03:50 04:53 WBC RBC 3.00 L Hgb 8.6 L Hct 25.8 L MCV MCH MCHC RDW 17.9 H Plt Count 65 L Lymph % (Auto) [place] % (Auto) Lymph # [place] # Baso # Seg Neutrophils % Seg Neuts % (Manual) 30.0 L Lymphocytes % (Manual) 5.0 L Monocytes % (Manual) Eosinophils % (Manual) Basophils % (Manual) Nucleated RBC % Seg Neutrophils # Seg Neutrophils # Man Lymphocytes # (Manual) 0.4 L Monocytes # (Manual) Eosinophils # (Manual) PT INR Fibrinogen dRVVT Confirm Interp Factor V Activity POC ABG pH 7.310 L POC ABG pCO2 49.0 H POC ABG pO2 Sodium 133 L Potassium Chloride 95.9 L Carbon Dioxide BUN 26 H Creatinine 2.0 H Glucose 116 H POC Glucose Lactic Acid Calcium 7.8 L Phosphorus Magnesium Direct Bilirubin ALT Alkaline Phosphatase Troponin T C-Reactive Protein Total Protein Albumin Triglycerides Cholesterol LDL Cholesterol Direct HDL Cholesterol Urine WBC (Auto) Urine Creatinine Urine Total Protein Vancomycin Trough Rheumatoid Factor Complement C4 Miscellaneous Test Crossmatch 10/06/16 10/06/16 10/06/16 05:23 11:52 18:34 WBC RBC Hgb Hct MCV MCH MCHC RDW Plt Count Lymph % (Auto) [place] % (Auto) Lymph # [place] # Baso # Seg Neutrophils % Seg Neuts % (Manual) Lymphocytes % (Manual) Monocytes % (Manual) Eosinophils % (Manual) Basophils % (Manual) Nucleated RBC % Seg Neutrophils # Seg Neutrophils # Man Lymphocytes # (Manual) Monocytes # (Manual) Eosinophils # (Manual) PT INR Fibrinogen dRVVT Confirm Interp Factor V Activity POC ABG pH POC ABG pCO2 POC ABG pO2 Sodium Potassium Chloride Carbon Dioxide BUN Creatinine Glucose POC Glucose 126 H 116 H 129 H Lactic Acid Calcium Phosphorus Magnesium Direct Bilirubin ALT Alkaline Phosphatase Troponin T C-Reactive Protein Total Protein Albumin Triglycerides Cholesterol LDL Cholesterol Direct HDL Cholesterol Urine WBC (Auto) Urine Creatinine Urine Total Protein Vancomycin Trough Rheumatoid Factor Complement C4 Miscellaneous Test Crossmatch 10/07/16 10/07/16 10/07/16 03:45 05:00 10:00 WBC 17.0 H RBC 2.68 L Hgb 7.3 L Hct 25.3 L MCV MCH 27 L MCHC 29 L RDW 19.6 H Plt Count 74 L Lymph % (Auto) [place] % (Auto) Lymph # [place] # Baso # Seg Neutrophils % Seg Neuts % (Manual) Lymphocytes % (Manual) 12.0 L Monocytes % (Manual) Eosinophils % (Manual) Basophils % (Manual) Nucleated RBC % 4.0 H Seg Neutrophils # Seg Neutrophils # Man 10.7 H Lymphocytes # (Manual) Monocytes # (Manual) Eosinophils # (Manual) PT INR Fibrinogen dRVVT Confirm Interp Factor V Activity POC ABG pH POC ABG pCO2 POC ABG pO2 Sodium 130 L Potassium 3.2 L Chloride 93.9 L Carbon Dioxide 20 L BUN 44 H Creatinine 2.7 H Glucose 129 H POC Glucose Lactic Acid Calcium 7.4 L Phosphorus Magnesium Direct Bilirubin ALT 6 L Alkaline Phosphatase 195 H Troponin T C-Reactive Protein Total Protein 4.9 L Albumin 1.0 L Triglycerides Cholesterol LDL Cholesterol Direct HDL Cholesterol Urine WBC (Auto) Urine Creatinine Urine Total Protein Vancomycin Trough Rheumatoid Factor Complement C4 Miscellaneous Test Flexitest 1 H Crossmatch 10/07/16 10/07/16 10/07/16 10:00 11:24 18:10 WBC RBC Hgb Hct MCV MCH MCHC RDW Plt Count Lymph % (Auto) [place] % (Auto) Lymph # [place] # Baso # Seg Neutrophils % Seg Neuts % (Manual) Lymphocytes % (Manual) Monocytes % (Manual) Eosinophils % (Manual) Basophils % (Manual) Nucleated RBC % Seg Neutrophils # Seg Neutrophils # Man Lymphocytes # (Manual) Monocytes # (Manual) Eosinophils # (Manual) PT INR Fibrinogen dRVVT Confirm Interp Factor V Activity POC ABG pH POC ABG pCO2 POC ABG pO2 Sodium Potassium Chloride Carbon Dioxide BUN Creatinine Glucose POC Glucose 116 H 130 H Lactic Acid Calcium Phosphorus Magnesium Direct Bilirubin ALT Alkaline Phosphatase Troponin T C-Reactive Protein 19.40 H Total Protein Albumin Triglycerides Cholesterol LDL Cholesterol Direct HDL Cholesterol Urine WBC (Auto) Urine Creatinine Urine Total Protein Vancomycin Trough Rheumatoid Factor Complement C4 Miscellaneous Test Crossmatch 10/07/16 10/08/16 10/08/16 18:30 00:00 04:00 WBC RBC Hgb Hct MCV MCH MCHC RDW Plt Count Lymph % (Auto) [place] % (Auto) Lymph # [place] # Baso # Seg Neutrophils % Seg Neuts % (Manual) Lymphocytes % (Manual) Monocytes % (Manual) Eosinophils % (Manual) Basophils % (Manual) Nucleated RBC % Seg Neutrophils # Seg Neutrophils # Man Lymphocytes # (Manual) Monocytes # (Manual) Eosinophils # (Manual) PT INR Fibrinogen dRVVT Confirm Interp Factor V Activity POC ABG pH POC ABG pCO2 POC ABG pO2 Sodium 132 L Potassium 3.3 L Chloride 93.6 L Carbon Dioxide 17 L BUN 59 H Creatinine 2.7 H Glucose 121 H POC Glucose 122 H Lactic Acid Calcium 7.6 L Phosphorus Magnesium Direct Bilirubin ALT Alkaline Phosphatase Troponin T C-Reactive Protein Total Protein Albumin Triglycerides Cholesterol LDL Cholesterol Direct HDL Cholesterol Urine WBC (Auto) > 182.0 H Urine Creatinine Urine Total Protein Vancomycin Trough Rheumatoid Factor Complement C4 Miscellaneous Test Crossmatch 10/08/16 10/08/16 10/08/16 04:30 05:30 11:51 WBC RBC 5.15 H Hgb 14.4 H D Hct 44.5 H D MCV MCH MCHC RDW 19.5 H Plt Count 56 L Lymph % (Auto) [place] % (Auto) Lymph # [place] # Baso # Seg Neutrophils % Seg Neuts % (Manual) 24.0 L Lymphocytes % (Manual) 8.0 L Monocytes % (Manual) Eosinophils % (Manual) Basophils % (Manual) Nucleated RBC % 9.0 H Seg Neutrophils # Seg Neutrophils # Man Lymphocytes # (Manual) 0.7 L Monocytes # (Manual) Eosinophils # (Manual) PT INR Fibrinogen dRVVT Confirm Interp Factor V Activity POC ABG pH POC ABG pCO2 POC ABG pO2 Sodium Potassium Chloride Carbon Dioxide BUN Creatinine Glucose POC Glucose 125 H 150 H Lactic Acid Calcium Phosphorus Magnesium Direct Bilirubin ALT Alkaline Phosphatase Troponin T C-Reactive Protein Total Protein Albumin Triglycerides Cholesterol LDL Cholesterol Direct HDL Cholesterol Urine WBC (Auto) Urine Creatinine Urine Total Protein Vancomycin Trough Rheumatoid Factor Complement C4 Miscellaneous Test Crossmatch 10/08/16 10/08/16 10/08/16 12:49 17:07 19:30 WBC RBC Hgb 7.1 L D Hct 22.4 L D MCV MCH MCHC RDW Plt Count Lymph % (Auto) [place] % (Auto) Lymph # [place] # Baso # Seg Neutrophils % Seg Neuts % (Manual) Lymphocytes % (Manual) Monocytes % (Manual) Eosinophils % (Manual) Basophils % (Manual) Nucleated RBC % Seg Neutrophils # Seg Neutrophils # Man Lymphocytes # (Manual) Monocytes # (Manual) Eosinophils # (Manual) PT INR Fibrinogen dRVVT Confirm Interp Factor V Activity POC ABG pH POC ABG pCO2 28.2 L POC ABG pO2 111 H Sodium Potassium Chloride Carbon Dioxide BUN Creatinine Glucose POC Glucose 145 H Lactic Acid Calcium Phosphorus Magnesium Direct Bilirubin ALT Alkaline Phosphatase Troponin T C-Reactive Protein Total Protein Albumin Triglycerides Cholesterol LDL Cholesterol Direct HDL Cholesterol Urine WBC (Auto) Urine Creatinine Urine Total Protein Vancomycin Trough Rheumatoid Factor Complement C4 Miscellaneous Test Crossmatch 10/08/16 10/09/16 10/09/16 19:30 03:45 03:45 WBC 12.6 H RBC 2.36 L Hgb 6.7 L Hct 21.1 L MCV MCH MCHC RDW 19.5 H Plt Count 75 L Lymph % (Auto) [place] % (Auto) Lymph # [place] # Baso # Seg Neutrophils % Seg Neuts % (Manual) Lymphocytes % (Manual) Monocytes % (Manual) 10.0 H Eosinophils % (Manual) Basophils % (Manual) Nucleated RBC % 3.0 H Seg Neutrophils # Seg Neutrophils # Man Lymphocytes # (Manual) Monocytes # (Manual) 1.3 H Eosinophils # (Manual) PT 18.0 H INR 1.41 H Fibrinogen dRVVT Confirm Interp Factor V Activity POC ABG pH POC ABG pCO2 POC ABG pO2 Sodium 135 L Potassium Chloride Carbon Dioxide 17 L BUN 81 H Creatinine 3.2 H Glucose 109 H POC Glucose Lactic Acid Calcium 7.4 L Phosphorus 4.60 H D Magnesium Direct Bilirubin ALT Alkaline Phosphatase Troponin T C-Reactive Protein Total Protein Albumin Triglycerides Cholesterol LDL Cholesterol Direct HDL Cholesterol Urine WBC (Auto) Urine Creatinine Urine Total Protein Vancomycin Trough Rheumatoid Factor Complement C4 Miscellaneous Test Crossmatch 10/09/16 10/09/16 10/09/16 03:45 05:14 07:20 WBC RBC Hgb Hct MCV MCH MCHC RDW Plt Count Lymph % (Auto) [place] % (Auto) Lymph # [place] # Baso # Seg Neutrophils % Seg Neuts % (Manual) Lymphocytes % (Manual) Monocytes % (Manual) Eosinophils % (Manual) Basophils % (Manual) Nucleated RBC % Seg Neutrophils # Seg Neutrophils # Man Lymphocytes # (Manual) Monocytes # (Manual) Eosinophils # (Manual) PT 19.0 H INR 1.51 H Fibrinogen dRVVT Confirm Interp Factor V Activity POC ABG pH POC ABG pCO2 POC ABG pO2 Sodium Potassium Chloride Carbon Dioxide BUN Creatinine Glucose POC Glucose 151 H Lactic Acid Calcium Phosphorus Magnesium Direct Bilirubin ALT Alkaline Phosphatase Troponin T C-Reactive Protein Total Protein Albumin Triglycerides Cholesterol LDL Cholesterol Direct HDL Cholesterol Urine WBC (Auto) Urine Creatinine Urine Total Protein Vancomycin Trough Rheumatoid Factor Complement C4 Miscellaneous Test Crossmatch See Detail 10/09/16 10/09/16 10/09/16 11:46 16:20 16:43 WBC RBC Hgb 7.2 L Hct 22.2 L MCV MCH MCHC RDW Plt Count Lymph % (Auto) [place] % (Auto) Lymph # [place] # Baso # Seg Neutrophils % Seg Neuts % (Manual) Lymphocytes % (Manual) Monocytes % (Manual) Eosinophils % (Manual) Basophils % (Manual) Nucleated RBC % Seg Neutrophils # Seg Neutrophils # Man Lymphocytes # (Manual) Monocytes # (Manual) Eosinophils # (Manual) PT INR Fibrinogen dRVVT Confirm Interp Factor V Activity POC ABG pH POC ABG pCO2 POC ABG pO2 Sodium Potassium Chloride Carbon Dioxide BUN Creatinine Glucose POC Glucose 133 H 141 H Lactic Acid Calcium Phosphorus Magnesium Direct Bilirubin ALT Alkaline Phosphatase Troponin T C-Reactive Protein Total Protein Albumin Triglycerides Cholesterol LDL Cholesterol Direct HDL Cholesterol Urine WBC (Auto) Urine Creatinine Urine Total Protein Vancomycin Trough Rheumatoid Factor Complement C4 Miscellaneous Test Crossmatch 10/10/16 10/10/16 10/10/16 05:00 05:00 11:19 WBC 18.5 H RBC 2.19 L Hgb 6.4 L Hct 19.6 L* MCV MCH MCHC RDW 19.3 H Plt Count 93 L Lymph % (Auto) [place] % (Auto) Lymph # [place] # Baso # Seg Neutrophils % Seg Neuts % (Manual) Lymphocytes % (Manual) 10.0 L Monocytes % (Manual) Eosinophils % (Manual) Basophils % (Manual) Nucleated RBC % 4.0 H Seg Neutrophils # Seg Neutrophils # Man 11.3 H Lymphocytes # (Manual) Monocytes # (Manual) Eosinophils # (Manual) PT INR Fibrinogen dRVVT Confirm Interp Factor V Activity POC ABG pH POC ABG pCO2 POC ABG pO2 Sodium Potassium 5.7 H D Chloride Carbon Dioxide 16 L BUN 94 H Creatinine 3.1 H Glucose 131 H POC Glucose 153 H Lactic Acid Calcium 8.2 L Phosphorus 5.10 H Magnesium 2.40 H Direct Bilirubin 0.3 H ALT < 5 L Alkaline Phosphatase 319 H Troponin T C-Reactive Protein Total Protein 5.1 L Albumin 1.0 L Triglycerides Cholesterol LDL Cholesterol Direct HDL Cholesterol Urine WBC (Auto) Urine Creatinine Urine Total Protein Vancomycin Trough Rheumatoid Factor Complement C4 Miscellaneous Test Crossmatch 10/10/16 10/10/16 10/11/16 17:50 23:30 04:15 WBC RBC Hgb Hct MCV MCH MCHC RDW Plt Count Lymph % (Auto) [place] % (Auto) Lymph # [place] # Baso # Seg Neutrophils % Seg Neuts % (Manual) Lymphocytes % (Manual) Monocytes % (Manual) Eosinophils % (Manual) Basophils % (Manual) Nucleated RBC % Seg Neutrophils # Seg Neutrophils # Man Lymphocytes # (Manual) Monocytes # (Manual) Eosinophils # (Manual) PT INR Fibrinogen dRVVT Confirm Interp Factor V Activity POC ABG pH POC ABG pCO2 POC ABG pO2 Sodium Potassium Chloride 96.4 L Carbon Dioxide 21 L BUN 57 H Creatinine 2.1 H Glucose 151 H POC Glucose 146 H 141 H Lactic Acid Calcium 8.3 L Phosphorus Magnesium Direct Bilirubin ALT Alkaline Phosphatase Troponin T C-Reactive Protein Total Protein Albumin Triglycerides Cholesterol LDL Cholesterol Direct HDL Cholesterol Urine WBC (Auto) Urine Creatinine Urine Total Protein Vancomycin Trough Rheumatoid Factor Complement C4 Miscellaneous Test Crossmatch 10/11/16 10/11/16 10/11/16 04:15 04:15 05:30 WBC 28.3 H RBC 3.12 L Hgb 9.3 L Hct 28.7 L D MCV MCH MCHC RDW 17.7 H Plt Count 128 L Lymph % (Auto) [place] % (Auto) Lymph # [place] # Baso # Seg Neutrophils % Seg Neuts % (Manual) Lymphocytes % (Manual) Monocytes % (Manual) Eosinophils % (Manual) Basophils % (Manual) Nucleated RBC % Seg Neutrophils # Seg Neutrophils # Man Lymphocytes # (Manual) Monocytes # (Manual) Eosinophils # (Manual) PT INR Fibrinogen dRVVT Confirm Interp Factor V Activity POC ABG pH POC ABG pCO2 POC ABG pO2 Sodium Potassium Chloride Carbon Dioxide BUN Creatinine Glucose POC Glucose 167 H Lactic Acid Calcium Phosphorus Magnesium Direct Bilirubin ALT Alkaline Phosphatase Troponin T C-Reactive Protein 15.80 H Total Protein Albumin Triglycerides Cholesterol LDL Cholesterol Direct HDL Cholesterol Urine WBC (Auto) Urine Creatinine Urine Total Protein Vancomycin Trough Rheumatoid Factor Complement C4 Miscellaneous Test Crossmatch 10/11/16 10/11/16 10/11/16 11:40 15:49 23:57 WBC RBC Hgb Hct MCV MCH MCHC RDW Plt Count Lymph % (Auto) [place] % (Auto) Lymph # [place] # Baso # Seg Neutrophils % Seg Neuts % (Manual) Lymphocytes % (Manual) Monocytes % (Manual) Eosinophils % (Manual) Basophils % (Manual) Nucleated RBC % Seg Neutrophils # Seg Neutrophils # Man Lymphocytes # (Manual) Monocytes # (Manual) Eosinophils # (Manual) PT INR Fibrinogen dRVVT Confirm Interp Factor V Activity POC ABG pH POC ABG pCO2 POC ABG pO2 Sodium Potassium Chloride Carbon Dioxide BUN Creatinine Glucose POC Glucose 139 H 168 H 161 H Lactic Acid Calcium Phosphorus Magnesium Direct Bilirubin ALT Alkaline Phosphatase Troponin T C-Reactive Protein Total Protein Albumin Triglycerides Cholesterol LDL Cholesterol Direct HDL Cholesterol Urine WBC (Auto) Urine Creatinine Urine Total Protein Vancomycin Trough Rheumatoid Factor Complement C4 Miscellaneous Test Crossmatch 10/12/16 10/12/16 10/12/16 04:40 04:40 05:44 WBC 22.5 H RBC 2.88 L Hgb 8.8 L Hct 26.8 L MCV MCH MCHC RDW 17.8 H Plt Count Lymph % (Auto) [place] % (Auto) Lymph # [place] # Baso # Seg Neutrophils % Seg Neuts % (Manual) Lymphocytes % (Manual) Monocytes % (Manual) Eosinophils % (Manual) Basophils % (Manual) Nucleated RBC % Seg Neutrophils # Seg Neutrophils # Man Lymphocytes # (Manual) Monocytes # (Manual) Eosinophils # (Manual) PT INR Fibrinogen dRVVT Confirm Interp Factor V Activity POC ABG pH POC ABG pCO2 POC ABG pO2 Sodium 134 L Potassium Chloride 93.0 L Carbon Dioxide BUN 74 H Creatinine 2.5 H Glucose 137 H POC Glucose 158 H Lactic Acid Calcium 8.2 L Phosphorus Magnesium Direct Bilirubin ALT Alkaline Phosphatase Troponin T C-Reactive Protein Total Protein Albumin Triglycerides Cholesterol LDL Cholesterol Direct HDL Cholesterol Urine WBC (Auto) Urine Creatinine Urine Total Protein Vancomycin Trough Rheumatoid Factor Complement C4 Miscellaneous Test Crossmatch 10/12/16 10/12/16 10/12/16 12:27 18:18 23:46 WBC RBC Hgb Hct MCV MCH MCHC RDW Plt Count Lymph % (Auto) [place] % (Auto) Lymph # [place] # Baso # Seg Neutrophils % Seg Neuts % (Manual) Lymphocytes % (Manual) Monocytes % (Manual) Eosinophils % (Manual) Basophils % (Manual) Nucleated RBC % Seg Neutrophils # Seg Neutrophils # Man Lymphocytes # (Manual) Monocytes # (Manual) Eosinophils # (Manual) PT INR Fibrinogen dRVVT Confirm Interp Factor V Activity POC ABG pH POC ABG pCO2 POC ABG pO2 Sodium Potassium Chloride Carbon Dioxide BUN Creatinine Glucose POC Glucose 153 H 140 H 150 H Lactic Acid Calcium Phosphorus Magnesium Direct Bilirubin ALT Alkaline Phosphatase Troponin T C-Reactive Protein Total Protein Albumin Triglycerides Cholesterol LDL Cholesterol Direct HDL Cholesterol Urine WBC (Auto) Urine Creatinine Urine Total Protein Vancomycin Trough Rheumatoid Factor Complement C4 Miscellaneous Test Crossmatch 10/13/16 10/13/16 10/13/16 06:22 09:20 12:29 WBC RBC Hgb Hct MCV MCH MCHC RDW Plt Count Lymph % (Auto) [place] % (Auto) Lymph # [place] # Baso # Seg Neutrophils % Seg Neuts % (Manual) Lymphocytes % (Manual) Monocytes % (Manual) Eosinophils % (Manual) Basophils % (Manual) Nucleated RBC % Seg Neutrophils # Seg Neutrophils # Man Lymphocytes # (Manual) Monocytes # (Manual) Eosinophils # (Manual) PT INR Fibrinogen dRVVT Confirm Interp Factor V Activity POC ABG pH POC ABG pCO2 POC ABG pO2 Sodium Potassium Chloride Carbon Dioxide BUN Creatinine Glucose POC Glucose 165 H 193 H Lactic Acid Calcium Phosphorus Magnesium Direct Bilirubin ALT Alkaline Phosphatase Troponin T C-Reactive Protein Total Protein Albumin Triglycerides Cholesterol LDL Cholesterol Direct HDL Cholesterol Urine WBC (Auto) Urine Creatinine Urine Total Protein Vancomycin Trough Rheumatoid Factor Complement C4 Miscellaneous Test Flexitest 1 H Crossmatch 10/13/16 10/13/16 10/13/16 18:09 Unknown Unknown WBC 23.4 H RBC 2.83 L Hgb 8.7 L Hct 26.1 L MCV MCH MCHC RDW 18.1 H Plt Count Lymph % (Auto) [place] % (Auto) Lymph # [place] # Baso # Seg Neutrophils % Seg Neuts % (Manual) Lymphocytes % (Manual) Monocytes % (Manual) Eosinophils % (Manual) Basophils % (Manual) Nucleated RBC % Seg Neutrophils # Seg Neutrophils # Man Lymphocytes # (Manual) Monocytes # (Manual) Eosinophils # (Manual) PT INR Fibrinogen dRVVT Confirm Interp Factor V Activity POC ABG pH POC ABG pCO2 POC ABG pO2 Sodium Potassium Chloride 95.8 L Carbon Dioxide BUN 82 H Creatinine 2.6 H Glucose 152 H POC Glucose 166 H Lactic Acid Calcium Phosphorus Magnesium Direct Bilirubin ALT Alkaline Phosphatase Troponin T C-Reactive Protein Total Protein Albumin Triglycerides Cholesterol LDL Cholesterol Direct HDL Cholesterol Urine WBC (Auto) Urine Creatinine Urine Total Protein Vancomycin Trough Rheumatoid Factor Complement C4 Miscellaneous Test Crossmatch 10/14/16 10/14/16 10/14/16 05:38 06:35 08:10 WBC 20.7 H RBC 2.81 L Hgb 8.4 L Hct 27.2 L MCV MCH MCHC RDW 19.4 H Plt Count Lymph % (Auto) [place] % (Auto) Lymph # [place] # Baso # Seg Neutrophils % Seg Neuts % (Manual) Lymphocytes % (Manual) Monocytes % (Manual) Eosinophils % (Manual) Basophils % (Manual) Nucleated RBC % Seg Neutrophils # Seg Neutrophils # Man Lymphocytes # (Manual) Monocytes # (Manual) Eosinophils # (Manual) PT INR Fibrinogen dRVVT Confirm Interp Factor V Activity POC ABG pH POC ABG pCO2 POC ABG pO2 Sodium Potassium Chloride Carbon Dioxide BUN 58 H Creatinine 1.9 H Glucose 169 H POC Glucose 195 H Lactic Acid Calcium Phosphorus Magnesium Direct Bilirubin ALT Alkaline Phosphatase Troponin T C-Reactive Protein Total Protein Albumin Triglycerides Cholesterol LDL Cholesterol Direct HDL Cholesterol Urine WBC (Auto) Urine Creatinine Urine Total Protein Vancomycin Trough Rheumatoid Factor Complement C4 Miscellaneous Test Crossmatch 10/14/16 10/14/16 10/14/16 11:44 17:13 23:28 WBC RBC Hgb Hct MCV MCH MCHC RDW Plt Count Lymph % (Auto) [place] % (Auto) Lymph # [place] # Baso # Seg Neutrophils % Seg Neuts % (Manual) Lymphocytes % (Manual) Monocytes % (Manual) Eosinophils % (Manual) Basophils % (Manual) Nucleated RBC % Seg Neutrophils # Seg Neutrophils # Man Lymphocytes # (Manual) Monocytes # (Manual) Eosinophils # (Manual) PT INR Fibrinogen dRVVT Confirm Interp Factor V Activity POC ABG pH POC ABG pCO2 POC ABG pO2 Sodium Potassium Chloride Carbon Dioxide BUN Creatinine Glucose POC Glucose 174 H 121 H 151 H Lactic Acid Calcium Phosphorus Magnesium Direct Bilirubin ALT Alkaline Phosphatase Troponin T C-Reactive Protein Total Protein Albumin Triglycerides Cholesterol LDL Cholesterol Direct HDL Cholesterol Urine WBC (Auto) Urine Creatinine Urine Total Protein Vancomycin Trough Rheumatoid Factor Complement C4 Miscellaneous Test Crossmatch 10/15/16 10/15/16 10/15/16 05:06 12:26 17:48 WBC RBC Hgb Hct MCV MCH MCHC RDW Plt Count Lymph % (Auto) [place] % (Auto) Lymph # [place] # Baso # Seg Neutrophils % Seg Neuts % (Manual) Lymphocytes % (Manual) Monocytes % (Manual) Eosinophils % (Manual) Basophils % (Manual) Nucleated RBC % Seg Neutrophils # Seg Neutrophils # Man Lymphocytes # (Manual) Monocytes # (Manual) Eosinophils # (Manual) PT INR Fibrinogen dRVVT Confirm Interp Factor V Activity POC ABG pH POC ABG pCO2 POC ABG pO2 Sodium Potassium Chloride Carbon Dioxide BUN Creatinine Glucose POC Glucose 151 H 149 H 153 H Lactic Acid Calcium Phosphorus Magnesium Direct Bilirubin ALT Alkaline Phosphatase Troponin T C-Reactive Protein Total Protein Albumin Triglycerides Cholesterol LDL Cholesterol Direct HDL Cholesterol Urine WBC (Auto) Urine Creatinine Urine Total Protein Vancomycin Trough Rheumatoid Factor Complement C4 Miscellaneous Test Crossmatch 10/15/16 10/15/16 10/16/16 Unknown Unknown 00:02 WBC 23.4 H RBC 2.78 L Hgb 8.5 L Hct 25.7 L MCV MCH MCHC RDW 18.7 H Plt Count Lymph % (Auto) [place] % (Auto) Lymph # [place] # Baso # Seg Neutrophils % Seg Neuts % (Manual) Lymphocytes % (Manual) Monocytes % (Manual) Eosinophils % (Manual) Basophils % (Manual) Nucleated RBC % Seg Neutrophils # Seg Neutrophils # Man Lymphocytes # (Manual) Monocytes # (Manual) Eosinophils # (Manual) PT INR Fibrinogen dRVVT Confirm Interp Factor V Activity POC ABG pH POC ABG pCO2 POC ABG pO2 Sodium Potassium Chloride Carbon Dioxide BUN 73 H Creatinine 2.3 H Glucose 120 H POC Glucose 137 H Lactic Acid Calcium Phosphorus Magnesium Direct Bilirubin ALT Alkaline Phosphatase Troponin T C-Reactive Protein Total Protein Albumin Triglycerides Cholesterol LDL Cholesterol Direct HDL Cholesterol Urine WBC (Auto) Urine Creatinine Urine Total Protein Vancomycin Trough Rheumatoid Factor Complement C4 Miscellaneous Test Crossmatch 10/16/16 10/16/16 10/16/16 05:44 06:25 06:25 WBC 22.5 H RBC 2.76 L Hgb 8.3 L Hct 25.2 L MCV MCH MCHC RDW 18.3 H Plt Count Lymph % (Auto) [place] % (Auto) Lymph # [place] # Baso # Seg Neutrophils % Seg Neuts % (Manual) Lymphocytes % (Manual) Monocytes % (Manual) Eosinophils % (Manual) Basophils % (Manual) Nucleated RBC % Seg Neutrophils # Seg Neutrophils # Man Lymphocytes # (Manual) Monocytes # (Manual) Eosinophils # (Manual) PT INR Fibrinogen dRVVT Confirm Interp Factor V Activity POC ABG pH POC ABG pCO2 POC ABG pO2 Sodium Potassium Chloride Carbon Dioxide BUN 92 H Creatinine 3.0 H Glucose 138 H POC Glucose 110 H Lactic Acid Calcium Phosphorus Magnesium Direct Bilirubin ALT Alkaline Phosphatase Troponin T C-Reactive Protein Total Protein Albumin Triglycerides Cholesterol LDL Cholesterol Direct HDL Cholesterol Urine WBC (Auto) Urine Creatinine Urine Total Protein Vancomycin Trough Rheumatoid Factor Complement C4 Miscellaneous Test Crossmatch 10/16/16 10/16/16 10/16/16 11:27 11:48 17:36 WBC RBC Hgb Hct MCV MCH MCHC RDW Plt Count Lymph % (Auto) [place] % (Auto) Lymph # [place] # Baso # Seg Neutrophils % Seg Neuts % (Manual) Lymphocytes % (Manual) Monocytes % (Manual) Eosinophils % (Manual) Basophils % (Manual) Nucleated RBC % Seg Neutrophils # Seg Neutrophils # Man Lymphocytes # (Manual) Monocytes # (Manual) Eosinophils # (Manual) PT INR Fibrinogen dRVVT Confirm Interp Factor V Activity POC ABG pH 7.582 H POC ABG pCO2 27.4 L POC ABG pO2 110 H Sodium Potassium Chloride Carbon Dioxide BUN Creatinine Glucose POC Glucose 121 H 133 H Lactic Acid Calcium Phosphorus Magnesium Direct Bilirubin ALT Alkaline Phosphatase Troponin T C-Reactive Protein Total Protein Albumin Triglycerides Cholesterol LDL Cholesterol Direct HDL Cholesterol Urine WBC (Auto) Urine Creatinine Urine Total Protein Vancomycin Trough Rheumatoid Factor Complement C4 Miscellaneous Test Crossmatch 10/16/16 10/17/16 10/17/16 20:48 04:24 04:24 WBC 21.4 H RBC 2.72 L Hgb 8.0 L Hct 25.2 L MCV MCH MCHC RDW 18.0 H Plt Count Lymph % (Auto) [place] % (Auto) Lymph # [place] # Baso # Seg Neutrophils % Seg Neuts % (Manual) Lymphocytes % (Manual) Monocytes % (Manual) Eosinophils % (Manual) Basophils % (Manual) Nucleated RBC % Seg Neutrophils # Seg Neutrophils # Man Lymphocytes # (Manual) Monocytes # (Manual) Eosinophils # (Manual) PT INR Fibrinogen dRVVT Confirm Interp Factor V Activity POC ABG pH 7.561 H POC ABG pCO2 24.4 L POC ABG pO2 77 L Sodium 148 H Potassium Chloride Carbon Dioxide BUN 104 H Creatinine 3.0 H Glucose 149 H POC Glucose Lactic Acid Calcium Phosphorus Magnesium Direct Bilirubin ALT Alkaline Phosphatase 138 H Troponin T C-Reactive Protein Total Protein 6.2 L Albumin 1.5 L Triglycerides Cholesterol LDL Cholesterol Direct HDL Cholesterol Urine WBC (Auto) Urine Creatinine Urine Total Protein Vancomycin Trough Rheumatoid Factor Complement C4 Miscellaneous Test Crossmatch 10/17/16 10/17/16 10/17/16 06:02 12:17 17:14 WBC RBC Hgb Hct MCV MCH MCHC RDW Plt Count Lymph % (Auto) [place] % (Auto) Lymph # [place] # Baso # Seg Neutrophils % Seg Neuts % (Manual) Lymphocytes % (Manual) Monocytes % (Manual) Eosinophils % (Manual) Basophils % (Manual) Nucleated RBC % Seg Neutrophils # Seg Neutrophils # Man Lymphocytes # (Manual) Monocytes # (Manual) Eosinophils # (Manual) PT INR Fibrinogen dRVVT Confirm Interp Factor V Activity POC ABG pH POC ABG pCO2 POC ABG pO2 Sodium Potassium Chloride Carbon Dioxide BUN Creatinine Glucose POC Glucose 170 H 167 H 126 H Lactic Acid Calcium Phosphorus Magnesium Direct Bilirubin ALT Alkaline Phosphatase Troponin T C-Reactive Protein Total Protein Albumin Triglycerides Cholesterol LDL Cholesterol Direct HDL Cholesterol Urine WBC (Auto) Urine Creatinine Urine Total Protein Vancomycin Trough Rheumatoid Factor Complement C4 Miscellaneous Test Crossmatch 10/17/16 10/18/16 10/18/16 23:17 04:00 04:00 WBC 20.7 H RBC 2.47 L Hgb 7.4 L Hct 22.9 L MCV MCH MCHC RDW 17.5 H Plt Count Lymph % (Auto) [place] % (Auto) Lymph # [place] # Baso # Seg Neutrophils % Seg Neuts % (Manual) Lymphocytes % (Manual) Monocytes % (Manual) Eosinophils % (Manual) Basophils % (Manual) Nucleated RBC % Seg Neutrophils # Seg Neutrophils # Man Lymphocytes # (Manual) Monocytes # (Manual) Eosinophils # (Manual) PT INR Fibrinogen dRVVT Confirm Interp Factor V Activity POC ABG pH POC ABG pCO2 POC ABG pO2 Sodium 149 H Potassium Chloride 107.9 H Carbon Dioxide 20 L BUN 117 H Creatinine 3.2 H Glucose 119 H POC Glucose 121 H Lactic Acid Calcium Phosphorus Magnesium Direct Bilirubin ALT Alkaline Phosphatase Troponin T C-Reactive Protein Total Protein Albumin Triglycerides Cholesterol LDL Cholesterol Direct HDL Cholesterol Urine WBC (Auto) Urine Creatinine Urine Total Protein Vancomycin Trough Rheumatoid Factor Complement C4 Miscellaneous Test Crossmatch 10/18/16 10/18/16 10/18/16 05:23 10:46 17:30 WBC RBC Hgb Hct MCV MCH MCHC RDW Plt Count Lymph % (Auto) [place] % (Auto) Lymph # [place] # Baso # Seg Neutrophils % Seg Neuts % (Manual) Lymphocytes % (Manual) Monocytes % (Manual) Eosinophils % (Manual) Basophils % (Manual) Nucleated RBC % Seg Neutrophils # Seg Neutrophils # Man Lymphocytes # (Manual) Monocytes # (Manual) Eosinophils # (Manual) PT INR Fibrinogen dRVVT Confirm Interp Factor V Activity POC ABG pH POC ABG pCO2 POC ABG pO2 Sodium Potassium Chloride Carbon Dioxide BUN Creatinine Glucose POC Glucose 119 H 155 H 124 H Lactic Acid Calcium Phosphorus Magnesium Direct Bilirubin ALT Alkaline Phosphatase Troponin T C-Reactive Protein Total Protein Albumin Triglycerides Cholesterol LDL Cholesterol Direct HDL Cholesterol Urine WBC (Auto) Urine Creatinine Urine Total Protein Vancomycin Trough Rheumatoid Factor Complement C4 Miscellaneous Test Crossmatch 10/19/16 10/19/16 10/19/16 04:00 04:00 05:25 WBC 17.4 H RBC 2.54 L Hgb 7.7 L Hct 23.6 L MCV MCH MCHC RDW 17.3 H Plt Count Lymph % (Auto) [place] % (Auto) Lymph # [place] # Baso # Seg Neutrophils % Seg Neuts % (Manual) Lymphocytes % (Manual) Monocytes % (Manual) Eosinophils % (Manual) Basophils % (Manual) Nucleated RBC % Seg Neutrophils # Seg Neutrophils # Man Lymphocytes # (Manual) Monocytes # (Manual) Eosinophils # (Manual) PT INR Fibrinogen dRVVT Confirm Interp Factor V Activity POC ABG pH POC ABG pCO2 POC ABG pO2 Sodium Potassium Chloride Carbon Dioxide BUN 72 H Creatinine 2.1 H Glucose 116 H POC Glucose 119 H Lactic Acid Calcium Phosphorus Magnesium Direct Bilirubin ALT Alkaline Phosphatase Troponin T C-Reactive Protein Total Protein Albumin Triglycerides Cholesterol LDL Cholesterol Direct HDL Cholesterol Urine WBC (Auto) Urine Creatinine Urine Total Protein Vancomycin Trough Rheumatoid Factor Complement C4 Miscellaneous Test Crossmatch 10/19/16 10/19/16 10/20/16 11:46 23:59 06:00 WBC RBC Hgb Hct MCV MCH MCHC RDW Plt Count Lymph % (Auto) [place] % (Auto) Lymph # [place] # Baso # Seg Neutrophils % Seg Neuts % (Manual) Lymphocytes % (Manual) Monocytes % (Manual) Eosinophils % (Manual) Basophils % (Manual) Nucleated RBC % Seg Neutrophils # Seg Neutrophils # Man Lymphocytes # (Manual) Monocytes # (Manual) Eosinophils # (Manual) PT INR Fibrinogen dRVVT Confirm Interp Factor V Activity POC ABG pH POC ABG pCO2 POC ABG pO2 Sodium Potassium Chloride Carbon Dioxide 17 L BUN 94 H Creatinine 2.7 H Glucose POC Glucose 116 H 117 H Lactic Acid Calcium Phosphorus Magnesium Direct Bilirubin ALT Alkaline Phosphatase Troponin T C-Reactive Protein Total Protein Albumin Triglycerides Cholesterol LDL Cholesterol Direct HDL Cholesterol Urine WBC (Auto) Urine Creatinine Urine Total Protein Vancomycin Trough Rheumatoid Factor Complement C4 Miscellaneous Test Crossmatch 10/20/16 10/20/16 10/20/16 06:00 11:49 16:00 WBC 19.7 H RBC 2.51 L Hgb 7.7 L Hct 23.5 L MCV MCH MCHC RDW 17.5 H Plt Count Lymph % (Auto) [place] % (Auto) Lymph # [place] # Baso # Seg Neutrophils % Seg Neuts % (Manual) Lymphocytes % (Manual) Monocytes % (Manual) Eosinophils % (Manual) Basophils % (Manual) Nucleated RBC % Seg Neutrophils # Seg Neutrophils # Man Lymphocytes # (Manual) Monocytes # (Manual) Eosinophils # (Manual) PT INR Fibrinogen dRVVT Confirm Interp Factor V Activity POC ABG pH POC ABG pCO2 POC ABG pO2 Sodium Potassium Chloride Carbon Dioxide BUN Creatinine Glucose POC Glucose 117 H Lactic Acid Calcium Phosphorus Magnesium Direct Bilirubin ALT Alkaline Phosphatase Troponin T C-Reactive Protein Total Protein Albumin Triglycerides Cholesterol LDL Cholesterol Direct HDL Cholesterol Urine WBC (Auto) Urine Creatinine Urine Total Protein Vancomycin Trough Rheumatoid Factor Complement C4 Miscellaneous Test Flexitest 1 H Crossmatch 10/20/16 10/20/16 10/21/16 18:36 23:39 04:00 WBC RBC Hgb Hct MCV MCH MCHC RDW Plt Count Lymph % (Auto) [place] % (Auto) Lymph # [place] # Baso # Seg Neutrophils % Seg Neuts % (Manual) Lymphocytes % (Manual) Monocytes % (Manual) Eosinophils % (Manual) Basophils % (Manual) Nucleated RBC % Seg Neutrophils # Seg Neutrophils # Man Lymphocytes # (Manual) Monocytes # (Manual) Eosinophils # (Manual) PT INR Fibrinogen dRVVT Confirm Interp Factor V Activity POC ABG pH POC ABG pCO2 POC ABG pO2 Sodium Potassium 5.4 H D Chloride Carbon Dioxide 15 L BUN 110 H Creatinine 3.0 H Glucose POC Glucose 127 H 114 H Lactic Acid Calcium Phosphorus Magnesium Direct Bilirubin ALT Alkaline Phosphatase Troponin T C-Reactive Protein Total Protein Albumin Triglycerides Cholesterol LDL Cholesterol Direct HDL Cholesterol Urine WBC (Auto) Urine Creatinine Urine Total Protein Vancomycin Trough Rheumatoid Factor Complement C4 Miscellaneous Test Crossmatch 10/21/16 10/21/16 10/22/16 05:54 23:46 05:18 WBC RBC Hgb Hct MCV MCH MCHC RDW Plt Count Lymph % (Auto) [place] % (Auto) Lymph # [place] # Baso # Seg Neutrophils % Seg Neuts % (Manual) Lymphocytes % (Manual) Monocytes % (Manual) Eosinophils % (Manual) Basophils % (Manual) Nucleated RBC % Seg Neutrophils # Seg Neutrophils # Man Lymphocytes # (Manual) Monocytes # (Manual) Eosinophils # (Manual) PT INR Fibrinogen dRVVT Confirm Interp Factor V Activity POC ABG pH POC ABG pCO2 POC ABG pO2 Sodium Potassium Chloride Carbon Dioxide BUN Creatinine Glucose POC Glucose 119 H 108 H 109 H Lactic Acid Calcium Phosphorus Magnesium Direct Bilirubin ALT Alkaline Phosphatase Troponin T C-Reactive Protein Total Protein Albumin Triglycerides Cholesterol LDL Cholesterol Direct HDL Cholesterol Urine WBC (Auto) Urine Creatinine Urine Total Protein Vancomycin Trough Rheumatoid Factor Complement C4 Miscellaneous Test Crossmatch 10/22/16 10/22/16 10/22/16 06:40 06:40 06:40 WBC 14.0 H RBC 2.03 L Hgb 7.0 L Hct 20.5 L MCV 98 H MCH 34 H MCHC 35 H RDW 17.8 H Plt Count Lymph % (Auto) [place] % (Auto) 9.9 H Lymph # [place] # 1.4 H Baso # 0.2 H Seg Neutrophils % 72.0 H Seg Neuts % (Manual) Lymphocytes % (Manual) Monocytes % (Manual) Eosinophils % (Manual) Basophils % (Manual) Nucleated RBC % Seg Neutrophils # 10.0 H Seg Neutrophils # Man Lymphocytes # (Manual) Monocytes # (Manual) Eosinophils # (Manual) PT INR Fibrinogen dRVVT Confirm Interp Factor V Activity POC ABG pH POC ABG pCO2 POC ABG pO2 Sodium 130 L D Potassium Chloride 92.4 L Carbon Dioxide 20 L BUN 50 H Creatinine 1.6 H Glucose 589 H* POC Glucose Lactic Acid Calcium 7.8 L D Phosphorus Magnesium 1.60 L Direct Bilirubin ALT Alkaline Phosphatase Troponin T C-Reactive Protein Total Protein Albumin Triglycerides Cholesterol LDL Cholesterol Direct HDL Cholesterol Urine WBC (Auto) Urine Creatinine Urine Total Protein Vancomycin Trough Rheumatoid Factor Complement C4 Miscellaneous Test Crossmatch 10/22/16 10/22/16 10/22/16 11:39 16:44 23:36 WBC RBC Hgb Hct MCV MCH MCHC RDW Plt Count Lymph % (Auto) [place] % (Auto) Lymph # [place] # Baso # Seg Neutrophils % Seg Neuts % (Manual) Lymphocytes % (Manual) Monocytes % (Manual) Eosinophils % (Manual) Basophils % (Manual) Nucleated RBC % Seg Neutrophils # Seg Neutrophils # Man Lymphocytes # (Manual) Monocytes # (Manual) Eosinophils # (Manual) PT INR Fibrinogen dRVVT Confirm Interp Factor V Activity POC ABG pH POC ABG pCO2 POC ABG pO2 Sodium Potassium Chloride Carbon Dioxide BUN Creatinine Glucose POC Glucose 142 H 163 H 123 H Lactic Acid Calcium Phosphorus Magnesium Direct Bilirubin ALT Alkaline Phosphatase Troponin T C-Reactive Protein Total Protein Albumin Triglycerides Cholesterol LDL Cholesterol Direct HDL Cholesterol Urine WBC (Auto) Urine Creatinine Urine Total Protein Vancomycin Trough Rheumatoid Factor Complement C4 Miscellaneous Test Crossmatch 10/23/16 10/23/16 10/23/16 04:58 06:00 12:12 WBC RBC Hgb Hct MCV MCH MCHC RDW Plt Count Lymph % (Auto) [place] % (Auto) Lymph # [place] # Baso # Seg Neutrophils % Seg Neuts % (Manual) Lymphocytes % (Manual) Monocytes % (Manual) Eosinophils % (Manual) Basophils % (Manual) Nucleated RBC % Seg Neutrophils # Seg Neutrophils # Man Lymphocytes # (Manual) Monocytes # (Manual) Eosinophils # (Manual) PT INR Fibrinogen dRVVT Confirm Interp Factor V Activity POC ABG pH POC ABG pCO2 POC ABG pO2 Sodium 133 L Potassium 3.5 L Chloride 96.1 L Carbon Dioxide 18 L BUN 76 H Creatinine 2.1 H Glucose POC Glucose 133 H 138 H Lactic Acid Calcium 8.3 L Phosphorus Magnesium Direct Bilirubin ALT Alkaline Phosphatase Troponin T C-Reactive Protein Total Protein Albumin Triglycerides Cholesterol LDL Cholesterol Direct HDL Cholesterol Urine WBC (Auto) Urine Creatinine Urine Total Protein Vancomycin Trough Rheumatoid Factor Complement C4 Miscellaneous Test Crossmatch 10/23/16 10/23/16 10/24/16 16:53 23:37 04:00 WBC RBC Hgb Hct MCV MCH MCHC RDW Plt Count Lymph % (Auto) [place] % (Auto) Lymph # [place] # Baso # Seg Neutrophils % Seg Neuts % (Manual) Lymphocytes % (Manual) Monocytes % (Manual) Eosinophils % (Manual) Basophils % (Manual) Nucleated RBC % Seg Neutrophils # Seg Neutrophils # Man Lymphocytes # (Manual) Monocytes # (Manual) Eosinophils # (Manual) PT INR Fibrinogen dRVVT Confirm Interp Factor V Activity POC ABG pH POC ABG pCO2 POC ABG pO2 Sodium 131 L Potassium Chloride 94.5 L Carbon Dioxide 19 L BUN 97 H Creatinine 2.6 H Glucose 110 H POC Glucose 125 H 123 H Lactic Acid Calcium 8.3 L Phosphorus Magnesium Direct Bilirubin ALT Alkaline Phosphatase Troponin T C-Reactive Protein Total Protein Albumin Triglycerides Cholesterol LDL Cholesterol Direct HDL Cholesterol Urine WBC (Auto) Urine Creatinine Urine Total Protein Vancomycin Trough Rheumatoid Factor Complement C4 Miscellaneous Test Crossmatch 10/24/16 10/24/16 10/24/16 07:49 11:39 17:52 WBC RBC Hgb 6.0 L Hct 19.7 L* MCV MCH MCHC RDW Plt Count Lymph % (Auto) [place] % (Auto) Lymph # [place] # Baso # Seg Neutrophils % Seg Neuts % (Manual) Lymphocytes % (Manual) Monocytes % (Manual) Eosinophils % (Manual) Basophils % (Manual) Nucleated RBC % Seg Neutrophils # Seg Neutrophils # Man Lymphocytes # (Manual) Monocytes # (Manual) Eosinophils # (Manual) PT INR Fibrinogen dRVVT Confirm Interp Factor V Activity POC ABG pH POC ABG pCO2 POC ABG pO2 Sodium Potassium Chloride Carbon Dioxide BUN Creatinine Glucose POC Glucose 106 H 158 H Lactic Acid Calcium Phosphorus Magnesium Direct Bilirubin ALT Alkaline Phosphatase Troponin T C-Reactive Protein Total Protein Albumin Triglycerides Cholesterol LDL Cholesterol Direct HDL Cholesterol Urine WBC (Auto) Urine Creatinine Urine Total Protein Vancomycin Trough Rheumatoid Factor Complement C4 Miscellaneous Test Crossmatch 10/24/16 10/24/16 10/24/16 20:00 22:27 Unknown WBC RBC Hgb 9.4 L D Hct 27.5 L D MCV MCH MCHC RDW Plt Count Lymph % (Auto) [place] % (Auto) Lymph # [place] # Baso # Seg Neutrophils % Seg Neuts % (Manual) Lymphocytes % (Manual) Monocytes % (Manual) Eosinophils % (Manual) Basophils % (Manual) Nucleated RBC % Seg Neutrophils # Seg Neutrophils # Man Lymphocytes # (Manual) Monocytes # (Manual) Eosinophils # (Manual) PT INR Fibrinogen dRVVT Confirm Interp Factor V Activity POC ABG pH POC ABG pCO2 POC ABG pO2 Sodium Potassium Chloride Carbon Dioxide BUN Creatinine Glucose POC Glucose 125 H Lactic Acid Calcium Phosphorus Magnesium Direct Bilirubin ALT Alkaline Phosphatase Troponin T C-Reactive Protein Total Protein Albumin Triglycerides Cholesterol LDL Cholesterol Direct HDL Cholesterol Urine WBC (Auto) Urine Creatinine Urine Total Protein Vancomycin Trough Rheumatoid Factor Complement C4 Miscellaneous Test Crossmatch See Detail 10/25/16 10/25/16 10/25/16 04:00 04:00 04:00 WBC 14.2 H RBC 2.98 L Hgb 9.0 L Hct 26.2 L MCV MCH MCHC RDW 16.6 H Plt Count Lymph % (Auto) [place] % (Auto) 10.7 H Lymph # [place] # 1.5 H Baso # Seg Neutrophils % 73.6 H Seg Neuts % (Manual) Lymphocytes % (Manual) Monocytes % (Manual) Eosinophils % (Manual) Basophils % (Manual) Nucleated RBC % Seg Neutrophils # 10.5 H Seg Neutrophils # Man Lymphocytes # (Manual) Monocytes # (Manual) Eosinophils # (Manual) PT INR Fibrinogen dRVVT Confirm Interp Factor V Activity POC ABG pH POC ABG pCO2 POC ABG pO2 Sodium 132 L Potassium Chloride 94.7 L Carbon Dioxide BUN 51 H Creatinine 1.6 H Glucose 130 H POC Glucose Lactic Acid Calcium 8.3 L Phosphorus 1.60 L D Magnesium Direct Bilirubin ALT Alkaline Phosphatase Troponin T C-Reactive Protein Total Protein Albumin Triglycerides Cholesterol LDL Cholesterol Direct HDL Cholesterol Urine WBC (Auto) Urine Creatinine Urine Total Protein Vancomycin Trough Rheumatoid Factor Complement C4 Miscellaneous Test Crossmatch 10/25/16 10/25/16 10/25/16 04:32 11:48 17:22 WBC RBC Hgb Hct MCV MCH MCHC RDW Plt Count Lymph % (Auto) [place] % (Auto) Lymph # [place] # Baso # Seg Neutrophils % Seg Neuts % (Manual) Lymphocytes % (Manual) Monocytes % (Manual) Eosinophils % (Manual) Basophils % (Manual) Nucleated RBC % Seg Neutrophils # Seg Neutrophils # Man Lymphocytes # (Manual) Monocytes # (Manual) Eosinophils # (Manual) PT INR Fibrinogen dRVVT Confirm Interp Factor V Activity POC ABG pH POC ABG pCO2 POC ABG pO2 Sodium Potassium Chloride Carbon Dioxide BUN Creatinine Glucose POC Glucose 124 H 171 H 120 H Lactic Acid Calcium Phosphorus Magnesium Direct Bilirubin ALT Alkaline Phosphatase Troponin T C-Reactive Protein Total Protein Albumin Triglycerides Cholesterol LDL Cholesterol Direct HDL Cholesterol Urine WBC (Auto) Urine Creatinine Urine Total Protein Vancomycin Trough Rheumatoid Factor Complement C4 Miscellaneous Test Crossmatch 10/26/16 10/26/16 10/26/16 04:54 07:06 07:06 WBC 16.9 H RBC 3.06 L Hgb 9.1 L Hct 26.9 L MCV MCH MCHC RDW 16.9 H Plt Count Lymph % (Auto) [place] % (Auto) Lymph # [place] # Baso # Seg Neutrophils % Seg Neuts % (Manual) 71.0 H Lymphocytes % (Manual) 5.0 L Monocytes % (Manual) 12.0 H Eosinophils % (Manual) Basophils % (Manual) Nucleated RBC % Seg Neutrophils # Seg Neutrophils # Man 12.0 H Lymphocytes # (Manual) 0.8 L Monocytes # (Manual) 2.0 H Eosinophils # (Manual) PT INR Fibrinogen dRVVT Confirm Interp Factor V Activity POC ABG pH POC ABG pCO2 POC ABG pO2 Sodium 135 L Potassium Chloride 97.1 L Carbon Dioxide BUN 73 H Creatinine 2.2 H Glucose 117 H POC Glucose 123 H Lactic Acid Calcium Phosphorus 1.70 L Magnesium Direct Bilirubin ALT Alkaline Phosphatase Troponin T C-Reactive Protein Total Protein Albumin Triglycerides Cholesterol LDL Cholesterol Direct HDL Cholesterol Urine WBC (Auto) Urine Creatinine Urine Total Protein Vancomycin Trough Rheumatoid Factor Complement C4 Miscellaneous Test Crossmatch 10/26/16 10/26/16 10/26/16 12:12 17:29 23:42 WBC RBC Hgb Hct MCV MCH MCHC RDW Plt Count Lymph % (Auto) [place] % (Auto) Lymph # [place] # Baso # Seg Neutrophils % Seg Neuts % (Manual) Lymphocytes % (Manual) Monocytes % (Manual) Eosinophils % (Manual) Basophils % (Manual) Nucleated RBC % Seg Neutrophils # Seg Neutrophils # Man Lymphocytes # (Manual) Monocytes # (Manual) Eosinophils # (Manual) PT INR Fibrinogen dRVVT Confirm Interp Factor V Activity POC ABG pH POC ABG pCO2 POC ABG pO2 Sodium Potassium Chloride Carbon Dioxide BUN Creatinine Glucose POC Glucose 126 H 161 H 118 H Lactic Acid Calcium Phosphorus Magnesium Direct Bilirubin ALT Alkaline Phosphatase Troponin T C-Reactive Protein Total Protein Albumin Triglycerides Cholesterol LDL Cholesterol Direct HDL Cholesterol Urine WBC (Auto) Urine Creatinine Urine Total Protein Vancomycin Trough Rheumatoid Factor Complement C4 Miscellaneous Test Crossmatch 10/27/16 10/27/16 10/27/16 05:03 06:30 06:30 WBC 13.9 H RBC 3.09 L Hgb 9.2 L Hct 27.5 L MCV MCH MCHC RDW 17.0 H Plt Count Lymph % (Auto) [place] % (Auto) Lymph # [place] # Baso # Seg Neutrophils % Seg Neuts % (Manual) 78.0 H Lymphocytes % (Manual) Monocytes % (Manual) Eosinophils % (Manual) Basophils % (Manual) Nucleated RBC % 2.0 H Seg Neutrophils # Seg Neutrophils # Man 10.8 H Lymphocytes # (Manual) Monocytes # (Manual) 1.0 H Eosinophils # (Manual) PT INR Fibrinogen dRVVT Confirm Interp Factor V Activity POC ABG pH POC ABG pCO2 POC ABG pO2 Sodium Potassium Chloride Carbon Dioxide BUN 40 H Creatinine 1.5 H Glucose 135 H POC Glucose 107 H Lactic Acid Calcium 8.3 L Phosphorus 1.30 L D Magnesium Direct Bilirubin ALT Alkaline Phosphatase Troponin T C-Reactive Protein Total Protein Albumin Triglycerides Cholesterol LDL Cholesterol Direct HDL Cholesterol Urine WBC (Auto) Urine Creatinine Urine Total Protein Vancomycin Trough Rheumatoid Factor Complement C4 Miscellaneous Test Crossmatch 10/27/16 10/27/16 10/27/16 13:27 18:07 23:40 WBC RBC Hgb Hct MCV MCH MCHC RDW Plt Count Lymph % (Auto) [place] % (Auto) Lymph # [place] # Baso # Seg Neutrophils % Seg Neuts % (Manual) Lymphocytes % (Manual) Monocytes % (Manual) Eosinophils % (Manual) Basophils % (Manual) Nucleated RBC % Seg Neutrophils # Seg Neutrophils # Man Lymphocytes # (Manual) Monocytes # (Manual) Eosinophils # (Manual) PT INR Fibrinogen dRVVT Confirm Interp Factor V Activity POC ABG pH POC ABG pCO2 POC ABG pO2 Sodium Potassium Chloride Carbon Dioxide BUN Creatinine Glucose POC Glucose 117 H 121 H 118 H Lactic Acid Calcium Phosphorus Magnesium Direct Bilirubin ALT Alkaline Phosphatase Troponin T C-Reactive Protein Total Protein Albumin Triglycerides Cholesterol LDL Cholesterol Direct HDL Cholesterol Urine WBC (Auto) Urine Creatinine Urine Total Protein Vancomycin Trough Rheumatoid Factor Complement C4 Miscellaneous Test Crossmatch 10/28/16 10/28/16 10/28/16 05:48 06:45 06:45 WBC 14.7 H RBC 3.05 L Hgb 9.0 L Hct 26.9 L MCV MCH MCHC RDW 16.8 H Plt Count Lymph % (Auto) 8.2 L [place] % (Auto) 8.4 H Lymph # [place] # 1.2 H Baso # Seg Neutrophils % 81.9 H Seg Neuts % (Manual) Lymphocytes % (Manual) Monocytes % (Manual) Eosinophils % (Manual) Basophils % (Manual) Nucleated RBC % Seg Neutrophils # 12.1 H Seg Neutrophils # Man Lymphocytes # (Manual) Monocytes # (Manual) Eosinophils # (Manual) PT INR Fibrinogen dRVVT Confirm Interp Factor V Activity POC ABG pH POC ABG pCO2 POC ABG pO2 Sodium Potassium Chloride Carbon Dioxide BUN 60 H Creatinine 1.9 H Glucose 120 H POC Glucose 114 H Lactic Acid Calcium Phosphorus Magnesium Direct Bilirubin ALT Alkaline Phosphatase Troponin T C-Reactive Protein Total Protein Albumin Triglycerides Cholesterol LDL Cholesterol Direct HDL Cholesterol Urine WBC (Auto) Urine Creatinine Urine Total Protein Vancomycin Trough Rheumatoid Factor Complement C4 Miscellaneous Test Crossmatch 10/28/16 10/28/16 10/29/16 17:08 23:50 05:10 WBC RBC Hgb Hct MCV MCH MCHC RDW Plt Count Lymph % (Auto) [place] % (Auto) Lymph # [place] # Baso # Seg Neutrophils % Seg Neuts % (Manual) Lymphocytes % (Manual) Monocytes % (Manual) Eosinophils % (Manual) Basophils % (Manual) Nucleated RBC % Seg Neutrophils # Seg Neutrophils # Man Lymphocytes # (Manual) Monocytes # (Manual) Eosinophils # (Manual) PT INR Fibrinogen dRVVT Confirm Interp Factor V Activity POC ABG pH POC ABG pCO2 POC ABG pO2 Sodium Potassium Chloride Carbon Dioxide BUN Creatinine Glucose POC Glucose 109 H 110 H 124 H Lactic Acid Calcium Phosphorus Magnesium Direct Bilirubin ALT Alkaline Phosphatase Troponin T C-Reactive Protein Total Protein Albumin Triglycerides Cholesterol LDL Cholesterol Direct HDL Cholesterol Urine WBC (Auto) Urine Creatinine Urine Total Protein Vancomycin Trough Rheumatoid Factor Complement C4 Miscellaneous Test Crossmatch 10/29/16 10/29/16 10/29/16 07:45 07:45 12:19 WBC 14.7 H RBC 3.15 L Hgb 9.3 L Hct 28.9 L MCV MCH MCHC RDW 17.0 H Plt Count Lymph % (Auto) 11.9 L [place] % (Auto) 8.6 H Lymph # [place] # 1.3 H Baso # Seg Neutrophils % 78.1 H Seg Neuts % (Manual) Lymphocytes % (Manual) Monocytes % (Manual) Eosinophils % (Manual) Basophils % (Manual) Nucleated RBC % Seg Neutrophils # 11.4 H Seg Neutrophils # Man Lymphocytes # (Manual) Monocytes # (Manual) Eosinophils # (Manual) PT INR Fibrinogen dRVVT Confirm Interp Factor V Activity POC ABG pH POC ABG pCO2 POC ABG pO2 Sodium Potassium 5.1 H Chloride Carbon Dioxide 19 L BUN 78 H Creatinine 2.2 H Glucose 116 H POC Glucose 118 H Lactic Acid Calcium Phosphorus Magnesium Direct Bilirubin ALT Alkaline Phosphatase Troponin T C-Reactive Protein Total Protein Albumin Triglycerides Cholesterol LDL Cholesterol Direct HDL Cholesterol Urine WBC (Auto) Urine Creatinine Urine Total Protein Vancomycin Trough Rheumatoid Factor Complement C4 Miscellaneous Test Crossmatch 10/29/16 10/30/16 10/30/16 17:49 01:52 03:28 WBC RBC Hgb Hct MCV MCH MCHC RDW Plt Count Lymph % (Auto) [place] % (Auto) Lymph # [place] # Baso # Seg Neutrophils % Seg Neuts % (Manual) Lymphocytes % (Manual) Monocytes % (Manual) Eosinophils % (Manual) Basophils % (Manual) Nucleated RBC % Seg Neutrophils # Seg Neutrophils # Man Lymphocytes # (Manual) Monocytes # (Manual) Eosinophils # (Manual) PT INR Fibrinogen dRVVT Confirm Interp Factor V Activity POC ABG pH POC ABG pCO2 POC ABG pO2 Sodium Potassium 5.4 H Chloride 97.5 L Carbon Dioxide 19 L BUN 90 H Creatinine 2.5 H Glucose POC Glucose 120 H 129 H Lactic Acid Calcium Phosphorus 5.20 H Magnesium Direct Bilirubin ALT Alkaline Phosphatase Troponin T C-Reactive Protein Total Protein Albumin Triglycerides Cholesterol LDL Cholesterol Direct HDL Cholesterol Urine WBC (Auto) Urine Creatinine Urine Total Protein Vancomycin Trough Rheumatoid Factor Complement C4 Miscellaneous Test Crossmatch 10/30/16 10/30/16 10/30/16 03:28 08:19 08:19 WBC 11.6 H 15.9 H RBC 2.75 L 2.82 L Hgb 7.9 L 8.3 L Hct 24.2 L 25.2 L MCV MCH MCHC RDW 16.7 H 17.2 H Plt Count Lymph % (Auto) [place] % (Auto) 9.8 H Lymph # [place] # 1.1 H Baso # Seg Neutrophils % 74.2 H Seg Neuts % (Manual) Lymphocytes % (Manual) Monocytes % (Manual) Eosinophils % (Manual) Basophils % (Manual) Nucleated RBC % Seg Neutrophils # 8.6 H Seg Neutrophils # Man Lymphocytes # (Manual) Monocytes # (Manual) Eosinophils # (Manual) PT INR Fibrinogen dRVVT Confirm Interp Factor V Activity POC ABG pH POC ABG pCO2 POC ABG pO2 Sodium Potassium 5.3 H Chloride 97.4 L Carbon Dioxide 19 L BUN 93 H Creatinine 2.6 H Glucose POC Glucose Lactic Acid Calcium Phosphorus Magnesium Direct Bilirubin ALT Alkaline Phosphatase Troponin T C-Reactive Protein Total Protein Albumin Triglycerides Cholesterol LDL Cholesterol Direct HDL Cholesterol Urine WBC (Auto) Urine Creatinine Urine Total Protein Vancomycin Trough Rheumatoid Factor Complement C4 Miscellaneous Test Crossmatch 10/30/16 10/30/16 10/31/16 17:11 23:56 00:40 WBC RBC Hgb Hct MCV MCH MCHC RDW Plt Count Lymph % (Auto) [place] % (Auto) Lymph # [place] # Baso # Seg Neutrophils % Seg Neuts % (Manual) Lymphocytes % (Manual) Monocytes % (Manual) Eosinophils % (Manual) Basophils % (Manual) Nucleated RBC % Seg Neutrophils # Seg Neutrophils # Man Lymphocytes # (Manual) Monocytes # (Manual) Eosinophils # (Manual) PT INR Fibrinogen dRVVT Confirm Interp Factor V Activity POC ABG pH POC ABG pCO2 POC ABG pO2 Sodium Potassium Chloride Carbon Dioxide BUN Creatinine Glucose POC Glucose 106 H 117 H 120 H Lactic Acid Calcium Phosphorus Magnesium Direct Bilirubin ALT Alkaline Phosphatase Troponin T C-Reactive Protein Total Protein Albumin Triglycerides Cholesterol LDL Cholesterol Direct HDL Cholesterol Urine WBC (Auto) Urine Creatinine Urine Total Protein Vancomycin Trough Rheumatoid Factor Complement C4 Miscellaneous Test Crossmatch 10/31/16 10/31/16 10/31/16 05:43 07:15 07:15 WBC 12.1 H RBC 2.63 L Hgb 7.7 L Hct 23.3 L MCV MCH MCHC RDW 16.7 H Plt Count Lymph % (Auto) 11.7 L [place] % (Auto) 7.7 H Lymph # [place] # 0.9 H Baso # Seg Neutrophils % 78.0 H Seg Neuts % (Manual) Lymphocytes % (Manual) Monocytes % (Manual) Eosinophils % (Manual) Basophils % (Manual) Nucleated RBC % Seg Neutrophils # 9.4 H Seg Neutrophils # Man Lymphocytes # (Manual) Monocytes # (Manual) Eosinophils # (Manual) PT INR Fibrinogen dRVVT Confirm Interp Factor V Activity POC ABG pH POC ABG pCO2 POC ABG pO2 Sodium Potassium Chloride 96.4 L Carbon Dioxide 21 L BUN 99 H Creatinine 2.6 H Glucose 144 H POC Glucose 125 H Lactic Acid Calcium Phosphorus 4.80 H Magnesium Direct Bilirubin ALT Alkaline Phosphatase Troponin T C-Reactive Protein Total Protein Albumin Triglycerides Cholesterol LDL Cholesterol Direct HDL Cholesterol Urine WBC (Auto) Urine Creatinine Urine Total Protein Vancomycin Trough Rheumatoid Factor Complement C4 Miscellaneous Test Crossmatch 10/31/16 10/31/16 11/01/16 11:46 18:34 00:20 WBC RBC Hgb Hct MCV MCH MCHC RDW Plt Count Lymph % (Auto) [place] % (Auto) Lymph # [place] # Baso # Seg Neutrophils % Seg Neuts % (Manual) Lymphocytes % (Manual) Monocytes % (Manual) Eosinophils % (Manual) Basophils % (Manual) Nucleated RBC % Seg Neutrophils # Seg Neutrophils # Man Lymphocytes # (Manual) Monocytes # (Manual) Eosinophils # (Manual) PT INR Fibrinogen dRVVT Confirm Interp Factor V Activity POC ABG pH POC ABG pCO2 POC ABG pO2 Sodium Potassium Chloride Carbon Dioxide BUN Creatinine Glucose POC Glucose 159 H 140 H 132 H Lactic Acid Calcium Phosphorus Magnesium Direct Bilirubin ALT Alkaline Phosphatase Troponin T C-Reactive Protein Total Protein Albumin Triglycerides Cholesterol LDL Cholesterol Direct HDL Cholesterol Urine WBC (Auto) Urine Creatinine Urine Total Protein Vancomycin Trough Rheumatoid Factor Complement C4 Miscellaneous Test Crossmatch 11/01/16 11/01/16 11/01/16 04:55 04:55 06:11 WBC 11.2 H RBC 2.68 L Hgb 7.5 L Hct 23.7 L MCV MCH MCHC RDW 16.1 H Plt Count Lymph % (Auto) [place] % (Auto) 9.8 H Lymph # [place] # 1.1 H Baso # Seg Neutrophils % 70.8 H Seg Neuts % (Manual) Lymphocytes % (Manual) Monocytes % (Manual) Eosinophils % (Manual) Basophils % (Manual) Nucleated RBC % Seg Neutrophils # 7.9 H Seg Neutrophils # Man Lymphocytes # (Manual) Monocytes # (Manual) Eosinophils # (Manual) PT INR Fibrinogen dRVVT Confirm Interp Factor V Activity POC ABG pH POC ABG pCO2 POC ABG pO2 Sodium Potassium 3.3 L D Chloride Carbon Dioxide BUN 61 H Creatinine 1.9 H Glucose 114 H POC Glucose 115 H Lactic Acid Calcium Phosphorus 1.80 L D Magnesium Direct Bilirubin ALT Alkaline Phosphatase Troponin T C-Reactive Protein Total Protein Albumin Triglycerides Cholesterol LDL Cholesterol Direct HDL Cholesterol Urine WBC (Auto) Urine Creatinine Urine Total Protein Vancomycin Trough Rheumatoid Factor Complement C4 Miscellaneous Test Crossmatch 11/01/16 11/01/16 11/01/16 12:29 18:23 23:58 WBC RBC Hgb Hct MCV MCH MCHC RDW Plt Count Lymph % (Auto) [place] % (Auto) Lymph # [place] # Baso # Seg Neutrophils % Seg Neuts % (Manual) Lymphocytes % (Manual) Monocytes % (Manual) Eosinophils % (Manual) Basophils % (Manual) Nucleated RBC % Seg Neutrophils # Seg Neutrophils # Man Lymphocytes # (Manual) Monocytes # (Manual) Eosinophils # (Manual) PT INR Fibrinogen dRVVT Confirm Interp Factor V Activity POC ABG pH POC ABG pCO2 POC ABG pO2 Sodium Potassium Chloride Carbon Dioxide BUN Creatinine Glucose POC Glucose 142 H 143 H 128 H Lactic Acid Calcium Phosphorus Magnesium Direct Bilirubin ALT Alkaline Phosphatase Troponin T C-Reactive Protein Total Protein Albumin Triglycerides Cholesterol LDL Cholesterol Direct HDL Cholesterol Urine WBC (Auto) Urine Creatinine Urine Total Protein Vancomycin Trough Rheumatoid Factor Complement C4 Miscellaneous Test Crossmatch 11/02/16 11/02/16 11/02/16 04:16 05:29 11:58 WBC RBC Hgb Hct MCV MCH MCHC RDW Plt Count Lymph % (Auto) [place] % (Auto) Lymph # [place] # Baso # Seg Neutrophils % Seg Neuts % (Manual) Lymphocytes % (Manual) Monocytes % (Manual) Eosinophils % (Manual) Basophils % (Manual) Nucleated RBC % Seg Neutrophils # Seg Neutrophils # Man Lymphocytes # (Manual) Monocytes # (Manual) Eosinophils # (Manual) PT INR Fibrinogen dRVVT Confirm Interp Factor V Activity POC ABG pH POC ABG pCO2 POC ABG pO2 Sodium Potassium 3.1 L Chloride Carbon Dioxide BUN 73 H Creatinine 2.3 H Glucose 112 H POC Glucose 135 H 149 H Lactic Acid Calcium Phosphorus Magnesium Direct Bilirubin ALT Alkaline Phosphatase Troponin T C-Reactive Protein Total Protein Albumin Triglycerides Cholesterol LDL Cholesterol Direct HDL Cholesterol Urine WBC (Auto) Urine Creatinine Urine Total Protein Vancomycin Trough Rheumatoid Factor Complement C4 Miscellaneous Test Crossmatch 11/02/16 11/02/16 11/03/16 17:42 22:54 06:00 WBC RBC Hgb Hct MCV MCH MCHC RDW Plt Count Lymph % (Auto) [place] % (Auto) Lymph # [place] # Baso # Seg Neutrophils % Seg Neuts % (Manual) Lymphocytes % (Manual) Monocytes % (Manual) Eosinophils % (Manual) Basophils % (Manual) Nucleated RBC % Seg Neutrophils # Seg Neutrophils # Man Lymphocytes # (Manual) Monocytes # (Manual) Eosinophils # (Manual) PT INR Fibrinogen dRVVT Confirm Interp Factor V Activity POC ABG pH POC ABG pCO2 POC ABG pO2 Sodium Potassium Chloride 96.7 L Carbon Dioxide BUN 41 H Creatinine 1.5 H Glucose 145 H POC Glucose 182 H 115 H Lactic Acid Calcium Phosphorus 1.60 L D Magnesium 1.50 L Direct Bilirubin ALT Alkaline Phosphatase Troponin T C-Reactive Protein Total Protein Albumin Triglycerides Cholesterol LDL Cholesterol Direct HDL Cholesterol Urine WBC (Auto) Urine Creatinine Urine Total Protein Vancomycin Trough Rheumatoid Factor Complement C4 Miscellaneous Test Crossmatch 11/03/16 11/03/16 11/03/16 11:53 17:45 23:37 WBC RBC Hgb Hct MCV MCH MCHC RDW Plt Count Lymph % (Auto) [place] % (Auto) Lymph # [place] # Baso # Seg Neutrophils % Seg Neuts % (Manual) Lymphocytes % (Manual) Monocytes % (Manual) Eosinophils % (Manual) Basophils % (Manual) Nucleated RBC % Seg Neutrophils # Seg Neutrophils # Man Lymphocytes # (Manual) Monocytes # (Manual) Eosinophils # (Manual) PT INR Fibrinogen dRVVT Confirm Interp Factor V Activity POC ABG pH POC ABG pCO2 POC ABG pO2 Sodium Potassium Chloride Carbon Dioxide BUN Creatinine Glucose POC Glucose 131 H 134 H 113 H Lactic Acid Calcium Phosphorus Magnesium Direct Bilirubin ALT Alkaline Phosphatase Troponin T C-Reactive Protein Total Protein Albumin Triglycerides Cholesterol LDL Cholesterol Direct HDL Cholesterol Urine WBC (Auto) Urine Creatinine Urine Total Protein Vancomycin Trough Rheumatoid Factor Complement C4 Miscellaneous Test Crossmatch 11/04/16 11/04/16 11/04/16 05:41 06:00 12:10 WBC RBC Hgb Hct MCV MCH MCHC RDW Plt Count Lymph % (Auto) [place] % (Auto) Lymph # [place] # Baso # Seg Neutrophils % Seg Neuts % (Manual) Lymphocytes % (Manual) Monocytes % (Manual) Eosinophils % (Manual) Basophils % (Manual) Nucleated RBC % Seg Neutrophils # Seg Neutrophils # Man Lymphocytes # (Manual) Monocytes # (Manual) Eosinophils # (Manual) PT INR Fibrinogen dRVVT Confirm Interp Factor V Activity POC ABG pH POC ABG pCO2 POC ABG pO2 Sodium Potassium Chloride 96.7 L Carbon Dioxide BUN 52 H Creatinine 1.9 H Glucose 126 H POC Glucose 137 H 191 H Lactic Acid Calcium Phosphorus Magnesium Direct Bilirubin ALT Alkaline Phosphatase Troponin T C-Reactive Protein Total Protein Albumin Triglycerides Cholesterol LDL Cholesterol Direct HDL Cholesterol Urine WBC (Auto) Urine Creatinine Urine Total Protein Vancomycin Trough Rheumatoid Factor Complement C4 Miscellaneous Test Crossmatch 11/04/16 11/05/16 11/05/16 22:57 03:10 05:10 WBC RBC Hgb Hct MCV MCH MCHC RDW Plt Count Lymph % (Auto) [place] % (Auto) Lymph # [place] # Baso # Seg Neutrophils % Seg Neuts % (Manual) Lymphocytes % (Manual) Monocytes % (Manual) Eosinophils % (Manual) Basophils % (Manual) Nucleated RBC % Seg Neutrophils # Seg Neutrophils # Man Lymphocytes # (Manual) Monocytes # (Manual) Eosinophils # (Manual) PT INR Fibrinogen dRVVT Confirm Interp Factor V Activity POC ABG pH POC ABG pCO2 POC ABG pO2 Sodium 136 L Potassium Chloride 97.2 L Carbon Dioxide BUN 32 H Creatinine 1.3 H Glucose 123 H POC Glucose 125 H 108 H Lactic Acid Calcium 7.8 L Phosphorus Magnesium Direct Bilirubin ALT Alkaline Phosphatase Troponin T C-Reactive Protein Total Protein Albumin Triglycerides Cholesterol LDL Cholesterol Direct HDL Cholesterol Urine WBC (Auto) Urine Creatinine Urine Total Protein Vancomycin Trough Rheumatoid Factor Complement C4 Miscellaneous Test Crossmatch 11/05/16 12:23 WBC RBC Hgb Hct MCV MCH MCHC RDW Plt Count Lymph % (Auto) [place] % (Auto) Lymph # [place] # Baso # Seg Neutrophils % Seg Neuts % (Manual) Lymphocytes % (Manual) Monocytes % (Manual) Eosinophils % (Manual) Basophils % (Manual) Nucleated RBC % Seg Neutrophils # Seg Neutrophils # Man Lymphocytes # (Manual) Monocytes # (Manual) Eosinophils # (Manual) PT INR Fibrinogen dRVVT Confirm Interp Factor V Activity POC ABG pH POC ABG pCO2 POC ABG pO2 Sodium Potassium Chloride Carbon Dioxide BUN Creatinine Glucose POC Glucose 124 H Lactic Acid Calcium Phosphorus Magnesium Direct Bilirubin ALT Alkaline Phosphatase Troponin T C-Reactive Protein Total Protein Albumin Triglycerides Cholesterol LDL Cholesterol Direct HDL Cholesterol Urine WBC (Auto) Urine Creatinine Urine Total Protein Vancomycin Trough Rheumatoid Factor Complement C4 Miscellaneous Test Crossmatch Allied health notes reviewed: RT
[2016-11-05] MEDS: TYLENOL FEEDTUBE PRN (12:52)
[2016-11-05] MEDS: TRANSDERM-SCOP TD SCH (13:05)
[2016-11-05 14:14] LABS: Bacteria,Urine 4+ /HPF (Negative); Bilirubin,Urine NEG (Negative); Blood,Urine NEG (Negative); Color,Urine Yellow (Yellow); Urobilinogen,Urine < 2.0 mg/dL (<2.0)
[2016-11-05] MEDS ORDERED: TPN ADULT 2,016 ML IV SCH (20:00)
[2016-11-06] MEDS: HumuLIN R SUB-Q SCH ×4 (00:50→18:02)
[2016-11-06] MEDS: LOPRESSOR PO SCH ×4 (06:16→23:39)
[2016-11-06 07:00] LABS: Basophils # (Auto) 0.1 K/mm3 (0.0-0.1); Basophils % (Auto) 0.9 % (0.0-1.8); Eosinophils # (Auto) 0.2 K/mm3 (0.0-0.4); Hematocrit 22.5 % (30.3-42.9); Hemoglobin 7.3 gm/dl (10.1-14.3); Lymphocytes # (Auto) 2.5 K/mm3 (1.2-5.4); Lymphocytes % (Auto) 23.3 % (13.4-35.0); Mean Corpuscular HGB Conc 32 % (30-34); Mean Corpuscular Hemoglobin 29 pg (28-32); Mean Corpuscular Volume 90 fl (79-97); Monocytes # (Auto) 1.1 K/mm3 (0.0-0.8); Monocytes % (Auto) 10.5 % (0.0-7.3); Platelet Count 283 K/mm3 (140-440); Red Cell Distribution Width 16.9 % (13.2-15.2)
[2016-11-06 07:28] LABS: Albumin 1.8 g/dL (3.9-5); BUN/Creatinine Ratio 28.88; Calcium 8.6 mg/dL (8.4-10.2); Prealbumin 0.18 g/L (0.200-0.400)
[2016-11-06] MEDS: COZAAR PO SCH (09:19)
[2016-11-06] MEDS: PROTONIX FEEDTUBE SCH (09:19)
[2016-11-06] MEDS ORDERED: NACL 0.9% 100 ML IV PRN (09:29)
--- NOTE | 2016-11-06 09:33 | Progress Note ---
Subjective Principal diagnosis: Acute resp failure on MVS; S/P Acute CVA; Acute Encephalopathy; JUANITA Interval history: Patient was seen today for follow-up on multiple renal-related issues Tachycardia has improved blood pressure elevated Patient does not follow command at this time She is on dialysis Events of 24 hours, interdisciplinary notes were also reviewed Lab results were reviewed Social history: Reviewed Medication: Reviewed Family history: Reviewed Allergies: Reviewed Physical examination General; no acute distress HEENT: Mild pallor no icterus oral mucosa moist Neck: Supple soft no jugular venous distention Chest: Bilateral clear to auscultation anteriorly posteriorly a few faint basilar crackles at the lung bases no wheezes Cardiovascular: S1-S2 heart no S3-S4 Abdomen: Soft nontender no voluntary guarding rigidity rebound no organomegaly no masses no suprapubic fullness no CVA tenderness Extremity: Minimal edema dry skin no tenderness in the Area Derm: Dry skin Assessment and plan Acute on chronic renal failure patient is currently dialysis dependent, no s/s of recovery She will need to be dialyzed on Monday schedule Accelerated hypertension difficult to control on metoprolol to add clonidine and adjust hydralazine Will discontinue erythropoietin due to recent stroke give only packed red blood cell transfusion Respiratory failure, anemia, GI bleed, sepsis, candidemia Has renal artery stenosis likely causing uncontrolled hypertension Overall prognosis guarded to poor We'll continue to follow and make recommendation from renal standpoint Objective - Vital Signs Vital signs: Vital Signs - 12hr 11/05/16 11/05/16 11/05/16 22:00 22:30 23:00 Temperature Pulse Rate 112 H 117 H 118 H Pulse Rate [ From Monitor] Respiratory 22 22 21 Rate Respiratory 20 Rate [ Generalized] Blood Pressure 144/81 166/94 168/91 O2 Sat by Pulse 100 100 100 Oximetry O2 Sat by Pulse Oximetry [ Assessment] 11/05/16 11/05/16 11/05/16 23:01 23:02 23:30 Temperature Pulse Rate 119 H 119 H 112 H Pulse Rate [ From Monitor] Respiratory 28 H 25 H Rate Respiratory Rate [ Generalized] Blood Pressure 168/91 168/91 174/93 O2 Sat by Pulse 99 100 Oximetry O2 Sat by Pulse Oximetry [ Assessment] 11/05/16 11/06/16 11/06/16 23:44 00:00 00:30 Temperature 99.1 F Pulse Rate 103 H 102 H Pulse Rate [ 103 H From Monitor] Respiratory 21 21 Rate Respiratory Rate [ Generalized] Blood Pressure 158/89 149/82 O2 Sat by Pulse 100 100 Oximetry O2 Sat by Pulse 100 Oximetry [ Assessment] 11/06/16 11/06/16 11/06/16 01:00 01:30 01:41 Temperature Pulse Rate 107 H 107 H 106 H Pulse Rate [ From Monitor] Respiratory 19 22 21 Rate Respiratory Rate [ Generalized] Blood Pressure 143/89 156/90 156/90 O2 Sat by Pulse 100 100 100 Oximetry O2 Sat by Pulse Oximetry [ Assessment] 11/06/16 11/06/16 11/06/16 01:50 02:00 02:11 Temperature Pulse Rate 110 H 106 H 109 H Pulse Rate [ From Monitor] Respiratory 20 18 24 Rate Respiratory Rate [ Generalized] Blood Pressure 168/91 155/84 156/90 O2 Sat by Pulse 100 100 100 Oximetry O2 Sat by Pulse Oximetry [ Assessment] 11/06/16 11/06/16 11/06/16 02:21 02:30 02:41 Temperature Pulse Rate 113 H 114 H 109 H Pulse Rate [ From Monitor] Respiratory 24 23 21 Rate Respiratory Rate [ Generalized] Blood Pressure 156/90 136/91 155/84 O2 Sat by Pulse 100 100 100 Oximetry O2 Sat by Pulse Oximetry [ Assessment] 11/06/16 11/06/16 11/06/16 02:51 03:00 03:11 Temperature Pulse Rate 117 H 114 H 108 H Pulse Rate [ From Monitor] Respiratory 19 22 20 Rate Respiratory Rate [ Generalized] Blood Pressure 155/84 142/94 142/94 O2 Sat by Pulse 100 100 100 Oximetry O2 Sat by Pulse Oximetry [ Assessment] 11/06/16 11/06/16 11/06/16 03:21 03:22 03:31 Temperature 98.8 F Pulse Rate 105 H 113 H Pulse Rate [ From Monitor] Respiratory 21 23 Rate Respiratory Rate [ Generalized] Blood Pressure 142/94 157/91 O2 Sat by Pulse 100 100 Oximetry O2 Sat by Pulse Oximetry [ Assessment] 11/06/16 11/06/16 11/06/16 03:41 03:51 04:00 Temperature Pulse Rate 115 H 112 H 109 H Pulse Rate [ From Monitor] Respiratory 22 22 20 Rate Respiratory Rate [ Generalized] Blood Pressure 157/91 157/91 142/80 O2 Sat by Pulse 100 100 100 Oximetry O2 Sat by Pulse Oximetry [ Assessment] 11/06/16 11/06/16 11/06/16 04:11 04:21 04:30 Temperature Pulse Rate 110 H 112 H 110 H Pulse Rate [ From Monitor] Respiratory 20 20 20 Rate Respiratory Rate [ Generalized] Blood Pressure 157/91 157/91 138/81 O2 Sat by Pulse 100 100 100 Oximetry O2 Sat by Pulse Oximetry [ Assessment] 11/06/16 11/06/16 11/06/16 04:41 04:51 05:01 Temperature Pulse Rate 105 H 110 H Pulse Rate [ From Monitor] Respiratory 15 19 Rate Respiratory Rate [ Generalized] Blood Pressure 142/80 142/80 178/102 O2 Sat by Pulse 100 100 100 Oximetry O2 Sat by Pulse Oximetry [ Assessment] 11/06/16 11/06/16 11/06/16 05:10 05:41 05:51 Temperature Pulse Rate 126 H 115 H Pulse Rate [ From Monitor] Respiratory 21 21 Rate Respiratory Rate [ Generalized] Blood Pressure 138/81 138/81 138/81 O2 Sat by Pulse 100 Oximetry O2 Sat by Pulse Oximetry [ Assessment] 11/06/16 11/06/16 11/06/16 06:00 06:11 06:16 Temperature Pulse Rate 115 H 110 H 111 H Pulse Rate [ From Monitor] Respiratory 21 20 Rate Respiratory Rate [ Generalized] Blood Pressure 171/96 171/96 171/96 O2 Sat by Pulse Oximetry O2 Sat by Pulse Oximetry [ Assessment] 11/06/16 11/06/16 11/06/16 06:21 06:30 06:41 Temperature Pulse Rate 105 H 107 H 104 H Pulse Rate [ From Monitor] Respiratory 18 22 20 Rate Respiratory Rate [ Generalized] Blood Pressure 171/96 163/93 163/93 O2 Sat by Pulse 100 Oximetry O2 Sat by Pulse Oximetry [ Assessment] 11/06/16 11/06/16 11/06/16 06:51 07:00 07:11 Temperature Pulse Rate 100 H 101 H 102 H Pulse Rate [ From Monitor] Respiratory 21 20 21 Rate Respiratory Rate [ Generalized] Blood Pressure 163/93 175/94 175/94 O2 Sat by Pulse 100 100 100 Oximetry O2 Sat by Pulse Oximetry [ Assessment] 11/06/16 11/06/16 11/06/16 07:21 07:30 07:32 Temperature 100.1 F H Pulse Rate 101 H 102 H Pulse Rate [ From Monitor] Respiratory 24 22 Rate Respiratory Rate [ Generalized] Blood Pressure 175/94 183/91 O2 Sat by Pulse 97 100 Oximetry O2 Sat by Pulse Oximetry [ Assessment] 11/06/16 11/06/16 11/06/16 07:54 08:00 09:19 Temperature Pulse Rate 102 H 106 H 107 H Pulse Rate [ From Monitor] Respiratory 44 H Rate Respiratory Rate [ Generalized] Blood Pressure 183/91 189/97 181/96 O2 Sat by Pulse 100 100 Oximetry O2 Sat by Pulse 100 Oximetry [ Assessment] - Lab 11/06/16 06:25 11/06/16 06:25 Most recent lab results Calcium 8.6 mg/dL (8.4-10.2) 11/06/16 06:25 Phosphorus 4.00 mg/dL (2.5-4.5) D 11/06/16 06:25 Magnesium 2.00 mg/dL (1.7-2.3) 11/06/16 06:25 Urine Creatinine TNR 10/29/16 07:45 Urine Sodium 36 mEq/L 09/16/16 19:19 Urine Total Protein 16 mg/dL (5-11.8) H 09/16/16 19:19
--- NOTE | 2016-11-06 10:41 | Progress Note ---
Assessment and Plan Assessment and plan: 46-year-old woman with a history of hypertension, diabetes, asthma, hyperlipidemia, chronic kidney disease and anxiety , who was brought in by family because, she couldn't get her words out, her face was also twisted, she was admitted for acute CVA and accelerated hypertension, she had a hx of poor adherence with her medications, and uncontrolled htn. Patient's blood pressure systolically on admission was noted be greater than 260. TPA was started but this was discontinued after 5 minutes because her blood pressure became uncontrolled. The TPA was not initiated again because the patient was outside the TPA window. Fever Reconsult infectious disease, has recently completed antibiotics Spoke with Dr. Eli of infectious disease. She recommended obtaining a stat chest x-ray, UA, urine culture, blood cultures, these have been negative so far , CRP, pro calcitonin and holding antibiotics at this time. fever curve is coming down, fup blood cultures, patient does have a PICC line and a vasc cath, this may be possible etiology of infection, but fever appears to be resolving without any antibiotics -Severe Sepsis with septic shock, recurrent. Patient with multiple episodes of sepsis. Initial episode due to presumed aspiration pneumonia and septic episode on 09/23 from candidemia then a third episode from peritonitis from gastric perforation from dislodged PEG , there was an abscess in the abdomen present at that time that was draining pus. +/-UTI. The latest episode was related to surgical site infection. Fevers have now resolved. Continue antibiotics per ID. Surgical wound infection/gram-negative sepsis/candidemia/peritonitis PEG has been removed Has already completed 14 days of abx and antifungals, ID input appreciated She will need to be on tube feeds through NG tube for a month, and then either a gastrostomy or jejunostomy tube replaced after her GI wounds have healed and infection is cleared JUANITA Likely due to vasomotor nephropathy and ATN given sepsis Nephrology input appreciated, continue hemodialysis Acute CVA with infarct. sp TPA Continue neuro checks. Neurology input appreciated, CT shows continued evolution of left MCA infarct with slight mass effect and edema, and there is no hemorrhage - PRINCE showed hyperdynamic with ef of 75%, neither clot nor septal defect seen - MRA Brain shows near complete occlusion of M2 and M3 of the left MCA - Repeat CT scan done on 09/11, shows stable findings - carotid doppler negative - Echo shows preserved systolic function but does show some left ventricular diastolic dysfunction - continue asa and statin for secondary ppx Persistent vegetative state This patient's needs placement at either hospice or SNF -She was denied for LTACH Acute hypoxic respiratory failure requiring MV >96hrs Status post tracheostomy, continue mechanical ventilation Nosocomial acquired aspiration pneumonia/sepsis/UTI Completed a course of antibiotics Asthma/COPD exacerbation Patient is on antibiotics, steroids and nebs, continue MV, intubated Acute Toxic Metabolic encephalopathy. Likely multifactorial, mostly secondary to evolution of CVA for restlessness, we checked troponin, EKG, CXR which were all negative Hypertensive Emergency Continue current medications Paroxysmal atrial fibrillation with rapid ventricular rate, failed cardioversion Continue current medications, Not a candidate for anticoagulation secondary to anemia thrombocytopenia and massive CVA Hypokalemia/Hypomagnesemia/hypophosphatemia. Replete electrolytes as needed. Diabetes type 2. Continue sliding-scale regular insulin and Accu-Cheks. Hyperlipidemia. Continue statin Nutrition continue tube feeds Anemia requiring multiple transfusions/acute blood loss Has received 11 units of PRBC, now stable, continue to monitor Case discussed with the patient's family and pulmonology her POA is her Brother, Jam [phone] Dispo. Very poor prognosis. Plan for SNIF placement, she was ready denied by LTAC The high probability of a clinically significant, sudden or life threatening deterioration of the [cardiovascular and neurological] system(s) required my full and direct attention, intervention and personal management. The aggregate critical care time was [33] minutes. This time is in addition to time spent performing reported procedures but includes the following: [] Data Review and interpretation [] Patient assessment and monitoring of vital signs [] Documentation [] Medication orders and management History Interval history: She opens her eyes, but does not obey commands. Has tracheostomy in place Fever curve has been coming down Hospitalist Physical - Physical exam Narrative exam: General: Opens eyes, no distress HEENT: MMM, EOMI cardiac: S1-S2 heard lungs: ventilated breath sounds abdomen: soft, nontender, nondistended bowel sounds positive extremities: no edema clubbing or cyanosis Skin: no rash or lesion Neuro: Status post tracheostomy, opens eyes, does not obey commands, right- sided weakness - Constitutional Vitals: Temp Pulse Resp BP Pulse Ox 100.1 F H 107 H 44 H 181/96 100 11/06/16 07:32 11/06/16 09:19 11/06/16 08:00 11/06/16 09:19 11/06/16 08:00 General appearance: Present: no acute distress, obese, other (on vent, non- responsive) Results - Labs CBC & Chem 7: 11/06/16 06:25 11/06/16 06:25 Labs: Laboratory Last Values WBC 10.6 K/mm3 (4.5-11.0) 11/06/16 06:25 RBC 2.50 M/mm3 (3.65-5.03) L 11/06/16 06:25 Hgb 7.3 gm/dl (10.1-14.3) L 11/06/16 06:25 Hct 22.5 % (30.3-42.9) L 11/06/16 06:25 MCV 90 fl (79-97) 11/06/16 06:25 MCH 29 pg (28-32) 11/06/16 06:25 MCHC 32 % (30-34) 11/06/16 06:25 RDW 16.9 % (13.2-15.2) H 11/06/16 06:25 Plt Count 283 K/mm3 (140-440) 11/06/16 06:25 Lymph % (Auto) 23.3 % (13.4-35.0) 11/06/16 06:25 Taylor % (Auto) 10.5 % (0.0-7.3) H 11/06/16 06:25 Eos % (Auto) 2.0 % (0.0-4.3) 11/06/16 06:25 Baso % (Auto) 0.9 % (0.0-1.8) 11/06/16 06:25 Lymph # 2.5 K/mm3 (1.2-5.4) 11/06/16 06:25 Taylor # 1.1 K/mm3 (0.0-0.8) H 11/06/16 06:25 Eos # 0.2 K/mm3 (0.0-0.4) 11/06/16 06:25 Baso # 0.1 K/mm3 (0.0-0.1) 11/06/16 06:25 Add Manual Diff Complete 10/27/16 06:30 Total Counted 100 10/27/16 06:30 Seg Neutrophils % 63.3 % (40.0-70.0) 11/06/16 06:25 Seg Neuts % (Manual) 78.0 % (40.0-70.0) H 10/27/16 06:30 Band Neutrophils % 0 % 10/27/16 06:30 Lymphocytes % (Manual) 14.0 % (13.4-35.0) 10/27/16 06:30 Reactive Lymphs % (Man) 0 % 10/27/16 06:30 Monocytes % (Manual) 7.0 % (0.0-7.3) 10/27/16 06:30 Eosinophils % (Manual) 0 % (0.0-4.3) 10/27/16 06:30 Basophils % (Manual) 1.0 % (0.0-1.8) 10/27/16 06:30 Metamyelocytes % 0 % 10/27/16 06:30 Myelocytes % 0 % 10/27/16 06:30 Promyelocytes % 0 % 10/27/16 06:30 Blast Cells % 0 % 10/27/16 06:30 Nucleated RBC % 2.0 % (0.0-0.9) H 10/27/16 06:30 Seg Neutrophils # 6.7 K/mm3 (1.8-7.7) 11/06/16 06:25 Seg Neutrophils # Man 10.8 K/mm3 (1.8-7.7) H 10/27/16 06:30 Band Neutrophils # 0.0 K/mm3 10/27/16 06:30 Lymphocytes # (Manual) 1.9 K/mm3 (1.2-5.4) 10/27/16 06:30 Abs React Lymphs (Man) 0.0 K/mm3 10/27/16 06:30 Monocytes # (Manual) 1.0 K/mm3 (0.0-0.8) H 10/27/16 06:30 Eosinophils # (Manual) 0.0 K/mm3 (0.0-0.4) 10/27/16 06:30 Basophils # (Manual) 0.1 K/mm3 (0.0-0.1) 10/27/16 06:30 Metamyelocytes # 0.0 K/mm3 10/27/16 06:30 Myelocytes # 0.0 K/mm3 10/27/16 06:30 Promyelocytes # 0.0 K/mm3 10/27/16 06:30 Blast Cells # 0.0 K/mm3 10/27/16 06:30 Pathologist Review 09/13/16 04:00 WBC Morphology Not Reportable 10/27/16 06:30 Hypersegmented Neuts Not Reportable 10/27/16 06:30 Hyposegmented Neuts Not Reportable 10/27/16 06:30 Hypogranular Neuts Not Reportable 10/27/16 06:30 Smudge Cells Not Reportable 10/27/16 06:30 Toxic Granulation Not Reportable 10/27/16 06:30 Toxic Vacuolation Not Reportable 10/27/16 06:30 Dohle Bodies Not Reportable 10/27/16 06:30 Pelger-Huet Anomaly Not Reportable 10/27/16 06:30 Jasmina Rods Not Reportable 10/27/16 06:30 Platelet Estimate Cons 10/27/16 06:30 Clumped Platelets Not Reportable 10/27/16 06:30 Plt Clumps, EDTA Not Reportable 10/27/16 06:30 Large Platelets Few 10/27/16 06:30 Giant Platelets Not Reportable 10/27/16 06:30 Platelet Satelliting Not Reportable 10/27/16 06:30 Plt Morphology Comment Not Reportable 10/27/16 06:30 RBC Morphology Not Reportable 10/27/16 06:30 Dimorphic RBCs Not Reportable 10/27/16 06:30 Polychromasia Not Reportable 10/27/16 06:30 Hypochromasia Not Reportable 10/27/16 06:30 Poikilocytosis Not Reportable 10/27/16 06:30 Anisocytosis 1+ 10/27/16 06:30 Microcytosis Not Reportable 10/27/16 06:30 Macrocytosis Not Reportable 10/27/16 06:30 Spherocytes Not Reportable 10/27/16 06:30 Pappenheimer Bodies Not Reportable 10/27/16 06:30 Sickle Cells Not Reportable 10/27/16 06:30 Target Cells Not Reportable 10/27/16 06:30 Tear Drop Cells Not Reportable 10/27/16 06:30 Ovalocytes Not Reportable 10/27/16 06:30 Stomatocytes Few 10/06/16 03:50 Helmet Cells Not Reportable 10/27/16 06:30 Monet-Ina Bodies Not Reportable 10/27/16 06:30 [place] Rings Not Reportable 10/27/16 06:30 Mitchell Cells Not Reportable 10/27/16 06:30 Bite Cells Not Reportable 10/27/16 06:30 Crenated Cell Not Reportable 10/27/16 06:30 Elliptocytes Not Reportable 10/27/16 06:30 Acanthocytes (Spur) Not Reportable 10/27/16 06:30 Rouleaux Not Reportable 10/27/16 06:30 Hemoglobin C Crystals Not Reportable 10/27/16 06:30 Schistocytes Not Reportable 10/27/16 06:30 Malaria parasites Not Reportable 10/27/16 06:30 ESR > 140.0 mm/Hr (0-20) 09/08/16 11:48 Jun Bodies Not Reportable 10/27/16 06:30 Hem Pathologist Commnt No 10/27/16 06:30 PT 19.0 Sec. (12.2-14.9) H 10/09/16 03:45 INR 1.51 (0.87-1.13) H 10/09/16 03:45 APTT 33.0 Sec. (24.2-36.6) 10/09/16 03:45 Thrombin Time 16.8 Sec. (15.1-19.6) 09/03/16 00:10 Fibrinogen 750 mg/dl (211-480) H 09/08/16 11:48 Lupus Anticoagulant see below 09/12/16 09:59 LA PTT Baseline See scanned report 09/12/16 09:59 dRVVT Confirm Interp Positive (Negative) H 09/12/16 09:59 dRVVT Screen 50:50 See scanned report 09/12/16 09:59 dRVVT Mix Interpret See scanned report 09/12/16 09:59 Protein C Antigen 122 % (70-140) 09/08/16 15:35 Free Protein S 97 % normal (50-147) 09/08/16 15:35 Total Protein S 109 % (70-140) 09/08/16 15:35 Antithrombin III Ag 100 % (80-120) 09/08/16 15:35 Heparin Anti-Xa, Unfract Negative (Negative) 09/29/16 13:35 Factor V Activity 182 % (65-150) H 09/08/16 15:35 POC ABG pH 7.561 (7.35-7.45) H 10/16/16 20:48 POC ABG pCO2 24.4 (35-45) L 10/16/16 20:48 POC ABG pO2 77 (80-105) L 10/16/16 20:48 POC ABG HCO3 21.9 10/16/16 20:48 POC ABG Total CO2 23 10/16/16 20:48 POC ABG O2 Sat 97 10/16/16 20:48 POC ABG Base Excess 0 10/16/16 20:48 FiO2 25 % 10/16/16 20:48 Sodium 137 mmol/L (137-145) 11/06/16 06:25 Potassium 5.1 mmol/L (3.6-5.0) H 11/06/16 06:25 Chloride 95.9 mmol/L (98-107) L 11/06/16 06:25 Carbon Dioxide 28 mmol/L (22-30) 11/06/16 06:25 Anion Gap 18 mmol/L 11/06/16 06:25 BUN 52 mg/dL (7-17) H 11/06/16 06:25 Creatinine 1.8 mg/dL (0.7-1.2) H 11/06/16 06:25 Estimated GFR 37 ml/min 11/06/16 06:25 BUN/Creatinine Ratio 28.88 % 11/06/16 06:25 Glucose 117 mg/dL (65-100) H 11/06/16 06:25 POC Glucose 120 (70-105) H 11/06/16 04:56 Osmolality 351 Mosm/kg 09/16/16 11:47 Lactic Acid 4.50 mmol/L (0.7-2.0) H* 09/28/16 07:25 Calcium 8.6 mg/dL (8.4-10.2) 11/06/16 06:25 Phosphorus 4.00 mg/dL (2.5-4.5) D 11/06/16 06:25 Magnesium 2.00 mg/dL (1.7-2.3) 11/06/16 06:25 Total Bilirubin 0.20 mg/dL (0.1-1.2) 11/06/16 06:25 Direct Bilirubin 0.3 mg/dL (0-0.2) H 10/10/16 05:00 Indirect Bilirubin 0.1 mg/dL 10/10/16 05:00 AST 103 units/L (5-40) H 11/06/16 06:25 ALT 77 units/L (7-56) H 11/06/16 06:25 Alkaline Phosphatase 285 units/L (35-129) H 11/06/16 06:25 Ammonia 27.0 umol/L (25-60) 09/07/16 08:37 Total Creatine Kinase 121 units/L (30-135) 09/29/16 20:12 CK-MB (CK-2) < 1.0 ng/mL (0.0-4.0) 09/29/16 20:12 CK-MB (CK-2) Rel Index 0.8 (0-4) 09/29/16 20:12 Troponin T 0.204 ng/mL (0.00-0.029) H* 09/29/16 20:12 C-Reactive Protein 11.40 mg/dL (0.00-1.30) H 11/05/16 13:25 Total Protein 6.2 g/dL (6.3-8.2) L 11/06/16 06:25 Albumin 1.8 g/dL (3.9-5) L 11/06/16 06:25 Albumin/Globulin Ratio 0.4 % 11/06/16 06:25 Prealbumin 0.180 g/L (0.200-0.400) L 11/06/16 06:25 Triglycerides 137 mg/dL (2-149) 09/29/16 20:12 Cholesterol 31 mg/dL (50-199) L 09/29/16 20:12 LDL Cholesterol Direct 4 mg/dL (50-130) L 09/29/16 20:12 HDL Cholesterol 3 mg/dL (40-59) L 09/29/16 20:12 Cholesterol/HDL Ratio 10.33 % 09/29/16 20:12 Angiotensin Convert Enz See scanned report 09/08/16 11:48 Renin 0.99 ng/mL/h (0.25-5.82) 10/07/16 10:56 Aldosterone <1 ng/dL () 10/07/16 10:56 Aldosterone/Renin Dir see below 10/07/16 10:56 Serotonin Release Assay See scanned report 09/29/16 13:35 TSH 1.010 mlU/mL (0.270-4.200) 09/07/16 08:37 HCG, Qual Negative (Negative) 09/03/16 00:10 Urine Color Yellow (Yellow) 11/05/16 13:09 Urine Turbidity Clear (Clear) 11/05/16 13:09 Urine pH 9.0 (5.0-7.0) H 11/05/16 13:09 Ur Specific [place] 1.011 (1.003-1.030) 11/05/16 13:09 Urine Protein 100 mg/dl mg/dL (Negative) 11/05/16 13:09 Urine Glucose (UA) Neg mg/dL (Negative) 11/05/16 13:09 Urine Ketones Neg mg/dL (Negative) 11/05/16 13:09 Urine Blood Neg (Negative) 11/05/16 13:09 Urine Nitrite Neg (Negative) 11/05/16 13:09 Urine Bilirubin Neg (Negative) 11/05/16 13:09 Urine Urobilinogen < 2.0 mg/dL (<2.0) 11/05/16 13:09 Ur Leukocyte Esterase Neg (Negative) 11/05/16 13:09 Urine WBC (Auto) 4.0 /HPF (0.0-6.0) 11/05/16 13:09 Urine RBC (Auto) 1.0 /HPF (0.0-6.0) 11/05/16 13:09 U Epithel Cells (Auto) 1.0 /HPF (0-13.0) 10/07/16 18:30 Urine Bacteria (Auto) 4+ /HPF (Negative) 11/05/16 13:09 Urine WBC Clumps 2+ /HPF 09/07/16 02:47 Hyaline Casts 4 /LPF 09/07/16 02:47 Urine Mucus Few /HPF 10/07/16 18:30 Urine Yeast (Budding) 3+ /HPF 10/07/16 18:30 Urine Eosinophils None seen (None Seen) 09/07/16 16:00 Urine Total Volume TNR 10/29/16 07:45 Urine Creatinine TNR 10/29/16 07:45 Height (in) TNR 10/29/16 07:45 Weight (lb) TNR 10/29/16 07:45 Creatinine Clearance TNR 10/29/16 07:45 Urine Sodium 36 mEq/L 09/16/16 19:19 Urine Total Protein 16 mg/dL (5-11.8) H 09/16/16 19:19 Vancomycin Trough 2.3 ug/mL (5.0-20.0) L 09/21/16 13:00 Random Vancomycin 17.0 ug/mL (0-40.0) 10/20/16 06:00 Urine Opiates Screen Presumptive negative 09/03/16 15:11 Urine Methadone Screen Presumptive positive 09/03/16 15:11 Ur Barbiturates Screen Presumptive positive 09/03/16 15:11 Ur Phencyclidine Scrn Presumptive negative 09/03/16 15:11 Ur Amphetamines Screen Presumptive negative 09/03/16 15:11 U Benzodiazepines Scrn Presumptive negative 09/03/16 15:11 Urine Cocaine Screen Presumptive negative 09/03/16 15:11 U Marijuana (THC) Screen Presumptive positive 09/03/16 15:11 Drugs of Abuse Note Disclamer 09/03/16 15:11 Rheumatoid Factor 24 IU/ml (0-13) H 09/08/16 11:48 SAHIL Screen Negative (Negative) 09/07/16 09:20 Proteinase 3 (PR3) Ab <1.0 AI (<1.0) 09/07/16 09:20 Myeloperoxidase Ab <1.0 AI (<1.0) 09/07/16 09:20 Sjogren's Antibody <1.0 AI (<1.0) 09/08/16 15:35 Scl-70 Scleroderma Ab <1.0 AI (<1.0) 09/08/16 15:35 Centromere B Antibody <1.0 AI (<1.0) 09/08/16 12:02 Heparin-induced Plt Ab Negative (Negative) 09/29/16 13:35 UF Heparin High Dose 11 % Release 09/29/16 13:35 SUDHIR UFH Low Dose 0.1 6 % Release 09/29/16 13:35 SUDHIR UFH Low Dose 0.5 8 % Release 09/29/16 13:35 Cardiolipid IgG Ab <14 GPL (<=14) 09/12/16 09:59 Cardiolipid IgA Ab <11 APL (<=11) 09/12/16 09:59 Cardiolipid IgM Ab <12 MPL (<=12) 09/12/16 09:59 Complement C3 148 mg/dL (90-180) 09/07/16 09:20 Complement C4 58 mg/dL (16-47) H 09/07/16 09:20 RPR Nonreactive (Nonreactive) 09/08/16 11:48 Hepatitis A IgM Ab Non-reactive (NonReactive) 09/24/16 14:40 Hep Bs Antigen Non-reactive (Negative) 09/24/16 14:40 Hep B Core IgM Ab Non-reactive (NonReactive) 09/24/16 14:40 Hepatitis C Antibody Non-reactive (NonReactive) 09/24/16 14:40 HIV 1&2 Antibody Rapid Non react (Non React) 09/08/16 11:48 HIV P24 Antigen Non react (Non React) 09/08/16 11:48 Miscellaneous Test Flexitest 1 H 10/20/16 16:00 Blood Type A POSITIVE 10/24/16 Unknown Antibody Screen Negative 10/24/16 Unknown DELORIS Antibody Screen Negative 09/25/16 10:30 Crossmatch See Detail 10/24/16 Unknown
--- NOTE | 2016-11-06 10:56 | Progress Note ---
Assessment and Plan Patient is 46-year-old woman with a history of hypertension, diabetes mellitus, asthma, hyperlipidemia, chronic kidney disease and anxiety, who was brought in by family because she couldn't get her words out, her face was also twisted, she was admitted for acute CVA and accelerated hypertension, she had a hx of poor adherence with her medications, and uncontrolled htn. Patient's SBP on admission was noted be greater than 260. TPA was started but this it was discontinued after 5 minutes because her blood pressure became uncontrolled. The TPA was not initiated again because the patient was outside the TPA window. - Patient Problems (1) Acute respiratory failure with hypoxia Current Visit: Yes Status: Acute Plan to address problem: Continue with mechanical ventilatory support and daily SBTs as tolerated Currently tolerating ATP trials Lung protective strategies -VAP bundle, HOB >40 - SCDs for VTE prophylaxis - Stress ulcer prophylaxis -Bronchodilators- h/o asthma - TPN, accucheck with glycemic control - ABGs and CXR PRN (2) Acute blood loss anemia Current Visit: Yes Status: Resolved Plan to address problem: Transfuse for Hgh 7g/dl Monitor counts (3) Acute CVA (cerebrovascular accident) Current Visit: Yes Status: Acute Plan to address problem: CTScan -subacute MCA territory infarct Secondary stroke prophylaxis Neuroprotective measures Aspiration precautions (4) Chronic renal insufficiency Current Visit: Yes Status: Acute Qualifiers: Chronic kidney disease stage: C Plan to address problem: UF/HD per renal service Renal following (5) Uncontrolled hypertension Current Visit: Yes Status: Acute Plan to address problem: Monitor closely and adjust anti-hypertensive medications (6) Leukocytosis (leucocytosis) Current Visit: Yes Status: Acute Qualifiers: Leukocytosis type: leukemoid reaction Qualified Code(s): D72.823 - Leukemoid reaction Plan to address problem: Has new fevers. Carson cultures done Empiric levofloxacin per ID while waiting cultures results (7) Dislodged gastrostomy tube Current Visit: Yes Status: Acute Plan to address problem: With bowel perforation/peritonitis( resolved) Remains NPO except medications and on TPN for nutritional support. (8) Fungemia Current Visit: Yes Status: Resolved Plan to address problem: s/p anti-fungal therapy per ID service. Subjective Date of service: 11/06/16 Principal diagnosis: Acute resp failure on MVS; S/P Acute CVA; Acute Encephalopathy; JUANITA Interval history: Seen and examined. Vitals, labs, medications, chart reviewed. High grade fevers on going, intermittent Carson cultures in progress. Discussed with RT and RN during interdisciplinary rounds. Objective Vital Signs - 12hr 11/05/16 11/05/16 11/05/16 23:00 23:01 23:02 Temperature Pulse Rate 118 H 119 H 119 H Pulse Rate [ From Monitor] Respiratory 21 28 H Rate Blood Pressure 168/91 168/91 168/91 O2 Sat by Pulse 100 99 Oximetry O2 Sat by Pulse Oximetry [ Assessment] 11/05/16 11/05/16 11/06/16 23:30 23:44 00:00 Temperature 99.1 F Pulse Rate 112 H 103 H Pulse Rate [ 103 H From Monitor] Respiratory 25 H 21 Rate Blood Pressure 174/93 158/89 O2 Sat by Pulse 100 100 Oximetry O2 Sat by Pulse 100 Oximetry [ Assessment] 11/06/16 11/06/16 11/06/16 00:30 01:00 01:30 Temperature Pulse Rate 102 H 107 H 107 H Pulse Rate [ From Monitor] Respiratory 21 19 22 Rate Blood Pressure 149/82 143/89 156/90 O2 Sat by Pulse 100 100 100 Oximetry O2 Sat by Pulse Oximetry [ Assessment] 11/06/16 11/06/16 11/06/16 01:41 01:50 02:00 Temperature Pulse Rate 106 H 110 H 106 H Pulse Rate [ From Monitor] Respiratory 21 20 18 Rate Blood Pressure 156/90 168/91 155/84 O2 Sat by Pulse 100 100 100 Oximetry O2 Sat by Pulse Oximetry [ Assessment] 11/06/16 11/06/16 11/06/16 02:11 02:21 02:30 Temperature Pulse Rate 109 H 113 H 114 H Pulse Rate [ From Monitor] Respiratory 24 24 23 Rate Blood Pressure 156/90 156/90 136/91 O2 Sat by Pulse 100 100 100 Oximetry O2 Sat by Pulse Oximetry [ Assessment] 11/06/16 11/06/16 11/06/16 02:41 02:51 03:00 Temperature Pulse Rate 109 H 117 H 114 H Pulse Rate [ From Monitor] Respiratory 21 19 22 Rate Blood Pressure 155/84 155/84 142/94 O2 Sat by Pulse 100 100 100 Oximetry O2 Sat by Pulse Oximetry [ Assessment] 11/06/16 11/06/16 11/06/16 03:11 03:21 03:22 Temperature 98.8 F Pulse Rate 108 H 105 H Pulse Rate [ From Monitor] Respiratory 20 21 Rate Blood Pressure 142/94 142/94 O2 Sat by Pulse 100 100 Oximetry O2 Sat by Pulse Oximetry [ Assessment] 11/06/16 11/06/16 11/06/16 03:31 03:41 03:51 Temperature Pulse Rate 113 H 115 H 112 H Pulse Rate [ From Monitor] Respiratory 23 22 22 Rate Blood Pressure 157/91 157/91 157/91 O2 Sat by Pulse 100 100 100 Oximetry O2 Sat by Pulse Oximetry [ Assessment] 11/06/16 11/06/16 11/06/16 04:00 04:11 04:21 Temperature Pulse Rate 109 H 110 H 112 H Pulse Rate [ From Monitor] Respiratory 20 20 20 Rate Blood Pressure 142/80 157/91 157/91 O2 Sat by Pulse 100 100 100 Oximetry O2 Sat by Pulse Oximetry [ Assessment] 11/06/16 11/06/16 11/06/16 04:30 04:41 04:51 Temperature Pulse Rate 110 H 105 H 110 H Pulse Rate [ From Monitor] Respiratory 20 15 19 Rate Blood Pressure 138/81 142/80 142/80 O2 Sat by Pulse 100 100 100 Oximetry O2 Sat by Pulse Oximetry [ Assessment] 11/06/16 11/06/16 11/06/16 05:01 05:10 05:41 Temperature Pulse Rate 126 H Pulse Rate [ From Monitor] Respiratory 21 Rate Blood Pressure 178/102 138/81 138/81 O2 Sat by Pulse 100 100 Oximetry O2 Sat by Pulse Oximetry [ Assessment] 11/06/16 11/06/16 11/06/16 05:51 06:00 06:11 Temperature Pulse Rate 115 H 115 H 110 H Pulse Rate [ From Monitor] Respiratory 21 21 20 Rate Blood Pressure 138/81 171/96 171/96 O2 Sat by Pulse Oximetry O2 Sat by Pulse Oximetry [ Assessment] 11/06/16 11/06/16 11/06/16 06:16 06:21 06:30 Temperature Pulse Rate 111 H 105 H 107 H Pulse Rate [ From Monitor] Respiratory 18 22 Rate Blood Pressure 171/96 171/96 163/93 O2 Sat by Pulse Oximetry O2 Sat by Pulse Oximetry [ Assessment] 11/06/16 11/06/16 11/06/16 06:41 06:51 07:00 Temperature Pulse Rate 104 H 100 H 101 H Pulse Rate [ From Monitor] Respiratory 20 21 20 Rate Blood Pressure 163/93 163/93 175/94 O2 Sat by Pulse 100 100 100 Oximetry O2 Sat by Pulse Oximetry [ Assessment] 11/06/16 11/06/16 11/06/16 07:11 07:21 07:30 Temperature Pulse Rate 102 H 101 H 102 H Pulse Rate [ From Monitor] Respiratory 21 24 22 Rate Blood Pressure 175/94 175/94 183/91 O2 Sat by Pulse 100 97 100 Oximetry O2 Sat by Pulse Oximetry [ Assessment] 11/06/16 11/06/16 11/06/16 07:32 07:54 08:00 Temperature 100.1 F H Pulse Rate 102 H 106 H Pulse Rate [ From Monitor] Respiratory 44 H Rate Blood Pressure 183/91 189/97 O2 Sat by Pulse 100 100 Oximetry O2 Sat by Pulse 100 Oximetry [ Assessment] 11/06/16 09:19 Temperature Pulse Rate 107 H Pulse Rate [ From Monitor] Respiratory Rate Blood Pressure 181/96 O2 Sat by Pulse Oximetry O2 Sat by Pulse Oximetry [ Assessment] Constitutional: no acute distress, other (eyes open; not tracking movements) Eyes: non-icteric, other (tracheostomy tube in midline of neck) ENT: oropharynx moist Neck: supple, no lymphadenopathy Effort: mildly labored Ascultation: Right: diminished breath sounds (base), Bilateral: clear, rales, rhonchi (scant) Cardiovascular: regular rate and rhythm, irregular rhythm Gastrointestinal: hypoactive bowel sounds, soft, non-tender, non-distended, other (RLQ wound dressed) Integumentary: normal, other (erythema to skin of back with some healing areas; no obvious TEN's features) Extremities: no cyanosis, no edema, pulses normal, no ischemia or petechiae Neurologic: pupils equal and round, unable to assess, other (encephalopathic) Psychiatric: other (unable to assess) CBC and BMP: 12/28/16 04:00 12/29/16 05:15 ABG, PT/INR, D-dimer: ABG POC ABG pH 7.561 (7.35-7.45) H 10/16/16 20:48 POC ABG pCO2 24.4 (35-45) L 10/16/16 20:48 POC ABG pO2 77 (80-105) L 10/16/16 20:48 POC ABG HCO3 21.9 10/16/16 20:48 POC ABG Total CO2 23 10/16/16 20:48 POC ABG O2 Sat 97 10/16/16 20:48 PT/INR, D-dimer PT 19.0 Sec. (12.2-14.9) H 10/09/16 03:45 INR 1.51 (0.87-1.13) H 10/09/16 03:45 Abnormal lab findings: Abnormal Labs 09/03/16 09/03/16 09/03/16 12:12 15:07 16:20 WBC RBC Hgb Hct MCV MCH MCHC RDW Plt Count Lymph % (Auto) Mcdonald % (Auto) Lymph # Mcdonald # Baso # Seg Neutrophils % Seg Neuts % (Manual) Lymphocytes % (Manual) Monocytes % (Manual) Eosinophils % (Manual) Basophils % (Manual) Nucleated RBC % Seg Neutrophils # Seg Neutrophils # Man Lymphocytes # (Manual) Monocytes # (Manual) Eosinophils # (Manual) PT INR Fibrinogen dRVVT Confirm Interp Factor V Activity POC ABG pH 7.452 H POC ABG pCO2 POC ABG pO2 Sodium Potassium Chloride Carbon Dioxide BUN Creatinine Glucose POC Glucose 178 H Lactic Acid Calcium Phosphorus 2.20 L Magnesium 1.60 L Direct Bilirubin AST ALT Alkaline Phosphatase Troponin T C-Reactive Protein Total Protein Albumin Prealbumin Triglycerides Cholesterol LDL Cholesterol Direct HDL Cholesterol Urine pH Urine WBC (Auto) Urine Creatinine Urine Total Protein Vancomycin Trough Rheumatoid Factor Complement C4 Miscellaneous Test Crossmatch 09/03/16 09/03/16 09/03/16 17:57 17:58 23:50 WBC RBC Hgb Hct MCV MCH MCHC RDW Plt Count Lymph % (Auto) Mcdonald % (Auto) Lymph # Mcdonald # Baso # Seg Neutrophils % Seg Neuts % (Manual) Lymphocytes % (Manual) Monocytes % (Manual) Eosinophils % (Manual) Basophils % (Manual) Nucleated RBC % Seg Neutrophils # Seg Neutrophils # Man Lymphocytes # (Manual) Monocytes # (Manual) Eosinophils # (Manual) PT INR Fibrinogen dRVVT Confirm Interp Factor V Activity POC ABG pH POC ABG pCO2 POC ABG pO2 Sodium Potassium Chloride Carbon Dioxide BUN Creatinine Glucose POC Glucose 162 H 145 H Lactic Acid Calcium Phosphorus 2.30 L Magnesium Direct Bilirubin AST ALT Alkaline Phosphatase Troponin T C-Reactive Protein Total Protein Albumin Prealbumin Triglycerides Cholesterol LDL Cholesterol Direct HDL Cholesterol Urine pH Urine WBC (Auto) Urine Creatinine Urine Total Protein Vancomycin Trough Rheumatoid Factor Complement C4 Miscellaneous Test Crossmatch 09/04/16 09/04/16 09/04/16 03:31 03:31 05:42 WBC RBC Hgb 9.7 L D Hct MCV 72 L MCH 23 L MCHC RDW 17.5 H Plt Count Lymph % (Auto) 11.1 L Mcdonald % (Auto) Lymph # Mcdonald # Baso # Seg Neutrophils % 84.3 H Seg Neuts % (Manual) Lymphocytes % (Manual) Monocytes % (Manual) Eosinophils % (Manual) Basophils % (Manual) Nucleated RBC % Seg Neutrophils # 8.9 H Seg Neutrophils # Man Lymphocytes # (Manual) Monocytes # (Manual) Eosinophils # (Manual) PT INR Fibrinogen dRVVT Confirm Interp Factor V Activity POC ABG pH POC ABG pCO2 POC ABG pO2 Sodium 135 L Potassium 2.9 L* Chloride 97.2 L Carbon Dioxide 19 L BUN Creatinine 1.7 H Glucose 170 H POC Glucose 152 H Lactic Acid Calcium Phosphorus Magnesium Direct Bilirubin AST ALT Alkaline Phosphatase Troponin T C-Reactive Protein Total Protein Albumin Prealbumin Triglycerides 160 H Cholesterol LDL Cholesterol Direct HDL Cholesterol 31 L Urine pH Urine WBC (Auto) Urine Creatinine Urine Total Protein Vancomycin Trough Rheumatoid Factor Complement C4 Miscellaneous Test Crossmatch 09/04/16 09/04/16 09/04/16 11:34 17:46 23:29 WBC RBC Hgb Hct MCV MCH MCHC RDW Plt Count Lymph % (Auto) Mcdonald % (Auto) Lymph # Mcdonald # Baso # Seg Neutrophils % Seg Neuts % (Manual) Lymphocytes % (Manual) Monocytes % (Manual) Eosinophils % (Manual) Basophils % (Manual) Nucleated RBC % Seg Neutrophils # Seg Neutrophils # Man Lymphocytes # (Manual) Monocytes # (Manual) Eosinophils # (Manual) PT INR Fibrinogen dRVVT Confirm Interp Factor V Activity POC ABG pH POC ABG pCO2 POC ABG pO2 Sodium Potassium Chloride Carbon Dioxide BUN Creatinine Glucose POC Glucose 165 H 210 H 139 H Lactic Acid Calcium Phosphorus Magnesium Direct Bilirubin AST ALT Alkaline Phosphatase Troponin T C-Reactive Protein Total Protein Albumin Prealbumin Triglycerides Cholesterol LDL Cholesterol Direct HDL Cholesterol Urine pH Urine WBC (Auto) Urine Creatinine Urine Total Protein Vancomycin Trough Rheumatoid Factor Complement C4 Miscellaneous Test Crossmatch 09/05/16 09/05/16 09/05/16 04:05 04:05 05:38 WBC RBC Hgb Hct MCV 76 L D MCH 23 L MCHC RDW 17.8 H Plt Count Lymph % (Auto) Mcdonald % (Auto) Lymph # Mcdonald # Baso # Seg Neutrophils % Seg Neuts % (Manual) Lymphocytes % (Manual) Monocytes % (Manual) Eosinophils % (Manual) Basophils % (Manual) Nucleated RBC % Seg Neutrophils # Seg Neutrophils # Man Lymphocytes # (Manual) Monocytes # (Manual) Eosinophils # (Manual) PT INR Fibrinogen dRVVT Confirm Interp Factor V Activity POC ABG pH POC ABG pCO2 POC ABG pO2 Sodium 134 L Potassium Chloride Carbon Dioxide 18 L BUN Creatinine 1.8 H Glucose 192 H POC Glucose 175 H Lactic Acid Calcium Phosphorus Magnesium Direct Bilirubin AST ALT Alkaline Phosphatase Troponin T C-Reactive Protein Total Protein Albumin Prealbumin Triglycerides Cholesterol LDL Cholesterol Direct HDL Cholesterol Urine pH Urine WBC (Auto) Urine Creatinine Urine Total Protein Vancomycin Trough Rheumatoid Factor Complement C4 Miscellaneous Test Crossmatch 09/05/16 09/05/16 09/05/16 11:38 17:48 23:22 WBC RBC Hgb Hct MCV MCH MCHC RDW Plt Count Lymph % (Auto) Mcdonald % (Auto) Lymph # Mcdonald # Baso # Seg Neutrophils % Seg Neuts % (Manual) Lymphocytes % (Manual) Monocytes % (Manual) Eosinophils % (Manual) Basophils % (Manual) Nucleated RBC % Seg Neutrophils # Seg Neutrophils # Man Lymphocytes # (Manual) Monocytes # (Manual) Eosinophils # (Manual) PT INR Fibrinogen dRVVT Confirm Interp Factor V Activity POC ABG pH POC ABG pCO2 POC ABG pO2 Sodium Potassium Chloride Carbon Dioxide BUN Creatinine Glucose POC Glucose 164 H 186 H 195 H Lactic Acid Calcium Phosphorus Magnesium Direct Bilirubin AST ALT Alkaline Phosphatase Troponin T C-Reactive Protein Total Protein Albumin Prealbumin Triglycerides Cholesterol LDL Cholesterol Direct HDL Cholesterol Urine pH Urine WBC (Auto) Urine Creatinine Urine Total Protein Vancomycin Trough Rheumatoid Factor Complement C4 Miscellaneous Test Crossmatch 09/06/16 09/06/16 09/06/16 04:12 05:59 07:32 WBC RBC Hgb Hct MCV MCH MCHC RDW Plt Count Lymph % (Auto) Mcdonald % (Auto) Lymph # Mcdonald # Baso # Seg Neutrophils % Seg Neuts % (Manual) Lymphocytes % (Manual) Monocytes % (Manual) Eosinophils % (Manual) Basophils % (Manual) Nucleated RBC % Seg Neutrophils # Seg Neutrophils # Man Lymphocytes # (Manual) Monocytes # (Manual) Eosinophils # (Manual) PT INR Fibrinogen dRVVT Confirm Interp Factor V Activity POC ABG pH 7.514 H POC ABG pCO2 29.1 L POC ABG pO2 72 L Sodium 133 L Potassium 3.4 L Chloride 94.9 L Carbon Dioxide 19 L BUN 30 H Creatinine 2.1 H Glucose 139 H POC Glucose 146 H Lactic Acid Calcium Phosphorus Magnesium Direct Bilirubin AST ALT Alkaline Phosphatase Troponin T C-Reactive Protein Total Protein Albumin Prealbumin Triglycerides Cholesterol LDL Cholesterol Direct HDL Cholesterol Urine pH Urine WBC (Auto) Urine Creatinine Urine Total Protein Vancomycin Trough Rheumatoid Factor Complement C4 Miscellaneous Test Crossmatch 09/06/16 09/06/16 09/06/16 11:57 17:58 19:02 WBC RBC Hgb Hct MCV MCH MCHC RDW Plt Count Lymph % (Auto) Mcdonald % (Auto) Lymph # Mcdonald # Baso # Seg Neutrophils % Seg Neuts % (Manual) Lymphocytes % (Manual) Monocytes % (Manual) Eosinophils % (Manual) Basophils % (Manual) Nucleated RBC % Seg Neutrophils # Seg Neutrophils # Man Lymphocytes # (Manual) Monocytes # (Manual) Eosinophils # (Manual) PT INR Fibrinogen dRVVT Confirm Interp Factor V Activity POC ABG pH 7.465 H POC ABG pCO2 32.0 L POC ABG pO2 Sodium Potassium Chloride Carbon Dioxide BUN Creatinine Glucose POC Glucose 165 H 160 H Lactic Acid Calcium Phosphorus Magnesium Direct Bilirubin AST ALT Alkaline Phosphatase Troponin T C-Reactive Protein Total Protein Albumin Prealbumin Triglycerides Cholesterol LDL Cholesterol Direct HDL Cholesterol Urine pH Urine WBC (Auto) Urine Creatinine Urine Total Protein Vancomycin Trough Rheumatoid Factor Complement C4 Miscellaneous Test Crossmatch 09/06/16 09/07/16 09/07/16 23:45 02:47 02:47 WBC RBC Hgb Hct MCV MCH MCHC RDW Plt Count Lymph % (Auto) Mcdonald % (Auto) Lymph # Mcdonald # Baso # Seg Neutrophils % Seg Neuts % (Manual) Lymphocytes % (Manual) Monocytes % (Manual) Eosinophils % (Manual) Basophils % (Manual) Nucleated RBC % Seg Neutrophils # Seg Neutrophils # Man Lymphocytes # (Manual) Monocytes # (Manual) Eosinophils # (Manual) PT INR Fibrinogen dRVVT Confirm Interp Factor V Activity POC ABG pH POC ABG pCO2 POC ABG pO2 Sodium Potassium Chloride Carbon Dioxide BUN Creatinine Glucose POC Glucose 204 H Lactic Acid Calcium Phosphorus Magnesium Direct Bilirubin AST ALT Alkaline Phosphatase Troponin T C-Reactive Protein Total Protein Albumin Prealbumin Triglycerides Cholesterol LDL Cholesterol Direct HDL Cholesterol Urine pH Urine WBC (Auto) 68.0 H Urine Creatinine 106.1 H Urine Total Protein Vancomycin Trough Rheumatoid Factor Complement C4 Miscellaneous Test Crossmatch 09/07/16 09/07/16 09/07/16 04:50 06:19 06:39 WBC RBC Hgb Hct MCV MCH MCHC RDW Plt Count Lymph % (Auto) Mcdonald % (Auto) Lymph # Mcdonald # Baso # Seg Neutrophils % Seg Neuts % (Manual) Lymphocytes % (Manual) Monocytes % (Manual) Eosinophils % (Manual) Basophils % (Manual) Nucleated RBC % Seg Neutrophils # Seg Neutrophils # Man Lymphocytes # (Manual) Monocytes # (Manual) Eosinophils # (Manual) PT INR Fibrinogen dRVVT Confirm Interp Factor V Activity POC ABG pH 7.457 H POC ABG pCO2 32.1 L POC ABG pO2 76 L Sodium 132 L Potassium Chloride 94.7 L Carbon Dioxide BUN 53 H Creatinine 2.9 H Glucose 151 H POC Glucose 149 H Lactic Acid Calcium Phosphorus Magnesium Direct Bilirubin AST ALT Alkaline Phosphatase Troponin T C-Reactive Protein Total Protein Albumin Prealbumin Triglycerides Cholesterol LDL Cholesterol Direct HDL Cholesterol Urine pH Urine WBC (Auto) Urine Creatinine Urine Total Protein Vancomycin Trough Rheumatoid Factor Complement C4 Miscellaneous Test Crossmatch 09/07/16 09/07/16 09/07/16 09:20 11:43 11:43 WBC 19.4 H RBC Hgb 8.3 L Hct 26.4 L D MCV 72 L D MCH 22 L MCHC RDW 17.9 H Plt Count Lymph % (Auto) 8.5 L Mcdonald % (Auto) Lymph # Mcdonald # 1.0 H Baso # Seg Neutrophils % 85.8 H Seg Neuts % (Manual) Lymphocytes % (Manual) Monocytes % (Manual) Eosinophils % (Manual) Basophils % (Manual) Nucleated RBC % Seg Neutrophils # 16.6 H Seg Neutrophils # Man Lymphocytes # (Manual) Monocytes # (Manual) Eosinophils # (Manual) PT INR Fibrinogen dRVVT Confirm Interp Factor V Activity POC ABG pH POC ABG pCO2 POC ABG pO2 Sodium 134 L Potassium Chloride 97.2 L Carbon Dioxide 20 L BUN 58 H Creatinine 2.9 H Glucose 147 H POC Glucose Lactic Acid Calcium Phosphorus 2.40 L Magnesium 2.40 H Direct Bilirubin AST ALT Alkaline Phosphatase Troponin T C-Reactive Protein Total Protein 5.8 L Albumin 2.2 L Prealbumin Triglycerides Cholesterol LDL Cholesterol Direct HDL Cholesterol Urine pH Urine WBC (Auto) Urine Creatinine Urine Total Protein Vancomycin Trough Rheumatoid Factor Complement C4 58 H Miscellaneous Test Crossmatch 09/07/16 09/07/16 09/07/16 11:50 16:00 17:31 WBC RBC Hgb Hct MCV MCH MCHC RDW Plt Count Lymph % (Auto) Mcdonald % (Auto) Lymph # Mcdonald # Baso # Seg Neutrophils % Seg Neuts % (Manual) Lymphocytes % (Manual) Monocytes % (Manual) Eosinophils % (Manual) Basophils % (Manual) Nucleated RBC % Seg Neutrophils # Seg Neutrophils # Man Lymphocytes # (Manual) Monocytes # (Manual) Eosinophils # (Manual) PT INR Fibrinogen dRVVT Confirm Interp Factor V Activity POC ABG pH POC ABG pCO2 POC ABG pO2 158 H Sodium Potassium Chloride Carbon Dioxide BUN Creatinine Glucose POC Glucose 175 H Lactic Acid Calcium Phosphorus Magnesium Direct Bilirubin AST ALT Alkaline Phosphatase Troponin T C-Reactive Protein Total Protein Albumin Prealbumin Triglycerides Cholesterol LDL Cholesterol Direct HDL Cholesterol Urine pH Urine WBC (Auto) Urine Creatinine 66.3 H Urine Total Protein Vancomycin Trough Rheumatoid Factor Complement C4 Miscellaneous Test Crossmatch 09/07/16 09/08/16 09/08/16 23:50 05:46 06:18 WBC 17.8 H RBC 3.58 L Hgb 8.1 L Hct 25.5 L MCV 71 L MCH 23 L MCHC RDW 18.4 H Plt Count Lymph % (Auto) Mcdonald % (Auto) Lymph # Mcdonald # Baso # Seg Neutrophils % Seg Neuts % (Manual) 92.0 H Lymphocytes % (Manual) 6.0 L Monocytes % (Manual) Eosinophils % (Manual) Basophils % (Manual) Nucleated RBC % Seg Neutrophils # Seg Neutrophils # Man 16.4 H Lymphocytes # (Manual) 1.1 L Monocytes # (Manual) Eosinophils # (Manual) PT INR Fibrinogen dRVVT Confirm Interp Factor V Activity POC ABG pH POC ABG pCO2 34.3 L POC ABG pO2 71 L Sodium Potassium Chloride Carbon Dioxide BUN Creatinine Glucose POC Glucose 216 H Lactic Acid Calcium Phosphorus Magnesium Direct Bilirubin AST ALT Alkaline Phosphatase Troponin T C-Reactive Protein Total Protein Albumin Prealbumin Triglycerides Cholesterol LDL Cholesterol Direct HDL Cholesterol Urine pH Urine WBC (Auto) Urine Creatinine Urine Total Protein Vancomycin Trough Rheumatoid Factor Complement C4 Miscellaneous Test Crossmatch 09/08/16 09/08/16 09/08/16 06:18 06:51 10:55 WBC RBC Hgb Hct MCV MCH MCHC RDW Plt Count Lymph % (Auto) Mcdonald % (Auto) Lymph # Mcdonald # Baso # Seg Neutrophils % Seg Neuts % (Manual) Lymphocytes % (Manual) Monocytes % (Manual) Eosinophils % (Manual) Basophils % (Manual) Nucleated RBC % Seg Neutrophils # Seg Neutrophils # Man Lymphocytes # (Manual) Monocytes # (Manual) Eosinophils # (Manual) PT INR Fibrinogen dRVVT Confirm Interp Factor V Activity POC ABG pH POC ABG pCO2 POC ABG pO2 Sodium 133 L Potassium Chloride 96.9 L Carbon Dioxide 20 L BUN 63 H Creatinine 2.7 H Glucose 195 H POC Glucose 204 H 169 H Lactic Acid Calcium Phosphorus Magnesium Direct Bilirubin AST ALT Alkaline Phosphatase Troponin T C-Reactive Protein Total Protein Albumin Prealbumin Triglycerides Cholesterol LDL Cholesterol Direct HDL Cholesterol Urine pH Urine WBC (Auto) Urine Creatinine Urine Total Protein Vancomycin Trough Rheumatoid Factor Complement C4 Miscellaneous Test Crossmatch 09/08/16 09/08/16 09/08/16 11:48 11:48 11:48 WBC RBC Hgb Hct MCV MCH MCHC RDW Plt Count Lymph % (Auto) Mcdonald % (Auto) Lymph # Mcdonald # Baso # Seg Neutrophils % Seg Neuts % (Manual) Lymphocytes % (Manual) Monocytes % (Manual) Eosinophils % (Manual) Basophils % (Manual) Nucleated RBC % Seg Neutrophils # Seg Neutrophils # Man Lymphocytes # (Manual) Monocytes # (Manual) Eosinophils # (Manual) PT INR Fibrinogen 750 H dRVVT Confirm Interp Factor V Activity POC ABG pH POC ABG pCO2 POC ABG pO2 Sodium Potassium Chloride Carbon Dioxide BUN Creatinine Glucose POC Glucose Lactic Acid Calcium Phosphorus Magnesium Direct Bilirubin AST ALT Alkaline Phosphatase Troponin T C-Reactive Protein 15.70 H Total Protein Albumin Prealbumin Triglycerides Cholesterol LDL Cholesterol Direct HDL Cholesterol Urine pH Urine WBC (Auto) Urine Creatinine Urine Total Protein Vancomycin Trough Rheumatoid Factor 24 H Complement C4 Miscellaneous Test Crossmatch 09/08/16 09/08/16 09/09/16 15:35 18:25 00:24 WBC RBC Hgb Hct MCV MCH MCHC RDW Plt Count Lymph % (Auto) Mcdonald % (Auto) Lymph # Mcdonald # Baso # Seg Neutrophils % Seg Neuts % (Manual) Lymphocytes % (Manual) Monocytes % (Manual) Eosinophils % (Manual) Basophils % (Manual) Nucleated RBC % Seg Neutrophils # Seg Neutrophils # Man Lymphocytes # (Manual) Monocytes # (Manual) Eosinophils # (Manual) PT INR Fibrinogen dRVVT Confirm Interp Factor V Activity 182 H POC ABG pH POC ABG pCO2 POC ABG pO2 Sodium Potassium Chloride Carbon Dioxide BUN Creatinine Glucose POC Glucose 184 H 216 H Lactic Acid Calcium Phosphorus Magnesium Direct Bilirubin AST ALT Alkaline Phosphatase Troponin T C-Reactive Protein Total Protein Albumin Prealbumin Triglycerides Cholesterol LDL Cholesterol Direct HDL Cholesterol Urine pH Urine WBC (Auto) Urine Creatinine Urine Total Protein Vancomycin Trough Rheumatoid Factor Complement C4 Miscellaneous Test Crossmatch 09/09/16 09/09/16 09/09/16 03:00 03:00 04:04 WBC 27.9 H RBC Hgb 8.7 L Hct 28.1 L MCV 72 L MCH 22 L MCHC RDW 18.4 H Plt Count 485 H Lymph % (Auto) Mcdonald % (Auto) Lymph # Mcdonald # Baso # Seg Neutrophils % Seg Neuts % (Manual) 77.0 H Lymphocytes % (Manual) 9.0 L Monocytes % (Manual) Eosinophils % (Manual) Basophils % (Manual) Nucleated RBC % Seg Neutrophils # Seg Neutrophils # Man 21.5 H Lymphocytes # (Manual) Monocytes # (Manual) 2.0 H Eosinophils # (Manual) PT INR Fibrinogen dRVVT Confirm Interp Factor V Activity POC ABG pH POC ABG pCO2 POC ABG pO2 121 H Sodium 135 L Potassium Chloride 96.3 L Carbon Dioxide 21 L BUN 83 H Creatinine 3.0 H Glucose 135 H POC Glucose Lactic Acid Calcium Phosphorus Magnesium Direct Bilirubin AST ALT Alkaline Phosphatase Troponin T C-Reactive Protein Total Protein Albumin Prealbumin Triglycerides Cholesterol LDL Cholesterol Direct HDL Cholesterol Urine pH Urine WBC (Auto) Urine Creatinine Urine Total Protein Vancomycin Trough Rheumatoid Factor Complement C4 Miscellaneous Test Crossmatch 09/09/16 09/09/16 09/09/16 05:41 11:55 14:13 WBC RBC Hgb Hct MCV MCH MCHC RDW Plt Count Lymph % (Auto) Mcdonald % (Auto) Lymph # Mcdonald # Baso # Seg Neutrophils % Seg Neuts % (Manual) Lymphocytes % (Manual) Monocytes % (Manual) Eosinophils % (Manual) Basophils % (Manual) Nucleated RBC % Seg Neutrophils # Seg Neutrophils # Man Lymphocytes # (Manual) Monocytes # (Manual) Eosinophils # (Manual) PT INR Fibrinogen dRVVT Confirm Interp Factor V Activity POC ABG pH POC ABG pCO2 POC ABG pO2 Sodium Potassium Chloride Carbon Dioxide BUN Creatinine Glucose POC Glucose 155 H 186 H Lactic Acid Calcium Phosphorus Magnesium Direct Bilirubin AST ALT Alkaline Phosphatase Troponin T C-Reactive Protein Total Protein Albumin Prealbumin Triglycerides Cholesterol LDL Cholesterol Direct HDL Cholesterol Urine pH Urine WBC (Auto) 25.0 H Urine Creatinine Urine Total Protein Vancomycin Trough Rheumatoid Factor Complement C4 Miscellaneous Test Crossmatch 09/09/16 09/09/16 09/10/16 17:33 23:13 05:09 WBC RBC Hgb Hct MCV MCH MCHC RDW Plt Count Lymph % (Auto) Mcdonald % (Auto) Lymph # Mcdonald # Baso # Seg Neutrophils % Seg Neuts % (Manual) Lymphocytes % (Manual) Monocytes % (Manual) Eosinophils % (Manual) Basophils % (Manual) Nucleated RBC % Seg Neutrophils # Seg Neutrophils # Man Lymphocytes # (Manual) Monocytes # (Manual) Eosinophils # (Manual) PT INR Fibrinogen dRVVT Confirm Interp Factor V Activity POC ABG pH POC ABG pCO2 POC ABG pO2 74 L Sodium Potassium Chloride Carbon Dioxide BUN Creatinine Glucose POC Glucose 211 H 215 H Lactic Acid Calcium Phosphorus Magnesium Direct Bilirubin AST ALT Alkaline Phosphatase Troponin T C-Reactive Protein Total Protein Albumin Prealbumin Triglycerides Cholesterol LDL Cholesterol Direct HDL Cholesterol Urine pH Urine WBC (Auto) Urine Creatinine Urine Total Protein Vancomycin Trough Rheumatoid Factor Complement C4 Miscellaneous Test Crossmatch 09/10/16 09/10/16 09/10/16 05:17 05:17 11:31 WBC 15.8 H RBC 3.25 L Hgb 7.3 L Hct 22.9 L MCV 71 L MCH 23 L MCHC RDW 18.4 H Plt Count Lymph % (Auto) Mcdonald % (Auto) Lymph # Mcdonald # Baso # Seg Neutrophils % Seg Neuts % (Manual) 91.0 H Lymphocytes % (Manual) 4.0 L Monocytes % (Manual) Eosinophils % (Manual) Basophils % (Manual) Nucleated RBC % Seg Neutrophils # Seg Neutrophils # Man 14.4 H Lymphocytes # (Manual) 0.6 L Monocytes # (Manual) Eosinophils # (Manual) PT INR Fibrinogen dRVVT Confirm Interp Factor V Activity POC ABG pH POC ABG pCO2 POC ABG pO2 Sodium Potassium Chloride Carbon Dioxide 21 L BUN 93 H Creatinine 2.9 H Glucose 146 H POC Glucose 188 H Lactic Acid Calcium 8.1 L Phosphorus Magnesium Direct Bilirubin AST ALT Alkaline Phosphatase Troponin T C-Reactive Protein Total Protein Albumin Prealbumin Triglycerides Cholesterol LDL Cholesterol Direct HDL Cholesterol Urine pH Urine WBC (Auto) Urine Creatinine Urine Total Protein Vancomycin Trough Rheumatoid Factor Complement C4 Miscellaneous Test Crossmatch 09/10/16 09/10/16 09/10/16 13:17 17:20 23:32 WBC RBC Hgb Hct MCV MCH MCHC RDW Plt Count Lymph % (Auto) Mcdonald % (Auto) Lymph # Mcdonald # Baso # Seg Neutrophils % Seg Neuts % (Manual) Lymphocytes % (Manual) Monocytes % (Manual) Eosinophils % (Manual) Basophils % (Manual) Nucleated RBC % Seg Neutrophils # Seg Neutrophils # Man Lymphocytes # (Manual) Monocytes # (Manual) Eosinophils # (Manual) PT INR Fibrinogen dRVVT Confirm Interp Factor V Activity POC ABG pH POC ABG pCO2 POC ABG pO2 Sodium Potassium Chloride Carbon Dioxide BUN Creatinine Glucose POC Glucose 199 H 186 H Lactic Acid Calcium Phosphorus Magnesium Direct Bilirubin AST ALT Alkaline Phosphatase Troponin T C-Reactive Protein Total Protein Albumin Prealbumin Triglycerides Cholesterol LDL Cholesterol Direct HDL Cholesterol Urine pH Urine WBC (Auto) Urine Creatinine Urine Total Protein Vancomycin Trough Rheumatoid Factor Complement C4 Miscellaneous Test Crossmatch See Detail 09/11/16 09/11/16 09/11/16 05:10 05:10 05:17 WBC 28.4 H RBC Hgb 9.2 L Hct 29.3 L D MCV 73 L MCH 23 L MCHC RDW 18.9 H Plt Count 452 H Lymph % (Auto) Mcdonald % (Auto) Lymph # Mcdonald # Baso # Seg Neutrophils % Seg Neuts % (Manual) 89.5 H Lymphocytes % (Manual) 2.0 L Monocytes % (Manual) Eosinophils % (Manual) Basophils % (Manual) Nucleated RBC % Seg Neutrophils # Seg Neutrophils # Man 25.4 H Lymphocytes # (Manual) 0.6 L Monocytes # (Manual) 1.3 H Eosinophils # (Manual) PT INR Fibrinogen dRVVT Confirm Interp Factor V Activity POC ABG pH POC ABG pCO2 POC ABG pO2 Sodium 136 L Potassium Chloride Carbon Dioxide 18 L BUN 107 H Creatinine 2.6 H Glucose 187 H POC Glucose 230 H Lactic Acid Calcium 8.3 L Phosphorus Magnesium Direct Bilirubin AST ALT Alkaline Phosphatase Troponin T C-Reactive Protein Total Protein Albumin Prealbumin Triglycerides Cholesterol LDL Cholesterol Direct HDL Cholesterol Urine pH Urine WBC (Auto) Urine Creatinine Urine Total Protein Vancomycin Trough Rheumatoid Factor Complement C4 Miscellaneous Test Crossmatch 09/11/16 09/11/16 09/11/16 05:55 12:02 17:32 WBC RBC Hgb Hct MCV MCH MCHC RDW Plt Count Lymph % (Auto) Mcdonald % (Auto) Lymph # Mcdonald # Baso # Seg Neutrophils % Seg Neuts % (Manual) Lymphocytes % (Manual) Monocytes % (Manual) Eosinophils % (Manual) Basophils % (Manual) Nucleated RBC % Seg Neutrophils # Seg Neutrophils # Man Lymphocytes # (Manual) Monocytes # (Manual) Eosinophils # (Manual) PT INR Fibrinogen dRVVT Confirm Interp Factor V Activity POC ABG pH POC ABG pCO2 33.8 L POC ABG pO2 Sodium Potassium Chloride Carbon Dioxide BUN Creatinine Glucose POC Glucose 191 H 239 H Lactic Acid Calcium Phosphorus Magnesium Direct Bilirubin AST ALT Alkaline Phosphatase Troponin T C-Reactive Protein Total Protein Albumin Prealbumin Triglycerides Cholesterol LDL Cholesterol Direct HDL Cholesterol Urine pH Urine WBC (Auto) Urine Creatinine Urine Total Protein Vancomycin Trough Rheumatoid Factor Complement C4 Miscellaneous Test Crossmatch 09/11/16 09/12/16 09/12/16 23:52 05:09 05:32 WBC RBC Hgb Hct MCV MCH MCHC RDW Plt Count Lymph % (Auto) Mcdonald % (Auto) Lymph # Mcdonald # Baso # Seg Neutrophils % Seg Neuts % (Manual) Lymphocytes % (Manual) Monocytes % (Manual) Eosinophils % (Manual) Basophils % (Manual) Nucleated RBC % Seg Neutrophils # Seg Neutrophils # Man Lymphocytes # (Manual) Monocytes # (Manual) Eosinophils # (Manual) PT INR Fibrinogen dRVVT Confirm Interp Factor V Activity POC ABG pH POC ABG pCO2 34.6 L POC ABG pO2 Sodium Potassium Chloride Carbon Dioxide BUN Creatinine Glucose POC Glucose 265 H 184 H Lactic Acid Calcium Phosphorus Magnesium Direct Bilirubin AST ALT Alkaline Phosphatase Troponin T C-Reactive Protein Total Protein Albumin Prealbumin Triglycerides Cholesterol LDL Cholesterol Direct HDL Cholesterol Urine pH Urine WBC (Auto) Urine Creatinine Urine Total Protein Vancomycin Trough Rheumatoid Factor Complement C4 Miscellaneous Test Crossmatch 09/12/16 09/12/16 09/12/16 06:45 06:45 07:22 WBC 31.7 H RBC 3.54 L Hgb 8.3 L Hct 25.9 L MCV 73 L MCH 23 L MCHC RDW 18.9 H Plt Count Lymph % (Auto) Mcdonald % (Auto) Lymph # Mcdonald # Baso # Seg Neutrophils % Seg Neuts % (Manual) 88.5 H Lymphocytes % (Manual) 4.5 L Monocytes % (Manual) Eosinophils % (Manual) Basophils % (Manual) Nucleated RBC % Seg Neutrophils # Seg Neutrophils # Man 28.1 H Lymphocytes # (Manual) Monocytes # (Manual) 1.0 H Eosinophils # (Manual) PT INR Fibrinogen dRVVT Confirm Interp Factor V Activity POC ABG pH POC ABG pCO2 POC ABG pO2 Sodium Potassium Chloride Carbon Dioxide 20 L BUN 115 H Creatinine 2.7 H Glucose 165 H POC Glucose Lactic Acid Calcium 8.0 L Phosphorus Magnesium Direct Bilirubin AST ALT Alkaline Phosphatase Troponin T C-Reactive Protein Total Protein Albumin Prealbumin Triglycerides 217 H Cholesterol LDL Cholesterol Direct HDL Cholesterol Urine pH Urine WBC (Auto) Urine Creatinine Urine Total Protein Vancomycin Trough Rheumatoid Factor Complement C4 Miscellaneous Test Crossmatch 09/12/16 09/12/16 09/12/16 07:22 09:59 12:21 WBC RBC Hgb Hct MCV MCH MCHC RDW Plt Count Lymph % (Auto) Mcdonald % (Auto) Lymph # Mcdonald # Baso # Seg Neutrophils % Seg Neuts % (Manual) Lymphocytes % (Manual) Monocytes % (Manual) Eosinophils % (Manual) Basophils % (Manual) Nucleated RBC % Seg Neutrophils # Seg Neutrophils # Man Lymphocytes # (Manual) Monocytes # (Manual) Eosinophils # (Manual) PT INR Fibrinogen dRVVT Confirm Interp Positive H Factor V Activity POC ABG pH POC ABG pCO2 POC ABG pO2 Sodium Potassium Chloride Carbon Dioxide BUN Creatinine Glucose POC Glucose 224 H Lactic Acid Calcium Phosphorus Magnesium Direct Bilirubin AST ALT Alkaline Phosphatase Troponin T C-Reactive Protein 1.70 H Total Protein Albumin Prealbumin Triglycerides Cholesterol LDL Cholesterol Direct HDL Cholesterol Urine pH Urine WBC (Auto) Urine Creatinine Urine Total Protein Vancomycin Trough Rheumatoid Factor Complement C4 Miscellaneous Test Crossmatch 09/12/16 09/12/16 09/13/16 16:51 23:28 04:00 WBC 45.0 H* RBC Hgb 9.4 L Hct MCV 75 L MCH 23 L MCHC RDW 19.0 H Plt Count 470 H Lymph % (Auto) Mcdonald % (Auto) Lymph # Mcdonald # Baso # Seg Neutrophils % Seg Neuts % (Manual) 89.0 H Lymphocytes % (Manual) 5.0 L Monocytes % (Manual) Eosinophils % (Manual) Basophils % (Manual) Nucleated RBC % Seg Neutrophils # Seg Neutrophils # Man 40.1 H Lymphocytes # (Manual) Monocytes # (Manual) Eosinophils # (Manual) PT INR Fibrinogen dRVVT Confirm Interp Factor V Activity POC ABG pH POC ABG pCO2 POC ABG pO2 Sodium Potassium Chloride Carbon Dioxide BUN Creatinine Glucose POC Glucose 169 H 150 H Lactic Acid Calcium Phosphorus Magnesium Direct Bilirubin AST ALT Alkaline Phosphatase Troponin T C-Reactive Protein Total Protein Albumin Prealbumin Triglycerides Cholesterol LDL Cholesterol Direct HDL Cholesterol Urine pH Urine WBC (Auto) Urine Creatinine Urine Total Protein Vancomycin Trough Rheumatoid Factor Complement C4 Miscellaneous Test Crossmatch 09/13/16 09/13/16 09/13/16 04:00 11:26 17:31 WBC RBC Hgb Hct MCV MCH MCHC RDW Plt Count Lymph % (Auto) Mcdonald % (Auto) Lymph # Mcdonald # Baso # Seg Neutrophils % Seg Neuts % (Manual) Lymphocytes % (Manual) Monocytes % (Manual) Eosinophils % (Manual) Basophils % (Manual) Nucleated RBC % Seg Neutrophils # Seg Neutrophils # Man Lymphocytes # (Manual) Monocytes # (Manual) Eosinophils # (Manual) PT INR Fibrinogen dRVVT Confirm Interp Factor V Activity POC ABG pH POC ABG pCO2 POC ABG pO2 Sodium Potassium Chloride Carbon Dioxide 20 L BUN 116 H Creatinine 3.0 H Glucose 172 H POC Glucose 140 H 183 H Lactic Acid Calcium Phosphorus Magnesium Direct Bilirubin AST ALT Alkaline Phosphatase Troponin T C-Reactive Protein Total Protein 6.2 L Albumin 2.9 L Prealbumin Triglycerides Cholesterol LDL Cholesterol Direct HDL Cholesterol Urine pH Urine WBC (Auto) Urine Creatinine Urine Total Protein Vancomycin Trough Rheumatoid Factor Complement C4 Miscellaneous Test Crossmatch 09/13/16 09/14/16 09/14/16 23:23 04:06 04:07 WBC 29.4 H RBC Hgb 8.9 L Hct 27.3 L MCV 75 L MCH 24 L MCHC RDW 19.1 H Plt Count Lymph % (Auto) Mcdonald % (Auto) Lymph # Mcdonald # Baso # Seg Neutrophils % Seg Neuts % (Manual) 84.0 H Lymphocytes % (Manual) 6.0 L Monocytes % (Manual) 9.0 H Eosinophils % (Manual) Basophils % (Manual) Nucleated RBC % Seg Neutrophils # Seg Neutrophils # Man 24.7 H Lymphocytes # (Manual) Monocytes # (Manual) 2.6 H Eosinophils # (Manual) PT INR Fibrinogen dRVVT Confirm Interp Factor V Activity POC ABG pH 7.342 L POC ABG pCO2 POC ABG pO2 116 H Sodium Potassium Chloride Carbon Dioxide BUN Creatinine Glucose POC Glucose 154 H Lactic Acid Calcium Phosphorus Magnesium Direct Bilirubin AST ALT Alkaline Phosphatase Troponin T C-Reactive Protein Total Protein Albumin Prealbumin Triglycerides Cholesterol LDL Cholesterol Direct HDL Cholesterol Urine pH Urine WBC (Auto) Urine Creatinine Urine Total Protein Vancomycin Trough Rheumatoid Factor Complement C4 Miscellaneous Test Crossmatch 09/14/16 09/14/16 09/14/16 04:07 05:29 12:19 WBC RBC Hgb Hct MCV MCH MCHC RDW Plt Count Lymph % (Auto) Mcdonald % (Auto) Lymph # Mcdonald # Baso # Seg Neutrophils % Seg Neuts % (Manual) Lymphocytes % (Manual) Monocytes % (Manual) Eosinophils % (Manual) Basophils % (Manual) Nucleated RBC % Seg Neutrophils # Seg Neutrophils # Man Lymphocytes # (Manual) Monocytes # (Manual) Eosinophils # (Manual) PT INR Fibrinogen dRVVT Confirm Interp Factor V Activity POC ABG pH POC ABG pCO2 POC ABG pO2 Sodium 136 L Potassium Chloride Carbon Dioxide 18 L BUN 121 H Creatinine 2.8 H Glucose 214 H POC Glucose 239 H 181 H Lactic Acid Calcium Phosphorus Magnesium Direct Bilirubin AST ALT Alkaline Phosphatase Troponin T C-Reactive Protein Total Protein Albumin Prealbumin Triglycerides Cholesterol LDL Cholesterol Direct HDL Cholesterol Urine pH Urine WBC (Auto) Urine Creatinine Urine Total Protein Vancomycin Trough Rheumatoid Factor Complement C4 Miscellaneous Test Crossmatch 09/14/16 09/14/16 09/15/16 18:12 23:37 05:00 WBC 26.1 H RBC 3.05 L Hgb 7.2 L Hct 22.9 L MCV 75 L MCH 24 L MCHC RDW 19.0 H Plt Count Lymph % (Auto) Mcdonald % (Auto) Lymph # Mcdonald # Baso # Seg Neutrophils % Seg Neuts % (Manual) Lymphocytes % (Manual) Monocytes % (Manual) Eosinophils % (Manual) Basophils % (Manual) Nucleated RBC % Seg Neutrophils # Seg Neutrophils # Man Lymphocytes # (Manual) Monocytes # (Manual) Eosinophils # (Manual) PT INR Fibrinogen dRVVT Confirm Interp Factor V Activity POC ABG pH POC ABG pCO2 POC ABG pO2 Sodium Potassium Chloride Carbon Dioxide BUN Creatinine Glucose POC Glucose 266 H 154 H Lactic Acid Calcium Phosphorus Magnesium Direct Bilirubin AST ALT Alkaline Phosphatase Troponin T C-Reactive Protein Total Protein Albumin Prealbumin Triglycerides Cholesterol LDL Cholesterol Direct HDL Cholesterol Urine pH Urine WBC (Auto) Urine Creatinine Urine Total Protein Vancomycin Trough Rheumatoid Factor Complement C4 Miscellaneous Test Crossmatch 09/15/16 09/15/16 09/15/16 05:00 05:17 12:45 WBC RBC Hgb Hct MCV MCH MCHC RDW Plt Count Lymph % (Auto) Mcdonald % (Auto) Lymph # Mcdonald # Baso # Seg Neutrophils % Seg Neuts % (Manual) Lymphocytes % (Manual) Monocytes % (Manual) Eosinophils % (Manual) Basophils % (Manual) Nucleated RBC % Seg Neutrophils # Seg Neutrophils # Man Lymphocytes # (Manual) Monocytes # (Manual) Eosinophils # (Manual) PT INR Fibrinogen dRVVT Confirm Interp Factor V Activity POC ABG pH POC ABG pCO2 POC ABG pO2 Sodium Potassium 5.2 H Chloride Carbon Dioxide 18 L BUN 139 H Creatinine 3.7 H Glucose 227 H POC Glucose 226 H 244 H Lactic Acid Calcium 8.3 L Phosphorus Magnesium Direct Bilirubin AST ALT Alkaline Phosphatase Troponin T C-Reactive Protein Total Protein Albumin Prealbumin Triglycerides Cholesterol LDL Cholesterol Direct HDL Cholesterol Urine pH Urine WBC (Auto) Urine Creatinine Urine Total Protein Vancomycin Trough Rheumatoid Factor Complement C4 Miscellaneous Test Crossmatch 09/15/16 09/15/16 09/15/16 14:32 17:33 23:35 WBC RBC Hgb Hct MCV MCH MCHC RDW Plt Count Lymph % (Auto) Mcdonald % (Auto) Lymph # Mcdonald # Baso # Seg Neutrophils % Seg Neuts % (Manual) Lymphocytes % (Manual) Monocytes % (Manual) Eosinophils % (Manual) Basophils % (Manual) Nucleated RBC % Seg Neutrophils # Seg Neutrophils # Man Lymphocytes # (Manual) Monocytes # (Manual) Eosinophils # (Manual) PT INR Fibrinogen dRVVT Confirm Interp Factor V Activity POC ABG pH POC ABG pCO2 27.7 L POC ABG pO2 120 H Sodium Potassium Chloride Carbon Dioxide BUN Creatinine Glucose POC Glucose 232 H 167 H Lactic Acid Calcium Phosphorus Magnesium Direct Bilirubin AST ALT Alkaline Phosphatase Troponin T C-Reactive Protein Total Protein Albumin Prealbumin Triglycerides Cholesterol LDL Cholesterol Direct HDL Cholesterol Urine pH Urine WBC (Auto) Urine Creatinine Urine Total Protein Vancomycin Trough Rheumatoid Factor Complement C4 Miscellaneous Test Crossmatch 09/16/16 09/16/16 09/16/16 03:58 10:27 10:27 WBC 19.0 H RBC 2.77 L Hgb 6.5 L Hct 20.9 L MCV 76 L MCH 23 L MCHC RDW 19.3 H Plt Count Lymph % (Auto) 11.0 L Mcdonald % (Auto) Lymph # Mcdonald # 1.1 H Baso # Seg Neutrophils % 82.5 H Seg Neuts % (Manual) Lymphocytes % (Manual) Monocytes % (Manual) Eosinophils % (Manual) Basophils % (Manual) Nucleated RBC % Seg Neutrophils # 15.7 H Seg Neutrophils # Man Lymphocytes # (Manual) Monocytes # (Manual) Eosinophils # (Manual) PT INR Fibrinogen dRVVT Confirm Interp Factor V Activity POC ABG pH POC ABG pCO2 POC ABG pO2 Sodium Potassium Chloride 109.3 H Carbon Dioxide 18 L BUN 139 H Creatinine 4.1 H Glucose 144 H POC Glucose 146 H Lactic Acid Calcium 8.1 L Phosphorus Magnesium Direct Bilirubin AST ALT Alkaline Phosphatase Troponin T C-Reactive Protein Total Protein Albumin Prealbumin Triglycerides Cholesterol LDL Cholesterol Direct HDL Cholesterol Urine pH Urine WBC (Auto) Urine Creatinine Urine Total Protein Vancomycin Trough Rheumatoid Factor Complement C4 Miscellaneous Test Crossmatch 09/16/16 09/16/16 09/16/16 12:04 12:10 13:55 WBC RBC Hgb Hct MCV MCH MCHC RDW Plt Count Lymph % (Auto) Mcdonald % (Auto) Lymph # Mcdonald # Baso # Seg Neutrophils % Seg Neuts % (Manual) Lymphocytes % (Manual) Monocytes % (Manual) Eosinophils % (Manual) Basophils % (Manual) Nucleated RBC % Seg Neutrophils # Seg Neutrophils # Man Lymphocytes # (Manual) Monocytes # (Manual) Eosinophils # (Manual) PT INR Fibrinogen dRVVT Confirm Interp Factor V Activity POC ABG pH POC ABG pCO2 32.9 L POC ABG pO2 Sodium Potassium Chloride Carbon Dioxide BUN Creatinine Glucose POC Glucose 185 H Lactic Acid Calcium Phosphorus Magnesium Direct Bilirubin AST ALT Alkaline Phosphatase Troponin T C-Reactive Protein Total Protein Albumin Prealbumin Triglycerides Cholesterol LDL Cholesterol Direct HDL Cholesterol Urine pH Urine WBC (Auto) Urine Creatinine Urine Total Protein Vancomycin Trough Rheumatoid Factor Complement C4 Miscellaneous Test Crossmatch See Detail 09/16/16 09/16/16 09/16/16 17:55 19:19 23:48 WBC RBC Hgb Hct MCV MCH MCHC RDW Plt Count Lymph % (Auto) Mcdonald % (Auto) Lymph # Mcdonald # Baso # Seg Neutrophils % Seg Neuts % (Manual) Lymphocytes % (Manual) Monocytes % (Manual) Eosinophils % (Manual) Basophils % (Manual) Nucleated RBC % Seg Neutrophils # Seg Neutrophils # Man Lymphocytes # (Manual) Monocytes # (Manual) Eosinophils # (Manual) PT INR Fibrinogen dRVVT Confirm Interp Factor V Activity POC ABG pH POC ABG pCO2 POC ABG pO2 Sodium Potassium Chloride Carbon Dioxide BUN Creatinine Glucose POC Glucose 222 H 107 H Lactic Acid Calcium Phosphorus Magnesium Direct Bilirubin AST ALT Alkaline Phosphatase Troponin T C-Reactive Protein Total Protein Albumin Prealbumin Triglycerides Cholesterol LDL Cholesterol Direct HDL Cholesterol Urine pH Urine WBC (Auto) Urine Creatinine 47.4 H Urine Total Protein 16 H Vancomycin Trough Rheumatoid Factor Complement C4 Miscellaneous Test Crossmatch 09/17/16 09/17/16 09/17/16 03:45 03:45 04:55 WBC 19.6 H RBC 3.41 L Hgb 8.5 L Hct 26.7 L MCV 78 L MCH 25 L MCHC RDW 19.9 H Plt Count Lymph % (Auto) 9.3 L Mcdonald % (Auto) Lymph # Mcdonald # 1.2 H Baso # Seg Neutrophils % 83.9 H Seg Neuts % (Manual) Lymphocytes % (Manual) Monocytes % (Manual) Eosinophils % (Manual) Basophils % (Manual) Nucleated RBC % Seg Neutrophils # 16.4 H Seg Neutrophils # Man Lymphocytes # (Manual) Monocytes # (Manual) Eosinophils # (Manual) PT INR Fibrinogen dRVVT Confirm Interp Factor V Activity POC ABG pH POC ABG pCO2 POC ABG pO2 Sodium 146 H Potassium 5.1 H Chloride 110.9 H Carbon Dioxide 16 L BUN 146 H Creatinine 4.0 H Glucose 108 H POC Glucose 133 H Lactic Acid Calcium Phosphorus Magnesium 3.00 H Direct Bilirubin AST ALT Alkaline Phosphatase Troponin T C-Reactive Protein Total Protein Albumin Prealbumin Triglycerides Cholesterol LDL Cholesterol Direct HDL Cholesterol Urine pH Urine WBC (Auto) Urine Creatinine Urine Total Protein Vancomycin Trough Rheumatoid Factor Complement C4 Miscellaneous Test Crossmatch 09/17/16 09/17/16 09/17/16 11:15 17:33 23:47 WBC RBC Hgb Hct MCV MCH MCHC RDW Plt Count Lymph % (Auto) Mcdonald % (Auto) Lymph # Mcdonald # Baso # Seg Neutrophils % Seg Neuts % (Manual) Lymphocytes % (Manual) Monocytes % (Manual) Eosinophils % (Manual) Basophils % (Manual) Nucleated RBC % Seg Neutrophils # Seg Neutrophils # Man Lymphocytes # (Manual) Monocytes # (Manual) Eosinophils # (Manual) PT INR Fibrinogen dRVVT Confirm Interp Factor V Activity POC ABG pH POC ABG pCO2 POC ABG pO2 Sodium Potassium Chloride Carbon Dioxide BUN Creatinine Glucose POC Glucose 176 H 246 H 148 H Lactic Acid Calcium Phosphorus Magnesium Direct Bilirubin AST ALT Alkaline Phosphatase Troponin T C-Reactive Protein Total Protein Albumin Prealbumin Triglycerides Cholesterol LDL Cholesterol Direct HDL Cholesterol Urine pH Urine WBC (Auto) Urine Creatinine Urine Total Protein Vancomycin Trough Rheumatoid Factor Complement C4 Miscellaneous Test Crossmatch 09/18/16 09/18/16 09/18/16 05:33 08:31 08:31 WBC 18.0 H RBC 3.17 L Hgb 9.0 L Hct 25.7 L MCV MCH MCHC 35 H RDW 20.4 H Plt Count Lymph % (Auto) Mcdonald % (Auto) Lymph # Mcdonald # Baso # Seg Neutrophils % Seg Neuts % (Manual) Lymphocytes % (Manual) Monocytes % (Manual) Eosinophils % (Manual) Basophils % (Manual) Nucleated RBC % Seg Neutrophils # Seg Neutrophils # Man Lymphocytes # (Manual) Monocytes # (Manual) Eosinophils # (Manual) PT INR Fibrinogen dRVVT Confirm Interp Factor V Activity POC ABG pH POC ABG pCO2 POC ABG pO2 Sodium Potassium Chloride Carbon Dioxide 15 L BUN 124 H Creatinine 3.8 H Glucose POC Glucose 120 H Lactic Acid Calcium 8.1 L Phosphorus Magnesium Direct Bilirubin AST ALT Alkaline Phosphatase Troponin T C-Reactive Protein Total Protein Albumin Prealbumin Triglycerides Cholesterol LDL Cholesterol Direct HDL Cholesterol Urine pH Urine WBC (Auto) Urine Creatinine Urine Total Protein Vancomycin Trough Rheumatoid Factor Complement C4 Miscellaneous Test Crossmatch 09/18/16 09/18/16 09/18/16 12:03 15:34 17:50 WBC RBC Hgb Hct MCV MCH MCHC RDW Plt Count Lymph % (Auto) Mcdonald % (Auto) Lymph # Mcdonald # Baso # Seg Neutrophils % Seg Neuts % (Manual) Lymphocytes % (Manual) Monocytes % (Manual) Eosinophils % (Manual) Basophils % (Manual) Nucleated RBC % Seg Neutrophils # Seg Neutrophils # Man Lymphocytes # (Manual) Monocytes # (Manual) Eosinophils # (Manual) PT INR Fibrinogen dRVVT Confirm Interp Factor V Activity POC ABG pH POC ABG pCO2 25.7 L POC ABG pO2 66 L Sodium Potassium Chloride Carbon Dioxide BUN Creatinine Glucose POC Glucose 156 H 220 H Lactic Acid Calcium Phosphorus Magnesium Direct Bilirubin AST ALT Alkaline Phosphatase Troponin T C-Reactive Protein Total Protein Albumin Prealbumin Triglycerides Cholesterol LDL Cholesterol Direct HDL Cholesterol Urine pH Urine WBC (Auto) Urine Creatinine Urine Total Protein Vancomycin Trough Rheumatoid Factor Complement C4 Miscellaneous Test Crossmatch 09/19/16 09/19/16 09/19/16 06:21 09:50 09:50 WBC 17.1 H RBC 3.49 L Hgb 9.0 L Hct 28.1 L MCV MCH 26 L MCHC RDW 20.8 H Plt Count Lymph % (Auto) 11.5 L Mcdonald % (Auto) 7.5 H Lymph # Mcdonald # 1.3 H Baso # Seg Neutrophils % 79.8 H Seg Neuts % (Manual) Lymphocytes % (Manual) Monocytes % (Manual) Eosinophils % (Manual) Basophils % (Manual) Nucleated RBC % Seg Neutrophils # 13.7 H Seg Neutrophils # Man Lymphocytes # (Manual) Monocytes # (Manual) Eosinophils # (Manual) PT INR Fibrinogen dRVVT Confirm Interp Factor V Activity POC ABG pH POC ABG pCO2 POC ABG pO2 Sodium Potassium Chloride 108.6 H Carbon Dioxide 15 L BUN 125 H Creatinine 4.1 H Glucose 124 H POC Glucose 119 H Lactic Acid Calcium Phosphorus Magnesium Direct Bilirubin AST ALT Alkaline Phosphatase Troponin T C-Reactive Protein Total Protein Albumin Prealbumin Triglycerides Cholesterol LDL Cholesterol Direct HDL Cholesterol Urine pH Urine WBC (Auto) Urine Creatinine Urine Total Protein Vancomycin Trough Rheumatoid Factor Complement C4 Miscellaneous Test Crossmatch 09/19/16 09/19/16 09/19/16 11:25 17:53 23:36 WBC RBC Hgb Hct MCV MCH MCHC RDW Plt Count Lymph % (Auto) Mcdonald % (Auto) Lymph # Mcdonald # Baso # Seg Neutrophils % Seg Neuts % (Manual) Lymphocytes % (Manual) Monocytes % (Manual) Eosinophils % (Manual) Basophils % (Manual) Nucleated RBC % Seg Neutrophils # Seg Neutrophils # Man Lymphocytes # (Manual) Monocytes # (Manual) Eosinophils # (Manual) PT INR Fibrinogen dRVVT Confirm Interp Factor V Activity POC ABG pH POC ABG pCO2 POC ABG pO2 Sodium Potassium Chloride Carbon Dioxide BUN Creatinine Glucose POC Glucose 160 H 245 H 121 H Lactic Acid Calcium Phosphorus Magnesium Direct Bilirubin AST ALT Alkaline Phosphatase Troponin T C-Reactive Protein Total Protein Albumin Prealbumin Triglycerides Cholesterol LDL Cholesterol Direct HDL Cholesterol Urine pH Urine WBC (Auto) Urine Creatinine Urine Total Protein Vancomycin Trough Rheumatoid Factor Complement C4 Miscellaneous Test Crossmatch 09/20/16 09/20/16 09/20/16 04:10 04:10 04:10 WBC 17.0 H RBC 3.21 L Hgb 8.2 L Hct 25.5 L MCV MCH 26 L MCHC RDW 20.9 H Plt Count Lymph % (Auto) Mcdonald % (Auto) Lymph # Mcdonald # Baso # Seg Neutrophils % Seg Neuts % (Manual) Lymphocytes % (Manual) Monocytes % (Manual) Eosinophils % (Manual) Basophils % (Manual) Nucleated RBC % Seg Neutrophils # Seg Neutrophils # Man Lymphocytes # (Manual) Monocytes # (Manual) Eosinophils # (Manual) PT INR Fibrinogen dRVVT Confirm Interp Factor V Activity POC ABG pH POC ABG pCO2 POC ABG pO2 Sodium Potassium Chloride 111.0 H Carbon Dioxide 16 L BUN 129 H Creatinine 3.7 H Glucose 115 H POC Glucose Lactic Acid Calcium 8.2 L Phosphorus Magnesium Direct Bilirubin AST ALT Alkaline Phosphatase Troponin T C-Reactive Protein Total Protein Albumin Prealbumin Triglycerides 243 H Cholesterol LDL Cholesterol Direct HDL Cholesterol Urine pH Urine WBC (Auto) Urine Creatinine Urine Total Protein Vancomycin Trough Rheumatoid Factor Complement C4 Miscellaneous Test Crossmatch 09/20/16 09/20/16 09/20/16 05:40 11:52 16:50 WBC RBC Hgb Hct MCV MCH MCHC RDW Plt Count Lymph % (Auto) Mcdonald % (Auto) Lymph # Mcdonald # Baso # Seg Neutrophils % Seg Neuts % (Manual) Lymphocytes % (Manual) Monocytes % (Manual) Eosinophils % (Manual) Basophils % (Manual) Nucleated RBC % Seg Neutrophils # Seg Neutrophils # Man Lymphocytes # (Manual) Monocytes # (Manual) Eosinophils # (Manual) PT INR Fibrinogen dRVVT Confirm Interp Factor V Activity POC ABG pH POC ABG pCO2 POC ABG pO2 Sodium Potassium Chloride Carbon Dioxide BUN Creatinine Glucose POC Glucose 131 H 183 H 236 H Lactic Acid Calcium Phosphorus Magnesium Direct Bilirubin AST ALT Alkaline Phosphatase Troponin T C-Reactive Protein Total Protein Albumin Prealbumin Triglycerides Cholesterol LDL Cholesterol Direct HDL Cholesterol Urine pH Urine WBC (Auto) Urine Creatinine Urine Total Protein Vancomycin Trough Rheumatoid Factor Complement C4 Miscellaneous Test Crossmatch 09/20/16 09/21/16 09/21/16 23:51 03:30 04:44 WBC RBC Hgb Hct MCV MCH MCHC RDW Plt Count Lymph % (Auto) Mcdonald % (Auto) Lymph # Mcdonald # Baso # Seg Neutrophils % Seg Neuts % (Manual) Lymphocytes % (Manual) Monocytes % (Manual) Eosinophils % (Manual) Basophils % (Manual) Nucleated RBC % Seg Neutrophils # Seg Neutrophils # Man Lymphocytes # (Manual) Monocytes # (Manual) Eosinophils # (Manual) PT INR Fibrinogen dRVVT Confirm Interp Factor V Activity POC ABG pH POC ABG pCO2 POC ABG pO2 Sodium Potassium Chloride Carbon Dioxide BUN Creatinine Glucose POC Glucose 114 H 141 H Lactic Acid Calcium Phosphorus Magnesium 2.70 H Direct Bilirubin AST ALT Alkaline Phosphatase Troponin T C-Reactive Protein Total Protein Albumin Prealbumin Triglycerides Cholesterol LDL Cholesterol Direct HDL Cholesterol Urine pH Urine WBC (Auto) Urine Creatinine Urine Total Protein Vancomycin Trough Rheumatoid Factor Complement C4 Miscellaneous Test Crossmatch 09/21/16 09/21/16 09/21/16 07:45 07:45 10:01 WBC 13.8 H RBC 2.94 L Hgb 7.5 L Hct 23.5 L MCV MCH 26 L MCHC RDW 21.2 H Plt Count Lymph % (Auto) 6.9 L Mcdonald % (Auto) 9.4 H Lymph # 0.9 L Mcdonald # 1.3 H Baso # Seg Neutrophils % 83.2 H Seg Neuts % (Manual) Lymphocytes % (Manual) Monocytes % (Manual) Eosinophils % (Manual) Basophils % (Manual) Nucleated RBC % Seg Neutrophils # 11.5 H Seg Neutrophils # Man Lymphocytes # (Manual) Monocytes # (Manual) Eosinophils # (Manual) PT INR Fibrinogen dRVVT Confirm Interp Factor V Activity POC ABG pH 7.308 L POC ABG pCO2 31.9 L POC ABG pO2 148 H Sodium 147 H Potassium Chloride 114.2 H Carbon Dioxide 15 L BUN 120 H Creatinine 3.9 H Glucose 156 H POC Glucose Lactic Acid Calcium 8.2 L Phosphorus Magnesium Direct Bilirubin AST ALT Alkaline Phosphatase Troponin T C-Reactive Protein Total Protein Albumin Prealbumin Triglycerides Cholesterol LDL Cholesterol Direct HDL Cholesterol Urine pH Urine WBC (Auto) Urine Creatinine Urine Total Protein Vancomycin Trough Rheumatoid Factor Complement C4 Miscellaneous Test Crossmatch 09/21/16 09/21/16 09/21/16 12:00 12:03 13:00 WBC RBC Hgb Hct MCV MCH MCHC RDW Plt Count Lymph % (Auto) Mcdonald % (Auto) Lymph # Mcdonald # Baso # Seg Neutrophils % Seg Neuts % (Manual) Lymphocytes % (Manual) Monocytes % (Manual) Eosinophils % (Manual) Basophils % (Manual) Nucleated RBC % Seg Neutrophils # Seg Neutrophils # Man Lymphocytes # (Manual) Monocytes # (Manual) Eosinophils # (Manual) PT INR Fibrinogen dRVVT Confirm Interp Factor V Activity POC ABG pH POC ABG pCO2 POC ABG pO2 Sodium Potassium Chloride Carbon Dioxide BUN Creatinine Glucose POC Glucose 163 H Lactic Acid Calcium Phosphorus Magnesium Direct Bilirubin AST ALT Alkaline Phosphatase Troponin T C-Reactive Protein Total Protein Albumin Prealbumin Triglycerides Cholesterol LDL Cholesterol Direct HDL Cholesterol Urine pH Urine WBC (Auto) Urine Creatinine 54.8 H Urine Total Protein Vancomycin Trough 2.3 L Rheumatoid Factor Complement C4 Miscellaneous Test Crossmatch 09/21/16 09/21/16 09/22/16 16:51 23:17 06:27 WBC RBC Hgb Hct MCV MCH MCHC RDW Plt Count Lymph % (Auto) Mcdonald % (Auto) Lymph # Mcdonald # Baso # Seg Neutrophils % Seg Neuts % (Manual) Lymphocytes % (Manual) Monocytes % (Manual) Eosinophils % (Manual) Basophils % (Manual) Nucleated RBC % Seg Neutrophils # Seg Neutrophils # Man Lymphocytes # (Manual) Monocytes # (Manual) Eosinophils # (Manual) PT INR Fibrinogen dRVVT Confirm Interp Factor V Activity POC ABG pH POC ABG pCO2 POC ABG pO2 Sodium Potassium Chloride Carbon Dioxide BUN Creatinine Glucose POC Glucose 206 H 114 H 115 H Lactic Acid Calcium Phosphorus Magnesium Direct Bilirubin AST ALT Alkaline Phosphatase Troponin T C-Reactive Protein Total Protein Albumin Prealbumin Triglycerides Cholesterol LDL Cholesterol Direct HDL Cholesterol Urine pH Urine WBC (Auto) Urine Creatinine Urine Total Protein Vancomycin Trough Rheumatoid Factor Complement C4 Miscellaneous Test Crossmatch 09/22/16 09/22/16 09/22/16 07:50 07:50 12:00 WBC 17.8 H RBC 3.04 L Hgb 8.0 L Hct 24.7 L MCV MCH 26 L MCHC RDW 21.6 H Plt Count Lymph % (Auto) Mcdonald % (Auto) Lymph # Mcdonald # Baso # Seg Neutrophils % Seg Neuts % (Manual) Lymphocytes % (Manual) Monocytes % (Manual) Eosinophils % (Manual) Basophils % (Manual) Nucleated RBC % Seg Neutrophils # Seg Neutrophils # Man Lymphocytes # (Manual) Monocytes # (Manual) Eosinophils # (Manual) PT INR Fibrinogen dRVVT Confirm Interp Factor V Activity POC ABG pH POC ABG pCO2 POC ABG pO2 Sodium 150 H Potassium Chloride 118.2 H Carbon Dioxide 14 L BUN 111 H Creatinine 3.7 H Glucose 157 H POC Glucose 183 H Lactic Acid Calcium Phosphorus Magnesium Direct Bilirubin AST ALT Alkaline Phosphatase Troponin T C-Reactive Protein Total Protein Albumin Prealbumin Triglycerides Cholesterol LDL Cholesterol Direct HDL Cholesterol Urine pH Urine WBC (Auto) Urine Creatinine Urine Total Protein Vancomycin Trough Rheumatoid Factor Complement C4 Miscellaneous Test Crossmatch 09/22/16 09/22/16 09/23/16 17:29 23:10 05:00 WBC 19.2 H RBC 3.13 L Hgb 8.0 L Hct 25.2 L MCV MCH 26 L MCHC RDW 22.1 H Plt Count Lymph % (Auto) Mcdonald % (Auto) Lymph # Mcdonald # Baso # Seg Neutrophils % Seg Neuts % (Manual) 92.0 H Lymphocytes % (Manual) 3.0 L Monocytes % (Manual) Eosinophils % (Manual) Basophils % (Manual) Nucleated RBC % Seg Neutrophils # Seg Neutrophils # Man 17.7 H Lymphocytes # (Manual) 0.6 L Monocytes # (Manual) Eosinophils # (Manual) PT INR Fibrinogen dRVVT Confirm Interp Factor V Activity POC ABG pH POC ABG pCO2 POC ABG pO2 Sodium Potassium Chloride Carbon Dioxide BUN Creatinine Glucose POC Glucose 197 H 169 H Lactic Acid Calcium Phosphorus Magnesium Direct Bilirubin AST ALT Alkaline Phosphatase Troponin T C-Reactive Protein Total Protein Albumin Prealbumin Triglycerides Cholesterol LDL Cholesterol Direct HDL Cholesterol Urine pH Urine WBC (Auto) Urine Creatinine Urine Total Protein Vancomycin Trough Rheumatoid Factor Complement C4 Miscellaneous Test Crossmatch 09/23/16 09/23/16 09/23/16 05:00 05:00 05:10 WBC RBC Hgb Hct MCV MCH MCHC RDW Plt Count Lymph % (Auto) Mcdonald % (Auto) Lymph # Mcdonald # Baso # Seg Neutrophils % Seg Neuts % (Manual) Lymphocytes % (Manual) Monocytes % (Manual) Eosinophils % (Manual) Basophils % (Manual) Nucleated RBC % Seg Neutrophils # Seg Neutrophils # Man Lymphocytes # (Manual) Monocytes # (Manual) Eosinophils # (Manual) PT INR Fibrinogen dRVVT Confirm Interp Factor V Activity POC ABG pH POC ABG pCO2 POC ABG pO2 Sodium 147 H Potassium 3.2 L Chloride 115.7 H Carbon Dioxide 13 L BUN 111 H Creatinine 3.8 H Glucose 194 H POC Glucose 188 H Lactic Acid Calcium 7.3 L D Phosphorus Magnesium Direct Bilirubin AST ALT Alkaline Phosphatase Troponin T C-Reactive Protein 3.20 H Total Protein Albumin Prealbumin Triglycerides Cholesterol LDL Cholesterol Direct HDL Cholesterol Urine pH Urine WBC (Auto) Urine Creatinine Urine Total Protein Vancomycin Trough Rheumatoid Factor Complement C4 Miscellaneous Test Crossmatch 09/23/16 09/23/16 09/23/16 11:37 12:29 18:01 WBC RBC Hgb Hct MCV MCH MCHC RDW Plt Count Lymph % (Auto) Mcdonald % (Auto) Lymph # Mcdonald # Baso # Seg Neutrophils % Seg Neuts % (Manual) Lymphocytes % (Manual) Monocytes % (Manual) Eosinophils % (Manual) Basophils % (Manual) Nucleated RBC % Seg Neutrophils # Seg Neutrophils # Man Lymphocytes # (Manual) Monocytes # (Manual) Eosinophils # (Manual) PT INR Fibrinogen dRVVT Confirm Interp Factor V Activity POC ABG pH POC ABG pCO2 18.9 L POC ABG pO2 143 H Sodium Potassium Chloride Carbon Dioxide BUN Creatinine Glucose POC Glucose 153 H 108 H Lactic Acid Calcium Phosphorus Magnesium Direct Bilirubin AST ALT Alkaline Phosphatase Troponin T C-Reactive Protein Total Protein Albumin Prealbumin Triglycerides Cholesterol LDL Cholesterol Direct HDL Cholesterol Urine pH Urine WBC (Auto) Urine Creatinine Urine Total Protein Vancomycin Trough Rheumatoid Factor Complement C4 Miscellaneous Test Crossmatch 09/23/16 09/23/16 09/24/16 21:19 23:43 05:16 WBC RBC Hgb Hct MCV MCH MCHC RDW Plt Count Lymph % (Auto) Mcdonald % (Auto) Lymph # Mcdonald # Baso # Seg Neutrophils % Seg Neuts % (Manual) Lymphocytes % (Manual) Monocytes % (Manual) Eosinophils % (Manual) Basophils % (Manual) Nucleated RBC % Seg Neutrophils # Seg Neutrophils # Man Lymphocytes # (Manual) Monocytes # (Manual) Eosinophils # (Manual) PT INR Fibrinogen dRVVT Confirm Interp Factor V Activity POC ABG pH POC ABG pCO2 17.3 L POC ABG pO2 112 H Sodium Potassium Chloride Carbon Dioxide BUN Creatinine Glucose POC Glucose 143 H 164 H Lactic Acid Calcium Phosphorus Magnesium Direct Bilirubin AST ALT Alkaline Phosphatase Troponin T C-Reactive Protein Total Protein Albumin Prealbumin Triglycerides Cholesterol LDL Cholesterol Direct HDL Cholesterol Urine pH Urine WBC (Auto) Urine Creatinine Urine Total Protein Vancomycin Trough Rheumatoid Factor Complement C4 Miscellaneous Test Crossmatch 09/24/16 09/24/16 09/24/16 05:21 11:58 17:06 WBC RBC Hgb Hct MCV MCH MCHC RDW Plt Count Lymph % (Auto) Mcdonald % (Auto) Lymph # Mcdonald # Baso # Seg Neutrophils % Seg Neuts % (Manual) Lymphocytes % (Manual) Monocytes % (Manual) Eosinophils % (Manual) Basophils % (Manual) Nucleated RBC % Seg Neutrophils # Seg Neutrophils # Man Lymphocytes # (Manual) Monocytes # (Manual) Eosinophils # (Manual) PT INR Fibrinogen dRVVT Confirm Interp Factor V Activity POC ABG pH POC ABG pCO2 POC ABG pO2 Sodium Potassium Chloride Carbon Dioxide 10 L BUN 103 H Creatinine 4.3 H Glucose 163 H POC Glucose 173 H 167 H Lactic Acid Calcium 6.5 L Phosphorus Magnesium Direct Bilirubin AST ALT Alkaline Phosphatase Troponin T C-Reactive Protein Total Protein Albumin Prealbumin Triglycerides Cholesterol LDL Cholesterol Direct HDL Cholesterol Urine pH Urine WBC (Auto) Urine Creatinine Urine Total Protein Vancomycin Trough Rheumatoid Factor Complement C4 Miscellaneous Test Crossmatch 09/24/16 09/24/16 09/24/16 20:15 21:02 23:48 WBC RBC Hgb Hct MCV MCH MCHC RDW Plt Count Lymph % (Auto) Mcdonald % (Auto) Lymph # Mcdonald # Baso # Seg Neutrophils % Seg Neuts % (Manual) Lymphocytes % (Manual) Monocytes % (Manual) Eosinophils % (Manual) Basophils % (Manual) Nucleated RBC % Seg Neutrophils # Seg Neutrophils # Man Lymphocytes # (Manual) Monocytes # (Manual) Eosinophils # (Manual) PT INR Fibrinogen dRVVT Confirm Interp Factor V Activity POC ABG pH 7.288 L POC ABG pCO2 30.2 L 21.5 L POC ABG pO2 32 L 39 L Sodium Potassium Chloride Carbon Dioxide BUN Creatinine Glucose POC Glucose 109 H Lactic Acid Calcium Phosphorus Magnesium Direct Bilirubin AST ALT Alkaline Phosphatase Troponin T C-Reactive Protein Total Protein Albumin Prealbumin Triglycerides Cholesterol LDL Cholesterol Direct HDL Cholesterol Urine pH Urine WBC (Auto) Urine Creatinine Urine Total Protein Vancomycin Trough Rheumatoid Factor Complement C4 Miscellaneous Test Crossmatch 09/25/16 09/25/16 09/25/16 04:20 04:20 04:20 WBC RBC 2.58 L Hgb 7.0 L Hct 21.0 L MCV MCH 27 L MCHC RDW 23.8 H Plt Count Lymph % (Auto) Mcdonald % (Auto) Lymph # Mcdonald # Baso # Seg Neutrophils % Seg Neuts % (Manual) Lymphocytes % (Manual) 12.0 L Monocytes % (Manual) Eosinophils % (Manual) 7.0 H Basophils % (Manual) 2.0 H Nucleated RBC % Seg Neutrophils # Seg Neutrophils # Man Lymphocytes # (Manual) 0.9 L Monocytes # (Manual) Eosinophils # (Manual) 0.5 H PT INR Fibrinogen dRVVT Confirm Interp Factor V Activity POC ABG pH POC ABG pCO2 POC ABG pO2 Sodium Potassium Chloride Carbon Dioxide 15 L BUN 72 H Creatinine 3.8 H Glucose POC Glucose Lactic Acid Calcium 6.0 L Phosphorus 4.60 H Magnesium 1.60 L Direct Bilirubin AST ALT Alkaline Phosphatase Troponin T C-Reactive Protein Total Protein Albumin Prealbumin Triglycerides Cholesterol LDL Cholesterol Direct HDL Cholesterol Urine pH Urine WBC (Auto) Urine Creatinine Urine Total Protein Vancomycin Trough Rheumatoid Factor Complement C4 Miscellaneous Test Crossmatch 09/25/16 09/25/16 09/25/16 04:57 08:02 10:30 WBC RBC Hgb Hct MCV MCH MCHC RDW Plt Count Lymph % (Auto) Mcdonald % (Auto) Lymph # Mcdonald # Baso # Seg Neutrophils % Seg Neuts % (Manual) Lymphocytes % (Manual) Monocytes % (Manual) Eosinophils % (Manual) Basophils % (Manual) Nucleated RBC % Seg Neutrophils # Seg Neutrophils # Man Lymphocytes # (Manual) Monocytes # (Manual) Eosinophils # (Manual) PT INR Fibrinogen dRVVT Confirm Interp Factor V Activity POC ABG pH POC ABG pCO2 24.7 L POC ABG pO2 152 H Sodium Potassium Chloride Carbon Dioxide BUN Creatinine Glucose POC Glucose 113 H Lactic Acid Calcium Phosphorus Magnesium Direct Bilirubin AST ALT Alkaline Phosphatase Troponin T C-Reactive Protein Total Protein Albumin Prealbumin Triglycerides Cholesterol LDL Cholesterol Direct HDL Cholesterol Urine pH Urine WBC (Auto) Urine Creatinine Urine Total Protein Vancomycin Trough Rheumatoid Factor Complement C4 Miscellaneous Test Crossmatch See Detail 09/25/16 09/25/16 09/25/16 12:05 17:44 23:47 WBC RBC Hgb Hct MCV MCH MCHC RDW Plt Count Lymph % (Auto) Mcdonald % (Auto) Lymph # Mcdonald # Baso # Seg Neutrophils % Seg Neuts % (Manual) Lymphocytes % (Manual) Monocytes % (Manual) Eosinophils % (Manual) Basophils % (Manual) Nucleated RBC % Seg Neutrophils # Seg Neutrophils # Man Lymphocytes # (Manual) Monocytes # (Manual) Eosinophils # (Manual) PT INR Fibrinogen dRVVT Confirm Interp Factor V Activity POC ABG pH POC ABG pCO2 POC ABG pO2 Sodium Potassium Chloride Carbon Dioxide BUN Creatinine Glucose POC Glucose 117 H 119 H 150 H Lactic Acid Calcium Phosphorus Magnesium Direct Bilirubin AST ALT Alkaline Phosphatase Troponin T C-Reactive Protein Total Protein Albumin Prealbumin Triglycerides Cholesterol LDL Cholesterol Direct HDL Cholesterol Urine pH Urine WBC (Auto) Urine Creatinine Urine Total Protein Vancomycin Trough Rheumatoid Factor Complement C4 Miscellaneous Test Crossmatch 09/26/16 09/26/16 09/26/16 04:25 04:25 04:25 WBC RBC 2.65 L Hgb 7.4 L Hct 21.6 L MCV MCH MCHC RDW 22.5 H Plt Count Lymph % (Auto) Mcdonald % (Auto) Lymph # Mcdonald # Baso # Seg Neutrophils % Seg Neuts % (Manual) Lymphocytes % (Manual) 6.0 L Monocytes % (Manual) Eosinophils % (Manual) 11.0 H Basophils % (Manual) Nucleated RBC % Seg Neutrophils # Seg Neutrophils # Man Lymphocytes # (Manual) 0.4 L Monocytes # (Manual) Eosinophils # (Manual) 0.6 H PT INR Fibrinogen dRVVT Confirm Interp Factor V Activity POC ABG pH POC ABG pCO2 POC ABG pO2 Sodium Potassium Chloride 97.0 L Carbon Dioxide 19 L BUN 43 H Creatinine 2.6 H Glucose 130 H POC Glucose Lactic Acid 4.40 H* Calcium 6.7 L Phosphorus Magnesium Direct Bilirubin AST ALT Alkaline Phosphatase Troponin T C-Reactive Protein Total Protein Albumin Prealbumin Triglycerides Cholesterol LDL Cholesterol Direct HDL Cholesterol Urine pH Urine WBC (Auto) Urine Creatinine Urine Total Protein Vancomycin Trough Rheumatoid Factor Complement C4 Miscellaneous Test Crossmatch 09/26/16 09/26/16 09/26/16 05:20 11:44 12:12 WBC RBC Hgb Hct MCV MCH MCHC RDW Plt Count Lymph % (Auto) Mcdonald % (Auto) Lymph # Mcdonald # Baso # Seg Neutrophils % Seg Neuts % (Manual) Lymphocytes % (Manual) Monocytes % (Manual) Eosinophils % (Manual) Basophils % (Manual) Nucleated RBC % Seg Neutrophils # Seg Neutrophils # Man Lymphocytes # (Manual) Monocytes # (Manual) Eosinophils # (Manual) PT INR Fibrinogen dRVVT Confirm Interp Factor V Activity POC ABG pH POC ABG pCO2 27.0 L POC ABG pO2 69 L Sodium Potassium Chloride Carbon Dioxide BUN Creatinine Glucose POC Glucose 121 H 128 H Lactic Acid Calcium Phosphorus Magnesium Direct Bilirubin AST ALT Alkaline Phosphatase Troponin T C-Reactive Protein Total Protein Albumin Prealbumin Triglycerides Cholesterol LDL Cholesterol Direct HDL Cholesterol Urine pH Urine WBC (Auto) Urine Creatinine Urine Total Protein Vancomycin Trough Rheumatoid Factor Complement C4 Miscellaneous Test Crossmatch 09/26/16 09/26/16 09/27/16 18:31 23:40 08:20 WBC RBC Hgb Hct MCV MCH MCHC RDW Plt Count Lymph % (Auto) Mcdonald % (Auto) Lymph # Mcdonald # Baso # Seg Neutrophils % Seg Neuts % (Manual) Lymphocytes % (Manual) Monocytes % (Manual) Eosinophils % (Manual) Basophils % (Manual) Nucleated RBC % Seg Neutrophils # Seg Neutrophils # Man Lymphocytes # (Manual) Monocytes # (Manual) Eosinophils # (Manual) PT INR Fibrinogen dRVVT Confirm Interp Factor V Activity POC ABG pH POC ABG pCO2 POC ABG pO2 Sodium Potassium Chloride Carbon Dioxide BUN Creatinine Glucose POC Glucose 120 H 133 H Lactic Acid 4.10 H* Calcium Phosphorus Magnesium Direct Bilirubin AST ALT Alkaline Phosphatase Troponin T C-Reactive Protein Total Protein Albumin Prealbumin Triglycerides Cholesterol LDL Cholesterol Direct HDL Cholesterol Urine pH Urine WBC (Auto) Urine Creatinine Urine Total Protein Vancomycin Trough Rheumatoid Factor Complement C4 Miscellaneous Test Crossmatch 09/27/16 09/27/16 09/27/16 11:23 15:00 18:15 WBC RBC Hgb Hct MCV MCH MCHC RDW Plt Count Lymph % (Auto) Mcdonald % (Auto) Lymph # Mcdonald # Baso # Seg Neutrophils % Seg Neuts % (Manual) Lymphocytes % (Manual) Monocytes % (Manual) Eosinophils % (Manual) Basophils % (Manual) Nucleated RBC % Seg Neutrophils # Seg Neutrophils # Man Lymphocytes # (Manual) Monocytes # (Manual) Eosinophils # (Manual) PT INR Fibrinogen dRVVT Confirm Interp Factor V Activity POC ABG pH 7.459 H POC ABG pCO2 27.1 L POC ABG pO2 140 H Sodium Potassium Chloride Carbon Dioxide BUN Creatinine Glucose POC Glucose 114 H 127 H Lactic Acid Calcium Phosphorus Magnesium Direct Bilirubin AST ALT Alkaline Phosphatase Troponin T C-Reactive Protein Total Protein Albumin Prealbumin Triglycerides Cholesterol LDL Cholesterol Direct HDL Cholesterol Urine pH Urine WBC (Auto) Urine Creatinine Urine Total Protein Vancomycin Trough Rheumatoid Factor Complement C4 Miscellaneous Test Crossmatch 09/27/16 09/27/16 09/28/16 Unknown Unknown 03:45 WBC RBC 2.49 L Hgb 6.8 L Hct 20.7 L MCV MCH 27 L MCHC RDW 22.1 H Plt Count Lymph % (Auto) Mcdonald % (Auto) Lymph # Mcdonald # Baso # Seg Neutrophils % Seg Neuts % (Manual) 32.0 L Lymphocytes % (Manual) 12.0 L Monocytes % (Manual) 11.0 H Eosinophils % (Manual) 10.0 H Basophils % (Manual) Nucleated RBC % Seg Neutrophils # Seg Neutrophils # Man Lymphocytes # (Manual) 1.0 L Monocytes # (Manual) 0.9 H Eosinophils # (Manual) 0.8 H PT INR Fibrinogen dRVVT Confirm Interp Factor V Activity POC ABG pH POC ABG pCO2 POC ABG pO2 Sodium 135 L 135 L Potassium 3.5 L Chloride 93.6 L 94.4 L Carbon Dioxide 17 L 21 L BUN 45 H 28 H Creatinine 3.3 H 2.5 H Glucose 106 H POC Glucose Lactic Acid Calcium 7.3 L 7.1 L Phosphorus Magnesium Direct Bilirubin AST ALT Alkaline Phosphatase Troponin T C-Reactive Protein Total Protein Albumin Prealbumin Triglycerides Cholesterol LDL Cholesterol Direct HDL Cholesterol Urine pH Urine WBC (Auto) Urine Creatinine Urine Total Protein Vancomycin Trough Rheumatoid Factor Complement C4 Miscellaneous Test Crossmatch 09/28/16 09/28/16 09/28/16 03:45 07:25 11:58 WBC 13.3 H RBC 3.01 L Hgb 8.4 L Hct 25.0 L MCV MCH MCHC RDW 20.5 H Plt Count 128 L Lymph % (Auto) Mcdonald % (Auto) Lymph # Mcdonald # Baso # Seg Neutrophils % Seg Neuts % (Manual) Lymphocytes % (Manual) 7.0 L Monocytes % (Manual) Eosinophils % (Manual) 6.0 H Basophils % (Manual) Nucleated RBC % Seg Neutrophils # Seg Neutrophils # Man Lymphocytes # (Manual) 0.9 L Monocytes # (Manual) Eosinophils # (Manual) 0.8 H PT INR Fibrinogen dRVVT Confirm Interp Factor V Activity POC ABG pH POC ABG pCO2 POC ABG pO2 Sodium Potassium Chloride Carbon Dioxide BUN Creatinine Glucose POC Glucose 121 H Lactic Acid 4.50 H* Calcium Phosphorus Magnesium Direct Bilirubin AST ALT Alkaline Phosphatase Troponin T C-Reactive Protein Total Protein Albumin Prealbumin Triglycerides Cholesterol LDL Cholesterol Direct HDL Cholesterol Urine pH Urine WBC (Auto) Urine Creatinine Urine Total Protein Vancomycin Trough Rheumatoid Factor Complement C4 Miscellaneous Test Crossmatch 09/29/16 09/29/16 09/29/16 06:45 06:45 06:45 WBC 14.9 H RBC 2.74 L Hgb 7.6 L Hct 23.2 L MCV MCH MCHC RDW 20.5 H Plt Count 81 L Lymph % (Auto) Mcdonald % (Auto) Lymph # Mcdonald # Baso # Seg Neutrophils % Seg Neuts % (Manual) 81.0 H Lymphocytes % (Manual) 4.0 L Monocytes % (Manual) Eosinophils % (Manual) Basophils % (Manual) Nucleated RBC % Seg Neutrophils # Seg Neutrophils # Man 12.1 H Lymphocytes # (Manual) 0.6 L Monocytes # (Manual) Eosinophils # (Manual) PT INR Fibrinogen dRVVT Confirm Interp Factor V Activity POC ABG pH POC ABG pCO2 POC ABG pO2 Sodium 133 L Potassium 3.4 L Chloride 92.5 L Carbon Dioxide 21 L BUN 33 H Creatinine 3.0 H Glucose POC Glucose Lactic Acid Calcium 6.6 L Phosphorus Magnesium 1.40 L Direct Bilirubin 0.9 H AST ALT Alkaline Phosphatase Troponin T C-Reactive Protein Total Protein 4.3 L Albumin 1.3 L Prealbumin Triglycerides Cholesterol LDL Cholesterol Direct HDL Cholesterol Urine pH Urine WBC (Auto) Urine Creatinine Urine Total Protein Vancomycin Trough Rheumatoid Factor Complement C4 Miscellaneous Test Crossmatch 09/29/16 09/29/16 09/30/16 17:52 20:12 00:07 WBC RBC Hgb Hct MCV MCH MCHC RDW Plt Count Lymph % (Auto) Mcdonald % (Auto) Lymph # Mcdonald # Baso # Seg Neutrophils % Seg Neuts % (Manual) Lymphocytes % (Manual) Monocytes % (Manual) Eosinophils % (Manual) Basophils % (Manual) Nucleated RBC % Seg Neutrophils # Seg Neutrophils # Man Lymphocytes # (Manual) Monocytes # (Manual) Eosinophils # (Manual) PT INR Fibrinogen dRVVT Confirm Interp Factor V Activity POC ABG pH POC ABG pCO2 POC ABG pO2 Sodium Potassium Chloride Carbon Dioxide BUN Creatinine Glucose POC Glucose 50 L 51 L Lactic Acid Calcium Phosphorus Magnesium Direct Bilirubin AST ALT Alkaline Phosphatase Troponin T 0.204 H* C-Reactive Protein Total Protein Albumin Prealbumin Triglycerides Cholesterol 31 L LDL Cholesterol Direct 4 L HDL Cholesterol 3 L Urine pH Urine WBC (Auto) Urine Creatinine Urine Total Protein Vancomycin Trough Rheumatoid Factor Complement C4 Miscellaneous Test Crossmatch 09/30/16 09/30/16 09/30/16 01:30 05:15 06:10 WBC RBC Hgb Hct MCV MCH MCHC RDW Plt Count Lymph % (Auto) Mcdonald % (Auto) Lymph # Mcdonald # Baso # Seg Neutrophils % Seg Neuts % (Manual) Lymphocytes % (Manual) Monocytes % (Manual) Eosinophils % (Manual) Basophils % (Manual) Nucleated RBC % Seg Neutrophils # Seg Neutrophils # Man Lymphocytes # (Manual) Monocytes # (Manual) Eosinophils # (Manual) PT INR Fibrinogen dRVVT Confirm Interp Factor V Activity POC ABG pH POC ABG pCO2 POC ABG pO2 Sodium 133 L Potassium 3.2 L Chloride 93.2 L Carbon Dioxide 19 L BUN 36 H Creatinine 3.2 H Glucose 104 H POC Glucose 167 H 146 H Lactic Acid Calcium 6.4 L Phosphorus Magnesium 1.60 L Direct Bilirubin AST ALT Alkaline Phosphatase Troponin T C-Reactive Protein Total Protein Albumin Prealbumin Triglycerides Cholesterol LDL Cholesterol Direct HDL Cholesterol Urine pH Urine WBC (Auto) Urine Creatinine Urine Total Protein Vancomycin Trough Rheumatoid Factor Complement C4 Miscellaneous Test Crossmatch 09/30/16 09/30/16 09/30/16 11:26 13:39 18:38 WBC RBC Hgb Hct MCV MCH MCHC RDW Plt Count Lymph % (Auto) Mcdonald % (Auto) Lymph # Mcdonald # Baso # Seg Neutrophils % Seg Neuts % (Manual) Lymphocytes % (Manual) Monocytes % (Manual) Eosinophils % (Manual) Basophils % (Manual) Nucleated RBC % Seg Neutrophils # Seg Neutrophils # Man Lymphocytes # (Manual) Monocytes # (Manual) Eosinophils # (Manual) PT INR Fibrinogen dRVVT Confirm Interp Factor V Activity POC ABG pH 7.479 H POC ABG pCO2 29.8 L POC ABG pO2 117 H Sodium Potassium Chloride Carbon Dioxide BUN Creatinine Glucose POC Glucose 140 H 122 H Lactic Acid Calcium Phosphorus Magnesium Direct Bilirubin AST ALT Alkaline Phosphatase Troponin T C-Reactive Protein Total Protein Albumin Prealbumin Triglycerides Cholesterol LDL Cholesterol Direct HDL Cholesterol Urine pH Urine WBC (Auto) Urine Creatinine Urine Total Protein Vancomycin Trough Rheumatoid Factor Complement C4 Miscellaneous Test Crossmatch 10/01/16 10/01/16 10/01/16 06:00 06:00 12:37 WBC 12.6 H RBC 2.75 L Hgb 7.3 L Hct 23.3 L MCV MCH 27 L MCHC RDW 20.6 H Plt Count 72 L Lymph % (Auto) Mcdonald % (Auto) Lymph # Mcdonald # Baso # Seg Neutrophils % Seg Neuts % (Manual) 31.0 L Lymphocytes % (Manual) 8.0 L Monocytes % (Manual) Eosinophils % (Manual) Basophils % (Manual) Nucleated RBC % 3.0 H Seg Neutrophils # Seg Neutrophils # Man Lymphocytes # (Manual) 1.0 L Monocytes # (Manual) Eosinophils # (Manual) PT INR Fibrinogen dRVVT Confirm Interp Factor V Activity POC ABG pH POC ABG pCO2 POC ABG pO2 Sodium 127 L Potassium Chloride 86.8 L Carbon Dioxide 20 L BUN 42 H Creatinine 3.5 H Glucose POC Glucose 65 L Lactic Acid Calcium 7.0 L Phosphorus Magnesium Direct Bilirubin AST ALT Alkaline Phosphatase Troponin T C-Reactive Protein Total Protein Albumin Prealbumin Triglycerides Cholesterol LDL Cholesterol Direct HDL Cholesterol Urine pH Urine WBC (Auto) Urine Creatinine Urine Total Protein Vancomycin Trough Rheumatoid Factor Complement C4 Miscellaneous Test Crossmatch 10/01/16 10/01/16 10/02/16 17:39 23:32 00:59 WBC RBC Hgb Hct MCV MCH MCHC RDW Plt Count Lymph % (Auto) Mcdonald % (Auto) Lymph # Mcdonald # Baso # Seg Neutrophils % Seg Neuts % (Manual) Lymphocytes % (Manual) Monocytes % (Manual) Eosinophils % (Manual) Basophils % (Manual) Nucleated RBC % Seg Neutrophils # Seg Neutrophils # Man Lymphocytes # (Manual) Monocytes # (Manual) Eosinophils # (Manual) PT INR Fibrinogen dRVVT Confirm Interp Factor V Activity POC ABG pH POC ABG pCO2 POC ABG pO2 Sodium Potassium Chloride Carbon Dioxide BUN Creatinine Glucose POC Glucose 107 H 52 L 145 H Lactic Acid Calcium Phosphorus Magnesium Direct Bilirubin AST ALT Alkaline Phosphatase Troponin T C-Reactive Protein Total Protein Albumin Prealbumin Triglycerides Cholesterol LDL Cholesterol Direct HDL Cholesterol Urine pH Urine WBC (Auto) Urine Creatinine Urine Total Protein Vancomycin Trough Rheumatoid Factor Complement C4 Miscellaneous Test Crossmatch 10/02/16 10/02/16 10/02/16 10:30 10:50 10:50 WBC 14.7 H RBC 2.76 L Hgb 7.4 L Hct 23.6 L MCV MCH 27 L MCHC RDW 20.2 H Plt Count 79 L Lymph % (Auto) Mcdonald % (Auto) Lymph # Mcdonald # Baso # Seg Neutrophils % Seg Neuts % (Manual) 86.0 H Lymphocytes % (Manual) 6.0 L Monocytes % (Manual) Eosinophils % (Manual) Basophils % (Manual) Nucleated RBC % Seg Neutrophils # Seg Neutrophils # Man 12.6 H Lymphocytes # (Manual) 0.9 L Monocytes # (Manual) Eosinophils # (Manual) PT INR Fibrinogen dRVVT Confirm Interp Factor V Activity POC ABG pH 7.486 H POC ABG pCO2 30.1 L POC ABG pO2 108 H Sodium 131 L Potassium 3.4 L Chloride 89.9 L Carbon Dioxide BUN 26 H Creatinine 2.6 H Glucose POC Glucose Lactic Acid Calcium 7.0 L Phosphorus Magnesium Direct Bilirubin AST ALT Alkaline Phosphatase Troponin T C-Reactive Protein Total Protein Albumin Prealbumin Triglycerides Cholesterol LDL Cholesterol Direct HDL Cholesterol Urine pH Urine WBC (Auto) Urine Creatinine Urine Total Protein Vancomycin Trough Rheumatoid Factor Complement C4 Miscellaneous Test Crossmatch 10/02/16 10/03/16 10/03/16 23:45 00:45 05:10 WBC 12.9 H RBC 2.77 L Hgb 7.6 L Hct 23.7 L MCV MCH 27 L MCHC RDW 19.7 H Plt Count 89 L Lymph % (Auto) Mcdonald % (Auto) Lymph # Mcdonald # Baso # Seg Neutrophils % Seg Neuts % (Manual) Lymphocytes % (Manual) 8.0 L Monocytes % (Manual) Eosinophils % (Manual) Basophils % (Manual) Nucleated RBC % Seg Neutrophils # 11.9 H Seg Neutrophils # Man Lymphocytes # (Manual) 1.0 L Monocytes # (Manual) Eosinophils # (Manual) PT INR Fibrinogen dRVVT Confirm Interp Factor V Activity POC ABG pH POC ABG pCO2 POC ABG pO2 Sodium Potassium Chloride Carbon Dioxide BUN Creatinine Glucose POC Glucose 55 L 199 H Lactic Acid Calcium Phosphorus Magnesium Direct Bilirubin AST ALT Alkaline Phosphatase Troponin T C-Reactive Protein Total Protein Albumin Prealbumin Triglycerides Cholesterol LDL Cholesterol Direct HDL Cholesterol Urine pH Urine WBC (Auto) Urine Creatinine Urine Total Protein Vancomycin Trough Rheumatoid Factor Complement C4 Miscellaneous Test Crossmatch 10/03/16 10/03/16 10/03/16 05:10 12:14 13:18 WBC RBC Hgb Hct MCV MCH MCHC RDW Plt Count Lymph % (Auto) Mcdonald % (Auto) Lymph # Mcdonald # Baso # Seg Neutrophils % Seg Neuts % (Manual) Lymphocytes % (Manual) Monocytes % (Manual) Eosinophils % (Manual) Basophils % (Manual) Nucleated RBC % Seg Neutrophils # Seg Neutrophils # Man Lymphocytes # (Manual) Monocytes # (Manual) Eosinophils # (Manual) PT INR Fibrinogen dRVVT Confirm Interp Factor V Activity POC ABG pH POC ABG pCO2 POC ABG pO2 Sodium 129 L Potassium 3.3 L Chloride 88.8 L Carbon Dioxide 20 L BUN 29 H Creatinine 2.8 H Glucose POC Glucose 68 L 127 H Lactic Acid Calcium 7.2 L Phosphorus Magnesium Direct Bilirubin AST ALT Alkaline Phosphatase Troponin T C-Reactive Protein Total Protein Albumin Prealbumin Triglycerides Cholesterol LDL Cholesterol Direct HDL Cholesterol Urine pH Urine WBC (Auto) Urine Creatinine Urine Total Protein Vancomycin Trough Rheumatoid Factor Complement C4 Miscellaneous Test Crossmatch 10/03/16 10/03/16 10/03/16 14:42 18:21 19:09 WBC RBC Hgb Hct MCV MCH MCHC RDW Plt Count Lymph % (Auto) Mcdonald % (Auto) Lymph # Mcdonald # Baso # Seg Neutrophils % Seg Neuts % (Manual) Lymphocytes % (Manual) Monocytes % (Manual) Eosinophils % (Manual) Basophils % (Manual) Nucleated RBC % Seg Neutrophils # Seg Neutrophils # Man Lymphocytes # (Manual) Monocytes # (Manual) Eosinophils # (Manual) PT INR Fibrinogen dRVVT Confirm Interp Factor V Activity POC ABG pH 7.499 H POC ABG pCO2 28.4 L POC ABG pO2 44 L Sodium Potassium Chloride Carbon Dioxide BUN Creatinine Glucose POC Glucose 64 L 205 H Lactic Acid Calcium Phosphorus Magnesium Direct Bilirubin AST ALT Alkaline Phosphatase Troponin T C-Reactive Protein Total Protein Albumin Prealbumin Triglycerides Cholesterol LDL Cholesterol Direct HDL Cholesterol Urine pH Urine WBC (Auto) Urine Creatinine Urine Total Protein Vancomycin Trough Rheumatoid Factor Complement C4 Miscellaneous Test Crossmatch 10/03/16 10/04/16 10/04/16 23:33 04:18 06:30 WBC RBC 2.54 L Hgb 7.1 L Hct 21.7 L MCV MCH MCHC RDW 19.5 H Plt Count 76 L Lymph % (Auto) Mcdonald % (Auto) Lymph # Mcdonald # Baso # Seg Neutrophils % Seg Neuts % (Manual) 88.0 H Lymphocytes % (Manual) 6.0 L Monocytes % (Manual) Eosinophils % (Manual) Basophils % (Manual) Nucleated RBC % Seg Neutrophils # Seg Neutrophils # Man 8.8 H Lymphocytes # (Manual) 0.6 L Monocytes # (Manual) Eosinophils # (Manual) PT INR Fibrinogen dRVVT Confirm Interp Factor V Activity POC ABG pH 7.461 H POC ABG pCO2 33.6 L POC ABG pO2 211 H Sodium Potassium Chloride Carbon Dioxide BUN Creatinine Glucose POC Glucose 136 H Lactic Acid Calcium Phosphorus Magnesium Direct Bilirubin AST ALT Alkaline Phosphatase Troponin T C-Reactive Protein Total Protein Albumin Prealbumin Triglycerides Cholesterol LDL Cholesterol Direct HDL Cholesterol Urine pH Urine WBC (Auto) Urine Creatinine Urine Total Protein Vancomycin Trough Rheumatoid Factor Complement C4 Miscellaneous Test Crossmatch 10/04/16 10/04/16 10/04/16 06:30 11:45 17:54 WBC RBC Hgb Hct MCV MCH MCHC RDW Plt Count Lymph % (Auto) Mcdonald % (Auto) Lymph # Mcdonald # Baso # Seg Neutrophils % Seg Neuts % (Manual) Lymphocytes % (Manual) Monocytes % (Manual) Eosinophils % (Manual) Basophils % (Manual) Nucleated RBC % Seg Neutrophils # Seg Neutrophils # Man Lymphocytes # (Manual) Monocytes # (Manual) Eosinophils # (Manual) PT INR Fibrinogen dRVVT Confirm Interp Factor V Activity POC ABG pH POC ABG pCO2 POC ABG pO2 Sodium 128 L Potassium Chloride 87.4 L Carbon Dioxide 20 L BUN 34 H Creatinine 2.9 H Glucose 127 H POC Glucose 158 H 160 H Lactic Acid Calcium 7.4 L Phosphorus Magnesium Direct Bilirubin AST ALT Alkaline Phosphatase Troponin T C-Reactive Protein Total Protein Albumin Prealbumin Triglycerides Cholesterol LDL Cholesterol Direct HDL Cholesterol Urine pH Urine WBC (Auto) Urine Creatinine Urine Total Protein Vancomycin Trough Rheumatoid Factor Complement C4 Miscellaneous Test Crossmatch 10/04/16 10/05/16 10/05/16 23:25 04:30 05:00 WBC RBC 2.64 L Hgb 7.5 L Hct 22.6 L MCV MCH MCHC RDW 19.3 H Plt Count 80 L Lymph % (Auto) Mcdonald % (Auto) Lymph # Mcdonald # Baso # Seg Neutrophils % Seg Neuts % (Manual) Lymphocytes % (Manual) 12.0 L Monocytes % (Manual) Eosinophils % (Manual) Basophils % (Manual) Nucleated RBC % Seg Neutrophils # Seg Neutrophils # Man Lymphocytes # (Manual) Monocytes # (Manual) Eosinophils # (Manual) PT INR Fibrinogen dRVVT Confirm Interp Factor V Activity POC ABG pH 7.475 H POC ABG pCO2 33.3 L POC ABG pO2 140 H Sodium Potassium Chloride Carbon Dioxide BUN Creatinine Glucose POC Glucose 141 H Lactic Acid Calcium Phosphorus Magnesium Direct Bilirubin AST ALT Alkaline Phosphatase Troponin T C-Reactive Protein Total Protein Albumin Prealbumin Triglycerides Cholesterol LDL Cholesterol Direct HDL Cholesterol Urine pH Urine WBC (Auto) Urine Creatinine Urine Total Protein Vancomycin Trough Rheumatoid Factor Complement C4 Miscellaneous Test Crossmatch 10/05/16 10/05/16 10/05/16 05:00 05:09 12:58 WBC RBC Hgb Hct MCV MCH MCHC RDW Plt Count Lymph % (Auto) Mcdonald % (Auto) Lymph # Mcdonald # Baso # Seg Neutrophils % Seg Neuts % (Manual) Lymphocytes % (Manual) Monocytes % (Manual) Eosinophils % (Manual) Basophils % (Manual) Nucleated RBC % Seg Neutrophils # Seg Neutrophils # Man Lymphocytes # (Manual) Monocytes # (Manual) Eosinophils # (Manual) PT INR Fibrinogen dRVVT Confirm Interp Factor V Activity POC ABG pH POC ABG pCO2 POC ABG pO2 Sodium 131 L Potassium Chloride 94.0 L Carbon Dioxide 20 L BUN 22 H Creatinine 2.0 H Glucose 123 H POC Glucose 166 H 179 H Lactic Acid Calcium 7.7 L Phosphorus 2.20 L D Magnesium Direct Bilirubin AST ALT Alkaline Phosphatase Troponin T C-Reactive Protein Total Protein Albumin Prealbumin Triglycerides Cholesterol LDL Cholesterol Direct HDL Cholesterol Urine pH Urine WBC (Auto) Urine Creatinine Urine Total Protein Vancomycin Trough Rheumatoid Factor Complement C4 Miscellaneous Test Crossmatch 10/05/16 10/05/16 10/05/16 15:50 18:53 23:12 WBC RBC Hgb Hct MCV MCH MCHC RDW Plt Count Lymph % (Auto) Mcdonald % (Auto) Lymph # Mcdonald # Baso # Seg Neutrophils % Seg Neuts % (Manual) Lymphocytes % (Manual) Monocytes % (Manual) Eosinophils % (Manual) Basophils % (Manual) Nucleated RBC % Seg Neutrophils # Seg Neutrophils # Man Lymphocytes # (Manual) Monocytes # (Manual) Eosinophils # (Manual) PT INR Fibrinogen dRVVT Confirm Interp Factor V Activity POC ABG pH POC ABG pCO2 POC ABG pO2 Sodium Potassium Chloride Carbon Dioxide BUN Creatinine Glucose POC Glucose 150 H 164 H Lactic Acid Calcium Phosphorus Magnesium Direct Bilirubin AST ALT Alkaline Phosphatase Troponin T C-Reactive Protein Total Protein Albumin Prealbumin Triglycerides Cholesterol LDL Cholesterol Direct HDL Cholesterol Urine pH Urine WBC (Auto) Urine Creatinine Urine Total Protein Vancomycin Trough Rheumatoid Factor Complement C4 Miscellaneous Test Crossmatch See Detail 10/06/16 10/06/16 10/06/16 03:50 03:50 04:53 WBC RBC 3.00 L Hgb 8.6 L Hct 25.8 L MCV MCH MCHC RDW 17.9 H Plt Count 65 L Lymph % (Auto) Mcdonald % (Auto) Lymph # Mcdonald # Baso # Seg Neutrophils % Seg Neuts % (Manual) 30.0 L Lymphocytes % (Manual) 5.0 L Monocytes % (Manual) Eosinophils % (Manual) Basophils % (Manual) Nucleated RBC % Seg Neutrophils # Seg Neutrophils # Man Lymphocytes # (Manual) 0.4 L Monocytes # (Manual) Eosinophils # (Manual) PT INR Fibrinogen dRVVT Confirm Interp Factor V Activity POC ABG pH 7.310 L POC ABG pCO2 49.0 H POC ABG pO2 Sodium 133 L Potassium Chloride 95.9 L Carbon Dioxide BUN 26 H Creatinine 2.0 H Glucose 116 H POC Glucose Lactic Acid Calcium 7.8 L Phosphorus Magnesium Direct Bilirubin AST ALT Alkaline Phosphatase Troponin T C-Reactive Protein Total Protein Albumin Prealbumin Triglycerides Cholesterol LDL Cholesterol Direct HDL Cholesterol Urine pH Urine WBC (Auto) Urine Creatinine Urine Total Protein Vancomycin Trough Rheumatoid Factor Complement C4 Miscellaneous Test Crossmatch 10/06/16 10/06/16 10/06/16 05:23 11:52 18:34 WBC RBC Hgb Hct MCV MCH MCHC RDW Plt Count Lymph % (Auto) Mcdonald % (Auto) Lymph # Mcdonald # Baso # Seg Neutrophils % Seg Neuts % (Manual) Lymphocytes % (Manual) Monocytes % (Manual) Eosinophils % (Manual) Basophils % (Manual) Nucleated RBC % Seg Neutrophils # Seg Neutrophils # Man Lymphocytes # (Manual) Monocytes # (Manual) Eosinophils # (Manual) PT INR Fibrinogen dRVVT Confirm Interp Factor V Activity POC ABG pH POC ABG pCO2 POC ABG pO2 Sodium Potassium Chloride Carbon Dioxide BUN Creatinine Glucose POC Glucose 126 H 116 H 129 H Lactic Acid Calcium Phosphorus Magnesium Direct Bilirubin AST ALT Alkaline Phosphatase Troponin T C-Reactive Protein Total Protein Albumin Prealbumin Triglycerides Cholesterol LDL Cholesterol Direct HDL Cholesterol Urine pH Urine WBC (Auto) Urine Creatinine Urine Total Protein Vancomycin Trough Rheumatoid Factor Complement C4 Miscellaneous Test Crossmatch 10/07/16 10/07/16 10/07/16 03:45 05:00 10:00 WBC 17.0 H RBC 2.68 L Hgb 7.3 L Hct 25.3 L MCV MCH 27 L MCHC 29 L RDW 19.6 H Plt Count 74 L Lymph % (Auto) Mcdonald % (Auto) Lymph # Mcdonald # Baso # Seg Neutrophils % Seg Neuts % (Manual) Lymphocytes % (Manual) 12.0 L Monocytes % (Manual) Eosinophils % (Manual) Basophils % (Manual) Nucleated RBC % 4.0 H Seg Neutrophils # Seg Neutrophils # Man 10.7 H Lymphocytes # (Manual) Monocytes # (Manual) Eosinophils # (Manual) PT INR Fibrinogen dRVVT Confirm Interp Factor V Activity POC ABG pH POC ABG pCO2 POC ABG pO2 Sodium 130 L Potassium 3.2 L Chloride 93.9 L Carbon Dioxide 20 L BUN 44 H Creatinine 2.7 H Glucose 129 H POC Glucose Lactic Acid Calcium 7.4 L Phosphorus Magnesium Direct Bilirubin AST ALT 6 L Alkaline Phosphatase 195 H Troponin T C-Reactive Protein Total Protein 4.9 L Albumin 1.0 L Prealbumin Triglycerides Cholesterol LDL Cholesterol Direct HDL Cholesterol Urine pH Urine WBC (Auto) Urine Creatinine Urine Total Protein Vancomycin Trough Rheumatoid Factor Complement C4 Miscellaneous Test Flexitest 1 H Crossmatch 10/07/16 10/07/16 10/07/16 10:00 11:24 18:10 WBC RBC Hgb Hct MCV MCH MCHC RDW Plt Count Lymph % (Auto) Mcdonald % (Auto) Lymph # Mcdonald # Baso # Seg Neutrophils % Seg Neuts % (Manual) Lymphocytes % (Manual) Monocytes % (Manual) Eosinophils % (Manual) Basophils % (Manual) Nucleated RBC % Seg Neutrophils # Seg Neutrophils # Man Lymphocytes # (Manual) Monocytes # (Manual) Eosinophils # (Manual) PT INR Fibrinogen dRVVT Confirm Interp Factor V Activity POC ABG pH POC ABG pCO2 POC ABG pO2 Sodium Potassium Chloride Carbon Dioxide BUN Creatinine Glucose POC Glucose 116 H 130 H Lactic Acid Calcium Phosphorus Magnesium Direct Bilirubin AST ALT Alkaline Phosphatase Troponin T C-Reactive Protein 19.40 H Total Protein Albumin Prealbumin Triglycerides Cholesterol LDL Cholesterol Direct HDL Cholesterol Urine pH Urine WBC (Auto) Urine Creatinine Urine Total Protein Vancomycin Trough Rheumatoid Factor Complement C4 Miscellaneous Test Crossmatch 10/07/16 10/08/16 10/08/16 18:30 00:00 04:00 WBC RBC Hgb Hct MCV MCH MCHC RDW Plt Count Lymph % (Auto) Mcdonald % (Auto) Lymph # Mcdonald # Baso # Seg Neutrophils % Seg Neuts % (Manual) Lymphocytes % (Manual) Monocytes % (Manual) Eosinophils % (Manual) Basophils % (Manual) Nucleated RBC % Seg Neutrophils # Seg Neutrophils # Man Lymphocytes # (Manual) Monocytes # (Manual) Eosinophils # (Manual) PT INR Fibrinogen dRVVT Confirm Interp Factor V Activity POC ABG pH POC ABG pCO2 POC ABG pO2 Sodium 132 L Potassium 3.3 L Chloride 93.6 L Carbon Dioxide 17 L BUN 59 H Creatinine 2.7 H Glucose 121 H POC Glucose 122 H Lactic Acid Calcium 7.6 L Phosphorus Magnesium Direct Bilirubin AST ALT Alkaline Phosphatase Troponin T C-Reactive Protein Total Protein Albumin Prealbumin Triglycerides Cholesterol LDL Cholesterol Direct HDL Cholesterol Urine pH Urine WBC (Auto) > 182.0 H Urine Creatinine Urine Total Protein Vancomycin Trough Rheumatoid Factor Complement C4 Miscellaneous Test Crossmatch 10/08/16 10/08/16 10/08/16 04:30 05:30 11:51 WBC RBC 5.15 H Hgb 14.4 H D Hct 44.5 H D MCV MCH MCHC RDW 19.5 H Plt Count 56 L Lymph % (Auto) Mcdonald % (Auto) Lymph # Mcdonald # Baso # Seg Neutrophils % Seg Neuts % (Manual) 24.0 L Lymphocytes % (Manual) 8.0 L Monocytes % (Manual) Eosinophils % (Manual) Basophils % (Manual) Nucleated RBC % 9.0 H Seg Neutrophils # Seg Neutrophils # Man Lymphocytes # (Manual) 0.7 L Monocytes # (Manual) Eosinophils # (Manual) PT INR Fibrinogen dRVVT Confirm Interp Factor V Activity POC ABG pH POC ABG pCO2 POC ABG pO2 Sodium Potassium Chloride Carbon Dioxide BUN Creatinine Glucose POC Glucose 125 H 150 H Lactic Acid Calcium Phosphorus Magnesium Direct Bilirubin AST ALT Alkaline Phosphatase Troponin T C-Reactive Protein Total Protein Albumin Prealbumin Triglycerides Cholesterol LDL Cholesterol Direct HDL Cholesterol Urine pH Urine WBC (Auto) Urine Creatinine Urine Total Protein Vancomycin Trough Rheumatoid Factor Complement C4 Miscellaneous Test Crossmatch 10/08/16 10/08/16 10/08/16 12:49 17:07 19:30 WBC RBC Hgb 7.1 L D Hct 22.4 L D MCV MCH MCHC RDW Plt Count Lymph % (Auto) Mcdonald % (Auto) Lymph # Mcdonald # Baso # Seg Neutrophils % Seg Neuts % (Manual) Lymphocytes % (Manual) Monocytes % (Manual) Eosinophils % (Manual) Basophils % (Manual) Nucleated RBC % Seg Neutrophils # Seg Neutrophils # Man Lymphocytes # (Manual) Monocytes # (Manual) Eosinophils # (Manual) PT INR Fibrinogen dRVVT Confirm Interp Factor V Activity POC ABG pH POC ABG pCO2 28.2 L POC ABG pO2 111 H Sodium Potassium Chloride Carbon Dioxide BUN Creatinine Glucose POC Glucose 145 H Lactic Acid Calcium Phosphorus Magnesium Direct Bilirubin AST ALT Alkaline Phosphatase Troponin T C-Reactive Protein Total Protein Albumin Prealbumin Triglycerides Cholesterol LDL Cholesterol Direct HDL Cholesterol Urine pH Urine WBC (Auto) Urine Creatinine Urine Total Protein Vancomycin Trough Rheumatoid Factor Complement C4 Miscellaneous Test Crossmatch 10/08/16 10/09/16 10/09/16 19:30 03:45 03:45 WBC 12.6 H RBC 2.36 L Hgb 6.7 L Hct 21.1 L MCV MCH MCHC RDW 19.5 H Plt Count 75 L Lymph % (Auto) Mcdonald % (Auto) Lymph # Mcdonald # Baso # Seg Neutrophils % Seg Neuts % (Manual) Lymphocytes % (Manual) Monocytes % (Manual) 10.0 H Eosinophils % (Manual) Basophils % (Manual) Nucleated RBC % 3.0 H Seg Neutrophils # Seg Neutrophils # Man Lymphocytes # (Manual) Monocytes # (Manual) 1.3 H Eosinophils # (Manual) PT 18.0 H INR 1.41 H Fibrinogen dRVVT Confirm Interp Factor V Activity POC ABG pH POC ABG pCO2 POC ABG pO2 Sodium 135 L Potassium Chloride Carbon Dioxide 17 L BUN 81 H Creatinine 3.2 H Glucose 109 H POC Glucose Lactic Acid Calcium 7.4 L Phosphorus 4.60 H D Magnesium Direct Bilirubin AST ALT Alkaline Phosphatase Troponin T C-Reactive Protein Total Protein Albumin Prealbumin Triglycerides Cholesterol LDL Cholesterol Direct HDL Cholesterol Urine pH Urine WBC (Auto) Urine Creatinine Urine Total Protein Vancomycin Trough Rheumatoid Factor Complement C4 Miscellaneous Test Crossmatch 10/09/16 10/09/16 10/09/16 03:45 05:14 07:20 WBC RBC Hgb Hct MCV MCH MCHC RDW Plt Count Lymph % (Auto) Mcdonald % (Auto) Lymph # Mcdonald # Baso # Seg Neutrophils % Seg Neuts % (Manual) Lymphocytes % (Manual) Monocytes % (Manual) Eosinophils % (Manual) Basophils % (Manual) Nucleated RBC % Seg Neutrophils # Seg Neutrophils # Man Lymphocytes # (Manual) Monocytes # (Manual) Eosinophils # (Manual) PT 19.0 H INR 1.51 H Fibrinogen dRVVT Confirm Interp Factor V Activity POC ABG pH POC ABG pCO2 POC ABG pO2 Sodium Potassium Chloride Carbon Dioxide BUN Creatinine Glucose POC Glucose 151 H Lactic Acid Calcium Phosphorus Magnesium Direct Bilirubin AST ALT Alkaline Phosphatase Troponin T C-Reactive Protein Total Protein Albumin Prealbumin Triglycerides Cholesterol LDL Cholesterol Direct HDL Cholesterol Urine pH Urine WBC (Auto) Urine Creatinine Urine Total Protein Vancomycin Trough Rheumatoid Factor Complement C4 Miscellaneous Test Crossmatch See Detail 10/09/16 10/09/16 10/09/16 11:46 16:20 16:43 WBC RBC Hgb 7.2 L Hct 22.2 L MCV MCH MCHC RDW Plt Count Lymph % (Auto) Mcdonald % (Auto) Lymph # Mcdonald # Baso # Seg Neutrophils % Seg Neuts % (Manual) Lymphocytes % (Manual) Monocytes % (Manual) Eosinophils % (Manual) Basophils % (Manual) Nucleated RBC % Seg Neutrophils # Seg Neutrophils # Man Lymphocytes # (Manual) Monocytes # (Manual) Eosinophils # (Manual) PT INR Fibrinogen dRVVT Confirm Interp Factor V Activity POC ABG pH POC ABG pCO2 POC ABG pO2 Sodium Potassium Chloride Carbon Dioxide BUN Creatinine Glucose POC Glucose 133 H 141 H Lactic Acid Calcium Phosphorus Magnesium Direct Bilirubin AST ALT Alkaline Phosphatase Troponin T C-Reactive Protein Total Protein Albumin Prealbumin Triglycerides Cholesterol LDL Cholesterol Direct HDL Cholesterol Urine pH Urine WBC (Auto) Urine Creatinine Urine Total Protein Vancomycin Trough Rheumatoid Factor Complement C4 Miscellaneous Test Crossmatch 10/10/16 10/10/16 10/10/16 05:00 05:00 11:19 WBC 18.5 H RBC 2.19 L Hgb 6.4 L Hct 19.6 L* MCV MCH MCHC RDW 19.3 H Plt Count 93 L Lymph % (Auto) Mcdonald % (Auto) Lymph # Mcdonald # Baso # Seg Neutrophils % Seg Neuts % (Manual) Lymphocytes % (Manual) 10.0 L Monocytes % (Manual) Eosinophils % (Manual) Basophils % (Manual) Nucleated RBC % 4.0 H Seg Neutrophils # Seg Neutrophils # Man 11.3 H Lymphocytes # (Manual) Monocytes # (Manual) Eosinophils # (Manual) PT INR Fibrinogen dRVVT Confirm Interp Factor V Activity POC ABG pH POC ABG pCO2 POC ABG pO2 Sodium Potassium 5.7 H D Chloride Carbon Dioxide 16 L BUN 94 H Creatinine 3.1 H Glucose 131 H POC Glucose 153 H Lactic Acid Calcium 8.2 L Phosphorus 5.10 H Magnesium 2.40 H Direct Bilirubin 0.3 H AST ALT < 5 L Alkaline Phosphatase 319 H Troponin T C-Reactive Protein Total Protein 5.1 L Albumin 1.0 L Prealbumin Triglycerides Cholesterol LDL Cholesterol Direct HDL Cholesterol Urine pH Urine WBC (Auto) Urine Creatinine Urine Total Protein Vancomycin Trough Rheumatoid Factor Complement C4 Miscellaneous Test Crossmatch 10/10/16 10/10/16 10/11/16 17:50 23:30 04:15 WBC RBC Hgb Hct MCV MCH MCHC RDW Plt Count Lymph % (Auto) Mcdonald % (Auto) Lymph # Mcdonald # Baso # Seg Neutrophils % Seg Neuts % (Manual) Lymphocytes % (Manual) Monocytes % (Manual) Eosinophils % (Manual) Basophils % (Manual) Nucleated RBC % Seg Neutrophils # Seg Neutrophils # Man Lymphocytes # (Manual) Monocytes # (Manual) Eosinophils # (Manual) PT INR Fibrinogen dRVVT Confirm Interp Factor V Activity POC ABG pH POC ABG pCO2 POC ABG pO2 Sodium Potassium Chloride 96.4 L Carbon Dioxide 21 L BUN 57 H Creatinine 2.1 H Glucose 151 H POC Glucose 146 H 141 H Lactic Acid Calcium 8.3 L Phosphorus Magnesium Direct Bilirubin AST ALT Alkaline Phosphatase Troponin T C-Reactive Protein Total Protein Albumin Prealbumin Triglycerides Cholesterol LDL Cholesterol Direct HDL Cholesterol Urine pH Urine WBC (Auto) Urine Creatinine Urine Total Protein Vancomycin Trough Rheumatoid Factor Complement C4 Miscellaneous Test Crossmatch 10/11/16 10/11/16 10/11/16 04:15 04:15 05:30 WBC 28.3 H RBC 3.12 L Hgb 9.3 L Hct 28.7 L D MCV MCH MCHC RDW 17.7 H Plt Count 128 L Lymph % (Auto) Mcdonald % (Auto) Lymph # Mcdonald # Baso # Seg Neutrophils % Seg Neuts % (Manual) Lymphocytes % (Manual) Monocytes % (Manual) Eosinophils % (Manual) Basophils % (Manual) Nucleated RBC % Seg Neutrophils # Seg Neutrophils # Man Lymphocytes # (Manual) Monocytes # (Manual) Eosinophils # (Manual) PT INR Fibrinogen dRVVT Confirm Interp Factor V Activity POC ABG pH POC ABG pCO2 POC ABG pO2 Sodium Potassium Chloride Carbon Dioxide BUN Creatinine Glucose POC Glucose 167 H Lactic Acid Calcium Phosphorus Magnesium Direct Bilirubin AST ALT Alkaline Phosphatase Troponin T C-Reactive Protein 15.80 H Total Protein Albumin Prealbumin Triglycerides Cholesterol LDL Cholesterol Direct HDL Cholesterol Urine pH Urine WBC (Auto) Urine Creatinine Urine Total Protein Vancomycin Trough Rheumatoid Factor Complement C4 Miscellaneous Test Crossmatch 10/11/16 10/11/16 10/11/16 11:40 15:49 23:57 WBC RBC Hgb Hct MCV MCH MCHC RDW Plt Count Lymph % (Auto) Mcdonald % (Auto) Lymph # Mcdonald # Baso # Seg Neutrophils % Seg Neuts % (Manual) Lymphocytes % (Manual) Monocytes % (Manual) Eosinophils % (Manual) Basophils % (Manual) Nucleated RBC % Seg Neutrophils # Seg Neutrophils # Man Lymphocytes # (Manual) Monocytes # (Manual) Eosinophils # (Manual) PT INR Fibrinogen dRVVT Confirm Interp Factor V Activity POC ABG pH POC ABG pCO2 POC ABG pO2 Sodium Potassium Chloride Carbon Dioxide BUN Creatinine Glucose POC Glucose 139 H 168 H 161 H Lactic Acid Calcium Phosphorus Magnesium Direct Bilirubin AST ALT Alkaline Phosphatase Troponin T C-Reactive Protein Total Protein Albumin Prealbumin Triglycerides Cholesterol LDL Cholesterol Direct HDL Cholesterol Urine pH Urine WBC (Auto) Urine Creatinine Urine Total Protein Vancomycin Trough Rheumatoid Factor Complement C4 Miscellaneous Test Crossmatch 10/12/16 10/12/16 10/12/16 04:40 04:40 05:44 WBC 22.5 H RBC 2.88 L Hgb 8.8 L Hct 26.8 L MCV MCH MCHC RDW 17.8 H Plt Count Lymph % (Auto) Mcdonald % (Auto) Lymph # Mcdonald # Baso # Seg Neutrophils % Seg Neuts % (Manual) Lymphocytes % (Manual) Monocytes % (Manual) Eosinophils % (Manual) Basophils % (Manual) Nucleated RBC % Seg Neutrophils # Seg Neutrophils # Man Lymphocytes # (Manual) Monocytes # (Manual) Eosinophils # (Manual) PT INR Fibrinogen dRVVT Confirm Interp Factor V Activity POC ABG pH POC ABG pCO2 POC ABG pO2 Sodium 134 L Potassium Chloride 93.0 L Carbon Dioxide BUN 74 H Creatinine 2.5 H Glucose 137 H POC Glucose 158 H Lactic Acid Calcium 8.2 L Phosphorus Magnesium Direct Bilirubin AST ALT Alkaline Phosphatase Troponin T C-Reactive Protein Total Protein Albumin Prealbumin Triglycerides Cholesterol LDL Cholesterol Direct HDL Cholesterol Urine pH Urine WBC (Auto) Urine Creatinine Urine Total Protein Vancomycin Trough Rheumatoid Factor Complement C4 Miscellaneous Test Crossmatch 10/12/16 10/12/16 10/12/16 12:27 18:18 23:46 WBC RBC Hgb Hct MCV MCH MCHC RDW Plt Count Lymph % (Auto) Mcdonald % (Auto) Lymph # Mcdonald # Baso # Seg Neutrophils % Seg Neuts % (Manual) Lymphocytes % (Manual) Monocytes % (Manual) Eosinophils % (Manual) Basophils % (Manual) Nucleated RBC % Seg Neutrophils # Seg Neutrophils # Man Lymphocytes # (Manual) Monocytes # (Manual) Eosinophils # (Manual) PT INR Fibrinogen dRVVT Confirm Interp Factor V Activity POC ABG pH POC ABG pCO2 POC ABG pO2 Sodium Potassium Chloride Carbon Dioxide BUN Creatinine Glucose POC Glucose 153 H 140 H 150 H Lactic Acid Calcium Phosphorus Magnesium Direct Bilirubin AST ALT Alkaline Phosphatase Troponin T C-Reactive Protein Total Protein Albumin Prealbumin Triglycerides Cholesterol LDL Cholesterol Direct HDL Cholesterol Urine pH Urine WBC (Auto) Urine Creatinine Urine Total Protein Vancomycin Trough Rheumatoid Factor Complement C4 Miscellaneous Test Crossmatch 10/13/16 10/13/16 10/13/16 06:22 09:20 12:29 WBC RBC Hgb Hct MCV MCH MCHC RDW Plt Count Lymph % (Auto) Mcdonald % (Auto) Lymph # Mcdonald # Baso # Seg Neutrophils % Seg Neuts % (Manual) Lymphocytes % (Manual) Monocytes % (Manual) Eosinophils % (Manual) Basophils % (Manual) Nucleated RBC % Seg Neutrophils # Seg Neutrophils # Man Lymphocytes # (Manual) Monocytes # (Manual) Eosinophils # (Manual) PT INR Fibrinogen dRVVT Confirm Interp Factor V Activity POC ABG pH POC ABG pCO2 POC ABG pO2 Sodium Potassium Chloride Carbon Dioxide BUN Creatinine Glucose POC Glucose 165 H 193 H Lactic Acid Calcium Phosphorus Magnesium Direct Bilirubin AST ALT Alkaline Phosphatase Troponin T C-Reactive Protein Total Protein Albumin Prealbumin Triglycerides Cholesterol LDL Cholesterol Direct HDL Cholesterol Urine pH Urine WBC (Auto) Urine Creatinine Urine Total Protein Vancomycin Trough Rheumatoid Factor Complement C4 Miscellaneous Test Flexitest 1 H Crossmatch 10/13/16 10/13/16 10/13/16 18:09 Unknown Unknown WBC 23.4 H RBC 2.83 L Hgb 8.7 L Hct 26.1 L MCV MCH MCHC RDW 18.1 H Plt Count Lymph % (Auto) Mcdonald % (Auto) Lymph # Mcdonald # Baso # Seg Neutrophils % Seg Neuts % (Manual) Lymphocytes % (Manual) Monocytes % (Manual) Eosinophils % (Manual) Basophils % (Manual) Nucleated RBC % Seg Neutrophils # Seg Neutrophils # Man Lymphocytes # (Manual) Monocytes # (Manual) Eosinophils # (Manual) PT INR Fibrinogen dRVVT Confirm Interp Factor V Activity POC ABG pH POC ABG pCO2 POC ABG pO2 Sodium Potassium Chloride 95.8 L Carbon Dioxide BUN 82 H Creatinine 2.6 H Glucose 152 H POC Glucose 166 H Lactic Acid Calcium Phosphorus Magnesium Direct Bilirubin AST ALT Alkaline Phosphatase Troponin T C-Reactive Protein Total Protein Albumin Prealbumin Triglycerides Cholesterol LDL Cholesterol Direct HDL Cholesterol Urine pH Urine WBC (Auto) Urine Creatinine Urine Total Protein Vancomycin Trough Rheumatoid Factor Complement C4 Miscellaneous Test Crossmatch 10/14/16 10/14/16 10/14/16 05:38 06:35 08:10 WBC 20.7 H RBC 2.81 L Hgb 8.4 L Hct 27.2 L MCV MCH MCHC RDW 19.4 H Plt Count Lymph % (Auto) Mcdonald % (Auto) Lymph # Mcdonald # Baso # Seg Neutrophils % Seg Neuts % (Manual) Lymphocytes % (Manual) Monocytes % (Manual) Eosinophils % (Manual) Basophils % (Manual) Nucleated RBC % Seg Neutrophils # Seg Neutrophils # Man Lymphocytes # (Manual) Monocytes # (Manual) Eosinophils # (Manual) PT INR Fibrinogen dRVVT Confirm Interp Factor V Activity POC ABG pH POC ABG pCO2 POC ABG pO2 Sodium Potassium Chloride Carbon Dioxide BUN 58 H Creatinine 1.9 H Glucose 169 H POC Glucose 195 H Lactic Acid Calcium Phosphorus Magnesium Direct Bilirubin AST ALT Alkaline Phosphatase Troponin T C-Reactive Protein Total Protein Albumin Prealbumin Triglycerides Cholesterol LDL Cholesterol Direct HDL Cholesterol Urine pH Urine WBC (Auto) Urine Creatinine Urine Total Protein Vancomycin Trough Rheumatoid Factor Complement C4 Miscellaneous Test Crossmatch 10/14/16 10/14/16 10/14/16 11:44 17:13 23:28 WBC RBC Hgb Hct MCV MCH MCHC RDW Plt Count Lymph % (Auto) Mcdonald % (Auto) Lymph # Mcdonald # Baso # Seg Neutrophils % Seg Neuts % (Manual) Lymphocytes % (Manual) Monocytes % (Manual) Eosinophils % (Manual) Basophils % (Manual) Nucleated RBC % Seg Neutrophils # Seg Neutrophils # Man Lymphocytes # (Manual) Monocytes # (Manual) Eosinophils # (Manual) PT INR Fibrinogen dRVVT Confirm Interp Factor V Activity POC ABG pH POC ABG pCO2 POC ABG pO2 Sodium Potassium Chloride Carbon Dioxide BUN Creatinine Glucose POC Glucose 174 H 121 H 151 H Lactic Acid Calcium Phosphorus Magnesium Direct Bilirubin AST ALT Alkaline Phosphatase Troponin T C-Reactive Protein Total Protein Albumin Prealbumin Triglycerides Cholesterol LDL Cholesterol Direct HDL Cholesterol Urine pH Urine WBC (Auto) Urine Creatinine Urine Total Protein Vancomycin Trough Rheumatoid Factor Complement C4 Miscellaneous Test Crossmatch 10/15/16 10/15/16 10/15/16 05:06 12:26 17:48 WBC RBC Hgb Hct MCV MCH MCHC RDW Plt Count Lymph % (Auto) Mcdonald % (Auto) Lymph # Mcdonald # Baso # Seg Neutrophils % Seg Neuts % (Manual) Lymphocytes % (Manual) Monocytes % (Manual) Eosinophils % (Manual) Basophils % (Manual) Nucleated RBC % Seg Neutrophils # Seg Neutrophils # Man Lymphocytes # (Manual) Monocytes # (Manual) Eosinophils # (Manual) PT INR Fibrinogen dRVVT Confirm Interp Factor V Activity POC ABG pH POC ABG pCO2 POC ABG pO2 Sodium Potassium Chloride Carbon Dioxide BUN Creatinine Glucose POC Glucose 151 H 149 H 153 H Lactic Acid Calcium Phosphorus Magnesium Direct Bilirubin AST ALT Alkaline Phosphatase Troponin T C-Reactive Protein Total Protein Albumin Prealbumin Triglycerides Cholesterol LDL Cholesterol Direct HDL Cholesterol Urine pH Urine WBC (Auto) Urine Creatinine Urine Total Protein Vancomycin Trough Rheumatoid Factor Complement C4 Miscellaneous Test Crossmatch 10/15/16 10/15/16 10/16/16 Unknown Unknown 00:02 WBC 23.4 H RBC 2.78 L Hgb 8.5 L Hct 25.7 L MCV MCH MCHC RDW 18.7 H Plt Count Lymph % (Auto) Mcdonald % (Auto) Lymph # Mcdonald # Baso # Seg Neutrophils % Seg Neuts % (Manual) Lymphocytes % (Manual) Monocytes % (Manual) Eosinophils % (Manual) Basophils % (Manual) Nucleated RBC % Seg Neutrophils # Seg Neutrophils # Man Lymphocytes # (Manual) Monocytes # (Manual) Eosinophils # (Manual) PT INR Fibrinogen dRVVT Confirm Interp Factor V Activity POC ABG pH POC ABG pCO2 POC ABG pO2 Sodium Potassium Chloride Carbon Dioxide BUN 73 H Creatinine 2.3 H Glucose 120 H POC Glucose 137 H Lactic Acid Calcium Phosphorus Magnesium Direct Bilirubin AST ALT Alkaline Phosphatase Troponin T C-Reactive Protein Total Protein Albumin Prealbumin Triglycerides Cholesterol LDL Cholesterol Direct HDL Cholesterol Urine pH Urine WBC (Auto) Urine Creatinine Urine Total Protein Vancomycin Trough Rheumatoid Factor Complement C4 Miscellaneous Test Crossmatch 10/16/16 10/16/16 10/16/16 05:44 06:25 06:25 WBC 22.5 H RBC 2.76 L Hgb 8.3 L Hct 25.2 L MCV MCH MCHC RDW 18.3 H Plt Count Lymph % (Auto) Mcdonald % (Auto) Lymph # Mcdonald # Baso # Seg Neutrophils % Seg Neuts % (Manual) Lymphocytes % (Manual) Monocytes % (Manual) Eosinophils % (Manual) Basophils % (Manual) Nucleated RBC % Seg Neutrophils # Seg Neutrophils # Man Lymphocytes # (Manual) Monocytes # (Manual) Eosinophils # (Manual) PT INR Fibrinogen dRVVT Confirm Interp Factor V Activity POC ABG pH POC ABG pCO2 POC ABG pO2 Sodium Potassium Chloride Carbon Dioxide BUN 92 H Creatinine 3.0 H Glucose 138 H POC Glucose 110 H Lactic Acid Calcium Phosphorus Magnesium Direct Bilirubin AST ALT Alkaline Phosphatase Troponin T C-Reactive Protein Total Protein Albumin Prealbumin Triglycerides Cholesterol LDL Cholesterol Direct HDL Cholesterol Urine pH Urine WBC (Auto) Urine Creatinine Urine Total Protein Vancomycin Trough Rheumatoid Factor Complement C4 Miscellaneous Test Crossmatch 10/16/16 10/16/16 10/16/16 11:27 11:48 17:36 WBC RBC Hgb Hct MCV MCH MCHC RDW Plt Count Lymph % (Auto) Mcdonald % (Auto) Lymph # Mcdonald # Baso # Seg Neutrophils % Seg Neuts % (Manual) Lymphocytes % (Manual) Monocytes % (Manual) Eosinophils % (Manual) Basophils % (Manual) Nucleated RBC % Seg Neutrophils # Seg Neutrophils # Man Lymphocytes # (Manual) Monocytes # (Manual) Eosinophils # (Manual) PT INR Fibrinogen dRVVT Confirm Interp Factor V Activity POC ABG pH 7.582 H POC ABG pCO2 27.4 L POC ABG pO2 110 H Sodium Potassium Chloride Carbon Dioxide BUN Creatinine Glucose POC Glucose 121 H 133 H Lactic Acid Calcium Phosphorus Magnesium Direct Bilirubin AST ALT Alkaline Phosphatase Troponin T C-Reactive Protein Total Protein Albumin Prealbumin Triglycerides Cholesterol LDL Cholesterol Direct HDL Cholesterol Urine pH Urine WBC (Auto) Urine Creatinine Urine Total Protein Vancomycin Trough Rheumatoid Factor Complement C4 Miscellaneous Test Crossmatch 10/16/16 10/17/16 10/17/16 20:48 04:24 04:24 WBC 21.4 H RBC 2.72 L Hgb 8.0 L Hct 25.2 L MCV MCH MCHC RDW 18.0 H Plt Count Lymph % (Auto) Mcdonald % (Auto) Lymph # Mcdonald # Baso # Seg Neutrophils % Seg Neuts % (Manual) Lymphocytes % (Manual) Monocytes % (Manual) Eosinophils % (Manual) Basophils % (Manual) Nucleated RBC % Seg Neutrophils # Seg Neutrophils # Man Lymphocytes # (Manual) Monocytes # (Manual) Eosinophils # (Manual) PT INR Fibrinogen dRVVT Confirm Interp Factor V Activity POC ABG pH 7.561 H POC ABG pCO2 24.4 L POC ABG pO2 77 L Sodium 148 H Potassium Chloride Carbon Dioxide BUN 104 H Creatinine 3.0 H Glucose 149 H POC Glucose Lactic Acid Calcium Phosphorus Magnesium Direct Bilirubin AST ALT Alkaline Phosphatase 138 H Troponin T C-Reactive Protein Total Protein 6.2 L Albumin 1.5 L Prealbumin Triglycerides Cholesterol LDL Cholesterol Direct HDL Cholesterol Urine pH Urine WBC (Auto) Urine Creatinine Urine Total Protein Vancomycin Trough Rheumatoid Factor Complement C4 Miscellaneous Test Crossmatch 10/17/16 10/17/16 10/17/16 06:02 12:17 17:14 WBC RBC Hgb Hct MCV MCH MCHC RDW Plt Count Lymph % (Auto) Mcdonald % (Auto) Lymph # Mcdonald # Baso # Seg Neutrophils % Seg Neuts % (Manual) Lymphocytes % (Manual) Monocytes % (Manual) Eosinophils % (Manual) Basophils % (Manual) Nucleated RBC % Seg Neutrophils # Seg Neutrophils # Man Lymphocytes # (Manual) Monocytes # (Manual) Eosinophils # (Manual) PT INR Fibrinogen dRVVT Confirm Interp Factor V Activity POC ABG pH POC ABG pCO2 POC ABG pO2 Sodium Potassium Chloride Carbon Dioxide BUN Creatinine Glucose POC Glucose 170 H 167 H 126 H Lactic Acid Calcium Phosphorus Magnesium Direct Bilirubin AST ALT Alkaline Phosphatase Troponin T C-Reactive Protein Total Protein Albumin Prealbumin Triglycerides Cholesterol LDL Cholesterol Direct HDL Cholesterol Urine pH Urine WBC (Auto) Urine Creatinine Urine Total Protein Vancomycin Trough Rheumatoid Factor Complement C4 Miscellaneous Test Crossmatch 10/17/16 10/18/16 10/18/16 23:17 04:00 04:00 WBC 20.7 H RBC 2.47 L Hgb 7.4 L Hct 22.9 L MCV MCH MCHC RDW 17.5 H Plt Count Lymph % (Auto) Mcdonald % (Auto) Lymph # Mcdonald # Baso # Seg Neutrophils % Seg Neuts % (Manual) Lymphocytes % (Manual) Monocytes % (Manual) Eosinophils % (Manual) Basophils % (Manual) Nucleated RBC % Seg Neutrophils # Seg Neutrophils # Man Lymphocytes # (Manual) Monocytes # (Manual) Eosinophils # (Manual) PT INR Fibrinogen dRVVT Confirm Interp Factor V Activity POC ABG pH POC ABG pCO2 POC ABG pO2 Sodium 149 H Potassium Chloride 107.9 H Carbon Dioxide 20 L BUN 117 H Creatinine 3.2 H Glucose 119 H POC Glucose 121 H Lactic Acid Calcium Phosphorus Magnesium Direct Bilirubin AST ALT Alkaline Phosphatase Troponin T C-Reactive Protein Total Protein Albumin Prealbumin Triglycerides Cholesterol LDL Cholesterol Direct HDL Cholesterol Urine pH Urine WBC (Auto) Urine Creatinine Urine Total Protein Vancomycin Trough Rheumatoid Factor Complement C4 Miscellaneous Test Crossmatch 10/18/16 10/18/16 10/18/16 05:23 10:46 17:30 WBC RBC Hgb Hct MCV MCH MCHC RDW Plt Count Lymph % (Auto) Mcdonald % (Auto) Lymph # Mcdonald # Baso # Seg Neutrophils % Seg Neuts % (Manual) Lymphocytes % (Manual) Monocytes % (Manual) Eosinophils % (Manual) Basophils % (Manual) Nucleated RBC % Seg Neutrophils # Seg Neutrophils # Man Lymphocytes # (Manual) Monocytes # (Manual) Eosinophils # (Manual) PT INR Fibrinogen dRVVT Confirm Interp Factor V Activity POC ABG pH POC ABG pCO2 POC ABG pO2 Sodium Potassium Chloride Carbon Dioxide BUN Creatinine Glucose POC Glucose 119 H 155 H 124 H Lactic Acid Calcium Phosphorus Magnesium Direct Bilirubin AST ALT Alkaline Phosphatase Troponin T C-Reactive Protein Total Protein Albumin Prealbumin Triglycerides Cholesterol LDL Cholesterol Direct HDL Cholesterol Urine pH Urine WBC (Auto) Urine Creatinine Urine Total Protein Vancomycin Trough Rheumatoid Factor Complement C4 Miscellaneous Test Crossmatch 10/19/16 10/19/16 10/19/16 04:00 04:00 05:25 WBC 17.4 H RBC 2.54 L Hgb 7.7 L Hct 23.6 L MCV MCH MCHC RDW 17.3 H Plt Count Lymph % (Auto) Mcdonald % (Auto) Lymph # Mcdonald # Baso # Seg Neutrophils % Seg Neuts % (Manual) Lymphocytes % (Manual) Monocytes % (Manual) Eosinophils % (Manual) Basophils % (Manual) Nucleated RBC % Seg Neutrophils # Seg Neutrophils # Man Lymphocytes # (Manual) Monocytes # (Manual) Eosinophils # (Manual) PT INR Fibrinogen dRVVT Confirm Interp Factor V Activity POC ABG pH POC ABG pCO2 POC ABG pO2 Sodium Potassium Chloride Carbon Dioxide BUN 72 H Creatinine 2.1 H Glucose 116 H POC Glucose 119 H Lactic Acid Calcium Phosphorus Magnesium Direct Bilirubin AST ALT Alkaline Phosphatase Troponin T C-Reactive Protein Total Protein Albumin Prealbumin Triglycerides Cholesterol LDL Cholesterol Direct HDL Cholesterol Urine pH Urine WBC (Auto) Urine Creatinine Urine Total Protein Vancomycin Trough Rheumatoid Factor Complement C4 Miscellaneous Test Crossmatch 10/19/16 10/19/16 10/20/16 11:46 23:59 06:00 WBC RBC Hgb Hct MCV MCH MCHC RDW Plt Count Lymph % (Auto) Mcdonald % (Auto) Lymph # Mcdonald # Baso # Seg Neutrophils % Seg Neuts % (Manual) Lymphocytes % (Manual) Monocytes % (Manual) Eosinophils % (Manual) Basophils % (Manual) Nucleated RBC % Seg Neutrophils # Seg Neutrophils # Man Lymphocytes # (Manual) Monocytes # (Manual) Eosinophils # (Manual) PT INR Fibrinogen dRVVT Confirm Interp Factor V Activity POC ABG pH POC ABG pCO2 POC ABG pO2 Sodium Potassium Chloride Carbon Dioxide 17 L BUN 94 H Creatinine 2.7 H Glucose POC Glucose 116 H 117 H Lactic Acid Calcium Phosphorus Magnesium Direct Bilirubin AST ALT Alkaline Phosphatase Troponin T C-Reactive Protein Total Protein Albumin Prealbumin Triglycerides Cholesterol LDL Cholesterol Direct HDL Cholesterol Urine pH Urine WBC (Auto) Urine Creatinine Urine Total Protein Vancomycin Trough Rheumatoid Factor Complement C4 Miscellaneous Test Crossmatch 10/20/16 10/20/16 10/20/16 06:00 11:49 16:00 WBC 19.7 H RBC 2.51 L Hgb 7.7 L Hct 23.5 L MCV MCH MCHC RDW 17.5 H Plt Count Lymph % (Auto) Mcdonald % (Auto) Lymph # Mcdonald # Baso # Seg Neutrophils % Seg Neuts % (Manual) Lymphocytes % (Manual) Monocytes % (Manual) Eosinophils % (Manual) Basophils % (Manual) Nucleated RBC % Seg Neutrophils # Seg Neutrophils # Man Lymphocytes # (Manual) Monocytes # (Manual) Eosinophils # (Manual) PT INR Fibrinogen dRVVT Confirm Interp Factor V Activity POC ABG pH POC ABG pCO2 POC ABG pO2 Sodium Potassium Chloride Carbon Dioxide BUN Creatinine Glucose POC Glucose 117 H Lactic Acid Calcium Phosphorus Magnesium Direct Bilirubin AST ALT Alkaline Phosphatase Troponin T C-Reactive Protein Total Protein Albumin Prealbumin Triglycerides Cholesterol LDL Cholesterol Direct HDL Cholesterol Urine pH Urine WBC (Auto) Urine Creatinine Urine Total Protein Vancomycin Trough Rheumatoid Factor Complement C4 Miscellaneous Test Flexitest 1 H Crossmatch 10/20/16 10/20/16 10/21/16 18:36 23:39 04:00 WBC RBC Hgb Hct MCV MCH MCHC RDW Plt Count Lymph % (Auto) Mcdonald % (Auto) Lymph # Mcdonald # Baso # Seg Neutrophils % Seg Neuts % (Manual) Lymphocytes % (Manual) Monocytes % (Manual) Eosinophils % (Manual) Basophils % (Manual) Nucleated RBC % Seg Neutrophils # Seg Neutrophils # Man Lymphocytes # (Manual) Monocytes # (Manual) Eosinophils # (Manual) PT INR Fibrinogen dRVVT Confirm Interp Factor V Activity POC ABG pH POC ABG pCO2 POC ABG pO2 Sodium Potassium 5.4 H D Chloride Carbon Dioxide 15 L BUN 110 H Creatinine 3.0 H Glucose POC Glucose 127 H 114 H Lactic Acid Calcium Phosphorus Magnesium Direct Bilirubin AST ALT Alkaline Phosphatase Troponin T C-Reactive Protein Total Protein Albumin Prealbumin Triglycerides Cholesterol LDL Cholesterol Direct HDL Cholesterol Urine pH Urine WBC (Auto) Urine Creatinine Urine Total Protein Vancomycin Trough Rheumatoid Factor Complement C4 Miscellaneous Test Crossmatch 10/21/16 10/21/16 10/22/16 05:54 23:46 05:18 WBC RBC Hgb Hct MCV MCH MCHC RDW Plt Count Lymph % (Auto) Mcdonald % (Auto) Lymph # Mcdonald # Baso # Seg Neutrophils % Seg Neuts % (Manual) Lymphocytes % (Manual) Monocytes % (Manual) Eosinophils % (Manual) Basophils % (Manual) Nucleated RBC % Seg Neutrophils # Seg Neutrophils # Man Lymphocytes # (Manual) Monocytes # (Manual) Eosinophils # (Manual) PT INR Fibrinogen dRVVT Confirm Interp Factor V Activity POC ABG pH POC ABG pCO2 POC ABG pO2 Sodium Potassium Chloride Carbon Dioxide BUN Creatinine Glucose POC Glucose 119 H 108 H 109 H Lactic Acid Calcium Phosphorus Magnesium Direct Bilirubin AST ALT Alkaline Phosphatase Troponin T C-Reactive Protein Total Protein Albumin Prealbumin Triglycerides Cholesterol LDL Cholesterol Direct HDL Cholesterol Urine pH Urine WBC (Auto) Urine Creatinine Urine Total Protein Vancomycin Trough Rheumatoid Factor Complement C4 Miscellaneous Test Crossmatch 10/22/16 10/22/16 10/22/16 06:40 06:40 06:40 WBC 14.0 H RBC 2.03 L Hgb 7.0 L Hct 20.5 L MCV 98 H MCH 34 H MCHC 35 H RDW 17.8 H Plt Count Lymph % (Auto) Mcdonald % (Auto) 9.9 H Lymph # Mcdonald # 1.4 H Baso # 0.2 H Seg Neutrophils % 72.0 H Seg Neuts % (Manual) Lymphocytes % (Manual) Monocytes % (Manual) Eosinophils % (Manual) Basophils % (Manual) Nucleated RBC % Seg Neutrophils # 10.0 H Seg Neutrophils # Man Lymphocytes # (Manual) Monocytes # (Manual) Eosinophils # (Manual) PT INR Fibrinogen dRVVT Confirm Interp Factor V Activity POC ABG pH POC ABG pCO2 POC ABG pO2 Sodium 130 L D Potassium Chloride 92.4 L Carbon Dioxide 20 L BUN 50 H Creatinine 1.6 H Glucose 589 H* POC Glucose Lactic Acid Calcium 7.8 L D Phosphorus Magnesium 1.60 L Direct Bilirubin AST ALT Alkaline Phosphatase Troponin T C-Reactive Protein Total Protein Albumin Prealbumin Triglycerides Cholesterol LDL Cholesterol Direct HDL Cholesterol Urine pH Urine WBC (Auto) Urine Creatinine Urine Total Protein Vancomycin Trough Rheumatoid Factor Complement C4 Miscellaneous Test Crossmatch 10/22/16 10/22/16 10/22/16 11:39 16:44 23:36 WBC RBC Hgb Hct MCV MCH MCHC RDW Plt Count Lymph % (Auto) Mcdonald % (Auto) Lymph # Mcdonald # Baso # Seg Neutrophils % Seg Neuts % (Manual) Lymphocytes % (Manual) Monocytes % (Manual) Eosinophils % (Manual) Basophils % (Manual) Nucleated RBC % Seg Neutrophils # Seg Neutrophils # Man Lymphocytes # (Manual) Monocytes # (Manual) Eosinophils # (Manual) PT INR Fibrinogen dRVVT Confirm Interp Factor V Activity POC ABG pH POC ABG pCO2 POC ABG pO2 Sodium Potassium Chloride Carbon Dioxide BUN Creatinine Glucose POC Glucose 142 H 163 H 123 H Lactic Acid Calcium Phosphorus Magnesium Direct Bilirubin AST ALT Alkaline Phosphatase Troponin T C-Reactive Protein Total Protein Albumin Prealbumin Triglycerides Cholesterol LDL Cholesterol Direct HDL Cholesterol Urine pH Urine WBC (Auto) Urine Creatinine Urine Total Protein Vancomycin Trough Rheumatoid Factor Complement C4 Miscellaneous Test Crossmatch 10/23/16 10/23/16 10/23/16 04:58 06:00 12:12 WBC RBC Hgb Hct MCV MCH MCHC RDW Plt Count Lymph % (Auto) Mcdonald % (Auto) Lymph # Mcdonald # Baso # Seg Neutrophils % Seg Neuts % (Manual) Lymphocytes % (Manual) Monocytes % (Manual) Eosinophils % (Manual) Basophils % (Manual) Nucleated RBC % Seg Neutrophils # Seg Neutrophils # Man Lymphocytes # (Manual) Monocytes # (Manual) Eosinophils # (Manual) PT INR Fibrinogen dRVVT Confirm Interp Factor V Activity POC ABG pH POC ABG pCO2 POC ABG pO2 Sodium 133 L Potassium 3.5 L Chloride 96.1 L Carbon Dioxide 18 L BUN 76 H Creatinine 2.1 H Glucose POC Glucose 133 H 138 H Lactic Acid Calcium 8.3 L Phosphorus Magnesium Direct Bilirubin AST ALT Alkaline Phosphatase Troponin T C-Reactive Protein Total Protein Albumin Prealbumin Triglycerides Cholesterol LDL Cholesterol Direct HDL Cholesterol Urine pH Urine WBC (Auto) Urine Creatinine Urine Total Protein Vancomycin Trough Rheumatoid Factor Complement C4 Miscellaneous Test Crossmatch 10/23/16 10/23/16 10/24/16 16:53 23:37 04:00 WBC RBC Hgb Hct MCV MCH MCHC RDW Plt Count Lymph % (Auto) Mcdonald % (Auto) Lymph # Mcdonald # Baso # Seg Neutrophils % Seg Neuts % (Manual) Lymphocytes % (Manual) Monocytes % (Manual) Eosinophils % (Manual) Basophils % (Manual) Nucleated RBC % Seg Neutrophils # Seg Neutrophils # Man Lymphocytes # (Manual) Monocytes # (Manual) Eosinophils # (Manual) PT INR Fibrinogen dRVVT Confirm Interp Factor V Activity POC ABG pH POC ABG pCO2 POC ABG pO2 Sodium 131 L Potassium Chloride 94.5 L Carbon Dioxide 19 L BUN 97 H Creatinine 2.6 H Glucose 110 H POC Glucose 125 H 123 H Lactic Acid Calcium 8.3 L Phosphorus Magnesium Direct Bilirubin AST ALT Alkaline Phosphatase Troponin T C-Reactive Protein Total Protein Albumin Prealbumin Triglycerides Cholesterol LDL Cholesterol Direct HDL Cholesterol Urine pH Urine WBC (Auto) Urine Creatinine Urine Total Protein Vancomycin Trough Rheumatoid Factor Complement C4 Miscellaneous Test Crossmatch 10/24/16 10/24/16 10/24/16 07:49 11:39 17:52 WBC RBC Hgb 6.0 L Hct 19.7 L* MCV MCH MCHC RDW Plt Count Lymph % (Auto) Mcdonald % (Auto) Lymph # Mcdonald # Baso # Seg Neutrophils % Seg Neuts % (Manual) Lymphocytes % (Manual) Monocytes % (Manual) Eosinophils % (Manual) Basophils % (Manual) Nucleated RBC % Seg Neutrophils # Seg Neutrophils # Man Lymphocytes # (Manual) Monocytes # (Manual) Eosinophils # (Manual) PT INR Fibrinogen dRVVT Confirm Interp Factor V Activity POC ABG pH POC ABG pCO2 POC ABG pO2 Sodium Potassium Chloride Carbon Dioxide BUN Creatinine Glucose POC Glucose 106 H 158 H Lactic Acid Calcium Phosphorus Magnesium Direct Bilirubin AST ALT Alkaline Phosphatase Troponin T C-Reactive Protein Total Protein Albumin Prealbumin Triglycerides Cholesterol LDL Cholesterol Direct HDL Cholesterol Urine pH Urine WBC (Auto) Urine Creatinine Urine Total Protein Vancomycin Trough Rheumatoid Factor Complement C4 Miscellaneous Test Crossmatch 10/24/16 10/24/16 10/24/16 20:00 22:27 Unknown WBC RBC Hgb 9.4 L D Hct 27.5 L D MCV MCH MCHC RDW Plt Count Lymph % (Auto) Mcdonald % (Auto) Lymph # Mcdonald # Baso # Seg Neutrophils % Seg Neuts % (Manual) Lymphocytes % (Manual) Monocytes % (Manual) Eosinophils % (Manual) Basophils % (Manual) Nucleated RBC % Seg Neutrophils # Seg Neutrophils # Man Lymphocytes # (Manual) Monocytes # (Manual) Eosinophils # (Manual) PT INR Fibrinogen dRVVT Confirm Interp Factor V Activity POC ABG pH POC ABG pCO2 POC ABG pO2 Sodium Potassium Chloride Carbon Dioxide BUN Creatinine Glucose POC Glucose 125 H Lactic Acid Calcium Phosphorus Magnesium Direct Bilirubin AST ALT Alkaline Phosphatase Troponin T C-Reactive Protein Total Protein Albumin Prealbumin Triglycerides Cholesterol LDL Cholesterol Direct HDL Cholesterol Urine pH Urine WBC (Auto) Urine Creatinine Urine Total Protein Vancomycin Trough Rheumatoid Factor Complement C4 Miscellaneous Test Crossmatch See Detail 10/25/16 10/25/16 10/25/16 04:00 04:00 04:00 WBC 14.2 H RBC 2.98 L Hgb 9.0 L Hct 26.2 L MCV MCH MCHC RDW 16.6 H Plt Count Lymph % (Auto) Mcdonald % (Auto) 10.7 H Lymph # Mcdonald # 1.5 H Baso # Seg Neutrophils % 73.6 H Seg Neuts % (Manual) Lymphocytes % (Manual) Monocytes % (Manual) Eosinophils % (Manual) Basophils % (Manual) Nucleated RBC % Seg Neutrophils # 10.5 H Seg Neutrophils # Man Lymphocytes # (Manual) Monocytes # (Manual) Eosinophils # (Manual) PT INR Fibrinogen dRVVT Confirm Interp Factor V Activity POC ABG pH POC ABG pCO2 POC ABG pO2 Sodium 132 L Potassium Chloride 94.7 L Carbon Dioxide BUN 51 H Creatinine 1.6 H Glucose 130 H POC Glucose Lactic Acid Calcium 8.3 L Phosphorus 1.60 L D Magnesium Direct Bilirubin AST ALT Alkaline Phosphatase Troponin T C-Reactive Protein Total Protein Albumin Prealbumin Triglycerides Cholesterol LDL Cholesterol Direct HDL Cholesterol Urine pH Urine WBC (Auto) Urine Creatinine Urine Total Protein Vancomycin Trough Rheumatoid Factor Complement C4 Miscellaneous Test Crossmatch 10/25/16 10/25/16 10/25/16 04:32 11:48 17:22 WBC RBC Hgb Hct MCV MCH MCHC RDW Plt Count Lymph % (Auto) Mcdonald % (Auto) Lymph # Mcdonald # Baso # Seg Neutrophils % Seg Neuts % (Manual) Lymphocytes % (Manual) Monocytes % (Manual) Eosinophils % (Manual) Basophils % (Manual) Nucleated RBC % Seg Neutrophils # Seg Neutrophils # Man Lymphocytes # (Manual) Monocytes # (Manual) Eosinophils # (Manual) PT INR Fibrinogen dRVVT Confirm Interp Factor V Activity POC ABG pH POC ABG pCO2 POC ABG pO2 Sodium Potassium Chloride Carbon Dioxide BUN Creatinine Glucose POC Glucose 124 H 171 H 120 H Lactic Acid Calcium Phosphorus Magnesium Direct Bilirubin AST ALT Alkaline Phosphatase Troponin T C-Reactive Protein Total Protein Albumin Prealbumin Triglycerides Cholesterol LDL Cholesterol Direct HDL Cholesterol Urine pH Urine WBC (Auto) Urine Creatinine Urine Total Protein Vancomycin Trough Rheumatoid Factor Complement C4 Miscellaneous Test Crossmatch 10/26/16 10/26/16 10/26/16 04:54 07:06 07:06 WBC 16.9 H RBC 3.06 L Hgb 9.1 L Hct 26.9 L MCV MCH MCHC RDW 16.9 H Plt Count Lymph % (Auto) Mcdonald % (Auto) Lymph # Mcdonald # Baso # Seg Neutrophils % Seg Neuts % (Manual) 71.0 H Lymphocytes % (Manual) 5.0 L Monocytes % (Manual) 12.0 H Eosinophils % (Manual) Basophils % (Manual) Nucleated RBC % Seg Neutrophils # Seg Neutrophils # Man 12.0 H Lymphocytes # (Manual) 0.8 L Monocytes # (Manual) 2.0 H Eosinophils # (Manual) PT INR Fibrinogen dRVVT Confirm Interp Factor V Activity POC ABG pH POC ABG pCO2 POC ABG pO2 Sodium 135 L Potassium Chloride 97.1 L Carbon Dioxide BUN 73 H Creatinine 2.2 H Glucose 117 H POC Glucose 123 H Lactic Acid Calcium Phosphorus 1.70 L Magnesium Direct Bilirubin AST ALT Alkaline Phosphatase Troponin T C-Reactive Protein Total Protein Albumin Prealbumin Triglycerides Cholesterol LDL Cholesterol Direct HDL Cholesterol Urine pH Urine WBC (Auto) Urine Creatinine Urine Total Protein Vancomycin Trough Rheumatoid Factor Complement C4 Miscellaneous Test Crossmatch 10/26/16 10/26/16 10/26/16 12:12 17:29 23:42 WBC RBC Hgb Hct MCV MCH MCHC RDW Plt Count Lymph % (Auto) Mcdonald % (Auto) Lymph # Mcdonald # Baso # Seg Neutrophils % Seg Neuts % (Manual) Lymphocytes % (Manual) Monocytes % (Manual) Eosinophils % (Manual) Basophils % (Manual) Nucleated RBC % Seg Neutrophils # Seg Neutrophils # Man Lymphocytes # (Manual) Monocytes # (Manual) Eosinophils # (Manual) PT INR Fibrinogen dRVVT Confirm Interp Factor V Activity POC ABG pH POC ABG pCO2 POC ABG pO2 Sodium Potassium Chloride Carbon Dioxide BUN Creatinine Glucose POC Glucose 126 H 161 H 118 H Lactic Acid Calcium Phosphorus Magnesium Direct Bilirubin AST ALT Alkaline Phosphatase Troponin T C-Reactive Protein Total Protein Albumin Prealbumin Triglycerides Cholesterol LDL Cholesterol Direct HDL Cholesterol Urine pH Urine WBC (Auto) Urine Creatinine Urine Total Protein Vancomycin Trough Rheumatoid Factor Complement C4 Miscellaneous Test Crossmatch 10/27/16 10/27/16 10/27/16 05:03 06:30 06:30 WBC 13.9 H RBC 3.09 L Hgb 9.2 L Hct 27.5 L MCV MCH MCHC RDW 17.0 H Plt Count Lymph % (Auto) Mcdonald % (Auto) Lymph # Mcdonald # Baso # Seg Neutrophils % Seg Neuts % (Manual) 78.0 H Lymphocytes % (Manual) Monocytes % (Manual) Eosinophils % (Manual) Basophils % (Manual) Nucleated RBC % 2.0 H Seg Neutrophils # Seg Neutrophils # Man 10.8 H Lymphocytes # (Manual) Monocytes # (Manual) 1.0 H Eosinophils # (Manual) PT INR Fibrinogen dRVVT Confirm Interp Factor V Activity POC ABG pH POC ABG pCO2 POC ABG pO2 Sodium Potassium Chloride Carbon Dioxide BUN 40 H Creatinine 1.5 H Glucose 135 H POC Glucose 107 H Lactic Acid Calcium 8.3 L Phosphorus 1.30 L D Magnesium Direct Bilirubin AST ALT Alkaline Phosphatase Troponin T C-Reactive Protein Total Protein Albumin Prealbumin Triglycerides Cholesterol LDL Cholesterol Direct HDL Cholesterol Urine pH Urine WBC (Auto) Urine Creatinine Urine Total Protein Vancomycin Trough Rheumatoid Factor Complement C4 Miscellaneous Test Crossmatch 10/27/16 10/27/16 10/27/16 13:27 18:07 23:40 WBC RBC Hgb Hct MCV MCH MCHC RDW Plt Count Lymph % (Auto) Mcdonald % (Auto) Lymph # Mcdonald # Baso # Seg Neutrophils % Seg Neuts % (Manual) Lymphocytes % (Manual) Monocytes % (Manual) Eosinophils % (Manual) Basophils % (Manual) Nucleated RBC % Seg Neutrophils # Seg Neutrophils # Man Lymphocytes # (Manual) Monocytes # (Manual) Eosinophils # (Manual) PT INR Fibrinogen dRVVT Confirm Interp Factor V Activity POC ABG pH POC ABG pCO2 POC ABG pO2 Sodium Potassium Chloride Carbon Dioxide BUN Creatinine Glucose POC Glucose 117 H 121 H 118 H Lactic Acid Calcium Phosphorus Magnesium Direct Bilirubin AST ALT Alkaline Phosphatase Troponin T C-Reactive Protein Total Protein Albumin Prealbumin Triglycerides Cholesterol LDL Cholesterol Direct HDL Cholesterol Urine pH Urine WBC (Auto) Urine Creatinine Urine Total Protein Vancomycin Trough Rheumatoid Factor Complement C4 Miscellaneous Test Crossmatch 10/28/16 10/28/16 10/28/16 05:48 06:45 06:45 WBC 14.7 H RBC 3.05 L Hgb 9.0 L Hct 26.9 L MCV MCH MCHC RDW 16.8 H Plt Count Lymph % (Auto) 8.2 L Mcdonald % (Auto) 8.4 H Lymph # Mcdonald # 1.2 H Baso # Seg Neutrophils % 81.9 H Seg Neuts % (Manual) Lymphocytes % (Manual) Monocytes % (Manual) Eosinophils % (Manual) Basophils % (Manual) Nucleated RBC % Seg Neutrophils # 12.1 H Seg Neutrophils # Man Lymphocytes # (Manual) Monocytes # (Manual) Eosinophils # (Manual) PT INR Fibrinogen dRVVT Confirm Interp Factor V Activity POC ABG pH POC ABG pCO2 POC ABG pO2 Sodium Potassium Chloride Carbon Dioxide BUN 60 H Creatinine 1.9 H Glucose 120 H POC Glucose 114 H Lactic Acid Calcium Phosphorus Magnesium Direct Bilirubin AST ALT Alkaline Phosphatase Troponin T C-Reactive Protein Total Protein Albumin Prealbumin Triglycerides Cholesterol LDL Cholesterol Direct HDL Cholesterol Urine pH Urine WBC (Auto) Urine Creatinine Urine Total Protein Vancomycin Trough Rheumatoid Factor Complement C4 Miscellaneous Test Crossmatch 10/28/16 10/28/16 10/29/16 17:08 23:50 05:10 WBC RBC Hgb Hct MCV MCH MCHC RDW Plt Count Lymph % (Auto) Mcdonald % (Auto) Lymph # Mcdonald # Baso # Seg Neutrophils % Seg Neuts % (Manual) Lymphocytes % (Manual) Monocytes % (Manual) Eosinophils % (Manual) Basophils % (Manual) Nucleated RBC % Seg Neutrophils # Seg Neutrophils # Man Lymphocytes # (Manual) Monocytes # (Manual) Eosinophils # (Manual) PT INR Fibrinogen dRVVT Confirm Interp Factor V Activity POC ABG pH POC ABG pCO2 POC ABG pO2 Sodium Potassium Chloride Carbon Dioxide BUN Creatinine Glucose POC Glucose 109 H 110 H 124 H Lactic Acid Calcium Phosphorus Magnesium Direct Bilirubin AST ALT Alkaline Phosphatase Troponin T C-Reactive Protein Total Protein Albumin Prealbumin Triglycerides Cholesterol LDL Cholesterol Direct HDL Cholesterol Urine pH Urine WBC (Auto) Urine Creatinine Urine Total Protein Vancomycin Trough Rheumatoid Factor Complement C4 Miscellaneous Test Crossmatch 10/29/16 10/29/16 10/29/16 07:45 07:45 12:19 WBC 14.7 H RBC 3.15 L Hgb 9.3 L Hct 28.9 L MCV MCH MCHC RDW 17.0 H Plt Count Lymph % (Auto) 11.9 L Mcdonald % (Auto) 8.6 H Lymph # Mcdonald # 1.3 H Baso # Seg Neutrophils % 78.1 H Seg Neuts % (Manual) Lymphocytes % (Manual) Monocytes % (Manual) Eosinophils % (Manual) Basophils % (Manual) Nucleated RBC % Seg Neutrophils # 11.4 H Seg Neutrophils # Man Lymphocytes # (Manual) Monocytes # (Manual) Eosinophils # (Manual) PT INR Fibrinogen dRVVT Confirm Interp Factor V Activity POC ABG pH POC ABG pCO2 POC ABG pO2 Sodium Potassium 5.1 H Chloride Carbon Dioxide 19 L BUN 78 H Creatinine 2.2 H Glucose 116 H POC Glucose 118 H Lactic Acid Calcium Phosphorus Magnesium Direct Bilirubin AST ALT Alkaline Phosphatase Troponin T C-Reactive Protein Total Protein Albumin Prealbumin Triglycerides Cholesterol LDL Cholesterol Direct HDL Cholesterol Urine pH Urine WBC (Auto) Urine Creatinine Urine Total Protein Vancomycin Trough Rheumatoid Factor Complement C4 Miscellaneous Test Crossmatch 10/29/16 10/30/16 10/30/16 17:49 01:52 03:28 WBC RBC Hgb Hct MCV MCH MCHC RDW Plt Count Lymph % (Auto) Mcdonald % (Auto) Lymph # Mcdonald # Baso # Seg Neutrophils % Seg Neuts % (Manual) Lymphocytes % (Manual) Monocytes % (Manual) Eosinophils % (Manual) Basophils % (Manual) Nucleated RBC % Seg Neutrophils # Seg Neutrophils # Man Lymphocytes # (Manual) Monocytes # (Manual) Eosinophils # (Manual) PT INR Fibrinogen dRVVT Confirm Interp Factor V Activity POC ABG pH POC ABG pCO2 POC ABG pO2 Sodium Potassium 5.4 H Chloride 97.5 L Carbon Dioxide 19 L BUN 90 H Creatinine 2.5 H Glucose POC Glucose 120 H 129 H Lactic Acid Calcium Phosphorus 5.20 H Magnesium Direct Bilirubin AST ALT Alkaline Phosphatase Troponin T C-Reactive Protein Total Protein Albumin Prealbumin Triglycerides Cholesterol LDL Cholesterol Direct HDL Cholesterol Urine pH Urine WBC (Auto) Urine Creatinine Urine Total Protein Vancomycin Trough Rheumatoid Factor Complement C4 Miscellaneous Test Crossmatch 10/30/16 10/30/16 10/30/16 03:28 08:19 08:19 WBC 11.6 H 15.9 H RBC 2.75 L 2.82 L Hgb 7.9 L 8.3 L Hct 24.2 L 25.2 L MCV MCH MCHC RDW 16.7 H 17.2 H Plt Count Lymph % (Auto) Mcdonald % (Auto) 9.8 H Lymph # Mcdonald # 1.1 H Baso # Seg Neutrophils % 74.2 H Seg Neuts % (Manual) Lymphocytes % (Manual) Monocytes % (Manual) Eosinophils % (Manual) Basophils % (Manual) Nucleated RBC % Seg Neutrophils # 8.6 H Seg Neutrophils # Man Lymphocytes # (Manual) Monocytes # (Manual) Eosinophils # (Manual) PT INR Fibrinogen dRVVT Confirm Interp Factor V Activity POC ABG pH POC ABG pCO2 POC ABG pO2 Sodium Potassium 5.3 H Chloride 97.4 L Carbon Dioxide 19 L BUN 93 H Creatinine 2.6 H Glucose POC Glucose Lactic Acid Calcium Phosphorus Magnesium Direct Bilirubin AST ALT Alkaline Phosphatase Troponin T C-Reactive Protein Total Protein Albumin Prealbumin Triglycerides Cholesterol LDL Cholesterol Direct HDL Cholesterol Urine pH Urine WBC (Auto) Urine Creatinine Urine Total Protein Vancomycin Trough Rheumatoid Factor Complement C4 Miscellaneous Test Crossmatch 10/30/16 10/30/16 10/31/16 17:11 23:56 00:40 WBC RBC Hgb Hct MCV MCH MCHC RDW Plt Count Lymph % (Auto) Mcdonald % (Auto) Lymph # Mcdonald # Baso # Seg Neutrophils % Seg Neuts % (Manual) Lymphocytes % (Manual) Monocytes % (Manual) Eosinophils % (Manual) Basophils % (Manual) Nucleated RBC % Seg Neutrophils # Seg Neutrophils # Man Lymphocytes # (Manual) Monocytes # (Manual) Eosinophils # (Manual) PT INR Fibrinogen dRVVT Confirm Interp Factor V Activity POC ABG pH POC ABG pCO2 POC ABG pO2 Sodium Potassium Chloride Carbon Dioxide BUN Creatinine Glucose POC Glucose 106 H 117 H 120 H Lactic Acid Calcium Phosphorus Magnesium Direct Bilirubin AST ALT Alkaline Phosphatase Troponin T C-Reactive Protein Total Protein Albumin Prealbumin Triglycerides Cholesterol LDL Cholesterol Direct HDL Cholesterol Urine pH Urine WBC (Auto) Urine Creatinine Urine Total Protein Vancomycin Trough Rheumatoid Factor Complement C4 Miscellaneous Test Crossmatch 10/31/16 10/31/16 10/31/16 05:43 07:15 07:15 WBC 12.1 H RBC 2.63 L Hgb 7.7 L Hct 23.3 L MCV MCH MCHC RDW 16.7 H Plt Count Lymph % (Auto) 11.7 L Mcdonald % (Auto) 7.7 H Lymph # Mcdonald # 0.9 H Baso # Seg Neutrophils % 78.0 H Seg Neuts % (Manual) Lymphocytes % (Manual) Monocytes % (Manual) Eosinophils % (Manual) Basophils % (Manual) Nucleated RBC % Seg Neutrophils # 9.4 H Seg Neutrophils # Man Lymphocytes # (Manual) Monocytes # (Manual) Eosinophils # (Manual) PT INR Fibrinogen dRVVT Confirm Interp Factor V Activity POC ABG pH POC ABG pCO2 POC ABG pO2 Sodium Potassium Chloride 96.4 L Carbon Dioxide 21 L BUN 99 H Creatinine 2.6 H Glucose 144 H POC Glucose 125 H Lactic Acid Calcium Phosphorus 4.80 H Magnesium Direct Bilirubin AST ALT Alkaline Phosphatase Troponin T C-Reactive Protein Total Protein Albumin Prealbumin Triglycerides Cholesterol LDL Cholesterol Direct HDL Cholesterol Urine pH Urine WBC (Auto) Urine Creatinine Urine Total Protein Vancomycin Trough Rheumatoid Factor Complement C4 Miscellaneous Test Crossmatch 10/31/16 10/31/16 11/01/16 11:46 18:34 00:20 WBC RBC Hgb Hct MCV MCH MCHC RDW Plt Count Lymph % (Auto) Mcdonald % (Auto) Lymph # Mcdonald # Baso # Seg Neutrophils % Seg Neuts % (Manual) Lymphocytes % (Manual) Monocytes % (Manual) Eosinophils % (Manual) Basophils % (Manual) Nucleated RBC % Seg Neutrophils # Seg Neutrophils # Man Lymphocytes # (Manual) Monocytes # (Manual) Eosinophils # (Manual) PT INR Fibrinogen dRVVT Confirm Interp Factor V Activity POC ABG pH POC ABG pCO2 POC ABG pO2 Sodium Potassium Chloride Carbon Dioxide BUN Creatinine Glucose POC Glucose 159 H 140 H 132 H Lactic Acid Calcium Phosphorus Magnesium Direct Bilirubin AST ALT Alkaline Phosphatase Troponin T C-Reactive Protein Total Protein Albumin Prealbumin Triglycerides Cholesterol LDL Cholesterol Direct HDL Cholesterol Urine pH Urine WBC (Auto) Urine Creatinine Urine Total Protein Vancomycin Trough Rheumatoid Factor Complement C4 Miscellaneous Test Crossmatch 11/01/16 11/01/16 11/01/16 04:55 04:55 06:11 WBC 11.2 H RBC 2.68 L Hgb 7.5 L Hct 23.7 L MCV MCH MCHC RDW 16.1 H Plt Count Lymph % (Auto) Mcdonald % (Auto) 9.8 H Lymph # Mcdonald # 1.1 H Baso # Seg Neutrophils % 70.8 H Seg Neuts % (Manual) Lymphocytes % (Manual) Monocytes % (Manual) Eosinophils % (Manual) Basophils % (Manual) Nucleated RBC % Seg Neutrophils # 7.9 H Seg Neutrophils # Man Lymphocytes # (Manual) Monocytes # (Manual) Eosinophils # (Manual) PT INR Fibrinogen dRVVT Confirm Interp Factor V Activity POC ABG pH POC ABG pCO2 POC ABG pO2 Sodium Potassium 3.3 L D Chloride Carbon Dioxide BUN 61 H Creatinine 1.9 H Glucose 114 H POC Glucose 115 H Lactic Acid Calcium Phosphorus 1.80 L D Magnesium Direct Bilirubin AST ALT Alkaline Phosphatase Troponin T C-Reactive Protein Total Protein Albumin Prealbumin Triglycerides Cholesterol LDL Cholesterol Direct HDL Cholesterol Urine pH Urine WBC (Auto) Urine Creatinine Urine Total Protein Vancomycin Trough Rheumatoid Factor Complement C4 Miscellaneous Test Crossmatch 11/01/16 11/01/16 11/01/16 12:29 18:23 23:58 WBC RBC Hgb Hct MCV MCH MCHC RDW Plt Count Lymph % (Auto) Mcdonald % (Auto) Lymph # Mcdonald # Baso # Seg Neutrophils % Seg Neuts % (Manual) Lymphocytes % (Manual) Monocytes % (Manual) Eosinophils % (Manual) Basophils % (Manual) Nucleated RBC % Seg Neutrophils # Seg Neutrophils # Man Lymphocytes # (Manual) Monocytes # (Manual) Eosinophils # (Manual) PT INR Fibrinogen dRVVT Confirm Interp Factor V Activity POC ABG pH POC ABG pCO2 POC ABG pO2 Sodium Potassium Chloride Carbon Dioxide BUN Creatinine Glucose POC Glucose 142 H 143 H 128 H Lactic Acid Calcium Phosphorus Magnesium Direct Bilirubin AST ALT Alkaline Phosphatase Troponin T C-Reactive Protein Total Protein Albumin Prealbumin Triglycerides Cholesterol LDL Cholesterol Direct HDL Cholesterol Urine pH Urine WBC (Auto) Urine Creatinine Urine Total Protein Vancomycin Trough Rheumatoid Factor Complement C4 Miscellaneous Test Crossmatch 11/02/16 11/02/16 11/02/16 04:16 05:29 11:58 WBC RBC Hgb Hct MCV MCH MCHC RDW Plt Count Lymph % (Auto) Mcdonald % (Auto) Lymph # Mcdonald # Baso # Seg Neutrophils % Seg Neuts % (Manual) Lymphocytes % (Manual) Monocytes % (Manual) Eosinophils % (Manual) Basophils % (Manual) Nucleated RBC % Seg Neutrophils # Seg Neutrophils # Man Lymphocytes # (Manual) Monocytes # (Manual) Eosinophils # (Manual) PT INR Fibrinogen dRVVT Confirm Interp Factor V Activity POC ABG pH POC ABG pCO2 POC ABG pO2 Sodium Potassium 3.1 L Chloride Carbon Dioxide BUN 73 H Creatinine 2.3 H Glucose 112 H POC Glucose 135 H 149 H Lactic Acid Calcium Phosphorus Magnesium Direct Bilirubin AST ALT Alkaline Phosphatase Troponin T C-Reactive Protein Total Protein Albumin Prealbumin Triglycerides Cholesterol LDL Cholesterol Direct HDL Cholesterol Urine pH Urine WBC (Auto) Urine Creatinine Urine Total Protein Vancomycin Trough Rheumatoid Factor Complement C4 Miscellaneous Test Crossmatch 11/02/16 11/02/16 11/03/16 17:42 22:54 06:00 WBC RBC Hgb Hct MCV MCH MCHC RDW Plt Count Lymph % (Auto) Mcdonald % (Auto) Lymph # Mcdonald # Baso # Seg Neutrophils % Seg Neuts % (Manual) Lymphocytes % (Manual) Monocytes % (Manual) Eosinophils % (Manual) Basophils % (Manual) Nucleated RBC % Seg Neutrophils # Seg Neutrophils # Man Lymphocytes # (Manual) Monocytes # (Manual) Eosinophils # (Manual) PT INR Fibrinogen dRVVT Confirm Interp Factor V Activity POC ABG pH POC ABG pCO2 POC ABG pO2 Sodium Potassium Chloride 96.7 L Carbon Dioxide BUN 41 H Creatinine 1.5 H Glucose 145 H POC Glucose 182 H 115 H Lactic Acid Calcium Phosphorus 1.60 L D Magnesium 1.50 L Direct Bilirubin AST ALT Alkaline Phosphatase Troponin T C-Reactive Protein Total Protein Albumin Prealbumin Triglycerides Cholesterol LDL Cholesterol Direct HDL Cholesterol Urine pH Urine WBC (Auto) Urine Creatinine Urine Total Protein Vancomycin Trough Rheumatoid Factor Complement C4 Miscellaneous Test Crossmatch 11/03/16 11/03/16 11/03/16 11:53 17:45 23:37 WBC RBC Hgb Hct MCV MCH MCHC RDW Plt Count Lymph % (Auto) Mcdonald % (Auto) Lymph # Mcdonald # Baso # Seg Neutrophils % Seg Neuts % (Manual) Lymphocytes % (Manual) Monocytes % (Manual) Eosinophils % (Manual) Basophils % (Manual) Nucleated RBC % Seg Neutrophils # Seg Neutrophils # Man Lymphocytes # (Manual) Monocytes # (Manual) Eosinophils # (Manual) PT INR Fibrinogen dRVVT Confirm Interp Factor V Activity POC ABG pH POC ABG pCO2 POC ABG pO2 Sodium Potassium Chloride Carbon Dioxide BUN Creatinine Glucose POC Glucose 131 H 134 H 113 H Lactic Acid Calcium Phosphorus Magnesium Direct Bilirubin AST ALT Alkaline Phosphatase Troponin T C-Reactive Protein Total Protein Albumin Prealbumin Triglycerides Cholesterol LDL Cholesterol Direct HDL Cholesterol Urine pH Urine WBC (Auto) Urine Creatinine Urine Total Protein Vancomycin Trough Rheumatoid Factor Complement C4 Miscellaneous Test Crossmatch 11/04/16 11/04/16 11/04/16 05:41 06:00 12:10 WBC RBC Hgb Hct MCV MCH MCHC RDW Plt Count Lymph % (Auto) Mcdonald % (Auto) Lymph # Mcdonald # Baso # Seg Neutrophils % Seg Neuts % (Manual) Lymphocytes % (Manual) Monocytes % (Manual) Eosinophils % (Manual) Basophils % (Manual) Nucleated RBC % Seg Neutrophils # Seg Neutrophils # Man Lymphocytes # (Manual) Monocytes # (Manual) Eosinophils # (Manual) PT INR Fibrinogen dRVVT Confirm Interp Factor V Activity POC ABG pH POC ABG pCO2 POC ABG pO2 Sodium Potassium Chloride 96.7 L Carbon Dioxide BUN 52 H Creatinine 1.9 H Glucose 126 H POC Glucose 137 H 191 H Lactic Acid Calcium Phosphorus Magnesium Direct Bilirubin AST ALT Alkaline Phosphatase Troponin T C-Reactive Protein Total Protein Albumin Prealbumin Triglycerides Cholesterol LDL Cholesterol Direct HDL Cholesterol Urine pH Urine WBC (Auto) Urine Creatinine Urine Total Protein Vancomycin Trough Rheumatoid Factor Complement C4 Miscellaneous Test Crossmatch 11/04/16 11/05/16 11/05/16 22:57 03:10 05:10 WBC RBC Hgb Hct MCV MCH MCHC RDW Plt Count Lymph % (Auto) Mcdonald % (Auto) Lymph # Mcdonald # Baso # Seg Neutrophils % Seg Neuts % (Manual) Lymphocytes % (Manual) Monocytes % (Manual) Eosinophils % (Manual) Basophils % (Manual) Nucleated RBC % Seg Neutrophils # Seg Neutrophils # Man Lymphocytes # (Manual) Monocytes # (Manual) Eosinophils # (Manual) PT INR Fibrinogen dRVVT Confirm Interp Factor V Activity POC ABG pH POC ABG pCO2 POC ABG pO2 Sodium 136 L Potassium Chloride 97.2 L Carbon Dioxide BUN 32 H Creatinine 1.3 H Glucose 123 H POC Glucose 125 H 108 H Lactic Acid Calcium 7.8 L Phosphorus Magnesium Direct Bilirubin AST ALT Alkaline Phosphatase Troponin T C-Reactive Protein Total Protein Albumin Prealbumin Triglycerides Cholesterol LDL Cholesterol Direct HDL Cholesterol Urine pH Urine WBC (Auto) Urine Creatinine Urine Total Protein Vancomycin Trough Rheumatoid Factor Complement C4 Miscellaneous Test Crossmatch 11/05/16 11/05/16 11/05/16 12:23 13:09 13:25 WBC RBC Hgb Hct MCV MCH MCHC RDW Plt Count Lymph % (Auto) Mcdonald % (Auto) Lymph # Mcdonald # Baso # Seg Neutrophils % Seg Neuts % (Manual) Lymphocytes % (Manual) Monocytes % (Manual) Eosinophils % (Manual) Basophils % (Manual) Nucleated RBC % Seg Neutrophils # Seg Neutrophils # Man Lymphocytes # (Manual) Monocytes # (Manual) Eosinophils # (Manual) PT INR Fibrinogen dRVVT Confirm Interp Factor V Activity POC ABG pH POC ABG pCO2 POC ABG pO2 Sodium Potassium Chloride Carbon Dioxide BUN Creatinine Glucose POC Glucose 124 H Lactic Acid Calcium Phosphorus Magnesium Direct Bilirubin AST ALT Alkaline Phosphatase Troponin T C-Reactive Protein 11.40 H Total Protein Albumin Prealbumin Triglycerides Cholesterol LDL Cholesterol Direct HDL Cholesterol Urine pH 9.0 H Urine WBC (Auto) Urine Creatinine Urine Total Protein Vancomycin Trough Rheumatoid Factor Complement C4 Miscellaneous Test Crossmatch 11/05/16 11/05/16 11/06/16 17:54 23:42 04:56 WBC RBC Hgb Hct MCV MCH MCHC RDW Plt Count Lymph % (Auto) Mcdonald % (Auto) Lymph # Mcdonald # Baso # Seg Neutrophils % Seg Neuts % (Manual) Lymphocytes % (Manual) Monocytes % (Manual) Eosinophils % (Manual) Basophils % (Manual) Nucleated RBC % Seg Neutrophils # Seg Neutrophils # Man Lymphocytes # (Manual) Monocytes # (Manual) Eosinophils # (Manual) PT INR Fibrinogen dRVVT Confirm Interp Factor V Activity POC ABG pH POC ABG pCO2 POC ABG pO2 Sodium Potassium Chloride Carbon Dioxide BUN Creatinine Glucose POC Glucose 114 H 134 H 120 H Lactic Acid Calcium Phosphorus Magnesium Direct Bilirubin AST ALT Alkaline Phosphatase Troponin T C-Reactive Protein Total Protein Albumin Prealbumin Triglycerides Cholesterol LDL Cholesterol Direct HDL Cholesterol Urine pH Urine WBC (Auto) Urine Creatinine Urine Total Protein Vancomycin Trough Rheumatoid Factor Complement C4 Miscellaneous Test Crossmatch 11/06/16 11/06/16 06:25 06:25 WBC RBC 2.50 L Hgb 7.3 L Hct 22.5 L MCV MCH MCHC RDW 16.9 H Plt Count Lymph % (Auto) Mcdonald % (Auto) 10.5 H Lymph # Mcdonald # 1.1 H Baso # Seg Neutrophils % Seg Neuts % (Manual) Lymphocytes % (Manual) Monocytes % (Manual) Eosinophils % (Manual) Basophils % (Manual) Nucleated RBC % Seg Neutrophils # Seg Neutrophils # Man Lymphocytes # (Manual) Monocytes # (Manual) Eosinophils # (Manual) PT INR Fibrinogen dRVVT Confirm Interp Factor V Activity POC ABG pH POC ABG pCO2 POC ABG pO2 Sodium Potassium 5.1 H Chloride 95.9 L Carbon Dioxide BUN 52 H Creatinine 1.8 H Glucose 117 H POC Glucose Lactic Acid Calcium Phosphorus Magnesium Direct Bilirubin AST 103 H ALT 77 H Alkaline Phosphatase 285 H Troponin T C-Reactive Protein Total Protein 6.2 L Albumin 1.8 L Prealbumin 0.180 L Triglycerides Cholesterol LDL Cholesterol Direct HDL Cholesterol Urine pH Urine WBC (Auto) Urine Creatinine Urine Total Protein Vancomycin Trough Rheumatoid Factor Complement C4 Miscellaneous Test Crossmatch Chest x-ray: image reviewed Allied health notes reviewed: RT
[2016-11-06] MEDS: APRESOLINE IV PRN (13:17)
[2016-11-06] MEDS: CATAPRES-TTS PATCH TD SCH (18:01)
[2016-11-06] MEDS ORDERED: TPN ADULT 2,016 ML IV SCH (20:00)
[2016-11-06] MEDS: TYLENOL FEEDTUBE PRN (23:38)
[2016-11-07] MEDS: HumuLIN R SUB-Q SCH ×4 (00:20→19:00)
[2016-11-07] MEDS: TYLENOL FEEDTUBE PRN (05:45)
[2016-11-07] MEDS: LOPRESSOR PO SCH ×4 (05:45→23:32)
[2016-11-07 07:07] LABS: Basophils # (Auto) 0.1 K/mm3 (0.0-0.1); Basophils % (Auto) 0.8 % (0.0-1.8); Eosinophils # (Auto) 0.2 K/mm3 (0.0-0.4); Eosinophils % (Auto) 2.1 % (0.0-4.3); Hemoglobin 6.3 gm/dl (10.1-14.3); Lymphocytes # (Auto) 2.3 K/mm3 (1.2-5.4); Lymphocytes % (Auto) 23.6 % (13.4-35.0); Mean Corpuscular HGB Conc 32 % (30-34); Mean Corpuscular Hemoglobin 29 pg (28-32); Mean Corpuscular Volume 91 fl (79-97); Platelet Count 249 K/mm3 (140-440); Red Blood Count 2.18 M/mm3 (3.65-5.03); Red Cell Distribution Width 16.8 % (13.2-15.2)
[2016-11-07 07:23] LABS: Calcium 8.4 mg/dL (8.4-10.2)
[2016-11-07 07:49] LABS: Hematocrit 19.7 % (30.3-42.9)
[2016-11-07] MEDS ORDERED: NACL 0.9% 500 ML 500 ML IV ONE (09:07)
--- NOTE | 2016-11-07 09:09 | Progress Note ---
Subjective Principal diagnosis: Acute resp failure on MVS; S/P Acute CVA; Acute Encephalopathy; JUANITA Interval history: Patient was seen today for follow-up of multiple renal-related issues she still remains on vent Has had fever pending culture Events of 24 hours vitals, labs, intake output. Medications were reviewed Allergies: Reviewed Social history: Reviewed Family history: Reviewed Current medications: Reviewed Physical examination: Vitals: Reviewed HEENT: Oral mucosa moist, mild pallor Neck: Supple, no JVD Chest: Clear to auscultation anteriorly Heart: Revealed regular S1, S2 heard Abdomen: Soft, nontender. No renal bruit. No CVA tenderness. No suprapubic or less Extremity: Edema less than 1+ dry skin Skin: Dry skin. No purpuric rashes Musculoskeletal: No joint effusion noted Assessment and plan are as follows; Acute on chronic renal failure: Patient is dialysis dependent, Anemia and renal failure ; monitor for now and follow blood cell transfusion as needed Fever, currently followed by infectious disease, follow-up on culture Blood pressure appears to be improving Tachycardia appears to be better with the current regimen Hemodialysis and ultrafiltration 3-4 times per week Status post cerebrovascular accident, Discontinue Vas-Cath as patient does not require to accesses We'll continue to follow and make recommendation from renal standpoint Case was also discussed with ID Dr Eli Objective - Vital Signs Vital signs: Vital Signs - 12hr 11/06/16 11/06/16 11/06/16 21:30 22:00 22:30 Temperature Pulse Rate 116 H 114 H 114 H Pulse Rate [ From Monitor] Respiratory 28 H 19 21 Rate Respiratory Rate [Left Hand ] Blood Pressure 154/86 156/82 161/86 O2 Sat by Pulse 98 98 100 Oximetry O2 Sat by Pulse Oximetry [ Assessment] 11/06/16 11/06/16 11/06/16 23:00 23:23 23:31 Temperature 102.7 F H Pulse Rate 111 H 110 H Pulse Rate [ From Monitor] Respiratory 25 H 28 H Rate Respiratory Rate [Left Hand ] Blood Pressure 134/81 119/69 O2 Sat by Pulse 99 100 Oximetry O2 Sat by Pulse Oximetry [ Assessment] 11/06/16 11/07/16 11/07/16 23:38 00:00 00:15 Temperature Pulse Rate 113 H 111 H Pulse Rate [ From Monitor] Respiratory 27 H 23 Rate Respiratory 29 H Rate [Left Hand ] Blood Pressure 123/69 123/69 O2 Sat by Pulse 100 100 Oximetry O2 Sat by Pulse 99 Oximetry [ Assessment] 11/07/16 11/07/16 11/07/16 00:30 00:38 01:00 Temperature Pulse Rate 110 H 105 H Pulse Rate [ From Monitor] Respiratory 27 H 20 24 Rate Respiratory Rate [Left Hand ] Blood Pressure 134/66 118/60 O2 Sat by Pulse 100 99 Oximetry O2 Sat by Pulse Oximetry [ Assessment] 11/07/16 11/07/16 11/07/16 01:30 01:37 02:00 Temperature Pulse Rate 108 H 107 H 98 H Pulse Rate [ From Monitor] Respiratory 25 H 17 Rate Respiratory Rate [Left Hand ] Blood Pressure 126/69 114/60 O2 Sat by Pulse 100 100 Oximetry O2 Sat by Pulse Oximetry [ Assessment] 11/07/16 11/07/16 11/07/16 02:31 03:00 03:30 Temperature Pulse Rate 108 H 108 H 110 H Pulse Rate [ From Monitor] Respiratory 27 H 22 25 H Rate Respiratory Rate [Left Hand ] Blood Pressure 138/75 143/76 148/86 O2 Sat by Pulse 100 99 100 Oximetry O2 Sat by Pulse Oximetry [ Assessment] 11/07/16 11/07/16 11/07/16 03:40 04:00 04:01 Temperature 100.4 F H Pulse Rate 98 H Pulse Rate [ 98 H From Monitor] Respiratory 24 24 Rate Respiratory Rate [Left Hand ] Blood Pressure 117/58 O2 Sat by Pulse 100 100 Oximetry O2 Sat by Pulse Oximetry [ Assessment] 11/07/16 11/07/16 11/07/16 04:30 05:00 05:30 Temperature Pulse Rate 102 H 101 H 110 H Pulse Rate [ From Monitor] Respiratory 28 H 19 23 Rate Respiratory Rate [Left Hand ] Blood Pressure 117/58 128/77 129/84 O2 Sat by Pulse 100 100 100 Oximetry O2 Sat by Pulse Oximetry [ Assessment] 11/07/16 11/07/16 11/07/16 05:45 06:00 06:30 Temperature Pulse Rate 106 H 107 H Pulse Rate [ From Monitor] Respiratory 20 21 Rate Respiratory Rate [Left Hand ] Blood Pressure 129/84 140/80 149/77 O2 Sat by Pulse 92 Oximetry O2 Sat by Pulse Oximetry [ Assessment] 11/07/16 11/07/16 11/07/16 06:45 07:00 07:30 Temperature Pulse Rate 95 H 103 H Pulse Rate [ From Monitor] Respiratory 20 22 38 H Rate Respiratory Rate [Left Hand ] Blood Pressure 144/76 150/82 O2 Sat by Pulse 100 96 Oximetry O2 Sat by Pulse Oximetry [ Assessment] 11/07/16 08:02 Temperature Pulse Rate 100 H Pulse Rate [ From Monitor] Respiratory Rate Respiratory Rate [Left Hand ] Blood Pressure 151/80 O2 Sat by Pulse 95 Oximetry O2 Sat by Pulse 95 Oximetry [ Assessment] - Lab 11/07/16 06:30 11/07/16 06:30 Most recent lab results Calcium 8.4 mg/dL (8.4-10.2) 11/07/16 06:30 Phosphorus 4.40 mg/dL (2.5-4.5) 11/07/16 06:30 Magnesium 2.20 mg/dL (1.7-2.3) 11/07/16 06:30 Urine Creatinine TNR 10/29/16 07:45 Urine Sodium 36 mEq/L 09/16/16 19:19 Urine Total Protein 16 mg/dL (5-11.8) H 09/16/16 19:19
--- NOTE | 2016-11-07 09:11 | Progress Note ---
Assessment and Plan Assessment and plan: 46-year-old woman with a history of hypertension, diabetes, asthma, hyperlipidemia, chronic kidney disease and anxiety , who was brought in by family because, she couldn't get her words out, her face was also twisted, she was admitted for acute CVA and accelerated hypertension, she had a hx of poor adherence with her medications, and uncontrolled htn. Patient's blood pressure systolically on admission was noted be greater than 260. TPA was started but this was discontinued after 5 minutes because her blood pressure became uncontrolled. The TPA was not initiated again because the patient was outside the TPA window. Fever Reconsult infectious disease, has recently completed antibiotics Spoke with Dr. Eli of infectious disease. She recommended obtaining a stat chest x-ray, UA, urine culture, blood cultures, these have been negative so far , CRP, pro calcitonin and holding antibiotics at this time. , fup blood cultures, patient does have a PICC line and a vasc cath, this may be possible etiology of infection, will need them removed -still having high fevers, will start levaquin and vancomycin -Severe Sepsis with septic shock, recurrent. Patient with multiple episodes of sepsis. Initial episode due to presumed aspiration pneumonia and septic episode on 09/23 from candidemia then a third episode from peritonitis from gastric perforation from dislodged PEG , there was an abscess in the abdomen present at that time that was draining pus. +/-UTI. The latest episode was related to surgical site infection. Fevers have now resolved. Continue antibiotics per ID. Surgical wound infection/gram-negative sepsis/candidemia/peritonitis PEG has been removed Has already completed 14 days of abx and antifungals, ID input appreciated She will need to be on tube feeds through NG tube for a month, and then either a gastrostomy or jejunostomy tube replaced after her GI wounds have healed and infection is cleared -continue wound care to ostomy sites JUANITA Likely due to vasomotor nephropathy and ATN given sepsis Nephrology input appreciated, continue hemodialysis Acute CVA with infarct. sp TPA Continue neuro checks. Neurology input appreciated, CT shows continued evolution of left MCA infarct with slight mass effect and edema, and there is no hemorrhage - PRINCE showed hyperdynamic with ef of 75%, neither clot nor septal defect seen - MRA Brain shows near complete occlusion of M2 and M3 of the left MCA - Repeat CT scan done on 09/11, shows stable findings - carotid doppler negative - Echo shows preserved systolic function but does show some left ventricular diastolic dysfunction - continue asa and statin for secondary ppx Persistent vegetative state This patient's needs placement at either hospice or SNF -She was denied for LTACH Acute hypoxic respiratory failure requiring MV >96hrs Status post tracheostomy, continue mechanical ventilation Nosocomial acquired aspiration pneumonia/sepsis/UTI Completed a course of antibiotics Asthma/COPD exacerbation Patient is on antibiotics, steroids and nebs, continue MV, intubated Acute Toxic Metabolic encephalopathy. Likely multifactorial, mostly secondary to evolution of CVA for restlessness, we checked troponin, EKG, CXR which were all negative Hypertensive Emergency Continue current medications Paroxysmal atrial fibrillation with rapid ventricular rate, failed cardioversion Continue current medications, Not a candidate for anticoagulation secondary to anemia thrombocytopenia and massive CVA Hypokalemia/Hypomagnesemia/hypophosphatemia. Replete electrolytes as needed. Diabetes type 2. Continue sliding-scale regular insulin and Accu-Cheks. Hyperlipidemia. Continue statin Nutrition continue tube feeds Anemia requiring multiple transfusions/acute blood loss Has received 11 units of PRBC, , continue to transfuse to keep Hg above 7 Case discussed with the patient's family and pulmonology her POA is her Brother, Jam [phone] Dispo. Very poor prognosis. Plan for SNIF placement, she was ready denied by LTAC The high probability of a clinically significant, sudden or life threatening deterioration of the [cardiovascular and neurological] system(s) required my full and direct attention, intervention and personal management. The aggregate critical care time was [33] minutes. This time is in addition to time spent performing reported procedures but includes the following: [] Data Review and interpretation [] Patient assessment and monitoring of vital signs [] Documentation [] Medication orders and management History Interval history: She opens her eyes, but does not obey commands. Has tracheostomy in place Fever curve has been coming down Hospitalist Physical - Physical exam Narrative exam: General: Opens eyes, no distress HEENT: MMM, EOMI cardiac: S1-S2 heard lungs: ventilated breath sounds abdomen: soft, nontender, nondistended bowel sounds positive multiple ostomy bags noted, drainage is reduced extremities: no edema clubbing or cyanosis Skin: no rash or lesion Neuro: Status post tracheostomy, opens eyes, does not obey commands, right- sided weakness - Constitutional Vitals: Temp Pulse Resp BP Pulse Ox 100.4 F H 100 H 38 H 151/80 95 11/07/16 03:40 11/07/16 08:02 11/07/16 07:30 11/07/16 08:02 11/07/16 08:02 General appearance: Present: no acute distress, obese, other (on vent, non- responsive) Results - Labs CBC & Chem 7: 11/08/16 13:03 11/07/16 06:30 Labs: Laboratory Last Values WBC 9.6 K/mm3 (4.5-11.0) 11/07/16 06:30 RBC 2.18 M/mm3 (3.65-5.03) L 11/07/16 06:30 Hgb 6.3 gm/dl (10.1-14.3) L 11/07/16 06:30 Hct 19.7 % (30.3-42.9) L* 11/07/16 06:30 MCV 91 fl (79-97) 11/07/16 06:30 MCH 29 pg (28-32) 11/07/16 06:30 MCHC 32 % (30-34) 11/07/16 06:30 RDW 16.8 % (13.2-15.2) H 11/07/16 06:30 Plt Count 249 K/mm3 (140-440) 11/07/16 06:30 Lymph % (Auto) 23.6 % (13.4-35.0) 11/07/16 06:30 [place] % (Auto) 10.0 % (0.0-7.3) H 11/07/16 06:30 Eos % (Auto) 2.1 % (0.0-4.3) 11/07/16 06:30 Baso % (Auto) 0.8 % (0.0-1.8) 11/07/16 06:30 Lymph # 2.3 K/mm3 (1.2-5.4) 11/07/16 06:30 [place] # 1.0 K/mm3 (0.0-0.8) H 11/07/16 06:30 Eos # 0.2 K/mm3 (0.0-0.4) 11/07/16 06:30 Baso # 0.1 K/mm3 (0.0-0.1) 11/07/16 06:30 Add Manual Diff Complete 10/27/16 06:30 Total Counted 100 10/27/16 06:30 Seg Neutrophils % 63.5 % (40.0-70.0) 11/07/16 06:30 Seg Neuts % (Manual) 78.0 % (40.0-70.0) H 10/27/16 06:30 Band Neutrophils % 0 % 10/27/16 06:30 Lymphocytes % (Manual) 14.0 % (13.4-35.0) 10/27/16 06:30 Reactive Lymphs % (Man) 0 % 10/27/16 06:30 Monocytes % (Manual) 7.0 % (0.0-7.3) 10/27/16 06:30 Eosinophils % (Manual) 0 % (0.0-4.3) 10/27/16 06:30 Basophils % (Manual) 1.0 % (0.0-1.8) 10/27/16 06:30 Metamyelocytes % 0 % 10/27/16 06:30 Myelocytes % 0 % 10/27/16 06:30 Promyelocytes % 0 % 10/27/16 06:30 Blast Cells % 0 % 10/27/16 06:30 Nucleated RBC % 2.0 % (0.0-0.9) H 10/27/16 06:30 Seg Neutrophils # 6.1 K/mm3 (1.8-7.7) 11/07/16 06:30 Seg Neutrophils # Man 10.8 K/mm3 (1.8-7.7) H 10/27/16 06:30 Band Neutrophils # 0.0 K/mm3 10/27/16 06:30 Lymphocytes # (Manual) 1.9 K/mm3 (1.2-5.4) 10/27/16 06:30 Abs React Lymphs (Man) 0.0 K/mm3 10/27/16 06:30 Monocytes # (Manual) 1.0 K/mm3 (0.0-0.8) H 10/27/16 06:30 Eosinophils # (Manual) 0.0 K/mm3 (0.0-0.4) 10/27/16 06:30 Basophils # (Manual) 0.1 K/mm3 (0.0-0.1) 10/27/16 06:30 Metamyelocytes # 0.0 K/mm3 10/27/16 06:30 Myelocytes # 0.0 K/mm3 10/27/16 06:30 Promyelocytes # 0.0 K/mm3 10/27/16 06:30 Blast Cells # 0.0 K/mm3 10/27/16 06:30 Pathologist Review 09/13/16 04:00 WBC Morphology Not Reportable 10/27/16 06:30 Hypersegmented Neuts Not Reportable 10/27/16 06:30 Hyposegmented Neuts Not Reportable 10/27/16 06:30 Hypogranular Neuts Not Reportable 10/27/16 06:30 Smudge Cells Not Reportable 10/27/16 06:30 Toxic Granulation Not Reportable 10/27/16 06:30 Toxic Vacuolation Not Reportable 10/27/16 06:30 Dohle Bodies Not Reportable 10/27/16 06:30 Pelger-Huet Anomaly Not Reportable 10/27/16 06:30 Jasmina Rods Not Reportable 10/27/16 06:30 Platelet Estimate Cons 10/27/16 06:30 Clumped Platelets Not Reportable 10/27/16 06:30 Plt Clumps, EDTA Not Reportable 10/27/16 06:30 Large Platelets Few 10/27/16 06:30 Giant Platelets Not Reportable 10/27/16 06:30 Platelet Satelliting Not Reportable 10/27/16 06:30 Plt Morphology Comment Not Reportable 10/27/16 06:30 RBC Morphology Not Reportable 10/27/16 06:30 Dimorphic RBCs Not Reportable 10/27/16 06:30 Polychromasia Not Reportable 10/27/16 06:30 Hypochromasia Not Reportable 10/27/16 06:30 Poikilocytosis Not Reportable 10/27/16 06:30 Anisocytosis 1+ 10/27/16 06:30 Microcytosis Not Reportable 10/27/16 06:30 Macrocytosis Not Reportable 10/27/16 06:30 Spherocytes Not Reportable 10/27/16 06:30 Pappenheimer Bodies Not Reportable 10/27/16 06:30 Sickle Cells Not Reportable 10/27/16 06:30 Target Cells Not Reportable 10/27/16 06:30 Tear Drop Cells Not Reportable 10/27/16 06:30 Ovalocytes Not Reportable 10/27/16 06:30 Stomatocytes Few 10/06/16 03:50 Helmet Cells Not Reportable 10/27/16 06:30 [place] Bodies Not Reportable 10/27/16 06:30 [place] Rings Not Reportable 10/27/16 06:30 [place] Cells Not Reportable 10/27/16 06:30 Bite Cells Not Reportable 10/27/16 06:30 Crenated Cell Not Reportable 10/27/16 06:30 Elliptocytes Not Reportable 10/27/16 06:30 Acanthocytes (Spur) Not Reportable 10/27/16 06:30 Rouleaux Not Reportable 10/27/16 06:30 Hemoglobin C Crystals Not Reportable 10/27/16 06:30 Schistocytes Not Reportable 10/27/16 06:30 Malaria parasites Not Reportable 10/27/16 06:30 ESR > 140.0 mm/Hr (0-20) 09/08/16 11:48 Jun Bodies Not Reportable 10/27/16 06:30 Hem Pathologist Commnt No 10/27/16 06:30 PT 19.0 Sec. (12.2-14.9) H 10/09/16 03:45 INR 1.51 (0.87-1.13) H 10/09/16 03:45 APTT 33.0 Sec. (24.2-36.6) 10/09/16 03:45 Thrombin Time 16.8 Sec. (15.1-19.6) 09/03/16 00:10 Fibrinogen 750 mg/dl (211-480) H 09/08/16 11:48 Lupus Anticoagulant see below 09/12/16 09:59 LA PTT Baseline See scanned report 09/12/16 09:59 dRVVT Confirm Interp Positive (Negative) H 09/12/16 09:59 dRVVT Screen 50:50 See scanned report 09/12/16 09:59 dRVVT Mix Interpret See scanned report 09/12/16 09:59 Protein C Antigen 122 % (70-140) 09/08/16 15:35 Free Protein S 97 % normal (50-147) 09/08/16 15:35 Total Protein S 109 % (70-140) 09/08/16 15:35 Antithrombin III Ag 100 % (80-120) 09/08/16 15:35 Heparin Anti-Xa, Unfract Negative (Negative) 09/29/16 13:35 Factor V Activity 182 % (65-150) H 09/08/16 15:35 POC ABG pH 7.561 (7.35-7.45) H 10/16/16 20:48 POC ABG pCO2 24.4 (35-45) L 10/16/16 20:48 POC ABG pO2 77 (80-105) L 10/16/16 20:48 POC ABG HCO3 21.9 10/16/16 20:48 POC ABG Total CO2 23 10/16/16 20:48 POC ABG O2 Sat 97 10/16/16 20:48 POC ABG Base Excess 0 10/16/16 20:48 FiO2 25 % 10/16/16 20:48 Sodium 135 mmol/L (137-145) L 11/07/16 06:30 Potassium 5.0 mmol/L (3.6-5.0) 11/07/16 06:30 Chloride 95.6 mmol/L (98-107) L 11/07/16 06:30 Carbon Dioxide 25 mmol/L (22-30) 11/07/16 06:30 Anion Gap 19 mmol/L 11/07/16 06:30 BUN 70 mg/dL (7-17) H 11/07/16 06:30 Creatinine 2.0 mg/dL (0.7-1.2) H 11/07/16 06:30 Estimated GFR 33 ml/min 11/07/16 06:30 BUN/Creatinine Ratio 35.00 % 11/07/16 06:30 Glucose 126 mg/dL (65-100) H 11/07/16 06:30 POC Glucose 101 (70-105) 11/07/16 05:20 Osmolality 351 Mosm/kg 09/16/16 11:47 Lactic Acid 4.50 mmol/L (0.7-2.0) H* 09/28/16 07:25 Calcium 8.4 mg/dL (8.4-10.2) 11/07/16 06:30 Phosphorus 4.40 mg/dL (2.5-4.5) 11/07/16 06:30 Magnesium 2.20 mg/dL (1.7-2.3) 11/07/16 06:30 Total Bilirubin 0.20 mg/dL (0.1-1.2) 11/06/16 06:25 Direct Bilirubin 0.3 mg/dL (0-0.2) H 10/10/16 05:00 Indirect Bilirubin 0.1 mg/dL 10/10/16 05:00 AST 103 units/L (5-40) H 11/06/16 06:25 ALT 77 units/L (7-56) H 11/06/16 06:25 Alkaline Phosphatase 285 units/L (35-129) H 11/06/16 06:25 Ammonia 27.0 umol/L (25-60) 09/07/16 08:37 Total Creatine Kinase 121 units/L (30-135) 09/29/16 20:12 CK-MB (CK-2) < 1.0 ng/mL (0.0-4.0) 09/29/16 20:12 CK-MB (CK-2) Rel Index 0.8 (0-4) 09/29/16 20:12 Troponin T 0.204 ng/mL (0.00-0.029) H* 09/29/16 20:12 C-Reactive Protein 11.40 mg/dL (0.00-1.30) H 11/05/16 13:25 Total Protein 6.2 g/dL (6.3-8.2) L 11/06/16 06:25 Albumin 1.8 g/dL (3.9-5) L 11/06/16 06:25 Albumin/Globulin Ratio 0.4 % 11/06/16 06:25 Prealbumin 0.180 g/L (0.200-0.400) L 11/06/16 06:25 Triglycerides 137 mg/dL (2-149) 09/29/16 20:12 Cholesterol 31 mg/dL (50-199) L 09/29/16 20:12 LDL Cholesterol Direct 4 mg/dL (50-130) L 09/29/16 20:12 HDL Cholesterol 3 mg/dL (40-59) L 09/29/16 20:12 Cholesterol/HDL Ratio 10.33 % 09/29/16 20:12 Angiotensin Convert Enz See scanned report 09/08/16 11:48 Renin 0.99 ng/mL/h (0.25-5.82) 10/07/16 10:56 Aldosterone <1 ng/dL () 10/07/16 10:56 Aldosterone/Renin Dir see below 10/07/16 10:56 Serotonin Release Assay See scanned report 09/29/16 13:35 TSH 1.010 mlU/mL (0.270-4.200) 09/07/16 08:37 HCG, Qual Negative (Negative) 09/03/16 00:10 Urine Color Yellow (Yellow) 11/05/16 13:09 Urine Turbidity Clear (Clear) 11/05/16 13:09 Urine pH 9.0 (5.0-7.0) H 11/05/16 13:09 Ur Specific [place] 1.011 (1.003-1.030) 11/05/16 13:09 Urine Protein 100 mg/dl mg/dL (Negative) 11/05/16 13:09 Urine Glucose (UA) Neg mg/dL (Negative) 11/05/16 13:09 Urine Ketones Neg mg/dL (Negative) 11/05/16 13:09 Urine Blood Neg (Negative) 11/05/16 13:09 Urine Nitrite Neg (Negative) 11/05/16 13:09 Urine Bilirubin Neg (Negative) 11/05/16 13:09 Urine Urobilinogen < 2.0 mg/dL (<2.0) 11/05/16 13:09 Ur Leukocyte Esterase Neg (Negative) 11/05/16 13:09 Urine WBC (Auto) 4.0 /HPF (0.0-6.0) 11/05/16 13:09 Urine RBC (Auto) 1.0 /HPF (0.0-6.0) 11/05/16 13:09 U Epithel Cells (Auto) 1.0 /HPF (0-13.0) 10/07/16 18:30 Urine Bacteria (Auto) 4+ /HPF (Negative) 11/05/16 13:09 Urine WBC Clumps 2+ /HPF 09/07/16 02:47 Hyaline Casts 4 /LPF 09/07/16 02:47 Urine Mucus Few /HPF 10/07/16 18:30 Urine Yeast (Budding) 3+ /HPF 10/07/16 18:30 Urine Eosinophils None seen (None Seen) 09/07/16 16:00 Urine Total Volume TNR 10/29/16 07:45 Urine Creatinine TNR 10/29/16 07:45 Height (in) TNR 10/29/16 07:45 Weight (lb) TNR 10/29/16 07:45 Creatinine Clearance TNR 10/29/16 07:45 Urine Sodium 36 mEq/L 09/16/16 19:19 Urine Total Protein 16 mg/dL (5-11.8) H 09/16/16 19:19 Vancomycin Trough 2.3 ug/mL (5.0-20.0) L 09/21/16 13:00 Random Vancomycin 17.0 ug/mL (0-40.0) 10/20/16 06:00 Urine Opiates Screen Presumptive negative 09/03/16 15:11 Urine Methadone Screen Presumptive positive 09/03/16 15:11 Ur Barbiturates Screen Presumptive positive 09/03/16 15:11 Ur Phencyclidine Scrn Presumptive negative 09/03/16 15:11 Ur Amphetamines Screen Presumptive negative 09/03/16 15:11 U Benzodiazepines Scrn Presumptive negative 09/03/16 15:11 Urine Cocaine Screen Presumptive negative 09/03/16 15:11 U Marijuana (THC) Screen Presumptive positive 09/03/16 15:11 Drugs of Abuse Note Disclamer 09/03/16 15:11 Rheumatoid Factor 24 IU/ml (0-13) H 09/08/16 11:48 SAHIL Screen Negative (Negative) 09/07/16 09:20 Proteinase 3 (PR3) Ab <1.0 AI (<1.0) 09/07/16 09:20 Myeloperoxidase Ab <1.0 AI (<1.0) 09/07/16 09:20 Sjogren's Antibody <1.0 AI (<1.0) 09/08/16 15:35 Scl-70 Scleroderma Ab <1.0 AI (<1.0) 09/08/16 15:35 Centromere B Antibody <1.0 AI (<1.0) 09/08/16 12:02 Heparin-induced Plt Ab Negative (Negative) 09/29/16 13:35 UF Heparin High Dose 11 % Release 09/29/16 13:35 SUDHIR UFH Low Dose 0.1 6 % Release 09/29/16 13:35 SUDHIR UFH Low Dose 0.5 8 % Release 09/29/16 13:35 Cardiolipid IgG Ab <14 GPL (<=14) 09/12/16 09:59 Cardiolipid IgA Ab <11 APL (<=11) 09/12/16 09:59 Cardiolipid IgM Ab <12 MPL (<=12) 09/12/16 09:59 Complement C3 148 mg/dL (90-180) 09/07/16 09:20 Complement C4 58 mg/dL (16-47) H 09/07/16 09:20 RPR Nonreactive (Nonreactive) 09/08/16 11:48 Hepatitis A IgM Ab Non-reactive (NonReactive) 09/24/16 14:40 Hep Bs Antigen Non-reactive (Negative) 09/24/16 14:40 Hep B Core IgM Ab Non-reactive (NonReactive) 09/24/16 14:40 Hepatitis C Antibody Non-reactive (NonReactive) 09/24/16 14:40 HIV 1&2 Antibody Rapid Non react (Non React) 09/08/16 11:48 HIV P24 Antigen Non react (Non React) 09/08/16 11:48 Miscellaneous Test Flexitest 1 H 10/20/16 16:00 Blood Type A POSITIVE 10/24/16 Unknown Antibody Screen Negative 10/24/16 Unknown DELORIS Antibody Screen Negative 09/25/16 10:30 Crossmatch See Detail 10/24/16 Unknown
--- NOTE | 2016-11-07 09:32 | Progress Note ---
Assessment and Plan Assessment: 1) Recurrent Sepsis: new episode ? unclear source ? line infection -S/p multiple episodes of sepsis - initially due to presumed aspiration pneumonia, then septic episode on 09/23 from Candidemia. Then from - peritonitis from gastric perforation +/- UTI. Latest episode was due to abdominal wall abscess at surgical site. -CRP 19 --> 22 -->11 -Procalcitonin=24 --> 16 --> 4.3 2) History of Peritonitis: from gastric perforation from dislodged PEG with significant ascites -S/P exlap, repair of gastric perforation with wedge gastrectomy, abdominal washout, drain placement on 10/05. 3) history of Candidemia: -Blood cultures positive for Silvia albicans on 09/23 -Blood cultures positive on 09/25 -Blood cultures negative on 09/30 -PICC line changed on 10/03 -Source ? gastric perf (PEG placed on 09/20) +/- TPN +/- central lines -TTE 10/07 no vegetations -PICC exchanged on 10/03 -fully treated with micafungin for 14 days last day 10/13 4) History CA-UTI s/p gutierrez exchanged 5) Diarrhea - ? etiology ? antibiotic-induced, not better 6) Initial presumed aspiration pneumonia 7) Presumed UTI: urine cx 09/23 multiple species 8) Respiratory failure s/p trach 9) Recent CVA-left MCA CVA 10) Uncontrolled HTN 11) Acute on CKD 12) Extensive back skin peeling ? burn from gastric secretions. Doubt allergic reaction - resolved 13) Severe anemia; ? from GI bleed 14) Recent abdominal wall abscess at surgical site-treated Plan: -f/u blood, urine and sputum cx -continue levaquin -add vancomycin - renally dosed -please remove right IJ vascath and removed PICC -rec-check procalcitonine -discussed with renal Thank you Dr Pierre for your consultation, will follow up with you. Pauline Carias MD Infectious Diseases Specialist [facility] [phone] O [phone] Subjective Date of service: 11/07/16 Principal diagnosis: Acute resp failure on MVS; S/P Acute CVA; Acute Encephalopathy; JUANITA Interval history: Interval history: Patient remains on the ventilator, noted fever spikes starting on 11/03, last 24 Tmax 102.7. She is on t-feeds. No pressors. Microbiology: Blood cultures: 09/13 neg 8/ Silvia albicans 09/25 Silvia 09/29 neg 10/07 neg 11/05 neg 11/07 pending Urine cultures: 09/10 neg 09/13 neg 8/4 10-100K mixed species 10/07 neg 11/05 pending Respiratory cultures: 09/07 neg 09/13 neg 8/ neg Wound cultures: 10/17 abd wall wound purulence + Pseudomonas MDR Stool cultures: Current Antimicrobials: fluconazole 10/19 cefepime 10/29 Previous Antimicrobials: Zosyn 10/07 Vancomycin PO 10/01 Metronidazole 09/25 Micafungin 09/27-10/13 Meropenem 10/10 Vanco 10/17 zosyn 10/21 Objective - Exam Narrative Exam: General appearance: alert, non verbal, on the vent via trach no following commands Eyes: anicteric sclera, moist conjunctivae; PERRLA HENT: Atraumatic; oropharynx limited; Normal external ears. +NGT with greenish secretion Neck: +trach in place; supple, no thyromegaly or lymphadenopathy Lungs: CTA CV: tachycardic Abdomen: Soft, non-tender, +drain with purulent drainage, + diarrhea via rectal tube leaking. +old PEG site no drainage. Right sided Surgical site x 2 with ostomy bag draining minimal Extremities: +peripheral edema no extremity lymphadenopathy Skin: sacral area wounds superficial no purulence Psych: somnolent . Neuro: alert non verbal on the vent. Lines: left arm PICC placed on 10/03 - Constitutional Vitals: Vital Signs Temp Pulse Resp BP Pulse Ox 100.4 F H 100 H 38 H 151/80 95 11/07/16 03:40 11/07/16 08:02 11/07/16 07:30 11/07/16 08:02 11/07/16 08:02 Temperature -Last 24 Hours Temperature 100.4 F Temperature 102.7 F Temperature 97.5 F Temperature 100 F Temperature 99.2 F - Labs CBC & Chem 7: 11/07/16 06:30 11/07/16 06:30 Labs: Abnormal lab results 11/06/16 11/06/16 11/06/16 Range/Units 11:56 17:14 23:52 RBC (3.65-5.03) M/mm3 Hgb (10.1-14.3) gm/dl Hct (30.3-42.9) % RDW (13.2-15.2) % Gilliam % (Auto) (0.0-7.3) % Gilliam # (0.0-0.8) K/mm3 Sodium (137-145) mmol/L Chloride (98-107) mmol/L BUN (7-17) mg/dL Creatinine (0.7-1.2) mg/dL Glucose (65-100) mg/dL POC Glucose 141 H 125 H 130 H (70-105) 11/07/16 11/07/16 Range/Units 06:30 06:30 RBC 2.18 L (3.65-5.03) M/mm3 Hgb 6.3 L (10.1-14.3) gm/dl Hct 19.7 L* (30.3-42.9) % RDW 16.8 H (13.2-15.2) % Gilliam % (Auto) 10.0 H (0.0-7.3) % Gilliam # 1.0 H (0.0-0.8) K/mm3 Sodium 135 L (137-145) mmol/L Chloride 95.6 L (98-107) mmol/L BUN 70 H (7-17) mg/dL Creatinine 2.0 H (0.7-1.2) mg/dL Glucose 126 H (65-100) mg/dL POC Glucose (70-105)
[2016-11-07] MEDS: PROTONIX FEEDTUBE SCH (10:38)
[2016-11-07] MEDS: COZAAR PO SCH (10:38)
--- NOTE | 2016-11-07 10:41 | Progress Note ---
Assessment and Plan (1) Acute respiratory failure with hypoxia Current Visit: Yes Status: Acute Plan to address problem: - continue aspiration precautions - continue to wean oxygen for MAP > 94% - continue bronchodilators and pulmonary toilet - s/p tracheostomy - resumed scopolamine - will get ABG at 9pm tonight and continue RTC t-piece as tolerated if acceptable (2) Acute CVA (cerebrovascular accident) Current Visit: Yes Status: Acute Plan to address problem: - out of tpA window (initially stopped due to uncontrolled HTN) - Left MCA teritory stroke with some midline shift on last CT - seen by neurology and prognosis for recovery of mental status guarded to poor - optimizing secondary prevention modalities now (BP, lipid anti-platelet therapy) - off systemic steroids now (started earlier for edema) - clinically about the same (3) Hypertensive emergency Current Visit: Yes Status: Acute Plan to address problem: - stopped all antihypertensives while septic prior - BP's running high today - on scheduled IV metoprolol with prn IV hydralazine - clonidine patch was placed (0.1mg patch) but BP's still high - increased patch dosing to 0.2mg - will schedule oral amlodipine - added prn labetalol - remains on clonidine patch + cozaar now (4) Obesity (BMI 35.0-39.9 without comorbidity) Current Visit: Yes Status: Chronic Plan to address problem: - now at goal rate on tube feeding - stop TPN today (11/07/16) (5) Type 2 diabetes mellitus Current Visit: Yes Status: Chronic Qualifiers: Diabetes mellitus complication status: D Diabetes mellitus complication detail: D Diabetic retinopathy severity: D Proliferative retinopathy type: P Diabetes mellitus macular edema: D Diabetes mellitus snf insulin use : D Laterality: L Chronic kidney disease stage: C Plan to address problem: - continue SSI - discontinued lantus prior re: hypoglycemia - target BG's <180 mg/dl (6) Leukocytosis (leucocytosis) Current Visit: Yes Status: Acute Qualifiers: Leukocytosis type: leukemoid reaction Qualified Code(s): D72.823 - Leukemoid reaction Plan to address problem: - completed cancidas and de-escalate per ID recs - leucocytosis persistent but now trending down - on zosyn and diflucan now - wound cultures growing pseudomonas and dann (7) Agitation Current Visit: Yes Status: Acute Plan to address problem: - prn sedation / analgesia - tapered off seroquel for now (8) Atrial fibrillation Current Visit: Yes Status: Acute Qualifiers: Atrial fibrillation type: A Plan to address problem: - failed cardioversion earlier - cardiology evaluation ongoing - back in A-fib - off amiodarone - p.o. metoprolol scheduled at 50mg q6h (9) JUANITA (acute kidney injury) Current Visit: Yes Status: Acute Plan to address problem: - on Dialysis now - continue HD/UF per nephrology recommendations - s/p tunnelled vas-cath - HD/UF (10) Pyrexia of unknown origin Current Visit: Yes Status: Acute Plan to address problem: - dopplers negative for DVT - continue to treat with Anti-infectives (11) Severe sepsis Current Visit: Yes Status: Acute Plan to address problem: - resume vasopressors for MAP < 60mmHg not responsive to volume - all central vascular access has been discontinued after fungemia reported - care plan formulated with ID input - BC's from 09/27/16 growing in 1of 2 but still no ID yet - complete micafungin per ID recs and stop date - wound care nurse also managing back wounds - clinically stable and hemodynamically improved - bo to RLQ incision removed and wound drained and packed - on contact precautions for MDRO PSAR - will pull vascath and keep permacath if OK with nephrology (12) Emesis Current Visit: Yes Status: Acute Qualifiers: Vomiting type: V Vomiting Intractability: V Nausea presence: N Plan to address problem: - s/p surgical repair of gastric perforation - continue TPN for now - follow surgery recommendations re: feeding and new PEG tube - now tolerating tube feeds at goal rate (13) Dysphagia, oropharyngeal Current Visit: Yes Status: Acute Plan to address problem: - discussed with surgeon and she will be best served with continued treatment with anti-infectives as well as time for the GI tract and her wounds to heal before replacing the PEG tube - continue DHT feeding (14) Discharge planning issues Current Visit: Yes Status: Acute Plan to address problem: - she remains critically ill on life sustaining interventions including MVS and at risk for further acute deterioration including - plan is to see if patient can transfer to LTAC in interim and be brought back for PEG placement (currently refused at LTAC) - if can stay off MVS then can transfer to medical floor shortly .....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 Objective Vital Signs - 12hr 11/06/16 11/06/16 11/06/16 23:00 23:23 23:31 Temperature 102.7 F H Pulse Rate 111 H 110 H Pulse Rate [ From Monitor] Respiratory 25 H 28 H Rate Respiratory Rate [Left Hand ] Blood Pressure 134/81 119/69 O2 Sat by Pulse 99 100 Oximetry O2 Sat by Pulse Oximetry [ Assessment] 11/06/16 11/07/16 11/07/16 23:38 00:00 00:15 Temperature Pulse Rate 113 H 111 H Pulse Rate [ From Monitor] Respiratory 27 H 23 Rate Respiratory 29 H Rate [Left Hand ] Blood Pressure 123/69 123/69 O2 Sat by Pulse 100 100 Oximetry O2 Sat by Pulse 99 Oximetry [ Assessment] 11/07/16 11/07/16 11/07/16 00:30 00:38 01:00 Temperature Pulse Rate 110 H 105 H Pulse Rate [ From Monitor] Respiratory 27 H 20 24 Rate Respiratory Rate [Left Hand ] Blood Pressure 134/66 118/60 O2 Sat by Pulse 100 99 Oximetry O2 Sat by Pulse Oximetry [ Assessment] 11/07/16 11/07/16 11/07/16 01:30 01:37 02:00 Temperature Pulse Rate 108 H 107 H 98 H Pulse Rate [ From Monitor] Respiratory 25 H 17 Rate Respiratory Rate [Left Hand ] Blood Pressure 126/69 114/60 O2 Sat by Pulse 100 100 Oximetry O2 Sat by Pulse Oximetry [ Assessment] 11/07/16 11/07/16 11/07/16 02:31 03:00 03:30 Temperature Pulse Rate 108 H 108 H 110 H Pulse Rate [ From Monitor] Respiratory 27 H 22 25 H Rate Respiratory Rate [Left Hand ] Blood Pressure 138/75 143/76 148/86 O2 Sat by Pulse 100 99 100 Oximetry O2 Sat by Pulse Oximetry [ Assessment] 11/07/16 11/07/16 11/07/16 03:40 04:00 04:01 Temperature 100.4 F H Pulse Rate 98 H Pulse Rate [ 98 H From Monitor] Respiratory 24 24 Rate Respiratory Rate [Left Hand ] Blood Pressure 117/58 O2 Sat by Pulse 100 100 Oximetry O2 Sat by Pulse Oximetry [ Assessment] 11/07/16 11/07/16 11/07/16 04:30 05:00 05:30 Temperature Pulse Rate 102 H 101 H 110 H Pulse Rate [ From Monitor] Respiratory 28 H 19 23 Rate Respiratory Rate [Left Hand ] Blood Pressure 117/58 128/77 129/84 O2 Sat by Pulse 100 100 100 Oximetry O2 Sat by Pulse Oximetry [ Assessment] 11/07/16 11/07/16 11/07/16 05:45 06:00 06:30 Temperature Pulse Rate 106 H 107 H Pulse Rate [ From Monitor] Respiratory 20 21 Rate Respiratory Rate [Left Hand ] Blood Pressure 129/84 140/80 149/77 O2 Sat by Pulse 92 Oximetry O2 Sat by Pulse Oximetry [ Assessment] 11/07/16 11/07/16 11/07/16 06:45 07:00 07:30 Temperature Pulse Rate 95 H 103 H Pulse Rate [ From Monitor] Respiratory 20 22 38 H Rate Respiratory Rate [Left Hand ] Blood Pressure 144/76 150/82 O2 Sat by Pulse 100 96 Oximetry O2 Sat by Pulse Oximetry [ Assessment] 11/07/16 11/07/16 08:02 10:38 Temperature Pulse Rate 100 H 108 H Pulse Rate [ From Monitor] Respiratory Rate Respiratory Rate [Left Hand ] Blood Pressure 151/80 160/91 O2 Sat by Pulse 95 Oximetry O2 Sat by Pulse 95 Oximetry [ Assessment] Constitutional: no acute distress, other (eyes open; not tracking movements) Eyes: non-icteric, other (tracheostomy tube in midline of neck) ENT: oropharynx moist Neck: supple, no lymphadenopathy Effort: mildly labored Ascultation: Bilateral: rhonchi (scant) Cardiovascular: regular rate and rhythm Gastrointestinal: hypoactive bowel sounds, soft, non-tender, non-distended, other (RLQ stomas with colostomy bags) Integumentary: other (healing back burn-like injury) Extremities: no cyanosis, no edema, pulses normal, no ischemia or petechiae Neurologic: pupils equal and round, other (sedated) Psychiatric: other (unable to assess) CBC and BMP: 11/07/16 06:30 11/07/16 06:30 ABG, PT/INR, D-dimer: ABG POC ABG pH 7.561 (7.35-7.45) H 10/16/16 20:48 POC ABG pCO2 24.4 (35-45) L 10/16/16 20:48 POC ABG pO2 77 (80-105) L 10/16/16 20:48 POC ABG HCO3 21.9 10/16/16 20:48 POC ABG Total CO2 23 10/16/16 20:48 POC ABG O2 Sat 97 10/16/16 20:48 PT/INR, D-dimer PT 19.0 Sec. (12.2-14.9) H 10/09/16 03:45 INR 1.51 (0.87-1.13) H 10/09/16 03:45 Abnormal lab findings: Abnormal Labs 09/03/16 09/03/16 09/03/16 12:12 15:07 16:20 WBC RBC Hgb Hct MCV MCH MCHC RDW Plt Count Lymph % (Auto) Cedar % (Auto) Lymph # Cedar # Baso # Seg Neutrophils % Seg Neuts % (Manual) Lymphocytes % (Manual) Monocytes % (Manual) Eosinophils % (Manual) Basophils % (Manual) Nucleated RBC % Seg Neutrophils # Seg Neutrophils # Man Lymphocytes # (Manual) Monocytes # (Manual) Eosinophils # (Manual) PT INR Fibrinogen dRVVT Confirm Interp Factor V Activity POC ABG pH 7.452 H POC ABG pCO2 POC ABG pO2 Sodium Potassium Chloride Carbon Dioxide BUN Creatinine Glucose POC Glucose 178 H Lactic Acid Calcium Phosphorus 2.20 L Magnesium 1.60 L Direct Bilirubin AST ALT Alkaline Phosphatase Troponin T C-Reactive Protein Total Protein Albumin Prealbumin Triglycerides Cholesterol LDL Cholesterol Direct HDL Cholesterol Urine pH Urine WBC (Auto) Urine Creatinine Urine Total Protein Vancomycin Trough Rheumatoid Factor Complement C4 Miscellaneous Test Crossmatch 09/03/16 09/03/16 09/03/16 17:57 17:58 23:50 WBC RBC Hgb Hct MCV MCH MCHC RDW Plt Count Lymph % (Auto) Cedar % (Auto) Lymph # C[place] # Baso # Seg Neutrophils % Seg Neuts % (Manual) Lymphocytes % (Manual) Monocytes % (Manual) Eosinophils % (Manual) Basophils % (Manual) Nucleated RBC % Seg Neutrophils # Seg Neutrophils # Man Lymphocytes # (Manual) Monocytes # (Manual) Eosinophils # (Manual) PT INR Fibrinogen dRVVT Confirm Interp Factor V Activity POC ABG pH POC ABG pCO2 POC ABG pO2 Sodium Potassium Chloride Carbon Dioxide BUN Creatinine Glucose POC Glucose 162 H 145 H Lactic Acid Calcium Phosphorus 2.30 L Magnesium Direct Bilirubin AST ALT Alkaline Phosphatase Troponin T C-Reactive Protein Total Protein Albumin Prealbumin Triglycerides Cholesterol LDL Cholesterol Direct HDL Cholesterol Urine pH Urine WBC (Auto) Urine Creatinine Urine Total Protein Vancomycin Trough Rheumatoid Factor Complement C4 Miscellaneous Test Crossmatch 09/04/16 09/04/16 09/04/16 03:31 03:31 05:42 WBC RBC Hgb 9.7 L D Hct MCV 72 L MCH 23 L MCHC RDW 17.5 H Plt Count Lymph % (Auto) 11.1 L Cedar % (Auto) Lymph # [place] # Baso # Seg Neutrophils % 84.3 H Seg Neuts % (Manual) Lymphocytes % (Manual) Monocytes % (Manual) Eosinophils % (Manual) Basophils % (Manual) Nucleated RBC % Seg Neutrophils # 8.9 H Seg Neutrophils # Man Lymphocytes # (Manual) Monocytes # (Manual) Eosinophils # (Manual) PT INR Fibrinogen dRVVT Confirm Interp Factor V Activity POC ABG pH POC ABG pCO2 POC ABG pO2 Sodium 135 L Potassium 2.9 L* Chloride 97.2 L Carbon Dioxide 19 L BUN Creatinine 1.7 H Glucose 170 H POC Glucose 152 H Lactic Acid Calcium Phosphorus Magnesium Direct Bilirubin AST ALT Alkaline Phosphatase Troponin T C-Reactive Protein Total Protein Albumin Prealbumin Triglycerides 160 H Cholesterol LDL Cholesterol Direct HDL Cholesterol 31 L Urine pH Urine WBC (Auto) Urine Creatinine Urine Total Protein Vancomycin Trough Rheumatoid Factor Complement C4 Miscellaneous Test Crossmatch 09/04/16 09/04/16 09/04/16 11:34 17:46 23:29 WBC RBC Hgb Hct MCV MCH MCHC RDW Plt Count Lymph % (Auto) Cedar % (Auto) Lymph # C[place] # Baso # Seg Neutrophils % Seg Neuts % (Manual) Lymphocytes % (Manual) Monocytes % (Manual) Eosinophils % (Manual) Basophils % (Manual) Nucleated RBC % Seg Neutrophils # Seg Neutrophils # Man Lymphocytes # (Manual) Monocytes # (Manual) Eosinophils # (Manual) PT INR Fibrinogen dRVVT Confirm Interp Factor V Activity POC ABG pH POC ABG pCO2 POC ABG pO2 Sodium Potassium Chloride Carbon Dioxide BUN Creatinine Glucose POC Glucose 165 H 210 H 139 H Lactic Acid Calcium Phosphorus Magnesium Direct Bilirubin AST ALT Alkaline Phosphatase Troponin T C-Reactive Protein Total Protein Albumin Prealbumin Triglycerides Cholesterol LDL Cholesterol Direct HDL Cholesterol Urine pH Urine WBC (Auto) Urine Creatinine Urine Total Protein Vancomycin Trough Rheumatoid Factor Complement C4 Miscellaneous Test Crossmatch 09/05/16 09/05/16 09/05/16 04:05 04:05 05:38 WBC RBC Hgb Hct MCV 76 L D MCH 23 L MCHC RDW 17.8 H Plt Count Lymph % (Auto) C[place] % (Auto) Lymph # [place] # Baso # Seg Neutrophils % Seg Neuts % (Manual) Lymphocytes % (Manual) Monocytes % (Manual) Eosinophils % (Manual) Basophils % (Manual) Nucleated RBC % Seg Neutrophils # Seg Neutrophils # Man Lymphocytes # (Manual) Monocytes # (Manual) Eosinophils # (Manual) PT INR Fibrinogen dRVVT Confirm Interp Factor V Activity POC ABG pH POC ABG pCO2 POC ABG pO2 Sodium 134 L Potassium Chloride Carbon Dioxide 18 L BUN Creatinine 1.8 H Glucose 192 H POC Glucose 175 H Lactic Acid Calcium Phosphorus Magnesium Direct Bilirubin AST ALT Alkaline Phosphatase Troponin T C-Reactive Protein Total Protein Albumin Prealbumin Triglycerides Cholesterol LDL Cholesterol Direct HDL Cholesterol Urine pH Urine WBC (Auto) Urine Creatinine Urine Total Protein Vancomycin Trough Rheumatoid Factor Complement C4 Miscellaneous Test Crossmatch 09/05/16 09/05/16 09/05/16 11:38 17:48 23:22 WBC RBC Hgb Hct MCV MCH MCHC RDW Plt Count Lymph % (Auto) Cedar % (Auto) Lymph # C[place] # Baso # Seg Neutrophils % Seg Neuts % (Manual) Lymphocytes % (Manual) Monocytes % (Manual) Eosinophils % (Manual) Basophils % (Manual) Nucleated RBC % Seg Neutrophils # Seg Neutrophils # Man Lymphocytes # (Manual) Monocytes # (Manual) Eosinophils # (Manual) PT INR Fibrinogen dRVVT Confirm Interp Factor V Activity POC ABG pH POC ABG pCO2 POC ABG pO2 Sodium Potassium Chloride Carbon Dioxide BUN Creatinine Glucose POC Glucose 164 H 186 H 195 H Lactic Acid Calcium Phosphorus Magnesium Direct Bilirubin AST ALT Alkaline Phosphatase Troponin T C-Reactive Protein Total Protein Albumin Prealbumin Triglycerides Cholesterol LDL Cholesterol Direct HDL Cholesterol Urine pH Urine WBC (Auto) Urine Creatinine Urine Total Protein Vancomycin Trough Rheumatoid Factor Complement C4 Miscellaneous Test Crossmatch 09/06/16 09/06/16 09/06/16 04:12 05:59 07:32 WBC RBC Hgb Hct MCV MCH MCHC RDW Plt Count Lymph % (Auto) Cedar % (Auto) Lymph # [place] # Baso # Seg Neutrophils % Seg Neuts % (Manual) Lymphocytes % (Manual) Monocytes % (Manual) Eosinophils % (Manual) Basophils % (Manual) Nucleated RBC % Seg Neutrophils # Seg Neutrophils # Man Lymphocytes # (Manual) Monocytes # (Manual) Eosinophils # (Manual) PT INR Fibrinogen dRVVT Confirm Interp Factor V Activity POC ABG pH 7.514 H POC ABG pCO2 29.1 L POC ABG pO2 72 L Sodium 133 L Potassium 3.4 L Chloride 94.9 L Carbon Dioxide 19 L BUN 30 H Creatinine 2.1 H Glucose 139 H POC Glucose 146 H Lactic Acid Calcium Phosphorus Magnesium Direct Bilirubin AST ALT Alkaline Phosphatase Troponin T C-Reactive Protein Total Protein Albumin Prealbumin Triglycerides Cholesterol LDL Cholesterol Direct HDL Cholesterol Urine pH Urine WBC (Auto) Urine Creatinine Urine Total Protein Vancomycin Trough Rheumatoid Factor Complement C4 Miscellaneous Test Crossmatch 09/06/16 09/06/16 09/06/16 11:57 17:58 19:02 WBC RBC Hgb Hct MCV MCH MCHC RDW Plt Count Lymph % (Auto) C[place] % (Auto) Lymph # [place] # Baso # Seg Neutrophils % Seg Neuts % (Manual) Lymphocytes % (Manual) Monocytes % (Manual) Eosinophils % (Manual) Basophils % (Manual) Nucleated RBC % Seg Neutrophils # Seg Neutrophils # Man Lymphocytes # (Manual) Monocytes # (Manual) Eosinophils # (Manual) PT INR Fibrinogen dRVVT Confirm Interp Factor V Activity POC ABG pH 7.465 H POC ABG pCO2 32.0 L POC ABG pO2 Sodium Potassium Chloride Carbon Dioxide BUN Creatinine Glucose POC Glucose 165 H 160 H Lactic Acid Calcium Phosphorus Magnesium Direct Bilirubin AST ALT Alkaline Phosphatase Troponin T C-Reactive Protein Total Protein Albumin Prealbumin Triglycerides Cholesterol LDL Cholesterol Direct HDL Cholesterol Urine pH Urine WBC (Auto) Urine Creatinine Urine Total Protein Vancomycin Trough Rheumatoid Factor Complement C4 Miscellaneous Test Crossmatch 09/06/16 09/07/16 09/07/16 23:45 02:47 02:47 WBC RBC Hgb Hct MCV MCH MCHC RDW Plt Count Lymph % (Auto) C[place] % (Auto) Lymph # [place] # Baso # Seg Neutrophils % Seg Neuts % (Manual) Lymphocytes % (Manual) Monocytes % (Manual) Eosinophils % (Manual) Basophils % (Manual) Nucleated RBC % Seg Neutrophils # Seg Neutrophils # Man Lymphocytes # (Manual) Monocytes # (Manual) Eosinophils # (Manual) PT INR Fibrinogen dRVVT Confirm Interp Factor V Activity POC ABG pH POC ABG pCO2 POC ABG pO2 Sodium Potassium Chloride Carbon Dioxide BUN Creatinine Glucose POC Glucose 204 H Lactic Acid Calcium Phosphorus Magnesium Direct Bilirubin AST ALT Alkaline Phosphatase Troponin T C-Reactive Protein Total Protein Albumin Prealbumin Triglycerides Cholesterol LDL Cholesterol Direct HDL Cholesterol Urine pH Urine WBC (Auto) 68.0 H Urine Creatinine 106.1 H Urine Total Protein Vancomycin Trough Rheumatoid Factor Complement C4 Miscellaneous Test Crossmatch 09/07/16 09/07/16 09/07/16 04:50 06:19 06:39 WBC RBC Hgb Hct MCV MCH MCHC RDW Plt Count Lymph % (Auto) C[place] % (Auto) Lymph # [place] # Baso # Seg Neutrophils % Seg Neuts % (Manual) Lymphocytes % (Manual) Monocytes % (Manual) Eosinophils % (Manual) Basophils % (Manual) Nucleated RBC % Seg Neutrophils # Seg Neutrophils # Man Lymphocytes # (Manual) Monocytes # (Manual) Eosinophils # (Manual) PT INR Fibrinogen dRVVT Confirm Interp Factor V Activity POC ABG pH 7.457 H POC ABG pCO2 32.1 L POC ABG pO2 76 L Sodium 132 L Potassium Chloride 94.7 L Carbon Dioxide BUN 53 H Creatinine 2.9 H Glucose 151 H POC Glucose 149 H Lactic Acid Calcium Phosphorus Magnesium Direct Bilirubin AST ALT Alkaline Phosphatase Troponin T C-Reactive Protein Total Protein Albumin Prealbumin Triglycerides Cholesterol LDL Cholesterol Direct HDL Cholesterol Urine pH Urine WBC (Auto) Urine Creatinine Urine Total Protein Vancomycin Trough Rheumatoid Factor Complement C4 Miscellaneous Test Crossmatch 09/07/16 09/07/16 09/07/16 09:20 11:43 11:43 WBC 19.4 H RBC Hgb 8.3 L Hct 26.4 L D MCV 72 L D MCH 22 L MCHC RDW 17.9 H Plt Count Lymph % (Auto) 8.5 L Cedar % (Auto) Lymph # Cedar # 1.0 H Baso # Seg Neutrophils % 85.8 H Seg Neuts % (Manual) Lymphocytes % (Manual) Monocytes % (Manual) Eosinophils % (Manual) Basophils % (Manual) Nucleated RBC % Seg Neutrophils # 16.6 H Seg Neutrophils # Man Lymphocytes # (Manual) Monocytes # (Manual) Eosinophils # (Manual) PT INR Fibrinogen dRVVT Confirm Interp Factor V Activity POC ABG pH POC ABG pCO2 POC ABG pO2 Sodium 134 L Potassium Chloride 97.2 L Carbon Dioxide 20 L BUN 58 H Creatinine 2.9 H Glucose 147 H POC Glucose Lactic Acid Calcium Phosphorus 2.40 L Magnesium 2.40 H Direct Bilirubin AST ALT Alkaline Phosphatase Troponin T C-Reactive Protein Total Protein 5.8 L Albumin 2.2 L Prealbumin Triglycerides Cholesterol LDL Cholesterol Direct HDL Cholesterol Urine pH Urine WBC (Auto) Urine Creatinine Urine Total Protein Vancomycin Trough Rheumatoid Factor Complement C4 58 H Miscellaneous Test Crossmatch 09/07/16 09/07/16 09/07/16 11:50 16:00 17:31 WBC RBC Hgb Hct MCV MCH MCHC RDW Plt Count Lymph % (Auto) C[place] % (Auto) Lymph # C[place] # Baso # Seg Neutrophils % Seg Neuts % (Manual) Lymphocytes % (Manual) Monocytes % (Manual) Eosinophils % (Manual) Basophils % (Manual) Nucleated RBC % Seg Neutrophils # Seg Neutrophils # Man Lymphocytes # (Manual) Monocytes # (Manual) Eosinophils # (Manual) PT INR Fibrinogen dRVVT Confirm Interp Factor V Activity POC ABG pH POC ABG pCO2 POC ABG pO2 158 H Sodium Potassium Chloride Carbon Dioxide BUN Creatinine Glucose POC Glucose 175 H Lactic Acid Calcium Phosphorus Magnesium Direct Bilirubin AST ALT Alkaline Phosphatase Troponin T C-Reactive Protein Total Protein Albumin Prealbumin Triglycerides Cholesterol LDL Cholesterol Direct HDL Cholesterol Urine pH Urine WBC (Auto) Urine Creatinine 66.3 H Urine Total Protein Vancomycin Trough Rheumatoid Factor Complement C4 Miscellaneous Test Crossmatch 09/07/16 09/08/16 09/08/16 23:50 05:46 06:18 WBC 17.8 H RBC 3.58 L Hgb 8.1 L Hct 25.5 L MCV 71 L MCH 23 L MCHC RDW 18.4 H Plt Count Lymph % (Auto) C[place] % (Auto) Lymph # [place] # Baso # Seg Neutrophils % Seg Neuts % (Manual) 92.0 H Lymphocytes % (Manual) 6.0 L Monocytes % (Manual) Eosinophils % (Manual) Basophils % (Manual) Nucleated RBC % Seg Neutrophils # Seg Neutrophils # Man 16.4 H Lymphocytes # (Manual) 1.1 L Monocytes # (Manual) Eosinophils # (Manual) PT INR Fibrinogen dRVVT Confirm Interp Factor V Activity POC ABG pH POC ABG pCO2 34.3 L POC ABG pO2 71 L Sodium Potassium Chloride Carbon Dioxide BUN Creatinine Glucose POC Glucose 216 H Lactic Acid Calcium Phosphorus Magnesium Direct Bilirubin AST ALT Alkaline Phosphatase Troponin T C-Reactive Protein Total Protein Albumin Prealbumin Triglycerides Cholesterol LDL Cholesterol Direct HDL Cholesterol Urine pH Urine WBC (Auto) Urine Creatinine Urine Total Protein Vancomycin Trough Rheumatoid Factor Complement C4 Miscellaneous Test Crossmatch 09/08/16 09/08/16 09/08/16 06:18 06:51 10:55 WBC RBC Hgb Hct MCV MCH MCHC RDW Plt Count Lymph % (Auto) C[place] % (Auto) Lymph # C[place] # Baso # Seg Neutrophils % Seg Neuts % (Manual) Lymphocytes % (Manual) Monocytes % (Manual) Eosinophils % (Manual) Basophils % (Manual) Nucleated RBC % Seg Neutrophils # Seg Neutrophils # Man Lymphocytes # (Manual) Monocytes # (Manual) Eosinophils # (Manual) PT INR Fibrinogen dRVVT Confirm Interp Factor V Activity POC ABG pH POC ABG pCO2 POC ABG pO2 Sodium 133 L Potassium Chloride 96.9 L Carbon Dioxide 20 L BUN 63 H Creatinine 2.7 H Glucose 195 H POC Glucose 204 H 169 H Lactic Acid Calcium Phosphorus Magnesium Direct Bilirubin AST ALT Alkaline Phosphatase Troponin T C-Reactive Protein Total Protein Albumin Prealbumin Triglycerides Cholesterol LDL Cholesterol Direct HDL Cholesterol Urine pH Urine WBC (Auto) Urine Creatinine Urine Total Protein Vancomycin Trough Rheumatoid Factor Complement C4 Miscellaneous Test Crossmatch 09/08/16 09/08/16 09/08/16 11:48 11:48 11:48 WBC RBC Hgb Hct MCV MCH MCHC RDW Plt Count Lymph % (Auto) C[place] % (Auto) Lymph # C[place] # Baso # Seg Neutrophils % Seg Neuts % (Manual) Lymphocytes % (Manual) Monocytes % (Manual) Eosinophils % (Manual) Basophils % (Manual) Nucleated RBC % Seg Neutrophils # Seg Neutrophils # Man Lymphocytes # (Manual) Monocytes # (Manual) Eosinophils # (Manual) PT INR Fibrinogen 750 H dRVVT Confirm Interp Factor V Activity POC ABG pH POC ABG pCO2 POC ABG pO2 Sodium Potassium Chloride Carbon Dioxide BUN Creatinine Glucose POC Glucose Lactic Acid Calcium Phosphorus Magnesium Direct Bilirubin AST ALT Alkaline Phosphatase Troponin T C-Reactive Protein 15.70 H Total Protein Albumin Prealbumin Triglycerides Cholesterol LDL Cholesterol Direct HDL Cholesterol Urine pH Urine WBC (Auto) Urine Creatinine Urine Total Protein Vancomycin Trough Rheumatoid Factor 24 H Complement C4 Miscellaneous Test Crossmatch 09/08/16 09/08/16 09/09/16 15:35 18:25 00:24 WBC RBC Hgb Hct MCV MCH MCHC RDW Plt Count Lymph % (Auto) [place] % (Auto) Lymph # [place] # Baso # Seg Neutrophils % Seg Neuts % (Manual) Lymphocytes % (Manual) Monocytes % (Manual) Eosinophils % (Manual) Basophils % (Manual) Nucleated RBC % Seg Neutrophils # Seg Neutrophils # Man Lymphocytes # (Manual) Monocytes # (Manual) Eosinophils # (Manual) PT INR Fibrinogen dRVVT Confirm Interp Factor V Activity 182 H POC ABG pH POC ABG pCO2 POC ABG pO2 Sodium Potassium Chloride Carbon Dioxide BUN Creatinine Glucose POC Glucose 184 H 216 H Lactic Acid Calcium Phosphorus Magnesium Direct Bilirubin AST ALT Alkaline Phosphatase Troponin T C-Reactive Protein Total Protein Albumin Prealbumin Triglycerides Cholesterol LDL Cholesterol Direct HDL Cholesterol Urine pH Urine WBC (Auto) Urine Creatinine Urine Total Protein Vancomycin Trough Rheumatoid Factor Complement C4 Miscellaneous Test Crossmatch 09/09/16 09/09/16 09/09/16 03:00 03:00 04:04 WBC 27.9 H RBC Hgb 8.7 L Hct 28.1 L MCV 72 L MCH 22 L MCHC RDW 18.4 H Plt Count 485 H Lymph % (Auto) [place] % (Auto) Lymph # [place] # Baso # Seg Neutrophils % Seg Neuts % (Manual) 77.0 H Lymphocytes % (Manual) 9.0 L Monocytes % (Manual) Eosinophils % (Manual) Basophils % (Manual) Nucleated RBC % Seg Neutrophils # Seg Neutrophils # Man 21.5 H Lymphocytes # (Manual) Monocytes # (Manual) 2.0 H Eosinophils # (Manual) PT INR Fibrinogen dRVVT Confirm Interp Factor V Activity POC ABG pH POC ABG pCO2 POC ABG pO2 121 H Sodium 135 L Potassium Chloride 96.3 L Carbon Dioxide 21 L BUN 83 H Creatinine 3.0 H Glucose 135 H POC Glucose Lactic Acid Calcium Phosphorus Magnesium Direct Bilirubin AST ALT Alkaline Phosphatase Troponin T C-Reactive Protein Total Protein Albumin Prealbumin Triglycerides Cholesterol LDL Cholesterol Direct HDL Cholesterol Urine pH Urine WBC (Auto) Urine Creatinine Urine Total Protein Vancomycin Trough Rheumatoid Factor Complement C4 Miscellaneous Test Crossmatch 09/09/16 09/09/16 09/09/16 05:41 11:55 14:13 WBC RBC Hgb Hct MCV MCH MCHC RDW Plt Count Lymph % (Auto) [place] % (Auto) Lymph # [place] # Baso # Seg Neutrophils % Seg Neuts % (Manual) Lymphocytes % (Manual) Monocytes % (Manual) Eosinophils % (Manual) Basophils % (Manual) Nucleated RBC % Seg Neutrophils # Seg Neutrophils # Man Lymphocytes # (Manual) Monocytes # (Manual) Eosinophils # (Manual) PT INR Fibrinogen dRVVT Confirm Interp Factor V Activity POC ABG pH POC ABG pCO2 POC ABG pO2 Sodium Potassium Chloride Carbon Dioxide BUN Creatinine Glucose POC Glucose 155 H 186 H Lactic Acid Calcium Phosphorus Magnesium Direct Bilirubin AST ALT Alkaline Phosphatase Troponin T C-Reactive Protein Total Protein Albumin Prealbumin Triglycerides Cholesterol LDL Cholesterol Direct HDL Cholesterol Urine pH Urine WBC (Auto) 25.0 H Urine Creatinine Urine Total Protein Vancomycin Trough Rheumatoid Factor Complement C4 Miscellaneous Test Crossmatch 09/09/16 09/09/16 09/10/16 17:33 23:13 05:09 WBC RBC Hgb Hct MCV MCH MCHC RDW Plt Count Lymph % (Auto) [place] % (Auto) Lymph # [place] # Baso # Seg Neutrophils % Seg Neuts % (Manual) Lymphocytes % (Manual) Monocytes % (Manual) Eosinophils % (Manual) Basophils % (Manual) Nucleated RBC % Seg Neutrophils # Seg Neutrophils # Man Lymphocytes # (Manual) Monocytes # (Manual) Eosinophils # (Manual) PT INR Fibrinogen dRVVT Confirm Interp Factor V Activity POC ABG pH POC ABG pCO2 POC ABG pO2 74 L Sodium Potassium Chloride Carbon Dioxide BUN Creatinine Glucose POC Glucose 211 H 215 H Lactic Acid Calcium Phosphorus Magnesium Direct Bilirubin AST ALT Alkaline Phosphatase Troponin T C-Reactive Protein Total Protein Albumin Prealbumin Triglycerides Cholesterol LDL Cholesterol Direct HDL Cholesterol Urine pH Urine WBC (Auto) Urine Creatinine Urine Total Protein Vancomycin Trough Rheumatoid Factor Complement C4 Miscellaneous Test Crossmatch 09/10/16 09/10/16 09/10/16 05:17 05:17 11:31 WBC 15.8 H RBC 3.25 L Hgb 7.3 L Hct 22.9 L MCV 71 L MCH 23 L MCHC RDW 18.4 H Plt Count Lymph % (Auto) [place] % (Auto) Lymph # [place] # Baso # Seg Neutrophils % Seg Neuts % (Manual) 91.0 H Lymphocytes % (Manual) 4.0 L Monocytes % (Manual) Eosinophils % (Manual) Basophils % (Manual) Nucleated RBC % Seg Neutrophils # Seg Neutrophils # Man 14.4 H Lymphocytes # (Manual) 0.6 L Monocytes # (Manual) Eosinophils # (Manual) PT INR Fibrinogen dRVVT Confirm Interp Factor V Activity POC ABG pH POC ABG pCO2 POC ABG pO2 Sodium Potassium Chloride Carbon Dioxide 21 L BUN 93 H Creatinine 2.9 H Glucose 146 H POC Glucose 188 H Lactic Acid Calcium 8.1 L Phosphorus Magnesium Direct Bilirubin AST ALT Alkaline Phosphatase Troponin T C-Reactive Protein Total Protein Albumin Prealbumin Triglycerides Cholesterol LDL Cholesterol Direct HDL Cholesterol Urine pH Urine WBC (Auto) Urine Creatinine Urine Total Protein Vancomycin Trough Rheumatoid Factor Complement C4 Miscellaneous Test Crossmatch 09/10/16 09/10/16 09/10/16 13:17 17:20 23:32 WBC RBC Hgb Hct MCV MCH MCHC RDW Plt Count Lymph % (Auto) [place] % (Auto) Lymph # [place] # Baso # Seg Neutrophils % Seg Neuts % (Manual) Lymphocytes % (Manual) Monocytes % (Manual) Eosinophils % (Manual) Basophils % (Manual) Nucleated RBC % Seg Neutrophils # Seg Neutrophils # Man Lymphocytes # (Manual) Monocytes # (Manual) Eosinophils # (Manual) PT INR Fibrinogen dRVVT Confirm Interp Factor V Activity POC ABG pH POC ABG pCO2 POC ABG pO2 Sodium Potassium Chloride Carbon Dioxide BUN Creatinine Glucose POC Glucose 199 H 186 H Lactic Acid Calcium Phosphorus Magnesium Direct Bilirubin AST ALT Alkaline Phosphatase Troponin T C-Reactive Protein Total Protein Albumin Prealbumin Triglycerides Cholesterol LDL Cholesterol Direct HDL Cholesterol Urine pH Urine WBC (Auto) Urine Creatinine Urine Total Protein Vancomycin Trough Rheumatoid Factor Complement C4 Miscellaneous Test Crossmatch See Detail 09/11/16 09/11/16 09/11/16 05:10 05:10 05:17 WBC 28.4 H RBC Hgb 9.2 L Hct 29.3 L D MCV 73 L MCH 23 L MCHC RDW 18.9 H Plt Count 452 H Lymph % (Auto) [place] % (Auto) Lymph # [place] # Baso # Seg Neutrophils % Seg Neuts % (Manual) 89.5 H Lymphocytes % (Manual) 2.0 L Monocytes % (Manual) Eosinophils % (Manual) Basophils % (Manual) Nucleated RBC % Seg Neutrophils # Seg Neutrophils # Man 25.4 H Lymphocytes # (Manual) 0.6 L Monocytes # (Manual) 1.3 H Eosinophils # (Manual) PT INR Fibrinogen dRVVT Confirm Interp Factor V Activity POC ABG pH POC ABG pCO2 POC ABG pO2 Sodium 136 L Potassium Chloride Carbon Dioxide 18 L BUN 107 H Creatinine 2.6 H Glucose 187 H POC Glucose 230 H Lactic Acid Calcium 8.3 L Phosphorus Magnesium Direct Bilirubin AST ALT Alkaline Phosphatase Troponin T C-Reactive Protein Total Protein Albumin Prealbumin Triglycerides Cholesterol LDL Cholesterol Direct HDL Cholesterol Urine pH Urine WBC (Auto) Urine Creatinine Urine Total Protein Vancomycin Trough Rheumatoid Factor Complement C4 Miscellaneous Test Crossmatch 09/11/16 09/11/16 09/11/16 05:55 12:02 17:32 WBC RBC Hgb Hct MCV MCH MCHC RDW Plt Count Lymph % (Auto) [place] % (Auto) Lymph # [place] # Baso # Seg Neutrophils % Seg Neuts % (Manual) Lymphocytes % (Manual) Monocytes % (Manual) Eosinophils % (Manual) Basophils % (Manual) Nucleated RBC % Seg Neutrophils # Seg Neutrophils # Man Lymphocytes # (Manual) Monocytes # (Manual) Eosinophils # (Manual) PT INR Fibrinogen dRVVT Confirm Interp Factor V Activity POC ABG pH POC ABG pCO2 33.8 L POC ABG pO2 Sodium Potassium Chloride Carbon Dioxide BUN Creatinine Glucose POC Glucose 191 H 239 H Lactic Acid Calcium Phosphorus Magnesium Direct Bilirubin AST ALT Alkaline Phosphatase Troponin T C-Reactive Protein Total Protein Albumin Prealbumin Triglycerides Cholesterol LDL Cholesterol Direct HDL Cholesterol Urine pH Urine WBC (Auto) Urine Creatinine Urine Total Protein Vancomycin Trough Rheumatoid Factor Complement C4 Miscellaneous Test Crossmatch 09/11/16 09/12/16 09/12/16 23:52 05:09 05:32 WBC RBC Hgb Hct MCV MCH MCHC RDW Plt Count Lymph % (Auto) [place] % (Auto) Lymph # [place] # Baso # Seg Neutrophils % Seg Neuts % (Manual) Lymphocytes % (Manual) Monocytes % (Manual) Eosinophils % (Manual) Basophils % (Manual) Nucleated RBC % Seg Neutrophils # Seg Neutrophils # Man Lymphocytes # (Manual) Monocytes # (Manual) Eosinophils # (Manual) PT INR Fibrinogen dRVVT Confirm Interp Factor V Activity POC ABG pH POC ABG pCO2 34.6 L POC ABG pO2 Sodium Potassium Chloride Carbon Dioxide BUN Creatinine Glucose POC Glucose 265 H 184 H Lactic Acid Calcium Phosphorus Magnesium Direct Bilirubin AST ALT Alkaline Phosphatase Troponin T C-Reactive Protein Total Protein Albumin Prealbumin Triglycerides Cholesterol LDL Cholesterol Direct HDL Cholesterol Urine pH Urine WBC (Auto) Urine Creatinine Urine Total Protein Vancomycin Trough Rheumatoid Factor Complement C4 Miscellaneous Test Crossmatch 09/12/16 09/12/16 09/12/16 06:45 06:45 07:22 WBC 31.7 H RBC 3.54 L Hgb 8.3 L Hct 25.9 L MCV 73 L MCH 23 L MCHC RDW 18.9 H Plt Count Lymph % (Auto) [place] % (Auto) Lymph # [place] # Baso # Seg Neutrophils % Seg Neuts % (Manual) 88.5 H Lymphocytes % (Manual) 4.5 L Monocytes % (Manual) Eosinophils % (Manual) Basophils % (Manual) Nucleated RBC % Seg Neutrophils # Seg Neutrophils # Man 28.1 H Lymphocytes # (Manual) Monocytes # (Manual) 1.0 H Eosinophils # (Manual) PT INR Fibrinogen dRVVT Confirm Interp Factor V Activity POC ABG pH POC ABG pCO2 POC ABG pO2 Sodium Potassium Chloride Carbon Dioxide 20 L BUN 115 H Creatinine 2.7 H Glucose 165 H POC Glucose Lactic Acid Calcium 8.0 L Phosphorus Magnesium Direct Bilirubin AST ALT Alkaline Phosphatase Troponin T C-Reactive Protein Total Protein Albumin Prealbumin Triglycerides 217 H Cholesterol LDL Cholesterol Direct HDL Cholesterol Urine pH Urine WBC (Auto) Urine Creatinine Urine Total Protein Vancomycin Trough Rheumatoid Factor Complement C4 Miscellaneous Test Crossmatch 09/12/16 09/12/16 09/12/16 07:22 09:59 12:21 WBC RBC Hgb Hct MCV MCH MCHC RDW Plt Count Lymph % (Auto) [place] % (Auto) Lymph # [place] # Baso # Seg Neutrophils % Seg Neuts % (Manual) Lymphocytes % (Manual) Monocytes % (Manual) Eosinophils % (Manual) Basophils % (Manual) Nucleated RBC % Seg Neutrophils # Seg Neutrophils # Man Lymphocytes # (Manual) Monocytes # (Manual) Eosinophils # (Manual) PT INR Fibrinogen dRVVT Confirm Interp Positive H Factor V Activity POC ABG pH POC ABG pCO2 POC ABG pO2 Sodium Potassium Chloride Carbon Dioxide BUN Creatinine Glucose POC Glucose 224 H Lactic Acid Calcium Phosphorus Magnesium Direct Bilirubin AST ALT Alkaline Phosphatase Troponin T C-Reactive Protein 1.70 H Total Protein Albumin Prealbumin Triglycerides Cholesterol LDL Cholesterol Direct HDL Cholesterol Urine pH Urine WBC (Auto) Urine Creatinine Urine Total Protein Vancomycin Trough Rheumatoid Factor Complement C4 Miscellaneous Test Crossmatch 09/12/16 09/12/16 09/13/16 16:51 23:28 04:00 WBC 45.0 H* RBC Hgb 9.4 L Hct MCV 75 L MCH 23 L MCHC RDW 19.0 H Plt Count 470 H Lymph % (Auto) [place] % (Auto) Lymph # [place] # Baso # Seg Neutrophils % Seg Neuts % (Manual) 89.0 H Lymphocytes % (Manual) 5.0 L Monocytes % (Manual) Eosinophils % (Manual) Basophils % (Manual) Nucleated RBC % Seg Neutrophils # Seg Neutrophils # Man 40.1 H Lymphocytes # (Manual) Monocytes # (Manual) Eosinophils # (Manual) PT INR Fibrinogen dRVVT Confirm Interp Factor V Activity POC ABG pH POC ABG pCO2 POC ABG pO2 Sodium Potassium Chloride Carbon Dioxide BUN Creatinine Glucose POC Glucose 169 H 150 H Lactic Acid Calcium Phosphorus Magnesium Direct Bilirubin AST ALT Alkaline Phosphatase Troponin T C-Reactive Protein Total Protein Albumin Prealbumin Triglycerides Cholesterol LDL Cholesterol Direct HDL Cholesterol Urine pH Urine WBC (Auto) Urine Creatinine Urine Total Protein Vancomycin Trough Rheumatoid Factor Complement C4 Miscellaneous Test Crossmatch 09/13/16 09/13/16 09/13/16 04:00 11:26 17:31 WBC RBC Hgb Hct MCV MCH MCHC RDW Plt Count Lymph % (Auto) [place] % (Auto) Lymph # [place] # Baso # Seg Neutrophils % Seg Neuts % (Manual) Lymphocytes % (Manual) Monocytes % (Manual) Eosinophils % (Manual) Basophils % (Manual) Nucleated RBC % Seg Neutrophils # Seg Neutrophils # Man Lymphocytes # (Manual) Monocytes # (Manual) Eosinophils # (Manual) PT INR Fibrinogen dRVVT Confirm Interp Factor V Activity POC ABG pH POC ABG pCO2 POC ABG pO2 Sodium Potassium Chloride Carbon Dioxide 20 L BUN 116 H Creatinine 3.0 H Glucose 172 H POC Glucose 140 H 183 H Lactic Acid Calcium Phosphorus Magnesium Direct Bilirubin AST ALT Alkaline Phosphatase Troponin T C-Reactive Protein Total Protein 6.2 L Albumin 2.9 L Prealbumin Triglycerides Cholesterol LDL Cholesterol Direct HDL Cholesterol Urine pH Urine WBC (Auto) Urine Creatinine Urine Total Protein Vancomycin Trough Rheumatoid Factor Complement C4 Miscellaneous Test Crossmatch 09/13/16 09/14/16 09/14/16 23:23 04:06 04:07 WBC 29.4 H RBC Hgb 8.9 L Hct 27.3 L MCV 75 L MCH 24 L MCHC RDW 19.1 H Plt Count Lymph % (Auto) [place] % (Auto) Lymph # [place] # Baso # Seg Neutrophils % Seg Neuts % (Manual) 84.0 H Lymphocytes % (Manual) 6.0 L Monocytes % (Manual) 9.0 H Eosinophils % (Manual) Basophils % (Manual) Nucleated RBC % Seg Neutrophils # Seg Neutrophils # Man 24.7 H Lymphocytes # (Manual) Monocytes # (Manual) 2.6 H Eosinophils # (Manual) PT INR Fibrinogen dRVVT Confirm Interp Factor V Activity POC ABG pH 7.342 L POC ABG pCO2 POC ABG pO2 116 H Sodium Potassium Chloride Carbon Dioxide BUN Creatinine Glucose POC Glucose 154 H Lactic Acid Calcium Phosphorus Magnesium Direct Bilirubin AST ALT Alkaline Phosphatase Troponin T C-Reactive Protein Total Protein Albumin Prealbumin Triglycerides Cholesterol LDL Cholesterol Direct HDL Cholesterol Urine pH Urine WBC (Auto) Urine Creatinine Urine Total Protein Vancomycin Trough Rheumatoid Factor Complement C4 Miscellaneous Test Crossmatch 09/14/16 09/14/16 09/14/16 04:07 05:29 12:19 WBC RBC Hgb Hct MCV MCH MCHC RDW Plt Count Lymph % (Auto) [place] % (Auto) Lymph # [place] # Baso # Seg Neutrophils % Seg Neuts % (Manual) Lymphocytes % (Manual) Monocytes % (Manual) Eosinophils % (Manual) Basophils % (Manual) Nucleated RBC % Seg Neutrophils # Seg Neutrophils # Man Lymphocytes # (Manual) Monocytes # (Manual) Eosinophils # (Manual) PT INR Fibrinogen dRVVT Confirm Interp Factor V Activity POC ABG pH POC ABG pCO2 POC ABG pO2 Sodium 136 L Potassium Chloride Carbon Dioxide 18 L BUN 121 H Creatinine 2.8 H Glucose 214 H POC Glucose 239 H 181 H Lactic Acid Calcium Phosphorus Magnesium Direct Bilirubin AST ALT Alkaline Phosphatase Troponin T C-Reactive Protein Total Protein Albumin Prealbumin Triglycerides Cholesterol LDL Cholesterol Direct HDL Cholesterol Urine pH Urine WBC (Auto) Urine Creatinine Urine Total Protein Vancomycin Trough Rheumatoid Factor Complement C4 Miscellaneous Test Crossmatch 09/14/16 09/14/16 09/15/16 18:12 23:37 05:00 WBC 26.1 H RBC 3.05 L Hgb 7.2 L Hct 22.9 L MCV 75 L MCH 24 L MCHC RDW 19.0 H Plt Count Lymph % (Auto) [place] % (Auto) Lymph # [place] # Baso # Seg Neutrophils % Seg Neuts % (Manual) Lymphocytes % (Manual) Monocytes % (Manual) Eosinophils % (Manual) Basophils % (Manual) Nucleated RBC % Seg Neutrophils # Seg Neutrophils # Man Lymphocytes # (Manual) Monocytes # (Manual) Eosinophils # (Manual) PT INR Fibrinogen dRVVT Confirm Interp Factor V Activity POC ABG pH POC ABG pCO2 POC ABG pO2 Sodium Potassium Chloride Carbon Dioxide BUN Creatinine Glucose POC Glucose 266 H 154 H Lactic Acid Calcium Phosphorus Magnesium Direct Bilirubin AST ALT Alkaline Phosphatase Troponin T C-Reactive Protein Total Protein Albumin Prealbumin Triglycerides Cholesterol LDL Cholesterol Direct HDL Cholesterol Urine pH Urine WBC (Auto) Urine Creatinine Urine Total Protein Vancomycin Trough Rheumatoid Factor Complement C4 Miscellaneous Test Crossmatch 09/15/16 09/15/16 09/15/16 05:00 05:17 12:45 WBC RBC Hgb Hct MCV MCH MCHC RDW Plt Count Lymph % (Auto) [place] % (Auto) Lymph # [place] # Baso # Seg Neutrophils % Seg Neuts % (Manual) Lymphocytes % (Manual) Monocytes % (Manual) Eosinophils % (Manual) Basophils % (Manual) Nucleated RBC % Seg Neutrophils # Seg Neutrophils # Man Lymphocytes # (Manual) Monocytes # (Manual) Eosinophils # (Manual) PT INR Fibrinogen dRVVT Confirm Interp Factor V Activity POC ABG pH POC ABG pCO2 POC ABG pO2 Sodium Potassium 5.2 H Chloride Carbon Dioxide 18 L BUN 139 H Creatinine 3.7 H Glucose 227 H POC Glucose 226 H 244 H Lactic Acid Calcium 8.3 L Phosphorus Magnesium Direct Bilirubin AST ALT Alkaline Phosphatase Troponin T C-Reactive Protein Total Protein Albumin Prealbumin Triglycerides Cholesterol LDL Cholesterol Direct HDL Cholesterol Urine pH Urine WBC (Auto) Urine Creatinine Urine Total Protein Vancomycin Trough Rheumatoid Factor Complement C4 Miscellaneous Test Crossmatch 09/15/16 09/15/16 09/15/16 14:32 17:33 23:35 WBC RBC Hgb Hct MCV MCH MCHC RDW Plt Count Lymph % (Auto) [place] % (Auto) Lymph # [place] # Baso # Seg Neutrophils % Seg Neuts % (Manual) Lymphocytes % (Manual) Monocytes % (Manual) Eosinophils % (Manual) Basophils % (Manual) Nucleated RBC % Seg Neutrophils # Seg Neutrophils # Man Lymphocytes # (Manual) Monocytes # (Manual) Eosinophils # (Manual) PT INR Fibrinogen dRVVT Confirm Interp Factor V Activity POC ABG pH POC ABG pCO2 27.7 L POC ABG pO2 120 H Sodium Potassium Chloride Carbon Dioxide BUN Creatinine Glucose POC Glucose 232 H 167 H Lactic Acid Calcium Phosphorus Magnesium Direct Bilirubin AST ALT Alkaline Phosphatase Troponin T C-Reactive Protein Total Protein Albumin Prealbumin Triglycerides Cholesterol LDL Cholesterol Direct HDL Cholesterol Urine pH Urine WBC (Auto) Urine Creatinine Urine Total Protein Vancomycin Trough Rheumatoid Factor Complement C4 Miscellaneous Test Crossmatch 09/16/16 09/16/16 09/16/16 03:58 10:27 10:27 WBC 19.0 H RBC 2.77 L Hgb 6.5 L Hct 20.9 L MCV 76 L MCH 23 L MCHC RDW 19.3 H Plt Count Lymph % (Auto) 11.0 L [place] % (Auto) Lymph # [place] # 1.1 H Baso # Seg Neutrophils % 82.5 H Seg Neuts % (Manual) Lymphocytes % (Manual) Monocytes % (Manual) Eosinophils % (Manual) Basophils % (Manual) Nucleated RBC % Seg Neutrophils # 15.7 H Seg Neutrophils # Man Lymphocytes # (Manual) Monocytes # (Manual) Eosinophils # (Manual) PT INR Fibrinogen dRVVT Confirm Interp Factor V Activity POC ABG pH POC ABG pCO2 POC ABG pO2 Sodium Potassium Chloride 109.3 H Carbon Dioxide 18 L BUN 139 H Creatinine 4.1 H Glucose 144 H POC Glucose 146 H Lactic Acid Calcium 8.1 L Phosphorus Magnesium Direct Bilirubin AST ALT Alkaline Phosphatase Troponin T C-Reactive Protein Total Protein Albumin Prealbumin Triglycerides Cholesterol LDL Cholesterol Direct HDL Cholesterol Urine pH Urine WBC (Auto) Urine Creatinine Urine Total Protein Vancomycin Trough Rheumatoid Factor Complement C4 Miscellaneous Test Crossmatch 09/16/16 09/16/16 09/16/16 12:04 12:10 13:55 WBC RBC Hgb Hct MCV MCH MCHC RDW Plt Count Lymph % (Auto) [place] % (Auto) Lymph # [place] # Baso # Seg Neutrophils % Seg Neuts % (Manual) Lymphocytes % (Manual) Monocytes % (Manual) Eosinophils % (Manual) Basophils % (Manual) Nucleated RBC % Seg Neutrophils # Seg Neutrophils # Man Lymphocytes # (Manual) Monocytes # (Manual) Eosinophils # (Manual) PT INR Fibrinogen dRVVT Confirm Interp Factor V Activity POC ABG pH POC ABG pCO2 32.9 L POC ABG pO2 Sodium Potassium Chloride Carbon Dioxide BUN Creatinine Glucose POC Glucose 185 H Lactic Acid Calcium Phosphorus Magnesium Direct Bilirubin AST ALT Alkaline Phosphatase Troponin T C-Reactive Protein Total Protein Albumin Prealbumin Triglycerides Cholesterol LDL Cholesterol Direct HDL Cholesterol Urine pH Urine WBC (Auto) Urine Creatinine Urine Total Protein Vancomycin Trough Rheumatoid Factor Complement C4 Miscellaneous Test Crossmatch See Detail 09/16/16 09/16/16 09/16/16 17:55 19:19 23:48 WBC RBC Hgb Hct MCV MCH MCHC RDW Plt Count Lymph % (Auto) [place] % (Auto) Lymph # [place] # Baso # Seg Neutrophils % Seg Neuts % (Manual) Lymphocytes % (Manual) Monocytes % (Manual) Eosinophils % (Manual) Basophils % (Manual) Nucleated RBC % Seg Neutrophils # Seg Neutrophils # Man Lymphocytes # (Manual) Monocytes # (Manual) Eosinophils # (Manual) PT INR Fibrinogen dRVVT Confirm Interp Factor V Activity POC ABG pH POC ABG pCO2 POC ABG pO2 Sodium Potassium Chloride Carbon Dioxide BUN Creatinine Glucose POC Glucose 222 H 107 H Lactic Acid Calcium Phosphorus Magnesium Direct Bilirubin AST ALT Alkaline Phosphatase Troponin T C-Reactive Protein Total Protein Albumin Prealbumin Triglycerides Cholesterol LDL Cholesterol Direct HDL Cholesterol Urine pH Urine WBC (Auto) Urine Creatinine 47.4 H Urine Total Protein 16 H Vancomycin Trough Rheumatoid Factor Complement C4 Miscellaneous Test Crossmatch 09/17/16 09/17/16 09/17/16 03:45 03:45 04:55 WBC 19.6 H RBC 3.41 L Hgb 8.5 L Hct 26.7 L MCV 78 L MCH 25 L MCHC RDW 19.9 H Plt Count Lymph % (Auto) 9.3 L [place] % (Auto) Lymph # [place] # 1.2 H Baso # Seg Neutrophils % 83.9 H Seg Neuts % (Manual) Lymphocytes % (Manual) Monocytes % (Manual) Eosinophils % (Manual) Basophils % (Manual) Nucleated RBC % Seg Neutrophils # 16.4 H Seg Neutrophils # Man Lymphocytes # (Manual) Monocytes # (Manual) Eosinophils # (Manual) PT INR Fibrinogen dRVVT Confirm Interp Factor V Activity POC ABG pH POC ABG pCO2 POC ABG pO2 Sodium 146 H Potassium 5.1 H Chloride 110.9 H Carbon Dioxide 16 L BUN 146 H Creatinine 4.0 H Glucose 108 H POC Glucose 133 H Lactic Acid Calcium Phosphorus Magnesium 3.00 H Direct Bilirubin AST ALT Alkaline Phosphatase Troponin T C-Reactive Protein Total Protein Albumin Prealbumin Triglycerides Cholesterol LDL Cholesterol Direct HDL Cholesterol Urine pH Urine WBC (Auto) Urine Creatinine Urine Total Protein Vancomycin Trough Rheumatoid Factor Complement C4 Miscellaneous Test Crossmatch 09/17/16 09/17/16 09/17/16 11:15 17:33 23:47 WBC RBC Hgb Hct MCV MCH MCHC RDW Plt Count Lymph % (Auto) [place] % (Auto) Lymph # [place] # Baso # Seg Neutrophils % Seg Neuts % (Manual) Lymphocytes % (Manual) Monocytes % (Manual) Eosinophils % (Manual) Basophils % (Manual) Nucleated RBC % Seg Neutrophils # Seg Neutrophils # Man Lymphocytes # (Manual) Monocytes # (Manual) Eosinophils # (Manual) PT INR Fibrinogen dRVVT Confirm Interp Factor V Activity POC ABG pH POC ABG pCO2 POC ABG pO2 Sodium Potassium Chloride Carbon Dioxide BUN Creatinine Glucose POC Glucose 176 H 246 H 148 H Lactic Acid Calcium Phosphorus Magnesium Direct Bilirubin AST ALT Alkaline Phosphatase Troponin T C-Reactive Protein Total Protein Albumin Prealbumin Triglycerides Cholesterol LDL Cholesterol Direct HDL Cholesterol Urine pH Urine WBC (Auto) Urine Creatinine Urine Total Protein Vancomycin Trough Rheumatoid Factor Complement C4 Miscellaneous Test Crossmatch 09/18/16 09/18/16 09/18/16 05:33 08:31 08:31 WBC 18.0 H RBC 3.17 L Hgb 9.0 L Hct 25.7 L MCV MCH MCHC 35 H RDW 20.4 H Plt Count Lymph % (Auto) [place] % (Auto) Lymph # [place] # Baso # Seg Neutrophils % Seg Neuts % (Manual) Lymphocytes % (Manual) Monocytes % (Manual) Eosinophils % (Manual) Basophils % (Manual) Nucleated RBC % Seg Neutrophils # Seg Neutrophils # Man Lymphocytes # (Manual) Monocytes # (Manual) Eosinophils # (Manual) PT INR Fibrinogen dRVVT Confirm Interp Factor V Activity POC ABG pH POC ABG pCO2 POC ABG pO2 Sodium Potassium Chloride Carbon Dioxide 15 L BUN 124 H Creatinine 3.8 H Glucose POC Glucose 120 H Lactic Acid Calcium 8.1 L Phosphorus Magnesium Direct Bilirubin AST ALT Alkaline Phosphatase Troponin T C-Reactive Protein Total Protein Albumin Prealbumin Triglycerides Cholesterol LDL Cholesterol Direct HDL Cholesterol Urine pH Urine WBC (Auto) Urine Creatinine Urine Total Protein Vancomycin Trough Rheumatoid Factor Complement C4 Miscellaneous Test Crossmatch 09/18/16 09/18/16 09/18/16 12:03 15:34 17:50 WBC RBC Hgb Hct MCV MCH MCHC RDW Plt Count Lymph % (Auto) [place] % (Auto) Lymph # [place] # Baso # Seg Neutrophils % Seg Neuts % (Manual) Lymphocytes % (Manual) Monocytes % (Manual) Eosinophils % (Manual) Basophils % (Manual) Nucleated RBC % Seg Neutrophils # Seg Neutrophils # Man Lymphocytes # (Manual) Monocytes # (Manual) Eosinophils # (Manual) PT INR Fibrinogen dRVVT Confirm Interp Factor V Activity POC ABG pH POC ABG pCO2 25.7 L POC ABG pO2 66 L Sodium Potassium Chloride Carbon Dioxide BUN Creatinine Glucose POC Glucose 156 H 220 H Lactic Acid Calcium Phosphorus Magnesium Direct Bilirubin AST ALT Alkaline Phosphatase Troponin T C-Reactive Protein Total Protein Albumin Prealbumin Triglycerides Cholesterol LDL Cholesterol Direct HDL Cholesterol Urine pH Urine WBC (Auto) Urine Creatinine Urine Total Protein Vancomycin Trough Rheumatoid Factor Complement C4 Miscellaneous Test Crossmatch 09/19/16 09/19/16 09/19/16 06:21 09:50 09:50 WBC 17.1 H RBC 3.49 L Hgb 9.0 L Hct 28.1 L MCV MCH 26 L MCHC RDW 20.8 H Plt Count Lymph % (Auto) 11.5 L [place] % (Auto) 7.5 H Lymph # [place] # 1.3 H Baso # Seg Neutrophils % 79.8 H Seg Neuts % (Manual) Lymphocytes % (Manual) Monocytes % (Manual) Eosinophils % (Manual) Basophils % (Manual) Nucleated RBC % Seg Neutrophils # 13.7 H Seg Neutrophils # Man Lymphocytes # (Manual) Monocytes # (Manual) Eosinophils # (Manual) PT INR Fibrinogen dRVVT Confirm Interp Factor V Activity POC ABG pH POC ABG pCO2 POC ABG pO2 Sodium Potassium Chloride 108.6 H Carbon Dioxide 15 L BUN 125 H Creatinine 4.1 H Glucose 124 H POC Glucose 119 H Lactic Acid Calcium Phosphorus Magnesium Direct Bilirubin AST ALT Alkaline Phosphatase Troponin T C-Reactive Protein Total Protein Albumin Prealbumin Triglycerides Cholesterol LDL Cholesterol Direct HDL Cholesterol Urine pH Urine WBC (Auto) Urine Creatinine Urine Total Protein Vancomycin Trough Rheumatoid Factor Complement C4 Miscellaneous Test Crossmatch 09/19/16 09/19/16 09/19/16 11:25 17:53 23:36 WBC RBC Hgb Hct MCV MCH MCHC RDW Plt Count Lymph % (Auto) [place] % (Auto) Lymph # [place] # Baso # Seg Neutrophils % Seg Neuts % (Manual) Lymphocytes % (Manual) Monocytes % (Manual) Eosinophils % (Manual) Basophils % (Manual) Nucleated RBC % Seg Neutrophils # Seg Neutrophils # Man Lymphocytes # (Manual) Monocytes # (Manual) Eosinophils # (Manual) PT INR Fibrinogen dRVVT Confirm Interp Factor V Activity POC ABG pH POC ABG pCO2 POC ABG pO2 Sodium Potassium Chloride Carbon Dioxide BUN Creatinine Glucose POC Glucose 160 H 245 H 121 H Lactic Acid Calcium Phosphorus Magnesium Direct Bilirubin AST ALT Alkaline Phosphatase Troponin T C-Reactive Protein Total Protein Albumin Prealbumin Triglycerides Cholesterol LDL Cholesterol Direct HDL Cholesterol Urine pH Urine WBC (Auto) Urine Creatinine Urine Total Protein Vancomycin Trough Rheumatoid Factor Complement C4 Miscellaneous Test Crossmatch 09/20/16 09/20/16 09/20/16 04:10 04:10 04:10 WBC 17.0 H RBC 3.21 L Hgb 8.2 L Hct 25.5 L MCV MCH 26 L MCHC RDW 20.9 H Plt Count Lymph % (Auto) [place] % (Auto) Lymph # [place] # Baso # Seg Neutrophils % Seg Neuts % (Manual) Lymphocytes % (Manual) Monocytes % (Manual) Eosinophils % (Manual) Basophils % (Manual) Nucleated RBC % Seg Neutrophils # Seg Neutrophils # Man Lymphocytes # (Manual) Monocytes # (Manual) Eosinophils # (Manual) PT INR Fibrinogen dRVVT Confirm Interp Factor V Activity POC ABG pH POC ABG pCO2 POC ABG pO2 Sodium Potassium Chloride 111.0 H Carbon Dioxide 16 L BUN 129 H Creatinine 3.7 H Glucose 115 H POC Glucose Lactic Acid Calcium 8.2 L Phosphorus Magnesium Direct Bilirubin AST ALT Alkaline Phosphatase Troponin T C-Reactive Protein Total Protein Albumin Prealbumin Triglycerides 243 H Cholesterol LDL Cholesterol Direct HDL Cholesterol Urine pH Urine WBC (Auto) Urine Creatinine Urine Total Protein Vancomycin Trough Rheumatoid Factor Complement C4 Miscellaneous Test Crossmatch 09/20/16 09/20/16 09/20/16 05:40 11:52 16:50 WBC RBC Hgb Hct MCV MCH MCHC RDW Plt Count Lymph % (Auto) [place] % (Auto) Lymph # [place] # Baso # Seg Neutrophils % Seg Neuts % (Manual) Lymphocytes % (Manual) Monocytes % (Manual) Eosinophils % (Manual) Basophils % (Manual) Nucleated RBC % Seg Neutrophils # Seg Neutrophils # Man Lymphocytes # (Manual) Monocytes # (Manual) Eosinophils # (Manual) PT INR Fibrinogen dRVVT Confirm Interp Factor V Activity POC ABG pH POC ABG pCO2 POC ABG pO2 Sodium Potassium Chloride Carbon Dioxide BUN Creatinine Glucose POC Glucose 131 H 183 H 236 H Lactic Acid Calcium Phosphorus Magnesium Direct Bilirubin AST ALT Alkaline Phosphatase Troponin T C-Reactive Protein Total Protein Albumin Prealbumin Triglycerides Cholesterol LDL Cholesterol Direct HDL Cholesterol Urine pH Urine WBC (Auto) Urine Creatinine Urine Total Protein Vancomycin Trough Rheumatoid Factor Complement C4 Miscellaneous Test Crossmatch 09/20/16 09/21/16 09/21/16 23:51 03:30 04:44 WBC RBC Hgb Hct MCV MCH MCHC RDW Plt Count Lymph % (Auto) [place] % (Auto) Lymph # [place] # Baso # Seg Neutrophils % Seg Neuts % (Manual) Lymphocytes % (Manual) Monocytes % (Manual) Eosinophils % (Manual) Basophils % (Manual) Nucleated RBC % Seg Neutrophils # Seg Neutrophils # Man Lymphocytes # (Manual) Monocytes # (Manual) Eosinophils # (Manual) PT INR Fibrinogen dRVVT Confirm Interp Factor V Activity POC ABG pH POC ABG pCO2 POC ABG pO2 Sodium Potassium Chloride Carbon Dioxide BUN Creatinine Glucose POC Glucose 114 H 141 H Lactic Acid Calcium Phosphorus Magnesium 2.70 H Direct Bilirubin AST ALT Alkaline Phosphatase Troponin T C-Reactive Protein Total Protein Albumin Prealbumin Triglycerides Cholesterol LDL Cholesterol Direct HDL Cholesterol Urine pH Urine WBC (Auto) Urine Creatinine Urine Total Protein Vancomycin Trough Rheumatoid Factor Complement C4 Miscellaneous Test Crossmatch 09/21/16 09/21/16 09/21/16 07:45 07:45 10:01 WBC 13.8 H RBC 2.94 L Hgb 7.5 L Hct 23.5 L MCV MCH 26 L MCHC RDW 21.2 H Plt Count Lymph % (Auto) 6.9 L [place] % (Auto) 9.4 H Lymph # 0.9 L [place] # 1.3 H Baso # Seg Neutrophils % 83.2 H Seg Neuts % (Manual) Lymphocytes % (Manual) Monocytes % (Manual) Eosinophils % (Manual) Basophils % (Manual) Nucleated RBC % Seg Neutrophils # 11.5 H Seg Neutrophils # Man Lymphocytes # (Manual) Monocytes # (Manual) Eosinophils # (Manual) PT INR Fibrinogen dRVVT Confirm Interp Factor V Activity POC ABG pH 7.308 L POC ABG pCO2 31.9 L POC ABG pO2 148 H Sodium 147 H Potassium Chloride 114.2 H Carbon Dioxide 15 L BUN 120 H Creatinine 3.9 H Glucose 156 H POC Glucose Lactic Acid Calcium 8.2 L Phosphorus Magnesium Direct Bilirubin AST ALT Alkaline Phosphatase Troponin T C-Reactive Protein Total Protein Albumin Prealbumin Triglycerides Cholesterol LDL Cholesterol Direct HDL Cholesterol Urine pH Urine WBC (Auto) Urine Creatinine Urine Total Protein Vancomycin Trough Rheumatoid Factor Complement C4 Miscellaneous Test Crossmatch 09/21/16 09/21/16 09/21/16 12:00 12:03 13:00 WBC RBC Hgb Hct MCV MCH MCHC RDW Plt Count Lymph % (Auto) [place] % (Auto) Lymph # [place] # Baso # Seg Neutrophils % Seg Neuts % (Manual) Lymphocytes % (Manual) Monocytes % (Manual) Eosinophils % (Manual) Basophils % (Manual) Nucleated RBC % Seg Neutrophils # Seg Neutrophils # Man Lymphocytes # (Manual) Monocytes # (Manual) Eosinophils # (Manual) PT INR Fibrinogen dRVVT Confirm Interp Factor V Activity POC ABG pH POC ABG pCO2 POC ABG pO2 Sodium Potassium Chloride Carbon Dioxide BUN Creatinine Glucose POC Glucose 163 H Lactic Acid Calcium Phosphorus Magnesium Direct Bilirubin AST ALT Alkaline Phosphatase Troponin T C-Reactive Protein Total Protein Albumin Prealbumin Triglycerides Cholesterol LDL Cholesterol Direct HDL Cholesterol Urine pH Urine WBC (Auto) Urine Creatinine 54.8 H Urine Total Protein Vancomycin Trough 2.3 L Rheumatoid Factor Complement C4 Miscellaneous Test Crossmatch 09/21/16 09/21/16 09/22/16 16:51 23:17 06:27 WBC RBC Hgb Hct MCV MCH MCHC RDW Plt Count Lymph % (Auto) [place] % (Auto) Lymph # [place] # Baso # Seg Neutrophils % Seg Neuts % (Manual) Lymphocytes % (Manual) Monocytes % (Manual) Eosinophils % (Manual) Basophils % (Manual) Nucleated RBC % Seg Neutrophils # Seg Neutrophils # Man Lymphocytes # (Manual) Monocytes # (Manual) Eosinophils # (Manual) PT INR Fibrinogen dRVVT Confirm Interp Factor V Activity POC ABG pH POC ABG pCO2 POC ABG pO2 Sodium Potassium Chloride Carbon Dioxide BUN Creatinine Glucose POC Glucose 206 H 114 H 115 H Lactic Acid Calcium Phosphorus Magnesium Direct Bilirubin AST ALT Alkaline Phosphatase Troponin T C-Reactive Protein Total Protein Albumin Prealbumin Triglycerides Cholesterol LDL Cholesterol Direct HDL Cholesterol Urine pH Urine WBC (Auto) Urine Creatinine Urine Total Protein Vancomycin Trough Rheumatoid Factor Complement C4 Miscellaneous Test Crossmatch 09/22/16 09/22/16 09/22/16 07:50 07:50 12:00 WBC 17.8 H RBC 3.04 L Hgb 8.0 L Hct 24.7 L MCV MCH 26 L MCHC RDW 21.6 H Plt Count Lymph % (Auto) [place] % (Auto) Lymph # [place] # Baso # Seg Neutrophils % Seg Neuts % (Manual) Lymphocytes % (Manual) Monocytes % (Manual) Eosinophils % (Manual) Basophils % (Manual) Nucleated RBC % Seg Neutrophils # Seg Neutrophils # Man Lymphocytes # (Manual) Monocytes # (Manual) Eosinophils # (Manual) PT INR Fibrinogen dRVVT Confirm Interp Factor V Activity POC ABG pH POC ABG pCO2 POC ABG pO2 Sodium 150 H Potassium Chloride 118.2 H Carbon Dioxide 14 L BUN 111 H Creatinine 3.7 H Glucose 157 H POC Glucose 183 H Lactic Acid Calcium Phosphorus Magnesium Direct Bilirubin AST ALT Alkaline Phosphatase Troponin T C-Reactive Protein Total Protein Albumin Prealbumin Triglycerides Cholesterol LDL Cholesterol Direct HDL Cholesterol Urine pH Urine WBC (Auto) Urine Creatinine Urine Total Protein Vancomycin Trough Rheumatoid Factor Complement C4 Miscellaneous Test Crossmatch 09/22/16 09/22/16 09/23/16 17:29 23:10 05:00 WBC 19.2 H RBC 3.13 L Hgb 8.0 L Hct 25.2 L MCV MCH 26 L MCHC RDW 22.1 H Plt Count Lymph % (Auto) [place] % (Auto) Lymph # [place] # Baso # Seg Neutrophils % Seg Neuts % (Manual) 92.0 H Lymphocytes % (Manual) 3.0 L Monocytes % (Manual) Eosinophils % (Manual) Basophils % (Manual) Nucleated RBC % Seg Neutrophils # Seg Neutrophils # Man 17.7 H Lymphocytes # (Manual) 0.6 L Monocytes # (Manual) Eosinophils # (Manual) PT INR Fibrinogen dRVVT Confirm Interp Factor V Activity POC ABG pH POC ABG pCO2 POC ABG pO2 Sodium Potassium Chloride Carbon Dioxide BUN Creatinine Glucose POC Glucose 197 H 169 H Lactic Acid Calcium Phosphorus Magnesium Direct Bilirubin AST ALT Alkaline Phosphatase Troponin T C-Reactive Protein Total Protein Albumin Prealbumin Triglycerides Cholesterol LDL Cholesterol Direct HDL Cholesterol Urine pH Urine WBC (Auto) Urine Creatinine Urine Total Protein Vancomycin Trough Rheumatoid Factor Complement C4 Miscellaneous Test Crossmatch 09/23/16 09/23/16 09/23/16 05:00 05:00 05:10 WBC RBC Hgb Hct MCV MCH MCHC RDW Plt Count Lymph % (Auto) [place] % (Auto) Lymph # [place] # Baso # Seg Neutrophils % Seg Neuts % (Manual) Lymphocytes % (Manual) Monocytes % (Manual) Eosinophils % (Manual) Basophils % (Manual) Nucleated RBC % Seg Neutrophils # Seg Neutrophils # Man Lymphocytes # (Manual) Monocytes # (Manual) Eosinophils # (Manual) PT INR Fibrinogen dRVVT Confirm Interp Factor V Activity POC ABG pH POC ABG pCO2 POC ABG pO2 Sodium 147 H Potassium 3.2 L Chloride 115.7 H Carbon Dioxide 13 L BUN 111 H Creatinine 3.8 H Glucose 194 H POC Glucose 188 H Lactic Acid Calcium 7.3 L D Phosphorus Magnesium Direct Bilirubin AST ALT Alkaline Phosphatase Troponin T C-Reactive Protein 3.20 H Total Protein Albumin Prealbumin Triglycerides Cholesterol LDL Cholesterol Direct HDL Cholesterol Urine pH Urine WBC (Auto) Urine Creatinine Urine Total Protein Vancomycin Trough Rheumatoid Factor Complement C4 Miscellaneous Test Crossmatch 09/23/16 09/23/16 09/23/16 11:37 12:29 18:01 WBC RBC Hgb Hct MCV MCH MCHC RDW Plt Count Lymph % (Auto) [place] % (Auto) Lymph # [place] # Baso # Seg Neutrophils % Seg Neuts % (Manual) Lymphocytes % (Manual) Monocytes % (Manual) Eosinophils % (Manual) Basophils % (Manual) Nucleated RBC % Seg Neutrophils # Seg Neutrophils # Man Lymphocytes # (Manual) Monocytes # (Manual) Eosinophils # (Manual) PT INR Fibrinogen dRVVT Confirm Interp Factor V Activity POC ABG pH POC ABG pCO2 18.9 L POC ABG pO2 143 H Sodium Potassium Chloride Carbon Dioxide BUN Creatinine Glucose POC Glucose 153 H 108 H Lactic Acid Calcium Phosphorus Magnesium Direct Bilirubin AST ALT Alkaline Phosphatase Troponin T C-Reactive Protein Total Protein Albumin Prealbumin Triglycerides Cholesterol LDL Cholesterol Direct HDL Cholesterol Urine pH Urine WBC (Auto) Urine Creatinine Urine Total Protein Vancomycin Trough Rheumatoid Factor Complement C4 Miscellaneous Test Crossmatch 09/23/16 09/23/16 09/24/16 21:19 23:43 05:16 WBC RBC Hgb Hct MCV MCH MCHC RDW Plt Count Lymph % (Auto) [place] % (Auto) Lymph # [place] # Baso # Seg Neutrophils % Seg Neuts % (Manual) Lymphocytes % (Manual) Monocytes % (Manual) Eosinophils % (Manual) Basophils % (Manual) Nucleated RBC % Seg Neutrophils # Seg Neutrophils # Man Lymphocytes # (Manual) Monocytes # (Manual) Eosinophils # (Manual) PT INR Fibrinogen dRVVT Confirm Interp Factor V Activity POC ABG pH POC ABG pCO2 17.3 L POC ABG pO2 112 H Sodium Potassium Chloride Carbon Dioxide BUN Creatinine Glucose POC Glucose 143 H 164 H Lactic Acid Calcium Phosphorus Magnesium Direct Bilirubin AST ALT Alkaline Phosphatase Troponin T C-Reactive Protein Total Protein Albumin Prealbumin Triglycerides Cholesterol LDL Cholesterol Direct HDL Cholesterol Urine pH Urine WBC (Auto) Urine Creatinine Urine Total Protein Vancomycin Trough Rheumatoid Factor Complement C4 Miscellaneous Test Crossmatch 09/24/16 09/24/16 09/24/16 05:21 11:58 17:06 WBC RBC Hgb Hct MCV MCH MCHC RDW Plt Count Lymph % (Auto) [place] % (Auto) Lymph # [place] # Baso # Seg Neutrophils % Seg Neuts % (Manual) Lymphocytes % (Manual) Monocytes % (Manual) Eosinophils % (Manual) Basophils % (Manual) Nucleated RBC % Seg Neutrophils # Seg Neutrophils # Man Lymphocytes # (Manual) Monocytes # (Manual) Eosinophils # (Manual) PT INR Fibrinogen dRVVT Confirm Interp Factor V Activity POC ABG pH POC ABG pCO2 POC ABG pO2 Sodium Potassium Chloride Carbon Dioxide 10 L BUN 103 H Creatinine 4.3 H Glucose 163 H POC Glucose 173 H 167 H Lactic Acid Calcium 6.5 L Phosphorus Magnesium Direct Bilirubin AST ALT Alkaline Phosphatase Troponin T C-Reactive Protein Total Protein Albumin Prealbumin Triglycerides Cholesterol LDL Cholesterol Direct HDL Cholesterol Urine pH Urine WBC (Auto) Urine Creatinine Urine Total Protein Vancomycin Trough Rheumatoid Factor Complement C4 Miscellaneous Test Crossmatch 09/24/16 09/24/16 09/24/16 20:15 21:02 23:48 WBC RBC Hgb Hct MCV MCH MCHC RDW Plt Count Lymph % (Auto) [place] % (Auto) Lymph # [place] # Baso # Seg Neutrophils % Seg Neuts % (Manual) Lymphocytes % (Manual) Monocytes % (Manual) Eosinophils % (Manual) Basophils % (Manual) Nucleated RBC % Seg Neutrophils # Seg Neutrophils # Man Lymphocytes # (Manual) Monocytes # (Manual) Eosinophils # (Manual) PT INR Fibrinogen dRVVT Confirm Interp Factor V Activity POC ABG pH 7.288 L POC ABG pCO2 30.2 L 21.5 L POC ABG pO2 32 L 39 L Sodium Potassium Chloride Carbon Dioxide BUN Creatinine Glucose POC Glucose 109 H Lactic Acid Calcium Phosphorus Magnesium Direct Bilirubin AST ALT Alkaline Phosphatase Troponin T C-Reactive Protein Total Protein Albumin Prealbumin Triglycerides Cholesterol LDL Cholesterol Direct HDL Cholesterol Urine pH Urine WBC (Auto) Urine Creatinine Urine Total Protein Vancomycin Trough Rheumatoid Factor Complement C4 Miscellaneous Test Crossmatch 09/25/16 09/25/16 09/25/16 04:20 04:20 04:20 WBC RBC 2.58 L Hgb 7.0 L Hct 21.0 L MCV MCH 27 L MCHC RDW 23.8 H Plt Count Lymph % (Auto) [place] % (Auto) Lymph # [place] # Baso # Seg Neutrophils % Seg Neuts % (Manual) Lymphocytes % (Manual) 12.0 L Monocytes % (Manual) Eosinophils % (Manual) 7.0 H Basophils % (Manual) 2.0 H Nucleated RBC % Seg Neutrophils # Seg Neutrophils # Man Lymphocytes # (Manual) 0.9 L Monocytes # (Manual) Eosinophils # (Manual) 0.5 H PT INR Fibrinogen dRVVT Confirm Interp Factor V Activity POC ABG pH POC ABG pCO2 POC ABG pO2 Sodium Potassium Chloride Carbon Dioxide 15 L BUN 72 H Creatinine 3.8 H Glucose POC Glucose Lactic Acid Calcium 6.0 L Phosphorus 4.60 H Magnesium 1.60 L Direct Bilirubin AST ALT Alkaline Phosphatase Troponin T C-Reactive Protein Total Protein Albumin Prealbumin Triglycerides Cholesterol LDL Cholesterol Direct HDL Cholesterol Urine pH Urine WBC (Auto) Urine Creatinine Urine Total Protein Vancomycin Trough Rheumatoid Factor Complement C4 Miscellaneous Test Crossmatch 09/25/16 09/25/16 09/25/16 04:57 08:02 10:30 WBC RBC Hgb Hct MCV MCH MCHC RDW Plt Count Lymph % (Auto) [place] % (Auto) Lymph # [place] # Baso # Seg Neutrophils % Seg Neuts % (Manual) Lymphocytes % (Manual) Monocytes % (Manual) Eosinophils % (Manual) Basophils % (Manual) Nucleated RBC % Seg Neutrophils # Seg Neutrophils # Man Lymphocytes # (Manual) Monocytes # (Manual) Eosinophils # (Manual) PT INR Fibrinogen dRVVT Confirm Interp Factor V Activity POC ABG pH POC ABG pCO2 24.7 L POC ABG pO2 152 H Sodium Potassium Chloride Carbon Dioxide BUN Creatinine Glucose POC Glucose 113 H Lactic Acid Calcium Phosphorus Magnesium Direct Bilirubin AST ALT Alkaline Phosphatase Troponin T C-Reactive Protein Total Protein Albumin Prealbumin Triglycerides Cholesterol LDL Cholesterol Direct HDL Cholesterol Urine pH Urine WBC (Auto) Urine Creatinine Urine Total Protein Vancomycin Trough Rheumatoid Factor Complement C4 Miscellaneous Test Crossmatch See Detail 09/25/16 09/25/16 09/25/16 12:05 17:44 23:47 WBC RBC Hgb Hct MCV MCH MCHC RDW Plt Count Lymph % (Auto) [place] % (Auto) Lymph # [place] # Baso # Seg Neutrophils % Seg Neuts % (Manual) Lymphocytes % (Manual) Monocytes % (Manual) Eosinophils % (Manual) Basophils % (Manual) Nucleated RBC % Seg Neutrophils # Seg Neutrophils # Man Lymphocytes # (Manual) Monocytes # (Manual) Eosinophils # (Manual) PT INR Fibrinogen dRVVT Confirm Interp Factor V Activity POC ABG pH POC ABG pCO2 POC ABG pO2 Sodium Potassium Chloride Carbon Dioxide BUN Creatinine Glucose POC Glucose 117 H 119 H 150 H Lactic Acid Calcium Phosphorus Magnesium Direct Bilirubin AST ALT Alkaline Phosphatase Troponin T C-Reactive Protein Total Protein Albumin Prealbumin Triglycerides Cholesterol LDL Cholesterol Direct HDL Cholesterol Urine pH Urine WBC (Auto) Urine Creatinine Urine Total Protein Vancomycin Trough Rheumatoid Factor Complement C4 Miscellaneous Test Crossmatch 09/26/16 09/26/16 09/26/16 04:25 04:25 04:25 WBC RBC 2.65 L Hgb 7.4 L Hct 21.6 L MCV MCH MCHC RDW 22.5 H Plt Count Lymph % (Auto) [place] % (Auto) Lymph # [place] # Baso # Seg Neutrophils % Seg Neuts % (Manual) Lymphocytes % (Manual) 6.0 L Monocytes % (Manual) Eosinophils % (Manual) 11.0 H Basophils % (Manual) Nucleated RBC % Seg Neutrophils # Seg Neutrophils # Man Lymphocytes # (Manual) 0.4 L Monocytes # (Manual) Eosinophils # (Manual) 0.6 H PT INR Fibrinogen dRVVT Confirm Interp Factor V Activity POC ABG pH POC ABG pCO2 POC ABG pO2 Sodium Potassium Chloride 97.0 L Carbon Dioxide 19 L BUN 43 H Creatinine 2.6 H Glucose 130 H POC Glucose Lactic Acid 4.40 H* Calcium 6.7 L Phosphorus Magnesium Direct Bilirubin AST ALT Alkaline Phosphatase Troponin T C-Reactive Protein Total Protein Albumin Prealbumin Triglycerides Cholesterol LDL Cholesterol Direct HDL Cholesterol Urine pH Urine WBC (Auto) Urine Creatinine Urine Total Protein Vancomycin Trough Rheumatoid Factor Complement C4 Miscellaneous Test Crossmatch 09/26/16 09/26/16 09/26/16 05:20 11:44 12:12 WBC RBC Hgb Hct MCV MCH MCHC RDW Plt Count Lymph % (Auto) [place] % (Auto) Lymph # [place] # Baso # Seg Neutrophils % Seg Neuts % (Manual) Lymphocytes % (Manual) Monocytes % (Manual) Eosinophils % (Manual) Basophils % (Manual) Nucleated RBC % Seg Neutrophils # Seg Neutrophils # Man Lymphocytes # (Manual) Monocytes # (Manual) Eosinophils # (Manual) PT INR Fibrinogen dRVVT Confirm Interp Factor V Activity POC ABG pH POC ABG pCO2 27.0 L POC ABG pO2 69 L Sodium Potassium Chloride Carbon Dioxide BUN Creatinine Glucose POC Glucose 121 H 128 H Lactic Acid Calcium Phosphorus Magnesium Direct Bilirubin AST ALT Alkaline Phosphatase Troponin T C-Reactive Protein Total Protein Albumin Prealbumin Triglycerides Cholesterol LDL Cholesterol Direct HDL Cholesterol Urine pH Urine WBC (Auto) Urine Creatinine Urine Total Protein Vancomycin Trough Rheumatoid Factor Complement C4 Miscellaneous Test Crossmatch 09/26/16 09/26/16 09/27/16 18:31 23:40 08:20 WBC RBC Hgb Hct MCV MCH MCHC RDW Plt Count Lymph % (Auto) [place] % (Auto) Lymph # [place] # Baso # Seg Neutrophils % Seg Neuts % (Manual) Lymphocytes % (Manual) Monocytes % (Manual) Eosinophils % (Manual) Basophils % (Manual) Nucleated RBC % Seg Neutrophils # Seg Neutrophils # Man Lymphocytes # (Manual) Monocytes # (Manual) Eosinophils # (Manual) PT INR Fibrinogen dRVVT Confirm Interp Factor V Activity POC ABG pH POC ABG pCO2 POC ABG pO2 Sodium Potassium Chloride Carbon Dioxide BUN Creatinine Glucose POC Glucose 120 H 133 H Lactic Acid 4.10 H* Calcium Phosphorus Magnesium Direct Bilirubin AST ALT Alkaline Phosphatase Troponin T C-Reactive Protein Total Protein Albumin Prealbumin Triglycerides Cholesterol LDL Cholesterol Direct HDL Cholesterol Urine pH Urine WBC (Auto) Urine Creatinine Urine Total Protein Vancomycin Trough Rheumatoid Factor Complement C4 Miscellaneous Test Crossmatch 09/27/16 09/27/16 09/27/16 11:23 15:00 18:15 WBC RBC Hgb Hct MCV MCH MCHC RDW Plt Count Lymph % (Auto) [place] % (Auto) Lymph # [place] # Baso # Seg Neutrophils % Seg Neuts % (Manual) Lymphocytes % (Manual) Monocytes % (Manual) Eosinophils % (Manual) Basophils % (Manual) Nucleated RBC % Seg Neutrophils # Seg Neutrophils # Man Lymphocytes # (Manual) Monocytes # (Manual) Eosinophils # (Manual) PT INR Fibrinogen dRVVT Confirm Interp Factor V Activity POC ABG pH 7.459 H POC ABG pCO2 27.1 L POC ABG pO2 140 H Sodium Potassium Chloride Carbon Dioxide BUN Creatinine Glucose POC Glucose 114 H 127 H Lactic Acid Calcium Phosphorus Magnesium Direct Bilirubin AST ALT Alkaline Phosphatase Troponin T C-Reactive Protein Total Protein Albumin Prealbumin Triglycerides Cholesterol LDL Cholesterol Direct HDL Cholesterol Urine pH Urine WBC (Auto) Urine Creatinine Urine Total Protein Vancomycin Trough Rheumatoid Factor Complement C4 Miscellaneous Test Crossmatch 09/27/16 09/27/16 09/28/16 Unknown Unknown 03:45 WBC RBC 2.49 L Hgb 6.8 L Hct 20.7 L MCV MCH 27 L MCHC RDW 22.1 H Plt Count Lymph % (Auto) [place] % (Auto) Lymph # [place] # Baso # Seg Neutrophils % Seg Neuts % (Manual) 32.0 L Lymphocytes % (Manual) 12.0 L Monocytes % (Manual) 11.0 H Eosinophils % (Manual) 10.0 H Basophils % (Manual) Nucleated RBC % Seg Neutrophils # Seg Neutrophils # Man Lymphocytes # (Manual) 1.0 L Monocytes # (Manual) 0.9 H Eosinophils # (Manual) 0.8 H PT INR Fibrinogen dRVVT Confirm Interp Factor V Activity POC ABG pH POC ABG pCO2 POC ABG pO2 Sodium 135 L 135 L Potassium 3.5 L Chloride 93.6 L 94.4 L Carbon Dioxide 17 L 21 L BUN 45 H 28 H Creatinine 3.3 H 2.5 H Glucose 106 H POC Glucose Lactic Acid Calcium 7.3 L 7.1 L Phosphorus Magnesium Direct Bilirubin AST ALT Alkaline Phosphatase Troponin T C-Reactive Protein Total Protein Albumin Prealbumin Triglycerides Cholesterol LDL Cholesterol Direct HDL Cholesterol Urine pH Urine WBC (Auto) Urine Creatinine Urine Total Protein Vancomycin Trough Rheumatoid Factor Complement C4 Miscellaneous Test Crossmatch 09/28/16 09/28/16 09/28/16 03:45 07:25 11:58 WBC 13.3 H RBC 3.01 L Hgb 8.4 L Hct 25.0 L MCV MCH MCHC RDW 20.5 H Plt Count 128 L Lymph % (Auto) [place] % (Auto) Lymph # [place] # Baso # Seg Neutrophils % Seg Neuts % (Manual) Lymphocytes % (Manual) 7.0 L Monocytes % (Manual) Eosinophils % (Manual) 6.0 H Basophils % (Manual) Nucleated RBC % Seg Neutrophils # Seg Neutrophils # Man Lymphocytes # (Manual) 0.9 L Monocytes # (Manual) Eosinophils # (Manual) 0.8 H PT INR Fibrinogen dRVVT Confirm Interp Factor V Activity POC ABG pH POC ABG pCO2 POC ABG pO2 Sodium Potassium Chloride Carbon Dioxide BUN Creatinine Glucose POC Glucose 121 H Lactic Acid 4.50 H* Calcium Phosphorus Magnesium Direct Bilirubin AST ALT Alkaline Phosphatase Troponin T C-Reactive Protein Total Protein Albumin Prealbumin Triglycerides Cholesterol LDL Cholesterol Direct HDL Cholesterol Urine pH Urine WBC (Auto) Urine Creatinine Urine Total Protein Vancomycin Trough Rheumatoid Factor Complement C4 Miscellaneous Test Crossmatch 09/29/16 09/29/16 09/29/16 06:45 06:45 06:45 WBC 14.9 H RBC 2.74 L Hgb 7.6 L Hct 23.2 L MCV MCH MCHC RDW 20.5 H Plt Count 81 L Lymph % (Auto) [place] % (Auto) Lymph # [place] # Baso # Seg Neutrophils % Seg Neuts % (Manual) 81.0 H Lymphocytes % (Manual) 4.0 L Monocytes % (Manual) Eosinophils % (Manual) Basophils % (Manual) Nucleated RBC % Seg Neutrophils # Seg Neutrophils # Man 12.1 H Lymphocytes # (Manual) 0.6 L Monocytes # (Manual) Eosinophils # (Manual) PT INR Fibrinogen dRVVT Confirm Interp Factor V Activity POC ABG pH POC ABG pCO2 POC ABG pO2 Sodium 133 L Potassium 3.4 L Chloride 92.5 L Carbon Dioxide 21 L BUN 33 H Creatinine 3.0 H Glucose POC Glucose Lactic Acid Calcium 6.6 L Phosphorus Magnesium 1.40 L Direct Bilirubin 0.9 H AST ALT Alkaline Phosphatase Troponin T C-Reactive Protein Total Protein 4.3 L Albumin 1.3 L Prealbumin Triglycerides Cholesterol LDL Cholesterol Direct HDL Cholesterol Urine pH Urine WBC (Auto) Urine Creatinine Urine Total Protein Vancomycin Trough Rheumatoid Factor Complement C4 Miscellaneous Test Crossmatch 09/29/16 09/29/16 09/30/16 17:52 20:12 00:07 WBC RBC Hgb Hct MCV MCH MCHC RDW Plt Count Lymph % (Auto) [place] % (Auto) Lymph # [place] # Baso # Seg Neutrophils % Seg Neuts % (Manual) Lymphocytes % (Manual) Monocytes % (Manual) Eosinophils % (Manual) Basophils % (Manual) Nucleated RBC % Seg Neutrophils # Seg Neutrophils # Man Lymphocytes # (Manual) Monocytes # (Manual) Eosinophils # (Manual) PT INR Fibrinogen dRVVT Confirm Interp Factor V Activity POC ABG pH POC ABG pCO2 POC ABG pO2 Sodium Potassium Chloride Carbon Dioxide BUN Creatinine Glucose POC Glucose 50 L 51 L Lactic Acid Calcium Phosphorus Magnesium Direct Bilirubin AST ALT Alkaline Phosphatase Troponin T 0.204 H* C-Reactive Protein Total Protein Albumin Prealbumin Triglycerides Cholesterol 31 L LDL Cholesterol Direct 4 L HDL Cholesterol 3 L Urine pH Urine WBC (Auto) Urine Creatinine Urine Total Protein Vancomycin Trough Rheumatoid Factor Complement C4 Miscellaneous Test Crossmatch 09/30/16 09/30/16 09/30/16 01:30 05:15 06:10 WBC RBC Hgb Hct MCV MCH MCHC RDW Plt Count Lymph % (Auto) [place] % (Auto) Lymph # [place] # Baso # Seg Neutrophils % Seg Neuts % (Manual) Lymphocytes % (Manual) Monocytes % (Manual) Eosinophils % (Manual) Basophils % (Manual) Nucleated RBC % Seg Neutrophils # Seg Neutrophils # Man Lymphocytes # (Manual) Monocytes # (Manual) Eosinophils # (Manual) PT INR Fibrinogen dRVVT Confirm Interp Factor V Activity POC ABG pH POC ABG pCO2 POC ABG pO2 Sodium 133 L Potassium 3.2 L Chloride 93.2 L Carbon Dioxide 19 L BUN 36 H Creatinine 3.2 H Glucose 104 H POC Glucose 167 H 146 H Lactic Acid Calcium 6.4 L Phosphorus Magnesium 1.60 L Direct Bilirubin AST ALT Alkaline Phosphatase Troponin T C-Reactive Protein Total Protein Albumin Prealbumin Triglycerides Cholesterol LDL Cholesterol Direct HDL Cholesterol Urine pH Urine WBC (Auto) Urine Creatinine Urine Total Protein Vancomycin Trough Rheumatoid Factor Complement C4 Miscellaneous Test Crossmatch 09/30/16 09/30/16 09/30/16 11:26 13:39 18:38 WBC RBC Hgb Hct MCV MCH MCHC RDW Plt Count Lymph % (Auto) [place] % (Auto) Lymph # [place] # Baso # Seg Neutrophils % Seg Neuts % (Manual) Lymphocytes % (Manual) Monocytes % (Manual) Eosinophils % (Manual) Basophils % (Manual) Nucleated RBC % Seg Neutrophils # Seg Neutrophils # Man Lymphocytes # (Manual) Monocytes # (Manual) Eosinophils # (Manual) PT INR Fibrinogen dRVVT Confirm Interp Factor V Activity POC ABG pH 7.479 H POC ABG pCO2 29.8 L POC ABG pO2 117 H Sodium Potassium Chloride Carbon Dioxide BUN Creatinine Glucose POC Glucose 140 H 122 H Lactic Acid Calcium Phosphorus Magnesium Direct Bilirubin AST ALT Alkaline Phosphatase Troponin T C-Reactive Protein Total Protein Albumin Prealbumin Triglycerides Cholesterol LDL Cholesterol Direct HDL Cholesterol Urine pH Urine WBC (Auto) Urine Creatinine Urine Total Protein Vancomycin Trough Rheumatoid Factor Complement C4 Miscellaneous Test Crossmatch 10/01/16 10/01/16 10/01/16 06:00 06:00 12:37 WBC 12.6 H RBC 2.75 L Hgb 7.3 L Hct 23.3 L MCV MCH 27 L MCHC RDW 20.6 H Plt Count 72 L Lymph % (Auto) [place] % (Auto) Lymph # [place] # Baso # Seg Neutrophils % Seg Neuts % (Manual) 31.0 L Lymphocytes % (Manual) 8.0 L Monocytes % (Manual) Eosinophils % (Manual) Basophils % (Manual) Nucleated RBC % 3.0 H Seg Neutrophils # Seg Neutrophils # Man Lymphocytes # (Manual) 1.0 L Monocytes # (Manual) Eosinophils # (Manual) PT INR Fibrinogen dRVVT Confirm Interp Factor V Activity POC ABG pH POC ABG pCO2 POC ABG pO2 Sodium 127 L Potassium Chloride 86.8 L Carbon Dioxide 20 L BUN 42 H Creatinine 3.5 H Glucose POC Glucose 65 L Lactic Acid Calcium 7.0 L Phosphorus Magnesium Direct Bilirubin AST ALT Alkaline Phosphatase Troponin T C-Reactive Protein Total Protein Albumin Prealbumin Triglycerides Cholesterol LDL Cholesterol Direct HDL Cholesterol Urine pH Urine WBC (Auto) Urine Creatinine Urine Total Protein Vancomycin Trough Rheumatoid Factor Complement C4 Miscellaneous Test Crossmatch 10/01/16 10/01/16 10/02/16 17:39 23:32 00:59 WBC RBC Hgb Hct MCV MCH MCHC RDW Plt Count Lymph % (Auto) [place] % (Auto) Lymph # [place] # Baso # Seg Neutrophils % Seg Neuts % (Manual) Lymphocytes % (Manual) Monocytes % (Manual) Eosinophils % (Manual) Basophils % (Manual) Nucleated RBC % Seg Neutrophils # Seg Neutrophils # Man Lymphocytes # (Manual) Monocytes # (Manual) Eosinophils # (Manual) PT INR Fibrinogen dRVVT Confirm Interp Factor V Activity POC ABG pH POC ABG pCO2 POC ABG pO2 Sodium Potassium Chloride Carbon Dioxide BUN Creatinine Glucose POC Glucose 107 H 52 L 145 H Lactic Acid Calcium Phosphorus Magnesium Direct Bilirubin AST ALT Alkaline Phosphatase Troponin T C-Reactive Protein Total Protein Albumin Prealbumin Triglycerides Cholesterol LDL Cholesterol Direct HDL Cholesterol Urine pH Urine WBC (Auto) Urine Creatinine Urine Total Protein Vancomycin Trough Rheumatoid Factor Complement C4 Miscellaneous Test Crossmatch 10/02/16 10/02/16 10/02/16 10:30 10:50 10:50 WBC 14.7 H RBC 2.76 L Hgb 7.4 L Hct 23.6 L MCV MCH 27 L MCHC RDW 20.2 H Plt Count 79 L Lymph % (Auto) [place] % (Auto) Lymph # [place] # Baso # Seg Neutrophils % Seg Neuts % (Manual) 86.0 H Lymphocytes % (Manual) 6.0 L Monocytes % (Manual) Eosinophils % (Manual) Basophils % (Manual) Nucleated RBC % Seg Neutrophils # Seg Neutrophils # Man 12.6 H Lymphocytes # (Manual) 0.9 L Monocytes # (Manual) Eosinophils # (Manual) PT INR Fibrinogen dRVVT Confirm Interp Factor V Activity POC ABG pH 7.486 H POC ABG pCO2 30.1 L POC ABG pO2 108 H Sodium 131 L Potassium 3.4 L Chloride 89.9 L Carbon Dioxide BUN 26 H Creatinine 2.6 H Glucose POC Glucose Lactic Acid Calcium 7.0 L Phosphorus Magnesium Direct Bilirubin AST ALT Alkaline Phosphatase Troponin T C-Reactive Protein Total Protein Albumin Prealbumin Triglycerides Cholesterol LDL Cholesterol Direct HDL Cholesterol Urine pH Urine WBC (Auto) Urine Creatinine Urine Total Protein Vancomycin Trough Rheumatoid Factor Complement C4 Miscellaneous Test Crossmatch 10/02/16 10/03/16 10/03/16 23:45 00:45 05:10 WBC 12.9 H RBC 2.77 L Hgb 7.6 L Hct 23.7 L MCV MCH 27 L MCHC RDW 19.7 H Plt Count 89 L Lymph % (Auto) [place] % (Auto) Lymph # [place] # Baso # Seg Neutrophils % Seg Neuts % (Manual) Lymphocytes % (Manual) 8.0 L Monocytes % (Manual) Eosinophils % (Manual) Basophils % (Manual) Nucleated RBC % Seg Neutrophils # 11.9 H Seg Neutrophils # Man Lymphocytes # (Manual) 1.0 L Monocytes # (Manual) Eosinophils # (Manual) PT INR Fibrinogen dRVVT Confirm Interp Factor V Activity POC ABG pH POC ABG pCO2 POC ABG pO2 Sodium Potassium Chloride Carbon Dioxide BUN Creatinine Glucose POC Glucose 55 L 199 H Lactic Acid Calcium Phosphorus Magnesium Direct Bilirubin AST ALT Alkaline Phosphatase Troponin T C-Reactive Protein Total Protein Albumin Prealbumin Triglycerides Cholesterol LDL Cholesterol Direct HDL Cholesterol Urine pH Urine WBC (Auto) Urine Creatinine Urine Total Protein Vancomycin Trough Rheumatoid Factor Complement C4 Miscellaneous Test Crossmatch 10/03/16 10/03/16 10/03/16 05:10 12:14 13:18 WBC RBC Hgb Hct MCV MCH MCHC RDW Plt Count Lymph % (Auto) [place] % (Auto) Lymph # [place] # Baso # Seg Neutrophils % Seg Neuts % (Manual) Lymphocytes % (Manual) Monocytes % (Manual) Eosinophils % (Manual) Basophils % (Manual) Nucleated RBC % Seg Neutrophils # Seg Neutrophils # Man Lymphocytes # (Manual) Monocytes # (Manual) Eosinophils # (Manual) PT INR Fibrinogen dRVVT Confirm Interp Factor V Activity POC ABG pH POC ABG pCO2 POC ABG pO2 Sodium 129 L Potassium 3.3 L Chloride 88.8 L Carbon Dioxide 20 L BUN 29 H Creatinine 2.8 H Glucose POC Glucose 68 L 127 H Lactic Acid Calcium 7.2 L Phosphorus Magnesium Direct Bilirubin AST ALT Alkaline Phosphatase Troponin T C-Reactive Protein Total Protein Albumin Prealbumin Triglycerides Cholesterol LDL Cholesterol Direct HDL Cholesterol Urine pH Urine WBC (Auto) Urine Creatinine Urine Total Protein Vancomycin Trough Rheumatoid Factor Complement C4 Miscellaneous Test Crossmatch 10/03/16 10/03/16 10/03/16 14:42 18:21 19:09 WBC RBC Hgb Hct MCV MCH MCHC RDW Plt Count Lymph % (Auto) [place] % (Auto) Lymph # [place] # Baso # Seg Neutrophils % Seg Neuts % (Manual) Lymphocytes % (Manual) Monocytes % (Manual) Eosinophils % (Manual) Basophils % (Manual) Nucleated RBC % Seg Neutrophils # Seg Neutrophils # Man Lymphocytes # (Manual) Monocytes # (Manual) Eosinophils # (Manual) PT INR Fibrinogen dRVVT Confirm Interp Factor V Activity POC ABG pH 7.499 H POC ABG pCO2 28.4 L POC ABG pO2 44 L Sodium Potassium Chloride Carbon Dioxide BUN Creatinine Glucose POC Glucose 64 L 205 H Lactic Acid Calcium Phosphorus Magnesium Direct Bilirubin AST ALT Alkaline Phosphatase Troponin T C-Reactive Protein Total Protein Albumin Prealbumin Triglycerides Cholesterol LDL Cholesterol Direct HDL Cholesterol Urine pH Urine WBC (Auto) Urine Creatinine Urine Total Protein Vancomycin Trough Rheumatoid Factor Complement C4 Miscellaneous Test Crossmatch 10/03/16 10/04/16 10/04/16 23:33 04:18 06:30 WBC RBC 2.54 L Hgb 7.1 L Hct 21.7 L MCV MCH MCHC RDW 19.5 H Plt Count 76 L Lymph % (Auto) [place] % (Auto) Lymph # [place] # Baso # Seg Neutrophils % Seg Neuts % (Manual) 88.0 H Lymphocytes % (Manual) 6.0 L Monocytes % (Manual) Eosinophils % (Manual) Basophils % (Manual) Nucleated RBC % Seg Neutrophils # Seg Neutrophils # Man 8.8 H Lymphocytes # (Manual) 0.6 L Monocytes # (Manual) Eosinophils # (Manual) PT INR Fibrinogen dRVVT Confirm Interp Factor V Activity POC ABG pH 7.461 H POC ABG pCO2 33.6 L POC ABG pO2 211 H Sodium Potassium Chloride Carbon Dioxide BUN Creatinine Glucose POC Glucose 136 H Lactic Acid Calcium Phosphorus Magnesium Direct Bilirubin AST ALT Alkaline Phosphatase Troponin T C-Reactive Protein Total Protein Albumin Prealbumin Triglycerides Cholesterol LDL Cholesterol Direct HDL Cholesterol Urine pH Urine WBC (Auto) Urine Creatinine Urine Total Protein Vancomycin Trough Rheumatoid Factor Complement C4 Miscellaneous Test Crossmatch 10/04/16 10/04/16 10/04/16 06:30 11:45 17:54 WBC RBC Hgb Hct MCV MCH MCHC RDW Plt Count Lymph % (Auto) [place] % (Auto) Lymph # [place] # Baso # Seg Neutrophils % Seg Neuts % (Manual) Lymphocytes % (Manual) Monocytes % (Manual) Eosinophils % (Manual) Basophils % (Manual) Nucleated RBC % Seg Neutrophils # Seg Neutrophils # Man Lymphocytes # (Manual) Monocytes # (Manual) Eosinophils # (Manual) PT INR Fibrinogen dRVVT Confirm Interp Factor V Activity POC ABG pH POC ABG pCO2 POC ABG pO2 Sodium 128 L Potassium Chloride 87.4 L Carbon Dioxide 20 L BUN 34 H Creatinine 2.9 H Glucose 127 H POC Glucose 158 H 160 H Lactic Acid Calcium 7.4 L Phosphorus Magnesium Direct Bilirubin AST ALT Alkaline Phosphatase Troponin T C-Reactive Protein Total Protein Albumin Prealbumin Triglycerides Cholesterol LDL Cholesterol Direct HDL Cholesterol Urine pH Urine WBC (Auto) Urine Creatinine Urine Total Protein Vancomycin Trough Rheumatoid Factor Complement C4 Miscellaneous Test Crossmatch 10/04/16 10/05/16 10/05/16 23:25 04:30 05:00 WBC RBC 2.64 L Hgb 7.5 L Hct 22.6 L MCV MCH MCHC RDW 19.3 H Plt Count 80 L Lymph % (Auto) [place] % (Auto) Lymph # [place] # Baso # Seg Neutrophils % Seg Neuts % (Manual) Lymphocytes % (Manual) 12.0 L Monocytes % (Manual) Eosinophils % (Manual) Basophils % (Manual) Nucleated RBC % Seg Neutrophils # Seg Neutrophils # Man Lymphocytes # (Manual) Monocytes # (Manual) Eosinophils # (Manual) PT INR Fibrinogen dRVVT Confirm Interp Factor V Activity POC ABG pH 7.475 H POC ABG pCO2 33.3 L POC ABG pO2 140 H Sodium Potassium Chloride Carbon Dioxide BUN Creatinine Glucose POC Glucose 141 H Lactic Acid Calcium Phosphorus Magnesium Direct Bilirubin AST ALT Alkaline Phosphatase Troponin T C-Reactive Protein Total Protein Albumin Prealbumin Triglycerides Cholesterol LDL Cholesterol Direct HDL Cholesterol Urine pH Urine WBC (Auto) Urine Creatinine Urine Total Protein Vancomycin Trough Rheumatoid Factor Complement C4 Miscellaneous Test Crossmatch 10/05/16 10/05/16 10/05/16 05:00 05:09 12:58 WBC RBC Hgb Hct MCV MCH MCHC RDW Plt Count Lymph % (Auto) [place] % (Auto) Lymph # [place] # Baso # Seg Neutrophils % Seg Neuts % (Manual) Lymphocytes % (Manual) Monocytes % (Manual) Eosinophils % (Manual) Basophils % (Manual) Nucleated RBC % Seg Neutrophils # Seg Neutrophils # Man Lymphocytes # (Manual) Monocytes # (Manual) Eosinophils # (Manual) PT INR Fibrinogen dRVVT Confirm Interp Factor V Activity POC ABG pH POC ABG pCO2 POC ABG pO2 Sodium 131 L Potassium Chloride 94.0 L Carbon Dioxide 20 L BUN 22 H Creatinine 2.0 H Glucose 123 H POC Glucose 166 H 179 H Lactic Acid Calcium 7.7 L Phosphorus 2.20 L D Magnesium Direct Bilirubin AST ALT Alkaline Phosphatase Troponin T C-Reactive Protein Total Protein Albumin Prealbumin Triglycerides Cholesterol LDL Cholesterol Direct HDL Cholesterol Urine pH Urine WBC (Auto) Urine Creatinine Urine Total Protein Vancomycin Trough Rheumatoid Factor Complement C4 Miscellaneous Test Crossmatch 10/05/16 10/05/16 10/05/16 15:50 18:53 23:12 WBC RBC Hgb Hct MCV MCH MCHC RDW Plt Count Lymph % (Auto) [place] % (Auto) Lymph # [place] # Baso # Seg Neutrophils % Seg Neuts % (Manual) Lymphocytes % (Manual) Monocytes % (Manual) Eosinophils % (Manual) Basophils % (Manual) Nucleated RBC % Seg Neutrophils # Seg Neutrophils # Man Lymphocytes # (Manual) Monocytes # (Manual) Eosinophils # (Manual) PT INR Fibrinogen dRVVT Confirm Interp Factor V Activity POC ABG pH POC ABG pCO2 POC ABG pO2 Sodium Potassium Chloride Carbon Dioxide BUN Creatinine Glucose POC Glucose 150 H 164 H Lactic Acid Calcium Phosphorus Magnesium Direct Bilirubin AST ALT Alkaline Phosphatase Troponin T C-Reactive Protein Total Protein Albumin Prealbumin Triglycerides Cholesterol LDL Cholesterol Direct HDL Cholesterol Urine pH Urine WBC (Auto) Urine Creatinine Urine Total Protein Vancomycin Trough Rheumatoid Factor Complement C4 Miscellaneous Test Crossmatch See Detail 10/06/16 10/06/16 10/06/16 03:50 03:50 04:53 WBC RBC 3.00 L Hgb 8.6 L Hct 25.8 L MCV MCH MCHC RDW 17.9 H Plt Count 65 L Lymph % (Auto) [place] % (Auto) Lymph # [place] # Baso # Seg Neutrophils % Seg Neuts % (Manual) 30.0 L Lymphocytes % (Manual) 5.0 L Monocytes % (Manual) Eosinophils % (Manual) Basophils % (Manual) Nucleated RBC % Seg Neutrophils # Seg Neutrophils # Man Lymphocytes # (Manual) 0.4 L Monocytes # (Manual) Eosinophils # (Manual) PT INR Fibrinogen dRVVT Confirm Interp Factor V Activity POC ABG pH 7.310 L POC ABG pCO2 49.0 H POC ABG pO2 Sodium 133 L Potassium Chloride 95.9 L Carbon Dioxide BUN 26 H Creatinine 2.0 H Glucose 116 H POC Glucose Lactic Acid Calcium 7.8 L Phosphorus Magnesium Direct Bilirubin AST ALT Alkaline Phosphatase Troponin T C-Reactive Protein Total Protein Albumin Prealbumin Triglycerides Cholesterol LDL Cholesterol Direct HDL Cholesterol Urine pH Urine WBC (Auto) Urine Creatinine Urine Total Protein Vancomycin Trough Rheumatoid Factor Complement C4 Miscellaneous Test Crossmatch 10/06/16 10/06/16 10/06/16 05:23 11:52 18:34 WBC RBC Hgb Hct MCV MCH MCHC RDW Plt Count Lymph % (Auto) [place] % (Auto) Lymph # [place] # Baso # Seg Neutrophils % Seg Neuts % (Manual) Lymphocytes % (Manual) Monocytes % (Manual) Eosinophils % (Manual) Basophils % (Manual) Nucleated RBC % Seg Neutrophils # Seg Neutrophils # Man Lymphocytes # (Manual) Monocytes # (Manual) Eosinophils # (Manual) PT INR Fibrinogen dRVVT Confirm Interp Factor V Activity POC ABG pH POC ABG pCO2 POC ABG pO2 Sodium Potassium Chloride Carbon Dioxide BUN Creatinine Glucose POC Glucose 126 H 116 H 129 H Lactic Acid Calcium Phosphorus Magnesium Direct Bilirubin AST ALT Alkaline Phosphatase Troponin T C-Reactive Protein Total Protein Albumin Prealbumin Triglycerides Cholesterol LDL Cholesterol Direct HDL Cholesterol Urine pH Urine WBC (Auto) Urine Creatinine Urine Total Protein Vancomycin Trough Rheumatoid Factor Complement C4 Miscellaneous Test Crossmatch 10/07/16 10/07/16 10/07/16 03:45 05:00 10:00 WBC 17.0 H RBC 2.68 L Hgb 7.3 L Hct 25.3 L MCV MCH 27 L MCHC 29 L RDW 19.6 H Plt Count 74 L Lymph % (Auto) [place] % (Auto) Lymph # [place] # Baso # Seg Neutrophils % Seg Neuts % (Manual) Lymphocytes % (Manual) 12.0 L Monocytes % (Manual) Eosinophils % (Manual) Basophils % (Manual) Nucleated RBC % 4.0 H Seg Neutrophils # Seg Neutrophils # Man 10.7 H Lymphocytes # (Manual) Monocytes # (Manual) Eosinophils # (Manual) PT INR Fibrinogen dRVVT Confirm Interp Factor V Activity POC ABG pH POC ABG pCO2 POC ABG pO2 Sodium 130 L Potassium 3.2 L Chloride 93.9 L Carbon Dioxide 20 L BUN 44 H Creatinine 2.7 H Glucose 129 H POC Glucose Lactic Acid Calcium 7.4 L Phosphorus Magnesium Direct Bilirubin AST ALT 6 L Alkaline Phosphatase 195 H Troponin T C-Reactive Protein Total Protein 4.9 L Albumin 1.0 L Prealbumin Triglycerides Cholesterol LDL Cholesterol Direct HDL Cholesterol Urine pH Urine WBC (Auto) Urine Creatinine Urine Total Protein Vancomycin Trough Rheumatoid Factor Complement C4 Miscellaneous Test Flexitest 1 H Crossmatch 10/07/16 10/07/16 10/07/16 10:00 11:24 18:10 WBC RBC Hgb Hct MCV MCH MCHC RDW Plt Count Lymph % (Auto) [place] % (Auto) Lymph # [place] # Baso # Seg Neutrophils % Seg Neuts % (Manual) Lymphocytes % (Manual) Monocytes % (Manual) Eosinophils % (Manual) Basophils % (Manual) Nucleated RBC % Seg Neutrophils # Seg Neutrophils # Man Lymphocytes # (Manual) Monocytes # (Manual) Eosinophils # (Manual) PT INR Fibrinogen dRVVT Confirm Interp Factor V Activity POC ABG pH POC ABG pCO2 POC ABG pO2 Sodium Potassium Chloride Carbon Dioxide BUN Creatinine Glucose POC Glucose 116 H 130 H Lactic Acid Calcium Phosphorus Magnesium Direct Bilirubin AST ALT Alkaline Phosphatase Troponin T C-Reactive Protein 19.40 H Total Protein Albumin Prealbumin Triglycerides Cholesterol LDL Cholesterol Direct HDL Cholesterol Urine pH Urine WBC (Auto) Urine Creatinine Urine Total Protein Vancomycin Trough Rheumatoid Factor Complement C4 Miscellaneous Test Crossmatch 10/07/16 10/08/16 10/08/16 18:30 00:00 04:00 WBC RBC Hgb Hct MCV MCH MCHC RDW Plt Count Lymph % (Auto) [place] % (Auto) Lymph # [place] # Baso # Seg Neutrophils % Seg Neuts % (Manual) Lymphocytes % (Manual) Monocytes % (Manual) Eosinophils % (Manual) Basophils % (Manual) Nucleated RBC % Seg Neutrophils # Seg Neutrophils # Man Lymphocytes # (Manual) Monocytes # (Manual) Eosinophils # (Manual) PT INR Fibrinogen dRVVT Confirm Interp Factor V Activity POC ABG pH POC ABG pCO2 POC ABG pO2 Sodium 132 L Potassium 3.3 L Chloride 93.6 L Carbon Dioxide 17 L BUN 59 H Creatinine 2.7 H Glucose 121 H POC Glucose 122 H Lactic Acid Calcium 7.6 L Phosphorus Magnesium Direct Bilirubin AST ALT Alkaline Phosphatase Troponin T C-Reactive Protein Total Protein Albumin Prealbumin Triglycerides Cholesterol LDL Cholesterol Direct HDL Cholesterol Urine pH Urine WBC (Auto) > 182.0 H Urine Creatinine Urine Total Protein Vancomycin Trough Rheumatoid Factor Complement C4 Miscellaneous Test Crossmatch 10/08/16 10/08/16 10/08/16 04:30 05:30 11:51 WBC RBC 5.15 H Hgb 14.4 H D Hct 44.5 H D MCV MCH MCHC RDW 19.5 H Plt Count 56 L Lymph % (Auto) [place] % (Auto) Lymph # [place] # Baso # Seg Neutrophils % Seg Neuts % (Manual) 24.0 L Lymphocytes % (Manual) 8.0 L Monocytes % (Manual) Eosinophils % (Manual) Basophils % (Manual) Nucleated RBC % 9.0 H Seg Neutrophils # Seg Neutrophils # Man Lymphocytes # (Manual) 0.7 L Monocytes # (Manual) Eosinophils # (Manual) PT INR Fibrinogen dRVVT Confirm Interp Factor V Activity POC ABG pH POC ABG pCO2 POC ABG pO2 Sodium Potassium Chloride Carbon Dioxide BUN Creatinine Glucose POC Glucose 125 H 150 H Lactic Acid Calcium Phosphorus Magnesium Direct Bilirubin AST ALT Alkaline Phosphatase Troponin T C-Reactive Protein Total Protein Albumin Prealbumin Triglycerides Cholesterol LDL Cholesterol Direct HDL Cholesterol Urine pH Urine WBC (Auto) Urine Creatinine Urine Total Protein Vancomycin Trough Rheumatoid Factor Complement C4 Miscellaneous Test Crossmatch 10/08/16 10/08/16 10/08/16 12:49 17:07 19:30 WBC RBC Hgb 7.1 L D Hct 22.4 L D MCV MCH MCHC RDW Plt Count Lymph % (Auto) [place] % (Auto) Lymph # [place] # Baso # Seg Neutrophils % Seg Neuts % (Manual) Lymphocytes % (Manual) Monocytes % (Manual) Eosinophils % (Manual) Basophils % (Manual) Nucleated RBC % Seg Neutrophils # Seg Neutrophils # Man Lymphocytes # (Manual) Monocytes # (Manual) Eosinophils # (Manual) PT INR Fibrinogen dRVVT Confirm Interp Factor V Activity POC ABG pH POC ABG pCO2 28.2 L POC ABG pO2 111 H Sodium Potassium Chloride Carbon Dioxide BUN Creatinine Glucose POC Glucose 145 H Lactic Acid Calcium Phosphorus Magnesium Direct Bilirubin AST ALT Alkaline Phosphatase Troponin T C-Reactive Protein Total Protein Albumin Prealbumin Triglycerides Cholesterol LDL Cholesterol Direct HDL Cholesterol Urine pH Urine WBC (Auto) Urine Creatinine Urine Total Protein Vancomycin Trough Rheumatoid Factor Complement C4 Miscellaneous Test Crossmatch 10/08/16 10/09/16 10/09/16 19:30 03:45 03:45 WBC 12.6 H RBC 2.36 L Hgb 6.7 L Hct 21.1 L MCV MCH MCHC RDW 19.5 H Plt Count 75 L Lymph % (Auto) [place] % (Auto) Lymph # [place] # Baso # Seg Neutrophils % Seg Neuts % (Manual) Lymphocytes % (Manual) Monocytes % (Manual) 10.0 H Eosinophils % (Manual) Basophils % (Manual) Nucleated RBC % 3.0 H Seg Neutrophils # Seg Neutrophils # Man Lymphocytes # (Manual) Monocytes # (Manual) 1.3 H Eosinophils # (Manual) PT 18.0 H INR 1.41 H Fibrinogen dRVVT Confirm Interp Factor V Activity POC ABG pH POC ABG pCO2 POC ABG pO2 Sodium 135 L Potassium Chloride Carbon Dioxide 17 L BUN 81 H Creatinine 3.2 H Glucose 109 H POC Glucose Lactic Acid Calcium 7.4 L Phosphorus 4.60 H D Magnesium Direct Bilirubin AST ALT Alkaline Phosphatase Troponin T C-Reactive Protein Total Protein Albumin Prealbumin Triglycerides Cholesterol LDL Cholesterol Direct HDL Cholesterol Urine pH Urine WBC (Auto) Urine Creatinine Urine Total Protein Vancomycin Trough Rheumatoid Factor Complement C4 Miscellaneous Test Crossmatch 10/09/16 10/09/16 10/09/16 03:45 05:14 07:20 WBC RBC Hgb Hct MCV MCH MCHC RDW Plt Count Lymph % (Auto) [place] % (Auto) Lymph # [place] # Baso # Seg Neutrophils % Seg Neuts % (Manual) Lymphocytes % (Manual) Monocytes % (Manual) Eosinophils % (Manual) Basophils % (Manual) Nucleated RBC % Seg Neutrophils # Seg Neutrophils # Man Lymphocytes # (Manual) Monocytes # (Manual) Eosinophils # (Manual) PT 19.0 H INR 1.51 H Fibrinogen dRVVT Confirm Interp Factor V Activity POC ABG pH POC ABG pCO2 POC ABG pO2 Sodium Potassium Chloride Carbon Dioxide BUN Creatinine Glucose POC Glucose 151 H Lactic Acid Calcium Phosphorus Magnesium Direct Bilirubin AST ALT Alkaline Phosphatase Troponin T C-Reactive Protein Total Protein Albumin Prealbumin Triglycerides Cholesterol LDL Cholesterol Direct HDL Cholesterol Urine pH Urine WBC (Auto) Urine Creatinine Urine Total Protein Vancomycin Trough Rheumatoid Factor Complement C4 Miscellaneous Test Crossmatch See Detail 10/09/16 10/09/16 10/09/16 11:46 16:20 16:43 WBC RBC Hgb 7.2 L Hct 22.2 L MCV MCH MCHC RDW Plt Count Lymph % (Auto) [place] % (Auto) Lymph # [place] # Baso # Seg Neutrophils % Seg Neuts % (Manual) Lymphocytes % (Manual) Monocytes % (Manual) Eosinophils % (Manual) Basophils % (Manual) Nucleated RBC % Seg Neutrophils # Seg Neutrophils # Man Lymphocytes # (Manual) Monocytes # (Manual) Eosinophils # (Manual) PT INR Fibrinogen dRVVT Confirm Interp Factor V Activity POC ABG pH POC ABG pCO2 POC ABG pO2 Sodium Potassium Chloride Carbon Dioxide BUN Creatinine Glucose POC Glucose 133 H 141 H Lactic Acid Calcium Phosphorus Magnesium Direct Bilirubin AST ALT Alkaline Phosphatase Troponin T C-Reactive Protein Total Protein Albumin Prealbumin Triglycerides Cholesterol LDL Cholesterol Direct HDL Cholesterol Urine pH Urine WBC (Auto) Urine Creatinine Urine Total Protein Vancomycin Trough Rheumatoid Factor Complement C4 Miscellaneous Test Crossmatch 10/10/16 10/10/16 10/10/16 05:00 05:00 11:19 WBC 18.5 H RBC 2.19 L Hgb 6.4 L Hct 19.6 L* MCV MCH MCHC RDW 19.3 H Plt Count 93 L Lymph % (Auto) [place] % (Auto) Lymph # [place] # Baso # Seg Neutrophils % Seg Neuts % (Manual) Lymphocytes % (Manual) 10.0 L Monocytes % (Manual) Eosinophils % (Manual) Basophils % (Manual) Nucleated RBC % 4.0 H Seg Neutrophils # Seg Neutrophils # Man 11.3 H Lymphocytes # (Manual) Monocytes # (Manual) Eosinophils # (Manual) PT INR Fibrinogen dRVVT Confirm Interp Factor V Activity POC ABG pH POC ABG pCO2 POC ABG pO2 Sodium Potassium 5.7 H D Chloride Carbon Dioxide 16 L BUN 94 H Creatinine 3.1 H Glucose 131 H POC Glucose 153 H Lactic Acid Calcium 8.2 L Phosphorus 5.10 H Magnesium 2.40 H Direct Bilirubin 0.3 H AST ALT < 5 L Alkaline Phosphatase 319 H Troponin T C-Reactive Protein Total Protein 5.1 L Albumin 1.0 L Prealbumin Triglycerides Cholesterol LDL Cholesterol Direct HDL Cholesterol Urine pH Urine WBC (Auto) Urine Creatinine Urine Total Protein Vancomycin Trough Rheumatoid Factor Complement C4 Miscellaneous Test Crossmatch 10/10/16 10/10/16 10/11/16 17:50 23:30 04:15 WBC RBC Hgb Hct MCV MCH MCHC RDW Plt Count Lymph % (Auto) [place] % (Auto) Lymph # [place] # Baso # Seg Neutrophils % Seg Neuts % (Manual) Lymphocytes % (Manual) Monocytes % (Manual) Eosinophils % (Manual) Basophils % (Manual) Nucleated RBC % Seg Neutrophils # Seg Neutrophils # Man Lymphocytes # (Manual) Monocytes # (Manual) Eosinophils # (Manual) PT INR Fibrinogen dRVVT Confirm Interp Factor V Activity POC ABG pH POC ABG pCO2 POC ABG pO2 Sodium Potassium Chloride 96.4 L Carbon Dioxide 21 L BUN 57 H Creatinine 2.1 H Glucose 151 H POC Glucose 146 H 141 H Lactic Acid Calcium 8.3 L Phosphorus Magnesium Direct Bilirubin AST ALT Alkaline Phosphatase Troponin T C-Reactive Protein Total Protein Albumin Prealbumin Triglycerides Cholesterol LDL Cholesterol Direct HDL Cholesterol Urine pH Urine WBC (Auto) Urine Creatinine Urine Total Protein Vancomycin Trough Rheumatoid Factor Complement C4 Miscellaneous Test Crossmatch 10/11/16 10/11/16 10/11/16 04:15 04:15 05:30 WBC 28.3 H RBC 3.12 L Hgb 9.3 L Hct 28.7 L D MCV MCH MCHC RDW 17.7 H Plt Count 128 L Lymph % (Auto) [place] % (Auto) Lymph # [place] # Baso # Seg Neutrophils % Seg Neuts % (Manual) Lymphocytes % (Manual) Monocytes % (Manual) Eosinophils % (Manual) Basophils % (Manual) Nucleated RBC % Seg Neutrophils # Seg Neutrophils # Man Lymphocytes # (Manual) Monocytes # (Manual) Eosinophils # (Manual) PT INR Fibrinogen dRVVT Confirm Interp Factor V Activity POC ABG pH POC ABG pCO2 POC ABG pO2 Sodium Potassium Chloride Carbon Dioxide BUN Creatinine Glucose POC Glucose 167 H Lactic Acid Calcium Phosphorus Magnesium Direct Bilirubin AST ALT Alkaline Phosphatase Troponin T C-Reactive Protein 15.80 H Total Protein Albumin Prealbumin Triglycerides Cholesterol LDL Cholesterol Direct HDL Cholesterol Urine pH Urine WBC (Auto) Urine Creatinine Urine Total Protein Vancomycin Trough Rheumatoid Factor Complement C4 Miscellaneous Test Crossmatch 10/11/16 10/11/16 10/11/16 11:40 15:49 23:57 WBC RBC Hgb Hct MCV MCH MCHC RDW Plt Count Lymph % (Auto) [place] % (Auto) Lymph # [place] # Baso # Seg Neutrophils % Seg Neuts % (Manual) Lymphocytes % (Manual) Monocytes % (Manual) Eosinophils % (Manual) Basophils % (Manual) Nucleated RBC % Seg Neutrophils # Seg Neutrophils # Man Lymphocytes # (Manual) Monocytes # (Manual) Eosinophils # (Manual) PT INR Fibrinogen dRVVT Confirm Interp Factor V Activity POC ABG pH POC ABG pCO2 POC ABG pO2 Sodium Potassium Chloride Carbon Dioxide BUN Creatinine Glucose POC Glucose 139 H 168 H 161 H Lactic Acid Calcium Phosphorus Magnesium Direct Bilirubin AST ALT Alkaline Phosphatase Troponin T C-Reactive Protein Total Protein Albumin Prealbumin Triglycerides Cholesterol LDL Cholesterol Direct HDL Cholesterol Urine pH Urine WBC (Auto) Urine Creatinine Urine Total Protein Vancomycin Trough Rheumatoid Factor Complement C4 Miscellaneous Test Crossmatch 10/12/16 10/12/16 10/12/16 04:40 04:40 05:44 WBC 22.5 H RBC 2.88 L Hgb 8.8 L Hct 26.8 L MCV MCH MCHC RDW 17.8 H Plt Count Lymph % (Auto) [place] % (Auto) Lymph # [place] # Baso # Seg Neutrophils % Seg Neuts % (Manual) Lymphocytes % (Manual) Monocytes % (Manual) Eosinophils % (Manual) Basophils % (Manual) Nucleated RBC % Seg Neutrophils # Seg Neutrophils # Man Lymphocytes # (Manual) Monocytes # (Manual) Eosinophils # (Manual) PT INR Fibrinogen dRVVT Confirm Interp Factor V Activity POC ABG pH POC ABG pCO2 POC ABG pO2 Sodium 134 L Potassium Chloride 93.0 L Carbon Dioxide BUN 74 H Creatinine 2.5 H Glucose 137 H POC Glucose 158 H Lactic Acid Calcium 8.2 L Phosphorus Magnesium Direct Bilirubin AST ALT Alkaline Phosphatase Troponin T C-Reactive Protein Total Protein Albumin Prealbumin Triglycerides Cholesterol LDL Cholesterol Direct HDL Cholesterol Urine pH Urine WBC (Auto) Urine Creatinine Urine Total Protein Vancomycin Trough Rheumatoid Factor Complement C4 Miscellaneous Test Crossmatch 10/12/16 10/12/16 10/12/16 12:27 18:18 23:46 WBC RBC Hgb Hct MCV MCH MCHC RDW Plt Count Lymph % (Auto) [place] % (Auto) Lymph # [place] # Baso # Seg Neutrophils % Seg Neuts % (Manual) Lymphocytes % (Manual) Monocytes % (Manual) Eosinophils % (Manual) Basophils % (Manual) Nucleated RBC % Seg Neutrophils # Seg Neutrophils # Man Lymphocytes # (Manual) Monocytes # (Manual) Eosinophils # (Manual) PT INR Fibrinogen dRVVT Confirm Interp Factor V Activity POC ABG pH POC ABG pCO2 POC ABG pO2 Sodium Potassium Chloride Carbon Dioxide BUN Creatinine Glucose POC Glucose 153 H 140 H 150 H Lactic Acid Calcium Phosphorus Magnesium Direct Bilirubin AST ALT Alkaline Phosphatase Troponin T C-Reactive Protein Total Protein Albumin Prealbumin Triglycerides Cholesterol LDL Cholesterol Direct HDL Cholesterol Urine pH Urine WBC (Auto) Urine Creatinine Urine Total Protein Vancomycin Trough Rheumatoid Factor Complement C4 Miscellaneous Test Crossmatch 10/13/16 10/13/16 10/13/16 06:22 09:20 12:29 WBC RBC Hgb Hct MCV MCH MCHC RDW Plt Count Lymph % (Auto) [place] % (Auto) Lymph # [place] # Baso # Seg Neutrophils % Seg Neuts % (Manual) Lymphocytes % (Manual) Monocytes % (Manual) Eosinophils % (Manual) Basophils % (Manual) Nucleated RBC % Seg Neutrophils # Seg Neutrophils # Man Lymphocytes # (Manual) Monocytes # (Manual) Eosinophils # (Manual) PT INR Fibrinogen dRVVT Confirm Interp Factor V Activity POC ABG pH POC ABG pCO2 POC ABG pO2 Sodium Potassium Chloride Carbon Dioxide BUN Creatinine Glucose POC Glucose 165 H 193 H Lactic Acid Calcium Phosphorus Magnesium Direct Bilirubin AST ALT Alkaline Phosphatase Troponin T C-Reactive Protein Total Protein Albumin Prealbumin Triglycerides Cholesterol LDL Cholesterol Direct HDL Cholesterol Urine pH Urine WBC (Auto) Urine Creatinine Urine Total Protein Vancomycin Trough Rheumatoid Factor Complement C4 Miscellaneous Test Flexitest 1 H Crossmatch 10/13/16 10/13/16 10/13/16 18:09 Unknown Unknown WBC 23.4 H RBC 2.83 L Hgb 8.7 L Hct 26.1 L MCV MCH MCHC RDW 18.1 H Plt Count Lymph % (Auto) [place] % (Auto) Lymph # [place] # Baso # Seg Neutrophils % Seg Neuts % (Manual) Lymphocytes % (Manual) Monocytes % (Manual) Eosinophils % (Manual) Basophils % (Manual) Nucleated RBC % Seg Neutrophils # Seg Neutrophils # Man Lymphocytes # (Manual) Monocytes # (Manual) Eosinophils # (Manual) PT INR Fibrinogen dRVVT Confirm Interp Factor V Activity POC ABG pH POC ABG pCO2 POC ABG pO2 Sodium Potassium Chloride 95.8 L Carbon Dioxide BUN 82 H Creatinine 2.6 H Glucose 152 H POC Glucose 166 H Lactic Acid Calcium Phosphorus Magnesium Direct Bilirubin AST ALT Alkaline Phosphatase Troponin T C-Reactive Protein Total Protein Albumin Prealbumin Triglycerides Cholesterol LDL Cholesterol Direct HDL Cholesterol Urine pH Urine WBC (Auto) Urine Creatinine Urine Total Protein Vancomycin Trough Rheumatoid Factor Complement C4 Miscellaneous Test Crossmatch 10/14/16 10/14/16 10/14/16 05:38 06:35 08:10 WBC 20.7 H RBC 2.81 L Hgb 8.4 L Hct 27.2 L MCV MCH MCHC RDW 19.4 H Plt Count Lymph % (Auto) [place] % (Auto) Lymph # [place] # Baso # Seg Neutrophils % Seg Neuts % (Manual) Lymphocytes % (Manual) Monocytes % (Manual) Eosinophils % (Manual) Basophils % (Manual) Nucleated RBC % Seg Neutrophils # Seg Neutrophils # Man Lymphocytes # (Manual) Monocytes # (Manual) Eosinophils # (Manual) PT INR Fibrinogen dRVVT Confirm Interp Factor V Activity POC ABG pH POC ABG pCO2 POC ABG pO2 Sodium Potassium Chloride Carbon Dioxide BUN 58 H Creatinine 1.9 H Glucose 169 H POC Glucose 195 H Lactic Acid Calcium Phosphorus Magnesium Direct Bilirubin AST ALT Alkaline Phosphatase Troponin T C-Reactive Protein Total Protein Albumin Prealbumin Triglycerides Cholesterol LDL Cholesterol Direct HDL Cholesterol Urine pH Urine WBC (Auto) Urine Creatinine Urine Total Protein Vancomycin Trough Rheumatoid Factor Complement C4 Miscellaneous Test Crossmatch 10/14/16 10/14/16 10/14/16 11:44 17:13 23:28 WBC RBC Hgb Hct MCV MCH MCHC RDW Plt Count Lymph % (Auto) [place] % (Auto) Lymph # [place] # Baso # Seg Neutrophils % Seg Neuts % (Manual) Lymphocytes % (Manual) Monocytes % (Manual) Eosinophils % (Manual) Basophils % (Manual) Nucleated RBC % Seg Neutrophils # Seg Neutrophils # Man Lymphocytes # (Manual) Monocytes # (Manual) Eosinophils # (Manual) PT INR Fibrinogen dRVVT Confirm Interp Factor V Activity POC ABG pH POC ABG pCO2 POC ABG pO2 Sodium Potassium Chloride Carbon Dioxide BUN Creatinine Glucose POC Glucose 174 H 121 H 151 H Lactic Acid Calcium Phosphorus Magnesium Direct Bilirubin AST ALT Alkaline Phosphatase Troponin T C-Reactive Protein Total Protein Albumin Prealbumin Triglycerides Cholesterol LDL Cholesterol Direct HDL Cholesterol Urine pH Urine WBC (Auto) Urine Creatinine Urine Total Protein Vancomycin Trough Rheumatoid Factor Complement C4 Miscellaneous Test Crossmatch 10/15/16 10/15/16 10/15/16 05:06 12:26 17:48 WBC RBC Hgb Hct MCV MCH MCHC RDW Plt Count Lymph % (Auto) [place] % (Auto) Lymph # [place] # Baso # Seg Neutrophils % Seg Neuts % (Manual) Lymphocytes % (Manual) Monocytes % (Manual) Eosinophils % (Manual) Basophils % (Manual) Nucleated RBC % Seg Neutrophils # Seg Neutrophils # Man Lymphocytes # (Manual) Monocytes # (Manual) Eosinophils # (Manual) PT INR Fibrinogen dRVVT Confirm Interp Factor V Activity POC ABG pH POC ABG pCO2 POC ABG pO2 Sodium Potassium Chloride Carbon Dioxide BUN Creatinine Glucose POC Glucose 151 H 149 H 153 H Lactic Acid Calcium Phosphorus Magnesium Direct Bilirubin AST ALT Alkaline Phosphatase Troponin T C-Reactive Protein Total Protein Albumin Prealbumin Triglycerides Cholesterol LDL Cholesterol Direct HDL Cholesterol Urine pH Urine WBC (Auto) Urine Creatinine Urine Total Protein Vancomycin Trough Rheumatoid Factor Complement C4 Miscellaneous Test Crossmatch 10/15/16 10/15/16 10/16/16 Unknown Unknown 00:02 WBC 23.4 H RBC 2.78 L Hgb 8.5 L Hct 25.7 L MCV MCH MCHC RDW 18.7 H Plt Count Lymph % (Auto) [place] % (Auto) Lymph # [place] # Baso # Seg Neutrophils % Seg Neuts % (Manual) Lymphocytes % (Manual) Monocytes % (Manual) Eosinophils % (Manual) Basophils % (Manual) Nucleated RBC % Seg Neutrophils # Seg Neutrophils # Man Lymphocytes # (Manual) Monocytes # (Manual) Eosinophils # (Manual) PT INR Fibrinogen dRVVT Confirm Interp Factor V Activity POC ABG pH POC ABG pCO2 POC ABG pO2 Sodium Potassium Chloride Carbon Dioxide BUN 73 H Creatinine 2.3 H Glucose 120 H POC Glucose 137 H Lactic Acid Calcium Phosphorus Magnesium Direct Bilirubin AST ALT Alkaline Phosphatase Troponin T C-Reactive Protein Total Protein Albumin Prealbumin Triglycerides Cholesterol LDL Cholesterol Direct HDL Cholesterol Urine pH Urine WBC (Auto) Urine Creatinine Urine Total Protein Vancomycin Trough Rheumatoid Factor Complement C4 Miscellaneous Test Crossmatch 10/16/16 10/16/16 10/16/16 05:44 06:25 06:25 WBC 22.5 H RBC 2.76 L Hgb 8.3 L Hct 25.2 L MCV MCH MCHC RDW 18.3 H Plt Count Lymph % (Auto) [place] % (Auto) Lymph # [place] # Baso # Seg Neutrophils % Seg Neuts % (Manual) Lymphocytes % (Manual) Monocytes % (Manual) Eosinophils % (Manual) Basophils % (Manual) Nucleated RBC % Seg Neutrophils # Seg Neutrophils # Man Lymphocytes # (Manual) Monocytes # (Manual) Eosinophils # (Manual) PT INR Fibrinogen dRVVT Confirm Interp Factor V Activity POC ABG pH POC ABG pCO2 POC ABG pO2 Sodium Potassium Chloride Carbon Dioxide BUN 92 H Creatinine 3.0 H Glucose 138 H POC Glucose 110 H Lactic Acid Calcium Phosphorus Magnesium Direct Bilirubin AST ALT Alkaline Phosphatase Troponin T C-Reactive Protein Total Protein Albumin Prealbumin Triglycerides Cholesterol LDL Cholesterol Direct HDL Cholesterol Urine pH Urine WBC (Auto) Urine Creatinine Urine Total Protein Vancomycin Trough Rheumatoid Factor Complement C4 Miscellaneous Test Crossmatch 10/16/16 10/16/16 10/16/16 11:27 11:48 17:36 WBC RBC Hgb Hct MCV MCH MCHC RDW Plt Count Lymph % (Auto) [place] % (Auto) Lymph # [place] # Baso # Seg Neutrophils % Seg Neuts % (Manual) Lymphocytes % (Manual) Monocytes % (Manual) Eosinophils % (Manual) Basophils % (Manual) Nucleated RBC % Seg Neutrophils # Seg Neutrophils # Man Lymphocytes # (Manual) Monocytes # (Manual) Eosinophils # (Manual) PT INR Fibrinogen dRVVT Confirm Interp Factor V Activity POC ABG pH 7.582 H POC ABG pCO2 27.4 L POC ABG pO2 110 H Sodium Potassium Chloride Carbon Dioxide BUN Creatinine Glucose POC Glucose 121 H 133 H Lactic Acid Calcium Phosphorus Magnesium Direct Bilirubin AST ALT Alkaline Phosphatase Troponin T C-Reactive Protein Total Protein Albumin Prealbumin Triglycerides Cholesterol LDL Cholesterol Direct HDL Cholesterol Urine pH Urine WBC (Auto) Urine Creatinine Urine Total Protein Vancomycin Trough Rheumatoid Factor Complement C4 Miscellaneous Test Crossmatch 10/16/16 10/17/16 10/17/16 20:48 04:24 04:24 WBC 21.4 H RBC 2.72 L Hgb 8.0 L Hct 25.2 L MCV MCH MCHC RDW 18.0 H Plt Count Lymph % (Auto) [place] % (Auto) Lymph # [place] # Baso # Seg Neutrophils % Seg Neuts % (Manual) Lymphocytes % (Manual) Monocytes % (Manual) Eosinophils % (Manual) Basophils % (Manual) Nucleated RBC % Seg Neutrophils # Seg Neutrophils # Man Lymphocytes # (Manual) Monocytes # (Manual) Eosinophils # (Manual) PT INR Fibrinogen dRVVT Confirm Interp Factor V Activity POC ABG pH 7.561 H POC ABG pCO2 24.4 L POC ABG pO2 77 L Sodium 148 H Potassium Chloride Carbon Dioxide BUN 104 H Creatinine 3.0 H Glucose 149 H POC Glucose Lactic Acid Calcium Phosphorus Magnesium Direct Bilirubin AST ALT Alkaline Phosphatase 138 H Troponin T C-Reactive Protein Total Protein 6.2 L Albumin 1.5 L Prealbumin Triglycerides Cholesterol LDL Cholesterol Direct HDL Cholesterol Urine pH Urine WBC (Auto) Urine Creatinine Urine Total Protein Vancomycin Trough Rheumatoid Factor Complement C4 Miscellaneous Test Crossmatch 10/17/16 10/17/16 10/17/16 06:02 12:17 17:14 WBC RBC Hgb Hct MCV MCH MCHC RDW Plt Count Lymph % (Auto) [place] % (Auto) Lymph # [place] # Baso # Seg Neutrophils % Seg Neuts % (Manual) Lymphocytes % (Manual) Monocytes % (Manual) Eosinophils % (Manual) Basophils % (Manual) Nucleated RBC % Seg Neutrophils # Seg Neutrophils # Man Lymphocytes # (Manual) Monocytes # (Manual) Eosinophils # (Manual) PT INR Fibrinogen dRVVT Confirm Interp Factor V Activity POC ABG pH POC ABG pCO2 POC ABG pO2 Sodium Potassium Chloride Carbon Dioxide BUN Creatinine Glucose POC Glucose 170 H 167 H 126 H Lactic Acid Calcium Phosphorus Magnesium Direct Bilirubin AST ALT Alkaline Phosphatase Troponin T C-Reactive Protein Total Protein Albumin Prealbumin Triglycerides Cholesterol LDL Cholesterol Direct HDL Cholesterol Urine pH Urine WBC (Auto) Urine Creatinine Urine Total Protein Vancomycin Trough Rheumatoid Factor Complement C4 Miscellaneous Test Crossmatch 10/17/16 10/18/16 10/18/16 23:17 04:00 04:00 WBC 20.7 H RBC 2.47 L Hgb 7.4 L Hct 22.9 L MCV MCH MCHC RDW 17.5 H Plt Count Lymph % (Auto) [place] % (Auto) Lymph # [place] # Baso # Seg Neutrophils % Seg Neuts % (Manual) Lymphocytes % (Manual) Monocytes % (Manual) Eosinophils % (Manual) Basophils % (Manual) Nucleated RBC % Seg Neutrophils # Seg Neutrophils # Man Lymphocytes # (Manual) Monocytes # (Manual) Eosinophils # (Manual) PT INR Fibrinogen dRVVT Confirm Interp Factor V Activity POC ABG pH POC ABG pCO2 POC ABG pO2 Sodium 149 H Potassium Chloride 107.9 H Carbon Dioxide 20 L BUN 117 H Creatinine 3.2 H Glucose 119 H POC Glucose 121 H Lactic Acid Calcium Phosphorus Magnesium Direct Bilirubin AST ALT Alkaline Phosphatase Troponin T C-Reactive Protein Total Protein Albumin Prealbumin Triglycerides Cholesterol LDL Cholesterol Direct HDL Cholesterol Urine pH Urine WBC (Auto) Urine Creatinine Urine Total Protein Vancomycin Trough Rheumatoid Factor Complement C4 Miscellaneous Test Crossmatch 10/18/16 10/18/16 10/18/16 05:23 10:46 17:30 WBC RBC Hgb Hct MCV MCH MCHC RDW Plt Count Lymph % (Auto) [place] % (Auto) Lymph # [place] # Baso # Seg Neutrophils % Seg Neuts % (Manual) Lymphocytes % (Manual) Monocytes % (Manual) Eosinophils % (Manual) Basophils % (Manual) Nucleated RBC % Seg Neutrophils # Seg Neutrophils # Man Lymphocytes # (Manual) Monocytes # (Manual) Eosinophils # (Manual) PT INR Fibrinogen dRVVT Confirm Interp Factor V Activity POC ABG pH POC ABG pCO2 POC ABG pO2 Sodium Potassium Chloride Carbon Dioxide BUN Creatinine Glucose POC Glucose 119 H 155 H 124 H Lactic Acid Calcium Phosphorus Magnesium Direct Bilirubin AST ALT Alkaline Phosphatase Troponin T C-Reactive Protein Total Protein Albumin Prealbumin Triglycerides Cholesterol LDL Cholesterol Direct HDL Cholesterol Urine pH Urine WBC (Auto) Urine Creatinine Urine Total Protein Vancomycin Trough Rheumatoid Factor Complement C4 Miscellaneous Test Crossmatch 10/19/16 10/19/16 10/19/16 04:00 04:00 05:25 WBC 17.4 H RBC 2.54 L Hgb 7.7 L Hct 23.6 L MCV MCH MCHC RDW 17.3 H Plt Count Lymph % (Auto) [place] % (Auto) Lymph # [place] # Baso # Seg Neutrophils % Seg Neuts % (Manual) Lymphocytes % (Manual) Monocytes % (Manual) Eosinophils % (Manual) Basophils % (Manual) Nucleated RBC % Seg Neutrophils # Seg Neutrophils # Man Lymphocytes # (Manual) Monocytes # (Manual) Eosinophils # (Manual) PT INR Fibrinogen dRVVT Confirm Interp Factor V Activity POC ABG pH POC ABG pCO2 POC ABG pO2 Sodium Potassium Chloride Carbon Dioxide BUN 72 H Creatinine 2.1 H Glucose 116 H POC Glucose 119 H Lactic Acid Calcium Phosphorus Magnesium Direct Bilirubin AST ALT Alkaline Phosphatase Troponin T C-Reactive Protein Total Protein Albumin Prealbumin Triglycerides Cholesterol LDL Cholesterol Direct HDL Cholesterol Urine pH Urine WBC (Auto) Urine Creatinine Urine Total Protein Vancomycin Trough Rheumatoid Factor Complement C4 Miscellaneous Test Crossmatch 10/19/16 10/19/16 10/20/16 11:46 23:59 06:00 WBC RBC Hgb Hct MCV MCH MCHC RDW Plt Count Lymph % (Auto) [place] % (Auto) Lymph # [place] # Baso # Seg Neutrophils % Seg Neuts % (Manual) Lymphocytes % (Manual) Monocytes % (Manual) Eosinophils % (Manual) Basophils % (Manual) Nucleated RBC % Seg Neutrophils # Seg Neutrophils # Man Lymphocytes # (Manual) Monocytes # (Manual) Eosinophils # (Manual) PT INR Fibrinogen dRVVT Confirm Interp Factor V Activity POC ABG pH POC ABG pCO2 POC ABG pO2 Sodium Potassium Chloride Carbon Dioxide 17 L BUN 94 H Creatinine 2.7 H Glucose POC Glucose 116 H 117 H Lactic Acid Calcium Phosphorus Magnesium Direct Bilirubin AST ALT Alkaline Phosphatase Troponin T C-Reactive Protein Total Protein Albumin Prealbumin Triglycerides Cholesterol LDL Cholesterol Direct HDL Cholesterol Urine pH Urine WBC (Auto) Urine Creatinine Urine Total Protein Vancomycin Trough Rheumatoid Factor Complement C4 Miscellaneous Test Crossmatch 10/20/16 10/20/16 10/20/16 06:00 11:49 16:00 WBC 19.7 H RBC 2.51 L Hgb 7.7 L Hct 23.5 L MCV MCH MCHC RDW 17.5 H Plt Count Lymph % (Auto) [place] % (Auto) Lymph # [place] # Baso # Seg Neutrophils % Seg Neuts % (Manual) Lymphocytes % (Manual) Monocytes % (Manual) Eosinophils % (Manual) Basophils % (Manual) Nucleated RBC % Seg Neutrophils # Seg Neutrophils # Man Lymphocytes # (Manual) Monocytes # (Manual) Eosinophils # (Manual) PT INR Fibrinogen dRVVT Confirm Interp Factor V Activity POC ABG pH POC ABG pCO2 POC ABG pO2 Sodium Potassium Chloride Carbon Dioxide BUN Creatinine Glucose POC Glucose 117 H Lactic Acid Calcium Phosphorus Magnesium Direct Bilirubin AST ALT Alkaline Phosphatase Troponin T C-Reactive Protein Total Protein Albumin Prealbumin Triglycerides Cholesterol LDL Cholesterol Direct HDL Cholesterol Urine pH Urine WBC (Auto) Urine Creatinine Urine Total Protein Vancomycin Trough Rheumatoid Factor Complement C4 Miscellaneous Test Flexitest 1 H Crossmatch 10/20/16 10/20/16 10/21/16 18:36 23:39 04:00 WBC RBC Hgb Hct MCV MCH MCHC RDW Plt Count Lymph % (Auto) [place] % (Auto) Lymph # [place] # Baso # Seg Neutrophils % Seg Neuts % (Manual) Lymphocytes % (Manual) Monocytes % (Manual) Eosinophils % (Manual) Basophils % (Manual) Nucleated RBC % Seg Neutrophils # Seg Neutrophils # Man Lymphocytes # (Manual) Monocytes # (Manual) Eosinophils # (Manual) PT INR Fibrinogen dRVVT Confirm Interp Factor V Activity POC ABG pH POC ABG pCO2 POC ABG pO2 Sodium Potassium 5.4 H D Chloride Carbon Dioxide 15 L BUN 110 H Creatinine 3.0 H Glucose POC Glucose 127 H 114 H Lactic Acid Calcium Phosphorus Magnesium Direct Bilirubin AST ALT Alkaline Phosphatase Troponin T C-Reactive Protein Total Protein Albumin Prealbumin Triglycerides Cholesterol LDL Cholesterol Direct HDL Cholesterol Urine pH Urine WBC (Auto) Urine Creatinine Urine Total Protein Vancomycin Trough Rheumatoid Factor Complement C4 Miscellaneous Test Crossmatch 10/21/16 10/21/16 10/22/16 05:54 23:46 05:18 WBC RBC Hgb Hct MCV MCH MCHC RDW Plt Count Lymph % (Auto) [place] % (Auto) Lymph # [place] # Baso # Seg Neutrophils % Seg Neuts % (Manual) Lymphocytes % (Manual) Monocytes % (Manual) Eosinophils % (Manual) Basophils % (Manual) Nucleated RBC % Seg Neutrophils # Seg Neutrophils # Man Lymphocytes # (Manual) Monocytes # (Manual) Eosinophils # (Manual) PT INR Fibrinogen dRVVT Confirm Interp Factor V Activity POC ABG pH POC ABG pCO2 POC ABG pO2 Sodium Potassium Chloride Carbon Dioxide BUN Creatinine Glucose POC Glucose 119 H 108 H 109 H Lactic Acid Calcium Phosphorus Magnesium Direct Bilirubin AST ALT Alkaline Phosphatase Troponin T C-Reactive Protein Total Protein Albumin Prealbumin Triglycerides Cholesterol LDL Cholesterol Direct HDL Cholesterol Urine pH Urine WBC (Auto) Urine Creatinine Urine Total Protein Vancomycin Trough Rheumatoid Factor Complement C4 Miscellaneous Test Crossmatch 10/22/16 10/22/16 10/22/16 06:40 06:40 06:40 WBC 14.0 H RBC 2.03 L Hgb 7.0 L Hct 20.5 L MCV 98 H MCH 34 H MCHC 35 H RDW 17.8 H Plt Count Lymph % (Auto) [place] % (Auto) 9.9 H Lymph # [place] # 1.4 H Baso # 0.2 H Seg Neutrophils % 72.0 H Seg Neuts % (Manual) Lymphocytes % (Manual) Monocytes % (Manual) Eosinophils % (Manual) Basophils % (Manual) Nucleated RBC % Seg Neutrophils # 10.0 H Seg Neutrophils # Man Lymphocytes # (Manual) Monocytes # (Manual) Eosinophils # (Manual) PT INR Fibrinogen dRVVT Confirm Interp Factor V Activity POC ABG pH POC ABG pCO2 POC ABG pO2 Sodium 130 L D Potassium Chloride 92.4 L Carbon Dioxide 20 L BUN 50 H Creatinine 1.6 H Glucose 589 H* POC Glucose Lactic Acid Calcium 7.8 L D Phosphorus Magnesium 1.60 L Direct Bilirubin AST ALT Alkaline Phosphatase Troponin T C-Reactive Protein Total Protein Albumin Prealbumin Triglycerides Cholesterol LDL Cholesterol Direct HDL Cholesterol Urine pH Urine WBC (Auto) Urine Creatinine Urine Total Protein Vancomycin Trough Rheumatoid Factor Complement C4 Miscellaneous Test Crossmatch 10/22/16 10/22/16 10/22/16 11:39 16:44 23:36 WBC RBC Hgb Hct MCV MCH MCHC RDW Plt Count Lymph % (Auto) [place] % (Auto) Lymph # [place] # Baso # Seg Neutrophils % Seg Neuts % (Manual) Lymphocytes % (Manual) Monocytes % (Manual) Eosinophils % (Manual) Basophils % (Manual) Nucleated RBC % Seg Neutrophils # Seg Neutrophils # Man Lymphocytes # (Manual) Monocytes # (Manual) Eosinophils # (Manual) PT INR Fibrinogen dRVVT Confirm Interp Factor V Activity POC ABG pH POC ABG pCO2 POC ABG pO2 Sodium Potassium Chloride Carbon Dioxide BUN Creatinine Glucose POC Glucose 142 H 163 H 123 H Lactic Acid Calcium Phosphorus Magnesium Direct Bilirubin AST ALT Alkaline Phosphatase Troponin T C-Reactive Protein Total Protein Albumin Prealbumin Triglycerides Cholesterol LDL Cholesterol Direct HDL Cholesterol Urine pH Urine WBC (Auto) Urine Creatinine Urine Total Protein Vancomycin Trough Rheumatoid Factor Complement C4 Miscellaneous Test Crossmatch 10/23/16 10/23/16 10/23/16 04:58 06:00 12:12 WBC RBC Hgb Hct MCV MCH MCHC RDW Plt Count Lymph % (Auto) [place] % (Auto) Lymph # [place] # Baso # Seg Neutrophils % Seg Neuts % (Manual) Lymphocytes % (Manual) Monocytes % (Manual) Eosinophils % (Manual) Basophils % (Manual) Nucleated RBC % Seg Neutrophils # Seg Neutrophils # Man Lymphocytes # (Manual) Monocytes # (Manual) Eosinophils # (Manual) PT INR Fibrinogen dRVVT Confirm Interp Factor V Activity POC ABG pH POC ABG pCO2 POC ABG pO2 Sodium 133 L Potassium 3.5 L Chloride 96.1 L Carbon Dioxide 18 L BUN 76 H Creatinine 2.1 H Glucose POC Glucose 133 H 138 H Lactic Acid Calcium 8.3 L Phosphorus Magnesium Direct Bilirubin AST ALT Alkaline Phosphatase Troponin T C-Reactive Protein Total Protein Albumin Prealbumin Triglycerides Cholesterol LDL Cholesterol Direct HDL Cholesterol Urine pH Urine WBC (Auto) Urine Creatinine Urine Total Protein Vancomycin Trough Rheumatoid Factor Complement C4 Miscellaneous Test Crossmatch 10/23/16 10/23/16 10/24/16 16:53 23:37 04:00 WBC RBC Hgb Hct MCV MCH MCHC RDW Plt Count Lymph % (Auto) [place] % (Auto) Lymph # [place] # Baso # Seg Neutrophils % Seg Neuts % (Manual) Lymphocytes % (Manual) Monocytes % (Manual) Eosinophils % (Manual) Basophils % (Manual) Nucleated RBC % Seg Neutrophils # Seg Neutrophils # Man Lymphocytes # (Manual) Monocytes # (Manual) Eosinophils # (Manual) PT INR Fibrinogen dRVVT Confirm Interp Factor V Activity POC ABG pH POC ABG pCO2 POC ABG pO2 Sodium 131 L Potassium Chloride 94.5 L Carbon Dioxide 19 L BUN 97 H Creatinine 2.6 H Glucose 110 H POC Glucose 125 H 123 H Lactic Acid Calcium 8.3 L Phosphorus Magnesium Direct Bilirubin AST ALT Alkaline Phosphatase Troponin T C-Reactive Protein Total Protein Albumin Prealbumin Triglycerides Cholesterol LDL Cholesterol Direct HDL Cholesterol Urine pH Urine WBC (Auto) Urine Creatinine Urine Total Protein Vancomycin Trough Rheumatoid Factor Complement C4 Miscellaneous Test Crossmatch 10/24/16 10/24/16 10/24/16 07:49 11:39 17:52 WBC RBC Hgb 6.0 L Hct 19.7 L* MCV MCH MCHC RDW Plt Count Lymph % (Auto) [place] % (Auto) Lymph # [place] # Baso # Seg Neutrophils % Seg Neuts % (Manual) Lymphocytes % (Manual) Monocytes % (Manual) Eosinophils % (Manual) Basophils % (Manual) Nucleated RBC % Seg Neutrophils # Seg Neutrophils # Man Lymphocytes # (Manual) Monocytes # (Manual) Eosinophils # (Manual) PT INR Fibrinogen dRVVT Confirm Interp Factor V Activity POC ABG pH POC ABG pCO2 POC ABG pO2 Sodium Potassium Chloride Carbon Dioxide BUN Creatinine Glucose POC Glucose 106 H 158 H Lactic Acid Calcium Phosphorus Magnesium Direct Bilirubin AST ALT Alkaline Phosphatase Troponin T C-Reactive Protein Total Protein Albumin Prealbumin Triglycerides Cholesterol LDL Cholesterol Direct HDL Cholesterol Urine pH Urine WBC (Auto) Urine Creatinine Urine Total Protein Vancomycin Trough Rheumatoid Factor Complement C4 Miscellaneous Test Crossmatch 10/24/16 10/24/16 10/24/16 20:00 22:27 Unknown WBC RBC Hgb 9.4 L D Hct 27.5 L D MCV MCH MCHC RDW Plt Count Lymph % (Auto) [place] % (Auto) Lymph # [place] # Baso # Seg Neutrophils % Seg Neuts % (Manual) Lymphocytes % (Manual) Monocytes % (Manual) Eosinophils % (Manual) Basophils % (Manual) Nucleated RBC % Seg Neutrophils # Seg Neutrophils # Man Lymphocytes # (Manual) Monocytes # (Manual) Eosinophils # (Manual) PT INR Fibrinogen dRVVT Confirm Interp Factor V Activity POC ABG pH POC ABG pCO2 POC ABG pO2 Sodium Potassium Chloride Carbon Dioxide BUN Creatinine Glucose POC Glucose 125 H Lactic Acid Calcium Phosphorus Magnesium Direct Bilirubin AST ALT Alkaline Phosphatase Troponin T C-Reactive Protein Total Protein Albumin Prealbumin Triglycerides Cholesterol LDL Cholesterol Direct HDL Cholesterol Urine pH Urine WBC (Auto) Urine Creatinine Urine Total Protein Vancomycin Trough Rheumatoid Factor Complement C4 Miscellaneous Test Crossmatch See Detail 10/25/16 10/25/16 10/25/16 04:00 04:00 04:00 WBC 14.2 H RBC 2.98 L Hgb 9.0 L Hct 26.2 L MCV MCH MCHC RDW 16.6 H Plt Count Lymph % (Auto) [place] % (Auto) 10.7 H Lymph # [place] # 1.5 H Baso # Seg Neutrophils % 73.6 H Seg Neuts % (Manual) Lymphocytes % (Manual) Monocytes % (Manual) Eosinophils % (Manual) Basophils % (Manual) Nucleated RBC % Seg Neutrophils # 10.5 H Seg Neutrophils # Man Lymphocytes # (Manual) Monocytes # (Manual) Eosinophils # (Manual) PT INR Fibrinogen dRVVT Confirm Interp Factor V Activity POC ABG pH POC ABG pCO2 POC ABG pO2 Sodium 132 L Potassium Chloride 94.7 L Carbon Dioxide BUN 51 H Creatinine 1.6 H Glucose 130 H POC Glucose Lactic Acid Calcium 8.3 L Phosphorus 1.60 L D Magnesium Direct Bilirubin AST ALT Alkaline Phosphatase Troponin T C-Reactive Protein Total Protein Albumin Prealbumin Triglycerides Cholesterol LDL Cholesterol Direct HDL Cholesterol Urine pH Urine WBC (Auto) Urine Creatinine Urine Total Protein Vancomycin Trough Rheumatoid Factor Complement C4 Miscellaneous Test Crossmatch 10/25/16 10/25/16 10/25/16 04:32 11:48 17:22 WBC RBC Hgb Hct MCV MCH MCHC RDW Plt Count Lymph % (Auto) [place] % (Auto) Lymph # [place] # Baso # Seg Neutrophils % Seg Neuts % (Manual) Lymphocytes % (Manual) Monocytes % (Manual) Eosinophils % (Manual) Basophils % (Manual) Nucleated RBC % Seg Neutrophils # Seg Neutrophils # Man Lymphocytes # (Manual) Monocytes # (Manual) Eosinophils # (Manual) PT INR Fibrinogen dRVVT Confirm Interp Factor V Activity POC ABG pH POC ABG pCO2 POC ABG pO2 Sodium Potassium Chloride Carbon Dioxide BUN Creatinine Glucose POC Glucose 124 H 171 H 120 H Lactic Acid Calcium Phosphorus Magnesium Direct Bilirubin AST ALT Alkaline Phosphatase Troponin T C-Reactive Protein Total Protein Albumin Prealbumin Triglycerides Cholesterol LDL Cholesterol Direct HDL Cholesterol Urine pH Urine WBC (Auto) Urine Creatinine Urine Total Protein Vancomycin Trough Rheumatoid Factor Complement C4 Miscellaneous Test Crossmatch 10/26/16 10/26/16 10/26/16 04:54 07:06 07:06 WBC 16.9 H RBC 3.06 L Hgb 9.1 L Hct 26.9 L MCV MCH MCHC RDW 16.9 H Plt Count Lymph % (Auto) [place] % (Auto) Lymph # [place] # Baso # Seg Neutrophils % Seg Neuts % (Manual) 71.0 H Lymphocytes % (Manual) 5.0 L Monocytes % (Manual) 12.0 H Eosinophils % (Manual) Basophils % (Manual) Nucleated RBC % Seg Neutrophils # Seg Neutrophils # Man 12.0 H Lymphocytes # (Manual) 0.8 L Monocytes # (Manual) 2.0 H Eosinophils # (Manual) PT INR Fibrinogen dRVVT Confirm Interp Factor V Activity POC ABG pH POC ABG pCO2 POC ABG pO2 Sodium 135 L Potassium Chloride 97.1 L Carbon Dioxide BUN 73 H Creatinine 2.2 H Glucose 117 H POC Glucose 123 H Lactic Acid Calcium Phosphorus 1.70 L Magnesium Direct Bilirubin AST ALT Alkaline Phosphatase Troponin T C-Reactive Protein Total Protein Albumin Prealbumin Triglycerides Cholesterol LDL Cholesterol Direct HDL Cholesterol Urine pH Urine WBC (Auto) Urine Creatinine Urine Total Protein Vancomycin Trough Rheumatoid Factor Complement C4 Miscellaneous Test Crossmatch 10/26/16 10/26/16 10/26/16 12:12 17:29 23:42 WBC RBC Hgb Hct MCV MCH MCHC RDW Plt Count Lymph % (Auto) [place] % (Auto) Lymph # [place] # Baso # Seg Neutrophils % Seg Neuts % (Manual) Lymphocytes % (Manual) Monocytes % (Manual) Eosinophils % (Manual) Basophils % (Manual) Nucleated RBC % Seg Neutrophils # Seg Neutrophils # Man Lymphocytes # (Manual) Monocytes # (Manual) Eosinophils # (Manual) PT INR Fibrinogen dRVVT Confirm Interp Factor V Activity POC ABG pH POC ABG pCO2 POC ABG pO2 Sodium Potassium Chloride Carbon Dioxide BUN Creatinine Glucose POC Glucose 126 H 161 H 118 H Lactic Acid Calcium Phosphorus Magnesium Direct Bilirubin AST ALT Alkaline Phosphatase Troponin T C-Reactive Protein Total Protein Albumin Prealbumin Triglycerides Cholesterol LDL Cholesterol Direct HDL Cholesterol Urine pH Urine WBC (Auto) Urine Creatinine Urine Total Protein Vancomycin Trough Rheumatoid Factor Complement C4 Miscellaneous Test Crossmatch 10/27/16 10/27/16 10/27/16 05:03 06:30 06:30 WBC 13.9 H RBC 3.09 L Hgb 9.2 L Hct 27.5 L MCV MCH MCHC RDW 17.0 H Plt Count Lymph % (Auto) [place] % (Auto) Lymph # [place] # Baso # Seg Neutrophils % Seg Neuts % (Manual) 78.0 H Lymphocytes % (Manual) Monocytes % (Manual) Eosinophils % (Manual) Basophils % (Manual) Nucleated RBC % 2.0 H Seg Neutrophils # Seg Neutrophils # Man 10.8 H Lymphocytes # (Manual) Monocytes # (Manual) 1.0 H Eosinophils # (Manual) PT INR Fibrinogen dRVVT Confirm Interp Factor V Activity POC ABG pH POC ABG pCO2 POC ABG pO2 Sodium Potassium Chloride Carbon Dioxide BUN 40 H Creatinine 1.5 H Glucose 135 H POC Glucose 107 H Lactic Acid Calcium 8.3 L Phosphorus 1.30 L D Magnesium Direct Bilirubin AST ALT Alkaline Phosphatase Troponin T C-Reactive Protein Total Protein Albumin Prealbumin Triglycerides Cholesterol LDL Cholesterol Direct HDL Cholesterol Urine pH Urine WBC (Auto) Urine Creatinine Urine Total Protein Vancomycin Trough Rheumatoid Factor Complement C4 Miscellaneous Test Crossmatch 10/27/16 10/27/16 10/27/16 13:27 18:07 23:40 WBC RBC Hgb Hct MCV MCH MCHC RDW Plt Count Lymph % (Auto) [place] % (Auto) Lymph # [place] # Baso # Seg Neutrophils % Seg Neuts % (Manual) Lymphocytes % (Manual) Monocytes % (Manual) Eosinophils % (Manual) Basophils % (Manual) Nucleated RBC % Seg Neutrophils # Seg Neutrophils # Man Lymphocytes # (Manual) Monocytes # (Manual) Eosinophils # (Manual) PT INR Fibrinogen dRVVT Confirm Interp Factor V Activity POC ABG pH POC ABG pCO2 POC ABG pO2 Sodium Potassium Chloride Carbon Dioxide BUN Creatinine Glucose POC Glucose 117 H 121 H 118 H Lactic Acid Calcium Phosphorus Magnesium Direct Bilirubin AST ALT Alkaline Phosphatase Troponin T C-Reactive Protein Total Protein Albumin Prealbumin Triglycerides Cholesterol LDL Cholesterol Direct HDL Cholesterol Urine pH Urine WBC (Auto) Urine Creatinine Urine Total Protein Vancomycin Trough Rheumatoid Factor Complement C4 Miscellaneous Test Crossmatch 10/28/16 10/28/16 10/28/16 05:48 06:45 06:45 WBC 14.7 H RBC 3.05 L Hgb 9.0 L Hct 26.9 L MCV MCH MCHC RDW 16.8 H Plt Count Lymph % (Auto) 8.2 L [place] % (Auto) 8.4 H Lymph # [place] # 1.2 H Baso # Seg Neutrophils % 81.9 H Seg Neuts % (Manual) Lymphocytes % (Manual) Monocytes % (Manual) Eosinophils % (Manual) Basophils % (Manual) Nucleated RBC % Seg Neutrophils # 12.1 H Seg Neutrophils # Man Lymphocytes # (Manual) Monocytes # (Manual) Eosinophils # (Manual) PT INR Fibrinogen dRVVT Confirm Interp Factor V Activity POC ABG pH POC ABG pCO2 POC ABG pO2 Sodium Potassium Chloride Carbon Dioxide BUN 60 H Creatinine 1.9 H Glucose 120 H POC Glucose 114 H Lactic Acid Calcium Phosphorus Magnesium Direct Bilirubin AST ALT Alkaline Phosphatase Troponin T C-Reactive Protein Total Protein Albumin Prealbumin Triglycerides Cholesterol LDL Cholesterol Direct HDL Cholesterol Urine pH Urine WBC (Auto) Urine Creatinine Urine Total Protein Vancomycin Trough Rheumatoid Factor Complement C4 Miscellaneous Test Crossmatch 10/28/16 10/28/16 10/29/16 17:08 23:50 05:10 WBC RBC Hgb Hct MCV MCH MCHC RDW Plt Count Lymph % (Auto) [place] % (Auto) Lymph # [place] # Baso # Seg Neutrophils % Seg Neuts % (Manual) Lymphocytes % (Manual) Monocytes % (Manual) Eosinophils % (Manual) Basophils % (Manual) Nucleated RBC % Seg Neutrophils # Seg Neutrophils # Man Lymphocytes # (Manual) Monocytes # (Manual) Eosinophils # (Manual) PT INR Fibrinogen dRVVT Confirm Interp Factor V Activity POC ABG pH POC ABG pCO2 POC ABG pO2 Sodium Potassium Chloride Carbon Dioxide BUN Creatinine Glucose POC Glucose 109 H 110 H 124 H Lactic Acid Calcium Phosphorus Magnesium Direct Bilirubin AST ALT Alkaline Phosphatase Troponin T C-Reactive Protein Total Protein Albumin Prealbumin Triglycerides Cholesterol LDL Cholesterol Direct HDL Cholesterol Urine pH Urine WBC (Auto) Urine Creatinine Urine Total Protein Vancomycin Trough Rheumatoid Factor Complement C4 Miscellaneous Test Crossmatch 10/29/16 10/29/16 10/29/16 07:45 07:45 12:19 WBC 14.7 H RBC 3.15 L Hgb 9.3 L Hct 28.9 L MCV MCH MCHC RDW 17.0 H Plt Count Lymph % (Auto) 11.9 L [place] % (Auto) 8.6 H Lymph # [place] # 1.3 H Baso # Seg Neutrophils % 78.1 H Seg Neuts % (Manual) Lymphocytes % (Manual) Monocytes % (Manual) Eosinophils % (Manual) Basophils % (Manual) Nucleated RBC % Seg Neutrophils # 11.4 H Seg Neutrophils # Man Lymphocytes # (Manual) Monocytes # (Manual) Eosinophils # (Manual) PT INR Fibrinogen dRVVT Confirm Interp Factor V Activity POC ABG pH POC ABG pCO2 POC ABG pO2 Sodium Potassium 5.1 H Chloride Carbon Dioxide 19 L BUN 78 H Creatinine 2.2 H Glucose 116 H POC Glucose 118 H Lactic Acid Calcium Phosphorus Magnesium Direct Bilirubin AST ALT Alkaline Phosphatase Troponin T C-Reactive Protein Total Protein Albumin Prealbumin Triglycerides Cholesterol LDL Cholesterol Direct HDL Cholesterol Urine pH Urine WBC (Auto) Urine Creatinine Urine Total Protein Vancomycin Trough Rheumatoid Factor Complement C4 Miscellaneous Test Crossmatch 10/29/16 10/30/16 10/30/16 17:49 01:52 03:28 WBC RBC Hgb Hct MCV MCH MCHC RDW Plt Count Lymph % (Auto) [place] % (Auto) Lymph # [place] # Baso # Seg Neutrophils % Seg Neuts % (Manual) Lymphocytes % (Manual) Monocytes % (Manual) Eosinophils % (Manual) Basophils % (Manual) Nucleated RBC % Seg Neutrophils # Seg Neutrophils # Man Lymphocytes # (Manual) Monocytes # (Manual) Eosinophils # (Manual) PT INR Fibrinogen dRVVT Confirm Interp Factor V Activity POC ABG pH POC ABG pCO2 POC ABG pO2 Sodium Potassium 5.4 H Chloride 97.5 L Carbon Dioxide 19 L BUN 90 H Creatinine 2.5 H Glucose POC Glucose 120 H 129 H Lactic Acid Calcium Phosphorus 5.20 H Magnesium Direct Bilirubin AST ALT Alkaline Phosphatase Troponin T C-Reactive Protein Total Protein Albumin Prealbumin Triglycerides Cholesterol LDL Cholesterol Direct HDL Cholesterol Urine pH Urine WBC (Auto) Urine Creatinine Urine Total Protein Vancomycin Trough Rheumatoid Factor Complement C4 Miscellaneous Test Crossmatch 10/30/16 10/30/16 10/30/16 03:28 08:19 08:19 WBC 11.6 H 15.9 H RBC 2.75 L 2.82 L Hgb 7.9 L 8.3 L Hct 24.2 L 25.2 L MCV MCH MCHC RDW 16.7 H 17.2 H Plt Count Lymph % (Auto) [place] % (Auto) 9.8 H Lymph # [place] # 1.1 H Baso # Seg Neutrophils % 74.2 H Seg Neuts % (Manual) Lymphocytes % (Manual) Monocytes % (Manual) Eosinophils % (Manual) Basophils % (Manual) Nucleated RBC % Seg Neutrophils # 8.6 H Seg Neutrophils # Man Lymphocytes # (Manual) Monocytes # (Manual) Eosinophils # (Manual) PT INR Fibrinogen dRVVT Confirm Interp Factor V Activity POC ABG pH POC ABG pCO2 POC ABG pO2 Sodium Potassium 5.3 H Chloride 97.4 L Carbon Dioxide 19 L BUN 93 H Creatinine 2.6 H Glucose POC Glucose Lactic Acid Calcium Phosphorus Magnesium Direct Bilirubin AST ALT Alkaline Phosphatase Troponin T C-Reactive Protein Total Protein Albumin Prealbumin Triglycerides Cholesterol LDL Cholesterol Direct HDL Cholesterol Urine pH Urine WBC (Auto) Urine Creatinine Urine Total Protein Vancomycin Trough Rheumatoid Factor Complement C4 Miscellaneous Test Crossmatch 10/30/16 10/30/16 10/31/16 17:11 23:56 00:40 WBC RBC Hgb Hct MCV MCH MCHC RDW Plt Count Lymph % (Auto) [place] % (Auto) Lymph # [place] # Baso # Seg Neutrophils % Seg Neuts % (Manual) Lymphocytes % (Manual) Monocytes % (Manual) Eosinophils % (Manual) Basophils % (Manual) Nucleated RBC % Seg Neutrophils # Seg Neutrophils # Man Lymphocytes # (Manual) Monocytes # (Manual) Eosinophils # (Manual) PT INR Fibrinogen dRVVT Confirm Interp Factor V Activity POC ABG pH POC ABG pCO2 POC ABG pO2 Sodium Potassium Chloride Carbon Dioxide BUN Creatinine Glucose POC Glucose 106 H 117 H 120 H Lactic Acid Calcium Phosphorus Magnesium Direct Bilirubin AST ALT Alkaline Phosphatase Troponin T C-Reactive Protein Total Protein Albumin Prealbumin Triglycerides Cholesterol LDL Cholesterol Direct HDL Cholesterol Urine pH Urine WBC (Auto) Urine Creatinine Urine Total Protein Vancomycin Trough Rheumatoid Factor Complement C4 Miscellaneous Test Crossmatch 10/31/16 10/31/16 10/31/16 05:43 07:15 07:15 WBC 12.1 H RBC 2.63 L Hgb 7.7 L Hct 23.3 L MCV MCH MCHC RDW 16.7 H Plt Count Lymph % (Auto) 11.7 L [place] % (Auto) 7.7 H Lymph # [place] # 0.9 H Baso # Seg Neutrophils % 78.0 H Seg Neuts % (Manual) Lymphocytes % (Manual) Monocytes % (Manual) Eosinophils % (Manual) Basophils % (Manual) Nucleated RBC % Seg Neutrophils # 9.4 H Seg Neutrophils # Man Lymphocytes # (Manual) Monocytes # (Manual) Eosinophils # (Manual) PT INR Fibrinogen dRVVT Confirm Interp Factor V Activity POC ABG pH POC ABG pCO2 POC ABG pO2 Sodium Potassium Chloride 96.4 L Carbon Dioxide 21 L BUN 99 H Creatinine 2.6 H Glucose 144 H POC Glucose 125 H Lactic Acid Calcium Phosphorus 4.80 H Magnesium Direct Bilirubin AST ALT Alkaline Phosphatase Troponin T C-Reactive Protein Total Protein Albumin Prealbumin Triglycerides Cholesterol LDL Cholesterol Direct HDL Cholesterol Urine pH Urine WBC (Auto) Urine Creatinine Urine Total Protein Vancomycin Trough Rheumatoid Factor Complement C4 Miscellaneous Test Crossmatch 10/31/16 10/31/16 11/01/16 11:46 18:34 00:20 WBC RBC Hgb Hct MCV MCH MCHC RDW Plt Count Lymph % (Auto) [place] % (Auto) Lymph # [place] # Baso # Seg Neutrophils % Seg Neuts % (Manual) Lymphocytes % (Manual) Monocytes % (Manual) Eosinophils % (Manual) Basophils % (Manual) Nucleated RBC % Seg Neutrophils # Seg Neutrophils # Man Lymphocytes # (Manual) Monocytes # (Manual) Eosinophils # (Manual) PT INR Fibrinogen dRVVT Confirm Interp Factor V Activity POC ABG pH POC ABG pCO2 POC ABG pO2 Sodium Potassium Chloride Carbon Dioxide BUN Creatinine Glucose POC Glucose 159 H 140 H 132 H Lactic Acid Calcium Phosphorus Magnesium Direct Bilirubin AST ALT Alkaline Phosphatase Troponin T C-Reactive Protein Total Protein Albumin Prealbumin Triglycerides Cholesterol LDL Cholesterol Direct HDL Cholesterol Urine pH Urine WBC (Auto) Urine Creatinine Urine Total Protein Vancomycin Trough Rheumatoid Factor Complement C4 Miscellaneous Test Crossmatch 11/01/16 11/01/16 11/01/16 04:55 04:55 06:11 WBC 11.2 H RBC 2.68 L Hgb 7.5 L Hct 23.7 L MCV MCH MCHC RDW 16.1 H Plt Count Lymph % (Auto) [place] % (Auto) 9.8 H Lymph # [place] # 1.1 H Baso # Seg Neutrophils % 70.8 H Seg Neuts % (Manual) Lymphocytes % (Manual) Monocytes % (Manual) Eosinophils % (Manual) Basophils % (Manual) Nucleated RBC % Seg Neutrophils # 7.9 H Seg Neutrophils # Man Lymphocytes # (Manual) Monocytes # (Manual) Eosinophils # (Manual) PT INR Fibrinogen dRVVT Confirm Interp Factor V Activity POC ABG pH POC ABG pCO2 POC ABG pO2 Sodium Potassium 3.3 L D Chloride Carbon Dioxide BUN 61 H Creatinine 1.9 H Glucose 114 H POC Glucose 115 H Lactic Acid Calcium Phosphorus 1.80 L D Magnesium Direct Bilirubin AST ALT Alkaline Phosphatase Troponin T C-Reactive Protein Total Protein Albumin Prealbumin Triglycerides Cholesterol LDL Cholesterol Direct HDL Cholesterol Urine pH Urine WBC (Auto) Urine Creatinine Urine Total Protein Vancomycin Trough Rheumatoid Factor Complement C4 Miscellaneous Test Crossmatch 11/01/16 11/01/16 11/01/16 12:29 18:23 23:58 WBC RBC Hgb Hct MCV MCH MCHC RDW Plt Count Lymph % (Auto) [place] % (Auto) Lymph # [place] # Baso # Seg Neutrophils % Seg Neuts % (Manual) Lymphocytes % (Manual) Monocytes % (Manual) Eosinophils % (Manual) Basophils % (Manual) Nucleated RBC % Seg Neutrophils # Seg Neutrophils # Man Lymphocytes # (Manual) Monocytes # (Manual) Eosinophils # (Manual) PT INR Fibrinogen dRVVT Confirm Interp Factor V Activity POC ABG pH POC ABG pCO2 POC ABG pO2 Sodium Potassium Chloride Carbon Dioxide BUN Creatinine Glucose POC Glucose 142 H 143 H 128 H Lactic Acid Calcium Phosphorus Magnesium Direct Bilirubin AST ALT Alkaline Phosphatase Troponin T C-Reactive Protein Total Protein Albumin Prealbumin Triglycerides Cholesterol LDL Cholesterol Direct HDL Cholesterol Urine pH Urine WBC (Auto) Urine Creatinine Urine Total Protein Vancomycin Trough Rheumatoid Factor Complement C4 Miscellaneous Test Crossmatch 11/02/16 11/02/16 11/02/16 04:16 05:29 11:58 WBC RBC Hgb Hct MCV MCH MCHC RDW Plt Count Lymph % (Auto) [place] % (Auto) Lymph # [place] # Baso # Seg Neutrophils % Seg Neuts % (Manual) Lymphocytes % (Manual) Monocytes % (Manual) Eosinophils % (Manual) Basophils % (Manual) Nucleated RBC % Seg Neutrophils # Seg Neutrophils # Man Lymphocytes # (Manual) Monocytes # (Manual) Eosinophils # (Manual) PT INR Fibrinogen dRVVT Confirm Interp Factor V Activity POC ABG pH POC ABG pCO2 POC ABG pO2 Sodium Potassium 3.1 L Chloride Carbon Dioxide BUN 73 H Creatinine 2.3 H Glucose 112 H POC Glucose 135 H 149 H Lactic Acid Calcium Phosphorus Magnesium Direct Bilirubin AST ALT Alkaline Phosphatase Troponin T C-Reactive Protein Total Protein Albumin Prealbumin Triglycerides Cholesterol LDL Cholesterol Direct HDL Cholesterol Urine pH Urine WBC (Auto) Urine Creatinine Urine Total Protein Vancomycin Trough Rheumatoid Factor Complement C4 Miscellaneous Test Crossmatch 11/02/16 11/02/16 11/03/16 17:42 22:54 06:00 WBC RBC Hgb Hct MCV MCH MCHC RDW Plt Count Lymph % (Auto) [place] % (Auto) Lymph # [place] # Baso # Seg Neutrophils % Seg Neuts % (Manual) Lymphocytes % (Manual) Monocytes % (Manual) Eosinophils % (Manual) Basophils % (Manual) Nucleated RBC % Seg Neutrophils # Seg Neutrophils # Man Lymphocytes # (Manual) Monocytes # (Manual) Eosinophils # (Manual) PT INR Fibrinogen dRVVT Confirm Interp Factor V Activity POC ABG pH POC ABG pCO2 POC ABG pO2 Sodium Potassium Chloride 96.7 L Carbon Dioxide BUN 41 H Creatinine 1.5 H Glucose 145 H POC Glucose 182 H 115 H Lactic Acid Calcium Phosphorus 1.60 L D Magnesium 1.50 L Direct Bilirubin AST ALT Alkaline Phosphatase Troponin T C-Reactive Protein Total Protein Albumin Prealbumin Triglycerides Cholesterol LDL Cholesterol Direct HDL Cholesterol Urine pH Urine WBC (Auto) Urine Creatinine Urine Total Protein Vancomycin Trough Rheumatoid Factor Complement C4 Miscellaneous Test Crossmatch 11/03/16 11/03/16 11/03/16 11:53 17:45 23:37 WBC RBC Hgb Hct MCV MCH MCHC RDW Plt Count Lymph % (Auto) [place] % (Auto) Lymph # [place] # Baso # Seg Neutrophils % Seg Neuts % (Manual) Lymphocytes % (Manual) Monocytes % (Manual) Eosinophils % (Manual) Basophils % (Manual) Nucleated RBC % Seg Neutrophils # Seg Neutrophils # Man Lymphocytes # (Manual) Monocytes # (Manual) Eosinophils # (Manual) PT INR Fibrinogen dRVVT Confirm Interp Factor V Activity POC ABG pH POC ABG pCO2 POC ABG pO2 Sodium Potassium Chloride Carbon Dioxide BUN Creatinine Glucose POC Glucose 131 H 134 H 113 H Lactic Acid Calcium Phosphorus Magnesium Direct Bilirubin AST ALT Alkaline Phosphatase Troponin T C-Reactive Protein Total Protein Albumin Prealbumin Triglycerides Cholesterol LDL Cholesterol Direct HDL Cholesterol Urine pH Urine WBC (Auto) Urine Creatinine Urine Total Protein Vancomycin Trough Rheumatoid Factor Complement C4 Miscellaneous Test Crossmatch 11/04/16 11/04/16 11/04/16 05:41 06:00 12:10 WBC RBC Hgb Hct MCV MCH MCHC RDW Plt Count Lymph % (Auto) [place] % (Auto) Lymph # [place] # Baso # Seg Neutrophils % Seg Neuts % (Manual) Lymphocytes % (Manual) Monocytes % (Manual) Eosinophils % (Manual) Basophils % (Manual) Nucleated RBC % Seg Neutrophils # Seg Neutrophils # Man Lymphocytes # (Manual) Monocytes # (Manual) Eosinophils # (Manual) PT INR Fibrinogen dRVVT Confirm Interp Factor V Activity POC ABG pH POC ABG pCO2 POC ABG pO2 Sodium Potassium Chloride 96.7 L Carbon Dioxide BUN 52 H Creatinine 1.9 H Glucose 126 H POC Glucose 137 H 191 H Lactic Acid Calcium Phosphorus Magnesium Direct Bilirubin AST ALT Alkaline Phosphatase Troponin T C-Reactive Protein Total Protein Albumin Prealbumin Triglycerides Cholesterol LDL Cholesterol Direct HDL Cholesterol Urine pH Urine WBC (Auto) Urine Creatinine Urine Total Protein Vancomycin Trough Rheumatoid Factor Complement C4 Miscellaneous Test Crossmatch 11/04/16 11/05/16 11/05/16 22:57 03:10 05:10 WBC RBC Hgb Hct MCV MCH MCHC RDW Plt Count Lymph % (Auto) [place] % (Auto) Lymph # [place] # Baso # Seg Neutrophils % Seg Neuts % (Manual) Lymphocytes % (Manual) Monocytes % (Manual) Eosinophils % (Manual) Basophils % (Manual) Nucleated RBC % Seg Neutrophils # Seg Neutrophils # Man Lymphocytes # (Manual) Monocytes # (Manual) Eosinophils # (Manual) PT INR Fibrinogen dRVVT Confirm Interp Factor V Activity POC ABG pH POC ABG pCO2 POC ABG pO2 Sodium 136 L Potassium Chloride 97.2 L Carbon Dioxide BUN 32 H Creatinine 1.3 H Glucose 123 H POC Glucose 125 H 108 H Lactic Acid Calcium 7.8 L Phosphorus Magnesium Direct Bilirubin AST ALT Alkaline Phosphatase Troponin T C-Reactive Protein Total Protein Albumin Prealbumin Triglycerides Cholesterol LDL Cholesterol Direct HDL Cholesterol Urine pH Urine WBC (Auto) Urine Creatinine Urine Total Protein Vancomycin Trough Rheumatoid Factor Complement C4 Miscellaneous Test Crossmatch 11/05/16 11/05/16 11/05/16 12:23 13:09 13:25 WBC RBC Hgb Hct MCV MCH MCHC RDW Plt Count Lymph % (Auto) Cedar % (Auto) Lymph # Cedar # Baso # Seg Neutrophils % Seg Neuts % (Manual) Lymphocytes % (Manual) Monocytes % (Manual) Eosinophils % (Manual) Basophils % (Manual) Nucleated RBC % Seg Neutrophils # Seg Neutrophils # Man Lymphocytes # (Manual) Monocytes # (Manual) Eosinophils # (Manual) PT INR Fibrinogen dRVVT Confirm Interp Factor V Activity POC ABG pH POC ABG pCO2 POC ABG pO2 Sodium Potassium Chloride Carbon Dioxide BUN Creatinine Glucose POC Glucose 124 H Lactic Acid Calcium Phosphorus Magnesium Direct Bilirubin AST ALT Alkaline Phosphatase Troponin T C-Reactive Protein 11.40 H Total Protein Albumin Prealbumin Triglycerides Cholesterol LDL Cholesterol Direct HDL Cholesterol Urine pH 9.0 H Urine WBC (Auto) Urine Creatinine Urine Total Protein Vancomycin Trough Rheumatoid Factor Complement C4 Miscellaneous Test Crossmatch 11/05/16 11/05/16 11/06/16 17:54 23:42 04:56 WBC RBC Hgb Hct MCV MCH MCHC RDW Plt Count Lymph % (Auto) Cedar % (Auto) Lymph # Cedar # Baso # Seg Neutrophils % Seg Neuts % (Manual) Lymphocytes % (Manual) Monocytes % (Manual) Eosinophils % (Manual) Basophils % (Manual) Nucleated RBC % Seg Neutrophils # Seg Neutrophils # Man Lymphocytes # (Manual) Monocytes # (Manual) Eosinophils # (Manual) PT INR Fibrinogen dRVVT Confirm Interp Factor V Activity POC ABG pH POC ABG pCO2 POC ABG pO2 Sodium Potassium Chloride Carbon Dioxide BUN Creatinine Glucose POC Glucose 114 H 134 H 120 H Lactic Acid Calcium Phosphorus Magnesium Direct Bilirubin AST ALT Alkaline Phosphatase Troponin T C-Reactive Protein Total Protein Albumin Prealbumin Triglycerides Cholesterol LDL Cholesterol Direct HDL Cholesterol Urine pH Urine WBC (Auto) Urine Creatinine Urine Total Protein Vancomycin Trough Rheumatoid Factor Complement C4 Miscellaneous Test Crossmatch 11/06/16 11/06/16 11/06/16 06:25 06:25 11:56 WBC RBC 2.50 L Hgb 7.3 L Hct 22.5 L MCV MCH MCHC RDW 16.9 H Plt Count Lymph % (Auto) Cedar % (Auto) 10.5 H Lymph # Cedar # 1.1 H Baso # Seg Neutrophils % Seg Neuts % (Manual) Lymphocytes % (Manual) Monocytes % (Manual) Eosinophils % (Manual) Basophils % (Manual) Nucleated RBC % Seg Neutrophils # Seg Neutrophils # Man Lymphocytes # (Manual) Monocytes # (Manual) Eosinophils # (Manual) PT INR Fibrinogen dRVVT Confirm Interp Factor V Activity POC ABG pH POC ABG pCO2 POC ABG pO2 Sodium Potassium 5.1 H Chloride 95.9 L Carbon Dioxide BUN 52 H Creatinine 1.8 H Glucose 117 H POC Glucose 141 H Lactic Acid Calcium Phosphorus Magnesium Direct Bilirubin AST 103 H ALT 77 H Alkaline Phosphatase 285 H Troponin T C-Reactive Protein Total Protein 6.2 L Albumin 1.8 L Prealbumin 0.180 L Triglycerides Cholesterol LDL Cholesterol Direct HDL Cholesterol Urine pH Urine WBC (Auto) Urine Creatinine Urine Total Protein Vancomycin Trough Rheumatoid Factor Complement C4 Miscellaneous Test Crossmatch 11/06/16 11/06/16 11/07/16 17:14 23:52 06:30 WBC RBC Hgb Hct MCV MCH MCHC RDW Plt Count Lymph % (Auto) C[place] % (Auto) Lymph # [place] # Baso # Seg Neutrophils % Seg Neuts % (Manual) Lymphocytes % (Manual) Monocytes % (Manual) Eosinophils % (Manual) Basophils % (Manual) Nucleated RBC % Seg Neutrophils # Seg Neutrophils # Man Lymphocytes # (Manual) Monocytes # (Manual) Eosinophils # (Manual) PT INR Fibrinogen dRVVT Confirm Interp Factor V Activity POC ABG pH POC ABG pCO2 POC ABG pO2 Sodium 135 L Potassium Chloride 95.6 L Carbon Dioxide BUN 70 H Creatinine 2.0 H Glucose 126 H POC Glucose 125 H 130 H Lactic Acid Calcium Phosphorus Magnesium Direct Bilirubin AST ALT Alkaline Phosphatase Troponin T C-Reactive Protein Total Protein Albumin Prealbumin Triglycerides Cholesterol LDL Cholesterol Direct HDL Cholesterol Urine pH Urine WBC (Auto) Urine Creatinine Urine Total Protein Vancomycin Trough Rheumatoid Factor Complement C4 Miscellaneous Test Crossmatch 11/07/16 11/07/16 06:30 09:37 WBC RBC 2.18 L Hgb 6.3 L Hct 19.7 L* MCV MCH MCHC RDW 16.8 H Plt Count Lymph % (Auto) C[place] % (Auto) 10.0 H Lymph # C[place] # 1.0 H Baso # Seg Neutrophils % Seg Neuts % (Manual) Lymphocytes % (Manual) Monocytes % (Manual) Eosinophils % (Manual) Basophils % (Manual) Nucleated RBC % Seg Neutrophils # Seg Neutrophils # Man Lymphocytes # (Manual) Monocytes # (Manual) Eosinophils # (Manual) PT INR Fibrinogen dRVVT Confirm Interp Factor V Activity POC ABG pH POC ABG pCO2 POC ABG pO2 Sodium Potassium Chloride Carbon Dioxide BUN Creatinine Glucose POC Glucose Lactic Acid Calcium Phosphorus Magnesium Direct Bilirubin AST ALT Alkaline Phosphatase Troponin T C-Reactive Protein Total Protein Albumin Prealbumin Triglycerides Cholesterol LDL Cholesterol Direct HDL Cholesterol Urine pH Urine WBC (Auto) Urine Creatinine Urine Total Protein Vancomycin Trough Rheumatoid Factor Complement C4 Miscellaneous Test Crossmatch See Detail Chest x-ray: image reviewed Allied health notes reviewed: RT
[2016-11-07] MEDS ORDERED: LEVAQUIN 750MG/150ML 750 MG/150 ML BAG IV ONE (11:00)
[2016-11-07] MEDS ORDERED: SIMPLE SYRUP FEEDTUBE PRN ×2 (11:24)
--- NOTE | 2016-11-07 14:45 | Progress Note ---
Assessment and Plan - Patient Problems (1) Acute respiratory failure with hypoxia Current Visit: Yes Status: Acute (2) Dislodged gastrostomy tube Current Visit: Yes Status: Acute Plan to address problem: Continue local wound care, ostomy bags for drainage. Continue supportive care. No plan for PEG d/t gastric staple line and intraabdominal spillage until all wounds healed. Continue TF as tolerated. Subjective Date of service: 11/07/16 Patient Reports: Positive: other (unresponsive) Objective Vital Signs - 12hr 11/07/16 11/07/16 11/07/16 03:00 03:30 03:40 Temperature 100.4 F H Pulse Rate 108 H 110 H Pulse Rate [ From Monitor] Respiratory 22 25 H Rate Blood Pressure 143/76 148/86 O2 Sat by Pulse 99 100 Oximetry O2 Sat by Pulse Oximetry [ Assessment] 11/07/16 11/07/16 11/07/16 04:00 04:01 04:30 Temperature Pulse Rate 98 H 102 H Pulse Rate [ 98 H From Monitor] Respiratory 24 24 28 H Rate Blood Pressure 117/58 117/58 O2 Sat by Pulse 100 100 100 Oximetry O2 Sat by Pulse Oximetry [ Assessment] 11/07/16 11/07/16 11/07/16 05:00 05:30 05:45 Temperature Pulse Rate 101 H 110 H 106 H Pulse Rate [ From Monitor] Respiratory 19 23 20 Rate Blood Pressure 128/77 129/84 129/84 O2 Sat by Pulse 100 100 Oximetry O2 Sat by Pulse Oximetry [ Assessment] 11/07/16 11/07/16 11/07/16 06:00 06:30 06:45 Temperature Pulse Rate 107 H Pulse Rate [ From Monitor] Respiratory 21 20 Rate Blood Pressure 140/80 149/77 O2 Sat by Pulse 92 Oximetry O2 Sat by Pulse Oximetry [ Assessment] 11/07/16 11/07/16 11/07/16 07:00 07:30 08:00 Temperature Pulse Rate 95 H 103 H 102 H Pulse Rate [ From Monitor] Respiratory 22 38 H 37 H Rate Blood Pressure 144/76 150/82 151/80 O2 Sat by Pulse 100 96 95 Oximetry O2 Sat by Pulse Oximetry [ Assessment] 11/07/16 11/07/16 11/07/16 08:02 08:30 09:00 Temperature Pulse Rate 100 H 102 H 102 H Pulse Rate [ From Monitor] Respiratory 29 H 36 H Rate Blood Pressure 151/80 155/82 158/83 O2 Sat by Pulse 95 96 95 Oximetry O2 Sat by Pulse 95 Oximetry [ Assessment] 11/07/16 11/07/16 11/07/16 09:30 10:00 10:30 Temperature Pulse Rate 104 H 105 H 106 H Pulse Rate [ From Monitor] Respiratory 39 H 36 H 38 H Rate Blood Pressure 152/84 158/86 160/91 O2 Sat by Pulse 95 97 96 Oximetry O2 Sat by Pulse Oximetry [ Assessment] 11/07/16 11/07/16 10:38 12:53 Temperature Pulse Rate 108 H 114 H Pulse Rate [ From Monitor] Respiratory Rate Blood Pressure 160/91 167/89 O2 Sat by Pulse Oximetry O2 Sat by Pulse Oximetry [ Assessment] - General physical appearance no distress - Abdomen soft, other (+ drainage from RLQ port site more then from RUQ or G tube site- ostomy bags in place to all wounds) - Labs 11/07/16 06:30 11/07/16 06:30 Diabetes panel 11/07/16 Range/Units 06:30 Sodium 135 L (137-145) mmol/L Potassium 5.0 (3.6-5.0) mmol/L Chloride 95.6 L (98-107) mmol/L Carbon Dioxide 25 (22-30) mmol/L BUN 70 H (7-17) mg/dL Creatinine 2.0 H (0.7-1.2) mg/dL Glucose 126 H (65-100) mg/dL Calcium 8.4 (8.4-10.2) mg/dL Calcium panel 11/07/16 Range/Units 06:30 Calcium 8.4 (8.4-10.2) mg/dL Phosphorus 4.40 (2.5-4.5) mg/dL Pituitary panel 11/07/16 Range/Units 06:30 Sodium 135 L (137-145) mmol/L Potassium 5.0 (3.6-5.0) mmol/L Chloride 95.6 L (98-107) mmol/L Carbon Dioxide 25 (22-30) mmol/L BUN 70 H (7-17) mg/dL Creatinine 2.0 H (0.7-1.2) mg/dL Glucose 126 H (65-100) mg/dL Calcium 8.4 (8.4-10.2) mg/dL Adrenal panel 11/07/16 Range/Units 06:30 Sodium 135 L (137-145) mmol/L Potassium 5.0 (3.6-5.0) mmol/L Chloride 95.6 L (98-107) mmol/L Carbon Dioxide 25 (22-30) mmol/L BUN 70 H (7-17) mg/dL Creatinine 2.0 H (0.7-1.2) mg/dL Glucose 126 H (65-100) mg/dL Calcium 8.4 (8.4-10.2) mg/dL
[2016-11-07] MEDS: DURAGESIC TD SCH (15:36)
[2016-11-07] MEDS: VANCOMYCIN/NS 1 GM/250 ML 1 GM/250 ML BAG IV SCH (21:45)
[2016-11-08] MEDS: LOPRESSOR PO SCH ×4 (06:41→23:25)
[2016-11-08] MEDS: HumuLIN R SUB-Q SCH ×4 (06:42→17:21)
--- NOTE | 2016-11-08 08:42 | Progress Note ---
Assessment and Plan Assessment and plan: 46-year-old woman with a history of hypertension, diabetes, asthma, hyperlipidemia, chronic kidney disease and anxiety , who was brought in by family because, she couldn't get her words out, her face was also twisted, she was admitted for acute CVA and accelerated hypertension, she had a hx of poor adherence with her medications, and uncontrolled htn. Patient's blood pressure systolically on admission was noted be greater than 260. TPA was started but this was discontinued after 5 minutes because her blood pressure became uncontrolled. The TPA was not initiated again because the patient was outside the TPA window. Fever Reconsult infectious disease, has recently completed antibiotics Spoke with Dr. Eli of infectious disease. chest x-ray, blood cultures were unremarkable, urine cx growing E cloacea, ID and sens to follow,. fup blood cultures, patient does have a PICC line and a vasc cath, this may be possible etiology of infection, may need to consider exchanging them -still having high fevers, continue levaquin and vancomycin -Severe Sepsis with septic shock, recurrent. Patient with multiple episodes of sepsis. Initial episode due to presumed aspiration pneumonia and septic episode on 09/23 from candidemia then a third episode from peritonitis from gastric perforation from dislodged PEG , there was an abscess in the abdomen present at that time that was draining pus. +/-UTI. The latest episode was related to surgical site infection. Fevers have now resolved. Continue antibiotics per ID. Surgical wound infection/gram-negative sepsis/candidemia/peritonitis PEG has been removed Has already completed 14 days of abx and antifungals, ID input appreciated She will need to be on tube feeds through NG tube for a month, and then either a gastrostomy or jejunostomy tube replaced after her GI wounds have healed and infection is cleared -continue wound care to ostomy sites JUANITA Likely due to vasomotor nephropathy and ATN given sepsis Nephrology input appreciated, continue hemodialysis Acute CVA with infarct. sp TPA Continue neuro checks. Neurology input appreciated, CT shows continued evolution of left MCA infarct with slight mass effect and edema, and there is no hemorrhage - PRINCE showed hyperdynamic with ef of 75%, neither clot nor septal defect seen - MRA Brain shows near complete occlusion of M2 and M3 of the left MCA - Repeat CT scan done on 09/11, shows stable findings - carotid doppler negative - Echo shows preserved systolic function but does show some left ventricular diastolic dysfunction - continue asa and statin for secondary ppx Persistent vegetative state This patient's needs placement at either hospice or SNF -She was denied for LTACH Acute hypoxic respiratory failure requiring MV >96hrs Status post tracheostomy, continue to wean off vent, has been tolerating T piece Nosocomial acquired aspiration pneumonia/sepsis/UTI Completed a course of antibiotics Asthma/COPD exacerbation Patient is on antibiotics, steroids and nebs, continue MV, intubated Acute Toxic Metabolic encephalopathy. Likely multifactorial, mostly secondary to evolution of CVA for restlessness, we checked troponin, EKG, CXR which were all negative Hypertensive Emergency Continue current medications Paroxysmal atrial fibrillation with rapid ventricular rate, failed cardioversion Continue current medications, Not a candidate for anticoagulation secondary to anemia thrombocytopenia and massive CVA Hypokalemia/Hypomagnesemia/hypophosphatemia. Replete electrolytes as needed. Diabetes type 2. Continue sliding-scale regular insulin and Accu-Cheks. Hyperlipidemia. Continue statin Nutrition continue tube feeds Anemia requiring multiple transfusions/acute blood loss Has received 13 units of PRBC, , continue to transfuse to keep Hg above 7 Case discussed with the patient's family and pulmonology her POA is her Brother, Jam [phone] Dispo. Very poor prognosis. Plan for SNIF placement, she was ready denied by LTAC The high probability of a clinically significant, sudden or life threatening deterioration of the [cardiovascular and neurological] system(s) required my full and direct attention, intervention and personal management. The aggregate critical care time was [33] minutes. This time is in addition to time spent performing reported procedures but includes the following: [] Data Review and interpretation [] Patient assessment and monitoring of vital signs [] Documentation [] Medication orders and management History Interval history: She opens her eyes, but does not obey commands. Has tracheostomy in place still having fever, tolerating T piece Hospitalist Physical - Physical exam Narrative exam: General: Opens eyes, no distress HEENT: MMM, EOMI cardiac: S1-S2 heard lungs: ventilated breath sounds abdomen: soft, nontender, nondistended bowel sounds positive multiple ostomy bags noted, drainage is reduced extremities: no edema clubbing or cyanosis Skin: no rash or lesion Neuro: Status post tracheostomy, opens eyes, does not obey commands, right- sided weakness - Constitutional Vitals: Temp Pulse Resp BP Pulse Ox 100.1 F H 104 H 24 124/55 95 11/08/16 07:38 11/08/16 08:00 11/08/16 06:31 11/08/16 06:41 11/08/16 08:00 General appearance: Present: no acute distress, obese, other (on vent, non- responsive) Results - Labs CBC & Chem 7: 11/08/16 13:03 11/07/16 06:30 Labs: Laboratory Last Values WBC 9.6 K/mm3 (4.5-11.0) 11/07/16 06:30 RBC 2.18 M/mm3 (3.65-5.03) L 11/07/16 06:30 Hgb 6.3 gm/dl (10.1-14.3) L 11/07/16 06:30 Hct 19.7 % (30.3-42.9) L* 11/07/16 06:30 MCV 91 fl (79-97) 11/07/16 06:30 MCH 29 pg (28-32) 11/07/16 06:30 MCHC 32 % (30-34) 11/07/16 06:30 RDW 16.8 % (13.2-15.2) H 11/07/16 06:30 Plt Count 249 K/mm3 (140-440) 11/07/16 06:30 Lymph % (Auto) 23.6 % (13.4-35.0) 11/07/16 06:30 Calvert % (Auto) 10.0 % (0.0-7.3) H 11/07/16 06:30 Eos % (Auto) 2.1 % (0.0-4.3) 11/07/16 06:30 Baso % (Auto) 0.8 % (0.0-1.8) 11/07/16 06:30 Lymph # 2.3 K/mm3 (1.2-5.4) 11/07/16 06:30 Calvert # 1.0 K/mm3 (0.0-0.8) H 11/07/16 06:30 Eos # 0.2 K/mm3 (0.0-0.4) 11/07/16 06:30 Baso # 0.1 K/mm3 (0.0-0.1) 11/07/16 06:30 Add Manual Diff Complete 10/27/16 06:30 Total Counted 100 10/27/16 06:30 Seg Neutrophils % 63.5 % (40.0-70.0) 11/07/16 06:30 Seg Neuts % (Manual) 78.0 % (40.0-70.0) H 10/27/16 06:30 Band Neutrophils % 0 % 10/27/16 06:30 Lymphocytes % (Manual) 14.0 % (13.4-35.0) 10/27/16 06:30 Reactive Lymphs % (Man) 0 % 10/27/16 06:30 Monocytes % (Manual) 7.0 % (0.0-7.3) 10/27/16 06:30 Eosinophils % (Manual) 0 % (0.0-4.3) 10/27/16 06:30 Basophils % (Manual) 1.0 % (0.0-1.8) 10/27/16 06:30 Metamyelocytes % 0 % 10/27/16 06:30 Myelocytes % 0 % 10/27/16 06:30 Promyelocytes % 0 % 10/27/16 06:30 Blast Cells % 0 % 10/27/16 06:30 Nucleated RBC % 2.0 % (0.0-0.9) H 10/27/16 06:30 Seg Neutrophils # 6.1 K/mm3 (1.8-7.7) 11/07/16 06:30 Seg Neutrophils # Man 10.8 K/mm3 (1.8-7.7) H 10/27/16 06:30 Band Neutrophils # 0.0 K/mm3 10/27/16 06:30 Lymphocytes # (Manual) 1.9 K/mm3 (1.2-5.4) 10/27/16 06:30 Abs React Lymphs (Man) 0.0 K/mm3 10/27/16 06:30 Monocytes # (Manual) 1.0 K/mm3 (0.0-0.8) H 10/27/16 06:30 Eosinophils # (Manual) 0.0 K/mm3 (0.0-0.4) 10/27/16 06:30 Basophils # (Manual) 0.1 K/mm3 (0.0-0.1) 10/27/16 06:30 Metamyelocytes # 0.0 K/mm3 10/27/16 06:30 Myelocytes # 0.0 K/mm3 10/27/16 06:30 Promyelocytes # 0.0 K/mm3 10/27/16 06:30 Blast Cells # 0.0 K/mm3 10/27/16 06:30 Pathologist Review 09/13/16 04:00 WBC Morphology Not Reportable 10/27/16 06:30 Hypersegmented Neuts Not Reportable 10/27/16 06:30 Hyposegmented Neuts Not Reportable 10/27/16 06:30 Hypogranular Neuts Not Reportable 10/27/16 06:30 Smudge Cells Not Reportable 10/27/16 06:30 Toxic Granulation Not Reportable 10/27/16 06:30 Toxic Vacuolation Not Reportable 10/27/16 06:30 Dohle Bodies Not Reportable 10/27/16 06:30 Pelger-Huet Anomaly Not Reportable 10/27/16 06:30 Jasmina Rods Not Reportable 10/27/16 06:30 Platelet Estimate Cons 10/27/16 06:30 Clumped Platelets Not Reportable 10/27/16 06:30 Plt Clumps, EDTA Not Reportable 10/27/16 06:30 Large Platelets Few 10/27/16 06:30 Giant Platelets Not Reportable 10/27/16 06:30 Platelet Satelliting Not Reportable 10/27/16 06:30 Plt Morphology Comment Not Reportable 10/27/16 06:30 RBC Morphology Not Reportable 10/27/16 06:30 Dimorphic RBCs Not Reportable 10/27/16 06:30 Polychromasia Not Reportable 10/27/16 06:30 Hypochromasia Not Reportable 10/27/16 06:30 Poikilocytosis Not Reportable 10/27/16 06:30 Anisocytosis 1+ 10/27/16 06:30 Microcytosis Not Reportable 10/27/16 06:30 Macrocytosis Not Reportable 10/27/16 06:30 Spherocytes Not Reportable 10/27/16 06:30 Pappenheimer Bodies Not Reportable 10/27/16 06:30 Sickle Cells Not Reportable 10/27/16 06:30 Target Cells Not Reportable 10/27/16 06:30 Tear Drop Cells Not Reportable 10/27/16 06:30 Ovalocytes Not Reportable 10/27/16 06:30 Stomatocytes Few 10/06/16 03:50 Helmet Cells Not Reportable 10/27/16 06:30 Monet-Duson Bodies Not Reportable 10/27/16 06:30 [place] Rings Not Reportable 10/27/16 06:30 Stratton Cells Not Reportable 10/27/16 06:30 Bite Cells Not Reportable 10/27/16 06:30 Crenated Cell Not Reportable 10/27/16 06:30 Elliptocytes Not Reportable 10/27/16 06:30 Acanthocytes (Spur) Not Reportable 10/27/16 06:30 Rouleaux Not Reportable 10/27/16 06:30 Hemoglobin C Crystals Not Reportable 10/27/16 06:30 Schistocytes Not Reportable 10/27/16 06:30 Malaria parasites Not Reportable 10/27/16 06:30 ESR > 140.0 mm/Hr (0-20) 09/08/16 11:48 Jun Bodies Not Reportable 10/27/16 06:30 Hem Pathologist Commnt No 10/27/16 06:30 PT 19.0 Sec. (12.2-14.9) H 10/09/16 03:45 INR 1.51 (0.87-1.13) H 10/09/16 03:45 APTT 33.0 Sec. (24.2-36.6) 10/09/16 03:45 Thrombin Time 16.8 Sec. (15.1-19.6) 09/03/16 00:10 Fibrinogen 750 mg/dl (211-480) H 09/08/16 11:48 Lupus Anticoagulant see below 09/12/16 09:59 LA PTT Baseline See scanned report 09/12/16 09:59 dRVVT Confirm Interp Positive (Negative) H 09/12/16 09:59 dRVVT Screen 50:50 See scanned report 09/12/16 09:59 dRVVT Mix Interpret See scanned report 09/12/16 09:59 Protein C Antigen 122 % (70-140) 09/08/16 15:35 Free Protein S 97 % normal (50-147) 09/08/16 15:35 Total Protein S 109 % (70-140) 09/08/16 15:35 Antithrombin III Ag 100 % (80-120) 09/08/16 15:35 Heparin Anti-Xa, Unfract Negative (Negative) 09/29/16 13:35 Factor V Activity 182 % (65-150) H 09/08/16 15:35 POC ABG pH 7.523 (7.35-7.45) H 11/07/16 21:26 POC ABG pCO2 34.6 (35-45) L 11/07/16 21:26 POC ABG pO2 53 (80-105) L 11/07/16 21:26 POC ABG HCO3 28.4 11/07/16 21:26 POC ABG Total CO2 29 11/07/16 21:26 POC ABG O2 Sat 90 11/07/16 21:26 POC ABG Base Excess 6 11/07/16 21:26 FiO2 28 % 11/07/16 21:26 Sodium 135 mmol/L (137-145) L 11/07/16 06:30 Potassium 5.0 mmol/L (3.6-5.0) 11/07/16 06:30 Chloride 95.6 mmol/L (98-107) L 11/07/16 06:30 Carbon Dioxide 25 mmol/L (22-30) 11/07/16 06:30 Anion Gap 19 mmol/L 11/07/16 06:30 BUN 70 mg/dL (7-17) H 11/07/16 06:30 Creatinine 2.0 mg/dL (0.7-1.2) H 11/07/16 06:30 Estimated GFR 33 ml/min 11/07/16 06:30 BUN/Creatinine Ratio 35.00 % 11/07/16 06:30 Glucose 126 mg/dL (65-100) H 11/07/16 06:30 POC Glucose 99 (70-105) 11/08/16 06:09 Osmolality 351 Mosm/kg 09/16/16 11:47 Lactic Acid 4.50 mmol/L (0.7-2.0) H* 09/28/16 07:25 Calcium 8.4 mg/dL (8.4-10.2) 11/07/16 06:30 Phosphorus 4.40 mg/dL (2.5-4.5) 11/07/16 06:30 Magnesium 2.20 mg/dL (1.7-2.3) 11/07/16 06:30 Total Bilirubin 0.20 mg/dL (0.1-1.2) 11/06/16 06:25 Direct Bilirubin 0.3 mg/dL (0-0.2) H 10/10/16 05:00 Indirect Bilirubin 0.1 mg/dL 10/10/16 05:00 AST 103 units/L (5-40) H 11/06/16 06:25 ALT 77 units/L (7-56) H 11/06/16 06:25 Alkaline Phosphatase 285 units/L (35-129) H 11/06/16 06:25 Ammonia 27.0 umol/L (25-60) 09/07/16 08:37 Total Creatine Kinase 121 units/L (30-135) 09/29/16 20:12 CK-MB (CK-2) < 1.0 ng/mL (0.0-4.0) 09/29/16 20:12 CK-MB (CK-2) Rel Index 0.8 (0-4) 09/29/16 20:12 Troponin T 0.204 ng/mL (0.00-0.029) H* 09/29/16 20:12 C-Reactive Protein 11.40 mg/dL (0.00-1.30) H 11/05/16 13:25 Total Protein 6.2 g/dL (6.3-8.2) L 11/06/16 06:25 Albumin 1.8 g/dL (3.9-5) L 11/06/16 06:25 Albumin/Globulin Ratio 0.4 % 11/06/16 06:25 Prealbumin 0.180 g/L (0.200-0.400) L 11/06/16 06:25 Triglycerides 137 mg/dL (2-149) 09/29/16 20:12 Cholesterol 31 mg/dL (50-199) L 09/29/16 20:12 LDL Cholesterol Direct 4 mg/dL (50-130) L 09/29/16 20:12 HDL Cholesterol 3 mg/dL (40-59) L 09/29/16 20:12 Cholesterol/HDL Ratio 10.33 % 09/29/16 20:12 Angiotensin Convert Enz See scanned report 09/08/16 11:48 Renin 0.99 ng/mL/h (0.25-5.82) 10/07/16 10:56 Aldosterone <1 ng/dL () 10/07/16 10:56 Aldosterone/Renin Dir see below 10/07/16 10:56 Serotonin Release Assay See scanned report 09/29/16 13:35 TSH 1.010 mlU/mL (0.270-4.200) 09/07/16 08:37 HCG, Qual Negative (Negative) 09/03/16 00:10 Urine Color Yellow (Yellow) 11/05/16 13:09 Urine Turbidity Clear (Clear) 11/05/16 13:09 Urine pH 9.0 (5.0-7.0) H 11/05/16 13:09 Ur Specific Wendel 1.011 (1.003-1.030) 11/05/16 13:09 Urine Protein 100 mg/dl mg/dL (Negative) 11/05/16 13:09 Urine Glucose (UA) Neg mg/dL (Negative) 11/05/16 13:09 Urine Ketones Neg mg/dL (Negative) 11/05/16 13:09 Urine Blood Neg (Negative) 11/05/16 13:09 Urine Nitrite Neg (Negative) 11/05/16 13:09 Urine Bilirubin Neg (Negative) 11/05/16 13:09 Urine Urobilinogen < 2.0 mg/dL (<2.0) 11/05/16 13:09 Ur Leukocyte Esterase Neg (Negative) 11/05/16 13:09 Urine WBC (Auto) 4.0 /HPF (0.0-6.0) 11/05/16 13:09 Urine RBC (Auto) 1.0 /HPF (0.0-6.0) 11/05/16 13:09 U Epithel Cells (Auto) 1.0 /HPF (0-13.0) 10/07/16 18:30 Urine Bacteria (Auto) 4+ /HPF (Negative) 11/05/16 13:09 Urine WBC Clumps 2+ /HPF 09/07/16 02:47 Hyaline Casts 4 /LPF 09/07/16 02:47 Urine Mucus Few /HPF 10/07/16 18:30 Urine Yeast (Budding) 3+ /HPF 10/07/16 18:30 Urine Eosinophils None seen (None Seen) 09/07/16 16:00 Urine Total Volume TNR 10/29/16 07:45 Urine Creatinine TNR 10/29/16 07:45 Height (in) TNR 10/29/16 07:45 Weight (lb) TNR 10/29/16 07:45 Creatinine Clearance TNR 10/29/16 07:45 Urine Sodium 36 mEq/L 09/16/16 19:19 Urine Total Protein 16 mg/dL (5-11.8) H 09/16/16 19:19 Vancomycin Trough 2.3 ug/mL (5.0-20.0) L 09/21/16 13:00 Random Vancomycin 17.0 ug/mL (0-40.0) 10/20/16 06:00 Urine Opiates Screen Presumptive negative 09/03/16 15:11 Urine Methadone Screen Presumptive positive 09/03/16 15:11 Ur Barbiturates Screen Presumptive positive 09/03/16 15:11 Ur Phencyclidine Scrn Presumptive negative 09/03/16 15:11 Ur Amphetamines Screen Presumptive negative 09/03/16 15:11 U Benzodiazepines Scrn Presumptive negative 09/03/16 15:11 Urine Cocaine Screen Presumptive negative 09/03/16 15:11 U Marijuana (THC) Screen Presumptive positive 09/03/16 15:11 Drugs of Abuse Note Disclamer 09/03/16 15:11 Rheumatoid Factor 24 IU/ml (0-13) H 09/08/16 11:48 SAHIL Screen Negative (Negative) 09/07/16 09:20 Proteinase 3 (PR3) Ab <1.0 AI (<1.0) 09/07/16 09:20 Myeloperoxidase Ab <1.0 AI (<1.0) 09/07/16 09:20 Sjogren's Antibody <1.0 AI (<1.0) 09/08/16 15:35 Scl-70 Scleroderma Ab <1.0 AI (<1.0) 09/08/16 15:35 Centromere B Antibody <1.0 AI (<1.0) 09/08/16 12:02 Heparin-induced Plt Ab Negative (Negative) 09/29/16 13:35 UF Heparin High Dose 11 % Release 09/29/16 13:35 SUDHIR UFH Low Dose 0.1 6 % Release 09/29/16 13:35 SUDHIR UFH Low Dose 0.5 8 % Release 09/29/16 13:35 Cardiolipid IgG Ab <14 GPL (<=14) 09/12/16 09:59 Cardiolipid IgA Ab <11 APL (<=11) 09/12/16 09:59 Cardiolipid IgM Ab <12 MPL (<=12) 09/12/16 09:59 Complement C3 148 mg/dL (90-180) 09/07/16 09:20 Complement C4 58 mg/dL (16-47) H 09/07/16 09:20 RPR Nonreactive (Nonreactive) 09/08/16 11:48 Hepatitis A IgM Ab Non-reactive (NonReactive) 09/24/16 14:40 Hep Bs Antigen Non-reactive (Negative) 09/24/16 14:40 Hep B Core IgM Ab Non-reactive (NonReactive) 09/24/16 14:40 Hepatitis C Antibody Non-reactive (NonReactive) 09/24/16 14:40 HIV 1&2 Antibody Rapid Non react (Non React) 09/08/16 11:48 HIV P24 Antigen Non react (Non React) 09/08/16 11:48 Miscellaneous Test Flexitest 1 H 11/05/16 13:25 Blood Type A POSITIVE 11/07/16 09:37 Antibody Screen Negative 11/07/16 09:37 DELORIS Antibody Screen Negative 09/25/16 10:30 Crossmatch See Detail 11/07/16 09:37
--- NOTE | 2016-11-08 09:40 | Progress Note ---
Assessment and Plan Assessment: 1) Recurrent Sepsis: new episode ? unclear source ? line infection -S/p multiple episodes of sepsis - initially due to presumed aspiration pneumonia, then septic episode on 09/23 from Candidemia. Then from - peritonitis from gastric perforation +/- UTI. Latest episode was due to abdominal wall abscess at surgical site. -CRP 19 --> 22 -->11 -Procalcitonin=24 --> 16 --> 4.3 --> 1.8 on 10/05 2) History of Peritonitis: from gastric perforation from dislodged PEG with significant ascites -S/P exlap, repair of gastric perforation with wedge gastrectomy, abdominal washout, drain placement on 10/05. 3) History of Candidemia: -Blood cultures positive for Silvia albicans on 09/23 -Blood cultures positive on 09/25 -Blood cultures negative on 09/30 -PICC line changed on 10/03 -Source ? gastric perf (PEG placed on 09/20) +/- TPN +/- central lines -TTE 10/07 no vegetations -PICC exchanged on 10/03 -fully treated with micafungin for 14 days last day 10/13 4) History CA-UTI s/p gutierrez exchanged 5) Diarrhea - ? etiology ? antibiotic-induced, not better 6) Initial presumed aspiration pneumonia 7) Respiratory failure s/p trach 8) Recent CVA-left MCA CVA 9) Uncontrolled HTN 10) Acute on CKD 11) Extensive back skin peeling ? burn from gastric secretions. Doubt allergic reaction - resolved 12) Severe anemia; ? from GI bleed 13) Recent abdominal wall abscess at surgical site-treated Plan: -f/u blood, urine and sputum cx -continue levaquin and vancomycin - renally dosed -monitor fever Thank you Dr Pierre for your consultation, will follow up with you. Pauline Carias MD Infectious Diseases Specialist [facility] [phone] O [phone] Subjective Date of service: 11/08/16 Principal diagnosis: Acute resp failure on MVS; S/P Acute CVA; Acute Encephalopathy; JUANITA Interval history: Interval history: Still low grade fever 100.1 Microbiology: Blood cultures: 09/13 neg 09/23 Silvia albicans 09/25 Silvia 09/29 neg 10/07 neg 11/05 neg 11/07 ngtd Urine cultures: 09/10 neg 09/13 neg 8/4 10-100K mixed species 10/07 neg 11/05 pending Respiratory cultures: 09/07 neg 09/13 neg 8 neg 11/07 pending Wound cultures: 10/17 abd wall wound purulence + Pseudomonas MDR Stool cultures: cath tip 11/07 + Current Antimicrobials: levaquin 11/05 vancomyin 11/07 Previous Antimicrobials: Zosyn 10/07 Vancomycin PO 10/01 Metronidazole 09/25 Micafungin 09/27-10/13 Meropenem 10/10 Vanco 10/17 zosyn 10/21 fluconazole 10/19 cefepime 10/29 Objective - Exam Narrative Exam: General appearance: somnolent, non verbal, on the vent via trach no following commands Eyes: anicteric sclera, moist conjunctivae; PERRLA HENT: Atraumatic; oropharynx limited; Normal external ears. +NGT with greenish secretion Neck: +trach in place; supple, no thyromegaly or lymphadenopathy Lungs: CTA CV: tachycardic Abdomen: Soft, non-tender, +drain with purulent drainage, + diarrhea via rectal tube leaking. +old PEG site no drainage. Right sided Surgical site x 2 with ostomy bag draining thick yellowish secretion Extremities: +peripheral edema no extremity lymphadenopathy Skin: sacral area wounds superficial no purulence Psych: somnolent . Neuro: alert non verbal on the vent. Lines: left arm PICC placed on 10/03 - Constitutional Vitals: Vital Signs Temp Pulse Resp BP Pulse Ox 100.1 F H 104 H 24 124/55 98 11/08/16 07:38 11/08/16 08:00 11/08/16 06:31 11/08/16 06:41 11/08/16 08:57 Temperature -Last 24 Hours Temperature 100.1 F Temperature 99.9 F Temperature 100.3 F Temperature 99.9 F Temperature 98.8 F Temperature 98.6 F Temperature 98.6 F Temperature 98.6 F Temperature 98.6 F Temperature 98.8 F - Labs CBC & Chem 7: 11/07/16 06:30 11/07/16 06:30 Labs: Abnormal lab results 10/24/16 11/05/16 11/07/16 Range/Units Unknown 13:25 09:37 POC ABG pH (7.35-7.45) POC ABG pCO2 (35-45) POC ABG pO2 (80-105) POC Glucose (70-105) Miscellaneous Test Flexitest 1 H Crossmatch See Detail See Detail 11/07/16 11/07/16 11/07/16 Range/Units 12:52 18:51 21:26 POC ABG pH 7.523 H (7.35-7.45) POC ABG pCO2 34.6 L (35-45) POC ABG pO2 53 L (80-105) POC Glucose 142 H 155 H (70-105) Miscellaneous Test Crossmatch 11/07/16 Range/Units 21:34 POC ABG pH (7.35-7.45) POC ABG pCO2 (35-45) POC ABG pO2 (80-105) POC Glucose 113 H (70-105) Miscellaneous Test Crossmatch
[2016-11-08] MEDS: TYLENOL FEEDTUBE PRN (10:05)
[2016-11-08] MEDS: COZAAR PO SCH (10:25)
[2016-11-08] MEDS: PROTONIX FEEDTUBE SCH (10:26)
--- NOTE | 2016-11-08 10:40 | Progress Note ---
Assessment and Plan (1) Acute respiratory failure with hypoxia Current Visit: Yes Status: Acute Plan to address problem: - continue aspiration precautions - continue to wean oxygen for MAP > 94% - continue bronchodilators and pulmonary toilet - s/p tracheostomy - resumed scopolamine - continue T-piece RTC as tolerated again today - ABG's prn at this point for increased work of breathing or other resp distress (2) Acute CVA (cerebrovascular accident) Current Visit: Yes Status: Acute Plan to address problem: - out of tpA window (initially stopped due to uncontrolled HTN) - Left MCA teritory stroke with some midline shift on last CT - seen by neurology and prognosis for recovery of mental status guarded to poor - optimizing secondary prevention modalities now (BP, lipid anti-platelet therapy) - off systemic steroids now (started earlier for edema) - clinically about the same (3) Hypertensive emergency Current Visit: Yes Status: Acute Plan to address problem: - stopped all antihypertensives while septic prior - BP's running high today - on scheduled IV metoprolol with prn IV hydralazine - clonidine patch was placed (0.1mg patch) but BP's still high - increased patch dosing to 0.2mg - will schedule oral amlodipine - added prn labetalol - remains on clonidine patch + cozaar now (4) Obesity (BMI 35.0-39.9 without comorbidity) Current Visit: Yes Status: Chronic Plan to address problem: - now at goal rate on tube feeding - stopped TPN (5) Type 2 diabetes mellitus Current Visit: Yes Status: Chronic Qualifiers: Diabetes mellitus complication status: D Diabetes mellitus complication detail: D Diabetic retinopathy severity: D Proliferative retinopathy type: P Diabetes mellitus macular edema: D Diabetes mellitus superintendent terminal insulin use : D Laterality: L Chronic kidney disease stage: C Plan to address problem: - continue SSI - discontinued lantus prior re: hypoglycemia - target BG's <180 mg/dl (6) Leukocytosis (leucocytosis) Current Visit: Yes Status: Acute Qualifiers: Leukocytosis type: leukemoid reaction Qualified Code(s): D72.823 - Leukemoid reaction Plan to address problem: - completed cancidas and de-escalate per ID recs - leucocytosis persistent but now trending down - on zosyn and diflucan now - wound cultures growing pseudomonas and dann (7) Agitation Current Visit: Yes Status: Acute Plan to address problem: - prn sedation / analgesia - tapered off seroquel for now (8) Atrial fibrillation Current Visit: Yes Status: Acute Qualifiers: Atrial fibrillation type: A Plan to address problem: - failed cardioversion earlier - cardiology evaluation ongoing - back in A-fib - off amiodarone - p.o. metoprolol scheduled at 50mg q6h (9) JUANITA (acute kidney injury) Current Visit: Yes Status: Acute Plan to address problem: - on Dialysis now - continue HD/UF per nephrology recommendations - s/p tunnelled vas-cath - HD/UF (10) Pyrexia of unknown origin Current Visit: Yes Status: Acute Plan to address problem: - dopplers negative for DVT - continue to treat with Anti-infectives (11) Severe sepsis Current Visit: Yes Status: Acute Plan to address problem: - resume vasopressors for MAP < 60mmHg not responsive to volume - all central vascular access has been discontinued after fungemia reported - care plan formulated with ID input - BC's from 09/27/16 growing in 1of 2 but still no ID yet - complete micafungin per ID recs and stop date - wound care nurse also managing back wounds - clinically stable and hemodynamically improved - bo to RLQ incision removed and wound drained and packed - on contact precautions for MDRO PSAR - vascath pulled and permacath in use (12) Emesis Current Visit: Yes Status: Acute Qualifiers: Vomiting type: V Vomiting Intractability: V Nausea presence: N Plan to address problem: - s/p surgical repair of gastric perforation - continue TPN for now - follow surgery recommendations re: feeding and new PEG tube - now tolerating tube feeds at goal rate (13) Dysphagia, oropharyngeal Current Visit: Yes Status: Acute Plan to address problem: - discussed with surgeon and she will be best served with continued treatment with anti-infectives as well as time for the GI tract and her wounds to heal before replacing the PEG tube - continue DHT feeding (14) Discharge planning issues Current Visit: Yes Status: Acute Plan to address problem: - she remains critically ill on life sustaining interventions including MVS and at risk for further acute deterioration including - plan is to see if patient can transfer to LTAC in interim and be brought back for PEG placement (currently refused at LTAC) - if can stay off MVS then can transfer to medical floor shortly .....30' CCT ....superintendent terminal prognosis is guarded Subjective Date of service: 11/08/16 Principal diagnosis: Acute resp failure on MVS; S/P Acute CVA; Acute Encephalopathy; JUANITA Interval history: Seen and examined at bedside; 24 hour events reviewed; nursing and respiratory care staff consulted; no adverse overnight events reported to me; did not tolerate t-piece overnight and was rested on MVS; AMS is persistent; still draining from wound sites; low grade fevers also; thankfully tolerating tube feeds well so far Objective Vital Signs - 12hr 11/07/16 11/07/16 11/07/16 22:49 23:00 23:30 Temperature Pulse Rate 113 H 117 H 118 H Pulse Rate [ From Monitor] Respiratory 24 24 23 Rate Blood Pressure 162/93 158/92 157/97 O2 Sat by Pulse 99 99 99 Oximetry O2 Sat by Pulse Oximetry [ Assessment] 11/07/16 11/07/16 11/08/16 23:32 23:33 00:00 Temperature 100.3 F H Pulse Rate 118 H 116 H 116 H Pulse Rate [ 109 H From Monitor] Respiratory 22 Rate Blood Pressure 157/97 157/97 141/84 O2 Sat by Pulse 99 99 Oximetry O2 Sat by Pulse 96 Oximetry [ Assessment] 11/08/16 11/08/16 11/08/16 00:30 01:00 01:30 Temperature Pulse Rate 110 H 109 H 107 H Pulse Rate [ From Monitor] Respiratory 24 25 H 19 Rate Blood Pressure 116/80 133/84 128/71 O2 Sat by Pulse 99 99 99 Oximetry O2 Sat by Pulse Oximetry [ Assessment] 11/08/16 11/08/16 11/08/16 02:00 02:31 03:01 Temperature Pulse Rate 110 H 111 H 129 H Pulse Rate [ From Monitor] Respiratory 23 23 28 H Rate Blood Pressure 137/81 153/93 153/93 O2 Sat by Pulse 99 100 Oximetry O2 Sat by Pulse Oximetry [ Assessment] 11/08/16 11/08/16 11/08/16 03:31 04:00 04:31 Temperature 99.9 F H Pulse Rate 115 H 115 H 116 H Pulse Rate [ 114 H From Monitor] Respiratory 23 24 22 Rate Blood Pressure 144/81 148/103 144/81 O2 Sat by Pulse 96 99 96 Oximetry O2 Sat by Pulse Oximetry [ Assessment] 11/08/16 11/08/16 11/08/16 05:00 05:31 06:01 Temperature Pulse Rate 115 H 113 H 111 H Pulse Rate [ From Monitor] Respiratory 21 26 H 23 Rate Blood Pressure 145/77 145/77 124/55 O2 Sat by Pulse 97 91 92 Oximetry O2 Sat by Pulse Oximetry [ Assessment] 11/08/16 11/08/16 11/08/16 06:31 06:41 07:38 Temperature 100.1 F H Pulse Rate 115 H 114 H Pulse Rate [ From Monitor] Respiratory 24 Rate Blood Pressure 124/55 124/55 O2 Sat by Pulse 95 Oximetry O2 Sat by Pulse Oximetry [ Assessment] 11/08/16 11/08/16 11/08/16 08:00 08:45 08:57 Temperature Pulse Rate Pulse Rate [ 104 H From Monitor] Respiratory Rate Blood Pressure O2 Sat by Pulse 95 98 Oximetry O2 Sat by Pulse 97 Oximetry [ Assessment] 11/08/16 10:25 Temperature Pulse Rate 120 H Pulse Rate [ From Monitor] Respiratory Rate Blood Pressure 128/83 O2 Sat by Pulse Oximetry O2 Sat by Pulse Oximetry [ Assessment] Constitutional: no acute distress, other (eyes open; not tracking movements) Eyes: non-icteric, other (tracheostomy tube in midline of neck) ENT: oropharynx moist Neck: supple, no lymphadenopathy Effort: mildly labored Ascultation: Bilateral: rales Cardiovascular: regular rate and rhythm Gastrointestinal: hypoactive bowel sounds, soft, non-tender, non-distended, other (RLQ stomas with colostomy bags) Integumentary: other (healing back burn-like injury) Extremities: no cyanosis, no edema, pulses normal, no ischemia or petechiae Neurologic: pupils equal and round, other (sedated) Psychiatric: other (unable to assess) CBC and BMP: 11/09/16 04:35 11/10/16 07:00 ABG, PT/INR, D-dimer: ABG POC ABG pH 7.523 (7.35-7.45) H 11/07/16 21:26 POC ABG pCO2 34.6 (35-45) L 11/07/16 21:26 POC ABG pO2 53 (80-105) L 11/07/16 21:26 POC ABG HCO3 28.4 11/07/16 21:26 POC ABG Total CO2 29 11/07/16 21:26 POC ABG O2 Sat 90 11/07/16 21:26 PT/INR, D-dimer PT 19.0 Sec. (12.2-14.9) H 10/09/16 03:45 INR 1.51 (0.87-1.13) H 10/09/16 03:45 Abnormal lab findings: Abnormal Labs 09/03/16 09/03/16 09/03/16 12:12 15:07 16:20 WBC RBC Hgb Hct MCV MCH MCHC RDW Plt Count Lymph % (Auto) [place] % (Auto) Lymph # [place] # Baso # Seg Neutrophils % Seg Neuts % (Manual) Lymphocytes % (Manual) Monocytes % (Manual) Eosinophils % (Manual) Basophils % (Manual) Nucleated RBC % Seg Neutrophils # Seg Neutrophils # Man Lymphocytes # (Manual) Monocytes # (Manual) Eosinophils # (Manual) PT INR Fibrinogen dRVVT Confirm Interp Factor V Activity POC ABG pH 7.452 H POC ABG pCO2 POC ABG pO2 Sodium Potassium Chloride Carbon Dioxide BUN Creatinine Glucose POC Glucose 178 H Lactic Acid Calcium Phosphorus 2.20 L Magnesium 1.60 L Direct Bilirubin AST ALT Alkaline Phosphatase Troponin T C-Reactive Protein Total Protein Albumin Prealbumin Triglycerides Cholesterol LDL Cholesterol Direct HDL Cholesterol Urine pH Urine WBC (Auto) Urine Creatinine Urine Total Protein Vancomycin Trough Rheumatoid Factor Complement C4 Miscellaneous Test Crossmatch 09/03/16 09/03/16 09/03/16 17:57 17:58 23:50 WBC RBC Hgb Hct MCV MCH MCHC RDW Plt Count Lymph % (Auto) [place] % (Auto) Lymph # [place] # Baso # Seg Neutrophils % Seg Neuts % (Manual) Lymphocytes % (Manual) Monocytes % (Manual) Eosinophils % (Manual) Basophils % (Manual) Nucleated RBC % Seg Neutrophils # Seg Neutrophils # Man Lymphocytes # (Manual) Monocytes # (Manual) Eosinophils # (Manual) PT INR Fibrinogen dRVVT Confirm Interp Factor V Activity POC ABG pH POC ABG pCO2 POC ABG pO2 Sodium Potassium Chloride Carbon Dioxide BUN Creatinine Glucose POC Glucose 162 H 145 H Lactic Acid Calcium Phosphorus 2.30 L Magnesium Direct Bilirubin AST ALT Alkaline Phosphatase Troponin T C-Reactive Protein Total Protein Albumin Prealbumin Triglycerides Cholesterol LDL Cholesterol Direct HDL Cholesterol Urine pH Urine WBC (Auto) Urine Creatinine Urine Total Protein Vancomycin Trough Rheumatoid Factor Complement C4 Miscellaneous Test Crossmatch 09/04/16 09/04/16 09/04/16 03:31 03:31 05:42 WBC RBC Hgb 9.7 L D Hct MCV 72 L MCH 23 L MCHC RDW 17.5 H Plt Count Lymph % (Auto) 11.1 L [place] % (Auto) Lymph # [place] # Baso # Seg Neutrophils % 84.3 H Seg Neuts % (Manual) Lymphocytes % (Manual) Monocytes % (Manual) Eosinophils % (Manual) Basophils % (Manual) Nucleated RBC % Seg Neutrophils # 8.9 H Seg Neutrophils # Man Lymphocytes # (Manual) Monocytes # (Manual) Eosinophils # (Manual) PT INR Fibrinogen dRVVT Confirm Interp Factor V Activity POC ABG pH POC ABG pCO2 POC ABG pO2 Sodium 135 L Potassium 2.9 L* Chloride 97.2 L Carbon Dioxide 19 L BUN Creatinine 1.7 H Glucose 170 H POC Glucose 152 H Lactic Acid Calcium Phosphorus Magnesium Direct Bilirubin AST ALT Alkaline Phosphatase Troponin T C-Reactive Protein Total Protein Albumin Prealbumin Triglycerides 160 H Cholesterol LDL Cholesterol Direct HDL Cholesterol 31 L Urine pH Urine WBC (Auto) Urine Creatinine Urine Total Protein Vancomycin Trough Rheumatoid Factor Complement C4 Miscellaneous Test Crossmatch 09/04/16 09/04/16 09/04/16 11:34 17:46 23:29 WBC RBC Hgb Hct MCV MCH MCHC RDW Plt Count Lymph % (Auto) [place] % (Auto) Lymph # [place] # Baso # Seg Neutrophils % Seg Neuts % (Manual) Lymphocytes % (Manual) Monocytes % (Manual) Eosinophils % (Manual) Basophils % (Manual) Nucleated RBC % Seg Neutrophils # Seg Neutrophils # Man Lymphocytes # (Manual) Monocytes # (Manual) Eosinophils # (Manual) PT INR Fibrinogen dRVVT Confirm Interp Factor V Activity POC ABG pH POC ABG pCO2 POC ABG pO2 Sodium Potassium Chloride Carbon Dioxide BUN Creatinine Glucose POC Glucose 165 H 210 H 139 H Lactic Acid Calcium Phosphorus Magnesium Direct Bilirubin AST ALT Alkaline Phosphatase Troponin T C-Reactive Protein Total Protein Albumin Prealbumin Triglycerides Cholesterol LDL Cholesterol Direct HDL Cholesterol Urine pH Urine WBC (Auto) Urine Creatinine Urine Total Protein Vancomycin Trough Rheumatoid Factor Complement C4 Miscellaneous Test Crossmatch 09/05/16 09/05/16 09/05/16 04:05 04:05 05:38 WBC RBC Hgb Hct MCV 76 L D MCH 23 L MCHC RDW 17.8 H Plt Count Lymph % (Auto) [place] % (Auto) Lymph # [place] # Baso # Seg Neutrophils % Seg Neuts % (Manual) Lymphocytes % (Manual) Monocytes % (Manual) Eosinophils % (Manual) Basophils % (Manual) Nucleated RBC % Seg Neutrophils # Seg Neutrophils # Man Lymphocytes # (Manual) Monocytes # (Manual) Eosinophils # (Manual) PT INR Fibrinogen dRVVT Confirm Interp Factor V Activity POC ABG pH POC ABG pCO2 POC ABG pO2 Sodium 134 L Potassium Chloride Carbon Dioxide 18 L BUN Creatinine 1.8 H Glucose 192 H POC Glucose 175 H Lactic Acid Calcium Phosphorus Magnesium Direct Bilirubin AST ALT Alkaline Phosphatase Troponin T C-Reactive Protein Total Protein Albumin Prealbumin Triglycerides Cholesterol LDL Cholesterol Direct HDL Cholesterol Urine pH Urine WBC (Auto) Urine Creatinine Urine Total Protein Vancomycin Trough Rheumatoid Factor Complement C4 Miscellaneous Test Crossmatch 09/05/16 09/05/16 09/05/16 11:38 17:48 23:22 WBC RBC Hgb Hct MCV MCH MCHC RDW Plt Count Lymph % (Auto) [place] % (Auto) Lymph # [place] # Baso # Seg Neutrophils % Seg Neuts % (Manual) Lymphocytes % (Manual) Monocytes % (Manual) Eosinophils % (Manual) Basophils % (Manual) Nucleated RBC % Seg Neutrophils # Seg Neutrophils # Man Lymphocytes # (Manual) Monocytes # (Manual) Eosinophils # (Manual) PT INR Fibrinogen dRVVT Confirm Interp Factor V Activity POC ABG pH POC ABG pCO2 POC ABG pO2 Sodium Potassium Chloride Carbon Dioxide BUN Creatinine Glucose POC Glucose 164 H 186 H 195 H Lactic Acid Calcium Phosphorus Magnesium Direct Bilirubin AST ALT Alkaline Phosphatase Troponin T C-Reactive Protein Total Protein Albumin Prealbumin Triglycerides Cholesterol LDL Cholesterol Direct HDL Cholesterol Urine pH Urine WBC (Auto) Urine Creatinine Urine Total Protein Vancomycin Trough Rheumatoid Factor Complement C4 Miscellaneous Test Crossmatch 09/06/16 09/06/16 09/06/16 04:12 05:59 07:32 WBC RBC Hgb Hct MCV MCH MCHC RDW Plt Count Lymph % (Auto) [place] % (Auto) Lymph # [place] # Baso # Seg Neutrophils % Seg Neuts % (Manual) Lymphocytes % (Manual) Monocytes % (Manual) Eosinophils % (Manual) Basophils % (Manual) Nucleated RBC % Seg Neutrophils # Seg Neutrophils # Man Lymphocytes # (Manual) Monocytes # (Manual) Eosinophils # (Manual) PT INR Fibrinogen dRVVT Confirm Interp Factor V Activity POC ABG pH 7.514 H POC ABG pCO2 29.1 L POC ABG pO2 72 L Sodium 133 L Potassium 3.4 L Chloride 94.9 L Carbon Dioxide 19 L BUN 30 H Creatinine 2.1 H Glucose 139 H POC Glucose 146 H Lactic Acid Calcium Phosphorus Magnesium Direct Bilirubin AST ALT Alkaline Phosphatase Troponin T C-Reactive Protein Total Protein Albumin Prealbumin Triglycerides Cholesterol LDL Cholesterol Direct HDL Cholesterol Urine pH Urine WBC (Auto) Urine Creatinine Urine Total Protein Vancomycin Trough Rheumatoid Factor Complement C4 Miscellaneous Test Crossmatch 09/06/16 09/06/16 09/06/16 11:57 17:58 19:02 WBC RBC Hgb Hct MCV MCH MCHC RDW Plt Count Lymph % (Auto) [place] % (Auto) Lymph # [place] # Baso # Seg Neutrophils % Seg Neuts % (Manual) Lymphocytes % (Manual) Monocytes % (Manual) Eosinophils % (Manual) Basophils % (Manual) Nucleated RBC % Seg Neutrophils # Seg Neutrophils # Man Lymphocytes # (Manual) Monocytes # (Manual) Eosinophils # (Manual) PT INR Fibrinogen dRVVT Confirm Interp Factor V Activity POC ABG pH 7.465 H POC ABG pCO2 32.0 L POC ABG pO2 Sodium Potassium Chloride Carbon Dioxide BUN Creatinine Glucose POC Glucose 165 H 160 H Lactic Acid Calcium Phosphorus Magnesium Direct Bilirubin AST ALT Alkaline Phosphatase Troponin T C-Reactive Protein Total Protein Albumin Prealbumin Triglycerides Cholesterol LDL Cholesterol Direct HDL Cholesterol Urine pH Urine WBC (Auto) Urine Creatinine Urine Total Protein Vancomycin Trough Rheumatoid Factor Complement C4 Miscellaneous Test Crossmatch 09/06/16 09/07/16 09/07/16 23:45 02:47 02:47 WBC RBC Hgb Hct MCV MCH MCHC RDW Plt Count Lymph % (Auto) [place] % (Auto) Lymph # [place] # Baso # Seg Neutrophils % Seg Neuts % (Manual) Lymphocytes % (Manual) Monocytes % (Manual) Eosinophils % (Manual) Basophils % (Manual) Nucleated RBC % Seg Neutrophils # Seg Neutrophils # Man Lymphocytes # (Manual) Monocytes # (Manual) Eosinophils # (Manual) PT INR Fibrinogen dRVVT Confirm Interp Factor V Activity POC ABG pH POC ABG pCO2 POC ABG pO2 Sodium Potassium Chloride Carbon Dioxide BUN Creatinine Glucose POC Glucose 204 H Lactic Acid Calcium Phosphorus Magnesium Direct Bilirubin AST ALT Alkaline Phosphatase Troponin T C-Reactive Protein Total Protein Albumin Prealbumin Triglycerides Cholesterol LDL Cholesterol Direct HDL Cholesterol Urine pH Urine WBC (Auto) 68.0 H Urine Creatinine 106.1 H Urine Total Protein Vancomycin Trough Rheumatoid Factor Complement C4 Miscellaneous Test Crossmatch 09/07/16 09/07/16 09/07/16 04:50 06:19 06:39 WBC RBC Hgb Hct MCV MCH MCHC RDW Plt Count Lymph % (Auto) [place] % (Auto) Lymph # [place] # Baso # Seg Neutrophils % Seg Neuts % (Manual) Lymphocytes % (Manual) Monocytes % (Manual) Eosinophils % (Manual) Basophils % (Manual) Nucleated RBC % Seg Neutrophils # Seg Neutrophils # Man Lymphocytes # (Manual) Monocytes # (Manual) Eosinophils # (Manual) PT INR Fibrinogen dRVVT Confirm Interp Factor V Activity POC ABG pH 7.457 H POC ABG pCO2 32.1 L POC ABG pO2 76 L Sodium 132 L Potassium Chloride 94.7 L Carbon Dioxide BUN 53 H Creatinine 2.9 H Glucose 151 H POC Glucose 149 H Lactic Acid Calcium Phosphorus Magnesium Direct Bilirubin AST ALT Alkaline Phosphatase Troponin T C-Reactive Protein Total Protein Albumin Prealbumin Triglycerides Cholesterol LDL Cholesterol Direct HDL Cholesterol Urine pH Urine WBC (Auto) Urine Creatinine Urine Total Protein Vancomycin Trough Rheumatoid Factor Complement C4 Miscellaneous Test Crossmatch 09/07/16 09/07/16 09/07/16 09:20 11:43 11:43 WBC 19.4 H RBC Hgb 8.3 L Hct 26.4 L D MCV 72 L D MCH 22 L MCHC RDW 17.9 H Plt Count Lymph % (Auto) 8.5 L [place] % (Auto) Lymph # [place] # 1.0 H Baso # Seg Neutrophils % 85.8 H Seg Neuts % (Manual) Lymphocytes % (Manual) Monocytes % (Manual) Eosinophils % (Manual) Basophils % (Manual) Nucleated RBC % Seg Neutrophils # 16.6 H Seg Neutrophils # Man Lymphocytes # (Manual) Monocytes # (Manual) Eosinophils # (Manual) PT INR Fibrinogen dRVVT Confirm Interp Factor V Activity POC ABG pH POC ABG pCO2 POC ABG pO2 Sodium 134 L Potassium Chloride 97.2 L Carbon Dioxide 20 L BUN 58 H Creatinine 2.9 H Glucose 147 H POC Glucose Lactic Acid Calcium Phosphorus 2.40 L Magnesium 2.40 H Direct Bilirubin AST ALT Alkaline Phosphatase Troponin T C-Reactive Protein Total Protein 5.8 L Albumin 2.2 L Prealbumin Triglycerides Cholesterol LDL Cholesterol Direct HDL Cholesterol Urine pH Urine WBC (Auto) Urine Creatinine Urine Total Protein Vancomycin Trough Rheumatoid Factor Complement C4 58 H Miscellaneous Test Crossmatch 09/07/16 09/07/16 09/07/16 11:50 16:00 17:31 WBC RBC Hgb Hct MCV MCH MCHC RDW Plt Count Lymph % (Auto) [place] % (Auto) Lymph # [place] # Baso # Seg Neutrophils % Seg Neuts % (Manual) Lymphocytes % (Manual) Monocytes % (Manual) Eosinophils % (Manual) Basophils % (Manual) Nucleated RBC % Seg Neutrophils # Seg Neutrophils # Man Lymphocytes # (Manual) Monocytes # (Manual) Eosinophils # (Manual) PT INR Fibrinogen dRVVT Confirm Interp Factor V Activity POC ABG pH POC ABG pCO2 POC ABG pO2 158 H Sodium Potassium Chloride Carbon Dioxide BUN Creatinine Glucose POC Glucose 175 H Lactic Acid Calcium Phosphorus Magnesium Direct Bilirubin AST ALT Alkaline Phosphatase Troponin T C-Reactive Protein Total Protein Albumin Prealbumin Triglycerides Cholesterol LDL Cholesterol Direct HDL Cholesterol Urine pH Urine WBC (Auto) Urine Creatinine 66.3 H Urine Total Protein Vancomycin Trough Rheumatoid Factor Complement C4 Miscellaneous Test Crossmatch 09/07/16 09/08/16 09/08/16 23:50 05:46 06:18 WBC 17.8 H RBC 3.58 L Hgb 8.1 L Hct 25.5 L MCV 71 L MCH 23 L MCHC RDW 18.4 H Plt Count Lymph % (Auto) [place] % (Auto) Lymph # [place] # Baso # Seg Neutrophils % Seg Neuts % (Manual) 92.0 H Lymphocytes % (Manual) 6.0 L Monocytes % (Manual) Eosinophils % (Manual) Basophils % (Manual) Nucleated RBC % Seg Neutrophils # Seg Neutrophils # Man 16.4 H Lymphocytes # (Manual) 1.1 L Monocytes # (Manual) Eosinophils # (Manual) PT INR Fibrinogen dRVVT Confirm Interp Factor V Activity POC ABG pH POC ABG pCO2 34.3 L POC ABG pO2 71 L Sodium Potassium Chloride Carbon Dioxide BUN Creatinine Glucose POC Glucose 216 H Lactic Acid Calcium Phosphorus Magnesium Direct Bilirubin AST ALT Alkaline Phosphatase Troponin T C-Reactive Protein Total Protein Albumin Prealbumin Triglycerides Cholesterol LDL Cholesterol Direct HDL Cholesterol Urine pH Urine WBC (Auto) Urine Creatinine Urine Total Protein Vancomycin Trough Rheumatoid Factor Complement C4 Miscellaneous Test Crossmatch 09/08/16 09/08/16 09/08/16 06:18 06:51 10:55 WBC RBC Hgb Hct MCV MCH MCHC RDW Plt Count Lymph % (Auto) [place] % (Auto) Lymph # [place] # Baso # Seg Neutrophils % Seg Neuts % (Manual) Lymphocytes % (Manual) Monocytes % (Manual) Eosinophils % (Manual) Basophils % (Manual) Nucleated RBC % Seg Neutrophils # Seg Neutrophils # Man Lymphocytes # (Manual) Monocytes # (Manual) Eosinophils # (Manual) PT INR Fibrinogen dRVVT Confirm Interp Factor V Activity POC ABG pH POC ABG pCO2 POC ABG pO2 Sodium 133 L Potassium Chloride 96.9 L Carbon Dioxide 20 L BUN 63 H Creatinine 2.7 H Glucose 195 H POC Glucose 204 H 169 H Lactic Acid Calcium Phosphorus Magnesium Direct Bilirubin AST ALT Alkaline Phosphatase Troponin T C-Reactive Protein Total Protein Albumin Prealbumin Triglycerides Cholesterol LDL Cholesterol Direct HDL Cholesterol Urine pH Urine WBC (Auto) Urine Creatinine Urine Total Protein Vancomycin Trough Rheumatoid Factor Complement C4 Miscellaneous Test Crossmatch 09/08/16 09/08/16 09/08/16 11:48 11:48 11:48 WBC RBC Hgb Hct MCV MCH MCHC RDW Plt Count Lymph % (Auto) [place] % (Auto) Lymph # [place] # Baso # Seg Neutrophils % Seg Neuts % (Manual) Lymphocytes % (Manual) Monocytes % (Manual) Eosinophils % (Manual) Basophils % (Manual) Nucleated RBC % Seg Neutrophils # Seg Neutrophils # Man Lymphocytes # (Manual) Monocytes # (Manual) Eosinophils # (Manual) PT INR Fibrinogen 750 H dRVVT Confirm Interp Factor V Activity POC ABG pH POC ABG pCO2 POC ABG pO2 Sodium Potassium Chloride Carbon Dioxide BUN Creatinine Glucose POC Glucose Lactic Acid Calcium Phosphorus Magnesium Direct Bilirubin AST ALT Alkaline Phosphatase Troponin T C-Reactive Protein 15.70 H Total Protein Albumin Prealbumin Triglycerides Cholesterol LDL Cholesterol Direct HDL Cholesterol Urine pH Urine WBC (Auto) Urine Creatinine Urine Total Protein Vancomycin Trough Rheumatoid Factor 24 H Complement C4 Miscellaneous Test Crossmatch 09/08/16 09/08/16 09/09/16 15:35 18:25 00:24 WBC RBC Hgb Hct MCV MCH MCHC RDW Plt Count Lymph % (Auto) [place] % (Auto) Lymph # [place] # Baso # Seg Neutrophils % Seg Neuts % (Manual) Lymphocytes % (Manual) Monocytes % (Manual) Eosinophils % (Manual) Basophils % (Manual) Nucleated RBC % Seg Neutrophils # Seg Neutrophils # Man Lymphocytes # (Manual) Monocytes # (Manual) Eosinophils # (Manual) PT INR Fibrinogen dRVVT Confirm Interp Factor V Activity 182 H POC ABG pH POC ABG pCO2 POC ABG pO2 Sodium Potassium Chloride Carbon Dioxide BUN Creatinine Glucose POC Glucose 184 H 216 H Lactic Acid Calcium Phosphorus Magnesium Direct Bilirubin AST ALT Alkaline Phosphatase Troponin T C-Reactive Protein Total Protein Albumin Prealbumin Triglycerides Cholesterol LDL Cholesterol Direct HDL Cholesterol Urine pH Urine WBC (Auto) Urine Creatinine Urine Total Protein Vancomycin Trough Rheumatoid Factor Complement C4 Miscellaneous Test Crossmatch 09/09/16 09/09/16 09/09/16 03:00 03:00 04:04 WBC 27.9 H RBC Hgb 8.7 L Hct 28.1 L MCV 72 L MCH 22 L MCHC RDW 18.4 H Plt Count 485 H Lymph % (Auto) [place] % (Auto) Lymph # [place] # Baso # Seg Neutrophils % Seg Neuts % (Manual) 77.0 H Lymphocytes % (Manual) 9.0 L Monocytes % (Manual) Eosinophils % (Manual) Basophils % (Manual) Nucleated RBC % Seg Neutrophils # Seg Neutrophils # Man 21.5 H Lymphocytes # (Manual) Monocytes # (Manual) 2.0 H Eosinophils # (Manual) PT INR Fibrinogen dRVVT Confirm Interp Factor V Activity POC ABG pH POC ABG pCO2 POC ABG pO2 121 H Sodium 135 L Potassium Chloride 96.3 L Carbon Dioxide 21 L BUN 83 H Creatinine 3.0 H Glucose 135 H POC Glucose Lactic Acid Calcium Phosphorus Magnesium Direct Bilirubin AST ALT Alkaline Phosphatase Troponin T C-Reactive Protein Total Protein Albumin Prealbumin Triglycerides Cholesterol LDL Cholesterol Direct HDL Cholesterol Urine pH Urine WBC (Auto) Urine Creatinine Urine Total Protein Vancomycin Trough Rheumatoid Factor Complement C4 Miscellaneous Test Crossmatch 09/09/16 09/09/16 09/09/16 05:41 11:55 14:13 WBC RBC Hgb Hct MCV MCH MCHC RDW Plt Count Lymph % (Auto) [place] % (Auto) Lymph # [place] # Baso # Seg Neutrophils % Seg Neuts % (Manual) Lymphocytes % (Manual) Monocytes % (Manual) Eosinophils % (Manual) Basophils % (Manual) Nucleated RBC % Seg Neutrophils # Seg Neutrophils # Man Lymphocytes # (Manual) Monocytes # (Manual) Eosinophils # (Manual) PT INR Fibrinogen dRVVT Confirm Interp Factor V Activity POC ABG pH POC ABG pCO2 POC ABG pO2 Sodium Potassium Chloride Carbon Dioxide BUN Creatinine Glucose POC Glucose 155 H 186 H Lactic Acid Calcium Phosphorus Magnesium Direct Bilirubin AST ALT Alkaline Phosphatase Troponin T C-Reactive Protein Total Protein Albumin Prealbumin Triglycerides Cholesterol LDL Cholesterol Direct HDL Cholesterol Urine pH Urine WBC (Auto) 25.0 H Urine Creatinine Urine Total Protein Vancomycin Trough Rheumatoid Factor Complement C4 Miscellaneous Test Crossmatch 09/09/16 09/09/16 09/10/16 17:33 23:13 05:09 WBC RBC Hgb Hct MCV MCH MCHC RDW Plt Count Lymph % (Auto) [place] % (Auto) Lymph # [place] # Baso # Seg Neutrophils % Seg Neuts % (Manual) Lymphocytes % (Manual) Monocytes % (Manual) Eosinophils % (Manual) Basophils % (Manual) Nucleated RBC % Seg Neutrophils # Seg Neutrophils # Man Lymphocytes # (Manual) Monocytes # (Manual) Eosinophils # (Manual) PT INR Fibrinogen dRVVT Confirm Interp Factor V Activity POC ABG pH POC ABG pCO2 POC ABG pO2 74 L Sodium Potassium Chloride Carbon Dioxide BUN Creatinine Glucose POC Glucose 211 H 215 H Lactic Acid Calcium Phosphorus Magnesium Direct Bilirubin AST ALT Alkaline Phosphatase Troponin T C-Reactive Protein Total Protein Albumin Prealbumin Triglycerides Cholesterol LDL Cholesterol Direct HDL Cholesterol Urine pH Urine WBC (Auto) Urine Creatinine Urine Total Protein Vancomycin Trough Rheumatoid Factor Complement C4 Miscellaneous Test Crossmatch 09/10/16 09/10/16 09/10/16 05:17 05:17 11:31 WBC 15.8 H RBC 3.25 L Hgb 7.3 L Hct 22.9 L MCV 71 L MCH 23 L MCHC RDW 18.4 H Plt Count Lymph % (Auto) [place] % (Auto) Lymph # [place] # Baso # Seg Neutrophils % Seg Neuts % (Manual) 91.0 H Lymphocytes % (Manual) 4.0 L Monocytes % (Manual) Eosinophils % (Manual) Basophils % (Manual) Nucleated RBC % Seg Neutrophils # Seg Neutrophils # Man 14.4 H Lymphocytes # (Manual) 0.6 L Monocytes # (Manual) Eosinophils # (Manual) PT INR Fibrinogen dRVVT Confirm Interp Factor V Activity POC ABG pH POC ABG pCO2 POC ABG pO2 Sodium Potassium Chloride Carbon Dioxide 21 L BUN 93 H Creatinine 2.9 H Glucose 146 H POC Glucose 188 H Lactic Acid Calcium 8.1 L Phosphorus Magnesium Direct Bilirubin AST ALT Alkaline Phosphatase Troponin T C-Reactive Protein Total Protein Albumin Prealbumin Triglycerides Cholesterol LDL Cholesterol Direct HDL Cholesterol Urine pH Urine WBC (Auto) Urine Creatinine Urine Total Protein Vancomycin Trough Rheumatoid Factor Complement C4 Miscellaneous Test Crossmatch 09/10/16 09/10/16 09/10/16 13:17 17:20 23:32 WBC RBC Hgb Hct MCV MCH MCHC RDW Plt Count Lymph % (Auto) [place] % (Auto) Lymph # [place] # Baso # Seg Neutrophils % Seg Neuts % (Manual) Lymphocytes % (Manual) Monocytes % (Manual) Eosinophils % (Manual) Basophils % (Manual) Nucleated RBC % Seg Neutrophils # Seg Neutrophils # Man Lymphocytes # (Manual) Monocytes # (Manual) Eosinophils # (Manual) PT INR Fibrinogen dRVVT Confirm Interp Factor V Activity POC ABG pH POC ABG pCO2 POC ABG pO2 Sodium Potassium Chloride Carbon Dioxide BUN Creatinine Glucose POC Glucose 199 H 186 H Lactic Acid Calcium Phosphorus Magnesium Direct Bilirubin AST ALT Alkaline Phosphatase Troponin T C-Reactive Protein Total Protein Albumin Prealbumin Triglycerides Cholesterol LDL Cholesterol Direct HDL Cholesterol Urine pH Urine WBC (Auto) Urine Creatinine Urine Total Protein Vancomycin Trough Rheumatoid Factor Complement C4 Miscellaneous Test Crossmatch See Detail 09/11/16 09/11/16 09/11/16 05:10 05:10 05:17 WBC 28.4 H RBC Hgb 9.2 L Hct 29.3 L D MCV 73 L MCH 23 L MCHC RDW 18.9 H Plt Count 452 H Lymph % (Auto) [place] % (Auto) Lymph # [place] # Baso # Seg Neutrophils % Seg Neuts % (Manual) 89.5 H Lymphocytes % (Manual) 2.0 L Monocytes % (Manual) Eosinophils % (Manual) Basophils % (Manual) Nucleated RBC % Seg Neutrophils # Seg Neutrophils # Man 25.4 H Lymphocytes # (Manual) 0.6 L Monocytes # (Manual) 1.3 H Eosinophils # (Manual) PT INR Fibrinogen dRVVT Confirm Interp Factor V Activity POC ABG pH POC ABG pCO2 POC ABG pO2 Sodium 136 L Potassium Chloride Carbon Dioxide 18 L BUN 107 H Creatinine 2.6 H Glucose 187 H POC Glucose 230 H Lactic Acid Calcium 8.3 L Phosphorus Magnesium Direct Bilirubin AST ALT Alkaline Phosphatase Troponin T C-Reactive Protein Total Protein Albumin Prealbumin Triglycerides Cholesterol LDL Cholesterol Direct HDL Cholesterol Urine pH Urine WBC (Auto) Urine Creatinine Urine Total Protein Vancomycin Trough Rheumatoid Factor Complement C4 Miscellaneous Test Crossmatch 09/11/16 09/11/16 09/11/16 05:55 12:02 17:32 WBC RBC Hgb Hct MCV MCH MCHC RDW Plt Count Lymph % (Auto) [place] % (Auto) Lymph # [place] # Baso # Seg Neutrophils % Seg Neuts % (Manual) Lymphocytes % (Manual) Monocytes % (Manual) Eosinophils % (Manual) Basophils % (Manual) Nucleated RBC % Seg Neutrophils # Seg Neutrophils # Man Lymphocytes # (Manual) Monocytes # (Manual) Eosinophils # (Manual) PT INR Fibrinogen dRVVT Confirm Interp Factor V Activity POC ABG pH POC ABG pCO2 33.8 L POC ABG pO2 Sodium Potassium Chloride Carbon Dioxide BUN Creatinine Glucose POC Glucose 191 H 239 H Lactic Acid Calcium Phosphorus Magnesium Direct Bilirubin AST ALT Alkaline Phosphatase Troponin T C-Reactive Protein Total Protein Albumin Prealbumin Triglycerides Cholesterol LDL Cholesterol Direct HDL Cholesterol Urine pH Urine WBC (Auto) Urine Creatinine Urine Total Protein Vancomycin Trough Rheumatoid Factor Complement C4 Miscellaneous Test Crossmatch 09/11/16 09/12/16 09/12/16 23:52 05:09 05:32 WBC RBC Hgb Hct MCV MCH MCHC RDW Plt Count Lymph % (Auto) [place] % (Auto) Lymph # [place] # Baso # Seg Neutrophils % Seg Neuts % (Manual) Lymphocytes % (Manual) Monocytes % (Manual) Eosinophils % (Manual) Basophils % (Manual) Nucleated RBC % Seg Neutrophils # Seg Neutrophils # Man Lymphocytes # (Manual) Monocytes # (Manual) Eosinophils # (Manual) PT INR Fibrinogen dRVVT Confirm Interp Factor V Activity POC ABG pH POC ABG pCO2 34.6 L POC ABG pO2 Sodium Potassium Chloride Carbon Dioxide BUN Creatinine Glucose POC Glucose 265 H 184 H Lactic Acid Calcium Phosphorus Magnesium Direct Bilirubin AST ALT Alkaline Phosphatase Troponin T C-Reactive Protein Total Protein Albumin Prealbumin Triglycerides Cholesterol LDL Cholesterol Direct HDL Cholesterol Urine pH Urine WBC (Auto) Urine Creatinine Urine Total Protein Vancomycin Trough Rheumatoid Factor Complement C4 Miscellaneous Test Crossmatch 09/12/16 09/12/16 09/12/16 06:45 06:45 07:22 WBC 31.7 H RBC 3.54 L Hgb 8.3 L Hct 25.9 L MCV 73 L MCH 23 L MCHC RDW 18.9 H Plt Count Lymph % (Auto) [place] % (Auto) Lymph # [place] # Baso # Seg Neutrophils % Seg Neuts % (Manual) 88.5 H Lymphocytes % (Manual) 4.5 L Monocytes % (Manual) Eosinophils % (Manual) Basophils % (Manual) Nucleated RBC % Seg Neutrophils # Seg Neutrophils # Man 28.1 H Lymphocytes # (Manual) Monocytes # (Manual) 1.0 H Eosinophils # (Manual) PT INR Fibrinogen dRVVT Confirm Interp Factor V Activity POC ABG pH POC ABG pCO2 POC ABG pO2 Sodium Potassium Chloride Carbon Dioxide 20 L BUN 115 H Creatinine 2.7 H Glucose 165 H POC Glucose Lactic Acid Calcium 8.0 L Phosphorus Magnesium Direct Bilirubin AST ALT Alkaline Phosphatase Troponin T C-Reactive Protein Total Protein Albumin Prealbumin Triglycerides 217 H Cholesterol LDL Cholesterol Direct HDL Cholesterol Urine pH Urine WBC (Auto) Urine Creatinine Urine Total Protein Vancomycin Trough Rheumatoid Factor Complement C4 Miscellaneous Test Crossmatch 09/12/16 09/12/16 09/12/16 07:22 09:59 12:21 WBC RBC Hgb Hct MCV MCH MCHC RDW Plt Count Lymph % (Auto) [place] % (Auto) Lymph # [place] # Baso # Seg Neutrophils % Seg Neuts % (Manual) Lymphocytes % (Manual) Monocytes % (Manual) Eosinophils % (Manual) Basophils % (Manual) Nucleated RBC % Seg Neutrophils # Seg Neutrophils # Man Lymphocytes # (Manual) Monocytes # (Manual) Eosinophils # (Manual) PT INR Fibrinogen dRVVT Confirm Interp Positive H Factor V Activity POC ABG pH POC ABG pCO2 POC ABG pO2 Sodium Potassium Chloride Carbon Dioxide BUN Creatinine Glucose POC Glucose 224 H Lactic Acid Calcium Phosphorus Magnesium Direct Bilirubin AST ALT Alkaline Phosphatase Troponin T C-Reactive Protein 1.70 H Total Protein Albumin Prealbumin Triglycerides Cholesterol LDL Cholesterol Direct HDL Cholesterol Urine pH Urine WBC (Auto) Urine Creatinine Urine Total Protein Vancomycin Trough Rheumatoid Factor Complement C4 Miscellaneous Test Crossmatch 09/12/16 09/12/16 09/13/16 16:51 23:28 04:00 WBC 45.0 H* RBC Hgb 9.4 L Hct MCV 75 L MCH 23 L MCHC RDW 19.0 H Plt Count 470 H Lymph % (Auto) [place] % (Auto) Lymph # [place] # Baso # Seg Neutrophils % Seg Neuts % (Manual) 89.0 H Lymphocytes % (Manual) 5.0 L Monocytes % (Manual) Eosinophils % (Manual) Basophils % (Manual) Nucleated RBC % Seg Neutrophils # Seg Neutrophils # Man 40.1 H Lymphocytes # (Manual) Monocytes # (Manual) Eosinophils # (Manual) PT INR Fibrinogen dRVVT Confirm Interp Factor V Activity POC ABG pH POC ABG pCO2 POC ABG pO2 Sodium Potassium Chloride Carbon Dioxide BUN Creatinine Glucose POC Glucose 169 H 150 H Lactic Acid Calcium Phosphorus Magnesium Direct Bilirubin AST ALT Alkaline Phosphatase Troponin T C-Reactive Protein Total Protein Albumin Prealbumin Triglycerides Cholesterol LDL Cholesterol Direct HDL Cholesterol Urine pH Urine WBC (Auto) Urine Creatinine Urine Total Protein Vancomycin Trough Rheumatoid Factor Complement C4 Miscellaneous Test Crossmatch 09/13/16 09/13/16 09/13/16 04:00 11:26 17:31 WBC RBC Hgb Hct MCV MCH MCHC RDW Plt Count Lymph % (Auto) [place] % (Auto) Lymph # [place] # Baso # Seg Neutrophils % Seg Neuts % (Manual) Lymphocytes % (Manual) Monocytes % (Manual) Eosinophils % (Manual) Basophils % (Manual) Nucleated RBC % Seg Neutrophils # Seg Neutrophils # Man Lymphocytes # (Manual) Monocytes # (Manual) Eosinophils # (Manual) PT INR Fibrinogen dRVVT Confirm Interp Factor V Activity POC ABG pH POC ABG pCO2 POC ABG pO2 Sodium Potassium Chloride Carbon Dioxide 20 L BUN 116 H Creatinine 3.0 H Glucose 172 H POC Glucose 140 H 183 H Lactic Acid Calcium Phosphorus Magnesium Direct Bilirubin AST ALT Alkaline Phosphatase Troponin T C-Reactive Protein Total Protein 6.2 L Albumin 2.9 L Prealbumin Triglycerides Cholesterol LDL Cholesterol Direct HDL Cholesterol Urine pH Urine WBC (Auto) Urine Creatinine Urine Total Protein Vancomycin Trough Rheumatoid Factor Complement C4 Miscellaneous Test Crossmatch 09/13/16 09/14/16 09/14/16 23:23 04:06 04:07 WBC 29.4 H RBC Hgb 8.9 L Hct 27.3 L MCV 75 L MCH 24 L MCHC RDW 19.1 H Plt Count Lymph % (Auto) [place] % (Auto) Lymph # [place] # Baso # Seg Neutrophils % Seg Neuts % (Manual) 84.0 H Lymphocytes % (Manual) 6.0 L Monocytes % (Manual) 9.0 H Eosinophils % (Manual) Basophils % (Manual) Nucleated RBC % Seg Neutrophils # Seg Neutrophils # Man 24.7 H Lymphocytes # (Manual) Monocytes # (Manual) 2.6 H Eosinophils # (Manual) PT INR Fibrinogen dRVVT Confirm Interp Factor V Activity POC ABG pH 7.342 L POC ABG pCO2 POC ABG pO2 116 H Sodium Potassium Chloride Carbon Dioxide BUN Creatinine Glucose POC Glucose 154 H Lactic Acid Calcium Phosphorus Magnesium Direct Bilirubin AST ALT Alkaline Phosphatase Troponin T C-Reactive Protein Total Protein Albumin Prealbumin Triglycerides Cholesterol LDL Cholesterol Direct HDL Cholesterol Urine pH Urine WBC (Auto) Urine Creatinine Urine Total Protein Vancomycin Trough Rheumatoid Factor Complement C4 Miscellaneous Test Crossmatch 09/14/16 09/14/16 09/14/16 04:07 05:29 12:19 WBC RBC Hgb Hct MCV MCH MCHC RDW Plt Count Lymph % (Auto) [place] % (Auto) Lymph # [place] # Baso # Seg Neutrophils % Seg Neuts % (Manual) Lymphocytes % (Manual) Monocytes % (Manual) Eosinophils % (Manual) Basophils % (Manual) Nucleated RBC % Seg Neutrophils # Seg Neutrophils # Man Lymphocytes # (Manual) Monocytes # (Manual) Eosinophils # (Manual) PT INR Fibrinogen dRVVT Confirm Interp Factor V Activity POC ABG pH POC ABG pCO2 POC ABG pO2 Sodium 136 L Potassium Chloride Carbon Dioxide 18 L BUN 121 H Creatinine 2.8 H Glucose 214 H POC Glucose 239 H 181 H Lactic Acid Calcium Phosphorus Magnesium Direct Bilirubin AST ALT Alkaline Phosphatase Troponin T C-Reactive Protein Total Protein Albumin Prealbumin Triglycerides Cholesterol LDL Cholesterol Direct HDL Cholesterol Urine pH Urine WBC (Auto) Urine Creatinine Urine Total Protein Vancomycin Trough Rheumatoid Factor Complement C4 Miscellaneous Test Crossmatch 09/14/16 09/14/16 09/15/16 18:12 23:37 05:00 WBC 26.1 H RBC 3.05 L Hgb 7.2 L Hct 22.9 L MCV 75 L MCH 24 L MCHC RDW 19.0 H Plt Count Lymph % (Auto) [place] % (Auto) Lymph # [place] # Baso # Seg Neutrophils % Seg Neuts % (Manual) Lymphocytes % (Manual) Monocytes % (Manual) Eosinophils % (Manual) Basophils % (Manual) Nucleated RBC % Seg Neutrophils # Seg Neutrophils # Man Lymphocytes # (Manual) Monocytes # (Manual) Eosinophils # (Manual) PT INR Fibrinogen dRVVT Confirm Interp Factor V Activity POC ABG pH POC ABG pCO2 POC ABG pO2 Sodium Potassium Chloride Carbon Dioxide BUN Creatinine Glucose POC Glucose 266 H 154 H Lactic Acid Calcium Phosphorus Magnesium Direct Bilirubin AST ALT Alkaline Phosphatase Troponin T C-Reactive Protein Total Protein Albumin Prealbumin Triglycerides Cholesterol LDL Cholesterol Direct HDL Cholesterol Urine pH Urine WBC (Auto) Urine Creatinine Urine Total Protein Vancomycin Trough Rheumatoid Factor Complement C4 Miscellaneous Test Crossmatch 09/15/16 09/15/16 09/15/16 05:00 05:17 12:45 WBC RBC Hgb Hct MCV MCH MCHC RDW Plt Count Lymph % (Auto) [place] % (Auto) Lymph # [place] # Baso # Seg Neutrophils % Seg Neuts % (Manual) Lymphocytes % (Manual) Monocytes % (Manual) Eosinophils % (Manual) Basophils % (Manual) Nucleated RBC % Seg Neutrophils # Seg Neutrophils # Man Lymphocytes # (Manual) Monocytes # (Manual) Eosinophils # (Manual) PT INR Fibrinogen dRVVT Confirm Interp Factor V Activity POC ABG pH POC ABG pCO2 POC ABG pO2 Sodium Potassium 5.2 H Chloride Carbon Dioxide 18 L BUN 139 H Creatinine 3.7 H Glucose 227 H POC Glucose 226 H 244 H Lactic Acid Calcium 8.3 L Phosphorus Magnesium Direct Bilirubin AST ALT Alkaline Phosphatase Troponin T C-Reactive Protein Total Protein Albumin Prealbumin Triglycerides Cholesterol LDL Cholesterol Direct HDL Cholesterol Urine pH Urine WBC (Auto) Urine Creatinine Urine Total Protein Vancomycin Trough Rheumatoid Factor Complement C4 Miscellaneous Test Crossmatch 09/15/16 09/15/16 09/15/16 14:32 17:33 23:35 WBC RBC Hgb Hct MCV MCH MCHC RDW Plt Count Lymph % (Auto) [place] % (Auto) Lymph # [place] # Baso # Seg Neutrophils % Seg Neuts % (Manual) Lymphocytes % (Manual) Monocytes % (Manual) Eosinophils % (Manual) Basophils % (Manual) Nucleated RBC % Seg Neutrophils # Seg Neutrophils # Man Lymphocytes # (Manual) Monocytes # (Manual) Eosinophils # (Manual) PT INR Fibrinogen dRVVT Confirm Interp Factor V Activity POC ABG pH POC ABG pCO2 27.7 L POC ABG pO2 120 H Sodium Potassium Chloride Carbon Dioxide BUN Creatinine Glucose POC Glucose 232 H 167 H Lactic Acid Calcium Phosphorus Magnesium Direct Bilirubin AST ALT Alkaline Phosphatase Troponin T C-Reactive Protein Total Protein Albumin Prealbumin Triglycerides Cholesterol LDL Cholesterol Direct HDL Cholesterol Urine pH Urine WBC (Auto) Urine Creatinine Urine Total Protein Vancomycin Trough Rheumatoid Factor Complement C4 Miscellaneous Test Crossmatch 09/16/16 09/16/16 09/16/16 03:58 10:27 10:27 WBC 19.0 H RBC 2.77 L Hgb 6.5 L Hct 20.9 L MCV 76 L MCH 23 L MCHC RDW 19.3 H Plt Count Lymph % (Auto) 11.0 L [place] % (Auto) Lymph # [place] # 1.1 H Baso # Seg Neutrophils % 82.5 H Seg Neuts % (Manual) Lymphocytes % (Manual) Monocytes % (Manual) Eosinophils % (Manual) Basophils % (Manual) Nucleated RBC % Seg Neutrophils # 15.7 H Seg Neutrophils # Man Lymphocytes # (Manual) Monocytes # (Manual) Eosinophils # (Manual) PT INR Fibrinogen dRVVT Confirm Interp Factor V Activity POC ABG pH POC ABG pCO2 POC ABG pO2 Sodium Potassium Chloride 109.3 H Carbon Dioxide 18 L BUN 139 H Creatinine 4.1 H Glucose 144 H POC Glucose 146 H Lactic Acid Calcium 8.1 L Phosphorus Magnesium Direct Bilirubin AST ALT Alkaline Phosphatase Troponin T C-Reactive Protein Total Protein Albumin Prealbumin Triglycerides Cholesterol LDL Cholesterol Direct HDL Cholesterol Urine pH Urine WBC (Auto) Urine Creatinine Urine Total Protein Vancomycin Trough Rheumatoid Factor Complement C4 Miscellaneous Test Crossmatch 09/16/16 09/16/16 09/16/16 12:04 12:10 13:55 WBC RBC Hgb Hct MCV MCH MCHC RDW Plt Count Lymph % (Auto) [place] % (Auto) Lymph # [place] # Baso # Seg Neutrophils % Seg Neuts % (Manual) Lymphocytes % (Manual) Monocytes % (Manual) Eosinophils % (Manual) Basophils % (Manual) Nucleated RBC % Seg Neutrophils # Seg Neutrophils # Man Lymphocytes # (Manual) Monocytes # (Manual) Eosinophils # (Manual) PT INR Fibrinogen dRVVT Confirm Interp Factor V Activity POC ABG pH POC ABG pCO2 32.9 L POC ABG pO2 Sodium Potassium Chloride Carbon Dioxide BUN Creatinine Glucose POC Glucose 185 H Lactic Acid Calcium Phosphorus Magnesium Direct Bilirubin AST ALT Alkaline Phosphatase Troponin T C-Reactive Protein Total Protein Albumin Prealbumin Triglycerides Cholesterol LDL Cholesterol Direct HDL Cholesterol Urine pH Urine WBC (Auto) Urine Creatinine Urine Total Protein Vancomycin Trough Rheumatoid Factor Complement C4 Miscellaneous Test Crossmatch See Detail 09/16/16 09/16/16 09/16/16 17:55 19:19 23:48 WBC RBC Hgb Hct MCV MCH MCHC RDW Plt Count Lymph % (Auto) [place] % (Auto) Lymph # [place] # Baso # Seg Neutrophils % Seg Neuts % (Manual) Lymphocytes % (Manual) Monocytes % (Manual) Eosinophils % (Manual) Basophils % (Manual) Nucleated RBC % Seg Neutrophils # Seg Neutrophils # Man Lymphocytes # (Manual) Monocytes # (Manual) Eosinophils # (Manual) PT INR Fibrinogen dRVVT Confirm Interp Factor V Activity POC ABG pH POC ABG pCO2 POC ABG pO2 Sodium Potassium Chloride Carbon Dioxide BUN Creatinine Glucose POC Glucose 222 H 107 H Lactic Acid Calcium Phosphorus Magnesium Direct Bilirubin AST ALT Alkaline Phosphatase Troponin T C-Reactive Protein Total Protein Albumin Prealbumin Triglycerides Cholesterol LDL Cholesterol Direct HDL Cholesterol Urine pH Urine WBC (Auto) Urine Creatinine 47.4 H Urine Total Protein 16 H Vancomycin Trough Rheumatoid Factor Complement C4 Miscellaneous Test Crossmatch 09/17/16 09/17/16 09/17/16 03:45 03:45 04:55 WBC 19.6 H RBC 3.41 L Hgb 8.5 L Hct 26.7 L MCV 78 L MCH 25 L MCHC RDW 19.9 H Plt Count Lymph % (Auto) 9.3 L [place] % (Auto) Lymph # [place] # 1.2 H Baso # Seg Neutrophils % 83.9 H Seg Neuts % (Manual) Lymphocytes % (Manual) Monocytes % (Manual) Eosinophils % (Manual) Basophils % (Manual) Nucleated RBC % Seg Neutrophils # 16.4 H Seg Neutrophils # Man Lymphocytes # (Manual) Monocytes # (Manual) Eosinophils # (Manual) PT INR Fibrinogen dRVVT Confirm Interp Factor V Activity POC ABG pH POC ABG pCO2 POC ABG pO2 Sodium 146 H Potassium 5.1 H Chloride 110.9 H Carbon Dioxide 16 L BUN 146 H Creatinine 4.0 H Glucose 108 H POC Glucose 133 H Lactic Acid Calcium Phosphorus Magnesium 3.00 H Direct Bilirubin AST ALT Alkaline Phosphatase Troponin T C-Reactive Protein Total Protein Albumin Prealbumin Triglycerides Cholesterol LDL Cholesterol Direct HDL Cholesterol Urine pH Urine WBC (Auto) Urine Creatinine Urine Total Protein Vancomycin Trough Rheumatoid Factor Complement C4 Miscellaneous Test Crossmatch 09/17/16 09/17/16 09/17/16 11:15 17:33 23:47 WBC RBC Hgb Hct MCV MCH MCHC RDW Plt Count Lymph % (Auto) [place] % (Auto) Lymph # [place] # Baso # Seg Neutrophils % Seg Neuts % (Manual) Lymphocytes % (Manual) Monocytes % (Manual) Eosinophils % (Manual) Basophils % (Manual) Nucleated RBC % Seg Neutrophils # Seg Neutrophils # Man Lymphocytes # (Manual) Monocytes # (Manual) Eosinophils # (Manual) PT INR Fibrinogen dRVVT Confirm Interp Factor V Activity POC ABG pH POC ABG pCO2 POC ABG pO2 Sodium Potassium Chloride Carbon Dioxide BUN Creatinine Glucose POC Glucose 176 H 246 H 148 H Lactic Acid Calcium Phosphorus Magnesium Direct Bilirubin AST ALT Alkaline Phosphatase Troponin T C-Reactive Protein Total Protein Albumin Prealbumin Triglycerides Cholesterol LDL Cholesterol Direct HDL Cholesterol Urine pH Urine WBC (Auto) Urine Creatinine Urine Total Protein Vancomycin Trough Rheumatoid Factor Complement C4 Miscellaneous Test Crossmatch 09/18/16 09/18/16 09/18/16 05:33 08:31 08:31 WBC 18.0 H RBC 3.17 L Hgb 9.0 L Hct 25.7 L MCV MCH MCHC 35 H RDW 20.4 H Plt Count Lymph % (Auto) [place] % (Auto) Lymph # [place] # Baso # Seg Neutrophils % Seg Neuts % (Manual) Lymphocytes % (Manual) Monocytes % (Manual) Eosinophils % (Manual) Basophils % (Manual) Nucleated RBC % Seg Neutrophils # Seg Neutrophils # Man Lymphocytes # (Manual) Monocytes # (Manual) Eosinophils # (Manual) PT INR Fibrinogen dRVVT Confirm Interp Factor V Activity POC ABG pH POC ABG pCO2 POC ABG pO2 Sodium Potassium Chloride Carbon Dioxide 15 L BUN 124 H Creatinine 3.8 H Glucose POC Glucose 120 H Lactic Acid Calcium 8.1 L Phosphorus Magnesium Direct Bilirubin AST ALT Alkaline Phosphatase Troponin T C-Reactive Protein Total Protein Albumin Prealbumin Triglycerides Cholesterol LDL Cholesterol Direct HDL Cholesterol Urine pH Urine WBC (Auto) Urine Creatinine Urine Total Protein Vancomycin Trough Rheumatoid Factor Complement C4 Miscellaneous Test Crossmatch 09/18/16 09/18/16 09/18/16 12:03 15:34 17:50 WBC RBC Hgb Hct MCV MCH MCHC RDW Plt Count Lymph % (Auto) [place] % (Auto) Lymph # [place] # Baso # Seg Neutrophils % Seg Neuts % (Manual) Lymphocytes % (Manual) Monocytes % (Manual) Eosinophils % (Manual) Basophils % (Manual) Nucleated RBC % Seg Neutrophils # Seg Neutrophils # Man Lymphocytes # (Manual) Monocytes # (Manual) Eosinophils # (Manual) PT INR Fibrinogen dRVVT Confirm Interp Factor V Activity POC ABG pH POC ABG pCO2 25.7 L POC ABG pO2 66 L Sodium Potassium Chloride Carbon Dioxide BUN Creatinine Glucose POC Glucose 156 H 220 H Lactic Acid Calcium Phosphorus Magnesium Direct Bilirubin AST ALT Alkaline Phosphatase Troponin T C-Reactive Protein Total Protein Albumin Prealbumin Triglycerides Cholesterol LDL Cholesterol Direct HDL Cholesterol Urine pH Urine WBC (Auto) Urine Creatinine Urine Total Protein Vancomycin Trough Rheumatoid Factor Complement C4 Miscellaneous Test Crossmatch 09/19/16 09/19/16 09/19/16 06:21 09:50 09:50 WBC 17.1 H RBC 3.49 L Hgb 9.0 L Hct 28.1 L MCV MCH 26 L MCHC RDW 20.8 H Plt Count Lymph % (Auto) 11.5 L [place] % (Auto) 7.5 H Lymph # [place] # 1.3 H Baso # Seg Neutrophils % 79.8 H Seg Neuts % (Manual) Lymphocytes % (Manual) Monocytes % (Manual) Eosinophils % (Manual) Basophils % (Manual) Nucleated RBC % Seg Neutrophils # 13.7 H Seg Neutrophils # Man Lymphocytes # (Manual) Monocytes # (Manual) Eosinophils # (Manual) PT INR Fibrinogen dRVVT Confirm Interp Factor V Activity POC ABG pH POC ABG pCO2 POC ABG pO2 Sodium Potassium Chloride 108.6 H Carbon Dioxide 15 L BUN 125 H Creatinine 4.1 H Glucose 124 H POC Glucose 119 H Lactic Acid Calcium Phosphorus Magnesium Direct Bilirubin AST ALT Alkaline Phosphatase Troponin T C-Reactive Protein Total Protein Albumin Prealbumin Triglycerides Cholesterol LDL Cholesterol Direct HDL Cholesterol Urine pH Urine WBC (Auto) Urine Creatinine Urine Total Protein Vancomycin Trough Rheumatoid Factor Complement C4 Miscellaneous Test Crossmatch 09/19/16 09/19/16 09/19/16 11:25 17:53 23:36 WBC RBC Hgb Hct MCV MCH MCHC RDW Plt Count Lymph % (Auto) [place] % (Auto) Lymph # [place] # Baso # Seg Neutrophils % Seg Neuts % (Manual) Lymphocytes % (Manual) Monocytes % (Manual) Eosinophils % (Manual) Basophils % (Manual) Nucleated RBC % Seg Neutrophils # Seg Neutrophils # Man Lymphocytes # (Manual) Monocytes # (Manual) Eosinophils # (Manual) PT INR Fibrinogen dRVVT Confirm Interp Factor V Activity POC ABG pH POC ABG pCO2 POC ABG pO2 Sodium Potassium Chloride Carbon Dioxide BUN Creatinine Glucose POC Glucose 160 H 245 H 121 H Lactic Acid Calcium Phosphorus Magnesium Direct Bilirubin AST ALT Alkaline Phosphatase Troponin T C-Reactive Protein Total Protein Albumin Prealbumin Triglycerides Cholesterol LDL Cholesterol Direct HDL Cholesterol Urine pH Urine WBC (Auto) Urine Creatinine Urine Total Protein Vancomycin Trough Rheumatoid Factor Complement C4 Miscellaneous Test Crossmatch 09/20/16 09/20/16 09/20/16 04:10 04:10 04:10 WBC 17.0 H RBC 3.21 L Hgb 8.2 L Hct 25.5 L MCV MCH 26 L MCHC RDW 20.9 H Plt Count Lymph % (Auto) [place] % (Auto) Lymph # [place] # Baso # Seg Neutrophils % Seg Neuts % (Manual) Lymphocytes % (Manual) Monocytes % (Manual) Eosinophils % (Manual) Basophils % (Manual) Nucleated RBC % Seg Neutrophils # Seg Neutrophils # Man Lymphocytes # (Manual) Monocytes # (Manual) Eosinophils # (Manual) PT INR Fibrinogen dRVVT Confirm Interp Factor V Activity POC ABG pH POC ABG pCO2 POC ABG pO2 Sodium Potassium Chloride 111.0 H Carbon Dioxide 16 L BUN 129 H Creatinine 3.7 H Glucose 115 H POC Glucose Lactic Acid Calcium 8.2 L Phosphorus Magnesium Direct Bilirubin AST ALT Alkaline Phosphatase Troponin T C-Reactive Protein Total Protein Albumin Prealbumin Triglycerides 243 H Cholesterol LDL Cholesterol Direct HDL Cholesterol Urine pH Urine WBC (Auto) Urine Creatinine Urine Total Protein Vancomycin Trough Rheumatoid Factor Complement C4 Miscellaneous Test Crossmatch 09/20/16 09/20/16 09/20/16 05:40 11:52 16:50 WBC RBC Hgb Hct MCV MCH MCHC RDW Plt Count Lymph % (Auto) [place] % (Auto) Lymph # [place] # Baso # Seg Neutrophils % Seg Neuts % (Manual) Lymphocytes % (Manual) Monocytes % (Manual) Eosinophils % (Manual) Basophils % (Manual) Nucleated RBC % Seg Neutrophils # Seg Neutrophils # Man Lymphocytes # (Manual) Monocytes # (Manual) Eosinophils # (Manual) PT INR Fibrinogen dRVVT Confirm Interp Factor V Activity POC ABG pH POC ABG pCO2 POC ABG pO2 Sodium Potassium Chloride Carbon Dioxide BUN Creatinine Glucose POC Glucose 131 H 183 H 236 H Lactic Acid Calcium Phosphorus Magnesium Direct Bilirubin AST ALT Alkaline Phosphatase Troponin T C-Reactive Protein Total Protein Albumin Prealbumin Triglycerides Cholesterol LDL Cholesterol Direct HDL Cholesterol Urine pH Urine WBC (Auto) Urine Creatinine Urine Total Protein Vancomycin Trough Rheumatoid Factor Complement C4 Miscellaneous Test Crossmatch 09/20/16 09/21/16 09/21/16 23:51 03:30 04:44 WBC RBC Hgb Hct MCV MCH MCHC RDW Plt Count Lymph % (Auto) [place] % (Auto) Lymph # [place] # Baso # Seg Neutrophils % Seg Neuts % (Manual) Lymphocytes % (Manual) Monocytes % (Manual) Eosinophils % (Manual) Basophils % (Manual) Nucleated RBC % Seg Neutrophils # Seg Neutrophils # Man Lymphocytes # (Manual) Monocytes # (Manual) Eosinophils # (Manual) PT INR Fibrinogen dRVVT Confirm Interp Factor V Activity POC ABG pH POC ABG pCO2 POC ABG pO2 Sodium Potassium Chloride Carbon Dioxide BUN Creatinine Glucose POC Glucose 114 H 141 H Lactic Acid Calcium Phosphorus Magnesium 2.70 H Direct Bilirubin AST ALT Alkaline Phosphatase Troponin T C-Reactive Protein Total Protein Albumin Prealbumin Triglycerides Cholesterol LDL Cholesterol Direct HDL Cholesterol Urine pH Urine WBC (Auto) Urine Creatinine Urine Total Protein Vancomycin Trough Rheumatoid Factor Complement C4 Miscellaneous Test Crossmatch 09/21/16 09/21/16 09/21/16 07:45 07:45 10:01 WBC 13.8 H RBC 2.94 L Hgb 7.5 L Hct 23.5 L MCV MCH 26 L MCHC RDW 21.2 H Plt Count Lymph % (Auto) 6.9 L [place] % (Auto) 9.4 H Lymph # 0.9 L [place] # 1.3 H Baso # Seg Neutrophils % 83.2 H Seg Neuts % (Manual) Lymphocytes % (Manual) Monocytes % (Manual) Eosinophils % (Manual) Basophils % (Manual) Nucleated RBC % Seg Neutrophils # 11.5 H Seg Neutrophils # Man Lymphocytes # (Manual) Monocytes # (Manual) Eosinophils # (Manual) PT INR Fibrinogen dRVVT Confirm Interp Factor V Activity POC ABG pH 7.308 L POC ABG pCO2 31.9 L POC ABG pO2 148 H Sodium 147 H Potassium Chloride 114.2 H Carbon Dioxide 15 L BUN 120 H Creatinine 3.9 H Glucose 156 H POC Glucose Lactic Acid Calcium 8.2 L Phosphorus Magnesium Direct Bilirubin AST ALT Alkaline Phosphatase Troponin T C-Reactive Protein Total Protein Albumin Prealbumin Triglycerides Cholesterol LDL Cholesterol Direct HDL Cholesterol Urine pH Urine WBC (Auto) Urine Creatinine Urine Total Protein Vancomycin Trough Rheumatoid Factor Complement C4 Miscellaneous Test Crossmatch 09/21/16 09/21/16 09/21/16 12:00 12:03 13:00 WBC RBC Hgb Hct MCV MCH MCHC RDW Plt Count Lymph % (Auto) [place] % (Auto) Lymph # [place] # Baso # Seg Neutrophils % Seg Neuts % (Manual) Lymphocytes % (Manual) Monocytes % (Manual) Eosinophils % (Manual) Basophils % (Manual) Nucleated RBC % Seg Neutrophils # Seg Neutrophils # Man Lymphocytes # (Manual) Monocytes # (Manual) Eosinophils # (Manual) PT INR Fibrinogen dRVVT Confirm Interp Factor V Activity POC ABG pH POC ABG pCO2 POC ABG pO2 Sodium Potassium Chloride Carbon Dioxide BUN Creatinine Glucose POC Glucose 163 H Lactic Acid Calcium Phosphorus Magnesium Direct Bilirubin AST ALT Alkaline Phosphatase Troponin T C-Reactive Protein Total Protein Albumin Prealbumin Triglycerides Cholesterol LDL Cholesterol Direct HDL Cholesterol Urine pH Urine WBC (Auto) Urine Creatinine 54.8 H Urine Total Protein Vancomycin Trough 2.3 L Rheumatoid Factor Complement C4 Miscellaneous Test Crossmatch 09/21/16 09/21/16 09/22/16 16:51 23:17 06:27 WBC RBC Hgb Hct MCV MCH MCHC RDW Plt Count Lymph % (Auto) [place] % (Auto) Lymph # [place] # Baso # Seg Neutrophils % Seg Neuts % (Manual) Lymphocytes % (Manual) Monocytes % (Manual) Eosinophils % (Manual) Basophils % (Manual) Nucleated RBC % Seg Neutrophils # Seg Neutrophils # Man Lymphocytes # (Manual) Monocytes # (Manual) Eosinophils # (Manual) PT INR Fibrinogen dRVVT Confirm Interp Factor V Activity POC ABG pH POC ABG pCO2 POC ABG pO2 Sodium Potassium Chloride Carbon Dioxide BUN Creatinine Glucose POC Glucose 206 H 114 H 115 H Lactic Acid Calcium Phosphorus Magnesium Direct Bilirubin AST ALT Alkaline Phosphatase Troponin T C-Reactive Protein Total Protein Albumin Prealbumin Triglycerides Cholesterol LDL Cholesterol Direct HDL Cholesterol Urine pH Urine WBC (Auto) Urine Creatinine Urine Total Protein Vancomycin Trough Rheumatoid Factor Complement C4 Miscellaneous Test Crossmatch 09/22/16 09/22/16 09/22/16 07:50 07:50 12:00 WBC 17.8 H RBC 3.04 L Hgb 8.0 L Hct 24.7 L MCV MCH 26 L MCHC RDW 21.6 H Plt Count Lymph % (Auto) [place] % (Auto) Lymph # [place] # Baso # Seg Neutrophils % Seg Neuts % (Manual) Lymphocytes % (Manual) Monocytes % (Manual) Eosinophils % (Manual) Basophils % (Manual) Nucleated RBC % Seg Neutrophils # Seg Neutrophils # Man Lymphocytes # (Manual) Monocytes # (Manual) Eosinophils # (Manual) PT INR Fibrinogen dRVVT Confirm Interp Factor V Activity POC ABG pH POC ABG pCO2 POC ABG pO2 Sodium 150 H Potassium Chloride 118.2 H Carbon Dioxide 14 L BUN 111 H Creatinine 3.7 H Glucose 157 H POC Glucose 183 H Lactic Acid Calcium Phosphorus Magnesium Direct Bilirubin AST ALT Alkaline Phosphatase Troponin T C-Reactive Protein Total Protein Albumin Prealbumin Triglycerides Cholesterol LDL Cholesterol Direct HDL Cholesterol Urine pH Urine WBC (Auto) Urine Creatinine Urine Total Protein Vancomycin Trough Rheumatoid Factor Complement C4 Miscellaneous Test Crossmatch 09/22/16 09/22/16 09/23/16 17:29 23:10 05:00 WBC 19.2 H RBC 3.13 L Hgb 8.0 L Hct 25.2 L MCV MCH 26 L MCHC RDW 22.1 H Plt Count Lymph % (Auto) [place] % (Auto) Lymph # [place] # Baso # Seg Neutrophils % Seg Neuts % (Manual) 92.0 H Lymphocytes % (Manual) 3.0 L Monocytes % (Manual) Eosinophils % (Manual) Basophils % (Manual) Nucleated RBC % Seg Neutrophils # Seg Neutrophils # Man 17.7 H Lymphocytes # (Manual) 0.6 L Monocytes # (Manual) Eosinophils # (Manual) PT INR Fibrinogen dRVVT Confirm Interp Factor V Activity POC ABG pH POC ABG pCO2 POC ABG pO2 Sodium Potassium Chloride Carbon Dioxide BUN Creatinine Glucose POC Glucose 197 H 169 H Lactic Acid Calcium Phosphorus Magnesium Direct Bilirubin AST ALT Alkaline Phosphatase Troponin T C-Reactive Protein Total Protein Albumin Prealbumin Triglycerides Cholesterol LDL Cholesterol Direct HDL Cholesterol Urine pH Urine WBC (Auto) Urine Creatinine Urine Total Protein Vancomycin Trough Rheumatoid Factor Complement C4 Miscellaneous Test Crossmatch 09/23/16 09/23/16 09/23/16 05:00 05:00 05:10 WBC RBC Hgb Hct MCV MCH MCHC RDW Plt Count Lymph % (Auto) [place] % (Auto) Lymph # [place] # Baso # Seg Neutrophils % Seg Neuts % (Manual) Lymphocytes % (Manual) Monocytes % (Manual) Eosinophils % (Manual) Basophils % (Manual) Nucleated RBC % Seg Neutrophils # Seg Neutrophils # Man Lymphocytes # (Manual) Monocytes # (Manual) Eosinophils # (Manual) PT INR Fibrinogen dRVVT Confirm Interp Factor V Activity POC ABG pH POC ABG pCO2 POC ABG pO2 Sodium 147 H Potassium 3.2 L Chloride 115.7 H Carbon Dioxide 13 L BUN 111 H Creatinine 3.8 H Glucose 194 H POC Glucose 188 H Lactic Acid Calcium 7.3 L D Phosphorus Magnesium Direct Bilirubin AST ALT Alkaline Phosphatase Troponin T C-Reactive Protein 3.20 H Total Protein Albumin Prealbumin Triglycerides Cholesterol LDL Cholesterol Direct HDL Cholesterol Urine pH Urine WBC (Auto) Urine Creatinine Urine Total Protein Vancomycin Trough Rheumatoid Factor Complement C4 Miscellaneous Test Crossmatch 09/23/16 09/23/16 09/23/16 11:37 12:29 18:01 WBC RBC Hgb Hct MCV MCH MCHC RDW Plt Count Lymph % (Auto) [place] % (Auto) Lymph # [place] # Baso # Seg Neutrophils % Seg Neuts % (Manual) Lymphocytes % (Manual) Monocytes % (Manual) Eosinophils % (Manual) Basophils % (Manual) Nucleated RBC % Seg Neutrophils # Seg Neutrophils # Man Lymphocytes # (Manual) Monocytes # (Manual) Eosinophils # (Manual) PT INR Fibrinogen dRVVT Confirm Interp Factor V Activity POC ABG pH POC ABG pCO2 18.9 L POC ABG pO2 143 H Sodium Potassium Chloride Carbon Dioxide BUN Creatinine Glucose POC Glucose 153 H 108 H Lactic Acid Calcium Phosphorus Magnesium Direct Bilirubin AST ALT Alkaline Phosphatase Troponin T C-Reactive Protein Total Protein Albumin Prealbumin Triglycerides Cholesterol LDL Cholesterol Direct HDL Cholesterol Urine pH Urine WBC (Auto) Urine Creatinine Urine Total Protein Vancomycin Trough Rheumatoid Factor Complement C4 Miscellaneous Test Crossmatch 09/23/16 09/23/16 09/24/16 21:19 23:43 05:16 WBC RBC Hgb Hct MCV MCH MCHC RDW Plt Count Lymph % (Auto) [place] % (Auto) Lymph # [place] # Baso # Seg Neutrophils % Seg Neuts % (Manual) Lymphocytes % (Manual) Monocytes % (Manual) Eosinophils % (Manual) Basophils % (Manual) Nucleated RBC % Seg Neutrophils # Seg Neutrophils # Man Lymphocytes # (Manual) Monocytes # (Manual) Eosinophils # (Manual) PT INR Fibrinogen dRVVT Confirm Interp Factor V Activity POC ABG pH POC ABG pCO2 17.3 L POC ABG pO2 112 H Sodium Potassium Chloride Carbon Dioxide BUN Creatinine Glucose POC Glucose 143 H 164 H Lactic Acid Calcium Phosphorus Magnesium Direct Bilirubin AST ALT Alkaline Phosphatase Troponin T C-Reactive Protein Total Protein Albumin Prealbumin Triglycerides Cholesterol LDL Cholesterol Direct HDL Cholesterol Urine pH Urine WBC (Auto) Urine Creatinine Urine Total Protein Vancomycin Trough Rheumatoid Factor Complement C4 Miscellaneous Test Crossmatch 09/24/16 09/24/16 09/24/16 05:21 11:58 17:06 WBC RBC Hgb Hct MCV MCH MCHC RDW Plt Count Lymph % (Auto) [place] % (Auto) Lymph # [place] # Baso # Seg Neutrophils % Seg Neuts % (Manual) Lymphocytes % (Manual) Monocytes % (Manual) Eosinophils % (Manual) Basophils % (Manual) Nucleated RBC % Seg Neutrophils # Seg Neutrophils # Man Lymphocytes # (Manual) Monocytes # (Manual) Eosinophils # (Manual) PT INR Fibrinogen dRVVT Confirm Interp Factor V Activity POC ABG pH POC ABG pCO2 POC ABG pO2 Sodium Potassium Chloride Carbon Dioxide 10 L BUN 103 H Creatinine 4.3 H Glucose 163 H POC Glucose 173 H 167 H Lactic Acid Calcium 6.5 L Phosphorus Magnesium Direct Bilirubin AST ALT Alkaline Phosphatase Troponin T C-Reactive Protein Total Protein Albumin Prealbumin Triglycerides Cholesterol LDL Cholesterol Direct HDL Cholesterol Urine pH Urine WBC (Auto) Urine Creatinine Urine Total Protein Vancomycin Trough Rheumatoid Factor Complement C4 Miscellaneous Test Crossmatch 09/24/16 09/24/16 09/24/16 20:15 21:02 23:48 WBC RBC Hgb Hct MCV MCH MCHC RDW Plt Count Lymph % (Auto) [place] % (Auto) Lymph # [place] # Baso # Seg Neutrophils % Seg Neuts % (Manual) Lymphocytes % (Manual) Monocytes % (Manual) Eosinophils % (Manual) Basophils % (Manual) Nucleated RBC % Seg Neutrophils # Seg Neutrophils # Man Lymphocytes # (Manual) Monocytes # (Manual) Eosinophils # (Manual) PT INR Fibrinogen dRVVT Confirm Interp Factor V Activity POC ABG pH 7.288 L POC ABG pCO2 30.2 L 21.5 L POC ABG pO2 32 L 39 L Sodium Potassium Chloride Carbon Dioxide BUN Creatinine Glucose POC Glucose 109 H Lactic Acid Calcium Phosphorus Magnesium Direct Bilirubin AST ALT Alkaline Phosphatase Troponin T C-Reactive Protein Total Protein Albumin Prealbumin Triglycerides Cholesterol LDL Cholesterol Direct HDL Cholesterol Urine pH Urine WBC (Auto) Urine Creatinine Urine Total Protein Vancomycin Trough Rheumatoid Factor Complement C4 Miscellaneous Test Crossmatch 09/25/16 09/25/16 09/25/16 04:20 04:20 04:20 WBC RBC 2.58 L Hgb 7.0 L Hct 21.0 L MCV MCH 27 L MCHC RDW 23.8 H Plt Count Lymph % (Auto) [place] % (Auto) Lymph # [place] # Baso # Seg Neutrophils % Seg Neuts % (Manual) Lymphocytes % (Manual) 12.0 L Monocytes % (Manual) Eosinophils % (Manual) 7.0 H Basophils % (Manual) 2.0 H Nucleated RBC % Seg Neutrophils # Seg Neutrophils # Man Lymphocytes # (Manual) 0.9 L Monocytes # (Manual) Eosinophils # (Manual) 0.5 H PT INR Fibrinogen dRVVT Confirm Interp Factor V Activity POC ABG pH POC ABG pCO2 POC ABG pO2 Sodium Potassium Chloride Carbon Dioxide 15 L BUN 72 H Creatinine 3.8 H Glucose POC Glucose Lactic Acid Calcium 6.0 L Phosphorus 4.60 H Magnesium 1.60 L Direct Bilirubin AST ALT Alkaline Phosphatase Troponin T C-Reactive Protein Total Protein Albumin Prealbumin Triglycerides Cholesterol LDL Cholesterol Direct HDL Cholesterol Urine pH Urine WBC (Auto) Urine Creatinine Urine Total Protein Vancomycin Trough Rheumatoid Factor Complement C4 Miscellaneous Test Crossmatch 09/25/16 09/25/16 09/25/16 04:57 08:02 10:30 WBC RBC Hgb Hct MCV MCH MCHC RDW Plt Count Lymph % (Auto) [place] % (Auto) Lymph # [place] # Baso # Seg Neutrophils % Seg Neuts % (Manual) Lymphocytes % (Manual) Monocytes % (Manual) Eosinophils % (Manual) Basophils % (Manual) Nucleated RBC % Seg Neutrophils # Seg Neutrophils # Man Lymphocytes # (Manual) Monocytes # (Manual) Eosinophils # (Manual) PT INR Fibrinogen dRVVT Confirm Interp Factor V Activity POC ABG pH POC ABG pCO2 24.7 L POC ABG pO2 152 H Sodium Potassium Chloride Carbon Dioxide BUN Creatinine Glucose POC Glucose 113 H Lactic Acid Calcium Phosphorus Magnesium Direct Bilirubin AST ALT Alkaline Phosphatase Troponin T C-Reactive Protein Total Protein Albumin Prealbumin Triglycerides Cholesterol LDL Cholesterol Direct HDL Cholesterol Urine pH Urine WBC (Auto) Urine Creatinine Urine Total Protein Vancomycin Trough Rheumatoid Factor Complement C4 Miscellaneous Test Crossmatch See Detail 09/25/16 09/25/16 09/25/16 12:05 17:44 23:47 WBC RBC Hgb Hct MCV MCH MCHC RDW Plt Count Lymph % (Auto) [place] % (Auto) Lymph # [place] # Baso # Seg Neutrophils % Seg Neuts % (Manual) Lymphocytes % (Manual) Monocytes % (Manual) Eosinophils % (Manual) Basophils % (Manual) Nucleated RBC % Seg Neutrophils # Seg Neutrophils # Man Lymphocytes # (Manual) Monocytes # (Manual) Eosinophils # (Manual) PT INR Fibrinogen dRVVT Confirm Interp Factor V Activity POC ABG pH POC ABG pCO2 POC ABG pO2 Sodium Potassium Chloride Carbon Dioxide BUN Creatinine Glucose POC Glucose 117 H 119 H 150 H Lactic Acid Calcium Phosphorus Magnesium Direct Bilirubin AST ALT Alkaline Phosphatase Troponin T C-Reactive Protein Total Protein Albumin Prealbumin Triglycerides Cholesterol LDL Cholesterol Direct HDL Cholesterol Urine pH Urine WBC (Auto) Urine Creatinine Urine Total Protein Vancomycin Trough Rheumatoid Factor Complement C4 Miscellaneous Test Crossmatch 09/26/16 09/26/16 09/26/16 04:25 04:25 04:25 WBC RBC 2.65 L Hgb 7.4 L Hct 21.6 L MCV MCH MCHC RDW 22.5 H Plt Count Lymph % (Auto) [place] % (Auto) Lymph # [place] # Baso # Seg Neutrophils % Seg Neuts % (Manual) Lymphocytes % (Manual) 6.0 L Monocytes % (Manual) Eosinophils % (Manual) 11.0 H Basophils % (Manual) Nucleated RBC % Seg Neutrophils # Seg Neutrophils # Man Lymphocytes # (Manual) 0.4 L Monocytes # (Manual) Eosinophils # (Manual) 0.6 H PT INR Fibrinogen dRVVT Confirm Interp Factor V Activity POC ABG pH POC ABG pCO2 POC ABG pO2 Sodium Potassium Chloride 97.0 L Carbon Dioxide 19 L BUN 43 H Creatinine 2.6 H Glucose 130 H POC Glucose Lactic Acid 4.40 H* Calcium 6.7 L Phosphorus Magnesium Direct Bilirubin AST ALT Alkaline Phosphatase Troponin T C-Reactive Protein Total Protein Albumin Prealbumin Triglycerides Cholesterol LDL Cholesterol Direct HDL Cholesterol Urine pH Urine WBC (Auto) Urine Creatinine Urine Total Protein Vancomycin Trough Rheumatoid Factor Complement C4 Miscellaneous Test Crossmatch 09/26/16 09/26/16 09/26/16 05:20 11:44 12:12 WBC RBC Hgb Hct MCV MCH MCHC RDW Plt Count Lymph % (Auto) [place] % (Auto) Lymph # [place] # Baso # Seg Neutrophils % Seg Neuts % (Manual) Lymphocytes % (Manual) Monocytes % (Manual) Eosinophils % (Manual) Basophils % (Manual) Nucleated RBC % Seg Neutrophils # Seg Neutrophils # Man Lymphocytes # (Manual) Monocytes # (Manual) Eosinophils # (Manual) PT INR Fibrinogen dRVVT Confirm Interp Factor V Activity POC ABG pH POC ABG pCO2 27.0 L POC ABG pO2 69 L Sodium Potassium Chloride Carbon Dioxide BUN Creatinine Glucose POC Glucose 121 H 128 H Lactic Acid Calcium Phosphorus Magnesium Direct Bilirubin AST ALT Alkaline Phosphatase Troponin T C-Reactive Protein Total Protein Albumin Prealbumin Triglycerides Cholesterol LDL Cholesterol Direct HDL Cholesterol Urine pH Urine WBC (Auto) Urine Creatinine Urine Total Protein Vancomycin Trough Rheumatoid Factor Complement C4 Miscellaneous Test Crossmatch 09/26/16 09/26/16 09/27/16 18:31 23:40 08:20 WBC RBC Hgb Hct MCV MCH MCHC RDW Plt Count Lymph % (Auto) [place] % (Auto) Lymph # [place] # Baso # Seg Neutrophils % Seg Neuts % (Manual) Lymphocytes % (Manual) Monocytes % (Manual) Eosinophils % (Manual) Basophils % (Manual) Nucleated RBC % Seg Neutrophils # Seg Neutrophils # Man Lymphocytes # (Manual) Monocytes # (Manual) Eosinophils # (Manual) PT INR Fibrinogen dRVVT Confirm Interp Factor V Activity POC ABG pH POC ABG pCO2 POC ABG pO2 Sodium Potassium Chloride Carbon Dioxide BUN Creatinine Glucose POC Glucose 120 H 133 H Lactic Acid 4.10 H* Calcium Phosphorus Magnesium Direct Bilirubin AST ALT Alkaline Phosphatase Troponin T C-Reactive Protein Total Protein Albumin Prealbumin Triglycerides Cholesterol LDL Cholesterol Direct HDL Cholesterol Urine pH Urine WBC (Auto) Urine Creatinine Urine Total Protein Vancomycin Trough Rheumatoid Factor Complement C4 Miscellaneous Test Crossmatch 09/27/16 09/27/16 09/27/16 11:23 15:00 18:15 WBC RBC Hgb Hct MCV MCH MCHC RDW Plt Count Lymph % (Auto) [place] % (Auto) Lymph # [place] # Baso # Seg Neutrophils % Seg Neuts % (Manual) Lymphocytes % (Manual) Monocytes % (Manual) Eosinophils % (Manual) Basophils % (Manual) Nucleated RBC % Seg Neutrophils # Seg Neutrophils # Man Lymphocytes # (Manual) Monocytes # (Manual) Eosinophils # (Manual) PT INR Fibrinogen dRVVT Confirm Interp Factor V Activity POC ABG pH 7.459 H POC ABG pCO2 27.1 L POC ABG pO2 140 H Sodium Potassium Chloride Carbon Dioxide BUN Creatinine Glucose POC Glucose 114 H 127 H Lactic Acid Calcium Phosphorus Magnesium Direct Bilirubin AST ALT Alkaline Phosphatase Troponin T C-Reactive Protein Total Protein Albumin Prealbumin Triglycerides Cholesterol LDL Cholesterol Direct HDL Cholesterol Urine pH Urine WBC (Auto) Urine Creatinine Urine Total Protein Vancomycin Trough Rheumatoid Factor Complement C4 Miscellaneous Test Crossmatch 09/27/16 09/27/16 09/28/16 Unknown Unknown 03:45 WBC RBC 2.49 L Hgb 6.8 L Hct 20.7 L MCV MCH 27 L MCHC RDW 22.1 H Plt Count Lymph % (Auto) [place] % (Auto) Lymph # [place] # Baso # Seg Neutrophils % Seg Neuts % (Manual) 32.0 L Lymphocytes % (Manual) 12.0 L Monocytes % (Manual) 11.0 H Eosinophils % (Manual) 10.0 H Basophils % (Manual) Nucleated RBC % Seg Neutrophils # Seg Neutrophils # Man Lymphocytes # (Manual) 1.0 L Monocytes # (Manual) 0.9 H Eosinophils # (Manual) 0.8 H PT INR Fibrinogen dRVVT Confirm Interp Factor V Activity POC ABG pH POC ABG pCO2 POC ABG pO2 Sodium 135 L 135 L Potassium 3.5 L Chloride 93.6 L 94.4 L Carbon Dioxide 17 L 21 L BUN 45 H 28 H Creatinine 3.3 H 2.5 H Glucose 106 H POC Glucose Lactic Acid Calcium 7.3 L 7.1 L Phosphorus Magnesium Direct Bilirubin AST ALT Alkaline Phosphatase Troponin T C-Reactive Protein Total Protein Albumin Prealbumin Triglycerides Cholesterol LDL Cholesterol Direct HDL Cholesterol Urine pH Urine WBC (Auto) Urine Creatinine Urine Total Protein Vancomycin Trough Rheumatoid Factor Complement C4 Miscellaneous Test Crossmatch 09/28/16 09/28/16 09/28/16 03:45 07:25 11:58 WBC 13.3 H RBC 3.01 L Hgb 8.4 L Hct 25.0 L MCV MCH MCHC RDW 20.5 H Plt Count 128 L Lymph % (Auto) [place] % (Auto) Lymph # [place] # Baso # Seg Neutrophils % Seg Neuts % (Manual) Lymphocytes % (Manual) 7.0 L Monocytes % (Manual) Eosinophils % (Manual) 6.0 H Basophils % (Manual) Nucleated RBC % Seg Neutrophils # Seg Neutrophils # Man Lymphocytes # (Manual) 0.9 L Monocytes # (Manual) Eosinophils # (Manual) 0.8 H PT INR Fibrinogen dRVVT Confirm Interp Factor V Activity POC ABG pH POC ABG pCO2 POC ABG pO2 Sodium Potassium Chloride Carbon Dioxide BUN Creatinine Glucose POC Glucose 121 H Lactic Acid 4.50 H* Calcium Phosphorus Magnesium Direct Bilirubin AST ALT Alkaline Phosphatase Troponin T C-Reactive Protein Total Protein Albumin Prealbumin Triglycerides Cholesterol LDL Cholesterol Direct HDL Cholesterol Urine pH Urine WBC (Auto) Urine Creatinine Urine Total Protein Vancomycin Trough Rheumatoid Factor Complement C4 Miscellaneous Test Crossmatch 09/29/16 09/29/16 09/29/16 06:45 06:45 06:45 WBC 14.9 H RBC 2.74 L Hgb 7.6 L Hct 23.2 L MCV MCH MCHC RDW 20.5 H Plt Count 81 L Lymph % (Auto) [place] % (Auto) Lymph # [place] # Baso # Seg Neutrophils % Seg Neuts % (Manual) 81.0 H Lymphocytes % (Manual) 4.0 L Monocytes % (Manual) Eosinophils % (Manual) Basophils % (Manual) Nucleated RBC % Seg Neutrophils # Seg Neutrophils # Man 12.1 H Lymphocytes # (Manual) 0.6 L Monocytes # (Manual) Eosinophils # (Manual) PT INR Fibrinogen dRVVT Confirm Interp Factor V Activity POC ABG pH POC ABG pCO2 POC ABG pO2 Sodium 133 L Potassium 3.4 L Chloride 92.5 L Carbon Dioxide 21 L BUN 33 H Creatinine 3.0 H Glucose POC Glucose Lactic Acid Calcium 6.6 L Phosphorus Magnesium 1.40 L Direct Bilirubin 0.9 H AST ALT Alkaline Phosphatase Troponin T C-Reactive Protein Total Protein 4.3 L Albumin 1.3 L Prealbumin Triglycerides Cholesterol LDL Cholesterol Direct HDL Cholesterol Urine pH Urine WBC (Auto) Urine Creatinine Urine Total Protein Vancomycin Trough Rheumatoid Factor Complement C4 Miscellaneous Test Crossmatch 09/29/16 09/29/16 09/30/16 17:52 20:12 00:07 WBC RBC Hgb Hct MCV MCH MCHC RDW Plt Count Lymph % (Auto) [place] % (Auto) Lymph # [place] # Baso # Seg Neutrophils % Seg Neuts % (Manual) Lymphocytes % (Manual) Monocytes % (Manual) Eosinophils % (Manual) Basophils % (Manual) Nucleated RBC % Seg Neutrophils # Seg Neutrophils # Man Lymphocytes # (Manual) Monocytes # (Manual) Eosinophils # (Manual) PT INR Fibrinogen dRVVT Confirm Interp Factor V Activity POC ABG pH POC ABG pCO2 POC ABG pO2 Sodium Potassium Chloride Carbon Dioxide BUN Creatinine Glucose POC Glucose 50 L 51 L Lactic Acid Calcium Phosphorus Magnesium Direct Bilirubin AST ALT Alkaline Phosphatase Troponin T 0.204 H* C-Reactive Protein Total Protein Albumin Prealbumin Triglycerides Cholesterol 31 L LDL Cholesterol Direct 4 L HDL Cholesterol 3 L Urine pH Urine WBC (Auto) Urine Creatinine Urine Total Protein Vancomycin Trough Rheumatoid Factor Complement C4 Miscellaneous Test Crossmatch 09/30/16 09/30/16 09/30/16 01:30 05:15 06:10 WBC RBC Hgb Hct MCV MCH MCHC RDW Plt Count Lymph % (Auto) [place] % (Auto) Lymph # [place] # Baso # Seg Neutrophils % Seg Neuts % (Manual) Lymphocytes % (Manual) Monocytes % (Manual) Eosinophils % (Manual) Basophils % (Manual) Nucleated RBC % Seg Neutrophils # Seg Neutrophils # Man Lymphocytes # (Manual) Monocytes # (Manual) Eosinophils # (Manual) PT INR Fibrinogen dRVVT Confirm Interp Factor V Activity POC ABG pH POC ABG pCO2 POC ABG pO2 Sodium 133 L Potassium 3.2 L Chloride 93.2 L Carbon Dioxide 19 L BUN 36 H Creatinine 3.2 H Glucose 104 H POC Glucose 167 H 146 H Lactic Acid Calcium 6.4 L Phosphorus Magnesium 1.60 L Direct Bilirubin AST ALT Alkaline Phosphatase Troponin T C-Reactive Protein Total Protein Albumin Prealbumin Triglycerides Cholesterol LDL Cholesterol Direct HDL Cholesterol Urine pH Urine WBC (Auto) Urine Creatinine Urine Total Protein Vancomycin Trough Rheumatoid Factor Complement C4 Miscellaneous Test Crossmatch 09/30/16 09/30/16 09/30/16 11:26 13:39 18:38 WBC RBC Hgb Hct MCV MCH MCHC RDW Plt Count Lymph % (Auto) [place] % (Auto) Lymph # [place] # Baso # Seg Neutrophils % Seg Neuts % (Manual) Lymphocytes % (Manual) Monocytes % (Manual) Eosinophils % (Manual) Basophils % (Manual) Nucleated RBC % Seg Neutrophils # Seg Neutrophils # Man Lymphocytes # (Manual) Monocytes # (Manual) Eosinophils # (Manual) PT INR Fibrinogen dRVVT Confirm Interp Factor V Activity POC ABG pH 7.479 H POC ABG pCO2 29.8 L POC ABG pO2 117 H Sodium Potassium Chloride Carbon Dioxide BUN Creatinine Glucose POC Glucose 140 H 122 H Lactic Acid Calcium Phosphorus Magnesium Direct Bilirubin AST ALT Alkaline Phosphatase Troponin T C-Reactive Protein Total Protein Albumin Prealbumin Triglycerides Cholesterol LDL Cholesterol Direct HDL Cholesterol Urine pH Urine WBC (Auto) Urine Creatinine Urine Total Protein Vancomycin Trough Rheumatoid Factor Complement C4 Miscellaneous Test Crossmatch 10/01/16 10/01/16 10/01/16 06:00 06:00 12:37 WBC 12.6 H RBC 2.75 L Hgb 7.3 L Hct 23.3 L MCV MCH 27 L MCHC RDW 20.6 H Plt Count 72 L Lymph % (Auto) [place] % (Auto) Lymph # [place] # Baso # Seg Neutrophils % Seg Neuts % (Manual) 31.0 L Lymphocytes % (Manual) 8.0 L Monocytes % (Manual) Eosinophils % (Manual) Basophils % (Manual) Nucleated RBC % 3.0 H Seg Neutrophils # Seg Neutrophils # Man Lymphocytes # (Manual) 1.0 L Monocytes # (Manual) Eosinophils # (Manual) PT INR Fibrinogen dRVVT Confirm Interp Factor V Activity POC ABG pH POC ABG pCO2 POC ABG pO2 Sodium 127 L Potassium Chloride 86.8 L Carbon Dioxide 20 L BUN 42 H Creatinine 3.5 H Glucose POC Glucose 65 L Lactic Acid Calcium 7.0 L Phosphorus Magnesium Direct Bilirubin AST ALT Alkaline Phosphatase Troponin T C-Reactive Protein Total Protein Albumin Prealbumin Triglycerides Cholesterol LDL Cholesterol Direct HDL Cholesterol Urine pH Urine WBC (Auto) Urine Creatinine Urine Total Protein Vancomycin Trough Rheumatoid Factor Complement C4 Miscellaneous Test Crossmatch 10/01/16 10/01/16 10/02/16 17:39 23:32 00:59 WBC RBC Hgb Hct MCV MCH MCHC RDW Plt Count Lymph % (Auto) [place] % (Auto) Lymph # [place] # Baso # Seg Neutrophils % Seg Neuts % (Manual) Lymphocytes % (Manual) Monocytes % (Manual) Eosinophils % (Manual) Basophils % (Manual) Nucleated RBC % Seg Neutrophils # Seg Neutrophils # Man Lymphocytes # (Manual) Monocytes # (Manual) Eosinophils # (Manual) PT INR Fibrinogen dRVVT Confirm Interp Factor V Activity POC ABG pH POC ABG pCO2 POC ABG pO2 Sodium Potassium Chloride Carbon Dioxide BUN Creatinine Glucose POC Glucose 107 H 52 L 145 H Lactic Acid Calcium Phosphorus Magnesium Direct Bilirubin AST ALT Alkaline Phosphatase Troponin T C-Reactive Protein Total Protein Albumin Prealbumin Triglycerides Cholesterol LDL Cholesterol Direct HDL Cholesterol Urine pH Urine WBC (Auto) Urine Creatinine Urine Total Protein Vancomycin Trough Rheumatoid Factor Complement C4 Miscellaneous Test Crossmatch 10/02/16 10/02/16 10/02/16 10:30 10:50 10:50 WBC 14.7 H RBC 2.76 L Hgb 7.4 L Hct 23.6 L MCV MCH 27 L MCHC RDW 20.2 H Plt Count 79 L Lymph % (Auto) [place] % (Auto) Lymph # [place] # Baso # Seg Neutrophils % Seg Neuts % (Manual) 86.0 H Lymphocytes % (Manual) 6.0 L Monocytes % (Manual) Eosinophils % (Manual) Basophils % (Manual) Nucleated RBC % Seg Neutrophils # Seg Neutrophils # Man 12.6 H Lymphocytes # (Manual) 0.9 L Monocytes # (Manual) Eosinophils # (Manual) PT INR Fibrinogen dRVVT Confirm Interp Factor V Activity POC ABG pH 7.486 H POC ABG pCO2 30.1 L POC ABG pO2 108 H Sodium 131 L Potassium 3.4 L Chloride 89.9 L Carbon Dioxide BUN 26 H Creatinine 2.6 H Glucose POC Glucose Lactic Acid Calcium 7.0 L Phosphorus Magnesium Direct Bilirubin AST ALT Alkaline Phosphatase Troponin T C-Reactive Protein Total Protein Albumin Prealbumin Triglycerides Cholesterol LDL Cholesterol Direct HDL Cholesterol Urine pH Urine WBC (Auto) Urine Creatinine Urine Total Protein Vancomycin Trough Rheumatoid Factor Complement C4 Miscellaneous Test Crossmatch 10/02/16 10/03/16 10/03/16 23:45 00:45 05:10 WBC 12.9 H RBC 2.77 L Hgb 7.6 L Hct 23.7 L MCV MCH 27 L MCHC RDW 19.7 H Plt Count 89 L Lymph % (Auto) [place] % (Auto) Lymph # [place] # Baso # Seg Neutrophils % Seg Neuts % (Manual) Lymphocytes % (Manual) 8.0 L Monocytes % (Manual) Eosinophils % (Manual) Basophils % (Manual) Nucleated RBC % Seg Neutrophils # 11.9 H Seg Neutrophils # Man Lymphocytes # (Manual) 1.0 L Monocytes # (Manual) Eosinophils # (Manual) PT INR Fibrinogen dRVVT Confirm Interp Factor V Activity POC ABG pH POC ABG pCO2 POC ABG pO2 Sodium Potassium Chloride Carbon Dioxide BUN Creatinine Glucose POC Glucose 55 L 199 H Lactic Acid Calcium Phosphorus Magnesium Direct Bilirubin AST ALT Alkaline Phosphatase Troponin T C-Reactive Protein Total Protein Albumin Prealbumin Triglycerides Cholesterol LDL Cholesterol Direct HDL Cholesterol Urine pH Urine WBC (Auto) Urine Creatinine Urine Total Protein Vancomycin Trough Rheumatoid Factor Complement C4 Miscellaneous Test Crossmatch 10/03/16 10/03/16 10/03/16 05:10 12:14 13:18 WBC RBC Hgb Hct MCV MCH MCHC RDW Plt Count Lymph % (Auto) [place] % (Auto) Lymph # [place] # Baso # Seg Neutrophils % Seg Neuts % (Manual) Lymphocytes % (Manual) Monocytes % (Manual) Eosinophils % (Manual) Basophils % (Manual) Nucleated RBC % Seg Neutrophils # Seg Neutrophils # Man Lymphocytes # (Manual) Monocytes # (Manual) Eosinophils # (Manual) PT INR Fibrinogen dRVVT Confirm Interp Factor V Activity POC ABG pH POC ABG pCO2 POC ABG pO2 Sodium 129 L Potassium 3.3 L Chloride 88.8 L Carbon Dioxide 20 L BUN 29 H Creatinine 2.8 H Glucose POC Glucose 68 L 127 H Lactic Acid Calcium 7.2 L Phosphorus Magnesium Direct Bilirubin AST ALT Alkaline Phosphatase Troponin T C-Reactive Protein Total Protein Albumin Prealbumin Triglycerides Cholesterol LDL Cholesterol Direct HDL Cholesterol Urine pH Urine WBC (Auto) Urine Creatinine Urine Total Protein Vancomycin Trough Rheumatoid Factor Complement C4 Miscellaneous Test Crossmatch 10/03/16 10/03/16 10/03/16 14:42 18:21 19:09 WBC RBC Hgb Hct MCV MCH MCHC RDW Plt Count Lymph % (Auto) [place] % (Auto) Lymph # [place] # Baso # Seg Neutrophils % Seg Neuts % (Manual) Lymphocytes % (Manual) Monocytes % (Manual) Eosinophils % (Manual) Basophils % (Manual) Nucleated RBC % Seg Neutrophils # Seg Neutrophils # Man Lymphocytes # (Manual) Monocytes # (Manual) Eosinophils # (Manual) PT INR Fibrinogen dRVVT Confirm Interp Factor V Activity POC ABG pH 7.499 H POC ABG pCO2 28.4 L POC ABG pO2 44 L Sodium Potassium Chloride Carbon Dioxide BUN Creatinine Glucose POC Glucose 64 L 205 H Lactic Acid Calcium Phosphorus Magnesium Direct Bilirubin AST ALT Alkaline Phosphatase Troponin T C-Reactive Protein Total Protein Albumin Prealbumin Triglycerides Cholesterol LDL Cholesterol Direct HDL Cholesterol Urine pH Urine WBC (Auto) Urine Creatinine Urine Total Protein Vancomycin Trough Rheumatoid Factor Complement C4 Miscellaneous Test Crossmatch 10/03/16 10/04/16 10/04/16 23:33 04:18 06:30 WBC RBC 2.54 L Hgb 7.1 L Hct 21.7 L MCV MCH MCHC RDW 19.5 H Plt Count 76 L Lymph % (Auto) [place] % (Auto) Lymph # [place] # Baso # Seg Neutrophils % Seg Neuts % (Manual) 88.0 H Lymphocytes % (Manual) 6.0 L Monocytes % (Manual) Eosinophils % (Manual) Basophils % (Manual) Nucleated RBC % Seg Neutrophils # Seg Neutrophils # Man 8.8 H Lymphocytes # (Manual) 0.6 L Monocytes # (Manual) Eosinophils # (Manual) PT INR Fibrinogen dRVVT Confirm Interp Factor V Activity POC ABG pH 7.461 H POC ABG pCO2 33.6 L POC ABG pO2 211 H Sodium Potassium Chloride Carbon Dioxide BUN Creatinine Glucose POC Glucose 136 H Lactic Acid Calcium Phosphorus Magnesium Direct Bilirubin AST ALT Alkaline Phosphatase Troponin T C-Reactive Protein Total Protein Albumin Prealbumin Triglycerides Cholesterol LDL Cholesterol Direct HDL Cholesterol Urine pH Urine WBC (Auto) Urine Creatinine Urine Total Protein Vancomycin Trough Rheumatoid Factor Complement C4 Miscellaneous Test Crossmatch 10/04/16 10/04/16 10/04/16 06:30 11:45 17:54 WBC RBC Hgb Hct MCV MCH MCHC RDW Plt Count Lymph % (Auto) [place] % (Auto) Lymph # [place] # Baso # Seg Neutrophils % Seg Neuts % (Manual) Lymphocytes % (Manual) Monocytes % (Manual) Eosinophils % (Manual) Basophils % (Manual) Nucleated RBC % Seg Neutrophils # Seg Neutrophils # Man Lymphocytes # (Manual) Monocytes # (Manual) Eosinophils # (Manual) PT INR Fibrinogen dRVVT Confirm Interp Factor V Activity POC ABG pH POC ABG pCO2 POC ABG pO2 Sodium 128 L Potassium Chloride 87.4 L Carbon Dioxide 20 L BUN 34 H Creatinine 2.9 H Glucose 127 H POC Glucose 158 H 160 H Lactic Acid Calcium 7.4 L Phosphorus Magnesium Direct Bilirubin AST ALT Alkaline Phosphatase Troponin T C-Reactive Protein Total Protein Albumin Prealbumin Triglycerides Cholesterol LDL Cholesterol Direct HDL Cholesterol Urine pH Urine WBC (Auto) Urine Creatinine Urine Total Protein Vancomycin Trough Rheumatoid Factor Complement C4 Miscellaneous Test Crossmatch 10/04/16 10/05/16 10/05/16 23:25 04:30 05:00 WBC RBC 2.64 L Hgb 7.5 L Hct 22.6 L MCV MCH MCHC RDW 19.3 H Plt Count 80 L Lymph % (Auto) [place] % (Auto) Lymph # [place] # Baso # Seg Neutrophils % Seg Neuts % (Manual) Lymphocytes % (Manual) 12.0 L Monocytes % (Manual) Eosinophils % (Manual) Basophils % (Manual) Nucleated RBC % Seg Neutrophils # Seg Neutrophils # Man Lymphocytes # (Manual) Monocytes # (Manual) Eosinophils # (Manual) PT INR Fibrinogen dRVVT Confirm Interp Factor V Activity POC ABG pH 7.475 H POC ABG pCO2 33.3 L POC ABG pO2 140 H Sodium Potassium Chloride Carbon Dioxide BUN Creatinine Glucose POC Glucose 141 H Lactic Acid Calcium Phosphorus Magnesium Direct Bilirubin AST ALT Alkaline Phosphatase Troponin T C-Reactive Protein Total Protein Albumin Prealbumin Triglycerides Cholesterol LDL Cholesterol Direct HDL Cholesterol Urine pH Urine WBC (Auto) Urine Creatinine Urine Total Protein Vancomycin Trough Rheumatoid Factor Complement C4 Miscellaneous Test Crossmatch 10/05/16 10/05/16 10/05/16 05:00 05:09 12:58 WBC RBC Hgb Hct MCV MCH MCHC RDW Plt Count Lymph % (Auto) [place] % (Auto) Lymph # [place] # Baso # Seg Neutrophils % Seg Neuts % (Manual) Lymphocytes % (Manual) Monocytes % (Manual) Eosinophils % (Manual) Basophils % (Manual) Nucleated RBC % Seg Neutrophils # Seg Neutrophils # Man Lymphocytes # (Manual) Monocytes # (Manual) Eosinophils # (Manual) PT INR Fibrinogen dRVVT Confirm Interp Factor V Activity POC ABG pH POC ABG pCO2 POC ABG pO2 Sodium 131 L Potassium Chloride 94.0 L Carbon Dioxide 20 L BUN 22 H Creatinine 2.0 H Glucose 123 H POC Glucose 166 H 179 H Lactic Acid Calcium 7.7 L Phosphorus 2.20 L D Magnesium Direct Bilirubin AST ALT Alkaline Phosphatase Troponin T C-Reactive Protein Total Protein Albumin Prealbumin Triglycerides Cholesterol LDL Cholesterol Direct HDL Cholesterol Urine pH Urine WBC (Auto) Urine Creatinine Urine Total Protein Vancomycin Trough Rheumatoid Factor Complement C4 Miscellaneous Test Crossmatch 10/05/16 10/05/16 10/05/16 15:50 18:53 23:12 WBC RBC Hgb Hct MCV MCH MCHC RDW Plt Count Lymph % (Auto) [place] % (Auto) Lymph # [place] # Baso # Seg Neutrophils % Seg Neuts % (Manual) Lymphocytes % (Manual) Monocytes % (Manual) Eosinophils % (Manual) Basophils % (Manual) Nucleated RBC % Seg Neutrophils # Seg Neutrophils # Man Lymphocytes # (Manual) Monocytes # (Manual) Eosinophils # (Manual) PT INR Fibrinogen dRVVT Confirm Interp Factor V Activity POC ABG pH POC ABG pCO2 POC ABG pO2 Sodium Potassium Chloride Carbon Dioxide BUN Creatinine Glucose POC Glucose 150 H 164 H Lactic Acid Calcium Phosphorus Magnesium Direct Bilirubin AST ALT Alkaline Phosphatase Troponin T C-Reactive Protein Total Protein Albumin Prealbumin Triglycerides Cholesterol LDL Cholesterol Direct HDL Cholesterol Urine pH Urine WBC (Auto) Urine Creatinine Urine Total Protein Vancomycin Trough Rheumatoid Factor Complement C4 Miscellaneous Test Crossmatch See Detail 10/06/16 10/06/16 10/06/16 03:50 03:50 04:53 WBC RBC 3.00 L Hgb 8.6 L Hct 25.8 L MCV MCH MCHC RDW 17.9 H Plt Count 65 L Lymph % (Auto) [place] % (Auto) Lymph # [place] # Baso # Seg Neutrophils % Seg Neuts % (Manual) 30.0 L Lymphocytes % (Manual) 5.0 L Monocytes % (Manual) Eosinophils % (Manual) Basophils % (Manual) Nucleated RBC % Seg Neutrophils # Seg Neutrophils # Man Lymphocytes # (Manual) 0.4 L Monocytes # (Manual) Eosinophils # (Manual) PT INR Fibrinogen dRVVT Confirm Interp Factor V Activity POC ABG pH 7.310 L POC ABG pCO2 49.0 H POC ABG pO2 Sodium 133 L Potassium Chloride 95.9 L Carbon Dioxide BUN 26 H Creatinine 2.0 H Glucose 116 H POC Glucose Lactic Acid Calcium 7.8 L Phosphorus Magnesium Direct Bilirubin AST ALT Alkaline Phosphatase Troponin T C-Reactive Protein Total Protein Albumin Prealbumin Triglycerides Cholesterol LDL Cholesterol Direct HDL Cholesterol Urine pH Urine WBC (Auto) Urine Creatinine Urine Total Protein Vancomycin Trough Rheumatoid Factor Complement C4 Miscellaneous Test Crossmatch 10/06/16 10/06/16 10/06/16 05:23 11:52 18:34 WBC RBC Hgb Hct MCV MCH MCHC RDW Plt Count Lymph % (Auto) [place] % (Auto) Lymph # [place] # Baso # Seg Neutrophils % Seg Neuts % (Manual) Lymphocytes % (Manual) Monocytes % (Manual) Eosinophils % (Manual) Basophils % (Manual) Nucleated RBC % Seg Neutrophils # Seg Neutrophils # Man Lymphocytes # (Manual) Monocytes # (Manual) Eosinophils # (Manual) PT INR Fibrinogen dRVVT Confirm Interp Factor V Activity POC ABG pH POC ABG pCO2 POC ABG pO2 Sodium Potassium Chloride Carbon Dioxide BUN Creatinine Glucose POC Glucose 126 H 116 H 129 H Lactic Acid Calcium Phosphorus Magnesium Direct Bilirubin AST ALT Alkaline Phosphatase Troponin T C-Reactive Protein Total Protein Albumin Prealbumin Triglycerides Cholesterol LDL Cholesterol Direct HDL Cholesterol Urine pH Urine WBC (Auto) Urine Creatinine Urine Total Protein Vancomycin Trough Rheumatoid Factor Complement C4 Miscellaneous Test Crossmatch 10/07/16 10/07/16 10/07/16 03:45 05:00 10:00 WBC 17.0 H RBC 2.68 L Hgb 7.3 L Hct 25.3 L MCV MCH 27 L MCHC 29 L RDW 19.6 H Plt Count 74 L Lymph % (Auto) [place] % (Auto) Lymph # [place] # Baso # Seg Neutrophils % Seg Neuts % (Manual) Lymphocytes % (Manual) 12.0 L Monocytes % (Manual) Eosinophils % (Manual) Basophils % (Manual) Nucleated RBC % 4.0 H Seg Neutrophils # Seg Neutrophils # Man 10.7 H Lymphocytes # (Manual) Monocytes # (Manual) Eosinophils # (Manual) PT INR Fibrinogen dRVVT Confirm Interp Factor V Activity POC ABG pH POC ABG pCO2 POC ABG pO2 Sodium 130 L Potassium 3.2 L Chloride 93.9 L Carbon Dioxide 20 L BUN 44 H Creatinine 2.7 H Glucose 129 H POC Glucose Lactic Acid Calcium 7.4 L Phosphorus Magnesium Direct Bilirubin AST ALT 6 L Alkaline Phosphatase 195 H Troponin T C-Reactive Protein Total Protein 4.9 L Albumin 1.0 L Prealbumin Triglycerides Cholesterol LDL Cholesterol Direct HDL Cholesterol Urine pH Urine WBC (Auto) Urine Creatinine Urine Total Protein Vancomycin Trough Rheumatoid Factor Complement C4 Miscellaneous Test Flexitest 1 H Crossmatch 10/07/16 10/07/16 10/07/16 10:00 11:24 18:10 WBC RBC Hgb Hct MCV MCH MCHC RDW Plt Count Lymph % (Auto) [place] % (Auto) Lymph # [place] # Baso # Seg Neutrophils % Seg Neuts % (Manual) Lymphocytes % (Manual) Monocytes % (Manual) Eosinophils % (Manual) Basophils % (Manual) Nucleated RBC % Seg Neutrophils # Seg Neutrophils # Man Lymphocytes # (Manual) Monocytes # (Manual) Eosinophils # (Manual) PT INR Fibrinogen dRVVT Confirm Interp Factor V Activity POC ABG pH POC ABG pCO2 POC ABG pO2 Sodium Potassium Chloride Carbon Dioxide BUN Creatinine Glucose POC Glucose 116 H 130 H Lactic Acid Calcium Phosphorus Magnesium Direct Bilirubin AST ALT Alkaline Phosphatase Troponin T C-Reactive Protein 19.40 H Total Protein Albumin Prealbumin Triglycerides Cholesterol LDL Cholesterol Direct HDL Cholesterol Urine pH Urine WBC (Auto) Urine Creatinine Urine Total Protein Vancomycin Trough Rheumatoid Factor Complement C4 Miscellaneous Test Crossmatch 10/07/16 10/08/16 10/08/16 18:30 00:00 04:00 WBC RBC Hgb Hct MCV MCH MCHC RDW Plt Count Lymph % (Auto) [place] % (Auto) Lymph # [place] # Baso # Seg Neutrophils % Seg Neuts % (Manual) Lymphocytes % (Manual) Monocytes % (Manual) Eosinophils % (Manual) Basophils % (Manual) Nucleated RBC % Seg Neutrophils # Seg Neutrophils # Man Lymphocytes # (Manual) Monocytes # (Manual) Eosinophils # (Manual) PT INR Fibrinogen dRVVT Confirm Interp Factor V Activity POC ABG pH POC ABG pCO2 POC ABG pO2 Sodium 132 L Potassium 3.3 L Chloride 93.6 L Carbon Dioxide 17 L BUN 59 H Creatinine 2.7 H Glucose 121 H POC Glucose 122 H Lactic Acid Calcium 7.6 L Phosphorus Magnesium Direct Bilirubin AST ALT Alkaline Phosphatase Troponin T C-Reactive Protein Total Protein Albumin Prealbumin Triglycerides Cholesterol LDL Cholesterol Direct HDL Cholesterol Urine pH Urine WBC (Auto) > 182.0 H Urine Creatinine Urine Total Protein Vancomycin Trough Rheumatoid Factor Complement C4 Miscellaneous Test Crossmatch 10/08/16 10/08/16 10/08/16 04:30 05:30 11:51 WBC RBC 5.15 H Hgb 14.4 H D Hct 44.5 H D MCV MCH MCHC RDW 19.5 H Plt Count 56 L Lymph % (Auto) [place] % (Auto) Lymph # [place] # Baso # Seg Neutrophils % Seg Neuts % (Manual) 24.0 L Lymphocytes % (Manual) 8.0 L Monocytes % (Manual) Eosinophils % (Manual) Basophils % (Manual) Nucleated RBC % 9.0 H Seg Neutrophils # Seg Neutrophils # Man Lymphocytes # (Manual) 0.7 L Monocytes # (Manual) Eosinophils # (Manual) PT INR Fibrinogen dRVVT Confirm Interp Factor V Activity POC ABG pH POC ABG pCO2 POC ABG pO2 Sodium Potassium Chloride Carbon Dioxide BUN Creatinine Glucose POC Glucose 125 H 150 H Lactic Acid Calcium Phosphorus Magnesium Direct Bilirubin AST ALT Alkaline Phosphatase Troponin T C-Reactive Protein Total Protein Albumin Prealbumin Triglycerides Cholesterol LDL Cholesterol Direct HDL Cholesterol Urine pH Urine WBC (Auto) Urine Creatinine Urine Total Protein Vancomycin Trough Rheumatoid Factor Complement C4 Miscellaneous Test Crossmatch 10/08/16 10/08/16 10/08/16 12:49 17:07 19:30 WBC RBC Hgb 7.1 L D Hct 22.4 L D MCV MCH MCHC RDW Plt Count Lymph % (Auto) [place] % (Auto) Lymph # [place] # Baso # Seg Neutrophils % Seg Neuts % (Manual) Lymphocytes % (Manual) Monocytes % (Manual) Eosinophils % (Manual) Basophils % (Manual) Nucleated RBC % Seg Neutrophils # Seg Neutrophils # Man Lymphocytes # (Manual) Monocytes # (Manual) Eosinophils # (Manual) PT INR Fibrinogen dRVVT Confirm Interp Factor V Activity POC ABG pH POC ABG pCO2 28.2 L POC ABG pO2 111 H Sodium Potassium Chloride Carbon Dioxide BUN Creatinine Glucose POC Glucose 145 H Lactic Acid Calcium Phosphorus Magnesium Direct Bilirubin AST ALT Alkaline Phosphatase Troponin T C-Reactive Protein Total Protein Albumin Prealbumin Triglycerides Cholesterol LDL Cholesterol Direct HDL Cholesterol Urine pH Urine WBC (Auto) Urine Creatinine Urine Total Protein Vancomycin Trough Rheumatoid Factor Complement C4 Miscellaneous Test Crossmatch 10/08/16 10/09/16 10/09/16 19:30 03:45 03:45 WBC 12.6 H RBC 2.36 L Hgb 6.7 L Hct 21.1 L MCV MCH MCHC RDW 19.5 H Plt Count 75 L Lymph % (Auto) [place] % (Auto) Lymph # [place] # Baso # Seg Neutrophils % Seg Neuts % (Manual) Lymphocytes % (Manual) Monocytes % (Manual) 10.0 H Eosinophils % (Manual) Basophils % (Manual) Nucleated RBC % 3.0 H Seg Neutrophils # Seg Neutrophils # Man Lymphocytes # (Manual) Monocytes # (Manual) 1.3 H Eosinophils # (Manual) PT 18.0 H INR 1.41 H Fibrinogen dRVVT Confirm Interp Factor V Activity POC ABG pH POC ABG pCO2 POC ABG pO2 Sodium 135 L Potassium Chloride Carbon Dioxide 17 L BUN 81 H Creatinine 3.2 H Glucose 109 H POC Glucose Lactic Acid Calcium 7.4 L Phosphorus 4.60 H D Magnesium Direct Bilirubin AST ALT Alkaline Phosphatase Troponin T C-Reactive Protein Total Protein Albumin Prealbumin Triglycerides Cholesterol LDL Cholesterol Direct HDL Cholesterol Urine pH Urine WBC (Auto) Urine Creatinine Urine Total Protein Vancomycin Trough Rheumatoid Factor Complement C4 Miscellaneous Test Crossmatch 10/09/16 10/09/16 10/09/16 03:45 05:14 07:20 WBC RBC Hgb Hct MCV MCH MCHC RDW Plt Count Lymph % (Auto) [place] % (Auto) Lymph # [place] # Baso # Seg Neutrophils % Seg Neuts % (Manual) Lymphocytes % (Manual) Monocytes % (Manual) Eosinophils % (Manual) Basophils % (Manual) Nucleated RBC % Seg Neutrophils # Seg Neutrophils # Man Lymphocytes # (Manual) Monocytes # (Manual) Eosinophils # (Manual) PT 19.0 H INR 1.51 H Fibrinogen dRVVT Confirm Interp Factor V Activity POC ABG pH POC ABG pCO2 POC ABG pO2 Sodium Potassium Chloride Carbon Dioxide BUN Creatinine Glucose POC Glucose 151 H Lactic Acid Calcium Phosphorus Magnesium Direct Bilirubin AST ALT Alkaline Phosphatase Troponin T C-Reactive Protein Total Protein Albumin Prealbumin Triglycerides Cholesterol LDL Cholesterol Direct HDL Cholesterol Urine pH Urine WBC (Auto) Urine Creatinine Urine Total Protein Vancomycin Trough Rheumatoid Factor Complement C4 Miscellaneous Test Crossmatch See Detail 10/09/16 10/09/16 10/09/16 11:46 16:20 16:43 WBC RBC Hgb 7.2 L Hct 22.2 L MCV MCH MCHC RDW Plt Count Lymph % (Auto) [place] % (Auto) Lymph # [place] # Baso # Seg Neutrophils % Seg Neuts % (Manual) Lymphocytes % (Manual) Monocytes % (Manual) Eosinophils % (Manual) Basophils % (Manual) Nucleated RBC % Seg Neutrophils # Seg Neutrophils # Man Lymphocytes # (Manual) Monocytes # (Manual) Eosinophils # (Manual) PT INR Fibrinogen dRVVT Confirm Interp Factor V Activity POC ABG pH POC ABG pCO2 POC ABG pO2 Sodium Potassium Chloride Carbon Dioxide BUN Creatinine Glucose POC Glucose 133 H 141 H Lactic Acid Calcium Phosphorus Magnesium Direct Bilirubin AST ALT Alkaline Phosphatase Troponin T C-Reactive Protein Total Protein Albumin Prealbumin Triglycerides Cholesterol LDL Cholesterol Direct HDL Cholesterol Urine pH Urine WBC (Auto) Urine Creatinine Urine Total Protein Vancomycin Trough Rheumatoid Factor Complement C4 Miscellaneous Test Crossmatch 10/10/16 10/10/16 10/10/16 05:00 05:00 11:19 WBC 18.5 H RBC 2.19 L Hgb 6.4 L Hct 19.6 L* MCV MCH MCHC RDW 19.3 H Plt Count 93 L Lymph % (Auto) [place] % (Auto) Lymph # [place] # Baso # Seg Neutrophils % Seg Neuts % (Manual) Lymphocytes % (Manual) 10.0 L Monocytes % (Manual) Eosinophils % (Manual) Basophils % (Manual) Nucleated RBC % 4.0 H Seg Neutrophils # Seg Neutrophils # Man 11.3 H Lymphocytes # (Manual) Monocytes # (Manual) Eosinophils # (Manual) PT INR Fibrinogen dRVVT Confirm Interp Factor V Activity POC ABG pH POC ABG pCO2 POC ABG pO2 Sodium Potassium 5.7 H D Chloride Carbon Dioxide 16 L BUN 94 H Creatinine 3.1 H Glucose 131 H POC Glucose 153 H Lactic Acid Calcium 8.2 L Phosphorus 5.10 H Magnesium 2.40 H Direct Bilirubin 0.3 H AST ALT < 5 L Alkaline Phosphatase 319 H Troponin T C-Reactive Protein Total Protein 5.1 L Albumin 1.0 L Prealbumin Triglycerides Cholesterol LDL Cholesterol Direct HDL Cholesterol Urine pH Urine WBC (Auto) Urine Creatinine Urine Total Protein Vancomycin Trough Rheumatoid Factor Complement C4 Miscellaneous Test Crossmatch 10/10/16 10/10/16 10/11/16 17:50 23:30 04:15 WBC RBC Hgb Hct MCV MCH MCHC RDW Plt Count Lymph % (Auto) [place] % (Auto) Lymph # [place] # Baso # Seg Neutrophils % Seg Neuts % (Manual) Lymphocytes % (Manual) Monocytes % (Manual) Eosinophils % (Manual) Basophils % (Manual) Nucleated RBC % Seg Neutrophils # Seg Neutrophils # Man Lymphocytes # (Manual) Monocytes # (Manual) Eosinophils # (Manual) PT INR Fibrinogen dRVVT Confirm Interp Factor V Activity POC ABG pH POC ABG pCO2 POC ABG pO2 Sodium Potassium Chloride 96.4 L Carbon Dioxide 21 L BUN 57 H Creatinine 2.1 H Glucose 151 H POC Glucose 146 H 141 H Lactic Acid Calcium 8.3 L Phosphorus Magnesium Direct Bilirubin AST ALT Alkaline Phosphatase Troponin T C-Reactive Protein Total Protein Albumin Prealbumin Triglycerides Cholesterol LDL Cholesterol Direct HDL Cholesterol Urine pH Urine WBC (Auto) Urine Creatinine Urine Total Protein Vancomycin Trough Rheumatoid Factor Complement C4 Miscellaneous Test Crossmatch 10/11/16 10/11/16 10/11/16 04:15 04:15 05:30 WBC 28.3 H RBC 3.12 L Hgb 9.3 L Hct 28.7 L D MCV MCH MCHC RDW 17.7 H Plt Count 128 L Lymph % (Auto) [place] % (Auto) Lymph # [place] # Baso # Seg Neutrophils % Seg Neuts % (Manual) Lymphocytes % (Manual) Monocytes % (Manual) Eosinophils % (Manual) Basophils % (Manual) Nucleated RBC % Seg Neutrophils # Seg Neutrophils # Man Lymphocytes # (Manual) Monocytes # (Manual) Eosinophils # (Manual) PT INR Fibrinogen dRVVT Confirm Interp Factor V Activity POC ABG pH POC ABG pCO2 POC ABG pO2 Sodium Potassium Chloride Carbon Dioxide BUN Creatinine Glucose POC Glucose 167 H Lactic Acid Calcium Phosphorus Magnesium Direct Bilirubin AST ALT Alkaline Phosphatase Troponin T C-Reactive Protein 15.80 H Total Protein Albumin Prealbumin Triglycerides Cholesterol LDL Cholesterol Direct HDL Cholesterol Urine pH Urine WBC (Auto) Urine Creatinine Urine Total Protein Vancomycin Trough Rheumatoid Factor Complement C4 Miscellaneous Test Crossmatch 10/11/16 10/11/16 10/11/16 11:40 15:49 23:57 WBC RBC Hgb Hct MCV MCH MCHC RDW Plt Count Lymph % (Auto) [place] % (Auto) Lymph # [place] # Baso # Seg Neutrophils % Seg Neuts % (Manual) Lymphocytes % (Manual) Monocytes % (Manual) Eosinophils % (Manual) Basophils % (Manual) Nucleated RBC % Seg Neutrophils # Seg Neutrophils # Man Lymphocytes # (Manual) Monocytes # (Manual) Eosinophils # (Manual) PT INR Fibrinogen dRVVT Confirm Interp Factor V Activity POC ABG pH POC ABG pCO2 POC ABG pO2 Sodium Potassium Chloride Carbon Dioxide BUN Creatinine Glucose POC Glucose 139 H 168 H 161 H Lactic Acid Calcium Phosphorus Magnesium Direct Bilirubin AST ALT Alkaline Phosphatase Troponin T C-Reactive Protein Total Protein Albumin Prealbumin Triglycerides Cholesterol LDL Cholesterol Direct HDL Cholesterol Urine pH Urine WBC (Auto) Urine Creatinine Urine Total Protein Vancomycin Trough Rheumatoid Factor Complement C4 Miscellaneous Test Crossmatch 10/12/16 10/12/16 10/12/16 04:40 04:40 05:44 WBC 22.5 H RBC 2.88 L Hgb 8.8 L Hct 26.8 L MCV MCH MCHC RDW 17.8 H Plt Count Lymph % (Auto) [place] % (Auto) Lymph # [place] # Baso # Seg Neutrophils % Seg Neuts % (Manual) Lymphocytes % (Manual) Monocytes % (Manual) Eosinophils % (Manual) Basophils % (Manual) Nucleated RBC % Seg Neutrophils # Seg Neutrophils # Man Lymphocytes # (Manual) Monocytes # (Manual) Eosinophils # (Manual) PT INR Fibrinogen dRVVT Confirm Interp Factor V Activity POC ABG pH POC ABG pCO2 POC ABG pO2 Sodium 134 L Potassium Chloride 93.0 L Carbon Dioxide BUN 74 H Creatinine 2.5 H Glucose 137 H POC Glucose 158 H Lactic Acid Calcium 8.2 L Phosphorus Magnesium Direct Bilirubin AST ALT Alkaline Phosphatase Troponin T C-Reactive Protein Total Protein Albumin Prealbumin Triglycerides Cholesterol LDL Cholesterol Direct HDL Cholesterol Urine pH Urine WBC (Auto) Urine Creatinine Urine Total Protein Vancomycin Trough Rheumatoid Factor Complement C4 Miscellaneous Test Crossmatch 10/12/16 10/12/16 10/12/16 12:27 18:18 23:46 WBC RBC Hgb Hct MCV MCH MCHC RDW Plt Count Lymph % (Auto) [place] % (Auto) Lymph # [place] # Baso # Seg Neutrophils % Seg Neuts % (Manual) Lymphocytes % (Manual) Monocytes % (Manual) Eosinophils % (Manual) Basophils % (Manual) Nucleated RBC % Seg Neutrophils # Seg Neutrophils # Man Lymphocytes # (Manual) Monocytes # (Manual) Eosinophils # (Manual) PT INR Fibrinogen dRVVT Confirm Interp Factor V Activity POC ABG pH POC ABG pCO2 POC ABG pO2 Sodium Potassium Chloride Carbon Dioxide BUN Creatinine Glucose POC Glucose 153 H 140 H 150 H Lactic Acid Calcium Phosphorus Magnesium Direct Bilirubin AST ALT Alkaline Phosphatase Troponin T C-Reactive Protein Total Protein Albumin Prealbumin Triglycerides Cholesterol LDL Cholesterol Direct HDL Cholesterol Urine pH Urine WBC (Auto) Urine Creatinine Urine Total Protein Vancomycin Trough Rheumatoid Factor Complement C4 Miscellaneous Test Crossmatch 10/13/16 10/13/16 10/13/16 06:22 09:20 12:29 WBC RBC Hgb Hct MCV MCH MCHC RDW Plt Count Lymph % (Auto) [place] % (Auto) Lymph # [place] # Baso # Seg Neutrophils % Seg Neuts % (Manual) Lymphocytes % (Manual) Monocytes % (Manual) Eosinophils % (Manual) Basophils % (Manual) Nucleated RBC % Seg Neutrophils # Seg Neutrophils # Man Lymphocytes # (Manual) Monocytes # (Manual) Eosinophils # (Manual) PT INR Fibrinogen dRVVT Confirm Interp Factor V Activity POC ABG pH POC ABG pCO2 POC ABG pO2 Sodium Potassium Chloride Carbon Dioxide BUN Creatinine Glucose POC Glucose 165 H 193 H Lactic Acid Calcium Phosphorus Magnesium Direct Bilirubin AST ALT Alkaline Phosphatase Troponin T C-Reactive Protein Total Protein Albumin Prealbumin Triglycerides Cholesterol LDL Cholesterol Direct HDL Cholesterol Urine pH Urine WBC (Auto) Urine Creatinine Urine Total Protein Vancomycin Trough Rheumatoid Factor Complement C4 Miscellaneous Test Flexitest 1 H Crossmatch 10/13/16 10/13/16 10/13/16 18:09 Unknown Unknown WBC 23.4 H RBC 2.83 L Hgb 8.7 L Hct 26.1 L MCV MCH MCHC RDW 18.1 H Plt Count Lymph % (Auto) [place] % (Auto) Lymph # [place] # Baso # Seg Neutrophils % Seg Neuts % (Manual) Lymphocytes % (Manual) Monocytes % (Manual) Eosinophils % (Manual) Basophils % (Manual) Nucleated RBC % Seg Neutrophils # Seg Neutrophils # Man Lymphocytes # (Manual) Monocytes # (Manual) Eosinophils # (Manual) PT INR Fibrinogen dRVVT Confirm Interp Factor V Activity POC ABG pH POC ABG pCO2 POC ABG pO2 Sodium Potassium Chloride 95.8 L Carbon Dioxide BUN 82 H Creatinine 2.6 H Glucose 152 H POC Glucose 166 H Lactic Acid Calcium Phosphorus Magnesium Direct Bilirubin AST ALT Alkaline Phosphatase Troponin T C-Reactive Protein Total Protein Albumin Prealbumin Triglycerides Cholesterol LDL Cholesterol Direct HDL Cholesterol Urine pH Urine WBC (Auto) Urine Creatinine Urine Total Protein Vancomycin Trough Rheumatoid Factor Complement C4 Miscellaneous Test Crossmatch 10/14/16 10/14/16 10/14/16 05:38 06:35 08:10 WBC 20.7 H RBC 2.81 L Hgb 8.4 L Hct 27.2 L MCV MCH MCHC RDW 19.4 H Plt Count Lymph % (Auto) [place] % (Auto) Lymph # [place] # Baso # Seg Neutrophils % Seg Neuts % (Manual) Lymphocytes % (Manual) Monocytes % (Manual) Eosinophils % (Manual) Basophils % (Manual) Nucleated RBC % Seg Neutrophils # Seg Neutrophils # Man Lymphocytes # (Manual) Monocytes # (Manual) Eosinophils # (Manual) PT INR Fibrinogen dRVVT Confirm Interp Factor V Activity POC ABG pH POC ABG pCO2 POC ABG pO2 Sodium Potassium Chloride Carbon Dioxide BUN 58 H Creatinine 1.9 H Glucose 169 H POC Glucose 195 H Lactic Acid Calcium Phosphorus Magnesium Direct Bilirubin AST ALT Alkaline Phosphatase Troponin T C-Reactive Protein Total Protein Albumin Prealbumin Triglycerides Cholesterol LDL Cholesterol Direct HDL Cholesterol Urine pH Urine WBC (Auto) Urine Creatinine Urine Total Protein Vancomycin Trough Rheumatoid Factor Complement C4 Miscellaneous Test Crossmatch 10/14/16 10/14/16 10/14/16 11:44 17:13 23:28 WBC RBC Hgb Hct MCV MCH MCHC RDW Plt Count Lymph % (Auto) [place] % (Auto) Lymph # [place] # Baso # Seg Neutrophils % Seg Neuts % (Manual) Lymphocytes % (Manual) Monocytes % (Manual) Eosinophils % (Manual) Basophils % (Manual) Nucleated RBC % Seg Neutrophils # Seg Neutrophils # Man Lymphocytes # (Manual) Monocytes # (Manual) Eosinophils # (Manual) PT INR Fibrinogen dRVVT Confirm Interp Factor V Activity POC ABG pH POC ABG pCO2 POC ABG pO2 Sodium Potassium Chloride Carbon Dioxide BUN Creatinine Glucose POC Glucose 174 H 121 H 151 H Lactic Acid Calcium Phosphorus Magnesium Direct Bilirubin AST ALT Alkaline Phosphatase Troponin T C-Reactive Protein Total Protein Albumin Prealbumin Triglycerides Cholesterol LDL Cholesterol Direct HDL Cholesterol Urine pH Urine WBC (Auto) Urine Creatinine Urine Total Protein Vancomycin Trough Rheumatoid Factor Complement C4 Miscellaneous Test Crossmatch 10/15/16 10/15/16 10/15/16 05:06 12:26 17:48 WBC RBC Hgb Hct MCV MCH MCHC RDW Plt Count Lymph % (Auto) [place] % (Auto) Lymph # [place] # Baso # Seg Neutrophils % Seg Neuts % (Manual) Lymphocytes % (Manual) Monocytes % (Manual) Eosinophils % (Manual) Basophils % (Manual) Nucleated RBC % Seg Neutrophils # Seg Neutrophils # Man Lymphocytes # (Manual) Monocytes # (Manual) Eosinophils # (Manual) PT INR Fibrinogen dRVVT Confirm Interp Factor V Activity POC ABG pH POC ABG pCO2 POC ABG pO2 Sodium Potassium Chloride Carbon Dioxide BUN Creatinine Glucose POC Glucose 151 H 149 H 153 H Lactic Acid Calcium Phosphorus Magnesium Direct Bilirubin AST ALT Alkaline Phosphatase Troponin T C-Reactive Protein Total Protein Albumin Prealbumin Triglycerides Cholesterol LDL Cholesterol Direct HDL Cholesterol Urine pH Urine WBC (Auto) Urine Creatinine Urine Total Protein Vancomycin Trough Rheumatoid Factor Complement C4 Miscellaneous Test Crossmatch 10/15/16 10/15/16 10/16/16 Unknown Unknown 00:02 WBC 23.4 H RBC 2.78 L Hgb 8.5 L Hct 25.7 L MCV MCH MCHC RDW 18.7 H Plt Count Lymph % (Auto) [place] % (Auto) Lymph # [place] # Baso # Seg Neutrophils % Seg Neuts % (Manual) Lymphocytes % (Manual) Monocytes % (Manual) Eosinophils % (Manual) Basophils % (Manual) Nucleated RBC % Seg Neutrophils # Seg Neutrophils # Man Lymphocytes # (Manual) Monocytes # (Manual) Eosinophils # (Manual) PT INR Fibrinogen dRVVT Confirm Interp Factor V Activity POC ABG pH POC ABG pCO2 POC ABG pO2 Sodium Potassium Chloride Carbon Dioxide BUN 73 H Creatinine 2.3 H Glucose 120 H POC Glucose 137 H Lactic Acid Calcium Phosphorus Magnesium Direct Bilirubin AST ALT Alkaline Phosphatase Troponin T C-Reactive Protein Total Protein Albumin Prealbumin Triglycerides Cholesterol LDL Cholesterol Direct HDL Cholesterol Urine pH Urine WBC (Auto) Urine Creatinine Urine Total Protein Vancomycin Trough Rheumatoid Factor Complement C4 Miscellaneous Test Crossmatch 10/16/16 10/16/16 10/16/16 05:44 06:25 06:25 WBC 22.5 H RBC 2.76 L Hgb 8.3 L Hct 25.2 L MCV MCH MCHC RDW 18.3 H Plt Count Lymph % (Auto) [place] % (Auto) Lymph # [place] # Baso # Seg Neutrophils % Seg Neuts % (Manual) Lymphocytes % (Manual) Monocytes % (Manual) Eosinophils % (Manual) Basophils % (Manual) Nucleated RBC % Seg Neutrophils # Seg Neutrophils # Man Lymphocytes # (Manual) Monocytes # (Manual) Eosinophils # (Manual) PT INR Fibrinogen dRVVT Confirm Interp Factor V Activity POC ABG pH POC ABG pCO2 POC ABG pO2 Sodium Potassium Chloride Carbon Dioxide BUN 92 H Creatinine 3.0 H Glucose 138 H POC Glucose 110 H Lactic Acid Calcium Phosphorus Magnesium Direct Bilirubin AST ALT Alkaline Phosphatase Troponin T C-Reactive Protein Total Protein Albumin Prealbumin Triglycerides Cholesterol LDL Cholesterol Direct HDL Cholesterol Urine pH Urine WBC (Auto) Urine Creatinine Urine Total Protein Vancomycin Trough Rheumatoid Factor Complement C4 Miscellaneous Test Crossmatch 10/16/16 10/16/16 10/16/16 11:27 11:48 17:36 WBC RBC Hgb Hct MCV MCH MCHC RDW Plt Count Lymph % (Auto) [place] % (Auto) Lymph # [place] # Baso # Seg Neutrophils % Seg Neuts % (Manual) Lymphocytes % (Manual) Monocytes % (Manual) Eosinophils % (Manual) Basophils % (Manual) Nucleated RBC % Seg Neutrophils # Seg Neutrophils # Man Lymphocytes # (Manual) Monocytes # (Manual) Eosinophils # (Manual) PT INR Fibrinogen dRVVT Confirm Interp Factor V Activity POC ABG pH 7.582 H POC ABG pCO2 27.4 L POC ABG pO2 110 H Sodium Potassium Chloride Carbon Dioxide BUN Creatinine Glucose POC Glucose 121 H 133 H Lactic Acid Calcium Phosphorus Magnesium Direct Bilirubin AST ALT Alkaline Phosphatase Troponin T C-Reactive Protein Total Protein Albumin Prealbumin Triglycerides Cholesterol LDL Cholesterol Direct HDL Cholesterol Urine pH Urine WBC (Auto) Urine Creatinine Urine Total Protein Vancomycin Trough Rheumatoid Factor Complement C4 Miscellaneous Test Crossmatch 10/16/16 10/17/16 10/17/16 20:48 04:24 04:24 WBC 21.4 H RBC 2.72 L Hgb 8.0 L Hct 25.2 L MCV MCH MCHC RDW 18.0 H Plt Count Lymph % (Auto) [place] % (Auto) Lymph # [place] # Baso # Seg Neutrophils % Seg Neuts % (Manual) Lymphocytes % (Manual) Monocytes % (Manual) Eosinophils % (Manual) Basophils % (Manual) Nucleated RBC % Seg Neutrophils # Seg Neutrophils # Man Lymphocytes # (Manual) Monocytes # (Manual) Eosinophils # (Manual) PT INR Fibrinogen dRVVT Confirm Interp Factor V Activity POC ABG pH 7.561 H POC ABG pCO2 24.4 L POC ABG pO2 77 L Sodium 148 H Potassium Chloride Carbon Dioxide BUN 104 H Creatinine 3.0 H Glucose 149 H POC Glucose Lactic Acid Calcium Phosphorus Magnesium Direct Bilirubin AST ALT Alkaline Phosphatase 138 H Troponin T C-Reactive Protein Total Protein 6.2 L Albumin 1.5 L Prealbumin Triglycerides Cholesterol LDL Cholesterol Direct HDL Cholesterol Urine pH Urine WBC (Auto) Urine Creatinine Urine Total Protein Vancomycin Trough Rheumatoid Factor Complement C4 Miscellaneous Test Crossmatch 10/17/16 10/17/16 10/17/16 06:02 12:17 17:14 WBC RBC Hgb Hct MCV MCH MCHC RDW Plt Count Lymph % (Auto) [place] % (Auto) Lymph # [place] # Baso # Seg Neutrophils % Seg Neuts % (Manual) Lymphocytes % (Manual) Monocytes % (Manual) Eosinophils % (Manual) Basophils % (Manual) Nucleated RBC % Seg Neutrophils # Seg Neutrophils # Man Lymphocytes # (Manual) Monocytes # (Manual) Eosinophils # (Manual) PT INR Fibrinogen dRVVT Confirm Interp Factor V Activity POC ABG pH POC ABG pCO2 POC ABG pO2 Sodium Potassium Chloride Carbon Dioxide BUN Creatinine Glucose POC Glucose 170 H 167 H 126 H Lactic Acid Calcium Phosphorus Magnesium Direct Bilirubin AST ALT Alkaline Phosphatase Troponin T C-Reactive Protein Total Protein Albumin Prealbumin Triglycerides Cholesterol LDL Cholesterol Direct HDL Cholesterol Urine pH Urine WBC (Auto) Urine Creatinine Urine Total Protein Vancomycin Trough Rheumatoid Factor Complement C4 Miscellaneous Test Crossmatch 10/17/16 10/18/16 10/18/16 23:17 04:00 04:00 WBC 20.7 H RBC 2.47 L Hgb 7.4 L Hct 22.9 L MCV MCH MCHC RDW 17.5 H Plt Count Lymph % (Auto) [place] % (Auto) Lymph # [place] # Baso # Seg Neutrophils % Seg Neuts % (Manual) Lymphocytes % (Manual) Monocytes % (Manual) Eosinophils % (Manual) Basophils % (Manual) Nucleated RBC % Seg Neutrophils # Seg Neutrophils # Man Lymphocytes # (Manual) Monocytes # (Manual) Eosinophils # (Manual) PT INR Fibrinogen dRVVT Confirm Interp Factor V Activity POC ABG pH POC ABG pCO2 POC ABG pO2 Sodium 149 H Potassium Chloride 107.9 H Carbon Dioxide 20 L BUN 117 H Creatinine 3.2 H Glucose 119 H POC Glucose 121 H Lactic Acid Calcium Phosphorus Magnesium Direct Bilirubin AST ALT Alkaline Phosphatase Troponin T C-Reactive Protein Total Protein Albumin Prealbumin Triglycerides Cholesterol LDL Cholesterol Direct HDL Cholesterol Urine pH Urine WBC (Auto) Urine Creatinine Urine Total Protein Vancomycin Trough Rheumatoid Factor Complement C4 Miscellaneous Test Crossmatch 10/18/16 10/18/16 10/18/16 05:23 10:46 17:30 WBC RBC Hgb Hct MCV MCH MCHC RDW Plt Count Lymph % (Auto) [place] % (Auto) Lymph # [place] # Baso # Seg Neutrophils % Seg Neuts % (Manual) Lymphocytes % (Manual) Monocytes % (Manual) Eosinophils % (Manual) Basophils % (Manual) Nucleated RBC % Seg Neutrophils # Seg Neutrophils # Man Lymphocytes # (Manual) Monocytes # (Manual) Eosinophils # (Manual) PT INR Fibrinogen dRVVT Confirm Interp Factor V Activity POC ABG pH POC ABG pCO2 POC ABG pO2 Sodium Potassium Chloride Carbon Dioxide BUN Creatinine Glucose POC Glucose 119 H 155 H 124 H Lactic Acid Calcium Phosphorus Magnesium Direct Bilirubin AST ALT Alkaline Phosphatase Troponin T C-Reactive Protein Total Protein Albumin Prealbumin Triglycerides Cholesterol LDL Cholesterol Direct HDL Cholesterol Urine pH Urine WBC (Auto) Urine Creatinine Urine Total Protein Vancomycin Trough Rheumatoid Factor Complement C4 Miscellaneous Test Crossmatch 10/19/16 10/19/16 10/19/16 04:00 04:00 05:25 WBC 17.4 H RBC 2.54 L Hgb 7.7 L Hct 23.6 L MCV MCH MCHC RDW 17.3 H Plt Count Lymph % (Auto) [place] % (Auto) Lymph # [place] # Baso # Seg Neutrophils % Seg Neuts % (Manual) Lymphocytes % (Manual) Monocytes % (Manual) Eosinophils % (Manual) Basophils % (Manual) Nucleated RBC % Seg Neutrophils # Seg Neutrophils # Man Lymphocytes # (Manual) Monocytes # (Manual) Eosinophils # (Manual) PT INR Fibrinogen dRVVT Confirm Interp Factor V Activity POC ABG pH POC ABG pCO2 POC ABG pO2 Sodium Potassium Chloride Carbon Dioxide BUN 72 H Creatinine 2.1 H Glucose 116 H POC Glucose 119 H Lactic Acid Calcium Phosphorus Magnesium Direct Bilirubin AST ALT Alkaline Phosphatase Troponin T C-Reactive Protein Total Protein Albumin Prealbumin Triglycerides Cholesterol LDL Cholesterol Direct HDL Cholesterol Urine pH Urine WBC (Auto) Urine Creatinine Urine Total Protein Vancomycin Trough Rheumatoid Factor Complement C4 Miscellaneous Test Crossmatch 10/19/16 10/19/16 10/20/16 11:46 23:59 06:00 WBC RBC Hgb Hct MCV MCH MCHC RDW Plt Count Lymph % (Auto) [place] % (Auto) Lymph # [place] # Baso # Seg Neutrophils % Seg Neuts % (Manual) Lymphocytes % (Manual) Monocytes % (Manual) Eosinophils % (Manual) Basophils % (Manual) Nucleated RBC % Seg Neutrophils # Seg Neutrophils # Man Lymphocytes # (Manual) Monocytes # (Manual) Eosinophils # (Manual) PT INR Fibrinogen dRVVT Confirm Interp Factor V Activity POC ABG pH POC ABG pCO2 POC ABG pO2 Sodium Potassium Chloride Carbon Dioxide 17 L BUN 94 H Creatinine 2.7 H Glucose POC Glucose 116 H 117 H Lactic Acid Calcium Phosphorus Magnesium Direct Bilirubin AST ALT Alkaline Phosphatase Troponin T C-Reactive Protein Total Protein Albumin Prealbumin Triglycerides Cholesterol LDL Cholesterol Direct HDL Cholesterol Urine pH Urine WBC (Auto) Urine Creatinine Urine Total Protein Vancomycin Trough Rheumatoid Factor Complement C4 Miscellaneous Test Crossmatch 10/20/16 10/20/16 10/20/16 06:00 11:49 16:00 WBC 19.7 H RBC 2.51 L Hgb 7.7 L Hct 23.5 L MCV MCH MCHC RDW 17.5 H Plt Count Lymph % (Auto) [place] % (Auto) Lymph # [place] # Baso # Seg Neutrophils % Seg Neuts % (Manual) Lymphocytes % (Manual) Monocytes % (Manual) Eosinophils % (Manual) Basophils % (Manual) Nucleated RBC % Seg Neutrophils # Seg Neutrophils # Man Lymphocytes # (Manual) Monocytes # (Manual) Eosinophils # (Manual) PT INR Fibrinogen dRVVT Confirm Interp Factor V Activity POC ABG pH POC ABG pCO2 POC ABG pO2 Sodium Potassium Chloride Carbon Dioxide BUN Creatinine Glucose POC Glucose 117 H Lactic Acid Calcium Phosphorus Magnesium Direct Bilirubin AST ALT Alkaline Phosphatase Troponin T C-Reactive Protein Total Protein Albumin Prealbumin Triglycerides Cholesterol LDL Cholesterol Direct HDL Cholesterol Urine pH Urine WBC (Auto) Urine Creatinine Urine Total Protein Vancomycin Trough Rheumatoid Factor Complement C4 Miscellaneous Test Flexitest 1 H Crossmatch 10/20/16 10/20/16 10/21/16 18:36 23:39 04:00 WBC RBC Hgb Hct MCV MCH MCHC RDW Plt Count Lymph % (Auto) [place] % (Auto) Lymph # [place] # Baso # Seg Neutrophils % Seg Neuts % (Manual) Lymphocytes % (Manual) Monocytes % (Manual) Eosinophils % (Manual) Basophils % (Manual) Nucleated RBC % Seg Neutrophils # Seg Neutrophils # Man Lymphocytes # (Manual) Monocytes # (Manual) Eosinophils # (Manual) PT INR Fibrinogen dRVVT Confirm Interp Factor V Activity POC ABG pH POC ABG pCO2 POC ABG pO2 Sodium Potassium 5.4 H D Chloride Carbon Dioxide 15 L BUN 110 H Creatinine 3.0 H Glucose POC Glucose 127 H 114 H Lactic Acid Calcium Phosphorus Magnesium Direct Bilirubin AST ALT Alkaline Phosphatase Troponin T C-Reactive Protein Total Protein Albumin Prealbumin Triglycerides Cholesterol LDL Cholesterol Direct HDL Cholesterol Urine pH Urine WBC (Auto) Urine Creatinine Urine Total Protein Vancomycin Trough Rheumatoid Factor Complement C4 Miscellaneous Test Crossmatch 10/21/16 10/21/16 10/22/16 05:54 23:46 05:18 WBC RBC Hgb Hct MCV MCH MCHC RDW Plt Count Lymph % (Auto) [place] % (Auto) Lymph # [place] # Baso # Seg Neutrophils % Seg Neuts % (Manual) Lymphocytes % (Manual) Monocytes % (Manual) Eosinophils % (Manual) Basophils % (Manual) Nucleated RBC % Seg Neutrophils # Seg Neutrophils # Man Lymphocytes # (Manual) Monocytes # (Manual) Eosinophils # (Manual) PT INR Fibrinogen dRVVT Confirm Interp Factor V Activity POC ABG pH POC ABG pCO2 POC ABG pO2 Sodium Potassium Chloride Carbon Dioxide BUN Creatinine Glucose POC Glucose 119 H 108 H 109 H Lactic Acid Calcium Phosphorus Magnesium Direct Bilirubin AST ALT Alkaline Phosphatase Troponin T C-Reactive Protein Total Protein Albumin Prealbumin Triglycerides Cholesterol LDL Cholesterol Direct HDL Cholesterol Urine pH Urine WBC (Auto) Urine Creatinine Urine Total Protein Vancomycin Trough Rheumatoid Factor Complement C4 Miscellaneous Test Crossmatch 10/22/16 10/22/16 10/22/16 06:40 06:40 06:40 WBC 14.0 H RBC 2.03 L Hgb 7.0 L Hct 20.5 L MCV 98 H MCH 34 H MCHC 35 H RDW 17.8 H Plt Count Lymph % (Auto) [place] % (Auto) 9.9 H Lymph # [place] # 1.4 H Baso # 0.2 H Seg Neutrophils % 72.0 H Seg Neuts % (Manual) Lymphocytes % (Manual) Monocytes % (Manual) Eosinophils % (Manual) Basophils % (Manual) Nucleated RBC % Seg Neutrophils # 10.0 H Seg Neutrophils # Man Lymphocytes # (Manual) Monocytes # (Manual) Eosinophils # (Manual) PT INR Fibrinogen dRVVT Confirm Interp Factor V Activity POC ABG pH POC ABG pCO2 POC ABG pO2 Sodium 130 L D Potassium Chloride 92.4 L Carbon Dioxide 20 L BUN 50 H Creatinine 1.6 H Glucose 589 H* POC Glucose Lactic Acid Calcium 7.8 L D Phosphorus Magnesium 1.60 L Direct Bilirubin AST ALT Alkaline Phosphatase Troponin T C-Reactive Protein Total Protein Albumin Prealbumin Triglycerides Cholesterol LDL Cholesterol Direct HDL Cholesterol Urine pH Urine WBC (Auto) Urine Creatinine Urine Total Protein Vancomycin Trough Rheumatoid Factor Complement C4 Miscellaneous Test Crossmatch 10/22/16 10/22/16 10/22/16 11:39 16:44 23:36 WBC RBC Hgb Hct MCV MCH MCHC RDW Plt Count Lymph % (Auto) [place] % (Auto) Lymph # [place] # Baso # Seg Neutrophils % Seg Neuts % (Manual) Lymphocytes % (Manual) Monocytes % (Manual) Eosinophils % (Manual) Basophils % (Manual) Nucleated RBC % Seg Neutrophils # Seg Neutrophils # Man Lymphocytes # (Manual) Monocytes # (Manual) Eosinophils # (Manual) PT INR Fibrinogen dRVVT Confirm Interp Factor V Activity POC ABG pH POC ABG pCO2 POC ABG pO2 Sodium Potassium Chloride Carbon Dioxide BUN Creatinine Glucose POC Glucose 142 H 163 H 123 H Lactic Acid Calcium Phosphorus Magnesium Direct Bilirubin AST ALT Alkaline Phosphatase Troponin T C-Reactive Protein Total Protein Albumin Prealbumin Triglycerides Cholesterol LDL Cholesterol Direct HDL Cholesterol Urine pH Urine WBC (Auto) Urine Creatinine Urine Total Protein Vancomycin Trough Rheumatoid Factor Complement C4 Miscellaneous Test Crossmatch 10/23/16 10/23/16 10/23/16 04:58 06:00 12:12 WBC RBC Hgb Hct MCV MCH MCHC RDW Plt Count Lymph % (Auto) [place] % (Auto) Lymph # [place] # Baso # Seg Neutrophils % Seg Neuts % (Manual) Lymphocytes % (Manual) Monocytes % (Manual) Eosinophils % (Manual) Basophils % (Manual) Nucleated RBC % Seg Neutrophils # Seg Neutrophils # Man Lymphocytes # (Manual) Monocytes # (Manual) Eosinophils # (Manual) PT INR Fibrinogen dRVVT Confirm Interp Factor V Activity POC ABG pH POC ABG pCO2 POC ABG pO2 Sodium 133 L Potassium 3.5 L Chloride 96.1 L Carbon Dioxide 18 L BUN 76 H Creatinine 2.1 H Glucose POC Glucose 133 H 138 H Lactic Acid Calcium 8.3 L Phosphorus Magnesium Direct Bilirubin AST ALT Alkaline Phosphatase Troponin T C-Reactive Protein Total Protein Albumin Prealbumin Triglycerides Cholesterol LDL Cholesterol Direct HDL Cholesterol Urine pH Urine WBC (Auto) Urine Creatinine Urine Total Protein Vancomycin Trough Rheumatoid Factor Complement C4 Miscellaneous Test Crossmatch 10/23/16 10/23/16 10/24/16 16:53 23:37 04:00 WBC RBC Hgb Hct MCV MCH MCHC RDW Plt Count Lymph % (Auto) [place] % (Auto) Lymph # [place] # Baso # Seg Neutrophils % Seg Neuts % (Manual) Lymphocytes % (Manual) Monocytes % (Manual) Eosinophils % (Manual) Basophils % (Manual) Nucleated RBC % Seg Neutrophils # Seg Neutrophils # Man Lymphocytes # (Manual) Monocytes # (Manual) Eosinophils # (Manual) PT INR Fibrinogen dRVVT Confirm Interp Factor V Activity POC ABG pH POC ABG pCO2 POC ABG pO2 Sodium 131 L Potassium Chloride 94.5 L Carbon Dioxide 19 L BUN 97 H Creatinine 2.6 H Glucose 110 H POC Glucose 125 H 123 H Lactic Acid Calcium 8.3 L Phosphorus Magnesium Direct Bilirubin AST ALT Alkaline Phosphatase Troponin T C-Reactive Protein Total Protein Albumin Prealbumin Triglycerides Cholesterol LDL Cholesterol Direct HDL Cholesterol Urine pH Urine WBC (Auto) Urine Creatinine Urine Total Protein Vancomycin Trough Rheumatoid Factor Complement C4 Miscellaneous Test Crossmatch 10/24/16 10/24/16 10/24/16 07:49 11:39 17:52 WBC RBC Hgb 6.0 L Hct 19.7 L* MCV MCH MCHC RDW Plt Count Lymph % (Auto) [place] % (Auto) Lymph # [place] # Baso # Seg Neutrophils % Seg Neuts % (Manual) Lymphocytes % (Manual) Monocytes % (Manual) Eosinophils % (Manual) Basophils % (Manual) Nucleated RBC % Seg Neutrophils # Seg Neutrophils # Man Lymphocytes # (Manual) Monocytes # (Manual) Eosinophils # (Manual) PT INR Fibrinogen dRVVT Confirm Interp Factor V Activity POC ABG pH POC ABG pCO2 POC ABG pO2 Sodium Potassium Chloride Carbon Dioxide BUN Creatinine Glucose POC Glucose 106 H 158 H Lactic Acid Calcium Phosphorus Magnesium Direct Bilirubin AST ALT Alkaline Phosphatase Troponin T C-Reactive Protein Total Protein Albumin Prealbumin Triglycerides Cholesterol LDL Cholesterol Direct HDL Cholesterol Urine pH Urine WBC (Auto) Urine Creatinine Urine Total Protein Vancomycin Trough Rheumatoid Factor Complement C4 Miscellaneous Test Crossmatch 10/24/16 10/24/16 10/24/16 20:00 22:27 Unknown WBC RBC Hgb 9.4 L D Hct 27.5 L D MCV MCH MCHC RDW Plt Count Lymph % (Auto) [place] % (Auto) Lymph # [place] # Baso # Seg Neutrophils % Seg Neuts % (Manual) Lymphocytes % (Manual) Monocytes % (Manual) Eosinophils % (Manual) Basophils % (Manual) Nucleated RBC % Seg Neutrophils # Seg Neutrophils # Man Lymphocytes # (Manual) Monocytes # (Manual) Eosinophils # (Manual) PT INR Fibrinogen dRVVT Confirm Interp Factor V Activity POC ABG pH POC ABG pCO2 POC ABG pO2 Sodium Potassium Chloride Carbon Dioxide BUN Creatinine Glucose POC Glucose 125 H Lactic Acid Calcium Phosphorus Magnesium Direct Bilirubin AST ALT Alkaline Phosphatase Troponin T C-Reactive Protein Total Protein Albumin Prealbumin Triglycerides Cholesterol LDL Cholesterol Direct HDL Cholesterol Urine pH Urine WBC (Auto) Urine Creatinine Urine Total Protein Vancomycin Trough Rheumatoid Factor Complement C4 Miscellaneous Test Crossmatch See Detail 10/25/16 10/25/16 10/25/16 04:00 04:00 04:00 WBC 14.2 H RBC 2.98 L Hgb 9.0 L Hct 26.2 L MCV MCH MCHC RDW 16.6 H Plt Count Lymph % (Auto) [place] % (Auto) 10.7 H Lymph # [place] # 1.5 H Baso # Seg Neutrophils % 73.6 H Seg Neuts % (Manual) Lymphocytes % (Manual) Monocytes % (Manual) Eosinophils % (Manual) Basophils % (Manual) Nucleated RBC % Seg Neutrophils # 10.5 H Seg Neutrophils # Man Lymphocytes # (Manual) Monocytes # (Manual) Eosinophils # (Manual) PT INR Fibrinogen dRVVT Confirm Interp Factor V Activity POC ABG pH POC ABG pCO2 POC ABG pO2 Sodium 132 L Potassium Chloride 94.7 L Carbon Dioxide BUN 51 H Creatinine 1.6 H Glucose 130 H POC Glucose Lactic Acid Calcium 8.3 L Phosphorus 1.60 L D Magnesium Direct Bilirubin AST ALT Alkaline Phosphatase Troponin T C-Reactive Protein Total Protein Albumin Prealbumin Triglycerides Cholesterol LDL Cholesterol Direct HDL Cholesterol Urine pH Urine WBC (Auto) Urine Creatinine Urine Total Protein Vancomycin Trough Rheumatoid Factor Complement C4 Miscellaneous Test Crossmatch 10/25/16 10/25/16 10/25/16 04:32 11:48 17:22 WBC RBC Hgb Hct MCV MCH MCHC RDW Plt Count Lymph % (Auto) [place] % (Auto) Lymph # [place] # Baso # Seg Neutrophils % Seg Neuts % (Manual) Lymphocytes % (Manual) Monocytes % (Manual) Eosinophils % (Manual) Basophils % (Manual) Nucleated RBC % Seg Neutrophils # Seg Neutrophils # Man Lymphocytes # (Manual) Monocytes # (Manual) Eosinophils # (Manual) PT INR Fibrinogen dRVVT Confirm Interp Factor V Activity POC ABG pH POC ABG pCO2 POC ABG pO2 Sodium Potassium Chloride Carbon Dioxide BUN Creatinine Glucose POC Glucose 124 H 171 H 120 H Lactic Acid Calcium Phosphorus Magnesium Direct Bilirubin AST ALT Alkaline Phosphatase Troponin T C-Reactive Protein Total Protein Albumin Prealbumin Triglycerides Cholesterol LDL Cholesterol Direct HDL Cholesterol Urine pH Urine WBC (Auto) Urine Creatinine Urine Total Protein Vancomycin Trough Rheumatoid Factor Complement C4 Miscellaneous Test Crossmatch 10/26/16 10/26/16 10/26/16 04:54 07:06 07:06 WBC 16.9 H RBC 3.06 L Hgb 9.1 L Hct 26.9 L MCV MCH MCHC RDW 16.9 H Plt Count Lymph % (Auto) [place] % (Auto) Lymph # [place] # Baso # Seg Neutrophils % Seg Neuts % (Manual) 71.0 H Lymphocytes % (Manual) 5.0 L Monocytes % (Manual) 12.0 H Eosinophils % (Manual) Basophils % (Manual) Nucleated RBC % Seg Neutrophils # Seg Neutrophils # Man 12.0 H Lymphocytes # (Manual) 0.8 L Monocytes # (Manual) 2.0 H Eosinophils # (Manual) PT INR Fibrinogen dRVVT Confirm Interp Factor V Activity POC ABG pH POC ABG pCO2 POC ABG pO2 Sodium 135 L Potassium Chloride 97.1 L Carbon Dioxide BUN 73 H Creatinine 2.2 H Glucose 117 H POC Glucose 123 H Lactic Acid Calcium Phosphorus 1.70 L Magnesium Direct Bilirubin AST ALT Alkaline Phosphatase Troponin T C-Reactive Protein Total Protein Albumin Prealbumin Triglycerides Cholesterol LDL Cholesterol Direct HDL Cholesterol Urine pH Urine WBC (Auto) Urine Creatinine Urine Total Protein Vancomycin Trough Rheumatoid Factor Complement C4 Miscellaneous Test Crossmatch 10/26/16 10/26/16 10/26/16 12:12 17:29 23:42 WBC RBC Hgb Hct MCV MCH MCHC RDW Plt Count Lymph % (Auto) [place] % (Auto) Lymph # [place] # Baso # Seg Neutrophils % Seg Neuts % (Manual) Lymphocytes % (Manual) Monocytes % (Manual) Eosinophils % (Manual) Basophils % (Manual) Nucleated RBC % Seg Neutrophils # Seg Neutrophils # Man Lymphocytes # (Manual) Monocytes # (Manual) Eosinophils # (Manual) PT INR Fibrinogen dRVVT Confirm Interp Factor V Activity POC ABG pH POC ABG pCO2 POC ABG pO2 Sodium Potassium Chloride Carbon Dioxide BUN Creatinine Glucose POC Glucose 126 H 161 H 118 H Lactic Acid Calcium Phosphorus Magnesium Direct Bilirubin AST ALT Alkaline Phosphatase Troponin T C-Reactive Protein Total Protein Albumin Prealbumin Triglycerides Cholesterol LDL Cholesterol Direct HDL Cholesterol Urine pH Urine WBC (Auto) Urine Creatinine Urine Total Protein Vancomycin Trough Rheumatoid Factor Complement C4 Miscellaneous Test Crossmatch 10/27/16 10/27/16 10/27/16 05:03 06:30 06:30 WBC 13.9 H RBC 3.09 L Hgb 9.2 L Hct 27.5 L MCV MCH MCHC RDW 17.0 H Plt Count Lymph % (Auto) [place] % (Auto) Lymph # [place] # Baso # Seg Neutrophils % Seg Neuts % (Manual) 78.0 H Lymphocytes % (Manual) Monocytes % (Manual) Eosinophils % (Manual) Basophils % (Manual) Nucleated RBC % 2.0 H Seg Neutrophils # Seg Neutrophils # Man 10.8 H Lymphocytes # (Manual) Monocytes # (Manual) 1.0 H Eosinophils # (Manual) PT INR Fibrinogen dRVVT Confirm Interp Factor V Activity POC ABG pH POC ABG pCO2 POC ABG pO2 Sodium Potassium Chloride Carbon Dioxide BUN 40 H Creatinine 1.5 H Glucose 135 H POC Glucose 107 H Lactic Acid Calcium 8.3 L Phosphorus 1.30 L D Magnesium Direct Bilirubin AST ALT Alkaline Phosphatase Troponin T C-Reactive Protein Total Protein Albumin Prealbumin Triglycerides Cholesterol LDL Cholesterol Direct HDL Cholesterol Urine pH Urine WBC (Auto) Urine Creatinine Urine Total Protein Vancomycin Trough Rheumatoid Factor Complement C4 Miscellaneous Test Crossmatch 10/27/16 10/27/16 10/27/16 13:27 18:07 23:40 WBC RBC Hgb Hct MCV MCH MCHC RDW Plt Count Lymph % (Auto) [place] % (Auto) Lymph # [place] # Baso # Seg Neutrophils % Seg Neuts % (Manual) Lymphocytes % (Manual) Monocytes % (Manual) Eosinophils % (Manual) Basophils % (Manual) Nucleated RBC % Seg Neutrophils # Seg Neutrophils # Man Lymphocytes # (Manual) Monocytes # (Manual) Eosinophils # (Manual) PT INR Fibrinogen dRVVT Confirm Interp Factor V Activity POC ABG pH POC ABG pCO2 POC ABG pO2 Sodium Potassium Chloride Carbon Dioxide BUN Creatinine Glucose POC Glucose 117 H 121 H 118 H Lactic Acid Calcium Phosphorus Magnesium Direct Bilirubin AST ALT Alkaline Phosphatase Troponin T C-Reactive Protein Total Protein Albumin Prealbumin Triglycerides Cholesterol LDL Cholesterol Direct HDL Cholesterol Urine pH Urine WBC (Auto) Urine Creatinine Urine Total Protein Vancomycin Trough Rheumatoid Factor Complement C4 Miscellaneous Test Crossmatch 10/28/16 10/28/16 10/28/16 05:48 06:45 06:45 WBC 14.7 H RBC 3.05 L Hgb 9.0 L Hct 26.9 L MCV MCH MCHC RDW 16.8 H Plt Count Lymph % (Auto) 8.2 L [place] % (Auto) 8.4 H Lymph # [place] # 1.2 H Baso # Seg Neutrophils % 81.9 H Seg Neuts % (Manual) Lymphocytes % (Manual) Monocytes % (Manual) Eosinophils % (Manual) Basophils % (Manual) Nucleated RBC % Seg Neutrophils # 12.1 H Seg Neutrophils # Man Lymphocytes # (Manual) Monocytes # (Manual) Eosinophils # (Manual) PT INR Fibrinogen dRVVT Confirm Interp Factor V Activity POC ABG pH POC ABG pCO2 POC ABG pO2 Sodium Potassium Chloride Carbon Dioxide BUN 60 H Creatinine 1.9 H Glucose 120 H POC Glucose 114 H Lactic Acid Calcium Phosphorus Magnesium Direct Bilirubin AST ALT Alkaline Phosphatase Troponin T C-Reactive Protein Total Protein Albumin Prealbumin Triglycerides Cholesterol LDL Cholesterol Direct HDL Cholesterol Urine pH Urine WBC (Auto) Urine Creatinine Urine Total Protein Vancomycin Trough Rheumatoid Factor Complement C4 Miscellaneous Test Crossmatch 10/28/16 10/28/16 10/29/16 17:08 23:50 05:10 WBC RBC Hgb Hct MCV MCH MCHC RDW Plt Count Lymph % (Auto) [place] % (Auto) Lymph # [place] # Baso # Seg Neutrophils % Seg Neuts % (Manual) Lymphocytes % (Manual) Monocytes % (Manual) Eosinophils % (Manual) Basophils % (Manual) Nucleated RBC % Seg Neutrophils # Seg Neutrophils # Man Lymphocytes # (Manual) Monocytes # (Manual) Eosinophils # (Manual) PT INR Fibrinogen dRVVT Confirm Interp Factor V Activity POC ABG pH POC ABG pCO2 POC ABG pO2 Sodium Potassium Chloride Carbon Dioxide BUN Creatinine Glucose POC Glucose 109 H 110 H 124 H Lactic Acid Calcium Phosphorus Magnesium Direct Bilirubin AST ALT Alkaline Phosphatase Troponin T C-Reactive Protein Total Protein Albumin Prealbumin Triglycerides Cholesterol LDL Cholesterol Direct HDL Cholesterol Urine pH Urine WBC (Auto) Urine Creatinine Urine Total Protein Vancomycin Trough Rheumatoid Factor Complement C4 Miscellaneous Test Crossmatch 10/29/16 10/29/16 10/29/16 07:45 07:45 12:19 WBC 14.7 H RBC 3.15 L Hgb 9.3 L Hct 28.9 L MCV MCH MCHC RDW 17.0 H Plt Count Lymph % (Auto) 11.9 L [place] % (Auto) 8.6 H Lymph # [place] # 1.3 H Baso # Seg Neutrophils % 78.1 H Seg Neuts % (Manual) Lymphocytes % (Manual) Monocytes % (Manual) Eosinophils % (Manual) Basophils % (Manual) Nucleated RBC % Seg Neutrophils # 11.4 H Seg Neutrophils # Man Lymphocytes # (Manual) Monocytes # (Manual) Eosinophils # (Manual) PT INR Fibrinogen dRVVT Confirm Interp Factor V Activity POC ABG pH POC ABG pCO2 POC ABG pO2 Sodium Potassium 5.1 H Chloride Carbon Dioxide 19 L BUN 78 H Creatinine 2.2 H Glucose 116 H POC Glucose 118 H Lactic Acid Calcium Phosphorus Magnesium Direct Bilirubin AST ALT Alkaline Phosphatase Troponin T C-Reactive Protein Total Protein Albumin Prealbumin Triglycerides Cholesterol LDL Cholesterol Direct HDL Cholesterol Urine pH Urine WBC (Auto) Urine Creatinine Urine Total Protein Vancomycin Trough Rheumatoid Factor Complement C4 Miscellaneous Test Crossmatch 10/29/16 10/30/16 10/30/16 17:49 01:52 03:28 WBC RBC Hgb Hct MCV MCH MCHC RDW Plt Count Lymph % (Auto) [place] % (Auto) Lymph # [place] # Baso # Seg Neutrophils % Seg Neuts % (Manual) Lymphocytes % (Manual) Monocytes % (Manual) Eosinophils % (Manual) Basophils % (Manual) Nucleated RBC % Seg Neutrophils # Seg Neutrophils # Man Lymphocytes # (Manual) Monocytes # (Manual) Eosinophils # (Manual) PT INR Fibrinogen dRVVT Confirm Interp Factor V Activity POC ABG pH POC ABG pCO2 POC ABG pO2 Sodium Potassium 5.4 H Chloride 97.5 L Carbon Dioxide 19 L BUN 90 H Creatinine 2.5 H Glucose POC Glucose 120 H 129 H Lactic Acid Calcium Phosphorus 5.20 H Magnesium Direct Bilirubin AST ALT Alkaline Phosphatase Troponin T C-Reactive Protein Total Protein Albumin Prealbumin Triglycerides Cholesterol LDL Cholesterol Direct HDL Cholesterol Urine pH Urine WBC (Auto) Urine Creatinine Urine Total Protein Vancomycin Trough Rheumatoid Factor Complement C4 Miscellaneous Test Crossmatch 10/30/16 10/30/16 10/30/16 03:28 08:19 08:19 WBC 11.6 H 15.9 H RBC 2.75 L 2.82 L Hgb 7.9 L 8.3 L Hct 24.2 L 25.2 L MCV MCH MCHC RDW 16.7 H 17.2 H Plt Count Lymph % (Auto) [place] % (Auto) 9.8 H Lymph # [place] # 1.1 H Baso # Seg Neutrophils % 74.2 H Seg Neuts % (Manual) Lymphocytes % (Manual) Monocytes % (Manual) Eosinophils % (Manual) Basophils % (Manual) Nucleated RBC % Seg Neutrophils # 8.6 H Seg Neutrophils # Man Lymphocytes # (Manual) Monocytes # (Manual) Eosinophils # (Manual) PT INR Fibrinogen dRVVT Confirm Interp Factor V Activity POC ABG pH POC ABG pCO2 POC ABG pO2 Sodium Potassium 5.3 H Chloride 97.4 L Carbon Dioxide 19 L BUN 93 H Creatinine 2.6 H Glucose POC Glucose Lactic Acid Calcium Phosphorus Magnesium Direct Bilirubin AST ALT Alkaline Phosphatase Troponin T C-Reactive Protein Total Protein Albumin Prealbumin Triglycerides Cholesterol LDL Cholesterol Direct HDL Cholesterol Urine pH Urine WBC (Auto) Urine Creatinine Urine Total Protein Vancomycin Trough Rheumatoid Factor Complement C4 Miscellaneous Test Crossmatch 10/30/16 10/30/16 10/31/16 17:11 23:56 00:40 WBC RBC Hgb Hct MCV MCH MCHC RDW Plt Count Lymph % (Auto) [place] % (Auto) Lymph # [place] # Baso # Seg Neutrophils % Seg Neuts % (Manual) Lymphocytes % (Manual) Monocytes % (Manual) Eosinophils % (Manual) Basophils % (Manual) Nucleated RBC % Seg Neutrophils # Seg Neutrophils # Man Lymphocytes # (Manual) Monocytes # (Manual) Eosinophils # (Manual) PT INR Fibrinogen dRVVT Confirm Interp Factor V Activity POC ABG pH POC ABG pCO2 POC ABG pO2 Sodium Potassium Chloride Carbon Dioxide BUN Creatinine Glucose POC Glucose 106 H 117 H 120 H Lactic Acid Calcium Phosphorus Magnesium Direct Bilirubin AST ALT Alkaline Phosphatase Troponin T C-Reactive Protein Total Protein Albumin Prealbumin Triglycerides Cholesterol LDL Cholesterol Direct HDL Cholesterol Urine pH Urine WBC (Auto) Urine Creatinine Urine Total Protein Vancomycin Trough Rheumatoid Factor Complement C4 Miscellaneous Test Crossmatch 10/31/16 10/31/16 10/31/16 05:43 07:15 07:15 WBC 12.1 H RBC 2.63 L Hgb 7.7 L Hct 23.3 L MCV MCH MCHC RDW 16.7 H Plt Count Lymph % (Auto) 11.7 L [place] % (Auto) 7.7 H Lymph # [place] # 0.9 H Baso # Seg Neutrophils % 78.0 H Seg Neuts % (Manual) Lymphocytes % (Manual) Monocytes % (Manual) Eosinophils % (Manual) Basophils % (Manual) Nucleated RBC % Seg Neutrophils # 9.4 H Seg Neutrophils # Man Lymphocytes # (Manual) Monocytes # (Manual) Eosinophils # (Manual) PT INR Fibrinogen dRVVT Confirm Interp Factor V Activity POC ABG pH POC ABG pCO2 POC ABG pO2 Sodium Potassium Chloride 96.4 L Carbon Dioxide 21 L BUN 99 H Creatinine 2.6 H Glucose 144 H POC Glucose 125 H Lactic Acid Calcium Phosphorus 4.80 H Magnesium Direct Bilirubin AST ALT Alkaline Phosphatase Troponin T C-Reactive Protein Total Protein Albumin Prealbumin Triglycerides Cholesterol LDL Cholesterol Direct HDL Cholesterol Urine pH Urine WBC (Auto) Urine Creatinine Urine Total Protein Vancomycin Trough Rheumatoid Factor Complement C4 Miscellaneous Test Crossmatch 10/31/16 10/31/16 11/01/16 11:46 18:34 00:20 WBC RBC Hgb Hct MCV MCH MCHC RDW Plt Count Lymph % (Auto) [place] % (Auto) Lymph # [place] # Baso # Seg Neutrophils % Seg Neuts % (Manual) Lymphocytes % (Manual) Monocytes % (Manual) Eosinophils % (Manual) Basophils % (Manual) Nucleated RBC % Seg Neutrophils # Seg Neutrophils # Man Lymphocytes # (Manual) Monocytes # (Manual) Eosinophils # (Manual) PT INR Fibrinogen dRVVT Confirm Interp Factor V Activity POC ABG pH POC ABG pCO2 POC ABG pO2 Sodium Potassium Chloride Carbon Dioxide BUN Creatinine Glucose POC Glucose 159 H 140 H 132 H Lactic Acid Calcium Phosphorus Magnesium Direct Bilirubin AST ALT Alkaline Phosphatase Troponin T C-Reactive Protein Total Protein Albumin Prealbumin Triglycerides Cholesterol LDL Cholesterol Direct HDL Cholesterol Urine pH Urine WBC (Auto) Urine Creatinine Urine Total Protein Vancomycin Trough Rheumatoid Factor Complement C4 Miscellaneous Test Crossmatch 11/01/16 11/01/16 11/01/16 04:55 04:55 06:11 WBC 11.2 H RBC 2.68 L Hgb 7.5 L Hct 23.7 L MCV MCH MCHC RDW 16.1 H Plt Count Lymph % (Auto) [place] % (Auto) 9.8 H Lymph # [place] # 1.1 H Baso # Seg Neutrophils % 70.8 H Seg Neuts % (Manual) Lymphocytes % (Manual) Monocytes % (Manual) Eosinophils % (Manual) Basophils % (Manual) Nucleated RBC % Seg Neutrophils # 7.9 H Seg Neutrophils # Man Lymphocytes # (Manual) Monocytes # (Manual) Eosinophils # (Manual) PT INR Fibrinogen dRVVT Confirm Interp Factor V Activity POC ABG pH POC ABG pCO2 POC ABG pO2 Sodium Potassium 3.3 L D Chloride Carbon Dioxide BUN 61 H Creatinine 1.9 H Glucose 114 H POC Glucose 115 H Lactic Acid Calcium Phosphorus 1.80 L D Magnesium Direct Bilirubin AST ALT Alkaline Phosphatase Troponin T C-Reactive Protein Total Protein Albumin Prealbumin Triglycerides Cholesterol LDL Cholesterol Direct HDL Cholesterol Urine pH Urine WBC (Auto) Urine Creatinine Urine Total Protein Vancomycin Trough Rheumatoid Factor Complement C4 Miscellaneous Test Crossmatch 11/01/16 11/01/16 11/01/16 12:29 18:23 23:58 WBC RBC Hgb Hct MCV MCH MCHC RDW Plt Count Lymph % (Auto) [place] % (Auto) Lymph # [place] # Baso # Seg Neutrophils % Seg Neuts % (Manual) Lymphocytes % (Manual) Monocytes % (Manual) Eosinophils % (Manual) Basophils % (Manual) Nucleated RBC % Seg Neutrophils # Seg Neutrophils # Man Lymphocytes # (Manual) Monocytes # (Manual) Eosinophils # (Manual) PT INR Fibrinogen dRVVT Confirm Interp Factor V Activity POC ABG pH POC ABG pCO2 POC ABG pO2 Sodium Potassium Chloride Carbon Dioxide BUN Creatinine Glucose POC Glucose 142 H 143 H 128 H Lactic Acid Calcium Phosphorus Magnesium Direct Bilirubin AST ALT Alkaline Phosphatase Troponin T C-Reactive Protein Total Protein Albumin Prealbumin Triglycerides Cholesterol LDL Cholesterol Direct HDL Cholesterol Urine pH Urine WBC (Auto) Urine Creatinine Urine Total Protein Vancomycin Trough Rheumatoid Factor Complement C4 Miscellaneous Test Crossmatch 11/02/16 11/02/16 11/02/16 04:16 05:29 11:58 WBC RBC Hgb Hct MCV MCH MCHC RDW Plt Count Lymph % (Auto) [place] % (Auto) Lymph # [place] # Baso # Seg Neutrophils % Seg Neuts % (Manual) Lymphocytes % (Manual) Monocytes % (Manual) Eosinophils % (Manual) Basophils % (Manual) Nucleated RBC % Seg Neutrophils # Seg Neutrophils # Man Lymphocytes # (Manual) Monocytes # (Manual) Eosinophils # (Manual) PT INR Fibrinogen dRVVT Confirm Interp Factor V Activity POC ABG pH POC ABG pCO2 POC ABG pO2 Sodium Potassium 3.1 L Chloride Carbon Dioxide BUN 73 H Creatinine 2.3 H Glucose 112 H POC Glucose 135 H 149 H Lactic Acid Calcium Phosphorus Magnesium Direct Bilirubin AST ALT Alkaline Phosphatase Troponin T C-Reactive Protein Total Protein Albumin Prealbumin Triglycerides Cholesterol LDL Cholesterol Direct HDL Cholesterol Urine pH Urine WBC (Auto) Urine Creatinine Urine Total Protein Vancomycin Trough Rheumatoid Factor Complement C4 Miscellaneous Test Crossmatch 11/02/16 11/02/16 11/03/16 17:42 22:54 06:00 WBC RBC Hgb Hct MCV MCH MCHC RDW Plt Count Lymph % (Auto) [place] % (Auto) Lymph # [place] # Baso # Seg Neutrophils % Seg Neuts % (Manual) Lymphocytes % (Manual) Monocytes % (Manual) Eosinophils % (Manual) Basophils % (Manual) Nucleated RBC % Seg Neutrophils # Seg Neutrophils # Man Lymphocytes # (Manual) Monocytes # (Manual) Eosinophils # (Manual) PT INR Fibrinogen dRVVT Confirm Interp Factor V Activity POC ABG pH POC ABG pCO2 POC ABG pO2 Sodium Potassium Chloride 96.7 L Carbon Dioxide BUN 41 H Creatinine 1.5 H Glucose 145 H POC Glucose 182 H 115 H Lactic Acid Calcium Phosphorus 1.60 L D Magnesium 1.50 L Direct Bilirubin AST ALT Alkaline Phosphatase Troponin T C-Reactive Protein Total Protein Albumin Prealbumin Triglycerides Cholesterol LDL Cholesterol Direct HDL Cholesterol Urine pH Urine WBC (Auto) Urine Creatinine Urine Total Protein Vancomycin Trough Rheumatoid Factor Complement C4 Miscellaneous Test Crossmatch 11/03/16 11/03/16 11/03/16 11:53 17:45 23:37 WBC RBC Hgb Hct MCV MCH MCHC RDW Plt Count Lymph % (Auto) [place] % (Auto) Lymph # [place] # Baso # Seg Neutrophils % Seg Neuts % (Manual) Lymphocytes % (Manual) Monocytes % (Manual) Eosinophils % (Manual) Basophils % (Manual) Nucleated RBC % Seg Neutrophils # Seg Neutrophils # Man Lymphocytes # (Manual) Monocytes # (Manual) Eosinophils # (Manual) PT INR Fibrinogen dRVVT Confirm Interp Factor V Activity POC ABG pH POC ABG pCO2 POC ABG pO2 Sodium Potassium Chloride Carbon Dioxide BUN Creatinine Glucose POC Glucose 131 H 134 H 113 H Lactic Acid Calcium Phosphorus Magnesium Direct Bilirubin AST ALT Alkaline Phosphatase Troponin T C-Reactive Protein Total Protein Albumin Prealbumin Triglycerides Cholesterol LDL Cholesterol Direct HDL Cholesterol Urine pH Urine WBC (Auto) Urine Creatinine Urine Total Protein Vancomycin Trough Rheumatoid Factor Complement C4 Miscellaneous Test Crossmatch 11/04/16 11/04/16 11/04/16 05:41 06:00 12:10 WBC RBC Hgb Hct MCV MCH MCHC RDW Plt Count Lymph % (Auto) [place] % (Auto) Lymph # [place] # Baso # Seg Neutrophils % Seg Neuts % (Manual) Lymphocytes % (Manual) Monocytes % (Manual) Eosinophils % (Manual) Basophils % (Manual) Nucleated RBC % Seg Neutrophils # Seg Neutrophils # Man Lymphocytes # (Manual) Monocytes # (Manual) Eosinophils # (Manual) PT INR Fibrinogen dRVVT Confirm Interp Factor V Activity POC ABG pH POC ABG pCO2 POC ABG pO2 Sodium Potassium Chloride 96.7 L Carbon Dioxide BUN 52 H Creatinine 1.9 H Glucose 126 H POC Glucose 137 H 191 H Lactic Acid Calcium Phosphorus Magnesium Direct Bilirubin AST ALT Alkaline Phosphatase Troponin T C-Reactive Protein Total Protein Albumin Prealbumin Triglycerides Cholesterol LDL Cholesterol Direct HDL Cholesterol Urine pH Urine WBC (Auto) Urine Creatinine Urine Total Protein Vancomycin Trough Rheumatoid Factor Complement C4 Miscellaneous Test Crossmatch 11/04/16 11/05/16 11/05/16 22:57 03:10 05:10 WBC RBC Hgb Hct MCV MCH MCHC RDW Plt Count Lymph % (Auto) [place] % (Auto) Lymph # [place] # Baso # Seg Neutrophils % Seg Neuts % (Manual) Lymphocytes % (Manual) Monocytes % (Manual) Eosinophils % (Manual) Basophils % (Manual) Nucleated RBC % Seg Neutrophils # Seg Neutrophils # Man Lymphocytes # (Manual) Monocytes # (Manual) Eosinophils # (Manual) PT INR Fibrinogen dRVVT Confirm Interp Factor V Activity POC ABG pH POC ABG pCO2 POC ABG pO2 Sodium 136 L Potassium Chloride 97.2 L Carbon Dioxide BUN 32 H Creatinine 1.3 H Glucose 123 H POC Glucose 125 H 108 H Lactic Acid Calcium 7.8 L Phosphorus Magnesium Direct Bilirubin AST ALT Alkaline Phosphatase Troponin T C-Reactive Protein Total Protein Albumin Prealbumin Triglycerides Cholesterol LDL Cholesterol Direct HDL Cholesterol Urine pH Urine WBC (Auto) Urine Creatinine Urine Total Protein Vancomycin Trough Rheumatoid Factor Complement C4 Miscellaneous Test Crossmatch 11/05/16 11/05/16 11/05/16 12:23 13:09 13:25 WBC RBC Hgb Hct MCV MCH MCHC RDW Plt Count Lymph % (Auto) [place] % (Auto) Lymph # [place] # Baso # Seg Neutrophils % Seg Neuts % (Manual) Lymphocytes % (Manual) Monocytes % (Manual) Eosinophils % (Manual) Basophils % (Manual) Nucleated RBC % Seg Neutrophils # Seg Neutrophils # Man Lymphocytes # (Manual) Monocytes # (Manual) Eosinophils # (Manual) PT INR Fibrinogen dRVVT Confirm Interp Factor V Activity POC ABG pH POC ABG pCO2 POC ABG pO2 Sodium Potassium Chloride Carbon Dioxide BUN Creatinine Glucose POC Glucose 124 H Lactic Acid Calcium Phosphorus Magnesium Direct Bilirubin AST ALT Alkaline Phosphatase Troponin T C-Reactive Protein 11.40 H Total Protein Albumin Prealbumin Triglycerides Cholesterol LDL Cholesterol Direct HDL Cholesterol Urine pH 9.0 H Urine WBC (Auto) Urine Creatinine Urine Total Protein Vancomycin Trough Rheumatoid Factor Complement C4 Miscellaneous Test Crossmatch 11/05/16 11/05/16 11/05/16 13:25 17:54 23:42 WBC RBC Hgb Hct MCV MCH MCHC RDW Plt Count Lymph % (Auto) [place] % (Auto) Lymph # [place] # Baso # Seg Neutrophils % Seg Neuts % (Manual) Lymphocytes % (Manual) Monocytes % (Manual) Eosinophils % (Manual) Basophils % (Manual) Nucleated RBC % Seg Neutrophils # Seg Neutrophils # Man Lymphocytes # (Manual) Monocytes # (Manual) Eosinophils # (Manual) PT INR Fibrinogen dRVVT Confirm Interp Factor V Activity POC ABG pH POC ABG pCO2 POC ABG pO2 Sodium Potassium Chloride Carbon Dioxide BUN Creatinine Glucose POC Glucose 114 H 134 H Lactic Acid Calcium Phosphorus Magnesium Direct Bilirubin AST ALT Alkaline Phosphatase Troponin T C-Reactive Protein Total Protein Albumin Prealbumin Triglycerides Cholesterol LDL Cholesterol Direct HDL Cholesterol Urine pH Urine WBC (Auto) Urine Creatinine Urine Total Protein Vancomycin Trough Rheumatoid Factor Complement C4 Miscellaneous Test Flexitest 1 H Crossmatch 11/06/16 11/06/16 11/06/16 04:56 06:25 06:25 WBC RBC 2.50 L Hgb 7.3 L Hct 22.5 L MCV MCH MCHC RDW 16.9 H Plt Count Lymph % (Auto) [place] % (Auto) 10.5 H Lymph # [place] # 1.1 H Baso # Seg Neutrophils % Seg Neuts % (Manual) Lymphocytes % (Manual) Monocytes % (Manual) Eosinophils % (Manual) Basophils % (Manual) Nucleated RBC % Seg Neutrophils # Seg Neutrophils # Man Lymphocytes # (Manual) Monocytes # (Manual) Eosinophils # (Manual) PT INR Fibrinogen dRVVT Confirm Interp Factor V Activity POC ABG pH POC ABG pCO2 POC ABG pO2 Sodium Potassium 5.1 H Chloride 95.9 L Carbon Dioxide BUN 52 H Creatinine 1.8 H Glucose 117 H POC Glucose 120 H Lactic Acid Calcium Phosphorus Magnesium Direct Bilirubin AST 103 H ALT 77 H Alkaline Phosphatase 285 H Troponin T C-Reactive Protein Total Protein 6.2 L Albumin 1.8 L Prealbumin 0.180 L Triglycerides Cholesterol LDL Cholesterol Direct HDL Cholesterol Urine pH Urine WBC (Auto) Urine Creatinine Urine Total Protein Vancomycin Trough Rheumatoid Factor Complement C4 Miscellaneous Test Crossmatch 11/06/16 11/06/16 11/06/16 11:56 17:14 23:52 WBC RBC Hgb Hct MCV MCH MCHC RDW Plt Count Lymph % (Auto) [place] % (Auto) Lymph # [place] # Baso # Seg Neutrophils % Seg Neuts % (Manual) Lymphocytes % (Manual) Monocytes % (Manual) Eosinophils % (Manual) Basophils % (Manual) Nucleated RBC % Seg Neutrophils # Seg Neutrophils # Man Lymphocytes # (Manual) Monocytes # (Manual) Eosinophils # (Manual) PT INR Fibrinogen dRVVT Confirm Interp Factor V Activity POC ABG pH POC ABG pCO2 POC ABG pO2 Sodium Potassium Chloride Carbon Dioxide BUN Creatinine Glucose POC Glucose 141 H 125 H 130 H Lactic Acid Calcium Phosphorus Magnesium Direct Bilirubin AST ALT Alkaline Phosphatase Troponin T C-Reactive Protein Total Protein Albumin Prealbumin Triglycerides Cholesterol LDL Cholesterol Direct HDL Cholesterol Urine pH Urine WBC (Auto) Urine Creatinine Urine Total Protein Vancomycin Trough Rheumatoid Factor Complement C4 Miscellaneous Test Crossmatch 11/07/16 11/07/16 11/07/16 06:30 06:30 09:37 WBC RBC 2.18 L Hgb 6.3 L Hct 19.7 L* MCV MCH MCHC RDW 16.8 H Plt Count Lymph % (Auto) [place] % (Auto) 10.0 H Lymph # [place] # 1.0 H Baso # Seg Neutrophils % Seg Neuts % (Manual) Lymphocytes % (Manual) Monocytes % (Manual) Eosinophils % (Manual) Basophils % (Manual) Nucleated RBC % Seg Neutrophils # Seg Neutrophils # Man Lymphocytes # (Manual) Monocytes # (Manual) Eosinophils # (Manual) PT INR Fibrinogen dRVVT Confirm Interp Factor V Activity POC ABG pH POC ABG pCO2 POC ABG pO2 Sodium 135 L Potassium Chloride 95.6 L Carbon Dioxide BUN 70 H Creatinine 2.0 H Glucose 126 H POC Glucose Lactic Acid Calcium Phosphorus Magnesium Direct Bilirubin AST ALT Alkaline Phosphatase Troponin T C-Reactive Protein Total Protein Albumin Prealbumin Triglycerides Cholesterol LDL Cholesterol Direct HDL Cholesterol Urine pH Urine WBC (Auto) Urine Creatinine Urine Total Protein Vancomycin Trough Rheumatoid Factor Complement C4 Miscellaneous Test Crossmatch See Detail 11/07/16 11/07/16 11/07/16 12:52 18:51 21:26 WBC RBC Hgb Hct MCV MCH MCHC RDW Plt Count Lymph % (Auto) [place] % (Auto) Lymph # [place] # Baso # Seg Neutrophils % Seg Neuts % (Manual) Lymphocytes % (Manual) Monocytes % (Manual) Eosinophils % (Manual) Basophils % (Manual) Nucleated RBC % Seg Neutrophils # Seg Neutrophils # Man Lymphocytes # (Manual) Monocytes # (Manual) Eosinophils # (Manual) PT INR Fibrinogen dRVVT Confirm Interp Factor V Activity POC ABG pH 7.523 H POC ABG pCO2 34.6 L POC ABG pO2 53 L Sodium Potassium Chloride Carbon Dioxide BUN Creatinine Glucose POC Glucose 142 H 155 H Lactic Acid Calcium Phosphorus Magnesium Direct Bilirubin AST ALT Alkaline Phosphatase Troponin T C-Reactive Protein Total Protein Albumin Prealbumin Triglycerides Cholesterol LDL Cholesterol Direct HDL Cholesterol Urine pH Urine WBC (Auto) Urine Creatinine Urine Total Protein Vancomycin Trough Rheumatoid Factor Complement C4 Miscellaneous Test Crossmatch 11/07/16 21:34 WBC RBC Hgb Hct MCV MCH MCHC RDW Plt Count Lymph % (Auto) [place] % (Auto) Lymph # [place] # Baso # Seg Neutrophils % Seg Neuts % (Manual) Lymphocytes % (Manual) Monocytes % (Manual) Eosinophils % (Manual) Basophils % (Manual) Nucleated RBC % Seg Neutrophils # Seg Neutrophils # Man Lymphocytes # (Manual) Monocytes # (Manual) Eosinophils # (Manual) PT INR Fibrinogen dRVVT Confirm Interp Factor V Activity POC ABG pH POC ABG pCO2 POC ABG pO2 Sodium Potassium Chloride Carbon Dioxide BUN Creatinine Glucose POC Glucose 113 H Lactic Acid Calcium Phosphorus Magnesium Direct Bilirubin AST ALT Alkaline Phosphatase Troponin T C-Reactive Protein Total Protein Albumin Prealbumin Triglycerides Cholesterol LDL Cholesterol Direct HDL Cholesterol Urine pH Urine WBC (Auto) Urine Creatinine Urine Total Protein Vancomycin Trough Rheumatoid Factor Complement C4 Miscellaneous Test Crossmatch Allied health notes reviewed: RT
--- NOTE | 2016-11-08 12:08 | Progress Note ---
Assessment and Plan Patient continues to be stable. Wounds are not healed as of yet. She is off the ventilator at this time and appears to be tolerating well. Will hold-off on any other interventions for the time being Subjective Date of service: 11/08/16 Patient Reports: Positive: no new complaints (Patient non-verbal. ) Objective Vital Signs - 12hr 11/08/16 11/08/16 11/08/16 00:30 01:00 01:30 Temperature Pulse Rate 110 H 109 H 107 H Pulse Rate [ From Monitor] Respiratory 24 25 H 19 Rate Blood Pressure 116/80 133/84 128/71 O2 Sat by Pulse 99 99 99 Oximetry O2 Sat by Pulse Oximetry [ Assessment] 11/08/16 11/08/16 11/08/16 02:00 02:31 03:01 Temperature Pulse Rate 110 H 111 H 129 H Pulse Rate [ From Monitor] Respiratory 23 23 28 H Rate Blood Pressure 137/81 153/93 153/93 O2 Sat by Pulse 99 100 Oximetry O2 Sat by Pulse Oximetry [ Assessment] 11/08/16 11/08/16 11/08/16 03:31 04:00 04:31 Temperature 99.9 F H Pulse Rate 115 H 115 H 116 H Pulse Rate [ 114 H From Monitor] Respiratory 23 24 22 Rate Blood Pressure 144/81 148/103 144/81 O2 Sat by Pulse 96 99 96 Oximetry O2 Sat by Pulse Oximetry [ Assessment] 11/08/16 11/08/16 11/08/16 05:00 05:31 06:01 Temperature Pulse Rate 115 H 113 H 111 H Pulse Rate [ From Monitor] Respiratory 21 26 H 23 Rate Blood Pressure 145/77 145/77 124/55 O2 Sat by Pulse 97 91 92 Oximetry O2 Sat by Pulse Oximetry [ Assessment] 11/08/16 11/08/16 11/08/16 06:31 06:41 07:38 Temperature 100.1 F H Pulse Rate 115 H 114 H Pulse Rate [ From Monitor] Respiratory 24 Rate Blood Pressure 124/55 124/55 O2 Sat by Pulse 95 Oximetry O2 Sat by Pulse Oximetry [ Assessment] 11/08/16 11/08/16 11/08/16 08:00 08:45 08:57 Temperature Pulse Rate Pulse Rate [ 104 H From Monitor] Respiratory Rate Blood Pressure O2 Sat by Pulse 95 98 Oximetry O2 Sat by Pulse 97 Oximetry [ Assessment] 11/08/16 10:25 Temperature Pulse Rate 120 H Pulse Rate [ From Monitor] Respiratory Rate Blood Pressure 128/83 O2 Sat by Pulse Oximetry O2 Sat by Pulse Oximetry [ Assessment] - General physical appearance no distress, no pain, chronically ill, obese - Eyes PERRL, other (Duboff tube in place, T-trach collar) - ENT normal nares, normal mucosa - Respiratory normal expansion, normal respiratory effort, clear to auscultation - Abdomen soft, bowel sounds normal, not distended, not rebound, not guarding, not rigid, wound (minimal drainage seen from wounds. Covered with ostomy appliance) - Integumentary no rash, no growths - Neurologic other (Non-verbal. Able to track with eyes) - Labs 11/07/16 06:30 11/07/16 06:30
[2016-11-08] MEDS: TRANSDERM-SCOP TD SCH (13:44)
[2016-11-08 14:32] LABS: Hematocrit 22.7 % (30.3-42.9); Hemoglobin 7.7 gm/dl (10.1-14.3); Mean Corpuscular HGB Conc 34 % (30-34); Mean Corpuscular Hemoglobin 29 pg (28-32); Mean Corpuscular Volume 86 fl (79-97); Platelet Count 226 K/mm3 (140-440); Red Blood Count 2.63 M/mm3 (3.65-5.03)
--- NOTE | 2016-11-08 16:56 | Progress Note ---
Subjective Principal diagnosis: Acute resp failure on MVS; S/P Acute CVA; Acute Encephalopathy; JUANITA Interval history: Patient was seen today for follow-up around 9:30 in the morning on multiple renal-related issues patient is alert awake hypertension tachycardia improving Vas-Cath has been removed Events of 24 hours, interdisciplinary notes were also reviewed Lab results were reviewed Social history: Reviewed Medication: Reviewed Family history: Reviewed Allergies: Reviewed Physical examination General; no acute distress.she is alert awake HEENT: Mild pallor no icterus oral mucosa moist Neck: Supple soft no jugular venous distention Chest: Bilateral clear to auscultation anteriorly posteriorly a few faint basilar crackles at the lung bases no wheezes Cardiovascular: S1-S2 heart no S3-S4 Abdomen: Soft nontender no voluntary guarding rigidity rebound no organomegaly no masses no suprapubic fullness no CVA tenderness Extremity: Minimal edema dry skin no tenderness in the Area Derm: Dry skin Assessment and plan acute and chronic renal failure: Patient is currently dialysis dependent Patient may have an infected dialysis catheter, will need antibiotic follow-up catheter exchange if needed It is quite likely that her permacath could also be infected Vas-Cath has been removed from the right upper part of chest Anemia and renal failure would like to avoid erythropoietin with history of recent stroke Accelerated hypertension or tachycardia clinically doing better Hyperkalemia appears to be improving continue with dialysis 3 times a week as tolerated patient is high mortality risk due to multiple comorbidities We'll continue to follow and make recommendation from renal standpoint Objective - Vital Signs Vital signs: Vital Signs - 12hr 11/08/16 11/08/16 11/08/16 05:00 05:31 06:01 Temperature Pulse Rate 115 H 113 H 111 H Pulse Rate [ From Monitor] Respiratory 21 26 H 23 Rate Blood Pressure 145/77 145/77 124/55 O2 Sat by Pulse 97 91 92 Oximetry O2 Sat by Pulse Oximetry [ Assessment] 11/08/16 11/08/16 11/08/16 06:31 06:41 07:00 Temperature Pulse Rate 115 H 114 H 106 H Pulse Rate [ From Monitor] Respiratory 24 26 H Rate Blood Pressure 124/55 124/55 124/55 O2 Sat by Pulse 95 98 Oximetry O2 Sat by Pulse Oximetry [ Assessment] 11/08/16 11/08/16 11/08/16 07:31 07:38 08:00 Temperature 100.1 F H Pulse Rate 105 H 104 H Pulse Rate [ 104 H From Monitor] Respiratory 24 27 H Rate Blood Pressure 120/61 120/61 O2 Sat by Pulse 94 95 Oximetry O2 Sat by Pulse Oximetry [ Assessment] 11/08/16 11/08/16 11/08/16 08:30 08:45 08:57 Temperature Pulse Rate 107 H Pulse Rate [ From Monitor] Respiratory 21 Rate Blood Pressure 131/77 O2 Sat by Pulse 97 98 Oximetry O2 Sat by Pulse 97 Oximetry [ Assessment] 11/08/16 11/08/16 11/08/16 09:00 09:30 10:00 Temperature Pulse Rate 105 H 112 H 118 H Pulse Rate [ From Monitor] Respiratory Rate Blood Pressure 131/80 131/80 128/83 O2 Sat by Pulse 100 97 95 Oximetry O2 Sat by Pulse Oximetry [ Assessment] 11/08/16 11/08/16 11/08/16 10:25 10:30 11:00 Temperature Pulse Rate 120 H 118 H 117 H Pulse Rate [ From Monitor] Respiratory Rate Blood Pressure 128/83 128/83 140/86 O2 Sat by Pulse 94 95 Oximetry O2 Sat by Pulse Oximetry [ Assessment] 11/08/16 11/08/16 11/08/16 11:30 12:00 12:30 Temperature 99.4 F Pulse Rate 114 H 117 H 120 H Pulse Rate [ 120 H From Monitor] Respiratory Rate Blood Pressure 140/86 153/93 153/93 O2 Sat by Pulse 98 Oximetry O2 Sat by Pulse Oximetry [ Assessment] 11/08/16 11/08/16 11/08/16 13:00 13:30 14:00 Temperature Pulse Rate 119 H 119 H 122 H Pulse Rate [ From Monitor] Respiratory Rate Blood Pressure 160/92 160/92 157/97 O2 Sat by Pulse 98 Oximetry O2 Sat by Pulse Oximetry [ Assessment] 11/08/16 11/08/16 11/08/16 14:30 15:00 15:30 Temperature Pulse Rate 108 H 105 H 107 H Pulse Rate [ From Monitor] Respiratory 38 H 41 H 38 H Rate Blood Pressure 160/92 161/92 161/92 O2 Sat by Pulse 97 97 96 Oximetry O2 Sat by Pulse Oximetry [ Assessment] 11/08/16 16:00 Temperature 100.9 F H Pulse Rate 107 H Pulse Rate [ From Monitor] Respiratory 42 H Rate Blood Pressure 166/92 O2 Sat by Pulse 96 Oximetry O2 Sat by Pulse Oximetry [ Assessment] - Lab 11/08/16 13:03 11/07/16 06:30 Most recent lab results Calcium 8.4 mg/dL (8.4-10.2) 11/07/16 06:30 Phosphorus 4.40 mg/dL (2.5-4.5) 11/07/16 06:30 Magnesium 2.20 mg/dL (1.7-2.3) 11/07/16 06:30 Urine Creatinine TNR 10/29/16 07:45 Urine Sodium 36 mEq/L 09/16/16 19:19 Urine Total Protein 16 mg/dL (5-11.8) H 09/16/16 19:19
[2016-11-08] MEDS: APRESOLINE IV PRN (21:15)
[2016-11-08] MEDS: MORPHINE IV PRN (21:15)
[2016-11-09] MEDS: HumuLIN R SUB-Q SCH ×5 (00:55→23:52)
[2016-11-09] MEDS: LOPRESSOR PO SCH ×4 (05:02→23:56)
[2016-11-09 05:58] LABS: Basophils # (Auto) 0.1 K/mm3 (0.0-0.1); Eosinophils # (Auto) 0.2 K/mm3 (0.0-0.4); Eosinophils % (Auto) 1.7 % (0.0-4.3); Hematocrit 23.3 % (30.3-42.9); Hemoglobin 7.8 gm/dl (10.1-14.3); Lymphocytes % (Auto) 21.5 % (13.4-35.0); Mean Corpuscular HGB Conc 34 % (30-34); Mean Corpuscular Hemoglobin 29 pg (28-32); Mean Corpuscular Volume 87 fl (79-97); Monocytes # (Auto) 1.1 K/mm3 (0.0-0.8); Monocytes % (Auto) 12.1 % (0.0-7.3); Platelet Count 247 K/mm3 (140-440); Red Blood Count 2.68 M/mm3 (3.65-5.03)
--- NOTE | 2016-11-09 09:12 | Progress Note ---
Subjective Principal diagnosis: Acute resp failure on MVS; S/P Acute CVA; Acute Encephalopathy; JUANITA Interval history: Patient was seen today for follow-up she remains on ventilator T piece, Dialysis dependent Vas-Cath has been removed Events of 24 hours noted Vitals labs intake output medications reviewed HEENT: Oral mucosa moist Neck supple no JVD Chest: Clear to auscultation Heart: Regular rate and rhythm Abdomen: Soft nontender Extremity: Mild edema dry skin Assessment and plan acute on chronic renal failure: Patient is currently dialysis dependent Accelerated hypertension with tachycardia: Slowly improving Anemia and renal failure. Taken off erythropoietin due to recent stroke packed red blood cell transfusion as needed History of stroke, respiratory failure Fever etiology unclear at this time possibility of central venous catheter infection cannot be ruled out follow-up on the serial culture, infectious disease recommendations Continuous renal replacement therapy Adjustment of blood pressure medications Overall prognosis in general appears to be poor still no family member here today Supportive care We'll continue to follow and make recommendation from renal standpoint Objective - Vital Signs Vital signs: Vital Signs - 12hr 11/08/16 11/08/16 11/08/16 21:15 22:00 23:00 Temperature Pulse Rate 111 H 114 H 120 H Pulse Rate [ From Monitor] Respiratory 40 H 44 H 37 H Rate Blood Pressure 171/102 161/83 171/90 O2 Sat by Pulse Oximetry 11/08/16 11/08/16 11/09/16 23:12 23:25 00:00 Temperature 99.6 F Pulse Rate 119 H 119 H 96 H Pulse Rate [ From Monitor] Respiratory 42 H 22 Rate Blood Pressure 171/90 171/90 133/67 O2 Sat by Pulse 91 Oximetry 11/09/16 11/09/16 11/09/16 01:00 02:00 03:00 Temperature Pulse Rate 104 H 108 H 107 H Pulse Rate [ From Monitor] Respiratory 46 H 36 H 39 H Rate Blood Pressure 177/88 173/95 185/95 O2 Sat by Pulse Oximetry 11/09/16 11/09/16 11/09/16 03:57 04:00 05:00 Temperature 99.0 F Pulse Rate 114 H 111 H Pulse Rate [ From Monitor] Respiratory 40 H 39 H Rate Blood Pressure 177/90 162/70 O2 Sat by Pulse 95 Oximetry 11/09/16 11/09/16 11/09/16 05:02 06:00 06:30 Temperature Pulse Rate 111 H 99 H 108 H Pulse Rate [ From Monitor] Respiratory 25 H 43 H Rate Blood Pressure 162/70 142/73 142/73 O2 Sat by Pulse 100 Oximetry 11/09/16 11/09/16 11/09/16 07:00 07:30 08:00 Temperature 100.5 F H Pulse Rate 107 H 113 H 106 H Pulse Rate [ 110 H From Monitor] Respiratory 38 H 30 H 38 H Rate Blood Pressure 155/84 155/84 167/93 O2 Sat by Pulse 95 93 97 Oximetry - Lab 11/09/16 04:35 11/09/16 10:15 Most recent lab results Calcium 8.4 mg/dL (8.4-10.2) 11/07/16 06:30 Phosphorus 4.40 mg/dL (2.5-4.5) 11/07/16 06:30 Magnesium 2.20 mg/dL (1.7-2.3) 11/07/16 06:30 Urine Creatinine TNR 10/29/16 07:45 Urine Sodium 36 mEq/L 09/16/16 19:19 Urine Total Protein 16 mg/dL (5-11.8) H 09/16/16 19:19
[2016-11-09] MEDS: COZAAR PO SCH (09:26)
[2016-11-09] MEDS: APRESOLINE IV PRN ×2 (09:26→12:44)
[2016-11-09] MEDS: PROTONIX FEEDTUBE SCH (09:27)
--- NOTE | 2016-11-09 09:29 | Progress Note ---
Assessment and Plan Assessment: 1) Recurrent Sepsis: new episode ? unclear source ? line infection - resolved -S/p multiple episodes of sepsis - initially due to presumed aspiration pneumonia, then septic episode on 09/23 from Candidemia. Then from - peritonitis from gastric perforation +/- UTI. Latest episode was due to abdominal wall abscess at surgical site. -CRP 19 --> 22 -->11 -Procalcitonin=24 --> 16 --> 4.3 --> 1.8 on 10/05 2) History of Peritonitis: from gastric perforation from dislodged PEG with significant ascites -S/P exlap, repair of gastric perforation with wedge gastrectomy, abdominal washout, drain placement on 10/05. 3) History of Candidemia: -Blood cultures positive for Silvia albicans on 09/23 -Blood cultures positive on 09/25 -Blood cultures negative on 09/30 -PICC line changed on 10/03 -Source ? gastric perf (PEG placed on 09/20) +/- TPN +/- central lines -TTE 10/07 no vegetations -PICC exchanged on 10/03 -fully treated with micafungin for 14 days last day 10/13 4) History CA-UTI s/p gutierrez exchanged 5) Diarrhea - ? etiology ? antibiotic-induced, not better 6) Initial presumed aspiration pneumonia 7) Respiratory failure s/p trach 8) Recent CVA-left MCA CVA 9) Uncontrolled HTN 10) Acute on CKD 11) Extensive back skin peeling ? burn from gastric secretions. Doubt allergic reaction - resolved 12) Severe anemia; ? from GI bleed 13) Recent abdominal wall abscess at surgical site-treated Plan: -continue levaquin and vancomycin - day 5 of 7 -monitor fever -eval abdominal wound output ? fistulae Thank you Dr Pierre for your consultation, will follow up with you. Pauline Carias MD Infectious Diseases Specialist [facility] ([facility] M [phone] O [phone] Subjective Date of service: 11/09/16 Principal diagnosis: Acute resp failure on MVS; S/P Acute CVA; Acute Encephalopathy; JUANITA Interval history: Interval history: Fever resolved. remains on the vent t-piece. Microbiology: Blood cultures: 09/13 neg 09/23 Silvia albicans 09/25 Silvia 09/29 neg 10/07 neg 11/05 neg 11/07 ngtd Urine cultures: 09/10 neg 09/13 neg 8/4 10-100K mixed species 10/07 neg 11/05 mixed bacteria Respiratory cultures: 09/07 neg 09/13 neg 8 neg 11/07 pending Wound cultures: 10/17 abd wall wound purulence + Pseudomonas MDR Stool cultures: cath tip 11/07 + Current Antimicrobials: levaquin 11/05 vancomyin 11/07 Previous Antimicrobials: Zosyn 10/07 Vancomycin PO 10/01 Metronidazole 09/25 Micafungin 09/27-10/13 Meropenem 10/10 Vanco 10/17 zosyn 10/21 fluconazole 10/19 cefepime 10/29 Objective - Exam Narrative Exam: General appearance: somnolent, non verbal, on the vent via trach no following commands Eyes: anicteric sclera, moist conjunctivae; PERRLA HENT: Atraumatic; oropharynx limited; Normal external ears. +NGT with greenish secretion Neck: +trach in place; supple, no thyromegaly or lymphadenopathy Lungs: CTA CV: tachycardic Abdomen: Soft, non-tender, +drain with purulent drainage, + diarrhea via rectal tube leaking. +old PEG site no drainage. Right sided Surgical site x 2 with ostomy bag draining thick yellowish secretion Extremities: +peripheral edema no extremity lymphadenopathy Skin: sacral area wounds superficial no purulence Psych: somnolent . Neuro: alert non verbal on the vent. Lines: left arm PICC placed on 10/03 - Constitutional Vitals: Vital Signs Temp Pulse Resp BP Pulse Ox 100.5 F H 110 H 38 H 167/93 97 11/09/16 08:00 11/09/16 08:00 11/09/16 08:00 11/09/16 08:00 11/09/16 08:00 Temperature -Last 24 Hours Temperature 100.5 F Temperature 100.5 F Temperature 99.0 F Temperature 99.6 F Temperature 99.6 F Temperature 99.0 F Temperature 100.9 F Temperature 99.4 F - Labs CBC & Chem 7: 11/09/16 04:35 11/07/16 06:30 Labs: Abnormal lab results 11/08/16 11/08/16 11/09/16 Range/Units 13:03 23:37 04:35 RBC 2.63 L 2.68 L (3.65-5.03) M/mm3 Hgb 7.7 L 7.8 L (10.1-14.3) gm/dl Hct 22.7 L 23.3 L (30.3-42.9) % RDW 17.0 H 17.0 H (13.2-15.2) % [place] % (Auto) 12.1 H (0.0-7.3) % [place] # 1.1 H (0.0-0.8) K/mm3 POC ABG pH 7.478 H (7.35-7.45) POC ABG pCO2 34.0 L (35-45) POC ABG pO2 50 L (80-105)
--- NOTE | 2016-11-09 09:41 | Progress Note ---
Assessment and Plan Assessment and plan: 46-year-old woman with a history of hypertension, diabetes, asthma, hyperlipidemia, chronic kidney disease and anxiety , who was brought in by family because, she couldn't get her words out, her face was also twisted, she was admitted for acute CVA and accelerated hypertension, she had a hx of poor adherence with her medications, and uncontrolled htn. Patient's blood pressure systolically on admission was noted be greater than 260. TPA was started but this was discontinued after 5 minutes because her blood pressure became uncontrolled. The TPA was not initiated again because the patient was outside the TPA window. Fever Reconsulted infectious disease, has recently completed antibiotics Spoke with Dr. Eli of infectious disease. chest x-ray, blood cultures were unremarkable, urine cx growing E cloacea, ID and sens to follow,. fup blood cultures, patient does have a PICC line and a vasc cath, this may be possible etiology of infection, may need to consider exchanging them -still having high fevers, continue levaquin and vancomycin, started on 11/07 -Severe Sepsis with septic shock, recurrent. Patient with multiple episodes of sepsis. Initial episode due to presumed aspiration pneumonia and septic episode on 09/23 from candidemia then a third episode from peritonitis from gastric perforation from dislodged PEG , there was an abscess in the abdomen present at that time that was draining pus. +/-UTI. The latest episode was related to surgical site infection. Fevers have now resolved. Continue antibiotics per ID. Surgical wound infection/gram-negative sepsis/candidemia/peritonitis PEG has been removed Has already completed 14 days of abx and antifungals, ID input appreciated She will need to be on tube feeds through NG tube for a month, and then either a gastrostomy or jejunostomy tube replaced after her GI wounds have healed and infection is cleared -continue wound care to ostomy sites For CT scan of abdomen today JUAINTA, now ESRD Likely due to vasomotor nephropathy and ATN given sepsis Nephrology input appreciated, continue hemodialysis Acute CVA with infarct. sp TPA Continue neuro checks. Neurology input appreciated, CT shows continued evolution of left MCA infarct with slight mass effect and edema, and there is no hemorrhage - PRINCE showed hyperdynamic with ef of 75%, neither clot nor septal defect seen - MRA Brain shows near complete occlusion of M2 and M3 of the left MCA - Repeat CT scan done on 7/23, shows stable findings - carotid doppler negative - Echo shows preserved systolic function but does show some left ventricular diastolic dysfunction - continue asa and statin for secondary ppx Persistent vegetative state This patient's needs placement at either hospice or SNF -She was denied for LTACH Acute hypoxic respiratory failure requiring MV >96hrs Status post tracheostomy, continue to wean off vent, has been tolerating T piece Nosocomial acquired aspiration pneumonia/sepsis/UTI Completed a course of antibiotics Asthma/COPD exacerbation Patient is on antibiotics, steroids and nebs, continue MV, intubated Acute Toxic Metabolic encephalopathy. Likely multifactorial, mostly secondary to evolution of CVA for restlessness, we checked troponin, EKG, CXR which were all negative Hypertensive Emergency Continue current medications Paroxysmal atrial fibrillation with rapid ventricular rate, failed cardioversion Continue current medications, Not a candidate for anticoagulation secondary to anemia thrombocytopenia and massive CVA Hypokalemia/Hypomagnesemia/hypophosphatemia. Replete electrolytes as needed. Diabetes type 2. Continue sliding-scale regular insulin and Accu-Cheks. Hyperlipidemia. Continue statin Nutrition continue tube feeds Anemia requiring multiple transfusions/acute blood loss Has received 13 units of PRBC, , continue to transfuse to keep Hg above 7 Case discussed with the patient's family and pulmonology her POA is her Brother, Jam [phone] Dispo. Very poor prognosis. Plan for SNIF placement, she was ready denied by LTAC The high probability of a clinically significant, sudden or life threatening deterioration of the [cardiovascular and neurological] system(s) required my full and direct attention, intervention and personal management. The aggregate critical care time was [33] minutes. This time is in addition to time spent performing reported procedures but includes the following: [] Data Review and interpretation [] Patient assessment and monitoring of vital signs [] Documentation [] Medication orders and management History Interval history: She opens her eyes, but does not obey commands. Has tracheostomy in place still having fever, tolerating T piece Hospitalist Physical - Physical exam Narrative exam: General: Opens eyes, no distress HEENT: MMM, EOMI cardiac: S1-S2 heard lungs: ventilated breath sounds abdomen: soft, nontender, nondistended bowel sounds positive multiple ostomy bags noted, drainage is reduced extremities: no edema clubbing or cyanosis Skin: no rash or lesion Neuro: Status post tracheostomy, opens eyes, does not obey commands, right- sided weakness - Constitutional Vitals: Temp Pulse Resp BP Pulse Ox 100.5 F H 114 H 38 H 176/102 96 11/09/16 08:00 11/09/16 09:26 11/09/16 08:00 11/09/16 09:26 11/09/16 08:00 General appearance: Present: no acute distress, obese, other (on vent, non- responsive) Results - Labs CBC & Chem 7: 11/09/16 04:35 11/09/16 10:15 Labs: Laboratory Last Values WBC 9.2 K/mm3 (4.5-11.0) 11/09/16 04:35 RBC 2.68 M/mm3 (3.65-5.03) L 11/09/16 04:35 Hgb 7.8 gm/dl (10.1-14.3) L 11/09/16 04:35 Hct 23.3 % (30.3-42.9) L 11/09/16 04:35 MCV 87 fl (79-97) 11/09/16 04:35 MCH 29 pg (28-32) 11/09/16 04:35 MCHC 34 % (30-34) 11/09/16 04:35 RDW 17.0 % (13.2-15.2) H 11/09/16 04:35 Plt Count 247 K/mm3 (140-440) 11/09/16 04:35 Lymph % (Auto) 21.5 % (13.4-35.0) 11/09/16 04:35 [place] % (Auto) 12.1 % (0.0-7.3) H 11/09/16 04:35 Eos % (Auto) 1.7 % (0.0-4.3) 11/09/16 04:35 Baso % (Auto) 1.0 % (0.0-1.8) 11/09/16 04:35 Lymph # 2.0 K/mm3 (1.2-5.4) 11/09/16 04:35 [place] # 1.1 K/mm3 (0.0-0.8) H 11/09/16 04:35 Eos # 0.2 K/mm3 (0.0-0.4) 11/09/16 04:35 Baso # 0.1 K/mm3 (0.0-0.1) 11/09/16 04:35 Add Manual Diff Complete 10/27/16 06:30 Total Counted 100 10/27/16 06:30 Seg Neutrophils % 63.7 % (40.0-70.0) 11/09/16 04:35 Seg Neuts % (Manual) 78.0 % (40.0-70.0) H 10/27/16 06:30 Band Neutrophils % 0 % 10/27/16 06:30 Lymphocytes % (Manual) 14.0 % (13.4-35.0) 10/27/16 06:30 Reactive Lymphs % (Man) 0 % 10/27/16 06:30 Monocytes % (Manual) 7.0 % (0.0-7.3) 10/27/16 06:30 Eosinophils % (Manual) 0 % (0.0-4.3) 10/27/16 06:30 Basophils % (Manual) 1.0 % (0.0-1.8) 10/27/16 06:30 Metamyelocytes % 0 % 10/27/16 06:30 Myelocytes % 0 % 10/27/16 06:30 Promyelocytes % 0 % 10/27/16 06:30 Blast Cells % 0 % 10/27/16 06:30 Nucleated RBC % 2.0 % (0.0-0.9) H 10/27/16 06:30 Seg Neutrophils # 5.8 K/mm3 (1.8-7.7) 11/09/16 04:35 Seg Neutrophils # Man 10.8 K/mm3 (1.8-7.7) H 10/27/16 06:30 Band Neutrophils # 0.0 K/mm3 10/27/16 06:30 Lymphocytes # (Manual) 1.9 K/mm3 (1.2-5.4) 10/27/16 06:30 Abs React Lymphs (Man) 0.0 K/mm3 10/27/16 06:30 Monocytes # (Manual) 1.0 K/mm3 (0.0-0.8) H 10/27/16 06:30 Eosinophils # (Manual) 0.0 K/mm3 (0.0-0.4) 10/27/16 06:30 Basophils # (Manual) 0.1 K/mm3 (0.0-0.1) 10/27/16 06:30 Metamyelocytes # 0.0 K/mm3 10/27/16 06:30 Myelocytes # 0.0 K/mm3 10/27/16 06:30 Promyelocytes # 0.0 K/mm3 10/27/16 06:30 Blast Cells # 0.0 K/mm3 10/27/16 06:30 Pathologist Review 09/13/16 04:00 WBC Morphology Not Reportable 10/27/16 06:30 Hypersegmented Neuts Not Reportable 10/27/16 06:30 Hyposegmented Neuts Not Reportable 10/27/16 06:30 Hypogranular Neuts Not Reportable 10/27/16 06:30 Smudge Cells Not Reportable 10/27/16 06:30 Toxic Granulation Not Reportable 10/27/16 06:30 Toxic Vacuolation Not Reportable 10/27/16 06:30 Dohle Bodies Not Reportable 10/27/16 06:30 Pelger-Huet Anomaly Not Reportable 10/27/16 06:30 Jasmina Rods Not Reportable 10/27/16 06:30 Platelet Estimate Cons 10/27/16 06:30 Clumped Platelets Not Reportable 10/27/16 06:30 Plt Clumps, EDTA Not Reportable 10/27/16 06:30 Large Platelets Few 10/27/16 06:30 Giant Platelets Not Reportable 10/27/16 06:30 Platelet Satelliting Not Reportable 10/27/16 06:30 Plt Morphology Comment Not Reportable 10/27/16 06:30 RBC Morphology Not Reportable 10/27/16 06:30 Dimorphic RBCs Not Reportable 10/27/16 06:30 Polychromasia Not Reportable 10/27/16 06:30 Hypochromasia Not Reportable 10/27/16 06:30 Poikilocytosis Not Reportable 10/27/16 06:30 Anisocytosis 1+ 10/27/16 06:30 Microcytosis Not Reportable 10/27/16 06:30 Macrocytosis Not Reportable 10/27/16 06:30 Spherocytes Not Reportable 10/27/16 06:30 Pappenheimer Bodies Not Reportable 10/27/16 06:30 Sickle Cells Not Reportable 10/27/16 06:30 Target Cells Not Reportable 10/27/16 06:30 Tear Drop Cells Not Reportable 10/27/16 06:30 Ovalocytes Not Reportable 10/27/16 06:30 Stomatocytes Few 10/06/16 03:50 Helmet Cells Not Reportable 10/27/16 06:30 Monet-Maribel Bodies Not Reportable 10/27/16 06:30 [place] Rings Not Reportable 10/27/16 06:30 Chuck Cells Not Reportable 10/27/16 06:30 Bite Cells Not Reportable 10/27/16 06:30 Crenated Cell Not Reportable 10/27/16 06:30 Elliptocytes Not Reportable 10/27/16 06:30 Acanthocytes (Spur) Not Reportable 10/27/16 06:30 Rouleaux Not Reportable 10/27/16 06:30 Hemoglobin C Crystals Not Reportable 10/27/16 06:30 Schistocytes Not Reportable 10/27/16 06:30 Malaria parasites Not Reportable 10/27/16 06:30 ESR > 140.0 mm/Hr (0-20) 09/08/16 11:48 Jun Bodies Not Reportable 10/27/16 06:30 Hem Pathologist Commnt No 10/27/16 06:30 PT 19.0 Sec. (12.2-14.9) H 10/09/16 03:45 INR 1.51 (0.87-1.13) H 10/09/16 03:45 APTT 33.0 Sec. (24.2-36.6) 10/09/16 03:45 Thrombin Time 16.8 Sec. (15.1-19.6) 09/03/16 00:10 Fibrinogen 750 mg/dl (211-480) H 09/08/16 11:48 Lupus Anticoagulant see below 09/12/16 09:59 LA PTT Baseline See scanned report 09/12/16 09:59 dRVVT Confirm Interp Positive (Negative) H 09/12/16 09:59 dRVVT Screen 50:50 See scanned report 09/12/16 09:59 dRVVT Mix Interpret See scanned report 09/12/16 09:59 Protein C Antigen 122 % (70-140) 09/08/16 15:35 Free Protein S 97 % normal (50-147) 09/08/16 15:35 Total Protein S 109 % (70-140) 09/08/16 15:35 Antithrombin III Ag 100 % (80-120) 09/08/16 15:35 Heparin Anti-Xa, Unfract Negative (Negative) 09/29/16 13:35 Factor V Activity 182 % (65-150) H 09/08/16 15:35 POC ABG pH 7.478 (7.35-7.45) H 11/08/16 23:37 POC ABG pCO2 34.0 (35-45) L 11/08/16 23:37 POC ABG pO2 50 (80-105) L 11/08/16 23:37 POC ABG HCO3 25.2 11/08/16 23:37 POC ABG Total CO2 26 11/08/16 23:37 POC ABG O2 Sat 88 11/08/16 23:37 POC ABG Base Excess 2 11/08/16 23:37 FiO2 28 % 11/08/16 23:37 Sodium 135 mmol/L (137-145) L 11/07/16 06:30 Potassium 5.0 mmol/L (3.6-5.0) 11/07/16 06:30 Chloride 95.6 mmol/L (98-107) L 11/07/16 06:30 Carbon Dioxide 25 mmol/L (22-30) 11/07/16 06:30 Anion Gap 19 mmol/L 11/07/16 06:30 BUN 70 mg/dL (7-17) H 11/07/16 06:30 Creatinine 2.0 mg/dL (0.7-1.2) H 11/07/16 06:30 Estimated GFR 33 ml/min 11/07/16 06:30 BUN/Creatinine Ratio 35.00 % 11/07/16 06:30 Glucose 126 mg/dL (65-100) H 11/07/16 06:30 POC Glucose 97 (70-105) 11/09/16 05:23 Osmolality 351 Mosm/kg 09/16/16 11:47 Lactic Acid 4.50 mmol/L (0.7-2.0) H* 09/28/16 07:25 Calcium 8.4 mg/dL (8.4-10.2) 11/07/16 06:30 Phosphorus 4.40 mg/dL (2.5-4.5) 11/07/16 06:30 Magnesium 2.20 mg/dL (1.7-2.3) 11/07/16 06:30 Total Bilirubin 0.20 mg/dL (0.1-1.2) 11/06/16 06:25 Direct Bilirubin 0.3 mg/dL (0-0.2) H 10/10/16 05:00 Indirect Bilirubin 0.1 mg/dL 10/10/16 05:00 AST 103 units/L (5-40) H 11/06/16 06:25 ALT 77 units/L (7-56) H 11/06/16 06:25 Alkaline Phosphatase 285 units/L (35-129) H 11/06/16 06:25 Ammonia 27.0 umol/L (25-60) 09/07/16 08:37 Total Creatine Kinase 121 units/L (30-135) 09/29/16 20:12 CK-MB (CK-2) < 1.0 ng/mL (0.0-4.0) 09/29/16 20:12 CK-MB (CK-2) Rel Index 0.8 (0-4) 09/29/16 20:12 Troponin T 0.204 ng/mL (0.00-0.029) H* 09/29/16 20:12 C-Reactive Protein 11.40 mg/dL (0.00-1.30) H 11/05/16 13:25 Total Protein 6.2 g/dL (6.3-8.2) L 11/06/16 06:25 Albumin 1.8 g/dL (3.9-5) L 11/06/16 06:25 Albumin/Globulin Ratio 0.4 % 11/06/16 06:25 Prealbumin 0.180 g/L (0.200-0.400) L 11/06/16 06:25 Triglycerides 137 mg/dL (2-149) 09/29/16 20:12 Cholesterol 31 mg/dL (50-199) L 09/29/16 20:12 LDL Cholesterol Direct 4 mg/dL (50-130) L 09/29/16 20:12 HDL Cholesterol 3 mg/dL (40-59) L 09/29/16 20:12 Cholesterol/HDL Ratio 10.33 % 09/29/16 20:12 Angiotensin Convert Enz See scanned report 09/08/16 11:48 Renin 0.99 ng/mL/h (0.25-5.82) 10/07/16 10:56 Aldosterone <1 ng/dL () 10/07/16 10:56 Aldosterone/Renin Dir see below 10/07/16 10:56 Serotonin Release Assay See scanned report 09/29/16 13:35 TSH 1.010 mlU/mL (0.270-4.200) 09/07/16 08:37 HCG, Qual Negative (Negative) 09/03/16 00:10 Urine Color Yellow (Yellow) 11/05/16 13:09 Urine Turbidity Clear (Clear) 11/05/16 13:09 Urine pH 9.0 (5.0-7.0) H 11/05/16 13:09 Ur Specific [place] 1.011 (1.003-1.030) 11/05/16 13:09 Urine Protein 100 mg/dl mg/dL (Negative) 11/05/16 13:09 Urine Glucose (UA) Neg mg/dL (Negative) 11/05/16 13:09 Urine Ketones Neg mg/dL (Negative) 11/05/16 13:09 Urine Blood Neg (Negative) 11/05/16 13:09 Urine Nitrite Neg (Negative) 11/05/16 13:09 Urine Bilirubin Neg (Negative) 11/05/16 13:09 Urine Urobilinogen < 2.0 mg/dL (<2.0) 11/05/16 13:09 Ur Leukocyte Esterase Neg (Negative) 11/05/16 13:09 Urine WBC (Auto) 4.0 /HPF (0.0-6.0) 11/05/16 13:09 Urine RBC (Auto) 1.0 /HPF (0.0-6.0) 11/05/16 13:09 U Epithel Cells (Auto) 1.0 /HPF (0-13.0) 10/07/16 18:30 Urine Bacteria (Auto) 4+ /HPF (Negative) 11/05/16 13:09 Urine WBC Clumps 2+ /HPF 09/07/16 02:47 Hyaline Casts 4 /LPF 09/07/16 02:47 Urine Mucus Few /HPF 10/07/16 18:30 Urine Yeast (Budding) 3+ /HPF 10/07/16 18:30 Urine Eosinophils None seen (None Seen) 09/07/16 16:00 Urine Total Volume TNR 10/29/16 07:45 Urine Creatinine TNR 10/29/16 07:45 Height (in) TNR 10/29/16 07:45 Weight (lb) TNR 10/29/16 07:45 Creatinine Clearance TNR 10/29/16 07:45 Urine Sodium 36 mEq/L 09/16/16 19:19 Urine Total Protein 16 mg/dL (5-11.8) H 09/16/16 19:19 Vancomycin Trough 2.3 ug/mL (5.0-20.0) L 09/21/16 13:00 Random Vancomycin 17.0 ug/mL (0-40.0) 10/20/16 06:00 Urine Opiates Screen Presumptive negative 09/03/16 15:11 Urine Methadone Screen Presumptive positive 09/03/16 15:11 Ur Barbiturates Screen Presumptive positive 09/03/16 15:11 Ur Phencyclidine Scrn Presumptive negative 09/03/16 15:11 Ur Amphetamines Screen Presumptive negative 09/03/16 15:11 U Benzodiazepines Scrn Presumptive negative 09/03/16 15:11 Urine Cocaine Screen Presumptive negative 09/03/16 15:11 U Marijuana (THC) Screen Presumptive positive 09/03/16 15:11 Drugs of Abuse Note Disclamer 09/03/16 15:11 Rheumatoid Factor 24 IU/ml (0-13) H 09/08/16 11:48 SAHIL Screen Negative (Negative) 09/07/16 09:20 Proteinase 3 (PR3) Ab <1.0 AI (<1.0) 09/07/16 09:20 Myeloperoxidase Ab <1.0 AI (<1.0) 09/07/16 09:20 Sjogren's Antibody <1.0 AI (<1.0) 09/08/16 15:35 Scl-70 Scleroderma Ab <1.0 AI (<1.0) 09/08/16 15:35 Centromere B Antibody <1.0 AI (<1.0) 09/08/16 12:02 Heparin-induced Plt Ab Negative (Negative) 09/29/16 13:35 UF Heparin High Dose 11 % Release 09/29/16 13:35 SUDHIR UFH Low Dose 0.1 6 % Release 09/29/16 13:35 SUDHIR UFH Low Dose 0.5 8 % Release 09/29/16 13:35 Cardiolipid IgG Ab <14 GPL (<=14) 09/12/16 09:59 Cardiolipid IgA Ab <11 APL (<=11) 09/12/16 09:59 Cardiolipid IgM Ab <12 MPL (<=12) 09/12/16 09:59 Complement C3 148 mg/dL (90-180) 09/07/16 09:20 Complement C4 58 mg/dL (16-47) H 09/07/16 09:20 RPR Nonreactive (Nonreactive) 09/08/16 11:48 Hepatitis A IgM Ab Non-reactive (NonReactive) 09/24/16 14:40 Hep Bs Antigen Non-reactive (Negative) 09/24/16 14:40 Hep B Core IgM Ab Non-reactive (NonReactive) 09/24/16 14:40 Hepatitis C Antibody Non-reactive (NonReactive) 09/24/16 14:40 HIV 1&2 Antibody Rapid Non react (Non React) 09/08/16 11:48 HIV P24 Antigen Non react (Non React) 09/08/16 11:48 Miscellaneous Test Flexitest 1 H 11/05/16 13:25 Blood Type A POSITIVE 11/07/16 09:37 Antibody Screen Negative 11/07/16 09:37 DELORIS Antibody Screen Negative 09/25/16 10:30 Crossmatch See Detail 11/07/16 09:37
[2016-11-09] MEDS: PANCREAZE DR 10,500 UNIT FEEDTUBE PRN (09:47)
[2016-11-09] MEDS: SODIUM BICARBONATE FEEDTUBE PRN (09:47)
[2016-11-09 11:00] LABS: BUN/Creatinine Ratio 28.33; Calcium 8.3 mg/dL (8.4-10.2)
[2016-11-09] MEDS ORDERED: LEVAQUIN 500MG/100ML 500 MG/100 ML BAG IV SCH (11:00)
--- NOTE | 2016-11-09 11:32 | Progress Note ---
Assessment and Plan (1) Acute respiratory failure with hypoxia Current Visit: Yes Status: Acute Plan to address problem: - continue aspiration precautions - continue to wean oxygen for MAP > 94% - continue bronchodilators and pulmonary toilet - s/p tracheostomy - resumed scopolamine - ABG's prn at this point for increased work of breathing or other resp distress - rest on MVS now and for trip to radiology suite (2) Acute CVA (cerebrovascular accident) Current Visit: Yes Status: Acute Plan to address problem: - out of tpA window (initially stopped due to uncontrolled HTN) - Left MCA teritory stroke with some midline shift on last CT - seen by neurology and prognosis for recovery of mental status guarded to poor - optimizing secondary prevention modalities now (BP, lipid anti-platelet therapy) - off systemic steroids now (started earlier for edema) - clinically mild improvement (3) Hypertensive emergency Current Visit: Yes Status: Acute Plan to address problem: - BP's running high today - up-titrate antihypertensives (on metoprolol, clonidine and cozaar - use prn hydralazine - resume sedation while on MVS (4) Obesity (BMI 35.0-39.9 without comorbidity) Current Visit: Yes Status: Chronic Plan to address problem: - now at goal rate on tube feeding - stopped TPN (5) Type 2 diabetes mellitus Current Visit: Yes Status: Chronic Qualifiers: Diabetes mellitus complication status: D Diabetes mellitus complication detail: D Diabetic retinopathy severity: D Proliferative retinopathy type: P Diabetes mellitus macular edema: D 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 : D Laterality: L Chronic kidney disease stage: C Plan to address problem: - continue SSI - discontinued lantus prior re: hypoglycemia - target BG's <180 mg/dl (6) Leukocytosis (leucocytosis) Current Visit: Yes Status: Acute Qualifiers: Leukocytosis type: leukemoid reaction Qualified Code(s): D72.823 - Leukemoid reaction Plan to address problem: - completed cancidas and de-escalate per ID recs - leucocytosis persistent but now trending down - on zosyn and diflucan now - wound cultures growing pseudomonas and dann (7) Agitation Current Visit: Yes Status: Acute Plan to address problem: - prn sedation / analgesia - tapered off seroquel for now (8) Atrial fibrillation Current Visit: Yes Status: Acute Qualifiers: Atrial fibrillation type: A Plan to address problem: - failed cardioversion earlier - cardiology evaluation ongoing - back in A-fib - off amiodarone - p.o. metoprolol scheduled at 50mg q6h (9) JUANITA (acute kidney injury) Current Visit: Yes Status: Acute Plan to address problem: - on Dialysis now - continue HD/UF per nephrology recommendations - s/p tunnelled vas-cath - HD/UF - (10) Pyrexia of unknown origin Current Visit: Yes Status: Acute Plan to address problem: - dopplers negative for DVT - continue to treat with Anti-infectives (11) Severe sepsis Current Visit: Yes Status: Acute Plan to address problem: - resume vasopressors for MAP < 60mmHg not responsive to volume - all central vascular access has been discontinued after fungemia reported - care plan formulated with ID input - BC's from 09/27/16 growing in 1of 2 but still no ID yet - complete micafungin per ID recs and stop date - wound care nurse also managing back wounds - clinically stable and hemodynamically improved - bo to RLQ incision removed and wound drained and packed - on contact precautions for MDRO PSAR - vascath pulled and permacath in use - will send to radiology suite for CT abd/pelvis with oral contrast +/- fistulogram (12) Emesis Current Visit: Yes Status: Acute Qualifiers: Vomiting type: V Vomiting Intractability: V Nausea presence: N Plan to address problem: - s/p surgical repair of gastric perforation - continue TPN for now - follow surgery recommendations re: feeding and new PEG tube - now tolerating tube feeds at goal rate (13) Dysphagia, oropharyngeal Current Visit: Yes Status: Acute Plan to address problem: - discussed with surgeon and she will be best served with continued treatment with anti-infectives as well as time for the GI tract and her wounds to heal before replacing the PEG tube - continue DHT feeding (14) Discharge planning issues Current Visit: Yes Status: Acute Plan to address problem: - she remains critically ill on life sustaining interventions including MVS and at risk for further acute deterioration including - plan is to see if patient can transfer to LTAC in interim and be brought back for PEG placement (currently refused at LTAC) - if can stay off MVS then can transfer to medical floor shortly .....30' CCT ....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 Subjective Date of service: 11/09/16 Principal diagnosis: Acute resp failure on MVS; S/P Acute CVA; Acute Encephalopathy; JUANITA Interval history: Seen and examined at bedside; 24 hour events reviewed; nursing and respiratory care staff consulted; no adverse overnight events reported to me; remained on T- piece overnight but now tiring during dialysis; appears to be attempting to follow simple commands; still tracking better; no emesis or overt aspiration; still draining effluent from RLQ stoma source unclear Objective Vital Signs - 12hr 11/09/16 11/09/16 11/09/16 00:00 01:00 02:00 Temperature 99.6 F Pulse Rate 96 H 104 H 108 H Pulse Rate [ From Monitor] Respiratory 22 46 H 36 H Rate Blood Pressure 133/67 177/88 173/95 O2 Sat by Pulse 91 Oximetry O2 Sat by Pulse Oximetry [ Assessment] 11/09/16 11/09/16 11/09/16 03:00 03:57 04:00 Temperature 99.0 F Pulse Rate 107 H 114 H Pulse Rate [ From Monitor] Respiratory 39 H 40 H Rate Blood Pressure 185/95 177/90 O2 Sat by Pulse 95 Oximetry O2 Sat by Pulse Oximetry [ Assessment] 11/09/16 11/09/16 11/09/16 05:00 05:02 06:00 Temperature Pulse Rate 111 H 111 H 99 H Pulse Rate [ From Monitor] Respiratory 39 H 25 H Rate Blood Pressure 162/70 162/70 142/73 O2 Sat by Pulse Oximetry O2 Sat by Pulse Oximetry [ Assessment] 11/09/16 11/09/16 11/09/16 06:30 07:00 07:30 Temperature Pulse Rate 108 H 107 H 113 H Pulse Rate [ From Monitor] Respiratory 43 H 38 H 30 H Rate Blood Pressure 142/73 155/84 155/84 O2 Sat by Pulse 100 95 93 Oximetry O2 Sat by Pulse Oximetry [ Assessment] 11/09/16 11/09/16 11/09/16 08:00 08:30 09:00 Temperature 100.5 F H Pulse Rate 106 H 109 H 109 H Pulse Rate [ 110 H From Monitor] Respiratory 38 H 40 H 39 H Rate Blood Pressure 167/93 155/84 176/102 O2 Sat by Pulse 97 97 98 Oximetry O2 Sat by Pulse 96 Oximetry [ Assessment] 0911/09/16 11/09/16 09:26 09:30 09:41 Temperature Pulse Rate 112 H 113 H Pulse Rate [ From Monitor] Respiratory 43 H Rate Blood Pressure 176/102 176/102 O2 Sat by Pulse 94 96 Oximetry O2 Sat by Pulse Oximetry [ Assessment] Constitutional: appears uncomfortable, other (eyes open; tracking movements) Eyes: non-icteric, other (tracheostomy tube in midline of neck) ENT: oropharynx moist Neck: supple, no lymphadenopathy Effort: mildly labored Ascultation: Bilateral: rhonchi Cardiovascular: regular rate and rhythm Gastrointestinal: hypoactive bowel sounds, soft, non-tender, non-distended, other (RLQ stomas with colostomy bags) Integumentary: other (healing back burn-like injury) Extremities: no cyanosis, no edema, pulses normal, no ischemia or petechiae Neurologic: pupils equal and round, other (sedated) Psychiatric: other (unable to assess) CBC and BMP: 11/09/16 04:35 11/09/16 10:15 ABG, PT/INR, D-dimer: ABG POC ABG pH 7.478 (7.35-7.45) H 11/08/16 23:37 POC ABG pCO2 34.0 (35-45) L 11/08/16 23:37 POC ABG pO2 50 (80-105) L 11/08/16 23:37 POC ABG HCO3 25.2 11/08/16 23:37 POC ABG Total CO2 26 11/08/16 23:37 POC ABG O2 Sat 88 11/08/16 23:37 PT/INR, D-dimer PT 19.0 Sec. (12.2-14.9) H 10/09/16 03:45 INR 1.51 (0.87-1.13) H 10/09/16 03:45 Abnormal lab findings: Abnormal Labs 09/03/16 09/03/16 09/03/16 12:12 15:07 16:20 WBC RBC Hgb Hct MCV MCH MCHC RDW Plt Count Lymph % (Auto) [place] % (Auto) Lymph # [place] # Baso # Seg Neutrophils % Seg Neuts % (Manual) Lymphocytes % (Manual) Monocytes % (Manual) Eosinophils % (Manual) Basophils % (Manual) Nucleated RBC % Seg Neutrophils # Seg Neutrophils # Man Lymphocytes # (Manual) Monocytes # (Manual) Eosinophils # (Manual) PT INR Fibrinogen dRVVT Confirm Interp Factor V Activity POC ABG pH 7.452 H POC ABG pCO2 POC ABG pO2 Sodium Potassium Chloride Carbon Dioxide BUN Creatinine Glucose POC Glucose 178 H Lactic Acid Calcium Phosphorus 2.20 L Magnesium 1.60 L Direct Bilirubin AST ALT Alkaline Phosphatase Troponin T C-Reactive Protein Total Protein Albumin Prealbumin Triglycerides Cholesterol LDL Cholesterol Direct HDL Cholesterol Urine pH Urine WBC (Auto) Urine Creatinine Urine Total Protein Vancomycin Trough Rheumatoid Factor Complement C4 Miscellaneous Test Crossmatch 09/03/16 09/03/16 09/03/16 17:57 17:58 23:50 WBC RBC Hgb Hct MCV MCH MCHC RDW Plt Count Lymph % (Auto) [place] % (Auto) Lymph # [place] # Baso # Seg Neutrophils % Seg Neuts % (Manual) Lymphocytes % (Manual) Monocytes % (Manual) Eosinophils % (Manual) Basophils % (Manual) Nucleated RBC % Seg Neutrophils # Seg Neutrophils # Man Lymphocytes # (Manual) Monocytes # (Manual) Eosinophils # (Manual) PT INR Fibrinogen dRVVT Confirm Interp Factor V Activity POC ABG pH POC ABG pCO2 POC ABG pO2 Sodium Potassium Chloride Carbon Dioxide BUN Creatinine Glucose POC Glucose 162 H 145 H Lactic Acid Calcium Phosphorus 2.30 L Magnesium Direct Bilirubin AST ALT Alkaline Phosphatase Troponin T C-Reactive Protein Total Protein Albumin Prealbumin Triglycerides Cholesterol LDL Cholesterol Direct HDL Cholesterol Urine pH Urine WBC (Auto) Urine Creatinine Urine Total Protein Vancomycin Trough Rheumatoid Factor Complement C4 Miscellaneous Test Crossmatch 09/04/16 09/04/16 09/04/16 03:31 03:31 05:42 WBC RBC Hgb 9.7 L D Hct MCV 72 L MCH 23 L MCHC RDW 17.5 H Plt Count Lymph % (Auto) 11.1 L [place] % (Auto) Lymph # [place] # Baso # Seg Neutrophils % 84.3 H Seg Neuts % (Manual) Lymphocytes % (Manual) Monocytes % (Manual) Eosinophils % (Manual) Basophils % (Manual) Nucleated RBC % Seg Neutrophils # 8.9 H Seg Neutrophils # Man Lymphocytes # (Manual) Monocytes # (Manual) Eosinophils # (Manual) PT INR Fibrinogen dRVVT Confirm Interp Factor V Activity POC ABG pH POC ABG pCO2 POC ABG pO2 Sodium 135 L Potassium 2.9 L* Chloride 97.2 L Carbon Dioxide 19 L BUN Creatinine 1.7 H Glucose 170 H POC Glucose 152 H Lactic Acid Calcium Phosphorus Magnesium Direct Bilirubin AST ALT Alkaline Phosphatase Troponin T C-Reactive Protein Total Protein Albumin Prealbumin Triglycerides 160 H Cholesterol LDL Cholesterol Direct HDL Cholesterol 31 L Urine pH Urine WBC (Auto) Urine Creatinine Urine Total Protein Vancomycin Trough Rheumatoid Factor Complement C4 Miscellaneous Test Crossmatch 09/04/16 09/04/16 09/04/16 11:34 17:46 23:29 WBC RBC Hgb Hct MCV MCH MCHC RDW Plt Count Lymph % (Auto) [place] % (Auto) Lymph # [place] # Baso # Seg Neutrophils % Seg Neuts % (Manual) Lymphocytes % (Manual) Monocytes % (Manual) Eosinophils % (Manual) Basophils % (Manual) Nucleated RBC % Seg Neutrophils # Seg Neutrophils # Man Lymphocytes # (Manual) Monocytes # (Manual) Eosinophils # (Manual) PT INR Fibrinogen dRVVT Confirm Interp Factor V Activity POC ABG pH POC ABG pCO2 POC ABG pO2 Sodium Potassium Chloride Carbon Dioxide BUN Creatinine Glucose POC Glucose 165 H 210 H 139 H Lactic Acid Calcium Phosphorus Magnesium Direct Bilirubin AST ALT Alkaline Phosphatase Troponin T C-Reactive Protein Total Protein Albumin Prealbumin Triglycerides Cholesterol LDL Cholesterol Direct HDL Cholesterol Urine pH Urine WBC (Auto) Urine Creatinine Urine Total Protein Vancomycin Trough Rheumatoid Factor Complement C4 Miscellaneous Test Crossmatch 09/05/16 09/05/16 09/05/16 04:05 04:05 05:38 WBC RBC Hgb Hct MCV 76 L D MCH 23 L MCHC RDW 17.8 H Plt Count Lymph % (Auto) [place] % (Auto) Lymph # [place] # Baso # Seg Neutrophils % Seg Neuts % (Manual) Lymphocytes % (Manual) Monocytes % (Manual) Eosinophils % (Manual) Basophils % (Manual) Nucleated RBC % Seg Neutrophils # Seg Neutrophils # Man Lymphocytes # (Manual) Monocytes # (Manual) Eosinophils # (Manual) PT INR Fibrinogen dRVVT Confirm Interp Factor V Activity POC ABG pH POC ABG pCO2 POC ABG pO2 Sodium 134 L Potassium Chloride Carbon Dioxide 18 L BUN Creatinine 1.8 H Glucose 192 H POC Glucose 175 H Lactic Acid Calcium Phosphorus Magnesium Direct Bilirubin AST ALT Alkaline Phosphatase Troponin T C-Reactive Protein Total Protein Albumin Prealbumin Triglycerides Cholesterol LDL Cholesterol Direct HDL Cholesterol Urine pH Urine WBC (Auto) Urine Creatinine Urine Total Protein Vancomycin Trough Rheumatoid Factor Complement C4 Miscellaneous Test Crossmatch 09/05/16 09/05/1617 11:38 17:48 23:22 WBC RBC Hgb Hct MCV MCH MCHC RDW Plt Count Lymph % (Auto) [place] % (Auto) Lymph # [place] # Baso # Seg Neutrophils % Seg Neuts % (Manual) Lymphocytes % (Manual) Monocytes % (Manual) Eosinophils % (Manual) Basophils % (Manual) Nucleated RBC % Seg Neutrophils # Seg Neutrophils # Man Lymphocytes # (Manual) Monocytes # (Manual) Eosinophils # (Manual) PT INR Fibrinogen dRVVT Confirm Interp Factor V Activity POC ABG pH POC ABG pCO2 POC ABG pO2 Sodium Potassium Chloride Carbon Dioxide BUN Creatinine Glucose POC Glucose 164 H 186 H 195 H Lactic Acid Calcium Phosphorus Magnesium Direct Bilirubin AST ALT Alkaline Phosphatase Troponin T C-Reactive Protein Total Protein Albumin Prealbumin Triglycerides Cholesterol LDL Cholesterol Direct HDL Cholesterol Urine pH Urine WBC (Auto) Urine Creatinine Urine Total Protein Vancomycin Trough Rheumatoid Factor Complement C4 Miscellaneous Test Crossmatch 09/06/16 09/06/16 09/06/16 04:12 05:59 07:32 WBC RBC Hgb Hct MCV MCH MCHC RDW Plt Count Lymph % (Auto) [place] % (Auto) Lymph # [place] # Baso # Seg Neutrophils % Seg Neuts % (Manual) Lymphocytes % (Manual) Monocytes % (Manual) Eosinophils % (Manual) Basophils % (Manual) Nucleated RBC % Seg Neutrophils # Seg Neutrophils # Man Lymphocytes # (Manual) Monocytes # (Manual) Eosinophils # (Manual) PT INR Fibrinogen dRVVT Confirm Interp Factor V Activity POC ABG pH 7.514 H POC ABG pCO2 29.1 L POC ABG pO2 72 L Sodium 133 L Potassium 3.4 L Chloride 94.9 L Carbon Dioxide 19 L BUN 30 H Creatinine 2.1 H Glucose 139 H POC Glucose 146 H Lactic Acid Calcium Phosphorus Magnesium Direct Bilirubin AST ALT Alkaline Phosphatase Troponin T C-Reactive Protein Total Protein Albumin Prealbumin Triglycerides Cholesterol LDL Cholesterol Direct HDL Cholesterol Urine pH Urine WBC (Auto) Urine Creatinine Urine Total Protein Vancomycin Trough Rheumatoid Factor Complement C4 Miscellaneous Test Crossmatch 09/06/16 09/06/16 09/06/16 11:57 17:58 19:02 WBC RBC Hgb Hct MCV MCH MCHC RDW Plt Count Lymph % (Auto) [place] % (Auto) Lymph # [place] # Baso # Seg Neutrophils % Seg Neuts % (Manual) Lymphocytes % (Manual) Monocytes % (Manual) Eosinophils % (Manual) Basophils % (Manual) Nucleated RBC % Seg Neutrophils # Seg Neutrophils # Man Lymphocytes # (Manual) Monocytes # (Manual) Eosinophils # (Manual) PT INR Fibrinogen dRVVT Confirm Interp Factor V Activity POC ABG pH 7.465 H POC ABG pCO2 32.0 L POC ABG pO2 Sodium Potassium Chloride Carbon Dioxide BUN Creatinine Glucose POC Glucose 165 H 160 H Lactic Acid Calcium Phosphorus Magnesium Direct Bilirubin AST ALT Alkaline Phosphatase Troponin T C-Reactive Protein Total Protein Albumin Prealbumin Triglycerides Cholesterol LDL Cholesterol Direct HDL Cholesterol Urine pH Urine WBC (Auto) Urine Creatinine Urine Total Protein Vancomycin Trough Rheumatoid Factor Complement C4 Miscellaneous Test Crossmatch 09/06/16 09/07/16 09/07/16 23:45 02:47 02:47 WBC RBC Hgb Hct MCV MCH MCHC RDW Plt Count Lymph % (Auto) [place] % (Auto) Lymph # [place] # Baso # Seg Neutrophils % Seg Neuts % (Manual) Lymphocytes % (Manual) Monocytes % (Manual) Eosinophils % (Manual) Basophils % (Manual) Nucleated RBC % Seg Neutrophils # Seg Neutrophils # Man Lymphocytes # (Manual) Monocytes # (Manual) Eosinophils # (Manual) PT INR Fibrinogen dRVVT Confirm Interp Factor V Activity POC ABG pH POC ABG pCO2 POC ABG pO2 Sodium Potassium Chloride Carbon Dioxide BUN Creatinine Glucose POC Glucose 204 H Lactic Acid Calcium Phosphorus Magnesium Direct Bilirubin AST ALT Alkaline Phosphatase Troponin T C-Reactive Protein Total Protein Albumin Prealbumin Triglycerides Cholesterol LDL Cholesterol Direct HDL Cholesterol Urine pH Urine WBC (Auto) 68.0 H Urine Creatinine 106.1 H Urine Total Protein Vancomycin Trough Rheumatoid Factor Complement C4 Miscellaneous Test Crossmatch 09/07/16 09/07/16 09/07/16 04:50 06:19 06:39 WBC RBC Hgb Hct MCV MCH MCHC RDW Plt Count Lymph % (Auto) [place] % (Auto) Lymph # [place] # Baso # Seg Neutrophils % Seg Neuts % (Manual) Lymphocytes % (Manual) Monocytes % (Manual) Eosinophils % (Manual) Basophils % (Manual) Nucleated RBC % Seg Neutrophils # Seg Neutrophils # Man Lymphocytes # (Manual) Monocytes # (Manual) Eosinophils # (Manual) PT INR Fibrinogen dRVVT Confirm Interp Factor V Activity POC ABG pH 7.457 H POC ABG pCO2 32.1 L POC ABG pO2 76 L Sodium 132 L Potassium Chloride 94.7 L Carbon Dioxide BUN 53 H Creatinine 2.9 H Glucose 151 H POC Glucose 149 H Lactic Acid Calcium Phosphorus Magnesium Direct Bilirubin AST ALT Alkaline Phosphatase Troponin T C-Reactive Protein Total Protein Albumin Prealbumin Triglycerides Cholesterol LDL Cholesterol Direct HDL Cholesterol Urine pH Urine WBC (Auto) Urine Creatinine Urine Total Protein Vancomycin Trough Rheumatoid Factor Complement C4 Miscellaneous Test Crossmatch 09/07/16 09/07/16 09/07/16 09:20 11:43 11:43 WBC 19.4 H RBC Hgb 8.3 L Hct 26.4 L D MCV 72 L D MCH 22 L MCHC RDW 17.9 H Plt Count Lymph % (Auto) 8.5 L [place] % (Auto) Lymph # [place] # 1.0 H Baso # Seg Neutrophils % 85.8 H Seg Neuts % (Manual) Lymphocytes % (Manual) Monocytes % (Manual) Eosinophils % (Manual) Basophils % (Manual) Nucleated RBC % Seg Neutrophils # 16.6 H Seg Neutrophils # Man Lymphocytes # (Manual) Monocytes # (Manual) Eosinophils # (Manual) PT INR Fibrinogen dRVVT Confirm Interp Factor V Activity POC ABG pH POC ABG pCO2 POC ABG pO2 Sodium 134 L Potassium Chloride 97.2 L Carbon Dioxide 20 L BUN 58 H Creatinine 2.9 H Glucose 147 H POC Glucose Lactic Acid Calcium Phosphorus 2.40 L Magnesium 2.40 H Direct Bilirubin AST ALT Alkaline Phosphatase Troponin T C-Reactive Protein Total Protein 5.8 L Albumin 2.2 L Prealbumin Triglycerides Cholesterol LDL Cholesterol Direct HDL Cholesterol Urine pH Urine WBC (Auto) Urine Creatinine Urine Total Protein Vancomycin Trough Rheumatoid Factor Complement C4 58 H Miscellaneous Test Crossmatch 09/07/16 09/07/16 09/07/16 11:50 16:00 17:31 WBC RBC Hgb Hct MCV MCH MCHC RDW Plt Count Lymph % (Auto) [place] % (Auto) Lymph # [place] # Baso # Seg Neutrophils % Seg Neuts % (Manual) Lymphocytes % (Manual) Monocytes % (Manual) Eosinophils % (Manual) Basophils % (Manual) Nucleated RBC % Seg Neutrophils # Seg Neutrophils # Man Lymphocytes # (Manual) Monocytes # (Manual) Eosinophils # (Manual) PT INR Fibrinogen dRVVT Confirm Interp Factor V Activity POC ABG pH POC ABG pCO2 POC ABG pO2 158 H Sodium Potassium Chloride Carbon Dioxide BUN Creatinine Glucose POC Glucose 175 H Lactic Acid Calcium Phosphorus Magnesium Direct Bilirubin AST ALT Alkaline Phosphatase Troponin T C-Reactive Protein Total Protein Albumin Prealbumin Triglycerides Cholesterol LDL Cholesterol Direct HDL Cholesterol Urine pH Urine WBC (Auto) Urine Creatinine 66.3 H Urine Total Protein Vancomycin Trough Rheumatoid Factor Complement C4 Miscellaneous Test Crossmatch 09/07/16 09/08/16 09/08/16 23:50 05:46 06:18 WBC 17.8 H RBC 3.58 L Hgb 8.1 L Hct 25.5 L MCV 71 L MCH 23 L MCHC RDW 18.4 H Plt Count Lymph % (Auto) [place] % (Auto) Lymph # [place] # Baso # Seg Neutrophils % Seg Neuts % (Manual) 92.0 H Lymphocytes % (Manual) 6.0 L Monocytes % (Manual) Eosinophils % (Manual) Basophils % (Manual) Nucleated RBC % Seg Neutrophils # Seg Neutrophils # Man 16.4 H Lymphocytes # (Manual) 1.1 L Monocytes # (Manual) Eosinophils # (Manual) PT INR Fibrinogen dRVVT Confirm Interp Factor V Activity POC ABG pH POC ABG pCO2 34.3 L POC ABG pO2 71 L Sodium Potassium Chloride Carbon Dioxide BUN Creatinine Glucose POC Glucose 216 H Lactic Acid Calcium Phosphorus Magnesium Direct Bilirubin AST ALT Alkaline Phosphatase Troponin T C-Reactive Protein Total Protein Albumin Prealbumin Triglycerides Cholesterol LDL Cholesterol Direct HDL Cholesterol Urine pH Urine WBC (Auto) Urine Creatinine Urine Total Protein Vancomycin Trough Rheumatoid Factor Complement C4 Miscellaneous Test Crossmatch 09/08/16 09/08/16 09/08/16 06:18 06:51 10:55 WBC RBC Hgb Hct MCV MCH MCHC RDW Plt Count Lymph % (Auto) [place] % (Auto) Lymph # [place] # Baso # Seg Neutrophils % Seg Neuts % (Manual) Lymphocytes % (Manual) Monocytes % (Manual) Eosinophils % (Manual) Basophils % (Manual) Nucleated RBC % Seg Neutrophils # Seg Neutrophils # Man Lymphocytes # (Manual) Monocytes # (Manual) Eosinophils # (Manual) PT INR Fibrinogen dRVVT Confirm Interp Factor V Activity POC ABG pH POC ABG pCO2 POC ABG pO2 Sodium 133 L Potassium Chloride 96.9 L Carbon Dioxide 20 L BUN 63 H Creatinine 2.7 H Glucose 195 H POC Glucose 204 H 169 H Lactic Acid Calcium Phosphorus Magnesium Direct Bilirubin AST ALT Alkaline Phosphatase Troponin T C-Reactive Protein Total Protein Albumin Prealbumin Triglycerides Cholesterol LDL Cholesterol Direct HDL Cholesterol Urine pH Urine WBC (Auto) Urine Creatinine Urine Total Protein Vancomycin Trough Rheumatoid Factor Complement C4 Miscellaneous Test Crossmatch 09/08/16 09/08/16 09/08/16 11:48 11:48 11:48 WBC RBC Hgb Hct MCV MCH MCHC RDW Plt Count Lymph % (Auto) [place] % (Auto) Lymph # [place] # Baso # Seg Neutrophils % Seg Neuts % (Manual) Lymphocytes % (Manual) Monocytes % (Manual) Eosinophils % (Manual) Basophils % (Manual) Nucleated RBC % Seg Neutrophils # Seg Neutrophils # Man Lymphocytes # (Manual) Monocytes # (Manual) Eosinophils # (Manual) PT INR Fibrinogen 750 H dRVVT Confirm Interp Factor V Activity POC ABG pH POC ABG pCO2 POC ABG pO2 Sodium Potassium Chloride Carbon Dioxide BUN Creatinine Glucose POC Glucose Lactic Acid Calcium Phosphorus Magnesium Direct Bilirubin AST ALT Alkaline Phosphatase Troponin T C-Reactive Protein 15.70 H Total Protein Albumin Prealbumin Triglycerides Cholesterol LDL Cholesterol Direct HDL Cholesterol Urine pH Urine WBC (Auto) Urine Creatinine Urine Total Protein Vancomycin Trough Rheumatoid Factor 24 H Complement C4 Miscellaneous Test Crossmatch 09/08/16 09/08/16 09/09/16 15:35 18:25 00:24 WBC RBC Hgb Hct MCV MCH MCHC RDW Plt Count Lymph % (Auto) [place] % (Auto) Lymph # [place] # Baso # Seg Neutrophils % Seg Neuts % (Manual) Lymphocytes % (Manual) Monocytes % (Manual) Eosinophils % (Manual) Basophils % (Manual) Nucleated RBC % Seg Neutrophils # Seg Neutrophils # Man Lymphocytes # (Manual) Monocytes # (Manual) Eosinophils # (Manual) PT INR Fibrinogen dRVVT Confirm Interp Factor V Activity 182 H POC ABG pH POC ABG pCO2 POC ABG pO2 Sodium Potassium Chloride Carbon Dioxide BUN Creatinine Glucose POC Glucose 184 H 216 H Lactic Acid Calcium Phosphorus Magnesium Direct Bilirubin AST ALT Alkaline Phosphatase Troponin T C-Reactive Protein Total Protein Albumin Prealbumin Triglycerides Cholesterol LDL Cholesterol Direct HDL Cholesterol Urine pH Urine WBC (Auto) Urine Creatinine Urine Total Protein Vancomycin Trough Rheumatoid Factor Complement C4 Miscellaneous Test Crossmatch 09/09/16 09/09/16 09/09/16 03:00 03:00 04:04 WBC 27.9 H RBC Hgb 8.7 L Hct 28.1 L MCV 72 L MCH 22 L MCHC RDW 18.4 H Plt Count 485 H Lymph % (Auto) [place] % (Auto) Lymph # [place] # Baso # Seg Neutrophils % Seg Neuts % (Manual) 77.0 H Lymphocytes % (Manual) 9.0 L Monocytes % (Manual) Eosinophils % (Manual) Basophils % (Manual) Nucleated RBC % Seg Neutrophils # Seg Neutrophils # Man 21.5 H Lymphocytes # (Manual) Monocytes # (Manual) 2.0 H Eosinophils # (Manual) PT INR Fibrinogen dRVVT Confirm Interp Factor V Activity POC ABG pH POC ABG pCO2 POC ABG pO2 121 H Sodium 135 L Potassium Chloride 96.3 L Carbon Dioxide 21 L BUN 83 H Creatinine 3.0 H Glucose 135 H POC Glucose Lactic Acid Calcium Phosphorus Magnesium Direct Bilirubin AST ALT Alkaline Phosphatase Troponin T C-Reactive Protein Total Protein Albumin Prealbumin Triglycerides Cholesterol LDL Cholesterol Direct HDL Cholesterol Urine pH Urine WBC (Auto) Urine Creatinine Urine Total Protein Vancomycin Trough Rheumatoid Factor Complement C4 Miscellaneous Test Crossmatch 09/09/16 09/09/16 09/09/16 05:41 11:55 14:13 WBC RBC Hgb Hct MCV MCH MCHC RDW Plt Count Lymph % (Auto) [place] % (Auto) Lymph # [place] # Baso # Seg Neutrophils % Seg Neuts % (Manual) Lymphocytes % (Manual) Monocytes % (Manual) Eosinophils % (Manual) Basophils % (Manual) Nucleated RBC % Seg Neutrophils # Seg Neutrophils # Man Lymphocytes # (Manual) Monocytes # (Manual) Eosinophils # (Manual) PT INR Fibrinogen dRVVT Confirm Interp Factor V Activity POC ABG pH POC ABG pCO2 POC ABG pO2 Sodium Potassium Chloride Carbon Dioxide BUN Creatinine Glucose POC Glucose 155 H 186 H Lactic Acid Calcium Phosphorus Magnesium Direct Bilirubin AST ALT Alkaline Phosphatase Troponin T C-Reactive Protein Total Protein Albumin Prealbumin Triglycerides Cholesterol LDL Cholesterol Direct HDL Cholesterol Urine pH Urine WBC (Auto) 25.0 H Urine Creatinine Urine Total Protein Vancomycin Trough Rheumatoid Factor Complement C4 Miscellaneous Test Crossmatch 09/09/16 09/09/16 09/10/16 17:33 23:13 05:09 WBC RBC Hgb Hct MCV MCH MCHC RDW Plt Count Lymph % (Auto) [place] % (Auto) Lymph # [place] # Baso # Seg Neutrophils % Seg Neuts % (Manual) Lymphocytes % (Manual) Monocytes % (Manual) Eosinophils % (Manual) Basophils % (Manual) Nucleated RBC % Seg Neutrophils # Seg Neutrophils # Man Lymphocytes # (Manual) Monocytes # (Manual) Eosinophils # (Manual) PT INR Fibrinogen dRVVT Confirm Interp Factor V Activity POC ABG pH POC ABG pCO2 POC ABG pO2 74 L Sodium Potassium Chloride Carbon Dioxide BUN Creatinine Glucose POC Glucose 211 H 215 H Lactic Acid Calcium Phosphorus Magnesium Direct Bilirubin AST ALT Alkaline Phosphatase Troponin T C-Reactive Protein Total Protein Albumin Prealbumin Triglycerides Cholesterol LDL Cholesterol Direct HDL Cholesterol Urine pH Urine WBC (Auto) Urine Creatinine Urine Total Protein Vancomycin Trough Rheumatoid Factor Complement C4 Miscellaneous Test Crossmatch 09/10/16 09/10/16 09/10/16 05:17 05:17 11:31 WBC 15.8 H RBC 3.25 L Hgb 7.3 L Hct 22.9 L MCV 71 L MCH 23 L MCHC RDW 18.4 H Plt Count Lymph % (Auto) [place] % (Auto) Lymph # [place] # Baso # Seg Neutrophils % Seg Neuts % (Manual) 91.0 H Lymphocytes % (Manual) 4.0 L Monocytes % (Manual) Eosinophils % (Manual) Basophils % (Manual) Nucleated RBC % Seg Neutrophils # Seg Neutrophils # Man 14.4 H Lymphocytes # (Manual) 0.6 L Monocytes # (Manual) Eosinophils # (Manual) PT INR Fibrinogen dRVVT Confirm Interp Factor V Activity POC ABG pH POC ABG pCO2 POC ABG pO2 Sodium Potassium Chloride Carbon Dioxide 21 L BUN 93 H Creatinine 2.9 H Glucose 146 H POC Glucose 188 H Lactic Acid Calcium 8.1 L Phosphorus Magnesium Direct Bilirubin AST ALT Alkaline Phosphatase Troponin T C-Reactive Protein Total Protein Albumin Prealbumin Triglycerides Cholesterol LDL Cholesterol Direct HDL Cholesterol Urine pH Urine WBC (Auto) Urine Creatinine Urine Total Protein Vancomycin Trough Rheumatoid Factor Complement C4 Miscellaneous Test Crossmatch 09/10/16 09/10/16 09/10/16 13:17 17:20 23:32 WBC RBC Hgb Hct MCV MCH MCHC RDW Plt Count Lymph % (Auto) [place] % (Auto) Lymph # [place] # Baso # Seg Neutrophils % Seg Neuts % (Manual) Lymphocytes % (Manual) Monocytes % (Manual) Eosinophils % (Manual) Basophils % (Manual) Nucleated RBC % Seg Neutrophils # Seg Neutrophils # Man Lymphocytes # (Manual) Monocytes # (Manual) Eosinophils # (Manual) PT INR Fibrinogen dRVVT Confirm Interp Factor V Activity POC ABG pH POC ABG pCO2 POC ABG pO2 Sodium Potassium Chloride Carbon Dioxide BUN Creatinine Glucose POC Glucose 199 H 186 H Lactic Acid Calcium Phosphorus Magnesium Direct Bilirubin AST ALT Alkaline Phosphatase Troponin T C-Reactive Protein Total Protein Albumin Prealbumin Triglycerides Cholesterol LDL Cholesterol Direct HDL Cholesterol Urine pH Urine WBC (Auto) Urine Creatinine Urine Total Protein Vancomycin Trough Rheumatoid Factor Complement C4 Miscellaneous Test Crossmatch See Detail 09/11/16 09/11/16 09/11/16 05:10 05:10 05:17 WBC 28.4 H RBC Hgb 9.2 L Hct 29.3 L D MCV 73 L MCH 23 L MCHC RDW 18.9 H Plt Count 452 H Lymph % (Auto) [place] % (Auto) Lymph # [place] # Baso # Seg Neutrophils % Seg Neuts % (Manual) 89.5 H Lymphocytes % (Manual) 2.0 L Monocytes % (Manual) Eosinophils % (Manual) Basophils % (Manual) Nucleated RBC % Seg Neutrophils # Seg Neutrophils # Man 25.4 H Lymphocytes # (Manual) 0.6 L Monocytes # (Manual) 1.3 H Eosinophils # (Manual) PT INR Fibrinogen dRVVT Confirm Interp Factor V Activity POC ABG pH POC ABG pCO2 POC ABG pO2 Sodium 136 L Potassium Chloride Carbon Dioxide 18 L BUN 107 H Creatinine 2.6 H Glucose 187 H POC Glucose 230 H Lactic Acid Calcium 8.3 L Phosphorus Magnesium Direct Bilirubin AST ALT Alkaline Phosphatase Troponin T C-Reactive Protein Total Protein Albumin Prealbumin Triglycerides Cholesterol LDL Cholesterol Direct HDL Cholesterol Urine pH Urine WBC (Auto) Urine Creatinine Urine Total Protein Vancomycin Trough Rheumatoid Factor Complement C4 Miscellaneous Test Crossmatch 09/11/16 09/11/16 09/11/16 05:55 12:02 17:32 WBC RBC Hgb Hct MCV MCH MCHC RDW Plt Count Lymph % (Auto) [place] % (Auto) Lymph # [place] # Baso # Seg Neutrophils % Seg Neuts % (Manual) Lymphocytes % (Manual) Monocytes % (Manual) Eosinophils % (Manual) Basophils % (Manual) Nucleated RBC % Seg Neutrophils # Seg Neutrophils # Man Lymphocytes # (Manual) Monocytes # (Manual) Eosinophils # (Manual) PT INR Fibrinogen dRVVT Confirm Interp Factor V Activity POC ABG pH POC ABG pCO2 33.8 L POC ABG pO2 Sodium Potassium Chloride Carbon Dioxide BUN Creatinine Glucose POC Glucose 191 H 239 H Lactic Acid Calcium Phosphorus Magnesium Direct Bilirubin AST ALT Alkaline Phosphatase Troponin T C-Reactive Protein Total Protein Albumin Prealbumin Triglycerides Cholesterol LDL Cholesterol Direct HDL Cholesterol Urine pH Urine WBC (Auto) Urine Creatinine Urine Total Protein Vancomycin Trough Rheumatoid Factor Complement C4 Miscellaneous Test Crossmatch 09/11/16 09/12/16 09/12/16 23:52 05:09 05:32 WBC RBC Hgb Hct MCV MCH MCHC RDW Plt Count Lymph % (Auto) [place] % (Auto) Lymph # [place] # Baso # Seg Neutrophils % Seg Neuts % (Manual) Lymphocytes % (Manual) Monocytes % (Manual) Eosinophils % (Manual) Basophils % (Manual) Nucleated RBC % Seg Neutrophils # Seg Neutrophils # Man Lymphocytes # (Manual) Monocytes # (Manual) Eosinophils # (Manual) PT INR Fibrinogen dRVVT Confirm Interp Factor V Activity POC ABG pH POC ABG pCO2 34.6 L POC ABG pO2 Sodium Potassium Chloride Carbon Dioxide BUN Creatinine Glucose POC Glucose 265 H 184 H Lactic Acid Calcium Phosphorus Magnesium Direct Bilirubin AST ALT Alkaline Phosphatase Troponin T C-Reactive Protein Total Protein Albumin Prealbumin Triglycerides Cholesterol LDL Cholesterol Direct HDL Cholesterol Urine pH Urine WBC (Auto) Urine Creatinine Urine Total Protein Vancomycin Trough Rheumatoid Factor Complement C4 Miscellaneous Test Crossmatch 09/12/16 09/12/16 09/12/16 06:45 06:45 07:22 WBC 31.7 H RBC 3.54 L Hgb 8.3 L Hct 25.9 L MCV 73 L MCH 23 L MCHC RDW 18.9 H Plt Count Lymph % (Auto) [place] % (Auto) Lymph # [place] # Baso # Seg Neutrophils % Seg Neuts % (Manual) 88.5 H Lymphocytes % (Manual) 4.5 L Monocytes % (Manual) Eosinophils % (Manual) Basophils % (Manual) Nucleated RBC % Seg Neutrophils # Seg Neutrophils # Man 28.1 H Lymphocytes # (Manual) Monocytes # (Manual) 1.0 H Eosinophils # (Manual) PT INR Fibrinogen dRVVT Confirm Interp Factor V Activity POC ABG pH POC ABG pCO2 POC ABG pO2 Sodium Potassium Chloride Carbon Dioxide 20 L BUN 115 H Creatinine 2.7 H Glucose 165 H POC Glucose Lactic Acid Calcium 8.0 L Phosphorus Magnesium Direct Bilirubin AST ALT Alkaline Phosphatase Troponin T C-Reactive Protein Total Protein Albumin Prealbumin Triglycerides 217 H Cholesterol LDL Cholesterol Direct HDL Cholesterol Urine pH Urine WBC (Auto) Urine Creatinine Urine Total Protein Vancomycin Trough Rheumatoid Factor Complement C4 Miscellaneous Test Crossmatch 09/12/16 09/12/16 09/12/16 07:22 09:59 12:21 WBC RBC Hgb Hct MCV MCH MCHC RDW Plt Count Lymph % (Auto) [place] % (Auto) Lymph # [place] # Baso # Seg Neutrophils % Seg Neuts % (Manual) Lymphocytes % (Manual) Monocytes % (Manual) Eosinophils % (Manual) Basophils % (Manual) Nucleated RBC % Seg Neutrophils # Seg Neutrophils # Man Lymphocytes # (Manual) Monocytes # (Manual) Eosinophils # (Manual) PT INR Fibrinogen dRVVT Confirm Interp Positive H Factor V Activity POC ABG pH POC ABG pCO2 POC ABG pO2 Sodium Potassium Chloride Carbon Dioxide BUN Creatinine Glucose POC Glucose 224 H Lactic Acid Calcium Phosphorus Magnesium Direct Bilirubin AST ALT Alkaline Phosphatase Troponin T C-Reactive Protein 1.70 H Total Protein Albumin Prealbumin Triglycerides Cholesterol LDL Cholesterol Direct HDL Cholesterol Urine pH Urine WBC (Auto) Urine Creatinine Urine Total Protein Vancomycin Trough Rheumatoid Factor Complement C4 Miscellaneous Test Crossmatch 09/12/16 09/12/16 09/13/16 16:51 23:28 04:00 WBC 45.0 H* RBC Hgb 9.4 L Hct MCV 75 L MCH 23 L MCHC RDW 19.0 H Plt Count 470 H Lymph % (Auto) [place] % (Auto) Lymph # [place] # Baso # Seg Neutrophils % Seg Neuts % (Manual) 89.0 H Lymphocytes % (Manual) 5.0 L Monocytes % (Manual) Eosinophils % (Manual) Basophils % (Manual) Nucleated RBC % Seg Neutrophils # Seg Neutrophils # Man 40.1 H Lymphocytes # (Manual) Monocytes # (Manual) Eosinophils # (Manual) PT INR Fibrinogen dRVVT Confirm Interp Factor V Activity POC ABG pH POC ABG pCO2 POC ABG pO2 Sodium Potassium Chloride Carbon Dioxide BUN Creatinine Glucose POC Glucose 169 H 150 H Lactic Acid Calcium Phosphorus Magnesium Direct Bilirubin AST ALT Alkaline Phosphatase Troponin T C-Reactive Protein Total Protein Albumin Prealbumin Triglycerides Cholesterol LDL Cholesterol Direct HDL Cholesterol Urine pH Urine WBC (Auto) Urine Creatinine Urine Total Protein Vancomycin Trough Rheumatoid Factor Complement C4 Miscellaneous Test Crossmatch 09/13/16 09/13/16 09/13/16 04:00 11:26 17:31 WBC RBC Hgb Hct MCV MCH MCHC RDW Plt Count Lymph % (Auto) [place] % (Auto) Lymph # [place] # Baso # Seg Neutrophils % Seg Neuts % (Manual) Lymphocytes % (Manual) Monocytes % (Manual) Eosinophils % (Manual) Basophils % (Manual) Nucleated RBC % Seg Neutrophils # Seg Neutrophils # Man Lymphocytes # (Manual) Monocytes # (Manual) Eosinophils # (Manual) PT INR Fibrinogen dRVVT Confirm Interp Factor V Activity POC ABG pH POC ABG pCO2 POC ABG pO2 Sodium Potassium Chloride Carbon Dioxide 20 L BUN 116 H Creatinine 3.0 H Glucose 172 H POC Glucose 140 H 183 H Lactic Acid Calcium Phosphorus Magnesium Direct Bilirubin AST ALT Alkaline Phosphatase Troponin T C-Reactive Protein Total Protein 6.2 L Albumin 2.9 L Prealbumin Triglycerides Cholesterol LDL Cholesterol Direct HDL Cholesterol Urine pH Urine WBC (Auto) Urine Creatinine Urine Total Protein Vancomycin Trough Rheumatoid Factor Complement C4 Miscellaneous Test Crossmatch 09/13/16 09/14/16 09/14/16 23:23 04:06 04:07 WBC 29.4 H RBC Hgb 8.9 L Hct 27.3 L MCV 75 L MCH 24 L MCHC RDW 19.1 H Plt Count Lymph % (Auto) [place] % (Auto) Lymph # [place] # Baso # Seg Neutrophils % Seg Neuts % (Manual) 84.0 H Lymphocytes % (Manual) 6.0 L Monocytes % (Manual) 9.0 H Eosinophils % (Manual) Basophils % (Manual) Nucleated RBC % Seg Neutrophils # Seg Neutrophils # Man 24.7 H Lymphocytes # (Manual) Monocytes # (Manual) 2.6 H Eosinophils # (Manual) PT INR Fibrinogen dRVVT Confirm Interp Factor V Activity POC ABG pH 7.342 L POC ABG pCO2 POC ABG pO2 116 H Sodium Potassium Chloride Carbon Dioxide BUN Creatinine Glucose POC Glucose 154 H Lactic Acid Calcium Phosphorus Magnesium Direct Bilirubin AST ALT Alkaline Phosphatase Troponin T C-Reactive Protein Total Protein Albumin Prealbumin Triglycerides Cholesterol LDL Cholesterol Direct HDL Cholesterol Urine pH Urine WBC (Auto) Urine Creatinine Urine Total Protein Vancomycin Trough Rheumatoid Factor Complement C4 Miscellaneous Test Crossmatch 09/14/16 09/14/16 09/14/16 04:07 05:29 12:19 WBC RBC Hgb Hct MCV MCH MCHC RDW Plt Count Lymph % (Auto) [place] % (Auto) Lymph # [place] # Baso # Seg Neutrophils % Seg Neuts % (Manual) Lymphocytes % (Manual) Monocytes % (Manual) Eosinophils % (Manual) Basophils % (Manual) Nucleated RBC % Seg Neutrophils # Seg Neutrophils # Man Lymphocytes # (Manual) Monocytes # (Manual) Eosinophils # (Manual) PT INR Fibrinogen dRVVT Confirm Interp Factor V Activity POC ABG pH POC ABG pCO2 POC ABG pO2 Sodium 136 L Potassium Chloride Carbon Dioxide 18 L BUN 121 H Creatinine 2.8 H Glucose 214 H POC Glucose 239 H 181 H Lactic Acid Calcium Phosphorus Magnesium Direct Bilirubin AST ALT Alkaline Phosphatase Troponin T C-Reactive Protein Total Protein Albumin Prealbumin Triglycerides Cholesterol LDL Cholesterol Direct HDL Cholesterol Urine pH Urine WBC (Auto) Urine Creatinine Urine Total Protein Vancomycin Trough Rheumatoid Factor Complement C4 Miscellaneous Test Crossmatch 09/14/16 09/14/16 09/15/16 18:12 23:37 05:00 WBC 26.1 H RBC 3.05 L Hgb 7.2 L Hct 22.9 L MCV 75 L MCH 24 L MCHC RDW 19.0 H Plt Count Lymph % (Auto) [place] % (Auto) Lymph # [place] # Baso # Seg Neutrophils % Seg Neuts % (Manual) Lymphocytes % (Manual) Monocytes % (Manual) Eosinophils % (Manual) Basophils % (Manual) Nucleated RBC % Seg Neutrophils # Seg Neutrophils # Man Lymphocytes # (Manual) Monocytes # (Manual) Eosinophils # (Manual) PT INR Fibrinogen dRVVT Confirm Interp Factor V Activity POC ABG pH POC ABG pCO2 POC ABG pO2 Sodium Potassium Chloride Carbon Dioxide BUN Creatinine Glucose POC Glucose 266 H 154 H Lactic Acid Calcium Phosphorus Magnesium Direct Bilirubin AST ALT Alkaline Phosphatase Troponin T C-Reactive Protein Total Protein Albumin Prealbumin Triglycerides Cholesterol LDL Cholesterol Direct HDL Cholesterol Urine pH Urine WBC (Auto) Urine Creatinine Urine Total Protein Vancomycin Trough Rheumatoid Factor Complement C4 Miscellaneous Test Crossmatch 09/15/16 09/15/16 09/15/16 05:00 05:17 12:45 WBC RBC Hgb Hct MCV MCH MCHC RDW Plt Count Lymph % (Auto) [place] % (Auto) Lymph # [place] # Baso # Seg Neutrophils % Seg Neuts % (Manual) Lymphocytes % (Manual) Monocytes % (Manual) Eosinophils % (Manual) Basophils % (Manual) Nucleated RBC % Seg Neutrophils # Seg Neutrophils # Man Lymphocytes # (Manual) Monocytes # (Manual) Eosinophils # (Manual) PT INR Fibrinogen dRVVT Confirm Interp Factor V Activity POC ABG pH POC ABG pCO2 POC ABG pO2 Sodium Potassium 5.2 H Chloride Carbon Dioxide 18 L BUN 139 H Creatinine 3.7 H Glucose 227 H POC Glucose 226 H 244 H Lactic Acid Calcium 8.3 L Phosphorus Magnesium Direct Bilirubin AST ALT Alkaline Phosphatase Troponin T C-Reactive Protein Total Protein Albumin Prealbumin Triglycerides Cholesterol LDL Cholesterol Direct HDL Cholesterol Urine pH Urine WBC (Auto) Urine Creatinine Urine Total Protein Vancomycin Trough Rheumatoid Factor Complement C4 Miscellaneous Test Crossmatch 09/15/16 09/15/16 09/15/16 14:32 17:33 23:35 WBC RBC Hgb Hct MCV MCH MCHC RDW Plt Count Lymph % (Auto) [place] % (Auto) Lymph # [place] # Baso # Seg Neutrophils % Seg Neuts % (Manual) Lymphocytes % (Manual) Monocytes % (Manual) Eosinophils % (Manual) Basophils % (Manual) Nucleated RBC % Seg Neutrophils # Seg Neutrophils # Man Lymphocytes # (Manual) Monocytes # (Manual) Eosinophils # (Manual) PT INR Fibrinogen dRVVT Confirm Interp Factor V Activity POC ABG pH POC ABG pCO2 27.7 L POC ABG pO2 120 H Sodium Potassium Chloride Carbon Dioxide BUN Creatinine Glucose POC Glucose 232 H 167 H Lactic Acid Calcium Phosphorus Magnesium Direct Bilirubin AST ALT Alkaline Phosphatase Troponin T C-Reactive Protein Total Protein Albumin Prealbumin Triglycerides Cholesterol LDL Cholesterol Direct HDL Cholesterol Urine pH Urine WBC (Auto) Urine Creatinine Urine Total Protein Vancomycin Trough Rheumatoid Factor Complement C4 Miscellaneous Test Crossmatch 09/16/16 09/16/16 09/16/16 03:58 10:27 10:27 WBC 19.0 H RBC 2.77 L Hgb 6.5 L Hct 20.9 L MCV 76 L MCH 23 L MCHC RDW 19.3 H Plt Count Lymph % (Auto) 11.0 L [place] % (Auto) Lymph # [place] # 1.1 H Baso # Seg Neutrophils % 82.5 H Seg Neuts % (Manual) Lymphocytes % (Manual) Monocytes % (Manual) Eosinophils % (Manual) Basophils % (Manual) Nucleated RBC % Seg Neutrophils # 15.7 H Seg Neutrophils # Man Lymphocytes # (Manual) Monocytes # (Manual) Eosinophils # (Manual) PT INR Fibrinogen dRVVT Confirm Interp Factor V Activity POC ABG pH POC ABG pCO2 POC ABG pO2 Sodium Potassium Chloride 109.3 H Carbon Dioxide 18 L BUN 139 H Creatinine 4.1 H Glucose 144 H POC Glucose 146 H Lactic Acid Calcium 8.1 L Phosphorus Magnesium Direct Bilirubin AST ALT Alkaline Phosphatase Troponin T C-Reactive Protein Total Protein Albumin Prealbumin Triglycerides Cholesterol LDL Cholesterol Direct HDL Cholesterol Urine pH Urine WBC (Auto) Urine Creatinine Urine Total Protein Vancomycin Trough Rheumatoid Factor Complement C4 Miscellaneous Test Crossmatch 09/16/16 09/16/16 09/16/16 12:04 12:10 13:55 WBC RBC Hgb Hct MCV MCH MCHC RDW Plt Count Lymph % (Auto) [place] % (Auto) Lymph # [place] # Baso # Seg Neutrophils % Seg Neuts % (Manual) Lymphocytes % (Manual) Monocytes % (Manual) Eosinophils % (Manual) Basophils % (Manual) Nucleated RBC % Seg Neutrophils # Seg Neutrophils # Man Lymphocytes # (Manual) Monocytes # (Manual) Eosinophils # (Manual) PT INR Fibrinogen dRVVT Confirm Interp Factor V Activity POC ABG pH POC ABG pCO2 32.9 L POC ABG pO2 Sodium Potassium Chloride Carbon Dioxide BUN Creatinine Glucose POC Glucose 185 H Lactic Acid Calcium Phosphorus Magnesium Direct Bilirubin AST ALT Alkaline Phosphatase Troponin T C-Reactive Protein Total Protein Albumin Prealbumin Triglycerides Cholesterol LDL Cholesterol Direct HDL Cholesterol Urine pH Urine WBC (Auto) Urine Creatinine Urine Total Protein Vancomycin Trough Rheumatoid Factor Complement C4 Miscellaneous Test Crossmatch See Detail 09/16/16 09/16/16 09/16/16 17:55 19:19 23:48 WBC RBC Hgb Hct MCV MCH MCHC RDW Plt Count Lymph % (Auto) [place] % (Auto) Lymph # [place] # Baso # Seg Neutrophils % Seg Neuts % (Manual) Lymphocytes % (Manual) Monocytes % (Manual) Eosinophils % (Manual) Basophils % (Manual) Nucleated RBC % Seg Neutrophils # Seg Neutrophils # Man Lymphocytes # (Manual) Monocytes # (Manual) Eosinophils # (Manual) PT INR Fibrinogen dRVVT Confirm Interp Factor V Activity POC ABG pH POC ABG pCO2 POC ABG pO2 Sodium Potassium Chloride Carbon Dioxide BUN Creatinine Glucose POC Glucose 222 H 107 H Lactic Acid Calcium Phosphorus Magnesium Direct Bilirubin AST ALT Alkaline Phosphatase Troponin T C-Reactive Protein Total Protein Albumin Prealbumin Triglycerides Cholesterol LDL Cholesterol Direct HDL Cholesterol Urine pH Urine WBC (Auto) Urine Creatinine 47.4 H Urine Total Protein 16 H Vancomycin Trough Rheumatoid Factor Complement C4 Miscellaneous Test Crossmatch 09/17/16 09/17/16 09/17/16 03:45 03:45 04:55 WBC 19.6 H RBC 3.41 L Hgb 8.5 L Hct 26.7 L MCV 78 L MCH 25 L MCHC RDW 19.9 H Plt Count Lymph % (Auto) 9.3 L [place] % (Auto) Lymph # [place] # 1.2 H Baso # Seg Neutrophils % 83.9 H Seg Neuts % (Manual) Lymphocytes % (Manual) Monocytes % (Manual) Eosinophils % (Manual) Basophils % (Manual) Nucleated RBC % Seg Neutrophils # 16.4 H Seg Neutrophils # Man Lymphocytes # (Manual) Monocytes # (Manual) Eosinophils # (Manual) PT INR Fibrinogen dRVVT Confirm Interp Factor V Activity POC ABG pH POC ABG pCO2 POC ABG pO2 Sodium 146 H Potassium 5.1 H Chloride 110.9 H Carbon Dioxide 16 L BUN 146 H Creatinine 4.0 H Glucose 108 H POC Glucose 133 H Lactic Acid Calcium Phosphorus Magnesium 3.00 H Direct Bilirubin AST ALT Alkaline Phosphatase Troponin T C-Reactive Protein Total Protein Albumin Prealbumin Triglycerides Cholesterol LDL Cholesterol Direct HDL Cholesterol Urine pH Urine WBC (Auto) Urine Creatinine Urine Total Protein Vancomycin Trough Rheumatoid Factor Complement C4 Miscellaneous Test Crossmatch 09/17/16 09/17/16 09/17/16 11:15 17:33 23:47 WBC RBC Hgb Hct MCV MCH MCHC RDW Plt Count Lymph % (Auto) [place] % (Auto) Lymph # [place] # Baso # Seg Neutrophils % Seg Neuts % (Manual) Lymphocytes % (Manual) Monocytes % (Manual) Eosinophils % (Manual) Basophils % (Manual) Nucleated RBC % Seg Neutrophils # Seg Neutrophils # Man Lymphocytes # (Manual) Monocytes # (Manual) Eosinophils # (Manual) PT INR Fibrinogen dRVVT Confirm Interp Factor V Activity POC ABG pH POC ABG pCO2 POC ABG pO2 Sodium Potassium Chloride Carbon Dioxide BUN Creatinine Glucose POC Glucose 176 H 246 H 148 H Lactic Acid Calcium Phosphorus Magnesium Direct Bilirubin AST ALT Alkaline Phosphatase Troponin T C-Reactive Protein Total Protein Albumin Prealbumin Triglycerides Cholesterol LDL Cholesterol Direct HDL Cholesterol Urine pH Urine WBC (Auto) Urine Creatinine Urine Total Protein Vancomycin Trough Rheumatoid Factor Complement C4 Miscellaneous Test Crossmatch 09/18/16 09/18/16 09/18/16 05:33 08:31 08:31 WBC 18.0 H RBC 3.17 L Hgb 9.0 L Hct 25.7 L MCV MCH MCHC 35 H RDW 20.4 H Plt Count Lymph % (Auto) [place] % (Auto) Lymph # [place] # Baso # Seg Neutrophils % Seg Neuts % (Manual) Lymphocytes % (Manual) Monocytes % (Manual) Eosinophils % (Manual) Basophils % (Manual) Nucleated RBC % Seg Neutrophils # Seg Neutrophils # Man Lymphocytes # (Manual) Monocytes # (Manual) Eosinophils # (Manual) PT INR Fibrinogen dRVVT Confirm Interp Factor V Activity POC ABG pH POC ABG pCO2 POC ABG pO2 Sodium Potassium Chloride Carbon Dioxide 15 L BUN 124 H Creatinine 3.8 H Glucose POC Glucose 120 H Lactic Acid Calcium 8.1 L Phosphorus Magnesium Direct Bilirubin AST ALT Alkaline Phosphatase Troponin T C-Reactive Protein Total Protein Albumin Prealbumin Triglycerides Cholesterol LDL Cholesterol Direct HDL Cholesterol Urine pH Urine WBC (Auto) Urine Creatinine Urine Total Protein Vancomycin Trough Rheumatoid Factor Complement C4 Miscellaneous Test Crossmatch 09/18/16 09/18/16 09/18/16 12:03 15:34 17:50 WBC RBC Hgb Hct MCV MCH MCHC RDW Plt Count Lymph % (Auto) [place] % (Auto) Lymph # [place] # Baso # Seg Neutrophils % Seg Neuts % (Manual) Lymphocytes % (Manual) Monocytes % (Manual) Eosinophils % (Manual) Basophils % (Manual) Nucleated RBC % Seg Neutrophils # Seg Neutrophils # Man Lymphocytes # (Manual) Monocytes # (Manual) Eosinophils # (Manual) PT INR Fibrinogen dRVVT Confirm Interp Factor V Activity POC ABG pH POC ABG pCO2 25.7 L POC ABG pO2 66 L Sodium Potassium Chloride Carbon Dioxide BUN Creatinine Glucose POC Glucose 156 H 220 H Lactic Acid Calcium Phosphorus Magnesium Direct Bilirubin AST ALT Alkaline Phosphatase Troponin T C-Reactive Protein Total Protein Albumin Prealbumin Triglycerides Cholesterol LDL Cholesterol Direct HDL Cholesterol Urine pH Urine WBC (Auto) Urine Creatinine Urine Total Protein Vancomycin Trough Rheumatoid Factor Complement C4 Miscellaneous Test Crossmatch 09/19/16 09/19/16 09/19/16 06:21 09:50 09:50 WBC 17.1 H RBC 3.49 L Hgb 9.0 L Hct 28.1 L MCV MCH 26 L MCHC RDW 20.8 H Plt Count Lymph % (Auto) 11.5 L [place] % (Auto) 7.5 H Lymph # [place] # 1.3 H Baso # Seg Neutrophils % 79.8 H Seg Neuts % (Manual) Lymphocytes % (Manual) Monocytes % (Manual) Eosinophils % (Manual) Basophils % (Manual) Nucleated RBC % Seg Neutrophils # 13.7 H Seg Neutrophils # Man Lymphocytes # (Manual) Monocytes # (Manual) Eosinophils # (Manual) PT INR Fibrinogen dRVVT Confirm Interp Factor V Activity POC ABG pH POC ABG pCO2 POC ABG pO2 Sodium Potassium Chloride 108.6 H Carbon Dioxide 15 L BUN 125 H Creatinine 4.1 H Glucose 124 H POC Glucose 119 H Lactic Acid Calcium Phosphorus Magnesium Direct Bilirubin AST ALT Alkaline Phosphatase Troponin T C-Reactive Protein Total Protein Albumin Prealbumin Triglycerides Cholesterol LDL Cholesterol Direct HDL Cholesterol Urine pH Urine WBC (Auto) Urine Creatinine Urine Total Protein Vancomycin Trough Rheumatoid Factor Complement C4 Miscellaneous Test Crossmatch 09/19/16 09/19/16 09/19/16 11:25 17:53 23:36 WBC RBC Hgb Hct MCV MCH MCHC RDW Plt Count Lymph % (Auto) [place] % (Auto) Lymph # [place] # Baso # Seg Neutrophils % Seg Neuts % (Manual) Lymphocytes % (Manual) Monocytes % (Manual) Eosinophils % (Manual) Basophils % (Manual) Nucleated RBC % Seg Neutrophils # Seg Neutrophils # Man Lymphocytes # (Manual) Monocytes # (Manual) Eosinophils # (Manual) PT INR Fibrinogen dRVVT Confirm Interp Factor V Activity POC ABG pH POC ABG pCO2 POC ABG pO2 Sodium Potassium Chloride Carbon Dioxide BUN Creatinine Glucose POC Glucose 160 H 245 H 121 H Lactic Acid Calcium Phosphorus Magnesium Direct Bilirubin AST ALT Alkaline Phosphatase Troponin T C-Reactive Protein Total Protein Albumin Prealbumin Triglycerides Cholesterol LDL Cholesterol Direct HDL Cholesterol Urine pH Urine WBC (Auto) Urine Creatinine Urine Total Protein Vancomycin Trough Rheumatoid Factor Complement C4 Miscellaneous Test Crossmatch 09/20/16 09/20/16 09/20/16 04:10 04:10 04:10 WBC 17.0 H RBC 3.21 L Hgb 8.2 L Hct 25.5 L MCV MCH 26 L MCHC RDW 20.9 H Plt Count Lymph % (Auto) [place] % (Auto) Lymph # [place] # Baso # Seg Neutrophils % Seg Neuts % (Manual) Lymphocytes % (Manual) Monocytes % (Manual) Eosinophils % (Manual) Basophils % (Manual) Nucleated RBC % Seg Neutrophils # Seg Neutrophils # Man Lymphocytes # (Manual) Monocytes # (Manual) Eosinophils # (Manual) PT INR Fibrinogen dRVVT Confirm Interp Factor V Activity POC ABG pH POC ABG pCO2 POC ABG pO2 Sodium Potassium Chloride 111.0 H Carbon Dioxide 16 L BUN 129 H Creatinine 3.7 H Glucose 115 H POC Glucose Lactic Acid Calcium 8.2 L Phosphorus Magnesium Direct Bilirubin AST ALT Alkaline Phosphatase Troponin T C-Reactive Protein Total Protein Albumin Prealbumin Triglycerides 243 H Cholesterol LDL Cholesterol Direct HDL Cholesterol Urine pH Urine WBC (Auto) Urine Creatinine Urine Total Protein Vancomycin Trough Rheumatoid Factor Complement C4 Miscellaneous Test Crossmatch 09/20/16 09/20/16 09/20/16 05:40 11:52 16:50 WBC RBC Hgb Hct MCV MCH MCHC RDW Plt Count Lymph % (Auto) [place] % (Auto) Lymph # [place] # Baso # Seg Neutrophils % Seg Neuts % (Manual) Lymphocytes % (Manual) Monocytes % (Manual) Eosinophils % (Manual) Basophils % (Manual) Nucleated RBC % Seg Neutrophils # Seg Neutrophils # Man Lymphocytes # (Manual) Monocytes # (Manual) Eosinophils # (Manual) PT INR Fibrinogen dRVVT Confirm Interp Factor V Activity POC ABG pH POC ABG pCO2 POC ABG pO2 Sodium Potassium Chloride Carbon Dioxide BUN Creatinine Glucose POC Glucose 131 H 183 H 236 H Lactic Acid Calcium Phosphorus Magnesium Direct Bilirubin AST ALT Alkaline Phosphatase Troponin T C-Reactive Protein Total Protein Albumin Prealbumin Triglycerides Cholesterol LDL Cholesterol Direct HDL Cholesterol Urine pH Urine WBC (Auto) Urine Creatinine Urine Total Protein Vancomycin Trough Rheumatoid Factor Complement C4 Miscellaneous Test Crossmatch 09/20/16 09/21/16 09/21/16 23:51 03:30 04:44 WBC RBC Hgb Hct MCV MCH MCHC RDW Plt Count Lymph % (Auto) [place] % (Auto) Lymph # [place] # Baso # Seg Neutrophils % Seg Neuts % (Manual) Lymphocytes % (Manual) Monocytes % (Manual) Eosinophils % (Manual) Basophils % (Manual) Nucleated RBC % Seg Neutrophils # Seg Neutrophils # Man Lymphocytes # (Manual) Monocytes # (Manual) Eosinophils # (Manual) PT INR Fibrinogen dRVVT Confirm Interp Factor V Activity POC ABG pH POC ABG pCO2 POC ABG pO2 Sodium Potassium Chloride Carbon Dioxide BUN Creatinine Glucose POC Glucose 114 H 141 H Lactic Acid Calcium Phosphorus Magnesium 2.70 H Direct Bilirubin AST ALT Alkaline Phosphatase Troponin T C-Reactive Protein Total Protein Albumin Prealbumin Triglycerides Cholesterol LDL Cholesterol Direct HDL Cholesterol Urine pH Urine WBC (Auto) Urine Creatinine Urine Total Protein Vancomycin Trough Rheumatoid Factor Complement C4 Miscellaneous Test Crossmatch 09/21/16 09/21/16 09/21/16 07:45 07:45 10:01 WBC 13.8 H RBC 2.94 L Hgb 7.5 L Hct 23.5 L MCV MCH 26 L MCHC RDW 21.2 H Plt Count Lymph % (Auto) 6.9 L [place] % (Auto) 9.4 H Lymph # 0.9 L [place] # 1.3 H Baso # Seg Neutrophils % 83.2 H Seg Neuts % (Manual) Lymphocytes % (Manual) Monocytes % (Manual) Eosinophils % (Manual) Basophils % (Manual) Nucleated RBC % Seg Neutrophils # 11.5 H Seg Neutrophils # Man Lymphocytes # (Manual) Monocytes # (Manual) Eosinophils # (Manual) PT INR Fibrinogen dRVVT Confirm Interp Factor V Activity POC ABG pH 7.308 L POC ABG pCO2 31.9 L POC ABG pO2 148 H Sodium 147 H Potassium Chloride 114.2 H Carbon Dioxide 15 L BUN 120 H Creatinine 3.9 H Glucose 156 H POC Glucose Lactic Acid Calcium 8.2 L Phosphorus Magnesium Direct Bilirubin AST ALT Alkaline Phosphatase Troponin T C-Reactive Protein Total Protein Albumin Prealbumin Triglycerides Cholesterol LDL Cholesterol Direct HDL Cholesterol Urine pH Urine WBC (Auto) Urine Creatinine Urine Total Protein Vancomycin Trough Rheumatoid Factor Complement C4 Miscellaneous Test Crossmatch 09/21/16 09/21/16 09/21/16 12:00 12:03 13:00 WBC RBC Hgb Hct MCV MCH MCHC RDW Plt Count Lymph % (Auto) [place] % (Auto) Lymph # [place] # Baso # Seg Neutrophils % Seg Neuts % (Manual) Lymphocytes % (Manual) Monocytes % (Manual) Eosinophils % (Manual) Basophils % (Manual) Nucleated RBC % Seg Neutrophils # Seg Neutrophils # Man Lymphocytes # (Manual) Monocytes # (Manual) Eosinophils # (Manual) PT INR Fibrinogen dRVVT Confirm Interp Factor V Activity POC ABG pH POC ABG pCO2 POC ABG pO2 Sodium Potassium Chloride Carbon Dioxide BUN Creatinine Glucose POC Glucose 163 H Lactic Acid Calcium Phosphorus Magnesium Direct Bilirubin AST ALT Alkaline Phosphatase Troponin T C-Reactive Protein Total Protein Albumin Prealbumin Triglycerides Cholesterol LDL Cholesterol Direct HDL Cholesterol Urine pH Urine WBC (Auto) Urine Creatinine 54.8 H Urine Total Protein Vancomycin Trough 2.3 L Rheumatoid Factor Complement C4 Miscellaneous Test Crossmatch 09/21/16 09/21/16 09/22/16 16:51 23:17 06:27 WBC RBC Hgb Hct MCV MCH MCHC RDW Plt Count Lymph % (Auto) [place] % (Auto) Lymph # [place] # Baso # Seg Neutrophils % Seg Neuts % (Manual) Lymphocytes % (Manual) Monocytes % (Manual) Eosinophils % (Manual) Basophils % (Manual) Nucleated RBC % Seg Neutrophils # Seg Neutrophils # Man Lymphocytes # (Manual) Monocytes # (Manual) Eosinophils # (Manual) PT INR Fibrinogen dRVVT Confirm Interp Factor V Activity POC ABG pH POC ABG pCO2 POC ABG pO2 Sodium Potassium Chloride Carbon Dioxide BUN Creatinine Glucose POC Glucose 206 H 114 H 115 H Lactic Acid Calcium Phosphorus Magnesium Direct Bilirubin AST ALT Alkaline Phosphatase Troponin T C-Reactive Protein Total Protein Albumin Prealbumin Triglycerides Cholesterol LDL Cholesterol Direct HDL Cholesterol Urine pH Urine WBC (Auto) Urine Creatinine Urine Total Protein Vancomycin Trough Rheumatoid Factor Complement C4 Miscellaneous Test Crossmatch 09/22/16 09/22/16 09/22/16 07:50 07:50 12:00 WBC 17.8 H RBC 3.04 L Hgb 8.0 L Hct 24.7 L MCV MCH 26 L MCHC RDW 21.6 H Plt Count Lymph % (Auto) [place] % (Auto) Lymph # [place] # Baso # Seg Neutrophils % Seg Neuts % (Manual) Lymphocytes % (Manual) Monocytes % (Manual) Eosinophils % (Manual) Basophils % (Manual) Nucleated RBC % Seg Neutrophils # Seg Neutrophils # Man Lymphocytes # (Manual) Monocytes # (Manual) Eosinophils # (Manual) PT INR Fibrinogen dRVVT Confirm Interp Factor V Activity POC ABG pH POC ABG pCO2 POC ABG pO2 Sodium 150 H Potassium Chloride 118.2 H Carbon Dioxide 14 L BUN 111 H Creatinine 3.7 H Glucose 157 H POC Glucose 183 H Lactic Acid Calcium Phosphorus Magnesium Direct Bilirubin AST ALT Alkaline Phosphatase Troponin T C-Reactive Protein Total Protein Albumin Prealbumin Triglycerides Cholesterol LDL Cholesterol Direct HDL Cholesterol Urine pH Urine WBC (Auto) Urine Creatinine Urine Total Protein Vancomycin Trough Rheumatoid Factor Complement C4 Miscellaneous Test Crossmatch 09/22/16 09/22/16 09/23/16 17:29 23:10 05:00 WBC 19.2 H RBC 3.13 L Hgb 8.0 L Hct 25.2 L MCV MCH 26 L MCHC RDW 22.1 H Plt Count Lymph % (Auto) [place] % (Auto) Lymph # [place] # Baso # Seg Neutrophils % Seg Neuts % (Manual) 92.0 H Lymphocytes % (Manual) 3.0 L Monocytes % (Manual) Eosinophils % (Manual) Basophils % (Manual) Nucleated RBC % Seg Neutrophils # Seg Neutrophils # Man 17.7 H Lymphocytes # (Manual) 0.6 L Monocytes # (Manual) Eosinophils # (Manual) PT INR Fibrinogen dRVVT Confirm Interp Factor V Activity POC ABG pH POC ABG pCO2 POC ABG pO2 Sodium Potassium Chloride Carbon Dioxide BUN Creatinine Glucose POC Glucose 197 H 169 H Lactic Acid Calcium Phosphorus Magnesium Direct Bilirubin AST ALT Alkaline Phosphatase Troponin T C-Reactive Protein Total Protein Albumin Prealbumin Triglycerides Cholesterol LDL Cholesterol Direct HDL Cholesterol Urine pH Urine WBC (Auto) Urine Creatinine Urine Total Protein Vancomycin Trough Rheumatoid Factor Complement C4 Miscellaneous Test Crossmatch 09/23/16 09/23/16 09/23/16 05:00 05:00 05:10 WBC RBC Hgb Hct MCV MCH MCHC RDW Plt Count Lymph % (Auto) [place] % (Auto) Lymph # [place] # Baso # Seg Neutrophils % Seg Neuts % (Manual) Lymphocytes % (Manual) Monocytes % (Manual) Eosinophils % (Manual) Basophils % (Manual) Nucleated RBC % Seg Neutrophils # Seg Neutrophils # Man Lymphocytes # (Manual) Monocytes # (Manual) Eosinophils # (Manual) PT INR Fibrinogen dRVVT Confirm Interp Factor V Activity POC ABG pH POC ABG pCO2 POC ABG pO2 Sodium 147 H Potassium 3.2 L Chloride 115.7 H Carbon Dioxide 13 L BUN 111 H Creatinine 3.8 H Glucose 194 H POC Glucose 188 H Lactic Acid Calcium 7.3 L D Phosphorus Magnesium Direct Bilirubin AST ALT Alkaline Phosphatase Troponin T C-Reactive Protein 3.20 H Total Protein Albumin Prealbumin Triglycerides Cholesterol LDL Cholesterol Direct HDL Cholesterol Urine pH Urine WBC (Auto) Urine Creatinine Urine Total Protein Vancomycin Trough Rheumatoid Factor Complement C4 Miscellaneous Test Crossmatch 09/23/16 09/23/16 09/23/16 11:37 12:29 18:01 WBC RBC Hgb Hct MCV MCH MCHC RDW Plt Count Lymph % (Auto) [place] % (Auto) Lymph # [place] # Baso # Seg Neutrophils % Seg Neuts % (Manual) Lymphocytes % (Manual) Monocytes % (Manual) Eosinophils % (Manual) Basophils % (Manual) Nucleated RBC % Seg Neutrophils # Seg Neutrophils # Man Lymphocytes # (Manual) Monocytes # (Manual) Eosinophils # (Manual) PT INR Fibrinogen dRVVT Confirm Interp Factor V Activity POC ABG pH POC ABG pCO2 18.9 L POC ABG pO2 143 H Sodium Potassium Chloride Carbon Dioxide BUN Creatinine Glucose POC Glucose 153 H 108 H Lactic Acid Calcium Phosphorus Magnesium Direct Bilirubin AST ALT Alkaline Phosphatase Troponin T C-Reactive Protein Total Protein Albumin Prealbumin Triglycerides Cholesterol LDL Cholesterol Direct HDL Cholesterol Urine pH Urine WBC (Auto) Urine Creatinine Urine Total Protein Vancomycin Trough Rheumatoid Factor Complement C4 Miscellaneous Test Crossmatch 09/23/16 09/23/16 09/24/16 21:19 23:43 05:16 WBC RBC Hgb Hct MCV MCH MCHC RDW Plt Count Lymph % (Auto) [place] % (Auto) Lymph # [place] # Baso # Seg Neutrophils % Seg Neuts % (Manual) Lymphocytes % (Manual) Monocytes % (Manual) Eosinophils % (Manual) Basophils % (Manual) Nucleated RBC % Seg Neutrophils # Seg Neutrophils # Man Lymphocytes # (Manual) Monocytes # (Manual) Eosinophils # (Manual) PT INR Fibrinogen dRVVT Confirm Interp Factor V Activity POC ABG pH POC ABG pCO2 17.3 L POC ABG pO2 112 H Sodium Potassium Chloride Carbon Dioxide BUN Creatinine Glucose POC Glucose 143 H 164 H Lactic Acid Calcium Phosphorus Magnesium Direct Bilirubin AST ALT Alkaline Phosphatase Troponin T C-Reactive Protein Total Protein Albumin Prealbumin Triglycerides Cholesterol LDL Cholesterol Direct HDL Cholesterol Urine pH Urine WBC (Auto) Urine Creatinine Urine Total Protein Vancomycin Trough Rheumatoid Factor Complement C4 Miscellaneous Test Crossmatch 09/24/16 09/24/16 09/24/16 05:21 11:58 17:06 WBC RBC Hgb Hct MCV MCH MCHC RDW Plt Count Lymph % (Auto) [place] % (Auto) Lymph # [place] # Baso # Seg Neutrophils % Seg Neuts % (Manual) Lymphocytes % (Manual) Monocytes % (Manual) Eosinophils % (Manual) Basophils % (Manual) Nucleated RBC % Seg Neutrophils # Seg Neutrophils # Man Lymphocytes # (Manual) Monocytes # (Manual) Eosinophils # (Manual) PT INR Fibrinogen dRVVT Confirm Interp Factor V Activity POC ABG pH POC ABG pCO2 POC ABG pO2 Sodium Potassium Chloride Carbon Dioxide 10 L BUN 103 H Creatinine 4.3 H Glucose 163 H POC Glucose 173 H 167 H Lactic Acid Calcium 6.5 L Phosphorus Magnesium Direct Bilirubin AST ALT Alkaline Phosphatase Troponin T C-Reactive Protein Total Protein Albumin Prealbumin Triglycerides Cholesterol LDL Cholesterol Direct HDL Cholesterol Urine pH Urine WBC (Auto) Urine Creatinine Urine Total Protein Vancomycin Trough Rheumatoid Factor Complement C4 Miscellaneous Test Crossmatch 09/24/16 09/24/16 09/24/16 20:15 21:02 23:48 WBC RBC Hgb Hct MCV MCH MCHC RDW Plt Count Lymph % (Auto) [place] % (Auto) Lymph # [place] # Baso # Seg Neutrophils % Seg Neuts % (Manual) Lymphocytes % (Manual) Monocytes % (Manual) Eosinophils % (Manual) Basophils % (Manual) Nucleated RBC % Seg Neutrophils # Seg Neutrophils # Man Lymphocytes # (Manual) Monocytes # (Manual) Eosinophils # (Manual) PT INR Fibrinogen dRVVT Confirm Interp Factor V Activity POC ABG pH 7.288 L POC ABG pCO2 30.2 L 21.5 L POC ABG pO2 32 L 39 L Sodium Potassium Chloride Carbon Dioxide BUN Creatinine Glucose POC Glucose 109 H Lactic Acid Calcium Phosphorus Magnesium Direct Bilirubin AST ALT Alkaline Phosphatase Troponin T C-Reactive Protein Total Protein Albumin Prealbumin Triglycerides Cholesterol LDL Cholesterol Direct HDL Cholesterol Urine pH Urine WBC (Auto) Urine Creatinine Urine Total Protein Vancomycin Trough Rheumatoid Factor Complement C4 Miscellaneous Test Crossmatch 09/25/16 09/25/16 09/25/16 04:20 04:20 04:20 WBC RBC 2.58 L Hgb 7.0 L Hct 21.0 L MCV MCH 27 L MCHC RDW 23.8 H Plt Count Lymph % (Auto) [place] % (Auto) Lymph # [place] # Baso # Seg Neutrophils % Seg Neuts % (Manual) Lymphocytes % (Manual) 12.0 L Monocytes % (Manual) Eosinophils % (Manual) 7.0 H Basophils % (Manual) 2.0 H Nucleated RBC % Seg Neutrophils # Seg Neutrophils # Man Lymphocytes # (Manual) 0.9 L Monocytes # (Manual) Eosinophils # (Manual) 0.5 H PT INR Fibrinogen dRVVT Confirm Interp Factor V Activity POC ABG pH POC ABG pCO2 POC ABG pO2 Sodium Potassium Chloride Carbon Dioxide 15 L BUN 72 H Creatinine 3.8 H Glucose POC Glucose Lactic Acid Calcium 6.0 L Phosphorus 4.60 H Magnesium 1.60 L Direct Bilirubin AST ALT Alkaline Phosphatase Troponin T C-Reactive Protein Total Protein Albumin Prealbumin Triglycerides Cholesterol LDL Cholesterol Direct HDL Cholesterol Urine pH Urine WBC (Auto) Urine Creatinine Urine Total Protein Vancomycin Trough Rheumatoid Factor Complement C4 Miscellaneous Test Crossmatch 09/25/16 09/25/16 09/25/16 04:57 08:02 10:30 WBC RBC Hgb Hct MCV MCH MCHC RDW Plt Count Lymph % (Auto) [place] % (Auto) Lymph # [place] # Baso # Seg Neutrophils % Seg Neuts % (Manual) Lymphocytes % (Manual) Monocytes % (Manual) Eosinophils % (Manual) Basophils % (Manual) Nucleated RBC % Seg Neutrophils # Seg Neutrophils # Man Lymphocytes # (Manual) Monocytes # (Manual) Eosinophils # (Manual) PT INR Fibrinogen dRVVT Confirm Interp Factor V Activity POC ABG pH POC ABG pCO2 24.7 L POC ABG pO2 152 H Sodium Potassium Chloride Carbon Dioxide BUN Creatinine Glucose POC Glucose 113 H Lactic Acid Calcium Phosphorus Magnesium Direct Bilirubin AST ALT Alkaline Phosphatase Troponin T C-Reactive Protein Total Protein Albumin Prealbumin Triglycerides Cholesterol LDL Cholesterol Direct HDL Cholesterol Urine pH Urine WBC (Auto) Urine Creatinine Urine Total Protein Vancomycin Trough Rheumatoid Factor Complement C4 Miscellaneous Test Crossmatch See Detail 09/25/16 09/25/16 09/25/16 12:05 17:44 23:47 WBC RBC Hgb Hct MCV MCH MCHC RDW Plt Count Lymph % (Auto) [place] % (Auto) Lymph # [place] # Baso # Seg Neutrophils % Seg Neuts % (Manual) Lymphocytes % (Manual) Monocytes % (Manual) Eosinophils % (Manual) Basophils % (Manual) Nucleated RBC % Seg Neutrophils # Seg Neutrophils # Man Lymphocytes # (Manual) Monocytes # (Manual) Eosinophils # (Manual) PT INR Fibrinogen dRVVT Confirm Interp Factor V Activity POC ABG pH POC ABG pCO2 POC ABG pO2 Sodium Potassium Chloride Carbon Dioxide BUN Creatinine Glucose POC Glucose 117 H 119 H 150 H Lactic Acid Calcium Phosphorus Magnesium Direct Bilirubin AST ALT Alkaline Phosphatase Troponin T C-Reactive Protein Total Protein Albumin Prealbumin Triglycerides Cholesterol LDL Cholesterol Direct HDL Cholesterol Urine pH Urine WBC (Auto) Urine Creatinine Urine Total Protein Vancomycin Trough Rheumatoid Factor Complement C4 Miscellaneous Test Crossmatch 09/26/16 09/26/16 09/26/16 04:25 04:25 04:25 WBC RBC 2.65 L Hgb 7.4 L Hct 21.6 L MCV MCH MCHC RDW 22.5 H Plt Count Lymph % (Auto) [place] % (Auto) Lymph # [place] # Baso # Seg Neutrophils % Seg Neuts % (Manual) Lymphocytes % (Manual) 6.0 L Monocytes % (Manual) Eosinophils % (Manual) 11.0 H Basophils % (Manual) Nucleated RBC % Seg Neutrophils # Seg Neutrophils # Man Lymphocytes # (Manual) 0.4 L Monocytes # (Manual) Eosinophils # (Manual) 0.6 H PT INR Fibrinogen dRVVT Confirm Interp Factor V Activity POC ABG pH POC ABG pCO2 POC ABG pO2 Sodium Potassium Chloride 97.0 L Carbon Dioxide 19 L BUN 43 H Creatinine 2.6 H Glucose 130 H POC Glucose Lactic Acid 4.40 H* Calcium 6.7 L Phosphorus Magnesium Direct Bilirubin AST ALT Alkaline Phosphatase Troponin T C-Reactive Protein Total Protein Albumin Prealbumin Triglycerides Cholesterol LDL Cholesterol Direct HDL Cholesterol Urine pH Urine WBC (Auto) Urine Creatinine Urine Total Protein Vancomycin Trough Rheumatoid Factor Complement C4 Miscellaneous Test Crossmatch 09/26/16 09/26/16 09/26/16 05:20 11:44 12:12 WBC RBC Hgb Hct MCV MCH MCHC RDW Plt Count Lymph % (Auto) [place] % (Auto) Lymph # [place] # Baso # Seg Neutrophils % Seg Neuts % (Manual) Lymphocytes % (Manual) Monocytes % (Manual) Eosinophils % (Manual) Basophils % (Manual) Nucleated RBC % Seg Neutrophils # Seg Neutrophils # Man Lymphocytes # (Manual) Monocytes # (Manual) Eosinophils # (Manual) PT INR Fibrinogen dRVVT Confirm Interp Factor V Activity POC ABG pH POC ABG pCO2 27.0 L POC ABG pO2 69 L Sodium Potassium Chloride Carbon Dioxide BUN Creatinine Glucose POC Glucose 121 H 128 H Lactic Acid Calcium Phosphorus Magnesium Direct Bilirubin AST ALT Alkaline Phosphatase Troponin T C-Reactive Protein Total Protein Albumin Prealbumin Triglycerides Cholesterol LDL Cholesterol Direct HDL Cholesterol Urine pH Urine WBC (Auto) Urine Creatinine Urine Total Protein Vancomycin Trough Rheumatoid Factor Complement C4 Miscellaneous Test Crossmatch 09/26/16 09/26/16 09/27/16 18:31 23:40 08:20 WBC RBC Hgb Hct MCV MCH MCHC RDW Plt Count Lymph % (Auto) [place] % (Auto) Lymph # [place] # Baso # Seg Neutrophils % Seg Neuts % (Manual) Lymphocytes % (Manual) Monocytes % (Manual) Eosinophils % (Manual) Basophils % (Manual) Nucleated RBC % Seg Neutrophils # Seg Neutrophils # Man Lymphocytes # (Manual) Monocytes # (Manual) Eosinophils # (Manual) PT INR Fibrinogen dRVVT Confirm Interp Factor V Activity POC ABG pH POC ABG pCO2 POC ABG pO2 Sodium Potassium Chloride Carbon Dioxide BUN Creatinine Glucose POC Glucose 120 H 133 H Lactic Acid 4.10 H* Calcium Phosphorus Magnesium Direct Bilirubin AST ALT Alkaline Phosphatase Troponin T C-Reactive Protein Total Protein Albumin Prealbumin Triglycerides Cholesterol LDL Cholesterol Direct HDL Cholesterol Urine pH Urine WBC (Auto) Urine Creatinine Urine Total Protein Vancomycin Trough Rheumatoid Factor Complement C4 Miscellaneous Test Crossmatch 09/27/16 09/27/16 09/27/16 11:23 15:00 18:15 WBC RBC Hgb Hct MCV MCH MCHC RDW Plt Count Lymph % (Auto) [place] % (Auto) Lymph # [place] # Baso # Seg Neutrophils % Seg Neuts % (Manual) Lymphocytes % (Manual) Monocytes % (Manual) Eosinophils % (Manual) Basophils % (Manual) Nucleated RBC % Seg Neutrophils # Seg Neutrophils # Man Lymphocytes # (Manual) Monocytes # (Manual) Eosinophils # (Manual) PT INR Fibrinogen dRVVT Confirm Interp Factor V Activity POC ABG pH 7.459 H POC ABG pCO2 27.1 L POC ABG pO2 140 H Sodium Potassium Chloride Carbon Dioxide BUN Creatinine Glucose POC Glucose 114 H 127 H Lactic Acid Calcium Phosphorus Magnesium Direct Bilirubin AST ALT Alkaline Phosphatase Troponin T C-Reactive Protein Total Protein Albumin Prealbumin Triglycerides Cholesterol LDL Cholesterol Direct HDL Cholesterol Urine pH Urine WBC (Auto) Urine Creatinine Urine Total Protein Vancomycin Trough Rheumatoid Factor Complement C4 Miscellaneous Test Crossmatch 09/27/16 09/27/16 09/28/16 Unknown Unknown 03:45 WBC RBC 2.49 L Hgb 6.8 L Hct 20.7 L MCV MCH 27 L MCHC RDW 22.1 H Plt Count Lymph % (Auto) [place] % (Auto) Lymph # [place] # Baso # Seg Neutrophils % Seg Neuts % (Manual) 32.0 L Lymphocytes % (Manual) 12.0 L Monocytes % (Manual) 11.0 H Eosinophils % (Manual) 10.0 H Basophils % (Manual) Nucleated RBC % Seg Neutrophils # Seg Neutrophils # Man Lymphocytes # (Manual) 1.0 L Monocytes # (Manual) 0.9 H Eosinophils # (Manual) 0.8 H PT INR Fibrinogen dRVVT Confirm Interp Factor V Activity POC ABG pH POC ABG pCO2 POC ABG pO2 Sodium 135 L 135 L Potassium 3.5 L Chloride 93.6 L 94.4 L Carbon Dioxide 17 L 21 L BUN 45 H 28 H Creatinine 3.3 H 2.5 H Glucose 106 H POC Glucose Lactic Acid Calcium 7.3 L 7.1 L Phosphorus Magnesium Direct Bilirubin AST ALT Alkaline Phosphatase Troponin T C-Reactive Protein Total Protein Albumin Prealbumin Triglycerides Cholesterol LDL Cholesterol Direct HDL Cholesterol Urine pH Urine WBC (Auto) Urine Creatinine Urine Total Protein Vancomycin Trough Rheumatoid Factor Complement C4 Miscellaneous Test Crossmatch 09/28/16 09/28/16 09/28/16 03:45 07:25 11:58 WBC 13.3 H RBC 3.01 L Hgb 8.4 L Hct 25.0 L MCV MCH MCHC RDW 20.5 H Plt Count 128 L Lymph % (Auto) [place] % (Auto) Lymph # [place] # Baso # Seg Neutrophils % Seg Neuts % (Manual) Lymphocytes % (Manual) 7.0 L Monocytes % (Manual) Eosinophils % (Manual) 6.0 H Basophils % (Manual) Nucleated RBC % Seg Neutrophils # Seg Neutrophils # Man Lymphocytes # (Manual) 0.9 L Monocytes # (Manual) Eosinophils # (Manual) 0.8 H PT INR Fibrinogen dRVVT Confirm Interp Factor V Activity POC ABG pH POC ABG pCO2 POC ABG pO2 Sodium Potassium Chloride Carbon Dioxide BUN Creatinine Glucose POC Glucose 121 H Lactic Acid 4.50 H* Calcium Phosphorus Magnesium Direct Bilirubin AST ALT Alkaline Phosphatase Troponin T C-Reactive Protein Total Protein Albumin Prealbumin Triglycerides Cholesterol LDL Cholesterol Direct HDL Cholesterol Urine pH Urine WBC (Auto) Urine Creatinine Urine Total Protein Vancomycin Trough Rheumatoid Factor Complement C4 Miscellaneous Test Crossmatch 09/29/16 09/29/16 09/29/16 06:45 06:45 06:45 WBC 14.9 H RBC 2.74 L Hgb 7.6 L Hct 23.2 L MCV MCH MCHC RDW 20.5 H Plt Count 81 L Lymph % (Auto) [place] % (Auto) Lymph # [place] # Baso # Seg Neutrophils % Seg Neuts % (Manual) 81.0 H Lymphocytes % (Manual) 4.0 L Monocytes % (Manual) Eosinophils % (Manual) Basophils % (Manual) Nucleated RBC % Seg Neutrophils # Seg Neutrophils # Man 12.1 H Lymphocytes # (Manual) 0.6 L Monocytes # (Manual) Eosinophils # (Manual) PT INR Fibrinogen dRVVT Confirm Interp Factor V Activity POC ABG pH POC ABG pCO2 POC ABG pO2 Sodium 133 L Potassium 3.4 L Chloride 92.5 L Carbon Dioxide 21 L BUN 33 H Creatinine 3.0 H Glucose POC Glucose Lactic Acid Calcium 6.6 L Phosphorus Magnesium 1.40 L Direct Bilirubin 0.9 H AST ALT Alkaline Phosphatase Troponin T C-Reactive Protein Total Protein 4.3 L Albumin 1.3 L Prealbumin Triglycerides Cholesterol LDL Cholesterol Direct HDL Cholesterol Urine pH Urine WBC (Auto) Urine Creatinine Urine Total Protein Vancomycin Trough Rheumatoid Factor Complement C4 Miscellaneous Test Crossmatch 09/29/16 09/29/16 09/30/16 17:52 20:12 00:07 WBC RBC Hgb Hct MCV MCH MCHC RDW Plt Count Lymph % (Auto) [place] % (Auto) Lymph # [place] # Baso # Seg Neutrophils % Seg Neuts % (Manual) Lymphocytes % (Manual) Monocytes % (Manual) Eosinophils % (Manual) Basophils % (Manual) Nucleated RBC % Seg Neutrophils # Seg Neutrophils # Man Lymphocytes # (Manual) Monocytes # (Manual) Eosinophils # (Manual) PT INR Fibrinogen dRVVT Confirm Interp Factor V Activity POC ABG pH POC ABG pCO2 POC ABG pO2 Sodium Potassium Chloride Carbon Dioxide BUN Creatinine Glucose POC Glucose 50 L 51 L Lactic Acid Calcium Phosphorus Magnesium Direct Bilirubin AST ALT Alkaline Phosphatase Troponin T 0.204 H* C-Reactive Protein Total Protein Albumin Prealbumin Triglycerides Cholesterol 31 L LDL Cholesterol Direct 4 L HDL Cholesterol 3 L Urine pH Urine WBC (Auto) Urine Creatinine Urine Total Protein Vancomycin Trough Rheumatoid Factor Complement C4 Miscellaneous Test Crossmatch 09/30/16 09/30/16 09/30/16 01:30 05:15 06:10 WBC RBC Hgb Hct MCV MCH MCHC RDW Plt Count Lymph % (Auto) [place] % (Auto) Lymph # [place] # Baso # Seg Neutrophils % Seg Neuts % (Manual) Lymphocytes % (Manual) Monocytes % (Manual) Eosinophils % (Manual) Basophils % (Manual) Nucleated RBC % Seg Neutrophils # Seg Neutrophils # Man Lymphocytes # (Manual) Monocytes # (Manual) Eosinophils # (Manual) PT INR Fibrinogen dRVVT Confirm Interp Factor V Activity POC ABG pH POC ABG pCO2 POC ABG pO2 Sodium 133 L Potassium 3.2 L Chloride 93.2 L Carbon Dioxide 19 L BUN 36 H Creatinine 3.2 H Glucose 104 H POC Glucose 167 H 146 H Lactic Acid Calcium 6.4 L Phosphorus Magnesium 1.60 L Direct Bilirubin AST ALT Alkaline Phosphatase Troponin T C-Reactive Protein Total Protein Albumin Prealbumin Triglycerides Cholesterol LDL Cholesterol Direct HDL Cholesterol Urine pH Urine WBC (Auto) Urine Creatinine Urine Total Protein Vancomycin Trough Rheumatoid Factor Complement C4 Miscellaneous Test Crossmatch 09/30/16 09/30/16 09/30/16 11:26 13:39 18:38 WBC RBC Hgb Hct MCV MCH MCHC RDW Plt Count Lymph % (Auto) [place] % (Auto) Lymph # [place] # Baso # Seg Neutrophils % Seg Neuts % (Manual) Lymphocytes % (Manual) Monocytes % (Manual) Eosinophils % (Manual) Basophils % (Manual) Nucleated RBC % Seg Neutrophils # Seg Neutrophils # Man Lymphocytes # (Manual) Monocytes # (Manual) Eosinophils # (Manual) PT INR Fibrinogen dRVVT Confirm Interp Factor V Activity POC ABG pH 7.479 H POC ABG pCO2 29.8 L POC ABG pO2 117 H Sodium Potassium Chloride Carbon Dioxide BUN Creatinine Glucose POC Glucose 140 H 122 H Lactic Acid Calcium Phosphorus Magnesium Direct Bilirubin AST ALT Alkaline Phosphatase Troponin T C-Reactive Protein Total Protein Albumin Prealbumin Triglycerides Cholesterol LDL Cholesterol Direct HDL Cholesterol Urine pH Urine WBC (Auto) Urine Creatinine Urine Total Protein Vancomycin Trough Rheumatoid Factor Complement C4 Miscellaneous Test Crossmatch 10/01/16 10/01/16 10/01/16 06:00 06:00 12:37 WBC 12.6 H RBC 2.75 L Hgb 7.3 L Hct 23.3 L MCV MCH 27 L MCHC RDW 20.6 H Plt Count 72 L Lymph % (Auto) [place] % (Auto) Lymph # [place] # Baso # Seg Neutrophils % Seg Neuts % (Manual) 31.0 L Lymphocytes % (Manual) 8.0 L Monocytes % (Manual) Eosinophils % (Manual) Basophils % (Manual) Nucleated RBC % 3.0 H Seg Neutrophils # Seg Neutrophils # Man Lymphocytes # (Manual) 1.0 L Monocytes # (Manual) Eosinophils # (Manual) PT INR Fibrinogen dRVVT Confirm Interp Factor V Activity POC ABG pH POC ABG pCO2 POC ABG pO2 Sodium 127 L Potassium Chloride 86.8 L Carbon Dioxide 20 L BUN 42 H Creatinine 3.5 H Glucose POC Glucose 65 L Lactic Acid Calcium 7.0 L Phosphorus Magnesium Direct Bilirubin AST ALT Alkaline Phosphatase Troponin T C-Reactive Protein Total Protein Albumin Prealbumin Triglycerides Cholesterol LDL Cholesterol Direct HDL Cholesterol Urine pH Urine WBC (Auto) Urine Creatinine Urine Total Protein Vancomycin Trough Rheumatoid Factor Complement C4 Miscellaneous Test Crossmatch 10/01/16 10/01/16 10/02/16 17:39 23:32 00:59 WBC RBC Hgb Hct MCV MCH MCHC RDW Plt Count Lymph % (Auto) [place] % (Auto) Lymph # [place] # Baso # Seg Neutrophils % Seg Neuts % (Manual) Lymphocytes % (Manual) Monocytes % (Manual) Eosinophils % (Manual) Basophils % (Manual) Nucleated RBC % Seg Neutrophils # Seg Neutrophils # Man Lymphocytes # (Manual) Monocytes # (Manual) Eosinophils # (Manual) PT INR Fibrinogen dRVVT Confirm Interp Factor V Activity POC ABG pH POC ABG pCO2 POC ABG pO2 Sodium Potassium Chloride Carbon Dioxide BUN Creatinine Glucose POC Glucose 107 H 52 L 145 H Lactic Acid Calcium Phosphorus Magnesium Direct Bilirubin AST ALT Alkaline Phosphatase Troponin T C-Reactive Protein Total Protein Albumin Prealbumin Triglycerides Cholesterol LDL Cholesterol Direct HDL Cholesterol Urine pH Urine WBC (Auto) Urine Creatinine Urine Total Protein Vancomycin Trough Rheumatoid Factor Complement C4 Miscellaneous Test Crossmatch 10/02/16 10/02/16 10/02/16 10:30 10:50 10:50 WBC 14.7 H RBC 2.76 L Hgb 7.4 L Hct 23.6 L MCV MCH 27 L MCHC RDW 20.2 H Plt Count 79 L Lymph % (Auto) [place] % (Auto) Lymph # [place] # Baso # Seg Neutrophils % Seg Neuts % (Manual) 86.0 H Lymphocytes % (Manual) 6.0 L Monocytes % (Manual) Eosinophils % (Manual) Basophils % (Manual) Nucleated RBC % Seg Neutrophils # Seg Neutrophils # Man 12.6 H Lymphocytes # (Manual) 0.9 L Monocytes # (Manual) Eosinophils # (Manual) PT INR Fibrinogen dRVVT Confirm Interp Factor V Activity POC ABG pH 7.486 H POC ABG pCO2 30.1 L POC ABG pO2 108 H Sodium 131 L Potassium 3.4 L Chloride 89.9 L Carbon Dioxide BUN 26 H Creatinine 2.6 H Glucose POC Glucose Lactic Acid Calcium 7.0 L Phosphorus Magnesium Direct Bilirubin AST ALT Alkaline Phosphatase Troponin T C-Reactive Protein Total Protein Albumin Prealbumin Triglycerides Cholesterol LDL Cholesterol Direct HDL Cholesterol Urine pH Urine WBC (Auto) Urine Creatinine Urine Total Protein Vancomycin Trough Rheumatoid Factor Complement C4 Miscellaneous Test Crossmatch 10/02/16 10/03/16 10/03/16 23:45 00:45 05:10 WBC 12.9 H RBC 2.77 L Hgb 7.6 L Hct 23.7 L MCV MCH 27 L MCHC RDW 19.7 H Plt Count 89 L Lymph % (Auto) [place] % (Auto) Lymph # [place] # Baso # Seg Neutrophils % Seg Neuts % (Manual) Lymphocytes % (Manual) 8.0 L Monocytes % (Manual) Eosinophils % (Manual) Basophils % (Manual) Nucleated RBC % Seg Neutrophils # 11.9 H Seg Neutrophils # Man Lymphocytes # (Manual) 1.0 L Monocytes # (Manual) Eosinophils # (Manual) PT INR Fibrinogen dRVVT Confirm Interp Factor V Activity POC ABG pH POC ABG pCO2 POC ABG pO2 Sodium Potassium Chloride Carbon Dioxide BUN Creatinine Glucose POC Glucose 55 L 199 H Lactic Acid Calcium Phosphorus Magnesium Direct Bilirubin AST ALT Alkaline Phosphatase Troponin T C-Reactive Protein Total Protein Albumin Prealbumin Triglycerides Cholesterol LDL Cholesterol Direct HDL Cholesterol Urine pH Urine WBC (Auto) Urine Creatinine Urine Total Protein Vancomycin Trough Rheumatoid Factor Complement C4 Miscellaneous Test Crossmatch 10/03/16 10/03/16 10/03/16 05:10 12:14 13:18 WBC RBC Hgb Hct MCV MCH MCHC RDW Plt Count Lymph % (Auto) [place] % (Auto) Lymph # [place] # Baso # Seg Neutrophils % Seg Neuts % (Manual) Lymphocytes % (Manual) Monocytes % (Manual) Eosinophils % (Manual) Basophils % (Manual) Nucleated RBC % Seg Neutrophils # Seg Neutrophils # Man Lymphocytes # (Manual) Monocytes # (Manual) Eosinophils # (Manual) PT INR Fibrinogen dRVVT Confirm Interp Factor V Activity POC ABG pH POC ABG pCO2 POC ABG pO2 Sodium 129 L Potassium 3.3 L Chloride 88.8 L Carbon Dioxide 20 L BUN 29 H Creatinine 2.8 H Glucose POC Glucose 68 L 127 H Lactic Acid Calcium 7.2 L Phosphorus Magnesium Direct Bilirubin AST ALT Alkaline Phosphatase Troponin T C-Reactive Protein Total Protein Albumin Prealbumin Triglycerides Cholesterol LDL Cholesterol Direct HDL Cholesterol Urine pH Urine WBC (Auto) Urine Creatinine Urine Total Protein Vancomycin Trough Rheumatoid Factor Complement C4 Miscellaneous Test Crossmatch 10/03/16 10/03/16 10/03/16 14:42 18:21 19:09 WBC RBC Hgb Hct MCV MCH MCHC RDW Plt Count Lymph % (Auto) [place] % (Auto) Lymph # [place] # Baso # Seg Neutrophils % Seg Neuts % (Manual) Lymphocytes % (Manual) Monocytes % (Manual) Eosinophils % (Manual) Basophils % (Manual) Nucleated RBC % Seg Neutrophils # Seg Neutrophils # Man Lymphocytes # (Manual) Monocytes # (Manual) Eosinophils # (Manual) PT INR Fibrinogen dRVVT Confirm Interp Factor V Activity POC ABG pH 7.499 H POC ABG pCO2 28.4 L POC ABG pO2 44 L Sodium Potassium Chloride Carbon Dioxide BUN Creatinine Glucose POC Glucose 64 L 205 H Lactic Acid Calcium Phosphorus Magnesium Direct Bilirubin AST ALT Alkaline Phosphatase Troponin T C-Reactive Protein Total Protein Albumin Prealbumin Triglycerides Cholesterol LDL Cholesterol Direct HDL Cholesterol Urine pH Urine WBC (Auto) Urine Creatinine Urine Total Protein Vancomycin Trough Rheumatoid Factor Complement C4 Miscellaneous Test Crossmatch 10/03/16 10/04/16 10/04/16 23:33 04:18 06:30 WBC RBC 2.54 L Hgb 7.1 L Hct 21.7 L MCV MCH MCHC RDW 19.5 H Plt Count 76 L Lymph % (Auto) [place] % (Auto) Lymph # [place] # Baso # Seg Neutrophils % Seg Neuts % (Manual) 88.0 H Lymphocytes % (Manual) 6.0 L Monocytes % (Manual) Eosinophils % (Manual) Basophils % (Manual) Nucleated RBC % Seg Neutrophils # Seg Neutrophils # Man 8.8 H Lymphocytes # (Manual) 0.6 L Monocytes # (Manual) Eosinophils # (Manual) PT INR Fibrinogen dRVVT Confirm Interp Factor V Activity POC ABG pH 7.461 H POC ABG pCO2 33.6 L POC ABG pO2 211 H Sodium Potassium Chloride Carbon Dioxide BUN Creatinine Glucose POC Glucose 136 H Lactic Acid Calcium Phosphorus Magnesium Direct Bilirubin AST ALT Alkaline Phosphatase Troponin T C-Reactive Protein Total Protein Albumin Prealbumin Triglycerides Cholesterol LDL Cholesterol Direct HDL Cholesterol Urine pH Urine WBC (Auto) Urine Creatinine Urine Total Protein Vancomycin Trough Rheumatoid Factor Complement C4 Miscellaneous Test Crossmatch 10/04/16 10/04/16 10/04/16 06:30 11:45 17:54 WBC RBC Hgb Hct MCV MCH MCHC RDW Plt Count Lymph % (Auto) [place] % (Auto) Lymph # [place] # Baso # Seg Neutrophils % Seg Neuts % (Manual) Lymphocytes % (Manual) Monocytes % (Manual) Eosinophils % (Manual) Basophils % (Manual) Nucleated RBC % Seg Neutrophils # Seg Neutrophils # Man Lymphocytes # (Manual) Monocytes # (Manual) Eosinophils # (Manual) PT INR Fibrinogen dRVVT Confirm Interp Factor V Activity POC ABG pH POC ABG pCO2 POC ABG pO2 Sodium 128 L Potassium Chloride 87.4 L Carbon Dioxide 20 L BUN 34 H Creatinine 2.9 H Glucose 127 H POC Glucose 158 H 160 H Lactic Acid Calcium 7.4 L Phosphorus Magnesium Direct Bilirubin AST ALT Alkaline Phosphatase Troponin T C-Reactive Protein Total Protein Albumin Prealbumin Triglycerides Cholesterol LDL Cholesterol Direct HDL Cholesterol Urine pH Urine WBC (Auto) Urine Creatinine Urine Total Protein Vancomycin Trough Rheumatoid Factor Complement C4 Miscellaneous Test Crossmatch 10/04/16 10/05/16 10/05/16 23:25 04:30 05:00 WBC RBC 2.64 L Hgb 7.5 L Hct 22.6 L MCV MCH MCHC RDW 19.3 H Plt Count 80 L Lymph % (Auto) [place] % (Auto) Lymph # [place] # Baso # Seg Neutrophils % Seg Neuts % (Manual) Lymphocytes % (Manual) 12.0 L Monocytes % (Manual) Eosinophils % (Manual) Basophils % (Manual) Nucleated RBC % Seg Neutrophils # Seg Neutrophils # Man Lymphocytes # (Manual) Monocytes # (Manual) Eosinophils # (Manual) PT INR Fibrinogen dRVVT Confirm Interp Factor V Activity POC ABG pH 7.475 H POC ABG pCO2 33.3 L POC ABG pO2 140 H Sodium Potassium Chloride Carbon Dioxide BUN Creatinine Glucose POC Glucose 141 H Lactic Acid Calcium Phosphorus Magnesium Direct Bilirubin AST ALT Alkaline Phosphatase Troponin T C-Reactive Protein Total Protein Albumin Prealbumin Triglycerides Cholesterol LDL Cholesterol Direct HDL Cholesterol Urine pH Urine WBC (Auto) Urine Creatinine Urine Total Protein Vancomycin Trough Rheumatoid Factor Complement C4 Miscellaneous Test Crossmatch 10/05/16 10/05/16 10/05/16 05:00 05:09 12:58 WBC RBC Hgb Hct MCV MCH MCHC RDW Plt Count Lymph % (Auto) [place] % (Auto) Lymph # [place] # Baso # Seg Neutrophils % Seg Neuts % (Manual) Lymphocytes % (Manual) Monocytes % (Manual) Eosinophils % (Manual) Basophils % (Manual) Nucleated RBC % Seg Neutrophils # Seg Neutrophils # Man Lymphocytes # (Manual) Monocytes # (Manual) Eosinophils # (Manual) PT INR Fibrinogen dRVVT Confirm Interp Factor V Activity POC ABG pH POC ABG pCO2 POC ABG pO2 Sodium 131 L Potassium Chloride 94.0 L Carbon Dioxide 20 L BUN 22 H Creatinine 2.0 H Glucose 123 H POC Glucose 166 H 179 H Lactic Acid Calcium 7.7 L Phosphorus 2.20 L D Magnesium Direct Bilirubin AST ALT Alkaline Phosphatase Troponin T C-Reactive Protein Total Protein Albumin Prealbumin Triglycerides Cholesterol LDL Cholesterol Direct HDL Cholesterol Urine pH Urine WBC (Auto) Urine Creatinine Urine Total Protein Vancomycin Trough Rheumatoid Factor Complement C4 Miscellaneous Test Crossmatch 10/05/16 10/05/16 10/05/16 15:50 18:53 23:12 WBC RBC Hgb Hct MCV MCH MCHC RDW Plt Count Lymph % (Auto) [place] % (Auto) Lymph # [place] # Baso # Seg Neutrophils % Seg Neuts % (Manual) Lymphocytes % (Manual) Monocytes % (Manual) Eosinophils % (Manual) Basophils % (Manual) Nucleated RBC % Seg Neutrophils # Seg Neutrophils # Man Lymphocytes # (Manual) Monocytes # (Manual) Eosinophils # (Manual) PT INR Fibrinogen dRVVT Confirm Interp Factor V Activity POC ABG pH POC ABG pCO2 POC ABG pO2 Sodium Potassium Chloride Carbon Dioxide BUN Creatinine Glucose POC Glucose 150 H 164 H Lactic Acid Calcium Phosphorus Magnesium Direct Bilirubin AST ALT Alkaline Phosphatase Troponin T C-Reactive Protein Total Protein Albumin Prealbumin Triglycerides Cholesterol LDL Cholesterol Direct HDL Cholesterol Urine pH Urine WBC (Auto) Urine Creatinine Urine Total Protein Vancomycin Trough Rheumatoid Factor Complement C4 Miscellaneous Test Crossmatch See Detail 10/06/16 10/06/16 10/06/16 03:50 03:50 04:53 WBC RBC 3.00 L Hgb 8.6 L Hct 25.8 L MCV MCH MCHC RDW 17.9 H Plt Count 65 L Lymph % (Auto) [place] % (Auto) Lymph # [place] # Baso # Seg Neutrophils % Seg Neuts % (Manual) 30.0 L Lymphocytes % (Manual) 5.0 L Monocytes % (Manual) Eosinophils % (Manual) Basophils % (Manual) Nucleated RBC % Seg Neutrophils # Seg Neutrophils # Man Lymphocytes # (Manual) 0.4 L Monocytes # (Manual) Eosinophils # (Manual) PT INR Fibrinogen dRVVT Confirm Interp Factor V Activity POC ABG pH 7.310 L POC ABG pCO2 49.0 H POC ABG pO2 Sodium 133 L Potassium Chloride 95.9 L Carbon Dioxide BUN 26 H Creatinine 2.0 H Glucose 116 H POC Glucose Lactic Acid Calcium 7.8 L Phosphorus Magnesium Direct Bilirubin AST ALT Alkaline Phosphatase Troponin T C-Reactive Protein Total Protein Albumin Prealbumin Triglycerides Cholesterol LDL Cholesterol Direct HDL Cholesterol Urine pH Urine WBC (Auto) Urine Creatinine Urine Total Protein Vancomycin Trough Rheumatoid Factor Complement C4 Miscellaneous Test Crossmatch 10/06/16 10/06/16 10/06/16 05:23 11:52 18:34 WBC RBC Hgb Hct MCV MCH MCHC RDW Plt Count Lymph % (Auto) [place] % (Auto) Lymph # [place] # Baso # Seg Neutrophils % Seg Neuts % (Manual) Lymphocytes % (Manual) Monocytes % (Manual) Eosinophils % (Manual) Basophils % (Manual) Nucleated RBC % Seg Neutrophils # Seg Neutrophils # Man Lymphocytes # (Manual) Monocytes # (Manual) Eosinophils # (Manual) PT INR Fibrinogen dRVVT Confirm Interp Factor V Activity POC ABG pH POC ABG pCO2 POC ABG pO2 Sodium Potassium Chloride Carbon Dioxide BUN Creatinine Glucose POC Glucose 126 H 116 H 129 H Lactic Acid Calcium Phosphorus Magnesium Direct Bilirubin AST ALT Alkaline Phosphatase Troponin T C-Reactive Protein Total Protein Albumin Prealbumin Triglycerides Cholesterol LDL Cholesterol Direct HDL Cholesterol Urine pH Urine WBC (Auto) Urine Creatinine Urine Total Protein Vancomycin Trough Rheumatoid Factor Complement C4 Miscellaneous Test Crossmatch 10/07/16 10/07/16 10/07/16 03:45 05:00 10:00 WBC 17.0 H RBC 2.68 L Hgb 7.3 L Hct 25.3 L MCV MCH 27 L MCHC 29 L RDW 19.6 H Plt Count 74 L Lymph % (Auto) [place] % (Auto) Lymph # [place] # Baso # Seg Neutrophils % Seg Neuts % (Manual) Lymphocytes % (Manual) 12.0 L Monocytes % (Manual) Eosinophils % (Manual) Basophils % (Manual) Nucleated RBC % 4.0 H Seg Neutrophils # Seg Neutrophils # Man 10.7 H Lymphocytes # (Manual) Monocytes # (Manual) Eosinophils # (Manual) PT INR Fibrinogen dRVVT Confirm Interp Factor V Activity POC ABG pH POC ABG pCO2 POC ABG pO2 Sodium 130 L Potassium 3.2 L Chloride 93.9 L Carbon Dioxide 20 L BUN 44 H Creatinine 2.7 H Glucose 129 H POC Glucose Lactic Acid Calcium 7.4 L Phosphorus Magnesium Direct Bilirubin AST ALT 6 L Alkaline Phosphatase 195 H Troponin T C-Reactive Protein Total Protein 4.9 L Albumin 1.0 L Prealbumin Triglycerides Cholesterol LDL Cholesterol Direct HDL Cholesterol Urine pH Urine WBC (Auto) Urine Creatinine Urine Total Protein Vancomycin Trough Rheumatoid Factor Complement C4 Miscellaneous Test Flexitest 1 H Crossmatch 10/07/16 10/07/16 10/07/16 10:00 11:24 18:10 WBC RBC Hgb Hct MCV MCH MCHC RDW Plt Count Lymph % (Auto) [place] % (Auto) Lymph # [place] # Baso # Seg Neutrophils % Seg Neuts % (Manual) Lymphocytes % (Manual) Monocytes % (Manual) Eosinophils % (Manual) Basophils % (Manual) Nucleated RBC % Seg Neutrophils # Seg Neutrophils # Man Lymphocytes # (Manual) Monocytes # (Manual) Eosinophils # (Manual) PT INR Fibrinogen dRVVT Confirm Interp Factor V Activity POC ABG pH POC ABG pCO2 POC ABG pO2 Sodium Potassium Chloride Carbon Dioxide BUN Creatinine Glucose POC Glucose 116 H 130 H Lactic Acid Calcium Phosphorus Magnesium Direct Bilirubin AST ALT Alkaline Phosphatase Troponin T C-Reactive Protein 19.40 H Total Protein Albumin Prealbumin Triglycerides Cholesterol LDL Cholesterol Direct HDL Cholesterol Urine pH Urine WBC (Auto) Urine Creatinine Urine Total Protein Vancomycin Trough Rheumatoid Factor Complement C4 Miscellaneous Test Crossmatch 10/07/16 10/08/16 10/08/16 18:30 00:00 04:00 WBC RBC Hgb Hct MCV MCH MCHC RDW Plt Count Lymph % (Auto) [place] % (Auto) Lymph # [place] # Baso # Seg Neutrophils % Seg Neuts % (Manual) Lymphocytes % (Manual) Monocytes % (Manual) Eosinophils % (Manual) Basophils % (Manual) Nucleated RBC % Seg Neutrophils # Seg Neutrophils # Man Lymphocytes # (Manual) Monocytes # (Manual) Eosinophils # (Manual) PT INR Fibrinogen dRVVT Confirm Interp Factor V Activity POC ABG pH POC ABG pCO2 POC ABG pO2 Sodium 132 L Potassium 3.3 L Chloride 93.6 L Carbon Dioxide 17 L BUN 59 H Creatinine 2.7 H Glucose 121 H POC Glucose 122 H Lactic Acid Calcium 7.6 L Phosphorus Magnesium Direct Bilirubin AST ALT Alkaline Phosphatase Troponin T C-Reactive Protein Total Protein Albumin Prealbumin Triglycerides Cholesterol LDL Cholesterol Direct HDL Cholesterol Urine pH Urine WBC (Auto) > 182.0 H Urine Creatinine Urine Total Protein Vancomycin Trough Rheumatoid Factor Complement C4 Miscellaneous Test Crossmatch 10/08/16 10/08/16 10/08/16 04:30 05:30 11:51 WBC RBC 5.15 H Hgb 14.4 H D Hct 44.5 H D MCV MCH MCHC RDW 19.5 H Plt Count 56 L Lymph % (Auto) [place] % (Auto) Lymph # [place] # Baso # Seg Neutrophils % Seg Neuts % (Manual) 24.0 L Lymphocytes % (Manual) 8.0 L Monocytes % (Manual) Eosinophils % (Manual) Basophils % (Manual) Nucleated RBC % 9.0 H Seg Neutrophils # Seg Neutrophils # Man Lymphocytes # (Manual) 0.7 L Monocytes # (Manual) Eosinophils # (Manual) PT INR Fibrinogen dRVVT Confirm Interp Factor V Activity POC ABG pH POC ABG pCO2 POC ABG pO2 Sodium Potassium Chloride Carbon Dioxide BUN Creatinine Glucose POC Glucose 125 H 150 H Lactic Acid Calcium Phosphorus Magnesium Direct Bilirubin AST ALT Alkaline Phosphatase Troponin T C-Reactive Protein Total Protein Albumin Prealbumin Triglycerides Cholesterol LDL Cholesterol Direct HDL Cholesterol Urine pH Urine WBC (Auto) Urine Creatinine Urine Total Protein Vancomycin Trough Rheumatoid Factor Complement C4 Miscellaneous Test Crossmatch 10/08/16 10/08/16 10/08/16 12:49 17:07 19:30 WBC RBC Hgb 7.1 L D Hct 22.4 L D MCV MCH MCHC RDW Plt Count Lymph % (Auto) [place] % (Auto) Lymph # [place] # Baso # Seg Neutrophils % Seg Neuts % (Manual) Lymphocytes % (Manual) Monocytes % (Manual) Eosinophils % (Manual) Basophils % (Manual) Nucleated RBC % Seg Neutrophils # Seg Neutrophils # Man Lymphocytes # (Manual) Monocytes # (Manual) Eosinophils # (Manual) PT INR Fibrinogen dRVVT Confirm Interp Factor V Activity POC ABG pH POC ABG pCO2 28.2 L POC ABG pO2 111 H Sodium Potassium Chloride Carbon Dioxide BUN Creatinine Glucose POC Glucose 145 H Lactic Acid Calcium Phosphorus Magnesium Direct Bilirubin AST ALT Alkaline Phosphatase Troponin T C-Reactive Protein Total Protein Albumin Prealbumin Triglycerides Cholesterol LDL Cholesterol Direct HDL Cholesterol Urine pH Urine WBC (Auto) Urine Creatinine Urine Total Protein Vancomycin Trough Rheumatoid Factor Complement C4 Miscellaneous Test Crossmatch 10/08/16 10/09/16 10/09/16 19:30 03:45 03:45 WBC 12.6 H RBC 2.36 L Hgb 6.7 L Hct 21.1 L MCV MCH MCHC RDW 19.5 H Plt Count 75 L Lymph % (Auto) [place] % (Auto) Lymph # [place] # Baso # Seg Neutrophils % Seg Neuts % (Manual) Lymphocytes % (Manual) Monocytes % (Manual) 10.0 H Eosinophils % (Manual) Basophils % (Manual) Nucleated RBC % 3.0 H Seg Neutrophils # Seg Neutrophils # Man Lymphocytes # (Manual) Monocytes # (Manual) 1.3 H Eosinophils # (Manual) PT 18.0 H INR 1.41 H Fibrinogen dRVVT Confirm Interp Factor V Activity POC ABG pH POC ABG pCO2 POC ABG pO2 Sodium 135 L Potassium Chloride Carbon Dioxide 17 L BUN 81 H Creatinine 3.2 H Glucose 109 H POC Glucose Lactic Acid Calcium 7.4 L Phosphorus 4.60 H D Magnesium Direct Bilirubin AST ALT Alkaline Phosphatase Troponin T C-Reactive Protein Total Protein Albumin Prealbumin Triglycerides Cholesterol LDL Cholesterol Direct HDL Cholesterol Urine pH Urine WBC (Auto) Urine Creatinine Urine Total Protein Vancomycin Trough Rheumatoid Factor Complement C4 Miscellaneous Test Crossmatch 10/09/16 10/09/16 10/09/16 03:45 05:14 07:20 WBC RBC Hgb Hct MCV MCH MCHC RDW Plt Count Lymph % (Auto) [place] % (Auto) Lymph # [place] # Baso # Seg Neutrophils % Seg Neuts % (Manual) Lymphocytes % (Manual) Monocytes % (Manual) Eosinophils % (Manual) Basophils % (Manual) Nucleated RBC % Seg Neutrophils # Seg Neutrophils # Man Lymphocytes # (Manual) Monocytes # (Manual) Eosinophils # (Manual) PT 19.0 H INR 1.51 H Fibrinogen dRVVT Confirm Interp Factor V Activity POC ABG pH POC ABG pCO2 POC ABG pO2 Sodium Potassium Chloride Carbon Dioxide BUN Creatinine Glucose POC Glucose 151 H Lactic Acid Calcium Phosphorus Magnesium Direct Bilirubin AST ALT Alkaline Phosphatase Troponin T C-Reactive Protein Total Protein Albumin Prealbumin Triglycerides Cholesterol LDL Cholesterol Direct HDL Cholesterol Urine pH Urine WBC (Auto) Urine Creatinine Urine Total Protein Vancomycin Trough Rheumatoid Factor Complement C4 Miscellaneous Test Crossmatch See Detail 10/09/16 10/09/16 10/09/16 11:46 16:20 16:43 WBC RBC Hgb 7.2 L Hct 22.2 L MCV MCH MCHC RDW Plt Count Lymph % (Auto) [place] % (Auto) Lymph # [place] # Baso # Seg Neutrophils % Seg Neuts % (Manual) Lymphocytes % (Manual) Monocytes % (Manual) Eosinophils % (Manual) Basophils % (Manual) Nucleated RBC % Seg Neutrophils # Seg Neutrophils # Man Lymphocytes # (Manual) Monocytes # (Manual) Eosinophils # (Manual) PT INR Fibrinogen dRVVT Confirm Interp Factor V Activity POC ABG pH POC ABG pCO2 POC ABG pO2 Sodium Potassium Chloride Carbon Dioxide BUN Creatinine Glucose POC Glucose 133 H 141 H Lactic Acid Calcium Phosphorus Magnesium Direct Bilirubin AST ALT Alkaline Phosphatase Troponin T C-Reactive Protein Total Protein Albumin Prealbumin Triglycerides Cholesterol LDL Cholesterol Direct HDL Cholesterol Urine pH Urine WBC (Auto) Urine Creatinine Urine Total Protein Vancomycin Trough Rheumatoid Factor Complement C4 Miscellaneous Test Crossmatch 10/10/16 10/10/16 10/10/16 05:00 05:00 11:19 WBC 18.5 H RBC 2.19 L Hgb 6.4 L Hct 19.6 L* MCV MCH MCHC RDW 19.3 H Plt Count 93 L Lymph % (Auto) [place] % (Auto) Lymph # [place] # Baso # Seg Neutrophils % Seg Neuts % (Manual) Lymphocytes % (Manual) 10.0 L Monocytes % (Manual) Eosinophils % (Manual) Basophils % (Manual) Nucleated RBC % 4.0 H Seg Neutrophils # Seg Neutrophils # Man 11.3 H Lymphocytes # (Manual) Monocytes # (Manual) Eosinophils # (Manual) PT INR Fibrinogen dRVVT Confirm Interp Factor V Activity POC ABG pH POC ABG pCO2 POC ABG pO2 Sodium Potassium 5.7 H D Chloride Carbon Dioxide 16 L BUN 94 H Creatinine 3.1 H Glucose 131 H POC Glucose 153 H Lactic Acid Calcium 8.2 L Phosphorus 5.10 H Magnesium 2.40 H Direct Bilirubin 0.3 H AST ALT < 5 L Alkaline Phosphatase 319 H Troponin T C-Reactive Protein Total Protein 5.1 L Albumin 1.0 L Prealbumin Triglycerides Cholesterol LDL Cholesterol Direct HDL Cholesterol Urine pH Urine WBC (Auto) Urine Creatinine Urine Total Protein Vancomycin Trough Rheumatoid Factor Complement C4 Miscellaneous Test Crossmatch 10/10/16 10/10/16 10/11/16 17:50 23:30 04:15 WBC RBC Hgb Hct MCV MCH MCHC RDW Plt Count Lymph % (Auto) [place] % (Auto) Lymph # [place] # Baso # Seg Neutrophils % Seg Neuts % (Manual) Lymphocytes % (Manual) Monocytes % (Manual) Eosinophils % (Manual) Basophils % (Manual) Nucleated RBC % Seg Neutrophils # Seg Neutrophils # Man Lymphocytes # (Manual) Monocytes # (Manual) Eosinophils # (Manual) PT INR Fibrinogen dRVVT Confirm Interp Factor V Activity POC ABG pH POC ABG pCO2 POC ABG pO2 Sodium Potassium Chloride 96.4 L Carbon Dioxide 21 L BUN 57 H Creatinine 2.1 H Glucose 151 H POC Glucose 146 H 141 H Lactic Acid Calcium 8.3 L Phosphorus Magnesium Direct Bilirubin AST ALT Alkaline Phosphatase Troponin T C-Reactive Protein Total Protein Albumin Prealbumin Triglycerides Cholesterol LDL Cholesterol Direct HDL Cholesterol Urine pH Urine WBC (Auto) Urine Creatinine Urine Total Protein Vancomycin Trough Rheumatoid Factor Complement C4 Miscellaneous Test Crossmatch 10/11/16 10/11/16 10/11/16 04:15 04:15 05:30 WBC 28.3 H RBC 3.12 L Hgb 9.3 L Hct 28.7 L D MCV MCH MCHC RDW 17.7 H Plt Count 128 L Lymph % (Auto) [place] % (Auto) Lymph # [place] # Baso # Seg Neutrophils % Seg Neuts % (Manual) Lymphocytes % (Manual) Monocytes % (Manual) Eosinophils % (Manual) Basophils % (Manual) Nucleated RBC % Seg Neutrophils # Seg Neutrophils # Man Lymphocytes # (Manual) Monocytes # (Manual) Eosinophils # (Manual) PT INR Fibrinogen dRVVT Confirm Interp Factor V Activity POC ABG pH POC ABG pCO2 POC ABG pO2 Sodium Potassium Chloride Carbon Dioxide BUN Creatinine Glucose POC Glucose 167 H Lactic Acid Calcium Phosphorus Magnesium Direct Bilirubin AST ALT Alkaline Phosphatase Troponin T C-Reactive Protein 15.80 H Total Protein Albumin Prealbumin Triglycerides Cholesterol LDL Cholesterol Direct HDL Cholesterol Urine pH Urine WBC (Auto) Urine Creatinine Urine Total Protein Vancomycin Trough Rheumatoid Factor Complement C4 Miscellaneous Test Crossmatch 10/11/16 10/11/16 10/11/16 11:40 15:49 23:57 WBC RBC Hgb Hct MCV MCH MCHC RDW Plt Count Lymph % (Auto) [place] % (Auto) Lymph # [place] # Baso # Seg Neutrophils % Seg Neuts % (Manual) Lymphocytes % (Manual) Monocytes % (Manual) Eosinophils % (Manual) Basophils % (Manual) Nucleated RBC % Seg Neutrophils # Seg Neutrophils # Man Lymphocytes # (Manual) Monocytes # (Manual) Eosinophils # (Manual) PT INR Fibrinogen dRVVT Confirm Interp Factor V Activity POC ABG pH POC ABG pCO2 POC ABG pO2 Sodium Potassium Chloride Carbon Dioxide BUN Creatinine Glucose POC Glucose 139 H 168 H 161 H Lactic Acid Calcium Phosphorus Magnesium Direct Bilirubin AST ALT Alkaline Phosphatase Troponin T C-Reactive Protein Total Protein Albumin Prealbumin Triglycerides Cholesterol LDL Cholesterol Direct HDL Cholesterol Urine pH Urine WBC (Auto) Urine Creatinine Urine Total Protein Vancomycin Trough Rheumatoid Factor Complement C4 Miscellaneous Test Crossmatch 10/12/16 10/12/16 10/12/16 04:40 04:40 05:44 WBC 22.5 H RBC 2.88 L Hgb 8.8 L Hct 26.8 L MCV MCH MCHC RDW 17.8 H Plt Count Lymph % (Auto) [place] % (Auto) Lymph # [place] # Baso # Seg Neutrophils % Seg Neuts % (Manual) Lymphocytes % (Manual) Monocytes % (Manual) Eosinophils % (Manual) Basophils % (Manual) Nucleated RBC % Seg Neutrophils # Seg Neutrophils # Man Lymphocytes # (Manual) Monocytes # (Manual) Eosinophils # (Manual) PT INR Fibrinogen dRVVT Confirm Interp Factor V Activity POC ABG pH POC ABG pCO2 POC ABG pO2 Sodium 134 L Potassium Chloride 93.0 L Carbon Dioxide BUN 74 H Creatinine 2.5 H Glucose 137 H POC Glucose 158 H Lactic Acid Calcium 8.2 L Phosphorus Magnesium Direct Bilirubin AST ALT Alkaline Phosphatase Troponin T C-Reactive Protein Total Protein Albumin Prealbumin Triglycerides Cholesterol LDL Cholesterol Direct HDL Cholesterol Urine pH Urine WBC (Auto) Urine Creatinine Urine Total Protein Vancomycin Trough Rheumatoid Factor Complement C4 Miscellaneous Test Crossmatch 10/12/16 10/12/16 10/12/16 12:27 18:18 23:46 WBC RBC Hgb Hct MCV MCH MCHC RDW Plt Count Lymph % (Auto) [place] % (Auto) Lymph # [place] # Baso # Seg Neutrophils % Seg Neuts % (Manual) Lymphocytes % (Manual) Monocytes % (Manual) Eosinophils % (Manual) Basophils % (Manual) Nucleated RBC % Seg Neutrophils # Seg Neutrophils # Man Lymphocytes # (Manual) Monocytes # (Manual) Eosinophils # (Manual) PT INR Fibrinogen dRVVT Confirm Interp Factor V Activity POC ABG pH POC ABG pCO2 POC ABG pO2 Sodium Potassium Chloride Carbon Dioxide BUN Creatinine Glucose POC Glucose 153 H 140 H 150 H Lactic Acid Calcium Phosphorus Magnesium Direct Bilirubin AST ALT Alkaline Phosphatase Troponin T C-Reactive Protein Total Protein Albumin Prealbumin Triglycerides Cholesterol LDL Cholesterol Direct HDL Cholesterol Urine pH Urine WBC (Auto) Urine Creatinine Urine Total Protein Vancomycin Trough Rheumatoid Factor Complement C4 Miscellaneous Test Crossmatch 10/13/16 10/13/16 10/13/16 06:22 09:20 12:29 WBC RBC Hgb Hct MCV MCH MCHC RDW Plt Count Lymph % (Auto) [place] % (Auto) Lymph # [place] # Baso # Seg Neutrophils % Seg Neuts % (Manual) Lymphocytes % (Manual) Monocytes % (Manual) Eosinophils % (Manual) Basophils % (Manual) Nucleated RBC % Seg Neutrophils # Seg Neutrophils # Man Lymphocytes # (Manual) Monocytes # (Manual) Eosinophils # (Manual) PT INR Fibrinogen dRVVT Confirm Interp Factor V Activity POC ABG pH POC ABG pCO2 POC ABG pO2 Sodium Potassium Chloride Carbon Dioxide BUN Creatinine Glucose POC Glucose 165 H 193 H Lactic Acid Calcium Phosphorus Magnesium Direct Bilirubin AST ALT Alkaline Phosphatase Troponin T C-Reactive Protein Total Protein Albumin Prealbumin Triglycerides Cholesterol LDL Cholesterol Direct HDL Cholesterol Urine pH Urine WBC (Auto) Urine Creatinine Urine Total Protein Vancomycin Trough Rheumatoid Factor Complement C4 Miscellaneous Test Flexitest 1 H Crossmatch 10/13/16 10/13/16 10/13/16 18:09 Unknown Unknown WBC 23.4 H RBC 2.83 L Hgb 8.7 L Hct 26.1 L MCV MCH MCHC RDW 18.1 H Plt Count Lymph % (Auto) [place] % (Auto) Lymph # [place] # Baso # Seg Neutrophils % Seg Neuts % (Manual) Lymphocytes % (Manual) Monocytes % (Manual) Eosinophils % (Manual) Basophils % (Manual) Nucleated RBC % Seg Neutrophils # Seg Neutrophils # Man Lymphocytes # (Manual) Monocytes # (Manual) Eosinophils # (Manual) PT INR Fibrinogen dRVVT Confirm Interp Factor V Activity POC ABG pH POC ABG pCO2 POC ABG pO2 Sodium Potassium Chloride 95.8 L Carbon Dioxide BUN 82 H Creatinine 2.6 H Glucose 152 H POC Glucose 166 H Lactic Acid Calcium Phosphorus Magnesium Direct Bilirubin AST ALT Alkaline Phosphatase Troponin T C-Reactive Protein Total Protein Albumin Prealbumin Triglycerides Cholesterol LDL Cholesterol Direct HDL Cholesterol Urine pH Urine WBC (Auto) Urine Creatinine Urine Total Protein Vancomycin Trough Rheumatoid Factor Complement C4 Miscellaneous Test Crossmatch 10/14/16 10/14/16 10/14/16 05:38 06:35 08:10 WBC 20.7 H RBC 2.81 L Hgb 8.4 L Hct 27.2 L MCV MCH MCHC RDW 19.4 H Plt Count Lymph % (Auto) [place] % (Auto) Lymph # [place] # Baso # Seg Neutrophils % Seg Neuts % (Manual) Lymphocytes % (Manual) Monocytes % (Manual) Eosinophils % (Manual) Basophils % (Manual) Nucleated RBC % Seg Neutrophils # Seg Neutrophils # Man Lymphocytes # (Manual) Monocytes # (Manual) Eosinophils # (Manual) PT INR Fibrinogen dRVVT Confirm Interp Factor V Activity POC ABG pH POC ABG pCO2 POC ABG pO2 Sodium Potassium Chloride Carbon Dioxide BUN 58 H Creatinine 1.9 H Glucose 169 H POC Glucose 195 H Lactic Acid Calcium Phosphorus Magnesium Direct Bilirubin AST ALT Alkaline Phosphatase Troponin T C-Reactive Protein Total Protein Albumin Prealbumin Triglycerides Cholesterol LDL Cholesterol Direct HDL Cholesterol Urine pH Urine WBC (Auto) Urine Creatinine Urine Total Protein Vancomycin Trough Rheumatoid Factor Complement C4 Miscellaneous Test Crossmatch 10/14/16 10/14/16 10/14/16 11:44 17:13 23:28 WBC RBC Hgb Hct MCV MCH MCHC RDW Plt Count Lymph % (Auto) [place] % (Auto) Lymph # [place] # Baso # Seg Neutrophils % Seg Neuts % (Manual) Lymphocytes % (Manual) Monocytes % (Manual) Eosinophils % (Manual) Basophils % (Manual) Nucleated RBC % Seg Neutrophils # Seg Neutrophils # Man Lymphocytes # (Manual) Monocytes # (Manual) Eosinophils # (Manual) PT INR Fibrinogen dRVVT Confirm Interp Factor V Activity POC ABG pH POC ABG pCO2 POC ABG pO2 Sodium Potassium Chloride Carbon Dioxide BUN Creatinine Glucose POC Glucose 174 H 121 H 151 H Lactic Acid Calcium Phosphorus Magnesium Direct Bilirubin AST ALT Alkaline Phosphatase Troponin T C-Reactive Protein Total Protein Albumin Prealbumin Triglycerides Cholesterol LDL Cholesterol Direct HDL Cholesterol Urine pH Urine WBC (Auto) Urine Creatinine Urine Total Protein Vancomycin Trough Rheumatoid Factor Complement C4 Miscellaneous Test Crossmatch 10/15/16 10/15/16 10/15/16 05:06 12:26 17:48 WBC RBC Hgb Hct MCV MCH MCHC RDW Plt Count Lymph % (Auto) [place] % (Auto) Lymph # [place] # Baso # Seg Neutrophils % Seg Neuts % (Manual) Lymphocytes % (Manual) Monocytes % (Manual) Eosinophils % (Manual) Basophils % (Manual) Nucleated RBC % Seg Neutrophils # Seg Neutrophils # Man Lymphocytes # (Manual) Monocytes # (Manual) Eosinophils # (Manual) PT INR Fibrinogen dRVVT Confirm Interp Factor V Activity POC ABG pH POC ABG pCO2 POC ABG pO2 Sodium Potassium Chloride Carbon Dioxide BUN Creatinine Glucose POC Glucose 151 H 149 H 153 H Lactic Acid Calcium Phosphorus Magnesium Direct Bilirubin AST ALT Alkaline Phosphatase Troponin T C-Reactive Protein Total Protein Albumin Prealbumin Triglycerides Cholesterol LDL Cholesterol Direct HDL Cholesterol Urine pH Urine WBC (Auto) Urine Creatinine Urine Total Protein Vancomycin Trough Rheumatoid Factor Complement C4 Miscellaneous Test Crossmatch 10/15/16 10/15/16 10/16/16 Unknown Unknown 00:02 WBC 23.4 H RBC 2.78 L Hgb 8.5 L Hct 25.7 L MCV MCH MCHC RDW 18.7 H Plt Count Lymph % (Auto) [place] % (Auto) Lymph # [place] # Baso # Seg Neutrophils % Seg Neuts % (Manual) Lymphocytes % (Manual) Monocytes % (Manual) Eosinophils % (Manual) Basophils % (Manual) Nucleated RBC % Seg Neutrophils # Seg Neutrophils # Man Lymphocytes # (Manual) Monocytes # (Manual) Eosinophils # (Manual) PT INR Fibrinogen dRVVT Confirm Interp Factor V Activity POC ABG pH POC ABG pCO2 POC ABG pO2 Sodium Potassium Chloride Carbon Dioxide BUN 73 H Creatinine 2.3 H Glucose 120 H POC Glucose 137 H Lactic Acid Calcium Phosphorus Magnesium Direct Bilirubin AST ALT Alkaline Phosphatase Troponin T C-Reactive Protein Total Protein Albumin Prealbumin Triglycerides Cholesterol LDL Cholesterol Direct HDL Cholesterol Urine pH Urine WBC (Auto) Urine Creatinine Urine Total Protein Vancomycin Trough Rheumatoid Factor Complement C4 Miscellaneous Test Crossmatch 10/16/16 10/16/16 10/16/16 05:44 06:25 06:25 WBC 22.5 H RBC 2.76 L Hgb 8.3 L Hct 25.2 L MCV MCH MCHC RDW 18.3 H Plt Count Lymph % (Auto) [place] % (Auto) Lymph # [place] # Baso # Seg Neutrophils % Seg Neuts % (Manual) Lymphocytes % (Manual) Monocytes % (Manual) Eosinophils % (Manual) Basophils % (Manual) Nucleated RBC % Seg Neutrophils # Seg Neutrophils # Man Lymphocytes # (Manual) Monocytes # (Manual) Eosinophils # (Manual) PT INR Fibrinogen dRVVT Confirm Interp Factor V Activity POC ABG pH POC ABG pCO2 POC ABG pO2 Sodium Potassium Chloride Carbon Dioxide BUN 92 H Creatinine 3.0 H Glucose 138 H POC Glucose 110 H Lactic Acid Calcium Phosphorus Magnesium Direct Bilirubin AST ALT Alkaline Phosphatase Troponin T C-Reactive Protein Total Protein Albumin Prealbumin Triglycerides Cholesterol LDL Cholesterol Direct HDL Cholesterol Urine pH Urine WBC (Auto) Urine Creatinine Urine Total Protein Vancomycin Trough Rheumatoid Factor Complement C4 Miscellaneous Test Crossmatch 10/16/16 10/16/16 10/16/16 11:27 11:48 17:36 WBC RBC Hgb Hct MCV MCH MCHC RDW Plt Count Lymph % (Auto) [place] % (Auto) Lymph # [place] # Baso # Seg Neutrophils % Seg Neuts % (Manual) Lymphocytes % (Manual) Monocytes % (Manual) Eosinophils % (Manual) Basophils % (Manual) Nucleated RBC % Seg Neutrophils # Seg Neutrophils # Man Lymphocytes # (Manual) Monocytes # (Manual) Eosinophils # (Manual) PT INR Fibrinogen dRVVT Confirm Interp Factor V Activity POC ABG pH 7.582 H POC ABG pCO2 27.4 L POC ABG pO2 110 H Sodium Potassium Chloride Carbon Dioxide BUN Creatinine Glucose POC Glucose 121 H 133 H Lactic Acid Calcium Phosphorus Magnesium Direct Bilirubin AST ALT Alkaline Phosphatase Troponin T C-Reactive Protein Total Protein Albumin Prealbumin Triglycerides Cholesterol LDL Cholesterol Direct HDL Cholesterol Urine pH Urine WBC (Auto) Urine Creatinine Urine Total Protein Vancomycin Trough Rheumatoid Factor Complement C4 Miscellaneous Test Crossmatch 10/16/16 10/17/16 10/17/16 20:48 04:24 04:24 WBC 21.4 H RBC 2.72 L Hgb 8.0 L Hct 25.2 L MCV MCH MCHC RDW 18.0 H Plt Count Lymph % (Auto) [place] % (Auto) Lymph # [place] # Baso # Seg Neutrophils % Seg Neuts % (Manual) Lymphocytes % (Manual) Monocytes % (Manual) Eosinophils % (Manual) Basophils % (Manual) Nucleated RBC % Seg Neutrophils # Seg Neutrophils # Man Lymphocytes # (Manual) Monocytes # (Manual) Eosinophils # (Manual) PT INR Fibrinogen dRVVT Confirm Interp Factor V Activity POC ABG pH 7.561 H POC ABG pCO2 24.4 L POC ABG pO2 77 L Sodium 148 H Potassium Chloride Carbon Dioxide BUN 104 H Creatinine 3.0 H Glucose 149 H POC Glucose Lactic Acid Calcium Phosphorus Magnesium Direct Bilirubin AST ALT Alkaline Phosphatase 138 H Troponin T C-Reactive Protein Total Protein 6.2 L Albumin 1.5 L Prealbumin Triglycerides Cholesterol LDL Cholesterol Direct HDL Cholesterol Urine pH Urine WBC (Auto) Urine Creatinine Urine Total Protein Vancomycin Trough Rheumatoid Factor Complement C4 Miscellaneous Test Crossmatch 10/17/16 10/17/16 10/17/16 06:02 12:17 17:14 WBC RBC Hgb Hct MCV MCH MCHC RDW Plt Count Lymph % (Auto) [place] % (Auto) Lymph # [place] # Baso # Seg Neutrophils % Seg Neuts % (Manual) Lymphocytes % (Manual) Monocytes % (Manual) Eosinophils % (Manual) Basophils % (Manual) Nucleated RBC % Seg Neutrophils # Seg Neutrophils # Man Lymphocytes # (Manual) Monocytes # (Manual) Eosinophils # (Manual) PT INR Fibrinogen dRVVT Confirm Interp Factor V Activity POC ABG pH POC ABG pCO2 POC ABG pO2 Sodium Potassium Chloride Carbon Dioxide BUN Creatinine Glucose POC Glucose 170 H 167 H 126 H Lactic Acid Calcium Phosphorus Magnesium Direct Bilirubin AST ALT Alkaline Phosphatase Troponin T C-Reactive Protein Total Protein Albumin Prealbumin Triglycerides Cholesterol LDL Cholesterol Direct HDL Cholesterol Urine pH Urine WBC (Auto) Urine Creatinine Urine Total Protein Vancomycin Trough Rheumatoid Factor Complement C4 Miscellaneous Test Crossmatch 10/17/16 10/18/16 10/18/16 23:17 04:00 04:00 WBC 20.7 H RBC 2.47 L Hgb 7.4 L Hct 22.9 L MCV MCH MCHC RDW 17.5 H Plt Count Lymph % (Auto) [place] % (Auto) Lymph # [place] # Baso # Seg Neutrophils % Seg Neuts % (Manual) Lymphocytes % (Manual) Monocytes % (Manual) Eosinophils % (Manual) Basophils % (Manual) Nucleated RBC % Seg Neutrophils # Seg Neutrophils # Man Lymphocytes # (Manual) Monocytes # (Manual) Eosinophils # (Manual) PT INR Fibrinogen dRVVT Confirm Interp Factor V Activity POC ABG pH POC ABG pCO2 POC ABG pO2 Sodium 149 H Potassium Chloride 107.9 H Carbon Dioxide 20 L BUN 117 H Creatinine 3.2 H Glucose 119 H POC Glucose 121 H Lactic Acid Calcium Phosphorus Magnesium Direct Bilirubin AST ALT Alkaline Phosphatase Troponin T C-Reactive Protein Total Protein Albumin Prealbumin Triglycerides Cholesterol LDL Cholesterol Direct HDL Cholesterol Urine pH Urine WBC (Auto) Urine Creatinine Urine Total Protein Vancomycin Trough Rheumatoid Factor Complement C4 Miscellaneous Test Crossmatch 10/18/16 10/18/16 10/18/16 05:23 10:46 17:30 WBC RBC Hgb Hct MCV MCH MCHC RDW Plt Count Lymph % (Auto) [place] % (Auto) Lymph # [place] # Baso # Seg Neutrophils % Seg Neuts % (Manual) Lymphocytes % (Manual) Monocytes % (Manual) Eosinophils % (Manual) Basophils % (Manual) Nucleated RBC % Seg Neutrophils # Seg Neutrophils # Man Lymphocytes # (Manual) Monocytes # (Manual) Eosinophils # (Manual) PT INR Fibrinogen dRVVT Confirm Interp Factor V Activity POC ABG pH POC ABG pCO2 POC ABG pO2 Sodium Potassium Chloride Carbon Dioxide BUN Creatinine Glucose POC Glucose 119 H 155 H 124 H Lactic Acid Calcium Phosphorus Magnesium Direct Bilirubin AST ALT Alkaline Phosphatase Troponin T C-Reactive Protein Total Protein Albumin Prealbumin Triglycerides Cholesterol LDL Cholesterol Direct HDL Cholesterol Urine pH Urine WBC (Auto) Urine Creatinine Urine Total Protein Vancomycin Trough Rheumatoid Factor Complement C4 Miscellaneous Test Crossmatch 10/19/16 10/19/16 10/19/16 04:00 04:00 05:25 WBC 17.4 H RBC 2.54 L Hgb 7.7 L Hct 23.6 L MCV MCH MCHC RDW 17.3 H Plt Count Lymph % (Auto) [place] % (Auto) Lymph # [place] # Baso # Seg Neutrophils % Seg Neuts % (Manual) Lymphocytes % (Manual) Monocytes % (Manual) Eosinophils % (Manual) Basophils % (Manual) Nucleated RBC % Seg Neutrophils # Seg Neutrophils # Man Lymphocytes # (Manual) Monocytes # (Manual) Eosinophils # (Manual) PT INR Fibrinogen dRVVT Confirm Interp Factor V Activity POC ABG pH POC ABG pCO2 POC ABG pO2 Sodium Potassium Chloride Carbon Dioxide BUN 72 H Creatinine 2.1 H Glucose 116 H POC Glucose 119 H Lactic Acid Calcium Phosphorus Magnesium Direct Bilirubin AST ALT Alkaline Phosphatase Troponin T C-Reactive Protein Total Protein Albumin Prealbumin Triglycerides Cholesterol LDL Cholesterol Direct HDL Cholesterol Urine pH Urine WBC (Auto) Urine Creatinine Urine Total Protein Vancomycin Trough Rheumatoid Factor Complement C4 Miscellaneous Test Crossmatch 10/19/16 10/19/16 10/20/16 11:46 23:59 06:00 WBC RBC Hgb Hct MCV MCH MCHC RDW Plt Count Lymph % (Auto) [place] % (Auto) Lymph # [place] # Baso # Seg Neutrophils % Seg Neuts % (Manual) Lymphocytes % (Manual) Monocytes % (Manual) Eosinophils % (Manual) Basophils % (Manual) Nucleated RBC % Seg Neutrophils # Seg Neutrophils # Man Lymphocytes # (Manual) Monocytes # (Manual) Eosinophils # (Manual) PT INR Fibrinogen dRVVT Confirm Interp Factor V Activity POC ABG pH POC ABG pCO2 POC ABG pO2 Sodium Potassium Chloride Carbon Dioxide 17 L BUN 94 H Creatinine 2.7 H Glucose POC Glucose 116 H 117 H Lactic Acid Calcium Phosphorus Magnesium Direct Bilirubin AST ALT Alkaline Phosphatase Troponin T C-Reactive Protein Total Protein Albumin Prealbumin Triglycerides Cholesterol LDL Cholesterol Direct HDL Cholesterol Urine pH Urine WBC (Auto) Urine Creatinine Urine Total Protein Vancomycin Trough Rheumatoid Factor Complement C4 Miscellaneous Test Crossmatch 10/20/16 10/20/16 10/20/16 06:00 11:49 16:00 WBC 19.7 H RBC 2.51 L Hgb 7.7 L Hct 23.5 L MCV MCH MCHC RDW 17.5 H Plt Count Lymph % (Auto) [place] % (Auto) Lymph # [place] # Baso # Seg Neutrophils % Seg Neuts % (Manual) Lymphocytes % (Manual) Monocytes % (Manual) Eosinophils % (Manual) Basophils % (Manual) Nucleated RBC % Seg Neutrophils # Seg Neutrophils # Man Lymphocytes # (Manual) Monocytes # (Manual) Eosinophils # (Manual) PT INR Fibrinogen dRVVT Confirm Interp Factor V Activity POC ABG pH POC ABG pCO2 POC ABG pO2 Sodium Potassium Chloride Carbon Dioxide BUN Creatinine Glucose POC Glucose 117 H Lactic Acid Calcium Phosphorus Magnesium Direct Bilirubin AST ALT Alkaline Phosphatase Troponin T C-Reactive Protein Total Protein Albumin Prealbumin Triglycerides Cholesterol LDL Cholesterol Direct HDL Cholesterol Urine pH Urine WBC (Auto) Urine Creatinine Urine Total Protein Vancomycin Trough Rheumatoid Factor Complement C4 Miscellaneous Test Flexitest 1 H Crossmatch 10/20/16 10/20/16 10/21/16 18:36 23:39 04:00 WBC RBC Hgb Hct MCV MCH MCHC RDW Plt Count Lymph % (Auto) [place] % (Auto) Lymph # [place] # Baso # Seg Neutrophils % Seg Neuts % (Manual) Lymphocytes % (Manual) Monocytes % (Manual) Eosinophils % (Manual) Basophils % (Manual) Nucleated RBC % Seg Neutrophils # Seg Neutrophils # Man Lymphocytes # (Manual) Monocytes # (Manual) Eosinophils # (Manual) PT INR Fibrinogen dRVVT Confirm Interp Factor V Activity POC ABG pH POC ABG pCO2 POC ABG pO2 Sodium Potassium 5.4 H D Chloride Carbon Dioxide 15 L BUN 110 H Creatinine 3.0 H Glucose POC Glucose 127 H 114 H Lactic Acid Calcium Phosphorus Magnesium Direct Bilirubin AST ALT Alkaline Phosphatase Troponin T C-Reactive Protein Total Protein Albumin Prealbumin Triglycerides Cholesterol LDL Cholesterol Direct HDL Cholesterol Urine pH Urine WBC (Auto) Urine Creatinine Urine Total Protein Vancomycin Trough Rheumatoid Factor Complement C4 Miscellaneous Test Crossmatch 10/21/16 10/21/16 10/22/16 05:54 23:46 05:18 WBC RBC Hgb Hct MCV MCH MCHC RDW Plt Count Lymph % (Auto) [place] % (Auto) Lymph # [place] # Baso # Seg Neutrophils % Seg Neuts % (Manual) Lymphocytes % (Manual) Monocytes % (Manual) Eosinophils % (Manual) Basophils % (Manual) Nucleated RBC % Seg Neutrophils # Seg Neutrophils # Man Lymphocytes # (Manual) Monocytes # (Manual) Eosinophils # (Manual) PT INR Fibrinogen dRVVT Confirm Interp Factor V Activity POC ABG pH POC ABG pCO2 POC ABG pO2 Sodium Potassium Chloride Carbon Dioxide BUN Creatinine Glucose POC Glucose 119 H 108 H 109 H Lactic Acid Calcium Phosphorus Magnesium Direct Bilirubin AST ALT Alkaline Phosphatase Troponin T C-Reactive Protein Total Protein Albumin Prealbumin Triglycerides Cholesterol LDL Cholesterol Direct HDL Cholesterol Urine pH Urine WBC (Auto) Urine Creatinine Urine Total Protein Vancomycin Trough Rheumatoid Factor Complement C4 Miscellaneous Test Crossmatch 10/22/16 10/22/16 10/22/16 06:40 06:40 06:40 WBC 14.0 H RBC 2.03 L Hgb 7.0 L Hct 20.5 L MCV 98 H MCH 34 H MCHC 35 H RDW 17.8 H Plt Count Lymph % (Auto) [place] % (Auto) 9.9 H Lymph # [place] # 1.4 H Baso # 0.2 H Seg Neutrophils % 72.0 H Seg Neuts % (Manual) Lymphocytes % (Manual) Monocytes % (Manual) Eosinophils % (Manual) Basophils % (Manual) Nucleated RBC % Seg Neutrophils # 10.0 H Seg Neutrophils # Man Lymphocytes # (Manual) Monocytes # (Manual) Eosinophils # (Manual) PT INR Fibrinogen dRVVT Confirm Interp Factor V Activity POC ABG pH POC ABG pCO2 POC ABG pO2 Sodium 130 L D Potassium Chloride 92.4 L Carbon Dioxide 20 L BUN 50 H Creatinine 1.6 H Glucose 589 H* POC Glucose Lactic Acid Calcium 7.8 L D Phosphorus Magnesium 1.60 L Direct Bilirubin AST ALT Alkaline Phosphatase Troponin T C-Reactive Protein Total Protein Albumin Prealbumin Triglycerides Cholesterol LDL Cholesterol Direct HDL Cholesterol Urine pH Urine WBC (Auto) Urine Creatinine Urine Total Protein Vancomycin Trough Rheumatoid Factor Complement C4 Miscellaneous Test Crossmatch 10/22/16 10/22/16 10/22/16 11:39 16:44 23:36 WBC RBC Hgb Hct MCV MCH MCHC RDW Plt Count Lymph % (Auto) [place] % (Auto) Lymph # [place] # Baso # Seg Neutrophils % Seg Neuts % (Manual) Lymphocytes % (Manual) Monocytes % (Manual) Eosinophils % (Manual) Basophils % (Manual) Nucleated RBC % Seg Neutrophils # Seg Neutrophils # Man Lymphocytes # (Manual) Monocytes # (Manual) Eosinophils # (Manual) PT INR Fibrinogen dRVVT Confirm Interp Factor V Activity POC ABG pH POC ABG pCO2 POC ABG pO2 Sodium Potassium Chloride Carbon Dioxide BUN Creatinine Glucose POC Glucose 142 H 163 H 123 H Lactic Acid Calcium Phosphorus Magnesium Direct Bilirubin AST ALT Alkaline Phosphatase Troponin T C-Reactive Protein Total Protein Albumin Prealbumin Triglycerides Cholesterol LDL Cholesterol Direct HDL Cholesterol Urine pH Urine WBC (Auto) Urine Creatinine Urine Total Protein Vancomycin Trough Rheumatoid Factor Complement C4 Miscellaneous Test Crossmatch 10/23/16 10/23/16 10/23/16 04:58 06:00 12:12 WBC RBC Hgb Hct MCV MCH MCHC RDW Plt Count Lymph % (Auto) [place] % (Auto) Lymph # [place] # Baso # Seg Neutrophils % Seg Neuts % (Manual) Lymphocytes % (Manual) Monocytes % (Manual) Eosinophils % (Manual) Basophils % (Manual) Nucleated RBC % Seg Neutrophils # Seg Neutrophils # Man Lymphocytes # (Manual) Monocytes # (Manual) Eosinophils # (Manual) PT INR Fibrinogen dRVVT Confirm Interp Factor V Activity POC ABG pH POC ABG pCO2 POC ABG pO2 Sodium 133 L Potassium 3.5 L Chloride 96.1 L Carbon Dioxide 18 L BUN 76 H Creatinine 2.1 H Glucose POC Glucose 133 H 138 H Lactic Acid Calcium 8.3 L Phosphorus Magnesium Direct Bilirubin AST ALT Alkaline Phosphatase Troponin T C-Reactive Protein Total Protein Albumin Prealbumin Triglycerides Cholesterol LDL Cholesterol Direct HDL Cholesterol Urine pH Urine WBC (Auto) Urine Creatinine Urine Total Protein Vancomycin Trough Rheumatoid Factor Complement C4 Miscellaneous Test Crossmatch 10/23/16 10/23/16 10/24/16 16:53 23:37 04:00 WBC RBC Hgb Hct MCV MCH MCHC RDW Plt Count Lymph % (Auto) [place] % (Auto) Lymph # [place] # Baso # Seg Neutrophils % Seg Neuts % (Manual) Lymphocytes % (Manual) Monocytes % (Manual) Eosinophils % (Manual) Basophils % (Manual) Nucleated RBC % Seg Neutrophils # Seg Neutrophils # Man Lymphocytes # (Manual) Monocytes # (Manual) Eosinophils # (Manual) PT INR Fibrinogen dRVVT Confirm Interp Factor V Activity POC ABG pH POC ABG pCO2 POC ABG pO2 Sodium 131 L Potassium Chloride 94.5 L Carbon Dioxide 19 L BUN 97 H Creatinine 2.6 H Glucose 110 H POC Glucose 125 H 123 H Lactic Acid Calcium 8.3 L Phosphorus Magnesium Direct Bilirubin AST ALT Alkaline Phosphatase Troponin T C-Reactive Protein Total Protein Albumin Prealbumin Triglycerides Cholesterol LDL Cholesterol Direct HDL Cholesterol Urine pH Urine WBC (Auto) Urine Creatinine Urine Total Protein Vancomycin Trough Rheumatoid Factor Complement C4 Miscellaneous Test Crossmatch 10/24/16 10/24/16 10/24/16 07:49 11:39 17:52 WBC RBC Hgb 6.0 L Hct 19.7 L* MCV MCH MCHC RDW Plt Count Lymph % (Auto) [place] % (Auto) Lymph # [place] # Baso # Seg Neutrophils % Seg Neuts % (Manual) Lymphocytes % (Manual) Monocytes % (Manual) Eosinophils % (Manual) Basophils % (Manual) Nucleated RBC % Seg Neutrophils # Seg Neutrophils # Man Lymphocytes # (Manual) Monocytes # (Manual) Eosinophils # (Manual) PT INR Fibrinogen dRVVT Confirm Interp Factor V Activity POC ABG pH POC ABG pCO2 POC ABG pO2 Sodium Potassium Chloride Carbon Dioxide BUN Creatinine Glucose POC Glucose 106 H 158 H Lactic Acid Calcium Phosphorus Magnesium Direct Bilirubin AST ALT Alkaline Phosphatase Troponin T C-Reactive Protein Total Protein Albumin Prealbumin Triglycerides Cholesterol LDL Cholesterol Direct HDL Cholesterol Urine pH Urine WBC (Auto) Urine Creatinine Urine Total Protein Vancomycin Trough Rheumatoid Factor Complement C4 Miscellaneous Test Crossmatch 10/24/16 10/24/16 10/24/16 20:00 22:27 Unknown WBC RBC Hgb 9.4 L D Hct 27.5 L D MCV MCH MCHC RDW Plt Count Lymph % (Auto) [place] % (Auto) Lymph # [place] # Baso # Seg Neutrophils % Seg Neuts % (Manual) Lymphocytes % (Manual) Monocytes % (Manual) Eosinophils % (Manual) Basophils % (Manual) Nucleated RBC % Seg Neutrophils # Seg Neutrophils # Man Lymphocytes # (Manual) Monocytes # (Manual) Eosinophils # (Manual) PT INR Fibrinogen dRVVT Confirm Interp Factor V Activity POC ABG pH POC ABG pCO2 POC ABG pO2 Sodium Potassium Chloride Carbon Dioxide BUN Creatinine Glucose POC Glucose 125 H Lactic Acid Calcium Phosphorus Magnesium Direct Bilirubin AST ALT Alkaline Phosphatase Troponin T C-Reactive Protein Total Protein Albumin Prealbumin Triglycerides Cholesterol LDL Cholesterol Direct HDL Cholesterol Urine pH Urine WBC (Auto) Urine Creatinine Urine Total Protein Vancomycin Trough Rheumatoid Factor Complement C4 Miscellaneous Test Crossmatch See Detail 10/25/16 10/25/16 10/25/16 04:00 04:00 04:00 WBC 14.2 H RBC 2.98 L Hgb 9.0 L Hct 26.2 L MCV MCH MCHC RDW 16.6 H Plt Count Lymph % (Auto) [place] % (Auto) 10.7 H Lymph # [place] # 1.5 H Baso # Seg Neutrophils % 73.6 H Seg Neuts % (Manual) Lymphocytes % (Manual) Monocytes % (Manual) Eosinophils % (Manual) Basophils % (Manual) Nucleated RBC % Seg Neutrophils # 10.5 H Seg Neutrophils # Man Lymphocytes # (Manual) Monocytes # (Manual) Eosinophils # (Manual) PT INR Fibrinogen dRVVT Confirm Interp Factor V Activity POC ABG pH POC ABG pCO2 POC ABG pO2 Sodium 132 L Potassium Chloride 94.7 L Carbon Dioxide BUN 51 H Creatinine 1.6 H Glucose 130 H POC Glucose Lactic Acid Calcium 8.3 L Phosphorus 1.60 L D Magnesium Direct Bilirubin AST ALT Alkaline Phosphatase Troponin T C-Reactive Protein Total Protein Albumin Prealbumin Triglycerides Cholesterol LDL Cholesterol Direct HDL Cholesterol Urine pH Urine WBC (Auto) Urine Creatinine Urine Total Protein Vancomycin Trough Rheumatoid Factor Complement C4 Miscellaneous Test Crossmatch 10/25/16 10/25/16 10/25/16 04:32 11:48 17:22 WBC RBC Hgb Hct MCV MCH MCHC RDW Plt Count Lymph % (Auto) [place] % (Auto) Lymph # [place] # Baso # Seg Neutrophils % Seg Neuts % (Manual) Lymphocytes % (Manual) Monocytes % (Manual) Eosinophils % (Manual) Basophils % (Manual) Nucleated RBC % Seg Neutrophils # Seg Neutrophils # Man Lymphocytes # (Manual) Monocytes # (Manual) Eosinophils # (Manual) PT INR Fibrinogen dRVVT Confirm Interp Factor V Activity POC ABG pH POC ABG pCO2 POC ABG pO2 Sodium Potassium Chloride Carbon Dioxide BUN Creatinine Glucose POC Glucose 124 H 171 H 120 H Lactic Acid Calcium Phosphorus Magnesium Direct Bilirubin AST ALT Alkaline Phosphatase Troponin T C-Reactive Protein Total Protein Albumin Prealbumin Triglycerides Cholesterol LDL Cholesterol Direct HDL Cholesterol Urine pH Urine WBC (Auto) Urine Creatinine Urine Total Protein Vancomycin Trough Rheumatoid Factor Complement C4 Miscellaneous Test Crossmatch 10/26/16 10/26/16 10/26/16 04:54 07:06 07:06 WBC 16.9 H RBC 3.06 L Hgb 9.1 L Hct 26.9 L MCV MCH MCHC RDW 16.9 H Plt Count Lymph % (Auto) [place] % (Auto) Lymph # [place] # Baso # Seg Neutrophils % Seg Neuts % (Manual) 71.0 H Lymphocytes % (Manual) 5.0 L Monocytes % (Manual) 12.0 H Eosinophils % (Manual) Basophils % (Manual) Nucleated RBC % Seg Neutrophils # Seg Neutrophils # Man 12.0 H Lymphocytes # (Manual) 0.8 L Monocytes # (Manual) 2.0 H Eosinophils # (Manual) PT INR Fibrinogen dRVVT Confirm Interp Factor V Activity POC ABG pH POC ABG pCO2 POC ABG pO2 Sodium 135 L Potassium Chloride 97.1 L Carbon Dioxide BUN 73 H Creatinine 2.2 H Glucose 117 H POC Glucose 123 H Lactic Acid Calcium Phosphorus 1.70 L Magnesium Direct Bilirubin AST ALT Alkaline Phosphatase Troponin T C-Reactive Protein Total Protein Albumin Prealbumin Triglycerides Cholesterol LDL Cholesterol Direct HDL Cholesterol Urine pH Urine WBC (Auto) Urine Creatinine Urine Total Protein Vancomycin Trough Rheumatoid Factor Complement C4 Miscellaneous Test Crossmatch 10/26/16 10/26/16 10/26/16 12:12 17:29 23:42 WBC RBC Hgb Hct MCV MCH MCHC RDW Plt Count Lymph % (Auto) [place] % (Auto) Lymph # [place] # Baso # Seg Neutrophils % Seg Neuts % (Manual) Lymphocytes % (Manual) Monocytes % (Manual) Eosinophils % (Manual) Basophils % (Manual) Nucleated RBC % Seg Neutrophils # Seg Neutrophils # Man Lymphocytes # (Manual) Monocytes # (Manual) Eosinophils # (Manual) PT INR Fibrinogen dRVVT Confirm Interp Factor V Activity POC ABG pH POC ABG pCO2 POC ABG pO2 Sodium Potassium Chloride Carbon Dioxide BUN Creatinine Glucose POC Glucose 126 H 161 H 118 H Lactic Acid Calcium Phosphorus Magnesium Direct Bilirubin AST ALT Alkaline Phosphatase Troponin T C-Reactive Protein Total Protein Albumin Prealbumin Triglycerides Cholesterol LDL Cholesterol Direct HDL Cholesterol Urine pH Urine WBC (Auto) Urine Creatinine Urine Total Protein Vancomycin Trough Rheumatoid Factor Complement C4 Miscellaneous Test Crossmatch 10/27/16 10/27/16 10/27/16 05:03 06:30 06:30 WBC 13.9 H RBC 3.09 L Hgb 9.2 L Hct 27.5 L MCV MCH MCHC RDW 17.0 H Plt Count Lymph % (Auto) [place] % (Auto) Lymph # [place] # Baso # Seg Neutrophils % Seg Neuts % (Manual) 78.0 H Lymphocytes % (Manual) Monocytes % (Manual) Eosinophils % (Manual) Basophils % (Manual) Nucleated RBC % 2.0 H Seg Neutrophils # Seg Neutrophils # Man 10.8 H Lymphocytes # (Manual) Monocytes # (Manual) 1.0 H Eosinophils # (Manual) PT INR Fibrinogen dRVVT Confirm Interp Factor V Activity POC ABG pH POC ABG pCO2 POC ABG pO2 Sodium Potassium Chloride Carbon Dioxide BUN 40 H Creatinine 1.5 H Glucose 135 H POC Glucose 107 H Lactic Acid Calcium 8.3 L Phosphorus 1.30 L D Magnesium Direct Bilirubin AST ALT Alkaline Phosphatase Troponin T C-Reactive Protein Total Protein Albumin Prealbumin Triglycerides Cholesterol LDL Cholesterol Direct HDL Cholesterol Urine pH Urine WBC (Auto) Urine Creatinine Urine Total Protein Vancomycin Trough Rheumatoid Factor Complement C4 Miscellaneous Test Crossmatch 10/27/16 10/27/16 10/27/16 13:27 18:07 23:40 WBC RBC Hgb Hct MCV MCH MCHC RDW Plt Count Lymph % (Auto) [place] % (Auto) Lymph # [place] # Baso # Seg Neutrophils % Seg Neuts % (Manual) Lymphocytes % (Manual) Monocytes % (Manual) Eosinophils % (Manual) Basophils % (Manual) Nucleated RBC % Seg Neutrophils # Seg Neutrophils # Man Lymphocytes # (Manual) Monocytes # (Manual) Eosinophils # (Manual) PT INR Fibrinogen dRVVT Confirm Interp Factor V Activity POC ABG pH POC ABG pCO2 POC ABG pO2 Sodium Potassium Chloride Carbon Dioxide BUN Creatinine Glucose POC Glucose 117 H 121 H 118 H Lactic Acid Calcium Phosphorus Magnesium Direct Bilirubin AST ALT Alkaline Phosphatase Troponin T C-Reactive Protein Total Protein Albumin Prealbumin Triglycerides Cholesterol LDL Cholesterol Direct HDL Cholesterol Urine pH Urine WBC (Auto) Urine Creatinine Urine Total Protein Vancomycin Trough Rheumatoid Factor Complement C4 Miscellaneous Test Crossmatch 10/28/16 10/28/16 10/28/16 05:48 06:45 06:45 WBC 14.7 H RBC 3.05 L Hgb 9.0 L Hct 26.9 L MCV MCH MCHC RDW 16.8 H Plt Count Lymph % (Auto) 8.2 L [place] % (Auto) 8.4 H Lymph # [place] # 1.2 H Baso # Seg Neutrophils % 81.9 H Seg Neuts % (Manual) Lymphocytes % (Manual) Monocytes % (Manual) Eosinophils % (Manual) Basophils % (Manual) Nucleated RBC % Seg Neutrophils # 12.1 H Seg Neutrophils # Man Lymphocytes # (Manual) Monocytes # (Manual) Eosinophils # (Manual) PT INR Fibrinogen dRVVT Confirm Interp Factor V Activity POC ABG pH POC ABG pCO2 POC ABG pO2 Sodium Potassium Chloride Carbon Dioxide BUN 60 H Creatinine 1.9 H Glucose 120 H POC Glucose 114 H Lactic Acid Calcium Phosphorus Magnesium Direct Bilirubin AST ALT Alkaline Phosphatase Troponin T C-Reactive Protein Total Protein Albumin Prealbumin Triglycerides Cholesterol LDL Cholesterol Direct HDL Cholesterol Urine pH Urine WBC (Auto) Urine Creatinine Urine Total Protein Vancomycin Trough Rheumatoid Factor Complement C4 Miscellaneous Test Crossmatch 10/28/16 10/28/16 10/29/16 17:08 23:50 05:10 WBC RBC Hgb Hct MCV MCH MCHC RDW Plt Count Lymph % (Auto) [place] % (Auto) Lymph # [place] # Baso # Seg Neutrophils % Seg Neuts % (Manual) Lymphocytes % (Manual) Monocytes % (Manual) Eosinophils % (Manual) Basophils % (Manual) Nucleated RBC % Seg Neutrophils # Seg Neutrophils # Man Lymphocytes # (Manual) Monocytes # (Manual) Eosinophils # (Manual) PT INR Fibrinogen dRVVT Confirm Interp Factor V Activity POC ABG pH POC ABG pCO2 POC ABG pO2 Sodium Potassium Chloride Carbon Dioxide BUN Creatinine Glucose POC Glucose 109 H 110 H 124 H Lactic Acid Calcium Phosphorus Magnesium Direct Bilirubin AST ALT Alkaline Phosphatase Troponin T C-Reactive Protein Total Protein Albumin Prealbumin Triglycerides Cholesterol LDL Cholesterol Direct HDL Cholesterol Urine pH Urine WBC (Auto) Urine Creatinine Urine Total Protein Vancomycin Trough Rheumatoid Factor Complement C4 Miscellaneous Test Crossmatch 10/29/16 10/29/16 10/29/16 07:45 07:45 12:19 WBC 14.7 H RBC 3.15 L Hgb 9.3 L Hct 28.9 L MCV MCH MCHC RDW 17.0 H Plt Count Lymph % (Auto) 11.9 L [place] % (Auto) 8.6 H Lymph # [place] # 1.3 H Baso # Seg Neutrophils % 78.1 H Seg Neuts % (Manual) Lymphocytes % (Manual) Monocytes % (Manual) Eosinophils % (Manual) Basophils % (Manual) Nucleated RBC % Seg Neutrophils # 11.4 H Seg Neutrophils # Man Lymphocytes # (Manual) Monocytes # (Manual) Eosinophils # (Manual) PT INR Fibrinogen dRVVT Confirm Interp Factor V Activity POC ABG pH POC ABG pCO2 POC ABG pO2 Sodium Potassium 5.1 H Chloride Carbon Dioxide 19 L BUN 78 H Creatinine 2.2 H Glucose 116 H POC Glucose 118 H Lactic Acid Calcium Phosphorus Magnesium Direct Bilirubin AST ALT Alkaline Phosphatase Troponin T C-Reactive Protein Total Protein Albumin Prealbumin Triglycerides Cholesterol LDL Cholesterol Direct HDL Cholesterol Urine pH Urine WBC (Auto) Urine Creatinine Urine Total Protein Vancomycin Trough Rheumatoid Factor Complement C4 Miscellaneous Test Crossmatch 10/29/16 10/30/16 10/30/16 17:49 01:52 03:28 WBC RBC Hgb Hct MCV MCH MCHC RDW Plt Count Lymph % (Auto) [place] % (Auto) Lymph # [place] # Baso # Seg Neutrophils % Seg Neuts % (Manual) Lymphocytes % (Manual) Monocytes % (Manual) Eosinophils % (Manual) Basophils % (Manual) Nucleated RBC % Seg Neutrophils # Seg Neutrophils # Man Lymphocytes # (Manual) Monocytes # (Manual) Eosinophils # (Manual) PT INR Fibrinogen dRVVT Confirm Interp Factor V Activity POC ABG pH POC ABG pCO2 POC ABG pO2 Sodium Potassium 5.4 H Chloride 97.5 L Carbon Dioxide 19 L BUN 90 H Creatinine 2.5 H Glucose POC Glucose 120 H 129 H Lactic Acid Calcium Phosphorus 5.20 H Magnesium Direct Bilirubin AST ALT Alkaline Phosphatase Troponin T C-Reactive Protein Total Protein Albumin Prealbumin Triglycerides Cholesterol LDL Cholesterol Direct HDL Cholesterol Urine pH Urine WBC (Auto) Urine Creatinine Urine Total Protein Vancomycin Trough Rheumatoid Factor Complement C4 Miscellaneous Test Crossmatch 10/30/16 10/30/16 10/30/16 03:28 08:19 08:19 WBC 11.6 H 15.9 H RBC 2.75 L 2.82 L Hgb 7.9 L 8.3 L Hct 24.2 L 25.2 L MCV MCH MCHC RDW 16.7 H 17.2 H Plt Count Lymph % (Auto) [place] % (Auto) 9.8 H Lymph # [place] # 1.1 H Baso # Seg Neutrophils % 74.2 H Seg Neuts % (Manual) Lymphocytes % (Manual) Monocytes % (Manual) Eosinophils % (Manual) Basophils % (Manual) Nucleated RBC % Seg Neutrophils # 8.6 H Seg Neutrophils # Man Lymphocytes # (Manual) Monocytes # (Manual) Eosinophils # (Manual) PT INR Fibrinogen dRVVT Confirm Interp Factor V Activity POC ABG pH POC ABG pCO2 POC ABG pO2 Sodium Potassium 5.3 H Chloride 97.4 L Carbon Dioxide 19 L BUN 93 H Creatinine 2.6 H Glucose POC Glucose Lactic Acid Calcium Phosphorus Magnesium Direct Bilirubin AST ALT Alkaline Phosphatase Troponin T C-Reactive Protein Total Protein Albumin Prealbumin Triglycerides Cholesterol LDL Cholesterol Direct HDL Cholesterol Urine pH Urine WBC (Auto) Urine Creatinine Urine Total Protein Vancomycin Trough Rheumatoid Factor Complement C4 Miscellaneous Test Crossmatch 10/30/16 10/30/16 10/31/16 17:11 23:56 00:40 WBC RBC Hgb Hct MCV MCH MCHC RDW Plt Count Lymph % (Auto) [place] % (Auto) Lymph # [place] # Baso # Seg Neutrophils % Seg Neuts % (Manual) Lymphocytes % (Manual) Monocytes % (Manual) Eosinophils % (Manual) Basophils % (Manual) Nucleated RBC % Seg Neutrophils # Seg Neutrophils # Man Lymphocytes # (Manual) Monocytes # (Manual) Eosinophils # (Manual) PT INR Fibrinogen dRVVT Confirm Interp Factor V Activity POC ABG pH POC ABG pCO2 POC ABG pO2 Sodium Potassium Chloride Carbon Dioxide BUN Creatinine Glucose POC Glucose 106 H 117 H 120 H Lactic Acid Calcium Phosphorus Magnesium Direct Bilirubin AST ALT Alkaline Phosphatase Troponin T C-Reactive Protein Total Protein Albumin Prealbumin Triglycerides Cholesterol LDL Cholesterol Direct HDL Cholesterol Urine pH Urine WBC (Auto) Urine Creatinine Urine Total Protein Vancomycin Trough Rheumatoid Factor Complement C4 Miscellaneous Test Crossmatch 10/31/16 10/31/16 10/31/16 05:43 07:15 07:15 WBC 12.1 H RBC 2.63 L Hgb 7.7 L Hct 23.3 L MCV MCH MCHC RDW 16.7 H Plt Count Lymph % (Auto) 11.7 L [place] % (Auto) 7.7 H Lymph # [place] # 0.9 H Baso # Seg Neutrophils % 78.0 H Seg Neuts % (Manual) Lymphocytes % (Manual) Monocytes % (Manual) Eosinophils % (Manual) Basophils % (Manual) Nucleated RBC % Seg Neutrophils # 9.4 H Seg Neutrophils # Man Lymphocytes # (Manual) Monocytes # (Manual) Eosinophils # (Manual) PT INR Fibrinogen dRVVT Confirm Interp Factor V Activity POC ABG pH POC ABG pCO2 POC ABG pO2 Sodium Potassium Chloride 96.4 L Carbon Dioxide 21 L BUN 99 H Creatinine 2.6 H Glucose 144 H POC Glucose 125 H Lactic Acid Calcium Phosphorus 4.80 H Magnesium Direct Bilirubin AST ALT Alkaline Phosphatase Troponin T C-Reactive Protein Total Protein Albumin Prealbumin Triglycerides Cholesterol LDL Cholesterol Direct HDL Cholesterol Urine pH Urine WBC (Auto) Urine Creatinine Urine Total Protein Vancomycin Trough Rheumatoid Factor Complement C4 Miscellaneous Test Crossmatch 10/31/16 10/31/16 11/01/16 11:46 18:34 00:20 WBC RBC Hgb Hct MCV MCH MCHC RDW Plt Count Lymph % (Auto) [place] % (Auto) Lymph # [place] # Baso # Seg Neutrophils % Seg Neuts % (Manual) Lymphocytes % (Manual) Monocytes % (Manual) Eosinophils % (Manual) Basophils % (Manual) Nucleated RBC % Seg Neutrophils # Seg Neutrophils # Man Lymphocytes # (Manual) Monocytes # (Manual) Eosinophils # (Manual) PT INR Fibrinogen dRVVT Confirm Interp Factor V Activity POC ABG pH POC ABG pCO2 POC ABG pO2 Sodium Potassium Chloride Carbon Dioxide BUN Creatinine Glucose POC Glucose 159 H 140 H 132 H Lactic Acid Calcium Phosphorus Magnesium Direct Bilirubin AST ALT Alkaline Phosphatase Troponin T C-Reactive Protein Total Protein Albumin Prealbumin Triglycerides Cholesterol LDL Cholesterol Direct HDL Cholesterol Urine pH Urine WBC (Auto) Urine Creatinine Urine Total Protein Vancomycin Trough Rheumatoid Factor Complement C4 Miscellaneous Test Crossmatch 11/01/16 11/01/16 11/01/16 04:55 04:55 06:11 WBC 11.2 H RBC 2.68 L Hgb 7.5 L Hct 23.7 L MCV MCH MCHC RDW 16.1 H Plt Count Lymph % (Auto) [place] % (Auto) 9.8 H Lymph # [place] # 1.1 H Baso # Seg Neutrophils % 70.8 H Seg Neuts % (Manual) Lymphocytes % (Manual) Monocytes % (Manual) Eosinophils % (Manual) Basophils % (Manual) Nucleated RBC % Seg Neutrophils # 7.9 H Seg Neutrophils # Man Lymphocytes # (Manual) Monocytes # (Manual) Eosinophils # (Manual) PT INR Fibrinogen dRVVT Confirm Interp Factor V Activity POC ABG pH POC ABG pCO2 POC ABG pO2 Sodium Potassium 3.3 L D Chloride Carbon Dioxide BUN 61 H Creatinine 1.9 H Glucose 114 H POC Glucose 115 H Lactic Acid Calcium Phosphorus 1.80 L D Magnesium Direct Bilirubin AST ALT Alkaline Phosphatase Troponin T C-Reactive Protein Total Protein Albumin Prealbumin Triglycerides Cholesterol LDL Cholesterol Direct HDL Cholesterol Urine pH Urine WBC (Auto) Urine Creatinine Urine Total Protein Vancomycin Trough Rheumatoid Factor Complement C4 Miscellaneous Test Crossmatch 11/01/16 11/01/16 11/01/16 12:29 18:23 23:58 WBC RBC Hgb Hct MCV MCH MCHC RDW Plt Count Lymph % (Auto) [place] % (Auto) Lymph # [place] # Baso # Seg Neutrophils % Seg Neuts % (Manual) Lymphocytes % (Manual) Monocytes % (Manual) Eosinophils % (Manual) Basophils % (Manual) Nucleated RBC % Seg Neutrophils # Seg Neutrophils # Man Lymphocytes # (Manual) Monocytes # (Manual) Eosinophils # (Manual) PT INR Fibrinogen dRVVT Confirm Interp Factor V Activity POC ABG pH POC ABG pCO2 POC ABG pO2 Sodium Potassium Chloride Carbon Dioxide BUN Creatinine Glucose POC Glucose 142 H 143 H 128 H Lactic Acid Calcium Phosphorus Magnesium Direct Bilirubin AST ALT Alkaline Phosphatase Troponin T C-Reactive Protein Total Protein Albumin Prealbumin Triglycerides Cholesterol LDL Cholesterol Direct HDL Cholesterol Urine pH Urine WBC (Auto) Urine Creatinine Urine Total Protein Vancomycin Trough Rheumatoid Factor Complement C4 Miscellaneous Test Crossmatch 11/02/16 11/02/16 11/02/16 04:16 05:29 11:58 WBC RBC Hgb Hct MCV MCH MCHC RDW Plt Count Lymph % (Auto) [place] % (Auto) Lymph # [place] # Baso # Seg Neutrophils % Seg Neuts % (Manual) Lymphocytes % (Manual) Monocytes % (Manual) Eosinophils % (Manual) Basophils % (Manual) Nucleated RBC % Seg Neutrophils # Seg Neutrophils # Man Lymphocytes # (Manual) Monocytes # (Manual) Eosinophils # (Manual) PT INR Fibrinogen dRVVT Confirm Interp Factor V Activity POC ABG pH POC ABG pCO2 POC ABG pO2 Sodium Potassium 3.1 L Chloride Carbon Dioxide BUN 73 H Creatinine 2.3 H Glucose 112 H POC Glucose 135 H 149 H Lactic Acid Calcium Phosphorus Magnesium Direct Bilirubin AST ALT Alkaline Phosphatase Troponin T C-Reactive Protein Total Protein Albumin Prealbumin Triglycerides Cholesterol LDL Cholesterol Direct HDL Cholesterol Urine pH Urine WBC (Auto) Urine Creatinine Urine Total Protein Vancomycin Trough Rheumatoid Factor Complement C4 Miscellaneous Test Crossmatch 11/02/16 11/02/16 11/03/16 17:42 22:54 06:00 WBC RBC Hgb Hct MCV MCH MCHC RDW Plt Count Lymph % (Auto) [place] % (Auto) Lymph # [place] # Baso # Seg Neutrophils % Seg Neuts % (Manual) Lymphocytes % (Manual) Monocytes % (Manual) Eosinophils % (Manual) Basophils % (Manual) Nucleated RBC % Seg Neutrophils # Seg Neutrophils # Man Lymphocytes # (Manual) Monocytes # (Manual) Eosinophils # (Manual) PT INR Fibrinogen dRVVT Confirm Interp Factor V Activity POC ABG pH POC ABG pCO2 POC ABG pO2 Sodium Potassium Chloride 96.7 L Carbon Dioxide BUN 41 H Creatinine 1.5 H Glucose 145 H POC Glucose 182 H 115 H Lactic Acid Calcium Phosphorus 1.60 L D Magnesium 1.50 L Direct Bilirubin AST ALT Alkaline Phosphatase Troponin T C-Reactive Protein Total Protein Albumin Prealbumin Triglycerides Cholesterol LDL Cholesterol Direct HDL Cholesterol Urine pH Urine WBC (Auto) Urine Creatinine Urine Total Protein Vancomycin Trough Rheumatoid Factor Complement C4 Miscellaneous Test Crossmatch 11/03/16 11/03/16 11/03/16 11:53 17:45 23:37 WBC RBC Hgb Hct MCV MCH MCHC RDW Plt Count Lymph % (Auto) [place] % (Auto) Lymph # [place] # Baso # Seg Neutrophils % Seg Neuts % (Manual) Lymphocytes % (Manual) Monocytes % (Manual) Eosinophils % (Manual) Basophils % (Manual) Nucleated RBC % Seg Neutrophils # Seg Neutrophils # Man Lymphocytes # (Manual) Monocytes # (Manual) Eosinophils # (Manual) PT INR Fibrinogen dRVVT Confirm Interp Factor V Activity POC ABG pH POC ABG pCO2 POC ABG pO2 Sodium Potassium Chloride Carbon Dioxide BUN Creatinine Glucose POC Glucose 131 H 134 H 113 H Lactic Acid Calcium Phosphorus Magnesium Direct Bilirubin AST ALT Alkaline Phosphatase Troponin T C-Reactive Protein Total Protein Albumin Prealbumin Triglycerides Cholesterol LDL Cholesterol Direct HDL Cholesterol Urine pH Urine WBC (Auto) Urine Creatinine Urine Total Protein Vancomycin Trough Rheumatoid Factor Complement C4 Miscellaneous Test Crossmatch 11/04/16 11/04/16 11/04/16 05:41 06:00 12:10 WBC RBC Hgb Hct MCV MCH MCHC RDW Plt Count Lymph % (Auto) [place] % (Auto) Lymph # [place] # Baso # Seg Neutrophils % Seg Neuts % (Manual) Lymphocytes % (Manual) Monocytes % (Manual) Eosinophils % (Manual) Basophils % (Manual) Nucleated RBC % Seg Neutrophils # Seg Neutrophils # Man Lymphocytes # (Manual) Monocytes # (Manual) Eosinophils # (Manual) PT INR Fibrinogen dRVVT Confirm Interp Factor V Activity POC ABG pH POC ABG pCO2 POC ABG pO2 Sodium Potassium Chloride 96.7 L Carbon Dioxide BUN 52 H Creatinine 1.9 H Glucose 126 H POC Glucose 137 H 191 H Lactic Acid Calcium Phosphorus Magnesium Direct Bilirubin AST ALT Alkaline Phosphatase Troponin T C-Reactive Protein Total Protein Albumin Prealbumin Triglycerides Cholesterol LDL Cholesterol Direct HDL Cholesterol Urine pH Urine WBC (Auto) Urine Creatinine Urine Total Protein Vancomycin Trough Rheumatoid Factor Complement C4 Miscellaneous Test Crossmatch 11/04/16 11/05/16 11/05/16 22:57 03:10 05:10 WBC RBC Hgb Hct MCV MCH MCHC RDW Plt Count Lymph % (Auto) [place] % (Auto) Lymph # [place] # Baso # Seg Neutrophils % Seg Neuts % (Manual) Lymphocytes % (Manual) Monocytes % (Manual) Eosinophils % (Manual) Basophils % (Manual) Nucleated RBC % Seg Neutrophils # Seg Neutrophils # Man Lymphocytes # (Manual) Monocytes # (Manual) Eosinophils # (Manual) PT INR Fibrinogen dRVVT Confirm Interp Factor V Activity POC ABG pH POC ABG pCO2 POC ABG pO2 Sodium 136 L Potassium Chloride 97.2 L Carbon Dioxide BUN 32 H Creatinine 1.3 H Glucose 123 H POC Glucose 125 H 108 H Lactic Acid Calcium 7.8 L Phosphorus Magnesium Direct Bilirubin AST ALT Alkaline Phosphatase Troponin T C-Reactive Protein Total Protein Albumin Prealbumin Triglycerides Cholesterol LDL Cholesterol Direct HDL Cholesterol Urine pH Urine WBC (Auto) Urine Creatinine Urine Total Protein Vancomycin Trough Rheumatoid Factor Complement C4 Miscellaneous Test Crossmatch 11/05/16 11/05/16 11/05/16 12:23 13:09 13:25 WBC RBC Hgb Hct MCV MCH MCHC RDW Plt Count Lymph % (Auto) [place] % (Auto) Lymph # [place] # Baso # Seg Neutrophils % Seg Neuts % (Manual) Lymphocytes % (Manual) Monocytes % (Manual) Eosinophils % (Manual) Basophils % (Manual) Nucleated RBC % Seg Neutrophils # Seg Neutrophils # Man Lymphocytes # (Manual) Monocytes # (Manual) Eosinophils # (Manual) PT INR Fibrinogen dRVVT Confirm Interp Factor V Activity POC ABG pH POC ABG pCO2 POC ABG pO2 Sodium Potassium Chloride Carbon Dioxide BUN Creatinine Glucose POC Glucose 124 H Lactic Acid Calcium Phosphorus Magnesium Direct Bilirubin AST ALT Alkaline Phosphatase Troponin T C-Reactive Protein 11.40 H Total Protein Albumin Prealbumin Triglycerides Cholesterol LDL Cholesterol Direct HDL Cholesterol Urine pH 9.0 H Urine WBC (Auto) Urine Creatinine Urine Total Protein Vancomycin Trough Rheumatoid Factor Complement C4 Miscellaneous Test Crossmatch 11/05/16 11/05/16 11/05/16 13:25 17:54 23:42 WBC RBC Hgb Hct MCV MCH MCHC RDW Plt Count Lymph % (Auto) [place] % (Auto) Lymph # [place] # Baso # Seg Neutrophils % Seg Neuts % (Manual) Lymphocytes % (Manual) Monocytes % (Manual) Eosinophils % (Manual) Basophils % (Manual) Nucleated RBC % Seg Neutrophils # Seg Neutrophils # Man Lymphocytes # (Manual) Monocytes # (Manual) Eosinophils # (Manual) PT INR Fibrinogen dRVVT Confirm Interp Factor V Activity POC ABG pH POC ABG pCO2 POC ABG pO2 Sodium Potassium Chloride Carbon Dioxide BUN Creatinine Glucose POC Glucose 114 H 134 H Lactic Acid Calcium Phosphorus Magnesium Direct Bilirubin AST ALT Alkaline Phosphatase Troponin T C-Reactive Protein Total Protein Albumin Prealbumin Triglycerides Cholesterol LDL Cholesterol Direct HDL Cholesterol Urine pH Urine WBC (Auto) Urine Creatinine Urine Total Protein Vancomycin Trough Rheumatoid Factor Complement C4 Miscellaneous Test Flexitest 1 H Crossmatch 11/06/16 11/06/16 11/06/16 04:56 06:25 06:25 WBC RBC 2.50 L Hgb 7.3 L Hct 22.5 L MCV MCH MCHC RDW 16.9 H Plt Count Lymph % (Auto) [place] % (Auto) 10.5 H Lymph # [place] # 1.1 H Baso # Seg Neutrophils % Seg Neuts % (Manual) Lymphocytes % (Manual) Monocytes % (Manual) Eosinophils % (Manual) Basophils % (Manual) Nucleated RBC % Seg Neutrophils # Seg Neutrophils # Man Lymphocytes # (Manual) Monocytes # (Manual) Eosinophils # (Manual) PT INR Fibrinogen dRVVT Confirm Interp Factor V Activity POC ABG pH POC ABG pCO2 POC ABG pO2 Sodium Potassium 5.1 H Chloride 95.9 L Carbon Dioxide BUN 52 H Creatinine 1.8 H Glucose 117 H POC Glucose 120 H Lactic Acid Calcium Phosphorus Magnesium Direct Bilirubin AST 103 H ALT 77 H Alkaline Phosphatase 285 H Troponin T C-Reactive Protein Total Protein 6.2 L Albumin 1.8 L Prealbumin 0.180 L Triglycerides Cholesterol LDL Cholesterol Direct HDL Cholesterol Urine pH Urine WBC (Auto) Urine Creatinine Urine Total Protein Vancomycin Trough Rheumatoid Factor Complement C4 Miscellaneous Test Crossmatch 11/06/16 11/06/16 11/06/16 11:56 17:14 23:52 WBC RBC Hgb Hct MCV MCH MCHC RDW Plt Count Lymph % (Auto) [place] % (Auto) Lymph # [place] # Baso # Seg Neutrophils % Seg Neuts % (Manual) Lymphocytes % (Manual) Monocytes % (Manual) Eosinophils % (Manual) Basophils % (Manual) Nucleated RBC % Seg Neutrophils # Seg Neutrophils # Man Lymphocytes # (Manual) Monocytes # (Manual) Eosinophils # (Manual) PT INR Fibrinogen dRVVT Confirm Interp Factor V Activity POC ABG pH POC ABG pCO2 POC ABG pO2 Sodium Potassium Chloride Carbon Dioxide BUN Creatinine Glucose POC Glucose 141 H 125 H 130 H Lactic Acid Calcium Phosphorus Magnesium Direct Bilirubin AST ALT Alkaline Phosphatase Troponin T C-Reactive Protein Total Protein Albumin Prealbumin Triglycerides Cholesterol LDL Cholesterol Direct HDL Cholesterol Urine pH Urine WBC (Auto) Urine Creatinine Urine Total Protein Vancomycin Trough Rheumatoid Factor Complement C4 Miscellaneous Test Crossmatch 11/07/16 11/07/16 11/07/16 06:30 06:30 09:37 WBC RBC 2.18 L Hgb 6.3 L Hct 19.7 L* MCV MCH MCHC RDW 16.8 H Plt Count Lymph % (Auto) [place] % (Auto) 10.0 H Lymph # [place] # 1.0 H Baso # Seg Neutrophils % Seg Neuts % (Manual) Lymphocytes % (Manual) Monocytes % (Manual) Eosinophils % (Manual) Basophils % (Manual) Nucleated RBC % Seg Neutrophils # Seg Neutrophils # Man Lymphocytes # (Manual) Monocytes # (Manual) Eosinophils # (Manual) PT INR Fibrinogen dRVVT Confirm Interp Factor V Activity POC ABG pH POC ABG pCO2 POC ABG pO2 Sodium 135 L Potassium Chloride 95.6 L Carbon Dioxide BUN 70 H Creatinine 2.0 H Glucose 126 H POC Glucose Lactic Acid Calcium Phosphorus Magnesium Direct Bilirubin AST ALT Alkaline Phosphatase Troponin T C-Reactive Protein Total Protein Albumin Prealbumin Triglycerides Cholesterol LDL Cholesterol Direct HDL Cholesterol Urine pH Urine WBC (Auto) Urine Creatinine Urine Total Protein Vancomycin Trough Rheumatoid Factor Complement C4 Miscellaneous Test Crossmatch See Detail 11/07/16 11/07/16 11/07/16 12:52 18:51 21:26 WBC RBC Hgb Hct MCV MCH MCHC RDW Plt Count Lymph % (Auto) [place] % (Auto) Lymph # [place] # Baso # Seg Neutrophils % Seg Neuts % (Manual) Lymphocytes % (Manual) Monocytes % (Manual) Eosinophils % (Manual) Basophils % (Manual) Nucleated RBC % Seg Neutrophils # Seg Neutrophils # Man Lymphocytes # (Manual) Monocytes # (Manual) Eosinophils # (Manual) PT INR Fibrinogen dRVVT Confirm Interp Factor V Activity POC ABG pH 7.523 H POC ABG pCO2 34.6 L POC ABG pO2 53 L Sodium Potassium Chloride Carbon Dioxide BUN Creatinine Glucose POC Glucose 142 H 155 H Lactic Acid Calcium Phosphorus Magnesium Direct Bilirubin AST ALT Alkaline Phosphatase Troponin T C-Reactive Protein Total Protein Albumin Prealbumin Triglycerides Cholesterol LDL Cholesterol Direct HDL Cholesterol Urine pH Urine WBC (Auto) Urine Creatinine Urine Total Protein Vancomycin Trough Rheumatoid Factor Complement C4 Miscellaneous Test Crossmatch 11/07/16 11/08/16 11/08/16 21:34 13:03 23:37 WBC RBC 2.63 L Hgb 7.7 L Hct 22.7 L MCV MCH MCHC RDW 17.0 H Plt Count Lymph % (Auto) [place] % (Auto) Lymph # [place] # Baso # Seg Neutrophils % Seg Neuts % (Manual) Lymphocytes % (Manual) Monocytes % (Manual) Eosinophils % (Manual) Basophils % (Manual) Nucleated RBC % Seg Neutrophils # Seg Neutrophils # Man Lymphocytes # (Manual) Monocytes # (Manual) Eosinophils # (Manual) PT INR Fibrinogen dRVVT Confirm Interp Factor V Activity POC ABG pH 7.478 H POC ABG pCO2 34.0 L POC ABG pO2 50 L Sodium Potassium Chloride Carbon Dioxide BUN Creatinine Glucose POC Glucose 113 H Lactic Acid Calcium Phosphorus Magnesium Direct Bilirubin AST ALT Alkaline Phosphatase Troponin T C-Reactive Protein Total Protein Albumin Prealbumin Triglycerides Cholesterol LDL Cholesterol Direct HDL Cholesterol Urine pH Urine WBC (Auto) Urine Creatinine Urine Total Protein Vancomycin Trough Rheumatoid Factor Complement C4 Miscellaneous Test Crossmatch 11/09/16 11/09/16 04:35 10:15 WBC RBC 2.68 L Hgb 7.8 L Hct 23.3 L MCV MCH MCHC RDW 17.0 H Plt Count Lymph % (Auto) [place] % (Auto) 12.1 H Lymph # [place] # 1.1 H Baso # Seg Neutrophils % Seg Neuts % (Manual) Lymphocytes % (Manual) Monocytes % (Manual) Eosinophils % (Manual) Basophils % (Manual) Nucleated RBC % Seg Neutrophils # Seg Neutrophils # Man Lymphocytes # (Manual) Monocytes # (Manual) Eosinophils # (Manual) PT INR Fibrinogen dRVVT Confirm Interp Factor V Activity POC ABG pH POC ABG pCO2 POC ABG pO2 Sodium Potassium Chloride Carbon Dioxide BUN 51 H Creatinine 1.8 H Glucose POC Glucose Lactic Acid Calcium 8.3 L Phosphorus Magnesium Direct Bilirubin AST ALT Alkaline Phosphatase Troponin T C-Reactive Protein Total Protein Albumin Prealbumin Triglycerides Cholesterol LDL Cholesterol Direct HDL Cholesterol Urine pH Urine WBC (Auto) Urine Creatinine Urine Total Protein Vancomycin Trough Rheumatoid Factor Complement C4 Miscellaneous Test Crossmatch Allied health notes reviewed: RT
[2016-11-09] MEDS ORDERED: NACL 0.9% 1000 ML 2,000 ML ONE (11:38)
[2016-11-09] MEDS: MORPHINE IV PRN (12:51)
[2016-11-09] MEDS: HEPARIN IV PRN (13:04)
[2016-11-09] MEDS: HEPARIN 10,000 UNITS/10 ML IV PRN (13:08)
[2016-11-09] MEDS: QUESTRAN PO SCH (14:30)
--- NOTE | 2016-11-09 14:45 | Progress Note ---
Assessment and Plan - Patient Problems (1) Acute respiratory failure with hypoxia Current Visit: Yes Status: Acute (2) Dislodged gastrostomy tube Current Visit: Yes Status: Acute Plan to address problem: continue current care agree with f/u CT scan Subjective Date of service: 11/09/16 Patient Reports: Positive: other (on dialysis) Objective Vital Signs - 12hr 11/09/16 11/09/16 11/09/16 03:00 03:57 04:00 Temperature 99.0 F Pulse Rate 107 H 114 H Pulse Rate [ From Monitor] Pulse Rate [ Right Dorsalis Pedis] Respiratory 39 H 40 H Rate Respiratory Rate [Left Hand ] Blood Pressure 185/95 177/90 O2 Sat by Pulse 95 Oximetry O2 Sat by Pulse Oximetry [ Anterior Bilateral Throughout] O2 Sat by Pulse Oximetry [ Assessment] 11/09/16 11/09/16 11/09/16 05:00 05:02 06:00 Temperature Pulse Rate 111 H 111 H 99 H Pulse Rate [ From Monitor] Pulse Rate [ Right Dorsalis Pedis] Respiratory 39 H 25 H Rate Respiratory Rate [Left Hand ] Blood Pressure 162/70 162/70 142/73 O2 Sat by Pulse Oximetry O2 Sat by Pulse Oximetry [ Anterior Bilateral Throughout] O2 Sat by Pulse Oximetry [ Assessment] 11/09/16 11/09/16 11/09/16 06:30 07:00 07:30 Temperature Pulse Rate 108 H 107 H 113 H Pulse Rate [ From Monitor] Pulse Rate [ Right Dorsalis Pedis] Respiratory 43 H 38 H 30 H Rate Respiratory Rate [Left Hand ] Blood Pressure 142/73 155/84 155/84 O2 Sat by Pulse 100 95 93 Oximetry O2 Sat by Pulse Oximetry [ Anterior Bilateral Throughout] O2 Sat by Pulse Oximetry [ Assessment] 11/09/16 11/09/16 11/09/16 08:00 08:30 09:00 Temperature 100.5 F H Pulse Rate 106 H 109 H 109 H Pulse Rate [ 110 H From Monitor] Pulse Rate [ Right Dorsalis Pedis] Respiratory 38 H 40 H 39 H Rate Respiratory Rate [Left Hand ] Blood Pressure 167/93 155/84 176/102 O2 Sat by Pulse 97 97 98 Oximetry O2 Sat by Pulse Oximetry [ Anterior Bilateral Throughout] O2 Sat by Pulse 96 Oximetry [ Assessment] 11/09/16 11/09/16 11/09/16 09:26 09:30 09:41 Temperature Pulse Rate 112 H 113 H Pulse Rate [ From Monitor] Pulse Rate [ Right Dorsalis Pedis] Respiratory 43 H Rate Respiratory Rate [Left Hand ] Blood Pressure 176/102 176/102 O2 Sat by Pulse 94 96 Oximetry O2 Sat by Pulse Oximetry [ Anterior Bilateral Throughout] O2 Sat by Pulse Oximetry [ Assessment] 11/09/16 11/09/16 11/09/16 10:00 10:30 11:00 Temperature Pulse Rate 105 H 114 H 115 H Pulse Rate [ From Monitor] Pulse Rate [ Right Dorsalis Pedis] Respiratory 27 H 38 H 47 H Rate Respiratory 22 Rate [Left Hand ] Blood Pressure 131/69 131/69 130/79 O2 Sat by Pulse 100 99 98 Oximetry O2 Sat by Pulse Oximetry [ Anterior Bilateral Throughout] O2 Sat by Pulse Oximetry [ Assessment] 11/09/16 11/09/16 11/09/16 11:30 11:45 12:00 Temperature 100.5 F H 100.4 F H Pulse Rate 112 H 116 H 119 H Pulse Rate [ From Monitor] Pulse Rate [ 115 H Right Dorsalis Pedis] Respiratory 39 H 39 H Rate Respiratory Rate [Left Hand ] Blood Pressure 154/83 162/88 177/96 O2 Sat by Pulse 97 99 Oximetry O2 Sat by Pulse 98 Oximetry [ Anterior Bilateral Throughout] O2 Sat by Pulse Oximetry [ Assessment] 11/09/16 11/09/16 11/09/16 12:15 12:30 12:44 Temperature Pulse Rate 120 H 121 H 123 H Pulse Rate [ From Monitor] Pulse Rate [ Right Dorsalis Pedis] Respiratory 40 H Rate Respiratory Rate [Left Hand ] Blood Pressure 184/96 195/106 195/106 O2 Sat by Pulse 98 Oximetry O2 Sat by Pulse Oximetry [ Anterior Bilateral Throughout] O2 Sat by Pulse Oximetry [ Assessment] 11/09/16 11/09/16 11/09/16 12:45 12:51 13:00 Temperature Pulse Rate 121 H 118 H Pulse Rate [ From Monitor] Pulse Rate [ Right Dorsalis Pedis] Respiratory 38 H 36 H Rate Respiratory Rate [Left Hand ] Blood Pressure 190/103 163/91 O2 Sat by Pulse 99 Oximetry O2 Sat by Pulse Oximetry [ Anterior Bilateral Throughout] O2 Sat by Pulse Oximetry [ Assessment] 11/09/16 11/09/16 11/09/16 13:15 13:30 13:45 Temperature Pulse Rate 117 H 110 H 100 H Pulse Rate [ From Monitor] Pulse Rate [ Right Dorsalis Pedis] Respiratory 21 Rate Respiratory Rate [Left Hand ] Blood Pressure 142/67 150/92 152/92 O2 Sat by Pulse 99 Oximetry O2 Sat by Pulse Oximetry [ Anterior Bilateral Throughout] O2 Sat by Pulse Oximetry [ Assessment] 11/09/16 11/09/16 11/09/16 14:00 14:01 14:15 Temperature Pulse Rate 102 H 100 H 102 H Pulse Rate [ From Monitor] Pulse Rate [ Right Dorsalis Pedis] Respiratory 22 Rate Respiratory Rate [Left Hand ] Blood Pressure 162/95 162/95 156/93 O2 Sat by Pulse 99 Oximetry O2 Sat by Pulse Oximetry [ Anterior Bilateral Throughout] O2 Sat by Pulse Oximetry [ Assessment] 11/09/16 14:18 Temperature Pulse Rate 103 H Pulse Rate [ From Monitor] Pulse Rate [ Right Dorsalis Pedis] Respiratory Rate Respiratory Rate [Left Hand ] Blood Pressure 163/101 O2 Sat by Pulse Oximetry O2 Sat by Pulse Oximetry [ Anterior Bilateral Throughout] O2 Sat by Pulse Oximetry [ Assessment] - Abdomen soft, not tender, not distended, other (Port site in RUQ & G tube site with persistent draiange ; minimal output from RLQ site) - Labs 11/09/16 04:35 11/09/16 10:15 Diabetes panel 11/09/16 Range/Units 10:15 Sodium 138 (137-145) mmol/L Potassium 4.0 (3.6-5.0) mmol/L Chloride 99.2 (98-107) mmol/L Carbon Dioxide 26 (22-30) mmol/L BUN 51 H (7-17) mg/dL Creatinine 1.8 H (0.7-1.2) mg/dL Glucose 84 (65-100) mg/dL Calcium 8.3 L (8.4-10.2) mg/dL Calcium panel 11/09/16 Range/Units 10:15 Calcium 8.3 L (8.4-10.2) mg/dL Pituitary panel 11/09/16 Range/Units 10:15 Sodium 138 (137-145) mmol/L Potassium 4.0 (3.6-5.0) mmol/L Chloride 99.2 (98-107) mmol/L Carbon Dioxide 26 (22-30) mmol/L BUN 51 H (7-17) mg/dL Creatinine 1.8 H (0.7-1.2) mg/dL Glucose 84 (65-100) mg/dL Calcium 8.3 L (8.4-10.2) mg/dL Adrenal panel 11/09/16 Range/Units 10:15 Sodium 138 (137-145) mmol/L Potassium 4.0 (3.6-5.0) mmol/L Chloride 99.2 (98-107) mmol/L Carbon Dioxide 26 (22-30) mmol/L BUN 51 H (7-17) mg/dL Creatinine 1.8 H (0.7-1.2) mg/dL Glucose 84 (65-100) mg/dL Calcium 8.3 L (8.4-10.2) mg/dL
--- NOTE | 2016-11-09 18:05 | Cat Scan Report ---
FINAL REPORT EXAM: CT ABD AND PELVIS WO CONTRAST HISTORY: suspect communication between GI tract and RLQ wound TECHNIQUE: Serial axial images through the abdomen and pelvis with coronal and sagittal reconstruction. PRIORS: CT abdomen pelvis from 10/2016. FINDINGS: There are bilateral pleural effusions which are incompletely evaluated this study. There is consolidation in the posterior aspect of the lung bases. Low-density ascites is seen in the perihepatic space and in the pelvis. No focal hepatic lesion is identified. Metallic tip feeding tube courses to the stomach. Gallbladder is surgically absent. Pancreas appears normal. Spleen appears normal. Adrenal glands and kidneys appear normal. Aorta is normal in caliber. Bladder is decompressed by Herndon catheter. No gross abnormality is seen in the uterus or adnexa. There is not evidence of bowel obstruction. Contrast media is seen in the colon and distal small bowel. There is a hypodense focus in the subcutaneous fat in the anterior abdominal wall that measures approximately 5.2 x 1.7 centimeters in axial dimension. This can be seen for example series 2, image 237. There is suggestion of tracts that extend from this region to the cutaneous surface. This can be seen image 257 and 199. There is suggestion of a fusion of bowel to the anterior abdominal wall deep to the collection. No contrast is seen within the collection. No acute osseous abnormality is identified. IMPRESSION: 1. Hypodense collection in the subcutaneous fat adjacent to the anterior abdominal wall on the right side is re-identified. There is suggestion of tracts leading from this to the cutaneous surface. This could indicate fistula. No contrast is seen within the collection at this time, but there is bowel in the anterior aspect of the abdomen which may be adhesed to the anterior abdominal wall deep to the collection. This can be further assessed with fluoroscopic fistulagram if indicated. 2. Low-density ascites is seen in the abdomen and pelvis. This appears similar to the prior study. 3. Bilateral pleural effusion. These are incompletely evaluated in this study. 4. Consolidation is seen in the dependent portion of the lungs. This may be secondary to atelectasis, but infection is not excluded.
[2016-11-09] MEDS: D50W (25GM) Syringe IV PRN (18:57)
[2016-11-09] MEDS: VANCOMYCIN/NS 1 GM/250 ML 1 GM/250 ML BAG IV SCH (20:32)
[2016-11-10] MEDS: HumuLIN R SUB-Q SCH ×3 (05:55→17:09)
[2016-11-10] MEDS: LOPRESSOR PO SCH ×4 (06:11→23:04)
[2016-11-10 07:35] LABS: BUN/Creatinine Ratio 21.53; Calcium 7.8 mg/dL (8.4-10.2)
--- NOTE | 2016-11-10 08:36 | Progress Note ---
Assessment and Plan Assessment and plan: 46-year-old woman with a history of hypertension, diabetes, asthma, hyperlipidemia, chronic kidney disease and anxiety , who was brought in by family because, she couldn't get her words out, her face was also twisted, she was admitted for acute CVA and accelerated hypertension, she had a hx of poor adherence with her medications, and uncontrolled htn. Patient's blood pressure systolically on admission was noted be greater than 260. TPA was started but this was discontinued after 5 minutes because her blood pressure became uncontrolled. The TPA was not initiated again because the patient was outside the TPA window. Fever Reconsulted infectious disease, has recently completed antibiotics Spoke with Dr. Eli of infectious disease. chest x-ray, blood cultures were unremarkable, urine cx growing E cloacea, ID and sens to follow,. fup blood cultures, patient does have a PICC line and a vasc cath, this may be possible etiology of infection, may need to consider exchanging them -still having high fevers, continue levaquin and vancomycin, started on 11/07 -Severe Sepsis with septic shock, recurrent. Patient with multiple episodes of sepsis. Initial episode due to presumed aspiration pneumonia and septic episode on 09/23 from candidemia then a third episode from peritonitis from gastric perforation from dislodged PEG , there was an abscess in the abdomen present at that time that was draining pus. +/-UTI. The latest episode was related to surgical site infection. Fevers have now resolved. Continue antibiotics per ID. Surgical wound infection/gram-negative sepsis/candidemia/peritonitis PEG has been removed Has already completed 14 days of abx and antifungals, ID input appreciated She will need to be on tube feeds through NG tube for a month, and then either a gastrostomy or jejunostomy tube replaced after her GI wounds have healed and infection is cleared -continue wound care to ostomy sites For CT scan of abdomen today JUANITA, now ESRD Likely due to vasomotor nephropathy and ATN given sepsis Nephrology input appreciated, continue hemodialysis Acute CVA with infarct. sp TPA Continue neuro checks. Neurology input appreciated, CT shows continued evolution of left MCA infarct with slight mass effect and edema, and there is no hemorrhage - PRINCE showed hyperdynamic with ef of 75%, neither clot nor septal defect seen - MRA Brain shows near complete occlusion of M2 and M3 of the left MCA - Repeat CT scan done on 7/23, shows stable findings - carotid doppler negative - Echo shows preserved systolic function but does show some left ventricular diastolic dysfunction - continue asa and statin for secondary ppx Persistent vegetative state This patient's needs placement at either hospice or SNF -She was denied for LTACH Acute hypoxic respiratory failure requiring MV >96hrs Status post tracheostomy, continue to wean off vent, has been tolerating T piece Nosocomial acquired aspiration pneumonia/sepsis/UTI Completed a course of antibiotics Asthma/COPD exacerbation Now has trach Acute Toxic Metabolic encephalopathy. Multitifactorial, mostly secondary to evolution of CVA Hypertensive Emergency Continue current medications Paroxysmal atrial fibrillation with rapid ventricular rate, failed cardioversion Continue current medications, Not a candidate for anticoagulation secondary to anemia thrombocytopenia and massive CVA Hypokalemia/Hypomagnesemia/hypophosphatemia. Replete electrolytes as needed. Diabetes type 2. Continue sliding-scale regular insulin and Accu-Cheks. Hyperlipidemia. Continue statin Nutrition continue tube feeds Anemia requiring multiple transfusions/acute blood loss Has received total 13 units of PRBC this admission. Will continue to transfuse to keep Hemoglobin above 7 Case discussed with JAVIER Phelan. her POA is her Brother, Jam [phone] Dispo. Very poor prognosis. Plan for SNIF placement, she was ready denied by LTAC History Interval history: Patient has prolonged stay Hospitalist Physical - Physical exam Narrative exam: Gen appearance: Trach, not in acute distress HEENT: Atraumatic Neck: Tracheostomy Lungs: Coarse breath sounds, no crackles or wheezes Heart :S1 and S2 irregular, no murmurs, rubs or gallop Abdomen: Soft, non tender, ostomy bags Extremities : bilateral edema, upper and lower ext Neuro:Unresponsive, Does not follow commands - Constitutional Vitals: Temp Pulse Resp BP Pulse Ox 100.3 F H 86 17 145/73 100 11/10/16 04:00 11/10/16 07:00 11/10/16 07:00 11/10/16 07:00 11/10/16 07:00 General appearance: Present: no acute distress, obese, other (on vent, non- responsive) Results - Labs CBC & Chem 7: 11/09/16 04:35 11/10/16 07:00 Labs: Laboratory Last Values WBC 9.2 K/mm3 (4.5-11.0) 11/09/16 04:35 RBC 2.68 M/mm3 (3.65-5.03) L 11/09/16 04:35 Hgb 7.8 gm/dl (10.1-14.3) L 11/09/16 04:35 Hct 23.3 % (30.3-42.9) L 11/09/16 04:35 MCV 87 fl (79-97) 11/09/16 04:35 MCH 29 pg (28-32) 11/09/16 04:35 MCHC 34 % (30-34) 11/09/16 04:35 RDW 17.0 % (13.2-15.2) H 11/09/16 04:35 Plt Count 247 K/mm3 (140-440) 11/09/16 04:35 Lymph % (Auto) 21.5 % (13.4-35.0) 11/09/16 04:35 [place] % (Auto) 12.1 % (0.0-7.3) H 11/09/16 04:35 Eos % (Auto) 1.7 % (0.0-4.3) 11/09/16 04:35 Baso % (Auto) 1.0 % (0.0-1.8) 11/09/16 04:35 Lymph # 2.0 K/mm3 (1.2-5.4) 11/09/16 04:35 [place] # 1.1 K/mm3 (0.0-0.8) H 11/09/16 04:35 Eos # 0.2 K/mm3 (0.0-0.4) 11/09/16 04:35 Baso # 0.1 K/mm3 (0.0-0.1) 11/09/16 04:35 Add Manual Diff Complete 10/27/16 06:30 Total Counted 100 10/27/16 06:30 Seg Neutrophils % 63.7 % (40.0-70.0) 11/09/16 04:35 Seg Neuts % (Manual) 78.0 % (40.0-70.0) H 10/27/16 06:30 Band Neutrophils % 0 % 10/27/16 06:30 Lymphocytes % (Manual) 14.0 % (13.4-35.0) 10/27/16 06:30 Reactive Lymphs % (Man) 0 % 10/27/16 06:30 Monocytes % (Manual) 7.0 % (0.0-7.3) 10/27/16 06:30 Eosinophils % (Manual) 0 % (0.0-4.3) 10/27/16 06:30 Basophils % (Manual) 1.0 % (0.0-1.8) 10/27/16 06:30 Metamyelocytes % 0 % 10/27/16 06:30 Myelocytes % 0 % 10/27/16 06:30 Promyelocytes % 0 % 10/27/16 06:30 Blast Cells % 0 % 10/27/16 06:30 Nucleated RBC % 2.0 % (0.0-0.9) H 10/27/16 06:30 Seg Neutrophils # 5.8 K/mm3 (1.8-7.7) 11/09/16 04:35 Seg Neutrophils # Man 10.8 K/mm3 (1.8-7.7) H 10/27/16 06:30 Band Neutrophils # 0.0 K/mm3 10/27/16 06:30 Lymphocytes # (Manual) 1.9 K/mm3 (1.2-5.4) 10/27/16 06:30 Abs React Lymphs (Man) 0.0 K/mm3 10/27/16 06:30 Monocytes # (Manual) 1.0 K/mm3 (0.0-0.8) H 10/27/16 06:30 Eosinophils # (Manual) 0.0 K/mm3 (0.0-0.4) 10/27/16 06:30 Basophils # (Manual) 0.1 K/mm3 (0.0-0.1) 10/27/16 06:30 Metamyelocytes # 0.0 K/mm3 10/27/16 06:30 Myelocytes # 0.0 K/mm3 10/27/16 06:30 Promyelocytes # 0.0 K/mm3 10/27/16 06:30 Blast Cells # 0.0 K/mm3 10/27/16 06:30 Pathologist Review 09/13/16 04:00 WBC Morphology Not Reportable 10/27/16 06:30 Hypersegmented Neuts Not Reportable 10/27/16 06:30 Hyposegmented Neuts Not Reportable 10/27/16 06:30 Hypogranular Neuts Not Reportable 10/27/16 06:30 Smudge Cells Not Reportable 10/27/16 06:30 Toxic Granulation Not Reportable 10/27/16 06:30 Toxic Vacuolation Not Reportable 10/27/16 06:30 Dohle Bodies Not Reportable 10/27/16 06:30 Pelger-Huet Anomaly Not Reportable 10/27/16 06:30 Jasmina Rods Not Reportable 10/27/16 06:30 Platelet Estimate Cons 10/27/16 06:30 Clumped Platelets Not Reportable 10/27/16 06:30 Plt Clumps, EDTA Not Reportable 10/27/16 06:30 Large Platelets Few 10/27/16 06:30 Giant Platelets Not Reportable 10/27/16 06:30 Platelet Satelliting Not Reportable 10/27/16 06:30 Plt Morphology Comment Not Reportable 10/27/16 06:30 RBC Morphology Not Reportable 10/27/16 06:30 Dimorphic RBCs Not Reportable 10/27/16 06:30 Polychromasia Not Reportable 10/27/16 06:30 Hypochromasia Not Reportable 10/27/16 06:30 Poikilocytosis Not Reportable 10/27/16 06:30 Anisocytosis 1+ 10/27/16 06:30 Microcytosis Not Reportable 10/27/16 06:30 Macrocytosis Not Reportable 10/27/16 06:30 Spherocytes Not Reportable 10/27/16 06:30 Pappenheimer Bodies Not Reportable 10/27/16 06:30 Sickle Cells Not Reportable 10/27/16 06:30 Target Cells Not Reportable 10/27/16 06:30 Tear Drop Cells Not Reportable 10/27/16 06:30 Ovalocytes Not Reportable 10/27/16 06:30 Stomatocytes Few 10/06/16 03:50 Helmet Cells Not Reportable 10/27/16 06:30 [place] Bodies Not Reportable 10/27/16 06:30 Addison Rings Not Reportable 10/27/16 06:30 Chuck Cells Not Reportable 10/27/16 06:30 Bite Cells Not Reportable 10/27/16 06:30 Crenated Cell Not Reportable 10/27/16 06:30 Elliptocytes Not Reportable 10/27/16 06:30 Acanthocytes (Spur) Not Reportable 10/27/16 06:30 Rouleaux Not Reportable 10/27/16 06:30 Hemoglobin C Crystals Not Reportable 10/27/16 06:30 Schistocytes Not Reportable 10/27/16 06:30 Malaria parasites Not Reportable 10/27/16 06:30 ESR > 140.0 mm/Hr (0-20) 09/08/16 11:48 Jun Bodies Not Reportable 10/27/16 06:30 Hem Pathologist Commnt No 10/27/16 06:30 PT 19.0 Sec. (12.2-14.9) H 10/09/16 03:45 INR 1.51 (0.87-1.13) H 10/09/16 03:45 APTT 33.0 Sec. (24.2-36.6) 10/09/16 03:45 Thrombin Time 16.8 Sec. (15.1-19.6) 09/03/16 00:10 Fibrinogen 750 mg/dl (211-480) H 09/08/16 11:48 Lupus Anticoagulant see below 09/12/16 09:59 LA PTT Baseline See scanned report 09/12/16 09:59 dRVVT Confirm Interp Positive (Negative) H 09/12/16 09:59 dRVVT Screen 50:50 See scanned report 09/12/16 09:59 dRVVT Mix Interpret See scanned report 09/12/16 09:59 Protein C Antigen 122 % (70-140) 09/08/16 15:35 Free Protein S 97 % normal (50-147) 09/08/16 15:35 Total Protein S 109 % (70-140) 09/08/16 15:35 Antithrombin III Ag 100 % (80-120) 09/08/16 15:35 Heparin Anti-Xa, Unfract Negative (Negative) 09/29/16 13:35 Factor V Activity 182 % (65-150) H 09/08/16 15:35 POC ABG pH 7.478 (7.35-7.45) H 11/08/16 23:37 POC ABG pCO2 34.0 (35-45) L 11/08/16 23:37 POC ABG pO2 50 (80-105) L 11/08/16 23:37 POC ABG HCO3 25.2 11/08/16 23:37 POC ABG Total CO2 26 11/08/16 23:37 POC ABG O2 Sat 88 11/08/16 23:37 POC ABG Base Excess 2 11/08/16 23:37 FiO2 28 % 11/08/16 23:37 Sodium 137 mmol/L (137-145) 11/10/16 07:00 Potassium 3.0 mmol/L (3.6-5.0) L D 11/10/16 07:00 Chloride 97.4 mmol/L (98-107) L 11/10/16 07:00 Carbon Dioxide 27 mmol/L (22-30) 11/10/16 07:00 Anion Gap 16 mmol/L 11/10/16 07:00 BUN 28 mg/dL (7-17) H 11/10/16 07:00 Creatinine 1.3 mg/dL (0.7-1.2) H 11/10/16 07:00 Estimated GFR 54 ml/min 11/10/16 07:00 BUN/Creatinine Ratio 21.53 % 11/10/16 07:00 Glucose 89 mg/dL (65-100) 11/10/16 07:00 POC Glucose 95 (70-105) 11/10/16 05:27 Osmolality 351 Mosm/kg 09/16/16 11:47 Lactic Acid 4.50 mmol/L (0.7-2.0) H* 09/28/16 07:25 Calcium 7.8 mg/dL (8.4-10.2) L 11/10/16 07:00 Phosphorus 4.40 mg/dL (2.5-4.5) 11/07/16 06:30 Magnesium 2.20 mg/dL (1.7-2.3) 11/07/16 06:30 Total Bilirubin 0.20 mg/dL (0.1-1.2) 11/06/16 06:25 Direct Bilirubin 0.3 mg/dL (0-0.2) H 10/10/16 05:00 Indirect Bilirubin 0.1 mg/dL 10/10/16 05:00 AST 103 units/L (5-40) H 11/06/16 06:25 ALT 77 units/L (7-56) H 11/06/16 06:25 Alkaline Phosphatase 285 units/L (35-129) H 11/06/16 06:25 Ammonia 27.0 umol/L (25-60) 09/07/16 08:37 Total Creatine Kinase 121 units/L (30-135) 09/29/16 20:12 CK-MB (CK-2) < 1.0 ng/mL (0.0-4.0) 09/29/16 20:12 CK-MB (CK-2) Rel Index 0.8 (0-4) 09/29/16 20:12 Troponin T 0.204 ng/mL (0.00-0.029) H* 09/29/16 20:12 C-Reactive Protein 11.40 mg/dL (0.00-1.30) H 11/05/16 13:25 Total Protein 6.2 g/dL (6.3-8.2) L 11/06/16 06:25 Albumin 1.8 g/dL (3.9-5) L 11/06/16 06:25 Albumin/Globulin Ratio 0.4 % 11/06/16 06:25 Prealbumin 0.180 g/L (0.200-0.400) L 11/06/16 06:25 Triglycerides 137 mg/dL (2-149) 09/29/16 20:12 Cholesterol 31 mg/dL (50-199) L 09/29/16 20:12 LDL Cholesterol Direct 4 mg/dL (50-130) L 09/29/16 20:12 HDL Cholesterol 3 mg/dL (40-59) L 09/29/16 20:12 Cholesterol/HDL Ratio 10.33 % 09/29/16 20:12 Angiotensin Convert Enz See scanned report 09/08/16 11:48 Renin 0.99 ng/mL/h (0.25-5.82) 10/07/16 10:56 Aldosterone <1 ng/dL () 10/07/16 10:56 Aldosterone/Renin Dir see below 10/07/16 10:56 Serotonin Release Assay See scanned report 09/29/16 13:35 TSH 1.010 mlU/mL (0.270-4.200) 09/07/16 08:37 HCG, Qual Negative (Negative) 09/03/16 00:10 Urine Color Yellow (Yellow) 11/05/16 13:09 Urine Turbidity Clear (Clear) 11/05/16 13:09 Urine pH 9.0 (5.0-7.0) H 11/05/16 13:09 Ur Specific Granite 1.011 (1.003-1.030) 11/05/16 13:09 Urine Protein 100 mg/dl mg/dL (Negative) 11/05/16 13:09 Urine Glucose (UA) Neg mg/dL (Negative) 11/05/16 13:09 Urine Ketones Neg mg/dL (Negative) 11/05/16 13:09 Urine Blood Neg (Negative) 11/05/16 13:09 Urine Nitrite Neg (Negative) 11/05/16 13:09 Urine Bilirubin Neg (Negative) 11/05/16 13:09 Urine Urobilinogen < 2.0 mg/dL (<2.0) 11/05/16 13:09 Ur Leukocyte Esterase Neg (Negative) 11/05/16 13:09 Urine WBC (Auto) 4.0 /HPF (0.0-6.0) 11/05/16 13:09 Urine RBC (Auto) 1.0 /HPF (0.0-6.0) 11/05/16 13:09 U Epithel Cells (Auto) 1.0 /HPF (0-13.0) 10/07/16 18:30 Urine Bacteria (Auto) 4+ /HPF (Negative) 11/05/16 13:09 Urine WBC Clumps 2+ /HPF 09/07/16 02:47 Hyaline Casts 4 /LPF 09/07/16 02:47 Urine Mucus Few /HPF 10/07/16 18:30 Urine Yeast (Budding) 3+ /HPF 10/07/16 18:30 Urine Eosinophils None seen (None Seen) 09/07/16 16:00 Urine Total Volume TNR 10/29/16 07:45 Urine Creatinine TNR 10/29/16 07:45 Height (in) TNR 10/29/16 07:45 Weight (lb) TNR 10/29/16 07:45 Creatinine Clearance TNR 10/29/16 07:45 Urine Sodium 36 mEq/L 09/16/16 19:19 Urine Total Protein 16 mg/dL (5-11.8) H 09/16/16 19:19 Vancomycin Trough 2.3 ug/mL (5.0-20.0) L 09/21/16 13:00 Random Vancomycin 17.0 ug/mL (0-40.0) 10/20/16 06:00 Urine Opiates Screen Presumptive negative 09/03/16 15:11 Urine Methadone Screen Presumptive positive 09/03/16 15:11 Ur Barbiturates Screen Presumptive positive 09/03/16 15:11 Ur Phencyclidine Scrn Presumptive negative 09/03/16 15:11 Ur Amphetamines Screen Presumptive negative 09/03/16 15:11 U Benzodiazepines Scrn Presumptive negative 09/03/16 15:11 Urine Cocaine Screen Presumptive negative 09/03/16 15:11 U Marijuana (THC) Screen Presumptive positive 09/03/16 15:11 Drugs of Abuse Note Disclamer 09/03/16 15:11 Rheumatoid Factor 24 IU/ml (0-13) H 09/08/16 11:48 SAHIL Screen Negative (Negative) 09/07/16 09:20 Proteinase 3 (PR3) Ab <1.0 AI (<1.0) 09/07/16 09:20 Myeloperoxidase Ab <1.0 AI (<1.0) 09/07/16 09:20 Sjogren's Antibody <1.0 AI (<1.0) 09/08/16 15:35 Scl-70 Scleroderma Ab <1.0 AI (<1.0) 09/08/16 15:35 Centromere B Antibody <1.0 AI (<1.0) 09/08/16 12:02 Heparin-induced Plt Ab Negative (Negative) 09/29/16 13:35 UF Heparin High Dose 11 % Release 09/29/16 13:35 SUDHIR UFH Low Dose 0.1 6 % Release 09/29/16 13:35 SUDHIR UFH Low Dose 0.5 8 % Release 09/29/16 13:35 Cardiolipid IgG Ab <14 GPL (<=14) 09/12/16 09:59 Cardiolipid IgA Ab <11 APL (<=11) 09/12/16 09:59 Cardiolipid IgM Ab <12 MPL (<=12) 09/12/16 09:59 Complement C3 148 mg/dL (90-180) 09/07/16 09:20 Complement C4 58 mg/dL (16-47) H 09/07/16 09:20 RPR Nonreactive (Nonreactive) 09/08/16 11:48 Hepatitis A IgM Ab Non-reactive (NonReactive) 09/24/16 14:40 Hep Bs Antigen Non-reactive (Negative) 09/24/16 14:40 Hep B Core IgM Ab Non-reactive (NonReactive) 09/24/16 14:40 Hepatitis C Antibody Non-reactive (NonReactive) 09/24/16 14:40 HIV 1&2 Antibody Rapid Non react (Non React) 09/08/16 11:48 HIV P24 Antigen Non react (Non React) 09/08/16 11:48 Miscellaneous Test Flexitest 1 H 11/05/16 13:25 Blood Type A POSITIVE 11/07/16 09:37 Antibody Screen Negative 11/07/16 09:37 DELORIS Antibody Screen Negative 09/25/16 10:30 Crossmatch See Detail 11/07/16 09:37
[2016-11-10] MEDS ORDERED: POTASSIUM CHLORIDE FEEDTUBE ONE (09:00)
--- NOTE | 2016-11-10 09:12 | Progress Note ---
Subjective Principal diagnosis: Acute resp failure on MVS; S/P Acute CVA; Acute Encephalopathy; JUANITA Interval history: Patient was seen today for follow-up, regarding multiple renal related issues Events of 24 hours were noted She remains ventilator dependent Interdisciplinary Notes were also reviewed from past 24 hours Vitals labs intake output medications: Reviewed Past medical history: Reviewed Allergies: Reviewed Social history: Reviewed Family history: Reviewed Physical examination Gen.: No acute distress HEENT: Mild pallor nor icterus no uremic order Neck: Supple without any mass or JVD Chest: Clear to auscultation anteriorly Heart: Regular rate and rhythm S1 and S2 heard Abdomen: Soft nontender no suprapubic fullness no masses no renal bruit Extremity: Edema approximately 1+, no peripheral cyanosis Skin: No petechial rashes dry skin Assessment and plan Acute on chronic renal failure: Patient is currently dialysis dependent, she will continue to receive her dialysis 3 times a week Accelerated hypertension: Tachycardia: Continue to adjust medication Patient does have a renovascular hypertension which is secondary has renal artery stenosis kidneys were echogenic Anemia in renal failure would avoid erythropoietin due to stroke packed red blood cell transfusion can be given Fever currently being followed by infectious disease, catheter tip culture showed coagulase-negative staph follow coccus, tracheal aspirate grams negative rods, urine culture; unremarkable at this time blood cultures have remained negative for 4 days, that were drawn on November 05 Hyperkalemia appears to have resolved; would like to change her dialysis bath to 3 potassium Increase losartan to 100 mg once a day to control hypertension and related complications We'll continue to follow and make recommendation from renal standpoint Objective - Vital Signs Vital signs: Vital Signs - 12hr 11/09/16 11/09/16 11/09/16 22:00 23:00 23:44 Temperature 100.6 F H Pulse Rate 102 H 104 H Pulse Rate [ From Monitor] Respiratory 14 16 Rate Blood Pressure 164/77 148/84 O2 Sat by Pulse 99 99 Oximetry O2 Sat by Pulse Oximetry [ Assessment] 11/09/16 11/10/16 11/10/16 23:56 00:00 00:02 Temperature Pulse Rate 116 H 111 H 111 H Pulse Rate [ From Monitor] Respiratory 20 Rate Blood Pressure 141/84 140/83 140/83 O2 Sat by Pulse 99 99 Oximetry O2 Sat by Pulse 99 Oximetry [ Assessment] 11/10/16 11/10/16 11/10/16 01:01 02:00 03:00 Temperature Pulse Rate 90 106 H 103 H Pulse Rate [ From Monitor] Respiratory 19 19 18 Rate Blood Pressure 121/45 169/92 160/87 O2 Sat by Pulse 100 98 98 Oximetry O2 Sat by Pulse Oximetry [ Assessment] 11/10/16 11/10/16 11/10/16 04:00 04:01 04:54 Temperature 100.3 F H Pulse Rate 103 H 93 H 109 H Pulse Rate [ From Monitor] Respiratory 18 Rate Blood Pressure 130/77 O2 Sat by Pulse 99 99 99 Oximetry O2 Sat by Pulse Oximetry [ Assessment] 11/10/16 11/10/16 11/10/16 05:00 06:00 06:11 Temperature Pulse Rate 108 H 106 H 105 H Pulse Rate [ From Monitor] Respiratory 18 19 Rate Blood Pressure 182/99 176/97 176/97 O2 Sat by Pulse 100 100 Oximetry O2 Sat by Pulse Oximetry [ Assessment] 11/10/16 11/10/16 11/10/16 07:00 08:00 08:51 Temperature 100.1 F H Pulse Rate 86 88 Pulse Rate [ 88 From Monitor] Respiratory 17 18 Rate Blood Pressure 145/73 151/89 O2 Sat by Pulse 100 100 100 Oximetry O2 Sat by Pulse Oximetry [ Assessment] - Lab 11/09/16 04:35 11/10/16 07:00 Most recent lab results Calcium 7.8 mg/dL (8.4-10.2) L 11/10/16 07:00 Phosphorus 4.40 mg/dL (2.5-4.5) 11/07/16 06:30 Magnesium 2.20 mg/dL (1.7-2.3) 11/07/16 06:30 Urine Creatinine TNR 10/29/16 07:45 Urine Sodium 36 mEq/L 09/16/16 19:19 Urine Total Protein 16 mg/dL (5-11.8) H 09/16/16 19:19
[2016-11-10] MEDS: COZAAR PO SCH (09:19)
[2016-11-10] MEDS: QUESTRAN PO SCH (09:19)
[2016-11-10] MEDS: PROTONIX FEEDTUBE SCH (09:19)
--- NOTE | 2016-11-10 09:35 | Progress Note ---
Assessment and Plan Assessment: 1) Recurrent Sepsis: new episode ? unclear source ? line infection ? persistent abd wound output ? fistula -S/p multiple episodes of sepsis - initially due to presumed aspiration pneumonia, then septic episode on 09/23 from Candidemia. Then from - peritonitis from gastric perforation +/- UTI. Latest episode was due to abdominal wall abscess at surgical site. -CRP 19 --> 22 -->11 -Procalcitonin=24 --> 16 --> 4.3 --> 1.8 on 10/05 -Vascath tip + Coag neg Staph - removed -repeat CT no abscess 2) History of Peritonitis: from gastric perforation from dislodged PEG with significant ascites -S/P exlap, repair of gastric perforation with wedge gastrectomy, abdominal washout, drain placement on 10/05. 3) History of Candidemia: -Blood cultures positive for Silvia albicans on 09/23 -Blood cultures positive on 09/25 -Blood cultures negative on 09/30 -PICC line changed on 10/03 -Source ? gastric perf (PEG placed on 09/20) +/- TPN +/- central lines -TTE 10/07 no vegetations -PICC exchanged on 10/03 -fully treated with micafungin for 14 days last day 10/13 4) History CA-UTI s/p gutierrez exchanged 5) Diarrhea - ? etiology ? antibiotic-induced, not better 6) Initial presumed aspiration pneumonia 7) Respiratory failure s/p trach 8) Recent CVA-left MCA CVA 9) Uncontrolled HTN 10) Acute on CKD 11) Extensive back skin peeling ? burn from gastric secretions. Doubt allergic reaction - resolved 12) Severe anemia; ? from GI bleed 13) Recent abdominal wall abscess at surgical site-treated Plan: -continue levaquin and vancomycin - day 4 of 7 -monitor fever -eval abdominal wound output ? fistulae Thank you Dr Pierre for your consultation, will follow up with you. Pauline Carias MD Infectious Diseases Specialist [facility] ([facility] M [phone] O [phone] Subjective Date of service: 11/10/16 Principal diagnosis: Acute resp failure on MVS; S/P Acute CVA; Acute Encephalopathy; JUANITA Interval history: Interval history: Fever started again - tmax 100.5 . remains on the vent t-piece. 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 +NGT with greenish secretion Neck: +trach in place; supple, no thyromegaly or lymphadenopathy Lungs: CTA CV: tachycardic Abdomen: Soft, non-tender, +old PEG site no drainage. +iliostomy. Right sided Surgical site x 2 with ostomy bag draining thick yellowish secretion Extremities: +peripheral edema no extremity lymphadenopathy Skin: sacral area wounds superficial no purulence Psych: somnolent . Neuro: alert non verbal on the vent. Lines: left arm PICC placed on 10/03 - Constitutional Vitals: Vital Signs Temp Pulse Resp BP Pulse Ox 100.1 F H 89 18 167/86 100 11/10/16 08:00 11/10/16 09:19 11/10/16 08:00 11/10/16 09:19 11/10/16 08:51 Temperature -Last 24 Hours Temperature 100.1 F Temperature 100.3 F Temperature 100.6 F Temperature 100.1 F Temperature 98.7 F Temperature 98.2 F Temperature 100.4 F Temperature 100.5 F - Labs CBC & Chem 7: 11/09/16 04:35 11/10/16 07:00 Labs: Abnormal lab results 11/09/16 11/09/16 11/09/16 Range/Units 10:15 18:21 18:55 Potassium (3.6-5.0) mmol/L Chloride (98-107) mmol/L BUN 51 H (7-17) mg/dL Creatinine 1.8 H (0.7-1.2) mg/dL POC Glucose 60 L 68 L (70-105) Calcium 8.3 L (8.4-10.2) mg/dL 11/10/16 Range/Units 07:00 Potassium 3.0 L D (3.6-5.0) mmol/L Chloride 97.4 L (98-107) mmol/L BUN 28 H (7-17) mg/dL Creatinine 1.3 H (0.7-1.2) mg/dL POC Glucose (70-105) Calcium 7.8 L (8.4-10.2) mg/dL
[2016-11-10] MEDS: TYLENOL FEEDTUBE PRN ×2 (10:15→23:04)
[2016-11-10] MEDS: APRESOLINE IV PRN ×2 (10:15→17:08)
[2016-11-10] MEDS: MAXIPIME/NS 2 GM/100 ML 2 GM/100 ML BAG IV SCH (11:51)
--- NOTE | 2016-11-10 12:43 | Progress Note ---
Assessment and Plan (1) Acute respiratory failure with hypoxia Current Visit: Yes Status: Acute Plan to address problem: - continue aspiration precautions - continue to wean oxygen for MAP > 94% - continue bronchodilators and pulmonary toilet - s/p tracheostomy - continue scopolamine - ABG's prn at this point for increased work of breathing or other resp distress - will send for right thoracentesis re: moderate effusion with the hope that it aids RTC t-piece tolerance (2) Acute CVA (cerebrovascular accident) Current Visit: Yes Status: Acute Plan to address problem: -Left MCA teritory stroke - seen by neurology and prognosis for recovery of mental status guarded to poor - optimizing secondary prevention modalities now (BP, lipid anti-platelet therapy) - off systemic steroids now (started earlier for edema) - clinically mild improvement (3) Hypertensive emergency Current Visit: Yes Status: Acute Plan to address problem: - continue antihypertensives (on metoprolol, clonidine and cozaar) - use prn hydralazine - resume sedation while on MVS (4) Obesity (BMI 35.0-39.9 without comorbidity) Current Visit: Yes Status: Chronic Plan to address problem: - now at goal rate on tube feeding - stopped TPN (5) Type 2 diabetes mellitus Current Visit: Yes Status: Chronic Qualifiers: Diabetes mellitus complication status: D Diabetes mellitus complication detail: D Diabetic retinopathy severity: D Proliferative retinopathy type: P Diabetes mellitus macular edema: D 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 : D Laterality: L Chronic kidney disease stage: C Plan to address problem: - continue SSI - discontinued lantus prior re: hypoglycemia - target BG's <180 mg/dl (6) Leukocytosis (leucocytosis) Current Visit: Yes Status: Acute Qualifiers: Leukocytosis type: leukemoid reaction Qualified Code(s): D72.823 - Leukemoid reaction Plan to address problem: - improving - see sepsis section below (7) Agitation Current Visit: Yes Status: Acute Plan to address problem: - prn sedation / analgesia - tapered off seroquel for now (8) Atrial fibrillation Current Visit: Yes Status: Acute Qualifiers: Atrial fibrillation type: A Plan to address problem: - off amiodarone - continue p.o. metoprolol scheduled at 50mg q6h and adjust as necessary (9) JUANITA (acute kidney injury) Current Visit: Yes Status: Acute Plan to address problem: - on Dialysis now - continue HD/UF per nephrology recommendations - s/p tunnelled vas-cath - HD/UF -- (10) Pyrexia of unknown origin Current Visit: Yes Status: Acute Plan to address problem: - dopplers negative for DVT - continue to treat with Anti-infectives (11) Severe sepsis Current Visit: Yes Status: Acute Plan to address problem: - resume vasopressors for MAP < 60mmHg not responsive to volume - continue anti-infectives per ID recs - VRE in urine noted; ? colonizer at this point - continue contact precautions (12) Emesis Current Visit: Yes Status: Acute Qualifiers: Vomiting type: V Vomiting Intractability: V Nausea presence: N Plan to address problem: - s/p surgical repair of gastric perforation - continue TPN for now - follow surgery recommendations re: feeding and new PEG tube - now tolerating tube feeds at goal rate (13) Dysphagia, oropharyngeal Current Visit: Yes Status: Acute Plan to address problem: - discussed with surgeon and she will be best served with continued treatment with anti-infectives as well as time for the GI tract and her wounds to heal before replacing the PEG tube - continue DHT feeding (14) Discharge planning issues Current Visit: Yes Status: Acute Plan to address problem: - she remains critically ill on life sustaining interventions including MVS and at risk for further acute deterioration including - if can stay off MVS then can transfer to medical floor shortly .....30' CCT ....custodial prognosis is guarded Subjective Date of service: 11/10/16 Principal diagnosis: Acute resp failure on MVS; S/P Acute CVA; Acute Encephalopathy; JUANITA Interval history: Seen and examined at bedside; 24 hour events reviewed; nursing and respiratory care staff consulted; no adverse overnight events reported to me; resting in bed ; on T-piece now and tolerating well so far; no emesis or overt aspiration; CT abd & pelvis reviewed Objective Vital Signs - 12hr 11/10/16 11/10/16 11/10/16 01:01 02:00 03:00 Temperature Pulse Rate 90 106 H 103 H Pulse Rate [ From Monitor] Respiratory 19 19 18 Rate Blood Pressure 121/45 169/92 160/87 O2 Sat by Pulse 100 98 98 Oximetry O2 Sat by Pulse Oximetry [ Assessment] 11/10/16 11/10/16 11/10/16 04:00 04:01 04:54 Temperature 100.3 F H Pulse Rate 103 H 93 H 109 H Pulse Rate [ From Monitor] Respiratory 18 Rate Blood Pressure 130/77 O2 Sat by Pulse 99 99 99 Oximetry O2 Sat by Pulse Oximetry [ Assessment] 11/10/16 11/10/16 11/10/16 05:00 06:00 06:11 Temperature Pulse Rate 108 H 106 H 105 H Pulse Rate [ From Monitor] Respiratory 18 19 Rate Blood Pressure 182/99 176/97 176/97 O2 Sat by Pulse 100 100 Oximetry O2 Sat by Pulse Oximetry [ Assessment] 11/10/16 11/10/16 11/10/16 07:00 08:00 08:51 Temperature 100.1 F H Pulse Rate 86 88 Pulse Rate [ 88 From Monitor] Respiratory 17 18 Rate Blood Pressure 145/73 151/89 O2 Sat by Pulse 100 100 100 Oximetry O2 Sat by Pulse Oximetry [ Assessment] 11/10/16 11/10/16 11/10/16 09:00 09:15 09:19 Temperature Pulse Rate 103 H 89 Pulse Rate [ From Monitor] Respiratory 31 H Rate Blood Pressure 178/99 167/86 O2 Sat by Pulse 100 Oximetry O2 Sat by Pulse 98 Oximetry [ Assessment] 11/10/16 11/10/16 11/10/16 10:00 10:15 11:00 Temperature Pulse Rate 105 H 105 H 110 H Pulse Rate [ From Monitor] Respiratory 22 14 Rate Blood Pressure 197/104 197/104 156/81 O2 Sat by Pulse 100 98 Oximetry O2 Sat by Pulse Oximetry [ Assessment] 11/10/16 11/10/16 11:50 12:00 Temperature 99.4 F Pulse Rate 103 H 97 H Pulse Rate [ From Monitor] Respiratory 16 Rate Blood Pressure 157/83 146/73 O2 Sat by Pulse 99 Oximetry O2 Sat by Pulse Oximetry [ Assessment] Constitutional: no acute distress, other (eyes open; tracking movements) Eyes: non-icteric, other (tracheostomy tube in midline of neck) ENT: oropharynx moist Neck: supple, no lymphadenopathy Effort: mildly labored Ascultation: Bilateral: diminished breath sounds (bases), rhonchi Cardiovascular: regular rate and rhythm Gastrointestinal: hypoactive bowel sounds, soft, non-tender, non-distended, other (RLQ stomas with colostomy bags) Integumentary: other (healing back burn-like injury) Extremities: no cyanosis, no edema, pulses normal, no ischemia or petechiae Neurologic: pupils equal and round, other (sedated) Psychiatric: other (unable to assess) CBC and BMP: 11/09/16 04:35 11/10/16 07:00 ABG, PT/INR, D-dimer: ABG POC ABG pH 7.478 (7.35-7.45) H 11/08/16 23:37 POC ABG pCO2 34.0 (35-45) L 11/08/16 23:37 POC ABG pO2 50 (80-105) L 11/08/16 23:37 POC ABG HCO3 25.2 11/08/16 23:37 POC ABG Total CO2 26 11/08/16 23:37 POC ABG O2 Sat 88 11/08/16 23:37 PT/INR, D-dimer PT 19.0 Sec. (12.2-14.9) H 10/09/16 03:45 INR 1.51 (0.87-1.13) H 10/09/16 03:45 Abnormal lab findings: Abnormal Labs 09/03/16 09/03/16 09/03/16 12:12 15:07 16:20 WBC RBC Hgb Hct MCV MCH MCHC RDW Plt Count Lymph % (Auto) [place] % (Auto) Lymph # [place] # Baso # Seg Neutrophils % Seg Neuts % (Manual) Lymphocytes % (Manual) Monocytes % (Manual) Eosinophils % (Manual) Basophils % (Manual) Nucleated RBC % Seg Neutrophils # Seg Neutrophils # Man Lymphocytes # (Manual) Monocytes # (Manual) Eosinophils # (Manual) PT INR Fibrinogen dRVVT Confirm Interp Factor V Activity POC ABG pH 7.452 H POC ABG pCO2 POC ABG pO2 Sodium Potassium Chloride Carbon Dioxide BUN Creatinine Glucose POC Glucose 178 H Lactic Acid Calcium Phosphorus 2.20 L Magnesium 1.60 L Direct Bilirubin AST ALT Alkaline Phosphatase Troponin T C-Reactive Protein Total Protein Albumin Prealbumin Triglycerides Cholesterol LDL Cholesterol Direct HDL Cholesterol Urine pH Urine WBC (Auto) Urine Creatinine Urine Total Protein Vancomycin Trough Rheumatoid Factor Complement C4 Miscellaneous Test Crossmatch 09/03/16 09/03/16 09/03/16 17:57 17:58 23:50 WBC RBC Hgb Hct MCV MCH MCHC RDW Plt Count Lymph % (Auto) [place] % (Auto) Lymph # [place] # Baso # Seg Neutrophils % Seg Neuts % (Manual) Lymphocytes % (Manual) Monocytes % (Manual) Eosinophils % (Manual) Basophils % (Manual) Nucleated RBC % Seg Neutrophils # Seg Neutrophils # Man Lymphocytes # (Manual) Monocytes # (Manual) Eosinophils # (Manual) PT INR Fibrinogen dRVVT Confirm Interp Factor V Activity POC ABG pH POC ABG pCO2 POC ABG pO2 Sodium Potassium Chloride Carbon Dioxide BUN Creatinine Glucose POC Glucose 162 H 145 H Lactic Acid Calcium Phosphorus 2.30 L Magnesium Direct Bilirubin AST ALT Alkaline Phosphatase Troponin T C-Reactive Protein Total Protein Albumin Prealbumin Triglycerides Cholesterol LDL Cholesterol Direct HDL Cholesterol Urine pH Urine WBC (Auto) Urine Creatinine Urine Total Protein Vancomycin Trough Rheumatoid Factor Complement C4 Miscellaneous Test Crossmatch 09/04/16 09/04/16 09/04/16 03:31 03:31 05:42 WBC RBC Hgb 9.7 L D Hct MCV 72 L MCH 23 L MCHC RDW 17.5 H Plt Count Lymph % (Auto) 11.1 L [place] % (Auto) Lymph # [place] # Baso # Seg Neutrophils % 84.3 H Seg Neuts % (Manual) Lymphocytes % (Manual) Monocytes % (Manual) Eosinophils % (Manual) Basophils % (Manual) Nucleated RBC % Seg Neutrophils # 8.9 H Seg Neutrophils # Man Lymphocytes # (Manual) Monocytes # (Manual) Eosinophils # (Manual) PT INR Fibrinogen dRVVT Confirm Interp Factor V Activity POC ABG pH POC ABG pCO2 POC ABG pO2 Sodium 135 L Potassium 2.9 L* Chloride 97.2 L Carbon Dioxide 19 L BUN Creatinine 1.7 H Glucose 170 H POC Glucose 152 H Lactic Acid Calcium Phosphorus Magnesium Direct Bilirubin AST ALT Alkaline Phosphatase Troponin T C-Reactive Protein Total Protein Albumin Prealbumin Triglycerides 160 H Cholesterol LDL Cholesterol Direct HDL Cholesterol 31 L Urine pH Urine WBC (Auto) Urine Creatinine Urine Total Protein Vancomycin Trough Rheumatoid Factor Complement C4 Miscellaneous Test Crossmatch 09/04/16 09/04/16 09/04/16 11:34 17:46 23:29 WBC RBC Hgb Hct MCV MCH MCHC RDW Plt Count Lymph % (Auto) [place] % (Auto) Lymph # [place] # Baso # Seg Neutrophils % Seg Neuts % (Manual) Lymphocytes % (Manual) Monocytes % (Manual) Eosinophils % (Manual) Basophils % (Manual) Nucleated RBC % Seg Neutrophils # Seg Neutrophils # Man Lymphocytes # (Manual) Monocytes # (Manual) Eosinophils # (Manual) PT INR Fibrinogen dRVVT Confirm Interp Factor V Activity POC ABG pH POC ABG pCO2 POC ABG pO2 Sodium Potassium Chloride Carbon Dioxide BUN Creatinine Glucose POC Glucose 165 H 210 H 139 H Lactic Acid Calcium Phosphorus Magnesium Direct Bilirubin AST ALT Alkaline Phosphatase Troponin T C-Reactive Protein Total Protein Albumin Prealbumin Triglycerides Cholesterol LDL Cholesterol Direct HDL Cholesterol Urine pH Urine WBC (Auto) Urine Creatinine Urine Total Protein Vancomycin Trough Rheumatoid Factor Complement C4 Miscellaneous Test Crossmatch 09/05/16 09/05/16 09/05/16 04:05 04:05 05:38 WBC RBC Hgb Hct MCV 76 L D MCH 23 L MCHC RDW 17.8 H Plt Count Lymph % (Auto) [place] % (Auto) Lymph # [place] # Baso # Seg Neutrophils % Seg Neuts % (Manual) Lymphocytes % (Manual) Monocytes % (Manual) Eosinophils % (Manual) Basophils % (Manual) Nucleated RBC % Seg Neutrophils # Seg Neutrophils # Man Lymphocytes # (Manual) Monocytes # (Manual) Eosinophils # (Manual) PT INR Fibrinogen dRVVT Confirm Interp Factor V Activity POC ABG pH POC ABG pCO2 POC ABG pO2 Sodium 134 L Potassium Chloride Carbon Dioxide 18 L BUN Creatinine 1.8 H Glucose 192 H POC Glucose 175 H Lactic Acid Calcium Phosphorus Magnesium Direct Bilirubin AST ALT Alkaline Phosphatase Troponin T C-Reactive Protein Total Protein Albumin Prealbumin Triglycerides Cholesterol LDL Cholesterol Direct HDL Cholesterol Urine pH Urine WBC (Auto) Urine Creatinine Urine Total Protein Vancomycin Trough Rheumatoid Factor Complement C4 Miscellaneous Test Crossmatch 09/05/16 09/05/16 09/05/16 11:38 17:48 23:22 WBC RBC Hgb Hct MCV MCH MCHC RDW Plt Count Lymph % (Auto) [place] % (Auto) Lymph # [place] # Baso # Seg Neutrophils % Seg Neuts % (Manual) Lymphocytes % (Manual) Monocytes % (Manual) Eosinophils % (Manual) Basophils % (Manual) Nucleated RBC % Seg Neutrophils # Seg Neutrophils # Man Lymphocytes # (Manual) Monocytes # (Manual) Eosinophils # (Manual) PT INR Fibrinogen dRVVT Confirm Interp Factor V Activity POC ABG pH POC ABG pCO2 POC ABG pO2 Sodium Potassium Chloride Carbon Dioxide BUN Creatinine Glucose POC Glucose 164 H 186 H 195 H Lactic Acid Calcium Phosphorus Magnesium Direct Bilirubin AST ALT Alkaline Phosphatase Troponin T C-Reactive Protein Total Protein Albumin Prealbumin Triglycerides Cholesterol LDL Cholesterol Direct HDL Cholesterol Urine pH Urine WBC (Auto) Urine Creatinine Urine Total Protein Vancomycin Trough Rheumatoid Factor Complement C4 Miscellaneous Test Crossmatch 09/06/16 09/06/16 09/06/16 04:12 05:59 07:32 WBC RBC Hgb Hct MCV MCH MCHC RDW Plt Count Lymph % (Auto) [place] % (Auto) Lymph # [place] # Baso # Seg Neutrophils % Seg Neuts % (Manual) Lymphocytes % (Manual) Monocytes % (Manual) Eosinophils % (Manual) Basophils % (Manual) Nucleated RBC % Seg Neutrophils # Seg Neutrophils # Man Lymphocytes # (Manual) Monocytes # (Manual) Eosinophils # (Manual) PT INR Fibrinogen dRVVT Confirm Interp Factor V Activity POC ABG pH 7.514 H POC ABG pCO2 29.1 L POC ABG pO2 72 L Sodium 133 L Potassium 3.4 L Chloride 94.9 L Carbon Dioxide 19 L BUN 30 H Creatinine 2.1 H Glucose 139 H POC Glucose 146 H Lactic Acid Calcium Phosphorus Magnesium Direct Bilirubin AST ALT Alkaline Phosphatase Troponin T C-Reactive Protein Total Protein Albumin Prealbumin Triglycerides Cholesterol LDL Cholesterol Direct HDL Cholesterol Urine pH Urine WBC (Auto) Urine Creatinine Urine Total Protein Vancomycin Trough Rheumatoid Factor Complement C4 Miscellaneous Test Crossmatch 09/06/16 09/06/16 09/06/16 11:57 17:58 19:02 WBC RBC Hgb Hct MCV MCH MCHC RDW Plt Count Lymph % (Auto) [place] % (Auto) Lymph # [place] # Baso # Seg Neutrophils % Seg Neuts % (Manual) Lymphocytes % (Manual) Monocytes % (Manual) Eosinophils % (Manual) Basophils % (Manual) Nucleated RBC % Seg Neutrophils # Seg Neutrophils # Man Lymphocytes # (Manual) Monocytes # (Manual) Eosinophils # (Manual) PT INR Fibrinogen dRVVT Confirm Interp Factor V Activity POC ABG pH 7.465 H POC ABG pCO2 32.0 L POC ABG pO2 Sodium Potassium Chloride Carbon Dioxide BUN Creatinine Glucose POC Glucose 165 H 160 H Lactic Acid Calcium Phosphorus Magnesium Direct Bilirubin AST ALT Alkaline Phosphatase Troponin T C-Reactive Protein Total Protein Albumin Prealbumin Triglycerides Cholesterol LDL Cholesterol Direct HDL Cholesterol Urine pH Urine WBC (Auto) Urine Creatinine Urine Total Protein Vancomycin Trough Rheumatoid Factor Complement C4 Miscellaneous Test Crossmatch 09/06/16 09/07/16 09/07/16 23:45 02:47 02:47 WBC RBC Hgb Hct MCV MCH MCHC RDW Plt Count Lymph % (Auto) [place] % (Auto) Lymph # [place] # Baso # Seg Neutrophils % Seg Neuts % (Manual) Lymphocytes % (Manual) Monocytes % (Manual) Eosinophils % (Manual) Basophils % (Manual) Nucleated RBC % Seg Neutrophils # Seg Neutrophils # Man Lymphocytes # (Manual) Monocytes # (Manual) Eosinophils # (Manual) PT INR Fibrinogen dRVVT Confirm Interp Factor V Activity POC ABG pH POC ABG pCO2 POC ABG pO2 Sodium Potassium Chloride Carbon Dioxide BUN Creatinine Glucose POC Glucose 204 H Lactic Acid Calcium Phosphorus Magnesium Direct Bilirubin AST ALT Alkaline Phosphatase Troponin T C-Reactive Protein Total Protein Albumin Prealbumin Triglycerides Cholesterol LDL Cholesterol Direct HDL Cholesterol Urine pH Urine WBC (Auto) 68.0 H Urine Creatinine 106.1 H Urine Total Protein Vancomycin Trough Rheumatoid Factor Complement C4 Miscellaneous Test Crossmatch 09/07/16 09/07/16 09/07/16 04:50 06:19 06:39 WBC RBC Hgb Hct MCV MCH MCHC RDW Plt Count Lymph % (Auto) [place] % (Auto) Lymph # [place] # Baso # Seg Neutrophils % Seg Neuts % (Manual) Lymphocytes % (Manual) Monocytes % (Manual) Eosinophils % (Manual) Basophils % (Manual) Nucleated RBC % Seg Neutrophils # Seg Neutrophils # Man Lymphocytes # (Manual) Monocytes # (Manual) Eosinophils # (Manual) PT INR Fibrinogen dRVVT Confirm Interp Factor V Activity POC ABG pH 7.457 H POC ABG pCO2 32.1 L POC ABG pO2 76 L Sodium 132 L Potassium Chloride 94.7 L Carbon Dioxide BUN 53 H Creatinine 2.9 H Glucose 151 H POC Glucose 149 H Lactic Acid Calcium Phosphorus Magnesium Direct Bilirubin AST ALT Alkaline Phosphatase Troponin T C-Reactive Protein Total Protein Albumin Prealbumin Triglycerides Cholesterol LDL Cholesterol Direct HDL Cholesterol Urine pH Urine WBC (Auto) Urine Creatinine Urine Total Protein Vancomycin Trough Rheumatoid Factor Complement C4 Miscellaneous Test Crossmatch 09/07/16 09/07/16 09/07/16 09:20 11:43 11:43 WBC 19.4 H RBC Hgb 8.3 L Hct 26.4 L D MCV 72 L D MCH 22 L MCHC RDW 17.9 H Plt Count Lymph % (Auto) 8.5 L [place] % (Auto) Lymph # [place] # 1.0 H Baso # Seg Neutrophils % 85.8 H Seg Neuts % (Manual) Lymphocytes % (Manual) Monocytes % (Manual) Eosinophils % (Manual) Basophils % (Manual) Nucleated RBC % Seg Neutrophils # 16.6 H Seg Neutrophils # Man Lymphocytes # (Manual) Monocytes # (Manual) Eosinophils # (Manual) PT INR Fibrinogen dRVVT Confirm Interp Factor V Activity POC ABG pH POC ABG pCO2 POC ABG pO2 Sodium 134 L Potassium Chloride 97.2 L Carbon Dioxide 20 L BUN 58 H Creatinine 2.9 H Glucose 147 H POC Glucose Lactic Acid Calcium Phosphorus 2.40 L Magnesium 2.40 H Direct Bilirubin AST ALT Alkaline Phosphatase Troponin T C-Reactive Protein Total Protein 5.8 L Albumin 2.2 L Prealbumin Triglycerides Cholesterol LDL Cholesterol Direct HDL Cholesterol Urine pH Urine WBC (Auto) Urine Creatinine Urine Total Protein Vancomycin Trough Rheumatoid Factor Complement C4 58 H Miscellaneous Test Crossmatch 09/07/16 09/07/16 09/07/16 11:50 16:00 17:31 WBC RBC Hgb Hct MCV MCH MCHC RDW Plt Count Lymph % (Auto) [place] % (Auto) Lymph # [place] # Baso # Seg Neutrophils % Seg Neuts % (Manual) Lymphocytes % (Manual) Monocytes % (Manual) Eosinophils % (Manual) Basophils % (Manual) Nucleated RBC % Seg Neutrophils # Seg Neutrophils # Man Lymphocytes # (Manual) Monocytes # (Manual) Eosinophils # (Manual) PT INR Fibrinogen dRVVT Confirm Interp Factor V Activity POC ABG pH POC ABG pCO2 POC ABG pO2 158 H Sodium Potassium Chloride Carbon Dioxide BUN Creatinine Glucose POC Glucose 175 H Lactic Acid Calcium Phosphorus Magnesium Direct Bilirubin AST ALT Alkaline Phosphatase Troponin T C-Reactive Protein Total Protein Albumin Prealbumin Triglycerides Cholesterol LDL Cholesterol Direct HDL Cholesterol Urine pH Urine WBC (Auto) Urine Creatinine 66.3 H Urine Total Protein Vancomycin Trough Rheumatoid Factor Complement C4 Miscellaneous Test Crossmatch 09/07/16 09/08/16 09/08/16 23:50 05:46 06:18 WBC 17.8 H RBC 3.58 L Hgb 8.1 L Hct 25.5 L MCV 71 L MCH 23 L MCHC RDW 18.4 H Plt Count Lymph % (Auto) [place] % (Auto) Lymph # [place] # Baso # Seg Neutrophils % Seg Neuts % (Manual) 92.0 H Lymphocytes % (Manual) 6.0 L Monocytes % (Manual) Eosinophils % (Manual) Basophils % (Manual) Nucleated RBC % Seg Neutrophils # Seg Neutrophils # Man 16.4 H Lymphocytes # (Manual) 1.1 L Monocytes # (Manual) Eosinophils # (Manual) PT INR Fibrinogen dRVVT Confirm Interp Factor V Activity POC ABG pH POC ABG pCO2 34.3 L POC ABG pO2 71 L Sodium Potassium Chloride Carbon Dioxide BUN Creatinine Glucose POC Glucose 216 H Lactic Acid Calcium Phosphorus Magnesium Direct Bilirubin AST ALT Alkaline Phosphatase Troponin T C-Reactive Protein Total Protein Albumin Prealbumin Triglycerides Cholesterol LDL Cholesterol Direct HDL Cholesterol Urine pH Urine WBC (Auto) Urine Creatinine Urine Total Protein Vancomycin Trough Rheumatoid Factor Complement C4 Miscellaneous Test Crossmatch 09/08/16 09/08/16 09/08/16 06:18 06:51 10:55 WBC RBC Hgb Hct MCV MCH MCHC RDW Plt Count Lymph % (Auto) [place] % (Auto) Lymph # [place] # Baso # Seg Neutrophils % Seg Neuts % (Manual) Lymphocytes % (Manual) Monocytes % (Manual) Eosinophils % (Manual) Basophils % (Manual) Nucleated RBC % Seg Neutrophils # Seg Neutrophils # Man Lymphocytes # (Manual) Monocytes # (Manual) Eosinophils # (Manual) PT INR Fibrinogen dRVVT Confirm Interp Factor V Activity POC ABG pH POC ABG pCO2 POC ABG pO2 Sodium 133 L Potassium Chloride 96.9 L Carbon Dioxide 20 L BUN 63 H Creatinine 2.7 H Glucose 195 H POC Glucose 204 H 169 H Lactic Acid Calcium Phosphorus Magnesium Direct Bilirubin AST ALT Alkaline Phosphatase Troponin T C-Reactive Protein Total Protein Albumin Prealbumin Triglycerides Cholesterol LDL Cholesterol Direct HDL Cholesterol Urine pH Urine WBC (Auto) Urine Creatinine Urine Total Protein Vancomycin Trough Rheumatoid Factor Complement C4 Miscellaneous Test Crossmatch 09/08/16 09/08/16 09/08/16 11:48 11:48 11:48 WBC RBC Hgb Hct MCV MCH MCHC RDW Plt Count Lymph % (Auto) [place] % (Auto) Lymph # [place] # Baso # Seg Neutrophils % Seg Neuts % (Manual) Lymphocytes % (Manual) Monocytes % (Manual) Eosinophils % (Manual) Basophils % (Manual) Nucleated RBC % Seg Neutrophils # Seg Neutrophils # Man Lymphocytes # (Manual) Monocytes # (Manual) Eosinophils # (Manual) PT INR Fibrinogen 750 H dRVVT Confirm Interp Factor V Activity POC ABG pH POC ABG pCO2 POC ABG pO2 Sodium Potassium Chloride Carbon Dioxide BUN Creatinine Glucose POC Glucose Lactic Acid Calcium Phosphorus Magnesium Direct Bilirubin AST ALT Alkaline Phosphatase Troponin T C-Reactive Protein 15.70 H Total Protein Albumin Prealbumin Triglycerides Cholesterol LDL Cholesterol Direct HDL Cholesterol Urine pH Urine WBC (Auto) Urine Creatinine Urine Total Protein Vancomycin Trough Rheumatoid Factor 24 H Complement C4 Miscellaneous Test Crossmatch 09/08/16 09/08/16 09/09/16 15:35 18:25 00:24 WBC RBC Hgb Hct MCV MCH MCHC RDW Plt Count Lymph % (Auto) [place] % (Auto) Lymph # [place] # Baso # Seg Neutrophils % Seg Neuts % (Manual) Lymphocytes % (Manual) Monocytes % (Manual) Eosinophils % (Manual) Basophils % (Manual) Nucleated RBC % Seg Neutrophils # Seg Neutrophils # Man Lymphocytes # (Manual) Monocytes # (Manual) Eosinophils # (Manual) PT INR Fibrinogen dRVVT Confirm Interp Factor V Activity 182 H POC ABG pH POC ABG pCO2 POC ABG pO2 Sodium Potassium Chloride Carbon Dioxide BUN Creatinine Glucose POC Glucose 184 H 216 H Lactic Acid Calcium Phosphorus Magnesium Direct Bilirubin AST ALT Alkaline Phosphatase Troponin T C-Reactive Protein Total Protein Albumin Prealbumin Triglycerides Cholesterol LDL Cholesterol Direct HDL Cholesterol Urine pH Urine WBC (Auto) Urine Creatinine Urine Total Protein Vancomycin Trough Rheumatoid Factor Complement C4 Miscellaneous Test Crossmatch 09/09/16 09/09/16 09/09/16 03:00 03:00 04:04 WBC 27.9 H RBC Hgb 8.7 L Hct 28.1 L MCV 72 L MCH 22 L MCHC RDW 18.4 H Plt Count 485 H Lymph % (Auto) [place] % (Auto) Lymph # [place] # Baso # Seg Neutrophils % Seg Neuts % (Manual) 77.0 H Lymphocytes % (Manual) 9.0 L Monocytes % (Manual) Eosinophils % (Manual) Basophils % (Manual) Nucleated RBC % Seg Neutrophils # Seg Neutrophils # Man 21.5 H Lymphocytes # (Manual) Monocytes # (Manual) 2.0 H Eosinophils # (Manual) PT INR Fibrinogen dRVVT Confirm Interp Factor V Activity POC ABG pH POC ABG pCO2 POC ABG pO2 121 H Sodium 135 L Potassium Chloride 96.3 L Carbon Dioxide 21 L BUN 83 H Creatinine 3.0 H Glucose 135 H POC Glucose Lactic Acid Calcium Phosphorus Magnesium Direct Bilirubin AST ALT Alkaline Phosphatase Troponin T C-Reactive Protein Total Protein Albumin Prealbumin Triglycerides Cholesterol LDL Cholesterol Direct HDL Cholesterol Urine pH Urine WBC (Auto) Urine Creatinine Urine Total Protein Vancomycin Trough Rheumatoid Factor Complement C4 Miscellaneous Test Crossmatch 09/09/16 09/09/16 09/09/16 05:41 11:55 14:13 WBC RBC Hgb Hct MCV MCH MCHC RDW Plt Count Lymph % (Auto) [place] % (Auto) Lymph # [place] # Baso # Seg Neutrophils % Seg Neuts % (Manual) Lymphocytes % (Manual) Monocytes % (Manual) Eosinophils % (Manual) Basophils % (Manual) Nucleated RBC % Seg Neutrophils # Seg Neutrophils # Man Lymphocytes # (Manual) Monocytes # (Manual) Eosinophils # (Manual) PT INR Fibrinogen dRVVT Confirm Interp Factor V Activity POC ABG pH POC ABG pCO2 POC ABG pO2 Sodium Potassium Chloride Carbon Dioxide BUN Creatinine Glucose POC Glucose 155 H 186 H Lactic Acid Calcium Phosphorus Magnesium Direct Bilirubin AST ALT Alkaline Phosphatase Troponin T C-Reactive Protein Total Protein Albumin Prealbumin Triglycerides Cholesterol LDL Cholesterol Direct HDL Cholesterol Urine pH Urine WBC (Auto) 25.0 H Urine Creatinine Urine Total Protein Vancomycin Trough Rheumatoid Factor Complement C4 Miscellaneous Test Crossmatch 09/09/16 09/09/16 09/10/16 17:33 23:13 05:09 WBC RBC Hgb Hct MCV MCH MCHC RDW Plt Count Lymph % (Auto) [place] % (Auto) Lymph # [place] # Baso # Seg Neutrophils % Seg Neuts % (Manual) Lymphocytes % (Manual) Monocytes % (Manual) Eosinophils % (Manual) Basophils % (Manual) Nucleated RBC % Seg Neutrophils # Seg Neutrophils # Man Lymphocytes # (Manual) Monocytes # (Manual) Eosinophils # (Manual) PT INR Fibrinogen dRVVT Confirm Interp Factor V Activity POC ABG pH POC ABG pCO2 POC ABG pO2 74 L Sodium Potassium Chloride Carbon Dioxide BUN Creatinine Glucose POC Glucose 211 H 215 H Lactic Acid Calcium Phosphorus Magnesium Direct Bilirubin AST ALT Alkaline Phosphatase Troponin T C-Reactive Protein Total Protein Albumin Prealbumin Triglycerides Cholesterol LDL Cholesterol Direct HDL Cholesterol Urine pH Urine WBC (Auto) Urine Creatinine Urine Total Protein Vancomycin Trough Rheumatoid Factor Complement C4 Miscellaneous Test Crossmatch 09/10/16 09/10/16 09/10/16 05:17 05:17 11:31 WBC 15.8 H RBC 3.25 L Hgb 7.3 L Hct 22.9 L MCV 71 L MCH 23 L MCHC RDW 18.4 H Plt Count Lymph % (Auto) [place] % (Auto) Lymph # [place] # Baso # Seg Neutrophils % Seg Neuts % (Manual) 91.0 H Lymphocytes % (Manual) 4.0 L Monocytes % (Manual) Eosinophils % (Manual) Basophils % (Manual) Nucleated RBC % Seg Neutrophils # Seg Neutrophils # Man 14.4 H Lymphocytes # (Manual) 0.6 L Monocytes # (Manual) Eosinophils # (Manual) PT INR Fibrinogen dRVVT Confirm Interp Factor V Activity POC ABG pH POC ABG pCO2 POC ABG pO2 Sodium Potassium Chloride Carbon Dioxide 21 L BUN 93 H Creatinine 2.9 H Glucose 146 H POC Glucose 188 H Lactic Acid Calcium 8.1 L Phosphorus Magnesium Direct Bilirubin AST ALT Alkaline Phosphatase Troponin T C-Reactive Protein Total Protein Albumin Prealbumin Triglycerides Cholesterol LDL Cholesterol Direct HDL Cholesterol Urine pH Urine WBC (Auto) Urine Creatinine Urine Total Protein Vancomycin Trough Rheumatoid Factor Complement C4 Miscellaneous Test Crossmatch 09/10/16 09/10/16 09/10/16 13:17 17:20 23:32 WBC RBC Hgb Hct MCV MCH MCHC RDW Plt Count Lymph % (Auto) [place] % (Auto) Lymph # [place] # Baso # Seg Neutrophils % Seg Neuts % (Manual) Lymphocytes % (Manual) Monocytes % (Manual) Eosinophils % (Manual) Basophils % (Manual) Nucleated RBC % Seg Neutrophils # Seg Neutrophils # Man Lymphocytes # (Manual) Monocytes # (Manual) Eosinophils # (Manual) PT INR Fibrinogen dRVVT Confirm Interp Factor V Activity POC ABG pH POC ABG pCO2 POC ABG pO2 Sodium Potassium Chloride Carbon Dioxide BUN Creatinine Glucose POC Glucose 199 H 186 H Lactic Acid Calcium Phosphorus Magnesium Direct Bilirubin AST ALT Alkaline Phosphatase Troponin T C-Reactive Protein Total Protein Albumin Prealbumin Triglycerides Cholesterol LDL Cholesterol Direct HDL Cholesterol Urine pH Urine WBC (Auto) Urine Creatinine Urine Total Protein Vancomycin Trough Rheumatoid Factor Complement C4 Miscellaneous Test Crossmatch See Detail 09/11/16 09/11/16 09/11/16 05:10 05:10 05:17 WBC 28.4 H RBC Hgb 9.2 L Hct 29.3 L D MCV 73 L MCH 23 L MCHC RDW 18.9 H Plt Count 452 H Lymph % (Auto) [place] % (Auto) Lymph # [place] # Baso # Seg Neutrophils % Seg Neuts % (Manual) 89.5 H Lymphocytes % (Manual) 2.0 L Monocytes % (Manual) Eosinophils % (Manual) Basophils % (Manual) Nucleated RBC % Seg Neutrophils # Seg Neutrophils # Man 25.4 H Lymphocytes # (Manual) 0.6 L Monocytes # (Manual) 1.3 H Eosinophils # (Manual) PT INR Fibrinogen dRVVT Confirm Interp Factor V Activity POC ABG pH POC ABG pCO2 POC ABG pO2 Sodium 136 L Potassium Chloride Carbon Dioxide 18 L BUN 107 H Creatinine 2.6 H Glucose 187 H POC Glucose 230 H Lactic Acid Calcium 8.3 L Phosphorus Magnesium Direct Bilirubin AST ALT Alkaline Phosphatase Troponin T C-Reactive Protein Total Protein Albumin Prealbumin Triglycerides Cholesterol LDL Cholesterol Direct HDL Cholesterol Urine pH Urine WBC (Auto) Urine Creatinine Urine Total Protein Vancomycin Trough Rheumatoid Factor Complement C4 Miscellaneous Test Crossmatch 09/11/16 09/11/16 09/11/16 05:55 12:02 17:32 WBC RBC Hgb Hct MCV MCH MCHC RDW Plt Count Lymph % (Auto) [place] % (Auto) Lymph # [place] # Baso # Seg Neutrophils % Seg Neuts % (Manual) Lymphocytes % (Manual) Monocytes % (Manual) Eosinophils % (Manual) Basophils % (Manual) Nucleated RBC % Seg Neutrophils # Seg Neutrophils # Man Lymphocytes # (Manual) Monocytes # (Manual) Eosinophils # (Manual) PT INR Fibrinogen dRVVT Confirm Interp Factor V Activity POC ABG pH POC ABG pCO2 33.8 L POC ABG pO2 Sodium Potassium Chloride Carbon Dioxide BUN Creatinine Glucose POC Glucose 191 H 239 H Lactic Acid Calcium Phosphorus Magnesium Direct Bilirubin AST ALT Alkaline Phosphatase Troponin T C-Reactive Protein Total Protein Albumin Prealbumin Triglycerides Cholesterol LDL Cholesterol Direct HDL Cholesterol Urine pH Urine WBC (Auto) Urine Creatinine Urine Total Protein Vancomycin Trough Rheumatoid Factor Complement C4 Miscellaneous Test Crossmatch 09/11/16 09/12/16 09/12/16 23:52 05:09 05:32 WBC RBC Hgb Hct MCV MCH MCHC RDW Plt Count Lymph % (Auto) [place] % (Auto) Lymph # [place] # Baso # Seg Neutrophils % Seg Neuts % (Manual) Lymphocytes % (Manual) Monocytes % (Manual) Eosinophils % (Manual) Basophils % (Manual) Nucleated RBC % Seg Neutrophils # Seg Neutrophils # Man Lymphocytes # (Manual) Monocytes # (Manual) Eosinophils # (Manual) PT INR Fibrinogen dRVVT Confirm Interp Factor V Activity POC ABG pH POC ABG pCO2 34.6 L POC ABG pO2 Sodium Potassium Chloride Carbon Dioxide BUN Creatinine Glucose POC Glucose 265 H 184 H Lactic Acid Calcium Phosphorus Magnesium Direct Bilirubin AST ALT Alkaline Phosphatase Troponin T C-Reactive Protein Total Protein Albumin Prealbumin Triglycerides Cholesterol LDL Cholesterol Direct HDL Cholesterol Urine pH Urine WBC (Auto) Urine Creatinine Urine Total Protein Vancomycin Trough Rheumatoid Factor Complement C4 Miscellaneous Test Crossmatch 09/12/16 09/12/16 09/12/16 06:45 06:45 07:22 WBC 31.7 H RBC 3.54 L Hgb 8.3 L Hct 25.9 L MCV 73 L MCH 23 L MCHC RDW 18.9 H Plt Count Lymph % (Auto) [place] % (Auto) Lymph # [place] # Baso # Seg Neutrophils % Seg Neuts % (Manual) 88.5 H Lymphocytes % (Manual) 4.5 L Monocytes % (Manual) Eosinophils % (Manual) Basophils % (Manual) Nucleated RBC % Seg Neutrophils # Seg Neutrophils # Man 28.1 H Lymphocytes # (Manual) Monocytes # (Manual) 1.0 H Eosinophils # (Manual) PT INR Fibrinogen dRVVT Confirm Interp Factor V Activity POC ABG pH POC ABG pCO2 POC ABG pO2 Sodium Potassium Chloride Carbon Dioxide 20 L BUN 115 H Creatinine 2.7 H Glucose 165 H POC Glucose Lactic Acid Calcium 8.0 L Phosphorus Magnesium Direct Bilirubin AST ALT Alkaline Phosphatase Troponin T C-Reactive Protein Total Protein Albumin Prealbumin Triglycerides 217 H Cholesterol LDL Cholesterol Direct HDL Cholesterol Urine pH Urine WBC (Auto) Urine Creatinine Urine Total Protein Vancomycin Trough Rheumatoid Factor Complement C4 Miscellaneous Test Crossmatch 09/12/16 09/12/16 09/12/16 07:22 09:59 12:21 WBC RBC Hgb Hct MCV MCH MCHC RDW Plt Count Lymph % (Auto) [place] % (Auto) Lymph # [place] # Baso # Seg Neutrophils % Seg Neuts % (Manual) Lymphocytes % (Manual) Monocytes % (Manual) Eosinophils % (Manual) Basophils % (Manual) Nucleated RBC % Seg Neutrophils # Seg Neutrophils # Man Lymphocytes # (Manual) Monocytes # (Manual) Eosinophils # (Manual) PT INR Fibrinogen dRVVT Confirm Interp Positive H Factor V Activity POC ABG pH POC ABG pCO2 POC ABG pO2 Sodium Potassium Chloride Carbon Dioxide BUN Creatinine Glucose POC Glucose 224 H Lactic Acid Calcium Phosphorus Magnesium Direct Bilirubin AST ALT Alkaline Phosphatase Troponin T C-Reactive Protein 1.70 H Total Protein Albumin Prealbumin Triglycerides Cholesterol LDL Cholesterol Direct HDL Cholesterol Urine pH Urine WBC (Auto) Urine Creatinine Urine Total Protein Vancomycin Trough Rheumatoid Factor Complement C4 Miscellaneous Test Crossmatch 07/09/12/16 09/13/16 16:51 23:28 04:00 WBC 45.0 H* RBC Hgb 9.4 L Hct MCV 75 L MCH 23 L MCHC RDW 19.0 H Plt Count 470 H Lymph % (Auto) [place] % (Auto) Lymph # [place] # Baso # Seg Neutrophils % Seg Neuts % (Manual) 89.0 H Lymphocytes % (Manual) 5.0 L Monocytes % (Manual) Eosinophils % (Manual) Basophils % (Manual) Nucleated RBC % Seg Neutrophils # Seg Neutrophils # Man 40.1 H Lymphocytes # (Manual) Monocytes # (Manual) Eosinophils # (Manual) PT INR Fibrinogen dRVVT Confirm Interp Factor V Activity POC ABG pH POC ABG pCO2 POC ABG pO2 Sodium Potassium Chloride Carbon Dioxide BUN Creatinine Glucose POC Glucose 169 H 150 H Lactic Acid Calcium Phosphorus Magnesium Direct Bilirubin AST ALT Alkaline Phosphatase Troponin T C-Reactive Protein Total Protein Albumin Prealbumin Triglycerides Cholesterol LDL Cholesterol Direct HDL Cholesterol Urine pH Urine WBC (Auto) Urine Creatinine Urine Total Protein Vancomycin Trough Rheumatoid Factor Complement C4 Miscellaneous Test Crossmatch 09/13/16 09/13/16 09/13/16 04:00 11:26 17:31 WBC RBC Hgb Hct MCV MCH MCHC RDW Plt Count Lymph % (Auto) [place] % (Auto) Lymph # [place] # Baso # Seg Neutrophils % Seg Neuts % (Manual) Lymphocytes % (Manual) Monocytes % (Manual) Eosinophils % (Manual) Basophils % (Manual) Nucleated RBC % Seg Neutrophils # Seg Neutrophils # Man Lymphocytes # (Manual) Monocytes # (Manual) Eosinophils # (Manual) PT INR Fibrinogen dRVVT Confirm Interp Factor V Activity POC ABG pH POC ABG pCO2 POC ABG pO2 Sodium Potassium Chloride Carbon Dioxide 20 L BUN 116 H Creatinine 3.0 H Glucose 172 H POC Glucose 140 H 183 H Lactic Acid Calcium Phosphorus Magnesium Direct Bilirubin AST ALT Alkaline Phosphatase Troponin T C-Reactive Protein Total Protein 6.2 L Albumin 2.9 L Prealbumin Triglycerides Cholesterol LDL Cholesterol Direct HDL Cholesterol Urine pH Urine WBC (Auto) Urine Creatinine Urine Total Protein Vancomycin Trough Rheumatoid Factor Complement C4 Miscellaneous Test Crossmatch 09/13/16 09/14/16 09/14/16 23:23 04:06 04:07 WBC 29.4 H RBC Hgb 8.9 L Hct 27.3 L MCV 75 L MCH 24 L MCHC RDW 19.1 H Plt Count Lymph % (Auto) [place] % (Auto) Lymph # [place] # Baso # Seg Neutrophils % Seg Neuts % (Manual) 84.0 H Lymphocytes % (Manual) 6.0 L Monocytes % (Manual) 9.0 H Eosinophils % (Manual) Basophils % (Manual) Nucleated RBC % Seg Neutrophils # Seg Neutrophils # Man 24.7 H Lymphocytes # (Manual) Monocytes # (Manual) 2.6 H Eosinophils # (Manual) PT INR Fibrinogen dRVVT Confirm Interp Factor V Activity POC ABG pH 7.342 L POC ABG pCO2 POC ABG pO2 116 H Sodium Potassium Chloride Carbon Dioxide BUN Creatinine Glucose POC Glucose 154 H Lactic Acid Calcium Phosphorus Magnesium Direct Bilirubin AST ALT Alkaline Phosphatase Troponin T C-Reactive Protein Total Protein Albumin Prealbumin Triglycerides Cholesterol LDL Cholesterol Direct HDL Cholesterol Urine pH Urine WBC (Auto) Urine Creatinine Urine Total Protein Vancomycin Trough Rheumatoid Factor Complement C4 Miscellaneous Test Crossmatch 09/14/16 09/14/16 09/14/16 04:07 05:29 12:19 WBC RBC Hgb Hct MCV MCH MCHC RDW Plt Count Lymph % (Auto) [place] % (Auto) Lymph # [place] # Baso # Seg Neutrophils % Seg Neuts % (Manual) Lymphocytes % (Manual) Monocytes % (Manual) Eosinophils % (Manual) Basophils % (Manual) Nucleated RBC % Seg Neutrophils # Seg Neutrophils # Man Lymphocytes # (Manual) Monocytes # (Manual) Eosinophils # (Manual) PT INR Fibrinogen dRVVT Confirm Interp Factor V Activity POC ABG pH POC ABG pCO2 POC ABG pO2 Sodium 136 L Potassium Chloride Carbon Dioxide 18 L BUN 121 H Creatinine 2.8 H Glucose 214 H POC Glucose 239 H 181 H Lactic Acid Calcium Phosphorus Magnesium Direct Bilirubin AST ALT Alkaline Phosphatase Troponin T C-Reactive Protein Total Protein Albumin Prealbumin Triglycerides Cholesterol LDL Cholesterol Direct HDL Cholesterol Urine pH Urine WBC (Auto) Urine Creatinine Urine Total Protein Vancomycin Trough Rheumatoid Factor Complement C4 Miscellaneous Test Crossmatch 09/14/16 09/14/16 09/15/16 18:12 23:37 05:00 WBC 26.1 H RBC 3.05 L Hgb 7.2 L Hct 22.9 L MCV 75 L MCH 24 L MCHC RDW 19.0 H Plt Count Lymph % (Auto) [place] % (Auto) Lymph # [place] # Baso # Seg Neutrophils % Seg Neuts % (Manual) Lymphocytes % (Manual) Monocytes % (Manual) Eosinophils % (Manual) Basophils % (Manual) Nucleated RBC % Seg Neutrophils # Seg Neutrophils # Man Lymphocytes # (Manual) Monocytes # (Manual) Eosinophils # (Manual) PT INR Fibrinogen dRVVT Confirm Interp Factor V Activity POC ABG pH POC ABG pCO2 POC ABG pO2 Sodium Potassium Chloride Carbon Dioxide BUN Creatinine Glucose POC Glucose 266 H 154 H Lactic Acid Calcium Phosphorus Magnesium Direct Bilirubin AST ALT Alkaline Phosphatase Troponin T C-Reactive Protein Total Protein Albumin Prealbumin Triglycerides Cholesterol LDL Cholesterol Direct HDL Cholesterol Urine pH Urine WBC (Auto) Urine Creatinine Urine Total Protein Vancomycin Trough Rheumatoid Factor Complement C4 Miscellaneous Test Crossmatch 09/15/16 09/15/16 09/15/16 05:00 05:17 12:45 WBC RBC Hgb Hct MCV MCH MCHC RDW Plt Count Lymph % (Auto) [place] % (Auto) Lymph # [place] # Baso # Seg Neutrophils % Seg Neuts % (Manual) Lymphocytes % (Manual) Monocytes % (Manual) Eosinophils % (Manual) Basophils % (Manual) Nucleated RBC % Seg Neutrophils # Seg Neutrophils # Man Lymphocytes # (Manual) Monocytes # (Manual) Eosinophils # (Manual) PT INR Fibrinogen dRVVT Confirm Interp Factor V Activity POC ABG pH POC ABG pCO2 POC ABG pO2 Sodium Potassium 5.2 H Chloride Carbon Dioxide 18 L BUN 139 H Creatinine 3.7 H Glucose 227 H POC Glucose 226 H 244 H Lactic Acid Calcium 8.3 L Phosphorus Magnesium Direct Bilirubin AST ALT Alkaline Phosphatase Troponin T C-Reactive Protein Total Protein Albumin Prealbumin Triglycerides Cholesterol LDL Cholesterol Direct HDL Cholesterol Urine pH Urine WBC (Auto) Urine Creatinine Urine Total Protein Vancomycin Trough Rheumatoid Factor Complement C4 Miscellaneous Test Crossmatch 09/15/16 09/15/16 09/15/16 14:32 17:33 23:35 WBC RBC Hgb Hct MCV MCH MCHC RDW Plt Count Lymph % (Auto) [place] % (Auto) Lymph # [place] # Baso # Seg Neutrophils % Seg Neuts % (Manual) Lymphocytes % (Manual) Monocytes % (Manual) Eosinophils % (Manual) Basophils % (Manual) Nucleated RBC % Seg Neutrophils # Seg Neutrophils # Man Lymphocytes # (Manual) Monocytes # (Manual) Eosinophils # (Manual) PT INR Fibrinogen dRVVT Confirm Interp Factor V Activity POC ABG pH POC ABG pCO2 27.7 L POC ABG pO2 120 H Sodium Potassium Chloride Carbon Dioxide BUN Creatinine Glucose POC Glucose 232 H 167 H Lactic Acid Calcium Phosphorus Magnesium Direct Bilirubin AST ALT Alkaline Phosphatase Troponin T C-Reactive Protein Total Protein Albumin Prealbumin Triglycerides Cholesterol LDL Cholesterol Direct HDL Cholesterol Urine pH Urine WBC (Auto) Urine Creatinine Urine Total Protein Vancomycin Trough Rheumatoid Factor Complement C4 Miscellaneous Test Crossmatch 09/16/16 09/16/16 09/16/16 03:58 10:27 10:27 WBC 19.0 H RBC 2.77 L Hgb 6.5 L Hct 20.9 L MCV 76 L MCH 23 L MCHC RDW 19.3 H Plt Count Lymph % (Auto) 11.0 L [place] % (Auto) Lymph # [place] # 1.1 H Baso # Seg Neutrophils % 82.5 H Seg Neuts % (Manual) Lymphocytes % (Manual) Monocytes % (Manual) Eosinophils % (Manual) Basophils % (Manual) Nucleated RBC % Seg Neutrophils # 15.7 H Seg Neutrophils # Man Lymphocytes # (Manual) Monocytes # (Manual) Eosinophils # (Manual) PT INR Fibrinogen dRVVT Confirm Interp Factor V Activity POC ABG pH POC ABG pCO2 POC ABG pO2 Sodium Potassium Chloride 109.3 H Carbon Dioxide 18 L BUN 139 H Creatinine 4.1 H Glucose 144 H POC Glucose 146 H Lactic Acid Calcium 8.1 L Phosphorus Magnesium Direct Bilirubin AST ALT Alkaline Phosphatase Troponin T C-Reactive Protein Total Protein Albumin Prealbumin Triglycerides Cholesterol LDL Cholesterol Direct HDL Cholesterol Urine pH Urine WBC (Auto) Urine Creatinine Urine Total Protein Vancomycin Trough Rheumatoid Factor Complement C4 Miscellaneous Test Crossmatch 09/16/16 09/16/16 09/16/16 12:04 12:10 13:55 WBC RBC Hgb Hct MCV MCH MCHC RDW Plt Count Lymph % (Auto) [place] % (Auto) Lymph # [place] # Baso # Seg Neutrophils % Seg Neuts % (Manual) Lymphocytes % (Manual) Monocytes % (Manual) Eosinophils % (Manual) Basophils % (Manual) Nucleated RBC % Seg Neutrophils # Seg Neutrophils # Man Lymphocytes # (Manual) Monocytes # (Manual) Eosinophils # (Manual) PT INR Fibrinogen dRVVT Confirm Interp Factor V Activity POC ABG pH POC ABG pCO2 32.9 L POC ABG pO2 Sodium Potassium Chloride Carbon Dioxide BUN Creatinine Glucose POC Glucose 185 H Lactic Acid Calcium Phosphorus Magnesium Direct Bilirubin AST ALT Alkaline Phosphatase Troponin T C-Reactive Protein Total Protein Albumin Prealbumin Triglycerides Cholesterol LDL Cholesterol Direct HDL Cholesterol Urine pH Urine WBC (Auto) Urine Creatinine Urine Total Protein Vancomycin Trough Rheumatoid Factor Complement C4 Miscellaneous Test Crossmatch See Detail 09/16/16 09/16/16 09/16/16 17:55 19:19 23:48 WBC RBC Hgb Hct MCV MCH MCHC RDW Plt Count Lymph % (Auto) [place] % (Auto) Lymph # [place] # Baso # Seg Neutrophils % Seg Neuts % (Manual) Lymphocytes % (Manual) Monocytes % (Manual) Eosinophils % (Manual) Basophils % (Manual) Nucleated RBC % Seg Neutrophils # Seg Neutrophils # Man Lymphocytes # (Manual) Monocytes # (Manual) Eosinophils # (Manual) PT INR Fibrinogen dRVVT Confirm Interp Factor V Activity POC ABG pH POC ABG pCO2 POC ABG pO2 Sodium Potassium Chloride Carbon Dioxide BUN Creatinine Glucose POC Glucose 222 H 107 H Lactic Acid Calcium Phosphorus Magnesium Direct Bilirubin AST ALT Alkaline Phosphatase Troponin T C-Reactive Protein Total Protein Albumin Prealbumin Triglycerides Cholesterol LDL Cholesterol Direct HDL Cholesterol Urine pH Urine WBC (Auto) Urine Creatinine 47.4 H Urine Total Protein 16 H Vancomycin Trough Rheumatoid Factor Complement C4 Miscellaneous Test Crossmatch 09/17/16 09/17/16 09/17/16 03:45 03:45 04:55 WBC 19.6 H RBC 3.41 L Hgb 8.5 L Hct 26.7 L MCV 78 L MCH 25 L MCHC RDW 19.9 H Plt Count Lymph % (Auto) 9.3 L [place] % (Auto) Lymph # [place] # 1.2 H Baso # Seg Neutrophils % 83.9 H Seg Neuts % (Manual) Lymphocytes % (Manual) Monocytes % (Manual) Eosinophils % (Manual) Basophils % (Manual) Nucleated RBC % Seg Neutrophils # 16.4 H Seg Neutrophils # Man Lymphocytes # (Manual) Monocytes # (Manual) Eosinophils # (Manual) PT INR Fibrinogen dRVVT Confirm Interp Factor V Activity POC ABG pH POC ABG pCO2 POC ABG pO2 Sodium 146 H Potassium 5.1 H Chloride 110.9 H Carbon Dioxide 16 L BUN 146 H Creatinine 4.0 H Glucose 108 H POC Glucose 133 H Lactic Acid Calcium Phosphorus Magnesium 3.00 H Direct Bilirubin AST ALT Alkaline Phosphatase Troponin T C-Reactive Protein Total Protein Albumin Prealbumin Triglycerides Cholesterol LDL Cholesterol Direct HDL Cholesterol Urine pH Urine WBC (Auto) Urine Creatinine Urine Total Protein Vancomycin Trough Rheumatoid Factor Complement C4 Miscellaneous Test Crossmatch 09/17/16 09/17/16 09/17/16 11:15 17:33 23:47 WBC RBC Hgb Hct MCV MCH MCHC RDW Plt Count Lymph % (Auto) [place] % (Auto) Lymph # [place] # Baso # Seg Neutrophils % Seg Neuts % (Manual) Lymphocytes % (Manual) Monocytes % (Manual) Eosinophils % (Manual) Basophils % (Manual) Nucleated RBC % Seg Neutrophils # Seg Neutrophils # Man Lymphocytes # (Manual) Monocytes # (Manual) Eosinophils # (Manual) PT INR Fibrinogen dRVVT Confirm Interp Factor V Activity POC ABG pH POC ABG pCO2 POC ABG pO2 Sodium Potassium Chloride Carbon Dioxide BUN Creatinine Glucose POC Glucose 176 H 246 H 148 H Lactic Acid Calcium Phosphorus Magnesium Direct Bilirubin AST ALT Alkaline Phosphatase Troponin T C-Reactive Protein Total Protein Albumin Prealbumin Triglycerides Cholesterol LDL Cholesterol Direct HDL Cholesterol Urine pH Urine WBC (Auto) Urine Creatinine Urine Total Protein Vancomycin Trough Rheumatoid Factor Complement C4 Miscellaneous Test Crossmatch 09/18/16 09/18/16 09/18/16 05:33 08:31 08:31 WBC 18.0 H RBC 3.17 L Hgb 9.0 L Hct 25.7 L MCV MCH MCHC 35 H RDW 20.4 H Plt Count Lymph % (Auto) [place] % (Auto) Lymph # [place] # Baso # Seg Neutrophils % Seg Neuts % (Manual) Lymphocytes % (Manual) Monocytes % (Manual) Eosinophils % (Manual) Basophils % (Manual) Nucleated RBC % Seg Neutrophils # Seg Neutrophils # Man Lymphocytes # (Manual) Monocytes # (Manual) Eosinophils # (Manual) PT INR Fibrinogen dRVVT Confirm Interp Factor V Activity POC ABG pH POC ABG pCO2 POC ABG pO2 Sodium Potassium Chloride Carbon Dioxide 15 L BUN 124 H Creatinine 3.8 H Glucose POC Glucose 120 H Lactic Acid Calcium 8.1 L Phosphorus Magnesium Direct Bilirubin AST ALT Alkaline Phosphatase Troponin T C-Reactive Protein Total Protein Albumin Prealbumin Triglycerides Cholesterol LDL Cholesterol Direct HDL Cholesterol Urine pH Urine WBC (Auto) Urine Creatinine Urine Total Protein Vancomycin Trough Rheumatoid Factor Complement C4 Miscellaneous Test Crossmatch 09/18/16 09/18/16 09/18/16 12:03 15:34 17:50 WBC RBC Hgb Hct MCV MCH MCHC RDW Plt Count Lymph % (Auto) [place] % (Auto) Lymph # [place] # Baso # Seg Neutrophils % Seg Neuts % (Manual) Lymphocytes % (Manual) Monocytes % (Manual) Eosinophils % (Manual) Basophils % (Manual) Nucleated RBC % Seg Neutrophils # Seg Neutrophils # Man Lymphocytes # (Manual) Monocytes # (Manual) Eosinophils # (Manual) PT INR Fibrinogen dRVVT Confirm Interp Factor V Activity POC ABG pH POC ABG pCO2 25.7 L POC ABG pO2 66 L Sodium Potassium Chloride Carbon Dioxide BUN Creatinine Glucose POC Glucose 156 H 220 H Lactic Acid Calcium Phosphorus Magnesium Direct Bilirubin AST ALT Alkaline Phosphatase Troponin T C-Reactive Protein Total Protein Albumin Prealbumin Triglycerides Cholesterol LDL Cholesterol Direct HDL Cholesterol Urine pH Urine WBC (Auto) Urine Creatinine Urine Total Protein Vancomycin Trough Rheumatoid Factor Complement C4 Miscellaneous Test Crossmatch 09/19/16 09/19/16 09/19/16 06:21 09:50 09:50 WBC 17.1 H RBC 3.49 L Hgb 9.0 L Hct 28.1 L MCV MCH 26 L MCHC RDW 20.8 H Plt Count Lymph % (Auto) 11.5 L [place] % (Auto) 7.5 H Lymph # [place] # 1.3 H Baso # Seg Neutrophils % 79.8 H Seg Neuts % (Manual) Lymphocytes % (Manual) Monocytes % (Manual) Eosinophils % (Manual) Basophils % (Manual) Nucleated RBC % Seg Neutrophils # 13.7 H Seg Neutrophils # Man Lymphocytes # (Manual) Monocytes # (Manual) Eosinophils # (Manual) PT INR Fibrinogen dRVVT Confirm Interp Factor V Activity POC ABG pH POC ABG pCO2 POC ABG pO2 Sodium Potassium Chloride 108.6 H Carbon Dioxide 15 L BUN 125 H Creatinine 4.1 H Glucose 124 H POC Glucose 119 H Lactic Acid Calcium Phosphorus Magnesium Direct Bilirubin AST ALT Alkaline Phosphatase Troponin T C-Reactive Protein Total Protein Albumin Prealbumin Triglycerides Cholesterol LDL Cholesterol Direct HDL Cholesterol Urine pH Urine WBC (Auto) Urine Creatinine Urine Total Protein Vancomycin Trough Rheumatoid Factor Complement C4 Miscellaneous Test Crossmatch 09/19/16 09/19/16 09/19/16 11:25 17:53 23:36 WBC RBC Hgb Hct MCV MCH MCHC RDW Plt Count Lymph % (Auto) [place] % (Auto) Lymph # [place] # Baso # Seg Neutrophils % Seg Neuts % (Manual) Lymphocytes % (Manual) Monocytes % (Manual) Eosinophils % (Manual) Basophils % (Manual) Nucleated RBC % Seg Neutrophils # Seg Neutrophils # Man Lymphocytes # (Manual) Monocytes # (Manual) Eosinophils # (Manual) PT INR Fibrinogen dRVVT Confirm Interp Factor V Activity POC ABG pH POC ABG pCO2 POC ABG pO2 Sodium Potassium Chloride Carbon Dioxide BUN Creatinine Glucose POC Glucose 160 H 245 H 121 H Lactic Acid Calcium Phosphorus Magnesium Direct Bilirubin AST ALT Alkaline Phosphatase Troponin T C-Reactive Protein Total Protein Albumin Prealbumin Triglycerides Cholesterol LDL Cholesterol Direct HDL Cholesterol Urine pH Urine WBC (Auto) Urine Creatinine Urine Total Protein Vancomycin Trough Rheumatoid Factor Complement C4 Miscellaneous Test Crossmatch 09/20/16 09/20/16 09/20/16 04:10 04:10 04:10 WBC 17.0 H RBC 3.21 L Hgb 8.2 L Hct 25.5 L MCV MCH 26 L MCHC RDW 20.9 H Plt Count Lymph % (Auto) [place] % (Auto) Lymph # [place] # Baso # Seg Neutrophils % Seg Neuts % (Manual) Lymphocytes % (Manual) Monocytes % (Manual) Eosinophils % (Manual) Basophils % (Manual) Nucleated RBC % Seg Neutrophils # Seg Neutrophils # Man Lymphocytes # (Manual) Monocytes # (Manual) Eosinophils # (Manual) PT INR Fibrinogen dRVVT Confirm Interp Factor V Activity POC ABG pH POC ABG pCO2 POC ABG pO2 Sodium Potassium Chloride 111.0 H Carbon Dioxide 16 L BUN 129 H Creatinine 3.7 H Glucose 115 H POC Glucose Lactic Acid Calcium 8.2 L Phosphorus Magnesium Direct Bilirubin AST ALT Alkaline Phosphatase Troponin T C-Reactive Protein Total Protein Albumin Prealbumin Triglycerides 243 H Cholesterol LDL Cholesterol Direct HDL Cholesterol Urine pH Urine WBC (Auto) Urine Creatinine Urine Total Protein Vancomycin Trough Rheumatoid Factor Complement C4 Miscellaneous Test Crossmatch 09/20/16 09/20/16 09/20/16 05:40 11:52 16:50 WBC RBC Hgb Hct MCV MCH MCHC RDW Plt Count Lymph % (Auto) [place] % (Auto) Lymph # [place] # Baso # Seg Neutrophils % Seg Neuts % (Manual) Lymphocytes % (Manual) Monocytes % (Manual) Eosinophils % (Manual) Basophils % (Manual) Nucleated RBC % Seg Neutrophils # Seg Neutrophils # Man Lymphocytes # (Manual) Monocytes # (Manual) Eosinophils # (Manual) PT INR Fibrinogen dRVVT Confirm Interp Factor V Activity POC ABG pH POC ABG pCO2 POC ABG pO2 Sodium Potassium Chloride Carbon Dioxide BUN Creatinine Glucose POC Glucose 131 H 183 H 236 H Lactic Acid Calcium Phosphorus Magnesium Direct Bilirubin AST ALT Alkaline Phosphatase Troponin T C-Reactive Protein Total Protein Albumin Prealbumin Triglycerides Cholesterol LDL Cholesterol Direct HDL Cholesterol Urine pH Urine WBC (Auto) Urine Creatinine Urine Total Protein Vancomycin Trough Rheumatoid Factor Complement C4 Miscellaneous Test Crossmatch 09/20/16 09/21/16 09/21/16 23:51 03:30 04:44 WBC RBC Hgb Hct MCV MCH MCHC RDW Plt Count Lymph % (Auto) [place] % (Auto) Lymph # [place] # Baso # Seg Neutrophils % Seg Neuts % (Manual) Lymphocytes % (Manual) Monocytes % (Manual) Eosinophils % (Manual) Basophils % (Manual) Nucleated RBC % Seg Neutrophils # Seg Neutrophils # Man Lymphocytes # (Manual) Monocytes # (Manual) Eosinophils # (Manual) PT INR Fibrinogen dRVVT Confirm Interp Factor V Activity POC ABG pH POC ABG pCO2 POC ABG pO2 Sodium Potassium Chloride Carbon Dioxide BUN Creatinine Glucose POC Glucose 114 H 141 H Lactic Acid Calcium Phosphorus Magnesium 2.70 H Direct Bilirubin AST ALT Alkaline Phosphatase Troponin T C-Reactive Protein Total Protein Albumin Prealbumin Triglycerides Cholesterol LDL Cholesterol Direct HDL Cholesterol Urine pH Urine WBC (Auto) Urine Creatinine Urine Total Protein Vancomycin Trough Rheumatoid Factor Complement C4 Miscellaneous Test Crossmatch 09/21/16 09/21/16 09/21/16 07:45 07:45 10:01 WBC 13.8 H RBC 2.94 L Hgb 7.5 L Hct 23.5 L MCV MCH 26 L MCHC RDW 21.2 H Plt Count Lymph % (Auto) 6.9 L [place] % (Auto) 9.4 H Lymph # 0.9 L [place] # 1.3 H Baso # Seg Neutrophils % 83.2 H Seg Neuts % (Manual) Lymphocytes % (Manual) Monocytes % (Manual) Eosinophils % (Manual) Basophils % (Manual) Nucleated RBC % Seg Neutrophils # 11.5 H Seg Neutrophils # Man Lymphocytes # (Manual) Monocytes # (Manual) Eosinophils # (Manual) PT INR Fibrinogen dRVVT Confirm Interp Factor V Activity POC ABG pH 7.308 L POC ABG pCO2 31.9 L POC ABG pO2 148 H Sodium 147 H Potassium Chloride 114.2 H Carbon Dioxide 15 L BUN 120 H Creatinine 3.9 H Glucose 156 H POC Glucose Lactic Acid Calcium 8.2 L Phosphorus Magnesium Direct Bilirubin AST ALT Alkaline Phosphatase Troponin T C-Reactive Protein Total Protein Albumin Prealbumin Triglycerides Cholesterol LDL Cholesterol Direct HDL Cholesterol Urine pH Urine WBC (Auto) Urine Creatinine Urine Total Protein Vancomycin Trough Rheumatoid Factor Complement C4 Miscellaneous Test Crossmatch 09/21/16 09/21/16 09/21/16 12:00 12:03 13:00 WBC RBC Hgb Hct MCV MCH MCHC RDW Plt Count Lymph % (Auto) [place] % (Auto) Lymph # [place] # Baso # Seg Neutrophils % Seg Neuts % (Manual) Lymphocytes % (Manual) Monocytes % (Manual) Eosinophils % (Manual) Basophils % (Manual) Nucleated RBC % Seg Neutrophils # Seg Neutrophils # Man Lymphocytes # (Manual) Monocytes # (Manual) Eosinophils # (Manual) PT INR Fibrinogen dRVVT Confirm Interp Factor V Activity POC ABG pH POC ABG pCO2 POC ABG pO2 Sodium Potassium Chloride Carbon Dioxide BUN Creatinine Glucose POC Glucose 163 H Lactic Acid Calcium Phosphorus Magnesium Direct Bilirubin AST ALT Alkaline Phosphatase Troponin T C-Reactive Protein Total Protein Albumin Prealbumin Triglycerides Cholesterol LDL Cholesterol Direct HDL Cholesterol Urine pH Urine WBC (Auto) Urine Creatinine 54.8 H Urine Total Protein Vancomycin Trough 2.3 L Rheumatoid Factor Complement C4 Miscellaneous Test Crossmatch 09/21/16 09/21/16 09/22/16 16:51 23:17 06:27 WBC RBC Hgb Hct MCV MCH MCHC RDW Plt Count Lymph % (Auto) [place] % (Auto) Lymph # [place] # Baso # Seg Neutrophils % Seg Neuts % (Manual) Lymphocytes % (Manual) Monocytes % (Manual) Eosinophils % (Manual) Basophils % (Manual) Nucleated RBC % Seg Neutrophils # Seg Neutrophils # Man Lymphocytes # (Manual) Monocytes # (Manual) Eosinophils # (Manual) PT INR Fibrinogen dRVVT Confirm Interp Factor V Activity POC ABG pH POC ABG pCO2 POC ABG pO2 Sodium Potassium Chloride Carbon Dioxide BUN Creatinine Glucose POC Glucose 206 H 114 H 115 H Lactic Acid Calcium Phosphorus Magnesium Direct Bilirubin AST ALT Alkaline Phosphatase Troponin T C-Reactive Protein Total Protein Albumin Prealbumin Triglycerides Cholesterol LDL Cholesterol Direct HDL Cholesterol Urine pH Urine WBC (Auto) Urine Creatinine Urine Total Protein Vancomycin Trough Rheumatoid Factor Complement C4 Miscellaneous Test Crossmatch 09/22/16 09/22/16 09/22/16 07:50 07:50 12:00 WBC 17.8 H RBC 3.04 L Hgb 8.0 L Hct 24.7 L MCV MCH 26 L MCHC RDW 21.6 H Plt Count Lymph % (Auto) [place] % (Auto) Lymph # [place] # Baso # Seg Neutrophils % Seg Neuts % (Manual) Lymphocytes % (Manual) Monocytes % (Manual) Eosinophils % (Manual) Basophils % (Manual) Nucleated RBC % Seg Neutrophils # Seg Neutrophils # Man Lymphocytes # (Manual) Monocytes # (Manual) Eosinophils # (Manual) PT INR Fibrinogen dRVVT Confirm Interp Factor V Activity POC ABG pH POC ABG pCO2 POC ABG pO2 Sodium 150 H Potassium Chloride 118.2 H Carbon Dioxide 14 L BUN 111 H Creatinine 3.7 H Glucose 157 H POC Glucose 183 H Lactic Acid Calcium Phosphorus Magnesium Direct Bilirubin AST ALT Alkaline Phosphatase Troponin T C-Reactive Protein Total Protein Albumin Prealbumin Triglycerides Cholesterol LDL Cholesterol Direct HDL Cholesterol Urine pH Urine WBC (Auto) Urine Creatinine Urine Total Protein Vancomycin Trough Rheumatoid Factor Complement C4 Miscellaneous Test Crossmatch 09/22/16 09/22/16 09/23/16 17:29 23:10 05:00 WBC 19.2 H RBC 3.13 L Hgb 8.0 L Hct 25.2 L MCV MCH 26 L MCHC RDW 22.1 H Plt Count Lymph % (Auto) [place] % (Auto) Lymph # [place] # Baso # Seg Neutrophils % Seg Neuts % (Manual) 92.0 H Lymphocytes % (Manual) 3.0 L Monocytes % (Manual) Eosinophils % (Manual) Basophils % (Manual) Nucleated RBC % Seg Neutrophils # Seg Neutrophils # Man 17.7 H Lymphocytes # (Manual) 0.6 L Monocytes # (Manual) Eosinophils # (Manual) PT INR Fibrinogen dRVVT Confirm Interp Factor V Activity POC ABG pH POC ABG pCO2 POC ABG pO2 Sodium Potassium Chloride Carbon Dioxide BUN Creatinine Glucose POC Glucose 197 H 169 H Lactic Acid Calcium Phosphorus Magnesium Direct Bilirubin AST ALT Alkaline Phosphatase Troponin T C-Reactive Protein Total Protein Albumin Prealbumin Triglycerides Cholesterol LDL Cholesterol Direct HDL Cholesterol Urine pH Urine WBC (Auto) Urine Creatinine Urine Total Protein Vancomycin Trough Rheumatoid Factor Complement C4 Miscellaneous Test Crossmatch 09/23/16 09/23/16 09/23/16 05:00 05:00 05:10 WBC RBC Hgb Hct MCV MCH MCHC RDW Plt Count Lymph % (Auto) [place] % (Auto) Lymph # [place] # Baso # Seg Neutrophils % Seg Neuts % (Manual) Lymphocytes % (Manual) Monocytes % (Manual) Eosinophils % (Manual) Basophils % (Manual) Nucleated RBC % Seg Neutrophils # Seg Neutrophils # Man Lymphocytes # (Manual) Monocytes # (Manual) Eosinophils # (Manual) PT INR Fibrinogen dRVVT Confirm Interp Factor V Activity POC ABG pH POC ABG pCO2 POC ABG pO2 Sodium 147 H Potassium 3.2 L Chloride 115.7 H Carbon Dioxide 13 L BUN 111 H Creatinine 3.8 H Glucose 194 H POC Glucose 188 H Lactic Acid Calcium 7.3 L D Phosphorus Magnesium Direct Bilirubin AST ALT Alkaline Phosphatase Troponin T C-Reactive Protein 3.20 H Total Protein Albumin Prealbumin Triglycerides Cholesterol LDL Cholesterol Direct HDL Cholesterol Urine pH Urine WBC (Auto) Urine Creatinine Urine Total Protein Vancomycin Trough Rheumatoid Factor Complement C4 Miscellaneous Test Crossmatch 09/23/16 09/23/16 09/23/16 11:37 12:29 18:01 WBC RBC Hgb Hct MCV MCH MCHC RDW Plt Count Lymph % (Auto) [place] % (Auto) Lymph # [place] # Baso # Seg Neutrophils % Seg Neuts % (Manual) Lymphocytes % (Manual) Monocytes % (Manual) Eosinophils % (Manual) Basophils % (Manual) Nucleated RBC % Seg Neutrophils # Seg Neutrophils # Man Lymphocytes # (Manual) Monocytes # (Manual) Eosinophils # (Manual) PT INR Fibrinogen dRVVT Confirm Interp Factor V Activity POC ABG pH POC ABG pCO2 18.9 L POC ABG pO2 143 H Sodium Potassium Chloride Carbon Dioxide BUN Creatinine Glucose POC Glucose 153 H 108 H Lactic Acid Calcium Phosphorus Magnesium Direct Bilirubin AST ALT Alkaline Phosphatase Troponin T C-Reactive Protein Total Protein Albumin Prealbumin Triglycerides Cholesterol LDL Cholesterol Direct HDL Cholesterol Urine pH Urine WBC (Auto) Urine Creatinine Urine Total Protein Vancomycin Trough Rheumatoid Factor Complement C4 Miscellaneous Test Crossmatch 09/23/16 09/23/16 09/24/16 21:19 23:43 05:16 WBC RBC Hgb Hct MCV MCH MCHC RDW Plt Count Lymph % (Auto) [place] % (Auto) Lymph # [place] # Baso # Seg Neutrophils % Seg Neuts % (Manual) Lymphocytes % (Manual) Monocytes % (Manual) Eosinophils % (Manual) Basophils % (Manual) Nucleated RBC % Seg Neutrophils # Seg Neutrophils # Man Lymphocytes # (Manual) Monocytes # (Manual) Eosinophils # (Manual) PT INR Fibrinogen dRVVT Confirm Interp Factor V Activity POC ABG pH POC ABG pCO2 17.3 L POC ABG pO2 112 H Sodium Potassium Chloride Carbon Dioxide BUN Creatinine Glucose POC Glucose 143 H 164 H Lactic Acid Calcium Phosphorus Magnesium Direct Bilirubin AST ALT Alkaline Phosphatase Troponin T C-Reactive Protein Total Protein Albumin Prealbumin Triglycerides Cholesterol LDL Cholesterol Direct HDL Cholesterol Urine pH Urine WBC (Auto) Urine Creatinine Urine Total Protein Vancomycin Trough Rheumatoid Factor Complement C4 Miscellaneous Test Crossmatch 09/24/16 09/24/16 09/24/16 05:21 11:58 17:06 WBC RBC Hgb Hct MCV MCH MCHC RDW Plt Count Lymph % (Auto) [place] % (Auto) Lymph # [place] # Baso # Seg Neutrophils % Seg Neuts % (Manual) Lymphocytes % (Manual) Monocytes % (Manual) Eosinophils % (Manual) Basophils % (Manual) Nucleated RBC % Seg Neutrophils # Seg Neutrophils # Man Lymphocytes # (Manual) Monocytes # (Manual) Eosinophils # (Manual) PT INR Fibrinogen dRVVT Confirm Interp Factor V Activity POC ABG pH POC ABG pCO2 POC ABG pO2 Sodium Potassium Chloride Carbon Dioxide 10 L BUN 103 H Creatinine 4.3 H Glucose 163 H POC Glucose 173 H 167 H Lactic Acid Calcium 6.5 L Phosphorus Magnesium Direct Bilirubin AST ALT Alkaline Phosphatase Troponin T C-Reactive Protein Total Protein Albumin Prealbumin Triglycerides Cholesterol LDL Cholesterol Direct HDL Cholesterol Urine pH Urine WBC (Auto) Urine Creatinine Urine Total Protein Vancomycin Trough Rheumatoid Factor Complement C4 Miscellaneous Test Crossmatch 09/24/16 09/24/16 09/24/16 20:15 21:02 23:48 WBC RBC Hgb Hct MCV MCH MCHC RDW Plt Count Lymph % (Auto) [place] % (Auto) Lymph # [place] # Baso # Seg Neutrophils % Seg Neuts % (Manual) Lymphocytes % (Manual) Monocytes % (Manual) Eosinophils % (Manual) Basophils % (Manual) Nucleated RBC % Seg Neutrophils # Seg Neutrophils # Man Lymphocytes # (Manual) Monocytes # (Manual) Eosinophils # (Manual) PT INR Fibrinogen dRVVT Confirm Interp Factor V Activity POC ABG pH 7.288 L POC ABG pCO2 30.2 L 21.5 L POC ABG pO2 32 L 39 L Sodium Potassium Chloride Carbon Dioxide BUN Creatinine Glucose POC Glucose 109 H Lactic Acid Calcium Phosphorus Magnesium Direct Bilirubin AST ALT Alkaline Phosphatase Troponin T C-Reactive Protein Total Protein Albumin Prealbumin Triglycerides Cholesterol LDL Cholesterol Direct HDL Cholesterol Urine pH Urine WBC (Auto) Urine Creatinine Urine Total Protein Vancomycin Trough Rheumatoid Factor Complement C4 Miscellaneous Test Crossmatch 09/25/16 09/25/16 09/25/16 04:20 04:20 04:20 WBC RBC 2.58 L Hgb 7.0 L Hct 21.0 L MCV MCH 27 L MCHC RDW 23.8 H Plt Count Lymph % (Auto) [place] % (Auto) Lymph # [place] # Baso # Seg Neutrophils % Seg Neuts % (Manual) Lymphocytes % (Manual) 12.0 L Monocytes % (Manual) Eosinophils % (Manual) 7.0 H Basophils % (Manual) 2.0 H Nucleated RBC % Seg Neutrophils # Seg Neutrophils # Man Lymphocytes # (Manual) 0.9 L Monocytes # (Manual) Eosinophils # (Manual) 0.5 H PT INR Fibrinogen dRVVT Confirm Interp Factor V Activity POC ABG pH POC ABG pCO2 POC ABG pO2 Sodium Potassium Chloride Carbon Dioxide 15 L BUN 72 H Creatinine 3.8 H Glucose POC Glucose Lactic Acid Calcium 6.0 L Phosphorus 4.60 H Magnesium 1.60 L Direct Bilirubin AST ALT Alkaline Phosphatase Troponin T C-Reactive Protein Total Protein Albumin Prealbumin Triglycerides Cholesterol LDL Cholesterol Direct HDL Cholesterol Urine pH Urine WBC (Auto) Urine Creatinine Urine Total Protein Vancomycin Trough Rheumatoid Factor Complement C4 Miscellaneous Test Crossmatch 09/25/16 09/25/16 09/25/16 04:57 08:02 10:30 WBC RBC Hgb Hct MCV MCH MCHC RDW Plt Count Lymph % (Auto) [place] % (Auto) Lymph # [place] # Baso # Seg Neutrophils % Seg Neuts % (Manual) Lymphocytes % (Manual) Monocytes % (Manual) Eosinophils % (Manual) Basophils % (Manual) Nucleated RBC % Seg Neutrophils # Seg Neutrophils # Man Lymphocytes # (Manual) Monocytes # (Manual) Eosinophils # (Manual) PT INR Fibrinogen dRVVT Confirm Interp Factor V Activity POC ABG pH POC ABG pCO2 24.7 L POC ABG pO2 152 H Sodium Potassium Chloride Carbon Dioxide BUN Creatinine Glucose POC Glucose 113 H Lactic Acid Calcium Phosphorus Magnesium Direct Bilirubin AST ALT Alkaline Phosphatase Troponin T C-Reactive Protein Total Protein Albumin Prealbumin Triglycerides Cholesterol LDL Cholesterol Direct HDL Cholesterol Urine pH Urine WBC (Auto) Urine Creatinine Urine Total Protein Vancomycin Trough Rheumatoid Factor Complement C4 Miscellaneous Test Crossmatch See Detail 09/25/16 09/25/16 09/25/16 12:05 17:44 23:47 WBC RBC Hgb Hct MCV MCH MCHC RDW Plt Count Lymph % (Auto) [place] % (Auto) Lymph # [place] # Baso # Seg Neutrophils % Seg Neuts % (Manual) Lymphocytes % (Manual) Monocytes % (Manual) Eosinophils % (Manual) Basophils % (Manual) Nucleated RBC % Seg Neutrophils # Seg Neutrophils # Man Lymphocytes # (Manual) Monocytes # (Manual) Eosinophils # (Manual) PT INR Fibrinogen dRVVT Confirm Interp Factor V Activity POC ABG pH POC ABG pCO2 POC ABG pO2 Sodium Potassium Chloride Carbon Dioxide BUN Creatinine Glucose POC Glucose 117 H 119 H 150 H Lactic Acid Calcium Phosphorus Magnesium Direct Bilirubin AST ALT Alkaline Phosphatase Troponin T C-Reactive Protein Total Protein Albumin Prealbumin Triglycerides Cholesterol LDL Cholesterol Direct HDL Cholesterol Urine pH Urine WBC (Auto) Urine Creatinine Urine Total Protein Vancomycin Trough Rheumatoid Factor Complement C4 Miscellaneous Test Crossmatch 09/26/16 09/26/16 09/26/16 04:25 04:25 04:25 WBC RBC 2.65 L Hgb 7.4 L Hct 21.6 L MCV MCH MCHC RDW 22.5 H Plt Count Lymph % (Auto) [place] % (Auto) Lymph # [place] # Baso # Seg Neutrophils % Seg Neuts % (Manual) Lymphocytes % (Manual) 6.0 L Monocytes % (Manual) Eosinophils % (Manual) 11.0 H Basophils % (Manual) Nucleated RBC % Seg Neutrophils # Seg Neutrophils # Man Lymphocytes # (Manual) 0.4 L Monocytes # (Manual) Eosinophils # (Manual) 0.6 H PT INR Fibrinogen dRVVT Confirm Interp Factor V Activity POC ABG pH POC ABG pCO2 POC ABG pO2 Sodium Potassium Chloride 97.0 L Carbon Dioxide 19 L BUN 43 H Creatinine 2.6 H Glucose 130 H POC Glucose Lactic Acid 4.40 H* Calcium 6.7 L Phosphorus Magnesium Direct Bilirubin AST ALT Alkaline Phosphatase Troponin T C-Reactive Protein Total Protein Albumin Prealbumin Triglycerides Cholesterol LDL Cholesterol Direct HDL Cholesterol Urine pH Urine WBC (Auto) Urine Creatinine Urine Total Protein Vancomycin Trough Rheumatoid Factor Complement C4 Miscellaneous Test Crossmatch 09/26/16 09/26/16 09/26/16 05:20 11:44 12:12 WBC RBC Hgb Hct MCV MCH MCHC RDW Plt Count Lymph % (Auto) [place] % (Auto) Lymph # [place] # Baso # Seg Neutrophils % Seg Neuts % (Manual) Lymphocytes % (Manual) Monocytes % (Manual) Eosinophils % (Manual) Basophils % (Manual) Nucleated RBC % Seg Neutrophils # Seg Neutrophils # Man Lymphocytes # (Manual) Monocytes # (Manual) Eosinophils # (Manual) PT INR Fibrinogen dRVVT Confirm Interp Factor V Activity POC ABG pH POC ABG pCO2 27.0 L POC ABG pO2 69 L Sodium Potassium Chloride Carbon Dioxide BUN Creatinine Glucose POC Glucose 121 H 128 H Lactic Acid Calcium Phosphorus Magnesium Direct Bilirubin AST ALT Alkaline Phosphatase Troponin T C-Reactive Protein Total Protein Albumin Prealbumin Triglycerides Cholesterol LDL Cholesterol Direct HDL Cholesterol Urine pH Urine WBC (Auto) Urine Creatinine Urine Total Protein Vancomycin Trough Rheumatoid Factor Complement C4 Miscellaneous Test Crossmatch 09/26/16 09/26/16 09/27/16 18:31 23:40 08:20 WBC RBC Hgb Hct MCV MCH MCHC RDW Plt Count Lymph % (Auto) [place] % (Auto) Lymph # [place] # Baso # Seg Neutrophils % Seg Neuts % (Manual) Lymphocytes % (Manual) Monocytes % (Manual) Eosinophils % (Manual) Basophils % (Manual) Nucleated RBC % Seg Neutrophils # Seg Neutrophils # Man Lymphocytes # (Manual) Monocytes # (Manual) Eosinophils # (Manual) PT INR Fibrinogen dRVVT Confirm Interp Factor V Activity POC ABG pH POC ABG pCO2 POC ABG pO2 Sodium Potassium Chloride Carbon Dioxide BUN Creatinine Glucose POC Glucose 120 H 133 H Lactic Acid 4.10 H* Calcium Phosphorus Magnesium Direct Bilirubin AST ALT Alkaline Phosphatase Troponin T C-Reactive Protein Total Protein Albumin Prealbumin Triglycerides Cholesterol LDL Cholesterol Direct HDL Cholesterol Urine pH Urine WBC (Auto) Urine Creatinine Urine Total Protein Vancomycin Trough Rheumatoid Factor Complement C4 Miscellaneous Test Crossmatch 09/27/16 09/27/16 09/27/16 11:23 15:00 18:15 WBC RBC Hgb Hct MCV MCH MCHC RDW Plt Count Lymph % (Auto) [place] % (Auto) Lymph # [place] # Baso # Seg Neutrophils % Seg Neuts % (Manual) Lymphocytes % (Manual) Monocytes % (Manual) Eosinophils % (Manual) Basophils % (Manual) Nucleated RBC % Seg Neutrophils # Seg Neutrophils # Man Lymphocytes # (Manual) Monocytes # (Manual) Eosinophils # (Manual) PT INR Fibrinogen dRVVT Confirm Interp Factor V Activity POC ABG pH 7.459 H POC ABG pCO2 27.1 L POC ABG pO2 140 H Sodium Potassium Chloride Carbon Dioxide BUN Creatinine Glucose POC Glucose 114 H 127 H Lactic Acid Calcium Phosphorus Magnesium Direct Bilirubin AST ALT Alkaline Phosphatase Troponin T C-Reactive Protein Total Protein Albumin Prealbumin Triglycerides Cholesterol LDL Cholesterol Direct HDL Cholesterol Urine pH Urine WBC (Auto) Urine Creatinine Urine Total Protein Vancomycin Trough Rheumatoid Factor Complement C4 Miscellaneous Test Crossmatch 09/27/16 09/27/16 09/28/16 Unknown Unknown 03:45 WBC RBC 2.49 L Hgb 6.8 L Hct 20.7 L MCV MCH 27 L MCHC RDW 22.1 H Plt Count Lymph % (Auto) [place] % (Auto) Lymph # [place] # Baso # Seg Neutrophils % Seg Neuts % (Manual) 32.0 L Lymphocytes % (Manual) 12.0 L Monocytes % (Manual) 11.0 H Eosinophils % (Manual) 10.0 H Basophils % (Manual) Nucleated RBC % Seg Neutrophils # Seg Neutrophils # Man Lymphocytes # (Manual) 1.0 L Monocytes # (Manual) 0.9 H Eosinophils # (Manual) 0.8 H PT INR Fibrinogen dRVVT Confirm Interp Factor V Activity POC ABG pH POC ABG pCO2 POC ABG pO2 Sodium 135 L 135 L Potassium 3.5 L Chloride 93.6 L 94.4 L Carbon Dioxide 17 L 21 L BUN 45 H 28 H Creatinine 3.3 H 2.5 H Glucose 106 H POC Glucose Lactic Acid Calcium 7.3 L 7.1 L Phosphorus Magnesium Direct Bilirubin AST ALT Alkaline Phosphatase Troponin T C-Reactive Protein Total Protein Albumin Prealbumin Triglycerides Cholesterol LDL Cholesterol Direct HDL Cholesterol Urine pH Urine WBC (Auto) Urine Creatinine Urine Total Protein Vancomycin Trough Rheumatoid Factor Complement C4 Miscellaneous Test Crossmatch 09/28/16 09/28/16 09/28/16 03:45 07:25 11:58 WBC 13.3 H RBC 3.01 L Hgb 8.4 L Hct 25.0 L MCV MCH MCHC RDW 20.5 H Plt Count 128 L Lymph % (Auto) [place] % (Auto) Lymph # [place] # Baso # Seg Neutrophils % Seg Neuts % (Manual) Lymphocytes % (Manual) 7.0 L Monocytes % (Manual) Eosinophils % (Manual) 6.0 H Basophils % (Manual) Nucleated RBC % Seg Neutrophils # Seg Neutrophils # Man Lymphocytes # (Manual) 0.9 L Monocytes # (Manual) Eosinophils # (Manual) 0.8 H PT INR Fibrinogen dRVVT Confirm Interp Factor V Activity POC ABG pH POC ABG pCO2 POC ABG pO2 Sodium Potassium Chloride Carbon Dioxide BUN Creatinine Glucose POC Glucose 121 H Lactic Acid 4.50 H* Calcium Phosphorus Magnesium Direct Bilirubin AST ALT Alkaline Phosphatase Troponin T C-Reactive Protein Total Protein Albumin Prealbumin Triglycerides Cholesterol LDL Cholesterol Direct HDL Cholesterol Urine pH Urine WBC (Auto) Urine Creatinine Urine Total Protein Vancomycin Trough Rheumatoid Factor Complement C4 Miscellaneous Test Crossmatch 09/29/16 09/29/16 09/29/16 06:45 06:45 06:45 WBC 14.9 H RBC 2.74 L Hgb 7.6 L Hct 23.2 L MCV MCH MCHC RDW 20.5 H Plt Count 81 L Lymph % (Auto) [place] % (Auto) Lymph # [place] # Baso # Seg Neutrophils % Seg Neuts % (Manual) 81.0 H Lymphocytes % (Manual) 4.0 L Monocytes % (Manual) Eosinophils % (Manual) Basophils % (Manual) Nucleated RBC % Seg Neutrophils # Seg Neutrophils # Man 12.1 H Lymphocytes # (Manual) 0.6 L Monocytes # (Manual) Eosinophils # (Manual) PT INR Fibrinogen dRVVT Confirm Interp Factor V Activity POC ABG pH POC ABG pCO2 POC ABG pO2 Sodium 133 L Potassium 3.4 L Chloride 92.5 L Carbon Dioxide 21 L BUN 33 H Creatinine 3.0 H Glucose POC Glucose Lactic Acid Calcium 6.6 L Phosphorus Magnesium 1.40 L Direct Bilirubin 0.9 H AST ALT Alkaline Phosphatase Troponin T C-Reactive Protein Total Protein 4.3 L Albumin 1.3 L Prealbumin Triglycerides Cholesterol LDL Cholesterol Direct HDL Cholesterol Urine pH Urine WBC (Auto) Urine Creatinine Urine Total Protein Vancomycin Trough Rheumatoid Factor Complement C4 Miscellaneous Test Crossmatch 09/29/16 09/29/16 09/30/16 17:52 20:12 00:07 WBC RBC Hgb Hct MCV MCH MCHC RDW Plt Count Lymph % (Auto) [place] % (Auto) Lymph # [place] # Baso # Seg Neutrophils % Seg Neuts % (Manual) Lymphocytes % (Manual) Monocytes % (Manual) Eosinophils % (Manual) Basophils % (Manual) Nucleated RBC % Seg Neutrophils # Seg Neutrophils # Man Lymphocytes # (Manual) Monocytes # (Manual) Eosinophils # (Manual) PT INR Fibrinogen dRVVT Confirm Interp Factor V Activity POC ABG pH POC ABG pCO2 POC ABG pO2 Sodium Potassium Chloride Carbon Dioxide BUN Creatinine Glucose POC Glucose 50 L 51 L Lactic Acid Calcium Phosphorus Magnesium Direct Bilirubin AST ALT Alkaline Phosphatase Troponin T 0.204 H* C-Reactive Protein Total Protein Albumin Prealbumin Triglycerides Cholesterol 31 L LDL Cholesterol Direct 4 L HDL Cholesterol 3 L Urine pH Urine WBC (Auto) Urine Creatinine Urine Total Protein Vancomycin Trough Rheumatoid Factor Complement C4 Miscellaneous Test Crossmatch 09/30/16 09/30/16 09/30/16 01:30 05:15 06:10 WBC RBC Hgb Hct MCV MCH MCHC RDW Plt Count Lymph % (Auto) [place] % (Auto) Lymph # [place] # Baso # Seg Neutrophils % Seg Neuts % (Manual) Lymphocytes % (Manual) Monocytes % (Manual) Eosinophils % (Manual) Basophils % (Manual) Nucleated RBC % Seg Neutrophils # Seg Neutrophils # Man Lymphocytes # (Manual) Monocytes # (Manual) Eosinophils # (Manual) PT INR Fibrinogen dRVVT Confirm Interp Factor V Activity POC ABG pH POC ABG pCO2 POC ABG pO2 Sodium 133 L Potassium 3.2 L Chloride 93.2 L Carbon Dioxide 19 L BUN 36 H Creatinine 3.2 H Glucose 104 H POC Glucose 167 H 146 H Lactic Acid Calcium 6.4 L Phosphorus Magnesium 1.60 L Direct Bilirubin AST ALT Alkaline Phosphatase Troponin T C-Reactive Protein Total Protein Albumin Prealbumin Triglycerides Cholesterol LDL Cholesterol Direct HDL Cholesterol Urine pH Urine WBC (Auto) Urine Creatinine Urine Total Protein Vancomycin Trough Rheumatoid Factor Complement C4 Miscellaneous Test Crossmatch 09/30/16 09/30/16 09/30/16 11:26 13:39 18:38 WBC RBC Hgb Hct MCV MCH MCHC RDW Plt Count Lymph % (Auto) [place] % (Auto) Lymph # [place] # Baso # Seg Neutrophils % Seg Neuts % (Manual) Lymphocytes % (Manual) Monocytes % (Manual) Eosinophils % (Manual) Basophils % (Manual) Nucleated RBC % Seg Neutrophils # Seg Neutrophils # Man Lymphocytes # (Manual) Monocytes # (Manual) Eosinophils # (Manual) PT INR Fibrinogen dRVVT Confirm Interp Factor V Activity POC ABG pH 7.479 H POC ABG pCO2 29.8 L POC ABG pO2 117 H Sodium Potassium Chloride Carbon Dioxide BUN Creatinine Glucose POC Glucose 140 H 122 H Lactic Acid Calcium Phosphorus Magnesium Direct Bilirubin AST ALT Alkaline Phosphatase Troponin T C-Reactive Protein Total Protein Albumin Prealbumin Triglycerides Cholesterol LDL Cholesterol Direct HDL Cholesterol Urine pH Urine WBC (Auto) Urine Creatinine Urine Total Protein Vancomycin Trough Rheumatoid Factor Complement C4 Miscellaneous Test Crossmatch 10/01/16 10/01/16 10/01/16 06:00 06:00 12:37 WBC 12.6 H RBC 2.75 L Hgb 7.3 L Hct 23.3 L MCV MCH 27 L MCHC RDW 20.6 H Plt Count 72 L Lymph % (Auto) [place] % (Auto) Lymph # [place] # Baso # Seg Neutrophils % Seg Neuts % (Manual) 31.0 L Lymphocytes % (Manual) 8.0 L Monocytes % (Manual) Eosinophils % (Manual) Basophils % (Manual) Nucleated RBC % 3.0 H Seg Neutrophils # Seg Neutrophils # Man Lymphocytes # (Manual) 1.0 L Monocytes # (Manual) Eosinophils # (Manual) PT INR Fibrinogen dRVVT Confirm Interp Factor V Activity POC ABG pH POC ABG pCO2 POC ABG pO2 Sodium 127 L Potassium Chloride 86.8 L Carbon Dioxide 20 L BUN 42 H Creatinine 3.5 H Glucose POC Glucose 65 L Lactic Acid Calcium 7.0 L Phosphorus Magnesium Direct Bilirubin AST ALT Alkaline Phosphatase Troponin T C-Reactive Protein Total Protein Albumin Prealbumin Triglycerides Cholesterol LDL Cholesterol Direct HDL Cholesterol Urine pH Urine WBC (Auto) Urine Creatinine Urine Total Protein Vancomycin Trough Rheumatoid Factor Complement C4 Miscellaneous Test Crossmatch 10/01/16 10/01/16 10/02/16 17:39 23:32 00:59 WBC RBC Hgb Hct MCV MCH MCHC RDW Plt Count Lymph % (Auto) [place] % (Auto) Lymph # [place] # Baso # Seg Neutrophils % Seg Neuts % (Manual) Lymphocytes % (Manual) Monocytes % (Manual) Eosinophils % (Manual) Basophils % (Manual) Nucleated RBC % Seg Neutrophils # Seg Neutrophils # Man Lymphocytes # (Manual) Monocytes # (Manual) Eosinophils # (Manual) PT INR Fibrinogen dRVVT Confirm Interp Factor V Activity POC ABG pH POC ABG pCO2 POC ABG pO2 Sodium Potassium Chloride Carbon Dioxide BUN Creatinine Glucose POC Glucose 107 H 52 L 145 H Lactic Acid Calcium Phosphorus Magnesium Direct Bilirubin AST ALT Alkaline Phosphatase Troponin T C-Reactive Protein Total Protein Albumin Prealbumin Triglycerides Cholesterol LDL Cholesterol Direct HDL Cholesterol Urine pH Urine WBC (Auto) Urine Creatinine Urine Total Protein Vancomycin Trough Rheumatoid Factor Complement C4 Miscellaneous Test Crossmatch 10/02/16 10/02/16 10/02/16 10:30 10:50 10:50 WBC 14.7 H RBC 2.76 L Hgb 7.4 L Hct 23.6 L MCV MCH 27 L MCHC RDW 20.2 H Plt Count 79 L Lymph % (Auto) [place] % (Auto) Lymph # [place] # Baso # Seg Neutrophils % Seg Neuts % (Manual) 86.0 H Lymphocytes % (Manual) 6.0 L Monocytes % (Manual) Eosinophils % (Manual) Basophils % (Manual) Nucleated RBC % Seg Neutrophils # Seg Neutrophils # Man 12.6 H Lymphocytes # (Manual) 0.9 L Monocytes # (Manual) Eosinophils # (Manual) PT INR Fibrinogen dRVVT Confirm Interp Factor V Activity POC ABG pH 7.486 H POC ABG pCO2 30.1 L POC ABG pO2 108 H Sodium 131 L Potassium 3.4 L Chloride 89.9 L Carbon Dioxide BUN 26 H Creatinine 2.6 H Glucose POC Glucose Lactic Acid Calcium 7.0 L Phosphorus Magnesium Direct Bilirubin AST ALT Alkaline Phosphatase Troponin T C-Reactive Protein Total Protein Albumin Prealbumin Triglycerides Cholesterol LDL Cholesterol Direct HDL Cholesterol Urine pH Urine WBC (Auto) Urine Creatinine Urine Total Protein Vancomycin Trough Rheumatoid Factor Complement C4 Miscellaneous Test Crossmatch 10/02/16 10/03/16 10/03/16 23:45 00:45 05:10 WBC 12.9 H RBC 2.77 L Hgb 7.6 L Hct 23.7 L MCV MCH 27 L MCHC RDW 19.7 H Plt Count 89 L Lymph % (Auto) [place] % (Auto) Lymph # [place] # Baso # Seg Neutrophils % Seg Neuts % (Manual) Lymphocytes % (Manual) 8.0 L Monocytes % (Manual) Eosinophils % (Manual) Basophils % (Manual) Nucleated RBC % Seg Neutrophils # 11.9 H Seg Neutrophils # Man Lymphocytes # (Manual) 1.0 L Monocytes # (Manual) Eosinophils # (Manual) PT INR Fibrinogen dRVVT Confirm Interp Factor V Activity POC ABG pH POC ABG pCO2 POC ABG pO2 Sodium Potassium Chloride Carbon Dioxide BUN Creatinine Glucose POC Glucose 55 L 199 H Lactic Acid Calcium Phosphorus Magnesium Direct Bilirubin AST ALT Alkaline Phosphatase Troponin T C-Reactive Protein Total Protein Albumin Prealbumin Triglycerides Cholesterol LDL Cholesterol Direct HDL Cholesterol Urine pH Urine WBC (Auto) Urine Creatinine Urine Total Protein Vancomycin Trough Rheumatoid Factor Complement C4 Miscellaneous Test Crossmatch 10/03/16 10/03/16 10/03/16 05:10 12:14 13:18 WBC RBC Hgb Hct MCV MCH MCHC RDW Plt Count Lymph % (Auto) [place] % (Auto) Lymph # [place] # Baso # Seg Neutrophils % Seg Neuts % (Manual) Lymphocytes % (Manual) Monocytes % (Manual) Eosinophils % (Manual) Basophils % (Manual) Nucleated RBC % Seg Neutrophils # Seg Neutrophils # Man Lymphocytes # (Manual) Monocytes # (Manual) Eosinophils # (Manual) PT INR Fibrinogen dRVVT Confirm Interp Factor V Activity POC ABG pH POC ABG pCO2 POC ABG pO2 Sodium 129 L Potassium 3.3 L Chloride 88.8 L Carbon Dioxide 20 L BUN 29 H Creatinine 2.8 H Glucose POC Glucose 68 L 127 H Lactic Acid Calcium 7.2 L Phosphorus Magnesium Direct Bilirubin AST ALT Alkaline Phosphatase Troponin T C-Reactive Protein Total Protein Albumin Prealbumin Triglycerides Cholesterol LDL Cholesterol Direct HDL Cholesterol Urine pH Urine WBC (Auto) Urine Creatinine Urine Total Protein Vancomycin Trough Rheumatoid Factor Complement C4 Miscellaneous Test Crossmatch 10/03/16 10/03/16 10/03/16 14:42 18:21 19:09 WBC RBC Hgb Hct MCV MCH MCHC RDW Plt Count Lymph % (Auto) [place] % (Auto) Lymph # [place] # Baso # Seg Neutrophils % Seg Neuts % (Manual) Lymphocytes % (Manual) Monocytes % (Manual) Eosinophils % (Manual) Basophils % (Manual) Nucleated RBC % Seg Neutrophils # Seg Neutrophils # Man Lymphocytes # (Manual) Monocytes # (Manual) Eosinophils # (Manual) PT INR Fibrinogen dRVVT Confirm Interp Factor V Activity POC ABG pH 7.499 H POC ABG pCO2 28.4 L POC ABG pO2 44 L Sodium Potassium Chloride Carbon Dioxide BUN Creatinine Glucose POC Glucose 64 L 205 H Lactic Acid Calcium Phosphorus Magnesium Direct Bilirubin AST ALT Alkaline Phosphatase Troponin T C-Reactive Protein Total Protein Albumin Prealbumin Triglycerides Cholesterol LDL Cholesterol Direct HDL Cholesterol Urine pH Urine WBC (Auto) Urine Creatinine Urine Total Protein Vancomycin Trough Rheumatoid Factor Complement C4 Miscellaneous Test Crossmatch 10/03/16 10/04/16 10/04/16 23:33 04:18 06:30 WBC RBC 2.54 L Hgb 7.1 L Hct 21.7 L MCV MCH MCHC RDW 19.5 H Plt Count 76 L Lymph % (Auto) [place] % (Auto) Lymph # [place] # Baso # Seg Neutrophils % Seg Neuts % (Manual) 88.0 H Lymphocytes % (Manual) 6.0 L Monocytes % (Manual) Eosinophils % (Manual) Basophils % (Manual) Nucleated RBC % Seg Neutrophils # Seg Neutrophils # Man 8.8 H Lymphocytes # (Manual) 0.6 L Monocytes # (Manual) Eosinophils # (Manual) PT INR Fibrinogen dRVVT Confirm Interp Factor V Activity POC ABG pH 7.461 H POC ABG pCO2 33.6 L POC ABG pO2 211 H Sodium Potassium Chloride Carbon Dioxide BUN Creatinine Glucose POC Glucose 136 H Lactic Acid Calcium Phosphorus Magnesium Direct Bilirubin AST ALT Alkaline Phosphatase Troponin T C-Reactive Protein Total Protein Albumin Prealbumin Triglycerides Cholesterol LDL Cholesterol Direct HDL Cholesterol Urine pH Urine WBC (Auto) Urine Creatinine Urine Total Protein Vancomycin Trough Rheumatoid Factor Complement C4 Miscellaneous Test Crossmatch 10/04/16 10/04/16 10/04/16 06:30 11:45 17:54 WBC RBC Hgb Hct MCV MCH MCHC RDW Plt Count Lymph % (Auto) [place] % (Auto) Lymph # [place] # Baso # Seg Neutrophils % Seg Neuts % (Manual) Lymphocytes % (Manual) Monocytes % (Manual) Eosinophils % (Manual) Basophils % (Manual) Nucleated RBC % Seg Neutrophils # Seg Neutrophils # Man Lymphocytes # (Manual) Monocytes # (Manual) Eosinophils # (Manual) PT INR Fibrinogen dRVVT Confirm Interp Factor V Activity POC ABG pH POC ABG pCO2 POC ABG pO2 Sodium 128 L Potassium Chloride 87.4 L Carbon Dioxide 20 L BUN 34 H Creatinine 2.9 H Glucose 127 H POC Glucose 158 H 160 H Lactic Acid Calcium 7.4 L Phosphorus Magnesium Direct Bilirubin AST ALT Alkaline Phosphatase Troponin T C-Reactive Protein Total Protein Albumin Prealbumin Triglycerides Cholesterol LDL Cholesterol Direct HDL Cholesterol Urine pH Urine WBC (Auto) Urine Creatinine Urine Total Protein Vancomycin Trough Rheumatoid Factor Complement C4 Miscellaneous Test Crossmatch 10/04/16 10/05/16 10/05/16 23:25 04:30 05:00 WBC RBC 2.64 L Hgb 7.5 L Hct 22.6 L MCV MCH MCHC RDW 19.3 H Plt Count 80 L Lymph % (Auto) [place] % (Auto) Lymph # [place] # Baso # Seg Neutrophils % Seg Neuts % (Manual) Lymphocytes % (Manual) 12.0 L Monocytes % (Manual) Eosinophils % (Manual) Basophils % (Manual) Nucleated RBC % Seg Neutrophils # Seg Neutrophils # Man Lymphocytes # (Manual) Monocytes # (Manual) Eosinophils # (Manual) PT INR Fibrinogen dRVVT Confirm Interp Factor V Activity POC ABG pH 7.475 H POC ABG pCO2 33.3 L POC ABG pO2 140 H Sodium Potassium Chloride Carbon Dioxide BUN Creatinine Glucose POC Glucose 141 H Lactic Acid Calcium Phosphorus Magnesium Direct Bilirubin AST ALT Alkaline Phosphatase Troponin T C-Reactive Protein Total Protein Albumin Prealbumin Triglycerides Cholesterol LDL Cholesterol Direct HDL Cholesterol Urine pH Urine WBC (Auto) Urine Creatinine Urine Total Protein Vancomycin Trough Rheumatoid Factor Complement C4 Miscellaneous Test Crossmatch 10/05/16 10/05/16 10/05/16 05:00 05:09 12:58 WBC RBC Hgb Hct MCV MCH MCHC RDW Plt Count Lymph % (Auto) [place] % (Auto) Lymph # [place] # Baso # Seg Neutrophils % Seg Neuts % (Manual) Lymphocytes % (Manual) Monocytes % (Manual) Eosinophils % (Manual) Basophils % (Manual) Nucleated RBC % Seg Neutrophils # Seg Neutrophils # Man Lymphocytes # (Manual) Monocytes # (Manual) Eosinophils # (Manual) PT INR Fibrinogen dRVVT Confirm Interp Factor V Activity POC ABG pH POC ABG pCO2 POC ABG pO2 Sodium 131 L Potassium Chloride 94.0 L Carbon Dioxide 20 L BUN 22 H Creatinine 2.0 H Glucose 123 H POC Glucose 166 H 179 H Lactic Acid Calcium 7.7 L Phosphorus 2.20 L D Magnesium Direct Bilirubin AST ALT Alkaline Phosphatase Troponin T C-Reactive Protein Total Protein Albumin Prealbumin Triglycerides Cholesterol LDL Cholesterol Direct HDL Cholesterol Urine pH Urine WBC (Auto) Urine Creatinine Urine Total Protein Vancomycin Trough Rheumatoid Factor Complement C4 Miscellaneous Test Crossmatch 10/05/16 10/05/16 10/05/16 15:50 18:53 23:12 WBC RBC Hgb Hct MCV MCH MCHC RDW Plt Count Lymph % (Auto) [place] % (Auto) Lymph # [place] # Baso # Seg Neutrophils % Seg Neuts % (Manual) Lymphocytes % (Manual) Monocytes % (Manual) Eosinophils % (Manual) Basophils % (Manual) Nucleated RBC % Seg Neutrophils # Seg Neutrophils # Man Lymphocytes # (Manual) Monocytes # (Manual) Eosinophils # (Manual) PT INR Fibrinogen dRVVT Confirm Interp Factor V Activity POC ABG pH POC ABG pCO2 POC ABG pO2 Sodium Potassium Chloride Carbon Dioxide BUN Creatinine Glucose POC Glucose 150 H 164 H Lactic Acid Calcium Phosphorus Magnesium Direct Bilirubin AST ALT Alkaline Phosphatase Troponin T C-Reactive Protein Total Protein Albumin Prealbumin Triglycerides Cholesterol LDL Cholesterol Direct HDL Cholesterol Urine pH Urine WBC (Auto) Urine Creatinine Urine Total Protein Vancomycin Trough Rheumatoid Factor Complement C4 Miscellaneous Test Crossmatch See Detail 10/06/16 10/06/16 10/06/16 03:50 03:50 04:53 WBC RBC 3.00 L Hgb 8.6 L Hct 25.8 L MCV MCH MCHC RDW 17.9 H Plt Count 65 L Lymph % (Auto) [place] % (Auto) Lymph # [place] # Baso # Seg Neutrophils % Seg Neuts % (Manual) 30.0 L Lymphocytes % (Manual) 5.0 L Monocytes % (Manual) Eosinophils % (Manual) Basophils % (Manual) Nucleated RBC % Seg Neutrophils # Seg Neutrophils # Man Lymphocytes # (Manual) 0.4 L Monocytes # (Manual) Eosinophils # (Manual) PT INR Fibrinogen dRVVT Confirm Interp Factor V Activity POC ABG pH 7.310 L POC ABG pCO2 49.0 H POC ABG pO2 Sodium 133 L Potassium Chloride 95.9 L Carbon Dioxide BUN 26 H Creatinine 2.0 H Glucose 116 H POC Glucose Lactic Acid Calcium 7.8 L Phosphorus Magnesium Direct Bilirubin AST ALT Alkaline Phosphatase Troponin T C-Reactive Protein Total Protein Albumin Prealbumin Triglycerides Cholesterol LDL Cholesterol Direct HDL Cholesterol Urine pH Urine WBC (Auto) Urine Creatinine Urine Total Protein Vancomycin Trough Rheumatoid Factor Complement C4 Miscellaneous Test Crossmatch 10/06/16 10/06/16 10/06/16 05:23 11:52 18:34 WBC RBC Hgb Hct MCV MCH MCHC RDW Plt Count Lymph % (Auto) [place] % (Auto) Lymph # [place] # Baso # Seg Neutrophils % Seg Neuts % (Manual) Lymphocytes % (Manual) Monocytes % (Manual) Eosinophils % (Manual) Basophils % (Manual) Nucleated RBC % Seg Neutrophils # Seg Neutrophils # Man Lymphocytes # (Manual) Monocytes # (Manual) Eosinophils # (Manual) PT INR Fibrinogen dRVVT Confirm Interp Factor V Activity POC ABG pH POC ABG pCO2 POC ABG pO2 Sodium Potassium Chloride Carbon Dioxide BUN Creatinine Glucose POC Glucose 126 H 116 H 129 H Lactic Acid Calcium Phosphorus Magnesium Direct Bilirubin AST ALT Alkaline Phosphatase Troponin T C-Reactive Protein Total Protein Albumin Prealbumin Triglycerides Cholesterol LDL Cholesterol Direct HDL Cholesterol Urine pH Urine WBC (Auto) Urine Creatinine Urine Total Protein Vancomycin Trough Rheumatoid Factor Complement C4 Miscellaneous Test Crossmatch 10/07/16 10/07/16 10/07/16 03:45 05:00 10:00 WBC 17.0 H RBC 2.68 L Hgb 7.3 L Hct 25.3 L MCV MCH 27 L MCHC 29 L RDW 19.6 H Plt Count 74 L Lymph % (Auto) [place] % (Auto) Lymph # [place] # Baso # Seg Neutrophils % Seg Neuts % (Manual) Lymphocytes % (Manual) 12.0 L Monocytes % (Manual) Eosinophils % (Manual) Basophils % (Manual) Nucleated RBC % 4.0 H Seg Neutrophils # Seg Neutrophils # Man 10.7 H Lymphocytes # (Manual) Monocytes # (Manual) Eosinophils # (Manual) PT INR Fibrinogen dRVVT Confirm Interp Factor V Activity POC ABG pH POC ABG pCO2 POC ABG pO2 Sodium 130 L Potassium 3.2 L Chloride 93.9 L Carbon Dioxide 20 L BUN 44 H Creatinine 2.7 H Glucose 129 H POC Glucose Lactic Acid Calcium 7.4 L Phosphorus Magnesium Direct Bilirubin AST ALT 6 L Alkaline Phosphatase 195 H Troponin T C-Reactive Protein Total Protein 4.9 L Albumin 1.0 L Prealbumin Triglycerides Cholesterol LDL Cholesterol Direct HDL Cholesterol Urine pH Urine WBC (Auto) Urine Creatinine Urine Total Protein Vancomycin Trough Rheumatoid Factor Complement C4 Miscellaneous Test Flexitest 1 H Crossmatch 10/07/16 10/07/16 10/07/16 10:00 11:24 18:10 WBC RBC Hgb Hct MCV MCH MCHC RDW Plt Count Lymph % (Auto) [place] % (Auto) Lymph # [place] # Baso # Seg Neutrophils % Seg Neuts % (Manual) Lymphocytes % (Manual) Monocytes % (Manual) Eosinophils % (Manual) Basophils % (Manual) Nucleated RBC % Seg Neutrophils # Seg Neutrophils # Man Lymphocytes # (Manual) Monocytes # (Manual) Eosinophils # (Manual) PT INR Fibrinogen dRVVT Confirm Interp Factor V Activity POC ABG pH POC ABG pCO2 POC ABG pO2 Sodium Potassium Chloride Carbon Dioxide BUN Creatinine Glucose POC Glucose 116 H 130 H Lactic Acid Calcium Phosphorus Magnesium Direct Bilirubin AST ALT Alkaline Phosphatase Troponin T C-Reactive Protein 19.40 H Total Protein Albumin Prealbumin Triglycerides Cholesterol LDL Cholesterol Direct HDL Cholesterol Urine pH Urine WBC (Auto) Urine Creatinine Urine Total Protein Vancomycin Trough Rheumatoid Factor Complement C4 Miscellaneous Test Crossmatch 10/07/16 10/08/16 10/08/16 18:30 00:00 04:00 WBC RBC Hgb Hct MCV MCH MCHC RDW Plt Count Lymph % (Auto) [place] % (Auto) Lymph # [place] # Baso # Seg Neutrophils % Seg Neuts % (Manual) Lymphocytes % (Manual) Monocytes % (Manual) Eosinophils % (Manual) Basophils % (Manual) Nucleated RBC % Seg Neutrophils # Seg Neutrophils # Man Lymphocytes # (Manual) Monocytes # (Manual) Eosinophils # (Manual) PT INR Fibrinogen dRVVT Confirm Interp Factor V Activity POC ABG pH POC ABG pCO2 POC ABG pO2 Sodium 132 L Potassium 3.3 L Chloride 93.6 L Carbon Dioxide 17 L BUN 59 H Creatinine 2.7 H Glucose 121 H POC Glucose 122 H Lactic Acid Calcium 7.6 L Phosphorus Magnesium Direct Bilirubin AST ALT Alkaline Phosphatase Troponin T C-Reactive Protein Total Protein Albumin Prealbumin Triglycerides Cholesterol LDL Cholesterol Direct HDL Cholesterol Urine pH Urine WBC (Auto) > 182.0 H Urine Creatinine Urine Total Protein Vancomycin Trough Rheumatoid Factor Complement C4 Miscellaneous Test Crossmatch 10/08/16 10/08/16 10/08/16 04:30 05:30 11:51 WBC RBC 5.15 H Hgb 14.4 H D Hct 44.5 H D MCV MCH MCHC RDW 19.5 H Plt Count 56 L Lymph % (Auto) [place] % (Auto) Lymph # [place] # Baso # Seg Neutrophils % Seg Neuts % (Manual) 24.0 L Lymphocytes % (Manual) 8.0 L Monocytes % (Manual) Eosinophils % (Manual) Basophils % (Manual) Nucleated RBC % 9.0 H Seg Neutrophils # Seg Neutrophils # Man Lymphocytes # (Manual) 0.7 L Monocytes # (Manual) Eosinophils # (Manual) PT INR Fibrinogen dRVVT Confirm Interp Factor V Activity POC ABG pH POC ABG pCO2 POC ABG pO2 Sodium Potassium Chloride Carbon Dioxide BUN Creatinine Glucose POC Glucose 125 H 150 H Lactic Acid Calcium Phosphorus Magnesium Direct Bilirubin AST ALT Alkaline Phosphatase Troponin T C-Reactive Protein Total Protein Albumin Prealbumin Triglycerides Cholesterol LDL Cholesterol Direct HDL Cholesterol Urine pH Urine WBC (Auto) Urine Creatinine Urine Total Protein Vancomycin Trough Rheumatoid Factor Complement C4 Miscellaneous Test Crossmatch 10/08/16 10/08/16 10/08/16 12:49 17:07 19:30 WBC RBC Hgb 7.1 L D Hct 22.4 L D MCV MCH MCHC RDW Plt Count Lymph % (Auto) [place] % (Auto) Lymph # [place] # Baso # Seg Neutrophils % Seg Neuts % (Manual) Lymphocytes % (Manual) Monocytes % (Manual) Eosinophils % (Manual) Basophils % (Manual) Nucleated RBC % Seg Neutrophils # Seg Neutrophils # Man Lymphocytes # (Manual) Monocytes # (Manual) Eosinophils # (Manual) PT INR Fibrinogen dRVVT Confirm Interp Factor V Activity POC ABG pH POC ABG pCO2 28.2 L POC ABG pO2 111 H Sodium Potassium Chloride Carbon Dioxide BUN Creatinine Glucose POC Glucose 145 H Lactic Acid Calcium Phosphorus Magnesium Direct Bilirubin AST ALT Alkaline Phosphatase Troponin T C-Reactive Protein Total Protein Albumin Prealbumin Triglycerides Cholesterol LDL Cholesterol Direct HDL Cholesterol Urine pH Urine WBC (Auto) Urine Creatinine Urine Total Protein Vancomycin Trough Rheumatoid Factor Complement C4 Miscellaneous Test Crossmatch 10/08/16 10/09/16 10/09/16 19:30 03:45 03:45 WBC 12.6 H RBC 2.36 L Hgb 6.7 L Hct 21.1 L MCV MCH MCHC RDW 19.5 H Plt Count 75 L Lymph % (Auto) [place] % (Auto) Lymph # [place] # Baso # Seg Neutrophils % Seg Neuts % (Manual) Lymphocytes % (Manual) Monocytes % (Manual) 10.0 H Eosinophils % (Manual) Basophils % (Manual) Nucleated RBC % 3.0 H Seg Neutrophils # Seg Neutrophils # Man Lymphocytes # (Manual) Monocytes # (Manual) 1.3 H Eosinophils # (Manual) PT 18.0 H INR 1.41 H Fibrinogen dRVVT Confirm Interp Factor V Activity POC ABG pH POC ABG pCO2 POC ABG pO2 Sodium 135 L Potassium Chloride Carbon Dioxide 17 L BUN 81 H Creatinine 3.2 H Glucose 109 H POC Glucose Lactic Acid Calcium 7.4 L Phosphorus 4.60 H D Magnesium Direct Bilirubin AST ALT Alkaline Phosphatase Troponin T C-Reactive Protein Total Protein Albumin Prealbumin Triglycerides Cholesterol LDL Cholesterol Direct HDL Cholesterol Urine pH Urine WBC (Auto) Urine Creatinine Urine Total Protein Vancomycin Trough Rheumatoid Factor Complement C4 Miscellaneous Test Crossmatch 10/09/16 10/09/16 10/09/16 03:45 05:14 07:20 WBC RBC Hgb Hct MCV MCH MCHC RDW Plt Count Lymph % (Auto) [place] % (Auto) Lymph # [place] # Baso # Seg Neutrophils % Seg Neuts % (Manual) Lymphocytes % (Manual) Monocytes % (Manual) Eosinophils % (Manual) Basophils % (Manual) Nucleated RBC % Seg Neutrophils # Seg Neutrophils # Man Lymphocytes # (Manual) Monocytes # (Manual) Eosinophils # (Manual) PT 19.0 H INR 1.51 H Fibrinogen dRVVT Confirm Interp Factor V Activity POC ABG pH POC ABG pCO2 POC ABG pO2 Sodium Potassium Chloride Carbon Dioxide BUN Creatinine Glucose POC Glucose 151 H Lactic Acid Calcium Phosphorus Magnesium Direct Bilirubin AST ALT Alkaline Phosphatase Troponin T C-Reactive Protein Total Protein Albumin Prealbumin Triglycerides Cholesterol LDL Cholesterol Direct HDL Cholesterol Urine pH Urine WBC (Auto) Urine Creatinine Urine Total Protein Vancomycin Trough Rheumatoid Factor Complement C4 Miscellaneous Test Crossmatch See Detail 10/09/16 10/09/16 10/09/16 11:46 16:20 16:43 WBC RBC Hgb 7.2 L Hct 22.2 L MCV MCH MCHC RDW Plt Count Lymph % (Auto) [place] % (Auto) Lymph # [place] # Baso # Seg Neutrophils % Seg Neuts % (Manual) Lymphocytes % (Manual) Monocytes % (Manual) Eosinophils % (Manual) Basophils % (Manual) Nucleated RBC % Seg Neutrophils # Seg Neutrophils # Man Lymphocytes # (Manual) Monocytes # (Manual) Eosinophils # (Manual) PT INR Fibrinogen dRVVT Confirm Interp Factor V Activity POC ABG pH POC ABG pCO2 POC ABG pO2 Sodium Potassium Chloride Carbon Dioxide BUN Creatinine Glucose POC Glucose 133 H 141 H Lactic Acid Calcium Phosphorus Magnesium Direct Bilirubin AST ALT Alkaline Phosphatase Troponin T C-Reactive Protein Total Protein Albumin Prealbumin Triglycerides Cholesterol LDL Cholesterol Direct HDL Cholesterol Urine pH Urine WBC (Auto) Urine Creatinine Urine Total Protein Vancomycin Trough Rheumatoid Factor Complement C4 Miscellaneous Test Crossmatch 10/10/16 10/10/16 10/10/16 05:00 05:00 11:19 WBC 18.5 H RBC 2.19 L Hgb 6.4 L Hct 19.6 L* MCV MCH MCHC RDW 19.3 H Plt Count 93 L Lymph % (Auto) [place] % (Auto) Lymph # [place] # Baso # Seg Neutrophils % Seg Neuts % (Manual) Lymphocytes % (Manual) 10.0 L Monocytes % (Manual) Eosinophils % (Manual) Basophils % (Manual) Nucleated RBC % 4.0 H Seg Neutrophils # Seg Neutrophils # Man 11.3 H Lymphocytes # (Manual) Monocytes # (Manual) Eosinophils # (Manual) PT INR Fibrinogen dRVVT Confirm Interp Factor V Activity POC ABG pH POC ABG pCO2 POC ABG pO2 Sodium Potassium 5.7 H D Chloride Carbon Dioxide 16 L BUN 94 H Creatinine 3.1 H Glucose 131 H POC Glucose 153 H Lactic Acid Calcium 8.2 L Phosphorus 5.10 H Magnesium 2.40 H Direct Bilirubin 0.3 H AST ALT < 5 L Alkaline Phosphatase 319 H Troponin T C-Reactive Protein Total Protein 5.1 L Albumin 1.0 L Prealbumin Triglycerides Cholesterol LDL Cholesterol Direct HDL Cholesterol Urine pH Urine WBC (Auto) Urine Creatinine Urine Total Protein Vancomycin Trough Rheumatoid Factor Complement C4 Miscellaneous Test Crossmatch 10/10/16 10/10/16 10/11/16 17:50 23:30 04:15 WBC RBC Hgb Hct MCV MCH MCHC RDW Plt Count Lymph % (Auto) [place] % (Auto) Lymph # [place] # Baso # Seg Neutrophils % Seg Neuts % (Manual) Lymphocytes % (Manual) Monocytes % (Manual) Eosinophils % (Manual) Basophils % (Manual) Nucleated RBC % Seg Neutrophils # Seg Neutrophils # Man Lymphocytes # (Manual) Monocytes # (Manual) Eosinophils # (Manual) PT INR Fibrinogen dRVVT Confirm Interp Factor V Activity POC ABG pH POC ABG pCO2 POC ABG pO2 Sodium Potassium Chloride 96.4 L Carbon Dioxide 21 L BUN 57 H Creatinine 2.1 H Glucose 151 H POC Glucose 146 H 141 H Lactic Acid Calcium 8.3 L Phosphorus Magnesium Direct Bilirubin AST ALT Alkaline Phosphatase Troponin T C-Reactive Protein Total Protein Albumin Prealbumin Triglycerides Cholesterol LDL Cholesterol Direct HDL Cholesterol Urine pH Urine WBC (Auto) Urine Creatinine Urine Total Protein Vancomycin Trough Rheumatoid Factor Complement C4 Miscellaneous Test Crossmatch 10/11/16 10/11/16 10/11/16 04:15 04:15 05:30 WBC 28.3 H RBC 3.12 L Hgb 9.3 L Hct 28.7 L D MCV MCH MCHC RDW 17.7 H Plt Count 128 L Lymph % (Auto) [place] % (Auto) Lymph # [place] # Baso # Seg Neutrophils % Seg Neuts % (Manual) Lymphocytes % (Manual) Monocytes % (Manual) Eosinophils % (Manual) Basophils % (Manual) Nucleated RBC % Seg Neutrophils # Seg Neutrophils # Man Lymphocytes # (Manual) Monocytes # (Manual) Eosinophils # (Manual) PT INR Fibrinogen dRVVT Confirm Interp Factor V Activity POC ABG pH POC ABG pCO2 POC ABG pO2 Sodium Potassium Chloride Carbon Dioxide BUN Creatinine Glucose POC Glucose 167 H Lactic Acid Calcium Phosphorus Magnesium Direct Bilirubin AST ALT Alkaline Phosphatase Troponin T C-Reactive Protein 15.80 H Total Protein Albumin Prealbumin Triglycerides Cholesterol LDL Cholesterol Direct HDL Cholesterol Urine pH Urine WBC (Auto) Urine Creatinine Urine Total Protein Vancomycin Trough Rheumatoid Factor Complement C4 Miscellaneous Test Crossmatch 10/11/16 10/11/16 10/11/16 11:40 15:49 23:57 WBC RBC Hgb Hct MCV MCH MCHC RDW Plt Count Lymph % (Auto) [place] % (Auto) Lymph # [place] # Baso # Seg Neutrophils % Seg Neuts % (Manual) Lymphocytes % (Manual) Monocytes % (Manual) Eosinophils % (Manual) Basophils % (Manual) Nucleated RBC % Seg Neutrophils # Seg Neutrophils # Man Lymphocytes # (Manual) Monocytes # (Manual) Eosinophils # (Manual) PT INR Fibrinogen dRVVT Confirm Interp Factor V Activity POC ABG pH POC ABG pCO2 POC ABG pO2 Sodium Potassium Chloride Carbon Dioxide BUN Creatinine Glucose POC Glucose 139 H 168 H 161 H Lactic Acid Calcium Phosphorus Magnesium Direct Bilirubin AST ALT Alkaline Phosphatase Troponin T C-Reactive Protein Total Protein Albumin Prealbumin Triglycerides Cholesterol LDL Cholesterol Direct HDL Cholesterol Urine pH Urine WBC (Auto) Urine Creatinine Urine Total Protein Vancomycin Trough Rheumatoid Factor Complement C4 Miscellaneous Test Crossmatch 10/12/16 10/12/16 10/12/16 04:40 04:40 05:44 WBC 22.5 H RBC 2.88 L Hgb 8.8 L Hct 26.8 L MCV MCH MCHC RDW 17.8 H Plt Count Lymph % (Auto) [place] % (Auto) Lymph # [place] # Baso # Seg Neutrophils % Seg Neuts % (Manual) Lymphocytes % (Manual) Monocytes % (Manual) Eosinophils % (Manual) Basophils % (Manual) Nucleated RBC % Seg Neutrophils # Seg Neutrophils # Man Lymphocytes # (Manual) Monocytes # (Manual) Eosinophils # (Manual) PT INR Fibrinogen dRVVT Confirm Interp Factor V Activity POC ABG pH POC ABG pCO2 POC ABG pO2 Sodium 134 L Potassium Chloride 93.0 L Carbon Dioxide BUN 74 H Creatinine 2.5 H Glucose 137 H POC Glucose 158 H Lactic Acid Calcium 8.2 L Phosphorus Magnesium Direct Bilirubin AST ALT Alkaline Phosphatase Troponin T C-Reactive Protein Total Protein Albumin Prealbumin Triglycerides Cholesterol LDL Cholesterol Direct HDL Cholesterol Urine pH Urine WBC (Auto) Urine Creatinine Urine Total Protein Vancomycin Trough Rheumatoid Factor Complement C4 Miscellaneous Test Crossmatch 10/12/16 10/12/16 10/12/16 12:27 18:18 23:46 WBC RBC Hgb Hct MCV MCH MCHC RDW Plt Count Lymph % (Auto) [place] % (Auto) Lymph # [place] # Baso # Seg Neutrophils % Seg Neuts % (Manual) Lymphocytes % (Manual) Monocytes % (Manual) Eosinophils % (Manual) Basophils % (Manual) Nucleated RBC % Seg Neutrophils # Seg Neutrophils # Man Lymphocytes # (Manual) Monocytes # (Manual) Eosinophils # (Manual) PT INR Fibrinogen dRVVT Confirm Interp Factor V Activity POC ABG pH POC ABG pCO2 POC ABG pO2 Sodium Potassium Chloride Carbon Dioxide BUN Creatinine Glucose POC Glucose 153 H 140 H 150 H Lactic Acid Calcium Phosphorus Magnesium Direct Bilirubin AST ALT Alkaline Phosphatase Troponin T C-Reactive Protein Total Protein Albumin Prealbumin Triglycerides Cholesterol LDL Cholesterol Direct HDL Cholesterol Urine pH Urine WBC (Auto) Urine Creatinine Urine Total Protein Vancomycin Trough Rheumatoid Factor Complement C4 Miscellaneous Test Crossmatch 10/13/16 10/13/16 10/13/16 06:22 09:20 12:29 WBC RBC Hgb Hct MCV MCH MCHC RDW Plt Count Lymph % (Auto) [place] % (Auto) Lymph # [place] # Baso # Seg Neutrophils % Seg Neuts % (Manual) Lymphocytes % (Manual) Monocytes % (Manual) Eosinophils % (Manual) Basophils % (Manual) Nucleated RBC % Seg Neutrophils # Seg Neutrophils # Man Lymphocytes # (Manual) Monocytes # (Manual) Eosinophils # (Manual) PT INR Fibrinogen dRVVT Confirm Interp Factor V Activity POC ABG pH POC ABG pCO2 POC ABG pO2 Sodium Potassium Chloride Carbon Dioxide BUN Creatinine Glucose POC Glucose 165 H 193 H Lactic Acid Calcium Phosphorus Magnesium Direct Bilirubin AST ALT Alkaline Phosphatase Troponin T C-Reactive Protein Total Protein Albumin Prealbumin Triglycerides Cholesterol LDL Cholesterol Direct HDL Cholesterol Urine pH Urine WBC (Auto) Urine Creatinine Urine Total Protein Vancomycin Trough Rheumatoid Factor Complement C4 Miscellaneous Test Flexitest 1 H Crossmatch 10/13/16 10/13/16 10/13/16 18:09 Unknown Unknown WBC 23.4 H RBC 2.83 L Hgb 8.7 L Hct 26.1 L MCV MCH MCHC RDW 18.1 H Plt Count Lymph % (Auto) [place] % (Auto) Lymph # [place] # Baso # Seg Neutrophils % Seg Neuts % (Manual) Lymphocytes % (Manual) Monocytes % (Manual) Eosinophils % (Manual) Basophils % (Manual) Nucleated RBC % Seg Neutrophils # Seg Neutrophils # Man Lymphocytes # (Manual) Monocytes # (Manual) Eosinophils # (Manual) PT INR Fibrinogen dRVVT Confirm Interp Factor V Activity POC ABG pH POC ABG pCO2 POC ABG pO2 Sodium Potassium Chloride 95.8 L Carbon Dioxide BUN 82 H Creatinine 2.6 H Glucose 152 H POC Glucose 166 H Lactic Acid Calcium Phosphorus Magnesium Direct Bilirubin AST ALT Alkaline Phosphatase Troponin T C-Reactive Protein Total Protein Albumin Prealbumin Triglycerides Cholesterol LDL Cholesterol Direct HDL Cholesterol Urine pH Urine WBC (Auto) Urine Creatinine Urine Total Protein Vancomycin Trough Rheumatoid Factor Complement C4 Miscellaneous Test Crossmatch 10/14/16 10/14/16 10/14/16 05:38 06:35 08:10 WBC 20.7 H RBC 2.81 L Hgb 8.4 L Hct 27.2 L MCV MCH MCHC RDW 19.4 H Plt Count Lymph % (Auto) [place] % (Auto) Lymph # [place] # Baso # Seg Neutrophils % Seg Neuts % (Manual) Lymphocytes % (Manual) Monocytes % (Manual) Eosinophils % (Manual) Basophils % (Manual) Nucleated RBC % Seg Neutrophils # Seg Neutrophils # Man Lymphocytes # (Manual) Monocytes # (Manual) Eosinophils # (Manual) PT INR Fibrinogen dRVVT Confirm Interp Factor V Activity POC ABG pH POC ABG pCO2 POC ABG pO2 Sodium Potassium Chloride Carbon Dioxide BUN 58 H Creatinine 1.9 H Glucose 169 H POC Glucose 195 H Lactic Acid Calcium Phosphorus Magnesium Direct Bilirubin AST ALT Alkaline Phosphatase Troponin T C-Reactive Protein Total Protein Albumin Prealbumin Triglycerides Cholesterol LDL Cholesterol Direct HDL Cholesterol Urine pH Urine WBC (Auto) Urine Creatinine Urine Total Protein Vancomycin Trough Rheumatoid Factor Complement C4 Miscellaneous Test Crossmatch 10/14/16 10/14/16 10/14/16 11:44 17:13 23:28 WBC RBC Hgb Hct MCV MCH MCHC RDW Plt Count Lymph % (Auto) [place] % (Auto) Lymph # [place] # Baso # Seg Neutrophils % Seg Neuts % (Manual) Lymphocytes % (Manual) Monocytes % (Manual) Eosinophils % (Manual) Basophils % (Manual) Nucleated RBC % Seg Neutrophils # Seg Neutrophils # Man Lymphocytes # (Manual) Monocytes # (Manual) Eosinophils # (Manual) PT INR Fibrinogen dRVVT Confirm Interp Factor V Activity POC ABG pH POC ABG pCO2 POC ABG pO2 Sodium Potassium Chloride Carbon Dioxide BUN Creatinine Glucose POC Glucose 174 H 121 H 151 H Lactic Acid Calcium Phosphorus Magnesium Direct Bilirubin AST ALT Alkaline Phosphatase Troponin T C-Reactive Protein Total Protein Albumin Prealbumin Triglycerides Cholesterol LDL Cholesterol Direct HDL Cholesterol Urine pH Urine WBC (Auto) Urine Creatinine Urine Total Protein Vancomycin Trough Rheumatoid Factor Complement C4 Miscellaneous Test Crossmatch 10/15/16 10/15/16 10/15/16 05:06 12:26 17:48 WBC RBC Hgb Hct MCV MCH MCHC RDW Plt Count Lymph % (Auto) [place] % (Auto) Lymph # [place] # Baso # Seg Neutrophils % Seg Neuts % (Manual) Lymphocytes % (Manual) Monocytes % (Manual) Eosinophils % (Manual) Basophils % (Manual) Nucleated RBC % Seg Neutrophils # Seg Neutrophils # Man Lymphocytes # (Manual) Monocytes # (Manual) Eosinophils # (Manual) PT INR Fibrinogen dRVVT Confirm Interp Factor V Activity POC ABG pH POC ABG pCO2 POC ABG pO2 Sodium Potassium Chloride Carbon Dioxide BUN Creatinine Glucose POC Glucose 151 H 149 H 153 H Lactic Acid Calcium Phosphorus Magnesium Direct Bilirubin AST ALT Alkaline Phosphatase Troponin T C-Reactive Protein Total Protein Albumin Prealbumin Triglycerides Cholesterol LDL Cholesterol Direct HDL Cholesterol Urine pH Urine WBC (Auto) Urine Creatinine Urine Total Protein Vancomycin Trough Rheumatoid Factor Complement C4 Miscellaneous Test Crossmatch 10/15/16 10/15/16 10/16/16 Unknown Unknown 00:02 WBC 23.4 H RBC 2.78 L Hgb 8.5 L Hct 25.7 L MCV MCH MCHC RDW 18.7 H Plt Count Lymph % (Auto) [place] % (Auto) Lymph # [place] # Baso # Seg Neutrophils % Seg Neuts % (Manual) Lymphocytes % (Manual) Monocytes % (Manual) Eosinophils % (Manual) Basophils % (Manual) Nucleated RBC % Seg Neutrophils # Seg Neutrophils # Man Lymphocytes # (Manual) Monocytes # (Manual) Eosinophils # (Manual) PT INR Fibrinogen dRVVT Confirm Interp Factor V Activity POC ABG pH POC ABG pCO2 POC ABG pO2 Sodium Potassium Chloride Carbon Dioxide BUN 73 H Creatinine 2.3 H Glucose 120 H POC Glucose 137 H Lactic Acid Calcium Phosphorus Magnesium Direct Bilirubin AST ALT Alkaline Phosphatase Troponin T C-Reactive Protein Total Protein Albumin Prealbumin Triglycerides Cholesterol LDL Cholesterol Direct HDL Cholesterol Urine pH Urine WBC (Auto) Urine Creatinine Urine Total Protein Vancomycin Trough Rheumatoid Factor Complement C4 Miscellaneous Test Crossmatch 10/16/16 10/16/16 10/16/16 05:44 06:25 06:25 WBC 22.5 H RBC 2.76 L Hgb 8.3 L Hct 25.2 L MCV MCH MCHC RDW 18.3 H Plt Count Lymph % (Auto) [place] % (Auto) Lymph # [place] # Baso # Seg Neutrophils % Seg Neuts % (Manual) Lymphocytes % (Manual) Monocytes % (Manual) Eosinophils % (Manual) Basophils % (Manual) Nucleated RBC % Seg Neutrophils # Seg Neutrophils # Man Lymphocytes # (Manual) Monocytes # (Manual) Eosinophils # (Manual) PT INR Fibrinogen dRVVT Confirm Interp Factor V Activity POC ABG pH POC ABG pCO2 POC ABG pO2 Sodium Potassium Chloride Carbon Dioxide BUN 92 H Creatinine 3.0 H Glucose 138 H POC Glucose 110 H Lactic Acid Calcium Phosphorus Magnesium Direct Bilirubin AST ALT Alkaline Phosphatase Troponin T C-Reactive Protein Total Protein Albumin Prealbumin Triglycerides Cholesterol LDL Cholesterol Direct HDL Cholesterol Urine pH Urine WBC (Auto) Urine Creatinine Urine Total Protein Vancomycin Trough Rheumatoid Factor Complement C4 Miscellaneous Test Crossmatch 10/16/16 10/16/16 10/16/16 11:27 11:48 17:36 WBC RBC Hgb Hct MCV MCH MCHC RDW Plt Count Lymph % (Auto) [place] % (Auto) Lymph # [place] # Baso # Seg Neutrophils % Seg Neuts % (Manual) Lymphocytes % (Manual) Monocytes % (Manual) Eosinophils % (Manual) Basophils % (Manual) Nucleated RBC % Seg Neutrophils # Seg Neutrophils # Man Lymphocytes # (Manual) Monocytes # (Manual) Eosinophils # (Manual) PT INR Fibrinogen dRVVT Confirm Interp Factor V Activity POC ABG pH 7.582 H POC ABG pCO2 27.4 L POC ABG pO2 110 H Sodium Potassium Chloride Carbon Dioxide BUN Creatinine Glucose POC Glucose 121 H 133 H Lactic Acid Calcium Phosphorus Magnesium Direct Bilirubin AST ALT Alkaline Phosphatase Troponin T C-Reactive Protein Total Protein Albumin Prealbumin Triglycerides Cholesterol LDL Cholesterol Direct HDL Cholesterol Urine pH Urine WBC (Auto) Urine Creatinine Urine Total Protein Vancomycin Trough Rheumatoid Factor Complement C4 Miscellaneous Test Crossmatch 10/16/16 10/17/16 10/17/16 20:48 04:24 04:24 WBC 21.4 H RBC 2.72 L Hgb 8.0 L Hct 25.2 L MCV MCH MCHC RDW 18.0 H Plt Count Lymph % (Auto) [place] % (Auto) Lymph # [place] # Baso # Seg Neutrophils % Seg Neuts % (Manual) Lymphocytes % (Manual) Monocytes % (Manual) Eosinophils % (Manual) Basophils % (Manual) Nucleated RBC % Seg Neutrophils # Seg Neutrophils # Man Lymphocytes # (Manual) Monocytes # (Manual) Eosinophils # (Manual) PT INR Fibrinogen dRVVT Confirm Interp Factor V Activity POC ABG pH 7.561 H POC ABG pCO2 24.4 L POC ABG pO2 77 L Sodium 148 H Potassium Chloride Carbon Dioxide BUN 104 H Creatinine 3.0 H Glucose 149 H POC Glucose Lactic Acid Calcium Phosphorus Magnesium Direct Bilirubin AST ALT Alkaline Phosphatase 138 H Troponin T C-Reactive Protein Total Protein 6.2 L Albumin 1.5 L Prealbumin Triglycerides Cholesterol LDL Cholesterol Direct HDL Cholesterol Urine pH Urine WBC (Auto) Urine Creatinine Urine Total Protein Vancomycin Trough Rheumatoid Factor Complement C4 Miscellaneous Test Crossmatch 10/17/16 10/17/16 10/17/16 06:02 12:17 17:14 WBC RBC Hgb Hct MCV MCH MCHC RDW Plt Count Lymph % (Auto) [place] % (Auto) Lymph # [place] # Baso # Seg Neutrophils % Seg Neuts % (Manual) Lymphocytes % (Manual) Monocytes % (Manual) Eosinophils % (Manual) Basophils % (Manual) Nucleated RBC % Seg Neutrophils # Seg Neutrophils # Man Lymphocytes # (Manual) Monocytes # (Manual) Eosinophils # (Manual) PT INR Fibrinogen dRVVT Confirm Interp Factor V Activity POC ABG pH POC ABG pCO2 POC ABG pO2 Sodium Potassium Chloride Carbon Dioxide BUN Creatinine Glucose POC Glucose 170 H 167 H 126 H Lactic Acid Calcium Phosphorus Magnesium Direct Bilirubin AST ALT Alkaline Phosphatase Troponin T C-Reactive Protein Total Protein Albumin Prealbumin Triglycerides Cholesterol LDL Cholesterol Direct HDL Cholesterol Urine pH Urine WBC (Auto) Urine Creatinine Urine Total Protein Vancomycin Trough Rheumatoid Factor Complement C4 Miscellaneous Test Crossmatch 10/17/16 10/18/16 10/18/16 23:17 04:00 04:00 WBC 20.7 H RBC 2.47 L Hgb 7.4 L Hct 22.9 L MCV MCH MCHC RDW 17.5 H Plt Count Lymph % (Auto) [place] % (Auto) Lymph # [place] # Baso # Seg Neutrophils % Seg Neuts % (Manual) Lymphocytes % (Manual) Monocytes % (Manual) Eosinophils % (Manual) Basophils % (Manual) Nucleated RBC % Seg Neutrophils # Seg Neutrophils # Man Lymphocytes # (Manual) Monocytes # (Manual) Eosinophils # (Manual) PT INR Fibrinogen dRVVT Confirm Interp Factor V Activity POC ABG pH POC ABG pCO2 POC ABG pO2 Sodium 149 H Potassium Chloride 107.9 H Carbon Dioxide 20 L BUN 117 H Creatinine 3.2 H Glucose 119 H POC Glucose 121 H Lactic Acid Calcium Phosphorus Magnesium Direct Bilirubin AST ALT Alkaline Phosphatase Troponin T C-Reactive Protein Total Protein Albumin Prealbumin Triglycerides Cholesterol LDL Cholesterol Direct HDL Cholesterol Urine pH Urine WBC (Auto) Urine Creatinine Urine Total Protein Vancomycin Trough Rheumatoid Factor Complement C4 Miscellaneous Test Crossmatch 10/18/16 10/18/16 10/18/16 05:23 10:46 17:30 WBC RBC Hgb Hct MCV MCH MCHC RDW Plt Count Lymph % (Auto) [place] % (Auto) Lymph # [place] # Baso # Seg Neutrophils % Seg Neuts % (Manual) Lymphocytes % (Manual) Monocytes % (Manual) Eosinophils % (Manual) Basophils % (Manual) Nucleated RBC % Seg Neutrophils # Seg Neutrophils # Man Lymphocytes # (Manual) Monocytes # (Manual) Eosinophils # (Manual) PT INR Fibrinogen dRVVT Confirm Interp Factor V Activity POC ABG pH POC ABG pCO2 POC ABG pO2 Sodium Potassium Chloride Carbon Dioxide BUN Creatinine Glucose POC Glucose 119 H 155 H 124 H Lactic Acid Calcium Phosphorus Magnesium Direct Bilirubin AST ALT Alkaline Phosphatase Troponin T C-Reactive Protein Total Protein Albumin Prealbumin Triglycerides Cholesterol LDL Cholesterol Direct HDL Cholesterol Urine pH Urine WBC (Auto) Urine Creatinine Urine Total Protein Vancomycin Trough Rheumatoid Factor Complement C4 Miscellaneous Test Crossmatch 10/19/16 10/19/16 10/19/16 04:00 04:00 05:25 WBC 17.4 H RBC 2.54 L Hgb 7.7 L Hct 23.6 L MCV MCH MCHC RDW 17.3 H Plt Count Lymph % (Auto) [place] % (Auto) Lymph # [place] # Baso # Seg Neutrophils % Seg Neuts % (Manual) Lymphocytes % (Manual) Monocytes % (Manual) Eosinophils % (Manual) Basophils % (Manual) Nucleated RBC % Seg Neutrophils # Seg Neutrophils # Man Lymphocytes # (Manual) Monocytes # (Manual) Eosinophils # (Manual) PT INR Fibrinogen dRVVT Confirm Interp Factor V Activity POC ABG pH POC ABG pCO2 POC ABG pO2 Sodium Potassium Chloride Carbon Dioxide BUN 72 H Creatinine 2.1 H Glucose 116 H POC Glucose 119 H Lactic Acid Calcium Phosphorus Magnesium Direct Bilirubin AST ALT Alkaline Phosphatase Troponin T C-Reactive Protein Total Protein Albumin Prealbumin Triglycerides Cholesterol LDL Cholesterol Direct HDL Cholesterol Urine pH Urine WBC (Auto) Urine Creatinine Urine Total Protein Vancomycin Trough Rheumatoid Factor Complement C4 Miscellaneous Test Crossmatch 10/19/16 10/19/16 10/20/16 11:46 23:59 06:00 WBC RBC Hgb Hct MCV MCH MCHC RDW Plt Count Lymph % (Auto) [place] % (Auto) Lymph # [place] # Baso # Seg Neutrophils % Seg Neuts % (Manual) Lymphocytes % (Manual) Monocytes % (Manual) Eosinophils % (Manual) Basophils % (Manual) Nucleated RBC % Seg Neutrophils # Seg Neutrophils # Man Lymphocytes # (Manual) Monocytes # (Manual) Eosinophils # (Manual) PT INR Fibrinogen dRVVT Confirm Interp Factor V Activity POC ABG pH POC ABG pCO2 POC ABG pO2 Sodium Potassium Chloride Carbon Dioxide 17 L BUN 94 H Creatinine 2.7 H Glucose POC Glucose 116 H 117 H Lactic Acid Calcium Phosphorus Magnesium Direct Bilirubin AST ALT Alkaline Phosphatase Troponin T C-Reactive Protein Total Protein Albumin Prealbumin Triglycerides Cholesterol LDL Cholesterol Direct HDL Cholesterol Urine pH Urine WBC (Auto) Urine Creatinine Urine Total Protein Vancomycin Trough Rheumatoid Factor Complement C4 Miscellaneous Test Crossmatch 10/20/16 10/20/16 10/20/16 06:00 11:49 16:00 WBC 19.7 H RBC 2.51 L Hgb 7.7 L Hct 23.5 L MCV MCH MCHC RDW 17.5 H Plt Count Lymph % (Auto) [place] % (Auto) Lymph # [place] # Baso # Seg Neutrophils % Seg Neuts % (Manual) Lymphocytes % (Manual) Monocytes % (Manual) Eosinophils % (Manual) Basophils % (Manual) Nucleated RBC % Seg Neutrophils # Seg Neutrophils # Man Lymphocytes # (Manual) Monocytes # (Manual) Eosinophils # (Manual) PT INR Fibrinogen dRVVT Confirm Interp Factor V Activity POC ABG pH POC ABG pCO2 POC ABG pO2 Sodium Potassium Chloride Carbon Dioxide BUN Creatinine Glucose POC Glucose 117 H Lactic Acid Calcium Phosphorus Magnesium Direct Bilirubin AST ALT Alkaline Phosphatase Troponin T C-Reactive Protein Total Protein Albumin Prealbumin Triglycerides Cholesterol LDL Cholesterol Direct HDL Cholesterol Urine pH Urine WBC (Auto) Urine Creatinine Urine Total Protein Vancomycin Trough Rheumatoid Factor Complement C4 Miscellaneous Test Flexitest 1 H Crossmatch 10/20/16 10/20/16 10/21/16 18:36 23:39 04:00 WBC RBC Hgb Hct MCV MCH MCHC RDW Plt Count Lymph % (Auto) [place] % (Auto) Lymph # [place] # Baso # Seg Neutrophils % Seg Neuts % (Manual) Lymphocytes % (Manual) Monocytes % (Manual) Eosinophils % (Manual) Basophils % (Manual) Nucleated RBC % Seg Neutrophils # Seg Neutrophils # Man Lymphocytes # (Manual) Monocytes # (Manual) Eosinophils # (Manual) PT INR Fibrinogen dRVVT Confirm Interp Factor V Activity POC ABG pH POC ABG pCO2 POC ABG pO2 Sodium Potassium 5.4 H D Chloride Carbon Dioxide 15 L BUN 110 H Creatinine 3.0 H Glucose POC Glucose 127 H 114 H Lactic Acid Calcium Phosphorus Magnesium Direct Bilirubin AST ALT Alkaline Phosphatase Troponin T C-Reactive Protein Total Protein Albumin Prealbumin Triglycerides Cholesterol LDL Cholesterol Direct HDL Cholesterol Urine pH Urine WBC (Auto) Urine Creatinine Urine Total Protein Vancomycin Trough Rheumatoid Factor Complement C4 Miscellaneous Test Crossmatch 10/21/16 10/21/16 10/22/16 05:54 23:46 05:18 WBC RBC Hgb Hct MCV MCH MCHC RDW Plt Count Lymph % (Auto) [place] % (Auto) Lymph # [place] # Baso # Seg Neutrophils % Seg Neuts % (Manual) Lymphocytes % (Manual) Monocytes % (Manual) Eosinophils % (Manual) Basophils % (Manual) Nucleated RBC % Seg Neutrophils # Seg Neutrophils # Man Lymphocytes # (Manual) Monocytes # (Manual) Eosinophils # (Manual) PT INR Fibrinogen dRVVT Confirm Interp Factor V Activity POC ABG pH POC ABG pCO2 POC ABG pO2 Sodium Potassium Chloride Carbon Dioxide BUN Creatinine Glucose POC Glucose 119 H 108 H 109 H Lactic Acid Calcium Phosphorus Magnesium Direct Bilirubin AST ALT Alkaline Phosphatase Troponin T C-Reactive Protein Total Protein Albumin Prealbumin Triglycerides Cholesterol LDL Cholesterol Direct HDL Cholesterol Urine pH Urine WBC (Auto) Urine Creatinine Urine Total Protein Vancomycin Trough Rheumatoid Factor Complement C4 Miscellaneous Test Crossmatch 10/22/16 10/22/16 10/22/16 06:40 06:40 06:40 WBC 14.0 H RBC 2.03 L Hgb 7.0 L Hct 20.5 L MCV 98 H MCH 34 H MCHC 35 H RDW 17.8 H Plt Count Lymph % (Auto) [place] % (Auto) 9.9 H Lymph # [place] # 1.4 H Baso # 0.2 H Seg Neutrophils % 72.0 H Seg Neuts % (Manual) Lymphocytes % (Manual) Monocytes % (Manual) Eosinophils % (Manual) Basophils % (Manual) Nucleated RBC % Seg Neutrophils # 10.0 H Seg Neutrophils # Man Lymphocytes # (Manual) Monocytes # (Manual) Eosinophils # (Manual) PT INR Fibrinogen dRVVT Confirm Interp Factor V Activity POC ABG pH POC ABG pCO2 POC ABG pO2 Sodium 130 L D Potassium Chloride 92.4 L Carbon Dioxide 20 L BUN 50 H Creatinine 1.6 H Glucose 589 H* POC Glucose Lactic Acid Calcium 7.8 L D Phosphorus Magnesium 1.60 L Direct Bilirubin AST ALT Alkaline Phosphatase Troponin T C-Reactive Protein Total Protein Albumin Prealbumin Triglycerides Cholesterol LDL Cholesterol Direct HDL Cholesterol Urine pH Urine WBC (Auto) Urine Creatinine Urine Total Protein Vancomycin Trough Rheumatoid Factor Complement C4 Miscellaneous Test Crossmatch 10/22/16 10/22/16 10/22/16 11:39 16:44 23:36 WBC RBC Hgb Hct MCV MCH MCHC RDW Plt Count Lymph % (Auto) [place] % (Auto) Lymph # [place] # Baso # Seg Neutrophils % Seg Neuts % (Manual) Lymphocytes % (Manual) Monocytes % (Manual) Eosinophils % (Manual) Basophils % (Manual) Nucleated RBC % Seg Neutrophils # Seg Neutrophils # Man Lymphocytes # (Manual) Monocytes # (Manual) Eosinophils # (Manual) PT INR Fibrinogen dRVVT Confirm Interp Factor V Activity POC ABG pH POC ABG pCO2 POC ABG pO2 Sodium Potassium Chloride Carbon Dioxide BUN Creatinine Glucose POC Glucose 142 H 163 H 123 H Lactic Acid Calcium Phosphorus Magnesium Direct Bilirubin AST ALT Alkaline Phosphatase Troponin T C-Reactive Protein Total Protein Albumin Prealbumin Triglycerides Cholesterol LDL Cholesterol Direct HDL Cholesterol Urine pH Urine WBC (Auto) Urine Creatinine Urine Total Protein Vancomycin Trough Rheumatoid Factor Complement C4 Miscellaneous Test Crossmatch 10/23/16 10/23/16 10/23/16 04:58 06:00 12:12 WBC RBC Hgb Hct MCV MCH MCHC RDW Plt Count Lymph % (Auto) [place] % (Auto) Lymph # [place] # Baso # Seg Neutrophils % Seg Neuts % (Manual) Lymphocytes % (Manual) Monocytes % (Manual) Eosinophils % (Manual) Basophils % (Manual) Nucleated RBC % Seg Neutrophils # Seg Neutrophils # Man Lymphocytes # (Manual) Monocytes # (Manual) Eosinophils # (Manual) PT INR Fibrinogen dRVVT Confirm Interp Factor V Activity POC ABG pH POC ABG pCO2 POC ABG pO2 Sodium 133 L Potassium 3.5 L Chloride 96.1 L Carbon Dioxide 18 L BUN 76 H Creatinine 2.1 H Glucose POC Glucose 133 H 138 H Lactic Acid Calcium 8.3 L Phosphorus Magnesium Direct Bilirubin AST ALT Alkaline Phosphatase Troponin T C-Reactive Protein Total Protein Albumin Prealbumin Triglycerides Cholesterol LDL Cholesterol Direct HDL Cholesterol Urine pH Urine WBC (Auto) Urine Creatinine Urine Total Protein Vancomycin Trough Rheumatoid Factor Complement C4 Miscellaneous Test Crossmatch 10/23/16 10/23/16 10/24/16 16:53 23:37 04:00 WBC RBC Hgb Hct MCV MCH MCHC RDW Plt Count Lymph % (Auto) [place] % (Auto) Lymph # [place] # Baso # Seg Neutrophils % Seg Neuts % (Manual) Lymphocytes % (Manual) Monocytes % (Manual) Eosinophils % (Manual) Basophils % (Manual) Nucleated RBC % Seg Neutrophils # Seg Neutrophils # Man Lymphocytes # (Manual) Monocytes # (Manual) Eosinophils # (Manual) PT INR Fibrinogen dRVVT Confirm Interp Factor V Activity POC ABG pH POC ABG pCO2 POC ABG pO2 Sodium 131 L Potassium Chloride 94.5 L Carbon Dioxide 19 L BUN 97 H Creatinine 2.6 H Glucose 110 H POC Glucose 125 H 123 H Lactic Acid Calcium 8.3 L Phosphorus Magnesium Direct Bilirubin AST ALT Alkaline Phosphatase Troponin T C-Reactive Protein Total Protein Albumin Prealbumin Triglycerides Cholesterol LDL Cholesterol Direct HDL Cholesterol Urine pH Urine WBC (Auto) Urine Creatinine Urine Total Protein Vancomycin Trough Rheumatoid Factor Complement C4 Miscellaneous Test Crossmatch 10/24/16 10/24/16 10/24/16 07:49 11:39 17:52 WBC RBC Hgb 6.0 L Hct 19.7 L* MCV MCH MCHC RDW Plt Count Lymph % (Auto) [place] % (Auto) Lymph # [place] # Baso # Seg Neutrophils % Seg Neuts % (Manual) Lymphocytes % (Manual) Monocytes % (Manual) Eosinophils % (Manual) Basophils % (Manual) Nucleated RBC % Seg Neutrophils # Seg Neutrophils # Man Lymphocytes # (Manual) Monocytes # (Manual) Eosinophils # (Manual) PT INR Fibrinogen dRVVT Confirm Interp Factor V Activity POC ABG pH POC ABG pCO2 POC ABG pO2 Sodium Potassium Chloride Carbon Dioxide BUN Creatinine Glucose POC Glucose 106 H 158 H Lactic Acid Calcium Phosphorus Magnesium Direct Bilirubin AST ALT Alkaline Phosphatase Troponin T C-Reactive Protein Total Protein Albumin Prealbumin Triglycerides Cholesterol LDL Cholesterol Direct HDL Cholesterol Urine pH Urine WBC (Auto) Urine Creatinine Urine Total Protein Vancomycin Trough Rheumatoid Factor Complement C4 Miscellaneous Test Crossmatch 10/24/16 10/24/16 10/24/16 20:00 22:27 Unknown WBC RBC Hgb 9.4 L D Hct 27.5 L D MCV MCH MCHC RDW Plt Count Lymph % (Auto) [place] % (Auto) Lymph # [place] # Baso # Seg Neutrophils % Seg Neuts % (Manual) Lymphocytes % (Manual) Monocytes % (Manual) Eosinophils % (Manual) Basophils % (Manual) Nucleated RBC % Seg Neutrophils # Seg Neutrophils # Man Lymphocytes # (Manual) Monocytes # (Manual) Eosinophils # (Manual) PT INR Fibrinogen dRVVT Confirm Interp Factor V Activity POC ABG pH POC ABG pCO2 POC ABG pO2 Sodium Potassium Chloride Carbon Dioxide BUN Creatinine Glucose POC Glucose 125 H Lactic Acid Calcium Phosphorus Magnesium Direct Bilirubin AST ALT Alkaline Phosphatase Troponin T C-Reactive Protein Total Protein Albumin Prealbumin Triglycerides Cholesterol LDL Cholesterol Direct HDL Cholesterol Urine pH Urine WBC (Auto) Urine Creatinine Urine Total Protein Vancomycin Trough Rheumatoid Factor Complement C4 Miscellaneous Test Crossmatch See Detail 10/25/16 10/25/16 10/25/16 04:00 04:00 04:00 WBC 14.2 H RBC 2.98 L Hgb 9.0 L Hct 26.2 L MCV MCH MCHC RDW 16.6 H Plt Count Lymph % (Auto) [place] % (Auto) 10.7 H Lymph # [place] # 1.5 H Baso # Seg Neutrophils % 73.6 H Seg Neuts % (Manual) Lymphocytes % (Manual) Monocytes % (Manual) Eosinophils % (Manual) Basophils % (Manual) Nucleated RBC % Seg Neutrophils # 10.5 H Seg Neutrophils # Man Lymphocytes # (Manual) Monocytes # (Manual) Eosinophils # (Manual) PT INR Fibrinogen dRVVT Confirm Interp Factor V Activity POC ABG pH POC ABG pCO2 POC ABG pO2 Sodium 132 L Potassium Chloride 94.7 L Carbon Dioxide BUN 51 H Creatinine 1.6 H Glucose 130 H POC Glucose Lactic Acid Calcium 8.3 L Phosphorus 1.60 L D Magnesium Direct Bilirubin AST ALT Alkaline Phosphatase Troponin T C-Reactive Protein Total Protein Albumin Prealbumin Triglycerides Cholesterol LDL Cholesterol Direct HDL Cholesterol Urine pH Urine WBC (Auto) Urine Creatinine Urine Total Protein Vancomycin Trough Rheumatoid Factor Complement C4 Miscellaneous Test Crossmatch 10/25/16 10/25/16 10/25/16 04:32 11:48 17:22 WBC RBC Hgb Hct MCV MCH MCHC RDW Plt Count Lymph % (Auto) [place] % (Auto) Lymph # [place] # Baso # Seg Neutrophils % Seg Neuts % (Manual) Lymphocytes % (Manual) Monocytes % (Manual) Eosinophils % (Manual) Basophils % (Manual) Nucleated RBC % Seg Neutrophils # Seg Neutrophils # Man Lymphocytes # (Manual) Monocytes # (Manual) Eosinophils # (Manual) PT INR Fibrinogen dRVVT Confirm Interp Factor V Activity POC ABG pH POC ABG pCO2 POC ABG pO2 Sodium Potassium Chloride Carbon Dioxide BUN Creatinine Glucose POC Glucose 124 H 171 H 120 H Lactic Acid Calcium Phosphorus Magnesium Direct Bilirubin AST ALT Alkaline Phosphatase Troponin T C-Reactive Protein Total Protein Albumin Prealbumin Triglycerides Cholesterol LDL Cholesterol Direct HDL Cholesterol Urine pH Urine WBC (Auto) Urine Creatinine Urine Total Protein Vancomycin Trough Rheumatoid Factor Complement C4 Miscellaneous Test Crossmatch 10/26/16 10/26/16 10/26/16 04:54 07:06 07:06 WBC 16.9 H RBC 3.06 L Hgb 9.1 L Hct 26.9 L MCV MCH MCHC RDW 16.9 H Plt Count Lymph % (Auto) [place] % (Auto) Lymph # [place] # Baso # Seg Neutrophils % Seg Neuts % (Manual) 71.0 H Lymphocytes % (Manual) 5.0 L Monocytes % (Manual) 12.0 H Eosinophils % (Manual) Basophils % (Manual) Nucleated RBC % Seg Neutrophils # Seg Neutrophils # Man 12.0 H Lymphocytes # (Manual) 0.8 L Monocytes # (Manual) 2.0 H Eosinophils # (Manual) PT INR Fibrinogen dRVVT Confirm Interp Factor V Activity POC ABG pH POC ABG pCO2 POC ABG pO2 Sodium 135 L Potassium Chloride 97.1 L Carbon Dioxide BUN 73 H Creatinine 2.2 H Glucose 117 H POC Glucose 123 H Lactic Acid Calcium Phosphorus 1.70 L Magnesium Direct Bilirubin AST ALT Alkaline Phosphatase Troponin T C-Reactive Protein Total Protein Albumin Prealbumin Triglycerides Cholesterol LDL Cholesterol Direct HDL Cholesterol Urine pH Urine WBC (Auto) Urine Creatinine Urine Total Protein Vancomycin Trough Rheumatoid Factor Complement C4 Miscellaneous Test Crossmatch 10/26/16 10/26/16 10/26/16 12:12 17:29 23:42 WBC RBC Hgb Hct MCV MCH MCHC RDW Plt Count Lymph % (Auto) [place] % (Auto) Lymph # [place] # Baso # Seg Neutrophils % Seg Neuts % (Manual) Lymphocytes % (Manual) Monocytes % (Manual) Eosinophils % (Manual) Basophils % (Manual) Nucleated RBC % Seg Neutrophils # Seg Neutrophils # Man Lymphocytes # (Manual) Monocytes # (Manual) Eosinophils # (Manual) PT INR Fibrinogen dRVVT Confirm Interp Factor V Activity POC ABG pH POC ABG pCO2 POC ABG pO2 Sodium Potassium Chloride Carbon Dioxide BUN Creatinine Glucose POC Glucose 126 H 161 H 118 H Lactic Acid Calcium Phosphorus Magnesium Direct Bilirubin AST ALT Alkaline Phosphatase Troponin T C-Reactive Protein Total Protein Albumin Prealbumin Triglycerides Cholesterol LDL Cholesterol Direct HDL Cholesterol Urine pH Urine WBC (Auto) Urine Creatinine Urine Total Protein Vancomycin Trough Rheumatoid Factor Complement C4 Miscellaneous Test Crossmatch 10/27/16 10/27/16 10/27/16 05:03 06:30 06:30 WBC 13.9 H RBC 3.09 L Hgb 9.2 L Hct 27.5 L MCV MCH MCHC RDW 17.0 H Plt Count Lymph % (Auto) [place] % (Auto) Lymph # [place] # Baso # Seg Neutrophils % Seg Neuts % (Manual) 78.0 H Lymphocytes % (Manual) Monocytes % (Manual) Eosinophils % (Manual) Basophils % (Manual) Nucleated RBC % 2.0 H Seg Neutrophils # Seg Neutrophils # Man 10.8 H Lymphocytes # (Manual) Monocytes # (Manual) 1.0 H Eosinophils # (Manual) PT INR Fibrinogen dRVVT Confirm Interp Factor V Activity POC ABG pH POC ABG pCO2 POC ABG pO2 Sodium Potassium Chloride Carbon Dioxide BUN 40 H Creatinine 1.5 H Glucose 135 H POC Glucose 107 H Lactic Acid Calcium 8.3 L Phosphorus 1.30 L D Magnesium Direct Bilirubin AST ALT Alkaline Phosphatase Troponin T C-Reactive Protein Total Protein Albumin Prealbumin Triglycerides Cholesterol LDL Cholesterol Direct HDL Cholesterol Urine pH Urine WBC (Auto) Urine Creatinine Urine Total Protein Vancomycin Trough Rheumatoid Factor Complement C4 Miscellaneous Test Crossmatch 10/27/16 10/27/16 10/27/16 13:27 18:07 23:40 WBC RBC Hgb Hct MCV MCH MCHC RDW Plt Count Lymph % (Auto) [place] % (Auto) Lymph # [place] # Baso # Seg Neutrophils % Seg Neuts % (Manual) Lymphocytes % (Manual) Monocytes % (Manual) Eosinophils % (Manual) Basophils % (Manual) Nucleated RBC % Seg Neutrophils # Seg Neutrophils # Man Lymphocytes # (Manual) Monocytes # (Manual) Eosinophils # (Manual) PT INR Fibrinogen dRVVT Confirm Interp Factor V Activity POC ABG pH POC ABG pCO2 POC ABG pO2 Sodium Potassium Chloride Carbon Dioxide BUN Creatinine Glucose POC Glucose 117 H 121 H 118 H Lactic Acid Calcium Phosphorus Magnesium Direct Bilirubin AST ALT Alkaline Phosphatase Troponin T C-Reactive Protein Total Protein Albumin Prealbumin Triglycerides Cholesterol LDL Cholesterol Direct HDL Cholesterol Urine pH Urine WBC (Auto) Urine Creatinine Urine Total Protein Vancomycin Trough Rheumatoid Factor Complement C4 Miscellaneous Test Crossmatch 10/28/16 10/28/16 10/28/16 05:48 06:45 06:45 WBC 14.7 H RBC 3.05 L Hgb 9.0 L Hct 26.9 L MCV MCH MCHC RDW 16.8 H Plt Count Lymph % (Auto) 8.2 L [place] % (Auto) 8.4 H Lymph # [place] # 1.2 H Baso # Seg Neutrophils % 81.9 H Seg Neuts % (Manual) Lymphocytes % (Manual) Monocytes % (Manual) Eosinophils % (Manual) Basophils % (Manual) Nucleated RBC % Seg Neutrophils # 12.1 H Seg Neutrophils # Man Lymphocytes # (Manual) Monocytes # (Manual) Eosinophils # (Manual) PT INR Fibrinogen dRVVT Confirm Interp Factor V Activity POC ABG pH POC ABG pCO2 POC ABG pO2 Sodium Potassium Chloride Carbon Dioxide BUN 60 H Creatinine 1.9 H Glucose 120 H POC Glucose 114 H Lactic Acid Calcium Phosphorus Magnesium Direct Bilirubin AST ALT Alkaline Phosphatase Troponin T C-Reactive Protein Total Protein Albumin Prealbumin Triglycerides Cholesterol LDL Cholesterol Direct HDL Cholesterol Urine pH Urine WBC (Auto) Urine Creatinine Urine Total Protein Vancomycin Trough Rheumatoid Factor Complement C4 Miscellaneous Test Crossmatch 10/28/16 10/28/16 10/29/16 17:08 23:50 05:10 WBC RBC Hgb Hct MCV MCH MCHC RDW Plt Count Lymph % (Auto) [place] % (Auto) Lymph # [place] # Baso # Seg Neutrophils % Seg Neuts % (Manual) Lymphocytes % (Manual) Monocytes % (Manual) Eosinophils % (Manual) Basophils % (Manual) Nucleated RBC % Seg Neutrophils # Seg Neutrophils # Man Lymphocytes # (Manual) Monocytes # (Manual) Eosinophils # (Manual) PT INR Fibrinogen dRVVT Confirm Interp Factor V Activity POC ABG pH POC ABG pCO2 POC ABG pO2 Sodium Potassium Chloride Carbon Dioxide BUN Creatinine Glucose POC Glucose 109 H 110 H 124 H Lactic Acid Calcium Phosphorus Magnesium Direct Bilirubin AST ALT Alkaline Phosphatase Troponin T C-Reactive Protein Total Protein Albumin Prealbumin Triglycerides Cholesterol LDL Cholesterol Direct HDL Cholesterol Urine pH Urine WBC (Auto) Urine Creatinine Urine Total Protein Vancomycin Trough Rheumatoid Factor Complement C4 Miscellaneous Test Crossmatch 10/29/16 10/29/16 10/29/16 07:45 07:45 12:19 WBC 14.7 H RBC 3.15 L Hgb 9.3 L Hct 28.9 L MCV MCH MCHC RDW 17.0 H Plt Count Lymph % (Auto) 11.9 L [place] % (Auto) 8.6 H Lymph # [place] # 1.3 H Baso # Seg Neutrophils % 78.1 H Seg Neuts % (Manual) Lymphocytes % (Manual) Monocytes % (Manual) Eosinophils % (Manual) Basophils % (Manual) Nucleated RBC % Seg Neutrophils # 11.4 H Seg Neutrophils # Man Lymphocytes # (Manual) Monocytes # (Manual) Eosinophils # (Manual) PT INR Fibrinogen dRVVT Confirm Interp Factor V Activity POC ABG pH POC ABG pCO2 POC ABG pO2 Sodium Potassium 5.1 H Chloride Carbon Dioxide 19 L BUN 78 H Creatinine 2.2 H Glucose 116 H POC Glucose 118 H Lactic Acid Calcium Phosphorus Magnesium Direct Bilirubin AST ALT Alkaline Phosphatase Troponin T C-Reactive Protein Total Protein Albumin Prealbumin Triglycerides Cholesterol LDL Cholesterol Direct HDL Cholesterol Urine pH Urine WBC (Auto) Urine Creatinine Urine Total Protein Vancomycin Trough Rheumatoid Factor Complement C4 Miscellaneous Test Crossmatch 10/29/16 10/30/16 10/30/16 17:49 01:52 03:28 WBC RBC Hgb Hct MCV MCH MCHC RDW Plt Count Lymph % (Auto) [place] % (Auto) Lymph # [place] # Baso # Seg Neutrophils % Seg Neuts % (Manual) Lymphocytes % (Manual) Monocytes % (Manual) Eosinophils % (Manual) Basophils % (Manual) Nucleated RBC % Seg Neutrophils # Seg Neutrophils # Man Lymphocytes # (Manual) Monocytes # (Manual) Eosinophils # (Manual) PT INR Fibrinogen dRVVT Confirm Interp Factor V Activity POC ABG pH POC ABG pCO2 POC ABG pO2 Sodium Potassium 5.4 H Chloride 97.5 L Carbon Dioxide 19 L BUN 90 H Creatinine 2.5 H Glucose POC Glucose 120 H 129 H Lactic Acid Calcium Phosphorus 5.20 H Magnesium Direct Bilirubin AST ALT Alkaline Phosphatase Troponin T C-Reactive Protein Total Protein Albumin Prealbumin Triglycerides Cholesterol LDL Cholesterol Direct HDL Cholesterol Urine pH Urine WBC (Auto) Urine Creatinine Urine Total Protein Vancomycin Trough Rheumatoid Factor Complement C4 Miscellaneous Test Crossmatch 10/30/16 10/30/16 10/30/16 03:28 08:19 08:19 WBC 11.6 H 15.9 H RBC 2.75 L 2.82 L Hgb 7.9 L 8.3 L Hct 24.2 L 25.2 L MCV MCH MCHC RDW 16.7 H 17.2 H Plt Count Lymph % (Auto) [place] % (Auto) 9.8 H Lymph # [place] # 1.1 H Baso # Seg Neutrophils % 74.2 H Seg Neuts % (Manual) Lymphocytes % (Manual) Monocytes % (Manual) Eosinophils % (Manual) Basophils % (Manual) Nucleated RBC % Seg Neutrophils # 8.6 H Seg Neutrophils # Man Lymphocytes # (Manual) Monocytes # (Manual) Eosinophils # (Manual) PT INR Fibrinogen dRVVT Confirm Interp Factor V Activity POC ABG pH POC ABG pCO2 POC ABG pO2 Sodium Potassium 5.3 H Chloride 97.4 L Carbon Dioxide 19 L BUN 93 H Creatinine 2.6 H Glucose POC Glucose Lactic Acid Calcium Phosphorus Magnesium Direct Bilirubin AST ALT Alkaline Phosphatase Troponin T C-Reactive Protein Total Protein Albumin Prealbumin Triglycerides Cholesterol LDL Cholesterol Direct HDL Cholesterol Urine pH Urine WBC (Auto) Urine Creatinine Urine Total Protein Vancomycin Trough Rheumatoid Factor Complement C4 Miscellaneous Test Crossmatch 10/30/16 10/30/16 10/31/16 17:11 23:56 00:40 WBC RBC Hgb Hct MCV MCH MCHC RDW Plt Count Lymph % (Auto) [place] % (Auto) Lymph # [place] # Baso # Seg Neutrophils % Seg Neuts % (Manual) Lymphocytes % (Manual) Monocytes % (Manual) Eosinophils % (Manual) Basophils % (Manual) Nucleated RBC % Seg Neutrophils # Seg Neutrophils # Man Lymphocytes # (Manual) Monocytes # (Manual) Eosinophils # (Manual) PT INR Fibrinogen dRVVT Confirm Interp Factor V Activity POC ABG pH POC ABG pCO2 POC ABG pO2 Sodium Potassium Chloride Carbon Dioxide BUN Creatinine Glucose POC Glucose 106 H 117 H 120 H Lactic Acid Calcium Phosphorus Magnesium Direct Bilirubin AST ALT Alkaline Phosphatase Troponin T C-Reactive Protein Total Protein Albumin Prealbumin Triglycerides Cholesterol LDL Cholesterol Direct HDL Cholesterol Urine pH Urine WBC (Auto) Urine Creatinine Urine Total Protein Vancomycin Trough Rheumatoid Factor Complement C4 Miscellaneous Test Crossmatch 10/31/16 10/31/16 10/31/16 05:43 07:15 07:15 WBC 12.1 H RBC 2.63 L Hgb 7.7 L Hct 23.3 L MCV MCH MCHC RDW 16.7 H Plt Count Lymph % (Auto) 11.7 L [place] % (Auto) 7.7 H Lymph # [place] # 0.9 H Baso # Seg Neutrophils % 78.0 H Seg Neuts % (Manual) Lymphocytes % (Manual) Monocytes % (Manual) Eosinophils % (Manual) Basophils % (Manual) Nucleated RBC % Seg Neutrophils # 9.4 H Seg Neutrophils # Man Lymphocytes # (Manual) Monocytes # (Manual) Eosinophils # (Manual) PT INR Fibrinogen dRVVT Confirm Interp Factor V Activity POC ABG pH POC ABG pCO2 POC ABG pO2 Sodium Potassium Chloride 96.4 L Carbon Dioxide 21 L BUN 99 H Creatinine 2.6 H Glucose 144 H POC Glucose 125 H Lactic Acid Calcium Phosphorus 4.80 H Magnesium Direct Bilirubin AST ALT Alkaline Phosphatase Troponin T C-Reactive Protein Total Protein Albumin Prealbumin Triglycerides Cholesterol LDL Cholesterol Direct HDL Cholesterol Urine pH Urine WBC (Auto) Urine Creatinine Urine Total Protein Vancomycin Trough Rheumatoid Factor Complement C4 Miscellaneous Test Crossmatch 10/31/16 10/31/16 11/01/16 11:46 18:34 00:20 WBC RBC Hgb Hct MCV MCH MCHC RDW Plt Count Lymph % (Auto) [place] % (Auto) Lymph # [place] # Baso # Seg Neutrophils % Seg Neuts % (Manual) Lymphocytes % (Manual) Monocytes % (Manual) Eosinophils % (Manual) Basophils % (Manual) Nucleated RBC % Seg Neutrophils # Seg Neutrophils # Man Lymphocytes # (Manual) Monocytes # (Manual) Eosinophils # (Manual) PT INR Fibrinogen dRVVT Confirm Interp Factor V Activity POC ABG pH POC ABG pCO2 POC ABG pO2 Sodium Potassium Chloride Carbon Dioxide BUN Creatinine Glucose POC Glucose 159 H 140 H 132 H Lactic Acid Calcium Phosphorus Magnesium Direct Bilirubin AST ALT Alkaline Phosphatase Troponin T C-Reactive Protein Total Protein Albumin Prealbumin Triglycerides Cholesterol LDL Cholesterol Direct HDL Cholesterol Urine pH Urine WBC (Auto) Urine Creatinine Urine Total Protein Vancomycin Trough Rheumatoid Factor Complement C4 Miscellaneous Test Crossmatch 11/01/16 11/01/16 11/01/16 04:55 04:55 06:11 WBC 11.2 H RBC 2.68 L Hgb 7.5 L Hct 23.7 L MCV MCH MCHC RDW 16.1 H Plt Count Lymph % (Auto) [place] % (Auto) 9.8 H Lymph # [place] # 1.1 H Baso # Seg Neutrophils % 70.8 H Seg Neuts % (Manual) Lymphocytes % (Manual) Monocytes % (Manual) Eosinophils % (Manual) Basophils % (Manual) Nucleated RBC % Seg Neutrophils # 7.9 H Seg Neutrophils # Man Lymphocytes # (Manual) Monocytes # (Manual) Eosinophils # (Manual) PT INR Fibrinogen dRVVT Confirm Interp Factor V Activity POC ABG pH POC ABG pCO2 POC ABG pO2 Sodium Potassium 3.3 L D Chloride Carbon Dioxide BUN 61 H Creatinine 1.9 H Glucose 114 H POC Glucose 115 H Lactic Acid Calcium Phosphorus 1.80 L D Magnesium Direct Bilirubin AST ALT Alkaline Phosphatase Troponin T C-Reactive Protein Total Protein Albumin Prealbumin Triglycerides Cholesterol LDL Cholesterol Direct HDL Cholesterol Urine pH Urine WBC (Auto) Urine Creatinine Urine Total Protein Vancomycin Trough Rheumatoid Factor Complement C4 Miscellaneous Test Crossmatch 11/01/16 11/01/16 11/01/16 12:29 18:23 23:58 WBC RBC Hgb Hct MCV MCH MCHC RDW Plt Count Lymph % (Auto) [place] % (Auto) Lymph # [place] # Baso # Seg Neutrophils % Seg Neuts % (Manual) Lymphocytes % (Manual) Monocytes % (Manual) Eosinophils % (Manual) Basophils % (Manual) Nucleated RBC % Seg Neutrophils # Seg Neutrophils # Man Lymphocytes # (Manual) Monocytes # (Manual) Eosinophils # (Manual) PT INR Fibrinogen dRVVT Confirm Interp Factor V Activity POC ABG pH POC ABG pCO2 POC ABG pO2 Sodium Potassium Chloride Carbon Dioxide BUN Creatinine Glucose POC Glucose 142 H 143 H 128 H Lactic Acid Calcium Phosphorus Magnesium Direct Bilirubin AST ALT Alkaline Phosphatase Troponin T C-Reactive Protein Total Protein Albumin Prealbumin Triglycerides Cholesterol LDL Cholesterol Direct HDL Cholesterol Urine pH Urine WBC (Auto) Urine Creatinine Urine Total Protein Vancomycin Trough Rheumatoid Factor Complement C4 Miscellaneous Test Crossmatch 11/02/16 11/02/16 11/02/16 04:16 05:29 11:58 WBC RBC Hgb Hct MCV MCH MCHC RDW Plt Count Lymph % (Auto) [place] % (Auto) Lymph # [place] # Baso # Seg Neutrophils % Seg Neuts % (Manual) Lymphocytes % (Manual) Monocytes % (Manual) Eosinophils % (Manual) Basophils % (Manual) Nucleated RBC % Seg Neutrophils # Seg Neutrophils # Man Lymphocytes # (Manual) Monocytes # (Manual) Eosinophils # (Manual) PT INR Fibrinogen dRVVT Confirm Interp Factor V Activity POC ABG pH POC ABG pCO2 POC ABG pO2 Sodium Potassium 3.1 L Chloride Carbon Dioxide BUN 73 H Creatinine 2.3 H Glucose 112 H POC Glucose 135 H 149 H Lactic Acid Calcium Phosphorus Magnesium Direct Bilirubin AST ALT Alkaline Phosphatase Troponin T C-Reactive Protein Total Protein Albumin Prealbumin Triglycerides Cholesterol LDL Cholesterol Direct HDL Cholesterol Urine pH Urine WBC (Auto) Urine Creatinine Urine Total Protein Vancomycin Trough Rheumatoid Factor Complement C4 Miscellaneous Test Crossmatch 11/02/16 11/02/16 11/03/16 17:42 22:54 06:00 WBC RBC Hgb Hct MCV MCH MCHC RDW Plt Count Lymph % (Auto) [place] % (Auto) Lymph # [place] # Baso # Seg Neutrophils % Seg Neuts % (Manual) Lymphocytes % (Manual) Monocytes % (Manual) Eosinophils % (Manual) Basophils % (Manual) Nucleated RBC % Seg Neutrophils # Seg Neutrophils # Man Lymphocytes # (Manual) Monocytes # (Manual) Eosinophils # (Manual) PT INR Fibrinogen dRVVT Confirm Interp Factor V Activity POC ABG pH POC ABG pCO2 POC ABG pO2 Sodium Potassium Chloride 96.7 L Carbon Dioxide BUN 41 H Creatinine 1.5 H Glucose 145 H POC Glucose 182 H 115 H Lactic Acid Calcium Phosphorus 1.60 L D Magnesium 1.50 L Direct Bilirubin AST ALT Alkaline Phosphatase Troponin T C-Reactive Protein Total Protein Albumin Prealbumin Triglycerides Cholesterol LDL Cholesterol Direct HDL Cholesterol Urine pH Urine WBC (Auto) Urine Creatinine Urine Total Protein Vancomycin Trough Rheumatoid Factor Complement C4 Miscellaneous Test Crossmatch 11/03/16 11/03/16 11/03/16 11:53 17:45 23:37 WBC RBC Hgb Hct MCV MCH MCHC RDW Plt Count Lymph % (Auto) [place] % (Auto) Lymph # [place] # Baso # Seg Neutrophils % Seg Neuts % (Manual) Lymphocytes % (Manual) Monocytes % (Manual) Eosinophils % (Manual) Basophils % (Manual) Nucleated RBC % Seg Neutrophils # Seg Neutrophils # Man Lymphocytes # (Manual) Monocytes # (Manual) Eosinophils # (Manual) PT INR Fibrinogen dRVVT Confirm Interp Factor V Activity POC ABG pH POC ABG pCO2 POC ABG pO2 Sodium Potassium Chloride Carbon Dioxide BUN Creatinine Glucose POC Glucose 131 H 134 H 113 H Lactic Acid Calcium Phosphorus Magnesium Direct Bilirubin AST ALT Alkaline Phosphatase Troponin T C-Reactive Protein Total Protein Albumin Prealbumin Triglycerides Cholesterol LDL Cholesterol Direct HDL Cholesterol Urine pH Urine WBC (Auto) Urine Creatinine Urine Total Protein Vancomycin Trough Rheumatoid Factor Complement C4 Miscellaneous Test Crossmatch 11/04/16 11/04/16 11/04/16 05:41 06:00 12:10 WBC RBC Hgb Hct MCV MCH MCHC RDW Plt Count Lymph % (Auto) [place] % (Auto) Lymph # [place] # Baso # Seg Neutrophils % Seg Neuts % (Manual) Lymphocytes % (Manual) Monocytes % (Manual) Eosinophils % (Manual) Basophils % (Manual) Nucleated RBC % Seg Neutrophils # Seg Neutrophils # Man Lymphocytes # (Manual) Monocytes # (Manual) Eosinophils # (Manual) PT INR Fibrinogen dRVVT Confirm Interp Factor V Activity POC ABG pH POC ABG pCO2 POC ABG pO2 Sodium Potassium Chloride 96.7 L Carbon Dioxide BUN 52 H Creatinine 1.9 H Glucose 126 H POC Glucose 137 H 191 H Lactic Acid Calcium Phosphorus Magnesium Direct Bilirubin AST ALT Alkaline Phosphatase Troponin T C-Reactive Protein Total Protein Albumin Prealbumin Triglycerides Cholesterol LDL Cholesterol Direct HDL Cholesterol Urine pH Urine WBC (Auto) Urine Creatinine Urine Total Protein Vancomycin Trough Rheumatoid Factor Complement C4 Miscellaneous Test Crossmatch 11/04/16 11/05/16 11/05/16 22:57 03:10 05:10 WBC RBC Hgb Hct MCV MCH MCHC RDW Plt Count Lymph % (Auto) [place] % (Auto) Lymph # [place] # Baso # Seg Neutrophils % Seg Neuts % (Manual) Lymphocytes % (Manual) Monocytes % (Manual) Eosinophils % (Manual) Basophils % (Manual) Nucleated RBC % Seg Neutrophils # Seg Neutrophils # Man Lymphocytes # (Manual) Monocytes # (Manual) Eosinophils # (Manual) PT INR Fibrinogen dRVVT Confirm Interp Factor V Activity POC ABG pH POC ABG pCO2 POC ABG pO2 Sodium 136 L Potassium Chloride 97.2 L Carbon Dioxide BUN 32 H Creatinine 1.3 H Glucose 123 H POC Glucose 125 H 108 H Lactic Acid Calcium 7.8 L Phosphorus Magnesium Direct Bilirubin AST ALT Alkaline Phosphatase Troponin T C-Reactive Protein Total Protein Albumin Prealbumin Triglycerides Cholesterol LDL Cholesterol Direct HDL Cholesterol Urine pH Urine WBC (Auto) Urine Creatinine Urine Total Protein Vancomycin Trough Rheumatoid Factor Complement C4 Miscellaneous Test Crossmatch 11/05/16 11/05/16 11/05/16 12:23 13:09 13:25 WBC RBC Hgb Hct MCV MCH MCHC RDW Plt Count Lymph % (Auto) [place] % (Auto) Lymph # [place] # Baso # Seg Neutrophils % Seg Neuts % (Manual) Lymphocytes % (Manual) Monocytes % (Manual) Eosinophils % (Manual) Basophils % (Manual) Nucleated RBC % Seg Neutrophils # Seg Neutrophils # Man Lymphocytes # (Manual) Monocytes # (Manual) Eosinophils # (Manual) PT INR Fibrinogen dRVVT Confirm Interp Factor V Activity POC ABG pH POC ABG pCO2 POC ABG pO2 Sodium Potassium Chloride Carbon Dioxide BUN Creatinine Glucose POC Glucose 124 H Lactic Acid Calcium Phosphorus Magnesium Direct Bilirubin AST ALT Alkaline Phosphatase Troponin T C-Reactive Protein 11.40 H Total Protein Albumin Prealbumin Triglycerides Cholesterol LDL Cholesterol Direct HDL Cholesterol Urine pH 9.0 H Urine WBC (Auto) Urine Creatinine Urine Total Protein Vancomycin Trough Rheumatoid Factor Complement C4 Miscellaneous Test Crossmatch 11/05/16 11/05/16 11/05/16 13:25 17:54 23:42 WBC RBC Hgb Hct MCV MCH MCHC RDW Plt Count Lymph % (Auto) [place] % (Auto) Lymph # [place] # Baso # Seg Neutrophils % Seg Neuts % (Manual) Lymphocytes % (Manual) Monocytes % (Manual) Eosinophils % (Manual) Basophils % (Manual) Nucleated RBC % Seg Neutrophils # Seg Neutrophils # Man Lymphocytes # (Manual) Monocytes # (Manual) Eosinophils # (Manual) PT INR Fibrinogen dRVVT Confirm Interp Factor V Activity POC ABG pH POC ABG pCO2 POC ABG pO2 Sodium Potassium Chloride Carbon Dioxide BUN Creatinine Glucose POC Glucose 114 H 134 H Lactic Acid Calcium Phosphorus Magnesium Direct Bilirubin AST ALT Alkaline Phosphatase Troponin T C-Reactive Protein Total Protein Albumin Prealbumin Triglycerides Cholesterol LDL Cholesterol Direct HDL Cholesterol Urine pH Urine WBC (Auto) Urine Creatinine Urine Total Protein Vancomycin Trough Rheumatoid Factor Complement C4 Miscellaneous Test Flexitest 1 H Crossmatch 11/06/16 11/06/16 11/06/16 04:56 06:25 06:25 WBC RBC 2.50 L Hgb 7.3 L Hct 22.5 L MCV MCH MCHC RDW 16.9 H Plt Count Lymph % (Auto) [place] % (Auto) 10.5 H Lymph # [place] # 1.1 H Baso # Seg Neutrophils % Seg Neuts % (Manual) Lymphocytes % (Manual) Monocytes % (Manual) Eosinophils % (Manual) Basophils % (Manual) Nucleated RBC % Seg Neutrophils # Seg Neutrophils # Man Lymphocytes # (Manual) Monocytes # (Manual) Eosinophils # (Manual) PT INR Fibrinogen dRVVT Confirm Interp Factor V Activity POC ABG pH POC ABG pCO2 POC ABG pO2 Sodium Potassium 5.1 H Chloride 95.9 L Carbon Dioxide BUN 52 H Creatinine 1.8 H Glucose 117 H POC Glucose 120 H Lactic Acid Calcium Phosphorus Magnesium Direct Bilirubin AST 103 H ALT 77 H Alkaline Phosphatase 285 H Troponin T C-Reactive Protein Total Protein 6.2 L Albumin 1.8 L Prealbumin 0.180 L Triglycerides Cholesterol LDL Cholesterol Direct HDL Cholesterol Urine pH Urine WBC (Auto) Urine Creatinine Urine Total Protein Vancomycin Trough Rheumatoid Factor Complement C4 Miscellaneous Test Crossmatch 11/06/16 11/06/16 11/06/16 11:56 17:14 23:52 WBC RBC Hgb Hct MCV MCH MCHC RDW Plt Count Lymph % (Auto) [place] % (Auto) Lymph # [place] # Baso # Seg Neutrophils % Seg Neuts % (Manual) Lymphocytes % (Manual) Monocytes % (Manual) Eosinophils % (Manual) Basophils % (Manual) Nucleated RBC % Seg Neutrophils # Seg Neutrophils # Man Lymphocytes # (Manual) Monocytes # (Manual) Eosinophils # (Manual) PT INR Fibrinogen dRVVT Confirm Interp Factor V Activity POC ABG pH POC ABG pCO2 POC ABG pO2 Sodium Potassium Chloride Carbon Dioxide BUN Creatinine Glucose POC Glucose 141 H 125 H 130 H Lactic Acid Calcium Phosphorus Magnesium Direct Bilirubin AST ALT Alkaline Phosphatase Troponin T C-Reactive Protein Total Protein Albumin Prealbumin Triglycerides Cholesterol LDL Cholesterol Direct HDL Cholesterol Urine pH Urine WBC (Auto) Urine Creatinine Urine Total Protein Vancomycin Trough Rheumatoid Factor Complement C4 Miscellaneous Test Crossmatch 11/07/16 11/07/16 11/07/16 06:30 06:30 09:37 WBC RBC 2.18 L Hgb 6.3 L Hct 19.7 L* MCV MCH MCHC RDW 16.8 H Plt Count Lymph % (Auto) [place] % (Auto) 10.0 H Lymph # [place] # 1.0 H Baso # Seg Neutrophils % Seg Neuts % (Manual) Lymphocytes % (Manual) Monocytes % (Manual) Eosinophils % (Manual) Basophils % (Manual) Nucleated RBC % Seg Neutrophils # Seg Neutrophils # Man Lymphocytes # (Manual) Monocytes # (Manual) Eosinophils # (Manual) PT INR Fibrinogen dRVVT Confirm Interp Factor V Activity POC ABG pH POC ABG pCO2 POC ABG pO2 Sodium 135 L Potassium Chloride 95.6 L Carbon Dioxide BUN 70 H Creatinine 2.0 H Glucose 126 H POC Glucose Lactic Acid Calcium Phosphorus Magnesium Direct Bilirubin AST ALT Alkaline Phosphatase Troponin T C-Reactive Protein Total Protein Albumin Prealbumin Triglycerides Cholesterol LDL Cholesterol Direct HDL Cholesterol Urine pH Urine WBC (Auto) Urine Creatinine Urine Total Protein Vancomycin Trough Rheumatoid Factor Complement C4 Miscellaneous Test Crossmatch See Detail 11/07/16 11/07/16 11/07/16 12:52 18:51 21:26 WBC RBC Hgb Hct MCV MCH MCHC RDW Plt Count Lymph % (Auto) [place] % (Auto) Lymph # [place] # Baso # Seg Neutrophils % Seg Neuts % (Manual) Lymphocytes % (Manual) Monocytes % (Manual) Eosinophils % (Manual) Basophils % (Manual) Nucleated RBC % Seg Neutrophils # Seg Neutrophils # Man Lymphocytes # (Manual) Monocytes # (Manual) Eosinophils # (Manual) PT INR Fibrinogen dRVVT Confirm Interp Factor V Activity POC ABG pH 7.523 H POC ABG pCO2 34.6 L POC ABG pO2 53 L Sodium Potassium Chloride Carbon Dioxide BUN Creatinine Glucose POC Glucose 142 H 155 H Lactic Acid Calcium Phosphorus Magnesium Direct Bilirubin AST ALT Alkaline Phosphatase Troponin T C-Reactive Protein Total Protein Albumin Prealbumin Triglycerides Cholesterol LDL Cholesterol Direct HDL Cholesterol Urine pH Urine WBC (Auto) Urine Creatinine Urine Total Protein Vancomycin Trough Rheumatoid Factor Complement C4 Miscellaneous Test Crossmatch 11/07/16 11/08/16 11/08/16 21:34 13:03 23:37 WBC RBC 2.63 L Hgb 7.7 L Hct 22.7 L MCV MCH MCHC RDW 17.0 H Plt Count Lymph % (Auto) [place] % (Auto) Lymph # [place] # Baso # Seg Neutrophils % Seg Neuts % (Manual) Lymphocytes % (Manual) Monocytes % (Manual) Eosinophils % (Manual) Basophils % (Manual) Nucleated RBC % Seg Neutrophils # Seg Neutrophils # Man Lymphocytes # (Manual) Monocytes # (Manual) Eosinophils # (Manual) PT INR Fibrinogen dRVVT Confirm Interp Factor V Activity POC ABG pH 7.478 H POC ABG pCO2 34.0 L POC ABG pO2 50 L Sodium Potassium Chloride Carbon Dioxide BUN Creatinine Glucose POC Glucose 113 H Lactic Acid Calcium Phosphorus Magnesium Direct Bilirubin AST ALT Alkaline Phosphatase Troponin T C-Reactive Protein Total Protein Albumin Prealbumin Triglycerides Cholesterol LDL Cholesterol Direct HDL Cholesterol Urine pH Urine WBC (Auto) Urine Creatinine Urine Total Protein Vancomycin Trough Rheumatoid Factor Complement C4 Miscellaneous Test Crossmatch 11/09/16 11/09/16 11/09/16 04:35 10:15 18:21 WBC RBC 2.68 L Hgb 7.8 L Hct 23.3 L MCV MCH MCHC RDW 17.0 H Plt Count Lymph % (Auto) [place] % (Auto) 12.1 H Lymph # [place] # 1.1 H Baso # Seg Neutrophils % Seg Neuts % (Manual) Lymphocytes % (Manual) Monocytes % (Manual) Eosinophils % (Manual) Basophils % (Manual) Nucleated RBC % Seg Neutrophils # Seg Neutrophils # Man Lymphocytes # (Manual) Monocytes # (Manual) Eosinophils # (Manual) PT INR Fibrinogen dRVVT Confirm Interp Factor V Activity POC ABG pH POC ABG pCO2 POC ABG pO2 Sodium Potassium Chloride Carbon Dioxide BUN 51 H Creatinine 1.8 H Glucose POC Glucose 60 L Lactic Acid Calcium 8.3 L Phosphorus Magnesium Direct Bilirubin AST ALT Alkaline Phosphatase Troponin T C-Reactive Protein Total Protein Albumin Prealbumin Triglycerides Cholesterol LDL Cholesterol Direct HDL Cholesterol Urine pH Urine WBC (Auto) Urine Creatinine Urine Total Protein Vancomycin Trough Rheumatoid Factor Complement C4 Miscellaneous Test Crossmatch 11/09/16 11/10/16 18:55 07:00 WBC RBC Hgb Hct MCV MCH MCHC RDW Plt Count Lymph % (Auto) [place] % (Auto) Lymph # [place] # Baso # Seg Neutrophils % Seg Neuts % (Manual) Lymphocytes % (Manual) Monocytes % (Manual) Eosinophils % (Manual) Basophils % (Manual) Nucleated RBC % Seg Neutrophils # Seg Neutrophils # Man Lymphocytes # (Manual) Monocytes # (Manual) Eosinophils # (Manual) PT INR Fibrinogen dRVVT Confirm Interp Factor V Activity POC ABG pH POC ABG pCO2 POC ABG pO2 Sodium Potassium 3.0 L D Chloride 97.4 L Carbon Dioxide BUN 28 H Creatinine 1.3 H Glucose POC Glucose 68 L Lactic Acid Calcium 7.8 L Phosphorus Magnesium Direct Bilirubin AST ALT Alkaline Phosphatase Troponin T C-Reactive Protein Total Protein Albumin Prealbumin Triglycerides Cholesterol LDL Cholesterol Direct HDL Cholesterol Urine pH Urine WBC (Auto) Urine Creatinine Urine Total Protein Vancomycin Trough Rheumatoid Factor Complement C4 Miscellaneous Test Crossmatch CT scan - chest: image reviewed Allied health notes reviewed: RT
[2016-11-10] MEDS ORDERED: CATHFLO IV ONE (14:00)
[2016-11-10] MEDS ORDERED: WATER FOR INJ (PF) 10 ML ONE (14:19)
[2016-11-10] MEDS: DURAGESIC TD SCH (14:31)
--- NOTE | 2016-11-10 15:07 | Progress Note ---
Assessment and Plan Patient continues to improve, albeit, slowly. Continue antibiotics for time being. No immediate plans for interventions at the moment. Subjective Patient Reports: Positive: other (Patient unresponsive and non verbal.) Objective Vital Signs - 12hr 11/10/16 11/10/16 11/10/16 04:00 04:01 04:54 Temperature 100.3 F H Pulse Rate 103 H 93 H 109 H Pulse Rate [ From Monitor] Respiratory 18 Rate Blood Pressure 130/77 O2 Sat by Pulse 99 99 99 Oximetry O2 Sat by Pulse Oximetry [ Assessment] 11/10/16 11/10/16 11/10/16 05:00 06:00 06:11 Temperature Pulse Rate 108 H 106 H 105 H Pulse Rate [ From Monitor] Respiratory 18 19 Rate Blood Pressure 182/99 176/97 176/97 O2 Sat by Pulse 100 100 Oximetry O2 Sat by Pulse Oximetry [ Assessment] 11/10/16 11/10/16 11/10/16 07:00 08:00 08:51 Temperature 100.1 F H Pulse Rate 86 88 Pulse Rate [ 88 From Monitor] Respiratory 17 18 Rate Blood Pressure 145/73 151/89 O2 Sat by Pulse 100 100 100 Oximetry O2 Sat by Pulse Oximetry [ Assessment] 11/10/16 11/10/16 11/10/16 09:00 09:15 09:19 Temperature Pulse Rate 103 H 89 Pulse Rate [ From Monitor] Respiratory 31 H Rate Blood Pressure 178/99 167/86 O2 Sat by Pulse 100 Oximetry O2 Sat by Pulse 98 Oximetry [ Assessment] 11/10/16 11/10/16 11/10/16 10:00 10:15 11:00 Temperature Pulse Rate 105 H 105 H 110 H Pulse Rate [ From Monitor] Respiratory 22 14 Rate Blood Pressure 197/104 197/104 156/81 O2 Sat by Pulse 100 98 Oximetry O2 Sat by Pulse Oximetry [ Assessment] 11/10/16 11/10/16 11/10/16 11:50 12:00 13:00 Temperature 99.4 F Pulse Rate 103 H 97 H 100 H Pulse Rate [ From Monitor] Respiratory 16 34 H Rate Blood Pressure 157/83 146/73 160/88 O2 Sat by Pulse 99 99 Oximetry O2 Sat by Pulse Oximetry [ Assessment] 11/10/16 14:01 Temperature Pulse Rate 105 H Pulse Rate [ From Monitor] Respiratory 15 Rate Blood Pressure 164/84 O2 Sat by Pulse 99 Oximetry O2 Sat by Pulse Oximetry [ Assessment] - General physical appearance well developed, well nourished, no distress, chronically ill, obese - Eyes other (Able to track movement and responds to verbal stimuli) - ENT other (Duboff tube in place) - Respiratory normal expansion, other (Coarse breath sounds) rales: bilateral - Abdomen soft, bowel sounds normal, not rebound, not guarding, not rigid, wound (are draining into colostomy bag, creamy consistency) - Genitourinary normal external genitalia - Rectum other (Deferred) - Integumentary no rash - Neurologic other (Non-responsive, not following comands.) - Labs 11/09/16 04:35 11/10/16 07:00 Diabetes panel 11/10/16 Range/Units 07:00 Sodium 137 (137-145) mmol/L Potassium 3.0 L D (3.6-5.0) mmol/L Chloride 97.4 L (98-107) mmol/L Carbon Dioxide 27 (22-30) mmol/L BUN 28 H (7-17) mg/dL Creatinine 1.3 H (0.7-1.2) mg/dL Glucose 89 (65-100) mg/dL Calcium 7.8 L (8.4-10.2) mg/dL Calcium panel 11/10/16 Range/Units 07:00 Calcium 7.8 L (8.4-10.2) mg/dL Pituitary panel 11/10/16 Range/Units 07:00 Sodium 137 (137-145) mmol/L Potassium 3.0 L D (3.6-5.0) mmol/L Chloride 97.4 L (98-107) mmol/L Carbon Dioxide 27 (22-30) mmol/L BUN 28 H (7-17) mg/dL Creatinine 1.3 H (0.7-1.2) mg/dL Glucose 89 (65-100) mg/dL Calcium 7.8 L (8.4-10.2) mg/dL Adrenal panel 11/10/16 Range/Units 07:00 Sodium 137 (137-145) mmol/L Potassium 3.0 L D (3.6-5.0) mmol/L Chloride 97.4 L (98-107) mmol/L Carbon Dioxide 27 (22-30) mmol/L BUN 28 H (7-17) mg/dL Creatinine 1.3 H (0.7-1.2) mg/dL Glucose 89 (65-100) mg/dL Calcium 7.8 L (8.4-10.2) mg/dL - Imaging CT scan - abdomen: report reviewed, image reviewed CT scan - pelvis: report reviewed, image reviewed (No evidence of abscess formation)
[2016-11-10] MEDS: IMODIUM PO SCH ×2 (15:51→23:05)
[2016-11-11] MEDS: HumuLIN R SUB-Q SCH ×4 (01:12→18:31)
[2016-11-11] MEDS: LOPRESSOR PO SCH ×3 (06:22→18:30)
[2016-11-11] MEDS: APRESOLINE IV PRN (06:36)
[2016-11-11] MEDS: D50W (25GM) Syringe IV PRN (06:36)
[2016-11-11] MEDS: IMODIUM PO SCH ×2 (06:42→10:22)
[2016-11-11 07:13] LABS: Basophils # (Auto) 0.1 K/mm3 (0.0-0.1); Basophils % (Auto) 0.8 % (0.0-1.8); Eosinophils # (Auto) 0.1 K/mm3 (0.0-0.4); Eosinophils % (Auto) 0.9 % (0.0-4.3); Hematocrit 24.4 % (30.3-42.9); Hemoglobin 8.1 gm/dl (10.1-14.3); Lymphocytes # (Auto) 2.1 K/mm3 (1.2-5.4); Lymphocytes % (Auto) 22.6 % (13.4-35.0); Mean Corpuscular HGB Conc 33 % (30-34); Mean Corpuscular Hemoglobin 29 pg (28-32); Mean Corpuscular Volume 87 fl (79-97); Monocytes % (Auto) 10.8 % (0.0-7.3); Platelet Count 273 K/mm3 (140-440); Red Blood Count 2.81 M/mm3 (3.65-5.03); Red Cell Distribution Width 16.4 % (13.2-15.2)
[2016-11-11 07:23] LABS: BUN/Creatinine Ratio 20.55; Calcium 8.5 mg/dL (8.4-10.2)
--- NOTE | 2016-11-11 08:22 | Progress Note ---
Assessment and Plan Assessment and plan: 46-year-old woman with a history of hypertension, diabetes, asthma, hyperlipidemia, chronic kidney disease and anxiety , who was brought in by family because, she couldn't get her words out, her face was also twisted, she was admitted for acute CVA and accelerated hypertension, she had a hx of poor adherence with her medications, and uncontrolled htn. Patient's blood pressure systolically on admission was noted be greater than 260. TPA was started but this was discontinued after 5 minutes because her blood pressure became uncontrolled. The TPA was not initiated again because the patient was outside the TPA window. Fever tmax 100.3. ID Physician was reconsulted. I discussed case with her. Patient now on Cefepime and vancomycin Spoke with Dr. Eli of infectious disease. chest x-ray, blood cultures were unremarkable, urine cx growing E cloacea, ID and sens to follow,. fup blood cultures, patient does have a PICC line and a vasc cath, this may be possible etiology of infection, may need to consider exchanging them -still having high fevers, continue cefepime and vancomycin, -Severe Sepsis with septic shock, recurrent. Patient with multiple episodes of sepsis. Initial episode due to presumed aspiration pneumonia and septic episode on 09/23 from candidemia then a third episode from peritonitis from gastric perforation from dislodged PEG , there was an abscess in the abdomen present at that time that was draining pus. +/-UTI. The latest episode was related to surgical site infection. Continue antibiotics per ID. Surgical wound infection/gram-negative sepsis/candidemia/peritonitis PEG has been removed Has already completed 14 days of abx and antifungals, ID input appreciated She will need to be on tube feeds through NG tube for a month, and then either a gastrostomy or jejunostomy tube replaced after her GI wounds have healed and infection is cleared -continue wound care to ostomy sites JUANITA, now ESRD Likely due to vasomotor nephropathy and ATN given sepsis Nephrology input appreciated, continue hemodialysis Acute CVA with infarct. sp TPA Continue neuro checks. Neurology input appreciated, CT shows continued evolution of left MCA infarct with slight mass effect and edema, and there is no hemorrhage - PRINCE showed hyperdynamic with ef of 75%, neither clot nor septal defect seen - MRA Brain shows near complete occlusion of M2 and M3 of the left MCA - Repeat CT scan done on 09/11, shows stable findings - carotid doppler negative - Echo shows preserved systolic function but does show some left ventricular diastolic dysfunction - continue asa and statin for secondary ppx Persistent vegetative state This patient's needs placement at either hospice or SNF -She was denied for LTACH Acute hypoxic respiratory failure requiring MV >96hrs Status post tracheostomy, continue to wean off vent, has been tolerating T piece Nosocomial acquired aspiration pneumonia/sepsis/UTI She had completed a course of antibiotics. Now on Cefepime and Vanco for fever Asthma/COPD exacerbation Now has trach Acute Toxic Metabolic encephalopathy. Multitifactorial, mostly secondary to evolution of CVA Hypertensive Emergency Continue current medications Paroxysmal atrial fibrillation with rapid ventricular rate, failed cardioversion Continue current medications, Not a candidate for anticoagulation secondary to anemia thrombocytopenia and massive CVA Hypokalemia/Hypomagnesemia/hypophosphatemia. Replete electrolytes as needed. Diabetes type 2. Continue sliding-scale regular insulin and Accu-Cheks. Hyperlipidemia. Continue statin Nutrition continue tube feeds Anemia requiring multiple transfusions/acute blood loss Has received total 13 units of PRBC this admission. Will continue to transfuse to keep Hemoglobin above 7 Case discussed with JAVIER Phelan. her POA is her Brother, Jam [phone] Dispo. Very poor prognosis. Plan for SNIF placement, she was ready denied by LTAC History Interval history: Patient has prolonged stay fever, still unresponsive Hospitalist Physical - Physical exam Narrative exam: Gen appearance: Trach, not in acute distress HEENT: Atraumatic Neck: Tracheostomy Lungs: Coarse breath sounds, no crackles or wheezes Heart :S1 and S2 irregular, no murmurs, rubs or gallop Abdomen: Soft, non tender, ostomy bags Extremities : bilateral edema, upper and lower ext Neuro:Unresponsive, Does not follow commands - Constitutional Vitals: Temp Pulse Resp BP Pulse Ox 97.9 F 92 H 18 189/107 100 11/11/16 08:00 11/11/16 06:36 11/11/16 06:00 11/11/16 06:36 11/11/16 06:00 General appearance: Present: no acute distress, obese, other (on vent, non- responsive) Results - Labs CBC & Chem 7: 11/11/16 06:59 11/11/16 06:59 Labs: Laboratory Last Values WBC 9.1 K/mm3 (4.5-11.0) 11/11/16 06:59 RBC 2.81 M/mm3 (3.65-5.03) L 11/11/16 06:59 Hgb 8.1 gm/dl (10.1-14.3) L 11/11/16 06:59 Hct 24.4 % (30.3-42.9) L 11/11/16 06:59 MCV 87 fl (79-97) 11/11/16 06:59 MCH 29 pg (28-32) 11/11/16 06:59 MCHC 33 % (30-34) 11/11/16 06:59 RDW 16.4 % (13.2-15.2) H 11/11/16 06:59 Plt Count 273 K/mm3 (140-440) 11/11/16 06:59 Lymph % (Auto) 22.6 % (13.4-35.0) 11/11/16 06:59 [place] % (Auto) 10.8 % (0.0-7.3) H 11/11/16 06:59 Eos % (Auto) 0.9 % (0.0-4.3) 11/11/16 06:59 Baso % (Auto) 0.8 % (0.0-1.8) 11/11/16 06:59 Lymph # 2.1 K/mm3 (1.2-5.4) 11/11/16 06:59 [place] # 1.0 K/mm3 (0.0-0.8) H 11/11/16 06:59 Eos # 0.1 K/mm3 (0.0-0.4) 11/11/16 06:59 Baso # 0.1 K/mm3 (0.0-0.1) 11/11/16 06:59 Add Manual Diff Complete 10/27/16 06:30 Total Counted 100 10/27/16 06:30 Seg Neutrophils % 64.9 % (40.0-70.0) 11/11/16 06:59 Seg Neuts % (Manual) 78.0 % (40.0-70.0) H 10/27/16 06:30 Band Neutrophils % 0 % 10/27/16 06:30 Lymphocytes % (Manual) 14.0 % (13.4-35.0) 10/27/16 06:30 Reactive Lymphs % (Man) 0 % 10/27/16 06:30 Monocytes % (Manual) 7.0 % (0.0-7.3) 10/27/16 06:30 Eosinophils % (Manual) 0 % (0.0-4.3) 10/27/16 06:30 Basophils % (Manual) 1.0 % (0.0-1.8) 10/27/16 06:30 Metamyelocytes % 0 % 10/27/16 06:30 Myelocytes % 0 % 10/27/16 06:30 Promyelocytes % 0 % 10/27/16 06:30 Blast Cells % 0 % 10/27/16 06:30 Nucleated RBC % 2.0 % (0.0-0.9) H 10/27/16 06:30 Seg Neutrophils # 5.9 K/mm3 (1.8-7.7) 11/11/16 06:59 Seg Neutrophils # Man 10.8 K/mm3 (1.8-7.7) H 10/27/16 06:30 Band Neutrophils # 0.0 K/mm3 10/27/16 06:30 Lymphocytes # (Manual) 1.9 K/mm3 (1.2-5.4) 10/27/16 06:30 Abs React Lymphs (Man) 0.0 K/mm3 10/27/16 06:30 Monocytes # (Manual) 1.0 K/mm3 (0.0-0.8) H 10/27/16 06:30 Eosinophils # (Manual) 0.0 K/mm3 (0.0-0.4) 10/27/16 06:30 Basophils # (Manual) 0.1 K/mm3 (0.0-0.1) 10/27/16 06:30 Metamyelocytes # 0.0 K/mm3 10/27/16 06:30 Myelocytes # 0.0 K/mm3 10/27/16 06:30 Promyelocytes # 0.0 K/mm3 10/27/16 06:30 Blast Cells # 0.0 K/mm3 10/27/16 06:30 Pathologist Review 09/13/16 04:00 WBC Morphology Not Reportable 10/27/16 06:30 Hypersegmented Neuts Not Reportable 10/27/16 06:30 Hyposegmented Neuts Not Reportable 10/27/16 06:30 Hypogranular Neuts Not Reportable 10/27/16 06:30 Smudge Cells Not Reportable 10/27/16 06:30 Toxic Granulation Not Reportable 10/27/16 06:30 Toxic Vacuolation Not Reportable 10/27/16 06:30 Dohle Bodies Not Reportable 10/27/16 06:30 Pelger-Huet Anomaly Not Reportable 10/27/16 06:30 Jasmina Rods Not Reportable 10/27/16 06:30 Platelet Estimate Cons 10/27/16 06:30 Clumped Platelets Not Reportable 10/27/16 06:30 Plt Clumps, EDTA Not Reportable 10/27/16 06:30 Large Platelets Few 10/27/16 06:30 Giant Platelets Not Reportable 10/27/16 06:30 Platelet Satelliting Not Reportable 10/27/16 06:30 Plt Morphology Comment Not Reportable 10/27/16 06:30 RBC Morphology Not Reportable 10/27/16 06:30 Dimorphic RBCs Not Reportable 10/27/16 06:30 Polychromasia Not Reportable 10/27/16 06:30 Hypochromasia Not Reportable 10/27/16 06:30 Poikilocytosis Not Reportable 10/27/16 06:30 Anisocytosis 1+ 10/27/16 06:30 Microcytosis Not Reportable 10/27/16 06:30 Macrocytosis Not Reportable 10/27/16 06:30 Spherocytes Not Reportable 10/27/16 06:30 Pappenheimer Bodies Not Reportable 10/27/16 06:30 Sickle Cells Not Reportable 10/27/16 06:30 Target Cells Not Reportable 10/27/16 06:30 Tear Drop Cells Not Reportable 10/27/16 06:30 Ovalocytes Not Reportable 10/27/16 06:30 Stomatocytes Few 10/06/16 03:50 Helmet Cells Not Reportable 10/27/16 06:30 Monet-Westley Bodies Not Reportable 10/27/16 06:30 Frederick Rings Not Reportable 10/27/16 06:30 Isabella Cells Not Reportable 10/27/16 06:30 Bite Cells Not Reportable 10/27/16 06:30 Crenated Cell Not Reportable 10/27/16 06:30 Elliptocytes Not Reportable 10/27/16 06:30 Acanthocytes (Spur) Not Reportable 10/27/16 06:30 Rouleaux Not Reportable 10/27/16 06:30 Hemoglobin C Crystals Not Reportable 10/27/16 06:30 Schistocytes Not Reportable 10/27/16 06:30 Malaria parasites Not Reportable 10/27/16 06:30 ESR > 140.0 mm/Hr (0-20) 09/08/16 11:48 Jun Bodies Not Reportable 10/27/16 06:30 Hem Pathologist Commnt No 10/27/16 06:30 PT 19.0 Sec. (12.2-14.9) H 10/09/16 03:45 INR 1.51 (0.87-1.13) H 10/09/16 03:45 APTT 33.0 Sec. (24.2-36.6) 10/09/16 03:45 Thrombin Time 16.8 Sec. (15.1-19.6) 09/03/16 00:10 Fibrinogen 750 mg/dl (211-480) H 09/08/16 11:48 Lupus Anticoagulant see below 09/12/16 09:59 LA PTT Baseline See scanned report 09/12/16 09:59 dRVVT Confirm Interp Positive (Negative) H 09/12/16 09:59 dRVVT Screen 50:50 See scanned report 09/12/16 09:59 dRVVT Mix Interpret See scanned report 09/12/16 09:59 Protein C Antigen 122 % (70-140) 09/08/16 15:35 Free Protein S 97 % normal (50-147) 09/08/16 15:35 Total Protein S 109 % (70-140) 09/08/16 15:35 Antithrombin III Ag 100 % (80-120) 09/08/16 15:35 Heparin Anti-Xa, Unfract Negative (Negative) 09/29/16 13:35 Factor V Activity 182 % (65-150) H 09/08/16 15:35 POC ABG pH 7.478 (7.35-7.45) H 11/08/16 23:37 POC ABG pCO2 34.0 (35-45) L 11/08/16 23:37 POC ABG pO2 50 (80-105) L 11/08/16 23:37 POC ABG HCO3 25.2 11/08/16 23:37 POC ABG Total CO2 26 11/08/16 23:37 POC ABG O2 Sat 88 11/08/16 23:37 POC ABG Base Excess 2 11/08/16 23:37 FiO2 28 % 11/08/16 23:37 Sodium 136 mmol/L (137-145) L 11/11/16 06:59 Potassium 3.7 mmol/L (3.6-5.0) D 11/11/16 06:59 Chloride 96.1 mmol/L (98-107) L 11/11/16 06:59 Carbon Dioxide 26 mmol/L (22-30) 11/11/16 06:59 Anion Gap 18 mmol/L 11/11/16 06:59 BUN 37 mg/dL (7-17) H 11/11/16 06:59 Creatinine 1.8 mg/dL (0.7-1.2) H 11/11/16 06:59 Estimated GFR 37 ml/min 11/11/16 06:59 BUN/Creatinine Ratio 20.55 % 11/11/16 06:59 Glucose 79 mg/dL (65-100) 11/11/16 06:59 POC Glucose 75 (70-105) 11/11/16 04:55 Osmolality 351 Mosm/kg 09/16/16 11:47 Lactic Acid 4.50 mmol/L (0.7-2.0) H* 09/28/16 07:25 Calcium 8.5 mg/dL (8.4-10.2) 11/11/16 06:59 Phosphorus 4.40 mg/dL (2.5-4.5) 11/07/16 06:30 Magnesium 2.20 mg/dL (1.7-2.3) 11/07/16 06:30 Total Bilirubin 0.20 mg/dL (0.1-1.2) 11/06/16 06:25 Direct Bilirubin 0.3 mg/dL (0-0.2) H 10/10/16 05:00 Indirect Bilirubin 0.1 mg/dL 10/10/16 05:00 AST 103 units/L (5-40) H 11/06/16 06:25 ALT 77 units/L (7-56) H 11/06/16 06:25 Alkaline Phosphatase 285 units/L (35-129) H 11/06/16 06:25 Ammonia 27.0 umol/L (25-60) 09/07/16 08:37 Lactate Dehydrogenase 196 units/L (91-180) H 11/11/16 06:59 Total Creatine Kinase 121 units/L (30-135) 09/29/16 20:12 CK-MB (CK-2) < 1.0 ng/mL (0.0-4.0) 09/29/16 20:12 CK-MB (CK-2) Rel Index 0.8 (0-4) 09/29/16 20:12 Troponin T 0.204 ng/mL (0.00-0.029) H* 09/29/16 20:12 C-Reactive Protein 11.40 mg/dL (0.00-1.30) H 11/05/16 13:25 Total Protein 6.1 g/dL (6.3-8.2) L 11/11/16 06:59 Albumin 1.8 g/dL (3.9-5) L 11/06/16 06:25 Albumin/Globulin Ratio 0.4 % 11/06/16 06:25 Prealbumin 0.180 g/L (0.200-0.400) L 11/06/16 06:25 Triglycerides 137 mg/dL (2-149) 09/29/16 20:12 Cholesterol 31 mg/dL (50-199) L 09/29/16 20:12 LDL Cholesterol Direct 4 mg/dL (50-130) L 09/29/16 20:12 HDL Cholesterol 3 mg/dL (40-59) L 09/29/16 20:12 Cholesterol/HDL Ratio 10.33 % 09/29/16 20:12 Angiotensin Convert Enz See scanned report 09/08/16 11:48 Renin 0.99 ng/mL/h (0.25-5.82) 10/07/16 10:56 Aldosterone <1 ng/dL () 10/07/16 10:56 Aldosterone/Renin Dir see below 10/07/16 10:56 Serotonin Release Assay See scanned report 09/29/16 13:35 TSH 1.010 mlU/mL (0.270-4.200) 09/07/16 08:37 HCG, Qual Negative (Negative) 09/03/16 00:10 Urine Color Yellow (Yellow) 11/05/16 13:09 Urine Turbidity Clear (Clear) 11/05/16 13:09 Urine pH 9.0 (5.0-7.0) H 11/05/16 13:09 Ur Specific [place] 1.011 (1.003-1.030) 11/05/16 13:09 Urine Protein 100 mg/dl mg/dL (Negative) 11/05/16 13:09 Urine Glucose (UA) Neg mg/dL (Negative) 11/05/16 13:09 Urine Ketones Neg mg/dL (Negative) 11/05/16 13:09 Urine Blood Neg (Negative) 11/05/16 13:09 Urine Nitrite Neg (Negative) 11/05/16 13:09 Urine Bilirubin Neg (Negative) 11/05/16 13:09 Urine Urobilinogen < 2.0 mg/dL (<2.0) 11/05/16 13:09 Ur Leukocyte Esterase Neg (Negative) 11/05/16 13:09 Urine WBC (Auto) 4.0 /HPF (0.0-6.0) 11/05/16 13:09 Urine RBC (Auto) 1.0 /HPF (0.0-6.0) 11/05/16 13:09 U Epithel Cells (Auto) 1.0 /HPF (0-13.0) 10/07/16 18:30 Urine Bacteria (Auto) 4+ /HPF (Negative) 11/05/16 13:09 Urine WBC Clumps 2+ /HPF 09/07/16 02:47 Hyaline Casts 4 /LPF 09/07/16 02:47 Urine Mucus Few /HPF 10/07/16 18:30 Urine Yeast (Budding) 3+ /HPF 10/07/16 18:30 Urine Eosinophils None seen (None Seen) 09/07/16 16:00 Urine Total Volume TNR 10/29/16 07:45 Urine Creatinine TNR 10/29/16 07:45 Height (in) TNR 10/29/16 07:45 Weight (lb) TNR 10/29/16 07:45 Creatinine Clearance TNR 10/29/16 07:45 Urine Sodium 36 mEq/L 09/16/16 19:19 Urine Total Protein 16 mg/dL (5-11.8) H 09/16/16 19:19 Vancomycin Trough 2.3 ug/mL (5.0-20.0) L 09/21/16 13:00 Random Vancomycin 17.0 ug/mL (0-40.0) 10/20/16 06:00 Urine Opiates Screen Presumptive negative 09/03/16 15:11 Urine Methadone Screen Presumptive positive 09/03/16 15:11 Ur Barbiturates Screen Presumptive positive 09/03/16 15:11 Ur Phencyclidine Scrn Presumptive negative 09/03/16 15:11 Ur Amphetamines Screen Presumptive negative 09/03/16 15:11 U Benzodiazepines Scrn Presumptive negative 09/03/16 15:11 Urine Cocaine Screen Presumptive negative 09/03/16 15:11 U Marijuana (THC) Screen Presumptive positive 09/03/16 15:11 Drugs of Abuse Note Disclamer 09/03/16 15:11 Rheumatoid Factor 24 IU/ml (0-13) H 09/08/16 11:48 SAHIL Screen Negative (Negative) 09/07/16 09:20 Proteinase 3 (PR3) Ab <1.0 AI (<1.0) 09/07/16 09:20 Myeloperoxidase Ab <1.0 AI (<1.0) 09/07/16 09:20 Sjogren's Antibody <1.0 AI (<1.0) 09/08/16 15:35 Scl-70 Scleroderma Ab <1.0 AI (<1.0) 09/08/16 15:35 Centromere B Antibody <1.0 AI (<1.0) 09/08/16 12:02 Heparin-induced Plt Ab Negative (Negative) 09/29/16 13:35 UF Heparin High Dose 11 % Release 09/29/16 13:35 SUDHIR UFH Low Dose 0.1 6 % Release 09/29/16 13:35 SUDHIR UFH Low Dose 0.5 8 % Release 09/29/16 13:35 Cardiolipid IgG Ab <14 GPL (<=14) 09/12/16 09:59 Cardiolipid IgA Ab <11 APL (<=11) 09/12/16 09:59 Cardiolipid IgM Ab <12 MPL (<=12) 09/12/16 09:59 Complement C3 148 mg/dL (90-180) 09/07/16 09:20 Complement C4 58 mg/dL (16-47) H 09/07/16 09:20 RPR Nonreactive (Nonreactive) 09/08/16 11:48 Hepatitis A IgM Ab Non-reactive (NonReactive) 09/24/16 14:40 Hep Bs Antigen Non-reactive (Negative) 09/24/16 14:40 Hep B Core IgM Ab Non-reactive (NonReactive) 09/24/16 14:40 Hepatitis C Antibody Non-reactive (NonReactive) 09/24/16 14:40 HIV 1&2 Antibody Rapid Non react (Non React) 09/08/16 11:48 HIV P24 Antigen Non react (Non React) 09/08/16 11:48 Miscellaneous Test Flexitest 1 H 11/05/16 13:25 Blood Type A POSITIVE 11/07/16 09:37 Antibody Screen Negative 11/07/16 09:37 DELORIS Antibody Screen Negative 09/25/16 10:30 Crossmatch See Detail 11/07/16 09:37
[2016-11-11] MEDS: QUESTRAN PO SCH (10:21)
[2016-11-11] MEDS: MAXIPIME/NS 2 GM/100 ML 2 GM/100 ML BAG IV SCH (10:21)
[2016-11-11] MEDS: COZAAR PO SCH (10:22)
[2016-11-11] MEDS: PROTONIX FEEDTUBE SCH (10:22)
[2016-11-11 10:25] LABS: INR 1.18 (0.87-1.13)
--- NOTE | 2016-11-11 10:40 | Progress Note ---
Assessment and Plan Assessment * Oliguric acute kidney injury secondary to ATN on CKD - baseline SCr 1.7mg/dL * Sepsis * s/p Candidemia * s/p GI bleed * Acute CVA - left MCA with midline shift * Acute hypoxic respiratory failure * Left renal artery stenosis * Metabolic acidosis - improved * Anemia * Hyponatremia - multifactorial Plan: * Hold hemodialysis today - UOP 250ml over past 4 hours * Pressors prn MAP>65 * Rate control per cardiology * Abx/antifungal per ID * Surgery recommendations noted * Vent management per critical care * Dose medications for renal function * Avoid potential nephrotoxins Subjective Date of service: 11/11/16 Principal diagnosis: Acute resp failure on MVS; S/P Acute CVA; Acute Encephalopathy; JUANITA Interval history: No acute events overnight. Objective - Vital Signs Vital signs: Vital Signs - 12hr 11/10/16 11/10/16 11/10/16 23:00 23:04 23:32 Temperature 98.9 F Pulse Rate 107 H 113 H Respiratory 12 Rate Blood Pressure 152/95 152/95 O2 Sat by Pulse 98 Oximetry 11/11/16 11/11/16 11/11/16 00:00 01:00 02:00 Temperature Pulse Rate 85 85 94 H Respiratory 16 17 16 Rate Blood Pressure 138/85 138/85 140/92 O2 Sat by Pulse 97 100 Oximetry 11/11/16 11/11/16 11/11/16 03:00 04:00 05:01 Temperature 99.6 F Pulse Rate 100 H 99 H 107 H Respiratory 11 L 15 18 Rate Blood Pressure 186/111 176/102 149/89 O2 Sat by Pulse 100 Oximetry 11/11/16 11/11/16 11/11/16 05:39 06:00 06:22 Temperature Pulse Rate 89 102 H 103 H Respiratory 18 Rate Blood Pressure 177/104 196/105 203/106 O2 Sat by Pulse 98 100 Oximetry 11/11/16 11/11/16 11/11/16 06:36 07:01 08:00 Temperature 97.9 F Pulse Rate 92 H 85 82 Respiratory 17 16 Rate Blood Pressure 189/107 155/81 144/79 O2 Sat by Pulse 98 98 Oximetry 11/11/16 10:22 Temperature Pulse Rate 85 Respiratory Rate Blood Pressure 148/73 O2 Sat by Pulse Oximetry - General Appearance General appearance: well-developed EENT: ATNC Neck: other (trach) Respiratory: Present: Other (coarse BS bilaterally) Cardiology: regular, S1S2 Gastrointestinal: hypoactive bowel sounds, no distended Musculoskeletal: other (no MARY) - Lab 11/11/16 06:59 11/11/16 06:59 Most recent lab results Calcium 8.5 mg/dL (8.4-10.2) 11/11/16 06:59 Phosphorus 4.40 mg/dL (2.5-4.5) 11/07/16 06:30 Magnesium 2.20 mg/dL (1.7-2.3) 11/07/16 06:30 Urine Creatinine TNR 10/29/16 07:45 Urine Sodium 36 mEq/L 09/16/16 19:19 Urine Total Protein 16 mg/dL (5-11.8) H 09/16/16 19:19
--- NOTE | 2016-11-11 11:49 | Progress Note ---
Assessment and Plan Assessment: 1) Recurrent Sepsis: new episode ? unclear source ? line infection ? persistent abd wound output ? fistula -S/p multiple episodes of sepsis - initially due to presumed aspiration pneumonia, then septic episode on 09/23 from Candidemia. Then from - peritonitis from gastric perforation +/- UTI. Latest episode was due to abdominal wall abscess at surgical site. -CRP 19 --> 22 -->11 -Procalcitonin=24 --> 16 --> 4.3 --> 1.8 on 10/05 -Vascath tip + Coag neg Staph, GNR - removed -repeat CT no abscess. Reviewed CT with radiologist NO fistula bue a 2x2cm abdominal wall collection. Same area previously grew Pseudomonas MDR sens to cefepime -recent respiratory specimen + MDR Pseudomonas-likely a colonizer -Urine grew VRE with negative UA-likely a colonizer 2) History of Peritonitis: from gastric perforation from dislodged PEG with significant ascites -S/P exlap, repair of gastric perforation with wedge gastrectomy, abdominal washout, drain placement on 10/05. 3) History of Candidemia: -Blood cultures positive for Silvia albicans on 09/23 -Blood cultures positive on 09/25 -Blood cultures negative on 09/30 -PICC line changed on 10/03 -Source ? gastric perf (PEG placed on 09/20) +/- TPN +/- central lines -TTE 10/07 no vegetations -PICC exchanged on 10/03 -fully treated with micafungin for 14 days last day 10/13 4) History CA-UTI s/p gutierrez exchanged 5) Diarrhea - ? etiology ? antibiotic-induced, not better 6) Initial presumed aspiration pneumonia 7) Respiratory failure s/p trach 8) Recent CVA-left MCA CVA 9) Uncontrolled HTN 10) Acute on CKD 11) Extensive back skin peeling ? burn from gastric secretions. Doubt allergic reaction - resolved 12) Severe anemia; ? from GI bleed 13) Recent abdominal wall abscess at surgical site-treated Plan: -continue cefepime and vancomycin - day 5 of 7 -monitor fever -overall prognosis guarded, patient at high risk for nosocomial infections I will be available over the phone on Monday and will see her back on Monday Thank you Dr Pierre for your consultation, will follow up with you. Pauline Carias MD Infectious Diseases Specialist [facility] ([facility]) M [phone] O [phone] Subjective Date of service: 11/11/16 Principal diagnosis: Acute resp failure on MVS; S/P Acute CVA; Acute Encephalopathy; JUANITA Interval history: Interval history: No fever last 24h. remains on the vent Microbiology: Blood cultures: 09/13 neg 8/ Silvia albicans 09/25 Silvia 09/29 neg 10/07 neg 11/05 neg 11/07 ngtd Urine cultures: 09/10 neg 09/13 neg 8/4 10-100K mixed species 10/07 neg 11/05 mixed bacteria Respiratory cultures: 09/07 neg 09/13 neg / neg 11/07 MDR Pseudomonas Wound cultures: 10/17 abd wall wound purulence + Pseudomonas MDR Stool cultures: cath tip 11/07 + [employer]NA[employer] Current Antimicrobials: levaquin 11/05 vancomyin 11/07 Previous Antimicrobials: Zosyn 10/07 Vancomycin PO 10/01 Metronidazole 09/25 Micafungin 09/27-10/13 Meropenem 10/10 Vanco 10/17 zosyn 10/21 fluconazole 10/19 cefepime 10/29 Objective - Exam Narrative Exam: General appearance: somnolent, non verbal, on the vent via trach no following commands Eyes: anicteric sclera, moist conjunctivae; PERRLA HENT: Atraumatic; oropharynx limited; Normal external ears. +NGT with greenish secretion Neck: +trach in place; supple, no thyromegaly or lymphadenopathy Lungs: CTA CV: tachycardic Abdomen: Soft, non-tender, +old PEG site no drainage. +iliostomy. Right sided Surgical site x 2 with ostomy bag draining thick yellowish secretion Extremities: +peripheral edema no extremity lymphadenopathy Skin: sacral area wounds superficial no purulence Psych: somnolent . Neuro: alert non verbal on the vent. Lines: left arm PICC placed on 10/03 - Constitutional Vitals: Vital Signs Temp Pulse Resp BP Pulse Ox 97.9 F 105 H 26 H 192/105 100 11/11/16 08:00 11/11/16 11:00 11/11/16 11:00 11/11/16 11:00 11/11/16 11:00 Temperature -Last 24 Hours Temperature 97.9 F Temperature 99.6 F Temperature 98.9 F Temperature 100.3 F Temperature 99.0 F Temperature 99.4 F - Labs CBC & Chem 7: 11/11/16 06:59 11/11/16 06:59 Labs: Abnormal lab results 11/10/16 11/11/16 11/11/16 Range/Units 11:51 06:59 06:59 RBC 2.81 L (3.65-5.03) M/mm3 Hgb 8.1 L (10.1-14.3) gm/dl Hct 24.4 L (30.3-42.9) % RDW 16.4 H (13.2-15.2) % [place] % (Auto) 10.8 H (0.0-7.3) % [place] # 1.0 H (0.0-0.8) K/mm3 INR (0.87-1.13) Sodium (137-145) mmol/L Chloride (98-107) mmol/L BUN (7-17) mg/dL Creatinine (0.7-1.2) mg/dL POC Glucose 120 H (70-105) Lactate Dehydrogenase 196 H (91-180) units/L Total Protein 6.1 L (6.3-8.2) g/dL 11/11/16 11/11/16 Range/Units 06:59 09:50 RBC (3.65-5.03) M/mm3 Hgb (10.1-14.3) gm/dl Hct (30.3-42.9) % RDW (13.2-15.2) % [place] % (Auto) (0.0-7.3) % [place] # (0.0-0.8) K/mm3 INR 1.18 H (0.87-1.13) Sodium 136 L (137-145) mmol/L Chloride 96.1 L (98-107) mmol/L BUN 37 H (7-17) mg/dL Creatinine 1.8 H (0.7-1.2) mg/dL POC Glucose (70-105) Lactate Dehydrogenase (91-180) units/L Total Protein (6.3-8.2) g/dL
--- NOTE | 2016-11-11 12:39 | Progress Note ---
Assessment and Plan (1) Acute respiratory failure with hypoxia Current Visit: Yes Status: Acute Plan to address problem: - continue aspiration precautions - continue to wean oxygen for MAP > 94% - continue bronchodilators and pulmonary toilet - s/p tracheostomy - continue scopolamine - ABG's prn at this point for increased work of breathing or other resp distress - will send for right thoracentesis re: moderate effusion with the hope that it aids RTC t-piece tolerance - follow thoracentesis studies - continue t-piece trials and shoot for RTC if tolerates especially post thoracentesis (2) Acute CVA (cerebrovascular accident) Current Visit: Yes Status: Acute Plan to address problem: - Left MCA teritory stroke - seen by neurology and prognosis for recovery of mental status guarded to poor - optimizing secondary prevention modalities now (BP, lipid anti-platelet therapy) - off systemic steroids now (started earlier for edema) - clinically mild improvement (3) Hypertensive emergency Current Visit: Yes Status: Acute Plan to address problem: - continue antihypertensives (on metoprolol, clonidine and cozaar) - use prn hydralazine - resume sedation while on MVS (4) Obesity (BMI 35.0-39.9 without comorbidity) Current Visit: Yes Status: Chronic Plan to address problem: - now at goal rate on tube feeding - stopped TPN (5) Type 2 diabetes mellitus Current Visit: Yes Status: Chronic Qualifiers: Diabetes mellitus complication status: D Diabetes mellitus complication detail: D Diabetic retinopathy severity: D Proliferative retinopathy type: P Diabetes mellitus macular edema: D Diabetes mellitus residential insulin use : D Laterality: L Chronic kidney disease stage: C Plan to address problem: - continue SSI - discontinued lantus prior re: hypoglycemia - target BG's <180 mg/dl (6) Leukocytosis (leucocytosis) Current Visit: Yes Status: Acute Qualifiers: Leukocytosis type: leukemoid reaction Qualified Code(s): D72.823 - Leukemoid reaction Plan to address problem: - improving - see sepsis section below (7) Agitation Current Visit: Yes Status: Acute Plan to address problem: - prn sedation / analgesia - tapered off seroquel for now (8) Atrial fibrillation Current Visit: Yes Status: Acute Qualifiers: Atrial fibrillation type: A Plan to address problem: - off amiodarone - continue p.o. metoprolol scheduled at 50mg q6h and adjust as necessary (9) JUANITA (acute kidney injury) Current Visit: Yes Status: Acute Plan to address problem: - on Dialysis now - continue HD/UF per nephrology recommendations - s/p tunnelled vas-cath - HD/UF - (10) Pyrexia of unknown origin Current Visit: Yes Status: Acute Plan to address problem: - dopplers negative for DVT - continue to treat with Anti-infectives (11) Severe sepsis Current Visit: Yes Status: Acute Plan to address problem: - resume vasopressors for MAP < 60mmHg not responsive to volume - continue anti-infectives per ID recs - VRE in urine noted; ? colonizer at this point - continue contact precautions - PSAR noted on trach aspirate from 11/07/16 (? Colonizer) - catheter tip however with >15CFU GNR growing now and may well be same organism (await ID- if that's the case however she is on appropriate AB's therapy) (12) Emesis Current Visit: Yes Status: Acute Qualifiers: Vomiting type: V Vomiting Intractability: V Nausea presence: N Plan to address problem: - s/p surgical repair of gastric perforation - continue TPN for now - follow surgery recommendations re: feeding and new PEG tube - now tolerating tube feeds at goal rate (13) Dysphagia, oropharyngeal Current Visit: Yes Status: Acute Plan to address problem: - discussed with surgeon and she will be best served with continued treatment with anti-infectives as well as time for the GI tract and her wounds to heal before replacing the PEG tube - continue DHT feeding (14) Discharge planning issues Current Visit: Yes Status: Acute Plan to address problem: - she remains critically ill on life sustaining interventions including MVS and at risk for further acute deterioration including - if can stay off MVS then can transfer to medical floor shortly .....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 Subjective Date of service: 11/11/16 Principal diagnosis: Acute resp failure on MVS; S/P Acute CVA; Acute Encephalopathy; JUANITA Interval history: Seen and examined at bedside; 24 hour events reviewed; nursing and respiratory care staff consulted; no adverse overnight events reported to me; resting peacefully in bed; on T-piece and tolerating well so far; awaiting thoracentesis once able to get consent; fever curve appears to be trending down Objective Vital Signs - 12hr 11/11/16 11/11/16 11/11/16 01:00 02:00 03:00 Temperature Pulse Rate 85 94 H 100 H Respiratory 17 16 11 L Rate Blood Pressure 138/85 140/92 186/111 O2 Sat by Pulse 100 Oximetry 11/11/16 11/11/16 11/11/16 04:00 05:01 05:39 Temperature 99.6 F Pulse Rate 99 H 107 H 89 Respiratory 15 18 Rate Blood Pressure 176/102 149/89 177/104 O2 Sat by Pulse 100 98 Oximetry 11/11/16 11/11/16 11/11/16 06:00 06:22 06:36 Temperature Pulse Rate 102 H 103 H 92 H Respiratory 18 Rate Blood Pressure 196/105 203/106 189/107 O2 Sat by Pulse 100 Oximetry 11/11/16 11/11/16 11/11/16 07:01 08:00 09:00 Temperature 97.9 F Pulse Rate 85 82 94 H Respiratory 17 16 23 Rate Blood Pressure 155/81 144/79 181/100 O2 Sat by Pulse 98 98 100 Oximetry 11/11/16 11/11/16 11/11/16 10:00 10:22 11:00 Temperature Pulse Rate 94 H 85 105 H Respiratory 20 26 H Rate Blood Pressure 184/100 148/73 192/105 O2 Sat by Pulse 100 100 Oximetry Constitutional: no acute distress, other (eyes open; tracking movements) Eyes: non-icteric, other (tracheostomy tube in midline of neck) ENT: oropharynx moist Neck: supple, no lymphadenopathy Effort: mildly labored Ascultation: Bilateral: diminished breath sounds (bases), rhonchi Cardiovascular: regular rate and rhythm Gastrointestinal: hypoactive bowel sounds, soft, non-tender, non-distended, other (RLQ stomas with colostomy bags) Integumentary: other (healing back burn-like injury) Extremities: no cyanosis, no edema, pulses normal, no ischemia or petechiae Neurologic: pupils equal and round, other (sedated) Psychiatric: other (unable to assess) CBC and BMP: 11/11/16 06:59 11/11/16 06:59 ABG, PT/INR, D-dimer: ABG POC ABG pH 7.478 (7.35-7.45) H 11/08/16 23:37 POC ABG pCO2 34.0 (35-45) L 11/08/16 23:37 POC ABG pO2 50 (80-105) L 11/08/16 23:37 POC ABG HCO3 25.2 11/08/16 23:37 POC ABG Total CO2 26 11/08/16 23:37 POC ABG O2 Sat 88 11/08/16 23:37 PT/INR, D-dimer PT 14.9 Sec. (12.2-14.9) 11/11/16 09:50 INR 1.18 (0.87-1.13) H 11/11/16 09:50 Abnormal lab findings: Abnormal Labs 09/03/16 09/03/16 09/03/16 12:12 15:07 16:20 WBC RBC Hgb Hct MCV MCH MCHC RDW Plt Count Lymph % (Auto) Oliver % (Auto) Lymph # Oliver # Baso # Seg Neutrophils % Seg Neuts % (Manual) Lymphocytes % (Manual) Monocytes % (Manual) Eosinophils % (Manual) Basophils % (Manual) Nucleated RBC % Seg Neutrophils # Seg Neutrophils # Man Lymphocytes # (Manual) Monocytes # (Manual) Eosinophils # (Manual) PT INR Fibrinogen dRVVT Confirm Interp Factor V Activity POC ABG pH 7.452 H POC ABG pCO2 POC ABG pO2 Sodium Potassium Chloride Carbon Dioxide BUN Creatinine Glucose POC Glucose 178 H Lactic Acid Calcium Phosphorus 2.20 L Magnesium 1.60 L Direct Bilirubin AST ALT Alkaline Phosphatase Lactate Dehydrogenase Troponin T C-Reactive Protein Total Protein Albumin Prealbumin Triglycerides Cholesterol LDL Cholesterol Direct HDL Cholesterol Urine pH Urine WBC (Auto) Urine Creatinine Urine Total Protein Vancomycin Trough Rheumatoid Factor Complement C4 Miscellaneous Test Crossmatch 09/03/16 09/03/16 09/03/16 17:57 17:58 23:50 WBC RBC Hgb Hct MCV MCH MCHC RDW Plt Count Lymph % (Auto) Oliver % (Auto) Lymph # Oliver # Baso # Seg Neutrophils % Seg Neuts % (Manual) Lymphocytes % (Manual) Monocytes % (Manual) Eosinophils % (Manual) Basophils % (Manual) Nucleated RBC % Seg Neutrophils # Seg Neutrophils # Man Lymphocytes # (Manual) Monocytes # (Manual) Eosinophils # (Manual) PT INR Fibrinogen dRVVT Confirm Interp Factor V Activity POC ABG pH POC ABG pCO2 POC ABG pO2 Sodium Potassium Chloride Carbon Dioxide BUN Creatinine Glucose POC Glucose 162 H 145 H Lactic Acid Calcium Phosphorus 2.30 L Magnesium Direct Bilirubin AST ALT Alkaline Phosphatase Lactate Dehydrogenase Troponin T C-Reactive Protein Total Protein Albumin Prealbumin Triglycerides Cholesterol LDL Cholesterol Direct HDL Cholesterol Urine pH Urine WBC (Auto) Urine Creatinine Urine Total Protein Vancomycin Trough Rheumatoid Factor Complement C4 Miscellaneous Test Crossmatch 09/04/16 09/04/16 09/04/16 03:31 03:31 05:42 WBC RBC Hgb 9.7 L D Hct MCV 72 L MCH 23 L MCHC RDW 17.5 H Plt Count Lymph % (Auto) 11.1 L Oliver % (Auto) Lymph # Oliver # Baso # Seg Neutrophils % 84.3 H Seg Neuts % (Manual) Lymphocytes % (Manual) Monocytes % (Manual) Eosinophils % (Manual) Basophils % (Manual) Nucleated RBC % Seg Neutrophils # 8.9 H Seg Neutrophils # Man Lymphocytes # (Manual) Monocytes # (Manual) Eosinophils # (Manual) PT INR Fibrinogen dRVVT Confirm Interp Factor V Activity POC ABG pH POC ABG pCO2 POC ABG pO2 Sodium 135 L Potassium 2.9 L* Chloride 97.2 L Carbon Dioxide 19 L BUN Creatinine 1.7 H Glucose 170 H POC Glucose 152 H Lactic Acid Calcium Phosphorus Magnesium Direct Bilirubin AST ALT Alkaline Phosphatase Lactate Dehydrogenase Troponin T C-Reactive Protein Total Protein Albumin Prealbumin Triglycerides 160 H Cholesterol LDL Cholesterol Direct HDL Cholesterol 31 L Urine pH Urine WBC (Auto) Urine Creatinine Urine Total Protein Vancomycin Trough Rheumatoid Factor Complement C4 Miscellaneous Test Crossmatch 09/04/16 09/04/16 09/04/16 11:34 17:46 23:29 WBC RBC Hgb Hct MCV MCH MCHC RDW Plt Count Lymph % (Auto) Oliver % (Auto) Lymph # Oliver # Baso # Seg Neutrophils % Seg Neuts % (Manual) Lymphocytes % (Manual) Monocytes % (Manual) Eosinophils % (Manual) Basophils % (Manual) Nucleated RBC % Seg Neutrophils # Seg Neutrophils # Man Lymphocytes # (Manual) Monocytes # (Manual) Eosinophils # (Manual) PT INR Fibrinogen dRVVT Confirm Interp Factor V Activity POC ABG pH POC ABG pCO2 POC ABG pO2 Sodium Potassium Chloride Carbon Dioxide BUN Creatinine Glucose POC Glucose 165 H 210 H 139 H Lactic Acid Calcium Phosphorus Magnesium Direct Bilirubin AST ALT Alkaline Phosphatase Lactate Dehydrogenase Troponin T C-Reactive Protein Total Protein Albumin Prealbumin Triglycerides Cholesterol LDL Cholesterol Direct HDL Cholesterol Urine pH Urine WBC (Auto) Urine Creatinine Urine Total Protein Vancomycin Trough Rheumatoid Factor Complement C4 Miscellaneous Test Crossmatch 09/05/16 09/05/16 09/05/16 04:05 04:05 05:38 WBC RBC Hgb Hct MCV 76 L D MCH 23 L MCHC RDW 17.8 H Plt Count Lymph % (Auto) Oliver % (Auto) Lymph # Oliver # Baso # Seg Neutrophils % Seg Neuts % (Manual) Lymphocytes % (Manual) Monocytes % (Manual) Eosinophils % (Manual) Basophils % (Manual) Nucleated RBC % Seg Neutrophils # Seg Neutrophils # Man Lymphocytes # (Manual) Monocytes # (Manual) Eosinophils # (Manual) PT INR Fibrinogen dRVVT Confirm Interp Factor V Activity POC ABG pH POC ABG pCO2 POC ABG pO2 Sodium 134 L Potassium Chloride Carbon Dioxide 18 L BUN Creatinine 1.8 H Glucose 192 H POC Glucose 175 H Lactic Acid Calcium Phosphorus Magnesium Direct Bilirubin AST ALT Alkaline Phosphatase Lactate Dehydrogenase Troponin T C-Reactive Protein Total Protein Albumin Prealbumin Triglycerides Cholesterol LDL Cholesterol Direct HDL Cholesterol Urine pH Urine WBC (Auto) Urine Creatinine Urine Total Protein Vancomycin Trough Rheumatoid Factor Complement C4 Miscellaneous Test Crossmatch 09/05/16 09/05/16 09/05/16 11:38 17:48 23:22 WBC RBC Hgb Hct MCV MCH MCHC RDW Plt Count Lymph % (Auto) Oliver % (Auto) Lymph # Oliver # Baso # Seg Neutrophils % Seg Neuts % (Manual) Lymphocytes % (Manual) Monocytes % (Manual) Eosinophils % (Manual) Basophils % (Manual) Nucleated RBC % Seg Neutrophils # Seg Neutrophils # Man Lymphocytes # (Manual) Monocytes # (Manual) Eosinophils # (Manual) PT INR Fibrinogen dRVVT Confirm Interp Factor V Activity POC ABG pH POC ABG pCO2 POC ABG pO2 Sodium Potassium Chloride Carbon Dioxide BUN Creatinine Glucose POC Glucose 164 H 186 H 195 H Lactic Acid Calcium Phosphorus Magnesium Direct Bilirubin AST ALT Alkaline Phosphatase Lactate Dehydrogenase Troponin T C-Reactive Protein Total Protein Albumin Prealbumin Triglycerides Cholesterol LDL Cholesterol Direct HDL Cholesterol Urine pH Urine WBC (Auto) Urine Creatinine Urine Total Protein Vancomycin Trough Rheumatoid Factor Complement C4 Miscellaneous Test Crossmatch 09/06/16 09/06/16 09/06/16 04:12 05:59 07:32 WBC RBC Hgb Hct MCV MCH MCHC RDW Plt Count Lymph % (Auto) Oliver % (Auto) Lymph # Oliver # Baso # Seg Neutrophils % Seg Neuts % (Manual) Lymphocytes % (Manual) Monocytes % (Manual) Eosinophils % (Manual) Basophils % (Manual) Nucleated RBC % Seg Neutrophils # Seg Neutrophils # Man Lymphocytes # (Manual) Monocytes # (Manual) Eosinophils # (Manual) PT INR Fibrinogen dRVVT Confirm Interp Factor V Activity POC ABG pH 7.514 H POC ABG pCO2 29.1 L POC ABG pO2 72 L Sodium 133 L Potassium 3.4 L Chloride 94.9 L Carbon Dioxide 19 L BUN 30 H Creatinine 2.1 H Glucose 139 H POC Glucose 146 H Lactic Acid Calcium Phosphorus Magnesium Direct Bilirubin AST ALT Alkaline Phosphatase Lactate Dehydrogenase Troponin T C-Reactive Protein Total Protein Albumin Prealbumin Triglycerides Cholesterol LDL Cholesterol Direct HDL Cholesterol Urine pH Urine WBC (Auto) Urine Creatinine Urine Total Protein Vancomycin Trough Rheumatoid Factor Complement C4 Miscellaneous Test Crossmatch 09/06/16 09/06/16 09/06/16 11:57 17:58 19:02 WBC RBC Hgb Hct MCV MCH MCHC RDW Plt Count Lymph % (Auto) Oliver % (Auto) Lymph # Oliver # Baso # Seg Neutrophils % Seg Neuts % (Manual) Lymphocytes % (Manual) Monocytes % (Manual) Eosinophils % (Manual) Basophils % (Manual) Nucleated RBC % Seg Neutrophils # Seg Neutrophils # Man Lymphocytes # (Manual) Monocytes # (Manual) Eosinophils # (Manual) PT INR Fibrinogen dRVVT Confirm Interp Factor V Activity POC ABG pH 7.465 H POC ABG pCO2 32.0 L POC ABG pO2 Sodium Potassium Chloride Carbon Dioxide BUN Creatinine Glucose POC Glucose 165 H 160 H Lactic Acid Calcium Phosphorus Magnesium Direct Bilirubin AST ALT Alkaline Phosphatase Lactate Dehydrogenase Troponin T C-Reactive Protein Total Protein Albumin Prealbumin Triglycerides Cholesterol LDL Cholesterol Direct HDL Cholesterol Urine pH Urine WBC (Auto) Urine Creatinine Urine Total Protein Vancomycin Trough Rheumatoid Factor Complement C4 Miscellaneous Test Crossmatch 09/06/16 09/07/16 09/07/16 23:45 02:47 02:47 WBC RBC Hgb Hct MCV MCH MCHC RDW Plt Count Lymph % (Auto) Oliver % (Auto) Lymph # Oliver # Baso # Seg Neutrophils % Seg Neuts % (Manual) Lymphocytes % (Manual) Monocytes % (Manual) Eosinophils % (Manual) Basophils % (Manual) Nucleated RBC % Seg Neutrophils # Seg Neutrophils # Man Lymphocytes # (Manual) Monocytes # (Manual) Eosinophils # (Manual) PT INR Fibrinogen dRVVT Confirm Interp Factor V Activity POC ABG pH POC ABG pCO2 POC ABG pO2 Sodium Potassium Chloride Carbon Dioxide BUN Creatinine Glucose POC Glucose 204 H Lactic Acid Calcium Phosphorus Magnesium Direct Bilirubin AST ALT Alkaline Phosphatase Lactate Dehydrogenase Troponin T C-Reactive Protein Total Protein Albumin Prealbumin Triglycerides Cholesterol LDL Cholesterol Direct HDL Cholesterol Urine pH Urine WBC (Auto) 68.0 H Urine Creatinine 106.1 H Urine Total Protein Vancomycin Trough Rheumatoid Factor Complement C4 Miscellaneous Test Crossmatch 09/07/16 09/07/16 09/07/16 04:50 06:19 06:39 WBC RBC Hgb Hct MCV MCH MCHC RDW Plt Count Lymph % (Auto) Oliver % (Auto) Lymph # Oliver # Baso # Seg Neutrophils % Seg Neuts % (Manual) Lymphocytes % (Manual) Monocytes % (Manual) Eosinophils % (Manual) Basophils % (Manual) Nucleated RBC % Seg Neutrophils # Seg Neutrophils # Man Lymphocytes # (Manual) Monocytes # (Manual) Eosinophils # (Manual) PT INR Fibrinogen dRVVT Confirm Interp Factor V Activity POC ABG pH 7.457 H POC ABG pCO2 32.1 L POC ABG pO2 76 L Sodium 132 L Potassium Chloride 94.7 L Carbon Dioxide BUN 53 H Creatinine 2.9 H Glucose 151 H POC Glucose 149 H Lactic Acid Calcium Phosphorus Magnesium Direct Bilirubin AST ALT Alkaline Phosphatase Lactate Dehydrogenase Troponin T C-Reactive Protein Total Protein Albumin Prealbumin Triglycerides Cholesterol LDL Cholesterol Direct HDL Cholesterol Urine pH Urine WBC (Auto) Urine Creatinine Urine Total Protein Vancomycin Trough Rheumatoid Factor Complement C4 Miscellaneous Test Crossmatch 09/07/16 09/07/16 09/07/16 09:20 11:43 11:43 WBC 19.4 H RBC Hgb 8.3 L Hct 26.4 L D MCV 72 L D MCH 22 L MCHC RDW 17.9 H Plt Count Lymph % (Auto) 8.5 L Oliver % (Auto) Lymph # Oliver # 1.0 H Baso # Seg Neutrophils % 85.8 H Seg Neuts % (Manual) Lymphocytes % (Manual) Monocytes % (Manual) Eosinophils % (Manual) Basophils % (Manual) Nucleated RBC % Seg Neutrophils # 16.6 H Seg Neutrophils # Man Lymphocytes # (Manual) Monocytes # (Manual) Eosinophils # (Manual) PT INR Fibrinogen dRVVT Confirm Interp Factor V Activity POC ABG pH POC ABG pCO2 POC ABG pO2 Sodium 134 L Potassium Chloride 97.2 L Carbon Dioxide 20 L BUN 58 H Creatinine 2.9 H Glucose 147 H POC Glucose Lactic Acid Calcium Phosphorus 2.40 L Magnesium 2.40 H Direct Bilirubin AST ALT Alkaline Phosphatase Lactate Dehydrogenase Troponin T C-Reactive Protein Total Protein 5.8 L Albumin 2.2 L Prealbumin Triglycerides Cholesterol LDL Cholesterol Direct HDL Cholesterol Urine pH Urine WBC (Auto) Urine Creatinine Urine Total Protein Vancomycin Trough Rheumatoid Factor Complement C4 58 H Miscellaneous Test Crossmatch 09/07/16 09/07/16 09/07/16 11:50 16:00 17:31 WBC RBC Hgb Hct MCV MCH MCHC RDW Plt Count Lymph % (Auto) Oliver % (Auto) Lymph # Oliver # Baso # Seg Neutrophils % Seg Neuts % (Manual) Lymphocytes % (Manual) Monocytes % (Manual) Eosinophils % (Manual) Basophils % (Manual) Nucleated RBC % Seg Neutrophils # Seg Neutrophils # Man Lymphocytes # (Manual) Monocytes # (Manual) Eosinophils # (Manual) PT INR Fibrinogen dRVVT Confirm Interp Factor V Activity POC ABG pH POC ABG pCO2 POC ABG pO2 158 H Sodium Potassium Chloride Carbon Dioxide BUN Creatinine Glucose POC Glucose 175 H Lactic Acid Calcium Phosphorus Magnesium Direct Bilirubin AST ALT Alkaline Phosphatase Lactate Dehydrogenase Troponin T C-Reactive Protein Total Protein Albumin Prealbumin Triglycerides Cholesterol LDL Cholesterol Direct HDL Cholesterol Urine pH Urine WBC (Auto) Urine Creatinine 66.3 H Urine Total Protein Vancomycin Trough Rheumatoid Factor Complement C4 Miscellaneous Test Crossmatch 09/07/16 09/08/16 09/08/16 23:50 05:46 06:18 WBC 17.8 H RBC 3.58 L Hgb 8.1 L Hct 25.5 L MCV 71 L MCH 23 L MCHC RDW 18.4 H Plt Count Lymph % (Auto) Oliver % (Auto) Lymph # Oliver # Baso # Seg Neutrophils % Seg Neuts % (Manual) 92.0 H Lymphocytes % (Manual) 6.0 L Monocytes % (Manual) Eosinophils % (Manual) Basophils % (Manual) Nucleated RBC % Seg Neutrophils # Seg Neutrophils # Man 16.4 H Lymphocytes # (Manual) 1.1 L Monocytes # (Manual) Eosinophils # (Manual) PT INR Fibrinogen dRVVT Confirm Interp Factor V Activity POC ABG pH POC ABG pCO2 34.3 L POC ABG pO2 71 L Sodium Potassium Chloride Carbon Dioxide BUN Creatinine Glucose POC Glucose 216 H Lactic Acid Calcium Phosphorus Magnesium Direct Bilirubin AST ALT Alkaline Phosphatase Lactate Dehydrogenase Troponin T C-Reactive Protein Total Protein Albumin Prealbumin Triglycerides Cholesterol LDL Cholesterol Direct HDL Cholesterol Urine pH Urine WBC (Auto) Urine Creatinine Urine Total Protein Vancomycin Trough Rheumatoid Factor Complement C4 Miscellaneous Test Crossmatch 09/08/16 09/08/16 09/08/16 06:18 06:51 10:55 WBC RBC Hgb Hct MCV MCH MCHC RDW Plt Count Lymph % (Auto) Oliver % (Auto) Lymph # Oliver # Baso # Seg Neutrophils % Seg Neuts % (Manual) Lymphocytes % (Manual) Monocytes % (Manual) Eosinophils % (Manual) Basophils % (Manual) Nucleated RBC % Seg Neutrophils # Seg Neutrophils # Man Lymphocytes # (Manual) Monocytes # (Manual) Eosinophils # (Manual) PT INR Fibrinogen dRVVT Confirm Interp Factor V Activity POC ABG pH POC ABG pCO2 POC ABG pO2 Sodium 133 L Potassium Chloride 96.9 L Carbon Dioxide 20 L BUN 63 H Creatinine 2.7 H Glucose 195 H POC Glucose 204 H 169 H Lactic Acid Calcium Phosphorus Magnesium Direct Bilirubin AST ALT Alkaline Phosphatase Lactate Dehydrogenase Troponin T C-Reactive Protein Total Protein Albumin Prealbumin Triglycerides Cholesterol LDL Cholesterol Direct HDL Cholesterol Urine pH Urine WBC (Auto) Urine Creatinine Urine Total Protein Vancomycin Trough Rheumatoid Factor Complement C4 Miscellaneous Test Crossmatch 09/08/16 09/08/16 09/08/16 11:48 11:48 11:48 WBC RBC Hgb Hct MCV MCH MCHC RDW Plt Count Lymph % (Auto) Oliver % (Auto) Lymph # Oliver # Baso # Seg Neutrophils % Seg Neuts % (Manual) Lymphocytes % (Manual) Monocytes % (Manual) Eosinophils % (Manual) Basophils % (Manual) Nucleated RBC % Seg Neutrophils # Seg Neutrophils # Man Lymphocytes # (Manual) Monocytes # (Manual) Eosinophils # (Manual) PT INR Fibrinogen 750 H dRVVT Confirm Interp Factor V Activity POC ABG pH POC ABG pCO2 POC ABG pO2 Sodium Potassium Chloride Carbon Dioxide BUN Creatinine Glucose POC Glucose Lactic Acid Calcium Phosphorus Magnesium Direct Bilirubin AST ALT Alkaline Phosphatase Lactate Dehydrogenase Troponin T C-Reactive Protein 15.70 H Total Protein Albumin Prealbumin Triglycerides Cholesterol LDL Cholesterol Direct HDL Cholesterol Urine pH Urine WBC (Auto) Urine Creatinine Urine Total Protein Vancomycin Trough Rheumatoid Factor 24 H Complement C4 Miscellaneous Test Crossmatch 09/08/16 09/08/16 09/09/16 15:35 18:25 00:24 WBC RBC Hgb Hct MCV MCH MCHC RDW Plt Count Lymph % (Auto) Oliver % (Auto) Lymph # Oliver # Baso # Seg Neutrophils % Seg Neuts % (Manual) Lymphocytes % (Manual) Monocytes % (Manual) Eosinophils % (Manual) Basophils % (Manual) Nucleated RBC % Seg Neutrophils # Seg Neutrophils # Man Lymphocytes # (Manual) Monocytes # (Manual) Eosinophils # (Manual) PT INR Fibrinogen dRVVT Confirm Interp Factor V Activity 182 H POC ABG pH POC ABG pCO2 POC ABG pO2 Sodium Potassium Chloride Carbon Dioxide BUN Creatinine Glucose POC Glucose 184 H 216 H Lactic Acid Calcium Phosphorus Magnesium Direct Bilirubin AST ALT Alkaline Phosphatase Lactate Dehydrogenase Troponin T C-Reactive Protein Total Protein Albumin Prealbumin Triglycerides Cholesterol LDL Cholesterol Direct HDL Cholesterol Urine pH Urine WBC (Auto) Urine Creatinine Urine Total Protein Vancomycin Trough Rheumatoid Factor Complement C4 Miscellaneous Test Crossmatch 09/09/16 09/09/16 09/09/16 03:00 03:00 04:04 WBC 27.9 H RBC Hgb 8.7 L Hct 28.1 L MCV 72 L MCH 22 L MCHC RDW 18.4 H Plt Count 485 H Lymph % (Auto) Oliver % (Auto) Lymph # Oliver # Baso # Seg Neutrophils % Seg Neuts % (Manual) 77.0 H Lymphocytes % (Manual) 9.0 L Monocytes % (Manual) Eosinophils % (Manual) Basophils % (Manual) Nucleated RBC % Seg Neutrophils # Seg Neutrophils # Man 21.5 H Lymphocytes # (Manual) Monocytes # (Manual) 2.0 H Eosinophils # (Manual) PT INR Fibrinogen dRVVT Confirm Interp Factor V Activity POC ABG pH POC ABG pCO2 POC ABG pO2 121 H Sodium 135 L Potassium Chloride 96.3 L Carbon Dioxide 21 L BUN 83 H Creatinine 3.0 H Glucose 135 H POC Glucose Lactic Acid Calcium Phosphorus Magnesium Direct Bilirubin AST ALT Alkaline Phosphatase Lactate Dehydrogenase Troponin T C-Reactive Protein Total Protein Albumin Prealbumin Triglycerides Cholesterol LDL Cholesterol Direct HDL Cholesterol Urine pH Urine WBC (Auto) Urine Creatinine Urine Total Protein Vancomycin Trough Rheumatoid Factor Complement C4 Miscellaneous Test Crossmatch 09/09/16 09/09/16 09/09/16 05:41 11:55 14:13 WBC RBC Hgb Hct MCV MCH MCHC RDW Plt Count Lymph % (Auto) Oliver % (Auto) Lymph # Oliver # Baso # Seg Neutrophils % Seg Neuts % (Manual) Lymphocytes % (Manual) Monocytes % (Manual) Eosinophils % (Manual) Basophils % (Manual) Nucleated RBC % Seg Neutrophils # Seg Neutrophils # Man Lymphocytes # (Manual) Monocytes # (Manual) Eosinophils # (Manual) PT INR Fibrinogen dRVVT Confirm Interp Factor V Activity POC ABG pH POC ABG pCO2 POC ABG pO2 Sodium Potassium Chloride Carbon Dioxide BUN Creatinine Glucose POC Glucose 155 H 186 H Lactic Acid Calcium Phosphorus Magnesium Direct Bilirubin AST ALT Alkaline Phosphatase Lactate Dehydrogenase Troponin T C-Reactive Protein Total Protein Albumin Prealbumin Triglycerides Cholesterol LDL Cholesterol Direct HDL Cholesterol Urine pH Urine WBC (Auto) 25.0 H Urine Creatinine Urine Total Protein Vancomycin Trough Rheumatoid Factor Complement C4 Miscellaneous Test Crossmatch 09/09/16 09/09/16 09/10/16 17:33 23:13 05:09 WBC RBC Hgb Hct MCV MCH MCHC RDW Plt Count Lymph % (Auto) [place] % (Auto) Lymph # Oliver # Baso # Seg Neutrophils % Seg Neuts % (Manual) Lymphocytes % (Manual) Monocytes % (Manual) Eosinophils % (Manual) Basophils % (Manual) Nucleated RBC % Seg Neutrophils # Seg Neutrophils # Man Lymphocytes # (Manual) Monocytes # (Manual) Eosinophils # (Manual) PT INR Fibrinogen dRVVT Confirm Interp Factor V Activity POC ABG pH POC ABG pCO2 POC ABG pO2 74 L Sodium Potassium Chloride Carbon Dioxide BUN Creatinine Glucose POC Glucose 211 H 215 H Lactic Acid Calcium Phosphorus Magnesium Direct Bilirubin AST ALT Alkaline Phosphatase Lactate Dehydrogenase Troponin T C-Reactive Protein Total Protein Albumin Prealbumin Triglycerides Cholesterol LDL Cholesterol Direct HDL Cholesterol Urine pH Urine WBC (Auto) Urine Creatinine Urine Total Protein Vancomycin Trough Rheumatoid Factor Complement C4 Miscellaneous Test Crossmatch 09/10/16 09/10/16 09/10/16 05:17 05:17 11:31 WBC 15.8 H RBC 3.25 L Hgb 7.3 L Hct 22.9 L MCV 71 L MCH 23 L MCHC RDW 18.4 H Plt Count Lymph % (Auto) [place] % (Auto) Lymph # Oliver # Baso # Seg Neutrophils % Seg Neuts % (Manual) 91.0 H Lymphocytes % (Manual) 4.0 L Monocytes % (Manual) Eosinophils % (Manual) Basophils % (Manual) Nucleated RBC % Seg Neutrophils # Seg Neutrophils # Man 14.4 H Lymphocytes # (Manual) 0.6 L Monocytes # (Manual) Eosinophils # (Manual) PT INR Fibrinogen dRVVT Confirm Interp Factor V Activity POC ABG pH POC ABG pCO2 POC ABG pO2 Sodium Potassium Chloride Carbon Dioxide 21 L BUN 93 H Creatinine 2.9 H Glucose 146 H POC Glucose 188 H Lactic Acid Calcium 8.1 L Phosphorus Magnesium Direct Bilirubin AST ALT Alkaline Phosphatase Lactate Dehydrogenase Troponin T C-Reactive Protein Total Protein Albumin Prealbumin Triglycerides Cholesterol LDL Cholesterol Direct HDL Cholesterol Urine pH Urine WBC (Auto) Urine Creatinine Urine Total Protein Vancomycin Trough Rheumatoid Factor Complement C4 Miscellaneous Test Crossmatch 09/10/16 09/10/16 09/10/16 13:17 17:20 23:32 WBC RBC Hgb Hct MCV MCH MCHC RDW Plt Count Lymph % (Auto) [place] % (Auto) Lymph # Oliver # Baso # Seg Neutrophils % Seg Neuts % (Manual) Lymphocytes % (Manual) Monocytes % (Manual) Eosinophils % (Manual) Basophils % (Manual) Nucleated RBC % Seg Neutrophils # Seg Neutrophils # Man Lymphocytes # (Manual) Monocytes # (Manual) Eosinophils # (Manual) PT INR Fibrinogen dRVVT Confirm Interp Factor V Activity POC ABG pH POC ABG pCO2 POC ABG pO2 Sodium Potassium Chloride Carbon Dioxide BUN Creatinine Glucose POC Glucose 199 H 186 H Lactic Acid Calcium Phosphorus Magnesium Direct Bilirubin AST ALT Alkaline Phosphatase Lactate Dehydrogenase Troponin T C-Reactive Protein Total Protein Albumin Prealbumin Triglycerides Cholesterol LDL Cholesterol Direct HDL Cholesterol Urine pH Urine WBC (Auto) Urine Creatinine Urine Total Protein Vancomycin Trough Rheumatoid Factor Complement C4 Miscellaneous Test Crossmatch See Detail 09/11/16 09/11/16 09/11/16 05:10 05:10 05:17 WBC 28.4 H RBC Hgb 9.2 L Hct 29.3 L D MCV 73 L MCH 23 L MCHC RDW 18.9 H Plt Count 452 H Lymph % (Auto) [place] % (Auto) Lymph # Oliver # Baso # Seg Neutrophils % Seg Neuts % (Manual) 89.5 H Lymphocytes % (Manual) 2.0 L Monocytes % (Manual) Eosinophils % (Manual) Basophils % (Manual) Nucleated RBC % Seg Neutrophils # Seg Neutrophils # Man 25.4 H Lymphocytes # (Manual) 0.6 L Monocytes # (Manual) 1.3 H Eosinophils # (Manual) PT INR Fibrinogen dRVVT Confirm Interp Factor V Activity POC ABG pH POC ABG pCO2 POC ABG pO2 Sodium 136 L Potassium Chloride Carbon Dioxide 18 L BUN 107 H Creatinine 2.6 H Glucose 187 H POC Glucose 230 H Lactic Acid Calcium 8.3 L Phosphorus Magnesium Direct Bilirubin AST ALT Alkaline Phosphatase Lactate Dehydrogenase Troponin T C-Reactive Protein Total Protein Albumin Prealbumin Triglycerides Cholesterol LDL Cholesterol Direct HDL Cholesterol Urine pH Urine WBC (Auto) Urine Creatinine Urine Total Protein Vancomycin Trough Rheumatoid Factor Complement C4 Miscellaneous Test Crossmatch 09/11/16 09/11/16 09/11/16 05:55 12:02 17:32 WBC RBC Hgb Hct MCV MCH MCHC RDW Plt Count Lymph % (Auto) [place] % (Auto) Lymph # [place] # Baso # Seg Neutrophils % Seg Neuts % (Manual) Lymphocytes % (Manual) Monocytes % (Manual) Eosinophils % (Manual) Basophils % (Manual) Nucleated RBC % Seg Neutrophils # Seg Neutrophils # Man Lymphocytes # (Manual) Monocytes # (Manual) Eosinophils # (Manual) PT INR Fibrinogen dRVVT Confirm Interp Factor V Activity POC ABG pH POC ABG pCO2 33.8 L POC ABG pO2 Sodium Potassium Chloride Carbon Dioxide BUN Creatinine Glucose POC Glucose 191 H 239 H Lactic Acid Calcium Phosphorus Magnesium Direct Bilirubin AST ALT Alkaline Phosphatase Lactate Dehydrogenase Troponin T C-Reactive Protein Total Protein Albumin Prealbumin Triglycerides Cholesterol LDL Cholesterol Direct HDL Cholesterol Urine pH Urine WBC (Auto) Urine Creatinine Urine Total Protein Vancomycin Trough Rheumatoid Factor Complement C4 Miscellaneous Test Crossmatch 09/11/16 09/12/16 09/12/16 23:52 05:09 05:32 WBC RBC Hgb Hct MCV MCH MCHC RDW Plt Count Lymph % (Auto) [place] % (Auto) Lymph # [place] # Baso # Seg Neutrophils % Seg Neuts % (Manual) Lymphocytes % (Manual) Monocytes % (Manual) Eosinophils % (Manual) Basophils % (Manual) Nucleated RBC % Seg Neutrophils # Seg Neutrophils # Man Lymphocytes # (Manual) Monocytes # (Manual) Eosinophils # (Manual) PT INR Fibrinogen dRVVT Confirm Interp Factor V Activity POC ABG pH POC ABG pCO2 34.6 L POC ABG pO2 Sodium Potassium Chloride Carbon Dioxide BUN Creatinine Glucose POC Glucose 265 H 184 H Lactic Acid Calcium Phosphorus Magnesium Direct Bilirubin AST ALT Alkaline Phosphatase Lactate Dehydrogenase Troponin T C-Reactive Protein Total Protein Albumin Prealbumin Triglycerides Cholesterol LDL Cholesterol Direct HDL Cholesterol Urine pH Urine WBC (Auto) Urine Creatinine Urine Total Protein Vancomycin Trough Rheumatoid Factor Complement C4 Miscellaneous Test Crossmatch 09/12/16 09/12/16 09/12/16 06:45 06:45 07:22 WBC 31.7 H RBC 3.54 L Hgb 8.3 L Hct 25.9 L MCV 73 L MCH 23 L MCHC RDW 18.9 H Plt Count Lymph % (Auto) [place] % (Auto) Lymph # Oliver # Baso # Seg Neutrophils % Seg Neuts % (Manual) 88.5 H Lymphocytes % (Manual) 4.5 L Monocytes % (Manual) Eosinophils % (Manual) Basophils % (Manual) Nucleated RBC % Seg Neutrophils # Seg Neutrophils # Man 28.1 H Lymphocytes # (Manual) Monocytes # (Manual) 1.0 H Eosinophils # (Manual) PT INR Fibrinogen dRVVT Confirm Interp Factor V Activity POC ABG pH POC ABG pCO2 POC ABG pO2 Sodium Potassium Chloride Carbon Dioxide 20 L BUN 115 H Creatinine 2.7 H Glucose 165 H POC Glucose Lactic Acid Calcium 8.0 L Phosphorus Magnesium Direct Bilirubin AST ALT Alkaline Phosphatase Lactate Dehydrogenase Troponin T C-Reactive Protein Total Protein Albumin Prealbumin Triglycerides 217 H Cholesterol LDL Cholesterol Direct HDL Cholesterol Urine pH Urine WBC (Auto) Urine Creatinine Urine Total Protein Vancomycin Trough Rheumatoid Factor Complement C4 Miscellaneous Test Crossmatch 09/12/16 09/12/16 09/12/16 07:22 09:59 12:21 WBC RBC Hgb Hct MCV MCH MCHC RDW Plt Count Lymph % (Auto) [place] % (Auto) Lymph # [place] # Baso # Seg Neutrophils % Seg Neuts % (Manual) Lymphocytes % (Manual) Monocytes % (Manual) Eosinophils % (Manual) Basophils % (Manual) Nucleated RBC % Seg Neutrophils # Seg Neutrophils # Man Lymphocytes # (Manual) Monocytes # (Manual) Eosinophils # (Manual) PT INR Fibrinogen dRVVT Confirm Interp Positive H Factor V Activity POC ABG pH POC ABG pCO2 POC ABG pO2 Sodium Potassium Chloride Carbon Dioxide BUN Creatinine Glucose POC Glucose 224 H Lactic Acid Calcium Phosphorus Magnesium Direct Bilirubin AST ALT Alkaline Phosphatase Lactate Dehydrogenase Troponin T C-Reactive Protein 1.70 H Total Protein Albumin Prealbumin Triglycerides Cholesterol LDL Cholesterol Direct HDL Cholesterol Urine pH Urine WBC (Auto) Urine Creatinine Urine Total Protein Vancomycin Trough Rheumatoid Factor Complement C4 Miscellaneous Test Crossmatch 09/12/16 09/12/16 09/13/16 16:51 23:28 04:00 WBC 45.0 H* RBC Hgb 9.4 L Hct MCV 75 L MCH 23 L MCHC RDW 19.0 H Plt Count 470 H Lymph % (Auto) [place] % (Auto) Lymph # Oliver # Baso # Seg Neutrophils % Seg Neuts % (Manual) 89.0 H Lymphocytes % (Manual) 5.0 L Monocytes % (Manual) Eosinophils % (Manual) Basophils % (Manual) Nucleated RBC % Seg Neutrophils # Seg Neutrophils # Man 40.1 H Lymphocytes # (Manual) Monocytes # (Manual) Eosinophils # (Manual) PT INR Fibrinogen dRVVT Confirm Interp Factor V Activity POC ABG pH POC ABG pCO2 POC ABG pO2 Sodium Potassium Chloride Carbon Dioxide BUN Creatinine Glucose POC Glucose 169 H 150 H Lactic Acid Calcium Phosphorus Magnesium Direct Bilirubin AST ALT Alkaline Phosphatase Lactate Dehydrogenase Troponin T C-Reactive Protein Total Protein Albumin Prealbumin Triglycerides Cholesterol LDL Cholesterol Direct HDL Cholesterol Urine pH Urine WBC (Auto) Urine Creatinine Urine Total Protein Vancomycin Trough Rheumatoid Factor Complement C4 Miscellaneous Test Crossmatch 09/13/16 09/13/16 09/13/16 04:00 11:26 17:31 WBC RBC Hgb Hct MCV MCH MCHC RDW Plt Count Lymph % (Auto) [place] % (Auto) Lymph # [place] # Baso # Seg Neutrophils % Seg Neuts % (Manual) Lymphocytes % (Manual) Monocytes % (Manual) Eosinophils % (Manual) Basophils % (Manual) Nucleated RBC % Seg Neutrophils # Seg Neutrophils # Man Lymphocytes # (Manual) Monocytes # (Manual) Eosinophils # (Manual) PT INR Fibrinogen dRVVT Confirm Interp Factor V Activity POC ABG pH POC ABG pCO2 POC ABG pO2 Sodium Potassium Chloride Carbon Dioxide 20 L BUN 116 H Creatinine 3.0 H Glucose 172 H POC Glucose 140 H 183 H Lactic Acid Calcium Phosphorus Magnesium Direct Bilirubin AST ALT Alkaline Phosphatase Lactate Dehydrogenase Troponin T C-Reactive Protein Total Protein 6.2 L Albumin 2.9 L Prealbumin Triglycerides Cholesterol LDL Cholesterol Direct HDL Cholesterol Urine pH Urine WBC (Auto) Urine Creatinine Urine Total Protein Vancomycin Trough Rheumatoid Factor Complement C4 Miscellaneous Test Crossmatch 09/13/16 09/14/16 09/14/16 23:23 04:06 04:07 WBC 29.4 H RBC Hgb 8.9 L Hct 27.3 L MCV 75 L MCH 24 L MCHC RDW 19.1 H Plt Count Lymph % (Auto) [place] % (Auto) Lymph # Oliver # Baso # Seg Neutrophils % Seg Neuts % (Manual) 84.0 H Lymphocytes % (Manual) 6.0 L Monocytes % (Manual) 9.0 H Eosinophils % (Manual) Basophils % (Manual) Nucleated RBC % Seg Neutrophils # Seg Neutrophils # Man 24.7 H Lymphocytes # (Manual) Monocytes # (Manual) 2.6 H Eosinophils # (Manual) PT INR Fibrinogen dRVVT Confirm Interp Factor V Activity POC ABG pH 7.342 L POC ABG pCO2 POC ABG pO2 116 H Sodium Potassium Chloride Carbon Dioxide BUN Creatinine Glucose POC Glucose 154 H Lactic Acid Calcium Phosphorus Magnesium Direct Bilirubin AST ALT Alkaline Phosphatase Lactate Dehydrogenase Troponin T C-Reactive Protein Total Protein Albumin Prealbumin Triglycerides Cholesterol LDL Cholesterol Direct HDL Cholesterol Urine pH Urine WBC (Auto) Urine Creatinine Urine Total Protein Vancomycin Trough Rheumatoid Factor Complement C4 Miscellaneous Test Crossmatch 09/14/16 09/14/16 09/14/16 04:07 05:29 12:19 WBC RBC Hgb Hct MCV MCH MCHC RDW Plt Count Lymph % (Auto) [place] % (Auto) Lymph # [place] # Baso # Seg Neutrophils % Seg Neuts % (Manual) Lymphocytes % (Manual) Monocytes % (Manual) Eosinophils % (Manual) Basophils % (Manual) Nucleated RBC % Seg Neutrophils # Seg Neutrophils # Man Lymphocytes # (Manual) Monocytes # (Manual) Eosinophils # (Manual) PT INR Fibrinogen dRVVT Confirm Interp Factor V Activity POC ABG pH POC ABG pCO2 POC ABG pO2 Sodium 136 L Potassium Chloride Carbon Dioxide 18 L BUN 121 H Creatinine 2.8 H Glucose 214 H POC Glucose 239 H 181 H Lactic Acid Calcium Phosphorus Magnesium Direct Bilirubin AST ALT Alkaline Phosphatase Lactate Dehydrogenase Troponin T C-Reactive Protein Total Protein Albumin Prealbumin Triglycerides Cholesterol LDL Cholesterol Direct HDL Cholesterol Urine pH Urine WBC (Auto) Urine Creatinine Urine Total Protein Vancomycin Trough Rheumatoid Factor Complement C4 Miscellaneous Test Crossmatch 09/14/16 09/14/16 09/15/16 18:12 23:37 05:00 WBC 26.1 H RBC 3.05 L Hgb 7.2 L Hct 22.9 L MCV 75 L MCH 24 L MCHC RDW 19.0 H Plt Count Lymph % (Auto) [place] % (Auto) Lymph # Oliver # Baso # Seg Neutrophils % Seg Neuts % (Manual) Lymphocytes % (Manual) Monocytes % (Manual) Eosinophils % (Manual) Basophils % (Manual) Nucleated RBC % Seg Neutrophils # Seg Neutrophils # Man Lymphocytes # (Manual) Monocytes # (Manual) Eosinophils # (Manual) PT INR Fibrinogen dRVVT Confirm Interp Factor V Activity POC ABG pH POC ABG pCO2 POC ABG pO2 Sodium Potassium Chloride Carbon Dioxide BUN Creatinine Glucose POC Glucose 266 H 154 H Lactic Acid Calcium Phosphorus Magnesium Direct Bilirubin AST ALT Alkaline Phosphatase Lactate Dehydrogenase Troponin T C-Reactive Protein Total Protein Albumin Prealbumin Triglycerides Cholesterol LDL Cholesterol Direct HDL Cholesterol Urine pH Urine WBC (Auto) Urine Creatinine Urine Total Protein Vancomycin Trough Rheumatoid Factor Complement C4 Miscellaneous Test Crossmatch 09/15/16 09/15/16 09/15/16 05:00 05:17 12:45 WBC RBC Hgb Hct MCV MCH MCHC RDW Plt Count Lymph % (Auto) [place] % (Auto) Lymph # [place] # Baso # Seg Neutrophils % Seg Neuts % (Manual) Lymphocytes % (Manual) Monocytes % (Manual) Eosinophils % (Manual) Basophils % (Manual) Nucleated RBC % Seg Neutrophils # Seg Neutrophils # Man Lymphocytes # (Manual) Monocytes # (Manual) Eosinophils # (Manual) PT INR Fibrinogen dRVVT Confirm Interp Factor V Activity POC ABG pH POC ABG pCO2 POC ABG pO2 Sodium Potassium 5.2 H Chloride Carbon Dioxide 18 L BUN 139 H Creatinine 3.7 H Glucose 227 H POC Glucose 226 H 244 H Lactic Acid Calcium 8.3 L Phosphorus Magnesium Direct Bilirubin AST ALT Alkaline Phosphatase Lactate Dehydrogenase Troponin T C-Reactive Protein Total Protein Albumin Prealbumin Triglycerides Cholesterol LDL Cholesterol Direct HDL Cholesterol Urine pH Urine WBC (Auto) Urine Creatinine Urine Total Protein Vancomycin Trough Rheumatoid Factor Complement C4 Miscellaneous Test Crossmatch 09/15/16 09/15/16 09/15/16 14:32 17:33 23:35 WBC RBC Hgb Hct MCV MCH MCHC RDW Plt Count Lymph % (Auto) [place] % (Auto) Lymph # [place] # Baso # Seg Neutrophils % Seg Neuts % (Manual) Lymphocytes % (Manual) Monocytes % (Manual) Eosinophils % (Manual) Basophils % (Manual) Nucleated RBC % Seg Neutrophils # Seg Neutrophils # Man Lymphocytes # (Manual) Monocytes # (Manual) Eosinophils # (Manual) PT INR Fibrinogen dRVVT Confirm Interp Factor V Activity POC ABG pH POC ABG pCO2 27.7 L POC ABG pO2 120 H Sodium Potassium Chloride Carbon Dioxide BUN Creatinine Glucose POC Glucose 232 H 167 H Lactic Acid Calcium Phosphorus Magnesium Direct Bilirubin AST ALT Alkaline Phosphatase Lactate Dehydrogenase Troponin T C-Reactive Protein Total Protein Albumin Prealbumin Triglycerides Cholesterol LDL Cholesterol Direct HDL Cholesterol Urine pH Urine WBC (Auto) Urine Creatinine Urine Total Protein Vancomycin Trough Rheumatoid Factor Complement C4 Miscellaneous Test Crossmatch 09/16/16 09/16/16 09/16/16 03:58 10:27 10:27 WBC 19.0 H RBC 2.77 L Hgb 6.5 L Hct 20.9 L MCV 76 L MCH 23 L MCHC RDW 19.3 H Plt Count Lymph % (Auto) 11.0 L [place] % (Auto) Lymph # Oliver # 1.1 H Baso # Seg Neutrophils % 82.5 H Seg Neuts % (Manual) Lymphocytes % (Manual) Monocytes % (Manual) Eosinophils % (Manual) Basophils % (Manual) Nucleated RBC % Seg Neutrophils # 15.7 H Seg Neutrophils # Man Lymphocytes # (Manual) Monocytes # (Manual) Eosinophils # (Manual) PT INR Fibrinogen dRVVT Confirm Interp Factor V Activity POC ABG pH POC ABG pCO2 POC ABG pO2 Sodium Potassium Chloride 109.3 H Carbon Dioxide 18 L BUN 139 H Creatinine 4.1 H Glucose 144 H POC Glucose 146 H Lactic Acid Calcium 8.1 L Phosphorus Magnesium Direct Bilirubin AST ALT Alkaline Phosphatase Lactate Dehydrogenase Troponin T C-Reactive Protein Total Protein Albumin Prealbumin Triglycerides Cholesterol LDL Cholesterol Direct HDL Cholesterol Urine pH Urine WBC (Auto) Urine Creatinine Urine Total Protein Vancomycin Trough Rheumatoid Factor Complement C4 Miscellaneous Test Crossmatch 09/16/16 09/16/16 09/16/16 12:04 12:10 13:55 WBC RBC Hgb Hct MCV MCH MCHC RDW Plt Count Lymph % (Auto) [place] % (Auto) Lymph # [place] # Baso # Seg Neutrophils % Seg Neuts % (Manual) Lymphocytes % (Manual) Monocytes % (Manual) Eosinophils % (Manual) Basophils % (Manual) Nucleated RBC % Seg Neutrophils # Seg Neutrophils # Man Lymphocytes # (Manual) Monocytes # (Manual) Eosinophils # (Manual) PT INR Fibrinogen dRVVT Confirm Interp Factor V Activity POC ABG pH POC ABG pCO2 32.9 L POC ABG pO2 Sodium Potassium Chloride Carbon Dioxide BUN Creatinine Glucose POC Glucose 185 H Lactic Acid Calcium Phosphorus Magnesium Direct Bilirubin AST ALT Alkaline Phosphatase Lactate Dehydrogenase Troponin T C-Reactive Protein Total Protein Albumin Prealbumin Triglycerides Cholesterol LDL Cholesterol Direct HDL Cholesterol Urine pH Urine WBC (Auto) Urine Creatinine Urine Total Protein Vancomycin Trough Rheumatoid Factor Complement C4 Miscellaneous Test Crossmatch See Detail 09/16/16 09/16/16 09/16/16 17:55 19:19 23:48 WBC RBC Hgb Hct MCV MCH MCHC RDW Plt Count Lymph % (Auto) [place] % (Auto) Lymph # [place] # Baso # Seg Neutrophils % Seg Neuts % (Manual) Lymphocytes % (Manual) Monocytes % (Manual) Eosinophils % (Manual) Basophils % (Manual) Nucleated RBC % Seg Neutrophils # Seg Neutrophils # Man Lymphocytes # (Manual) Monocytes # (Manual) Eosinophils # (Manual) PT INR Fibrinogen dRVVT Confirm Interp Factor V Activity POC ABG pH POC ABG pCO2 POC ABG pO2 Sodium Potassium Chloride Carbon Dioxide BUN Creatinine Glucose POC Glucose 222 H 107 H Lactic Acid Calcium Phosphorus Magnesium Direct Bilirubin AST ALT Alkaline Phosphatase Lactate Dehydrogenase Troponin T C-Reactive Protein Total Protein Albumin Prealbumin Triglycerides Cholesterol LDL Cholesterol Direct HDL Cholesterol Urine pH Urine WBC (Auto) Urine Creatinine 47.4 H Urine Total Protein 16 H Vancomycin Trough Rheumatoid Factor Complement C4 Miscellaneous Test Crossmatch 09/17/16 09/17/16 09/17/16 03:45 03:45 04:55 WBC 19.6 H RBC 3.41 L Hgb 8.5 L Hct 26.7 L MCV 78 L MCH 25 L MCHC RDW 19.9 H Plt Count Lymph % (Auto) 9.3 L [place] % (Auto) Lymph # Oliver # 1.2 H Baso # Seg Neutrophils % 83.9 H Seg Neuts % (Manual) Lymphocytes % (Manual) Monocytes % (Manual) Eosinophils % (Manual) Basophils % (Manual) Nucleated RBC % Seg Neutrophils # 16.4 H Seg Neutrophils # Man Lymphocytes # (Manual) Monocytes # (Manual) Eosinophils # (Manual) PT INR Fibrinogen dRVVT Confirm Interp Factor V Activity POC ABG pH POC ABG pCO2 POC ABG pO2 Sodium 146 H Potassium 5.1 H Chloride 110.9 H Carbon Dioxide 16 L BUN 146 H Creatinine 4.0 H Glucose 108 H POC Glucose 133 H Lactic Acid Calcium Phosphorus Magnesium 3.00 H Direct Bilirubin AST ALT Alkaline Phosphatase Lactate Dehydrogenase Troponin T C-Reactive Protein Total Protein Albumin Prealbumin Triglycerides Cholesterol LDL Cholesterol Direct HDL Cholesterol Urine pH Urine WBC (Auto) Urine Creatinine Urine Total Protein Vancomycin Trough Rheumatoid Factor Complement C4 Miscellaneous Test Crossmatch 09/17/16 09/17/16 09/17/16 11:15 17:33 23:47 WBC RBC Hgb Hct MCV MCH MCHC RDW Plt Count Lymph % (Auto) [place] % (Auto) Lymph # [place] # Baso # Seg Neutrophils % Seg Neuts % (Manual) Lymphocytes % (Manual) Monocytes % (Manual) Eosinophils % (Manual) Basophils % (Manual) Nucleated RBC % Seg Neutrophils # Seg Neutrophils # Man Lymphocytes # (Manual) Monocytes # (Manual) Eosinophils # (Manual) PT INR Fibrinogen dRVVT Confirm Interp Factor V Activity POC ABG pH POC ABG pCO2 POC ABG pO2 Sodium Potassium Chloride Carbon Dioxide BUN Creatinine Glucose POC Glucose 176 H 246 H 148 H Lactic Acid Calcium Phosphorus Magnesium Direct Bilirubin AST ALT Alkaline Phosphatase Lactate Dehydrogenase Troponin T C-Reactive Protein Total Protein Albumin Prealbumin Triglycerides Cholesterol LDL Cholesterol Direct HDL Cholesterol Urine pH Urine WBC (Auto) Urine Creatinine Urine Total Protein Vancomycin Trough Rheumatoid Factor Complement C4 Miscellaneous Test Crossmatch 09/18/16 09/18/16 09/18/16 05:33 08:31 08:31 WBC 18.0 H RBC 3.17 L Hgb 9.0 L Hct 25.7 L MCV MCH MCHC 35 H RDW 20.4 H Plt Count Lymph % (Auto) [place] % (Auto) Lymph # [place] # Baso # Seg Neutrophils % Seg Neuts % (Manual) Lymphocytes % (Manual) Monocytes % (Manual) Eosinophils % (Manual) Basophils % (Manual) Nucleated RBC % Seg Neutrophils # Seg Neutrophils # Man Lymphocytes # (Manual) Monocytes # (Manual) Eosinophils # (Manual) PT INR Fibrinogen dRVVT Confirm Interp Factor V Activity POC ABG pH POC ABG pCO2 POC ABG pO2 Sodium Potassium Chloride Carbon Dioxide 15 L BUN 124 H Creatinine 3.8 H Glucose POC Glucose 120 H Lactic Acid Calcium 8.1 L Phosphorus Magnesium Direct Bilirubin AST ALT Alkaline Phosphatase Lactate Dehydrogenase Troponin T C-Reactive Protein Total Protein Albumin Prealbumin Triglycerides Cholesterol LDL Cholesterol Direct HDL Cholesterol Urine pH Urine WBC (Auto) Urine Creatinine Urine Total Protein Vancomycin Trough Rheumatoid Factor Complement C4 Miscellaneous Test Crossmatch 09/18/16 09/18/16 09/18/16 12:03 15:34 17:50 WBC RBC Hgb Hct MCV MCH MCHC RDW Plt Count Lymph % (Auto) [place] % (Auto) Lymph # [place] # Baso # Seg Neutrophils % Seg Neuts % (Manual) Lymphocytes % (Manual) Monocytes % (Manual) Eosinophils % (Manual) Basophils % (Manual) Nucleated RBC % Seg Neutrophils # Seg Neutrophils # Man Lymphocytes # (Manual) Monocytes # (Manual) Eosinophils # (Manual) PT INR Fibrinogen dRVVT Confirm Interp Factor V Activity POC ABG pH POC ABG pCO2 25.7 L POC ABG pO2 66 L Sodium Potassium Chloride Carbon Dioxide BUN Creatinine Glucose POC Glucose 156 H 220 H Lactic Acid Calcium Phosphorus Magnesium Direct Bilirubin AST ALT Alkaline Phosphatase Lactate Dehydrogenase Troponin T C-Reactive Protein Total Protein Albumin Prealbumin Triglycerides Cholesterol LDL Cholesterol Direct HDL Cholesterol Urine pH Urine WBC (Auto) Urine Creatinine Urine Total Protein Vancomycin Trough Rheumatoid Factor Complement C4 Miscellaneous Test Crossmatch 09/19/16 09/19/16 09/19/16 06:21 09:50 09:50 WBC 17.1 H RBC 3.49 L Hgb 9.0 L Hct 28.1 L MCV MCH 26 L MCHC RDW 20.8 H Plt Count Lymph % (Auto) 11.5 L [place] % (Auto) 7.5 H Lymph # Oliver # 1.3 H Baso # Seg Neutrophils % 79.8 H Seg Neuts % (Manual) Lymphocytes % (Manual) Monocytes % (Manual) Eosinophils % (Manual) Basophils % (Manual) Nucleated RBC % Seg Neutrophils # 13.7 H Seg Neutrophils # Man Lymphocytes # (Manual) Monocytes # (Manual) Eosinophils # (Manual) PT INR Fibrinogen dRVVT Confirm Interp Factor V Activity POC ABG pH POC ABG pCO2 POC ABG pO2 Sodium Potassium Chloride 108.6 H Carbon Dioxide 15 L BUN 125 H Creatinine 4.1 H Glucose 124 H POC Glucose 119 H Lactic Acid Calcium Phosphorus Magnesium Direct Bilirubin AST ALT Alkaline Phosphatase Lactate Dehydrogenase Troponin T C-Reactive Protein Total Protein Albumin Prealbumin Triglycerides Cholesterol LDL Cholesterol Direct HDL Cholesterol Urine pH Urine WBC (Auto) Urine Creatinine Urine Total Protein Vancomycin Trough Rheumatoid Factor Complement C4 Miscellaneous Test Crossmatch 09/19/16 09/19/16 09/19/16 11:25 17:53 23:36 WBC RBC Hgb Hct MCV MCH MCHC RDW Plt Count Lymph % (Auto) [place] % (Auto) Lymph # [place] # Baso # Seg Neutrophils % Seg Neuts % (Manual) Lymphocytes % (Manual) Monocytes % (Manual) Eosinophils % (Manual) Basophils % (Manual) Nucleated RBC % Seg Neutrophils # Seg Neutrophils # Man Lymphocytes # (Manual) Monocytes # (Manual) Eosinophils # (Manual) PT INR Fibrinogen dRVVT Confirm Interp Factor V Activity POC ABG pH POC ABG pCO2 POC ABG pO2 Sodium Potassium Chloride Carbon Dioxide BUN Creatinine Glucose POC Glucose 160 H 245 H 121 H Lactic Acid Calcium Phosphorus Magnesium Direct Bilirubin AST ALT Alkaline Phosphatase Lactate Dehydrogenase Troponin T C-Reactive Protein Total Protein Albumin Prealbumin Triglycerides Cholesterol LDL Cholesterol Direct HDL Cholesterol Urine pH Urine WBC (Auto) Urine Creatinine Urine Total Protein Vancomycin Trough Rheumatoid Factor Complement C4 Miscellaneous Test Crossmatch 09/20/16 09/20/16 09/20/16 04:10 04:10 04:10 WBC 17.0 H RBC 3.21 L Hgb 8.2 L Hct 25.5 L MCV MCH 26 L MCHC RDW 20.9 H Plt Count Lymph % (Auto) [place] % (Auto) Lymph # Oliver # Baso # Seg Neutrophils % Seg Neuts % (Manual) Lymphocytes % (Manual) Monocytes % (Manual) Eosinophils % (Manual) Basophils % (Manual) Nucleated RBC % Seg Neutrophils # Seg Neutrophils # Man Lymphocytes # (Manual) Monocytes # (Manual) Eosinophils # (Manual) PT INR Fibrinogen dRVVT Confirm Interp Factor V Activity POC ABG pH POC ABG pCO2 POC ABG pO2 Sodium Potassium Chloride 111.0 H Carbon Dioxide 16 L BUN 129 H Creatinine 3.7 H Glucose 115 H POC Glucose Lactic Acid Calcium 8.2 L Phosphorus Magnesium Direct Bilirubin AST ALT Alkaline Phosphatase Lactate Dehydrogenase Troponin T C-Reactive Protein Total Protein Albumin Prealbumin Triglycerides 243 H Cholesterol LDL Cholesterol Direct HDL Cholesterol Urine pH Urine WBC (Auto) Urine Creatinine Urine Total Protein Vancomycin Trough Rheumatoid Factor Complement C4 Miscellaneous Test Crossmatch 09/20/16 09/20/16 09/20/16 05:40 11:52 16:50 WBC RBC Hgb Hct MCV MCH MCHC RDW Plt Count Lymph % (Auto) [place] % (Auto) Lymph # Oliver # Baso # Seg Neutrophils % Seg Neuts % (Manual) Lymphocytes % (Manual) Monocytes % (Manual) Eosinophils % (Manual) Basophils % (Manual) Nucleated RBC % Seg Neutrophils # Seg Neutrophils # Man Lymphocytes # (Manual) Monocytes # (Manual) Eosinophils # (Manual) PT INR Fibrinogen dRVVT Confirm Interp Factor V Activity POC ABG pH POC ABG pCO2 POC ABG pO2 Sodium Potassium Chloride Carbon Dioxide BUN Creatinine Glucose POC Glucose 131 H 183 H 236 H Lactic Acid Calcium Phosphorus Magnesium Direct Bilirubin AST ALT Alkaline Phosphatase Lactate Dehydrogenase Troponin T C-Reactive Protein Total Protein Albumin Prealbumin Triglycerides Cholesterol LDL Cholesterol Direct HDL Cholesterol Urine pH Urine WBC (Auto) Urine Creatinine Urine Total Protein Vancomycin Trough Rheumatoid Factor Complement C4 Miscellaneous Test Crossmatch 09/20/16 09/21/16 09/21/16 23:51 03:30 04:44 WBC RBC Hgb Hct MCV MCH MCHC RDW Plt Count Lymph % (Auto) [place] % (Auto) Lymph # Oliver # Baso # Seg Neutrophils % Seg Neuts % (Manual) Lymphocytes % (Manual) Monocytes % (Manual) Eosinophils % (Manual) Basophils % (Manual) Nucleated RBC % Seg Neutrophils # Seg Neutrophils # Man Lymphocytes # (Manual) Monocytes # (Manual) Eosinophils # (Manual) PT INR Fibrinogen dRVVT Confirm Interp Factor V Activity POC ABG pH POC ABG pCO2 POC ABG pO2 Sodium Potassium Chloride Carbon Dioxide BUN Creatinine Glucose POC Glucose 114 H 141 H Lactic Acid Calcium Phosphorus Magnesium 2.70 H Direct Bilirubin AST ALT Alkaline Phosphatase Lactate Dehydrogenase Troponin T C-Reactive Protein Total Protein Albumin Prealbumin Triglycerides Cholesterol LDL Cholesterol Direct HDL Cholesterol Urine pH Urine WBC (Auto) Urine Creatinine Urine Total Protein Vancomycin Trough Rheumatoid Factor Complement C4 Miscellaneous Test Crossmatch 09/21/16 09/21/16 09/21/16 07:45 07:45 10:01 WBC 13.8 H RBC 2.94 L Hgb 7.5 L Hct 23.5 L MCV MCH 26 L MCHC RDW 21.2 H Plt Count Lymph % (Auto) 6.9 L Oliver % (Auto) 9.4 H Lymph # 0.9 L Oliver # 1.3 H Baso # Seg Neutrophils % 83.2 H Seg Neuts % (Manual) Lymphocytes % (Manual) Monocytes % (Manual) Eosinophils % (Manual) Basophils % (Manual) Nucleated RBC % Seg Neutrophils # 11.5 H Seg Neutrophils # Man Lymphocytes # (Manual) Monocytes # (Manual) Eosinophils # (Manual) PT INR Fibrinogen dRVVT Confirm Interp Factor V Activity POC ABG pH 7.308 L POC ABG pCO2 31.9 L POC ABG pO2 148 H Sodium 147 H Potassium Chloride 114.2 H Carbon Dioxide 15 L BUN 120 H Creatinine 3.9 H Glucose 156 H POC Glucose Lactic Acid Calcium 8.2 L Phosphorus Magnesium Direct Bilirubin AST ALT Alkaline Phosphatase Lactate Dehydrogenase Troponin T C-Reactive Protein Total Protein Albumin Prealbumin Triglycerides Cholesterol LDL Cholesterol Direct HDL Cholesterol Urine pH Urine WBC (Auto) Urine Creatinine Urine Total Protein Vancomycin Trough Rheumatoid Factor Complement C4 Miscellaneous Test Crossmatch 09/21/16 09/21/16 09/21/16 12:00 12:03 13:00 WBC RBC Hgb Hct MCV MCH MCHC RDW Plt Count Lymph % (Auto) [place] % (Auto) Lymph # [place] # Baso # Seg Neutrophils % Seg Neuts % (Manual) Lymphocytes % (Manual) Monocytes % (Manual) Eosinophils % (Manual) Basophils % (Manual) Nucleated RBC % Seg Neutrophils # Seg Neutrophils # Man Lymphocytes # (Manual) Monocytes # (Manual) Eosinophils # (Manual) PT INR Fibrinogen dRVVT Confirm Interp Factor V Activity POC ABG pH POC ABG pCO2 POC ABG pO2 Sodium Potassium Chloride Carbon Dioxide BUN Creatinine Glucose POC Glucose 163 H Lactic Acid Calcium Phosphorus Magnesium Direct Bilirubin AST ALT Alkaline Phosphatase Lactate Dehydrogenase Troponin T C-Reactive Protein Total Protein Albumin Prealbumin Triglycerides Cholesterol LDL Cholesterol Direct HDL Cholesterol Urine pH Urine WBC (Auto) Urine Creatinine 54.8 H Urine Total Protein Vancomycin Trough 2.3 L Rheumatoid Factor Complement C4 Miscellaneous Test Crossmatch 09/21/16 09/21/16 09/22/16 16:51 23:17 06:27 WBC RBC Hgb Hct MCV MCH MCHC RDW Plt Count Lymph % (Auto) [place] % (Auto) Lymph # [place] # Baso # Seg Neutrophils % Seg Neuts % (Manual) Lymphocytes % (Manual) Monocytes % (Manual) Eosinophils % (Manual) Basophils % (Manual) Nucleated RBC % Seg Neutrophils # Seg Neutrophils # Man Lymphocytes # (Manual) Monocytes # (Manual) Eosinophils # (Manual) PT INR Fibrinogen dRVVT Confirm Interp Factor V Activity POC ABG pH POC ABG pCO2 POC ABG pO2 Sodium Potassium Chloride Carbon Dioxide BUN Creatinine Glucose POC Glucose 206 H 114 H 115 H Lactic Acid Calcium Phosphorus Magnesium Direct Bilirubin AST ALT Alkaline Phosphatase Lactate Dehydrogenase Troponin T C-Reactive Protein Total Protein Albumin Prealbumin Triglycerides Cholesterol LDL Cholesterol Direct HDL Cholesterol Urine pH Urine WBC (Auto) Urine Creatinine Urine Total Protein Vancomycin Trough Rheumatoid Factor Complement C4 Miscellaneous Test Crossmatch 09/22/16 09/22/16 09/22/16 07:50 07:50 12:00 WBC 17.8 H RBC 3.04 L Hgb 8.0 L Hct 24.7 L MCV MCH 26 L MCHC RDW 21.6 H Plt Count Lymph % (Auto) [place] % (Auto) Lymph # Oliver # Baso # Seg Neutrophils % Seg Neuts % (Manual) Lymphocytes % (Manual) Monocytes % (Manual) Eosinophils % (Manual) Basophils % (Manual) Nucleated RBC % Seg Neutrophils # Seg Neutrophils # Man Lymphocytes # (Manual) Monocytes # (Manual) Eosinophils # (Manual) PT INR Fibrinogen dRVVT Confirm Interp Factor V Activity POC ABG pH POC ABG pCO2 POC ABG pO2 Sodium 150 H Potassium Chloride 118.2 H Carbon Dioxide 14 L BUN 111 H Creatinine 3.7 H Glucose 157 H POC Glucose 183 H Lactic Acid Calcium Phosphorus Magnesium Direct Bilirubin AST ALT Alkaline Phosphatase Lactate Dehydrogenase Troponin T C-Reactive Protein Total Protein Albumin Prealbumin Triglycerides Cholesterol LDL Cholesterol Direct HDL Cholesterol Urine pH Urine WBC (Auto) Urine Creatinine Urine Total Protein Vancomycin Trough Rheumatoid Factor Complement C4 Miscellaneous Test Crossmatch 09/22/16 09/22/16 09/23/16 17:29 23:10 05:00 WBC 19.2 H RBC 3.13 L Hgb 8.0 L Hct 25.2 L MCV MCH 26 L MCHC RDW 22.1 H Plt Count Lymph % (Auto) [place] % (Auto) Lymph # Oliver # Baso # Seg Neutrophils % Seg Neuts % (Manual) 92.0 H Lymphocytes % (Manual) 3.0 L Monocytes % (Manual) Eosinophils % (Manual) Basophils % (Manual) Nucleated RBC % Seg Neutrophils # Seg Neutrophils # Man 17.7 H Lymphocytes # (Manual) 0.6 L Monocytes # (Manual) Eosinophils # (Manual) PT INR Fibrinogen dRVVT Confirm Interp Factor V Activity POC ABG pH POC ABG pCO2 POC ABG pO2 Sodium Potassium Chloride Carbon Dioxide BUN Creatinine Glucose POC Glucose 197 H 169 H Lactic Acid Calcium Phosphorus Magnesium Direct Bilirubin AST ALT Alkaline Phosphatase Lactate Dehydrogenase Troponin T C-Reactive Protein Total Protein Albumin Prealbumin Triglycerides Cholesterol LDL Cholesterol Direct HDL Cholesterol Urine pH Urine WBC (Auto) Urine Creatinine Urine Total Protein Vancomycin Trough Rheumatoid Factor Complement C4 Miscellaneous Test Crossmatch 09/23/16 09/23/16 09/23/16 05:00 05:00 05:10 WBC RBC Hgb Hct MCV MCH MCHC RDW Plt Count Lymph % (Auto) [place] % (Auto) Lymph # [place] # Baso # Seg Neutrophils % Seg Neuts % (Manual) Lymphocytes % (Manual) Monocytes % (Manual) Eosinophils % (Manual) Basophils % (Manual) Nucleated RBC % Seg Neutrophils # Seg Neutrophils # Man Lymphocytes # (Manual) Monocytes # (Manual) Eosinophils # (Manual) PT INR Fibrinogen dRVVT Confirm Interp Factor V Activity POC ABG pH POC ABG pCO2 POC ABG pO2 Sodium 147 H Potassium 3.2 L Chloride 115.7 H Carbon Dioxide 13 L BUN 111 H Creatinine 3.8 H Glucose 194 H POC Glucose 188 H Lactic Acid Calcium 7.3 L D Phosphorus Magnesium Direct Bilirubin AST ALT Alkaline Phosphatase Lactate Dehydrogenase Troponin T C-Reactive Protein 3.20 H Total Protein Albumin Prealbumin Triglycerides Cholesterol LDL Cholesterol Direct HDL Cholesterol Urine pH Urine WBC (Auto) Urine Creatinine Urine Total Protein Vancomycin Trough Rheumatoid Factor Complement C4 Miscellaneous Test Crossmatch 09/23/16 09/23/16 09/23/16 11:37 12:29 18:01 WBC RBC Hgb Hct MCV MCH MCHC RDW Plt Count Lymph % (Auto) [place] % (Auto) Lymph # [place] # Baso # Seg Neutrophils % Seg Neuts % (Manual) Lymphocytes % (Manual) Monocytes % (Manual) Eosinophils % (Manual) Basophils % (Manual) Nucleated RBC % Seg Neutrophils # Seg Neutrophils # Man Lymphocytes # (Manual) Monocytes # (Manual) Eosinophils # (Manual) PT INR Fibrinogen dRVVT Confirm Interp Factor V Activity POC ABG pH POC ABG pCO2 18.9 L POC ABG pO2 143 H Sodium Potassium Chloride Carbon Dioxide BUN Creatinine Glucose POC Glucose 153 H 108 H Lactic Acid Calcium Phosphorus Magnesium Direct Bilirubin AST ALT Alkaline Phosphatase Lactate Dehydrogenase Troponin T C-Reactive Protein Total Protein Albumin Prealbumin Triglycerides Cholesterol LDL Cholesterol Direct HDL Cholesterol Urine pH Urine WBC (Auto) Urine Creatinine Urine Total Protein Vancomycin Trough Rheumatoid Factor Complement C4 Miscellaneous Test Crossmatch 09/23/16 09/23/16 09/24/16 21:19 23:43 05:16 WBC RBC Hgb Hct MCV MCH MCHC RDW Plt Count Lymph % (Auto) [place] % (Auto) Lymph # [place] # Baso # Seg Neutrophils % Seg Neuts % (Manual) Lymphocytes % (Manual) Monocytes % (Manual) Eosinophils % (Manual) Basophils % (Manual) Nucleated RBC % Seg Neutrophils # Seg Neutrophils # Man Lymphocytes # (Manual) Monocytes # (Manual) Eosinophils # (Manual) PT INR Fibrinogen dRVVT Confirm Interp Factor V Activity POC ABG pH POC ABG pCO2 17.3 L POC ABG pO2 112 H Sodium Potassium Chloride Carbon Dioxide BUN Creatinine Glucose POC Glucose 143 H 164 H Lactic Acid Calcium Phosphorus Magnesium Direct Bilirubin AST ALT Alkaline Phosphatase Lactate Dehydrogenase Troponin T C-Reactive Protein Total Protein Albumin Prealbumin Triglycerides Cholesterol LDL Cholesterol Direct HDL Cholesterol Urine pH Urine WBC (Auto) Urine Creatinine Urine Total Protein Vancomycin Trough Rheumatoid Factor Complement C4 Miscellaneous Test Crossmatch 09/24/16 09/24/16 09/24/16 05:21 11:58 17:06 WBC RBC Hgb Hct MCV MCH MCHC RDW Plt Count Lymph % (Auto) [place] % (Auto) Lymph # [place] # Baso # Seg Neutrophils % Seg Neuts % (Manual) Lymphocytes % (Manual) Monocytes % (Manual) Eosinophils % (Manual) Basophils % (Manual) Nucleated RBC % Seg Neutrophils # Seg Neutrophils # Man Lymphocytes # (Manual) Monocytes # (Manual) Eosinophils # (Manual) PT INR Fibrinogen dRVVT Confirm Interp Factor V Activity POC ABG pH POC ABG pCO2 POC ABG pO2 Sodium Potassium Chloride Carbon Dioxide 10 L BUN 103 H Creatinine 4.3 H Glucose 163 H POC Glucose 173 H 167 H Lactic Acid Calcium 6.5 L Phosphorus Magnesium Direct Bilirubin AST ALT Alkaline Phosphatase Lactate Dehydrogenase Troponin T C-Reactive Protein Total Protein Albumin Prealbumin Triglycerides Cholesterol LDL Cholesterol Direct HDL Cholesterol Urine pH Urine WBC (Auto) Urine Creatinine Urine Total Protein Vancomycin Trough Rheumatoid Factor Complement C4 Miscellaneous Test Crossmatch 09/24/16 09/24/16 09/24/16 20:15 21:02 23:48 WBC RBC Hgb Hct MCV MCH MCHC RDW Plt Count Lymph % (Auto) [place] % (Auto) Lymph # [place] # Baso # Seg Neutrophils % Seg Neuts % (Manual) Lymphocytes % (Manual) Monocytes % (Manual) Eosinophils % (Manual) Basophils % (Manual) Nucleated RBC % Seg Neutrophils # Seg Neutrophils # Man Lymphocytes # (Manual) Monocytes # (Manual) Eosinophils # (Manual) PT INR Fibrinogen dRVVT Confirm Interp Factor V Activity POC ABG pH 7.288 L POC ABG pCO2 30.2 L 21.5 L POC ABG pO2 32 L 39 L Sodium Potassium Chloride Carbon Dioxide BUN Creatinine Glucose POC Glucose 109 H Lactic Acid Calcium Phosphorus Magnesium Direct Bilirubin AST ALT Alkaline Phosphatase Lactate Dehydrogenase Troponin T C-Reactive Protein Total Protein Albumin Prealbumin Triglycerides Cholesterol LDL Cholesterol Direct HDL Cholesterol Urine pH Urine WBC (Auto) Urine Creatinine Urine Total Protein Vancomycin Trough Rheumatoid Factor Complement C4 Miscellaneous Test Crossmatch 09/25/16 09/25/16 09/25/16 04:20 04:20 04:20 WBC RBC 2.58 L Hgb 7.0 L Hct 21.0 L MCV MCH 27 L MCHC RDW 23.8 H Plt Count Lymph % (Auto) [place] % (Auto) Lymph # Oliver # Baso # Seg Neutrophils % Seg Neuts % (Manual) Lymphocytes % (Manual) 12.0 L Monocytes % (Manual) Eosinophils % (Manual) 7.0 H Basophils % (Manual) 2.0 H Nucleated RBC % Seg Neutrophils # Seg Neutrophils # Man Lymphocytes # (Manual) 0.9 L Monocytes # (Manual) Eosinophils # (Manual) 0.5 H PT INR Fibrinogen dRVVT Confirm Interp Factor V Activity POC ABG pH POC ABG pCO2 POC ABG pO2 Sodium Potassium Chloride Carbon Dioxide 15 L BUN 72 H Creatinine 3.8 H Glucose POC Glucose Lactic Acid Calcium 6.0 L Phosphorus 4.60 H Magnesium 1.60 L Direct Bilirubin AST ALT Alkaline Phosphatase Lactate Dehydrogenase Troponin T C-Reactive Protein Total Protein Albumin Prealbumin Triglycerides Cholesterol LDL Cholesterol Direct HDL Cholesterol Urine pH Urine WBC (Auto) Urine Creatinine Urine Total Protein Vancomycin Trough Rheumatoid Factor Complement C4 Miscellaneous Test Crossmatch 09/25/16 09/25/16 09/25/16 04:57 08:02 10:30 WBC RBC Hgb Hct MCV MCH MCHC RDW Plt Count Lymph % (Auto) [place] % (Auto) Lymph # [place] # Baso # Seg Neutrophils % Seg Neuts % (Manual) Lymphocytes % (Manual) Monocytes % (Manual) Eosinophils % (Manual) Basophils % (Manual) Nucleated RBC % Seg Neutrophils # Seg Neutrophils # Man Lymphocytes # (Manual) Monocytes # (Manual) Eosinophils # (Manual) PT INR Fibrinogen dRVVT Confirm Interp Factor V Activity POC ABG pH POC ABG pCO2 24.7 L POC ABG pO2 152 H Sodium Potassium Chloride Carbon Dioxide BUN Creatinine Glucose POC Glucose 113 H Lactic Acid Calcium Phosphorus Magnesium Direct Bilirubin AST ALT Alkaline Phosphatase Lactate Dehydrogenase Troponin T C-Reactive Protein Total Protein Albumin Prealbumin Triglycerides Cholesterol LDL Cholesterol Direct HDL Cholesterol Urine pH Urine WBC (Auto) Urine Creatinine Urine Total Protein Vancomycin Trough Rheumatoid Factor Complement C4 Miscellaneous Test Crossmatch See Detail 09/25/16 09/25/16 09/25/16 12:05 17:44 23:47 WBC RBC Hgb Hct MCV MCH MCHC RDW Plt Count Lymph % (Auto) [place] % (Auto) Lymph # [place] # Baso # Seg Neutrophils % Seg Neuts % (Manual) Lymphocytes % (Manual) Monocytes % (Manual) Eosinophils % (Manual) Basophils % (Manual) Nucleated RBC % Seg Neutrophils # Seg Neutrophils # Man Lymphocytes # (Manual) Monocytes # (Manual) Eosinophils # (Manual) PT INR Fibrinogen dRVVT Confirm Interp Factor V Activity POC ABG pH POC ABG pCO2 POC ABG pO2 Sodium Potassium Chloride Carbon Dioxide BUN Creatinine Glucose POC Glucose 117 H 119 H 150 H Lactic Acid Calcium Phosphorus Magnesium Direct Bilirubin AST ALT Alkaline Phosphatase Lactate Dehydrogenase Troponin T C-Reactive Protein Total Protein Albumin Prealbumin Triglycerides Cholesterol LDL Cholesterol Direct HDL Cholesterol Urine pH Urine WBC (Auto) Urine Creatinine Urine Total Protein Vancomycin Trough Rheumatoid Factor Complement C4 Miscellaneous Test Crossmatch 09/26/16 09/26/16 09/26/16 04:25 04:25 04:25 WBC RBC 2.65 L Hgb 7.4 L Hct 21.6 L MCV MCH MCHC RDW 22.5 H Plt Count Lymph % (Auto) [place] % (Auto) Lymph # Oliver # Baso # Seg Neutrophils % Seg Neuts % (Manual) Lymphocytes % (Manual) 6.0 L Monocytes % (Manual) Eosinophils % (Manual) 11.0 H Basophils % (Manual) Nucleated RBC % Seg Neutrophils # Seg Neutrophils # Man Lymphocytes # (Manual) 0.4 L Monocytes # (Manual) Eosinophils # (Manual) 0.6 H PT INR Fibrinogen dRVVT Confirm Interp Factor V Activity POC ABG pH POC ABG pCO2 POC ABG pO2 Sodium Potassium Chloride 97.0 L Carbon Dioxide 19 L BUN 43 H Creatinine 2.6 H Glucose 130 H POC Glucose Lactic Acid 4.40 H* Calcium 6.7 L Phosphorus Magnesium Direct Bilirubin AST ALT Alkaline Phosphatase Lactate Dehydrogenase Troponin T C-Reactive Protein Total Protein Albumin Prealbumin Triglycerides Cholesterol LDL Cholesterol Direct HDL Cholesterol Urine pH Urine WBC (Auto) Urine Creatinine Urine Total Protein Vancomycin Trough Rheumatoid Factor Complement C4 Miscellaneous Test Crossmatch 09/26/16 09/26/16 09/26/16 05:20 11:44 12:12 WBC RBC Hgb Hct MCV MCH MCHC RDW Plt Count Lymph % (Auto) [place] % (Auto) Lymph # [place] # Baso # Seg Neutrophils % Seg Neuts % (Manual) Lymphocytes % (Manual) Monocytes % (Manual) Eosinophils % (Manual) Basophils % (Manual) Nucleated RBC % Seg Neutrophils # Seg Neutrophils # Man Lymphocytes # (Manual) Monocytes # (Manual) Eosinophils # (Manual) PT INR Fibrinogen dRVVT Confirm Interp Factor V Activity POC ABG pH POC ABG pCO2 27.0 L POC ABG pO2 69 L Sodium Potassium Chloride Carbon Dioxide BUN Creatinine Glucose POC Glucose 121 H 128 H Lactic Acid Calcium Phosphorus Magnesium Direct Bilirubin AST ALT Alkaline Phosphatase Lactate Dehydrogenase Troponin T C-Reactive Protein Total Protein Albumin Prealbumin Triglycerides Cholesterol LDL Cholesterol Direct HDL Cholesterol Urine pH Urine WBC (Auto) Urine Creatinine Urine Total Protein Vancomycin Trough Rheumatoid Factor Complement C4 Miscellaneous Test Crossmatch 09/26/16 09/26/16 09/27/16 18:31 23:40 08:20 WBC RBC Hgb Hct MCV MCH MCHC RDW Plt Count Lymph % (Auto) [place] % (Auto) Lymph # [place] # Baso # Seg Neutrophils % Seg Neuts % (Manual) Lymphocytes % (Manual) Monocytes % (Manual) Eosinophils % (Manual) Basophils % (Manual) Nucleated RBC % Seg Neutrophils # Seg Neutrophils # Man Lymphocytes # (Manual) Monocytes # (Manual) Eosinophils # (Manual) PT INR Fibrinogen dRVVT Confirm Interp Factor V Activity POC ABG pH POC ABG pCO2 POC ABG pO2 Sodium Potassium Chloride Carbon Dioxide BUN Creatinine Glucose POC Glucose 120 H 133 H Lactic Acid 4.10 H* Calcium Phosphorus Magnesium Direct Bilirubin AST ALT Alkaline Phosphatase Lactate Dehydrogenase Troponin T C-Reactive Protein Total Protein Albumin Prealbumin Triglycerides Cholesterol LDL Cholesterol Direct HDL Cholesterol Urine pH Urine WBC (Auto) Urine Creatinine Urine Total Protein Vancomycin Trough Rheumatoid Factor Complement C4 Miscellaneous Test Crossmatch 09/27/16 09/27/16 09/27/16 11:23 15:00 18:15 WBC RBC Hgb Hct MCV MCH MCHC RDW Plt Count Lymph % (Auto) [place] % (Auto) Lymph # [place] # Baso # Seg Neutrophils % Seg Neuts % (Manual) Lymphocytes % (Manual) Monocytes % (Manual) Eosinophils % (Manual) Basophils % (Manual) Nucleated RBC % Seg Neutrophils # Seg Neutrophils # Man Lymphocytes # (Manual) Monocytes # (Manual) Eosinophils # (Manual) PT INR Fibrinogen dRVVT Confirm Interp Factor V Activity POC ABG pH 7.459 H POC ABG pCO2 27.1 L POC ABG pO2 140 H Sodium Potassium Chloride Carbon Dioxide BUN Creatinine Glucose POC Glucose 114 H 127 H Lactic Acid Calcium Phosphorus Magnesium Direct Bilirubin AST ALT Alkaline Phosphatase Lactate Dehydrogenase Troponin T C-Reactive Protein Total Protein Albumin Prealbumin Triglycerides Cholesterol LDL Cholesterol Direct HDL Cholesterol Urine pH Urine WBC (Auto) Urine Creatinine Urine Total Protein Vancomycin Trough Rheumatoid Factor Complement C4 Miscellaneous Test Crossmatch 09/27/16 09/27/16 09/28/16 Unknown Unknown 03:45 WBC RBC 2.49 L Hgb 6.8 L Hct 20.7 L MCV MCH 27 L MCHC RDW 22.1 H Plt Count Lymph % (Auto) [place] % (Auto) Lymph # [place] # Baso # Seg Neutrophils % Seg Neuts % (Manual) 32.0 L Lymphocytes % (Manual) 12.0 L Monocytes % (Manual) 11.0 H Eosinophils % (Manual) 10.0 H Basophils % (Manual) Nucleated RBC % Seg Neutrophils # Seg Neutrophils # Man Lymphocytes # (Manual) 1.0 L Monocytes # (Manual) 0.9 H Eosinophils # (Manual) 0.8 H PT INR Fibrinogen dRVVT Confirm Interp Factor V Activity POC ABG pH POC ABG pCO2 POC ABG pO2 Sodium 135 L 135 L Potassium 3.5 L Chloride 93.6 L 94.4 L Carbon Dioxide 17 L 21 L BUN 45 H 28 H Creatinine 3.3 H 2.5 H Glucose 106 H POC Glucose Lactic Acid Calcium 7.3 L 7.1 L Phosphorus Magnesium Direct Bilirubin AST ALT Alkaline Phosphatase Lactate Dehydrogenase Troponin T C-Reactive Protein Total Protein Albumin Prealbumin Triglycerides Cholesterol LDL Cholesterol Direct HDL Cholesterol Urine pH Urine WBC (Auto) Urine Creatinine Urine Total Protein Vancomycin Trough Rheumatoid Factor Complement C4 Miscellaneous Test Crossmatch 09/28/16 09/28/16 09/28/16 03:45 07:25 11:58 WBC 13.3 H RBC 3.01 L Hgb 8.4 L Hct 25.0 L MCV MCH MCHC RDW 20.5 H Plt Count 128 L Lymph % (Auto) [place] % (Auto) Lymph # [place] # Baso # Seg Neutrophils % Seg Neuts % (Manual) Lymphocytes % (Manual) 7.0 L Monocytes % (Manual) Eosinophils % (Manual) 6.0 H Basophils % (Manual) Nucleated RBC % Seg Neutrophils # Seg Neutrophils # Man Lymphocytes # (Manual) 0.9 L Monocytes # (Manual) Eosinophils # (Manual) 0.8 H PT INR Fibrinogen dRVVT Confirm Interp Factor V Activity POC ABG pH POC ABG pCO2 POC ABG pO2 Sodium Potassium Chloride Carbon Dioxide BUN Creatinine Glucose POC Glucose 121 H Lactic Acid 4.50 H* Calcium Phosphorus Magnesium Direct Bilirubin AST ALT Alkaline Phosphatase Lactate Dehydrogenase Troponin T C-Reactive Protein Total Protein Albumin Prealbumin Triglycerides Cholesterol LDL Cholesterol Direct HDL Cholesterol Urine pH Urine WBC (Auto) Urine Creatinine Urine Total Protein Vancomycin Trough Rheumatoid Factor Complement C4 Miscellaneous Test Crossmatch 09/29/16 09/29/16 09/29/16 06:45 06:45 06:45 WBC 14.9 H RBC 2.74 L Hgb 7.6 L Hct 23.2 L MCV MCH MCHC RDW 20.5 H Plt Count 81 L Lymph % (Auto) [place] % (Auto) Lymph # Oliver # Baso # Seg Neutrophils % Seg Neuts % (Manual) 81.0 H Lymphocytes % (Manual) 4.0 L Monocytes % (Manual) Eosinophils % (Manual) Basophils % (Manual) Nucleated RBC % Seg Neutrophils # Seg Neutrophils # Man 12.1 H Lymphocytes # (Manual) 0.6 L Monocytes # (Manual) Eosinophils # (Manual) PT INR Fibrinogen dRVVT Confirm Interp Factor V Activity POC ABG pH POC ABG pCO2 POC ABG pO2 Sodium 133 L Potassium 3.4 L Chloride 92.5 L Carbon Dioxide 21 L BUN 33 H Creatinine 3.0 H Glucose POC Glucose Lactic Acid Calcium 6.6 L Phosphorus Magnesium 1.40 L Direct Bilirubin 0.9 H AST ALT Alkaline Phosphatase Lactate Dehydrogenase Troponin T C-Reactive Protein Total Protein 4.3 L Albumin 1.3 L Prealbumin Triglycerides Cholesterol LDL Cholesterol Direct HDL Cholesterol Urine pH Urine WBC (Auto) Urine Creatinine Urine Total Protein Vancomycin Trough Rheumatoid Factor Complement C4 Miscellaneous Test Crossmatch 09/29/16 09/29/16 09/30/16 17:52 20:12 00:07 WBC RBC Hgb Hct MCV MCH MCHC RDW Plt Count Lymph % (Auto) [place] % (Auto) Lymph # [place] # Baso # Seg Neutrophils % Seg Neuts % (Manual) Lymphocytes % (Manual) Monocytes % (Manual) Eosinophils % (Manual) Basophils % (Manual) Nucleated RBC % Seg Neutrophils # Seg Neutrophils # Man Lymphocytes # (Manual) Monocytes # (Manual) Eosinophils # (Manual) PT INR Fibrinogen dRVVT Confirm Interp Factor V Activity POC ABG pH POC ABG pCO2 POC ABG pO2 Sodium Potassium Chloride Carbon Dioxide BUN Creatinine Glucose POC Glucose 50 L 51 L Lactic Acid Calcium Phosphorus Magnesium Direct Bilirubin AST ALT Alkaline Phosphatase Lactate Dehydrogenase Troponin T 0.204 H* C-Reactive Protein Total Protein Albumin Prealbumin Triglycerides Cholesterol 31 L LDL Cholesterol Direct 4 L HDL Cholesterol 3 L Urine pH Urine WBC (Auto) Urine Creatinine Urine Total Protein Vancomycin Trough Rheumatoid Factor Complement C4 Miscellaneous Test Crossmatch 09/30/16 09/30/16 09/30/16 01:30 05:15 06:10 WBC RBC Hgb Hct MCV MCH MCHC RDW Plt Count Lymph % (Auto) [place] % (Auto) Lymph # Oliver # Baso # Seg Neutrophils % Seg Neuts % (Manual) Lymphocytes % (Manual) Monocytes % (Manual) Eosinophils % (Manual) Basophils % (Manual) Nucleated RBC % Seg Neutrophils # Seg Neutrophils # Man Lymphocytes # (Manual) Monocytes # (Manual) Eosinophils # (Manual) PT INR Fibrinogen dRVVT Confirm Interp Factor V Activity POC ABG pH POC ABG pCO2 POC ABG pO2 Sodium 133 L Potassium 3.2 L Chloride 93.2 L Carbon Dioxide 19 L BUN 36 H Creatinine 3.2 H Glucose 104 H POC Glucose 167 H 146 H Lactic Acid Calcium 6.4 L Phosphorus Magnesium 1.60 L Direct Bilirubin AST ALT Alkaline Phosphatase Lactate Dehydrogenase Troponin T C-Reactive Protein Total Protein Albumin Prealbumin Triglycerides Cholesterol LDL Cholesterol Direct HDL Cholesterol Urine pH Urine WBC (Auto) Urine Creatinine Urine Total Protein Vancomycin Trough Rheumatoid Factor Complement C4 Miscellaneous Test Crossmatch 09/30/16 09/30/16 09/30/16 11:26 13:39 18:38 WBC RBC Hgb Hct MCV MCH MCHC RDW Plt Count Lymph % (Auto) [place] % (Auto) Lymph # Oliver # Baso # Seg Neutrophils % Seg Neuts % (Manual) Lymphocytes % (Manual) Monocytes % (Manual) Eosinophils % (Manual) Basophils % (Manual) Nucleated RBC % Seg Neutrophils # Seg Neutrophils # Man Lymphocytes # (Manual) Monocytes # (Manual) Eosinophils # (Manual) PT INR Fibrinogen dRVVT Confirm Interp Factor V Activity POC ABG pH 7.479 H POC ABG pCO2 29.8 L POC ABG pO2 117 H Sodium Potassium Chloride Carbon Dioxide BUN Creatinine Glucose POC Glucose 140 H 122 H Lactic Acid Calcium Phosphorus Magnesium Direct Bilirubin AST ALT Alkaline Phosphatase Lactate Dehydrogenase Troponin T C-Reactive Protein Total Protein Albumin Prealbumin Triglycerides Cholesterol LDL Cholesterol Direct HDL Cholesterol Urine pH Urine WBC (Auto) Urine Creatinine Urine Total Protein Vancomycin Trough Rheumatoid Factor Complement C4 Miscellaneous Test Crossmatch 10/01/16 10/01/16 10/01/16 06:00 06:00 12:37 WBC 12.6 H RBC 2.75 L Hgb 7.3 L Hct 23.3 L MCV MCH 27 L MCHC RDW 20.6 H Plt Count 72 L Lymph % (Auto) Oliver % (Auto) Lymph # Oliver # Baso # Seg Neutrophils % Seg Neuts % (Manual) 31.0 L Lymphocytes % (Manual) 8.0 L Monocytes % (Manual) Eosinophils % (Manual) Basophils % (Manual) Nucleated RBC % 3.0 H Seg Neutrophils # Seg Neutrophils # Man Lymphocytes # (Manual) 1.0 L Monocytes # (Manual) Eosinophils # (Manual) PT INR Fibrinogen dRVVT Confirm Interp Factor V Activity POC ABG pH POC ABG pCO2 POC ABG pO2 Sodium 127 L Potassium Chloride 86.8 L Carbon Dioxide 20 L BUN 42 H Creatinine 3.5 H Glucose POC Glucose 65 L Lactic Acid Calcium 7.0 L Phosphorus Magnesium Direct Bilirubin AST ALT Alkaline Phosphatase Lactate Dehydrogenase Troponin T C-Reactive Protein Total Protein Albumin Prealbumin Triglycerides Cholesterol LDL Cholesterol Direct HDL Cholesterol Urine pH Urine WBC (Auto) Urine Creatinine Urine Total Protein Vancomycin Trough Rheumatoid Factor Complement C4 Miscellaneous Test Crossmatch 10/01/16 10/01/16 10/02/16 17:39 23:32 00:59 WBC RBC Hgb Hct MCV MCH MCHC RDW Plt Count Lymph % (Auto) [place] % (Auto) Lymph # Oliver # Baso # Seg Neutrophils % Seg Neuts % (Manual) Lymphocytes % (Manual) Monocytes % (Manual) Eosinophils % (Manual) Basophils % (Manual) Nucleated RBC % Seg Neutrophils # Seg Neutrophils # Man Lymphocytes # (Manual) Monocytes # (Manual) Eosinophils # (Manual) PT INR Fibrinogen dRVVT Confirm Interp Factor V Activity POC ABG pH POC ABG pCO2 POC ABG pO2 Sodium Potassium Chloride Carbon Dioxide BUN Creatinine Glucose POC Glucose 107 H 52 L 145 H Lactic Acid Calcium Phosphorus Magnesium Direct Bilirubin AST ALT Alkaline Phosphatase Lactate Dehydrogenase Troponin T C-Reactive Protein Total Protein Albumin Prealbumin Triglycerides Cholesterol LDL Cholesterol Direct HDL Cholesterol Urine pH Urine WBC (Auto) Urine Creatinine Urine Total Protein Vancomycin Trough Rheumatoid Factor Complement C4 Miscellaneous Test Crossmatch 10/02/16 10/02/16 10/02/16 10:30 10:50 10:50 WBC 14.7 H RBC 2.76 L Hgb 7.4 L Hct 23.6 L MCV MCH 27 L MCHC RDW 20.2 H Plt Count 79 L Lymph % (Auto) [place] % (Auto) Lymph # Oliver # Baso # Seg Neutrophils % Seg Neuts % (Manual) 86.0 H Lymphocytes % (Manual) 6.0 L Monocytes % (Manual) Eosinophils % (Manual) Basophils % (Manual) Nucleated RBC % Seg Neutrophils # Seg Neutrophils # Man 12.6 H Lymphocytes # (Manual) 0.9 L Monocytes # (Manual) Eosinophils # (Manual) PT INR Fibrinogen dRVVT Confirm Interp Factor V Activity POC ABG pH 7.486 H POC ABG pCO2 30.1 L POC ABG pO2 108 H Sodium 131 L Potassium 3.4 L Chloride 89.9 L Carbon Dioxide BUN 26 H Creatinine 2.6 H Glucose POC Glucose Lactic Acid Calcium 7.0 L Phosphorus Magnesium Direct Bilirubin AST ALT Alkaline Phosphatase Lactate Dehydrogenase Troponin T C-Reactive Protein Total Protein Albumin Prealbumin Triglycerides Cholesterol LDL Cholesterol Direct HDL Cholesterol Urine pH Urine WBC (Auto) Urine Creatinine Urine Total Protein Vancomycin Trough Rheumatoid Factor Complement C4 Miscellaneous Test Crossmatch 10/02/16 10/03/16 10/03/16 23:45 00:45 05:10 WBC 12.9 H RBC 2.77 L Hgb 7.6 L Hct 23.7 L MCV MCH 27 L MCHC RDW 19.7 H Plt Count 89 L Lymph % (Auto) [place] % (Auto) Lymph # Oliver # Baso # Seg Neutrophils % Seg Neuts % (Manual) Lymphocytes % (Manual) 8.0 L Monocytes % (Manual) Eosinophils % (Manual) Basophils % (Manual) Nucleated RBC % Seg Neutrophils # 11.9 H Seg Neutrophils # Man Lymphocytes # (Manual) 1.0 L Monocytes # (Manual) Eosinophils # (Manual) PT INR Fibrinogen dRVVT Confirm Interp Factor V Activity POC ABG pH POC ABG pCO2 POC ABG pO2 Sodium Potassium Chloride Carbon Dioxide BUN Creatinine Glucose POC Glucose 55 L 199 H Lactic Acid Calcium Phosphorus Magnesium Direct Bilirubin AST ALT Alkaline Phosphatase Lactate Dehydrogenase Troponin T C-Reactive Protein Total Protein Albumin Prealbumin Triglycerides Cholesterol LDL Cholesterol Direct HDL Cholesterol Urine pH Urine WBC (Auto) Urine Creatinine Urine Total Protein Vancomycin Trough Rheumatoid Factor Complement C4 Miscellaneous Test Crossmatch 10/03/16 10/03/16 10/03/16 05:10 12:14 13:18 WBC RBC Hgb Hct MCV MCH MCHC RDW Plt Count Lymph % (Auto) [place] % (Auto) Lymph # [place] # Baso # Seg Neutrophils % Seg Neuts % (Manual) Lymphocytes % (Manual) Monocytes % (Manual) Eosinophils % (Manual) Basophils % (Manual) Nucleated RBC % Seg Neutrophils # Seg Neutrophils # Man Lymphocytes # (Manual) Monocytes # (Manual) Eosinophils # (Manual) PT INR Fibrinogen dRVVT Confirm Interp Factor V Activity POC ABG pH POC ABG pCO2 POC ABG pO2 Sodium 129 L Potassium 3.3 L Chloride 88.8 L Carbon Dioxide 20 L BUN 29 H Creatinine 2.8 H Glucose POC Glucose 68 L 127 H Lactic Acid Calcium 7.2 L Phosphorus Magnesium Direct Bilirubin AST ALT Alkaline Phosphatase Lactate Dehydrogenase Troponin T C-Reactive Protein Total Protein Albumin Prealbumin Triglycerides Cholesterol LDL Cholesterol Direct HDL Cholesterol Urine pH Urine WBC (Auto) Urine Creatinine Urine Total Protein Vancomycin Trough Rheumatoid Factor Complement C4 Miscellaneous Test Crossmatch 10/03/16 10/03/16 10/03/16 14:42 18:21 19:09 WBC RBC Hgb Hct MCV MCH MCHC RDW Plt Count Lymph % (Auto) [place] % (Auto) Lymph # [place] # Baso # Seg Neutrophils % Seg Neuts % (Manual) Lymphocytes % (Manual) Monocytes % (Manual) Eosinophils % (Manual) Basophils % (Manual) Nucleated RBC % Seg Neutrophils # Seg Neutrophils # Man Lymphocytes # (Manual) Monocytes # (Manual) Eosinophils # (Manual) PT INR Fibrinogen dRVVT Confirm Interp Factor V Activity POC ABG pH 7.499 H POC ABG pCO2 28.4 L POC ABG pO2 44 L Sodium Potassium Chloride Carbon Dioxide BUN Creatinine Glucose POC Glucose 64 L 205 H Lactic Acid Calcium Phosphorus Magnesium Direct Bilirubin AST ALT Alkaline Phosphatase Lactate Dehydrogenase Troponin T C-Reactive Protein Total Protein Albumin Prealbumin Triglycerides Cholesterol LDL Cholesterol Direct HDL Cholesterol Urine pH Urine WBC (Auto) Urine Creatinine Urine Total Protein Vancomycin Trough Rheumatoid Factor Complement C4 Miscellaneous Test Crossmatch 10/03/16 10/04/16 10/04/16 23:33 04:18 06:30 WBC RBC 2.54 L Hgb 7.1 L Hct 21.7 L MCV MCH MCHC RDW 19.5 H Plt Count 76 L Lymph % (Auto) [place] % (Auto) Lymph # Oliver # Baso # Seg Neutrophils % Seg Neuts % (Manual) 88.0 H Lymphocytes % (Manual) 6.0 L Monocytes % (Manual) Eosinophils % (Manual) Basophils % (Manual) Nucleated RBC % Seg Neutrophils # Seg Neutrophils # Man 8.8 H Lymphocytes # (Manual) 0.6 L Monocytes # (Manual) Eosinophils # (Manual) PT INR Fibrinogen dRVVT Confirm Interp Factor V Activity POC ABG pH 7.461 H POC ABG pCO2 33.6 L POC ABG pO2 211 H Sodium Potassium Chloride Carbon Dioxide BUN Creatinine Glucose POC Glucose 136 H Lactic Acid Calcium Phosphorus Magnesium Direct Bilirubin AST ALT Alkaline Phosphatase Lactate Dehydrogenase Troponin T C-Reactive Protein Total Protein Albumin Prealbumin Triglycerides Cholesterol LDL Cholesterol Direct HDL Cholesterol Urine pH Urine WBC (Auto) Urine Creatinine Urine Total Protein Vancomycin Trough Rheumatoid Factor Complement C4 Miscellaneous Test Crossmatch 10/04/16 10/04/16 10/04/16 06:30 11:45 17:54 WBC RBC Hgb Hct MCV MCH MCHC RDW Plt Count Lymph % (Auto) [place] % (Auto) Lymph # [place] # Baso # Seg Neutrophils % Seg Neuts % (Manual) Lymphocytes % (Manual) Monocytes % (Manual) Eosinophils % (Manual) Basophils % (Manual) Nucleated RBC % Seg Neutrophils # Seg Neutrophils # Man Lymphocytes # (Manual) Monocytes # (Manual) Eosinophils # (Manual) PT INR Fibrinogen dRVVT Confirm Interp Factor V Activity POC ABG pH POC ABG pCO2 POC ABG pO2 Sodium 128 L Potassium Chloride 87.4 L Carbon Dioxide 20 L BUN 34 H Creatinine 2.9 H Glucose 127 H POC Glucose 158 H 160 H Lactic Acid Calcium 7.4 L Phosphorus Magnesium Direct Bilirubin AST ALT Alkaline Phosphatase Lactate Dehydrogenase Troponin T C-Reactive Protein Total Protein Albumin Prealbumin Triglycerides Cholesterol LDL Cholesterol Direct HDL Cholesterol Urine pH Urine WBC (Auto) Urine Creatinine Urine Total Protein Vancomycin Trough Rheumatoid Factor Complement C4 Miscellaneous Test Crossmatch 10/04/16 10/05/16 10/05/16 23:25 04:30 05:00 WBC RBC 2.64 L Hgb 7.5 L Hct 22.6 L MCV MCH MCHC RDW 19.3 H Plt Count 80 L Lymph % (Auto) [place] % (Auto) Lymph # Oliver # Baso # Seg Neutrophils % Seg Neuts % (Manual) Lymphocytes % (Manual) 12.0 L Monocytes % (Manual) Eosinophils % (Manual) Basophils % (Manual) Nucleated RBC % Seg Neutrophils # Seg Neutrophils # Man Lymphocytes # (Manual) Monocytes # (Manual) Eosinophils # (Manual) PT INR Fibrinogen dRVVT Confirm Interp Factor V Activity POC ABG pH 7.475 H POC ABG pCO2 33.3 L POC ABG pO2 140 H Sodium Potassium Chloride Carbon Dioxide BUN Creatinine Glucose POC Glucose 141 H Lactic Acid Calcium Phosphorus Magnesium Direct Bilirubin AST ALT Alkaline Phosphatase Lactate Dehydrogenase Troponin T C-Reactive Protein Total Protein Albumin Prealbumin Triglycerides Cholesterol LDL Cholesterol Direct HDL Cholesterol Urine pH Urine WBC (Auto) Urine Creatinine Urine Total Protein Vancomycin Trough Rheumatoid Factor Complement C4 Miscellaneous Test Crossmatch 10/05/16 10/05/16 10/05/16 05:00 05:09 12:58 WBC RBC Hgb Hct MCV MCH MCHC RDW Plt Count Lymph % (Auto) [place] % (Auto) Lymph # [place] # Baso # Seg Neutrophils % Seg Neuts % (Manual) Lymphocytes % (Manual) Monocytes % (Manual) Eosinophils % (Manual) Basophils % (Manual) Nucleated RBC % Seg Neutrophils # Seg Neutrophils # Man Lymphocytes # (Manual) Monocytes # (Manual) Eosinophils # (Manual) PT INR Fibrinogen dRVVT Confirm Interp Factor V Activity POC ABG pH POC ABG pCO2 POC ABG pO2 Sodium 131 L Potassium Chloride 94.0 L Carbon Dioxide 20 L BUN 22 H Creatinine 2.0 H Glucose 123 H POC Glucose 166 H 179 H Lactic Acid Calcium 7.7 L Phosphorus 2.20 L D Magnesium Direct Bilirubin AST ALT Alkaline Phosphatase Lactate Dehydrogenase Troponin T C-Reactive Protein Total Protein Albumin Prealbumin Triglycerides Cholesterol LDL Cholesterol Direct HDL Cholesterol Urine pH Urine WBC (Auto) Urine Creatinine Urine Total Protein Vancomycin Trough Rheumatoid Factor Complement C4 Miscellaneous Test Crossmatch 10/05/16 10/05/16 10/05/16 15:50 18:53 23:12 WBC RBC Hgb Hct MCV MCH MCHC RDW Plt Count Lymph % (Auto) [place] % (Auto) Lymph # [place] # Baso # Seg Neutrophils % Seg Neuts % (Manual) Lymphocytes % (Manual) Monocytes % (Manual) Eosinophils % (Manual) Basophils % (Manual) Nucleated RBC % Seg Neutrophils # Seg Neutrophils # Man Lymphocytes # (Manual) Monocytes # (Manual) Eosinophils # (Manual) PT INR Fibrinogen dRVVT Confirm Interp Factor V Activity POC ABG pH POC ABG pCO2 POC ABG pO2 Sodium Potassium Chloride Carbon Dioxide BUN Creatinine Glucose POC Glucose 150 H 164 H Lactic Acid Calcium Phosphorus Magnesium Direct Bilirubin AST ALT Alkaline Phosphatase Lactate Dehydrogenase Troponin T C-Reactive Protein Total Protein Albumin Prealbumin Triglycerides Cholesterol LDL Cholesterol Direct HDL Cholesterol Urine pH Urine WBC (Auto) Urine Creatinine Urine Total Protein Vancomycin Trough Rheumatoid Factor Complement C4 Miscellaneous Test Crossmatch See Detail 10/06/16 10/06/16 10/06/16 03:50 03:50 04:53 WBC RBC 3.00 L Hgb 8.6 L Hct 25.8 L MCV MCH MCHC RDW 17.9 H Plt Count 65 L Lymph % (Auto) [place] % (Auto) Lymph # Oliver # Baso # Seg Neutrophils % Seg Neuts % (Manual) 30.0 L Lymphocytes % (Manual) 5.0 L Monocytes % (Manual) Eosinophils % (Manual) Basophils % (Manual) Nucleated RBC % Seg Neutrophils # Seg Neutrophils # Man Lymphocytes # (Manual) 0.4 L Monocytes # (Manual) Eosinophils # (Manual) PT INR Fibrinogen dRVVT Confirm Interp Factor V Activity POC ABG pH 7.310 L POC ABG pCO2 49.0 H POC ABG pO2 Sodium 133 L Potassium Chloride 95.9 L Carbon Dioxide BUN 26 H Creatinine 2.0 H Glucose 116 H POC Glucose Lactic Acid Calcium 7.8 L Phosphorus Magnesium Direct Bilirubin AST ALT Alkaline Phosphatase Lactate Dehydrogenase Troponin T C-Reactive Protein Total Protein Albumin Prealbumin Triglycerides Cholesterol LDL Cholesterol Direct HDL Cholesterol Urine pH Urine WBC (Auto) Urine Creatinine Urine Total Protein Vancomycin Trough Rheumatoid Factor Complement C4 Miscellaneous Test Crossmatch 10/06/16 10/06/16 10/06/16 05:23 11:52 18:34 WBC RBC Hgb Hct MCV MCH MCHC RDW Plt Count Lymph % (Auto) [place] % (Auto) Lymph # [place] # Baso # Seg Neutrophils % Seg Neuts % (Manual) Lymphocytes % (Manual) Monocytes % (Manual) Eosinophils % (Manual) Basophils % (Manual) Nucleated RBC % Seg Neutrophils # Seg Neutrophils # Man Lymphocytes # (Manual) Monocytes # (Manual) Eosinophils # (Manual) PT INR Fibrinogen dRVVT Confirm Interp Factor V Activity POC ABG pH POC ABG pCO2 POC ABG pO2 Sodium Potassium Chloride Carbon Dioxide BUN Creatinine Glucose POC Glucose 126 H 116 H 129 H Lactic Acid Calcium Phosphorus Magnesium Direct Bilirubin AST ALT Alkaline Phosphatase Lactate Dehydrogenase Troponin T C-Reactive Protein Total Protein Albumin Prealbumin Triglycerides Cholesterol LDL Cholesterol Direct HDL Cholesterol Urine pH Urine WBC (Auto) Urine Creatinine Urine Total Protein Vancomycin Trough Rheumatoid Factor Complement C4 Miscellaneous Test Crossmatch 08/10/07/16 10/07/16 03:45 05:00 10:00 WBC 17.0 H RBC 2.68 L Hgb 7.3 L Hct 25.3 L MCV MCH 27 L MCHC 29 L RDW 19.6 H Plt Count 74 L Lymph % (Auto) [place] % (Auto) Lymph # Oliver # Baso # Seg Neutrophils % Seg Neuts % (Manual) Lymphocytes % (Manual) 12.0 L Monocytes % (Manual) Eosinophils % (Manual) Basophils % (Manual) Nucleated RBC % 4.0 H Seg Neutrophils # Seg Neutrophils # Man 10.7 H Lymphocytes # (Manual) Monocytes # (Manual) Eosinophils # (Manual) PT INR Fibrinogen dRVVT Confirm Interp Factor V Activity POC ABG pH POC ABG pCO2 POC ABG pO2 Sodium 130 L Potassium 3.2 L Chloride 93.9 L Carbon Dioxide 20 L BUN 44 H Creatinine 2.7 H Glucose 129 H POC Glucose Lactic Acid Calcium 7.4 L Phosphorus Magnesium Direct Bilirubin AST ALT 6 L Alkaline Phosphatase 195 H Lactate Dehydrogenase Troponin T C-Reactive Protein Total Protein 4.9 L Albumin 1.0 L Prealbumin Triglycerides Cholesterol LDL Cholesterol Direct HDL Cholesterol Urine pH Urine WBC (Auto) Urine Creatinine Urine Total Protein Vancomycin Trough Rheumatoid Factor Complement C4 Miscellaneous Test Flexitest 1 H Crossmatch 10/07/16 10/07/16 10/07/16 10:00 11:24 18:10 WBC RBC Hgb Hct MCV MCH MCHC RDW Plt Count Lymph % (Auto) [place] % (Auto) Lymph # [place] # Baso # Seg Neutrophils % Seg Neuts % (Manual) Lymphocytes % (Manual) Monocytes % (Manual) Eosinophils % (Manual) Basophils % (Manual) Nucleated RBC % Seg Neutrophils # Seg Neutrophils # Man Lymphocytes # (Manual) Monocytes # (Manual) Eosinophils # (Manual) PT INR Fibrinogen dRVVT Confirm Interp Factor V Activity POC ABG pH POC ABG pCO2 POC ABG pO2 Sodium Potassium Chloride Carbon Dioxide BUN Creatinine Glucose POC Glucose 116 H 130 H Lactic Acid Calcium Phosphorus Magnesium Direct Bilirubin AST ALT Alkaline Phosphatase Lactate Dehydrogenase Troponin T C-Reactive Protein 19.40 H Total Protein Albumin Prealbumin Triglycerides Cholesterol LDL Cholesterol Direct HDL Cholesterol Urine pH Urine WBC (Auto) Urine Creatinine Urine Total Protein Vancomycin Trough Rheumatoid Factor Complement C4 Miscellaneous Test Crossmatch 10/07/16 10/08/16 10/08/16 18:30 00:00 04:00 WBC RBC Hgb Hct MCV MCH MCHC RDW Plt Count Lymph % (Auto) [place] % (Auto) Lymph # [place] # Baso # Seg Neutrophils % Seg Neuts % (Manual) Lymphocytes % (Manual) Monocytes % (Manual) Eosinophils % (Manual) Basophils % (Manual) Nucleated RBC % Seg Neutrophils # Seg Neutrophils # Man Lymphocytes # (Manual) Monocytes # (Manual) Eosinophils # (Manual) PT INR Fibrinogen dRVVT Confirm Interp Factor V Activity POC ABG pH POC ABG pCO2 POC ABG pO2 Sodium 132 L Potassium 3.3 L Chloride 93.6 L Carbon Dioxide 17 L BUN 59 H Creatinine 2.7 H Glucose 121 H POC Glucose 122 H Lactic Acid Calcium 7.6 L Phosphorus Magnesium Direct Bilirubin AST ALT Alkaline Phosphatase Lactate Dehydrogenase Troponin T C-Reactive Protein Total Protein Albumin Prealbumin Triglycerides Cholesterol LDL Cholesterol Direct HDL Cholesterol Urine pH Urine WBC (Auto) > 182.0 H Urine Creatinine Urine Total Protein Vancomycin Trough Rheumatoid Factor Complement C4 Miscellaneous Test Crossmatch 10/08/16 10/08/16 10/08/16 04:30 05:30 11:51 WBC RBC 5.15 H Hgb 14.4 H D Hct 44.5 H D MCV MCH MCHC RDW 19.5 H Plt Count 56 L Lymph % (Auto) [place] % (Auto) Lymph # Oliver # Baso # Seg Neutrophils % Seg Neuts % (Manual) 24.0 L Lymphocytes % (Manual) 8.0 L Monocytes % (Manual) Eosinophils % (Manual) Basophils % (Manual) Nucleated RBC % 9.0 H Seg Neutrophils # Seg Neutrophils # Man Lymphocytes # (Manual) 0.7 L Monocytes # (Manual) Eosinophils # (Manual) PT INR Fibrinogen dRVVT Confirm Interp Factor V Activity POC ABG pH POC ABG pCO2 POC ABG pO2 Sodium Potassium Chloride Carbon Dioxide BUN Creatinine Glucose POC Glucose 125 H 150 H Lactic Acid Calcium Phosphorus Magnesium Direct Bilirubin AST ALT Alkaline Phosphatase Lactate Dehydrogenase Troponin T C-Reactive Protein Total Protein Albumin Prealbumin Triglycerides Cholesterol LDL Cholesterol Direct HDL Cholesterol Urine pH Urine WBC (Auto) Urine Creatinine Urine Total Protein Vancomycin Trough Rheumatoid Factor Complement C4 Miscellaneous Test Crossmatch 10/08/16 10/08/16 10/08/16 12:49 17:07 19:30 WBC RBC Hgb 7.1 L D Hct 22.4 L D MCV MCH MCHC RDW Plt Count Lymph % (Auto) [place] % (Auto) Lymph # [place] # Baso # Seg Neutrophils % Seg Neuts % (Manual) Lymphocytes % (Manual) Monocytes % (Manual) Eosinophils % (Manual) Basophils % (Manual) Nucleated RBC % Seg Neutrophils # Seg Neutrophils # Man Lymphocytes # (Manual) Monocytes # (Manual) Eosinophils # (Manual) PT INR Fibrinogen dRVVT Confirm Interp Factor V Activity POC ABG pH POC ABG pCO2 28.2 L POC ABG pO2 111 H Sodium Potassium Chloride Carbon Dioxide BUN Creatinine Glucose POC Glucose 145 H Lactic Acid Calcium Phosphorus Magnesium Direct Bilirubin AST ALT Alkaline Phosphatase Lactate Dehydrogenase Troponin T C-Reactive Protein Total Protein Albumin Prealbumin Triglycerides Cholesterol LDL Cholesterol Direct HDL Cholesterol Urine pH Urine WBC (Auto) Urine Creatinine Urine Total Protein Vancomycin Trough Rheumatoid Factor Complement C4 Miscellaneous Test Crossmatch 10/08/16 10/09/16 10/09/16 19:30 03:45 03:45 WBC 12.6 H RBC 2.36 L Hgb 6.7 L Hct 21.1 L MCV MCH MCHC RDW 19.5 H Plt Count 75 L Lymph % (Auto) [place] % (Auto) Lymph # [place] # Baso # Seg Neutrophils % Seg Neuts % (Manual) Lymphocytes % (Manual) Monocytes % (Manual) 10.0 H Eosinophils % (Manual) Basophils % (Manual) Nucleated RBC % 3.0 H Seg Neutrophils # Seg Neutrophils # Man Lymphocytes # (Manual) Monocytes # (Manual) 1.3 H Eosinophils # (Manual) PT 18.0 H INR 1.41 H Fibrinogen dRVVT Confirm Interp Factor V Activity POC ABG pH POC ABG pCO2 POC ABG pO2 Sodium 135 L Potassium Chloride Carbon Dioxide 17 L BUN 81 H Creatinine 3.2 H Glucose 109 H POC Glucose Lactic Acid Calcium 7.4 L Phosphorus 4.60 H D Magnesium Direct Bilirubin AST ALT Alkaline Phosphatase Lactate Dehydrogenase Troponin T C-Reactive Protein Total Protein Albumin Prealbumin Triglycerides Cholesterol LDL Cholesterol Direct HDL Cholesterol Urine pH Urine WBC (Auto) Urine Creatinine Urine Total Protein Vancomycin Trough Rheumatoid Factor Complement C4 Miscellaneous Test Crossmatch 10/09/16 10/09/16 10/09/16 03:45 05:14 07:20 WBC RBC Hgb Hct MCV MCH MCHC RDW Plt Count Lymph % (Auto) [place] % (Auto) Lymph # [place] # Baso # Seg Neutrophils % Seg Neuts % (Manual) Lymphocytes % (Manual) Monocytes % (Manual) Eosinophils % (Manual) Basophils % (Manual) Nucleated RBC % Seg Neutrophils # Seg Neutrophils # Man Lymphocytes # (Manual) Monocytes # (Manual) Eosinophils # (Manual) PT 19.0 H INR 1.51 H Fibrinogen dRVVT Confirm Interp Factor V Activity POC ABG pH POC ABG pCO2 POC ABG pO2 Sodium Potassium Chloride Carbon Dioxide BUN Creatinine Glucose POC Glucose 151 H Lactic Acid Calcium Phosphorus Magnesium Direct Bilirubin AST ALT Alkaline Phosphatase Lactate Dehydrogenase Troponin T C-Reactive Protein Total Protein Albumin Prealbumin Triglycerides Cholesterol LDL Cholesterol Direct HDL Cholesterol Urine pH Urine WBC (Auto) Urine Creatinine Urine Total Protein Vancomycin Trough Rheumatoid Factor Complement C4 Miscellaneous Test Crossmatch See Detail 10/09/16 10/09/16 10/09/16 11:46 16:20 16:43 WBC RBC Hgb 7.2 L Hct 22.2 L MCV MCH MCHC RDW Plt Count Lymph % (Auto) [place] % (Auto) Lymph # [place] # Baso # Seg Neutrophils % Seg Neuts % (Manual) Lymphocytes % (Manual) Monocytes % (Manual) Eosinophils % (Manual) Basophils % (Manual) Nucleated RBC % Seg Neutrophils # Seg Neutrophils # Man Lymphocytes # (Manual) Monocytes # (Manual) Eosinophils # (Manual) PT INR Fibrinogen dRVVT Confirm Interp Factor V Activity POC ABG pH POC ABG pCO2 POC ABG pO2 Sodium Potassium Chloride Carbon Dioxide BUN Creatinine Glucose POC Glucose 133 H 141 H Lactic Acid Calcium Phosphorus Magnesium Direct Bilirubin AST ALT Alkaline Phosphatase Lactate Dehydrogenase Troponin T C-Reactive Protein Total Protein Albumin Prealbumin Triglycerides Cholesterol LDL Cholesterol Direct HDL Cholesterol Urine pH Urine WBC (Auto) Urine Creatinine Urine Total Protein Vancomycin Trough Rheumatoid Factor Complement C4 Miscellaneous Test Crossmatch 10/10/16 10/10/16 10/10/16 05:00 05:00 11:19 WBC 18.5 H RBC 2.19 L Hgb 6.4 L Hct 19.6 L* MCV MCH MCHC RDW 19.3 H Plt Count 93 L Lymph % (Auto) [place] % (Auto) Lymph # [place] # Baso # Seg Neutrophils % Seg Neuts % (Manual) Lymphocytes % (Manual) 10.0 L Monocytes % (Manual) Eosinophils % (Manual) Basophils % (Manual) Nucleated RBC % 4.0 H Seg Neutrophils # Seg Neutrophils # Man 11.3 H Lymphocytes # (Manual) Monocytes # (Manual) Eosinophils # (Manual) PT INR Fibrinogen dRVVT Confirm Interp Factor V Activity POC ABG pH POC ABG pCO2 POC ABG pO2 Sodium Potassium 5.7 H D Chloride Carbon Dioxide 16 L BUN 94 H Creatinine 3.1 H Glucose 131 H POC Glucose 153 H Lactic Acid Calcium 8.2 L Phosphorus 5.10 H Magnesium 2.40 H Direct Bilirubin 0.3 H AST ALT < 5 L Alkaline Phosphatase 319 H Lactate Dehydrogenase Troponin T C-Reactive Protein Total Protein 5.1 L Albumin 1.0 L Prealbumin Triglycerides Cholesterol LDL Cholesterol Direct HDL Cholesterol Urine pH Urine WBC (Auto) Urine Creatinine Urine Total Protein Vancomycin Trough Rheumatoid Factor Complement C4 Miscellaneous Test Crossmatch 10/10/16 10/10/16 10/11/16 17:50 23:30 04:15 WBC RBC Hgb Hct MCV MCH MCHC RDW Plt Count Lymph % (Auto) [place] % (Auto) Lymph # Oliver # Baso # Seg Neutrophils % Seg Neuts % (Manual) Lymphocytes % (Manual) Monocytes % (Manual) Eosinophils % (Manual) Basophils % (Manual) Nucleated RBC % Seg Neutrophils # Seg Neutrophils # Man Lymphocytes # (Manual) Monocytes # (Manual) Eosinophils # (Manual) PT INR Fibrinogen dRVVT Confirm Interp Factor V Activity POC ABG pH POC ABG pCO2 POC ABG pO2 Sodium Potassium Chloride 96.4 L Carbon Dioxide 21 L BUN 57 H Creatinine 2.1 H Glucose 151 H POC Glucose 146 H 141 H Lactic Acid Calcium 8.3 L Phosphorus Magnesium Direct Bilirubin AST ALT Alkaline Phosphatase Lactate Dehydrogenase Troponin T C-Reactive Protein Total Protein Albumin Prealbumin Triglycerides Cholesterol LDL Cholesterol Direct HDL Cholesterol Urine pH Urine WBC (Auto) Urine Creatinine Urine Total Protein Vancomycin Trough Rheumatoid Factor Complement C4 Miscellaneous Test Crossmatch 10/11/16 10/11/16 10/11/16 04:15 04:15 05:30 WBC 28.3 H RBC 3.12 L Hgb 9.3 L Hct 28.7 L D MCV MCH MCHC RDW 17.7 H Plt Count 128 L Lymph % (Auto) [place] % (Auto) Lymph # Oliver # Baso # Seg Neutrophils % Seg Neuts % (Manual) Lymphocytes % (Manual) Monocytes % (Manual) Eosinophils % (Manual) Basophils % (Manual) Nucleated RBC % Seg Neutrophils # Seg Neutrophils # Man Lymphocytes # (Manual) Monocytes # (Manual) Eosinophils # (Manual) PT INR Fibrinogen dRVVT Confirm Interp Factor V Activity POC ABG pH POC ABG pCO2 POC ABG pO2 Sodium Potassium Chloride Carbon Dioxide BUN Creatinine Glucose POC Glucose 167 H Lactic Acid Calcium Phosphorus Magnesium Direct Bilirubin AST ALT Alkaline Phosphatase Lactate Dehydrogenase Troponin T C-Reactive Protein 15.80 H Total Protein Albumin Prealbumin Triglycerides Cholesterol LDL Cholesterol Direct HDL Cholesterol Urine pH Urine WBC (Auto) Urine Creatinine Urine Total Protein Vancomycin Trough Rheumatoid Factor Complement C4 Miscellaneous Test Crossmatch 10/11/16 10/11/16 10/11/16 11:40 15:49 23:57 WBC RBC Hgb Hct MCV MCH MCHC RDW Plt Count Lymph % (Auto) [place] % (Auto) Lymph # [place] # Baso # Seg Neutrophils % Seg Neuts % (Manual) Lymphocytes % (Manual) Monocytes % (Manual) Eosinophils % (Manual) Basophils % (Manual) Nucleated RBC % Seg Neutrophils # Seg Neutrophils # Man Lymphocytes # (Manual) Monocytes # (Manual) Eosinophils # (Manual) PT INR Fibrinogen dRVVT Confirm Interp Factor V Activity POC ABG pH POC ABG pCO2 POC ABG pO2 Sodium Potassium Chloride Carbon Dioxide BUN Creatinine Glucose POC Glucose 139 H 168 H 161 H Lactic Acid Calcium Phosphorus Magnesium Direct Bilirubin AST ALT Alkaline Phosphatase Lactate Dehydrogenase Troponin T C-Reactive Protein Total Protein Albumin Prealbumin Triglycerides Cholesterol LDL Cholesterol Direct HDL Cholesterol Urine pH Urine WBC (Auto) Urine Creatinine Urine Total Protein Vancomycin Trough Rheumatoid Factor Complement C4 Miscellaneous Test Crossmatch 10/12/16 10/12/16 10/12/16 04:40 04:40 05:44 WBC 22.5 H RBC 2.88 L Hgb 8.8 L Hct 26.8 L MCV MCH MCHC RDW 17.8 H Plt Count Lymph % (Auto) [place] % (Auto) Lymph # [place] # Baso # Seg Neutrophils % Seg Neuts % (Manual) Lymphocytes % (Manual) Monocytes % (Manual) Eosinophils % (Manual) Basophils % (Manual) Nucleated RBC % Seg Neutrophils # Seg Neutrophils # Man Lymphocytes # (Manual) Monocytes # (Manual) Eosinophils # (Manual) PT INR Fibrinogen dRVVT Confirm Interp Factor V Activity POC ABG pH POC ABG pCO2 POC ABG pO2 Sodium 134 L Potassium Chloride 93.0 L Carbon Dioxide BUN 74 H Creatinine 2.5 H Glucose 137 H POC Glucose 158 H Lactic Acid Calcium 8.2 L Phosphorus Magnesium Direct Bilirubin AST ALT Alkaline Phosphatase Lactate Dehydrogenase Troponin T C-Reactive Protein Total Protein Albumin Prealbumin Triglycerides Cholesterol LDL Cholesterol Direct HDL Cholesterol Urine pH Urine WBC (Auto) Urine Creatinine Urine Total Protein Vancomycin Trough Rheumatoid Factor Complement C4 Miscellaneous Test Crossmatch 10/12/16 10/12/16 10/12/16 12:27 18:18 23:46 WBC RBC Hgb Hct MCV MCH MCHC RDW Plt Count Lymph % (Auto) [place] % (Auto) Lymph # [place] # Baso # Seg Neutrophils % Seg Neuts % (Manual) Lymphocytes % (Manual) Monocytes % (Manual) Eosinophils % (Manual) Basophils % (Manual) Nucleated RBC % Seg Neutrophils # Seg Neutrophils # Man Lymphocytes # (Manual) Monocytes # (Manual) Eosinophils # (Manual) PT INR Fibrinogen dRVVT Confirm Interp Factor V Activity POC ABG pH POC ABG pCO2 POC ABG pO2 Sodium Potassium Chloride Carbon Dioxide BUN Creatinine Glucose POC Glucose 153 H 140 H 150 H Lactic Acid Calcium Phosphorus Magnesium Direct Bilirubin AST ALT Alkaline Phosphatase Lactate Dehydrogenase Troponin T C-Reactive Protein Total Protein Albumin Prealbumin Triglycerides Cholesterol LDL Cholesterol Direct HDL Cholesterol Urine pH Urine WBC (Auto) Urine Creatinine Urine Total Protein Vancomycin Trough Rheumatoid Factor Complement C4 Miscellaneous Test Crossmatch 10/13/16 10/13/16 10/13/16 06:22 09:20 12:29 WBC RBC Hgb Hct MCV MCH MCHC RDW Plt Count Lymph % (Auto) [place] % (Auto) Lymph # [place] # Baso # Seg Neutrophils % Seg Neuts % (Manual) Lymphocytes % (Manual) Monocytes % (Manual) Eosinophils % (Manual) Basophils % (Manual) Nucleated RBC % Seg Neutrophils # Seg Neutrophils # Man Lymphocytes # (Manual) Monocytes # (Manual) Eosinophils # (Manual) PT INR Fibrinogen dRVVT Confirm Interp Factor V Activity POC ABG pH POC ABG pCO2 POC ABG pO2 Sodium Potassium Chloride Carbon Dioxide BUN Creatinine Glucose POC Glucose 165 H 193 H Lactic Acid Calcium Phosphorus Magnesium Direct Bilirubin AST ALT Alkaline Phosphatase Lactate Dehydrogenase Troponin T C-Reactive Protein Total Protein Albumin Prealbumin Triglycerides Cholesterol LDL Cholesterol Direct HDL Cholesterol Urine pH Urine WBC (Auto) Urine Creatinine Urine Total Protein Vancomycin Trough Rheumatoid Factor Complement C4 Miscellaneous Test Flexitest 1 H Crossmatch 10/13/16 10/13/16 10/13/16 18:09 Unknown Unknown WBC 23.4 H RBC 2.83 L Hgb 8.7 L Hct 26.1 L MCV MCH MCHC RDW 18.1 H Plt Count Lymph % (Auto) [place] % (Auto) Lymph # [place] # Baso # Seg Neutrophils % Seg Neuts % (Manual) Lymphocytes % (Manual) Monocytes % (Manual) Eosinophils % (Manual) Basophils % (Manual) Nucleated RBC % Seg Neutrophils # Seg Neutrophils # Man Lymphocytes # (Manual) Monocytes # (Manual) Eosinophils # (Manual) PT INR Fibrinogen dRVVT Confirm Interp Factor V Activity POC ABG pH POC ABG pCO2 POC ABG pO2 Sodium Potassium Chloride 95.8 L Carbon Dioxide BUN 82 H Creatinine 2.6 H Glucose 152 H POC Glucose 166 H Lactic Acid Calcium Phosphorus Magnesium Direct Bilirubin AST ALT Alkaline Phosphatase Lactate Dehydrogenase Troponin T C-Reactive Protein Total Protein Albumin Prealbumin Triglycerides Cholesterol LDL Cholesterol Direct HDL Cholesterol Urine pH Urine WBC (Auto) Urine Creatinine Urine Total Protein Vancomycin Trough Rheumatoid Factor Complement C4 Miscellaneous Test Crossmatch 10/14/16 10/14/16 10/14/16 05:38 06:35 08:10 WBC 20.7 H RBC 2.81 L Hgb 8.4 L Hct 27.2 L MCV MCH MCHC RDW 19.4 H Plt Count Lymph % (Auto) [place] % (Auto) Lymph # [place] # Baso # Seg Neutrophils % Seg Neuts % (Manual) Lymphocytes % (Manual) Monocytes % (Manual) Eosinophils % (Manual) Basophils % (Manual) Nucleated RBC % Seg Neutrophils # Seg Neutrophils # Man Lymphocytes # (Manual) Monocytes # (Manual) Eosinophils # (Manual) PT INR Fibrinogen dRVVT Confirm Interp Factor V Activity POC ABG pH POC ABG pCO2 POC ABG pO2 Sodium Potassium Chloride Carbon Dioxide BUN 58 H Creatinine 1.9 H Glucose 169 H POC Glucose 195 H Lactic Acid Calcium Phosphorus Magnesium Direct Bilirubin AST ALT Alkaline Phosphatase Lactate Dehydrogenase Troponin T C-Reactive Protein Total Protein Albumin Prealbumin Triglycerides Cholesterol LDL Cholesterol Direct HDL Cholesterol Urine pH Urine WBC (Auto) Urine Creatinine Urine Total Protein Vancomycin Trough Rheumatoid Factor Complement C4 Miscellaneous Test Crossmatch 10/14/16 10/14/16 10/14/16 11:44 17:13 23:28 WBC RBC Hgb Hct MCV MCH MCHC RDW Plt Count Lymph % (Auto) [place] % (Auto) Lymph # [place] # Baso # Seg Neutrophils % Seg Neuts % (Manual) Lymphocytes % (Manual) Monocytes % (Manual) Eosinophils % (Manual) Basophils % (Manual) Nucleated RBC % Seg Neutrophils # Seg Neutrophils # Man Lymphocytes # (Manual) Monocytes # (Manual) Eosinophils # (Manual) PT INR Fibrinogen dRVVT Confirm Interp Factor V Activity POC ABG pH POC ABG pCO2 POC ABG pO2 Sodium Potassium Chloride Carbon Dioxide BUN Creatinine Glucose POC Glucose 174 H 121 H 151 H Lactic Acid Calcium Phosphorus Magnesium Direct Bilirubin AST ALT Alkaline Phosphatase Lactate Dehydrogenase Troponin T C-Reactive Protein Total Protein Albumin Prealbumin Triglycerides Cholesterol LDL Cholesterol Direct HDL Cholesterol Urine pH Urine WBC (Auto) Urine Creatinine Urine Total Protein Vancomycin Trough Rheumatoid Factor Complement C4 Miscellaneous Test Crossmatch 10/15/16 10/15/16 10/15/16 05:06 12:26 17:48 WBC RBC Hgb Hct MCV MCH MCHC RDW Plt Count Lymph % (Auto) [place] % (Auto) Lymph # [place] # Baso # Seg Neutrophils % Seg Neuts % (Manual) Lymphocytes % (Manual) Monocytes % (Manual) Eosinophils % (Manual) Basophils % (Manual) Nucleated RBC % Seg Neutrophils # Seg Neutrophils # Man Lymphocytes # (Manual) Monocytes # (Manual) Eosinophils # (Manual) PT INR Fibrinogen dRVVT Confirm Interp Factor V Activity POC ABG pH POC ABG pCO2 POC ABG pO2 Sodium Potassium Chloride Carbon Dioxide BUN Creatinine Glucose POC Glucose 151 H 149 H 153 H Lactic Acid Calcium Phosphorus Magnesium Direct Bilirubin AST ALT Alkaline Phosphatase Lactate Dehydrogenase Troponin T C-Reactive Protein Total Protein Albumin Prealbumin Triglycerides Cholesterol LDL Cholesterol Direct HDL Cholesterol Urine pH Urine WBC (Auto) Urine Creatinine Urine Total Protein Vancomycin Trough Rheumatoid Factor Complement C4 Miscellaneous Test Crossmatch 10/15/16 10/15/16 10/16/16 Unknown Unknown 00:02 WBC 23.4 H RBC 2.78 L Hgb 8.5 L Hct 25.7 L MCV MCH MCHC RDW 18.7 H Plt Count Lymph % (Auto) [place] % (Auto) Lymph # [place] # Baso # Seg Neutrophils % Seg Neuts % (Manual) Lymphocytes % (Manual) Monocytes % (Manual) Eosinophils % (Manual) Basophils % (Manual) Nucleated RBC % Seg Neutrophils # Seg Neutrophils # Man Lymphocytes # (Manual) Monocytes # (Manual) Eosinophils # (Manual) PT INR Fibrinogen dRVVT Confirm Interp Factor V Activity POC ABG pH POC ABG pCO2 POC ABG pO2 Sodium Potassium Chloride Carbon Dioxide BUN 73 H Creatinine 2.3 H Glucose 120 H POC Glucose 137 H Lactic Acid Calcium Phosphorus Magnesium Direct Bilirubin AST ALT Alkaline Phosphatase Lactate Dehydrogenase Troponin T C-Reactive Protein Total Protein Albumin Prealbumin Triglycerides Cholesterol LDL Cholesterol Direct HDL Cholesterol Urine pH Urine WBC (Auto) Urine Creatinine Urine Total Protein Vancomycin Trough Rheumatoid Factor Complement C4 Miscellaneous Test Crossmatch 10/16/16 10/16/16 10/16/16 05:44 06:25 06:25 WBC 22.5 H RBC 2.76 L Hgb 8.3 L Hct 25.2 L MCV MCH MCHC RDW 18.3 H Plt Count Lymph % (Auto) [place] % (Auto) Lymph # [place] # Baso # Seg Neutrophils % Seg Neuts % (Manual) Lymphocytes % (Manual) Monocytes % (Manual) Eosinophils % (Manual) Basophils % (Manual) Nucleated RBC % Seg Neutrophils # Seg Neutrophils # Man Lymphocytes # (Manual) Monocytes # (Manual) Eosinophils # (Manual) PT INR Fibrinogen dRVVT Confirm Interp Factor V Activity POC ABG pH POC ABG pCO2 POC ABG pO2 Sodium Potassium Chloride Carbon Dioxide BUN 92 H Creatinine 3.0 H Glucose 138 H POC Glucose 110 H Lactic Acid Calcium Phosphorus Magnesium Direct Bilirubin AST ALT Alkaline Phosphatase Lactate Dehydrogenase Troponin T C-Reactive Protein Total Protein Albumin Prealbumin Triglycerides Cholesterol LDL Cholesterol Direct HDL Cholesterol Urine pH Urine WBC (Auto) Urine Creatinine Urine Total Protein Vancomycin Trough Rheumatoid Factor Complement C4 Miscellaneous Test Crossmatch 10/16/16 10/16/16 10/16/16 11:27 11:48 17:36 WBC RBC Hgb Hct MCV MCH MCHC RDW Plt Count Lymph % (Auto) [place] % (Auto) Lymph # [place] # Baso # Seg Neutrophils % Seg Neuts % (Manual) Lymphocytes % (Manual) Monocytes % (Manual) Eosinophils % (Manual) Basophils % (Manual) Nucleated RBC % Seg Neutrophils # Seg Neutrophils # Man Lymphocytes # (Manual) Monocytes # (Manual) Eosinophils # (Manual) PT INR Fibrinogen dRVVT Confirm Interp Factor V Activity POC ABG pH 7.582 H POC ABG pCO2 27.4 L POC ABG pO2 110 H Sodium Potassium Chloride Carbon Dioxide BUN Creatinine Glucose POC Glucose 121 H 133 H Lactic Acid Calcium Phosphorus Magnesium Direct Bilirubin AST ALT Alkaline Phosphatase Lactate Dehydrogenase Troponin T C-Reactive Protein Total Protein Albumin Prealbumin Triglycerides Cholesterol LDL Cholesterol Direct HDL Cholesterol Urine pH Urine WBC (Auto) Urine Creatinine Urine Total Protein Vancomycin Trough Rheumatoid Factor Complement C4 Miscellaneous Test Crossmatch 10/16/16 10/17/16 10/17/16 20:48 04:24 04:24 WBC 21.4 H RBC 2.72 L Hgb 8.0 L Hct 25.2 L MCV MCH MCHC RDW 18.0 H Plt Count Lymph % (Auto) [place] % (Auto) Lymph # [place] # Baso # Seg Neutrophils % Seg Neuts % (Manual) Lymphocytes % (Manual) Monocytes % (Manual) Eosinophils % (Manual) Basophils % (Manual) Nucleated RBC % Seg Neutrophils # Seg Neutrophils # Man Lymphocytes # (Manual) Monocytes # (Manual) Eosinophils # (Manual) PT INR Fibrinogen dRVVT Confirm Interp Factor V Activity POC ABG pH 7.561 H POC ABG pCO2 24.4 L POC ABG pO2 77 L Sodium 148 H Potassium Chloride Carbon Dioxide BUN 104 H Creatinine 3.0 H Glucose 149 H POC Glucose Lactic Acid Calcium Phosphorus Magnesium Direct Bilirubin AST ALT Alkaline Phosphatase 138 H Lactate Dehydrogenase Troponin T C-Reactive Protein Total Protein 6.2 L Albumin 1.5 L Prealbumin Triglycerides Cholesterol LDL Cholesterol Direct HDL Cholesterol Urine pH Urine WBC (Auto) Urine Creatinine Urine Total Protein Vancomycin Trough Rheumatoid Factor Complement C4 Miscellaneous Test Crossmatch 10/17/16 10/17/16 10/17/16 06:02 12:17 17:14 WBC RBC Hgb Hct MCV MCH MCHC RDW Plt Count Lymph % (Auto) [place] % (Auto) Lymph # [place] # Baso # Seg Neutrophils % Seg Neuts % (Manual) Lymphocytes % (Manual) Monocytes % (Manual) Eosinophils % (Manual) Basophils % (Manual) Nucleated RBC % Seg Neutrophils # Seg Neutrophils # Man Lymphocytes # (Manual) Monocytes # (Manual) Eosinophils # (Manual) PT INR Fibrinogen dRVVT Confirm Interp Factor V Activity POC ABG pH POC ABG pCO2 POC ABG pO2 Sodium Potassium Chloride Carbon Dioxide BUN Creatinine Glucose POC Glucose 170 H 167 H 126 H Lactic Acid Calcium Phosphorus Magnesium Direct Bilirubin AST ALT Alkaline Phosphatase Lactate Dehydrogenase Troponin T C-Reactive Protein Total Protein Albumin Prealbumin Triglycerides Cholesterol LDL Cholesterol Direct HDL Cholesterol Urine pH Urine WBC (Auto) Urine Creatinine Urine Total Protein Vancomycin Trough Rheumatoid Factor Complement C4 Miscellaneous Test Crossmatch 10/17/16 10/18/16 10/18/16 23:17 04:00 04:00 WBC 20.7 H RBC 2.47 L Hgb 7.4 L Hct 22.9 L MCV MCH MCHC RDW 17.5 H Plt Count Lymph % (Auto) [place] % (Auto) Lymph # [place] # Baso # Seg Neutrophils % Seg Neuts % (Manual) Lymphocytes % (Manual) Monocytes % (Manual) Eosinophils % (Manual) Basophils % (Manual) Nucleated RBC % Seg Neutrophils # Seg Neutrophils # Man Lymphocytes # (Manual) Monocytes # (Manual) Eosinophils # (Manual) PT INR Fibrinogen dRVVT Confirm Interp Factor V Activity POC ABG pH POC ABG pCO2 POC ABG pO2 Sodium 149 H Potassium Chloride 107.9 H Carbon Dioxide 20 L BUN 117 H Creatinine 3.2 H Glucose 119 H POC Glucose 121 H Lactic Acid Calcium Phosphorus Magnesium Direct Bilirubin AST ALT Alkaline Phosphatase Lactate Dehydrogenase Troponin T C-Reactive Protein Total Protein Albumin Prealbumin Triglycerides Cholesterol LDL Cholesterol Direct HDL Cholesterol Urine pH Urine WBC (Auto) Urine Creatinine Urine Total Protein Vancomycin Trough Rheumatoid Factor Complement C4 Miscellaneous Test Crossmatch 10/18/16 10/18/16 10/18/16 05:23 10:46 17:30 WBC RBC Hgb Hct MCV MCH MCHC RDW Plt Count Lymph % (Auto) [place] % (Auto) Lymph # [place] # Baso # Seg Neutrophils % Seg Neuts % (Manual) Lymphocytes % (Manual) Monocytes % (Manual) Eosinophils % (Manual) Basophils % (Manual) Nucleated RBC % Seg Neutrophils # Seg Neutrophils # Man Lymphocytes # (Manual) Monocytes # (Manual) Eosinophils # (Manual) PT INR Fibrinogen dRVVT Confirm Interp Factor V Activity POC ABG pH POC ABG pCO2 POC ABG pO2 Sodium Potassium Chloride Carbon Dioxide BUN Creatinine Glucose POC Glucose 119 H 155 H 124 H Lactic Acid Calcium Phosphorus Magnesium Direct Bilirubin AST ALT Alkaline Phosphatase Lactate Dehydrogenase Troponin T C-Reactive Protein Total Protein Albumin Prealbumin Triglycerides Cholesterol LDL Cholesterol Direct HDL Cholesterol Urine pH Urine WBC (Auto) Urine Creatinine Urine Total Protein Vancomycin Trough Rheumatoid Factor Complement C4 Miscellaneous Test Crossmatch 10/19/16 10/19/16 10/19/16 04:00 04:00 05:25 WBC 17.4 H RBC 2.54 L Hgb 7.7 L Hct 23.6 L MCV MCH MCHC RDW 17.3 H Plt Count Lymph % (Auto) [place] % (Auto) Lymph # [place] # Baso # Seg Neutrophils % Seg Neuts % (Manual) Lymphocytes % (Manual) Monocytes % (Manual) Eosinophils % (Manual) Basophils % (Manual) Nucleated RBC % Seg Neutrophils # Seg Neutrophils # Man Lymphocytes # (Manual) Monocytes # (Manual) Eosinophils # (Manual) PT INR Fibrinogen dRVVT Confirm Interp Factor V Activity POC ABG pH POC ABG pCO2 POC ABG pO2 Sodium Potassium Chloride Carbon Dioxide BUN 72 H Creatinine 2.1 H Glucose 116 H POC Glucose 119 H Lactic Acid Calcium Phosphorus Magnesium Direct Bilirubin AST ALT Alkaline Phosphatase Lactate Dehydrogenase Troponin T C-Reactive Protein Total Protein Albumin Prealbumin Triglycerides Cholesterol LDL Cholesterol Direct HDL Cholesterol Urine pH Urine WBC (Auto) Urine Creatinine Urine Total Protein Vancomycin Trough Rheumatoid Factor Complement C4 Miscellaneous Test Crossmatch 10/19/16 10/19/16 10/20/16 11:46 23:59 06:00 WBC RBC Hgb Hct MCV MCH MCHC RDW Plt Count Lymph % (Auto) [place] % (Auto) Lymph # [place] # Baso # Seg Neutrophils % Seg Neuts % (Manual) Lymphocytes % (Manual) Monocytes % (Manual) Eosinophils % (Manual) Basophils % (Manual) Nucleated RBC % Seg Neutrophils # Seg Neutrophils # Man Lymphocytes # (Manual) Monocytes # (Manual) Eosinophils # (Manual) PT INR Fibrinogen dRVVT Confirm Interp Factor V Activity POC ABG pH POC ABG pCO2 POC ABG pO2 Sodium Potassium Chloride Carbon Dioxide 17 L BUN 94 H Creatinine 2.7 H Glucose POC Glucose 116 H 117 H Lactic Acid Calcium Phosphorus Magnesium Direct Bilirubin AST ALT Alkaline Phosphatase Lactate Dehydrogenase Troponin T C-Reactive Protein Total Protein Albumin Prealbumin Triglycerides Cholesterol LDL Cholesterol Direct HDL Cholesterol Urine pH Urine WBC (Auto) Urine Creatinine Urine Total Protein Vancomycin Trough Rheumatoid Factor Complement C4 Miscellaneous Test Crossmatch 10/20/16 10/20/16 10/20/16 06:00 11:49 16:00 WBC 19.7 H RBC 2.51 L Hgb 7.7 L Hct 23.5 L MCV MCH MCHC RDW 17.5 H Plt Count Lymph % (Auto) [place] % (Auto) Lymph # [place] # Baso # Seg Neutrophils % Seg Neuts % (Manual) Lymphocytes % (Manual) Monocytes % (Manual) Eosinophils % (Manual) Basophils % (Manual) Nucleated RBC % Seg Neutrophils # Seg Neutrophils # Man Lymphocytes # (Manual) Monocytes # (Manual) Eosinophils # (Manual) PT INR Fibrinogen dRVVT Confirm Interp Factor V Activity POC ABG pH POC ABG pCO2 POC ABG pO2 Sodium Potassium Chloride Carbon Dioxide BUN Creatinine Glucose POC Glucose 117 H Lactic Acid Calcium Phosphorus Magnesium Direct Bilirubin AST ALT Alkaline Phosphatase Lactate Dehydrogenase Troponin T C-Reactive Protein Total Protein Albumin Prealbumin Triglycerides Cholesterol LDL Cholesterol Direct HDL Cholesterol Urine pH Urine WBC (Auto) Urine Creatinine Urine Total Protein Vancomycin Trough Rheumatoid Factor Complement C4 Miscellaneous Test Flexitest 1 H Crossmatch 10/20/16 10/20/16 10/21/16 18:36 23:39 04:00 WBC RBC Hgb Hct MCV MCH MCHC RDW Plt Count Lymph % (Auto) [place] % (Auto) Lymph # [place] # Baso # Seg Neutrophils % Seg Neuts % (Manual) Lymphocytes % (Manual) Monocytes % (Manual) Eosinophils % (Manual) Basophils % (Manual) Nucleated RBC % Seg Neutrophils # Seg Neutrophils # Man Lymphocytes # (Manual) Monocytes # (Manual) Eosinophils # (Manual) PT INR Fibrinogen dRVVT Confirm Interp Factor V Activity POC ABG pH POC ABG pCO2 POC ABG pO2 Sodium Potassium 5.4 H D Chloride Carbon Dioxide 15 L BUN 110 H Creatinine 3.0 H Glucose POC Glucose 127 H 114 H Lactic Acid Calcium Phosphorus Magnesium Direct Bilirubin AST ALT Alkaline Phosphatase Lactate Dehydrogenase Troponin T C-Reactive Protein Total Protein Albumin Prealbumin Triglycerides Cholesterol LDL Cholesterol Direct HDL Cholesterol Urine pH Urine WBC (Auto) Urine Creatinine Urine Total Protein Vancomycin Trough Rheumatoid Factor Complement C4 Miscellaneous Test Crossmatch 10/21/16 10/21/16 10/22/16 05:54 23:46 05:18 WBC RBC Hgb Hct MCV MCH MCHC RDW Plt Count Lymph % (Auto) [place] % (Auto) Lymph # [place] # Baso # Seg Neutrophils % Seg Neuts % (Manual) Lymphocytes % (Manual) Monocytes % (Manual) Eosinophils % (Manual) Basophils % (Manual) Nucleated RBC % Seg Neutrophils # Seg Neutrophils # Man Lymphocytes # (Manual) Monocytes # (Manual) Eosinophils # (Manual) PT INR Fibrinogen dRVVT Confirm Interp Factor V Activity POC ABG pH POC ABG pCO2 POC ABG pO2 Sodium Potassium Chloride Carbon Dioxide BUN Creatinine Glucose POC Glucose 119 H 108 H 109 H Lactic Acid Calcium Phosphorus Magnesium Direct Bilirubin AST ALT Alkaline Phosphatase Lactate Dehydrogenase Troponin T C-Reactive Protein Total Protein Albumin Prealbumin Triglycerides Cholesterol LDL Cholesterol Direct HDL Cholesterol Urine pH Urine WBC (Auto) Urine Creatinine Urine Total Protein Vancomycin Trough Rheumatoid Factor Complement C4 Miscellaneous Test Crossmatch 10/22/16 10/22/16 10/22/16 06:40 06:40 06:40 WBC 14.0 H RBC 2.03 L Hgb 7.0 L Hct 20.5 L MCV 98 H MCH 34 H MCHC 35 H RDW 17.8 H Plt Count Lymph % (Auto) [place] % (Auto) 9.9 H Lymph # Oliver # 1.4 H Baso # 0.2 H Seg Neutrophils % 72.0 H Seg Neuts % (Manual) Lymphocytes % (Manual) Monocytes % (Manual) Eosinophils % (Manual) Basophils % (Manual) Nucleated RBC % Seg Neutrophils # 10.0 H Seg Neutrophils # Man Lymphocytes # (Manual) Monocytes # (Manual) Eosinophils # (Manual) PT INR Fibrinogen dRVVT Confirm Interp Factor V Activity POC ABG pH POC ABG pCO2 POC ABG pO2 Sodium 130 L D Potassium Chloride 92.4 L Carbon Dioxide 20 L BUN 50 H Creatinine 1.6 H Glucose 589 H* POC Glucose Lactic Acid Calcium 7.8 L D Phosphorus Magnesium 1.60 L Direct Bilirubin AST ALT Alkaline Phosphatase Lactate Dehydrogenase Troponin T C-Reactive Protein Total Protein Albumin Prealbumin Triglycerides Cholesterol LDL Cholesterol Direct HDL Cholesterol Urine pH Urine WBC (Auto) Urine Creatinine Urine Total Protein Vancomycin Trough Rheumatoid Factor Complement C4 Miscellaneous Test Crossmatch 10/22/16 10/22/16 10/22/16 11:39 16:44 23:36 WBC RBC Hgb Hct MCV MCH MCHC RDW Plt Count Lymph % (Auto) [place] % (Auto) Lymph # [place] # Baso # Seg Neutrophils % Seg Neuts % (Manual) Lymphocytes % (Manual) Monocytes % (Manual) Eosinophils % (Manual) Basophils % (Manual) Nucleated RBC % Seg Neutrophils # Seg Neutrophils # Man Lymphocytes # (Manual) Monocytes # (Manual) Eosinophils # (Manual) PT INR Fibrinogen dRVVT Confirm Interp Factor V Activity POC ABG pH POC ABG pCO2 POC ABG pO2 Sodium Potassium Chloride Carbon Dioxide BUN Creatinine Glucose POC Glucose 142 H 163 H 123 H Lactic Acid Calcium Phosphorus Magnesium Direct Bilirubin AST ALT Alkaline Phosphatase Lactate Dehydrogenase Troponin T C-Reactive Protein Total Protein Albumin Prealbumin Triglycerides Cholesterol LDL Cholesterol Direct HDL Cholesterol Urine pH Urine WBC (Auto) Urine Creatinine Urine Total Protein Vancomycin Trough Rheumatoid Factor Complement C4 Miscellaneous Test Crossmatch 10/23/16 10/23/16 10/23/16 04:58 06:00 12:12 WBC RBC Hgb Hct MCV MCH MCHC RDW Plt Count Lymph % (Auto) [place] % (Auto) Lymph # Oliver # Baso # Seg Neutrophils % Seg Neuts % (Manual) Lymphocytes % (Manual) Monocytes % (Manual) Eosinophils % (Manual) Basophils % (Manual) Nucleated RBC % Seg Neutrophils # Seg Neutrophils # Man Lymphocytes # (Manual) Monocytes # (Manual) Eosinophils # (Manual) PT INR Fibrinogen dRVVT Confirm Interp Factor V Activity POC ABG pH POC ABG pCO2 POC ABG pO2 Sodium 133 L Potassium 3.5 L Chloride 96.1 L Carbon Dioxide 18 L BUN 76 H Creatinine 2.1 H Glucose POC Glucose 133 H 138 H Lactic Acid Calcium 8.3 L Phosphorus Magnesium Direct Bilirubin AST ALT Alkaline Phosphatase Lactate Dehydrogenase Troponin T C-Reactive Protein Total Protein Albumin Prealbumin Triglycerides Cholesterol LDL Cholesterol Direct HDL Cholesterol Urine pH Urine WBC (Auto) Urine Creatinine Urine Total Protein Vancomycin Trough Rheumatoid Factor Complement C4 Miscellaneous Test Crossmatch 10/23/16 10/23/16 10/24/16 16:53 23:37 04:00 WBC RBC Hgb Hct MCV MCH MCHC RDW Plt Count Lymph % (Auto) [place] % (Auto) Lymph # [place] # Baso # Seg Neutrophils % Seg Neuts % (Manual) Lymphocytes % (Manual) Monocytes % (Manual) Eosinophils % (Manual) Basophils % (Manual) Nucleated RBC % Seg Neutrophils # Seg Neutrophils # Man Lymphocytes # (Manual) Monocytes # (Manual) Eosinophils # (Manual) PT INR Fibrinogen dRVVT Confirm Interp Factor V Activity POC ABG pH POC ABG pCO2 POC ABG pO2 Sodium 131 L Potassium Chloride 94.5 L Carbon Dioxide 19 L BUN 97 H Creatinine 2.6 H Glucose 110 H POC Glucose 125 H 123 H Lactic Acid Calcium 8.3 L Phosphorus Magnesium Direct Bilirubin AST ALT Alkaline Phosphatase Lactate Dehydrogenase Troponin T C-Reactive Protein Total Protein Albumin Prealbumin Triglycerides Cholesterol LDL Cholesterol Direct HDL Cholesterol Urine pH Urine WBC (Auto) Urine Creatinine Urine Total Protein Vancomycin Trough Rheumatoid Factor Complement C4 Miscellaneous Test Crossmatch 10/24/16 10/24/16 10/24/16 07:49 11:39 17:52 WBC RBC Hgb 6.0 L Hct 19.7 L* MCV MCH MCHC RDW Plt Count Lymph % (Auto) [place] % (Auto) Lymph # [place] # Baso # Seg Neutrophils % Seg Neuts % (Manual) Lymphocytes % (Manual) Monocytes % (Manual) Eosinophils % (Manual) Basophils % (Manual) Nucleated RBC % Seg Neutrophils # Seg Neutrophils # Man Lymphocytes # (Manual) Monocytes # (Manual) Eosinophils # (Manual) PT INR Fibrinogen dRVVT Confirm Interp Factor V Activity POC ABG pH POC ABG pCO2 POC ABG pO2 Sodium Potassium Chloride Carbon Dioxide BUN Creatinine Glucose POC Glucose 106 H 158 H Lactic Acid Calcium Phosphorus Magnesium Direct Bilirubin AST ALT Alkaline Phosphatase Lactate Dehydrogenase Troponin T C-Reactive Protein Total Protein Albumin Prealbumin Triglycerides Cholesterol LDL Cholesterol Direct HDL Cholesterol Urine pH Urine WBC (Auto) Urine Creatinine Urine Total Protein Vancomycin Trough Rheumatoid Factor Complement C4 Miscellaneous Test Crossmatch 10/24/16 10/24/16 10/24/16 20:00 22:27 Unknown WBC RBC Hgb 9.4 L D Hct 27.5 L D MCV MCH MCHC RDW Plt Count Lymph % (Auto) [place] % (Auto) Lymph # [place] # Baso # Seg Neutrophils % Seg Neuts % (Manual) Lymphocytes % (Manual) Monocytes % (Manual) Eosinophils % (Manual) Basophils % (Manual) Nucleated RBC % Seg Neutrophils # Seg Neutrophils # Man Lymphocytes # (Manual) Monocytes # (Manual) Eosinophils # (Manual) PT INR Fibrinogen dRVVT Confirm Interp Factor V Activity POC ABG pH POC ABG pCO2 POC ABG pO2 Sodium Potassium Chloride Carbon Dioxide BUN Creatinine Glucose POC Glucose 125 H Lactic Acid Calcium Phosphorus Magnesium Direct Bilirubin AST ALT Alkaline Phosphatase Lactate Dehydrogenase Troponin T C-Reactive Protein Total Protein Albumin Prealbumin Triglycerides Cholesterol LDL Cholesterol Direct HDL Cholesterol Urine pH Urine WBC (Auto) Urine Creatinine Urine Total Protein Vancomycin Trough Rheumatoid Factor Complement C4 Miscellaneous Test Crossmatch See Detail 10/25/16 10/25/16 10/25/16 04:00 04:00 04:00 WBC 14.2 H RBC 2.98 L Hgb 9.0 L Hct 26.2 L MCV MCH MCHC RDW 16.6 H Plt Count Lymph % (Auto) [place] % (Auto) 10.7 H Lymph # Oliver # 1.5 H Baso # Seg Neutrophils % 73.6 H Seg Neuts % (Manual) Lymphocytes % (Manual) Monocytes % (Manual) Eosinophils % (Manual) Basophils % (Manual) Nucleated RBC % Seg Neutrophils # 10.5 H Seg Neutrophils # Man Lymphocytes # (Manual) Monocytes # (Manual) Eosinophils # (Manual) PT INR Fibrinogen dRVVT Confirm Interp Factor V Activity POC ABG pH POC ABG pCO2 POC ABG pO2 Sodium 132 L Potassium Chloride 94.7 L Carbon Dioxide BUN 51 H Creatinine 1.6 H Glucose 130 H POC Glucose Lactic Acid Calcium 8.3 L Phosphorus 1.60 L D Magnesium Direct Bilirubin AST ALT Alkaline Phosphatase Lactate Dehydrogenase Troponin T C-Reactive Protein Total Protein Albumin Prealbumin Triglycerides Cholesterol LDL Cholesterol Direct HDL Cholesterol Urine pH Urine WBC (Auto) Urine Creatinine Urine Total Protein Vancomycin Trough Rheumatoid Factor Complement C4 Miscellaneous Test Crossmatch 10/25/16 10/25/16 10/25/16 04:32 11:48 17:22 WBC RBC Hgb Hct MCV MCH MCHC RDW Plt Count Lymph % (Auto) [place] % (Auto) Lymph # [place] # Baso # Seg Neutrophils % Seg Neuts % (Manual) Lymphocytes % (Manual) Monocytes % (Manual) Eosinophils % (Manual) Basophils % (Manual) Nucleated RBC % Seg Neutrophils # Seg Neutrophils # Man Lymphocytes # (Manual) Monocytes # (Manual) Eosinophils # (Manual) PT INR Fibrinogen dRVVT Confirm Interp Factor V Activity POC ABG pH POC ABG pCO2 POC ABG pO2 Sodium Potassium Chloride Carbon Dioxide BUN Creatinine Glucose POC Glucose 124 H 171 H 120 H Lactic Acid Calcium Phosphorus Magnesium Direct Bilirubin AST ALT Alkaline Phosphatase Lactate Dehydrogenase Troponin T C-Reactive Protein Total Protein Albumin Prealbumin Triglycerides Cholesterol LDL Cholesterol Direct HDL Cholesterol Urine pH Urine WBC (Auto) Urine Creatinine Urine Total Protein Vancomycin Trough Rheumatoid Factor Complement C4 Miscellaneous Test Crossmatch 10/26/16 10/26/16 10/26/16 04:54 07:06 07:06 WBC 16.9 H RBC 3.06 L Hgb 9.1 L Hct 26.9 L MCV MCH MCHC RDW 16.9 H Plt Count Lymph % (Auto) [place] % (Auto) Lymph # [place] # Baso # Seg Neutrophils % Seg Neuts % (Manual) 71.0 H Lymphocytes % (Manual) 5.0 L Monocytes % (Manual) 12.0 H Eosinophils % (Manual) Basophils % (Manual) Nucleated RBC % Seg Neutrophils # Seg Neutrophils # Man 12.0 H Lymphocytes # (Manual) 0.8 L Monocytes # (Manual) 2.0 H Eosinophils # (Manual) PT INR Fibrinogen dRVVT Confirm Interp Factor V Activity POC ABG pH POC ABG pCO2 POC ABG pO2 Sodium 135 L Potassium Chloride 97.1 L Carbon Dioxide BUN 73 H Creatinine 2.2 H Glucose 117 H POC Glucose 123 H Lactic Acid Calcium Phosphorus 1.70 L Magnesium Direct Bilirubin AST ALT Alkaline Phosphatase Lactate Dehydrogenase Troponin T C-Reactive Protein Total Protein Albumin Prealbumin Triglycerides Cholesterol LDL Cholesterol Direct HDL Cholesterol Urine pH Urine WBC (Auto) Urine Creatinine Urine Total Protein Vancomycin Trough Rheumatoid Factor Complement C4 Miscellaneous Test Crossmatch 10/26/16 10/26/16 10/26/16 12:12 17:29 23:42 WBC RBC Hgb Hct MCV MCH MCHC RDW Plt Count Lymph % (Auto) [place] % (Auto) Lymph # [place] # Baso # Seg Neutrophils % Seg Neuts % (Manual) Lymphocytes % (Manual) Monocytes % (Manual) Eosinophils % (Manual) Basophils % (Manual) Nucleated RBC % Seg Neutrophils # Seg Neutrophils # Man Lymphocytes # (Manual) Monocytes # (Manual) Eosinophils # (Manual) PT INR Fibrinogen dRVVT Confirm Interp Factor V Activity POC ABG pH POC ABG pCO2 POC ABG pO2 Sodium Potassium Chloride Carbon Dioxide BUN Creatinine Glucose POC Glucose 126 H 161 H 118 H Lactic Acid Calcium Phosphorus Magnesium Direct Bilirubin AST ALT Alkaline Phosphatase Lactate Dehydrogenase Troponin T C-Reactive Protein Total Protein Albumin Prealbumin Triglycerides Cholesterol LDL Cholesterol Direct HDL Cholesterol Urine pH Urine WBC (Auto) Urine Creatinine Urine Total Protein Vancomycin Trough Rheumatoid Factor Complement C4 Miscellaneous Test Crossmatch 10/27/16 10/27/16 10/27/16 05:03 06:30 06:30 WBC 13.9 H RBC 3.09 L Hgb 9.2 L Hct 27.5 L MCV MCH MCHC RDW 17.0 H Plt Count Lymph % (Auto) [place] % (Auto) Lymph # [place] # Baso # Seg Neutrophils % Seg Neuts % (Manual) 78.0 H Lymphocytes % (Manual) Monocytes % (Manual) Eosinophils % (Manual) Basophils % (Manual) Nucleated RBC % 2.0 H Seg Neutrophils # Seg Neutrophils # Man 10.8 H Lymphocytes # (Manual) Monocytes # (Manual) 1.0 H Eosinophils # (Manual) PT INR Fibrinogen dRVVT Confirm Interp Factor V Activity POC ABG pH POC ABG pCO2 POC ABG pO2 Sodium Potassium Chloride Carbon Dioxide BUN 40 H Creatinine 1.5 H Glucose 135 H POC Glucose 107 H Lactic Acid Calcium 8.3 L Phosphorus 1.30 L D Magnesium Direct Bilirubin AST ALT Alkaline Phosphatase Lactate Dehydrogenase Troponin T C-Reactive Protein Total Protein Albumin Prealbumin Triglycerides Cholesterol LDL Cholesterol Direct HDL Cholesterol Urine pH Urine WBC (Auto) Urine Creatinine Urine Total Protein Vancomycin Trough Rheumatoid Factor Complement C4 Miscellaneous Test Crossmatch 10/27/16 10/27/16 10/27/16 13:27 18:07 23:40 WBC RBC Hgb Hct MCV MCH MCHC RDW Plt Count Lymph % (Auto) [place] % (Auto) Lymph # [place] # Baso # Seg Neutrophils % Seg Neuts % (Manual) Lymphocytes % (Manual) Monocytes % (Manual) Eosinophils % (Manual) Basophils % (Manual) Nucleated RBC % Seg Neutrophils # Seg Neutrophils # Man Lymphocytes # (Manual) Monocytes # (Manual) Eosinophils # (Manual) PT INR Fibrinogen dRVVT Confirm Interp Factor V Activity POC ABG pH POC ABG pCO2 POC ABG pO2 Sodium Potassium Chloride Carbon Dioxide BUN Creatinine Glucose POC Glucose 117 H 121 H 118 H Lactic Acid Calcium Phosphorus Magnesium Direct Bilirubin AST ALT Alkaline Phosphatase Lactate Dehydrogenase Troponin T C-Reactive Protein Total Protein Albumin Prealbumin Triglycerides Cholesterol LDL Cholesterol Direct HDL Cholesterol Urine pH Urine WBC (Auto) Urine Creatinine Urine Total Protein Vancomycin Trough Rheumatoid Factor Complement C4 Miscellaneous Test Crossmatch 10/28/16 10/28/16 10/28/16 05:48 06:45 06:45 WBC 14.7 H RBC 3.05 L Hgb 9.0 L Hct 26.9 L MCV MCH MCHC RDW 16.8 H Plt Count Lymph % (Auto) 8.2 L [place] % (Auto) 8.4 H Lymph # Oliver # 1.2 H Baso # Seg Neutrophils % 81.9 H Seg Neuts % (Manual) Lymphocytes % (Manual) Monocytes % (Manual) Eosinophils % (Manual) Basophils % (Manual) Nucleated RBC % Seg Neutrophils # 12.1 H Seg Neutrophils # Man Lymphocytes # (Manual) Monocytes # (Manual) Eosinophils # (Manual) PT INR Fibrinogen dRVVT Confirm Interp Factor V Activity POC ABG pH POC ABG pCO2 POC ABG pO2 Sodium Potassium Chloride Carbon Dioxide BUN 60 H Creatinine 1.9 H Glucose 120 H POC Glucose 114 H Lactic Acid Calcium Phosphorus Magnesium Direct Bilirubin AST ALT Alkaline Phosphatase Lactate Dehydrogenase Troponin T C-Reactive Protein Total Protein Albumin Prealbumin Triglycerides Cholesterol LDL Cholesterol Direct HDL Cholesterol Urine pH Urine WBC (Auto) Urine Creatinine Urine Total Protein Vancomycin Trough Rheumatoid Factor Complement C4 Miscellaneous Test Crossmatch 10/28/16 10/28/16 10/29/16 17:08 23:50 05:10 WBC RBC Hgb Hct MCV MCH MCHC RDW Plt Count Lymph % (Auto) [place] % (Auto) Lymph # [place] # Baso # Seg Neutrophils % Seg Neuts % (Manual) Lymphocytes % (Manual) Monocytes % (Manual) Eosinophils % (Manual) Basophils % (Manual) Nucleated RBC % Seg Neutrophils # Seg Neutrophils # Man Lymphocytes # (Manual) Monocytes # (Manual) Eosinophils # (Manual) PT INR Fibrinogen dRVVT Confirm Interp Factor V Activity POC ABG pH POC ABG pCO2 POC ABG pO2 Sodium Potassium Chloride Carbon Dioxide BUN Creatinine Glucose POC Glucose 109 H 110 H 124 H Lactic Acid Calcium Phosphorus Magnesium Direct Bilirubin AST ALT Alkaline Phosphatase Lactate Dehydrogenase Troponin T C-Reactive Protein Total Protein Albumin Prealbumin Triglycerides Cholesterol LDL Cholesterol Direct HDL Cholesterol Urine pH Urine WBC (Auto) Urine Creatinine Urine Total Protein Vancomycin Trough Rheumatoid Factor Complement C4 Miscellaneous Test Crossmatch 10/29/16 10/29/16 10/29/16 07:45 07:45 12:19 WBC 14.7 H RBC 3.15 L Hgb 9.3 L Hct 28.9 L MCV MCH MCHC RDW 17.0 H Plt Count Lymph % (Auto) 11.9 L [place] % (Auto) 8.6 H Lymph # Oliver # 1.3 H Baso # Seg Neutrophils % 78.1 H Seg Neuts % (Manual) Lymphocytes % (Manual) Monocytes % (Manual) Eosinophils % (Manual) Basophils % (Manual) Nucleated RBC % Seg Neutrophils # 11.4 H Seg Neutrophils # Man Lymphocytes # (Manual) Monocytes # (Manual) Eosinophils # (Manual) PT INR Fibrinogen dRVVT Confirm Interp Factor V Activity POC ABG pH POC ABG pCO2 POC ABG pO2 Sodium Potassium 5.1 H Chloride Carbon Dioxide 19 L BUN 78 H Creatinine 2.2 H Glucose 116 H POC Glucose 118 H Lactic Acid Calcium Phosphorus Magnesium Direct Bilirubin AST ALT Alkaline Phosphatase Lactate Dehydrogenase Troponin T C-Reactive Protein Total Protein Albumin Prealbumin Triglycerides Cholesterol LDL Cholesterol Direct HDL Cholesterol Urine pH Urine WBC (Auto) Urine Creatinine Urine Total Protein Vancomycin Trough Rheumatoid Factor Complement C4 Miscellaneous Test Crossmatch 10/29/16 10/30/16 10/30/16 17:49 01:52 03:28 WBC RBC Hgb Hct MCV MCH MCHC RDW Plt Count Lymph % (Auto) [place] % (Auto) Lymph # [place] # Baso # Seg Neutrophils % Seg Neuts % (Manual) Lymphocytes % (Manual) Monocytes % (Manual) Eosinophils % (Manual) Basophils % (Manual) Nucleated RBC % Seg Neutrophils # Seg Neutrophils # Man Lymphocytes # (Manual) Monocytes # (Manual) Eosinophils # (Manual) PT INR Fibrinogen dRVVT Confirm Interp Factor V Activity POC ABG pH POC ABG pCO2 POC ABG pO2 Sodium Potassium 5.4 H Chloride 97.5 L Carbon Dioxide 19 L BUN 90 H Creatinine 2.5 H Glucose POC Glucose 120 H 129 H Lactic Acid Calcium Phosphorus 5.20 H Magnesium Direct Bilirubin AST ALT Alkaline Phosphatase Lactate Dehydrogenase Troponin T C-Reactive Protein Total Protein Albumin Prealbumin Triglycerides Cholesterol LDL Cholesterol Direct HDL Cholesterol Urine pH Urine WBC (Auto) Urine Creatinine Urine Total Protein Vancomycin Trough Rheumatoid Factor Complement C4 Miscellaneous Test Crossmatch 10/30/16 10/30/16 10/30/16 03:28 08:19 08:19 WBC 11.6 H 15.9 H RBC 2.75 L 2.82 L Hgb 7.9 L 8.3 L Hct 24.2 L 25.2 L MCV MCH MCHC RDW 16.7 H 17.2 H Plt Count Lymph % (Auto) [place] % (Auto) 9.8 H Lymph # Oliver # 1.1 H Baso # Seg Neutrophils % 74.2 H Seg Neuts % (Manual) Lymphocytes % (Manual) Monocytes % (Manual) Eosinophils % (Manual) Basophils % (Manual) Nucleated RBC % Seg Neutrophils # 8.6 H Seg Neutrophils # Man Lymphocytes # (Manual) Monocytes # (Manual) Eosinophils # (Manual) PT INR Fibrinogen dRVVT Confirm Interp Factor V Activity POC ABG pH POC ABG pCO2 POC ABG pO2 Sodium Potassium 5.3 H Chloride 97.4 L Carbon Dioxide 19 L BUN 93 H Creatinine 2.6 H Glucose POC Glucose Lactic Acid Calcium Phosphorus Magnesium Direct Bilirubin AST ALT Alkaline Phosphatase Lactate Dehydrogenase Troponin T C-Reactive Protein Total Protein Albumin Prealbumin Triglycerides Cholesterol LDL Cholesterol Direct HDL Cholesterol Urine pH Urine WBC (Auto) Urine Creatinine Urine Total Protein Vancomycin Trough Rheumatoid Factor Complement C4 Miscellaneous Test Crossmatch 10/30/16 10/30/16 10/31/16 17:11 23:56 00:40 WBC RBC Hgb Hct MCV MCH MCHC RDW Plt Count Lymph % (Auto) [place] % (Auto) Lymph # [place] # Baso # Seg Neutrophils % Seg Neuts % (Manual) Lymphocytes % (Manual) Monocytes % (Manual) Eosinophils % (Manual) Basophils % (Manual) Nucleated RBC % Seg Neutrophils # Seg Neutrophils # Man Lymphocytes # (Manual) Monocytes # (Manual) Eosinophils # (Manual) PT INR Fibrinogen dRVVT Confirm Interp Factor V Activity POC ABG pH POC ABG pCO2 POC ABG pO2 Sodium Potassium Chloride Carbon Dioxide BUN Creatinine Glucose POC Glucose 106 H 117 H 120 H Lactic Acid Calcium Phosphorus Magnesium Direct Bilirubin AST ALT Alkaline Phosphatase Lactate Dehydrogenase Troponin T C-Reactive Protein Total Protein Albumin Prealbumin Triglycerides Cholesterol LDL Cholesterol Direct HDL Cholesterol Urine pH Urine WBC (Auto) Urine Creatinine Urine Total Protein Vancomycin Trough Rheumatoid Factor Complement C4 Miscellaneous Test Crossmatch 10/31/16 10/31/16 10/31/16 05:43 07:15 07:15 WBC 12.1 H RBC 2.63 L Hgb 7.7 L Hct 23.3 L MCV MCH MCHC RDW 16.7 H Plt Count Lymph % (Auto) 11.7 L [place] % (Auto) 7.7 H Lymph # [place] # 0.9 H Baso # Seg Neutrophils % 78.0 H Seg Neuts % (Manual) Lymphocytes % (Manual) Monocytes % (Manual) Eosinophils % (Manual) Basophils % (Manual) Nucleated RBC % Seg Neutrophils # 9.4 H Seg Neutrophils # Man Lymphocytes # (Manual) Monocytes # (Manual) Eosinophils # (Manual) PT INR Fibrinogen dRVVT Confirm Interp Factor V Activity POC ABG pH POC ABG pCO2 POC ABG pO2 Sodium Potassium Chloride 96.4 L Carbon Dioxide 21 L BUN 99 H Creatinine 2.6 H Glucose 144 H POC Glucose 125 H Lactic Acid Calcium Phosphorus 4.80 H Magnesium Direct Bilirubin AST ALT Alkaline Phosphatase Lactate Dehydrogenase Troponin T C-Reactive Protein Total Protein Albumin Prealbumin Triglycerides Cholesterol LDL Cholesterol Direct HDL Cholesterol Urine pH Urine WBC (Auto) Urine Creatinine Urine Total Protein Vancomycin Trough Rheumatoid Factor Complement C4 Miscellaneous Test Crossmatch 10/31/16 10/31/16 11/01/16 11:46 18:34 00:20 WBC RBC Hgb Hct MCV MCH MCHC RDW Plt Count Lymph % (Auto) [place] % (Auto) Lymph # [place] # Baso # Seg Neutrophils % Seg Neuts % (Manual) Lymphocytes % (Manual) Monocytes % (Manual) Eosinophils % (Manual) Basophils % (Manual) Nucleated RBC % Seg Neutrophils # Seg Neutrophils # Man Lymphocytes # (Manual) Monocytes # (Manual) Eosinophils # (Manual) PT INR Fibrinogen dRVVT Confirm Interp Factor V Activity POC ABG pH POC ABG pCO2 POC ABG pO2 Sodium Potassium Chloride Carbon Dioxide BUN Creatinine Glucose POC Glucose 159 H 140 H 132 H Lactic Acid Calcium Phosphorus Magnesium Direct Bilirubin AST ALT Alkaline Phosphatase Lactate Dehydrogenase Troponin T C-Reactive Protein Total Protein Albumin Prealbumin Triglycerides Cholesterol LDL Cholesterol Direct HDL Cholesterol Urine pH Urine WBC (Auto) Urine Creatinine Urine Total Protein Vancomycin Trough Rheumatoid Factor Complement C4 Miscellaneous Test Crossmatch 11/01/16 11/01/16 11/01/16 04:55 04:55 06:11 WBC 11.2 H RBC 2.68 L Hgb 7.5 L Hct 23.7 L MCV MCH MCHC RDW 16.1 H Plt Count Lymph % (Auto) [place] % (Auto) 9.8 H Lymph # [place] # 1.1 H Baso # Seg Neutrophils % 70.8 H Seg Neuts % (Manual) Lymphocytes % (Manual) Monocytes % (Manual) Eosinophils % (Manual) Basophils % (Manual) Nucleated RBC % Seg Neutrophils # 7.9 H Seg Neutrophils # Man Lymphocytes # (Manual) Monocytes # (Manual) Eosinophils # (Manual) PT INR Fibrinogen dRVVT Confirm Interp Factor V Activity POC ABG pH POC ABG pCO2 POC ABG pO2 Sodium Potassium 3.3 L D Chloride Carbon Dioxide BUN 61 H Creatinine 1.9 H Glucose 114 H POC Glucose 115 H Lactic Acid Calcium Phosphorus 1.80 L D Magnesium Direct Bilirubin AST ALT Alkaline Phosphatase Lactate Dehydrogenase Troponin T C-Reactive Protein Total Protein Albumin Prealbumin Triglycerides Cholesterol LDL Cholesterol Direct HDL Cholesterol Urine pH Urine WBC (Auto) Urine Creatinine Urine Total Protein Vancomycin Trough Rheumatoid Factor Complement C4 Miscellaneous Test Crossmatch 11/01/16 11/01/16 11/01/16 12:29 18:23 23:58 WBC RBC Hgb Hct MCV MCH MCHC RDW Plt Count Lymph % (Auto) [place] % (Auto) Lymph # [place] # Baso # Seg Neutrophils % Seg Neuts % (Manual) Lymphocytes % (Manual) Monocytes % (Manual) Eosinophils % (Manual) Basophils % (Manual) Nucleated RBC % Seg Neutrophils # Seg Neutrophils # Man Lymphocytes # (Manual) Monocytes # (Manual) Eosinophils # (Manual) PT INR Fibrinogen dRVVT Confirm Interp Factor V Activity POC ABG pH POC ABG pCO2 POC ABG pO2 Sodium Potassium Chloride Carbon Dioxide BUN Creatinine Glucose POC Glucose 142 H 143 H 128 H Lactic Acid Calcium Phosphorus Magnesium Direct Bilirubin AST ALT Alkaline Phosphatase Lactate Dehydrogenase Troponin T C-Reactive Protein Total Protein Albumin Prealbumin Triglycerides Cholesterol LDL Cholesterol Direct HDL Cholesterol Urine pH Urine WBC (Auto) Urine Creatinine Urine Total Protein Vancomycin Trough Rheumatoid Factor Complement C4 Miscellaneous Test Crossmatch 11/02/16 11/02/16 11/02/16 04:16 05:29 11:58 WBC RBC Hgb Hct MCV MCH MCHC RDW Plt Count Lymph % (Auto) [place] % (Auto) Lymph # [place] # Baso # Seg Neutrophils % Seg Neuts % (Manual) Lymphocytes % (Manual) Monocytes % (Manual) Eosinophils % (Manual) Basophils % (Manual) Nucleated RBC % Seg Neutrophils # Seg Neutrophils # Man Lymphocytes # (Manual) Monocytes # (Manual) Eosinophils # (Manual) PT INR Fibrinogen dRVVT Confirm Interp Factor V Activity POC ABG pH POC ABG pCO2 POC ABG pO2 Sodium Potassium 3.1 L Chloride Carbon Dioxide BUN 73 H Creatinine 2.3 H Glucose 112 H POC Glucose 135 H 149 H Lactic Acid Calcium Phosphorus Magnesium Direct Bilirubin AST ALT Alkaline Phosphatase Lactate Dehydrogenase Troponin T C-Reactive Protein Total Protein Albumin Prealbumin Triglycerides Cholesterol LDL Cholesterol Direct HDL Cholesterol Urine pH Urine WBC (Auto) Urine Creatinine Urine Total Protein Vancomycin Trough Rheumatoid Factor Complement C4 Miscellaneous Test Crossmatch 11/02/16 11/02/16 11/03/16 17:42 22:54 06:00 WBC RBC Hgb Hct MCV MCH MCHC RDW Plt Count Lymph % (Auto) [place] % (Auto) Lymph # [place] # Baso # Seg Neutrophils % Seg Neuts % (Manual) Lymphocytes % (Manual) Monocytes % (Manual) Eosinophils % (Manual) Basophils % (Manual) Nucleated RBC % Seg Neutrophils # Seg Neutrophils # Man Lymphocytes # (Manual) Monocytes # (Manual) Eosinophils # (Manual) PT INR Fibrinogen dRVVT Confirm Interp Factor V Activity POC ABG pH POC ABG pCO2 POC ABG pO2 Sodium Potassium Chloride 96.7 L Carbon Dioxide BUN 41 H Creatinine 1.5 H Glucose 145 H POC Glucose 182 H 115 H Lactic Acid Calcium Phosphorus 1.60 L D Magnesium 1.50 L Direct Bilirubin AST ALT Alkaline Phosphatase Lactate Dehydrogenase Troponin T C-Reactive Protein Total Protein Albumin Prealbumin Triglycerides Cholesterol LDL Cholesterol Direct HDL Cholesterol Urine pH Urine WBC (Auto) Urine Creatinine Urine Total Protein Vancomycin Trough Rheumatoid Factor Complement C4 Miscellaneous Test Crossmatch 11/03/16 11/03/16 11/03/16 11:53 17:45 23:37 WBC RBC Hgb Hct MCV MCH MCHC RDW Plt Count Lymph % (Auto) [place] % (Auto) Lymph # [place] # Baso # Seg Neutrophils % Seg Neuts % (Manual) Lymphocytes % (Manual) Monocytes % (Manual) Eosinophils % (Manual) Basophils % (Manual) Nucleated RBC % Seg Neutrophils # Seg Neutrophils # Man Lymphocytes # (Manual) Monocytes # (Manual) Eosinophils # (Manual) PT INR Fibrinogen dRVVT Confirm Interp Factor V Activity POC ABG pH POC ABG pCO2 POC ABG pO2 Sodium Potassium Chloride Carbon Dioxide BUN Creatinine Glucose POC Glucose 131 H 134 H 113 H Lactic Acid Calcium Phosphorus Magnesium Direct Bilirubin AST ALT Alkaline Phosphatase Lactate Dehydrogenase Troponin T C-Reactive Protein Total Protein Albumin Prealbumin Triglycerides Cholesterol LDL Cholesterol Direct HDL Cholesterol Urine pH Urine WBC (Auto) Urine Creatinine Urine Total Protein Vancomycin Trough Rheumatoid Factor Complement C4 Miscellaneous Test Crossmatch 11/04/16 11/04/16 11/04/16 05:41 06:00 12:10 WBC RBC Hgb Hct MCV MCH MCHC RDW Plt Count Lymph % (Auto) [place] % (Auto) Lymph # [place] # Baso # Seg Neutrophils % Seg Neuts % (Manual) Lymphocytes % (Manual) Monocytes % (Manual) Eosinophils % (Manual) Basophils % (Manual) Nucleated RBC % Seg Neutrophils # Seg Neutrophils # Man Lymphocytes # (Manual) Monocytes # (Manual) Eosinophils # (Manual) PT INR Fibrinogen dRVVT Confirm Interp Factor V Activity POC ABG pH POC ABG pCO2 POC ABG pO2 Sodium Potassium Chloride 96.7 L Carbon Dioxide BUN 52 H Creatinine 1.9 H Glucose 126 H POC Glucose 137 H 191 H Lactic Acid Calcium Phosphorus Magnesium Direct Bilirubin AST ALT Alkaline Phosphatase Lactate Dehydrogenase Troponin T C-Reactive Protein Total Protein Albumin Prealbumin Triglycerides Cholesterol LDL Cholesterol Direct HDL Cholesterol Urine pH Urine WBC (Auto) Urine Creatinine Urine Total Protein Vancomycin Trough Rheumatoid Factor Complement C4 Miscellaneous Test Crossmatch 11/04/16 11/05/16 11/05/16 22:57 03:10 05:10 WBC RBC Hgb Hct MCV MCH MCHC RDW Plt Count Lymph % (Auto) Oliver % (Auto) Lymph # Oliver # Baso # Seg Neutrophils % Seg Neuts % (Manual) Lymphocytes % (Manual) Monocytes % (Manual) Eosinophils % (Manual) Basophils % (Manual) Nucleated RBC % Seg Neutrophils # Seg Neutrophils # Man Lymphocytes # (Manual) Monocytes # (Manual) Eosinophils # (Manual) PT INR Fibrinogen dRVVT Confirm Interp Factor V Activity POC ABG pH POC ABG pCO2 POC ABG pO2 Sodium 136 L Potassium Chloride 97.2 L Carbon Dioxide BUN 32 H Creatinine 1.3 H Glucose 123 H POC Glucose 125 H 108 H Lactic Acid Calcium 7.8 L Phosphorus Magnesium Direct Bilirubin AST ALT Alkaline Phosphatase Lactate Dehydrogenase Troponin T C-Reactive Protein Total Protein Albumin Prealbumin Triglycerides Cholesterol LDL Cholesterol Direct HDL Cholesterol Urine pH Urine WBC (Auto) Urine Creatinine Urine Total Protein Vancomycin Trough Rheumatoid Factor Complement C4 Miscellaneous Test Crossmatch 11/05/16 11/05/16 11/05/16 12:23 13:09 13:25 WBC RBC Hgb Hct MCV MCH MCHC RDW Plt Count Lymph % (Auto) Oliver % (Auto) Lymph # Oliver # Baso # Seg Neutrophils % Seg Neuts % (Manual) Lymphocytes % (Manual) Monocytes % (Manual) Eosinophils % (Manual) Basophils % (Manual) Nucleated RBC % Seg Neutrophils # Seg Neutrophils # Man Lymphocytes # (Manual) Monocytes # (Manual) Eosinophils # (Manual) PT INR Fibrinogen dRVVT Confirm Interp Factor V Activity POC ABG pH POC ABG pCO2 POC ABG pO2 Sodium Potassium Chloride Carbon Dioxide BUN Creatinine Glucose POC Glucose 124 H Lactic Acid Calcium Phosphorus Magnesium Direct Bilirubin AST ALT Alkaline Phosphatase Lactate Dehydrogenase Troponin T C-Reactive Protein 11.40 H Total Protein Albumin Prealbumin Triglycerides Cholesterol LDL Cholesterol Direct HDL Cholesterol Urine pH 9.0 H Urine WBC (Auto) Urine Creatinine Urine Total Protein Vancomycin Trough Rheumatoid Factor Complement C4 Miscellaneous Test Crossmatch 11/05/16 11/05/16 11/05/16 13:25 17:54 23:42 WBC RBC Hgb Hct MCV MCH MCHC RDW Plt Count Lymph % (Auto) Oliver % (Auto) Lymph # Oliver # Baso # Seg Neutrophils % Seg Neuts % (Manual) Lymphocytes % (Manual) Monocytes % (Manual) Eosinophils % (Manual) Basophils % (Manual) Nucleated RBC % Seg Neutrophils # Seg Neutrophils # Man Lymphocytes # (Manual) Monocytes # (Manual) Eosinophils # (Manual) PT INR Fibrinogen dRVVT Confirm Interp Factor V Activity POC ABG pH POC ABG pCO2 POC ABG pO2 Sodium Potassium Chloride Carbon Dioxide BUN Creatinine Glucose POC Glucose 114 H 134 H Lactic Acid Calcium Phosphorus Magnesium Direct Bilirubin AST ALT Alkaline Phosphatase Lactate Dehydrogenase Troponin T C-Reactive Protein Total Protein Albumin Prealbumin Triglycerides Cholesterol LDL Cholesterol Direct HDL Cholesterol Urine pH Urine WBC (Auto) Urine Creatinine Urine Total Protein Vancomycin Trough Rheumatoid Factor Complement C4 Miscellaneous Test Flexitest 1 H Crossmatch 11/06/16 11/06/16 11/06/16 04:56 06:25 06:25 WBC RBC 2.50 L Hgb 7.3 L Hct 22.5 L MCV MCH MCHC RDW 16.9 H Plt Count Lymph % (Auto) Oliver % (Auto) 10.5 H Lymph # Oliver # 1.1 H Baso # Seg Neutrophils % Seg Neuts % (Manual) Lymphocytes % (Manual) Monocytes % (Manual) Eosinophils % (Manual) Basophils % (Manual) Nucleated RBC % Seg Neutrophils # Seg Neutrophils # Man Lymphocytes # (Manual) Monocytes # (Manual) Eosinophils # (Manual) PT INR Fibrinogen dRVVT Confirm Interp Factor V Activity POC ABG pH POC ABG pCO2 POC ABG pO2 Sodium Potassium 5.1 H Chloride 95.9 L Carbon Dioxide BUN 52 H Creatinine 1.8 H Glucose 117 H POC Glucose 120 H Lactic Acid Calcium Phosphorus Magnesium Direct Bilirubin AST 103 H ALT 77 H Alkaline Phosphatase 285 H Lactate Dehydrogenase Troponin T C-Reactive Protein Total Protein 6.2 L Albumin 1.8 L Prealbumin 0.180 L Triglycerides Cholesterol LDL Cholesterol Direct HDL Cholesterol Urine pH Urine WBC (Auto) Urine Creatinine Urine Total Protein Vancomycin Trough Rheumatoid Factor Complement C4 Miscellaneous Test Crossmatch 11/06/16 11/06/16 11/06/16 11:56 17:14 23:52 WBC RBC Hgb Hct MCV MCH MCHC RDW Plt Count Lymph % (Auto) Oliver % (Auto) Lymph # Oliver # Baso # Seg Neutrophils % Seg Neuts % (Manual) Lymphocytes % (Manual) Monocytes % (Manual) Eosinophils % (Manual) Basophils % (Manual) Nucleated RBC % Seg Neutrophils # Seg Neutrophils # Man Lymphocytes # (Manual) Monocytes # (Manual) Eosinophils # (Manual) PT INR Fibrinogen dRVVT Confirm Interp Factor V Activity POC ABG pH POC ABG pCO2 POC ABG pO2 Sodium Potassium Chloride Carbon Dioxide BUN Creatinine Glucose POC Glucose 141 H 125 H 130 H Lactic Acid Calcium Phosphorus Magnesium Direct Bilirubin AST ALT Alkaline Phosphatase Lactate Dehydrogenase Troponin T C-Reactive Protein Total Protein Albumin Prealbumin Triglycerides Cholesterol LDL Cholesterol Direct HDL Cholesterol Urine pH Urine WBC (Auto) Urine Creatinine Urine Total Protein Vancomycin Trough Rheumatoid Factor Complement C4 Miscellaneous Test Crossmatch 11/07/16 11/07/16 11/07/16 06:30 06:30 09:37 WBC RBC 2.18 L Hgb 6.3 L Hct 19.7 L* MCV MCH MCHC RDW 16.8 H Plt Count Lymph % (Auto) Oliver % (Auto) 10.0 H Lymph # Oliver # 1.0 H Baso # Seg Neutrophils % Seg Neuts % (Manual) Lymphocytes % (Manual) Monocytes % (Manual) Eosinophils % (Manual) Basophils % (Manual) Nucleated RBC % Seg Neutrophils # Seg Neutrophils # Man Lymphocytes # (Manual) Monocytes # (Manual) Eosinophils # (Manual) PT INR Fibrinogen dRVVT Confirm Interp Factor V Activity POC ABG pH POC ABG pCO2 POC ABG pO2 Sodium 135 L Potassium Chloride 95.6 L Carbon Dioxide BUN 70 H Creatinine 2.0 H Glucose 126 H POC Glucose Lactic Acid Calcium Phosphorus Magnesium Direct Bilirubin AST ALT Alkaline Phosphatase Lactate Dehydrogenase Troponin T C-Reactive Protein Total Protein Albumin Prealbumin Triglycerides Cholesterol LDL Cholesterol Direct HDL Cholesterol Urine pH Urine WBC (Auto) Urine Creatinine Urine Total Protein Vancomycin Trough Rheumatoid Factor Complement C4 Miscellaneous Test Crossmatch See Detail 11/07/16 11/07/16 11/07/16 12:52 18:51 21:26 WBC RBC Hgb Hct MCV MCH MCHC RDW Plt Count Lymph % (Auto) Oliver % (Auto) Lymph # Oliver # Baso # Seg Neutrophils % Seg Neuts % (Manual) Lymphocytes % (Manual) Monocytes % (Manual) Eosinophils % (Manual) Basophils % (Manual) Nucleated RBC % Seg Neutrophils # Seg Neutrophils # Man Lymphocytes # (Manual) Monocytes # (Manual) Eosinophils # (Manual) PT INR Fibrinogen dRVVT Confirm Interp Factor V Activity POC ABG pH 7.523 H POC ABG pCO2 34.6 L POC ABG pO2 53 L Sodium Potassium Chloride Carbon Dioxide BUN Creatinine Glucose POC Glucose 142 H 155 H Lactic Acid Calcium Phosphorus Magnesium Direct Bilirubin AST ALT Alkaline Phosphatase Lactate Dehydrogenase Troponin T C-Reactive Protein Total Protein Albumin Prealbumin Triglycerides Cholesterol LDL Cholesterol Direct HDL Cholesterol Urine pH Urine WBC (Auto) Urine Creatinine Urine Total Protein Vancomycin Trough Rheumatoid Factor Complement C4 Miscellaneous Test Crossmatch 11/07/16 11/08/16 11/08/16 21:34 13:03 23:37 WBC RBC 2.63 L Hgb 7.7 L Hct 22.7 L MCV MCH MCHC RDW 17.0 H Plt Count Lymph % (Auto) Oliver % (Auto) Lymph # Oliver # Baso # Seg Neutrophils % Seg Neuts % (Manual) Lymphocytes % (Manual) Monocytes % (Manual) Eosinophils % (Manual) Basophils % (Manual) Nucleated RBC % Seg Neutrophils # Seg Neutrophils # Man Lymphocytes # (Manual) Monocytes # (Manual) Eosinophils # (Manual) PT INR Fibrinogen dRVVT Confirm Interp Factor V Activity POC ABG pH 7.478 H POC ABG pCO2 34.0 L POC ABG pO2 50 L Sodium Potassium Chloride Carbon Dioxide BUN Creatinine Glucose POC Glucose 113 H Lactic Acid Calcium Phosphorus Magnesium Direct Bilirubin AST ALT Alkaline Phosphatase Lactate Dehydrogenase Troponin T C-Reactive Protein Total Protein Albumin Prealbumin Triglycerides Cholesterol LDL Cholesterol Direct HDL Cholesterol Urine pH Urine WBC (Auto) Urine Creatinine Urine Total Protein Vancomycin Trough Rheumatoid Factor Complement C4 Miscellaneous Test Crossmatch 11/09/16 11/09/16 11/09/16 04:35 10:15 18:21 WBC RBC 2.68 L Hgb 7.8 L Hct 23.3 L MCV MCH MCHC RDW 17.0 H Plt Count Lymph % (Auto) Oliver % (Auto) 12.1 H Lymph # Oliver # 1.1 H Baso # Seg Neutrophils % Seg Neuts % (Manual) Lymphocytes % (Manual) Monocytes % (Manual) Eosinophils % (Manual) Basophils % (Manual) Nucleated RBC % Seg Neutrophils # Seg Neutrophils # Man Lymphocytes # (Manual) Monocytes # (Manual) Eosinophils # (Manual) PT INR Fibrinogen dRVVT Confirm Interp Factor V Activity POC ABG pH POC ABG pCO2 POC ABG pO2 Sodium Potassium Chloride Carbon Dioxide BUN 51 H Creatinine 1.8 H Glucose POC Glucose 60 L Lactic Acid Calcium 8.3 L Phosphorus Magnesium Direct Bilirubin AST ALT Alkaline Phosphatase Lactate Dehydrogenase Troponin T C-Reactive Protein Total Protein Albumin Prealbumin Triglycerides Cholesterol LDL Cholesterol Direct HDL Cholesterol Urine pH Urine WBC (Auto) Urine Creatinine Urine Total Protein Vancomycin Trough Rheumatoid Factor Complement C4 Miscellaneous Test Crossmatch 11/09/16 11/10/16 11/10/16 18:55 07:00 11:51 WBC RBC Hgb Hct MCV MCH MCHC RDW Plt Count Lymph % (Auto) [place] % (Auto) Lymph # Oliver # Baso # Seg Neutrophils % Seg Neuts % (Manual) Lymphocytes % (Manual) Monocytes % (Manual) Eosinophils % (Manual) Basophils % (Manual) Nucleated RBC % Seg Neutrophils # Seg Neutrophils # Man Lymphocytes # (Manual) Monocytes # (Manual) Eosinophils # (Manual) PT INR Fibrinogen dRVVT Confirm Interp Factor V Activity POC ABG pH POC ABG pCO2 POC ABG pO2 Sodium Potassium 3.0 L D Chloride 97.4 L Carbon Dioxide BUN 28 H Creatinine 1.3 H Glucose POC Glucose 68 L 120 H Lactic Acid Calcium 7.8 L Phosphorus Magnesium Direct Bilirubin AST ALT Alkaline Phosphatase Lactate Dehydrogenase Troponin T C-Reactive Protein Total Protein Albumin Prealbumin Triglycerides Cholesterol LDL Cholesterol Direct HDL Cholesterol Urine pH Urine WBC (Auto) Urine Creatinine Urine Total Protein Vancomycin Trough Rheumatoid Factor Complement C4 Miscellaneous Test Crossmatch 11/11/16 11/11/16 11/11/16 06:59 06:59 06:59 WBC RBC 2.81 L Hgb 8.1 L Hct 24.4 L MCV MCH MCHC RDW 16.4 H Plt Count Lymph % (Auto) Oliver % (Auto) 10.8 H Lymph # Oliver # 1.0 H Baso # Seg Neutrophils % Seg Neuts % (Manual) Lymphocytes % (Manual) Monocytes % (Manual) Eosinophils % (Manual) Basophils % (Manual) Nucleated RBC % Seg Neutrophils # Seg Neutrophils # Man Lymphocytes # (Manual) Monocytes # (Manual) Eosinophils # (Manual) PT INR Fibrinogen dRVVT Confirm Interp Factor V Activity POC ABG pH POC ABG pCO2 POC ABG pO2 Sodium 136 L Potassium Chloride 96.1 L Carbon Dioxide BUN 37 H Creatinine 1.8 H Glucose POC Glucose Lactic Acid Calcium Phosphorus Magnesium Direct Bilirubin AST ALT Alkaline Phosphatase Lactate Dehydrogenase 196 H Troponin T C-Reactive Protein Total Protein 6.1 L Albumin Prealbumin Triglycerides Cholesterol LDL Cholesterol Direct HDL Cholesterol Urine pH Urine WBC (Auto) Urine Creatinine Urine Total Protein Vancomycin Trough Rheumatoid Factor Complement C4 Miscellaneous Test Crossmatch 11/11/16 09:50 WBC RBC Hgb Hct MCV MCH MCHC RDW Plt Count Lymph % (Auto) [place] % (Auto) Lymph # Oliver # Baso # Seg Neutrophils % Seg Neuts % (Manual) Lymphocytes % (Manual) Monocytes % (Manual) Eosinophils % (Manual) Basophils % (Manual) Nucleated RBC % Seg Neutrophils # Seg Neutrophils # Man Lymphocytes # (Manual) Monocytes # (Manual) Eosinophils # (Manual) PT INR 1.18 H Fibrinogen dRVVT Confirm Interp Factor V Activity POC ABG pH POC ABG pCO2 POC ABG pO2 Sodium Potassium Chloride Carbon Dioxide BUN Creatinine Glucose POC Glucose Lactic Acid Calcium Phosphorus Magnesium Direct Bilirubin AST ALT Alkaline Phosphatase Lactate Dehydrogenase Troponin T C-Reactive Protein Total Protein Albumin Prealbumin Triglycerides Cholesterol LDL Cholesterol Direct HDL Cholesterol Urine pH Urine WBC (Auto) Urine Creatinine Urine Total Protein Vancomycin Trough Rheumatoid Factor Complement C4 Miscellaneous Test Crossmatch Allied health notes reviewed: RT
--- NOTE | 2016-11-11 12:47 | Progress Note ---
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 Recovering as expected. No evidence of continued abscess. Will continue to follow. Subjective Narrative: Patient is not responsive. Objective Vital Signs - 12hr 11/11/16 11/11/16 11/11/16 01:00 02:00 03:00 Temperature Pulse Rate 85 94 H 100 H Respiratory 17 16 11 L Rate Blood Pressure 138/85 140/92 186/111 O2 Sat by Pulse 100 Oximetry 11/11/16 11/11/16 11/11/16 04:00 05:01 05:39 Temperature 99.6 F Pulse Rate 99 H 107 H 89 Respiratory 15 18 Rate Blood Pressure 176/102 149/89 177/104 O2 Sat by Pulse 100 98 Oximetry 11/11/16 11/11/16 11/11/16 06:00 06:22 06:36 Temperature Pulse Rate 102 H 103 H 92 H Respiratory 18 Rate Blood Pressure 196/105 203/106 189/107 O2 Sat by Pulse 100 Oximetry 11/11/16 11/11/16 11/11/16 07:01 08:00 09:00 Temperature 97.9 F Pulse Rate 85 82 94 H Respiratory 17 16 23 Rate Blood Pressure 155/81 144/79 181/100 O2 Sat by Pulse 98 98 100 Oximetry 11/11/16 11/11/16 11/11/16 10:00 10:22 11:00 Temperature Pulse Rate 94 H 85 105 H Respiratory 20 26 H Rate Blood Pressure 184/100 148/73 192/105 O2 Sat by Pulse 100 100 Oximetry - General physical appearance well developed - Eyes PERRL, normal occular movement - ENT normal pinna, normal nares, other (Duboff tube in place) - Respiratory normal expansion, normal respiratory effort, other (Coarse breath sounds) - Abdomen soft, not tender, bowel sounds normal, other (Incisions covered with ostomy bag and draining) - Labs 11/11/16 06:59 11/11/16 06:59 Diabetes panel 11/11/16 11/11/16 Range/Units 06:59 06:59 Sodium 136 L (137-145) mmol/L Potassium 3.7 D (3.6-5.0) mmol/L Chloride 96.1 L (98-107) mmol/L Carbon Dioxide 26 (22-30) mmol/L BUN 37 H (7-17) mg/dL Creatinine 1.8 H (0.7-1.2) mg/dL Glucose 79 (65-100) mg/dL Calcium 8.5 (8.4-10.2) mg/dL Total Protein 6.1 L (6.3-8.2) g/dL Calcium panel 11/11/16 Range/Units 06:59 Calcium 8.5 (8.4-10.2) mg/dL Pituitary panel 11/11/16 Range/Units 06:59 Sodium 136 L (137-145) mmol/L Potassium 3.7 D (3.6-5.0) mmol/L Chloride 96.1 L (98-107) mmol/L Carbon Dioxide 26 (22-30) mmol/L BUN 37 H (7-17) mg/dL Creatinine 1.8 H (0.7-1.2) mg/dL Glucose 79 (65-100) mg/dL Calcium 8.5 (8.4-10.2) mg/dL Adrenal panel 11/11/16 11/11/16 Range/Units 06:59 06:59 Sodium 136 L (137-145) mmol/L Potassium 3.7 D (3.6-5.0) mmol/L Chloride 96.1 L (98-107) mmol/L Carbon Dioxide 26 (22-30) mmol/L BUN 37 H (7-17) mg/dL Creatinine 1.8 H (0.7-1.2) mg/dL Glucose 79 (65-100) mg/dL Calcium 8.5 (8.4-10.2) mg/dL Total Protein 6.1 L (6.3-8.2) g/dL
[2016-11-11] MEDS: TRANSDERM-SCOP TD SCH (14:31)
[2016-11-11] MEDS: VANCOMYCIN/NS 1 GM/250 ML 1 GM/250 ML BAG IV SCH (21:09)
[2016-11-11] MEDS: IMODIUM PO PRN (21:10)
[2016-11-12 05:27] LABS: Hematocrit 27.2 % (30.3-42.9); Hemoglobin 8.9 gm/dl (10.1-14.3)
[2016-11-12 05:34] LABS: Calcium 8.4 mg/dL (8.4-10.2)
--- NOTE | 2016-11-12 08:37 | Progress Note ---
Assessment and Plan Assessment and plan: 46-year-old woman with a history of hypertension, diabetes, asthma, hyperlipidemia, chronic kidney disease and anxiety , who was brought in by family because, she couldn't get her words out, her face was also twisted, she was admitted for acute CVA and accelerated hypertension, she had a hx of poor adherence with her medications, and uncontrolled htn. Patient's blood pressure systolically on admission was noted be greater than 260. TPA was started but this was discontinued after 5 minutes because her blood pressure became uncontrolled. The TPA was not initiated again because the patient was outside the TPA window. Fever tmax 100.3. ID Physician was reconsulted. I discussed case with her. Patient now on Cefepime and vancomycin Spoke with Dr. Eli of infectious disease. chest x-ray, blood cultures were unremarkable, urine cx growing E cloacea, ID and sens to follow,. fup blood cultures, patient does have a PICC line and a vasc cath, this may be possible etiology of infection, may need to consider exchanging them -still having high fevers, continue cefepime and vancomycin, -Severe Sepsis with septic shock, recurrent. Patient with multiple episodes of sepsis. Initial episode due to presumed aspiration pneumonia and septic episode on 09/23 from candidemia then a third episode from peritonitis from gastric perforation from dislodged PEG , there was an abscess in the abdomen present at that time that was draining pus. +/-UTI. The latest episode was related to surgical site infection. Continue antibiotics per ID. Surgical wound infection/gram-negative sepsis/candidemia/peritonitis PEG has been removed Has already completed 14 days of abx and antifungals, ID input appreciated She will need to be on tube feeds through NG tube for a month, and then either a gastrostomy or jejunostomy tube replaced after her GI wounds have healed and infection is cleared -continue wound care to ostomy sites JUANITA, now ESRD Likely due to vasomotor nephropathy and ATN given sepsis Nephrology input appreciated, continue hemodialysis Creatinine 2.0 today Acute CVA with infarct. sp TPA Continue neuro checks. Neurology input appreciated, CT shows continued evolution of left MCA infarct with slight mass effect and edema, and there is no hemorrhage - PRINCE showed hyperdynamic with ef of 75%, neither clot nor septal defect seen - MRA Brain shows near complete occlusion of M2 and M3 of the left MCA - Repeat CT scan done on 09/11, shows stable findings - carotid doppler negative - Echo shows preserved systolic function but does show some left ventricular diastolic dysfunction - continue asa and statin for secondary ppx Paroxysmal atrial fibrillation. On Metoprolol Persistent vegetative state This patient's needs placement at either hospice or SNF -She was denied for LTACH Acute hypoxic respiratory failure requiring MV >96hrs Status post tracheostomy, continue to wean off vent, has been tolerating T piece Nosocomial acquired aspiration pneumonia/sepsis/UTI She had completed a course of antibiotics. Now on Cefepime and Vanco for fever Asthma/COPD exacerbation Now has trach Acute Toxic Metabolic encephalopathy. Multitifactorial, mostly secondary to evolution of CVA Hypertensive Emergency Continue current medications. Now on Metoprolol, Cozaar, Clonidine patch. BP uncontrolled. May increase dose of Cozaar Paroxysmal atrial fibrillation with rapid ventricular rate, failed cardioversion Continue current medications, Not a candidate for anticoagulation secondary to anemia thrombocytopenia and massive CVA Hypokalemia/Hypomagnesemia/hypophosphatemia. Replete electrolytes as needed. Diabetes type 2. Continue sliding-scale regular insulin and Accu-Cheks. Hyperlipidemia. Continue statin Nutrition continue tube feeds Anemia requiring multiple transfusions/acute blood loss Has received total 13 units of PRBC this admission. Will continue to transfuse to keep Hemoglobin above 7 Hemoglobin 8.9 today Case discussed with JAVIER Phelan. Her POA is her Brother, Jam [phone] Dispo. Very poor prognosis. Plan is for SNIF placement, she was ready denied by LTAC History Interval history: Patient has prolonged stay Fever subsiding, last fever 2 days ago Hospitalist Physical - Physical exam Narrative exam: Gen appearance: Trach, not in acute distress HEENT: Atraumatic Neck: Tracheostomy Lungs: Coarse breath sounds, no crackles or wheezes Heart :S1 and S2 irregular, no murmurs, rubs or gallop Abdomen: Soft, non tender, ostomy bags Extremities : bilateral edema, upper and lower ext Neuro: Minimal responsive, opens eyes, Does not follow commands - Constitutional Vitals: Temp Pulse Resp BP Pulse Ox 98.8 F 111 H 21 168/91 100 11/12/16 00:00 11/12/16 08:00 11/12/16 08:00 11/12/16 08:00 11/12/16 08:00 General appearance: Present: no acute distress, obese, other (on vent, non- responsive) Results - Labs CBC & Chem 7: 11/12/16 04:00 11/12/16 04:00 Labs: Laboratory Last Values WBC 9.1 K/mm3 (4.5-11.0) 11/11/16 06:59 RBC 2.81 M/mm3 (3.65-5.03) L 11/11/16 06:59 Hgb 8.9 gm/dl (10.1-14.3) L 11/12/16 04:00 Hct 27.2 % (30.3-42.9) L 11/12/16 04:00 MCV 87 fl (79-97) 11/11/16 06:59 MCH 29 pg (28-32) 11/11/16 06:59 MCHC 33 % (30-34) 11/11/16 06:59 RDW 16.4 % (13.2-15.2) H 11/11/16 06:59 Plt Count 273 K/mm3 (140-440) 11/11/16 06:59 Lymph % (Auto) 22.6 % (13.4-35.0) 11/11/16 06:59 Faulk % (Auto) 10.8 % (0.0-7.3) H 11/11/16 06:59 Eos % (Auto) 0.9 % (0.0-4.3) 11/11/16 06:59 Baso % (Auto) 0.8 % (0.0-1.8) 11/11/16 06:59 Lymph # 2.1 K/mm3 (1.2-5.4) 11/11/16 06:59 Faulk # 1.0 K/mm3 (0.0-0.8) H 11/11/16 06:59 Eos # 0.1 K/mm3 (0.0-0.4) 11/11/16 06:59 Baso # 0.1 K/mm3 (0.0-0.1) 11/11/16 06:59 Add Manual Diff Complete 10/27/16 06:30 Total Counted 100 10/27/16 06:30 Seg Neutrophils % 64.9 % (40.0-70.0) 11/11/16 06:59 Seg Neuts % (Manual) 78.0 % (40.0-70.0) H 10/27/16 06:30 Band Neutrophils % 0 % 10/27/16 06:30 Lymphocytes % (Manual) 14.0 % (13.4-35.0) 10/27/16 06:30 Reactive Lymphs % (Man) 0 % 10/27/16 06:30 Monocytes % (Manual) 7.0 % (0.0-7.3) 10/27/16 06:30 Eosinophils % (Manual) 0 % (0.0-4.3) 10/27/16 06:30 Basophils % (Manual) 1.0 % (0.0-1.8) 10/27/16 06:30 Metamyelocytes % 0 % 10/27/16 06:30 Myelocytes % 0 % 10/27/16 06:30 Promyelocytes % 0 % 10/27/16 06:30 Blast Cells % 0 % 10/27/16 06:30 Nucleated RBC % 2.0 % (0.0-0.9) H 10/27/16 06:30 Seg Neutrophils # 5.9 K/mm3 (1.8-7.7) 11/11/16 06:59 Seg Neutrophils # Man 10.8 K/mm3 (1.8-7.7) H 10/27/16 06:30 Band Neutrophils # 0.0 K/mm3 10/27/16 06:30 Lymphocytes # (Manual) 1.9 K/mm3 (1.2-5.4) 10/27/16 06:30 Abs React Lymphs (Man) 0.0 K/mm3 10/27/16 06:30 Monocytes # (Manual) 1.0 K/mm3 (0.0-0.8) H 10/27/16 06:30 Eosinophils # (Manual) 0.0 K/mm3 (0.0-0.4) 10/27/16 06:30 Basophils # (Manual) 0.1 K/mm3 (0.0-0.1) 10/27/16 06:30 Metamyelocytes # 0.0 K/mm3 10/27/16 06:30 Myelocytes # 0.0 K/mm3 10/27/16 06:30 Promyelocytes # 0.0 K/mm3 10/27/16 06:30 Blast Cells # 0.0 K/mm3 10/27/16 06:30 Pathologist Review 09/13/16 04:00 WBC Morphology Not Reportable 10/27/16 06:30 Hypersegmented Neuts Not Reportable 10/27/16 06:30 Hyposegmented Neuts Not Reportable 10/27/16 06:30 Hypogranular Neuts Not Reportable 10/27/16 06:30 Smudge Cells Not Reportable 10/27/16 06:30 Toxic Granulation Not Reportable 10/27/16 06:30 Toxic Vacuolation Not Reportable 10/27/16 06:30 Dohle Bodies Not Reportable 10/27/16 06:30 Pelger-Huet Anomaly Not Reportable 10/27/16 06:30 Jasmina Rods Not Reportable 10/27/16 06:30 Platelet Estimate Cons 10/27/16 06:30 Clumped Platelets Not Reportable 10/27/16 06:30 Plt Clumps, EDTA Not Reportable 10/27/16 06:30 Large Platelets Few 10/27/16 06:30 Giant Platelets Not Reportable 10/27/16 06:30 Platelet Satelliting Not Reportable 10/27/16 06:30 Plt Morphology Comment Not Reportable 10/27/16 06:30 RBC Morphology Not Reportable 10/27/16 06:30 Dimorphic RBCs Not Reportable 10/27/16 06:30 Polychromasia Not Reportable 10/27/16 06:30 Hypochromasia Not Reportable 10/27/16 06:30 Poikilocytosis Not Reportable 10/27/16 06:30 Anisocytosis 1+ 10/27/16 06:30 Microcytosis Not Reportable 10/27/16 06:30 Macrocytosis Not Reportable 10/27/16 06:30 Spherocytes Not Reportable 10/27/16 06:30 Pappenheimer Bodies Not Reportable 10/27/16 06:30 Sickle Cells Not Reportable 10/27/16 06:30 Target Cells Not Reportable 10/27/16 06:30 Tear Drop Cells Not Reportable 10/27/16 06:30 Ovalocytes Not Reportable 10/27/16 06:30 Stomatocytes Few 10/06/16 03:50 Helmet Cells Not Reportable 10/27/16 06:30 Monet-Norene Bodies Not Reportable 10/27/16 06:30 [place] Rings Not Reportable 10/27/16 06:30 Chuck Cells Not Reportable 10/27/16 06:30 Bite Cells Not Reportable 10/27/16 06:30 Crenated Cell Not Reportable 10/27/16 06:30 Elliptocytes Not Reportable 10/27/16 06:30 Acanthocytes (Spur) Not Reportable 10/27/16 06:30 Rouleaux Not Reportable 10/27/16 06:30 Hemoglobin C Crystals Not Reportable 10/27/16 06:30 Schistocytes Not Reportable 10/27/16 06:30 Malaria parasites Not Reportable 10/27/16 06:30 ESR > 140.0 mm/Hr (0-20) 09/08/16 11:48 Jun Bodies Not Reportable 10/27/16 06:30 Hem Pathologist Commnt No 10/27/16 06:30 PT 14.9 Sec. (12.2-14.9) 11/11/16 09:50 INR 1.18 (0.87-1.13) H 11/11/16 09:50 APTT 33.0 Sec. (24.2-36.6) 10/09/16 03:45 Thrombin Time 16.8 Sec. (15.1-19.6) 09/03/16 00:10 Fibrinogen 750 mg/dl (211-480) H 09/08/16 11:48 Lupus Anticoagulant see below 09/12/16 09:59 LA PTT Baseline See scanned report 09/12/16 09:59 dRVVT Confirm Interp Positive (Negative) H 09/12/16 09:59 dRVVT Screen 50:50 See scanned report 09/12/16 09:59 dRVVT Mix Interpret See scanned report 09/12/16 09:59 Protein C Antigen 122 % (70-140) 09/08/16 15:35 Free Protein S 97 % normal (50-147) 09/08/16 15:35 Total Protein S 109 % (70-140) 09/08/16 15:35 Antithrombin III Ag 100 % (80-120) 09/08/16 15:35 Heparin Anti-Xa, Unfract Negative (Negative) 09/29/16 13:35 Factor V Activity 182 % (65-150) H 09/08/16 15:35 POC ABG pH 7.478 (7.35-7.45) H 11/08/16 23:37 POC ABG pCO2 34.0 (35-45) L 11/08/16 23:37 POC ABG pO2 50 (80-105) L 11/08/16 23:37 POC ABG HCO3 25.2 11/08/16 23:37 POC ABG Total CO2 26 11/08/16 23:37 POC ABG O2 Sat 88 11/08/16 23:37 POC ABG Base Excess 2 11/08/16 23:37 FiO2 28 % 11/08/16 23:37 Sodium 133 mmol/L (137-145) L 11/12/16 04:00 Potassium 3.7 mmol/L (3.6-5.0) 11/12/16 04:00 Chloride 94.8 mmol/L (98-107) L 11/12/16 04:00 Carbon Dioxide 21 mmol/L (22-30) L 11/12/16 04:00 Anion Gap 21 mmol/L 11/12/16 04:00 BUN 42 mg/dL (7-17) H 11/12/16 04:00 Creatinine 2.0 mg/dL (0.7-1.2) H 11/12/16 04:00 Estimated GFR 33 ml/min 11/12/16 04:00 BUN/Creatinine Ratio 21.00 % 11/12/16 04:00 Glucose 86 mg/dL (65-100) 11/12/16 04:00 POC Glucose 71 (70-105) 11/12/16 04:22 Osmolality 351 Mosm/kg 09/16/16 11:47 Lactic Acid 4.50 mmol/L (0.7-2.0) H* 09/28/16 07:25 Calcium 8.4 mg/dL (8.4-10.2) 11/12/16 04:00 Phosphorus 4.40 mg/dL (2.5-4.5) 11/07/16 06:30 Magnesium 2.20 mg/dL (1.7-2.3) 11/07/16 06:30 Total Bilirubin 0.20 mg/dL (0.1-1.2) 11/06/16 06:25 Direct Bilirubin 0.3 mg/dL (0-0.2) H 10/10/16 05:00 Indirect Bilirubin 0.1 mg/dL 10/10/16 05:00 AST 103 units/L (5-40) H 11/06/16 06:25 ALT 77 units/L (7-56) H 11/06/16 06:25 Alkaline Phosphatase 285 units/L (35-129) H 11/06/16 06:25 Ammonia 27.0 umol/L (25-60) 09/07/16 08:37 Lactate Dehydrogenase 196 units/L (91-180) H 11/11/16 06:59 Total Creatine Kinase 121 units/L (30-135) 09/29/16 20:12 CK-MB (CK-2) < 1.0 ng/mL (0.0-4.0) 09/29/16 20:12 CK-MB (CK-2) Rel Index 0.8 (0-4) 09/29/16 20:12 Troponin T 0.204 ng/mL (0.00-0.029) H* 09/29/16 20:12 C-Reactive Protein 11.40 mg/dL (0.00-1.30) H 11/05/16 13:25 Total Protein 6.1 g/dL (6.3-8.2) L 11/11/16 06:59 Albumin 1.8 g/dL (3.9-5) L 11/06/16 06:25 Albumin/Globulin Ratio 0.4 % 11/06/16 06:25 Prealbumin 0.180 g/L (0.200-0.400) L 11/06/16 06:25 Triglycerides 137 mg/dL (2-149) 09/29/16 20:12 Cholesterol 31 mg/dL (50-199) L 09/29/16 20:12 LDL Cholesterol Direct 4 mg/dL (50-130) L 09/29/16 20:12 HDL Cholesterol 3 mg/dL (40-59) L 09/29/16 20:12 Cholesterol/HDL Ratio 10.33 % 09/29/16 20:12 Angiotensin Convert Enz See scanned report 09/08/16 11:48 Renin 0.99 ng/mL/h (0.25-5.82) 10/07/16 10:56 Aldosterone <1 ng/dL () 10/07/16 10:56 Aldosterone/Renin Dir see below 10/07/16 10:56 Serotonin Release Assay See scanned report 09/29/16 13:35 TSH 1.010 mlU/mL (0.270-4.200) 09/07/16 08:37 HCG, Qual Negative (Negative) 09/03/16 00:10 Urine Color Yellow (Yellow) 11/05/16 13:09 Urine Turbidity Clear (Clear) 11/05/16 13:09 Urine pH 9.0 (5.0-7.0) H 11/05/16 13:09 Ur Specific [place] 1.011 (1.003-1.030) 11/05/16 13:09 Urine Protein 100 mg/dl mg/dL (Negative) 11/05/16 13:09 Urine Glucose (UA) Neg mg/dL (Negative) 11/05/16 13:09 Urine Ketones Neg mg/dL (Negative) 11/05/16 13:09 Urine Blood Neg (Negative) 11/05/16 13:09 Urine Nitrite Neg (Negative) 11/05/16 13:09 Urine Bilirubin Neg (Negative) 11/05/16 13:09 Urine Urobilinogen < 2.0 mg/dL (<2.0) 11/05/16 13:09 Ur Leukocyte Esterase Neg (Negative) 11/05/16 13:09 Urine WBC (Auto) 4.0 /HPF (0.0-6.0) 11/05/16 13:09 Urine RBC (Auto) 1.0 /HPF (0.0-6.0) 11/05/16 13:09 U Epithel Cells (Auto) 1.0 /HPF (0-13.0) 10/07/16 18:30 Urine Bacteria (Auto) 4+ /HPF (Negative) 11/05/16 13:09 Urine WBC Clumps 2+ /HPF 09/07/16 02:47 Hyaline Casts 4 /LPF 09/07/16 02:47 Urine Mucus Few /HPF 10/07/16 18:30 Urine Yeast (Budding) 3+ /HPF 10/07/16 18:30 Urine Eosinophils None seen (None Seen) 09/07/16 16:00 Urine Total Volume TNR 10/29/16 07:45 Urine Creatinine TNR 10/29/16 07:45 Height (in) TNR 10/29/16 07:45 Weight (lb) TNR 10/29/16 07:45 Creatinine Clearance TNR 10/29/16 07:45 Urine Sodium 36 mEq/L 09/16/16 19:19 Urine Total Protein 16 mg/dL (5-11.8) H 09/16/16 19:19 Vancomycin Trough 2.3 ug/mL (5.0-20.0) L 09/21/16 13:00 Random Vancomycin 24.7 ug/mL (0-40.0) 11/12/16 04:00 Urine Opiates Screen Presumptive negative 09/03/16 15:11 Urine Methadone Screen Presumptive positive 09/03/16 15:11 Ur Barbiturates Screen Presumptive positive 09/03/16 15:11 Ur Phencyclidine Scrn Presumptive negative 09/03/16 15:11 Ur Amphetamines Screen Presumptive negative 09/03/16 15:11 U Benzodiazepines Scrn Presumptive negative 09/03/16 15:11 Urine Cocaine Screen Presumptive negative 09/03/16 15:11 U Marijuana (THC) Screen Presumptive positive 09/03/16 15:11 Drugs of Abuse Note Disclamer 09/03/16 15:11 Rheumatoid Factor 24 IU/ml (0-13) H 09/08/16 11:48 SAHIL Screen Negative (Negative) 09/07/16 09:20 Proteinase 3 (PR3) Ab <1.0 AI (<1.0) 09/07/16 09:20 Myeloperoxidase Ab <1.0 AI (<1.0) 09/07/16 09:20 Sjogren's Antibody <1.0 AI (<1.0) 09/08/16 15:35 Scl-70 Scleroderma Ab <1.0 AI (<1.0) 09/08/16 15:35 Centromere B Antibody <1.0 AI (<1.0) 09/08/16 12:02 Heparin-induced Plt Ab Negative (Negative) 09/29/16 13:35 UF Heparin High Dose 11 % Release 09/29/16 13:35 SUDHIR UFH Low Dose 0.1 6 % Release 09/29/16 13:35 SUDHIR UFH Low Dose 0.5 8 % Release 09/29/16 13:35 Cardiolipid IgG Ab <14 GPL (<=14) 09/12/16 09:59 Cardiolipid IgA Ab <11 APL (<=11) 09/12/16 09:59 Cardiolipid IgM Ab <12 MPL (<=12) 09/12/16 09:59 Complement C3 148 mg/dL (90-180) 09/07/16 09:20 Complement C4 58 mg/dL (16-47) H 09/07/16 09:20 RPR Nonreactive (Nonreactive) 09/08/16 11:48 Hepatitis A IgM Ab Non-reactive (NonReactive) 09/24/16 14:40 Hep Bs Antigen Non-reactive (Negative) 09/24/16 14:40 Hep B Core IgM Ab Non-reactive (NonReactive) 09/24/16 14:40 Hepatitis C Antibody Non-reactive (NonReactive) 09/24/16 14:40 HIV 1&2 Antibody Rapid Non react (Non React) 09/08/16 11:48 HIV P24 Antigen Non react (Non React) 09/08/16 11:48 Miscellaneous Test Flexitest 1 H 11/05/16 13:25 Blood Type A POSITIVE 11/07/16 09:37 Antibody Screen Negative 11/07/16 09:37 DELORIS Antibody Screen Negative 09/25/16 10:30 Crossmatch See Detail 11/07/16 09:37
[2016-11-12] MEDS: COZAAR PO SCH (09:17)
[2016-11-12] MEDS: QUESTRAN PO SCH (09:18)
[2016-11-12] MEDS: PROTONIX FEEDTUBE SCH (09:18)
--- NOTE | 2016-11-12 10:20 | Progress Note ---
Assessment and Plan Assessment * Oliguric acute kidney injury secondary to ATN on CKD - baseline SCr 1.7mg/dL --24H urine CrCl 15ml/min on Sep 21 * Sepsis * s/p Candidemia * s/p GI bleed * Acute CVA - left MCA with midline shift * Acute hypoxic respiratory failure * Left renal artery stenosis * Metabolic acidosis - improved * Anemia * Hyponatremia - multifactorial Plan: * Continue to hold hemodialysis - UOP appx 1 liter over 24hours * Will give Lasix/Albumin today * Start 24h urine CrCl * Note plans for thoracentesis * Rate control per cardiology * Abx/antifungal per ID * Vent management per critical care * Dose medications for renal function * Avoid potential nephrotoxins * Pressors prn MAP>65 Subjective Date of service: 11/12/16 Principal diagnosis: Acute resp failure on MVS; S/P Acute CVA; Acute Encephalopathy; JUANITA Interval history: No acute events overnight. Objective - Vital Signs Vital signs: Vital Signs - 12hr 11/11/16 11/11/16 11/11/16 22:30 23:00 23:30 Temperature Pulse Rate 107 H 108 H 105 H Respiratory 43 H 42 H 38 H Rate Blood Pressure 153/87 167/93 147/81 O2 Sat by Pulse 96 98 96 Oximetry 11/12/16 11/12/16 11/12/16 00:00 00:30 00:31 Temperature 98.8 F Pulse Rate 106 H 113 H Respiratory 34 H 38 H 41 H Rate Blood Pressure 147/77 169/96 O2 Sat by Pulse 96 96 98 Oximetry 11/12/16 11/12/16 11/12/16 01:00 01:31 02:00 Temperature Pulse Rate 109 H 112 H 109 H Respiratory 17 20 19 Rate Blood Pressure 127/63 155/91 140/72 O2 Sat by Pulse 95 96 97 Oximetry 11/12/16 11/12/16 11/12/16 02:31 03:00 03:31 Temperature Pulse Rate 90 114 H 120 H Respiratory 16 23 21 Rate Blood Pressure 140/72 146/82 146/82 O2 Sat by Pulse 97 97 99 Oximetry 11/12/16 11/12/16 11/12/16 04:00 04:01 04:31 Temperature Pulse Rate 99 H 114 H 108 H Respiratory 23 19 Rate Blood Pressure 168/96 146/82 195/102 O2 Sat by Pulse 97 Oximetry 11/12/16 11/12/16 11/12/16 05:00 05:31 06:00 Temperature Pulse Rate 109 H 108 H 108 H Respiratory 21 20 21 Rate Blood Pressure 167/93 167/93 168/96 O2 Sat by Pulse Oximetry 11/12/16 11/12/16 11/12/16 06:31 07:00 07:31 Temperature Pulse Rate 111 H 109 H 108 H Respiratory 21 21 18 Rate Blood Pressure 168/96 168/91 168/91 O2 Sat by Pulse Oximetry 11/12/16 11/12/16 11/12/16 08:00 08:31 09:01 Temperature 99.3 F Pulse Rate 111 H 108 H 111 H Respiratory 21 16 19 Rate Blood Pressure 168/91 171/93 146/81 O2 Sat by Pulse 100 96 99 Oximetry 11/12/16 11/12/16 09:17 09:31 Temperature Pulse Rate 118 H 121 H Respiratory 25 H Rate Blood Pressure 146/81 146/81 O2 Sat by Pulse 99 Oximetry - General Appearance General appearance: intubated EENT: ATNC Neck: other (Trach) Respiratory: Present: Other (Coarse bilateral breath sounds) Cardiology: regular, tachycardia Gastrointestinal: hypoactive bowel sounds Integumentary: no rash Musculoskeletal: other (1+ pitting edema) - Lab 11/12/16 04:00 11/12/16 04:00 Most recent lab results Calcium 8.4 mg/dL (8.4-10.2) 11/12/16 04:00 Phosphorus 4.40 mg/dL (2.5-4.5) 11/07/16 06:30 Magnesium 2.20 mg/dL (1.7-2.3) 11/07/16 06:30 Urine Creatinine TNR 10/29/16 07:45 Urine Sodium 36 mEq/L 09/16/16 19:19 Urine Total Protein 16 mg/dL (5-11.8) H 09/16/16 19:19
[2016-11-12] MEDS: MAXIPIME/NS 2 GM/100 ML 2 GM/100 ML BAG IV SCH (11:11)
[2016-11-12] MEDS: LOPRESSOR PO SCH ×3 (11:23→17:24)
[2016-11-12] MEDS: APRESOLINE IV PRN ×3 (11:24→21:57)
[2016-11-12] MEDS ORDERED: ALBURX 25% (ALBUMIN) IV ONE (12:15)
[2016-11-12] MEDS ORDERED: LASIX IV ONE (12:15)
--- NOTE | 2016-11-12 12:38 | Progress Note ---
Assessment and Plan - Patient Problems (1) Acute respiratory failure with hypoxia Current Visit: Yes Status: Acute (2) Dislodged gastrostomy tube Current Visit: Yes Status: Acute Plan to address problem: continue local wound care await resolution of drainage then consider replacement of G tube continue tube feeds via NGT Subjective Date of service: 11/12/16 Patient Reports: Positive: no new complaints Objective Vital Signs - 12hr 11/12/16 11/12/16 11/12/16 01:00 01:31 02:00 Temperature Pulse Rate 109 H 112 H 109 H Respiratory 17 20 19 Rate Blood Pressure 127/63 155/91 140/72 O2 Sat by Pulse 95 96 97 Oximetry O2 Sat by Pulse Oximetry [ Assessment] 11/12/16 11/12/16 11/12/16 02:31 03:00 03:31 Temperature Pulse Rate 90 114 H 120 H Respiratory 16 23 21 Rate Blood Pressure 140/72 146/82 146/82 O2 Sat by Pulse 97 97 99 Oximetry O2 Sat by Pulse Oximetry [ Assessment] 11/12/16 11/12/16 11/12/16 04:00 04:01 04:31 Temperature Pulse Rate 99 H 114 H 108 H Respiratory 23 19 Rate Blood Pressure 168/96 146/82 195/102 O2 Sat by Pulse 97 Oximetry O2 Sat by Pulse Oximetry [ Assessment] 11/12/16 11/12/16 11/12/16 05:00 05:31 06:00 Temperature Pulse Rate 109 H 108 H 108 H Respiratory 21 20 21 Rate Blood Pressure 167/93 167/93 168/96 O2 Sat by Pulse Oximetry O2 Sat by Pulse Oximetry [ Assessment] 11/12/16 11/12/16 11/12/16 06:31 07:00 07:31 Temperature Pulse Rate 111 H 109 H 108 H Respiratory 21 21 18 Rate Blood Pressure 168/96 168/91 168/91 O2 Sat by Pulse Oximetry O2 Sat by Pulse Oximetry [ Assessment] 11/12/16 11/12/16 11/12/16 08:00 08:31 09:01 Temperature 99.3 F Pulse Rate 111 H 108 H 111 H Respiratory 21 16 19 Rate Blood Pressure 168/91 171/93 146/81 O2 Sat by Pulse 100 96 99 Oximetry O2 Sat by Pulse Oximetry [ Assessment] 11/12/16 11/12/16 11/12/16 09:17 09:31 10:00 Temperature Pulse Rate 118 H 121 H 104 H Respiratory 25 H 18 Rate Blood Pressure 146/81 146/81 154/88 O2 Sat by Pulse 99 99 Oximetry O2 Sat by Pulse Oximetry [ Assessment] 11/12/16 11/12/16 11/12/16 10:20 10:30 10:31 Temperature Pulse Rate 113 H 120 H Respiratory 39 H Rate Blood Pressure 154/88 192/97 O2 Sat by Pulse 98 99 Oximetry O2 Sat by Pulse 99 Oximetry [ Assessment] 11/12/16 11/12/16 11/12/16 10:35 11:00 11:23 Temperature Pulse Rate 120 H 121 H Respiratory 40 H Rate Blood Pressure 192/102 192/102 O2 Sat by Pulse 99 98 Oximetry O2 Sat by Pulse Oximetry [ Assessment] 11/12/16 11/12/16 11/12/16 11:24 11:31 12:00 Temperature Pulse Rate 124 H 103 H Respiratory 44 H 42 H Rate Blood Pressure 192/102 192/102 168/89 O2 Sat by Pulse 96 99 Oximetry O2 Sat by Pulse Oximetry [ Assessment] - General physical appearance no distress - Abdomen soft, not tender, not distended, other (right abdominal port sites with minimal ongoing drainage; G tube site with ongoing drainage) - Labs 11/12/16 04:00 11/12/16 04:00 Diabetes panel 11/12/16 Range/Units 04:00 Sodium 133 L (137-145) mmol/L Potassium 3.7 (3.6-5.0) mmol/L Chloride 94.8 L (98-107) mmol/L Carbon Dioxide 21 L (22-30) mmol/L BUN 42 H (7-17) mg/dL Creatinine 2.0 H (0.7-1.2) mg/dL Glucose 86 (65-100) mg/dL Calcium 8.4 (8.4-10.2) mg/dL Calcium panel 11/12/16 Range/Units 04:00 Calcium 8.4 (8.4-10.2) mg/dL Pituitary panel 11/12/16 Range/Units 04:00 Sodium 133 L (137-145) mmol/L Potassium 3.7 (3.6-5.0) mmol/L Chloride 94.8 L (98-107) mmol/L Carbon Dioxide 21 L (22-30) mmol/L BUN 42 H (7-17) mg/dL Creatinine 2.0 H (0.7-1.2) mg/dL Glucose 86 (65-100) mg/dL Calcium 8.4 (8.4-10.2) mg/dL Adrenal panel 11/12/16 Range/Units 04:00 Sodium 133 L (137-145) mmol/L Potassium 3.7 (3.6-5.0) mmol/L Chloride 94.8 L (98-107) mmol/L Carbon Dioxide 21 L (22-30) mmol/L BUN 42 H (7-17) mg/dL Creatinine 2.0 H (0.7-1.2) mg/dL Glucose 86 (65-100) mg/dL Calcium 8.4 (8.4-10.2) mg/dL
--- NOTE | 2016-11-12 15:33 | Progress Note ---
Assessment and Plan (1) Acute respiratory failure with hypoxia Current Visit: Yes Status: Acute Plan to address problem: - continue aspiration precautions - continue to wean oxygen for MAP > 94% - continue bronchodilators and pulmonary toilet - s/p tracheostomy - continue scopolamine - ABG's prn at this point for increased work of breathing or other resp distress - will send for right thoracentesis re: moderate effusion with the hope that it aids RTC t-piece tolerance - follow thoracentesis studies - continue t-piece trials and shoot for RTC if tolerates especially post thoracentesis (2) Acute CVA (cerebrovascular accident) Current Visit: Yes Status: Acute Plan to address problem: - Left MCA teritory stroke - seen by neurology and prognosis for recovery of mental status guarded to poor - optimizing secondary prevention modalities now (BP, lipid anti-platelet therapy) - off systemic steroids now (started earlier for edema) - clinically mild improvement (3) Hypertensive emergency Current Visit: Yes Status: Acute Plan to address problem: - continue antihypertensives (on metoprolol, clonidine and cozaar) - use prn hydralazine - resume sedation while on MVS (4) Obesity (BMI 35.0-39.9 without comorbidity) Current Visit: Yes Status: Chronic Plan to address problem: - now at goal rate on tube feeding - stopped TPN (5) Type 2 diabetes mellitus Current Visit: Yes Status: Chronic Qualifiers: Diabetes mellitus complication status: D Diabetes mellitus complication detail: D Diabetic retinopathy severity: D Proliferative retinopathy type: P Diabetes mellitus macular edema: D Diabetes mellitus mcfp insulin use : D Laterality: L Chronic kidney disease stage: C Plan to address problem: - continue SSI - discontinued lantus prior re: hypoglycemia - target BG's <180 mg/dl (6) Leukocytosis (leucocytosis) Current Visit: Yes Status: Acute Qualifiers: Leukocytosis type: leukemoid reaction Qualified Code(s): D72.823 - Leukemoid reaction Plan to address problem: - improving - see sepsis section below (7) Agitation Current Visit: Yes Status: Acute Plan to address problem: - prn sedation / analgesia - tapered off seroquel for now (8) Atrial fibrillation Current Visit: Yes Status: Acute Qualifiers: Atrial fibrillation type: A Plan to address problem: - off amiodarone - continue p.o. metoprolol scheduled at 50mg q6h and adjust as necessary (9) JUANITA (acute kidney injury) Current Visit: Yes Status: Acute Plan to address problem: - on Dialysis now - continue HD/UF per nephrology recommendations - s/p tunnelled vas-cath - HD/UF - (10) Pyrexia of unknown origin Current Visit: Yes Status: Acute Plan to address problem: - dopplers negative for DVT - continue to treat with Anti-infectives (11) Severe sepsis Current Visit: Yes Status: Acute Plan to address problem: - resume vasopressors for MAP < 60mmHg not responsive to volume - continue anti-infectives per ID recs - VRE in urine noted; ? colonizer at this point - continue contact precautions - PSAR noted on trach aspirate from 11/07/16 (? Colonizer) - catheter tip however with >15CFU GNR growing now and may well be same organism (await ID- if that's the case however she is on appropriate AB's therapy) (12) Emesis Current Visit: Yes Status: Acute Qualifiers: Vomiting type: V Vomiting Intractability: V Nausea presence: N Plan to address problem: - s/p surgical repair of gastric perforation - continue TPN for now - follow surgery recommendations re: feeding and new PEG tube - now tolerating tube feeds at goal rate (13) Dysphagia, oropharyngeal Current Visit: Yes Status: Acute Plan to address problem: - discussed with surgeon and she will be best served with continued treatment with anti-infectives as well as time for the GI tract and her wounds to heal before replacing the PEG tube - continue DHT feeding (14) Discharge planning issues Current Visit: Yes Status: Acute Plan to address problem: - she remains critically ill on life sustaining interventions including MVS and at risk for further acute deterioration including - if can stay off MVS then can transfer to medical floor shortly .....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 Subjective Date of service: 11/12/16 Principal diagnosis: Acute resp failure on MVS; S/P Acute CVA; Acute Encephalopathy; JUANITA Interval history: Seen and examined at bedside; 24 hour events reviewed; nursing and respiratory care staff consulted; no adverse overnight events reported to me; unable to get consent for thoracentesis yesterday and so far today; rested on MVS overnight after developed distress; AMS is persistent; no new issues otherwise Objective Vital Signs - 12hr 11/12/16 11/12/16 11/12/16 04:00 04:01 04:31 Temperature Pulse Rate 99 H 114 H 108 H Respiratory 23 19 Rate Blood Pressure 168/96 146/82 195/102 O2 Sat by Pulse 97 Oximetry O2 Sat by Pulse Oximetry [ Assessment] 11/12/16 11/12/16 11/12/16 05:00 05:31 06:00 Temperature Pulse Rate 109 H 108 H 108 H Respiratory 21 20 21 Rate Blood Pressure 167/93 167/93 168/96 O2 Sat by Pulse Oximetry O2 Sat by Pulse Oximetry [ Assessment] 11/12/16 11/12/16 11/12/16 06:31 07:00 07:31 Temperature Pulse Rate 111 H 109 H 108 H Respiratory 21 21 18 Rate Blood Pressure 168/96 168/91 168/91 O2 Sat by Pulse Oximetry O2 Sat by Pulse Oximetry [ Assessment] 11/12/16 11/12/16 11/12/16 08:00 08:31 09:01 Temperature 99.3 F Pulse Rate 111 H 108 H 111 H Respiratory 21 16 19 Rate Blood Pressure 168/91 171/93 146/81 O2 Sat by Pulse 100 96 99 Oximetry O2 Sat by Pulse Oximetry [ Assessment] 11/12/16 11/12/16 11/12/16 09:17 09:31 10:00 Temperature Pulse Rate 118 H 121 H 104 H Respiratory 25 H 18 Rate Blood Pressure 146/81 146/81 154/88 O2 Sat by Pulse 99 99 Oximetry O2 Sat by Pulse Oximetry [ Assessment] 11/12/16 11/12/16 11/12/16 10:20 10:30 10:31 Temperature Pulse Rate 113 H 120 H Respiratory 39 H Rate Blood Pressure 154/88 192/97 O2 Sat by Pulse 98 99 Oximetry O2 Sat by Pulse 99 Oximetry [ Assessment] 11/12/16 11/12/16 11/12/16 10:35 11:00 11:23 Temperature Pulse Rate 120 H 121 H Respiratory 40 H Rate Blood Pressure 192/102 192/102 O2 Sat by Pulse 99 98 Oximetry O2 Sat by Pulse Oximetry [ Assessment] 11/12/16 11/12/16 11/12/16 11:24 11:31 12:00 Temperature Pulse Rate 124 H 103 H Respiratory 44 H 42 H Rate Blood Pressure 192/102 192/102 168/89 O2 Sat by Pulse 96 99 Oximetry O2 Sat by Pulse Oximetry [ Assessment] 11/12/16 11/12/16 11/12/16 12:31 13:00 13:31 Temperature Pulse Rate 101 H 106 H 106 H Respiratory 40 H 42 H 37 H Rate Blood Pressure 168/89 153/93 153/93 O2 Sat by Pulse Oximetry O2 Sat by Pulse Oximetry [ Assessment] 11/12/16 14:00 Temperature Pulse Rate 117 H Respiratory 44 H Rate Blood Pressure 167/95 O2 Sat by Pulse Oximetry O2 Sat by Pulse Oximetry [ Assessment] Constitutional: no acute distress, other (eyes open; tracking movements) Eyes: non-icteric, other (tracheostomy tube in midline of neck) ENT: oropharynx moist Neck: supple, no lymphadenopathy Effort: mildly labored Ascultation: Bilateral: diminished breath sounds (bases), rhonchi Cardiovascular: regular rate and rhythm Gastrointestinal: hypoactive bowel sounds, soft, non-tender, non-distended, other (RLQ stomas with colostomy bags) Integumentary: other (healing back burn-like injury) Extremities: no cyanosis, no edema, pulses normal, no ischemia or petechiae Neurologic: pupils equal and round, other (sedated) Psychiatric: other (unable to assess) CBC and BMP: 11/12/16 04:00 11/12/16 04:00 ABG, PT/INR, D-dimer: ABG POC ABG pH 7.478 (7.35-7.45) H 11/08/16 23:37 POC ABG pCO2 34.0 (35-45) L 11/08/16 23:37 POC ABG pO2 50 (80-105) L 11/08/16 23:37 POC ABG HCO3 25.2 11/08/16 23:37 POC ABG Total CO2 26 11/08/16 23:37 POC ABG O2 Sat 88 11/08/16 23:37 PT/INR, D-dimer PT 14.9 Sec. (12.2-14.9) 11/11/16 09:50 INR 1.18 (0.87-1.13) H 11/11/16 09:50 Abnormal lab findings: Abnormal Labs 09/03/16 09/03/16 09/03/16 12:12 15:07 16:20 WBC RBC Hgb Hct MCV MCH MCHC RDW Plt Count Lymph % (Auto) [place] % (Auto) Lymph # [place] # Baso # Seg Neutrophils % Seg Neuts % (Manual) Lymphocytes % (Manual) Monocytes % (Manual) Eosinophils % (Manual) Basophils % (Manual) Nucleated RBC % Seg Neutrophils # Seg Neutrophils # Man Lymphocytes # (Manual) Monocytes # (Manual) Eosinophils # (Manual) PT INR Fibrinogen dRVVT Confirm Interp Factor V Activity POC ABG pH 7.452 H POC ABG pCO2 POC ABG pO2 Sodium Potassium Chloride Carbon Dioxide BUN Creatinine Glucose POC Glucose 178 H Lactic Acid Calcium Phosphorus 2.20 L Magnesium 1.60 L Direct Bilirubin AST ALT Alkaline Phosphatase Lactate Dehydrogenase Troponin T C-Reactive Protein Total Protein Albumin Prealbumin Triglycerides Cholesterol LDL Cholesterol Direct HDL Cholesterol Urine pH Urine WBC (Auto) Urine Creatinine Urine Total Protein Vancomycin Trough Rheumatoid Factor Complement C4 Miscellaneous Test Crossmatch 09/03/16 09/03/16 09/03/16 17:57 17:58 23:50 WBC RBC Hgb Hct MCV MCH MCHC RDW Plt Count Lymph % (Auto) [place] % (Auto) Lymph # [place] # Baso # Seg Neutrophils % Seg Neuts % (Manual) Lymphocytes % (Manual) Monocytes % (Manual) Eosinophils % (Manual) Basophils % (Manual) Nucleated RBC % Seg Neutrophils # Seg Neutrophils # Man Lymphocytes # (Manual) Monocytes # (Manual) Eosinophils # (Manual) PT INR Fibrinogen dRVVT Confirm Interp Factor V Activity POC ABG pH POC ABG pCO2 POC ABG pO2 Sodium Potassium Chloride Carbon Dioxide BUN Creatinine Glucose POC Glucose 162 H 145 H Lactic Acid Calcium Phosphorus 2.30 L Magnesium Direct Bilirubin AST ALT Alkaline Phosphatase Lactate Dehydrogenase Troponin T C-Reactive Protein Total Protein Albumin Prealbumin Triglycerides Cholesterol LDL Cholesterol Direct HDL Cholesterol Urine pH Urine WBC (Auto) Urine Creatinine Urine Total Protein Vancomycin Trough Rheumatoid Factor Complement C4 Miscellaneous Test Crossmatch 09/04/16 09/04/16 09/04/16 03:31 03:31 05:42 WBC RBC Hgb 9.7 L D Hct MCV 72 L MCH 23 L MCHC RDW 17.5 H Plt Count Lymph % (Auto) 11.1 L [place] % (Auto) Lymph # [place] # Baso # Seg Neutrophils % 84.3 H Seg Neuts % (Manual) Lymphocytes % (Manual) Monocytes % (Manual) Eosinophils % (Manual) Basophils % (Manual) Nucleated RBC % Seg Neutrophils # 8.9 H Seg Neutrophils # Man Lymphocytes # (Manual) Monocytes # (Manual) Eosinophils # (Manual) PT INR Fibrinogen dRVVT Confirm Interp Factor V Activity POC ABG pH POC ABG pCO2 POC ABG pO2 Sodium 135 L Potassium 2.9 L* Chloride 97.2 L Carbon Dioxide 19 L BUN Creatinine 1.7 H Glucose 170 H POC Glucose 152 H Lactic Acid Calcium Phosphorus Magnesium Direct Bilirubin AST ALT Alkaline Phosphatase Lactate Dehydrogenase Troponin T C-Reactive Protein Total Protein Albumin Prealbumin Triglycerides 160 H Cholesterol LDL Cholesterol Direct HDL Cholesterol 31 L Urine pH Urine WBC (Auto) Urine Creatinine Urine Total Protein Vancomycin Trough Rheumatoid Factor Complement C4 Miscellaneous Test Crossmatch 09/04/16 09/04/16 09/04/16 11:34 17:46 23:29 WBC RBC Hgb Hct MCV MCH MCHC RDW Plt Count Lymph % (Auto) [place] % (Auto) Lymph # [place] # Baso # Seg Neutrophils % Seg Neuts % (Manual) Lymphocytes % (Manual) Monocytes % (Manual) Eosinophils % (Manual) Basophils % (Manual) Nucleated RBC % Seg Neutrophils # Seg Neutrophils # Man Lymphocytes # (Manual) Monocytes # (Manual) Eosinophils # (Manual) PT INR Fibrinogen dRVVT Confirm Interp Factor V Activity POC ABG pH POC ABG pCO2 POC ABG pO2 Sodium Potassium Chloride Carbon Dioxide BUN Creatinine Glucose POC Glucose 165 H 210 H 139 H Lactic Acid Calcium Phosphorus Magnesium Direct Bilirubin AST ALT Alkaline Phosphatase Lactate Dehydrogenase Troponin T C-Reactive Protein Total Protein Albumin Prealbumin Triglycerides Cholesterol LDL Cholesterol Direct HDL Cholesterol Urine pH Urine WBC (Auto) Urine Creatinine Urine Total Protein Vancomycin Trough Rheumatoid Factor Complement C4 Miscellaneous Test Crossmatch 09/05/16 09/05/16 09/05/16 04:05 04:05 05:38 WBC RBC Hgb Hct MCV 76 L D MCH 23 L MCHC RDW 17.8 H Plt Count Lymph % (Auto) [place] % (Auto) Lymph # [place] # Baso # Seg Neutrophils % Seg Neuts % (Manual) Lymphocytes % (Manual) Monocytes % (Manual) Eosinophils % (Manual) Basophils % (Manual) Nucleated RBC % Seg Neutrophils # Seg Neutrophils # Man Lymphocytes # (Manual) Monocytes # (Manual) Eosinophils # (Manual) PT INR Fibrinogen dRVVT Confirm Interp Factor V Activity POC ABG pH POC ABG pCO2 POC ABG pO2 Sodium 134 L Potassium Chloride Carbon Dioxide 18 L BUN Creatinine 1.8 H Glucose 192 H POC Glucose 175 H Lactic Acid Calcium Phosphorus Magnesium Direct Bilirubin AST ALT Alkaline Phosphatase Lactate Dehydrogenase Troponin T C-Reactive Protein Total Protein Albumin Prealbumin Triglycerides Cholesterol LDL Cholesterol Direct HDL Cholesterol Urine pH Urine WBC (Auto) Urine Creatinine Urine Total Protein Vancomycin Trough Rheumatoid Factor Complement C4 Miscellaneous Test Crossmatch 09/05/16 09/05/16 09/05/16 11:38 17:48 23:22 WBC RBC Hgb Hct MCV MCH MCHC RDW Plt Count Lymph % (Auto) [place] % (Auto) Lymph # [place] # Baso # Seg Neutrophils % Seg Neuts % (Manual) Lymphocytes % (Manual) Monocytes % (Manual) Eosinophils % (Manual) Basophils % (Manual) Nucleated RBC % Seg Neutrophils # Seg Neutrophils # Man Lymphocytes # (Manual) Monocytes # (Manual) Eosinophils # (Manual) PT INR Fibrinogen dRVVT Confirm Interp Factor V Activity POC ABG pH POC ABG pCO2 POC ABG pO2 Sodium Potassium Chloride Carbon Dioxide BUN Creatinine Glucose POC Glucose 164 H 186 H 195 H Lactic Acid Calcium Phosphorus Magnesium Direct Bilirubin AST ALT Alkaline Phosphatase Lactate Dehydrogenase Troponin T C-Reactive Protein Total Protein Albumin Prealbumin Triglycerides Cholesterol LDL Cholesterol Direct HDL Cholesterol Urine pH Urine WBC (Auto) Urine Creatinine Urine Total Protein Vancomycin Trough Rheumatoid Factor Complement C4 Miscellaneous Test Crossmatch 09/06/16 09/06/16 09/06/16 04:12 05:59 07:32 WBC RBC Hgb Hct MCV MCH MCHC RDW Plt Count Lymph % (Auto) [place] % (Auto) Lymph # [place] # Baso # Seg Neutrophils % Seg Neuts % (Manual) Lymphocytes % (Manual) Monocytes % (Manual) Eosinophils % (Manual) Basophils % (Manual) Nucleated RBC % Seg Neutrophils # Seg Neutrophils # Man Lymphocytes # (Manual) Monocytes # (Manual) Eosinophils # (Manual) PT INR Fibrinogen dRVVT Confirm Interp Factor V Activity POC ABG pH 7.514 H POC ABG pCO2 29.1 L POC ABG pO2 72 L Sodium 133 L Potassium 3.4 L Chloride 94.9 L Carbon Dioxide 19 L BUN 30 H Creatinine 2.1 H Glucose 139 H POC Glucose 146 H Lactic Acid Calcium Phosphorus Magnesium Direct Bilirubin AST ALT Alkaline Phosphatase Lactate Dehydrogenase Troponin T C-Reactive Protein Total Protein Albumin Prealbumin Triglycerides Cholesterol LDL Cholesterol Direct HDL Cholesterol Urine pH Urine WBC (Auto) Urine Creatinine Urine Total Protein Vancomycin Trough Rheumatoid Factor Complement C4 Miscellaneous Test Crossmatch 09/06/16 09/06/16 09/06/16 11:57 17:58 19:02 WBC RBC Hgb Hct MCV MCH MCHC RDW Plt Count Lymph % (Auto) [place] % (Auto) Lymph # [place] # Baso # Seg Neutrophils % Seg Neuts % (Manual) Lymphocytes % (Manual) Monocytes % (Manual) Eosinophils % (Manual) Basophils % (Manual) Nucleated RBC % Seg Neutrophils # Seg Neutrophils # Man Lymphocytes # (Manual) Monocytes # (Manual) Eosinophils # (Manual) PT INR Fibrinogen dRVVT Confirm Interp Factor V Activity POC ABG pH 7.465 H POC ABG pCO2 32.0 L POC ABG pO2 Sodium Potassium Chloride Carbon Dioxide BUN Creatinine Glucose POC Glucose 165 H 160 H Lactic Acid Calcium Phosphorus Magnesium Direct Bilirubin AST ALT Alkaline Phosphatase Lactate Dehydrogenase Troponin T C-Reactive Protein Total Protein Albumin Prealbumin Triglycerides Cholesterol LDL Cholesterol Direct HDL Cholesterol Urine pH Urine WBC (Auto) Urine Creatinine Urine Total Protein Vancomycin Trough Rheumatoid Factor Complement C4 Miscellaneous Test Crossmatch 09/06/16 09/07/16 09/07/16 23:45 02:47 02:47 WBC RBC Hgb Hct MCV MCH MCHC RDW Plt Count Lymph % (Auto) [place] % (Auto) Lymph # [place] # Baso # Seg Neutrophils % Seg Neuts % (Manual) Lymphocytes % (Manual) Monocytes % (Manual) Eosinophils % (Manual) Basophils % (Manual) Nucleated RBC % Seg Neutrophils # Seg Neutrophils # Man Lymphocytes # (Manual) Monocytes # (Manual) Eosinophils # (Manual) PT INR Fibrinogen dRVVT Confirm Interp Factor V Activity POC ABG pH POC ABG pCO2 POC ABG pO2 Sodium Potassium Chloride Carbon Dioxide BUN Creatinine Glucose POC Glucose 204 H Lactic Acid Calcium Phosphorus Magnesium Direct Bilirubin AST ALT Alkaline Phosphatase Lactate Dehydrogenase Troponin T C-Reactive Protein Total Protein Albumin Prealbumin Triglycerides Cholesterol LDL Cholesterol Direct HDL Cholesterol Urine pH Urine WBC (Auto) 68.0 H Urine Creatinine 106.1 H Urine Total Protein Vancomycin Trough Rheumatoid Factor Complement C4 Miscellaneous Test Crossmatch 09/07/16 09/07/16 09/07/16 04:50 06:19 06:39 WBC RBC Hgb Hct MCV MCH MCHC RDW Plt Count Lymph % (Auto) [place] % (Auto) Lymph # [place] # Baso # Seg Neutrophils % Seg Neuts % (Manual) Lymphocytes % (Manual) Monocytes % (Manual) Eosinophils % (Manual) Basophils % (Manual) Nucleated RBC % Seg Neutrophils # Seg Neutrophils # Man Lymphocytes # (Manual) Monocytes # (Manual) Eosinophils # (Manual) PT INR Fibrinogen dRVVT Confirm Interp Factor V Activity POC ABG pH 7.457 H POC ABG pCO2 32.1 L POC ABG pO2 76 L Sodium 132 L Potassium Chloride 94.7 L Carbon Dioxide BUN 53 H Creatinine 2.9 H Glucose 151 H POC Glucose 149 H Lactic Acid Calcium Phosphorus Magnesium Direct Bilirubin AST ALT Alkaline Phosphatase Lactate Dehydrogenase Troponin T C-Reactive Protein Total Protein Albumin Prealbumin Triglycerides Cholesterol LDL Cholesterol Direct HDL Cholesterol Urine pH Urine WBC (Auto) Urine Creatinine Urine Total Protein Vancomycin Trough Rheumatoid Factor Complement C4 Miscellaneous Test Crossmatch 09/07/16 09/07/16 09/07/16 09:20 11:43 11:43 WBC 19.4 H RBC Hgb 8.3 L Hct 26.4 L D MCV 72 L D MCH 22 L MCHC RDW 17.9 H Plt Count Lymph % (Auto) 8.5 L [place] % (Auto) Lymph # [place] # 1.0 H Baso # Seg Neutrophils % 85.8 H Seg Neuts % (Manual) Lymphocytes % (Manual) Monocytes % (Manual) Eosinophils % (Manual) Basophils % (Manual) Nucleated RBC % Seg Neutrophils # 16.6 H Seg Neutrophils # Man Lymphocytes # (Manual) Monocytes # (Manual) Eosinophils # (Manual) PT INR Fibrinogen dRVVT Confirm Interp Factor V Activity POC ABG pH POC ABG pCO2 POC ABG pO2 Sodium 134 L Potassium Chloride 97.2 L Carbon Dioxide 20 L BUN 58 H Creatinine 2.9 H Glucose 147 H POC Glucose Lactic Acid Calcium Phosphorus 2.40 L Magnesium 2.40 H Direct Bilirubin AST ALT Alkaline Phosphatase Lactate Dehydrogenase Troponin T C-Reactive Protein Total Protein 5.8 L Albumin 2.2 L Prealbumin Triglycerides Cholesterol LDL Cholesterol Direct HDL Cholesterol Urine pH Urine WBC (Auto) Urine Creatinine Urine Total Protein Vancomycin Trough Rheumatoid Factor Complement C4 58 H Miscellaneous Test Crossmatch 09/07/16 09/07/16 09/07/16 11:50 16:00 17:31 WBC RBC Hgb Hct MCV MCH MCHC RDW Plt Count Lymph % (Auto) [place] % (Auto) Lymph # [place] # Baso # Seg Neutrophils % Seg Neuts % (Manual) Lymphocytes % (Manual) Monocytes % (Manual) Eosinophils % (Manual) Basophils % (Manual) Nucleated RBC % Seg Neutrophils # Seg Neutrophils # Man Lymphocytes # (Manual) Monocytes # (Manual) Eosinophils # (Manual) PT INR Fibrinogen dRVVT Confirm Interp Factor V Activity POC ABG pH POC ABG pCO2 POC ABG pO2 158 H Sodium Potassium Chloride Carbon Dioxide BUN Creatinine Glucose POC Glucose 175 H Lactic Acid Calcium Phosphorus Magnesium Direct Bilirubin AST ALT Alkaline Phosphatase Lactate Dehydrogenase Troponin T C-Reactive Protein Total Protein Albumin Prealbumin Triglycerides Cholesterol LDL Cholesterol Direct HDL Cholesterol Urine pH Urine WBC (Auto) Urine Creatinine 66.3 H Urine Total Protein Vancomycin Trough Rheumatoid Factor Complement C4 Miscellaneous Test Crossmatch 09/07/16 09/08/16 09/08/16 23:50 05:46 06:18 WBC 17.8 H RBC 3.58 L Hgb 8.1 L Hct 25.5 L MCV 71 L MCH 23 L MCHC RDW 18.4 H Plt Count Lymph % (Auto) [place] % (Auto) Lymph # [place] # Baso # Seg Neutrophils % Seg Neuts % (Manual) 92.0 H Lymphocytes % (Manual) 6.0 L Monocytes % (Manual) Eosinophils % (Manual) Basophils % (Manual) Nucleated RBC % Seg Neutrophils # Seg Neutrophils # Man 16.4 H Lymphocytes # (Manual) 1.1 L Monocytes # (Manual) Eosinophils # (Manual) PT INR Fibrinogen dRVVT Confirm Interp Factor V Activity POC ABG pH POC ABG pCO2 34.3 L POC ABG pO2 71 L Sodium Potassium Chloride Carbon Dioxide BUN Creatinine Glucose POC Glucose 216 H Lactic Acid Calcium Phosphorus Magnesium Direct Bilirubin AST ALT Alkaline Phosphatase Lactate Dehydrogenase Troponin T C-Reactive Protein Total Protein Albumin Prealbumin Triglycerides Cholesterol LDL Cholesterol Direct HDL Cholesterol Urine pH Urine WBC (Auto) Urine Creatinine Urine Total Protein Vancomycin Trough Rheumatoid Factor Complement C4 Miscellaneous Test Crossmatch 09/08/16 09/08/16 09/08/16 06:18 06:51 10:55 WBC RBC Hgb Hct MCV MCH MCHC RDW Plt Count Lymph % (Auto) [place] % (Auto) Lymph # [place] # Baso # Seg Neutrophils % Seg Neuts % (Manual) Lymphocytes % (Manual) Monocytes % (Manual) Eosinophils % (Manual) Basophils % (Manual) Nucleated RBC % Seg Neutrophils # Seg Neutrophils # Man Lymphocytes # (Manual) Monocytes # (Manual) Eosinophils # (Manual) PT INR Fibrinogen dRVVT Confirm Interp Factor V Activity POC ABG pH POC ABG pCO2 POC ABG pO2 Sodium 133 L Potassium Chloride 96.9 L Carbon Dioxide 20 L BUN 63 H Creatinine 2.7 H Glucose 195 H POC Glucose 204 H 169 H Lactic Acid Calcium Phosphorus Magnesium Direct Bilirubin AST ALT Alkaline Phosphatase Lactate Dehydrogenase Troponin T C-Reactive Protein Total Protein Albumin Prealbumin Triglycerides Cholesterol LDL Cholesterol Direct HDL Cholesterol Urine pH Urine WBC (Auto) Urine Creatinine Urine Total Protein Vancomycin Trough Rheumatoid Factor Complement C4 Miscellaneous Test Crossmatch 09/08/16 09/08/16 09/08/16 11:48 11:48 11:48 WBC RBC Hgb Hct MCV MCH MCHC RDW Plt Count Lymph % (Auto) [place] % (Auto) Lymph # [place] # Baso # Seg Neutrophils % Seg Neuts % (Manual) Lymphocytes % (Manual) Monocytes % (Manual) Eosinophils % (Manual) Basophils % (Manual) Nucleated RBC % Seg Neutrophils # Seg Neutrophils # Man Lymphocytes # (Manual) Monocytes # (Manual) Eosinophils # (Manual) PT INR Fibrinogen 750 H dRVVT Confirm Interp Factor V Activity POC ABG pH POC ABG pCO2 POC ABG pO2 Sodium Potassium Chloride Carbon Dioxide BUN Creatinine Glucose POC Glucose Lactic Acid Calcium Phosphorus Magnesium Direct Bilirubin AST ALT Alkaline Phosphatase Lactate Dehydrogenase Troponin T C-Reactive Protein 15.70 H Total Protein Albumin Prealbumin Triglycerides Cholesterol LDL Cholesterol Direct HDL Cholesterol Urine pH Urine WBC (Auto) Urine Creatinine Urine Total Protein Vancomycin Trough Rheumatoid Factor 24 H Complement C4 Miscellaneous Test Crossmatch 09/08/16 09/08/16 09/09/16 15:35 18:25 00:24 WBC RBC Hgb Hct MCV MCH MCHC RDW Plt Count Lymph % (Auto) [place] % (Auto) Lymph # [place] # Baso # Seg Neutrophils % Seg Neuts % (Manual) Lymphocytes % (Manual) Monocytes % (Manual) Eosinophils % (Manual) Basophils % (Manual) Nucleated RBC % Seg Neutrophils # Seg Neutrophils # Man Lymphocytes # (Manual) Monocytes # (Manual) Eosinophils # (Manual) PT INR Fibrinogen dRVVT Confirm Interp Factor V Activity 182 H POC ABG pH POC ABG pCO2 POC ABG pO2 Sodium Potassium Chloride Carbon Dioxide BUN Creatinine Glucose POC Glucose 184 H 216 H Lactic Acid Calcium Phosphorus Magnesium Direct Bilirubin AST ALT Alkaline Phosphatase Lactate Dehydrogenase Troponin T C-Reactive Protein Total Protein Albumin Prealbumin Triglycerides Cholesterol LDL Cholesterol Direct HDL Cholesterol Urine pH Urine WBC (Auto) Urine Creatinine Urine Total Protein Vancomycin Trough Rheumatoid Factor Complement C4 Miscellaneous Test Crossmatch 09/09/16 09/09/16 09/09/16 03:00 03:00 04:04 WBC 27.9 H RBC Hgb 8.7 L Hct 28.1 L MCV 72 L MCH 22 L MCHC RDW 18.4 H Plt Count 485 H Lymph % (Auto) [place] % (Auto) Lymph # [place] # Baso # Seg Neutrophils % Seg Neuts % (Manual) 77.0 H Lymphocytes % (Manual) 9.0 L Monocytes % (Manual) Eosinophils % (Manual) Basophils % (Manual) Nucleated RBC % Seg Neutrophils # Seg Neutrophils # Man 21.5 H Lymphocytes # (Manual) Monocytes # (Manual) 2.0 H Eosinophils # (Manual) PT INR Fibrinogen dRVVT Confirm Interp Factor V Activity POC ABG pH POC ABG pCO2 POC ABG pO2 121 H Sodium 135 L Potassium Chloride 96.3 L Carbon Dioxide 21 L BUN 83 H Creatinine 3.0 H Glucose 135 H POC Glucose Lactic Acid Calcium Phosphorus Magnesium Direct Bilirubin AST ALT Alkaline Phosphatase Lactate Dehydrogenase Troponin T C-Reactive Protein Total Protein Albumin Prealbumin Triglycerides Cholesterol LDL Cholesterol Direct HDL Cholesterol Urine pH Urine WBC (Auto) Urine Creatinine Urine Total Protein Vancomycin Trough Rheumatoid Factor Complement C4 Miscellaneous Test Crossmatch 09/09/16 09/09/16 09/09/16 05:41 11:55 14:13 WBC RBC Hgb Hct MCV MCH MCHC RDW Plt Count Lymph % (Auto) [place] % (Auto) Lymph # [place] # Baso # Seg Neutrophils % Seg Neuts % (Manual) Lymphocytes % (Manual) Monocytes % (Manual) Eosinophils % (Manual) Basophils % (Manual) Nucleated RBC % Seg Neutrophils # Seg Neutrophils # Man Lymphocytes # (Manual) Monocytes # (Manual) Eosinophils # (Manual) PT INR Fibrinogen dRVVT Confirm Interp Factor V Activity POC ABG pH POC ABG pCO2 POC ABG pO2 Sodium Potassium Chloride Carbon Dioxide BUN Creatinine Glucose POC Glucose 155 H 186 H Lactic Acid Calcium Phosphorus Magnesium Direct Bilirubin AST ALT Alkaline Phosphatase Lactate Dehydrogenase Troponin T C-Reactive Protein Total Protein Albumin Prealbumin Triglycerides Cholesterol LDL Cholesterol Direct HDL Cholesterol Urine pH Urine WBC (Auto) 25.0 H Urine Creatinine Urine Total Protein Vancomycin Trough Rheumatoid Factor Complement C4 Miscellaneous Test Crossmatch 09/09/16 09/09/16 09/10/16 17:33 23:13 05:09 WBC RBC Hgb Hct MCV MCH MCHC RDW Plt Count Lymph % (Auto) [place] % (Auto) Lymph # [place] # Baso # Seg Neutrophils % Seg Neuts % (Manual) Lymphocytes % (Manual) Monocytes % (Manual) Eosinophils % (Manual) Basophils % (Manual) Nucleated RBC % Seg Neutrophils # Seg Neutrophils # Man Lymphocytes # (Manual) Monocytes # (Manual) Eosinophils # (Manual) PT INR Fibrinogen dRVVT Confirm Interp Factor V Activity POC ABG pH POC ABG pCO2 POC ABG pO2 74 L Sodium Potassium Chloride Carbon Dioxide BUN Creatinine Glucose POC Glucose 211 H 215 H Lactic Acid Calcium Phosphorus Magnesium Direct Bilirubin AST ALT Alkaline Phosphatase Lactate Dehydrogenase Troponin T C-Reactive Protein Total Protein Albumin Prealbumin Triglycerides Cholesterol LDL Cholesterol Direct HDL Cholesterol Urine pH Urine WBC (Auto) Urine Creatinine Urine Total Protein Vancomycin Trough Rheumatoid Factor Complement C4 Miscellaneous Test Crossmatch 09/10/16 09/10/16 09/10/16 05:17 05:17 11:31 WBC 15.8 H RBC 3.25 L Hgb 7.3 L Hct 22.9 L MCV 71 L MCH 23 L MCHC RDW 18.4 H Plt Count Lymph % (Auto) [place] % (Auto) Lymph # [place] # Baso # Seg Neutrophils % Seg Neuts % (Manual) 91.0 H Lymphocytes % (Manual) 4.0 L Monocytes % (Manual) Eosinophils % (Manual) Basophils % (Manual) Nucleated RBC % Seg Neutrophils # Seg Neutrophils # Man 14.4 H Lymphocytes # (Manual) 0.6 L Monocytes # (Manual) Eosinophils # (Manual) PT INR Fibrinogen dRVVT Confirm Interp Factor V Activity POC ABG pH POC ABG pCO2 POC ABG pO2 Sodium Potassium Chloride Carbon Dioxide 21 L BUN 93 H Creatinine 2.9 H Glucose 146 H POC Glucose 188 H Lactic Acid Calcium 8.1 L Phosphorus Magnesium Direct Bilirubin AST ALT Alkaline Phosphatase Lactate Dehydrogenase Troponin T C-Reactive Protein Total Protein Albumin Prealbumin Triglycerides Cholesterol LDL Cholesterol Direct HDL Cholesterol Urine pH Urine WBC (Auto) Urine Creatinine Urine Total Protein Vancomycin Trough Rheumatoid Factor Complement C4 Miscellaneous Test Crossmatch 09/10/16 09/10/16 09/10/16 13:17 17:20 23:32 WBC RBC Hgb Hct MCV MCH MCHC RDW Plt Count Lymph % (Auto) [place] % (Auto) Lymph # [place] # Baso # Seg Neutrophils % Seg Neuts % (Manual) Lymphocytes % (Manual) Monocytes % (Manual) Eosinophils % (Manual) Basophils % (Manual) Nucleated RBC % Seg Neutrophils # Seg Neutrophils # Man Lymphocytes # (Manual) Monocytes # (Manual) Eosinophils # (Manual) PT INR Fibrinogen dRVVT Confirm Interp Factor V Activity POC ABG pH POC ABG pCO2 POC ABG pO2 Sodium Potassium Chloride Carbon Dioxide BUN Creatinine Glucose POC Glucose 199 H 186 H Lactic Acid Calcium Phosphorus Magnesium Direct Bilirubin AST ALT Alkaline Phosphatase Lactate Dehydrogenase Troponin T C-Reactive Protein Total Protein Albumin Prealbumin Triglycerides Cholesterol LDL Cholesterol Direct HDL Cholesterol Urine pH Urine WBC (Auto) Urine Creatinine Urine Total Protein Vancomycin Trough Rheumatoid Factor Complement C4 Miscellaneous Test Crossmatch See Detail 09/11/16 09/11/16 09/11/16 05:10 05:10 05:17 WBC 28.4 H RBC Hgb 9.2 L Hct 29.3 L D MCV 73 L MCH 23 L MCHC RDW 18.9 H Plt Count 452 H Lymph % (Auto) [place] % (Auto) Lymph # [place] # Baso # Seg Neutrophils % Seg Neuts % (Manual) 89.5 H Lymphocytes % (Manual) 2.0 L Monocytes % (Manual) Eosinophils % (Manual) Basophils % (Manual) Nucleated RBC % Seg Neutrophils # Seg Neutrophils # Man 25.4 H Lymphocytes # (Manual) 0.6 L Monocytes # (Manual) 1.3 H Eosinophils # (Manual) PT INR Fibrinogen dRVVT Confirm Interp Factor V Activity POC ABG pH POC ABG pCO2 POC ABG pO2 Sodium 136 L Potassium Chloride Carbon Dioxide 18 L BUN 107 H Creatinine 2.6 H Glucose 187 H POC Glucose 230 H Lactic Acid Calcium 8.3 L Phosphorus Magnesium Direct Bilirubin AST ALT Alkaline Phosphatase Lactate Dehydrogenase Troponin T C-Reactive Protein Total Protein Albumin Prealbumin Triglycerides Cholesterol LDL Cholesterol Direct HDL Cholesterol Urine pH Urine WBC (Auto) Urine Creatinine Urine Total Protein Vancomycin Trough Rheumatoid Factor Complement C4 Miscellaneous Test Crossmatch 09/11/16 09/11/16 09/11/16 05:55 12:02 17:32 WBC RBC Hgb Hct MCV MCH MCHC RDW Plt Count Lymph % (Auto) [place] % (Auto) Lymph # [place] # Baso # Seg Neutrophils % Seg Neuts % (Manual) Lymphocytes % (Manual) Monocytes % (Manual) Eosinophils % (Manual) Basophils % (Manual) Nucleated RBC % Seg Neutrophils # Seg Neutrophils # Man Lymphocytes # (Manual) Monocytes # (Manual) Eosinophils # (Manual) PT INR Fibrinogen dRVVT Confirm Interp Factor V Activity POC ABG pH POC ABG pCO2 33.8 L POC ABG pO2 Sodium Potassium Chloride Carbon Dioxide BUN Creatinine Glucose POC Glucose 191 H 239 H Lactic Acid Calcium Phosphorus Magnesium Direct Bilirubin AST ALT Alkaline Phosphatase Lactate Dehydrogenase Troponin T C-Reactive Protein Total Protein Albumin Prealbumin Triglycerides Cholesterol LDL Cholesterol Direct HDL Cholesterol Urine pH Urine WBC (Auto) Urine Creatinine Urine Total Protein Vancomycin Trough Rheumatoid Factor Complement C4 Miscellaneous Test Crossmatch 09/11/16 09/12/16 09/12/16 23:52 05:09 05:32 WBC RBC Hgb Hct MCV MCH MCHC RDW Plt Count Lymph % (Auto) [place] % (Auto) Lymph # [place] # Baso # Seg Neutrophils % Seg Neuts % (Manual) Lymphocytes % (Manual) Monocytes % (Manual) Eosinophils % (Manual) Basophils % (Manual) Nucleated RBC % Seg Neutrophils # Seg Neutrophils # Man Lymphocytes # (Manual) Monocytes # (Manual) Eosinophils # (Manual) PT INR Fibrinogen dRVVT Confirm Interp Factor V Activity POC ABG pH POC ABG pCO2 34.6 L POC ABG pO2 Sodium Potassium Chloride Carbon Dioxide BUN Creatinine Glucose POC Glucose 265 H 184 H Lactic Acid Calcium Phosphorus Magnesium Direct Bilirubin AST ALT Alkaline Phosphatase Lactate Dehydrogenase Troponin T C-Reactive Protein Total Protein Albumin Prealbumin Triglycerides Cholesterol LDL Cholesterol Direct HDL Cholesterol Urine pH Urine WBC (Auto) Urine Creatinine Urine Total Protein Vancomycin Trough Rheumatoid Factor Complement C4 Miscellaneous Test Crossmatch 09/12/16 09/12/16 09/12/16 06:45 06:45 07:22 WBC 31.7 H RBC 3.54 L Hgb 8.3 L Hct 25.9 L MCV 73 L MCH 23 L MCHC RDW 18.9 H Plt Count Lymph % (Auto) [place] % (Auto) Lymph # [place] # Baso # Seg Neutrophils % Seg Neuts % (Manual) 88.5 H Lymphocytes % (Manual) 4.5 L Monocytes % (Manual) Eosinophils % (Manual) Basophils % (Manual) Nucleated RBC % Seg Neutrophils # Seg Neutrophils # Man 28.1 H Lymphocytes # (Manual) Monocytes # (Manual) 1.0 H Eosinophils # (Manual) PT INR Fibrinogen dRVVT Confirm Interp Factor V Activity POC ABG pH POC ABG pCO2 POC ABG pO2 Sodium Potassium Chloride Carbon Dioxide 20 L BUN 115 H Creatinine 2.7 H Glucose 165 H POC Glucose Lactic Acid Calcium 8.0 L Phosphorus Magnesium Direct Bilirubin AST ALT Alkaline Phosphatase Lactate Dehydrogenase Troponin T C-Reactive Protein Total Protein Albumin Prealbumin Triglycerides 217 H Cholesterol LDL Cholesterol Direct HDL Cholesterol Urine pH Urine WBC (Auto) Urine Creatinine Urine Total Protein Vancomycin Trough Rheumatoid Factor Complement C4 Miscellaneous Test Crossmatch 09/12/16 09/12/16 09/12/16 07:22 09:59 12:21 WBC RBC Hgb Hct MCV MCH MCHC RDW Plt Count Lymph % (Auto) [place] % (Auto) Lymph # [place] # Baso # Seg Neutrophils % Seg Neuts % (Manual) Lymphocytes % (Manual) Monocytes % (Manual) Eosinophils % (Manual) Basophils % (Manual) Nucleated RBC % Seg Neutrophils # Seg Neutrophils # Man Lymphocytes # (Manual) Monocytes # (Manual) Eosinophils # (Manual) PT INR Fibrinogen dRVVT Confirm Interp Positive H Factor V Activity POC ABG pH POC ABG pCO2 POC ABG pO2 Sodium Potassium Chloride Carbon Dioxide BUN Creatinine Glucose POC Glucose 224 H Lactic Acid Calcium Phosphorus Magnesium Direct Bilirubin AST ALT Alkaline Phosphatase Lactate Dehydrogenase Troponin T C-Reactive Protein 1.70 H Total Protein Albumin Prealbumin Triglycerides Cholesterol LDL Cholesterol Direct HDL Cholesterol Urine pH Urine WBC (Auto) Urine Creatinine Urine Total Protein Vancomycin Trough Rheumatoid Factor Complement C4 Miscellaneous Test Crossmatch 09/12/16 09/12/16 09/13/16 16:51 23:28 04:00 WBC 45.0 H* RBC Hgb 9.4 L Hct MCV 75 L MCH 23 L MCHC RDW 19.0 H Plt Count 470 H Lymph % (Auto) [place] % (Auto) Lymph # [place] # Baso # Seg Neutrophils % Seg Neuts % (Manual) 89.0 H Lymphocytes % (Manual) 5.0 L Monocytes % (Manual) Eosinophils % (Manual) Basophils % (Manual) Nucleated RBC % Seg Neutrophils # Seg Neutrophils # Man 40.1 H Lymphocytes # (Manual) Monocytes # (Manual) Eosinophils # (Manual) PT INR Fibrinogen dRVVT Confirm Interp Factor V Activity POC ABG pH POC ABG pCO2 POC ABG pO2 Sodium Potassium Chloride Carbon Dioxide BUN Creatinine Glucose POC Glucose 169 H 150 H Lactic Acid Calcium Phosphorus Magnesium Direct Bilirubin AST ALT Alkaline Phosphatase Lactate Dehydrogenase Troponin T C-Reactive Protein Total Protein Albumin Prealbumin Triglycerides Cholesterol LDL Cholesterol Direct HDL Cholesterol Urine pH Urine WBC (Auto) Urine Creatinine Urine Total Protein Vancomycin Trough Rheumatoid Factor Complement C4 Miscellaneous Test Crossmatch 09/13/16 09/13/16 09/13/16 04:00 11:26 17:31 WBC RBC Hgb Hct MCV MCH MCHC RDW Plt Count Lymph % (Auto) [place] % (Auto) Lymph # [place] # Baso # Seg Neutrophils % Seg Neuts % (Manual) Lymphocytes % (Manual) Monocytes % (Manual) Eosinophils % (Manual) Basophils % (Manual) Nucleated RBC % Seg Neutrophils # Seg Neutrophils # Man Lymphocytes # (Manual) Monocytes # (Manual) Eosinophils # (Manual) PT INR Fibrinogen dRVVT Confirm Interp Factor V Activity POC ABG pH POC ABG pCO2 POC ABG pO2 Sodium Potassium Chloride Carbon Dioxide 20 L BUN 116 H Creatinine 3.0 H Glucose 172 H POC Glucose 140 H 183 H Lactic Acid Calcium Phosphorus Magnesium Direct Bilirubin AST ALT Alkaline Phosphatase Lactate Dehydrogenase Troponin T C-Reactive Protein Total Protein 6.2 L Albumin 2.9 L Prealbumin Triglycerides Cholesterol LDL Cholesterol Direct HDL Cholesterol Urine pH Urine WBC (Auto) Urine Creatinine Urine Total Protein Vancomycin Trough Rheumatoid Factor Complement C4 Miscellaneous Test Crossmatch 09/13/16 09/14/16 09/14/16 23:23 04:06 04:07 WBC 29.4 H RBC Hgb 8.9 L Hct 27.3 L MCV 75 L MCH 24 L MCHC RDW 19.1 H Plt Count Lymph % (Auto) [place] % (Auto) Lymph # [place] # Baso # Seg Neutrophils % Seg Neuts % (Manual) 84.0 H Lymphocytes % (Manual) 6.0 L Monocytes % (Manual) 9.0 H Eosinophils % (Manual) Basophils % (Manual) Nucleated RBC % Seg Neutrophils # Seg Neutrophils # Man 24.7 H Lymphocytes # (Manual) Monocytes # (Manual) 2.6 H Eosinophils # (Manual) PT INR Fibrinogen dRVVT Confirm Interp Factor V Activity POC ABG pH 7.342 L POC ABG pCO2 POC ABG pO2 116 H Sodium Potassium Chloride Carbon Dioxide BUN Creatinine Glucose POC Glucose 154 H Lactic Acid Calcium Phosphorus Magnesium Direct Bilirubin AST ALT Alkaline Phosphatase Lactate Dehydrogenase Troponin T C-Reactive Protein Total Protein Albumin Prealbumin Triglycerides Cholesterol LDL Cholesterol Direct HDL Cholesterol Urine pH Urine WBC (Auto) Urine Creatinine Urine Total Protein Vancomycin Trough Rheumatoid Factor Complement C4 Miscellaneous Test Crossmatch 09/14/16 09/14/16 09/14/16 04:07 05:29 12:19 WBC RBC Hgb Hct MCV MCH MCHC RDW Plt Count Lymph % (Auto) [place] % (Auto) Lymph # [place] # Baso # Seg Neutrophils % Seg Neuts % (Manual) Lymphocytes % (Manual) Monocytes % (Manual) Eosinophils % (Manual) Basophils % (Manual) Nucleated RBC % Seg Neutrophils # Seg Neutrophils # Man Lymphocytes # (Manual) Monocytes # (Manual) Eosinophils # (Manual) PT INR Fibrinogen dRVVT Confirm Interp Factor V Activity POC ABG pH POC ABG pCO2 POC ABG pO2 Sodium 136 L Potassium Chloride Carbon Dioxide 18 L BUN 121 H Creatinine 2.8 H Glucose 214 H POC Glucose 239 H 181 H Lactic Acid Calcium Phosphorus Magnesium Direct Bilirubin AST ALT Alkaline Phosphatase Lactate Dehydrogenase Troponin T C-Reactive Protein Total Protein Albumin Prealbumin Triglycerides Cholesterol LDL Cholesterol Direct HDL Cholesterol Urine pH Urine WBC (Auto) Urine Creatinine Urine Total Protein Vancomycin Trough Rheumatoid Factor Complement C4 Miscellaneous Test Crossmatch 09/14/16 09/14/16 09/15/16 18:12 23:37 05:00 WBC 26.1 H RBC 3.05 L Hgb 7.2 L Hct 22.9 L MCV 75 L MCH 24 L MCHC RDW 19.0 H Plt Count Lymph % (Auto) [place] % (Auto) Lymph # [place] # Baso # Seg Neutrophils % Seg Neuts % (Manual) Lymphocytes % (Manual) Monocytes % (Manual) Eosinophils % (Manual) Basophils % (Manual) Nucleated RBC % Seg Neutrophils # Seg Neutrophils # Man Lymphocytes # (Manual) Monocytes # (Manual) Eosinophils # (Manual) PT INR Fibrinogen dRVVT Confirm Interp Factor V Activity POC ABG pH POC ABG pCO2 POC ABG pO2 Sodium Potassium Chloride Carbon Dioxide BUN Creatinine Glucose POC Glucose 266 H 154 H Lactic Acid Calcium Phosphorus Magnesium Direct Bilirubin AST ALT Alkaline Phosphatase Lactate Dehydrogenase Troponin T C-Reactive Protein Total Protein Albumin Prealbumin Triglycerides Cholesterol LDL Cholesterol Direct HDL Cholesterol Urine pH Urine WBC (Auto) Urine Creatinine Urine Total Protein Vancomycin Trough Rheumatoid Factor Complement C4 Miscellaneous Test Crossmatch 09/15/16 09/15/16 09/15/16 05:00 05:17 12:45 WBC RBC Hgb Hct MCV MCH MCHC RDW Plt Count Lymph % (Auto) [place] % (Auto) Lymph # [place] # Baso # Seg Neutrophils % Seg Neuts % (Manual) Lymphocytes % (Manual) Monocytes % (Manual) Eosinophils % (Manual) Basophils % (Manual) Nucleated RBC % Seg Neutrophils # Seg Neutrophils # Man Lymphocytes # (Manual) Monocytes # (Manual) Eosinophils # (Manual) PT INR Fibrinogen dRVVT Confirm Interp Factor V Activity POC ABG pH POC ABG pCO2 POC ABG pO2 Sodium Potassium 5.2 H Chloride Carbon Dioxide 18 L BUN 139 H Creatinine 3.7 H Glucose 227 H POC Glucose 226 H 244 H Lactic Acid Calcium 8.3 L Phosphorus Magnesium Direct Bilirubin AST ALT Alkaline Phosphatase Lactate Dehydrogenase Troponin T C-Reactive Protein Total Protein Albumin Prealbumin Triglycerides Cholesterol LDL Cholesterol Direct HDL Cholesterol Urine pH Urine WBC (Auto) Urine Creatinine Urine Total Protein Vancomycin Trough Rheumatoid Factor Complement C4 Miscellaneous Test Crossmatch 09/15/16 09/15/16 09/15/16 14:32 17:33 23:35 WBC RBC Hgb Hct MCV MCH MCHC RDW Plt Count Lymph % (Auto) [place] % (Auto) Lymph # [place] # Baso # Seg Neutrophils % Seg Neuts % (Manual) Lymphocytes % (Manual) Monocytes % (Manual) Eosinophils % (Manual) Basophils % (Manual) Nucleated RBC % Seg Neutrophils # Seg Neutrophils # Man Lymphocytes # (Manual) Monocytes # (Manual) Eosinophils # (Manual) PT INR Fibrinogen dRVVT Confirm Interp Factor V Activity POC ABG pH POC ABG pCO2 27.7 L POC ABG pO2 120 H Sodium Potassium Chloride Carbon Dioxide BUN Creatinine Glucose POC Glucose 232 H 167 H Lactic Acid Calcium Phosphorus Magnesium Direct Bilirubin AST ALT Alkaline Phosphatase Lactate Dehydrogenase Troponin T C-Reactive Protein Total Protein Albumin Prealbumin Triglycerides Cholesterol LDL Cholesterol Direct HDL Cholesterol Urine pH Urine WBC (Auto) Urine Creatinine Urine Total Protein Vancomycin Trough Rheumatoid Factor Complement C4 Miscellaneous Test Crossmatch 09/16/16 09/16/16 09/16/16 03:58 10:27 10:27 WBC 19.0 H RBC 2.77 L Hgb 6.5 L Hct 20.9 L MCV 76 L MCH 23 L MCHC RDW 19.3 H Plt Count Lymph % (Auto) 11.0 L [place] % (Auto) Lymph # [place] # 1.1 H Baso # Seg Neutrophils % 82.5 H Seg Neuts % (Manual) Lymphocytes % (Manual) Monocytes % (Manual) Eosinophils % (Manual) Basophils % (Manual) Nucleated RBC % Seg Neutrophils # 15.7 H Seg Neutrophils # Man Lymphocytes # (Manual) Monocytes # (Manual) Eosinophils # (Manual) PT INR Fibrinogen dRVVT Confirm Interp Factor V Activity POC ABG pH POC ABG pCO2 POC ABG pO2 Sodium Potassium Chloride 109.3 H Carbon Dioxide 18 L BUN 139 H Creatinine 4.1 H Glucose 144 H POC Glucose 146 H Lactic Acid Calcium 8.1 L Phosphorus Magnesium Direct Bilirubin AST ALT Alkaline Phosphatase Lactate Dehydrogenase Troponin T C-Reactive Protein Total Protein Albumin Prealbumin Triglycerides Cholesterol LDL Cholesterol Direct HDL Cholesterol Urine pH Urine WBC (Auto) Urine Creatinine Urine Total Protein Vancomycin Trough Rheumatoid Factor Complement C4 Miscellaneous Test Crossmatch 09/16/16 09/16/16 09/16/16 12:04 12:10 13:55 WBC RBC Hgb Hct MCV MCH MCHC RDW Plt Count Lymph % (Auto) [place] % (Auto) Lymph # [place] # Baso # Seg Neutrophils % Seg Neuts % (Manual) Lymphocytes % (Manual) Monocytes % (Manual) Eosinophils % (Manual) Basophils % (Manual) Nucleated RBC % Seg Neutrophils # Seg Neutrophils # Man Lymphocytes # (Manual) Monocytes # (Manual) Eosinophils # (Manual) PT INR Fibrinogen dRVVT Confirm Interp Factor V Activity POC ABG pH POC ABG pCO2 32.9 L POC ABG pO2 Sodium Potassium Chloride Carbon Dioxide BUN Creatinine Glucose POC Glucose 185 H Lactic Acid Calcium Phosphorus Magnesium Direct Bilirubin AST ALT Alkaline Phosphatase Lactate Dehydrogenase Troponin T C-Reactive Protein Total Protein Albumin Prealbumin Triglycerides Cholesterol LDL Cholesterol Direct HDL Cholesterol Urine pH Urine WBC (Auto) Urine Creatinine Urine Total Protein Vancomycin Trough Rheumatoid Factor Complement C4 Miscellaneous Test Crossmatch See Detail 09/16/16 09/16/16 09/16/16 17:55 19:19 23:48 WBC RBC Hgb Hct MCV MCH MCHC RDW Plt Count Lymph % (Auto) [place] % (Auto) Lymph # [place] # Baso # Seg Neutrophils % Seg Neuts % (Manual) Lymphocytes % (Manual) Monocytes % (Manual) Eosinophils % (Manual) Basophils % (Manual) Nucleated RBC % Seg Neutrophils # Seg Neutrophils # Man Lymphocytes # (Manual) Monocytes # (Manual) Eosinophils # (Manual) PT INR Fibrinogen dRVVT Confirm Interp Factor V Activity POC ABG pH POC ABG pCO2 POC ABG pO2 Sodium Potassium Chloride Carbon Dioxide BUN Creatinine Glucose POC Glucose 222 H 107 H Lactic Acid Calcium Phosphorus Magnesium Direct Bilirubin AST ALT Alkaline Phosphatase Lactate Dehydrogenase Troponin T C-Reactive Protein Total Protein Albumin Prealbumin Triglycerides Cholesterol LDL Cholesterol Direct HDL Cholesterol Urine pH Urine WBC (Auto) Urine Creatinine 47.4 H Urine Total Protein 16 H Vancomycin Trough Rheumatoid Factor Complement C4 Miscellaneous Test Crossmatch 09/17/16 09/17/16 09/17/16 03:45 03:45 04:55 WBC 19.6 H RBC 3.41 L Hgb 8.5 L Hct 26.7 L MCV 78 L MCH 25 L MCHC RDW 19.9 H Plt Count Lymph % (Auto) 9.3 L [place] % (Auto) Lymph # [place] # 1.2 H Baso # Seg Neutrophils % 83.9 H Seg Neuts % (Manual) Lymphocytes % (Manual) Monocytes % (Manual) Eosinophils % (Manual) Basophils % (Manual) Nucleated RBC % Seg Neutrophils # 16.4 H Seg Neutrophils # Man Lymphocytes # (Manual) Monocytes # (Manual) Eosinophils # (Manual) PT INR Fibrinogen dRVVT Confirm Interp Factor V Activity POC ABG pH POC ABG pCO2 POC ABG pO2 Sodium 146 H Potassium 5.1 H Chloride 110.9 H Carbon Dioxide 16 L BUN 146 H Creatinine 4.0 H Glucose 108 H POC Glucose 133 H Lactic Acid Calcium Phosphorus Magnesium 3.00 H Direct Bilirubin AST ALT Alkaline Phosphatase Lactate Dehydrogenase Troponin T C-Reactive Protein Total Protein Albumin Prealbumin Triglycerides Cholesterol LDL Cholesterol Direct HDL Cholesterol Urine pH Urine WBC (Auto) Urine Creatinine Urine Total Protein Vancomycin Trough Rheumatoid Factor Complement C4 Miscellaneous Test Crossmatch 09/17/16 09/17/16 09/17/16 11:15 17:33 23:47 WBC RBC Hgb Hct MCV MCH MCHC RDW Plt Count Lymph % (Auto) [place] % (Auto) Lymph # [place] # Baso # Seg Neutrophils % Seg Neuts % (Manual) Lymphocytes % (Manual) Monocytes % (Manual) Eosinophils % (Manual) Basophils % (Manual) Nucleated RBC % Seg Neutrophils # Seg Neutrophils # Man Lymphocytes # (Manual) Monocytes # (Manual) Eosinophils # (Manual) PT INR Fibrinogen dRVVT Confirm Interp Factor V Activity POC ABG pH POC ABG pCO2 POC ABG pO2 Sodium Potassium Chloride Carbon Dioxide BUN Creatinine Glucose POC Glucose 176 H 246 H 148 H Lactic Acid Calcium Phosphorus Magnesium Direct Bilirubin AST ALT Alkaline Phosphatase Lactate Dehydrogenase Troponin T C-Reactive Protein Total Protein Albumin Prealbumin Triglycerides Cholesterol LDL Cholesterol Direct HDL Cholesterol Urine pH Urine WBC (Auto) Urine Creatinine Urine Total Protein Vancomycin Trough Rheumatoid Factor Complement C4 Miscellaneous Test Crossmatch 09/18/16 09/18/1609/18/17 05:33 08:31 08:31 WBC 18.0 H RBC 3.17 L Hgb 9.0 L Hct 25.7 L MCV MCH MCHC 35 H RDW 20.4 H Plt Count Lymph % (Auto) [place] % (Auto) Lymph # [place] # Baso # Seg Neutrophils % Seg Neuts % (Manual) Lymphocytes % (Manual) Monocytes % (Manual) Eosinophils % (Manual) Basophils % (Manual) Nucleated RBC % Seg Neutrophils # Seg Neutrophils # Man Lymphocytes # (Manual) Monocytes # (Manual) Eosinophils # (Manual) PT INR Fibrinogen dRVVT Confirm Interp Factor V Activity POC ABG pH POC ABG pCO2 POC ABG pO2 Sodium Potassium Chloride Carbon Dioxide 15 L BUN 124 H Creatinine 3.8 H Glucose POC Glucose 120 H Lactic Acid Calcium 8.1 L Phosphorus Magnesium Direct Bilirubin AST ALT Alkaline Phosphatase Lactate Dehydrogenase Troponin T C-Reactive Protein Total Protein Albumin Prealbumin Triglycerides Cholesterol LDL Cholesterol Direct HDL Cholesterol Urine pH Urine WBC (Auto) Urine Creatinine Urine Total Protein Vancomycin Trough Rheumatoid Factor Complement C4 Miscellaneous Test Crossmatch 09/18/16 09/18/16 09/18/16 12:03 15:34 17:50 WBC RBC Hgb Hct MCV MCH MCHC RDW Plt Count Lymph % (Auto) [place] % (Auto) Lymph # [place] # Baso # Seg Neutrophils % Seg Neuts % (Manual) Lymphocytes % (Manual) Monocytes % (Manual) Eosinophils % (Manual) Basophils % (Manual) Nucleated RBC % Seg Neutrophils # Seg Neutrophils # Man Lymphocytes # (Manual) Monocytes # (Manual) Eosinophils # (Manual) PT INR Fibrinogen dRVVT Confirm Interp Factor V Activity POC ABG pH POC ABG pCO2 25.7 L POC ABG pO2 66 L Sodium Potassium Chloride Carbon Dioxide BUN Creatinine Glucose POC Glucose 156 H 220 H Lactic Acid Calcium Phosphorus Magnesium Direct Bilirubin AST ALT Alkaline Phosphatase Lactate Dehydrogenase Troponin T C-Reactive Protein Total Protein Albumin Prealbumin Triglycerides Cholesterol LDL Cholesterol Direct HDL Cholesterol Urine pH Urine WBC (Auto) Urine Creatinine Urine Total Protein Vancomycin Trough Rheumatoid Factor Complement C4 Miscellaneous Test Crossmatch 09/19/16 09/19/16 09/19/16 06:21 09:50 09:50 WBC 17.1 H RBC 3.49 L Hgb 9.0 L Hct 28.1 L MCV MCH 26 L MCHC RDW 20.8 H Plt Count Lymph % (Auto) 11.5 L [place] % (Auto) 7.5 H Lymph # [place] # 1.3 H Baso # Seg Neutrophils % 79.8 H Seg Neuts % (Manual) Lymphocytes % (Manual) Monocytes % (Manual) Eosinophils % (Manual) Basophils % (Manual) Nucleated RBC % Seg Neutrophils # 13.7 H Seg Neutrophils # Man Lymphocytes # (Manual) Monocytes # (Manual) Eosinophils # (Manual) PT INR Fibrinogen dRVVT Confirm Interp Factor V Activity POC ABG pH POC ABG pCO2 POC ABG pO2 Sodium Potassium Chloride 108.6 H Carbon Dioxide 15 L BUN 125 H Creatinine 4.1 H Glucose 124 H POC Glucose 119 H Lactic Acid Calcium Phosphorus Magnesium Direct Bilirubin AST ALT Alkaline Phosphatase Lactate Dehydrogenase Troponin T C-Reactive Protein Total Protein Albumin Prealbumin Triglycerides Cholesterol LDL Cholesterol Direct HDL Cholesterol Urine pH Urine WBC (Auto) Urine Creatinine Urine Total Protein Vancomycin Trough Rheumatoid Factor Complement C4 Miscellaneous Test Crossmatch 09/19/16 09/19/16 09/19/16 11:25 17:53 23:36 WBC RBC Hgb Hct MCV MCH MCHC RDW Plt Count Lymph % (Auto) [place] % (Auto) Lymph # [place] # Baso # Seg Neutrophils % Seg Neuts % (Manual) Lymphocytes % (Manual) Monocytes % (Manual) Eosinophils % (Manual) Basophils % (Manual) Nucleated RBC % Seg Neutrophils # Seg Neutrophils # Man Lymphocytes # (Manual) Monocytes # (Manual) Eosinophils # (Manual) PT INR Fibrinogen dRVVT Confirm Interp Factor V Activity POC ABG pH POC ABG pCO2 POC ABG pO2 Sodium Potassium Chloride Carbon Dioxide BUN Creatinine Glucose POC Glucose 160 H 245 H 121 H Lactic Acid Calcium Phosphorus Magnesium Direct Bilirubin AST ALT Alkaline Phosphatase Lactate Dehydrogenase Troponin T C-Reactive Protein Total Protein Albumin Prealbumin Triglycerides Cholesterol LDL Cholesterol Direct HDL Cholesterol Urine pH Urine WBC (Auto) Urine Creatinine Urine Total Protein Vancomycin Trough Rheumatoid Factor Complement C4 Miscellaneous Test Crossmatch 09/20/16 09/20/16 09/20/16 04:10 04:10 04:10 WBC 17.0 H RBC 3.21 L Hgb 8.2 L Hct 25.5 L MCV MCH 26 L MCHC RDW 20.9 H Plt Count Lymph % (Auto) [place] % (Auto) Lymph # [place] # Baso # Seg Neutrophils % Seg Neuts % (Manual) Lymphocytes % (Manual) Monocytes % (Manual) Eosinophils % (Manual) Basophils % (Manual) Nucleated RBC % Seg Neutrophils # Seg Neutrophils # Man Lymphocytes # (Manual) Monocytes # (Manual) Eosinophils # (Manual) PT INR Fibrinogen dRVVT Confirm Interp Factor V Activity POC ABG pH POC ABG pCO2 POC ABG pO2 Sodium Potassium Chloride 111.0 H Carbon Dioxide 16 L BUN 129 H Creatinine 3.7 H Glucose 115 H POC Glucose Lactic Acid Calcium 8.2 L Phosphorus Magnesium Direct Bilirubin AST ALT Alkaline Phosphatase Lactate Dehydrogenase Troponin T C-Reactive Protein Total Protein Albumin Prealbumin Triglycerides 243 H Cholesterol LDL Cholesterol Direct HDL Cholesterol Urine pH Urine WBC (Auto) Urine Creatinine Urine Total Protein Vancomycin Trough Rheumatoid Factor Complement C4 Miscellaneous Test Crossmatch 09/20/16 09/20/16 09/20/16 05:40 11:52 16:50 WBC RBC Hgb Hct MCV MCH MCHC RDW Plt Count Lymph % (Auto) [place] % (Auto) Lymph # [place] # Baso # Seg Neutrophils % Seg Neuts % (Manual) Lymphocytes % (Manual) Monocytes % (Manual) Eosinophils % (Manual) Basophils % (Manual) Nucleated RBC % Seg Neutrophils # Seg Neutrophils # Man Lymphocytes # (Manual) Monocytes # (Manual) Eosinophils # (Manual) PT INR Fibrinogen dRVVT Confirm Interp Factor V Activity POC ABG pH POC ABG pCO2 POC ABG pO2 Sodium Potassium Chloride Carbon Dioxide BUN Creatinine Glucose POC Glucose 131 H 183 H 236 H Lactic Acid Calcium Phosphorus Magnesium Direct Bilirubin AST ALT Alkaline Phosphatase Lactate Dehydrogenase Troponin T C-Reactive Protein Total Protein Albumin Prealbumin Triglycerides Cholesterol LDL Cholesterol Direct HDL Cholesterol Urine pH Urine WBC (Auto) Urine Creatinine Urine Total Protein Vancomycin Trough Rheumatoid Factor Complement C4 Miscellaneous Test Crossmatch 09/20/16 09/21/16 09/21/16 23:51 03:30 04:44 WBC RBC Hgb Hct MCV MCH MCHC RDW Plt Count Lymph % (Auto) [place] % (Auto) Lymph # [place] # Baso # Seg Neutrophils % Seg Neuts % (Manual) Lymphocytes % (Manual) Monocytes % (Manual) Eosinophils % (Manual) Basophils % (Manual) Nucleated RBC % Seg Neutrophils # Seg Neutrophils # Man Lymphocytes # (Manual) Monocytes # (Manual) Eosinophils # (Manual) PT INR Fibrinogen dRVVT Confirm Interp Factor V Activity POC ABG pH POC ABG pCO2 POC ABG pO2 Sodium Potassium Chloride Carbon Dioxide BUN Creatinine Glucose POC Glucose 114 H 141 H Lactic Acid Calcium Phosphorus Magnesium 2.70 H Direct Bilirubin AST ALT Alkaline Phosphatase Lactate Dehydrogenase Troponin T C-Reactive Protein Total Protein Albumin Prealbumin Triglycerides Cholesterol LDL Cholesterol Direct HDL Cholesterol Urine pH Urine WBC (Auto) Urine Creatinine Urine Total Protein Vancomycin Trough Rheumatoid Factor Complement C4 Miscellaneous Test Crossmatch 09/21/16 09/21/16 09/21/16 07:45 07:45 10:01 WBC 13.8 H RBC 2.94 L Hgb 7.5 L Hct 23.5 L MCV MCH 26 L MCHC RDW 21.2 H Plt Count Lymph % (Auto) 6.9 L [place] % (Auto) 9.4 H Lymph # 0.9 L [place] # 1.3 H Baso # Seg Neutrophils % 83.2 H Seg Neuts % (Manual) Lymphocytes % (Manual) Monocytes % (Manual) Eosinophils % (Manual) Basophils % (Manual) Nucleated RBC % Seg Neutrophils # 11.5 H Seg Neutrophils # Man Lymphocytes # (Manual) Monocytes # (Manual) Eosinophils # (Manual) PT INR Fibrinogen dRVVT Confirm Interp Factor V Activity POC ABG pH 7.308 L POC ABG pCO2 31.9 L POC ABG pO2 148 H Sodium 147 H Potassium Chloride 114.2 H Carbon Dioxide 15 L BUN 120 H Creatinine 3.9 H Glucose 156 H POC Glucose Lactic Acid Calcium 8.2 L Phosphorus Magnesium Direct Bilirubin AST ALT Alkaline Phosphatase Lactate Dehydrogenase Troponin T C-Reactive Protein Total Protein Albumin Prealbumin Triglycerides Cholesterol LDL Cholesterol Direct HDL Cholesterol Urine pH Urine WBC (Auto) Urine Creatinine Urine Total Protein Vancomycin Trough Rheumatoid Factor Complement C4 Miscellaneous Test Crossmatch 09/21/16 09/21/16 09/21/16 12:00 12:03 13:00 WBC RBC Hgb Hct MCV MCH MCHC RDW Plt Count Lymph % (Auto) [place] % (Auto) Lymph # [place] # Baso # Seg Neutrophils % Seg Neuts % (Manual) Lymphocytes % (Manual) Monocytes % (Manual) Eosinophils % (Manual) Basophils % (Manual) Nucleated RBC % Seg Neutrophils # Seg Neutrophils # Man Lymphocytes # (Manual) Monocytes # (Manual) Eosinophils # (Manual) PT INR Fibrinogen dRVVT Confirm Interp Factor V Activity POC ABG pH POC ABG pCO2 POC ABG pO2 Sodium Potassium Chloride Carbon Dioxide BUN Creatinine Glucose POC Glucose 163 H Lactic Acid Calcium Phosphorus Magnesium Direct Bilirubin AST ALT Alkaline Phosphatase Lactate Dehydrogenase Troponin T C-Reactive Protein Total Protein Albumin Prealbumin Triglycerides Cholesterol LDL Cholesterol Direct HDL Cholesterol Urine pH Urine WBC (Auto) Urine Creatinine 54.8 H Urine Total Protein Vancomycin Trough 2.3 L Rheumatoid Factor Complement C4 Miscellaneous Test Crossmatch 09/21/16 09/21/16 09/22/16 16:51 23:17 06:27 WBC RBC Hgb Hct MCV MCH MCHC RDW Plt Count Lymph % (Auto) [place] % (Auto) Lymph # [place] # Baso # Seg Neutrophils % Seg Neuts % (Manual) Lymphocytes % (Manual) Monocytes % (Manual) Eosinophils % (Manual) Basophils % (Manual) Nucleated RBC % Seg Neutrophils # Seg Neutrophils # Man Lymphocytes # (Manual) Monocytes # (Manual) Eosinophils # (Manual) PT INR Fibrinogen dRVVT Confirm Interp Factor V Activity POC ABG pH POC ABG pCO2 POC ABG pO2 Sodium Potassium Chloride Carbon Dioxide BUN Creatinine Glucose POC Glucose 206 H 114 H 115 H Lactic Acid Calcium Phosphorus Magnesium Direct Bilirubin AST ALT Alkaline Phosphatase Lactate Dehydrogenase Troponin T C-Reactive Protein Total Protein Albumin Prealbumin Triglycerides Cholesterol LDL Cholesterol Direct HDL Cholesterol Urine pH Urine WBC (Auto) Urine Creatinine Urine Total Protein Vancomycin Trough Rheumatoid Factor Complement C4 Miscellaneous Test Crossmatch 09/22/16 09/22/16 09/22/16 07:50 07:50 12:00 WBC 17.8 H RBC 3.04 L Hgb 8.0 L Hct 24.7 L MCV MCH 26 L MCHC RDW 21.6 H Plt Count Lymph % (Auto) [place] % (Auto) Lymph # [place] # Baso # Seg Neutrophils % Seg Neuts % (Manual) Lymphocytes % (Manual) Monocytes % (Manual) Eosinophils % (Manual) Basophils % (Manual) Nucleated RBC % Seg Neutrophils # Seg Neutrophils # Man Lymphocytes # (Manual) Monocytes # (Manual) Eosinophils # (Manual) PT INR Fibrinogen dRVVT Confirm Interp Factor V Activity POC ABG pH POC ABG pCO2 POC ABG pO2 Sodium 150 H Potassium Chloride 118.2 H Carbon Dioxide 14 L BUN 111 H Creatinine 3.7 H Glucose 157 H POC Glucose 183 H Lactic Acid Calcium Phosphorus Magnesium Direct Bilirubin AST ALT Alkaline Phosphatase Lactate Dehydrogenase Troponin T C-Reactive Protein Total Protein Albumin Prealbumin Triglycerides Cholesterol LDL Cholesterol Direct HDL Cholesterol Urine pH Urine WBC (Auto) Urine Creatinine Urine Total Protein Vancomycin Trough Rheumatoid Factor Complement C4 Miscellaneous Test Crossmatch 09/22/16 09/22/16 09/23/16 17:29 23:10 05:00 WBC 19.2 H RBC 3.13 L Hgb 8.0 L Hct 25.2 L MCV MCH 26 L MCHC RDW 22.1 H Plt Count Lymph % (Auto) [place] % (Auto) Lymph # [place] # Baso # Seg Neutrophils % Seg Neuts % (Manual) 92.0 H Lymphocytes % (Manual) 3.0 L Monocytes % (Manual) Eosinophils % (Manual) Basophils % (Manual) Nucleated RBC % Seg Neutrophils # Seg Neutrophils # Man 17.7 H Lymphocytes # (Manual) 0.6 L Monocytes # (Manual) Eosinophils # (Manual) PT INR Fibrinogen dRVVT Confirm Interp Factor V Activity POC ABG pH POC ABG pCO2 POC ABG pO2 Sodium Potassium Chloride Carbon Dioxide BUN Creatinine Glucose POC Glucose 197 H 169 H Lactic Acid Calcium Phosphorus Magnesium Direct Bilirubin AST ALT Alkaline Phosphatase Lactate Dehydrogenase Troponin T C-Reactive Protein Total Protein Albumin Prealbumin Triglycerides Cholesterol LDL Cholesterol Direct HDL Cholesterol Urine pH Urine WBC (Auto) Urine Creatinine Urine Total Protein Vancomycin Trough Rheumatoid Factor Complement C4 Miscellaneous Test Crossmatch 09/23/16 09/23/16 09/23/16 05:00 05:00 05:10 WBC RBC Hgb Hct MCV MCH MCHC RDW Plt Count Lymph % (Auto) [place] % (Auto) Lymph # [place] # Baso # Seg Neutrophils % Seg Neuts % (Manual) Lymphocytes % (Manual) Monocytes % (Manual) Eosinophils % (Manual) Basophils % (Manual) Nucleated RBC % Seg Neutrophils # Seg Neutrophils # Man Lymphocytes # (Manual) Monocytes # (Manual) Eosinophils # (Manual) PT INR Fibrinogen dRVVT Confirm Interp Factor V Activity POC ABG pH POC ABG pCO2 POC ABG pO2 Sodium 147 H Potassium 3.2 L Chloride 115.7 H Carbon Dioxide 13 L BUN 111 H Creatinine 3.8 H Glucose 194 H POC Glucose 188 H Lactic Acid Calcium 7.3 L D Phosphorus Magnesium Direct Bilirubin AST ALT Alkaline Phosphatase Lactate Dehydrogenase Troponin T C-Reactive Protein 3.20 H Total Protein Albumin Prealbumin Triglycerides Cholesterol LDL Cholesterol Direct HDL Cholesterol Urine pH Urine WBC (Auto) Urine Creatinine Urine Total Protein Vancomycin Trough Rheumatoid Factor Complement C4 Miscellaneous Test Crossmatch 09/23/16 09/23/16 09/23/16 11:37 12:29 18:01 WBC RBC Hgb Hct MCV MCH MCHC RDW Plt Count Lymph % (Auto) [place] % (Auto) Lymph # [place] # Baso # Seg Neutrophils % Seg Neuts % (Manual) Lymphocytes % (Manual) Monocytes % (Manual) Eosinophils % (Manual) Basophils % (Manual) Nucleated RBC % Seg Neutrophils # Seg Neutrophils # Man Lymphocytes # (Manual) Monocytes # (Manual) Eosinophils # (Manual) PT INR Fibrinogen dRVVT Confirm Interp Factor V Activity POC ABG pH POC ABG pCO2 18.9 L POC ABG pO2 143 H Sodium Potassium Chloride Carbon Dioxide BUN Creatinine Glucose POC Glucose 153 H 108 H Lactic Acid Calcium Phosphorus Magnesium Direct Bilirubin AST ALT Alkaline Phosphatase Lactate Dehydrogenase Troponin T C-Reactive Protein Total Protein Albumin Prealbumin Triglycerides Cholesterol LDL Cholesterol Direct HDL Cholesterol Urine pH Urine WBC (Auto) Urine Creatinine Urine Total Protein Vancomycin Trough Rheumatoid Factor Complement C4 Miscellaneous Test Crossmatch 09/23/16 09/23/16 09/24/16 21:19 23:43 05:16 WBC RBC Hgb Hct MCV MCH MCHC RDW Plt Count Lymph % (Auto) [place] % (Auto) Lymph # [place] # Baso # Seg Neutrophils % Seg Neuts % (Manual) Lymphocytes % (Manual) Monocytes % (Manual) Eosinophils % (Manual) Basophils % (Manual) Nucleated RBC % Seg Neutrophils # Seg Neutrophils # Man Lymphocytes # (Manual) Monocytes # (Manual) Eosinophils # (Manual) PT INR Fibrinogen dRVVT Confirm Interp Factor V Activity POC ABG pH POC ABG pCO2 17.3 L POC ABG pO2 112 H Sodium Potassium Chloride Carbon Dioxide BUN Creatinine Glucose POC Glucose 143 H 164 H Lactic Acid Calcium Phosphorus Magnesium Direct Bilirubin AST ALT Alkaline Phosphatase Lactate Dehydrogenase Troponin T C-Reactive Protein Total Protein Albumin Prealbumin Triglycerides Cholesterol LDL Cholesterol Direct HDL Cholesterol Urine pH Urine WBC (Auto) Urine Creatinine Urine Total Protein Vancomycin Trough Rheumatoid Factor Complement C4 Miscellaneous Test Crossmatch 09/24/16 09/24/16 09/24/16 05:21 11:58 17:06 WBC RBC Hgb Hct MCV MCH MCHC RDW Plt Count Lymph % (Auto) [place] % (Auto) Lymph # [place] # Baso # Seg Neutrophils % Seg Neuts % (Manual) Lymphocytes % (Manual) Monocytes % (Manual) Eosinophils % (Manual) Basophils % (Manual) Nucleated RBC % Seg Neutrophils # Seg Neutrophils # Man Lymphocytes # (Manual) Monocytes # (Manual) Eosinophils # (Manual) PT INR Fibrinogen dRVVT Confirm Interp Factor V Activity POC ABG pH POC ABG pCO2 POC ABG pO2 Sodium Potassium Chloride Carbon Dioxide 10 L BUN 103 H Creatinine 4.3 H Glucose 163 H POC Glucose 173 H 167 H Lactic Acid Calcium 6.5 L Phosphorus Magnesium Direct Bilirubin AST ALT Alkaline Phosphatase Lactate Dehydrogenase Troponin T C-Reactive Protein Total Protein Albumin Prealbumin Triglycerides Cholesterol LDL Cholesterol Direct HDL Cholesterol Urine pH Urine WBC (Auto) Urine Creatinine Urine Total Protein Vancomycin Trough Rheumatoid Factor Complement C4 Miscellaneous Test Crossmatch 09/24/16 09/24/16 09/24/16 20:15 21:02 23:48 WBC RBC Hgb Hct MCV MCH MCHC RDW Plt Count Lymph % (Auto) [place] % (Auto) Lymph # [place] # Baso # Seg Neutrophils % Seg Neuts % (Manual) Lymphocytes % (Manual) Monocytes % (Manual) Eosinophils % (Manual) Basophils % (Manual) Nucleated RBC % Seg Neutrophils # Seg Neutrophils # Man Lymphocytes # (Manual) Monocytes # (Manual) Eosinophils # (Manual) PT INR Fibrinogen dRVVT Confirm Interp Factor V Activity POC ABG pH 7.288 L POC ABG pCO2 30.2 L 21.5 L POC ABG pO2 32 L 39 L Sodium Potassium Chloride Carbon Dioxide BUN Creatinine Glucose POC Glucose 109 H Lactic Acid Calcium Phosphorus Magnesium Direct Bilirubin AST ALT Alkaline Phosphatase Lactate Dehydrogenase Troponin T C-Reactive Protein Total Protein Albumin Prealbumin Triglycerides Cholesterol LDL Cholesterol Direct HDL Cholesterol Urine pH Urine WBC (Auto) Urine Creatinine Urine Total Protein Vancomycin Trough Rheumatoid Factor Complement C4 Miscellaneous Test Crossmatch 09/25/16 09/25/16 09/25/16 04:20 04:20 04:20 WBC RBC 2.58 L Hgb 7.0 L Hct 21.0 L MCV MCH 27 L MCHC RDW 23.8 H Plt Count Lymph % (Auto) [place] % (Auto) Lymph # [place] # Baso # Seg Neutrophils % Seg Neuts % (Manual) Lymphocytes % (Manual) 12.0 L Monocytes % (Manual) Eosinophils % (Manual) 7.0 H Basophils % (Manual) 2.0 H Nucleated RBC % Seg Neutrophils # Seg Neutrophils # Man Lymphocytes # (Manual) 0.9 L Monocytes # (Manual) Eosinophils # (Manual) 0.5 H PT INR Fibrinogen dRVVT Confirm Interp Factor V Activity POC ABG pH POC ABG pCO2 POC ABG pO2 Sodium Potassium Chloride Carbon Dioxide 15 L BUN 72 H Creatinine 3.8 H Glucose POC Glucose Lactic Acid Calcium 6.0 L Phosphorus 4.60 H Magnesium 1.60 L Direct Bilirubin AST ALT Alkaline Phosphatase Lactate Dehydrogenase Troponin T C-Reactive Protein Total Protein Albumin Prealbumin Triglycerides Cholesterol LDL Cholesterol Direct HDL Cholesterol Urine pH Urine WBC (Auto) Urine Creatinine Urine Total Protein Vancomycin Trough Rheumatoid Factor Complement C4 Miscellaneous Test Crossmatch 09/25/16 09/25/16 09/25/16 04:57 08:02 10:30 WBC RBC Hgb Hct MCV MCH MCHC RDW Plt Count Lymph % (Auto) [place] % (Auto) Lymph # [place] # Baso # Seg Neutrophils % Seg Neuts % (Manual) Lymphocytes % (Manual) Monocytes % (Manual) Eosinophils % (Manual) Basophils % (Manual) Nucleated RBC % Seg Neutrophils # Seg Neutrophils # Man Lymphocytes # (Manual) Monocytes # (Manual) Eosinophils # (Manual) PT INR Fibrinogen dRVVT Confirm Interp Factor V Activity POC ABG pH POC ABG pCO2 24.7 L POC ABG pO2 152 H Sodium Potassium Chloride Carbon Dioxide BUN Creatinine Glucose POC Glucose 113 H Lactic Acid Calcium Phosphorus Magnesium Direct Bilirubin AST ALT Alkaline Phosphatase Lactate Dehydrogenase Troponin T C-Reactive Protein Total Protein Albumin Prealbumin Triglycerides Cholesterol LDL Cholesterol Direct HDL Cholesterol Urine pH Urine WBC (Auto) Urine Creatinine Urine Total Protein Vancomycin Trough Rheumatoid Factor Complement C4 Miscellaneous Test Crossmatch See Detail 09/25/16 09/25/16 09/25/16 12:05 17:44 23:47 WBC RBC Hgb Hct MCV MCH MCHC RDW Plt Count Lymph % (Auto) [place] % (Auto) Lymph # [place] # Baso # Seg Neutrophils % Seg Neuts % (Manual) Lymphocytes % (Manual) Monocytes % (Manual) Eosinophils % (Manual) Basophils % (Manual) Nucleated RBC % Seg Neutrophils # Seg Neutrophils # Man Lymphocytes # (Manual) Monocytes # (Manual) Eosinophils # (Manual) PT INR Fibrinogen dRVVT Confirm Interp Factor V Activity POC ABG pH POC ABG pCO2 POC ABG pO2 Sodium Potassium Chloride Carbon Dioxide BUN Creatinine Glucose POC Glucose 117 H 119 H 150 H Lactic Acid Calcium Phosphorus Magnesium Direct Bilirubin AST ALT Alkaline Phosphatase Lactate Dehydrogenase Troponin T C-Reactive Protein Total Protein Albumin Prealbumin Triglycerides Cholesterol LDL Cholesterol Direct HDL Cholesterol Urine pH Urine WBC (Auto) Urine Creatinine Urine Total Protein Vancomycin Trough Rheumatoid Factor Complement C4 Miscellaneous Test Crossmatch 09/26/16 09/26/16 09/26/16 04:25 04:25 04:25 WBC RBC 2.65 L Hgb 7.4 L Hct 21.6 L MCV MCH MCHC RDW 22.5 H Plt Count Lymph % (Auto) [place] % (Auto) Lymph # [place] # Baso # Seg Neutrophils % Seg Neuts % (Manual) Lymphocytes % (Manual) 6.0 L Monocytes % (Manual) Eosinophils % (Manual) 11.0 H Basophils % (Manual) Nucleated RBC % Seg Neutrophils # Seg Neutrophils # Man Lymphocytes # (Manual) 0.4 L Monocytes # (Manual) Eosinophils # (Manual) 0.6 H PT INR Fibrinogen dRVVT Confirm Interp Factor V Activity POC ABG pH POC ABG pCO2 POC ABG pO2 Sodium Potassium Chloride 97.0 L Carbon Dioxide 19 L BUN 43 H Creatinine 2.6 H Glucose 130 H POC Glucose Lactic Acid 4.40 H* Calcium 6.7 L Phosphorus Magnesium Direct Bilirubin AST ALT Alkaline Phosphatase Lactate Dehydrogenase Troponin T C-Reactive Protein Total Protein Albumin Prealbumin Triglycerides Cholesterol LDL Cholesterol Direct HDL Cholesterol Urine pH Urine WBC (Auto) Urine Creatinine Urine Total Protein Vancomycin Trough Rheumatoid Factor Complement C4 Miscellaneous Test Crossmatch 09/26/16 09/26/16 09/26/16 05:20 11:44 12:12 WBC RBC Hgb Hct MCV MCH MCHC RDW Plt Count Lymph % (Auto) [place] % (Auto) Lymph # [place] # Baso # Seg Neutrophils % Seg Neuts % (Manual) Lymphocytes % (Manual) Monocytes % (Manual) Eosinophils % (Manual) Basophils % (Manual) Nucleated RBC % Seg Neutrophils # Seg Neutrophils # Man Lymphocytes # (Manual) Monocytes # (Manual) Eosinophils # (Manual) PT INR Fibrinogen dRVVT Confirm Interp Factor V Activity POC ABG pH POC ABG pCO2 27.0 L POC ABG pO2 69 L Sodium Potassium Chloride Carbon Dioxide BUN Creatinine Glucose POC Glucose 121 H 128 H Lactic Acid Calcium Phosphorus Magnesium Direct Bilirubin AST ALT Alkaline Phosphatase Lactate Dehydrogenase Troponin T C-Reactive Protein Total Protein Albumin Prealbumin Triglycerides Cholesterol LDL Cholesterol Direct HDL Cholesterol Urine pH Urine WBC (Auto) Urine Creatinine Urine Total Protein Vancomycin Trough Rheumatoid Factor Complement C4 Miscellaneous Test Crossmatch 09/26/16 09/26/16 09/27/16 18:31 23:40 08:20 WBC RBC Hgb Hct MCV MCH MCHC RDW Plt Count Lymph % (Auto) [place] % (Auto) Lymph # [place] # Baso # Seg Neutrophils % Seg Neuts % (Manual) Lymphocytes % (Manual) Monocytes % (Manual) Eosinophils % (Manual) Basophils % (Manual) Nucleated RBC % Seg Neutrophils # Seg Neutrophils # Man Lymphocytes # (Manual) Monocytes # (Manual) Eosinophils # (Manual) PT INR Fibrinogen dRVVT Confirm Interp Factor V Activity POC ABG pH POC ABG pCO2 POC ABG pO2 Sodium Potassium Chloride Carbon Dioxide BUN Creatinine Glucose POC Glucose 120 H 133 H Lactic Acid 4.10 H* Calcium Phosphorus Magnesium Direct Bilirubin AST ALT Alkaline Phosphatase Lactate Dehydrogenase Troponin T C-Reactive Protein Total Protein Albumin Prealbumin Triglycerides Cholesterol LDL Cholesterol Direct HDL Cholesterol Urine pH Urine WBC (Auto) Urine Creatinine Urine Total Protein Vancomycin Trough Rheumatoid Factor Complement C4 Miscellaneous Test Crossmatch 09/27/16 09/27/16 09/27/16 11:23 15:00 18:15 WBC RBC Hgb Hct MCV MCH MCHC RDW Plt Count Lymph % (Auto) [place] % (Auto) Lymph # [place] # Baso # Seg Neutrophils % Seg Neuts % (Manual) Lymphocytes % (Manual) Monocytes % (Manual) Eosinophils % (Manual) Basophils % (Manual) Nucleated RBC % Seg Neutrophils # Seg Neutrophils # Man Lymphocytes # (Manual) Monocytes # (Manual) Eosinophils # (Manual) PT INR Fibrinogen dRVVT Confirm Interp Factor V Activity POC ABG pH 7.459 H POC ABG pCO2 27.1 L POC ABG pO2 140 H Sodium Potassium Chloride Carbon Dioxide BUN Creatinine Glucose POC Glucose 114 H 127 H Lactic Acid Calcium Phosphorus Magnesium Direct Bilirubin AST ALT Alkaline Phosphatase Lactate Dehydrogenase Troponin T C-Reactive Protein Total Protein Albumin Prealbumin Triglycerides Cholesterol LDL Cholesterol Direct HDL Cholesterol Urine pH Urine WBC (Auto) Urine Creatinine Urine Total Protein Vancomycin Trough Rheumatoid Factor Complement C4 Miscellaneous Test Crossmatch 09/27/16 09/27/16 09/28/16 Unknown Unknown 03:45 WBC RBC 2.49 L Hgb 6.8 L Hct 20.7 L MCV MCH 27 L MCHC RDW 22.1 H Plt Count Lymph % (Auto) [place] % (Auto) Lymph # [place] # Baso # Seg Neutrophils % Seg Neuts % (Manual) 32.0 L Lymphocytes % (Manual) 12.0 L Monocytes % (Manual) 11.0 H Eosinophils % (Manual) 10.0 H Basophils % (Manual) Nucleated RBC % Seg Neutrophils # Seg Neutrophils # Man Lymphocytes # (Manual) 1.0 L Monocytes # (Manual) 0.9 H Eosinophils # (Manual) 0.8 H PT INR Fibrinogen dRVVT Confirm Interp Factor V Activity POC ABG pH POC ABG pCO2 POC ABG pO2 Sodium 135 L 135 L Potassium 3.5 L Chloride 93.6 L 94.4 L Carbon Dioxide 17 L 21 L BUN 45 H 28 H Creatinine 3.3 H 2.5 H Glucose 106 H POC Glucose Lactic Acid Calcium 7.3 L 7.1 L Phosphorus Magnesium Direct Bilirubin AST ALT Alkaline Phosphatase Lactate Dehydrogenase Troponin T C-Reactive Protein Total Protein Albumin Prealbumin Triglycerides Cholesterol LDL Cholesterol Direct HDL Cholesterol Urine pH Urine WBC (Auto) Urine Creatinine Urine Total Protein Vancomycin Trough Rheumatoid Factor Complement C4 Miscellaneous Test Crossmatch 09/28/16 09/28/16 09/28/16 03:45 07:25 11:58 WBC 13.3 H RBC 3.01 L Hgb 8.4 L Hct 25.0 L MCV MCH MCHC RDW 20.5 H Plt Count 128 L Lymph % (Auto) [place] % (Auto) Lymph # [place] # Baso # Seg Neutrophils % Seg Neuts % (Manual) Lymphocytes % (Manual) 7.0 L Monocytes % (Manual) Eosinophils % (Manual) 6.0 H Basophils % (Manual) Nucleated RBC % Seg Neutrophils # Seg Neutrophils # Man Lymphocytes # (Manual) 0.9 L Monocytes # (Manual) Eosinophils # (Manual) 0.8 H PT INR Fibrinogen dRVVT Confirm Interp Factor V Activity POC ABG pH POC ABG pCO2 POC ABG pO2 Sodium Potassium Chloride Carbon Dioxide BUN Creatinine Glucose POC Glucose 121 H Lactic Acid 4.50 H* Calcium Phosphorus Magnesium Direct Bilirubin AST ALT Alkaline Phosphatase Lactate Dehydrogenase Troponin T C-Reactive Protein Total Protein Albumin Prealbumin Triglycerides Cholesterol LDL Cholesterol Direct HDL Cholesterol Urine pH Urine WBC (Auto) Urine Creatinine Urine Total Protein Vancomycin Trough Rheumatoid Factor Complement C4 Miscellaneous Test Crossmatch 09/29/16 09/29/16 09/29/16 06:45 06:45 06:45 WBC 14.9 H RBC 2.74 L Hgb 7.6 L Hct 23.2 L MCV MCH MCHC RDW 20.5 H Plt Count 81 L Lymph % (Auto) [place] % (Auto) Lymph # [place] # Baso # Seg Neutrophils % Seg Neuts % (Manual) 81.0 H Lymphocytes % (Manual) 4.0 L Monocytes % (Manual) Eosinophils % (Manual) Basophils % (Manual) Nucleated RBC % Seg Neutrophils # Seg Neutrophils # Man 12.1 H Lymphocytes # (Manual) 0.6 L Monocytes # (Manual) Eosinophils # (Manual) PT INR Fibrinogen dRVVT Confirm Interp Factor V Activity POC ABG pH POC ABG pCO2 POC ABG pO2 Sodium 133 L Potassium 3.4 L Chloride 92.5 L Carbon Dioxide 21 L BUN 33 H Creatinine 3.0 H Glucose POC Glucose Lactic Acid Calcium 6.6 L Phosphorus Magnesium 1.40 L Direct Bilirubin 0.9 H AST ALT Alkaline Phosphatase Lactate Dehydrogenase Troponin T C-Reactive Protein Total Protein 4.3 L Albumin 1.3 L Prealbumin Triglycerides Cholesterol LDL Cholesterol Direct HDL Cholesterol Urine pH Urine WBC (Auto) Urine Creatinine Urine Total Protein Vancomycin Trough Rheumatoid Factor Complement C4 Miscellaneous Test Crossmatch 09/29/16 09/29/16 09/30/16 17:52 20:12 00:07 WBC RBC Hgb Hct MCV MCH MCHC RDW Plt Count Lymph % (Auto) [place] % (Auto) Lymph # [place] # Baso # Seg Neutrophils % Seg Neuts % (Manual) Lymphocytes % (Manual) Monocytes % (Manual) Eosinophils % (Manual) Basophils % (Manual) Nucleated RBC % Seg Neutrophils # Seg Neutrophils # Man Lymphocytes # (Manual) Monocytes # (Manual) Eosinophils # (Manual) PT INR Fibrinogen dRVVT Confirm Interp Factor V Activity POC ABG pH POC ABG pCO2 POC ABG pO2 Sodium Potassium Chloride Carbon Dioxide BUN Creatinine Glucose POC Glucose 50 L 51 L Lactic Acid Calcium Phosphorus Magnesium Direct Bilirubin AST ALT Alkaline Phosphatase Lactate Dehydrogenase Troponin T 0.204 H* C-Reactive Protein Total Protein Albumin Prealbumin Triglycerides Cholesterol 31 L LDL Cholesterol Direct 4 L HDL Cholesterol 3 L Urine pH Urine WBC (Auto) Urine Creatinine Urine Total Protein Vancomycin Trough Rheumatoid Factor Complement C4 Miscellaneous Test Crossmatch 09/30/16 09/30/16 09/30/16 01:30 05:15 06:10 WBC RBC Hgb Hct MCV MCH MCHC RDW Plt Count Lymph % (Auto) [place] % (Auto) Lymph # [place] # Baso # Seg Neutrophils % Seg Neuts % (Manual) Lymphocytes % (Manual) Monocytes % (Manual) Eosinophils % (Manual) Basophils % (Manual) Nucleated RBC % Seg Neutrophils # Seg Neutrophils # Man Lymphocytes # (Manual) Monocytes # (Manual) Eosinophils # (Manual) PT INR Fibrinogen dRVVT Confirm Interp Factor V Activity POC ABG pH POC ABG pCO2 POC ABG pO2 Sodium 133 L Potassium 3.2 L Chloride 93.2 L Carbon Dioxide 19 L BUN 36 H Creatinine 3.2 H Glucose 104 H POC Glucose 167 H 146 H Lactic Acid Calcium 6.4 L Phosphorus Magnesium 1.60 L Direct Bilirubin AST ALT Alkaline Phosphatase Lactate Dehydrogenase Troponin T C-Reactive Protein Total Protein Albumin Prealbumin Triglycerides Cholesterol LDL Cholesterol Direct HDL Cholesterol Urine pH Urine WBC (Auto) Urine Creatinine Urine Total Protein Vancomycin Trough Rheumatoid Factor Complement C4 Miscellaneous Test Crossmatch 09/30/16 09/30/16 09/30/16 11:26 13:39 18:38 WBC RBC Hgb Hct MCV MCH MCHC RDW Plt Count Lymph % (Auto) [place] % (Auto) Lymph # [place] # Baso # Seg Neutrophils % Seg Neuts % (Manual) Lymphocytes % (Manual) Monocytes % (Manual) Eosinophils % (Manual) Basophils % (Manual) Nucleated RBC % Seg Neutrophils # Seg Neutrophils # Man Lymphocytes # (Manual) Monocytes # (Manual) Eosinophils # (Manual) PT INR Fibrinogen dRVVT Confirm Interp Factor V Activity POC ABG pH 7.479 H POC ABG pCO2 29.8 L POC ABG pO2 117 H Sodium Potassium Chloride Carbon Dioxide BUN Creatinine Glucose POC Glucose 140 H 122 H Lactic Acid Calcium Phosphorus Magnesium Direct Bilirubin AST ALT Alkaline Phosphatase Lactate Dehydrogenase Troponin T C-Reactive Protein Total Protein Albumin Prealbumin Triglycerides Cholesterol LDL Cholesterol Direct HDL Cholesterol Urine pH Urine WBC (Auto) Urine Creatinine Urine Total Protein Vancomycin Trough Rheumatoid Factor Complement C4 Miscellaneous Test Crossmatch 10/01/16 10/01/16 10/01/16 06:00 06:00 12:37 WBC 12.6 H RBC 2.75 L Hgb 7.3 L Hct 23.3 L MCV MCH 27 L MCHC RDW 20.6 H Plt Count 72 L Lymph % (Auto) [place] % (Auto) Lymph # [place] # Baso # Seg Neutrophils % Seg Neuts % (Manual) 31.0 L Lymphocytes % (Manual) 8.0 L Monocytes % (Manual) Eosinophils % (Manual) Basophils % (Manual) Nucleated RBC % 3.0 H Seg Neutrophils # Seg Neutrophils # Man Lymphocytes # (Manual) 1.0 L Monocytes # (Manual) Eosinophils # (Manual) PT INR Fibrinogen dRVVT Confirm Interp Factor V Activity POC ABG pH POC ABG pCO2 POC ABG pO2 Sodium 127 L Potassium Chloride 86.8 L Carbon Dioxide 20 L BUN 42 H Creatinine 3.5 H Glucose POC Glucose 65 L Lactic Acid Calcium 7.0 L Phosphorus Magnesium Direct Bilirubin AST ALT Alkaline Phosphatase Lactate Dehydrogenase Troponin T C-Reactive Protein Total Protein Albumin Prealbumin Triglycerides Cholesterol LDL Cholesterol Direct HDL Cholesterol Urine pH Urine WBC (Auto) Urine Creatinine Urine Total Protein Vancomycin Trough Rheumatoid Factor Complement C4 Miscellaneous Test Crossmatch 10/01/16 10/01/16 10/02/16 17:39 23:32 00:59 WBC RBC Hgb Hct MCV MCH MCHC RDW Plt Count Lymph % (Auto) [place] % (Auto) Lymph # [place] # Baso # Seg Neutrophils % Seg Neuts % (Manual) Lymphocytes % (Manual) Monocytes % (Manual) Eosinophils % (Manual) Basophils % (Manual) Nucleated RBC % Seg Neutrophils # Seg Neutrophils # Man Lymphocytes # (Manual) Monocytes # (Manual) Eosinophils # (Manual) PT INR Fibrinogen dRVVT Confirm Interp Factor V Activity POC ABG pH POC ABG pCO2 POC ABG pO2 Sodium Potassium Chloride Carbon Dioxide BUN Creatinine Glucose POC Glucose 107 H 52 L 145 H Lactic Acid Calcium Phosphorus Magnesium Direct Bilirubin AST ALT Alkaline Phosphatase Lactate Dehydrogenase Troponin T C-Reactive Protein Total Protein Albumin Prealbumin Triglycerides Cholesterol LDL Cholesterol Direct HDL Cholesterol Urine pH Urine WBC (Auto) Urine Creatinine Urine Total Protein Vancomycin Trough Rheumatoid Factor Complement C4 Miscellaneous Test Crossmatch 10/02/16 10/02/16 10/02/16 10:30 10:50 10:50 WBC 14.7 H RBC 2.76 L Hgb 7.4 L Hct 23.6 L MCV MCH 27 L MCHC RDW 20.2 H Plt Count 79 L Lymph % (Auto) [place] % (Auto) Lymph # [place] # Baso # Seg Neutrophils % Seg Neuts % (Manual) 86.0 H Lymphocytes % (Manual) 6.0 L Monocytes % (Manual) Eosinophils % (Manual) Basophils % (Manual) Nucleated RBC % Seg Neutrophils # Seg Neutrophils # Man 12.6 H Lymphocytes # (Manual) 0.9 L Monocytes # (Manual) Eosinophils # (Manual) PT INR Fibrinogen dRVVT Confirm Interp Factor V Activity POC ABG pH 7.486 H POC ABG pCO2 30.1 L POC ABG pO2 108 H Sodium 131 L Potassium 3.4 L Chloride 89.9 L Carbon Dioxide BUN 26 H Creatinine 2.6 H Glucose POC Glucose Lactic Acid Calcium 7.0 L Phosphorus Magnesium Direct Bilirubin AST ALT Alkaline Phosphatase Lactate Dehydrogenase Troponin T C-Reactive Protein Total Protein Albumin Prealbumin Triglycerides Cholesterol LDL Cholesterol Direct HDL Cholesterol Urine pH Urine WBC (Auto) Urine Creatinine Urine Total Protein Vancomycin Trough Rheumatoid Factor Complement C4 Miscellaneous Test Crossmatch 10/02/16 10/03/16 10/03/16 23:45 00:45 05:10 WBC 12.9 H RBC 2.77 L Hgb 7.6 L Hct 23.7 L MCV MCH 27 L MCHC RDW 19.7 H Plt Count 89 L Lymph % (Auto) [place] % (Auto) Lymph # [place] # Baso # Seg Neutrophils % Seg Neuts % (Manual) Lymphocytes % (Manual) 8.0 L Monocytes % (Manual) Eosinophils % (Manual) Basophils % (Manual) Nucleated RBC % Seg Neutrophils # 11.9 H Seg Neutrophils # Man Lymphocytes # (Manual) 1.0 L Monocytes # (Manual) Eosinophils # (Manual) PT INR Fibrinogen dRVVT Confirm Interp Factor V Activity POC ABG pH POC ABG pCO2 POC ABG pO2 Sodium Potassium Chloride Carbon Dioxide BUN Creatinine Glucose POC Glucose 55 L 199 H Lactic Acid Calcium Phosphorus Magnesium Direct Bilirubin AST ALT Alkaline Phosphatase Lactate Dehydrogenase Troponin T C-Reactive Protein Total Protein Albumin Prealbumin Triglycerides Cholesterol LDL Cholesterol Direct HDL Cholesterol Urine pH Urine WBC (Auto) Urine Creatinine Urine Total Protein Vancomycin Trough Rheumatoid Factor Complement C4 Miscellaneous Test Crossmatch 10/03/16 10/03/16 10/03/16 05:10 12:14 13:18 WBC RBC Hgb Hct MCV MCH MCHC RDW Plt Count Lymph % (Auto) [place] % (Auto) Lymph # [place] # Baso # Seg Neutrophils % Seg Neuts % (Manual) Lymphocytes % (Manual) Monocytes % (Manual) Eosinophils % (Manual) Basophils % (Manual) Nucleated RBC % Seg Neutrophils # Seg Neutrophils # Man Lymphocytes # (Manual) Monocytes # (Manual) Eosinophils # (Manual) PT INR Fibrinogen dRVVT Confirm Interp Factor V Activity POC ABG pH POC ABG pCO2 POC ABG pO2 Sodium 129 L Potassium 3.3 L Chloride 88.8 L Carbon Dioxide 20 L BUN 29 H Creatinine 2.8 H Glucose POC Glucose 68 L 127 H Lactic Acid Calcium 7.2 L Phosphorus Magnesium Direct Bilirubin AST ALT Alkaline Phosphatase Lactate Dehydrogenase Troponin T C-Reactive Protein Total Protein Albumin Prealbumin Triglycerides Cholesterol LDL Cholesterol Direct HDL Cholesterol Urine pH Urine WBC (Auto) Urine Creatinine Urine Total Protein Vancomycin Trough Rheumatoid Factor Complement C4 Miscellaneous Test Crossmatch 10/03/16 10/03/16 10/03/16 14:42 18:21 19:09 WBC RBC Hgb Hct MCV MCH MCHC RDW Plt Count Lymph % (Auto) [place] % (Auto) Lymph # [place] # Baso # Seg Neutrophils % Seg Neuts % (Manual) Lymphocytes % (Manual) Monocytes % (Manual) Eosinophils % (Manual) Basophils % (Manual) Nucleated RBC % Seg Neutrophils # Seg Neutrophils # Man Lymphocytes # (Manual) Monocytes # (Manual) Eosinophils # (Manual) PT INR Fibrinogen dRVVT Confirm Interp Factor V Activity POC ABG pH 7.499 H POC ABG pCO2 28.4 L POC ABG pO2 44 L Sodium Potassium Chloride Carbon Dioxide BUN Creatinine Glucose POC Glucose 64 L 205 H Lactic Acid Calcium Phosphorus Magnesium Direct Bilirubin AST ALT Alkaline Phosphatase Lactate Dehydrogenase Troponin T C-Reactive Protein Total Protein Albumin Prealbumin Triglycerides Cholesterol LDL Cholesterol Direct HDL Cholesterol Urine pH Urine WBC (Auto) Urine Creatinine Urine Total Protein Vancomycin Trough Rheumatoid Factor Complement C4 Miscellaneous Test Crossmatch 10/03/16 10/04/16 10/04/16 23:33 04:18 06:30 WBC RBC 2.54 L Hgb 7.1 L Hct 21.7 L MCV MCH MCHC RDW 19.5 H Plt Count 76 L Lymph % (Auto) [place] % (Auto) Lymph # [place] # Baso # Seg Neutrophils % Seg Neuts % (Manual) 88.0 H Lymphocytes % (Manual) 6.0 L Monocytes % (Manual) Eosinophils % (Manual) Basophils % (Manual) Nucleated RBC % Seg Neutrophils # Seg Neutrophils # Man 8.8 H Lymphocytes # (Manual) 0.6 L Monocytes # (Manual) Eosinophils # (Manual) PT INR Fibrinogen dRVVT Confirm Interp Factor V Activity POC ABG pH 7.461 H POC ABG pCO2 33.6 L POC ABG pO2 211 H Sodium Potassium Chloride Carbon Dioxide BUN Creatinine Glucose POC Glucose 136 H Lactic Acid Calcium Phosphorus Magnesium Direct Bilirubin AST ALT Alkaline Phosphatase Lactate Dehydrogenase Troponin T C-Reactive Protein Total Protein Albumin Prealbumin Triglycerides Cholesterol LDL Cholesterol Direct HDL Cholesterol Urine pH Urine WBC (Auto) Urine Creatinine Urine Total Protein Vancomycin Trough Rheumatoid Factor Complement C4 Miscellaneous Test Crossmatch 10/04/16 10/04/16 10/04/16 06:30 11:45 17:54 WBC RBC Hgb Hct MCV MCH MCHC RDW Plt Count Lymph % (Auto) [place] % (Auto) Lymph # [place] # Baso # Seg Neutrophils % Seg Neuts % (Manual) Lymphocytes % (Manual) Monocytes % (Manual) Eosinophils % (Manual) Basophils % (Manual) Nucleated RBC % Seg Neutrophils # Seg Neutrophils # Man Lymphocytes # (Manual) Monocytes # (Manual) Eosinophils # (Manual) PT INR Fibrinogen dRVVT Confirm Interp Factor V Activity POC ABG pH POC ABG pCO2 POC ABG pO2 Sodium 128 L Potassium Chloride 87.4 L Carbon Dioxide 20 L BUN 34 H Creatinine 2.9 H Glucose 127 H POC Glucose 158 H 160 H Lactic Acid Calcium 7.4 L Phosphorus Magnesium Direct Bilirubin AST ALT Alkaline Phosphatase Lactate Dehydrogenase Troponin T C-Reactive Protein Total Protein Albumin Prealbumin Triglycerides Cholesterol LDL Cholesterol Direct HDL Cholesterol Urine pH Urine WBC (Auto) Urine Creatinine Urine Total Protein Vancomycin Trough Rheumatoid Factor Complement C4 Miscellaneous Test Crossmatch 10/04/16 10/05/16 10/05/16 23:25 04:30 05:00 WBC RBC 2.64 L Hgb 7.5 L Hct 22.6 L MCV MCH MCHC RDW 19.3 H Plt Count 80 L Lymph % (Auto) [place] % (Auto) Lymph # [place] # Baso # Seg Neutrophils % Seg Neuts % (Manual) Lymphocytes % (Manual) 12.0 L Monocytes % (Manual) Eosinophils % (Manual) Basophils % (Manual) Nucleated RBC % Seg Neutrophils # Seg Neutrophils # Man Lymphocytes # (Manual) Monocytes # (Manual) Eosinophils # (Manual) PT INR Fibrinogen dRVVT Confirm Interp Factor V Activity POC ABG pH 7.475 H POC ABG pCO2 33.3 L POC ABG pO2 140 H Sodium Potassium Chloride Carbon Dioxide BUN Creatinine Glucose POC Glucose 141 H Lactic Acid Calcium Phosphorus Magnesium Direct Bilirubin AST ALT Alkaline Phosphatase Lactate Dehydrogenase Troponin T C-Reactive Protein Total Protein Albumin Prealbumin Triglycerides Cholesterol LDL Cholesterol Direct HDL Cholesterol Urine pH Urine WBC (Auto) Urine Creatinine Urine Total Protein Vancomycin Trough Rheumatoid Factor Complement C4 Miscellaneous Test Crossmatch 10/05/16 10/05/16 10/05/16 05:00 05:09 12:58 WBC RBC Hgb Hct MCV MCH MCHC RDW Plt Count Lymph % (Auto) [place] % (Auto) Lymph # [place] # Baso # Seg Neutrophils % Seg Neuts % (Manual) Lymphocytes % (Manual) Monocytes % (Manual) Eosinophils % (Manual) Basophils % (Manual) Nucleated RBC % Seg Neutrophils # Seg Neutrophils # Man Lymphocytes # (Manual) Monocytes # (Manual) Eosinophils # (Manual) PT INR Fibrinogen dRVVT Confirm Interp Factor V Activity POC ABG pH POC ABG pCO2 POC ABG pO2 Sodium 131 L Potassium Chloride 94.0 L Carbon Dioxide 20 L BUN 22 H Creatinine 2.0 H Glucose 123 H POC Glucose 166 H 179 H Lactic Acid Calcium 7.7 L Phosphorus 2.20 L D Magnesium Direct Bilirubin AST ALT Alkaline Phosphatase Lactate Dehydrogenase Troponin T C-Reactive Protein Total Protein Albumin Prealbumin Triglycerides Cholesterol LDL Cholesterol Direct HDL Cholesterol Urine pH Urine WBC (Auto) Urine Creatinine Urine Total Protein Vancomycin Trough Rheumatoid Factor Complement C4 Miscellaneous Test Crossmatch 10/05/16 10/05/16 10/05/16 15:50 18:53 23:12 WBC RBC Hgb Hct MCV MCH MCHC RDW Plt Count Lymph % (Auto) [place] % (Auto) Lymph # [place] # Baso # Seg Neutrophils % Seg Neuts % (Manual) Lymphocytes % (Manual) Monocytes % (Manual) Eosinophils % (Manual) Basophils % (Manual) Nucleated RBC % Seg Neutrophils # Seg Neutrophils # Man Lymphocytes # (Manual) Monocytes # (Manual) Eosinophils # (Manual) PT INR Fibrinogen dRVVT Confirm Interp Factor V Activity POC ABG pH POC ABG pCO2 POC ABG pO2 Sodium Potassium Chloride Carbon Dioxide BUN Creatinine Glucose POC Glucose 150 H 164 H Lactic Acid Calcium Phosphorus Magnesium Direct Bilirubin AST ALT Alkaline Phosphatase Lactate Dehydrogenase Troponin T C-Reactive Protein Total Protein Albumin Prealbumin Triglycerides Cholesterol LDL Cholesterol Direct HDL Cholesterol Urine pH Urine WBC (Auto) Urine Creatinine Urine Total Protein Vancomycin Trough Rheumatoid Factor Complement C4 Miscellaneous Test Crossmatch See Detail 10/06/16 10/06/16 10/06/16 03:50 03:50 04:53 WBC RBC 3.00 L Hgb 8.6 L Hct 25.8 L MCV MCH MCHC RDW 17.9 H Plt Count 65 L Lymph % (Auto) [place] % (Auto) Lymph # [place] # Baso # Seg Neutrophils % Seg Neuts % (Manual) 30.0 L Lymphocytes % (Manual) 5.0 L Monocytes % (Manual) Eosinophils % (Manual) Basophils % (Manual) Nucleated RBC % Seg Neutrophils # Seg Neutrophils # Man Lymphocytes # (Manual) 0.4 L Monocytes # (Manual) Eosinophils # (Manual) PT INR Fibrinogen dRVVT Confirm Interp Factor V Activity POC ABG pH 7.310 L POC ABG pCO2 49.0 H POC ABG pO2 Sodium 133 L Potassium Chloride 95.9 L Carbon Dioxide BUN 26 H Creatinine 2.0 H Glucose 116 H POC Glucose Lactic Acid Calcium 7.8 L Phosphorus Magnesium Direct Bilirubin AST ALT Alkaline Phosphatase Lactate Dehydrogenase Troponin T C-Reactive Protein Total Protein Albumin Prealbumin Triglycerides Cholesterol LDL Cholesterol Direct HDL Cholesterol Urine pH Urine WBC (Auto) Urine Creatinine Urine Total Protein Vancomycin Trough Rheumatoid Factor Complement C4 Miscellaneous Test Crossmatch 10/06/16 10/06/16 10/06/16 05:23 11:52 18:34 WBC RBC Hgb Hct MCV MCH MCHC RDW Plt Count Lymph % (Auto) [place] % (Auto) Lymph # [place] # Baso # Seg Neutrophils % Seg Neuts % (Manual) Lymphocytes % (Manual) Monocytes % (Manual) Eosinophils % (Manual) Basophils % (Manual) Nucleated RBC % Seg Neutrophils # Seg Neutrophils # Man Lymphocytes # (Manual) Monocytes # (Manual) Eosinophils # (Manual) PT INR Fibrinogen dRVVT Confirm Interp Factor V Activity POC ABG pH POC ABG pCO2 POC ABG pO2 Sodium Potassium Chloride Carbon Dioxide BUN Creatinine Glucose POC Glucose 126 H 116 H 129 H Lactic Acid Calcium Phosphorus Magnesium Direct Bilirubin AST ALT Alkaline Phosphatase Lactate Dehydrogenase Troponin T C-Reactive Protein Total Protein Albumin Prealbumin Triglycerides Cholesterol LDL Cholesterol Direct HDL Cholesterol Urine pH Urine WBC (Auto) Urine Creatinine Urine Total Protein Vancomycin Trough Rheumatoid Factor Complement C4 Miscellaneous Test Crossmatch 10/07/16 10/07/16 10/07/16 03:45 05:00 10:00 WBC 17.0 H RBC 2.68 L Hgb 7.3 L Hct 25.3 L MCV MCH 27 L MCHC 29 L RDW 19.6 H Plt Count 74 L Lymph % (Auto) [place] % (Auto) Lymph # [place] # Baso # Seg Neutrophils % Seg Neuts % (Manual) Lymphocytes % (Manual) 12.0 L Monocytes % (Manual) Eosinophils % (Manual) Basophils % (Manual) Nucleated RBC % 4.0 H Seg Neutrophils # Seg Neutrophils # Man 10.7 H Lymphocytes # (Manual) Monocytes # (Manual) Eosinophils # (Manual) PT INR Fibrinogen dRVVT Confirm Interp Factor V Activity POC ABG pH POC ABG pCO2 POC ABG pO2 Sodium 130 L Potassium 3.2 L Chloride 93.9 L Carbon Dioxide 20 L BUN 44 H Creatinine 2.7 H Glucose 129 H POC Glucose Lactic Acid Calcium 7.4 L Phosphorus Magnesium Direct Bilirubin AST ALT 6 L Alkaline Phosphatase 195 H Lactate Dehydrogenase Troponin T C-Reactive Protein Total Protein 4.9 L Albumin 1.0 L Prealbumin Triglycerides Cholesterol LDL Cholesterol Direct HDL Cholesterol Urine pH Urine WBC (Auto) Urine Creatinine Urine Total Protein Vancomycin Trough Rheumatoid Factor Complement C4 Miscellaneous Test Flexitest 1 H Crossmatch 10/07/16 10/07/16 10/07/16 10:00 11:24 18:10 WBC RBC Hgb Hct MCV MCH MCHC RDW Plt Count Lymph % (Auto) [place] % (Auto) Lymph # [place] # Baso # Seg Neutrophils % Seg Neuts % (Manual) Lymphocytes % (Manual) Monocytes % (Manual) Eosinophils % (Manual) Basophils % (Manual) Nucleated RBC % Seg Neutrophils # Seg Neutrophils # Man Lymphocytes # (Manual) Monocytes # (Manual) Eosinophils # (Manual) PT INR Fibrinogen dRVVT Confirm Interp Factor V Activity POC ABG pH POC ABG pCO2 POC ABG pO2 Sodium Potassium Chloride Carbon Dioxide BUN Creatinine Glucose POC Glucose 116 H 130 H Lactic Acid Calcium Phosphorus Magnesium Direct Bilirubin AST ALT Alkaline Phosphatase Lactate Dehydrogenase Troponin T C-Reactive Protein 19.40 H Total Protein Albumin Prealbumin Triglycerides Cholesterol LDL Cholesterol Direct HDL Cholesterol Urine pH Urine WBC (Auto) Urine Creatinine Urine Total Protein Vancomycin Trough Rheumatoid Factor Complement C4 Miscellaneous Test Crossmatch 10/07/16 10/08/16 10/08/16 18:30 00:00 04:00 WBC RBC Hgb Hct MCV MCH MCHC RDW Plt Count Lymph % (Auto) [place] % (Auto) Lymph # [place] # Baso # Seg Neutrophils % Seg Neuts % (Manual) Lymphocytes % (Manual) Monocytes % (Manual) Eosinophils % (Manual) Basophils % (Manual) Nucleated RBC % Seg Neutrophils # Seg Neutrophils # Man Lymphocytes # (Manual) Monocytes # (Manual) Eosinophils # (Manual) PT INR Fibrinogen dRVVT Confirm Interp Factor V Activity POC ABG pH POC ABG pCO2 POC ABG pO2 Sodium 132 L Potassium 3.3 L Chloride 93.6 L Carbon Dioxide 17 L BUN 59 H Creatinine 2.7 H Glucose 121 H POC Glucose 122 H Lactic Acid Calcium 7.6 L Phosphorus Magnesium Direct Bilirubin AST ALT Alkaline Phosphatase Lactate Dehydrogenase Troponin T C-Reactive Protein Total Protein Albumin Prealbumin Triglycerides Cholesterol LDL Cholesterol Direct HDL Cholesterol Urine pH Urine WBC (Auto) > 182.0 H Urine Creatinine Urine Total Protein Vancomycin Trough Rheumatoid Factor Complement C4 Miscellaneous Test Crossmatch 10/08/16 10/08/16 10/08/16 04:30 05:30 11:51 WBC RBC 5.15 H Hgb 14.4 H D Hct 44.5 H D MCV MCH MCHC RDW 19.5 H Plt Count 56 L Lymph % (Auto) [place] % (Auto) Lymph # [place] # Baso # Seg Neutrophils % Seg Neuts % (Manual) 24.0 L Lymphocytes % (Manual) 8.0 L Monocytes % (Manual) Eosinophils % (Manual) Basophils % (Manual) Nucleated RBC % 9.0 H Seg Neutrophils # Seg Neutrophils # Man Lymphocytes # (Manual) 0.7 L Monocytes # (Manual) Eosinophils # (Manual) PT INR Fibrinogen dRVVT Confirm Interp Factor V Activity POC ABG pH POC ABG pCO2 POC ABG pO2 Sodium Potassium Chloride Carbon Dioxide BUN Creatinine Glucose POC Glucose 125 H 150 H Lactic Acid Calcium Phosphorus Magnesium Direct Bilirubin AST ALT Alkaline Phosphatase Lactate Dehydrogenase Troponin T C-Reactive Protein Total Protein Albumin Prealbumin Triglycerides Cholesterol LDL Cholesterol Direct HDL Cholesterol Urine pH Urine WBC (Auto) Urine Creatinine Urine Total Protein Vancomycin Trough Rheumatoid Factor Complement C4 Miscellaneous Test Crossmatch 10/08/16 10/08/16 10/08/16 12:49 17:07 19:30 WBC RBC Hgb 7.1 L D Hct 22.4 L D MCV MCH MCHC RDW Plt Count Lymph % (Auto) [place] % (Auto) Lymph # [place] # Baso # Seg Neutrophils % Seg Neuts % (Manual) Lymphocytes % (Manual) Monocytes % (Manual) Eosinophils % (Manual) Basophils % (Manual) Nucleated RBC % Seg Neutrophils # Seg Neutrophils # Man Lymphocytes # (Manual) Monocytes # (Manual) Eosinophils # (Manual) PT INR Fibrinogen dRVVT Confirm Interp Factor V Activity POC ABG pH POC ABG pCO2 28.2 L POC ABG pO2 111 H Sodium Potassium Chloride Carbon Dioxide BUN Creatinine Glucose POC Glucose 145 H Lactic Acid Calcium Phosphorus Magnesium Direct Bilirubin AST ALT Alkaline Phosphatase Lactate Dehydrogenase Troponin T C-Reactive Protein Total Protein Albumin Prealbumin Triglycerides Cholesterol LDL Cholesterol Direct HDL Cholesterol Urine pH Urine WBC (Auto) Urine Creatinine Urine Total Protein Vancomycin Trough Rheumatoid Factor Complement C4 Miscellaneous Test Crossmatch 10/08/16 10/09/16 10/09/16 19:30 03:45 03:45 WBC 12.6 H RBC 2.36 L Hgb 6.7 L Hct 21.1 L MCV MCH MCHC RDW 19.5 H Plt Count 75 L Lymph % (Auto) [place] % (Auto) Lymph # [place] # Baso # Seg Neutrophils % Seg Neuts % (Manual) Lymphocytes % (Manual) Monocytes % (Manual) 10.0 H Eosinophils % (Manual) Basophils % (Manual) Nucleated RBC % 3.0 H Seg Neutrophils # Seg Neutrophils # Man Lymphocytes # (Manual) Monocytes # (Manual) 1.3 H Eosinophils # (Manual) PT 18.0 H INR 1.41 H Fibrinogen dRVVT Confirm Interp Factor V Activity POC ABG pH POC ABG pCO2 POC ABG pO2 Sodium 135 L Potassium Chloride Carbon Dioxide 17 L BUN 81 H Creatinine 3.2 H Glucose 109 H POC Glucose Lactic Acid Calcium 7.4 L Phosphorus 4.60 H D Magnesium Direct Bilirubin AST ALT Alkaline Phosphatase Lactate Dehydrogenase Troponin T C-Reactive Protein Total Protein Albumin Prealbumin Triglycerides Cholesterol LDL Cholesterol Direct HDL Cholesterol Urine pH Urine WBC (Auto) Urine Creatinine Urine Total Protein Vancomycin Trough Rheumatoid Factor Complement C4 Miscellaneous Test Crossmatch 10/09/16 10/09/16 10/09/16 03:45 05:14 07:20 WBC RBC Hgb Hct MCV MCH MCHC RDW Plt Count Lymph % (Auto) [place] % (Auto) Lymph # [place] # Baso # Seg Neutrophils % Seg Neuts % (Manual) Lymphocytes % (Manual) Monocytes % (Manual) Eosinophils % (Manual) Basophils % (Manual) Nucleated RBC % Seg Neutrophils # Seg Neutrophils # Man Lymphocytes # (Manual) Monocytes # (Manual) Eosinophils # (Manual) PT 19.0 H INR 1.51 H Fibrinogen dRVVT Confirm Interp Factor V Activity POC ABG pH POC ABG pCO2 POC ABG pO2 Sodium Potassium Chloride Carbon Dioxide BUN Creatinine Glucose POC Glucose 151 H Lactic Acid Calcium Phosphorus Magnesium Direct Bilirubin AST ALT Alkaline Phosphatase Lactate Dehydrogenase Troponin T C-Reactive Protein Total Protein Albumin Prealbumin Triglycerides Cholesterol LDL Cholesterol Direct HDL Cholesterol Urine pH Urine WBC (Auto) Urine Creatinine Urine Total Protein Vancomycin Trough Rheumatoid Factor Complement C4 Miscellaneous Test Crossmatch See Detail 10/09/16 10/09/16 10/09/16 11:46 16:20 16:43 WBC RBC Hgb 7.2 L Hct 22.2 L MCV MCH MCHC RDW Plt Count Lymph % (Auto) [place] % (Auto) Lymph # [place] # Baso # Seg Neutrophils % Seg Neuts % (Manual) Lymphocytes % (Manual) Monocytes % (Manual) Eosinophils % (Manual) Basophils % (Manual) Nucleated RBC % Seg Neutrophils # Seg Neutrophils # Man Lymphocytes # (Manual) Monocytes # (Manual) Eosinophils # (Manual) PT INR Fibrinogen dRVVT Confirm Interp Factor V Activity POC ABG pH POC ABG pCO2 POC ABG pO2 Sodium Potassium Chloride Carbon Dioxide BUN Creatinine Glucose POC Glucose 133 H 141 H Lactic Acid Calcium Phosphorus Magnesium Direct Bilirubin AST ALT Alkaline Phosphatase Lactate Dehydrogenase Troponin T C-Reactive Protein Total Protein Albumin Prealbumin Triglycerides Cholesterol LDL Cholesterol Direct HDL Cholesterol Urine pH Urine WBC (Auto) Urine Creatinine Urine Total Protein Vancomycin Trough Rheumatoid Factor Complement C4 Miscellaneous Test Crossmatch 10/10/16 10/10/16 10/10/16 05:00 05:00 11:19 WBC 18.5 H RBC 2.19 L Hgb 6.4 L Hct 19.6 L* MCV MCH MCHC RDW 19.3 H Plt Count 93 L Lymph % (Auto) [place] % (Auto) Lymph # [place] # Baso # Seg Neutrophils % Seg Neuts % (Manual) Lymphocytes % (Manual) 10.0 L Monocytes % (Manual) Eosinophils % (Manual) Basophils % (Manual) Nucleated RBC % 4.0 H Seg Neutrophils # Seg Neutrophils # Man 11.3 H Lymphocytes # (Manual) Monocytes # (Manual) Eosinophils # (Manual) PT INR Fibrinogen dRVVT Confirm Interp Factor V Activity POC ABG pH POC ABG pCO2 POC ABG pO2 Sodium Potassium 5.7 H D Chloride Carbon Dioxide 16 L BUN 94 H Creatinine 3.1 H Glucose 131 H POC Glucose 153 H Lactic Acid Calcium 8.2 L Phosphorus 5.10 H Magnesium 2.40 H Direct Bilirubin 0.3 H AST ALT < 5 L Alkaline Phosphatase 319 H Lactate Dehydrogenase Troponin T C-Reactive Protein Total Protein 5.1 L Albumin 1.0 L Prealbumin Triglycerides Cholesterol LDL Cholesterol Direct HDL Cholesterol Urine pH Urine WBC (Auto) Urine Creatinine Urine Total Protein Vancomycin Trough Rheumatoid Factor Complement C4 Miscellaneous Test Crossmatch 10/10/16 10/10/16 10/11/16 17:50 23:30 04:15 WBC RBC Hgb Hct MCV MCH MCHC RDW Plt Count Lymph % (Auto) [place] % (Auto) Lymph # [place] # Baso # Seg Neutrophils % Seg Neuts % (Manual) Lymphocytes % (Manual) Monocytes % (Manual) Eosinophils % (Manual) Basophils % (Manual) Nucleated RBC % Seg Neutrophils # Seg Neutrophils # Man Lymphocytes # (Manual) Monocytes # (Manual) Eosinophils # (Manual) PT INR Fibrinogen dRVVT Confirm Interp Factor V Activity POC ABG pH POC ABG pCO2 POC ABG pO2 Sodium Potassium Chloride 96.4 L Carbon Dioxide 21 L BUN 57 H Creatinine 2.1 H Glucose 151 H POC Glucose 146 H 141 H Lactic Acid Calcium 8.3 L Phosphorus Magnesium Direct Bilirubin AST ALT Alkaline Phosphatase Lactate Dehydrogenase Troponin T C-Reactive Protein Total Protein Albumin Prealbumin Triglycerides Cholesterol LDL Cholesterol Direct HDL Cholesterol Urine pH Urine WBC (Auto) Urine Creatinine Urine Total Protein Vancomycin Trough Rheumatoid Factor Complement C4 Miscellaneous Test Crossmatch 10/11/16 10/11/16 10/11/16 04:15 04:15 05:30 WBC 28.3 H RBC 3.12 L Hgb 9.3 L Hct 28.7 L D MCV MCH MCHC RDW 17.7 H Plt Count 128 L Lymph % (Auto) [place] % (Auto) Lymph # [place] # Baso # Seg Neutrophils % Seg Neuts % (Manual) Lymphocytes % (Manual) Monocytes % (Manual) Eosinophils % (Manual) Basophils % (Manual) Nucleated RBC % Seg Neutrophils # Seg Neutrophils # Man Lymphocytes # (Manual) Monocytes # (Manual) Eosinophils # (Manual) PT INR Fibrinogen dRVVT Confirm Interp Factor V Activity POC ABG pH POC ABG pCO2 POC ABG pO2 Sodium Potassium Chloride Carbon Dioxide BUN Creatinine Glucose POC Glucose 167 H Lactic Acid Calcium Phosphorus Magnesium Direct Bilirubin AST ALT Alkaline Phosphatase Lactate Dehydrogenase Troponin T C-Reactive Protein 15.80 H Total Protein Albumin Prealbumin Triglycerides Cholesterol LDL Cholesterol Direct HDL Cholesterol Urine pH Urine WBC (Auto) Urine Creatinine Urine Total Protein Vancomycin Trough Rheumatoid Factor Complement C4 Miscellaneous Test Crossmatch 10/11/16 10/11/16 10/11/16 11:40 15:49 23:57 WBC RBC Hgb Hct MCV MCH MCHC RDW Plt Count Lymph % (Auto) [place] % (Auto) Lymph # [place] # Baso # Seg Neutrophils % Seg Neuts % (Manual) Lymphocytes % (Manual) Monocytes % (Manual) Eosinophils % (Manual) Basophils % (Manual) Nucleated RBC % Seg Neutrophils # Seg Neutrophils # Man Lymphocytes # (Manual) Monocytes # (Manual) Eosinophils # (Manual) PT INR Fibrinogen dRVVT Confirm Interp Factor V Activity POC ABG pH POC ABG pCO2 POC ABG pO2 Sodium Potassium Chloride Carbon Dioxide BUN Creatinine Glucose POC Glucose 139 H 168 H 161 H Lactic Acid Calcium Phosphorus Magnesium Direct Bilirubin AST ALT Alkaline Phosphatase Lactate Dehydrogenase Troponin T C-Reactive Protein Total Protein Albumin Prealbumin Triglycerides Cholesterol LDL Cholesterol Direct HDL Cholesterol Urine pH Urine WBC (Auto) Urine Creatinine Urine Total Protein Vancomycin Trough Rheumatoid Factor Complement C4 Miscellaneous Test Crossmatch 10/12/16 10/12/16 10/12/16 04:40 04:40 05:44 WBC 22.5 H RBC 2.88 L Hgb 8.8 L Hct 26.8 L MCV MCH MCHC RDW 17.8 H Plt Count Lymph % (Auto) [place] % (Auto) Lymph # [place] # Baso # Seg Neutrophils % Seg Neuts % (Manual) Lymphocytes % (Manual) Monocytes % (Manual) Eosinophils % (Manual) Basophils % (Manual) Nucleated RBC % Seg Neutrophils # Seg Neutrophils # Man Lymphocytes # (Manual) Monocytes # (Manual) Eosinophils # (Manual) PT INR Fibrinogen dRVVT Confirm Interp Factor V Activity POC ABG pH POC ABG pCO2 POC ABG pO2 Sodium 134 L Potassium Chloride 93.0 L Carbon Dioxide BUN 74 H Creatinine 2.5 H Glucose 137 H POC Glucose 158 H Lactic Acid Calcium 8.2 L Phosphorus Magnesium Direct Bilirubin AST ALT Alkaline Phosphatase Lactate Dehydrogenase Troponin T C-Reactive Protein Total Protein Albumin Prealbumin Triglycerides Cholesterol LDL Cholesterol Direct HDL Cholesterol Urine pH Urine WBC (Auto) Urine Creatinine Urine Total Protein Vancomycin Trough Rheumatoid Factor Complement C4 Miscellaneous Test Crossmatch 10/12/16 10/12/16 10/12/16 12:27 18:18 23:46 WBC RBC Hgb Hct MCV MCH MCHC RDW Plt Count Lymph % (Auto) [place] % (Auto) Lymph # [place] # Baso # Seg Neutrophils % Seg Neuts % (Manual) Lymphocytes % (Manual) Monocytes % (Manual) Eosinophils % (Manual) Basophils % (Manual) Nucleated RBC % Seg Neutrophils # Seg Neutrophils # Man Lymphocytes # (Manual) Monocytes # (Manual) Eosinophils # (Manual) PT INR Fibrinogen dRVVT Confirm Interp Factor V Activity POC ABG pH POC ABG pCO2 POC ABG pO2 Sodium Potassium Chloride Carbon Dioxide BUN Creatinine Glucose POC Glucose 153 H 140 H 150 H Lactic Acid Calcium Phosphorus Magnesium Direct Bilirubin AST ALT Alkaline Phosphatase Lactate Dehydrogenase Troponin T C-Reactive Protein Total Protein Albumin Prealbumin Triglycerides Cholesterol LDL Cholesterol Direct HDL Cholesterol Urine pH Urine WBC (Auto) Urine Creatinine Urine Total Protein Vancomycin Trough Rheumatoid Factor Complement C4 Miscellaneous Test Crossmatch 10/13/16 10/13/16 10/13/16 06:22 09:20 12:29 WBC RBC Hgb Hct MCV MCH MCHC RDW Plt Count Lymph % (Auto) [place] % (Auto) Lymph # [place] # Baso # Seg Neutrophils % Seg Neuts % (Manual) Lymphocytes % (Manual) Monocytes % (Manual) Eosinophils % (Manual) Basophils % (Manual) Nucleated RBC % Seg Neutrophils # Seg Neutrophils # Man Lymphocytes # (Manual) Monocytes # (Manual) Eosinophils # (Manual) PT INR Fibrinogen dRVVT Confirm Interp Factor V Activity POC ABG pH POC ABG pCO2 POC ABG pO2 Sodium Potassium Chloride Carbon Dioxide BUN Creatinine Glucose POC Glucose 165 H 193 H Lactic Acid Calcium Phosphorus Magnesium Direct Bilirubin AST ALT Alkaline Phosphatase Lactate Dehydrogenase Troponin T C-Reactive Protein Total Protein Albumin Prealbumin Triglycerides Cholesterol LDL Cholesterol Direct HDL Cholesterol Urine pH Urine WBC (Auto) Urine Creatinine Urine Total Protein Vancomycin Trough Rheumatoid Factor Complement C4 Miscellaneous Test Flexitest 1 H Crossmatch 10/13/16 10/13/16 10/13/16 18:09 Unknown Unknown WBC 23.4 H RBC 2.83 L Hgb 8.7 L Hct 26.1 L MCV MCH MCHC RDW 18.1 H Plt Count Lymph % (Auto) [place] % (Auto) Lymph # [place] # Baso # Seg Neutrophils % Seg Neuts % (Manual) Lymphocytes % (Manual) Monocytes % (Manual) Eosinophils % (Manual) Basophils % (Manual) Nucleated RBC % Seg Neutrophils # Seg Neutrophils # Man Lymphocytes # (Manual) Monocytes # (Manual) Eosinophils # (Manual) PT INR Fibrinogen dRVVT Confirm Interp Factor V Activity POC ABG pH POC ABG pCO2 POC ABG pO2 Sodium Potassium Chloride 95.8 L Carbon Dioxide BUN 82 H Creatinine 2.6 H Glucose 152 H POC Glucose 166 H Lactic Acid Calcium Phosphorus Magnesium Direct Bilirubin AST ALT Alkaline Phosphatase Lactate Dehydrogenase Troponin T C-Reactive Protein Total Protein Albumin Prealbumin Triglycerides Cholesterol LDL Cholesterol Direct HDL Cholesterol Urine pH Urine WBC (Auto) Urine Creatinine Urine Total Protein Vancomycin Trough Rheumatoid Factor Complement C4 Miscellaneous Test Crossmatch 0810/14/16 10/14/16 05:38 06:35 08:10 WBC 20.7 H RBC 2.81 L Hgb 8.4 L Hct 27.2 L MCV MCH MCHC RDW 19.4 H Plt Count Lymph % (Auto) [place] % (Auto) Lymph # [place] # Baso # Seg Neutrophils % Seg Neuts % (Manual) Lymphocytes % (Manual) Monocytes % (Manual) Eosinophils % (Manual) Basophils % (Manual) Nucleated RBC % Seg Neutrophils # Seg Neutrophils # Man Lymphocytes # (Manual) Monocytes # (Manual) Eosinophils # (Manual) PT INR Fibrinogen dRVVT Confirm Interp Factor V Activity POC ABG pH POC ABG pCO2 POC ABG pO2 Sodium Potassium Chloride Carbon Dioxide BUN 58 H Creatinine 1.9 H Glucose 169 H POC Glucose 195 H Lactic Acid Calcium Phosphorus Magnesium Direct Bilirubin AST ALT Alkaline Phosphatase Lactate Dehydrogenase Troponin T C-Reactive Protein Total Protein Albumin Prealbumin Triglycerides Cholesterol LDL Cholesterol Direct HDL Cholesterol Urine pH Urine WBC (Auto) Urine Creatinine Urine Total Protein Vancomycin Trough Rheumatoid Factor Complement C4 Miscellaneous Test Crossmatch 10/14/16 10/14/16 10/14/16 11:44 17:13 23:28 WBC RBC Hgb Hct MCV MCH MCHC RDW Plt Count Lymph % (Auto) [place] % (Auto) Lymph # [place] # Baso # Seg Neutrophils % Seg Neuts % (Manual) Lymphocytes % (Manual) Monocytes % (Manual) Eosinophils % (Manual) Basophils % (Manual) Nucleated RBC % Seg Neutrophils # Seg Neutrophils # Man Lymphocytes # (Manual) Monocytes # (Manual) Eosinophils # (Manual) PT INR Fibrinogen dRVVT Confirm Interp Factor V Activity POC ABG pH POC ABG pCO2 POC ABG pO2 Sodium Potassium Chloride Carbon Dioxide BUN Creatinine Glucose POC Glucose 174 H 121 H 151 H Lactic Acid Calcium Phosphorus Magnesium Direct Bilirubin AST ALT Alkaline Phosphatase Lactate Dehydrogenase Troponin T C-Reactive Protein Total Protein Albumin Prealbumin Triglycerides Cholesterol LDL Cholesterol Direct HDL Cholesterol Urine pH Urine WBC (Auto) Urine Creatinine Urine Total Protein Vancomycin Trough Rheumatoid Factor Complement C4 Miscellaneous Test Crossmatch 10/15/16 10/15/16 10/15/16 05:06 12:26 17:48 WBC RBC Hgb Hct MCV MCH MCHC RDW Plt Count Lymph % (Auto) [place] % (Auto) Lymph # [place] # Baso # Seg Neutrophils % Seg Neuts % (Manual) Lymphocytes % (Manual) Monocytes % (Manual) Eosinophils % (Manual) Basophils % (Manual) Nucleated RBC % Seg Neutrophils # Seg Neutrophils # Man Lymphocytes # (Manual) Monocytes # (Manual) Eosinophils # (Manual) PT INR Fibrinogen dRVVT Confirm Interp Factor V Activity POC ABG pH POC ABG pCO2 POC ABG pO2 Sodium Potassium Chloride Carbon Dioxide BUN Creatinine Glucose POC Glucose 151 H 149 H 153 H Lactic Acid Calcium Phosphorus Magnesium Direct Bilirubin AST ALT Alkaline Phosphatase Lactate Dehydrogenase Troponin T C-Reactive Protein Total Protein Albumin Prealbumin Triglycerides Cholesterol LDL Cholesterol Direct HDL Cholesterol Urine pH Urine WBC (Auto) Urine Creatinine Urine Total Protein Vancomycin Trough Rheumatoid Factor Complement C4 Miscellaneous Test Crossmatch 10/15/16 10/15/16 10/16/16 Unknown Unknown 00:02 WBC 23.4 H RBC 2.78 L Hgb 8.5 L Hct 25.7 L MCV MCH MCHC RDW 18.7 H Plt Count Lymph % (Auto) [place] % (Auto) Lymph # [place] # Baso # Seg Neutrophils % Seg Neuts % (Manual) Lymphocytes % (Manual) Monocytes % (Manual) Eosinophils % (Manual) Basophils % (Manual) Nucleated RBC % Seg Neutrophils # Seg Neutrophils # Man Lymphocytes # (Manual) Monocytes # (Manual) Eosinophils # (Manual) PT INR Fibrinogen dRVVT Confirm Interp Factor V Activity POC ABG pH POC ABG pCO2 POC ABG pO2 Sodium Potassium Chloride Carbon Dioxide BUN 73 H Creatinine 2.3 H Glucose 120 H POC Glucose 137 H Lactic Acid Calcium Phosphorus Magnesium Direct Bilirubin AST ALT Alkaline Phosphatase Lactate Dehydrogenase Troponin T C-Reactive Protein Total Protein Albumin Prealbumin Triglycerides Cholesterol LDL Cholesterol Direct HDL Cholesterol Urine pH Urine WBC (Auto) Urine Creatinine Urine Total Protein Vancomycin Trough Rheumatoid Factor Complement C4 Miscellaneous Test Crossmatch 10/16/16 10/16/16 10/16/16 05:44 06:25 06:25 WBC 22.5 H RBC 2.76 L Hgb 8.3 L Hct 25.2 L MCV MCH MCHC RDW 18.3 H Plt Count Lymph % (Auto) [place] % (Auto) Lymph # [place] # Baso # Seg Neutrophils % Seg Neuts % (Manual) Lymphocytes % (Manual) Monocytes % (Manual) Eosinophils % (Manual) Basophils % (Manual) Nucleated RBC % Seg Neutrophils # Seg Neutrophils # Man Lymphocytes # (Manual) Monocytes # (Manual) Eosinophils # (Manual) PT INR Fibrinogen dRVVT Confirm Interp Factor V Activity POC ABG pH POC ABG pCO2 POC ABG pO2 Sodium Potassium Chloride Carbon Dioxide BUN 92 H Creatinine 3.0 H Glucose 138 H POC Glucose 110 H Lactic Acid Calcium Phosphorus Magnesium Direct Bilirubin AST ALT Alkaline Phosphatase Lactate Dehydrogenase Troponin T C-Reactive Protein Total Protein Albumin Prealbumin Triglycerides Cholesterol LDL Cholesterol Direct HDL Cholesterol Urine pH Urine WBC (Auto) Urine Creatinine Urine Total Protein Vancomycin Trough Rheumatoid Factor Complement C4 Miscellaneous Test Crossmatch 10/16/16 10/16/16 10/16/16 11:27 11:48 17:36 WBC RBC Hgb Hct MCV MCH MCHC RDW Plt Count Lymph % (Auto) [place] % (Auto) Lymph # [place] # Baso # Seg Neutrophils % Seg Neuts % (Manual) Lymphocytes % (Manual) Monocytes % (Manual) Eosinophils % (Manual) Basophils % (Manual) Nucleated RBC % Seg Neutrophils # Seg Neutrophils # Man Lymphocytes # (Manual) Monocytes # (Manual) Eosinophils # (Manual) PT INR Fibrinogen dRVVT Confirm Interp Factor V Activity POC ABG pH 7.582 H POC ABG pCO2 27.4 L POC ABG pO2 110 H Sodium Potassium Chloride Carbon Dioxide BUN Creatinine Glucose POC Glucose 121 H 133 H Lactic Acid Calcium Phosphorus Magnesium Direct Bilirubin AST ALT Alkaline Phosphatase Lactate Dehydrogenase Troponin T C-Reactive Protein Total Protein Albumin Prealbumin Triglycerides Cholesterol LDL Cholesterol Direct HDL Cholesterol Urine pH Urine WBC (Auto) Urine Creatinine Urine Total Protein Vancomycin Trough Rheumatoid Factor Complement C4 Miscellaneous Test Crossmatch 10/16/16 10/17/16 10/17/16 20:48 04:24 04:24 WBC 21.4 H RBC 2.72 L Hgb 8.0 L Hct 25.2 L MCV MCH MCHC RDW 18.0 H Plt Count Lymph % (Auto) [place] % (Auto) Lymph # [place] # Baso # Seg Neutrophils % Seg Neuts % (Manual) Lymphocytes % (Manual) Monocytes % (Manual) Eosinophils % (Manual) Basophils % (Manual) Nucleated RBC % Seg Neutrophils # Seg Neutrophils # Man Lymphocytes # (Manual) Monocytes # (Manual) Eosinophils # (Manual) PT INR Fibrinogen dRVVT Confirm Interp Factor V Activity POC ABG pH 7.561 H POC ABG pCO2 24.4 L POC ABG pO2 77 L Sodium 148 H Potassium Chloride Carbon Dioxide BUN 104 H Creatinine 3.0 H Glucose 149 H POC Glucose Lactic Acid Calcium Phosphorus Magnesium Direct Bilirubin AST ALT Alkaline Phosphatase 138 H Lactate Dehydrogenase Troponin T C-Reactive Protein Total Protein 6.2 L Albumin 1.5 L Prealbumin Triglycerides Cholesterol LDL Cholesterol Direct HDL Cholesterol Urine pH Urine WBC (Auto) Urine Creatinine Urine Total Protein Vancomycin Trough Rheumatoid Factor Complement C4 Miscellaneous Test Crossmatch 10/17/16 10/17/16 10/17/16 06:02 12:17 17:14 WBC RBC Hgb Hct MCV MCH MCHC RDW Plt Count Lymph % (Auto) [place] % (Auto) Lymph # [place] # Baso # Seg Neutrophils % Seg Neuts % (Manual) Lymphocytes % (Manual) Monocytes % (Manual) Eosinophils % (Manual) Basophils % (Manual) Nucleated RBC % Seg Neutrophils # Seg Neutrophils # Man Lymphocytes # (Manual) Monocytes # (Manual) Eosinophils # (Manual) PT INR Fibrinogen dRVVT Confirm Interp Factor V Activity POC ABG pH POC ABG pCO2 POC ABG pO2 Sodium Potassium Chloride Carbon Dioxide BUN Creatinine Glucose POC Glucose 170 H 167 H 126 H Lactic Acid Calcium Phosphorus Magnesium Direct Bilirubin AST ALT Alkaline Phosphatase Lactate Dehydrogenase Troponin T C-Reactive Protein Total Protein Albumin Prealbumin Triglycerides Cholesterol LDL Cholesterol Direct HDL Cholesterol Urine pH Urine WBC (Auto) Urine Creatinine Urine Total Protein Vancomycin Trough Rheumatoid Factor Complement C4 Miscellaneous Test Crossmatch 10/17/16 10/18/16 10/18/16 23:17 04:00 04:00 WBC 20.7 H RBC 2.47 L Hgb 7.4 L Hct 22.9 L MCV MCH MCHC RDW 17.5 H Plt Count Lymph % (Auto) [place] % (Auto) Lymph # [place] # Baso # Seg Neutrophils % Seg Neuts % (Manual) Lymphocytes % (Manual) Monocytes % (Manual) Eosinophils % (Manual) Basophils % (Manual) Nucleated RBC % Seg Neutrophils # Seg Neutrophils # Man Lymphocytes # (Manual) Monocytes # (Manual) Eosinophils # (Manual) PT INR Fibrinogen dRVVT Confirm Interp Factor V Activity POC ABG pH POC ABG pCO2 POC ABG pO2 Sodium 149 H Potassium Chloride 107.9 H Carbon Dioxide 20 L BUN 117 H Creatinine 3.2 H Glucose 119 H POC Glucose 121 H Lactic Acid Calcium Phosphorus Magnesium Direct Bilirubin AST ALT Alkaline Phosphatase Lactate Dehydrogenase Troponin T C-Reactive Protein Total Protein Albumin Prealbumin Triglycerides Cholesterol LDL Cholesterol Direct HDL Cholesterol Urine pH Urine WBC (Auto) Urine Creatinine Urine Total Protein Vancomycin Trough Rheumatoid Factor Complement C4 Miscellaneous Test Crossmatch 10/18/16 10/18/1610/18/17 05:23 10:46 17:30 WBC RBC Hgb Hct MCV MCH MCHC RDW Plt Count Lymph % (Auto) [place] % (Auto) Lymph # [place] # Baso # Seg Neutrophils % Seg Neuts % (Manual) Lymphocytes % (Manual) Monocytes % (Manual) Eosinophils % (Manual) Basophils % (Manual) Nucleated RBC % Seg Neutrophils # Seg Neutrophils # Man Lymphocytes # (Manual) Monocytes # (Manual) Eosinophils # (Manual) PT INR Fibrinogen dRVVT Confirm Interp Factor V Activity POC ABG pH POC ABG pCO2 POC ABG pO2 Sodium Potassium Chloride Carbon Dioxide BUN Creatinine Glucose POC Glucose 119 H 155 H 124 H Lactic Acid Calcium Phosphorus Magnesium Direct Bilirubin AST ALT Alkaline Phosphatase Lactate Dehydrogenase Troponin T C-Reactive Protein Total Protein Albumin Prealbumin Triglycerides Cholesterol LDL Cholesterol Direct HDL Cholesterol Urine pH Urine WBC (Auto) Urine Creatinine Urine Total Protein Vancomycin Trough Rheumatoid Factor Complement C4 Miscellaneous Test Crossmatch 10/19/16 10/19/16 10/19/16 04:00 04:00 05:25 WBC 17.4 H RBC 2.54 L Hgb 7.7 L Hct 23.6 L MCV MCH MCHC RDW 17.3 H Plt Count Lymph % (Auto) [place] % (Auto) Lymph # [place] # Baso # Seg Neutrophils % Seg Neuts % (Manual) Lymphocytes % (Manual) Monocytes % (Manual) Eosinophils % (Manual) Basophils % (Manual) Nucleated RBC % Seg Neutrophils # Seg Neutrophils # Man Lymphocytes # (Manual) Monocytes # (Manual) Eosinophils # (Manual) PT INR Fibrinogen dRVVT Confirm Interp Factor V Activity POC ABG pH POC ABG pCO2 POC ABG pO2 Sodium Potassium Chloride Carbon Dioxide BUN 72 H Creatinine 2.1 H Glucose 116 H POC Glucose 119 H Lactic Acid Calcium Phosphorus Magnesium Direct Bilirubin AST ALT Alkaline Phosphatase Lactate Dehydrogenase Troponin T C-Reactive Protein Total Protein Albumin Prealbumin Triglycerides Cholesterol LDL Cholesterol Direct HDL Cholesterol Urine pH Urine WBC (Auto) Urine Creatinine Urine Total Protein Vancomycin Trough Rheumatoid Factor Complement C4 Miscellaneous Test Crossmatch 10/19/16 10/19/16 10/20/16 11:46 23:59 06:00 WBC RBC Hgb Hct MCV MCH MCHC RDW Plt Count Lymph % (Auto) [place] % (Auto) Lymph # [place] # Baso # Seg Neutrophils % Seg Neuts % (Manual) Lymphocytes % (Manual) Monocytes % (Manual) Eosinophils % (Manual) Basophils % (Manual) Nucleated RBC % Seg Neutrophils # Seg Neutrophils # Man Lymphocytes # (Manual) Monocytes # (Manual) Eosinophils # (Manual) PT INR Fibrinogen dRVVT Confirm Interp Factor V Activity POC ABG pH POC ABG pCO2 POC ABG pO2 Sodium Potassium Chloride Carbon Dioxide 17 L BUN 94 H Creatinine 2.7 H Glucose POC Glucose 116 H 117 H Lactic Acid Calcium Phosphorus Magnesium Direct Bilirubin AST ALT Alkaline Phosphatase Lactate Dehydrogenase Troponin T C-Reactive Protein Total Protein Albumin Prealbumin Triglycerides Cholesterol LDL Cholesterol Direct HDL Cholesterol Urine pH Urine WBC (Auto) Urine Creatinine Urine Total Protein Vancomycin Trough Rheumatoid Factor Complement C4 Miscellaneous Test Crossmatch 10/20/16 10/20/16 10/20/16 06:00 11:49 16:00 WBC 19.7 H RBC 2.51 L Hgb 7.7 L Hct 23.5 L MCV MCH MCHC RDW 17.5 H Plt Count Lymph % (Auto) [place] % (Auto) Lymph # [place] # Baso # Seg Neutrophils % Seg Neuts % (Manual) Lymphocytes % (Manual) Monocytes % (Manual) Eosinophils % (Manual) Basophils % (Manual) Nucleated RBC % Seg Neutrophils # Seg Neutrophils # Man Lymphocytes # (Manual) Monocytes # (Manual) Eosinophils # (Manual) PT INR Fibrinogen dRVVT Confirm Interp Factor V Activity POC ABG pH POC ABG pCO2 POC ABG pO2 Sodium Potassium Chloride Carbon Dioxide BUN Creatinine Glucose POC Glucose 117 H Lactic Acid Calcium Phosphorus Magnesium Direct Bilirubin AST ALT Alkaline Phosphatase Lactate Dehydrogenase Troponin T C-Reactive Protein Total Protein Albumin Prealbumin Triglycerides Cholesterol LDL Cholesterol Direct HDL Cholesterol Urine pH Urine WBC (Auto) Urine Creatinine Urine Total Protein Vancomycin Trough Rheumatoid Factor Complement C4 Miscellaneous Test Flexitest 1 H Crossmatch 10/20/16 10/20/16 10/21/16 18:36 23:39 04:00 WBC RBC Hgb Hct MCV MCH MCHC RDW Plt Count Lymph % (Auto) [place] % (Auto) Lymph # [place] # Baso # Seg Neutrophils % Seg Neuts % (Manual) Lymphocytes % (Manual) Monocytes % (Manual) Eosinophils % (Manual) Basophils % (Manual) Nucleated RBC % Seg Neutrophils # Seg Neutrophils # Man Lymphocytes # (Manual) Monocytes # (Manual) Eosinophils # (Manual) PT INR Fibrinogen dRVVT Confirm Interp Factor V Activity POC ABG pH POC ABG pCO2 POC ABG pO2 Sodium Potassium 5.4 H D Chloride Carbon Dioxide 15 L BUN 110 H Creatinine 3.0 H Glucose POC Glucose 127 H 114 H Lactic Acid Calcium Phosphorus Magnesium Direct Bilirubin AST ALT Alkaline Phosphatase Lactate Dehydrogenase Troponin T C-Reactive Protein Total Protein Albumin Prealbumin Triglycerides Cholesterol LDL Cholesterol Direct HDL Cholesterol Urine pH Urine WBC (Auto) Urine Creatinine Urine Total Protein Vancomycin Trough Rheumatoid Factor Complement C4 Miscellaneous Test Crossmatch 10/21/16 10/21/16 10/22/16 05:54 23:46 05:18 WBC RBC Hgb Hct MCV MCH MCHC RDW Plt Count Lymph % (Auto) [place] % (Auto) Lymph # [place] # Baso # Seg Neutrophils % Seg Neuts % (Manual) Lymphocytes % (Manual) Monocytes % (Manual) Eosinophils % (Manual) Basophils % (Manual) Nucleated RBC % Seg Neutrophils # Seg Neutrophils # Man Lymphocytes # (Manual) Monocytes # (Manual) Eosinophils # (Manual) PT INR Fibrinogen dRVVT Confirm Interp Factor V Activity POC ABG pH POC ABG pCO2 POC ABG pO2 Sodium Potassium Chloride Carbon Dioxide BUN Creatinine Glucose POC Glucose 119 H 108 H 109 H Lactic Acid Calcium Phosphorus Magnesium Direct Bilirubin AST ALT Alkaline Phosphatase Lactate Dehydrogenase Troponin T C-Reactive Protein Total Protein Albumin Prealbumin Triglycerides Cholesterol LDL Cholesterol Direct HDL Cholesterol Urine pH Urine WBC (Auto) Urine Creatinine Urine Total Protein Vancomycin Trough Rheumatoid Factor Complement C4 Miscellaneous Test Crossmatch 10/22/16 10/22/16 10/22/16 06:40 06:40 06:40 WBC 14.0 H RBC 2.03 L Hgb 7.0 L Hct 20.5 L MCV 98 H MCH 34 H MCHC 35 H RDW 17.8 H Plt Count Lymph % (Auto) [place] % (Auto) 9.9 H Lymph # [place] # 1.4 H Baso # 0.2 H Seg Neutrophils % 72.0 H Seg Neuts % (Manual) Lymphocytes % (Manual) Monocytes % (Manual) Eosinophils % (Manual) Basophils % (Manual) Nucleated RBC % Seg Neutrophils # 10.0 H Seg Neutrophils # Man Lymphocytes # (Manual) Monocytes # (Manual) Eosinophils # (Manual) PT INR Fibrinogen dRVVT Confirm Interp Factor V Activity POC ABG pH POC ABG pCO2 POC ABG pO2 Sodium 130 L D Potassium Chloride 92.4 L Carbon Dioxide 20 L BUN 50 H Creatinine 1.6 H Glucose 589 H* POC Glucose Lactic Acid Calcium 7.8 L D Phosphorus Magnesium 1.60 L Direct Bilirubin AST ALT Alkaline Phosphatase Lactate Dehydrogenase Troponin T C-Reactive Protein Total Protein Albumin Prealbumin Triglycerides Cholesterol LDL Cholesterol Direct HDL Cholesterol Urine pH Urine WBC (Auto) Urine Creatinine Urine Total Protein Vancomycin Trough Rheumatoid Factor Complement C4 Miscellaneous Test Crossmatch 10/22/16 10/22/16 10/22/16 11:39 16:44 23:36 WBC RBC Hgb Hct MCV MCH MCHC RDW Plt Count Lymph % (Auto) [place] % (Auto) Lymph # [place] # Baso # Seg Neutrophils % Seg Neuts % (Manual) Lymphocytes % (Manual) Monocytes % (Manual) Eosinophils % (Manual) Basophils % (Manual) Nucleated RBC % Seg Neutrophils # Seg Neutrophils # Man Lymphocytes # (Manual) Monocytes # (Manual) Eosinophils # (Manual) PT INR Fibrinogen dRVVT Confirm Interp Factor V Activity POC ABG pH POC ABG pCO2 POC ABG pO2 Sodium Potassium Chloride Carbon Dioxide BUN Creatinine Glucose POC Glucose 142 H 163 H 123 H Lactic Acid Calcium Phosphorus Magnesium Direct Bilirubin AST ALT Alkaline Phosphatase Lactate Dehydrogenase Troponin T C-Reactive Protein Total Protein Albumin Prealbumin Triglycerides Cholesterol LDL Cholesterol Direct HDL Cholesterol Urine pH Urine WBC (Auto) Urine Creatinine Urine Total Protein Vancomycin Trough Rheumatoid Factor Complement C4 Miscellaneous Test Crossmatch 10/23/16 10/23/16 10/23/16 04:58 06:00 12:12 WBC RBC Hgb Hct MCV MCH MCHC RDW Plt Count Lymph % (Auto) [place] % (Auto) Lymph # [place] # Baso # Seg Neutrophils % Seg Neuts % (Manual) Lymphocytes % (Manual) Monocytes % (Manual) Eosinophils % (Manual) Basophils % (Manual) Nucleated RBC % Seg Neutrophils # Seg Neutrophils # Man Lymphocytes # (Manual) Monocytes # (Manual) Eosinophils # (Manual) PT INR Fibrinogen dRVVT Confirm Interp Factor V Activity POC ABG pH POC ABG pCO2 POC ABG pO2 Sodium 133 L Potassium 3.5 L Chloride 96.1 L Carbon Dioxide 18 L BUN 76 H Creatinine 2.1 H Glucose POC Glucose 133 H 138 H Lactic Acid Calcium 8.3 L Phosphorus Magnesium Direct Bilirubin AST ALT Alkaline Phosphatase Lactate Dehydrogenase Troponin T C-Reactive Protein Total Protein Albumin Prealbumin Triglycerides Cholesterol LDL Cholesterol Direct HDL Cholesterol Urine pH Urine WBC (Auto) Urine Creatinine Urine Total Protein Vancomycin Trough Rheumatoid Factor Complement C4 Miscellaneous Test Crossmatch 10/23/16 10/23/16 10/24/16 16:53 23:37 04:00 WBC RBC Hgb Hct MCV MCH MCHC RDW Plt Count Lymph % (Auto) [place] % (Auto) Lymph # [place] # Baso # Seg Neutrophils % Seg Neuts % (Manual) Lymphocytes % (Manual) Monocytes % (Manual) Eosinophils % (Manual) Basophils % (Manual) Nucleated RBC % Seg Neutrophils # Seg Neutrophils # Man Lymphocytes # (Manual) Monocytes # (Manual) Eosinophils # (Manual) PT INR Fibrinogen dRVVT Confirm Interp Factor V Activity POC ABG pH POC ABG pCO2 POC ABG pO2 Sodium 131 L Potassium Chloride 94.5 L Carbon Dioxide 19 L BUN 97 H Creatinine 2.6 H Glucose 110 H POC Glucose 125 H 123 H Lactic Acid Calcium 8.3 L Phosphorus Magnesium Direct Bilirubin AST ALT Alkaline Phosphatase Lactate Dehydrogenase Troponin T C-Reactive Protein Total Protein Albumin Prealbumin Triglycerides Cholesterol LDL Cholesterol Direct HDL Cholesterol Urine pH Urine WBC (Auto) Urine Creatinine Urine Total Protein Vancomycin Trough Rheumatoid Factor Complement C4 Miscellaneous Test Crossmatch 10/24/16 10/24/16 10/24/16 07:49 11:39 17:52 WBC RBC Hgb 6.0 L Hct 19.7 L* MCV MCH MCHC RDW Plt Count Lymph % (Auto) [place] % (Auto) Lymph # [place] # Baso # Seg Neutrophils % Seg Neuts % (Manual) Lymphocytes % (Manual) Monocytes % (Manual) Eosinophils % (Manual) Basophils % (Manual) Nucleated RBC % Seg Neutrophils # Seg Neutrophils # Man Lymphocytes # (Manual) Monocytes # (Manual) Eosinophils # (Manual) PT INR Fibrinogen dRVVT Confirm Interp Factor V Activity POC ABG pH POC ABG pCO2 POC ABG pO2 Sodium Potassium Chloride Carbon Dioxide BUN Creatinine Glucose POC Glucose 106 H 158 H Lactic Acid Calcium Phosphorus Magnesium Direct Bilirubin AST ALT Alkaline Phosphatase Lactate Dehydrogenase Troponin T C-Reactive Protein Total Protein Albumin Prealbumin Triglycerides Cholesterol LDL Cholesterol Direct HDL Cholesterol Urine pH Urine WBC (Auto) Urine Creatinine Urine Total Protein Vancomycin Trough Rheumatoid Factor Complement C4 Miscellaneous Test Crossmatch 10/24/16 10/24/16 10/24/16 20:00 22:27 Unknown WBC RBC Hgb 9.4 L D Hct 27.5 L D MCV MCH MCHC RDW Plt Count Lymph % (Auto) [place] % (Auto) Lymph # [place] # Baso # Seg Neutrophils % Seg Neuts % (Manual) Lymphocytes % (Manual) Monocytes % (Manual) Eosinophils % (Manual) Basophils % (Manual) Nucleated RBC % Seg Neutrophils # Seg Neutrophils # Man Lymphocytes # (Manual) Monocytes # (Manual) Eosinophils # (Manual) PT INR Fibrinogen dRVVT Confirm Interp Factor V Activity POC ABG pH POC ABG pCO2 POC ABG pO2 Sodium Potassium Chloride Carbon Dioxide BUN Creatinine Glucose POC Glucose 125 H Lactic Acid Calcium Phosphorus Magnesium Direct Bilirubin AST ALT Alkaline Phosphatase Lactate Dehydrogenase Troponin T C-Reactive Protein Total Protein Albumin Prealbumin Triglycerides Cholesterol LDL Cholesterol Direct HDL Cholesterol Urine pH Urine WBC (Auto) Urine Creatinine Urine Total Protein Vancomycin Trough Rheumatoid Factor Complement C4 Miscellaneous Test Crossmatch See Detail 10/25/16 10/25/16 10/25/16 04:00 04:00 04:00 WBC 14.2 H RBC 2.98 L Hgb 9.0 L Hct 26.2 L MCV MCH MCHC RDW 16.6 H Plt Count Lymph % (Auto) [place] % (Auto) 10.7 H Lymph # [place] # 1.5 H Baso # Seg Neutrophils % 73.6 H Seg Neuts % (Manual) Lymphocytes % (Manual) Monocytes % (Manual) Eosinophils % (Manual) Basophils % (Manual) Nucleated RBC % Seg Neutrophils # 10.5 H Seg Neutrophils # Man Lymphocytes # (Manual) Monocytes # (Manual) Eosinophils # (Manual) PT INR Fibrinogen dRVVT Confirm Interp Factor V Activity POC ABG pH POC ABG pCO2 POC ABG pO2 Sodium 132 L Potassium Chloride 94.7 L Carbon Dioxide BUN 51 H Creatinine 1.6 H Glucose 130 H POC Glucose Lactic Acid Calcium 8.3 L Phosphorus 1.60 L D Magnesium Direct Bilirubin AST ALT Alkaline Phosphatase Lactate Dehydrogenase Troponin T C-Reactive Protein Total Protein Albumin Prealbumin Triglycerides Cholesterol LDL Cholesterol Direct HDL Cholesterol Urine pH Urine WBC (Auto) Urine Creatinine Urine Total Protein Vancomycin Trough Rheumatoid Factor Complement C4 Miscellaneous Test Crossmatch 10/25/16 10/25/16 10/25/16 04:32 11:48 17:22 WBC RBC Hgb Hct MCV MCH MCHC RDW Plt Count Lymph % (Auto) [place] % (Auto) Lymph # [place] # Baso # Seg Neutrophils % Seg Neuts % (Manual) Lymphocytes % (Manual) Monocytes % (Manual) Eosinophils % (Manual) Basophils % (Manual) Nucleated RBC % Seg Neutrophils # Seg Neutrophils # Man Lymphocytes # (Manual) Monocytes # (Manual) Eosinophils # (Manual) PT INR Fibrinogen dRVVT Confirm Interp Factor V Activity POC ABG pH POC ABG pCO2 POC ABG pO2 Sodium Potassium Chloride Carbon Dioxide BUN Creatinine Glucose POC Glucose 124 H 171 H 120 H Lactic Acid Calcium Phosphorus Magnesium Direct Bilirubin AST ALT Alkaline Phosphatase Lactate Dehydrogenase Troponin T C-Reactive Protein Total Protein Albumin Prealbumin Triglycerides Cholesterol LDL Cholesterol Direct HDL Cholesterol Urine pH Urine WBC (Auto) Urine Creatinine Urine Total Protein Vancomycin Trough Rheumatoid Factor Complement C4 Miscellaneous Test Crossmatch 10/26/16 10/26/16 10/26/16 04:54 07:06 07:06 WBC 16.9 H RBC 3.06 L Hgb 9.1 L Hct 26.9 L MCV MCH MCHC RDW 16.9 H Plt Count Lymph % (Auto) [place] % (Auto) Lymph # [place] # Baso # Seg Neutrophils % Seg Neuts % (Manual) 71.0 H Lymphocytes % (Manual) 5.0 L Monocytes % (Manual) 12.0 H Eosinophils % (Manual) Basophils % (Manual) Nucleated RBC % Seg Neutrophils # Seg Neutrophils # Man 12.0 H Lymphocytes # (Manual) 0.8 L Monocytes # (Manual) 2.0 H Eosinophils # (Manual) PT INR Fibrinogen dRVVT Confirm Interp Factor V Activity POC ABG pH POC ABG pCO2 POC ABG pO2 Sodium 135 L Potassium Chloride 97.1 L Carbon Dioxide BUN 73 H Creatinine 2.2 H Glucose 117 H POC Glucose 123 H Lactic Acid Calcium Phosphorus 1.70 L Magnesium Direct Bilirubin AST ALT Alkaline Phosphatase Lactate Dehydrogenase Troponin T C-Reactive Protein Total Protein Albumin Prealbumin Triglycerides Cholesterol LDL Cholesterol Direct HDL Cholesterol Urine pH Urine WBC (Auto) Urine Creatinine Urine Total Protein Vancomycin Trough Rheumatoid Factor Complement C4 Miscellaneous Test Crossmatch 10/26/16 10/26/16 10/26/16 12:12 17:29 23:42 WBC RBC Hgb Hct MCV MCH MCHC RDW Plt Count Lymph % (Auto) [place] % (Auto) Lymph # [place] # Baso # Seg Neutrophils % Seg Neuts % (Manual) Lymphocytes % (Manual) Monocytes % (Manual) Eosinophils % (Manual) Basophils % (Manual) Nucleated RBC % Seg Neutrophils # Seg Neutrophils # Man Lymphocytes # (Manual) Monocytes # (Manual) Eosinophils # (Manual) PT INR Fibrinogen dRVVT Confirm Interp Factor V Activity POC ABG pH POC ABG pCO2 POC ABG pO2 Sodium Potassium Chloride Carbon Dioxide BUN Creatinine Glucose POC Glucose 126 H 161 H 118 H Lactic Acid Calcium Phosphorus Magnesium Direct Bilirubin AST ALT Alkaline Phosphatase Lactate Dehydrogenase Troponin T C-Reactive Protein Total Protein Albumin Prealbumin Triglycerides Cholesterol LDL Cholesterol Direct HDL Cholesterol Urine pH Urine WBC (Auto) Urine Creatinine Urine Total Protein Vancomycin Trough Rheumatoid Factor Complement C4 Miscellaneous Test Crossmatch 10/27/16 10/27/16 10/27/16 05:03 06:30 06:30 WBC 13.9 H RBC 3.09 L Hgb 9.2 L Hct 27.5 L MCV MCH MCHC RDW 17.0 H Plt Count Lymph % (Auto) [place] % (Auto) Lymph # [place] # Baso # Seg Neutrophils % Seg Neuts % (Manual) 78.0 H Lymphocytes % (Manual) Monocytes % (Manual) Eosinophils % (Manual) Basophils % (Manual) Nucleated RBC % 2.0 H Seg Neutrophils # Seg Neutrophils # Man 10.8 H Lymphocytes # (Manual) Monocytes # (Manual) 1.0 H Eosinophils # (Manual) PT INR Fibrinogen dRVVT Confirm Interp Factor V Activity POC ABG pH POC ABG pCO2 POC ABG pO2 Sodium Potassium Chloride Carbon Dioxide BUN 40 H Creatinine 1.5 H Glucose 135 H POC Glucose 107 H Lactic Acid Calcium 8.3 L Phosphorus 1.30 L D Magnesium Direct Bilirubin AST ALT Alkaline Phosphatase Lactate Dehydrogenase Troponin T C-Reactive Protein Total Protein Albumin Prealbumin Triglycerides Cholesterol LDL Cholesterol Direct HDL Cholesterol Urine pH Urine WBC (Auto) Urine Creatinine Urine Total Protein Vancomycin Trough Rheumatoid Factor Complement C4 Miscellaneous Test Crossmatch 10/27/16 10/27/16 10/27/16 13:27 18:07 23:40 WBC RBC Hgb Hct MCV MCH MCHC RDW Plt Count Lymph % (Auto) [place] % (Auto) Lymph # [place] # Baso # Seg Neutrophils % Seg Neuts % (Manual) Lymphocytes % (Manual) Monocytes % (Manual) Eosinophils % (Manual) Basophils % (Manual) Nucleated RBC % Seg Neutrophils # Seg Neutrophils # Man Lymphocytes # (Manual) Monocytes # (Manual) Eosinophils # (Manual) PT INR Fibrinogen dRVVT Confirm Interp Factor V Activity POC ABG pH POC ABG pCO2 POC ABG pO2 Sodium Potassium Chloride Carbon Dioxide BUN Creatinine Glucose POC Glucose 117 H 121 H 118 H Lactic Acid Calcium Phosphorus Magnesium Direct Bilirubin AST ALT Alkaline Phosphatase Lactate Dehydrogenase Troponin T C-Reactive Protein Total Protein Albumin Prealbumin Triglycerides Cholesterol LDL Cholesterol Direct HDL Cholesterol Urine pH Urine WBC (Auto) Urine Creatinine Urine Total Protein Vancomycin Trough Rheumatoid Factor Complement C4 Miscellaneous Test Crossmatch 10/28/16 10/28/16 10/28/16 05:48 06:45 06:45 WBC 14.7 H RBC 3.05 L Hgb 9.0 L Hct 26.9 L MCV MCH MCHC RDW 16.8 H Plt Count Lymph % (Auto) 8.2 L [place] % (Auto) 8.4 H Lymph # [place] # 1.2 H Baso # Seg Neutrophils % 81.9 H Seg Neuts % (Manual) Lymphocytes % (Manual) Monocytes % (Manual) Eosinophils % (Manual) Basophils % (Manual) Nucleated RBC % Seg Neutrophils # 12.1 H Seg Neutrophils # Man Lymphocytes # (Manual) Monocytes # (Manual) Eosinophils # (Manual) PT INR Fibrinogen dRVVT Confirm Interp Factor V Activity POC ABG pH POC ABG pCO2 POC ABG pO2 Sodium Potassium Chloride Carbon Dioxide BUN 60 H Creatinine 1.9 H Glucose 120 H POC Glucose 114 H Lactic Acid Calcium Phosphorus Magnesium Direct Bilirubin AST ALT Alkaline Phosphatase Lactate Dehydrogenase Troponin T C-Reactive Protein Total Protein Albumin Prealbumin Triglycerides Cholesterol LDL Cholesterol Direct HDL Cholesterol Urine pH Urine WBC (Auto) Urine Creatinine Urine Total Protein Vancomycin Trough Rheumatoid Factor Complement C4 Miscellaneous Test Crossmatch 10/28/16 10/28/16 10/29/16 17:08 23:50 05:10 WBC RBC Hgb Hct MCV MCH MCHC RDW Plt Count Lymph % (Auto) [place] % (Auto) Lymph # [place] # Baso # Seg Neutrophils % Seg Neuts % (Manual) Lymphocytes % (Manual) Monocytes % (Manual) Eosinophils % (Manual) Basophils % (Manual) Nucleated RBC % Seg Neutrophils # Seg Neutrophils # Man Lymphocytes # (Manual) Monocytes # (Manual) Eosinophils # (Manual) PT INR Fibrinogen dRVVT Confirm Interp Factor V Activity POC ABG pH POC ABG pCO2 POC ABG pO2 Sodium Potassium Chloride Carbon Dioxide BUN Creatinine Glucose POC Glucose 109 H 110 H 124 H Lactic Acid Calcium Phosphorus Magnesium Direct Bilirubin AST ALT Alkaline Phosphatase Lactate Dehydrogenase Troponin T C-Reactive Protein Total Protein Albumin Prealbumin Triglycerides Cholesterol LDL Cholesterol Direct HDL Cholesterol Urine pH Urine WBC (Auto) Urine Creatinine Urine Total Protein Vancomycin Trough Rheumatoid Factor Complement C4 Miscellaneous Test Crossmatch 10/29/16 10/29/16 10/29/16 07:45 07:45 12:19 WBC 14.7 H RBC 3.15 L Hgb 9.3 L Hct 28.9 L MCV MCH MCHC RDW 17.0 H Plt Count Lymph % (Auto) 11.9 L [place] % (Auto) 8.6 H Lymph # [place] # 1.3 H Baso # Seg Neutrophils % 78.1 H Seg Neuts % (Manual) Lymphocytes % (Manual) Monocytes % (Manual) Eosinophils % (Manual) Basophils % (Manual) Nucleated RBC % Seg Neutrophils # 11.4 H Seg Neutrophils # Man Lymphocytes # (Manual) Monocytes # (Manual) Eosinophils # (Manual) PT INR Fibrinogen dRVVT Confirm Interp Factor V Activity POC ABG pH POC ABG pCO2 POC ABG pO2 Sodium Potassium 5.1 H Chloride Carbon Dioxide 19 L BUN 78 H Creatinine 2.2 H Glucose 116 H POC Glucose 118 H Lactic Acid Calcium Phosphorus Magnesium Direct Bilirubin AST ALT Alkaline Phosphatase Lactate Dehydrogenase Troponin T C-Reactive Protein Total Protein Albumin Prealbumin Triglycerides Cholesterol LDL Cholesterol Direct HDL Cholesterol Urine pH Urine WBC (Auto) Urine Creatinine Urine Total Protein Vancomycin Trough Rheumatoid Factor Complement C4 Miscellaneous Test Crossmatch 10/29/16 10/30/16 10/30/16 17:49 01:52 03:28 WBC RBC Hgb Hct MCV MCH MCHC RDW Plt Count Lymph % (Auto) [place] % (Auto) Lymph # [place] # Baso # Seg Neutrophils % Seg Neuts % (Manual) Lymphocytes % (Manual) Monocytes % (Manual) Eosinophils % (Manual) Basophils % (Manual) Nucleated RBC % Seg Neutrophils # Seg Neutrophils # Man Lymphocytes # (Manual) Monocytes # (Manual) Eosinophils # (Manual) PT INR Fibrinogen dRVVT Confirm Interp Factor V Activity POC ABG pH POC ABG pCO2 POC ABG pO2 Sodium Potassium 5.4 H Chloride 97.5 L Carbon Dioxide 19 L BUN 90 H Creatinine 2.5 H Glucose POC Glucose 120 H 129 H Lactic Acid Calcium Phosphorus 5.20 H Magnesium Direct Bilirubin AST ALT Alkaline Phosphatase Lactate Dehydrogenase Troponin T C-Reactive Protein Total Protein Albumin Prealbumin Triglycerides Cholesterol LDL Cholesterol Direct HDL Cholesterol Urine pH Urine WBC (Auto) Urine Creatinine Urine Total Protein Vancomycin Trough Rheumatoid Factor Complement C4 Miscellaneous Test Crossmatch 10/30/16 10/30/16 10/30/16 03:28 08:19 08:19 WBC 11.6 H 15.9 H RBC 2.75 L 2.82 L Hgb 7.9 L 8.3 L Hct 24.2 L 25.2 L MCV MCH MCHC RDW 16.7 H 17.2 H Plt Count Lymph % (Auto) [place] % (Auto) 9.8 H Lymph # [place] # 1.1 H Baso # Seg Neutrophils % 74.2 H Seg Neuts % (Manual) Lymphocytes % (Manual) Monocytes % (Manual) Eosinophils % (Manual) Basophils % (Manual) Nucleated RBC % Seg Neutrophils # 8.6 H Seg Neutrophils # Man Lymphocytes # (Manual) Monocytes # (Manual) Eosinophils # (Manual) PT INR Fibrinogen dRVVT Confirm Interp Factor V Activity POC ABG pH POC ABG pCO2 POC ABG pO2 Sodium Potassium 5.3 H Chloride 97.4 L Carbon Dioxide 19 L BUN 93 H Creatinine 2.6 H Glucose POC Glucose Lactic Acid Calcium Phosphorus Magnesium Direct Bilirubin AST ALT Alkaline Phosphatase Lactate Dehydrogenase Troponin T C-Reactive Protein Total Protein Albumin Prealbumin Triglycerides Cholesterol LDL Cholesterol Direct HDL Cholesterol Urine pH Urine WBC (Auto) Urine Creatinine Urine Total Protein Vancomycin Trough Rheumatoid Factor Complement C4 Miscellaneous Test Crossmatch 10/30/16 10/30/16 10/31/16 17:11 23:56 00:40 WBC RBC Hgb Hct MCV MCH MCHC RDW Plt Count Lymph % (Auto) [place] % (Auto) Lymph # [place] # Baso # Seg Neutrophils % Seg Neuts % (Manual) Lymphocytes % (Manual) Monocytes % (Manual) Eosinophils % (Manual) Basophils % (Manual) Nucleated RBC % Seg Neutrophils # Seg Neutrophils # Man Lymphocytes # (Manual) Monocytes # (Manual) Eosinophils # (Manual) PT INR Fibrinogen dRVVT Confirm Interp Factor V Activity POC ABG pH POC ABG pCO2 POC ABG pO2 Sodium Potassium Chloride Carbon Dioxide BUN Creatinine Glucose POC Glucose 106 H 117 H 120 H Lactic Acid Calcium Phosphorus Magnesium Direct Bilirubin AST ALT Alkaline Phosphatase Lactate Dehydrogenase Troponin T C-Reactive Protein Total Protein Albumin Prealbumin Triglycerides Cholesterol LDL Cholesterol Direct HDL Cholesterol Urine pH Urine WBC (Auto) Urine Creatinine Urine Total Protein Vancomycin Trough Rheumatoid Factor Complement C4 Miscellaneous Test Crossmatch 10/31/16 10/31/16 10/31/16 05:43 07:15 07:15 WBC 12.1 H RBC 2.63 L Hgb 7.7 L Hct 23.3 L MCV MCH MCHC RDW 16.7 H Plt Count Lymph % (Auto) 11.7 L [place] % (Auto) 7.7 H Lymph # [place] # 0.9 H Baso # Seg Neutrophils % 78.0 H Seg Neuts % (Manual) Lymphocytes % (Manual) Monocytes % (Manual) Eosinophils % (Manual) Basophils % (Manual) Nucleated RBC % Seg Neutrophils # 9.4 H Seg Neutrophils # Man Lymphocytes # (Manual) Monocytes # (Manual) Eosinophils # (Manual) PT INR Fibrinogen dRVVT Confirm Interp Factor V Activity POC ABG pH POC ABG pCO2 POC ABG pO2 Sodium Potassium Chloride 96.4 L Carbon Dioxide 21 L BUN 99 H Creatinine 2.6 H Glucose 144 H POC Glucose 125 H Lactic Acid Calcium Phosphorus 4.80 H Magnesium Direct Bilirubin AST ALT Alkaline Phosphatase Lactate Dehydrogenase Troponin T C-Reactive Protein Total Protein Albumin Prealbumin Triglycerides Cholesterol LDL Cholesterol Direct HDL Cholesterol Urine pH Urine WBC (Auto) Urine Creatinine Urine Total Protein Vancomycin Trough Rheumatoid Factor Complement C4 Miscellaneous Test Crossmatch 10/31/16 10/31/16 11/01/16 11:46 18:34 00:20 WBC RBC Hgb Hct MCV MCH MCHC RDW Plt Count Lymph % (Auto) [place] % (Auto) Lymph # [place] # Baso # Seg Neutrophils % Seg Neuts % (Manual) Lymphocytes % (Manual) Monocytes % (Manual) Eosinophils % (Manual) Basophils % (Manual) Nucleated RBC % Seg Neutrophils # Seg Neutrophils # Man Lymphocytes # (Manual) Monocytes # (Manual) Eosinophils # (Manual) PT INR Fibrinogen dRVVT Confirm Interp Factor V Activity POC ABG pH POC ABG pCO2 POC ABG pO2 Sodium Potassium Chloride Carbon Dioxide BUN Creatinine Glucose POC Glucose 159 H 140 H 132 H Lactic Acid Calcium Phosphorus Magnesium Direct Bilirubin AST ALT Alkaline Phosphatase Lactate Dehydrogenase Troponin T C-Reactive Protein Total Protein Albumin Prealbumin Triglycerides Cholesterol LDL Cholesterol Direct HDL Cholesterol Urine pH Urine WBC (Auto) Urine Creatinine Urine Total Protein Vancomycin Trough Rheumatoid Factor Complement C4 Miscellaneous Test Crossmatch 11/01/16 11/01/16 11/01/16 04:55 04:55 06:11 WBC 11.2 H RBC 2.68 L Hgb 7.5 L Hct 23.7 L MCV MCH MCHC RDW 16.1 H Plt Count Lymph % (Auto) [place] % (Auto) 9.8 H Lymph # [place] # 1.1 H Baso # Seg Neutrophils % 70.8 H Seg Neuts % (Manual) Lymphocytes % (Manual) Monocytes % (Manual) Eosinophils % (Manual) Basophils % (Manual) Nucleated RBC % Seg Neutrophils # 7.9 H Seg Neutrophils # Man Lymphocytes # (Manual) Monocytes # (Manual) Eosinophils # (Manual) PT INR Fibrinogen dRVVT Confirm Interp Factor V Activity POC ABG pH POC ABG pCO2 POC ABG pO2 Sodium Potassium 3.3 L D Chloride Carbon Dioxide BUN 61 H Creatinine 1.9 H Glucose 114 H POC Glucose 115 H Lactic Acid Calcium Phosphorus 1.80 L D Magnesium Direct Bilirubin AST ALT Alkaline Phosphatase Lactate Dehydrogenase Troponin T C-Reactive Protein Total Protein Albumin Prealbumin Triglycerides Cholesterol LDL Cholesterol Direct HDL Cholesterol Urine pH Urine WBC (Auto) Urine Creatinine Urine Total Protein Vancomycin Trough Rheumatoid Factor Complement C4 Miscellaneous Test Crossmatch 11/01/16 11/01/16 11/01/16 12:29 18:23 23:58 WBC RBC Hgb Hct MCV MCH MCHC RDW Plt Count Lymph % (Auto) [place] % (Auto) Lymph # [place] # Baso # Seg Neutrophils % Seg Neuts % (Manual) Lymphocytes % (Manual) Monocytes % (Manual) Eosinophils % (Manual) Basophils % (Manual) Nucleated RBC % Seg Neutrophils # Seg Neutrophils # Man Lymphocytes # (Manual) Monocytes # (Manual) Eosinophils # (Manual) PT INR Fibrinogen dRVVT Confirm Interp Factor V Activity POC ABG pH POC ABG pCO2 POC ABG pO2 Sodium Potassium Chloride Carbon Dioxide BUN Creatinine Glucose POC Glucose 142 H 143 H 128 H Lactic Acid Calcium Phosphorus Magnesium Direct Bilirubin AST ALT Alkaline Phosphatase Lactate Dehydrogenase Troponin T C-Reactive Protein Total Protein Albumin Prealbumin Triglycerides Cholesterol LDL Cholesterol Direct HDL Cholesterol Urine pH Urine WBC (Auto) Urine Creatinine Urine Total Protein Vancomycin Trough Rheumatoid Factor Complement C4 Miscellaneous Test Crossmatch 11/02/16 11/02/16 11/02/16 04:16 05:29 11:58 WBC RBC Hgb Hct MCV MCH MCHC RDW Plt Count Lymph % (Auto) [place] % (Auto) Lymph # [place] # Baso # Seg Neutrophils % Seg Neuts % (Manual) Lymphocytes % (Manual) Monocytes % (Manual) Eosinophils % (Manual) Basophils % (Manual) Nucleated RBC % Seg Neutrophils # Seg Neutrophils # Man Lymphocytes # (Manual) Monocytes # (Manual) Eosinophils # (Manual) PT INR Fibrinogen dRVVT Confirm Interp Factor V Activity POC ABG pH POC ABG pCO2 POC ABG pO2 Sodium Potassium 3.1 L Chloride Carbon Dioxide BUN 73 H Creatinine 2.3 H Glucose 112 H POC Glucose 135 H 149 H Lactic Acid Calcium Phosphorus Magnesium Direct Bilirubin AST ALT Alkaline Phosphatase Lactate Dehydrogenase Troponin T C-Reactive Protein Total Protein Albumin Prealbumin Triglycerides Cholesterol LDL Cholesterol Direct HDL Cholesterol Urine pH Urine WBC (Auto) Urine Creatinine Urine Total Protein Vancomycin Trough Rheumatoid Factor Complement C4 Miscellaneous Test Crossmatch 11/02/16 11/02/16 11/03/16 17:42 22:54 06:00 WBC RBC Hgb Hct MCV MCH MCHC RDW Plt Count Lymph % (Auto) [place] % (Auto) Lymph # [place] # Baso # Seg Neutrophils % Seg Neuts % (Manual) Lymphocytes % (Manual) Monocytes % (Manual) Eosinophils % (Manual) Basophils % (Manual) Nucleated RBC % Seg Neutrophils # Seg Neutrophils # Man Lymphocytes # (Manual) Monocytes # (Manual) Eosinophils # (Manual) PT INR Fibrinogen dRVVT Confirm Interp Factor V Activity POC ABG pH POC ABG pCO2 POC ABG pO2 Sodium Potassium Chloride 96.7 L Carbon Dioxide BUN 41 H Creatinine 1.5 H Glucose 145 H POC Glucose 182 H 115 H Lactic Acid Calcium Phosphorus 1.60 L D Magnesium 1.50 L Direct Bilirubin AST ALT Alkaline Phosphatase Lactate Dehydrogenase Troponin T C-Reactive Protein Total Protein Albumin Prealbumin Triglycerides Cholesterol LDL Cholesterol Direct HDL Cholesterol Urine pH Urine WBC (Auto) Urine Creatinine Urine Total Protein Vancomycin Trough Rheumatoid Factor Complement C4 Miscellaneous Test Crossmatch 11/03/16 11/03/16 11/03/16 11:53 17:45 23:37 WBC RBC Hgb Hct MCV MCH MCHC RDW Plt Count Lymph % (Auto) [place] % (Auto) Lymph # [place] # Baso # Seg Neutrophils % Seg Neuts % (Manual) Lymphocytes % (Manual) Monocytes % (Manual) Eosinophils % (Manual) Basophils % (Manual) Nucleated RBC % Seg Neutrophils # Seg Neutrophils # Man Lymphocytes # (Manual) Monocytes # (Manual) Eosinophils # (Manual) PT INR Fibrinogen dRVVT Confirm Interp Factor V Activity POC ABG pH POC ABG pCO2 POC ABG pO2 Sodium Potassium Chloride Carbon Dioxide BUN Creatinine Glucose POC Glucose 131 H 134 H 113 H Lactic Acid Calcium Phosphorus Magnesium Direct Bilirubin AST ALT Alkaline Phosphatase Lactate Dehydrogenase Troponin T C-Reactive Protein Total Protein Albumin Prealbumin Triglycerides Cholesterol LDL Cholesterol Direct HDL Cholesterol Urine pH Urine WBC (Auto) Urine Creatinine Urine Total Protein Vancomycin Trough Rheumatoid Factor Complement C4 Miscellaneous Test Crossmatch 11/04/16 11/04/16 11/04/16 05:41 06:00 12:10 WBC RBC Hgb Hct MCV MCH MCHC RDW Plt Count Lymph % (Auto) [place] % (Auto) Lymph # [place] # Baso # Seg Neutrophils % Seg Neuts % (Manual) Lymphocytes % (Manual) Monocytes % (Manual) Eosinophils % (Manual) Basophils % (Manual) Nucleated RBC % Seg Neutrophils # Seg Neutrophils # Man Lymphocytes # (Manual) Monocytes # (Manual) Eosinophils # (Manual) PT INR Fibrinogen dRVVT Confirm Interp Factor V Activity POC ABG pH POC ABG pCO2 POC ABG pO2 Sodium Potassium Chloride 96.7 L Carbon Dioxide BUN 52 H Creatinine 1.9 H Glucose 126 H POC Glucose 137 H 191 H Lactic Acid Calcium Phosphorus Magnesium Direct Bilirubin AST ALT Alkaline Phosphatase Lactate Dehydrogenase Troponin T C-Reactive Protein Total Protein Albumin Prealbumin Triglycerides Cholesterol LDL Cholesterol Direct HDL Cholesterol Urine pH Urine WBC (Auto) Urine Creatinine Urine Total Protein Vancomycin Trough Rheumatoid Factor Complement C4 Miscellaneous Test Crossmatch 11/04/16 11/05/16 11/05/16 22:57 03:10 05:10 WBC RBC Hgb Hct MCV MCH MCHC RDW Plt Count Lymph % (Auto) [place] % (Auto) Lymph # [place] # Baso # Seg Neutrophils % Seg Neuts % (Manual) Lymphocytes % (Manual) Monocytes % (Manual) Eosinophils % (Manual) Basophils % (Manual) Nucleated RBC % Seg Neutrophils # Seg Neutrophils # Man Lymphocytes # (Manual) Monocytes # (Manual) Eosinophils # (Manual) PT INR Fibrinogen dRVVT Confirm Interp Factor V Activity POC ABG pH POC ABG pCO2 POC ABG pO2 Sodium 136 L Potassium Chloride 97.2 L Carbon Dioxide BUN 32 H Creatinine 1.3 H Glucose 123 H POC Glucose 125 H 108 H Lactic Acid Calcium 7.8 L Phosphorus Magnesium Direct Bilirubin AST ALT Alkaline Phosphatase Lactate Dehydrogenase Troponin T C-Reactive Protein Total Protein Albumin Prealbumin Triglycerides Cholesterol LDL Cholesterol Direct HDL Cholesterol Urine pH Urine WBC (Auto) Urine Creatinine Urine Total Protein Vancomycin Trough Rheumatoid Factor Complement C4 Miscellaneous Test Crossmatch 11/05/16 11/05/16 11/05/16 12:23 13:09 13:25 WBC RBC Hgb Hct MCV MCH MCHC RDW Plt Count Lymph % (Auto) [place] % (Auto) Lymph # [place] # Baso # Seg Neutrophils % Seg Neuts % (Manual) Lymphocytes % (Manual) Monocytes % (Manual) Eosinophils % (Manual) Basophils % (Manual) Nucleated RBC % Seg Neutrophils # Seg Neutrophils # Man Lymphocytes # (Manual) Monocytes # (Manual) Eosinophils # (Manual) PT INR Fibrinogen dRVVT Confirm Interp Factor V Activity POC ABG pH POC ABG pCO2 POC ABG pO2 Sodium Potassium Chloride Carbon Dioxide BUN Creatinine Glucose POC Glucose 124 H Lactic Acid Calcium Phosphorus Magnesium Direct Bilirubin AST ALT Alkaline Phosphatase Lactate Dehydrogenase Troponin T C-Reactive Protein 11.40 H Total Protein Albumin Prealbumin Triglycerides Cholesterol LDL Cholesterol Direct HDL Cholesterol Urine pH 9.0 H Urine WBC (Auto) Urine Creatinine Urine Total Protein Vancomycin Trough Rheumatoid Factor Complement C4 Miscellaneous Test Crossmatch 11/05/16 11/05/16 11/05/16 13:25 17:54 23:42 WBC RBC Hgb Hct MCV MCH MCHC RDW Plt Count Lymph % (Auto) [place] % (Auto) Lymph # [place] # Baso # Seg Neutrophils % Seg Neuts % (Manual) Lymphocytes % (Manual) Monocytes % (Manual) Eosinophils % (Manual) Basophils % (Manual) Nucleated RBC % Seg Neutrophils # Seg Neutrophils # Man Lymphocytes # (Manual) Monocytes # (Manual) Eosinophils # (Manual) PT INR Fibrinogen dRVVT Confirm Interp Factor V Activity POC ABG pH POC ABG pCO2 POC ABG pO2 Sodium Potassium Chloride Carbon Dioxide BUN Creatinine Glucose POC Glucose 114 H 134 H Lactic Acid Calcium Phosphorus Magnesium Direct Bilirubin AST ALT Alkaline Phosphatase Lactate Dehydrogenase Troponin T C-Reactive Protein Total Protein Albumin Prealbumin Triglycerides Cholesterol LDL Cholesterol Direct HDL Cholesterol Urine pH Urine WBC (Auto) Urine Creatinine Urine Total Protein Vancomycin Trough Rheumatoid Factor Complement C4 Miscellaneous Test Flexitest 1 H Crossmatch 11/06/16 11/06/16 11/06/16 04:56 06:25 06:25 WBC RBC 2.50 L Hgb 7.3 L Hct 22.5 L MCV MCH MCHC RDW 16.9 H Plt Count Lymph % (Auto) [place] % (Auto) 10.5 H Lymph # [place] # 1.1 H Baso # Seg Neutrophils % Seg Neuts % (Manual) Lymphocytes % (Manual) Monocytes % (Manual) Eosinophils % (Manual) Basophils % (Manual) Nucleated RBC % Seg Neutrophils # Seg Neutrophils # Man Lymphocytes # (Manual) Monocytes # (Manual) Eosinophils # (Manual) PT INR Fibrinogen dRVVT Confirm Interp Factor V Activity POC ABG pH POC ABG pCO2 POC ABG pO2 Sodium Potassium 5.1 H Chloride 95.9 L Carbon Dioxide BUN 52 H Creatinine 1.8 H Glucose 117 H POC Glucose 120 H Lactic Acid Calcium Phosphorus Magnesium Direct Bilirubin AST 103 H ALT 77 H Alkaline Phosphatase 285 H Lactate Dehydrogenase Troponin T C-Reactive Protein Total Protein 6.2 L Albumin 1.8 L Prealbumin 0.180 L Triglycerides Cholesterol LDL Cholesterol Direct HDL Cholesterol Urine pH Urine WBC (Auto) Urine Creatinine Urine Total Protein Vancomycin Trough Rheumatoid Factor Complement C4 Miscellaneous Test Crossmatch 11/06/16 11/06/16 11/06/16 11:56 17:14 23:52 WBC RBC Hgb Hct MCV MCH MCHC RDW Plt Count Lymph % (Auto) [place] % (Auto) Lymph # [place] # Baso # Seg Neutrophils % Seg Neuts % (Manual) Lymphocytes % (Manual) Monocytes % (Manual) Eosinophils % (Manual) Basophils % (Manual) Nucleated RBC % Seg Neutrophils # Seg Neutrophils # Man Lymphocytes # (Manual) Monocytes # (Manual) Eosinophils # (Manual) PT INR Fibrinogen dRVVT Confirm Interp Factor V Activity POC ABG pH POC ABG pCO2 POC ABG pO2 Sodium Potassium Chloride Carbon Dioxide BUN Creatinine Glucose POC Glucose 141 H 125 H 130 H Lactic Acid Calcium Phosphorus Magnesium Direct Bilirubin AST ALT Alkaline Phosphatase Lactate Dehydrogenase Troponin T C-Reactive Protein Total Protein Albumin Prealbumin Triglycerides Cholesterol LDL Cholesterol Direct HDL Cholesterol Urine pH Urine WBC (Auto) Urine Creatinine Urine Total Protein Vancomycin Trough Rheumatoid Factor Complement C4 Miscellaneous Test Crossmatch 11/07/16 11/07/16 11/07/16 06:30 06:30 09:37 WBC RBC 2.18 L Hgb 6.3 L Hct 19.7 L* MCV MCH MCHC RDW 16.8 H Plt Count Lymph % (Auto) [place] % (Auto) 10.0 H Lymph # [place] # 1.0 H Baso # Seg Neutrophils % Seg Neuts % (Manual) Lymphocytes % (Manual) Monocytes % (Manual) Eosinophils % (Manual) Basophils % (Manual) Nucleated RBC % Seg Neutrophils # Seg Neutrophils # Man Lymphocytes # (Manual) Monocytes # (Manual) Eosinophils # (Manual) PT INR Fibrinogen dRVVT Confirm Interp Factor V Activity POC ABG pH POC ABG pCO2 POC ABG pO2 Sodium 135 L Potassium Chloride 95.6 L Carbon Dioxide BUN 70 H Creatinine 2.0 H Glucose 126 H POC Glucose Lactic Acid Calcium Phosphorus Magnesium Direct Bilirubin AST ALT Alkaline Phosphatase Lactate Dehydrogenase Troponin T C-Reactive Protein Total Protein Albumin Prealbumin Triglycerides Cholesterol LDL Cholesterol Direct HDL Cholesterol Urine pH Urine WBC (Auto) Urine Creatinine Urine Total Protein Vancomycin Trough Rheumatoid Factor Complement C4 Miscellaneous Test Crossmatch See Detail 11/07/16 11/07/16 11/07/16 12:52 18:51 21:26 WBC RBC Hgb Hct MCV MCH MCHC RDW Plt Count Lymph % (Auto) [place] % (Auto) Lymph # [place] # Baso # Seg Neutrophils % Seg Neuts % (Manual) Lymphocytes % (Manual) Monocytes % (Manual) Eosinophils % (Manual) Basophils % (Manual) Nucleated RBC % Seg Neutrophils # Seg Neutrophils # Man Lymphocytes # (Manual) Monocytes # (Manual) Eosinophils # (Manual) PT INR Fibrinogen dRVVT Confirm Interp Factor V Activity POC ABG pH 7.523 H POC ABG pCO2 34.6 L POC ABG pO2 53 L Sodium Potassium Chloride Carbon Dioxide BUN Creatinine Glucose POC Glucose 142 H 155 H Lactic Acid Calcium Phosphorus Magnesium Direct Bilirubin AST ALT Alkaline Phosphatase Lactate Dehydrogenase Troponin T C-Reactive Protein Total Protein Albumin Prealbumin Triglycerides Cholesterol LDL Cholesterol Direct HDL Cholesterol Urine pH Urine WBC (Auto) Urine Creatinine Urine Total Protein Vancomycin Trough Rheumatoid Factor Complement C4 Miscellaneous Test Crossmatch 11/07/16 11/08/16 11/08/16 21:34 13:03 23:37 WBC RBC 2.63 L Hgb 7.7 L Hct 22.7 L MCV MCH MCHC RDW 17.0 H Plt Count Lymph % (Auto) [place] % (Auto) Lymph # [place] # Baso # Seg Neutrophils % Seg Neuts % (Manual) Lymphocytes % (Manual) Monocytes % (Manual) Eosinophils % (Manual) Basophils % (Manual) Nucleated RBC % Seg Neutrophils # Seg Neutrophils # Man Lymphocytes # (Manual) Monocytes # (Manual) Eosinophils # (Manual) PT INR Fibrinogen dRVVT Confirm Interp Factor V Activity POC ABG pH 7.478 H POC ABG pCO2 34.0 L POC ABG pO2 50 L Sodium Potassium Chloride Carbon Dioxide BUN Creatinine Glucose POC Glucose 113 H Lactic Acid Calcium Phosphorus Magnesium Direct Bilirubin AST ALT Alkaline Phosphatase Lactate Dehydrogenase Troponin T C-Reactive Protein Total Protein Albumin Prealbumin Triglycerides Cholesterol LDL Cholesterol Direct HDL Cholesterol Urine pH Urine WBC (Auto) Urine Creatinine Urine Total Protein Vancomycin Trough Rheumatoid Factor Complement C4 Miscellaneous Test Crossmatch 11/09/16 11/09/16 11/09/16 04:35 10:15 18:21 WBC RBC 2.68 L Hgb 7.8 L Hct 23.3 L MCV MCH MCHC RDW 17.0 H Plt Count Lymph % (Auto) [place] % (Auto) 12.1 H Lymph # [place] # 1.1 H Baso # Seg Neutrophils % Seg Neuts % (Manual) Lymphocytes % (Manual) Monocytes % (Manual) Eosinophils % (Manual) Basophils % (Manual) Nucleated RBC % Seg Neutrophils # Seg Neutrophils # Man Lymphocytes # (Manual) Monocytes # (Manual) Eosinophils # (Manual) PT INR Fibrinogen dRVVT Confirm Interp Factor V Activity POC ABG pH POC ABG pCO2 POC ABG pO2 Sodium Potassium Chloride Carbon Dioxide BUN 51 H Creatinine 1.8 H Glucose POC Glucose 60 L Lactic Acid Calcium 8.3 L Phosphorus Magnesium Direct Bilirubin AST ALT Alkaline Phosphatase Lactate Dehydrogenase Troponin T C-Reactive Protein Total Protein Albumin Prealbumin Triglycerides Cholesterol LDL Cholesterol Direct HDL Cholesterol Urine pH Urine WBC (Auto) Urine Creatinine Urine Total Protein Vancomycin Trough Rheumatoid Factor Complement C4 Miscellaneous Test Crossmatch 11/09/16 11/10/16 11/10/16 18:55 07:00 11:51 WBC RBC Hgb Hct MCV MCH MCHC RDW Plt Count Lymph % (Auto) [place] % (Auto) Lymph # [place] # Baso # Seg Neutrophils % Seg Neuts % (Manual) Lymphocytes % (Manual) Monocytes % (Manual) Eosinophils % (Manual) Basophils % (Manual) Nucleated RBC % Seg Neutrophils # Seg Neutrophils # Man Lymphocytes # (Manual) Monocytes # (Manual) Eosinophils # (Manual) PT INR Fibrinogen dRVVT Confirm Interp Factor V Activity POC ABG pH POC ABG pCO2 POC ABG pO2 Sodium Potassium 3.0 L D Chloride 97.4 L Carbon Dioxide BUN 28 H Creatinine 1.3 H Glucose POC Glucose 68 L 120 H Lactic Acid Calcium 7.8 L Phosphorus Magnesium Direct Bilirubin AST ALT Alkaline Phosphatase Lactate Dehydrogenase Troponin T C-Reactive Protein Total Protein Albumin Prealbumin Triglycerides Cholesterol LDL Cholesterol Direct HDL Cholesterol Urine pH Urine WBC (Auto) Urine Creatinine Urine Total Protein Vancomycin Trough Rheumatoid Factor Complement C4 Miscellaneous Test Crossmatch 11/11/16 11/11/16 11/11/16 06:59 06:59 06:59 WBC RBC 2.81 L Hgb 8.1 L Hct 24.4 L MCV MCH MCHC RDW 16.4 H Plt Count Lymph % (Auto) [place] % (Auto) 10.8 H Lymph # [place] # 1.0 H Baso # Seg Neutrophils % Seg Neuts % (Manual) Lymphocytes % (Manual) Monocytes % (Manual) Eosinophils % (Manual) Basophils % (Manual) Nucleated RBC % Seg Neutrophils # Seg Neutrophils # Man Lymphocytes # (Manual) Monocytes # (Manual) Eosinophils # (Manual) PT INR Fibrinogen dRVVT Confirm Interp Factor V Activity POC ABG pH POC ABG pCO2 POC ABG pO2 Sodium 136 L Potassium Chloride 96.1 L Carbon Dioxide BUN 37 H Creatinine 1.8 H Glucose POC Glucose Lactic Acid Calcium Phosphorus Magnesium Direct Bilirubin AST ALT Alkaline Phosphatase Lactate Dehydrogenase 196 H Troponin T C-Reactive Protein Total Protein 6.1 L Albumin Prealbumin Triglycerides Cholesterol LDL Cholesterol Direct HDL Cholesterol Urine pH Urine WBC (Auto) Urine Creatinine Urine Total Protein Vancomycin Trough Rheumatoid Factor Complement C4 Miscellaneous Test Crossmatch 11/11/16 11/12/16 11/12/16 09:50 04:00 04:00 WBC RBC Hgb 8.9 L Hct 27.2 L MCV MCH MCHC RDW Plt Count Lymph % (Auto) [place] % (Auto) Lymph # [place] # Baso # Seg Neutrophils % Seg Neuts % (Manual) Lymphocytes % (Manual) Monocytes % (Manual) Eosinophils % (Manual) Basophils % (Manual) Nucleated RBC % Seg Neutrophils # Seg Neutrophils # Man Lymphocytes # (Manual) Monocytes # (Manual) Eosinophils # (Manual) PT INR 1.18 H Fibrinogen dRVVT Confirm Interp Factor V Activity POC ABG pH POC ABG pCO2 POC ABG pO2 Sodium 133 L Potassium Chloride 94.8 L Carbon Dioxide 21 L BUN 42 H Creatinine 2.0 H Glucose POC Glucose Lactic Acid Calcium Phosphorus Magnesium Direct Bilirubin AST ALT Alkaline Phosphatase Lactate Dehydrogenase Troponin T C-Reactive Protein Total Protein Albumin Prealbumin Triglycerides Cholesterol LDL Cholesterol Direct HDL Cholesterol Urine pH Urine WBC (Auto) Urine Creatinine Urine Total Protein Vancomycin Trough Rheumatoid Factor Complement C4 Miscellaneous Test Crossmatch Allied health notes reviewed: RT
[2016-11-12] MEDS: HumuLIN R SUB-Q SCH (15:37)
[2016-11-12] MEDS: TYLENOL FEEDTUBE PRN (21:56)
[2016-11-13] MEDS: HumuLIN R SUB-Q SCH ×6 (01:42→23:58)
[2016-11-13] MEDS: APRESOLINE IV PRN ×3 (05:00→11:52)
[2016-11-13] MEDS: LOPRESSOR PO SCH ×2 (06:02)
[2016-11-13] MEDS: MORPHINE IV PRN ×2 (06:03→09:13)
[2016-11-13 06:55] LABS: BUN/Creatinine Ratio 23.63; Calcium 8.9 mg/dL (8.4-10.2)
--- NOTE | 2016-11-13 06:56 | XRay Report ---
FINAL REPORT EXAM: XR ABDOMEN 1V AP HISTORY: dobhoff tube placement COMPARISONS: CT 11/09/2016 FINDINGS: Portable supine AP view of the abdomen No supine evidence of pneumoperitoneum. Positive enteric contrast is seen within the left colon. Right upper quadrant surgical clips. Dobhoff tube coiled in the left upper quadrant. IMPRESSION: Dobhoff tube is coiled in the left upper quadrant. If post pyloric positioning is desired, advancement and repeat imaging is suggested.
--- NOTE | 2016-11-13 08:39 | Progress Note ---
Assessment and Plan Assessment and plan: 46-year-old woman with a history of hypertension, diabetes, asthma, hyperlipidemia, chronic kidney disease and anxiety , who was brought in by family because, she couldn't get her words out, her face was also twisted, she was admitted for acute CVA and accelerated hypertension, she had a hx of poor adherence with her medications, and uncontrolled htn. Patient's blood pressure systolically on admission was noted be greater than 260. TPA was started but this was discontinued after 5 minutes because her blood pressure became uncontrolled. The TPA was not initiated again because the patient was outside the TPA window. Fever Tmax 100.3. ID Physician was reconsulted, now following. I have discussed case with her multiple times. Patient now on Cefepime and vancomycin chest x-ray, blood cultures were unremarkable, catheter site growing multiple organisms -still having high fevers, continue cefepime and vancomycin, -Severe Sepsis with septic shock, recurrent. Patient with multiple episodes of sepsis. Initial episode due to presumed aspiration pneumonia and septic episode on 09/23 from candidemia then a third episode from peritonitis from gastric perforation from dislodged PEG , there was an abscess in the abdomen present at that time that was draining pus. +/-UTI. The latest episode was related to surgical site infection. Continue antibiotics per ID. Surgical wound infection/gram-negative sepsis/candidemia/peritonitis PEG has been removed Has already completed 14 days of abx and antifungals, ID input appreciated She will need to be on tube feeds through NG tube for a month, and then either a gastrostomy or jejunostomy tube replaced after her GI wounds have healed and infection is cleared -continue wound care to ostomy sites JUANITA, now ESRD Likely due to vasomotor nephropathy and ATN given sepsis Nephrology input appreciated, continue hemodialysis Creatinine 2.0 today Acute CVA with infarct. sp TPA Continue neuro checks. Neurology input appreciated, CT shows continued evolution of left MCA infarct with slight mass effect and edema, and there is no hemorrhage - PRINCE showed hyperdynamic with ef of 75%, neither clot nor septal defect seen - MRA Brain shows near complete occlusion of M2 and M3 of the left MCA - Repeat CT scan done on 09/11, shows stable findings - carotid doppler negative - Echo shows preserved systolic function but does show some left ventricular diastolic dysfunction - continue asa and statin for secondary ppx Paroxysmal atrial fibrillation. On Metoprolol Persistent vegetative state This patient's needs placement at either hospice or SNF -She was denied for LTACH Acute hypoxic respiratory failure requiring MV >96hrs Status post tracheostomy, continue to wean off vent, has been tolerating T piece Nosocomial acquired aspiration pneumonia/sepsis/UTI She had completed a course of antibiotics. Now on Cefepime and Vanco for fever Asthma/COPD exacerbation Now has trach Acute Toxic Metabolic encephalopathy. Multitifactorial, mostly secondary to evolution of CVA Hypertensive Emergency Now on Metoprolol, Cozaar,Hydralazine, Clonidine patch. BP uncontrolled. Will increase dose of Hydralazine to 50 mg Q 8h. Will also increase total dose of Metoprolol to 100 mg Q 8h to improve blood pressure control and also to control heart rate. Paroxysmal atrial fibrillation with rapid ventricular rate, failed cardioversion Continue current medications, Not a candidate for anticoagulation secondary to anemia thrombocytopenia and massive CVA Hypokalemia/Hypomagnesemia/hypophosphatemia. Replete electrolytes as needed. Diabetes type 2. Continue sliding-scale regular insulin and Accu-Cheks. Hyperlipidemia. Continue statin Nutrition continue tube feeds Anemia requiring multiple transfusions/acute blood loss Has received total 13 units of PRBC this admission. Will continue to transfuse to keep Hemoglobin above 7 Hemoglobin 8.9, most recent Her POA is her Brother, Jam [phone] Disposition. Very poor prognosis. Plan is for SNF placement, she was ready denied by [facility] History Interval history: Patient has prolonged stay Fever recurrent, temp of 100.3 this morning Hospitalist Physical - Physical exam Narrative exam: Gen appearance: Trach, not in acute distress HEENT: Atraumatic Neck: Tracheostomy Lungs: Coarse breath sounds, no crackles or wheezes Heart :S1 and S2 irregular, rapid,no murmurs, rubs or gallop Abdomen: Soft, non tender, nod distended, ostomy bags, bowel sounds present Extremities : bilateral edema, upper and lower ext Neuro: Minimal responsive, opens eyes, Does not follow commands - Constitutional Vitals: Temp Pulse Resp BP Pulse Ox 97.7 F 113 H 20 204/104 99 11/13/16 07:57 11/13/16 08:00 11/13/16 08:00 11/13/16 08:00 11/13/16 08:00 General appearance: Present: no acute distress, obese, other (on vent, non- responsive) Results - Labs CBC & Chem 7: 11/12/16 04:00 11/13/16 Unknown Labs: Laboratory Last Values WBC 9.1 K/mm3 (4.5-11.0) 11/11/16 06:59 RBC 2.81 M/mm3 (3.65-5.03) L 11/11/16 06:59 Hgb 8.9 gm/dl (10.1-14.3) L 11/12/16 04:00 Hct 27.2 % (30.3-42.9) L 11/12/16 04:00 MCV 87 fl (79-97) 11/11/16 06:59 MCH 29 pg (28-32) 11/11/16 06:59 MCHC 33 % (30-34) 11/11/16 06:59 RDW 16.4 % (13.2-15.2) H 11/11/16 06:59 Plt Count 273 K/mm3 (140-440) 11/11/16 06:59 Lymph % (Auto) 22.6 % (13.4-35.0) 11/11/16 06:59 [place] % (Auto) 10.8 % (0.0-7.3) H 11/11/16 06:59 Eos % (Auto) 0.9 % (0.0-4.3) 11/11/16 06:59 Baso % (Auto) 0.8 % (0.0-1.8) 11/11/16 06:59 Lymph # 2.1 K/mm3 (1.2-5.4) 11/11/16 06:59 [place] # 1.0 K/mm3 (0.0-0.8) H 11/11/16 06:59 Eos # 0.1 K/mm3 (0.0-0.4) 11/11/16 06:59 Baso # 0.1 K/mm3 (0.0-0.1) 11/11/16 06:59 Add Manual Diff Complete 10/27/16 06:30 Total Counted 100 10/27/16 06:30 Seg Neutrophils % 64.9 % (40.0-70.0) 11/11/16 06:59 Seg Neuts % (Manual) 78.0 % (40.0-70.0) H 10/27/16 06:30 Band Neutrophils % 0 % 10/27/16 06:30 Lymphocytes % (Manual) 14.0 % (13.4-35.0) 10/27/16 06:30 Reactive Lymphs % (Man) 0 % 10/27/16 06:30 Monocytes % (Manual) 7.0 % (0.0-7.3) 10/27/16 06:30 Eosinophils % (Manual) 0 % (0.0-4.3) 10/27/16 06:30 Basophils % (Manual) 1.0 % (0.0-1.8) 10/27/16 06:30 Metamyelocytes % 0 % 10/27/16 06:30 Myelocytes % 0 % 10/27/16 06:30 Promyelocytes % 0 % 10/27/16 06:30 Blast Cells % 0 % 10/27/16 06:30 Nucleated RBC % 2.0 % (0.0-0.9) H 10/27/16 06:30 Seg Neutrophils # 5.9 K/mm3 (1.8-7.7) 11/11/16 06:59 Seg Neutrophils # Man 10.8 K/mm3 (1.8-7.7) H 10/27/16 06:30 Band Neutrophils # 0.0 K/mm3 10/27/16 06:30 Lymphocytes # (Manual) 1.9 K/mm3 (1.2-5.4) 10/27/16 06:30 Abs React Lymphs (Man) 0.0 K/mm3 10/27/16 06:30 Monocytes # (Manual) 1.0 K/mm3 (0.0-0.8) H 10/27/16 06:30 Eosinophils # (Manual) 0.0 K/mm3 (0.0-0.4) 10/27/16 06:30 Basophils # (Manual) 0.1 K/mm3 (0.0-0.1) 10/27/16 06:30 Metamyelocytes # 0.0 K/mm3 10/27/16 06:30 Myelocytes # 0.0 K/mm3 10/27/16 06:30 Promyelocytes # 0.0 K/mm3 10/27/16 06:30 Blast Cells # 0.0 K/mm3 10/27/16 06:30 Pathologist Review 09/13/16 04:00 WBC Morphology Not Reportable 10/27/16 06:30 Hypersegmented Neuts Not Reportable 10/27/16 06:30 Hyposegmented Neuts Not Reportable 10/27/16 06:30 Hypogranular Neuts Not Reportable 10/27/16 06:30 Smudge Cells Not Reportable 10/27/16 06:30 Toxic Granulation Not Reportable 10/27/16 06:30 Toxic Vacuolation Not Reportable 10/27/16 06:30 Dohle Bodies Not Reportable 10/27/16 06:30 Pelger-Huet Anomaly Not Reportable 10/27/16 06:30 Jasmina Rods Not Reportable 10/27/16 06:30 Platelet Estimate Cons 10/27/16 06:30 Clumped Platelets Not Reportable 10/27/16 06:30 Plt Clumps, EDTA Not Reportable 10/27/16 06:30 Large Platelets Few 10/27/16 06:30 Giant Platelets Not Reportable 10/27/16 06:30 Platelet Satelliting Not Reportable 10/27/16 06:30 Plt Morphology Comment Not Reportable 10/27/16 06:30 RBC Morphology Not Reportable 10/27/16 06:30 Dimorphic RBCs Not Reportable 10/27/16 06:30 Polychromasia Not Reportable 10/27/16 06:30 Hypochromasia Not Reportable 10/27/16 06:30 Poikilocytosis Not Reportable 10/27/16 06:30 Anisocytosis 1+ 10/27/16 06:30 Microcytosis Not Reportable 10/27/16 06:30 Macrocytosis Not Reportable 10/27/16 06:30 Spherocytes Not Reportable 10/27/16 06:30 Pappenheimer Bodies Not Reportable 10/27/16 06:30 Sickle Cells Not Reportable 10/27/16 06:30 Target Cells Not Reportable 10/27/16 06:30 Tear Drop Cells Not Reportable 10/27/16 06:30 Ovalocytes Not Reportable 10/27/16 06:30 Stomatocytes Few 10/06/16 03:50 Helmet Cells Not Reportable 10/27/16 06:30 Monet-[place] Bodies Not Reportable 10/27/16 06:30 Rugby Rings Not Reportable 10/27/16 06:30 [place] Cells Not Reportable 10/27/16 06:30 Bite Cells Not Reportable 10/27/16 06:30 Crenated Cell Not Reportable 10/27/16 06:30 Elliptocytes Not Reportable 10/27/16 06:30 Acanthocytes (Spur) Not Reportable 10/27/16 06:30 Rouleaux Not Reportable 10/27/16 06:30 Hemoglobin C Crystals Not Reportable 10/27/16 06:30 Schistocytes Not Reportable 10/27/16 06:30 Malaria parasites Not Reportable 10/27/16 06:30 ESR > 140.0 mm/Hr (0-20) 09/08/16 11:48 Jun Bodies Not Reportable 10/27/16 06:30 Hem Pathologist Commnt No 10/27/16 06:30 PT 14.9 Sec. (12.2-14.9) 11/11/16 09:50 INR 1.18 (0.87-1.13) H 11/11/16 09:50 APTT 33.0 Sec. (24.2-36.6) 10/09/16 03:45 Thrombin Time 16.8 Sec. (15.1-19.6) 09/03/16 00:10 Fibrinogen 750 mg/dl (211-480) H 09/08/16 11:48 Lupus Anticoagulant see below 09/12/16 09:59 LA PTT Baseline See scanned report 09/12/16 09:59 dRVVT Confirm Interp Positive (Negative) H 09/12/16 09:59 dRVVT Screen 50:50 See scanned report 09/12/16 09:59 dRVVT Mix Interpret See scanned report 09/12/16 09:59 Protein C Antigen 122 % (70-140) 09/08/16 15:35 Free Protein S 97 % normal (50-147) 09/08/16 15:35 Total Protein S 109 % (70-140) 09/08/16 15:35 Antithrombin III Ag 100 % (80-120) 09/08/16 15:35 Heparin Anti-Xa, Unfract Negative (Negative) 09/29/16 13:35 Factor V Activity 182 % (65-150) H 09/08/16 15:35 POC ABG pH 7.478 (7.35-7.45) H 11/08/16 23:37 POC ABG pCO2 34.0 (35-45) L 11/08/16 23:37 POC ABG pO2 50 (80-105) L 11/08/16 23:37 POC ABG HCO3 25.2 11/08/16 23:37 POC ABG Total CO2 26 11/08/16 23:37 POC ABG O2 Sat 88 11/08/16 23:37 POC ABG Base Excess 2 11/08/16 23:37 FiO2 28 % 11/08/16 23:37 Sodium 135 mmol/L (137-145) L 11/13/16 Unknown Potassium 3.8 mmol/L (3.6-5.0) 11/13/16 Unknown Chloride 95.2 mmol/L (98-107) L 11/13/16 Unknown Carbon Dioxide 22 mmol/L (22-30) 11/13/16 Unknown Anion Gap 22 mmol/L 11/13/16 Unknown BUN 52 mg/dL (7-17) H 11/13/16 Unknown Creatinine 2.2 mg/dL (0.7-1.2) H 11/13/16 Unknown Estimated GFR 29 ml/min 11/13/16 Unknown BUN/Creatinine Ratio 23.63 % 11/13/16 Unknown Glucose 100 mg/dL (65-100) 11/13/16 Unknown POC Glucose 120 (70-105) H 11/13/16 05:53 Osmolality 351 Mosm/kg 09/16/16 11:47 Lactic Acid 4.50 mmol/L (0.7-2.0) H* 09/28/16 07:25 Calcium 8.9 mg/dL (8.4-10.2) 11/13/16 Unknown Phosphorus 4.40 mg/dL (2.5-4.5) 11/07/16 06:30 Magnesium 2.20 mg/dL (1.7-2.3) 11/07/16 06:30 Total Bilirubin 0.20 mg/dL (0.1-1.2) 11/06/16 06:25 Direct Bilirubin 0.3 mg/dL (0-0.2) H 10/10/16 05:00 Indirect Bilirubin 0.1 mg/dL 10/10/16 05:00 AST 103 units/L (5-40) H 11/06/16 06:25 ALT 77 units/L (7-56) H 11/06/16 06:25 Alkaline Phosphatase 285 units/L (35-129) H 11/06/16 06:25 Ammonia 27.0 umol/L (25-60) 09/07/16 08:37 Lactate Dehydrogenase 196 units/L (91-180) H 11/11/16 06:59 Total Creatine Kinase 121 units/L (30-135) 09/29/16 20:12 CK-MB (CK-2) < 1.0 ng/mL (0.0-4.0) 09/29/16 20:12 CK-MB (CK-2) Rel Index 0.8 (0-4) 09/29/16 20:12 Troponin T 0.204 ng/mL (0.00-0.029) H* 09/29/16 20:12 C-Reactive Protein 11.40 mg/dL (0.00-1.30) H 11/05/16 13:25 Total Protein 6.1 g/dL (6.3-8.2) L 11/11/16 06:59 Albumin 1.8 g/dL (3.9-5) L 11/06/16 06:25 Albumin/Globulin Ratio 0.4 % 11/06/16 06:25 Prealbumin 0.180 g/L (0.200-0.400) L 11/06/16 06:25 Triglycerides 137 mg/dL (2-149) 09/29/16 20:12 Cholesterol 31 mg/dL (50-199) L 09/29/16 20:12 LDL Cholesterol Direct 4 mg/dL (50-130) L 09/29/16 20:12 HDL Cholesterol 3 mg/dL (40-59) L 09/29/16 20:12 Cholesterol/HDL Ratio 10.33 % 09/29/16 20:12 Angiotensin Convert Enz See scanned report 09/08/16 11:48 Renin 0.99 ng/mL/h (0.25-5.82) 10/07/16 10:56 Aldosterone <1 ng/dL () 10/07/16 10:56 Aldosterone/Renin Dir see below 10/07/16 10:56 Serotonin Release Assay See scanned report 09/29/16 13:35 TSH 1.010 mlU/mL (0.270-4.200) 09/07/16 08:37 HCG, Qual Negative (Negative) 09/03/16 00:10 Urine Color Yellow (Yellow) 11/05/16 13:09 Urine Turbidity Clear (Clear) 11/05/16 13:09 Urine pH 9.0 (5.0-7.0) H 11/05/16 13:09 Ur Specific [place] 1.011 (1.003-1.030) 11/05/16 13:09 Urine Protein 100 mg/dl mg/dL (Negative) 11/05/16 13:09 Urine Glucose (UA) Neg mg/dL (Negative) 11/05/16 13:09 Urine Ketones Neg mg/dL (Negative) 11/05/16 13:09 Urine Blood Neg (Negative) 11/05/16 13:09 Urine Nitrite Neg (Negative) 11/05/16 13:09 Urine Bilirubin Neg (Negative) 11/05/16 13:09 Urine Urobilinogen < 2.0 mg/dL (<2.0) 11/05/16 13:09 Ur Leukocyte Esterase Neg (Negative) 11/05/16 13:09 Urine WBC (Auto) 4.0 /HPF (0.0-6.0) 11/05/16 13:09 Urine RBC (Auto) 1.0 /HPF (0.0-6.0) 11/05/16 13:09 U Epithel Cells (Auto) 1.0 /HPF (0-13.0) 10/07/16 18:30 Urine Bacteria (Auto) 4+ /HPF (Negative) 11/05/16 13:09 Urine WBC Clumps 2+ /HPF 09/07/16 02:47 Hyaline Casts 4 /LPF 09/07/16 02:47 Urine Mucus Few /HPF 10/07/16 18:30 Urine Yeast (Budding) 3+ /HPF 10/07/16 18:30 Urine Eosinophils None seen (None Seen) 09/07/16 16:00 Urine Total Volume TNR 10/29/16 07:45 Urine Creatinine TNR 10/29/16 07:45 Height (in) TNR 10/29/16 07:45 Weight (lb) TNR 10/29/16 07:45 Creatinine Clearance TNR 10/29/16 07:45 Urine Sodium 36 mEq/L 09/16/16 19:19 Urine Total Protein 16 mg/dL (5-11.8) H 09/16/16 19:19 Vancomycin Trough 2.3 ug/mL (5.0-20.0) L 09/21/16 13:00 Random Vancomycin 24.7 ug/mL (0-40.0) 11/12/16 04:00 Urine Opiates Screen Presumptive negative 09/03/16 15:11 Urine Methadone Screen Presumptive positive 09/03/16 15:11 Ur Barbiturates Screen Presumptive positive 09/03/16 15:11 Ur Phencyclidine Scrn Presumptive negative 09/03/16 15:11 Ur Amphetamines Screen Presumptive negative 09/03/16 15:11 U Benzodiazepines Scrn Presumptive negative 09/03/16 15:11 Urine Cocaine Screen Presumptive negative 09/03/16 15:11 U Marijuana (THC) Screen Presumptive positive 09/03/16 15:11 Drugs of Abuse Note Disclamer 09/03/16 15:11 Rheumatoid Factor 24 IU/ml (0-13) H 09/08/16 11:48 SAHIL Screen Negative (Negative) 09/07/16 09:20 Proteinase 3 (PR3) Ab <1.0 AI (<1.0) 09/07/16 09:20 Myeloperoxidase Ab <1.0 AI (<1.0) 09/07/16 09:20 Sjogren's Antibody <1.0 AI (<1.0) 09/08/16 15:35 Scl-70 Scleroderma Ab <1.0 AI (<1.0) 09/08/16 15:35 Centromere B Antibody <1.0 AI (<1.0) 09/08/16 12:02 Heparin-induced Plt Ab Negative (Negative) 09/29/16 13:35 UF Heparin High Dose 11 % Release 09/29/16 13:35 SUDHIR UFH Low Dose 0.1 6 % Release 09/29/16 13:35 SUDHIR UFH Low Dose 0.5 8 % Release 09/29/16 13:35 Cardiolipid IgG Ab <14 GPL (<=14) 09/12/16 09:59 Cardiolipid IgA Ab <11 APL (<=11) 09/12/16 09:59 Cardiolipid IgM Ab <12 MPL (<=12) 09/12/16 09:59 Complement C3 148 mg/dL (90-180) 09/07/16 09:20 Complement C4 58 mg/dL (16-47) H 09/07/16 09:20 RPR Nonreactive (Nonreactive) 09/08/16 11:48 Hepatitis A IgM Ab Non-reactive (NonReactive) 09/24/16 14:40 Hep Bs Antigen Non-reactive (Negative) 09/24/16 14:40 Hep B Core IgM Ab Non-reactive (NonReactive) 09/24/16 14:40 Hepatitis C Antibody Non-reactive (NonReactive) 09/24/16 14:40 HIV 1&2 Antibody Rapid Non react (Non React) 09/08/16 11:48 HIV P24 Antigen Non react (Non React) 09/08/16 11:48 Miscellaneous Test Flexitest 1 H 11/05/16 13:25 Blood Type A POSITIVE 11/07/16 09:37 Antibody Screen Negative 11/07/16 09:37 DELORIS Antibody Screen Negative 09/25/16 10:30 Crossmatch See Detail 11/07/16 09:37
[2016-11-13] MEDS: COZAAR PO SCH (09:13)
[2016-11-13] MEDS: PROTONIX FEEDTUBE SCH (09:13)
[2016-11-13] MEDS: QUESTRAN PO SCH (09:13)
[2016-11-13] MEDS: MAXIPIME/NS 2 GM/100 ML 2 GM/100 ML BAG IV SCH (10:00)
--- NOTE | 2016-11-13 11:19 | Progress Note ---
Assessment and Plan (1) Acute respiratory failure with hypoxia Current Visit: Yes Status: Acute Plan to address problem: - continue aspiration precautions - continue to wean oxygen for MAP > 94% - continue bronchodilators and pulmonary toilet - s/p tracheostomy - continue scopolamine - ABG's prn at this point for increased work of breathing or other resp distress - will send for right thoracentesis re: moderate effusion with the hope that it aids RTC t-piece tolerance - follow thoracentesis studies (awaiting consent) - continue t-piece trials and shoot for RTC if tolerates especially post thoracentesis (2) Acute CVA (cerebrovascular accident) Current Visit: Yes Status: Acute Plan to address problem: - Left MCA teritory stroke - seen by neurology and prognosis for recovery of mental status guarded to poor - optimizing secondary prevention modalities now (BP, lipid anti-platelet therapy) - off systemic steroids now (started earlier for edema) - clinically mild improvement (3) Hypertensive emergency Current Visit: Yes Status: Acute Plan to address problem: - continue antihypertensives (on metoprolol, clonidine and cozaar) - use prn hydralazine - resume sedation while on MVS (4) Obesity (BMI 35.0-39.9 without comorbidity) Current Visit: Yes Status: Chronic Plan to address problem: - now at goal rate on tube feeding - stopped TPN (5) Type 2 diabetes mellitus Current Visit: Yes Status: Chronic Qualifiers: Diabetes mellitus complication status: D Diabetes mellitus complication detail: D Diabetic retinopathy severity: D Proliferative retinopathy type: P Diabetes mellitus macular edema: D Diabetes mellitus snf insulin use : D Laterality: L Chronic kidney disease stage: C Plan to address problem: - continue SSI - discontinued lantus prior re: hypoglycemia - target BG's <180 mg/dl (6) Leukocytosis (leucocytosis) Current Visit: Yes Status: Acute Qualifiers: Leukocytosis type: leukemoid reaction Qualified Code(s): D72.823 - Leukemoid reaction Plan to address problem: - improving - see sepsis section below (7) Agitation Current Visit: Yes Status: Acute Plan to address problem: - prn sedation / analgesia - tapered off seroquel for now (8) Atrial fibrillation Current Visit: Yes Status: Acute Qualifiers: Atrial fibrillation type: A Plan to address problem: - off amiodarone - continue p.o. metoprolol scheduled at 50mg q6h and adjust as necessary (9) JUANITA (acute kidney injury) Current Visit: Yes Status: Acute Plan to address problem: - on Dialysis now - continue HD/UF per nephrology recommendations - s/p tunnelled vas-cath - HD/UF -- (10) Pyrexia of unknown origin Current Visit: Yes Status: Acute Plan to address problem: - dopplers negative for DVT - continue to treat with Anti-infectives (11) Severe sepsis Current Visit: Yes Status: Acute Plan to address problem: - resume vasopressors for MAP < 60mmHg not responsive to volume - continue anti-infectives per ID recs - VRE in urine noted; ? colonizer at this point - continue contact precautions - PSAR noted on trach aspirate from 11/07/16 (? Colonizer) - catheter tip however with >15CFU GNR growing now and may well be same organism - complete AB's at stop dates set per ID recs (12) Emesis Current Visit: Yes Status: Acute Qualifiers: Vomiting type: V Vomiting Intractability: V Nausea presence: N Plan to address problem: - s/p surgical repair of gastric perforation - continue TPN for now - follow surgery recommendations re: feeding and new PEG tube - now tolerating tube feeds at goal rate (13) Dysphagia, oropharyngeal Current Visit: Yes Status: Acute Plan to address problem: - discussed with surgeon and she will be best served with continued treatment with anti-infectives as well as time for the GI tract and her wounds to heal before replacing the PEG tube - continue DHT feeding (14) Discharge planning issues Current Visit: Yes Status: Acute Plan to address problem: - she remains critically ill on life sustaining interventions including MVS and at risk for further acute deterioration including - if can stay off MVS then can transfer to medical floor shortly .....30' CCT ....terminal carman prognosis remains is guarded Subjective Date of service: 11/13/16 Principal diagnosis: Acute resp failure on MVS; S/P Acute CVA; Acute Encephalopathy; JUANITA Interval history: Seen and examined at bedside; 24 hour events reviewed; nursing and respiratory care staff consulted; no adverse overnight events reported to me; brother visited and care plan discussed; tolerated only 2 hours on T-piece today; AMS is persistent; no emesis or overt aspiration Objective Vital Signs - 12hr 11/12/16 11/13/16 11/13/16 23:31 00:00 00:31 Temperature 99.9 F H Pulse Rate 108 H 108 H 107 H Pulse Rate [ 119 H From Monitor] Respiratory 21 20 22 Rate Blood Pressure 189/99 171/94 171/94 O2 Sat by Pulse 100 99 99 Oximetry O2 Sat by Pulse Oximetry [ Assessment] 11/13/16 11/13/16 11/13/16 01:00 01:31 02:00 Temperature Pulse Rate 105 H 108 H 113 H Pulse Rate [ From Monitor] Respiratory 21 21 23 Rate Blood Pressure 175/94 175/94 188/101 O2 Sat by Pulse 100 100 100 Oximetry O2 Sat by Pulse Oximetry [ Assessment] 11/13/16 11/13/16 11/13/16 02:31 03:00 03:07 Temperature Pulse Rate 111 H 113 H 114 H Pulse Rate [ From Monitor] Respiratory 21 23 Rate Blood Pressure 188/101 194/103 194/103 O2 Sat by Pulse 100 99 100 Oximetry O2 Sat by Pulse Oximetry [ Assessment] 11/13/16 11/13/16 11/13/16 03:31 03:53 04:00 Temperature 100.3 F H 100.3 F H Pulse Rate 113 H 115 H Pulse Rate [ 118 H From Monitor] Respiratory 21 22 Rate Blood Pressure 194/103 209/114 O2 Sat by Pulse 100 99 Oximetry O2 Sat by Pulse Oximetry [ Assessment] 11/13/16 11/13/16 11/13/16 04:31 05:00 05:31 Temperature Pulse Rate 115 H 115 H 121 H Pulse Rate [ From Monitor] Respiratory 20 20 21 Rate Blood Pressure 213/113 192/101 192/101 O2 Sat by Pulse 100 100 Oximetry O2 Sat by Pulse Oximetry [ Assessment] 11/13/16 11/13/16 11/13/16 06:00 06:02 06:31 Temperature Pulse Rate 119 H 119 H 121 H Pulse Rate [ From Monitor] Respiratory 25 H 21 Rate Blood Pressure 189/105 189/105 189/105 O2 Sat by Pulse 98 Oximetry O2 Sat by Pulse Oximetry [ Assessment] 11/13/16 11/13/16 11/13/16 07:00 07:31 07:57 Temperature 97.7 F Pulse Rate 118 H 114 H Pulse Rate [ From Monitor] Respiratory 20 21 Rate Blood Pressure 204/104 204/104 O2 Sat by Pulse 99 99 Oximetry O2 Sat by Pulse Oximetry [ Assessment] 11/13/16 11/13/16 11/13/16 08:00 08:30 08:31 Temperature Pulse Rate 113 H 100 H Pulse Rate [ From Monitor] Respiratory 20 15 Rate Blood Pressure 204/104 201/114 129/82 O2 Sat by Pulse 99 100 Oximetry O2 Sat by Pulse Oximetry [ Assessment] 11/13/16 11/13/16 11/13/16 08:35 08:45 09:00 Temperature Pulse Rate 118 H Pulse Rate [ From Monitor] Respiratory 33 H Rate Blood Pressure 196/103 O2 Sat by Pulse 100 100 Oximetry O2 Sat by Pulse 100 Oximetry [ Assessment] 11/13/16 11/13/16 11/13/16 09:13 09:31 10:00 Temperature Pulse Rate 119 H 113 H 111 H Pulse Rate [ From Monitor] Respiratory 28 H 32 H Rate Blood Pressure 196/103 196/103 195/105 O2 Sat by Pulse 100 100 Oximetry O2 Sat by Pulse Oximetry [ Assessment] Constitutional: no acute distress, other (eyes open; tracking movements) Eyes: non-icteric, other (tracheostomy tube in midline of neck) ENT: oropharynx moist Neck: supple, no lymphadenopathy Effort: mildly labored Ascultation: Bilateral: diminished breath sounds (bases), rales Cardiovascular: regular rate and rhythm Gastrointestinal: hypoactive bowel sounds, soft, non-tender, non-distended, other (RLQ stomas with colostomy bags) Integumentary: other (healing back burn-like injury) Extremities: no cyanosis, no edema, pulses normal, no ischemia or petechiae Neurologic: pupils equal and round, other (sedated) Psychiatric: other (unable to assess) CBC and BMP: 11/12/16 04:00 11/13/16 Unknown ABG, PT/INR, D-dimer: ABG POC ABG pH 7.478 (7.35-7.45) H 11/08/16 23:37 POC ABG pCO2 34.0 (35-45) L 11/08/16 23:37 POC ABG pO2 50 (80-105) L 11/08/16 23:37 POC ABG HCO3 25.2 11/08/16 23:37 POC ABG Total CO2 26 11/08/16 23:37 POC ABG O2 Sat 88 11/08/16 23:37 PT/INR, D-dimer PT 14.9 Sec. (12.2-14.9) 11/11/16 09:50 INR 1.18 (0.87-1.13) H 11/11/16 09:50 Abnormal lab findings: Abnormal Labs 09/03/16 09/03/16 09/03/16 12:12 15:07 16:20 WBC RBC Hgb Hct MCV MCH MCHC RDW Plt Count Lymph % (Auto) [place] % (Auto) Lymph # [place] # Baso # Seg Neutrophils % Seg Neuts % (Manual) Lymphocytes % (Manual) Monocytes % (Manual) Eosinophils % (Manual) Basophils % (Manual) Nucleated RBC % Seg Neutrophils # Seg Neutrophils # Man Lymphocytes # (Manual) Monocytes # (Manual) Eosinophils # (Manual) PT INR Fibrinogen dRVVT Confirm Interp Factor V Activity POC ABG pH 7.452 H POC ABG pCO2 POC ABG pO2 Sodium Potassium Chloride Carbon Dioxide BUN Creatinine Glucose POC Glucose 178 H Lactic Acid Calcium Phosphorus 2.20 L Magnesium 1.60 L Direct Bilirubin AST ALT Alkaline Phosphatase Lactate Dehydrogenase Troponin T C-Reactive Protein Total Protein Albumin Prealbumin Triglycerides Cholesterol LDL Cholesterol Direct HDL Cholesterol Urine pH Urine WBC (Auto) Urine Creatinine Urine Total Protein Vancomycin Trough Rheumatoid Factor Complement C4 Miscellaneous Test Crossmatch 09/03/16 09/03/16 09/03/16 17:57 17:58 23:50 WBC RBC Hgb Hct MCV MCH MCHC RDW Plt Count Lymph % (Auto) [place] % (Auto) Lymph # [place] # Baso # Seg Neutrophils % Seg Neuts % (Manual) Lymphocytes % (Manual) Monocytes % (Manual) Eosinophils % (Manual) Basophils % (Manual) Nucleated RBC % Seg Neutrophils # Seg Neutrophils # Man Lymphocytes # (Manual) Monocytes # (Manual) Eosinophils # (Manual) PT INR Fibrinogen dRVVT Confirm Interp Factor V Activity POC ABG pH POC ABG pCO2 POC ABG pO2 Sodium Potassium Chloride Carbon Dioxide BUN Creatinine Glucose POC Glucose 162 H 145 H Lactic Acid Calcium Phosphorus 2.30 L Magnesium Direct Bilirubin AST ALT Alkaline Phosphatase Lactate Dehydrogenase Troponin T C-Reactive Protein Total Protein Albumin Prealbumin Triglycerides Cholesterol LDL Cholesterol Direct HDL Cholesterol Urine pH Urine WBC (Auto) Urine Creatinine Urine Total Protein Vancomycin Trough Rheumatoid Factor Complement C4 Miscellaneous Test Crossmatch 09/04/16 09/04/16 09/04/16 03:31 03:31 05:42 WBC RBC Hgb 9.7 L D Hct MCV 72 L MCH 23 L MCHC RDW 17.5 H Plt Count Lymph % (Auto) 11.1 L [place] % (Auto) Lymph # [place] # Baso # Seg Neutrophils % 84.3 H Seg Neuts % (Manual) Lymphocytes % (Manual) Monocytes % (Manual) Eosinophils % (Manual) Basophils % (Manual) Nucleated RBC % Seg Neutrophils # 8.9 H Seg Neutrophils # Man Lymphocytes # (Manual) Monocytes # (Manual) Eosinophils # (Manual) PT INR Fibrinogen dRVVT Confirm Interp Factor V Activity POC ABG pH POC ABG pCO2 POC ABG pO2 Sodium 135 L Potassium 2.9 L* Chloride 97.2 L Carbon Dioxide 19 L BUN Creatinine 1.7 H Glucose 170 H POC Glucose 152 H Lactic Acid Calcium Phosphorus Magnesium Direct Bilirubin AST ALT Alkaline Phosphatase Lactate Dehydrogenase Troponin T C-Reactive Protein Total Protein Albumin Prealbumin Triglycerides 160 H Cholesterol LDL Cholesterol Direct HDL Cholesterol 31 L Urine pH Urine WBC (Auto) Urine Creatinine Urine Total Protein Vancomycin Trough Rheumatoid Factor Complement C4 Miscellaneous Test Crossmatch 09/04/16 09/04/16 09/04/16 11:34 17:46 23:29 WBC RBC Hgb Hct MCV MCH MCHC RDW Plt Count Lymph % (Auto) [place] % (Auto) Lymph # [place] # Baso # Seg Neutrophils % Seg Neuts % (Manual) Lymphocytes % (Manual) Monocytes % (Manual) Eosinophils % (Manual) Basophils % (Manual) Nucleated RBC % Seg Neutrophils # Seg Neutrophils # Man Lymphocytes # (Manual) Monocytes # (Manual) Eosinophils # (Manual) PT INR Fibrinogen dRVVT Confirm Interp Factor V Activity POC ABG pH POC ABG pCO2 POC ABG pO2 Sodium Potassium Chloride Carbon Dioxide BUN Creatinine Glucose POC Glucose 165 H 210 H 139 H Lactic Acid Calcium Phosphorus Magnesium Direct Bilirubin AST ALT Alkaline Phosphatase Lactate Dehydrogenase Troponin T C-Reactive Protein Total Protein Albumin Prealbumin Triglycerides Cholesterol LDL Cholesterol Direct HDL Cholesterol Urine pH Urine WBC (Auto) Urine Creatinine Urine Total Protein Vancomycin Trough Rheumatoid Factor Complement C4 Miscellaneous Test Crossmatch 09/05/16 09/05/16 09/05/16 04:05 04:05 05:38 WBC RBC Hgb Hct MCV 76 L D MCH 23 L MCHC RDW 17.8 H Plt Count Lymph % (Auto) [place] % (Auto) Lymph # [place] # Baso # Seg Neutrophils % Seg Neuts % (Manual) Lymphocytes % (Manual) Monocytes % (Manual) Eosinophils % (Manual) Basophils % (Manual) Nucleated RBC % Seg Neutrophils # Seg Neutrophils # Man Lymphocytes # (Manual) Monocytes # (Manual) Eosinophils # (Manual) PT INR Fibrinogen dRVVT Confirm Interp Factor V Activity POC ABG pH POC ABG pCO2 POC ABG pO2 Sodium 134 L Potassium Chloride Carbon Dioxide 18 L BUN Creatinine 1.8 H Glucose 192 H POC Glucose 175 H Lactic Acid Calcium Phosphorus Magnesium Direct Bilirubin AST ALT Alkaline Phosphatase Lactate Dehydrogenase Troponin T C-Reactive Protein Total Protein Albumin Prealbumin Triglycerides Cholesterol LDL Cholesterol Direct HDL Cholesterol Urine pH Urine WBC (Auto) Urine Creatinine Urine Total Protein Vancomycin Trough Rheumatoid Factor Complement C4 Miscellaneous Test Crossmatch 09/05/16 09/05/16 09/05/16 11:38 17:48 23:22 WBC RBC Hgb Hct MCV MCH MCHC RDW Plt Count Lymph % (Auto) [place] % (Auto) Lymph # [place] # Baso # Seg Neutrophils % Seg Neuts % (Manual) Lymphocytes % (Manual) Monocytes % (Manual) Eosinophils % (Manual) Basophils % (Manual) Nucleated RBC % Seg Neutrophils # Seg Neutrophils # Man Lymphocytes # (Manual) Monocytes # (Manual) Eosinophils # (Manual) PT INR Fibrinogen dRVVT Confirm Interp Factor V Activity POC ABG pH POC ABG pCO2 POC ABG pO2 Sodium Potassium Chloride Carbon Dioxide BUN Creatinine Glucose POC Glucose 164 H 186 H 195 H Lactic Acid Calcium Phosphorus Magnesium Direct Bilirubin AST ALT Alkaline Phosphatase Lactate Dehydrogenase Troponin T C-Reactive Protein Total Protein Albumin Prealbumin Triglycerides Cholesterol LDL Cholesterol Direct HDL Cholesterol Urine pH Urine WBC (Auto) Urine Creatinine Urine Total Protein Vancomycin Trough Rheumatoid Factor Complement C4 Miscellaneous Test Crossmatch 09/06/16 09/06/16 09/06/16 04:12 05:59 07:32 WBC RBC Hgb Hct MCV MCH MCHC RDW Plt Count Lymph % (Auto) [place] % (Auto) Lymph # [place] # Baso # Seg Neutrophils % Seg Neuts % (Manual) Lymphocytes % (Manual) Monocytes % (Manual) Eosinophils % (Manual) Basophils % (Manual) Nucleated RBC % Seg Neutrophils # Seg Neutrophils # Man Lymphocytes # (Manual) Monocytes # (Manual) Eosinophils # (Manual) PT INR Fibrinogen dRVVT Confirm Interp Factor V Activity POC ABG pH 7.514 H POC ABG pCO2 29.1 L POC ABG pO2 72 L Sodium 133 L Potassium 3.4 L Chloride 94.9 L Carbon Dioxide 19 L BUN 30 H Creatinine 2.1 H Glucose 139 H POC Glucose 146 H Lactic Acid Calcium Phosphorus Magnesium Direct Bilirubin AST ALT Alkaline Phosphatase Lactate Dehydrogenase Troponin T C-Reactive Protein Total Protein Albumin Prealbumin Triglycerides Cholesterol LDL Cholesterol Direct HDL Cholesterol Urine pH Urine WBC (Auto) Urine Creatinine Urine Total Protein Vancomycin Trough Rheumatoid Factor Complement C4 Miscellaneous Test Crossmatch 09/06/16 09/06/16 09/06/16 11:57 17:58 19:02 WBC RBC Hgb Hct MCV MCH MCHC RDW Plt Count Lymph % (Auto) [place] % (Auto) Lymph # [place] # Baso # Seg Neutrophils % Seg Neuts % (Manual) Lymphocytes % (Manual) Monocytes % (Manual) Eosinophils % (Manual) Basophils % (Manual) Nucleated RBC % Seg Neutrophils # Seg Neutrophils # Man Lymphocytes # (Manual) Monocytes # (Manual) Eosinophils # (Manual) PT INR Fibrinogen dRVVT Confirm Interp Factor V Activity POC ABG pH 7.465 H POC ABG pCO2 32.0 L POC ABG pO2 Sodium Potassium Chloride Carbon Dioxide BUN Creatinine Glucose POC Glucose 165 H 160 H Lactic Acid Calcium Phosphorus Magnesium Direct Bilirubin AST ALT Alkaline Phosphatase Lactate Dehydrogenase Troponin T C-Reactive Protein Total Protein Albumin Prealbumin Triglycerides Cholesterol LDL Cholesterol Direct HDL Cholesterol Urine pH Urine WBC (Auto) Urine Creatinine Urine Total Protein Vancomycin Trough Rheumatoid Factor Complement C4 Miscellaneous Test Crossmatch 09/06/16 09/07/16 09/07/16 23:45 02:47 02:47 WBC RBC Hgb Hct MCV MCH MCHC RDW Plt Count Lymph % (Auto) [place] % (Auto) Lymph # [place] # Baso # Seg Neutrophils % Seg Neuts % (Manual) Lymphocytes % (Manual) Monocytes % (Manual) Eosinophils % (Manual) Basophils % (Manual) Nucleated RBC % Seg Neutrophils # Seg Neutrophils # Man Lymphocytes # (Manual) Monocytes # (Manual) Eosinophils # (Manual) PT INR Fibrinogen dRVVT Confirm Interp Factor V Activity POC ABG pH POC ABG pCO2 POC ABG pO2 Sodium Potassium Chloride Carbon Dioxide BUN Creatinine Glucose POC Glucose 204 H Lactic Acid Calcium Phosphorus Magnesium Direct Bilirubin AST ALT Alkaline Phosphatase Lactate Dehydrogenase Troponin T C-Reactive Protein Total Protein Albumin Prealbumin Triglycerides Cholesterol LDL Cholesterol Direct HDL Cholesterol Urine pH Urine WBC (Auto) 68.0 H Urine Creatinine 106.1 H Urine Total Protein Vancomycin Trough Rheumatoid Factor Complement C4 Miscellaneous Test Crossmatch 09/07/16 09/07/16 09/07/16 04:50 06:19 06:39 WBC RBC Hgb Hct MCV MCH MCHC RDW Plt Count Lymph % (Auto) [place] % (Auto) Lymph # [place] # Baso # Seg Neutrophils % Seg Neuts % (Manual) Lymphocytes % (Manual) Monocytes % (Manual) Eosinophils % (Manual) Basophils % (Manual) Nucleated RBC % Seg Neutrophils # Seg Neutrophils # Man Lymphocytes # (Manual) Monocytes # (Manual) Eosinophils # (Manual) PT INR Fibrinogen dRVVT Confirm Interp Factor V Activity POC ABG pH 7.457 H POC ABG pCO2 32.1 L POC ABG pO2 76 L Sodium 132 L Potassium Chloride 94.7 L Carbon Dioxide BUN 53 H Creatinine 2.9 H Glucose 151 H POC Glucose 149 H Lactic Acid Calcium Phosphorus Magnesium Direct Bilirubin AST ALT Alkaline Phosphatase Lactate Dehydrogenase Troponin T C-Reactive Protein Total Protein Albumin Prealbumin Triglycerides Cholesterol LDL Cholesterol Direct HDL Cholesterol Urine pH Urine WBC (Auto) Urine Creatinine Urine Total Protein Vancomycin Trough Rheumatoid Factor Complement C4 Miscellaneous Test Crossmatch 09/07/16 09/07/16 09/07/16 09:20 11:43 11:43 WBC 19.4 H RBC Hgb 8.3 L Hct 26.4 L D MCV 72 L D MCH 22 L MCHC RDW 17.9 H Plt Count Lymph % (Auto) 8.5 L [place] % (Auto) Lymph # [place] # 1.0 H Baso # Seg Neutrophils % 85.8 H Seg Neuts % (Manual) Lymphocytes % (Manual) Monocytes % (Manual) Eosinophils % (Manual) Basophils % (Manual) Nucleated RBC % Seg Neutrophils # 16.6 H Seg Neutrophils # Man Lymphocytes # (Manual) Monocytes # (Manual) Eosinophils # (Manual) PT INR Fibrinogen dRVVT Confirm Interp Factor V Activity POC ABG pH POC ABG pCO2 POC ABG pO2 Sodium 134 L Potassium Chloride 97.2 L Carbon Dioxide 20 L BUN 58 H Creatinine 2.9 H Glucose 147 H POC Glucose Lactic Acid Calcium Phosphorus 2.40 L Magnesium 2.40 H Direct Bilirubin AST ALT Alkaline Phosphatase Lactate Dehydrogenase Troponin T C-Reactive Protein Total Protein 5.8 L Albumin 2.2 L Prealbumin Triglycerides Cholesterol LDL Cholesterol Direct HDL Cholesterol Urine pH Urine WBC (Auto) Urine Creatinine Urine Total Protein Vancomycin Trough Rheumatoid Factor Complement C4 58 H Miscellaneous Test Crossmatch 09/07/16 09/07/16 09/07/16 11:50 16:00 17:31 WBC RBC Hgb Hct MCV MCH MCHC RDW Plt Count Lymph % (Auto) [place] % (Auto) Lymph # [place] # Baso # Seg Neutrophils % Seg Neuts % (Manual) Lymphocytes % (Manual) Monocytes % (Manual) Eosinophils % (Manual) Basophils % (Manual) Nucleated RBC % Seg Neutrophils # Seg Neutrophils # Man Lymphocytes # (Manual) Monocytes # (Manual) Eosinophils # (Manual) PT INR Fibrinogen dRVVT Confirm Interp Factor V Activity POC ABG pH POC ABG pCO2 POC ABG pO2 158 H Sodium Potassium Chloride Carbon Dioxide BUN Creatinine Glucose POC Glucose 175 H Lactic Acid Calcium Phosphorus Magnesium Direct Bilirubin AST ALT Alkaline Phosphatase Lactate Dehydrogenase Troponin T C-Reactive Protein Total Protein Albumin Prealbumin Triglycerides Cholesterol LDL Cholesterol Direct HDL Cholesterol Urine pH Urine WBC (Auto) Urine Creatinine 66.3 H Urine Total Protein Vancomycin Trough Rheumatoid Factor Complement C4 Miscellaneous Test Crossmatch 09/07/16 09/08/16 09/08/16 23:50 05:46 06:18 WBC 17.8 H RBC 3.58 L Hgb 8.1 L Hct 25.5 L MCV 71 L MCH 23 L MCHC RDW 18.4 H Plt Count Lymph % (Auto) [place] % (Auto) Lymph # [place] # Baso # Seg Neutrophils % Seg Neuts % (Manual) 92.0 H Lymphocytes % (Manual) 6.0 L Monocytes % (Manual) Eosinophils % (Manual) Basophils % (Manual) Nucleated RBC % Seg Neutrophils # Seg Neutrophils # Man 16.4 H Lymphocytes # (Manual) 1.1 L Monocytes # (Manual) Eosinophils # (Manual) PT INR Fibrinogen dRVVT Confirm Interp Factor V Activity POC ABG pH POC ABG pCO2 34.3 L POC ABG pO2 71 L Sodium Potassium Chloride Carbon Dioxide BUN Creatinine Glucose POC Glucose 216 H Lactic Acid Calcium Phosphorus Magnesium Direct Bilirubin AST ALT Alkaline Phosphatase Lactate Dehydrogenase Troponin T C-Reactive Protein Total Protein Albumin Prealbumin Triglycerides Cholesterol LDL Cholesterol Direct HDL Cholesterol Urine pH Urine WBC (Auto) Urine Creatinine Urine Total Protein Vancomycin Trough Rheumatoid Factor Complement C4 Miscellaneous Test Crossmatch 09/08/16 09/08/16 09/08/16 06:18 06:51 10:55 WBC RBC Hgb Hct MCV MCH MCHC RDW Plt Count Lymph % (Auto) [place] % (Auto) Lymph # [place] # Baso # Seg Neutrophils % Seg Neuts % (Manual) Lymphocytes % (Manual) Monocytes % (Manual) Eosinophils % (Manual) Basophils % (Manual) Nucleated RBC % Seg Neutrophils # Seg Neutrophils # Man Lymphocytes # (Manual) Monocytes # (Manual) Eosinophils # (Manual) PT INR Fibrinogen dRVVT Confirm Interp Factor V Activity POC ABG pH POC ABG pCO2 POC ABG pO2 Sodium 133 L Potassium Chloride 96.9 L Carbon Dioxide 20 L BUN 63 H Creatinine 2.7 H Glucose 195 H POC Glucose 204 H 169 H Lactic Acid Calcium Phosphorus Magnesium Direct Bilirubin AST ALT Alkaline Phosphatase Lactate Dehydrogenase Troponin T C-Reactive Protein Total Protein Albumin Prealbumin Triglycerides Cholesterol LDL Cholesterol Direct HDL Cholesterol Urine pH Urine WBC (Auto) Urine Creatinine Urine Total Protein Vancomycin Trough Rheumatoid Factor Complement C4 Miscellaneous Test Crossmatch 09/08/16 09/08/16 09/08/16 11:48 11:48 11:48 WBC RBC Hgb Hct MCV MCH MCHC RDW Plt Count Lymph % (Auto) [place] % (Auto) Lymph # [place] # Baso # Seg Neutrophils % Seg Neuts % (Manual) Lymphocytes % (Manual) Monocytes % (Manual) Eosinophils % (Manual) Basophils % (Manual) Nucleated RBC % Seg Neutrophils # Seg Neutrophils # Man Lymphocytes # (Manual) Monocytes # (Manual) Eosinophils # (Manual) PT INR Fibrinogen 750 H dRVVT Confirm Interp Factor V Activity POC ABG pH POC ABG pCO2 POC ABG pO2 Sodium Potassium Chloride Carbon Dioxide BUN Creatinine Glucose POC Glucose Lactic Acid Calcium Phosphorus Magnesium Direct Bilirubin AST ALT Alkaline Phosphatase Lactate Dehydrogenase Troponin T C-Reactive Protein 15.70 H Total Protein Albumin Prealbumin Triglycerides Cholesterol LDL Cholesterol Direct HDL Cholesterol Urine pH Urine WBC (Auto) Urine Creatinine Urine Total Protein Vancomycin Trough Rheumatoid Factor 24 H Complement C4 Miscellaneous Test Crossmatch 09/08/16 09/08/16 09/09/16 15:35 18:25 00:24 WBC RBC Hgb Hct MCV MCH MCHC RDW Plt Count Lymph % (Auto) [place] % (Auto) Lymph # [place] # Baso # Seg Neutrophils % Seg Neuts % (Manual) Lymphocytes % (Manual) Monocytes % (Manual) Eosinophils % (Manual) Basophils % (Manual) Nucleated RBC % Seg Neutrophils # Seg Neutrophils # Man Lymphocytes # (Manual) Monocytes # (Manual) Eosinophils # (Manual) PT INR Fibrinogen dRVVT Confirm Interp Factor V Activity 182 H POC ABG pH POC ABG pCO2 POC ABG pO2 Sodium Potassium Chloride Carbon Dioxide BUN Creatinine Glucose POC Glucose 184 H 216 H Lactic Acid Calcium Phosphorus Magnesium Direct Bilirubin AST ALT Alkaline Phosphatase Lactate Dehydrogenase Troponin T C-Reactive Protein Total Protein Albumin Prealbumin Triglycerides Cholesterol LDL Cholesterol Direct HDL Cholesterol Urine pH Urine WBC (Auto) Urine Creatinine Urine Total Protein Vancomycin Trough Rheumatoid Factor Complement C4 Miscellaneous Test Crossmatch 09/09/16 09/09/16 09/09/16 03:00 03:00 04:04 WBC 27.9 H RBC Hgb 8.7 L Hct 28.1 L MCV 72 L MCH 22 L MCHC RDW 18.4 H Plt Count 485 H Lymph % (Auto) [place] % (Auto) Lymph # [place] # Baso # Seg Neutrophils % Seg Neuts % (Manual) 77.0 H Lymphocytes % (Manual) 9.0 L Monocytes % (Manual) Eosinophils % (Manual) Basophils % (Manual) Nucleated RBC % Seg Neutrophils # Seg Neutrophils # Man 21.5 H Lymphocytes # (Manual) Monocytes # (Manual) 2.0 H Eosinophils # (Manual) PT INR Fibrinogen dRVVT Confirm Interp Factor V Activity POC ABG pH POC ABG pCO2 POC ABG pO2 121 H Sodium 135 L Potassium Chloride 96.3 L Carbon Dioxide 21 L BUN 83 H Creatinine 3.0 H Glucose 135 H POC Glucose Lactic Acid Calcium Phosphorus Magnesium Direct Bilirubin AST ALT Alkaline Phosphatase Lactate Dehydrogenase Troponin T C-Reactive Protein Total Protein Albumin Prealbumin Triglycerides Cholesterol LDL Cholesterol Direct HDL Cholesterol Urine pH Urine WBC (Auto) Urine Creatinine Urine Total Protein Vancomycin Trough Rheumatoid Factor Complement C4 Miscellaneous Test Crossmatch 09/09/16 09/09/16 09/09/16 05:41 11:55 14:13 WBC RBC Hgb Hct MCV MCH MCHC RDW Plt Count Lymph % (Auto) [place] % (Auto) Lymph # [place] # Baso # Seg Neutrophils % Seg Neuts % (Manual) Lymphocytes % (Manual) Monocytes % (Manual) Eosinophils % (Manual) Basophils % (Manual) Nucleated RBC % Seg Neutrophils # Seg Neutrophils # Man Lymphocytes # (Manual) Monocytes # (Manual) Eosinophils # (Manual) PT INR Fibrinogen dRVVT Confirm Interp Factor V Activity POC ABG pH POC ABG pCO2 POC ABG pO2 Sodium Potassium Chloride Carbon Dioxide BUN Creatinine Glucose POC Glucose 155 H 186 H Lactic Acid Calcium Phosphorus Magnesium Direct Bilirubin AST ALT Alkaline Phosphatase Lactate Dehydrogenase Troponin T C-Reactive Protein Total Protein Albumin Prealbumin Triglycerides Cholesterol LDL Cholesterol Direct HDL Cholesterol Urine pH Urine WBC (Auto) 25.0 H Urine Creatinine Urine Total Protein Vancomycin Trough Rheumatoid Factor Complement C4 Miscellaneous Test Crossmatch 09/09/16 09/09/16 09/10/16 17:33 23:13 05:09 WBC RBC Hgb Hct MCV MCH MCHC RDW Plt Count Lymph % (Auto) [place] % (Auto) Lymph # [place] # Baso # Seg Neutrophils % Seg Neuts % (Manual) Lymphocytes % (Manual) Monocytes % (Manual) Eosinophils % (Manual) Basophils % (Manual) Nucleated RBC % Seg Neutrophils # Seg Neutrophils # Man Lymphocytes # (Manual) Monocytes # (Manual) Eosinophils # (Manual) PT INR Fibrinogen dRVVT Confirm Interp Factor V Activity POC ABG pH POC ABG pCO2 POC ABG pO2 74 L Sodium Potassium Chloride Carbon Dioxide BUN Creatinine Glucose POC Glucose 211 H 215 H Lactic Acid Calcium Phosphorus Magnesium Direct Bilirubin AST ALT Alkaline Phosphatase Lactate Dehydrogenase Troponin T C-Reactive Protein Total Protein Albumin Prealbumin Triglycerides Cholesterol LDL Cholesterol Direct HDL Cholesterol Urine pH Urine WBC (Auto) Urine Creatinine Urine Total Protein Vancomycin Trough Rheumatoid Factor Complement C4 Miscellaneous Test Crossmatch 09/10/16 09/10/16 09/10/16 05:17 05:17 11:31 WBC 15.8 H RBC 3.25 L Hgb 7.3 L Hct 22.9 L MCV 71 L MCH 23 L MCHC RDW 18.4 H Plt Count Lymph % (Auto) [place] % (Auto) Lymph # [place] # Baso # Seg Neutrophils % Seg Neuts % (Manual) 91.0 H Lymphocytes % (Manual) 4.0 L Monocytes % (Manual) Eosinophils % (Manual) Basophils % (Manual) Nucleated RBC % Seg Neutrophils # Seg Neutrophils # Man 14.4 H Lymphocytes # (Manual) 0.6 L Monocytes # (Manual) Eosinophils # (Manual) PT INR Fibrinogen dRVVT Confirm Interp Factor V Activity POC ABG pH POC ABG pCO2 POC ABG pO2 Sodium Potassium Chloride Carbon Dioxide 21 L BUN 93 H Creatinine 2.9 H Glucose 146 H POC Glucose 188 H Lactic Acid Calcium 8.1 L Phosphorus Magnesium Direct Bilirubin AST ALT Alkaline Phosphatase Lactate Dehydrogenase Troponin T C-Reactive Protein Total Protein Albumin Prealbumin Triglycerides Cholesterol LDL Cholesterol Direct HDL Cholesterol Urine pH Urine WBC (Auto) Urine Creatinine Urine Total Protein Vancomycin Trough Rheumatoid Factor Complement C4 Miscellaneous Test Crossmatch 09/10/16 09/10/16 09/10/16 13:17 17:20 23:32 WBC RBC Hgb Hct MCV MCH MCHC RDW Plt Count Lymph % (Auto) [place] % (Auto) Lymph # [place] # Baso # Seg Neutrophils % Seg Neuts % (Manual) Lymphocytes % (Manual) Monocytes % (Manual) Eosinophils % (Manual) Basophils % (Manual) Nucleated RBC % Seg Neutrophils # Seg Neutrophils # Man Lymphocytes # (Manual) Monocytes # (Manual) Eosinophils # (Manual) PT INR Fibrinogen dRVVT Confirm Interp Factor V Activity POC ABG pH POC ABG pCO2 POC ABG pO2 Sodium Potassium Chloride Carbon Dioxide BUN Creatinine Glucose POC Glucose 199 H 186 H Lactic Acid Calcium Phosphorus Magnesium Direct Bilirubin AST ALT Alkaline Phosphatase Lactate Dehydrogenase Troponin T C-Reactive Protein Total Protein Albumin Prealbumin Triglycerides Cholesterol LDL Cholesterol Direct HDL Cholesterol Urine pH Urine WBC (Auto) Urine Creatinine Urine Total Protein Vancomycin Trough Rheumatoid Factor Complement C4 Miscellaneous Test Crossmatch See Detail 09/11/16 09/11/16 09/11/16 05:10 05:10 05:17 WBC 28.4 H RBC Hgb 9.2 L Hct 29.3 L D MCV 73 L MCH 23 L MCHC RDW 18.9 H Plt Count 452 H Lymph % (Auto) [place] % (Auto) Lymph # [place] # Baso # Seg Neutrophils % Seg Neuts % (Manual) 89.5 H Lymphocytes % (Manual) 2.0 L Monocytes % (Manual) Eosinophils % (Manual) Basophils % (Manual) Nucleated RBC % Seg Neutrophils # Seg Neutrophils # Man 25.4 H Lymphocytes # (Manual) 0.6 L Monocytes # (Manual) 1.3 H Eosinophils # (Manual) PT INR Fibrinogen dRVVT Confirm Interp Factor V Activity POC ABG pH POC ABG pCO2 POC ABG pO2 Sodium 136 L Potassium Chloride Carbon Dioxide 18 L BUN 107 H Creatinine 2.6 H Glucose 187 H POC Glucose 230 H Lactic Acid Calcium 8.3 L Phosphorus Magnesium Direct Bilirubin AST ALT Alkaline Phosphatase Lactate Dehydrogenase Troponin T C-Reactive Protein Total Protein Albumin Prealbumin Triglycerides Cholesterol LDL Cholesterol Direct HDL Cholesterol Urine pH Urine WBC (Auto) Urine Creatinine Urine Total Protein Vancomycin Trough Rheumatoid Factor Complement C4 Miscellaneous Test Crossmatch 09/11/16 09/11/16 09/11/16 05:55 12:02 17:32 WBC RBC Hgb Hct MCV MCH MCHC RDW Plt Count Lymph % (Auto) [place] % (Auto) Lymph # [place] # Baso # Seg Neutrophils % Seg Neuts % (Manual) Lymphocytes % (Manual) Monocytes % (Manual) Eosinophils % (Manual) Basophils % (Manual) Nucleated RBC % Seg Neutrophils # Seg Neutrophils # Man Lymphocytes # (Manual) Monocytes # (Manual) Eosinophils # (Manual) PT INR Fibrinogen dRVVT Confirm Interp Factor V Activity POC ABG pH POC ABG pCO2 33.8 L POC ABG pO2 Sodium Potassium Chloride Carbon Dioxide BUN Creatinine Glucose POC Glucose 191 H 239 H Lactic Acid Calcium Phosphorus Magnesium Direct Bilirubin AST ALT Alkaline Phosphatase Lactate Dehydrogenase Troponin T C-Reactive Protein Total Protein Albumin Prealbumin Triglycerides Cholesterol LDL Cholesterol Direct HDL Cholesterol Urine pH Urine WBC (Auto) Urine Creatinine Urine Total Protein Vancomycin Trough Rheumatoid Factor Complement C4 Miscellaneous Test Crossmatch 09/11/16 09/12/16 09/12/16 23:52 05:09 05:32 WBC RBC Hgb Hct MCV MCH MCHC RDW Plt Count Lymph % (Auto) [place] % (Auto) Lymph # [place] # Baso # Seg Neutrophils % Seg Neuts % (Manual) Lymphocytes % (Manual) Monocytes % (Manual) Eosinophils % (Manual) Basophils % (Manual) Nucleated RBC % Seg Neutrophils # Seg Neutrophils # Man Lymphocytes # (Manual) Monocytes # (Manual) Eosinophils # (Manual) PT INR Fibrinogen dRVVT Confirm Interp Factor V Activity POC ABG pH POC ABG pCO2 34.6 L POC ABG pO2 Sodium Potassium Chloride Carbon Dioxide BUN Creatinine Glucose POC Glucose 265 H 184 H Lactic Acid Calcium Phosphorus Magnesium Direct Bilirubin AST ALT Alkaline Phosphatase Lactate Dehydrogenase Troponin T C-Reactive Protein Total Protein Albumin Prealbumin Triglycerides Cholesterol LDL Cholesterol Direct HDL Cholesterol Urine pH Urine WBC (Auto) Urine Creatinine Urine Total Protein Vancomycin Trough Rheumatoid Factor Complement C4 Miscellaneous Test Crossmatch 09/12/16 09/12/16 09/12/16 06:45 06:45 07:22 WBC 31.7 H RBC 3.54 L Hgb 8.3 L Hct 25.9 L MCV 73 L MCH 23 L MCHC RDW 18.9 H Plt Count Lymph % (Auto) [place] % (Auto) Lymph # [place] # Baso # Seg Neutrophils % Seg Neuts % (Manual) 88.5 H Lymphocytes % (Manual) 4.5 L Monocytes % (Manual) Eosinophils % (Manual) Basophils % (Manual) Nucleated RBC % Seg Neutrophils # Seg Neutrophils # Man 28.1 H Lymphocytes # (Manual) Monocytes # (Manual) 1.0 H Eosinophils # (Manual) PT INR Fibrinogen dRVVT Confirm Interp Factor V Activity POC ABG pH POC ABG pCO2 POC ABG pO2 Sodium Potassium Chloride Carbon Dioxide 20 L BUN 115 H Creatinine 2.7 H Glucose 165 H POC Glucose Lactic Acid Calcium 8.0 L Phosphorus Magnesium Direct Bilirubin AST ALT Alkaline Phosphatase Lactate Dehydrogenase Troponin T C-Reactive Protein Total Protein Albumin Prealbumin Triglycerides 217 H Cholesterol LDL Cholesterol Direct HDL Cholesterol Urine pH Urine WBC (Auto) Urine Creatinine Urine Total Protein Vancomycin Trough Rheumatoid Factor Complement C4 Miscellaneous Test Crossmatch 09/12/16 09/12/16 09/12/16 07:22 09:59 12:21 WBC RBC Hgb Hct MCV MCH MCHC RDW Plt Count Lymph % (Auto) [place] % (Auto) Lymph # [place] # Baso # Seg Neutrophils % Seg Neuts % (Manual) Lymphocytes % (Manual) Monocytes % (Manual) Eosinophils % (Manual) Basophils % (Manual) Nucleated RBC % Seg Neutrophils # Seg Neutrophils # Man Lymphocytes # (Manual) Monocytes # (Manual) Eosinophils # (Manual) PT INR Fibrinogen dRVVT Confirm Interp Positive H Factor V Activity POC ABG pH POC ABG pCO2 POC ABG pO2 Sodium Potassium Chloride Carbon Dioxide BUN Creatinine Glucose POC Glucose 224 H Lactic Acid Calcium Phosphorus Magnesium Direct Bilirubin AST ALT Alkaline Phosphatase Lactate Dehydrogenase Troponin T C-Reactive Protein 1.70 H Total Protein Albumin Prealbumin Triglycerides Cholesterol LDL Cholesterol Direct HDL Cholesterol Urine pH Urine WBC (Auto) Urine Creatinine Urine Total Protein Vancomycin Trough Rheumatoid Factor Complement C4 Miscellaneous Test Crossmatch 09/12/16 09/12/16 09/13/16 16:51 23:28 04:00 WBC 45.0 H* RBC Hgb 9.4 L Hct MCV 75 L MCH 23 L MCHC RDW 19.0 H Plt Count 470 H Lymph % (Auto) [place] % (Auto) Lymph # [place] # Baso # Seg Neutrophils % Seg Neuts % (Manual) 89.0 H Lymphocytes % (Manual) 5.0 L Monocytes % (Manual) Eosinophils % (Manual) Basophils % (Manual) Nucleated RBC % Seg Neutrophils # Seg Neutrophils # Man 40.1 H Lymphocytes # (Manual) Monocytes # (Manual) Eosinophils # (Manual) PT INR Fibrinogen dRVVT Confirm Interp Factor V Activity POC ABG pH POC ABG pCO2 POC ABG pO2 Sodium Potassium Chloride Carbon Dioxide BUN Creatinine Glucose POC Glucose 169 H 150 H Lactic Acid Calcium Phosphorus Magnesium Direct Bilirubin AST ALT Alkaline Phosphatase Lactate Dehydrogenase Troponin T C-Reactive Protein Total Protein Albumin Prealbumin Triglycerides Cholesterol LDL Cholesterol Direct HDL Cholesterol Urine pH Urine WBC (Auto) Urine Creatinine Urine Total Protein Vancomycin Trough Rheumatoid Factor Complement C4 Miscellaneous Test Crossmatch 09/13/16 09/13/16 09/13/16 04:00 11:26 17:31 WBC RBC Hgb Hct MCV MCH MCHC RDW Plt Count Lymph % (Auto) [place] % (Auto) Lymph # [place] # Baso # Seg Neutrophils % Seg Neuts % (Manual) Lymphocytes % (Manual) Monocytes % (Manual) Eosinophils % (Manual) Basophils % (Manual) Nucleated RBC % Seg Neutrophils # Seg Neutrophils # Man Lymphocytes # (Manual) Monocytes # (Manual) Eosinophils # (Manual) PT INR Fibrinogen dRVVT Confirm Interp Factor V Activity POC ABG pH POC ABG pCO2 POC ABG pO2 Sodium Potassium Chloride Carbon Dioxide 20 L BUN 116 H Creatinine 3.0 H Glucose 172 H POC Glucose 140 H 183 H Lactic Acid Calcium Phosphorus Magnesium Direct Bilirubin AST ALT Alkaline Phosphatase Lactate Dehydrogenase Troponin T C-Reactive Protein Total Protein 6.2 L Albumin 2.9 L Prealbumin Triglycerides Cholesterol LDL Cholesterol Direct HDL Cholesterol Urine pH Urine WBC (Auto) Urine Creatinine Urine Total Protein Vancomycin Trough Rheumatoid Factor Complement C4 Miscellaneous Test Crossmatch 09/13/16 09/14/16 09/14/16 23:23 04:06 04:07 WBC 29.4 H RBC Hgb 8.9 L Hct 27.3 L MCV 75 L MCH 24 L MCHC RDW 19.1 H Plt Count Lymph % (Auto) [place] % (Auto) Lymph # [place] # Baso # Seg Neutrophils % Seg Neuts % (Manual) 84.0 H Lymphocytes % (Manual) 6.0 L Monocytes % (Manual) 9.0 H Eosinophils % (Manual) Basophils % (Manual) Nucleated RBC % Seg Neutrophils # Seg Neutrophils # Man 24.7 H Lymphocytes # (Manual) Monocytes # (Manual) 2.6 H Eosinophils # (Manual) PT INR Fibrinogen dRVVT Confirm Interp Factor V Activity POC ABG pH 7.342 L POC ABG pCO2 POC ABG pO2 116 H Sodium Potassium Chloride Carbon Dioxide BUN Creatinine Glucose POC Glucose 154 H Lactic Acid Calcium Phosphorus Magnesium Direct Bilirubin AST ALT Alkaline Phosphatase Lactate Dehydrogenase Troponin T C-Reactive Protein Total Protein Albumin Prealbumin Triglycerides Cholesterol LDL Cholesterol Direct HDL Cholesterol Urine pH Urine WBC (Auto) Urine Creatinine Urine Total Protein Vancomycin Trough Rheumatoid Factor Complement C4 Miscellaneous Test Crossmatch 09/14/16 09/14/16 09/14/16 04:07 05:29 12:19 WBC RBC Hgb Hct MCV MCH MCHC RDW Plt Count Lymph % (Auto) [place] % (Auto) Lymph # [place] # Baso # Seg Neutrophils % Seg Neuts % (Manual) Lymphocytes % (Manual) Monocytes % (Manual) Eosinophils % (Manual) Basophils % (Manual) Nucleated RBC % Seg Neutrophils # Seg Neutrophils # Man Lymphocytes # (Manual) Monocytes # (Manual) Eosinophils # (Manual) PT INR Fibrinogen dRVVT Confirm Interp Factor V Activity POC ABG pH POC ABG pCO2 POC ABG pO2 Sodium 136 L Potassium Chloride Carbon Dioxide 18 L BUN 121 H Creatinine 2.8 H Glucose 214 H POC Glucose 239 H 181 H Lactic Acid Calcium Phosphorus Magnesium Direct Bilirubin AST ALT Alkaline Phosphatase Lactate Dehydrogenase Troponin T C-Reactive Protein Total Protein Albumin Prealbumin Triglycerides Cholesterol LDL Cholesterol Direct HDL Cholesterol Urine pH Urine WBC (Auto) Urine Creatinine Urine Total Protein Vancomycin Trough Rheumatoid Factor Complement C4 Miscellaneous Test Crossmatch 09/14/16 09/14/16 09/15/16 18:12 23:37 05:00 WBC 26.1 H RBC 3.05 L Hgb 7.2 L Hct 22.9 L MCV 75 L MCH 24 L MCHC RDW 19.0 H Plt Count Lymph % (Auto) [place] % (Auto) Lymph # [place] # Baso # Seg Neutrophils % Seg Neuts % (Manual) Lymphocytes % (Manual) Monocytes % (Manual) Eosinophils % (Manual) Basophils % (Manual) Nucleated RBC % Seg Neutrophils # Seg Neutrophils # Man Lymphocytes # (Manual) Monocytes # (Manual) Eosinophils # (Manual) PT INR Fibrinogen dRVVT Confirm Interp Factor V Activity POC ABG pH POC ABG pCO2 POC ABG pO2 Sodium Potassium Chloride Carbon Dioxide BUN Creatinine Glucose POC Glucose 266 H 154 H Lactic Acid Calcium Phosphorus Magnesium Direct Bilirubin AST ALT Alkaline Phosphatase Lactate Dehydrogenase Troponin T C-Reactive Protein Total Protein Albumin Prealbumin Triglycerides Cholesterol LDL Cholesterol Direct HDL Cholesterol Urine pH Urine WBC (Auto) Urine Creatinine Urine Total Protein Vancomycin Trough Rheumatoid Factor Complement C4 Miscellaneous Test Crossmatch 09/15/16 09/15/16 09/15/16 05:00 05:17 12:45 WBC RBC Hgb Hct MCV MCH MCHC RDW Plt Count Lymph % (Auto) [place] % (Auto) Lymph # [place] # Baso # Seg Neutrophils % Seg Neuts % (Manual) Lymphocytes % (Manual) Monocytes % (Manual) Eosinophils % (Manual) Basophils % (Manual) Nucleated RBC % Seg Neutrophils # Seg Neutrophils # Man Lymphocytes # (Manual) Monocytes # (Manual) Eosinophils # (Manual) PT INR Fibrinogen dRVVT Confirm Interp Factor V Activity POC ABG pH POC ABG pCO2 POC ABG pO2 Sodium Potassium 5.2 H Chloride Carbon Dioxide 18 L BUN 139 H Creatinine 3.7 H Glucose 227 H POC Glucose 226 H 244 H Lactic Acid Calcium 8.3 L Phosphorus Magnesium Direct Bilirubin AST ALT Alkaline Phosphatase Lactate Dehydrogenase Troponin T C-Reactive Protein Total Protein Albumin Prealbumin Triglycerides Cholesterol LDL Cholesterol Direct HDL Cholesterol Urine pH Urine WBC (Auto) Urine Creatinine Urine Total Protein Vancomycin Trough Rheumatoid Factor Complement C4 Miscellaneous Test Crossmatch 09/15/16 09/15/16 09/15/16 14:32 17:33 23:35 WBC RBC Hgb Hct MCV MCH MCHC RDW Plt Count Lymph % (Auto) [place] % (Auto) Lymph # [place] # Baso # Seg Neutrophils % Seg Neuts % (Manual) Lymphocytes % (Manual) Monocytes % (Manual) Eosinophils % (Manual) Basophils % (Manual) Nucleated RBC % Seg Neutrophils # Seg Neutrophils # Man Lymphocytes # (Manual) Monocytes # (Manual) Eosinophils # (Manual) PT INR Fibrinogen dRVVT Confirm Interp Factor V Activity POC ABG pH POC ABG pCO2 27.7 L POC ABG pO2 120 H Sodium Potassium Chloride Carbon Dioxide BUN Creatinine Glucose POC Glucose 232 H 167 H Lactic Acid Calcium Phosphorus Magnesium Direct Bilirubin AST ALT Alkaline Phosphatase Lactate Dehydrogenase Troponin T C-Reactive Protein Total Protein Albumin Prealbumin Triglycerides Cholesterol LDL Cholesterol Direct HDL Cholesterol Urine pH Urine WBC (Auto) Urine Creatinine Urine Total Protein Vancomycin Trough Rheumatoid Factor Complement C4 Miscellaneous Test Crossmatch 09/16/16 09/16/16 09/16/16 03:58 10:27 10:27 WBC 19.0 H RBC 2.77 L Hgb 6.5 L Hct 20.9 L MCV 76 L MCH 23 L MCHC RDW 19.3 H Plt Count Lymph % (Auto) 11.0 L [place] % (Auto) Lymph # [place] # 1.1 H Baso # Seg Neutrophils % 82.5 H Seg Neuts % (Manual) Lymphocytes % (Manual) Monocytes % (Manual) Eosinophils % (Manual) Basophils % (Manual) Nucleated RBC % Seg Neutrophils # 15.7 H Seg Neutrophils # Man Lymphocytes # (Manual) Monocytes # (Manual) Eosinophils # (Manual) PT INR Fibrinogen dRVVT Confirm Interp Factor V Activity POC ABG pH POC ABG pCO2 POC ABG pO2 Sodium Potassium Chloride 109.3 H Carbon Dioxide 18 L BUN 139 H Creatinine 4.1 H Glucose 144 H POC Glucose 146 H Lactic Acid Calcium 8.1 L Phosphorus Magnesium Direct Bilirubin AST ALT Alkaline Phosphatase Lactate Dehydrogenase Troponin T C-Reactive Protein Total Protein Albumin Prealbumin Triglycerides Cholesterol LDL Cholesterol Direct HDL Cholesterol Urine pH Urine WBC (Auto) Urine Creatinine Urine Total Protein Vancomycin Trough Rheumatoid Factor Complement C4 Miscellaneous Test Crossmatch 09/16/16 09/16/16 09/16/16 12:04 12:10 13:55 WBC RBC Hgb Hct MCV MCH MCHC RDW Plt Count Lymph % (Auto) [place] % (Auto) Lymph # [place] # Baso # Seg Neutrophils % Seg Neuts % (Manual) Lymphocytes % (Manual) Monocytes % (Manual) Eosinophils % (Manual) Basophils % (Manual) Nucleated RBC % Seg Neutrophils # Seg Neutrophils # Man Lymphocytes # (Manual) Monocytes # (Manual) Eosinophils # (Manual) PT INR Fibrinogen dRVVT Confirm Interp Factor V Activity POC ABG pH POC ABG pCO2 32.9 L POC ABG pO2 Sodium Potassium Chloride Carbon Dioxide BUN Creatinine Glucose POC Glucose 185 H Lactic Acid Calcium Phosphorus Magnesium Direct Bilirubin AST ALT Alkaline Phosphatase Lactate Dehydrogenase Troponin T C-Reactive Protein Total Protein Albumin Prealbumin Triglycerides Cholesterol LDL Cholesterol Direct HDL Cholesterol Urine pH Urine WBC (Auto) Urine Creatinine Urine Total Protein Vancomycin Trough Rheumatoid Factor Complement C4 Miscellaneous Test Crossmatch See Detail 09/16/16 09/16/16 09/16/16 17:55 19:19 23:48 WBC RBC Hgb Hct MCV MCH MCHC RDW Plt Count Lymph % (Auto) [place] % (Auto) Lymph # [place] # Baso # Seg Neutrophils % Seg Neuts % (Manual) Lymphocytes % (Manual) Monocytes % (Manual) Eosinophils % (Manual) Basophils % (Manual) Nucleated RBC % Seg Neutrophils # Seg Neutrophils # Man Lymphocytes # (Manual) Monocytes # (Manual) Eosinophils # (Manual) PT INR Fibrinogen dRVVT Confirm Interp Factor V Activity POC ABG pH POC ABG pCO2 POC ABG pO2 Sodium Potassium Chloride Carbon Dioxide BUN Creatinine Glucose POC Glucose 222 H 107 H Lactic Acid Calcium Phosphorus Magnesium Direct Bilirubin AST ALT Alkaline Phosphatase Lactate Dehydrogenase Troponin T C-Reactive Protein Total Protein Albumin Prealbumin Triglycerides Cholesterol LDL Cholesterol Direct HDL Cholesterol Urine pH Urine WBC (Auto) Urine Creatinine 47.4 H Urine Total Protein 16 H Vancomycin Trough Rheumatoid Factor Complement C4 Miscellaneous Test Crossmatch 09/17/16 09/17/16 09/17/16 03:45 03:45 04:55 WBC 19.6 H RBC 3.41 L Hgb 8.5 L Hct 26.7 L MCV 78 L MCH 25 L MCHC RDW 19.9 H Plt Count Lymph % (Auto) 9.3 L [place] % (Auto) Lymph # [place] # 1.2 H Baso # Seg Neutrophils % 83.9 H Seg Neuts % (Manual) Lymphocytes % (Manual) Monocytes % (Manual) Eosinophils % (Manual) Basophils % (Manual) Nucleated RBC % Seg Neutrophils # 16.4 H Seg Neutrophils # Man Lymphocytes # (Manual) Monocytes # (Manual) Eosinophils # (Manual) PT INR Fibrinogen dRVVT Confirm Interp Factor V Activity POC ABG pH POC ABG pCO2 POC ABG pO2 Sodium 146 H Potassium 5.1 H Chloride 110.9 H Carbon Dioxide 16 L BUN 146 H Creatinine 4.0 H Glucose 108 H POC Glucose 133 H Lactic Acid Calcium Phosphorus Magnesium 3.00 H Direct Bilirubin AST ALT Alkaline Phosphatase Lactate Dehydrogenase Troponin T C-Reactive Protein Total Protein Albumin Prealbumin Triglycerides Cholesterol LDL Cholesterol Direct HDL Cholesterol Urine pH Urine WBC (Auto) Urine Creatinine Urine Total Protein Vancomycin Trough Rheumatoid Factor Complement C4 Miscellaneous Test Crossmatch 09/17/16 09/17/16 09/17/16 11:15 17:33 23:47 WBC RBC Hgb Hct MCV MCH MCHC RDW Plt Count Lymph % (Auto) [place] % (Auto) Lymph # [place] # Baso # Seg Neutrophils % Seg Neuts % (Manual) Lymphocytes % (Manual) Monocytes % (Manual) Eosinophils % (Manual) Basophils % (Manual) Nucleated RBC % Seg Neutrophils # Seg Neutrophils # Man Lymphocytes # (Manual) Monocytes # (Manual) Eosinophils # (Manual) PT INR Fibrinogen dRVVT Confirm Interp Factor V Activity POC ABG pH POC ABG pCO2 POC ABG pO2 Sodium Potassium Chloride Carbon Dioxide BUN Creatinine Glucose POC Glucose 176 H 246 H 148 H Lactic Acid Calcium Phosphorus Magnesium Direct Bilirubin AST ALT Alkaline Phosphatase Lactate Dehydrogenase Troponin T C-Reactive Protein Total Protein Albumin Prealbumin Triglycerides Cholesterol LDL Cholesterol Direct HDL Cholesterol Urine pH Urine WBC (Auto) Urine Creatinine Urine Total Protein Vancomycin Trough Rheumatoid Factor Complement C4 Miscellaneous Test Crossmatch 09/18/16 09/18/16 09/18/16 05:33 08:31 08:31 WBC 18.0 H RBC 3.17 L Hgb 9.0 L Hct 25.7 L MCV MCH MCHC 35 H RDW 20.4 H Plt Count Lymph % (Auto) [place] % (Auto) Lymph # [place] # Baso # Seg Neutrophils % Seg Neuts % (Manual) Lymphocytes % (Manual) Monocytes % (Manual) Eosinophils % (Manual) Basophils % (Manual) Nucleated RBC % Seg Neutrophils # Seg Neutrophils # Man Lymphocytes # (Manual) Monocytes # (Manual) Eosinophils # (Manual) PT INR Fibrinogen dRVVT Confirm Interp Factor V Activity POC ABG pH POC ABG pCO2 POC ABG pO2 Sodium Potassium Chloride Carbon Dioxide 15 L BUN 124 H Creatinine 3.8 H Glucose POC Glucose 120 H Lactic Acid Calcium 8.1 L Phosphorus Magnesium Direct Bilirubin AST ALT Alkaline Phosphatase Lactate Dehydrogenase Troponin T C-Reactive Protein Total Protein Albumin Prealbumin Triglycerides Cholesterol LDL Cholesterol Direct HDL Cholesterol Urine pH Urine WBC (Auto) Urine Creatinine Urine Total Protein Vancomycin Trough Rheumatoid Factor Complement C4 Miscellaneous Test Crossmatch 09/18/16 09/18/16 09/18/16 12:03 15:34 17:50 WBC RBC Hgb Hct MCV MCH MCHC RDW Plt Count Lymph % (Auto) [place] % (Auto) Lymph # [place] # Baso # Seg Neutrophils % Seg Neuts % (Manual) Lymphocytes % (Manual) Monocytes % (Manual) Eosinophils % (Manual) Basophils % (Manual) Nucleated RBC % Seg Neutrophils # Seg Neutrophils # Man Lymphocytes # (Manual) Monocytes # (Manual) Eosinophils # (Manual) PT INR Fibrinogen dRVVT Confirm Interp Factor V Activity POC ABG pH POC ABG pCO2 25.7 L POC ABG pO2 66 L Sodium Potassium Chloride Carbon Dioxide BUN Creatinine Glucose POC Glucose 156 H 220 H Lactic Acid Calcium Phosphorus Magnesium Direct Bilirubin AST ALT Alkaline Phosphatase Lactate Dehydrogenase Troponin T C-Reactive Protein Total Protein Albumin Prealbumin Triglycerides Cholesterol LDL Cholesterol Direct HDL Cholesterol Urine pH Urine WBC (Auto) Urine Creatinine Urine Total Protein Vancomycin Trough Rheumatoid Factor Complement C4 Miscellaneous Test Crossmatch 09/19/16 09/19/16 09/19/16 06:21 09:50 09:50 WBC 17.1 H RBC 3.49 L Hgb 9.0 L Hct 28.1 L MCV MCH 26 L MCHC RDW 20.8 H Plt Count Lymph % (Auto) 11.5 L [place] % (Auto) 7.5 H Lymph # [place] # 1.3 H Baso # Seg Neutrophils % 79.8 H Seg Neuts % (Manual) Lymphocytes % (Manual) Monocytes % (Manual) Eosinophils % (Manual) Basophils % (Manual) Nucleated RBC % Seg Neutrophils # 13.7 H Seg Neutrophils # Man Lymphocytes # (Manual) Monocytes # (Manual) Eosinophils # (Manual) PT INR Fibrinogen dRVVT Confirm Interp Factor V Activity POC ABG pH POC ABG pCO2 POC ABG pO2 Sodium Potassium Chloride 108.6 H Carbon Dioxide 15 L BUN 125 H Creatinine 4.1 H Glucose 124 H POC Glucose 119 H Lactic Acid Calcium Phosphorus Magnesium Direct Bilirubin AST ALT Alkaline Phosphatase Lactate Dehydrogenase Troponin T C-Reactive Protein Total Protein Albumin Prealbumin Triglycerides Cholesterol LDL Cholesterol Direct HDL Cholesterol Urine pH Urine WBC (Auto) Urine Creatinine Urine Total Protein Vancomycin Trough Rheumatoid Factor Complement C4 Miscellaneous Test Crossmatch 09/19/16 09/19/16 09/19/16 11:25 17:53 23:36 WBC RBC Hgb Hct MCV MCH MCHC RDW Plt Count Lymph % (Auto) [place] % (Auto) Lymph # [place] # Baso # Seg Neutrophils % Seg Neuts % (Manual) Lymphocytes % (Manual) Monocytes % (Manual) Eosinophils % (Manual) Basophils % (Manual) Nucleated RBC % Seg Neutrophils # Seg Neutrophils # Man Lymphocytes # (Manual) Monocytes # (Manual) Eosinophils # (Manual) PT INR Fibrinogen dRVVT Confirm Interp Factor V Activity POC ABG pH POC ABG pCO2 POC ABG pO2 Sodium Potassium Chloride Carbon Dioxide BUN Creatinine Glucose POC Glucose 160 H 245 H 121 H Lactic Acid Calcium Phosphorus Magnesium Direct Bilirubin AST ALT Alkaline Phosphatase Lactate Dehydrogenase Troponin T C-Reactive Protein Total Protein Albumin Prealbumin Triglycerides Cholesterol LDL Cholesterol Direct HDL Cholesterol Urine pH Urine WBC (Auto) Urine Creatinine Urine Total Protein Vancomycin Trough Rheumatoid Factor Complement C4 Miscellaneous Test Crossmatch 09/20/16 09/20/16 09/20/16 04:10 04:10 04:10 WBC 17.0 H RBC 3.21 L Hgb 8.2 L Hct 25.5 L MCV MCH 26 L MCHC RDW 20.9 H Plt Count Lymph % (Auto) [place] % (Auto) Lymph # [place] # Baso # Seg Neutrophils % Seg Neuts % (Manual) Lymphocytes % (Manual) Monocytes % (Manual) Eosinophils % (Manual) Basophils % (Manual) Nucleated RBC % Seg Neutrophils # Seg Neutrophils # Man Lymphocytes # (Manual) Monocytes # (Manual) Eosinophils # (Manual) PT INR Fibrinogen dRVVT Confirm Interp Factor V Activity POC ABG pH POC ABG pCO2 POC ABG pO2 Sodium Potassium Chloride 111.0 H Carbon Dioxide 16 L BUN 129 H Creatinine 3.7 H Glucose 115 H POC Glucose Lactic Acid Calcium 8.2 L Phosphorus Magnesium Direct Bilirubin AST ALT Alkaline Phosphatase Lactate Dehydrogenase Troponin T C-Reactive Protein Total Protein Albumin Prealbumin Triglycerides 243 H Cholesterol LDL Cholesterol Direct HDL Cholesterol Urine pH Urine WBC (Auto) Urine Creatinine Urine Total Protein Vancomycin Trough Rheumatoid Factor Complement C4 Miscellaneous Test Crossmatch 09/20/16 09/20/16 09/20/16 05:40 11:52 16:50 WBC RBC Hgb Hct MCV MCH MCHC RDW Plt Count Lymph % (Auto) [place] % (Auto) Lymph # [place] # Baso # Seg Neutrophils % Seg Neuts % (Manual) Lymphocytes % (Manual) Monocytes % (Manual) Eosinophils % (Manual) Basophils % (Manual) Nucleated RBC % Seg Neutrophils # Seg Neutrophils # Man Lymphocytes # (Manual) Monocytes # (Manual) Eosinophils # (Manual) PT INR Fibrinogen dRVVT Confirm Interp Factor V Activity POC ABG pH POC ABG pCO2 POC ABG pO2 Sodium Potassium Chloride Carbon Dioxide BUN Creatinine Glucose POC Glucose 131 H 183 H 236 H Lactic Acid Calcium Phosphorus Magnesium Direct Bilirubin AST ALT Alkaline Phosphatase Lactate Dehydrogenase Troponin T C-Reactive Protein Total Protein Albumin Prealbumin Triglycerides Cholesterol LDL Cholesterol Direct HDL Cholesterol Urine pH Urine WBC (Auto) Urine Creatinine Urine Total Protein Vancomycin Trough Rheumatoid Factor Complement C4 Miscellaneous Test Crossmatch 09/20/16 09/21/16 09/21/16 23:51 03:30 04:44 WBC RBC Hgb Hct MCV MCH MCHC RDW Plt Count Lymph % (Auto) [place] % (Auto) Lymph # [place] # Baso # Seg Neutrophils % Seg Neuts % (Manual) Lymphocytes % (Manual) Monocytes % (Manual) Eosinophils % (Manual) Basophils % (Manual) Nucleated RBC % Seg Neutrophils # Seg Neutrophils # Man Lymphocytes # (Manual) Monocytes # (Manual) Eosinophils # (Manual) PT INR Fibrinogen dRVVT Confirm Interp Factor V Activity POC ABG pH POC ABG pCO2 POC ABG pO2 Sodium Potassium Chloride Carbon Dioxide BUN Creatinine Glucose POC Glucose 114 H 141 H Lactic Acid Calcium Phosphorus Magnesium 2.70 H Direct Bilirubin AST ALT Alkaline Phosphatase Lactate Dehydrogenase Troponin T C-Reactive Protein Total Protein Albumin Prealbumin Triglycerides Cholesterol LDL Cholesterol Direct HDL Cholesterol Urine pH Urine WBC (Auto) Urine Creatinine Urine Total Protein Vancomycin Trough Rheumatoid Factor Complement C4 Miscellaneous Test Crossmatch 09/21/16 09/21/16 09/21/16 07:45 07:45 10:01 WBC 13.8 H RBC 2.94 L Hgb 7.5 L Hct 23.5 L MCV MCH 26 L MCHC RDW 21.2 H Plt Count Lymph % (Auto) 6.9 L [place] % (Auto) 9.4 H Lymph # 0.9 L [place] # 1.3 H Baso # Seg Neutrophils % 83.2 H Seg Neuts % (Manual) Lymphocytes % (Manual) Monocytes % (Manual) Eosinophils % (Manual) Basophils % (Manual) Nucleated RBC % Seg Neutrophils # 11.5 H Seg Neutrophils # Man Lymphocytes # (Manual) Monocytes # (Manual) Eosinophils # (Manual) PT INR Fibrinogen dRVVT Confirm Interp Factor V Activity POC ABG pH 7.308 L POC ABG pCO2 31.9 L POC ABG pO2 148 H Sodium 147 H Potassium Chloride 114.2 H Carbon Dioxide 15 L BUN 120 H Creatinine 3.9 H Glucose 156 H POC Glucose Lactic Acid Calcium 8.2 L Phosphorus Magnesium Direct Bilirubin AST ALT Alkaline Phosphatase Lactate Dehydrogenase Troponin T C-Reactive Protein Total Protein Albumin Prealbumin Triglycerides Cholesterol LDL Cholesterol Direct HDL Cholesterol Urine pH Urine WBC (Auto) Urine Creatinine Urine Total Protein Vancomycin Trough Rheumatoid Factor Complement C4 Miscellaneous Test Crossmatch 09/21/16 09/21/16 09/21/16 12:00 12:03 13:00 WBC RBC Hgb Hct MCV MCH MCHC RDW Plt Count Lymph % (Auto) [place] % (Auto) Lymph # [place] # Baso # Seg Neutrophils % Seg Neuts % (Manual) Lymphocytes % (Manual) Monocytes % (Manual) Eosinophils % (Manual) Basophils % (Manual) Nucleated RBC % Seg Neutrophils # Seg Neutrophils # Man Lymphocytes # (Manual) Monocytes # (Manual) Eosinophils # (Manual) PT INR Fibrinogen dRVVT Confirm Interp Factor V Activity POC ABG pH POC ABG pCO2 POC ABG pO2 Sodium Potassium Chloride Carbon Dioxide BUN Creatinine Glucose POC Glucose 163 H Lactic Acid Calcium Phosphorus Magnesium Direct Bilirubin AST ALT Alkaline Phosphatase Lactate Dehydrogenase Troponin T C-Reactive Protein Total Protein Albumin Prealbumin Triglycerides Cholesterol LDL Cholesterol Direct HDL Cholesterol Urine pH Urine WBC (Auto) Urine Creatinine 54.8 H Urine Total Protein Vancomycin Trough 2.3 L Rheumatoid Factor Complement C4 Miscellaneous Test Crossmatch 09/21/16 09/21/16 09/22/16 16:51 23:17 06:27 WBC RBC Hgb Hct MCV MCH MCHC RDW Plt Count Lymph % (Auto) [place] % (Auto) Lymph # [place] # Baso # Seg Neutrophils % Seg Neuts % (Manual) Lymphocytes % (Manual) Monocytes % (Manual) Eosinophils % (Manual) Basophils % (Manual) Nucleated RBC % Seg Neutrophils # Seg Neutrophils # Man Lymphocytes # (Manual) Monocytes # (Manual) Eosinophils # (Manual) PT INR Fibrinogen dRVVT Confirm Interp Factor V Activity POC ABG pH POC ABG pCO2 POC ABG pO2 Sodium Potassium Chloride Carbon Dioxide BUN Creatinine Glucose POC Glucose 206 H 114 H 115 H Lactic Acid Calcium Phosphorus Magnesium Direct Bilirubin AST ALT Alkaline Phosphatase Lactate Dehydrogenase Troponin T C-Reactive Protein Total Protein Albumin Prealbumin Triglycerides Cholesterol LDL Cholesterol Direct HDL Cholesterol Urine pH Urine WBC (Auto) Urine Creatinine Urine Total Protein Vancomycin Trough Rheumatoid Factor Complement C4 Miscellaneous Test Crossmatch 09/22/16 09/22/16 09/22/16 07:50 07:50 12:00 WBC 17.8 H RBC 3.04 L Hgb 8.0 L Hct 24.7 L MCV MCH 26 L MCHC RDW 21.6 H Plt Count Lymph % (Auto) [place] % (Auto) Lymph # [place] # Baso # Seg Neutrophils % Seg Neuts % (Manual) Lymphocytes % (Manual) Monocytes % (Manual) Eosinophils % (Manual) Basophils % (Manual) Nucleated RBC % Seg Neutrophils # Seg Neutrophils # Man Lymphocytes # (Manual) Monocytes # (Manual) Eosinophils # (Manual) PT INR Fibrinogen dRVVT Confirm Interp Factor V Activity POC ABG pH POC ABG pCO2 POC ABG pO2 Sodium 150 H Potassium Chloride 118.2 H Carbon Dioxide 14 L BUN 111 H Creatinine 3.7 H Glucose 157 H POC Glucose 183 H Lactic Acid Calcium Phosphorus Magnesium Direct Bilirubin AST ALT Alkaline Phosphatase Lactate Dehydrogenase Troponin T C-Reactive Protein Total Protein Albumin Prealbumin Triglycerides Cholesterol LDL Cholesterol Direct HDL Cholesterol Urine pH Urine WBC (Auto) Urine Creatinine Urine Total Protein Vancomycin Trough Rheumatoid Factor Complement C4 Miscellaneous Test Crossmatch 09/22/16 09/22/16 09/23/16 17:29 23:10 05:00 WBC 19.2 H RBC 3.13 L Hgb 8.0 L Hct 25.2 L MCV MCH 26 L MCHC RDW 22.1 H Plt Count Lymph % (Auto) [place] % (Auto) Lymph # [place] # Baso # Seg Neutrophils % Seg Neuts % (Manual) 92.0 H Lymphocytes % (Manual) 3.0 L Monocytes % (Manual) Eosinophils % (Manual) Basophils % (Manual) Nucleated RBC % Seg Neutrophils # Seg Neutrophils # Man 17.7 H Lymphocytes # (Manual) 0.6 L Monocytes # (Manual) Eosinophils # (Manual) PT INR Fibrinogen dRVVT Confirm Interp Factor V Activity POC ABG pH POC ABG pCO2 POC ABG pO2 Sodium Potassium Chloride Carbon Dioxide BUN Creatinine Glucose POC Glucose 197 H 169 H Lactic Acid Calcium Phosphorus Magnesium Direct Bilirubin AST ALT Alkaline Phosphatase Lactate Dehydrogenase Troponin T C-Reactive Protein Total Protein Albumin Prealbumin Triglycerides Cholesterol LDL Cholesterol Direct HDL Cholesterol Urine pH Urine WBC (Auto) Urine Creatinine Urine Total Protein Vancomycin Trough Rheumatoid Factor Complement C4 Miscellaneous Test Crossmatch 09/23/16 09/23/16 09/23/16 05:00 05:00 05:10 WBC RBC Hgb Hct MCV MCH MCHC RDW Plt Count Lymph % (Auto) [place] % (Auto) Lymph # [place] # Baso # Seg Neutrophils % Seg Neuts % (Manual) Lymphocytes % (Manual) Monocytes % (Manual) Eosinophils % (Manual) Basophils % (Manual) Nucleated RBC % Seg Neutrophils # Seg Neutrophils # Man Lymphocytes # (Manual) Monocytes # (Manual) Eosinophils # (Manual) PT INR Fibrinogen dRVVT Confirm Interp Factor V Activity POC ABG pH POC ABG pCO2 POC ABG pO2 Sodium 147 H Potassium 3.2 L Chloride 115.7 H Carbon Dioxide 13 L BUN 111 H Creatinine 3.8 H Glucose 194 H POC Glucose 188 H Lactic Acid Calcium 7.3 L D Phosphorus Magnesium Direct Bilirubin AST ALT Alkaline Phosphatase Lactate Dehydrogenase Troponin T C-Reactive Protein 3.20 H Total Protein Albumin Prealbumin Triglycerides Cholesterol LDL Cholesterol Direct HDL Cholesterol Urine pH Urine WBC (Auto) Urine Creatinine Urine Total Protein Vancomycin Trough Rheumatoid Factor Complement C4 Miscellaneous Test Crossmatch 09/23/16 09/23/16 09/23/16 11:37 12:29 18:01 WBC RBC Hgb Hct MCV MCH MCHC RDW Plt Count Lymph % (Auto) [place] % (Auto) Lymph # [place] # Baso # Seg Neutrophils % Seg Neuts % (Manual) Lymphocytes % (Manual) Monocytes % (Manual) Eosinophils % (Manual) Basophils % (Manual) Nucleated RBC % Seg Neutrophils # Seg Neutrophils # Man Lymphocytes # (Manual) Monocytes # (Manual) Eosinophils # (Manual) PT INR Fibrinogen dRVVT Confirm Interp Factor V Activity POC ABG pH POC ABG pCO2 18.9 L POC ABG pO2 143 H Sodium Potassium Chloride Carbon Dioxide BUN Creatinine Glucose POC Glucose 153 H 108 H Lactic Acid Calcium Phosphorus Magnesium Direct Bilirubin AST ALT Alkaline Phosphatase Lactate Dehydrogenase Troponin T C-Reactive Protein Total Protein Albumin Prealbumin Triglycerides Cholesterol LDL Cholesterol Direct HDL Cholesterol Urine pH Urine WBC (Auto) Urine Creatinine Urine Total Protein Vancomycin Trough Rheumatoid Factor Complement C4 Miscellaneous Test Crossmatch 09/23/16 09/23/16 09/24/16 21:19 23:43 05:16 WBC RBC Hgb Hct MCV MCH MCHC RDW Plt Count Lymph % (Auto) [place] % (Auto) Lymph # [place] # Baso # Seg Neutrophils % Seg Neuts % (Manual) Lymphocytes % (Manual) Monocytes % (Manual) Eosinophils % (Manual) Basophils % (Manual) Nucleated RBC % Seg Neutrophils # Seg Neutrophils # Man Lymphocytes # (Manual) Monocytes # (Manual) Eosinophils # (Manual) PT INR Fibrinogen dRVVT Confirm Interp Factor V Activity POC ABG pH POC ABG pCO2 17.3 L POC ABG pO2 112 H Sodium Potassium Chloride Carbon Dioxide BUN Creatinine Glucose POC Glucose 143 H 164 H Lactic Acid Calcium Phosphorus Magnesium Direct Bilirubin AST ALT Alkaline Phosphatase Lactate Dehydrogenase Troponin T C-Reactive Protein Total Protein Albumin Prealbumin Triglycerides Cholesterol LDL Cholesterol Direct HDL Cholesterol Urine pH Urine WBC (Auto) Urine Creatinine Urine Total Protein Vancomycin Trough Rheumatoid Factor Complement C4 Miscellaneous Test Crossmatch 09/24/16 09/24/16 09/24/16 05:21 11:58 17:06 WBC RBC Hgb Hct MCV MCH MCHC RDW Plt Count Lymph % (Auto) [place] % (Auto) Lymph # [place] # Baso # Seg Neutrophils % Seg Neuts % (Manual) Lymphocytes % (Manual) Monocytes % (Manual) Eosinophils % (Manual) Basophils % (Manual) Nucleated RBC % Seg Neutrophils # Seg Neutrophils # Man Lymphocytes # (Manual) Monocytes # (Manual) Eosinophils # (Manual) PT INR Fibrinogen dRVVT Confirm Interp Factor V Activity POC ABG pH POC ABG pCO2 POC ABG pO2 Sodium Potassium Chloride Carbon Dioxide 10 L BUN 103 H Creatinine 4.3 H Glucose 163 H POC Glucose 173 H 167 H Lactic Acid Calcium 6.5 L Phosphorus Magnesium Direct Bilirubin AST ALT Alkaline Phosphatase Lactate Dehydrogenase Troponin T C-Reactive Protein Total Protein Albumin Prealbumin Triglycerides Cholesterol LDL Cholesterol Direct HDL Cholesterol Urine pH Urine WBC (Auto) Urine Creatinine Urine Total Protein Vancomycin Trough Rheumatoid Factor Complement C4 Miscellaneous Test Crossmatch 09/24/16 09/24/16 09/24/16 20:15 21:02 23:48 WBC RBC Hgb Hct MCV MCH MCHC RDW Plt Count Lymph % (Auto) [place] % (Auto) Lymph # [place] # Baso # Seg Neutrophils % Seg Neuts % (Manual) Lymphocytes % (Manual) Monocytes % (Manual) Eosinophils % (Manual) Basophils % (Manual) Nucleated RBC % Seg Neutrophils # Seg Neutrophils # Man Lymphocytes # (Manual) Monocytes # (Manual) Eosinophils # (Manual) PT INR Fibrinogen dRVVT Confirm Interp Factor V Activity POC ABG pH 7.288 L POC ABG pCO2 30.2 L 21.5 L POC ABG pO2 32 L 39 L Sodium Potassium Chloride Carbon Dioxide BUN Creatinine Glucose POC Glucose 109 H Lactic Acid Calcium Phosphorus Magnesium Direct Bilirubin AST ALT Alkaline Phosphatase Lactate Dehydrogenase Troponin T C-Reactive Protein Total Protein Albumin Prealbumin Triglycerides Cholesterol LDL Cholesterol Direct HDL Cholesterol Urine pH Urine WBC (Auto) Urine Creatinine Urine Total Protein Vancomycin Trough Rheumatoid Factor Complement C4 Miscellaneous Test Crossmatch 09/25/16 09/25/16 09/25/16 04:20 04:20 04:20 WBC RBC 2.58 L Hgb 7.0 L Hct 21.0 L MCV MCH 27 L MCHC RDW 23.8 H Plt Count Lymph % (Auto) [place] % (Auto) Lymph # [place] # Baso # Seg Neutrophils % Seg Neuts % (Manual) Lymphocytes % (Manual) 12.0 L Monocytes % (Manual) Eosinophils % (Manual) 7.0 H Basophils % (Manual) 2.0 H Nucleated RBC % Seg Neutrophils # Seg Neutrophils # Man Lymphocytes # (Manual) 0.9 L Monocytes # (Manual) Eosinophils # (Manual) 0.5 H PT INR Fibrinogen dRVVT Confirm Interp Factor V Activity POC ABG pH POC ABG pCO2 POC ABG pO2 Sodium Potassium Chloride Carbon Dioxide 15 L BUN 72 H Creatinine 3.8 H Glucose POC Glucose Lactic Acid Calcium 6.0 L Phosphorus 4.60 H Magnesium 1.60 L Direct Bilirubin AST ALT Alkaline Phosphatase Lactate Dehydrogenase Troponin T C-Reactive Protein Total Protein Albumin Prealbumin Triglycerides Cholesterol LDL Cholesterol Direct HDL Cholesterol Urine pH Urine WBC (Auto) Urine Creatinine Urine Total Protein Vancomycin Trough Rheumatoid Factor Complement C4 Miscellaneous Test Crossmatch 09/25/16 09/25/16 09/25/16 04:57 08:02 10:30 WBC RBC Hgb Hct MCV MCH MCHC RDW Plt Count Lymph % (Auto) [place] % (Auto) Lymph # [place] # Baso # Seg Neutrophils % Seg Neuts % (Manual) Lymphocytes % (Manual) Monocytes % (Manual) Eosinophils % (Manual) Basophils % (Manual) Nucleated RBC % Seg Neutrophils # Seg Neutrophils # Man Lymphocytes # (Manual) Monocytes # (Manual) Eosinophils # (Manual) PT INR Fibrinogen dRVVT Confirm Interp Factor V Activity POC ABG pH POC ABG pCO2 24.7 L POC ABG pO2 152 H Sodium Potassium Chloride Carbon Dioxide BUN Creatinine Glucose POC Glucose 113 H Lactic Acid Calcium Phosphorus Magnesium Direct Bilirubin AST ALT Alkaline Phosphatase Lactate Dehydrogenase Troponin T C-Reactive Protein Total Protein Albumin Prealbumin Triglycerides Cholesterol LDL Cholesterol Direct HDL Cholesterol Urine pH Urine WBC (Auto) Urine Creatinine Urine Total Protein Vancomycin Trough Rheumatoid Factor Complement C4 Miscellaneous Test Crossmatch See Detail 09/25/16 09/25/16 09/25/16 12:05 17:44 23:47 WBC RBC Hgb Hct MCV MCH MCHC RDW Plt Count Lymph % (Auto) [place] % (Auto) Lymph # [place] # Baso # Seg Neutrophils % Seg Neuts % (Manual) Lymphocytes % (Manual) Monocytes % (Manual) Eosinophils % (Manual) Basophils % (Manual) Nucleated RBC % Seg Neutrophils # Seg Neutrophils # Man Lymphocytes # (Manual) Monocytes # (Manual) Eosinophils # (Manual) PT INR Fibrinogen dRVVT Confirm Interp Factor V Activity POC ABG pH POC ABG pCO2 POC ABG pO2 Sodium Potassium Chloride Carbon Dioxide BUN Creatinine Glucose POC Glucose 117 H 119 H 150 H Lactic Acid Calcium Phosphorus Magnesium Direct Bilirubin AST ALT Alkaline Phosphatase Lactate Dehydrogenase Troponin T C-Reactive Protein Total Protein Albumin Prealbumin Triglycerides Cholesterol LDL Cholesterol Direct HDL Cholesterol Urine pH Urine WBC (Auto) Urine Creatinine Urine Total Protein Vancomycin Trough Rheumatoid Factor Complement C4 Miscellaneous Test Crossmatch 09/26/16 09/26/16 09/26/16 04:25 04:25 04:25 WBC RBC 2.65 L Hgb 7.4 L Hct 21.6 L MCV MCH MCHC RDW 22.5 H Plt Count Lymph % (Auto) [place] % (Auto) Lymph # [place] # Baso # Seg Neutrophils % Seg Neuts % (Manual) Lymphocytes % (Manual) 6.0 L Monocytes % (Manual) Eosinophils % (Manual) 11.0 H Basophils % (Manual) Nucleated RBC % Seg Neutrophils # Seg Neutrophils # Man Lymphocytes # (Manual) 0.4 L Monocytes # (Manual) Eosinophils # (Manual) 0.6 H PT INR Fibrinogen dRVVT Confirm Interp Factor V Activity POC ABG pH POC ABG pCO2 POC ABG pO2 Sodium Potassium Chloride 97.0 L Carbon Dioxide 19 L BUN 43 H Creatinine 2.6 H Glucose 130 H POC Glucose Lactic Acid 4.40 H* Calcium 6.7 L Phosphorus Magnesium Direct Bilirubin AST ALT Alkaline Phosphatase Lactate Dehydrogenase Troponin T C-Reactive Protein Total Protein Albumin Prealbumin Triglycerides Cholesterol LDL Cholesterol Direct HDL Cholesterol Urine pH Urine WBC (Auto) Urine Creatinine Urine Total Protein Vancomycin Trough Rheumatoid Factor Complement C4 Miscellaneous Test Crossmatch 09/26/16 09/26/16 09/26/16 05:20 11:44 12:12 WBC RBC Hgb Hct MCV MCH MCHC RDW Plt Count Lymph % (Auto) [place] % (Auto) Lymph # [place] # Baso # Seg Neutrophils % Seg Neuts % (Manual) Lymphocytes % (Manual) Monocytes % (Manual) Eosinophils % (Manual) Basophils % (Manual) Nucleated RBC % Seg Neutrophils # Seg Neutrophils # Man Lymphocytes # (Manual) Monocytes # (Manual) Eosinophils # (Manual) PT INR Fibrinogen dRVVT Confirm Interp Factor V Activity POC ABG pH POC ABG pCO2 27.0 L POC ABG pO2 69 L Sodium Potassium Chloride Carbon Dioxide BUN Creatinine Glucose POC Glucose 121 H 128 H Lactic Acid Calcium Phosphorus Magnesium Direct Bilirubin AST ALT Alkaline Phosphatase Lactate Dehydrogenase Troponin T C-Reactive Protein Total Protein Albumin Prealbumin Triglycerides Cholesterol LDL Cholesterol Direct HDL Cholesterol Urine pH Urine WBC (Auto) Urine Creatinine Urine Total Protein Vancomycin Trough Rheumatoid Factor Complement C4 Miscellaneous Test Crossmatch 09/26/16 09/26/16 09/27/16 18:31 23:40 08:20 WBC RBC Hgb Hct MCV MCH MCHC RDW Plt Count Lymph % (Auto) [place] % (Auto) Lymph # [place] # Baso # Seg Neutrophils % Seg Neuts % (Manual) Lymphocytes % (Manual) Monocytes % (Manual) Eosinophils % (Manual) Basophils % (Manual) Nucleated RBC % Seg Neutrophils # Seg Neutrophils # Man Lymphocytes # (Manual) Monocytes # (Manual) Eosinophils # (Manual) PT INR Fibrinogen dRVVT Confirm Interp Factor V Activity POC ABG pH POC ABG pCO2 POC ABG pO2 Sodium Potassium Chloride Carbon Dioxide BUN Creatinine Glucose POC Glucose 120 H 133 H Lactic Acid 4.10 H* Calcium Phosphorus Magnesium Direct Bilirubin AST ALT Alkaline Phosphatase Lactate Dehydrogenase Troponin T C-Reactive Protein Total Protein Albumin Prealbumin Triglycerides Cholesterol LDL Cholesterol Direct HDL Cholesterol Urine pH Urine WBC (Auto) Urine Creatinine Urine Total Protein Vancomycin Trough Rheumatoid Factor Complement C4 Miscellaneous Test Crossmatch 09/27/16 09/27/16 09/27/16 11:23 15:00 18:15 WBC RBC Hgb Hct MCV MCH MCHC RDW Plt Count Lymph % (Auto) [place] % (Auto) Lymph # [place] # Baso # Seg Neutrophils % Seg Neuts % (Manual) Lymphocytes % (Manual) Monocytes % (Manual) Eosinophils % (Manual) Basophils % (Manual) Nucleated RBC % Seg Neutrophils # Seg Neutrophils # Man Lymphocytes # (Manual) Monocytes # (Manual) Eosinophils # (Manual) PT INR Fibrinogen dRVVT Confirm Interp Factor V Activity POC ABG pH 7.459 H POC ABG pCO2 27.1 L POC ABG pO2 140 H Sodium Potassium Chloride Carbon Dioxide BUN Creatinine Glucose POC Glucose 114 H 127 H Lactic Acid Calcium Phosphorus Magnesium Direct Bilirubin AST ALT Alkaline Phosphatase Lactate Dehydrogenase Troponin T C-Reactive Protein Total Protein Albumin Prealbumin Triglycerides Cholesterol LDL Cholesterol Direct HDL Cholesterol Urine pH Urine WBC (Auto) Urine Creatinine Urine Total Protein Vancomycin Trough Rheumatoid Factor Complement C4 Miscellaneous Test Crossmatch 09/27/16 09/27/16 09/28/16 Unknown Unknown 03:45 WBC RBC 2.49 L Hgb 6.8 L Hct 20.7 L MCV MCH 27 L MCHC RDW 22.1 H Plt Count Lymph % (Auto) [place] % (Auto) Lymph # [place] # Baso # Seg Neutrophils % Seg Neuts % (Manual) 32.0 L Lymphocytes % (Manual) 12.0 L Monocytes % (Manual) 11.0 H Eosinophils % (Manual) 10.0 H Basophils % (Manual) Nucleated RBC % Seg Neutrophils # Seg Neutrophils # Man Lymphocytes # (Manual) 1.0 L Monocytes # (Manual) 0.9 H Eosinophils # (Manual) 0.8 H PT INR Fibrinogen dRVVT Confirm Interp Factor V Activity POC ABG pH POC ABG pCO2 POC ABG pO2 Sodium 135 L 135 L Potassium 3.5 L Chloride 93.6 L 94.4 L Carbon Dioxide 17 L 21 L BUN 45 H 28 H Creatinine 3.3 H 2.5 H Glucose 106 H POC Glucose Lactic Acid Calcium 7.3 L 7.1 L Phosphorus Magnesium Direct Bilirubin AST ALT Alkaline Phosphatase Lactate Dehydrogenase Troponin T C-Reactive Protein Total Protein Albumin Prealbumin Triglycerides Cholesterol LDL Cholesterol Direct HDL Cholesterol Urine pH Urine WBC (Auto) Urine Creatinine Urine Total Protein Vancomycin Trough Rheumatoid Factor Complement C4 Miscellaneous Test Crossmatch 09/28/16 09/28/16 09/28/16 03:45 07:25 11:58 WBC 13.3 H RBC 3.01 L Hgb 8.4 L Hct 25.0 L MCV MCH MCHC RDW 20.5 H Plt Count 128 L Lymph % (Auto) [place] % (Auto) Lymph # [place] # Baso # Seg Neutrophils % Seg Neuts % (Manual) Lymphocytes % (Manual) 7.0 L Monocytes % (Manual) Eosinophils % (Manual) 6.0 H Basophils % (Manual) Nucleated RBC % Seg Neutrophils # Seg Neutrophils # Man Lymphocytes # (Manual) 0.9 L Monocytes # (Manual) Eosinophils # (Manual) 0.8 H PT INR Fibrinogen dRVVT Confirm Interp Factor V Activity POC ABG pH POC ABG pCO2 POC ABG pO2 Sodium Potassium Chloride Carbon Dioxide BUN Creatinine Glucose POC Glucose 121 H Lactic Acid 4.50 H* Calcium Phosphorus Magnesium Direct Bilirubin AST ALT Alkaline Phosphatase Lactate Dehydrogenase Troponin T C-Reactive Protein Total Protein Albumin Prealbumin Triglycerides Cholesterol LDL Cholesterol Direct HDL Cholesterol Urine pH Urine WBC (Auto) Urine Creatinine Urine Total Protein Vancomycin Trough Rheumatoid Factor Complement C4 Miscellaneous Test Crossmatch 09/29/16 09/29/16 09/29/16 06:45 06:45 06:45 WBC 14.9 H RBC 2.74 L Hgb 7.6 L Hct 23.2 L MCV MCH MCHC RDW 20.5 H Plt Count 81 L Lymph % (Auto) [place] % (Auto) Lymph # [place] # Baso # Seg Neutrophils % Seg Neuts % (Manual) 81.0 H Lymphocytes % (Manual) 4.0 L Monocytes % (Manual) Eosinophils % (Manual) Basophils % (Manual) Nucleated RBC % Seg Neutrophils # Seg Neutrophils # Man 12.1 H Lymphocytes # (Manual) 0.6 L Monocytes # (Manual) Eosinophils # (Manual) PT INR Fibrinogen dRVVT Confirm Interp Factor V Activity POC ABG pH POC ABG pCO2 POC ABG pO2 Sodium 133 L Potassium 3.4 L Chloride 92.5 L Carbon Dioxide 21 L BUN 33 H Creatinine 3.0 H Glucose POC Glucose Lactic Acid Calcium 6.6 L Phosphorus Magnesium 1.40 L Direct Bilirubin 0.9 H AST ALT Alkaline Phosphatase Lactate Dehydrogenase Troponin T C-Reactive Protein Total Protein 4.3 L Albumin 1.3 L Prealbumin Triglycerides Cholesterol LDL Cholesterol Direct HDL Cholesterol Urine pH Urine WBC (Auto) Urine Creatinine Urine Total Protein Vancomycin Trough Rheumatoid Factor Complement C4 Miscellaneous Test Crossmatch 09/29/16 09/29/16 09/30/16 17:52 20:12 00:07 WBC RBC Hgb Hct MCV MCH MCHC RDW Plt Count Lymph % (Auto) [place] % (Auto) Lymph # [place] # Baso # Seg Neutrophils % Seg Neuts % (Manual) Lymphocytes % (Manual) Monocytes % (Manual) Eosinophils % (Manual) Basophils % (Manual) Nucleated RBC % Seg Neutrophils # Seg Neutrophils # Man Lymphocytes # (Manual) Monocytes # (Manual) Eosinophils # (Manual) PT INR Fibrinogen dRVVT Confirm Interp Factor V Activity POC ABG pH POC ABG pCO2 POC ABG pO2 Sodium Potassium Chloride Carbon Dioxide BUN Creatinine Glucose POC Glucose 50 L 51 L Lactic Acid Calcium Phosphorus Magnesium Direct Bilirubin AST ALT Alkaline Phosphatase Lactate Dehydrogenase Troponin T 0.204 H* C-Reactive Protein Total Protein Albumin Prealbumin Triglycerides Cholesterol 31 L LDL Cholesterol Direct 4 L HDL Cholesterol 3 L Urine pH Urine WBC (Auto) Urine Creatinine Urine Total Protein Vancomycin Trough Rheumatoid Factor Complement C4 Miscellaneous Test Crossmatch 09/30/16 09/30/16 09/30/16 01:30 05:15 06:10 WBC RBC Hgb Hct MCV MCH MCHC RDW Plt Count Lymph % (Auto) [place] % (Auto) Lymph # [place] # Baso # Seg Neutrophils % Seg Neuts % (Manual) Lymphocytes % (Manual) Monocytes % (Manual) Eosinophils % (Manual) Basophils % (Manual) Nucleated RBC % Seg Neutrophils # Seg Neutrophils # Man Lymphocytes # (Manual) Monocytes # (Manual) Eosinophils # (Manual) PT INR Fibrinogen dRVVT Confirm Interp Factor V Activity POC ABG pH POC ABG pCO2 POC ABG pO2 Sodium 133 L Potassium 3.2 L Chloride 93.2 L Carbon Dioxide 19 L BUN 36 H Creatinine 3.2 H Glucose 104 H POC Glucose 167 H 146 H Lactic Acid Calcium 6.4 L Phosphorus Magnesium 1.60 L Direct Bilirubin AST ALT Alkaline Phosphatase Lactate Dehydrogenase Troponin T C-Reactive Protein Total Protein Albumin Prealbumin Triglycerides Cholesterol LDL Cholesterol Direct HDL Cholesterol Urine pH Urine WBC (Auto) Urine Creatinine Urine Total Protein Vancomycin Trough Rheumatoid Factor Complement C4 Miscellaneous Test Crossmatch 09/30/16 09/30/16 09/30/16 11:26 13:39 18:38 WBC RBC Hgb Hct MCV MCH MCHC RDW Plt Count Lymph % (Auto) [place] % (Auto) Lymph # [place] # Baso # Seg Neutrophils % Seg Neuts % (Manual) Lymphocytes % (Manual) Monocytes % (Manual) Eosinophils % (Manual) Basophils % (Manual) Nucleated RBC % Seg Neutrophils # Seg Neutrophils # Man Lymphocytes # (Manual) Monocytes # (Manual) Eosinophils # (Manual) PT INR Fibrinogen dRVVT Confirm Interp Factor V Activity POC ABG pH 7.479 H POC ABG pCO2 29.8 L POC ABG pO2 117 H Sodium Potassium Chloride Carbon Dioxide BUN Creatinine Glucose POC Glucose 140 H 122 H Lactic Acid Calcium Phosphorus Magnesium Direct Bilirubin AST ALT Alkaline Phosphatase Lactate Dehydrogenase Troponin T C-Reactive Protein Total Protein Albumin Prealbumin Triglycerides Cholesterol LDL Cholesterol Direct HDL Cholesterol Urine pH Urine WBC (Auto) Urine Creatinine Urine Total Protein Vancomycin Trough Rheumatoid Factor Complement C4 Miscellaneous Test Crossmatch 10/01/16 10/01/16 10/01/16 06:00 06:00 12:37 WBC 12.6 H RBC 2.75 L Hgb 7.3 L Hct 23.3 L MCV MCH 27 L MCHC RDW 20.6 H Plt Count 72 L Lymph % (Auto) [place] % (Auto) Lymph # [place] # Baso # Seg Neutrophils % Seg Neuts % (Manual) 31.0 L Lymphocytes % (Manual) 8.0 L Monocytes % (Manual) Eosinophils % (Manual) Basophils % (Manual) Nucleated RBC % 3.0 H Seg Neutrophils # Seg Neutrophils # Man Lymphocytes # (Manual) 1.0 L Monocytes # (Manual) Eosinophils # (Manual) PT INR Fibrinogen dRVVT Confirm Interp Factor V Activity POC ABG pH POC ABG pCO2 POC ABG pO2 Sodium 127 L Potassium Chloride 86.8 L Carbon Dioxide 20 L BUN 42 H Creatinine 3.5 H Glucose POC Glucose 65 L Lactic Acid Calcium 7.0 L Phosphorus Magnesium Direct Bilirubin AST ALT Alkaline Phosphatase Lactate Dehydrogenase Troponin T C-Reactive Protein Total Protein Albumin Prealbumin Triglycerides Cholesterol LDL Cholesterol Direct HDL Cholesterol Urine pH Urine WBC (Auto) Urine Creatinine Urine Total Protein Vancomycin Trough Rheumatoid Factor Complement C4 Miscellaneous Test Crossmatch 10/01/16 10/01/16 10/02/16 17:39 23:32 00:59 WBC RBC Hgb Hct MCV MCH MCHC RDW Plt Count Lymph % (Auto) [place] % (Auto) Lymph # [place] # Baso # Seg Neutrophils % Seg Neuts % (Manual) Lymphocytes % (Manual) Monocytes % (Manual) Eosinophils % (Manual) Basophils % (Manual) Nucleated RBC % Seg Neutrophils # Seg Neutrophils # Man Lymphocytes # (Manual) Monocytes # (Manual) Eosinophils # (Manual) PT INR Fibrinogen dRVVT Confirm Interp Factor V Activity POC ABG pH POC ABG pCO2 POC ABG pO2 Sodium Potassium Chloride Carbon Dioxide BUN Creatinine Glucose POC Glucose 107 H 52 L 145 H Lactic Acid Calcium Phosphorus Magnesium Direct Bilirubin AST ALT Alkaline Phosphatase Lactate Dehydrogenase Troponin T C-Reactive Protein Total Protein Albumin Prealbumin Triglycerides Cholesterol LDL Cholesterol Direct HDL Cholesterol Urine pH Urine WBC (Auto) Urine Creatinine Urine Total Protein Vancomycin Trough Rheumatoid Factor Complement C4 Miscellaneous Test Crossmatch 10/02/16 10/02/16 10/02/16 10:30 10:50 10:50 WBC 14.7 H RBC 2.76 L Hgb 7.4 L Hct 23.6 L MCV MCH 27 L MCHC RDW 20.2 H Plt Count 79 L Lymph % (Auto) [place] % (Auto) Lymph # [place] # Baso # Seg Neutrophils % Seg Neuts % (Manual) 86.0 H Lymphocytes % (Manual) 6.0 L Monocytes % (Manual) Eosinophils % (Manual) Basophils % (Manual) Nucleated RBC % Seg Neutrophils # Seg Neutrophils # Man 12.6 H Lymphocytes # (Manual) 0.9 L Monocytes # (Manual) Eosinophils # (Manual) PT INR Fibrinogen dRVVT Confirm Interp Factor V Activity POC ABG pH 7.486 H POC ABG pCO2 30.1 L POC ABG pO2 108 H Sodium 131 L Potassium 3.4 L Chloride 89.9 L Carbon Dioxide BUN 26 H Creatinine 2.6 H Glucose POC Glucose Lactic Acid Calcium 7.0 L Phosphorus Magnesium Direct Bilirubin AST ALT Alkaline Phosphatase Lactate Dehydrogenase Troponin T C-Reactive Protein Total Protein Albumin Prealbumin Triglycerides Cholesterol LDL Cholesterol Direct HDL Cholesterol Urine pH Urine WBC (Auto) Urine Creatinine Urine Total Protein Vancomycin Trough Rheumatoid Factor Complement C4 Miscellaneous Test Crossmatch 10/02/16 10/03/16 10/03/16 23:45 00:45 05:10 WBC 12.9 H RBC 2.77 L Hgb 7.6 L Hct 23.7 L MCV MCH 27 L MCHC RDW 19.7 H Plt Count 89 L Lymph % (Auto) [place] % (Auto) Lymph # [place] # Baso # Seg Neutrophils % Seg Neuts % (Manual) Lymphocytes % (Manual) 8.0 L Monocytes % (Manual) Eosinophils % (Manual) Basophils % (Manual) Nucleated RBC % Seg Neutrophils # 11.9 H Seg Neutrophils # Man Lymphocytes # (Manual) 1.0 L Monocytes # (Manual) Eosinophils # (Manual) PT INR Fibrinogen dRVVT Confirm Interp Factor V Activity POC ABG pH POC ABG pCO2 POC ABG pO2 Sodium Potassium Chloride Carbon Dioxide BUN Creatinine Glucose POC Glucose 55 L 199 H Lactic Acid Calcium Phosphorus Magnesium Direct Bilirubin AST ALT Alkaline Phosphatase Lactate Dehydrogenase Troponin T C-Reactive Protein Total Protein Albumin Prealbumin Triglycerides Cholesterol LDL Cholesterol Direct HDL Cholesterol Urine pH Urine WBC (Auto) Urine Creatinine Urine Total Protein Vancomycin Trough Rheumatoid Factor Complement C4 Miscellaneous Test Crossmatch 10/03/16 10/03/16 10/03/16 05:10 12:14 13:18 WBC RBC Hgb Hct MCV MCH MCHC RDW Plt Count Lymph % (Auto) [place] % (Auto) Lymph # [place] # Baso # Seg Neutrophils % Seg Neuts % (Manual) Lymphocytes % (Manual) Monocytes % (Manual) Eosinophils % (Manual) Basophils % (Manual) Nucleated RBC % Seg Neutrophils # Seg Neutrophils # Man Lymphocytes # (Manual) Monocytes # (Manual) Eosinophils # (Manual) PT INR Fibrinogen dRVVT Confirm Interp Factor V Activity POC ABG pH POC ABG pCO2 POC ABG pO2 Sodium 129 L Potassium 3.3 L Chloride 88.8 L Carbon Dioxide 20 L BUN 29 H Creatinine 2.8 H Glucose POC Glucose 68 L 127 H Lactic Acid Calcium 7.2 L Phosphorus Magnesium Direct Bilirubin AST ALT Alkaline Phosphatase Lactate Dehydrogenase Troponin T C-Reactive Protein Total Protein Albumin Prealbumin Triglycerides Cholesterol LDL Cholesterol Direct HDL Cholesterol Urine pH Urine WBC (Auto) Urine Creatinine Urine Total Protein Vancomycin Trough Rheumatoid Factor Complement C4 Miscellaneous Test Crossmatch 10/03/16 10/03/16 10/03/16 14:42 18:21 19:09 WBC RBC Hgb Hct MCV MCH MCHC RDW Plt Count Lymph % (Auto) [place] % (Auto) Lymph # [place] # Baso # Seg Neutrophils % Seg Neuts % (Manual) Lymphocytes % (Manual) Monocytes % (Manual) Eosinophils % (Manual) Basophils % (Manual) Nucleated RBC % Seg Neutrophils # Seg Neutrophils # Man Lymphocytes # (Manual) Monocytes # (Manual) Eosinophils # (Manual) PT INR Fibrinogen dRVVT Confirm Interp Factor V Activity POC ABG pH 7.499 H POC ABG pCO2 28.4 L POC ABG pO2 44 L Sodium Potassium Chloride Carbon Dioxide BUN Creatinine Glucose POC Glucose 64 L 205 H Lactic Acid Calcium Phosphorus Magnesium Direct Bilirubin AST ALT Alkaline Phosphatase Lactate Dehydrogenase Troponin T C-Reactive Protein Total Protein Albumin Prealbumin Triglycerides Cholesterol LDL Cholesterol Direct HDL Cholesterol Urine pH Urine WBC (Auto) Urine Creatinine Urine Total Protein Vancomycin Trough Rheumatoid Factor Complement C4 Miscellaneous Test Crossmatch 10/03/16 10/04/16 10/04/16 23:33 04:18 06:30 WBC RBC 2.54 L Hgb 7.1 L Hct 21.7 L MCV MCH MCHC RDW 19.5 H Plt Count 76 L Lymph % (Auto) [place] % (Auto) Lymph # [place] # Baso # Seg Neutrophils % Seg Neuts % (Manual) 88.0 H Lymphocytes % (Manual) 6.0 L Monocytes % (Manual) Eosinophils % (Manual) Basophils % (Manual) Nucleated RBC % Seg Neutrophils # Seg Neutrophils # Man 8.8 H Lymphocytes # (Manual) 0.6 L Monocytes # (Manual) Eosinophils # (Manual) PT INR Fibrinogen dRVVT Confirm Interp Factor V Activity POC ABG pH 7.461 H POC ABG pCO2 33.6 L POC ABG pO2 211 H Sodium Potassium Chloride Carbon Dioxide BUN Creatinine Glucose POC Glucose 136 H Lactic Acid Calcium Phosphorus Magnesium Direct Bilirubin AST ALT Alkaline Phosphatase Lactate Dehydrogenase Troponin T C-Reactive Protein Total Protein Albumin Prealbumin Triglycerides Cholesterol LDL Cholesterol Direct HDL Cholesterol Urine pH Urine WBC (Auto) Urine Creatinine Urine Total Protein Vancomycin Trough Rheumatoid Factor Complement C4 Miscellaneous Test Crossmatch 10/04/16 10/04/16 10/04/16 06:30 11:45 17:54 WBC RBC Hgb Hct MCV MCH MCHC RDW Plt Count Lymph % (Auto) [place] % (Auto) Lymph # [place] # Baso # Seg Neutrophils % Seg Neuts % (Manual) Lymphocytes % (Manual) Monocytes % (Manual) Eosinophils % (Manual) Basophils % (Manual) Nucleated RBC % Seg Neutrophils # Seg Neutrophils # Man Lymphocytes # (Manual) Monocytes # (Manual) Eosinophils # (Manual) PT INR Fibrinogen dRVVT Confirm Interp Factor V Activity POC ABG pH POC ABG pCO2 POC ABG pO2 Sodium 128 L Potassium Chloride 87.4 L Carbon Dioxide 20 L BUN 34 H Creatinine 2.9 H Glucose 127 H POC Glucose 158 H 160 H Lactic Acid Calcium 7.4 L Phosphorus Magnesium Direct Bilirubin AST ALT Alkaline Phosphatase Lactate Dehydrogenase Troponin T C-Reactive Protein Total Protein Albumin Prealbumin Triglycerides Cholesterol LDL Cholesterol Direct HDL Cholesterol Urine pH Urine WBC (Auto) Urine Creatinine Urine Total Protein Vancomycin Trough Rheumatoid Factor Complement C4 Miscellaneous Test Crossmatch 10/04/16 10/05/16 10/05/16 23:25 04:30 05:00 WBC RBC 2.64 L Hgb 7.5 L Hct 22.6 L MCV MCH MCHC RDW 19.3 H Plt Count 80 L Lymph % (Auto) [place] % (Auto) Lymph # [place] # Baso # Seg Neutrophils % Seg Neuts % (Manual) Lymphocytes % (Manual) 12.0 L Monocytes % (Manual) Eosinophils % (Manual) Basophils % (Manual) Nucleated RBC % Seg Neutrophils # Seg Neutrophils # Man Lymphocytes # (Manual) Monocytes # (Manual) Eosinophils # (Manual) PT INR Fibrinogen dRVVT Confirm Interp Factor V Activity POC ABG pH 7.475 H POC ABG pCO2 33.3 L POC ABG pO2 140 H Sodium Potassium Chloride Carbon Dioxide BUN Creatinine Glucose POC Glucose 141 H Lactic Acid Calcium Phosphorus Magnesium Direct Bilirubin AST ALT Alkaline Phosphatase Lactate Dehydrogenase Troponin T C-Reactive Protein Total Protein Albumin Prealbumin Triglycerides Cholesterol LDL Cholesterol Direct HDL Cholesterol Urine pH Urine WBC (Auto) Urine Creatinine Urine Total Protein Vancomycin Trough Rheumatoid Factor Complement C4 Miscellaneous Test Crossmatch 10/05/16 10/05/16 10/05/16 05:00 05:09 12:58 WBC RBC Hgb Hct MCV MCH MCHC RDW Plt Count Lymph % (Auto) [place] % (Auto) Lymph # [place] # Baso # Seg Neutrophils % Seg Neuts % (Manual) Lymphocytes % (Manual) Monocytes % (Manual) Eosinophils % (Manual) Basophils % (Manual) Nucleated RBC % Seg Neutrophils # Seg Neutrophils # Man Lymphocytes # (Manual) Monocytes # (Manual) Eosinophils # (Manual) PT INR Fibrinogen dRVVT Confirm Interp Factor V Activity POC ABG pH POC ABG pCO2 POC ABG pO2 Sodium 131 L Potassium Chloride 94.0 L Carbon Dioxide 20 L BUN 22 H Creatinine 2.0 H Glucose 123 H POC Glucose 166 H 179 H Lactic Acid Calcium 7.7 L Phosphorus 2.20 L D Magnesium Direct Bilirubin AST ALT Alkaline Phosphatase Lactate Dehydrogenase Troponin T C-Reactive Protein Total Protein Albumin Prealbumin Triglycerides Cholesterol LDL Cholesterol Direct HDL Cholesterol Urine pH Urine WBC (Auto) Urine Creatinine Urine Total Protein Vancomycin Trough Rheumatoid Factor Complement C4 Miscellaneous Test Crossmatch 10/05/16 10/05/16 10/05/16 15:50 18:53 23:12 WBC RBC Hgb Hct MCV MCH MCHC RDW Plt Count Lymph % (Auto) [place] % (Auto) Lymph # [place] # Baso # Seg Neutrophils % Seg Neuts % (Manual) Lymphocytes % (Manual) Monocytes % (Manual) Eosinophils % (Manual) Basophils % (Manual) Nucleated RBC % Seg Neutrophils # Seg Neutrophils # Man Lymphocytes # (Manual) Monocytes # (Manual) Eosinophils # (Manual) PT INR Fibrinogen dRVVT Confirm Interp Factor V Activity POC ABG pH POC ABG pCO2 POC ABG pO2 Sodium Potassium Chloride Carbon Dioxide BUN Creatinine Glucose POC Glucose 150 H 164 H Lactic Acid Calcium Phosphorus Magnesium Direct Bilirubin AST ALT Alkaline Phosphatase Lactate Dehydrogenase Troponin T C-Reactive Protein Total Protein Albumin Prealbumin Triglycerides Cholesterol LDL Cholesterol Direct HDL Cholesterol Urine pH Urine WBC (Auto) Urine Creatinine Urine Total Protein Vancomycin Trough Rheumatoid Factor Complement C4 Miscellaneous Test Crossmatch See Detail 10/06/16 10/06/16 10/06/16 03:50 03:50 04:53 WBC RBC 3.00 L Hgb 8.6 L Hct 25.8 L MCV MCH MCHC RDW 17.9 H Plt Count 65 L Lymph % (Auto) [place] % (Auto) Lymph # [place] # Baso # Seg Neutrophils % Seg Neuts % (Manual) 30.0 L Lymphocytes % (Manual) 5.0 L Monocytes % (Manual) Eosinophils % (Manual) Basophils % (Manual) Nucleated RBC % Seg Neutrophils # Seg Neutrophils # Man Lymphocytes # (Manual) 0.4 L Monocytes # (Manual) Eosinophils # (Manual) PT INR Fibrinogen dRVVT Confirm Interp Factor V Activity POC ABG pH 7.310 L POC ABG pCO2 49.0 H POC ABG pO2 Sodium 133 L Potassium Chloride 95.9 L Carbon Dioxide BUN 26 H Creatinine 2.0 H Glucose 116 H POC Glucose Lactic Acid Calcium 7.8 L Phosphorus Magnesium Direct Bilirubin AST ALT Alkaline Phosphatase Lactate Dehydrogenase Troponin T C-Reactive Protein Total Protein Albumin Prealbumin Triglycerides Cholesterol LDL Cholesterol Direct HDL Cholesterol Urine pH Urine WBC (Auto) Urine Creatinine Urine Total Protein Vancomycin Trough Rheumatoid Factor Complement C4 Miscellaneous Test Crossmatch 10/06/16 10/06/16 10/06/16 05:23 11:52 18:34 WBC RBC Hgb Hct MCV MCH MCHC RDW Plt Count Lymph % (Auto) [place] % (Auto) Lymph # [place] # Baso # Seg Neutrophils % Seg Neuts % (Manual) Lymphocytes % (Manual) Monocytes % (Manual) Eosinophils % (Manual) Basophils % (Manual) Nucleated RBC % Seg Neutrophils # Seg Neutrophils # Man Lymphocytes # (Manual) Monocytes # (Manual) Eosinophils # (Manual) PT INR Fibrinogen dRVVT Confirm Interp Factor V Activity POC ABG pH POC ABG pCO2 POC ABG pO2 Sodium Potassium Chloride Carbon Dioxide BUN Creatinine Glucose POC Glucose 126 H 116 H 129 H Lactic Acid Calcium Phosphorus Magnesium Direct Bilirubin AST ALT Alkaline Phosphatase Lactate Dehydrogenase Troponin T C-Reactive Protein Total Protein Albumin Prealbumin Triglycerides Cholesterol LDL Cholesterol Direct HDL Cholesterol Urine pH Urine WBC (Auto) Urine Creatinine Urine Total Protein Vancomycin Trough Rheumatoid Factor Complement C4 Miscellaneous Test Crossmatch 10/07/16 10/07/16 10/07/16 03:45 05:00 10:00 WBC 17.0 H RBC 2.68 L Hgb 7.3 L Hct 25.3 L MCV MCH 27 L MCHC 29 L RDW 19.6 H Plt Count 74 L Lymph % (Auto) [place] % (Auto) Lymph # [place] # Baso # Seg Neutrophils % Seg Neuts % (Manual) Lymphocytes % (Manual) 12.0 L Monocytes % (Manual) Eosinophils % (Manual) Basophils % (Manual) Nucleated RBC % 4.0 H Seg Neutrophils # Seg Neutrophils # Man 10.7 H Lymphocytes # (Manual) Monocytes # (Manual) Eosinophils # (Manual) PT INR Fibrinogen dRVVT Confirm Interp Factor V Activity POC ABG pH POC ABG pCO2 POC ABG pO2 Sodium 130 L Potassium 3.2 L Chloride 93.9 L Carbon Dioxide 20 L BUN 44 H Creatinine 2.7 H Glucose 129 H POC Glucose Lactic Acid Calcium 7.4 L Phosphorus Magnesium Direct Bilirubin AST ALT 6 L Alkaline Phosphatase 195 H Lactate Dehydrogenase Troponin T C-Reactive Protein Total Protein 4.9 L Albumin 1.0 L Prealbumin Triglycerides Cholesterol LDL Cholesterol Direct HDL Cholesterol Urine pH Urine WBC (Auto) Urine Creatinine Urine Total Protein Vancomycin Trough Rheumatoid Factor Complement C4 Miscellaneous Test Flexitest 1 H Crossmatch 10/07/16 10/07/16 10/07/16 10:00 11:24 18:10 WBC RBC Hgb Hct MCV MCH MCHC RDW Plt Count Lymph % (Auto) [place] % (Auto) Lymph # [place] # Baso # Seg Neutrophils % Seg Neuts % (Manual) Lymphocytes % (Manual) Monocytes % (Manual) Eosinophils % (Manual) Basophils % (Manual) Nucleated RBC % Seg Neutrophils # Seg Neutrophils # Man Lymphocytes # (Manual) Monocytes # (Manual) Eosinophils # (Manual) PT INR Fibrinogen dRVVT Confirm Interp Factor V Activity POC ABG pH POC ABG pCO2 POC ABG pO2 Sodium Potassium Chloride Carbon Dioxide BUN Creatinine Glucose POC Glucose 116 H 130 H Lactic Acid Calcium Phosphorus Magnesium Direct Bilirubin AST ALT Alkaline Phosphatase Lactate Dehydrogenase Troponin T C-Reactive Protein 19.40 H Total Protein Albumin Prealbumin Triglycerides Cholesterol LDL Cholesterol Direct HDL Cholesterol Urine pH Urine WBC (Auto) Urine Creatinine Urine Total Protein Vancomycin Trough Rheumatoid Factor Complement C4 Miscellaneous Test Crossmatch 10/07/16 10/08/16 10/08/16 18:30 00:00 04:00 WBC RBC Hgb Hct MCV MCH MCHC RDW Plt Count Lymph % (Auto) [place] % (Auto) Lymph # [place] # Baso # Seg Neutrophils % Seg Neuts % (Manual) Lymphocytes % (Manual) Monocytes % (Manual) Eosinophils % (Manual) Basophils % (Manual) Nucleated RBC % Seg Neutrophils # Seg Neutrophils # Man Lymphocytes # (Manual) Monocytes # (Manual) Eosinophils # (Manual) PT INR Fibrinogen dRVVT Confirm Interp Factor V Activity POC ABG pH POC ABG pCO2 POC ABG pO2 Sodium 132 L Potassium 3.3 L Chloride 93.6 L Carbon Dioxide 17 L BUN 59 H Creatinine 2.7 H Glucose 121 H POC Glucose 122 H Lactic Acid Calcium 7.6 L Phosphorus Magnesium Direct Bilirubin AST ALT Alkaline Phosphatase Lactate Dehydrogenase Troponin T C-Reactive Protein Total Protein Albumin Prealbumin Triglycerides Cholesterol LDL Cholesterol Direct HDL Cholesterol Urine pH Urine WBC (Auto) > 182.0 H Urine Creatinine Urine Total Protein Vancomycin Trough Rheumatoid Factor Complement C4 Miscellaneous Test Crossmatch 10/08/16 10/08/16 10/08/16 04:30 05:30 11:51 WBC RBC 5.15 H Hgb 14.4 H D Hct 44.5 H D MCV MCH MCHC RDW 19.5 H Plt Count 56 L Lymph % (Auto) [place] % (Auto) Lymph # [place] # Baso # Seg Neutrophils % Seg Neuts % (Manual) 24.0 L Lymphocytes % (Manual) 8.0 L Monocytes % (Manual) Eosinophils % (Manual) Basophils % (Manual) Nucleated RBC % 9.0 H Seg Neutrophils # Seg Neutrophils # Man Lymphocytes # (Manual) 0.7 L Monocytes # (Manual) Eosinophils # (Manual) PT INR Fibrinogen dRVVT Confirm Interp Factor V Activity POC ABG pH POC ABG pCO2 POC ABG pO2 Sodium Potassium Chloride Carbon Dioxide BUN Creatinine Glucose POC Glucose 125 H 150 H Lactic Acid Calcium Phosphorus Magnesium Direct Bilirubin AST ALT Alkaline Phosphatase Lactate Dehydrogenase Troponin T C-Reactive Protein Total Protein Albumin Prealbumin Triglycerides Cholesterol LDL Cholesterol Direct HDL Cholesterol Urine pH Urine WBC (Auto) Urine Creatinine Urine Total Protein Vancomycin Trough Rheumatoid Factor Complement C4 Miscellaneous Test Crossmatch 10/08/16 10/08/16 10/08/16 12:49 17:07 19:30 WBC RBC Hgb 7.1 L D Hct 22.4 L D MCV MCH MCHC RDW Plt Count Lymph % (Auto) [place] % (Auto) Lymph # [place] # Baso # Seg Neutrophils % Seg Neuts % (Manual) Lymphocytes % (Manual) Monocytes % (Manual) Eosinophils % (Manual) Basophils % (Manual) Nucleated RBC % Seg Neutrophils # Seg Neutrophils # Man Lymphocytes # (Manual) Monocytes # (Manual) Eosinophils # (Manual) PT INR Fibrinogen dRVVT Confirm Interp Factor V Activity POC ABG pH POC ABG pCO2 28.2 L POC ABG pO2 111 H Sodium Potassium Chloride Carbon Dioxide BUN Creatinine Glucose POC Glucose 145 H Lactic Acid Calcium Phosphorus Magnesium Direct Bilirubin AST ALT Alkaline Phosphatase Lactate Dehydrogenase Troponin T C-Reactive Protein Total Protein Albumin Prealbumin Triglycerides Cholesterol LDL Cholesterol Direct HDL Cholesterol Urine pH Urine WBC (Auto) Urine Creatinine Urine Total Protein Vancomycin Trough Rheumatoid Factor Complement C4 Miscellaneous Test Crossmatch 10/08/16 10/09/16 10/09/16 19:30 03:45 03:45 WBC 12.6 H RBC 2.36 L Hgb 6.7 L Hct 21.1 L MCV MCH MCHC RDW 19.5 H Plt Count 75 L Lymph % (Auto) [place] % (Auto) Lymph # [place] # Baso # Seg Neutrophils % Seg Neuts % (Manual) Lymphocytes % (Manual) Monocytes % (Manual) 10.0 H Eosinophils % (Manual) Basophils % (Manual) Nucleated RBC % 3.0 H Seg Neutrophils # Seg Neutrophils # Man Lymphocytes # (Manual) Monocytes # (Manual) 1.3 H Eosinophils # (Manual) PT 18.0 H INR 1.41 H Fibrinogen dRVVT Confirm Interp Factor V Activity POC ABG pH POC ABG pCO2 POC ABG pO2 Sodium 135 L Potassium Chloride Carbon Dioxide 17 L BUN 81 H Creatinine 3.2 H Glucose 109 H POC Glucose Lactic Acid Calcium 7.4 L Phosphorus 4.60 H D Magnesium Direct Bilirubin AST ALT Alkaline Phosphatase Lactate Dehydrogenase Troponin T C-Reactive Protein Total Protein Albumin Prealbumin Triglycerides Cholesterol LDL Cholesterol Direct HDL Cholesterol Urine pH Urine WBC (Auto) Urine Creatinine Urine Total Protein Vancomycin Trough Rheumatoid Factor Complement C4 Miscellaneous Test Crossmatch 10/09/16 10/09/16 10/09/16 03:45 05:14 07:20 WBC RBC Hgb Hct MCV MCH MCHC RDW Plt Count Lymph % (Auto) [place] % (Auto) Lymph # [place] # Baso # Seg Neutrophils % Seg Neuts % (Manual) Lymphocytes % (Manual) Monocytes % (Manual) Eosinophils % (Manual) Basophils % (Manual) Nucleated RBC % Seg Neutrophils # Seg Neutrophils # Man Lymphocytes # (Manual) Monocytes # (Manual) Eosinophils # (Manual) PT 19.0 H INR 1.51 H Fibrinogen dRVVT Confirm Interp Factor V Activity POC ABG pH POC ABG pCO2 POC ABG pO2 Sodium Potassium Chloride Carbon Dioxide BUN Creatinine Glucose POC Glucose 151 H Lactic Acid Calcium Phosphorus Magnesium Direct Bilirubin AST ALT Alkaline Phosphatase Lactate Dehydrogenase Troponin T C-Reactive Protein Total Protein Albumin Prealbumin Triglycerides Cholesterol LDL Cholesterol Direct HDL Cholesterol Urine pH Urine WBC (Auto) Urine Creatinine Urine Total Protein Vancomycin Trough Rheumatoid Factor Complement C4 Miscellaneous Test Crossmatch See Detail 10/09/16 10/09/16 10/09/16 11:46 16:20 16:43 WBC RBC Hgb 7.2 L Hct 22.2 L MCV MCH MCHC RDW Plt Count Lymph % (Auto) [place] % (Auto) Lymph # [place] # Baso # Seg Neutrophils % Seg Neuts % (Manual) Lymphocytes % (Manual) Monocytes % (Manual) Eosinophils % (Manual) Basophils % (Manual) Nucleated RBC % Seg Neutrophils # Seg Neutrophils # Man Lymphocytes # (Manual) Monocytes # (Manual) Eosinophils # (Manual) PT INR Fibrinogen dRVVT Confirm Interp Factor V Activity POC ABG pH POC ABG pCO2 POC ABG pO2 Sodium Potassium Chloride Carbon Dioxide BUN Creatinine Glucose POC Glucose 133 H 141 H Lactic Acid Calcium Phosphorus Magnesium Direct Bilirubin AST ALT Alkaline Phosphatase Lactate Dehydrogenase Troponin T C-Reactive Protein Total Protein Albumin Prealbumin Triglycerides Cholesterol LDL Cholesterol Direct HDL Cholesterol Urine pH Urine WBC (Auto) Urine Creatinine Urine Total Protein Vancomycin Trough Rheumatoid Factor Complement C4 Miscellaneous Test Crossmatch 10/10/16 10/10/16 10/10/16 05:00 05:00 11:19 WBC 18.5 H RBC 2.19 L Hgb 6.4 L Hct 19.6 L* MCV MCH MCHC RDW 19.3 H Plt Count 93 L Lymph % (Auto) [place] % (Auto) Lymph # [place] # Baso # Seg Neutrophils % Seg Neuts % (Manual) Lymphocytes % (Manual) 10.0 L Monocytes % (Manual) Eosinophils % (Manual) Basophils % (Manual) Nucleated RBC % 4.0 H Seg Neutrophils # Seg Neutrophils # Man 11.3 H Lymphocytes # (Manual) Monocytes # (Manual) Eosinophils # (Manual) PT INR Fibrinogen dRVVT Confirm Interp Factor V Activity POC ABG pH POC ABG pCO2 POC ABG pO2 Sodium Potassium 5.7 H D Chloride Carbon Dioxide 16 L BUN 94 H Creatinine 3.1 H Glucose 131 H POC Glucose 153 H Lactic Acid Calcium 8.2 L Phosphorus 5.10 H Magnesium 2.40 H Direct Bilirubin 0.3 H AST ALT < 5 L Alkaline Phosphatase 319 H Lactate Dehydrogenase Troponin T C-Reactive Protein Total Protein 5.1 L Albumin 1.0 L Prealbumin Triglycerides Cholesterol LDL Cholesterol Direct HDL Cholesterol Urine pH Urine WBC (Auto) Urine Creatinine Urine Total Protein Vancomycin Trough Rheumatoid Factor Complement C4 Miscellaneous Test Crossmatch 10/10/16 10/10/16 10/11/16 17:50 23:30 04:15 WBC RBC Hgb Hct MCV MCH MCHC RDW Plt Count Lymph % (Auto) [place] % (Auto) Lymph # [place] # Baso # Seg Neutrophils % Seg Neuts % (Manual) Lymphocytes % (Manual) Monocytes % (Manual) Eosinophils % (Manual) Basophils % (Manual) Nucleated RBC % Seg Neutrophils # Seg Neutrophils # Man Lymphocytes # (Manual) Monocytes # (Manual) Eosinophils # (Manual) PT INR Fibrinogen dRVVT Confirm Interp Factor V Activity POC ABG pH POC ABG pCO2 POC ABG pO2 Sodium Potassium Chloride 96.4 L Carbon Dioxide 21 L BUN 57 H Creatinine 2.1 H Glucose 151 H POC Glucose 146 H 141 H Lactic Acid Calcium 8.3 L Phosphorus Magnesium Direct Bilirubin AST ALT Alkaline Phosphatase Lactate Dehydrogenase Troponin T C-Reactive Protein Total Protein Albumin Prealbumin Triglycerides Cholesterol LDL Cholesterol Direct HDL Cholesterol Urine pH Urine WBC (Auto) Urine Creatinine Urine Total Protein Vancomycin Trough Rheumatoid Factor Complement C4 Miscellaneous Test Crossmatch 10/11/16 10/11/16 10/11/16 04:15 04:15 05:30 WBC 28.3 H RBC 3.12 L Hgb 9.3 L Hct 28.7 L D MCV MCH MCHC RDW 17.7 H Plt Count 128 L Lymph % (Auto) [place] % (Auto) Lymph # [place] # Baso # Seg Neutrophils % Seg Neuts % (Manual) Lymphocytes % (Manual) Monocytes % (Manual) Eosinophils % (Manual) Basophils % (Manual) Nucleated RBC % Seg Neutrophils # Seg Neutrophils # Man Lymphocytes # (Manual) Monocytes # (Manual) Eosinophils # (Manual) PT INR Fibrinogen dRVVT Confirm Interp Factor V Activity POC ABG pH POC ABG pCO2 POC ABG pO2 Sodium Potassium Chloride Carbon Dioxide BUN Creatinine Glucose POC Glucose 167 H Lactic Acid Calcium Phosphorus Magnesium Direct Bilirubin AST ALT Alkaline Phosphatase Lactate Dehydrogenase Troponin T C-Reactive Protein 15.80 H Total Protein Albumin Prealbumin Triglycerides Cholesterol LDL Cholesterol Direct HDL Cholesterol Urine pH Urine WBC (Auto) Urine Creatinine Urine Total Protein Vancomycin Trough Rheumatoid Factor Complement C4 Miscellaneous Test Crossmatch 10/11/16 10/11/16 10/11/16 11:40 15:49 23:57 WBC RBC Hgb Hct MCV MCH MCHC RDW Plt Count Lymph % (Auto) [place] % (Auto) Lymph # [place] # Baso # Seg Neutrophils % Seg Neuts % (Manual) Lymphocytes % (Manual) Monocytes % (Manual) Eosinophils % (Manual) Basophils % (Manual) Nucleated RBC % Seg Neutrophils # Seg Neutrophils # Man Lymphocytes # (Manual) Monocytes # (Manual) Eosinophils # (Manual) PT INR Fibrinogen dRVVT Confirm Interp Factor V Activity POC ABG pH POC ABG pCO2 POC ABG pO2 Sodium Potassium Chloride Carbon Dioxide BUN Creatinine Glucose POC Glucose 139 H 168 H 161 H Lactic Acid Calcium Phosphorus Magnesium Direct Bilirubin AST ALT Alkaline Phosphatase Lactate Dehydrogenase Troponin T C-Reactive Protein Total Protein Albumin Prealbumin Triglycerides Cholesterol LDL Cholesterol Direct HDL Cholesterol Urine pH Urine WBC (Auto) Urine Creatinine Urine Total Protein Vancomycin Trough Rheumatoid Factor Complement C4 Miscellaneous Test Crossmatch 10/12/16 10/12/16 10/12/16 04:40 04:40 05:44 WBC 22.5 H RBC 2.88 L Hgb 8.8 L Hct 26.8 L MCV MCH MCHC RDW 17.8 H Plt Count Lymph % (Auto) [place] % (Auto) Lymph # [place] # Baso # Seg Neutrophils % Seg Neuts % (Manual) Lymphocytes % (Manual) Monocytes % (Manual) Eosinophils % (Manual) Basophils % (Manual) Nucleated RBC % Seg Neutrophils # Seg Neutrophils # Man Lymphocytes # (Manual) Monocytes # (Manual) Eosinophils # (Manual) PT INR Fibrinogen dRVVT Confirm Interp Factor V Activity POC ABG pH POC ABG pCO2 POC ABG pO2 Sodium 134 L Potassium Chloride 93.0 L Carbon Dioxide BUN 74 H Creatinine 2.5 H Glucose 137 H POC Glucose 158 H Lactic Acid Calcium 8.2 L Phosphorus Magnesium Direct Bilirubin AST ALT Alkaline Phosphatase Lactate Dehydrogenase Troponin T C-Reactive Protein Total Protein Albumin Prealbumin Triglycerides Cholesterol LDL Cholesterol Direct HDL Cholesterol Urine pH Urine WBC (Auto) Urine Creatinine Urine Total Protein Vancomycin Trough Rheumatoid Factor Complement C4 Miscellaneous Test Crossmatch 10/12/16 10/12/16 10/12/16 12:27 18:18 23:46 WBC RBC Hgb Hct MCV MCH MCHC RDW Plt Count Lymph % (Auto) [place] % (Auto) Lymph # [place] # Baso # Seg Neutrophils % Seg Neuts % (Manual) Lymphocytes % (Manual) Monocytes % (Manual) Eosinophils % (Manual) Basophils % (Manual) Nucleated RBC % Seg Neutrophils # Seg Neutrophils # Man Lymphocytes # (Manual) Monocytes # (Manual) Eosinophils # (Manual) PT INR Fibrinogen dRVVT Confirm Interp Factor V Activity POC ABG pH POC ABG pCO2 POC ABG pO2 Sodium Potassium Chloride Carbon Dioxide BUN Creatinine Glucose POC Glucose 153 H 140 H 150 H Lactic Acid Calcium Phosphorus Magnesium Direct Bilirubin AST ALT Alkaline Phosphatase Lactate Dehydrogenase Troponin T C-Reactive Protein Total Protein Albumin Prealbumin Triglycerides Cholesterol LDL Cholesterol Direct HDL Cholesterol Urine pH Urine WBC (Auto) Urine Creatinine Urine Total Protein Vancomycin Trough Rheumatoid Factor Complement C4 Miscellaneous Test Crossmatch 10/13/16 10/13/16 10/13/16 06:22 09:20 12:29 WBC RBC Hgb Hct MCV MCH MCHC RDW Plt Count Lymph % (Auto) [place] % (Auto) Lymph # [place] # Baso # Seg Neutrophils % Seg Neuts % (Manual) Lymphocytes % (Manual) Monocytes % (Manual) Eosinophils % (Manual) Basophils % (Manual) Nucleated RBC % Seg Neutrophils # Seg Neutrophils # Man Lymphocytes # (Manual) Monocytes # (Manual) Eosinophils # (Manual) PT INR Fibrinogen dRVVT Confirm Interp Factor V Activity POC ABG pH POC ABG pCO2 POC ABG pO2 Sodium Potassium Chloride Carbon Dioxide BUN Creatinine Glucose POC Glucose 165 H 193 H Lactic Acid Calcium Phosphorus Magnesium Direct Bilirubin AST ALT Alkaline Phosphatase Lactate Dehydrogenase Troponin T C-Reactive Protein Total Protein Albumin Prealbumin Triglycerides Cholesterol LDL Cholesterol Direct HDL Cholesterol Urine pH Urine WBC (Auto) Urine Creatinine Urine Total Protein Vancomycin Trough Rheumatoid Factor Complement C4 Miscellaneous Test Flexitest 1 H Crossmatch 10/13/16 10/13/16 10/13/16 18:09 Unknown Unknown WBC 23.4 H RBC 2.83 L Hgb 8.7 L Hct 26.1 L MCV MCH MCHC RDW 18.1 H Plt Count Lymph % (Auto) [place] % (Auto) Lymph # [place] # Baso # Seg Neutrophils % Seg Neuts % (Manual) Lymphocytes % (Manual) Monocytes % (Manual) Eosinophils % (Manual) Basophils % (Manual) Nucleated RBC % Seg Neutrophils # Seg Neutrophils # Man Lymphocytes # (Manual) Monocytes # (Manual) Eosinophils # (Manual) PT INR Fibrinogen dRVVT Confirm Interp Factor V Activity POC ABG pH POC ABG pCO2 POC ABG pO2 Sodium Potassium Chloride 95.8 L Carbon Dioxide BUN 82 H Creatinine 2.6 H Glucose 152 H POC Glucose 166 H Lactic Acid Calcium Phosphorus Magnesium Direct Bilirubin AST ALT Alkaline Phosphatase Lactate Dehydrogenase Troponin T C-Reactive Protein Total Protein Albumin Prealbumin Triglycerides Cholesterol LDL Cholesterol Direct HDL Cholesterol Urine pH Urine WBC (Auto) Urine Creatinine Urine Total Protein Vancomycin Trough Rheumatoid Factor Complement C4 Miscellaneous Test Crossmatch 10/14/16 10/14/16 10/14/16 05:38 06:35 08:10 WBC 20.7 H RBC 2.81 L Hgb 8.4 L Hct 27.2 L MCV MCH MCHC RDW 19.4 H Plt Count Lymph % (Auto) [place] % (Auto) Lymph # [place] # Baso # Seg Neutrophils % Seg Neuts % (Manual) Lymphocytes % (Manual) Monocytes % (Manual) Eosinophils % (Manual) Basophils % (Manual) Nucleated RBC % Seg Neutrophils # Seg Neutrophils # Man Lymphocytes # (Manual) Monocytes # (Manual) Eosinophils # (Manual) PT INR Fibrinogen dRVVT Confirm Interp Factor V Activity POC ABG pH POC ABG pCO2 POC ABG pO2 Sodium Potassium Chloride Carbon Dioxide BUN 58 H Creatinine 1.9 H Glucose 169 H POC Glucose 195 H Lactic Acid Calcium Phosphorus Magnesium Direct Bilirubin AST ALT Alkaline Phosphatase Lactate Dehydrogenase Troponin T C-Reactive Protein Total Protein Albumin Prealbumin Triglycerides Cholesterol LDL Cholesterol Direct HDL Cholesterol Urine pH Urine WBC (Auto) Urine Creatinine Urine Total Protein Vancomycin Trough Rheumatoid Factor Complement C4 Miscellaneous Test Crossmatch 10/14/16 10/14/16 10/14/16 11:44 17:13 23:28 WBC RBC Hgb Hct MCV MCH MCHC RDW Plt Count Lymph % (Auto) [place] % (Auto) Lymph # [place] # Baso # Seg Neutrophils % Seg Neuts % (Manual) Lymphocytes % (Manual) Monocytes % (Manual) Eosinophils % (Manual) Basophils % (Manual) Nucleated RBC % Seg Neutrophils # Seg Neutrophils # Man Lymphocytes # (Manual) Monocytes # (Manual) Eosinophils # (Manual) PT INR Fibrinogen dRVVT Confirm Interp Factor V Activity POC ABG pH POC ABG pCO2 POC ABG pO2 Sodium Potassium Chloride Carbon Dioxide BUN Creatinine Glucose POC Glucose 174 H 121 H 151 H Lactic Acid Calcium Phosphorus Magnesium Direct Bilirubin AST ALT Alkaline Phosphatase Lactate Dehydrogenase Troponin T C-Reactive Protein Total Protein Albumin Prealbumin Triglycerides Cholesterol LDL Cholesterol Direct HDL Cholesterol Urine pH Urine WBC (Auto) Urine Creatinine Urine Total Protein Vancomycin Trough Rheumatoid Factor Complement C4 Miscellaneous Test Crossmatch 10/15/16 10/15/16 10/15/16 05:06 12:26 17:48 WBC RBC Hgb Hct MCV MCH MCHC RDW Plt Count Lymph % (Auto) [place] % (Auto) Lymph # [place] # Baso # Seg Neutrophils % Seg Neuts % (Manual) Lymphocytes % (Manual) Monocytes % (Manual) Eosinophils % (Manual) Basophils % (Manual) Nucleated RBC % Seg Neutrophils # Seg Neutrophils # Man Lymphocytes # (Manual) Monocytes # (Manual) Eosinophils # (Manual) PT INR Fibrinogen dRVVT Confirm Interp Factor V Activity POC ABG pH POC ABG pCO2 POC ABG pO2 Sodium Potassium Chloride Carbon Dioxide BUN Creatinine Glucose POC Glucose 151 H 149 H 153 H Lactic Acid Calcium Phosphorus Magnesium Direct Bilirubin AST ALT Alkaline Phosphatase Lactate Dehydrogenase Troponin T C-Reactive Protein Total Protein Albumin Prealbumin Triglycerides Cholesterol LDL Cholesterol Direct HDL Cholesterol Urine pH Urine WBC (Auto) Urine Creatinine Urine Total Protein Vancomycin Trough Rheumatoid Factor Complement C4 Miscellaneous Test Crossmatch 10/15/16 10/15/16 10/16/16 Unknown Unknown 00:02 WBC 23.4 H RBC 2.78 L Hgb 8.5 L Hct 25.7 L MCV MCH MCHC RDW 18.7 H Plt Count Lymph % (Auto) [place] % (Auto) Lymph # [place] # Baso # Seg Neutrophils % Seg Neuts % (Manual) Lymphocytes % (Manual) Monocytes % (Manual) Eosinophils % (Manual) Basophils % (Manual) Nucleated RBC % Seg Neutrophils # Seg Neutrophils # Man Lymphocytes # (Manual) Monocytes # (Manual) Eosinophils # (Manual) PT INR Fibrinogen dRVVT Confirm Interp Factor V Activity POC ABG pH POC ABG pCO2 POC ABG pO2 Sodium Potassium Chloride Carbon Dioxide BUN 73 H Creatinine 2.3 H Glucose 120 H POC Glucose 137 H Lactic Acid Calcium Phosphorus Magnesium Direct Bilirubin AST ALT Alkaline Phosphatase Lactate Dehydrogenase Troponin T C-Reactive Protein Total Protein Albumin Prealbumin Triglycerides Cholesterol LDL Cholesterol Direct HDL Cholesterol Urine pH Urine WBC (Auto) Urine Creatinine Urine Total Protein Vancomycin Trough Rheumatoid Factor Complement C4 Miscellaneous Test Crossmatch 10/16/16 10/16/16 10/16/16 05:44 06:25 06:25 WBC 22.5 H RBC 2.76 L Hgb 8.3 L Hct 25.2 L MCV MCH MCHC RDW 18.3 H Plt Count Lymph % (Auto) [place] % (Auto) Lymph # [place] # Baso # Seg Neutrophils % Seg Neuts % (Manual) Lymphocytes % (Manual) Monocytes % (Manual) Eosinophils % (Manual) Basophils % (Manual) Nucleated RBC % Seg Neutrophils # Seg Neutrophils # Man Lymphocytes # (Manual) Monocytes # (Manual) Eosinophils # (Manual) PT INR Fibrinogen dRVVT Confirm Interp Factor V Activity POC ABG pH POC ABG pCO2 POC ABG pO2 Sodium Potassium Chloride Carbon Dioxide BUN 92 H Creatinine 3.0 H Glucose 138 H POC Glucose 110 H Lactic Acid Calcium Phosphorus Magnesium Direct Bilirubin AST ALT Alkaline Phosphatase Lactate Dehydrogenase Troponin T C-Reactive Protein Total Protein Albumin Prealbumin Triglycerides Cholesterol LDL Cholesterol Direct HDL Cholesterol Urine pH Urine WBC (Auto) Urine Creatinine Urine Total Protein Vancomycin Trough Rheumatoid Factor Complement C4 Miscellaneous Test Crossmatch 10/16/16 10/16/16 10/16/16 11:27 11:48 17:36 WBC RBC Hgb Hct MCV MCH MCHC RDW Plt Count Lymph % (Auto) [place] % (Auto) Lymph # [place] # Baso # Seg Neutrophils % Seg Neuts % (Manual) Lymphocytes % (Manual) Monocytes % (Manual) Eosinophils % (Manual) Basophils % (Manual) Nucleated RBC % Seg Neutrophils # Seg Neutrophils # Man Lymphocytes # (Manual) Monocytes # (Manual) Eosinophils # (Manual) PT INR Fibrinogen dRVVT Confirm Interp Factor V Activity POC ABG pH 7.582 H POC ABG pCO2 27.4 L POC ABG pO2 110 H Sodium Potassium Chloride Carbon Dioxide BUN Creatinine Glucose POC Glucose 121 H 133 H Lactic Acid Calcium Phosphorus Magnesium Direct Bilirubin AST ALT Alkaline Phosphatase Lactate Dehydrogenase Troponin T C-Reactive Protein Total Protein Albumin Prealbumin Triglycerides Cholesterol LDL Cholesterol Direct HDL Cholesterol Urine pH Urine WBC (Auto) Urine Creatinine Urine Total Protein Vancomycin Trough Rheumatoid Factor Complement C4 Miscellaneous Test Crossmatch 10/16/16 10/17/16 10/17/16 20:48 04:24 04:24 WBC 21.4 H RBC 2.72 L Hgb 8.0 L Hct 25.2 L MCV MCH MCHC RDW 18.0 H Plt Count Lymph % (Auto) [place] % (Auto) Lymph # [place] # Baso # Seg Neutrophils % Seg Neuts % (Manual) Lymphocytes % (Manual) Monocytes % (Manual) Eosinophils % (Manual) Basophils % (Manual) Nucleated RBC % Seg Neutrophils # Seg Neutrophils # Man Lymphocytes # (Manual) Monocytes # (Manual) Eosinophils # (Manual) PT INR Fibrinogen dRVVT Confirm Interp Factor V Activity POC ABG pH 7.561 H POC ABG pCO2 24.4 L POC ABG pO2 77 L Sodium 148 H Potassium Chloride Carbon Dioxide BUN 104 H Creatinine 3.0 H Glucose 149 H POC Glucose Lactic Acid Calcium Phosphorus Magnesium Direct Bilirubin AST ALT Alkaline Phosphatase 138 H Lactate Dehydrogenase Troponin T C-Reactive Protein Total Protein 6.2 L Albumin 1.5 L Prealbumin Triglycerides Cholesterol LDL Cholesterol Direct HDL Cholesterol Urine pH Urine WBC (Auto) Urine Creatinine Urine Total Protein Vancomycin Trough Rheumatoid Factor Complement C4 Miscellaneous Test Crossmatch 10/17/16 10/17/16 10/17/16 06:02 12:17 17:14 WBC RBC Hgb Hct MCV MCH MCHC RDW Plt Count Lymph % (Auto) [place] % (Auto) Lymph # [place] # Baso # Seg Neutrophils % Seg Neuts % (Manual) Lymphocytes % (Manual) Monocytes % (Manual) Eosinophils % (Manual) Basophils % (Manual) Nucleated RBC % Seg Neutrophils # Seg Neutrophils # Man Lymphocytes # (Manual) Monocytes # (Manual) Eosinophils # (Manual) PT INR Fibrinogen dRVVT Confirm Interp Factor V Activity POC ABG pH POC ABG pCO2 POC ABG pO2 Sodium Potassium Chloride Carbon Dioxide BUN Creatinine Glucose POC Glucose 170 H 167 H 126 H Lactic Acid Calcium Phosphorus Magnesium Direct Bilirubin AST ALT Alkaline Phosphatase Lactate Dehydrogenase Troponin T C-Reactive Protein Total Protein Albumin Prealbumin Triglycerides Cholesterol LDL Cholesterol Direct HDL Cholesterol Urine pH Urine WBC (Auto) Urine Creatinine Urine Total Protein Vancomycin Trough Rheumatoid Factor Complement C4 Miscellaneous Test Crossmatch 10/17/16 10/18/16 10/18/16 23:17 04:00 04:00 WBC 20.7 H RBC 2.47 L Hgb 7.4 L Hct 22.9 L MCV MCH MCHC RDW 17.5 H Plt Count Lymph % (Auto) [place] % (Auto) Lymph # [place] # Baso # Seg Neutrophils % Seg Neuts % (Manual) Lymphocytes % (Manual) Monocytes % (Manual) Eosinophils % (Manual) Basophils % (Manual) Nucleated RBC % Seg Neutrophils # Seg Neutrophils # Man Lymphocytes # (Manual) Monocytes # (Manual) Eosinophils # (Manual) PT INR Fibrinogen dRVVT Confirm Interp Factor V Activity POC ABG pH POC ABG pCO2 POC ABG pO2 Sodium 149 H Potassium Chloride 107.9 H Carbon Dioxide 20 L BUN 117 H Creatinine 3.2 H Glucose 119 H POC Glucose 121 H Lactic Acid Calcium Phosphorus Magnesium Direct Bilirubin AST ALT Alkaline Phosphatase Lactate Dehydrogenase Troponin T C-Reactive Protein Total Protein Albumin Prealbumin Triglycerides Cholesterol LDL Cholesterol Direct HDL Cholesterol Urine pH Urine WBC (Auto) Urine Creatinine Urine Total Protein Vancomycin Trough Rheumatoid Factor Complement C4 Miscellaneous Test Crossmatch 10/18/16 10/18/16 10/18/16 05:23 10:46 17:30 WBC RBC Hgb Hct MCV MCH MCHC RDW Plt Count Lymph % (Auto) [place] % (Auto) Lymph # [place] # Baso # Seg Neutrophils % Seg Neuts % (Manual) Lymphocytes % (Manual) Monocytes % (Manual) Eosinophils % (Manual) Basophils % (Manual) Nucleated RBC % Seg Neutrophils # Seg Neutrophils # Man Lymphocytes # (Manual) Monocytes # (Manual) Eosinophils # (Manual) PT INR Fibrinogen dRVVT Confirm Interp Factor V Activity POC ABG pH POC ABG pCO2 POC ABG pO2 Sodium Potassium Chloride Carbon Dioxide BUN Creatinine Glucose POC Glucose 119 H 155 H 124 H Lactic Acid Calcium Phosphorus Magnesium Direct Bilirubin AST ALT Alkaline Phosphatase Lactate Dehydrogenase Troponin T C-Reactive Protein Total Protein Albumin Prealbumin Triglycerides Cholesterol LDL Cholesterol Direct HDL Cholesterol Urine pH Urine WBC (Auto) Urine Creatinine Urine Total Protein Vancomycin Trough Rheumatoid Factor Complement C4 Miscellaneous Test Crossmatch 10/19/16 10/19/16 10/19/16 04:00 04:00 05:25 WBC 17.4 H RBC 2.54 L Hgb 7.7 L Hct 23.6 L MCV MCH MCHC RDW 17.3 H Plt Count Lymph % (Auto) [place] % (Auto) Lymph # [place] # Baso # Seg Neutrophils % Seg Neuts % (Manual) Lymphocytes % (Manual) Monocytes % (Manual) Eosinophils % (Manual) Basophils % (Manual) Nucleated RBC % Seg Neutrophils # Seg Neutrophils # Man Lymphocytes # (Manual) Monocytes # (Manual) Eosinophils # (Manual) PT INR Fibrinogen dRVVT Confirm Interp Factor V Activity POC ABG pH POC ABG pCO2 POC ABG pO2 Sodium Potassium Chloride Carbon Dioxide BUN 72 H Creatinine 2.1 H Glucose 116 H POC Glucose 119 H Lactic Acid Calcium Phosphorus Magnesium Direct Bilirubin AST ALT Alkaline Phosphatase Lactate Dehydrogenase Troponin T C-Reactive Protein Total Protein Albumin Prealbumin Triglycerides Cholesterol LDL Cholesterol Direct HDL Cholesterol Urine pH Urine WBC (Auto) Urine Creatinine Urine Total Protein Vancomycin Trough Rheumatoid Factor Complement C4 Miscellaneous Test Crossmatch 10/19/16 10/19/16 10/20/16 11:46 23:59 06:00 WBC RBC Hgb Hct MCV MCH MCHC RDW Plt Count Lymph % (Auto) [place] % (Auto) Lymph # [place] # Baso # Seg Neutrophils % Seg Neuts % (Manual) Lymphocytes % (Manual) Monocytes % (Manual) Eosinophils % (Manual) Basophils % (Manual) Nucleated RBC % Seg Neutrophils # Seg Neutrophils # Man Lymphocytes # (Manual) Monocytes # (Manual) Eosinophils # (Manual) PT INR Fibrinogen dRVVT Confirm Interp Factor V Activity POC ABG pH POC ABG pCO2 POC ABG pO2 Sodium Potassium Chloride Carbon Dioxide 17 L BUN 94 H Creatinine 2.7 H Glucose POC Glucose 116 H 117 H Lactic Acid Calcium Phosphorus Magnesium Direct Bilirubin AST ALT Alkaline Phosphatase Lactate Dehydrogenase Troponin T C-Reactive Protein Total Protein Albumin Prealbumin Triglycerides Cholesterol LDL Cholesterol Direct HDL Cholesterol Urine pH Urine WBC (Auto) Urine Creatinine Urine Total Protein Vancomycin Trough Rheumatoid Factor Complement C4 Miscellaneous Test Crossmatch 10/20/16 10/20/16 10/20/16 06:00 11:49 16:00 WBC 19.7 H RBC 2.51 L Hgb 7.7 L Hct 23.5 L MCV MCH MCHC RDW 17.5 H Plt Count Lymph % (Auto) [place] % (Auto) Lymph # [place] # Baso # Seg Neutrophils % Seg Neuts % (Manual) Lymphocytes % (Manual) Monocytes % (Manual) Eosinophils % (Manual) Basophils % (Manual) Nucleated RBC % Seg Neutrophils # Seg Neutrophils # Man Lymphocytes # (Manual) Monocytes # (Manual) Eosinophils # (Manual) PT INR Fibrinogen dRVVT Confirm Interp Factor V Activity POC ABG pH POC ABG pCO2 POC ABG pO2 Sodium Potassium Chloride Carbon Dioxide BUN Creatinine Glucose POC Glucose 117 H Lactic Acid Calcium Phosphorus Magnesium Direct Bilirubin AST ALT Alkaline Phosphatase Lactate Dehydrogenase Troponin T C-Reactive Protein Total Protein Albumin Prealbumin Triglycerides Cholesterol LDL Cholesterol Direct HDL Cholesterol Urine pH Urine WBC (Auto) Urine Creatinine Urine Total Protein Vancomycin Trough Rheumatoid Factor Complement C4 Miscellaneous Test Flexitest 1 H Crossmatch 10/20/16 10/20/16 10/21/16 18:36 23:39 04:00 WBC RBC Hgb Hct MCV MCH MCHC RDW Plt Count Lymph % (Auto) [place] % (Auto) Lymph # [place] # Baso # Seg Neutrophils % Seg Neuts % (Manual) Lymphocytes % (Manual) Monocytes % (Manual) Eosinophils % (Manual) Basophils % (Manual) Nucleated RBC % Seg Neutrophils # Seg Neutrophils # Man Lymphocytes # (Manual) Monocytes # (Manual) Eosinophils # (Manual) PT INR Fibrinogen dRVVT Confirm Interp Factor V Activity POC ABG pH POC ABG pCO2 POC ABG pO2 Sodium Potassium 5.4 H D Chloride Carbon Dioxide 15 L BUN 110 H Creatinine 3.0 H Glucose POC Glucose 127 H 114 H Lactic Acid Calcium Phosphorus Magnesium Direct Bilirubin AST ALT Alkaline Phosphatase Lactate Dehydrogenase Troponin T C-Reactive Protein Total Protein Albumin Prealbumin Triglycerides Cholesterol LDL Cholesterol Direct HDL Cholesterol Urine pH Urine WBC (Auto) Urine Creatinine Urine Total Protein Vancomycin Trough Rheumatoid Factor Complement C4 Miscellaneous Test Crossmatch 10/21/16 10/21/16 10/22/16 05:54 23:46 05:18 WBC RBC Hgb Hct MCV MCH MCHC RDW Plt Count Lymph % (Auto) [place] % (Auto) Lymph # [place] # Baso # Seg Neutrophils % Seg Neuts % (Manual) Lymphocytes % (Manual) Monocytes % (Manual) Eosinophils % (Manual) Basophils % (Manual) Nucleated RBC % Seg Neutrophils # Seg Neutrophils # Man Lymphocytes # (Manual) Monocytes # (Manual) Eosinophils # (Manual) PT INR Fibrinogen dRVVT Confirm Interp Factor V Activity POC ABG pH POC ABG pCO2 POC ABG pO2 Sodium Potassium Chloride Carbon Dioxide BUN Creatinine Glucose POC Glucose 119 H 108 H 109 H Lactic Acid Calcium Phosphorus Magnesium Direct Bilirubin AST ALT Alkaline Phosphatase Lactate Dehydrogenase Troponin T C-Reactive Protein Total Protein Albumin Prealbumin Triglycerides Cholesterol LDL Cholesterol Direct HDL Cholesterol Urine pH Urine WBC (Auto) Urine Creatinine Urine Total Protein Vancomycin Trough Rheumatoid Factor Complement C4 Miscellaneous Test Crossmatch 10/22/16 10/22/16 10/22/16 06:40 06:40 06:40 WBC 14.0 H RBC 2.03 L Hgb 7.0 L Hct 20.5 L MCV 98 H MCH 34 H MCHC 35 H RDW 17.8 H Plt Count Lymph % (Auto) [place] % (Auto) 9.9 H Lymph # [place] # 1.4 H Baso # 0.2 H Seg Neutrophils % 72.0 H Seg Neuts % (Manual) Lymphocytes % (Manual) Monocytes % (Manual) Eosinophils % (Manual) Basophils % (Manual) Nucleated RBC % Seg Neutrophils # 10.0 H Seg Neutrophils # Man Lymphocytes # (Manual) Monocytes # (Manual) Eosinophils # (Manual) PT INR Fibrinogen dRVVT Confirm Interp Factor V Activity POC ABG pH POC ABG pCO2 POC ABG pO2 Sodium 130 L D Potassium Chloride 92.4 L Carbon Dioxide 20 L BUN 50 H Creatinine 1.6 H Glucose 589 H* POC Glucose Lactic Acid Calcium 7.8 L D Phosphorus Magnesium 1.60 L Direct Bilirubin AST ALT Alkaline Phosphatase Lactate Dehydrogenase Troponin T C-Reactive Protein Total Protein Albumin Prealbumin Triglycerides Cholesterol LDL Cholesterol Direct HDL Cholesterol Urine pH Urine WBC (Auto) Urine Creatinine Urine Total Protein Vancomycin Trough Rheumatoid Factor Complement C4 Miscellaneous Test Crossmatch 10/22/16 10/22/16 10/22/16 11:39 16:44 23:36 WBC RBC Hgb Hct MCV MCH MCHC RDW Plt Count Lymph % (Auto) [place] % (Auto) Lymph # [place] # Baso # Seg Neutrophils % Seg Neuts % (Manual) Lymphocytes % (Manual) Monocytes % (Manual) Eosinophils % (Manual) Basophils % (Manual) Nucleated RBC % Seg Neutrophils # Seg Neutrophils # Man Lymphocytes # (Manual) Monocytes # (Manual) Eosinophils # (Manual) PT INR Fibrinogen dRVVT Confirm Interp Factor V Activity POC ABG pH POC ABG pCO2 POC ABG pO2 Sodium Potassium Chloride Carbon Dioxide BUN Creatinine Glucose POC Glucose 142 H 163 H 123 H Lactic Acid Calcium Phosphorus Magnesium Direct Bilirubin AST ALT Alkaline Phosphatase Lactate Dehydrogenase Troponin T C-Reactive Protein Total Protein Albumin Prealbumin Triglycerides Cholesterol LDL Cholesterol Direct HDL Cholesterol Urine pH Urine WBC (Auto) Urine Creatinine Urine Total Protein Vancomycin Trough Rheumatoid Factor Complement C4 Miscellaneous Test Crossmatch 10/23/16 10/23/16 10/23/16 04:58 06:00 12:12 WBC RBC Hgb Hct MCV MCH MCHC RDW Plt Count Lymph % (Auto) [place] % (Auto) Lymph # [place] # Baso # Seg Neutrophils % Seg Neuts % (Manual) Lymphocytes % (Manual) Monocytes % (Manual) Eosinophils % (Manual) Basophils % (Manual) Nucleated RBC % Seg Neutrophils # Seg Neutrophils # Man Lymphocytes # (Manual) Monocytes # (Manual) Eosinophils # (Manual) PT INR Fibrinogen dRVVT Confirm Interp Factor V Activity POC ABG pH POC ABG pCO2 POC ABG pO2 Sodium 133 L Potassium 3.5 L Chloride 96.1 L Carbon Dioxide 18 L BUN 76 H Creatinine 2.1 H Glucose POC Glucose 133 H 138 H Lactic Acid Calcium 8.3 L Phosphorus Magnesium Direct Bilirubin AST ALT Alkaline Phosphatase Lactate Dehydrogenase Troponin T C-Reactive Protein Total Protein Albumin Prealbumin Triglycerides Cholesterol LDL Cholesterol Direct HDL Cholesterol Urine pH Urine WBC (Auto) Urine Creatinine Urine Total Protein Vancomycin Trough Rheumatoid Factor Complement C4 Miscellaneous Test Crossmatch 10/23/16 10/23/16 10/24/16 16:53 23:37 04:00 WBC RBC Hgb Hct MCV MCH MCHC RDW Plt Count Lymph % (Auto) [place] % (Auto) Lymph # [place] # Baso # Seg Neutrophils % Seg Neuts % (Manual) Lymphocytes % (Manual) Monocytes % (Manual) Eosinophils % (Manual) Basophils % (Manual) Nucleated RBC % Seg Neutrophils # Seg Neutrophils # Man Lymphocytes # (Manual) Monocytes # (Manual) Eosinophils # (Manual) PT INR Fibrinogen dRVVT Confirm Interp Factor V Activity POC ABG pH POC ABG pCO2 POC ABG pO2 Sodium 131 L Potassium Chloride 94.5 L Carbon Dioxide 19 L BUN 97 H Creatinine 2.6 H Glucose 110 H POC Glucose 125 H 123 H Lactic Acid Calcium 8.3 L Phosphorus Magnesium Direct Bilirubin AST ALT Alkaline Phosphatase Lactate Dehydrogenase Troponin T C-Reactive Protein Total Protein Albumin Prealbumin Triglycerides Cholesterol LDL Cholesterol Direct HDL Cholesterol Urine pH Urine WBC (Auto) Urine Creatinine Urine Total Protein Vancomycin Trough Rheumatoid Factor Complement C4 Miscellaneous Test Crossmatch 10/24/16 10/24/16 10/24/16 07:49 11:39 17:52 WBC RBC Hgb 6.0 L Hct 19.7 L* MCV MCH MCHC RDW Plt Count Lymph % (Auto) [place] % (Auto) Lymph # [place] # Baso # Seg Neutrophils % Seg Neuts % (Manual) Lymphocytes % (Manual) Monocytes % (Manual) Eosinophils % (Manual) Basophils % (Manual) Nucleated RBC % Seg Neutrophils # Seg Neutrophils # Man Lymphocytes # (Manual) Monocytes # (Manual) Eosinophils # (Manual) PT INR Fibrinogen dRVVT Confirm Interp Factor V Activity POC ABG pH POC ABG pCO2 POC ABG pO2 Sodium Potassium Chloride Carbon Dioxide BUN Creatinine Glucose POC Glucose 106 H 158 H Lactic Acid Calcium Phosphorus Magnesium Direct Bilirubin AST ALT Alkaline Phosphatase Lactate Dehydrogenase Troponin T C-Reactive Protein Total Protein Albumin Prealbumin Triglycerides Cholesterol LDL Cholesterol Direct HDL Cholesterol Urine pH Urine WBC (Auto) Urine Creatinine Urine Total Protein Vancomycin Trough Rheumatoid Factor Complement C4 Miscellaneous Test Crossmatch 10/24/16 10/24/16 10/24/16 20:00 22:27 Unknown WBC RBC Hgb 9.4 L D Hct 27.5 L D MCV MCH MCHC RDW Plt Count Lymph % (Auto) [place] % (Auto) Lymph # [place] # Baso # Seg Neutrophils % Seg Neuts % (Manual) Lymphocytes % (Manual) Monocytes % (Manual) Eosinophils % (Manual) Basophils % (Manual) Nucleated RBC % Seg Neutrophils # Seg Neutrophils # Man Lymphocytes # (Manual) Monocytes # (Manual) Eosinophils # (Manual) PT INR Fibrinogen dRVVT Confirm Interp Factor V Activity POC ABG pH POC ABG pCO2 POC ABG pO2 Sodium Potassium Chloride Carbon Dioxide BUN Creatinine Glucose POC Glucose 125 H Lactic Acid Calcium Phosphorus Magnesium Direct Bilirubin AST ALT Alkaline Phosphatase Lactate Dehydrogenase Troponin T C-Reactive Protein Total Protein Albumin Prealbumin Triglycerides Cholesterol LDL Cholesterol Direct HDL Cholesterol Urine pH Urine WBC (Auto) Urine Creatinine Urine Total Protein Vancomycin Trough Rheumatoid Factor Complement C4 Miscellaneous Test Crossmatch See Detail 10/25/16 10/25/16 10/25/16 04:00 04:00 04:00 WBC 14.2 H RBC 2.98 L Hgb 9.0 L Hct 26.2 L MCV MCH MCHC RDW 16.6 H Plt Count Lymph % (Auto) [place] % (Auto) 10.7 H Lymph # [place] # 1.5 H Baso # Seg Neutrophils % 73.6 H Seg Neuts % (Manual) Lymphocytes % (Manual) Monocytes % (Manual) Eosinophils % (Manual) Basophils % (Manual) Nucleated RBC % Seg Neutrophils # 10.5 H Seg Neutrophils # Man Lymphocytes # (Manual) Monocytes # (Manual) Eosinophils # (Manual) PT INR Fibrinogen dRVVT Confirm Interp Factor V Activity POC ABG pH POC ABG pCO2 POC ABG pO2 Sodium 132 L Potassium Chloride 94.7 L Carbon Dioxide BUN 51 H Creatinine 1.6 H Glucose 130 H POC Glucose Lactic Acid Calcium 8.3 L Phosphorus 1.60 L D Magnesium Direct Bilirubin AST ALT Alkaline Phosphatase Lactate Dehydrogenase Troponin T C-Reactive Protein Total Protein Albumin Prealbumin Triglycerides Cholesterol LDL Cholesterol Direct HDL Cholesterol Urine pH Urine WBC (Auto) Urine Creatinine Urine Total Protein Vancomycin Trough Rheumatoid Factor Complement C4 Miscellaneous Test Crossmatch 10/25/16 10/25/16 10/25/16 04:32 11:48 17:22 WBC RBC Hgb Hct MCV MCH MCHC RDW Plt Count Lymph % (Auto) [place] % (Auto) Lymph # [place] # Baso # Seg Neutrophils % Seg Neuts % (Manual) Lymphocytes % (Manual) Monocytes % (Manual) Eosinophils % (Manual) Basophils % (Manual) Nucleated RBC % Seg Neutrophils # Seg Neutrophils # Man Lymphocytes # (Manual) Monocytes # (Manual) Eosinophils # (Manual) PT INR Fibrinogen dRVVT Confirm Interp Factor V Activity POC ABG pH POC ABG pCO2 POC ABG pO2 Sodium Potassium Chloride Carbon Dioxide BUN Creatinine Glucose POC Glucose 124 H 171 H 120 H Lactic Acid Calcium Phosphorus Magnesium Direct Bilirubin AST ALT Alkaline Phosphatase Lactate Dehydrogenase Troponin T C-Reactive Protein Total Protein Albumin Prealbumin Triglycerides Cholesterol LDL Cholesterol Direct HDL Cholesterol Urine pH Urine WBC (Auto) Urine Creatinine Urine Total Protein Vancomycin Trough Rheumatoid Factor Complement C4 Miscellaneous Test Crossmatch 10/26/16 10/26/16 10/26/16 04:54 07:06 07:06 WBC 16.9 H RBC 3.06 L Hgb 9.1 L Hct 26.9 L MCV MCH MCHC RDW 16.9 H Plt Count Lymph % (Auto) [place] % (Auto) Lymph # [place] # Baso # Seg Neutrophils % Seg Neuts % (Manual) 71.0 H Lymphocytes % (Manual) 5.0 L Monocytes % (Manual) 12.0 H Eosinophils % (Manual) Basophils % (Manual) Nucleated RBC % Seg Neutrophils # Seg Neutrophils # Man 12.0 H Lymphocytes # (Manual) 0.8 L Monocytes # (Manual) 2.0 H Eosinophils # (Manual) PT INR Fibrinogen dRVVT Confirm Interp Factor V Activity POC ABG pH POC ABG pCO2 POC ABG pO2 Sodium 135 L Potassium Chloride 97.1 L Carbon Dioxide BUN 73 H Creatinine 2.2 H Glucose 117 H POC Glucose 123 H Lactic Acid Calcium Phosphorus 1.70 L Magnesium Direct Bilirubin AST ALT Alkaline Phosphatase Lactate Dehydrogenase Troponin T C-Reactive Protein Total Protein Albumin Prealbumin Triglycerides Cholesterol LDL Cholesterol Direct HDL Cholesterol Urine pH Urine WBC (Auto) Urine Creatinine Urine Total Protein Vancomycin Trough Rheumatoid Factor Complement C4 Miscellaneous Test Crossmatch 10/26/16 10/26/16 10/26/16 12:12 17:29 23:42 WBC RBC Hgb Hct MCV MCH MCHC RDW Plt Count Lymph % (Auto) [place] % (Auto) Lymph # [place] # Baso # Seg Neutrophils % Seg Neuts % (Manual) Lymphocytes % (Manual) Monocytes % (Manual) Eosinophils % (Manual) Basophils % (Manual) Nucleated RBC % Seg Neutrophils # Seg Neutrophils # Man Lymphocytes # (Manual) Monocytes # (Manual) Eosinophils # (Manual) PT INR Fibrinogen dRVVT Confirm Interp Factor V Activity POC ABG pH POC ABG pCO2 POC ABG pO2 Sodium Potassium Chloride Carbon Dioxide BUN Creatinine Glucose POC Glucose 126 H 161 H 118 H Lactic Acid Calcium Phosphorus Magnesium Direct Bilirubin AST ALT Alkaline Phosphatase Lactate Dehydrogenase Troponin T C-Reactive Protein Total Protein Albumin Prealbumin Triglycerides Cholesterol LDL Cholesterol Direct HDL Cholesterol Urine pH Urine WBC (Auto) Urine Creatinine Urine Total Protein Vancomycin Trough Rheumatoid Factor Complement C4 Miscellaneous Test Crossmatch 10/27/16 10/27/16 10/27/16 05:03 06:30 06:30 WBC 13.9 H RBC 3.09 L Hgb 9.2 L Hct 27.5 L MCV MCH MCHC RDW 17.0 H Plt Count Lymph % (Auto) [place] % (Auto) Lymph # [place] # Baso # Seg Neutrophils % Seg Neuts % (Manual) 78.0 H Lymphocytes % (Manual) Monocytes % (Manual) Eosinophils % (Manual) Basophils % (Manual) Nucleated RBC % 2.0 H Seg Neutrophils # Seg Neutrophils # Man 10.8 H Lymphocytes # (Manual) Monocytes # (Manual) 1.0 H Eosinophils # (Manual) PT INR Fibrinogen dRVVT Confirm Interp Factor V Activity POC ABG pH POC ABG pCO2 POC ABG pO2 Sodium Potassium Chloride Carbon Dioxide BUN 40 H Creatinine 1.5 H Glucose 135 H POC Glucose 107 H Lactic Acid Calcium 8.3 L Phosphorus 1.30 L D Magnesium Direct Bilirubin AST ALT Alkaline Phosphatase Lactate Dehydrogenase Troponin T C-Reactive Protein Total Protein Albumin Prealbumin Triglycerides Cholesterol LDL Cholesterol Direct HDL Cholesterol Urine pH Urine WBC (Auto) Urine Creatinine Urine Total Protein Vancomycin Trough Rheumatoid Factor Complement C4 Miscellaneous Test Crossmatch 10/27/16 10/27/16 10/27/16 13:27 18:07 23:40 WBC RBC Hgb Hct MCV MCH MCHC RDW Plt Count Lymph % (Auto) [place] % (Auto) Lymph # [place] # Baso # Seg Neutrophils % Seg Neuts % (Manual) Lymphocytes % (Manual) Monocytes % (Manual) Eosinophils % (Manual) Basophils % (Manual) Nucleated RBC % Seg Neutrophils # Seg Neutrophils # Man Lymphocytes # (Manual) Monocytes # (Manual) Eosinophils # (Manual) PT INR Fibrinogen dRVVT Confirm Interp Factor V Activity POC ABG pH POC ABG pCO2 POC ABG pO2 Sodium Potassium Chloride Carbon Dioxide BUN Creatinine Glucose POC Glucose 117 H 121 H 118 H Lactic Acid Calcium Phosphorus Magnesium Direct Bilirubin AST ALT Alkaline Phosphatase Lactate Dehydrogenase Troponin T C-Reactive Protein Total Protein Albumin Prealbumin Triglycerides Cholesterol LDL Cholesterol Direct HDL Cholesterol Urine pH Urine WBC (Auto) Urine Creatinine Urine Total Protein Vancomycin Trough Rheumatoid Factor Complement C4 Miscellaneous Test Crossmatch 10/28/16 10/28/16 10/28/16 05:48 06:45 06:45 WBC 14.7 H RBC 3.05 L Hgb 9.0 L Hct 26.9 L MCV MCH MCHC RDW 16.8 H Plt Count Lymph % (Auto) 8.2 L [place] % (Auto) 8.4 H Lymph # [place] # 1.2 H Baso # Seg Neutrophils % 81.9 H Seg Neuts % (Manual) Lymphocytes % (Manual) Monocytes % (Manual) Eosinophils % (Manual) Basophils % (Manual) Nucleated RBC % Seg Neutrophils # 12.1 H Seg Neutrophils # Man Lymphocytes # (Manual) Monocytes # (Manual) Eosinophils # (Manual) PT INR Fibrinogen dRVVT Confirm Interp Factor V Activity POC ABG pH POC ABG pCO2 POC ABG pO2 Sodium Potassium Chloride Carbon Dioxide BUN 60 H Creatinine 1.9 H Glucose 120 H POC Glucose 114 H Lactic Acid Calcium Phosphorus Magnesium Direct Bilirubin AST ALT Alkaline Phosphatase Lactate Dehydrogenase Troponin T C-Reactive Protein Total Protein Albumin Prealbumin Triglycerides Cholesterol LDL Cholesterol Direct HDL Cholesterol Urine pH Urine WBC (Auto) Urine Creatinine Urine Total Protein Vancomycin Trough Rheumatoid Factor Complement C4 Miscellaneous Test Crossmatch 10/28/16 10/28/16 10/29/16 17:08 23:50 05:10 WBC RBC Hgb Hct MCV MCH MCHC RDW Plt Count Lymph % (Auto) [place] % (Auto) Lymph # [place] # Baso # Seg Neutrophils % Seg Neuts % (Manual) Lymphocytes % (Manual) Monocytes % (Manual) Eosinophils % (Manual) Basophils % (Manual) Nucleated RBC % Seg Neutrophils # Seg Neutrophils # Man Lymphocytes # (Manual) Monocytes # (Manual) Eosinophils # (Manual) PT INR Fibrinogen dRVVT Confirm Interp Factor V Activity POC ABG pH POC ABG pCO2 POC ABG pO2 Sodium Potassium Chloride Carbon Dioxide BUN Creatinine Glucose POC Glucose 109 H 110 H 124 H Lactic Acid Calcium Phosphorus Magnesium Direct Bilirubin AST ALT Alkaline Phosphatase Lactate Dehydrogenase Troponin T C-Reactive Protein Total Protein Albumin Prealbumin Triglycerides Cholesterol LDL Cholesterol Direct HDL Cholesterol Urine pH Urine WBC (Auto) Urine Creatinine Urine Total Protein Vancomycin Trough Rheumatoid Factor Complement C4 Miscellaneous Test Crossmatch 10/29/16 10/29/16 10/29/16 07:45 07:45 12:19 WBC 14.7 H RBC 3.15 L Hgb 9.3 L Hct 28.9 L MCV MCH MCHC RDW 17.0 H Plt Count Lymph % (Auto) 11.9 L [place] % (Auto) 8.6 H Lymph # [place] # 1.3 H Baso # Seg Neutrophils % 78.1 H Seg Neuts % (Manual) Lymphocytes % (Manual) Monocytes % (Manual) Eosinophils % (Manual) Basophils % (Manual) Nucleated RBC % Seg Neutrophils # 11.4 H Seg Neutrophils # Man Lymphocytes # (Manual) Monocytes # (Manual) Eosinophils # (Manual) PT INR Fibrinogen dRVVT Confirm Interp Factor V Activity POC ABG pH POC ABG pCO2 POC ABG pO2 Sodium Potassium 5.1 H Chloride Carbon Dioxide 19 L BUN 78 H Creatinine 2.2 H Glucose 116 H POC Glucose 118 H Lactic Acid Calcium Phosphorus Magnesium Direct Bilirubin AST ALT Alkaline Phosphatase Lactate Dehydrogenase Troponin T C-Reactive Protein Total Protein Albumin Prealbumin Triglycerides Cholesterol LDL Cholesterol Direct HDL Cholesterol Urine pH Urine WBC (Auto) Urine Creatinine Urine Total Protein Vancomycin Trough Rheumatoid Factor Complement C4 Miscellaneous Test Crossmatch 10/29/16 10/30/16 10/30/16 17:49 01:52 03:28 WBC RBC Hgb Hct MCV MCH MCHC RDW Plt Count Lymph % (Auto) [place] % (Auto) Lymph # [place] # Baso # Seg Neutrophils % Seg Neuts % (Manual) Lymphocytes % (Manual) Monocytes % (Manual) Eosinophils % (Manual) Basophils % (Manual) Nucleated RBC % Seg Neutrophils # Seg Neutrophils # Man Lymphocytes # (Manual) Monocytes # (Manual) Eosinophils # (Manual) PT INR Fibrinogen dRVVT Confirm Interp Factor V Activity POC ABG pH POC ABG pCO2 POC ABG pO2 Sodium Potassium 5.4 H Chloride 97.5 L Carbon Dioxide 19 L BUN 90 H Creatinine 2.5 H Glucose POC Glucose 120 H 129 H Lactic Acid Calcium Phosphorus 5.20 H Magnesium Direct Bilirubin AST ALT Alkaline Phosphatase Lactate Dehydrogenase Troponin T C-Reactive Protein Total Protein Albumin Prealbumin Triglycerides Cholesterol LDL Cholesterol Direct HDL Cholesterol Urine pH Urine WBC (Auto) Urine Creatinine Urine Total Protein Vancomycin Trough Rheumatoid Factor Complement C4 Miscellaneous Test Crossmatch 10/30/16 10/30/16 10/30/16 03:28 08:19 08:19 WBC 11.6 H 15.9 H RBC 2.75 L 2.82 L Hgb 7.9 L 8.3 L Hct 24.2 L 25.2 L MCV MCH MCHC RDW 16.7 H 17.2 H Plt Count Lymph % (Auto) [place] % (Auto) 9.8 H Lymph # [place] # 1.1 H Baso # Seg Neutrophils % 74.2 H Seg Neuts % (Manual) Lymphocytes % (Manual) Monocytes % (Manual) Eosinophils % (Manual) Basophils % (Manual) Nucleated RBC % Seg Neutrophils # 8.6 H Seg Neutrophils # Man Lymphocytes # (Manual) Monocytes # (Manual) Eosinophils # (Manual) PT INR Fibrinogen dRVVT Confirm Interp Factor V Activity POC ABG pH POC ABG pCO2 POC ABG pO2 Sodium Potassium 5.3 H Chloride 97.4 L Carbon Dioxide 19 L BUN 93 H Creatinine 2.6 H Glucose POC Glucose Lactic Acid Calcium Phosphorus Magnesium Direct Bilirubin AST ALT Alkaline Phosphatase Lactate Dehydrogenase Troponin T C-Reactive Protein Total Protein Albumin Prealbumin Triglycerides Cholesterol LDL Cholesterol Direct HDL Cholesterol Urine pH Urine WBC (Auto) Urine Creatinine Urine Total Protein Vancomycin Trough Rheumatoid Factor Complement C4 Miscellaneous Test Crossmatch 10/30/16 10/30/16 10/31/16 17:11 23:56 00:40 WBC RBC Hgb Hct MCV MCH MCHC RDW Plt Count Lymph % (Auto) [place] % (Auto) Lymph # [place] # Baso # Seg Neutrophils % Seg Neuts % (Manual) Lymphocytes % (Manual) Monocytes % (Manual) Eosinophils % (Manual) Basophils % (Manual) Nucleated RBC % Seg Neutrophils # Seg Neutrophils # Man Lymphocytes # (Manual) Monocytes # (Manual) Eosinophils # (Manual) PT INR Fibrinogen dRVVT Confirm Interp Factor V Activity POC ABG pH POC ABG pCO2 POC ABG pO2 Sodium Potassium Chloride Carbon Dioxide BUN Creatinine Glucose POC Glucose 106 H 117 H 120 H Lactic Acid Calcium Phosphorus Magnesium Direct Bilirubin AST ALT Alkaline Phosphatase Lactate Dehydrogenase Troponin T C-Reactive Protein Total Protein Albumin Prealbumin Triglycerides Cholesterol LDL Cholesterol Direct HDL Cholesterol Urine pH Urine WBC (Auto) Urine Creatinine Urine Total Protein Vancomycin Trough Rheumatoid Factor Complement C4 Miscellaneous Test Crossmatch 10/31/16 10/31/16 10/31/16 05:43 07:15 07:15 WBC 12.1 H RBC 2.63 L Hgb 7.7 L Hct 23.3 L MCV MCH MCHC RDW 16.7 H Plt Count Lymph % (Auto) 11.7 L [place] % (Auto) 7.7 H Lymph # [place] # 0.9 H Baso # Seg Neutrophils % 78.0 H Seg Neuts % (Manual) Lymphocytes % (Manual) Monocytes % (Manual) Eosinophils % (Manual) Basophils % (Manual) Nucleated RBC % Seg Neutrophils # 9.4 H Seg Neutrophils # Man Lymphocytes # (Manual) Monocytes # (Manual) Eosinophils # (Manual) PT INR Fibrinogen dRVVT Confirm Interp Factor V Activity POC ABG pH POC ABG pCO2 POC ABG pO2 Sodium Potassium Chloride 96.4 L Carbon Dioxide 21 L BUN 99 H Creatinine 2.6 H Glucose 144 H POC Glucose 125 H Lactic Acid Calcium Phosphorus 4.80 H Magnesium Direct Bilirubin AST ALT Alkaline Phosphatase Lactate Dehydrogenase Troponin T C-Reactive Protein Total Protein Albumin Prealbumin Triglycerides Cholesterol LDL Cholesterol Direct HDL Cholesterol Urine pH Urine WBC (Auto) Urine Creatinine Urine Total Protein Vancomycin Trough Rheumatoid Factor Complement C4 Miscellaneous Test Crossmatch 10/31/16 10/31/16 11/01/16 11:46 18:34 00:20 WBC RBC Hgb Hct MCV MCH MCHC RDW Plt Count Lymph % (Auto) [place] % (Auto) Lymph # [place] # Baso # Seg Neutrophils % Seg Neuts % (Manual) Lymphocytes % (Manual) Monocytes % (Manual) Eosinophils % (Manual) Basophils % (Manual) Nucleated RBC % Seg Neutrophils # Seg Neutrophils # Man Lymphocytes # (Manual) Monocytes # (Manual) Eosinophils # (Manual) PT INR Fibrinogen dRVVT Confirm Interp Factor V Activity POC ABG pH POC ABG pCO2 POC ABG pO2 Sodium Potassium Chloride Carbon Dioxide BUN Creatinine Glucose POC Glucose 159 H 140 H 132 H Lactic Acid Calcium Phosphorus Magnesium Direct Bilirubin AST ALT Alkaline Phosphatase Lactate Dehydrogenase Troponin T C-Reactive Protein Total Protein Albumin Prealbumin Triglycerides Cholesterol LDL Cholesterol Direct HDL Cholesterol Urine pH Urine WBC (Auto) Urine Creatinine Urine Total Protein Vancomycin Trough Rheumatoid Factor Complement C4 Miscellaneous Test Crossmatch 11/01/16 11/01/16 11/01/16 04:55 04:55 06:11 WBC 11.2 H RBC 2.68 L Hgb 7.5 L Hct 23.7 L MCV MCH MCHC RDW 16.1 H Plt Count Lymph % (Auto) [place] % (Auto) 9.8 H Lymph # [place] # 1.1 H Baso # Seg Neutrophils % 70.8 H Seg Neuts % (Manual) Lymphocytes % (Manual) Monocytes % (Manual) Eosinophils % (Manual) Basophils % (Manual) Nucleated RBC % Seg Neutrophils # 7.9 H Seg Neutrophils # Man Lymphocytes # (Manual) Monocytes # (Manual) Eosinophils # (Manual) PT INR Fibrinogen dRVVT Confirm Interp Factor V Activity POC ABG pH POC ABG pCO2 POC ABG pO2 Sodium Potassium 3.3 L D Chloride Carbon Dioxide BUN 61 H Creatinine 1.9 H Glucose 114 H POC Glucose 115 H Lactic Acid Calcium Phosphorus 1.80 L D Magnesium Direct Bilirubin AST ALT Alkaline Phosphatase Lactate Dehydrogenase Troponin T C-Reactive Protein Total Protein Albumin Prealbumin Triglycerides Cholesterol LDL Cholesterol Direct HDL Cholesterol Urine pH Urine WBC (Auto) Urine Creatinine Urine Total Protein Vancomycin Trough Rheumatoid Factor Complement C4 Miscellaneous Test Crossmatch 11/01/16 11/01/16 11/01/16 12:29 18:23 23:58 WBC RBC Hgb Hct MCV MCH MCHC RDW Plt Count Lymph % (Auto) [place] % (Auto) Lymph # [place] # Baso # Seg Neutrophils % Seg Neuts % (Manual) Lymphocytes % (Manual) Monocytes % (Manual) Eosinophils % (Manual) Basophils % (Manual) Nucleated RBC % Seg Neutrophils # Seg Neutrophils # Man Lymphocytes # (Manual) Monocytes # (Manual) Eosinophils # (Manual) PT INR Fibrinogen dRVVT Confirm Interp Factor V Activity POC ABG pH POC ABG pCO2 POC ABG pO2 Sodium Potassium Chloride Carbon Dioxide BUN Creatinine Glucose POC Glucose 142 H 143 H 128 H Lactic Acid Calcium Phosphorus Magnesium Direct Bilirubin AST ALT Alkaline Phosphatase Lactate Dehydrogenase Troponin T C-Reactive Protein Total Protein Albumin Prealbumin Triglycerides Cholesterol LDL Cholesterol Direct HDL Cholesterol Urine pH Urine WBC (Auto) Urine Creatinine Urine Total Protein Vancomycin Trough Rheumatoid Factor Complement C4 Miscellaneous Test Crossmatch 11/02/16 11/02/16 11/02/16 04:16 05:29 11:58 WBC RBC Hgb Hct MCV MCH MCHC RDW Plt Count Lymph % (Auto) [place] % (Auto) Lymph # [place] # Baso # Seg Neutrophils % Seg Neuts % (Manual) Lymphocytes % (Manual) Monocytes % (Manual) Eosinophils % (Manual) Basophils % (Manual) Nucleated RBC % Seg Neutrophils # Seg Neutrophils # Man Lymphocytes # (Manual) Monocytes # (Manual) Eosinophils # (Manual) PT INR Fibrinogen dRVVT Confirm Interp Factor V Activity POC ABG pH POC ABG pCO2 POC ABG pO2 Sodium Potassium 3.1 L Chloride Carbon Dioxide BUN 73 H Creatinine 2.3 H Glucose 112 H POC Glucose 135 H 149 H Lactic Acid Calcium Phosphorus Magnesium Direct Bilirubin AST ALT Alkaline Phosphatase Lactate Dehydrogenase Troponin T C-Reactive Protein Total Protein Albumin Prealbumin Triglycerides Cholesterol LDL Cholesterol Direct HDL Cholesterol Urine pH Urine WBC (Auto) Urine Creatinine Urine Total Protein Vancomycin Trough Rheumatoid Factor Complement C4 Miscellaneous Test Crossmatch 11/02/16 11/02/16 11/03/16 17:42 22:54 06:00 WBC RBC Hgb Hct MCV MCH MCHC RDW Plt Count Lymph % (Auto) [place] % (Auto) Lymph # [place] # Baso # Seg Neutrophils % Seg Neuts % (Manual) Lymphocytes % (Manual) Monocytes % (Manual) Eosinophils % (Manual) Basophils % (Manual) Nucleated RBC % Seg Neutrophils # Seg Neutrophils # Man Lymphocytes # (Manual) Monocytes # (Manual) Eosinophils # (Manual) PT INR Fibrinogen dRVVT Confirm Interp Factor V Activity POC ABG pH POC ABG pCO2 POC ABG pO2 Sodium Potassium Chloride 96.7 L Carbon Dioxide BUN 41 H Creatinine 1.5 H Glucose 145 H POC Glucose 182 H 115 H Lactic Acid Calcium Phosphorus 1.60 L D Magnesium 1.50 L Direct Bilirubin AST ALT Alkaline Phosphatase Lactate Dehydrogenase Troponin T C-Reactive Protein Total Protein Albumin Prealbumin Triglycerides Cholesterol LDL Cholesterol Direct HDL Cholesterol Urine pH Urine WBC (Auto) Urine Creatinine Urine Total Protein Vancomycin Trough Rheumatoid Factor Complement C4 Miscellaneous Test Crossmatch 11/03/16 11/03/16 11/03/16 11:53 17:45 23:37 WBC RBC Hgb Hct MCV MCH MCHC RDW Plt Count Lymph % (Auto) [place] % (Auto) Lymph # [place] # Baso # Seg Neutrophils % Seg Neuts % (Manual) Lymphocytes % (Manual) Monocytes % (Manual) Eosinophils % (Manual) Basophils % (Manual) Nucleated RBC % Seg Neutrophils # Seg Neutrophils # Man Lymphocytes # (Manual) Monocytes # (Manual) Eosinophils # (Manual) PT INR Fibrinogen dRVVT Confirm Interp Factor V Activity POC ABG pH POC ABG pCO2 POC ABG pO2 Sodium Potassium Chloride Carbon Dioxide BUN Creatinine Glucose POC Glucose 131 H 134 H 113 H Lactic Acid Calcium Phosphorus Magnesium Direct Bilirubin AST ALT Alkaline Phosphatase Lactate Dehydrogenase Troponin T C-Reactive Protein Total Protein Albumin Prealbumin Triglycerides Cholesterol LDL Cholesterol Direct HDL Cholesterol Urine pH Urine WBC (Auto) Urine Creatinine Urine Total Protein Vancomycin Trough Rheumatoid Factor Complement C4 Miscellaneous Test Crossmatch 11/04/16 11/04/16 11/04/16 05:41 06:00 12:10 WBC RBC Hgb Hct MCV MCH MCHC RDW Plt Count Lymph % (Auto) [place] % (Auto) Lymph # [place] # Baso # Seg Neutrophils % Seg Neuts % (Manual) Lymphocytes % (Manual) Monocytes % (Manual) Eosinophils % (Manual) Basophils % (Manual) Nucleated RBC % Seg Neutrophils # Seg Neutrophils # Man Lymphocytes # (Manual) Monocytes # (Manual) Eosinophils # (Manual) PT INR Fibrinogen dRVVT Confirm Interp Factor V Activity POC ABG pH POC ABG pCO2 POC ABG pO2 Sodium Potassium Chloride 96.7 L Carbon Dioxide BUN 52 H Creatinine 1.9 H Glucose 126 H POC Glucose 137 H 191 H Lactic Acid Calcium Phosphorus Magnesium Direct Bilirubin AST ALT Alkaline Phosphatase Lactate Dehydrogenase Troponin T C-Reactive Protein Total Protein Albumin Prealbumin Triglycerides Cholesterol LDL Cholesterol Direct HDL Cholesterol Urine pH Urine WBC (Auto) Urine Creatinine Urine Total Protein Vancomycin Trough Rheumatoid Factor Complement C4 Miscellaneous Test Crossmatch 11/04/16 11/05/16 11/05/16 22:57 03:10 05:10 WBC RBC Hgb Hct MCV MCH MCHC RDW Plt Count Lymph % (Auto) [place] % (Auto) Lymph # [place] # Baso # Seg Neutrophils % Seg Neuts % (Manual) Lymphocytes % (Manual) Monocytes % (Manual) Eosinophils % (Manual) Basophils % (Manual) Nucleated RBC % Seg Neutrophils # Seg Neutrophils # Man Lymphocytes # (Manual) Monocytes # (Manual) Eosinophils # (Manual) PT INR Fibrinogen dRVVT Confirm Interp Factor V Activity POC ABG pH POC ABG pCO2 POC ABG pO2 Sodium 136 L Potassium Chloride 97.2 L Carbon Dioxide BUN 32 H Creatinine 1.3 H Glucose 123 H POC Glucose 125 H 108 H Lactic Acid Calcium 7.8 L Phosphorus Magnesium Direct Bilirubin AST ALT Alkaline Phosphatase Lactate Dehydrogenase Troponin T C-Reactive Protein Total Protein Albumin Prealbumin Triglycerides Cholesterol LDL Cholesterol Direct HDL Cholesterol Urine pH Urine WBC (Auto) Urine Creatinine Urine Total Protein Vancomycin Trough Rheumatoid Factor Complement C4 Miscellaneous Test Crossmatch 11/05/16 11/05/16 11/05/16 12:23 13:09 13:25 WBC RBC Hgb Hct MCV MCH MCHC RDW Plt Count Lymph % (Auto) [place] % (Auto) Lymph # [place] # Baso # Seg Neutrophils % Seg Neuts % (Manual) Lymphocytes % (Manual) Monocytes % (Manual) Eosinophils % (Manual) Basophils % (Manual) Nucleated RBC % Seg Neutrophils # Seg Neutrophils # Man Lymphocytes # (Manual) Monocytes # (Manual) Eosinophils # (Manual) PT INR Fibrinogen dRVVT Confirm Interp Factor V Activity POC ABG pH POC ABG pCO2 POC ABG pO2 Sodium Potassium Chloride Carbon Dioxide BUN Creatinine Glucose POC Glucose 124 H Lactic Acid Calcium Phosphorus Magnesium Direct Bilirubin AST ALT Alkaline Phosphatase Lactate Dehydrogenase Troponin T C-Reactive Protein 11.40 H Total Protein Albumin Prealbumin Triglycerides Cholesterol LDL Cholesterol Direct HDL Cholesterol Urine pH 9.0 H Urine WBC (Auto) Urine Creatinine Urine Total Protein Vancomycin Trough Rheumatoid Factor Complement C4 Miscellaneous Test Crossmatch 11/05/16 11/05/16 11/05/16 13:25 17:54 23:42 WBC RBC Hgb Hct MCV MCH MCHC RDW Plt Count Lymph % (Auto) [place] % (Auto) Lymph # [place] # Baso # Seg Neutrophils % Seg Neuts % (Manual) Lymphocytes % (Manual) Monocytes % (Manual) Eosinophils % (Manual) Basophils % (Manual) Nucleated RBC % Seg Neutrophils # Seg Neutrophils # Man Lymphocytes # (Manual) Monocytes # (Manual) Eosinophils # (Manual) PT INR Fibrinogen dRVVT Confirm Interp Factor V Activity POC ABG pH POC ABG pCO2 POC ABG pO2 Sodium Potassium Chloride Carbon Dioxide BUN Creatinine Glucose POC Glucose 114 H 134 H Lactic Acid Calcium Phosphorus Magnesium Direct Bilirubin AST ALT Alkaline Phosphatase Lactate Dehydrogenase Troponin T C-Reactive Protein Total Protein Albumin Prealbumin Triglycerides Cholesterol LDL Cholesterol Direct HDL Cholesterol Urine pH Urine WBC (Auto) Urine Creatinine Urine Total Protein Vancomycin Trough Rheumatoid Factor Complement C4 Miscellaneous Test Flexitest 1 H Crossmatch 11/06/16 11/06/16 11/06/16 04:56 06:25 06:25 WBC RBC 2.50 L Hgb 7.3 L Hct 22.5 L MCV MCH MCHC RDW 16.9 H Plt Count Lymph % (Auto) [place] % (Auto) 10.5 H Lymph # [place] # 1.1 H Baso # Seg Neutrophils % Seg Neuts % (Manual) Lymphocytes % (Manual) Monocytes % (Manual) Eosinophils % (Manual) Basophils % (Manual) Nucleated RBC % Seg Neutrophils # Seg Neutrophils # Man Lymphocytes # (Manual) Monocytes # (Manual) Eosinophils # (Manual) PT INR Fibrinogen dRVVT Confirm Interp Factor V Activity POC ABG pH POC ABG pCO2 POC ABG pO2 Sodium Potassium 5.1 H Chloride 95.9 L Carbon Dioxide BUN 52 H Creatinine 1.8 H Glucose 117 H POC Glucose 120 H Lactic Acid Calcium Phosphorus Magnesium Direct Bilirubin AST 103 H ALT 77 H Alkaline Phosphatase 285 H Lactate Dehydrogenase Troponin T C-Reactive Protein Total Protein 6.2 L Albumin 1.8 L Prealbumin 0.180 L Triglycerides Cholesterol LDL Cholesterol Direct HDL Cholesterol Urine pH Urine WBC (Auto) Urine Creatinine Urine Total Protein Vancomycin Trough Rheumatoid Factor Complement C4 Miscellaneous Test Crossmatch 11/06/16 11/06/16 11/06/16 11:56 17:14 23:52 WBC RBC Hgb Hct MCV MCH MCHC RDW Plt Count Lymph % (Auto) [place] % (Auto) Lymph # [place] # Baso # Seg Neutrophils % Seg Neuts % (Manual) Lymphocytes % (Manual) Monocytes % (Manual) Eosinophils % (Manual) Basophils % (Manual) Nucleated RBC % Seg Neutrophils # Seg Neutrophils # Man Lymphocytes # (Manual) Monocytes # (Manual) Eosinophils # (Manual) PT INR Fibrinogen dRVVT Confirm Interp Factor V Activity POC ABG pH POC ABG pCO2 POC ABG pO2 Sodium Potassium Chloride Carbon Dioxide BUN Creatinine Glucose POC Glucose 141 H 125 H 130 H Lactic Acid Calcium Phosphorus Magnesium Direct Bilirubin AST ALT Alkaline Phosphatase Lactate Dehydrogenase Troponin T C-Reactive Protein Total Protein Albumin Prealbumin Triglycerides Cholesterol LDL Cholesterol Direct HDL Cholesterol Urine pH Urine WBC (Auto) Urine Creatinine Urine Total Protein Vancomycin Trough Rheumatoid Factor Complement C4 Miscellaneous Test Crossmatch 11/07/16 11/07/16 11/07/16 06:30 06:30 09:37 WBC RBC 2.18 L Hgb 6.3 L Hct 19.7 L* MCV MCH MCHC RDW 16.8 H Plt Count Lymph % (Auto) [place] % (Auto) 10.0 H Lymph # [place] # 1.0 H Baso # Seg Neutrophils % Seg Neuts % (Manual) Lymphocytes % (Manual) Monocytes % (Manual) Eosinophils % (Manual) Basophils % (Manual) Nucleated RBC % Seg Neutrophils # Seg Neutrophils # Man Lymphocytes # (Manual) Monocytes # (Manual) Eosinophils # (Manual) PT INR Fibrinogen dRVVT Confirm Interp Factor V Activity POC ABG pH POC ABG pCO2 POC ABG pO2 Sodium 135 L Potassium Chloride 95.6 L Carbon Dioxide BUN 70 H Creatinine 2.0 H Glucose 126 H POC Glucose Lactic Acid Calcium Phosphorus Magnesium Direct Bilirubin AST ALT Alkaline Phosphatase Lactate Dehydrogenase Troponin T C-Reactive Protein Total Protein Albumin Prealbumin Triglycerides Cholesterol LDL Cholesterol Direct HDL Cholesterol Urine pH Urine WBC (Auto) Urine Creatinine Urine Total Protein Vancomycin Trough Rheumatoid Factor Complement C4 Miscellaneous Test Crossmatch See Detail 11/07/16 11/07/16 11/07/16 12:52 18:51 21:26 WBC RBC Hgb Hct MCV MCH MCHC RDW Plt Count Lymph % (Auto) [place] % (Auto) Lymph # [place] # Baso # Seg Neutrophils % Seg Neuts % (Manual) Lymphocytes % (Manual) Monocytes % (Manual) Eosinophils % (Manual) Basophils % (Manual) Nucleated RBC % Seg Neutrophils # Seg Neutrophils # Man Lymphocytes # (Manual) Monocytes # (Manual) Eosinophils # (Manual) PT INR Fibrinogen dRVVT Confirm Interp Factor V Activity POC ABG pH 7.523 H POC ABG pCO2 34.6 L POC ABG pO2 53 L Sodium Potassium Chloride Carbon Dioxide BUN Creatinine Glucose POC Glucose 142 H 155 H Lactic Acid Calcium Phosphorus Magnesium Direct Bilirubin AST ALT Alkaline Phosphatase Lactate Dehydrogenase Troponin T C-Reactive Protein Total Protein Albumin Prealbumin Triglycerides Cholesterol LDL Cholesterol Direct HDL Cholesterol Urine pH Urine WBC (Auto) Urine Creatinine Urine Total Protein Vancomycin Trough Rheumatoid Factor Complement C4 Miscellaneous Test Crossmatch 11/07/16 11/08/16 11/08/16 21:34 13:03 23:37 WBC RBC 2.63 L Hgb 7.7 L Hct 22.7 L MCV MCH MCHC RDW 17.0 H Plt Count Lymph % (Auto) [place] % (Auto) Lymph # [place] # Baso # Seg Neutrophils % Seg Neuts % (Manual) Lymphocytes % (Manual) Monocytes % (Manual) Eosinophils % (Manual) Basophils % (Manual) Nucleated RBC % Seg Neutrophils # Seg Neutrophils # Man Lymphocytes # (Manual) Monocytes # (Manual) Eosinophils # (Manual) PT INR Fibrinogen dRVVT Confirm Interp Factor V Activity POC ABG pH 7.478 H POC ABG pCO2 34.0 L POC ABG pO2 50 L Sodium Potassium Chloride Carbon Dioxide BUN Creatinine Glucose POC Glucose 113 H Lactic Acid Calcium Phosphorus Magnesium Direct Bilirubin AST ALT Alkaline Phosphatase Lactate Dehydrogenase Troponin T C-Reactive Protein Total Protein Albumin Prealbumin Triglycerides Cholesterol LDL Cholesterol Direct HDL Cholesterol Urine pH Urine WBC (Auto) Urine Creatinine Urine Total Protein Vancomycin Trough Rheumatoid Factor Complement C4 Miscellaneous Test Crossmatch 11/09/16 11/09/16 11/09/16 04:35 10:15 18:21 WBC RBC 2.68 L Hgb 7.8 L Hct 23.3 L MCV MCH MCHC RDW 17.0 H Plt Count Lymph % (Auto) [place] % (Auto) 12.1 H Lymph # [place] # 1.1 H Baso # Seg Neutrophils % Seg Neuts % (Manual) Lymphocytes % (Manual) Monocytes % (Manual) Eosinophils % (Manual) Basophils % (Manual) Nucleated RBC % Seg Neutrophils # Seg Neutrophils # Man Lymphocytes # (Manual) Monocytes # (Manual) Eosinophils # (Manual) PT INR Fibrinogen dRVVT Confirm Interp Factor V Activity POC ABG pH POC ABG pCO2 POC ABG pO2 Sodium Potassium Chloride Carbon Dioxide BUN 51 H Creatinine 1.8 H Glucose POC Glucose 60 L Lactic Acid Calcium 8.3 L Phosphorus Magnesium Direct Bilirubin AST ALT Alkaline Phosphatase Lactate Dehydrogenase Troponin T C-Reactive Protein Total Protein Albumin Prealbumin Triglycerides Cholesterol LDL Cholesterol Direct HDL Cholesterol Urine pH Urine WBC (Auto) Urine Creatinine Urine Total Protein Vancomycin Trough Rheumatoid Factor Complement C4 Miscellaneous Test Crossmatch 11/09/16 11/10/16 11/10/16 18:55 07:00 11:51 WBC RBC Hgb Hct MCV MCH MCHC RDW Plt Count Lymph % (Auto) [place] % (Auto) Lymph # [place] # Baso # Seg Neutrophils % Seg Neuts % (Manual) Lymphocytes % (Manual) Monocytes % (Manual) Eosinophils % (Manual) Basophils % (Manual) Nucleated RBC % Seg Neutrophils # Seg Neutrophils # Man Lymphocytes # (Manual) Monocytes # (Manual) Eosinophils # (Manual) PT INR Fibrinogen dRVVT Confirm Interp Factor V Activity POC ABG pH POC ABG pCO2 POC ABG pO2 Sodium Potassium 3.0 L D Chloride 97.4 L Carbon Dioxide BUN 28 H Creatinine 1.3 H Glucose POC Glucose 68 L 120 H Lactic Acid Calcium 7.8 L Phosphorus Magnesium Direct Bilirubin AST ALT Alkaline Phosphatase Lactate Dehydrogenase Troponin T C-Reactive Protein Total Protein Albumin Prealbumin Triglycerides Cholesterol LDL Cholesterol Direct HDL Cholesterol Urine pH Urine WBC (Auto) Urine Creatinine Urine Total Protein Vancomycin Trough Rheumatoid Factor Complement C4 Miscellaneous Test Crossmatch 11/11/16 11/11/16 11/11/16 06:59 06:59 06:59 WBC RBC 2.81 L Hgb 8.1 L Hct 24.4 L MCV MCH MCHC RDW 16.4 H Plt Count Lymph % (Auto) [place] % (Auto) 10.8 H Lymph # [place] # 1.0 H Baso # Seg Neutrophils % Seg Neuts % (Manual) Lymphocytes % (Manual) Monocytes % (Manual) Eosinophils % (Manual) Basophils % (Manual) Nucleated RBC % Seg Neutrophils # Seg Neutrophils # Man Lymphocytes # (Manual) Monocytes # (Manual) Eosinophils # (Manual) PT INR Fibrinogen dRVVT Confirm Interp Factor V Activity POC ABG pH POC ABG pCO2 POC ABG pO2 Sodium 136 L Potassium Chloride 96.1 L Carbon Dioxide BUN 37 H Creatinine 1.8 H Glucose POC Glucose Lactic Acid Calcium Phosphorus Magnesium Direct Bilirubin AST ALT Alkaline Phosphatase Lactate Dehydrogenase 196 H Troponin T C-Reactive Protein Total Protein 6.1 L Albumin Prealbumin Triglycerides Cholesterol LDL Cholesterol Direct HDL Cholesterol Urine pH Urine WBC (Auto) Urine Creatinine Urine Total Protein Vancomycin Trough Rheumatoid Factor Complement C4 Miscellaneous Test Crossmatch 11/11/16 11/12/16 11/12/16 09:50 04:00 04:00 WBC RBC Hgb 8.9 L Hct 27.2 L MCV MCH MCHC RDW Plt Count Lymph % (Auto) [place] % (Auto) Lymph # [place] # Baso # Seg Neutrophils % Seg Neuts % (Manual) Lymphocytes % (Manual) Monocytes % (Manual) Eosinophils % (Manual) Basophils % (Manual) Nucleated RBC % Seg Neutrophils # Seg Neutrophils # Man Lymphocytes # (Manual) Monocytes # (Manual) Eosinophils # (Manual) PT INR 1.18 H Fibrinogen dRVVT Confirm Interp Factor V Activity POC ABG pH POC ABG pCO2 POC ABG pO2 Sodium 133 L Potassium Chloride 94.8 L Carbon Dioxide 21 L BUN 42 H Creatinine 2.0 H Glucose POC Glucose Lactic Acid Calcium Phosphorus Magnesium Direct Bilirubin AST ALT Alkaline Phosphatase Lactate Dehydrogenase Troponin T C-Reactive Protein Total Protein Albumin Prealbumin Triglycerides Cholesterol LDL Cholesterol Direct HDL Cholesterol Urine pH Urine WBC (Auto) Urine Creatinine Urine Total Protein Vancomycin Trough Rheumatoid Factor Complement C4 Miscellaneous Test Crossmatch 11/12/16 11/13/16 11/13/16 23:55 05:53 Unknown WBC RBC Hgb Hct MCV MCH MCHC RDW Plt Count Lymph % (Auto) [place] % (Auto) Lymph # [place] # Baso # Seg Neutrophils % Seg Neuts % (Manual) Lymphocytes % (Manual) Monocytes % (Manual) Eosinophils % (Manual) Basophils % (Manual) Nucleated RBC % Seg Neutrophils # Seg Neutrophils # Man Lymphocytes # (Manual) Monocytes # (Manual) Eosinophils # (Manual) PT INR Fibrinogen dRVVT Confirm Interp Factor V Activity POC ABG pH POC ABG pCO2 POC ABG pO2 Sodium 135 L Potassium Chloride 95.2 L Carbon Dioxide BUN 52 H Creatinine 2.2 H Glucose POC Glucose 132 H 120 H Lactic Acid Calcium Phosphorus Magnesium Direct Bilirubin AST ALT Alkaline Phosphatase Lactate Dehydrogenase Troponin T C-Reactive Protein Total Protein Albumin Prealbumin Triglycerides Cholesterol LDL Cholesterol Direct HDL Cholesterol Urine pH Urine WBC (Auto) Urine Creatinine Urine Total Protein Vancomycin Trough Rheumatoid Factor Complement C4 Miscellaneous Test Crossmatch Allied health notes reviewed: RT
--- NOTE | 2016-11-13 11:29 | XRay Report ---
Single view abdomen: History: Feeding tube placement. Findings: Tip of the feeding tube is in the stomach with the tip pointing at the GE junction. The Dobbhoff feeding tube should be withdrawn approximately 4 cm. Impression: Findings as detailed above.
--- NOTE | 2016-11-13 11:56 | Progress Note ---
Assessment and Plan Assessment: 1) Recurrent Sepsis: new episode ? unclear source ? line infection ? persistent abd wound output -S/p multiple episodes of sepsis - initially due to presumed aspiration pneumonia, then septic episode on 09/23 from Candidemia. Then from - peritonitis from gastric perforation +/- UTI. Latest episode was due to abdominal wall abscess at surgical site. -CRP 19 --> 22 -->11 -Procalcitonin=24 --> 16 --> 4.3 --> 1.8 on 10/05 -Vascath tip + Coag neg Staph, GNR - removed -repeat CT no abscess. Reviewed CT with radiologist NO fistula bue a 2x2cm abdominal wall collection. Same area previously grew Pseudomonas MDR sens to cefepime -recent respiratory specimen + MDR Pseudomonas-likely a colonizer -Urine grew VRE with negative UA-likely a colonizer 2) History of Peritonitis: from gastric perforation from dislodged PEG with significant ascites -S/P exlap, repair of gastric perforation with wedge gastrectomy, abdominal washout, drain placement on 10/05. 3) History of Candidemia: -Blood cultures positive for Silvia albicans on 09/23 -Blood cultures positive on 09/25 -Blood cultures negative on 09/30 -PICC line changed on 10/03 -Source ? gastric perf (PEG placed on 09/20) +/- TPN +/- central lines -TTE 10/07 no vegetations -PICC exchanged on 10/03 -fully treated with micafungin for 14 days last day 10/13 4) History CA-UTI s/p gutierrez exchanged 5) Diarrhea - ? etiology ? antibiotic-induced, not better 6) Initial presumed aspiration pneumonia 7) Respiratory failure s/p trach 8) Recent CVA-left MCA CVA 9) Uncontrolled HTN 10) Acute on CKD 11) Extensive back skin peeling ? burn from gastric secretions. Doubt allergic reaction - resolved 12) Severe anemia; ? from GI bleed 13) Recent abdominal wall abscess at surgical site-treated Plan: -stop cefepime and vancomycin - day 7 of 7 -monitor fever off antibiotics -overall prognosis guarded, patient at high risk for nosocomial infections Thank you Dr Ribeiro for your consultation, will follow up with you. Pauline Carias MD Infectious Diseases Specialist [facility] ([facility] M [phone] O [phone] Subjective Date of service: 11/13/16 Principal diagnosis: Acute resp failure on MVS; S/P Acute CVA; Acute Encephalopathy; JUANITA Interval history: Interval history: Noted low grade fever, tachycardic at 120s on monitor while on t-pieces Microbiology: Blood cultures: 09/13 neg 8/4 Silvia albicans 09/25 Silvia 09/29 neg 10/07 neg 11/05 neg 11/07 ngtd Urine cultures: 09/10 neg 09/13 neg 8/ 10-100K mixed species 10/07 neg 11/05 VRE 11/07 mixed bacteria Respiratory cultures: 09/07 neg 09/13 neg 09/23 neg 11/07 MDR Pseudomonas Wound cultures: 10/17 abd wall wound purulence + Pseudomonas MDR Stool cultures: cath tip 11/07 + [employer] Current Antimicrobials: Cefepime 11/10 vancomyin 11/07 Previous Antimicrobials: Zosyn 10/07 Vancomycin PO 10/01 Metronidazole 09/25 Micafungin 09/27-10/13 Meropenem 10/10 Vanco 10/17 zosyn 10/21 fluconazole 10/19 cefepime 10/29levaquin 11/05 Objective - Exam Narrative Exam: General appearance: alert, non communicative, on the vent via trach no following commands Eyes: anicteric sclera, moist conjunctivae; PERRLA HENT: Atraumatic; oropharynx limited; Normal external ears. +NGT with greenish secretion Neck: +trach in place; supple, no thyromegaly or lymphadenopathy Lungs: CTA CV: tachycardic Abdomen: Soft, non-tender, +old PEG site no drainage. +iliostomy. Right sided Surgical site x 2 with ostomy bag draining thick yellowish secretion Extremities: +peripheral edema no extremity lymphadenopathy Skin: sacral area wounds superficial no purulence Psych: somnolent . Neuro: alert non verbal on the vent. Lines: left arm PICC placed on 10/03 - Constitutional Vitals: Vital Signs Temp Pulse Resp BP Pulse Ox 97.7 F 112 H 37 H 203/114 100 11/13/16 07:57 11/13/16 11:52 11/13/16 11:00 11/13/16 11:52 11/13/16 11:00 Temperature -Last 24 Hours Temperature 97.7 F Temperature 100.3 F Temperature 100.3 F Temperature 99.9 F Temperature 99.8 F Temperature 99.1 F Temperature 98.6 F - Labs CBC & Chem 7: 11/12/16 04:00 11/13/16 Unknown Labs: Abnormal lab results 11/12/16 11/13/16 11/13/16 Range/Units 23:55 05:53 Unknown Sodium 135 L (137-145) mmol/L Chloride 95.2 L (98-107) mmol/L BUN 52 H (7-17) mg/dL Creatinine 2.2 H (0.7-1.2) mg/dL POC Glucose 132 H 120 H (70-105)
[2016-11-13 12:19] LABS: Creatinine,Urine 19.7 mg/dL (0.1-20.0)
--- NOTE | 2016-11-13 12:38 | XRay Report ---
Single view abdomen: History: Feeding tube placement. Findings: Tip of Dobbhoff feeding tube is noted in the fundus of the stomach. Impression: Satisfactory position of tip of the feeding tube.
--- NOTE | 2016-11-13 13:19 | Progress Note ---
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 Objective - Vital Signs Vital signs: Vital Signs - 12hr 11/13/16 11/13/16 11/13/16 01:31 02:00 02:31 Temperature Pulse Rate 108 H 113 H 111 H Pulse Rate [ From Monitor] Respiratory 21 23 21 Rate Blood Pressure 175/94 188/101 188/101 O2 Sat by Pulse 100 100 100 Oximetry O2 Sat by Pulse Oximetry [ Assessment] 11/13/16 11/13/16 11/13/16 03:00 03:07 03:31 Temperature Pulse Rate 113 H 114 H 113 H Pulse Rate [ From Monitor] Respiratory 23 21 Rate Blood Pressure 194/103 194/103 194/103 O2 Sat by Pulse 99 100 100 Oximetry O2 Sat by Pulse Oximetry [ Assessment] 11/13/16 11/13/16 11/13/16 03:53 04:00 04:31 Temperature 100.3 F H 100.3 F H Pulse Rate 115 H 115 H Pulse Rate [ 118 H From Monitor] Respiratory 22 20 Rate Blood Pressure 209/114 213/113 O2 Sat by Pulse 99 100 Oximetry O2 Sat by Pulse Oximetry [ Assessment] 11/13/16 11/13/16 11/13/16 05:00 05:31 06:00 Temperature Pulse Rate 115 H 121 H 119 H Pulse Rate [ From Monitor] Respiratory 20 21 25 H Rate Blood Pressure 192/101 192/101 189/105 O2 Sat by Pulse 100 Oximetry O2 Sat by Pulse Oximetry [ Assessment] 11/13/16 11/13/16 11/13/16 06:02 06:31 07:00 Temperature Pulse Rate 119 H 121 H 118 H Pulse Rate [ From Monitor] Respiratory 21 20 Rate Blood Pressure 189/105 189/105 204/104 O2 Sat by Pulse 98 99 Oximetry O2 Sat by Pulse Oximetry [ Assessment] 11/13/16 11/13/16 11/13/16 07:31 07:57 08:00 Temperature 97.7 F Pulse Rate 114 H 113 H Pulse Rate [ From Monitor] Respiratory 21 20 Rate Blood Pressure 204/104 204/104 O2 Sat by Pulse 99 99 Oximetry O2 Sat by Pulse Oximetry [ Assessment] 11/13/16 11/13/16 11/13/16 08:30 08:31 08:35 Temperature Pulse Rate 100 H Pulse Rate [ From Monitor] Respiratory 15 Rate Blood Pressure 201/114 129/82 O2 Sat by Pulse 100 Oximetry O2 Sat by Pulse 100 Oximetry [ Assessment] 11/13/16 11/13/16 11/13/16 08:45 09:00 09:13 Temperature Pulse Rate 118 H 119 H Pulse Rate [ From Monitor] Respiratory 33 H Rate Blood Pressure 196/103 196/103 O2 Sat by Pulse 100 100 Oximetry O2 Sat by Pulse Oximetry [ Assessment] 11/13/16 11/13/16 11/13/16 09:31 10:00 10:30 Temperature Pulse Rate 113 H 111 H 111 H Pulse Rate [ From Monitor] Respiratory 28 H 32 H 33 H Rate Blood Pressure 196/103 195/105 195/105 O2 Sat by Pulse 100 100 100 Oximetry O2 Sat by Pulse Oximetry [ Assessment] 11/13/16 11/13/16 11/13/16 11:00 11:31 11:47 Temperature Pulse Rate 114 H 116 H 125 H Pulse Rate [ From Monitor] Respiratory 37 H 33 H Rate Blood Pressure 201/108 201/108 203/114 O2 Sat by Pulse 100 99 98 Oximetry O2 Sat by Pulse Oximetry [ Assessment] 11/13/16 11/13/16 11:52 12:00 Temperature 97.9 F Pulse Rate 112 H 112 H Pulse Rate [ From Monitor] Respiratory 21 Rate Blood Pressure 203/114 159/93 O2 Sat by Pulse 100 Oximetry O2 Sat by Pulse Oximetry [ Assessment] - General Appearance General appearance: well-developed, intubated (via trach) EENT: ATNC Respiratory: Present: Other (coarse bilateral breath sounds) Cardiology: regular, S1S2 Gastrointestinal: normoactive bowel sounds, no distended Musculoskeletal: other (trace edema) - Lab 11/12/16 04:00 11/13/16 Unknown Most recent lab results Calcium 8.9 mg/dL (8.4-10.2) 11/13/16 Unknown Phosphorus 4.40 mg/dL (2.5-4.5) 11/07/16 06:30 Magnesium 2.20 mg/dL (1.7-2.3) 11/07/16 06:30 Urine Creatinine 19.7 mg/dL (0.1-20.0) 11/12/16 10:18 Urine Sodium 36 mEq/L 09/16/16 19:19 Urine Total Protein 16 mg/dL (5-11.8) H 09/16/16 19:19
[2016-11-13] MEDS: DURAGESIC TD SCH (13:41)
[2016-11-13] MEDS: APRESOLINE PO SCH ×2 (13:41→21:04)
[2016-11-13] MEDS: LOPRESSOR FEEDTUBE SCH ×2 (13:42→18:07)
[2016-11-13] MEDS: CATAPRES-TTS PATCH TD SCH (16:38)
[2016-11-13] MEDS: TYLENOL FEEDTUBE PRN (21:04)
[2016-11-14] MEDS: APRESOLINE IV PRN ×2 (00:11→14:29)
[2016-11-14] MEDS: LOPRESSOR FEEDTUBE SCH ×3 (02:59→18:10)
[2016-11-14] MEDS: HumuLIN R SUB-Q SCH ×3 (06:26→17:46)
[2016-11-14] MEDS: APRESOLINE PO SCH ×3 (06:27→21:38)
[2016-11-14] MEDS: TYLENOL FEEDTUBE PRN (06:29)
--- NOTE | 2016-11-14 08:25 | Progress Note ---
Assessment and Plan Assessment and plan: 46-year-old woman with a history of hypertension, diabetes, asthma, hyperlipidemia, chronic kidney disease and anxiety , who was brought in by family because, she couldn't get her words out, her face was also twisted, she was admitted for acute CVA and accelerated hypertension, she had a hx of poor adherence with her medications, and uncontrolled htn. Patient's SBP on admission was noted be greater than 260. TPA was started but this was discontinued after 5 minutes because her blood pressure became uncontrolled. The TPA was not initiated again because the patient was outside the TPA window. Fever Had fever of 100.3 yesterday. ID Physician following. I have discussed case with her multiple times. Patient was recently on Cefepime and Vancomycin, now discontinued few days ago by ID Physician , to monitor off Antibiotics. chest x-ray, blood cultures were unremarkable, catheter site growing multiple organisms -Severe Sepsis with septic shock, recurrent. Patient with multiple episodes of sepsis. Initial episode due to presumed aspiration pneumonia and septic episode on 09/23 from candidemia then a third episode from peritonitis from gastric perforation from dislodged PEG , there was an abscess in the abdomen present at that time that was draining pus. +/-UTI. The latest episode was related to surgical site infection. Antibiotics discontinued few days ago. ID Physician to follow. Surgical wound infection/gram-negative sepsis/candidemia/peritonitis PEG has been removed She will need to be on tube feeds through NG tube for a month, and then either a gastrostomy or jejunostomy tube replaced after her GI wounds have healed and infection is cleared -continue wound care to ostomy sites JUANITA, now ESRD Likely due to vasomotor nephropathy and ATN given sepsis Nephrology input appreciated, continue hemodialysis as per Nephrology Creatinine 2.2 today Acute CVA with infarct. sp TPA Continue neuro checks. Neurology input appreciated, CT shows continued evolution of left MCA infarct with slight mass effect and edema, and there is no hemorrhage - PRINCE showed hyperdynamic with ef of 75%, neither clot nor septal defect seen - MRA Brain shows near complete occlusion of M2 and M3 of the left MCA - Repeat CT scan done on 09/11, shows stable findings - carotid doppler negative - Echo shows preserved systolic function but does show some left ventricular diastolic dysfunction - continue asa and statin for secondary ppx Paroxysmal atrial fibrillation. On Metoprolol Persistent vegetative state This patient's needs placement at either hospice or SNF -She was denied for LTACH Acute hypoxic respiratory failure requiring MV >96hrs Status post tracheostomy, continue to wean off vent, has been tolerating T piece Nosocomial acquired aspiration pneumonia/sepsis/UTI She had completed a course of antibiotics. Now on Cefepime and Vanco for fever Asthma/COPD exacerbation Now has trach Acute Toxic Metabolic encephalopathy. Multitifactorial, mostly secondary to evolution of CVA Hypertensive Emergency Now on Metoprolol, Cozaar,Hydralazine, Clonidine patch. Bilateral pleural effusion, s/p right thoracentesis today Paroxysmal atrial fibrillation with rapid ventricular rate, failed cardioversion Continue current medications, Not a candidate for anticoagulation secondary to anemia, thrombocytopenia, and massive CVA Hypokalemia/Hypomagnesemia/hypophosphatemia. Replete electrolytes as needed. Diabetes type 2. Continue sliding-scale regular insulin and Accu-Cheks. Hyperlipidemia. Continue statin Nutrition continue tube feeds Anemia requiring multiple transfusions/acute blood loss Has received total 13 units of PRBC this admission. Will continue to transfuse to keep Hemoglobin above 7 Hemoglobin 8.9, most recent Her POA is her Brother, Jam [phone] Disposition. Very poor prognosis. Plan is for SNF placement. She was denied by LTAC History Interval history: Patient has prolonged stay Fever of 100.3 yesterday Hospitalist Physical - Physical exam Narrative exam: Gen appearance: Trach, not in acute distress HEENT: Atraumatic Neck: Tracheostomy Lungs: Coarse breath sounds, no crackles or wheezes Heart :S1 and S2 irregular, rapid,no murmurs, rubs or gallop Abdomen: Soft, non tender, nod distended, ostomy bags, bowel sounds present Extremities : bilateral edema, upper and lower ext Neuro: Minimal responsive, opens eyes, Does not follow commands - Constitutional Vitals: Temp Pulse Resp BP Pulse Ox 98.6 F 82 20 167/86 98 11/14/16 04:00 11/14/16 08:00 11/14/16 07:00 11/14/16 08:00 11/14/16 08:00 General appearance: Present: no acute distress, obese, other (on vent, non- responsive) Results - Labs CBC & Chem 7: 11/12/16 04:00 11/13/16 Unknown Labs: Laboratory Last Values WBC 9.1 K/mm3 (4.5-11.0) 11/11/16 06:59 RBC 2.81 M/mm3 (3.65-5.03) L 11/11/16 06:59 Hgb 8.9 gm/dl (10.1-14.3) L 11/12/16 04:00 Hct 27.2 % (30.3-42.9) L 11/12/16 04:00 MCV 87 fl (79-97) 11/11/16 06:59 MCH 29 pg (28-32) 11/11/16 06:59 MCHC 33 % (30-34) 11/11/16 06:59 RDW 16.4 % (13.2-15.2) H 11/11/16 06:59 Plt Count 273 K/mm3 (140-440) 11/11/16 06:59 Lymph % (Auto) 22.6 % (13.4-35.0) 11/11/16 06:59 [place] % (Auto) 10.8 % (0.0-7.3) H 11/11/16 06:59 Eos % (Auto) 0.9 % (0.0-4.3) 11/11/16 06:59 Baso % (Auto) 0.8 % (0.0-1.8) 11/11/16 06:59 Lymph # 2.1 K/mm3 (1.2-5.4) 11/11/16 06:59 [place] # 1.0 K/mm3 (0.0-0.8) H 11/11/16 06:59 Eos # 0.1 K/mm3 (0.0-0.4) 11/11/16 06:59 Baso # 0.1 K/mm3 (0.0-0.1) 11/11/16 06:59 Add Manual Diff Complete 10/27/16 06:30 Total Counted 100 10/27/16 06:30 Seg Neutrophils % 64.9 % (40.0-70.0) 11/11/16 06:59 Seg Neuts % (Manual) 78.0 % (40.0-70.0) H 10/27/16 06:30 Band Neutrophils % 0 % 10/27/16 06:30 Lymphocytes % (Manual) 14.0 % (13.4-35.0) 10/27/16 06:30 Reactive Lymphs % (Man) 0 % 10/27/16 06:30 Monocytes % (Manual) 7.0 % (0.0-7.3) 10/27/16 06:30 Eosinophils % (Manual) 0 % (0.0-4.3) 10/27/16 06:30 Basophils % (Manual) 1.0 % (0.0-1.8) 10/27/16 06:30 Metamyelocytes % 0 % 10/27/16 06:30 Myelocytes % 0 % 10/27/16 06:30 Promyelocytes % 0 % 10/27/16 06:30 Blast Cells % 0 % 10/27/16 06:30 Nucleated RBC % 2.0 % (0.0-0.9) H 10/27/16 06:30 Seg Neutrophils # 5.9 K/mm3 (1.8-7.7) 11/11/16 06:59 Seg Neutrophils # Man 10.8 K/mm3 (1.8-7.7) H 10/27/16 06:30 Band Neutrophils # 0.0 K/mm3 10/27/16 06:30 Lymphocytes # (Manual) 1.9 K/mm3 (1.2-5.4) 10/27/16 06:30 Abs React Lymphs (Man) 0.0 K/mm3 10/27/16 06:30 Monocytes # (Manual) 1.0 K/mm3 (0.0-0.8) H 10/27/16 06:30 Eosinophils # (Manual) 0.0 K/mm3 (0.0-0.4) 10/27/16 06:30 Basophils # (Manual) 0.1 K/mm3 (0.0-0.1) 10/27/16 06:30 Metamyelocytes # 0.0 K/mm3 10/27/16 06:30 Myelocytes # 0.0 K/mm3 10/27/16 06:30 Promyelocytes # 0.0 K/mm3 10/27/16 06:30 Blast Cells # 0.0 K/mm3 10/27/16 06:30 Pathologist Review 09/13/16 04:00 WBC Morphology Not Reportable 10/27/16 06:30 Hypersegmented Neuts Not Reportable 10/27/16 06:30 Hyposegmented Neuts Not Reportable 10/27/16 06:30 Hypogranular Neuts Not Reportable 10/27/16 06:30 Smudge Cells Not Reportable 10/27/16 06:30 Toxic Granulation Not Reportable 10/27/16 06:30 Toxic Vacuolation Not Reportable 10/27/16 06:30 Dohle Bodies Not Reportable 10/27/16 06:30 Pelger-Huet Anomaly Not Reportable 10/27/16 06:30 Jasmina Rods Not Reportable 10/27/16 06:30 Platelet Estimate Cons 10/27/16 06:30 Clumped Platelets Not Reportable 10/27/16 06:30 Plt Clumps, EDTA Not Reportable 10/27/16 06:30 Large Platelets Few 10/27/16 06:30 Giant Platelets Not Reportable 10/27/16 06:30 Platelet Satelliting Not Reportable 10/27/16 06:30 Plt Morphology Comment Not Reportable 10/27/16 06:30 RBC Morphology Not Reportable 10/27/16 06:30 Dimorphic RBCs Not Reportable 10/27/16 06:30 Polychromasia Not Reportable 10/27/16 06:30 Hypochromasia Not Reportable 10/27/16 06:30 Poikilocytosis Not Reportable 10/27/16 06:30 Anisocytosis 1+ 10/27/16 06:30 Microcytosis Not Reportable 10/27/16 06:30 Macrocytosis Not Reportable 10/27/16 06:30 Spherocytes Not Reportable 10/27/16 06:30 Pappenheimer Bodies Not Reportable 10/27/16 06:30 Sickle Cells Not Reportable 10/27/16 06:30 Target Cells Not Reportable 10/27/16 06:30 Tear Drop Cells Not Reportable 10/27/16 06:30 Ovalocytes Not Reportable 10/27/16 06:30 Stomatocytes Few 10/06/16 03:50 Helmet Cells Not Reportable 10/27/16 06:30 Monet-Van Dyne Bodies Not Reportable 10/27/16 06:30 [place] Rings Not Reportable 10/27/16 06:30 Chuck Cells Not Reportable 10/27/16 06:30 Bite Cells Not Reportable 10/27/16 06:30 Crenated Cell Not Reportable 10/27/16 06:30 Elliptocytes Not Reportable 10/27/16 06:30 Acanthocytes (Spur) Not Reportable 10/27/16 06:30 Rouleaux Not Reportable 10/27/16 06:30 Hemoglobin C Crystals Not Reportable 10/27/16 06:30 Schistocytes Not Reportable 10/27/16 06:30 Malaria parasites Not Reportable 10/27/16 06:30 ESR > 140.0 mm/Hr (0-20) 09/08/16 11:48 Jun Bodies Not Reportable 10/27/16 06:30 Hem Pathologist Commnt No 10/27/16 06:30 PT 14.9 Sec. (12.2-14.9) 11/11/16 09:50 INR 1.18 (0.87-1.13) H 11/11/16 09:50 APTT 33.0 Sec. (24.2-36.6) 10/09/16 03:45 Thrombin Time 16.8 Sec. (15.1-19.6) 09/03/16 00:10 Fibrinogen 750 mg/dl (211-480) H 09/08/16 11:48 Lupus Anticoagulant see below 09/12/16 09:59 LA PTT Baseline See scanned report 09/12/16 09:59 dRVVT Confirm Interp Positive (Negative) H 09/12/16 09:59 dRVVT Screen 50:50 See scanned report 09/12/16 09:59 dRVVT Mix Interpret See scanned report 09/12/16 09:59 Protein C Antigen 122 % (70-140) 09/08/16 15:35 Free Protein S 97 % normal (50-147) 09/08/16 15:35 Total Protein S 109 % (70-140) 09/08/16 15:35 Antithrombin III Ag 100 % (80-120) 09/08/16 15:35 Heparin Anti-Xa, Unfract Negative (Negative) 09/29/16 13:35 Factor V Activity 182 % (65-150) H 09/08/16 15:35 POC ABG pH 7.478 (7.35-7.45) H 11/08/16 23:37 POC ABG pCO2 34.0 (35-45) L 11/08/16 23:37 POC ABG pO2 50 (80-105) L 11/08/16 23:37 POC ABG HCO3 25.2 11/08/16 23:37 POC ABG Total CO2 26 11/08/16 23:37 POC ABG O2 Sat 88 11/08/16 23:37 POC ABG Base Excess 2 11/08/16 23:37 FiO2 28 % 11/08/16 23:37 Sodium 135 mmol/L (137-145) L 11/13/16 Unknown Potassium 3.8 mmol/L (3.6-5.0) 11/13/16 Unknown Chloride 95.2 mmol/L (98-107) L 11/13/16 Unknown Carbon Dioxide 22 mmol/L (22-30) 11/13/16 Unknown Anion Gap 22 mmol/L 11/13/16 Unknown BUN 52 mg/dL (7-17) H 11/13/16 Unknown Creatinine 2.2 mg/dL (0.7-1.2) H 11/13/16 Unknown Estimated GFR 29 ml/min 11/13/16 Unknown BUN/Creatinine Ratio 23.63 % 11/13/16 Unknown Glucose 100 mg/dL (65-100) 11/13/16 Unknown POC Glucose 75 (70-105) 11/14/16 05:21 Osmolality 351 Mosm/kg 09/16/16 11:47 Lactic Acid 4.50 mmol/L (0.7-2.0) H* 09/28/16 07:25 Calcium 8.9 mg/dL (8.4-10.2) 11/13/16 Unknown Phosphorus 4.40 mg/dL (2.5-4.5) 11/07/16 06:30 Magnesium 2.20 mg/dL (1.7-2.3) 11/07/16 06:30 Total Bilirubin 0.20 mg/dL (0.1-1.2) 11/06/16 06:25 Direct Bilirubin 0.3 mg/dL (0-0.2) H 10/10/16 05:00 Indirect Bilirubin 0.1 mg/dL 10/10/16 05:00 AST 103 units/L (5-40) H 11/06/16 06:25 ALT 77 units/L (7-56) H 11/06/16 06:25 Alkaline Phosphatase 285 units/L (35-129) H 11/06/16 06:25 Ammonia 27.0 umol/L (25-60) 09/07/16 08:37 Lactate Dehydrogenase 196 units/L (91-180) H 11/11/16 06:59 Total Creatine Kinase 121 units/L (30-135) 09/29/16 20:12 CK-MB (CK-2) < 1.0 ng/mL (0.0-4.0) 09/29/16 20:12 CK-MB (CK-2) Rel Index 0.8 (0-4) 09/29/16 20:12 Troponin T 0.204 ng/mL (0.00-0.029) H* 09/29/16 20:12 C-Reactive Protein 11.40 mg/dL (0.00-1.30) H 11/05/16 13:25 Total Protein 6.1 g/dL (6.3-8.2) L 11/11/16 06:59 Albumin 1.8 g/dL (3.9-5) L 11/06/16 06:25 Albumin/Globulin Ratio 0.4 % 11/06/16 06:25 Prealbumin 0.180 g/L (0.200-0.400) L 11/06/16 06:25 Triglycerides 137 mg/dL (2-149) 09/29/16 20:12 Cholesterol 31 mg/dL (50-199) L 09/29/16 20:12 LDL Cholesterol Direct 4 mg/dL (50-130) L 09/29/16 20:12 HDL Cholesterol 3 mg/dL (40-59) L 09/29/16 20:12 Cholesterol/HDL Ratio 10.33 % 09/29/16 20:12 Angiotensin Convert Enz See scanned report 09/08/16 11:48 Renin 0.99 ng/mL/h (0.25-5.82) 10/07/16 10:56 Aldosterone <1 ng/dL () 10/07/16 10:56 Aldosterone/Renin Dir see below 10/07/16 10:56 Serotonin Release Assay See scanned report 09/29/16 13:35 TSH 1.010 mlU/mL (0.270-4.200) 09/07/16 08:37 HCG, Qual Negative (Negative) 09/03/16 00:10 Urine Color Yellow (Yellow) 11/05/16 13:09 Urine Turbidity Clear (Clear) 11/05/16 13:09 Urine pH 9.0 (5.0-7.0) H 11/05/16 13:09 Ur Specific [place] 1.011 (1.003-1.030) 11/05/16 13:09 Urine Protein 100 mg/dl mg/dL (Negative) 11/05/16 13:09 Urine Glucose (UA) Neg mg/dL (Negative) 11/05/16 13:09 Urine Ketones Neg mg/dL (Negative) 11/05/16 13:09 Urine Blood Neg (Negative) 11/05/16 13:09 Urine Nitrite Neg (Negative) 11/05/16 13:09 Urine Bilirubin Neg (Negative) 11/05/16 13:09 Urine Urobilinogen < 2.0 mg/dL (<2.0) 11/05/16 13:09 Ur Leukocyte Esterase Neg (Negative) 11/05/16 13:09 Urine WBC (Auto) 4.0 /HPF (0.0-6.0) 11/05/16 13:09 Urine RBC (Auto) 1.0 /HPF (0.0-6.0) 11/05/16 13:09 U Epithel Cells (Auto) 1.0 /HPF (0-13.0) 10/07/16 18:30 Urine Bacteria (Auto) 4+ /HPF (Negative) 11/05/16 13:09 Urine WBC Clumps 2+ /HPF 09/07/16 02:47 Hyaline Casts 4 /LPF 09/07/16 02:47 Urine Mucus Few /HPF 10/07/16 18:30 Urine Yeast (Budding) 3+ /HPF 10/07/16 18:30 Urine Eosinophils None seen (None Seen) 09/07/16 16:00 Urine Total Volume 950 11/12/16 10:18 Urine Creatinine 19.7 mg/dL (0.1-20.0) 11/12/16 10:18 Height (in) 65.0 inches 11/12/16 10:18 Weight (lb) 181.0 lbs 11/12/16 10:18 Creatinine Clearance 5 11/12/16 10:18 Urine Sodium 36 mEq/L 09/16/16 19:19 Urine Total Protein 16 mg/dL (5-11.8) H 09/16/16 19:19 Vancomycin Trough 2.3 ug/mL (5.0-20.0) L 09/21/16 13:00 Random Vancomycin 24.7 ug/mL (0-40.0) 11/12/16 04:00 Urine Opiates Screen Presumptive negative 09/03/16 15:11 Urine Methadone Screen Presumptive positive 09/03/16 15:11 Ur Barbiturates Screen Presumptive positive 09/03/16 15:11 Ur Phencyclidine Scrn Presumptive negative 09/03/16 15:11 Ur Amphetamines Screen Presumptive negative 09/03/16 15:11 U Benzodiazepines Scrn Presumptive negative 09/03/16 15:11 Urine Cocaine Screen Presumptive negative 09/03/16 15:11 U Marijuana (THC) Screen Presumptive positive 09/03/16 15:11 Drugs of Abuse Note Disclamer 09/03/16 15:11 Rheumatoid Factor 24 IU/ml (0-13) H 09/08/16 11:48 SAHIL Screen Negative (Negative) 09/07/16 09:20 Proteinase 3 (PR3) Ab <1.0 AI (<1.0) 09/07/16 09:20 Myeloperoxidase Ab <1.0 AI (<1.0) 09/07/16 09:20 Sjogren's Antibody <1.0 AI (<1.0) 09/08/16 15:35 Scl-70 Scleroderma Ab <1.0 AI (<1.0) 09/08/16 15:35 Centromere B Antibody <1.0 AI (<1.0) 09/08/16 12:02 Heparin-induced Plt Ab Negative (Negative) 09/29/16 13:35 UF Heparin High Dose 11 % Release 09/29/16 13:35 SUDHIR UFH Low Dose 0.1 6 % Release 09/29/16 13:35 SUDHIR UFH Low Dose 0.5 8 % Release 09/29/16 13:35 Cardiolipid IgG Ab <14 GPL (<=14) 09/12/16 09:59 Cardiolipid IgA Ab <11 APL (<=11) 09/12/16 09:59 Cardiolipid IgM Ab <12 MPL (<=12) 09/12/16 09:59 Complement C3 148 mg/dL (90-180) 09/07/16 09:20 Complement C4 58 mg/dL (16-47) H 09/07/16 09:20 RPR Nonreactive (Nonreactive) 09/08/16 11:48 Hepatitis A IgM Ab Non-reactive (NonReactive) 09/24/16 14:40 Hep Bs Antigen Non-reactive (Negative) 09/24/16 14:40 Hep B Core IgM Ab Non-reactive (NonReactive) 09/24/16 14:40 Hepatitis C Antibody Non-reactive (NonReactive) 09/24/16 14:40 HIV 1&2 Antibody Rapid Non react (Non React) 09/08/16 11:48 HIV P24 Antigen Non react (Non React) 09/08/16 11:48 Miscellaneous Test Flexitest 1 H 11/05/16 13:25 Blood Type A POSITIVE 11/07/16 09:37 Antibody Screen Negative 11/07/16 09:37 DELORIS Antibody Screen Negative 09/25/16 10:30 Crossmatch See Detail 11/07/16 09:37
[2016-11-14] MEDS: QUESTRAN PO SCH (09:14)
[2016-11-14] MEDS: COZAAR PO SCH (09:14)
[2016-11-14] MEDS: PROTONIX FEEDTUBE SCH (09:14)
[2016-11-14] MEDS ORDERED: ALBURX 25% (ALBUMIN) IV PRN (10:04)
[2016-11-14] MEDS ORDERED: HEPARIN 10,000 UNITS/10 ML IV PRN (10:04)
[2016-11-14] MEDS ORDERED: HEPARIN IV PRN (10:04)
[2016-11-14] MEDS ORDERED: PROCRIT IV PRN (10:04)
[2016-11-14] MEDS ORDERED: NACL 0.9% 100 ML IV PRN (10:04)
--- NOTE | 2016-11-14 10:07 | Progress Note ---
Assessment and Plan Assessment * Oliguric acute kidney injury secondary to ATN on CKD - baseline SCr 1.7mg/dL --24H urine CrCl 15ml/min on Sep 21 --24h urine CrCl 5ml/min Nov 13 * Sepsis * s/p Candidemia * s/p GI bleed * Acute CVA - left MCA with midline shift * Acute hypoxic respiratory failure * Left renal artery stenosis * Metabolic acidosis - improved * Anemia * Hyponatremia - multifactorial Plan: * Resume HD MWF * Abx/antifungal per ID * Vent management per critical care * Dose medications for renal function * Avoid potential nephrotoxins * Pressors prn MAP>65 Subjective Date of service: 11/14/16 Principal diagnosis: Acute resp failure on MVS; S/P Acute CVA; Acute Encephalopathy; JUANITA Interval history: No acute events overnight. Low grade fever 100.3 yesterday. Objective - Vital Signs Vital signs: Vital Signs - 12hr 11/13/16 11/13/16 11/13/16 22:04 22:31 22:51 Temperature Pulse Rate 79 89 Pulse Rate [ From Monitor] Respiratory 20 16 Rate Blood Pressure 128/71 128/71 O2 Sat by Pulse 99 100 Oximetry O2 Sat by Pulse Oximetry [ Assessment] 11/13/16 11/13/16 11/13/16 23:00 23:05 23:31 Temperature Pulse Rate 90 91 H 93 H Pulse Rate [ From Monitor] Respiratory 18 16 18 Rate Blood Pressure 154/79 154/79 154/79 O2 Sat by Pulse 100 100 100 Oximetry O2 Sat by Pulse Oximetry [ Assessment] 11/14/16 11/14/16 11/14/16 00:00 00:11 00:31 Temperature 98.8 F Pulse Rate 92 H 93 H 83 Pulse Rate [ 92 H From Monitor] Respiratory 18 18 Rate Blood Pressure 162/85 162/85 162/85 O2 Sat by Pulse 100 100 Oximetry O2 Sat by Pulse Oximetry [ Assessment] 11/14/16 11/14/16 11/14/16 01:01 01:31 02:00 Temperature Pulse Rate 80 83 97 H Pulse Rate [ From Monitor] Respiratory 14 16 19 Rate Blood Pressure 104/49 162/85 104/49 O2 Sat by Pulse 100 100 100 Oximetry O2 Sat by Pulse Oximetry [ Assessment] 11/14/16 11/14/16 11/14/16 02:31 02:59 03:00 Temperature Pulse Rate 106 H 95 H 96 H Pulse Rate [ From Monitor] Respiratory 20 Rate Blood Pressure 183/97 190/91 183/100 O2 Sat by Pulse 100 100 Oximetry O2 Sat by Pulse Oximetry [ Assessment] 11/14/16 11/14/16 11/14/16 03:31 04:00 04:31 Temperature 98.6 F Pulse Rate 85 84 82 Pulse Rate [ 84 From Monitor] Respiratory 17 18 14 Rate Blood Pressure 183/100 183/100 187/95 O2 Sat by Pulse 100 100 100 Oximetry O2 Sat by Pulse Oximetry [ Assessment] 11/14/16 11/14/16 11/14/16 05:00 05:27 05:31 Temperature Pulse Rate 78 83 Pulse Rate [ From Monitor] Respiratory 13 15 Rate Blood Pressure 187/95 122/67 O2 Sat by Pulse 100 100 Oximetry O2 Sat by Pulse 84 Oximetry [ Assessment] 11/14/16 11/14/16 11/14/16 06:00 06:27 06:29 Temperature Pulse Rate 84 83 Pulse Rate [ From Monitor] Respiratory 15 13 Rate Blood Pressure 185/97 185/97 O2 Sat by Pulse 100 Oximetry O2 Sat by Pulse Oximetry [ Assessment] 11/14/16 11/14/16 11/14/16 07:00 07:45 08:00 Temperature 98.4 F Pulse Rate 88 82 Pulse Rate [ From Monitor] Respiratory 20 Rate Blood Pressure 122/76 167/86 O2 Sat by Pulse 100 100 98 Oximetry O2 Sat by Pulse Oximetry [ Assessment] 11/14/16 09:14 Temperature Pulse Rate 75 Pulse Rate [ From Monitor] Respiratory Rate Blood Pressure 95/48 O2 Sat by Pulse Oximetry O2 Sat by Pulse Oximetry [ Assessment] - General Appearance General appearance: well-developed, intubated (trach) EENT: ATNC, other (trach in place) Respiratory: Present: Other (coarse BS bilaterally) Cardiology: regular, S1S2 Gastrointestinal: obese Neurologic: other (eyes are open; nonresponsive) Musculoskeletal: other (trace edema) Psychiatric: cooperative - Lab 11/12/16 04:00 11/13/16 Unknown Most recent lab results Calcium 8.9 mg/dL (8.4-10.2) 11/13/16 Unknown Phosphorus 4.40 mg/dL (2.5-4.5) 11/07/16 06:30 Magnesium 2.20 mg/dL (1.7-2.3) 11/07/16 06:30 Urine Creatinine 19.7 mg/dL (0.1-20.0) 11/12/16 10:18 Urine Sodium 36 mEq/L 09/16/16 19:19 Urine Total Protein 16 mg/dL (5-11.8) H 09/16/16 19:19
--- NOTE | 2016-11-14 10:45 | Progress Note ---
Assessment and Plan Assessment: 1) Recurrent Sepsis: new episode ? resolved -S/p multiple episodes of sepsis - initially due to presumed aspiration pneumonia, then septic episode on 09/23 from Candidemia. Then from - peritonitis from gastric perforation +/- UTI. Latest episode was due to abdominal wall abscess at surgical site. -CRP 19 --> 22 -->11 -Procalcitonin=24 --> 16 --> 4.3 --> 1.8 on 10/05 -Vascath tip + Coag neg Staph, GNR - removed -repeat CT no abscess. Reviewed CT with radiologist NO fistula bue a 2x2cm abdominal wall collection. Same area previously grew Pseudomonas MDR sens to cefepime -recent respiratory specimen + MDR Pseudomonas-likely a colonizer -Urine grew VRE with negative UA-likely a colonizer 2) History of Peritonitis: from gastric perforation from dislodged PEG with significant ascites -S/P exlap, repair of gastric perforation with wedge gastrectomy, abdominal washout, drain placement on 10/05. 3) History of Candidemia: -Blood cultures positive for Silvia albicans on 09/23 -Blood cultures positive on 09/25 -Blood cultures negative on 09/30 -PICC line changed on 10/03 -Source ? gastric perf (PEG placed on 09/20) +/- TPN +/- central lines -TTE 10/07 no vegetations -PICC exchanged on 10/03 -fully treated with micafungin for 14 days last day 10/13 4) History CA-UTI s/p gutierrez exchanged 5) Diarrhea - ? etiology ? antibiotic-induced, not better 6) Initial presumed aspiration pneumonia 7) Respiratory failure s/p trach 8) Recent CVA-left MCA CVA 9) Uncontrolled HTN 10) Acute on CKD 11) Extensive back skin peeling ? burn from gastric secretions. Doubt allergic reaction - resolved 12) Severe anemia; ? from GI bleed 13) Recent abdominal wall abscess at surgical site-treated Plan: -monitor fever off antibiotics -overall prognosis guarded, patient at high risk for nosocomial infections Thank you Dr Ribeiro for your consultation, will follow up with you. Pauline Carias MD Infectious Diseases Specialist [facility] ([facility] M [phone] O [phone] Subjective Date of service: 11/14/16 Principal diagnosis: Acute resp failure on MVS; S/P Acute CVA; Acute Encephalopathy; JUANITA Interval history: Interval history: No fever, non verbal Microbiology: Blood cultures: 09/13 neg 8/ Silvia albicans 09/25 Silvia 09/29 neg 10/07 neg 11/05 neg 11/07 ngtd Urine cultures: 09/10 neg 09/13 neg 8/4 10-100K mixed species 10/07 neg 11/05 VRE 11/07 mixed bacteria Respiratory cultures: 09/07 neg 09/13 neg 09/23 neg 11/07 MDR Pseudomonas Wound cultures: 10/17 abd wall wound purulence + Pseudomonas MDR Stool cultures: cath tip 11/07 + [employer] Current Antimicrobials: none Previous Antimicrobials: Zosyn 10/07 Vancomycin PO 10/01 Metronidazole 09/25 Micafungin 09/27-10/13 Meropenem 10/10 Vanco 10/17 zosyn 10/21 Cefepime 11/10 vancomyin 11/07 fluconazole 10/19 cefepime 10/29levaquin 11/05 Objective - Exam Narrative Exam: General appearance: alert, non communicative, on the vent via trach no following commands Eyes: anicteric sclera, moist conjunctivae; PERRLA HENT: Atraumatic; oropharynx limited; Normal external ears. +NGT with greenish secretion Neck: +trach in place; supple, no thyromegaly or lymphadenopathy Lungs: CTA CV: tachycardic Abdomen: Soft, non-tender, +old PEG site no drainage. +iliostomy. Right sided Surgical site x 2 with ostomy bag draining minimal yellowish secretion Extremities: +peripheral edema no extremity lymphadenopathy Skin: sacral area wounds superficial no purulence Psych: somnolent . Neuro: alert non verbal on the vent. Lines: left arm PICC placed on 10/03 - Constitutional Vitals: Vital Signs Temp Pulse Resp BP Pulse Ox 98.4 F 86 15 189/90 100 11/14/16 08:00 11/14/16 10:11/14/16 10:00 11/14/16 10:11/14/16 10:00 Temperature -Last 24 Hours Temperature 98.4 F Temperature 98.6 F Temperature 98.8 F Temperature 98.9 F Temperature 98.1 F Temperature 97.9 F - Labs CBC & Chem 7: 11/12/16 04:00 11/13/16 Unknown Labs: Abnormal lab results 11/13/16 11/13/16 11/13/16 Range/Units 11:43 17:09 23:41 POC Glucose 114 H 113 H 108 H (70-105)
--- NOTE | 2016-11-14 11:14 | Progress Note ---
Assessment and Plan (1) Acute respiratory failure with hypoxia Current Visit: Yes Status: Acute Plan to address problem: - continue aspiration precautions - continue to wean oxygen for MAP > 94% - continue bronchodilators and pulmonary toilet - s/p tracheostomy - continue scopolamine - ABG's prn at this point for increased work of breathing or other resp distress - will send for right thoracentesis re: moderate effusion with the hope that it aids RTC t-piece tolerance - follow thoracentesis studies (to be done today) - continue t-piece trials and shoot for RTC if tolerates especially post thoracentesis (2) Acute CVA (cerebrovascular accident) Current Visit: Yes Status: Acute Plan to address problem: - Left MCA teritory stroke - seen by neurology and prognosis for recovery of mental status guarded to poor - optimizing secondary prevention modalities now (BP, lipid anti-platelet therapy) - off systemic steroids now (started earlier for edema) - clinically mild improvement (3) Hypertensive emergency Current Visit: Yes Status: Acute Plan to address problem: - continue antihypertensives (on metoprolol, clonidine and cozaar) - use prn hydralazine - resume sedation while on MVS (4) Obesity (BMI 35.0-39.9 without comorbidity) Current Visit: Yes Status: Chronic Plan to address problem: - now at goal rate on tube feeding - stopped TPN (5) Type 2 diabetes mellitus Current Visit: Yes Status: Chronic Qualifiers: Diabetes mellitus complication status: D Diabetes mellitus complication detail: D Diabetic retinopathy severity: D Proliferative retinopathy type: P Diabetes mellitus macular edema: D Diabetes mellitus nursing home insulin use : D Laterality: L Chronic kidney disease stage: C Plan to address problem: - continue SSI - discontinued lantus prior re: hypoglycemia - target BG's <180 mg/dl (6) Leukocytosis (leucocytosis) Current Visit: Yes Status: Acute Qualifiers: Leukocytosis type: leukemoid reaction Qualified Code(s): D72.823 - Leukemoid reaction Plan to address problem: - improving - see sepsis section below (7) Agitation Current Visit: Yes Status: Acute Plan to address problem: - prn sedation / analgesia - tapered off seroquel for now (8) Atrial fibrillation Current Visit: Yes Status: Acute Qualifiers: Atrial fibrillation type: A Plan to address problem: - off amiodarone - continue p.o. metoprolol scheduled at 50mg q6h and adjust as necessary (9) JUANITA (acute kidney injury) Current Visit: Yes Status: Acute Plan to address problem: - on Dialysis now - continue HD/UF per nephrology recommendations - s/p tunnelled vas-cath - HD/UF -- (10) Pyrexia of unknown origin Current Visit: Yes Status: Acute Plan to address problem: - dopplers negative for DVT - continue to treat with Anti-infectives (11) Severe sepsis Current Visit: Yes Status: Acute Plan to address problem: - resume vasopressors for MAP < 60mmHg not responsive to volume - continue anti-infectives per ID recs - VRE in urine noted; ? colonizer at this point - continue contact precautions - PSAR noted on trach aspirate from 11/07/16 (? Colonizer) - catheter tip however with >15CFU GNR growing now and may well be same organism (await ID- if that's the case however she is on appropriate AB's therapy) (12) Emesis Current Visit: Yes Status: Acute Qualifiers: Vomiting type: V Vomiting Intractability: V Nausea presence: N Plan to address problem: - s/p surgical repair of gastric perforation - continue TPN for now - follow surgery recommendations re: feeding and new PEG tube - now tolerating tube feeds at goal rate (13) Dysphagia, oropharyngeal Current Visit: Yes Status: Acute Plan to address problem: - discussed with surgeon and she will be best served with continued treatment with anti-infectives as well as time for the GI tract and her wounds to heal before replacing the PEG tube - continue DHT feeding (14) Discharge planning issues Current Visit: Yes Status: Acute Plan to address problem: - she remains critically ill on life sustaining interventions including MVS and at risk for further acute deterioration including - if can stay off MVS then can transfer to medical floor shortly .....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 Subjective Date of service: 11/14/16 Principal diagnosis: Acute resp failure on MVS; S/P Acute CVA; Acute Encephalopathy; JUANITA Interval history: Seen and examined at bedside; 24 hour events reviewed; nursing and respiratory care staff consulted; no adverse overnight events reported to me; to IR for thoracentesis today; no emesis or overt aspiration; t-piece trials on hold for procedure Objective Vital Signs - 12hr 11/13/16 11/14/16 11/14/16 23:31 00:00 00:11 Temperature 98.8 F Pulse Rate 93 H 92 H 93 H Pulse Rate [ 92 H From Monitor] Respiratory 18 18 Rate Blood Pressure 154/79 162/85 162/85 O2 Sat by Pulse 100 100 Oximetry O2 Sat by Pulse Oximetry [ Assessment] 11/14/16 11/14/16 11/14/16 00:31 01:01 01:31 Temperature Pulse Rate 83 80 83 Pulse Rate [ From Monitor] Respiratory 18 14 16 Rate Blood Pressure 162/85 104/49 162/85 O2 Sat by Pulse 100 100 100 Oximetry O2 Sat by Pulse Oximetry [ Assessment] 11/14/16 11/14/16 11/14/16 02:00 02:31 02:59 Temperature Pulse Rate 97 H 106 H 95 H Pulse Rate [ From Monitor] Respiratory 19 Rate Blood Pressure 104/49 183/97 190/91 O2 Sat by Pulse 100 100 Oximetry O2 Sat by Pulse Oximetry [ Assessment] 11/14/16 11/14/16 11/14/16 03:00 03:31 04:00 Temperature 98.6 F Pulse Rate 96 H 85 84 Pulse Rate [ 84 From Monitor] Respiratory 20 17 18 Rate Blood Pressure 183/100 183/100 183/100 O2 Sat by Pulse 100 100 100 Oximetry O2 Sat by Pulse Oximetry [ Assessment] 11/14/16 11/14/16 11/14/16 04:31 05:00 05:27 Temperature Pulse Rate 82 78 Pulse Rate [ From Monitor] Respiratory 14 13 Rate Blood Pressure 187/95 187/95 O2 Sat by Pulse 100 100 Oximetry O2 Sat by Pulse 84 Oximetry [ Assessment] 11/14/16 11/14/16 11/14/16 05:31 06:00 06:27 Temperature Pulse Rate 83 84 83 Pulse Rate [ From Monitor] Respiratory 15 15 Rate Blood Pressure 122/67 185/97 185/97 O2 Sat by Pulse 100 100 Oximetry O2 Sat by Pulse Oximetry [ Assessment] 11/14/16 11/14/16 11/14/16 06:29 07:00 07:45 Temperature Pulse Rate 88 Pulse Rate [ From Monitor] Respiratory 13 20 Rate Blood Pressure 122/76 O2 Sat by Pulse 100 100 Oximetry O2 Sat by Pulse Oximetry [ Assessment] 11/14/16 11/14/16 11/14/16 08:00 09:00 09:14 Temperature 98.4 F Pulse Rate 88 75 75 Pulse Rate [ From Monitor] Respiratory 15 13 Rate Blood Pressure 167/86 95/48 95/48 O2 Sat by Pulse 100 100 Oximetry O2 Sat by Pulse Oximetry [ Assessment] 11/14/16 10:00 Temperature Pulse Rate 86 Pulse Rate [ From Monitor] Respiratory 15 Rate Blood Pressure 189/90 O2 Sat by Pulse 100 Oximetry O2 Sat by Pulse Oximetry [ Assessment] Constitutional: no acute distress, other (eyes open; tracking movements) Eyes: non-icteric, other (tracheostomy tube in midline of neck) ENT: oropharynx moist Neck: supple, no lymphadenopathy Effort: mildly labored Ascultation: Bilateral: diminished breath sounds (bases), rales Cardiovascular: regular rate and rhythm Gastrointestinal: hypoactive bowel sounds, soft, non-tender, non-distended, other (RLQ stomas with colostomy bags) Integumentary: other (healing back burn-like injury) Extremities: no cyanosis, no edema, pulses normal, no ischemia or petechiae Neurologic: pupils equal and round, other (sedated) Psychiatric: other (unable to assess) CBC and BMP: 11/15/16 03:30 11/15/16 03:30 ABG, PT/INR, D-dimer: ABG POC ABG pH 7.478 (7.35-7.45) H 11/08/16 23:37 POC ABG pCO2 34.0 (35-45) L 11/08/16 23:37 POC ABG pO2 50 (80-105) L 11/08/16 23:37 POC ABG HCO3 25.2 11/08/16 23:37 POC ABG Total CO2 26 11/08/16 23:37 POC ABG O2 Sat 88 11/08/16 23:37 PT/INR, D-dimer PT 14.9 Sec. (12.2-14.9) 11/11/16 09:50 INR 1.18 (0.87-1.13) H 11/11/16 09:50 Abnormal lab findings: Abnormal Labs 09/03/16 09/03/16 09/03/16 12:12 15:07 16:20 WBC RBC Hgb Hct MCV MCH MCHC RDW Plt Count Lymph % (Auto) [place] % (Auto) Lymph # [place] # Baso # Seg Neutrophils % Seg Neuts % (Manual) Lymphocytes % (Manual) Monocytes % (Manual) Eosinophils % (Manual) Basophils % (Manual) Nucleated RBC % Seg Neutrophils # Seg Neutrophils # Man Lymphocytes # (Manual) Monocytes # (Manual) Eosinophils # (Manual) PT INR Fibrinogen dRVVT Confirm Interp Factor V Activity POC ABG pH 7.452 H POC ABG pCO2 POC ABG pO2 Sodium Potassium Chloride Carbon Dioxide BUN Creatinine Glucose POC Glucose 178 H Lactic Acid Calcium Phosphorus 2.20 L Magnesium 1.60 L Direct Bilirubin AST ALT Alkaline Phosphatase Lactate Dehydrogenase Troponin T C-Reactive Protein Total Protein Albumin Prealbumin Triglycerides Cholesterol LDL Cholesterol Direct HDL Cholesterol Urine pH Urine WBC (Auto) Urine Creatinine Urine Total Protein Vancomycin Trough Rheumatoid Factor Complement C4 Miscellaneous Test Crossmatch 09/03/16 09/03/16 09/03/16 17:57 17:58 23:50 WBC RBC Hgb Hct MCV MCH MCHC RDW Plt Count Lymph % (Auto) [place] % (Auto) Lymph # [place] # Baso # Seg Neutrophils % Seg Neuts % (Manual) Lymphocytes % (Manual) Monocytes % (Manual) Eosinophils % (Manual) Basophils % (Manual) Nucleated RBC % Seg Neutrophils # Seg Neutrophils # Man Lymphocytes # (Manual) Monocytes # (Manual) Eosinophils # (Manual) PT INR Fibrinogen dRVVT Confirm Interp Factor V Activity POC ABG pH POC ABG pCO2 POC ABG pO2 Sodium Potassium Chloride Carbon Dioxide BUN Creatinine Glucose POC Glucose 162 H 145 H Lactic Acid Calcium Phosphorus 2.30 L Magnesium Direct Bilirubin AST ALT Alkaline Phosphatase Lactate Dehydrogenase Troponin T C-Reactive Protein Total Protein Albumin Prealbumin Triglycerides Cholesterol LDL Cholesterol Direct HDL Cholesterol Urine pH Urine WBC (Auto) Urine Creatinine Urine Total Protein Vancomycin Trough Rheumatoid Factor Complement C4 Miscellaneous Test Crossmatch 09/04/16 09/04/16 09/04/16 03:31 03:31 05:42 WBC RBC Hgb 9.7 L D Hct MCV 72 L MCH 23 L MCHC RDW 17.5 H Plt Count Lymph % (Auto) 11.1 L [place] % (Auto) Lymph # [place] # Baso # Seg Neutrophils % 84.3 H Seg Neuts % (Manual) Lymphocytes % (Manual) Monocytes % (Manual) Eosinophils % (Manual) Basophils % (Manual) Nucleated RBC % Seg Neutrophils # 8.9 H Seg Neutrophils # Man Lymphocytes # (Manual) Monocytes # (Manual) Eosinophils # (Manual) PT INR Fibrinogen dRVVT Confirm Interp Factor V Activity POC ABG pH POC ABG pCO2 POC ABG pO2 Sodium 135 L Potassium 2.9 L* Chloride 97.2 L Carbon Dioxide 19 L BUN Creatinine 1.7 H Glucose 170 H POC Glucose 152 H Lactic Acid Calcium Phosphorus Magnesium Direct Bilirubin AST ALT Alkaline Phosphatase Lactate Dehydrogenase Troponin T C-Reactive Protein Total Protein Albumin Prealbumin Triglycerides 160 H Cholesterol LDL Cholesterol Direct HDL Cholesterol 31 L Urine pH Urine WBC (Auto) Urine Creatinine Urine Total Protein Vancomycin Trough Rheumatoid Factor Complement C4 Miscellaneous Test Crossmatch 09/04/16 09/04/16 09/04/16 11:34 17:46 23:29 WBC RBC Hgb Hct MCV MCH MCHC RDW Plt Count Lymph % (Auto) [place] % (Auto) Lymph # [place] # Baso # Seg Neutrophils % Seg Neuts % (Manual) Lymphocytes % (Manual) Monocytes % (Manual) Eosinophils % (Manual) Basophils % (Manual) Nucleated RBC % Seg Neutrophils # Seg Neutrophils # Man Lymphocytes # (Manual) Monocytes # (Manual) Eosinophils # (Manual) PT INR Fibrinogen dRVVT Confirm Interp Factor V Activity POC ABG pH POC ABG pCO2 POC ABG pO2 Sodium Potassium Chloride Carbon Dioxide BUN Creatinine Glucose POC Glucose 165 H 210 H 139 H Lactic Acid Calcium Phosphorus Magnesium Direct Bilirubin AST ALT Alkaline Phosphatase Lactate Dehydrogenase Troponin T C-Reactive Protein Total Protein Albumin Prealbumin Triglycerides Cholesterol LDL Cholesterol Direct HDL Cholesterol Urine pH Urine WBC (Auto) Urine Creatinine Urine Total Protein Vancomycin Trough Rheumatoid Factor Complement C4 Miscellaneous Test Crossmatch 09/05/16 09/05/16 09/05/16 04:05 04:05 05:38 WBC RBC Hgb Hct MCV 76 L D MCH 23 L MCHC RDW 17.8 H Plt Count Lymph % (Auto) [place] % (Auto) Lymph # [place] # Baso # Seg Neutrophils % Seg Neuts % (Manual) Lymphocytes % (Manual) Monocytes % (Manual) Eosinophils % (Manual) Basophils % (Manual) Nucleated RBC % Seg Neutrophils # Seg Neutrophils # Man Lymphocytes # (Manual) Monocytes # (Manual) Eosinophils # (Manual) PT INR Fibrinogen dRVVT Confirm Interp Factor V Activity POC ABG pH POC ABG pCO2 POC ABG pO2 Sodium 134 L Potassium Chloride Carbon Dioxide 18 L BUN Creatinine 1.8 H Glucose 192 H POC Glucose 175 H Lactic Acid Calcium Phosphorus Magnesium Direct Bilirubin AST ALT Alkaline Phosphatase Lactate Dehydrogenase Troponin T C-Reactive Protein Total Protein Albumin Prealbumin Triglycerides Cholesterol LDL Cholesterol Direct HDL Cholesterol Urine pH Urine WBC (Auto) Urine Creatinine Urine Total Protein Vancomycin Trough Rheumatoid Factor Complement C4 Miscellaneous Test Crossmatch 09/05/16 09/05/16 09/05/16 11:38 17:48 23:22 WBC RBC Hgb Hct MCV MCH MCHC RDW Plt Count Lymph % (Auto) [place] % (Auto) Lymph # [place] # Baso # Seg Neutrophils % Seg Neuts % (Manual) Lymphocytes % (Manual) Monocytes % (Manual) Eosinophils % (Manual) Basophils % (Manual) Nucleated RBC % Seg Neutrophils # Seg Neutrophils # Man Lymphocytes # (Manual) Monocytes # (Manual) Eosinophils # (Manual) PT INR Fibrinogen dRVVT Confirm Interp Factor V Activity POC ABG pH POC ABG pCO2 POC ABG pO2 Sodium Potassium Chloride Carbon Dioxide BUN Creatinine Glucose POC Glucose 164 H 186 H 195 H Lactic Acid Calcium Phosphorus Magnesium Direct Bilirubin AST ALT Alkaline Phosphatase Lactate Dehydrogenase Troponin T C-Reactive Protein Total Protein Albumin Prealbumin Triglycerides Cholesterol LDL Cholesterol Direct HDL Cholesterol Urine pH Urine WBC (Auto) Urine Creatinine Urine Total Protein Vancomycin Trough Rheumatoid Factor Complement C4 Miscellaneous Test Crossmatch 09/06/16 09/06/16 09/06/16 04:12 05:59 07:32 WBC RBC Hgb Hct MCV MCH MCHC RDW Plt Count Lymph % (Auto) [place] % (Auto) Lymph # [place] # Baso # Seg Neutrophils % Seg Neuts % (Manual) Lymphocytes % (Manual) Monocytes % (Manual) Eosinophils % (Manual) Basophils % (Manual) Nucleated RBC % Seg Neutrophils # Seg Neutrophils # Man Lymphocytes # (Manual) Monocytes # (Manual) Eosinophils # (Manual) PT INR Fibrinogen dRVVT Confirm Interp Factor V Activity POC ABG pH 7.514 H POC ABG pCO2 29.1 L POC ABG pO2 72 L Sodium 133 L Potassium 3.4 L Chloride 94.9 L Carbon Dioxide 19 L BUN 30 H Creatinine 2.1 H Glucose 139 H POC Glucose 146 H Lactic Acid Calcium Phosphorus Magnesium Direct Bilirubin AST ALT Alkaline Phosphatase Lactate Dehydrogenase Troponin T C-Reactive Protein Total Protein Albumin Prealbumin Triglycerides Cholesterol LDL Cholesterol Direct HDL Cholesterol Urine pH Urine WBC (Auto) Urine Creatinine Urine Total Protein Vancomycin Trough Rheumatoid Factor Complement C4 Miscellaneous Test Crossmatch 09/06/16 09/06/16 09/06/16 11:57 17:58 19:02 WBC RBC Hgb Hct MCV MCH MCHC RDW Plt Count Lymph % (Auto) [place] % (Auto) Lymph # [place] # Baso # Seg Neutrophils % Seg Neuts % (Manual) Lymphocytes % (Manual) Monocytes % (Manual) Eosinophils % (Manual) Basophils % (Manual) Nucleated RBC % Seg Neutrophils # Seg Neutrophils # Man Lymphocytes # (Manual) Monocytes # (Manual) Eosinophils # (Manual) PT INR Fibrinogen dRVVT Confirm Interp Factor V Activity POC ABG pH 7.465 H POC ABG pCO2 32.0 L POC ABG pO2 Sodium Potassium Chloride Carbon Dioxide BUN Creatinine Glucose POC Glucose 165 H 160 H Lactic Acid Calcium Phosphorus Magnesium Direct Bilirubin AST ALT Alkaline Phosphatase Lactate Dehydrogenase Troponin T C-Reactive Protein Total Protein Albumin Prealbumin Triglycerides Cholesterol LDL Cholesterol Direct HDL Cholesterol Urine pH Urine WBC (Auto) Urine Creatinine Urine Total Protein Vancomycin Trough Rheumatoid Factor Complement C4 Miscellaneous Test Crossmatch 09/06/16 09/07/16 09/07/16 23:45 02:47 02:47 WBC RBC Hgb Hct MCV MCH MCHC RDW Plt Count Lymph % (Auto) [place] % (Auto) Lymph # [place] # Baso # Seg Neutrophils % Seg Neuts % (Manual) Lymphocytes % (Manual) Monocytes % (Manual) Eosinophils % (Manual) Basophils % (Manual) Nucleated RBC % Seg Neutrophils # Seg Neutrophils # Man Lymphocytes # (Manual) Monocytes # (Manual) Eosinophils # (Manual) PT INR Fibrinogen dRVVT Confirm Interp Factor V Activity POC ABG pH POC ABG pCO2 POC ABG pO2 Sodium Potassium Chloride Carbon Dioxide BUN Creatinine Glucose POC Glucose 204 H Lactic Acid Calcium Phosphorus Magnesium Direct Bilirubin AST ALT Alkaline Phosphatase Lactate Dehydrogenase Troponin T C-Reactive Protein Total Protein Albumin Prealbumin Triglycerides Cholesterol LDL Cholesterol Direct HDL Cholesterol Urine pH Urine WBC (Auto) 68.0 H Urine Creatinine 106.1 H Urine Total Protein Vancomycin Trough Rheumatoid Factor Complement C4 Miscellaneous Test Crossmatch 09/07/16 09/07/16 09/07/16 04:50 06:19 06:39 WBC RBC Hgb Hct MCV MCH MCHC RDW Plt Count Lymph % (Auto) [place] % (Auto) Lymph # [place] # Baso # Seg Neutrophils % Seg Neuts % (Manual) Lymphocytes % (Manual) Monocytes % (Manual) Eosinophils % (Manual) Basophils % (Manual) Nucleated RBC % Seg Neutrophils # Seg Neutrophils # Man Lymphocytes # (Manual) Monocytes # (Manual) Eosinophils # (Manual) PT INR Fibrinogen dRVVT Confirm Interp Factor V Activity POC ABG pH 7.457 H POC ABG pCO2 32.1 L POC ABG pO2 76 L Sodium 132 L Potassium Chloride 94.7 L Carbon Dioxide BUN 53 H Creatinine 2.9 H Glucose 151 H POC Glucose 149 H Lactic Acid Calcium Phosphorus Magnesium Direct Bilirubin AST ALT Alkaline Phosphatase Lactate Dehydrogenase Troponin T C-Reactive Protein Total Protein Albumin Prealbumin Triglycerides Cholesterol LDL Cholesterol Direct HDL Cholesterol Urine pH Urine WBC (Auto) Urine Creatinine Urine Total Protein Vancomycin Trough Rheumatoid Factor Complement C4 Miscellaneous Test Crossmatch 09/07/16 09/07/16 09/07/16 09:20 11:43 11:43 WBC 19.4 H RBC Hgb 8.3 L Hct 26.4 L D MCV 72 L D MCH 22 L MCHC RDW 17.9 H Plt Count Lymph % (Auto) 8.5 L [place] % (Auto) Lymph # [place] # 1.0 H Baso # Seg Neutrophils % 85.8 H Seg Neuts % (Manual) Lymphocytes % (Manual) Monocytes % (Manual) Eosinophils % (Manual) Basophils % (Manual) Nucleated RBC % Seg Neutrophils # 16.6 H Seg Neutrophils # Man Lymphocytes # (Manual) Monocytes # (Manual) Eosinophils # (Manual) PT INR Fibrinogen dRVVT Confirm Interp Factor V Activity POC ABG pH POC ABG pCO2 POC ABG pO2 Sodium 134 L Potassium Chloride 97.2 L Carbon Dioxide 20 L BUN 58 H Creatinine 2.9 H Glucose 147 H POC Glucose Lactic Acid Calcium Phosphorus 2.40 L Magnesium 2.40 H Direct Bilirubin AST ALT Alkaline Phosphatase Lactate Dehydrogenase Troponin T C-Reactive Protein Total Protein 5.8 L Albumin 2.2 L Prealbumin Triglycerides Cholesterol LDL Cholesterol Direct HDL Cholesterol Urine pH Urine WBC (Auto) Urine Creatinine Urine Total Protein Vancomycin Trough Rheumatoid Factor Complement C4 58 H Miscellaneous Test Crossmatch 09/07/16 09/07/16 09/07/16 11:50 16:00 17:31 WBC RBC Hgb Hct MCV MCH MCHC RDW Plt Count Lymph % (Auto) [place] % (Auto) Lymph # [place] # Baso # Seg Neutrophils % Seg Neuts % (Manual) Lymphocytes % (Manual) Monocytes % (Manual) Eosinophils % (Manual) Basophils % (Manual) Nucleated RBC % Seg Neutrophils # Seg Neutrophils # Man Lymphocytes # (Manual) Monocytes # (Manual) Eosinophils # (Manual) PT INR Fibrinogen dRVVT Confirm Interp Factor V Activity POC ABG pH POC ABG pCO2 POC ABG pO2 158 H Sodium Potassium Chloride Carbon Dioxide BUN Creatinine Glucose POC Glucose 175 H Lactic Acid Calcium Phosphorus Magnesium Direct Bilirubin AST ALT Alkaline Phosphatase Lactate Dehydrogenase Troponin T C-Reactive Protein Total Protein Albumin Prealbumin Triglycerides Cholesterol LDL Cholesterol Direct HDL Cholesterol Urine pH Urine WBC (Auto) Urine Creatinine 66.3 H Urine Total Protein Vancomycin Trough Rheumatoid Factor Complement C4 Miscellaneous Test Crossmatch 09/07/16 09/08/16 09/08/16 23:50 05:46 06:18 WBC 17.8 H RBC 3.58 L Hgb 8.1 L Hct 25.5 L MCV 71 L MCH 23 L MCHC RDW 18.4 H Plt Count Lymph % (Auto) [place] % (Auto) Lymph # [place] # Baso # Seg Neutrophils % Seg Neuts % (Manual) 92.0 H Lymphocytes % (Manual) 6.0 L Monocytes % (Manual) Eosinophils % (Manual) Basophils % (Manual) Nucleated RBC % Seg Neutrophils # Seg Neutrophils # Man 16.4 H Lymphocytes # (Manual) 1.1 L Monocytes # (Manual) Eosinophils # (Manual) PT INR Fibrinogen dRVVT Confirm Interp Factor V Activity POC ABG pH POC ABG pCO2 34.3 L POC ABG pO2 71 L Sodium Potassium Chloride Carbon Dioxide BUN Creatinine Glucose POC Glucose 216 H Lactic Acid Calcium Phosphorus Magnesium Direct Bilirubin AST ALT Alkaline Phosphatase Lactate Dehydrogenase Troponin T C-Reactive Protein Total Protein Albumin Prealbumin Triglycerides Cholesterol LDL Cholesterol Direct HDL Cholesterol Urine pH Urine WBC (Auto) Urine Creatinine Urine Total Protein Vancomycin Trough Rheumatoid Factor Complement C4 Miscellaneous Test Crossmatch 09/08/16 09/08/16 09/08/16 06:18 06:51 10:55 WBC RBC Hgb Hct MCV MCH MCHC RDW Plt Count Lymph % (Auto) [place] % (Auto) Lymph # [place] # Baso # Seg Neutrophils % Seg Neuts % (Manual) Lymphocytes % (Manual) Monocytes % (Manual) Eosinophils % (Manual) Basophils % (Manual) Nucleated RBC % Seg Neutrophils # Seg Neutrophils # Man Lymphocytes # (Manual) Monocytes # (Manual) Eosinophils # (Manual) PT INR Fibrinogen dRVVT Confirm Interp Factor V Activity POC ABG pH POC ABG pCO2 POC ABG pO2 Sodium 133 L Potassium Chloride 96.9 L Carbon Dioxide 20 L BUN 63 H Creatinine 2.7 H Glucose 195 H POC Glucose 204 H 169 H Lactic Acid Calcium Phosphorus Magnesium Direct Bilirubin AST ALT Alkaline Phosphatase Lactate Dehydrogenase Troponin T C-Reactive Protein Total Protein Albumin Prealbumin Triglycerides Cholesterol LDL Cholesterol Direct HDL Cholesterol Urine pH Urine WBC (Auto) Urine Creatinine Urine Total Protein Vancomycin Trough Rheumatoid Factor Complement C4 Miscellaneous Test Crossmatch 09/08/16 09/08/16 09/08/16 11:48 11:48 11:48 WBC RBC Hgb Hct MCV MCH MCHC RDW Plt Count Lymph % (Auto) [place] % (Auto) Lymph # [place] # Baso # Seg Neutrophils % Seg Neuts % (Manual) Lymphocytes % (Manual) Monocytes % (Manual) Eosinophils % (Manual) Basophils % (Manual) Nucleated RBC % Seg Neutrophils # Seg Neutrophils # Man Lymphocytes # (Manual) Monocytes # (Manual) Eosinophils # (Manual) PT INR Fibrinogen 750 H dRVVT Confirm Interp Factor V Activity POC ABG pH POC ABG pCO2 POC ABG pO2 Sodium Potassium Chloride Carbon Dioxide BUN Creatinine Glucose POC Glucose Lactic Acid Calcium Phosphorus Magnesium Direct Bilirubin AST ALT Alkaline Phosphatase Lactate Dehydrogenase Troponin T C-Reactive Protein 15.70 H Total Protein Albumin Prealbumin Triglycerides Cholesterol LDL Cholesterol Direct HDL Cholesterol Urine pH Urine WBC (Auto) Urine Creatinine Urine Total Protein Vancomycin Trough Rheumatoid Factor 24 H Complement C4 Miscellaneous Test Crossmatch 09/08/16 09/08/16 09/09/16 15:35 18:25 00:24 WBC RBC Hgb Hct MCV MCH MCHC RDW Plt Count Lymph % (Auto) [place] % (Auto) Lymph # [place] # Baso # Seg Neutrophils % Seg Neuts % (Manual) Lymphocytes % (Manual) Monocytes % (Manual) Eosinophils % (Manual) Basophils % (Manual) Nucleated RBC % Seg Neutrophils # Seg Neutrophils # Man Lymphocytes # (Manual) Monocytes # (Manual) Eosinophils # (Manual) PT INR Fibrinogen dRVVT Confirm Interp Factor V Activity 182 H POC ABG pH POC ABG pCO2 POC ABG pO2 Sodium Potassium Chloride Carbon Dioxide BUN Creatinine Glucose POC Glucose 184 H 216 H Lactic Acid Calcium Phosphorus Magnesium Direct Bilirubin AST ALT Alkaline Phosphatase Lactate Dehydrogenase Troponin T C-Reactive Protein Total Protein Albumin Prealbumin Triglycerides Cholesterol LDL Cholesterol Direct HDL Cholesterol Urine pH Urine WBC (Auto) Urine Creatinine Urine Total Protein Vancomycin Trough Rheumatoid Factor Complement C4 Miscellaneous Test Crossmatch 09/09/16 09/09/16 09/09/16 03:00 03:00 04:04 WBC 27.9 H RBC Hgb 8.7 L Hct 28.1 L MCV 72 L MCH 22 L MCHC RDW 18.4 H Plt Count 485 H Lymph % (Auto) [place] % (Auto) Lymph # [place] # Baso # Seg Neutrophils % Seg Neuts % (Manual) 77.0 H Lymphocytes % (Manual) 9.0 L Monocytes % (Manual) Eosinophils % (Manual) Basophils % (Manual) Nucleated RBC % Seg Neutrophils # Seg Neutrophils # Man 21.5 H Lymphocytes # (Manual) Monocytes # (Manual) 2.0 H Eosinophils # (Manual) PT INR Fibrinogen dRVVT Confirm Interp Factor V Activity POC ABG pH POC ABG pCO2 POC ABG pO2 121 H Sodium 135 L Potassium Chloride 96.3 L Carbon Dioxide 21 L BUN 83 H Creatinine 3.0 H Glucose 135 H POC Glucose Lactic Acid Calcium Phosphorus Magnesium Direct Bilirubin AST ALT Alkaline Phosphatase Lactate Dehydrogenase Troponin T C-Reactive Protein Total Protein Albumin Prealbumin Triglycerides Cholesterol LDL Cholesterol Direct HDL Cholesterol Urine pH Urine WBC (Auto) Urine Creatinine Urine Total Protein Vancomycin Trough Rheumatoid Factor Complement C4 Miscellaneous Test Crossmatch 09/09/16 09/09/16 09/09/16 05:41 11:55 14:13 WBC RBC Hgb Hct MCV MCH MCHC RDW Plt Count Lymph % (Auto) [place] % (Auto) Lymph # [place] # Baso # Seg Neutrophils % Seg Neuts % (Manual) Lymphocytes % (Manual) Monocytes % (Manual) Eosinophils % (Manual) Basophils % (Manual) Nucleated RBC % Seg Neutrophils # Seg Neutrophils # Man Lymphocytes # (Manual) Monocytes # (Manual) Eosinophils # (Manual) PT INR Fibrinogen dRVVT Confirm Interp Factor V Activity POC ABG pH POC ABG pCO2 POC ABG pO2 Sodium Potassium Chloride Carbon Dioxide BUN Creatinine Glucose POC Glucose 155 H 186 H Lactic Acid Calcium Phosphorus Magnesium Direct Bilirubin AST ALT Alkaline Phosphatase Lactate Dehydrogenase Troponin T C-Reactive Protein Total Protein Albumin Prealbumin Triglycerides Cholesterol LDL Cholesterol Direct HDL Cholesterol Urine pH Urine WBC (Auto) 25.0 H Urine Creatinine Urine Total Protein Vancomycin Trough Rheumatoid Factor Complement C4 Miscellaneous Test Crossmatch 09/09/16 09/09/16 09/10/16 17:33 23:13 05:09 WBC RBC Hgb Hct MCV MCH MCHC RDW Plt Count Lymph % (Auto) [place] % (Auto) Lymph # [place] # Baso # Seg Neutrophils % Seg Neuts % (Manual) Lymphocytes % (Manual) Monocytes % (Manual) Eosinophils % (Manual) Basophils % (Manual) Nucleated RBC % Seg Neutrophils # Seg Neutrophils # Man Lymphocytes # (Manual) Monocytes # (Manual) Eosinophils # (Manual) PT INR Fibrinogen dRVVT Confirm Interp Factor V Activity POC ABG pH POC ABG pCO2 POC ABG pO2 74 L Sodium Potassium Chloride Carbon Dioxide BUN Creatinine Glucose POC Glucose 211 H 215 H Lactic Acid Calcium Phosphorus Magnesium Direct Bilirubin AST ALT Alkaline Phosphatase Lactate Dehydrogenase Troponin T C-Reactive Protein Total Protein Albumin Prealbumin Triglycerides Cholesterol LDL Cholesterol Direct HDL Cholesterol Urine pH Urine WBC (Auto) Urine Creatinine Urine Total Protein Vancomycin Trough Rheumatoid Factor Complement C4 Miscellaneous Test Crossmatch 09/10/16 09/10/16 09/10/16 05:17 05:17 11:31 WBC 15.8 H RBC 3.25 L Hgb 7.3 L Hct 22.9 L MCV 71 L MCH 23 L MCHC RDW 18.4 H Plt Count Lymph % (Auto) [place] % (Auto) Lymph # [place] # Baso # Seg Neutrophils % Seg Neuts % (Manual) 91.0 H Lymphocytes % (Manual) 4.0 L Monocytes % (Manual) Eosinophils % (Manual) Basophils % (Manual) Nucleated RBC % Seg Neutrophils # Seg Neutrophils # Man 14.4 H Lymphocytes # (Manual) 0.6 L Monocytes # (Manual) Eosinophils # (Manual) PT INR Fibrinogen dRVVT Confirm Interp Factor V Activity POC ABG pH POC ABG pCO2 POC ABG pO2 Sodium Potassium Chloride Carbon Dioxide 21 L BUN 93 H Creatinine 2.9 H Glucose 146 H POC Glucose 188 H Lactic Acid Calcium 8.1 L Phosphorus Magnesium Direct Bilirubin AST ALT Alkaline Phosphatase Lactate Dehydrogenase Troponin T C-Reactive Protein Total Protein Albumin Prealbumin Triglycerides Cholesterol LDL Cholesterol Direct HDL Cholesterol Urine pH Urine WBC (Auto) Urine Creatinine Urine Total Protein Vancomycin Trough Rheumatoid Factor Complement C4 Miscellaneous Test Crossmatch 09/10/16 09/10/16 09/10/16 13:17 17:20 23:32 WBC RBC Hgb Hct MCV MCH MCHC RDW Plt Count Lymph % (Auto) [place] % (Auto) Lymph # [place] # Baso # Seg Neutrophils % Seg Neuts % (Manual) Lymphocytes % (Manual) Monocytes % (Manual) Eosinophils % (Manual) Basophils % (Manual) Nucleated RBC % Seg Neutrophils # Seg Neutrophils # Man Lymphocytes # (Manual) Monocytes # (Manual) Eosinophils # (Manual) PT INR Fibrinogen dRVVT Confirm Interp Factor V Activity POC ABG pH POC ABG pCO2 POC ABG pO2 Sodium Potassium Chloride Carbon Dioxide BUN Creatinine Glucose POC Glucose 199 H 186 H Lactic Acid Calcium Phosphorus Magnesium Direct Bilirubin AST ALT Alkaline Phosphatase Lactate Dehydrogenase Troponin T C-Reactive Protein Total Protein Albumin Prealbumin Triglycerides Cholesterol LDL Cholesterol Direct HDL Cholesterol Urine pH Urine WBC (Auto) Urine Creatinine Urine Total Protein Vancomycin Trough Rheumatoid Factor Complement C4 Miscellaneous Test Crossmatch See Detail 09/11/16 09/11/16 09/11/16 05:10 05:10 05:17 WBC 28.4 H RBC Hgb 9.2 L Hct 29.3 L D MCV 73 L MCH 23 L MCHC RDW 18.9 H Plt Count 452 H Lymph % (Auto) [place] % (Auto) Lymph # [place] # Baso # Seg Neutrophils % Seg Neuts % (Manual) 89.5 H Lymphocytes % (Manual) 2.0 L Monocytes % (Manual) Eosinophils % (Manual) Basophils % (Manual) Nucleated RBC % Seg Neutrophils # Seg Neutrophils # Man 25.4 H Lymphocytes # (Manual) 0.6 L Monocytes # (Manual) 1.3 H Eosinophils # (Manual) PT INR Fibrinogen dRVVT Confirm Interp Factor V Activity POC ABG pH POC ABG pCO2 POC ABG pO2 Sodium 136 L Potassium Chloride Carbon Dioxide 18 L BUN 107 H Creatinine 2.6 H Glucose 187 H POC Glucose 230 H Lactic Acid Calcium 8.3 L Phosphorus Magnesium Direct Bilirubin AST ALT Alkaline Phosphatase Lactate Dehydrogenase Troponin T C-Reactive Protein Total Protein Albumin Prealbumin Triglycerides Cholesterol LDL Cholesterol Direct HDL Cholesterol Urine pH Urine WBC (Auto) Urine Creatinine Urine Total Protein Vancomycin Trough Rheumatoid Factor Complement C4 Miscellaneous Test Crossmatch 09/11/16 09/11/16 09/11/16 05:55 12:02 17:32 WBC RBC Hgb Hct MCV MCH MCHC RDW Plt Count Lymph % (Auto) [place] % (Auto) Lymph # [place] # Baso # Seg Neutrophils % Seg Neuts % (Manual) Lymphocytes % (Manual) Monocytes % (Manual) Eosinophils % (Manual) Basophils % (Manual) Nucleated RBC % Seg Neutrophils # Seg Neutrophils # Man Lymphocytes # (Manual) Monocytes # (Manual) Eosinophils # (Manual) PT INR Fibrinogen dRVVT Confirm Interp Factor V Activity POC ABG pH POC ABG pCO2 33.8 L POC ABG pO2 Sodium Potassium Chloride Carbon Dioxide BUN Creatinine Glucose POC Glucose 191 H 239 H Lactic Acid Calcium Phosphorus Magnesium Direct Bilirubin AST ALT Alkaline Phosphatase Lactate Dehydrogenase Troponin T C-Reactive Protein Total Protein Albumin Prealbumin Triglycerides Cholesterol LDL Cholesterol Direct HDL Cholesterol Urine pH Urine WBC (Auto) Urine Creatinine Urine Total Protein Vancomycin Trough Rheumatoid Factor Complement C4 Miscellaneous Test Crossmatch 09/11/16 09/12/16 09/12/16 23:52 05:09 05:32 WBC RBC Hgb Hct MCV MCH MCHC RDW Plt Count Lymph % (Auto) [place] % (Auto) Lymph # [place] # Baso # Seg Neutrophils % Seg Neuts % (Manual) Lymphocytes % (Manual) Monocytes % (Manual) Eosinophils % (Manual) Basophils % (Manual) Nucleated RBC % Seg Neutrophils # Seg Neutrophils # Man Lymphocytes # (Manual) Monocytes # (Manual) Eosinophils # (Manual) PT INR Fibrinogen dRVVT Confirm Interp Factor V Activity POC ABG pH POC ABG pCO2 34.6 L POC ABG pO2 Sodium Potassium Chloride Carbon Dioxide BUN Creatinine Glucose POC Glucose 265 H 184 H Lactic Acid Calcium Phosphorus Magnesium Direct Bilirubin AST ALT Alkaline Phosphatase Lactate Dehydrogenase Troponin T C-Reactive Protein Total Protein Albumin Prealbumin Triglycerides Cholesterol LDL Cholesterol Direct HDL Cholesterol Urine pH Urine WBC (Auto) Urine Creatinine Urine Total Protein Vancomycin Trough Rheumatoid Factor Complement C4 Miscellaneous Test Crossmatch 09/12/16 09/12/16 09/12/16 06:45 06:45 07:22 WBC 31.7 H RBC 3.54 L Hgb 8.3 L Hct 25.9 L MCV 73 L MCH 23 L MCHC RDW 18.9 H Plt Count Lymph % (Auto) [place] % (Auto) Lymph # [place] # Baso # Seg Neutrophils % Seg Neuts % (Manual) 88.5 H Lymphocytes % (Manual) 4.5 L Monocytes % (Manual) Eosinophils % (Manual) Basophils % (Manual) Nucleated RBC % Seg Neutrophils # Seg Neutrophils # Man 28.1 H Lymphocytes # (Manual) Monocytes # (Manual) 1.0 H Eosinophils # (Manual) PT INR Fibrinogen dRVVT Confirm Interp Factor V Activity POC ABG pH POC ABG pCO2 POC ABG pO2 Sodium Potassium Chloride Carbon Dioxide 20 L BUN 115 H Creatinine 2.7 H Glucose 165 H POC Glucose Lactic Acid Calcium 8.0 L Phosphorus Magnesium Direct Bilirubin AST ALT Alkaline Phosphatase Lactate Dehydrogenase Troponin T C-Reactive Protein Total Protein Albumin Prealbumin Triglycerides 217 H Cholesterol LDL Cholesterol Direct HDL Cholesterol Urine pH Urine WBC (Auto) Urine Creatinine Urine Total Protein Vancomycin Trough Rheumatoid Factor Complement C4 Miscellaneous Test Crossmatch 09/12/16 09/12/16 09/12/16 07:22 09:59 12:21 WBC RBC Hgb Hct MCV MCH MCHC RDW Plt Count Lymph % (Auto) [place] % (Auto) Lymph # [place] # Baso # Seg Neutrophils % Seg Neuts % (Manual) Lymphocytes % (Manual) Monocytes % (Manual) Eosinophils % (Manual) Basophils % (Manual) Nucleated RBC % Seg Neutrophils # Seg Neutrophils # Man Lymphocytes # (Manual) Monocytes # (Manual) Eosinophils # (Manual) PT INR Fibrinogen dRVVT Confirm Interp Positive H Factor V Activity POC ABG pH POC ABG pCO2 POC ABG pO2 Sodium Potassium Chloride Carbon Dioxide BUN Creatinine Glucose POC Glucose 224 H Lactic Acid Calcium Phosphorus Magnesium Direct Bilirubin AST ALT Alkaline Phosphatase Lactate Dehydrogenase Troponin T C-Reactive Protein 1.70 H Total Protein Albumin Prealbumin Triglycerides Cholesterol LDL Cholesterol Direct HDL Cholesterol Urine pH Urine WBC (Auto) Urine Creatinine Urine Total Protein Vancomycin Trough Rheumatoid Factor Complement C4 Miscellaneous Test Crossmatch 09/12/16 09/12/16 09/13/16 16:51 23:28 04:00 WBC 45.0 H* RBC Hgb 9.4 L Hct MCV 75 L MCH 23 L MCHC RDW 19.0 H Plt Count 470 H Lymph % (Auto) [place] % (Auto) Lymph # [place] # Baso # Seg Neutrophils % Seg Neuts % (Manual) 89.0 H Lymphocytes % (Manual) 5.0 L Monocytes % (Manual) Eosinophils % (Manual) Basophils % (Manual) Nucleated RBC % Seg Neutrophils # Seg Neutrophils # Man 40.1 H Lymphocytes # (Manual) Monocytes # (Manual) Eosinophils # (Manual) PT INR Fibrinogen dRVVT Confirm Interp Factor V Activity POC ABG pH POC ABG pCO2 POC ABG pO2 Sodium Potassium Chloride Carbon Dioxide BUN Creatinine Glucose POC Glucose 169 H 150 H Lactic Acid Calcium Phosphorus Magnesium Direct Bilirubin AST ALT Alkaline Phosphatase Lactate Dehydrogenase Troponin T C-Reactive Protein Total Protein Albumin Prealbumin Triglycerides Cholesterol LDL Cholesterol Direct HDL Cholesterol Urine pH Urine WBC (Auto) Urine Creatinine Urine Total Protein Vancomycin Trough Rheumatoid Factor Complement C4 Miscellaneous Test Crossmatch 09/13/16 09/13/16 09/13/16 04:00 11:26 17:31 WBC RBC Hgb Hct MCV MCH MCHC RDW Plt Count Lymph % (Auto) [place] % (Auto) Lymph # [place] # Baso # Seg Neutrophils % Seg Neuts % (Manual) Lymphocytes % (Manual) Monocytes % (Manual) Eosinophils % (Manual) Basophils % (Manual) Nucleated RBC % Seg Neutrophils # Seg Neutrophils # Man Lymphocytes # (Manual) Monocytes # (Manual) Eosinophils # (Manual) PT INR Fibrinogen dRVVT Confirm Interp Factor V Activity POC ABG pH POC ABG pCO2 POC ABG pO2 Sodium Potassium Chloride Carbon Dioxide 20 L BUN 116 H Creatinine 3.0 H Glucose 172 H POC Glucose 140 H 183 H Lactic Acid Calcium Phosphorus Magnesium Direct Bilirubin AST ALT Alkaline Phosphatase Lactate Dehydrogenase Troponin T C-Reactive Protein Total Protein 6.2 L Albumin 2.9 L Prealbumin Triglycerides Cholesterol LDL Cholesterol Direct HDL Cholesterol Urine pH Urine WBC (Auto) Urine Creatinine Urine Total Protein Vancomycin Trough Rheumatoid Factor Complement C4 Miscellaneous Test Crossmatch 09/13/16 09/14/16 09/14/16 23:23 04:06 04:07 WBC 29.4 H RBC Hgb 8.9 L Hct 27.3 L MCV 75 L MCH 24 L MCHC RDW 19.1 H Plt Count Lymph % (Auto) [place] % (Auto) Lymph # [place] # Baso # Seg Neutrophils % Seg Neuts % (Manual) 84.0 H Lymphocytes % (Manual) 6.0 L Monocytes % (Manual) 9.0 H Eosinophils % (Manual) Basophils % (Manual) Nucleated RBC % Seg Neutrophils # Seg Neutrophils # Man 24.7 H Lymphocytes # (Manual) Monocytes # (Manual) 2.6 H Eosinophils # (Manual) PT INR Fibrinogen dRVVT Confirm Interp Factor V Activity POC ABG pH 7.342 L POC ABG pCO2 POC ABG pO2 116 H Sodium Potassium Chloride Carbon Dioxide BUN Creatinine Glucose POC Glucose 154 H Lactic Acid Calcium Phosphorus Magnesium Direct Bilirubin AST ALT Alkaline Phosphatase Lactate Dehydrogenase Troponin T C-Reactive Protein Total Protein Albumin Prealbumin Triglycerides Cholesterol LDL Cholesterol Direct HDL Cholesterol Urine pH Urine WBC (Auto) Urine Creatinine Urine Total Protein Vancomycin Trough Rheumatoid Factor Complement C4 Miscellaneous Test Crossmatch 09/14/16 09/14/16 09/14/16 04:07 05:29 12:19 WBC RBC Hgb Hct MCV MCH MCHC RDW Plt Count Lymph % (Auto) [place] % (Auto) Lymph # [place] # Baso # Seg Neutrophils % Seg Neuts % (Manual) Lymphocytes % (Manual) Monocytes % (Manual) Eosinophils % (Manual) Basophils % (Manual) Nucleated RBC % Seg Neutrophils # Seg Neutrophils # Man Lymphocytes # (Manual) Monocytes # (Manual) Eosinophils # (Manual) PT INR Fibrinogen dRVVT Confirm Interp Factor V Activity POC ABG pH POC ABG pCO2 POC ABG pO2 Sodium 136 L Potassium Chloride Carbon Dioxide 18 L BUN 121 H Creatinine 2.8 H Glucose 214 H POC Glucose 239 H 181 H Lactic Acid Calcium Phosphorus Magnesium Direct Bilirubin AST ALT Alkaline Phosphatase Lactate Dehydrogenase Troponin T C-Reactive Protein Total Protein Albumin Prealbumin Triglycerides Cholesterol LDL Cholesterol Direct HDL Cholesterol Urine pH Urine WBC (Auto) Urine Creatinine Urine Total Protein Vancomycin Trough Rheumatoid Factor Complement C4 Miscellaneous Test Crossmatch 09/14/16 09/14/16 09/15/16 18:12 23:37 05:00 WBC 26.1 H RBC 3.05 L Hgb 7.2 L Hct 22.9 L MCV 75 L MCH 24 L MCHC RDW 19.0 H Plt Count Lymph % (Auto) [place] % (Auto) Lymph # [place] # Baso # Seg Neutrophils % Seg Neuts % (Manual) Lymphocytes % (Manual) Monocytes % (Manual) Eosinophils % (Manual) Basophils % (Manual) Nucleated RBC % Seg Neutrophils # Seg Neutrophils # Man Lymphocytes # (Manual) Monocytes # (Manual) Eosinophils # (Manual) PT INR Fibrinogen dRVVT Confirm Interp Factor V Activity POC ABG pH POC ABG pCO2 POC ABG pO2 Sodium Potassium Chloride Carbon Dioxide BUN Creatinine Glucose POC Glucose 266 H 154 H Lactic Acid Calcium Phosphorus Magnesium Direct Bilirubin AST ALT Alkaline Phosphatase Lactate Dehydrogenase Troponin T C-Reactive Protein Total Protein Albumin Prealbumin Triglycerides Cholesterol LDL Cholesterol Direct HDL Cholesterol Urine pH Urine WBC (Auto) Urine Creatinine Urine Total Protein Vancomycin Trough Rheumatoid Factor Complement C4 Miscellaneous Test Crossmatch 09/15/16 09/15/16 09/15/16 05:00 05:17 12:45 WBC RBC Hgb Hct MCV MCH MCHC RDW Plt Count Lymph % (Auto) [place] % (Auto) Lymph # [place] # Baso # Seg Neutrophils % Seg Neuts % (Manual) Lymphocytes % (Manual) Monocytes % (Manual) Eosinophils % (Manual) Basophils % (Manual) Nucleated RBC % Seg Neutrophils # Seg Neutrophils # Man Lymphocytes # (Manual) Monocytes # (Manual) Eosinophils # (Manual) PT INR Fibrinogen dRVVT Confirm Interp Factor V Activity POC ABG pH POC ABG pCO2 POC ABG pO2 Sodium Potassium 5.2 H Chloride Carbon Dioxide 18 L BUN 139 H Creatinine 3.7 H Glucose 227 H POC Glucose 226 H 244 H Lactic Acid Calcium 8.3 L Phosphorus Magnesium Direct Bilirubin AST ALT Alkaline Phosphatase Lactate Dehydrogenase Troponin T C-Reactive Protein Total Protein Albumin Prealbumin Triglycerides Cholesterol LDL Cholesterol Direct HDL Cholesterol Urine pH Urine WBC (Auto) Urine Creatinine Urine Total Protein Vancomycin Trough Rheumatoid Factor Complement C4 Miscellaneous Test Crossmatch 09/15/16 09/15/16 09/15/16 14:32 17:33 23:35 WBC RBC Hgb Hct MCV MCH MCHC RDW Plt Count Lymph % (Auto) [place] % (Auto) Lymph # [place] # Baso # Seg Neutrophils % Seg Neuts % (Manual) Lymphocytes % (Manual) Monocytes % (Manual) Eosinophils % (Manual) Basophils % (Manual) Nucleated RBC % Seg Neutrophils # Seg Neutrophils # Man Lymphocytes # (Manual) Monocytes # (Manual) Eosinophils # (Manual) PT INR Fibrinogen dRVVT Confirm Interp Factor V Activity POC ABG pH POC ABG pCO2 27.7 L POC ABG pO2 120 H Sodium Potassium Chloride Carbon Dioxide BUN Creatinine Glucose POC Glucose 232 H 167 H Lactic Acid Calcium Phosphorus Magnesium Direct Bilirubin AST ALT Alkaline Phosphatase Lactate Dehydrogenase Troponin T C-Reactive Protein Total Protein Albumin Prealbumin Triglycerides Cholesterol LDL Cholesterol Direct HDL Cholesterol Urine pH Urine WBC (Auto) Urine Creatinine Urine Total Protein Vancomycin Trough Rheumatoid Factor Complement C4 Miscellaneous Test Crossmatch 09/16/16 09/16/16 09/16/16 03:58 10:27 10:27 WBC 19.0 H RBC 2.77 L Hgb 6.5 L Hct 20.9 L MCV 76 L MCH 23 L MCHC RDW 19.3 H Plt Count Lymph % (Auto) 11.0 L [place] % (Auto) Lymph # [place] # 1.1 H Baso # Seg Neutrophils % 82.5 H Seg Neuts % (Manual) Lymphocytes % (Manual) Monocytes % (Manual) Eosinophils % (Manual) Basophils % (Manual) Nucleated RBC % Seg Neutrophils # 15.7 H Seg Neutrophils # Man Lymphocytes # (Manual) Monocytes # (Manual) Eosinophils # (Manual) PT INR Fibrinogen dRVVT Confirm Interp Factor V Activity POC ABG pH POC ABG pCO2 POC ABG pO2 Sodium Potassium Chloride 109.3 H Carbon Dioxide 18 L BUN 139 H Creatinine 4.1 H Glucose 144 H POC Glucose 146 H Lactic Acid Calcium 8.1 L Phosphorus Magnesium Direct Bilirubin AST ALT Alkaline Phosphatase Lactate Dehydrogenase Troponin T C-Reactive Protein Total Protein Albumin Prealbumin Triglycerides Cholesterol LDL Cholesterol Direct HDL Cholesterol Urine pH Urine WBC (Auto) Urine Creatinine Urine Total Protein Vancomycin Trough Rheumatoid Factor Complement C4 Miscellaneous Test Crossmatch 09/16/16 09/16/16 09/16/16 12:04 12:10 13:55 WBC RBC Hgb Hct MCV MCH MCHC RDW Plt Count Lymph % (Auto) [place] % (Auto) Lymph # [place] # Baso # Seg Neutrophils % Seg Neuts % (Manual) Lymphocytes % (Manual) Monocytes % (Manual) Eosinophils % (Manual) Basophils % (Manual) Nucleated RBC % Seg Neutrophils # Seg Neutrophils # Man Lymphocytes # (Manual) Monocytes # (Manual) Eosinophils # (Manual) PT INR Fibrinogen dRVVT Confirm Interp Factor V Activity POC ABG pH POC ABG pCO2 32.9 L POC ABG pO2 Sodium Potassium Chloride Carbon Dioxide BUN Creatinine Glucose POC Glucose 185 H Lactic Acid Calcium Phosphorus Magnesium Direct Bilirubin AST ALT Alkaline Phosphatase Lactate Dehydrogenase Troponin T C-Reactive Protein Total Protein Albumin Prealbumin Triglycerides Cholesterol LDL Cholesterol Direct HDL Cholesterol Urine pH Urine WBC (Auto) Urine Creatinine Urine Total Protein Vancomycin Trough Rheumatoid Factor Complement C4 Miscellaneous Test Crossmatch See Detail 09/16/16 09/16/16 09/16/16 17:55 19:19 23:48 WBC RBC Hgb Hct MCV MCH MCHC RDW Plt Count Lymph % (Auto) [place] % (Auto) Lymph # [place] # Baso # Seg Neutrophils % Seg Neuts % (Manual) Lymphocytes % (Manual) Monocytes % (Manual) Eosinophils % (Manual) Basophils % (Manual) Nucleated RBC % Seg Neutrophils # Seg Neutrophils # Man Lymphocytes # (Manual) Monocytes # (Manual) Eosinophils # (Manual) PT INR Fibrinogen dRVVT Confirm Interp Factor V Activity POC ABG pH POC ABG pCO2 POC ABG pO2 Sodium Potassium Chloride Carbon Dioxide BUN Creatinine Glucose POC Glucose 222 H 107 H Lactic Acid Calcium Phosphorus Magnesium Direct Bilirubin AST ALT Alkaline Phosphatase Lactate Dehydrogenase Troponin T C-Reactive Protein Total Protein Albumin Prealbumin Triglycerides Cholesterol LDL Cholesterol Direct HDL Cholesterol Urine pH Urine WBC (Auto) Urine Creatinine 47.4 H Urine Total Protein 16 H Vancomycin Trough Rheumatoid Factor Complement C4 Miscellaneous Test Crossmatch 09/17/16 09/17/16 09/17/16 03:45 03:45 04:55 WBC 19.6 H RBC 3.41 L Hgb 8.5 L Hct 26.7 L MCV 78 L MCH 25 L MCHC RDW 19.9 H Plt Count Lymph % (Auto) 9.3 L [place] % (Auto) Lymph # [place] # 1.2 H Baso # Seg Neutrophils % 83.9 H Seg Neuts % (Manual) Lymphocytes % (Manual) Monocytes % (Manual) Eosinophils % (Manual) Basophils % (Manual) Nucleated RBC % Seg Neutrophils # 16.4 H Seg Neutrophils # Man Lymphocytes # (Manual) Monocytes # (Manual) Eosinophils # (Manual) PT INR Fibrinogen dRVVT Confirm Interp Factor V Activity POC ABG pH POC ABG pCO2 POC ABG pO2 Sodium 146 H Potassium 5.1 H Chloride 110.9 H Carbon Dioxide 16 L BUN 146 H Creatinine 4.0 H Glucose 108 H POC Glucose 133 H Lactic Acid Calcium Phosphorus Magnesium 3.00 H Direct Bilirubin AST ALT Alkaline Phosphatase Lactate Dehydrogenase Troponin T C-Reactive Protein Total Protein Albumin Prealbumin Triglycerides Cholesterol LDL Cholesterol Direct HDL Cholesterol Urine pH Urine WBC (Auto) Urine Creatinine Urine Total Protein Vancomycin Trough Rheumatoid Factor Complement C4 Miscellaneous Test Crossmatch 09/17/16 09/17/16 09/17/16 11:15 17:33 23:47 WBC RBC Hgb Hct MCV MCH MCHC RDW Plt Count Lymph % (Auto) [place] % (Auto) Lymph # [place] # Baso # Seg Neutrophils % Seg Neuts % (Manual) Lymphocytes % (Manual) Monocytes % (Manual) Eosinophils % (Manual) Basophils % (Manual) Nucleated RBC % Seg Neutrophils # Seg Neutrophils # Man Lymphocytes # (Manual) Monocytes # (Manual) Eosinophils # (Manual) PT INR Fibrinogen dRVVT Confirm Interp Factor V Activity POC ABG pH POC ABG pCO2 POC ABG pO2 Sodium Potassium Chloride Carbon Dioxide BUN Creatinine Glucose POC Glucose 176 H 246 H 148 H Lactic Acid Calcium Phosphorus Magnesium Direct Bilirubin AST ALT Alkaline Phosphatase Lactate Dehydrogenase Troponin T C-Reactive Protein Total Protein Albumin Prealbumin Triglycerides Cholesterol LDL Cholesterol Direct HDL Cholesterol Urine pH Urine WBC (Auto) Urine Creatinine Urine Total Protein Vancomycin Trough Rheumatoid Factor Complement C4 Miscellaneous Test Crossmatch 09/18/16 09/18/16 09/18/16 05:33 08:31 08:31 WBC 18.0 H RBC 3.17 L Hgb 9.0 L Hct 25.7 L MCV MCH MCHC 35 H RDW 20.4 H Plt Count Lymph % (Auto) [place] % (Auto) Lymph # [place] # Baso # Seg Neutrophils % Seg Neuts % (Manual) Lymphocytes % (Manual) Monocytes % (Manual) Eosinophils % (Manual) Basophils % (Manual) Nucleated RBC % Seg Neutrophils # Seg Neutrophils # Man Lymphocytes # (Manual) Monocytes # (Manual) Eosinophils # (Manual) PT INR Fibrinogen dRVVT Confirm Interp Factor V Activity POC ABG pH POC ABG pCO2 POC ABG pO2 Sodium Potassium Chloride Carbon Dioxide 15 L BUN 124 H Creatinine 3.8 H Glucose POC Glucose 120 H Lactic Acid Calcium 8.1 L Phosphorus Magnesium Direct Bilirubin AST ALT Alkaline Phosphatase Lactate Dehydrogenase Troponin T C-Reactive Protein Total Protein Albumin Prealbumin Triglycerides Cholesterol LDL Cholesterol Direct HDL Cholesterol Urine pH Urine WBC (Auto) Urine Creatinine Urine Total Protein Vancomycin Trough Rheumatoid Factor Complement C4 Miscellaneous Test Crossmatch 09/18/16 09/18/16 09/18/16 12:03 15:34 17:50 WBC RBC Hgb Hct MCV MCH MCHC RDW Plt Count Lymph % (Auto) [place] % (Auto) Lymph # [place] # Baso # Seg Neutrophils % Seg Neuts % (Manual) Lymphocytes % (Manual) Monocytes % (Manual) Eosinophils % (Manual) Basophils % (Manual) Nucleated RBC % Seg Neutrophils # Seg Neutrophils # Man Lymphocytes # (Manual) Monocytes # (Manual) Eosinophils # (Manual) PT INR Fibrinogen dRVVT Confirm Interp Factor V Activity POC ABG pH POC ABG pCO2 25.7 L POC ABG pO2 66 L Sodium Potassium Chloride Carbon Dioxide BUN Creatinine Glucose POC Glucose 156 H 220 H Lactic Acid Calcium Phosphorus Magnesium Direct Bilirubin AST ALT Alkaline Phosphatase Lactate Dehydrogenase Troponin T C-Reactive Protein Total Protein Albumin Prealbumin Triglycerides Cholesterol LDL Cholesterol Direct HDL Cholesterol Urine pH Urine WBC (Auto) Urine Creatinine Urine Total Protein Vancomycin Trough Rheumatoid Factor Complement C4 Miscellaneous Test Crossmatch 09/19/16 09/19/16 09/19/16 06:21 09:50 09:50 WBC 17.1 H RBC 3.49 L Hgb 9.0 L Hct 28.1 L MCV MCH 26 L MCHC RDW 20.8 H Plt Count Lymph % (Auto) 11.5 L [place] % (Auto) 7.5 H Lymph # [place] # 1.3 H Baso # Seg Neutrophils % 79.8 H Seg Neuts % (Manual) Lymphocytes % (Manual) Monocytes % (Manual) Eosinophils % (Manual) Basophils % (Manual) Nucleated RBC % Seg Neutrophils # 13.7 H Seg Neutrophils # Man Lymphocytes # (Manual) Monocytes # (Manual) Eosinophils # (Manual) PT INR Fibrinogen dRVVT Confirm Interp Factor V Activity POC ABG pH POC ABG pCO2 POC ABG pO2 Sodium Potassium Chloride 108.6 H Carbon Dioxide 15 L BUN 125 H Creatinine 4.1 H Glucose 124 H POC Glucose 119 H Lactic Acid Calcium Phosphorus Magnesium Direct Bilirubin AST ALT Alkaline Phosphatase Lactate Dehydrogenase Troponin T C-Reactive Protein Total Protein Albumin Prealbumin Triglycerides Cholesterol LDL Cholesterol Direct HDL Cholesterol Urine pH Urine WBC (Auto) Urine Creatinine Urine Total Protein Vancomycin Trough Rheumatoid Factor Complement C4 Miscellaneous Test Crossmatch 09/19/16 09/19/16 09/19/16 11:25 17:53 23:36 WBC RBC Hgb Hct MCV MCH MCHC RDW Plt Count Lymph % (Auto) [place] % (Auto) Lymph # [place] # Baso # Seg Neutrophils % Seg Neuts % (Manual) Lymphocytes % (Manual) Monocytes % (Manual) Eosinophils % (Manual) Basophils % (Manual) Nucleated RBC % Seg Neutrophils # Seg Neutrophils # Man Lymphocytes # (Manual) Monocytes # (Manual) Eosinophils # (Manual) PT INR Fibrinogen dRVVT Confirm Interp Factor V Activity POC ABG pH POC ABG pCO2 POC ABG pO2 Sodium Potassium Chloride Carbon Dioxide BUN Creatinine Glucose POC Glucose 160 H 245 H 121 H Lactic Acid Calcium Phosphorus Magnesium Direct Bilirubin AST ALT Alkaline Phosphatase Lactate Dehydrogenase Troponin T C-Reactive Protein Total Protein Albumin Prealbumin Triglycerides Cholesterol LDL Cholesterol Direct HDL Cholesterol Urine pH Urine WBC (Auto) Urine Creatinine Urine Total Protein Vancomycin Trough Rheumatoid Factor Complement C4 Miscellaneous Test Crossmatch 09/20/16 09/20/16 09/20/16 04:10 04:10 04:10 WBC 17.0 H RBC 3.21 L Hgb 8.2 L Hct 25.5 L MCV MCH 26 L MCHC RDW 20.9 H Plt Count Lymph % (Auto) [place] % (Auto) Lymph # [place] # Baso # Seg Neutrophils % Seg Neuts % (Manual) Lymphocytes % (Manual) Monocytes % (Manual) Eosinophils % (Manual) Basophils % (Manual) Nucleated RBC % Seg Neutrophils # Seg Neutrophils # Man Lymphocytes # (Manual) Monocytes # (Manual) Eosinophils # (Manual) PT INR Fibrinogen dRVVT Confirm Interp Factor V Activity POC ABG pH POC ABG pCO2 POC ABG pO2 Sodium Potassium Chloride 111.0 H Carbon Dioxide 16 L BUN 129 H Creatinine 3.7 H Glucose 115 H POC Glucose Lactic Acid Calcium 8.2 L Phosphorus Magnesium Direct Bilirubin AST ALT Alkaline Phosphatase Lactate Dehydrogenase Troponin T C-Reactive Protein Total Protein Albumin Prealbumin Triglycerides 243 H Cholesterol LDL Cholesterol Direct HDL Cholesterol Urine pH Urine WBC (Auto) Urine Creatinine Urine Total Protein Vancomycin Trough Rheumatoid Factor Complement C4 Miscellaneous Test Crossmatch 09/20/16 09/20/16 09/20/16 05:40 11:52 16:50 WBC RBC Hgb Hct MCV MCH MCHC RDW Plt Count Lymph % (Auto) [place] % (Auto) Lymph # [place] # Baso # Seg Neutrophils % Seg Neuts % (Manual) Lymphocytes % (Manual) Monocytes % (Manual) Eosinophils % (Manual) Basophils % (Manual) Nucleated RBC % Seg Neutrophils # Seg Neutrophils # Man Lymphocytes # (Manual) Monocytes # (Manual) Eosinophils # (Manual) PT INR Fibrinogen dRVVT Confirm Interp Factor V Activity POC ABG pH POC ABG pCO2 POC ABG pO2 Sodium Potassium Chloride Carbon Dioxide BUN Creatinine Glucose POC Glucose 131 H 183 H 236 H Lactic Acid Calcium Phosphorus Magnesium Direct Bilirubin AST ALT Alkaline Phosphatase Lactate Dehydrogenase Troponin T C-Reactive Protein Total Protein Albumin Prealbumin Triglycerides Cholesterol LDL Cholesterol Direct HDL Cholesterol Urine pH Urine WBC (Auto) Urine Creatinine Urine Total Protein Vancomycin Trough Rheumatoid Factor Complement C4 Miscellaneous Test Crossmatch 09/20/16 09/21/16 09/21/16 23:51 03:30 04:44 WBC RBC Hgb Hct MCV MCH MCHC RDW Plt Count Lymph % (Auto) [place] % (Auto) Lymph # [place] # Baso # Seg Neutrophils % Seg Neuts % (Manual) Lymphocytes % (Manual) Monocytes % (Manual) Eosinophils % (Manual) Basophils % (Manual) Nucleated RBC % Seg Neutrophils # Seg Neutrophils # Man Lymphocytes # (Manual) Monocytes # (Manual) Eosinophils # (Manual) PT INR Fibrinogen dRVVT Confirm Interp Factor V Activity POC ABG pH POC ABG pCO2 POC ABG pO2 Sodium Potassium Chloride Carbon Dioxide BUN Creatinine Glucose POC Glucose 114 H 141 H Lactic Acid Calcium Phosphorus Magnesium 2.70 H Direct Bilirubin AST ALT Alkaline Phosphatase Lactate Dehydrogenase Troponin T C-Reactive Protein Total Protein Albumin Prealbumin Triglycerides Cholesterol LDL Cholesterol Direct HDL Cholesterol Urine pH Urine WBC (Auto) Urine Creatinine Urine Total Protein Vancomycin Trough Rheumatoid Factor Complement C4 Miscellaneous Test Crossmatch 09/21/16 09/21/16 09/21/16 07:45 07:45 10:01 WBC 13.8 H RBC 2.94 L Hgb 7.5 L Hct 23.5 L MCV MCH 26 L MCHC RDW 21.2 H Plt Count Lymph % (Auto) 6.9 L [place] % (Auto) 9.4 H Lymph # 0.9 L [place] # 1.3 H Baso # Seg Neutrophils % 83.2 H Seg Neuts % (Manual) Lymphocytes % (Manual) Monocytes % (Manual) Eosinophils % (Manual) Basophils % (Manual) Nucleated RBC % Seg Neutrophils # 11.5 H Seg Neutrophils # Man Lymphocytes # (Manual) Monocytes # (Manual) Eosinophils # (Manual) PT INR Fibrinogen dRVVT Confirm Interp Factor V Activity POC ABG pH 7.308 L POC ABG pCO2 31.9 L POC ABG pO2 148 H Sodium 147 H Potassium Chloride 114.2 H Carbon Dioxide 15 L BUN 120 H Creatinine 3.9 H Glucose 156 H POC Glucose Lactic Acid Calcium 8.2 L Phosphorus Magnesium Direct Bilirubin AST ALT Alkaline Phosphatase Lactate Dehydrogenase Troponin T C-Reactive Protein Total Protein Albumin Prealbumin Triglycerides Cholesterol LDL Cholesterol Direct HDL Cholesterol Urine pH Urine WBC (Auto) Urine Creatinine Urine Total Protein Vancomycin Trough Rheumatoid Factor Complement C4 Miscellaneous Test Crossmatch 09/21/16 09/21/16 09/21/16 12:00 12:03 13:00 WBC RBC Hgb Hct MCV MCH MCHC RDW Plt Count Lymph % (Auto) [place] % (Auto) Lymph # [place] # Baso # Seg Neutrophils % Seg Neuts % (Manual) Lymphocytes % (Manual) Monocytes % (Manual) Eosinophils % (Manual) Basophils % (Manual) Nucleated RBC % Seg Neutrophils # Seg Neutrophils # Man Lymphocytes # (Manual) Monocytes # (Manual) Eosinophils # (Manual) PT INR Fibrinogen dRVVT Confirm Interp Factor V Activity POC ABG pH POC ABG pCO2 POC ABG pO2 Sodium Potassium Chloride Carbon Dioxide BUN Creatinine Glucose POC Glucose 163 H Lactic Acid Calcium Phosphorus Magnesium Direct Bilirubin AST ALT Alkaline Phosphatase Lactate Dehydrogenase Troponin T C-Reactive Protein Total Protein Albumin Prealbumin Triglycerides Cholesterol LDL Cholesterol Direct HDL Cholesterol Urine pH Urine WBC (Auto) Urine Creatinine 54.8 H Urine Total Protein Vancomycin Trough 2.3 L Rheumatoid Factor Complement C4 Miscellaneous Test Crossmatch 09/21/16 09/21/16 09/22/16 16:51 23:17 06:27 WBC RBC Hgb Hct MCV MCH MCHC RDW Plt Count Lymph % (Auto) [place] % (Auto) Lymph # [place] # Baso # Seg Neutrophils % Seg Neuts % (Manual) Lymphocytes % (Manual) Monocytes % (Manual) Eosinophils % (Manual) Basophils % (Manual) Nucleated RBC % Seg Neutrophils # Seg Neutrophils # Man Lymphocytes # (Manual) Monocytes # (Manual) Eosinophils # (Manual) PT INR Fibrinogen dRVVT Confirm Interp Factor V Activity POC ABG pH POC ABG pCO2 POC ABG pO2 Sodium Potassium Chloride Carbon Dioxide BUN Creatinine Glucose POC Glucose 206 H 114 H 115 H Lactic Acid Calcium Phosphorus Magnesium Direct Bilirubin AST ALT Alkaline Phosphatase Lactate Dehydrogenase Troponin T C-Reactive Protein Total Protein Albumin Prealbumin Triglycerides Cholesterol LDL Cholesterol Direct HDL Cholesterol Urine pH Urine WBC (Auto) Urine Creatinine Urine Total Protein Vancomycin Trough Rheumatoid Factor Complement C4 Miscellaneous Test Crossmatch 09/22/16 09/22/16 09/22/16 07:50 07:50 12:00 WBC 17.8 H RBC 3.04 L Hgb 8.0 L Hct 24.7 L MCV MCH 26 L MCHC RDW 21.6 H Plt Count Lymph % (Auto) [place] % (Auto) Lymph # [place] # Baso # Seg Neutrophils % Seg Neuts % (Manual) Lymphocytes % (Manual) Monocytes % (Manual) Eosinophils % (Manual) Basophils % (Manual) Nucleated RBC % Seg Neutrophils # Seg Neutrophils # Man Lymphocytes # (Manual) Monocytes # (Manual) Eosinophils # (Manual) PT INR Fibrinogen dRVVT Confirm Interp Factor V Activity POC ABG pH POC ABG pCO2 POC ABG pO2 Sodium 150 H Potassium Chloride 118.2 H Carbon Dioxide 14 L BUN 111 H Creatinine 3.7 H Glucose 157 H POC Glucose 183 H Lactic Acid Calcium Phosphorus Magnesium Direct Bilirubin AST ALT Alkaline Phosphatase Lactate Dehydrogenase Troponin T C-Reactive Protein Total Protein Albumin Prealbumin Triglycerides Cholesterol LDL Cholesterol Direct HDL Cholesterol Urine pH Urine WBC (Auto) Urine Creatinine Urine Total Protein Vancomycin Trough Rheumatoid Factor Complement C4 Miscellaneous Test Crossmatch 09/22/16 09/22/16 09/23/16 17:29 23:10 05:00 WBC 19.2 H RBC 3.13 L Hgb 8.0 L Hct 25.2 L MCV MCH 26 L MCHC RDW 22.1 H Plt Count Lymph % (Auto) [place] % (Auto) Lymph # [place] # Baso # Seg Neutrophils % Seg Neuts % (Manual) 92.0 H Lymphocytes % (Manual) 3.0 L Monocytes % (Manual) Eosinophils % (Manual) Basophils % (Manual) Nucleated RBC % Seg Neutrophils # Seg Neutrophils # Man 17.7 H Lymphocytes # (Manual) 0.6 L Monocytes # (Manual) Eosinophils # (Manual) PT INR Fibrinogen dRVVT Confirm Interp Factor V Activity POC ABG pH POC ABG pCO2 POC ABG pO2 Sodium Potassium Chloride Carbon Dioxide BUN Creatinine Glucose POC Glucose 197 H 169 H Lactic Acid Calcium Phosphorus Magnesium Direct Bilirubin AST ALT Alkaline Phosphatase Lactate Dehydrogenase Troponin T C-Reactive Protein Total Protein Albumin Prealbumin Triglycerides Cholesterol LDL Cholesterol Direct HDL Cholesterol Urine pH Urine WBC (Auto) Urine Creatinine Urine Total Protein Vancomycin Trough Rheumatoid Factor Complement C4 Miscellaneous Test Crossmatch 09/23/16 09/23/16 09/23/16 05:00 05:00 05:10 WBC RBC Hgb Hct MCV MCH MCHC RDW Plt Count Lymph % (Auto) [place] % (Auto) Lymph # [place] # Baso # Seg Neutrophils % Seg Neuts % (Manual) Lymphocytes % (Manual) Monocytes % (Manual) Eosinophils % (Manual) Basophils % (Manual) Nucleated RBC % Seg Neutrophils # Seg Neutrophils # Man Lymphocytes # (Manual) Monocytes # (Manual) Eosinophils # (Manual) PT INR Fibrinogen dRVVT Confirm Interp Factor V Activity POC ABG pH POC ABG pCO2 POC ABG pO2 Sodium 147 H Potassium 3.2 L Chloride 115.7 H Carbon Dioxide 13 L BUN 111 H Creatinine 3.8 H Glucose 194 H POC Glucose 188 H Lactic Acid Calcium 7.3 L D Phosphorus Magnesium Direct Bilirubin AST ALT Alkaline Phosphatase Lactate Dehydrogenase Troponin T C-Reactive Protein 3.20 H Total Protein Albumin Prealbumin Triglycerides Cholesterol LDL Cholesterol Direct HDL Cholesterol Urine pH Urine WBC (Auto) Urine Creatinine Urine Total Protein Vancomycin Trough Rheumatoid Factor Complement C4 Miscellaneous Test Crossmatch 09/23/16 09/23/16 09/23/16 11:37 12:29 18:01 WBC RBC Hgb Hct MCV MCH MCHC RDW Plt Count Lymph % (Auto) [place] % (Auto) Lymph # [place] # Baso # Seg Neutrophils % Seg Neuts % (Manual) Lymphocytes % (Manual) Monocytes % (Manual) Eosinophils % (Manual) Basophils % (Manual) Nucleated RBC % Seg Neutrophils # Seg Neutrophils # Man Lymphocytes # (Manual) Monocytes # (Manual) Eosinophils # (Manual) PT INR Fibrinogen dRVVT Confirm Interp Factor V Activity POC ABG pH POC ABG pCO2 18.9 L POC ABG pO2 143 H Sodium Potassium Chloride Carbon Dioxide BUN Creatinine Glucose POC Glucose 153 H 108 H Lactic Acid Calcium Phosphorus Magnesium Direct Bilirubin AST ALT Alkaline Phosphatase Lactate Dehydrogenase Troponin T C-Reactive Protein Total Protein Albumin Prealbumin Triglycerides Cholesterol LDL Cholesterol Direct HDL Cholesterol Urine pH Urine WBC (Auto) Urine Creatinine Urine Total Protein Vancomycin Trough Rheumatoid Factor Complement C4 Miscellaneous Test Crossmatch 09/23/16 09/23/16 09/24/16 21:19 23:43 05:16 WBC RBC Hgb Hct MCV MCH MCHC RDW Plt Count Lymph % (Auto) [place] % (Auto) Lymph # [place] # Baso # Seg Neutrophils % Seg Neuts % (Manual) Lymphocytes % (Manual) Monocytes % (Manual) Eosinophils % (Manual) Basophils % (Manual) Nucleated RBC % Seg Neutrophils # Seg Neutrophils # Man Lymphocytes # (Manual) Monocytes # (Manual) Eosinophils # (Manual) PT INR Fibrinogen dRVVT Confirm Interp Factor V Activity POC ABG pH POC ABG pCO2 17.3 L POC ABG pO2 112 H Sodium Potassium Chloride Carbon Dioxide BUN Creatinine Glucose POC Glucose 143 H 164 H Lactic Acid Calcium Phosphorus Magnesium Direct Bilirubin AST ALT Alkaline Phosphatase Lactate Dehydrogenase Troponin T C-Reactive Protein Total Protein Albumin Prealbumin Triglycerides Cholesterol LDL Cholesterol Direct HDL Cholesterol Urine pH Urine WBC (Auto) Urine Creatinine Urine Total Protein Vancomycin Trough Rheumatoid Factor Complement C4 Miscellaneous Test Crossmatch 09/24/16 09/24/16 09/24/16 05:21 11:58 17:06 WBC RBC Hgb Hct MCV MCH MCHC RDW Plt Count Lymph % (Auto) [place] % (Auto) Lymph # [place] # Baso # Seg Neutrophils % Seg Neuts % (Manual) Lymphocytes % (Manual) Monocytes % (Manual) Eosinophils % (Manual) Basophils % (Manual) Nucleated RBC % Seg Neutrophils # Seg Neutrophils # Man Lymphocytes # (Manual) Monocytes # (Manual) Eosinophils # (Manual) PT INR Fibrinogen dRVVT Confirm Interp Factor V Activity POC ABG pH POC ABG pCO2 POC ABG pO2 Sodium Potassium Chloride Carbon Dioxide 10 L BUN 103 H Creatinine 4.3 H Glucose 163 H POC Glucose 173 H 167 H Lactic Acid Calcium 6.5 L Phosphorus Magnesium Direct Bilirubin AST ALT Alkaline Phosphatase Lactate Dehydrogenase Troponin T C-Reactive Protein Total Protein Albumin Prealbumin Triglycerides Cholesterol LDL Cholesterol Direct HDL Cholesterol Urine pH Urine WBC (Auto) Urine Creatinine Urine Total Protein Vancomycin Trough Rheumatoid Factor Complement C4 Miscellaneous Test Crossmatch 09/24/16 09/24/16 09/24/16 20:15 21:02 23:48 WBC RBC Hgb Hct MCV MCH MCHC RDW Plt Count Lymph % (Auto) [place] % (Auto) Lymph # [place] # Baso # Seg Neutrophils % Seg Neuts % (Manual) Lymphocytes % (Manual) Monocytes % (Manual) Eosinophils % (Manual) Basophils % (Manual) Nucleated RBC % Seg Neutrophils # Seg Neutrophils # Man Lymphocytes # (Manual) Monocytes # (Manual) Eosinophils # (Manual) PT INR Fibrinogen dRVVT Confirm Interp Factor V Activity POC ABG pH 7.288 L POC ABG pCO2 30.2 L 21.5 L POC ABG pO2 32 L 39 L Sodium Potassium Chloride Carbon Dioxide BUN Creatinine Glucose POC Glucose 109 H Lactic Acid Calcium Phosphorus Magnesium Direct Bilirubin AST ALT Alkaline Phosphatase Lactate Dehydrogenase Troponin T C-Reactive Protein Total Protein Albumin Prealbumin Triglycerides Cholesterol LDL Cholesterol Direct HDL Cholesterol Urine pH Urine WBC (Auto) Urine Creatinine Urine Total Protein Vancomycin Trough Rheumatoid Factor Complement C4 Miscellaneous Test Crossmatch 09/25/16 09/25/16 09/25/16 04:20 04:20 04:20 WBC RBC 2.58 L Hgb 7.0 L Hct 21.0 L MCV MCH 27 L MCHC RDW 23.8 H Plt Count Lymph % (Auto) [place] % (Auto) Lymph # [place] # Baso # Seg Neutrophils % Seg Neuts % (Manual) Lymphocytes % (Manual) 12.0 L Monocytes % (Manual) Eosinophils % (Manual) 7.0 H Basophils % (Manual) 2.0 H Nucleated RBC % Seg Neutrophils # Seg Neutrophils # Man Lymphocytes # (Manual) 0.9 L Monocytes # (Manual) Eosinophils # (Manual) 0.5 H PT INR Fibrinogen dRVVT Confirm Interp Factor V Activity POC ABG pH POC ABG pCO2 POC ABG pO2 Sodium Potassium Chloride Carbon Dioxide 15 L BUN 72 H Creatinine 3.8 H Glucose POC Glucose Lactic Acid Calcium 6.0 L Phosphorus 4.60 H Magnesium 1.60 L Direct Bilirubin AST ALT Alkaline Phosphatase Lactate Dehydrogenase Troponin T C-Reactive Protein Total Protein Albumin Prealbumin Triglycerides Cholesterol LDL Cholesterol Direct HDL Cholesterol Urine pH Urine WBC (Auto) Urine Creatinine Urine Total Protein Vancomycin Trough Rheumatoid Factor Complement C4 Miscellaneous Test Crossmatch 09/25/16 09/25/16 09/25/16 04:57 08:02 10:30 WBC RBC Hgb Hct MCV MCH MCHC RDW Plt Count Lymph % (Auto) [place] % (Auto) Lymph # [place] # Baso # Seg Neutrophils % Seg Neuts % (Manual) Lymphocytes % (Manual) Monocytes % (Manual) Eosinophils % (Manual) Basophils % (Manual) Nucleated RBC % Seg Neutrophils # Seg Neutrophils # Man Lymphocytes # (Manual) Monocytes # (Manual) Eosinophils # (Manual) PT INR Fibrinogen dRVVT Confirm Interp Factor V Activity POC ABG pH POC ABG pCO2 24.7 L POC ABG pO2 152 H Sodium Potassium Chloride Carbon Dioxide BUN Creatinine Glucose POC Glucose 113 H Lactic Acid Calcium Phosphorus Magnesium Direct Bilirubin AST ALT Alkaline Phosphatase Lactate Dehydrogenase Troponin T C-Reactive Protein Total Protein Albumin Prealbumin Triglycerides Cholesterol LDL Cholesterol Direct HDL Cholesterol Urine pH Urine WBC (Auto) Urine Creatinine Urine Total Protein Vancomycin Trough Rheumatoid Factor Complement C4 Miscellaneous Test Crossmatch See Detail 09/25/16 09/25/16 09/25/16 12:05 17:44 23:47 WBC RBC Hgb Hct MCV MCH MCHC RDW Plt Count Lymph % (Auto) [place] % (Auto) Lymph # [place] # Baso # Seg Neutrophils % Seg Neuts % (Manual) Lymphocytes % (Manual) Monocytes % (Manual) Eosinophils % (Manual) Basophils % (Manual) Nucleated RBC % Seg Neutrophils # Seg Neutrophils # Man Lymphocytes # (Manual) Monocytes # (Manual) Eosinophils # (Manual) PT INR Fibrinogen dRVVT Confirm Interp Factor V Activity POC ABG pH POC ABG pCO2 POC ABG pO2 Sodium Potassium Chloride Carbon Dioxide BUN Creatinine Glucose POC Glucose 117 H 119 H 150 H Lactic Acid Calcium Phosphorus Magnesium Direct Bilirubin AST ALT Alkaline Phosphatase Lactate Dehydrogenase Troponin T C-Reactive Protein Total Protein Albumin Prealbumin Triglycerides Cholesterol LDL Cholesterol Direct HDL Cholesterol Urine pH Urine WBC (Auto) Urine Creatinine Urine Total Protein Vancomycin Trough Rheumatoid Factor Complement C4 Miscellaneous Test Crossmatch 09/26/16 09/26/16 09/26/16 04:25 04:25 04:25 WBC RBC 2.65 L Hgb 7.4 L Hct 21.6 L MCV MCH MCHC RDW 22.5 H Plt Count Lymph % (Auto) [place] % (Auto) Lymph # [place] # Baso # Seg Neutrophils % Seg Neuts % (Manual) Lymphocytes % (Manual) 6.0 L Monocytes % (Manual) Eosinophils % (Manual) 11.0 H Basophils % (Manual) Nucleated RBC % Seg Neutrophils # Seg Neutrophils # Man Lymphocytes # (Manual) 0.4 L Monocytes # (Manual) Eosinophils # (Manual) 0.6 H PT INR Fibrinogen dRVVT Confirm Interp Factor V Activity POC ABG pH POC ABG pCO2 POC ABG pO2 Sodium Potassium Chloride 97.0 L Carbon Dioxide 19 L BUN 43 H Creatinine 2.6 H Glucose 130 H POC Glucose Lactic Acid 4.40 H* Calcium 6.7 L Phosphorus Magnesium Direct Bilirubin AST ALT Alkaline Phosphatase Lactate Dehydrogenase Troponin T C-Reactive Protein Total Protein Albumin Prealbumin Triglycerides Cholesterol LDL Cholesterol Direct HDL Cholesterol Urine pH Urine WBC (Auto) Urine Creatinine Urine Total Protein Vancomycin Trough Rheumatoid Factor Complement C4 Miscellaneous Test Crossmatch 09/26/16 09/26/16 09/26/16 05:20 11:44 12:12 WBC RBC Hgb Hct MCV MCH MCHC RDW Plt Count Lymph % (Auto) [place] % (Auto) Lymph # [place] # Baso # Seg Neutrophils % Seg Neuts % (Manual) Lymphocytes % (Manual) Monocytes % (Manual) Eosinophils % (Manual) Basophils % (Manual) Nucleated RBC % Seg Neutrophils # Seg Neutrophils # Man Lymphocytes # (Manual) Monocytes # (Manual) Eosinophils # (Manual) PT INR Fibrinogen dRVVT Confirm Interp Factor V Activity POC ABG pH POC ABG pCO2 27.0 L POC ABG pO2 69 L Sodium Potassium Chloride Carbon Dioxide BUN Creatinine Glucose POC Glucose 121 H 128 H Lactic Acid Calcium Phosphorus Magnesium Direct Bilirubin AST ALT Alkaline Phosphatase Lactate Dehydrogenase Troponin T C-Reactive Protein Total Protein Albumin Prealbumin Triglycerides Cholesterol LDL Cholesterol Direct HDL Cholesterol Urine pH Urine WBC (Auto) Urine Creatinine Urine Total Protein Vancomycin Trough Rheumatoid Factor Complement C4 Miscellaneous Test Crossmatch 09/26/16 09/26/16 09/27/16 18:31 23:40 08:20 WBC RBC Hgb Hct MCV MCH MCHC RDW Plt Count Lymph % (Auto) [place] % (Auto) Lymph # [place] # Baso # Seg Neutrophils % Seg Neuts % (Manual) Lymphocytes % (Manual) Monocytes % (Manual) Eosinophils % (Manual) Basophils % (Manual) Nucleated RBC % Seg Neutrophils # Seg Neutrophils # Man Lymphocytes # (Manual) Monocytes # (Manual) Eosinophils # (Manual) PT INR Fibrinogen dRVVT Confirm Interp Factor V Activity POC ABG pH POC ABG pCO2 POC ABG pO2 Sodium Potassium Chloride Carbon Dioxide BUN Creatinine Glucose POC Glucose 120 H 133 H Lactic Acid 4.10 H* Calcium Phosphorus Magnesium Direct Bilirubin AST ALT Alkaline Phosphatase Lactate Dehydrogenase Troponin T C-Reactive Protein Total Protein Albumin Prealbumin Triglycerides Cholesterol LDL Cholesterol Direct HDL Cholesterol Urine pH Urine WBC (Auto) Urine Creatinine Urine Total Protein Vancomycin Trough Rheumatoid Factor Complement C4 Miscellaneous Test Crossmatch 09/27/16 09/27/16 09/27/16 11:23 15:00 18:15 WBC RBC Hgb Hct MCV MCH MCHC RDW Plt Count Lymph % (Auto) [place] % (Auto) Lymph # [place] # Baso # Seg Neutrophils % Seg Neuts % (Manual) Lymphocytes % (Manual) Monocytes % (Manual) Eosinophils % (Manual) Basophils % (Manual) Nucleated RBC % Seg Neutrophils # Seg Neutrophils # Man Lymphocytes # (Manual) Monocytes # (Manual) Eosinophils # (Manual) PT INR Fibrinogen dRVVT Confirm Interp Factor V Activity POC ABG pH 7.459 H POC ABG pCO2 27.1 L POC ABG pO2 140 H Sodium Potassium Chloride Carbon Dioxide BUN Creatinine Glucose POC Glucose 114 H 127 H Lactic Acid Calcium Phosphorus Magnesium Direct Bilirubin AST ALT Alkaline Phosphatase Lactate Dehydrogenase Troponin T C-Reactive Protein Total Protein Albumin Prealbumin Triglycerides Cholesterol LDL Cholesterol Direct HDL Cholesterol Urine pH Urine WBC (Auto) Urine Creatinine Urine Total Protein Vancomycin Trough Rheumatoid Factor Complement C4 Miscellaneous Test Crossmatch 09/27/16 09/27/16 09/28/16 Unknown Unknown 03:45 WBC RBC 2.49 L Hgb 6.8 L Hct 20.7 L MCV MCH 27 L MCHC RDW 22.1 H Plt Count Lymph % (Auto) [place] % (Auto) Lymph # [place] # Baso # Seg Neutrophils % Seg Neuts % (Manual) 32.0 L Lymphocytes % (Manual) 12.0 L Monocytes % (Manual) 11.0 H Eosinophils % (Manual) 10.0 H Basophils % (Manual) Nucleated RBC % Seg Neutrophils # Seg Neutrophils # Man Lymphocytes # (Manual) 1.0 L Monocytes # (Manual) 0.9 H Eosinophils # (Manual) 0.8 H PT INR Fibrinogen dRVVT Confirm Interp Factor V Activity POC ABG pH POC ABG pCO2 POC ABG pO2 Sodium 135 L 135 L Potassium 3.5 L Chloride 93.6 L 94.4 L Carbon Dioxide 17 L 21 L BUN 45 H 28 H Creatinine 3.3 H 2.5 H Glucose 106 H POC Glucose Lactic Acid Calcium 7.3 L 7.1 L Phosphorus Magnesium Direct Bilirubin AST ALT Alkaline Phosphatase Lactate Dehydrogenase Troponin T C-Reactive Protein Total Protein Albumin Prealbumin Triglycerides Cholesterol LDL Cholesterol Direct HDL Cholesterol Urine pH Urine WBC (Auto) Urine Creatinine Urine Total Protein Vancomycin Trough Rheumatoid Factor Complement C4 Miscellaneous Test Crossmatch 09/28/16 09/28/16 09/28/16 03:45 07:25 11:58 WBC 13.3 H RBC 3.01 L Hgb 8.4 L Hct 25.0 L MCV MCH MCHC RDW 20.5 H Plt Count 128 L Lymph % (Auto) [place] % (Auto) Lymph # [place] # Baso # Seg Neutrophils % Seg Neuts % (Manual) Lymphocytes % (Manual) 7.0 L Monocytes % (Manual) Eosinophils % (Manual) 6.0 H Basophils % (Manual) Nucleated RBC % Seg Neutrophils # Seg Neutrophils # Man Lymphocytes # (Manual) 0.9 L Monocytes # (Manual) Eosinophils # (Manual) 0.8 H PT INR Fibrinogen dRVVT Confirm Interp Factor V Activity POC ABG pH POC ABG pCO2 POC ABG pO2 Sodium Potassium Chloride Carbon Dioxide BUN Creatinine Glucose POC Glucose 121 H Lactic Acid 4.50 H* Calcium Phosphorus Magnesium Direct Bilirubin AST ALT Alkaline Phosphatase Lactate Dehydrogenase Troponin T C-Reactive Protein Total Protein Albumin Prealbumin Triglycerides Cholesterol LDL Cholesterol Direct HDL Cholesterol Urine pH Urine WBC (Auto) Urine Creatinine Urine Total Protein Vancomycin Trough Rheumatoid Factor Complement C4 Miscellaneous Test Crossmatch 09/29/16 09/29/16 09/29/16 06:45 06:45 06:45 WBC 14.9 H RBC 2.74 L Hgb 7.6 L Hct 23.2 L MCV MCH MCHC RDW 20.5 H Plt Count 81 L Lymph % (Auto) [place] % (Auto) Lymph # [place] # Baso # Seg Neutrophils % Seg Neuts % (Manual) 81.0 H Lymphocytes % (Manual) 4.0 L Monocytes % (Manual) Eosinophils % (Manual) Basophils % (Manual) Nucleated RBC % Seg Neutrophils # Seg Neutrophils # Man 12.1 H Lymphocytes # (Manual) 0.6 L Monocytes # (Manual) Eosinophils # (Manual) PT INR Fibrinogen dRVVT Confirm Interp Factor V Activity POC ABG pH POC ABG pCO2 POC ABG pO2 Sodium 133 L Potassium 3.4 L Chloride 92.5 L Carbon Dioxide 21 L BUN 33 H Creatinine 3.0 H Glucose POC Glucose Lactic Acid Calcium 6.6 L Phosphorus Magnesium 1.40 L Direct Bilirubin 0.9 H AST ALT Alkaline Phosphatase Lactate Dehydrogenase Troponin T C-Reactive Protein Total Protein 4.3 L Albumin 1.3 L Prealbumin Triglycerides Cholesterol LDL Cholesterol Direct HDL Cholesterol Urine pH Urine WBC (Auto) Urine Creatinine Urine Total Protein Vancomycin Trough Rheumatoid Factor Complement C4 Miscellaneous Test Crossmatch 09/29/16 09/29/16 09/30/16 17:52 20:12 00:07 WBC RBC Hgb Hct MCV MCH MCHC RDW Plt Count Lymph % (Auto) [place] % (Auto) Lymph # [place] # Baso # Seg Neutrophils % Seg Neuts % (Manual) Lymphocytes % (Manual) Monocytes % (Manual) Eosinophils % (Manual) Basophils % (Manual) Nucleated RBC % Seg Neutrophils # Seg Neutrophils # Man Lymphocytes # (Manual) Monocytes # (Manual) Eosinophils # (Manual) PT INR Fibrinogen dRVVT Confirm Interp Factor V Activity POC ABG pH POC ABG pCO2 POC ABG pO2 Sodium Potassium Chloride Carbon Dioxide BUN Creatinine Glucose POC Glucose 50 L 51 L Lactic Acid Calcium Phosphorus Magnesium Direct Bilirubin AST ALT Alkaline Phosphatase Lactate Dehydrogenase Troponin T 0.204 H* C-Reactive Protein Total Protein Albumin Prealbumin Triglycerides Cholesterol 31 L LDL Cholesterol Direct 4 L HDL Cholesterol 3 L Urine pH Urine WBC (Auto) Urine Creatinine Urine Total Protein Vancomycin Trough Rheumatoid Factor Complement C4 Miscellaneous Test Crossmatch 09/30/16 09/30/16 09/30/16 01:30 05:15 06:10 WBC RBC Hgb Hct MCV MCH MCHC RDW Plt Count Lymph % (Auto) [place] % (Auto) Lymph # [place] # Baso # Seg Neutrophils % Seg Neuts % (Manual) Lymphocytes % (Manual) Monocytes % (Manual) Eosinophils % (Manual) Basophils % (Manual) Nucleated RBC % Seg Neutrophils # Seg Neutrophils # Man Lymphocytes # (Manual) Monocytes # (Manual) Eosinophils # (Manual) PT INR Fibrinogen dRVVT Confirm Interp Factor V Activity POC ABG pH POC ABG pCO2 POC ABG pO2 Sodium 133 L Potassium 3.2 L Chloride 93.2 L Carbon Dioxide 19 L BUN 36 H Creatinine 3.2 H Glucose 104 H POC Glucose 167 H 146 H Lactic Acid Calcium 6.4 L Phosphorus Magnesium 1.60 L Direct Bilirubin AST ALT Alkaline Phosphatase Lactate Dehydrogenase Troponin T C-Reactive Protein Total Protein Albumin Prealbumin Triglycerides Cholesterol LDL Cholesterol Direct HDL Cholesterol Urine pH Urine WBC (Auto) Urine Creatinine Urine Total Protein Vancomycin Trough Rheumatoid Factor Complement C4 Miscellaneous Test Crossmatch 09/30/16 09/30/16 09/30/16 11:26 13:39 18:38 WBC RBC Hgb Hct MCV MCH MCHC RDW Plt Count Lymph % (Auto) [place] % (Auto) Lymph # [place] # Baso # Seg Neutrophils % Seg Neuts % (Manual) Lymphocytes % (Manual) Monocytes % (Manual) Eosinophils % (Manual) Basophils % (Manual) Nucleated RBC % Seg Neutrophils # Seg Neutrophils # Man Lymphocytes # (Manual) Monocytes # (Manual) Eosinophils # (Manual) PT INR Fibrinogen dRVVT Confirm Interp Factor V Activity POC ABG pH 7.479 H POC ABG pCO2 29.8 L POC ABG pO2 117 H Sodium Potassium Chloride Carbon Dioxide BUN Creatinine Glucose POC Glucose 140 H 122 H Lactic Acid Calcium Phosphorus Magnesium Direct Bilirubin AST ALT Alkaline Phosphatase Lactate Dehydrogenase Troponin T C-Reactive Protein Total Protein Albumin Prealbumin Triglycerides Cholesterol LDL Cholesterol Direct HDL Cholesterol Urine pH Urine WBC (Auto) Urine Creatinine Urine Total Protein Vancomycin Trough Rheumatoid Factor Complement C4 Miscellaneous Test Crossmatch 10/01/16 10/01/16 10/01/16 06:00 06:00 12:37 WBC 12.6 H RBC 2.75 L Hgb 7.3 L Hct 23.3 L MCV MCH 27 L MCHC RDW 20.6 H Plt Count 72 L Lymph % (Auto) [place] % (Auto) Lymph # [place] # Baso # Seg Neutrophils % Seg Neuts % (Manual) 31.0 L Lymphocytes % (Manual) 8.0 L Monocytes % (Manual) Eosinophils % (Manual) Basophils % (Manual) Nucleated RBC % 3.0 H Seg Neutrophils # Seg Neutrophils # Man Lymphocytes # (Manual) 1.0 L Monocytes # (Manual) Eosinophils # (Manual) PT INR Fibrinogen dRVVT Confirm Interp Factor V Activity POC ABG pH POC ABG pCO2 POC ABG pO2 Sodium 127 L Potassium Chloride 86.8 L Carbon Dioxide 20 L BUN 42 H Creatinine 3.5 H Glucose POC Glucose 65 L Lactic Acid Calcium 7.0 L Phosphorus Magnesium Direct Bilirubin AST ALT Alkaline Phosphatase Lactate Dehydrogenase Troponin T C-Reactive Protein Total Protein Albumin Prealbumin Triglycerides Cholesterol LDL Cholesterol Direct HDL Cholesterol Urine pH Urine WBC (Auto) Urine Creatinine Urine Total Protein Vancomycin Trough Rheumatoid Factor Complement C4 Miscellaneous Test Crossmatch 10/01/16 10/01/16 10/02/16 17:39 23:32 00:59 WBC RBC Hgb Hct MCV MCH MCHC RDW Plt Count Lymph % (Auto) [place] % (Auto) Lymph # [place] # Baso # Seg Neutrophils % Seg Neuts % (Manual) Lymphocytes % (Manual) Monocytes % (Manual) Eosinophils % (Manual) Basophils % (Manual) Nucleated RBC % Seg Neutrophils # Seg Neutrophils # Man Lymphocytes # (Manual) Monocytes # (Manual) Eosinophils # (Manual) PT INR Fibrinogen dRVVT Confirm Interp Factor V Activity POC ABG pH POC ABG pCO2 POC ABG pO2 Sodium Potassium Chloride Carbon Dioxide BUN Creatinine Glucose POC Glucose 107 H 52 L 145 H Lactic Acid Calcium Phosphorus Magnesium Direct Bilirubin AST ALT Alkaline Phosphatase Lactate Dehydrogenase Troponin T C-Reactive Protein Total Protein Albumin Prealbumin Triglycerides Cholesterol LDL Cholesterol Direct HDL Cholesterol Urine pH Urine WBC (Auto) Urine Creatinine Urine Total Protein Vancomycin Trough Rheumatoid Factor Complement C4 Miscellaneous Test Crossmatch 10/02/16 10/02/16 10/02/16 10:30 10:50 10:50 WBC 14.7 H RBC 2.76 L Hgb 7.4 L Hct 23.6 L MCV MCH 27 L MCHC RDW 20.2 H Plt Count 79 L Lymph % (Auto) [place] % (Auto) Lymph # [place] # Baso # Seg Neutrophils % Seg Neuts % (Manual) 86.0 H Lymphocytes % (Manual) 6.0 L Monocytes % (Manual) Eosinophils % (Manual) Basophils % (Manual) Nucleated RBC % Seg Neutrophils # Seg Neutrophils # Man 12.6 H Lymphocytes # (Manual) 0.9 L Monocytes # (Manual) Eosinophils # (Manual) PT INR Fibrinogen dRVVT Confirm Interp Factor V Activity POC ABG pH 7.486 H POC ABG pCO2 30.1 L POC ABG pO2 108 H Sodium 131 L Potassium 3.4 L Chloride 89.9 L Carbon Dioxide BUN 26 H Creatinine 2.6 H Glucose POC Glucose Lactic Acid Calcium 7.0 L Phosphorus Magnesium Direct Bilirubin AST ALT Alkaline Phosphatase Lactate Dehydrogenase Troponin T C-Reactive Protein Total Protein Albumin Prealbumin Triglycerides Cholesterol LDL Cholesterol Direct HDL Cholesterol Urine pH Urine WBC (Auto) Urine Creatinine Urine Total Protein Vancomycin Trough Rheumatoid Factor Complement C4 Miscellaneous Test Crossmatch 10/02/16 10/03/16 10/03/16 23:45 00:45 05:10 WBC 12.9 H RBC 2.77 L Hgb 7.6 L Hct 23.7 L MCV MCH 27 L MCHC RDW 19.7 H Plt Count 89 L Lymph % (Auto) [place] % (Auto) Lymph # [place] # Baso # Seg Neutrophils % Seg Neuts % (Manual) Lymphocytes % (Manual) 8.0 L Monocytes % (Manual) Eosinophils % (Manual) Basophils % (Manual) Nucleated RBC % Seg Neutrophils # 11.9 H Seg Neutrophils # Man Lymphocytes # (Manual) 1.0 L Monocytes # (Manual) Eosinophils # (Manual) PT INR Fibrinogen dRVVT Confirm Interp Factor V Activity POC ABG pH POC ABG pCO2 POC ABG pO2 Sodium Potassium Chloride Carbon Dioxide BUN Creatinine Glucose POC Glucose 55 L 199 H Lactic Acid Calcium Phosphorus Magnesium Direct Bilirubin AST ALT Alkaline Phosphatase Lactate Dehydrogenase Troponin T C-Reactive Protein Total Protein Albumin Prealbumin Triglycerides Cholesterol LDL Cholesterol Direct HDL Cholesterol Urine pH Urine WBC (Auto) Urine Creatinine Urine Total Protein Vancomycin Trough Rheumatoid Factor Complement C4 Miscellaneous Test Crossmatch 10/03/16 10/03/16 10/03/16 05:10 12:14 13:18 WBC RBC Hgb Hct MCV MCH MCHC RDW Plt Count Lymph % (Auto) [place] % (Auto) Lymph # [place] # Baso # Seg Neutrophils % Seg Neuts % (Manual) Lymphocytes % (Manual) Monocytes % (Manual) Eosinophils % (Manual) Basophils % (Manual) Nucleated RBC % Seg Neutrophils # Seg Neutrophils # Man Lymphocytes # (Manual) Monocytes # (Manual) Eosinophils # (Manual) PT INR Fibrinogen dRVVT Confirm Interp Factor V Activity POC ABG pH POC ABG pCO2 POC ABG pO2 Sodium 129 L Potassium 3.3 L Chloride 88.8 L Carbon Dioxide 20 L BUN 29 H Creatinine 2.8 H Glucose POC Glucose 68 L 127 H Lactic Acid Calcium 7.2 L Phosphorus Magnesium Direct Bilirubin AST ALT Alkaline Phosphatase Lactate Dehydrogenase Troponin T C-Reactive Protein Total Protein Albumin Prealbumin Triglycerides Cholesterol LDL Cholesterol Direct HDL Cholesterol Urine pH Urine WBC (Auto) Urine Creatinine Urine Total Protein Vancomycin Trough Rheumatoid Factor Complement C4 Miscellaneous Test Crossmatch 10/03/16 10/03/1610/03/17 14:42 18:21 19:09 WBC RBC Hgb Hct MCV MCH MCHC RDW Plt Count Lymph % (Auto) [place] % (Auto) Lymph # [place] # Baso # Seg Neutrophils % Seg Neuts % (Manual) Lymphocytes % (Manual) Monocytes % (Manual) Eosinophils % (Manual) Basophils % (Manual) Nucleated RBC % Seg Neutrophils # Seg Neutrophils # Man Lymphocytes # (Manual) Monocytes # (Manual) Eosinophils # (Manual) PT INR Fibrinogen dRVVT Confirm Interp Factor V Activity POC ABG pH 7.499 H POC ABG pCO2 28.4 L POC ABG pO2 44 L Sodium Potassium Chloride Carbon Dioxide BUN Creatinine Glucose POC Glucose 64 L 205 H Lactic Acid Calcium Phosphorus Magnesium Direct Bilirubin AST ALT Alkaline Phosphatase Lactate Dehydrogenase Troponin T C-Reactive Protein Total Protein Albumin Prealbumin Triglycerides Cholesterol LDL Cholesterol Direct HDL Cholesterol Urine pH Urine WBC (Auto) Urine Creatinine Urine Total Protein Vancomycin Trough Rheumatoid Factor Complement C4 Miscellaneous Test Crossmatch 10/03/16 10/04/16 10/04/16 23:33 04:18 06:30 WBC RBC 2.54 L Hgb 7.1 L Hct 21.7 L MCV MCH MCHC RDW 19.5 H Plt Count 76 L Lymph % (Auto) [place] % (Auto) Lymph # [place] # Baso # Seg Neutrophils % Seg Neuts % (Manual) 88.0 H Lymphocytes % (Manual) 6.0 L Monocytes % (Manual) Eosinophils % (Manual) Basophils % (Manual) Nucleated RBC % Seg Neutrophils # Seg Neutrophils # Man 8.8 H Lymphocytes # (Manual) 0.6 L Monocytes # (Manual) Eosinophils # (Manual) PT INR Fibrinogen dRVVT Confirm Interp Factor V Activity POC ABG pH 7.461 H POC ABG pCO2 33.6 L POC ABG pO2 211 H Sodium Potassium Chloride Carbon Dioxide BUN Creatinine Glucose POC Glucose 136 H Lactic Acid Calcium Phosphorus Magnesium Direct Bilirubin AST ALT Alkaline Phosphatase Lactate Dehydrogenase Troponin T C-Reactive Protein Total Protein Albumin Prealbumin Triglycerides Cholesterol LDL Cholesterol Direct HDL Cholesterol Urine pH Urine WBC (Auto) Urine Creatinine Urine Total Protein Vancomycin Trough Rheumatoid Factor Complement C4 Miscellaneous Test Crossmatch 10/04/16 10/04/16 10/04/16 06:30 11:45 17:54 WBC RBC Hgb Hct MCV MCH MCHC RDW Plt Count Lymph % (Auto) [place] % (Auto) Lymph # [place] # Baso # Seg Neutrophils % Seg Neuts % (Manual) Lymphocytes % (Manual) Monocytes % (Manual) Eosinophils % (Manual) Basophils % (Manual) Nucleated RBC % Seg Neutrophils # Seg Neutrophils # Man Lymphocytes # (Manual) Monocytes # (Manual) Eosinophils # (Manual) PT INR Fibrinogen dRVVT Confirm Interp Factor V Activity POC ABG pH POC ABG pCO2 POC ABG pO2 Sodium 128 L Potassium Chloride 87.4 L Carbon Dioxide 20 L BUN 34 H Creatinine 2.9 H Glucose 127 H POC Glucose 158 H 160 H Lactic Acid Calcium 7.4 L Phosphorus Magnesium Direct Bilirubin AST ALT Alkaline Phosphatase Lactate Dehydrogenase Troponin T C-Reactive Protein Total Protein Albumin Prealbumin Triglycerides Cholesterol LDL Cholesterol Direct HDL Cholesterol Urine pH Urine WBC (Auto) Urine Creatinine Urine Total Protein Vancomycin Trough Rheumatoid Factor Complement C4 Miscellaneous Test Crossmatch 10/04/16 10/05/16 10/05/16 23:25 04:30 05:00 WBC RBC 2.64 L Hgb 7.5 L Hct 22.6 L MCV MCH MCHC RDW 19.3 H Plt Count 80 L Lymph % (Auto) [place] % (Auto) Lymph # [place] # Baso # Seg Neutrophils % Seg Neuts % (Manual) Lymphocytes % (Manual) 12.0 L Monocytes % (Manual) Eosinophils % (Manual) Basophils % (Manual) Nucleated RBC % Seg Neutrophils # Seg Neutrophils # Man Lymphocytes # (Manual) Monocytes # (Manual) Eosinophils # (Manual) PT INR Fibrinogen dRVVT Confirm Interp Factor V Activity POC ABG pH 7.475 H POC ABG pCO2 33.3 L POC ABG pO2 140 H Sodium Potassium Chloride Carbon Dioxide BUN Creatinine Glucose POC Glucose 141 H Lactic Acid Calcium Phosphorus Magnesium Direct Bilirubin AST ALT Alkaline Phosphatase Lactate Dehydrogenase Troponin T C-Reactive Protein Total Protein Albumin Prealbumin Triglycerides Cholesterol LDL Cholesterol Direct HDL Cholesterol Urine pH Urine WBC (Auto) Urine Creatinine Urine Total Protein Vancomycin Trough Rheumatoid Factor Complement C4 Miscellaneous Test Crossmatch 10/05/16 10/05/16 10/05/16 05:00 05:09 12:58 WBC RBC Hgb Hct MCV MCH MCHC RDW Plt Count Lymph % (Auto) [place] % (Auto) Lymph # [place] # Baso # Seg Neutrophils % Seg Neuts % (Manual) Lymphocytes % (Manual) Monocytes % (Manual) Eosinophils % (Manual) Basophils % (Manual) Nucleated RBC % Seg Neutrophils # Seg Neutrophils # Man Lymphocytes # (Manual) Monocytes # (Manual) Eosinophils # (Manual) PT INR Fibrinogen dRVVT Confirm Interp Factor V Activity POC ABG pH POC ABG pCO2 POC ABG pO2 Sodium 131 L Potassium Chloride 94.0 L Carbon Dioxide 20 L BUN 22 H Creatinine 2.0 H Glucose 123 H POC Glucose 166 H 179 H Lactic Acid Calcium 7.7 L Phosphorus 2.20 L D Magnesium Direct Bilirubin AST ALT Alkaline Phosphatase Lactate Dehydrogenase Troponin T C-Reactive Protein Total Protein Albumin Prealbumin Triglycerides Cholesterol LDL Cholesterol Direct HDL Cholesterol Urine pH Urine WBC (Auto) Urine Creatinine Urine Total Protein Vancomycin Trough Rheumatoid Factor Complement C4 Miscellaneous Test Crossmatch 10/05/16 10/05/16 10/05/16 15:50 18:53 23:12 WBC RBC Hgb Hct MCV MCH MCHC RDW Plt Count Lymph % (Auto) [place] % (Auto) Lymph # [place] # Baso # Seg Neutrophils % Seg Neuts % (Manual) Lymphocytes % (Manual) Monocytes % (Manual) Eosinophils % (Manual) Basophils % (Manual) Nucleated RBC % Seg Neutrophils # Seg Neutrophils # Man Lymphocytes # (Manual) Monocytes # (Manual) Eosinophils # (Manual) PT INR Fibrinogen dRVVT Confirm Interp Factor V Activity POC ABG pH POC ABG pCO2 POC ABG pO2 Sodium Potassium Chloride Carbon Dioxide BUN Creatinine Glucose POC Glucose 150 H 164 H Lactic Acid Calcium Phosphorus Magnesium Direct Bilirubin AST ALT Alkaline Phosphatase Lactate Dehydrogenase Troponin T C-Reactive Protein Total Protein Albumin Prealbumin Triglycerides Cholesterol LDL Cholesterol Direct HDL Cholesterol Urine pH Urine WBC (Auto) Urine Creatinine Urine Total Protein Vancomycin Trough Rheumatoid Factor Complement C4 Miscellaneous Test Crossmatch See Detail 10/06/16 10/06/16 10/06/16 03:50 03:50 04:53 WBC RBC 3.00 L Hgb 8.6 L Hct 25.8 L MCV MCH MCHC RDW 17.9 H Plt Count 65 L Lymph % (Auto) [place] % (Auto) Lymph # [place] # Baso # Seg Neutrophils % Seg Neuts % (Manual) 30.0 L Lymphocytes % (Manual) 5.0 L Monocytes % (Manual) Eosinophils % (Manual) Basophils % (Manual) Nucleated RBC % Seg Neutrophils # Seg Neutrophils # Man Lymphocytes # (Manual) 0.4 L Monocytes # (Manual) Eosinophils # (Manual) PT INR Fibrinogen dRVVT Confirm Interp Factor V Activity POC ABG pH 7.310 L POC ABG pCO2 49.0 H POC ABG pO2 Sodium 133 L Potassium Chloride 95.9 L Carbon Dioxide BUN 26 H Creatinine 2.0 H Glucose 116 H POC Glucose Lactic Acid Calcium 7.8 L Phosphorus Magnesium Direct Bilirubin AST ALT Alkaline Phosphatase Lactate Dehydrogenase Troponin T C-Reactive Protein Total Protein Albumin Prealbumin Triglycerides Cholesterol LDL Cholesterol Direct HDL Cholesterol Urine pH Urine WBC (Auto) Urine Creatinine Urine Total Protein Vancomycin Trough Rheumatoid Factor Complement C4 Miscellaneous Test Crossmatch 10/06/16 10/06/16 10/06/16 05:23 11:52 18:34 WBC RBC Hgb Hct MCV MCH MCHC RDW Plt Count Lymph % (Auto) [place] % (Auto) Lymph # [place] # Baso # Seg Neutrophils % Seg Neuts % (Manual) Lymphocytes % (Manual) Monocytes % (Manual) Eosinophils % (Manual) Basophils % (Manual) Nucleated RBC % Seg Neutrophils # Seg Neutrophils # Man Lymphocytes # (Manual) Monocytes # (Manual) Eosinophils # (Manual) PT INR Fibrinogen dRVVT Confirm Interp Factor V Activity POC ABG pH POC ABG pCO2 POC ABG pO2 Sodium Potassium Chloride Carbon Dioxide BUN Creatinine Glucose POC Glucose 126 H 116 H 129 H Lactic Acid Calcium Phosphorus Magnesium Direct Bilirubin AST ALT Alkaline Phosphatase Lactate Dehydrogenase Troponin T C-Reactive Protein Total Protein Albumin Prealbumin Triglycerides Cholesterol LDL Cholesterol Direct HDL Cholesterol Urine pH Urine WBC (Auto) Urine Creatinine Urine Total Protein Vancomycin Trough Rheumatoid Factor Complement C4 Miscellaneous Test Crossmatch 10/07/16 10/07/16 10/07/16 03:45 05:00 10:00 WBC 17.0 H RBC 2.68 L Hgb 7.3 L Hct 25.3 L MCV MCH 27 L MCHC 29 L RDW 19.6 H Plt Count 74 L Lymph % (Auto) [place] % (Auto) Lymph # [place] # Baso # Seg Neutrophils % Seg Neuts % (Manual) Lymphocytes % (Manual) 12.0 L Monocytes % (Manual) Eosinophils % (Manual) Basophils % (Manual) Nucleated RBC % 4.0 H Seg Neutrophils # Seg Neutrophils # Man 10.7 H Lymphocytes # (Manual) Monocytes # (Manual) Eosinophils # (Manual) PT INR Fibrinogen dRVVT Confirm Interp Factor V Activity POC ABG pH POC ABG pCO2 POC ABG pO2 Sodium 130 L Potassium 3.2 L Chloride 93.9 L Carbon Dioxide 20 L BUN 44 H Creatinine 2.7 H Glucose 129 H POC Glucose Lactic Acid Calcium 7.4 L Phosphorus Magnesium Direct Bilirubin AST ALT 6 L Alkaline Phosphatase 195 H Lactate Dehydrogenase Troponin T C-Reactive Protein Total Protein 4.9 L Albumin 1.0 L Prealbumin Triglycerides Cholesterol LDL Cholesterol Direct HDL Cholesterol Urine pH Urine WBC (Auto) Urine Creatinine Urine Total Protein Vancomycin Trough Rheumatoid Factor Complement C4 Miscellaneous Test Flexitest 1 H Crossmatch 10/07/16 10/07/16 10/07/16 10:00 11:24 18:10 WBC RBC Hgb Hct MCV MCH MCHC RDW Plt Count Lymph % (Auto) [place] % (Auto) Lymph # [place] # Baso # Seg Neutrophils % Seg Neuts % (Manual) Lymphocytes % (Manual) Monocytes % (Manual) Eosinophils % (Manual) Basophils % (Manual) Nucleated RBC % Seg Neutrophils # Seg Neutrophils # Man Lymphocytes # (Manual) Monocytes # (Manual) Eosinophils # (Manual) PT INR Fibrinogen dRVVT Confirm Interp Factor V Activity POC ABG pH POC ABG pCO2 POC ABG pO2 Sodium Potassium Chloride Carbon Dioxide BUN Creatinine Glucose POC Glucose 116 H 130 H Lactic Acid Calcium Phosphorus Magnesium Direct Bilirubin AST ALT Alkaline Phosphatase Lactate Dehydrogenase Troponin T C-Reactive Protein 19.40 H Total Protein Albumin Prealbumin Triglycerides Cholesterol LDL Cholesterol Direct HDL Cholesterol Urine pH Urine WBC (Auto) Urine Creatinine Urine Total Protein Vancomycin Trough Rheumatoid Factor Complement C4 Miscellaneous Test Crossmatch 10/07/16 10/08/16 10/08/16 18:30 00:00 04:00 WBC RBC Hgb Hct MCV MCH MCHC RDW Plt Count Lymph % (Auto) [place] % (Auto) Lymph # [place] # Baso # Seg Neutrophils % Seg Neuts % (Manual) Lymphocytes % (Manual) Monocytes % (Manual) Eosinophils % (Manual) Basophils % (Manual) Nucleated RBC % Seg Neutrophils # Seg Neutrophils # Man Lymphocytes # (Manual) Monocytes # (Manual) Eosinophils # (Manual) PT INR Fibrinogen dRVVT Confirm Interp Factor V Activity POC ABG pH POC ABG pCO2 POC ABG pO2 Sodium 132 L Potassium 3.3 L Chloride 93.6 L Carbon Dioxide 17 L BUN 59 H Creatinine 2.7 H Glucose 121 H POC Glucose 122 H Lactic Acid Calcium 7.6 L Phosphorus Magnesium Direct Bilirubin AST ALT Alkaline Phosphatase Lactate Dehydrogenase Troponin T C-Reactive Protein Total Protein Albumin Prealbumin Triglycerides Cholesterol LDL Cholesterol Direct HDL Cholesterol Urine pH Urine WBC (Auto) > 182.0 H Urine Creatinine Urine Total Protein Vancomycin Trough Rheumatoid Factor Complement C4 Miscellaneous Test Crossmatch 10/08/16 10/08/16 10/08/16 04:30 05:30 11:51 WBC RBC 5.15 H Hgb 14.4 H D Hct 44.5 H D MCV MCH MCHC RDW 19.5 H Plt Count 56 L Lymph % (Auto) [place] % (Auto) Lymph # [place] # Baso # Seg Neutrophils % Seg Neuts % (Manual) 24.0 L Lymphocytes % (Manual) 8.0 L Monocytes % (Manual) Eosinophils % (Manual) Basophils % (Manual) Nucleated RBC % 9.0 H Seg Neutrophils # Seg Neutrophils # Man Lymphocytes # (Manual) 0.7 L Monocytes # (Manual) Eosinophils # (Manual) PT INR Fibrinogen dRVVT Confirm Interp Factor V Activity POC ABG pH POC ABG pCO2 POC ABG pO2 Sodium Potassium Chloride Carbon Dioxide BUN Creatinine Glucose POC Glucose 125 H 150 H Lactic Acid Calcium Phosphorus Magnesium Direct Bilirubin AST ALT Alkaline Phosphatase Lactate Dehydrogenase Troponin T C-Reactive Protein Total Protein Albumin Prealbumin Triglycerides Cholesterol LDL Cholesterol Direct HDL Cholesterol Urine pH Urine WBC (Auto) Urine Creatinine Urine Total Protein Vancomycin Trough Rheumatoid Factor Complement C4 Miscellaneous Test Crossmatch 10/08/16 10/08/16 10/08/16 12:49 17:07 19:30 WBC RBC Hgb 7.1 L D Hct 22.4 L D MCV MCH MCHC RDW Plt Count Lymph % (Auto) [place] % (Auto) Lymph # [place] # Baso # Seg Neutrophils % Seg Neuts % (Manual) Lymphocytes % (Manual) Monocytes % (Manual) Eosinophils % (Manual) Basophils % (Manual) Nucleated RBC % Seg Neutrophils # Seg Neutrophils # Man Lymphocytes # (Manual) Monocytes # (Manual) Eosinophils # (Manual) PT INR Fibrinogen dRVVT Confirm Interp Factor V Activity POC ABG pH POC ABG pCO2 28.2 L POC ABG pO2 111 H Sodium Potassium Chloride Carbon Dioxide BUN Creatinine Glucose POC Glucose 145 H Lactic Acid Calcium Phosphorus Magnesium Direct Bilirubin AST ALT Alkaline Phosphatase Lactate Dehydrogenase Troponin T C-Reactive Protein Total Protein Albumin Prealbumin Triglycerides Cholesterol LDL Cholesterol Direct HDL Cholesterol Urine pH Urine WBC (Auto) Urine Creatinine Urine Total Protein Vancomycin Trough Rheumatoid Factor Complement C4 Miscellaneous Test Crossmatch 10/08/16 10/09/16 10/09/16 19:30 03:45 03:45 WBC 12.6 H RBC 2.36 L Hgb 6.7 L Hct 21.1 L MCV MCH MCHC RDW 19.5 H Plt Count 75 L Lymph % (Auto) [place] % (Auto) Lymph # [place] # Baso # Seg Neutrophils % Seg Neuts % (Manual) Lymphocytes % (Manual) Monocytes % (Manual) 10.0 H Eosinophils % (Manual) Basophils % (Manual) Nucleated RBC % 3.0 H Seg Neutrophils # Seg Neutrophils # Man Lymphocytes # (Manual) Monocytes # (Manual) 1.3 H Eosinophils # (Manual) PT 18.0 H INR 1.41 H Fibrinogen dRVVT Confirm Interp Factor V Activity POC ABG pH POC ABG pCO2 POC ABG pO2 Sodium 135 L Potassium Chloride Carbon Dioxide 17 L BUN 81 H Creatinine 3.2 H Glucose 109 H POC Glucose Lactic Acid Calcium 7.4 L Phosphorus 4.60 H D Magnesium Direct Bilirubin AST ALT Alkaline Phosphatase Lactate Dehydrogenase Troponin T C-Reactive Protein Total Protein Albumin Prealbumin Triglycerides Cholesterol LDL Cholesterol Direct HDL Cholesterol Urine pH Urine WBC (Auto) Urine Creatinine Urine Total Protein Vancomycin Trough Rheumatoid Factor Complement C4 Miscellaneous Test Crossmatch 10/09/16 10/09/16 10/09/16 03:45 05:14 07:20 WBC RBC Hgb Hct MCV MCH MCHC RDW Plt Count Lymph % (Auto) [place] % (Auto) Lymph # [place] # Baso # Seg Neutrophils % Seg Neuts % (Manual) Lymphocytes % (Manual) Monocytes % (Manual) Eosinophils % (Manual) Basophils % (Manual) Nucleated RBC % Seg Neutrophils # Seg Neutrophils # Man Lymphocytes # (Manual) Monocytes # (Manual) Eosinophils # (Manual) PT 19.0 H INR 1.51 H Fibrinogen dRVVT Confirm Interp Factor V Activity POC ABG pH POC ABG pCO2 POC ABG pO2 Sodium Potassium Chloride Carbon Dioxide BUN Creatinine Glucose POC Glucose 151 H Lactic Acid Calcium Phosphorus Magnesium Direct Bilirubin AST ALT Alkaline Phosphatase Lactate Dehydrogenase Troponin T C-Reactive Protein Total Protein Albumin Prealbumin Triglycerides Cholesterol LDL Cholesterol Direct HDL Cholesterol Urine pH Urine WBC (Auto) Urine Creatinine Urine Total Protein Vancomycin Trough Rheumatoid Factor Complement C4 Miscellaneous Test Crossmatch See Detail 10/09/16 10/09/16 10/09/16 11:46 16:20 16:43 WBC RBC Hgb 7.2 L Hct 22.2 L MCV MCH MCHC RDW Plt Count Lymph % (Auto) [place] % (Auto) Lymph # [place] # Baso # Seg Neutrophils % Seg Neuts % (Manual) Lymphocytes % (Manual) Monocytes % (Manual) Eosinophils % (Manual) Basophils % (Manual) Nucleated RBC % Seg Neutrophils # Seg Neutrophils # Man Lymphocytes # (Manual) Monocytes # (Manual) Eosinophils # (Manual) PT INR Fibrinogen dRVVT Confirm Interp Factor V Activity POC ABG pH POC ABG pCO2 POC ABG pO2 Sodium Potassium Chloride Carbon Dioxide BUN Creatinine Glucose POC Glucose 133 H 141 H Lactic Acid Calcium Phosphorus Magnesium Direct Bilirubin AST ALT Alkaline Phosphatase Lactate Dehydrogenase Troponin T C-Reactive Protein Total Protein Albumin Prealbumin Triglycerides Cholesterol LDL Cholesterol Direct HDL Cholesterol Urine pH Urine WBC (Auto) Urine Creatinine Urine Total Protein Vancomycin Trough Rheumatoid Factor Complement C4 Miscellaneous Test Crossmatch 10/10/16 10/10/16 10/10/16 05:00 05:00 11:19 WBC 18.5 H RBC 2.19 L Hgb 6.4 L Hct 19.6 L* MCV MCH MCHC RDW 19.3 H Plt Count 93 L Lymph % (Auto) [place] % (Auto) Lymph # [place] # Baso # Seg Neutrophils % Seg Neuts % (Manual) Lymphocytes % (Manual) 10.0 L Monocytes % (Manual) Eosinophils % (Manual) Basophils % (Manual) Nucleated RBC % 4.0 H Seg Neutrophils # Seg Neutrophils # Man 11.3 H Lymphocytes # (Manual) Monocytes # (Manual) Eosinophils # (Manual) PT INR Fibrinogen dRVVT Confirm Interp Factor V Activity POC ABG pH POC ABG pCO2 POC ABG pO2 Sodium Potassium 5.7 H D Chloride Carbon Dioxide 16 L BUN 94 H Creatinine 3.1 H Glucose 131 H POC Glucose 153 H Lactic Acid Calcium 8.2 L Phosphorus 5.10 H Magnesium 2.40 H Direct Bilirubin 0.3 H AST ALT < 5 L Alkaline Phosphatase 319 H Lactate Dehydrogenase Troponin T C-Reactive Protein Total Protein 5.1 L Albumin 1.0 L Prealbumin Triglycerides Cholesterol LDL Cholesterol Direct HDL Cholesterol Urine pH Urine WBC (Auto) Urine Creatinine Urine Total Protein Vancomycin Trough Rheumatoid Factor Complement C4 Miscellaneous Test Crossmatch 10/10/16 10/10/16 10/11/16 17:50 23:30 04:15 WBC RBC Hgb Hct MCV MCH MCHC RDW Plt Count Lymph % (Auto) [place] % (Auto) Lymph # [place] # Baso # Seg Neutrophils % Seg Neuts % (Manual) Lymphocytes % (Manual) Monocytes % (Manual) Eosinophils % (Manual) Basophils % (Manual) Nucleated RBC % Seg Neutrophils # Seg Neutrophils # Man Lymphocytes # (Manual) Monocytes # (Manual) Eosinophils # (Manual) PT INR Fibrinogen dRVVT Confirm Interp Factor V Activity POC ABG pH POC ABG pCO2 POC ABG pO2 Sodium Potassium Chloride 96.4 L Carbon Dioxide 21 L BUN 57 H Creatinine 2.1 H Glucose 151 H POC Glucose 146 H 141 H Lactic Acid Calcium 8.3 L Phosphorus Magnesium Direct Bilirubin AST ALT Alkaline Phosphatase Lactate Dehydrogenase Troponin T C-Reactive Protein Total Protein Albumin Prealbumin Triglycerides Cholesterol LDL Cholesterol Direct HDL Cholesterol Urine pH Urine WBC (Auto) Urine Creatinine Urine Total Protein Vancomycin Trough Rheumatoid Factor Complement C4 Miscellaneous Test Crossmatch 10/11/16 10/11/16 10/11/16 04:15 04:15 05:30 WBC 28.3 H RBC 3.12 L Hgb 9.3 L Hct 28.7 L D MCV MCH MCHC RDW 17.7 H Plt Count 128 L Lymph % (Auto) [place] % (Auto) Lymph # [place] # Baso # Seg Neutrophils % Seg Neuts % (Manual) Lymphocytes % (Manual) Monocytes % (Manual) Eosinophils % (Manual) Basophils % (Manual) Nucleated RBC % Seg Neutrophils # Seg Neutrophils # Man Lymphocytes # (Manual) Monocytes # (Manual) Eosinophils # (Manual) PT INR Fibrinogen dRVVT Confirm Interp Factor V Activity POC ABG pH POC ABG pCO2 POC ABG pO2 Sodium Potassium Chloride Carbon Dioxide BUN Creatinine Glucose POC Glucose 167 H Lactic Acid Calcium Phosphorus Magnesium Direct Bilirubin AST ALT Alkaline Phosphatase Lactate Dehydrogenase Troponin T C-Reactive Protein 15.80 H Total Protein Albumin Prealbumin Triglycerides Cholesterol LDL Cholesterol Direct HDL Cholesterol Urine pH Urine WBC (Auto) Urine Creatinine Urine Total Protein Vancomycin Trough Rheumatoid Factor Complement C4 Miscellaneous Test Crossmatch 10/11/16 10/11/16 10/11/16 11:40 15:49 23:57 WBC RBC Hgb Hct MCV MCH MCHC RDW Plt Count Lymph % (Auto) [place] % (Auto) Lymph # [place] # Baso # Seg Neutrophils % Seg Neuts % (Manual) Lymphocytes % (Manual) Monocytes % (Manual) Eosinophils % (Manual) Basophils % (Manual) Nucleated RBC % Seg Neutrophils # Seg Neutrophils # Man Lymphocytes # (Manual) Monocytes # (Manual) Eosinophils # (Manual) PT INR Fibrinogen dRVVT Confirm Interp Factor V Activity POC ABG pH POC ABG pCO2 POC ABG pO2 Sodium Potassium Chloride Carbon Dioxide BUN Creatinine Glucose POC Glucose 139 H 168 H 161 H Lactic Acid Calcium Phosphorus Magnesium Direct Bilirubin AST ALT Alkaline Phosphatase Lactate Dehydrogenase Troponin T C-Reactive Protein Total Protein Albumin Prealbumin Triglycerides Cholesterol LDL Cholesterol Direct HDL Cholesterol Urine pH Urine WBC (Auto) Urine Creatinine Urine Total Protein Vancomycin Trough Rheumatoid Factor Complement C4 Miscellaneous Test Crossmatch 10/12/16 10/12/16 10/12/16 04:40 04:40 05:44 WBC 22.5 H RBC 2.88 L Hgb 8.8 L Hct 26.8 L MCV MCH MCHC RDW 17.8 H Plt Count Lymph % (Auto) [place] % (Auto) Lymph # [place] # Baso # Seg Neutrophils % Seg Neuts % (Manual) Lymphocytes % (Manual) Monocytes % (Manual) Eosinophils % (Manual) Basophils % (Manual) Nucleated RBC % Seg Neutrophils # Seg Neutrophils # Man Lymphocytes # (Manual) Monocytes # (Manual) Eosinophils # (Manual) PT INR Fibrinogen dRVVT Confirm Interp Factor V Activity POC ABG pH POC ABG pCO2 POC ABG pO2 Sodium 134 L Potassium Chloride 93.0 L Carbon Dioxide BUN 74 H Creatinine 2.5 H Glucose 137 H POC Glucose 158 H Lactic Acid Calcium 8.2 L Phosphorus Magnesium Direct Bilirubin AST ALT Alkaline Phosphatase Lactate Dehydrogenase Troponin T C-Reactive Protein Total Protein Albumin Prealbumin Triglycerides Cholesterol LDL Cholesterol Direct HDL Cholesterol Urine pH Urine WBC (Auto) Urine Creatinine Urine Total Protein Vancomycin Trough Rheumatoid Factor Complement C4 Miscellaneous Test Crossmatch 10/12/16 10/12/16 10/12/16 12:27 18:18 23:46 WBC RBC Hgb Hct MCV MCH MCHC RDW Plt Count Lymph % (Auto) [place] % (Auto) Lymph # [place] # Baso # Seg Neutrophils % Seg Neuts % (Manual) Lymphocytes % (Manual) Monocytes % (Manual) Eosinophils % (Manual) Basophils % (Manual) Nucleated RBC % Seg Neutrophils # Seg Neutrophils # Man Lymphocytes # (Manual) Monocytes # (Manual) Eosinophils # (Manual) PT INR Fibrinogen dRVVT Confirm Interp Factor V Activity POC ABG pH POC ABG pCO2 POC ABG pO2 Sodium Potassium Chloride Carbon Dioxide BUN Creatinine Glucose POC Glucose 153 H 140 H 150 H Lactic Acid Calcium Phosphorus Magnesium Direct Bilirubin AST ALT Alkaline Phosphatase Lactate Dehydrogenase Troponin T C-Reactive Protein Total Protein Albumin Prealbumin Triglycerides Cholesterol LDL Cholesterol Direct HDL Cholesterol Urine pH Urine WBC (Auto) Urine Creatinine Urine Total Protein Vancomycin Trough Rheumatoid Factor Complement C4 Miscellaneous Test Crossmatch 10/13/16 10/13/16 10/13/16 06:22 09:20 12:29 WBC RBC Hgb Hct MCV MCH MCHC RDW Plt Count Lymph % (Auto) [place] % (Auto) Lymph # [place] # Baso # Seg Neutrophils % Seg Neuts % (Manual) Lymphocytes % (Manual) Monocytes % (Manual) Eosinophils % (Manual) Basophils % (Manual) Nucleated RBC % Seg Neutrophils # Seg Neutrophils # Man Lymphocytes # (Manual) Monocytes # (Manual) Eosinophils # (Manual) PT INR Fibrinogen dRVVT Confirm Interp Factor V Activity POC ABG pH POC ABG pCO2 POC ABG pO2 Sodium Potassium Chloride Carbon Dioxide BUN Creatinine Glucose POC Glucose 165 H 193 H Lactic Acid Calcium Phosphorus Magnesium Direct Bilirubin AST ALT Alkaline Phosphatase Lactate Dehydrogenase Troponin T C-Reactive Protein Total Protein Albumin Prealbumin Triglycerides Cholesterol LDL Cholesterol Direct HDL Cholesterol Urine pH Urine WBC (Auto) Urine Creatinine Urine Total Protein Vancomycin Trough Rheumatoid Factor Complement C4 Miscellaneous Test Flexitest 1 H Crossmatch 10/13/16 10/13/16 10/13/16 18:09 Unknown Unknown WBC 23.4 H RBC 2.83 L Hgb 8.7 L Hct 26.1 L MCV MCH MCHC RDW 18.1 H Plt Count Lymph % (Auto) [place] % (Auto) Lymph # [place] # Baso # Seg Neutrophils % Seg Neuts % (Manual) Lymphocytes % (Manual) Monocytes % (Manual) Eosinophils % (Manual) Basophils % (Manual) Nucleated RBC % Seg Neutrophils # Seg Neutrophils # Man Lymphocytes # (Manual) Monocytes # (Manual) Eosinophils # (Manual) PT INR Fibrinogen dRVVT Confirm Interp Factor V Activity POC ABG pH POC ABG pCO2 POC ABG pO2 Sodium Potassium Chloride 95.8 L Carbon Dioxide BUN 82 H Creatinine 2.6 H Glucose 152 H POC Glucose 166 H Lactic Acid Calcium Phosphorus Magnesium Direct Bilirubin AST ALT Alkaline Phosphatase Lactate Dehydrogenase Troponin T C-Reactive Protein Total Protein Albumin Prealbumin Triglycerides Cholesterol LDL Cholesterol Direct HDL Cholesterol Urine pH Urine WBC (Auto) Urine Creatinine Urine Total Protein Vancomycin Trough Rheumatoid Factor Complement C4 Miscellaneous Test Crossmatch 10/14/16 10/14/16 10/14/16 05:38 06:35 08:10 WBC 20.7 H RBC 2.81 L Hgb 8.4 L Hct 27.2 L MCV MCH MCHC RDW 19.4 H Plt Count Lymph % (Auto) [place] % (Auto) Lymph # [place] # Baso # Seg Neutrophils % Seg Neuts % (Manual) Lymphocytes % (Manual) Monocytes % (Manual) Eosinophils % (Manual) Basophils % (Manual) Nucleated RBC % Seg Neutrophils # Seg Neutrophils # Man Lymphocytes # (Manual) Monocytes # (Manual) Eosinophils # (Manual) PT INR Fibrinogen dRVVT Confirm Interp Factor V Activity POC ABG pH POC ABG pCO2 POC ABG pO2 Sodium Potassium Chloride Carbon Dioxide BUN 58 H Creatinine 1.9 H Glucose 169 H POC Glucose 195 H Lactic Acid Calcium Phosphorus Magnesium Direct Bilirubin AST ALT Alkaline Phosphatase Lactate Dehydrogenase Troponin T C-Reactive Protein Total Protein Albumin Prealbumin Triglycerides Cholesterol LDL Cholesterol Direct HDL Cholesterol Urine pH Urine WBC (Auto) Urine Creatinine Urine Total Protein Vancomycin Trough Rheumatoid Factor Complement C4 Miscellaneous Test Crossmatch 10/14/16 10/14/16 10/14/16 11:44 17:13 23:28 WBC RBC Hgb Hct MCV MCH MCHC RDW Plt Count Lymph % (Auto) [place] % (Auto) Lymph # [place] # Baso # Seg Neutrophils % Seg Neuts % (Manual) Lymphocytes % (Manual) Monocytes % (Manual) Eosinophils % (Manual) Basophils % (Manual) Nucleated RBC % Seg Neutrophils # Seg Neutrophils # Man Lymphocytes # (Manual) Monocytes # (Manual) Eosinophils # (Manual) PT INR Fibrinogen dRVVT Confirm Interp Factor V Activity POC ABG pH POC ABG pCO2 POC ABG pO2 Sodium Potassium Chloride Carbon Dioxide BUN Creatinine Glucose POC Glucose 174 H 121 H 151 H Lactic Acid Calcium Phosphorus Magnesium Direct Bilirubin AST ALT Alkaline Phosphatase Lactate Dehydrogenase Troponin T C-Reactive Protein Total Protein Albumin Prealbumin Triglycerides Cholesterol LDL Cholesterol Direct HDL Cholesterol Urine pH Urine WBC (Auto) Urine Creatinine Urine Total Protein Vancomycin Trough Rheumatoid Factor Complement C4 Miscellaneous Test Crossmatch 10/15/16 10/15/16 10/15/16 05:06 12:26 17:48 WBC RBC Hgb Hct MCV MCH MCHC RDW Plt Count Lymph % (Auto) [place] % (Auto) Lymph # [place] # Baso # Seg Neutrophils % Seg Neuts % (Manual) Lymphocytes % (Manual) Monocytes % (Manual) Eosinophils % (Manual) Basophils % (Manual) Nucleated RBC % Seg Neutrophils # Seg Neutrophils # Man Lymphocytes # (Manual) Monocytes # (Manual) Eosinophils # (Manual) PT INR Fibrinogen dRVVT Confirm Interp Factor V Activity POC ABG pH POC ABG pCO2 POC ABG pO2 Sodium Potassium Chloride Carbon Dioxide BUN Creatinine Glucose POC Glucose 151 H 149 H 153 H Lactic Acid Calcium Phosphorus Magnesium Direct Bilirubin AST ALT Alkaline Phosphatase Lactate Dehydrogenase Troponin T C-Reactive Protein Total Protein Albumin Prealbumin Triglycerides Cholesterol LDL Cholesterol Direct HDL Cholesterol Urine pH Urine WBC (Auto) Urine Creatinine Urine Total Protein Vancomycin Trough Rheumatoid Factor Complement C4 Miscellaneous Test Crossmatch 10/15/16 10/15/16 10/16/16 Unknown Unknown 00:02 WBC 23.4 H RBC 2.78 L Hgb 8.5 L Hct 25.7 L MCV MCH MCHC RDW 18.7 H Plt Count Lymph % (Auto) [place] % (Auto) Lymph # [place] # Baso # Seg Neutrophils % Seg Neuts % (Manual) Lymphocytes % (Manual) Monocytes % (Manual) Eosinophils % (Manual) Basophils % (Manual) Nucleated RBC % Seg Neutrophils # Seg Neutrophils # Man Lymphocytes # (Manual) Monocytes # (Manual) Eosinophils # (Manual) PT INR Fibrinogen dRVVT Confirm Interp Factor V Activity POC ABG pH POC ABG pCO2 POC ABG pO2 Sodium Potassium Chloride Carbon Dioxide BUN 73 H Creatinine 2.3 H Glucose 120 H POC Glucose 137 H Lactic Acid Calcium Phosphorus Magnesium Direct Bilirubin AST ALT Alkaline Phosphatase Lactate Dehydrogenase Troponin T C-Reactive Protein Total Protein Albumin Prealbumin Triglycerides Cholesterol LDL Cholesterol Direct HDL Cholesterol Urine pH Urine WBC (Auto) Urine Creatinine Urine Total Protein Vancomycin Trough Rheumatoid Factor Complement C4 Miscellaneous Test Crossmatch 10/16/16 10/16/16 10/16/16 05:44 06:25 06:25 WBC 22.5 H RBC 2.76 L Hgb 8.3 L Hct 25.2 L MCV MCH MCHC RDW 18.3 H Plt Count Lymph % (Auto) [place] % (Auto) Lymph # [place] # Baso # Seg Neutrophils % Seg Neuts % (Manual) Lymphocytes % (Manual) Monocytes % (Manual) Eosinophils % (Manual) Basophils % (Manual) Nucleated RBC % Seg Neutrophils # Seg Neutrophils # Man Lymphocytes # (Manual) Monocytes # (Manual) Eosinophils # (Manual) PT INR Fibrinogen dRVVT Confirm Interp Factor V Activity POC ABG pH POC ABG pCO2 POC ABG pO2 Sodium Potassium Chloride Carbon Dioxide BUN 92 H Creatinine 3.0 H Glucose 138 H POC Glucose 110 H Lactic Acid Calcium Phosphorus Magnesium Direct Bilirubin AST ALT Alkaline Phosphatase Lactate Dehydrogenase Troponin T C-Reactive Protein Total Protein Albumin Prealbumin Triglycerides Cholesterol LDL Cholesterol Direct HDL Cholesterol Urine pH Urine WBC (Auto) Urine Creatinine Urine Total Protein Vancomycin Trough Rheumatoid Factor Complement C4 Miscellaneous Test Crossmatch 10/16/16 10/16/16 10/16/16 11:27 11:48 17:36 WBC RBC Hgb Hct MCV MCH MCHC RDW Plt Count Lymph % (Auto) [place] % (Auto) Lymph # [place] # Baso # Seg Neutrophils % Seg Neuts % (Manual) Lymphocytes % (Manual) Monocytes % (Manual) Eosinophils % (Manual) Basophils % (Manual) Nucleated RBC % Seg Neutrophils # Seg Neutrophils # Man Lymphocytes # (Manual) Monocytes # (Manual) Eosinophils # (Manual) PT INR Fibrinogen dRVVT Confirm Interp Factor V Activity POC ABG pH 7.582 H POC ABG pCO2 27.4 L POC ABG pO2 110 H Sodium Potassium Chloride Carbon Dioxide BUN Creatinine Glucose POC Glucose 121 H 133 H Lactic Acid Calcium Phosphorus Magnesium Direct Bilirubin AST ALT Alkaline Phosphatase Lactate Dehydrogenase Troponin T C-Reactive Protein Total Protein Albumin Prealbumin Triglycerides Cholesterol LDL Cholesterol Direct HDL Cholesterol Urine pH Urine WBC (Auto) Urine Creatinine Urine Total Protein Vancomycin Trough Rheumatoid Factor Complement C4 Miscellaneous Test Crossmatch 10/16/16 10/17/16 10/17/16 20:48 04:24 04:24 WBC 21.4 H RBC 2.72 L Hgb 8.0 L Hct 25.2 L MCV MCH MCHC RDW 18.0 H Plt Count Lymph % (Auto) [place] % (Auto) Lymph # [place] # Baso # Seg Neutrophils % Seg Neuts % (Manual) Lymphocytes % (Manual) Monocytes % (Manual) Eosinophils % (Manual) Basophils % (Manual) Nucleated RBC % Seg Neutrophils # Seg Neutrophils # Man Lymphocytes # (Manual) Monocytes # (Manual) Eosinophils # (Manual) PT INR Fibrinogen dRVVT Confirm Interp Factor V Activity POC ABG pH 7.561 H POC ABG pCO2 24.4 L POC ABG pO2 77 L Sodium 148 H Potassium Chloride Carbon Dioxide BUN 104 H Creatinine 3.0 H Glucose 149 H POC Glucose Lactic Acid Calcium Phosphorus Magnesium Direct Bilirubin AST ALT Alkaline Phosphatase 138 H Lactate Dehydrogenase Troponin T C-Reactive Protein Total Protein 6.2 L Albumin 1.5 L Prealbumin Triglycerides Cholesterol LDL Cholesterol Direct HDL Cholesterol Urine pH Urine WBC (Auto) Urine Creatinine Urine Total Protein Vancomycin Trough Rheumatoid Factor Complement C4 Miscellaneous Test Crossmatch 10/17/16 10/17/16 10/17/16 06:02 12:17 17:14 WBC RBC Hgb Hct MCV MCH MCHC RDW Plt Count Lymph % (Auto) [place] % (Auto) Lymph # [place] # Baso # Seg Neutrophils % Seg Neuts % (Manual) Lymphocytes % (Manual) Monocytes % (Manual) Eosinophils % (Manual) Basophils % (Manual) Nucleated RBC % Seg Neutrophils # Seg Neutrophils # Man Lymphocytes # (Manual) Monocytes # (Manual) Eosinophils # (Manual) PT INR Fibrinogen dRVVT Confirm Interp Factor V Activity POC ABG pH POC ABG pCO2 POC ABG pO2 Sodium Potassium Chloride Carbon Dioxide BUN Creatinine Glucose POC Glucose 170 H 167 H 126 H Lactic Acid Calcium Phosphorus Magnesium Direct Bilirubin AST ALT Alkaline Phosphatase Lactate Dehydrogenase Troponin T C-Reactive Protein Total Protein Albumin Prealbumin Triglycerides Cholesterol LDL Cholesterol Direct HDL Cholesterol Urine pH Urine WBC (Auto) Urine Creatinine Urine Total Protein Vancomycin Trough Rheumatoid Factor Complement C4 Miscellaneous Test Crossmatch 10/17/16 10/18/16 10/18/16 23:17 04:00 04:00 WBC 20.7 H RBC 2.47 L Hgb 7.4 L Hct 22.9 L MCV MCH MCHC RDW 17.5 H Plt Count Lymph % (Auto) [place] % (Auto) Lymph # [place] # Baso # Seg Neutrophils % Seg Neuts % (Manual) Lymphocytes % (Manual) Monocytes % (Manual) Eosinophils % (Manual) Basophils % (Manual) Nucleated RBC % Seg Neutrophils # Seg Neutrophils # Man Lymphocytes # (Manual) Monocytes # (Manual) Eosinophils # (Manual) PT INR Fibrinogen dRVVT Confirm Interp Factor V Activity POC ABG pH POC ABG pCO2 POC ABG pO2 Sodium 149 H Potassium Chloride 107.9 H Carbon Dioxide 20 L BUN 117 H Creatinine 3.2 H Glucose 119 H POC Glucose 121 H Lactic Acid Calcium Phosphorus Magnesium Direct Bilirubin AST ALT Alkaline Phosphatase Lactate Dehydrogenase Troponin T C-Reactive Protein Total Protein Albumin Prealbumin Triglycerides Cholesterol LDL Cholesterol Direct HDL Cholesterol Urine pH Urine WBC (Auto) Urine Creatinine Urine Total Protein Vancomycin Trough Rheumatoid Factor Complement C4 Miscellaneous Test Crossmatch 10/18/16 10/18/16 10/18/16 05:23 10:46 17:30 WBC RBC Hgb Hct MCV MCH MCHC RDW Plt Count Lymph % (Auto) [place] % (Auto) Lymph # [place] # Baso # Seg Neutrophils % Seg Neuts % (Manual) Lymphocytes % (Manual) Monocytes % (Manual) Eosinophils % (Manual) Basophils % (Manual) Nucleated RBC % Seg Neutrophils # Seg Neutrophils # Man Lymphocytes # (Manual) Monocytes # (Manual) Eosinophils # (Manual) PT INR Fibrinogen dRVVT Confirm Interp Factor V Activity POC ABG pH POC ABG pCO2 POC ABG pO2 Sodium Potassium Chloride Carbon Dioxide BUN Creatinine Glucose POC Glucose 119 H 155 H 124 H Lactic Acid Calcium Phosphorus Magnesium Direct Bilirubin AST ALT Alkaline Phosphatase Lactate Dehydrogenase Troponin T C-Reactive Protein Total Protein Albumin Prealbumin Triglycerides Cholesterol LDL Cholesterol Direct HDL Cholesterol Urine pH Urine WBC (Auto) Urine Creatinine Urine Total Protein Vancomycin Trough Rheumatoid Factor Complement C4 Miscellaneous Test Crossmatch 10/19/16 10/19/16 10/19/16 04:00 04:00 05:25 WBC 17.4 H RBC 2.54 L Hgb 7.7 L Hct 23.6 L MCV MCH MCHC RDW 17.3 H Plt Count Lymph % (Auto) [place] % (Auto) Lymph # [place] # Baso # Seg Neutrophils % Seg Neuts % (Manual) Lymphocytes % (Manual) Monocytes % (Manual) Eosinophils % (Manual) Basophils % (Manual) Nucleated RBC % Seg Neutrophils # Seg Neutrophils # Man Lymphocytes # (Manual) Monocytes # (Manual) Eosinophils # (Manual) PT INR Fibrinogen dRVVT Confirm Interp Factor V Activity POC ABG pH POC ABG pCO2 POC ABG pO2 Sodium Potassium Chloride Carbon Dioxide BUN 72 H Creatinine 2.1 H Glucose 116 H POC Glucose 119 H Lactic Acid Calcium Phosphorus Magnesium Direct Bilirubin AST ALT Alkaline Phosphatase Lactate Dehydrogenase Troponin T C-Reactive Protein Total Protein Albumin Prealbumin Triglycerides Cholesterol LDL Cholesterol Direct HDL Cholesterol Urine pH Urine WBC (Auto) Urine Creatinine Urine Total Protein Vancomycin Trough Rheumatoid Factor Complement C4 Miscellaneous Test Crossmatch 10/19/16 10/19/16 10/20/16 11:46 23:59 06:00 WBC RBC Hgb Hct MCV MCH MCHC RDW Plt Count Lymph % (Auto) [place] % (Auto) Lymph # [place] # Baso # Seg Neutrophils % Seg Neuts % (Manual) Lymphocytes % (Manual) Monocytes % (Manual) Eosinophils % (Manual) Basophils % (Manual) Nucleated RBC % Seg Neutrophils # Seg Neutrophils # Man Lymphocytes # (Manual) Monocytes # (Manual) Eosinophils # (Manual) PT INR Fibrinogen dRVVT Confirm Interp Factor V Activity POC ABG pH POC ABG pCO2 POC ABG pO2 Sodium Potassium Chloride Carbon Dioxide 17 L BUN 94 H Creatinine 2.7 H Glucose POC Glucose 116 H 117 H Lactic Acid Calcium Phosphorus Magnesium Direct Bilirubin AST ALT Alkaline Phosphatase Lactate Dehydrogenase Troponin T C-Reactive Protein Total Protein Albumin Prealbumin Triglycerides Cholesterol LDL Cholesterol Direct HDL Cholesterol Urine pH Urine WBC (Auto) Urine Creatinine Urine Total Protein Vancomycin Trough Rheumatoid Factor Complement C4 Miscellaneous Test Crossmatch 10/20/16 10/20/16 10/20/16 06:00 11:49 16:00 WBC 19.7 H RBC 2.51 L Hgb 7.7 L Hct 23.5 L MCV MCH MCHC RDW 17.5 H Plt Count Lymph % (Auto) [place] % (Auto) Lymph # [place] # Baso # Seg Neutrophils % Seg Neuts % (Manual) Lymphocytes % (Manual) Monocytes % (Manual) Eosinophils % (Manual) Basophils % (Manual) Nucleated RBC % Seg Neutrophils # Seg Neutrophils # Man Lymphocytes # (Manual) Monocytes # (Manual) Eosinophils # (Manual) PT INR Fibrinogen dRVVT Confirm Interp Factor V Activity POC ABG pH POC ABG pCO2 POC ABG pO2 Sodium Potassium Chloride Carbon Dioxide BUN Creatinine Glucose POC Glucose 117 H Lactic Acid Calcium Phosphorus Magnesium Direct Bilirubin AST ALT Alkaline Phosphatase Lactate Dehydrogenase Troponin T C-Reactive Protein Total Protein Albumin Prealbumin Triglycerides Cholesterol LDL Cholesterol Direct HDL Cholesterol Urine pH Urine WBC (Auto) Urine Creatinine Urine Total Protein Vancomycin Trough Rheumatoid Factor Complement C4 Miscellaneous Test Flexitest 1 H Crossmatch 10/20/16 10/20/16 10/21/16 18:36 23:39 04:00 WBC RBC Hgb Hct MCV MCH MCHC RDW Plt Count Lymph % (Auto) [place] % (Auto) Lymph # [place] # Baso # Seg Neutrophils % Seg Neuts % (Manual) Lymphocytes % (Manual) Monocytes % (Manual) Eosinophils % (Manual) Basophils % (Manual) Nucleated RBC % Seg Neutrophils # Seg Neutrophils # Man Lymphocytes # (Manual) Monocytes # (Manual) Eosinophils # (Manual) PT INR Fibrinogen dRVVT Confirm Interp Factor V Activity POC ABG pH POC ABG pCO2 POC ABG pO2 Sodium Potassium 5.4 H D Chloride Carbon Dioxide 15 L BUN 110 H Creatinine 3.0 H Glucose POC Glucose 127 H 114 H Lactic Acid Calcium Phosphorus Magnesium Direct Bilirubin AST ALT Alkaline Phosphatase Lactate Dehydrogenase Troponin T C-Reactive Protein Total Protein Albumin Prealbumin Triglycerides Cholesterol LDL Cholesterol Direct HDL Cholesterol Urine pH Urine WBC (Auto) Urine Creatinine Urine Total Protein Vancomycin Trough Rheumatoid Factor Complement C4 Miscellaneous Test Crossmatch 10/21/16 10/21/16 10/22/16 05:54 23:46 05:18 WBC RBC Hgb Hct MCV MCH MCHC RDW Plt Count Lymph % (Auto) [place] % (Auto) Lymph # [place] # Baso # Seg Neutrophils % Seg Neuts % (Manual) Lymphocytes % (Manual) Monocytes % (Manual) Eosinophils % (Manual) Basophils % (Manual) Nucleated RBC % Seg Neutrophils # Seg Neutrophils # Man Lymphocytes # (Manual) Monocytes # (Manual) Eosinophils # (Manual) PT INR Fibrinogen dRVVT Confirm Interp Factor V Activity POC ABG pH POC ABG pCO2 POC ABG pO2 Sodium Potassium Chloride Carbon Dioxide BUN Creatinine Glucose POC Glucose 119 H 108 H 109 H Lactic Acid Calcium Phosphorus Magnesium Direct Bilirubin AST ALT Alkaline Phosphatase Lactate Dehydrogenase Troponin T C-Reactive Protein Total Protein Albumin Prealbumin Triglycerides Cholesterol LDL Cholesterol Direct HDL Cholesterol Urine pH Urine WBC (Auto) Urine Creatinine Urine Total Protein Vancomycin Trough Rheumatoid Factor Complement C4 Miscellaneous Test Crossmatch 10/22/16 10/22/16 10/22/16 06:40 06:40 06:40 WBC 14.0 H RBC 2.03 L Hgb 7.0 L Hct 20.5 L MCV 98 H MCH 34 H MCHC 35 H RDW 17.8 H Plt Count Lymph % (Auto) [place] % (Auto) 9.9 H Lymph # [place] # 1.4 H Baso # 0.2 H Seg Neutrophils % 72.0 H Seg Neuts % (Manual) Lymphocytes % (Manual) Monocytes % (Manual) Eosinophils % (Manual) Basophils % (Manual) Nucleated RBC % Seg Neutrophils # 10.0 H Seg Neutrophils # Man Lymphocytes # (Manual) Monocytes # (Manual) Eosinophils # (Manual) PT INR Fibrinogen dRVVT Confirm Interp Factor V Activity POC ABG pH POC ABG pCO2 POC ABG pO2 Sodium 130 L D Potassium Chloride 92.4 L Carbon Dioxide 20 L BUN 50 H Creatinine 1.6 H Glucose 589 H* POC Glucose Lactic Acid Calcium 7.8 L D Phosphorus Magnesium 1.60 L Direct Bilirubin AST ALT Alkaline Phosphatase Lactate Dehydrogenase Troponin T C-Reactive Protein Total Protein Albumin Prealbumin Triglycerides Cholesterol LDL Cholesterol Direct HDL Cholesterol Urine pH Urine WBC (Auto) Urine Creatinine Urine Total Protein Vancomycin Trough Rheumatoid Factor Complement C4 Miscellaneous Test Crossmatch 10/22/16 10/22/16 10/22/16 11:39 16:44 23:36 WBC RBC Hgb Hct MCV MCH MCHC RDW Plt Count Lymph % (Auto) [place] % (Auto) Lymph # [place] # Baso # Seg Neutrophils % Seg Neuts % (Manual) Lymphocytes % (Manual) Monocytes % (Manual) Eosinophils % (Manual) Basophils % (Manual) Nucleated RBC % Seg Neutrophils # Seg Neutrophils # Man Lymphocytes # (Manual) Monocytes # (Manual) Eosinophils # (Manual) PT INR Fibrinogen dRVVT Confirm Interp Factor V Activity POC ABG pH POC ABG pCO2 POC ABG pO2 Sodium Potassium Chloride Carbon Dioxide BUN Creatinine Glucose POC Glucose 142 H 163 H 123 H Lactic Acid Calcium Phosphorus Magnesium Direct Bilirubin AST ALT Alkaline Phosphatase Lactate Dehydrogenase Troponin T C-Reactive Protein Total Protein Albumin Prealbumin Triglycerides Cholesterol LDL Cholesterol Direct HDL Cholesterol Urine pH Urine WBC (Auto) Urine Creatinine Urine Total Protein Vancomycin Trough Rheumatoid Factor Complement C4 Miscellaneous Test Crossmatch 10/23/16 10/23/16 10/23/16 04:58 06:00 12:12 WBC RBC Hgb Hct MCV MCH MCHC RDW Plt Count Lymph % (Auto) [place] % (Auto) Lymph # [place] # Baso # Seg Neutrophils % Seg Neuts % (Manual) Lymphocytes % (Manual) Monocytes % (Manual) Eosinophils % (Manual) Basophils % (Manual) Nucleated RBC % Seg Neutrophils # Seg Neutrophils # Man Lymphocytes # (Manual) Monocytes # (Manual) Eosinophils # (Manual) PT INR Fibrinogen dRVVT Confirm Interp Factor V Activity POC ABG pH POC ABG pCO2 POC ABG pO2 Sodium 133 L Potassium 3.5 L Chloride 96.1 L Carbon Dioxide 18 L BUN 76 H Creatinine 2.1 H Glucose POC Glucose 133 H 138 H Lactic Acid Calcium 8.3 L Phosphorus Magnesium Direct Bilirubin AST ALT Alkaline Phosphatase Lactate Dehydrogenase Troponin T C-Reactive Protein Total Protein Albumin Prealbumin Triglycerides Cholesterol LDL Cholesterol Direct HDL Cholesterol Urine pH Urine WBC (Auto) Urine Creatinine Urine Total Protein Vancomycin Trough Rheumatoid Factor Complement C4 Miscellaneous Test Crossmatch 10/23/16 10/23/16 10/24/16 16:53 23:37 04:00 WBC RBC Hgb Hct MCV MCH MCHC RDW Plt Count Lymph % (Auto) [place] % (Auto) Lymph # [place] # Baso # Seg Neutrophils % Seg Neuts % (Manual) Lymphocytes % (Manual) Monocytes % (Manual) Eosinophils % (Manual) Basophils % (Manual) Nucleated RBC % Seg Neutrophils # Seg Neutrophils # Man Lymphocytes # (Manual) Monocytes # (Manual) Eosinophils # (Manual) PT INR Fibrinogen dRVVT Confirm Interp Factor V Activity POC ABG pH POC ABG pCO2 POC ABG pO2 Sodium 131 L Potassium Chloride 94.5 L Carbon Dioxide 19 L BUN 97 H Creatinine 2.6 H Glucose 110 H POC Glucose 125 H 123 H Lactic Acid Calcium 8.3 L Phosphorus Magnesium Direct Bilirubin AST ALT Alkaline Phosphatase Lactate Dehydrogenase Troponin T C-Reactive Protein Total Protein Albumin Prealbumin Triglycerides Cholesterol LDL Cholesterol Direct HDL Cholesterol Urine pH Urine WBC (Auto) Urine Creatinine Urine Total Protein Vancomycin Trough Rheumatoid Factor Complement C4 Miscellaneous Test Crossmatch 10/24/16 10/24/16 10/24/16 07:49 11:39 17:52 WBC RBC Hgb 6.0 L Hct 19.7 L* MCV MCH MCHC RDW Plt Count Lymph % (Auto) [place] % (Auto) Lymph # [place] # Baso # Seg Neutrophils % Seg Neuts % (Manual) Lymphocytes % (Manual) Monocytes % (Manual) Eosinophils % (Manual) Basophils % (Manual) Nucleated RBC % Seg Neutrophils # Seg Neutrophils # Man Lymphocytes # (Manual) Monocytes # (Manual) Eosinophils # (Manual) PT INR Fibrinogen dRVVT Confirm Interp Factor V Activity POC ABG pH POC ABG pCO2 POC ABG pO2 Sodium Potassium Chloride Carbon Dioxide BUN Creatinine Glucose POC Glucose 106 H 158 H Lactic Acid Calcium Phosphorus Magnesium Direct Bilirubin AST ALT Alkaline Phosphatase Lactate Dehydrogenase Troponin T C-Reactive Protein Total Protein Albumin Prealbumin Triglycerides Cholesterol LDL Cholesterol Direct HDL Cholesterol Urine pH Urine WBC (Auto) Urine Creatinine Urine Total Protein Vancomycin Trough Rheumatoid Factor Complement C4 Miscellaneous Test Crossmatch 10/24/16 10/24/16 10/24/16 20:00 22:27 Unknown WBC RBC Hgb 9.4 L D Hct 27.5 L D MCV MCH MCHC RDW Plt Count Lymph % (Auto) [place] % (Auto) Lymph # [place] # Baso # Seg Neutrophils % Seg Neuts % (Manual) Lymphocytes % (Manual) Monocytes % (Manual) Eosinophils % (Manual) Basophils % (Manual) Nucleated RBC % Seg Neutrophils # Seg Neutrophils # Man Lymphocytes # (Manual) Monocytes # (Manual) Eosinophils # (Manual) PT INR Fibrinogen dRVVT Confirm Interp Factor V Activity POC ABG pH POC ABG pCO2 POC ABG pO2 Sodium Potassium Chloride Carbon Dioxide BUN Creatinine Glucose POC Glucose 125 H Lactic Acid Calcium Phosphorus Magnesium Direct Bilirubin AST ALT Alkaline Phosphatase Lactate Dehydrogenase Troponin T C-Reactive Protein Total Protein Albumin Prealbumin Triglycerides Cholesterol LDL Cholesterol Direct HDL Cholesterol Urine pH Urine WBC (Auto) Urine Creatinine Urine Total Protein Vancomycin Trough Rheumatoid Factor Complement C4 Miscellaneous Test Crossmatch See Detail 10/25/16 10/25/16 10/25/16 04:00 04:00 04:00 WBC 14.2 H RBC 2.98 L Hgb 9.0 L Hct 26.2 L MCV MCH MCHC RDW 16.6 H Plt Count Lymph % (Auto) [place] % (Auto) 10.7 H Lymph # [place] # 1.5 H Baso # Seg Neutrophils % 73.6 H Seg Neuts % (Manual) Lymphocytes % (Manual) Monocytes % (Manual) Eosinophils % (Manual) Basophils % (Manual) Nucleated RBC % Seg Neutrophils # 10.5 H Seg Neutrophils # Man Lymphocytes # (Manual) Monocytes # (Manual) Eosinophils # (Manual) PT INR Fibrinogen dRVVT Confirm Interp Factor V Activity POC ABG pH POC ABG pCO2 POC ABG pO2 Sodium 132 L Potassium Chloride 94.7 L Carbon Dioxide BUN 51 H Creatinine 1.6 H Glucose 130 H POC Glucose Lactic Acid Calcium 8.3 L Phosphorus 1.60 L D Magnesium Direct Bilirubin AST ALT Alkaline Phosphatase Lactate Dehydrogenase Troponin T C-Reactive Protein Total Protein Albumin Prealbumin Triglycerides Cholesterol LDL Cholesterol Direct HDL Cholesterol Urine pH Urine WBC (Auto) Urine Creatinine Urine Total Protein Vancomycin Trough Rheumatoid Factor Complement C4 Miscellaneous Test Crossmatch 10/25/16 10/25/16 10/25/16 04:32 11:48 17:22 WBC RBC Hgb Hct MCV MCH MCHC RDW Plt Count Lymph % (Auto) [place] % (Auto) Lymph # [place] # Baso # Seg Neutrophils % Seg Neuts % (Manual) Lymphocytes % (Manual) Monocytes % (Manual) Eosinophils % (Manual) Basophils % (Manual) Nucleated RBC % Seg Neutrophils # Seg Neutrophils # Man Lymphocytes # (Manual) Monocytes # (Manual) Eosinophils # (Manual) PT INR Fibrinogen dRVVT Confirm Interp Factor V Activity POC ABG pH POC ABG pCO2 POC ABG pO2 Sodium Potassium Chloride Carbon Dioxide BUN Creatinine Glucose POC Glucose 124 H 171 H 120 H Lactic Acid Calcium Phosphorus Magnesium Direct Bilirubin AST ALT Alkaline Phosphatase Lactate Dehydrogenase Troponin T C-Reactive Protein Total Protein Albumin Prealbumin Triglycerides Cholesterol LDL Cholesterol Direct HDL Cholesterol Urine pH Urine WBC (Auto) Urine Creatinine Urine Total Protein Vancomycin Trough Rheumatoid Factor Complement C4 Miscellaneous Test Crossmatch 10/26/16 10/26/16 10/26/16 04:54 07:06 07:06 WBC 16.9 H RBC 3.06 L Hgb 9.1 L Hct 26.9 L MCV MCH MCHC RDW 16.9 H Plt Count Lymph % (Auto) [place] % (Auto) Lymph # [place] # Baso # Seg Neutrophils % Seg Neuts % (Manual) 71.0 H Lymphocytes % (Manual) 5.0 L Monocytes % (Manual) 12.0 H Eosinophils % (Manual) Basophils % (Manual) Nucleated RBC % Seg Neutrophils # Seg Neutrophils # Man 12.0 H Lymphocytes # (Manual) 0.8 L Monocytes # (Manual) 2.0 H Eosinophils # (Manual) PT INR Fibrinogen dRVVT Confirm Interp Factor V Activity POC ABG pH POC ABG pCO2 POC ABG pO2 Sodium 135 L Potassium Chloride 97.1 L Carbon Dioxide BUN 73 H Creatinine 2.2 H Glucose 117 H POC Glucose 123 H Lactic Acid Calcium Phosphorus 1.70 L Magnesium Direct Bilirubin AST ALT Alkaline Phosphatase Lactate Dehydrogenase Troponin T C-Reactive Protein Total Protein Albumin Prealbumin Triglycerides Cholesterol LDL Cholesterol Direct HDL Cholesterol Urine pH Urine WBC (Auto) Urine Creatinine Urine Total Protein Vancomycin Trough Rheumatoid Factor Complement C4 Miscellaneous Test Crossmatch 10/26/16 10/26/16 10/26/16 12:12 17:29 23:42 WBC RBC Hgb Hct MCV MCH MCHC RDW Plt Count Lymph % (Auto) [place] % (Auto) Lymph # [place] # Baso # Seg Neutrophils % Seg Neuts % (Manual) Lymphocytes % (Manual) Monocytes % (Manual) Eosinophils % (Manual) Basophils % (Manual) Nucleated RBC % Seg Neutrophils # Seg Neutrophils # Man Lymphocytes # (Manual) Monocytes # (Manual) Eosinophils # (Manual) PT INR Fibrinogen dRVVT Confirm Interp Factor V Activity POC ABG pH POC ABG pCO2 POC ABG pO2 Sodium Potassium Chloride Carbon Dioxide BUN Creatinine Glucose POC Glucose 126 H 161 H 118 H Lactic Acid Calcium Phosphorus Magnesium Direct Bilirubin AST ALT Alkaline Phosphatase Lactate Dehydrogenase Troponin T C-Reactive Protein Total Protein Albumin Prealbumin Triglycerides Cholesterol LDL Cholesterol Direct HDL Cholesterol Urine pH Urine WBC (Auto) Urine Creatinine Urine Total Protein Vancomycin Trough Rheumatoid Factor Complement C4 Miscellaneous Test Crossmatch 10/27/16 10/27/16 10/27/16 05:03 06:30 06:30 WBC 13.9 H RBC 3.09 L Hgb 9.2 L Hct 27.5 L MCV MCH MCHC RDW 17.0 H Plt Count Lymph % (Auto) [place] % (Auto) Lymph # [place] # Baso # Seg Neutrophils % Seg Neuts % (Manual) 78.0 H Lymphocytes % (Manual) Monocytes % (Manual) Eosinophils % (Manual) Basophils % (Manual) Nucleated RBC % 2.0 H Seg Neutrophils # Seg Neutrophils # Man 10.8 H Lymphocytes # (Manual) Monocytes # (Manual) 1.0 H Eosinophils # (Manual) PT INR Fibrinogen dRVVT Confirm Interp Factor V Activity POC ABG pH POC ABG pCO2 POC ABG pO2 Sodium Potassium Chloride Carbon Dioxide BUN 40 H Creatinine 1.5 H Glucose 135 H POC Glucose 107 H Lactic Acid Calcium 8.3 L Phosphorus 1.30 L D Magnesium Direct Bilirubin AST ALT Alkaline Phosphatase Lactate Dehydrogenase Troponin T C-Reactive Protein Total Protein Albumin Prealbumin Triglycerides Cholesterol LDL Cholesterol Direct HDL Cholesterol Urine pH Urine WBC (Auto) Urine Creatinine Urine Total Protein Vancomycin Trough Rheumatoid Factor Complement C4 Miscellaneous Test Crossmatch 10/27/16 10/27/16 10/27/16 13:27 18:07 23:40 WBC RBC Hgb Hct MCV MCH MCHC RDW Plt Count Lymph % (Auto) [place] % (Auto) Lymph # [place] # Baso # Seg Neutrophils % Seg Neuts % (Manual) Lymphocytes % (Manual) Monocytes % (Manual) Eosinophils % (Manual) Basophils % (Manual) Nucleated RBC % Seg Neutrophils # Seg Neutrophils # Man Lymphocytes # (Manual) Monocytes # (Manual) Eosinophils # (Manual) PT INR Fibrinogen dRVVT Confirm Interp Factor V Activity POC ABG pH POC ABG pCO2 POC ABG pO2 Sodium Potassium Chloride Carbon Dioxide BUN Creatinine Glucose POC Glucose 117 H 121 H 118 H Lactic Acid Calcium Phosphorus Magnesium Direct Bilirubin AST ALT Alkaline Phosphatase Lactate Dehydrogenase Troponin T C-Reactive Protein Total Protein Albumin Prealbumin Triglycerides Cholesterol LDL Cholesterol Direct HDL Cholesterol Urine pH Urine WBC (Auto) Urine Creatinine Urine Total Protein Vancomycin Trough Rheumatoid Factor Complement C4 Miscellaneous Test Crossmatch 10/28/16 10/28/16 10/28/16 05:48 06:45 06:45 WBC 14.7 H RBC 3.05 L Hgb 9.0 L Hct 26.9 L MCV MCH MCHC RDW 16.8 H Plt Count Lymph % (Auto) 8.2 L [place] % (Auto) 8.4 H Lymph # [place] # 1.2 H Baso # Seg Neutrophils % 81.9 H Seg Neuts % (Manual) Lymphocytes % (Manual) Monocytes % (Manual) Eosinophils % (Manual) Basophils % (Manual) Nucleated RBC % Seg Neutrophils # 12.1 H Seg Neutrophils # Man Lymphocytes # (Manual) Monocytes # (Manual) Eosinophils # (Manual) PT INR Fibrinogen dRVVT Confirm Interp Factor V Activity POC ABG pH POC ABG pCO2 POC ABG pO2 Sodium Potassium Chloride Carbon Dioxide BUN 60 H Creatinine 1.9 H Glucose 120 H POC Glucose 114 H Lactic Acid Calcium Phosphorus Magnesium Direct Bilirubin AST ALT Alkaline Phosphatase Lactate Dehydrogenase Troponin T C-Reactive Protein Total Protein Albumin Prealbumin Triglycerides Cholesterol LDL Cholesterol Direct HDL Cholesterol Urine pH Urine WBC (Auto) Urine Creatinine Urine Total Protein Vancomycin Trough Rheumatoid Factor Complement C4 Miscellaneous Test Crossmatch 10/28/16 10/28/16 10/29/16 17:08 23:50 05:10 WBC RBC Hgb Hct MCV MCH MCHC RDW Plt Count Lymph % (Auto) [place] % (Auto) Lymph # [place] # Baso # Seg Neutrophils % Seg Neuts % (Manual) Lymphocytes % (Manual) Monocytes % (Manual) Eosinophils % (Manual) Basophils % (Manual) Nucleated RBC % Seg Neutrophils # Seg Neutrophils # Man Lymphocytes # (Manual) Monocytes # (Manual) Eosinophils # (Manual) PT INR Fibrinogen dRVVT Confirm Interp Factor V Activity POC ABG pH POC ABG pCO2 POC ABG pO2 Sodium Potassium Chloride Carbon Dioxide BUN Creatinine Glucose POC Glucose 109 H 110 H 124 H Lactic Acid Calcium Phosphorus Magnesium Direct Bilirubin AST ALT Alkaline Phosphatase Lactate Dehydrogenase Troponin T C-Reactive Protein Total Protein Albumin Prealbumin Triglycerides Cholesterol LDL Cholesterol Direct HDL Cholesterol Urine pH Urine WBC (Auto) Urine Creatinine Urine Total Protein Vancomycin Trough Rheumatoid Factor Complement C4 Miscellaneous Test Crossmatch 10/29/16 10/29/16 10/29/16 07:45 07:45 12:19 WBC 14.7 H RBC 3.15 L Hgb 9.3 L Hct 28.9 L MCV MCH MCHC RDW 17.0 H Plt Count Lymph % (Auto) 11.9 L [place] % (Auto) 8.6 H Lymph # [place] # 1.3 H Baso # Seg Neutrophils % 78.1 H Seg Neuts % (Manual) Lymphocytes % (Manual) Monocytes % (Manual) Eosinophils % (Manual) Basophils % (Manual) Nucleated RBC % Seg Neutrophils # 11.4 H Seg Neutrophils # Man Lymphocytes # (Manual) Monocytes # (Manual) Eosinophils # (Manual) PT INR Fibrinogen dRVVT Confirm Interp Factor V Activity POC ABG pH POC ABG pCO2 POC ABG pO2 Sodium Potassium 5.1 H Chloride Carbon Dioxide 19 L BUN 78 H Creatinine 2.2 H Glucose 116 H POC Glucose 118 H Lactic Acid Calcium Phosphorus Magnesium Direct Bilirubin AST ALT Alkaline Phosphatase Lactate Dehydrogenase Troponin T C-Reactive Protein Total Protein Albumin Prealbumin Triglycerides Cholesterol LDL Cholesterol Direct HDL Cholesterol Urine pH Urine WBC (Auto) Urine Creatinine Urine Total Protein Vancomycin Trough Rheumatoid Factor Complement C4 Miscellaneous Test Crossmatch 10/29/16 10/30/16 10/30/16 17:49 01:52 03:28 WBC RBC Hgb Hct MCV MCH MCHC RDW Plt Count Lymph % (Auto) [place] % (Auto) Lymph # [place] # Baso # Seg Neutrophils % Seg Neuts % (Manual) Lymphocytes % (Manual) Monocytes % (Manual) Eosinophils % (Manual) Basophils % (Manual) Nucleated RBC % Seg Neutrophils # Seg Neutrophils # Man Lymphocytes # (Manual) Monocytes # (Manual) Eosinophils # (Manual) PT INR Fibrinogen dRVVT Confirm Interp Factor V Activity POC ABG pH POC ABG pCO2 POC ABG pO2 Sodium Potassium 5.4 H Chloride 97.5 L Carbon Dioxide 19 L BUN 90 H Creatinine 2.5 H Glucose POC Glucose 120 H 129 H Lactic Acid Calcium Phosphorus 5.20 H Magnesium Direct Bilirubin AST ALT Alkaline Phosphatase Lactate Dehydrogenase Troponin T C-Reactive Protein Total Protein Albumin Prealbumin Triglycerides Cholesterol LDL Cholesterol Direct HDL Cholesterol Urine pH Urine WBC (Auto) Urine Creatinine Urine Total Protein Vancomycin Trough Rheumatoid Factor Complement C4 Miscellaneous Test Crossmatch 10/30/16 10/30/16 10/30/16 03:28 08:19 08:19 WBC 11.6 H 15.9 H RBC 2.75 L 2.82 L Hgb 7.9 L 8.3 L Hct 24.2 L 25.2 L MCV MCH MCHC RDW 16.7 H 17.2 H Plt Count Lymph % (Auto) [place] % (Auto) 9.8 H Lymph # [place] # 1.1 H Baso # Seg Neutrophils % 74.2 H Seg Neuts % (Manual) Lymphocytes % (Manual) Monocytes % (Manual) Eosinophils % (Manual) Basophils % (Manual) Nucleated RBC % Seg Neutrophils # 8.6 H Seg Neutrophils # Man Lymphocytes # (Manual) Monocytes # (Manual) Eosinophils # (Manual) PT INR Fibrinogen dRVVT Confirm Interp Factor V Activity POC ABG pH POC ABG pCO2 POC ABG pO2 Sodium Potassium 5.3 H Chloride 97.4 L Carbon Dioxide 19 L BUN 93 H Creatinine 2.6 H Glucose POC Glucose Lactic Acid Calcium Phosphorus Magnesium Direct Bilirubin AST ALT Alkaline Phosphatase Lactate Dehydrogenase Troponin T C-Reactive Protein Total Protein Albumin Prealbumin Triglycerides Cholesterol LDL Cholesterol Direct HDL Cholesterol Urine pH Urine WBC (Auto) Urine Creatinine Urine Total Protein Vancomycin Trough Rheumatoid Factor Complement C4 Miscellaneous Test Crossmatch 10/30/16 10/30/16 10/31/16 17:11 23:56 00:40 WBC RBC Hgb Hct MCV MCH MCHC RDW Plt Count Lymph % (Auto) [place] % (Auto) Lymph # [place] # Baso # Seg Neutrophils % Seg Neuts % (Manual) Lymphocytes % (Manual) Monocytes % (Manual) Eosinophils % (Manual) Basophils % (Manual) Nucleated RBC % Seg Neutrophils # Seg Neutrophils # Man Lymphocytes # (Manual) Monocytes # (Manual) Eosinophils # (Manual) PT INR Fibrinogen dRVVT Confirm Interp Factor V Activity POC ABG pH POC ABG pCO2 POC ABG pO2 Sodium Potassium Chloride Carbon Dioxide BUN Creatinine Glucose POC Glucose 106 H 117 H 120 H Lactic Acid Calcium Phosphorus Magnesium Direct Bilirubin AST ALT Alkaline Phosphatase Lactate Dehydrogenase Troponin T C-Reactive Protein Total Protein Albumin Prealbumin Triglycerides Cholesterol LDL Cholesterol Direct HDL Cholesterol Urine pH Urine WBC (Auto) Urine Creatinine Urine Total Protein Vancomycin Trough Rheumatoid Factor Complement C4 Miscellaneous Test Crossmatch 10/31/16 10/31/16 10/31/16 05:43 07:15 07:15 WBC 12.1 H RBC 2.63 L Hgb 7.7 L Hct 23.3 L MCV MCH MCHC RDW 16.7 H Plt Count Lymph % (Auto) 11.7 L [place] % (Auto) 7.7 H Lymph # [place] # 0.9 H Baso # Seg Neutrophils % 78.0 H Seg Neuts % (Manual) Lymphocytes % (Manual) Monocytes % (Manual) Eosinophils % (Manual) Basophils % (Manual) Nucleated RBC % Seg Neutrophils # 9.4 H Seg Neutrophils # Man Lymphocytes # (Manual) Monocytes # (Manual) Eosinophils # (Manual) PT INR Fibrinogen dRVVT Confirm Interp Factor V Activity POC ABG pH POC ABG pCO2 POC ABG pO2 Sodium Potassium Chloride 96.4 L Carbon Dioxide 21 L BUN 99 H Creatinine 2.6 H Glucose 144 H POC Glucose 125 H Lactic Acid Calcium Phosphorus 4.80 H Magnesium Direct Bilirubin AST ALT Alkaline Phosphatase Lactate Dehydrogenase Troponin T C-Reactive Protein Total Protein Albumin Prealbumin Triglycerides Cholesterol LDL Cholesterol Direct HDL Cholesterol Urine pH Urine WBC (Auto) Urine Creatinine Urine Total Protein Vancomycin Trough Rheumatoid Factor Complement C4 Miscellaneous Test Crossmatch 10/31/16 10/31/16 11/01/16 11:46 18:34 00:20 WBC RBC Hgb Hct MCV MCH MCHC RDW Plt Count Lymph % (Auto) [place] % (Auto) Lymph # [place] # Baso # Seg Neutrophils % Seg Neuts % (Manual) Lymphocytes % (Manual) Monocytes % (Manual) Eosinophils % (Manual) Basophils % (Manual) Nucleated RBC % Seg Neutrophils # Seg Neutrophils # Man Lymphocytes # (Manual) Monocytes # (Manual) Eosinophils # (Manual) PT INR Fibrinogen dRVVT Confirm Interp Factor V Activity POC ABG pH POC ABG pCO2 POC ABG pO2 Sodium Potassium Chloride Carbon Dioxide BUN Creatinine Glucose POC Glucose 159 H 140 H 132 H Lactic Acid Calcium Phosphorus Magnesium Direct Bilirubin AST ALT Alkaline Phosphatase Lactate Dehydrogenase Troponin T C-Reactive Protein Total Protein Albumin Prealbumin Triglycerides Cholesterol LDL Cholesterol Direct HDL Cholesterol Urine pH Urine WBC (Auto) Urine Creatinine Urine Total Protein Vancomycin Trough Rheumatoid Factor Complement C4 Miscellaneous Test Crossmatch 11/01/16 11/01/16 11/01/16 04:55 04:55 06:11 WBC 11.2 H RBC 2.68 L Hgb 7.5 L Hct 23.7 L MCV MCH MCHC RDW 16.1 H Plt Count Lymph % (Auto) [place] % (Auto) 9.8 H Lymph # [place] # 1.1 H Baso # Seg Neutrophils % 70.8 H Seg Neuts % (Manual) Lymphocytes % (Manual) Monocytes % (Manual) Eosinophils % (Manual) Basophils % (Manual) Nucleated RBC % Seg Neutrophils # 7.9 H Seg Neutrophils # Man Lymphocytes # (Manual) Monocytes # (Manual) Eosinophils # (Manual) PT INR Fibrinogen dRVVT Confirm Interp Factor V Activity POC ABG pH POC ABG pCO2 POC ABG pO2 Sodium Potassium 3.3 L D Chloride Carbon Dioxide BUN 61 H Creatinine 1.9 H Glucose 114 H POC Glucose 115 H Lactic Acid Calcium Phosphorus 1.80 L D Magnesium Direct Bilirubin AST ALT Alkaline Phosphatase Lactate Dehydrogenase Troponin T C-Reactive Protein Total Protein Albumin Prealbumin Triglycerides Cholesterol LDL Cholesterol Direct HDL Cholesterol Urine pH Urine WBC (Auto) Urine Creatinine Urine Total Protein Vancomycin Trough Rheumatoid Factor Complement C4 Miscellaneous Test Crossmatch 11/01/16 11/01/16 11/01/16 12:29 18:23 23:58 WBC RBC Hgb Hct MCV MCH MCHC RDW Plt Count Lymph % (Auto) [place] % (Auto) Lymph # [place] # Baso # Seg Neutrophils % Seg Neuts % (Manual) Lymphocytes % (Manual) Monocytes % (Manual) Eosinophils % (Manual) Basophils % (Manual) Nucleated RBC % Seg Neutrophils # Seg Neutrophils # Man Lymphocytes # (Manual) Monocytes # (Manual) Eosinophils # (Manual) PT INR Fibrinogen dRVVT Confirm Interp Factor V Activity POC ABG pH POC ABG pCO2 POC ABG pO2 Sodium Potassium Chloride Carbon Dioxide BUN Creatinine Glucose POC Glucose 142 H 143 H 128 H Lactic Acid Calcium Phosphorus Magnesium Direct Bilirubin AST ALT Alkaline Phosphatase Lactate Dehydrogenase Troponin T C-Reactive Protein Total Protein Albumin Prealbumin Triglycerides Cholesterol LDL Cholesterol Direct HDL Cholesterol Urine pH Urine WBC (Auto) Urine Creatinine Urine Total Protein Vancomycin Trough Rheumatoid Factor Complement C4 Miscellaneous Test Crossmatch 11/02/16 11/02/16 11/02/16 04:16 05:29 11:58 WBC RBC Hgb Hct MCV MCH MCHC RDW Plt Count Lymph % (Auto) [place] % (Auto) Lymph # [place] # Baso # Seg Neutrophils % Seg Neuts % (Manual) Lymphocytes % (Manual) Monocytes % (Manual) Eosinophils % (Manual) Basophils % (Manual) Nucleated RBC % Seg Neutrophils # Seg Neutrophils # Man Lymphocytes # (Manual) Monocytes # (Manual) Eosinophils # (Manual) PT INR Fibrinogen dRVVT Confirm Interp Factor V Activity POC ABG pH POC ABG pCO2 POC ABG pO2 Sodium Potassium 3.1 L Chloride Carbon Dioxide BUN 73 H Creatinine 2.3 H Glucose 112 H POC Glucose 135 H 149 H Lactic Acid Calcium Phosphorus Magnesium Direct Bilirubin AST ALT Alkaline Phosphatase Lactate Dehydrogenase Troponin T C-Reactive Protein Total Protein Albumin Prealbumin Triglycerides Cholesterol LDL Cholesterol Direct HDL Cholesterol Urine pH Urine WBC (Auto) Urine Creatinine Urine Total Protein Vancomycin Trough Rheumatoid Factor Complement C4 Miscellaneous Test Crossmatch 11/02/16 11/02/16 11/03/16 17:42 22:54 06:00 WBC RBC Hgb Hct MCV MCH MCHC RDW Plt Count Lymph % (Auto) [place] % (Auto) Lymph # [place] # Baso # Seg Neutrophils % Seg Neuts % (Manual) Lymphocytes % (Manual) Monocytes % (Manual) Eosinophils % (Manual) Basophils % (Manual) Nucleated RBC % Seg Neutrophils # Seg Neutrophils # Man Lymphocytes # (Manual) Monocytes # (Manual) Eosinophils # (Manual) PT INR Fibrinogen dRVVT Confirm Interp Factor V Activity POC ABG pH POC ABG pCO2 POC ABG pO2 Sodium Potassium Chloride 96.7 L Carbon Dioxide BUN 41 H Creatinine 1.5 H Glucose 145 H POC Glucose 182 H 115 H Lactic Acid Calcium Phosphorus 1.60 L D Magnesium 1.50 L Direct Bilirubin AST ALT Alkaline Phosphatase Lactate Dehydrogenase Troponin T C-Reactive Protein Total Protein Albumin Prealbumin Triglycerides Cholesterol LDL Cholesterol Direct HDL Cholesterol Urine pH Urine WBC (Auto) Urine Creatinine Urine Total Protein Vancomycin Trough Rheumatoid Factor Complement C4 Miscellaneous Test Crossmatch 11/03/16 11/03/16 11/03/16 11:53 17:45 23:37 WBC RBC Hgb Hct MCV MCH MCHC RDW Plt Count Lymph % (Auto) [place] % (Auto) Lymph # [place] # Baso # Seg Neutrophils % Seg Neuts % (Manual) Lymphocytes % (Manual) Monocytes % (Manual) Eosinophils % (Manual) Basophils % (Manual) Nucleated RBC % Seg Neutrophils # Seg Neutrophils # Man Lymphocytes # (Manual) Monocytes # (Manual) Eosinophils # (Manual) PT INR Fibrinogen dRVVT Confirm Interp Factor V Activity POC ABG pH POC ABG pCO2 POC ABG pO2 Sodium Potassium Chloride Carbon Dioxide BUN Creatinine Glucose POC Glucose 131 H 134 H 113 H Lactic Acid Calcium Phosphorus Magnesium Direct Bilirubin AST ALT Alkaline Phosphatase Lactate Dehydrogenase Troponin T C-Reactive Protein Total Protein Albumin Prealbumin Triglycerides Cholesterol LDL Cholesterol Direct HDL Cholesterol Urine pH Urine WBC (Auto) Urine Creatinine Urine Total Protein Vancomycin Trough Rheumatoid Factor Complement C4 Miscellaneous Test Crossmatch 11/04/16 11/04/16 11/04/16 05:41 06:00 12:10 WBC RBC Hgb Hct MCV MCH MCHC RDW Plt Count Lymph % (Auto) [place] % (Auto) Lymph # [place] # Baso # Seg Neutrophils % Seg Neuts % (Manual) Lymphocytes % (Manual) Monocytes % (Manual) Eosinophils % (Manual) Basophils % (Manual) Nucleated RBC % Seg Neutrophils # Seg Neutrophils # Man Lymphocytes # (Manual) Monocytes # (Manual) Eosinophils # (Manual) PT INR Fibrinogen dRVVT Confirm Interp Factor V Activity POC ABG pH POC ABG pCO2 POC ABG pO2 Sodium Potassium Chloride 96.7 L Carbon Dioxide BUN 52 H Creatinine 1.9 H Glucose 126 H POC Glucose 137 H 191 H Lactic Acid Calcium Phosphorus Magnesium Direct Bilirubin AST ALT Alkaline Phosphatase Lactate Dehydrogenase Troponin T C-Reactive Protein Total Protein Albumin Prealbumin Triglycerides Cholesterol LDL Cholesterol Direct HDL Cholesterol Urine pH Urine WBC (Auto) Urine Creatinine Urine Total Protein Vancomycin Trough Rheumatoid Factor Complement C4 Miscellaneous Test Crossmatch 11/04/16 11/05/16 11/05/16 22:57 03:10 05:10 WBC RBC Hgb Hct MCV MCH MCHC RDW Plt Count Lymph % (Auto) [place] % (Auto) Lymph # [place] # Baso # Seg Neutrophils % Seg Neuts % (Manual) Lymphocytes % (Manual) Monocytes % (Manual) Eosinophils % (Manual) Basophils % (Manual) Nucleated RBC % Seg Neutrophils # Seg Neutrophils # Man Lymphocytes # (Manual) Monocytes # (Manual) Eosinophils # (Manual) PT INR Fibrinogen dRVVT Confirm Interp Factor V Activity POC ABG pH POC ABG pCO2 POC ABG pO2 Sodium 136 L Potassium Chloride 97.2 L Carbon Dioxide BUN 32 H Creatinine 1.3 H Glucose 123 H POC Glucose 125 H 108 H Lactic Acid Calcium 7.8 L Phosphorus Magnesium Direct Bilirubin AST ALT Alkaline Phosphatase Lactate Dehydrogenase Troponin T C-Reactive Protein Total Protein Albumin Prealbumin Triglycerides Cholesterol LDL Cholesterol Direct HDL Cholesterol Urine pH Urine WBC (Auto) Urine Creatinine Urine Total Protein Vancomycin Trough Rheumatoid Factor Complement C4 Miscellaneous Test Crossmatch 11/05/16 11/05/16 11/05/16 12:23 13:09 13:25 WBC RBC Hgb Hct MCV MCH MCHC RDW Plt Count Lymph % (Auto) [place] % (Auto) Lymph # [place] # Baso # Seg Neutrophils % Seg Neuts % (Manual) Lymphocytes % (Manual) Monocytes % (Manual) Eosinophils % (Manual) Basophils % (Manual) Nucleated RBC % Seg Neutrophils # Seg Neutrophils # Man Lymphocytes # (Manual) Monocytes # (Manual) Eosinophils # (Manual) PT INR Fibrinogen dRVVT Confirm Interp Factor V Activity POC ABG pH POC ABG pCO2 POC ABG pO2 Sodium Potassium Chloride Carbon Dioxide BUN Creatinine Glucose POC Glucose 124 H Lactic Acid Calcium Phosphorus Magnesium Direct Bilirubin AST ALT Alkaline Phosphatase Lactate Dehydrogenase Troponin T C-Reactive Protein 11.40 H Total Protein Albumin Prealbumin Triglycerides Cholesterol LDL Cholesterol Direct HDL Cholesterol Urine pH 9.0 H Urine WBC (Auto) Urine Creatinine Urine Total Protein Vancomycin Trough Rheumatoid Factor Complement C4 Miscellaneous Test Crossmatch 11/05/16 11/05/16 11/05/16 13:25 17:54 23:42 WBC RBC Hgb Hct MCV MCH MCHC RDW Plt Count Lymph % (Auto) [place] % (Auto) Lymph # [place] # Baso # Seg Neutrophils % Seg Neuts % (Manual) Lymphocytes % (Manual) Monocytes % (Manual) Eosinophils % (Manual) Basophils % (Manual) Nucleated RBC % Seg Neutrophils # Seg Neutrophils # Man Lymphocytes # (Manual) Monocytes # (Manual) Eosinophils # (Manual) PT INR Fibrinogen dRVVT Confirm Interp Factor V Activity POC ABG pH POC ABG pCO2 POC ABG pO2 Sodium Potassium Chloride Carbon Dioxide BUN Creatinine Glucose POC Glucose 114 H 134 H Lactic Acid Calcium Phosphorus Magnesium Direct Bilirubin AST ALT Alkaline Phosphatase Lactate Dehydrogenase Troponin T C-Reactive Protein Total Protein Albumin Prealbumin Triglycerides Cholesterol LDL Cholesterol Direct HDL Cholesterol Urine pH Urine WBC (Auto) Urine Creatinine Urine Total Protein Vancomycin Trough Rheumatoid Factor Complement C4 Miscellaneous Test Flexitest 1 H Crossmatch 11/06/16 11/06/16 11/06/16 04:56 06:25 06:25 WBC RBC 2.50 L Hgb 7.3 L Hct 22.5 L MCV MCH MCHC RDW 16.9 H Plt Count Lymph % (Auto) [place] % (Auto) 10.5 H Lymph # [place] # 1.1 H Baso # Seg Neutrophils % Seg Neuts % (Manual) Lymphocytes % (Manual) Monocytes % (Manual) Eosinophils % (Manual) Basophils % (Manual) Nucleated RBC % Seg Neutrophils # Seg Neutrophils # Man Lymphocytes # (Manual) Monocytes # (Manual) Eosinophils # (Manual) PT INR Fibrinogen dRVVT Confirm Interp Factor V Activity POC ABG pH POC ABG pCO2 POC ABG pO2 Sodium Potassium 5.1 H Chloride 95.9 L Carbon Dioxide BUN 52 H Creatinine 1.8 H Glucose 117 H POC Glucose 120 H Lactic Acid Calcium Phosphorus Magnesium Direct Bilirubin AST 103 H ALT 77 H Alkaline Phosphatase 285 H Lactate Dehydrogenase Troponin T C-Reactive Protein Total Protein 6.2 L Albumin 1.8 L Prealbumin 0.180 L Triglycerides Cholesterol LDL Cholesterol Direct HDL Cholesterol Urine pH Urine WBC (Auto) Urine Creatinine Urine Total Protein Vancomycin Trough Rheumatoid Factor Complement C4 Miscellaneous Test Crossmatch 11/06/16 11/06/16 11/06/16 11:56 17:14 23:52 WBC RBC Hgb Hct MCV MCH MCHC RDW Plt Count Lymph % (Auto) [place] % (Auto) Lymph # [place] # Baso # Seg Neutrophils % Seg Neuts % (Manual) Lymphocytes % (Manual) Monocytes % (Manual) Eosinophils % (Manual) Basophils % (Manual) Nucleated RBC % Seg Neutrophils # Seg Neutrophils # Man Lymphocytes # (Manual) Monocytes # (Manual) Eosinophils # (Manual) PT INR Fibrinogen dRVVT Confirm Interp Factor V Activity POC ABG pH POC ABG pCO2 POC ABG pO2 Sodium Potassium Chloride Carbon Dioxide BUN Creatinine Glucose POC Glucose 141 H 125 H 130 H Lactic Acid Calcium Phosphorus Magnesium Direct Bilirubin AST ALT Alkaline Phosphatase Lactate Dehydrogenase Troponin T C-Reactive Protein Total Protein Albumin Prealbumin Triglycerides Cholesterol LDL Cholesterol Direct HDL Cholesterol Urine pH Urine WBC (Auto) Urine Creatinine Urine Total Protein Vancomycin Trough Rheumatoid Factor Complement C4 Miscellaneous Test Crossmatch 11/07/16 11/07/16 11/07/16 06:30 06:30 09:37 WBC RBC 2.18 L Hgb 6.3 L Hct 19.7 L* MCV MCH MCHC RDW 16.8 H Plt Count Lymph % (Auto) [place] % (Auto) 10.0 H Lymph # [place] # 1.0 H Baso # Seg Neutrophils % Seg Neuts % (Manual) Lymphocytes % (Manual) Monocytes % (Manual) Eosinophils % (Manual) Basophils % (Manual) Nucleated RBC % Seg Neutrophils # Seg Neutrophils # Man Lymphocytes # (Manual) Monocytes # (Manual) Eosinophils # (Manual) PT INR Fibrinogen dRVVT Confirm Interp Factor V Activity POC ABG pH POC ABG pCO2 POC ABG pO2 Sodium 135 L Potassium Chloride 95.6 L Carbon Dioxide BUN 70 H Creatinine 2.0 H Glucose 126 H POC Glucose Lactic Acid Calcium Phosphorus Magnesium Direct Bilirubin AST ALT Alkaline Phosphatase Lactate Dehydrogenase Troponin T C-Reactive Protein Total Protein Albumin Prealbumin Triglycerides Cholesterol LDL Cholesterol Direct HDL Cholesterol Urine pH Urine WBC (Auto) Urine Creatinine Urine Total Protein Vancomycin Trough Rheumatoid Factor Complement C4 Miscellaneous Test Crossmatch See Detail 11/07/16 11/07/16 11/07/16 12:52 18:51 21:26 WBC RBC Hgb Hct MCV MCH MCHC RDW Plt Count Lymph % (Auto) [place] % (Auto) Lymph # [place] # Baso # Seg Neutrophils % Seg Neuts % (Manual) Lymphocytes % (Manual) Monocytes % (Manual) Eosinophils % (Manual) Basophils % (Manual) Nucleated RBC % Seg Neutrophils # Seg Neutrophils # Man Lymphocytes # (Manual) Monocytes # (Manual) Eosinophils # (Manual) PT INR Fibrinogen dRVVT Confirm Interp Factor V Activity POC ABG pH 7.523 H POC ABG pCO2 34.6 L POC ABG pO2 53 L Sodium Potassium Chloride Carbon Dioxide BUN Creatinine Glucose POC Glucose 142 H 155 H Lactic Acid Calcium Phosphorus Magnesium Direct Bilirubin AST ALT Alkaline Phosphatase Lactate Dehydrogenase Troponin T C-Reactive Protein Total Protein Albumin Prealbumin Triglycerides Cholesterol LDL Cholesterol Direct HDL Cholesterol Urine pH Urine WBC (Auto) Urine Creatinine Urine Total Protein Vancomycin Trough Rheumatoid Factor Complement C4 Miscellaneous Test Crossmatch 11/07/16 11/08/16 11/08/16 21:34 13:03 23:37 WBC RBC 2.63 L Hgb 7.7 L Hct 22.7 L MCV MCH MCHC RDW 17.0 H Plt Count Lymph % (Auto) [place] % (Auto) Lymph # [place] # Baso # Seg Neutrophils % Seg Neuts % (Manual) Lymphocytes % (Manual) Monocytes % (Manual) Eosinophils % (Manual) Basophils % (Manual) Nucleated RBC % Seg Neutrophils # Seg Neutrophils # Man Lymphocytes # (Manual) Monocytes # (Manual) Eosinophils # (Manual) PT INR Fibrinogen dRVVT Confirm Interp Factor V Activity POC ABG pH 7.478 H POC ABG pCO2 34.0 L POC ABG pO2 50 L Sodium Potassium Chloride Carbon Dioxide BUN Creatinine Glucose POC Glucose 113 H Lactic Acid Calcium Phosphorus Magnesium Direct Bilirubin AST ALT Alkaline Phosphatase Lactate Dehydrogenase Troponin T C-Reactive Protein Total Protein Albumin Prealbumin Triglycerides Cholesterol LDL Cholesterol Direct HDL Cholesterol Urine pH Urine WBC (Auto) Urine Creatinine Urine Total Protein Vancomycin Trough Rheumatoid Factor Complement C4 Miscellaneous Test Crossmatch 11/09/16 11/09/16 11/09/16 04:35 10:15 18:21 WBC RBC 2.68 L Hgb 7.8 L Hct 23.3 L MCV MCH MCHC RDW 17.0 H Plt Count Lymph % (Auto) [place] % (Auto) 12.1 H Lymph # [place] # 1.1 H Baso # Seg Neutrophils % Seg Neuts % (Manual) Lymphocytes % (Manual) Monocytes % (Manual) Eosinophils % (Manual) Basophils % (Manual) Nucleated RBC % Seg Neutrophils # Seg Neutrophils # Man Lymphocytes # (Manual) Monocytes # (Manual) Eosinophils # (Manual) PT INR Fibrinogen dRVVT Confirm Interp Factor V Activity POC ABG pH POC ABG pCO2 POC ABG pO2 Sodium Potassium Chloride Carbon Dioxide BUN 51 H Creatinine 1.8 H Glucose POC Glucose 60 L Lactic Acid Calcium 8.3 L Phosphorus Magnesium Direct Bilirubin AST ALT Alkaline Phosphatase Lactate Dehydrogenase Troponin T C-Reactive Protein Total Protein Albumin Prealbumin Triglycerides Cholesterol LDL Cholesterol Direct HDL Cholesterol Urine pH Urine WBC (Auto) Urine Creatinine Urine Total Protein Vancomycin Trough Rheumatoid Factor Complement C4 Miscellaneous Test Crossmatch 11/09/16 11/10/16 11/10/16 18:55 07:00 11:51 WBC RBC Hgb Hct MCV MCH MCHC RDW Plt Count Lymph % (Auto) [place] % (Auto) Lymph # [place] # Baso # Seg Neutrophils % Seg Neuts % (Manual) Lymphocytes % (Manual) Monocytes % (Manual) Eosinophils % (Manual) Basophils % (Manual) Nucleated RBC % Seg Neutrophils # Seg Neutrophils # Man Lymphocytes # (Manual) Monocytes # (Manual) Eosinophils # (Manual) PT INR Fibrinogen dRVVT Confirm Interp Factor V Activity POC ABG pH POC ABG pCO2 POC ABG pO2 Sodium Potassium 3.0 L D Chloride 97.4 L Carbon Dioxide BUN 28 H Creatinine 1.3 H Glucose POC Glucose 68 L 120 H Lactic Acid Calcium 7.8 L Phosphorus Magnesium Direct Bilirubin AST ALT Alkaline Phosphatase Lactate Dehydrogenase Troponin T C-Reactive Protein Total Protein Albumin Prealbumin Triglycerides Cholesterol LDL Cholesterol Direct HDL Cholesterol Urine pH Urine WBC (Auto) Urine Creatinine Urine Total Protein Vancomycin Trough Rheumatoid Factor Complement C4 Miscellaneous Test Crossmatch 11/11/16 11/11/16 11/11/16 06:59 06:59 06:59 WBC RBC 2.81 L Hgb 8.1 L Hct 24.4 L MCV MCH MCHC RDW 16.4 H Plt Count Lymph % (Auto) [place] % (Auto) 10.8 H Lymph # [place] # 1.0 H Baso # Seg Neutrophils % Seg Neuts % (Manual) Lymphocytes % (Manual) Monocytes % (Manual) Eosinophils % (Manual) Basophils % (Manual) Nucleated RBC % Seg Neutrophils # Seg Neutrophils # Man Lymphocytes # (Manual) Monocytes # (Manual) Eosinophils # (Manual) PT INR Fibrinogen dRVVT Confirm Interp Factor V Activity POC ABG pH POC ABG pCO2 POC ABG pO2 Sodium 136 L Potassium Chloride 96.1 L Carbon Dioxide BUN 37 H Creatinine 1.8 H Glucose POC Glucose Lactic Acid Calcium Phosphorus Magnesium Direct Bilirubin AST ALT Alkaline Phosphatase Lactate Dehydrogenase 196 H Troponin T C-Reactive Protein Total Protein 6.1 L Albumin Prealbumin Triglycerides Cholesterol LDL Cholesterol Direct HDL Cholesterol Urine pH Urine WBC (Auto) Urine Creatinine Urine Total Protein Vancomycin Trough Rheumatoid Factor Complement C4 Miscellaneous Test Crossmatch 11/11/16 11/12/16 11/12/16 09:50 04:00 04:00 WBC RBC Hgb 8.9 L Hct 27.2 L MCV MCH MCHC RDW Plt Count Lymph % (Auto) [place] % (Auto) Lymph # [place] # Baso # Seg Neutrophils % Seg Neuts % (Manual) Lymphocytes % (Manual) Monocytes % (Manual) Eosinophils % (Manual) Basophils % (Manual) Nucleated RBC % Seg Neutrophils # Seg Neutrophils # Man Lymphocytes # (Manual) Monocytes # (Manual) Eosinophils # (Manual) PT INR 1.18 H Fibrinogen dRVVT Confirm Interp Factor V Activity POC ABG pH POC ABG pCO2 POC ABG pO2 Sodium 133 L Potassium Chloride 94.8 L Carbon Dioxide 21 L BUN 42 H Creatinine 2.0 H Glucose POC Glucose Lactic Acid Calcium Phosphorus Magnesium Direct Bilirubin AST ALT Alkaline Phosphatase Lactate Dehydrogenase Troponin T C-Reactive Protein Total Protein Albumin Prealbumin Triglycerides Cholesterol LDL Cholesterol Direct HDL Cholesterol Urine pH Urine WBC (Auto) Urine Creatinine Urine Total Protein Vancomycin Trough Rheumatoid Factor Complement C4 Miscellaneous Test Crossmatch 11/12/16 11/13/16 11/13/16 23:55 05:53 11:43 WBC RBC Hgb Hct MCV MCH MCHC RDW Plt Count Lymph % (Auto) [place] % (Auto) Lymph # [place] # Baso # Seg Neutrophils % Seg Neuts % (Manual) Lymphocytes % (Manual) Monocytes % (Manual) Eosinophils % (Manual) Basophils % (Manual) Nucleated RBC % Seg Neutrophils # Seg Neutrophils # Man Lymphocytes # (Manual) Monocytes # (Manual) Eosinophils # (Manual) PT INR Fibrinogen dRVVT Confirm Interp Factor V Activity POC ABG pH POC ABG pCO2 POC ABG pO2 Sodium Potassium Chloride Carbon Dioxide BUN Creatinine Glucose POC Glucose 132 H 120 H 114 H Lactic Acid Calcium Phosphorus Magnesium Direct Bilirubin AST ALT Alkaline Phosphatase Lactate Dehydrogenase Troponin T C-Reactive Protein Total Protein Albumin Prealbumin Triglycerides Cholesterol LDL Cholesterol Direct HDL Cholesterol Urine pH Urine WBC (Auto) Urine Creatinine Urine Total Protein Vancomycin Trough Rheumatoid Factor Complement C4 Miscellaneous Test Crossmatch 11/13/16 11/13/16 11/13/16 17:09 23:41 Unknown WBC RBC Hgb Hct MCV MCH MCHC RDW Plt Count Lymph % (Auto) [place] % (Auto) Lymph # [place] # Baso # Seg Neutrophils % Seg Neuts % (Manual) Lymphocytes % (Manual) Monocytes % (Manual) Eosinophils % (Manual) Basophils % (Manual) Nucleated RBC % Seg Neutrophils # Seg Neutrophils # Man Lymphocytes # (Manual) Monocytes # (Manual) Eosinophils # (Manual) PT INR Fibrinogen dRVVT Confirm Interp Factor V Activity POC ABG pH POC ABG pCO2 POC ABG pO2 Sodium 135 L Potassium Chloride 95.2 L Carbon Dioxide BUN 52 H Creatinine 2.2 H Glucose POC Glucose 113 H 108 H Lactic Acid Calcium Phosphorus Magnesium Direct Bilirubin AST ALT Alkaline Phosphatase Lactate Dehydrogenase Troponin T C-Reactive Protein Total Protein Albumin Prealbumin Triglycerides Cholesterol LDL Cholesterol Direct HDL Cholesterol Urine pH Urine WBC (Auto) Urine Creatinine Urine Total Protein Vancomycin Trough Rheumatoid Factor Complement C4 Miscellaneous Test Crossmatch Allied health notes reviewed: RT
--- NOTE | 2016-11-14 12:25 | Progress Note ---
Assessment and Plan Continue with tube feeding Continue local wound care until healed Off ATBx per ID and monitor Once wounds healed and no signs of intraabdominal or abdominal wall infections then can consider a gastrostomy tube for half-way enteral access Subjective Date of service: 11/14/16 Patient Reports: Positive: no new complaints Objective Vital Signs - 12hr 11/14/16 11/14/16 11/14/16 00:31 01:01 01:31 Temperature Pulse Rate 83 80 83 Pulse Rate [ From Monitor] Respiratory 18 14 16 Rate Blood Pressure 162/85 104/49 162/85 O2 Sat by Pulse 100 100 100 Oximetry O2 Sat by Pulse Oximetry [ Assessment] 11/14/16 11/14/16 11/14/16 02:00 02:31 02:59 Temperature Pulse Rate 97 H 106 H 95 H Pulse Rate [ From Monitor] Respiratory 19 Rate Blood Pressure 104/49 183/97 190/91 O2 Sat by Pulse 100 100 Oximetry O2 Sat by Pulse Oximetry [ Assessment] 11/14/16 11/14/16 11/14/16 03:00 03:31 04:00 Temperature 98.6 F Pulse Rate 96 H 85 84 Pulse Rate [ 84 From Monitor] Respiratory 20 17 18 Rate Blood Pressure 183/100 183/100 183/100 O2 Sat by Pulse 100 100 100 Oximetry O2 Sat by Pulse Oximetry [ Assessment] 11/14/16 11/14/16 11/14/16 04:31 05:00 05:27 Temperature Pulse Rate 82 78 Pulse Rate [ From Monitor] Respiratory 14 13 Rate Blood Pressure 187/95 187/95 O2 Sat by Pulse 100 100 Oximetry O2 Sat by Pulse 84 Oximetry [ Assessment] 11/14/16 11/14/16 11/14/16 05:31 06:00 06:27 Temperature Pulse Rate 83 84 83 Pulse Rate [ From Monitor] Respiratory 15 15 Rate Blood Pressure 122/67 185/97 185/97 O2 Sat by Pulse 100 100 Oximetry O2 Sat by Pulse Oximetry [ Assessment] 11/14/16 11/14/16 11/14/16 06:29 07:00 07:45 Temperature Pulse Rate 88 Pulse Rate [ From Monitor] Respiratory 13 20 Rate Blood Pressure 122/76 O2 Sat by Pulse 100 100 Oximetry O2 Sat by Pulse Oximetry [ Assessment] 11/14/16 11/14/16 11/14/16 08:00 09:00 09:14 Temperature 98.4 F Pulse Rate 88 75 75 Pulse Rate [ From Monitor] Respiratory 15 13 Rate Blood Pressure 167/86 95/48 95/48 O2 Sat by Pulse 100 100 Oximetry O2 Sat by Pulse Oximetry [ Assessment] 11/14/16 11/14/16 11/14/16 10:00 11:00 11:55 Temperature Pulse Rate 86 80 90 Pulse Rate [ From Monitor] Respiratory 15 15 Rate Blood Pressure 189/90 132/71 132/71 O2 Sat by Pulse 100 100 100 Oximetry O2 Sat by Pulse Oximetry [ Assessment] 11/14/16 11/14/16 11:56 12:00 Temperature Pulse Rate 90 Pulse Rate [ From Monitor] Respiratory 24 Rate Blood Pressure 169/95 O2 Sat by Pulse 100 100 Oximetry O2 Sat by Pulse Oximetry [ Assessment] - Abdomen soft, other (Wounds with minimal drainage. ) - Labs 11/12/16 04:00 11/13/16 Unknown
[2016-11-14] MEDS: TRANSDERM-SCOP TD SCH (14:29)
--- NOTE | 2016-11-14 16:14 | Ultrasound Report ---
ULTRASOUND THORACENTESIS History: Right pleural effusion. Description of procedure: Informed consent was obtained from a family member. Sterile technique was utilized. 1% lidocaine for skin anesthesia. Using ultrasound guidance, a 5 [place] centesis needle was advanced into the right pleural space. There was spontaneous return of clear yellow fluid. 240 cc of fluid was aspirated. 120 cc were sent to laboratory for analysis. No complications. Impression: Successful ultrasound-guided right pleural effusion.
--- NOTE | 2016-11-14 16:19 | Procedure Note ---
Date of procedure: 11/14/16 Pre-op diagnosis: right pleural effusion Post-op diagnosis: same Procedure: US thoracentesis, right Findings: small right pleural fluid Anesthesia: local Surgeon: DESHAUN BAH Estimated blood loss: none Pathology: list (120cc) Specimen disposition: to lab Condition: stable
--- NOTE | 2016-11-14 18:43 | XRay Report ---
FINAL REPORT EXAM: XR CHEST 1V AP HISTORY: recent right thoracentesis, sob, eval for PTX TECHNIQUE: AP portable view of the chest PRIORS: CXR 11/05/2016 FINDINGS: Lines, tubes, and devices: Endotracheal tube, Dobhoff feeding tube, and double-lumen left jugular catheter are unchanged. Lungs and pleura: Trachea is normal in position. There is worsening opacification of almost the entire left hemithorax now seen. Small amount of aerated lung in the left apex remains. The right lung is clear of infiltrates, pleural effusion, vascular congestion, or pneumothorax. Cardiomediastinal silhouette: Cardiac and mediastinal silhouettes are unremarkable. Other: Bony structures are intact. IMPRESSION: Worsening opacification of the left hemithorax with only a small amount of aeration remaining in the left apex.
[2016-11-15] MEDS: HumuLIN R SUB-Q SCH ×4 (00:37→17:50)
[2016-11-15 03:55] LABS: Hematocrit 23.4 % (30.3-42.9); Hemoglobin 7.6 gm/dl (10.1-14.3); Mean Corpuscular HGB Conc 33 % (30-34); Mean Corpuscular Hemoglobin 28 pg (28-32); Mean Corpuscular Volume 86 fl (79-97); Platelet Count 331 K/mm3 (140-440); Red Blood Count 2.72 M/mm3 (3.65-5.03); Red Cell Distribution Width 16.5 % (13.2-15.2)
[2016-11-15 04:06] LABS: BUN/Creatinine Ratio 16.66; Calcium 8.7 mg/dL (8.4-10.2)
[2016-11-15] MEDS: LOPRESSOR FEEDTUBE SCH ×3 (04:49→18:37)
[2016-11-15] MEDS: APRESOLINE PO SCH ×3 (05:16→21:26)
--- NOTE | 2016-11-15 08:22 | Progress Note ---
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 Objective - Vital Signs Vital signs: Vital Signs - 12hr 11/14/16 11/14/16 11/14/16 21:00 21:10 21:38 Temperature Pulse Rate 104 H 110 H 99 H Respiratory 24 Rate Respiratory Rate [Left Hand ] Blood Pressure 162/96 180/99 170/91 O2 Sat by Pulse 100 100 Oximetry 11/14/16 11/14/16 11/14/16 21:40 22:00 23:00 Temperature Pulse Rate 99 H 106 H 112 H Respiratory 15 21 Rate Respiratory Rate [Left Hand ] Blood Pressure 187/99 160/94 O2 Sat by Pulse 100 100 94 Oximetry 11/14/16 11/14/16 11/14/16 23:17 23:20 23:36 Temperature Pulse Rate 118 H 118 H 111 H Respiratory 18 Rate Respiratory 18 Rate [Left Hand ] Blood Pressure 161/90 156/80 O2 Sat by Pulse 100 98 99 Oximetry 11/14/16 11/15/16 11/15/16 23:56 00:00 01:00 Temperature 99.1 F Pulse Rate 106 H 108 H Respiratory 16 15 Rate Respiratory Rate [Left Hand ] Blood Pressure 130/69 149/83 O2 Sat by Pulse 98 100 Oximetry 11/15/16 11/15/16 11/15/16 01:05 02:00 03:00 Temperature Pulse Rate 108 H 107 H 110 H Respiratory 18 18 Rate Respiratory Rate [Left Hand ] Blood Pressure 134/83 143/80 O2 Sat by Pulse 99 99 Oximetry 11/15/16 11/15/16 11/15/16 03:20 03:37 03:39 Temperature 100.7 F H Pulse Rate 108 H 108 H Respiratory 16 Rate Respiratory Rate [Left Hand ] Blood Pressure 157/90 O2 Sat by Pulse 100 100 Oximetry 11/15/16 11/15/16 11/15/16 04:00 04:49 05:00 Temperature Pulse Rate 109 H 109 H 108 H Respiratory 17 16 Rate Respiratory Rate [Left Hand ] Blood Pressure 152/87 161/90 162/89 O2 Sat by Pulse 100 100 Oximetry 11/15/16 11/15/16 05:16 05:30 Temperature Pulse Rate 99 H 99 H Respiratory 18 Rate Respiratory Rate [Left Hand ] Blood Pressure 164/88 O2 Sat by Pulse 100 Oximetry - General Appearance General appearance: well-developed, intubated EENT: ATNC, other (trach) Respiratory: Present: Clear to Ascultation Cardiology: regular, S1S2 Gastrointestinal: normal, no tenderness, no distended Integumentary: no rash Musculoskeletal: other (trace edema) - Lab 11/15/16 03:30 11/15/16 03:30 Most recent lab results Calcium 8.7 mg/dL (8.4-10.2) 11/15/16 03:30 Phosphorus 4.40 mg/dL (2.5-4.5) 11/07/16 06:30 Magnesium 2.20 mg/dL (1.7-2.3) 11/07/16 06:30 Urine Creatinine 19.7 mg/dL (0.1-20.0) 11/12/16 10:18 Urine Sodium 36 mEq/L 09/16/16 19:19 Urine Total Protein 16 mg/dL (5-11.8) H 09/16/16 19:19
[2016-11-15] MEDS: QUESTRAN PO SCH (09:06)
[2016-11-15] MEDS: PROTONIX FEEDTUBE SCH (09:07)
[2016-11-15] MEDS: COZAAR PO SCH (09:07)
--- NOTE | 2016-11-15 11:46 | Progress Note ---
Assessment and Plan (1) Acute respiratory failure with hypoxia Current Visit: Yes Status: Acute Plan to address problem: - continue aspiration precautions - continue to wean oxygen for MAP > 94% - continue bronchodilators and pulmonary toilet - s/p tracheostomy - continue scopolamine - ABG's prn at this point for increased work of breathing or other resp distress - will send for right thoracentesis re: moderate effusion with the hope that it aids RTC t-piece tolerance - follow thoracentesis studies - continue t-piece trials and shoot for RTC if tolerates now s/p thoracentesis (2) Acute CVA (cerebrovascular accident) Current Visit: Yes Status: Acute Plan to address problem: - Left MCA teritory stroke - seen by neurology and prognosis for recovery of mental status guarded to poor - optimizing secondary prevention modalities now (BP, lipid anti-platelet therapy) - off systemic steroids now (started earlier for edema) - clinically mild improvement (3) Hypertensive emergency Current Visit: Yes Status: Acute Plan to address problem: - continue antihypertensives (on metoprolol, clonidine and cozaar) - use prn hydralazine - resume sedation while on MVS (4) Obesity (BMI 35.0-39.9 without comorbidity) Current Visit: Yes Status: Chronic Plan to address problem: - now at goal rate on tube feeding - stopped TPN (5) Type 2 diabetes mellitus Current Visit: Yes Status: Chronic Qualifiers: Diabetes mellitus complication status: D Diabetes mellitus complication detail: D Diabetic retinopathy severity: D Proliferative retinopathy type: P Diabetes mellitus macular edema: D Diabetes mellitus chcf insulin use : D Laterality: L Chronic kidney disease stage: C Plan to address problem: - continue SSI - discontinued lantus prior re: hypoglycemia - target BG's <180 mg/dl (6) Leukocytosis (leucocytosis) Current Visit: Yes Status: Acute Qualifiers: Leukocytosis type: leukemoid reaction Qualified Code(s): D72.823 - Leukemoid reaction Plan to address problem: - improving - see sepsis section below (7) Agitation Current Visit: Yes Status: Acute Plan to address problem: - prn sedation / analgesia - tapered off seroquel for now (8) Atrial fibrillation Current Visit: Yes Status: Acute Qualifiers: Atrial fibrillation type: A Plan to address problem: - off amiodarone - continue p.o. metoprolol scheduled at 50mg q6h and adjust as necessary (9) JUANITA (acute kidney injury) Current Visit: Yes Status: Acute Plan to address problem: - on Dialysis now - continue HD/UF per nephrology recommendations - s/p tunnelled vas-cath - HD/UF -- (10) Pyrexia of unknown origin Current Visit: Yes Status: Acute Plan to address problem: - dopplers negative for DVT - continue to treat with Anti-infectives (11) Severe sepsis Current Visit: Yes Status: Acute Plan to address problem: - resume vasopressors for MAP < 60mmHg not responsive to volume - continue anti-infectives per ID recs - VRE in urine noted; ? colonizer at this point - continue contact precautions - PSAR noted on trach aspirate from 11/07/16 (? Colonizer) - catheter tip however with >15CFU GNR growing now and may well be same organism (await ID- if that's the case however she is on appropriate AB's therapy) - clinically more stable overall (12) Emesis Current Visit: Yes Status: Acute Qualifiers: Vomiting type: V Vomiting Intractability: V Nausea presence: N Plan to address problem: - s/p surgical repair of gastric perforation - continue TPN for now - follow surgery recommendations re: feeding and new PEG tube - now tolerating tube feeds at goal rate (13) Dysphagia, oropharyngeal Current Visit: Yes Status: Acute Plan to address problem: - discussed with surgeon and she will be best served with continued treatment with anti-infectives as well as time for the GI tract and her wounds to heal before replacing the PEG tube - continue DHT feeding (14) Discharge planning issues Current Visit: Yes Status: Acute Plan to address problem: - she remains critically ill on life sustaining interventions including MVS and at risk for further acute deterioration including - if can stay off MVS then can transfer to medical floor shortly .....30' 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 Subjective Date of service: 11/15/16 Principal diagnosis: Acute resp failure on MVS; S/P Acute CVA; Acute Encephalopathy; JUANITA Interval history: Seen and examined at bedside; 24 hour events reviewed; nursing and respiratory care staff consulted; no adverse overnight events reported to me; on t-piece now and tolerating well; no emesis or overt aspiration; RLQ drain sero- sanguineous Objective Vital Signs - 12hr 11/14/16 11/15/16 11/15/16 23:56 00:00 01:00 Temperature 99.1 F Pulse Rate 106 H 108 H Pulse Rate [ From Monitor] Respiratory 16 15 Rate Blood Pressure 130/69 149/83 O2 Sat by Pulse 98 100 Oximetry O2 Sat by Pulse Oximetry [ Assessment] 11/15/16 11/15/16 11/15/16 01:05 02:00 03:00 Temperature Pulse Rate 108 H 107 H 110 H Pulse Rate [ From Monitor] Respiratory 18 18 Rate Blood Pressure 134/83 143/80 O2 Sat by Pulse 99 99 Oximetry O2 Sat by Pulse Oximetry [ Assessment] 11/15/16 11/15/16 11/15/16 03:20 03:37 03:39 Temperature 100.7 F H Pulse Rate 108 H 108 H Pulse Rate [ From Monitor] Respiratory 16 Rate Blood Pressure 157/90 O2 Sat by Pulse 100 100 Oximetry O2 Sat by Pulse Oximetry [ Assessment] 11/15/16 11/15/16 11/15/16 04:00 04:49 05:00 Temperature Pulse Rate 109 H 109 H 108 H Pulse Rate [ From Monitor] Respiratory 17 16 Rate Blood Pressure 152/87 161/90 162/89 O2 Sat by Pulse 100 100 Oximetry O2 Sat by Pulse Oximetry [ Assessment] 11/15/16 11/15/16 11/15/16 05:16 05:30 06:00 Temperature Pulse Rate 99 H 99 H 93 H Pulse Rate [ From Monitor] Respiratory 18 14 Rate Blood Pressure 164/88 109/57 O2 Sat by Pulse 100 98 Oximetry O2 Sat by Pulse Oximetry [ Assessment] 11/15/16 11/15/16 11/15/16 07:00 08:00 08:50 Temperature 98.6 F Pulse Rate 99 H 93 H Pulse Rate [ 91 H From Monitor] Respiratory 16 33 H Rate Blood Pressure 154/84 149/81 O2 Sat by Pulse 100 97 99 Oximetry O2 Sat by Pulse Oximetry [ Assessment] 11/15/16 11/15/16 11/15/16 08:55 09:00 09:07 Temperature Pulse Rate 92 H 101 H Pulse Rate [ From Monitor] Respiratory 23 Rate Blood Pressure 144/83 144/83 O2 Sat by Pulse 96 Oximetry O2 Sat by Pulse 99 Oximetry [ Assessment] 11/15/16 11/15/16 11/15/16 10:00 11:00 11:30 Temperature Pulse Rate 102 H 108 H 108 H Pulse Rate [ From Monitor] Respiratory 32 H 22 Rate Blood Pressure 171/93 175/93 174/93 O2 Sat by Pulse 97 97 Oximetry O2 Sat by Pulse Oximetry [ Assessment] Constitutional: no acute distress, other (eyes open; tracking movements) Eyes: non-icteric, other (tracheostomy tube in midline of neck) ENT: oropharynx moist Neck: supple, no lymphadenopathy Effort: mildly labored Ascultation: Bilateral: diminished breath sounds (bases), rhonchi Cardiovascular: regular rate and rhythm Gastrointestinal: hypoactive bowel sounds, soft, non-tender, non-distended, other (RLQ stomas with colostomy bags) Integumentary: other (healing back burn-like injury) Extremities: no cyanosis, no edema, pulses normal, no ischemia or petechiae Neurologic: pupils equal and round, other (sedated) Psychiatric: other (unable to assess) CBC and BMP: 11/15/16 03:30 11/15/16 03:30 ABG, PT/INR, D-dimer: ABG POC ABG pH 7.478 (7.35-7.45) H 11/08/16 23:37 POC ABG pCO2 34.0 (35-45) L 11/08/16 23:37 POC ABG pO2 50 (80-105) L 11/08/16 23:37 POC ABG HCO3 25.2 11/08/16 23:37 POC ABG Total CO2 26 11/08/16 23:37 POC ABG O2 Sat 88 11/08/16 23:37 PT/INR, D-dimer PT 14.9 Sec. (12.2-14.9) 11/11/16 09:50 INR 1.18 (0.87-1.13) H 11/11/16 09:50 Abnormal lab findings: Abnormal Labs 09/03/16 09/03/16 09/03/16 12:12 15:07 16:20 WBC RBC Hgb Hct MCV MCH MCHC RDW Plt Count Lymph % (Auto) [place] % (Auto) Lymph # [place] # Baso # Seg Neutrophils % Seg Neuts % (Manual) Lymphocytes % (Manual) Monocytes % (Manual) Eosinophils % (Manual) Basophils % (Manual) Nucleated RBC % Seg Neutrophils # Seg Neutrophils # Man Lymphocytes # (Manual) Monocytes # (Manual) Eosinophils # (Manual) PT INR Fibrinogen dRVVT Confirm Interp Factor V Activity POC ABG pH 7.452 H POC ABG pCO2 POC ABG pO2 Sodium Potassium Chloride Carbon Dioxide BUN Creatinine Glucose POC Glucose 178 H Lactic Acid Calcium Phosphorus 2.20 L Magnesium 1.60 L Direct Bilirubin AST ALT Alkaline Phosphatase Lactate Dehydrogenase Troponin T C-Reactive Protein Total Protein Albumin Prealbumin Triglycerides Cholesterol LDL Cholesterol Direct HDL Cholesterol Urine pH Urine WBC (Auto) Urine Creatinine Urine Total Protein Vancomycin Trough Rheumatoid Factor Complement C4 Miscellaneous Test Crossmatch 09/03/16 09/03/16 09/03/16 17:57 17:58 23:50 WBC RBC Hgb Hct MCV MCH MCHC RDW Plt Count Lymph % (Auto) [place] % (Auto) Lymph # [place] # Baso # Seg Neutrophils % Seg Neuts % (Manual) Lymphocytes % (Manual) Monocytes % (Manual) Eosinophils % (Manual) Basophils % (Manual) Nucleated RBC % Seg Neutrophils # Seg Neutrophils # Man Lymphocytes # (Manual) Monocytes # (Manual) Eosinophils # (Manual) PT INR Fibrinogen dRVVT Confirm Interp Factor V Activity POC ABG pH POC ABG pCO2 POC ABG pO2 Sodium Potassium Chloride Carbon Dioxide BUN Creatinine Glucose POC Glucose 162 H 145 H Lactic Acid Calcium Phosphorus 2.30 L Magnesium Direct Bilirubin AST ALT Alkaline Phosphatase Lactate Dehydrogenase Troponin T C-Reactive Protein Total Protein Albumin Prealbumin Triglycerides Cholesterol LDL Cholesterol Direct HDL Cholesterol Urine pH Urine WBC (Auto) Urine Creatinine Urine Total Protein Vancomycin Trough Rheumatoid Factor Complement C4 Miscellaneous Test Crossmatch 09/04/16 09/04/16 09/04/16 03:31 03:31 05:42 WBC RBC Hgb 9.7 L D Hct MCV 72 L MCH 23 L MCHC RDW 17.5 H Plt Count Lymph % (Auto) 11.1 L [place] % (Auto) Lymph # [place] # Baso # Seg Neutrophils % 84.3 H Seg Neuts % (Manual) Lymphocytes % (Manual) Monocytes % (Manual) Eosinophils % (Manual) Basophils % (Manual) Nucleated RBC % Seg Neutrophils # 8.9 H Seg Neutrophils # Man Lymphocytes # (Manual) Monocytes # (Manual) Eosinophils # (Manual) PT INR Fibrinogen dRVVT Confirm Interp Factor V Activity POC ABG pH POC ABG pCO2 POC ABG pO2 Sodium 135 L Potassium 2.9 L* Chloride 97.2 L Carbon Dioxide 19 L BUN Creatinine 1.7 H Glucose 170 H POC Glucose 152 H Lactic Acid Calcium Phosphorus Magnesium Direct Bilirubin AST ALT Alkaline Phosphatase Lactate Dehydrogenase Troponin T C-Reactive Protein Total Protein Albumin Prealbumin Triglycerides 160 H Cholesterol LDL Cholesterol Direct HDL Cholesterol 31 L Urine pH Urine WBC (Auto) Urine Creatinine Urine Total Protein Vancomycin Trough Rheumatoid Factor Complement C4 Miscellaneous Test Crossmatch 09/04/16 09/04/16 09/04/16 11:34 17:46 23:29 WBC RBC Hgb Hct MCV MCH MCHC RDW Plt Count Lymph % (Auto) [place] % (Auto) Lymph # [place] # Baso # Seg Neutrophils % Seg Neuts % (Manual) Lymphocytes % (Manual) Monocytes % (Manual) Eosinophils % (Manual) Basophils % (Manual) Nucleated RBC % Seg Neutrophils # Seg Neutrophils # Man Lymphocytes # (Manual) Monocytes # (Manual) Eosinophils # (Manual) PT INR Fibrinogen dRVVT Confirm Interp Factor V Activity POC ABG pH POC ABG pCO2 POC ABG pO2 Sodium Potassium Chloride Carbon Dioxide BUN Creatinine Glucose POC Glucose 165 H 210 H 139 H Lactic Acid Calcium Phosphorus Magnesium Direct Bilirubin AST ALT Alkaline Phosphatase Lactate Dehydrogenase Troponin T C-Reactive Protein Total Protein Albumin Prealbumin Triglycerides Cholesterol LDL Cholesterol Direct HDL Cholesterol Urine pH Urine WBC (Auto) Urine Creatinine Urine Total Protein Vancomycin Trough Rheumatoid Factor Complement C4 Miscellaneous Test Crossmatch 09/05/16 09/05/16 09/05/16 04:05 04:05 05:38 WBC RBC Hgb Hct MCV 76 L D MCH 23 L MCHC RDW 17.8 H Plt Count Lymph % (Auto) [place] % (Auto) Lymph # [place] # Baso # Seg Neutrophils % Seg Neuts % (Manual) Lymphocytes % (Manual) Monocytes % (Manual) Eosinophils % (Manual) Basophils % (Manual) Nucleated RBC % Seg Neutrophils # Seg Neutrophils # Man Lymphocytes # (Manual) Monocytes # (Manual) Eosinophils # (Manual) PT INR Fibrinogen dRVVT Confirm Interp Factor V Activity POC ABG pH POC ABG pCO2 POC ABG pO2 Sodium 134 L Potassium Chloride Carbon Dioxide 18 L BUN Creatinine 1.8 H Glucose 192 H POC Glucose 175 H Lactic Acid Calcium Phosphorus Magnesium Direct Bilirubin AST ALT Alkaline Phosphatase Lactate Dehydrogenase Troponin T C-Reactive Protein Total Protein Albumin Prealbumin Triglycerides Cholesterol LDL Cholesterol Direct HDL Cholesterol Urine pH Urine WBC (Auto) Urine Creatinine Urine Total Protein Vancomycin Trough Rheumatoid Factor Complement C4 Miscellaneous Test Crossmatch 09/05/16 09/05/16 09/05/16 11:38 17:48 23:22 WBC RBC Hgb Hct MCV MCH MCHC RDW Plt Count Lymph % (Auto) [place] % (Auto) Lymph # [place] # Baso # Seg Neutrophils % Seg Neuts % (Manual) Lymphocytes % (Manual) Monocytes % (Manual) Eosinophils % (Manual) Basophils % (Manual) Nucleated RBC % Seg Neutrophils # Seg Neutrophils # Man Lymphocytes # (Manual) Monocytes # (Manual) Eosinophils # (Manual) PT INR Fibrinogen dRVVT Confirm Interp Factor V Activity POC ABG pH POC ABG pCO2 POC ABG pO2 Sodium Potassium Chloride Carbon Dioxide BUN Creatinine Glucose POC Glucose 164 H 186 H 195 H Lactic Acid Calcium Phosphorus Magnesium Direct Bilirubin AST ALT Alkaline Phosphatase Lactate Dehydrogenase Troponin T C-Reactive Protein Total Protein Albumin Prealbumin Triglycerides Cholesterol LDL Cholesterol Direct HDL Cholesterol Urine pH Urine WBC (Auto) Urine Creatinine Urine Total Protein Vancomycin Trough Rheumatoid Factor Complement C4 Miscellaneous Test Crossmatch 09/06/16 09/06/16 09/06/16 04:12 05:59 07:32 WBC RBC Hgb Hct MCV MCH MCHC RDW Plt Count Lymph % (Auto) [place] % (Auto) Lymph # [place] # Baso # Seg Neutrophils % Seg Neuts % (Manual) Lymphocytes % (Manual) Monocytes % (Manual) Eosinophils % (Manual) Basophils % (Manual) Nucleated RBC % Seg Neutrophils # Seg Neutrophils # Man Lymphocytes # (Manual) Monocytes # (Manual) Eosinophils # (Manual) PT INR Fibrinogen dRVVT Confirm Interp Factor V Activity POC ABG pH 7.514 H POC ABG pCO2 29.1 L POC ABG pO2 72 L Sodium 133 L Potassium 3.4 L Chloride 94.9 L Carbon Dioxide 19 L BUN 30 H Creatinine 2.1 H Glucose 139 H POC Glucose 146 H Lactic Acid Calcium Phosphorus Magnesium Direct Bilirubin AST ALT Alkaline Phosphatase Lactate Dehydrogenase Troponin T C-Reactive Protein Total Protein Albumin Prealbumin Triglycerides Cholesterol LDL Cholesterol Direct HDL Cholesterol Urine pH Urine WBC (Auto) Urine Creatinine Urine Total Protein Vancomycin Trough Rheumatoid Factor Complement C4 Miscellaneous Test Crossmatch 09/06/16 09/06/16 09/06/16 11:57 17:58 19:02 WBC RBC Hgb Hct MCV MCH MCHC RDW Plt Count Lymph % (Auto) [place] % (Auto) Lymph # [place] # Baso # Seg Neutrophils % Seg Neuts % (Manual) Lymphocytes % (Manual) Monocytes % (Manual) Eosinophils % (Manual) Basophils % (Manual) Nucleated RBC % Seg Neutrophils # Seg Neutrophils # Man Lymphocytes # (Manual) Monocytes # (Manual) Eosinophils # (Manual) PT INR Fibrinogen dRVVT Confirm Interp Factor V Activity POC ABG pH 7.465 H POC ABG pCO2 32.0 L POC ABG pO2 Sodium Potassium Chloride Carbon Dioxide BUN Creatinine Glucose POC Glucose 165 H 160 H Lactic Acid Calcium Phosphorus Magnesium Direct Bilirubin AST ALT Alkaline Phosphatase Lactate Dehydrogenase Troponin T C-Reactive Protein Total Protein Albumin Prealbumin Triglycerides Cholesterol LDL Cholesterol Direct HDL Cholesterol Urine pH Urine WBC (Auto) Urine Creatinine Urine Total Protein Vancomycin Trough Rheumatoid Factor Complement C4 Miscellaneous Test Crossmatch 09/06/16 09/07/16 09/07/16 23:45 02:47 02:47 WBC RBC Hgb Hct MCV MCH MCHC RDW Plt Count Lymph % (Auto) [place] % (Auto) Lymph # [place] # Baso # Seg Neutrophils % Seg Neuts % (Manual) Lymphocytes % (Manual) Monocytes % (Manual) Eosinophils % (Manual) Basophils % (Manual) Nucleated RBC % Seg Neutrophils # Seg Neutrophils # Man Lymphocytes # (Manual) Monocytes # (Manual) Eosinophils # (Manual) PT INR Fibrinogen dRVVT Confirm Interp Factor V Activity POC ABG pH POC ABG pCO2 POC ABG pO2 Sodium Potassium Chloride Carbon Dioxide BUN Creatinine Glucose POC Glucose 204 H Lactic Acid Calcium Phosphorus Magnesium Direct Bilirubin AST ALT Alkaline Phosphatase Lactate Dehydrogenase Troponin T C-Reactive Protein Total Protein Albumin Prealbumin Triglycerides Cholesterol LDL Cholesterol Direct HDL Cholesterol Urine pH Urine WBC (Auto) 68.0 H Urine Creatinine 106.1 H Urine Total Protein Vancomycin Trough Rheumatoid Factor Complement C4 Miscellaneous Test Crossmatch 09/07/16 09/07/16 09/07/16 04:50 06:19 06:39 WBC RBC Hgb Hct MCV MCH MCHC RDW Plt Count Lymph % (Auto) [place] % (Auto) Lymph # [place] # Baso # Seg Neutrophils % Seg Neuts % (Manual) Lymphocytes % (Manual) Monocytes % (Manual) Eosinophils % (Manual) Basophils % (Manual) Nucleated RBC % Seg Neutrophils # Seg Neutrophils # Man Lymphocytes # (Manual) Monocytes # (Manual) Eosinophils # (Manual) PT INR Fibrinogen dRVVT Confirm Interp Factor V Activity POC ABG pH 7.457 H POC ABG pCO2 32.1 L POC ABG pO2 76 L Sodium 132 L Potassium Chloride 94.7 L Carbon Dioxide BUN 53 H Creatinine 2.9 H Glucose 151 H POC Glucose 149 H Lactic Acid Calcium Phosphorus Magnesium Direct Bilirubin AST ALT Alkaline Phosphatase Lactate Dehydrogenase Troponin T C-Reactive Protein Total Protein Albumin Prealbumin Triglycerides Cholesterol LDL Cholesterol Direct HDL Cholesterol Urine pH Urine WBC (Auto) Urine Creatinine Urine Total Protein Vancomycin Trough Rheumatoid Factor Complement C4 Miscellaneous Test Crossmatch 09/07/16 09/07/16 09/07/16 09:20 11:43 11:43 WBC 19.4 H RBC Hgb 8.3 L Hct 26.4 L D MCV 72 L D MCH 22 L MCHC RDW 17.9 H Plt Count Lymph % (Auto) 8.5 L [place] % (Auto) Lymph # [place] # 1.0 H Baso # Seg Neutrophils % 85.8 H Seg Neuts % (Manual) Lymphocytes % (Manual) Monocytes % (Manual) Eosinophils % (Manual) Basophils % (Manual) Nucleated RBC % Seg Neutrophils # 16.6 H Seg Neutrophils # Man Lymphocytes # (Manual) Monocytes # (Manual) Eosinophils # (Manual) PT INR Fibrinogen dRVVT Confirm Interp Factor V Activity POC ABG pH POC ABG pCO2 POC ABG pO2 Sodium 134 L Potassium Chloride 97.2 L Carbon Dioxide 20 L BUN 58 H Creatinine 2.9 H Glucose 147 H POC Glucose Lactic Acid Calcium Phosphorus 2.40 L Magnesium 2.40 H Direct Bilirubin AST ALT Alkaline Phosphatase Lactate Dehydrogenase Troponin T C-Reactive Protein Total Protein 5.8 L Albumin 2.2 L Prealbumin Triglycerides Cholesterol LDL Cholesterol Direct HDL Cholesterol Urine pH Urine WBC (Auto) Urine Creatinine Urine Total Protein Vancomycin Trough Rheumatoid Factor Complement C4 58 H Miscellaneous Test Crossmatch 09/07/16 09/07/16 09/07/16 11:50 16:00 17:31 WBC RBC Hgb Hct MCV MCH MCHC RDW Plt Count Lymph % (Auto) [place] % (Auto) Lymph # [place] # Baso # Seg Neutrophils % Seg Neuts % (Manual) Lymphocytes % (Manual) Monocytes % (Manual) Eosinophils % (Manual) Basophils % (Manual) Nucleated RBC % Seg Neutrophils # Seg Neutrophils # Man Lymphocytes # (Manual) Monocytes # (Manual) Eosinophils # (Manual) PT INR Fibrinogen dRVVT Confirm Interp Factor V Activity POC ABG pH POC ABG pCO2 POC ABG pO2 158 H Sodium Potassium Chloride Carbon Dioxide BUN Creatinine Glucose POC Glucose 175 H Lactic Acid Calcium Phosphorus Magnesium Direct Bilirubin AST ALT Alkaline Phosphatase Lactate Dehydrogenase Troponin T C-Reactive Protein Total Protein Albumin Prealbumin Triglycerides Cholesterol LDL Cholesterol Direct HDL Cholesterol Urine pH Urine WBC (Auto) Urine Creatinine 66.3 H Urine Total Protein Vancomycin Trough Rheumatoid Factor Complement C4 Miscellaneous Test Crossmatch 09/07/16 09/08/16 09/08/16 23:50 05:46 06:18 WBC 17.8 H RBC 3.58 L Hgb 8.1 L Hct 25.5 L MCV 71 L MCH 23 L MCHC RDW 18.4 H Plt Count Lymph % (Auto) [place] % (Auto) Lymph # [place] # Baso # Seg Neutrophils % Seg Neuts % (Manual) 92.0 H Lymphocytes % (Manual) 6.0 L Monocytes % (Manual) Eosinophils % (Manual) Basophils % (Manual) Nucleated RBC % Seg Neutrophils # Seg Neutrophils # Man 16.4 H Lymphocytes # (Manual) 1.1 L Monocytes # (Manual) Eosinophils # (Manual) PT INR Fibrinogen dRVVT Confirm Interp Factor V Activity POC ABG pH POC ABG pCO2 34.3 L POC ABG pO2 71 L Sodium Potassium Chloride Carbon Dioxide BUN Creatinine Glucose POC Glucose 216 H Lactic Acid Calcium Phosphorus Magnesium Direct Bilirubin AST ALT Alkaline Phosphatase Lactate Dehydrogenase Troponin T C-Reactive Protein Total Protein Albumin Prealbumin Triglycerides Cholesterol LDL Cholesterol Direct HDL Cholesterol Urine pH Urine WBC (Auto) Urine Creatinine Urine Total Protein Vancomycin Trough Rheumatoid Factor Complement C4 Miscellaneous Test Crossmatch 09/08/16 09/08/16 09/08/16 06:18 06:51 10:55 WBC RBC Hgb Hct MCV MCH MCHC RDW Plt Count Lymph % (Auto) [place] % (Auto) Lymph # [place] # Baso # Seg Neutrophils % Seg Neuts % (Manual) Lymphocytes % (Manual) Monocytes % (Manual) Eosinophils % (Manual) Basophils % (Manual) Nucleated RBC % Seg Neutrophils # Seg Neutrophils # Man Lymphocytes # (Manual) Monocytes # (Manual) Eosinophils # (Manual) PT INR Fibrinogen dRVVT Confirm Interp Factor V Activity POC ABG pH POC ABG pCO2 POC ABG pO2 Sodium 133 L Potassium Chloride 96.9 L Carbon Dioxide 20 L BUN 63 H Creatinine 2.7 H Glucose 195 H POC Glucose 204 H 169 H Lactic Acid Calcium Phosphorus Magnesium Direct Bilirubin AST ALT Alkaline Phosphatase Lactate Dehydrogenase Troponin T C-Reactive Protein Total Protein Albumin Prealbumin Triglycerides Cholesterol LDL Cholesterol Direct HDL Cholesterol Urine pH Urine WBC (Auto) Urine Creatinine Urine Total Protein Vancomycin Trough Rheumatoid Factor Complement C4 Miscellaneous Test Crossmatch 09/08/16 09/08/16 09/08/16 11:48 11:48 11:48 WBC RBC Hgb Hct MCV MCH MCHC RDW Plt Count Lymph % (Auto) [place] % (Auto) Lymph # [place] # Baso # Seg Neutrophils % Seg Neuts % (Manual) Lymphocytes % (Manual) Monocytes % (Manual) Eosinophils % (Manual) Basophils % (Manual) Nucleated RBC % Seg Neutrophils # Seg Neutrophils # Man Lymphocytes # (Manual) Monocytes # (Manual) Eosinophils # (Manual) PT INR Fibrinogen 750 H dRVVT Confirm Interp Factor V Activity POC ABG pH POC ABG pCO2 POC ABG pO2 Sodium Potassium Chloride Carbon Dioxide BUN Creatinine Glucose POC Glucose Lactic Acid Calcium Phosphorus Magnesium Direct Bilirubin AST ALT Alkaline Phosphatase Lactate Dehydrogenase Troponin T C-Reactive Protein 15.70 H Total Protein Albumin Prealbumin Triglycerides Cholesterol LDL Cholesterol Direct HDL Cholesterol Urine pH Urine WBC (Auto) Urine Creatinine Urine Total Protein Vancomycin Trough Rheumatoid Factor 24 H Complement C4 Miscellaneous Test Crossmatch 09/08/16 09/08/16 09/09/16 15:35 18:25 00:24 WBC RBC Hgb Hct MCV MCH MCHC RDW Plt Count Lymph % (Auto) [place] % (Auto) Lymph # [place] # Baso # Seg Neutrophils % Seg Neuts % (Manual) Lymphocytes % (Manual) Monocytes % (Manual) Eosinophils % (Manual) Basophils % (Manual) Nucleated RBC % Seg Neutrophils # Seg Neutrophils # Man Lymphocytes # (Manual) Monocytes # (Manual) Eosinophils # (Manual) PT INR Fibrinogen dRVVT Confirm Interp Factor V Activity 182 H POC ABG pH POC ABG pCO2 POC ABG pO2 Sodium Potassium Chloride Carbon Dioxide BUN Creatinine Glucose POC Glucose 184 H 216 H Lactic Acid Calcium Phosphorus Magnesium Direct Bilirubin AST ALT Alkaline Phosphatase Lactate Dehydrogenase Troponin T C-Reactive Protein Total Protein Albumin Prealbumin Triglycerides Cholesterol LDL Cholesterol Direct HDL Cholesterol Urine pH Urine WBC (Auto) Urine Creatinine Urine Total Protein Vancomycin Trough Rheumatoid Factor Complement C4 Miscellaneous Test Crossmatch 09/09/16 09/09/16 09/09/16 03:00 03:00 04:04 WBC 27.9 H RBC Hgb 8.7 L Hct 28.1 L MCV 72 L MCH 22 L MCHC RDW 18.4 H Plt Count 485 H Lymph % (Auto) [place] % (Auto) Lymph # [place] # Baso # Seg Neutrophils % Seg Neuts % (Manual) 77.0 H Lymphocytes % (Manual) 9.0 L Monocytes % (Manual) Eosinophils % (Manual) Basophils % (Manual) Nucleated RBC % Seg Neutrophils # Seg Neutrophils # Man 21.5 H Lymphocytes # (Manual) Monocytes # (Manual) 2.0 H Eosinophils # (Manual) PT INR Fibrinogen dRVVT Confirm Interp Factor V Activity POC ABG pH POC ABG pCO2 POC ABG pO2 121 H Sodium 135 L Potassium Chloride 96.3 L Carbon Dioxide 21 L BUN 83 H Creatinine 3.0 H Glucose 135 H POC Glucose Lactic Acid Calcium Phosphorus Magnesium Direct Bilirubin AST ALT Alkaline Phosphatase Lactate Dehydrogenase Troponin T C-Reactive Protein Total Protein Albumin Prealbumin Triglycerides Cholesterol LDL Cholesterol Direct HDL Cholesterol Urine pH Urine WBC (Auto) Urine Creatinine Urine Total Protein Vancomycin Trough Rheumatoid Factor Complement C4 Miscellaneous Test Crossmatch 09/09/16 09/09/16 09/09/16 05:41 11:55 14:13 WBC RBC Hgb Hct MCV MCH MCHC RDW Plt Count Lymph % (Auto) [place] % (Auto) Lymph # [place] # Baso # Seg Neutrophils % Seg Neuts % (Manual) Lymphocytes % (Manual) Monocytes % (Manual) Eosinophils % (Manual) Basophils % (Manual) Nucleated RBC % Seg Neutrophils # Seg Neutrophils # Man Lymphocytes # (Manual) Monocytes # (Manual) Eosinophils # (Manual) PT INR Fibrinogen dRVVT Confirm Interp Factor V Activity POC ABG pH POC ABG pCO2 POC ABG pO2 Sodium Potassium Chloride Carbon Dioxide BUN Creatinine Glucose POC Glucose 155 H 186 H Lactic Acid Calcium Phosphorus Magnesium Direct Bilirubin AST ALT Alkaline Phosphatase Lactate Dehydrogenase Troponin T C-Reactive Protein Total Protein Albumin Prealbumin Triglycerides Cholesterol LDL Cholesterol Direct HDL Cholesterol Urine pH Urine WBC (Auto) 25.0 H Urine Creatinine Urine Total Protein Vancomycin Trough Rheumatoid Factor Complement C4 Miscellaneous Test Crossmatch 09/09/16 09/09/16 09/10/16 17:33 23:13 05:09 WBC RBC Hgb Hct MCV MCH MCHC RDW Plt Count Lymph % (Auto) [place] % (Auto) Lymph # [place] # Baso # Seg Neutrophils % Seg Neuts % (Manual) Lymphocytes % (Manual) Monocytes % (Manual) Eosinophils % (Manual) Basophils % (Manual) Nucleated RBC % Seg Neutrophils # Seg Neutrophils # Man Lymphocytes # (Manual) Monocytes # (Manual) Eosinophils # (Manual) PT INR Fibrinogen dRVVT Confirm Interp Factor V Activity POC ABG pH POC ABG pCO2 POC ABG pO2 74 L Sodium Potassium Chloride Carbon Dioxide BUN Creatinine Glucose POC Glucose 211 H 215 H Lactic Acid Calcium Phosphorus Magnesium Direct Bilirubin AST ALT Alkaline Phosphatase Lactate Dehydrogenase Troponin T C-Reactive Protein Total Protein Albumin Prealbumin Triglycerides Cholesterol LDL Cholesterol Direct HDL Cholesterol Urine pH Urine WBC (Auto) Urine Creatinine Urine Total Protein Vancomycin Trough Rheumatoid Factor Complement C4 Miscellaneous Test Crossmatch 09/10/16 09/10/16 09/10/16 05:17 05:17 11:31 WBC 15.8 H RBC 3.25 L Hgb 7.3 L Hct 22.9 L MCV 71 L MCH 23 L MCHC RDW 18.4 H Plt Count Lymph % (Auto) [place] % (Auto) Lymph # [place] # Baso # Seg Neutrophils % Seg Neuts % (Manual) 91.0 H Lymphocytes % (Manual) 4.0 L Monocytes % (Manual) Eosinophils % (Manual) Basophils % (Manual) Nucleated RBC % Seg Neutrophils # Seg Neutrophils # Man 14.4 H Lymphocytes # (Manual) 0.6 L Monocytes # (Manual) Eosinophils # (Manual) PT INR Fibrinogen dRVVT Confirm Interp Factor V Activity POC ABG pH POC ABG pCO2 POC ABG pO2 Sodium Potassium Chloride Carbon Dioxide 21 L BUN 93 H Creatinine 2.9 H Glucose 146 H POC Glucose 188 H Lactic Acid Calcium 8.1 L Phosphorus Magnesium Direct Bilirubin AST ALT Alkaline Phosphatase Lactate Dehydrogenase Troponin T C-Reactive Protein Total Protein Albumin Prealbumin Triglycerides Cholesterol LDL Cholesterol Direct HDL Cholesterol Urine pH Urine WBC (Auto) Urine Creatinine Urine Total Protein Vancomycin Trough Rheumatoid Factor Complement C4 Miscellaneous Test Crossmatch 09/10/16 09/10/16 09/10/16 13:17 17:20 23:32 WBC RBC Hgb Hct MCV MCH MCHC RDW Plt Count Lymph % (Auto) [place] % (Auto) Lymph # [place] # Baso # Seg Neutrophils % Seg Neuts % (Manual) Lymphocytes % (Manual) Monocytes % (Manual) Eosinophils % (Manual) Basophils % (Manual) Nucleated RBC % Seg Neutrophils # Seg Neutrophils # Man Lymphocytes # (Manual) Monocytes # (Manual) Eosinophils # (Manual) PT INR Fibrinogen dRVVT Confirm Interp Factor V Activity POC ABG pH POC ABG pCO2 POC ABG pO2 Sodium Potassium Chloride Carbon Dioxide BUN Creatinine Glucose POC Glucose 199 H 186 H Lactic Acid Calcium Phosphorus Magnesium Direct Bilirubin AST ALT Alkaline Phosphatase Lactate Dehydrogenase Troponin T C-Reactive Protein Total Protein Albumin Prealbumin Triglycerides Cholesterol LDL Cholesterol Direct HDL Cholesterol Urine pH Urine WBC (Auto) Urine Creatinine Urine Total Protein Vancomycin Trough Rheumatoid Factor Complement C4 Miscellaneous Test Crossmatch See Detail 09/11/16 09/11/16 09/11/16 05:10 05:10 05:17 WBC 28.4 H RBC Hgb 9.2 L Hct 29.3 L D MCV 73 L MCH 23 L MCHC RDW 18.9 H Plt Count 452 H Lymph % (Auto) [place] % (Auto) Lymph # [place] # Baso # Seg Neutrophils % Seg Neuts % (Manual) 89.5 H Lymphocytes % (Manual) 2.0 L Monocytes % (Manual) Eosinophils % (Manual) Basophils % (Manual) Nucleated RBC % Seg Neutrophils # Seg Neutrophils # Man 25.4 H Lymphocytes # (Manual) 0.6 L Monocytes # (Manual) 1.3 H Eosinophils # (Manual) PT INR Fibrinogen dRVVT Confirm Interp Factor V Activity POC ABG pH POC ABG pCO2 POC ABG pO2 Sodium 136 L Potassium Chloride Carbon Dioxide 18 L BUN 107 H Creatinine 2.6 H Glucose 187 H POC Glucose 230 H Lactic Acid Calcium 8.3 L Phosphorus Magnesium Direct Bilirubin AST ALT Alkaline Phosphatase Lactate Dehydrogenase Troponin T C-Reactive Protein Total Protein Albumin Prealbumin Triglycerides Cholesterol LDL Cholesterol Direct HDL Cholesterol Urine pH Urine WBC (Auto) Urine Creatinine Urine Total Protein Vancomycin Trough Rheumatoid Factor Complement C4 Miscellaneous Test Crossmatch 09/11/16 09/11/16 09/11/16 05:55 12:02 17:32 WBC RBC Hgb Hct MCV MCH MCHC RDW Plt Count Lymph % (Auto) [place] % (Auto) Lymph # [place] # Baso # Seg Neutrophils % Seg Neuts % (Manual) Lymphocytes % (Manual) Monocytes % (Manual) Eosinophils % (Manual) Basophils % (Manual) Nucleated RBC % Seg Neutrophils # Seg Neutrophils # Man Lymphocytes # (Manual) Monocytes # (Manual) Eosinophils # (Manual) PT INR Fibrinogen dRVVT Confirm Interp Factor V Activity POC ABG pH POC ABG pCO2 33.8 L POC ABG pO2 Sodium Potassium Chloride Carbon Dioxide BUN Creatinine Glucose POC Glucose 191 H 239 H Lactic Acid Calcium Phosphorus Magnesium Direct Bilirubin AST ALT Alkaline Phosphatase Lactate Dehydrogenase Troponin T C-Reactive Protein Total Protein Albumin Prealbumin Triglycerides Cholesterol LDL Cholesterol Direct HDL Cholesterol Urine pH Urine WBC (Auto) Urine Creatinine Urine Total Protein Vancomycin Trough Rheumatoid Factor Complement C4 Miscellaneous Test Crossmatch 09/11/16 09/12/16 09/12/16 23:52 05:09 05:32 WBC RBC Hgb Hct MCV MCH MCHC RDW Plt Count Lymph % (Auto) [place] % (Auto) Lymph # [place] # Baso # Seg Neutrophils % Seg Neuts % (Manual) Lymphocytes % (Manual) Monocytes % (Manual) Eosinophils % (Manual) Basophils % (Manual) Nucleated RBC % Seg Neutrophils # Seg Neutrophils # Man Lymphocytes # (Manual) Monocytes # (Manual) Eosinophils # (Manual) PT INR Fibrinogen dRVVT Confirm Interp Factor V Activity POC ABG pH POC ABG pCO2 34.6 L POC ABG pO2 Sodium Potassium Chloride Carbon Dioxide BUN Creatinine Glucose POC Glucose 265 H 184 H Lactic Acid Calcium Phosphorus Magnesium Direct Bilirubin AST ALT Alkaline Phosphatase Lactate Dehydrogenase Troponin T C-Reactive Protein Total Protein Albumin Prealbumin Triglycerides Cholesterol LDL Cholesterol Direct HDL Cholesterol Urine pH Urine WBC (Auto) Urine Creatinine Urine Total Protein Vancomycin Trough Rheumatoid Factor Complement C4 Miscellaneous Test Crossmatch 09/12/16 09/12/16 09/12/16 06:45 06:45 07:22 WBC 31.7 H RBC 3.54 L Hgb 8.3 L Hct 25.9 L MCV 73 L MCH 23 L MCHC RDW 18.9 H Plt Count Lymph % (Auto) [place] % (Auto) Lymph # [place] # Baso # Seg Neutrophils % Seg Neuts % (Manual) 88.5 H Lymphocytes % (Manual) 4.5 L Monocytes % (Manual) Eosinophils % (Manual) Basophils % (Manual) Nucleated RBC % Seg Neutrophils # Seg Neutrophils # Man 28.1 H Lymphocytes # (Manual) Monocytes # (Manual) 1.0 H Eosinophils # (Manual) PT INR Fibrinogen dRVVT Confirm Interp Factor V Activity POC ABG pH POC ABG pCO2 POC ABG pO2 Sodium Potassium Chloride Carbon Dioxide 20 L BUN 115 H Creatinine 2.7 H Glucose 165 H POC Glucose Lactic Acid Calcium 8.0 L Phosphorus Magnesium Direct Bilirubin AST ALT Alkaline Phosphatase Lactate Dehydrogenase Troponin T C-Reactive Protein Total Protein Albumin Prealbumin Triglycerides 217 H Cholesterol LDL Cholesterol Direct HDL Cholesterol Urine pH Urine WBC (Auto) Urine Creatinine Urine Total Protein Vancomycin Trough Rheumatoid Factor Complement C4 Miscellaneous Test Crossmatch 09/12/16 09/12/16 09/12/16 07:22 09:59 12:21 WBC RBC Hgb Hct MCV MCH MCHC RDW Plt Count Lymph % (Auto) [place] % (Auto) Lymph # [place] # Baso # Seg Neutrophils % Seg Neuts % (Manual) Lymphocytes % (Manual) Monocytes % (Manual) Eosinophils % (Manual) Basophils % (Manual) Nucleated RBC % Seg Neutrophils # Seg Neutrophils # Man Lymphocytes # (Manual) Monocytes # (Manual) Eosinophils # (Manual) PT INR Fibrinogen dRVVT Confirm Interp Positive H Factor V Activity POC ABG pH POC ABG pCO2 POC ABG pO2 Sodium Potassium Chloride Carbon Dioxide BUN Creatinine Glucose POC Glucose 224 H Lactic Acid Calcium Phosphorus Magnesium Direct Bilirubin AST ALT Alkaline Phosphatase Lactate Dehydrogenase Troponin T C-Reactive Protein 1.70 H Total Protein Albumin Prealbumin Triglycerides Cholesterol LDL Cholesterol Direct HDL Cholesterol Urine pH Urine WBC (Auto) Urine Creatinine Urine Total Protein Vancomycin Trough Rheumatoid Factor Complement C4 Miscellaneous Test Crossmatch 09/12/16 09/12/16 09/13/16 16:51 23:28 04:00 WBC 45.0 H* RBC Hgb 9.4 L Hct MCV 75 L MCH 23 L MCHC RDW 19.0 H Plt Count 470 H Lymph % (Auto) [place] % (Auto) Lymph # [place] # Baso # Seg Neutrophils % Seg Neuts % (Manual) 89.0 H Lymphocytes % (Manual) 5.0 L Monocytes % (Manual) Eosinophils % (Manual) Basophils % (Manual) Nucleated RBC % Seg Neutrophils # Seg Neutrophils # Man 40.1 H Lymphocytes # (Manual) Monocytes # (Manual) Eosinophils # (Manual) PT INR Fibrinogen dRVVT Confirm Interp Factor V Activity POC ABG pH POC ABG pCO2 POC ABG pO2 Sodium Potassium Chloride Carbon Dioxide BUN Creatinine Glucose POC Glucose 169 H 150 H Lactic Acid Calcium Phosphorus Magnesium Direct Bilirubin AST ALT Alkaline Phosphatase Lactate Dehydrogenase Troponin T C-Reactive Protein Total Protein Albumin Prealbumin Triglycerides Cholesterol LDL Cholesterol Direct HDL Cholesterol Urine pH Urine WBC (Auto) Urine Creatinine Urine Total Protein Vancomycin Trough Rheumatoid Factor Complement C4 Miscellaneous Test Crossmatch 09/13/16 09/13/16 09/13/16 04:00 11:26 17:31 WBC RBC Hgb Hct MCV MCH MCHC RDW Plt Count Lymph % (Auto) [place] % (Auto) Lymph # [place] # Baso # Seg Neutrophils % Seg Neuts % (Manual) Lymphocytes % (Manual) Monocytes % (Manual) Eosinophils % (Manual) Basophils % (Manual) Nucleated RBC % Seg Neutrophils # Seg Neutrophils # Man Lymphocytes # (Manual) Monocytes # (Manual) Eosinophils # (Manual) PT INR Fibrinogen dRVVT Confirm Interp Factor V Activity POC ABG pH POC ABG pCO2 POC ABG pO2 Sodium Potassium Chloride Carbon Dioxide 20 L BUN 116 H Creatinine 3.0 H Glucose 172 H POC Glucose 140 H 183 H Lactic Acid Calcium Phosphorus Magnesium Direct Bilirubin AST ALT Alkaline Phosphatase Lactate Dehydrogenase Troponin T C-Reactive Protein Total Protein 6.2 L Albumin 2.9 L Prealbumin Triglycerides Cholesterol LDL Cholesterol Direct HDL Cholesterol Urine pH Urine WBC (Auto) Urine Creatinine Urine Total Protein Vancomycin Trough Rheumatoid Factor Complement C4 Miscellaneous Test Crossmatch 09/13/16 09/14/16 09/14/16 23:23 04:06 04:07 WBC 29.4 H RBC Hgb 8.9 L Hct 27.3 L MCV 75 L MCH 24 L MCHC RDW 19.1 H Plt Count Lymph % (Auto) [place] % (Auto) Lymph # [place] # Baso # Seg Neutrophils % Seg Neuts % (Manual) 84.0 H Lymphocytes % (Manual) 6.0 L Monocytes % (Manual) 9.0 H Eosinophils % (Manual) Basophils % (Manual) Nucleated RBC % Seg Neutrophils # Seg Neutrophils # Man 24.7 H Lymphocytes # (Manual) Monocytes # (Manual) 2.6 H Eosinophils # (Manual) PT INR Fibrinogen dRVVT Confirm Interp Factor V Activity POC ABG pH 7.342 L POC ABG pCO2 POC ABG pO2 116 H Sodium Potassium Chloride Carbon Dioxide BUN Creatinine Glucose POC Glucose 154 H Lactic Acid Calcium Phosphorus Magnesium Direct Bilirubin AST ALT Alkaline Phosphatase Lactate Dehydrogenase Troponin T C-Reactive Protein Total Protein Albumin Prealbumin Triglycerides Cholesterol LDL Cholesterol Direct HDL Cholesterol Urine pH Urine WBC (Auto) Urine Creatinine Urine Total Protein Vancomycin Trough Rheumatoid Factor Complement C4 Miscellaneous Test Crossmatch 09/14/16 09/14/16 09/14/16 04:07 05:29 12:19 WBC RBC Hgb Hct MCV MCH MCHC RDW Plt Count Lymph % (Auto) [place] % (Auto) Lymph # [place] # Baso # Seg Neutrophils % Seg Neuts % (Manual) Lymphocytes % (Manual) Monocytes % (Manual) Eosinophils % (Manual) Basophils % (Manual) Nucleated RBC % Seg Neutrophils # Seg Neutrophils # Man Lymphocytes # (Manual) Monocytes # (Manual) Eosinophils # (Manual) PT INR Fibrinogen dRVVT Confirm Interp Factor V Activity POC ABG pH POC ABG pCO2 POC ABG pO2 Sodium 136 L Potassium Chloride Carbon Dioxide 18 L BUN 121 H Creatinine 2.8 H Glucose 214 H POC Glucose 239 H 181 H Lactic Acid Calcium Phosphorus Magnesium Direct Bilirubin AST ALT Alkaline Phosphatase Lactate Dehydrogenase Troponin T C-Reactive Protein Total Protein Albumin Prealbumin Triglycerides Cholesterol LDL Cholesterol Direct HDL Cholesterol Urine pH Urine WBC (Auto) Urine Creatinine Urine Total Protein Vancomycin Trough Rheumatoid Factor Complement C4 Miscellaneous Test Crossmatch 09/14/16 09/14/16 09/15/16 18:12 23:37 05:00 WBC 26.1 H RBC 3.05 L Hgb 7.2 L Hct 22.9 L MCV 75 L MCH 24 L MCHC RDW 19.0 H Plt Count Lymph % (Auto) [place] % (Auto) Lymph # [place] # Baso # Seg Neutrophils % Seg Neuts % (Manual) Lymphocytes % (Manual) Monocytes % (Manual) Eosinophils % (Manual) Basophils % (Manual) Nucleated RBC % Seg Neutrophils # Seg Neutrophils # Man Lymphocytes # (Manual) Monocytes # (Manual) Eosinophils # (Manual) PT INR Fibrinogen dRVVT Confirm Interp Factor V Activity POC ABG pH POC ABG pCO2 POC ABG pO2 Sodium Potassium Chloride Carbon Dioxide BUN Creatinine Glucose POC Glucose 266 H 154 H Lactic Acid Calcium Phosphorus Magnesium Direct Bilirubin AST ALT Alkaline Phosphatase Lactate Dehydrogenase Troponin T C-Reactive Protein Total Protein Albumin Prealbumin Triglycerides Cholesterol LDL Cholesterol Direct HDL Cholesterol Urine pH Urine WBC (Auto) Urine Creatinine Urine Total Protein Vancomycin Trough Rheumatoid Factor Complement C4 Miscellaneous Test Crossmatch 09/15/16 09/15/16 09/15/16 05:00 05:17 12:45 WBC RBC Hgb Hct MCV MCH MCHC RDW Plt Count Lymph % (Auto) [place] % (Auto) Lymph # [place] # Baso # Seg Neutrophils % Seg Neuts % (Manual) Lymphocytes % (Manual) Monocytes % (Manual) Eosinophils % (Manual) Basophils % (Manual) Nucleated RBC % Seg Neutrophils # Seg Neutrophils # Man Lymphocytes # (Manual) Monocytes # (Manual) Eosinophils # (Manual) PT INR Fibrinogen dRVVT Confirm Interp Factor V Activity POC ABG pH POC ABG pCO2 POC ABG pO2 Sodium Potassium 5.2 H Chloride Carbon Dioxide 18 L BUN 139 H Creatinine 3.7 H Glucose 227 H POC Glucose 226 H 244 H Lactic Acid Calcium 8.3 L Phosphorus Magnesium Direct Bilirubin AST ALT Alkaline Phosphatase Lactate Dehydrogenase Troponin T C-Reactive Protein Total Protein Albumin Prealbumin Triglycerides Cholesterol LDL Cholesterol Direct HDL Cholesterol Urine pH Urine WBC (Auto) Urine Creatinine Urine Total Protein Vancomycin Trough Rheumatoid Factor Complement C4 Miscellaneous Test Crossmatch 09/15/16 09/15/16 09/15/16 14:32 17:33 23:35 WBC RBC Hgb Hct MCV MCH MCHC RDW Plt Count Lymph % (Auto) [place] % (Auto) Lymph # [place] # Baso # Seg Neutrophils % Seg Neuts % (Manual) Lymphocytes % (Manual) Monocytes % (Manual) Eosinophils % (Manual) Basophils % (Manual) Nucleated RBC % Seg Neutrophils # Seg Neutrophils # Man Lymphocytes # (Manual) Monocytes # (Manual) Eosinophils # (Manual) PT INR Fibrinogen dRVVT Confirm Interp Factor V Activity POC ABG pH POC ABG pCO2 27.7 L POC ABG pO2 120 H Sodium Potassium Chloride Carbon Dioxide BUN Creatinine Glucose POC Glucose 232 H 167 H Lactic Acid Calcium Phosphorus Magnesium Direct Bilirubin AST ALT Alkaline Phosphatase Lactate Dehydrogenase Troponin T C-Reactive Protein Total Protein Albumin Prealbumin Triglycerides Cholesterol LDL Cholesterol Direct HDL Cholesterol Urine pH Urine WBC (Auto) Urine Creatinine Urine Total Protein Vancomycin Trough Rheumatoid Factor Complement C4 Miscellaneous Test Crossmatch 09/16/16 09/16/16 09/16/16 03:58 10:27 10:27 WBC 19.0 H RBC 2.77 L Hgb 6.5 L Hct 20.9 L MCV 76 L MCH 23 L MCHC RDW 19.3 H Plt Count Lymph % (Auto) 11.0 L [place] % (Auto) Lymph # [place] # 1.1 H Baso # Seg Neutrophils % 82.5 H Seg Neuts % (Manual) Lymphocytes % (Manual) Monocytes % (Manual) Eosinophils % (Manual) Basophils % (Manual) Nucleated RBC % Seg Neutrophils # 15.7 H Seg Neutrophils # Man Lymphocytes # (Manual) Monocytes # (Manual) Eosinophils # (Manual) PT INR Fibrinogen dRVVT Confirm Interp Factor V Activity POC ABG pH POC ABG pCO2 POC ABG pO2 Sodium Potassium Chloride 109.3 H Carbon Dioxide 18 L BUN 139 H Creatinine 4.1 H Glucose 144 H POC Glucose 146 H Lactic Acid Calcium 8.1 L Phosphorus Magnesium Direct Bilirubin AST ALT Alkaline Phosphatase Lactate Dehydrogenase Troponin T C-Reactive Protein Total Protein Albumin Prealbumin Triglycerides Cholesterol LDL Cholesterol Direct HDL Cholesterol Urine pH Urine WBC (Auto) Urine Creatinine Urine Total Protein Vancomycin Trough Rheumatoid Factor Complement C4 Miscellaneous Test Crossmatch 09/16/16 09/16/16 09/16/16 12:04 12:10 13:55 WBC RBC Hgb Hct MCV MCH MCHC RDW Plt Count Lymph % (Auto) [place] % (Auto) Lymph # [place] # Baso # Seg Neutrophils % Seg Neuts % (Manual) Lymphocytes % (Manual) Monocytes % (Manual) Eosinophils % (Manual) Basophils % (Manual) Nucleated RBC % Seg Neutrophils # Seg Neutrophils # Man Lymphocytes # (Manual) Monocytes # (Manual) Eosinophils # (Manual) PT INR Fibrinogen dRVVT Confirm Interp Factor V Activity POC ABG pH POC ABG pCO2 32.9 L POC ABG pO2 Sodium Potassium Chloride Carbon Dioxide BUN Creatinine Glucose POC Glucose 185 H Lactic Acid Calcium Phosphorus Magnesium Direct Bilirubin AST ALT Alkaline Phosphatase Lactate Dehydrogenase Troponin T C-Reactive Protein Total Protein Albumin Prealbumin Triglycerides Cholesterol LDL Cholesterol Direct HDL Cholesterol Urine pH Urine WBC (Auto) Urine Creatinine Urine Total Protein Vancomycin Trough Rheumatoid Factor Complement C4 Miscellaneous Test Crossmatch See Detail 09/16/16 09/16/16 09/16/16 17:55 19:19 23:48 WBC RBC Hgb Hct MCV MCH MCHC RDW Plt Count Lymph % (Auto) [place] % (Auto) Lymph # [place] # Baso # Seg Neutrophils % Seg Neuts % (Manual) Lymphocytes % (Manual) Monocytes % (Manual) Eosinophils % (Manual) Basophils % (Manual) Nucleated RBC % Seg Neutrophils # Seg Neutrophils # Man Lymphocytes # (Manual) Monocytes # (Manual) Eosinophils # (Manual) PT INR Fibrinogen dRVVT Confirm Interp Factor V Activity POC ABG pH POC ABG pCO2 POC ABG pO2 Sodium Potassium Chloride Carbon Dioxide BUN Creatinine Glucose POC Glucose 222 H 107 H Lactic Acid Calcium Phosphorus Magnesium Direct Bilirubin AST ALT Alkaline Phosphatase Lactate Dehydrogenase Troponin T C-Reactive Protein Total Protein Albumin Prealbumin Triglycerides Cholesterol LDL Cholesterol Direct HDL Cholesterol Urine pH Urine WBC (Auto) Urine Creatinine 47.4 H Urine Total Protein 16 H Vancomycin Trough Rheumatoid Factor Complement C4 Miscellaneous Test Crossmatch 09/17/16 09/17/16 09/17/16 03:45 03:45 04:55 WBC 19.6 H RBC 3.41 L Hgb 8.5 L Hct 26.7 L MCV 78 L MCH 25 L MCHC RDW 19.9 H Plt Count Lymph % (Auto) 9.3 L [place] % (Auto) Lymph # [place] # 1.2 H Baso # Seg Neutrophils % 83.9 H Seg Neuts % (Manual) Lymphocytes % (Manual) Monocytes % (Manual) Eosinophils % (Manual) Basophils % (Manual) Nucleated RBC % Seg Neutrophils # 16.4 H Seg Neutrophils # Man Lymphocytes # (Manual) Monocytes # (Manual) Eosinophils # (Manual) PT INR Fibrinogen dRVVT Confirm Interp Factor V Activity POC ABG pH POC ABG pCO2 POC ABG pO2 Sodium 146 H Potassium 5.1 H Chloride 110.9 H Carbon Dioxide 16 L BUN 146 H Creatinine 4.0 H Glucose 108 H POC Glucose 133 H Lactic Acid Calcium Phosphorus Magnesium 3.00 H Direct Bilirubin AST ALT Alkaline Phosphatase Lactate Dehydrogenase Troponin T C-Reactive Protein Total Protein Albumin Prealbumin Triglycerides Cholesterol LDL Cholesterol Direct HDL Cholesterol Urine pH Urine WBC (Auto) Urine Creatinine Urine Total Protein Vancomycin Trough Rheumatoid Factor Complement C4 Miscellaneous Test Crossmatch 09/17/16 09/17/16 09/17/16 11:15 17:33 23:47 WBC RBC Hgb Hct MCV MCH MCHC RDW Plt Count Lymph % (Auto) [place] % (Auto) Lymph # [place] # Baso # Seg Neutrophils % Seg Neuts % (Manual) Lymphocytes % (Manual) Monocytes % (Manual) Eosinophils % (Manual) Basophils % (Manual) Nucleated RBC % Seg Neutrophils # Seg Neutrophils # Man Lymphocytes # (Manual) Monocytes # (Manual) Eosinophils # (Manual) PT INR Fibrinogen dRVVT Confirm Interp Factor V Activity POC ABG pH POC ABG pCO2 POC ABG pO2 Sodium Potassium Chloride Carbon Dioxide BUN Creatinine Glucose POC Glucose 176 H 246 H 148 H Lactic Acid Calcium Phosphorus Magnesium Direct Bilirubin AST ALT Alkaline Phosphatase Lactate Dehydrogenase Troponin T C-Reactive Protein Total Protein Albumin Prealbumin Triglycerides Cholesterol LDL Cholesterol Direct HDL Cholesterol Urine pH Urine WBC (Auto) Urine Creatinine Urine Total Protein Vancomycin Trough Rheumatoid Factor Complement C4 Miscellaneous Test Crossmatch 09/18/16 09/18/16 09/18/16 05:33 08:31 08:31 WBC 18.0 H RBC 3.17 L Hgb 9.0 L Hct 25.7 L MCV MCH MCHC 35 H RDW 20.4 H Plt Count Lymph % (Auto) [place] % (Auto) Lymph # [place] # Baso # Seg Neutrophils % Seg Neuts % (Manual) Lymphocytes % (Manual) Monocytes % (Manual) Eosinophils % (Manual) Basophils % (Manual) Nucleated RBC % Seg Neutrophils # Seg Neutrophils # Man Lymphocytes # (Manual) Monocytes # (Manual) Eosinophils # (Manual) PT INR Fibrinogen dRVVT Confirm Interp Factor V Activity POC ABG pH POC ABG pCO2 POC ABG pO2 Sodium Potassium Chloride Carbon Dioxide 15 L BUN 124 H Creatinine 3.8 H Glucose POC Glucose 120 H Lactic Acid Calcium 8.1 L Phosphorus Magnesium Direct Bilirubin AST ALT Alkaline Phosphatase Lactate Dehydrogenase Troponin T C-Reactive Protein Total Protein Albumin Prealbumin Triglycerides Cholesterol LDL Cholesterol Direct HDL Cholesterol Urine pH Urine WBC (Auto) Urine Creatinine Urine Total Protein Vancomycin Trough Rheumatoid Factor Complement C4 Miscellaneous Test Crossmatch 09/18/16 09/18/16 09/18/16 12:03 15:34 17:50 WBC RBC Hgb Hct MCV MCH MCHC RDW Plt Count Lymph % (Auto) [place] % (Auto) Lymph # [place] # Baso # Seg Neutrophils % Seg Neuts % (Manual) Lymphocytes % (Manual) Monocytes % (Manual) Eosinophils % (Manual) Basophils % (Manual) Nucleated RBC % Seg Neutrophils # Seg Neutrophils # Man Lymphocytes # (Manual) Monocytes # (Manual) Eosinophils # (Manual) PT INR Fibrinogen dRVVT Confirm Interp Factor V Activity POC ABG pH POC ABG pCO2 25.7 L POC ABG pO2 66 L Sodium Potassium Chloride Carbon Dioxide BUN Creatinine Glucose POC Glucose 156 H 220 H Lactic Acid Calcium Phosphorus Magnesium Direct Bilirubin AST ALT Alkaline Phosphatase Lactate Dehydrogenase Troponin T C-Reactive Protein Total Protein Albumin Prealbumin Triglycerides Cholesterol LDL Cholesterol Direct HDL Cholesterol Urine pH Urine WBC (Auto) Urine Creatinine Urine Total Protein Vancomycin Trough Rheumatoid Factor Complement C4 Miscellaneous Test Crossmatch 09/19/16 09/19/16 09/19/16 06:21 09:50 09:50 WBC 17.1 H RBC 3.49 L Hgb 9.0 L Hct 28.1 L MCV MCH 26 L MCHC RDW 20.8 H Plt Count Lymph % (Auto) 11.5 L [place] % (Auto) 7.5 H Lymph # [place] # 1.3 H Baso # Seg Neutrophils % 79.8 H Seg Neuts % (Manual) Lymphocytes % (Manual) Monocytes % (Manual) Eosinophils % (Manual) Basophils % (Manual) Nucleated RBC % Seg Neutrophils # 13.7 H Seg Neutrophils # Man Lymphocytes # (Manual) Monocytes # (Manual) Eosinophils # (Manual) PT INR Fibrinogen dRVVT Confirm Interp Factor V Activity POC ABG pH POC ABG pCO2 POC ABG pO2 Sodium Potassium Chloride 108.6 H Carbon Dioxide 15 L BUN 125 H Creatinine 4.1 H Glucose 124 H POC Glucose 119 H Lactic Acid Calcium Phosphorus Magnesium Direct Bilirubin AST ALT Alkaline Phosphatase Lactate Dehydrogenase Troponin T C-Reactive Protein Total Protein Albumin Prealbumin Triglycerides Cholesterol LDL Cholesterol Direct HDL Cholesterol Urine pH Urine WBC (Auto) Urine Creatinine Urine Total Protein Vancomycin Trough Rheumatoid Factor Complement C4 Miscellaneous Test Crossmatch 09/19/16 09/19/16 09/19/16 11:25 17:53 23:36 WBC RBC Hgb Hct MCV MCH MCHC RDW Plt Count Lymph % (Auto) [place] % (Auto) Lymph # [place] # Baso # Seg Neutrophils % Seg Neuts % (Manual) Lymphocytes % (Manual) Monocytes % (Manual) Eosinophils % (Manual) Basophils % (Manual) Nucleated RBC % Seg Neutrophils # Seg Neutrophils # Man Lymphocytes # (Manual) Monocytes # (Manual) Eosinophils # (Manual) PT INR Fibrinogen dRVVT Confirm Interp Factor V Activity POC ABG pH POC ABG pCO2 POC ABG pO2 Sodium Potassium Chloride Carbon Dioxide BUN Creatinine Glucose POC Glucose 160 H 245 H 121 H Lactic Acid Calcium Phosphorus Magnesium Direct Bilirubin AST ALT Alkaline Phosphatase Lactate Dehydrogenase Troponin T C-Reactive Protein Total Protein Albumin Prealbumin Triglycerides Cholesterol LDL Cholesterol Direct HDL Cholesterol Urine pH Urine WBC (Auto) Urine Creatinine Urine Total Protein Vancomycin Trough Rheumatoid Factor Complement C4 Miscellaneous Test Crossmatch 09/20/16 09/20/16 09/20/16 04:10 04:10 04:10 WBC 17.0 H RBC 3.21 L Hgb 8.2 L Hct 25.5 L MCV MCH 26 L MCHC RDW 20.9 H Plt Count Lymph % (Auto) [place] % (Auto) Lymph # [place] # Baso # Seg Neutrophils % Seg Neuts % (Manual) Lymphocytes % (Manual) Monocytes % (Manual) Eosinophils % (Manual) Basophils % (Manual) Nucleated RBC % Seg Neutrophils # Seg Neutrophils # Man Lymphocytes # (Manual) Monocytes # (Manual) Eosinophils # (Manual) PT INR Fibrinogen dRVVT Confirm Interp Factor V Activity POC ABG pH POC ABG pCO2 POC ABG pO2 Sodium Potassium Chloride 111.0 H Carbon Dioxide 16 L BUN 129 H Creatinine 3.7 H Glucose 115 H POC Glucose Lactic Acid Calcium 8.2 L Phosphorus Magnesium Direct Bilirubin AST ALT Alkaline Phosphatase Lactate Dehydrogenase Troponin T C-Reactive Protein Total Protein Albumin Prealbumin Triglycerides 243 H Cholesterol LDL Cholesterol Direct HDL Cholesterol Urine pH Urine WBC (Auto) Urine Creatinine Urine Total Protein Vancomycin Trough Rheumatoid Factor Complement C4 Miscellaneous Test Crossmatch 09/20/16 09/20/16 09/20/16 05:40 11:52 16:50 WBC RBC Hgb Hct MCV MCH MCHC RDW Plt Count Lymph % (Auto) [place] % (Auto) Lymph # [place] # Baso # Seg Neutrophils % Seg Neuts % (Manual) Lymphocytes % (Manual) Monocytes % (Manual) Eosinophils % (Manual) Basophils % (Manual) Nucleated RBC % Seg Neutrophils # Seg Neutrophils # Man Lymphocytes # (Manual) Monocytes # (Manual) Eosinophils # (Manual) PT INR Fibrinogen dRVVT Confirm Interp Factor V Activity POC ABG pH POC ABG pCO2 POC ABG pO2 Sodium Potassium Chloride Carbon Dioxide BUN Creatinine Glucose POC Glucose 131 H 183 H 236 H Lactic Acid Calcium Phosphorus Magnesium Direct Bilirubin AST ALT Alkaline Phosphatase Lactate Dehydrogenase Troponin T C-Reactive Protein Total Protein Albumin Prealbumin Triglycerides Cholesterol LDL Cholesterol Direct HDL Cholesterol Urine pH Urine WBC (Auto) Urine Creatinine Urine Total Protein Vancomycin Trough Rheumatoid Factor Complement C4 Miscellaneous Test Crossmatch 09/20/16 09/21/16 09/21/16 23:51 03:30 04:44 WBC RBC Hgb Hct MCV MCH MCHC RDW Plt Count Lymph % (Auto) [place] % (Auto) Lymph # [place] # Baso # Seg Neutrophils % Seg Neuts % (Manual) Lymphocytes % (Manual) Monocytes % (Manual) Eosinophils % (Manual) Basophils % (Manual) Nucleated RBC % Seg Neutrophils # Seg Neutrophils # Man Lymphocytes # (Manual) Monocytes # (Manual) Eosinophils # (Manual) PT INR Fibrinogen dRVVT Confirm Interp Factor V Activity POC ABG pH POC ABG pCO2 POC ABG pO2 Sodium Potassium Chloride Carbon Dioxide BUN Creatinine Glucose POC Glucose 114 H 141 H Lactic Acid Calcium Phosphorus Magnesium 2.70 H Direct Bilirubin AST ALT Alkaline Phosphatase Lactate Dehydrogenase Troponin T C-Reactive Protein Total Protein Albumin Prealbumin Triglycerides Cholesterol LDL Cholesterol Direct HDL Cholesterol Urine pH Urine WBC (Auto) Urine Creatinine Urine Total Protein Vancomycin Trough Rheumatoid Factor Complement C4 Miscellaneous Test Crossmatch 09/21/16 09/21/16 09/21/16 07:45 07:45 10:01 WBC 13.8 H RBC 2.94 L Hgb 7.5 L Hct 23.5 L MCV MCH 26 L MCHC RDW 21.2 H Plt Count Lymph % (Auto) 6.9 L [place] % (Auto) 9.4 H Lymph # 0.9 L [place] # 1.3 H Baso # Seg Neutrophils % 83.2 H Seg Neuts % (Manual) Lymphocytes % (Manual) Monocytes % (Manual) Eosinophils % (Manual) Basophils % (Manual) Nucleated RBC % Seg Neutrophils # 11.5 H Seg Neutrophils # Man Lymphocytes # (Manual) Monocytes # (Manual) Eosinophils # (Manual) PT INR Fibrinogen dRVVT Confirm Interp Factor V Activity POC ABG pH 7.308 L POC ABG pCO2 31.9 L POC ABG pO2 148 H Sodium 147 H Potassium Chloride 114.2 H Carbon Dioxide 15 L BUN 120 H Creatinine 3.9 H Glucose 156 H POC Glucose Lactic Acid Calcium 8.2 L Phosphorus Magnesium Direct Bilirubin AST ALT Alkaline Phosphatase Lactate Dehydrogenase Troponin T C-Reactive Protein Total Protein Albumin Prealbumin Triglycerides Cholesterol LDL Cholesterol Direct HDL Cholesterol Urine pH Urine WBC (Auto) Urine Creatinine Urine Total Protein Vancomycin Trough Rheumatoid Factor Complement C4 Miscellaneous Test Crossmatch 09/21/16 09/21/16 09/21/16 12:00 12:03 13:00 WBC RBC Hgb Hct MCV MCH MCHC RDW Plt Count Lymph % (Auto) [place] % (Auto) Lymph # [place] # Baso # Seg Neutrophils % Seg Neuts % (Manual) Lymphocytes % (Manual) Monocytes % (Manual) Eosinophils % (Manual) Basophils % (Manual) Nucleated RBC % Seg Neutrophils # Seg Neutrophils # Man Lymphocytes # (Manual) Monocytes # (Manual) Eosinophils # (Manual) PT INR Fibrinogen dRVVT Confirm Interp Factor V Activity POC ABG pH POC ABG pCO2 POC ABG pO2 Sodium Potassium Chloride Carbon Dioxide BUN Creatinine Glucose POC Glucose 163 H Lactic Acid Calcium Phosphorus Magnesium Direct Bilirubin AST ALT Alkaline Phosphatase Lactate Dehydrogenase Troponin T C-Reactive Protein Total Protein Albumin Prealbumin Triglycerides Cholesterol LDL Cholesterol Direct HDL Cholesterol Urine pH Urine WBC (Auto) Urine Creatinine 54.8 H Urine Total Protein Vancomycin Trough 2.3 L Rheumatoid Factor Complement C4 Miscellaneous Test Crossmatch 09/21/16 09/21/16 09/22/16 16:51 23:17 06:27 WBC RBC Hgb Hct MCV MCH MCHC RDW Plt Count Lymph % (Auto) [place] % (Auto) Lymph # [place] # Baso # Seg Neutrophils % Seg Neuts % (Manual) Lymphocytes % (Manual) Monocytes % (Manual) Eosinophils % (Manual) Basophils % (Manual) Nucleated RBC % Seg Neutrophils # Seg Neutrophils # Man Lymphocytes # (Manual) Monocytes # (Manual) Eosinophils # (Manual) PT INR Fibrinogen dRVVT Confirm Interp Factor V Activity POC ABG pH POC ABG pCO2 POC ABG pO2 Sodium Potassium Chloride Carbon Dioxide BUN Creatinine Glucose POC Glucose 206 H 114 H 115 H Lactic Acid Calcium Phosphorus Magnesium Direct Bilirubin AST ALT Alkaline Phosphatase Lactate Dehydrogenase Troponin T C-Reactive Protein Total Protein Albumin Prealbumin Triglycerides Cholesterol LDL Cholesterol Direct HDL Cholesterol Urine pH Urine WBC (Auto) Urine Creatinine Urine Total Protein Vancomycin Trough Rheumatoid Factor Complement C4 Miscellaneous Test Crossmatch 09/22/16 09/22/16 09/22/16 07:50 07:50 12:00 WBC 17.8 H RBC 3.04 L Hgb 8.0 L Hct 24.7 L MCV MCH 26 L MCHC RDW 21.6 H Plt Count Lymph % (Auto) [place] % (Auto) Lymph # [place] # Baso # Seg Neutrophils % Seg Neuts % (Manual) Lymphocytes % (Manual) Monocytes % (Manual) Eosinophils % (Manual) Basophils % (Manual) Nucleated RBC % Seg Neutrophils # Seg Neutrophils # Man Lymphocytes # (Manual) Monocytes # (Manual) Eosinophils # (Manual) PT INR Fibrinogen dRVVT Confirm Interp Factor V Activity POC ABG pH POC ABG pCO2 POC ABG pO2 Sodium 150 H Potassium Chloride 118.2 H Carbon Dioxide 14 L BUN 111 H Creatinine 3.7 H Glucose 157 H POC Glucose 183 H Lactic Acid Calcium Phosphorus Magnesium Direct Bilirubin AST ALT Alkaline Phosphatase Lactate Dehydrogenase Troponin T C-Reactive Protein Total Protein Albumin Prealbumin Triglycerides Cholesterol LDL Cholesterol Direct HDL Cholesterol Urine pH Urine WBC (Auto) Urine Creatinine Urine Total Protein Vancomycin Trough Rheumatoid Factor Complement C4 Miscellaneous Test Crossmatch 09/22/16 09/22/16 09/23/16 17:29 23:10 05:00 WBC 19.2 H RBC 3.13 L Hgb 8.0 L Hct 25.2 L MCV MCH 26 L MCHC RDW 22.1 H Plt Count Lymph % (Auto) [place] % (Auto) Lymph # [place] # Baso # Seg Neutrophils % Seg Neuts % (Manual) 92.0 H Lymphocytes % (Manual) 3.0 L Monocytes % (Manual) Eosinophils % (Manual) Basophils % (Manual) Nucleated RBC % Seg Neutrophils # Seg Neutrophils # Man 17.7 H Lymphocytes # (Manual) 0.6 L Monocytes # (Manual) Eosinophils # (Manual) PT INR Fibrinogen dRVVT Confirm Interp Factor V Activity POC ABG pH POC ABG pCO2 POC ABG pO2 Sodium Potassium Chloride Carbon Dioxide BUN Creatinine Glucose POC Glucose 197 H 169 H Lactic Acid Calcium Phosphorus Magnesium Direct Bilirubin AST ALT Alkaline Phosphatase Lactate Dehydrogenase Troponin T C-Reactive Protein Total Protein Albumin Prealbumin Triglycerides Cholesterol LDL Cholesterol Direct HDL Cholesterol Urine pH Urine WBC (Auto) Urine Creatinine Urine Total Protein Vancomycin Trough Rheumatoid Factor Complement C4 Miscellaneous Test Crossmatch 09/23/16 09/23/16 09/23/16 05:00 05:00 05:10 WBC RBC Hgb Hct MCV MCH MCHC RDW Plt Count Lymph % (Auto) [place] % (Auto) Lymph # [place] # Baso # Seg Neutrophils % Seg Neuts % (Manual) Lymphocytes % (Manual) Monocytes % (Manual) Eosinophils % (Manual) Basophils % (Manual) Nucleated RBC % Seg Neutrophils # Seg Neutrophils # Man Lymphocytes # (Manual) Monocytes # (Manual) Eosinophils # (Manual) PT INR Fibrinogen dRVVT Confirm Interp Factor V Activity POC ABG pH POC ABG pCO2 POC ABG pO2 Sodium 147 H Potassium 3.2 L Chloride 115.7 H Carbon Dioxide 13 L BUN 111 H Creatinine 3.8 H Glucose 194 H POC Glucose 188 H Lactic Acid Calcium 7.3 L D Phosphorus Magnesium Direct Bilirubin AST ALT Alkaline Phosphatase Lactate Dehydrogenase Troponin T C-Reactive Protein 3.20 H Total Protein Albumin Prealbumin Triglycerides Cholesterol LDL Cholesterol Direct HDL Cholesterol Urine pH Urine WBC (Auto) Urine Creatinine Urine Total Protein Vancomycin Trough Rheumatoid Factor Complement C4 Miscellaneous Test Crossmatch 09/23/16 09/23/16 09/23/16 11:37 12:29 18:01 WBC RBC Hgb Hct MCV MCH MCHC RDW Plt Count Lymph % (Auto) [place] % (Auto) Lymph # [place] # Baso # Seg Neutrophils % Seg Neuts % (Manual) Lymphocytes % (Manual) Monocytes % (Manual) Eosinophils % (Manual) Basophils % (Manual) Nucleated RBC % Seg Neutrophils # Seg Neutrophils # Man Lymphocytes # (Manual) Monocytes # (Manual) Eosinophils # (Manual) PT INR Fibrinogen dRVVT Confirm Interp Factor V Activity POC ABG pH POC ABG pCO2 18.9 L POC ABG pO2 143 H Sodium Potassium Chloride Carbon Dioxide BUN Creatinine Glucose POC Glucose 153 H 108 H Lactic Acid Calcium Phosphorus Magnesium Direct Bilirubin AST ALT Alkaline Phosphatase Lactate Dehydrogenase Troponin T C-Reactive Protein Total Protein Albumin Prealbumin Triglycerides Cholesterol LDL Cholesterol Direct HDL Cholesterol Urine pH Urine WBC (Auto) Urine Creatinine Urine Total Protein Vancomycin Trough Rheumatoid Factor Complement C4 Miscellaneous Test Crossmatch 09/23/16 09/23/16 09/24/16 21:19 23:43 05:16 WBC RBC Hgb Hct MCV MCH MCHC RDW Plt Count Lymph % (Auto) [place] % (Auto) Lymph # [place] # Baso # Seg Neutrophils % Seg Neuts % (Manual) Lymphocytes % (Manual) Monocytes % (Manual) Eosinophils % (Manual) Basophils % (Manual) Nucleated RBC % Seg Neutrophils # Seg Neutrophils # Man Lymphocytes # (Manual) Monocytes # (Manual) Eosinophils # (Manual) PT INR Fibrinogen dRVVT Confirm Interp Factor V Activity POC ABG pH POC ABG pCO2 17.3 L POC ABG pO2 112 H Sodium Potassium Chloride Carbon Dioxide BUN Creatinine Glucose POC Glucose 143 H 164 H Lactic Acid Calcium Phosphorus Magnesium Direct Bilirubin AST ALT Alkaline Phosphatase Lactate Dehydrogenase Troponin T C-Reactive Protein Total Protein Albumin Prealbumin Triglycerides Cholesterol LDL Cholesterol Direct HDL Cholesterol Urine pH Urine WBC (Auto) Urine Creatinine Urine Total Protein Vancomycin Trough Rheumatoid Factor Complement C4 Miscellaneous Test Crossmatch 09/24/16 09/24/16 09/24/16 05:21 11:58 17:06 WBC RBC Hgb Hct MCV MCH MCHC RDW Plt Count Lymph % (Auto) [place] % (Auto) Lymph # [place] # Baso # Seg Neutrophils % Seg Neuts % (Manual) Lymphocytes % (Manual) Monocytes % (Manual) Eosinophils % (Manual) Basophils % (Manual) Nucleated RBC % Seg Neutrophils # Seg Neutrophils # Man Lymphocytes # (Manual) Monocytes # (Manual) Eosinophils # (Manual) PT INR Fibrinogen dRVVT Confirm Interp Factor V Activity POC ABG pH POC ABG pCO2 POC ABG pO2 Sodium Potassium Chloride Carbon Dioxide 10 L BUN 103 H Creatinine 4.3 H Glucose 163 H POC Glucose 173 H 167 H Lactic Acid Calcium 6.5 L Phosphorus Magnesium Direct Bilirubin AST ALT Alkaline Phosphatase Lactate Dehydrogenase Troponin T C-Reactive Protein Total Protein Albumin Prealbumin Triglycerides Cholesterol LDL Cholesterol Direct HDL Cholesterol Urine pH Urine WBC (Auto) Urine Creatinine Urine Total Protein Vancomycin Trough Rheumatoid Factor Complement C4 Miscellaneous Test Crossmatch 09/24/16 09/24/16 09/24/16 20:15 21:02 23:48 WBC RBC Hgb Hct MCV MCH MCHC RDW Plt Count Lymph % (Auto) [place] % (Auto) Lymph # [place] # Baso # Seg Neutrophils % Seg Neuts % (Manual) Lymphocytes % (Manual) Monocytes % (Manual) Eosinophils % (Manual) Basophils % (Manual) Nucleated RBC % Seg Neutrophils # Seg Neutrophils # Man Lymphocytes # (Manual) Monocytes # (Manual) Eosinophils # (Manual) PT INR Fibrinogen dRVVT Confirm Interp Factor V Activity POC ABG pH 7.288 L POC ABG pCO2 30.2 L 21.5 L POC ABG pO2 32 L 39 L Sodium Potassium Chloride Carbon Dioxide BUN Creatinine Glucose POC Glucose 109 H Lactic Acid Calcium Phosphorus Magnesium Direct Bilirubin AST ALT Alkaline Phosphatase Lactate Dehydrogenase Troponin T C-Reactive Protein Total Protein Albumin Prealbumin Triglycerides Cholesterol LDL Cholesterol Direct HDL Cholesterol Urine pH Urine WBC (Auto) Urine Creatinine Urine Total Protein Vancomycin Trough Rheumatoid Factor Complement C4 Miscellaneous Test Crossmatch 09/25/16 09/25/16 09/25/16 04:20 04:20 04:20 WBC RBC 2.58 L Hgb 7.0 L Hct 21.0 L MCV MCH 27 L MCHC RDW 23.8 H Plt Count Lymph % (Auto) [place] % (Auto) Lymph # [place] # Baso # Seg Neutrophils % Seg Neuts % (Manual) Lymphocytes % (Manual) 12.0 L Monocytes % (Manual) Eosinophils % (Manual) 7.0 H Basophils % (Manual) 2.0 H Nucleated RBC % Seg Neutrophils # Seg Neutrophils # Man Lymphocytes # (Manual) 0.9 L Monocytes # (Manual) Eosinophils # (Manual) 0.5 H PT INR Fibrinogen dRVVT Confirm Interp Factor V Activity POC ABG pH POC ABG pCO2 POC ABG pO2 Sodium Potassium Chloride Carbon Dioxide 15 L BUN 72 H Creatinine 3.8 H Glucose POC Glucose Lactic Acid Calcium 6.0 L Phosphorus 4.60 H Magnesium 1.60 L Direct Bilirubin AST ALT Alkaline Phosphatase Lactate Dehydrogenase Troponin T C-Reactive Protein Total Protein Albumin Prealbumin Triglycerides Cholesterol LDL Cholesterol Direct HDL Cholesterol Urine pH Urine WBC (Auto) Urine Creatinine Urine Total Protein Vancomycin Trough Rheumatoid Factor Complement C4 Miscellaneous Test Crossmatch 09/25/16 09/25/16 09/25/16 04:57 08:02 10:30 WBC RBC Hgb Hct MCV MCH MCHC RDW Plt Count Lymph % (Auto) [place] % (Auto) Lymph # [place] # Baso # Seg Neutrophils % Seg Neuts % (Manual) Lymphocytes % (Manual) Monocytes % (Manual) Eosinophils % (Manual) Basophils % (Manual) Nucleated RBC % Seg Neutrophils # Seg Neutrophils # Man Lymphocytes # (Manual) Monocytes # (Manual) Eosinophils # (Manual) PT INR Fibrinogen dRVVT Confirm Interp Factor V Activity POC ABG pH POC ABG pCO2 24.7 L POC ABG pO2 152 H Sodium Potassium Chloride Carbon Dioxide BUN Creatinine Glucose POC Glucose 113 H Lactic Acid Calcium Phosphorus Magnesium Direct Bilirubin AST ALT Alkaline Phosphatase Lactate Dehydrogenase Troponin T C-Reactive Protein Total Protein Albumin Prealbumin Triglycerides Cholesterol LDL Cholesterol Direct HDL Cholesterol Urine pH Urine WBC (Auto) Urine Creatinine Urine Total Protein Vancomycin Trough Rheumatoid Factor Complement C4 Miscellaneous Test Crossmatch See Detail 09/25/16 09/25/16 09/25/16 12:05 17:44 23:47 WBC RBC Hgb Hct MCV MCH MCHC RDW Plt Count Lymph % (Auto) [place] % (Auto) Lymph # [place] # Baso # Seg Neutrophils % Seg Neuts % (Manual) Lymphocytes % (Manual) Monocytes % (Manual) Eosinophils % (Manual) Basophils % (Manual) Nucleated RBC % Seg Neutrophils # Seg Neutrophils # Man Lymphocytes # (Manual) Monocytes # (Manual) Eosinophils # (Manual) PT INR Fibrinogen dRVVT Confirm Interp Factor V Activity POC ABG pH POC ABG pCO2 POC ABG pO2 Sodium Potassium Chloride Carbon Dioxide BUN Creatinine Glucose POC Glucose 117 H 119 H 150 H Lactic Acid Calcium Phosphorus Magnesium Direct Bilirubin AST ALT Alkaline Phosphatase Lactate Dehydrogenase Troponin T C-Reactive Protein Total Protein Albumin Prealbumin Triglycerides Cholesterol LDL Cholesterol Direct HDL Cholesterol Urine pH Urine WBC (Auto) Urine Creatinine Urine Total Protein Vancomycin Trough Rheumatoid Factor Complement C4 Miscellaneous Test Crossmatch 09/26/16 09/26/16 09/26/16 04:25 04:25 04:25 WBC RBC 2.65 L Hgb 7.4 L Hct 21.6 L MCV MCH MCHC RDW 22.5 H Plt Count Lymph % (Auto) [place] % (Auto) Lymph # [place] # Baso # Seg Neutrophils % Seg Neuts % (Manual) Lymphocytes % (Manual) 6.0 L Monocytes % (Manual) Eosinophils % (Manual) 11.0 H Basophils % (Manual) Nucleated RBC % Seg Neutrophils # Seg Neutrophils # Man Lymphocytes # (Manual) 0.4 L Monocytes # (Manual) Eosinophils # (Manual) 0.6 H PT INR Fibrinogen dRVVT Confirm Interp Factor V Activity POC ABG pH POC ABG pCO2 POC ABG pO2 Sodium Potassium Chloride 97.0 L Carbon Dioxide 19 L BUN 43 H Creatinine 2.6 H Glucose 130 H POC Glucose Lactic Acid 4.40 H* Calcium 6.7 L Phosphorus Magnesium Direct Bilirubin AST ALT Alkaline Phosphatase Lactate Dehydrogenase Troponin T C-Reactive Protein Total Protein Albumin Prealbumin Triglycerides Cholesterol LDL Cholesterol Direct HDL Cholesterol Urine pH Urine WBC (Auto) Urine Creatinine Urine Total Protein Vancomycin Trough Rheumatoid Factor Complement C4 Miscellaneous Test Crossmatch 09/26/16 09/26/16 09/26/16 05:20 11:44 12:12 WBC RBC Hgb Hct MCV MCH MCHC RDW Plt Count Lymph % (Auto) [place] % (Auto) Lymph # [place] # Baso # Seg Neutrophils % Seg Neuts % (Manual) Lymphocytes % (Manual) Monocytes % (Manual) Eosinophils % (Manual) Basophils % (Manual) Nucleated RBC % Seg Neutrophils # Seg Neutrophils # Man Lymphocytes # (Manual) Monocytes # (Manual) Eosinophils # (Manual) PT INR Fibrinogen dRVVT Confirm Interp Factor V Activity POC ABG pH POC ABG pCO2 27.0 L POC ABG pO2 69 L Sodium Potassium Chloride Carbon Dioxide BUN Creatinine Glucose POC Glucose 121 H 128 H Lactic Acid Calcium Phosphorus Magnesium Direct Bilirubin AST ALT Alkaline Phosphatase Lactate Dehydrogenase Troponin T C-Reactive Protein Total Protein Albumin Prealbumin Triglycerides Cholesterol LDL Cholesterol Direct HDL Cholesterol Urine pH Urine WBC (Auto) Urine Creatinine Urine Total Protein Vancomycin Trough Rheumatoid Factor Complement C4 Miscellaneous Test Crossmatch 09/26/16 09/26/16 09/27/16 18:31 23:40 08:20 WBC RBC Hgb Hct MCV MCH MCHC RDW Plt Count Lymph % (Auto) [place] % (Auto) Lymph # [place] # Baso # Seg Neutrophils % Seg Neuts % (Manual) Lymphocytes % (Manual) Monocytes % (Manual) Eosinophils % (Manual) Basophils % (Manual) Nucleated RBC % Seg Neutrophils # Seg Neutrophils # Man Lymphocytes # (Manual) Monocytes # (Manual) Eosinophils # (Manual) PT INR Fibrinogen dRVVT Confirm Interp Factor V Activity POC ABG pH POC ABG pCO2 POC ABG pO2 Sodium Potassium Chloride Carbon Dioxide BUN Creatinine Glucose POC Glucose 120 H 133 H Lactic Acid 4.10 H* Calcium Phosphorus Magnesium Direct Bilirubin AST ALT Alkaline Phosphatase Lactate Dehydrogenase Troponin T C-Reactive Protein Total Protein Albumin Prealbumin Triglycerides Cholesterol LDL Cholesterol Direct HDL Cholesterol Urine pH Urine WBC (Auto) Urine Creatinine Urine Total Protein Vancomycin Trough Rheumatoid Factor Complement C4 Miscellaneous Test Crossmatch 09/27/16 09/27/16 09/27/16 11:23 15:00 18:15 WBC RBC Hgb Hct MCV MCH MCHC RDW Plt Count Lymph % (Auto) [place] % (Auto) Lymph # [place] # Baso # Seg Neutrophils % Seg Neuts % (Manual) Lymphocytes % (Manual) Monocytes % (Manual) Eosinophils % (Manual) Basophils % (Manual) Nucleated RBC % Seg Neutrophils # Seg Neutrophils # Man Lymphocytes # (Manual) Monocytes # (Manual) Eosinophils # (Manual) PT INR Fibrinogen dRVVT Confirm Interp Factor V Activity POC ABG pH 7.459 H POC ABG pCO2 27.1 L POC ABG pO2 140 H Sodium Potassium Chloride Carbon Dioxide BUN Creatinine Glucose POC Glucose 114 H 127 H Lactic Acid Calcium Phosphorus Magnesium Direct Bilirubin AST ALT Alkaline Phosphatase Lactate Dehydrogenase Troponin T C-Reactive Protein Total Protein Albumin Prealbumin Triglycerides Cholesterol LDL Cholesterol Direct HDL Cholesterol Urine pH Urine WBC (Auto) Urine Creatinine Urine Total Protein Vancomycin Trough Rheumatoid Factor Complement C4 Miscellaneous Test Crossmatch 09/27/16 09/27/16 09/28/16 Unknown Unknown 03:45 WBC RBC 2.49 L Hgb 6.8 L Hct 20.7 L MCV MCH 27 L MCHC RDW 22.1 H Plt Count Lymph % (Auto) [place] % (Auto) Lymph # [place] # Baso # Seg Neutrophils % Seg Neuts % (Manual) 32.0 L Lymphocytes % (Manual) 12.0 L Monocytes % (Manual) 11.0 H Eosinophils % (Manual) 10.0 H Basophils % (Manual) Nucleated RBC % Seg Neutrophils # Seg Neutrophils # Man Lymphocytes # (Manual) 1.0 L Monocytes # (Manual) 0.9 H Eosinophils # (Manual) 0.8 H PT INR Fibrinogen dRVVT Confirm Interp Factor V Activity POC ABG pH POC ABG pCO2 POC ABG pO2 Sodium 135 L 135 L Potassium 3.5 L Chloride 93.6 L 94.4 L Carbon Dioxide 17 L 21 L BUN 45 H 28 H Creatinine 3.3 H 2.5 H Glucose 106 H POC Glucose Lactic Acid Calcium 7.3 L 7.1 L Phosphorus Magnesium Direct Bilirubin AST ALT Alkaline Phosphatase Lactate Dehydrogenase Troponin T C-Reactive Protein Total Protein Albumin Prealbumin Triglycerides Cholesterol LDL Cholesterol Direct HDL Cholesterol Urine pH Urine WBC (Auto) Urine Creatinine Urine Total Protein Vancomycin Trough Rheumatoid Factor Complement C4 Miscellaneous Test Crossmatch 09/28/16 09/28/16 09/28/16 03:45 07:25 11:58 WBC 13.3 H RBC 3.01 L Hgb 8.4 L Hct 25.0 L MCV MCH MCHC RDW 20.5 H Plt Count 128 L Lymph % (Auto) [place] % (Auto) Lymph # [place] # Baso # Seg Neutrophils % Seg Neuts % (Manual) Lymphocytes % (Manual) 7.0 L Monocytes % (Manual) Eosinophils % (Manual) 6.0 H Basophils % (Manual) Nucleated RBC % Seg Neutrophils # Seg Neutrophils # Man Lymphocytes # (Manual) 0.9 L Monocytes # (Manual) Eosinophils # (Manual) 0.8 H PT INR Fibrinogen dRVVT Confirm Interp Factor V Activity POC ABG pH POC ABG pCO2 POC ABG pO2 Sodium Potassium Chloride Carbon Dioxide BUN Creatinine Glucose POC Glucose 121 H Lactic Acid 4.50 H* Calcium Phosphorus Magnesium Direct Bilirubin AST ALT Alkaline Phosphatase Lactate Dehydrogenase Troponin T C-Reactive Protein Total Protein Albumin Prealbumin Triglycerides Cholesterol LDL Cholesterol Direct HDL Cholesterol Urine pH Urine WBC (Auto) Urine Creatinine Urine Total Protein Vancomycin Trough Rheumatoid Factor Complement C4 Miscellaneous Test Crossmatch 09/29/16 09/29/16 09/29/16 06:45 06:45 06:45 WBC 14.9 H RBC 2.74 L Hgb 7.6 L Hct 23.2 L MCV MCH MCHC RDW 20.5 H Plt Count 81 L Lymph % (Auto) [place] % (Auto) Lymph # [place] # Baso # Seg Neutrophils % Seg Neuts % (Manual) 81.0 H Lymphocytes % (Manual) 4.0 L Monocytes % (Manual) Eosinophils % (Manual) Basophils % (Manual) Nucleated RBC % Seg Neutrophils # Seg Neutrophils # Man 12.1 H Lymphocytes # (Manual) 0.6 L Monocytes # (Manual) Eosinophils # (Manual) PT INR Fibrinogen dRVVT Confirm Interp Factor V Activity POC ABG pH POC ABG pCO2 POC ABG pO2 Sodium 133 L Potassium 3.4 L Chloride 92.5 L Carbon Dioxide 21 L BUN 33 H Creatinine 3.0 H Glucose POC Glucose Lactic Acid Calcium 6.6 L Phosphorus Magnesium 1.40 L Direct Bilirubin 0.9 H AST ALT Alkaline Phosphatase Lactate Dehydrogenase Troponin T C-Reactive Protein Total Protein 4.3 L Albumin 1.3 L Prealbumin Triglycerides Cholesterol LDL Cholesterol Direct HDL Cholesterol Urine pH Urine WBC (Auto) Urine Creatinine Urine Total Protein Vancomycin Trough Rheumatoid Factor Complement C4 Miscellaneous Test Crossmatch 09/29/16 09/29/16 09/30/16 17:52 20:12 00:07 WBC RBC Hgb Hct MCV MCH MCHC RDW Plt Count Lymph % (Auto) [place] % (Auto) Lymph # [place] # Baso # Seg Neutrophils % Seg Neuts % (Manual) Lymphocytes % (Manual) Monocytes % (Manual) Eosinophils % (Manual) Basophils % (Manual) Nucleated RBC % Seg Neutrophils # Seg Neutrophils # Man Lymphocytes # (Manual) Monocytes # (Manual) Eosinophils # (Manual) PT INR Fibrinogen dRVVT Confirm Interp Factor V Activity POC ABG pH POC ABG pCO2 POC ABG pO2 Sodium Potassium Chloride Carbon Dioxide BUN Creatinine Glucose POC Glucose 50 L 51 L Lactic Acid Calcium Phosphorus Magnesium Direct Bilirubin AST ALT Alkaline Phosphatase Lactate Dehydrogenase Troponin T 0.204 H* C-Reactive Protein Total Protein Albumin Prealbumin Triglycerides Cholesterol 31 L LDL Cholesterol Direct 4 L HDL Cholesterol 3 L Urine pH Urine WBC (Auto) Urine Creatinine Urine Total Protein Vancomycin Trough Rheumatoid Factor Complement C4 Miscellaneous Test Crossmatch 09/30/16 09/30/16 09/30/16 01:30 05:15 06:10 WBC RBC Hgb Hct MCV MCH MCHC RDW Plt Count Lymph % (Auto) [place] % (Auto) Lymph # [place] # Baso # Seg Neutrophils % Seg Neuts % (Manual) Lymphocytes % (Manual) Monocytes % (Manual) Eosinophils % (Manual) Basophils % (Manual) Nucleated RBC % Seg Neutrophils # Seg Neutrophils # Man Lymphocytes # (Manual) Monocytes # (Manual) Eosinophils # (Manual) PT INR Fibrinogen dRVVT Confirm Interp Factor V Activity POC ABG pH POC ABG pCO2 POC ABG pO2 Sodium 133 L Potassium 3.2 L Chloride 93.2 L Carbon Dioxide 19 L BUN 36 H Creatinine 3.2 H Glucose 104 H POC Glucose 167 H 146 H Lactic Acid Calcium 6.4 L Phosphorus Magnesium 1.60 L Direct Bilirubin AST ALT Alkaline Phosphatase Lactate Dehydrogenase Troponin T C-Reactive Protein Total Protein Albumin Prealbumin Triglycerides Cholesterol LDL Cholesterol Direct HDL Cholesterol Urine pH Urine WBC (Auto) Urine Creatinine Urine Total Protein Vancomycin Trough Rheumatoid Factor Complement C4 Miscellaneous Test Crossmatch 09/30/16 09/30/16 09/30/16 11:26 13:39 18:38 WBC RBC Hgb Hct MCV MCH MCHC RDW Plt Count Lymph % (Auto) [place] % (Auto) Lymph # [place] # Baso # Seg Neutrophils % Seg Neuts % (Manual) Lymphocytes % (Manual) Monocytes % (Manual) Eosinophils % (Manual) Basophils % (Manual) Nucleated RBC % Seg Neutrophils # Seg Neutrophils # Man Lymphocytes # (Manual) Monocytes # (Manual) Eosinophils # (Manual) PT INR Fibrinogen dRVVT Confirm Interp Factor V Activity POC ABG pH 7.479 H POC ABG pCO2 29.8 L POC ABG pO2 117 H Sodium Potassium Chloride Carbon Dioxide BUN Creatinine Glucose POC Glucose 140 H 122 H Lactic Acid Calcium Phosphorus Magnesium Direct Bilirubin AST ALT Alkaline Phosphatase Lactate Dehydrogenase Troponin T C-Reactive Protein Total Protein Albumin Prealbumin Triglycerides Cholesterol LDL Cholesterol Direct HDL Cholesterol Urine pH Urine WBC (Auto) Urine Creatinine Urine Total Protein Vancomycin Trough Rheumatoid Factor Complement C4 Miscellaneous Test Crossmatch 10/01/16 10/01/16 10/01/16 06:00 06:00 12:37 WBC 12.6 H RBC 2.75 L Hgb 7.3 L Hct 23.3 L MCV MCH 27 L MCHC RDW 20.6 H Plt Count 72 L Lymph % (Auto) [place] % (Auto) Lymph # [place] # Baso # Seg Neutrophils % Seg Neuts % (Manual) 31.0 L Lymphocytes % (Manual) 8.0 L Monocytes % (Manual) Eosinophils % (Manual) Basophils % (Manual) Nucleated RBC % 3.0 H Seg Neutrophils # Seg Neutrophils # Man Lymphocytes # (Manual) 1.0 L Monocytes # (Manual) Eosinophils # (Manual) PT INR Fibrinogen dRVVT Confirm Interp Factor V Activity POC ABG pH POC ABG pCO2 POC ABG pO2 Sodium 127 L Potassium Chloride 86.8 L Carbon Dioxide 20 L BUN 42 H Creatinine 3.5 H Glucose POC Glucose 65 L Lactic Acid Calcium 7.0 L Phosphorus Magnesium Direct Bilirubin AST ALT Alkaline Phosphatase Lactate Dehydrogenase Troponin T C-Reactive Protein Total Protein Albumin Prealbumin Triglycerides Cholesterol LDL Cholesterol Direct HDL Cholesterol Urine pH Urine WBC (Auto) Urine Creatinine Urine Total Protein Vancomycin Trough Rheumatoid Factor Complement C4 Miscellaneous Test Crossmatch 10/01/16 10/01/16 10/02/16 17:39 23:32 00:59 WBC RBC Hgb Hct MCV MCH MCHC RDW Plt Count Lymph % (Auto) [place] % (Auto) Lymph # [place] # Baso # Seg Neutrophils % Seg Neuts % (Manual) Lymphocytes % (Manual) Monocytes % (Manual) Eosinophils % (Manual) Basophils % (Manual) Nucleated RBC % Seg Neutrophils # Seg Neutrophils # Man Lymphocytes # (Manual) Monocytes # (Manual) Eosinophils # (Manual) PT INR Fibrinogen dRVVT Confirm Interp Factor V Activity POC ABG pH POC ABG pCO2 POC ABG pO2 Sodium Potassium Chloride Carbon Dioxide BUN Creatinine Glucose POC Glucose 107 H 52 L 145 H Lactic Acid Calcium Phosphorus Magnesium Direct Bilirubin AST ALT Alkaline Phosphatase Lactate Dehydrogenase Troponin T C-Reactive Protein Total Protein Albumin Prealbumin Triglycerides Cholesterol LDL Cholesterol Direct HDL Cholesterol Urine pH Urine WBC (Auto) Urine Creatinine Urine Total Protein Vancomycin Trough Rheumatoid Factor Complement C4 Miscellaneous Test Crossmatch 10/02/16 10/02/16 10/02/16 10:30 10:50 10:50 WBC 14.7 H RBC 2.76 L Hgb 7.4 L Hct 23.6 L MCV MCH 27 L MCHC RDW 20.2 H Plt Count 79 L Lymph % (Auto) [place] % (Auto) Lymph # [place] # Baso # Seg Neutrophils % Seg Neuts % (Manual) 86.0 H Lymphocytes % (Manual) 6.0 L Monocytes % (Manual) Eosinophils % (Manual) Basophils % (Manual) Nucleated RBC % Seg Neutrophils # Seg Neutrophils # Man 12.6 H Lymphocytes # (Manual) 0.9 L Monocytes # (Manual) Eosinophils # (Manual) PT INR Fibrinogen dRVVT Confirm Interp Factor V Activity POC ABG pH 7.486 H POC ABG pCO2 30.1 L POC ABG pO2 108 H Sodium 131 L Potassium 3.4 L Chloride 89.9 L Carbon Dioxide BUN 26 H Creatinine 2.6 H Glucose POC Glucose Lactic Acid Calcium 7.0 L Phosphorus Magnesium Direct Bilirubin AST ALT Alkaline Phosphatase Lactate Dehydrogenase Troponin T C-Reactive Protein Total Protein Albumin Prealbumin Triglycerides Cholesterol LDL Cholesterol Direct HDL Cholesterol Urine pH Urine WBC (Auto) Urine Creatinine Urine Total Protein Vancomycin Trough Rheumatoid Factor Complement C4 Miscellaneous Test Crossmatch 10/02/16 10/03/16 10/03/16 23:45 00:45 05:10 WBC 12.9 H RBC 2.77 L Hgb 7.6 L Hct 23.7 L MCV MCH 27 L MCHC RDW 19.7 H Plt Count 89 L Lymph % (Auto) [place] % (Auto) Lymph # [place] # Baso # Seg Neutrophils % Seg Neuts % (Manual) Lymphocytes % (Manual) 8.0 L Monocytes % (Manual) Eosinophils % (Manual) Basophils % (Manual) Nucleated RBC % Seg Neutrophils # 11.9 H Seg Neutrophils # Man Lymphocytes # (Manual) 1.0 L Monocytes # (Manual) Eosinophils # (Manual) PT INR Fibrinogen dRVVT Confirm Interp Factor V Activity POC ABG pH POC ABG pCO2 POC ABG pO2 Sodium Potassium Chloride Carbon Dioxide BUN Creatinine Glucose POC Glucose 55 L 199 H Lactic Acid Calcium Phosphorus Magnesium Direct Bilirubin AST ALT Alkaline Phosphatase Lactate Dehydrogenase Troponin T C-Reactive Protein Total Protein Albumin Prealbumin Triglycerides Cholesterol LDL Cholesterol Direct HDL Cholesterol Urine pH Urine WBC (Auto) Urine Creatinine Urine Total Protein Vancomycin Trough Rheumatoid Factor Complement C4 Miscellaneous Test Crossmatch 10/03/16 10/03/16 10/03/16 05:10 12:14 13:18 WBC RBC Hgb Hct MCV MCH MCHC RDW Plt Count Lymph % (Auto) [place] % (Auto) Lymph # [place] # Baso # Seg Neutrophils % Seg Neuts % (Manual) Lymphocytes % (Manual) Monocytes % (Manual) Eosinophils % (Manual) Basophils % (Manual) Nucleated RBC % Seg Neutrophils # Seg Neutrophils # Man Lymphocytes # (Manual) Monocytes # (Manual) Eosinophils # (Manual) PT INR Fibrinogen dRVVT Confirm Interp Factor V Activity POC ABG pH POC ABG pCO2 POC ABG pO2 Sodium 129 L Potassium 3.3 L Chloride 88.8 L Carbon Dioxide 20 L BUN 29 H Creatinine 2.8 H Glucose POC Glucose 68 L 127 H Lactic Acid Calcium 7.2 L Phosphorus Magnesium Direct Bilirubin AST ALT Alkaline Phosphatase Lactate Dehydrogenase Troponin T C-Reactive Protein Total Protein Albumin Prealbumin Triglycerides Cholesterol LDL Cholesterol Direct HDL Cholesterol Urine pH Urine WBC (Auto) Urine Creatinine Urine Total Protein Vancomycin Trough Rheumatoid Factor Complement C4 Miscellaneous Test Crossmatch 10/03/16 10/03/16 10/03/16 14:42 18:21 19:09 WBC RBC Hgb Hct MCV MCH MCHC RDW Plt Count Lymph % (Auto) [place] % (Auto) Lymph # [place] # Baso # Seg Neutrophils % Seg Neuts % (Manual) Lymphocytes % (Manual) Monocytes % (Manual) Eosinophils % (Manual) Basophils % (Manual) Nucleated RBC % Seg Neutrophils # Seg Neutrophils # Man Lymphocytes # (Manual) Monocytes # (Manual) Eosinophils # (Manual) PT INR Fibrinogen dRVVT Confirm Interp Factor V Activity POC ABG pH 7.499 H POC ABG pCO2 28.4 L POC ABG pO2 44 L Sodium Potassium Chloride Carbon Dioxide BUN Creatinine Glucose POC Glucose 64 L 205 H Lactic Acid Calcium Phosphorus Magnesium Direct Bilirubin AST ALT Alkaline Phosphatase Lactate Dehydrogenase Troponin T C-Reactive Protein Total Protein Albumin Prealbumin Triglycerides Cholesterol LDL Cholesterol Direct HDL Cholesterol Urine pH Urine WBC (Auto) Urine Creatinine Urine Total Protein Vancomycin Trough Rheumatoid Factor Complement C4 Miscellaneous Test Crossmatch 10/03/16 10/04/16 10/04/16 23:33 04:18 06:30 WBC RBC 2.54 L Hgb 7.1 L Hct 21.7 L MCV MCH MCHC RDW 19.5 H Plt Count 76 L Lymph % (Auto) [place] % (Auto) Lymph # [place] # Baso # Seg Neutrophils % Seg Neuts % (Manual) 88.0 H Lymphocytes % (Manual) 6.0 L Monocytes % (Manual) Eosinophils % (Manual) Basophils % (Manual) Nucleated RBC % Seg Neutrophils # Seg Neutrophils # Man 8.8 H Lymphocytes # (Manual) 0.6 L Monocytes # (Manual) Eosinophils # (Manual) PT INR Fibrinogen dRVVT Confirm Interp Factor V Activity POC ABG pH 7.461 H POC ABG pCO2 33.6 L POC ABG pO2 211 H Sodium Potassium Chloride Carbon Dioxide BUN Creatinine Glucose POC Glucose 136 H Lactic Acid Calcium Phosphorus Magnesium Direct Bilirubin AST ALT Alkaline Phosphatase Lactate Dehydrogenase Troponin T C-Reactive Protein Total Protein Albumin Prealbumin Triglycerides Cholesterol LDL Cholesterol Direct HDL Cholesterol Urine pH Urine WBC (Auto) Urine Creatinine Urine Total Protein Vancomycin Trough Rheumatoid Factor Complement C4 Miscellaneous Test Crossmatch 10/04/16 10/04/16 10/04/16 06:30 11:45 17:54 WBC RBC Hgb Hct MCV MCH MCHC RDW Plt Count Lymph % (Auto) [place] % (Auto) Lymph # [place] # Baso # Seg Neutrophils % Seg Neuts % (Manual) Lymphocytes % (Manual) Monocytes % (Manual) Eosinophils % (Manual) Basophils % (Manual) Nucleated RBC % Seg Neutrophils # Seg Neutrophils # Man Lymphocytes # (Manual) Monocytes # (Manual) Eosinophils # (Manual) PT INR Fibrinogen dRVVT Confirm Interp Factor V Activity POC ABG pH POC ABG pCO2 POC ABG pO2 Sodium 128 L Potassium Chloride 87.4 L Carbon Dioxide 20 L BUN 34 H Creatinine 2.9 H Glucose 127 H POC Glucose 158 H 160 H Lactic Acid Calcium 7.4 L Phosphorus Magnesium Direct Bilirubin AST ALT Alkaline Phosphatase Lactate Dehydrogenase Troponin T C-Reactive Protein Total Protein Albumin Prealbumin Triglycerides Cholesterol LDL Cholesterol Direct HDL Cholesterol Urine pH Urine WBC (Auto) Urine Creatinine Urine Total Protein Vancomycin Trough Rheumatoid Factor Complement C4 Miscellaneous Test Crossmatch 10/04/16 10/05/16 10/05/16 23:25 04:30 05:00 WBC RBC 2.64 L Hgb 7.5 L Hct 22.6 L MCV MCH MCHC RDW 19.3 H Plt Count 80 L Lymph % (Auto) [place] % (Auto) Lymph # [place] # Baso # Seg Neutrophils % Seg Neuts % (Manual) Lymphocytes % (Manual) 12.0 L Monocytes % (Manual) Eosinophils % (Manual) Basophils % (Manual) Nucleated RBC % Seg Neutrophils # Seg Neutrophils # Man Lymphocytes # (Manual) Monocytes # (Manual) Eosinophils # (Manual) PT INR Fibrinogen dRVVT Confirm Interp Factor V Activity POC ABG pH 7.475 H POC ABG pCO2 33.3 L POC ABG pO2 140 H Sodium Potassium Chloride Carbon Dioxide BUN Creatinine Glucose POC Glucose 141 H Lactic Acid Calcium Phosphorus Magnesium Direct Bilirubin AST ALT Alkaline Phosphatase Lactate Dehydrogenase Troponin T C-Reactive Protein Total Protein Albumin Prealbumin Triglycerides Cholesterol LDL Cholesterol Direct HDL Cholesterol Urine pH Urine WBC (Auto) Urine Creatinine Urine Total Protein Vancomycin Trough Rheumatoid Factor Complement C4 Miscellaneous Test Crossmatch 10/05/16 10/05/16 10/05/16 05:00 05:09 12:58 WBC RBC Hgb Hct MCV MCH MCHC RDW Plt Count Lymph % (Auto) [place] % (Auto) Lymph # [place] # Baso # Seg Neutrophils % Seg Neuts % (Manual) Lymphocytes % (Manual) Monocytes % (Manual) Eosinophils % (Manual) Basophils % (Manual) Nucleated RBC % Seg Neutrophils # Seg Neutrophils # Man Lymphocytes # (Manual) Monocytes # (Manual) Eosinophils # (Manual) PT INR Fibrinogen dRVVT Confirm Interp Factor V Activity POC ABG pH POC ABG pCO2 POC ABG pO2 Sodium 131 L Potassium Chloride 94.0 L Carbon Dioxide 20 L BUN 22 H Creatinine 2.0 H Glucose 123 H POC Glucose 166 H 179 H Lactic Acid Calcium 7.7 L Phosphorus 2.20 L D Magnesium Direct Bilirubin AST ALT Alkaline Phosphatase Lactate Dehydrogenase Troponin T C-Reactive Protein Total Protein Albumin Prealbumin Triglycerides Cholesterol LDL Cholesterol Direct HDL Cholesterol Urine pH Urine WBC (Auto) Urine Creatinine Urine Total Protein Vancomycin Trough Rheumatoid Factor Complement C4 Miscellaneous Test Crossmatch 10/05/16 10/05/16 10/05/16 15:50 18:53 23:12 WBC RBC Hgb Hct MCV MCH MCHC RDW Plt Count Lymph % (Auto) [place] % (Auto) Lymph # [place] # Baso # Seg Neutrophils % Seg Neuts % (Manual) Lymphocytes % (Manual) Monocytes % (Manual) Eosinophils % (Manual) Basophils % (Manual) Nucleated RBC % Seg Neutrophils # Seg Neutrophils # Man Lymphocytes # (Manual) Monocytes # (Manual) Eosinophils # (Manual) PT INR Fibrinogen dRVVT Confirm Interp Factor V Activity POC ABG pH POC ABG pCO2 POC ABG pO2 Sodium Potassium Chloride Carbon Dioxide BUN Creatinine Glucose POC Glucose 150 H 164 H Lactic Acid Calcium Phosphorus Magnesium Direct Bilirubin AST ALT Alkaline Phosphatase Lactate Dehydrogenase Troponin T C-Reactive Protein Total Protein Albumin Prealbumin Triglycerides Cholesterol LDL Cholesterol Direct HDL Cholesterol Urine pH Urine WBC (Auto) Urine Creatinine Urine Total Protein Vancomycin Trough Rheumatoid Factor Complement C4 Miscellaneous Test Crossmatch See Detail 10/06/16 10/06/16 10/06/16 03:50 03:50 04:53 WBC RBC 3.00 L Hgb 8.6 L Hct 25.8 L MCV MCH MCHC RDW 17.9 H Plt Count 65 L Lymph % (Auto) [place] % (Auto) Lymph # [place] # Baso # Seg Neutrophils % Seg Neuts % (Manual) 30.0 L Lymphocytes % (Manual) 5.0 L Monocytes % (Manual) Eosinophils % (Manual) Basophils % (Manual) Nucleated RBC % Seg Neutrophils # Seg Neutrophils # Man Lymphocytes # (Manual) 0.4 L Monocytes # (Manual) Eosinophils # (Manual) PT INR Fibrinogen dRVVT Confirm Interp Factor V Activity POC ABG pH 7.310 L POC ABG pCO2 49.0 H POC ABG pO2 Sodium 133 L Potassium Chloride 95.9 L Carbon Dioxide BUN 26 H Creatinine 2.0 H Glucose 116 H POC Glucose Lactic Acid Calcium 7.8 L Phosphorus Magnesium Direct Bilirubin AST ALT Alkaline Phosphatase Lactate Dehydrogenase Troponin T C-Reactive Protein Total Protein Albumin Prealbumin Triglycerides Cholesterol LDL Cholesterol Direct HDL Cholesterol Urine pH Urine WBC (Auto) Urine Creatinine Urine Total Protein Vancomycin Trough Rheumatoid Factor Complement C4 Miscellaneous Test Crossmatch 10/06/16 10/06/16 10/06/16 05:23 11:52 18:34 WBC RBC Hgb Hct MCV MCH MCHC RDW Plt Count Lymph % (Auto) [place] % (Auto) Lymph # [place] # Baso # Seg Neutrophils % Seg Neuts % (Manual) Lymphocytes % (Manual) Monocytes % (Manual) Eosinophils % (Manual) Basophils % (Manual) Nucleated RBC % Seg Neutrophils # Seg Neutrophils # Man Lymphocytes # (Manual) Monocytes # (Manual) Eosinophils # (Manual) PT INR Fibrinogen dRVVT Confirm Interp Factor V Activity POC ABG pH POC ABG pCO2 POC ABG pO2 Sodium Potassium Chloride Carbon Dioxide BUN Creatinine Glucose POC Glucose 126 H 116 H 129 H Lactic Acid Calcium Phosphorus Magnesium Direct Bilirubin AST ALT Alkaline Phosphatase Lactate Dehydrogenase Troponin T C-Reactive Protein Total Protein Albumin Prealbumin Triglycerides Cholesterol LDL Cholesterol Direct HDL Cholesterol Urine pH Urine WBC (Auto) Urine Creatinine Urine Total Protein Vancomycin Trough Rheumatoid Factor Complement C4 Miscellaneous Test Crossmatch 10/07/16 10/07/16 10/07/16 03:45 05:00 10:00 WBC 17.0 H RBC 2.68 L Hgb 7.3 L Hct 25.3 L MCV MCH 27 L MCHC 29 L RDW 19.6 H Plt Count 74 L Lymph % (Auto) [place] % (Auto) Lymph # [place] # Baso # Seg Neutrophils % Seg Neuts % (Manual) Lymphocytes % (Manual) 12.0 L Monocytes % (Manual) Eosinophils % (Manual) Basophils % (Manual) Nucleated RBC % 4.0 H Seg Neutrophils # Seg Neutrophils # Man 10.7 H Lymphocytes # (Manual) Monocytes # (Manual) Eosinophils # (Manual) PT INR Fibrinogen dRVVT Confirm Interp Factor V Activity POC ABG pH POC ABG pCO2 POC ABG pO2 Sodium 130 L Potassium 3.2 L Chloride 93.9 L Carbon Dioxide 20 L BUN 44 H Creatinine 2.7 H Glucose 129 H POC Glucose Lactic Acid Calcium 7.4 L Phosphorus Magnesium Direct Bilirubin AST ALT 6 L Alkaline Phosphatase 195 H Lactate Dehydrogenase Troponin T C-Reactive Protein Total Protein 4.9 L Albumin 1.0 L Prealbumin Triglycerides Cholesterol LDL Cholesterol Direct HDL Cholesterol Urine pH Urine WBC (Auto) Urine Creatinine Urine Total Protein Vancomycin Trough Rheumatoid Factor Complement C4 Miscellaneous Test Flexitest 1 H Crossmatch 10/07/16 10/07/16 10/07/16 10:00 11:24 18:10 WBC RBC Hgb Hct MCV MCH MCHC RDW Plt Count Lymph % (Auto) [place] % (Auto) Lymph # [place] # Baso # Seg Neutrophils % Seg Neuts % (Manual) Lymphocytes % (Manual) Monocytes % (Manual) Eosinophils % (Manual) Basophils % (Manual) Nucleated RBC % Seg Neutrophils # Seg Neutrophils # Man Lymphocytes # (Manual) Monocytes # (Manual) Eosinophils # (Manual) PT INR Fibrinogen dRVVT Confirm Interp Factor V Activity POC ABG pH POC ABG pCO2 POC ABG pO2 Sodium Potassium Chloride Carbon Dioxide BUN Creatinine Glucose POC Glucose 116 H 130 H Lactic Acid Calcium Phosphorus Magnesium Direct Bilirubin AST ALT Alkaline Phosphatase Lactate Dehydrogenase Troponin T C-Reactive Protein 19.40 H Total Protein Albumin Prealbumin Triglycerides Cholesterol LDL Cholesterol Direct HDL Cholesterol Urine pH Urine WBC (Auto) Urine Creatinine Urine Total Protein Vancomycin Trough Rheumatoid Factor Complement C4 Miscellaneous Test Crossmatch 10/07/16 10/08/16 10/08/16 18:30 00:00 04:00 WBC RBC Hgb Hct MCV MCH MCHC RDW Plt Count Lymph % (Auto) [place] % (Auto) Lymph # [place] # Baso # Seg Neutrophils % Seg Neuts % (Manual) Lymphocytes % (Manual) Monocytes % (Manual) Eosinophils % (Manual) Basophils % (Manual) Nucleated RBC % Seg Neutrophils # Seg Neutrophils # Man Lymphocytes # (Manual) Monocytes # (Manual) Eosinophils # (Manual) PT INR Fibrinogen dRVVT Confirm Interp Factor V Activity POC ABG pH POC ABG pCO2 POC ABG pO2 Sodium 132 L Potassium 3.3 L Chloride 93.6 L Carbon Dioxide 17 L BUN 59 H Creatinine 2.7 H Glucose 121 H POC Glucose 122 H Lactic Acid Calcium 7.6 L Phosphorus Magnesium Direct Bilirubin AST ALT Alkaline Phosphatase Lactate Dehydrogenase Troponin T C-Reactive Protein Total Protein Albumin Prealbumin Triglycerides Cholesterol LDL Cholesterol Direct HDL Cholesterol Urine pH Urine WBC (Auto) > 182.0 H Urine Creatinine Urine Total Protein Vancomycin Trough Rheumatoid Factor Complement C4 Miscellaneous Test Crossmatch 10/08/16 10/08/16 10/08/16 04:30 05:30 11:51 WBC RBC 5.15 H Hgb 14.4 H D Hct 44.5 H D MCV MCH MCHC RDW 19.5 H Plt Count 56 L Lymph % (Auto) [place] % (Auto) Lymph # [place] # Baso # Seg Neutrophils % Seg Neuts % (Manual) 24.0 L Lymphocytes % (Manual) 8.0 L Monocytes % (Manual) Eosinophils % (Manual) Basophils % (Manual) Nucleated RBC % 9.0 H Seg Neutrophils # Seg Neutrophils # Man Lymphocytes # (Manual) 0.7 L Monocytes # (Manual) Eosinophils # (Manual) PT INR Fibrinogen dRVVT Confirm Interp Factor V Activity POC ABG pH POC ABG pCO2 POC ABG pO2 Sodium Potassium Chloride Carbon Dioxide BUN Creatinine Glucose POC Glucose 125 H 150 H Lactic Acid Calcium Phosphorus Magnesium Direct Bilirubin AST ALT Alkaline Phosphatase Lactate Dehydrogenase Troponin T C-Reactive Protein Total Protein Albumin Prealbumin Triglycerides Cholesterol LDL Cholesterol Direct HDL Cholesterol Urine pH Urine WBC (Auto) Urine Creatinine Urine Total Protein Vancomycin Trough Rheumatoid Factor Complement C4 Miscellaneous Test Crossmatch 10/08/16 10/08/16 10/08/16 12:49 17:07 19:30 WBC RBC Hgb 7.1 L D Hct 22.4 L D MCV MCH MCHC RDW Plt Count Lymph % (Auto) [place] % (Auto) Lymph # [place] # Baso # Seg Neutrophils % Seg Neuts % (Manual) Lymphocytes % (Manual) Monocytes % (Manual) Eosinophils % (Manual) Basophils % (Manual) Nucleated RBC % Seg Neutrophils # Seg Neutrophils # Man Lymphocytes # (Manual) Monocytes # (Manual) Eosinophils # (Manual) PT INR Fibrinogen dRVVT Confirm Interp Factor V Activity POC ABG pH POC ABG pCO2 28.2 L POC ABG pO2 111 H Sodium Potassium Chloride Carbon Dioxide BUN Creatinine Glucose POC Glucose 145 H Lactic Acid Calcium Phosphorus Magnesium Direct Bilirubin AST ALT Alkaline Phosphatase Lactate Dehydrogenase Troponin T C-Reactive Protein Total Protein Albumin Prealbumin Triglycerides Cholesterol LDL Cholesterol Direct HDL Cholesterol Urine pH Urine WBC (Auto) Urine Creatinine Urine Total Protein Vancomycin Trough Rheumatoid Factor Complement C4 Miscellaneous Test Crossmatch 10/08/16 10/09/16 10/09/16 19:30 03:45 03:45 WBC 12.6 H RBC 2.36 L Hgb 6.7 L Hct 21.1 L MCV MCH MCHC RDW 19.5 H Plt Count 75 L Lymph % (Auto) [place] % (Auto) Lymph # [place] # Baso # Seg Neutrophils % Seg Neuts % (Manual) Lymphocytes % (Manual) Monocytes % (Manual) 10.0 H Eosinophils % (Manual) Basophils % (Manual) Nucleated RBC % 3.0 H Seg Neutrophils # Seg Neutrophils # Man Lymphocytes # (Manual) Monocytes # (Manual) 1.3 H Eosinophils # (Manual) PT 18.0 H INR 1.41 H Fibrinogen dRVVT Confirm Interp Factor V Activity POC ABG pH POC ABG pCO2 POC ABG pO2 Sodium 135 L Potassium Chloride Carbon Dioxide 17 L BUN 81 H Creatinine 3.2 H Glucose 109 H POC Glucose Lactic Acid Calcium 7.4 L Phosphorus 4.60 H D Magnesium Direct Bilirubin AST ALT Alkaline Phosphatase Lactate Dehydrogenase Troponin T C-Reactive Protein Total Protein Albumin Prealbumin Triglycerides Cholesterol LDL Cholesterol Direct HDL Cholesterol Urine pH Urine WBC (Auto) Urine Creatinine Urine Total Protein Vancomycin Trough Rheumatoid Factor Complement C4 Miscellaneous Test Crossmatch 10/09/16 10/09/16 10/09/16 03:45 05:14 07:20 WBC RBC Hgb Hct MCV MCH MCHC RDW Plt Count Lymph % (Auto) [place] % (Auto) Lymph # [place] # Baso # Seg Neutrophils % Seg Neuts % (Manual) Lymphocytes % (Manual) Monocytes % (Manual) Eosinophils % (Manual) Basophils % (Manual) Nucleated RBC % Seg Neutrophils # Seg Neutrophils # Man Lymphocytes # (Manual) Monocytes # (Manual) Eosinophils # (Manual) PT 19.0 H INR 1.51 H Fibrinogen dRVVT Confirm Interp Factor V Activity POC ABG pH POC ABG pCO2 POC ABG pO2 Sodium Potassium Chloride Carbon Dioxide BUN Creatinine Glucose POC Glucose 151 H Lactic Acid Calcium Phosphorus Magnesium Direct Bilirubin AST ALT Alkaline Phosphatase Lactate Dehydrogenase Troponin T C-Reactive Protein Total Protein Albumin Prealbumin Triglycerides Cholesterol LDL Cholesterol Direct HDL Cholesterol Urine pH Urine WBC (Auto) Urine Creatinine Urine Total Protein Vancomycin Trough Rheumatoid Factor Complement C4 Miscellaneous Test Crossmatch See Detail 10/09/16 10/09/16 10/09/16 11:46 16:20 16:43 WBC RBC Hgb 7.2 L Hct 22.2 L MCV MCH MCHC RDW Plt Count Lymph % (Auto) [place] % (Auto) Lymph # [place] # Baso # Seg Neutrophils % Seg Neuts % (Manual) Lymphocytes % (Manual) Monocytes % (Manual) Eosinophils % (Manual) Basophils % (Manual) Nucleated RBC % Seg Neutrophils # Seg Neutrophils # Man Lymphocytes # (Manual) Monocytes # (Manual) Eosinophils # (Manual) PT INR Fibrinogen dRVVT Confirm Interp Factor V Activity POC ABG pH POC ABG pCO2 POC ABG pO2 Sodium Potassium Chloride Carbon Dioxide BUN Creatinine Glucose POC Glucose 133 H 141 H Lactic Acid Calcium Phosphorus Magnesium Direct Bilirubin AST ALT Alkaline Phosphatase Lactate Dehydrogenase Troponin T C-Reactive Protein Total Protein Albumin Prealbumin Triglycerides Cholesterol LDL Cholesterol Direct HDL Cholesterol Urine pH Urine WBC (Auto) Urine Creatinine Urine Total Protein Vancomycin Trough Rheumatoid Factor Complement C4 Miscellaneous Test Crossmatch 10/10/16 10/10/16 10/10/16 05:00 05:00 11:19 WBC 18.5 H RBC 2.19 L Hgb 6.4 L Hct 19.6 L* MCV MCH MCHC RDW 19.3 H Plt Count 93 L Lymph % (Auto) [place] % (Auto) Lymph # [place] # Baso # Seg Neutrophils % Seg Neuts % (Manual) Lymphocytes % (Manual) 10.0 L Monocytes % (Manual) Eosinophils % (Manual) Basophils % (Manual) Nucleated RBC % 4.0 H Seg Neutrophils # Seg Neutrophils # Man 11.3 H Lymphocytes # (Manual) Monocytes # (Manual) Eosinophils # (Manual) PT INR Fibrinogen dRVVT Confirm Interp Factor V Activity POC ABG pH POC ABG pCO2 POC ABG pO2 Sodium Potassium 5.7 H D Chloride Carbon Dioxide 16 L BUN 94 H Creatinine 3.1 H Glucose 131 H POC Glucose 153 H Lactic Acid Calcium 8.2 L Phosphorus 5.10 H Magnesium 2.40 H Direct Bilirubin 0.3 H AST ALT < 5 L Alkaline Phosphatase 319 H Lactate Dehydrogenase Troponin T C-Reactive Protein Total Protein 5.1 L Albumin 1.0 L Prealbumin Triglycerides Cholesterol LDL Cholesterol Direct HDL Cholesterol Urine pH Urine WBC (Auto) Urine Creatinine Urine Total Protein Vancomycin Trough Rheumatoid Factor Complement C4 Miscellaneous Test Crossmatch 10/10/16 10/10/16 10/11/16 17:50 23:30 04:15 WBC RBC Hgb Hct MCV MCH MCHC RDW Plt Count Lymph % (Auto) [place] % (Auto) Lymph # [place] # Baso # Seg Neutrophils % Seg Neuts % (Manual) Lymphocytes % (Manual) Monocytes % (Manual) Eosinophils % (Manual) Basophils % (Manual) Nucleated RBC % Seg Neutrophils # Seg Neutrophils # Man Lymphocytes # (Manual) Monocytes # (Manual) Eosinophils # (Manual) PT INR Fibrinogen dRVVT Confirm Interp Factor V Activity POC ABG pH POC ABG pCO2 POC ABG pO2 Sodium Potassium Chloride 96.4 L Carbon Dioxide 21 L BUN 57 H Creatinine 2.1 H Glucose 151 H POC Glucose 146 H 141 H Lactic Acid Calcium 8.3 L Phosphorus Magnesium Direct Bilirubin AST ALT Alkaline Phosphatase Lactate Dehydrogenase Troponin T C-Reactive Protein Total Protein Albumin Prealbumin Triglycerides Cholesterol LDL Cholesterol Direct HDL Cholesterol Urine pH Urine WBC (Auto) Urine Creatinine Urine Total Protein Vancomycin Trough Rheumatoid Factor Complement C4 Miscellaneous Test Crossmatch 10/11/16 10/11/16 10/11/16 04:15 04:15 05:30 WBC 28.3 H RBC 3.12 L Hgb 9.3 L Hct 28.7 L D MCV MCH MCHC RDW 17.7 H Plt Count 128 L Lymph % (Auto) [place] % (Auto) Lymph # [place] # Baso # Seg Neutrophils % Seg Neuts % (Manual) Lymphocytes % (Manual) Monocytes % (Manual) Eosinophils % (Manual) Basophils % (Manual) Nucleated RBC % Seg Neutrophils # Seg Neutrophils # Man Lymphocytes # (Manual) Monocytes # (Manual) Eosinophils # (Manual) PT INR Fibrinogen dRVVT Confirm Interp Factor V Activity POC ABG pH POC ABG pCO2 POC ABG pO2 Sodium Potassium Chloride Carbon Dioxide BUN Creatinine Glucose POC Glucose 167 H Lactic Acid Calcium Phosphorus Magnesium Direct Bilirubin AST ALT Alkaline Phosphatase Lactate Dehydrogenase Troponin T C-Reactive Protein 15.80 H Total Protein Albumin Prealbumin Triglycerides Cholesterol LDL Cholesterol Direct HDL Cholesterol Urine pH Urine WBC (Auto) Urine Creatinine Urine Total Protein Vancomycin Trough Rheumatoid Factor Complement C4 Miscellaneous Test Crossmatch 10/11/16 10/11/16 10/11/16 11:40 15:49 23:57 WBC RBC Hgb Hct MCV MCH MCHC RDW Plt Count Lymph % (Auto) [place] % (Auto) Lymph # [place] # Baso # Seg Neutrophils % Seg Neuts % (Manual) Lymphocytes % (Manual) Monocytes % (Manual) Eosinophils % (Manual) Basophils % (Manual) Nucleated RBC % Seg Neutrophils # Seg Neutrophils # Man Lymphocytes # (Manual) Monocytes # (Manual) Eosinophils # (Manual) PT INR Fibrinogen dRVVT Confirm Interp Factor V Activity POC ABG pH POC ABG pCO2 POC ABG pO2 Sodium Potassium Chloride Carbon Dioxide BUN Creatinine Glucose POC Glucose 139 H 168 H 161 H Lactic Acid Calcium Phosphorus Magnesium Direct Bilirubin AST ALT Alkaline Phosphatase Lactate Dehydrogenase Troponin T C-Reactive Protein Total Protein Albumin Prealbumin Triglycerides Cholesterol LDL Cholesterol Direct HDL Cholesterol Urine pH Urine WBC (Auto) Urine Creatinine Urine Total Protein Vancomycin Trough Rheumatoid Factor Complement C4 Miscellaneous Test Crossmatch 10/12/16 10/12/16 10/12/16 04:40 04:40 05:44 WBC 22.5 H RBC 2.88 L Hgb 8.8 L Hct 26.8 L MCV MCH MCHC RDW 17.8 H Plt Count Lymph % (Auto) [place] % (Auto) Lymph # [place] # Baso # Seg Neutrophils % Seg Neuts % (Manual) Lymphocytes % (Manual) Monocytes % (Manual) Eosinophils % (Manual) Basophils % (Manual) Nucleated RBC % Seg Neutrophils # Seg Neutrophils # Man Lymphocytes # (Manual) Monocytes # (Manual) Eosinophils # (Manual) PT INR Fibrinogen dRVVT Confirm Interp Factor V Activity POC ABG pH POC ABG pCO2 POC ABG pO2 Sodium 134 L Potassium Chloride 93.0 L Carbon Dioxide BUN 74 H Creatinine 2.5 H Glucose 137 H POC Glucose 158 H Lactic Acid Calcium 8.2 L Phosphorus Magnesium Direct Bilirubin AST ALT Alkaline Phosphatase Lactate Dehydrogenase Troponin T C-Reactive Protein Total Protein Albumin Prealbumin Triglycerides Cholesterol LDL Cholesterol Direct HDL Cholesterol Urine pH Urine WBC (Auto) Urine Creatinine Urine Total Protein Vancomycin Trough Rheumatoid Factor Complement C4 Miscellaneous Test Crossmatch 10/12/16 10/12/16 10/12/16 12:27 18:18 23:46 WBC RBC Hgb Hct MCV MCH MCHC RDW Plt Count Lymph % (Auto) [place] % (Auto) Lymph # [place] # Baso # Seg Neutrophils % Seg Neuts % (Manual) Lymphocytes % (Manual) Monocytes % (Manual) Eosinophils % (Manual) Basophils % (Manual) Nucleated RBC % Seg Neutrophils # Seg Neutrophils # Man Lymphocytes # (Manual) Monocytes # (Manual) Eosinophils # (Manual) PT INR Fibrinogen dRVVT Confirm Interp Factor V Activity POC ABG pH POC ABG pCO2 POC ABG pO2 Sodium Potassium Chloride Carbon Dioxide BUN Creatinine Glucose POC Glucose 153 H 140 H 150 H Lactic Acid Calcium Phosphorus Magnesium Direct Bilirubin AST ALT Alkaline Phosphatase Lactate Dehydrogenase Troponin T C-Reactive Protein Total Protein Albumin Prealbumin Triglycerides Cholesterol LDL Cholesterol Direct HDL Cholesterol Urine pH Urine WBC (Auto) Urine Creatinine Urine Total Protein Vancomycin Trough Rheumatoid Factor Complement C4 Miscellaneous Test Crossmatch 08/10/13/16 10/13/16 06:22 09:20 12:29 WBC RBC Hgb Hct MCV MCH MCHC RDW Plt Count Lymph % (Auto) [place] % (Auto) Lymph # [place] # Baso # Seg Neutrophils % Seg Neuts % (Manual) Lymphocytes % (Manual) Monocytes % (Manual) Eosinophils % (Manual) Basophils % (Manual) Nucleated RBC % Seg Neutrophils # Seg Neutrophils # Man Lymphocytes # (Manual) Monocytes # (Manual) Eosinophils # (Manual) PT INR Fibrinogen dRVVT Confirm Interp Factor V Activity POC ABG pH POC ABG pCO2 POC ABG pO2 Sodium Potassium Chloride Carbon Dioxide BUN Creatinine Glucose POC Glucose 165 H 193 H Lactic Acid Calcium Phosphorus Magnesium Direct Bilirubin AST ALT Alkaline Phosphatase Lactate Dehydrogenase Troponin T C-Reactive Protein Total Protein Albumin Prealbumin Triglycerides Cholesterol LDL Cholesterol Direct HDL Cholesterol Urine pH Urine WBC (Auto) Urine Creatinine Urine Total Protein Vancomycin Trough Rheumatoid Factor Complement C4 Miscellaneous Test Flexitest 1 H Crossmatch 10/13/16 10/13/16 10/13/16 18:09 Unknown Unknown WBC 23.4 H RBC 2.83 L Hgb 8.7 L Hct 26.1 L MCV MCH MCHC RDW 18.1 H Plt Count Lymph % (Auto) [place] % (Auto) Lymph # [place] # Baso # Seg Neutrophils % Seg Neuts % (Manual) Lymphocytes % (Manual) Monocytes % (Manual) Eosinophils % (Manual) Basophils % (Manual) Nucleated RBC % Seg Neutrophils # Seg Neutrophils # Man Lymphocytes # (Manual) Monocytes # (Manual) Eosinophils # (Manual) PT INR Fibrinogen dRVVT Confirm Interp Factor V Activity POC ABG pH POC ABG pCO2 POC ABG pO2 Sodium Potassium Chloride 95.8 L Carbon Dioxide BUN 82 H Creatinine 2.6 H Glucose 152 H POC Glucose 166 H Lactic Acid Calcium Phosphorus Magnesium Direct Bilirubin AST ALT Alkaline Phosphatase Lactate Dehydrogenase Troponin T C-Reactive Protein Total Protein Albumin Prealbumin Triglycerides Cholesterol LDL Cholesterol Direct HDL Cholesterol Urine pH Urine WBC (Auto) Urine Creatinine Urine Total Protein Vancomycin Trough Rheumatoid Factor Complement C4 Miscellaneous Test Crossmatch 10/14/16 10/14/16 10/14/16 05:38 06:35 08:10 WBC 20.7 H RBC 2.81 L Hgb 8.4 L Hct 27.2 L MCV MCH MCHC RDW 19.4 H Plt Count Lymph % (Auto) [place] % (Auto) Lymph # [place] # Baso # Seg Neutrophils % Seg Neuts % (Manual) Lymphocytes % (Manual) Monocytes % (Manual) Eosinophils % (Manual) Basophils % (Manual) Nucleated RBC % Seg Neutrophils # Seg Neutrophils # Man Lymphocytes # (Manual) Monocytes # (Manual) Eosinophils # (Manual) PT INR Fibrinogen dRVVT Confirm Interp Factor V Activity POC ABG pH POC ABG pCO2 POC ABG pO2 Sodium Potassium Chloride Carbon Dioxide BUN 58 H Creatinine 1.9 H Glucose 169 H POC Glucose 195 H Lactic Acid Calcium Phosphorus Magnesium Direct Bilirubin AST ALT Alkaline Phosphatase Lactate Dehydrogenase Troponin T C-Reactive Protein Total Protein Albumin Prealbumin Triglycerides Cholesterol LDL Cholesterol Direct HDL Cholesterol Urine pH Urine WBC (Auto) Urine Creatinine Urine Total Protein Vancomycin Trough Rheumatoid Factor Complement C4 Miscellaneous Test Crossmatch 10/14/16 10/14/16 10/14/16 11:44 17:13 23:28 WBC RBC Hgb Hct MCV MCH MCHC RDW Plt Count Lymph % (Auto) [place] % (Auto) Lymph # [place] # Baso # Seg Neutrophils % Seg Neuts % (Manual) Lymphocytes % (Manual) Monocytes % (Manual) Eosinophils % (Manual) Basophils % (Manual) Nucleated RBC % Seg Neutrophils # Seg Neutrophils # Man Lymphocytes # (Manual) Monocytes # (Manual) Eosinophils # (Manual) PT INR Fibrinogen dRVVT Confirm Interp Factor V Activity POC ABG pH POC ABG pCO2 POC ABG pO2 Sodium Potassium Chloride Carbon Dioxide BUN Creatinine Glucose POC Glucose 174 H 121 H 151 H Lactic Acid Calcium Phosphorus Magnesium Direct Bilirubin AST ALT Alkaline Phosphatase Lactate Dehydrogenase Troponin T C-Reactive Protein Total Protein Albumin Prealbumin Triglycerides Cholesterol LDL Cholesterol Direct HDL Cholesterol Urine pH Urine WBC (Auto) Urine Creatinine Urine Total Protein Vancomycin Trough Rheumatoid Factor Complement C4 Miscellaneous Test Crossmatch 10/15/16 10/15/16 10/15/16 05:06 12:26 17:48 WBC RBC Hgb Hct MCV MCH MCHC RDW Plt Count Lymph % (Auto) [place] % (Auto) Lymph # [place] # Baso # Seg Neutrophils % Seg Neuts % (Manual) Lymphocytes % (Manual) Monocytes % (Manual) Eosinophils % (Manual) Basophils % (Manual) Nucleated RBC % Seg Neutrophils # Seg Neutrophils # Man Lymphocytes # (Manual) Monocytes # (Manual) Eosinophils # (Manual) PT INR Fibrinogen dRVVT Confirm Interp Factor V Activity POC ABG pH POC ABG pCO2 POC ABG pO2 Sodium Potassium Chloride Carbon Dioxide BUN Creatinine Glucose POC Glucose 151 H 149 H 153 H Lactic Acid Calcium Phosphorus Magnesium Direct Bilirubin AST ALT Alkaline Phosphatase Lactate Dehydrogenase Troponin T C-Reactive Protein Total Protein Albumin Prealbumin Triglycerides Cholesterol LDL Cholesterol Direct HDL Cholesterol Urine pH Urine WBC (Auto) Urine Creatinine Urine Total Protein Vancomycin Trough Rheumatoid Factor Complement C4 Miscellaneous Test Crossmatch 10/15/16 10/15/16 10/16/16 Unknown Unknown 00:02 WBC 23.4 H RBC 2.78 L Hgb 8.5 L Hct 25.7 L MCV MCH MCHC RDW 18.7 H Plt Count Lymph % (Auto) [place] % (Auto) Lymph # [place] # Baso # Seg Neutrophils % Seg Neuts % (Manual) Lymphocytes % (Manual) Monocytes % (Manual) Eosinophils % (Manual) Basophils % (Manual) Nucleated RBC % Seg Neutrophils # Seg Neutrophils # Man Lymphocytes # (Manual) Monocytes # (Manual) Eosinophils # (Manual) PT INR Fibrinogen dRVVT Confirm Interp Factor V Activity POC ABG pH POC ABG pCO2 POC ABG pO2 Sodium Potassium Chloride Carbon Dioxide BUN 73 H Creatinine 2.3 H Glucose 120 H POC Glucose 137 H Lactic Acid Calcium Phosphorus Magnesium Direct Bilirubin AST ALT Alkaline Phosphatase Lactate Dehydrogenase Troponin T C-Reactive Protein Total Protein Albumin Prealbumin Triglycerides Cholesterol LDL Cholesterol Direct HDL Cholesterol Urine pH Urine WBC (Auto) Urine Creatinine Urine Total Protein Vancomycin Trough Rheumatoid Factor Complement C4 Miscellaneous Test Crossmatch 10/16/16 10/16/16 10/16/16 05:44 06:25 06:25 WBC 22.5 H RBC 2.76 L Hgb 8.3 L Hct 25.2 L MCV MCH MCHC RDW 18.3 H Plt Count Lymph % (Auto) [place] % (Auto) Lymph # [place] # Baso # Seg Neutrophils % Seg Neuts % (Manual) Lymphocytes % (Manual) Monocytes % (Manual) Eosinophils % (Manual) Basophils % (Manual) Nucleated RBC % Seg Neutrophils # Seg Neutrophils # Man Lymphocytes # (Manual) Monocytes # (Manual) Eosinophils # (Manual) PT INR Fibrinogen dRVVT Confirm Interp Factor V Activity POC ABG pH POC ABG pCO2 POC ABG pO2 Sodium Potassium Chloride Carbon Dioxide BUN 92 H Creatinine 3.0 H Glucose 138 H POC Glucose 110 H Lactic Acid Calcium Phosphorus Magnesium Direct Bilirubin AST ALT Alkaline Phosphatase Lactate Dehydrogenase Troponin T C-Reactive Protein Total Protein Albumin Prealbumin Triglycerides Cholesterol LDL Cholesterol Direct HDL Cholesterol Urine pH Urine WBC (Auto) Urine Creatinine Urine Total Protein Vancomycin Trough Rheumatoid Factor Complement C4 Miscellaneous Test Crossmatch 10/16/16 10/16/16 10/16/16 11:27 11:48 17:36 WBC RBC Hgb Hct MCV MCH MCHC RDW Plt Count Lymph % (Auto) [place] % (Auto) Lymph # [place] # Baso # Seg Neutrophils % Seg Neuts % (Manual) Lymphocytes % (Manual) Monocytes % (Manual) Eosinophils % (Manual) Basophils % (Manual) Nucleated RBC % Seg Neutrophils # Seg Neutrophils # Man Lymphocytes # (Manual) Monocytes # (Manual) Eosinophils # (Manual) PT INR Fibrinogen dRVVT Confirm Interp Factor V Activity POC ABG pH 7.582 H POC ABG pCO2 27.4 L POC ABG pO2 110 H Sodium Potassium Chloride Carbon Dioxide BUN Creatinine Glucose POC Glucose 121 H 133 H Lactic Acid Calcium Phosphorus Magnesium Direct Bilirubin AST ALT Alkaline Phosphatase Lactate Dehydrogenase Troponin T C-Reactive Protein Total Protein Albumin Prealbumin Triglycerides Cholesterol LDL Cholesterol Direct HDL Cholesterol Urine pH Urine WBC (Auto) Urine Creatinine Urine Total Protein Vancomycin Trough Rheumatoid Factor Complement C4 Miscellaneous Test Crossmatch 10/16/16 10/17/16 10/17/16 20:48 04:24 04:24 WBC 21.4 H RBC 2.72 L Hgb 8.0 L Hct 25.2 L MCV MCH MCHC RDW 18.0 H Plt Count Lymph % (Auto) [place] % (Auto) Lymph # [place] # Baso # Seg Neutrophils % Seg Neuts % (Manual) Lymphocytes % (Manual) Monocytes % (Manual) Eosinophils % (Manual) Basophils % (Manual) Nucleated RBC % Seg Neutrophils # Seg Neutrophils # Man Lymphocytes # (Manual) Monocytes # (Manual) Eosinophils # (Manual) PT INR Fibrinogen dRVVT Confirm Interp Factor V Activity POC ABG pH 7.561 H POC ABG pCO2 24.4 L POC ABG pO2 77 L Sodium 148 H Potassium Chloride Carbon Dioxide BUN 104 H Creatinine 3.0 H Glucose 149 H POC Glucose Lactic Acid Calcium Phosphorus Magnesium Direct Bilirubin AST ALT Alkaline Phosphatase 138 H Lactate Dehydrogenase Troponin T C-Reactive Protein Total Protein 6.2 L Albumin 1.5 L Prealbumin Triglycerides Cholesterol LDL Cholesterol Direct HDL Cholesterol Urine pH Urine WBC (Auto) Urine Creatinine Urine Total Protein Vancomycin Trough Rheumatoid Factor Complement C4 Miscellaneous Test Crossmatch 10/17/16 10/17/16 10/17/16 06:02 12:17 17:14 WBC RBC Hgb Hct MCV MCH MCHC RDW Plt Count Lymph % (Auto) [place] % (Auto) Lymph # [place] # Baso # Seg Neutrophils % Seg Neuts % (Manual) Lymphocytes % (Manual) Monocytes % (Manual) Eosinophils % (Manual) Basophils % (Manual) Nucleated RBC % Seg Neutrophils # Seg Neutrophils # Man Lymphocytes # (Manual) Monocytes # (Manual) Eosinophils # (Manual) PT INR Fibrinogen dRVVT Confirm Interp Factor V Activity POC ABG pH POC ABG pCO2 POC ABG pO2 Sodium Potassium Chloride Carbon Dioxide BUN Creatinine Glucose POC Glucose 170 H 167 H 126 H Lactic Acid Calcium Phosphorus Magnesium Direct Bilirubin AST ALT Alkaline Phosphatase Lactate Dehydrogenase Troponin T C-Reactive Protein Total Protein Albumin Prealbumin Triglycerides Cholesterol LDL Cholesterol Direct HDL Cholesterol Urine pH Urine WBC (Auto) Urine Creatinine Urine Total Protein Vancomycin Trough Rheumatoid Factor Complement C4 Miscellaneous Test Crossmatch 10/17/16 10/18/16 10/18/16 23:17 04:00 04:00 WBC 20.7 H RBC 2.47 L Hgb 7.4 L Hct 22.9 L MCV MCH MCHC RDW 17.5 H Plt Count Lymph % (Auto) [place] % (Auto) Lymph # [place] # Baso # Seg Neutrophils % Seg Neuts % (Manual) Lymphocytes % (Manual) Monocytes % (Manual) Eosinophils % (Manual) Basophils % (Manual) Nucleated RBC % Seg Neutrophils # Seg Neutrophils # Man Lymphocytes # (Manual) Monocytes # (Manual) Eosinophils # (Manual) PT INR Fibrinogen dRVVT Confirm Interp Factor V Activity POC ABG pH POC ABG pCO2 POC ABG pO2 Sodium 149 H Potassium Chloride 107.9 H Carbon Dioxide 20 L BUN 117 H Creatinine 3.2 H Glucose 119 H POC Glucose 121 H Lactic Acid Calcium Phosphorus Magnesium Direct Bilirubin AST ALT Alkaline Phosphatase Lactate Dehydrogenase Troponin T C-Reactive Protein Total Protein Albumin Prealbumin Triglycerides Cholesterol LDL Cholesterol Direct HDL Cholesterol Urine pH Urine WBC (Auto) Urine Creatinine Urine Total Protein Vancomycin Trough Rheumatoid Factor Complement C4 Miscellaneous Test Crossmatch 10/18/16 10/18/16 10/18/16 05:23 10:46 17:30 WBC RBC Hgb Hct MCV MCH MCHC RDW Plt Count Lymph % (Auto) [place] % (Auto) Lymph # [place] # Baso # Seg Neutrophils % Seg Neuts % (Manual) Lymphocytes % (Manual) Monocytes % (Manual) Eosinophils % (Manual) Basophils % (Manual) Nucleated RBC % Seg Neutrophils # Seg Neutrophils # Man Lymphocytes # (Manual) Monocytes # (Manual) Eosinophils # (Manual) PT INR Fibrinogen dRVVT Confirm Interp Factor V Activity POC ABG pH POC ABG pCO2 POC ABG pO2 Sodium Potassium Chloride Carbon Dioxide BUN Creatinine Glucose POC Glucose 119 H 155 H 124 H Lactic Acid Calcium Phosphorus Magnesium Direct Bilirubin AST ALT Alkaline Phosphatase Lactate Dehydrogenase Troponin T C-Reactive Protein Total Protein Albumin Prealbumin Triglycerides Cholesterol LDL Cholesterol Direct HDL Cholesterol Urine pH Urine WBC (Auto) Urine Creatinine Urine Total Protein Vancomycin Trough Rheumatoid Factor Complement C4 Miscellaneous Test Crossmatch 10/19/16 10/19/16 10/19/16 04:00 04:00 05:25 WBC 17.4 H RBC 2.54 L Hgb 7.7 L Hct 23.6 L MCV MCH MCHC RDW 17.3 H Plt Count Lymph % (Auto) [place] % (Auto) Lymph # [place] # Baso # Seg Neutrophils % Seg Neuts % (Manual) Lymphocytes % (Manual) Monocytes % (Manual) Eosinophils % (Manual) Basophils % (Manual) Nucleated RBC % Seg Neutrophils # Seg Neutrophils # Man Lymphocytes # (Manual) Monocytes # (Manual) Eosinophils # (Manual) PT INR Fibrinogen dRVVT Confirm Interp Factor V Activity POC ABG pH POC ABG pCO2 POC ABG pO2 Sodium Potassium Chloride Carbon Dioxide BUN 72 H Creatinine 2.1 H Glucose 116 H POC Glucose 119 H Lactic Acid Calcium Phosphorus Magnesium Direct Bilirubin AST ALT Alkaline Phosphatase Lactate Dehydrogenase Troponin T C-Reactive Protein Total Protein Albumin Prealbumin Triglycerides Cholesterol LDL Cholesterol Direct HDL Cholesterol Urine pH Urine WBC (Auto) Urine Creatinine Urine Total Protein Vancomycin Trough Rheumatoid Factor Complement C4 Miscellaneous Test Crossmatch 10/19/16 10/19/16 10/20/16 11:46 23:59 06:00 WBC RBC Hgb Hct MCV MCH MCHC RDW Plt Count Lymph % (Auto) [place] % (Auto) Lymph # [place] # Baso # Seg Neutrophils % Seg Neuts % (Manual) Lymphocytes % (Manual) Monocytes % (Manual) Eosinophils % (Manual) Basophils % (Manual) Nucleated RBC % Seg Neutrophils # Seg Neutrophils # Man Lymphocytes # (Manual) Monocytes # (Manual) Eosinophils # (Manual) PT INR Fibrinogen dRVVT Confirm Interp Factor V Activity POC ABG pH POC ABG pCO2 POC ABG pO2 Sodium Potassium Chloride Carbon Dioxide 17 L BUN 94 H Creatinine 2.7 H Glucose POC Glucose 116 H 117 H Lactic Acid Calcium Phosphorus Magnesium Direct Bilirubin AST ALT Alkaline Phosphatase Lactate Dehydrogenase Troponin T C-Reactive Protein Total Protein Albumin Prealbumin Triglycerides Cholesterol LDL Cholesterol Direct HDL Cholesterol Urine pH Urine WBC (Auto) Urine Creatinine Urine Total Protein Vancomycin Trough Rheumatoid Factor Complement C4 Miscellaneous Test Crossmatch 10/20/16 10/20/16 10/20/16 06:00 11:49 16:00 WBC 19.7 H RBC 2.51 L Hgb 7.7 L Hct 23.5 L MCV MCH MCHC RDW 17.5 H Plt Count Lymph % (Auto) [place] % (Auto) Lymph # [place] # Baso # Seg Neutrophils % Seg Neuts % (Manual) Lymphocytes % (Manual) Monocytes % (Manual) Eosinophils % (Manual) Basophils % (Manual) Nucleated RBC % Seg Neutrophils # Seg Neutrophils # Man Lymphocytes # (Manual) Monocytes # (Manual) Eosinophils # (Manual) PT INR Fibrinogen dRVVT Confirm Interp Factor V Activity POC ABG pH POC ABG pCO2 POC ABG pO2 Sodium Potassium Chloride Carbon Dioxide BUN Creatinine Glucose POC Glucose 117 H Lactic Acid Calcium Phosphorus Magnesium Direct Bilirubin AST ALT Alkaline Phosphatase Lactate Dehydrogenase Troponin T C-Reactive Protein Total Protein Albumin Prealbumin Triglycerides Cholesterol LDL Cholesterol Direct HDL Cholesterol Urine pH Urine WBC (Auto) Urine Creatinine Urine Total Protein Vancomycin Trough Rheumatoid Factor Complement C4 Miscellaneous Test Flexitest 1 H Crossmatch 10/20/16 10/20/16 10/21/16 18:36 23:39 04:00 WBC RBC Hgb Hct MCV MCH MCHC RDW Plt Count Lymph % (Auto) [place] % (Auto) Lymph # [place] # Baso # Seg Neutrophils % Seg Neuts % (Manual) Lymphocytes % (Manual) Monocytes % (Manual) Eosinophils % (Manual) Basophils % (Manual) Nucleated RBC % Seg Neutrophils # Seg Neutrophils # Man Lymphocytes # (Manual) Monocytes # (Manual) Eosinophils # (Manual) PT INR Fibrinogen dRVVT Confirm Interp Factor V Activity POC ABG pH POC ABG pCO2 POC ABG pO2 Sodium Potassium 5.4 H D Chloride Carbon Dioxide 15 L BUN 110 H Creatinine 3.0 H Glucose POC Glucose 127 H 114 H Lactic Acid Calcium Phosphorus Magnesium Direct Bilirubin AST ALT Alkaline Phosphatase Lactate Dehydrogenase Troponin T C-Reactive Protein Total Protein Albumin Prealbumin Triglycerides Cholesterol LDL Cholesterol Direct HDL Cholesterol Urine pH Urine WBC (Auto) Urine Creatinine Urine Total Protein Vancomycin Trough Rheumatoid Factor Complement C4 Miscellaneous Test Crossmatch 10/21/16 10/21/16 10/22/16 05:54 23:46 05:18 WBC RBC Hgb Hct MCV MCH MCHC RDW Plt Count Lymph % (Auto) [place] % (Auto) Lymph # [place] # Baso # Seg Neutrophils % Seg Neuts % (Manual) Lymphocytes % (Manual) Monocytes % (Manual) Eosinophils % (Manual) Basophils % (Manual) Nucleated RBC % Seg Neutrophils # Seg Neutrophils # Man Lymphocytes # (Manual) Monocytes # (Manual) Eosinophils # (Manual) PT INR Fibrinogen dRVVT Confirm Interp Factor V Activity POC ABG pH POC ABG pCO2 POC ABG pO2 Sodium Potassium Chloride Carbon Dioxide BUN Creatinine Glucose POC Glucose 119 H 108 H 109 H Lactic Acid Calcium Phosphorus Magnesium Direct Bilirubin AST ALT Alkaline Phosphatase Lactate Dehydrogenase Troponin T C-Reactive Protein Total Protein Albumin Prealbumin Triglycerides Cholesterol LDL Cholesterol Direct HDL Cholesterol Urine pH Urine WBC (Auto) Urine Creatinine Urine Total Protein Vancomycin Trough Rheumatoid Factor Complement C4 Miscellaneous Test Crossmatch 10/22/16 10/22/16 10/22/16 06:40 06:40 06:40 WBC 14.0 H RBC 2.03 L Hgb 7.0 L Hct 20.5 L MCV 98 H MCH 34 H MCHC 35 H RDW 17.8 H Plt Count Lymph % (Auto) [place] % (Auto) 9.9 H Lymph # [place] # 1.4 H Baso # 0.2 H Seg Neutrophils % 72.0 H Seg Neuts % (Manual) Lymphocytes % (Manual) Monocytes % (Manual) Eosinophils % (Manual) Basophils % (Manual) Nucleated RBC % Seg Neutrophils # 10.0 H Seg Neutrophils # Man Lymphocytes # (Manual) Monocytes # (Manual) Eosinophils # (Manual) PT INR Fibrinogen dRVVT Confirm Interp Factor V Activity POC ABG pH POC ABG pCO2 POC ABG pO2 Sodium 130 L D Potassium Chloride 92.4 L Carbon Dioxide 20 L BUN 50 H Creatinine 1.6 H Glucose 589 H* POC Glucose Lactic Acid Calcium 7.8 L D Phosphorus Magnesium 1.60 L Direct Bilirubin AST ALT Alkaline Phosphatase Lactate Dehydrogenase Troponin T C-Reactive Protein Total Protein Albumin Prealbumin Triglycerides Cholesterol LDL Cholesterol Direct HDL Cholesterol Urine pH Urine WBC (Auto) Urine Creatinine Urine Total Protein Vancomycin Trough Rheumatoid Factor Complement C4 Miscellaneous Test Crossmatch 09/04/0810/22/16 10/22/16 11:39 16:44 23:36 WBC RBC Hgb Hct MCV MCH MCHC RDW Plt Count Lymph % (Auto) [place] % (Auto) Lymph # [place] # Baso # Seg Neutrophils % Seg Neuts % (Manual) Lymphocytes % (Manual) Monocytes % (Manual) Eosinophils % (Manual) Basophils % (Manual) Nucleated RBC % Seg Neutrophils # Seg Neutrophils # Man Lymphocytes # (Manual) Monocytes # (Manual) Eosinophils # (Manual) PT INR Fibrinogen dRVVT Confirm Interp Factor V Activity POC ABG pH POC ABG pCO2 POC ABG pO2 Sodium Potassium Chloride Carbon Dioxide BUN Creatinine Glucose POC Glucose 142 H 163 H 123 H Lactic Acid Calcium Phosphorus Magnesium Direct Bilirubin AST ALT Alkaline Phosphatase Lactate Dehydrogenase Troponin T C-Reactive Protein Total Protein Albumin Prealbumin Triglycerides Cholesterol LDL Cholesterol Direct HDL Cholesterol Urine pH Urine WBC (Auto) Urine Creatinine Urine Total Protein Vancomycin Trough Rheumatoid Factor Complement C4 Miscellaneous Test Crossmatch 10/23/16 10/23/16 10/23/16 04:58 06:00 12:12 WBC RBC Hgb Hct MCV MCH MCHC RDW Plt Count Lymph % (Auto) [place] % (Auto) Lymph # [place] # Baso # Seg Neutrophils % Seg Neuts % (Manual) Lymphocytes % (Manual) Monocytes % (Manual) Eosinophils % (Manual) Basophils % (Manual) Nucleated RBC % Seg Neutrophils # Seg Neutrophils # Man Lymphocytes # (Manual) Monocytes # (Manual) Eosinophils # (Manual) PT INR Fibrinogen dRVVT Confirm Interp Factor V Activity POC ABG pH POC ABG pCO2 POC ABG pO2 Sodium 133 L Potassium 3.5 L Chloride 96.1 L Carbon Dioxide 18 L BUN 76 H Creatinine 2.1 H Glucose POC Glucose 133 H 138 H Lactic Acid Calcium 8.3 L Phosphorus Magnesium Direct Bilirubin AST ALT Alkaline Phosphatase Lactate Dehydrogenase Troponin T C-Reactive Protein Total Protein Albumin Prealbumin Triglycerides Cholesterol LDL Cholesterol Direct HDL Cholesterol Urine pH Urine WBC (Auto) Urine Creatinine Urine Total Protein Vancomycin Trough Rheumatoid Factor Complement C4 Miscellaneous Test Crossmatch 10/23/16 10/23/16 10/24/16 16:53 23:37 04:00 WBC RBC Hgb Hct MCV MCH MCHC RDW Plt Count Lymph % (Auto) [place] % (Auto) Lymph # [place] # Baso # Seg Neutrophils % Seg Neuts % (Manual) Lymphocytes % (Manual) Monocytes % (Manual) Eosinophils % (Manual) Basophils % (Manual) Nucleated RBC % Seg Neutrophils # Seg Neutrophils # Man Lymphocytes # (Manual) Monocytes # (Manual) Eosinophils # (Manual) PT INR Fibrinogen dRVVT Confirm Interp Factor V Activity POC ABG pH POC ABG pCO2 POC ABG pO2 Sodium 131 L Potassium Chloride 94.5 L Carbon Dioxide 19 L BUN 97 H Creatinine 2.6 H Glucose 110 H POC Glucose 125 H 123 H Lactic Acid Calcium 8.3 L Phosphorus Magnesium Direct Bilirubin AST ALT Alkaline Phosphatase Lactate Dehydrogenase Troponin T C-Reactive Protein Total Protein Albumin Prealbumin Triglycerides Cholesterol LDL Cholesterol Direct HDL Cholesterol Urine pH Urine WBC (Auto) Urine Creatinine Urine Total Protein Vancomycin Trough Rheumatoid Factor Complement C4 Miscellaneous Test Crossmatch 10/24/16 10/24/16 10/24/16 07:49 11:39 17:52 WBC RBC Hgb 6.0 L Hct 19.7 L* MCV MCH MCHC RDW Plt Count Lymph % (Auto) [place] % (Auto) Lymph # [place] # Baso # Seg Neutrophils % Seg Neuts % (Manual) Lymphocytes % (Manual) Monocytes % (Manual) Eosinophils % (Manual) Basophils % (Manual) Nucleated RBC % Seg Neutrophils # Seg Neutrophils # Man Lymphocytes # (Manual) Monocytes # (Manual) Eosinophils # (Manual) PT INR Fibrinogen dRVVT Confirm Interp Factor V Activity POC ABG pH POC ABG pCO2 POC ABG pO2 Sodium Potassium Chloride Carbon Dioxide BUN Creatinine Glucose POC Glucose 106 H 158 H Lactic Acid Calcium Phosphorus Magnesium Direct Bilirubin AST ALT Alkaline Phosphatase Lactate Dehydrogenase Troponin T C-Reactive Protein Total Protein Albumin Prealbumin Triglycerides Cholesterol LDL Cholesterol Direct HDL Cholesterol Urine pH Urine WBC (Auto) Urine Creatinine Urine Total Protein Vancomycin Trough Rheumatoid Factor Complement C4 Miscellaneous Test Crossmatch 10/24/16 10/24/16 10/24/16 20:00 22:27 Unknown WBC RBC Hgb 9.4 L D Hct 27.5 L D MCV MCH MCHC RDW Plt Count Lymph % (Auto) [place] % (Auto) Lymph # [place] # Baso # Seg Neutrophils % Seg Neuts % (Manual) Lymphocytes % (Manual) Monocytes % (Manual) Eosinophils % (Manual) Basophils % (Manual) Nucleated RBC % Seg Neutrophils # Seg Neutrophils # Man Lymphocytes # (Manual) Monocytes # (Manual) Eosinophils # (Manual) PT INR Fibrinogen dRVVT Confirm Interp Factor V Activity POC ABG pH POC ABG pCO2 POC ABG pO2 Sodium Potassium Chloride Carbon Dioxide BUN Creatinine Glucose POC Glucose 125 H Lactic Acid Calcium Phosphorus Magnesium Direct Bilirubin AST ALT Alkaline Phosphatase Lactate Dehydrogenase Troponin T C-Reactive Protein Total Protein Albumin Prealbumin Triglycerides Cholesterol LDL Cholesterol Direct HDL Cholesterol Urine pH Urine WBC (Auto) Urine Creatinine Urine Total Protein Vancomycin Trough Rheumatoid Factor Complement C4 Miscellaneous Test Crossmatch See Detail 10/25/16 10/25/16 10/25/16 04:00 04:00 04:00 WBC 14.2 H RBC 2.98 L Hgb 9.0 L Hct 26.2 L MCV MCH MCHC RDW 16.6 H Plt Count Lymph % (Auto) [place] % (Auto) 10.7 H Lymph # [place] # 1.5 H Baso # Seg Neutrophils % 73.6 H Seg Neuts % (Manual) Lymphocytes % (Manual) Monocytes % (Manual) Eosinophils % (Manual) Basophils % (Manual) Nucleated RBC % Seg Neutrophils # 10.5 H Seg Neutrophils # Man Lymphocytes # (Manual) Monocytes # (Manual) Eosinophils # (Manual) PT INR Fibrinogen dRVVT Confirm Interp Factor V Activity POC ABG pH POC ABG pCO2 POC ABG pO2 Sodium 132 L Potassium Chloride 94.7 L Carbon Dioxide BUN 51 H Creatinine 1.6 H Glucose 130 H POC Glucose Lactic Acid Calcium 8.3 L Phosphorus 1.60 L D Magnesium Direct Bilirubin AST ALT Alkaline Phosphatase Lactate Dehydrogenase Troponin T C-Reactive Protein Total Protein Albumin Prealbumin Triglycerides Cholesterol LDL Cholesterol Direct HDL Cholesterol Urine pH Urine WBC (Auto) Urine Creatinine Urine Total Protein Vancomycin Trough Rheumatoid Factor Complement C4 Miscellaneous Test Crossmatch 10/25/16 10/25/16 10/25/16 04:32 11:48 17:22 WBC RBC Hgb Hct MCV MCH MCHC RDW Plt Count Lymph % (Auto) [place] % (Auto) Lymph # [place] # Baso # Seg Neutrophils % Seg Neuts % (Manual) Lymphocytes % (Manual) Monocytes % (Manual) Eosinophils % (Manual) Basophils % (Manual) Nucleated RBC % Seg Neutrophils # Seg Neutrophils # Man Lymphocytes # (Manual) Monocytes # (Manual) Eosinophils # (Manual) PT INR Fibrinogen dRVVT Confirm Interp Factor V Activity POC ABG pH POC ABG pCO2 POC ABG pO2 Sodium Potassium Chloride Carbon Dioxide BUN Creatinine Glucose POC Glucose 124 H 171 H 120 H Lactic Acid Calcium Phosphorus Magnesium Direct Bilirubin AST ALT Alkaline Phosphatase Lactate Dehydrogenase Troponin T C-Reactive Protein Total Protein Albumin Prealbumin Triglycerides Cholesterol LDL Cholesterol Direct HDL Cholesterol Urine pH Urine WBC (Auto) Urine Creatinine Urine Total Protein Vancomycin Trough Rheumatoid Factor Complement C4 Miscellaneous Test Crossmatch 10/26/16 10/26/16 10/26/16 04:54 07:06 07:06 WBC 16.9 H RBC 3.06 L Hgb 9.1 L Hct 26.9 L MCV MCH MCHC RDW 16.9 H Plt Count Lymph % (Auto) [place] % (Auto) Lymph # [place] # Baso # Seg Neutrophils % Seg Neuts % (Manual) 71.0 H Lymphocytes % (Manual) 5.0 L Monocytes % (Manual) 12.0 H Eosinophils % (Manual) Basophils % (Manual) Nucleated RBC % Seg Neutrophils # Seg Neutrophils # Man 12.0 H Lymphocytes # (Manual) 0.8 L Monocytes # (Manual) 2.0 H Eosinophils # (Manual) PT INR Fibrinogen dRVVT Confirm Interp Factor V Activity POC ABG pH POC ABG pCO2 POC ABG pO2 Sodium 135 L Potassium Chloride 97.1 L Carbon Dioxide BUN 73 H Creatinine 2.2 H Glucose 117 H POC Glucose 123 H Lactic Acid Calcium Phosphorus 1.70 L Magnesium Direct Bilirubin AST ALT Alkaline Phosphatase Lactate Dehydrogenase Troponin T C-Reactive Protein Total Protein Albumin Prealbumin Triglycerides Cholesterol LDL Cholesterol Direct HDL Cholesterol Urine pH Urine WBC (Auto) Urine Creatinine Urine Total Protein Vancomycin Trough Rheumatoid Factor Complement C4 Miscellaneous Test Crossmatch 10/26/16 10/26/16 10/26/16 12:12 17:29 23:42 WBC RBC Hgb Hct MCV MCH MCHC RDW Plt Count Lymph % (Auto) [place] % (Auto) Lymph # [place] # Baso # Seg Neutrophils % Seg Neuts % (Manual) Lymphocytes % (Manual) Monocytes % (Manual) Eosinophils % (Manual) Basophils % (Manual) Nucleated RBC % Seg Neutrophils # Seg Neutrophils # Man Lymphocytes # (Manual) Monocytes # (Manual) Eosinophils # (Manual) PT INR Fibrinogen dRVVT Confirm Interp Factor V Activity POC ABG pH POC ABG pCO2 POC ABG pO2 Sodium Potassium Chloride Carbon Dioxide BUN Creatinine Glucose POC Glucose 126 H 161 H 118 H Lactic Acid Calcium Phosphorus Magnesium Direct Bilirubin AST ALT Alkaline Phosphatase Lactate Dehydrogenase Troponin T C-Reactive Protein Total Protein Albumin Prealbumin Triglycerides Cholesterol LDL Cholesterol Direct HDL Cholesterol Urine pH Urine WBC (Auto) Urine Creatinine Urine Total Protein Vancomycin Trough Rheumatoid Factor Complement C4 Miscellaneous Test Crossmatch 10/27/16 10/27/16 10/27/16 05:03 06:30 06:30 WBC 13.9 H RBC 3.09 L Hgb 9.2 L Hct 27.5 L MCV MCH MCHC RDW 17.0 H Plt Count Lymph % (Auto) [place] % (Auto) Lymph # [place] # Baso # Seg Neutrophils % Seg Neuts % (Manual) 78.0 H Lymphocytes % (Manual) Monocytes % (Manual) Eosinophils % (Manual) Basophils % (Manual) Nucleated RBC % 2.0 H Seg Neutrophils # Seg Neutrophils # Man 10.8 H Lymphocytes # (Manual) Monocytes # (Manual) 1.0 H Eosinophils # (Manual) PT INR Fibrinogen dRVVT Confirm Interp Factor V Activity POC ABG pH POC ABG pCO2 POC ABG pO2 Sodium Potassium Chloride Carbon Dioxide BUN 40 H Creatinine 1.5 H Glucose 135 H POC Glucose 107 H Lactic Acid Calcium 8.3 L Phosphorus 1.30 L D Magnesium Direct Bilirubin AST ALT Alkaline Phosphatase Lactate Dehydrogenase Troponin T C-Reactive Protein Total Protein Albumin Prealbumin Triglycerides Cholesterol LDL Cholesterol Direct HDL Cholesterol Urine pH Urine WBC (Auto) Urine Creatinine Urine Total Protein Vancomycin Trough Rheumatoid Factor Complement C4 Miscellaneous Test Crossmatch 10/27/16 10/27/16 10/27/16 13:27 18:07 23:40 WBC RBC Hgb Hct MCV MCH MCHC RDW Plt Count Lymph % (Auto) [place] % (Auto) Lymph # [place] # Baso # Seg Neutrophils % Seg Neuts % (Manual) Lymphocytes % (Manual) Monocytes % (Manual) Eosinophils % (Manual) Basophils % (Manual) Nucleated RBC % Seg Neutrophils # Seg Neutrophils # Man Lymphocytes # (Manual) Monocytes # (Manual) Eosinophils # (Manual) PT INR Fibrinogen dRVVT Confirm Interp Factor V Activity POC ABG pH POC ABG pCO2 POC ABG pO2 Sodium Potassium Chloride Carbon Dioxide BUN Creatinine Glucose POC Glucose 117 H 121 H 118 H Lactic Acid Calcium Phosphorus Magnesium Direct Bilirubin AST ALT Alkaline Phosphatase Lactate Dehydrogenase Troponin T C-Reactive Protein Total Protein Albumin Prealbumin Triglycerides Cholesterol LDL Cholesterol Direct HDL Cholesterol Urine pH Urine WBC (Auto) Urine Creatinine Urine Total Protein Vancomycin Trough Rheumatoid Factor Complement C4 Miscellaneous Test Crossmatch 10/28/16 10/28/16 10/28/16 05:48 06:45 06:45 WBC 14.7 H RBC 3.05 L Hgb 9.0 L Hct 26.9 L MCV MCH MCHC RDW 16.8 H Plt Count Lymph % (Auto) 8.2 L [place] % (Auto) 8.4 H Lymph # [place] # 1.2 H Baso # Seg Neutrophils % 81.9 H Seg Neuts % (Manual) Lymphocytes % (Manual) Monocytes % (Manual) Eosinophils % (Manual) Basophils % (Manual) Nucleated RBC % Seg Neutrophils # 12.1 H Seg Neutrophils # Man Lymphocytes # (Manual) Monocytes # (Manual) Eosinophils # (Manual) PT INR Fibrinogen dRVVT Confirm Interp Factor V Activity POC ABG pH POC ABG pCO2 POC ABG pO2 Sodium Potassium Chloride Carbon Dioxide BUN 60 H Creatinine 1.9 H Glucose 120 H POC Glucose 114 H Lactic Acid Calcium Phosphorus Magnesium Direct Bilirubin AST ALT Alkaline Phosphatase Lactate Dehydrogenase Troponin T C-Reactive Protein Total Protein Albumin Prealbumin Triglycerides Cholesterol LDL Cholesterol Direct HDL Cholesterol Urine pH Urine WBC (Auto) Urine Creatinine Urine Total Protein Vancomycin Trough Rheumatoid Factor Complement C4 Miscellaneous Test Crossmatch 10/28/16 10/28/16 10/29/16 17:08 23:50 05:10 WBC RBC Hgb Hct MCV MCH MCHC RDW Plt Count Lymph % (Auto) [place] % (Auto) Lymph # [place] # Baso # Seg Neutrophils % Seg Neuts % (Manual) Lymphocytes % (Manual) Monocytes % (Manual) Eosinophils % (Manual) Basophils % (Manual) Nucleated RBC % Seg Neutrophils # Seg Neutrophils # Man Lymphocytes # (Manual) Monocytes # (Manual) Eosinophils # (Manual) PT INR Fibrinogen dRVVT Confirm Interp Factor V Activity POC ABG pH POC ABG pCO2 POC ABG pO2 Sodium Potassium Chloride Carbon Dioxide BUN Creatinine Glucose POC Glucose 109 H 110 H 124 H Lactic Acid Calcium Phosphorus Magnesium Direct Bilirubin AST ALT Alkaline Phosphatase Lactate Dehydrogenase Troponin T C-Reactive Protein Total Protein Albumin Prealbumin Triglycerides Cholesterol LDL Cholesterol Direct HDL Cholesterol Urine pH Urine WBC (Auto) Urine Creatinine Urine Total Protein Vancomycin Trough Rheumatoid Factor Complement C4 Miscellaneous Test Crossmatch 10/29/16 10/29/16 10/29/16 07:45 07:45 12:19 WBC 14.7 H RBC 3.15 L Hgb 9.3 L Hct 28.9 L MCV MCH MCHC RDW 17.0 H Plt Count Lymph % (Auto) 11.9 L [place] % (Auto) 8.6 H Lymph # [place] # 1.3 H Baso # Seg Neutrophils % 78.1 H Seg Neuts % (Manual) Lymphocytes % (Manual) Monocytes % (Manual) Eosinophils % (Manual) Basophils % (Manual) Nucleated RBC % Seg Neutrophils # 11.4 H Seg Neutrophils # Man Lymphocytes # (Manual) Monocytes # (Manual) Eosinophils # (Manual) PT INR Fibrinogen dRVVT Confirm Interp Factor V Activity POC ABG pH POC ABG pCO2 POC ABG pO2 Sodium Potassium 5.1 H Chloride Carbon Dioxide 19 L BUN 78 H Creatinine 2.2 H Glucose 116 H POC Glucose 118 H Lactic Acid Calcium Phosphorus Magnesium Direct Bilirubin AST ALT Alkaline Phosphatase Lactate Dehydrogenase Troponin T C-Reactive Protein Total Protein Albumin Prealbumin Triglycerides Cholesterol LDL Cholesterol Direct HDL Cholesterol Urine pH Urine WBC (Auto) Urine Creatinine Urine Total Protein Vancomycin Trough Rheumatoid Factor Complement C4 Miscellaneous Test Crossmatch 10/29/16 10/30/16 10/30/16 17:49 01:52 03:28 WBC RBC Hgb Hct MCV MCH MCHC RDW Plt Count Lymph % (Auto) [place] % (Auto) Lymph # [place] # Baso # Seg Neutrophils % Seg Neuts % (Manual) Lymphocytes % (Manual) Monocytes % (Manual) Eosinophils % (Manual) Basophils % (Manual) Nucleated RBC % Seg Neutrophils # Seg Neutrophils # Man Lymphocytes # (Manual) Monocytes # (Manual) Eosinophils # (Manual) PT INR Fibrinogen dRVVT Confirm Interp Factor V Activity POC ABG pH POC ABG pCO2 POC ABG pO2 Sodium Potassium 5.4 H Chloride 97.5 L Carbon Dioxide 19 L BUN 90 H Creatinine 2.5 H Glucose POC Glucose 120 H 129 H Lactic Acid Calcium Phosphorus 5.20 H Magnesium Direct Bilirubin AST ALT Alkaline Phosphatase Lactate Dehydrogenase Troponin T C-Reactive Protein Total Protein Albumin Prealbumin Triglycerides Cholesterol LDL Cholesterol Direct HDL Cholesterol Urine pH Urine WBC (Auto) Urine Creatinine Urine Total Protein Vancomycin Trough Rheumatoid Factor Complement C4 Miscellaneous Test Crossmatch 10/30/16 10/30/16 10/30/16 03:28 08:19 08:19 WBC 11.6 H 15.9 H RBC 2.75 L 2.82 L Hgb 7.9 L 8.3 L Hct 24.2 L 25.2 L MCV MCH MCHC RDW 16.7 H 17.2 H Plt Count Lymph % (Auto) [place] % (Auto) 9.8 H Lymph # [place] # 1.1 H Baso # Seg Neutrophils % 74.2 H Seg Neuts % (Manual) Lymphocytes % (Manual) Monocytes % (Manual) Eosinophils % (Manual) Basophils % (Manual) Nucleated RBC % Seg Neutrophils # 8.6 H Seg Neutrophils # Man Lymphocytes # (Manual) Monocytes # (Manual) Eosinophils # (Manual) PT INR Fibrinogen dRVVT Confirm Interp Factor V Activity POC ABG pH POC ABG pCO2 POC ABG pO2 Sodium Potassium 5.3 H Chloride 97.4 L Carbon Dioxide 19 L BUN 93 H Creatinine 2.6 H Glucose POC Glucose Lactic Acid Calcium Phosphorus Magnesium Direct Bilirubin AST ALT Alkaline Phosphatase Lactate Dehydrogenase Troponin T C-Reactive Protein Total Protein Albumin Prealbumin Triglycerides Cholesterol LDL Cholesterol Direct HDL Cholesterol Urine pH Urine WBC (Auto) Urine Creatinine Urine Total Protein Vancomycin Trough Rheumatoid Factor Complement C4 Miscellaneous Test Crossmatch 10/30/16 10/30/16 10/31/16 17:11 23:56 00:40 WBC RBC Hgb Hct MCV MCH MCHC RDW Plt Count Lymph % (Auto) [place] % (Auto) Lymph # [place] # Baso # Seg Neutrophils % Seg Neuts % (Manual) Lymphocytes % (Manual) Monocytes % (Manual) Eosinophils % (Manual) Basophils % (Manual) Nucleated RBC % Seg Neutrophils # Seg Neutrophils # Man Lymphocytes # (Manual) Monocytes # (Manual) Eosinophils # (Manual) PT INR Fibrinogen dRVVT Confirm Interp Factor V Activity POC ABG pH POC ABG pCO2 POC ABG pO2 Sodium Potassium Chloride Carbon Dioxide BUN Creatinine Glucose POC Glucose 106 H 117 H 120 H Lactic Acid Calcium Phosphorus Magnesium Direct Bilirubin AST ALT Alkaline Phosphatase Lactate Dehydrogenase Troponin T C-Reactive Protein Total Protein Albumin Prealbumin Triglycerides Cholesterol LDL Cholesterol Direct HDL Cholesterol Urine pH Urine WBC (Auto) Urine Creatinine Urine Total Protein Vancomycin Trough Rheumatoid Factor Complement C4 Miscellaneous Test Crossmatch 10/31/16 10/31/16 10/31/16 05:43 07:15 07:15 WBC 12.1 H RBC 2.63 L Hgb 7.7 L Hct 23.3 L MCV MCH MCHC RDW 16.7 H Plt Count Lymph % (Auto) 11.7 L [place] % (Auto) 7.7 H Lymph # [place] # 0.9 H Baso # Seg Neutrophils % 78.0 H Seg Neuts % (Manual) Lymphocytes % (Manual) Monocytes % (Manual) Eosinophils % (Manual) Basophils % (Manual) Nucleated RBC % Seg Neutrophils # 9.4 H Seg Neutrophils # Man Lymphocytes # (Manual) Monocytes # (Manual) Eosinophils # (Manual) PT INR Fibrinogen dRVVT Confirm Interp Factor V Activity POC ABG pH POC ABG pCO2 POC ABG pO2 Sodium Potassium Chloride 96.4 L Carbon Dioxide 21 L BUN 99 H Creatinine 2.6 H Glucose 144 H POC Glucose 125 H Lactic Acid Calcium Phosphorus 4.80 H Magnesium Direct Bilirubin AST ALT Alkaline Phosphatase Lactate Dehydrogenase Troponin T C-Reactive Protein Total Protein Albumin Prealbumin Triglycerides Cholesterol LDL Cholesterol Direct HDL Cholesterol Urine pH Urine WBC (Auto) Urine Creatinine Urine Total Protein Vancomycin Trough Rheumatoid Factor Complement C4 Miscellaneous Test Crossmatch 10/31/16 10/31/16 11/01/16 11:46 18:34 00:20 WBC RBC Hgb Hct MCV MCH MCHC RDW Plt Count Lymph % (Auto) [place] % (Auto) Lymph # [place] # Baso # Seg Neutrophils % Seg Neuts % (Manual) Lymphocytes % (Manual) Monocytes % (Manual) Eosinophils % (Manual) Basophils % (Manual) Nucleated RBC % Seg Neutrophils # Seg Neutrophils # Man Lymphocytes # (Manual) Monocytes # (Manual) Eosinophils # (Manual) PT INR Fibrinogen dRVVT Confirm Interp Factor V Activity POC ABG pH POC ABG pCO2 POC ABG pO2 Sodium Potassium Chloride Carbon Dioxide BUN Creatinine Glucose POC Glucose 159 H 140 H 132 H Lactic Acid Calcium Phosphorus Magnesium Direct Bilirubin AST ALT Alkaline Phosphatase Lactate Dehydrogenase Troponin T C-Reactive Protein Total Protein Albumin Prealbumin Triglycerides Cholesterol LDL Cholesterol Direct HDL Cholesterol Urine pH Urine WBC (Auto) Urine Creatinine Urine Total Protein Vancomycin Trough Rheumatoid Factor Complement C4 Miscellaneous Test Crossmatch 11/01/16 11/01/16 11/01/16 04:55 04:55 06:11 WBC 11.2 H RBC 2.68 L Hgb 7.5 L Hct 23.7 L MCV MCH MCHC RDW 16.1 H Plt Count Lymph % (Auto) [place] % (Auto) 9.8 H Lymph # [place] # 1.1 H Baso # Seg Neutrophils % 70.8 H Seg Neuts % (Manual) Lymphocytes % (Manual) Monocytes % (Manual) Eosinophils % (Manual) Basophils % (Manual) Nucleated RBC % Seg Neutrophils # 7.9 H Seg Neutrophils # Man Lymphocytes # (Manual) Monocytes # (Manual) Eosinophils # (Manual) PT INR Fibrinogen dRVVT Confirm Interp Factor V Activity POC ABG pH POC ABG pCO2 POC ABG pO2 Sodium Potassium 3.3 L D Chloride Carbon Dioxide BUN 61 H Creatinine 1.9 H Glucose 114 H POC Glucose 115 H Lactic Acid Calcium Phosphorus 1.80 L D Magnesium Direct Bilirubin AST ALT Alkaline Phosphatase Lactate Dehydrogenase Troponin T C-Reactive Protein Total Protein Albumin Prealbumin Triglycerides Cholesterol LDL Cholesterol Direct HDL Cholesterol Urine pH Urine WBC (Auto) Urine Creatinine Urine Total Protein Vancomycin Trough Rheumatoid Factor Complement C4 Miscellaneous Test Crossmatch 11/01/16 11/01/16 11/01/16 12:29 18:23 23:58 WBC RBC Hgb Hct MCV MCH MCHC RDW Plt Count Lymph % (Auto) [place] % (Auto) Lymph # [place] # Baso # Seg Neutrophils % Seg Neuts % (Manual) Lymphocytes % (Manual) Monocytes % (Manual) Eosinophils % (Manual) Basophils % (Manual) Nucleated RBC % Seg Neutrophils # Seg Neutrophils # Man Lymphocytes # (Manual) Monocytes # (Manual) Eosinophils # (Manual) PT INR Fibrinogen dRVVT Confirm Interp Factor V Activity POC ABG pH POC ABG pCO2 POC ABG pO2 Sodium Potassium Chloride Carbon Dioxide BUN Creatinine Glucose POC Glucose 142 H 143 H 128 H Lactic Acid Calcium Phosphorus Magnesium Direct Bilirubin AST ALT Alkaline Phosphatase Lactate Dehydrogenase Troponin T C-Reactive Protein Total Protein Albumin Prealbumin Triglycerides Cholesterol LDL Cholesterol Direct HDL Cholesterol Urine pH Urine WBC (Auto) Urine Creatinine Urine Total Protein Vancomycin Trough Rheumatoid Factor Complement C4 Miscellaneous Test Crossmatch 11/02/16 11/02/16 11/02/16 04:16 05:29 11:58 WBC RBC Hgb Hct MCV MCH MCHC RDW Plt Count Lymph % (Auto) [place] % (Auto) Lymph # [place] # Baso # Seg Neutrophils % Seg Neuts % (Manual) Lymphocytes % (Manual) Monocytes % (Manual) Eosinophils % (Manual) Basophils % (Manual) Nucleated RBC % Seg Neutrophils # Seg Neutrophils # Man Lymphocytes # (Manual) Monocytes # (Manual) Eosinophils # (Manual) PT INR Fibrinogen dRVVT Confirm Interp Factor V Activity POC ABG pH POC ABG pCO2 POC ABG pO2 Sodium Potassium 3.1 L Chloride Carbon Dioxide BUN 73 H Creatinine 2.3 H Glucose 112 H POC Glucose 135 H 149 H Lactic Acid Calcium Phosphorus Magnesium Direct Bilirubin AST ALT Alkaline Phosphatase Lactate Dehydrogenase Troponin T C-Reactive Protein Total Protein Albumin Prealbumin Triglycerides Cholesterol LDL Cholesterol Direct HDL Cholesterol Urine pH Urine WBC (Auto) Urine Creatinine Urine Total Protein Vancomycin Trough Rheumatoid Factor Complement C4 Miscellaneous Test Crossmatch 11/02/16 11/02/16 11/03/16 17:42 22:54 06:00 WBC RBC Hgb Hct MCV MCH MCHC RDW Plt Count Lymph % (Auto) [place] % (Auto) Lymph # [place] # Baso # Seg Neutrophils % Seg Neuts % (Manual) Lymphocytes % (Manual) Monocytes % (Manual) Eosinophils % (Manual) Basophils % (Manual) Nucleated RBC % Seg Neutrophils # Seg Neutrophils # Man Lymphocytes # (Manual) Monocytes # (Manual) Eosinophils # (Manual) PT INR Fibrinogen dRVVT Confirm Interp Factor V Activity POC ABG pH POC ABG pCO2 POC ABG pO2 Sodium Potassium Chloride 96.7 L Carbon Dioxide BUN 41 H Creatinine 1.5 H Glucose 145 H POC Glucose 182 H 115 H Lactic Acid Calcium Phosphorus 1.60 L D Magnesium 1.50 L Direct Bilirubin AST ALT Alkaline Phosphatase Lactate Dehydrogenase Troponin T C-Reactive Protein Total Protein Albumin Prealbumin Triglycerides Cholesterol LDL Cholesterol Direct HDL Cholesterol Urine pH Urine WBC (Auto) Urine Creatinine Urine Total Protein Vancomycin Trough Rheumatoid Factor Complement C4 Miscellaneous Test Crossmatch 11/03/16 11/03/16 11/03/16 11:53 17:45 23:37 WBC RBC Hgb Hct MCV MCH MCHC RDW Plt Count Lymph % (Auto) [place] % (Auto) Lymph # [place] # Baso # Seg Neutrophils % Seg Neuts % (Manual) Lymphocytes % (Manual) Monocytes % (Manual) Eosinophils % (Manual) Basophils % (Manual) Nucleated RBC % Seg Neutrophils # Seg Neutrophils # Man Lymphocytes # (Manual) Monocytes # (Manual) Eosinophils # (Manual) PT INR Fibrinogen dRVVT Confirm Interp Factor V Activity POC ABG pH POC ABG pCO2 POC ABG pO2 Sodium Potassium Chloride Carbon Dioxide BUN Creatinine Glucose POC Glucose 131 H 134 H 113 H Lactic Acid Calcium Phosphorus Magnesium Direct Bilirubin AST ALT Alkaline Phosphatase Lactate Dehydrogenase Troponin T C-Reactive Protein Total Protein Albumin Prealbumin Triglycerides Cholesterol LDL Cholesterol Direct HDL Cholesterol Urine pH Urine WBC (Auto) Urine Creatinine Urine Total Protein Vancomycin Trough Rheumatoid Factor Complement C4 Miscellaneous Test Crossmatch 11/04/16 11/04/16 11/04/16 05:41 06:00 12:10 WBC RBC Hgb Hct MCV MCH MCHC RDW Plt Count Lymph % (Auto) [place] % (Auto) Lymph # [place] # Baso # Seg Neutrophils % Seg Neuts % (Manual) Lymphocytes % (Manual) Monocytes % (Manual) Eosinophils % (Manual) Basophils % (Manual) Nucleated RBC % Seg Neutrophils # Seg Neutrophils # Man Lymphocytes # (Manual) Monocytes # (Manual) Eosinophils # (Manual) PT INR Fibrinogen dRVVT Confirm Interp Factor V Activity POC ABG pH POC ABG pCO2 POC ABG pO2 Sodium Potassium Chloride 96.7 L Carbon Dioxide BUN 52 H Creatinine 1.9 H Glucose 126 H POC Glucose 137 H 191 H Lactic Acid Calcium Phosphorus Magnesium Direct Bilirubin AST ALT Alkaline Phosphatase Lactate Dehydrogenase Troponin T C-Reactive Protein Total Protein Albumin Prealbumin Triglycerides Cholesterol LDL Cholesterol Direct HDL Cholesterol Urine pH Urine WBC (Auto) Urine Creatinine Urine Total Protein Vancomycin Trough Rheumatoid Factor Complement C4 Miscellaneous Test Crossmatch 11/04/16 11/05/16 11/05/16 22:57 03:10 05:10 WBC RBC Hgb Hct MCV MCH MCHC RDW Plt Count Lymph % (Auto) [place] % (Auto) Lymph # [place] # Baso # Seg Neutrophils % Seg Neuts % (Manual) Lymphocytes % (Manual) Monocytes % (Manual) Eosinophils % (Manual) Basophils % (Manual) Nucleated RBC % Seg Neutrophils # Seg Neutrophils # Man Lymphocytes # (Manual) Monocytes # (Manual) Eosinophils # (Manual) PT INR Fibrinogen dRVVT Confirm Interp Factor V Activity POC ABG pH POC ABG pCO2 POC ABG pO2 Sodium 136 L Potassium Chloride 97.2 L Carbon Dioxide BUN 32 H Creatinine 1.3 H Glucose 123 H POC Glucose 125 H 108 H Lactic Acid Calcium 7.8 L Phosphorus Magnesium Direct Bilirubin AST ALT Alkaline Phosphatase Lactate Dehydrogenase Troponin T C-Reactive Protein Total Protein Albumin Prealbumin Triglycerides Cholesterol LDL Cholesterol Direct HDL Cholesterol Urine pH Urine WBC (Auto) Urine Creatinine Urine Total Protein Vancomycin Trough Rheumatoid Factor Complement C4 Miscellaneous Test Crossmatch 11/05/16 11/05/16 11/05/16 12:23 13:09 13:25 WBC RBC Hgb Hct MCV MCH MCHC RDW Plt Count Lymph % (Auto) [place] % (Auto) Lymph # [place] # Baso # Seg Neutrophils % Seg Neuts % (Manual) Lymphocytes % (Manual) Monocytes % (Manual) Eosinophils % (Manual) Basophils % (Manual) Nucleated RBC % Seg Neutrophils # Seg Neutrophils # Man Lymphocytes # (Manual) Monocytes # (Manual) Eosinophils # (Manual) PT INR Fibrinogen dRVVT Confirm Interp Factor V Activity POC ABG pH POC ABG pCO2 POC ABG pO2 Sodium Potassium Chloride Carbon Dioxide BUN Creatinine Glucose POC Glucose 124 H Lactic Acid Calcium Phosphorus Magnesium Direct Bilirubin AST ALT Alkaline Phosphatase Lactate Dehydrogenase Troponin T C-Reactive Protein 11.40 H Total Protein Albumin Prealbumin Triglycerides Cholesterol LDL Cholesterol Direct HDL Cholesterol Urine pH 9.0 H Urine WBC (Auto) Urine Creatinine Urine Total Protein Vancomycin Trough Rheumatoid Factor Complement C4 Miscellaneous Test Crossmatch 11/05/16 11/05/16 11/05/16 13:25 17:54 23:42 WBC RBC Hgb Hct MCV MCH MCHC RDW Plt Count Lymph % (Auto) [place] % (Auto) Lymph # [place] # Baso # Seg Neutrophils % Seg Neuts % (Manual) Lymphocytes % (Manual) Monocytes % (Manual) Eosinophils % (Manual) Basophils % (Manual) Nucleated RBC % Seg Neutrophils # Seg Neutrophils # Man Lymphocytes # (Manual) Monocytes # (Manual) Eosinophils # (Manual) PT INR Fibrinogen dRVVT Confirm Interp Factor V Activity POC ABG pH POC ABG pCO2 POC ABG pO2 Sodium Potassium Chloride Carbon Dioxide BUN Creatinine Glucose POC Glucose 114 H 134 H Lactic Acid Calcium Phosphorus Magnesium Direct Bilirubin AST ALT Alkaline Phosphatase Lactate Dehydrogenase Troponin T C-Reactive Protein Total Protein Albumin Prealbumin Triglycerides Cholesterol LDL Cholesterol Direct HDL Cholesterol Urine pH Urine WBC (Auto) Urine Creatinine Urine Total Protein Vancomycin Trough Rheumatoid Factor Complement C4 Miscellaneous Test Flexitest 1 H Crossmatch 11/06/16 11/06/16 11/06/16 04:56 06:25 06:25 WBC RBC 2.50 L Hgb 7.3 L Hct 22.5 L MCV MCH MCHC RDW 16.9 H Plt Count Lymph % (Auto) [place] % (Auto) 10.5 H Lymph # [place] # 1.1 H Baso # Seg Neutrophils % Seg Neuts % (Manual) Lymphocytes % (Manual) Monocytes % (Manual) Eosinophils % (Manual) Basophils % (Manual) Nucleated RBC % Seg Neutrophils # Seg Neutrophils # Man Lymphocytes # (Manual) Monocytes # (Manual) Eosinophils # (Manual) PT INR Fibrinogen dRVVT Confirm Interp Factor V Activity POC ABG pH POC ABG pCO2 POC ABG pO2 Sodium Potassium 5.1 H Chloride 95.9 L Carbon Dioxide BUN 52 H Creatinine 1.8 H Glucose 117 H POC Glucose 120 H Lactic Acid Calcium Phosphorus Magnesium Direct Bilirubin AST 103 H ALT 77 H Alkaline Phosphatase 285 H Lactate Dehydrogenase Troponin T C-Reactive Protein Total Protein 6.2 L Albumin 1.8 L Prealbumin 0.180 L Triglycerides Cholesterol LDL Cholesterol Direct HDL Cholesterol Urine pH Urine WBC (Auto) Urine Creatinine Urine Total Protein Vancomycin Trough Rheumatoid Factor Complement C4 Miscellaneous Test Crossmatch 11/06/16 11/06/16 11/06/16 11:56 17:14 23:52 WBC RBC Hgb Hct MCV MCH MCHC RDW Plt Count Lymph % (Auto) [place] % (Auto) Lymph # [place] # Baso # Seg Neutrophils % Seg Neuts % (Manual) Lymphocytes % (Manual) Monocytes % (Manual) Eosinophils % (Manual) Basophils % (Manual) Nucleated RBC % Seg Neutrophils # Seg Neutrophils # Man Lymphocytes # (Manual) Monocytes # (Manual) Eosinophils # (Manual) PT INR Fibrinogen dRVVT Confirm Interp Factor V Activity POC ABG pH POC ABG pCO2 POC ABG pO2 Sodium Potassium Chloride Carbon Dioxide BUN Creatinine Glucose POC Glucose 141 H 125 H 130 H Lactic Acid Calcium Phosphorus Magnesium Direct Bilirubin AST ALT Alkaline Phosphatase Lactate Dehydrogenase Troponin T C-Reactive Protein Total Protein Albumin Prealbumin Triglycerides Cholesterol LDL Cholesterol Direct HDL Cholesterol Urine pH Urine WBC (Auto) Urine Creatinine Urine Total Protein Vancomycin Trough Rheumatoid Factor Complement C4 Miscellaneous Test Crossmatch 11/07/16 11/07/16 11/07/16 06:30 06:30 09:37 WBC RBC 2.18 L Hgb 6.3 L Hct 19.7 L* MCV MCH MCHC RDW 16.8 H Plt Count Lymph % (Auto) [place] % (Auto) 10.0 H Lymph # [place] # 1.0 H Baso # Seg Neutrophils % Seg Neuts % (Manual) Lymphocytes % (Manual) Monocytes % (Manual) Eosinophils % (Manual) Basophils % (Manual) Nucleated RBC % Seg Neutrophils # Seg Neutrophils # Man Lymphocytes # (Manual) Monocytes # (Manual) Eosinophils # (Manual) PT INR Fibrinogen dRVVT Confirm Interp Factor V Activity POC ABG pH POC ABG pCO2 POC ABG pO2 Sodium 135 L Potassium Chloride 95.6 L Carbon Dioxide BUN 70 H Creatinine 2.0 H Glucose 126 H POC Glucose Lactic Acid Calcium Phosphorus Magnesium Direct Bilirubin AST ALT Alkaline Phosphatase Lactate Dehydrogenase Troponin T C-Reactive Protein Total Protein Albumin Prealbumin Triglycerides Cholesterol LDL Cholesterol Direct HDL Cholesterol Urine pH Urine WBC (Auto) Urine Creatinine Urine Total Protein Vancomycin Trough Rheumatoid Factor Complement C4 Miscellaneous Test Crossmatch See Detail 11/07/16 11/07/1611/07/17 12:52 18:51 21:26 WBC RBC Hgb Hct MCV MCH MCHC RDW Plt Count Lymph % (Auto) [place] % (Auto) Lymph # [place] # Baso # Seg Neutrophils % Seg Neuts % (Manual) Lymphocytes % (Manual) Monocytes % (Manual) Eosinophils % (Manual) Basophils % (Manual) Nucleated RBC % Seg Neutrophils # Seg Neutrophils # Man Lymphocytes # (Manual) Monocytes # (Manual) Eosinophils # (Manual) PT INR Fibrinogen dRVVT Confirm Interp Factor V Activity POC ABG pH 7.523 H POC ABG pCO2 34.6 L POC ABG pO2 53 L Sodium Potassium Chloride Carbon Dioxide BUN Creatinine Glucose POC Glucose 142 H 155 H Lactic Acid Calcium Phosphorus Magnesium Direct Bilirubin AST ALT Alkaline Phosphatase Lactate Dehydrogenase Troponin T C-Reactive Protein Total Protein Albumin Prealbumin Triglycerides Cholesterol LDL Cholesterol Direct HDL Cholesterol Urine pH Urine WBC (Auto) Urine Creatinine Urine Total Protein Vancomycin Trough Rheumatoid Factor Complement C4 Miscellaneous Test Crossmatch 11/07/16 11/08/16 11/08/16 21:34 13:03 23:37 WBC RBC 2.63 L Hgb 7.7 L Hct 22.7 L MCV MCH MCHC RDW 17.0 H Plt Count Lymph % (Auto) [place] % (Auto) Lymph # [place] # Baso # Seg Neutrophils % Seg Neuts % (Manual) Lymphocytes % (Manual) Monocytes % (Manual) Eosinophils % (Manual) Basophils % (Manual) Nucleated RBC % Seg Neutrophils # Seg Neutrophils # Man Lymphocytes # (Manual) Monocytes # (Manual) Eosinophils # (Manual) PT INR Fibrinogen dRVVT Confirm Interp Factor V Activity POC ABG pH 7.478 H POC ABG pCO2 34.0 L POC ABG pO2 50 L Sodium Potassium Chloride Carbon Dioxide BUN Creatinine Glucose POC Glucose 113 H Lactic Acid Calcium Phosphorus Magnesium Direct Bilirubin AST ALT Alkaline Phosphatase Lactate Dehydrogenase Troponin T C-Reactive Protein Total Protein Albumin Prealbumin Triglycerides Cholesterol LDL Cholesterol Direct HDL Cholesterol Urine pH Urine WBC (Auto) Urine Creatinine Urine Total Protein Vancomycin Trough Rheumatoid Factor Complement C4 Miscellaneous Test Crossmatch 11/09/16 11/09/16 11/09/16 04:35 10:15 18:21 WBC RBC 2.68 L Hgb 7.8 L Hct 23.3 L MCV MCH MCHC RDW 17.0 H Plt Count Lymph % (Auto) [place] % (Auto) 12.1 H Lymph # [place] # 1.1 H Baso # Seg Neutrophils % Seg Neuts % (Manual) Lymphocytes % (Manual) Monocytes % (Manual) Eosinophils % (Manual) Basophils % (Manual) Nucleated RBC % Seg Neutrophils # Seg Neutrophils # Man Lymphocytes # (Manual) Monocytes # (Manual) Eosinophils # (Manual) PT INR Fibrinogen dRVVT Confirm Interp Factor V Activity POC ABG pH POC ABG pCO2 POC ABG pO2 Sodium Potassium Chloride Carbon Dioxide BUN 51 H Creatinine 1.8 H Glucose POC Glucose 60 L Lactic Acid Calcium 8.3 L Phosphorus Magnesium Direct Bilirubin AST ALT Alkaline Phosphatase Lactate Dehydrogenase Troponin T C-Reactive Protein Total Protein Albumin Prealbumin Triglycerides Cholesterol LDL Cholesterol Direct HDL Cholesterol Urine pH Urine WBC (Auto) Urine Creatinine Urine Total Protein Vancomycin Trough Rheumatoid Factor Complement C4 Miscellaneous Test Crossmatch 11/09/16 11/10/16 11/10/16 18:55 07:00 11:51 WBC RBC Hgb Hct MCV MCH MCHC RDW Plt Count Lymph % (Auto) [place] % (Auto) Lymph # [place] # Baso # Seg Neutrophils % Seg Neuts % (Manual) Lymphocytes % (Manual) Monocytes % (Manual) Eosinophils % (Manual) Basophils % (Manual) Nucleated RBC % Seg Neutrophils # Seg Neutrophils # Man Lymphocytes # (Manual) Monocytes # (Manual) Eosinophils # (Manual) PT INR Fibrinogen dRVVT Confirm Interp Factor V Activity POC ABG pH POC ABG pCO2 POC ABG pO2 Sodium Potassium 3.0 L D Chloride 97.4 L Carbon Dioxide BUN 28 H Creatinine 1.3 H Glucose POC Glucose 68 L 120 H Lactic Acid Calcium 7.8 L Phosphorus Magnesium Direct Bilirubin AST ALT Alkaline Phosphatase Lactate Dehydrogenase Troponin T C-Reactive Protein Total Protein Albumin Prealbumin Triglycerides Cholesterol LDL Cholesterol Direct HDL Cholesterol Urine pH Urine WBC (Auto) Urine Creatinine Urine Total Protein Vancomycin Trough Rheumatoid Factor Complement C4 Miscellaneous Test Crossmatch 11/11/16 11/11/16 11/11/16 06:59 06:59 06:59 WBC RBC 2.81 L Hgb 8.1 L Hct 24.4 L MCV MCH MCHC RDW 16.4 H Plt Count Lymph % (Auto) [place] % (Auto) 10.8 H Lymph # [place] # 1.0 H Baso # Seg Neutrophils % Seg Neuts % (Manual) Lymphocytes % (Manual) Monocytes % (Manual) Eosinophils % (Manual) Basophils % (Manual) Nucleated RBC % Seg Neutrophils # Seg Neutrophils # Man Lymphocytes # (Manual) Monocytes # (Manual) Eosinophils # (Manual) PT INR Fibrinogen dRVVT Confirm Interp Factor V Activity POC ABG pH POC ABG pCO2 POC ABG pO2 Sodium 136 L Potassium Chloride 96.1 L Carbon Dioxide BUN 37 H Creatinine 1.8 H Glucose POC Glucose Lactic Acid Calcium Phosphorus Magnesium Direct Bilirubin AST ALT Alkaline Phosphatase Lactate Dehydrogenase 196 H Troponin T C-Reactive Protein Total Protein 6.1 L Albumin Prealbumin Triglycerides Cholesterol LDL Cholesterol Direct HDL Cholesterol Urine pH Urine WBC (Auto) Urine Creatinine Urine Total Protein Vancomycin Trough Rheumatoid Factor Complement C4 Miscellaneous Test Crossmatch 11/11/16 11/12/16 11/12/16 09:50 04:00 04:00 WBC RBC Hgb 8.9 L Hct 27.2 L MCV MCH MCHC RDW Plt Count Lymph % (Auto) [place] % (Auto) Lymph # [place] # Baso # Seg Neutrophils % Seg Neuts % (Manual) Lymphocytes % (Manual) Monocytes % (Manual) Eosinophils % (Manual) Basophils % (Manual) Nucleated RBC % Seg Neutrophils # Seg Neutrophils # Man Lymphocytes # (Manual) Monocytes # (Manual) Eosinophils # (Manual) PT INR 1.18 H Fibrinogen dRVVT Confirm Interp Factor V Activity POC ABG pH POC ABG pCO2 POC ABG pO2 Sodium 133 L Potassium Chloride 94.8 L Carbon Dioxide 21 L BUN 42 H Creatinine 2.0 H Glucose POC Glucose Lactic Acid Calcium Phosphorus Magnesium Direct Bilirubin AST ALT Alkaline Phosphatase Lactate Dehydrogenase Troponin T C-Reactive Protein Total Protein Albumin Prealbumin Triglycerides Cholesterol LDL Cholesterol Direct HDL Cholesterol Urine pH Urine WBC (Auto) Urine Creatinine Urine Total Protein Vancomycin Trough Rheumatoid Factor Complement C4 Miscellaneous Test Crossmatch 11/12/16 11/13/16 11/13/16 23:55 05:53 11:43 WBC RBC Hgb Hct MCV MCH MCHC RDW Plt Count Lymph % (Auto) [place] % (Auto) Lymph # [place] # Baso # Seg Neutrophils % Seg Neuts % (Manual) Lymphocytes % (Manual) Monocytes % (Manual) Eosinophils % (Manual) Basophils % (Manual) Nucleated RBC % Seg Neutrophils # Seg Neutrophils # Man Lymphocytes # (Manual) Monocytes # (Manual) Eosinophils # (Manual) PT INR Fibrinogen dRVVT Confirm Interp Factor V Activity POC ABG pH POC ABG pCO2 POC ABG pO2 Sodium Potassium Chloride Carbon Dioxide BUN Creatinine Glucose POC Glucose 132 H 120 H 114 H Lactic Acid Calcium Phosphorus Magnesium Direct Bilirubin AST ALT Alkaline Phosphatase Lactate Dehydrogenase Troponin T C-Reactive Protein Total Protein Albumin Prealbumin Triglycerides Cholesterol LDL Cholesterol Direct HDL Cholesterol Urine pH Urine WBC (Auto) Urine Creatinine Urine Total Protein Vancomycin Trough Rheumatoid Factor Complement C4 Miscellaneous Test Crossmatch 11/13/16 11/13/16 11/13/16 17:09 23:41 Unknown WBC RBC Hgb Hct MCV MCH MCHC RDW Plt Count Lymph % (Auto) [place] % (Auto) Lymph # [place] # Baso # Seg Neutrophils % Seg Neuts % (Manual) Lymphocytes % (Manual) Monocytes % (Manual) Eosinophils % (Manual) Basophils % (Manual) Nucleated RBC % Seg Neutrophils # Seg Neutrophils # Man Lymphocytes # (Manual) Monocytes # (Manual) Eosinophils # (Manual) PT INR Fibrinogen dRVVT Confirm Interp Factor V Activity POC ABG pH POC ABG pCO2 POC ABG pO2 Sodium 135 L Potassium Chloride 95.2 L Carbon Dioxide BUN 52 H Creatinine 2.2 H Glucose POC Glucose 113 H 108 H Lactic Acid Calcium Phosphorus Magnesium Direct Bilirubin AST ALT Alkaline Phosphatase Lactate Dehydrogenase Troponin T C-Reactive Protein Total Protein Albumin Prealbumin Triglycerides Cholesterol LDL Cholesterol Direct HDL Cholesterol Urine pH Urine WBC (Auto) Urine Creatinine Urine Total Protein Vancomycin Trough Rheumatoid Factor Complement C4 Miscellaneous Test Crossmatch 11/15/16 11/15/16 11/15/16 00:37 03:30 03:30 WBC 11.2 H RBC 2.72 L Hgb 7.6 L Hct 23.4 L MCV MCH MCHC RDW 16.5 H Plt Count Lymph % (Auto) [place] % (Auto) Lymph # [place] # Baso # Seg Neutrophils % Seg Neuts % (Manual) Lymphocytes % (Manual) Monocytes % (Manual) Eosinophils % (Manual) Basophils % (Manual) Nucleated RBC % Seg Neutrophils # Seg Neutrophils # Man Lymphocytes # (Manual) Monocytes # (Manual) Eosinophils # (Manual) PT INR Fibrinogen dRVVT Confirm Interp Factor V Activity POC ABG pH POC ABG pCO2 POC ABG pO2 Sodium Potassium 3.4 L Chloride Carbon Dioxide BUN 25 H Creatinine 1.5 H Glucose 103 H POC Glucose 108 H Lactic Acid Calcium Phosphorus Magnesium Direct Bilirubin AST ALT Alkaline Phosphatase Lactate Dehydrogenase Troponin T C-Reactive Protein Total Protein Albumin Prealbumin Triglycerides Cholesterol LDL Cholesterol Direct HDL Cholesterol Urine pH Urine WBC (Auto) Urine Creatinine Urine Total Protein Vancomycin Trough Rheumatoid Factor Complement C4 Miscellaneous Test Crossmatch 11/15/16 05:04 WBC RBC Hgb Hct MCV MCH MCHC RDW Plt Count Lymph % (Auto) [place] % (Auto) Lymph # [place] # Baso # Seg Neutrophils % Seg Neuts % (Manual) Lymphocytes % (Manual) Monocytes % (Manual) Eosinophils % (Manual) Basophils % (Manual) Nucleated RBC % Seg Neutrophils # Seg Neutrophils # Man Lymphocytes # (Manual) Monocytes # (Manual) Eosinophils # (Manual) PT INR Fibrinogen dRVVT Confirm Interp Factor V Activity POC ABG pH POC ABG pCO2 POC ABG pO2 Sodium Potassium Chloride Carbon Dioxide BUN Creatinine Glucose POC Glucose 121 H Lactic Acid Calcium Phosphorus Magnesium Direct Bilirubin AST ALT Alkaline Phosphatase Lactate Dehydrogenase Troponin T C-Reactive Protein Total Protein Albumin Prealbumin Triglycerides Cholesterol LDL Cholesterol Direct HDL Cholesterol Urine pH Urine WBC (Auto) Urine Creatinine Urine Total Protein Vancomycin Trough Rheumatoid Factor Complement C4 Miscellaneous Test Crossmatch Allied health notes reviewed: RT
--- NOTE | 2016-11-15 11:49 | Progress Note ---
Assessment and Plan Assessment: 1) Recurrent Sepsis: noted low grade fever overnight -S/p multiple episodes of sepsis - initially due to presumed aspiration pneumonia, then septic episode on 09/23 from Candidemia. Then from - peritonitis from gastric perforation +/- UTI. Latest episode was due to abdominal wall abscess at surgical site. -CRP 19 --> 22 -->11 -Procalcitonin=24 --> 16 --> 4.3 --> 1.8 on 10/05 -Vascath tip + Coag neg Staph, GNR - removed -repeat CT no abscess. Reviewed CT with radiologist NO fistula bue a 2x2cm abdominal wall collection. Same area previously grew Pseudomonas MDR sens to cefepime -recent respiratory specimen + MDR Pseudomonas-likely a colonizer -Urine grew VRE with negative UA-likely a colonizer 2) History of Peritonitis: from gastric perforation from dislodged PEG with significant ascites -S/P exlap, repair of gastric perforation with wedge gastrectomy, abdominal washout, drain placement on 10/05. 3) History of Candidemia: -Blood cultures positive for Silvia albicans on 09/23 -Blood cultures positive on 09/25 -Blood cultures negative on 09/30 -PICC line changed on 10/03 -Source ? gastric perf (PEG placed on 09/20) +/- TPN +/- central lines -TTE 10/07 no vegetations -PICC exchanged on 10/03 -fully treated with micafungin for 14 days last day 10/13 4) History CA-UTI s/p gutierrez exchanged 5) Diarrhea - ? etiology ? antibiotic-induced, not better 6) Initial presumed aspiration pneumonia 7) Respiratory failure s/p trach 8) Recent CVA-left MCA CVA 9) Uncontrolled HTN 10) Acute on CKD 11) Extensive back skin peeling ? burn from gastric secretions. Doubt allergic reaction - resolved 12) Severe anemia; ? from GI bleed 13) Recent abdominal wall abscess at surgical site-treated Plan: -monitor fever off antibiotics -f/u pleural culture -overall prognosis guarded, patient at high risk for nosocomial infections Thank you Dr Ribeiro for your consultation, will follow up with you. Pauline Carias MD Infectious Diseases Specialist [facility] M [phone] O [phone] Subjective Date of service: 11/15/16 Principal diagnosis: Acute resp failure on MVS; S/P Acute CVA; Acute Encephalopathy; JUANITA Interval history: Interval history: Noted low grade fever overnight 100.7. Underwent thoracentesis yesterday. Microbiology: Blood cultures: 09/13 neg 8/ Silvia albicans 09/25 Silvia 09/29 neg 10/07 neg 11/05 neg 11/07 ngtd Urine cultures: 09/10 neg 09/13 neg 8/ 10-100K mixed species 10/07 neg 11/05 VRE 11/07 mixed bacteria Respiratory cultures: 09/07 neg 09/13 neg 09/23 neg 11/07 MDR Pseudomonas Wound cultures: 10/17 abd wall wound purulence + Pseudomonas MDR Stool cultures: cath tip 11/07 + [employer] Current Antimicrobials: none Previous Antimicrobials: Zosyn 10/07 Vancomycin PO 10/01 Metronidazole 09/25 Micafungin 09/27-10/13 Meropenem 10/10 Vanco 10/17 zosyn 10/21 Cefepime 11/10 vancomyin 11/07 fluconazole 10/19 cefepime 10/29levaquin 11/05 Objective - Exam Narrative Exam: General appearance: alert, non communicative, on the vent via trach no following commands Eyes: anicteric sclera, moist conjunctivae; PERRLA HENT: Atraumatic; oropharynx limited; Normal external ears. +NGT with greenish secretion Neck: +trach in place; supple, no thyromegaly or lymphadenopathy Lungs: CTA CV: tachycardic Abdomen: Soft, non-tender, +old PEG site no drainage. +iliostomy. Right sided Surgical site x 2 with ostomy bag draining minimal yellowish secretion Extremities: +peripheral edema no extremity lymphadenopathy Skin: sacral area wounds superficial no purulence Psych: somnolent . Neuro: alert non verbal on the vent. Lines: left arm PICC placed on 10/03 - Constitutional Vitals: Vital Signs Temp Pulse Resp BP Pulse Ox 98.6 F 108 H 22 174/93 97 11/15/16 08:00 11/15/16 11:30 11/15/16 11:00 11/15/16 11:30 11/15/16 11:00 Temperature -Last 24 Hours Temperature 98.6 F Temperature 100.7 F Temperature 99.1 F Temperature 98.4 F Temperature 98.4 F Temperature 98.0 F Temperature 98.7 F Temperature 97.5 F - Labs CBC & Chem 7: 11/15/16 03:30 11/15/16 03:30 Labs: Abnormal lab results 11/15/16 11/15/16 11/15/16 Range/Units 00:37 03:30 03:30 WBC 11.2 H (4.5-11.0) K/mm3 RBC 2.72 L (3.65-5.03) M/mm3 Hgb 7.6 L (10.1-14.3) gm/dl Hct 23.4 L (30.3-42.9) % RDW 16.5 H (13.2-15.2) % Potassium 3.4 L (3.6-5.0) mmol/L BUN 25 H (7-17) mg/dL Creatinine 1.5 H (0.7-1.2) mg/dL Glucose 103 H (65-100) mg/dL POC Glucose 108 H (70-105) 11/15/16 Range/Units 05:04 WBC (4.5-11.0) K/mm3 RBC (3.65-5.03) M/mm3 Hgb (10.1-14.3) gm/dl Hct (30.3-42.9) % RDW (13.2-15.2) % Potassium (3.6-5.0) mmol/L BUN (7-17) mg/dL Creatinine (0.7-1.2) mg/dL Glucose (65-100) mg/dL POC Glucose 121 H (70-105)
[2016-11-15] MEDS ORDERED: PNEUMOVAX 23 IM ONE (12:00)
[2016-11-15] MEDS ORDERED: Fluarix Quad 2017-2018(36 MOS+ IM ONE (12:00)
[2016-11-15] MEDS ORDERED: POTASSIUM CHLORIDE FEEDTUBE ONE (13:00)
--- NOTE | 2016-11-15 14:24 | Progress Note ---
Assessment and Plan Patient with dislodge PEG tube s/p laparoscopic washout and repair of gastrotomy. Continue abx's. We will await for surgical scars to heal and no signs of infection to be present prior to proceeding with PEG tube. Subjective Date of service: 11/15/16 Patient Reports: Positive: no new complaints (Unable to communicate. In no distress.) Objective Vital Signs - 12hr 11/15/16 11/15/16 11/15/16 03:00 03:20 03:37 Temperature 100.7 F H Pulse Rate 110 H 108 H Pulse Rate [ From Monitor] Respiratory 18 16 Rate Blood Pressure 143/80 O2 Sat by Pulse 99 100 Oximetry O2 Sat by Pulse Oximetry [ Assessment] 11/15/16 11/15/16 11/15/16 03:39 04:00 04:49 Temperature Pulse Rate 108 H 109 H 109 H Pulse Rate [ From Monitor] Respiratory 17 Rate Blood Pressure 157/90 152/87 161/90 O2 Sat by Pulse 100 100 Oximetry O2 Sat by Pulse Oximetry [ Assessment] 11/15/16 11/15/16 11/15/16 05:00 05:16 05:30 Temperature Pulse Rate 108 H 99 H 99 H Pulse Rate [ From Monitor] Respiratory 16 18 Rate Blood Pressure 162/89 164/88 O2 Sat by Pulse 100 100 Oximetry O2 Sat by Pulse Oximetry [ Assessment] 11/15/16 11/15/16 11/15/16 06:00 07:00 08:00 Temperature 98.6 F Pulse Rate 93 H 99 H 93 H Pulse Rate [ 91 H From Monitor] Respiratory 14 16 33 H Rate Blood Pressure 109/57 154/84 149/81 O2 Sat by Pulse 98 100 97 Oximetry O2 Sat by Pulse Oximetry [ Assessment] 11/15/16 11/15/16 11/15/16 08:50 08:55 09:00 Temperature Pulse Rate 92 H Pulse Rate [ From Monitor] Respiratory 23 Rate Blood Pressure 144/83 O2 Sat by Pulse 99 96 Oximetry O2 Sat by Pulse 99 Oximetry [ Assessment] 11/15/16 11/15/16 11/15/16 09:07 10:00 11:00 Temperature Pulse Rate 101 H 102 H 108 H Pulse Rate [ From Monitor] Respiratory 32 H 22 Rate Blood Pressure 144/83 171/93 175/93 O2 Sat by Pulse 97 97 Oximetry O2 Sat by Pulse Oximetry [ Assessment] 11/15/16 11/15/16 11/15/16 11:30 11:45 12:00 Temperature 98.7 F Pulse Rate 108 H 96 H Pulse Rate [ 96 H From Monitor] Respiratory 22 22 Rate Blood Pressure 174/93 148/74 O2 Sat by Pulse 99 96 Oximetry O2 Sat by Pulse Oximetry [ Assessment] 11/15/16 11/15/16 13:00 13:45 Temperature Pulse Rate 88 105 H Pulse Rate [ From Monitor] Respiratory 24 Rate Blood Pressure 120/62 161/59 O2 Sat by Pulse 100 Oximetry O2 Sat by Pulse Oximetry [ Assessment] - General physical appearance no distress, chronically ill, obese - Eyes other (Able to track movements) - Respiratory normal expansion, normal respiratory effort, other (Coarse breath sounds. Off ventilator) - Abdomen soft, not tender, bowel sounds normal, surgical scars (are in process of healing. Some discharge still present) - Labs 11/15/16 03:30 11/15/16 03:30 Diabetes panel 11/15/16 Range/Units 03:30 Sodium 141 (137-145) mmol/L Potassium 3.4 L (3.6-5.0) mmol/L Chloride 103.9 (98-107) mmol/L Carbon Dioxide 24 (22-30) mmol/L BUN 25 H (7-17) mg/dL Creatinine 1.5 H (0.7-1.2) mg/dL Glucose 103 H (65-100) mg/dL Calcium 8.7 (8.4-10.2) mg/dL Calcium panel 11/15/16 Range/Units 03:30 Calcium 8.7 (8.4-10.2) mg/dL Pituitary panel 11/15/16 Range/Units 03:30 Sodium 141 (137-145) mmol/L Potassium 3.4 L (3.6-5.0) mmol/L Chloride 103.9 (98-107) mmol/L Carbon Dioxide 24 (22-30) mmol/L BUN 25 H (7-17) mg/dL Creatinine 1.5 H (0.7-1.2) mg/dL Glucose 103 H (65-100) mg/dL Calcium 8.7 (8.4-10.2) mg/dL Adrenal panel 11/15/16 Range/Units 03:30 Sodium 141 (137-145) mmol/L Potassium 3.4 L (3.6-5.0) mmol/L Chloride 103.9 (98-107) mmol/L Carbon Dioxide 24 (22-30) mmol/L BUN 25 H (7-17) mg/dL Creatinine 1.5 H (0.7-1.2) mg/dL Glucose 103 H (65-100) mg/dL Calcium 8.7 (8.4-10.2) mg/dL
--- NOTE | 2016-11-15 18:14 | Progress Note ---
Assessment and Plan Assessment and plan: 46-year-old woman with a history of hypertension, diabetes, asthma, hyperlipidemia, chronic kidney disease and anxiety , who was brought in by family because, she couldn't get her words out, her face was also twisted, she was admitted for acute CVA and accelerated hypertension, she had a hx of poor adherence with her medications, and uncontrolled htn. Patient's SBP on admission was noted be greater than 260. TPA was started but this was discontinued after 5 minutes because her blood pressure became uncontrolled. The TPA was not initiated again because the patient was outside the TPA window. Fever Had fever of 100.3 yesterday. ID Physician following. I have discussed case with her multiple times. Patient was recently on Cefepime and Vancomycin, now discontinued few days ago by ID Physician , to monitor off Antibiotics. chest x-ray, blood cultures were unremarkable, catheter site growing multiple organisms -Severe Sepsis with septic shock, recurrent. Patient with multiple episodes of sepsis. Initial episode due to presumed aspiration pneumonia and septic episode on 09/23 from candidemia then a third episode from peritonitis from gastric perforation from dislodged PEG , there was an abscess in the abdomen present at that time that was draining pus. +/-UTI. The latest episode was related to surgical site infection. Antibiotics discontinued few days ago. ID Physician to follow. Surgical wound infection/gram-negative sepsis/candidemia/peritonitis PEG has been removed She will need to be on tube feeds through NG tube for a month, and then either a gastrostomy or jejunostomy tube replaced after her GI wounds have healed and infection is cleared -continue wound care to ostomy sites JUANITA, now ESRD Likely due to vasomotor nephropathy and ATN given sepsis Nephrology input appreciated, continue hemodialysis as per Nephrology Creatinine 2.2 today Acute CVA with infarct. sp TPA Continue neuro checks. Neurology input appreciated, CT shows continued evolution of left MCA infarct with slight mass effect and edema, and there is no hemorrhage - PRINCE showed hyperdynamic with ef of 75%, neither clot nor septal defect seen - MRA Brain shows near complete occlusion of M2 and M3 of the left MCA - Repeat CT scan done on 09/11, shows stable findings - carotid doppler negative - Echo shows preserved systolic function but does show some left ventricular diastolic dysfunction - continue asa and statin for secondary ppx Paroxysmal atrial fibrillation. On Metoprolol Persistent vegetative state This patient's needs placement at either hospice or SNF -She was denied for LTACH Acute hypoxic respiratory failure requiring MV >96hrs Status post tracheostomy, continue to wean off vent, has been tolerating T piece Nosocomial acquired aspiration pneumonia/sepsis/UTI She had completed a course of antibiotics. Now on Cefepime and Vanco for fever Asthma/COPD exacerbation Now has trach Acute Toxic Metabolic encephalopathy. Multitifactorial, mostly secondary to evolution of CVA Hypertensive Emergency Now on Metoprolol, Cozaar,Hydralazine, Clonidine patch. Bilateral pleural effusion, s/p right thoracentesis today Paroxysmal atrial fibrillation with rapid ventricular rate, failed cardioversion Continue current medications, Not a candidate for anticoagulation secondary to anemia, thrombocytopenia, and massive CVA Hypokalemia/Hypomagnesemia/hypophosphatemia. Replete electrolytes as needed. Diabetes type 2. Continue sliding-scale regular insulin and Accu-Cheks. Hyperlipidemia. Continue statin Nutrition continue tube feeds Anemia requiring multiple transfusions/acute blood loss Has received total 13 units of PRBC this admission. Will continue to transfuse to keep Hemoglobin above 7 Hemoglobin 8.9, most recent Her POA is her Brother, Jam [phone] Disposition. Very poor prognosis. Plan is for SNF placement. She was denied by LTAC Will need to have family meeting to discuss goals of care, the patient is not recovering and will most likely benefit from DNR and Hospice placement History Interval history: She opens her eyes, but does not obey commands. Has tracheostomy in place still having fever, tolerating T piece Hospitalist Physical - Physical exam Narrative exam: General: Opens eyes, no distress, appears chronically ill HEENT: MMM, EOMI cardiac: S1-S2 heard lungs: ventilated breath sounds abdomen: soft, nontender, nondistended bowel sounds positive multiple ostomy bags noted, drainage is reduced extremities: no edema clubbing or cyanosis Skin: no rash or lesion Neuro: Status post tracheostomy, opens eyes, does not obey commands, right- sided weakness (i.e Right side less responsive to painful stimuli) - Constitutional Vitals: Temp Pulse Resp BP Pulse Ox 98.6 F 107 H 16 180/94 97 11/15/16 16:00 11/15/16 17:00 11/15/16 17:00 11/15/16 17:00 11/15/16 17:00 General appearance: Present: no acute distress, obese, other (on vent, non- responsive) Results - Labs CBC & Chem 7: 11/17/16 03:20 11/17/16 03:20 Labs: Laboratory Last Values WBC 11.2 K/mm3 (4.5-11.0) H 11/15/16 03:30 RBC 2.72 M/mm3 (3.65-5.03) L 11/15/16 03:30 Hgb 7.6 gm/dl (10.1-14.3) L 11/15/16 03:30 Hct 23.4 % (30.3-42.9) L 11/15/16 03:30 MCV 86 fl (79-97) 11/15/16 03:30 MCH 28 pg (28-32) 11/15/16 03:30 MCHC 33 % (30-34) 11/15/16 03:30 RDW 16.5 % (13.2-15.2) H 11/15/16 03:30 Plt Count 331 K/mm3 (140-440) 11/15/16 03:30 Lymph % (Auto) 22.6 % (13.4-35.0) 11/11/16 06:59 [place] % (Auto) 10.8 % (0.0-7.3) H 11/11/16 06:59 Eos % (Auto) 0.9 % (0.0-4.3) 11/11/16 06:59 Baso % (Auto) 0.8 % (0.0-1.8) 11/11/16 06:59 Lymph # 2.1 K/mm3 (1.2-5.4) 11/11/16 06:59 [place] # 1.0 K/mm3 (0.0-0.8) H 11/11/16 06:59 Eos # 0.1 K/mm3 (0.0-0.4) 11/11/16 06:59 Baso # 0.1 K/mm3 (0.0-0.1) 11/11/16 06:59 Add Manual Diff Complete 10/27/16 06:30 Total Counted 100 10/27/16 06:30 Seg Neutrophils % 64.9 % (40.0-70.0) 11/11/16 06:59 Seg Neuts % (Manual) 78.0 % (40.0-70.0) H 10/27/16 06:30 Band Neutrophils % 0 % 10/27/16 06:30 Lymphocytes % (Manual) 14.0 % (13.4-35.0) 10/27/16 06:30 Reactive Lymphs % (Man) 0 % 10/27/16 06:30 Monocytes % (Manual) 7.0 % (0.0-7.3) 10/27/16 06:30 Eosinophils % (Manual) 0 % (0.0-4.3) 10/27/16 06:30 Basophils % (Manual) 1.0 % (0.0-1.8) 10/27/16 06:30 Metamyelocytes % 0 % 10/27/16 06:30 Myelocytes % 0 % 10/27/16 06:30 Promyelocytes % 0 % 10/27/16 06:30 Blast Cells % 0 % 10/27/16 06:30 Nucleated RBC % 2.0 % (0.0-0.9) H 10/27/16 06:30 Seg Neutrophils # 5.9 K/mm3 (1.8-7.7) 11/11/16 06:59 Seg Neutrophils # Man 10.8 K/mm3 (1.8-7.7) H 10/27/16 06:30 Band Neutrophils # 0.0 K/mm3 10/27/16 06:30 Lymphocytes # (Manual) 1.9 K/mm3 (1.2-5.4) 10/27/16 06:30 Abs React Lymphs (Man) 0.0 K/mm3 10/27/16 06:30 Monocytes # (Manual) 1.0 K/mm3 (0.0-0.8) H 10/27/16 06:30 Eosinophils # (Manual) 0.0 K/mm3 (0.0-0.4) 10/27/16 06:30 Basophils # (Manual) 0.1 K/mm3 (0.0-0.1) 10/27/16 06:30 Metamyelocytes # 0.0 K/mm3 10/27/16 06:30 Myelocytes # 0.0 K/mm3 10/27/16 06:30 Promyelocytes # 0.0 K/mm3 10/27/16 06:30 Blast Cells # 0.0 K/mm3 10/27/16 06:30 Pathologist Review 09/13/16 04:00 WBC Morphology Not Reportable 10/27/16 06:30 Hypersegmented Neuts Not Reportable 10/27/16 06:30 Hyposegmented Neuts Not Reportable 10/27/16 06:30 Hypogranular Neuts Not Reportable 10/27/16 06:30 Smudge Cells Not Reportable 10/27/16 06:30 Toxic Granulation Not Reportable 10/27/16 06:30 Toxic Vacuolation Not Reportable 10/27/16 06:30 Dohle Bodies Not Reportable 10/27/16 06:30 Pelger-Huet Anomaly Not Reportable 10/27/16 06:30 Jasmina Rods Not Reportable 10/27/16 06:30 Platelet Estimate Cons 10/27/16 06:30 Clumped Platelets Not Reportable 10/27/16 06:30 Plt Clumps, EDTA Not Reportable 10/27/16 06:30 Large Platelets Few 10/27/16 06:30 Giant Platelets Not Reportable 10/27/16 06:30 Platelet Satelliting Not Reportable 10/27/16 06:30 Plt Morphology Comment Not Reportable 10/27/16 06:30 RBC Morphology Not Reportable 10/27/16 06:30 Dimorphic RBCs Not Reportable 10/27/16 06:30 Polychromasia Not Reportable 10/27/16 06:30 Hypochromasia Not Reportable 10/27/16 06:30 Poikilocytosis Not Reportable 10/27/16 06:30 Anisocytosis 1+ 10/27/16 06:30 Microcytosis Not Reportable 10/27/16 06:30 Macrocytosis Not Reportable 10/27/16 06:30 Spherocytes Not Reportable 10/27/16 06:30 Pappenheimer Bodies Not Reportable 10/27/16 06:30 Sickle Cells Not Reportable 10/27/16 06:30 Target Cells Not Reportable 10/27/16 06:30 Tear Drop Cells Not Reportable 10/27/16 06:30 Ovalocytes Not Reportable 10/27/16 06:30 Stomatocytes Few 10/06/16 03:50 Helmet Cells Not Reportable 10/27/16 06:30 [place] Bodies Not Reportable 10/27/16 06:30 [place] Rings Not Reportable 10/27/16 06:30 [place] Cells Not Reportable 10/27/16 06:30 Bite Cells Not Reportable 10/27/16 06:30 Crenated Cell Not Reportable 10/27/16 06:30 Elliptocytes Not Reportable 10/27/16 06:30 Acanthocytes (Spur) Not Reportable 10/27/16 06:30 Rouleaux Not Reportable 10/27/16 06:30 Hemoglobin C Crystals Not Reportable 10/27/16 06:30 Schistocytes Not Reportable 10/27/16 06:30 Malaria parasites Not Reportable 10/27/16 06:30 ESR > 140.0 mm/Hr (0-20) 09/08/16 11:48 Jun Bodies Not Reportable 10/27/16 06:30 Hem Pathologist Commnt No 10/27/16 06:30 PT 14.9 Sec. (12.2-14.9) 11/11/16 09:50 INR 1.18 (0.87-1.13) H 11/11/16 09:50 APTT 33.0 Sec. (24.2-36.6) 10/09/16 03:45 Thrombin Time 16.8 Sec. (15.1-19.6) 09/03/16 00:10 Fibrinogen 750 mg/dl (211-480) H 09/08/16 11:48 Lupus Anticoagulant see below 09/12/16 09:59 LA PTT Baseline See scanned report 09/12/16 09:59 dRVVT Confirm Interp Positive (Negative) H 09/12/16 09:59 dRVVT Screen 50:50 See scanned report 09/12/16 09:59 dRVVT Mix Interpret See scanned report 09/12/16 09:59 Protein C Antigen 122 % (70-140) 09/08/16 15:35 Free Protein S 97 % normal (50-147) 09/08/16 15:35 Total Protein S 109 % (70-140) 09/08/16 15:35 Antithrombin III Ag 100 % (80-120) 09/08/16 15:35 Heparin Anti-Xa, Unfract Negative (Negative) 09/29/16 13:35 Factor V Activity 182 % (65-150) H 09/08/16 15:35 POC ABG pH 7.478 (7.35-7.45) H 11/08/16 23:37 POC ABG pCO2 34.0 (35-45) L 11/08/16 23:37 POC ABG pO2 50 (80-105) L 11/08/16 23:37 POC ABG HCO3 25.2 11/08/16 23:37 POC ABG Total CO2 26 11/08/16 23:37 POC ABG O2 Sat 88 11/08/16 23:37 POC ABG Base Excess 2 11/08/16 23:37 FiO2 28 % 11/08/16 23:37 Sodium 141 mmol/L (137-145) 11/15/16 03:30 Potassium 3.4 mmol/L (3.6-5.0) L 11/15/16 03:30 Chloride 103.9 mmol/L (98-107) 11/15/16 03:30 Carbon Dioxide 24 mmol/L (22-30) 11/15/16 03:30 Anion Gap 17 mmol/L 11/15/16 03:30 BUN 25 mg/dL (7-17) H 11/15/16 03:30 Creatinine 1.5 mg/dL (0.7-1.2) H 11/15/16 03:30 Estimated GFR 45 ml/min 11/15/16 03:30 BUN/Creatinine Ratio 16.66 % 11/15/16 03:30 Glucose 103 mg/dL (65-100) H 11/15/16 03:30 POC Glucose 121 (70-105) H 11/15/16 05:04 Osmolality 351 Mosm/kg 09/16/16 11:47 Lactic Acid 4.50 mmol/L (0.7-2.0) H* 09/28/16 07:25 Calcium 8.7 mg/dL (8.4-10.2) 11/15/16 03:30 Phosphorus 4.40 mg/dL (2.5-4.5) 11/07/16 06:30 Magnesium 2.20 mg/dL (1.7-2.3) 11/07/16 06:30 Total Bilirubin 0.20 mg/dL (0.1-1.2) 11/06/16 06:25 Direct Bilirubin 0.3 mg/dL (0-0.2) H 10/10/16 05:00 Indirect Bilirubin 0.1 mg/dL 10/10/16 05:00 AST 103 units/L (5-40) H 11/06/16 06:25 ALT 77 units/L (7-56) H 11/06/16 06:25 Alkaline Phosphatase 285 units/L (35-129) H 11/06/16 06:25 Ammonia 27.0 umol/L (25-60) 09/07/16 08:37 Lactate Dehydrogenase 196 units/L (91-180) H 11/11/16 06:59 Total Creatine Kinase 121 units/L (30-135) 09/29/16 20:12 CK-MB (CK-2) < 1.0 ng/mL (0.0-4.0) 09/29/16 20:12 CK-MB (CK-2) Rel Index 0.8 (0-4) 09/29/16 20:12 Troponin T 0.204 ng/mL (0.00-0.029) H* 09/29/16 20:12 C-Reactive Protein 11.40 mg/dL (0.00-1.30) H 11/05/16 13:25 Total Protein 6.1 g/dL (6.3-8.2) L 11/11/16 06:59 Albumin 1.8 g/dL (3.9-5) L 11/06/16 06:25 Albumin/Globulin Ratio 0.4 % 11/06/16 06:25 Prealbumin 0.180 g/L (0.200-0.400) L 11/06/16 06:25 Triglycerides 137 mg/dL (2-149) 09/29/16 20:12 Cholesterol 31 mg/dL (50-199) L 09/29/16 20:12 LDL Cholesterol Direct 4 mg/dL (50-130) L 09/29/16 20:12 HDL Cholesterol 3 mg/dL (40-59) L 09/29/16 20:12 Cholesterol/HDL Ratio 10.33 % 09/29/16 20:12 Angiotensin Convert Enz See scanned report 09/08/16 11:48 Renin 0.99 ng/mL/h (0.25-5.82) 10/07/16 10:56 Aldosterone <1 ng/dL () 10/07/16 10:56 Aldosterone/Renin Dir see below 10/07/16 10:56 Serotonin Release Assay See scanned report 09/29/16 13:35 TSH 1.010 mlU/mL (0.270-4.200) 09/07/16 08:37 HCG, Qual Negative (Negative) 09/03/16 00:10 Urine Color Yellow (Yellow) 11/05/16 13:09 Urine Turbidity Clear (Clear) 11/05/16 13:09 Urine pH 9.0 (5.0-7.0) H 11/05/16 13:09 Ur Specific Leon 1.011 (1.003-1.030) 11/05/16 13:09 Urine Protein 100 mg/dl mg/dL (Negative) 11/05/16 13:09 Urine Glucose (UA) Neg mg/dL (Negative) 11/05/16 13:09 Urine Ketones Neg mg/dL (Negative) 11/05/16 13:09 Urine Blood Neg (Negative) 11/05/16 13:09 Urine Nitrite Neg (Negative) 11/05/16 13:09 Urine Bilirubin Neg (Negative) 11/05/16 13:09 Urine Urobilinogen < 2.0 mg/dL (<2.0) 11/05/16 13:09 Ur Leukocyte Esterase Neg (Negative) 11/05/16 13:09 Urine WBC (Auto) 4.0 /HPF (0.0-6.0) 11/05/16 13:09 Urine RBC (Auto) 1.0 /HPF (0.0-6.0) 11/05/16 13:09 U Epithel Cells (Auto) 1.0 /HPF (0-13.0) 10/07/16 18:30 Urine Bacteria (Auto) 4+ /HPF (Negative) 11/05/16 13:09 Urine WBC Clumps 2+ /HPF 09/07/16 02:47 Hyaline Casts 4 /LPF 09/07/16 02:47 Urine Mucus Few /HPF 10/07/16 18:30 Urine Yeast (Budding) 3+ /HPF 10/07/16 18:30 Urine Eosinophils None seen (None Seen) 09/07/16 16:00 Urine Total Volume 950 11/12/16 10:18 Urine Creatinine 19.7 mg/dL (0.1-20.0) 11/12/16 10:18 Height (in) 65.0 inches 11/12/16 10:18 Weight (lb) 181.0 lbs 11/12/16 10:18 Creatinine Clearance 5 11/12/16 10:18 Urine Sodium 36 mEq/L 09/16/16 19:19 Urine Total Protein 16 mg/dL (5-11.8) H 09/16/16 19:19 Vancomycin Trough 2.3 ug/mL (5.0-20.0) L 09/21/16 13:00 Random Vancomycin 24.7 ug/mL (0-40.0) 11/12/16 04:00 Urine Opiates Screen Presumptive negative 09/03/16 15:11 Urine Methadone Screen Presumptive positive 09/03/16 15:11 Ur Barbiturates Screen Presumptive positive 09/03/16 15:11 Ur Phencyclidine Scrn Presumptive negative 09/03/16 15:11 Ur Amphetamines Screen Presumptive negative 09/03/16 15:11 U Benzodiazepines Scrn Presumptive negative 09/03/16 15:11 Urine Cocaine Screen Presumptive negative 09/03/16 15:11 U Marijuana (THC) Screen Presumptive positive 09/03/16 15:11 Drugs of Abuse Note Disclamer 09/03/16 15:11 Rheumatoid Factor 24 IU/ml (0-13) H 09/08/16 11:48 SAHIL Screen Negative (Negative) 09/07/16 09:20 Proteinase 3 (PR3) Ab <1.0 AI (<1.0) 09/07/16 09:20 Myeloperoxidase Ab <1.0 AI (<1.0) 09/07/16 09:20 Sjogren's Antibody <1.0 AI (<1.0) 09/08/16 15:35 Scl-70 Scleroderma Ab <1.0 AI (<1.0) 09/08/16 15:35 Centromere B Antibody <1.0 AI (<1.0) 09/08/16 12:02 Heparin-induced Plt Ab Negative (Negative) 09/29/16 13:35 UF Heparin High Dose 11 % Release 09/29/16 13:35 SUDHIR UFH Low Dose 0.1 6 % Release 09/29/16 13:35 SUDHIR UFH Low Dose 0.5 8 % Release 09/29/16 13:35 Cardiolipid IgG Ab <14 GPL (<=14) 09/12/16 09:59 Cardiolipid IgA Ab <11 APL (<=11) 09/12/16 09:59 Cardiolipid IgM Ab <12 MPL (<=12) 09/12/16 09:59 Complement C3 148 mg/dL (90-180) 09/07/16 09:20 Complement C4 58 mg/dL (16-47) H 09/07/16 09:20 RPR Nonreactive (Nonreactive) 09/08/16 11:48 Hepatitis A IgM Ab Non-reactive (NonReactive) 09/24/16 14:40 Hep Bs Antigen Non-reactive (Negative) 09/24/16 14:40 Hep B Core IgM Ab Non-reactive (NonReactive) 09/24/16 14:40 Hepatitis C Antibody Non-reactive (NonReactive) 09/24/16 14:40 HIV 1&2 Antibody Rapid Non react (Non React) 09/08/16 11:48 HIV P24 Antigen Non react (Non React) 09/08/16 11:48 Miscellaneous Test Flexitest 1 H 11/05/16 13:25 Blood Type A POSITIVE 11/07/16 09:37 Antibody Screen Negative 11/07/16 09:37 DELORIS Antibody Screen Negative 09/25/16 10:30 Crossmatch See Detail 11/07/16 09:37
[2016-11-16] MEDS: APRESOLINE IV PRN ×4 (00:39→18:01)
[2016-11-16] MEDS: LOPRESSOR FEEDTUBE SCH ×3 (02:54→18:35)
[2016-11-16] MEDS: MORPHINE IV PRN ×4 (05:10→20:40)
[2016-11-16] MEDS: APRESOLINE PO SCH ×3 (05:38→21:52)
--- NOTE | 2016-11-16 08:34 | Progress Note ---
Assessment and Plan Assessment * Oliguric acute kidney injury secondary to ATN on CKD - baseline SCr 1.7mg/dL --24H urine CrCl 15ml/min on Sep 21 --24h urine CrCl 5ml/min Nov 13 * Sepsis * s/p Candidemia * s/p GI bleed * Acute CVA - left MCA with midline shift * Acute hypoxic respiratory failure * Left renal artery stenosis * Metabolic acidosis - improved * Anemia * Hyponatremia - multifactorial Plan: * Continue HD MWF. UF as tolerated * Transfusion of pRBC per primary team * Abx/antifungal per ID - currently off abx * Vent management per critical care * Dose medications for renal function * Avoid potential nephrotoxins * Pressors prn MAP>65 Subjective Date of service: 11/16/16 Principal diagnosis: Acute resp failure on MVS; S/P Acute CVA; Acute Encephalopathy; JUANITA Interval history: No acute events overnight. Objective - Vital Signs Vital signs: Vital Signs - 12hr 11/15/16 11/15/16 11/15/16 21:00 21:26 22:00 Temperature Pulse Rate 98 H 105 H 106 H Respiratory 24 38 H Rate Respiratory 18 Rate [Left Hand ] Blood Pressure 167/101 210/105 194/103 O2 Sat by Pulse 98 97 Oximetry O2 Sat by Pulse Oximetry [ Assessment] 11/15/16 11/15/16 11/15/16 23:00 23:19 23:20 Temperature Pulse Rate 93 H 104 H Respiratory 20 Rate Respiratory Rate [Left Hand ] Blood Pressure 143/73 137/75 O2 Sat by Pulse 99 100 Oximetry O2 Sat by Pulse 99 Oximetry [ Assessment] 11/15/16 11/16/16 11/16/16 23:33 00:00 00:39 Temperature 99.8 F H Pulse Rate 108 H 108 H Respiratory 20 Rate Respiratory Rate [Left Hand ] Blood Pressure 205/104 203/106 O2 Sat by Pulse 97 Oximetry O2 Sat by Pulse Oximetry [ Assessment] 11/16/16 11/16/16 11/16/16 01:00 02:00 02:54 Temperature Pulse Rate 113 H 112 H 113 H Respiratory 47 H 46 H Rate Respiratory Rate [Left Hand ] Blood Pressure 196/96 190/96 190/99 O2 Sat by Pulse 97 98 Oximetry O2 Sat by Pulse Oximetry [ Assessment] 11/16/16 11/16/16 11/16/16 03:00 03:03 04:00 Temperature 99.6 F Pulse Rate 114 H 107 H 93 H Respiratory 48 H 25 H Rate Respiratory Rate [Left Hand ] Blood Pressure 198/100 198/100 169/82 O2 Sat by Pulse 97 97 100 Oximetry O2 Sat by Pulse Oximetry [ Assessment] 11/16/16 11/16/16 11/16/16 05:00 05:38 06:00 Temperature Pulse Rate 104 H 89 114 H Respiratory 45 H 21 Rate Respiratory Rate [Left Hand ] Blood Pressure 200/101 160/82 149/77 O2 Sat by Pulse 99 97 Oximetry O2 Sat by Pulse Oximetry [ Assessment] 11/16/16 11/16/16 07:00 07:15 Temperature Pulse Rate 112 H Respiratory 38 H Rate Respiratory Rate [Left Hand ] Blood Pressure 228/140 221/125 O2 Sat by Pulse 98 Oximetry O2 Sat by Pulse Oximetry [ Assessment] - General Appearance General appearance: intubated EENT: ATNC Neck: other (trach) Respiratory: Present: Other (coarse breath sounds bilaterally) Cardiology: regular, S1S2 Integumentary: no rash Musculoskeletal: other (trace edema) - Lab 11/17/16 03:20 11/17/16 03:20 Most recent lab results Calcium 8.7 mg/dL (8.4-10.2) 11/15/16 03:30 Phosphorus 4.40 mg/dL (2.5-4.5) 11/07/16 06:30 Magnesium 2.20 mg/dL (1.7-2.3) 11/07/16 06:30 Urine Creatinine 19.7 mg/dL (0.1-20.0) 11/12/16 10:18 Urine Sodium 36 mEq/L 09/16/16 19:19 Urine Total Protein 16 mg/dL (5-11.8) H 09/16/16 19:19
[2016-11-16] MEDS: COZAAR PO SCH (10:35)
[2016-11-16] MEDS: PROTONIX FEEDTUBE SCH (10:35)
[2016-11-16] MEDS: QUESTRAN PO SCH (10:36)
[2016-11-16] MEDS: HumuLIN R SUB-Q SCH ×2 (12:15→18:00)
--- NOTE | 2016-11-16 12:24 | Progress Note ---
Assessment and Plan (1) Acute respiratory failure with hypoxia Current Visit: Yes Status: Acute Plan to address problem: - continue aspiration precautions - continue to wean oxygen for MAP > 94% - continue bronchodilators and pulmonary toilet - s/p tracheostomy - continue scopolamine - ABG's prn at this point for increased work of breathing or other resp distress - will send for right thoracentesis re: moderate effusion with the hope that it aids RTC t-piece tolerance - follow thoracentesis studies - continue t-piece trials RTC as tolerated (2) Acute CVA (cerebrovascular accident) Current Visit: Yes Status: Acute Plan to address problem: - Left MCA teritory stroke - seen by neurology and prognosis for recovery of mental status guarded to poor - optimizing secondary prevention modalities now (BP, lipid anti-platelet therapy) - off systemic steroids now (started earlier for edema) - clinically mild improvement (3) Hypertensive emergency Current Visit: Yes Status: Acute Plan to address problem: - continue antihypertensives (on metoprolol, clonidine and cozaar) - use prn hydralazine - resume sedation while on MVS (4) Obesity (BMI 35.0-39.9 without comorbidity) Current Visit: Yes Status: Chronic Plan to address problem: - now at goal rate on tube feeding - stopped TPN (5) Type 2 diabetes mellitus Current Visit: Yes Status: Chronic Qualifiers: Diabetes mellitus complication status: D Diabetes mellitus complication detail: D Diabetic retinopathy severity: D Proliferative retinopathy type: P Diabetes mellitus macular edema: D Diabetes mellitus exterminator helper insulin use : D Laterality: L Chronic kidney disease stage: C Plan to address problem: - continue SSI - discontinued lantus prior re: hypoglycemia - target BG's <180 mg/dl (6) Leukocytosis (leucocytosis) Current Visit: Yes Status: Acute Qualifiers: Leukocytosis type: leukemoid reaction Qualified Code(s): D72.823 - Leukemoid reaction Plan to address problem: - improving - see sepsis section below (7) Agitation Current Visit: Yes Status: Acute Plan to address problem: - prn sedation / analgesia - tapered off seroquel for now (8) Atrial fibrillation Current Visit: Yes Status: Acute Qualifiers: Atrial fibrillation type: A Plan to address problem: - off amiodarone - continue p.o. metoprolol scheduled at 50mg q6h and adjust as necessary (9) JUANITA (acute kidney injury) Current Visit: Yes Status: Acute Plan to address problem: - on Dialysis now - continue HD/UF per nephrology recommendations - s/p tunnelled vas-cath - HD/UF (10) Pyrexia of unknown origin Current Visit: Yes Status: Acute Plan to address problem: - dopplers negative for DVT - continue to treat with Anti-infectives (11) Severe sepsis Current Visit: Yes Status: Acute Plan to address problem: - resume vasopressors for MAP < 60mmHg not responsive to volume - continue anti-infectives per ID recs - VRE in urine noted; ? colonizer at this point - continue contact precautions - PSAR noted on trach aspirate from 11/07/16 (? Colonizer) - catheter tip however with >15CFU GNR growing now and may well be same organism (await ID- if that's the case however she is on appropriate AB's therapy) - clinically more stable overall (12) Emesis Current Visit: Yes Status: Acute Qualifiers: Vomiting type: V Vomiting Intractability: V Nausea presence: N Plan to address problem: - s/p surgical repair of gastric perforation - continue TPN for now - follow surgery recommendations re: feeding and new PEG tube - now tolerating tube feeds at goal rate (13) Dysphagia, oropharyngeal Current Visit: Yes Status: Acute Plan to address problem: - discussed with surgeon and she will be best served with continued treatment with anti-infectives as well as time for the GI tract and her wounds to heal before replacing the PEG tube - continue DHT feeding (14) Discharge planning issues Current Visit: Yes Status: Acute Plan to address problem: - she remains critically ill on life sustaining interventions including MVS and at risk for further acute deterioration including - if can stay off MVS for another 24 hours then can transfer to medical floor shortly .....30' CCT ....skilled nursing prognosis remains is guarded Subjective Date of service: 11/16/16 Principal diagnosis: Acute resp failure on MVS; S/P Acute CVA; Acute Encephalopathy; JUANITA Interval history: Seen and examined at bedside; 24 hour events reviewed; nursing and respiratory care staff consulted; no adverse overnight events reported to me; has gone 24 hours on T-piece and doing well so far; AMS is persistent; no emesis or overt aspiration; + persistent RLQ stomal drainage Objective Vital Signs - 12hr 11/16/16 11/16/16 11/16/16 00:39 01:00 02:00 Temperature Pulse Rate 108 H 113 H 112 H Respiratory 47 H 46 H Rate Blood Pressure 203/106 196/96 190/96 O2 Sat by Pulse 97 98 Oximetry 11/16/16 11/16/16 11/16/16 02:54 03:00 03:03 Temperature Pulse Rate 113 H 114 H 107 H Respiratory 48 H Rate Blood Pressure 190/99 198/100 198/100 O2 Sat by Pulse 97 97 Oximetry 11/16/16 11/16/16 11/16/16 04:00 05:00 05:38 Temperature 99.6 F Pulse Rate 93 H 104 H 89 Respiratory 25 H 45 H Rate Blood Pressure 169/82 200/101 160/82 O2 Sat by Pulse 100 99 Oximetry 11/16/16 11/16/16 11/16/16 06:00 07:00 07:15 Temperature Pulse Rate 114 H 112 H Respiratory 21 38 H Rate Blood Pressure 149/77 228/140 221/125 O2 Sat by Pulse 97 98 Oximetry 11/16/16 11/16/16 11/16/16 08:00 08:48 10:35 Temperature 98.3 F Pulse Rate 91 H Respiratory 19 Rate Blood Pressure 125/67 125/70 O2 Sat by Pulse 99 100 Oximetry Constitutional: no acute distress, other (eyes open; tracking movements) Eyes: non-icteric, other (tracheostomy tube in midline of neck) ENT: oropharynx moist Neck: supple, no lymphadenopathy Effort: mildly labored Ascultation: Bilateral: diminished breath sounds (bases), rhonchi Cardiovascular: regular rate and rhythm Gastrointestinal: hypoactive bowel sounds, soft, non-tender, non-distended, other (RLQ stomas with colostomy bags) Integumentary: other (healing back burn-like injury) Extremities: no cyanosis, no edema, pulses normal, no ischemia or petechiae Neurologic: pupils equal and round, other (sedated) Psychiatric: other (unable to assess) CBC and BMP: 11/17/16 03:20 11/17/16 03:20 ABG, PT/INR, D-dimer: ABG POC ABG pH 7.462 (7.35-7.45) H 11/15/16 21:28 POC ABG pCO2 36.4 (35-45) 11/15/16 21:28 POC ABG pO2 71 (80-105) L 11/15/16 21:28 POC ABG HCO3 26.0 11/15/16 21:28 POC ABG Total CO2 27 11/15/16 21:28 POC ABG O2 Sat 95 11/15/16 21:28 PT/INR, D-dimer PT 14.9 Sec. (12.2-14.9) 11/11/16 09:50 INR 1.18 (0.87-1.13) H 11/11/16 09:50 Abnormal lab findings: Abnormal Labs 09/03/16 09/03/16 09/03/16 12:12 15:07 16:20 WBC RBC Hgb Hct MCV MCH MCHC RDW Plt Count Lymph % (Auto) Ramsey % (Auto) Lymph # Ramsey # Baso # Seg Neutrophils % Seg Neuts % (Manual) Lymphocytes % (Manual) Monocytes % (Manual) Eosinophils % (Manual) Basophils % (Manual) Nucleated RBC % Seg Neutrophils # Seg Neutrophils # Man Lymphocytes # (Manual) Monocytes # (Manual) Eosinophils # (Manual) PT INR Fibrinogen dRVVT Confirm Interp Factor V Activity POC ABG pH 7.452 H POC ABG pCO2 POC ABG pO2 Sodium Potassium Chloride Carbon Dioxide BUN Creatinine Glucose POC Glucose 178 H Lactic Acid Calcium Phosphorus 2.20 L Magnesium 1.60 L Direct Bilirubin AST ALT Alkaline Phosphatase Lactate Dehydrogenase Troponin T C-Reactive Protein Total Protein Albumin Prealbumin Triglycerides Cholesterol LDL Cholesterol Direct HDL Cholesterol Urine pH Urine WBC (Auto) Urine Creatinine Urine Total Protein Vancomycin Trough Rheumatoid Factor Complement C4 Miscellaneous Test Crossmatch 09/03/16 09/03/16 09/03/16 17:57 17:58 23:50 WBC RBC Hgb Hct MCV MCH MCHC RDW Plt Count Lymph % (Auto) Ramsey % (Auto) Lymph # Ramsey # Baso # Seg Neutrophils % Seg Neuts % (Manual) Lymphocytes % (Manual) Monocytes % (Manual) Eosinophils % (Manual) Basophils % (Manual) Nucleated RBC % Seg Neutrophils # Seg Neutrophils # Man Lymphocytes # (Manual) Monocytes # (Manual) Eosinophils # (Manual) PT INR Fibrinogen dRVVT Confirm Interp Factor V Activity POC ABG pH POC ABG pCO2 POC ABG pO2 Sodium Potassium Chloride Carbon Dioxide BUN Creatinine Glucose POC Glucose 162 H 145 H Lactic Acid Calcium Phosphorus 2.30 L Magnesium Direct Bilirubin AST ALT Alkaline Phosphatase Lactate Dehydrogenase Troponin T C-Reactive Protein Total Protein Albumin Prealbumin Triglycerides Cholesterol LDL Cholesterol Direct HDL Cholesterol Urine pH Urine WBC (Auto) Urine Creatinine Urine Total Protein Vancomycin Trough Rheumatoid Factor Complement C4 Miscellaneous Test Crossmatch 09/04/16 09/04/16 09/04/16 03:31 03:31 05:42 WBC RBC Hgb 9.7 L D Hct MCV 72 L MCH 23 L MCHC RDW 17.5 H Plt Count Lymph % (Auto) 11.1 L Ramsey % (Auto) Lymph # Ramsey # Baso # Seg Neutrophils % 84.3 H Seg Neuts % (Manual) Lymphocytes % (Manual) Monocytes % (Manual) Eosinophils % (Manual) Basophils % (Manual) Nucleated RBC % Seg Neutrophils # 8.9 H Seg Neutrophils # Man Lymphocytes # (Manual) Monocytes # (Manual) Eosinophils # (Manual) PT INR Fibrinogen dRVVT Confirm Interp Factor V Activity POC ABG pH POC ABG pCO2 POC ABG pO2 Sodium 135 L Potassium 2.9 L* Chloride 97.2 L Carbon Dioxide 19 L BUN Creatinine 1.7 H Glucose 170 H POC Glucose 152 H Lactic Acid Calcium Phosphorus Magnesium Direct Bilirubin AST ALT Alkaline Phosphatase Lactate Dehydrogenase Troponin T C-Reactive Protein Total Protein Albumin Prealbumin Triglycerides 160 H Cholesterol LDL Cholesterol Direct HDL Cholesterol 31 L Urine pH Urine WBC (Auto) Urine Creatinine Urine Total Protein Vancomycin Trough Rheumatoid Factor Complement C4 Miscellaneous Test Crossmatch 09/04/16 09/04/16 09/04/16 11:34 17:46 23:29 WBC RBC Hgb Hct MCV MCH MCHC RDW Plt Count Lymph % (Auto) Ramsey % (Auto) Lymph # Ramsey # Baso # Seg Neutrophils % Seg Neuts % (Manual) Lymphocytes % (Manual) Monocytes % (Manual) Eosinophils % (Manual) Basophils % (Manual) Nucleated RBC % Seg Neutrophils # Seg Neutrophils # Man Lymphocytes # (Manual) Monocytes # (Manual) Eosinophils # (Manual) PT INR Fibrinogen dRVVT Confirm Interp Factor V Activity POC ABG pH POC ABG pCO2 POC ABG pO2 Sodium Potassium Chloride Carbon Dioxide BUN Creatinine Glucose POC Glucose 165 H 210 H 139 H Lactic Acid Calcium Phosphorus Magnesium Direct Bilirubin AST ALT Alkaline Phosphatase Lactate Dehydrogenase Troponin T C-Reactive Protein Total Protein Albumin Prealbumin Triglycerides Cholesterol LDL Cholesterol Direct HDL Cholesterol Urine pH Urine WBC (Auto) Urine Creatinine Urine Total Protein Vancomycin Trough Rheumatoid Factor Complement C4 Miscellaneous Test Crossmatch 09/05/16 09/05/16 09/05/16 04:05 04:05 05:38 WBC RBC Hgb Hct MCV 76 L D MCH 23 L MCHC RDW 17.8 H Plt Count Lymph % (Auto) Ramsey % (Auto) Lymph # Ramsey # Baso # Seg Neutrophils % Seg Neuts % (Manual) Lymphocytes % (Manual) Monocytes % (Manual) Eosinophils % (Manual) Basophils % (Manual) Nucleated RBC % Seg Neutrophils # Seg Neutrophils # Man Lymphocytes # (Manual) Monocytes # (Manual) Eosinophils # (Manual) PT INR Fibrinogen dRVVT Confirm Interp Factor V Activity POC ABG pH POC ABG pCO2 POC ABG pO2 Sodium 134 L Potassium Chloride Carbon Dioxide 18 L BUN Creatinine 1.8 H Glucose 192 H POC Glucose 175 H Lactic Acid Calcium Phosphorus Magnesium Direct Bilirubin AST ALT Alkaline Phosphatase Lactate Dehydrogenase Troponin T C-Reactive Protein Total Protein Albumin Prealbumin Triglycerides Cholesterol LDL Cholesterol Direct HDL Cholesterol Urine pH Urine WBC (Auto) Urine Creatinine Urine Total Protein Vancomycin Trough Rheumatoid Factor Complement C4 Miscellaneous Test Crossmatch 09/05/16 09/05/16 09/05/16 11:38 17:48 23:22 WBC RBC Hgb Hct MCV MCH MCHC RDW Plt Count Lymph % (Auto) Ramsey % (Auto) Lymph # Ramsey # Baso # Seg Neutrophils % Seg Neuts % (Manual) Lymphocytes % (Manual) Monocytes % (Manual) Eosinophils % (Manual) Basophils % (Manual) Nucleated RBC % Seg Neutrophils # Seg Neutrophils # Man Lymphocytes # (Manual) Monocytes # (Manual) Eosinophils # (Manual) PT INR Fibrinogen dRVVT Confirm Interp Factor V Activity POC ABG pH POC ABG pCO2 POC ABG pO2 Sodium Potassium Chloride Carbon Dioxide BUN Creatinine Glucose POC Glucose 164 H 186 H 195 H Lactic Acid Calcium Phosphorus Magnesium Direct Bilirubin AST ALT Alkaline Phosphatase Lactate Dehydrogenase Troponin T C-Reactive Protein Total Protein Albumin Prealbumin Triglycerides Cholesterol LDL Cholesterol Direct HDL Cholesterol Urine pH Urine WBC (Auto) Urine Creatinine Urine Total Protein Vancomycin Trough Rheumatoid Factor Complement C4 Miscellaneous Test Crossmatch 09/06/16 09/06/16 09/06/16 04:12 05:59 07:32 WBC RBC Hgb Hct MCV MCH MCHC RDW Plt Count Lymph % (Auto) Ramsey % (Auto) Lymph # Ramsey # Baso # Seg Neutrophils % Seg Neuts % (Manual) Lymphocytes % (Manual) Monocytes % (Manual) Eosinophils % (Manual) Basophils % (Manual) Nucleated RBC % Seg Neutrophils # Seg Neutrophils # Man Lymphocytes # (Manual) Monocytes # (Manual) Eosinophils # (Manual) PT INR Fibrinogen dRVVT Confirm Interp Factor V Activity POC ABG pH 7.514 H POC ABG pCO2 29.1 L POC ABG pO2 72 L Sodium 133 L Potassium 3.4 L Chloride 94.9 L Carbon Dioxide 19 L BUN 30 H Creatinine 2.1 H Glucose 139 H POC Glucose 146 H Lactic Acid Calcium Phosphorus Magnesium Direct Bilirubin AST ALT Alkaline Phosphatase Lactate Dehydrogenase Troponin T C-Reactive Protein Total Protein Albumin Prealbumin Triglycerides Cholesterol LDL Cholesterol Direct HDL Cholesterol Urine pH Urine WBC (Auto) Urine Creatinine Urine Total Protein Vancomycin Trough Rheumatoid Factor Complement C4 Miscellaneous Test Crossmatch 09/06/16 09/06/16 09/06/16 11:57 17:58 19:02 WBC RBC Hgb Hct MCV MCH MCHC RDW Plt Count Lymph % (Auto) Ramsey % (Auto) Lymph # Ramsey # Baso # Seg Neutrophils % Seg Neuts % (Manual) Lymphocytes % (Manual) Monocytes % (Manual) Eosinophils % (Manual) Basophils % (Manual) Nucleated RBC % Seg Neutrophils # Seg Neutrophils # Man Lymphocytes # (Manual) Monocytes # (Manual) Eosinophils # (Manual) PT INR Fibrinogen dRVVT Confirm Interp Factor V Activity POC ABG pH 7.465 H POC ABG pCO2 32.0 L POC ABG pO2 Sodium Potassium Chloride Carbon Dioxide BUN Creatinine Glucose POC Glucose 165 H 160 H Lactic Acid Calcium Phosphorus Magnesium Direct Bilirubin AST ALT Alkaline Phosphatase Lactate Dehydrogenase Troponin T C-Reactive Protein Total Protein Albumin Prealbumin Triglycerides Cholesterol LDL Cholesterol Direct HDL Cholesterol Urine pH Urine WBC (Auto) Urine Creatinine Urine Total Protein Vancomycin Trough Rheumatoid Factor Complement C4 Miscellaneous Test Crossmatch 09/06/16 09/07/16 09/07/16 23:45 02:47 02:47 WBC RBC Hgb Hct MCV MCH MCHC RDW Plt Count Lymph % (Auto) Ramsey % (Auto) Lymph # Ramsey # Baso # Seg Neutrophils % Seg Neuts % (Manual) Lymphocytes % (Manual) Monocytes % (Manual) Eosinophils % (Manual) Basophils % (Manual) Nucleated RBC % Seg Neutrophils # Seg Neutrophils # Man Lymphocytes # (Manual) Monocytes # (Manual) Eosinophils # (Manual) PT INR Fibrinogen dRVVT Confirm Interp Factor V Activity POC ABG pH POC ABG pCO2 POC ABG pO2 Sodium Potassium Chloride Carbon Dioxide BUN Creatinine Glucose POC Glucose 204 H Lactic Acid Calcium Phosphorus Magnesium Direct Bilirubin AST ALT Alkaline Phosphatase Lactate Dehydrogenase Troponin T C-Reactive Protein Total Protein Albumin Prealbumin Triglycerides Cholesterol LDL Cholesterol Direct HDL Cholesterol Urine pH Urine WBC (Auto) 68.0 H Urine Creatinine 106.1 H Urine Total Protein Vancomycin Trough Rheumatoid Factor Complement C4 Miscellaneous Test Crossmatch 09/07/16 09/07/16 09/07/16 04:50 06:19 06:39 WBC RBC Hgb Hct MCV MCH MCHC RDW Plt Count Lymph % (Auto) Ramsey % (Auto) Lymph # Ramsey # Baso # Seg Neutrophils % Seg Neuts % (Manual) Lymphocytes % (Manual) Monocytes % (Manual) Eosinophils % (Manual) Basophils % (Manual) Nucleated RBC % Seg Neutrophils # Seg Neutrophils # Man Lymphocytes # (Manual) Monocytes # (Manual) Eosinophils # (Manual) PT INR Fibrinogen dRVVT Confirm Interp Factor V Activity POC ABG pH 7.457 H POC ABG pCO2 32.1 L POC ABG pO2 76 L Sodium 132 L Potassium Chloride 94.7 L Carbon Dioxide BUN 53 H Creatinine 2.9 H Glucose 151 H POC Glucose 149 H Lactic Acid Calcium Phosphorus Magnesium Direct Bilirubin AST ALT Alkaline Phosphatase Lactate Dehydrogenase Troponin T C-Reactive Protein Total Protein Albumin Prealbumin Triglycerides Cholesterol LDL Cholesterol Direct HDL Cholesterol Urine pH Urine WBC (Auto) Urine Creatinine Urine Total Protein Vancomycin Trough Rheumatoid Factor Complement C4 Miscellaneous Test Crossmatch 09/07/16 09/07/16 09/07/16 09:20 11:43 11:43 WBC 19.4 H RBC Hgb 8.3 L Hct 26.4 L D MCV 72 L D MCH 22 L MCHC RDW 17.9 H Plt Count Lymph % (Auto) 8.5 L Ramsey % (Auto) Lymph # Ramsey # 1.0 H Baso # Seg Neutrophils % 85.8 H Seg Neuts % (Manual) Lymphocytes % (Manual) Monocytes % (Manual) Eosinophils % (Manual) Basophils % (Manual) Nucleated RBC % Seg Neutrophils # 16.6 H Seg Neutrophils # Man Lymphocytes # (Manual) Monocytes # (Manual) Eosinophils # (Manual) PT INR Fibrinogen dRVVT Confirm Interp Factor V Activity POC ABG pH POC ABG pCO2 POC ABG pO2 Sodium 134 L Potassium Chloride 97.2 L Carbon Dioxide 20 L BUN 58 H Creatinine 2.9 H Glucose 147 H POC Glucose Lactic Acid Calcium Phosphorus 2.40 L Magnesium 2.40 H Direct Bilirubin AST ALT Alkaline Phosphatase Lactate Dehydrogenase Troponin T C-Reactive Protein Total Protein 5.8 L Albumin 2.2 L Prealbumin Triglycerides Cholesterol LDL Cholesterol Direct HDL Cholesterol Urine pH Urine WBC (Auto) Urine Creatinine Urine Total Protein Vancomycin Trough Rheumatoid Factor Complement C4 58 H Miscellaneous Test Crossmatch 09/07/16 09/07/16 09/07/16 11:50 16:00 17:31 WBC RBC Hgb Hct MCV MCH MCHC RDW Plt Count Lymph % (Auto) Ramsey % (Auto) Lymph # Ramsey # Baso # Seg Neutrophils % Seg Neuts % (Manual) Lymphocytes % (Manual) Monocytes % (Manual) Eosinophils % (Manual) Basophils % (Manual) Nucleated RBC % Seg Neutrophils # Seg Neutrophils # Man Lymphocytes # (Manual) Monocytes # (Manual) Eosinophils # (Manual) PT INR Fibrinogen dRVVT Confirm Interp Factor V Activity POC ABG pH POC ABG pCO2 POC ABG pO2 158 H Sodium Potassium Chloride Carbon Dioxide BUN Creatinine Glucose POC Glucose 175 H Lactic Acid Calcium Phosphorus Magnesium Direct Bilirubin AST ALT Alkaline Phosphatase Lactate Dehydrogenase Troponin T C-Reactive Protein Total Protein Albumin Prealbumin Triglycerides Cholesterol LDL Cholesterol Direct HDL Cholesterol Urine pH Urine WBC (Auto) Urine Creatinine 66.3 H Urine Total Protein Vancomycin Trough Rheumatoid Factor Complement C4 Miscellaneous Test Crossmatch 09/07/16 09/08/16 09/08/16 23:50 05:46 06:18 WBC 17.8 H RBC 3.58 L Hgb 8.1 L Hct 25.5 L MCV 71 L MCH 23 L MCHC RDW 18.4 H Plt Count Lymph % (Auto) Ramsey % (Auto) Lymph # Ramsey # Baso # Seg Neutrophils % Seg Neuts % (Manual) 92.0 H Lymphocytes % (Manual) 6.0 L Monocytes % (Manual) Eosinophils % (Manual) Basophils % (Manual) Nucleated RBC % Seg Neutrophils # Seg Neutrophils # Man 16.4 H Lymphocytes # (Manual) 1.1 L Monocytes # (Manual) Eosinophils # (Manual) PT INR Fibrinogen dRVVT Confirm Interp Factor V Activity POC ABG pH POC ABG pCO2 34.3 L POC ABG pO2 71 L Sodium Potassium Chloride Carbon Dioxide BUN Creatinine Glucose POC Glucose 216 H Lactic Acid Calcium Phosphorus Magnesium Direct Bilirubin AST ALT Alkaline Phosphatase Lactate Dehydrogenase Troponin T C-Reactive Protein Total Protein Albumin Prealbumin Triglycerides Cholesterol LDL Cholesterol Direct HDL Cholesterol Urine pH Urine WBC (Auto) Urine Creatinine Urine Total Protein Vancomycin Trough Rheumatoid Factor Complement C4 Miscellaneous Test Crossmatch 09/08/16 09/08/16 09/08/16 06:18 06:51 10:55 WBC RBC Hgb Hct MCV MCH MCHC RDW Plt Count Lymph % (Auto) Ramsey % (Auto) Lymph # Ramsey # Baso # Seg Neutrophils % Seg Neuts % (Manual) Lymphocytes % (Manual) Monocytes % (Manual) Eosinophils % (Manual) Basophils % (Manual) Nucleated RBC % Seg Neutrophils # Seg Neutrophils # Man Lymphocytes # (Manual) Monocytes # (Manual) Eosinophils # (Manual) PT INR Fibrinogen dRVVT Confirm Interp Factor V Activity POC ABG pH POC ABG pCO2 POC ABG pO2 Sodium 133 L Potassium Chloride 96.9 L Carbon Dioxide 20 L BUN 63 H Creatinine 2.7 H Glucose 195 H POC Glucose 204 H 169 H Lactic Acid Calcium Phosphorus Magnesium Direct Bilirubin AST ALT Alkaline Phosphatase Lactate Dehydrogenase Troponin T C-Reactive Protein Total Protein Albumin Prealbumin Triglycerides Cholesterol LDL Cholesterol Direct HDL Cholesterol Urine pH Urine WBC (Auto) Urine Creatinine Urine Total Protein Vancomycin Trough Rheumatoid Factor Complement C4 Miscellaneous Test Crossmatch 09/08/16 09/08/16 09/08/16 11:48 11:48 11:48 WBC RBC Hgb Hct MCV MCH MCHC RDW Plt Count Lymph % (Auto) Ramsey % (Auto) Lymph # Ramsey # Baso # Seg Neutrophils % Seg Neuts % (Manual) Lymphocytes % (Manual) Monocytes % (Manual) Eosinophils % (Manual) Basophils % (Manual) Nucleated RBC % Seg Neutrophils # Seg Neutrophils # Man Lymphocytes # (Manual) Monocytes # (Manual) Eosinophils # (Manual) PT INR Fibrinogen 750 H dRVVT Confirm Interp Factor V Activity POC ABG pH POC ABG pCO2 POC ABG pO2 Sodium Potassium Chloride Carbon Dioxide BUN Creatinine Glucose POC Glucose Lactic Acid Calcium Phosphorus Magnesium Direct Bilirubin AST ALT Alkaline Phosphatase Lactate Dehydrogenase Troponin T C-Reactive Protein 15.70 H Total Protein Albumin Prealbumin Triglycerides Cholesterol LDL Cholesterol Direct HDL Cholesterol Urine pH Urine WBC (Auto) Urine Creatinine Urine Total Protein Vancomycin Trough Rheumatoid Factor 24 H Complement C4 Miscellaneous Test Crossmatch 09/08/16 09/08/16 09/09/16 15:35 18:25 00:24 WBC RBC Hgb Hct MCV MCH MCHC RDW Plt Count Lymph % (Auto) Ramsey % (Auto) Lymph # Ramsey # Baso # Seg Neutrophils % Seg Neuts % (Manual) Lymphocytes % (Manual) Monocytes % (Manual) Eosinophils % (Manual) Basophils % (Manual) Nucleated RBC % Seg Neutrophils # Seg Neutrophils # Man Lymphocytes # (Manual) Monocytes # (Manual) Eosinophils # (Manual) PT INR Fibrinogen dRVVT Confirm Interp Factor V Activity 182 H POC ABG pH POC ABG pCO2 POC ABG pO2 Sodium Potassium Chloride Carbon Dioxide BUN Creatinine Glucose POC Glucose 184 H 216 H Lactic Acid Calcium Phosphorus Magnesium Direct Bilirubin AST ALT Alkaline Phosphatase Lactate Dehydrogenase Troponin T C-Reactive Protein Total Protein Albumin Prealbumin Triglycerides Cholesterol LDL Cholesterol Direct HDL Cholesterol Urine pH Urine WBC (Auto) Urine Creatinine Urine Total Protein Vancomycin Trough Rheumatoid Factor Complement C4 Miscellaneous Test Crossmatch 09/09/16 09/09/16 09/09/16 03:00 03:00 04:04 WBC 27.9 H RBC Hgb 8.7 L Hct 28.1 L MCV 72 L MCH 22 L MCHC RDW 18.4 H Plt Count 485 H Lymph % (Auto) Ramsey % (Auto) Lymph # Ramsey # Baso # Seg Neutrophils % Seg Neuts % (Manual) 77.0 H Lymphocytes % (Manual) 9.0 L Monocytes % (Manual) Eosinophils % (Manual) Basophils % (Manual) Nucleated RBC % Seg Neutrophils # Seg Neutrophils # Man 21.5 H Lymphocytes # (Manual) Monocytes # (Manual) 2.0 H Eosinophils # (Manual) PT INR Fibrinogen dRVVT Confirm Interp Factor V Activity POC ABG pH POC ABG pCO2 POC ABG pO2 121 H Sodium 135 L Potassium Chloride 96.3 L Carbon Dioxide 21 L BUN 83 H Creatinine 3.0 H Glucose 135 H POC Glucose Lactic Acid Calcium Phosphorus Magnesium Direct Bilirubin AST ALT Alkaline Phosphatase Lactate Dehydrogenase Troponin T C-Reactive Protein Total Protein Albumin Prealbumin Triglycerides Cholesterol LDL Cholesterol Direct HDL Cholesterol Urine pH Urine WBC (Auto) Urine Creatinine Urine Total Protein Vancomycin Trough Rheumatoid Factor Complement C4 Miscellaneous Test Crossmatch 09/09/16 09/09/16 09/09/16 05:41 11:55 14:13 WBC RBC Hgb Hct MCV MCH MCHC RDW Plt Count Lymph % (Auto) Ramsey % (Auto) Lymph # Ramsey # Baso # Seg Neutrophils % Seg Neuts % (Manual) Lymphocytes % (Manual) Monocytes % (Manual) Eosinophils % (Manual) Basophils % (Manual) Nucleated RBC % Seg Neutrophils # Seg Neutrophils # Man Lymphocytes # (Manual) Monocytes # (Manual) Eosinophils # (Manual) PT INR Fibrinogen dRVVT Confirm Interp Factor V Activity POC ABG pH POC ABG pCO2 POC ABG pO2 Sodium Potassium Chloride Carbon Dioxide BUN Creatinine Glucose POC Glucose 155 H 186 H Lactic Acid Calcium Phosphorus Magnesium Direct Bilirubin AST ALT Alkaline Phosphatase Lactate Dehydrogenase Troponin T C-Reactive Protein Total Protein Albumin Prealbumin Triglycerides Cholesterol LDL Cholesterol Direct HDL Cholesterol Urine pH Urine WBC (Auto) 25.0 H Urine Creatinine Urine Total Protein Vancomycin Trough Rheumatoid Factor Complement C4 Miscellaneous Test Crossmatch 09/09/16 09/09/16 09/10/16 17:33 23:13 05:09 WBC RBC Hgb Hct MCV MCH MCHC RDW Plt Count Lymph % (Auto) Ramsey % (Auto) Lymph # Ramsey # Baso # Seg Neutrophils % Seg Neuts % (Manual) Lymphocytes % (Manual) Monocytes % (Manual) Eosinophils % (Manual) Basophils % (Manual) Nucleated RBC % Seg Neutrophils # Seg Neutrophils # Man Lymphocytes # (Manual) Monocytes # (Manual) Eosinophils # (Manual) PT INR Fibrinogen dRVVT Confirm Interp Factor V Activity POC ABG pH POC ABG pCO2 POC ABG pO2 74 L Sodium Potassium Chloride Carbon Dioxide BUN Creatinine Glucose POC Glucose 211 H 215 H Lactic Acid Calcium Phosphorus Magnesium Direct Bilirubin AST ALT Alkaline Phosphatase Lactate Dehydrogenase Troponin T C-Reactive Protein Total Protein Albumin Prealbumin Triglycerides Cholesterol LDL Cholesterol Direct HDL Cholesterol Urine pH Urine WBC (Auto) Urine Creatinine Urine Total Protein Vancomycin Trough Rheumatoid Factor Complement C4 Miscellaneous Test Crossmatch 09/10/16 09/10/16 09/10/16 05:17 05:17 11:31 WBC 15.8 H RBC 3.25 L Hgb 7.3 L Hct 22.9 L MCV 71 L MCH 23 L MCHC RDW 18.4 H Plt Count Lymph % (Auto) [place] % (Auto) Lymph # [place] # Baso # Seg Neutrophils % Seg Neuts % (Manual) 91.0 H Lymphocytes % (Manual) 4.0 L Monocytes % (Manual) Eosinophils % (Manual) Basophils % (Manual) Nucleated RBC % Seg Neutrophils # Seg Neutrophils # Man 14.4 H Lymphocytes # (Manual) 0.6 L Monocytes # (Manual) Eosinophils # (Manual) PT INR Fibrinogen dRVVT Confirm Interp Factor V Activity POC ABG pH POC ABG pCO2 POC ABG pO2 Sodium Potassium Chloride Carbon Dioxide 21 L BUN 93 H Creatinine 2.9 H Glucose 146 H POC Glucose 188 H Lactic Acid Calcium 8.1 L Phosphorus Magnesium Direct Bilirubin AST ALT Alkaline Phosphatase Lactate Dehydrogenase Troponin T C-Reactive Protein Total Protein Albumin Prealbumin Triglycerides Cholesterol LDL Cholesterol Direct HDL Cholesterol Urine pH Urine WBC (Auto) Urine Creatinine Urine Total Protein Vancomycin Trough Rheumatoid Factor Complement C4 Miscellaneous Test Crossmatch 09/10/16 09/10/16 09/10/16 13:17 17:20 23:32 WBC RBC Hgb Hct MCV MCH MCHC RDW Plt Count Lymph % (Auto) [place] % (Auto) Lymph # [place] # Baso # Seg Neutrophils % Seg Neuts % (Manual) Lymphocytes % (Manual) Monocytes % (Manual) Eosinophils % (Manual) Basophils % (Manual) Nucleated RBC % Seg Neutrophils # Seg Neutrophils # Man Lymphocytes # (Manual) Monocytes # (Manual) Eosinophils # (Manual) PT INR Fibrinogen dRVVT Confirm Interp Factor V Activity POC ABG pH POC ABG pCO2 POC ABG pO2 Sodium Potassium Chloride Carbon Dioxide BUN Creatinine Glucose POC Glucose 199 H 186 H Lactic Acid Calcium Phosphorus Magnesium Direct Bilirubin AST ALT Alkaline Phosphatase Lactate Dehydrogenase Troponin T C-Reactive Protein Total Protein Albumin Prealbumin Triglycerides Cholesterol LDL Cholesterol Direct HDL Cholesterol Urine pH Urine WBC (Auto) Urine Creatinine Urine Total Protein Vancomycin Trough Rheumatoid Factor Complement C4 Miscellaneous Test Crossmatch See Detail 09/11/16 09/11/16 09/11/16 05:10 05:10 05:17 WBC 28.4 H RBC Hgb 9.2 L Hct 29.3 L D MCV 73 L MCH 23 L MCHC RDW 18.9 H Plt Count 452 H Lymph % (Auto) [place] % (Auto) Lymph # [place] # Baso # Seg Neutrophils % Seg Neuts % (Manual) 89.5 H Lymphocytes % (Manual) 2.0 L Monocytes % (Manual) Eosinophils % (Manual) Basophils % (Manual) Nucleated RBC % Seg Neutrophils # Seg Neutrophils # Man 25.4 H Lymphocytes # (Manual) 0.6 L Monocytes # (Manual) 1.3 H Eosinophils # (Manual) PT INR Fibrinogen dRVVT Confirm Interp Factor V Activity POC ABG pH POC ABG pCO2 POC ABG pO2 Sodium 136 L Potassium Chloride Carbon Dioxide 18 L BUN 107 H Creatinine 2.6 H Glucose 187 H POC Glucose 230 H Lactic Acid Calcium 8.3 L Phosphorus Magnesium Direct Bilirubin AST ALT Alkaline Phosphatase Lactate Dehydrogenase Troponin T C-Reactive Protein Total Protein Albumin Prealbumin Triglycerides Cholesterol LDL Cholesterol Direct HDL Cholesterol Urine pH Urine WBC (Auto) Urine Creatinine Urine Total Protein Vancomycin Trough Rheumatoid Factor Complement C4 Miscellaneous Test Crossmatch 09/11/16 09/11/16 09/11/16 05:55 12:02 17:32 WBC RBC Hgb Hct MCV MCH MCHC RDW Plt Count Lymph % (Auto) [place] % (Auto) Lymph # [place] # Baso # Seg Neutrophils % Seg Neuts % (Manual) Lymphocytes % (Manual) Monocytes % (Manual) Eosinophils % (Manual) Basophils % (Manual) Nucleated RBC % Seg Neutrophils # Seg Neutrophils # Man Lymphocytes # (Manual) Monocytes # (Manual) Eosinophils # (Manual) PT INR Fibrinogen dRVVT Confirm Interp Factor V Activity POC ABG pH POC ABG pCO2 33.8 L POC ABG pO2 Sodium Potassium Chloride Carbon Dioxide BUN Creatinine Glucose POC Glucose 191 H 239 H Lactic Acid Calcium Phosphorus Magnesium Direct Bilirubin AST ALT Alkaline Phosphatase Lactate Dehydrogenase Troponin T C-Reactive Protein Total Protein Albumin Prealbumin Triglycerides Cholesterol LDL Cholesterol Direct HDL Cholesterol Urine pH Urine WBC (Auto) Urine Creatinine Urine Total Protein Vancomycin Trough Rheumatoid Factor Complement C4 Miscellaneous Test Crossmatch 09/11/16 09/12/16 09/12/16 23:52 05:09 05:32 WBC RBC Hgb Hct MCV MCH MCHC RDW Plt Count Lymph % (Auto) [place] % (Auto) Lymph # [place] # Baso # Seg Neutrophils % Seg Neuts % (Manual) Lymphocytes % (Manual) Monocytes % (Manual) Eosinophils % (Manual) Basophils % (Manual) Nucleated RBC % Seg Neutrophils # Seg Neutrophils # Man Lymphocytes # (Manual) Monocytes # (Manual) Eosinophils # (Manual) PT INR Fibrinogen dRVVT Confirm Interp Factor V Activity POC ABG pH POC ABG pCO2 34.6 L POC ABG pO2 Sodium Potassium Chloride Carbon Dioxide BUN Creatinine Glucose POC Glucose 265 H 184 H Lactic Acid Calcium Phosphorus Magnesium Direct Bilirubin AST ALT Alkaline Phosphatase Lactate Dehydrogenase Troponin T C-Reactive Protein Total Protein Albumin Prealbumin Triglycerides Cholesterol LDL Cholesterol Direct HDL Cholesterol Urine pH Urine WBC (Auto) Urine Creatinine Urine Total Protein Vancomycin Trough Rheumatoid Factor Complement C4 Miscellaneous Test Crossmatch 09/12/16 09/12/16 09/12/16 06:45 06:45 07:22 WBC 31.7 H RBC 3.54 L Hgb 8.3 L Hct 25.9 L MCV 73 L MCH 23 L MCHC RDW 18.9 H Plt Count Lymph % (Auto) [place] % (Auto) Lymph # [place] # Baso # Seg Neutrophils % Seg Neuts % (Manual) 88.5 H Lymphocytes % (Manual) 4.5 L Monocytes % (Manual) Eosinophils % (Manual) Basophils % (Manual) Nucleated RBC % Seg Neutrophils # Seg Neutrophils # Man 28.1 H Lymphocytes # (Manual) Monocytes # (Manual) 1.0 H Eosinophils # (Manual) PT INR Fibrinogen dRVVT Confirm Interp Factor V Activity POC ABG pH POC ABG pCO2 POC ABG pO2 Sodium Potassium Chloride Carbon Dioxide 20 L BUN 115 H Creatinine 2.7 H Glucose 165 H POC Glucose Lactic Acid Calcium 8.0 L Phosphorus Magnesium Direct Bilirubin AST ALT Alkaline Phosphatase Lactate Dehydrogenase Troponin T C-Reactive Protein Total Protein Albumin Prealbumin Triglycerides 217 H Cholesterol LDL Cholesterol Direct HDL Cholesterol Urine pH Urine WBC (Auto) Urine Creatinine Urine Total Protein Vancomycin Trough Rheumatoid Factor Complement C4 Miscellaneous Test Crossmatch 09/12/16 09/12/16 09/12/16 07:22 09:59 12:21 WBC RBC Hgb Hct MCV MCH MCHC RDW Plt Count Lymph % (Auto) [place] % (Auto) Lymph # [place] # Baso # Seg Neutrophils % Seg Neuts % (Manual) Lymphocytes % (Manual) Monocytes % (Manual) Eosinophils % (Manual) Basophils % (Manual) Nucleated RBC % Seg Neutrophils # Seg Neutrophils # Man Lymphocytes # (Manual) Monocytes # (Manual) Eosinophils # (Manual) PT INR Fibrinogen dRVVT Confirm Interp Positive H Factor V Activity POC ABG pH POC ABG pCO2 POC ABG pO2 Sodium Potassium Chloride Carbon Dioxide BUN Creatinine Glucose POC Glucose 224 H Lactic Acid Calcium Phosphorus Magnesium Direct Bilirubin AST ALT Alkaline Phosphatase Lactate Dehydrogenase Troponin T C-Reactive Protein 1.70 H Total Protein Albumin Prealbumin Triglycerides Cholesterol LDL Cholesterol Direct HDL Cholesterol Urine pH Urine WBC (Auto) Urine Creatinine Urine Total Protein Vancomycin Trough Rheumatoid Factor Complement C4 Miscellaneous Test Crossmatch 09/12/16 09/12/16 09/13/16 16:51 23:28 04:00 WBC 45.0 H* RBC Hgb 9.4 L Hct MCV 75 L MCH 23 L MCHC RDW 19.0 H Plt Count 470 H Lymph % (Auto) [place] % (Auto) Lymph # [place] # Baso # Seg Neutrophils % Seg Neuts % (Manual) 89.0 H Lymphocytes % (Manual) 5.0 L Monocytes % (Manual) Eosinophils % (Manual) Basophils % (Manual) Nucleated RBC % Seg Neutrophils # Seg Neutrophils # Man 40.1 H Lymphocytes # (Manual) Monocytes # (Manual) Eosinophils # (Manual) PT INR Fibrinogen dRVVT Confirm Interp Factor V Activity POC ABG pH POC ABG pCO2 POC ABG pO2 Sodium Potassium Chloride Carbon Dioxide BUN Creatinine Glucose POC Glucose 169 H 150 H Lactic Acid Calcium Phosphorus Magnesium Direct Bilirubin AST ALT Alkaline Phosphatase Lactate Dehydrogenase Troponin T C-Reactive Protein Total Protein Albumin Prealbumin Triglycerides Cholesterol LDL Cholesterol Direct HDL Cholesterol Urine pH Urine WBC (Auto) Urine Creatinine Urine Total Protein Vancomycin Trough Rheumatoid Factor Complement C4 Miscellaneous Test Crossmatch 09/13/16 09/13/16 09/13/16 04:00 11:26 17:31 WBC RBC Hgb Hct MCV MCH MCHC RDW Plt Count Lymph % (Auto) [place] % (Auto) Lymph # [place] # Baso # Seg Neutrophils % Seg Neuts % (Manual) Lymphocytes % (Manual) Monocytes % (Manual) Eosinophils % (Manual) Basophils % (Manual) Nucleated RBC % Seg Neutrophils # Seg Neutrophils # Man Lymphocytes # (Manual) Monocytes # (Manual) Eosinophils # (Manual) PT INR Fibrinogen dRVVT Confirm Interp Factor V Activity POC ABG pH POC ABG pCO2 POC ABG pO2 Sodium Potassium Chloride Carbon Dioxide 20 L BUN 116 H Creatinine 3.0 H Glucose 172 H POC Glucose 140 H 183 H Lactic Acid Calcium Phosphorus Magnesium Direct Bilirubin AST ALT Alkaline Phosphatase Lactate Dehydrogenase Troponin T C-Reactive Protein Total Protein 6.2 L Albumin 2.9 L Prealbumin Triglycerides Cholesterol LDL Cholesterol Direct HDL Cholesterol Urine pH Urine WBC (Auto) Urine Creatinine Urine Total Protein Vancomycin Trough Rheumatoid Factor Complement C4 Miscellaneous Test Crossmatch 09/13/16 09/14/16 09/14/16 23:23 04:06 04:07 WBC 29.4 H RBC Hgb 8.9 L Hct 27.3 L MCV 75 L MCH 24 L MCHC RDW 19.1 H Plt Count Lymph % (Auto) [place] % (Auto) Lymph # [place] # Baso # Seg Neutrophils % Seg Neuts % (Manual) 84.0 H Lymphocytes % (Manual) 6.0 L Monocytes % (Manual) 9.0 H Eosinophils % (Manual) Basophils % (Manual) Nucleated RBC % Seg Neutrophils # Seg Neutrophils # Man 24.7 H Lymphocytes # (Manual) Monocytes # (Manual) 2.6 H Eosinophils # (Manual) PT INR Fibrinogen dRVVT Confirm Interp Factor V Activity POC ABG pH 7.342 L POC ABG pCO2 POC ABG pO2 116 H Sodium Potassium Chloride Carbon Dioxide BUN Creatinine Glucose POC Glucose 154 H Lactic Acid Calcium Phosphorus Magnesium Direct Bilirubin AST ALT Alkaline Phosphatase Lactate Dehydrogenase Troponin T C-Reactive Protein Total Protein Albumin Prealbumin Triglycerides Cholesterol LDL Cholesterol Direct HDL Cholesterol Urine pH Urine WBC (Auto) Urine Creatinine Urine Total Protein Vancomycin Trough Rheumatoid Factor Complement C4 Miscellaneous Test Crossmatch 09/14/16 09/14/16 09/14/16 04:07 05:29 12:19 WBC RBC Hgb Hct MCV MCH MCHC RDW Plt Count Lymph % (Auto) [place] % (Auto) Lymph # [place] # Baso # Seg Neutrophils % Seg Neuts % (Manual) Lymphocytes % (Manual) Monocytes % (Manual) Eosinophils % (Manual) Basophils % (Manual) Nucleated RBC % Seg Neutrophils # Seg Neutrophils # Man Lymphocytes # (Manual) Monocytes # (Manual) Eosinophils # (Manual) PT INR Fibrinogen dRVVT Confirm Interp Factor V Activity POC ABG pH POC ABG pCO2 POC ABG pO2 Sodium 136 L Potassium Chloride Carbon Dioxide 18 L BUN 121 H Creatinine 2.8 H Glucose 214 H POC Glucose 239 H 181 H Lactic Acid Calcium Phosphorus Magnesium Direct Bilirubin AST ALT Alkaline Phosphatase Lactate Dehydrogenase Troponin T C-Reactive Protein Total Protein Albumin Prealbumin Triglycerides Cholesterol LDL Cholesterol Direct HDL Cholesterol Urine pH Urine WBC (Auto) Urine Creatinine Urine Total Protein Vancomycin Trough Rheumatoid Factor Complement C4 Miscellaneous Test Crossmatch 09/14/16 09/14/16 09/15/16 18:12 23:37 05:00 WBC 26.1 H RBC 3.05 L Hgb 7.2 L Hct 22.9 L MCV 75 L MCH 24 L MCHC RDW 19.0 H Plt Count Lymph % (Auto) [place] % (Auto) Lymph # [place] # Baso # Seg Neutrophils % Seg Neuts % (Manual) Lymphocytes % (Manual) Monocytes % (Manual) Eosinophils % (Manual) Basophils % (Manual) Nucleated RBC % Seg Neutrophils # Seg Neutrophils # Man Lymphocytes # (Manual) Monocytes # (Manual) Eosinophils # (Manual) PT INR Fibrinogen dRVVT Confirm Interp Factor V Activity POC ABG pH POC ABG pCO2 POC ABG pO2 Sodium Potassium Chloride Carbon Dioxide BUN Creatinine Glucose POC Glucose 266 H 154 H Lactic Acid Calcium Phosphorus Magnesium Direct Bilirubin AST ALT Alkaline Phosphatase Lactate Dehydrogenase Troponin T C-Reactive Protein Total Protein Albumin Prealbumin Triglycerides Cholesterol LDL Cholesterol Direct HDL Cholesterol Urine pH Urine WBC (Auto) Urine Creatinine Urine Total Protein Vancomycin Trough Rheumatoid Factor Complement C4 Miscellaneous Test Crossmatch 09/15/16 09/15/16 09/15/16 05:00 05:17 12:45 WBC RBC Hgb Hct MCV MCH MCHC RDW Plt Count Lymph % (Auto) [place] % (Auto) Lymph # [place] # Baso # Seg Neutrophils % Seg Neuts % (Manual) Lymphocytes % (Manual) Monocytes % (Manual) Eosinophils % (Manual) Basophils % (Manual) Nucleated RBC % Seg Neutrophils # Seg Neutrophils # Man Lymphocytes # (Manual) Monocytes # (Manual) Eosinophils # (Manual) PT INR Fibrinogen dRVVT Confirm Interp Factor V Activity POC ABG pH POC ABG pCO2 POC ABG pO2 Sodium Potassium 5.2 H Chloride Carbon Dioxide 18 L BUN 139 H Creatinine 3.7 H Glucose 227 H POC Glucose 226 H 244 H Lactic Acid Calcium 8.3 L Phosphorus Magnesium Direct Bilirubin AST ALT Alkaline Phosphatase Lactate Dehydrogenase Troponin T C-Reactive Protein Total Protein Albumin Prealbumin Triglycerides Cholesterol LDL Cholesterol Direct HDL Cholesterol Urine pH Urine WBC (Auto) Urine Creatinine Urine Total Protein Vancomycin Trough Rheumatoid Factor Complement C4 Miscellaneous Test Crossmatch 09/15/16 09/15/16 09/15/16 14:32 17:33 23:35 WBC RBC Hgb Hct MCV MCH MCHC RDW Plt Count Lymph % (Auto) [place] % (Auto) Lymph # [place] # Baso # Seg Neutrophils % Seg Neuts % (Manual) Lymphocytes % (Manual) Monocytes % (Manual) Eosinophils % (Manual) Basophils % (Manual) Nucleated RBC % Seg Neutrophils # Seg Neutrophils # Man Lymphocytes # (Manual) Monocytes # (Manual) Eosinophils # (Manual) PT INR Fibrinogen dRVVT Confirm Interp Factor V Activity POC ABG pH POC ABG pCO2 27.7 L POC ABG pO2 120 H Sodium Potassium Chloride Carbon Dioxide BUN Creatinine Glucose POC Glucose 232 H 167 H Lactic Acid Calcium Phosphorus Magnesium Direct Bilirubin AST ALT Alkaline Phosphatase Lactate Dehydrogenase Troponin T C-Reactive Protein Total Protein Albumin Prealbumin Triglycerides Cholesterol LDL Cholesterol Direct HDL Cholesterol Urine pH Urine WBC (Auto) Urine Creatinine Urine Total Protein Vancomycin Trough Rheumatoid Factor Complement C4 Miscellaneous Test Crossmatch 09/16/16 09/16/16 09/16/16 03:58 10:27 10:27 WBC 19.0 H RBC 2.77 L Hgb 6.5 L Hct 20.9 L MCV 76 L MCH 23 L MCHC RDW 19.3 H Plt Count Lymph % (Auto) 11.0 L [place] % (Auto) Lymph # Ramsey # 1.1 H Baso # Seg Neutrophils % 82.5 H Seg Neuts % (Manual) Lymphocytes % (Manual) Monocytes % (Manual) Eosinophils % (Manual) Basophils % (Manual) Nucleated RBC % Seg Neutrophils # 15.7 H Seg Neutrophils # Man Lymphocytes # (Manual) Monocytes # (Manual) Eosinophils # (Manual) PT INR Fibrinogen dRVVT Confirm Interp Factor V Activity POC ABG pH POC ABG pCO2 POC ABG pO2 Sodium Potassium Chloride 109.3 H Carbon Dioxide 18 L BUN 139 H Creatinine 4.1 H Glucose 144 H POC Glucose 146 H Lactic Acid Calcium 8.1 L Phosphorus Magnesium Direct Bilirubin AST ALT Alkaline Phosphatase Lactate Dehydrogenase Troponin T C-Reactive Protein Total Protein Albumin Prealbumin Triglycerides Cholesterol LDL Cholesterol Direct HDL Cholesterol Urine pH Urine WBC (Auto) Urine Creatinine Urine Total Protein Vancomycin Trough Rheumatoid Factor Complement C4 Miscellaneous Test Crossmatch 09/16/16 09/16/16 09/16/16 12:04 12:10 13:55 WBC RBC Hgb Hct MCV MCH MCHC RDW Plt Count Lymph % (Auto) [place] % (Auto) Lymph # [place] # Baso # Seg Neutrophils % Seg Neuts % (Manual) Lymphocytes % (Manual) Monocytes % (Manual) Eosinophils % (Manual) Basophils % (Manual) Nucleated RBC % Seg Neutrophils # Seg Neutrophils # Man Lymphocytes # (Manual) Monocytes # (Manual) Eosinophils # (Manual) PT INR Fibrinogen dRVVT Confirm Interp Factor V Activity POC ABG pH POC ABG pCO2 32.9 L POC ABG pO2 Sodium Potassium Chloride Carbon Dioxide BUN Creatinine Glucose POC Glucose 185 H Lactic Acid Calcium Phosphorus Magnesium Direct Bilirubin AST ALT Alkaline Phosphatase Lactate Dehydrogenase Troponin T C-Reactive Protein Total Protein Albumin Prealbumin Triglycerides Cholesterol LDL Cholesterol Direct HDL Cholesterol Urine pH Urine WBC (Auto) Urine Creatinine Urine Total Protein Vancomycin Trough Rheumatoid Factor Complement C4 Miscellaneous Test Crossmatch See Detail 09/16/16 09/16/16 09/16/16 17:55 19:19 23:48 WBC RBC Hgb Hct MCV MCH MCHC RDW Plt Count Lymph % (Auto) [place] % (Auto) Lymph # [place] # Baso # Seg Neutrophils % Seg Neuts % (Manual) Lymphocytes % (Manual) Monocytes % (Manual) Eosinophils % (Manual) Basophils % (Manual) Nucleated RBC % Seg Neutrophils # Seg Neutrophils # Man Lymphocytes # (Manual) Monocytes # (Manual) Eosinophils # (Manual) PT INR Fibrinogen dRVVT Confirm Interp Factor V Activity POC ABG pH POC ABG pCO2 POC ABG pO2 Sodium Potassium Chloride Carbon Dioxide BUN Creatinine Glucose POC Glucose 222 H 107 H Lactic Acid Calcium Phosphorus Magnesium Direct Bilirubin AST ALT Alkaline Phosphatase Lactate Dehydrogenase Troponin T C-Reactive Protein Total Protein Albumin Prealbumin Triglycerides Cholesterol LDL Cholesterol Direct HDL Cholesterol Urine pH Urine WBC (Auto) Urine Creatinine 47.4 H Urine Total Protein 16 H Vancomycin Trough Rheumatoid Factor Complement C4 Miscellaneous Test Crossmatch 09/17/16 09/17/16 09/17/16 03:45 03:45 04:55 WBC 19.6 H RBC 3.41 L Hgb 8.5 L Hct 26.7 L MCV 78 L MCH 25 L MCHC RDW 19.9 H Plt Count Lymph % (Auto) 9.3 L [place] % (Auto) Lymph # Ramsey # 1.2 H Baso # Seg Neutrophils % 83.9 H Seg Neuts % (Manual) Lymphocytes % (Manual) Monocytes % (Manual) Eosinophils % (Manual) Basophils % (Manual) Nucleated RBC % Seg Neutrophils # 16.4 H Seg Neutrophils # Man Lymphocytes # (Manual) Monocytes # (Manual) Eosinophils # (Manual) PT INR Fibrinogen dRVVT Confirm Interp Factor V Activity POC ABG pH POC ABG pCO2 POC ABG pO2 Sodium 146 H Potassium 5.1 H Chloride 110.9 H Carbon Dioxide 16 L BUN 146 H Creatinine 4.0 H Glucose 108 H POC Glucose 133 H Lactic Acid Calcium Phosphorus Magnesium 3.00 H Direct Bilirubin AST ALT Alkaline Phosphatase Lactate Dehydrogenase Troponin T C-Reactive Protein Total Protein Albumin Prealbumin Triglycerides Cholesterol LDL Cholesterol Direct HDL Cholesterol Urine pH Urine WBC (Auto) Urine Creatinine Urine Total Protein Vancomycin Trough Rheumatoid Factor Complement C4 Miscellaneous Test Crossmatch 09/17/16 09/17/16 09/17/16 11:15 17:33 23:47 WBC RBC Hgb Hct MCV MCH MCHC RDW Plt Count Lymph % (Auto) [place] % (Auto) Lymph # [place] # Baso # Seg Neutrophils % Seg Neuts % (Manual) Lymphocytes % (Manual) Monocytes % (Manual) Eosinophils % (Manual) Basophils % (Manual) Nucleated RBC % Seg Neutrophils # Seg Neutrophils # Man Lymphocytes # (Manual) Monocytes # (Manual) Eosinophils # (Manual) PT INR Fibrinogen dRVVT Confirm Interp Factor V Activity POC ABG pH POC ABG pCO2 POC ABG pO2 Sodium Potassium Chloride Carbon Dioxide BUN Creatinine Glucose POC Glucose 176 H 246 H 148 H Lactic Acid Calcium Phosphorus Magnesium Direct Bilirubin AST ALT Alkaline Phosphatase Lactate Dehydrogenase Troponin T C-Reactive Protein Total Protein Albumin Prealbumin Triglycerides Cholesterol LDL Cholesterol Direct HDL Cholesterol Urine pH Urine WBC (Auto) Urine Creatinine Urine Total Protein Vancomycin Trough Rheumatoid Factor Complement C4 Miscellaneous Test Crossmatch 09/18/16 09/18/16 09/18/16 05:33 08:31 08:31 WBC 18.0 H RBC 3.17 L Hgb 9.0 L Hct 25.7 L MCV MCH MCHC 35 H RDW 20.4 H Plt Count Lymph % (Auto) [place] % (Auto) Lymph # [place] # Baso # Seg Neutrophils % Seg Neuts % (Manual) Lymphocytes % (Manual) Monocytes % (Manual) Eosinophils % (Manual) Basophils % (Manual) Nucleated RBC % Seg Neutrophils # Seg Neutrophils # Man Lymphocytes # (Manual) Monocytes # (Manual) Eosinophils # (Manual) PT INR Fibrinogen dRVVT Confirm Interp Factor V Activity POC ABG pH POC ABG pCO2 POC ABG pO2 Sodium Potassium Chloride Carbon Dioxide 15 L BUN 124 H Creatinine 3.8 H Glucose POC Glucose 120 H Lactic Acid Calcium 8.1 L Phosphorus Magnesium Direct Bilirubin AST ALT Alkaline Phosphatase Lactate Dehydrogenase Troponin T C-Reactive Protein Total Protein Albumin Prealbumin Triglycerides Cholesterol LDL Cholesterol Direct HDL Cholesterol Urine pH Urine WBC (Auto) Urine Creatinine Urine Total Protein Vancomycin Trough Rheumatoid Factor Complement C4 Miscellaneous Test Crossmatch 09/18/16 09/18/16 09/18/16 12:03 15:34 17:50 WBC RBC Hgb Hct MCV MCH MCHC RDW Plt Count Lymph % (Auto) [place] % (Auto) Lymph # [place] # Baso # Seg Neutrophils % Seg Neuts % (Manual) Lymphocytes % (Manual) Monocytes % (Manual) Eosinophils % (Manual) Basophils % (Manual) Nucleated RBC % Seg Neutrophils # Seg Neutrophils # Man Lymphocytes # (Manual) Monocytes # (Manual) Eosinophils # (Manual) PT INR Fibrinogen dRVVT Confirm Interp Factor V Activity POC ABG pH POC ABG pCO2 25.7 L POC ABG pO2 66 L Sodium Potassium Chloride Carbon Dioxide BUN Creatinine Glucose POC Glucose 156 H 220 H Lactic Acid Calcium Phosphorus Magnesium Direct Bilirubin AST ALT Alkaline Phosphatase Lactate Dehydrogenase Troponin T C-Reactive Protein Total Protein Albumin Prealbumin Triglycerides Cholesterol LDL Cholesterol Direct HDL Cholesterol Urine pH Urine WBC (Auto) Urine Creatinine Urine Total Protein Vancomycin Trough Rheumatoid Factor Complement C4 Miscellaneous Test Crossmatch 09/19/16 09/19/16 09/19/16 06:21 09:50 09:50 WBC 17.1 H RBC 3.49 L Hgb 9.0 L Hct 28.1 L MCV MCH 26 L MCHC RDW 20.8 H Plt Count Lymph % (Auto) 11.5 L [place] % (Auto) 7.5 H Lymph # [place] # 1.3 H Baso # Seg Neutrophils % 79.8 H Seg Neuts % (Manual) Lymphocytes % (Manual) Monocytes % (Manual) Eosinophils % (Manual) Basophils % (Manual) Nucleated RBC % Seg Neutrophils # 13.7 H Seg Neutrophils # Man Lymphocytes # (Manual) Monocytes # (Manual) Eosinophils # (Manual) PT INR Fibrinogen dRVVT Confirm Interp Factor V Activity POC ABG pH POC ABG pCO2 POC ABG pO2 Sodium Potassium Chloride 108.6 H Carbon Dioxide 15 L BUN 125 H Creatinine 4.1 H Glucose 124 H POC Glucose 119 H Lactic Acid Calcium Phosphorus Magnesium Direct Bilirubin AST ALT Alkaline Phosphatase Lactate Dehydrogenase Troponin T C-Reactive Protein Total Protein Albumin Prealbumin Triglycerides Cholesterol LDL Cholesterol Direct HDL Cholesterol Urine pH Urine WBC (Auto) Urine Creatinine Urine Total Protein Vancomycin Trough Rheumatoid Factor Complement C4 Miscellaneous Test Crossmatch 09/19/16 09/19/16 09/19/16 11:25 17:53 23:36 WBC RBC Hgb Hct MCV MCH MCHC RDW Plt Count Lymph % (Auto) [place] % (Auto) Lymph # [place] # Baso # Seg Neutrophils % Seg Neuts % (Manual) Lymphocytes % (Manual) Monocytes % (Manual) Eosinophils % (Manual) Basophils % (Manual) Nucleated RBC % Seg Neutrophils # Seg Neutrophils # Man Lymphocytes # (Manual) Monocytes # (Manual) Eosinophils # (Manual) PT INR Fibrinogen dRVVT Confirm Interp Factor V Activity POC ABG pH POC ABG pCO2 POC ABG pO2 Sodium Potassium Chloride Carbon Dioxide BUN Creatinine Glucose POC Glucose 160 H 245 H 121 H Lactic Acid Calcium Phosphorus Magnesium Direct Bilirubin AST ALT Alkaline Phosphatase Lactate Dehydrogenase Troponin T C-Reactive Protein Total Protein Albumin Prealbumin Triglycerides Cholesterol LDL Cholesterol Direct HDL Cholesterol Urine pH Urine WBC (Auto) Urine Creatinine Urine Total Protein Vancomycin Trough Rheumatoid Factor Complement C4 Miscellaneous Test Crossmatch 09/20/16 09/20/16 09/20/16 04:10 04:10 04:10 WBC 17.0 H RBC 3.21 L Hgb 8.2 L Hct 25.5 L MCV MCH 26 L MCHC RDW 20.9 H Plt Count Lymph % (Auto) Ramsey % (Auto) Lymph # Ramsey # Baso # Seg Neutrophils % Seg Neuts % (Manual) Lymphocytes % (Manual) Monocytes % (Manual) Eosinophils % (Manual) Basophils % (Manual) Nucleated RBC % Seg Neutrophils # Seg Neutrophils # Man Lymphocytes # (Manual) Monocytes # (Manual) Eosinophils # (Manual) PT INR Fibrinogen dRVVT Confirm Interp Factor V Activity POC ABG pH POC ABG pCO2 POC ABG pO2 Sodium Potassium Chloride 111.0 H Carbon Dioxide 16 L BUN 129 H Creatinine 3.7 H Glucose 115 H POC Glucose Lactic Acid Calcium 8.2 L Phosphorus Magnesium Direct Bilirubin AST ALT Alkaline Phosphatase Lactate Dehydrogenase Troponin T C-Reactive Protein Total Protein Albumin Prealbumin Triglycerides 243 H Cholesterol LDL Cholesterol Direct HDL Cholesterol Urine pH Urine WBC (Auto) Urine Creatinine Urine Total Protein Vancomycin Trough Rheumatoid Factor Complement C4 Miscellaneous Test Crossmatch 09/20/16 09/20/16 09/20/16 05:40 11:52 16:50 WBC RBC Hgb Hct MCV MCH MCHC RDW Plt Count Lymph % (Auto) Ramsey % (Auto) Lymph # Ramsey # Baso # Seg Neutrophils % Seg Neuts % (Manual) Lymphocytes % (Manual) Monocytes % (Manual) Eosinophils % (Manual) Basophils % (Manual) Nucleated RBC % Seg Neutrophils # Seg Neutrophils # Man Lymphocytes # (Manual) Monocytes # (Manual) Eosinophils # (Manual) PT INR Fibrinogen dRVVT Confirm Interp Factor V Activity POC ABG pH POC ABG pCO2 POC ABG pO2 Sodium Potassium Chloride Carbon Dioxide BUN Creatinine Glucose POC Glucose 131 H 183 H 236 H Lactic Acid Calcium Phosphorus Magnesium Direct Bilirubin AST ALT Alkaline Phosphatase Lactate Dehydrogenase Troponin T C-Reactive Protein Total Protein Albumin Prealbumin Triglycerides Cholesterol LDL Cholesterol Direct HDL Cholesterol Urine pH Urine WBC (Auto) Urine Creatinine Urine Total Protein Vancomycin Trough Rheumatoid Factor Complement C4 Miscellaneous Test Crossmatch 09/20/16 09/21/16 09/21/16 23:51 03:30 04:44 WBC RBC Hgb Hct MCV MCH MCHC RDW Plt Count Lymph % (Auto) Ramsey % (Auto) Lymph # [place] # Baso # Seg Neutrophils % Seg Neuts % (Manual) Lymphocytes % (Manual) Monocytes % (Manual) Eosinophils % (Manual) Basophils % (Manual) Nucleated RBC % Seg Neutrophils # Seg Neutrophils # Man Lymphocytes # (Manual) Monocytes # (Manual) Eosinophils # (Manual) PT INR Fibrinogen dRVVT Confirm Interp Factor V Activity POC ABG pH POC ABG pCO2 POC ABG pO2 Sodium Potassium Chloride Carbon Dioxide BUN Creatinine Glucose POC Glucose 114 H 141 H Lactic Acid Calcium Phosphorus Magnesium 2.70 H Direct Bilirubin AST ALT Alkaline Phosphatase Lactate Dehydrogenase Troponin T C-Reactive Protein Total Protein Albumin Prealbumin Triglycerides Cholesterol LDL Cholesterol Direct HDL Cholesterol Urine pH Urine WBC (Auto) Urine Creatinine Urine Total Protein Vancomycin Trough Rheumatoid Factor Complement C4 Miscellaneous Test Crossmatch 09/21/16 09/21/16 09/21/16 07:45 07:45 10:01 WBC 13.8 H RBC 2.94 L Hgb 7.5 L Hct 23.5 L MCV MCH 26 L MCHC RDW 21.2 H Plt Count Lymph % (Auto) 6.9 L Ramsey % (Auto) 9.4 H Lymph # 0.9 L Ramsey # 1.3 H Baso # Seg Neutrophils % 83.2 H Seg Neuts % (Manual) Lymphocytes % (Manual) Monocytes % (Manual) Eosinophils % (Manual) Basophils % (Manual) Nucleated RBC % Seg Neutrophils # 11.5 H Seg Neutrophils # Man Lymphocytes # (Manual) Monocytes # (Manual) Eosinophils # (Manual) PT INR Fibrinogen dRVVT Confirm Interp Factor V Activity POC ABG pH 7.308 L POC ABG pCO2 31.9 L POC ABG pO2 148 H Sodium 147 H Potassium Chloride 114.2 H Carbon Dioxide 15 L BUN 120 H Creatinine 3.9 H Glucose 156 H POC Glucose Lactic Acid Calcium 8.2 L Phosphorus Magnesium Direct Bilirubin AST ALT Alkaline Phosphatase Lactate Dehydrogenase Troponin T C-Reactive Protein Total Protein Albumin Prealbumin Triglycerides Cholesterol LDL Cholesterol Direct HDL Cholesterol Urine pH Urine WBC (Auto) Urine Creatinine Urine Total Protein Vancomycin Trough Rheumatoid Factor Complement C4 Miscellaneous Test Crossmatch 09/21/16 09/21/16 09/21/16 12:00 12:03 13:00 WBC RBC Hgb Hct MCV MCH MCHC RDW Plt Count Lymph % (Auto) [place] % (Auto) Lymph # [place] # Baso # Seg Neutrophils % Seg Neuts % (Manual) Lymphocytes % (Manual) Monocytes % (Manual) Eosinophils % (Manual) Basophils % (Manual) Nucleated RBC % Seg Neutrophils # Seg Neutrophils # Man Lymphocytes # (Manual) Monocytes # (Manual) Eosinophils # (Manual) PT INR Fibrinogen dRVVT Confirm Interp Factor V Activity POC ABG pH POC ABG pCO2 POC ABG pO2 Sodium Potassium Chloride Carbon Dioxide BUN Creatinine Glucose POC Glucose 163 H Lactic Acid Calcium Phosphorus Magnesium Direct Bilirubin AST ALT Alkaline Phosphatase Lactate Dehydrogenase Troponin T C-Reactive Protein Total Protein Albumin Prealbumin Triglycerides Cholesterol LDL Cholesterol Direct HDL Cholesterol Urine pH Urine WBC (Auto) Urine Creatinine 54.8 H Urine Total Protein Vancomycin Trough 2.3 L Rheumatoid Factor Complement C4 Miscellaneous Test Crossmatch 09/21/16 09/21/16 09/22/16 16:51 23:17 06:27 WBC RBC Hgb Hct MCV MCH MCHC RDW Plt Count Lymph % (Auto) [place] % (Auto) Lymph # [place] # Baso # Seg Neutrophils % Seg Neuts % (Manual) Lymphocytes % (Manual) Monocytes % (Manual) Eosinophils % (Manual) Basophils % (Manual) Nucleated RBC % Seg Neutrophils # Seg Neutrophils # Man Lymphocytes # (Manual) Monocytes # (Manual) Eosinophils # (Manual) PT INR Fibrinogen dRVVT Confirm Interp Factor V Activity POC ABG pH POC ABG pCO2 POC ABG pO2 Sodium Potassium Chloride Carbon Dioxide BUN Creatinine Glucose POC Glucose 206 H 114 H 115 H Lactic Acid Calcium Phosphorus Magnesium Direct Bilirubin AST ALT Alkaline Phosphatase Lactate Dehydrogenase Troponin T C-Reactive Protein Total Protein Albumin Prealbumin Triglycerides Cholesterol LDL Cholesterol Direct HDL Cholesterol Urine pH Urine WBC (Auto) Urine Creatinine Urine Total Protein Vancomycin Trough Rheumatoid Factor Complement C4 Miscellaneous Test Crossmatch 09/22/16 09/22/16 09/22/16 07:50 07:50 12:00 WBC 17.8 H RBC 3.04 L Hgb 8.0 L Hct 24.7 L MCV MCH 26 L MCHC RDW 21.6 H Plt Count Lymph % (Auto) Ramsey % (Auto) Lymph # [place] # Baso # Seg Neutrophils % Seg Neuts % (Manual) Lymphocytes % (Manual) Monocytes % (Manual) Eosinophils % (Manual) Basophils % (Manual) Nucleated RBC % Seg Neutrophils # Seg Neutrophils # Man Lymphocytes # (Manual) Monocytes # (Manual) Eosinophils # (Manual) PT INR Fibrinogen dRVVT Confirm Interp Factor V Activity POC ABG pH POC ABG pCO2 POC ABG pO2 Sodium 150 H Potassium Chloride 118.2 H Carbon Dioxide 14 L BUN 111 H Creatinine 3.7 H Glucose 157 H POC Glucose 183 H Lactic Acid Calcium Phosphorus Magnesium Direct Bilirubin AST ALT Alkaline Phosphatase Lactate Dehydrogenase Troponin T C-Reactive Protein Total Protein Albumin Prealbumin Triglycerides Cholesterol LDL Cholesterol Direct HDL Cholesterol Urine pH Urine WBC (Auto) Urine Creatinine Urine Total Protein Vancomycin Trough Rheumatoid Factor Complement C4 Miscellaneous Test Crossmatch 09/22/16 09/22/16 09/23/16 17:29 23:10 05:00 WBC 19.2 H RBC 3.13 L Hgb 8.0 L Hct 25.2 L MCV MCH 26 L MCHC RDW 22.1 H Plt Count Lymph % (Auto) [place] % (Auto) Lymph # [place] # Baso # Seg Neutrophils % Seg Neuts % (Manual) 92.0 H Lymphocytes % (Manual) 3.0 L Monocytes % (Manual) Eosinophils % (Manual) Basophils % (Manual) Nucleated RBC % Seg Neutrophils # Seg Neutrophils # Man 17.7 H Lymphocytes # (Manual) 0.6 L Monocytes # (Manual) Eosinophils # (Manual) PT INR Fibrinogen dRVVT Confirm Interp Factor V Activity POC ABG pH POC ABG pCO2 POC ABG pO2 Sodium Potassium Chloride Carbon Dioxide BUN Creatinine Glucose POC Glucose 197 H 169 H Lactic Acid Calcium Phosphorus Magnesium Direct Bilirubin AST ALT Alkaline Phosphatase Lactate Dehydrogenase Troponin T C-Reactive Protein Total Protein Albumin Prealbumin Triglycerides Cholesterol LDL Cholesterol Direct HDL Cholesterol Urine pH Urine WBC (Auto) Urine Creatinine Urine Total Protein Vancomycin Trough Rheumatoid Factor Complement C4 Miscellaneous Test Crossmatch 09/23/16 09/23/16 09/23/16 05:00 05:00 05:10 WBC RBC Hgb Hct MCV MCH MCHC RDW Plt Count Lymph % (Auto) [place] % (Auto) Lymph # [place] # Baso # Seg Neutrophils % Seg Neuts % (Manual) Lymphocytes % (Manual) Monocytes % (Manual) Eosinophils % (Manual) Basophils % (Manual) Nucleated RBC % Seg Neutrophils # Seg Neutrophils # Man Lymphocytes # (Manual) Monocytes # (Manual) Eosinophils # (Manual) PT INR Fibrinogen dRVVT Confirm Interp Factor V Activity POC ABG pH POC ABG pCO2 POC ABG pO2 Sodium 147 H Potassium 3.2 L Chloride 115.7 H Carbon Dioxide 13 L BUN 111 H Creatinine 3.8 H Glucose 194 H POC Glucose 188 H Lactic Acid Calcium 7.3 L D Phosphorus Magnesium Direct Bilirubin AST ALT Alkaline Phosphatase Lactate Dehydrogenase Troponin T C-Reactive Protein 3.20 H Total Protein Albumin Prealbumin Triglycerides Cholesterol LDL Cholesterol Direct HDL Cholesterol Urine pH Urine WBC (Auto) Urine Creatinine Urine Total Protein Vancomycin Trough Rheumatoid Factor Complement C4 Miscellaneous Test Crossmatch 09/23/16 09/23/16 09/23/16 11:37 12:29 18:01 WBC RBC Hgb Hct MCV MCH MCHC RDW Plt Count Lymph % (Auto) [place] % (Auto) Lymph # [place] # Baso # Seg Neutrophils % Seg Neuts % (Manual) Lymphocytes % (Manual) Monocytes % (Manual) Eosinophils % (Manual) Basophils % (Manual) Nucleated RBC % Seg Neutrophils # Seg Neutrophils # Man Lymphocytes # (Manual) Monocytes # (Manual) Eosinophils # (Manual) PT INR Fibrinogen dRVVT Confirm Interp Factor V Activity POC ABG pH POC ABG pCO2 18.9 L POC ABG pO2 143 H Sodium Potassium Chloride Carbon Dioxide BUN Creatinine Glucose POC Glucose 153 H 108 H Lactic Acid Calcium Phosphorus Magnesium Direct Bilirubin AST ALT Alkaline Phosphatase Lactate Dehydrogenase Troponin T C-Reactive Protein Total Protein Albumin Prealbumin Triglycerides Cholesterol LDL Cholesterol Direct HDL Cholesterol Urine pH Urine WBC (Auto) Urine Creatinine Urine Total Protein Vancomycin Trough Rheumatoid Factor Complement C4 Miscellaneous Test Crossmatch 09/23/16 09/23/16 09/24/16 21:19 23:43 05:16 WBC RBC Hgb Hct MCV MCH MCHC RDW Plt Count Lymph % (Auto) [place] % (Auto) Lymph # [place] # Baso # Seg Neutrophils % Seg Neuts % (Manual) Lymphocytes % (Manual) Monocytes % (Manual) Eosinophils % (Manual) Basophils % (Manual) Nucleated RBC % Seg Neutrophils # Seg Neutrophils # Man Lymphocytes # (Manual) Monocytes # (Manual) Eosinophils # (Manual) PT INR Fibrinogen dRVVT Confirm Interp Factor V Activity POC ABG pH POC ABG pCO2 17.3 L POC ABG pO2 112 H Sodium Potassium Chloride Carbon Dioxide BUN Creatinine Glucose POC Glucose 143 H 164 H Lactic Acid Calcium Phosphorus Magnesium Direct Bilirubin AST ALT Alkaline Phosphatase Lactate Dehydrogenase Troponin T C-Reactive Protein Total Protein Albumin Prealbumin Triglycerides Cholesterol LDL Cholesterol Direct HDL Cholesterol Urine pH Urine WBC (Auto) Urine Creatinine Urine Total Protein Vancomycin Trough Rheumatoid Factor Complement C4 Miscellaneous Test Crossmatch 09/24/16 09/24/16 09/24/16 05:21 11:58 17:06 WBC RBC Hgb Hct MCV MCH MCHC RDW Plt Count Lymph % (Auto) [place] % (Auto) Lymph # [place] # Baso # Seg Neutrophils % Seg Neuts % (Manual) Lymphocytes % (Manual) Monocytes % (Manual) Eosinophils % (Manual) Basophils % (Manual) Nucleated RBC % Seg Neutrophils # Seg Neutrophils # Man Lymphocytes # (Manual) Monocytes # (Manual) Eosinophils # (Manual) PT INR Fibrinogen dRVVT Confirm Interp Factor V Activity POC ABG pH POC ABG pCO2 POC ABG pO2 Sodium Potassium Chloride Carbon Dioxide 10 L BUN 103 H Creatinine 4.3 H Glucose 163 H POC Glucose 173 H 167 H Lactic Acid Calcium 6.5 L Phosphorus Magnesium Direct Bilirubin AST ALT Alkaline Phosphatase Lactate Dehydrogenase Troponin T C-Reactive Protein Total Protein Albumin Prealbumin Triglycerides Cholesterol LDL Cholesterol Direct HDL Cholesterol Urine pH Urine WBC (Auto) Urine Creatinine Urine Total Protein Vancomycin Trough Rheumatoid Factor Complement C4 Miscellaneous Test Crossmatch 09/24/16 09/24/16 09/24/16 20:15 21:02 23:48 WBC RBC Hgb Hct MCV MCH MCHC RDW Plt Count Lymph % (Auto) [place] % (Auto) Lymph # [place] # Baso # Seg Neutrophils % Seg Neuts % (Manual) Lymphocytes % (Manual) Monocytes % (Manual) Eosinophils % (Manual) Basophils % (Manual) Nucleated RBC % Seg Neutrophils # Seg Neutrophils # Man Lymphocytes # (Manual) Monocytes # (Manual) Eosinophils # (Manual) PT INR Fibrinogen dRVVT Confirm Interp Factor V Activity POC ABG pH 7.288 L POC ABG pCO2 30.2 L 21.5 L POC ABG pO2 32 L 39 L Sodium Potassium Chloride Carbon Dioxide BUN Creatinine Glucose POC Glucose 109 H Lactic Acid Calcium Phosphorus Magnesium Direct Bilirubin AST ALT Alkaline Phosphatase Lactate Dehydrogenase Troponin T C-Reactive Protein Total Protein Albumin Prealbumin Triglycerides Cholesterol LDL Cholesterol Direct HDL Cholesterol Urine pH Urine WBC (Auto) Urine Creatinine Urine Total Protein Vancomycin Trough Rheumatoid Factor Complement C4 Miscellaneous Test Crossmatch 09/25/16 09/25/16 09/25/16 04:20 04:20 04:20 WBC RBC 2.58 L Hgb 7.0 L Hct 21.0 L MCV MCH 27 L MCHC RDW 23.8 H Plt Count Lymph % (Auto) Ramsey % (Auto) Lymph # [place] # Baso # Seg Neutrophils % Seg Neuts % (Manual) Lymphocytes % (Manual) 12.0 L Monocytes % (Manual) Eosinophils % (Manual) 7.0 H Basophils % (Manual) 2.0 H Nucleated RBC % Seg Neutrophils # Seg Neutrophils # Man Lymphocytes # (Manual) 0.9 L Monocytes # (Manual) Eosinophils # (Manual) 0.5 H PT INR Fibrinogen dRVVT Confirm Interp Factor V Activity POC ABG pH POC ABG pCO2 POC ABG pO2 Sodium Potassium Chloride Carbon Dioxide 15 L BUN 72 H Creatinine 3.8 H Glucose POC Glucose Lactic Acid Calcium 6.0 L Phosphorus 4.60 H Magnesium 1.60 L Direct Bilirubin AST ALT Alkaline Phosphatase Lactate Dehydrogenase Troponin T C-Reactive Protein Total Protein Albumin Prealbumin Triglycerides Cholesterol LDL Cholesterol Direct HDL Cholesterol Urine pH Urine WBC (Auto) Urine Creatinine Urine Total Protein Vancomycin Trough Rheumatoid Factor Complement C4 Miscellaneous Test Crossmatch 09/25/16 09/25/16 09/25/16 04:57 08:02 10:30 WBC RBC Hgb Hct MCV MCH MCHC RDW Plt Count Lymph % (Auto) [place] % (Auto) Lymph # [place] # Baso # Seg Neutrophils % Seg Neuts % (Manual) Lymphocytes % (Manual) Monocytes % (Manual) Eosinophils % (Manual) Basophils % (Manual) Nucleated RBC % Seg Neutrophils # Seg Neutrophils # Man Lymphocytes # (Manual) Monocytes # (Manual) Eosinophils # (Manual) PT INR Fibrinogen dRVVT Confirm Interp Factor V Activity POC ABG pH POC ABG pCO2 24.7 L POC ABG pO2 152 H Sodium Potassium Chloride Carbon Dioxide BUN Creatinine Glucose POC Glucose 113 H Lactic Acid Calcium Phosphorus Magnesium Direct Bilirubin AST ALT Alkaline Phosphatase Lactate Dehydrogenase Troponin T C-Reactive Protein Total Protein Albumin Prealbumin Triglycerides Cholesterol LDL Cholesterol Direct HDL Cholesterol Urine pH Urine WBC (Auto) Urine Creatinine Urine Total Protein Vancomycin Trough Rheumatoid Factor Complement C4 Miscellaneous Test Crossmatch See Detail 09/25/16 09/25/16 09/25/16 12:05 17:44 23:47 WBC RBC Hgb Hct MCV MCH MCHC RDW Plt Count Lymph % (Auto) [place] % (Auto) Lymph # [place] # Baso # Seg Neutrophils % Seg Neuts % (Manual) Lymphocytes % (Manual) Monocytes % (Manual) Eosinophils % (Manual) Basophils % (Manual) Nucleated RBC % Seg Neutrophils # Seg Neutrophils # Man Lymphocytes # (Manual) Monocytes # (Manual) Eosinophils # (Manual) PT INR Fibrinogen dRVVT Confirm Interp Factor V Activity POC ABG pH POC ABG pCO2 POC ABG pO2 Sodium Potassium Chloride Carbon Dioxide BUN Creatinine Glucose POC Glucose 117 H 119 H 150 H Lactic Acid Calcium Phosphorus Magnesium Direct Bilirubin AST ALT Alkaline Phosphatase Lactate Dehydrogenase Troponin T C-Reactive Protein Total Protein Albumin Prealbumin Triglycerides Cholesterol LDL Cholesterol Direct HDL Cholesterol Urine pH Urine WBC (Auto) Urine Creatinine Urine Total Protein Vancomycin Trough Rheumatoid Factor Complement C4 Miscellaneous Test Crossmatch 09/26/16 09/26/16 09/26/16 04:25 04:25 04:25 WBC RBC 2.65 L Hgb 7.4 L Hct 21.6 L MCV MCH MCHC RDW 22.5 H Plt Count Lymph % (Auto) [place] % (Auto) Lymph # [place] # Baso # Seg Neutrophils % Seg Neuts % (Manual) Lymphocytes % (Manual) 6.0 L Monocytes % (Manual) Eosinophils % (Manual) 11.0 H Basophils % (Manual) Nucleated RBC % Seg Neutrophils # Seg Neutrophils # Man Lymphocytes # (Manual) 0.4 L Monocytes # (Manual) Eosinophils # (Manual) 0.6 H PT INR Fibrinogen dRVVT Confirm Interp Factor V Activity POC ABG pH POC ABG pCO2 POC ABG pO2 Sodium Potassium Chloride 97.0 L Carbon Dioxide 19 L BUN 43 H Creatinine 2.6 H Glucose 130 H POC Glucose Lactic Acid 4.40 H* Calcium 6.7 L Phosphorus Magnesium Direct Bilirubin AST ALT Alkaline Phosphatase Lactate Dehydrogenase Troponin T C-Reactive Protein Total Protein Albumin Prealbumin Triglycerides Cholesterol LDL Cholesterol Direct HDL Cholesterol Urine pH Urine WBC (Auto) Urine Creatinine Urine Total Protein Vancomycin Trough Rheumatoid Factor Complement C4 Miscellaneous Test Crossmatch 09/26/16 09/26/16 09/26/16 05:20 11:44 12:12 WBC RBC Hgb Hct MCV MCH MCHC RDW Plt Count Lymph % (Auto) [place] % (Auto) Lymph # [place] # Baso # Seg Neutrophils % Seg Neuts % (Manual) Lymphocytes % (Manual) Monocytes % (Manual) Eosinophils % (Manual) Basophils % (Manual) Nucleated RBC % Seg Neutrophils # Seg Neutrophils # Man Lymphocytes # (Manual) Monocytes # (Manual) Eosinophils # (Manual) PT INR Fibrinogen dRVVT Confirm Interp Factor V Activity POC ABG pH POC ABG pCO2 27.0 L POC ABG pO2 69 L Sodium Potassium Chloride Carbon Dioxide BUN Creatinine Glucose POC Glucose 121 H 128 H Lactic Acid Calcium Phosphorus Magnesium Direct Bilirubin AST ALT Alkaline Phosphatase Lactate Dehydrogenase Troponin T C-Reactive Protein Total Protein Albumin Prealbumin Triglycerides Cholesterol LDL Cholesterol Direct HDL Cholesterol Urine pH Urine WBC (Auto) Urine Creatinine Urine Total Protein Vancomycin Trough Rheumatoid Factor Complement C4 Miscellaneous Test Crossmatch 09/26/16 09/26/16 09/27/16 18:31 23:40 08:20 WBC RBC Hgb Hct MCV MCH MCHC RDW Plt Count Lymph % (Auto) [place] % (Auto) Lymph # [place] # Baso # Seg Neutrophils % Seg Neuts % (Manual) Lymphocytes % (Manual) Monocytes % (Manual) Eosinophils % (Manual) Basophils % (Manual) Nucleated RBC % Seg Neutrophils # Seg Neutrophils # Man Lymphocytes # (Manual) Monocytes # (Manual) Eosinophils # (Manual) PT INR Fibrinogen dRVVT Confirm Interp Factor V Activity POC ABG pH POC ABG pCO2 POC ABG pO2 Sodium Potassium Chloride Carbon Dioxide BUN Creatinine Glucose POC Glucose 120 H 133 H Lactic Acid 4.10 H* Calcium Phosphorus Magnesium Direct Bilirubin AST ALT Alkaline Phosphatase Lactate Dehydrogenase Troponin T C-Reactive Protein Total Protein Albumin Prealbumin Triglycerides Cholesterol LDL Cholesterol Direct HDL Cholesterol Urine pH Urine WBC (Auto) Urine Creatinine Urine Total Protein Vancomycin Trough Rheumatoid Factor Complement C4 Miscellaneous Test Crossmatch 09/27/16 09/27/16 09/27/16 11:23 15:00 18:15 WBC RBC Hgb Hct MCV MCH MCHC RDW Plt Count Lymph % (Auto) [place] % (Auto) Lymph # [place] # Baso # Seg Neutrophils % Seg Neuts % (Manual) Lymphocytes % (Manual) Monocytes % (Manual) Eosinophils % (Manual) Basophils % (Manual) Nucleated RBC % Seg Neutrophils # Seg Neutrophils # Man Lymphocytes # (Manual) Monocytes # (Manual) Eosinophils # (Manual) PT INR Fibrinogen dRVVT Confirm Interp Factor V Activity POC ABG pH 7.459 H POC ABG pCO2 27.1 L POC ABG pO2 140 H Sodium Potassium Chloride Carbon Dioxide BUN Creatinine Glucose POC Glucose 114 H 127 H Lactic Acid Calcium Phosphorus Magnesium Direct Bilirubin AST ALT Alkaline Phosphatase Lactate Dehydrogenase Troponin T C-Reactive Protein Total Protein Albumin Prealbumin Triglycerides Cholesterol LDL Cholesterol Direct HDL Cholesterol Urine pH Urine WBC (Auto) Urine Creatinine Urine Total Protein Vancomycin Trough Rheumatoid Factor Complement C4 Miscellaneous Test Crossmatch 09/27/16 09/27/16 09/28/16 Unknown Unknown 03:45 WBC RBC 2.49 L Hgb 6.8 L Hct 20.7 L MCV MCH 27 L MCHC RDW 22.1 H Plt Count Lymph % (Auto) [place] % (Auto) Lymph # [place] # Baso # Seg Neutrophils % Seg Neuts % (Manual) 32.0 L Lymphocytes % (Manual) 12.0 L Monocytes % (Manual) 11.0 H Eosinophils % (Manual) 10.0 H Basophils % (Manual) Nucleated RBC % Seg Neutrophils # Seg Neutrophils # Man Lymphocytes # (Manual) 1.0 L Monocytes # (Manual) 0.9 H Eosinophils # (Manual) 0.8 H PT INR Fibrinogen dRVVT Confirm Interp Factor V Activity POC ABG pH POC ABG pCO2 POC ABG pO2 Sodium 135 L 135 L Potassium 3.5 L Chloride 93.6 L 94.4 L Carbon Dioxide 17 L 21 L BUN 45 H 28 H Creatinine 3.3 H 2.5 H Glucose 106 H POC Glucose Lactic Acid Calcium 7.3 L 7.1 L Phosphorus Magnesium Direct Bilirubin AST ALT Alkaline Phosphatase Lactate Dehydrogenase Troponin T C-Reactive Protein Total Protein Albumin Prealbumin Triglycerides Cholesterol LDL Cholesterol Direct HDL Cholesterol Urine pH Urine WBC (Auto) Urine Creatinine Urine Total Protein Vancomycin Trough Rheumatoid Factor Complement C4 Miscellaneous Test Crossmatch 09/28/16 09/28/16 09/28/16 03:45 07:25 11:58 WBC 13.3 H RBC 3.01 L Hgb 8.4 L Hct 25.0 L MCV MCH MCHC RDW 20.5 H Plt Count 128 L Lymph % (Auto) [place] % (Auto) Lymph # [place] # Baso # Seg Neutrophils % Seg Neuts % (Manual) Lymphocytes % (Manual) 7.0 L Monocytes % (Manual) Eosinophils % (Manual) 6.0 H Basophils % (Manual) Nucleated RBC % Seg Neutrophils # Seg Neutrophils # Man Lymphocytes # (Manual) 0.9 L Monocytes # (Manual) Eosinophils # (Manual) 0.8 H PT INR Fibrinogen dRVVT Confirm Interp Factor V Activity POC ABG pH POC ABG pCO2 POC ABG pO2 Sodium Potassium Chloride Carbon Dioxide BUN Creatinine Glucose POC Glucose 121 H Lactic Acid 4.50 H* Calcium Phosphorus Magnesium Direct Bilirubin AST ALT Alkaline Phosphatase Lactate Dehydrogenase Troponin T C-Reactive Protein Total Protein Albumin Prealbumin Triglycerides Cholesterol LDL Cholesterol Direct HDL Cholesterol Urine pH Urine WBC (Auto) Urine Creatinine Urine Total Protein Vancomycin Trough Rheumatoid Factor Complement C4 Miscellaneous Test Crossmatch 09/29/16 09/29/16 09/29/16 06:45 06:45 06:45 WBC 14.9 H RBC 2.74 L Hgb 7.6 L Hct 23.2 L MCV MCH MCHC RDW 20.5 H Plt Count 81 L Lymph % (Auto) Ramsey % (Auto) Lymph # [place] # Baso # Seg Neutrophils % Seg Neuts % (Manual) 81.0 H Lymphocytes % (Manual) 4.0 L Monocytes % (Manual) Eosinophils % (Manual) Basophils % (Manual) Nucleated RBC % Seg Neutrophils # Seg Neutrophils # Man 12.1 H Lymphocytes # (Manual) 0.6 L Monocytes # (Manual) Eosinophils # (Manual) PT INR Fibrinogen dRVVT Confirm Interp Factor V Activity POC ABG pH POC ABG pCO2 POC ABG pO2 Sodium 133 L Potassium 3.4 L Chloride 92.5 L Carbon Dioxide 21 L BUN 33 H Creatinine 3.0 H Glucose POC Glucose Lactic Acid Calcium 6.6 L Phosphorus Magnesium 1.40 L Direct Bilirubin 0.9 H AST ALT Alkaline Phosphatase Lactate Dehydrogenase Troponin T C-Reactive Protein Total Protein 4.3 L Albumin 1.3 L Prealbumin Triglycerides Cholesterol LDL Cholesterol Direct HDL Cholesterol Urine pH Urine WBC (Auto) Urine Creatinine Urine Total Protein Vancomycin Trough Rheumatoid Factor Complement C4 Miscellaneous Test Crossmatch 09/29/16 09/29/16 09/30/16 17:52 20:12 00:07 WBC RBC Hgb Hct MCV MCH MCHC RDW Plt Count Lymph % (Auto) [place] % (Auto) Lymph # [place] # Baso # Seg Neutrophils % Seg Neuts % (Manual) Lymphocytes % (Manual) Monocytes % (Manual) Eosinophils % (Manual) Basophils % (Manual) Nucleated RBC % Seg Neutrophils # Seg Neutrophils # Man Lymphocytes # (Manual) Monocytes # (Manual) Eosinophils # (Manual) PT INR Fibrinogen dRVVT Confirm Interp Factor V Activity POC ABG pH POC ABG pCO2 POC ABG pO2 Sodium Potassium Chloride Carbon Dioxide BUN Creatinine Glucose POC Glucose 50 L 51 L Lactic Acid Calcium Phosphorus Magnesium Direct Bilirubin AST ALT Alkaline Phosphatase Lactate Dehydrogenase Troponin T 0.204 H* C-Reactive Protein Total Protein Albumin Prealbumin Triglycerides Cholesterol 31 L LDL Cholesterol Direct 4 L HDL Cholesterol 3 L Urine pH Urine WBC (Auto) Urine Creatinine Urine Total Protein Vancomycin Trough Rheumatoid Factor Complement C4 Miscellaneous Test Crossmatch 09/30/16 09/30/16 09/30/16 01:30 05:15 06:10 WBC RBC Hgb Hct MCV MCH MCHC RDW Plt Count Lymph % (Auto) Ramsey % (Auto) Lymph # Ramsey # Baso # Seg Neutrophils % Seg Neuts % (Manual) Lymphocytes % (Manual) Monocytes % (Manual) Eosinophils % (Manual) Basophils % (Manual) Nucleated RBC % Seg Neutrophils # Seg Neutrophils # Man Lymphocytes # (Manual) Monocytes # (Manual) Eosinophils # (Manual) PT INR Fibrinogen dRVVT Confirm Interp Factor V Activity POC ABG pH POC ABG pCO2 POC ABG pO2 Sodium 133 L Potassium 3.2 L Chloride 93.2 L Carbon Dioxide 19 L BUN 36 H Creatinine 3.2 H Glucose 104 H POC Glucose 167 H 146 H Lactic Acid Calcium 6.4 L Phosphorus Magnesium 1.60 L Direct Bilirubin AST ALT Alkaline Phosphatase Lactate Dehydrogenase Troponin T C-Reactive Protein Total Protein Albumin Prealbumin Triglycerides Cholesterol LDL Cholesterol Direct HDL Cholesterol Urine pH Urine WBC (Auto) Urine Creatinine Urine Total Protein Vancomycin Trough Rheumatoid Factor Complement C4 Miscellaneous Test Crossmatch 09/30/16 09/30/16 09/30/16 11:26 13:39 18:38 WBC RBC Hgb Hct MCV MCH MCHC RDW Plt Count Lymph % (Auto) Ramsey % (Auto) Lymph # Ramsey # Baso # Seg Neutrophils % Seg Neuts % (Manual) Lymphocytes % (Manual) Monocytes % (Manual) Eosinophils % (Manual) Basophils % (Manual) Nucleated RBC % Seg Neutrophils # Seg Neutrophils # Man Lymphocytes # (Manual) Monocytes # (Manual) Eosinophils # (Manual) PT INR Fibrinogen dRVVT Confirm Interp Factor V Activity POC ABG pH 7.479 H POC ABG pCO2 29.8 L POC ABG pO2 117 H Sodium Potassium Chloride Carbon Dioxide BUN Creatinine Glucose POC Glucose 140 H 122 H Lactic Acid Calcium Phosphorus Magnesium Direct Bilirubin AST ALT Alkaline Phosphatase Lactate Dehydrogenase Troponin T C-Reactive Protein Total Protein Albumin Prealbumin Triglycerides Cholesterol LDL Cholesterol Direct HDL Cholesterol Urine pH Urine WBC (Auto) Urine Creatinine Urine Total Protein Vancomycin Trough Rheumatoid Factor Complement C4 Miscellaneous Test Crossmatch 10/01/16 10/01/16 10/01/16 06:00 06:00 12:37 WBC 12.6 H RBC 2.75 L Hgb 7.3 L Hct 23.3 L MCV MCH 27 L MCHC RDW 20.6 H Plt Count 72 L Lymph % (Auto) Ramsey % (Auto) Lymph # Ramsey # Baso # Seg Neutrophils % Seg Neuts % (Manual) 31.0 L Lymphocytes % (Manual) 8.0 L Monocytes % (Manual) Eosinophils % (Manual) Basophils % (Manual) Nucleated RBC % 3.0 H Seg Neutrophils # Seg Neutrophils # Man Lymphocytes # (Manual) 1.0 L Monocytes # (Manual) Eosinophils # (Manual) PT INR Fibrinogen dRVVT Confirm Interp Factor V Activity POC ABG pH POC ABG pCO2 POC ABG pO2 Sodium 127 L Potassium Chloride 86.8 L Carbon Dioxide 20 L BUN 42 H Creatinine 3.5 H Glucose POC Glucose 65 L Lactic Acid Calcium 7.0 L Phosphorus Magnesium Direct Bilirubin AST ALT Alkaline Phosphatase Lactate Dehydrogenase Troponin T C-Reactive Protein Total Protein Albumin Prealbumin Triglycerides Cholesterol LDL Cholesterol Direct HDL Cholesterol Urine pH Urine WBC (Auto) Urine Creatinine Urine Total Protein Vancomycin Trough Rheumatoid Factor Complement C4 Miscellaneous Test Crossmatch 10/01/16 10/01/16 10/02/16 17:39 23:32 00:59 WBC RBC Hgb Hct MCV MCH MCHC RDW Plt Count Lymph % (Auto) Ramsey % (Auto) Lymph # [place] # Baso # Seg Neutrophils % Seg Neuts % (Manual) Lymphocytes % (Manual) Monocytes % (Manual) Eosinophils % (Manual) Basophils % (Manual) Nucleated RBC % Seg Neutrophils # Seg Neutrophils # Man Lymphocytes # (Manual) Monocytes # (Manual) Eosinophils # (Manual) PT INR Fibrinogen dRVVT Confirm Interp Factor V Activity POC ABG pH POC ABG pCO2 POC ABG pO2 Sodium Potassium Chloride Carbon Dioxide BUN Creatinine Glucose POC Glucose 107 H 52 L 145 H Lactic Acid Calcium Phosphorus Magnesium Direct Bilirubin AST ALT Alkaline Phosphatase Lactate Dehydrogenase Troponin T C-Reactive Protein Total Protein Albumin Prealbumin Triglycerides Cholesterol LDL Cholesterol Direct HDL Cholesterol Urine pH Urine WBC (Auto) Urine Creatinine Urine Total Protein Vancomycin Trough Rheumatoid Factor Complement C4 Miscellaneous Test Crossmatch 10/02/16 10/02/16 10/02/16 10:30 10:50 10:50 WBC 14.7 H RBC 2.76 L Hgb 7.4 L Hct 23.6 L MCV MCH 27 L MCHC RDW 20.2 H Plt Count 79 L Lymph % (Auto) Ramsey % (Auto) Lymph # Ramsey # Baso # Seg Neutrophils % Seg Neuts % (Manual) 86.0 H Lymphocytes % (Manual) 6.0 L Monocytes % (Manual) Eosinophils % (Manual) Basophils % (Manual) Nucleated RBC % Seg Neutrophils # Seg Neutrophils # Man 12.6 H Lymphocytes # (Manual) 0.9 L Monocytes # (Manual) Eosinophils # (Manual) PT INR Fibrinogen dRVVT Confirm Interp Factor V Activity POC ABG pH 7.486 H POC ABG pCO2 30.1 L POC ABG pO2 108 H Sodium 131 L Potassium 3.4 L Chloride 89.9 L Carbon Dioxide BUN 26 H Creatinine 2.6 H Glucose POC Glucose Lactic Acid Calcium 7.0 L Phosphorus Magnesium Direct Bilirubin AST ALT Alkaline Phosphatase Lactate Dehydrogenase Troponin T C-Reactive Protein Total Protein Albumin Prealbumin Triglycerides Cholesterol LDL Cholesterol Direct HDL Cholesterol Urine pH Urine WBC (Auto) Urine Creatinine Urine Total Protein Vancomycin Trough Rheumatoid Factor Complement C4 Miscellaneous Test Crossmatch 10/02/16 10/03/16 10/03/16 23:45 00:45 05:10 WBC 12.9 H RBC 2.77 L Hgb 7.6 L Hct 23.7 L MCV MCH 27 L MCHC RDW 19.7 H Plt Count 89 L Lymph % (Auto) Ramsey % (Auto) Lymph # [place] # Baso # Seg Neutrophils % Seg Neuts % (Manual) Lymphocytes % (Manual) 8.0 L Monocytes % (Manual) Eosinophils % (Manual) Basophils % (Manual) Nucleated RBC % Seg Neutrophils # 11.9 H Seg Neutrophils # Man Lymphocytes # (Manual) 1.0 L Monocytes # (Manual) Eosinophils # (Manual) PT INR Fibrinogen dRVVT Confirm Interp Factor V Activity POC ABG pH POC ABG pCO2 POC ABG pO2 Sodium Potassium Chloride Carbon Dioxide BUN Creatinine Glucose POC Glucose 55 L 199 H Lactic Acid Calcium Phosphorus Magnesium Direct Bilirubin AST ALT Alkaline Phosphatase Lactate Dehydrogenase Troponin T C-Reactive Protein Total Protein Albumin Prealbumin Triglycerides Cholesterol LDL Cholesterol Direct HDL Cholesterol Urine pH Urine WBC (Auto) Urine Creatinine Urine Total Protein Vancomycin Trough Rheumatoid Factor Complement C4 Miscellaneous Test Crossmatch 10/03/16 10/03/16 10/03/16 05:10 12:14 13:18 WBC RBC Hgb Hct MCV MCH MCHC RDW Plt Count Lymph % (Auto) Ramsey % (Auto) Lymph # [place] # Baso # Seg Neutrophils % Seg Neuts % (Manual) Lymphocytes % (Manual) Monocytes % (Manual) Eosinophils % (Manual) Basophils % (Manual) Nucleated RBC % Seg Neutrophils # Seg Neutrophils # Man Lymphocytes # (Manual) Monocytes # (Manual) Eosinophils # (Manual) PT INR Fibrinogen dRVVT Confirm Interp Factor V Activity POC ABG pH POC ABG pCO2 POC ABG pO2 Sodium 129 L Potassium 3.3 L Chloride 88.8 L Carbon Dioxide 20 L BUN 29 H Creatinine 2.8 H Glucose POC Glucose 68 L 127 H Lactic Acid Calcium 7.2 L Phosphorus Magnesium Direct Bilirubin AST ALT Alkaline Phosphatase Lactate Dehydrogenase Troponin T C-Reactive Protein Total Protein Albumin Prealbumin Triglycerides Cholesterol LDL Cholesterol Direct HDL Cholesterol Urine pH Urine WBC (Auto) Urine Creatinine Urine Total Protein Vancomycin Trough Rheumatoid Factor Complement C4 Miscellaneous Test Crossmatch 10/03/16 10/03/16 10/03/16 14:42 18:21 19:09 WBC RBC Hgb Hct MCV MCH MCHC RDW Plt Count Lymph % (Auto) Ramsey % (Auto) Lymph # [place] # Baso # Seg Neutrophils % Seg Neuts % (Manual) Lymphocytes % (Manual) Monocytes % (Manual) Eosinophils % (Manual) Basophils % (Manual) Nucleated RBC % Seg Neutrophils # Seg Neutrophils # Man Lymphocytes # (Manual) Monocytes # (Manual) Eosinophils # (Manual) PT INR Fibrinogen dRVVT Confirm Interp Factor V Activity POC ABG pH 7.499 H POC ABG pCO2 28.4 L POC ABG pO2 44 L Sodium Potassium Chloride Carbon Dioxide BUN Creatinine Glucose POC Glucose 64 L 205 H Lactic Acid Calcium Phosphorus Magnesium Direct Bilirubin AST ALT Alkaline Phosphatase Lactate Dehydrogenase Troponin T C-Reactive Protein Total Protein Albumin Prealbumin Triglycerides Cholesterol LDL Cholesterol Direct HDL Cholesterol Urine pH Urine WBC (Auto) Urine Creatinine Urine Total Protein Vancomycin Trough Rheumatoid Factor Complement C4 Miscellaneous Test Crossmatch 10/03/16 10/04/16 10/04/16 23:33 04:18 06:30 WBC RBC 2.54 L Hgb 7.1 L Hct 21.7 L MCV MCH MCHC RDW 19.5 H Plt Count 76 L Lymph % (Auto) Ramsey % (Auto) Lymph # [place] # Baso # Seg Neutrophils % Seg Neuts % (Manual) 88.0 H Lymphocytes % (Manual) 6.0 L Monocytes % (Manual) Eosinophils % (Manual) Basophils % (Manual) Nucleated RBC % Seg Neutrophils # Seg Neutrophils # Man 8.8 H Lymphocytes # (Manual) 0.6 L Monocytes # (Manual) Eosinophils # (Manual) PT INR Fibrinogen dRVVT Confirm Interp Factor V Activity POC ABG pH 7.461 H POC ABG pCO2 33.6 L POC ABG pO2 211 H Sodium Potassium Chloride Carbon Dioxide BUN Creatinine Glucose POC Glucose 136 H Lactic Acid Calcium Phosphorus Magnesium Direct Bilirubin AST ALT Alkaline Phosphatase Lactate Dehydrogenase Troponin T C-Reactive Protein Total Protein Albumin Prealbumin Triglycerides Cholesterol LDL Cholesterol Direct HDL Cholesterol Urine pH Urine WBC (Auto) Urine Creatinine Urine Total Protein Vancomycin Trough Rheumatoid Factor Complement C4 Miscellaneous Test Crossmatch 10/04/16 10/04/16 10/04/16 06:30 11:45 17:54 WBC RBC Hgb Hct MCV MCH MCHC RDW Plt Count Lymph % (Auto) Ramsey % (Auto) Lymph # [place] # Baso # Seg Neutrophils % Seg Neuts % (Manual) Lymphocytes % (Manual) Monocytes % (Manual) Eosinophils % (Manual) Basophils % (Manual) Nucleated RBC % Seg Neutrophils # Seg Neutrophils # Man Lymphocytes # (Manual) Monocytes # (Manual) Eosinophils # (Manual) PT INR Fibrinogen dRVVT Confirm Interp Factor V Activity POC ABG pH POC ABG pCO2 POC ABG pO2 Sodium 128 L Potassium Chloride 87.4 L Carbon Dioxide 20 L BUN 34 H Creatinine 2.9 H Glucose 127 H POC Glucose 158 H 160 H Lactic Acid Calcium 7.4 L Phosphorus Magnesium Direct Bilirubin AST ALT Alkaline Phosphatase Lactate Dehydrogenase Troponin T C-Reactive Protein Total Protein Albumin Prealbumin Triglycerides Cholesterol LDL Cholesterol Direct HDL Cholesterol Urine pH Urine WBC (Auto) Urine Creatinine Urine Total Protein Vancomycin Trough Rheumatoid Factor Complement C4 Miscellaneous Test Crossmatch 10/04/16 10/05/16 10/05/16 23:25 04:30 05:00 WBC RBC 2.64 L Hgb 7.5 L Hct 22.6 L MCV MCH MCHC RDW 19.3 H Plt Count 80 L Lymph % (Auto) Ramsey % (Auto) Lymph # [place] # Baso # Seg Neutrophils % Seg Neuts % (Manual) Lymphocytes % (Manual) 12.0 L Monocytes % (Manual) Eosinophils % (Manual) Basophils % (Manual) Nucleated RBC % Seg Neutrophils # Seg Neutrophils # Man Lymphocytes # (Manual) Monocytes # (Manual) Eosinophils # (Manual) PT INR Fibrinogen dRVVT Confirm Interp Factor V Activity POC ABG pH 7.475 H POC ABG pCO2 33.3 L POC ABG pO2 140 H Sodium Potassium Chloride Carbon Dioxide BUN Creatinine Glucose POC Glucose 141 H Lactic Acid Calcium Phosphorus Magnesium Direct Bilirubin AST ALT Alkaline Phosphatase Lactate Dehydrogenase Troponin T C-Reactive Protein Total Protein Albumin Prealbumin Triglycerides Cholesterol LDL Cholesterol Direct HDL Cholesterol Urine pH Urine WBC (Auto) Urine Creatinine Urine Total Protein Vancomycin Trough Rheumatoid Factor Complement C4 Miscellaneous Test Crossmatch 10/05/16 10/05/16 10/05/16 05:00 05:09 12:58 WBC RBC Hgb Hct MCV MCH MCHC RDW Plt Count Lymph % (Auto) Ramsey % (Auto) Lymph # [place] # Baso # Seg Neutrophils % Seg Neuts % (Manual) Lymphocytes % (Manual) Monocytes % (Manual) Eosinophils % (Manual) Basophils % (Manual) Nucleated RBC % Seg Neutrophils # Seg Neutrophils # Man Lymphocytes # (Manual) Monocytes # (Manual) Eosinophils # (Manual) PT INR Fibrinogen dRVVT Confirm Interp Factor V Activity POC ABG pH POC ABG pCO2 POC ABG pO2 Sodium 131 L Potassium Chloride 94.0 L Carbon Dioxide 20 L BUN 22 H Creatinine 2.0 H Glucose 123 H POC Glucose 166 H 179 H Lactic Acid Calcium 7.7 L Phosphorus 2.20 L D Magnesium Direct Bilirubin AST ALT Alkaline Phosphatase Lactate Dehydrogenase Troponin T C-Reactive Protein Total Protein Albumin Prealbumin Triglycerides Cholesterol LDL Cholesterol Direct HDL Cholesterol Urine pH Urine WBC (Auto) Urine Creatinine Urine Total Protein Vancomycin Trough Rheumatoid Factor Complement C4 Miscellaneous Test Crossmatch 10/05/16 10/05/16 10/05/16 15:50 18:53 23:12 WBC RBC Hgb Hct MCV MCH MCHC RDW Plt Count Lymph % (Auto) Ramsey % (Auto) Lymph # [place] # Baso # Seg Neutrophils % Seg Neuts % (Manual) Lymphocytes % (Manual) Monocytes % (Manual) Eosinophils % (Manual) Basophils % (Manual) Nucleated RBC % Seg Neutrophils # Seg Neutrophils # Man Lymphocytes # (Manual) Monocytes # (Manual) Eosinophils # (Manual) PT INR Fibrinogen dRVVT Confirm Interp Factor V Activity POC ABG pH POC ABG pCO2 POC ABG pO2 Sodium Potassium Chloride Carbon Dioxide BUN Creatinine Glucose POC Glucose 150 H 164 H Lactic Acid Calcium Phosphorus Magnesium Direct Bilirubin AST ALT Alkaline Phosphatase Lactate Dehydrogenase Troponin T C-Reactive Protein Total Protein Albumin Prealbumin Triglycerides Cholesterol LDL Cholesterol Direct HDL Cholesterol Urine pH Urine WBC (Auto) Urine Creatinine Urine Total Protein Vancomycin Trough Rheumatoid Factor Complement C4 Miscellaneous Test Crossmatch See Detail 10/06/16 10/06/16 10/06/16 03:50 03:50 04:53 WBC RBC 3.00 L Hgb 8.6 L Hct 25.8 L MCV MCH MCHC RDW 17.9 H Plt Count 65 L Lymph % (Auto) Ramsey % (Auto) Lymph # Ramsey # Baso # Seg Neutrophils % Seg Neuts % (Manual) 30.0 L Lymphocytes % (Manual) 5.0 L Monocytes % (Manual) Eosinophils % (Manual) Basophils % (Manual) Nucleated RBC % Seg Neutrophils # Seg Neutrophils # Man Lymphocytes # (Manual) 0.4 L Monocytes # (Manual) Eosinophils # (Manual) PT INR Fibrinogen dRVVT Confirm Interp Factor V Activity POC ABG pH 7.310 L POC ABG pCO2 49.0 H POC ABG pO2 Sodium 133 L Potassium Chloride 95.9 L Carbon Dioxide BUN 26 H Creatinine 2.0 H Glucose 116 H POC Glucose Lactic Acid Calcium 7.8 L Phosphorus Magnesium Direct Bilirubin AST ALT Alkaline Phosphatase Lactate Dehydrogenase Troponin T C-Reactive Protein Total Protein Albumin Prealbumin Triglycerides Cholesterol LDL Cholesterol Direct HDL Cholesterol Urine pH Urine WBC (Auto) Urine Creatinine Urine Total Protein Vancomycin Trough Rheumatoid Factor Complement C4 Miscellaneous Test Crossmatch 10/06/16 10/06/16 10/06/16 05:23 11:52 18:34 WBC RBC Hgb Hct MCV MCH MCHC RDW Plt Count Lymph % (Auto) Ramsey % (Auto) Lymph # [place] # Baso # Seg Neutrophils % Seg Neuts % (Manual) Lymphocytes % (Manual) Monocytes % (Manual) Eosinophils % (Manual) Basophils % (Manual) Nucleated RBC % Seg Neutrophils # Seg Neutrophils # Man Lymphocytes # (Manual) Monocytes # (Manual) Eosinophils # (Manual) PT INR Fibrinogen dRVVT Confirm Interp Factor V Activity POC ABG pH POC ABG pCO2 POC ABG pO2 Sodium Potassium Chloride Carbon Dioxide BUN Creatinine Glucose POC Glucose 126 H 116 H 129 H Lactic Acid Calcium Phosphorus Magnesium Direct Bilirubin AST ALT Alkaline Phosphatase Lactate Dehydrogenase Troponin T C-Reactive Protein Total Protein Albumin Prealbumin Triglycerides Cholesterol LDL Cholesterol Direct HDL Cholesterol Urine pH Urine WBC (Auto) Urine Creatinine Urine Total Protein Vancomycin Trough Rheumatoid Factor Complement C4 Miscellaneous Test Crossmatch 10/07/16 10/07/16 10/07/16 03:45 05:00 10:00 WBC 17.0 H RBC 2.68 L Hgb 7.3 L Hct 25.3 L MCV MCH 27 L MCHC 29 L RDW 19.6 H Plt Count 74 L Lymph % (Auto) Ramsey % (Auto) Lymph # [place] # Baso # Seg Neutrophils % Seg Neuts % (Manual) Lymphocytes % (Manual) 12.0 L Monocytes % (Manual) Eosinophils % (Manual) Basophils % (Manual) Nucleated RBC % 4.0 H Seg Neutrophils # Seg Neutrophils # Man 10.7 H Lymphocytes # (Manual) Monocytes # (Manual) Eosinophils # (Manual) PT INR Fibrinogen dRVVT Confirm Interp Factor V Activity POC ABG pH POC ABG pCO2 POC ABG pO2 Sodium 130 L Potassium 3.2 L Chloride 93.9 L Carbon Dioxide 20 L BUN 44 H Creatinine 2.7 H Glucose 129 H POC Glucose Lactic Acid Calcium 7.4 L Phosphorus Magnesium Direct Bilirubin AST ALT 6 L Alkaline Phosphatase 195 H Lactate Dehydrogenase Troponin T C-Reactive Protein Total Protein 4.9 L Albumin 1.0 L Prealbumin Triglycerides Cholesterol LDL Cholesterol Direct HDL Cholesterol Urine pH Urine WBC (Auto) Urine Creatinine Urine Total Protein Vancomycin Trough Rheumatoid Factor Complement C4 Miscellaneous Test Flexitest 1 H Crossmatch 10/07/16 10/07/16 10/07/16 10:00 11:24 18:10 WBC RBC Hgb Hct MCV MCH MCHC RDW Plt Count Lymph % (Auto) [place] % (Auto) Lymph # [place] # Baso # Seg Neutrophils % Seg Neuts % (Manual) Lymphocytes % (Manual) Monocytes % (Manual) Eosinophils % (Manual) Basophils % (Manual) Nucleated RBC % Seg Neutrophils # Seg Neutrophils # Man Lymphocytes # (Manual) Monocytes # (Manual) Eosinophils # (Manual) PT INR Fibrinogen dRVVT Confirm Interp Factor V Activity POC ABG pH POC ABG pCO2 POC ABG pO2 Sodium Potassium Chloride Carbon Dioxide BUN Creatinine Glucose POC Glucose 116 H 130 H Lactic Acid Calcium Phosphorus Magnesium Direct Bilirubin AST ALT Alkaline Phosphatase Lactate Dehydrogenase Troponin T C-Reactive Protein 19.40 H Total Protein Albumin Prealbumin Triglycerides Cholesterol LDL Cholesterol Direct HDL Cholesterol Urine pH Urine WBC (Auto) Urine Creatinine Urine Total Protein Vancomycin Trough Rheumatoid Factor Complement C4 Miscellaneous Test Crossmatch 10/07/16 10/08/16 10/08/16 18:30 00:00 04:00 WBC RBC Hgb Hct MCV MCH MCHC RDW Plt Count Lymph % (Auto) [place] % (Auto) Lymph # [place] # Baso # Seg Neutrophils % Seg Neuts % (Manual) Lymphocytes % (Manual) Monocytes % (Manual) Eosinophils % (Manual) Basophils % (Manual) Nucleated RBC % Seg Neutrophils # Seg Neutrophils # Man Lymphocytes # (Manual) Monocytes # (Manual) Eosinophils # (Manual) PT INR Fibrinogen dRVVT Confirm Interp Factor V Activity POC ABG pH POC ABG pCO2 POC ABG pO2 Sodium 132 L Potassium 3.3 L Chloride 93.6 L Carbon Dioxide 17 L BUN 59 H Creatinine 2.7 H Glucose 121 H POC Glucose 122 H Lactic Acid Calcium 7.6 L Phosphorus Magnesium Direct Bilirubin AST ALT Alkaline Phosphatase Lactate Dehydrogenase Troponin T C-Reactive Protein Total Protein Albumin Prealbumin Triglycerides Cholesterol LDL Cholesterol Direct HDL Cholesterol Urine pH Urine WBC (Auto) > 182.0 H Urine Creatinine Urine Total Protein Vancomycin Trough Rheumatoid Factor Complement C4 Miscellaneous Test Crossmatch 10/08/16 10/08/16 10/08/16 04:30 05:30 11:51 WBC RBC 5.15 H Hgb 14.4 H D Hct 44.5 H D MCV MCH MCHC RDW 19.5 H Plt Count 56 L Lymph % (Auto) Ramsey % (Auto) Lymph # [place] # Baso # Seg Neutrophils % Seg Neuts % (Manual) 24.0 L Lymphocytes % (Manual) 8.0 L Monocytes % (Manual) Eosinophils % (Manual) Basophils % (Manual) Nucleated RBC % 9.0 H Seg Neutrophils # Seg Neutrophils # Man Lymphocytes # (Manual) 0.7 L Monocytes # (Manual) Eosinophils # (Manual) PT INR Fibrinogen dRVVT Confirm Interp Factor V Activity POC ABG pH POC ABG pCO2 POC ABG pO2 Sodium Potassium Chloride Carbon Dioxide BUN Creatinine Glucose POC Glucose 125 H 150 H Lactic Acid Calcium Phosphorus Magnesium Direct Bilirubin AST ALT Alkaline Phosphatase Lactate Dehydrogenase Troponin T C-Reactive Protein Total Protein Albumin Prealbumin Triglycerides Cholesterol LDL Cholesterol Direct HDL Cholesterol Urine pH Urine WBC (Auto) Urine Creatinine Urine Total Protein Vancomycin Trough Rheumatoid Factor Complement C4 Miscellaneous Test Crossmatch 10/08/16 10/08/16 10/08/16 12:49 17:07 19:30 WBC RBC Hgb 7.1 L D Hct 22.4 L D MCV MCH MCHC RDW Plt Count Lymph % (Auto) [place] % (Auto) Lymph # [place] # Baso # Seg Neutrophils % Seg Neuts % (Manual) Lymphocytes % (Manual) Monocytes % (Manual) Eosinophils % (Manual) Basophils % (Manual) Nucleated RBC % Seg Neutrophils # Seg Neutrophils # Man Lymphocytes # (Manual) Monocytes # (Manual) Eosinophils # (Manual) PT INR Fibrinogen dRVVT Confirm Interp Factor V Activity POC ABG pH POC ABG pCO2 28.2 L POC ABG pO2 111 H Sodium Potassium Chloride Carbon Dioxide BUN Creatinine Glucose POC Glucose 145 H Lactic Acid Calcium Phosphorus Magnesium Direct Bilirubin AST ALT Alkaline Phosphatase Lactate Dehydrogenase Troponin T C-Reactive Protein Total Protein Albumin Prealbumin Triglycerides Cholesterol LDL Cholesterol Direct HDL Cholesterol Urine pH Urine WBC (Auto) Urine Creatinine Urine Total Protein Vancomycin Trough Rheumatoid Factor Complement C4 Miscellaneous Test Crossmatch 10/08/16 10/09/16 10/09/16 19:30 03:45 03:45 WBC 12.6 H RBC 2.36 L Hgb 6.7 L Hct 21.1 L MCV MCH MCHC RDW 19.5 H Plt Count 75 L Lymph % (Auto) [place] % (Auto) Lymph # [place] # Baso # Seg Neutrophils % Seg Neuts % (Manual) Lymphocytes % (Manual) Monocytes % (Manual) 10.0 H Eosinophils % (Manual) Basophils % (Manual) Nucleated RBC % 3.0 H Seg Neutrophils # Seg Neutrophils # Man Lymphocytes # (Manual) Monocytes # (Manual) 1.3 H Eosinophils # (Manual) PT 18.0 H INR 1.41 H Fibrinogen dRVVT Confirm Interp Factor V Activity POC ABG pH POC ABG pCO2 POC ABG pO2 Sodium 135 L Potassium Chloride Carbon Dioxide 17 L BUN 81 H Creatinine 3.2 H Glucose 109 H POC Glucose Lactic Acid Calcium 7.4 L Phosphorus 4.60 H D Magnesium Direct Bilirubin AST ALT Alkaline Phosphatase Lactate Dehydrogenase Troponin T C-Reactive Protein Total Protein Albumin Prealbumin Triglycerides Cholesterol LDL Cholesterol Direct HDL Cholesterol Urine pH Urine WBC (Auto) Urine Creatinine Urine Total Protein Vancomycin Trough Rheumatoid Factor Complement C4 Miscellaneous Test Crossmatch 10/09/16 10/09/16 10/09/16 03:45 05:14 07:20 WBC RBC Hgb Hct MCV MCH MCHC RDW Plt Count Lymph % (Auto) [place] % (Auto) Lymph # [place] # Baso # Seg Neutrophils % Seg Neuts % (Manual) Lymphocytes % (Manual) Monocytes % (Manual) Eosinophils % (Manual) Basophils % (Manual) Nucleated RBC % Seg Neutrophils # Seg Neutrophils # Man Lymphocytes # (Manual) Monocytes # (Manual) Eosinophils # (Manual) PT 19.0 H INR 1.51 H Fibrinogen dRVVT Confirm Interp Factor V Activity POC ABG pH POC ABG pCO2 POC ABG pO2 Sodium Potassium Chloride Carbon Dioxide BUN Creatinine Glucose POC Glucose 151 H Lactic Acid Calcium Phosphorus Magnesium Direct Bilirubin AST ALT Alkaline Phosphatase Lactate Dehydrogenase Troponin T C-Reactive Protein Total Protein Albumin Prealbumin Triglycerides Cholesterol LDL Cholesterol Direct HDL Cholesterol Urine pH Urine WBC (Auto) Urine Creatinine Urine Total Protein Vancomycin Trough Rheumatoid Factor Complement C4 Miscellaneous Test Crossmatch See Detail 10/09/16 10/09/16 10/09/16 11:46 16:20 16:43 WBC RBC Hgb 7.2 L Hct 22.2 L MCV MCH MCHC RDW Plt Count Lymph % (Auto) [place] % (Auto) Lymph # [place] # Baso # Seg Neutrophils % Seg Neuts % (Manual) Lymphocytes % (Manual) Monocytes % (Manual) Eosinophils % (Manual) Basophils % (Manual) Nucleated RBC % Seg Neutrophils # Seg Neutrophils # Man Lymphocytes # (Manual) Monocytes # (Manual) Eosinophils # (Manual) PT INR Fibrinogen dRVVT Confirm Interp Factor V Activity POC ABG pH POC ABG pCO2 POC ABG pO2 Sodium Potassium Chloride Carbon Dioxide BUN Creatinine Glucose POC Glucose 133 H 141 H Lactic Acid Calcium Phosphorus Magnesium Direct Bilirubin AST ALT Alkaline Phosphatase Lactate Dehydrogenase Troponin T C-Reactive Protein Total Protein Albumin Prealbumin Triglycerides Cholesterol LDL Cholesterol Direct HDL Cholesterol Urine pH Urine WBC (Auto) Urine Creatinine Urine Total Protein Vancomycin Trough Rheumatoid Factor Complement C4 Miscellaneous Test Crossmatch 10/10/16 10/10/16 10/10/16 05:00 05:00 11:19 WBC 18.5 H RBC 2.19 L Hgb 6.4 L Hct 19.6 L* MCV MCH MCHC RDW 19.3 H Plt Count 93 L Lymph % (Auto) [place] % (Auto) Lymph # [place] # Baso # Seg Neutrophils % Seg Neuts % (Manual) Lymphocytes % (Manual) 10.0 L Monocytes % (Manual) Eosinophils % (Manual) Basophils % (Manual) Nucleated RBC % 4.0 H Seg Neutrophils # Seg Neutrophils # Man 11.3 H Lymphocytes # (Manual) Monocytes # (Manual) Eosinophils # (Manual) PT INR Fibrinogen dRVVT Confirm Interp Factor V Activity POC ABG pH POC ABG pCO2 POC ABG pO2 Sodium Potassium 5.7 H D Chloride Carbon Dioxide 16 L BUN 94 H Creatinine 3.1 H Glucose 131 H POC Glucose 153 H Lactic Acid Calcium 8.2 L Phosphorus 5.10 H Magnesium 2.40 H Direct Bilirubin 0.3 H AST ALT < 5 L Alkaline Phosphatase 319 H Lactate Dehydrogenase Troponin T C-Reactive Protein Total Protein 5.1 L Albumin 1.0 L Prealbumin Triglycerides Cholesterol LDL Cholesterol Direct HDL Cholesterol Urine pH Urine WBC (Auto) Urine Creatinine Urine Total Protein Vancomycin Trough Rheumatoid Factor Complement C4 Miscellaneous Test Crossmatch 10/10/16 10/10/16 10/11/16 17:50 23:30 04:15 WBC RBC Hgb Hct MCV MCH MCHC RDW Plt Count Lymph % (Auto) Ramsey % (Auto) Lymph # Ramsey # Baso # Seg Neutrophils % Seg Neuts % (Manual) Lymphocytes % (Manual) Monocytes % (Manual) Eosinophils % (Manual) Basophils % (Manual) Nucleated RBC % Seg Neutrophils # Seg Neutrophils # Man Lymphocytes # (Manual) Monocytes # (Manual) Eosinophils # (Manual) PT INR Fibrinogen dRVVT Confirm Interp Factor V Activity POC ABG pH POC ABG pCO2 POC ABG pO2 Sodium Potassium Chloride 96.4 L Carbon Dioxide 21 L BUN 57 H Creatinine 2.1 H Glucose 151 H POC Glucose 146 H 141 H Lactic Acid Calcium 8.3 L Phosphorus Magnesium Direct Bilirubin AST ALT Alkaline Phosphatase Lactate Dehydrogenase Troponin T C-Reactive Protein Total Protein Albumin Prealbumin Triglycerides Cholesterol LDL Cholesterol Direct HDL Cholesterol Urine pH Urine WBC (Auto) Urine Creatinine Urine Total Protein Vancomycin Trough Rheumatoid Factor Complement C4 Miscellaneous Test Crossmatch 10/11/16 10/11/16 10/11/16 04:15 04:15 05:30 WBC 28.3 H RBC 3.12 L Hgb 9.3 L Hct 28.7 L D MCV MCH MCHC RDW 17.7 H Plt Count 128 L Lymph % (Auto) [place] % (Auto) Lymph # [place] # Baso # Seg Neutrophils % Seg Neuts % (Manual) Lymphocytes % (Manual) Monocytes % (Manual) Eosinophils % (Manual) Basophils % (Manual) Nucleated RBC % Seg Neutrophils # Seg Neutrophils # Man Lymphocytes # (Manual) Monocytes # (Manual) Eosinophils # (Manual) PT INR Fibrinogen dRVVT Confirm Interp Factor V Activity POC ABG pH POC ABG pCO2 POC ABG pO2 Sodium Potassium Chloride Carbon Dioxide BUN Creatinine Glucose POC Glucose 167 H Lactic Acid Calcium Phosphorus Magnesium Direct Bilirubin AST ALT Alkaline Phosphatase Lactate Dehydrogenase Troponin T C-Reactive Protein 15.80 H Total Protein Albumin Prealbumin Triglycerides Cholesterol LDL Cholesterol Direct HDL Cholesterol Urine pH Urine WBC (Auto) Urine Creatinine Urine Total Protein Vancomycin Trough Rheumatoid Factor Complement C4 Miscellaneous Test Crossmatch 10/11/16 10/11/16 10/11/16 11:40 15:49 23:57 WBC RBC Hgb Hct MCV MCH MCHC RDW Plt Count Lymph % (Auto) [place] % (Auto) Lymph # [place] # Baso # Seg Neutrophils % Seg Neuts % (Manual) Lymphocytes % (Manual) Monocytes % (Manual) Eosinophils % (Manual) Basophils % (Manual) Nucleated RBC % Seg Neutrophils # Seg Neutrophils # Man Lymphocytes # (Manual) Monocytes # (Manual) Eosinophils # (Manual) PT INR Fibrinogen dRVVT Confirm Interp Factor V Activity POC ABG pH POC ABG pCO2 POC ABG pO2 Sodium Potassium Chloride Carbon Dioxide BUN Creatinine Glucose POC Glucose 139 H 168 H 161 H Lactic Acid Calcium Phosphorus Magnesium Direct Bilirubin AST ALT Alkaline Phosphatase Lactate Dehydrogenase Troponin T C-Reactive Protein Total Protein Albumin Prealbumin Triglycerides Cholesterol LDL Cholesterol Direct HDL Cholesterol Urine pH Urine WBC (Auto) Urine Creatinine Urine Total Protein Vancomycin Trough Rheumatoid Factor Complement C4 Miscellaneous Test Crossmatch 10/12/16 10/12/16 10/12/16 04:40 04:40 05:44 WBC 22.5 H RBC 2.88 L Hgb 8.8 L Hct 26.8 L MCV MCH MCHC RDW 17.8 H Plt Count Lymph % (Auto) [place] % (Auto) Lymph # [place] # Baso # Seg Neutrophils % Seg Neuts % (Manual) Lymphocytes % (Manual) Monocytes % (Manual) Eosinophils % (Manual) Basophils % (Manual) Nucleated RBC % Seg Neutrophils # Seg Neutrophils # Man Lymphocytes # (Manual) Monocytes # (Manual) Eosinophils # (Manual) PT INR Fibrinogen dRVVT Confirm Interp Factor V Activity POC ABG pH POC ABG pCO2 POC ABG pO2 Sodium 134 L Potassium Chloride 93.0 L Carbon Dioxide BUN 74 H Creatinine 2.5 H Glucose 137 H POC Glucose 158 H Lactic Acid Calcium 8.2 L Phosphorus Magnesium Direct Bilirubin AST ALT Alkaline Phosphatase Lactate Dehydrogenase Troponin T C-Reactive Protein Total Protein Albumin Prealbumin Triglycerides Cholesterol LDL Cholesterol Direct HDL Cholesterol Urine pH Urine WBC (Auto) Urine Creatinine Urine Total Protein Vancomycin Trough Rheumatoid Factor Complement C4 Miscellaneous Test Crossmatch 10/12/16 10/12/16 10/12/16 12:27 18:18 23:46 WBC RBC Hgb Hct MCV MCH MCHC RDW Plt Count Lymph % (Auto) [place] % (Auto) Lymph # [place] # Baso # Seg Neutrophils % Seg Neuts % (Manual) Lymphocytes % (Manual) Monocytes % (Manual) Eosinophils % (Manual) Basophils % (Manual) Nucleated RBC % Seg Neutrophils # Seg Neutrophils # Man Lymphocytes # (Manual) Monocytes # (Manual) Eosinophils # (Manual) PT INR Fibrinogen dRVVT Confirm Interp Factor V Activity POC ABG pH POC ABG pCO2 POC ABG pO2 Sodium Potassium Chloride Carbon Dioxide BUN Creatinine Glucose POC Glucose 153 H 140 H 150 H Lactic Acid Calcium Phosphorus Magnesium Direct Bilirubin AST ALT Alkaline Phosphatase Lactate Dehydrogenase Troponin T C-Reactive Protein Total Protein Albumin Prealbumin Triglycerides Cholesterol LDL Cholesterol Direct HDL Cholesterol Urine pH Urine WBC (Auto) Urine Creatinine Urine Total Protein Vancomycin Trough Rheumatoid Factor Complement C4 Miscellaneous Test Crossmatch 10/13/16 10/13/16 10/13/16 06:22 09:20 12:29 WBC RBC Hgb Hct MCV MCH MCHC RDW Plt Count Lymph % (Auto) [place] % (Auto) Lymph # [place] # Baso # Seg Neutrophils % Seg Neuts % (Manual) Lymphocytes % (Manual) Monocytes % (Manual) Eosinophils % (Manual) Basophils % (Manual) Nucleated RBC % Seg Neutrophils # Seg Neutrophils # Man Lymphocytes # (Manual) Monocytes # (Manual) Eosinophils # (Manual) PT INR Fibrinogen dRVVT Confirm Interp Factor V Activity POC ABG pH POC ABG pCO2 POC ABG pO2 Sodium Potassium Chloride Carbon Dioxide BUN Creatinine Glucose POC Glucose 165 H 193 H Lactic Acid Calcium Phosphorus Magnesium Direct Bilirubin AST ALT Alkaline Phosphatase Lactate Dehydrogenase Troponin T C-Reactive Protein Total Protein Albumin Prealbumin Triglycerides Cholesterol LDL Cholesterol Direct HDL Cholesterol Urine pH Urine WBC (Auto) Urine Creatinine Urine Total Protein Vancomycin Trough Rheumatoid Factor Complement C4 Miscellaneous Test Flexitest 1 H Crossmatch 10/13/16 10/13/16 10/13/16 18:09 Unknown Unknown WBC 23.4 H RBC 2.83 L Hgb 8.7 L Hct 26.1 L MCV MCH MCHC RDW 18.1 H Plt Count Lymph % (Auto) [place] % (Auto) Lymph # [place] # Baso # Seg Neutrophils % Seg Neuts % (Manual) Lymphocytes % (Manual) Monocytes % (Manual) Eosinophils % (Manual) Basophils % (Manual) Nucleated RBC % Seg Neutrophils # Seg Neutrophils # Man Lymphocytes # (Manual) Monocytes # (Manual) Eosinophils # (Manual) PT INR Fibrinogen dRVVT Confirm Interp Factor V Activity POC ABG pH POC ABG pCO2 POC ABG pO2 Sodium Potassium Chloride 95.8 L Carbon Dioxide BUN 82 H Creatinine 2.6 H Glucose 152 H POC Glucose 166 H Lactic Acid Calcium Phosphorus Magnesium Direct Bilirubin AST ALT Alkaline Phosphatase Lactate Dehydrogenase Troponin T C-Reactive Protein Total Protein Albumin Prealbumin Triglycerides Cholesterol LDL Cholesterol Direct HDL Cholesterol Urine pH Urine WBC (Auto) Urine Creatinine Urine Total Protein Vancomycin Trough Rheumatoid Factor Complement C4 Miscellaneous Test Crossmatch 10/14/16 10/14/16 10/14/16 05:38 06:35 08:10 WBC 20.7 H RBC 2.81 L Hgb 8.4 L Hct 27.2 L MCV MCH MCHC RDW 19.4 H Plt Count Lymph % (Auto) [place] % (Auto) Lymph # [place] # Baso # Seg Neutrophils % Seg Neuts % (Manual) Lymphocytes % (Manual) Monocytes % (Manual) Eosinophils % (Manual) Basophils % (Manual) Nucleated RBC % Seg Neutrophils # Seg Neutrophils # Man Lymphocytes # (Manual) Monocytes # (Manual) Eosinophils # (Manual) PT INR Fibrinogen dRVVT Confirm Interp Factor V Activity POC ABG pH POC ABG pCO2 POC ABG pO2 Sodium Potassium Chloride Carbon Dioxide BUN 58 H Creatinine 1.9 H Glucose 169 H POC Glucose 195 H Lactic Acid Calcium Phosphorus Magnesium Direct Bilirubin AST ALT Alkaline Phosphatase Lactate Dehydrogenase Troponin T C-Reactive Protein Total Protein Albumin Prealbumin Triglycerides Cholesterol LDL Cholesterol Direct HDL Cholesterol Urine pH Urine WBC (Auto) Urine Creatinine Urine Total Protein Vancomycin Trough Rheumatoid Factor Complement C4 Miscellaneous Test Crossmatch 10/14/16 10/14/16 10/14/16 11:44 17:13 23:28 WBC RBC Hgb Hct MCV MCH MCHC RDW Plt Count Lymph % (Auto) [place] % (Auto) Lymph # [place] # Baso # Seg Neutrophils % Seg Neuts % (Manual) Lymphocytes % (Manual) Monocytes % (Manual) Eosinophils % (Manual) Basophils % (Manual) Nucleated RBC % Seg Neutrophils # Seg Neutrophils # Man Lymphocytes # (Manual) Monocytes # (Manual) Eosinophils # (Manual) PT INR Fibrinogen dRVVT Confirm Interp Factor V Activity POC ABG pH POC ABG pCO2 POC ABG pO2 Sodium Potassium Chloride Carbon Dioxide BUN Creatinine Glucose POC Glucose 174 H 121 H 151 H Lactic Acid Calcium Phosphorus Magnesium Direct Bilirubin AST ALT Alkaline Phosphatase Lactate Dehydrogenase Troponin T C-Reactive Protein Total Protein Albumin Prealbumin Triglycerides Cholesterol LDL Cholesterol Direct HDL Cholesterol Urine pH Urine WBC (Auto) Urine Creatinine Urine Total Protein Vancomycin Trough Rheumatoid Factor Complement C4 Miscellaneous Test Crossmatch 10/15/16 10/15/16 10/15/16 05:06 12:26 17:48 WBC RBC Hgb Hct MCV MCH MCHC RDW Plt Count Lymph % (Auto) [place] % (Auto) Lymph # [place] # Baso # Seg Neutrophils % Seg Neuts % (Manual) Lymphocytes % (Manual) Monocytes % (Manual) Eosinophils % (Manual) Basophils % (Manual) Nucleated RBC % Seg Neutrophils # Seg Neutrophils # Man Lymphocytes # (Manual) Monocytes # (Manual) Eosinophils # (Manual) PT INR Fibrinogen dRVVT Confirm Interp Factor V Activity POC ABG pH POC ABG pCO2 POC ABG pO2 Sodium Potassium Chloride Carbon Dioxide BUN Creatinine Glucose POC Glucose 151 H 149 H 153 H Lactic Acid Calcium Phosphorus Magnesium Direct Bilirubin AST ALT Alkaline Phosphatase Lactate Dehydrogenase Troponin T C-Reactive Protein Total Protein Albumin Prealbumin Triglycerides Cholesterol LDL Cholesterol Direct HDL Cholesterol Urine pH Urine WBC (Auto) Urine Creatinine Urine Total Protein Vancomycin Trough Rheumatoid Factor Complement C4 Miscellaneous Test Crossmatch 10/15/16 10/15/16 10/16/16 Unknown Unknown 00:02 WBC 23.4 H RBC 2.78 L Hgb 8.5 L Hct 25.7 L MCV MCH MCHC RDW 18.7 H Plt Count Lymph % (Auto) [place] % (Auto) Lymph # [place] # Baso # Seg Neutrophils % Seg Neuts % (Manual) Lymphocytes % (Manual) Monocytes % (Manual) Eosinophils % (Manual) Basophils % (Manual) Nucleated RBC % Seg Neutrophils # Seg Neutrophils # Man Lymphocytes # (Manual) Monocytes # (Manual) Eosinophils # (Manual) PT INR Fibrinogen dRVVT Confirm Interp Factor V Activity POC ABG pH POC ABG pCO2 POC ABG pO2 Sodium Potassium Chloride Carbon Dioxide BUN 73 H Creatinine 2.3 H Glucose 120 H POC Glucose 137 H Lactic Acid Calcium Phosphorus Magnesium Direct Bilirubin AST ALT Alkaline Phosphatase Lactate Dehydrogenase Troponin T C-Reactive Protein Total Protein Albumin Prealbumin Triglycerides Cholesterol LDL Cholesterol Direct HDL Cholesterol Urine pH Urine WBC (Auto) Urine Creatinine Urine Total Protein Vancomycin Trough Rheumatoid Factor Complement C4 Miscellaneous Test Crossmatch 10/16/16 10/16/16 10/16/16 05:44 06:25 06:25 WBC 22.5 H RBC 2.76 L Hgb 8.3 L Hct 25.2 L MCV MCH MCHC RDW 18.3 H Plt Count Lymph % (Auto) [place] % (Auto) Lymph # [place] # Baso # Seg Neutrophils % Seg Neuts % (Manual) Lymphocytes % (Manual) Monocytes % (Manual) Eosinophils % (Manual) Basophils % (Manual) Nucleated RBC % Seg Neutrophils # Seg Neutrophils # Man Lymphocytes # (Manual) Monocytes # (Manual) Eosinophils # (Manual) PT INR Fibrinogen dRVVT Confirm Interp Factor V Activity POC ABG pH POC ABG pCO2 POC ABG pO2 Sodium Potassium Chloride Carbon Dioxide BUN 92 H Creatinine 3.0 H Glucose 138 H POC Glucose 110 H Lactic Acid Calcium Phosphorus Magnesium Direct Bilirubin AST ALT Alkaline Phosphatase Lactate Dehydrogenase Troponin T C-Reactive Protein Total Protein Albumin Prealbumin Triglycerides Cholesterol LDL Cholesterol Direct HDL Cholesterol Urine pH Urine WBC (Auto) Urine Creatinine Urine Total Protein Vancomycin Trough Rheumatoid Factor Complement C4 Miscellaneous Test Crossmatch 10/16/16 10/16/16 10/16/16 11:27 11:48 17:36 WBC RBC Hgb Hct MCV MCH MCHC RDW Plt Count Lymph % (Auto) [place] % (Auto) Lymph # [place] # Baso # Seg Neutrophils % Seg Neuts % (Manual) Lymphocytes % (Manual) Monocytes % (Manual) Eosinophils % (Manual) Basophils % (Manual) Nucleated RBC % Seg Neutrophils # Seg Neutrophils # Man Lymphocytes # (Manual) Monocytes # (Manual) Eosinophils # (Manual) PT INR Fibrinogen dRVVT Confirm Interp Factor V Activity POC ABG pH 7.582 H POC ABG pCO2 27.4 L POC ABG pO2 110 H Sodium Potassium Chloride Carbon Dioxide BUN Creatinine Glucose POC Glucose 121 H 133 H Lactic Acid Calcium Phosphorus Magnesium Direct Bilirubin AST ALT Alkaline Phosphatase Lactate Dehydrogenase Troponin T C-Reactive Protein Total Protein Albumin Prealbumin Triglycerides Cholesterol LDL Cholesterol Direct HDL Cholesterol Urine pH Urine WBC (Auto) Urine Creatinine Urine Total Protein Vancomycin Trough Rheumatoid Factor Complement C4 Miscellaneous Test Crossmatch 10/16/16 10/17/16 10/17/16 20:48 04:24 04:24 WBC 21.4 H RBC 2.72 L Hgb 8.0 L Hct 25.2 L MCV MCH MCHC RDW 18.0 H Plt Count Lymph % (Auto) [place] % (Auto) Lymph # [place] # Baso # Seg Neutrophils % Seg Neuts % (Manual) Lymphocytes % (Manual) Monocytes % (Manual) Eosinophils % (Manual) Basophils % (Manual) Nucleated RBC % Seg Neutrophils # Seg Neutrophils # Man Lymphocytes # (Manual) Monocytes # (Manual) Eosinophils # (Manual) PT INR Fibrinogen dRVVT Confirm Interp Factor V Activity POC ABG pH 7.561 H POC ABG pCO2 24.4 L POC ABG pO2 77 L Sodium 148 H Potassium Chloride Carbon Dioxide BUN 104 H Creatinine 3.0 H Glucose 149 H POC Glucose Lactic Acid Calcium Phosphorus Magnesium Direct Bilirubin AST ALT Alkaline Phosphatase 138 H Lactate Dehydrogenase Troponin T C-Reactive Protein Total Protein 6.2 L Albumin 1.5 L Prealbumin Triglycerides Cholesterol LDL Cholesterol Direct HDL Cholesterol Urine pH Urine WBC (Auto) Urine Creatinine Urine Total Protein Vancomycin Trough Rheumatoid Factor Complement C4 Miscellaneous Test Crossmatch 10/17/16 10/17/16 10/17/16 06:02 12:17 17:14 WBC RBC Hgb Hct MCV MCH MCHC RDW Plt Count Lymph % (Auto) [place] % (Auto) Lymph # [place] # Baso # Seg Neutrophils % Seg Neuts % (Manual) Lymphocytes % (Manual) Monocytes % (Manual) Eosinophils % (Manual) Basophils % (Manual) Nucleated RBC % Seg Neutrophils # Seg Neutrophils # Man Lymphocytes # (Manual) Monocytes # (Manual) Eosinophils # (Manual) PT INR Fibrinogen dRVVT Confirm Interp Factor V Activity POC ABG pH POC ABG pCO2 POC ABG pO2 Sodium Potassium Chloride Carbon Dioxide BUN Creatinine Glucose POC Glucose 170 H 167 H 126 H Lactic Acid Calcium Phosphorus Magnesium Direct Bilirubin AST ALT Alkaline Phosphatase Lactate Dehydrogenase Troponin T C-Reactive Protein Total Protein Albumin Prealbumin Triglycerides Cholesterol LDL Cholesterol Direct HDL Cholesterol Urine pH Urine WBC (Auto) Urine Creatinine Urine Total Protein Vancomycin Trough Rheumatoid Factor Complement C4 Miscellaneous Test Crossmatch 10/17/16 10/18/16 10/18/16 23:17 04:00 04:00 WBC 20.7 H RBC 2.47 L Hgb 7.4 L Hct 22.9 L MCV MCH MCHC RDW 17.5 H Plt Count Lymph % (Auto) [place] % (Auto) Lymph # [place] # Baso # Seg Neutrophils % Seg Neuts % (Manual) Lymphocytes % (Manual) Monocytes % (Manual) Eosinophils % (Manual) Basophils % (Manual) Nucleated RBC % Seg Neutrophils # Seg Neutrophils # Man Lymphocytes # (Manual) Monocytes # (Manual) Eosinophils # (Manual) PT INR Fibrinogen dRVVT Confirm Interp Factor V Activity POC ABG pH POC ABG pCO2 POC ABG pO2 Sodium 149 H Potassium Chloride 107.9 H Carbon Dioxide 20 L BUN 117 H Creatinine 3.2 H Glucose 119 H POC Glucose 121 H Lactic Acid Calcium Phosphorus Magnesium Direct Bilirubin AST ALT Alkaline Phosphatase Lactate Dehydrogenase Troponin T C-Reactive Protein Total Protein Albumin Prealbumin Triglycerides Cholesterol LDL Cholesterol Direct HDL Cholesterol Urine pH Urine WBC (Auto) Urine Creatinine Urine Total Protein Vancomycin Trough Rheumatoid Factor Complement C4 Miscellaneous Test Crossmatch 10/18/16 10/18/16 10/18/16 05:23 10:46 17:30 WBC RBC Hgb Hct MCV MCH MCHC RDW Plt Count Lymph % (Auto) [place] % (Auto) Lymph # [place] # Baso # Seg Neutrophils % Seg Neuts % (Manual) Lymphocytes % (Manual) Monocytes % (Manual) Eosinophils % (Manual) Basophils % (Manual) Nucleated RBC % Seg Neutrophils # Seg Neutrophils # Man Lymphocytes # (Manual) Monocytes # (Manual) Eosinophils # (Manual) PT INR Fibrinogen dRVVT Confirm Interp Factor V Activity POC ABG pH POC ABG pCO2 POC ABG pO2 Sodium Potassium Chloride Carbon Dioxide BUN Creatinine Glucose POC Glucose 119 H 155 H 124 H Lactic Acid Calcium Phosphorus Magnesium Direct Bilirubin AST ALT Alkaline Phosphatase Lactate Dehydrogenase Troponin T C-Reactive Protein Total Protein Albumin Prealbumin Triglycerides Cholesterol LDL Cholesterol Direct HDL Cholesterol Urine pH Urine WBC (Auto) Urine Creatinine Urine Total Protein Vancomycin Trough Rheumatoid Factor Complement C4 Miscellaneous Test Crossmatch 10/19/16 10/19/16 10/19/16 04:00 04:00 05:25 WBC 17.4 H RBC 2.54 L Hgb 7.7 L Hct 23.6 L MCV MCH MCHC RDW 17.3 H Plt Count Lymph % (Auto) [place] % (Auto) Lymph # [place] # Baso # Seg Neutrophils % Seg Neuts % (Manual) Lymphocytes % (Manual) Monocytes % (Manual) Eosinophils % (Manual) Basophils % (Manual) Nucleated RBC % Seg Neutrophils # Seg Neutrophils # Man Lymphocytes # (Manual) Monocytes # (Manual) Eosinophils # (Manual) PT INR Fibrinogen dRVVT Confirm Interp Factor V Activity POC ABG pH POC ABG pCO2 POC ABG pO2 Sodium Potassium Chloride Carbon Dioxide BUN 72 H Creatinine 2.1 H Glucose 116 H POC Glucose 119 H Lactic Acid Calcium Phosphorus Magnesium Direct Bilirubin AST ALT Alkaline Phosphatase Lactate Dehydrogenase Troponin T C-Reactive Protein Total Protein Albumin Prealbumin Triglycerides Cholesterol LDL Cholesterol Direct HDL Cholesterol Urine pH Urine WBC (Auto) Urine Creatinine Urine Total Protein Vancomycin Trough Rheumatoid Factor Complement C4 Miscellaneous Test Crossmatch 10/19/16 10/19/16 10/20/16 11:46 23:59 06:00 WBC RBC Hgb Hct MCV MCH MCHC RDW Plt Count Lymph % (Auto) [place] % (Auto) Lymph # [place] # Baso # Seg Neutrophils % Seg Neuts % (Manual) Lymphocytes % (Manual) Monocytes % (Manual) Eosinophils % (Manual) Basophils % (Manual) Nucleated RBC % Seg Neutrophils # Seg Neutrophils # Man Lymphocytes # (Manual) Monocytes # (Manual) Eosinophils # (Manual) PT INR Fibrinogen dRVVT Confirm Interp Factor V Activity POC ABG pH POC ABG pCO2 POC ABG pO2 Sodium Potassium Chloride Carbon Dioxide 17 L BUN 94 H Creatinine 2.7 H Glucose POC Glucose 116 H 117 H Lactic Acid Calcium Phosphorus Magnesium Direct Bilirubin AST ALT Alkaline Phosphatase Lactate Dehydrogenase Troponin T C-Reactive Protein Total Protein Albumin Prealbumin Triglycerides Cholesterol LDL Cholesterol Direct HDL Cholesterol Urine pH Urine WBC (Auto) Urine Creatinine Urine Total Protein Vancomycin Trough Rheumatoid Factor Complement C4 Miscellaneous Test Crossmatch 10/20/16 10/20/16 10/20/16 06:00 11:49 16:00 WBC 19.7 H RBC 2.51 L Hgb 7.7 L Hct 23.5 L MCV MCH MCHC RDW 17.5 H Plt Count Lymph % (Auto) [place] % (Auto) Lymph # [place] # Baso # Seg Neutrophils % Seg Neuts % (Manual) Lymphocytes % (Manual) Monocytes % (Manual) Eosinophils % (Manual) Basophils % (Manual) Nucleated RBC % Seg Neutrophils # Seg Neutrophils # Man Lymphocytes # (Manual) Monocytes # (Manual) Eosinophils # (Manual) PT INR Fibrinogen dRVVT Confirm Interp Factor V Activity POC ABG pH POC ABG pCO2 POC ABG pO2 Sodium Potassium Chloride Carbon Dioxide BUN Creatinine Glucose POC Glucose 117 H Lactic Acid Calcium Phosphorus Magnesium Direct Bilirubin AST ALT Alkaline Phosphatase Lactate Dehydrogenase Troponin T C-Reactive Protein Total Protein Albumin Prealbumin Triglycerides Cholesterol LDL Cholesterol Direct HDL Cholesterol Urine pH Urine WBC (Auto) Urine Creatinine Urine Total Protein Vancomycin Trough Rheumatoid Factor Complement C4 Miscellaneous Test Flexitest 1 H Crossmatch 10/20/16 10/20/16 10/21/16 18:36 23:39 04:00 WBC RBC Hgb Hct MCV MCH MCHC RDW Plt Count Lymph % (Auto) [place] % (Auto) Lymph # [place] # Baso # Seg Neutrophils % Seg Neuts % (Manual) Lymphocytes % (Manual) Monocytes % (Manual) Eosinophils % (Manual) Basophils % (Manual) Nucleated RBC % Seg Neutrophils # Seg Neutrophils # Man Lymphocytes # (Manual) Monocytes # (Manual) Eosinophils # (Manual) PT INR Fibrinogen dRVVT Confirm Interp Factor V Activity POC ABG pH POC ABG pCO2 POC ABG pO2 Sodium Potassium 5.4 H D Chloride Carbon Dioxide 15 L BUN 110 H Creatinine 3.0 H Glucose POC Glucose 127 H 114 H Lactic Acid Calcium Phosphorus Magnesium Direct Bilirubin AST ALT Alkaline Phosphatase Lactate Dehydrogenase Troponin T C-Reactive Protein Total Protein Albumin Prealbumin Triglycerides Cholesterol LDL Cholesterol Direct HDL Cholesterol Urine pH Urine WBC (Auto) Urine Creatinine Urine Total Protein Vancomycin Trough Rheumatoid Factor Complement C4 Miscellaneous Test Crossmatch 10/21/16 10/21/16 10/22/16 05:54 23:46 05:18 WBC RBC Hgb Hct MCV MCH MCHC RDW Plt Count Lymph % (Auto) [place] % (Auto) Lymph # [place] # Baso # Seg Neutrophils % Seg Neuts % (Manual) Lymphocytes % (Manual) Monocytes % (Manual) Eosinophils % (Manual) Basophils % (Manual) Nucleated RBC % Seg Neutrophils # Seg Neutrophils # Man Lymphocytes # (Manual) Monocytes # (Manual) Eosinophils # (Manual) PT INR Fibrinogen dRVVT Confirm Interp Factor V Activity POC ABG pH POC ABG pCO2 POC ABG pO2 Sodium Potassium Chloride Carbon Dioxide BUN Creatinine Glucose POC Glucose 119 H 108 H 109 H Lactic Acid Calcium Phosphorus Magnesium Direct Bilirubin AST ALT Alkaline Phosphatase Lactate Dehydrogenase Troponin T C-Reactive Protein Total Protein Albumin Prealbumin Triglycerides Cholesterol LDL Cholesterol Direct HDL Cholesterol Urine pH Urine WBC (Auto) Urine Creatinine Urine Total Protein Vancomycin Trough Rheumatoid Factor Complement C4 Miscellaneous Test Crossmatch 10/22/16 10/22/16 10/22/16 06:40 06:40 06:40 WBC 14.0 H RBC 2.03 L Hgb 7.0 L Hct 20.5 L MCV 98 H MCH 34 H MCHC 35 H RDW 17.8 H Plt Count Lymph % (Auto) [place] % (Auto) 9.9 H Lymph # [place] # 1.4 H Baso # 0.2 H Seg Neutrophils % 72.0 H Seg Neuts % (Manual) Lymphocytes % (Manual) Monocytes % (Manual) Eosinophils % (Manual) Basophils % (Manual) Nucleated RBC % Seg Neutrophils # 10.0 H Seg Neutrophils # Man Lymphocytes # (Manual) Monocytes # (Manual) Eosinophils # (Manual) PT INR Fibrinogen dRVVT Confirm Interp Factor V Activity POC ABG pH POC ABG pCO2 POC ABG pO2 Sodium 130 L D Potassium Chloride 92.4 L Carbon Dioxide 20 L BUN 50 H Creatinine 1.6 H Glucose 589 H* POC Glucose Lactic Acid Calcium 7.8 L D Phosphorus Magnesium 1.60 L Direct Bilirubin AST ALT Alkaline Phosphatase Lactate Dehydrogenase Troponin T C-Reactive Protein Total Protein Albumin Prealbumin Triglycerides Cholesterol LDL Cholesterol Direct HDL Cholesterol Urine pH Urine WBC (Auto) Urine Creatinine Urine Total Protein Vancomycin Trough Rheumatoid Factor Complement C4 Miscellaneous Test Crossmatch 10/22/16 10/22/16 10/22/16 11:39 16:44 23:36 WBC RBC Hgb Hct MCV MCH MCHC RDW Plt Count Lymph % (Auto) [place] % (Auto) Lymph # [place] # Baso # Seg Neutrophils % Seg Neuts % (Manual) Lymphocytes % (Manual) Monocytes % (Manual) Eosinophils % (Manual) Basophils % (Manual) Nucleated RBC % Seg Neutrophils # Seg Neutrophils # Man Lymphocytes # (Manual) Monocytes # (Manual) Eosinophils # (Manual) PT INR Fibrinogen dRVVT Confirm Interp Factor V Activity POC ABG pH POC ABG pCO2 POC ABG pO2 Sodium Potassium Chloride Carbon Dioxide BUN Creatinine Glucose POC Glucose 142 H 163 H 123 H Lactic Acid Calcium Phosphorus Magnesium Direct Bilirubin AST ALT Alkaline Phosphatase Lactate Dehydrogenase Troponin T C-Reactive Protein Total Protein Albumin Prealbumin Triglycerides Cholesterol LDL Cholesterol Direct HDL Cholesterol Urine pH Urine WBC (Auto) Urine Creatinine Urine Total Protein Vancomycin Trough Rheumatoid Factor Complement C4 Miscellaneous Test Crossmatch 10/23/16 10/23/16 10/23/16 04:58 06:00 12:12 WBC RBC Hgb Hct MCV MCH MCHC RDW Plt Count Lymph % (Auto) [place] % (Auto) Lymph # [place] # Baso # Seg Neutrophils % Seg Neuts % (Manual) Lymphocytes % (Manual) Monocytes % (Manual) Eosinophils % (Manual) Basophils % (Manual) Nucleated RBC % Seg Neutrophils # Seg Neutrophils # Man Lymphocytes # (Manual) Monocytes # (Manual) Eosinophils # (Manual) PT INR Fibrinogen dRVVT Confirm Interp Factor V Activity POC ABG pH POC ABG pCO2 POC ABG pO2 Sodium 133 L Potassium 3.5 L Chloride 96.1 L Carbon Dioxide 18 L BUN 76 H Creatinine 2.1 H Glucose POC Glucose 133 H 138 H Lactic Acid Calcium 8.3 L Phosphorus Magnesium Direct Bilirubin AST ALT Alkaline Phosphatase Lactate Dehydrogenase Troponin T C-Reactive Protein Total Protein Albumin Prealbumin Triglycerides Cholesterol LDL Cholesterol Direct HDL Cholesterol Urine pH Urine WBC (Auto) Urine Creatinine Urine Total Protein Vancomycin Trough Rheumatoid Factor Complement C4 Miscellaneous Test Crossmatch 10/23/16 10/23/16 10/24/16 16:53 23:37 04:00 WBC RBC Hgb Hct MCV MCH MCHC RDW Plt Count Lymph % (Auto) [place] % (Auto) Lymph # [place] # Baso # Seg Neutrophils % Seg Neuts % (Manual) Lymphocytes % (Manual) Monocytes % (Manual) Eosinophils % (Manual) Basophils % (Manual) Nucleated RBC % Seg Neutrophils # Seg Neutrophils # Man Lymphocytes # (Manual) Monocytes # (Manual) Eosinophils # (Manual) PT INR Fibrinogen dRVVT Confirm Interp Factor V Activity POC ABG pH POC ABG pCO2 POC ABG pO2 Sodium 131 L Potassium Chloride 94.5 L Carbon Dioxide 19 L BUN 97 H Creatinine 2.6 H Glucose 110 H POC Glucose 125 H 123 H Lactic Acid Calcium 8.3 L Phosphorus Magnesium Direct Bilirubin AST ALT Alkaline Phosphatase Lactate Dehydrogenase Troponin T C-Reactive Protein Total Protein Albumin Prealbumin Triglycerides Cholesterol LDL Cholesterol Direct HDL Cholesterol Urine pH Urine WBC (Auto) Urine Creatinine Urine Total Protein Vancomycin Trough Rheumatoid Factor Complement C4 Miscellaneous Test Crossmatch 10/24/16 10/24/16 10/24/16 07:49 11:39 17:52 WBC RBC Hgb 6.0 L Hct 19.7 L* MCV MCH MCHC RDW Plt Count Lymph % (Auto) [place] % (Auto) Lymph # [place] # Baso # Seg Neutrophils % Seg Neuts % (Manual) Lymphocytes % (Manual) Monocytes % (Manual) Eosinophils % (Manual) Basophils % (Manual) Nucleated RBC % Seg Neutrophils # Seg Neutrophils # Man Lymphocytes # (Manual) Monocytes # (Manual) Eosinophils # (Manual) PT INR Fibrinogen dRVVT Confirm Interp Factor V Activity POC ABG pH POC ABG pCO2 POC ABG pO2 Sodium Potassium Chloride Carbon Dioxide BUN Creatinine Glucose POC Glucose 106 H 158 H Lactic Acid Calcium Phosphorus Magnesium Direct Bilirubin AST ALT Alkaline Phosphatase Lactate Dehydrogenase Troponin T C-Reactive Protein Total Protein Albumin Prealbumin Triglycerides Cholesterol LDL Cholesterol Direct HDL Cholesterol Urine pH Urine WBC (Auto) Urine Creatinine Urine Total Protein Vancomycin Trough Rheumatoid Factor Complement C4 Miscellaneous Test Crossmatch 10/24/16 10/24/16 10/24/16 20:00 22:27 Unknown WBC RBC Hgb 9.4 L D Hct 27.5 L D MCV MCH MCHC RDW Plt Count Lymph % (Auto) [place] % (Auto) Lymph # [place] # Baso # Seg Neutrophils % Seg Neuts % (Manual) Lymphocytes % (Manual) Monocytes % (Manual) Eosinophils % (Manual) Basophils % (Manual) Nucleated RBC % Seg Neutrophils # Seg Neutrophils # Man Lymphocytes # (Manual) Monocytes # (Manual) Eosinophils # (Manual) PT INR Fibrinogen dRVVT Confirm Interp Factor V Activity POC ABG pH POC ABG pCO2 POC ABG pO2 Sodium Potassium Chloride Carbon Dioxide BUN Creatinine Glucose POC Glucose 125 H Lactic Acid Calcium Phosphorus Magnesium Direct Bilirubin AST ALT Alkaline Phosphatase Lactate Dehydrogenase Troponin T C-Reactive Protein Total Protein Albumin Prealbumin Triglycerides Cholesterol LDL Cholesterol Direct HDL Cholesterol Urine pH Urine WBC (Auto) Urine Creatinine Urine Total Protein Vancomycin Trough Rheumatoid Factor Complement C4 Miscellaneous Test Crossmatch See Detail 10/25/16 10/25/16 10/25/16 04:00 04:00 04:00 WBC 14.2 H RBC 2.98 L Hgb 9.0 L Hct 26.2 L MCV MCH MCHC RDW 16.6 H Plt Count Lymph % (Auto) [place] % (Auto) 10.7 H Lymph # [place] # 1.5 H Baso # Seg Neutrophils % 73.6 H Seg Neuts % (Manual) Lymphocytes % (Manual) Monocytes % (Manual) Eosinophils % (Manual) Basophils % (Manual) Nucleated RBC % Seg Neutrophils # 10.5 H Seg Neutrophils # Man Lymphocytes # (Manual) Monocytes # (Manual) Eosinophils # (Manual) PT INR Fibrinogen dRVVT Confirm Interp Factor V Activity POC ABG pH POC ABG pCO2 POC ABG pO2 Sodium 132 L Potassium Chloride 94.7 L Carbon Dioxide BUN 51 H Creatinine 1.6 H Glucose 130 H POC Glucose Lactic Acid Calcium 8.3 L Phosphorus 1.60 L D Magnesium Direct Bilirubin AST ALT Alkaline Phosphatase Lactate Dehydrogenase Troponin T C-Reactive Protein Total Protein Albumin Prealbumin Triglycerides Cholesterol LDL Cholesterol Direct HDL Cholesterol Urine pH Urine WBC (Auto) Urine Creatinine Urine Total Protein Vancomycin Trough Rheumatoid Factor Complement C4 Miscellaneous Test Crossmatch 10/25/16 10/25/16 10/25/16 04:32 11:48 17:22 WBC RBC Hgb Hct MCV MCH MCHC RDW Plt Count Lymph % (Auto) [place] % (Auto) Lymph # [place] # Baso # Seg Neutrophils % Seg Neuts % (Manual) Lymphocytes % (Manual) Monocytes % (Manual) Eosinophils % (Manual) Basophils % (Manual) Nucleated RBC % Seg Neutrophils # Seg Neutrophils # Man Lymphocytes # (Manual) Monocytes # (Manual) Eosinophils # (Manual) PT INR Fibrinogen dRVVT Confirm Interp Factor V Activity POC ABG pH POC ABG pCO2 POC ABG pO2 Sodium Potassium Chloride Carbon Dioxide BUN Creatinine Glucose POC Glucose 124 H 171 H 120 H Lactic Acid Calcium Phosphorus Magnesium Direct Bilirubin AST ALT Alkaline Phosphatase Lactate Dehydrogenase Troponin T C-Reactive Protein Total Protein Albumin Prealbumin Triglycerides Cholesterol LDL Cholesterol Direct HDL Cholesterol Urine pH Urine WBC (Auto) Urine Creatinine Urine Total Protein Vancomycin Trough Rheumatoid Factor Complement C4 Miscellaneous Test Crossmatch 10/26/16 10/26/16 10/26/16 04:54 07:06 07:06 WBC 16.9 H RBC 3.06 L Hgb 9.1 L Hct 26.9 L MCV MCH MCHC RDW 16.9 H Plt Count Lymph % (Auto) [place] % (Auto) Lymph # [place] # Baso # Seg Neutrophils % Seg Neuts % (Manual) 71.0 H Lymphocytes % (Manual) 5.0 L Monocytes % (Manual) 12.0 H Eosinophils % (Manual) Basophils % (Manual) Nucleated RBC % Seg Neutrophils # Seg Neutrophils # Man 12.0 H Lymphocytes # (Manual) 0.8 L Monocytes # (Manual) 2.0 H Eosinophils # (Manual) PT INR Fibrinogen dRVVT Confirm Interp Factor V Activity POC ABG pH POC ABG pCO2 POC ABG pO2 Sodium 135 L Potassium Chloride 97.1 L Carbon Dioxide BUN 73 H Creatinine 2.2 H Glucose 117 H POC Glucose 123 H Lactic Acid Calcium Phosphorus 1.70 L Magnesium Direct Bilirubin AST ALT Alkaline Phosphatase Lactate Dehydrogenase Troponin T C-Reactive Protein Total Protein Albumin Prealbumin Triglycerides Cholesterol LDL Cholesterol Direct HDL Cholesterol Urine pH Urine WBC (Auto) Urine Creatinine Urine Total Protein Vancomycin Trough Rheumatoid Factor Complement C4 Miscellaneous Test Crossmatch 10/26/16 10/26/16 10/26/16 12:12 17:29 23:42 WBC RBC Hgb Hct MCV MCH MCHC RDW Plt Count Lymph % (Auto) [place] % (Auto) Lymph # [place] # Baso # Seg Neutrophils % Seg Neuts % (Manual) Lymphocytes % (Manual) Monocytes % (Manual) Eosinophils % (Manual) Basophils % (Manual) Nucleated RBC % Seg Neutrophils # Seg Neutrophils # Man Lymphocytes # (Manual) Monocytes # (Manual) Eosinophils # (Manual) PT INR Fibrinogen dRVVT Confirm Interp Factor V Activity POC ABG pH POC ABG pCO2 POC ABG pO2 Sodium Potassium Chloride Carbon Dioxide BUN Creatinine Glucose POC Glucose 126 H 161 H 118 H Lactic Acid Calcium Phosphorus Magnesium Direct Bilirubin AST ALT Alkaline Phosphatase Lactate Dehydrogenase Troponin T C-Reactive Protein Total Protein Albumin Prealbumin Triglycerides Cholesterol LDL Cholesterol Direct HDL Cholesterol Urine pH Urine WBC (Auto) Urine Creatinine Urine Total Protein Vancomycin Trough Rheumatoid Factor Complement C4 Miscellaneous Test Crossmatch 10/27/16 10/27/16 10/27/16 05:03 06:30 06:30 WBC 13.9 H RBC 3.09 L Hgb 9.2 L Hct 27.5 L MCV MCH MCHC RDW 17.0 H Plt Count Lymph % (Auto) [place] % (Auto) Lymph # [place] # Baso # Seg Neutrophils % Seg Neuts % (Manual) 78.0 H Lymphocytes % (Manual) Monocytes % (Manual) Eosinophils % (Manual) Basophils % (Manual) Nucleated RBC % 2.0 H Seg Neutrophils # Seg Neutrophils # Man 10.8 H Lymphocytes # (Manual) Monocytes # (Manual) 1.0 H Eosinophils # (Manual) PT INR Fibrinogen dRVVT Confirm Interp Factor V Activity POC ABG pH POC ABG pCO2 POC ABG pO2 Sodium Potassium Chloride Carbon Dioxide BUN 40 H Creatinine 1.5 H Glucose 135 H POC Glucose 107 H Lactic Acid Calcium 8.3 L Phosphorus 1.30 L D Magnesium Direct Bilirubin AST ALT Alkaline Phosphatase Lactate Dehydrogenase Troponin T C-Reactive Protein Total Protein Albumin Prealbumin Triglycerides Cholesterol LDL Cholesterol Direct HDL Cholesterol Urine pH Urine WBC (Auto) Urine Creatinine Urine Total Protein Vancomycin Trough Rheumatoid Factor Complement C4 Miscellaneous Test Crossmatch 10/27/16 10/27/16 10/27/16 13:27 18:07 23:40 WBC RBC Hgb Hct MCV MCH MCHC RDW Plt Count Lymph % (Auto) [place] % (Auto) Lymph # [place] # Baso # Seg Neutrophils % Seg Neuts % (Manual) Lymphocytes % (Manual) Monocytes % (Manual) Eosinophils % (Manual) Basophils % (Manual) Nucleated RBC % Seg Neutrophils # Seg Neutrophils # Man Lymphocytes # (Manual) Monocytes # (Manual) Eosinophils # (Manual) PT INR Fibrinogen dRVVT Confirm Interp Factor V Activity POC ABG pH POC ABG pCO2 POC ABG pO2 Sodium Potassium Chloride Carbon Dioxide BUN Creatinine Glucose POC Glucose 117 H 121 H 118 H Lactic Acid Calcium Phosphorus Magnesium Direct Bilirubin AST ALT Alkaline Phosphatase Lactate Dehydrogenase Troponin T C-Reactive Protein Total Protein Albumin Prealbumin Triglycerides Cholesterol LDL Cholesterol Direct HDL Cholesterol Urine pH Urine WBC (Auto) Urine Creatinine Urine Total Protein Vancomycin Trough Rheumatoid Factor Complement C4 Miscellaneous Test Crossmatch 10/28/16 10/28/16 10/28/16 05:48 06:45 06:45 WBC 14.7 H RBC 3.05 L Hgb 9.0 L Hct 26.9 L MCV MCH MCHC RDW 16.8 H Plt Count Lymph % (Auto) 8.2 L [place] % (Auto) 8.4 H Lymph # [place] # 1.2 H Baso # Seg Neutrophils % 81.9 H Seg Neuts % (Manual) Lymphocytes % (Manual) Monocytes % (Manual) Eosinophils % (Manual) Basophils % (Manual) Nucleated RBC % Seg Neutrophils # 12.1 H Seg Neutrophils # Man Lymphocytes # (Manual) Monocytes # (Manual) Eosinophils # (Manual) PT INR Fibrinogen dRVVT Confirm Interp Factor V Activity POC ABG pH POC ABG pCO2 POC ABG pO2 Sodium Potassium Chloride Carbon Dioxide BUN 60 H Creatinine 1.9 H Glucose 120 H POC Glucose 114 H Lactic Acid Calcium Phosphorus Magnesium Direct Bilirubin AST ALT Alkaline Phosphatase Lactate Dehydrogenase Troponin T C-Reactive Protein Total Protein Albumin Prealbumin Triglycerides Cholesterol LDL Cholesterol Direct HDL Cholesterol Urine pH Urine WBC (Auto) Urine Creatinine Urine Total Protein Vancomycin Trough Rheumatoid Factor Complement C4 Miscellaneous Test Crossmatch 10/28/16 10/28/16 10/29/16 17:08 23:50 05:10 WBC RBC Hgb Hct MCV MCH MCHC RDW Plt Count Lymph % (Auto) [place] % (Auto) Lymph # [place] # Baso # Seg Neutrophils % Seg Neuts % (Manual) Lymphocytes % (Manual) Monocytes % (Manual) Eosinophils % (Manual) Basophils % (Manual) Nucleated RBC % Seg Neutrophils # Seg Neutrophils # Man Lymphocytes # (Manual) Monocytes # (Manual) Eosinophils # (Manual) PT INR Fibrinogen dRVVT Confirm Interp Factor V Activity POC ABG pH POC ABG pCO2 POC ABG pO2 Sodium Potassium Chloride Carbon Dioxide BUN Creatinine Glucose POC Glucose 109 H 110 H 124 H Lactic Acid Calcium Phosphorus Magnesium Direct Bilirubin AST ALT Alkaline Phosphatase Lactate Dehydrogenase Troponin T C-Reactive Protein Total Protein Albumin Prealbumin Triglycerides Cholesterol LDL Cholesterol Direct HDL Cholesterol Urine pH Urine WBC (Auto) Urine Creatinine Urine Total Protein Vancomycin Trough Rheumatoid Factor Complement C4 Miscellaneous Test Crossmatch 10/29/16 10/29/16 10/29/16 07:45 07:45 12:19 WBC 14.7 H RBC 3.15 L Hgb 9.3 L Hct 28.9 L MCV MCH MCHC RDW 17.0 H Plt Count Lymph % (Auto) 11.9 L [place] % (Auto) 8.6 H Lymph # [place] # 1.3 H Baso # Seg Neutrophils % 78.1 H Seg Neuts % (Manual) Lymphocytes % (Manual) Monocytes % (Manual) Eosinophils % (Manual) Basophils % (Manual) Nucleated RBC % Seg Neutrophils # 11.4 H Seg Neutrophils # Man Lymphocytes # (Manual) Monocytes # (Manual) Eosinophils # (Manual) PT INR Fibrinogen dRVVT Confirm Interp Factor V Activity POC ABG pH POC ABG pCO2 POC ABG pO2 Sodium Potassium 5.1 H Chloride Carbon Dioxide 19 L BUN 78 H Creatinine 2.2 H Glucose 116 H POC Glucose 118 H Lactic Acid Calcium Phosphorus Magnesium Direct Bilirubin AST ALT Alkaline Phosphatase Lactate Dehydrogenase Troponin T C-Reactive Protein Total Protein Albumin Prealbumin Triglycerides Cholesterol LDL Cholesterol Direct HDL Cholesterol Urine pH Urine WBC (Auto) Urine Creatinine Urine Total Protein Vancomycin Trough Rheumatoid Factor Complement C4 Miscellaneous Test Crossmatch 10/29/16 10/30/16 10/30/16 17:49 01:52 03:28 WBC RBC Hgb Hct MCV MCH MCHC RDW Plt Count Lymph % (Auto) [place] % (Auto) Lymph # [place] # Baso # Seg Neutrophils % Seg Neuts % (Manual) Lymphocytes % (Manual) Monocytes % (Manual) Eosinophils % (Manual) Basophils % (Manual) Nucleated RBC % Seg Neutrophils # Seg Neutrophils # Man Lymphocytes # (Manual) Monocytes # (Manual) Eosinophils # (Manual) PT INR Fibrinogen dRVVT Confirm Interp Factor V Activity POC ABG pH POC ABG pCO2 POC ABG pO2 Sodium Potassium 5.4 H Chloride 97.5 L Carbon Dioxide 19 L BUN 90 H Creatinine 2.5 H Glucose POC Glucose 120 H 129 H Lactic Acid Calcium Phosphorus 5.20 H Magnesium Direct Bilirubin AST ALT Alkaline Phosphatase Lactate Dehydrogenase Troponin T C-Reactive Protein Total Protein Albumin Prealbumin Triglycerides Cholesterol LDL Cholesterol Direct HDL Cholesterol Urine pH Urine WBC (Auto) Urine Creatinine Urine Total Protein Vancomycin Trough Rheumatoid Factor Complement C4 Miscellaneous Test Crossmatch 10/30/16 10/30/16 10/30/16 03:28 08:19 08:19 WBC 11.6 H 15.9 H RBC 2.75 L 2.82 L Hgb 7.9 L 8.3 L Hct 24.2 L 25.2 L MCV MCH MCHC RDW 16.7 H 17.2 H Plt Count Lymph % (Auto) [place] % (Auto) 9.8 H Lymph # [place] # 1.1 H Baso # Seg Neutrophils % 74.2 H Seg Neuts % (Manual) Lymphocytes % (Manual) Monocytes % (Manual) Eosinophils % (Manual) Basophils % (Manual) Nucleated RBC % Seg Neutrophils # 8.6 H Seg Neutrophils # Man Lymphocytes # (Manual) Monocytes # (Manual) Eosinophils # (Manual) PT INR Fibrinogen dRVVT Confirm Interp Factor V Activity POC ABG pH POC ABG pCO2 POC ABG pO2 Sodium Potassium 5.3 H Chloride 97.4 L Carbon Dioxide 19 L BUN 93 H Creatinine 2.6 H Glucose POC Glucose Lactic Acid Calcium Phosphorus Magnesium Direct Bilirubin AST ALT Alkaline Phosphatase Lactate Dehydrogenase Troponin T C-Reactive Protein Total Protein Albumin Prealbumin Triglycerides Cholesterol LDL Cholesterol Direct HDL Cholesterol Urine pH Urine WBC (Auto) Urine Creatinine Urine Total Protein Vancomycin Trough Rheumatoid Factor Complement C4 Miscellaneous Test Crossmatch 10/30/16 10/30/16 10/31/16 17:11 23:56 00:40 WBC RBC Hgb Hct MCV MCH MCHC RDW Plt Count Lymph % (Auto) [place] % (Auto) Lymph # [place] # Baso # Seg Neutrophils % Seg Neuts % (Manual) Lymphocytes % (Manual) Monocytes % (Manual) Eosinophils % (Manual) Basophils % (Manual) Nucleated RBC % Seg Neutrophils # Seg Neutrophils # Man Lymphocytes # (Manual) Monocytes # (Manual) Eosinophils # (Manual) PT INR Fibrinogen dRVVT Confirm Interp Factor V Activity POC ABG pH POC ABG pCO2 POC ABG pO2 Sodium Potassium Chloride Carbon Dioxide BUN Creatinine Glucose POC Glucose 106 H 117 H 120 H Lactic Acid Calcium Phosphorus Magnesium Direct Bilirubin AST ALT Alkaline Phosphatase Lactate Dehydrogenase Troponin T C-Reactive Protein Total Protein Albumin Prealbumin Triglycerides Cholesterol LDL Cholesterol Direct HDL Cholesterol Urine pH Urine WBC (Auto) Urine Creatinine Urine Total Protein Vancomycin Trough Rheumatoid Factor Complement C4 Miscellaneous Test Crossmatch 10/31/16 10/31/16 10/31/16 05:43 07:15 07:15 WBC 12.1 H RBC 2.63 L Hgb 7.7 L Hct 23.3 L MCV MCH MCHC RDW 16.7 H Plt Count Lymph % (Auto) 11.7 L [place] % (Auto) 7.7 H Lymph # [place] # 0.9 H Baso # Seg Neutrophils % 78.0 H Seg Neuts % (Manual) Lymphocytes % (Manual) Monocytes % (Manual) Eosinophils % (Manual) Basophils % (Manual) Nucleated RBC % Seg Neutrophils # 9.4 H Seg Neutrophils # Man Lymphocytes # (Manual) Monocytes # (Manual) Eosinophils # (Manual) PT INR Fibrinogen dRVVT Confirm Interp Factor V Activity POC ABG pH POC ABG pCO2 POC ABG pO2 Sodium Potassium Chloride 96.4 L Carbon Dioxide 21 L BUN 99 H Creatinine 2.6 H Glucose 144 H POC Glucose 125 H Lactic Acid Calcium Phosphorus 4.80 H Magnesium Direct Bilirubin AST ALT Alkaline Phosphatase Lactate Dehydrogenase Troponin T C-Reactive Protein Total Protein Albumin Prealbumin Triglycerides Cholesterol LDL Cholesterol Direct HDL Cholesterol Urine pH Urine WBC (Auto) Urine Creatinine Urine Total Protein Vancomycin Trough Rheumatoid Factor Complement C4 Miscellaneous Test Crossmatch 10/31/16 10/31/16 11/01/16 11:46 18:34 00:20 WBC RBC Hgb Hct MCV MCH MCHC RDW Plt Count Lymph % (Auto) [place] % (Auto) Lymph # [place] # Baso # Seg Neutrophils % Seg Neuts % (Manual) Lymphocytes % (Manual) Monocytes % (Manual) Eosinophils % (Manual) Basophils % (Manual) Nucleated RBC % Seg Neutrophils # Seg Neutrophils # Man Lymphocytes # (Manual) Monocytes # (Manual) Eosinophils # (Manual) PT INR Fibrinogen dRVVT Confirm Interp Factor V Activity POC ABG pH POC ABG pCO2 POC ABG pO2 Sodium Potassium Chloride Carbon Dioxide BUN Creatinine Glucose POC Glucose 159 H 140 H 132 H Lactic Acid Calcium Phosphorus Magnesium Direct Bilirubin AST ALT Alkaline Phosphatase Lactate Dehydrogenase Troponin T C-Reactive Protein Total Protein Albumin Prealbumin Triglycerides Cholesterol LDL Cholesterol Direct HDL Cholesterol Urine pH Urine WBC (Auto) Urine Creatinine Urine Total Protein Vancomycin Trough Rheumatoid Factor Complement C4 Miscellaneous Test Crossmatch 11/01/16 11/01/16 11/01/16 04:55 04:55 06:11 WBC 11.2 H RBC 2.68 L Hgb 7.5 L Hct 23.7 L MCV MCH MCHC RDW 16.1 H Plt Count Lymph % (Auto) [place] % (Auto) 9.8 H Lymph # [place] # 1.1 H Baso # Seg Neutrophils % 70.8 H Seg Neuts % (Manual) Lymphocytes % (Manual) Monocytes % (Manual) Eosinophils % (Manual) Basophils % (Manual) Nucleated RBC % Seg Neutrophils # 7.9 H Seg Neutrophils # Man Lymphocytes # (Manual) Monocytes # (Manual) Eosinophils # (Manual) PT INR Fibrinogen dRVVT Confirm Interp Factor V Activity POC ABG pH POC ABG pCO2 POC ABG pO2 Sodium Potassium 3.3 L D Chloride Carbon Dioxide BUN 61 H Creatinine 1.9 H Glucose 114 H POC Glucose 115 H Lactic Acid Calcium Phosphorus 1.80 L D Magnesium Direct Bilirubin AST ALT Alkaline Phosphatase Lactate Dehydrogenase Troponin T C-Reactive Protein Total Protein Albumin Prealbumin Triglycerides Cholesterol LDL Cholesterol Direct HDL Cholesterol Urine pH Urine WBC (Auto) Urine Creatinine Urine Total Protein Vancomycin Trough Rheumatoid Factor Complement C4 Miscellaneous Test Crossmatch 11/01/16 11/01/16 11/01/16 12:29 18:23 23:58 WBC RBC Hgb Hct MCV MCH MCHC RDW Plt Count Lymph % (Auto) [place] % (Auto) Lymph # [place] # Baso # Seg Neutrophils % Seg Neuts % (Manual) Lymphocytes % (Manual) Monocytes % (Manual) Eosinophils % (Manual) Basophils % (Manual) Nucleated RBC % Seg Neutrophils # Seg Neutrophils # Man Lymphocytes # (Manual) Monocytes # (Manual) Eosinophils # (Manual) PT INR Fibrinogen dRVVT Confirm Interp Factor V Activity POC ABG pH POC ABG pCO2 POC ABG pO2 Sodium Potassium Chloride Carbon Dioxide BUN Creatinine Glucose POC Glucose 142 H 143 H 128 H Lactic Acid Calcium Phosphorus Magnesium Direct Bilirubin AST ALT Alkaline Phosphatase Lactate Dehydrogenase Troponin T C-Reactive Protein Total Protein Albumin Prealbumin Triglycerides Cholesterol LDL Cholesterol Direct HDL Cholesterol Urine pH Urine WBC (Auto) Urine Creatinine Urine Total Protein Vancomycin Trough Rheumatoid Factor Complement C4 Miscellaneous Test Crossmatch 11/02/16 11/02/16 11/02/16 04:16 05:29 11:58 WBC RBC Hgb Hct MCV MCH MCHC RDW Plt Count Lymph % (Auto) [place] % (Auto) Lymph # [place] # Baso # Seg Neutrophils % Seg Neuts % (Manual) Lymphocytes % (Manual) Monocytes % (Manual) Eosinophils % (Manual) Basophils % (Manual) Nucleated RBC % Seg Neutrophils # Seg Neutrophils # Man Lymphocytes # (Manual) Monocytes # (Manual) Eosinophils # (Manual) PT INR Fibrinogen dRVVT Confirm Interp Factor V Activity POC ABG pH POC ABG pCO2 POC ABG pO2 Sodium Potassium 3.1 L Chloride Carbon Dioxide BUN 73 H Creatinine 2.3 H Glucose 112 H POC Glucose 135 H 149 H Lactic Acid Calcium Phosphorus Magnesium Direct Bilirubin AST ALT Alkaline Phosphatase Lactate Dehydrogenase Troponin T C-Reactive Protein Total Protein Albumin Prealbumin Triglycerides Cholesterol LDL Cholesterol Direct HDL Cholesterol Urine pH Urine WBC (Auto) Urine Creatinine Urine Total Protein Vancomycin Trough Rheumatoid Factor Complement C4 Miscellaneous Test Crossmatch 11/02/16 11/02/16 11/03/16 17:42 22:54 06:00 WBC RBC Hgb Hct MCV MCH MCHC RDW Plt Count Lymph % (Auto) [place] % (Auto) Lymph # [place] # Baso # Seg Neutrophils % Seg Neuts % (Manual) Lymphocytes % (Manual) Monocytes % (Manual) Eosinophils % (Manual) Basophils % (Manual) Nucleated RBC % Seg Neutrophils # Seg Neutrophils # Man Lymphocytes # (Manual) Monocytes # (Manual) Eosinophils # (Manual) PT INR Fibrinogen dRVVT Confirm Interp Factor V Activity POC ABG pH POC ABG pCO2 POC ABG pO2 Sodium Potassium Chloride 96.7 L Carbon Dioxide BUN 41 H Creatinine 1.5 H Glucose 145 H POC Glucose 182 H 115 H Lactic Acid Calcium Phosphorus 1.60 L D Magnesium 1.50 L Direct Bilirubin AST ALT Alkaline Phosphatase Lactate Dehydrogenase Troponin T C-Reactive Protein Total Protein Albumin Prealbumin Triglycerides Cholesterol LDL Cholesterol Direct HDL Cholesterol Urine pH Urine WBC (Auto) Urine Creatinine Urine Total Protein Vancomycin Trough Rheumatoid Factor Complement C4 Miscellaneous Test Crossmatch 11/03/16 11/03/16 11/03/16 11:53 17:45 23:37 WBC RBC Hgb Hct MCV MCH MCHC RDW Plt Count Lymph % (Auto) [place] % (Auto) Lymph # [place] # Baso # Seg Neutrophils % Seg Neuts % (Manual) Lymphocytes % (Manual) Monocytes % (Manual) Eosinophils % (Manual) Basophils % (Manual) Nucleated RBC % Seg Neutrophils # Seg Neutrophils # Man Lymphocytes # (Manual) Monocytes # (Manual) Eosinophils # (Manual) PT INR Fibrinogen dRVVT Confirm Interp Factor V Activity POC ABG pH POC ABG pCO2 POC ABG pO2 Sodium Potassium Chloride Carbon Dioxide BUN Creatinine Glucose POC Glucose 131 H 134 H 113 H Lactic Acid Calcium Phosphorus Magnesium Direct Bilirubin AST ALT Alkaline Phosphatase Lactate Dehydrogenase Troponin T C-Reactive Protein Total Protein Albumin Prealbumin Triglycerides Cholesterol LDL Cholesterol Direct HDL Cholesterol Urine pH Urine WBC (Auto) Urine Creatinine Urine Total Protein Vancomycin Trough Rheumatoid Factor Complement C4 Miscellaneous Test Crossmatch 11/04/16 11/04/16 11/04/16 05:41 06:00 12:10 WBC RBC Hgb Hct MCV MCH MCHC RDW Plt Count Lymph % (Auto) [place] % (Auto) Lymph # [place] # Baso # Seg Neutrophils % Seg Neuts % (Manual) Lymphocytes % (Manual) Monocytes % (Manual) Eosinophils % (Manual) Basophils % (Manual) Nucleated RBC % Seg Neutrophils # Seg Neutrophils # Man Lymphocytes # (Manual) Monocytes # (Manual) Eosinophils # (Manual) PT INR Fibrinogen dRVVT Confirm Interp Factor V Activity POC ABG pH POC ABG pCO2 POC ABG pO2 Sodium Potassium Chloride 96.7 L Carbon Dioxide BUN 52 H Creatinine 1.9 H Glucose 126 H POC Glucose 137 H 191 H Lactic Acid Calcium Phosphorus Magnesium Direct Bilirubin AST ALT Alkaline Phosphatase Lactate Dehydrogenase Troponin T C-Reactive Protein Total Protein Albumin Prealbumin Triglycerides Cholesterol LDL Cholesterol Direct HDL Cholesterol Urine pH Urine WBC (Auto) Urine Creatinine Urine Total Protein Vancomycin Trough Rheumatoid Factor Complement C4 Miscellaneous Test Crossmatch 11/04/16 11/05/16 11/05/16 22:57 03:10 05:10 WBC RBC Hgb Hct MCV MCH MCHC RDW Plt Count Lymph % (Auto) [place] % (Auto) Lymph # Ramsey # Baso # Seg Neutrophils % Seg Neuts % (Manual) Lymphocytes % (Manual) Monocytes % (Manual) Eosinophils % (Manual) Basophils % (Manual) Nucleated RBC % Seg Neutrophils # Seg Neutrophils # Man Lymphocytes # (Manual) Monocytes # (Manual) Eosinophils # (Manual) PT INR Fibrinogen dRVVT Confirm Interp Factor V Activity POC ABG pH POC ABG pCO2 POC ABG pO2 Sodium 136 L Potassium Chloride 97.2 L Carbon Dioxide BUN 32 H Creatinine 1.3 H Glucose 123 H POC Glucose 125 H 108 H Lactic Acid Calcium 7.8 L Phosphorus Magnesium Direct Bilirubin AST ALT Alkaline Phosphatase Lactate Dehydrogenase Troponin T C-Reactive Protein Total Protein Albumin Prealbumin Triglycerides Cholesterol LDL Cholesterol Direct HDL Cholesterol Urine pH Urine WBC (Auto) Urine Creatinine Urine Total Protein Vancomycin Trough Rheumatoid Factor Complement C4 Miscellaneous Test Crossmatch 11/05/16 11/05/16 11/05/16 12:23 13:09 13:25 WBC RBC Hgb Hct MCV MCH MCHC RDW Plt Count Lymph % (Auto) [place] % (Auto) Lymph # [place] # Baso # Seg Neutrophils % Seg Neuts % (Manual) Lymphocytes % (Manual) Monocytes % (Manual) Eosinophils % (Manual) Basophils % (Manual) Nucleated RBC % Seg Neutrophils # Seg Neutrophils # Man Lymphocytes # (Manual) Monocytes # (Manual) Eosinophils # (Manual) PT INR Fibrinogen dRVVT Confirm Interp Factor V Activity POC ABG pH POC ABG pCO2 POC ABG pO2 Sodium Potassium Chloride Carbon Dioxide BUN Creatinine Glucose POC Glucose 124 H Lactic Acid Calcium Phosphorus Magnesium Direct Bilirubin AST ALT Alkaline Phosphatase Lactate Dehydrogenase Troponin T C-Reactive Protein 11.40 H Total Protein Albumin Prealbumin Triglycerides Cholesterol LDL Cholesterol Direct HDL Cholesterol Urine pH 9.0 H Urine WBC (Auto) Urine Creatinine Urine Total Protein Vancomycin Trough Rheumatoid Factor Complement C4 Miscellaneous Test Crossmatch 11/05/16 11/05/16 11/05/16 13:25 17:54 23:42 WBC RBC Hgb Hct MCV MCH MCHC RDW Plt Count Lymph % (Auto) [place] % (Auto) Lymph # [place] # Baso # Seg Neutrophils % Seg Neuts % (Manual) Lymphocytes % (Manual) Monocytes % (Manual) Eosinophils % (Manual) Basophils % (Manual) Nucleated RBC % Seg Neutrophils # Seg Neutrophils # Man Lymphocytes # (Manual) Monocytes # (Manual) Eosinophils # (Manual) PT INR Fibrinogen dRVVT Confirm Interp Factor V Activity POC ABG pH POC ABG pCO2 POC ABG pO2 Sodium Potassium Chloride Carbon Dioxide BUN Creatinine Glucose POC Glucose 114 H 134 H Lactic Acid Calcium Phosphorus Magnesium Direct Bilirubin AST ALT Alkaline Phosphatase Lactate Dehydrogenase Troponin T C-Reactive Protein Total Protein Albumin Prealbumin Triglycerides Cholesterol LDL Cholesterol Direct HDL Cholesterol Urine pH Urine WBC (Auto) Urine Creatinine Urine Total Protein Vancomycin Trough Rheumatoid Factor Complement C4 Miscellaneous Test Flexitest 1 H Crossmatch 11/06/16 11/06/16 11/06/16 04:56 06:25 06:25 WBC RBC 2.50 L Hgb 7.3 L Hct 22.5 L MCV MCH MCHC RDW 16.9 H Plt Count Lymph % (Auto) [place] % (Auto) 10.5 H Lymph # Ramsey # 1.1 H Baso # Seg Neutrophils % Seg Neuts % (Manual) Lymphocytes % (Manual) Monocytes % (Manual) Eosinophils % (Manual) Basophils % (Manual) Nucleated RBC % Seg Neutrophils # Seg Neutrophils # Man Lymphocytes # (Manual) Monocytes # (Manual) Eosinophils # (Manual) PT INR Fibrinogen dRVVT Confirm Interp Factor V Activity POC ABG pH POC ABG pCO2 POC ABG pO2 Sodium Potassium 5.1 H Chloride 95.9 L Carbon Dioxide BUN 52 H Creatinine 1.8 H Glucose 117 H POC Glucose 120 H Lactic Acid Calcium Phosphorus Magnesium Direct Bilirubin AST 103 H ALT 77 H Alkaline Phosphatase 285 H Lactate Dehydrogenase Troponin T C-Reactive Protein Total Protein 6.2 L Albumin 1.8 L Prealbumin 0.180 L Triglycerides Cholesterol LDL Cholesterol Direct HDL Cholesterol Urine pH Urine WBC (Auto) Urine Creatinine Urine Total Protein Vancomycin Trough Rheumatoid Factor Complement C4 Miscellaneous Test Crossmatch 11/06/16 11/06/16 11/06/16 11:56 17:14 23:52 WBC RBC Hgb Hct MCV MCH MCHC RDW Plt Count Lymph % (Auto) [place] % (Auto) Lymph # [place] # Baso # Seg Neutrophils % Seg Neuts % (Manual) Lymphocytes % (Manual) Monocytes % (Manual) Eosinophils % (Manual) Basophils % (Manual) Nucleated RBC % Seg Neutrophils # Seg Neutrophils # Man Lymphocytes # (Manual) Monocytes # (Manual) Eosinophils # (Manual) PT INR Fibrinogen dRVVT Confirm Interp Factor V Activity POC ABG pH POC ABG pCO2 POC ABG pO2 Sodium Potassium Chloride Carbon Dioxide BUN Creatinine Glucose POC Glucose 141 H 125 H 130 H Lactic Acid Calcium Phosphorus Magnesium Direct Bilirubin AST ALT Alkaline Phosphatase Lactate Dehydrogenase Troponin T C-Reactive Protein Total Protein Albumin Prealbumin Triglycerides Cholesterol LDL Cholesterol Direct HDL Cholesterol Urine pH Urine WBC (Auto) Urine Creatinine Urine Total Protein Vancomycin Trough Rheumatoid Factor Complement C4 Miscellaneous Test Crossmatch 11/07/16 11/07/16 11/07/16 06:30 06:30 09:37 WBC RBC 2.18 L Hgb 6.3 L Hct 19.7 L* MCV MCH MCHC RDW 16.8 H Plt Count Lymph % (Auto) [place] % (Auto) 10.0 H Lymph # Ramsey # 1.0 H Baso # Seg Neutrophils % Seg Neuts % (Manual) Lymphocytes % (Manual) Monocytes % (Manual) Eosinophils % (Manual) Basophils % (Manual) Nucleated RBC % Seg Neutrophils # Seg Neutrophils # Man Lymphocytes # (Manual) Monocytes # (Manual) Eosinophils # (Manual) PT INR Fibrinogen dRVVT Confirm Interp Factor V Activity POC ABG pH POC ABG pCO2 POC ABG pO2 Sodium 135 L Potassium Chloride 95.6 L Carbon Dioxide BUN 70 H Creatinine 2.0 H Glucose 126 H POC Glucose Lactic Acid Calcium Phosphorus Magnesium Direct Bilirubin AST ALT Alkaline Phosphatase Lactate Dehydrogenase Troponin T C-Reactive Protein Total Protein Albumin Prealbumin Triglycerides Cholesterol LDL Cholesterol Direct HDL Cholesterol Urine pH Urine WBC (Auto) Urine Creatinine Urine Total Protein Vancomycin Trough Rheumatoid Factor Complement C4 Miscellaneous Test Crossmatch See Detail 11/07/16 11/07/16 11/07/16 12:52 18:51 21:26 WBC RBC Hgb Hct MCV MCH MCHC RDW Plt Count Lymph % (Auto) [place] % (Auto) Lymph # [place] # Baso # Seg Neutrophils % Seg Neuts % (Manual) Lymphocytes % (Manual) Monocytes % (Manual) Eosinophils % (Manual) Basophils % (Manual) Nucleated RBC % Seg Neutrophils # Seg Neutrophils # Man Lymphocytes # (Manual) Monocytes # (Manual) Eosinophils # (Manual) PT INR Fibrinogen dRVVT Confirm Interp Factor V Activity POC ABG pH 7.523 H POC ABG pCO2 34.6 L POC ABG pO2 53 L Sodium Potassium Chloride Carbon Dioxide BUN Creatinine Glucose POC Glucose 142 H 155 H Lactic Acid Calcium Phosphorus Magnesium Direct Bilirubin AST ALT Alkaline Phosphatase Lactate Dehydrogenase Troponin T C-Reactive Protein Total Protein Albumin Prealbumin Triglycerides Cholesterol LDL Cholesterol Direct HDL Cholesterol Urine pH Urine WBC (Auto) Urine Creatinine Urine Total Protein Vancomycin Trough Rheumatoid Factor Complement C4 Miscellaneous Test Crossmatch 11/07/16 11/08/16 11/08/16 21:34 13:03 23:37 WBC RBC 2.63 L Hgb 7.7 L Hct 22.7 L MCV MCH MCHC RDW 17.0 H Plt Count Lymph % (Auto) [place] % (Auto) Lymph # [place] # Baso # Seg Neutrophils % Seg Neuts % (Manual) Lymphocytes % (Manual) Monocytes % (Manual) Eosinophils % (Manual) Basophils % (Manual) Nucleated RBC % Seg Neutrophils # Seg Neutrophils # Man Lymphocytes # (Manual) Monocytes # (Manual) Eosinophils # (Manual) PT INR Fibrinogen dRVVT Confirm Interp Factor V Activity POC ABG pH 7.478 H POC ABG pCO2 34.0 L POC ABG pO2 50 L Sodium Potassium Chloride Carbon Dioxide BUN Creatinine Glucose POC Glucose 113 H Lactic Acid Calcium Phosphorus Magnesium Direct Bilirubin AST ALT Alkaline Phosphatase Lactate Dehydrogenase Troponin T C-Reactive Protein Total Protein Albumin Prealbumin Triglycerides Cholesterol LDL Cholesterol Direct HDL Cholesterol Urine pH Urine WBC (Auto) Urine Creatinine Urine Total Protein Vancomycin Trough Rheumatoid Factor Complement C4 Miscellaneous Test Crossmatch 11/09/16 11/09/16 11/09/16 04:35 10:15 18:21 WBC RBC 2.68 L Hgb 7.8 L Hct 23.3 L MCV MCH MCHC RDW 17.0 H Plt Count Lymph % (Auto) [place] % (Auto) 12.1 H Lymph # Ramsey # 1.1 H Baso # Seg Neutrophils % Seg Neuts % (Manual) Lymphocytes % (Manual) Monocytes % (Manual) Eosinophils % (Manual) Basophils % (Manual) Nucleated RBC % Seg Neutrophils # Seg Neutrophils # Man Lymphocytes # (Manual) Monocytes # (Manual) Eosinophils # (Manual) PT INR Fibrinogen dRVVT Confirm Interp Factor V Activity POC ABG pH POC ABG pCO2 POC ABG pO2 Sodium Potassium Chloride Carbon Dioxide BUN 51 H Creatinine 1.8 H Glucose POC Glucose 60 L Lactic Acid Calcium 8.3 L Phosphorus Magnesium Direct Bilirubin AST ALT Alkaline Phosphatase Lactate Dehydrogenase Troponin T C-Reactive Protein Total Protein Albumin Prealbumin Triglycerides Cholesterol LDL Cholesterol Direct HDL Cholesterol Urine pH Urine WBC (Auto) Urine Creatinine Urine Total Protein Vancomycin Trough Rheumatoid Factor Complement C4 Miscellaneous Test Crossmatch 11/09/16 11/10/16 11/10/16 18:55 07:00 11:51 WBC RBC Hgb Hct MCV MCH MCHC RDW Plt Count Lymph % (Auto) [place] % (Auto) Lymph # [place] # Baso # Seg Neutrophils % Seg Neuts % (Manual) Lymphocytes % (Manual) Monocytes % (Manual) Eosinophils % (Manual) Basophils % (Manual) Nucleated RBC % Seg Neutrophils # Seg Neutrophils # Man Lymphocytes # (Manual) Monocytes # (Manual) Eosinophils # (Manual) PT INR Fibrinogen dRVVT Confirm Interp Factor V Activity POC ABG pH POC ABG pCO2 POC ABG pO2 Sodium Potassium 3.0 L D Chloride 97.4 L Carbon Dioxide BUN 28 H Creatinine 1.3 H Glucose POC Glucose 68 L 120 H Lactic Acid Calcium 7.8 L Phosphorus Magnesium Direct Bilirubin AST ALT Alkaline Phosphatase Lactate Dehydrogenase Troponin T C-Reactive Protein Total Protein Albumin Prealbumin Triglycerides Cholesterol LDL Cholesterol Direct HDL Cholesterol Urine pH Urine WBC (Auto) Urine Creatinine Urine Total Protein Vancomycin Trough Rheumatoid Factor Complement C4 Miscellaneous Test Crossmatch 11/11/16 11/11/16 11/11/16 06:59 06:59 06:59 WBC RBC 2.81 L Hgb 8.1 L Hct 24.4 L MCV MCH MCHC RDW 16.4 H Plt Count Lymph % (Auto) [place] % (Auto) 10.8 H Lymph # [place] # 1.0 H Baso # Seg Neutrophils % Seg Neuts % (Manual) Lymphocytes % (Manual) Monocytes % (Manual) Eosinophils % (Manual) Basophils % (Manual) Nucleated RBC % Seg Neutrophils # Seg Neutrophils # Man Lymphocytes # (Manual) Monocytes # (Manual) Eosinophils # (Manual) PT INR Fibrinogen dRVVT Confirm Interp Factor V Activity POC ABG pH POC ABG pCO2 POC ABG pO2 Sodium 136 L Potassium Chloride 96.1 L Carbon Dioxide BUN 37 H Creatinine 1.8 H Glucose POC Glucose Lactic Acid Calcium Phosphorus Magnesium Direct Bilirubin AST ALT Alkaline Phosphatase Lactate Dehydrogenase 196 H Troponin T C-Reactive Protein Total Protein 6.1 L Albumin Prealbumin Triglycerides Cholesterol LDL Cholesterol Direct HDL Cholesterol Urine pH Urine WBC (Auto) Urine Creatinine Urine Total Protein Vancomycin Trough Rheumatoid Factor Complement C4 Miscellaneous Test Crossmatch 11/11/16 11/12/16 11/12/16 09:50 04:00 04:00 WBC RBC Hgb 8.9 L Hct 27.2 L MCV MCH MCHC RDW Plt Count Lymph % (Auto) [place] % (Auto) Lymph # [place] # Baso # Seg Neutrophils % Seg Neuts % (Manual) Lymphocytes % (Manual) Monocytes % (Manual) Eosinophils % (Manual) Basophils % (Manual) Nucleated RBC % Seg Neutrophils # Seg Neutrophils # Man Lymphocytes # (Manual) Monocytes # (Manual) Eosinophils # (Manual) PT INR 1.18 H Fibrinogen dRVVT Confirm Interp Factor V Activity POC ABG pH POC ABG pCO2 POC ABG pO2 Sodium 133 L Potassium Chloride 94.8 L Carbon Dioxide 21 L BUN 42 H Creatinine 2.0 H Glucose POC Glucose Lactic Acid Calcium Phosphorus Magnesium Direct Bilirubin AST ALT Alkaline Phosphatase Lactate Dehydrogenase Troponin T C-Reactive Protein Total Protein Albumin Prealbumin Triglycerides Cholesterol LDL Cholesterol Direct HDL Cholesterol Urine pH Urine WBC (Auto) Urine Creatinine Urine Total Protein Vancomycin Trough Rheumatoid Factor Complement C4 Miscellaneous Test Crossmatch 11/12/16 11/13/16 11/13/16 23:55 05:53 11:43 WBC RBC Hgb Hct MCV MCH MCHC RDW Plt Count Lymph % (Auto) [place] % (Auto) Lymph # [place] # Baso # Seg Neutrophils % Seg Neuts % (Manual) Lymphocytes % (Manual) Monocytes % (Manual) Eosinophils % (Manual) Basophils % (Manual) Nucleated RBC % Seg Neutrophils # Seg Neutrophils # Man Lymphocytes # (Manual) Monocytes # (Manual) Eosinophils # (Manual) PT INR Fibrinogen dRVVT Confirm Interp Factor V Activity POC ABG pH POC ABG pCO2 POC ABG pO2 Sodium Potassium Chloride Carbon Dioxide BUN Creatinine Glucose POC Glucose 132 H 120 H 114 H Lactic Acid Calcium Phosphorus Magnesium Direct Bilirubin AST ALT Alkaline Phosphatase Lactate Dehydrogenase Troponin T C-Reactive Protein Total Protein Albumin Prealbumin Triglycerides Cholesterol LDL Cholesterol Direct HDL Cholesterol Urine pH Urine WBC (Auto) Urine Creatinine Urine Total Protein Vancomycin Trough Rheumatoid Factor Complement C4 Miscellaneous Test Crossmatch 11/13/16 11/13/16 11/13/16 17:09 23:41 Unknown WBC RBC Hgb Hct MCV MCH MCHC RDW Plt Count Lymph % (Auto) [place] % (Auto) Lymph # [place] # Baso # Seg Neutrophils % Seg Neuts % (Manual) Lymphocytes % (Manual) Monocytes % (Manual) Eosinophils % (Manual) Basophils % (Manual) Nucleated RBC % Seg Neutrophils # Seg Neutrophils # Man Lymphocytes # (Manual) Monocytes # (Manual) Eosinophils # (Manual) PT INR Fibrinogen dRVVT Confirm Interp Factor V Activity POC ABG pH POC ABG pCO2 POC ABG pO2 Sodium 135 L Potassium Chloride 95.2 L Carbon Dioxide BUN 52 H Creatinine 2.2 H Glucose POC Glucose 113 H 108 H Lactic Acid Calcium Phosphorus Magnesium Direct Bilirubin AST ALT Alkaline Phosphatase Lactate Dehydrogenase Troponin T C-Reactive Protein Total Protein Albumin Prealbumin Triglycerides Cholesterol LDL Cholesterol Direct HDL Cholesterol Urine pH Urine WBC (Auto) Urine Creatinine Urine Total Protein Vancomycin Trough Rheumatoid Factor Complement C4 Miscellaneous Test Crossmatch 11/15/16 11/15/16 11/15/16 00:37 03:30 03:30 WBC 11.2 H RBC 2.72 L Hgb 7.6 L Hct 23.4 L MCV MCH MCHC RDW 16.5 H Plt Count Lymph % (Auto) [place] % (Auto) Lymph # [place] # Baso # Seg Neutrophils % Seg Neuts % (Manual) Lymphocytes % (Manual) Monocytes % (Manual) Eosinophils % (Manual) Basophils % (Manual) Nucleated RBC % Seg Neutrophils # Seg Neutrophils # Man Lymphocytes # (Manual) Monocytes # (Manual) Eosinophils # (Manual) PT INR Fibrinogen dRVVT Confirm Interp Factor V Activity POC ABG pH POC ABG pCO2 POC ABG pO2 Sodium Potassium 3.4 L Chloride Carbon Dioxide BUN 25 H Creatinine 1.5 H Glucose 103 H POC Glucose 108 H Lactic Acid Calcium Phosphorus Magnesium Direct Bilirubin AST ALT Alkaline Phosphatase Lactate Dehydrogenase Troponin T C-Reactive Protein Total Protein Albumin Prealbumin Triglycerides Cholesterol LDL Cholesterol Direct HDL Cholesterol Urine pH Urine WBC (Auto) Urine Creatinine Urine Total Protein Vancomycin Trough Rheumatoid Factor Complement C4 Miscellaneous Test Crossmatch 11/15/16 11/15/16 11/15/16 05:04 11:50 21:28 WBC RBC Hgb Hct MCV MCH MCHC RDW Plt Count Lymph % (Auto) [place] % (Auto) Lymph # [place] # Baso # Seg Neutrophils % Seg Neuts % (Manual) Lymphocytes % (Manual) Monocytes % (Manual) Eosinophils % (Manual) Basophils % (Manual) Nucleated RBC % Seg Neutrophils # Seg Neutrophils # Man Lymphocytes # (Manual) Monocytes # (Manual) Eosinophils # (Manual) PT INR Fibrinogen dRVVT Confirm Interp Factor V Activity POC ABG pH 7.462 H POC ABG pCO2 POC ABG pO2 71 L Sodium Potassium Chloride Carbon Dioxide BUN Creatinine Glucose POC Glucose 121 H 144 H Lactic Acid Calcium Phosphorus Magnesium Direct Bilirubin AST ALT Alkaline Phosphatase Lactate Dehydrogenase Troponin T C-Reactive Protein Total Protein Albumin Prealbumin Triglycerides Cholesterol LDL Cholesterol Direct HDL Cholesterol Urine pH Urine WBC (Auto) Urine Creatinine Urine Total Protein Vancomycin Trough Rheumatoid Factor Complement C4 Miscellaneous Test Crossmatch 11/15/16 23:20 WBC RBC Hgb Hct MCV MCH MCHC RDW Plt Count Lymph % (Auto) [place] % (Auto) Lymph # [place] # Baso # Seg Neutrophils % Seg Neuts % (Manual) Lymphocytes % (Manual) Monocytes % (Manual) Eosinophils % (Manual) Basophils % (Manual) Nucleated RBC % Seg Neutrophils # Seg Neutrophils # Man Lymphocytes # (Manual) Monocytes # (Manual) Eosinophils # (Manual) PT INR Fibrinogen dRVVT Confirm Interp Factor V Activity POC ABG pH POC ABG pCO2 POC ABG pO2 Sodium Potassium Chloride Carbon Dioxide BUN Creatinine Glucose POC Glucose 116 H Lactic Acid Calcium Phosphorus Magnesium Direct Bilirubin AST ALT Alkaline Phosphatase Lactate Dehydrogenase Troponin T C-Reactive Protein Total Protein Albumin Prealbumin Triglycerides Cholesterol LDL Cholesterol Direct HDL Cholesterol Urine pH Urine WBC (Auto) Urine Creatinine Urine Total Protein Vancomycin Trough Rheumatoid Factor Complement C4 Miscellaneous Test Crossmatch Allied health notes reviewed: RT
--- NOTE | 2016-11-16 12:48 | Progress Note ---
Assessment and Plan - Patient Problems (1) Acute respiratory failure with hypoxia Current Visit: Yes Status: Acute (2) Dislodged gastrostomy tube Current Visit: Yes Status: Acute Plan to address problem: continue local care and TFs we will await until drainage less before replacing PEG Subjective Date of service: 11/16/16 Patient Reports: Positive: other (remains non-responsive) Objective Vital Signs - 12hr 11/16/16 11/16/16 11/16/16 01:00 02:00 02:54 Temperature Pulse Rate 113 H 112 H 113 H Respiratory 47 H 46 H Rate Blood Pressure 196/96 190/96 190/99 O2 Sat by Pulse 97 98 Oximetry 11/16/16 11/16/16 11/16/16 03:00 03:03 04:00 Temperature 99.6 F Pulse Rate 114 H 107 H 93 H Respiratory 48 H 25 H Rate Blood Pressure 198/100 198/100 169/82 O2 Sat by Pulse 97 97 100 Oximetry 11/16/16 11/16/16 11/16/16 05:00 05:38 06:00 Temperature Pulse Rate 104 H 89 114 H Respiratory 45 H 21 Rate Blood Pressure 200/101 160/82 149/77 O2 Sat by Pulse 99 97 Oximetry 11/16/16 11/16/16 11/16/16 07:00 07:15 08:00 Temperature 98.3 F Pulse Rate 112 H 91 H Respiratory 38 H 19 Rate Blood Pressure 228/140 221/125 125/67 O2 Sat by Pulse 98 99 Oximetry 11/16/16 11/16/16 08:48 10:35 Temperature Pulse Rate Respiratory Rate Blood Pressure 125/70 O2 Sat by Pulse 100 Oximetry - Abdomen soft, not tender, not distended, other (+ drainage from port sites) - Labs 11/15/16 03:30 11/15/16 03:30
[2016-11-16 13:28] LABS: Hematocrit 23.7 % (30.3-42.9); Hemoglobin 7.6 gm/dl (10.1-14.3); Mean Corpuscular HGB Conc 32 % (30-34); Mean Corpuscular Hemoglobin 28 pg (28-32); Mean Corpuscular Volume 87 fl (79-97); Platelet Count 344 K/mm3 (140-440); Red Blood Count 2.73 M/mm3 (3.65-5.03); Red Cell Distribution Width 16.6 % (13.2-15.2)
[2016-11-16] MEDS: DURAGESIC TD SCH (13:36)
[2016-11-16] MEDS ORDERED: NACL 0.9 (PRIMING MACHINE ONLY DIALYSIS) MC ONE (14:50)
[2016-11-16] MEDS ORDERED: NACL 0.9% 100 ML IV PRN (16:07)
[2016-11-16] MEDS: HEPARIN IV PRN (17:53)
--- NOTE | 2016-11-16 18:14 | Progress Note ---
Assessment and Plan Assessment and plan: 46-year-old woman with a history of hypertension, diabetes, asthma, hyperlipidemia, chronic kidney disease and anxiety , who was brought in by family because, she couldn't get her words out, her face was also twisted, she was admitted for acute CVA and accelerated hypertension, she had a hx of poor adherence with her medications, and uncontrolled htn. Patient's SBP on admission was noted be greater than 260. TPA was started but this was discontinued after 5 minutes because her blood pressure became uncontrolled. The TPA was not initiated again because the patient was outside the TPA window. Fever Had fever of 100.3 yesterday. ID Physician following. I have discussed case with her multiple times. Patient was recently on Cefepime and Vancomycin, now discontinued few days ago by ID Physician , to monitor off Antibiotics. chest x-ray, blood cultures were unremarkable, catheter site growing multiple organisms -Severe Sepsis with septic shock, recurrent. Patient with multiple episodes of sepsis. Initial episode due to presumed aspiration pneumonia and septic episode on 09/23 from candidemia then a third episode from peritonitis from gastric perforation from dislodged PEG , there was an abscess in the abdomen present at that time that was draining pus. +/-UTI. The latest episode was related to surgical site infection. Antibiotics discontinued few days ago. ID Physician to follow. Surgical wound infection/gram-negative sepsis/candidemia/peritonitis PEG has been removed She will need to be on tube feeds through NG tube for a month, and then either a gastrostomy or jejunostomy tube replaced after her GI wounds have healed and infection is cleared -continue wound care to ostomy sites JUANITA, now ESRD Likely due to vasomotor nephropathy and ATN given sepsis Nephrology input appreciated, continue hemodialysis as per Nephrology Creatinine 2.2 today Acute CVA with infarct. sp TPA Continue neuro checks. Neurology input appreciated, CT shows continued evolution of left MCA infarct with slight mass effect and edema, and there is no hemorrhage - PRINCE showed hyperdynamic with ef of 75%, neither clot nor septal defect seen - MRA Brain shows near complete occlusion of M2 and M3 of the left MCA - Repeat CT scan done on 09/11, shows stable findings - carotid doppler negative - Echo shows preserved systolic function but does show some left ventricular diastolic dysfunction - continue asa and statin for secondary ppx Paroxysmal atrial fibrillation. On Metoprolol Persistent vegetative state This patient's needs placement at either hospice or SNF -She was denied for LTACH Acute hypoxic respiratory failure requiring MV >96hrs Status post tracheostomy, continue to wean off vent, has been tolerating T piece Nosocomial acquired aspiration pneumonia/sepsis/UTI She had completed a course of antibiotics. Now on Cefepime and Vanco for fever Asthma/COPD exacerbation Now has trach Acute Toxic Metabolic encephalopathy. Multitifactorial, mostly secondary to evolution of CVA Hypertensive Emergency Now on Metoprolol, Cozaar,Hydralazine, Clonidine patch. Bilateral pleural effusion, s/p right thoracentesis today Paroxysmal atrial fibrillation with rapid ventricular rate, failed cardioversion Continue current medications, Not a candidate for anticoagulation secondary to anemia, thrombocytopenia, and massive CVA Hypokalemia/Hypomagnesemia/hypophosphatemia. Replete electrolytes as needed. Diabetes type 2. Continue sliding-scale regular insulin and Accu-Cheks. Hyperlipidemia. Continue statin Nutrition continue tube feeds Anemia requiring multiple transfusions/acute blood loss Has received total 13 units of PRBC this admission. Will continue to transfuse to keep Hemoglobin above 7 Hemoglobin 8.9, most recent Her POA is her Brother, Jam [phone] Disposition. Very poor prognosis. Plan is for SNF placement. She was denied by LTAC Will need to have family meeting to discuss goals of care, the patient is not recovering and will most likely benefit from DNR and Hospice placement The high probability of a clinically significant, sudden or life threatening deterioration of the [pulmonary] system(s) required my full and direct attention , intervention and personal management. The aggregate critical care time was [ 33 ] minutes. This time is in addition to time spent performing reported procedures but includes the following: [] Data Review and interpretation [] Patient assessment and monitoring of vital signs [] Documentation [] Medication orders and management History Interval history: She opens her eyes, but does not obey commands. Has tracheostomy in place , tolerating T piece Hospitalist Physical - Physical exam Narrative exam: General: Opens eyes, no distress, appears chronically ill HEENT: MMM, EOMI cardiac: S1-S2 heard lungs: ventilated breath sounds abdomen: soft, nontender, nondistended bowel sounds positive multiple ostomy bags noted, drainage is reduced extremities: no edema clubbing or cyanosis Skin: no rash or lesion Neuro: Status post tracheostomy, opens eyes, does not obey commands, right- sided weakness (i.e Right side less responsive to painful stimuli) - Constitutional Vitals: Temp Pulse Resp BP Pulse Ox 97.1 F L 108 H 39 H 222/111 97 11/16/16 17:50 11/16/16 18:00 11/16/16 18:00 11/16/16 18:01 11/16/16 14:00 General appearance: Present: no acute distress, obese, other (on vent, non- responsive) Results - Labs CBC & Chem 7: 11/17/16 03:20 11/17/16 03:20 Labs: Laboratory Last Values WBC 11.7 K/mm3 (4.5-11.0) H 11/16/16 12:20 RBC 2.73 M/mm3 (3.65-5.03) L 11/16/16 12:20 Hgb 7.6 gm/dl (10.1-14.3) L 11/16/16 12:20 Hct 23.7 % (30.3-42.9) L 11/16/16 12:20 MCV 87 fl (79-97) 11/16/16 12:20 MCH 28 pg (28-32) 11/16/16 12:20 MCHC 32 % (30-34) 11/16/16 12:20 RDW 16.6 % (13.2-15.2) H 11/16/16 12:20 Plt Count 344 K/mm3 (140-440) 11/16/16 12:20 Lymph % (Auto) 22.6 % (13.4-35.0) 11/11/16 06:59 [place] % (Auto) 10.8 % (0.0-7.3) H 11/11/16 06:59 Eos % (Auto) 0.9 % (0.0-4.3) 11/11/16 06:59 Baso % (Auto) 0.8 % (0.0-1.8) 11/11/16 06:59 Lymph # 2.1 K/mm3 (1.2-5.4) 11/11/16 06:59 [place] # 1.0 K/mm3 (0.0-0.8) H 11/11/16 06:59 Eos # 0.1 K/mm3 (0.0-0.4) 11/11/16 06:59 Baso # 0.1 K/mm3 (0.0-0.1) 11/11/16 06:59 Add Manual Diff Complete 10/27/16 06:30 Total Counted 100 10/27/16 06:30 Seg Neutrophils % 64.9 % (40.0-70.0) 11/11/16 06:59 Seg Neuts % (Manual) 78.0 % (40.0-70.0) H 10/27/16 06:30 Band Neutrophils % 0 % 10/27/16 06:30 Lymphocytes % (Manual) 14.0 % (13.4-35.0) 10/27/16 06:30 Reactive Lymphs % (Man) 0 % 10/27/16 06:30 Monocytes % (Manual) 7.0 % (0.0-7.3) 10/27/16 06:30 Eosinophils % (Manual) 0 % (0.0-4.3) 10/27/16 06:30 Basophils % (Manual) 1.0 % (0.0-1.8) 10/27/16 06:30 Metamyelocytes % 0 % 10/27/16 06:30 Myelocytes % 0 % 10/27/16 06:30 Promyelocytes % 0 % 10/27/16 06:30 Blast Cells % 0 % 10/27/16 06:30 Nucleated RBC % 2.0 % (0.0-0.9) H 10/27/16 06:30 Seg Neutrophils # 5.9 K/mm3 (1.8-7.7) 11/11/16 06:59 Seg Neutrophils # Man 10.8 K/mm3 (1.8-7.7) H 10/27/16 06:30 Band Neutrophils # 0.0 K/mm3 10/27/16 06:30 Lymphocytes # (Manual) 1.9 K/mm3 (1.2-5.4) 10/27/16 06:30 Abs React Lymphs (Man) 0.0 K/mm3 10/27/16 06:30 Monocytes # (Manual) 1.0 K/mm3 (0.0-0.8) H 10/27/16 06:30 Eosinophils # (Manual) 0.0 K/mm3 (0.0-0.4) 10/27/16 06:30 Basophils # (Manual) 0.1 K/mm3 (0.0-0.1) 10/27/16 06:30 Metamyelocytes # 0.0 K/mm3 10/27/16 06:30 Myelocytes # 0.0 K/mm3 10/27/16 06:30 Promyelocytes # 0.0 K/mm3 10/27/16 06:30 Blast Cells # 0.0 K/mm3 10/27/16 06:30 Pathologist Review 09/13/16 04:00 WBC Morphology Not Reportable 10/27/16 06:30 Hypersegmented Neuts Not Reportable 10/27/16 06:30 Hyposegmented Neuts Not Reportable 10/27/16 06:30 Hypogranular Neuts Not Reportable 10/27/16 06:30 Smudge Cells Not Reportable 10/27/16 06:30 Toxic Granulation Not Reportable 10/27/16 06:30 Toxic Vacuolation Not Reportable 10/27/16 06:30 Dohle Bodies Not Reportable 10/27/16 06:30 Pelger-Huet Anomaly Not Reportable 10/27/16 06:30 Jasmina Rods Not Reportable 10/27/16 06:30 Platelet Estimate Cons 10/27/16 06:30 Clumped Platelets Not Reportable 10/27/16 06:30 Plt Clumps, EDTA Not Reportable 10/27/16 06:30 Large Platelets Few 10/27/16 06:30 Giant Platelets Not Reportable 10/27/16 06:30 Platelet Satelliting Not Reportable 10/27/16 06:30 Plt Morphology Comment Not Reportable 10/27/16 06:30 RBC Morphology Not Reportable 10/27/16 06:30 Dimorphic RBCs Not Reportable 10/27/16 06:30 Polychromasia Not Reportable 10/27/16 06:30 Hypochromasia Not Reportable 10/27/16 06:30 Poikilocytosis Not Reportable 10/27/16 06:30 Anisocytosis 1+ 10/27/16 06:30 Microcytosis Not Reportable 10/27/16 06:30 Macrocytosis Not Reportable 10/27/16 06:30 Spherocytes Not Reportable 10/27/16 06:30 Pappenheimer Bodies Not Reportable 10/27/16 06:30 Sickle Cells Not Reportable 10/27/16 06:30 Target Cells Not Reportable 10/27/16 06:30 Tear Drop Cells Not Reportable 10/27/16 06:30 Ovalocytes Not Reportable 10/27/16 06:30 Stomatocytes Few 10/06/16 03:50 Helmet Cells Not Reportable 10/27/16 06:30 [place] Bodies Not Reportable 10/27/16 06:30 [place] Rings Not Reportable 10/27/16 06:30 [place] Cells Not Reportable 10/27/16 06:30 Bite Cells Not Reportable 10/27/16 06:30 Crenated Cell Not Reportable 10/27/16 06:30 Elliptocytes Not Reportable 10/27/16 06:30 Acanthocytes (Spur) Not Reportable 10/27/16 06:30 Rouleaux Not Reportable 10/27/16 06:30 Hemoglobin C Crystals Not Reportable 10/27/16 06:30 Schistocytes Not Reportable 10/27/16 06:30 Malaria parasites Not Reportable 10/27/16 06:30 ESR > 140.0 mm/Hr (0-20) 09/08/16 11:48 Jun Bodies Not Reportable 10/27/16 06:30 Hem Pathologist Commnt No 10/27/16 06:30 PT 14.9 Sec. (12.2-14.9) 11/11/16 09:50 INR 1.18 (0.87-1.13) H 11/11/16 09:50 APTT 33.0 Sec. (24.2-36.6) 10/09/16 03:45 Thrombin Time 16.8 Sec. (15.1-19.6) 09/03/16 00:10 Fibrinogen 750 mg/dl (211-480) H 09/08/16 11:48 Lupus Anticoagulant see below 09/12/16 09:59 LA PTT Baseline See scanned report 09/12/16 09:59 dRVVT Confirm Interp Positive (Negative) H 09/12/16 09:59 dRVVT Screen 50:50 See scanned report 09/12/16 09:59 dRVVT Mix Interpret See scanned report 09/12/16 09:59 Protein C Antigen 122 % (70-140) 09/08/16 15:35 Free Protein S 97 % normal (50-147) 09/08/16 15:35 Total Protein S 109 % (70-140) 09/08/16 15:35 Antithrombin III Ag 100 % (80-120) 09/08/16 15:35 Heparin Anti-Xa, Unfract Negative (Negative) 09/29/16 13:35 Factor V Activity 182 % (65-150) H 09/08/16 15:35 POC ABG pH 7.462 (7.35-7.45) H 11/15/16 21:28 POC ABG pCO2 36.4 (35-45) 11/15/16 21:28 POC ABG pO2 71 (80-105) L 11/15/16 21:28 POC ABG HCO3 26.0 11/15/16 21:28 POC ABG Total CO2 27 11/15/16 21:28 POC ABG O2 Sat 95 11/15/16 21:28 POC ABG Base Excess 2 11/15/16 21:28 FiO2 28 % 11/15/16 21:28 Sodium 141 mmol/L (137-145) 11/15/16 03:30 Potassium 3.4 mmol/L (3.6-5.0) L 11/15/16 03:30 Chloride 103.9 mmol/L (98-107) 11/15/16 03:30 Carbon Dioxide 24 mmol/L (22-30) 11/15/16 03:30 Anion Gap 17 mmol/L 11/15/16 03:30 BUN 25 mg/dL (7-17) H 11/15/16 03:30 Creatinine 1.5 mg/dL (0.7-1.2) H 11/15/16 03:30 Estimated GFR 45 ml/min 11/15/16 03:30 BUN/Creatinine Ratio 16.66 % 11/15/16 03:30 Glucose 103 mg/dL (65-100) H 11/15/16 03:30 POC Glucose 105 (70-105) 11/16/16 05:07 Osmolality 351 Mosm/kg 09/16/16 11:47 Lactic Acid 4.50 mmol/L (0.7-2.0) H* 09/28/16 07:25 Calcium 8.7 mg/dL (8.4-10.2) 11/15/16 03:30 Phosphorus 4.40 mg/dL (2.5-4.5) 11/07/16 06:30 Magnesium 2.20 mg/dL (1.7-2.3) 11/07/16 06:30 Total Bilirubin 0.20 mg/dL (0.1-1.2) 11/06/16 06:25 Direct Bilirubin 0.3 mg/dL (0-0.2) H 10/10/16 05:00 Indirect Bilirubin 0.1 mg/dL 10/10/16 05:00 AST 103 units/L (5-40) H 11/06/16 06:25 ALT 77 units/L (7-56) H 11/06/16 06:25 Alkaline Phosphatase 285 units/L (35-129) H 11/06/16 06:25 Ammonia 27.0 umol/L (25-60) 09/07/16 08:37 Lactate Dehydrogenase 196 units/L (91-180) H 11/11/16 06:59 Total Creatine Kinase 121 units/L (30-135) 09/29/16 20:12 CK-MB (CK-2) < 1.0 ng/mL (0.0-4.0) 09/29/16 20:12 CK-MB (CK-2) Rel Index 0.8 (0-4) 09/29/16 20:12 Troponin T 0.204 ng/mL (0.00-0.029) H* 09/29/16 20:12 C-Reactive Protein 11.40 mg/dL (0.00-1.30) H 11/05/16 13:25 Total Protein 6.1 g/dL (6.3-8.2) L 11/11/16 06:59 Albumin 1.8 g/dL (3.9-5) L 11/06/16 06:25 Albumin/Globulin Ratio 0.4 % 11/06/16 06:25 Prealbumin 0.180 g/L (0.200-0.400) L 11/06/16 06:25 Triglycerides 137 mg/dL (2-149) 09/29/16 20:12 Cholesterol 31 mg/dL (50-199) L 09/29/16 20:12 LDL Cholesterol Direct 4 mg/dL (50-130) L 09/29/16 20:12 HDL Cholesterol 3 mg/dL (40-59) L 09/29/16 20:12 Cholesterol/HDL Ratio 10.33 % 09/29/16 20:12 Angiotensin Convert Enz See scanned report 09/08/16 11:48 Renin 0.99 ng/mL/h (0.25-5.82) 10/07/16 10:56 Aldosterone <1 ng/dL () 10/07/16 10:56 Aldosterone/Renin Dir see below 10/07/16 10:56 Serotonin Release Assay See scanned report 09/29/16 13:35 TSH 1.010 mlU/mL (0.270-4.200) 09/07/16 08:37 HCG, Qual Negative (Negative) 09/03/16 00:10 Urine Color Yellow (Yellow) 11/05/16 13:09 Urine Turbidity Clear (Clear) 11/05/16 13:09 Urine pH 9.0 (5.0-7.0) H 11/05/16 13:09 Ur Specific [place] 1.011 (1.003-1.030) 11/05/16 13:09 Urine Protein 100 mg/dl mg/dL (Negative) 11/05/16 13:09 Urine Glucose (UA) Neg mg/dL (Negative) 11/05/16 13:09 Urine Ketones Neg mg/dL (Negative) 11/05/16 13:09 Urine Blood Neg (Negative) 11/05/16 13:09 Urine Nitrite Neg (Negative) 11/05/16 13:09 Urine Bilirubin Neg (Negative) 11/05/16 13:09 Urine Urobilinogen < 2.0 mg/dL (<2.0) 11/05/16 13:09 Ur Leukocyte Esterase Neg (Negative) 11/05/16 13:09 Urine WBC (Auto) 4.0 /HPF (0.0-6.0) 11/05/16 13:09 Urine RBC (Auto) 1.0 /HPF (0.0-6.0) 11/05/16 13:09 U Epithel Cells (Auto) 1.0 /HPF (0-13.0) 10/07/16 18:30 Urine Bacteria (Auto) 4+ /HPF (Negative) 11/05/16 13:09 Urine WBC Clumps 2+ /HPF 09/07/16 02:47 Hyaline Casts 4 /LPF 09/07/16 02:47 Urine Mucus Few /HPF 10/07/16 18:30 Urine Yeast (Budding) 3+ /HPF 10/07/16 18:30 Urine Eosinophils None seen (None Seen) 09/07/16 16:00 Urine Total Volume 950 11/12/16 10:18 Urine Creatinine 19.7 mg/dL (0.1-20.0) 11/12/16 10:18 Height (in) 65.0 inches 11/12/16 10:18 Weight (lb) 181.0 lbs 11/12/16 10:18 Creatinine Clearance 5 11/12/16 10:18 Urine Sodium 36 mEq/L 09/16/16 19:19 Urine Total Protein 16 mg/dL (5-11.8) H 09/16/16 19:19 Vancomycin Trough 2.3 ug/mL (5.0-20.0) L 09/21/16 13:00 Random Vancomycin 24.7 ug/mL (0-40.0) 11/12/16 04:00 Urine Opiates Screen Presumptive negative 09/03/16 15:11 Urine Methadone Screen Presumptive positive 09/03/16 15:11 Ur Barbiturates Screen Presumptive positive 09/03/16 15:11 Ur Phencyclidine Scrn Presumptive negative 09/03/16 15:11 Ur Amphetamines Screen Presumptive negative 09/03/16 15:11 U Benzodiazepines Scrn Presumptive negative 09/03/16 15:11 Urine Cocaine Screen Presumptive negative 09/03/16 15:11 U Marijuana (THC) Screen Presumptive positive 09/03/16 15:11 Drugs of Abuse Note Disclamer 09/03/16 15:11 Rheumatoid Factor 24 IU/ml (0-13) H 09/08/16 11:48 SAHIL Screen Negative (Negative) 09/07/16 09:20 Proteinase 3 (PR3) Ab <1.0 AI (<1.0) 09/07/16 09:20 Myeloperoxidase Ab <1.0 AI (<1.0) 09/07/16 09:20 Sjogren's Antibody <1.0 AI (<1.0) 09/08/16 15:35 Scl-70 Scleroderma Ab <1.0 AI (<1.0) 09/08/16 15:35 Centromere B Antibody <1.0 AI (<1.0) 09/08/16 12:02 Heparin-induced Plt Ab Negative (Negative) 09/29/16 13:35 UF Heparin High Dose 11 % Release 08/10/17 13:35 SUDHIR UFH Low Dose 0.1 6 % Release 09/29/16 13:35 SUDHIR UFH Low Dose 0.5 8 % Release 09/29/16 13:35 Cardiolipid IgG Ab <14 GPL (<=14) 09/12/16 09:59 Cardiolipid IgA Ab <11 APL (<=11) 09/12/16 09:59 Cardiolipid IgM Ab <12 MPL (<=12) 09/12/16 09:59 Complement C3 148 mg/dL (90-180) 09/07/16 09:20 Complement C4 58 mg/dL (16-47) H 09/07/16 09:20 RPR Nonreactive (Nonreactive) 09/08/16 11:48 Hepatitis A IgM Ab Non-reactive (NonReactive) 09/24/16 14:40 Hep Bs Antigen Non-reactive (Negative) 09/24/16 14:40 Hep B Core IgM Ab Non-reactive (NonReactive) 09/24/16 14:40 Hepatitis C Antibody Non-reactive (NonReactive) 09/24/16 14:40 HIV 1&2 Antibody Rapid Non react (Non React) 09/08/16 11:48 HIV P24 Antigen Non react (Non React) 09/08/16 11:48 Miscellaneous Test Flexitest 1 H 11/05/16 13:25 Blood Type A POSITIVE 11/07/16 09:37 Antibody Screen Negative 11/07/16 09:37 DELORIS Antibody Screen Negative 09/25/16 10:30 Crossmatch See Detail 11/07/16 09:37
[2016-11-17] MEDS: LOPRESSOR FEEDTUBE SCH ×3 (02:47→23:24)
[2016-11-17 05:42] LABS: Basophils # (Auto) 0.1 K/mm3 (0.0-0.1); Basophils % (Auto) 0.7 % (0.0-1.8); Eosinophils # (Auto) 0.2 K/mm3 (0.0-0.4); Eosinophils % (Auto) 2.5 % (0.0-4.3); Hematocrit 21.9 % (30.3-42.9); Hemoglobin 7.3 gm/dl (10.1-14.3); Lymphocytes # (Auto) 2.8 K/mm3 (1.2-5.4); Lymphocytes % (Auto) 29.3 % (13.4-35.0); Mean Corpuscular HGB Conc 34 % (30-34); Mean Corpuscular Hemoglobin 29 pg (28-32); Mean Corpuscular Volume 86 fl (79-97); Monocytes # (Auto) 1.1 K/mm3 (0.0-0.8); Monocytes % (Auto) 11.5 % (0.0-7.3); Platelet Count 244 K/mm3 (140-440); Red Blood Count 2.55 M/mm3 (3.65-5.03); Red Cell Distribution Width 16.6 % (13.2-15.2)
[2016-11-17 05:52] LABS: INR 1.37 (0.87-1.13)
[2016-11-17 06:07] LABS: BUN/Creatinine Ratio 17.5; Calcium 7.9 mg/dL (8.4-10.2)
[2016-11-17] MEDS: MORPHINE IV PRN (06:27)
[2016-11-17] MEDS: APRESOLINE PO SCH ×3 (06:27→23:26)
[2016-11-17] MEDS: HumuLIN R SUB-Q SCH ×2 (07:54→13:06)
[2016-11-17] MEDS: APRESOLINE IV PRN (08:07)
--- NOTE | 2016-11-17 08:40 | Progress Note ---
Assessment and Plan Assessment * Oliguric acute kidney injury secondary to ATN on CKD - baseline SCr 1.7mg/dL --24H urine CrCl 15ml/min on Sep 21 --24h urine CrCl 5ml/min Nov 13 * s/p Sepsis * s/p Candidemia * s/p GI bleed * Acute CVA - left MCA with midline shift * Acute hypoxic respiratory failure * Left renal artery stenosis * Anemia * Hypertension Plan: * Continue HD MWF. UF as tolerated * Transfusion of pRBC per primary team - Hb 7.3 today * Continue antiHTN medications * Add Nifedipine XL 60mg daily * Dose medications for renal function * Avoid potential nephrotoxins Subjective Date of service: 11/17/16 Principal diagnosis: Acute resp failure on MVS; S/P Acute CVA; Acute Encephalopathy; JUANITA Interval history: No acute events overnight. Objective - Vital Signs Vital signs: Vital Signs - 12hr 11/16/16 11/16/16 11/16/16 21:00 21:52 22:00 Temperature Pulse Rate 90 101 H 101 H Respiratory 23 34 H Rate Blood Pressure 148/73 183/91 180/92 O2 Sat by Pulse 96 96 Oximetry O2 Sat by Pulse Oximetry [ Assessment] 11/16/16 11/16/16 11/17/16 23:00 23:34 00:00 Temperature 99.4 F Pulse Rate 107 H 103 H Respiratory 34 H 34 H Rate Blood Pressure 183/94 190/91 O2 Sat by Pulse 94 94 95 Oximetry O2 Sat by Pulse 95 Oximetry [ Assessment] 11/17/16 11/17/16 11/17/16 01:00 02:00 02:47 Temperature Pulse Rate 107 H 108 H 94 H Respiratory 34 H 38 H Rate Blood Pressure 168/93 172/97 167/90 O2 Sat by Pulse 97 95 Oximetry O2 Sat by Pulse Oximetry [ Assessment] 11/17/16 11/17/16 11/17/16 03:00 04:00 05:00 Temperature 98.9 F Pulse Rate 99 H 97 H 104 H Respiratory 35 H 31 H 22 Rate Blood Pressure 154/94 179/95 177/97 O2 Sat by Pulse 96 96 95 Oximetry O2 Sat by Pulse Oximetry [ Assessment] 11/17/16 11/17/16 11/17/16 06:00 06:27 07:00 Temperature Pulse Rate 105 H 98 H 88 Respiratory 21 17 Rate Blood Pressure 221/113 221/113 188/102 O2 Sat by Pulse Oximetry O2 Sat by Pulse Oximetry [ Assessment] 11/17/16 11/17/16 11/17/16 07:54 08:00 08:07 Temperature 98.5 F Pulse Rate 92 H 99 H Respiratory 23 Rate Blood Pressure 202/109 220/120 O2 Sat by Pulse Oximetry O2 Sat by Pulse Oximetry [ Assessment] 11/17/16 11/17/16 08:25 08:27 Temperature Pulse Rate Respiratory Rate Blood Pressure O2 Sat by Pulse 95 Oximetry O2 Sat by Pulse 96 Oximetry [ Assessment] - General Appearance General appearance: well-developed, intubated EENT: ATNC Respiratory: Present: Other (coarse ant breath sounds) Cardiology: regular, S1S2 Gastrointestinal: obese Musculoskeletal: other (trace edema) - Lab 11/17/16 03:20 11/17/16 03:20 Most recent lab results Calcium 7.9 mg/dL (8.4-10.2) L 11/17/16 03:20 Phosphorus 4.40 mg/dL (2.5-4.5) 11/07/16 06:30 Magnesium 2.20 mg/dL (1.7-2.3) 11/07/16 06:30 Urine Creatinine 19.7 mg/dL (0.1-20.0) 11/12/16 10:18 Urine Sodium 36 mEq/L 09/16/16 19:19 Urine Total Protein 16 mg/dL (5-11.8) H 09/16/16 19:19
[2016-11-17] MEDS ORDERED: PROCARDIA XL PO SCH (10:00)
[2016-11-17] MEDS: COZAAR PO SCH (10:00)
[2016-11-17] MEDS: PROTONIX FEEDTUBE SCH (10:00)
[2016-11-17] MEDS: NORVASC PO SCH (10:00)
[2016-11-17] MEDS: QUESTRAN PO SCH (10:00)
--- NOTE | 2016-11-17 10:43 | Progress Note ---
Assessment and Plan Patient is improving slightly. WBC is better and drainage appears to be better this AM. Will wait for drainage to stop prior to plan for PEG. Subjective Date of service: 11/17/16 Patient Reports: Negative: no new complaints (Patient is non-verbal), voiding w/ o difficulty, afebrile Objective Vital Signs - 12hr 11/16/16 11/16/16 11/17/16 23:00 23:34 00:00 Temperature 99.4 F Pulse Rate 107 H 103 H Respiratory 34 H 34 H Rate Blood Pressure 183/94 190/91 O2 Sat by Pulse 94 94 95 Oximetry O2 Sat by Pulse 95 Oximetry [ Assessment] 11/17/16 11/17/16 11/17/16 01:00 02:00 02:47 Temperature Pulse Rate 107 H 108 H 94 H Respiratory 34 H 38 H Rate Blood Pressure 168/93 172/97 167/90 O2 Sat by Pulse 97 95 Oximetry O2 Sat by Pulse Oximetry [ Assessment] 11/17/16 11/17/16 11/17/16 03:00 04:00 05:00 Temperature 98.9 F Pulse Rate 99 H 97 H 104 H Respiratory 35 H 31 H 22 Rate Blood Pressure 154/94 179/95 177/97 O2 Sat by Pulse 96 96 95 Oximetry O2 Sat by Pulse Oximetry [ Assessment] 11/17/16 11/17/16 11/17/16 06:00 06:27 07:00 Temperature Pulse Rate 105 H 98 H 88 Respiratory 21 17 Rate Blood Pressure 221/113 221/113 188/102 O2 Sat by Pulse Oximetry O2 Sat by Pulse Oximetry [ Assessment] 11/17/16 11/17/16 11/17/16 07:54 08:00 08:07 Temperature 98.5 F Pulse Rate 92 H 99 H Respiratory 23 Rate Blood Pressure 202/109 220/120 O2 Sat by Pulse Oximetry O2 Sat by Pulse Oximetry [ Assessment] 11/17/16 11/17/16 08:25 08:27 Temperature Pulse Rate Respiratory Rate Blood Pressure O2 Sat by Pulse 95 Oximetry O2 Sat by Pulse 96 Oximetry [ Assessment] - General physical appearance well nourished, moderate distress, chronically ill, obese - Eyes other (Able to track movements) - Respiratory normal expansion, normal respiratory effort, other (Coarse breath sounds) - Abdomen soft, not tender, bowel sounds normal, not rebound, not guarding, not rigid, surgical scars (continue to drain minimal ammount at the moment) - Labs 11/17/16 03:20 11/17/16 03:20 Diabetes panel 11/17/16 Range/Units 03:20 Sodium 140 (137-145) mmol/L Potassium 3.5 L (3.6-5.0) mmol/L Chloride 100.0 (98-107) mmol/L Carbon Dioxide 26 (22-30) mmol/L BUN 21 H (7-17) mg/dL Creatinine 1.2 (0.7-1.2) mg/dL Glucose 100 (65-100) mg/dL Calcium 7.9 L (8.4-10.2) mg/dL Calcium panel 11/17/16 Range/Units 03:20 Calcium 7.9 L (8.4-10.2) mg/dL Pituitary panel 11/17/16 Range/Units 03:20 Sodium 140 (137-145) mmol/L Potassium 3.5 L (3.6-5.0) mmol/L Chloride 100.0 (98-107) mmol/L Carbon Dioxide 26 (22-30) mmol/L BUN 21 H (7-17) mg/dL Creatinine 1.2 (0.7-1.2) mg/dL Glucose 100 (65-100) mg/dL Calcium 7.9 L (8.4-10.2) mg/dL Adrenal panel 11/17/16 Range/Units 03:20 Sodium 140 (137-145) mmol/L Potassium 3.5 L (3.6-5.0) mmol/L Chloride 100.0 (98-107) mmol/L Carbon Dioxide 26 (22-30) mmol/L BUN 21 H (7-17) mg/dL Creatinine 1.2 (0.7-1.2) mg/dL Glucose 100 (65-100) mg/dL Calcium 7.9 L (8.4-10.2) mg/dL
--- NOTE | 2016-11-17 11:01 | Progress Note ---
Assessment and Plan (1) Acute respiratory failure with hypoxia Current Visit: Yes Status: Acute Plan to address problem: - continue aspiration precautions - continue to wean oxygen for MAP > 94% - continue bronchodilators and pulmonary toilet - s/p tracheostomy - continue scopolamine - ABG's prn at this point for increased work of breathing or other resp distress - will send for right thoracentesis re: moderate effusion with the hope that it aids RTC t-piece tolerance - follow thoracentesis studies (no growth) - continue t-piece trials RTC as tolerated - repeat ABG at 9pm tonight (2) Acute CVA (cerebrovascular accident) Current Visit: Yes Status: Acute Plan to address problem: - Left MCA teritory stroke - seen by neurology and prognosis for recovery of mental status guarded to poor - optimizing secondary prevention modalities now (BP, lipid anti-platelet therapy) - off systemic steroids now (started earlier for edema) - clinically mild improvement (3) Hypertensive emergency Current Visit: Yes Status: Acute Plan to address problem: - continue antihypertensives (on metoprolol, clonidine and cozaar) - use prn hydralazine - resume sedation while on MVS (4) Obesity (BMI 35.0-39.9 without comorbidity) Current Visit: Yes Status: Chronic Plan to address problem: - now at goal rate on tube feeding - stopped TPN (5) Type 2 diabetes mellitus Current Visit: Yes Status: Chronic Qualifiers: Diabetes mellitus complication status: D Diabetes mellitus complication detail: D Diabetic retinopathy severity: D Proliferative retinopathy type: P Diabetes mellitus macular edema: D Diabetes mellitus usp insulin use : D Laterality: L Chronic kidney disease stage: C Plan to address problem: - continue SSI - discontinued lantus prior re: hypoglycemia - target BG's <180 mg/dl (6) Leukocytosis (leucocytosis) Current Visit: Yes Status: Acute Qualifiers: Leukocytosis type: leukemoid reaction Qualified Code(s): D72.823 - Leukemoid reaction Plan to address problem: - resolved - see sepsis section below (7) Agitation Current Visit: Yes Status: Acute Plan to address problem: - prn sedation / analgesia - tapered off seroquel for now (8) Atrial fibrillation Current Visit: Yes Status: Acute Qualifiers: Atrial fibrillation type: A Plan to address problem: - off amiodarone - continue p.o. metoprolol scheduled at 50mg q6h and adjust as necessary (9) JUANITA (acute kidney injury) Current Visit: Yes Status: Acute Plan to address problem: - on Dialysis now - continue HD/UF per nephrology recommendations - s/p tunnelled vas-cath - HD/UF -- (10) Pyrexia of unknown origin Current Visit: Yes Status: Acute Plan to address problem: - dopplers negative for DVT - continue to treat with Anti-infectives (11) Severe sepsis Current Visit: Yes Status: Acute Plan to address problem: - resume vasopressors for MAP < 60mmHg not responsive to volume - continue and complete anti-infectives per ID recs - VRE in urine noted; ? colonizer at this point - continue contact precautions - PSAR noted on trach aspirate from 11/07/16 (? Colonizer) - catheter tip however with >15CFU GNR growing now and may well be same organism (await ID- if that's the case however she is on appropriate AB's therapy) - clinically more stable overall (12) Emesis Current Visit: Yes Status: Acute Qualifiers: Vomiting type: V Vomiting Intractability: V Nausea presence: N Plan to address problem: - s/p surgical repair of gastric perforation - continue TPN for now - follow surgery recommendations re: feeding and new PEG tube - now tolerating tube feeds at goal rate (13) Dysphagia, oropharyngeal Current Visit: Yes Status: Acute Plan to address problem: - discussed with surgeon and she will be best served with continued treatment with anti-infectives as well as time for the GI tract and her wounds to heal before replacing the PEG tube - continue DHT feeding (14) Discharge planning issues Current Visit: Yes Status: Acute Plan to address problem: - she remains critically ill on life sustaining interventions including MVS and at risk for further acute deterioration including - BP's running high into the 200's systolic; have adjusted and added new meds and hopefully can transfer to telemetry later today or in am .....30' 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 Subjective Date of service: 11/17/16 Principal diagnosis: Acute resp failure on MVS; S/P Acute CVA; Acute Encephalopathy; JUANITA Interval history: Seen and examined at bedside; 24 hour events reviewed; nursing and respiratory care staff consulted; no adverse overnight events reported to me; remains on T- piece and tolerating very well; resting peacefully; no emesis or overt aspiration and no gross bleeding Objective Vital Signs - 12hr 11/16/16 11/17/16 11/17/16 23:34 00:00 01:00 Temperature 99.4 F Pulse Rate 103 H 107 H Respiratory 34 H 34 H Rate Blood Pressure 190/91 168/93 O2 Sat by Pulse 94 95 97 Oximetry O2 Sat by Pulse 95 Oximetry [ Assessment] 11/17/16 11/17/16 11/17/16 02:00 02:47 03:00 Temperature Pulse Rate 108 H 94 H 99 H Respiratory 38 H 35 H Rate Blood Pressure 172/97 167/90 154/94 O2 Sat by Pulse 95 96 Oximetry O2 Sat by Pulse Oximetry [ Assessment] 11/17/16 11/17/16 11/17/16 04:00 05:00 06:00 Temperature 98.9 F Pulse Rate 97 H 104 H 105 H Respiratory 31 H 22 21 Rate Blood Pressure 179/95 177/97 221/113 O2 Sat by Pulse 96 95 Oximetry O2 Sat by Pulse Oximetry [ Assessment] 11/17/16 11/17/16 11/17/16 06:27 07:00 07:54 Temperature 98.5 F Pulse Rate 98 H 88 Respiratory 17 Rate Blood Pressure 221/113 188/102 O2 Sat by Pulse Oximetry O2 Sat by Pulse Oximetry [ Assessment] 11/17/16 11/17/16 11/17/16 08:00 08:07 08:25 Temperature Pulse Rate 92 H 99 H Respiratory 23 Rate Blood Pressure 202/109 220/120 O2 Sat by Pulse 95 Oximetry O2 Sat by Pulse Oximetry [ Assessment] 11/17/16 08:27 Temperature Pulse Rate Respiratory Rate Blood Pressure O2 Sat by Pulse Oximetry O2 Sat by Pulse 96 Oximetry [ Assessment] Constitutional: no acute distress, other (eyes open; tracking movements) Eyes: non-icteric, other (tracheostomy tube in midline of neck) ENT: oropharynx moist Neck: supple, no lymphadenopathy Effort: mildly labored Ascultation: Bilateral: diminished breath sounds (bases), rhonchi Cardiovascular: regular rate and rhythm Gastrointestinal: hypoactive bowel sounds, soft, non-tender, non-distended, other (RLQ stomas with colostomy bags) Integumentary: other (healing back burn-like injury) Extremities: no cyanosis, no edema, pulses normal, no ischemia or petechiae Neurologic: pupils equal and round, other (encephalopathic) Psychiatric: other (unable to assess) CBC and BMP: 11/17/16 03:20 11/17/16 03:20 ABG, PT/INR, D-dimer: ABG POC ABG pH 7.462 (7.35-7.45) H 11/15/16 21:28 POC ABG pCO2 36.4 (35-45) 11/15/16 21:28 POC ABG pO2 71 (80-105) L 11/15/16 21:28 POC ABG HCO3 26.0 11/15/16 21:28 POC ABG Total CO2 27 11/15/16 21:28 POC ABG O2 Sat 95 11/15/16 21:28 PT/INR, D-dimer PT 16.8 Sec. (12.2-14.9) H 11/17/16 03:20 INR 1.37 (0.87-1.13) H 11/17/16 03:20 Abnormal lab findings: Abnormal Labs 09/03/16 09/03/16 09/03/16 12:12 15:07 16:20 WBC RBC Hgb Hct MCV MCH MCHC RDW Plt Count Lymph % (Auto) [place] % (Auto) Lymph # [place] # Baso # Seg Neutrophils % Seg Neuts % (Manual) Lymphocytes % (Manual) Monocytes % (Manual) Eosinophils % (Manual) Basophils % (Manual) Nucleated RBC % Seg Neutrophils # Seg Neutrophils # Man Lymphocytes # (Manual) Monocytes # (Manual) Eosinophils # (Manual) PT INR Fibrinogen dRVVT Confirm Interp Factor V Activity POC ABG pH 7.452 H POC ABG pCO2 POC ABG pO2 Sodium Potassium Chloride Carbon Dioxide BUN Creatinine Glucose POC Glucose 178 H Lactic Acid Calcium Phosphorus 2.20 L Magnesium 1.60 L Direct Bilirubin AST ALT Alkaline Phosphatase Lactate Dehydrogenase Troponin T C-Reactive Protein Total Protein Albumin Prealbumin Triglycerides Cholesterol LDL Cholesterol Direct HDL Cholesterol Urine pH Urine WBC (Auto) Urine Creatinine Urine Total Protein Vancomycin Trough Rheumatoid Factor Complement C4 Miscellaneous Test Crossmatch 09/03/16 09/03/16 09/03/16 17:57 17:58 23:50 WBC RBC Hgb Hct MCV MCH MCHC RDW Plt Count Lymph % (Auto) [place] % (Auto) Lymph # [place] # Baso # Seg Neutrophils % Seg Neuts % (Manual) Lymphocytes % (Manual) Monocytes % (Manual) Eosinophils % (Manual) Basophils % (Manual) Nucleated RBC % Seg Neutrophils # Seg Neutrophils # Man Lymphocytes # (Manual) Monocytes # (Manual) Eosinophils # (Manual) PT INR Fibrinogen dRVVT Confirm Interp Factor V Activity POC ABG pH POC ABG pCO2 POC ABG pO2 Sodium Potassium Chloride Carbon Dioxide BUN Creatinine Glucose POC Glucose 162 H 145 H Lactic Acid Calcium Phosphorus 2.30 L Magnesium Direct Bilirubin AST ALT Alkaline Phosphatase Lactate Dehydrogenase Troponin T C-Reactive Protein Total Protein Albumin Prealbumin Triglycerides Cholesterol LDL Cholesterol Direct HDL Cholesterol Urine pH Urine WBC (Auto) Urine Creatinine Urine Total Protein Vancomycin Trough Rheumatoid Factor Complement C4 Miscellaneous Test Crossmatch 09/04/16 09/04/16 09/04/16 03:31 03:31 05:42 WBC RBC Hgb 9.7 L D Hct MCV 72 L MCH 23 L MCHC RDW 17.5 H Plt Count Lymph % (Auto) 11.1 L [place] % (Auto) Lymph # [place] # Baso # Seg Neutrophils % 84.3 H Seg Neuts % (Manual) Lymphocytes % (Manual) Monocytes % (Manual) Eosinophils % (Manual) Basophils % (Manual) Nucleated RBC % Seg Neutrophils # 8.9 H Seg Neutrophils # Man Lymphocytes # (Manual) Monocytes # (Manual) Eosinophils # (Manual) PT INR Fibrinogen dRVVT Confirm Interp Factor V Activity POC ABG pH POC ABG pCO2 POC ABG pO2 Sodium 135 L Potassium 2.9 L* Chloride 97.2 L Carbon Dioxide 19 L BUN Creatinine 1.7 H Glucose 170 H POC Glucose 152 H Lactic Acid Calcium Phosphorus Magnesium Direct Bilirubin AST ALT Alkaline Phosphatase Lactate Dehydrogenase Troponin T C-Reactive Protein Total Protein Albumin Prealbumin Triglycerides 160 H Cholesterol LDL Cholesterol Direct HDL Cholesterol 31 L Urine pH Urine WBC (Auto) Urine Creatinine Urine Total Protein Vancomycin Trough Rheumatoid Factor Complement C4 Miscellaneous Test Crossmatch 09/04/16 09/04/16 09/04/16 11:34 17:46 23:29 WBC RBC Hgb Hct MCV MCH MCHC RDW Plt Count Lymph % (Auto) [place] % (Auto) Lymph # [place] # Baso # Seg Neutrophils % Seg Neuts % (Manual) Lymphocytes % (Manual) Monocytes % (Manual) Eosinophils % (Manual) Basophils % (Manual) Nucleated RBC % Seg Neutrophils # Seg Neutrophils # Man Lymphocytes # (Manual) Monocytes # (Manual) Eosinophils # (Manual) PT INR Fibrinogen dRVVT Confirm Interp Factor V Activity POC ABG pH POC ABG pCO2 POC ABG pO2 Sodium Potassium Chloride Carbon Dioxide BUN Creatinine Glucose POC Glucose 165 H 210 H 139 H Lactic Acid Calcium Phosphorus Magnesium Direct Bilirubin AST ALT Alkaline Phosphatase Lactate Dehydrogenase Troponin T C-Reactive Protein Total Protein Albumin Prealbumin Triglycerides Cholesterol LDL Cholesterol Direct HDL Cholesterol Urine pH Urine WBC (Auto) Urine Creatinine Urine Total Protein Vancomycin Trough Rheumatoid Factor Complement C4 Miscellaneous Test Crossmatch 09/05/16 09/05/16 09/05/16 04:05 04:05 05:38 WBC RBC Hgb Hct MCV 76 L D MCH 23 L MCHC RDW 17.8 H Plt Count Lymph % (Auto) [place] % (Auto) Lymph # [place] # Baso # Seg Neutrophils % Seg Neuts % (Manual) Lymphocytes % (Manual) Monocytes % (Manual) Eosinophils % (Manual) Basophils % (Manual) Nucleated RBC % Seg Neutrophils # Seg Neutrophils # Man Lymphocytes # (Manual) Monocytes # (Manual) Eosinophils # (Manual) PT INR Fibrinogen dRVVT Confirm Interp Factor V Activity POC ABG pH POC ABG pCO2 POC ABG pO2 Sodium 134 L Potassium Chloride Carbon Dioxide 18 L BUN Creatinine 1.8 H Glucose 192 H POC Glucose 175 H Lactic Acid Calcium Phosphorus Magnesium Direct Bilirubin AST ALT Alkaline Phosphatase Lactate Dehydrogenase Troponin T C-Reactive Protein Total Protein Albumin Prealbumin Triglycerides Cholesterol LDL Cholesterol Direct HDL Cholesterol Urine pH Urine WBC (Auto) Urine Creatinine Urine Total Protein Vancomycin Trough Rheumatoid Factor Complement C4 Miscellaneous Test Crossmatch 09/05/16 09/05/16 09/05/16 11:38 17:48 23:22 WBC RBC Hgb Hct MCV MCH MCHC RDW Plt Count Lymph % (Auto) [place] % (Auto) Lymph # [place] # Baso # Seg Neutrophils % Seg Neuts % (Manual) Lymphocytes % (Manual) Monocytes % (Manual) Eosinophils % (Manual) Basophils % (Manual) Nucleated RBC % Seg Neutrophils # Seg Neutrophils # Man Lymphocytes # (Manual) Monocytes # (Manual) Eosinophils # (Manual) PT INR Fibrinogen dRVVT Confirm Interp Factor V Activity POC ABG pH POC ABG pCO2 POC ABG pO2 Sodium Potassium Chloride Carbon Dioxide BUN Creatinine Glucose POC Glucose 164 H 186 H 195 H Lactic Acid Calcium Phosphorus Magnesium Direct Bilirubin AST ALT Alkaline Phosphatase Lactate Dehydrogenase Troponin T C-Reactive Protein Total Protein Albumin Prealbumin Triglycerides Cholesterol LDL Cholesterol Direct HDL Cholesterol Urine pH Urine WBC (Auto) Urine Creatinine Urine Total Protein Vancomycin Trough Rheumatoid Factor Complement C4 Miscellaneous Test Crossmatch 09/06/16 09/06/16 09/06/16 04:12 05:59 07:32 WBC RBC Hgb Hct MCV MCH MCHC RDW Plt Count Lymph % (Auto) [place] % (Auto) Lymph # [place] # Baso # Seg Neutrophils % Seg Neuts % (Manual) Lymphocytes % (Manual) Monocytes % (Manual) Eosinophils % (Manual) Basophils % (Manual) Nucleated RBC % Seg Neutrophils # Seg Neutrophils # Man Lymphocytes # (Manual) Monocytes # (Manual) Eosinophils # (Manual) PT INR Fibrinogen dRVVT Confirm Interp Factor V Activity POC ABG pH 7.514 H POC ABG pCO2 29.1 L POC ABG pO2 72 L Sodium 133 L Potassium 3.4 L Chloride 94.9 L Carbon Dioxide 19 L BUN 30 H Creatinine 2.1 H Glucose 139 H POC Glucose 146 H Lactic Acid Calcium Phosphorus Magnesium Direct Bilirubin AST ALT Alkaline Phosphatase Lactate Dehydrogenase Troponin T C-Reactive Protein Total Protein Albumin Prealbumin Triglycerides Cholesterol LDL Cholesterol Direct HDL Cholesterol Urine pH Urine WBC (Auto) Urine Creatinine Urine Total Protein Vancomycin Trough Rheumatoid Factor Complement C4 Miscellaneous Test Crossmatch 09/06/16 09/06/16 09/06/16 11:57 17:58 19:02 WBC RBC Hgb Hct MCV MCH MCHC RDW Plt Count Lymph % (Auto) [place] % (Auto) Lymph # [place] # Baso # Seg Neutrophils % Seg Neuts % (Manual) Lymphocytes % (Manual) Monocytes % (Manual) Eosinophils % (Manual) Basophils % (Manual) Nucleated RBC % Seg Neutrophils # Seg Neutrophils # Man Lymphocytes # (Manual) Monocytes # (Manual) Eosinophils # (Manual) PT INR Fibrinogen dRVVT Confirm Interp Factor V Activity POC ABG pH 7.465 H POC ABG pCO2 32.0 L POC ABG pO2 Sodium Potassium Chloride Carbon Dioxide BUN Creatinine Glucose POC Glucose 165 H 160 H Lactic Acid Calcium Phosphorus Magnesium Direct Bilirubin AST ALT Alkaline Phosphatase Lactate Dehydrogenase Troponin T C-Reactive Protein Total Protein Albumin Prealbumin Triglycerides Cholesterol LDL Cholesterol Direct HDL Cholesterol Urine pH Urine WBC (Auto) Urine Creatinine Urine Total Protein Vancomycin Trough Rheumatoid Factor Complement C4 Miscellaneous Test Crossmatch 09/06/16 09/07/16 09/07/16 23:45 02:47 02:47 WBC RBC Hgb Hct MCV MCH MCHC RDW Plt Count Lymph % (Auto) [place] % (Auto) Lymph # [place] # Baso # Seg Neutrophils % Seg Neuts % (Manual) Lymphocytes % (Manual) Monocytes % (Manual) Eosinophils % (Manual) Basophils % (Manual) Nucleated RBC % Seg Neutrophils # Seg Neutrophils # Man Lymphocytes # (Manual) Monocytes # (Manual) Eosinophils # (Manual) PT INR Fibrinogen dRVVT Confirm Interp Factor V Activity POC ABG pH POC ABG pCO2 POC ABG pO2 Sodium Potassium Chloride Carbon Dioxide BUN Creatinine Glucose POC Glucose 204 H Lactic Acid Calcium Phosphorus Magnesium Direct Bilirubin AST ALT Alkaline Phosphatase Lactate Dehydrogenase Troponin T C-Reactive Protein Total Protein Albumin Prealbumin Triglycerides Cholesterol LDL Cholesterol Direct HDL Cholesterol Urine pH Urine WBC (Auto) 68.0 H Urine Creatinine 106.1 H Urine Total Protein Vancomycin Trough Rheumatoid Factor Complement C4 Miscellaneous Test Crossmatch 09/07/16 09/07/16 09/07/16 04:50 06:19 06:39 WBC RBC Hgb Hct MCV MCH MCHC RDW Plt Count Lymph % (Auto) [place] % (Auto) Lymph # [place] # Baso # Seg Neutrophils % Seg Neuts % (Manual) Lymphocytes % (Manual) Monocytes % (Manual) Eosinophils % (Manual) Basophils % (Manual) Nucleated RBC % Seg Neutrophils # Seg Neutrophils # Man Lymphocytes # (Manual) Monocytes # (Manual) Eosinophils # (Manual) PT INR Fibrinogen dRVVT Confirm Interp Factor V Activity POC ABG pH 7.457 H POC ABG pCO2 32.1 L POC ABG pO2 76 L Sodium 132 L Potassium Chloride 94.7 L Carbon Dioxide BUN 53 H Creatinine 2.9 H Glucose 151 H POC Glucose 149 H Lactic Acid Calcium Phosphorus Magnesium Direct Bilirubin AST ALT Alkaline Phosphatase Lactate Dehydrogenase Troponin T C-Reactive Protein Total Protein Albumin Prealbumin Triglycerides Cholesterol LDL Cholesterol Direct HDL Cholesterol Urine pH Urine WBC (Auto) Urine Creatinine Urine Total Protein Vancomycin Trough Rheumatoid Factor Complement C4 Miscellaneous Test Crossmatch 09/07/16 09/07/16 09/07/16 09:20 11:43 11:43 WBC 19.4 H RBC Hgb 8.3 L Hct 26.4 L D MCV 72 L D MCH 22 L MCHC RDW 17.9 H Plt Count Lymph % (Auto) 8.5 L [place] % (Auto) Lymph # [place] # 1.0 H Baso # Seg Neutrophils % 85.8 H Seg Neuts % (Manual) Lymphocytes % (Manual) Monocytes % (Manual) Eosinophils % (Manual) Basophils % (Manual) Nucleated RBC % Seg Neutrophils # 16.6 H Seg Neutrophils # Man Lymphocytes # (Manual) Monocytes # (Manual) Eosinophils # (Manual) PT INR Fibrinogen dRVVT Confirm Interp Factor V Activity POC ABG pH POC ABG pCO2 POC ABG pO2 Sodium 134 L Potassium Chloride 97.2 L Carbon Dioxide 20 L BUN 58 H Creatinine 2.9 H Glucose 147 H POC Glucose Lactic Acid Calcium Phosphorus 2.40 L Magnesium 2.40 H Direct Bilirubin AST ALT Alkaline Phosphatase Lactate Dehydrogenase Troponin T C-Reactive Protein Total Protein 5.8 L Albumin 2.2 L Prealbumin Triglycerides Cholesterol LDL Cholesterol Direct HDL Cholesterol Urine pH Urine WBC (Auto) Urine Creatinine Urine Total Protein Vancomycin Trough Rheumatoid Factor Complement C4 58 H Miscellaneous Test Crossmatch 09/07/16 09/07/16 09/07/16 11:50 16:00 17:31 WBC RBC Hgb Hct MCV MCH MCHC RDW Plt Count Lymph % (Auto) [place] % (Auto) Lymph # [place] # Baso # Seg Neutrophils % Seg Neuts % (Manual) Lymphocytes % (Manual) Monocytes % (Manual) Eosinophils % (Manual) Basophils % (Manual) Nucleated RBC % Seg Neutrophils # Seg Neutrophils # Man Lymphocytes # (Manual) Monocytes # (Manual) Eosinophils # (Manual) PT INR Fibrinogen dRVVT Confirm Interp Factor V Activity POC ABG pH POC ABG pCO2 POC ABG pO2 158 H Sodium Potassium Chloride Carbon Dioxide BUN Creatinine Glucose POC Glucose 175 H Lactic Acid Calcium Phosphorus Magnesium Direct Bilirubin AST ALT Alkaline Phosphatase Lactate Dehydrogenase Troponin T C-Reactive Protein Total Protein Albumin Prealbumin Triglycerides Cholesterol LDL Cholesterol Direct HDL Cholesterol Urine pH Urine WBC (Auto) Urine Creatinine 66.3 H Urine Total Protein Vancomycin Trough Rheumatoid Factor Complement C4 Miscellaneous Test Crossmatch 09/07/16 09/08/16 09/08/16 23:50 05:46 06:18 WBC 17.8 H RBC 3.58 L Hgb 8.1 L Hct 25.5 L MCV 71 L MCH 23 L MCHC RDW 18.4 H Plt Count Lymph % (Auto) [place] % (Auto) Lymph # [place] # Baso # Seg Neutrophils % Seg Neuts % (Manual) 92.0 H Lymphocytes % (Manual) 6.0 L Monocytes % (Manual) Eosinophils % (Manual) Basophils % (Manual) Nucleated RBC % Seg Neutrophils # Seg Neutrophils # Man 16.4 H Lymphocytes # (Manual) 1.1 L Monocytes # (Manual) Eosinophils # (Manual) PT INR Fibrinogen dRVVT Confirm Interp Factor V Activity POC ABG pH POC ABG pCO2 34.3 L POC ABG pO2 71 L Sodium Potassium Chloride Carbon Dioxide BUN Creatinine Glucose POC Glucose 216 H Lactic Acid Calcium Phosphorus Magnesium Direct Bilirubin AST ALT Alkaline Phosphatase Lactate Dehydrogenase Troponin T C-Reactive Protein Total Protein Albumin Prealbumin Triglycerides Cholesterol LDL Cholesterol Direct HDL Cholesterol Urine pH Urine WBC (Auto) Urine Creatinine Urine Total Protein Vancomycin Trough Rheumatoid Factor Complement C4 Miscellaneous Test Crossmatch 09/08/16 09/08/16 09/08/16 06:18 06:51 10:55 WBC RBC Hgb Hct MCV MCH MCHC RDW Plt Count Lymph % (Auto) [place] % (Auto) Lymph # [place] # Baso # Seg Neutrophils % Seg Neuts % (Manual) Lymphocytes % (Manual) Monocytes % (Manual) Eosinophils % (Manual) Basophils % (Manual) Nucleated RBC % Seg Neutrophils # Seg Neutrophils # Man Lymphocytes # (Manual) Monocytes # (Manual) Eosinophils # (Manual) PT INR Fibrinogen dRVVT Confirm Interp Factor V Activity POC ABG pH POC ABG pCO2 POC ABG pO2 Sodium 133 L Potassium Chloride 96.9 L Carbon Dioxide 20 L BUN 63 H Creatinine 2.7 H Glucose 195 H POC Glucose 204 H 169 H Lactic Acid Calcium Phosphorus Magnesium Direct Bilirubin AST ALT Alkaline Phosphatase Lactate Dehydrogenase Troponin T C-Reactive Protein Total Protein Albumin Prealbumin Triglycerides Cholesterol LDL Cholesterol Direct HDL Cholesterol Urine pH Urine WBC (Auto) Urine Creatinine Urine Total Protein Vancomycin Trough Rheumatoid Factor Complement C4 Miscellaneous Test Crossmatch 09/08/16 09/08/16 09/08/16 11:48 11:48 11:48 WBC RBC Hgb Hct MCV MCH MCHC RDW Plt Count Lymph % (Auto) [place] % (Auto) Lymph # [place] # Baso # Seg Neutrophils % Seg Neuts % (Manual) Lymphocytes % (Manual) Monocytes % (Manual) Eosinophils % (Manual) Basophils % (Manual) Nucleated RBC % Seg Neutrophils # Seg Neutrophils # Man Lymphocytes # (Manual) Monocytes # (Manual) Eosinophils # (Manual) PT INR Fibrinogen 750 H dRVVT Confirm Interp Factor V Activity POC ABG pH POC ABG pCO2 POC ABG pO2 Sodium Potassium Chloride Carbon Dioxide BUN Creatinine Glucose POC Glucose Lactic Acid Calcium Phosphorus Magnesium Direct Bilirubin AST ALT Alkaline Phosphatase Lactate Dehydrogenase Troponin T C-Reactive Protein 15.70 H Total Protein Albumin Prealbumin Triglycerides Cholesterol LDL Cholesterol Direct HDL Cholesterol Urine pH Urine WBC (Auto) Urine Creatinine Urine Total Protein Vancomycin Trough Rheumatoid Factor 24 H Complement C4 Miscellaneous Test Crossmatch 09/08/16 09/08/16 09/09/16 15:35 18:25 00:24 WBC RBC Hgb Hct MCV MCH MCHC RDW Plt Count Lymph % (Auto) [place] % (Auto) Lymph # [place] # Baso # Seg Neutrophils % Seg Neuts % (Manual) Lymphocytes % (Manual) Monocytes % (Manual) Eosinophils % (Manual) Basophils % (Manual) Nucleated RBC % Seg Neutrophils # Seg Neutrophils # Man Lymphocytes # (Manual) Monocytes # (Manual) Eosinophils # (Manual) PT INR Fibrinogen dRVVT Confirm Interp Factor V Activity 182 H POC ABG pH POC ABG pCO2 POC ABG pO2 Sodium Potassium Chloride Carbon Dioxide BUN Creatinine Glucose POC Glucose 184 H 216 H Lactic Acid Calcium Phosphorus Magnesium Direct Bilirubin AST ALT Alkaline Phosphatase Lactate Dehydrogenase Troponin T C-Reactive Protein Total Protein Albumin Prealbumin Triglycerides Cholesterol LDL Cholesterol Direct HDL Cholesterol Urine pH Urine WBC (Auto) Urine Creatinine Urine Total Protein Vancomycin Trough Rheumatoid Factor Complement C4 Miscellaneous Test Crossmatch 09/09/16 09/09/16 09/09/16 03:00 03:00 04:04 WBC 27.9 H RBC Hgb 8.7 L Hct 28.1 L MCV 72 L MCH 22 L MCHC RDW 18.4 H Plt Count 485 H Lymph % (Auto) [place] % (Auto) Lymph # [place] # Baso # Seg Neutrophils % Seg Neuts % (Manual) 77.0 H Lymphocytes % (Manual) 9.0 L Monocytes % (Manual) Eosinophils % (Manual) Basophils % (Manual) Nucleated RBC % Seg Neutrophils # Seg Neutrophils # Man 21.5 H Lymphocytes # (Manual) Monocytes # (Manual) 2.0 H Eosinophils # (Manual) PT INR Fibrinogen dRVVT Confirm Interp Factor V Activity POC ABG pH POC ABG pCO2 POC ABG pO2 121 H Sodium 135 L Potassium Chloride 96.3 L Carbon Dioxide 21 L BUN 83 H Creatinine 3.0 H Glucose 135 H POC Glucose Lactic Acid Calcium Phosphorus Magnesium Direct Bilirubin AST ALT Alkaline Phosphatase Lactate Dehydrogenase Troponin T C-Reactive Protein Total Protein Albumin Prealbumin Triglycerides Cholesterol LDL Cholesterol Direct HDL Cholesterol Urine pH Urine WBC (Auto) Urine Creatinine Urine Total Protein Vancomycin Trough Rheumatoid Factor Complement C4 Miscellaneous Test Crossmatch 09/09/16 09/09/16 09/09/16 05:41 11:55 14:13 WBC RBC Hgb Hct MCV MCH MCHC RDW Plt Count Lymph % (Auto) [place] % (Auto) Lymph # [place] # Baso # Seg Neutrophils % Seg Neuts % (Manual) Lymphocytes % (Manual) Monocytes % (Manual) Eosinophils % (Manual) Basophils % (Manual) Nucleated RBC % Seg Neutrophils # Seg Neutrophils # Man Lymphocytes # (Manual) Monocytes # (Manual) Eosinophils # (Manual) PT INR Fibrinogen dRVVT Confirm Interp Factor V Activity POC ABG pH POC ABG pCO2 POC ABG pO2 Sodium Potassium Chloride Carbon Dioxide BUN Creatinine Glucose POC Glucose 155 H 186 H Lactic Acid Calcium Phosphorus Magnesium Direct Bilirubin AST ALT Alkaline Phosphatase Lactate Dehydrogenase Troponin T C-Reactive Protein Total Protein Albumin Prealbumin Triglycerides Cholesterol LDL Cholesterol Direct HDL Cholesterol Urine pH Urine WBC (Auto) 25.0 H Urine Creatinine Urine Total Protein Vancomycin Trough Rheumatoid Factor Complement C4 Miscellaneous Test Crossmatch 09/09/16 09/09/16 09/10/16 17:33 23:13 05:09 WBC RBC Hgb Hct MCV MCH MCHC RDW Plt Count Lymph % (Auto) [place] % (Auto) Lymph # [place] # Baso # Seg Neutrophils % Seg Neuts % (Manual) Lymphocytes % (Manual) Monocytes % (Manual) Eosinophils % (Manual) Basophils % (Manual) Nucleated RBC % Seg Neutrophils # Seg Neutrophils # Man Lymphocytes # (Manual) Monocytes # (Manual) Eosinophils # (Manual) PT INR Fibrinogen dRVVT Confirm Interp Factor V Activity POC ABG pH POC ABG pCO2 POC ABG pO2 74 L Sodium Potassium Chloride Carbon Dioxide BUN Creatinine Glucose POC Glucose 211 H 215 H Lactic Acid Calcium Phosphorus Magnesium Direct Bilirubin AST ALT Alkaline Phosphatase Lactate Dehydrogenase Troponin T C-Reactive Protein Total Protein Albumin Prealbumin Triglycerides Cholesterol LDL Cholesterol Direct HDL Cholesterol Urine pH Urine WBC (Auto) Urine Creatinine Urine Total Protein Vancomycin Trough Rheumatoid Factor Complement C4 Miscellaneous Test Crossmatch 09/10/16 09/10/16 09/10/16 05:17 05:17 11:31 WBC 15.8 H RBC 3.25 L Hgb 7.3 L Hct 22.9 L MCV 71 L MCH 23 L MCHC RDW 18.4 H Plt Count Lymph % (Auto) [place] % (Auto) Lymph # [place] # Baso # Seg Neutrophils % Seg Neuts % (Manual) 91.0 H Lymphocytes % (Manual) 4.0 L Monocytes % (Manual) Eosinophils % (Manual) Basophils % (Manual) Nucleated RBC % Seg Neutrophils # Seg Neutrophils # Man 14.4 H Lymphocytes # (Manual) 0.6 L Monocytes # (Manual) Eosinophils # (Manual) PT INR Fibrinogen dRVVT Confirm Interp Factor V Activity POC ABG pH POC ABG pCO2 POC ABG pO2 Sodium Potassium Chloride Carbon Dioxide 21 L BUN 93 H Creatinine 2.9 H Glucose 146 H POC Glucose 188 H Lactic Acid Calcium 8.1 L Phosphorus Magnesium Direct Bilirubin AST ALT Alkaline Phosphatase Lactate Dehydrogenase Troponin T C-Reactive Protein Total Protein Albumin Prealbumin Triglycerides Cholesterol LDL Cholesterol Direct HDL Cholesterol Urine pH Urine WBC (Auto) Urine Creatinine Urine Total Protein Vancomycin Trough Rheumatoid Factor Complement C4 Miscellaneous Test Crossmatch 09/10/16 09/10/16 09/10/16 13:17 17:20 23:32 WBC RBC Hgb Hct MCV MCH MCHC RDW Plt Count Lymph % (Auto) [place] % (Auto) Lymph # [place] # Baso # Seg Neutrophils % Seg Neuts % (Manual) Lymphocytes % (Manual) Monocytes % (Manual) Eosinophils % (Manual) Basophils % (Manual) Nucleated RBC % Seg Neutrophils # Seg Neutrophils # Man Lymphocytes # (Manual) Monocytes # (Manual) Eosinophils # (Manual) PT INR Fibrinogen dRVVT Confirm Interp Factor V Activity POC ABG pH POC ABG pCO2 POC ABG pO2 Sodium Potassium Chloride Carbon Dioxide BUN Creatinine Glucose POC Glucose 199 H 186 H Lactic Acid Calcium Phosphorus Magnesium Direct Bilirubin AST ALT Alkaline Phosphatase Lactate Dehydrogenase Troponin T C-Reactive Protein Total Protein Albumin Prealbumin Triglycerides Cholesterol LDL Cholesterol Direct HDL Cholesterol Urine pH Urine WBC (Auto) Urine Creatinine Urine Total Protein Vancomycin Trough Rheumatoid Factor Complement C4 Miscellaneous Test Crossmatch See Detail 09/11/16 09/11/16 09/11/16 05:10 05:10 05:17 WBC 28.4 H RBC Hgb 9.2 L Hct 29.3 L D MCV 73 L MCH 23 L MCHC RDW 18.9 H Plt Count 452 H Lymph % (Auto) [place] % (Auto) Lymph # [place] # Baso # Seg Neutrophils % Seg Neuts % (Manual) 89.5 H Lymphocytes % (Manual) 2.0 L Monocytes % (Manual) Eosinophils % (Manual) Basophils % (Manual) Nucleated RBC % Seg Neutrophils # Seg Neutrophils # Man 25.4 H Lymphocytes # (Manual) 0.6 L Monocytes # (Manual) 1.3 H Eosinophils # (Manual) PT INR Fibrinogen dRVVT Confirm Interp Factor V Activity POC ABG pH POC ABG pCO2 POC ABG pO2 Sodium 136 L Potassium Chloride Carbon Dioxide 18 L BUN 107 H Creatinine 2.6 H Glucose 187 H POC Glucose 230 H Lactic Acid Calcium 8.3 L Phosphorus Magnesium Direct Bilirubin AST ALT Alkaline Phosphatase Lactate Dehydrogenase Troponin T C-Reactive Protein Total Protein Albumin Prealbumin Triglycerides Cholesterol LDL Cholesterol Direct HDL Cholesterol Urine pH Urine WBC (Auto) Urine Creatinine Urine Total Protein Vancomycin Trough Rheumatoid Factor Complement C4 Miscellaneous Test Crossmatch 09/11/16 09/11/16 09/11/16 05:55 12:02 17:32 WBC RBC Hgb Hct MCV MCH MCHC RDW Plt Count Lymph % (Auto) [place] % (Auto) Lymph # [place] # Baso # Seg Neutrophils % Seg Neuts % (Manual) Lymphocytes % (Manual) Monocytes % (Manual) Eosinophils % (Manual) Basophils % (Manual) Nucleated RBC % Seg Neutrophils # Seg Neutrophils # Man Lymphocytes # (Manual) Monocytes # (Manual) Eosinophils # (Manual) PT INR Fibrinogen dRVVT Confirm Interp Factor V Activity POC ABG pH POC ABG pCO2 33.8 L POC ABG pO2 Sodium Potassium Chloride Carbon Dioxide BUN Creatinine Glucose POC Glucose 191 H 239 H Lactic Acid Calcium Phosphorus Magnesium Direct Bilirubin AST ALT Alkaline Phosphatase Lactate Dehydrogenase Troponin T C-Reactive Protein Total Protein Albumin Prealbumin Triglycerides Cholesterol LDL Cholesterol Direct HDL Cholesterol Urine pH Urine WBC (Auto) Urine Creatinine Urine Total Protein Vancomycin Trough Rheumatoid Factor Complement C4 Miscellaneous Test Crossmatch 09/11/16 09/12/16 09/12/16 23:52 05:09 05:32 WBC RBC Hgb Hct MCV MCH MCHC RDW Plt Count Lymph % (Auto) [place] % (Auto) Lymph # [place] # Baso # Seg Neutrophils % Seg Neuts % (Manual) Lymphocytes % (Manual) Monocytes % (Manual) Eosinophils % (Manual) Basophils % (Manual) Nucleated RBC % Seg Neutrophils # Seg Neutrophils # Man Lymphocytes # (Manual) Monocytes # (Manual) Eosinophils # (Manual) PT INR Fibrinogen dRVVT Confirm Interp Factor V Activity POC ABG pH POC ABG pCO2 34.6 L POC ABG pO2 Sodium Potassium Chloride Carbon Dioxide BUN Creatinine Glucose POC Glucose 265 H 184 H Lactic Acid Calcium Phosphorus Magnesium Direct Bilirubin AST ALT Alkaline Phosphatase Lactate Dehydrogenase Troponin T C-Reactive Protein Total Protein Albumin Prealbumin Triglycerides Cholesterol LDL Cholesterol Direct HDL Cholesterol Urine pH Urine WBC (Auto) Urine Creatinine Urine Total Protein Vancomycin Trough Rheumatoid Factor Complement C4 Miscellaneous Test Crossmatch 09/12/16 09/12/16 09/12/16 06:45 06:45 07:22 WBC 31.7 H RBC 3.54 L Hgb 8.3 L Hct 25.9 L MCV 73 L MCH 23 L MCHC RDW 18.9 H Plt Count Lymph % (Auto) [place] % (Auto) Lymph # [place] # Baso # Seg Neutrophils % Seg Neuts % (Manual) 88.5 H Lymphocytes % (Manual) 4.5 L Monocytes % (Manual) Eosinophils % (Manual) Basophils % (Manual) Nucleated RBC % Seg Neutrophils # Seg Neutrophils # Man 28.1 H Lymphocytes # (Manual) Monocytes # (Manual) 1.0 H Eosinophils # (Manual) PT INR Fibrinogen dRVVT Confirm Interp Factor V Activity POC ABG pH POC ABG pCO2 POC ABG pO2 Sodium Potassium Chloride Carbon Dioxide 20 L BUN 115 H Creatinine 2.7 H Glucose 165 H POC Glucose Lactic Acid Calcium 8.0 L Phosphorus Magnesium Direct Bilirubin AST ALT Alkaline Phosphatase Lactate Dehydrogenase Troponin T C-Reactive Protein Total Protein Albumin Prealbumin Triglycerides 217 H Cholesterol LDL Cholesterol Direct HDL Cholesterol Urine pH Urine WBC (Auto) Urine Creatinine Urine Total Protein Vancomycin Trough Rheumatoid Factor Complement C4 Miscellaneous Test Crossmatch 09/12/16 09/12/16 09/12/16 07:22 09:59 12:21 WBC RBC Hgb Hct MCV MCH MCHC RDW Plt Count Lymph % (Auto) [place] % (Auto) Lymph # [place] # Baso # Seg Neutrophils % Seg Neuts % (Manual) Lymphocytes % (Manual) Monocytes % (Manual) Eosinophils % (Manual) Basophils % (Manual) Nucleated RBC % Seg Neutrophils # Seg Neutrophils # Man Lymphocytes # (Manual) Monocytes # (Manual) Eosinophils # (Manual) PT INR Fibrinogen dRVVT Confirm Interp Positive H Factor V Activity POC ABG pH POC ABG pCO2 POC ABG pO2 Sodium Potassium Chloride Carbon Dioxide BUN Creatinine Glucose POC Glucose 224 H Lactic Acid Calcium Phosphorus Magnesium Direct Bilirubin AST ALT Alkaline Phosphatase Lactate Dehydrogenase Troponin T C-Reactive Protein 1.70 H Total Protein Albumin Prealbumin Triglycerides Cholesterol LDL Cholesterol Direct HDL Cholesterol Urine pH Urine WBC (Auto) Urine Creatinine Urine Total Protein Vancomycin Trough Rheumatoid Factor Complement C4 Miscellaneous Test Crossmatch 09/12/16 09/12/16 09/13/16 16:51 23:28 04:00 WBC 45.0 H* RBC Hgb 9.4 L Hct MCV 75 L MCH 23 L MCHC RDW 19.0 H Plt Count 470 H Lymph % (Auto) [place] % (Auto) Lymph # [place] # Baso # Seg Neutrophils % Seg Neuts % (Manual) 89.0 H Lymphocytes % (Manual) 5.0 L Monocytes % (Manual) Eosinophils % (Manual) Basophils % (Manual) Nucleated RBC % Seg Neutrophils # Seg Neutrophils # Man 40.1 H Lymphocytes # (Manual) Monocytes # (Manual) Eosinophils # (Manual) PT INR Fibrinogen dRVVT Confirm Interp Factor V Activity POC ABG pH POC ABG pCO2 POC ABG pO2 Sodium Potassium Chloride Carbon Dioxide BUN Creatinine Glucose POC Glucose 169 H 150 H Lactic Acid Calcium Phosphorus Magnesium Direct Bilirubin AST ALT Alkaline Phosphatase Lactate Dehydrogenase Troponin T C-Reactive Protein Total Protein Albumin Prealbumin Triglycerides Cholesterol LDL Cholesterol Direct HDL Cholesterol Urine pH Urine WBC (Auto) Urine Creatinine Urine Total Protein Vancomycin Trough Rheumatoid Factor Complement C4 Miscellaneous Test Crossmatch 09/13/16 09/13/16 09/13/16 04:00 11:26 17:31 WBC RBC Hgb Hct MCV MCH MCHC RDW Plt Count Lymph % (Auto) [place] % (Auto) Lymph # [place] # Baso # Seg Neutrophils % Seg Neuts % (Manual) Lymphocytes % (Manual) Monocytes % (Manual) Eosinophils % (Manual) Basophils % (Manual) Nucleated RBC % Seg Neutrophils # Seg Neutrophils # Man Lymphocytes # (Manual) Monocytes # (Manual) Eosinophils # (Manual) PT INR Fibrinogen dRVVT Confirm Interp Factor V Activity POC ABG pH POC ABG pCO2 POC ABG pO2 Sodium Potassium Chloride Carbon Dioxide 20 L BUN 116 H Creatinine 3.0 H Glucose 172 H POC Glucose 140 H 183 H Lactic Acid Calcium Phosphorus Magnesium Direct Bilirubin AST ALT Alkaline Phosphatase Lactate Dehydrogenase Troponin T C-Reactive Protein Total Protein 6.2 L Albumin 2.9 L Prealbumin Triglycerides Cholesterol LDL Cholesterol Direct HDL Cholesterol Urine pH Urine WBC (Auto) Urine Creatinine Urine Total Protein Vancomycin Trough Rheumatoid Factor Complement C4 Miscellaneous Test Crossmatch 09/13/16 09/14/16 09/14/16 23:23 04:06 04:07 WBC 29.4 H RBC Hgb 8.9 L Hct 27.3 L MCV 75 L MCH 24 L MCHC RDW 19.1 H Plt Count Lymph % (Auto) [place] % (Auto) Lymph # [place] # Baso # Seg Neutrophils % Seg Neuts % (Manual) 84.0 H Lymphocytes % (Manual) 6.0 L Monocytes % (Manual) 9.0 H Eosinophils % (Manual) Basophils % (Manual) Nucleated RBC % Seg Neutrophils # Seg Neutrophils # Man 24.7 H Lymphocytes # (Manual) Monocytes # (Manual) 2.6 H Eosinophils # (Manual) PT INR Fibrinogen dRVVT Confirm Interp Factor V Activity POC ABG pH 7.342 L POC ABG pCO2 POC ABG pO2 116 H Sodium Potassium Chloride Carbon Dioxide BUN Creatinine Glucose POC Glucose 154 H Lactic Acid Calcium Phosphorus Magnesium Direct Bilirubin AST ALT Alkaline Phosphatase Lactate Dehydrogenase Troponin T C-Reactive Protein Total Protein Albumin Prealbumin Triglycerides Cholesterol LDL Cholesterol Direct HDL Cholesterol Urine pH Urine WBC (Auto) Urine Creatinine Urine Total Protein Vancomycin Trough Rheumatoid Factor Complement C4 Miscellaneous Test Crossmatch 09/14/16 09/14/16 09/14/16 04:07 05:29 12:19 WBC RBC Hgb Hct MCV MCH MCHC RDW Plt Count Lymph % (Auto) [place] % (Auto) Lymph # [place] # Baso # Seg Neutrophils % Seg Neuts % (Manual) Lymphocytes % (Manual) Monocytes % (Manual) Eosinophils % (Manual) Basophils % (Manual) Nucleated RBC % Seg Neutrophils # Seg Neutrophils # Man Lymphocytes # (Manual) Monocytes # (Manual) Eosinophils # (Manual) PT INR Fibrinogen dRVVT Confirm Interp Factor V Activity POC ABG pH POC ABG pCO2 POC ABG pO2 Sodium 136 L Potassium Chloride Carbon Dioxide 18 L BUN 121 H Creatinine 2.8 H Glucose 214 H POC Glucose 239 H 181 H Lactic Acid Calcium Phosphorus Magnesium Direct Bilirubin AST ALT Alkaline Phosphatase Lactate Dehydrogenase Troponin T C-Reactive Protein Total Protein Albumin Prealbumin Triglycerides Cholesterol LDL Cholesterol Direct HDL Cholesterol Urine pH Urine WBC (Auto) Urine Creatinine Urine Total Protein Vancomycin Trough Rheumatoid Factor Complement C4 Miscellaneous Test Crossmatch 09/14/16 09/14/16 09/15/16 18:12 23:37 05:00 WBC 26.1 H RBC 3.05 L Hgb 7.2 L Hct 22.9 L MCV 75 L MCH 24 L MCHC RDW 19.0 H Plt Count Lymph % (Auto) [place] % (Auto) Lymph # [place] # Baso # Seg Neutrophils % Seg Neuts % (Manual) Lymphocytes % (Manual) Monocytes % (Manual) Eosinophils % (Manual) Basophils % (Manual) Nucleated RBC % Seg Neutrophils # Seg Neutrophils # Man Lymphocytes # (Manual) Monocytes # (Manual) Eosinophils # (Manual) PT INR Fibrinogen dRVVT Confirm Interp Factor V Activity POC ABG pH POC ABG pCO2 POC ABG pO2 Sodium Potassium Chloride Carbon Dioxide BUN Creatinine Glucose POC Glucose 266 H 154 H Lactic Acid Calcium Phosphorus Magnesium Direct Bilirubin AST ALT Alkaline Phosphatase Lactate Dehydrogenase Troponin T C-Reactive Protein Total Protein Albumin Prealbumin Triglycerides Cholesterol LDL Cholesterol Direct HDL Cholesterol Urine pH Urine WBC (Auto) Urine Creatinine Urine Total Protein Vancomycin Trough Rheumatoid Factor Complement C4 Miscellaneous Test Crossmatch 09/15/16 09/15/16 09/15/16 05:00 05:17 12:45 WBC RBC Hgb Hct MCV MCH MCHC RDW Plt Count Lymph % (Auto) [place] % (Auto) Lymph # [place] # Baso # Seg Neutrophils % Seg Neuts % (Manual) Lymphocytes % (Manual) Monocytes % (Manual) Eosinophils % (Manual) Basophils % (Manual) Nucleated RBC % Seg Neutrophils # Seg Neutrophils # Man Lymphocytes # (Manual) Monocytes # (Manual) Eosinophils # (Manual) PT INR Fibrinogen dRVVT Confirm Interp Factor V Activity POC ABG pH POC ABG pCO2 POC ABG pO2 Sodium Potassium 5.2 H Chloride Carbon Dioxide 18 L BUN 139 H Creatinine 3.7 H Glucose 227 H POC Glucose 226 H 244 H Lactic Acid Calcium 8.3 L Phosphorus Magnesium Direct Bilirubin AST ALT Alkaline Phosphatase Lactate Dehydrogenase Troponin T C-Reactive Protein Total Protein Albumin Prealbumin Triglycerides Cholesterol LDL Cholesterol Direct HDL Cholesterol Urine pH Urine WBC (Auto) Urine Creatinine Urine Total Protein Vancomycin Trough Rheumatoid Factor Complement C4 Miscellaneous Test Crossmatch 09/15/16 09/15/16 09/15/16 14:32 17:33 23:35 WBC RBC Hgb Hct MCV MCH MCHC RDW Plt Count Lymph % (Auto) [place] % (Auto) Lymph # [place] # Baso # Seg Neutrophils % Seg Neuts % (Manual) Lymphocytes % (Manual) Monocytes % (Manual) Eosinophils % (Manual) Basophils % (Manual) Nucleated RBC % Seg Neutrophils # Seg Neutrophils # Man Lymphocytes # (Manual) Monocytes # (Manual) Eosinophils # (Manual) PT INR Fibrinogen dRVVT Confirm Interp Factor V Activity POC ABG pH POC ABG pCO2 27.7 L POC ABG pO2 120 H Sodium Potassium Chloride Carbon Dioxide BUN Creatinine Glucose POC Glucose 232 H 167 H Lactic Acid Calcium Phosphorus Magnesium Direct Bilirubin AST ALT Alkaline Phosphatase Lactate Dehydrogenase Troponin T C-Reactive Protein Total Protein Albumin Prealbumin Triglycerides Cholesterol LDL Cholesterol Direct HDL Cholesterol Urine pH Urine WBC (Auto) Urine Creatinine Urine Total Protein Vancomycin Trough Rheumatoid Factor Complement C4 Miscellaneous Test Crossmatch 09/16/16 09/16/16 09/16/16 03:58 10:27 10:27 WBC 19.0 H RBC 2.77 L Hgb 6.5 L Hct 20.9 L MCV 76 L MCH 23 L MCHC RDW 19.3 H Plt Count Lymph % (Auto) 11.0 L [place] % (Auto) Lymph # [place] # 1.1 H Baso # Seg Neutrophils % 82.5 H Seg Neuts % (Manual) Lymphocytes % (Manual) Monocytes % (Manual) Eosinophils % (Manual) Basophils % (Manual) Nucleated RBC % Seg Neutrophils # 15.7 H Seg Neutrophils # Man Lymphocytes # (Manual) Monocytes # (Manual) Eosinophils # (Manual) PT INR Fibrinogen dRVVT Confirm Interp Factor V Activity POC ABG pH POC ABG pCO2 POC ABG pO2 Sodium Potassium Chloride 109.3 H Carbon Dioxide 18 L BUN 139 H Creatinine 4.1 H Glucose 144 H POC Glucose 146 H Lactic Acid Calcium 8.1 L Phosphorus Magnesium Direct Bilirubin AST ALT Alkaline Phosphatase Lactate Dehydrogenase Troponin T C-Reactive Protein Total Protein Albumin Prealbumin Triglycerides Cholesterol LDL Cholesterol Direct HDL Cholesterol Urine pH Urine WBC (Auto) Urine Creatinine Urine Total Protein Vancomycin Trough Rheumatoid Factor Complement C4 Miscellaneous Test Crossmatch 09/16/16 09/16/16 09/16/16 12:04 12:10 13:55 WBC RBC Hgb Hct MCV MCH MCHC RDW Plt Count Lymph % (Auto) [place] % (Auto) Lymph # [place] # Baso # Seg Neutrophils % Seg Neuts % (Manual) Lymphocytes % (Manual) Monocytes % (Manual) Eosinophils % (Manual) Basophils % (Manual) Nucleated RBC % Seg Neutrophils # Seg Neutrophils # Man Lymphocytes # (Manual) Monocytes # (Manual) Eosinophils # (Manual) PT INR Fibrinogen dRVVT Confirm Interp Factor V Activity POC ABG pH POC ABG pCO2 32.9 L POC ABG pO2 Sodium Potassium Chloride Carbon Dioxide BUN Creatinine Glucose POC Glucose 185 H Lactic Acid Calcium Phosphorus Magnesium Direct Bilirubin AST ALT Alkaline Phosphatase Lactate Dehydrogenase Troponin T C-Reactive Protein Total Protein Albumin Prealbumin Triglycerides Cholesterol LDL Cholesterol Direct HDL Cholesterol Urine pH Urine WBC (Auto) Urine Creatinine Urine Total Protein Vancomycin Trough Rheumatoid Factor Complement C4 Miscellaneous Test Crossmatch See Detail 09/16/16 09/16/16 09/16/16 17:55 19:19 23:48 WBC RBC Hgb Hct MCV MCH MCHC RDW Plt Count Lymph % (Auto) [place] % (Auto) Lymph # [place] # Baso # Seg Neutrophils % Seg Neuts % (Manual) Lymphocytes % (Manual) Monocytes % (Manual) Eosinophils % (Manual) Basophils % (Manual) Nucleated RBC % Seg Neutrophils # Seg Neutrophils # Man Lymphocytes # (Manual) Monocytes # (Manual) Eosinophils # (Manual) PT INR Fibrinogen dRVVT Confirm Interp Factor V Activity POC ABG pH POC ABG pCO2 POC ABG pO2 Sodium Potassium Chloride Carbon Dioxide BUN Creatinine Glucose POC Glucose 222 H 107 H Lactic Acid Calcium Phosphorus Magnesium Direct Bilirubin AST ALT Alkaline Phosphatase Lactate Dehydrogenase Troponin T C-Reactive Protein Total Protein Albumin Prealbumin Triglycerides Cholesterol LDL Cholesterol Direct HDL Cholesterol Urine pH Urine WBC (Auto) Urine Creatinine 47.4 H Urine Total Protein 16 H Vancomycin Trough Rheumatoid Factor Complement C4 Miscellaneous Test Crossmatch 09/17/16 09/17/16 09/17/16 03:45 03:45 04:55 WBC 19.6 H RBC 3.41 L Hgb 8.5 L Hct 26.7 L MCV 78 L MCH 25 L MCHC RDW 19.9 H Plt Count Lymph % (Auto) 9.3 L [place] % (Auto) Lymph # [place] # 1.2 H Baso # Seg Neutrophils % 83.9 H Seg Neuts % (Manual) Lymphocytes % (Manual) Monocytes % (Manual) Eosinophils % (Manual) Basophils % (Manual) Nucleated RBC % Seg Neutrophils # 16.4 H Seg Neutrophils # Man Lymphocytes # (Manual) Monocytes # (Manual) Eosinophils # (Manual) PT INR Fibrinogen dRVVT Confirm Interp Factor V Activity POC ABG pH POC ABG pCO2 POC ABG pO2 Sodium 146 H Potassium 5.1 H Chloride 110.9 H Carbon Dioxide 16 L BUN 146 H Creatinine 4.0 H Glucose 108 H POC Glucose 133 H Lactic Acid Calcium Phosphorus Magnesium 3.00 H Direct Bilirubin AST ALT Alkaline Phosphatase Lactate Dehydrogenase Troponin T C-Reactive Protein Total Protein Albumin Prealbumin Triglycerides Cholesterol LDL Cholesterol Direct HDL Cholesterol Urine pH Urine WBC (Auto) Urine Creatinine Urine Total Protein Vancomycin Trough Rheumatoid Factor Complement C4 Miscellaneous Test Crossmatch 09/17/16 09/17/16 09/17/16 11:15 17:33 23:47 WBC RBC Hgb Hct MCV MCH MCHC RDW Plt Count Lymph % (Auto) [place] % (Auto) Lymph # [place] # Baso # Seg Neutrophils % Seg Neuts % (Manual) Lymphocytes % (Manual) Monocytes % (Manual) Eosinophils % (Manual) Basophils % (Manual) Nucleated RBC % Seg Neutrophils # Seg Neutrophils # Man Lymphocytes # (Manual) Monocytes # (Manual) Eosinophils # (Manual) PT INR Fibrinogen dRVVT Confirm Interp Factor V Activity POC ABG pH POC ABG pCO2 POC ABG pO2 Sodium Potassium Chloride Carbon Dioxide BUN Creatinine Glucose POC Glucose 176 H 246 H 148 H Lactic Acid Calcium Phosphorus Magnesium Direct Bilirubin AST ALT Alkaline Phosphatase Lactate Dehydrogenase Troponin T C-Reactive Protein Total Protein Albumin Prealbumin Triglycerides Cholesterol LDL Cholesterol Direct HDL Cholesterol Urine pH Urine WBC (Auto) Urine Creatinine Urine Total Protein Vancomycin Trough Rheumatoid Factor Complement C4 Miscellaneous Test Crossmatch 09/18/16 09/18/16 09/18/16 05:33 08:31 08:31 WBC 18.0 H RBC 3.17 L Hgb 9.0 L Hct 25.7 L MCV MCH MCHC 35 H RDW 20.4 H Plt Count Lymph % (Auto) [place] % (Auto) Lymph # [place] # Baso # Seg Neutrophils % Seg Neuts % (Manual) Lymphocytes % (Manual) Monocytes % (Manual) Eosinophils % (Manual) Basophils % (Manual) Nucleated RBC % Seg Neutrophils # Seg Neutrophils # Man Lymphocytes # (Manual) Monocytes # (Manual) Eosinophils # (Manual) PT INR Fibrinogen dRVVT Confirm Interp Factor V Activity POC ABG pH POC ABG pCO2 POC ABG pO2 Sodium Potassium Chloride Carbon Dioxide 15 L BUN 124 H Creatinine 3.8 H Glucose POC Glucose 120 H Lactic Acid Calcium 8.1 L Phosphorus Magnesium Direct Bilirubin AST ALT Alkaline Phosphatase Lactate Dehydrogenase Troponin T C-Reactive Protein Total Protein Albumin Prealbumin Triglycerides Cholesterol LDL Cholesterol Direct HDL Cholesterol Urine pH Urine WBC (Auto) Urine Creatinine Urine Total Protein Vancomycin Trough Rheumatoid Factor Complement C4 Miscellaneous Test Crossmatch 09/18/16 09/18/16 09/18/16 12:03 15:34 17:50 WBC RBC Hgb Hct MCV MCH MCHC RDW Plt Count Lymph % (Auto) [place] % (Auto) Lymph # [place] # Baso # Seg Neutrophils % Seg Neuts % (Manual) Lymphocytes % (Manual) Monocytes % (Manual) Eosinophils % (Manual) Basophils % (Manual) Nucleated RBC % Seg Neutrophils # Seg Neutrophils # Man Lymphocytes # (Manual) Monocytes # (Manual) Eosinophils # (Manual) PT INR Fibrinogen dRVVT Confirm Interp Factor V Activity POC ABG pH POC ABG pCO2 25.7 L POC ABG pO2 66 L Sodium Potassium Chloride Carbon Dioxide BUN Creatinine Glucose POC Glucose 156 H 220 H Lactic Acid Calcium Phosphorus Magnesium Direct Bilirubin AST ALT Alkaline Phosphatase Lactate Dehydrogenase Troponin T C-Reactive Protein Total Protein Albumin Prealbumin Triglycerides Cholesterol LDL Cholesterol Direct HDL Cholesterol Urine pH Urine WBC (Auto) Urine Creatinine Urine Total Protein Vancomycin Trough Rheumatoid Factor Complement C4 Miscellaneous Test Crossmatch 09/19/16 09/19/16 09/19/16 06:21 09:50 09:50 WBC 17.1 H RBC 3.49 L Hgb 9.0 L Hct 28.1 L MCV MCH 26 L MCHC RDW 20.8 H Plt Count Lymph % (Auto) 11.5 L [place] % (Auto) 7.5 H Lymph # [place] # 1.3 H Baso # Seg Neutrophils % 79.8 H Seg Neuts % (Manual) Lymphocytes % (Manual) Monocytes % (Manual) Eosinophils % (Manual) Basophils % (Manual) Nucleated RBC % Seg Neutrophils # 13.7 H Seg Neutrophils # Man Lymphocytes # (Manual) Monocytes # (Manual) Eosinophils # (Manual) PT INR Fibrinogen dRVVT Confirm Interp Factor V Activity POC ABG pH POC ABG pCO2 POC ABG pO2 Sodium Potassium Chloride 108.6 H Carbon Dioxide 15 L BUN 125 H Creatinine 4.1 H Glucose 124 H POC Glucose 119 H Lactic Acid Calcium Phosphorus Magnesium Direct Bilirubin AST ALT Alkaline Phosphatase Lactate Dehydrogenase Troponin T C-Reactive Protein Total Protein Albumin Prealbumin Triglycerides Cholesterol LDL Cholesterol Direct HDL Cholesterol Urine pH Urine WBC (Auto) Urine Creatinine Urine Total Protein Vancomycin Trough Rheumatoid Factor Complement C4 Miscellaneous Test Crossmatch 09/19/16 09/19/16 09/19/16 11:25 17:53 23:36 WBC RBC Hgb Hct MCV MCH MCHC RDW Plt Count Lymph % (Auto) [place] % (Auto) Lymph # [place] # Baso # Seg Neutrophils % Seg Neuts % (Manual) Lymphocytes % (Manual) Monocytes % (Manual) Eosinophils % (Manual) Basophils % (Manual) Nucleated RBC % Seg Neutrophils # Seg Neutrophils # Man Lymphocytes # (Manual) Monocytes # (Manual) Eosinophils # (Manual) PT INR Fibrinogen dRVVT Confirm Interp Factor V Activity POC ABG pH POC ABG pCO2 POC ABG pO2 Sodium Potassium Chloride Carbon Dioxide BUN Creatinine Glucose POC Glucose 160 H 245 H 121 H Lactic Acid Calcium Phosphorus Magnesium Direct Bilirubin AST ALT Alkaline Phosphatase Lactate Dehydrogenase Troponin T C-Reactive Protein Total Protein Albumin Prealbumin Triglycerides Cholesterol LDL Cholesterol Direct HDL Cholesterol Urine pH Urine WBC (Auto) Urine Creatinine Urine Total Protein Vancomycin Trough Rheumatoid Factor Complement C4 Miscellaneous Test Crossmatch 09/20/16 09/20/16 09/20/16 04:10 04:10 04:10 WBC 17.0 H RBC 3.21 L Hgb 8.2 L Hct 25.5 L MCV MCH 26 L MCHC RDW 20.9 H Plt Count Lymph % (Auto) [place] % (Auto) Lymph # [place] # Baso # Seg Neutrophils % Seg Neuts % (Manual) Lymphocytes % (Manual) Monocytes % (Manual) Eosinophils % (Manual) Basophils % (Manual) Nucleated RBC % Seg Neutrophils # Seg Neutrophils # Man Lymphocytes # (Manual) Monocytes # (Manual) Eosinophils # (Manual) PT INR Fibrinogen dRVVT Confirm Interp Factor V Activity POC ABG pH POC ABG pCO2 POC ABG pO2 Sodium Potassium Chloride 111.0 H Carbon Dioxide 16 L BUN 129 H Creatinine 3.7 H Glucose 115 H POC Glucose Lactic Acid Calcium 8.2 L Phosphorus Magnesium Direct Bilirubin AST ALT Alkaline Phosphatase Lactate Dehydrogenase Troponin T C-Reactive Protein Total Protein Albumin Prealbumin Triglycerides 243 H Cholesterol LDL Cholesterol Direct HDL Cholesterol Urine pH Urine WBC (Auto) Urine Creatinine Urine Total Protein Vancomycin Trough Rheumatoid Factor Complement C4 Miscellaneous Test Crossmatch 09/20/16 09/20/16 09/20/16 05:40 11:52 16:50 WBC RBC Hgb Hct MCV MCH MCHC RDW Plt Count Lymph % (Auto) [place] % (Auto) Lymph # [place] # Baso # Seg Neutrophils % Seg Neuts % (Manual) Lymphocytes % (Manual) Monocytes % (Manual) Eosinophils % (Manual) Basophils % (Manual) Nucleated RBC % Seg Neutrophils # Seg Neutrophils # Man Lymphocytes # (Manual) Monocytes # (Manual) Eosinophils # (Manual) PT INR Fibrinogen dRVVT Confirm Interp Factor V Activity POC ABG pH POC ABG pCO2 POC ABG pO2 Sodium Potassium Chloride Carbon Dioxide BUN Creatinine Glucose POC Glucose 131 H 183 H 236 H Lactic Acid Calcium Phosphorus Magnesium Direct Bilirubin AST ALT Alkaline Phosphatase Lactate Dehydrogenase Troponin T C-Reactive Protein Total Protein Albumin Prealbumin Triglycerides Cholesterol LDL Cholesterol Direct HDL Cholesterol Urine pH Urine WBC (Auto) Urine Creatinine Urine Total Protein Vancomycin Trough Rheumatoid Factor Complement C4 Miscellaneous Test Crossmatch 09/20/16 09/21/16 09/21/16 23:51 03:30 04:44 WBC RBC Hgb Hct MCV MCH MCHC RDW Plt Count Lymph % (Auto) [place] % (Auto) Lymph # [place] # Baso # Seg Neutrophils % Seg Neuts % (Manual) Lymphocytes % (Manual) Monocytes % (Manual) Eosinophils % (Manual) Basophils % (Manual) Nucleated RBC % Seg Neutrophils # Seg Neutrophils # Man Lymphocytes # (Manual) Monocytes # (Manual) Eosinophils # (Manual) PT INR Fibrinogen dRVVT Confirm Interp Factor V Activity POC ABG pH POC ABG pCO2 POC ABG pO2 Sodium Potassium Chloride Carbon Dioxide BUN Creatinine Glucose POC Glucose 114 H 141 H Lactic Acid Calcium Phosphorus Magnesium 2.70 H Direct Bilirubin AST ALT Alkaline Phosphatase Lactate Dehydrogenase Troponin T C-Reactive Protein Total Protein Albumin Prealbumin Triglycerides Cholesterol LDL Cholesterol Direct HDL Cholesterol Urine pH Urine WBC (Auto) Urine Creatinine Urine Total Protein Vancomycin Trough Rheumatoid Factor Complement C4 Miscellaneous Test Crossmatch 09/21/16 09/21/16 09/21/16 07:45 07:45 10:01 WBC 13.8 H RBC 2.94 L Hgb 7.5 L Hct 23.5 L MCV MCH 26 L MCHC RDW 21.2 H Plt Count Lymph % (Auto) 6.9 L [place] % (Auto) 9.4 H Lymph # 0.9 L [place] # 1.3 H Baso # Seg Neutrophils % 83.2 H Seg Neuts % (Manual) Lymphocytes % (Manual) Monocytes % (Manual) Eosinophils % (Manual) Basophils % (Manual) Nucleated RBC % Seg Neutrophils # 11.5 H Seg Neutrophils # Man Lymphocytes # (Manual) Monocytes # (Manual) Eosinophils # (Manual) PT INR Fibrinogen dRVVT Confirm Interp Factor V Activity POC ABG pH 7.308 L POC ABG pCO2 31.9 L POC ABG pO2 148 H Sodium 147 H Potassium Chloride 114.2 H Carbon Dioxide 15 L BUN 120 H Creatinine 3.9 H Glucose 156 H POC Glucose Lactic Acid Calcium 8.2 L Phosphorus Magnesium Direct Bilirubin AST ALT Alkaline Phosphatase Lactate Dehydrogenase Troponin T C-Reactive Protein Total Protein Albumin Prealbumin Triglycerides Cholesterol LDL Cholesterol Direct HDL Cholesterol Urine pH Urine WBC (Auto) Urine Creatinine Urine Total Protein Vancomycin Trough Rheumatoid Factor Complement C4 Miscellaneous Test Crossmatch 09/21/16 09/21/16 09/21/16 12:00 12:03 13:00 WBC RBC Hgb Hct MCV MCH MCHC RDW Plt Count Lymph % (Auto) [place] % (Auto) Lymph # [place] # Baso # Seg Neutrophils % Seg Neuts % (Manual) Lymphocytes % (Manual) Monocytes % (Manual) Eosinophils % (Manual) Basophils % (Manual) Nucleated RBC % Seg Neutrophils # Seg Neutrophils # Man Lymphocytes # (Manual) Monocytes # (Manual) Eosinophils # (Manual) PT INR Fibrinogen dRVVT Confirm Interp Factor V Activity POC ABG pH POC ABG pCO2 POC ABG pO2 Sodium Potassium Chloride Carbon Dioxide BUN Creatinine Glucose POC Glucose 163 H Lactic Acid Calcium Phosphorus Magnesium Direct Bilirubin AST ALT Alkaline Phosphatase Lactate Dehydrogenase Troponin T C-Reactive Protein Total Protein Albumin Prealbumin Triglycerides Cholesterol LDL Cholesterol Direct HDL Cholesterol Urine pH Urine WBC (Auto) Urine Creatinine 54.8 H Urine Total Protein Vancomycin Trough 2.3 L Rheumatoid Factor Complement C4 Miscellaneous Test Crossmatch 09/21/16 09/21/16 09/22/16 16:51 23:17 06:27 WBC RBC Hgb Hct MCV MCH MCHC RDW Plt Count Lymph % (Auto) [place] % (Auto) Lymph # [place] # Baso # Seg Neutrophils % Seg Neuts % (Manual) Lymphocytes % (Manual) Monocytes % (Manual) Eosinophils % (Manual) Basophils % (Manual) Nucleated RBC % Seg Neutrophils # Seg Neutrophils # Man Lymphocytes # (Manual) Monocytes # (Manual) Eosinophils # (Manual) PT INR Fibrinogen dRVVT Confirm Interp Factor V Activity POC ABG pH POC ABG pCO2 POC ABG pO2 Sodium Potassium Chloride Carbon Dioxide BUN Creatinine Glucose POC Glucose 206 H 114 H 115 H Lactic Acid Calcium Phosphorus Magnesium Direct Bilirubin AST ALT Alkaline Phosphatase Lactate Dehydrogenase Troponin T C-Reactive Protein Total Protein Albumin Prealbumin Triglycerides Cholesterol LDL Cholesterol Direct HDL Cholesterol Urine pH Urine WBC (Auto) Urine Creatinine Urine Total Protein Vancomycin Trough Rheumatoid Factor Complement C4 Miscellaneous Test Crossmatch 09/22/16 09/22/16 09/22/16 07:50 07:50 12:00 WBC 17.8 H RBC 3.04 L Hgb 8.0 L Hct 24.7 L MCV MCH 26 L MCHC RDW 21.6 H Plt Count Lymph % (Auto) [place] % (Auto) Lymph # [place] # Baso # Seg Neutrophils % Seg Neuts % (Manual) Lymphocytes % (Manual) Monocytes % (Manual) Eosinophils % (Manual) Basophils % (Manual) Nucleated RBC % Seg Neutrophils # Seg Neutrophils # Man Lymphocytes # (Manual) Monocytes # (Manual) Eosinophils # (Manual) PT INR Fibrinogen dRVVT Confirm Interp Factor V Activity POC ABG pH POC ABG pCO2 POC ABG pO2 Sodium 150 H Potassium Chloride 118.2 H Carbon Dioxide 14 L BUN 111 H Creatinine 3.7 H Glucose 157 H POC Glucose 183 H Lactic Acid Calcium Phosphorus Magnesium Direct Bilirubin AST ALT Alkaline Phosphatase Lactate Dehydrogenase Troponin T C-Reactive Protein Total Protein Albumin Prealbumin Triglycerides Cholesterol LDL Cholesterol Direct HDL Cholesterol Urine pH Urine WBC (Auto) Urine Creatinine Urine Total Protein Vancomycin Trough Rheumatoid Factor Complement C4 Miscellaneous Test Crossmatch 09/22/16 09/22/16 09/23/16 17:29 23:10 05:00 WBC 19.2 H RBC 3.13 L Hgb 8.0 L Hct 25.2 L MCV MCH 26 L MCHC RDW 22.1 H Plt Count Lymph % (Auto) [place] % (Auto) Lymph # [place] # Baso # Seg Neutrophils % Seg Neuts % (Manual) 92.0 H Lymphocytes % (Manual) 3.0 L Monocytes % (Manual) Eosinophils % (Manual) Basophils % (Manual) Nucleated RBC % Seg Neutrophils # Seg Neutrophils # Man 17.7 H Lymphocytes # (Manual) 0.6 L Monocytes # (Manual) Eosinophils # (Manual) PT INR Fibrinogen dRVVT Confirm Interp Factor V Activity POC ABG pH POC ABG pCO2 POC ABG pO2 Sodium Potassium Chloride Carbon Dioxide BUN Creatinine Glucose POC Glucose 197 H 169 H Lactic Acid Calcium Phosphorus Magnesium Direct Bilirubin AST ALT Alkaline Phosphatase Lactate Dehydrogenase Troponin T C-Reactive Protein Total Protein Albumin Prealbumin Triglycerides Cholesterol LDL Cholesterol Direct HDL Cholesterol Urine pH Urine WBC (Auto) Urine Creatinine Urine Total Protein Vancomycin Trough Rheumatoid Factor Complement C4 Miscellaneous Test Crossmatch 09/23/16 09/23/16 09/23/16 05:00 05:00 05:10 WBC RBC Hgb Hct MCV MCH MCHC RDW Plt Count Lymph % (Auto) [place] % (Auto) Lymph # [place] # Baso # Seg Neutrophils % Seg Neuts % (Manual) Lymphocytes % (Manual) Monocytes % (Manual) Eosinophils % (Manual) Basophils % (Manual) Nucleated RBC % Seg Neutrophils # Seg Neutrophils # Man Lymphocytes # (Manual) Monocytes # (Manual) Eosinophils # (Manual) PT INR Fibrinogen dRVVT Confirm Interp Factor V Activity POC ABG pH POC ABG pCO2 POC ABG pO2 Sodium 147 H Potassium 3.2 L Chloride 115.7 H Carbon Dioxide 13 L BUN 111 H Creatinine 3.8 H Glucose 194 H POC Glucose 188 H Lactic Acid Calcium 7.3 L D Phosphorus Magnesium Direct Bilirubin AST ALT Alkaline Phosphatase Lactate Dehydrogenase Troponin T C-Reactive Protein 3.20 H Total Protein Albumin Prealbumin Triglycerides Cholesterol LDL Cholesterol Direct HDL Cholesterol Urine pH Urine WBC (Auto) Urine Creatinine Urine Total Protein Vancomycin Trough Rheumatoid Factor Complement C4 Miscellaneous Test Crossmatch 09/23/16 09/23/16 09/23/16 11:37 12:29 18:01 WBC RBC Hgb Hct MCV MCH MCHC RDW Plt Count Lymph % (Auto) [place] % (Auto) Lymph # [place] # Baso # Seg Neutrophils % Seg Neuts % (Manual) Lymphocytes % (Manual) Monocytes % (Manual) Eosinophils % (Manual) Basophils % (Manual) Nucleated RBC % Seg Neutrophils # Seg Neutrophils # Man Lymphocytes # (Manual) Monocytes # (Manual) Eosinophils # (Manual) PT INR Fibrinogen dRVVT Confirm Interp Factor V Activity POC ABG pH POC ABG pCO2 18.9 L POC ABG pO2 143 H Sodium Potassium Chloride Carbon Dioxide BUN Creatinine Glucose POC Glucose 153 H 108 H Lactic Acid Calcium Phosphorus Magnesium Direct Bilirubin AST ALT Alkaline Phosphatase Lactate Dehydrogenase Troponin T C-Reactive Protein Total Protein Albumin Prealbumin Triglycerides Cholesterol LDL Cholesterol Direct HDL Cholesterol Urine pH Urine WBC (Auto) Urine Creatinine Urine Total Protein Vancomycin Trough Rheumatoid Factor Complement C4 Miscellaneous Test Crossmatch 09/23/16 09/23/16 09/24/16 21:19 23:43 05:16 WBC RBC Hgb Hct MCV MCH MCHC RDW Plt Count Lymph % (Auto) [place] % (Auto) Lymph # [place] # Baso # Seg Neutrophils % Seg Neuts % (Manual) Lymphocytes % (Manual) Monocytes % (Manual) Eosinophils % (Manual) Basophils % (Manual) Nucleated RBC % Seg Neutrophils # Seg Neutrophils # Man Lymphocytes # (Manual) Monocytes # (Manual) Eosinophils # (Manual) PT INR Fibrinogen dRVVT Confirm Interp Factor V Activity POC ABG pH POC ABG pCO2 17.3 L POC ABG pO2 112 H Sodium Potassium Chloride Carbon Dioxide BUN Creatinine Glucose POC Glucose 143 H 164 H Lactic Acid Calcium Phosphorus Magnesium Direct Bilirubin AST ALT Alkaline Phosphatase Lactate Dehydrogenase Troponin T C-Reactive Protein Total Protein Albumin Prealbumin Triglycerides Cholesterol LDL Cholesterol Direct HDL Cholesterol Urine pH Urine WBC (Auto) Urine Creatinine Urine Total Protein Vancomycin Trough Rheumatoid Factor Complement C4 Miscellaneous Test Crossmatch 09/24/16 09/24/16 09/24/16 05:21 11:58 17:06 WBC RBC Hgb Hct MCV MCH MCHC RDW Plt Count Lymph % (Auto) [place] % (Auto) Lymph # [place] # Baso # Seg Neutrophils % Seg Neuts % (Manual) Lymphocytes % (Manual) Monocytes % (Manual) Eosinophils % (Manual) Basophils % (Manual) Nucleated RBC % Seg Neutrophils # Seg Neutrophils # Man Lymphocytes # (Manual) Monocytes # (Manual) Eosinophils # (Manual) PT INR Fibrinogen dRVVT Confirm Interp Factor V Activity POC ABG pH POC ABG pCO2 POC ABG pO2 Sodium Potassium Chloride Carbon Dioxide 10 L BUN 103 H Creatinine 4.3 H Glucose 163 H POC Glucose 173 H 167 H Lactic Acid Calcium 6.5 L Phosphorus Magnesium Direct Bilirubin AST ALT Alkaline Phosphatase Lactate Dehydrogenase Troponin T C-Reactive Protein Total Protein Albumin Prealbumin Triglycerides Cholesterol LDL Cholesterol Direct HDL Cholesterol Urine pH Urine WBC (Auto) Urine Creatinine Urine Total Protein Vancomycin Trough Rheumatoid Factor Complement C4 Miscellaneous Test Crossmatch 09/24/16 09/24/16 09/24/16 20:15 21:02 23:48 WBC RBC Hgb Hct MCV MCH MCHC RDW Plt Count Lymph % (Auto) [place] % (Auto) Lymph # [place] # Baso # Seg Neutrophils % Seg Neuts % (Manual) Lymphocytes % (Manual) Monocytes % (Manual) Eosinophils % (Manual) Basophils % (Manual) Nucleated RBC % Seg Neutrophils # Seg Neutrophils # Man Lymphocytes # (Manual) Monocytes # (Manual) Eosinophils # (Manual) PT INR Fibrinogen dRVVT Confirm Interp Factor V Activity POC ABG pH 7.288 L POC ABG pCO2 30.2 L 21.5 L POC ABG pO2 32 L 39 L Sodium Potassium Chloride Carbon Dioxide BUN Creatinine Glucose POC Glucose 109 H Lactic Acid Calcium Phosphorus Magnesium Direct Bilirubin AST ALT Alkaline Phosphatase Lactate Dehydrogenase Troponin T C-Reactive Protein Total Protein Albumin Prealbumin Triglycerides Cholesterol LDL Cholesterol Direct HDL Cholesterol Urine pH Urine WBC (Auto) Urine Creatinine Urine Total Protein Vancomycin Trough Rheumatoid Factor Complement C4 Miscellaneous Test Crossmatch 09/25/16 09/25/16 09/25/16 04:20 04:20 04:20 WBC RBC 2.58 L Hgb 7.0 L Hct 21.0 L MCV MCH 27 L MCHC RDW 23.8 H Plt Count Lymph % (Auto) [place] % (Auto) Lymph # [place] # Baso # Seg Neutrophils % Seg Neuts % (Manual) Lymphocytes % (Manual) 12.0 L Monocytes % (Manual) Eosinophils % (Manual) 7.0 H Basophils % (Manual) 2.0 H Nucleated RBC % Seg Neutrophils # Seg Neutrophils # Man Lymphocytes # (Manual) 0.9 L Monocytes # (Manual) Eosinophils # (Manual) 0.5 H PT INR Fibrinogen dRVVT Confirm Interp Factor V Activity POC ABG pH POC ABG pCO2 POC ABG pO2 Sodium Potassium Chloride Carbon Dioxide 15 L BUN 72 H Creatinine 3.8 H Glucose POC Glucose Lactic Acid Calcium 6.0 L Phosphorus 4.60 H Magnesium 1.60 L Direct Bilirubin AST ALT Alkaline Phosphatase Lactate Dehydrogenase Troponin T C-Reactive Protein Total Protein Albumin Prealbumin Triglycerides Cholesterol LDL Cholesterol Direct HDL Cholesterol Urine pH Urine WBC (Auto) Urine Creatinine Urine Total Protein Vancomycin Trough Rheumatoid Factor Complement C4 Miscellaneous Test Crossmatch 09/25/16 09/25/16 09/25/16 04:57 08:02 10:30 WBC RBC Hgb Hct MCV MCH MCHC RDW Plt Count Lymph % (Auto) [place] % (Auto) Lymph # [place] # Baso # Seg Neutrophils % Seg Neuts % (Manual) Lymphocytes % (Manual) Monocytes % (Manual) Eosinophils % (Manual) Basophils % (Manual) Nucleated RBC % Seg Neutrophils # Seg Neutrophils # Man Lymphocytes # (Manual) Monocytes # (Manual) Eosinophils # (Manual) PT INR Fibrinogen dRVVT Confirm Interp Factor V Activity POC ABG pH POC ABG pCO2 24.7 L POC ABG pO2 152 H Sodium Potassium Chloride Carbon Dioxide BUN Creatinine Glucose POC Glucose 113 H Lactic Acid Calcium Phosphorus Magnesium Direct Bilirubin AST ALT Alkaline Phosphatase Lactate Dehydrogenase Troponin T C-Reactive Protein Total Protein Albumin Prealbumin Triglycerides Cholesterol LDL Cholesterol Direct HDL Cholesterol Urine pH Urine WBC (Auto) Urine Creatinine Urine Total Protein Vancomycin Trough Rheumatoid Factor Complement C4 Miscellaneous Test Crossmatch See Detail 09/25/16 09/25/16 09/25/16 12:05 17:44 23:47 WBC RBC Hgb Hct MCV MCH MCHC RDW Plt Count Lymph % (Auto) [place] % (Auto) Lymph # [place] # Baso # Seg Neutrophils % Seg Neuts % (Manual) Lymphocytes % (Manual) Monocytes % (Manual) Eosinophils % (Manual) Basophils % (Manual) Nucleated RBC % Seg Neutrophils # Seg Neutrophils # Man Lymphocytes # (Manual) Monocytes # (Manual) Eosinophils # (Manual) PT INR Fibrinogen dRVVT Confirm Interp Factor V Activity POC ABG pH POC ABG pCO2 POC ABG pO2 Sodium Potassium Chloride Carbon Dioxide BUN Creatinine Glucose POC Glucose 117 H 119 H 150 H Lactic Acid Calcium Phosphorus Magnesium Direct Bilirubin AST ALT Alkaline Phosphatase Lactate Dehydrogenase Troponin T C-Reactive Protein Total Protein Albumin Prealbumin Triglycerides Cholesterol LDL Cholesterol Direct HDL Cholesterol Urine pH Urine WBC (Auto) Urine Creatinine Urine Total Protein Vancomycin Trough Rheumatoid Factor Complement C4 Miscellaneous Test Crossmatch 09/26/16 09/26/16 09/26/16 04:25 04:25 04:25 WBC RBC 2.65 L Hgb 7.4 L Hct 21.6 L MCV MCH MCHC RDW 22.5 H Plt Count Lymph % (Auto) [place] % (Auto) Lymph # [place] # Baso # Seg Neutrophils % Seg Neuts % (Manual) Lymphocytes % (Manual) 6.0 L Monocytes % (Manual) Eosinophils % (Manual) 11.0 H Basophils % (Manual) Nucleated RBC % Seg Neutrophils # Seg Neutrophils # Man Lymphocytes # (Manual) 0.4 L Monocytes # (Manual) Eosinophils # (Manual) 0.6 H PT INR Fibrinogen dRVVT Confirm Interp Factor V Activity POC ABG pH POC ABG pCO2 POC ABG pO2 Sodium Potassium Chloride 97.0 L Carbon Dioxide 19 L BUN 43 H Creatinine 2.6 H Glucose 130 H POC Glucose Lactic Acid 4.40 H* Calcium 6.7 L Phosphorus Magnesium Direct Bilirubin AST ALT Alkaline Phosphatase Lactate Dehydrogenase Troponin T C-Reactive Protein Total Protein Albumin Prealbumin Triglycerides Cholesterol LDL Cholesterol Direct HDL Cholesterol Urine pH Urine WBC (Auto) Urine Creatinine Urine Total Protein Vancomycin Trough Rheumatoid Factor Complement C4 Miscellaneous Test Crossmatch 09/26/16 09/26/16 09/26/16 05:20 11:44 12:12 WBC RBC Hgb Hct MCV MCH MCHC RDW Plt Count Lymph % (Auto) [place] % (Auto) Lymph # [place] # Baso # Seg Neutrophils % Seg Neuts % (Manual) Lymphocytes % (Manual) Monocytes % (Manual) Eosinophils % (Manual) Basophils % (Manual) Nucleated RBC % Seg Neutrophils # Seg Neutrophils # Man Lymphocytes # (Manual) Monocytes # (Manual) Eosinophils # (Manual) PT INR Fibrinogen dRVVT Confirm Interp Factor V Activity POC ABG pH POC ABG pCO2 27.0 L POC ABG pO2 69 L Sodium Potassium Chloride Carbon Dioxide BUN Creatinine Glucose POC Glucose 121 H 128 H Lactic Acid Calcium Phosphorus Magnesium Direct Bilirubin AST ALT Alkaline Phosphatase Lactate Dehydrogenase Troponin T C-Reactive Protein Total Protein Albumin Prealbumin Triglycerides Cholesterol LDL Cholesterol Direct HDL Cholesterol Urine pH Urine WBC (Auto) Urine Creatinine Urine Total Protein Vancomycin Trough Rheumatoid Factor Complement C4 Miscellaneous Test Crossmatch 09/26/16 09/26/16 09/27/16 18:31 23:40 08:20 WBC RBC Hgb Hct MCV MCH MCHC RDW Plt Count Lymph % (Auto) [place] % (Auto) Lymph # [place] # Baso # Seg Neutrophils % Seg Neuts % (Manual) Lymphocytes % (Manual) Monocytes % (Manual) Eosinophils % (Manual) Basophils % (Manual) Nucleated RBC % Seg Neutrophils # Seg Neutrophils # Man Lymphocytes # (Manual) Monocytes # (Manual) Eosinophils # (Manual) PT INR Fibrinogen dRVVT Confirm Interp Factor V Activity POC ABG pH POC ABG pCO2 POC ABG pO2 Sodium Potassium Chloride Carbon Dioxide BUN Creatinine Glucose POC Glucose 120 H 133 H Lactic Acid 4.10 H* Calcium Phosphorus Magnesium Direct Bilirubin AST ALT Alkaline Phosphatase Lactate Dehydrogenase Troponin T C-Reactive Protein Total Protein Albumin Prealbumin Triglycerides Cholesterol LDL Cholesterol Direct HDL Cholesterol Urine pH Urine WBC (Auto) Urine Creatinine Urine Total Protein Vancomycin Trough Rheumatoid Factor Complement C4 Miscellaneous Test Crossmatch 09/27/16 09/27/16 09/27/16 11:23 15:00 18:15 WBC RBC Hgb Hct MCV MCH MCHC RDW Plt Count Lymph % (Auto) [place] % (Auto) Lymph # [place] # Baso # Seg Neutrophils % Seg Neuts % (Manual) Lymphocytes % (Manual) Monocytes % (Manual) Eosinophils % (Manual) Basophils % (Manual) Nucleated RBC % Seg Neutrophils # Seg Neutrophils # Man Lymphocytes # (Manual) Monocytes # (Manual) Eosinophils # (Manual) PT INR Fibrinogen dRVVT Confirm Interp Factor V Activity POC ABG pH 7.459 H POC ABG pCO2 27.1 L POC ABG pO2 140 H Sodium Potassium Chloride Carbon Dioxide BUN Creatinine Glucose POC Glucose 114 H 127 H Lactic Acid Calcium Phosphorus Magnesium Direct Bilirubin AST ALT Alkaline Phosphatase Lactate Dehydrogenase Troponin T C-Reactive Protein Total Protein Albumin Prealbumin Triglycerides Cholesterol LDL Cholesterol Direct HDL Cholesterol Urine pH Urine WBC (Auto) Urine Creatinine Urine Total Protein Vancomycin Trough Rheumatoid Factor Complement C4 Miscellaneous Test Crossmatch 09/27/16 09/27/16 09/28/16 Unknown Unknown 03:45 WBC RBC 2.49 L Hgb 6.8 L Hct 20.7 L MCV MCH 27 L MCHC RDW 22.1 H Plt Count Lymph % (Auto) [place] % (Auto) Lymph # [place] # Baso # Seg Neutrophils % Seg Neuts % (Manual) 32.0 L Lymphocytes % (Manual) 12.0 L Monocytes % (Manual) 11.0 H Eosinophils % (Manual) 10.0 H Basophils % (Manual) Nucleated RBC % Seg Neutrophils # Seg Neutrophils # Man Lymphocytes # (Manual) 1.0 L Monocytes # (Manual) 0.9 H Eosinophils # (Manual) 0.8 H PT INR Fibrinogen dRVVT Confirm Interp Factor V Activity POC ABG pH POC ABG pCO2 POC ABG pO2 Sodium 135 L 135 L Potassium 3.5 L Chloride 93.6 L 94.4 L Carbon Dioxide 17 L 21 L BUN 45 H 28 H Creatinine 3.3 H 2.5 H Glucose 106 H POC Glucose Lactic Acid Calcium 7.3 L 7.1 L Phosphorus Magnesium Direct Bilirubin AST ALT Alkaline Phosphatase Lactate Dehydrogenase Troponin T C-Reactive Protein Total Protein Albumin Prealbumin Triglycerides Cholesterol LDL Cholesterol Direct HDL Cholesterol Urine pH Urine WBC (Auto) Urine Creatinine Urine Total Protein Vancomycin Trough Rheumatoid Factor Complement C4 Miscellaneous Test Crossmatch 09/28/16 09/28/16 09/28/16 03:45 07:25 11:58 WBC 13.3 H RBC 3.01 L Hgb 8.4 L Hct 25.0 L MCV MCH MCHC RDW 20.5 H Plt Count 128 L Lymph % (Auto) [place] % (Auto) Lymph # [place] # Baso # Seg Neutrophils % Seg Neuts % (Manual) Lymphocytes % (Manual) 7.0 L Monocytes % (Manual) Eosinophils % (Manual) 6.0 H Basophils % (Manual) Nucleated RBC % Seg Neutrophils # Seg Neutrophils # Man Lymphocytes # (Manual) 0.9 L Monocytes # (Manual) Eosinophils # (Manual) 0.8 H PT INR Fibrinogen dRVVT Confirm Interp Factor V Activity POC ABG pH POC ABG pCO2 POC ABG pO2 Sodium Potassium Chloride Carbon Dioxide BUN Creatinine Glucose POC Glucose 121 H Lactic Acid 4.50 H* Calcium Phosphorus Magnesium Direct Bilirubin AST ALT Alkaline Phosphatase Lactate Dehydrogenase Troponin T C-Reactive Protein Total Protein Albumin Prealbumin Triglycerides Cholesterol LDL Cholesterol Direct HDL Cholesterol Urine pH Urine WBC (Auto) Urine Creatinine Urine Total Protein Vancomycin Trough Rheumatoid Factor Complement C4 Miscellaneous Test Crossmatch 09/29/16 09/29/16 09/29/16 06:45 06:45 06:45 WBC 14.9 H RBC 2.74 L Hgb 7.6 L Hct 23.2 L MCV MCH MCHC RDW 20.5 H Plt Count 81 L Lymph % (Auto) [place] % (Auto) Lymph # [place] # Baso # Seg Neutrophils % Seg Neuts % (Manual) 81.0 H Lymphocytes % (Manual) 4.0 L Monocytes % (Manual) Eosinophils % (Manual) Basophils % (Manual) Nucleated RBC % Seg Neutrophils # Seg Neutrophils # Man 12.1 H Lymphocytes # (Manual) 0.6 L Monocytes # (Manual) Eosinophils # (Manual) PT INR Fibrinogen dRVVT Confirm Interp Factor V Activity POC ABG pH POC ABG pCO2 POC ABG pO2 Sodium 133 L Potassium 3.4 L Chloride 92.5 L Carbon Dioxide 21 L BUN 33 H Creatinine 3.0 H Glucose POC Glucose Lactic Acid Calcium 6.6 L Phosphorus Magnesium 1.40 L Direct Bilirubin 0.9 H AST ALT Alkaline Phosphatase Lactate Dehydrogenase Troponin T C-Reactive Protein Total Protein 4.3 L Albumin 1.3 L Prealbumin Triglycerides Cholesterol LDL Cholesterol Direct HDL Cholesterol Urine pH Urine WBC (Auto) Urine Creatinine Urine Total Protein Vancomycin Trough Rheumatoid Factor Complement C4 Miscellaneous Test Crossmatch 09/29/16 09/29/16 09/30/16 17:52 20:12 00:07 WBC RBC Hgb Hct MCV MCH MCHC RDW Plt Count Lymph % (Auto) [place] % (Auto) Lymph # [place] # Baso # Seg Neutrophils % Seg Neuts % (Manual) Lymphocytes % (Manual) Monocytes % (Manual) Eosinophils % (Manual) Basophils % (Manual) Nucleated RBC % Seg Neutrophils # Seg Neutrophils # Man Lymphocytes # (Manual) Monocytes # (Manual) Eosinophils # (Manual) PT INR Fibrinogen dRVVT Confirm Interp Factor V Activity POC ABG pH POC ABG pCO2 POC ABG pO2 Sodium Potassium Chloride Carbon Dioxide BUN Creatinine Glucose POC Glucose 50 L 51 L Lactic Acid Calcium Phosphorus Magnesium Direct Bilirubin AST ALT Alkaline Phosphatase Lactate Dehydrogenase Troponin T 0.204 H* C-Reactive Protein Total Protein Albumin Prealbumin Triglycerides Cholesterol 31 L LDL Cholesterol Direct 4 L HDL Cholesterol 3 L Urine pH Urine WBC (Auto) Urine Creatinine Urine Total Protein Vancomycin Trough Rheumatoid Factor Complement C4 Miscellaneous Test Crossmatch 09/30/16 09/30/16 09/30/16 01:30 05:15 06:10 WBC RBC Hgb Hct MCV MCH MCHC RDW Plt Count Lymph % (Auto) [place] % (Auto) Lymph # [place] # Baso # Seg Neutrophils % Seg Neuts % (Manual) Lymphocytes % (Manual) Monocytes % (Manual) Eosinophils % (Manual) Basophils % (Manual) Nucleated RBC % Seg Neutrophils # Seg Neutrophils # Man Lymphocytes # (Manual) Monocytes # (Manual) Eosinophils # (Manual) PT INR Fibrinogen dRVVT Confirm Interp Factor V Activity POC ABG pH POC ABG pCO2 POC ABG pO2 Sodium 133 L Potassium 3.2 L Chloride 93.2 L Carbon Dioxide 19 L BUN 36 H Creatinine 3.2 H Glucose 104 H POC Glucose 167 H 146 H Lactic Acid Calcium 6.4 L Phosphorus Magnesium 1.60 L Direct Bilirubin AST ALT Alkaline Phosphatase Lactate Dehydrogenase Troponin T C-Reactive Protein Total Protein Albumin Prealbumin Triglycerides Cholesterol LDL Cholesterol Direct HDL Cholesterol Urine pH Urine WBC (Auto) Urine Creatinine Urine Total Protein Vancomycin Trough Rheumatoid Factor Complement C4 Miscellaneous Test Crossmatch 09/30/16 09/30/16 09/30/16 11:26 13:39 18:38 WBC RBC Hgb Hct MCV MCH MCHC RDW Plt Count Lymph % (Auto) [place] % (Auto) Lymph # [place] # Baso # Seg Neutrophils % Seg Neuts % (Manual) Lymphocytes % (Manual) Monocytes % (Manual) Eosinophils % (Manual) Basophils % (Manual) Nucleated RBC % Seg Neutrophils # Seg Neutrophils # Man Lymphocytes # (Manual) Monocytes # (Manual) Eosinophils # (Manual) PT INR Fibrinogen dRVVT Confirm Interp Factor V Activity POC ABG pH 7.479 H POC ABG pCO2 29.8 L POC ABG pO2 117 H Sodium Potassium Chloride Carbon Dioxide BUN Creatinine Glucose POC Glucose 140 H 122 H Lactic Acid Calcium Phosphorus Magnesium Direct Bilirubin AST ALT Alkaline Phosphatase Lactate Dehydrogenase Troponin T C-Reactive Protein Total Protein Albumin Prealbumin Triglycerides Cholesterol LDL Cholesterol Direct HDL Cholesterol Urine pH Urine WBC (Auto) Urine Creatinine Urine Total Protein Vancomycin Trough Rheumatoid Factor Complement C4 Miscellaneous Test Crossmatch 10/01/16 10/01/16 10/01/16 06:00 06:00 12:37 WBC 12.6 H RBC 2.75 L Hgb 7.3 L Hct 23.3 L MCV MCH 27 L MCHC RDW 20.6 H Plt Count 72 L Lymph % (Auto) [place] % (Auto) Lymph # [place] # Baso # Seg Neutrophils % Seg Neuts % (Manual) 31.0 L Lymphocytes % (Manual) 8.0 L Monocytes % (Manual) Eosinophils % (Manual) Basophils % (Manual) Nucleated RBC % 3.0 H Seg Neutrophils # Seg Neutrophils # Man Lymphocytes # (Manual) 1.0 L Monocytes # (Manual) Eosinophils # (Manual) PT INR Fibrinogen dRVVT Confirm Interp Factor V Activity POC ABG pH POC ABG pCO2 POC ABG pO2 Sodium 127 L Potassium Chloride 86.8 L Carbon Dioxide 20 L BUN 42 H Creatinine 3.5 H Glucose POC Glucose 65 L Lactic Acid Calcium 7.0 L Phosphorus Magnesium Direct Bilirubin AST ALT Alkaline Phosphatase Lactate Dehydrogenase Troponin T C-Reactive Protein Total Protein Albumin Prealbumin Triglycerides Cholesterol LDL Cholesterol Direct HDL Cholesterol Urine pH Urine WBC (Auto) Urine Creatinine Urine Total Protein Vancomycin Trough Rheumatoid Factor Complement C4 Miscellaneous Test Crossmatch 10/01/16 10/01/16 10/02/16 17:39 23:32 00:59 WBC RBC Hgb Hct MCV MCH MCHC RDW Plt Count Lymph % (Auto) [place] % (Auto) Lymph # [place] # Baso # Seg Neutrophils % Seg Neuts % (Manual) Lymphocytes % (Manual) Monocytes % (Manual) Eosinophils % (Manual) Basophils % (Manual) Nucleated RBC % Seg Neutrophils # Seg Neutrophils # Man Lymphocytes # (Manual) Monocytes # (Manual) Eosinophils # (Manual) PT INR Fibrinogen dRVVT Confirm Interp Factor V Activity POC ABG pH POC ABG pCO2 POC ABG pO2 Sodium Potassium Chloride Carbon Dioxide BUN Creatinine Glucose POC Glucose 107 H 52 L 145 H Lactic Acid Calcium Phosphorus Magnesium Direct Bilirubin AST ALT Alkaline Phosphatase Lactate Dehydrogenase Troponin T C-Reactive Protein Total Protein Albumin Prealbumin Triglycerides Cholesterol LDL Cholesterol Direct HDL Cholesterol Urine pH Urine WBC (Auto) Urine Creatinine Urine Total Protein Vancomycin Trough Rheumatoid Factor Complement C4 Miscellaneous Test Crossmatch 10/02/16 10/02/16 10/02/16 10:30 10:50 10:50 WBC 14.7 H RBC 2.76 L Hgb 7.4 L Hct 23.6 L MCV MCH 27 L MCHC RDW 20.2 H Plt Count 79 L Lymph % (Auto) [place] % (Auto) Lymph # [place] # Baso # Seg Neutrophils % Seg Neuts % (Manual) 86.0 H Lymphocytes % (Manual) 6.0 L Monocytes % (Manual) Eosinophils % (Manual) Basophils % (Manual) Nucleated RBC % Seg Neutrophils # Seg Neutrophils # Man 12.6 H Lymphocytes # (Manual) 0.9 L Monocytes # (Manual) Eosinophils # (Manual) PT INR Fibrinogen dRVVT Confirm Interp Factor V Activity POC ABG pH 7.486 H POC ABG pCO2 30.1 L POC ABG pO2 108 H Sodium 131 L Potassium 3.4 L Chloride 89.9 L Carbon Dioxide BUN 26 H Creatinine 2.6 H Glucose POC Glucose Lactic Acid Calcium 7.0 L Phosphorus Magnesium Direct Bilirubin AST ALT Alkaline Phosphatase Lactate Dehydrogenase Troponin T C-Reactive Protein Total Protein Albumin Prealbumin Triglycerides Cholesterol LDL Cholesterol Direct HDL Cholesterol Urine pH Urine WBC (Auto) Urine Creatinine Urine Total Protein Vancomycin Trough Rheumatoid Factor Complement C4 Miscellaneous Test Crossmatch 10/02/16 10/03/16 10/03/16 23:45 00:45 05:10 WBC 12.9 H RBC 2.77 L Hgb 7.6 L Hct 23.7 L MCV MCH 27 L MCHC RDW 19.7 H Plt Count 89 L Lymph % (Auto) [place] % (Auto) Lymph # [place] # Baso # Seg Neutrophils % Seg Neuts % (Manual) Lymphocytes % (Manual) 8.0 L Monocytes % (Manual) Eosinophils % (Manual) Basophils % (Manual) Nucleated RBC % Seg Neutrophils # 11.9 H Seg Neutrophils # Man Lymphocytes # (Manual) 1.0 L Monocytes # (Manual) Eosinophils # (Manual) PT INR Fibrinogen dRVVT Confirm Interp Factor V Activity POC ABG pH POC ABG pCO2 POC ABG pO2 Sodium Potassium Chloride Carbon Dioxide BUN Creatinine Glucose POC Glucose 55 L 199 H Lactic Acid Calcium Phosphorus Magnesium Direct Bilirubin AST ALT Alkaline Phosphatase Lactate Dehydrogenase Troponin T C-Reactive Protein Total Protein Albumin Prealbumin Triglycerides Cholesterol LDL Cholesterol Direct HDL Cholesterol Urine pH Urine WBC (Auto) Urine Creatinine Urine Total Protein Vancomycin Trough Rheumatoid Factor Complement C4 Miscellaneous Test Crossmatch 10/03/16 10/03/16 10/03/16 05:10 12:14 13:18 WBC RBC Hgb Hct MCV MCH MCHC RDW Plt Count Lymph % (Auto) [place] % (Auto) Lymph # [place] # Baso # Seg Neutrophils % Seg Neuts % (Manual) Lymphocytes % (Manual) Monocytes % (Manual) Eosinophils % (Manual) Basophils % (Manual) Nucleated RBC % Seg Neutrophils # Seg Neutrophils # Man Lymphocytes # (Manual) Monocytes # (Manual) Eosinophils # (Manual) PT INR Fibrinogen dRVVT Confirm Interp Factor V Activity POC ABG pH POC ABG pCO2 POC ABG pO2 Sodium 129 L Potassium 3.3 L Chloride 88.8 L Carbon Dioxide 20 L BUN 29 H Creatinine 2.8 H Glucose POC Glucose 68 L 127 H Lactic Acid Calcium 7.2 L Phosphorus Magnesium Direct Bilirubin AST ALT Alkaline Phosphatase Lactate Dehydrogenase Troponin T C-Reactive Protein Total Protein Albumin Prealbumin Triglycerides Cholesterol LDL Cholesterol Direct HDL Cholesterol Urine pH Urine WBC (Auto) Urine Creatinine Urine Total Protein Vancomycin Trough Rheumatoid Factor Complement C4 Miscellaneous Test Crossmatch 10/03/16 10/03/16 10/03/16 14:42 18:21 19:09 WBC RBC Hgb Hct MCV MCH MCHC RDW Plt Count Lymph % (Auto) [place] % (Auto) Lymph # [place] # Baso # Seg Neutrophils % Seg Neuts % (Manual) Lymphocytes % (Manual) Monocytes % (Manual) Eosinophils % (Manual) Basophils % (Manual) Nucleated RBC % Seg Neutrophils # Seg Neutrophils # Man Lymphocytes # (Manual) Monocytes # (Manual) Eosinophils # (Manual) PT INR Fibrinogen dRVVT Confirm Interp Factor V Activity POC ABG pH 7.499 H POC ABG pCO2 28.4 L POC ABG pO2 44 L Sodium Potassium Chloride Carbon Dioxide BUN Creatinine Glucose POC Glucose 64 L 205 H Lactic Acid Calcium Phosphorus Magnesium Direct Bilirubin AST ALT Alkaline Phosphatase Lactate Dehydrogenase Troponin T C-Reactive Protein Total Protein Albumin Prealbumin Triglycerides Cholesterol LDL Cholesterol Direct HDL Cholesterol Urine pH Urine WBC (Auto) Urine Creatinine Urine Total Protein Vancomycin Trough Rheumatoid Factor Complement C4 Miscellaneous Test Crossmatch 10/03/16 10/04/16 10/04/16 23:33 04:18 06:30 WBC RBC 2.54 L Hgb 7.1 L Hct 21.7 L MCV MCH MCHC RDW 19.5 H Plt Count 76 L Lymph % (Auto) [place] % (Auto) Lymph # [place] # Baso # Seg Neutrophils % Seg Neuts % (Manual) 88.0 H Lymphocytes % (Manual) 6.0 L Monocytes % (Manual) Eosinophils % (Manual) Basophils % (Manual) Nucleated RBC % Seg Neutrophils # Seg Neutrophils # Man 8.8 H Lymphocytes # (Manual) 0.6 L Monocytes # (Manual) Eosinophils # (Manual) PT INR Fibrinogen dRVVT Confirm Interp Factor V Activity POC ABG pH 7.461 H POC ABG pCO2 33.6 L POC ABG pO2 211 H Sodium Potassium Chloride Carbon Dioxide BUN Creatinine Glucose POC Glucose 136 H Lactic Acid Calcium Phosphorus Magnesium Direct Bilirubin AST ALT Alkaline Phosphatase Lactate Dehydrogenase Troponin T C-Reactive Protein Total Protein Albumin Prealbumin Triglycerides Cholesterol LDL Cholesterol Direct HDL Cholesterol Urine pH Urine WBC (Auto) Urine Creatinine Urine Total Protein Vancomycin Trough Rheumatoid Factor Complement C4 Miscellaneous Test Crossmatch 10/04/16 10/04/16 10/04/16 06:30 11:45 17:54 WBC RBC Hgb Hct MCV MCH MCHC RDW Plt Count Lymph % (Auto) [place] % (Auto) Lymph # [place] # Baso # Seg Neutrophils % Seg Neuts % (Manual) Lymphocytes % (Manual) Monocytes % (Manual) Eosinophils % (Manual) Basophils % (Manual) Nucleated RBC % Seg Neutrophils # Seg Neutrophils # Man Lymphocytes # (Manual) Monocytes # (Manual) Eosinophils # (Manual) PT INR Fibrinogen dRVVT Confirm Interp Factor V Activity POC ABG pH POC ABG pCO2 POC ABG pO2 Sodium 128 L Potassium Chloride 87.4 L Carbon Dioxide 20 L BUN 34 H Creatinine 2.9 H Glucose 127 H POC Glucose 158 H 160 H Lactic Acid Calcium 7.4 L Phosphorus Magnesium Direct Bilirubin AST ALT Alkaline Phosphatase Lactate Dehydrogenase Troponin T C-Reactive Protein Total Protein Albumin Prealbumin Triglycerides Cholesterol LDL Cholesterol Direct HDL Cholesterol Urine pH Urine WBC (Auto) Urine Creatinine Urine Total Protein Vancomycin Trough Rheumatoid Factor Complement C4 Miscellaneous Test Crossmatch 10/04/16 10/05/16 10/05/16 23:25 04:30 05:00 WBC RBC 2.64 L Hgb 7.5 L Hct 22.6 L MCV MCH MCHC RDW 19.3 H Plt Count 80 L Lymph % (Auto) [place] % (Auto) Lymph # [place] # Baso # Seg Neutrophils % Seg Neuts % (Manual) Lymphocytes % (Manual) 12.0 L Monocytes % (Manual) Eosinophils % (Manual) Basophils % (Manual) Nucleated RBC % Seg Neutrophils # Seg Neutrophils # Man Lymphocytes # (Manual) Monocytes # (Manual) Eosinophils # (Manual) PT INR Fibrinogen dRVVT Confirm Interp Factor V Activity POC ABG pH 7.475 H POC ABG pCO2 33.3 L POC ABG pO2 140 H Sodium Potassium Chloride Carbon Dioxide BUN Creatinine Glucose POC Glucose 141 H Lactic Acid Calcium Phosphorus Magnesium Direct Bilirubin AST ALT Alkaline Phosphatase Lactate Dehydrogenase Troponin T C-Reactive Protein Total Protein Albumin Prealbumin Triglycerides Cholesterol LDL Cholesterol Direct HDL Cholesterol Urine pH Urine WBC (Auto) Urine Creatinine Urine Total Protein Vancomycin Trough Rheumatoid Factor Complement C4 Miscellaneous Test Crossmatch 10/05/16 10/05/16 10/05/16 05:00 05:09 12:58 WBC RBC Hgb Hct MCV MCH MCHC RDW Plt Count Lymph % (Auto) [place] % (Auto) Lymph # [place] # Baso # Seg Neutrophils % Seg Neuts % (Manual) Lymphocytes % (Manual) Monocytes % (Manual) Eosinophils % (Manual) Basophils % (Manual) Nucleated RBC % Seg Neutrophils # Seg Neutrophils # Man Lymphocytes # (Manual) Monocytes # (Manual) Eosinophils # (Manual) PT INR Fibrinogen dRVVT Confirm Interp Factor V Activity POC ABG pH POC ABG pCO2 POC ABG pO2 Sodium 131 L Potassium Chloride 94.0 L Carbon Dioxide 20 L BUN 22 H Creatinine 2.0 H Glucose 123 H POC Glucose 166 H 179 H Lactic Acid Calcium 7.7 L Phosphorus 2.20 L D Magnesium Direct Bilirubin AST ALT Alkaline Phosphatase Lactate Dehydrogenase Troponin T C-Reactive Protein Total Protein Albumin Prealbumin Triglycerides Cholesterol LDL Cholesterol Direct HDL Cholesterol Urine pH Urine WBC (Auto) Urine Creatinine Urine Total Protein Vancomycin Trough Rheumatoid Factor Complement C4 Miscellaneous Test Crossmatch 10/05/16 10/05/16 10/05/16 15:50 18:53 23:12 WBC RBC Hgb Hct MCV MCH MCHC RDW Plt Count Lymph % (Auto) [place] % (Auto) Lymph # [place] # Baso # Seg Neutrophils % Seg Neuts % (Manual) Lymphocytes % (Manual) Monocytes % (Manual) Eosinophils % (Manual) Basophils % (Manual) Nucleated RBC % Seg Neutrophils # Seg Neutrophils # Man Lymphocytes # (Manual) Monocytes # (Manual) Eosinophils # (Manual) PT INR Fibrinogen dRVVT Confirm Interp Factor V Activity POC ABG pH POC ABG pCO2 POC ABG pO2 Sodium Potassium Chloride Carbon Dioxide BUN Creatinine Glucose POC Glucose 150 H 164 H Lactic Acid Calcium Phosphorus Magnesium Direct Bilirubin AST ALT Alkaline Phosphatase Lactate Dehydrogenase Troponin T C-Reactive Protein Total Protein Albumin Prealbumin Triglycerides Cholesterol LDL Cholesterol Direct HDL Cholesterol Urine pH Urine WBC (Auto) Urine Creatinine Urine Total Protein Vancomycin Trough Rheumatoid Factor Complement C4 Miscellaneous Test Crossmatch See Detail 10/06/16 10/06/16 10/06/16 03:50 03:50 04:53 WBC RBC 3.00 L Hgb 8.6 L Hct 25.8 L MCV MCH MCHC RDW 17.9 H Plt Count 65 L Lymph % (Auto) [place] % (Auto) Lymph # [place] # Baso # Seg Neutrophils % Seg Neuts % (Manual) 30.0 L Lymphocytes % (Manual) 5.0 L Monocytes % (Manual) Eosinophils % (Manual) Basophils % (Manual) Nucleated RBC % Seg Neutrophils # Seg Neutrophils # Man Lymphocytes # (Manual) 0.4 L Monocytes # (Manual) Eosinophils # (Manual) PT INR Fibrinogen dRVVT Confirm Interp Factor V Activity POC ABG pH 7.310 L POC ABG pCO2 49.0 H POC ABG pO2 Sodium 133 L Potassium Chloride 95.9 L Carbon Dioxide BUN 26 H Creatinine 2.0 H Glucose 116 H POC Glucose Lactic Acid Calcium 7.8 L Phosphorus Magnesium Direct Bilirubin AST ALT Alkaline Phosphatase Lactate Dehydrogenase Troponin T C-Reactive Protein Total Protein Albumin Prealbumin Triglycerides Cholesterol LDL Cholesterol Direct HDL Cholesterol Urine pH Urine WBC (Auto) Urine Creatinine Urine Total Protein Vancomycin Trough Rheumatoid Factor Complement C4 Miscellaneous Test Crossmatch 10/06/16 10/06/16 10/06/16 05:23 11:52 18:34 WBC RBC Hgb Hct MCV MCH MCHC RDW Plt Count Lymph % (Auto) [place] % (Auto) Lymph # [place] # Baso # Seg Neutrophils % Seg Neuts % (Manual) Lymphocytes % (Manual) Monocytes % (Manual) Eosinophils % (Manual) Basophils % (Manual) Nucleated RBC % Seg Neutrophils # Seg Neutrophils # Man Lymphocytes # (Manual) Monocytes # (Manual) Eosinophils # (Manual) PT INR Fibrinogen dRVVT Confirm Interp Factor V Activity POC ABG pH POC ABG pCO2 POC ABG pO2 Sodium Potassium Chloride Carbon Dioxide BUN Creatinine Glucose POC Glucose 126 H 116 H 129 H Lactic Acid Calcium Phosphorus Magnesium Direct Bilirubin AST ALT Alkaline Phosphatase Lactate Dehydrogenase Troponin T C-Reactive Protein Total Protein Albumin Prealbumin Triglycerides Cholesterol LDL Cholesterol Direct HDL Cholesterol Urine pH Urine WBC (Auto) Urine Creatinine Urine Total Protein Vancomycin Trough Rheumatoid Factor Complement C4 Miscellaneous Test Crossmatch 10/07/16 10/07/16 10/07/16 03:45 05:00 10:00 WBC 17.0 H RBC 2.68 L Hgb 7.3 L Hct 25.3 L MCV MCH 27 L MCHC 29 L RDW 19.6 H Plt Count 74 L Lymph % (Auto) [place] % (Auto) Lymph # [place] # Baso # Seg Neutrophils % Seg Neuts % (Manual) Lymphocytes % (Manual) 12.0 L Monocytes % (Manual) Eosinophils % (Manual) Basophils % (Manual) Nucleated RBC % 4.0 H Seg Neutrophils # Seg Neutrophils # Man 10.7 H Lymphocytes # (Manual) Monocytes # (Manual) Eosinophils # (Manual) PT INR Fibrinogen dRVVT Confirm Interp Factor V Activity POC ABG pH POC ABG pCO2 POC ABG pO2 Sodium 130 L Potassium 3.2 L Chloride 93.9 L Carbon Dioxide 20 L BUN 44 H Creatinine 2.7 H Glucose 129 H POC Glucose Lactic Acid Calcium 7.4 L Phosphorus Magnesium Direct Bilirubin AST ALT 6 L Alkaline Phosphatase 195 H Lactate Dehydrogenase Troponin T C-Reactive Protein Total Protein 4.9 L Albumin 1.0 L Prealbumin Triglycerides Cholesterol LDL Cholesterol Direct HDL Cholesterol Urine pH Urine WBC (Auto) Urine Creatinine Urine Total Protein Vancomycin Trough Rheumatoid Factor Complement C4 Miscellaneous Test Flexitest 1 H Crossmatch 10/07/16 10/07/16 10/07/16 10:00 11:24 18:10 WBC RBC Hgb Hct MCV MCH MCHC RDW Plt Count Lymph % (Auto) [place] % (Auto) Lymph # [place] # Baso # Seg Neutrophils % Seg Neuts % (Manual) Lymphocytes % (Manual) Monocytes % (Manual) Eosinophils % (Manual) Basophils % (Manual) Nucleated RBC % Seg Neutrophils # Seg Neutrophils # Man Lymphocytes # (Manual) Monocytes # (Manual) Eosinophils # (Manual) PT INR Fibrinogen dRVVT Confirm Interp Factor V Activity POC ABG pH POC ABG pCO2 POC ABG pO2 Sodium Potassium Chloride Carbon Dioxide BUN Creatinine Glucose POC Glucose 116 H 130 H Lactic Acid Calcium Phosphorus Magnesium Direct Bilirubin AST ALT Alkaline Phosphatase Lactate Dehydrogenase Troponin T C-Reactive Protein 19.40 H Total Protein Albumin Prealbumin Triglycerides Cholesterol LDL Cholesterol Direct HDL Cholesterol Urine pH Urine WBC (Auto) Urine Creatinine Urine Total Protein Vancomycin Trough Rheumatoid Factor Complement C4 Miscellaneous Test Crossmatch 10/07/16 10/08/16 10/08/16 18:30 00:00 04:00 WBC RBC Hgb Hct MCV MCH MCHC RDW Plt Count Lymph % (Auto) [place] % (Auto) Lymph # [place] # Baso # Seg Neutrophils % Seg Neuts % (Manual) Lymphocytes % (Manual) Monocytes % (Manual) Eosinophils % (Manual) Basophils % (Manual) Nucleated RBC % Seg Neutrophils # Seg Neutrophils # Man Lymphocytes # (Manual) Monocytes # (Manual) Eosinophils # (Manual) PT INR Fibrinogen dRVVT Confirm Interp Factor V Activity POC ABG pH POC ABG pCO2 POC ABG pO2 Sodium 132 L Potassium 3.3 L Chloride 93.6 L Carbon Dioxide 17 L BUN 59 H Creatinine 2.7 H Glucose 121 H POC Glucose 122 H Lactic Acid Calcium 7.6 L Phosphorus Magnesium Direct Bilirubin AST ALT Alkaline Phosphatase Lactate Dehydrogenase Troponin T C-Reactive Protein Total Protein Albumin Prealbumin Triglycerides Cholesterol LDL Cholesterol Direct HDL Cholesterol Urine pH Urine WBC (Auto) > 182.0 H Urine Creatinine Urine Total Protein Vancomycin Trough Rheumatoid Factor Complement C4 Miscellaneous Test Crossmatch 10/08/16 10/08/16 10/08/16 04:30 05:30 11:51 WBC RBC 5.15 H Hgb 14.4 H D Hct 44.5 H D MCV MCH MCHC RDW 19.5 H Plt Count 56 L Lymph % (Auto) [place] % (Auto) Lymph # [place] # Baso # Seg Neutrophils % Seg Neuts % (Manual) 24.0 L Lymphocytes % (Manual) 8.0 L Monocytes % (Manual) Eosinophils % (Manual) Basophils % (Manual) Nucleated RBC % 9.0 H Seg Neutrophils # Seg Neutrophils # Man Lymphocytes # (Manual) 0.7 L Monocytes # (Manual) Eosinophils # (Manual) PT INR Fibrinogen dRVVT Confirm Interp Factor V Activity POC ABG pH POC ABG pCO2 POC ABG pO2 Sodium Potassium Chloride Carbon Dioxide BUN Creatinine Glucose POC Glucose 125 H 150 H Lactic Acid Calcium Phosphorus Magnesium Direct Bilirubin AST ALT Alkaline Phosphatase Lactate Dehydrogenase Troponin T C-Reactive Protein Total Protein Albumin Prealbumin Triglycerides Cholesterol LDL Cholesterol Direct HDL Cholesterol Urine pH Urine WBC (Auto) Urine Creatinine Urine Total Protein Vancomycin Trough Rheumatoid Factor Complement C4 Miscellaneous Test Crossmatch 10/08/16 10/08/16 10/08/16 12:49 17:07 19:30 WBC RBC Hgb 7.1 L D Hct 22.4 L D MCV MCH MCHC RDW Plt Count Lymph % (Auto) [place] % (Auto) Lymph # [place] # Baso # Seg Neutrophils % Seg Neuts % (Manual) Lymphocytes % (Manual) Monocytes % (Manual) Eosinophils % (Manual) Basophils % (Manual) Nucleated RBC % Seg Neutrophils # Seg Neutrophils # Man Lymphocytes # (Manual) Monocytes # (Manual) Eosinophils # (Manual) PT INR Fibrinogen dRVVT Confirm Interp Factor V Activity POC ABG pH POC ABG pCO2 28.2 L POC ABG pO2 111 H Sodium Potassium Chloride Carbon Dioxide BUN Creatinine Glucose POC Glucose 145 H Lactic Acid Calcium Phosphorus Magnesium Direct Bilirubin AST ALT Alkaline Phosphatase Lactate Dehydrogenase Troponin T C-Reactive Protein Total Protein Albumin Prealbumin Triglycerides Cholesterol LDL Cholesterol Direct HDL Cholesterol Urine pH Urine WBC (Auto) Urine Creatinine Urine Total Protein Vancomycin Trough Rheumatoid Factor Complement C4 Miscellaneous Test Crossmatch 10/08/16 10/09/16 10/09/16 19:30 03:45 03:45 WBC 12.6 H RBC 2.36 L Hgb 6.7 L Hct 21.1 L MCV MCH MCHC RDW 19.5 H Plt Count 75 L Lymph % (Auto) [place] % (Auto) Lymph # [place] # Baso # Seg Neutrophils % Seg Neuts % (Manual) Lymphocytes % (Manual) Monocytes % (Manual) 10.0 H Eosinophils % (Manual) Basophils % (Manual) Nucleated RBC % 3.0 H Seg Neutrophils # Seg Neutrophils # Man Lymphocytes # (Manual) Monocytes # (Manual) 1.3 H Eosinophils # (Manual) PT 18.0 H INR 1.41 H Fibrinogen dRVVT Confirm Interp Factor V Activity POC ABG pH POC ABG pCO2 POC ABG pO2 Sodium 135 L Potassium Chloride Carbon Dioxide 17 L BUN 81 H Creatinine 3.2 H Glucose 109 H POC Glucose Lactic Acid Calcium 7.4 L Phosphorus 4.60 H D Magnesium Direct Bilirubin AST ALT Alkaline Phosphatase Lactate Dehydrogenase Troponin T C-Reactive Protein Total Protein Albumin Prealbumin Triglycerides Cholesterol LDL Cholesterol Direct HDL Cholesterol Urine pH Urine WBC (Auto) Urine Creatinine Urine Total Protein Vancomycin Trough Rheumatoid Factor Complement C4 Miscellaneous Test Crossmatch 10/09/16 10/09/16 10/09/16 03:45 05:14 07:20 WBC RBC Hgb Hct MCV MCH MCHC RDW Plt Count Lymph % (Auto) [place] % (Auto) Lymph # [place] # Baso # Seg Neutrophils % Seg Neuts % (Manual) Lymphocytes % (Manual) Monocytes % (Manual) Eosinophils % (Manual) Basophils % (Manual) Nucleated RBC % Seg Neutrophils # Seg Neutrophils # Man Lymphocytes # (Manual) Monocytes # (Manual) Eosinophils # (Manual) PT 19.0 H INR 1.51 H Fibrinogen dRVVT Confirm Interp Factor V Activity POC ABG pH POC ABG pCO2 POC ABG pO2 Sodium Potassium Chloride Carbon Dioxide BUN Creatinine Glucose POC Glucose 151 H Lactic Acid Calcium Phosphorus Magnesium Direct Bilirubin AST ALT Alkaline Phosphatase Lactate Dehydrogenase Troponin T C-Reactive Protein Total Protein Albumin Prealbumin Triglycerides Cholesterol LDL Cholesterol Direct HDL Cholesterol Urine pH Urine WBC (Auto) Urine Creatinine Urine Total Protein Vancomycin Trough Rheumatoid Factor Complement C4 Miscellaneous Test Crossmatch See Detail 10/09/16 10/09/16 10/09/16 11:46 16:20 16:43 WBC RBC Hgb 7.2 L Hct 22.2 L MCV MCH MCHC RDW Plt Count Lymph % (Auto) [place] % (Auto) Lymph # [place] # Baso # Seg Neutrophils % Seg Neuts % (Manual) Lymphocytes % (Manual) Monocytes % (Manual) Eosinophils % (Manual) Basophils % (Manual) Nucleated RBC % Seg Neutrophils # Seg Neutrophils # Man Lymphocytes # (Manual) Monocytes # (Manual) Eosinophils # (Manual) PT INR Fibrinogen dRVVT Confirm Interp Factor V Activity POC ABG pH POC ABG pCO2 POC ABG pO2 Sodium Potassium Chloride Carbon Dioxide BUN Creatinine Glucose POC Glucose 133 H 141 H Lactic Acid Calcium Phosphorus Magnesium Direct Bilirubin AST ALT Alkaline Phosphatase Lactate Dehydrogenase Troponin T C-Reactive Protein Total Protein Albumin Prealbumin Triglycerides Cholesterol LDL Cholesterol Direct HDL Cholesterol Urine pH Urine WBC (Auto) Urine Creatinine Urine Total Protein Vancomycin Trough Rheumatoid Factor Complement C4 Miscellaneous Test Crossmatch 10/10/16 10/10/16 10/10/16 05:00 05:00 11:19 WBC 18.5 H RBC 2.19 L Hgb 6.4 L Hct 19.6 L* MCV MCH MCHC RDW 19.3 H Plt Count 93 L Lymph % (Auto) [place] % (Auto) Lymph # [place] # Baso # Seg Neutrophils % Seg Neuts % (Manual) Lymphocytes % (Manual) 10.0 L Monocytes % (Manual) Eosinophils % (Manual) Basophils % (Manual) Nucleated RBC % 4.0 H Seg Neutrophils # Seg Neutrophils # Man 11.3 H Lymphocytes # (Manual) Monocytes # (Manual) Eosinophils # (Manual) PT INR Fibrinogen dRVVT Confirm Interp Factor V Activity POC ABG pH POC ABG pCO2 POC ABG pO2 Sodium Potassium 5.7 H D Chloride Carbon Dioxide 16 L BUN 94 H Creatinine 3.1 H Glucose 131 H POC Glucose 153 H Lactic Acid Calcium 8.2 L Phosphorus 5.10 H Magnesium 2.40 H Direct Bilirubin 0.3 H AST ALT < 5 L Alkaline Phosphatase 319 H Lactate Dehydrogenase Troponin T C-Reactive Protein Total Protein 5.1 L Albumin 1.0 L Prealbumin Triglycerides Cholesterol LDL Cholesterol Direct HDL Cholesterol Urine pH Urine WBC (Auto) Urine Creatinine Urine Total Protein Vancomycin Trough Rheumatoid Factor Complement C4 Miscellaneous Test Crossmatch 10/10/16 10/10/16 10/11/16 17:50 23:30 04:15 WBC RBC Hgb Hct MCV MCH MCHC RDW Plt Count Lymph % (Auto) [place] % (Auto) Lymph # [place] # Baso # Seg Neutrophils % Seg Neuts % (Manual) Lymphocytes % (Manual) Monocytes % (Manual) Eosinophils % (Manual) Basophils % (Manual) Nucleated RBC % Seg Neutrophils # Seg Neutrophils # Man Lymphocytes # (Manual) Monocytes # (Manual) Eosinophils # (Manual) PT INR Fibrinogen dRVVT Confirm Interp Factor V Activity POC ABG pH POC ABG pCO2 POC ABG pO2 Sodium Potassium Chloride 96.4 L Carbon Dioxide 21 L BUN 57 H Creatinine 2.1 H Glucose 151 H POC Glucose 146 H 141 H Lactic Acid Calcium 8.3 L Phosphorus Magnesium Direct Bilirubin AST ALT Alkaline Phosphatase Lactate Dehydrogenase Troponin T C-Reactive Protein Total Protein Albumin Prealbumin Triglycerides Cholesterol LDL Cholesterol Direct HDL Cholesterol Urine pH Urine WBC (Auto) Urine Creatinine Urine Total Protein Vancomycin Trough Rheumatoid Factor Complement C4 Miscellaneous Test Crossmatch 10/11/16 10/11/16 10/11/16 04:15 04:15 05:30 WBC 28.3 H RBC 3.12 L Hgb 9.3 L Hct 28.7 L D MCV MCH MCHC RDW 17.7 H Plt Count 128 L Lymph % (Auto) [place] % (Auto) Lymph # [place] # Baso # Seg Neutrophils % Seg Neuts % (Manual) Lymphocytes % (Manual) Monocytes % (Manual) Eosinophils % (Manual) Basophils % (Manual) Nucleated RBC % Seg Neutrophils # Seg Neutrophils # Man Lymphocytes # (Manual) Monocytes # (Manual) Eosinophils # (Manual) PT INR Fibrinogen dRVVT Confirm Interp Factor V Activity POC ABG pH POC ABG pCO2 POC ABG pO2 Sodium Potassium Chloride Carbon Dioxide BUN Creatinine Glucose POC Glucose 167 H Lactic Acid Calcium Phosphorus Magnesium Direct Bilirubin AST ALT Alkaline Phosphatase Lactate Dehydrogenase Troponin T C-Reactive Protein 15.80 H Total Protein Albumin Prealbumin Triglycerides Cholesterol LDL Cholesterol Direct HDL Cholesterol Urine pH Urine WBC (Auto) Urine Creatinine Urine Total Protein Vancomycin Trough Rheumatoid Factor Complement C4 Miscellaneous Test Crossmatch 10/11/16 10/11/16 10/11/16 11:40 15:49 23:57 WBC RBC Hgb Hct MCV MCH MCHC RDW Plt Count Lymph % (Auto) [place] % (Auto) Lymph # [place] # Baso # Seg Neutrophils % Seg Neuts % (Manual) Lymphocytes % (Manual) Monocytes % (Manual) Eosinophils % (Manual) Basophils % (Manual) Nucleated RBC % Seg Neutrophils # Seg Neutrophils # Man Lymphocytes # (Manual) Monocytes # (Manual) Eosinophils # (Manual) PT INR Fibrinogen dRVVT Confirm Interp Factor V Activity POC ABG pH POC ABG pCO2 POC ABG pO2 Sodium Potassium Chloride Carbon Dioxide BUN Creatinine Glucose POC Glucose 139 H 168 H 161 H Lactic Acid Calcium Phosphorus Magnesium Direct Bilirubin AST ALT Alkaline Phosphatase Lactate Dehydrogenase Troponin T C-Reactive Protein Total Protein Albumin Prealbumin Triglycerides Cholesterol LDL Cholesterol Direct HDL Cholesterol Urine pH Urine WBC (Auto) Urine Creatinine Urine Total Protein Vancomycin Trough Rheumatoid Factor Complement C4 Miscellaneous Test Crossmatch 10/12/16 10/12/16 10/12/16 04:40 04:40 05:44 WBC 22.5 H RBC 2.88 L Hgb 8.8 L Hct 26.8 L MCV MCH MCHC RDW 17.8 H Plt Count Lymph % (Auto) [place] % (Auto) Lymph # [place] # Baso # Seg Neutrophils % Seg Neuts % (Manual) Lymphocytes % (Manual) Monocytes % (Manual) Eosinophils % (Manual) Basophils % (Manual) Nucleated RBC % Seg Neutrophils # Seg Neutrophils # Man Lymphocytes # (Manual) Monocytes # (Manual) Eosinophils # (Manual) PT INR Fibrinogen dRVVT Confirm Interp Factor V Activity POC ABG pH POC ABG pCO2 POC ABG pO2 Sodium 134 L Potassium Chloride 93.0 L Carbon Dioxide BUN 74 H Creatinine 2.5 H Glucose 137 H POC Glucose 158 H Lactic Acid Calcium 8.2 L Phosphorus Magnesium Direct Bilirubin AST ALT Alkaline Phosphatase Lactate Dehydrogenase Troponin T C-Reactive Protein Total Protein Albumin Prealbumin Triglycerides Cholesterol LDL Cholesterol Direct HDL Cholesterol Urine pH Urine WBC (Auto) Urine Creatinine Urine Total Protein Vancomycin Trough Rheumatoid Factor Complement C4 Miscellaneous Test Crossmatch 10/12/16 10/12/16 10/12/16 12:27 18:18 23:46 WBC RBC Hgb Hct MCV MCH MCHC RDW Plt Count Lymph % (Auto) [place] % (Auto) Lymph # [place] # Baso # Seg Neutrophils % Seg Neuts % (Manual) Lymphocytes % (Manual) Monocytes % (Manual) Eosinophils % (Manual) Basophils % (Manual) Nucleated RBC % Seg Neutrophils # Seg Neutrophils # Man Lymphocytes # (Manual) Monocytes # (Manual) Eosinophils # (Manual) PT INR Fibrinogen dRVVT Confirm Interp Factor V Activity POC ABG pH POC ABG pCO2 POC ABG pO2 Sodium Potassium Chloride Carbon Dioxide BUN Creatinine Glucose POC Glucose 153 H 140 H 150 H Lactic Acid Calcium Phosphorus Magnesium Direct Bilirubin AST ALT Alkaline Phosphatase Lactate Dehydrogenase Troponin T C-Reactive Protein Total Protein Albumin Prealbumin Triglycerides Cholesterol LDL Cholesterol Direct HDL Cholesterol Urine pH Urine WBC (Auto) Urine Creatinine Urine Total Protein Vancomycin Trough Rheumatoid Factor Complement C4 Miscellaneous Test Crossmatch 10/13/16 10/13/16 10/13/16 06:22 09:20 12:29 WBC RBC Hgb Hct MCV MCH MCHC RDW Plt Count Lymph % (Auto) [place] % (Auto) Lymph # [place] # Baso # Seg Neutrophils % Seg Neuts % (Manual) Lymphocytes % (Manual) Monocytes % (Manual) Eosinophils % (Manual) Basophils % (Manual) Nucleated RBC % Seg Neutrophils # Seg Neutrophils # Man Lymphocytes # (Manual) Monocytes # (Manual) Eosinophils # (Manual) PT INR Fibrinogen dRVVT Confirm Interp Factor V Activity POC ABG pH POC ABG pCO2 POC ABG pO2 Sodium Potassium Chloride Carbon Dioxide BUN Creatinine Glucose POC Glucose 165 H 193 H Lactic Acid Calcium Phosphorus Magnesium Direct Bilirubin AST ALT Alkaline Phosphatase Lactate Dehydrogenase Troponin T C-Reactive Protein Total Protein Albumin Prealbumin Triglycerides Cholesterol LDL Cholesterol Direct HDL Cholesterol Urine pH Urine WBC (Auto) Urine Creatinine Urine Total Protein Vancomycin Trough Rheumatoid Factor Complement C4 Miscellaneous Test Flexitest 1 H Crossmatch 10/13/16 10/13/16 10/13/16 18:09 Unknown Unknown WBC 23.4 H RBC 2.83 L Hgb 8.7 L Hct 26.1 L MCV MCH MCHC RDW 18.1 H Plt Count Lymph % (Auto) [place] % (Auto) Lymph # [place] # Baso # Seg Neutrophils % Seg Neuts % (Manual) Lymphocytes % (Manual) Monocytes % (Manual) Eosinophils % (Manual) Basophils % (Manual) Nucleated RBC % Seg Neutrophils # Seg Neutrophils # Man Lymphocytes # (Manual) Monocytes # (Manual) Eosinophils # (Manual) PT INR Fibrinogen dRVVT Confirm Interp Factor V Activity POC ABG pH POC ABG pCO2 POC ABG pO2 Sodium Potassium Chloride 95.8 L Carbon Dioxide BUN 82 H Creatinine 2.6 H Glucose 152 H POC Glucose 166 H Lactic Acid Calcium Phosphorus Magnesium Direct Bilirubin AST ALT Alkaline Phosphatase Lactate Dehydrogenase Troponin T C-Reactive Protein Total Protein Albumin Prealbumin Triglycerides Cholesterol LDL Cholesterol Direct HDL Cholesterol Urine pH Urine WBC (Auto) Urine Creatinine Urine Total Protein Vancomycin Trough Rheumatoid Factor Complement C4 Miscellaneous Test Crossmatch 10/14/16 10/14/16 10/14/16 05:38 06:35 08:10 WBC 20.7 H RBC 2.81 L Hgb 8.4 L Hct 27.2 L MCV MCH MCHC RDW 19.4 H Plt Count Lymph % (Auto) [place] % (Auto) Lymph # [place] # Baso # Seg Neutrophils % Seg Neuts % (Manual) Lymphocytes % (Manual) Monocytes % (Manual) Eosinophils % (Manual) Basophils % (Manual) Nucleated RBC % Seg Neutrophils # Seg Neutrophils # Man Lymphocytes # (Manual) Monocytes # (Manual) Eosinophils # (Manual) PT INR Fibrinogen dRVVT Confirm Interp Factor V Activity POC ABG pH POC ABG pCO2 POC ABG pO2 Sodium Potassium Chloride Carbon Dioxide BUN 58 H Creatinine 1.9 H Glucose 169 H POC Glucose 195 H Lactic Acid Calcium Phosphorus Magnesium Direct Bilirubin AST ALT Alkaline Phosphatase Lactate Dehydrogenase Troponin T C-Reactive Protein Total Protein Albumin Prealbumin Triglycerides Cholesterol LDL Cholesterol Direct HDL Cholesterol Urine pH Urine WBC (Auto) Urine Creatinine Urine Total Protein Vancomycin Trough Rheumatoid Factor Complement C4 Miscellaneous Test Crossmatch 10/14/16 10/14/16 10/14/16 11:44 17:13 23:28 WBC RBC Hgb Hct MCV MCH MCHC RDW Plt Count Lymph % (Auto) [place] % (Auto) Lymph # [place] # Baso # Seg Neutrophils % Seg Neuts % (Manual) Lymphocytes % (Manual) Monocytes % (Manual) Eosinophils % (Manual) Basophils % (Manual) Nucleated RBC % Seg Neutrophils # Seg Neutrophils # Man Lymphocytes # (Manual) Monocytes # (Manual) Eosinophils # (Manual) PT INR Fibrinogen dRVVT Confirm Interp Factor V Activity POC ABG pH POC ABG pCO2 POC ABG pO2 Sodium Potassium Chloride Carbon Dioxide BUN Creatinine Glucose POC Glucose 174 H 121 H 151 H Lactic Acid Calcium Phosphorus Magnesium Direct Bilirubin AST ALT Alkaline Phosphatase Lactate Dehydrogenase Troponin T C-Reactive Protein Total Protein Albumin Prealbumin Triglycerides Cholesterol LDL Cholesterol Direct HDL Cholesterol Urine pH Urine WBC (Auto) Urine Creatinine Urine Total Protein Vancomycin Trough Rheumatoid Factor Complement C4 Miscellaneous Test Crossmatch 10/15/16 10/15/16 10/15/16 05:06 12:26 17:48 WBC RBC Hgb Hct MCV MCH MCHC RDW Plt Count Lymph % (Auto) [place] % (Auto) Lymph # [place] # Baso # Seg Neutrophils % Seg Neuts % (Manual) Lymphocytes % (Manual) Monocytes % (Manual) Eosinophils % (Manual) Basophils % (Manual) Nucleated RBC % Seg Neutrophils # Seg Neutrophils # Man Lymphocytes # (Manual) Monocytes # (Manual) Eosinophils # (Manual) PT INR Fibrinogen dRVVT Confirm Interp Factor V Activity POC ABG pH POC ABG pCO2 POC ABG pO2 Sodium Potassium Chloride Carbon Dioxide BUN Creatinine Glucose POC Glucose 151 H 149 H 153 H Lactic Acid Calcium Phosphorus Magnesium Direct Bilirubin AST ALT Alkaline Phosphatase Lactate Dehydrogenase Troponin T C-Reactive Protein Total Protein Albumin Prealbumin Triglycerides Cholesterol LDL Cholesterol Direct HDL Cholesterol Urine pH Urine WBC (Auto) Urine Creatinine Urine Total Protein Vancomycin Trough Rheumatoid Factor Complement C4 Miscellaneous Test Crossmatch 10/15/16 10/15/16 10/16/16 Unknown Unknown 00:02 WBC 23.4 H RBC 2.78 L Hgb 8.5 L Hct 25.7 L MCV MCH MCHC RDW 18.7 H Plt Count Lymph % (Auto) [place] % (Auto) Lymph # [place] # Baso # Seg Neutrophils % Seg Neuts % (Manual) Lymphocytes % (Manual) Monocytes % (Manual) Eosinophils % (Manual) Basophils % (Manual) Nucleated RBC % Seg Neutrophils # Seg Neutrophils # Man Lymphocytes # (Manual) Monocytes # (Manual) Eosinophils # (Manual) PT INR Fibrinogen dRVVT Confirm Interp Factor V Activity POC ABG pH POC ABG pCO2 POC ABG pO2 Sodium Potassium Chloride Carbon Dioxide BUN 73 H Creatinine 2.3 H Glucose 120 H POC Glucose 137 H Lactic Acid Calcium Phosphorus Magnesium Direct Bilirubin AST ALT Alkaline Phosphatase Lactate Dehydrogenase Troponin T C-Reactive Protein Total Protein Albumin Prealbumin Triglycerides Cholesterol LDL Cholesterol Direct HDL Cholesterol Urine pH Urine WBC (Auto) Urine Creatinine Urine Total Protein Vancomycin Trough Rheumatoid Factor Complement C4 Miscellaneous Test Crossmatch 10/16/16 10/16/16 10/16/16 05:44 06:25 06:25 WBC 22.5 H RBC 2.76 L Hgb 8.3 L Hct 25.2 L MCV MCH MCHC RDW 18.3 H Plt Count Lymph % (Auto) [place] % (Auto) Lymph # [place] # Baso # Seg Neutrophils % Seg Neuts % (Manual) Lymphocytes % (Manual) Monocytes % (Manual) Eosinophils % (Manual) Basophils % (Manual) Nucleated RBC % Seg Neutrophils # Seg Neutrophils # Man Lymphocytes # (Manual) Monocytes # (Manual) Eosinophils # (Manual) PT INR Fibrinogen dRVVT Confirm Interp Factor V Activity POC ABG pH POC ABG pCO2 POC ABG pO2 Sodium Potassium Chloride Carbon Dioxide BUN 92 H Creatinine 3.0 H Glucose 138 H POC Glucose 110 H Lactic Acid Calcium Phosphorus Magnesium Direct Bilirubin AST ALT Alkaline Phosphatase Lactate Dehydrogenase Troponin T C-Reactive Protein Total Protein Albumin Prealbumin Triglycerides Cholesterol LDL Cholesterol Direct HDL Cholesterol Urine pH Urine WBC (Auto) Urine Creatinine Urine Total Protein Vancomycin Trough Rheumatoid Factor Complement C4 Miscellaneous Test Crossmatch 10/16/16 10/16/16 10/16/16 11:27 11:48 17:36 WBC RBC Hgb Hct MCV MCH MCHC RDW Plt Count Lymph % (Auto) [place] % (Auto) Lymph # [place] # Baso # Seg Neutrophils % Seg Neuts % (Manual) Lymphocytes % (Manual) Monocytes % (Manual) Eosinophils % (Manual) Basophils % (Manual) Nucleated RBC % Seg Neutrophils # Seg Neutrophils # Man Lymphocytes # (Manual) Monocytes # (Manual) Eosinophils # (Manual) PT INR Fibrinogen dRVVT Confirm Interp Factor V Activity POC ABG pH 7.582 H POC ABG pCO2 27.4 L POC ABG pO2 110 H Sodium Potassium Chloride Carbon Dioxide BUN Creatinine Glucose POC Glucose 121 H 133 H Lactic Acid Calcium Phosphorus Magnesium Direct Bilirubin AST ALT Alkaline Phosphatase Lactate Dehydrogenase Troponin T C-Reactive Protein Total Protein Albumin Prealbumin Triglycerides Cholesterol LDL Cholesterol Direct HDL Cholesterol Urine pH Urine WBC (Auto) Urine Creatinine Urine Total Protein Vancomycin Trough Rheumatoid Factor Complement C4 Miscellaneous Test Crossmatch 10/16/16 10/17/16 10/17/16 20:48 04:24 04:24 WBC 21.4 H RBC 2.72 L Hgb 8.0 L Hct 25.2 L MCV MCH MCHC RDW 18.0 H Plt Count Lymph % (Auto) [place] % (Auto) Lymph # [place] # Baso # Seg Neutrophils % Seg Neuts % (Manual) Lymphocytes % (Manual) Monocytes % (Manual) Eosinophils % (Manual) Basophils % (Manual) Nucleated RBC % Seg Neutrophils # Seg Neutrophils # Man Lymphocytes # (Manual) Monocytes # (Manual) Eosinophils # (Manual) PT INR Fibrinogen dRVVT Confirm Interp Factor V Activity POC ABG pH 7.561 H POC ABG pCO2 24.4 L POC ABG pO2 77 L Sodium 148 H Potassium Chloride Carbon Dioxide BUN 104 H Creatinine 3.0 H Glucose 149 H POC Glucose Lactic Acid Calcium Phosphorus Magnesium Direct Bilirubin AST ALT Alkaline Phosphatase 138 H Lactate Dehydrogenase Troponin T C-Reactive Protein Total Protein 6.2 L Albumin 1.5 L Prealbumin Triglycerides Cholesterol LDL Cholesterol Direct HDL Cholesterol Urine pH Urine WBC (Auto) Urine Creatinine Urine Total Protein Vancomycin Trough Rheumatoid Factor Complement C4 Miscellaneous Test Crossmatch 10/17/16 10/17/16 10/17/16 06:02 12:17 17:14 WBC RBC Hgb Hct MCV MCH MCHC RDW Plt Count Lymph % (Auto) [place] % (Auto) Lymph # [place] # Baso # Seg Neutrophils % Seg Neuts % (Manual) Lymphocytes % (Manual) Monocytes % (Manual) Eosinophils % (Manual) Basophils % (Manual) Nucleated RBC % Seg Neutrophils # Seg Neutrophils # Man Lymphocytes # (Manual) Monocytes # (Manual) Eosinophils # (Manual) PT INR Fibrinogen dRVVT Confirm Interp Factor V Activity POC ABG pH POC ABG pCO2 POC ABG pO2 Sodium Potassium Chloride Carbon Dioxide BUN Creatinine Glucose POC Glucose 170 H 167 H 126 H Lactic Acid Calcium Phosphorus Magnesium Direct Bilirubin AST ALT Alkaline Phosphatase Lactate Dehydrogenase Troponin T C-Reactive Protein Total Protein Albumin Prealbumin Triglycerides Cholesterol LDL Cholesterol Direct HDL Cholesterol Urine pH Urine WBC (Auto) Urine Creatinine Urine Total Protein Vancomycin Trough Rheumatoid Factor Complement C4 Miscellaneous Test Crossmatch 10/17/16 10/18/16 10/18/16 23:17 04:00 04:00 WBC 20.7 H RBC 2.47 L Hgb 7.4 L Hct 22.9 L MCV MCH MCHC RDW 17.5 H Plt Count Lymph % (Auto) [place] % (Auto) Lymph # [place] # Baso # Seg Neutrophils % Seg Neuts % (Manual) Lymphocytes % (Manual) Monocytes % (Manual) Eosinophils % (Manual) Basophils % (Manual) Nucleated RBC % Seg Neutrophils # Seg Neutrophils # Man Lymphocytes # (Manual) Monocytes # (Manual) Eosinophils # (Manual) PT INR Fibrinogen dRVVT Confirm Interp Factor V Activity POC ABG pH POC ABG pCO2 POC ABG pO2 Sodium 149 H Potassium Chloride 107.9 H Carbon Dioxide 20 L BUN 117 H Creatinine 3.2 H Glucose 119 H POC Glucose 121 H Lactic Acid Calcium Phosphorus Magnesium Direct Bilirubin AST ALT Alkaline Phosphatase Lactate Dehydrogenase Troponin T C-Reactive Protein Total Protein Albumin Prealbumin Triglycerides Cholesterol LDL Cholesterol Direct HDL Cholesterol Urine pH Urine WBC (Auto) Urine Creatinine Urine Total Protein Vancomycin Trough Rheumatoid Factor Complement C4 Miscellaneous Test Crossmatch 10/18/16 10/18/16 10/18/16 05:23 10:46 17:30 WBC RBC Hgb Hct MCV MCH MCHC RDW Plt Count Lymph % (Auto) [place] % (Auto) Lymph # [place] # Baso # Seg Neutrophils % Seg Neuts % (Manual) Lymphocytes % (Manual) Monocytes % (Manual) Eosinophils % (Manual) Basophils % (Manual) Nucleated RBC % Seg Neutrophils # Seg Neutrophils # Man Lymphocytes # (Manual) Monocytes # (Manual) Eosinophils # (Manual) PT INR Fibrinogen dRVVT Confirm Interp Factor V Activity POC ABG pH POC ABG pCO2 POC ABG pO2 Sodium Potassium Chloride Carbon Dioxide BUN Creatinine Glucose POC Glucose 119 H 155 H 124 H Lactic Acid Calcium Phosphorus Magnesium Direct Bilirubin AST ALT Alkaline Phosphatase Lactate Dehydrogenase Troponin T C-Reactive Protein Total Protein Albumin Prealbumin Triglycerides Cholesterol LDL Cholesterol Direct HDL Cholesterol Urine pH Urine WBC (Auto) Urine Creatinine Urine Total Protein Vancomycin Trough Rheumatoid Factor Complement C4 Miscellaneous Test Crossmatch 10/19/16 10/19/16 10/19/16 04:00 04:00 05:25 WBC 17.4 H RBC 2.54 L Hgb 7.7 L Hct 23.6 L MCV MCH MCHC RDW 17.3 H Plt Count Lymph % (Auto) [place] % (Auto) Lymph # [place] # Baso # Seg Neutrophils % Seg Neuts % (Manual) Lymphocytes % (Manual) Monocytes % (Manual) Eosinophils % (Manual) Basophils % (Manual) Nucleated RBC % Seg Neutrophils # Seg Neutrophils # Man Lymphocytes # (Manual) Monocytes # (Manual) Eosinophils # (Manual) PT INR Fibrinogen dRVVT Confirm Interp Factor V Activity POC ABG pH POC ABG pCO2 POC ABG pO2 Sodium Potassium Chloride Carbon Dioxide BUN 72 H Creatinine 2.1 H Glucose 116 H POC Glucose 119 H Lactic Acid Calcium Phosphorus Magnesium Direct Bilirubin AST ALT Alkaline Phosphatase Lactate Dehydrogenase Troponin T C-Reactive Protein Total Protein Albumin Prealbumin Triglycerides Cholesterol LDL Cholesterol Direct HDL Cholesterol Urine pH Urine WBC (Auto) Urine Creatinine Urine Total Protein Vancomycin Trough Rheumatoid Factor Complement C4 Miscellaneous Test Crossmatch 10/19/16 10/19/16 10/20/16 11:46 23:59 06:00 WBC RBC Hgb Hct MCV MCH MCHC RDW Plt Count Lymph % (Auto) [place] % (Auto) Lymph # [place] # Baso # Seg Neutrophils % Seg Neuts % (Manual) Lymphocytes % (Manual) Monocytes % (Manual) Eosinophils % (Manual) Basophils % (Manual) Nucleated RBC % Seg Neutrophils # Seg Neutrophils # Man Lymphocytes # (Manual) Monocytes # (Manual) Eosinophils # (Manual) PT INR Fibrinogen dRVVT Confirm Interp Factor V Activity POC ABG pH POC ABG pCO2 POC ABG pO2 Sodium Potassium Chloride Carbon Dioxide 17 L BUN 94 H Creatinine 2.7 H Glucose POC Glucose 116 H 117 H Lactic Acid Calcium Phosphorus Magnesium Direct Bilirubin AST ALT Alkaline Phosphatase Lactate Dehydrogenase Troponin T C-Reactive Protein Total Protein Albumin Prealbumin Triglycerides Cholesterol LDL Cholesterol Direct HDL Cholesterol Urine pH Urine WBC (Auto) Urine Creatinine Urine Total Protein Vancomycin Trough Rheumatoid Factor Complement C4 Miscellaneous Test Crossmatch 10/20/16 10/20/16 10/20/16 06:00 11:49 16:00 WBC 19.7 H RBC 2.51 L Hgb 7.7 L Hct 23.5 L MCV MCH MCHC RDW 17.5 H Plt Count Lymph % (Auto) [place] % (Auto) Lymph # [place] # Baso # Seg Neutrophils % Seg Neuts % (Manual) Lymphocytes % (Manual) Monocytes % (Manual) Eosinophils % (Manual) Basophils % (Manual) Nucleated RBC % Seg Neutrophils # Seg Neutrophils # Man Lymphocytes # (Manual) Monocytes # (Manual) Eosinophils # (Manual) PT INR Fibrinogen dRVVT Confirm Interp Factor V Activity POC ABG pH POC ABG pCO2 POC ABG pO2 Sodium Potassium Chloride Carbon Dioxide BUN Creatinine Glucose POC Glucose 117 H Lactic Acid Calcium Phosphorus Magnesium Direct Bilirubin AST ALT Alkaline Phosphatase Lactate Dehydrogenase Troponin T C-Reactive Protein Total Protein Albumin Prealbumin Triglycerides Cholesterol LDL Cholesterol Direct HDL Cholesterol Urine pH Urine WBC (Auto) Urine Creatinine Urine Total Protein Vancomycin Trough Rheumatoid Factor Complement C4 Miscellaneous Test Flexitest 1 H Crossmatch 10/20/16 10/20/16 10/21/16 18:36 23:39 04:00 WBC RBC Hgb Hct MCV MCH MCHC RDW Plt Count Lymph % (Auto) [place] % (Auto) Lymph # [place] # Baso # Seg Neutrophils % Seg Neuts % (Manual) Lymphocytes % (Manual) Monocytes % (Manual) Eosinophils % (Manual) Basophils % (Manual) Nucleated RBC % Seg Neutrophils # Seg Neutrophils # Man Lymphocytes # (Manual) Monocytes # (Manual) Eosinophils # (Manual) PT INR Fibrinogen dRVVT Confirm Interp Factor V Activity POC ABG pH POC ABG pCO2 POC ABG pO2 Sodium Potassium 5.4 H D Chloride Carbon Dioxide 15 L BUN 110 H Creatinine 3.0 H Glucose POC Glucose 127 H 114 H Lactic Acid Calcium Phosphorus Magnesium Direct Bilirubin AST ALT Alkaline Phosphatase Lactate Dehydrogenase Troponin T C-Reactive Protein Total Protein Albumin Prealbumin Triglycerides Cholesterol LDL Cholesterol Direct HDL Cholesterol Urine pH Urine WBC (Auto) Urine Creatinine Urine Total Protein Vancomycin Trough Rheumatoid Factor Complement C4 Miscellaneous Test Crossmatch 10/21/16 10/21/16 10/22/16 05:54 23:46 05:18 WBC RBC Hgb Hct MCV MCH MCHC RDW Plt Count Lymph % (Auto) [place] % (Auto) Lymph # [place] # Baso # Seg Neutrophils % Seg Neuts % (Manual) Lymphocytes % (Manual) Monocytes % (Manual) Eosinophils % (Manual) Basophils % (Manual) Nucleated RBC % Seg Neutrophils # Seg Neutrophils # Man Lymphocytes # (Manual) Monocytes # (Manual) Eosinophils # (Manual) PT INR Fibrinogen dRVVT Confirm Interp Factor V Activity POC ABG pH POC ABG pCO2 POC ABG pO2 Sodium Potassium Chloride Carbon Dioxide BUN Creatinine Glucose POC Glucose 119 H 108 H 109 H Lactic Acid Calcium Phosphorus Magnesium Direct Bilirubin AST ALT Alkaline Phosphatase Lactate Dehydrogenase Troponin T C-Reactive Protein Total Protein Albumin Prealbumin Triglycerides Cholesterol LDL Cholesterol Direct HDL Cholesterol Urine pH Urine WBC (Auto) Urine Creatinine Urine Total Protein Vancomycin Trough Rheumatoid Factor Complement C4 Miscellaneous Test Crossmatch 10/22/16 10/22/16 10/22/16 06:40 06:40 06:40 WBC 14.0 H RBC 2.03 L Hgb 7.0 L Hct 20.5 L MCV 98 H MCH 34 H MCHC 35 H RDW 17.8 H Plt Count Lymph % (Auto) [place] % (Auto) 9.9 H Lymph # [place] # 1.4 H Baso # 0.2 H Seg Neutrophils % 72.0 H Seg Neuts % (Manual) Lymphocytes % (Manual) Monocytes % (Manual) Eosinophils % (Manual) Basophils % (Manual) Nucleated RBC % Seg Neutrophils # 10.0 H Seg Neutrophils # Man Lymphocytes # (Manual) Monocytes # (Manual) Eosinophils # (Manual) PT INR Fibrinogen dRVVT Confirm Interp Factor V Activity POC ABG pH POC ABG pCO2 POC ABG pO2 Sodium 130 L D Potassium Chloride 92.4 L Carbon Dioxide 20 L BUN 50 H Creatinine 1.6 H Glucose 589 H* POC Glucose Lactic Acid Calcium 7.8 L D Phosphorus Magnesium 1.60 L Direct Bilirubin AST ALT Alkaline Phosphatase Lactate Dehydrogenase Troponin T C-Reactive Protein Total Protein Albumin Prealbumin Triglycerides Cholesterol LDL Cholesterol Direct HDL Cholesterol Urine pH Urine WBC (Auto) Urine Creatinine Urine Total Protein Vancomycin Trough Rheumatoid Factor Complement C4 Miscellaneous Test Crossmatch 10/22/16 10/22/16 10/22/16 11:39 16:44 23:36 WBC RBC Hgb Hct MCV MCH MCHC RDW Plt Count Lymph % (Auto) [place] % (Auto) Lymph # [place] # Baso # Seg Neutrophils % Seg Neuts % (Manual) Lymphocytes % (Manual) Monocytes % (Manual) Eosinophils % (Manual) Basophils % (Manual) Nucleated RBC % Seg Neutrophils # Seg Neutrophils # Man Lymphocytes # (Manual) Monocytes # (Manual) Eosinophils # (Manual) PT INR Fibrinogen dRVVT Confirm Interp Factor V Activity POC ABG pH POC ABG pCO2 POC ABG pO2 Sodium Potassium Chloride Carbon Dioxide BUN Creatinine Glucose POC Glucose 142 H 163 H 123 H Lactic Acid Calcium Phosphorus Magnesium Direct Bilirubin AST ALT Alkaline Phosphatase Lactate Dehydrogenase Troponin T C-Reactive Protein Total Protein Albumin Prealbumin Triglycerides Cholesterol LDL Cholesterol Direct HDL Cholesterol Urine pH Urine WBC (Auto) Urine Creatinine Urine Total Protein Vancomycin Trough Rheumatoid Factor Complement C4 Miscellaneous Test Crossmatch 10/23/16 10/23/16 10/23/16 04:58 06:00 12:12 WBC RBC Hgb Hct MCV MCH MCHC RDW Plt Count Lymph % (Auto) [place] % (Auto) Lymph # [place] # Baso # Seg Neutrophils % Seg Neuts % (Manual) Lymphocytes % (Manual) Monocytes % (Manual) Eosinophils % (Manual) Basophils % (Manual) Nucleated RBC % Seg Neutrophils # Seg Neutrophils # Man Lymphocytes # (Manual) Monocytes # (Manual) Eosinophils # (Manual) PT INR Fibrinogen dRVVT Confirm Interp Factor V Activity POC ABG pH POC ABG pCO2 POC ABG pO2 Sodium 133 L Potassium 3.5 L Chloride 96.1 L Carbon Dioxide 18 L BUN 76 H Creatinine 2.1 H Glucose POC Glucose 133 H 138 H Lactic Acid Calcium 8.3 L Phosphorus Magnesium Direct Bilirubin AST ALT Alkaline Phosphatase Lactate Dehydrogenase Troponin T C-Reactive Protein Total Protein Albumin Prealbumin Triglycerides Cholesterol LDL Cholesterol Direct HDL Cholesterol Urine pH Urine WBC (Auto) Urine Creatinine Urine Total Protein Vancomycin Trough Rheumatoid Factor Complement C4 Miscellaneous Test Crossmatch 10/23/16 10/23/16 10/24/16 16:53 23:37 04:00 WBC RBC Hgb Hct MCV MCH MCHC RDW Plt Count Lymph % (Auto) [place] % (Auto) Lymph # [place] # Baso # Seg Neutrophils % Seg Neuts % (Manual) Lymphocytes % (Manual) Monocytes % (Manual) Eosinophils % (Manual) Basophils % (Manual) Nucleated RBC % Seg Neutrophils # Seg Neutrophils # Man Lymphocytes # (Manual) Monocytes # (Manual) Eosinophils # (Manual) PT INR Fibrinogen dRVVT Confirm Interp Factor V Activity POC ABG pH POC ABG pCO2 POC ABG pO2 Sodium 131 L Potassium Chloride 94.5 L Carbon Dioxide 19 L BUN 97 H Creatinine 2.6 H Glucose 110 H POC Glucose 125 H 123 H Lactic Acid Calcium 8.3 L Phosphorus Magnesium Direct Bilirubin AST ALT Alkaline Phosphatase Lactate Dehydrogenase Troponin T C-Reactive Protein Total Protein Albumin Prealbumin Triglycerides Cholesterol LDL Cholesterol Direct HDL Cholesterol Urine pH Urine WBC (Auto) Urine Creatinine Urine Total Protein Vancomycin Trough Rheumatoid Factor Complement C4 Miscellaneous Test Crossmatch 10/24/16 10/24/16 10/24/16 07:49 11:39 17:52 WBC RBC Hgb 6.0 L Hct 19.7 L* MCV MCH MCHC RDW Plt Count Lymph % (Auto) [place] % (Auto) Lymph # [place] # Baso # Seg Neutrophils % Seg Neuts % (Manual) Lymphocytes % (Manual) Monocytes % (Manual) Eosinophils % (Manual) Basophils % (Manual) Nucleated RBC % Seg Neutrophils # Seg Neutrophils # Man Lymphocytes # (Manual) Monocytes # (Manual) Eosinophils # (Manual) PT INR Fibrinogen dRVVT Confirm Interp Factor V Activity POC ABG pH POC ABG pCO2 POC ABG pO2 Sodium Potassium Chloride Carbon Dioxide BUN Creatinine Glucose POC Glucose 106 H 158 H Lactic Acid Calcium Phosphorus Magnesium Direct Bilirubin AST ALT Alkaline Phosphatase Lactate Dehydrogenase Troponin T C-Reactive Protein Total Protein Albumin Prealbumin Triglycerides Cholesterol LDL Cholesterol Direct HDL Cholesterol Urine pH Urine WBC (Auto) Urine Creatinine Urine Total Protein Vancomycin Trough Rheumatoid Factor Complement C4 Miscellaneous Test Crossmatch 10/24/16 10/24/16 10/24/16 20:00 22:27 Unknown WBC RBC Hgb 9.4 L D Hct 27.5 L D MCV MCH MCHC RDW Plt Count Lymph % (Auto) [place] % (Auto) Lymph # [place] # Baso # Seg Neutrophils % Seg Neuts % (Manual) Lymphocytes % (Manual) Monocytes % (Manual) Eosinophils % (Manual) Basophils % (Manual) Nucleated RBC % Seg Neutrophils # Seg Neutrophils # Man Lymphocytes # (Manual) Monocytes # (Manual) Eosinophils # (Manual) PT INR Fibrinogen dRVVT Confirm Interp Factor V Activity POC ABG pH POC ABG pCO2 POC ABG pO2 Sodium Potassium Chloride Carbon Dioxide BUN Creatinine Glucose POC Glucose 125 H Lactic Acid Calcium Phosphorus Magnesium Direct Bilirubin AST ALT Alkaline Phosphatase Lactate Dehydrogenase Troponin T C-Reactive Protein Total Protein Albumin Prealbumin Triglycerides Cholesterol LDL Cholesterol Direct HDL Cholesterol Urine pH Urine WBC (Auto) Urine Creatinine Urine Total Protein Vancomycin Trough Rheumatoid Factor Complement C4 Miscellaneous Test Crossmatch See Detail 10/25/16 10/25/16 10/25/16 04:00 04:00 04:00 WBC 14.2 H RBC 2.98 L Hgb 9.0 L Hct 26.2 L MCV MCH MCHC RDW 16.6 H Plt Count Lymph % (Auto) [place] % (Auto) 10.7 H Lymph # [place] # 1.5 H Baso # Seg Neutrophils % 73.6 H Seg Neuts % (Manual) Lymphocytes % (Manual) Monocytes % (Manual) Eosinophils % (Manual) Basophils % (Manual) Nucleated RBC % Seg Neutrophils # 10.5 H Seg Neutrophils # Man Lymphocytes # (Manual) Monocytes # (Manual) Eosinophils # (Manual) PT INR Fibrinogen dRVVT Confirm Interp Factor V Activity POC ABG pH POC ABG pCO2 POC ABG pO2 Sodium 132 L Potassium Chloride 94.7 L Carbon Dioxide BUN 51 H Creatinine 1.6 H Glucose 130 H POC Glucose Lactic Acid Calcium 8.3 L Phosphorus 1.60 L D Magnesium Direct Bilirubin AST ALT Alkaline Phosphatase Lactate Dehydrogenase Troponin T C-Reactive Protein Total Protein Albumin Prealbumin Triglycerides Cholesterol LDL Cholesterol Direct HDL Cholesterol Urine pH Urine WBC (Auto) Urine Creatinine Urine Total Protein Vancomycin Trough Rheumatoid Factor Complement C4 Miscellaneous Test Crossmatch 10/25/16 10/25/16 10/25/16 04:32 11:48 17:22 WBC RBC Hgb Hct MCV MCH MCHC RDW Plt Count Lymph % (Auto) [place] % (Auto) Lymph # [place] # Baso # Seg Neutrophils % Seg Neuts % (Manual) Lymphocytes % (Manual) Monocytes % (Manual) Eosinophils % (Manual) Basophils % (Manual) Nucleated RBC % Seg Neutrophils # Seg Neutrophils # Man Lymphocytes # (Manual) Monocytes # (Manual) Eosinophils # (Manual) PT INR Fibrinogen dRVVT Confirm Interp Factor V Activity POC ABG pH POC ABG pCO2 POC ABG pO2 Sodium Potassium Chloride Carbon Dioxide BUN Creatinine Glucose POC Glucose 124 H 171 H 120 H Lactic Acid Calcium Phosphorus Magnesium Direct Bilirubin AST ALT Alkaline Phosphatase Lactate Dehydrogenase Troponin T C-Reactive Protein Total Protein Albumin Prealbumin Triglycerides Cholesterol LDL Cholesterol Direct HDL Cholesterol Urine pH Urine WBC (Auto) Urine Creatinine Urine Total Protein Vancomycin Trough Rheumatoid Factor Complement C4 Miscellaneous Test Crossmatch 10/26/16 10/26/16 10/26/16 04:54 07:06 07:06 WBC 16.9 H RBC 3.06 L Hgb 9.1 L Hct 26.9 L MCV MCH MCHC RDW 16.9 H Plt Count Lymph % (Auto) [place] % (Auto) Lymph # [place] # Baso # Seg Neutrophils % Seg Neuts % (Manual) 71.0 H Lymphocytes % (Manual) 5.0 L Monocytes % (Manual) 12.0 H Eosinophils % (Manual) Basophils % (Manual) Nucleated RBC % Seg Neutrophils # Seg Neutrophils # Man 12.0 H Lymphocytes # (Manual) 0.8 L Monocytes # (Manual) 2.0 H Eosinophils # (Manual) PT INR Fibrinogen dRVVT Confirm Interp Factor V Activity POC ABG pH POC ABG pCO2 POC ABG pO2 Sodium 135 L Potassium Chloride 97.1 L Carbon Dioxide BUN 73 H Creatinine 2.2 H Glucose 117 H POC Glucose 123 H Lactic Acid Calcium Phosphorus 1.70 L Magnesium Direct Bilirubin AST ALT Alkaline Phosphatase Lactate Dehydrogenase Troponin T C-Reactive Protein Total Protein Albumin Prealbumin Triglycerides Cholesterol LDL Cholesterol Direct HDL Cholesterol Urine pH Urine WBC (Auto) Urine Creatinine Urine Total Protein Vancomycin Trough Rheumatoid Factor Complement C4 Miscellaneous Test Crossmatch 10/26/16 10/26/16 10/26/16 12:12 17:29 23:42 WBC RBC Hgb Hct MCV MCH MCHC RDW Plt Count Lymph % (Auto) [place] % (Auto) Lymph # [place] # Baso # Seg Neutrophils % Seg Neuts % (Manual) Lymphocytes % (Manual) Monocytes % (Manual) Eosinophils % (Manual) Basophils % (Manual) Nucleated RBC % Seg Neutrophils # Seg Neutrophils # Man Lymphocytes # (Manual) Monocytes # (Manual) Eosinophils # (Manual) PT INR Fibrinogen dRVVT Confirm Interp Factor V Activity POC ABG pH POC ABG pCO2 POC ABG pO2 Sodium Potassium Chloride Carbon Dioxide BUN Creatinine Glucose POC Glucose 126 H 161 H 118 H Lactic Acid Calcium Phosphorus Magnesium Direct Bilirubin AST ALT Alkaline Phosphatase Lactate Dehydrogenase Troponin T C-Reactive Protein Total Protein Albumin Prealbumin Triglycerides Cholesterol LDL Cholesterol Direct HDL Cholesterol Urine pH Urine WBC (Auto) Urine Creatinine Urine Total Protein Vancomycin Trough Rheumatoid Factor Complement C4 Miscellaneous Test Crossmatch 10/27/16 10/27/16 10/27/16 05:03 06:30 06:30 WBC 13.9 H RBC 3.09 L Hgb 9.2 L Hct 27.5 L MCV MCH MCHC RDW 17.0 H Plt Count Lymph % (Auto) [place] % (Auto) Lymph # [place] # Baso # Seg Neutrophils % Seg Neuts % (Manual) 78.0 H Lymphocytes % (Manual) Monocytes % (Manual) Eosinophils % (Manual) Basophils % (Manual) Nucleated RBC % 2.0 H Seg Neutrophils # Seg Neutrophils # Man 10.8 H Lymphocytes # (Manual) Monocytes # (Manual) 1.0 H Eosinophils # (Manual) PT INR Fibrinogen dRVVT Confirm Interp Factor V Activity POC ABG pH POC ABG pCO2 POC ABG pO2 Sodium Potassium Chloride Carbon Dioxide BUN 40 H Creatinine 1.5 H Glucose 135 H POC Glucose 107 H Lactic Acid Calcium 8.3 L Phosphorus 1.30 L D Magnesium Direct Bilirubin AST ALT Alkaline Phosphatase Lactate Dehydrogenase Troponin T C-Reactive Protein Total Protein Albumin Prealbumin Triglycerides Cholesterol LDL Cholesterol Direct HDL Cholesterol Urine pH Urine WBC (Auto) Urine Creatinine Urine Total Protein Vancomycin Trough Rheumatoid Factor Complement C4 Miscellaneous Test Crossmatch 10/27/16 10/27/16 10/27/16 13:27 18:07 23:40 WBC RBC Hgb Hct MCV MCH MCHC RDW Plt Count Lymph % (Auto) [place] % (Auto) Lymph # [place] # Baso # Seg Neutrophils % Seg Neuts % (Manual) Lymphocytes % (Manual) Monocytes % (Manual) Eosinophils % (Manual) Basophils % (Manual) Nucleated RBC % Seg Neutrophils # Seg Neutrophils # Man Lymphocytes # (Manual) Monocytes # (Manual) Eosinophils # (Manual) PT INR Fibrinogen dRVVT Confirm Interp Factor V Activity POC ABG pH POC ABG pCO2 POC ABG pO2 Sodium Potassium Chloride Carbon Dioxide BUN Creatinine Glucose POC Glucose 117 H 121 H 118 H Lactic Acid Calcium Phosphorus Magnesium Direct Bilirubin AST ALT Alkaline Phosphatase Lactate Dehydrogenase Troponin T C-Reactive Protein Total Protein Albumin Prealbumin Triglycerides Cholesterol LDL Cholesterol Direct HDL Cholesterol Urine pH Urine WBC (Auto) Urine Creatinine Urine Total Protein Vancomycin Trough Rheumatoid Factor Complement C4 Miscellaneous Test Crossmatch 10/28/16 10/28/16 10/28/16 05:48 06:45 06:45 WBC 14.7 H RBC 3.05 L Hgb 9.0 L Hct 26.9 L MCV MCH MCHC RDW 16.8 H Plt Count Lymph % (Auto) 8.2 L [place] % (Auto) 8.4 H Lymph # [place] # 1.2 H Baso # Seg Neutrophils % 81.9 H Seg Neuts % (Manual) Lymphocytes % (Manual) Monocytes % (Manual) Eosinophils % (Manual) Basophils % (Manual) Nucleated RBC % Seg Neutrophils # 12.1 H Seg Neutrophils # Man Lymphocytes # (Manual) Monocytes # (Manual) Eosinophils # (Manual) PT INR Fibrinogen dRVVT Confirm Interp Factor V Activity POC ABG pH POC ABG pCO2 POC ABG pO2 Sodium Potassium Chloride Carbon Dioxide BUN 60 H Creatinine 1.9 H Glucose 120 H POC Glucose 114 H Lactic Acid Calcium Phosphorus Magnesium Direct Bilirubin AST ALT Alkaline Phosphatase Lactate Dehydrogenase Troponin T C-Reactive Protein Total Protein Albumin Prealbumin Triglycerides Cholesterol LDL Cholesterol Direct HDL Cholesterol Urine pH Urine WBC (Auto) Urine Creatinine Urine Total Protein Vancomycin Trough Rheumatoid Factor Complement C4 Miscellaneous Test Crossmatch 10/28/16 10/28/16 10/29/16 17:08 23:50 05:10 WBC RBC Hgb Hct MCV MCH MCHC RDW Plt Count Lymph % (Auto) [place] % (Auto) Lymph # [place] # Baso # Seg Neutrophils % Seg Neuts % (Manual) Lymphocytes % (Manual) Monocytes % (Manual) Eosinophils % (Manual) Basophils % (Manual) Nucleated RBC % Seg Neutrophils # Seg Neutrophils # Man Lymphocytes # (Manual) Monocytes # (Manual) Eosinophils # (Manual) PT INR Fibrinogen dRVVT Confirm Interp Factor V Activity POC ABG pH POC ABG pCO2 POC ABG pO2 Sodium Potassium Chloride Carbon Dioxide BUN Creatinine Glucose POC Glucose 109 H 110 H 124 H Lactic Acid Calcium Phosphorus Magnesium Direct Bilirubin AST ALT Alkaline Phosphatase Lactate Dehydrogenase Troponin T C-Reactive Protein Total Protein Albumin Prealbumin Triglycerides Cholesterol LDL Cholesterol Direct HDL Cholesterol Urine pH Urine WBC (Auto) Urine Creatinine Urine Total Protein Vancomycin Trough Rheumatoid Factor Complement C4 Miscellaneous Test Crossmatch 10/29/16 10/29/16 10/29/16 07:45 07:45 12:19 WBC 14.7 H RBC 3.15 L Hgb 9.3 L Hct 28.9 L MCV MCH MCHC RDW 17.0 H Plt Count Lymph % (Auto) 11.9 L [place] % (Auto) 8.6 H Lymph # [place] # 1.3 H Baso # Seg Neutrophils % 78.1 H Seg Neuts % (Manual) Lymphocytes % (Manual) Monocytes % (Manual) Eosinophils % (Manual) Basophils % (Manual) Nucleated RBC % Seg Neutrophils # 11.4 H Seg Neutrophils # Man Lymphocytes # (Manual) Monocytes # (Manual) Eosinophils # (Manual) PT INR Fibrinogen dRVVT Confirm Interp Factor V Activity POC ABG pH POC ABG pCO2 POC ABG pO2 Sodium Potassium 5.1 H Chloride Carbon Dioxide 19 L BUN 78 H Creatinine 2.2 H Glucose 116 H POC Glucose 118 H Lactic Acid Calcium Phosphorus Magnesium Direct Bilirubin AST ALT Alkaline Phosphatase Lactate Dehydrogenase Troponin T C-Reactive Protein Total Protein Albumin Prealbumin Triglycerides Cholesterol LDL Cholesterol Direct HDL Cholesterol Urine pH Urine WBC (Auto) Urine Creatinine Urine Total Protein Vancomycin Trough Rheumatoid Factor Complement C4 Miscellaneous Test Crossmatch 10/29/16 10/30/1610/30/17 17:49 01:52 03:28 WBC RBC Hgb Hct MCV MCH MCHC RDW Plt Count Lymph % (Auto) [place] % (Auto) Lymph # [place] # Baso # Seg Neutrophils % Seg Neuts % (Manual) Lymphocytes % (Manual) Monocytes % (Manual) Eosinophils % (Manual) Basophils % (Manual) Nucleated RBC % Seg Neutrophils # Seg Neutrophils # Man Lymphocytes # (Manual) Monocytes # (Manual) Eosinophils # (Manual) PT INR Fibrinogen dRVVT Confirm Interp Factor V Activity POC ABG pH POC ABG pCO2 POC ABG pO2 Sodium Potassium 5.4 H Chloride 97.5 L Carbon Dioxide 19 L BUN 90 H Creatinine 2.5 H Glucose POC Glucose 120 H 129 H Lactic Acid Calcium Phosphorus 5.20 H Magnesium Direct Bilirubin AST ALT Alkaline Phosphatase Lactate Dehydrogenase Troponin T C-Reactive Protein Total Protein Albumin Prealbumin Triglycerides Cholesterol LDL Cholesterol Direct HDL Cholesterol Urine pH Urine WBC (Auto) Urine Creatinine Urine Total Protein Vancomycin Trough Rheumatoid Factor Complement C4 Miscellaneous Test Crossmatch 10/30/16 10/30/16 10/30/16 03:28 08:19 08:19 WBC 11.6 H 15.9 H RBC 2.75 L 2.82 L Hgb 7.9 L 8.3 L Hct 24.2 L 25.2 L MCV MCH MCHC RDW 16.7 H 17.2 H Plt Count Lymph % (Auto) [place] % (Auto) 9.8 H Lymph # [place] # 1.1 H Baso # Seg Neutrophils % 74.2 H Seg Neuts % (Manual) Lymphocytes % (Manual) Monocytes % (Manual) Eosinophils % (Manual) Basophils % (Manual) Nucleated RBC % Seg Neutrophils # 8.6 H Seg Neutrophils # Man Lymphocytes # (Manual) Monocytes # (Manual) Eosinophils # (Manual) PT INR Fibrinogen dRVVT Confirm Interp Factor V Activity POC ABG pH POC ABG pCO2 POC ABG pO2 Sodium Potassium 5.3 H Chloride 97.4 L Carbon Dioxide 19 L BUN 93 H Creatinine 2.6 H Glucose POC Glucose Lactic Acid Calcium Phosphorus Magnesium Direct Bilirubin AST ALT Alkaline Phosphatase Lactate Dehydrogenase Troponin T C-Reactive Protein Total Protein Albumin Prealbumin Triglycerides Cholesterol LDL Cholesterol Direct HDL Cholesterol Urine pH Urine WBC (Auto) Urine Creatinine Urine Total Protein Vancomycin Trough Rheumatoid Factor Complement C4 Miscellaneous Test Crossmatch 10/30/16 10/30/16 10/31/16 17:11 23:56 00:40 WBC RBC Hgb Hct MCV MCH MCHC RDW Plt Count Lymph % (Auto) [place] % (Auto) Lymph # [place] # Baso # Seg Neutrophils % Seg Neuts % (Manual) Lymphocytes % (Manual) Monocytes % (Manual) Eosinophils % (Manual) Basophils % (Manual) Nucleated RBC % Seg Neutrophils # Seg Neutrophils # Man Lymphocytes # (Manual) Monocytes # (Manual) Eosinophils # (Manual) PT INR Fibrinogen dRVVT Confirm Interp Factor V Activity POC ABG pH POC ABG pCO2 POC ABG pO2 Sodium Potassium Chloride Carbon Dioxide BUN Creatinine Glucose POC Glucose 106 H 117 H 120 H Lactic Acid Calcium Phosphorus Magnesium Direct Bilirubin AST ALT Alkaline Phosphatase Lactate Dehydrogenase Troponin T C-Reactive Protein Total Protein Albumin Prealbumin Triglycerides Cholesterol LDL Cholesterol Direct HDL Cholesterol Urine pH Urine WBC (Auto) Urine Creatinine Urine Total Protein Vancomycin Trough Rheumatoid Factor Complement C4 Miscellaneous Test Crossmatch 10/31/16 10/31/16 10/31/16 05:43 07:15 07:15 WBC 12.1 H RBC 2.63 L Hgb 7.7 L Hct 23.3 L MCV MCH MCHC RDW 16.7 H Plt Count Lymph % (Auto) 11.7 L [place] % (Auto) 7.7 H Lymph # [place] # 0.9 H Baso # Seg Neutrophils % 78.0 H Seg Neuts % (Manual) Lymphocytes % (Manual) Monocytes % (Manual) Eosinophils % (Manual) Basophils % (Manual) Nucleated RBC % Seg Neutrophils # 9.4 H Seg Neutrophils # Man Lymphocytes # (Manual) Monocytes # (Manual) Eosinophils # (Manual) PT INR Fibrinogen dRVVT Confirm Interp Factor V Activity POC ABG pH POC ABG pCO2 POC ABG pO2 Sodium Potassium Chloride 96.4 L Carbon Dioxide 21 L BUN 99 H Creatinine 2.6 H Glucose 144 H POC Glucose 125 H Lactic Acid Calcium Phosphorus 4.80 H Magnesium Direct Bilirubin AST ALT Alkaline Phosphatase Lactate Dehydrogenase Troponin T C-Reactive Protein Total Protein Albumin Prealbumin Triglycerides Cholesterol LDL Cholesterol Direct HDL Cholesterol Urine pH Urine WBC (Auto) Urine Creatinine Urine Total Protein Vancomycin Trough Rheumatoid Factor Complement C4 Miscellaneous Test Crossmatch 10/31/16 10/31/16 11/01/16 11:46 18:34 00:20 WBC RBC Hgb Hct MCV MCH MCHC RDW Plt Count Lymph % (Auto) [place] % (Auto) Lymph # [place] # Baso # Seg Neutrophils % Seg Neuts % (Manual) Lymphocytes % (Manual) Monocytes % (Manual) Eosinophils % (Manual) Basophils % (Manual) Nucleated RBC % Seg Neutrophils # Seg Neutrophils # Man Lymphocytes # (Manual) Monocytes # (Manual) Eosinophils # (Manual) PT INR Fibrinogen dRVVT Confirm Interp Factor V Activity POC ABG pH POC ABG pCO2 POC ABG pO2 Sodium Potassium Chloride Carbon Dioxide BUN Creatinine Glucose POC Glucose 159 H 140 H 132 H Lactic Acid Calcium Phosphorus Magnesium Direct Bilirubin AST ALT Alkaline Phosphatase Lactate Dehydrogenase Troponin T C-Reactive Protein Total Protein Albumin Prealbumin Triglycerides Cholesterol LDL Cholesterol Direct HDL Cholesterol Urine pH Urine WBC (Auto) Urine Creatinine Urine Total Protein Vancomycin Trough Rheumatoid Factor Complement C4 Miscellaneous Test Crossmatch 11/01/16 11/01/16 11/01/16 04:55 04:55 06:11 WBC 11.2 H RBC 2.68 L Hgb 7.5 L Hct 23.7 L MCV MCH MCHC RDW 16.1 H Plt Count Lymph % (Auto) [place] % (Auto) 9.8 H Lymph # [place] # 1.1 H Baso # Seg Neutrophils % 70.8 H Seg Neuts % (Manual) Lymphocytes % (Manual) Monocytes % (Manual) Eosinophils % (Manual) Basophils % (Manual) Nucleated RBC % Seg Neutrophils # 7.9 H Seg Neutrophils # Man Lymphocytes # (Manual) Monocytes # (Manual) Eosinophils # (Manual) PT INR Fibrinogen dRVVT Confirm Interp Factor V Activity POC ABG pH POC ABG pCO2 POC ABG pO2 Sodium Potassium 3.3 L D Chloride Carbon Dioxide BUN 61 H Creatinine 1.9 H Glucose 114 H POC Glucose 115 H Lactic Acid Calcium Phosphorus 1.80 L D Magnesium Direct Bilirubin AST ALT Alkaline Phosphatase Lactate Dehydrogenase Troponin T C-Reactive Protein Total Protein Albumin Prealbumin Triglycerides Cholesterol LDL Cholesterol Direct HDL Cholesterol Urine pH Urine WBC (Auto) Urine Creatinine Urine Total Protein Vancomycin Trough Rheumatoid Factor Complement C4 Miscellaneous Test Crossmatch 11/01/16 11/01/16 11/01/16 12:29 18:23 23:58 WBC RBC Hgb Hct MCV MCH MCHC RDW Plt Count Lymph % (Auto) [place] % (Auto) Lymph # [place] # Baso # Seg Neutrophils % Seg Neuts % (Manual) Lymphocytes % (Manual) Monocytes % (Manual) Eosinophils % (Manual) Basophils % (Manual) Nucleated RBC % Seg Neutrophils # Seg Neutrophils # Man Lymphocytes # (Manual) Monocytes # (Manual) Eosinophils # (Manual) PT INR Fibrinogen dRVVT Confirm Interp Factor V Activity POC ABG pH POC ABG pCO2 POC ABG pO2 Sodium Potassium Chloride Carbon Dioxide BUN Creatinine Glucose POC Glucose 142 H 143 H 128 H Lactic Acid Calcium Phosphorus Magnesium Direct Bilirubin AST ALT Alkaline Phosphatase Lactate Dehydrogenase Troponin T C-Reactive Protein Total Protein Albumin Prealbumin Triglycerides Cholesterol LDL Cholesterol Direct HDL Cholesterol Urine pH Urine WBC (Auto) Urine Creatinine Urine Total Protein Vancomycin Trough Rheumatoid Factor Complement C4 Miscellaneous Test Crossmatch 11/02/16 11/02/16 11/02/16 04:16 05:29 11:58 WBC RBC Hgb Hct MCV MCH MCHC RDW Plt Count Lymph % (Auto) [place] % (Auto) Lymph # [place] # Baso # Seg Neutrophils % Seg Neuts % (Manual) Lymphocytes % (Manual) Monocytes % (Manual) Eosinophils % (Manual) Basophils % (Manual) Nucleated RBC % Seg Neutrophils # Seg Neutrophils # Man Lymphocytes # (Manual) Monocytes # (Manual) Eosinophils # (Manual) PT INR Fibrinogen dRVVT Confirm Interp Factor V Activity POC ABG pH POC ABG pCO2 POC ABG pO2 Sodium Potassium 3.1 L Chloride Carbon Dioxide BUN 73 H Creatinine 2.3 H Glucose 112 H POC Glucose 135 H 149 H Lactic Acid Calcium Phosphorus Magnesium Direct Bilirubin AST ALT Alkaline Phosphatase Lactate Dehydrogenase Troponin T C-Reactive Protein Total Protein Albumin Prealbumin Triglycerides Cholesterol LDL Cholesterol Direct HDL Cholesterol Urine pH Urine WBC (Auto) Urine Creatinine Urine Total Protein Vancomycin Trough Rheumatoid Factor Complement C4 Miscellaneous Test Crossmatch 11/02/16 11/02/16 11/03/16 17:42 22:54 06:00 WBC RBC Hgb Hct MCV MCH MCHC RDW Plt Count Lymph % (Auto) [place] % (Auto) Lymph # [place] # Baso # Seg Neutrophils % Seg Neuts % (Manual) Lymphocytes % (Manual) Monocytes % (Manual) Eosinophils % (Manual) Basophils % (Manual) Nucleated RBC % Seg Neutrophils # Seg Neutrophils # Man Lymphocytes # (Manual) Monocytes # (Manual) Eosinophils # (Manual) PT INR Fibrinogen dRVVT Confirm Interp Factor V Activity POC ABG pH POC ABG pCO2 POC ABG pO2 Sodium Potassium Chloride 96.7 L Carbon Dioxide BUN 41 H Creatinine 1.5 H Glucose 145 H POC Glucose 182 H 115 H Lactic Acid Calcium Phosphorus 1.60 L D Magnesium 1.50 L Direct Bilirubin AST ALT Alkaline Phosphatase Lactate Dehydrogenase Troponin T C-Reactive Protein Total Protein Albumin Prealbumin Triglycerides Cholesterol LDL Cholesterol Direct HDL Cholesterol Urine pH Urine WBC (Auto) Urine Creatinine Urine Total Protein Vancomycin Trough Rheumatoid Factor Complement C4 Miscellaneous Test Crossmatch 11/03/16 11/03/16 11/03/16 11:53 17:45 23:37 WBC RBC Hgb Hct MCV MCH MCHC RDW Plt Count Lymph % (Auto) [place] % (Auto) Lymph # [place] # Baso # Seg Neutrophils % Seg Neuts % (Manual) Lymphocytes % (Manual) Monocytes % (Manual) Eosinophils % (Manual) Basophils % (Manual) Nucleated RBC % Seg Neutrophils # Seg Neutrophils # Man Lymphocytes # (Manual) Monocytes # (Manual) Eosinophils # (Manual) PT INR Fibrinogen dRVVT Confirm Interp Factor V Activity POC ABG pH POC ABG pCO2 POC ABG pO2 Sodium Potassium Chloride Carbon Dioxide BUN Creatinine Glucose POC Glucose 131 H 134 H 113 H Lactic Acid Calcium Phosphorus Magnesium Direct Bilirubin AST ALT Alkaline Phosphatase Lactate Dehydrogenase Troponin T C-Reactive Protein Total Protein Albumin Prealbumin Triglycerides Cholesterol LDL Cholesterol Direct HDL Cholesterol Urine pH Urine WBC (Auto) Urine Creatinine Urine Total Protein Vancomycin Trough Rheumatoid Factor Complement C4 Miscellaneous Test Crossmatch 11/04/16 11/04/16 11/04/16 05:41 06:00 12:10 WBC RBC Hgb Hct MCV MCH MCHC RDW Plt Count Lymph % (Auto) [place] % (Auto) Lymph # [place] # Baso # Seg Neutrophils % Seg Neuts % (Manual) Lymphocytes % (Manual) Monocytes % (Manual) Eosinophils % (Manual) Basophils % (Manual) Nucleated RBC % Seg Neutrophils # Seg Neutrophils # Man Lymphocytes # (Manual) Monocytes # (Manual) Eosinophils # (Manual) PT INR Fibrinogen dRVVT Confirm Interp Factor V Activity POC ABG pH POC ABG pCO2 POC ABG pO2 Sodium Potassium Chloride 96.7 L Carbon Dioxide BUN 52 H Creatinine 1.9 H Glucose 126 H POC Glucose 137 H 191 H Lactic Acid Calcium Phosphorus Magnesium Direct Bilirubin AST ALT Alkaline Phosphatase Lactate Dehydrogenase Troponin T C-Reactive Protein Total Protein Albumin Prealbumin Triglycerides Cholesterol LDL Cholesterol Direct HDL Cholesterol Urine pH Urine WBC (Auto) Urine Creatinine Urine Total Protein Vancomycin Trough Rheumatoid Factor Complement C4 Miscellaneous Test Crossmatch 11/04/16 11/05/16 11/05/16 22:57 03:10 05:10 WBC RBC Hgb Hct MCV MCH MCHC RDW Plt Count Lymph % (Auto) [place] % (Auto) Lymph # [place] # Baso # Seg Neutrophils % Seg Neuts % (Manual) Lymphocytes % (Manual) Monocytes % (Manual) Eosinophils % (Manual) Basophils % (Manual) Nucleated RBC % Seg Neutrophils # Seg Neutrophils # Man Lymphocytes # (Manual) Monocytes # (Manual) Eosinophils # (Manual) PT INR Fibrinogen dRVVT Confirm Interp Factor V Activity POC ABG pH POC ABG pCO2 POC ABG pO2 Sodium 136 L Potassium Chloride 97.2 L Carbon Dioxide BUN 32 H Creatinine 1.3 H Glucose 123 H POC Glucose 125 H 108 H Lactic Acid Calcium 7.8 L Phosphorus Magnesium Direct Bilirubin AST ALT Alkaline Phosphatase Lactate Dehydrogenase Troponin T C-Reactive Protein Total Protein Albumin Prealbumin Triglycerides Cholesterol LDL Cholesterol Direct HDL Cholesterol Urine pH Urine WBC (Auto) Urine Creatinine Urine Total Protein Vancomycin Trough Rheumatoid Factor Complement C4 Miscellaneous Test Crossmatch 11/05/16 11/05/16 11/05/16 12:23 13:09 13:25 WBC RBC Hgb Hct MCV MCH MCHC RDW Plt Count Lymph % (Auto) [place] % (Auto) Lymph # [place] # Baso # Seg Neutrophils % Seg Neuts % (Manual) Lymphocytes % (Manual) Monocytes % (Manual) Eosinophils % (Manual) Basophils % (Manual) Nucleated RBC % Seg Neutrophils # Seg Neutrophils # Man Lymphocytes # (Manual) Monocytes # (Manual) Eosinophils # (Manual) PT INR Fibrinogen dRVVT Confirm Interp Factor V Activity POC ABG pH POC ABG pCO2 POC ABG pO2 Sodium Potassium Chloride Carbon Dioxide BUN Creatinine Glucose POC Glucose 124 H Lactic Acid Calcium Phosphorus Magnesium Direct Bilirubin AST ALT Alkaline Phosphatase Lactate Dehydrogenase Troponin T C-Reactive Protein 11.40 H Total Protein Albumin Prealbumin Triglycerides Cholesterol LDL Cholesterol Direct HDL Cholesterol Urine pH 9.0 H Urine WBC (Auto) Urine Creatinine Urine Total Protein Vancomycin Trough Rheumatoid Factor Complement C4 Miscellaneous Test Crossmatch 11/05/16 11/05/16 11/05/16 13:25 17:54 23:42 WBC RBC Hgb Hct MCV MCH MCHC RDW Plt Count Lymph % (Auto) [place] % (Auto) Lymph # [place] # Baso # Seg Neutrophils % Seg Neuts % (Manual) Lymphocytes % (Manual) Monocytes % (Manual) Eosinophils % (Manual) Basophils % (Manual) Nucleated RBC % Seg Neutrophils # Seg Neutrophils # Man Lymphocytes # (Manual) Monocytes # (Manual) Eosinophils # (Manual) PT INR Fibrinogen dRVVT Confirm Interp Factor V Activity POC ABG pH POC ABG pCO2 POC ABG pO2 Sodium Potassium Chloride Carbon Dioxide BUN Creatinine Glucose POC Glucose 114 H 134 H Lactic Acid Calcium Phosphorus Magnesium Direct Bilirubin AST ALT Alkaline Phosphatase Lactate Dehydrogenase Troponin T C-Reactive Protein Total Protein Albumin Prealbumin Triglycerides Cholesterol LDL Cholesterol Direct HDL Cholesterol Urine pH Urine WBC (Auto) Urine Creatinine Urine Total Protein Vancomycin Trough Rheumatoid Factor Complement C4 Miscellaneous Test Flexitest 1 H Crossmatch 11/06/16 11/06/16 11/06/16 04:56 06:25 06:25 WBC RBC 2.50 L Hgb 7.3 L Hct 22.5 L MCV MCH MCHC RDW 16.9 H Plt Count Lymph % (Auto) [place] % (Auto) 10.5 H Lymph # [place] # 1.1 H Baso # Seg Neutrophils % Seg Neuts % (Manual) Lymphocytes % (Manual) Monocytes % (Manual) Eosinophils % (Manual) Basophils % (Manual) Nucleated RBC % Seg Neutrophils # Seg Neutrophils # Man Lymphocytes # (Manual) Monocytes # (Manual) Eosinophils # (Manual) PT INR Fibrinogen dRVVT Confirm Interp Factor V Activity POC ABG pH POC ABG pCO2 POC ABG pO2 Sodium Potassium 5.1 H Chloride 95.9 L Carbon Dioxide BUN 52 H Creatinine 1.8 H Glucose 117 H POC Glucose 120 H Lactic Acid Calcium Phosphorus Magnesium Direct Bilirubin AST 103 H ALT 77 H Alkaline Phosphatase 285 H Lactate Dehydrogenase Troponin T C-Reactive Protein Total Protein 6.2 L Albumin 1.8 L Prealbumin 0.180 L Triglycerides Cholesterol LDL Cholesterol Direct HDL Cholesterol Urine pH Urine WBC (Auto) Urine Creatinine Urine Total Protein Vancomycin Trough Rheumatoid Factor Complement C4 Miscellaneous Test Crossmatch 11/06/16 11/06/16 11/06/16 11:56 17:14 23:52 WBC RBC Hgb Hct MCV MCH MCHC RDW Plt Count Lymph % (Auto) [place] % (Auto) Lymph # [place] # Baso # Seg Neutrophils % Seg Neuts % (Manual) Lymphocytes % (Manual) Monocytes % (Manual) Eosinophils % (Manual) Basophils % (Manual) Nucleated RBC % Seg Neutrophils # Seg Neutrophils # Man Lymphocytes # (Manual) Monocytes # (Manual) Eosinophils # (Manual) PT INR Fibrinogen dRVVT Confirm Interp Factor V Activity POC ABG pH POC ABG pCO2 POC ABG pO2 Sodium Potassium Chloride Carbon Dioxide BUN Creatinine Glucose POC Glucose 141 H 125 H 130 H Lactic Acid Calcium Phosphorus Magnesium Direct Bilirubin AST ALT Alkaline Phosphatase Lactate Dehydrogenase Troponin T C-Reactive Protein Total Protein Albumin Prealbumin Triglycerides Cholesterol LDL Cholesterol Direct HDL Cholesterol Urine pH Urine WBC (Auto) Urine Creatinine Urine Total Protein Vancomycin Trough Rheumatoid Factor Complement C4 Miscellaneous Test Crossmatch 11/07/16 11/07/16 11/07/16 06:30 06:30 09:37 WBC RBC 2.18 L Hgb 6.3 L Hct 19.7 L* MCV MCH MCHC RDW 16.8 H Plt Count Lymph % (Auto) [place] % (Auto) 10.0 H Lymph # [place] # 1.0 H Baso # Seg Neutrophils % Seg Neuts % (Manual) Lymphocytes % (Manual) Monocytes % (Manual) Eosinophils % (Manual) Basophils % (Manual) Nucleated RBC % Seg Neutrophils # Seg Neutrophils # Man Lymphocytes # (Manual) Monocytes # (Manual) Eosinophils # (Manual) PT INR Fibrinogen dRVVT Confirm Interp Factor V Activity POC ABG pH POC ABG pCO2 POC ABG pO2 Sodium 135 L Potassium Chloride 95.6 L Carbon Dioxide BUN 70 H Creatinine 2.0 H Glucose 126 H POC Glucose Lactic Acid Calcium Phosphorus Magnesium Direct Bilirubin AST ALT Alkaline Phosphatase Lactate Dehydrogenase Troponin T C-Reactive Protein Total Protein Albumin Prealbumin Triglycerides Cholesterol LDL Cholesterol Direct HDL Cholesterol Urine pH Urine WBC (Auto) Urine Creatinine Urine Total Protein Vancomycin Trough Rheumatoid Factor Complement C4 Miscellaneous Test Crossmatch See Detail 11/07/16 11/07/16 11/07/16 12:52 18:51 21:26 WBC RBC Hgb Hct MCV MCH MCHC RDW Plt Count Lymph % (Auto) [place] % (Auto) Lymph # [place] # Baso # Seg Neutrophils % Seg Neuts % (Manual) Lymphocytes % (Manual) Monocytes % (Manual) Eosinophils % (Manual) Basophils % (Manual) Nucleated RBC % Seg Neutrophils # Seg Neutrophils # Man Lymphocytes # (Manual) Monocytes # (Manual) Eosinophils # (Manual) PT INR Fibrinogen dRVVT Confirm Interp Factor V Activity POC ABG pH 7.523 H POC ABG pCO2 34.6 L POC ABG pO2 53 L Sodium Potassium Chloride Carbon Dioxide BUN Creatinine Glucose POC Glucose 142 H 155 H Lactic Acid Calcium Phosphorus Magnesium Direct Bilirubin AST ALT Alkaline Phosphatase Lactate Dehydrogenase Troponin T C-Reactive Protein Total Protein Albumin Prealbumin Triglycerides Cholesterol LDL Cholesterol Direct HDL Cholesterol Urine pH Urine WBC (Auto) Urine Creatinine Urine Total Protein Vancomycin Trough Rheumatoid Factor Complement C4 Miscellaneous Test Crossmatch 11/07/16 11/08/16 11/08/16 21:34 13:03 23:37 WBC RBC 2.63 L Hgb 7.7 L Hct 22.7 L MCV MCH MCHC RDW 17.0 H Plt Count Lymph % (Auto) [place] % (Auto) Lymph # [place] # Baso # Seg Neutrophils % Seg Neuts % (Manual) Lymphocytes % (Manual) Monocytes % (Manual) Eosinophils % (Manual) Basophils % (Manual) Nucleated RBC % Seg Neutrophils # Seg Neutrophils # Man Lymphocytes # (Manual) Monocytes # (Manual) Eosinophils # (Manual) PT INR Fibrinogen dRVVT Confirm Interp Factor V Activity POC ABG pH 7.478 H POC ABG pCO2 34.0 L POC ABG pO2 50 L Sodium Potassium Chloride Carbon Dioxide BUN Creatinine Glucose POC Glucose 113 H Lactic Acid Calcium Phosphorus Magnesium Direct Bilirubin AST ALT Alkaline Phosphatase Lactate Dehydrogenase Troponin T C-Reactive Protein Total Protein Albumin Prealbumin Triglycerides Cholesterol LDL Cholesterol Direct HDL Cholesterol Urine pH Urine WBC (Auto) Urine Creatinine Urine Total Protein Vancomycin Trough Rheumatoid Factor Complement C4 Miscellaneous Test Crossmatch 11/09/16 11/09/16 11/09/16 04:35 10:15 18:21 WBC RBC 2.68 L Hgb 7.8 L Hct 23.3 L MCV MCH MCHC RDW 17.0 H Plt Count Lymph % (Auto) [place] % (Auto) 12.1 H Lymph # [place] # 1.1 H Baso # Seg Neutrophils % Seg Neuts % (Manual) Lymphocytes % (Manual) Monocytes % (Manual) Eosinophils % (Manual) Basophils % (Manual) Nucleated RBC % Seg Neutrophils # Seg Neutrophils # Man Lymphocytes # (Manual) Monocytes # (Manual) Eosinophils # (Manual) PT INR Fibrinogen dRVVT Confirm Interp Factor V Activity POC ABG pH POC ABG pCO2 POC ABG pO2 Sodium Potassium Chloride Carbon Dioxide BUN 51 H Creatinine 1.8 H Glucose POC Glucose 60 L Lactic Acid Calcium 8.3 L Phosphorus Magnesium Direct Bilirubin AST ALT Alkaline Phosphatase Lactate Dehydrogenase Troponin T C-Reactive Protein Total Protein Albumin Prealbumin Triglycerides Cholesterol LDL Cholesterol Direct HDL Cholesterol Urine pH Urine WBC (Auto) Urine Creatinine Urine Total Protein Vancomycin Trough Rheumatoid Factor Complement C4 Miscellaneous Test Crossmatch 09/11/10/16 11/10/16 18:55 07:00 11:51 WBC RBC Hgb Hct MCV MCH MCHC RDW Plt Count Lymph % (Auto) [place] % (Auto) Lymph # [place] # Baso # Seg Neutrophils % Seg Neuts % (Manual) Lymphocytes % (Manual) Monocytes % (Manual) Eosinophils % (Manual) Basophils % (Manual) Nucleated RBC % Seg Neutrophils # Seg Neutrophils # Man Lymphocytes # (Manual) Monocytes # (Manual) Eosinophils # (Manual) PT INR Fibrinogen dRVVT Confirm Interp Factor V Activity POC ABG pH POC ABG pCO2 POC ABG pO2 Sodium Potassium 3.0 L D Chloride 97.4 L Carbon Dioxide BUN 28 H Creatinine 1.3 H Glucose POC Glucose 68 L 120 H Lactic Acid Calcium 7.8 L Phosphorus Magnesium Direct Bilirubin AST ALT Alkaline Phosphatase Lactate Dehydrogenase Troponin T C-Reactive Protein Total Protein Albumin Prealbumin Triglycerides Cholesterol LDL Cholesterol Direct HDL Cholesterol Urine pH Urine WBC (Auto) Urine Creatinine Urine Total Protein Vancomycin Trough Rheumatoid Factor Complement C4 Miscellaneous Test Crossmatch 11/11/16 11/11/16 11/11/16 06:59 06:59 06:59 WBC RBC 2.81 L Hgb 8.1 L Hct 24.4 L MCV MCH MCHC RDW 16.4 H Plt Count Lymph % (Auto) [place] % (Auto) 10.8 H Lymph # [place] # 1.0 H Baso # Seg Neutrophils % Seg Neuts % (Manual) Lymphocytes % (Manual) Monocytes % (Manual) Eosinophils % (Manual) Basophils % (Manual) Nucleated RBC % Seg Neutrophils # Seg Neutrophils # Man Lymphocytes # (Manual) Monocytes # (Manual) Eosinophils # (Manual) PT INR Fibrinogen dRVVT Confirm Interp Factor V Activity POC ABG pH POC ABG pCO2 POC ABG pO2 Sodium 136 L Potassium Chloride 96.1 L Carbon Dioxide BUN 37 H Creatinine 1.8 H Glucose POC Glucose Lactic Acid Calcium Phosphorus Magnesium Direct Bilirubin AST ALT Alkaline Phosphatase Lactate Dehydrogenase 196 H Troponin T C-Reactive Protein Total Protein 6.1 L Albumin Prealbumin Triglycerides Cholesterol LDL Cholesterol Direct HDL Cholesterol Urine pH Urine WBC (Auto) Urine Creatinine Urine Total Protein Vancomycin Trough Rheumatoid Factor Complement C4 Miscellaneous Test Crossmatch 11/11/16 11/12/16 11/12/16 09:50 04:00 04:00 WBC RBC Hgb 8.9 L Hct 27.2 L MCV MCH MCHC RDW Plt Count Lymph % (Auto) [place] % (Auto) Lymph # [place] # Baso # Seg Neutrophils % Seg Neuts % (Manual) Lymphocytes % (Manual) Monocytes % (Manual) Eosinophils % (Manual) Basophils % (Manual) Nucleated RBC % Seg Neutrophils # Seg Neutrophils # Man Lymphocytes # (Manual) Monocytes # (Manual) Eosinophils # (Manual) PT INR 1.18 H Fibrinogen dRVVT Confirm Interp Factor V Activity POC ABG pH POC ABG pCO2 POC ABG pO2 Sodium 133 L Potassium Chloride 94.8 L Carbon Dioxide 21 L BUN 42 H Creatinine 2.0 H Glucose POC Glucose Lactic Acid Calcium Phosphorus Magnesium Direct Bilirubin AST ALT Alkaline Phosphatase Lactate Dehydrogenase Troponin T C-Reactive Protein Total Protein Albumin Prealbumin Triglycerides Cholesterol LDL Cholesterol Direct HDL Cholesterol Urine pH Urine WBC (Auto) Urine Creatinine Urine Total Protein Vancomycin Trough Rheumatoid Factor Complement C4 Miscellaneous Test Crossmatch 11/12/16 11/13/16 11/13/16 23:55 05:53 11:43 WBC RBC Hgb Hct MCV MCH MCHC RDW Plt Count Lymph % (Auto) [place] % (Auto) Lymph # [place] # Baso # Seg Neutrophils % Seg Neuts % (Manual) Lymphocytes % (Manual) Monocytes % (Manual) Eosinophils % (Manual) Basophils % (Manual) Nucleated RBC % Seg Neutrophils # Seg Neutrophils # Man Lymphocytes # (Manual) Monocytes # (Manual) Eosinophils # (Manual) PT INR Fibrinogen dRVVT Confirm Interp Factor V Activity POC ABG pH POC ABG pCO2 POC ABG pO2 Sodium Potassium Chloride Carbon Dioxide BUN Creatinine Glucose POC Glucose 132 H 120 H 114 H Lactic Acid Calcium Phosphorus Magnesium Direct Bilirubin AST ALT Alkaline Phosphatase Lactate Dehydrogenase Troponin T C-Reactive Protein Total Protein Albumin Prealbumin Triglycerides Cholesterol LDL Cholesterol Direct HDL Cholesterol Urine pH Urine WBC (Auto) Urine Creatinine Urine Total Protein Vancomycin Trough Rheumatoid Factor Complement C4 Miscellaneous Test Crossmatch 11/13/16 11/13/16 11/13/16 17:09 23:41 Unknown WBC RBC Hgb Hct MCV MCH MCHC RDW Plt Count Lymph % (Auto) [place] % (Auto) Lymph # [place] # Baso # Seg Neutrophils % Seg Neuts % (Manual) Lymphocytes % (Manual) Monocytes % (Manual) Eosinophils % (Manual) Basophils % (Manual) Nucleated RBC % Seg Neutrophils # Seg Neutrophils # Man Lymphocytes # (Manual) Monocytes # (Manual) Eosinophils # (Manual) PT INR Fibrinogen dRVVT Confirm Interp Factor V Activity POC ABG pH POC ABG pCO2 POC ABG pO2 Sodium 135 L Potassium Chloride 95.2 L Carbon Dioxide BUN 52 H Creatinine 2.2 H Glucose POC Glucose 113 H 108 H Lactic Acid Calcium Phosphorus Magnesium Direct Bilirubin AST ALT Alkaline Phosphatase Lactate Dehydrogenase Troponin T C-Reactive Protein Total Protein Albumin Prealbumin Triglycerides Cholesterol LDL Cholesterol Direct HDL Cholesterol Urine pH Urine WBC (Auto) Urine Creatinine Urine Total Protein Vancomycin Trough Rheumatoid Factor Complement C4 Miscellaneous Test Crossmatch 11/15/16 11/15/16 11/15/16 00:37 03:30 03:30 WBC 11.2 H RBC 2.72 L Hgb 7.6 L Hct 23.4 L MCV MCH MCHC RDW 16.5 H Plt Count Lymph % (Auto) [place] % (Auto) Lymph # [place] # Baso # Seg Neutrophils % Seg Neuts % (Manual) Lymphocytes % (Manual) Monocytes % (Manual) Eosinophils % (Manual) Basophils % (Manual) Nucleated RBC % Seg Neutrophils # Seg Neutrophils # Man Lymphocytes # (Manual) Monocytes # (Manual) Eosinophils # (Manual) PT INR Fibrinogen dRVVT Confirm Interp Factor V Activity POC ABG pH POC ABG pCO2 POC ABG pO2 Sodium Potassium 3.4 L Chloride Carbon Dioxide BUN 25 H Creatinine 1.5 H Glucose 103 H POC Glucose 108 H Lactic Acid Calcium Phosphorus Magnesium Direct Bilirubin AST ALT Alkaline Phosphatase Lactate Dehydrogenase Troponin T C-Reactive Protein Total Protein Albumin Prealbumin Triglycerides Cholesterol LDL Cholesterol Direct HDL Cholesterol Urine pH Urine WBC (Auto) Urine Creatinine Urine Total Protein Vancomycin Trough Rheumatoid Factor Complement C4 Miscellaneous Test Crossmatch 11/15/16 11/15/16 11/15/16 05:04 11:50 21:28 WBC RBC Hgb Hct MCV MCH MCHC RDW Plt Count Lymph % (Auto) [place] % (Auto) Lymph # [place] # Baso # Seg Neutrophils % Seg Neuts % (Manual) Lymphocytes % (Manual) Monocytes % (Manual) Eosinophils % (Manual) Basophils % (Manual) Nucleated RBC % Seg Neutrophils # Seg Neutrophils # Man Lymphocytes # (Manual) Monocytes # (Manual) Eosinophils # (Manual) PT INR Fibrinogen dRVVT Confirm Interp Factor V Activity POC ABG pH 7.462 H POC ABG pCO2 POC ABG pO2 71 L Sodium Potassium Chloride Carbon Dioxide BUN Creatinine Glucose POC Glucose 121 H 144 H Lactic Acid Calcium Phosphorus Magnesium Direct Bilirubin AST ALT Alkaline Phosphatase Lactate Dehydrogenase Troponin T C-Reactive Protein Total Protein Albumin Prealbumin Triglycerides Cholesterol LDL Cholesterol Direct HDL Cholesterol Urine pH Urine WBC (Auto) Urine Creatinine Urine Total Protein Vancomycin Trough Rheumatoid Factor Complement C4 Miscellaneous Test Crossmatch 11/15/16 11/16/16 11/16/16 23:20 11:44 12:20 WBC 11.7 H RBC 2.73 L Hgb 7.6 L Hct 23.7 L MCV MCH MCHC RDW 16.6 H Plt Count Lymph % (Auto) [place] % (Auto) Lymph # [place] # Baso # Seg Neutrophils % Seg Neuts % (Manual) Lymphocytes % (Manual) Monocytes % (Manual) Eosinophils % (Manual) Basophils % (Manual) Nucleated RBC % Seg Neutrophils # Seg Neutrophils # Man Lymphocytes # (Manual) Monocytes # (Manual) Eosinophils # (Manual) PT INR Fibrinogen dRVVT Confirm Interp Factor V Activity POC ABG pH POC ABG pCO2 POC ABG pO2 Sodium Potassium Chloride Carbon Dioxide BUN Creatinine Glucose POC Glucose 116 H 133 H Lactic Acid Calcium Phosphorus Magnesium Direct Bilirubin AST ALT Alkaline Phosphatase Lactate Dehydrogenase Troponin T C-Reactive Protein Total Protein Albumin Prealbumin Triglycerides Cholesterol LDL Cholesterol Direct HDL Cholesterol Urine pH Urine WBC (Auto) Urine Creatinine Urine Total Protein Vancomycin Trough Rheumatoid Factor Complement C4 Miscellaneous Test Crossmatch 11/16/16 11/16/16 11/17/16 17:05 23:35 03:20 WBC RBC 2.55 L Hgb 7.3 L Hct 21.9 L MCV MCH MCHC RDW 16.6 H Plt Count Lymph % (Auto) [place] % (Auto) 11.5 H Lymph # [place] # 1.1 H Baso # Seg Neutrophils % Seg Neuts % (Manual) Lymphocytes % (Manual) Monocytes % (Manual) Eosinophils % (Manual) Basophils % (Manual) Nucleated RBC % Seg Neutrophils # Seg Neutrophils # Man Lymphocytes # (Manual) Monocytes # (Manual) Eosinophils # (Manual) PT INR Fibrinogen dRVVT Confirm Interp Factor V Activity POC ABG pH POC ABG pCO2 POC ABG pO2 Sodium Potassium Chloride Carbon Dioxide BUN Creatinine Glucose POC Glucose 154 H 125 H Lactic Acid Calcium Phosphorus Magnesium Direct Bilirubin AST ALT Alkaline Phosphatase Lactate Dehydrogenase Troponin T C-Reactive Protein Total Protein Albumin Prealbumin Triglycerides Cholesterol LDL Cholesterol Direct HDL Cholesterol Urine pH Urine WBC (Auto) Urine Creatinine Urine Total Protein Vancomycin Trough Rheumatoid Factor Complement C4 Miscellaneous Test Crossmatch 11/17/16 11/17/1611/17/17 03:20 03:20 06:34 WBC RBC Hgb Hct MCV MCH MCHC RDW Plt Count Lymph % (Auto) [place] % (Auto) Lymph # [place] # Baso # Seg Neutrophils % Seg Neuts % (Manual) Lymphocytes % (Manual) Monocytes % (Manual) Eosinophils % (Manual) Basophils % (Manual) Nucleated RBC % Seg Neutrophils # Seg Neutrophils # Man Lymphocytes # (Manual) Monocytes # (Manual) Eosinophils # (Manual) PT 16.8 H INR 1.37 H Fibrinogen dRVVT Confirm Interp Factor V Activity POC ABG pH POC ABG pCO2 POC ABG pO2 Sodium Potassium 3.5 L Chloride Carbon Dioxide BUN 21 H Creatinine Glucose POC Glucose 121 H Lactic Acid Calcium 7.9 L Phosphorus Magnesium Direct Bilirubin AST ALT Alkaline Phosphatase Lactate Dehydrogenase Troponin T C-Reactive Protein Total Protein Albumin Prealbumin Triglycerides Cholesterol LDL Cholesterol Direct HDL Cholesterol Urine pH Urine WBC (Auto) Urine Creatinine Urine Total Protein Vancomycin Trough Rheumatoid Factor Complement C4 Miscellaneous Test Crossmatch Allied health notes reviewed: RT
[2016-11-17] MEDS: CATAPRES PO SCH ×3 (12:00→23:25)
[2016-11-17] MEDS: SODIUM BICARBONATE FEEDTUBE PRN (13:50)
[2016-11-17] MEDS: PANCREAZE DR 10,500 UNIT FEEDTUBE PRN (13:50)
[2016-11-17] MEDS: IMODIUM PO PRN (13:51)
[2016-11-17] MEDS: TRANSDERM-SCOP TD SCH (14:00)
--- NOTE | 2016-11-17 19:15 | XRay Report ---
FINAL REPORT PROCEDURE: XR ABDOMEN 1V AP TECHNIQUE: Abdominal radiograph, single supine AP view. HISTORY: feeding tube placement COMPARISON: 11/13/2016, CT 11/09/2016 FINDINGS: Feeding tube tip overlies the mid abdomen and is directed inferiorly, likely position within the stomach. Bowel gas pattern is nonobstructive. No focal osseous lesion is seen. IMPRESSION: Feeding tube tip overlies the mid abdomen is directed inferiorly, likely within the stomach
[2016-11-17] MEDS: DIOVAN FEEDTUBE SCH (23:26)
[2016-11-17 23:32] LABS: LDH,Body Fluid 123; Total Protein,Body Fluid < 3.0 (15.0-45.0)
[2016-11-18] MEDS: HumuLIN R SUB-Q SCH ×4 (01:58→18:05)
[2016-11-18] MEDS: LOPRESSOR FEEDTUBE SCH ×3 (04:30→18:07)
[2016-11-18] MEDS: CATAPRES PO SCH ×3 (06:29→21:20)
[2016-11-18] MEDS: IMODIUM PO PRN ×2 (08:05→11:26)
[2016-11-18] MEDS: APRESOLINE PO SCH ×3 (08:24→21:20)
[2016-11-18] MEDS: DIOVAN FEEDTUBE SCH ×2 (10:20→21:19)
[2016-11-18] MEDS: NORVASC PO SCH (10:21)
--- NOTE | 2016-11-18 10:23 | Progress Note ---
Assessment and Plan Assessment and plan: 46-year-old woman with a history of hypertension, diabetes, asthma, hyperlipidemia, chronic kidney disease and anxiety , who was brought in by family because, she couldn't get her words out, her face was also twisted, she was admitted for acute CVA and accelerated hypertension, she had a hx of poor adherence with her medications, and uncontrolled htn. Patient's SBP on admission was noted be greater than 260. TPA was started but this was discontinued after 5 minutes because her blood pressure became uncontrolled. The TPA was not initiated again because the patient was outside the TPA window. Fever Had fever of 100.3 yesterday. ID Physician following. I have discussed case with her multiple times. Patient was recently on Cefepime and Vancomycin, now discontinued few days ago by ID Physician , to monitor off Antibiotics. chest x-ray, blood cultures were unremarkable, catheter site growing multiple organisms -Severe Sepsis with septic shock, recurrent. Patient with multiple episodes of sepsis. Initial episode due to presumed aspiration pneumonia and septic episode on 09/23 from candidemia then a third episode from peritonitis from gastric perforation from dislodged PEG , there was an abscess in the abdomen present at that time that was draining pus. +/-UTI. The latest episode was related to surgical site infection. Antibiotics discontinued few days ago. ID Physician to follow. Surgical wound infection/gram-negative sepsis/candidemia/peritonitis PEG has been removed She will need to be on tube feeds through NG tube for a month, and then either a gastrostomy or jejunostomy tube replaced after her GI wounds have healed and infection is cleared -continue wound care to ostomy sites JUANITA, now ESRD Likely due to vasomotor nephropathy and ATN given sepsis Nephrology input appreciated, continue hemodialysis as per Nephrology Creatinine 2.2 today Acute CVA with infarct. sp TPA Continue neuro checks. Neurology input appreciated, CT shows continued evolution of left MCA infarct with slight mass effect and edema, and there is no hemorrhage - PRINCE showed hyperdynamic with ef of 75%, neither clot nor septal defect seen - MRA Brain shows near complete occlusion of M2 and M3 of the left MCA - Repeat CT scan done on 09/11, shows stable findings - carotid doppler negative - Echo shows preserved systolic function but does show some left ventricular diastolic dysfunction - continue asa and statin for secondary ppx Paroxysmal atrial fibrillation. On Metoprolol Persistent vegetative state This patient's needs placement at either hospice or SNF -She was denied for LTACH Acute hypoxic respiratory failure requiring MV >96hrs Status post tracheostomy, , has been tolerating T piece Nosocomial acquired aspiration pneumonia/sepsis/UTI She had completed a course of antibiotics. Now on Cefepime and Vanco for fever Asthma/COPD exacerbation Now has trach Acute Toxic Metabolic encephalopathy. Multitifactorial, mostly secondary to evolution of CVA Hypertensive Emergency Now on Metoprolol, Cozaar,Hydralazine, Clonidine patch. Bilateral pleural effusion, s/p right thoracentesis today Paroxysmal atrial fibrillation with rapid ventricular rate, failed cardioversion Continue current medications, Not a candidate for anticoagulation secondary to anemia, thrombocytopenia, and massive CVA Hypokalemia/Hypomagnesemia/hypophosphatemia. Replete electrolytes as needed. Diabetes type 2. Continue sliding-scale regular insulin and Accu-Cheks. Hyperlipidemia. Continue statin Nutrition continue tube feeds Anemia requiring multiple transfusions/acute blood loss Has received total 13 units of PRBC this admission. Will continue to transfuse to keep Hemoglobin above 7 Hemoglobin 8.9, most recent Her POA is her Brother, Jam [phone] Disposition. Very poor prognosis. Plan is for SNF placement. She was denied by LTAC Will need to have family meeting to discuss goals of care, the patient is not recovering and will most likely benefit from DNR and Hospice placement. Plan to set up a family meeting for an early next week. At this time she is planned for [facility] placements, but lack of a PEG tube is barring sniff placement, they are not able to accept the patient with a nasogastric tube. The high probability of a clinically significant, sudden or life threatening deterioration of the [pulmonary] system(s) required my full and direct attention , intervention and personal management. The aggregate critical care time was [ 33 ] minutes. This time is in addition to time spent performing reported procedures but includes the following: [] Data Review and interpretation [] Patient assessment and monitoring of vital signs [] Documentation [] Medication orders and management History Interval history: She opens her eyes, but does not obey commands. Has tracheostomy in place , tolerating T piece Hospitalist Physical - Physical exam Narrative exam: General: Opens eyes, no distress, appears chronically ill HEENT: MMM, EOMI cardiac: S1-S2 heard lungs: ventilated breath sounds abdomen: soft, nontender, nondistended bowel sounds positive multiple ostomy bags noted, drainage is reduced extremities: no edema clubbing or cyanosis Skin: no rash or lesion Neuro: Status post tracheostomy, opens eyes, does not obey commands, right- sided weakness (i.e Right side less responsive to painful stimuli) - Constitutional Vitals: Temp Pulse Resp BP Pulse Ox 100.7 F H 108 H 39 H 169/97 99 11/18/16 08:00 11/18/16 06:29 11/18/16 06:00 11/18/16 06:29 11/18/16 09:46 General appearance: Present: no acute distress, obese, other (on vent, non- responsive) Results - Labs CBC & Chem 7: 11/17/16 03:20 11/17/16 03:20 Labs: Laboratory Last Values WBC 9.6 K/mm3 (4.5-11.0) 11/17/16 03:20 RBC 2.55 M/mm3 (3.65-5.03) L 11/17/16 03:20 Hgb 7.3 gm/dl (10.1-14.3) L 11/17/16 03:20 Hct 21.9 % (30.3-42.9) L 11/17/16 03:20 MCV 86 fl (79-97) 11/17/16 03:20 MCH 29 pg (28-32) 11/17/16 03:20 MCHC 34 % (30-34) 11/17/16 03:20 RDW 16.6 % (13.2-15.2) H 11/17/16 03:20 Plt Count 244 K/mm3 (140-440) 11/17/16 03:20 Lymph % (Auto) 29.3 % (13.4-35.0) 11/17/16 03:20 Wirt % (Auto) 11.5 % (0.0-7.3) H 11/17/16 03:20 Eos % (Auto) 2.5 % (0.0-4.3) 11/17/16 03:20 Baso % (Auto) 0.7 % (0.0-1.8) 11/17/16 03:20 Lymph # 2.8 K/mm3 (1.2-5.4) 11/17/16 03:20 Wirt # 1.1 K/mm3 (0.0-0.8) H 11/17/16 03:20 Eos # 0.2 K/mm3 (0.0-0.4) 11/17/16 03:20 Baso # 0.1 K/mm3 (0.0-0.1) 11/17/16 03:20 Add Manual Diff Complete 10/27/16 06:30 Total Counted 100 10/27/16 06:30 Seg Neutrophils % 56.0 % (40.0-70.0) 11/17/16 03:20 Seg Neuts % (Manual) 78.0 % (40.0-70.0) H 10/27/16 06:30 Band Neutrophils % 0 % 10/27/16 06:30 Lymphocytes % (Manual) 14.0 % (13.4-35.0) 10/27/16 06:30 Reactive Lymphs % (Man) 0 % 10/27/16 06:30 Monocytes % (Manual) 7.0 % (0.0-7.3) 10/27/16 06:30 Eosinophils % (Manual) 0 % (0.0-4.3) 10/27/16 06:30 Basophils % (Manual) 1.0 % (0.0-1.8) 10/27/16 06:30 Metamyelocytes % 0 % 10/27/16 06:30 Myelocytes % 0 % 10/27/16 06:30 Promyelocytes % 0 % 10/27/16 06:30 Blast Cells % 0 % 10/27/16 06:30 Nucleated RBC % 2.0 % (0.0-0.9) H 10/27/16 06:30 Seg Neutrophils # 5.4 K/mm3 (1.8-7.7) 11/17/16 03:20 Seg Neutrophils # Man 10.8 K/mm3 (1.8-7.7) H 10/27/16 06:30 Band Neutrophils # 0.0 K/mm3 10/27/16 06:30 Lymphocytes # (Manual) 1.9 K/mm3 (1.2-5.4) 10/27/16 06:30 Abs React Lymphs (Man) 0.0 K/mm3 10/27/16 06:30 Monocytes # (Manual) 1.0 K/mm3 (0.0-0.8) H 10/27/16 06:30 Eosinophils # (Manual) 0.0 K/mm3 (0.0-0.4) 10/27/16 06:30 Basophils # (Manual) 0.1 K/mm3 (0.0-0.1) 10/27/16 06:30 Metamyelocytes # 0.0 K/mm3 10/27/16 06:30 Myelocytes # 0.0 K/mm3 10/27/16 06:30 Promyelocytes # 0.0 K/mm3 10/27/16 06:30 Blast Cells # 0.0 K/mm3 10/27/16 06:30 Pathologist Review 09/13/16 04:00 WBC Morphology Not Reportable 10/27/16 06:30 Hypersegmented Neuts Not Reportable 10/27/16 06:30 Hyposegmented Neuts Not Reportable 10/27/16 06:30 Hypogranular Neuts Not Reportable 10/27/16 06:30 Smudge Cells Not Reportable 10/27/16 06:30 Toxic Granulation Not Reportable 10/27/16 06:30 Toxic Vacuolation Not Reportable 10/27/16 06:30 Dohle Bodies Not Reportable 10/27/16 06:30 Pelger-Huet Anomaly Not Reportable 10/27/16 06:30 Jasmina Rods Not Reportable 10/27/16 06:30 Platelet Estimate Cons 10/27/16 06:30 Clumped Platelets Not Reportable 10/27/16 06:30 Plt Clumps, EDTA Not Reportable 10/27/16 06:30 Large Platelets Few 10/27/16 06:30 Giant Platelets Not Reportable 10/27/16 06:30 Platelet Satelliting Not Reportable 10/27/16 06:30 Plt Morphology Comment Not Reportable 10/27/16 06:30 RBC Morphology Not Reportable 10/27/16 06:30 Dimorphic RBCs Not Reportable 10/27/16 06:30 Polychromasia Not Reportable 10/27/16 06:30 Hypochromasia Not Reportable 10/27/16 06:30 Poikilocytosis Not Reportable 10/27/16 06:30 Anisocytosis 1+ 10/27/16 06:30 Microcytosis Not Reportable 10/27/16 06:30 Macrocytosis Not Reportable 10/27/16 06:30 Spherocytes Not Reportable 10/27/16 06:30 Pappenheimer Bodies Not Reportable 10/27/16 06:30 Sickle Cells Not Reportable 10/27/16 06:30 Target Cells Not Reportable 10/27/16 06:30 Tear Drop Cells Not Reportable 10/27/16 06:30 Ovalocytes Not Reportable 10/27/16 06:30 Stomatocytes Few 10/06/16 03:50 Helmet Cells Not Reportable 10/27/16 06:30 [place] Bodies Not Reportable 10/27/16 06:30 [employer] Rings Not Reportable 10/27/16 06:30 Chuck Cells Not Reportable 10/27/16 06:30 Bite Cells Not Reportable 10/27/16 06:30 Crenated Cell Not Reportable 10/27/16 06:30 Elliptocytes Not Reportable 10/27/16 06:30 Acanthocytes (Spur) Not Reportable 10/27/16 06:30 Rouleaux Not Reportable 10/27/16 06:30 Hemoglobin C Crystals Not Reportable 10/27/16 06:30 Schistocytes Not Reportable 10/27/16 06:30 Malaria parasites Not Reportable 10/27/16 06:30 ESR > 140.0 mm/Hr (0-20) 09/08/16 11:48 Jun Bodies Not Reportable 10/27/16 06:30 Hem Pathologist Commnt No 10/27/16 06:30 PT 16.8 Sec. (12.2-14.9) H 11/17/16 03:20 INR 1.37 (0.87-1.13) H 11/17/16 03:20 APTT 33.0 Sec. (24.2-36.6) 10/09/16 03:45 Thrombin Time 16.8 Sec. (15.1-19.6) 09/03/16 00:10 Fibrinogen 750 mg/dl (211-480) H 09/08/16 11:48 Lupus Anticoagulant see below 09/12/16 09:59 LA PTT Baseline See scanned report 09/12/16 09:59 dRVVT Confirm Interp Positive (Negative) H 09/12/16 09:59 dRVVT Screen 50:50 See scanned report 09/12/16 09:59 dRVVT Mix Interpret See scanned report 09/12/16 09:59 Protein C Antigen 122 % (70-140) 09/08/16 15:35 Free Protein S 97 % normal (50-147) 09/08/16 15:35 Total Protein S 109 % (70-140) 09/08/16 15:35 Antithrombin III Ag 100 % (80-120) 09/08/16 15:35 Heparin Anti-Xa, Unfract Negative (Negative) 09/29/16 13:35 Factor V Activity 182 % (65-150) H 09/08/16 15:35 POC ABG pH 7.467 (7.35-7.45) H 11/17/16 21:22 POC ABG pCO2 38.3 (35-45) 11/17/16 21:22 POC ABG pO2 73 (80-105) L 11/17/16 21:22 POC ABG HCO3 27.7 11/17/16 21:22 POC ABG Total CO2 29 11/17/16 21:22 POC ABG O2 Sat 95 11/17/16 21:22 POC ABG Base Excess 4 11/17/16 21:22 FiO2 28 % 11/17/16 21:22 Sodium 140 mmol/L (137-145) 11/17/16 03:20 Potassium 3.5 mmol/L (3.6-5.0) L 11/17/16 03:20 Chloride 100.0 mmol/L (98-107) 11/17/16 03:20 Carbon Dioxide 26 mmol/L (22-30) 11/17/16 03:20 Anion Gap 18 mmol/L 11/17/16 03:20 BUN 21 mg/dL (7-17) H 11/17/16 03:20 Creatinine 1.2 mg/dL (0.7-1.2) 11/17/16 03:20 Estimated GFR 59 ml/min 11/17/16 03:20 BUN/Creatinine Ratio 17.50 % 11/17/16 03:20 Glucose 100 mg/dL (65-100) 11/17/16 03:20 POC Glucose 99 (70-105) 11/18/16 05:29 Osmolality 351 Mosm/kg 09/16/16 11:47 Lactic Acid 4.50 mmol/L (0.7-2.0) H* 09/28/16 07:25 Calcium 7.9 mg/dL (8.4-10.2) L 11/17/16 03:20 Phosphorus 4.40 mg/dL (2.5-4.5) 11/07/16 06:30 Magnesium 2.20 mg/dL (1.7-2.3) 11/07/16 06:30 Total Bilirubin 0.20 mg/dL (0.1-1.2) 11/06/16 06:25 Direct Bilirubin 0.3 mg/dL (0-0.2) H 10/10/16 05:00 Indirect Bilirubin 0.1 mg/dL 10/10/16 05:00 AST 103 units/L (5-40) H 11/06/16 06:25 ALT 77 units/L (7-56) H 11/06/16 06:25 Alkaline Phosphatase 285 units/L (35-129) H 11/06/16 06:25 Ammonia 27.0 umol/L (25-60) 09/07/16 08:37 Lactate Dehydrogenase 196 units/L (91-180) H 11/11/16 06:59 Total Creatine Kinase 121 units/L (30-135) 09/29/16 20:12 CK-MB (CK-2) < 1.0 ng/mL (0.0-4.0) 09/29/16 20:12 CK-MB (CK-2) Rel Index 0.8 (0-4) 09/29/16 20:12 Troponin T 0.204 ng/mL (0.00-0.029) H* 09/29/16 20:12 C-Reactive Protein 11.40 mg/dL (0.00-1.30) H 11/05/16 13:25 Total Protein 6.1 g/dL (6.3-8.2) L 11/11/16 06:59 Albumin 1.8 g/dL (3.9-5) L 11/06/16 06:25 Albumin/Globulin Ratio 0.4 % 11/06/16 06:25 Prealbumin 0.180 g/L (0.200-0.400) L 11/06/16 06:25 Triglycerides 137 mg/dL (2-149) 09/29/16 20:12 Cholesterol 31 mg/dL (50-199) L 09/29/16 20:12 LDL Cholesterol Direct 4 mg/dL (50-130) L 09/29/16 20:12 HDL Cholesterol 3 mg/dL (40-59) L 09/29/16 20:12 Cholesterol/HDL Ratio 10.33 % 09/29/16 20:12 Angiotensin Convert Enz See scanned report 09/08/16 11:48 Renin 0.99 ng/mL/h (0.25-5.82) 10/07/16 10:56 Aldosterone <1 ng/dL () 10/07/16 10:56 Aldosterone/Renin Dir see below 10/07/16 10:56 Serotonin Release Assay See scanned report 09/29/16 13:35 TSH 1.010 mlU/mL (0.270-4.200) 09/07/16 08:37 HCG, Qual Negative (Negative) 09/03/16 00:10 Urine Color Yellow (Yellow) 11/05/16 13:09 Urine Turbidity Clear (Clear) 11/05/16 13:09 Urine pH 9.0 (5.0-7.0) H 11/05/16 13:09 Ur Specific [place] 1.011 (1.003-1.030) 11/05/16 13:09 Urine Protein 100 mg/dl mg/dL (Negative) 11/05/16 13:09 Urine Glucose (UA) Neg mg/dL (Negative) 11/05/16 13:09 Urine Ketones Neg mg/dL (Negative) 11/05/16 13:09 Urine Blood Neg (Negative) 11/05/16 13:09 Urine Nitrite Neg (Negative) 11/05/16 13:09 Urine Bilirubin Neg (Negative) 11/05/16 13:09 Urine Urobilinogen < 2.0 mg/dL (<2.0) 11/05/16 13:09 Ur Leukocyte Esterase Neg (Negative) 11/05/16 13:09 Urine WBC (Auto) 4.0 /HPF (0.0-6.0) 11/05/16 13:09 Urine RBC (Auto) 1.0 /HPF (0.0-6.0) 11/05/16 13:09 U Epithel Cells (Auto) 1.0 /HPF (0-13.0) 10/07/16 18:30 Urine Bacteria (Auto) 4+ /HPF (Negative) 11/05/16 13:09 Urine WBC Clumps 2+ /HPF 09/07/16 02:47 Hyaline Casts 4 /LPF 09/07/16 02:47 Urine Mucus Few /HPF 10/07/16 18:30 Urine Yeast (Budding) 3+ /HPF 10/07/16 18:30 Urine Eosinophils None seen (None Seen) 09/07/16 16:00 Urine Total Volume 950 11/12/16 10:18 Urine Creatinine 19.7 mg/dL (0.1-20.0) 11/12/16 10:18 Height (in) 65.0 inches 11/12/16 10:18 Weight (lb) 181.0 lbs 11/12/16 10:18 Creatinine Clearance 5 11/12/16 10:18 Urine Sodium 36 mEq/L 09/16/16 19:19 Urine Total Protein 16 mg/dL (5-11.8) H 09/16/16 19:19 Fluid Total Protein < 3.0 (15.0-45.0) L 11/10/16 14:20 Fluid LDH 123 11/10/16 14:20 Vancomycin Trough 2.3 ug/mL (5.0-20.0) L 09/21/16 13:00 Random Vancomycin 24.7 ug/mL (0-40.0) 11/12/16 04:00 Urine Opiates Screen Presumptive negative 09/03/16 15:11 Urine Methadone Screen Presumptive positive 09/03/16 15:11 Ur Barbiturates Screen Presumptive positive 09/03/16 15:11 Ur Phencyclidine Scrn Presumptive negative 09/03/16 15:11 Ur Amphetamines Screen Presumptive negative 09/03/16 15:11 U Benzodiazepines Scrn Presumptive negative 09/03/16 15:11 Urine Cocaine Screen Presumptive negative 09/03/16 15:11 U Marijuana (THC) Screen Presumptive positive 09/03/16 15:11 Drugs of Abuse Note Disclamer 09/03/16 15:11 Rheumatoid Factor 24 IU/ml (0-13) H 09/08/16 11:48 SAHIL Screen Negative (Negative) 09/07/16 09:20 Proteinase 3 (PR3) Ab <1.0 AI (<1.0) 09/07/16 09:20 Myeloperoxidase Ab <1.0 AI (<1.0) 09/07/16 09:20 Sjogren's Antibody <1.0 AI (<1.0) 09/08/16 15:35 Scl-70 Scleroderma Ab <1.0 AI (<1.0) 09/08/16 15:35 Centromere B Antibody <1.0 AI (<1.0) 09/08/16 12:02 Heparin-induced Plt Ab Negative (Negative) 09/29/16 13:35 UF Heparin High Dose 11 % Release 09/29/16 13:35 SUDHIR UFH Low Dose 0.1 6 % Release 09/29/16 13:35 SUDHIR UFH Low Dose 0.5 8 % Release 09/29/16 13:35 Cardiolipid IgG Ab <14 GPL (<=14) 09/12/16 09:59 Cardiolipid IgA Ab <11 APL (<=11) 09/12/16 09:59 Cardiolipid IgM Ab <12 MPL (<=12) 09/12/16 09:59 Complement C3 148 mg/dL (90-180) 09/07/16 09:20 Complement C4 58 mg/dL (16-47) H 09/07/16 09:20 RPR Nonreactive (Nonreactive) 09/08/16 11:48 Hepatitis A IgM Ab Non-reactive (NonReactive) 09/24/16 14:40 Hep Bs Antigen Non-reactive (Negative) 09/24/16 14:40 Hep B Core IgM Ab Non-reactive (NonReactive) 09/24/16 14:40 Hepatitis C Antibody Non-reactive (NonReactive) 09/24/16 14:40 HIV 1&2 Antibody Rapid Non react (Non React) 09/08/16 11:48 HIV P24 Antigen Non react (Non React) 09/08/16 11:48 Miscellaneous Test Flexitest 1 H 11/05/16 13:25 Blood Type A POSITIVE 11/07/16 09:37 Antibody Screen Negative 11/07/16 09:37 DELORIS Antibody Screen Negative 09/25/16 10:30 Crossmatch See Detail 11/07/16 09:37
[2016-11-18] MEDS: PROTONIX FEEDTUBE SCH (11:24)
[2016-11-18] MEDS: QUESTRAN PO SCH (11:24)
--- NOTE | 2016-11-18 12:52 | Progress Note ---
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 * Acute hypoxic respiratory failure * Left renal artery stenosis * Metabolic acidosis - improved * Anemia * Hyponatremia - multifactorial Plan: * hemodialysis MWF and prn * monitor for renal recovery * Rate control per cardiology * 4 k bath with dialysis * Abx/antifungal per ID * Vent management per critical care * Dose medications for renal function * Avoid potential nephrotoxins Subjective Date of service: 11/18/16 Principal diagnosis: Acute resp failure on MVS; S/P Acute CVA; Acute Encephalopathy; JUANITA Interval history: no new event Objective - Exam Narrative Exam: Gen. appearance: Patient lying in bed, no apparent distress, 4. restraints HEENT: Normocephalic, atraumatic, pupils equally round and reactive to light, extraocular movement intact, and no sclericterus,. No JVD or thyromegaly or nodule,neck supple, no carotid bruit ,mucous membranes moist, unable to examine oral cavity Heart: S1, S2, regular rate and rhythm Lungs: Clear to auscultation bilaterally, breathing comfortable Abdomen: Positive bowel sounds, nontender, nondistended, no organomegaly Extremity: No edema, cyanosis, clubbing Skin: No rash, nodules, warm, dry Neuro: Difficult to assess, facial droop, moves all 4 extremities - Vital Signs Vital signs: Vital Signs - 12hr 11/18/16 11/18/16 11/18/16 01:00 02:00 03:00 Temperature Pulse Rate 94 H 95 H 99 H Pulse Rate [ From Monitor] Pulse Rate [ Left Dorsalis Pedis] Pulse Rate [ Left Radial] Pulse Rate [ Right Dorsalis Pedis] Pulse Rate [ Right Radial] Respiratory 28 H 31 H 33 H Rate Blood Pressure 165/92 169/95 169/95 O2 Sat by Pulse 99 99 99 Oximetry O2 Sat by Pulse Oximetry [ Assessment] 11/18/16 11/18/16 11/18/16 04:00 04:30 05:00 Temperature 99.2 F Pulse Rate 102 H 101 H 102 H Pulse Rate [ 102 H From Monitor] Pulse Rate [ 102 H Left Dorsalis Pedis] Pulse Rate [ 102 H Left Radial] Pulse Rate [ 102 H Right Dorsalis Pedis] Pulse Rate [ 102 H Right Radial] Respiratory 37 H 41 H Rate Blood Pressure 159/90 159/80 149/98 O2 Sat by Pulse 99 98 Oximetry O2 Sat by Pulse Oximetry [ Assessment] 11/18/16 11/18/16 11/18/16 06:00 06:29 08:00 Temperature 100.7 F H Pulse Rate 105 H 108 H Pulse Rate [ From Monitor] Pulse Rate [ Left Dorsalis Pedis] Pulse Rate [ Left Radial] Pulse Rate [ Right Dorsalis Pedis] Pulse Rate [ Right Radial] Respiratory 39 H Rate Blood Pressure 169/97 169/97 O2 Sat by Pulse 98 Oximetry O2 Sat by Pulse Oximetry [ Assessment] 11/18/16 11/18/16 11/18/16 09:46 10:20 10:21 Temperature Pulse Rate 89 89 Pulse Rate [ From Monitor] Pulse Rate [ Left Dorsalis Pedis] Pulse Rate [ Left Radial] Pulse Rate [ Right Dorsalis Pedis] Pulse Rate [ Right Radial] Respiratory Rate Blood Pressure 167/88 167/88 O2 Sat by Pulse Oximetry O2 Sat by Pulse 99 Oximetry [ Assessment] 11/18/16 11/18/16 11:00 12:00 Temperature 98.4 F Pulse Rate 89 Pulse Rate [ From Monitor] Pulse Rate [ Left Dorsalis Pedis] Pulse Rate [ Left Radial] Pulse Rate [ Right Dorsalis Pedis] Pulse Rate [ Right Radial] Respiratory Rate Blood Pressure 167/88 O2 Sat by Pulse Oximetry O2 Sat by Pulse Oximetry [ Assessment] - Lab 11/17/16 03:20 11/17/16 03:20 Most recent lab results Calcium 7.9 mg/dL (8.4-10.2) L 11/17/16 03:20 Phosphorus 4.40 mg/dL (2.5-4.5) 11/07/16 06:30 Magnesium 2.20 mg/dL (1.7-2.3) 11/07/16 06:30 Urine Creatinine 19.7 mg/dL (0.1-20.0) 11/12/16 10:18 Urine Sodium 36 mEq/L 09/16/16 19:19 Urine Total Protein 16 mg/dL (5-11.8) H 09/16/16 19:19
--- NOTE | 2016-11-18 13:04 | XRay Report ---
Single view chest: Compared to 11/14/16. History: Atelectasis right lung. Findings: There is opacification noted of the left lower half of chest probably related to large pleural effusion. Minimal right pleural effusion. Minimal mediastinal shift to the right. Tip of tracheostomy tube in normal position. Tip of large bore venous catheter in right atrium. Tip of left PICC line in upper superior vena cava. Impression: Bilateral pleural effusion. Findings as detailed above.
--- NOTE | 2016-11-18 14:47 | Progress Note ---
Assessment and Plan Continue to await healing of the wounds. Once they are healed then will set up for a new PEG or G-tube. Will reevaluate on Monday. Subjective Date of service: 11/18/16 Patient Reports: Positive: other (Unchanged) Objective Vital Signs - 12hr 11/18/16 11/18/16 11/18/16 03:00 04:00 04:30 Temperature 99.2 F Pulse Rate 99 H 102 H 101 H Pulse Rate [ 102 H From Monitor] Pulse Rate [ 102 H Left Dorsalis Pedis] Pulse Rate [ 102 H Left Radial] Pulse Rate [ 102 H Right Dorsalis Pedis] Pulse Rate [ 102 H Right Radial] Respiratory 33 H 37 H Rate Blood Pressure 169/95 159/90 159/80 O2 Sat by Pulse 99 99 Oximetry O2 Sat by Pulse Oximetry [ Assessment] O2 Sat by Pulse Oximetry [ Bilateral Throughout] 11/18/16 11/18/16 11/18/16 05:00 06:00 06:29 Temperature Pulse Rate 102 H 105 H 108 H Pulse Rate [ From Monitor] Pulse Rate [ Left Dorsalis Pedis] Pulse Rate [ Left Radial] Pulse Rate [ Right Dorsalis Pedis] Pulse Rate [ Right Radial] Respiratory 41 H 39 H Rate Blood Pressure 149/98 169/97 169/97 O2 Sat by Pulse 98 98 Oximetry O2 Sat by Pulse Oximetry [ Assessment] O2 Sat by Pulse Oximetry [ Bilateral Throughout] 11/18/16 11/18/16 11/18/16 08:00 09:46 10:20 Temperature 100.7 F H Pulse Rate 89 Pulse Rate [ From Monitor] Pulse Rate [ Left Dorsalis Pedis] Pulse Rate [ Left Radial] Pulse Rate [ Right Dorsalis Pedis] Pulse Rate [ Right Radial] Respiratory Rate Blood Pressure 167/88 O2 Sat by Pulse Oximetry O2 Sat by Pulse 99 Oximetry [ Assessment] O2 Sat by Pulse Oximetry [ Bilateral Throughout] 11/18/16 11/18/16 11/18/16 10:21 11:00 12:00 Temperature 98.4 F Pulse Rate 89 89 Pulse Rate [ From Monitor] Pulse Rate [ Left Dorsalis Pedis] Pulse Rate [ Left Radial] Pulse Rate [ Right Dorsalis Pedis] Pulse Rate [ Right Radial] Respiratory Rate Blood Pressure 167/88 167/88 O2 Sat by Pulse Oximetry O2 Sat by Pulse Oximetry [ Assessment] O2 Sat by Pulse Oximetry [ Bilateral Throughout] 11/18/16 11/18/16 11/18/16 13:00 13:20 13:30 Temperature 98.4 F Pulse Rate 83 83 85 Pulse Rate [ From Monitor] Pulse Rate [ Left Dorsalis Pedis] Pulse Rate [ Left Radial] Pulse Rate [ Right Dorsalis Pedis] Pulse Rate [ Right Radial] Respiratory 28 H Rate Blood Pressure 123/82 123/82 133/70 O2 Sat by Pulse Oximetry O2 Sat by Pulse Oximetry [ Assessment] O2 Sat by Pulse 100 Oximetry [ Bilateral Throughout] 11/18/16 11/18/16 11/18/16 13:45 14:00 14:15 Temperature Pulse Rate 92 H 93 H 94 H Pulse Rate [ From Monitor] Pulse Rate [ Left Dorsalis Pedis] Pulse Rate [ Left Radial] Pulse Rate [ Right Dorsalis Pedis] Pulse Rate [ Right Radial] Respiratory Rate Blood Pressure 158/88 164/93 169/92 O2 Sat by Pulse Oximetry O2 Sat by Pulse Oximetry [ Assessment] O2 Sat by Pulse Oximetry [ Bilateral Throughout] 11/18/16 14:30 Temperature Pulse Rate 92 H Pulse Rate [ From Monitor] Pulse Rate [ Left Dorsalis Pedis] Pulse Rate [ Left Radial] Pulse Rate [ Right Dorsalis Pedis] Pulse Rate [ Right Radial] Respiratory Rate Blood Pressure 159/87 O2 Sat by Pulse Oximetry O2 Sat by Pulse Oximetry [ Assessment] O2 Sat by Pulse Oximetry [ Bilateral Throughout] - Abdomen soft, bowel sounds normal, wound (Still with ostomy bags in place with minimal output in bags) - Labs 11/17/16 03:20 11/17/16 03:20
[2016-11-18] MEDS ORDERED: NACL 0.9% 1000 ML 2,000 ML ONE (15:48)
[2016-11-18] MEDS: HEPARIN IV PRN (17:00)
[2016-11-19] MEDS: HumuLIN R SUB-Q SCH ×4 (01:32→18:58)
[2016-11-19] MEDS: LOPRESSOR FEEDTUBE SCH ×3 (02:50→20:02)
[2016-11-19] MEDS: CATAPRES PO SCH ×3 (05:11→22:15)
[2016-11-19] MEDS: DIOVAN FEEDTUBE SCH ×2 (09:11→22:15)
[2016-11-19] MEDS: NORVASC PO SCH (09:12)
[2016-11-19] MEDS: APRESOLINE PO SCH ×3 (09:12→20:02)
[2016-11-19] MEDS: QUESTRAN PO SCH (09:12)
[2016-11-19] MEDS: PROTONIX FEEDTUBE SCH (09:12)
--- NOTE | 2016-11-19 11:12 | Progress Note ---
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 * Acute hypoxic respiratory failure * Left renal artery stenosis * Metabolic acidosis - improved * Anemia * Hyponatremia - multifactorial Plan: * hemodialysis MWF and prn * monitor for renal recovery * Rate control per cardiology * 4 k bath with dialysis * Dose medications for renal function * Avoid potential nephrotoxins Subjective Date of service: 11/19/16 Principal diagnosis: Acute resp failure on MVS; S/P Acute CVA; Acute Encephalopathy; JUANITA Interval history: no new event Objective - Exam Narrative Exam: Gen. appearance: Patient lying in bed, no apparent distress, 4. restraints HEENT: Normocephalic, atraumatic, pupils equally round and reactive to light, extraocular movement intact, and no sclericterus,. No JVD or thyromegaly or nodule,neck supple, no carotid bruit ,mucous membranes moist, unable to examine oral cavity Heart: S1, S2, regular rate and rhythm Lungs: Clear to auscultation bilaterally, breathing comfortable Abdomen: Positive bowel sounds, nontender, nondistended, no organomegaly Extremity: No edema, cyanosis, clubbing Skin: No rash, nodules, warm, dry Neuro: Difficult to assess, facial droop, moves all 4 extremities - Vital Signs Vital signs: Vital Signs - 12hr 11/19/16 11/19/16 11/19/16 00:00 04:00 05:11 Temperature 99.0 F Pulse Rate 92 H Respiratory 16 Rate Blood Pressure 161/93 141/73 O2 Sat by Pulse 97 Oximetry 11/19/16 11/19/16 09:11 09:12 Temperature Pulse Rate 104 H 104 H Respiratory Rate Blood Pressure 187/102 187/102 O2 Sat by Pulse Oximetry - Lab 11/17/16 03:20 11/17/16 03:20 Most recent lab results Calcium 7.9 mg/dL (8.4-10.2) L 11/17/16 03:20 Phosphorus 4.40 mg/dL (2.5-4.5) 11/07/16 06:30 Magnesium 2.20 mg/dL (1.7-2.3) 11/07/16 06:30 Urine Creatinine 19.7 mg/dL (0.1-20.0) 11/12/16 10:18 Urine Sodium 36 mEq/L 09/16/16 19:19 Urine Total Protein 16 mg/dL (5-11.8) H 09/16/16 19:19
--- NOTE | 2016-11-19 11:16 | Progress Note ---
Assessment and Plan Assessment and plan: 46-year-old woman with a history of hypertension, diabetes, asthma, hyperlipidemia, chronic kidney disease and anxiety , who was brought in by family because, she couldn't get her words out, her face was also twisted, she was admitted for acute CVA and accelerated hypertension, she had a hx of poor adherence with her medications, and uncontrolled htn. Patient's SBP on admission was noted be greater than 260. TPA was started but this was discontinued after 5 minutes because her blood pressure became uncontrolled. The TPA was not initiated again because the patient was outside the TPA window. Fever Had fever of 100.3 yesterday. ID Physician following. I have discussed case with her multiple times. Patient was recently on Cefepime and Vancomycin, now discontinued few days ago by ID Physician , to monitor off Antibiotics. chest x-ray, blood cultures were unremarkable, catheter site growing multiple organisms -Severe Sepsis with septic shock, recurrent. Patient with multiple episodes of sepsis. Initial episode due to presumed aspiration pneumonia and septic episode on 09/23 from candidemia then a third episode from peritonitis from gastric perforation from dislodged PEG , there was an abscess in the abdomen present at that time that was draining pus. +/-UTI. The latest episode was related to surgical site infection. Antibiotics discontinued few days ago. ID Physician to follow. Surgical wound infection/gram-negative sepsis/candidemia/peritonitis PEG has been removed She will need to be on tube feeds through NG tube for a month, and then either a gastrostomy or jejunostomy tube replaced after her GI wounds have healed and infection is cleared -continue wound care to ostomy sites JUANITA, now ESRD Likely due to vasomotor nephropathy and ATN given sepsis Nephrology input appreciated, continue hemodialysis as per Nephrology Creatinine 2.2 today Acute CVA with infarct. sp TPA Continue neuro checks. Neurology input appreciated, CT shows continued evolution of left MCA infarct with slight mass effect and edema, and there is no hemorrhage - PRINCE showed hyperdynamic with ef of 75%, neither clot nor septal defect seen - MRA Brain shows near complete occlusion of M2 and M3 of the left MCA - Repeat CT scan done on 09/11, shows stable findings - carotid doppler negative - Echo shows preserved systolic function but does show some left ventricular diastolic dysfunction - continue asa and statin for secondary ppx Paroxysmal atrial fibrillation. On Metoprolol Persistent vegetative state This patient's needs placement at either hospice or SNF -She was denied for LTACH Acute hypoxic respiratory failure requiring MV >96hrs Status post tracheostomy, , has been tolerating T piece Nosocomial acquired aspiration pneumonia/sepsis/UTI She had completed a course of antibiotics. Now on Cefepime and Vanco for fever Asthma/COPD exacerbation Now has trach Acute Toxic Metabolic encephalopathy. Multitifactorial, mostly secondary to evolution of CVA Hypertensive Emergency Now on Metoprolol, Cozaar,Hydralazine, Clonidine patch. Bilateral pleural effusion, s/p right thoracentesis today Paroxysmal atrial fibrillation with rapid ventricular rate, failed cardioversion Continue current medications, Not a candidate for anticoagulation secondary to anemia, thrombocytopenia, and massive CVA Hypokalemia/Hypomagnesemia/hypophosphatemia. Replete electrolytes as needed. Diabetes type 2. Continue sliding-scale regular insulin and Accu-Cheks. Hyperlipidemia. Continue statin Nutrition continue tube feeds Anemia requiring multiple transfusions/acute blood loss Has received total 13 units of PRBC this admission. Will continue to transfuse to keep Hemoglobin above 7 Hemoglobin 8.9, most recent Her POA is her Brother, Jam [phone] Disposition. Very poor prognosis. Plan is for SNF placement. She was denied by LTAC Will need to have family meeting to discuss goals of care, the patient is not recovering and will most likely benefit from DNR and Hospice placement. Plan to set up a family meeting for an early next week. At this time she is planned for SNF placements, but lack of a PEG tube is barring sniff placement, they are not able to accept the patient with a nasogastric tube. History Interval history: She opens her eyes, but does not obey commands. Has tracheostomy in place , tolerating T piece Hospitalist Physical - Physical exam Narrative exam: General: Opens eyes, no distress, appears chronically ill HEENT: MMM, EOMI cardiac: S1-S2 heard lungs: ventilated breath sounds abdomen: soft, nontender, nondistended bowel sounds positive multiple ostomy bags noted, drainage is reduced extremities: no edema clubbing or cyanosis Skin: no rash or lesion Neuro: Status post tracheostomy, opens eyes, does not obey commands, right- sided weakness (i.e Right side less responsive to painful stimuli) - Constitutional Vitals: Temp Pulse Resp BP Pulse Ox 99.0 F 104 H 16 187/102 97 11/19/16 00:00 11/19/16 09:12 11/19/16 00:00 11/19/16 09:12 11/19/16 00:00 General appearance: Present: no acute distress, obese, other (on vent, non- responsive) Results - Labs CBC & Chem 7: 11/17/16 03:20 11/17/16 03:20 Labs: Laboratory Last Values WBC 9.6 K/mm3 (4.5-11.0) 11/17/16 03:20 RBC 2.55 M/mm3 (3.65-5.03) L 11/17/16 03:20 Hgb 7.3 gm/dl (10.1-14.3) L 11/17/16 03:20 Hct 21.9 % (30.3-42.9) L 11/17/16 03:20 MCV 86 fl (79-97) 11/17/16 03:20 MCH 29 pg (28-32) 11/17/16 03:20 MCHC 34 % (30-34) 11/17/16 03:20 RDW 16.6 % (13.2-15.2) H 11/17/16 03:20 Plt Count 244 K/mm3 (140-440) 11/17/16 03:20 Lymph % (Auto) 29.3 % (13.4-35.0) 11/17/16 03:20 [place] % (Auto) 11.5 % (0.0-7.3) H 11/17/16 03:20 Eos % (Auto) 2.5 % (0.0-4.3) 11/17/16 03:20 Baso % (Auto) 0.7 % (0.0-1.8) 11/17/16 03:20 Lymph # 2.8 K/mm3 (1.2-5.4) 11/17/16 03:20 Woodruff # 1.1 K/mm3 (0.0-0.8) H 11/17/16 03:20 Eos # 0.2 K/mm3 (0.0-0.4) 11/17/16 03:20 Baso # 0.1 K/mm3 (0.0-0.1) 11/17/16 03:20 Add Manual Diff Complete 10/27/16 06:30 Total Counted 100 10/27/16 06:30 Seg Neutrophils % 56.0 % (40.0-70.0) 11/17/16 03:20 Seg Neuts % (Manual) 78.0 % (40.0-70.0) H 10/27/16 06:30 Band Neutrophils % 0 % 10/27/16 06:30 Lymphocytes % (Manual) 14.0 % (13.4-35.0) 10/27/16 06:30 Reactive Lymphs % (Man) 0 % 10/27/16 06:30 Monocytes % (Manual) 7.0 % (0.0-7.3) 10/27/16 06:30 Eosinophils % (Manual) 0 % (0.0-4.3) 10/27/16 06:30 Basophils % (Manual) 1.0 % (0.0-1.8) 10/27/16 06:30 Metamyelocytes % 0 % 10/27/16 06:30 Myelocytes % 0 % 10/27/16 06:30 Promyelocytes % 0 % 10/27/16 06:30 Blast Cells % 0 % 10/27/16 06:30 Nucleated RBC % 2.0 % (0.0-0.9) H 10/27/16 06:30 Seg Neutrophils # 5.4 K/mm3 (1.8-7.7) 11/17/16 03:20 Seg Neutrophils # Man 10.8 K/mm3 (1.8-7.7) H 10/27/16 06:30 Band Neutrophils # 0.0 K/mm3 10/27/16 06:30 Lymphocytes # (Manual) 1.9 K/mm3 (1.2-5.4) 10/27/16 06:30 Abs React Lymphs (Man) 0.0 K/mm3 10/27/16 06:30 Monocytes # (Manual) 1.0 K/mm3 (0.0-0.8) H 10/27/16 06:30 Eosinophils # (Manual) 0.0 K/mm3 (0.0-0.4) 10/27/16 06:30 Basophils # (Manual) 0.1 K/mm3 (0.0-0.1) 10/27/16 06:30 Metamyelocytes # 0.0 K/mm3 10/27/16 06:30 Myelocytes # 0.0 K/mm3 10/27/16 06:30 Promyelocytes # 0.0 K/mm3 10/27/16 06:30 Blast Cells # 0.0 K/mm3 10/27/16 06:30 Pathologist Review 09/13/16 04:00 WBC Morphology Not Reportable 10/27/16 06:30 Hypersegmented Neuts Not Reportable 10/27/16 06:30 Hyposegmented Neuts Not Reportable 10/27/16 06:30 Hypogranular Neuts Not Reportable 10/27/16 06:30 Smudge Cells Not Reportable 10/27/16 06:30 Toxic Granulation Not Reportable 10/27/16 06:30 Toxic Vacuolation Not Reportable 10/27/16 06:30 Dohle Bodies Not Reportable 10/27/16 06:30 Pelger-Huet Anomaly Not Reportable 10/27/16 06:30 Jasmina Rods Not Reportable 10/27/16 06:30 Platelet Estimate Cons 10/27/16 06:30 Clumped Platelets Not Reportable 10/27/16 06:30 Plt Clumps, EDTA Not Reportable 10/27/16 06:30 Large Platelets Few 10/27/16 06:30 Giant Platelets Not Reportable 10/27/16 06:30 Platelet Satelliting Not Reportable 10/27/16 06:30 Plt Morphology Comment Not Reportable 10/27/16 06:30 RBC Morphology Not Reportable 10/27/16 06:30 Dimorphic RBCs Not Reportable 10/27/16 06:30 Polychromasia Not Reportable 10/27/16 06:30 Hypochromasia Not Reportable 10/27/16 06:30 Poikilocytosis Not Reportable 10/27/16 06:30 Anisocytosis 1+ 10/27/16 06:30 Microcytosis Not Reportable 10/27/16 06:30 Macrocytosis Not Reportable 10/27/16 06:30 Spherocytes Not Reportable 10/27/16 06:30 Pappenheimer Bodies Not Reportable 10/27/16 06:30 Sickle Cells Not Reportable 10/27/16 06:30 Target Cells Not Reportable 10/27/16 06:30 Tear Drop Cells Not Reportable 10/27/16 06:30 Ovalocytes Not Reportable 10/27/16 06:30 Stomatocytes Few 10/06/16 03:50 Helmet Cells Not Reportable 10/27/16 06:30 Monet-Gerlach Bodies Not Reportable 10/27/16 06:30 [place] Rings Not Reportable 10/27/16 06:30 [place] Cells Not Reportable 10/27/16 06:30 Bite Cells Not Reportable 10/27/16 06:30 Crenated Cell Not Reportable 10/27/16 06:30 Elliptocytes Not Reportable 10/27/16 06:30 Acanthocytes (Spur) Not Reportable 10/27/16 06:30 Rouleaux Not Reportable 10/27/16 06:30 Hemoglobin C Crystals Not Reportable 10/27/16 06:30 Schistocytes Not Reportable 10/27/16 06:30 Malaria parasites Not Reportable 10/27/16 06:30 ESR > 140.0 mm/Hr (0-20) 09/08/16 11:48 Jun Bodies Not Reportable 10/27/16 06:30 Hem Pathologist Commnt No 10/27/16 06:30 PT 16.8 Sec. (12.2-14.9) H 11/17/16 03:20 INR 1.37 (0.87-1.13) H 11/17/16 03:20 APTT 33.0 Sec. (24.2-36.6) 10/09/16 03:45 Thrombin Time 16.8 Sec. (15.1-19.6) 09/03/16 00:10 Fibrinogen 750 mg/dl (211-480) H 09/08/16 11:48 Lupus Anticoagulant see below 09/12/16 09:59 LA PTT Baseline See scanned report 09/12/16 09:59 dRVVT Confirm Interp Positive (Negative) H 09/12/16 09:59 dRVVT Screen 50:50 See scanned report 09/12/16 09:59 dRVVT Mix Interpret See scanned report 09/12/16 09:59 Protein C Antigen 122 % (70-140) 09/08/16 15:35 Free Protein S 97 % normal (50-147) 09/08/16 15:35 Total Protein S 109 % (70-140) 09/08/16 15:35 Antithrombin III Ag 100 % (80-120) 09/08/16 15:35 Heparin Anti-Xa, Unfract Negative (Negative) 09/29/16 13:35 Factor V Activity 182 % (65-150) H 09/08/16 15:35 POC ABG pH 7.467 (7.35-7.45) H 11/17/16 21:22 POC ABG pCO2 38.3 (35-45) 11/17/16 21:22 POC ABG pO2 73 (80-105) L 11/17/16 21:22 POC ABG HCO3 27.7 11/17/16 21:22 POC ABG Total CO2 29 11/17/16 21:22 POC ABG O2 Sat 95 11/17/16 21:22 POC ABG Base Excess 4 11/17/16 21:22 FiO2 28 % 11/17/16 21:22 Sodium 140 mmol/L (137-145) 11/17/16 03:20 Potassium 3.5 mmol/L (3.6-5.0) L 11/17/16 03:20 Chloride 100.0 mmol/L (98-107) 11/17/16 03:20 Carbon Dioxide 26 mmol/L (22-30) 11/17/16 03:20 Anion Gap 18 mmol/L 11/17/16 03:20 BUN 21 mg/dL (7-17) H 11/17/16 03:20 Creatinine 1.2 mg/dL (0.7-1.2) 11/17/16 03:20 Estimated GFR 59 ml/min 11/17/16 03:20 BUN/Creatinine Ratio 17.50 % 11/17/16 03:20 Glucose 100 mg/dL (65-100) 11/17/16 03:20 POC Glucose 110 (70-105) H 11/19/16 05:00 Osmolality 351 Mosm/kg 09/16/16 11:47 Lactic Acid 4.50 mmol/L (0.7-2.0) H* 09/28/16 07:25 Calcium 7.9 mg/dL (8.4-10.2) L 11/17/16 03:20 Phosphorus 4.40 mg/dL (2.5-4.5) 11/07/16 06:30 Magnesium 2.20 mg/dL (1.7-2.3) 11/07/16 06:30 Total Bilirubin 0.20 mg/dL (0.1-1.2) 11/06/16 06:25 Direct Bilirubin 0.3 mg/dL (0-0.2) H 10/10/16 05:00 Indirect Bilirubin 0.1 mg/dL 10/10/16 05:00 AST 103 units/L (5-40) H 11/06/16 06:25 ALT 77 units/L (7-56) H 11/06/16 06:25 Alkaline Phosphatase 285 units/L (35-129) H 11/06/16 06:25 Ammonia 27.0 umol/L (25-60) 09/07/16 08:37 Lactate Dehydrogenase 196 units/L (91-180) H 11/11/16 06:59 Total Creatine Kinase 121 units/L (30-135) 09/29/16 20:12 CK-MB (CK-2) < 1.0 ng/mL (0.0-4.0) 09/29/16 20:12 CK-MB (CK-2) Rel Index 0.8 (0-4) 09/29/16 20:12 Troponin T 0.204 ng/mL (0.00-0.029) H* 09/29/16 20:12 C-Reactive Protein 11.40 mg/dL (0.00-1.30) H 11/05/16 13:25 Total Protein 6.1 g/dL (6.3-8.2) L 11/11/16 06:59 Albumin 1.8 g/dL (3.9-5) L 11/06/16 06:25 Albumin/Globulin Ratio 0.4 % 11/06/16 06:25 Prealbumin 0.180 g/L (0.200-0.400) L 11/06/16 06:25 Triglycerides 137 mg/dL (2-149) 09/29/16 20:12 Cholesterol 31 mg/dL (50-199) L 09/29/16 20:12 LDL Cholesterol Direct 4 mg/dL (50-130) L 09/29/16 20:12 HDL Cholesterol 3 mg/dL (40-59) L 09/29/16 20:12 Cholesterol/HDL Ratio 10.33 % 09/29/16 20:12 Angiotensin Convert Enz See scanned report 09/08/16 11:48 Renin 0.99 ng/mL/h (0.25-5.82) 10/07/16 10:56 Aldosterone <1 ng/dL () 10/07/16 10:56 Aldosterone/Renin Dir see below 10/07/16 10:56 Serotonin Release Assay See scanned report 09/29/16 13:35 TSH 1.010 mlU/mL (0.270-4.200) 09/07/16 08:37 HCG, Qual Negative (Negative) 09/03/16 00:10 Urine Color Yellow (Yellow) 11/05/16 13:09 Urine Turbidity Clear (Clear) 11/05/16 13:09 Urine pH 9.0 (5.0-7.0) H 11/05/16 13:09 Ur Specific [place] 1.011 (1.003-1.030) 11/05/16 13:09 Urine Protein 100 mg/dl mg/dL (Negative) 11/05/16 13:09 Urine Glucose (UA) Neg mg/dL (Negative) 11/05/16 13:09 Urine Ketones Neg mg/dL (Negative) 11/05/16 13:09 Urine Blood Neg (Negative) 11/05/16 13:09 Urine Nitrite Neg (Negative) 11/05/16 13:09 Urine Bilirubin Neg (Negative) 11/05/16 13:09 Urine Urobilinogen < 2.0 mg/dL (<2.0) 11/05/16 13:09 Ur Leukocyte Esterase Neg (Negative) 11/05/16 13:09 Urine WBC (Auto) 4.0 /HPF (0.0-6.0) 11/05/16 13:09 Urine RBC (Auto) 1.0 /HPF (0.0-6.0) 11/05/16 13:09 U Epithel Cells (Auto) 1.0 /HPF (0-13.0) 10/07/16 18:30 Urine Bacteria (Auto) 4+ /HPF (Negative) 11/05/16 13:09 Urine WBC Clumps 2+ /HPF 09/07/16 02:47 Hyaline Casts 4 /LPF 09/07/16 02:47 Urine Mucus Few /HPF 10/07/16 18:30 Urine Yeast (Budding) 3+ /HPF 10/07/16 18:30 Urine Eosinophils None seen (None Seen) 09/07/16 16:00 Urine Total Volume 950 11/12/16 10:18 Urine Creatinine 19.7 mg/dL (0.1-20.0) 11/12/16 10:18 Height (in) 65.0 inches 11/12/16 10:18 Weight (lb) 181.0 lbs 11/12/16 10:18 Creatinine Clearance 5 11/12/16 10:18 Urine Sodium 36 mEq/L 09/16/16 19:19 Urine Total Protein 16 mg/dL (5-11.8) H 09/16/16 19:19 Fluid Total Protein < 3.0 (15.0-45.0) L 11/10/16 14:20 Fluid LDH 123 11/10/16 14:20 Vancomycin Trough 2.3 ug/mL (5.0-20.0) L 09/21/16 13:00 Random Vancomycin 24.7 ug/mL (0-40.0) 11/12/16 04:00 Urine Opiates Screen Presumptive negative 09/03/16 15:11 Urine Methadone Screen Presumptive positive 09/03/16 15:11 Ur Barbiturates Screen Presumptive positive 09/03/16 15:11 Ur Phencyclidine Scrn Presumptive negative 09/03/16 15:11 Ur Amphetamines Screen Presumptive negative 09/03/16 15:11 U Benzodiazepines Scrn Presumptive negative 09/03/16 15:11 Urine Cocaine Screen Presumptive negative 09/03/16 15:11 U Marijuana (THC) Screen Presumptive positive 09/03/16 15:11 Drugs of Abuse Note Disclamer 09/03/16 15:11 Rheumatoid Factor 24 IU/ml (0-13) H 09/08/16 11:48 SAHIL Screen Negative (Negative) 09/07/16 09:20 Proteinase 3 (PR3) Ab <1.0 AI (<1.0) 09/07/16 09:20 Myeloperoxidase Ab <1.0 AI (<1.0) 09/07/16 09:20 Sjogren's Antibody <1.0 AI (<1.0) 09/08/16 15:35 Scl-70 Scleroderma Ab <1.0 AI (<1.0) 09/08/16 15:35 Centromere B Antibody <1.0 AI (<1.0) 09/08/16 12:02 Heparin-induced Plt Ab Negative (Negative) 09/29/16 13:35 UF Heparin High Dose 11 % Release 09/29/16 13:35 SUDHIR UFH Low Dose 0.1 6 % Release 09/29/16 13:35 SUDHIR UFH Low Dose 0.5 8 % Release 09/29/16 13:35 Cardiolipid IgG Ab <14 GPL (<=14) 09/12/16 09:59 Cardiolipid IgA Ab <11 APL (<=11) 09/12/16 09:59 Cardiolipid IgM Ab <12 MPL (<=12) 09/12/16 09:59 Complement C3 148 mg/dL (90-180) 09/07/16 09:20 Complement C4 58 mg/dL (16-47) H 09/07/16 09:20 RPR Nonreactive (Nonreactive) 09/08/16 11:48 Hepatitis A IgM Ab Non-reactive (NonReactive) 09/24/16 14:40 Hep Bs Antigen Non-reactive (Negative) 09/24/16 14:40 Hep B Core IgM Ab Non-reactive (NonReactive) 09/24/16 14:40 Hepatitis C Antibody Non-reactive (NonReactive) 09/24/16 14:40 HIV 1&2 Antibody Rapid Non react (Non React) 09/08/16 11:48 HIV P24 Antigen Non react (Non React) 09/08/16 11:48 Miscellaneous Test Flexitest 1 H 11/05/16 13:25 Blood Type A POSITIVE 11/07/16 09:37 Antibody Screen Negative 11/07/16 09:37 DELORIS Antibody Screen Negative 09/25/16 10:30 Crossmatch See Detail 11/07/16 09:37
[2016-11-19] MEDS: DURAGESIC TD SCH (13:46)
[2016-11-20] MEDS: HumuLIN R SUB-Q SCH ×4 (01:00→18:13)
[2016-11-20] MEDS: LOPRESSOR FEEDTUBE SCH ×3 (03:04→21:47)
[2016-11-20 05:34] LABS: Basophils # (Auto) 0.1 K/mm3 (0.0-0.1); Basophils % (Auto) 0.5 % (0.0-1.8); Eosinophils # (Auto) 0.2 K/mm3 (0.0-0.4); Eosinophils % (Auto) 1.2 % (0.0-4.3); Hematocrit 23.6 % (30.3-42.9); Hemoglobin 7.7 gm/dl (10.1-14.3); Lymphocytes # (Auto) 3.6 K/mm3 (1.2-5.4); Lymphocytes % (Auto) 27.4 % (13.4-35.0); Mean Corpuscular HGB Conc 33 % (30-34); Mean Corpuscular Hemoglobin 28 pg (28-32); Mean Corpuscular Volume 86 fl (79-97); Monocytes # (Auto) 1.4 K/mm3 (0.0-0.8); Monocytes % (Auto) 10.8 % (0.0-7.3); Platelet Count 338 K/mm3 (140-440); Red Blood Count 2.74 M/mm3 (3.65-5.03); Red Cell Distribution Width 16.9 % (13.2-15.2)
[2016-11-20 05:45] LABS: BUN/Creatinine Ratio 17.22; Calcium 8.5 mg/dL (8.4-10.2)
[2016-11-20] MEDS: APRESOLINE IV PRN ×2 (05:56→12:50)
[2016-11-20] MEDS: CATAPRES PO SCH ×3 (05:56→21:48)
[2016-11-20] MEDS: APRESOLINE PO SCH ×3 (09:08→19:54)
[2016-11-20] MEDS: DIOVAN FEEDTUBE SCH ×2 (09:10→21:46)
[2016-11-20] MEDS: QUESTRAN PO SCH (09:10)
[2016-11-20] MEDS: NORVASC PO SCH (09:10)
[2016-11-20] MEDS: PROTONIX FEEDTUBE SCH (09:11)
--- NOTE | 2016-11-20 09:34 | Progress Note ---
Assessment and Plan (1) Acute respiratory failure with hypoxia Current Visit: Yes Status: Acute Plan to address problem: - continue aspiration precautions - continue to wean oxygen for MAP > 94% - continue bronchodilators and pulmonary toilet - s/p tracheostomy - continue scopolamine - ABG's prn at this point for increased work of breathing or other resp distress (2) Acute CVA (cerebrovascular accident) Current Visit: Yes Status: Acute Plan to address problem: - Left MCA teritory stroke - seen by neurology and prognosis for recovery of mental status guarded to poor - optimizing secondary prevention modalities now (BP, lipid anti-platelet therapy) - off systemic steroids now (started earlier for edema) - clinically mild improvement (3) Hypertensive emergency Current Visit: Yes Status: Acute Plan to address problem: - continue antihypertensives (on metoprolol, clonidine and cozaar) - use prn hydralazine (4) Obesity (BMI 35.0-39.9 without comorbidity) Current Visit: Yes Status: Chronic Plan to address problem: - now at goal rate on tube feeding - stopped TPN (5) Type 2 diabetes mellitus Current Visit: Yes Status: Chronic Qualifiers: Diabetes mellitus complication status: D Diabetes mellitus complication detail: D Diabetic retinopathy severity: D Proliferative retinopathy type: P Diabetes mellitus macular edema: D Diabetes mellitus group home insulin use : D Laterality: L Chronic kidney disease stage: C Plan to address problem: - continue SSI - discontinued lantus prior re: hypoglycemia - target BG's <180 mg/dl (6) Leukocytosis (leucocytosis) Current Visit: Yes Status: Acute Qualifiers: Leukocytosis type: leukemoid reaction Qualified Code(s): D72.823 - Leukemoid reaction Plan to address problem: - resolved - see sepsis section below (7) Agitation Current Visit: Yes Status: Acute Plan to address problem: - prn sedation / analgesia - tapered off seroquel for now (8) Atrial fibrillation Current Visit: Yes Status: Acute Qualifiers: Atrial fibrillation type: A Plan to address problem: - off amiodarone - continue p.o. metoprolol scheduled at 50mg q6h and adjust as necessary (9) JUANITA (acute kidney injury) Current Visit: Yes Status: Acute Plan to address problem: - s/p tunnelled vas-cath - HD/UF -- - per nephrology otherwise - making some urine (10) Pyrexia of unknown origin Current Visit: Yes Status: Acute Plan to address problem: - resolved (11) Severe sepsis Current Visit: Yes Status: Acute Plan to address problem: - resolved - complete AB's per ID recs (12) Emesis Current Visit: Yes Status: Acute Qualifiers: Vomiting type: V Vomiting Intractability: V Nausea presence: N Plan to address problem: - resolved (13) Dysphagia, oropharyngeal Current Visit: Yes Status: Acute Plan to address problem: - continue DHT feeding - replace PEG once ok with surgery (14) Discharge planning issues Current Visit: Yes Status: Acute Plan to address problem: - SNF vs LTAC Subjective Date of service: 11/20/16 Principal diagnosis: Acute resp failure on MVS; S/P Acute CVA; Acute Encephalopathy; JUANITA Interval history: Seen and examined at bedside; 24 hour events reviewed; nursing and respiratory care staff consulted; no adverse overnight events reported to me; AMS is persistent; tenuously tolerating t-piece with intermittent tachypnea; AMS is persistent; loose stools; No emesis or overt aspiration and no seizures Objective Vital Signs - 12hr 11/19/16 11/20/16 11/20/16 23:00 00:43 05:00 Temperature 100.4 F H 99.2 F Pulse Rate 110 H 105 H 95 H Respiratory 20 22 Rate Blood Pressure Blood Pressure 180/106 213/105 [Right] O2 Sat by Pulse 94 100 Oximetry 11/20/16 09:10 Temperature Pulse Rate 95 H Respiratory Rate Blood Pressure 200/95 Blood Pressure [Right] O2 Sat by Pulse Oximetry Constitutional: no acute distress, other (eyes open; tracking movements) Eyes: non-icteric, other (tracheostomy tube in midline of neck) ENT: oropharynx moist Neck: supple, no lymphadenopathy Effort: mildly labored Ascultation: Bilateral: diminished breath sounds (bases), rhonchi (and referred upper airway sounds) Cardiovascular: regular rate and rhythm, other (no rubs / murmurs) Gastrointestinal: hypoactive bowel sounds, soft, non-tender, non-distended, other (RLQ stomas with colostomy bags) Integumentary: other (healing back burn-like injury; poor turgor) Extremities: no cyanosis, no edema, pulses normal, no ischemia or petechiae Neurologic: pupils equal and round, other (encephalopathic) Psychiatric: other (unable to assess) CBC and BMP: 12/01/16 03:35 12/01/16 03:35 ABG, PT/INR, D-dimer: ABG POC ABG pH 7.467 (7.35-7.45) H 11/17/16 21:22 POC ABG pCO2 38.3 (35-45) 11/17/16 21:22 POC ABG pO2 73 (80-105) L 11/17/16 21:22 POC ABG HCO3 27.7 11/17/16 21:22 POC ABG Total CO2 29 11/17/16 21:22 POC ABG O2 Sat 95 11/17/16 21:22 PT/INR, D-dimer PT 16.8 Sec. (12.2-14.9) H 11/17/16 03:20 INR 1.37 (0.87-1.13) H 11/17/16 03:20 Abnormal lab findings: Abnormal Labs 09/03/16 09/03/16 09/03/16 12:12 15:07 16:20 WBC RBC Hgb Hct MCV MCH MCHC RDW Plt Count Lymph % (Auto) [place] % (Auto) Lymph # [place] # Baso # Seg Neutrophils % Seg Neuts % (Manual) Lymphocytes % (Manual) Monocytes % (Manual) Eosinophils % (Manual) Basophils % (Manual) Nucleated RBC % Seg Neutrophils # Seg Neutrophils # Man Lymphocytes # (Manual) Monocytes # (Manual) Eosinophils # (Manual) PT INR Fibrinogen dRVVT Confirm Interp Factor V Activity POC ABG pH 7.452 H POC ABG pCO2 POC ABG pO2 Sodium Potassium Chloride Carbon Dioxide BUN Creatinine Glucose POC Glucose 178 H Lactic Acid Calcium Phosphorus 2.20 L Magnesium 1.60 L Direct Bilirubin AST ALT Alkaline Phosphatase Lactate Dehydrogenase Troponin T C-Reactive Protein Total Protein Albumin Prealbumin Triglycerides Cholesterol LDL Cholesterol Direct HDL Cholesterol Urine pH Urine WBC (Auto) Urine Creatinine Urine Total Protein Fluid Total Protein Vancomycin Trough Rheumatoid Factor Complement C4 Miscellaneous Test Crossmatch 09/03/16 09/03/16 09/03/16 17:57 17:58 23:50 WBC RBC Hgb Hct MCV MCH MCHC RDW Plt Count Lymph % (Auto) [place] % (Auto) Lymph # [place] # Baso # Seg Neutrophils % Seg Neuts % (Manual) Lymphocytes % (Manual) Monocytes % (Manual) Eosinophils % (Manual) Basophils % (Manual) Nucleated RBC % Seg Neutrophils # Seg Neutrophils # Man Lymphocytes # (Manual) Monocytes # (Manual) Eosinophils # (Manual) PT INR Fibrinogen dRVVT Confirm Interp Factor V Activity POC ABG pH POC ABG pCO2 POC ABG pO2 Sodium Potassium Chloride Carbon Dioxide BUN Creatinine Glucose POC Glucose 162 H 145 H Lactic Acid Calcium Phosphorus 2.30 L Magnesium Direct Bilirubin AST ALT Alkaline Phosphatase Lactate Dehydrogenase Troponin T C-Reactive Protein Total Protein Albumin Prealbumin Triglycerides Cholesterol LDL Cholesterol Direct HDL Cholesterol Urine pH Urine WBC (Auto) Urine Creatinine Urine Total Protein Fluid Total Protein Vancomycin Trough Rheumatoid Factor Complement C4 Miscellaneous Test Crossmatch 09/04/16 09/04/16 09/04/16 03:31 03:31 05:42 WBC RBC Hgb 9.7 L D Hct MCV 72 L MCH 23 L MCHC RDW 17.5 H Plt Count Lymph % (Auto) 11.1 L [place] % (Auto) Lymph # [place] # Baso # Seg Neutrophils % 84.3 H Seg Neuts % (Manual) Lymphocytes % (Manual) Monocytes % (Manual) Eosinophils % (Manual) Basophils % (Manual) Nucleated RBC % Seg Neutrophils # 8.9 H Seg Neutrophils # Man Lymphocytes # (Manual) Monocytes # (Manual) Eosinophils # (Manual) PT INR Fibrinogen dRVVT Confirm Interp Factor V Activity POC ABG pH POC ABG pCO2 POC ABG pO2 Sodium 135 L Potassium 2.9 L* Chloride 97.2 L Carbon Dioxide 19 L BUN Creatinine 1.7 H Glucose 170 H POC Glucose 152 H Lactic Acid Calcium Phosphorus Magnesium Direct Bilirubin AST ALT Alkaline Phosphatase Lactate Dehydrogenase Troponin T C-Reactive Protein Total Protein Albumin Prealbumin Triglycerides 160 H Cholesterol LDL Cholesterol Direct HDL Cholesterol 31 L Urine pH Urine WBC (Auto) Urine Creatinine Urine Total Protein Fluid Total Protein Vancomycin Trough Rheumatoid Factor Complement C4 Miscellaneous Test Crossmatch 09/04/16 09/04/16 09/04/16 11:34 17:46 23:29 WBC RBC Hgb Hct MCV MCH MCHC RDW Plt Count Lymph % (Auto) [place] % (Auto) Lymph # [place] # Baso # Seg Neutrophils % Seg Neuts % (Manual) Lymphocytes % (Manual) Monocytes % (Manual) Eosinophils % (Manual) Basophils % (Manual) Nucleated RBC % Seg Neutrophils # Seg Neutrophils # Man Lymphocytes # (Manual) Monocytes # (Manual) Eosinophils # (Manual) PT INR Fibrinogen dRVVT Confirm Interp Factor V Activity POC ABG pH POC ABG pCO2 POC ABG pO2 Sodium Potassium Chloride Carbon Dioxide BUN Creatinine Glucose POC Glucose 165 H 210 H 139 H Lactic Acid Calcium Phosphorus Magnesium Direct Bilirubin AST ALT Alkaline Phosphatase Lactate Dehydrogenase Troponin T C-Reactive Protein Total Protein Albumin Prealbumin Triglycerides Cholesterol LDL Cholesterol Direct HDL Cholesterol Urine pH Urine WBC (Auto) Urine Creatinine Urine Total Protein Fluid Total Protein Vancomycin Trough Rheumatoid Factor Complement C4 Miscellaneous Test Crossmatch 09/05/16 09/05/16 09/05/16 04:05 04:05 05:38 WBC RBC Hgb Hct MCV 76 L D MCH 23 L MCHC RDW 17.8 H Plt Count Lymph % (Auto) [place] % (Auto) Lymph # [place] # Baso # Seg Neutrophils % Seg Neuts % (Manual) Lymphocytes % (Manual) Monocytes % (Manual) Eosinophils % (Manual) Basophils % (Manual) Nucleated RBC % Seg Neutrophils # Seg Neutrophils # Man Lymphocytes # (Manual) Monocytes # (Manual) Eosinophils # (Manual) PT INR Fibrinogen dRVVT Confirm Interp Factor V Activity POC ABG pH POC ABG pCO2 POC ABG pO2 Sodium 134 L Potassium Chloride Carbon Dioxide 18 L BUN Creatinine 1.8 H Glucose 192 H POC Glucose 175 H Lactic Acid Calcium Phosphorus Magnesium Direct Bilirubin AST ALT Alkaline Phosphatase Lactate Dehydrogenase Troponin T C-Reactive Protein Total Protein Albumin Prealbumin Triglycerides Cholesterol LDL Cholesterol Direct HDL Cholesterol Urine pH Urine WBC (Auto) Urine Creatinine Urine Total Protein Fluid Total Protein Vancomycin Trough Rheumatoid Factor Complement C4 Miscellaneous Test Crossmatch 09/05/16 09/05/16 09/05/16 11:38 17:48 23:22 WBC RBC Hgb Hct MCV MCH MCHC RDW Plt Count Lymph % (Auto) [place] % (Auto) Lymph # [place] # Baso # Seg Neutrophils % Seg Neuts % (Manual) Lymphocytes % (Manual) Monocytes % (Manual) Eosinophils % (Manual) Basophils % (Manual) Nucleated RBC % Seg Neutrophils # Seg Neutrophils # Man Lymphocytes # (Manual) Monocytes # (Manual) Eosinophils # (Manual) PT INR Fibrinogen dRVVT Confirm Interp Factor V Activity POC ABG pH POC ABG pCO2 POC ABG pO2 Sodium Potassium Chloride Carbon Dioxide BUN Creatinine Glucose POC Glucose 164 H 186 H 195 H Lactic Acid Calcium Phosphorus Magnesium Direct Bilirubin AST ALT Alkaline Phosphatase Lactate Dehydrogenase Troponin T C-Reactive Protein Total Protein Albumin Prealbumin Triglycerides Cholesterol LDL Cholesterol Direct HDL Cholesterol Urine pH Urine WBC (Auto) Urine Creatinine Urine Total Protein Fluid Total Protein Vancomycin Trough Rheumatoid Factor Complement C4 Miscellaneous Test Crossmatch 09/06/16 09/06/16 09/06/16 04:12 05:59 07:32 WBC RBC Hgb Hct MCV MCH MCHC RDW Plt Count Lymph % (Auto) [place] % (Auto) Lymph # [place] # Baso # Seg Neutrophils % Seg Neuts % (Manual) Lymphocytes % (Manual) Monocytes % (Manual) Eosinophils % (Manual) Basophils % (Manual) Nucleated RBC % Seg Neutrophils # Seg Neutrophils # Man Lymphocytes # (Manual) Monocytes # (Manual) Eosinophils # (Manual) PT INR Fibrinogen dRVVT Confirm Interp Factor V Activity POC ABG pH 7.514 H POC ABG pCO2 29.1 L POC ABG pO2 72 L Sodium 133 L Potassium 3.4 L Chloride 94.9 L Carbon Dioxide 19 L BUN 30 H Creatinine 2.1 H Glucose 139 H POC Glucose 146 H Lactic Acid Calcium Phosphorus Magnesium Direct Bilirubin AST ALT Alkaline Phosphatase Lactate Dehydrogenase Troponin T C-Reactive Protein Total Protein Albumin Prealbumin Triglycerides Cholesterol LDL Cholesterol Direct HDL Cholesterol Urine pH Urine WBC (Auto) Urine Creatinine Urine Total Protein Fluid Total Protein Vancomycin Trough Rheumatoid Factor Complement C4 Miscellaneous Test Crossmatch 09/06/16 09/06/16 09/06/16 11:57 17:58 19:02 WBC RBC Hgb Hct MCV MCH MCHC RDW Plt Count Lymph % (Auto) [place] % (Auto) Lymph # [place] # Baso # Seg Neutrophils % Seg Neuts % (Manual) Lymphocytes % (Manual) Monocytes % (Manual) Eosinophils % (Manual) Basophils % (Manual) Nucleated RBC % Seg Neutrophils # Seg Neutrophils # Man Lymphocytes # (Manual) Monocytes # (Manual) Eosinophils # (Manual) PT INR Fibrinogen dRVVT Confirm Interp Factor V Activity POC ABG pH 7.465 H POC ABG pCO2 32.0 L POC ABG pO2 Sodium Potassium Chloride Carbon Dioxide BUN Creatinine Glucose POC Glucose 165 H 160 H Lactic Acid Calcium Phosphorus Magnesium Direct Bilirubin AST ALT Alkaline Phosphatase Lactate Dehydrogenase Troponin T C-Reactive Protein Total Protein Albumin Prealbumin Triglycerides Cholesterol LDL Cholesterol Direct HDL Cholesterol Urine pH Urine WBC (Auto) Urine Creatinine Urine Total Protein Fluid Total Protein Vancomycin Trough Rheumatoid Factor Complement C4 Miscellaneous Test Crossmatch 09/06/16 09/07/16 09/07/16 23:45 02:47 02:47 WBC RBC Hgb Hct MCV MCH MCHC RDW Plt Count Lymph % (Auto) [place] % (Auto) Lymph # [place] # Baso # Seg Neutrophils % Seg Neuts % (Manual) Lymphocytes % (Manual) Monocytes % (Manual) Eosinophils % (Manual) Basophils % (Manual) Nucleated RBC % Seg Neutrophils # Seg Neutrophils # Man Lymphocytes # (Manual) Monocytes # (Manual) Eosinophils # (Manual) PT INR Fibrinogen dRVVT Confirm Interp Factor V Activity POC ABG pH POC ABG pCO2 POC ABG pO2 Sodium Potassium Chloride Carbon Dioxide BUN Creatinine Glucose POC Glucose 204 H Lactic Acid Calcium Phosphorus Magnesium Direct Bilirubin AST ALT Alkaline Phosphatase Lactate Dehydrogenase Troponin T C-Reactive Protein Total Protein Albumin Prealbumin Triglycerides Cholesterol LDL Cholesterol Direct HDL Cholesterol Urine pH Urine WBC (Auto) 68.0 H Urine Creatinine 106.1 H Urine Total Protein Fluid Total Protein Vancomycin Trough Rheumatoid Factor Complement C4 Miscellaneous Test Crossmatch 09/07/16 09/07/16 09/07/16 04:50 06:19 06:39 WBC RBC Hgb Hct MCV MCH MCHC RDW Plt Count Lymph % (Auto) [place] % (Auto) Lymph # [place] # Baso # Seg Neutrophils % Seg Neuts % (Manual) Lymphocytes % (Manual) Monocytes % (Manual) Eosinophils % (Manual) Basophils % (Manual) Nucleated RBC % Seg Neutrophils # Seg Neutrophils # Man Lymphocytes # (Manual) Monocytes # (Manual) Eosinophils # (Manual) PT INR Fibrinogen dRVVT Confirm Interp Factor V Activity POC ABG pH 7.457 H POC ABG pCO2 32.1 L POC ABG pO2 76 L Sodium 132 L Potassium Chloride 94.7 L Carbon Dioxide BUN 53 H Creatinine 2.9 H Glucose 151 H POC Glucose 149 H Lactic Acid Calcium Phosphorus Magnesium Direct Bilirubin AST ALT Alkaline Phosphatase Lactate Dehydrogenase Troponin T C-Reactive Protein Total Protein Albumin Prealbumin Triglycerides Cholesterol LDL Cholesterol Direct HDL Cholesterol Urine pH Urine WBC (Auto) Urine Creatinine Urine Total Protein Fluid Total Protein Vancomycin Trough Rheumatoid Factor Complement C4 Miscellaneous Test Crossmatch 09/07/16 09/07/16 09/07/16 09:20 11:43 11:43 WBC 19.4 H RBC Hgb 8.3 L Hct 26.4 L D MCV 72 L D MCH 22 L MCHC RDW 17.9 H Plt Count Lymph % (Auto) 8.5 L [place] % (Auto) Lymph # [place] # 1.0 H Baso # Seg Neutrophils % 85.8 H Seg Neuts % (Manual) Lymphocytes % (Manual) Monocytes % (Manual) Eosinophils % (Manual) Basophils % (Manual) Nucleated RBC % Seg Neutrophils # 16.6 H Seg Neutrophils # Man Lymphocytes # (Manual) Monocytes # (Manual) Eosinophils # (Manual) PT INR Fibrinogen dRVVT Confirm Interp Factor V Activity POC ABG pH POC ABG pCO2 POC ABG pO2 Sodium 134 L Potassium Chloride 97.2 L Carbon Dioxide 20 L BUN 58 H Creatinine 2.9 H Glucose 147 H POC Glucose Lactic Acid Calcium Phosphorus 2.40 L Magnesium 2.40 H Direct Bilirubin AST ALT Alkaline Phosphatase Lactate Dehydrogenase Troponin T C-Reactive Protein Total Protein 5.8 L Albumin 2.2 L Prealbumin Triglycerides Cholesterol LDL Cholesterol Direct HDL Cholesterol Urine pH Urine WBC (Auto) Urine Creatinine Urine Total Protein Fluid Total Protein Vancomycin Trough Rheumatoid Factor Complement C4 58 H Miscellaneous Test Crossmatch 09/07/16 09/07/16 09/07/16 11:50 16:00 17:31 WBC RBC Hgb Hct MCV MCH MCHC RDW Plt Count Lymph % (Auto) [place] % (Auto) Lymph # [place] # Baso # Seg Neutrophils % Seg Neuts % (Manual) Lymphocytes % (Manual) Monocytes % (Manual) Eosinophils % (Manual) Basophils % (Manual) Nucleated RBC % Seg Neutrophils # Seg Neutrophils # Man Lymphocytes # (Manual) Monocytes # (Manual) Eosinophils # (Manual) PT INR Fibrinogen dRVVT Confirm Interp Factor V Activity POC ABG pH POC ABG pCO2 POC ABG pO2 158 H Sodium Potassium Chloride Carbon Dioxide BUN Creatinine Glucose POC Glucose 175 H Lactic Acid Calcium Phosphorus Magnesium Direct Bilirubin AST ALT Alkaline Phosphatase Lactate Dehydrogenase Troponin T C-Reactive Protein Total Protein Albumin Prealbumin Triglycerides Cholesterol LDL Cholesterol Direct HDL Cholesterol Urine pH Urine WBC (Auto) Urine Creatinine 66.3 H Urine Total Protein Fluid Total Protein Vancomycin Trough Rheumatoid Factor Complement C4 Miscellaneous Test Crossmatch 09/07/16 09/08/16 09/08/16 23:50 05:46 06:18 WBC 17.8 H RBC 3.58 L Hgb 8.1 L Hct 25.5 L MCV 71 L MCH 23 L MCHC RDW 18.4 H Plt Count Lymph % (Auto) [place] % (Auto) Lymph # [place] # Baso # Seg Neutrophils % Seg Neuts % (Manual) 92.0 H Lymphocytes % (Manual) 6.0 L Monocytes % (Manual) Eosinophils % (Manual) Basophils % (Manual) Nucleated RBC % Seg Neutrophils # Seg Neutrophils # Man 16.4 H Lymphocytes # (Manual) 1.1 L Monocytes # (Manual) Eosinophils # (Manual) PT INR Fibrinogen dRVVT Confirm Interp Factor V Activity POC ABG pH POC ABG pCO2 34.3 L POC ABG pO2 71 L Sodium Potassium Chloride Carbon Dioxide BUN Creatinine Glucose POC Glucose 216 H Lactic Acid Calcium Phosphorus Magnesium Direct Bilirubin AST ALT Alkaline Phosphatase Lactate Dehydrogenase Troponin T C-Reactive Protein Total Protein Albumin Prealbumin Triglycerides Cholesterol LDL Cholesterol Direct HDL Cholesterol Urine pH Urine WBC (Auto) Urine Creatinine Urine Total Protein Fluid Total Protein Vancomycin Trough Rheumatoid Factor Complement C4 Miscellaneous Test Crossmatch 09/08/16 09/08/16 09/08/16 06:18 06:51 10:55 WBC RBC Hgb Hct MCV MCH MCHC RDW Plt Count Lymph % (Auto) [place] % (Auto) Lymph # [place] # Baso # Seg Neutrophils % Seg Neuts % (Manual) Lymphocytes % (Manual) Monocytes % (Manual) Eosinophils % (Manual) Basophils % (Manual) Nucleated RBC % Seg Neutrophils # Seg Neutrophils # Man Lymphocytes # (Manual) Monocytes # (Manual) Eosinophils # (Manual) PT INR Fibrinogen dRVVT Confirm Interp Factor V Activity POC ABG pH POC ABG pCO2 POC ABG pO2 Sodium 133 L Potassium Chloride 96.9 L Carbon Dioxide 20 L BUN 63 H Creatinine 2.7 H Glucose 195 H POC Glucose 204 H 169 H Lactic Acid Calcium Phosphorus Magnesium Direct Bilirubin AST ALT Alkaline Phosphatase Lactate Dehydrogenase Troponin T C-Reactive Protein Total Protein Albumin Prealbumin Triglycerides Cholesterol LDL Cholesterol Direct HDL Cholesterol Urine pH Urine WBC (Auto) Urine Creatinine Urine Total Protein Fluid Total Protein Vancomycin Trough Rheumatoid Factor Complement C4 Miscellaneous Test Crossmatch 09/08/16 09/08/16 09/08/16 11:48 11:48 11:48 WBC RBC Hgb Hct MCV MCH MCHC RDW Plt Count Lymph % (Auto) [place] % (Auto) Lymph # [place] # Baso # Seg Neutrophils % Seg Neuts % (Manual) Lymphocytes % (Manual) Monocytes % (Manual) Eosinophils % (Manual) Basophils % (Manual) Nucleated RBC % Seg Neutrophils # Seg Neutrophils # Man Lymphocytes # (Manual) Monocytes # (Manual) Eosinophils # (Manual) PT INR Fibrinogen 750 H dRVVT Confirm Interp Factor V Activity POC ABG pH POC ABG pCO2 POC ABG pO2 Sodium Potassium Chloride Carbon Dioxide BUN Creatinine Glucose POC Glucose Lactic Acid Calcium Phosphorus Magnesium Direct Bilirubin AST ALT Alkaline Phosphatase Lactate Dehydrogenase Troponin T C-Reactive Protein 15.70 H Total Protein Albumin Prealbumin Triglycerides Cholesterol LDL Cholesterol Direct HDL Cholesterol Urine pH Urine WBC (Auto) Urine Creatinine Urine Total Protein Fluid Total Protein Vancomycin Trough Rheumatoid Factor 24 H Complement C4 Miscellaneous Test Crossmatch 09/08/16 09/08/16 09/09/16 15:35 18:25 00:24 WBC RBC Hgb Hct MCV MCH MCHC RDW Plt Count Lymph % (Auto) [place] % (Auto) Lymph # [place] # Baso # Seg Neutrophils % Seg Neuts % (Manual) Lymphocytes % (Manual) Monocytes % (Manual) Eosinophils % (Manual) Basophils % (Manual) Nucleated RBC % Seg Neutrophils # Seg Neutrophils # Man Lymphocytes # (Manual) Monocytes # (Manual) Eosinophils # (Manual) PT INR Fibrinogen dRVVT Confirm Interp Factor V Activity 182 H POC ABG pH POC ABG pCO2 POC ABG pO2 Sodium Potassium Chloride Carbon Dioxide BUN Creatinine Glucose POC Glucose 184 H 216 H Lactic Acid Calcium Phosphorus Magnesium Direct Bilirubin AST ALT Alkaline Phosphatase Lactate Dehydrogenase Troponin T C-Reactive Protein Total Protein Albumin Prealbumin Triglycerides Cholesterol LDL Cholesterol Direct HDL Cholesterol Urine pH Urine WBC (Auto) Urine Creatinine Urine Total Protein Fluid Total Protein Vancomycin Trough Rheumatoid Factor Complement C4 Miscellaneous Test Crossmatch 09/09/16 09/09/16 09/09/16 03:00 03:00 04:04 WBC 27.9 H RBC Hgb 8.7 L Hct 28.1 L MCV 72 L MCH 22 L MCHC RDW 18.4 H Plt Count 485 H Lymph % (Auto) [place] % (Auto) Lymph # [place] # Baso # Seg Neutrophils % Seg Neuts % (Manual) 77.0 H Lymphocytes % (Manual) 9.0 L Monocytes % (Manual) Eosinophils % (Manual) Basophils % (Manual) Nucleated RBC % Seg Neutrophils # Seg Neutrophils # Man 21.5 H Lymphocytes # (Manual) Monocytes # (Manual) 2.0 H Eosinophils # (Manual) PT INR Fibrinogen dRVVT Confirm Interp Factor V Activity POC ABG pH POC ABG pCO2 POC ABG pO2 121 H Sodium 135 L Potassium Chloride 96.3 L Carbon Dioxide 21 L BUN 83 H Creatinine 3.0 H Glucose 135 H POC Glucose Lactic Acid Calcium Phosphorus Magnesium Direct Bilirubin AST ALT Alkaline Phosphatase Lactate Dehydrogenase Troponin T C-Reactive Protein Total Protein Albumin Prealbumin Triglycerides Cholesterol LDL Cholesterol Direct HDL Cholesterol Urine pH Urine WBC (Auto) Urine Creatinine Urine Total Protein Fluid Total Protein Vancomycin Trough Rheumatoid Factor Complement C4 Miscellaneous Test Crossmatch 09/09/16 09/09/16 09/09/16 05:41 11:55 14:13 WBC RBC Hgb Hct MCV MCH MCHC RDW Plt Count Lymph % (Auto) [place] % (Auto) Lymph # [place] # Baso # Seg Neutrophils % Seg Neuts % (Manual) Lymphocytes % (Manual) Monocytes % (Manual) Eosinophils % (Manual) Basophils % (Manual) Nucleated RBC % Seg Neutrophils # Seg Neutrophils # Man Lymphocytes # (Manual) Monocytes # (Manual) Eosinophils # (Manual) PT INR Fibrinogen dRVVT Confirm Interp Factor V Activity POC ABG pH POC ABG pCO2 POC ABG pO2 Sodium Potassium Chloride Carbon Dioxide BUN Creatinine Glucose POC Glucose 155 H 186 H Lactic Acid Calcium Phosphorus Magnesium Direct Bilirubin AST ALT Alkaline Phosphatase Lactate Dehydrogenase Troponin T C-Reactive Protein Total Protein Albumin Prealbumin Triglycerides Cholesterol LDL Cholesterol Direct HDL Cholesterol Urine pH Urine WBC (Auto) 25.0 H Urine Creatinine Urine Total Protein Fluid Total Protein Vancomycin Trough Rheumatoid Factor Complement C4 Miscellaneous Test Crossmatch 09/09/16 09/09/16 09/10/16 17:33 23:13 05:09 WBC RBC Hgb Hct MCV MCH MCHC RDW Plt Count Lymph % (Auto) [place] % (Auto) Lymph # [place] # Baso # Seg Neutrophils % Seg Neuts % (Manual) Lymphocytes % (Manual) Monocytes % (Manual) Eosinophils % (Manual) Basophils % (Manual) Nucleated RBC % Seg Neutrophils # Seg Neutrophils # Man Lymphocytes # (Manual) Monocytes # (Manual) Eosinophils # (Manual) PT INR Fibrinogen dRVVT Confirm Interp Factor V Activity POC ABG pH POC ABG pCO2 POC ABG pO2 74 L Sodium Potassium Chloride Carbon Dioxide BUN Creatinine Glucose POC Glucose 211 H 215 H Lactic Acid Calcium Phosphorus Magnesium Direct Bilirubin AST ALT Alkaline Phosphatase Lactate Dehydrogenase Troponin T C-Reactive Protein Total Protein Albumin Prealbumin Triglycerides Cholesterol LDL Cholesterol Direct HDL Cholesterol Urine pH Urine WBC (Auto) Urine Creatinine Urine Total Protein Fluid Total Protein Vancomycin Trough Rheumatoid Factor Complement C4 Miscellaneous Test Crossmatch 09/10/16 09/10/16 09/10/16 05:17 05:17 11:31 WBC 15.8 H RBC 3.25 L Hgb 7.3 L Hct 22.9 L MCV 71 L MCH 23 L MCHC RDW 18.4 H Plt Count Lymph % (Auto) [place] % (Auto) Lymph # [place] # Baso # Seg Neutrophils % Seg Neuts % (Manual) 91.0 H Lymphocytes % (Manual) 4.0 L Monocytes % (Manual) Eosinophils % (Manual) Basophils % (Manual) Nucleated RBC % Seg Neutrophils # Seg Neutrophils # Man 14.4 H Lymphocytes # (Manual) 0.6 L Monocytes # (Manual) Eosinophils # (Manual) PT INR Fibrinogen dRVVT Confirm Interp Factor V Activity POC ABG pH POC ABG pCO2 POC ABG pO2 Sodium Potassium Chloride Carbon Dioxide 21 L BUN 93 H Creatinine 2.9 H Glucose 146 H POC Glucose 188 H Lactic Acid Calcium 8.1 L Phosphorus Magnesium Direct Bilirubin AST ALT Alkaline Phosphatase Lactate Dehydrogenase Troponin T C-Reactive Protein Total Protein Albumin Prealbumin Triglycerides Cholesterol LDL Cholesterol Direct HDL Cholesterol Urine pH Urine WBC (Auto) Urine Creatinine Urine Total Protein Fluid Total Protein Vancomycin Trough Rheumatoid Factor Complement C4 Miscellaneous Test Crossmatch 09/10/16 09/10/16 09/10/16 13:17 17:20 23:32 WBC RBC Hgb Hct MCV MCH MCHC RDW Plt Count Lymph % (Auto) [place] % (Auto) Lymph # [place] # Baso # Seg Neutrophils % Seg Neuts % (Manual) Lymphocytes % (Manual) Monocytes % (Manual) Eosinophils % (Manual) Basophils % (Manual) Nucleated RBC % Seg Neutrophils # Seg Neutrophils # Man Lymphocytes # (Manual) Monocytes # (Manual) Eosinophils # (Manual) PT INR Fibrinogen dRVVT Confirm Interp Factor V Activity POC ABG pH POC ABG pCO2 POC ABG pO2 Sodium Potassium Chloride Carbon Dioxide BUN Creatinine Glucose POC Glucose 199 H 186 H Lactic Acid Calcium Phosphorus Magnesium Direct Bilirubin AST ALT Alkaline Phosphatase Lactate Dehydrogenase Troponin T C-Reactive Protein Total Protein Albumin Prealbumin Triglycerides Cholesterol LDL Cholesterol Direct HDL Cholesterol Urine pH Urine WBC (Auto) Urine Creatinine Urine Total Protein Fluid Total Protein Vancomycin Trough Rheumatoid Factor Complement C4 Miscellaneous Test Crossmatch See Detail 09/11/16 09/11/16 09/11/16 05:10 05:10 05:17 WBC 28.4 H RBC Hgb 9.2 L Hct 29.3 L D MCV 73 L MCH 23 L MCHC RDW 18.9 H Plt Count 452 H Lymph % (Auto) [place] % (Auto) Lymph # [place] # Baso # Seg Neutrophils % Seg Neuts % (Manual) 89.5 H Lymphocytes % (Manual) 2.0 L Monocytes % (Manual) Eosinophils % (Manual) Basophils % (Manual) Nucleated RBC % Seg Neutrophils # Seg Neutrophils # Man 25.4 H Lymphocytes # (Manual) 0.6 L Monocytes # (Manual) 1.3 H Eosinophils # (Manual) PT INR Fibrinogen dRVVT Confirm Interp Factor V Activity POC ABG pH POC ABG pCO2 POC ABG pO2 Sodium 136 L Potassium Chloride Carbon Dioxide 18 L BUN 107 H Creatinine 2.6 H Glucose 187 H POC Glucose 230 H Lactic Acid Calcium 8.3 L Phosphorus Magnesium Direct Bilirubin AST ALT Alkaline Phosphatase Lactate Dehydrogenase Troponin T C-Reactive Protein Total Protein Albumin Prealbumin Triglycerides Cholesterol LDL Cholesterol Direct HDL Cholesterol Urine pH Urine WBC (Auto) Urine Creatinine Urine Total Protein Fluid Total Protein Vancomycin Trough Rheumatoid Factor Complement C4 Miscellaneous Test Crossmatch 09/11/16 09/11/16 09/11/16 05:55 12:02 17:32 WBC RBC Hgb Hct MCV MCH MCHC RDW Plt Count Lymph % (Auto) [place] % (Auto) Lymph # [place] # Baso # Seg Neutrophils % Seg Neuts % (Manual) Lymphocytes % (Manual) Monocytes % (Manual) Eosinophils % (Manual) Basophils % (Manual) Nucleated RBC % Seg Neutrophils # Seg Neutrophils # Man Lymphocytes # (Manual) Monocytes # (Manual) Eosinophils # (Manual) PT INR Fibrinogen dRVVT Confirm Interp Factor V Activity POC ABG pH POC ABG pCO2 33.8 L POC ABG pO2 Sodium Potassium Chloride Carbon Dioxide BUN Creatinine Glucose POC Glucose 191 H 239 H Lactic Acid Calcium Phosphorus Magnesium Direct Bilirubin AST ALT Alkaline Phosphatase Lactate Dehydrogenase Troponin T C-Reactive Protein Total Protein Albumin Prealbumin Triglycerides Cholesterol LDL Cholesterol Direct HDL Cholesterol Urine pH Urine WBC (Auto) Urine Creatinine Urine Total Protein Fluid Total Protein Vancomycin Trough Rheumatoid Factor Complement C4 Miscellaneous Test Crossmatch 09/11/16 09/12/16 09/12/16 23:52 05:09 05:32 WBC RBC Hgb Hct MCV MCH MCHC RDW Plt Count Lymph % (Auto) [place] % (Auto) Lymph # [place] # Baso # Seg Neutrophils % Seg Neuts % (Manual) Lymphocytes % (Manual) Monocytes % (Manual) Eosinophils % (Manual) Basophils % (Manual) Nucleated RBC % Seg Neutrophils # Seg Neutrophils # Man Lymphocytes # (Manual) Monocytes # (Manual) Eosinophils # (Manual) PT INR Fibrinogen dRVVT Confirm Interp Factor V Activity POC ABG pH POC ABG pCO2 34.6 L POC ABG pO2 Sodium Potassium Chloride Carbon Dioxide BUN Creatinine Glucose POC Glucose 265 H 184 H Lactic Acid Calcium Phosphorus Magnesium Direct Bilirubin AST ALT Alkaline Phosphatase Lactate Dehydrogenase Troponin T C-Reactive Protein Total Protein Albumin Prealbumin Triglycerides Cholesterol LDL Cholesterol Direct HDL Cholesterol Urine pH Urine WBC (Auto) Urine Creatinine Urine Total Protein Fluid Total Protein Vancomycin Trough Rheumatoid Factor Complement C4 Miscellaneous Test Crossmatch 09/12/16 09/12/16 09/12/16 06:45 06:45 07:22 WBC 31.7 H RBC 3.54 L Hgb 8.3 L Hct 25.9 L MCV 73 L MCH 23 L MCHC RDW 18.9 H Plt Count Lymph % (Auto) [place] % (Auto) Lymph # [place] # Baso # Seg Neutrophils % Seg Neuts % (Manual) 88.5 H Lymphocytes % (Manual) 4.5 L Monocytes % (Manual) Eosinophils % (Manual) Basophils % (Manual) Nucleated RBC % Seg Neutrophils # Seg Neutrophils # Man 28.1 H Lymphocytes # (Manual) Monocytes # (Manual) 1.0 H Eosinophils # (Manual) PT INR Fibrinogen dRVVT Confirm Interp Factor V Activity POC ABG pH POC ABG pCO2 POC ABG pO2 Sodium Potassium Chloride Carbon Dioxide 20 L BUN 115 H Creatinine 2.7 H Glucose 165 H POC Glucose Lactic Acid Calcium 8.0 L Phosphorus Magnesium Direct Bilirubin AST ALT Alkaline Phosphatase Lactate Dehydrogenase Troponin T C-Reactive Protein Total Protein Albumin Prealbumin Triglycerides 217 H Cholesterol LDL Cholesterol Direct HDL Cholesterol Urine pH Urine WBC (Auto) Urine Creatinine Urine Total Protein Fluid Total Protein Vancomycin Trough Rheumatoid Factor Complement C4 Miscellaneous Test Crossmatch 09/12/16 09/12/16 09/12/16 07:22 09:59 12:21 WBC RBC Hgb Hct MCV MCH MCHC RDW Plt Count Lymph % (Auto) [place] % (Auto) Lymph # [place] # Baso # Seg Neutrophils % Seg Neuts % (Manual) Lymphocytes % (Manual) Monocytes % (Manual) Eosinophils % (Manual) Basophils % (Manual) Nucleated RBC % Seg Neutrophils # Seg Neutrophils # Man Lymphocytes # (Manual) Monocytes # (Manual) Eosinophils # (Manual) PT INR Fibrinogen dRVVT Confirm Interp Positive H Factor V Activity POC ABG pH POC ABG pCO2 POC ABG pO2 Sodium Potassium Chloride Carbon Dioxide BUN Creatinine Glucose POC Glucose 224 H Lactic Acid Calcium Phosphorus Magnesium Direct Bilirubin AST ALT Alkaline Phosphatase Lactate Dehydrogenase Troponin T C-Reactive Protein 1.70 H Total Protein Albumin Prealbumin Triglycerides Cholesterol LDL Cholesterol Direct HDL Cholesterol Urine pH Urine WBC (Auto) Urine Creatinine Urine Total Protein Fluid Total Protein Vancomycin Trough Rheumatoid Factor Complement C4 Miscellaneous Test Crossmatch 09/12/16 09/12/16 09/13/16 16:51 23:28 04:00 WBC 45.0 H* RBC Hgb 9.4 L Hct MCV 75 L MCH 23 L MCHC RDW 19.0 H Plt Count 470 H Lymph % (Auto) [place] % (Auto) Lymph # [place] # Baso # Seg Neutrophils % Seg Neuts % (Manual) 89.0 H Lymphocytes % (Manual) 5.0 L Monocytes % (Manual) Eosinophils % (Manual) Basophils % (Manual) Nucleated RBC % Seg Neutrophils # Seg Neutrophils # Man 40.1 H Lymphocytes # (Manual) Monocytes # (Manual) Eosinophils # (Manual) PT INR Fibrinogen dRVVT Confirm Interp Factor V Activity POC ABG pH POC ABG pCO2 POC ABG pO2 Sodium Potassium Chloride Carbon Dioxide BUN Creatinine Glucose POC Glucose 169 H 150 H Lactic Acid Calcium Phosphorus Magnesium Direct Bilirubin AST ALT Alkaline Phosphatase Lactate Dehydrogenase Troponin T C-Reactive Protein Total Protein Albumin Prealbumin Triglycerides Cholesterol LDL Cholesterol Direct HDL Cholesterol Urine pH Urine WBC (Auto) Urine Creatinine Urine Total Protein Fluid Total Protein Vancomycin Trough Rheumatoid Factor Complement C4 Miscellaneous Test Crossmatch 09/13/16 09/13/16 09/13/16 04:00 11:26 17:31 WBC RBC Hgb Hct MCV MCH MCHC RDW Plt Count Lymph % (Auto) [place] % (Auto) Lymph # [place] # Baso # Seg Neutrophils % Seg Neuts % (Manual) Lymphocytes % (Manual) Monocytes % (Manual) Eosinophils % (Manual) Basophils % (Manual) Nucleated RBC % Seg Neutrophils # Seg Neutrophils # Man Lymphocytes # (Manual) Monocytes # (Manual) Eosinophils # (Manual) PT INR Fibrinogen dRVVT Confirm Interp Factor V Activity POC ABG pH POC ABG pCO2 POC ABG pO2 Sodium Potassium Chloride Carbon Dioxide 20 L BUN 116 H Creatinine 3.0 H Glucose 172 H POC Glucose 140 H 183 H Lactic Acid Calcium Phosphorus Magnesium Direct Bilirubin AST ALT Alkaline Phosphatase Lactate Dehydrogenase Troponin T C-Reactive Protein Total Protein 6.2 L Albumin 2.9 L Prealbumin Triglycerides Cholesterol LDL Cholesterol Direct HDL Cholesterol Urine pH Urine WBC (Auto) Urine Creatinine Urine Total Protein Fluid Total Protein Vancomycin Trough Rheumatoid Factor Complement C4 Miscellaneous Test Crossmatch 09/13/16 09/14/16 09/14/16 23:23 04:06 04:07 WBC 29.4 H RBC Hgb 8.9 L Hct 27.3 L MCV 75 L MCH 24 L MCHC RDW 19.1 H Plt Count Lymph % (Auto) [place] % (Auto) Lymph # [place] # Baso # Seg Neutrophils % Seg Neuts % (Manual) 84.0 H Lymphocytes % (Manual) 6.0 L Monocytes % (Manual) 9.0 H Eosinophils % (Manual) Basophils % (Manual) Nucleated RBC % Seg Neutrophils # Seg Neutrophils # Man 24.7 H Lymphocytes # (Manual) Monocytes # (Manual) 2.6 H Eosinophils # (Manual) PT INR Fibrinogen dRVVT Confirm Interp Factor V Activity POC ABG pH 7.342 L POC ABG pCO2 POC ABG pO2 116 H Sodium Potassium Chloride Carbon Dioxide BUN Creatinine Glucose POC Glucose 154 H Lactic Acid Calcium Phosphorus Magnesium Direct Bilirubin AST ALT Alkaline Phosphatase Lactate Dehydrogenase Troponin T C-Reactive Protein Total Protein Albumin Prealbumin Triglycerides Cholesterol LDL Cholesterol Direct HDL Cholesterol Urine pH Urine WBC (Auto) Urine Creatinine Urine Total Protein Fluid Total Protein Vancomycin Trough Rheumatoid Factor Complement C4 Miscellaneous Test Crossmatch 09/14/16 09/14/16 09/14/16 04:07 05:29 12:19 WBC RBC Hgb Hct MCV MCH MCHC RDW Plt Count Lymph % (Auto) [place] % (Auto) Lymph # [place] # Baso # Seg Neutrophils % Seg Neuts % (Manual) Lymphocytes % (Manual) Monocytes % (Manual) Eosinophils % (Manual) Basophils % (Manual) Nucleated RBC % Seg Neutrophils # Seg Neutrophils # Man Lymphocytes # (Manual) Monocytes # (Manual) Eosinophils # (Manual) PT INR Fibrinogen dRVVT Confirm Interp Factor V Activity POC ABG pH POC ABG pCO2 POC ABG pO2 Sodium 136 L Potassium Chloride Carbon Dioxide 18 L BUN 121 H Creatinine 2.8 H Glucose 214 H POC Glucose 239 H 181 H Lactic Acid Calcium Phosphorus Magnesium Direct Bilirubin AST ALT Alkaline Phosphatase Lactate Dehydrogenase Troponin T C-Reactive Protein Total Protein Albumin Prealbumin Triglycerides Cholesterol LDL Cholesterol Direct HDL Cholesterol Urine pH Urine WBC (Auto) Urine Creatinine Urine Total Protein Fluid Total Protein Vancomycin Trough Rheumatoid Factor Complement C4 Miscellaneous Test Crossmatch 09/14/16 09/14/16 09/15/16 18:12 23:37 05:00 WBC 26.1 H RBC 3.05 L Hgb 7.2 L Hct 22.9 L MCV 75 L MCH 24 L MCHC RDW 19.0 H Plt Count Lymph % (Auto) [place] % (Auto) Lymph # [place] # Baso # Seg Neutrophils % Seg Neuts % (Manual) Lymphocytes % (Manual) Monocytes % (Manual) Eosinophils % (Manual) Basophils % (Manual) Nucleated RBC % Seg Neutrophils # Seg Neutrophils # Man Lymphocytes # (Manual) Monocytes # (Manual) Eosinophils # (Manual) PT INR Fibrinogen dRVVT Confirm Interp Factor V Activity POC ABG pH POC ABG pCO2 POC ABG pO2 Sodium Potassium Chloride Carbon Dioxide BUN Creatinine Glucose POC Glucose 266 H 154 H Lactic Acid Calcium Phosphorus Magnesium Direct Bilirubin AST ALT Alkaline Phosphatase Lactate Dehydrogenase Troponin T C-Reactive Protein Total Protein Albumin Prealbumin Triglycerides Cholesterol LDL Cholesterol Direct HDL Cholesterol Urine pH Urine WBC (Auto) Urine Creatinine Urine Total Protein Fluid Total Protein Vancomycin Trough Rheumatoid Factor Complement C4 Miscellaneous Test Crossmatch 09/15/16 09/15/16 09/15/16 05:00 05:17 12:45 WBC RBC Hgb Hct MCV MCH MCHC RDW Plt Count Lymph % (Auto) [place] % (Auto) Lymph # [place] # Baso # Seg Neutrophils % Seg Neuts % (Manual) Lymphocytes % (Manual) Monocytes % (Manual) Eosinophils % (Manual) Basophils % (Manual) Nucleated RBC % Seg Neutrophils # Seg Neutrophils # Man Lymphocytes # (Manual) Monocytes # (Manual) Eosinophils # (Manual) PT INR Fibrinogen dRVVT Confirm Interp Factor V Activity POC ABG pH POC ABG pCO2 POC ABG pO2 Sodium Potassium 5.2 H Chloride Carbon Dioxide 18 L BUN 139 H Creatinine 3.7 H Glucose 227 H POC Glucose 226 H 244 H Lactic Acid Calcium 8.3 L Phosphorus Magnesium Direct Bilirubin AST ALT Alkaline Phosphatase Lactate Dehydrogenase Troponin T C-Reactive Protein Total Protein Albumin Prealbumin Triglycerides Cholesterol LDL Cholesterol Direct HDL Cholesterol Urine pH Urine WBC (Auto) Urine Creatinine Urine Total Protein Fluid Total Protein Vancomycin Trough Rheumatoid Factor Complement C4 Miscellaneous Test Crossmatch 09/15/16 09/15/16 09/15/16 14:32 17:33 23:35 WBC RBC Hgb Hct MCV MCH MCHC RDW Plt Count Lymph % (Auto) [place] % (Auto) Lymph # [place] # Baso # Seg Neutrophils % Seg Neuts % (Manual) Lymphocytes % (Manual) Monocytes % (Manual) Eosinophils % (Manual) Basophils % (Manual) Nucleated RBC % Seg Neutrophils # Seg Neutrophils # Man Lymphocytes # (Manual) Monocytes # (Manual) Eosinophils # (Manual) PT INR Fibrinogen dRVVT Confirm Interp Factor V Activity POC ABG pH POC ABG pCO2 27.7 L POC ABG pO2 120 H Sodium Potassium Chloride Carbon Dioxide BUN Creatinine Glucose POC Glucose 232 H 167 H Lactic Acid Calcium Phosphorus Magnesium Direct Bilirubin AST ALT Alkaline Phosphatase Lactate Dehydrogenase Troponin T C-Reactive Protein Total Protein Albumin Prealbumin Triglycerides Cholesterol LDL Cholesterol Direct HDL Cholesterol Urine pH Urine WBC (Auto) Urine Creatinine Urine Total Protein Fluid Total Protein Vancomycin Trough Rheumatoid Factor Complement C4 Miscellaneous Test Crossmatch 09/16/16 09/16/16 09/16/16 03:58 10:27 10:27 WBC 19.0 H RBC 2.77 L Hgb 6.5 L Hct 20.9 L MCV 76 L MCH 23 L MCHC RDW 19.3 H Plt Count Lymph % (Auto) 11.0 L [place] % (Auto) Lymph # [place] # 1.1 H Baso # Seg Neutrophils % 82.5 H Seg Neuts % (Manual) Lymphocytes % (Manual) Monocytes % (Manual) Eosinophils % (Manual) Basophils % (Manual) Nucleated RBC % Seg Neutrophils # 15.7 H Seg Neutrophils # Man Lymphocytes # (Manual) Monocytes # (Manual) Eosinophils # (Manual) PT INR Fibrinogen dRVVT Confirm Interp Factor V Activity POC ABG pH POC ABG pCO2 POC ABG pO2 Sodium Potassium Chloride 109.3 H Carbon Dioxide 18 L BUN 139 H Creatinine 4.1 H Glucose 144 H POC Glucose 146 H Lactic Acid Calcium 8.1 L Phosphorus Magnesium Direct Bilirubin AST ALT Alkaline Phosphatase Lactate Dehydrogenase Troponin T C-Reactive Protein Total Protein Albumin Prealbumin Triglycerides Cholesterol LDL Cholesterol Direct HDL Cholesterol Urine pH Urine WBC (Auto) Urine Creatinine Urine Total Protein Fluid Total Protein Vancomycin Trough Rheumatoid Factor Complement C4 Miscellaneous Test Crossmatch 09/16/16 09/16/16 09/16/16 12:04 12:10 13:55 WBC RBC Hgb Hct MCV MCH MCHC RDW Plt Count Lymph % (Auto) [place] % (Auto) Lymph # [place] # Baso # Seg Neutrophils % Seg Neuts % (Manual) Lymphocytes % (Manual) Monocytes % (Manual) Eosinophils % (Manual) Basophils % (Manual) Nucleated RBC % Seg Neutrophils # Seg Neutrophils # Man Lymphocytes # (Manual) Monocytes # (Manual) Eosinophils # (Manual) PT INR Fibrinogen dRVVT Confirm Interp Factor V Activity POC ABG pH POC ABG pCO2 32.9 L POC ABG pO2 Sodium Potassium Chloride Carbon Dioxide BUN Creatinine Glucose POC Glucose 185 H Lactic Acid Calcium Phosphorus Magnesium Direct Bilirubin AST ALT Alkaline Phosphatase Lactate Dehydrogenase Troponin T C-Reactive Protein Total Protein Albumin Prealbumin Triglycerides Cholesterol LDL Cholesterol Direct HDL Cholesterol Urine pH Urine WBC (Auto) Urine Creatinine Urine Total Protein Fluid Total Protein Vancomycin Trough Rheumatoid Factor Complement C4 Miscellaneous Test Crossmatch See Detail 09/16/16 09/16/16 09/16/16 17:55 19:19 23:48 WBC RBC Hgb Hct MCV MCH MCHC RDW Plt Count Lymph % (Auto) [place] % (Auto) Lymph # [place] # Baso # Seg Neutrophils % Seg Neuts % (Manual) Lymphocytes % (Manual) Monocytes % (Manual) Eosinophils % (Manual) Basophils % (Manual) Nucleated RBC % Seg Neutrophils # Seg Neutrophils # Man Lymphocytes # (Manual) Monocytes # (Manual) Eosinophils # (Manual) PT INR Fibrinogen dRVVT Confirm Interp Factor V Activity POC ABG pH POC ABG pCO2 POC ABG pO2 Sodium Potassium Chloride Carbon Dioxide BUN Creatinine Glucose POC Glucose 222 H 107 H Lactic Acid Calcium Phosphorus Magnesium Direct Bilirubin AST ALT Alkaline Phosphatase Lactate Dehydrogenase Troponin T C-Reactive Protein Total Protein Albumin Prealbumin Triglycerides Cholesterol LDL Cholesterol Direct HDL Cholesterol Urine pH Urine WBC (Auto) Urine Creatinine 47.4 H Urine Total Protein 16 H Fluid Total Protein Vancomycin Trough Rheumatoid Factor Complement C4 Miscellaneous Test Crossmatch 09/17/16 09/17/16 09/17/16 03:45 03:45 04:55 WBC 19.6 H RBC 3.41 L Hgb 8.5 L Hct 26.7 L MCV 78 L MCH 25 L MCHC RDW 19.9 H Plt Count Lymph % (Auto) 9.3 L [place] % (Auto) Lymph # [place] # 1.2 H Baso # Seg Neutrophils % 83.9 H Seg Neuts % (Manual) Lymphocytes % (Manual) Monocytes % (Manual) Eosinophils % (Manual) Basophils % (Manual) Nucleated RBC % Seg Neutrophils # 16.4 H Seg Neutrophils # Man Lymphocytes # (Manual) Monocytes # (Manual) Eosinophils # (Manual) PT INR Fibrinogen dRVVT Confirm Interp Factor V Activity POC ABG pH POC ABG pCO2 POC ABG pO2 Sodium 146 H Potassium 5.1 H Chloride 110.9 H Carbon Dioxide 16 L BUN 146 H Creatinine 4.0 H Glucose 108 H POC Glucose 133 H Lactic Acid Calcium Phosphorus Magnesium 3.00 H Direct Bilirubin AST ALT Alkaline Phosphatase Lactate Dehydrogenase Troponin T C-Reactive Protein Total Protein Albumin Prealbumin Triglycerides Cholesterol LDL Cholesterol Direct HDL Cholesterol Urine pH Urine WBC (Auto) Urine Creatinine Urine Total Protein Fluid Total Protein Vancomycin Trough Rheumatoid Factor Complement C4 Miscellaneous Test Crossmatch 09/17/16 09/17/16 09/17/16 11:15 17:33 23:47 WBC RBC Hgb Hct MCV MCH MCHC RDW Plt Count Lymph % (Auto) [place] % (Auto) Lymph # [place] # Baso # Seg Neutrophils % Seg Neuts % (Manual) Lymphocytes % (Manual) Monocytes % (Manual) Eosinophils % (Manual) Basophils % (Manual) Nucleated RBC % Seg Neutrophils # Seg Neutrophils # Man Lymphocytes # (Manual) Monocytes # (Manual) Eosinophils # (Manual) PT INR Fibrinogen dRVVT Confirm Interp Factor V Activity POC ABG pH POC ABG pCO2 POC ABG pO2 Sodium Potassium Chloride Carbon Dioxide BUN Creatinine Glucose POC Glucose 176 H 246 H 148 H Lactic Acid Calcium Phosphorus Magnesium Direct Bilirubin AST ALT Alkaline Phosphatase Lactate Dehydrogenase Troponin T C-Reactive Protein Total Protein Albumin Prealbumin Triglycerides Cholesterol LDL Cholesterol Direct HDL Cholesterol Urine pH Urine WBC (Auto) Urine Creatinine Urine Total Protein Fluid Total Protein Vancomycin Trough Rheumatoid Factor Complement C4 Miscellaneous Test Crossmatch 09/18/16 09/18/16 09/18/16 05:33 08:31 08:31 WBC 18.0 H RBC 3.17 L Hgb 9.0 L Hct 25.7 L MCV MCH MCHC 35 H RDW 20.4 H Plt Count Lymph % (Auto) [place] % (Auto) Lymph # [place] # Baso # Seg Neutrophils % Seg Neuts % (Manual) Lymphocytes % (Manual) Monocytes % (Manual) Eosinophils % (Manual) Basophils % (Manual) Nucleated RBC % Seg Neutrophils # Seg Neutrophils # Man Lymphocytes # (Manual) Monocytes # (Manual) Eosinophils # (Manual) PT INR Fibrinogen dRVVT Confirm Interp Factor V Activity POC ABG pH POC ABG pCO2 POC ABG pO2 Sodium Potassium Chloride Carbon Dioxide 15 L BUN 124 H Creatinine 3.8 H Glucose POC Glucose 120 H Lactic Acid Calcium 8.1 L Phosphorus Magnesium Direct Bilirubin AST ALT Alkaline Phosphatase Lactate Dehydrogenase Troponin T C-Reactive Protein Total Protein Albumin Prealbumin Triglycerides Cholesterol LDL Cholesterol Direct HDL Cholesterol Urine pH Urine WBC (Auto) Urine Creatinine Urine Total Protein Fluid Total Protein Vancomycin Trough Rheumatoid Factor Complement C4 Miscellaneous Test Crossmatch 09/18/16 09/18/16 09/18/16 12:03 15:34 17:50 WBC RBC Hgb Hct MCV MCH MCHC RDW Plt Count Lymph % (Auto) [place] % (Auto) Lymph # [place] # Baso # Seg Neutrophils % Seg Neuts % (Manual) Lymphocytes % (Manual) Monocytes % (Manual) Eosinophils % (Manual) Basophils % (Manual) Nucleated RBC % Seg Neutrophils # Seg Neutrophils # Man Lymphocytes # (Manual) Monocytes # (Manual) Eosinophils # (Manual) PT INR Fibrinogen dRVVT Confirm Interp Factor V Activity POC ABG pH POC ABG pCO2 25.7 L POC ABG pO2 66 L Sodium Potassium Chloride Carbon Dioxide BUN Creatinine Glucose POC Glucose 156 H 220 H Lactic Acid Calcium Phosphorus Magnesium Direct Bilirubin AST ALT Alkaline Phosphatase Lactate Dehydrogenase Troponin T C-Reactive Protein Total Protein Albumin Prealbumin Triglycerides Cholesterol LDL Cholesterol Direct HDL Cholesterol Urine pH Urine WBC (Auto) Urine Creatinine Urine Total Protein Fluid Total Protein Vancomycin Trough Rheumatoid Factor Complement C4 Miscellaneous Test Crossmatch 09/19/16 09/19/16 09/19/16 06:21 09:50 09:50 WBC 17.1 H RBC 3.49 L Hgb 9.0 L Hct 28.1 L MCV MCH 26 L MCHC RDW 20.8 H Plt Count Lymph % (Auto) 11.5 L [place] % (Auto) 7.5 H Lymph # [place] # 1.3 H Baso # Seg Neutrophils % 79.8 H Seg Neuts % (Manual) Lymphocytes % (Manual) Monocytes % (Manual) Eosinophils % (Manual) Basophils % (Manual) Nucleated RBC % Seg Neutrophils # 13.7 H Seg Neutrophils # Man Lymphocytes # (Manual) Monocytes # (Manual) Eosinophils # (Manual) PT INR Fibrinogen dRVVT Confirm Interp Factor V Activity POC ABG pH POC ABG pCO2 POC ABG pO2 Sodium Potassium Chloride 108.6 H Carbon Dioxide 15 L BUN 125 H Creatinine 4.1 H Glucose 124 H POC Glucose 119 H Lactic Acid Calcium Phosphorus Magnesium Direct Bilirubin AST ALT Alkaline Phosphatase Lactate Dehydrogenase Troponin T C-Reactive Protein Total Protein Albumin Prealbumin Triglycerides Cholesterol LDL Cholesterol Direct HDL Cholesterol Urine pH Urine WBC (Auto) Urine Creatinine Urine Total Protein Fluid Total Protein Vancomycin Trough Rheumatoid Factor Complement C4 Miscellaneous Test Crossmatch 09/19/16 09/19/16 09/19/16 11:25 17:53 23:36 WBC RBC Hgb Hct MCV MCH MCHC RDW Plt Count Lymph % (Auto) [place] % (Auto) Lymph # [place] # Baso # Seg Neutrophils % Seg Neuts % (Manual) Lymphocytes % (Manual) Monocytes % (Manual) Eosinophils % (Manual) Basophils % (Manual) Nucleated RBC % Seg Neutrophils # Seg Neutrophils # Man Lymphocytes # (Manual) Monocytes # (Manual) Eosinophils # (Manual) PT INR Fibrinogen dRVVT Confirm Interp Factor V Activity POC ABG pH POC ABG pCO2 POC ABG pO2 Sodium Potassium Chloride Carbon Dioxide BUN Creatinine Glucose POC Glucose 160 H 245 H 121 H Lactic Acid Calcium Phosphorus Magnesium Direct Bilirubin AST ALT Alkaline Phosphatase Lactate Dehydrogenase Troponin T C-Reactive Protein Total Protein Albumin Prealbumin Triglycerides Cholesterol LDL Cholesterol Direct HDL Cholesterol Urine pH Urine WBC (Auto) Urine Creatinine Urine Total Protein Fluid Total Protein Vancomycin Trough Rheumatoid Factor Complement C4 Miscellaneous Test Crossmatch 09/20/16 09/20/16 09/20/16 04:10 04:10 04:10 WBC 17.0 H RBC 3.21 L Hgb 8.2 L Hct 25.5 L MCV MCH 26 L MCHC RDW 20.9 H Plt Count Lymph % (Auto) [place] % (Auto) Lymph # [place] # Baso # Seg Neutrophils % Seg Neuts % (Manual) Lymphocytes % (Manual) Monocytes % (Manual) Eosinophils % (Manual) Basophils % (Manual) Nucleated RBC % Seg Neutrophils # Seg Neutrophils # Man Lymphocytes # (Manual) Monocytes # (Manual) Eosinophils # (Manual) PT INR Fibrinogen dRVVT Confirm Interp Factor V Activity POC ABG pH POC ABG pCO2 POC ABG pO2 Sodium Potassium Chloride 111.0 H Carbon Dioxide 16 L BUN 129 H Creatinine 3.7 H Glucose 115 H POC Glucose Lactic Acid Calcium 8.2 L Phosphorus Magnesium Direct Bilirubin AST ALT Alkaline Phosphatase Lactate Dehydrogenase Troponin T C-Reactive Protein Total Protein Albumin Prealbumin Triglycerides 243 H Cholesterol LDL Cholesterol Direct HDL Cholesterol Urine pH Urine WBC (Auto) Urine Creatinine Urine Total Protein Fluid Total Protein Vancomycin Trough Rheumatoid Factor Complement C4 Miscellaneous Test Crossmatch 09/20/16 09/20/16 09/20/16 05:40 11:52 16:50 WBC RBC Hgb Hct MCV MCH MCHC RDW Plt Count Lymph % (Auto) [place] % (Auto) Lymph # [place] # Baso # Seg Neutrophils % Seg Neuts % (Manual) Lymphocytes % (Manual) Monocytes % (Manual) Eosinophils % (Manual) Basophils % (Manual) Nucleated RBC % Seg Neutrophils # Seg Neutrophils # Man Lymphocytes # (Manual) Monocytes # (Manual) Eosinophils # (Manual) PT INR Fibrinogen dRVVT Confirm Interp Factor V Activity POC ABG pH POC ABG pCO2 POC ABG pO2 Sodium Potassium Chloride Carbon Dioxide BUN Creatinine Glucose POC Glucose 131 H 183 H 236 H Lactic Acid Calcium Phosphorus Magnesium Direct Bilirubin AST ALT Alkaline Phosphatase Lactate Dehydrogenase Troponin T C-Reactive Protein Total Protein Albumin Prealbumin Triglycerides Cholesterol LDL Cholesterol Direct HDL Cholesterol Urine pH Urine WBC (Auto) Urine Creatinine Urine Total Protein Fluid Total Protein Vancomycin Trough Rheumatoid Factor Complement C4 Miscellaneous Test Crossmatch 09/20/16 09/21/16 09/21/16 23:51 03:30 04:44 WBC RBC Hgb Hct MCV MCH MCHC RDW Plt Count Lymph % (Auto) [place] % (Auto) Lymph # [place] # Baso # Seg Neutrophils % Seg Neuts % (Manual) Lymphocytes % (Manual) Monocytes % (Manual) Eosinophils % (Manual) Basophils % (Manual) Nucleated RBC % Seg Neutrophils # Seg Neutrophils # Man Lymphocytes # (Manual) Monocytes # (Manual) Eosinophils # (Manual) PT INR Fibrinogen dRVVT Confirm Interp Factor V Activity POC ABG pH POC ABG pCO2 POC ABG pO2 Sodium Potassium Chloride Carbon Dioxide BUN Creatinine Glucose POC Glucose 114 H 141 H Lactic Acid Calcium Phosphorus Magnesium 2.70 H Direct Bilirubin AST ALT Alkaline Phosphatase Lactate Dehydrogenase Troponin T C-Reactive Protein Total Protein Albumin Prealbumin Triglycerides Cholesterol LDL Cholesterol Direct HDL Cholesterol Urine pH Urine WBC (Auto) Urine Creatinine Urine Total Protein Fluid Total Protein Vancomycin Trough Rheumatoid Factor Complement C4 Miscellaneous Test Crossmatch 09/21/16 09/21/16 09/21/16 07:45 07:45 10:01 WBC 13.8 H RBC 2.94 L Hgb 7.5 L Hct 23.5 L MCV MCH 26 L MCHC RDW 21.2 H Plt Count Lymph % (Auto) 6.9 L [place] % (Auto) 9.4 H Lymph # 0.9 L [place] # 1.3 H Baso # Seg Neutrophils % 83.2 H Seg Neuts % (Manual) Lymphocytes % (Manual) Monocytes % (Manual) Eosinophils % (Manual) Basophils % (Manual) Nucleated RBC % Seg Neutrophils # 11.5 H Seg Neutrophils # Man Lymphocytes # (Manual) Monocytes # (Manual) Eosinophils # (Manual) PT INR Fibrinogen dRVVT Confirm Interp Factor V Activity POC ABG pH 7.308 L POC ABG pCO2 31.9 L POC ABG pO2 148 H Sodium 147 H Potassium Chloride 114.2 H Carbon Dioxide 15 L BUN 120 H Creatinine 3.9 H Glucose 156 H POC Glucose Lactic Acid Calcium 8.2 L Phosphorus Magnesium Direct Bilirubin AST ALT Alkaline Phosphatase Lactate Dehydrogenase Troponin T C-Reactive Protein Total Protein Albumin Prealbumin Triglycerides Cholesterol LDL Cholesterol Direct HDL Cholesterol Urine pH Urine WBC (Auto) Urine Creatinine Urine Total Protein Fluid Total Protein Vancomycin Trough Rheumatoid Factor Complement C4 Miscellaneous Test Crossmatch 09/21/16 09/21/16 09/21/16 12:00 12:03 13:00 WBC RBC Hgb Hct MCV MCH MCHC RDW Plt Count Lymph % (Auto) [place] % (Auto) Lymph # [place] # Baso # Seg Neutrophils % Seg Neuts % (Manual) Lymphocytes % (Manual) Monocytes % (Manual) Eosinophils % (Manual) Basophils % (Manual) Nucleated RBC % Seg Neutrophils # Seg Neutrophils # Man Lymphocytes # (Manual) Monocytes # (Manual) Eosinophils # (Manual) PT INR Fibrinogen dRVVT Confirm Interp Factor V Activity POC ABG pH POC ABG pCO2 POC ABG pO2 Sodium Potassium Chloride Carbon Dioxide BUN Creatinine Glucose POC Glucose 163 H Lactic Acid Calcium Phosphorus Magnesium Direct Bilirubin AST ALT Alkaline Phosphatase Lactate Dehydrogenase Troponin T C-Reactive Protein Total Protein Albumin Prealbumin Triglycerides Cholesterol LDL Cholesterol Direct HDL Cholesterol Urine pH Urine WBC (Auto) Urine Creatinine 54.8 H Urine Total Protein Fluid Total Protein Vancomycin Trough 2.3 L Rheumatoid Factor Complement C4 Miscellaneous Test Crossmatch 09/21/16 09/21/16 09/22/16 16:51 23:17 06:27 WBC RBC Hgb Hct MCV MCH MCHC RDW Plt Count Lymph % (Auto) [place] % (Auto) Lymph # [place] # Baso # Seg Neutrophils % Seg Neuts % (Manual) Lymphocytes % (Manual) Monocytes % (Manual) Eosinophils % (Manual) Basophils % (Manual) Nucleated RBC % Seg Neutrophils # Seg Neutrophils # Man Lymphocytes # (Manual) Monocytes # (Manual) Eosinophils # (Manual) PT INR Fibrinogen dRVVT Confirm Interp Factor V Activity POC ABG pH POC ABG pCO2 POC ABG pO2 Sodium Potassium Chloride Carbon Dioxide BUN Creatinine Glucose POC Glucose 206 H 114 H 115 H Lactic Acid Calcium Phosphorus Magnesium Direct Bilirubin AST ALT Alkaline Phosphatase Lactate Dehydrogenase Troponin T C-Reactive Protein Total Protein Albumin Prealbumin Triglycerides Cholesterol LDL Cholesterol Direct HDL Cholesterol Urine pH Urine WBC (Auto) Urine Creatinine Urine Total Protein Fluid Total Protein Vancomycin Trough Rheumatoid Factor Complement C4 Miscellaneous Test Crossmatch 09/22/16 09/22/16 09/22/16 07:50 07:50 12:00 WBC 17.8 H RBC 3.04 L Hgb 8.0 L Hct 24.7 L MCV MCH 26 L MCHC RDW 21.6 H Plt Count Lymph % (Auto) [place] % (Auto) Lymph # [place] # Baso # Seg Neutrophils % Seg Neuts % (Manual) Lymphocytes % (Manual) Monocytes % (Manual) Eosinophils % (Manual) Basophils % (Manual) Nucleated RBC % Seg Neutrophils # Seg Neutrophils # Man Lymphocytes # (Manual) Monocytes # (Manual) Eosinophils # (Manual) PT INR Fibrinogen dRVVT Confirm Interp Factor V Activity POC ABG pH POC ABG pCO2 POC ABG pO2 Sodium 150 H Potassium Chloride 118.2 H Carbon Dioxide 14 L BUN 111 H Creatinine 3.7 H Glucose 157 H POC Glucose 183 H Lactic Acid Calcium Phosphorus Magnesium Direct Bilirubin AST ALT Alkaline Phosphatase Lactate Dehydrogenase Troponin T C-Reactive Protein Total Protein Albumin Prealbumin Triglycerides Cholesterol LDL Cholesterol Direct HDL Cholesterol Urine pH Urine WBC (Auto) Urine Creatinine Urine Total Protein Fluid Total Protein Vancomycin Trough Rheumatoid Factor Complement C4 Miscellaneous Test Crossmatch 09/22/16 09/22/16 09/23/16 17:29 23:10 05:00 WBC 19.2 H RBC 3.13 L Hgb 8.0 L Hct 25.2 L MCV MCH 26 L MCHC RDW 22.1 H Plt Count Lymph % (Auto) [place] % (Auto) Lymph # [place] # Baso # Seg Neutrophils % Seg Neuts % (Manual) 92.0 H Lymphocytes % (Manual) 3.0 L Monocytes % (Manual) Eosinophils % (Manual) Basophils % (Manual) Nucleated RBC % Seg Neutrophils # Seg Neutrophils # Man 17.7 H Lymphocytes # (Manual) 0.6 L Monocytes # (Manual) Eosinophils # (Manual) PT INR Fibrinogen dRVVT Confirm Interp Factor V Activity POC ABG pH POC ABG pCO2 POC ABG pO2 Sodium Potassium Chloride Carbon Dioxide BUN Creatinine Glucose POC Glucose 197 H 169 H Lactic Acid Calcium Phosphorus Magnesium Direct Bilirubin AST ALT Alkaline Phosphatase Lactate Dehydrogenase Troponin T C-Reactive Protein Total Protein Albumin Prealbumin Triglycerides Cholesterol LDL Cholesterol Direct HDL Cholesterol Urine pH Urine WBC (Auto) Urine Creatinine Urine Total Protein Fluid Total Protein Vancomycin Trough Rheumatoid Factor Complement C4 Miscellaneous Test Crossmatch 09/23/16 09/23/16 09/23/16 05:00 05:00 05:10 WBC RBC Hgb Hct MCV MCH MCHC RDW Plt Count Lymph % (Auto) [place] % (Auto) Lymph # [place] # Baso # Seg Neutrophils % Seg Neuts % (Manual) Lymphocytes % (Manual) Monocytes % (Manual) Eosinophils % (Manual) Basophils % (Manual) Nucleated RBC % Seg Neutrophils # Seg Neutrophils # Man Lymphocytes # (Manual) Monocytes # (Manual) Eosinophils # (Manual) PT INR Fibrinogen dRVVT Confirm Interp Factor V Activity POC ABG pH POC ABG pCO2 POC ABG pO2 Sodium 147 H Potassium 3.2 L Chloride 115.7 H Carbon Dioxide 13 L BUN 111 H Creatinine 3.8 H Glucose 194 H POC Glucose 188 H Lactic Acid Calcium 7.3 L D Phosphorus Magnesium Direct Bilirubin AST ALT Alkaline Phosphatase Lactate Dehydrogenase Troponin T C-Reactive Protein 3.20 H Total Protein Albumin Prealbumin Triglycerides Cholesterol LDL Cholesterol Direct HDL Cholesterol Urine pH Urine WBC (Auto) Urine Creatinine Urine Total Protein Fluid Total Protein Vancomycin Trough Rheumatoid Factor Complement C4 Miscellaneous Test Crossmatch 09/23/16 09/23/16 09/23/16 11:37 12:29 18:01 WBC RBC Hgb Hct MCV MCH MCHC RDW Plt Count Lymph % (Auto) [place] % (Auto) Lymph # [place] # Baso # Seg Neutrophils % Seg Neuts % (Manual) Lymphocytes % (Manual) Monocytes % (Manual) Eosinophils % (Manual) Basophils % (Manual) Nucleated RBC % Seg Neutrophils # Seg Neutrophils # Man Lymphocytes # (Manual) Monocytes # (Manual) Eosinophils # (Manual) PT INR Fibrinogen dRVVT Confirm Interp Factor V Activity POC ABG pH POC ABG pCO2 18.9 L POC ABG pO2 143 H Sodium Potassium Chloride Carbon Dioxide BUN Creatinine Glucose POC Glucose 153 H 108 H Lactic Acid Calcium Phosphorus Magnesium Direct Bilirubin AST ALT Alkaline Phosphatase Lactate Dehydrogenase Troponin T C-Reactive Protein Total Protein Albumin Prealbumin Triglycerides Cholesterol LDL Cholesterol Direct HDL Cholesterol Urine pH Urine WBC (Auto) Urine Creatinine Urine Total Protein Fluid Total Protein Vancomycin Trough Rheumatoid Factor Complement C4 Miscellaneous Test Crossmatch 09/23/16 09/23/16 09/24/16 21:19 23:43 05:16 WBC RBC Hgb Hct MCV MCH MCHC RDW Plt Count Lymph % (Auto) [place] % (Auto) Lymph # [place] # Baso # Seg Neutrophils % Seg Neuts % (Manual) Lymphocytes % (Manual) Monocytes % (Manual) Eosinophils % (Manual) Basophils % (Manual) Nucleated RBC % Seg Neutrophils # Seg Neutrophils # Man Lymphocytes # (Manual) Monocytes # (Manual) Eosinophils # (Manual) PT INR Fibrinogen dRVVT Confirm Interp Factor V Activity POC ABG pH POC ABG pCO2 17.3 L POC ABG pO2 112 H Sodium Potassium Chloride Carbon Dioxide BUN Creatinine Glucose POC Glucose 143 H 164 H Lactic Acid Calcium Phosphorus Magnesium Direct Bilirubin AST ALT Alkaline Phosphatase Lactate Dehydrogenase Troponin T C-Reactive Protein Total Protein Albumin Prealbumin Triglycerides Cholesterol LDL Cholesterol Direct HDL Cholesterol Urine pH Urine WBC (Auto) Urine Creatinine Urine Total Protein Fluid Total Protein Vancomycin Trough Rheumatoid Factor Complement C4 Miscellaneous Test Crossmatch 09/24/16 09/24/16 09/24/16 05:21 11:58 17:06 WBC RBC Hgb Hct MCV MCH MCHC RDW Plt Count Lymph % (Auto) [place] % (Auto) Lymph # [place] # Baso # Seg Neutrophils % Seg Neuts % (Manual) Lymphocytes % (Manual) Monocytes % (Manual) Eosinophils % (Manual) Basophils % (Manual) Nucleated RBC % Seg Neutrophils # Seg Neutrophils # Man Lymphocytes # (Manual) Monocytes # (Manual) Eosinophils # (Manual) PT INR Fibrinogen dRVVT Confirm Interp Factor V Activity POC ABG pH POC ABG pCO2 POC ABG pO2 Sodium Potassium Chloride Carbon Dioxide 10 L BUN 103 H Creatinine 4.3 H Glucose 163 H POC Glucose 173 H 167 H Lactic Acid Calcium 6.5 L Phosphorus Magnesium Direct Bilirubin AST ALT Alkaline Phosphatase Lactate Dehydrogenase Troponin T C-Reactive Protein Total Protein Albumin Prealbumin Triglycerides Cholesterol LDL Cholesterol Direct HDL Cholesterol Urine pH Urine WBC (Auto) Urine Creatinine Urine Total Protein Fluid Total Protein Vancomycin Trough Rheumatoid Factor Complement C4 Miscellaneous Test Crossmatch 09/24/16 09/24/16 09/24/16 20:15 21:02 23:48 WBC RBC Hgb Hct MCV MCH MCHC RDW Plt Count Lymph % (Auto) [place] % (Auto) Lymph # [place] # Baso # Seg Neutrophils % Seg Neuts % (Manual) Lymphocytes % (Manual) Monocytes % (Manual) Eosinophils % (Manual) Basophils % (Manual) Nucleated RBC % Seg Neutrophils # Seg Neutrophils # Man Lymphocytes # (Manual) Monocytes # (Manual) Eosinophils # (Manual) PT INR Fibrinogen dRVVT Confirm Interp Factor V Activity POC ABG pH 7.288 L POC ABG pCO2 30.2 L 21.5 L POC ABG pO2 32 L 39 L Sodium Potassium Chloride Carbon Dioxide BUN Creatinine Glucose POC Glucose 109 H Lactic Acid Calcium Phosphorus Magnesium Direct Bilirubin AST ALT Alkaline Phosphatase Lactate Dehydrogenase Troponin T C-Reactive Protein Total Protein Albumin Prealbumin Triglycerides Cholesterol LDL Cholesterol Direct HDL Cholesterol Urine pH Urine WBC (Auto) Urine Creatinine Urine Total Protein Fluid Total Protein Vancomycin Trough Rheumatoid Factor Complement C4 Miscellaneous Test Crossmatch 09/25/16 09/25/16 09/25/16 04:20 04:20 04:20 WBC RBC 2.58 L Hgb 7.0 L Hct 21.0 L MCV MCH 27 L MCHC RDW 23.8 H Plt Count Lymph % (Auto) [place] % (Auto) Lymph # [place] # Baso # Seg Neutrophils % Seg Neuts % (Manual) Lymphocytes % (Manual) 12.0 L Monocytes % (Manual) Eosinophils % (Manual) 7.0 H Basophils % (Manual) 2.0 H Nucleated RBC % Seg Neutrophils # Seg Neutrophils # Man Lymphocytes # (Manual) 0.9 L Monocytes # (Manual) Eosinophils # (Manual) 0.5 H PT INR Fibrinogen dRVVT Confirm Interp Factor V Activity POC ABG pH POC ABG pCO2 POC ABG pO2 Sodium Potassium Chloride Carbon Dioxide 15 L BUN 72 H Creatinine 3.8 H Glucose POC Glucose Lactic Acid Calcium 6.0 L Phosphorus 4.60 H Magnesium 1.60 L Direct Bilirubin AST ALT Alkaline Phosphatase Lactate Dehydrogenase Troponin T C-Reactive Protein Total Protein Albumin Prealbumin Triglycerides Cholesterol LDL Cholesterol Direct HDL Cholesterol Urine pH Urine WBC (Auto) Urine Creatinine Urine Total Protein Fluid Total Protein Vancomycin Trough Rheumatoid Factor Complement C4 Miscellaneous Test Crossmatch 09/25/16 09/25/16 09/25/16 04:57 08:02 10:30 WBC RBC Hgb Hct MCV MCH MCHC RDW Plt Count Lymph % (Auto) [place] % (Auto) Lymph # [place] # Baso # Seg Neutrophils % Seg Neuts % (Manual) Lymphocytes % (Manual) Monocytes % (Manual) Eosinophils % (Manual) Basophils % (Manual) Nucleated RBC % Seg Neutrophils # Seg Neutrophils # Man Lymphocytes # (Manual) Monocytes # (Manual) Eosinophils # (Manual) PT INR Fibrinogen dRVVT Confirm Interp Factor V Activity POC ABG pH POC ABG pCO2 24.7 L POC ABG pO2 152 H Sodium Potassium Chloride Carbon Dioxide BUN Creatinine Glucose POC Glucose 113 H Lactic Acid Calcium Phosphorus Magnesium Direct Bilirubin AST ALT Alkaline Phosphatase Lactate Dehydrogenase Troponin T C-Reactive Protein Total Protein Albumin Prealbumin Triglycerides Cholesterol LDL Cholesterol Direct HDL Cholesterol Urine pH Urine WBC (Auto) Urine Creatinine Urine Total Protein Fluid Total Protein Vancomycin Trough Rheumatoid Factor Complement C4 Miscellaneous Test Crossmatch See Detail 09/25/16 09/25/16 09/25/16 12:05 17:44 23:47 WBC RBC Hgb Hct MCV MCH MCHC RDW Plt Count Lymph % (Auto) [place] % (Auto) Lymph # [place] # Baso # Seg Neutrophils % Seg Neuts % (Manual) Lymphocytes % (Manual) Monocytes % (Manual) Eosinophils % (Manual) Basophils % (Manual) Nucleated RBC % Seg Neutrophils # Seg Neutrophils # Man Lymphocytes # (Manual) Monocytes # (Manual) Eosinophils # (Manual) PT INR Fibrinogen dRVVT Confirm Interp Factor V Activity POC ABG pH POC ABG pCO2 POC ABG pO2 Sodium Potassium Chloride Carbon Dioxide BUN Creatinine Glucose POC Glucose 117 H 119 H 150 H Lactic Acid Calcium Phosphorus Magnesium Direct Bilirubin AST ALT Alkaline Phosphatase Lactate Dehydrogenase Troponin T C-Reactive Protein Total Protein Albumin Prealbumin Triglycerides Cholesterol LDL Cholesterol Direct HDL Cholesterol Urine pH Urine WBC (Auto) Urine Creatinine Urine Total Protein Fluid Total Protein Vancomycin Trough Rheumatoid Factor Complement C4 Miscellaneous Test Crossmatch 09/26/16 09/26/16 09/26/16 04:25 04:25 04:25 WBC RBC 2.65 L Hgb 7.4 L Hct 21.6 L MCV MCH MCHC RDW 22.5 H Plt Count Lymph % (Auto) [place] % (Auto) Lymph # [place] # Baso # Seg Neutrophils % Seg Neuts % (Manual) Lymphocytes % (Manual) 6.0 L Monocytes % (Manual) Eosinophils % (Manual) 11.0 H Basophils % (Manual) Nucleated RBC % Seg Neutrophils # Seg Neutrophils # Man Lymphocytes # (Manual) 0.4 L Monocytes # (Manual) Eosinophils # (Manual) 0.6 H PT INR Fibrinogen dRVVT Confirm Interp Factor V Activity POC ABG pH POC ABG pCO2 POC ABG pO2 Sodium Potassium Chloride 97.0 L Carbon Dioxide 19 L BUN 43 H Creatinine 2.6 H Glucose 130 H POC Glucose Lactic Acid 4.40 H* Calcium 6.7 L Phosphorus Magnesium Direct Bilirubin AST ALT Alkaline Phosphatase Lactate Dehydrogenase Troponin T C-Reactive Protein Total Protein Albumin Prealbumin Triglycerides Cholesterol LDL Cholesterol Direct HDL Cholesterol Urine pH Urine WBC (Auto) Urine Creatinine Urine Total Protein Fluid Total Protein Vancomycin Trough Rheumatoid Factor Complement C4 Miscellaneous Test Crossmatch 09/26/16 09/26/16 09/26/16 05:20 11:44 12:12 WBC RBC Hgb Hct MCV MCH MCHC RDW Plt Count Lymph % (Auto) [place] % (Auto) Lymph # [place] # Baso # Seg Neutrophils % Seg Neuts % (Manual) Lymphocytes % (Manual) Monocytes % (Manual) Eosinophils % (Manual) Basophils % (Manual) Nucleated RBC % Seg Neutrophils # Seg Neutrophils # Man Lymphocytes # (Manual) Monocytes # (Manual) Eosinophils # (Manual) PT INR Fibrinogen dRVVT Confirm Interp Factor V Activity POC ABG pH POC ABG pCO2 27.0 L POC ABG pO2 69 L Sodium Potassium Chloride Carbon Dioxide BUN Creatinine Glucose POC Glucose 121 H 128 H Lactic Acid Calcium Phosphorus Magnesium Direct Bilirubin AST ALT Alkaline Phosphatase Lactate Dehydrogenase Troponin T C-Reactive Protein Total Protein Albumin Prealbumin Triglycerides Cholesterol LDL Cholesterol Direct HDL Cholesterol Urine pH Urine WBC (Auto) Urine Creatinine Urine Total Protein Fluid Total Protein Vancomycin Trough Rheumatoid Factor Complement C4 Miscellaneous Test Crossmatch 09/26/16 09/26/16 09/27/16 18:31 23:40 08:20 WBC RBC Hgb Hct MCV MCH MCHC RDW Plt Count Lymph % (Auto) [place] % (Auto) Lymph # [place] # Baso # Seg Neutrophils % Seg Neuts % (Manual) Lymphocytes % (Manual) Monocytes % (Manual) Eosinophils % (Manual) Basophils % (Manual) Nucleated RBC % Seg Neutrophils # Seg Neutrophils # Man Lymphocytes # (Manual) Monocytes # (Manual) Eosinophils # (Manual) PT INR Fibrinogen dRVVT Confirm Interp Factor V Activity POC ABG pH POC ABG pCO2 POC ABG pO2 Sodium Potassium Chloride Carbon Dioxide BUN Creatinine Glucose POC Glucose 120 H 133 H Lactic Acid 4.10 H* Calcium Phosphorus Magnesium Direct Bilirubin AST ALT Alkaline Phosphatase Lactate Dehydrogenase Troponin T C-Reactive Protein Total Protein Albumin Prealbumin Triglycerides Cholesterol LDL Cholesterol Direct HDL Cholesterol Urine pH Urine WBC (Auto) Urine Creatinine Urine Total Protein Fluid Total Protein Vancomycin Trough Rheumatoid Factor Complement C4 Miscellaneous Test Crossmatch 09/27/16 09/27/16 09/27/16 11:23 15:00 18:15 WBC RBC Hgb Hct MCV MCH MCHC RDW Plt Count Lymph % (Auto) [place] % (Auto) Lymph # [place] # Baso # Seg Neutrophils % Seg Neuts % (Manual) Lymphocytes % (Manual) Monocytes % (Manual) Eosinophils % (Manual) Basophils % (Manual) Nucleated RBC % Seg Neutrophils # Seg Neutrophils # Man Lymphocytes # (Manual) Monocytes # (Manual) Eosinophils # (Manual) PT INR Fibrinogen dRVVT Confirm Interp Factor V Activity POC ABG pH 7.459 H POC ABG pCO2 27.1 L POC ABG pO2 140 H Sodium Potassium Chloride Carbon Dioxide BUN Creatinine Glucose POC Glucose 114 H 127 H Lactic Acid Calcium Phosphorus Magnesium Direct Bilirubin AST ALT Alkaline Phosphatase Lactate Dehydrogenase Troponin T C-Reactive Protein Total Protein Albumin Prealbumin Triglycerides Cholesterol LDL Cholesterol Direct HDL Cholesterol Urine pH Urine WBC (Auto) Urine Creatinine Urine Total Protein Fluid Total Protein Vancomycin Trough Rheumatoid Factor Complement C4 Miscellaneous Test Crossmatch 09/27/16 09/27/16 09/28/16 Unknown Unknown 03:45 WBC RBC 2.49 L Hgb 6.8 L Hct 20.7 L MCV MCH 27 L MCHC RDW 22.1 H Plt Count Lymph % (Auto) [place] % (Auto) Lymph # [place] # Baso # Seg Neutrophils % Seg Neuts % (Manual) 32.0 L Lymphocytes % (Manual) 12.0 L Monocytes % (Manual) 11.0 H Eosinophils % (Manual) 10.0 H Basophils % (Manual) Nucleated RBC % Seg Neutrophils # Seg Neutrophils # Man Lymphocytes # (Manual) 1.0 L Monocytes # (Manual) 0.9 H Eosinophils # (Manual) 0.8 H PT INR Fibrinogen dRVVT Confirm Interp Factor V Activity POC ABG pH POC ABG pCO2 POC ABG pO2 Sodium 135 L 135 L Potassium 3.5 L Chloride 93.6 L 94.4 L Carbon Dioxide 17 L 21 L BUN 45 H 28 H Creatinine 3.3 H 2.5 H Glucose 106 H POC Glucose Lactic Acid Calcium 7.3 L 7.1 L Phosphorus Magnesium Direct Bilirubin AST ALT Alkaline Phosphatase Lactate Dehydrogenase Troponin T C-Reactive Protein Total Protein Albumin Prealbumin Triglycerides Cholesterol LDL Cholesterol Direct HDL Cholesterol Urine pH Urine WBC (Auto) Urine Creatinine Urine Total Protein Fluid Total Protein Vancomycin Trough Rheumatoid Factor Complement C4 Miscellaneous Test Crossmatch 09/28/16 09/28/16 09/28/16 03:45 07:25 11:58 WBC 13.3 H RBC 3.01 L Hgb 8.4 L Hct 25.0 L MCV MCH MCHC RDW 20.5 H Plt Count 128 L Lymph % (Auto) [place] % (Auto) Lymph # [place] # Baso # Seg Neutrophils % Seg Neuts % (Manual) Lymphocytes % (Manual) 7.0 L Monocytes % (Manual) Eosinophils % (Manual) 6.0 H Basophils % (Manual) Nucleated RBC % Seg Neutrophils # Seg Neutrophils # Man Lymphocytes # (Manual) 0.9 L Monocytes # (Manual) Eosinophils # (Manual) 0.8 H PT INR Fibrinogen dRVVT Confirm Interp Factor V Activity POC ABG pH POC ABG pCO2 POC ABG pO2 Sodium Potassium Chloride Carbon Dioxide BUN Creatinine Glucose POC Glucose 121 H Lactic Acid 4.50 H* Calcium Phosphorus Magnesium Direct Bilirubin AST ALT Alkaline Phosphatase Lactate Dehydrogenase Troponin T C-Reactive Protein Total Protein Albumin Prealbumin Triglycerides Cholesterol LDL Cholesterol Direct HDL Cholesterol Urine pH Urine WBC (Auto) Urine Creatinine Urine Total Protein Fluid Total Protein Vancomycin Trough Rheumatoid Factor Complement C4 Miscellaneous Test Crossmatch 09/29/16 09/29/16 09/29/16 06:45 06:45 06:45 WBC 14.9 H RBC 2.74 L Hgb 7.6 L Hct 23.2 L MCV MCH MCHC RDW 20.5 H Plt Count 81 L Lymph % (Auto) [place] % (Auto) Lymph # [place] # Baso # Seg Neutrophils % Seg Neuts % (Manual) 81.0 H Lymphocytes % (Manual) 4.0 L Monocytes % (Manual) Eosinophils % (Manual) Basophils % (Manual) Nucleated RBC % Seg Neutrophils # Seg Neutrophils # Man 12.1 H Lymphocytes # (Manual) 0.6 L Monocytes # (Manual) Eosinophils # (Manual) PT INR Fibrinogen dRVVT Confirm Interp Factor V Activity POC ABG pH POC ABG pCO2 POC ABG pO2 Sodium 133 L Potassium 3.4 L Chloride 92.5 L Carbon Dioxide 21 L BUN 33 H Creatinine 3.0 H Glucose POC Glucose Lactic Acid Calcium 6.6 L Phosphorus Magnesium 1.40 L Direct Bilirubin 0.9 H AST ALT Alkaline Phosphatase Lactate Dehydrogenase Troponin T C-Reactive Protein Total Protein 4.3 L Albumin 1.3 L Prealbumin Triglycerides Cholesterol LDL Cholesterol Direct HDL Cholesterol Urine pH Urine WBC (Auto) Urine Creatinine Urine Total Protein Fluid Total Protein Vancomycin Trough Rheumatoid Factor Complement C4 Miscellaneous Test Crossmatch 09/29/16 09/29/16 09/30/16 17:52 20:12 00:07 WBC RBC Hgb Hct MCV MCH MCHC RDW Plt Count Lymph % (Auto) [place] % (Auto) Lymph # [place] # Baso # Seg Neutrophils % Seg Neuts % (Manual) Lymphocytes % (Manual) Monocytes % (Manual) Eosinophils % (Manual) Basophils % (Manual) Nucleated RBC % Seg Neutrophils # Seg Neutrophils # Man Lymphocytes # (Manual) Monocytes # (Manual) Eosinophils # (Manual) PT INR Fibrinogen dRVVT Confirm Interp Factor V Activity POC ABG pH POC ABG pCO2 POC ABG pO2 Sodium Potassium Chloride Carbon Dioxide BUN Creatinine Glucose POC Glucose 50 L 51 L Lactic Acid Calcium Phosphorus Magnesium Direct Bilirubin AST ALT Alkaline Phosphatase Lactate Dehydrogenase Troponin T 0.204 H* C-Reactive Protein Total Protein Albumin Prealbumin Triglycerides Cholesterol 31 L LDL Cholesterol Direct 4 L HDL Cholesterol 3 L Urine pH Urine WBC (Auto) Urine Creatinine Urine Total Protein Fluid Total Protein Vancomycin Trough Rheumatoid Factor Complement C4 Miscellaneous Test Crossmatch 09/30/16 09/30/16 09/30/16 01:30 05:15 06:10 WBC RBC Hgb Hct MCV MCH MCHC RDW Plt Count Lymph % (Auto) [place] % (Auto) Lymph # [place] # Baso # Seg Neutrophils % Seg Neuts % (Manual) Lymphocytes % (Manual) Monocytes % (Manual) Eosinophils % (Manual) Basophils % (Manual) Nucleated RBC % Seg Neutrophils # Seg Neutrophils # Man Lymphocytes # (Manual) Monocytes # (Manual) Eosinophils # (Manual) PT INR Fibrinogen dRVVT Confirm Interp Factor V Activity POC ABG pH POC ABG pCO2 POC ABG pO2 Sodium 133 L Potassium 3.2 L Chloride 93.2 L Carbon Dioxide 19 L BUN 36 H Creatinine 3.2 H Glucose 104 H POC Glucose 167 H 146 H Lactic Acid Calcium 6.4 L Phosphorus Magnesium 1.60 L Direct Bilirubin AST ALT Alkaline Phosphatase Lactate Dehydrogenase Troponin T C-Reactive Protein Total Protein Albumin Prealbumin Triglycerides Cholesterol LDL Cholesterol Direct HDL Cholesterol Urine pH Urine WBC (Auto) Urine Creatinine Urine Total Protein Fluid Total Protein Vancomycin Trough Rheumatoid Factor Complement C4 Miscellaneous Test Crossmatch 09/30/16 09/30/16 09/30/16 11:26 13:39 18:38 WBC RBC Hgb Hct MCV MCH MCHC RDW Plt Count Lymph % (Auto) [place] % (Auto) Lymph # [place] # Baso # Seg Neutrophils % Seg Neuts % (Manual) Lymphocytes % (Manual) Monocytes % (Manual) Eosinophils % (Manual) Basophils % (Manual) Nucleated RBC % Seg Neutrophils # Seg Neutrophils # Man Lymphocytes # (Manual) Monocytes # (Manual) Eosinophils # (Manual) PT INR Fibrinogen dRVVT Confirm Interp Factor V Activity POC ABG pH 7.479 H POC ABG pCO2 29.8 L POC ABG pO2 117 H Sodium Potassium Chloride Carbon Dioxide BUN Creatinine Glucose POC Glucose 140 H 122 H Lactic Acid Calcium Phosphorus Magnesium Direct Bilirubin AST ALT Alkaline Phosphatase Lactate Dehydrogenase Troponin T C-Reactive Protein Total Protein Albumin Prealbumin Triglycerides Cholesterol LDL Cholesterol Direct HDL Cholesterol Urine pH Urine WBC (Auto) Urine Creatinine Urine Total Protein Fluid Total Protein Vancomycin Trough Rheumatoid Factor Complement C4 Miscellaneous Test Crossmatch 10/01/16 10/01/16 10/01/16 06:00 06:00 12:37 WBC 12.6 H RBC 2.75 L Hgb 7.3 L Hct 23.3 L MCV MCH 27 L MCHC RDW 20.6 H Plt Count 72 L Lymph % (Auto) [place] % (Auto) Lymph # [place] # Baso # Seg Neutrophils % Seg Neuts % (Manual) 31.0 L Lymphocytes % (Manual) 8.0 L Monocytes % (Manual) Eosinophils % (Manual) Basophils % (Manual) Nucleated RBC % 3.0 H Seg Neutrophils # Seg Neutrophils # Man Lymphocytes # (Manual) 1.0 L Monocytes # (Manual) Eosinophils # (Manual) PT INR Fibrinogen dRVVT Confirm Interp Factor V Activity POC ABG pH POC ABG pCO2 POC ABG pO2 Sodium 127 L Potassium Chloride 86.8 L Carbon Dioxide 20 L BUN 42 H Creatinine 3.5 H Glucose POC Glucose 65 L Lactic Acid Calcium 7.0 L Phosphorus Magnesium Direct Bilirubin AST ALT Alkaline Phosphatase Lactate Dehydrogenase Troponin T C-Reactive Protein Total Protein Albumin Prealbumin Triglycerides Cholesterol LDL Cholesterol Direct HDL Cholesterol Urine pH Urine WBC (Auto) Urine Creatinine Urine Total Protein Fluid Total Protein Vancomycin Trough Rheumatoid Factor Complement C4 Miscellaneous Test Crossmatch 10/01/16 10/01/16 10/02/16 17:39 23:32 00:59 WBC RBC Hgb Hct MCV MCH MCHC RDW Plt Count Lymph % (Auto) [place] % (Auto) Lymph # [place] # Baso # Seg Neutrophils % Seg Neuts % (Manual) Lymphocytes % (Manual) Monocytes % (Manual) Eosinophils % (Manual) Basophils % (Manual) Nucleated RBC % Seg Neutrophils # Seg Neutrophils # Man Lymphocytes # (Manual) Monocytes # (Manual) Eosinophils # (Manual) PT INR Fibrinogen dRVVT Confirm Interp Factor V Activity POC ABG pH POC ABG pCO2 POC ABG pO2 Sodium Potassium Chloride Carbon Dioxide BUN Creatinine Glucose POC Glucose 107 H 52 L 145 H Lactic Acid Calcium Phosphorus Magnesium Direct Bilirubin AST ALT Alkaline Phosphatase Lactate Dehydrogenase Troponin T C-Reactive Protein Total Protein Albumin Prealbumin Triglycerides Cholesterol LDL Cholesterol Direct HDL Cholesterol Urine pH Urine WBC (Auto) Urine Creatinine Urine Total Protein Fluid Total Protein Vancomycin Trough Rheumatoid Factor Complement C4 Miscellaneous Test Crossmatch 10/02/16 10/02/16 10/02/16 10:30 10:50 10:50 WBC 14.7 H RBC 2.76 L Hgb 7.4 L Hct 23.6 L MCV MCH 27 L MCHC RDW 20.2 H Plt Count 79 L Lymph % (Auto) [place] % (Auto) Lymph # [place] # Baso # Seg Neutrophils % Seg Neuts % (Manual) 86.0 H Lymphocytes % (Manual) 6.0 L Monocytes % (Manual) Eosinophils % (Manual) Basophils % (Manual) Nucleated RBC % Seg Neutrophils # Seg Neutrophils # Man 12.6 H Lymphocytes # (Manual) 0.9 L Monocytes # (Manual) Eosinophils # (Manual) PT INR Fibrinogen dRVVT Confirm Interp Factor V Activity POC ABG pH 7.486 H POC ABG pCO2 30.1 L POC ABG pO2 108 H Sodium 131 L Potassium 3.4 L Chloride 89.9 L Carbon Dioxide BUN 26 H Creatinine 2.6 H Glucose POC Glucose Lactic Acid Calcium 7.0 L Phosphorus Magnesium Direct Bilirubin AST ALT Alkaline Phosphatase Lactate Dehydrogenase Troponin T C-Reactive Protein Total Protein Albumin Prealbumin Triglycerides Cholesterol LDL Cholesterol Direct HDL Cholesterol Urine pH Urine WBC (Auto) Urine Creatinine Urine Total Protein Fluid Total Protein Vancomycin Trough Rheumatoid Factor Complement C4 Miscellaneous Test Crossmatch 10/02/16 10/03/16 10/03/16 23:45 00:45 05:10 WBC 12.9 H RBC 2.77 L Hgb 7.6 L Hct 23.7 L MCV MCH 27 L MCHC RDW 19.7 H Plt Count 89 L Lymph % (Auto) [place] % (Auto) Lymph # [place] # Baso # Seg Neutrophils % Seg Neuts % (Manual) Lymphocytes % (Manual) 8.0 L Monocytes % (Manual) Eosinophils % (Manual) Basophils % (Manual) Nucleated RBC % Seg Neutrophils # 11.9 H Seg Neutrophils # Man Lymphocytes # (Manual) 1.0 L Monocytes # (Manual) Eosinophils # (Manual) PT INR Fibrinogen dRVVT Confirm Interp Factor V Activity POC ABG pH POC ABG pCO2 POC ABG pO2 Sodium Potassium Chloride Carbon Dioxide BUN Creatinine Glucose POC Glucose 55 L 199 H Lactic Acid Calcium Phosphorus Magnesium Direct Bilirubin AST ALT Alkaline Phosphatase Lactate Dehydrogenase Troponin T C-Reactive Protein Total Protein Albumin Prealbumin Triglycerides Cholesterol LDL Cholesterol Direct HDL Cholesterol Urine pH Urine WBC (Auto) Urine Creatinine Urine Total Protein Fluid Total Protein Vancomycin Trough Rheumatoid Factor Complement C4 Miscellaneous Test Crossmatch 10/03/16 10/03/16 10/03/16 05:10 12:14 13:18 WBC RBC Hgb Hct MCV MCH MCHC RDW Plt Count Lymph % (Auto) [place] % (Auto) Lymph # [place] # Baso # Seg Neutrophils % Seg Neuts % (Manual) Lymphocytes % (Manual) Monocytes % (Manual) Eosinophils % (Manual) Basophils % (Manual) Nucleated RBC % Seg Neutrophils # Seg Neutrophils # Man Lymphocytes # (Manual) Monocytes # (Manual) Eosinophils # (Manual) PT INR Fibrinogen dRVVT Confirm Interp Factor V Activity POC ABG pH POC ABG pCO2 POC ABG pO2 Sodium 129 L Potassium 3.3 L Chloride 88.8 L Carbon Dioxide 20 L BUN 29 H Creatinine 2.8 H Glucose POC Glucose 68 L 127 H Lactic Acid Calcium 7.2 L Phosphorus Magnesium Direct Bilirubin AST ALT Alkaline Phosphatase Lactate Dehydrogenase Troponin T C-Reactive Protein Total Protein Albumin Prealbumin Triglycerides Cholesterol LDL Cholesterol Direct HDL Cholesterol Urine pH Urine WBC (Auto) Urine Creatinine Urine Total Protein Fluid Total Protein Vancomycin Trough Rheumatoid Factor Complement C4 Miscellaneous Test Crossmatch 10/03/16 10/03/16 10/03/16 14:42 18:21 19:09 WBC RBC Hgb Hct MCV MCH MCHC RDW Plt Count Lymph % (Auto) [place] % (Auto) Lymph # [place] # Baso # Seg Neutrophils % Seg Neuts % (Manual) Lymphocytes % (Manual) Monocytes % (Manual) Eosinophils % (Manual) Basophils % (Manual) Nucleated RBC % Seg Neutrophils # Seg Neutrophils # Man Lymphocytes # (Manual) Monocytes # (Manual) Eosinophils # (Manual) PT INR Fibrinogen dRVVT Confirm Interp Factor V Activity POC ABG pH 7.499 H POC ABG pCO2 28.4 L POC ABG pO2 44 L Sodium Potassium Chloride Carbon Dioxide BUN Creatinine Glucose POC Glucose 64 L 205 H Lactic Acid Calcium Phosphorus Magnesium Direct Bilirubin AST ALT Alkaline Phosphatase Lactate Dehydrogenase Troponin T C-Reactive Protein Total Protein Albumin Prealbumin Triglycerides Cholesterol LDL Cholesterol Direct HDL Cholesterol Urine pH Urine WBC (Auto) Urine Creatinine Urine Total Protein Fluid Total Protein Vancomycin Trough Rheumatoid Factor Complement C4 Miscellaneous Test Crossmatch 10/03/16 10/04/16 10/04/16 23:33 04:18 06:30 WBC RBC 2.54 L Hgb 7.1 L Hct 21.7 L MCV MCH MCHC RDW 19.5 H Plt Count 76 L Lymph % (Auto) [place] % (Auto) Lymph # [place] # Baso # Seg Neutrophils % Seg Neuts % (Manual) 88.0 H Lymphocytes % (Manual) 6.0 L Monocytes % (Manual) Eosinophils % (Manual) Basophils % (Manual) Nucleated RBC % Seg Neutrophils # Seg Neutrophils # Man 8.8 H Lymphocytes # (Manual) 0.6 L Monocytes # (Manual) Eosinophils # (Manual) PT INR Fibrinogen dRVVT Confirm Interp Factor V Activity POC ABG pH 7.461 H POC ABG pCO2 33.6 L POC ABG pO2 211 H Sodium Potassium Chloride Carbon Dioxide BUN Creatinine Glucose POC Glucose 136 H Lactic Acid Calcium Phosphorus Magnesium Direct Bilirubin AST ALT Alkaline Phosphatase Lactate Dehydrogenase Troponin T C-Reactive Protein Total Protein Albumin Prealbumin Triglycerides Cholesterol LDL Cholesterol Direct HDL Cholesterol Urine pH Urine WBC (Auto) Urine Creatinine Urine Total Protein Fluid Total Protein Vancomycin Trough Rheumatoid Factor Complement C4 Miscellaneous Test Crossmatch 10/04/16 10/04/16 10/04/16 06:30 11:45 17:54 WBC RBC Hgb Hct MCV MCH MCHC RDW Plt Count Lymph % (Auto) [place] % (Auto) Lymph # [place] # Baso # Seg Neutrophils % Seg Neuts % (Manual) Lymphocytes % (Manual) Monocytes % (Manual) Eosinophils % (Manual) Basophils % (Manual) Nucleated RBC % Seg Neutrophils # Seg Neutrophils # Man Lymphocytes # (Manual) Monocytes # (Manual) Eosinophils # (Manual) PT INR Fibrinogen dRVVT Confirm Interp Factor V Activity POC ABG pH POC ABG pCO2 POC ABG pO2 Sodium 128 L Potassium Chloride 87.4 L Carbon Dioxide 20 L BUN 34 H Creatinine 2.9 H Glucose 127 H POC Glucose 158 H 160 H Lactic Acid Calcium 7.4 L Phosphorus Magnesium Direct Bilirubin AST ALT Alkaline Phosphatase Lactate Dehydrogenase Troponin T C-Reactive Protein Total Protein Albumin Prealbumin Triglycerides Cholesterol LDL Cholesterol Direct HDL Cholesterol Urine pH Urine WBC (Auto) Urine Creatinine Urine Total Protein Fluid Total Protein Vancomycin Trough Rheumatoid Factor Complement C4 Miscellaneous Test Crossmatch 10/04/16 10/05/16 10/05/16 23:25 04:30 05:00 WBC RBC 2.64 L Hgb 7.5 L Hct 22.6 L MCV MCH MCHC RDW 19.3 H Plt Count 80 L Lymph % (Auto) [place] % (Auto) Lymph # [place] # Baso # Seg Neutrophils % Seg Neuts % (Manual) Lymphocytes % (Manual) 12.0 L Monocytes % (Manual) Eosinophils % (Manual) Basophils % (Manual) Nucleated RBC % Seg Neutrophils # Seg Neutrophils # Man Lymphocytes # (Manual) Monocytes # (Manual) Eosinophils # (Manual) PT INR Fibrinogen dRVVT Confirm Interp Factor V Activity POC ABG pH 7.475 H POC ABG pCO2 33.3 L POC ABG pO2 140 H Sodium Potassium Chloride Carbon Dioxide BUN Creatinine Glucose POC Glucose 141 H Lactic Acid Calcium Phosphorus Magnesium Direct Bilirubin AST ALT Alkaline Phosphatase Lactate Dehydrogenase Troponin T C-Reactive Protein Total Protein Albumin Prealbumin Triglycerides Cholesterol LDL Cholesterol Direct HDL Cholesterol Urine pH Urine WBC (Auto) Urine Creatinine Urine Total Protein Fluid Total Protein Vancomycin Trough Rheumatoid Factor Complement C4 Miscellaneous Test Crossmatch 10/05/16 10/05/16 10/05/16 05:00 05:09 12:58 WBC RBC Hgb Hct MCV MCH MCHC RDW Plt Count Lymph % (Auto) [place] % (Auto) Lymph # [place] # Baso # Seg Neutrophils % Seg Neuts % (Manual) Lymphocytes % (Manual) Monocytes % (Manual) Eosinophils % (Manual) Basophils % (Manual) Nucleated RBC % Seg Neutrophils # Seg Neutrophils # Man Lymphocytes # (Manual) Monocytes # (Manual) Eosinophils # (Manual) PT INR Fibrinogen dRVVT Confirm Interp Factor V Activity POC ABG pH POC ABG pCO2 POC ABG pO2 Sodium 131 L Potassium Chloride 94.0 L Carbon Dioxide 20 L BUN 22 H Creatinine 2.0 H Glucose 123 H POC Glucose 166 H 179 H Lactic Acid Calcium 7.7 L Phosphorus 2.20 L D Magnesium Direct Bilirubin AST ALT Alkaline Phosphatase Lactate Dehydrogenase Troponin T C-Reactive Protein Total Protein Albumin Prealbumin Triglycerides Cholesterol LDL Cholesterol Direct HDL Cholesterol Urine pH Urine WBC (Auto) Urine Creatinine Urine Total Protein Fluid Total Protein Vancomycin Trough Rheumatoid Factor Complement C4 Miscellaneous Test Crossmatch 10/05/16 10/05/16 10/05/16 15:50 18:53 23:12 WBC RBC Hgb Hct MCV MCH MCHC RDW Plt Count Lymph % (Auto) [place] % (Auto) Lymph # [place] # Baso # Seg Neutrophils % Seg Neuts % (Manual) Lymphocytes % (Manual) Monocytes % (Manual) Eosinophils % (Manual) Basophils % (Manual) Nucleated RBC % Seg Neutrophils # Seg Neutrophils # Man Lymphocytes # (Manual) Monocytes # (Manual) Eosinophils # (Manual) PT INR Fibrinogen dRVVT Confirm Interp Factor V Activity POC ABG pH POC ABG pCO2 POC ABG pO2 Sodium Potassium Chloride Carbon Dioxide BUN Creatinine Glucose POC Glucose 150 H 164 H Lactic Acid Calcium Phosphorus Magnesium Direct Bilirubin AST ALT Alkaline Phosphatase Lactate Dehydrogenase Troponin T C-Reactive Protein Total Protein Albumin Prealbumin Triglycerides Cholesterol LDL Cholesterol Direct HDL Cholesterol Urine pH Urine WBC (Auto) Urine Creatinine Urine Total Protein Fluid Total Protein Vancomycin Trough Rheumatoid Factor Complement C4 Miscellaneous Test Crossmatch See Detail 10/06/16 10/06/16 10/06/16 03:50 03:50 04:53 WBC RBC 3.00 L Hgb 8.6 L Hct 25.8 L MCV MCH MCHC RDW 17.9 H Plt Count 65 L Lymph % (Auto) [place] % (Auto) Lymph # [place] # Baso # Seg Neutrophils % Seg Neuts % (Manual) 30.0 L Lymphocytes % (Manual) 5.0 L Monocytes % (Manual) Eosinophils % (Manual) Basophils % (Manual) Nucleated RBC % Seg Neutrophils # Seg Neutrophils # Man Lymphocytes # (Manual) 0.4 L Monocytes # (Manual) Eosinophils # (Manual) PT INR Fibrinogen dRVVT Confirm Interp Factor V Activity POC ABG pH 7.310 L POC ABG pCO2 49.0 H POC ABG pO2 Sodium 133 L Potassium Chloride 95.9 L Carbon Dioxide BUN 26 H Creatinine 2.0 H Glucose 116 H POC Glucose Lactic Acid Calcium 7.8 L Phosphorus Magnesium Direct Bilirubin AST ALT Alkaline Phosphatase Lactate Dehydrogenase Troponin T C-Reactive Protein Total Protein Albumin Prealbumin Triglycerides Cholesterol LDL Cholesterol Direct HDL Cholesterol Urine pH Urine WBC (Auto) Urine Creatinine Urine Total Protein Fluid Total Protein Vancomycin Trough Rheumatoid Factor Complement C4 Miscellaneous Test Crossmatch 10/06/16 10/06/16 10/06/16 05:23 11:52 18:34 WBC RBC Hgb Hct MCV MCH MCHC RDW Plt Count Lymph % (Auto) [place] % (Auto) Lymph # [place] # Baso # Seg Neutrophils % Seg Neuts % (Manual) Lymphocytes % (Manual) Monocytes % (Manual) Eosinophils % (Manual) Basophils % (Manual) Nucleated RBC % Seg Neutrophils # Seg Neutrophils # Man Lymphocytes # (Manual) Monocytes # (Manual) Eosinophils # (Manual) PT INR Fibrinogen dRVVT Confirm Interp Factor V Activity POC ABG pH POC ABG pCO2 POC ABG pO2 Sodium Potassium Chloride Carbon Dioxide BUN Creatinine Glucose POC Glucose 126 H 116 H 129 H Lactic Acid Calcium Phosphorus Magnesium Direct Bilirubin AST ALT Alkaline Phosphatase Lactate Dehydrogenase Troponin T C-Reactive Protein Total Protein Albumin Prealbumin Triglycerides Cholesterol LDL Cholesterol Direct HDL Cholesterol Urine pH Urine WBC (Auto) Urine Creatinine Urine Total Protein Fluid Total Protein Vancomycin Trough Rheumatoid Factor Complement C4 Miscellaneous Test Crossmatch 10/07/16 10/07/16 10/07/16 03:45 05:00 10:00 WBC 17.0 H RBC 2.68 L Hgb 7.3 L Hct 25.3 L MCV MCH 27 L MCHC 29 L RDW 19.6 H Plt Count 74 L Lymph % (Auto) [place] % (Auto) Lymph # [place] # Baso # Seg Neutrophils % Seg Neuts % (Manual) Lymphocytes % (Manual) 12.0 L Monocytes % (Manual) Eosinophils % (Manual) Basophils % (Manual) Nucleated RBC % 4.0 H Seg Neutrophils # Seg Neutrophils # Man 10.7 H Lymphocytes # (Manual) Monocytes # (Manual) Eosinophils # (Manual) PT INR Fibrinogen dRVVT Confirm Interp Factor V Activity POC ABG pH POC ABG pCO2 POC ABG pO2 Sodium 130 L Potassium 3.2 L Chloride 93.9 L Carbon Dioxide 20 L BUN 44 H Creatinine 2.7 H Glucose 129 H POC Glucose Lactic Acid Calcium 7.4 L Phosphorus Magnesium Direct Bilirubin AST ALT 6 L Alkaline Phosphatase 195 H Lactate Dehydrogenase Troponin T C-Reactive Protein Total Protein 4.9 L Albumin 1.0 L Prealbumin Triglycerides Cholesterol LDL Cholesterol Direct HDL Cholesterol Urine pH Urine WBC (Auto) Urine Creatinine Urine Total Protein Fluid Total Protein Vancomycin Trough Rheumatoid Factor Complement C4 Miscellaneous Test Flexitest 1 H Crossmatch 10/07/16 10/07/16 10/07/16 10:00 11:24 18:10 WBC RBC Hgb Hct MCV MCH MCHC RDW Plt Count Lymph % (Auto) [place] % (Auto) Lymph # [place] # Baso # Seg Neutrophils % Seg Neuts % (Manual) Lymphocytes % (Manual) Monocytes % (Manual) Eosinophils % (Manual) Basophils % (Manual) Nucleated RBC % Seg Neutrophils # Seg Neutrophils # Man Lymphocytes # (Manual) Monocytes # (Manual) Eosinophils # (Manual) PT INR Fibrinogen dRVVT Confirm Interp Factor V Activity POC ABG pH POC ABG pCO2 POC ABG pO2 Sodium Potassium Chloride Carbon Dioxide BUN Creatinine Glucose POC Glucose 116 H 130 H Lactic Acid Calcium Phosphorus Magnesium Direct Bilirubin AST ALT Alkaline Phosphatase Lactate Dehydrogenase Troponin T C-Reactive Protein 19.40 H Total Protein Albumin Prealbumin Triglycerides Cholesterol LDL Cholesterol Direct HDL Cholesterol Urine pH Urine WBC (Auto) Urine Creatinine Urine Total Protein Fluid Total Protein Vancomycin Trough Rheumatoid Factor Complement C4 Miscellaneous Test Crossmatch 10/07/16 10/08/16 10/08/16 18:30 00:00 04:00 WBC RBC Hgb Hct MCV MCH MCHC RDW Plt Count Lymph % (Auto) [place] % (Auto) Lymph # [place] # Baso # Seg Neutrophils % Seg Neuts % (Manual) Lymphocytes % (Manual) Monocytes % (Manual) Eosinophils % (Manual) Basophils % (Manual) Nucleated RBC % Seg Neutrophils # Seg Neutrophils # Man Lymphocytes # (Manual) Monocytes # (Manual) Eosinophils # (Manual) PT INR Fibrinogen dRVVT Confirm Interp Factor V Activity POC ABG pH POC ABG pCO2 POC ABG pO2 Sodium 132 L Potassium 3.3 L Chloride 93.6 L Carbon Dioxide 17 L BUN 59 H Creatinine 2.7 H Glucose 121 H POC Glucose 122 H Lactic Acid Calcium 7.6 L Phosphorus Magnesium Direct Bilirubin AST ALT Alkaline Phosphatase Lactate Dehydrogenase Troponin T C-Reactive Protein Total Protein Albumin Prealbumin Triglycerides Cholesterol LDL Cholesterol Direct HDL Cholesterol Urine pH Urine WBC (Auto) > 182.0 H Urine Creatinine Urine Total Protein Fluid Total Protein Vancomycin Trough Rheumatoid Factor Complement C4 Miscellaneous Test Crossmatch 10/08/16 10/08/16 10/08/16 04:30 05:30 11:51 WBC RBC 5.15 H Hgb 14.4 H D Hct 44.5 H D MCV MCH MCHC RDW 19.5 H Plt Count 56 L Lymph % (Auto) [place] % (Auto) Lymph # [place] # Baso # Seg Neutrophils % Seg Neuts % (Manual) 24.0 L Lymphocytes % (Manual) 8.0 L Monocytes % (Manual) Eosinophils % (Manual) Basophils % (Manual) Nucleated RBC % 9.0 H Seg Neutrophils # Seg Neutrophils # Man Lymphocytes # (Manual) 0.7 L Monocytes # (Manual) Eosinophils # (Manual) PT INR Fibrinogen dRVVT Confirm Interp Factor V Activity POC ABG pH POC ABG pCO2 POC ABG pO2 Sodium Potassium Chloride Carbon Dioxide BUN Creatinine Glucose POC Glucose 125 H 150 H Lactic Acid Calcium Phosphorus Magnesium Direct Bilirubin AST ALT Alkaline Phosphatase Lactate Dehydrogenase Troponin T C-Reactive Protein Total Protein Albumin Prealbumin Triglycerides Cholesterol LDL Cholesterol Direct HDL Cholesterol Urine pH Urine WBC (Auto) Urine Creatinine Urine Total Protein Fluid Total Protein Vancomycin Trough Rheumatoid Factor Complement C4 Miscellaneous Test Crossmatch 10/08/16 10/08/16 10/08/16 12:49 17:07 19:30 WBC RBC Hgb 7.1 L D Hct 22.4 L D MCV MCH MCHC RDW Plt Count Lymph % (Auto) [place] % (Auto) Lymph # [place] # Baso # Seg Neutrophils % Seg Neuts % (Manual) Lymphocytes % (Manual) Monocytes % (Manual) Eosinophils % (Manual) Basophils % (Manual) Nucleated RBC % Seg Neutrophils # Seg Neutrophils # Man Lymphocytes # (Manual) Monocytes # (Manual) Eosinophils # (Manual) PT INR Fibrinogen dRVVT Confirm Interp Factor V Activity POC ABG pH POC ABG pCO2 28.2 L POC ABG pO2 111 H Sodium Potassium Chloride Carbon Dioxide BUN Creatinine Glucose POC Glucose 145 H Lactic Acid Calcium Phosphorus Magnesium Direct Bilirubin AST ALT Alkaline Phosphatase Lactate Dehydrogenase Troponin T C-Reactive Protein Total Protein Albumin Prealbumin Triglycerides Cholesterol LDL Cholesterol Direct HDL Cholesterol Urine pH Urine WBC (Auto) Urine Creatinine Urine Total Protein Fluid Total Protein Vancomycin Trough Rheumatoid Factor Complement C4 Miscellaneous Test Crossmatch 10/08/16 10/09/16 10/09/16 19:30 03:45 03:45 WBC 12.6 H RBC 2.36 L Hgb 6.7 L Hct 21.1 L MCV MCH MCHC RDW 19.5 H Plt Count 75 L Lymph % (Auto) [place] % (Auto) Lymph # [place] # Baso # Seg Neutrophils % Seg Neuts % (Manual) Lymphocytes % (Manual) Monocytes % (Manual) 10.0 H Eosinophils % (Manual) Basophils % (Manual) Nucleated RBC % 3.0 H Seg Neutrophils # Seg Neutrophils # Man Lymphocytes # (Manual) Monocytes # (Manual) 1.3 H Eosinophils # (Manual) PT 18.0 H INR 1.41 H Fibrinogen dRVVT Confirm Interp Factor V Activity POC ABG pH POC ABG pCO2 POC ABG pO2 Sodium 135 L Potassium Chloride Carbon Dioxide 17 L BUN 81 H Creatinine 3.2 H Glucose 109 H POC Glucose Lactic Acid Calcium 7.4 L Phosphorus 4.60 H D Magnesium Direct Bilirubin AST ALT Alkaline Phosphatase Lactate Dehydrogenase Troponin T C-Reactive Protein Total Protein Albumin Prealbumin Triglycerides Cholesterol LDL Cholesterol Direct HDL Cholesterol Urine pH Urine WBC (Auto) Urine Creatinine Urine Total Protein Fluid Total Protein Vancomycin Trough Rheumatoid Factor Complement C4 Miscellaneous Test Crossmatch 10/09/16 10/09/16 10/09/16 03:45 05:14 07:20 WBC RBC Hgb Hct MCV MCH MCHC RDW Plt Count Lymph % (Auto) [place] % (Auto) Lymph # [place] # Baso # Seg Neutrophils % Seg Neuts % (Manual) Lymphocytes % (Manual) Monocytes % (Manual) Eosinophils % (Manual) Basophils % (Manual) Nucleated RBC % Seg Neutrophils # Seg Neutrophils # Man Lymphocytes # (Manual) Monocytes # (Manual) Eosinophils # (Manual) PT 19.0 H INR 1.51 H Fibrinogen dRVVT Confirm Interp Factor V Activity POC ABG pH POC ABG pCO2 POC ABG pO2 Sodium Potassium Chloride Carbon Dioxide BUN Creatinine Glucose POC Glucose 151 H Lactic Acid Calcium Phosphorus Magnesium Direct Bilirubin AST ALT Alkaline Phosphatase Lactate Dehydrogenase Troponin T C-Reactive Protein Total Protein Albumin Prealbumin Triglycerides Cholesterol LDL Cholesterol Direct HDL Cholesterol Urine pH Urine WBC (Auto) Urine Creatinine Urine Total Protein Fluid Total Protein Vancomycin Trough Rheumatoid Factor Complement C4 Miscellaneous Test Crossmatch See Detail 10/09/16 10/09/16 10/09/16 11:46 16:20 16:43 WBC RBC Hgb 7.2 L Hct 22.2 L MCV MCH MCHC RDW Plt Count Lymph % (Auto) [place] % (Auto) Lymph # [place] # Baso # Seg Neutrophils % Seg Neuts % (Manual) Lymphocytes % (Manual) Monocytes % (Manual) Eosinophils % (Manual) Basophils % (Manual) Nucleated RBC % Seg Neutrophils # Seg Neutrophils # Man Lymphocytes # (Manual) Monocytes # (Manual) Eosinophils # (Manual) PT INR Fibrinogen dRVVT Confirm Interp Factor V Activity POC ABG pH POC ABG pCO2 POC ABG pO2 Sodium Potassium Chloride Carbon Dioxide BUN Creatinine Glucose POC Glucose 133 H 141 H Lactic Acid Calcium Phosphorus Magnesium Direct Bilirubin AST ALT Alkaline Phosphatase Lactate Dehydrogenase Troponin T C-Reactive Protein Total Protein Albumin Prealbumin Triglycerides Cholesterol LDL Cholesterol Direct HDL Cholesterol Urine pH Urine WBC (Auto) Urine Creatinine Urine Total Protein Fluid Total Protein Vancomycin Trough Rheumatoid Factor Complement C4 Miscellaneous Test Crossmatch 10/10/16 10/10/16 10/10/16 05:00 05:00 11:19 WBC 18.5 H RBC 2.19 L Hgb 6.4 L Hct 19.6 L* MCV MCH MCHC RDW 19.3 H Plt Count 93 L Lymph % (Auto) [place] % (Auto) Lymph # [place] # Baso # Seg Neutrophils % Seg Neuts % (Manual) Lymphocytes % (Manual) 10.0 L Monocytes % (Manual) Eosinophils % (Manual) Basophils % (Manual) Nucleated RBC % 4.0 H Seg Neutrophils # Seg Neutrophils # Man 11.3 H Lymphocytes # (Manual) Monocytes # (Manual) Eosinophils # (Manual) PT INR Fibrinogen dRVVT Confirm Interp Factor V Activity POC ABG pH POC ABG pCO2 POC ABG pO2 Sodium Potassium 5.7 H D Chloride Carbon Dioxide 16 L BUN 94 H Creatinine 3.1 H Glucose 131 H POC Glucose 153 H Lactic Acid Calcium 8.2 L Phosphorus 5.10 H Magnesium 2.40 H Direct Bilirubin 0.3 H AST ALT < 5 L Alkaline Phosphatase 319 H Lactate Dehydrogenase Troponin T C-Reactive Protein Total Protein 5.1 L Albumin 1.0 L Prealbumin Triglycerides Cholesterol LDL Cholesterol Direct HDL Cholesterol Urine pH Urine WBC (Auto) Urine Creatinine Urine Total Protein Fluid Total Protein Vancomycin Trough Rheumatoid Factor Complement C4 Miscellaneous Test Crossmatch 10/10/16 10/10/16 10/11/16 17:50 23:30 04:15 WBC RBC Hgb Hct MCV MCH MCHC RDW Plt Count Lymph % (Auto) [place] % (Auto) Lymph # [place] # Baso # Seg Neutrophils % Seg Neuts % (Manual) Lymphocytes % (Manual) Monocytes % (Manual) Eosinophils % (Manual) Basophils % (Manual) Nucleated RBC % Seg Neutrophils # Seg Neutrophils # Man Lymphocytes # (Manual) Monocytes # (Manual) Eosinophils # (Manual) PT INR Fibrinogen dRVVT Confirm Interp Factor V Activity POC ABG pH POC ABG pCO2 POC ABG pO2 Sodium Potassium Chloride 96.4 L Carbon Dioxide 21 L BUN 57 H Creatinine 2.1 H Glucose 151 H POC Glucose 146 H 141 H Lactic Acid Calcium 8.3 L Phosphorus Magnesium Direct Bilirubin AST ALT Alkaline Phosphatase Lactate Dehydrogenase Troponin T C-Reactive Protein Total Protein Albumin Prealbumin Triglycerides Cholesterol LDL Cholesterol Direct HDL Cholesterol Urine pH Urine WBC (Auto) Urine Creatinine Urine Total Protein Fluid Total Protein Vancomycin Trough Rheumatoid Factor Complement C4 Miscellaneous Test Crossmatch 10/11/16 10/11/16 10/11/16 04:15 04:15 05:30 WBC 28.3 H RBC 3.12 L Hgb 9.3 L Hct 28.7 L D MCV MCH MCHC RDW 17.7 H Plt Count 128 L Lymph % (Auto) [place] % (Auto) Lymph # [place] # Baso # Seg Neutrophils % Seg Neuts % (Manual) Lymphocytes % (Manual) Monocytes % (Manual) Eosinophils % (Manual) Basophils % (Manual) Nucleated RBC % Seg Neutrophils # Seg Neutrophils # Man Lymphocytes # (Manual) Monocytes # (Manual) Eosinophils # (Manual) PT INR Fibrinogen dRVVT Confirm Interp Factor V Activity POC ABG pH POC ABG pCO2 POC ABG pO2 Sodium Potassium Chloride Carbon Dioxide BUN Creatinine Glucose POC Glucose 167 H Lactic Acid Calcium Phosphorus Magnesium Direct Bilirubin AST ALT Alkaline Phosphatase Lactate Dehydrogenase Troponin T C-Reactive Protein 15.80 H Total Protein Albumin Prealbumin Triglycerides Cholesterol LDL Cholesterol Direct HDL Cholesterol Urine pH Urine WBC (Auto) Urine Creatinine Urine Total Protein Fluid Total Protein Vancomycin Trough Rheumatoid Factor Complement C4 Miscellaneous Test Crossmatch 10/11/16 10/11/16 10/11/16 11:40 15:49 23:57 WBC RBC Hgb Hct MCV MCH MCHC RDW Plt Count Lymph % (Auto) [place] % (Auto) Lymph # [place] # Baso # Seg Neutrophils % Seg Neuts % (Manual) Lymphocytes % (Manual) Monocytes % (Manual) Eosinophils % (Manual) Basophils % (Manual) Nucleated RBC % Seg Neutrophils # Seg Neutrophils # Man Lymphocytes # (Manual) Monocytes # (Manual) Eosinophils # (Manual) PT INR Fibrinogen dRVVT Confirm Interp Factor V Activity POC ABG pH POC ABG pCO2 POC ABG pO2 Sodium Potassium Chloride Carbon Dioxide BUN Creatinine Glucose POC Glucose 139 H 168 H 161 H Lactic Acid Calcium Phosphorus Magnesium Direct Bilirubin AST ALT Alkaline Phosphatase Lactate Dehydrogenase Troponin T C-Reactive Protein Total Protein Albumin Prealbumin Triglycerides Cholesterol LDL Cholesterol Direct HDL Cholesterol Urine pH Urine WBC (Auto) Urine Creatinine Urine Total Protein Fluid Total Protein Vancomycin Trough Rheumatoid Factor Complement C4 Miscellaneous Test Crossmatch 10/12/16 10/12/16 10/12/16 04:40 04:40 05:44 WBC 22.5 H RBC 2.88 L Hgb 8.8 L Hct 26.8 L MCV MCH MCHC RDW 17.8 H Plt Count Lymph % (Auto) [place] % (Auto) Lymph # [place] # Baso # Seg Neutrophils % Seg Neuts % (Manual) Lymphocytes % (Manual) Monocytes % (Manual) Eosinophils % (Manual) Basophils % (Manual) Nucleated RBC % Seg Neutrophils # Seg Neutrophils # Man Lymphocytes # (Manual) Monocytes # (Manual) Eosinophils # (Manual) PT INR Fibrinogen dRVVT Confirm Interp Factor V Activity POC ABG pH POC ABG pCO2 POC ABG pO2 Sodium 134 L Potassium Chloride 93.0 L Carbon Dioxide BUN 74 H Creatinine 2.5 H Glucose 137 H POC Glucose 158 H Lactic Acid Calcium 8.2 L Phosphorus Magnesium Direct Bilirubin AST ALT Alkaline Phosphatase Lactate Dehydrogenase Troponin T C-Reactive Protein Total Protein Albumin Prealbumin Triglycerides Cholesterol LDL Cholesterol Direct HDL Cholesterol Urine pH Urine WBC (Auto) Urine Creatinine Urine Total Protein Fluid Total Protein Vancomycin Trough Rheumatoid Factor Complement C4 Miscellaneous Test Crossmatch 10/12/16 10/12/16 10/12/16 12:27 18:18 23:46 WBC RBC Hgb Hct MCV MCH MCHC RDW Plt Count Lymph % (Auto) [place] % (Auto) Lymph # [place] # Baso # Seg Neutrophils % Seg Neuts % (Manual) Lymphocytes % (Manual) Monocytes % (Manual) Eosinophils % (Manual) Basophils % (Manual) Nucleated RBC % Seg Neutrophils # Seg Neutrophils # Man Lymphocytes # (Manual) Monocytes # (Manual) Eosinophils # (Manual) PT INR Fibrinogen dRVVT Confirm Interp Factor V Activity POC ABG pH POC ABG pCO2 POC ABG pO2 Sodium Potassium Chloride Carbon Dioxide BUN Creatinine Glucose POC Glucose 153 H 140 H 150 H Lactic Acid Calcium Phosphorus Magnesium Direct Bilirubin AST ALT Alkaline Phosphatase Lactate Dehydrogenase Troponin T C-Reactive Protein Total Protein Albumin Prealbumin Triglycerides Cholesterol LDL Cholesterol Direct HDL Cholesterol Urine pH Urine WBC (Auto) Urine Creatinine Urine Total Protein Fluid Total Protein Vancomycin Trough Rheumatoid Factor Complement C4 Miscellaneous Test Crossmatch 10/13/16 10/13/16 10/13/16 06:22 09:20 12:29 WBC RBC Hgb Hct MCV MCH MCHC RDW Plt Count Lymph % (Auto) [place] % (Auto) Lymph # [place] # Baso # Seg Neutrophils % Seg Neuts % (Manual) Lymphocytes % (Manual) Monocytes % (Manual) Eosinophils % (Manual) Basophils % (Manual) Nucleated RBC % Seg Neutrophils # Seg Neutrophils # Man Lymphocytes # (Manual) Monocytes # (Manual) Eosinophils # (Manual) PT INR Fibrinogen dRVVT Confirm Interp Factor V Activity POC ABG pH POC ABG pCO2 POC ABG pO2 Sodium Potassium Chloride Carbon Dioxide BUN Creatinine Glucose POC Glucose 165 H 193 H Lactic Acid Calcium Phosphorus Magnesium Direct Bilirubin AST ALT Alkaline Phosphatase Lactate Dehydrogenase Troponin T C-Reactive Protein Total Protein Albumin Prealbumin Triglycerides Cholesterol LDL Cholesterol Direct HDL Cholesterol Urine pH Urine WBC (Auto) Urine Creatinine Urine Total Protein Fluid Total Protein Vancomycin Trough Rheumatoid Factor Complement C4 Miscellaneous Test Flexitest 1 H Crossmatch 10/13/16 10/13/16 10/13/16 18:09 Unknown Unknown WBC 23.4 H RBC 2.83 L Hgb 8.7 L Hct 26.1 L MCV MCH MCHC RDW 18.1 H Plt Count Lymph % (Auto) [place] % (Auto) Lymph # [place] # Baso # Seg Neutrophils % Seg Neuts % (Manual) Lymphocytes % (Manual) Monocytes % (Manual) Eosinophils % (Manual) Basophils % (Manual) Nucleated RBC % Seg Neutrophils # Seg Neutrophils # Man Lymphocytes # (Manual) Monocytes # (Manual) Eosinophils # (Manual) PT INR Fibrinogen dRVVT Confirm Interp Factor V Activity POC ABG pH POC ABG pCO2 POC ABG pO2 Sodium Potassium Chloride 95.8 L Carbon Dioxide BUN 82 H Creatinine 2.6 H Glucose 152 H POC Glucose 166 H Lactic Acid Calcium Phosphorus Magnesium Direct Bilirubin AST ALT Alkaline Phosphatase Lactate Dehydrogenase Troponin T C-Reactive Protein Total Protein Albumin Prealbumin Triglycerides Cholesterol LDL Cholesterol Direct HDL Cholesterol Urine pH Urine WBC (Auto) Urine Creatinine Urine Total Protein Fluid Total Protein Vancomycin Trough Rheumatoid Factor Complement C4 Miscellaneous Test Crossmatch 10/14/16 10/14/16 10/14/16 05:38 06:35 08:10 WBC 20.7 H RBC 2.81 L Hgb 8.4 L Hct 27.2 L MCV MCH MCHC RDW 19.4 H Plt Count Lymph % (Auto) [place] % (Auto) Lymph # [place] # Baso # Seg Neutrophils % Seg Neuts % (Manual) Lymphocytes % (Manual) Monocytes % (Manual) Eosinophils % (Manual) Basophils % (Manual) Nucleated RBC % Seg Neutrophils # Seg Neutrophils # Man Lymphocytes # (Manual) Monocytes # (Manual) Eosinophils # (Manual) PT INR Fibrinogen dRVVT Confirm Interp Factor V Activity POC ABG pH POC ABG pCO2 POC ABG pO2 Sodium Potassium Chloride Carbon Dioxide BUN 58 H Creatinine 1.9 H Glucose 169 H POC Glucose 195 H Lactic Acid Calcium Phosphorus Magnesium Direct Bilirubin AST ALT Alkaline Phosphatase Lactate Dehydrogenase Troponin T C-Reactive Protein Total Protein Albumin Prealbumin Triglycerides Cholesterol LDL Cholesterol Direct HDL Cholesterol Urine pH Urine WBC (Auto) Urine Creatinine Urine Total Protein Fluid Total Protein Vancomycin Trough Rheumatoid Factor Complement C4 Miscellaneous Test Crossmatch 10/14/16 10/14/16 10/14/16 11:44 17:13 23:28 WBC RBC Hgb Hct MCV MCH MCHC RDW Plt Count Lymph % (Auto) [place] % (Auto) Lymph # [place] # Baso # Seg Neutrophils % Seg Neuts % (Manual) Lymphocytes % (Manual) Monocytes % (Manual) Eosinophils % (Manual) Basophils % (Manual) Nucleated RBC % Seg Neutrophils # Seg Neutrophils # Man Lymphocytes # (Manual) Monocytes # (Manual) Eosinophils # (Manual) PT INR Fibrinogen dRVVT Confirm Interp Factor V Activity POC ABG pH POC ABG pCO2 POC ABG pO2 Sodium Potassium Chloride Carbon Dioxide BUN Creatinine Glucose POC Glucose 174 H 121 H 151 H Lactic Acid Calcium Phosphorus Magnesium Direct Bilirubin AST ALT Alkaline Phosphatase Lactate Dehydrogenase Troponin T C-Reactive Protein Total Protein Albumin Prealbumin Triglycerides Cholesterol LDL Cholesterol Direct HDL Cholesterol Urine pH Urine WBC (Auto) Urine Creatinine Urine Total Protein Fluid Total Protein Vancomycin Trough Rheumatoid Factor Complement C4 Miscellaneous Test Crossmatch 10/15/16 10/15/16 10/15/16 05:06 12:26 17:48 WBC RBC Hgb Hct MCV MCH MCHC RDW Plt Count Lymph % (Auto) [place] % (Auto) Lymph # [place] # Baso # Seg Neutrophils % Seg Neuts % (Manual) Lymphocytes % (Manual) Monocytes % (Manual) Eosinophils % (Manual) Basophils % (Manual) Nucleated RBC % Seg Neutrophils # Seg Neutrophils # Man Lymphocytes # (Manual) Monocytes # (Manual) Eosinophils # (Manual) PT INR Fibrinogen dRVVT Confirm Interp Factor V Activity POC ABG pH POC ABG pCO2 POC ABG pO2 Sodium Potassium Chloride Carbon Dioxide BUN Creatinine Glucose POC Glucose 151 H 149 H 153 H Lactic Acid Calcium Phosphorus Magnesium Direct Bilirubin AST ALT Alkaline Phosphatase Lactate Dehydrogenase Troponin T C-Reactive Protein Total Protein Albumin Prealbumin Triglycerides Cholesterol LDL Cholesterol Direct HDL Cholesterol Urine pH Urine WBC (Auto) Urine Creatinine Urine Total Protein Fluid Total Protein Vancomycin Trough Rheumatoid Factor Complement C4 Miscellaneous Test Crossmatch 10/15/16 10/15/16 10/16/16 Unknown Unknown 00:02 WBC 23.4 H RBC 2.78 L Hgb 8.5 L Hct 25.7 L MCV MCH MCHC RDW 18.7 H Plt Count Lymph % (Auto) [place] % (Auto) Lymph # [place] # Baso # Seg Neutrophils % Seg Neuts % (Manual) Lymphocytes % (Manual) Monocytes % (Manual) Eosinophils % (Manual) Basophils % (Manual) Nucleated RBC % Seg Neutrophils # Seg Neutrophils # Man Lymphocytes # (Manual) Monocytes # (Manual) Eosinophils # (Manual) PT INR Fibrinogen dRVVT Confirm Interp Factor V Activity POC ABG pH POC ABG pCO2 POC ABG pO2 Sodium Potassium Chloride Carbon Dioxide BUN 73 H Creatinine 2.3 H Glucose 120 H POC Glucose 137 H Lactic Acid Calcium Phosphorus Magnesium Direct Bilirubin AST ALT Alkaline Phosphatase Lactate Dehydrogenase Troponin T C-Reactive Protein Total Protein Albumin Prealbumin Triglycerides Cholesterol LDL Cholesterol Direct HDL Cholesterol Urine pH Urine WBC (Auto) Urine Creatinine Urine Total Protein Fluid Total Protein Vancomycin Trough Rheumatoid Factor Complement C4 Miscellaneous Test Crossmatch 10/16/16 10/16/16 10/16/16 05:44 06:25 06:25 WBC 22.5 H RBC 2.76 L Hgb 8.3 L Hct 25.2 L MCV MCH MCHC RDW 18.3 H Plt Count Lymph % (Auto) [place] % (Auto) Lymph # [place] # Baso # Seg Neutrophils % Seg Neuts % (Manual) Lymphocytes % (Manual) Monocytes % (Manual) Eosinophils % (Manual) Basophils % (Manual) Nucleated RBC % Seg Neutrophils # Seg Neutrophils # Man Lymphocytes # (Manual) Monocytes # (Manual) Eosinophils # (Manual) PT INR Fibrinogen dRVVT Confirm Interp Factor V Activity POC ABG pH POC ABG pCO2 POC ABG pO2 Sodium Potassium Chloride Carbon Dioxide BUN 92 H Creatinine 3.0 H Glucose 138 H POC Glucose 110 H Lactic Acid Calcium Phosphorus Magnesium Direct Bilirubin AST ALT Alkaline Phosphatase Lactate Dehydrogenase Troponin T C-Reactive Protein Total Protein Albumin Prealbumin Triglycerides Cholesterol LDL Cholesterol Direct HDL Cholesterol Urine pH Urine WBC (Auto) Urine Creatinine Urine Total Protein Fluid Total Protein Vancomycin Trough Rheumatoid Factor Complement C4 Miscellaneous Test Crossmatch 10/16/16 10/16/16 10/16/16 11:27 11:48 17:36 WBC RBC Hgb Hct MCV MCH MCHC RDW Plt Count Lymph % (Auto) [place] % (Auto) Lymph # [place] # Baso # Seg Neutrophils % Seg Neuts % (Manual) Lymphocytes % (Manual) Monocytes % (Manual) Eosinophils % (Manual) Basophils % (Manual) Nucleated RBC % Seg Neutrophils # Seg Neutrophils # Man Lymphocytes # (Manual) Monocytes # (Manual) Eosinophils # (Manual) PT INR Fibrinogen dRVVT Confirm Interp Factor V Activity POC ABG pH 7.582 H POC ABG pCO2 27.4 L POC ABG pO2 110 H Sodium Potassium Chloride Carbon Dioxide BUN Creatinine Glucose POC Glucose 121 H 133 H Lactic Acid Calcium Phosphorus Magnesium Direct Bilirubin AST ALT Alkaline Phosphatase Lactate Dehydrogenase Troponin T C-Reactive Protein Total Protein Albumin Prealbumin Triglycerides Cholesterol LDL Cholesterol Direct HDL Cholesterol Urine pH Urine WBC (Auto) Urine Creatinine Urine Total Protein Fluid Total Protein Vancomycin Trough Rheumatoid Factor Complement C4 Miscellaneous Test Crossmatch 10/16/16 10/17/16 10/17/16 20:48 04:24 04:24 WBC 21.4 H RBC 2.72 L Hgb 8.0 L Hct 25.2 L MCV MCH MCHC RDW 18.0 H Plt Count Lymph % (Auto) [place] % (Auto) Lymph # [place] # Baso # Seg Neutrophils % Seg Neuts % (Manual) Lymphocytes % (Manual) Monocytes % (Manual) Eosinophils % (Manual) Basophils % (Manual) Nucleated RBC % Seg Neutrophils # Seg Neutrophils # Man Lymphocytes # (Manual) Monocytes # (Manual) Eosinophils # (Manual) PT INR Fibrinogen dRVVT Confirm Interp Factor V Activity POC ABG pH 7.561 H POC ABG pCO2 24.4 L POC ABG pO2 77 L Sodium 148 H Potassium Chloride Carbon Dioxide BUN 104 H Creatinine 3.0 H Glucose 149 H POC Glucose Lactic Acid Calcium Phosphorus Magnesium Direct Bilirubin AST ALT Alkaline Phosphatase 138 H Lactate Dehydrogenase Troponin T C-Reactive Protein Total Protein 6.2 L Albumin 1.5 L Prealbumin Triglycerides Cholesterol LDL Cholesterol Direct HDL Cholesterol Urine pH Urine WBC (Auto) Urine Creatinine Urine Total Protein Fluid Total Protein Vancomycin Trough Rheumatoid Factor Complement C4 Miscellaneous Test Crossmatch 10/17/16 10/17/16 10/17/16 06:02 12:17 17:14 WBC RBC Hgb Hct MCV MCH MCHC RDW Plt Count Lymph % (Auto) [place] % (Auto) Lymph # [place] # Baso # Seg Neutrophils % Seg Neuts % (Manual) Lymphocytes % (Manual) Monocytes % (Manual) Eosinophils % (Manual) Basophils % (Manual) Nucleated RBC % Seg Neutrophils # Seg Neutrophils # Man Lymphocytes # (Manual) Monocytes # (Manual) Eosinophils # (Manual) PT INR Fibrinogen dRVVT Confirm Interp Factor V Activity POC ABG pH POC ABG pCO2 POC ABG pO2 Sodium Potassium Chloride Carbon Dioxide BUN Creatinine Glucose POC Glucose 170 H 167 H 126 H Lactic Acid Calcium Phosphorus Magnesium Direct Bilirubin AST ALT Alkaline Phosphatase Lactate Dehydrogenase Troponin T C-Reactive Protein Total Protein Albumin Prealbumin Triglycerides Cholesterol LDL Cholesterol Direct HDL Cholesterol Urine pH Urine WBC (Auto) Urine Creatinine Urine Total Protein Fluid Total Protein Vancomycin Trough Rheumatoid Factor Complement C4 Miscellaneous Test Crossmatch 10/17/16 10/18/16 10/18/16 23:17 04:00 04:00 WBC 20.7 H RBC 2.47 L Hgb 7.4 L Hct 22.9 L MCV MCH MCHC RDW 17.5 H Plt Count Lymph % (Auto) [place] % (Auto) Lymph # [place] # Baso # Seg Neutrophils % Seg Neuts % (Manual) Lymphocytes % (Manual) Monocytes % (Manual) Eosinophils % (Manual) Basophils % (Manual) Nucleated RBC % Seg Neutrophils # Seg Neutrophils # Man Lymphocytes # (Manual) Monocytes # (Manual) Eosinophils # (Manual) PT INR Fibrinogen dRVVT Confirm Interp Factor V Activity POC ABG pH POC ABG pCO2 POC ABG pO2 Sodium 149 H Potassium Chloride 107.9 H Carbon Dioxide 20 L BUN 117 H Creatinine 3.2 H Glucose 119 H POC Glucose 121 H Lactic Acid Calcium Phosphorus Magnesium Direct Bilirubin AST ALT Alkaline Phosphatase Lactate Dehydrogenase Troponin T C-Reactive Protein Total Protein Albumin Prealbumin Triglycerides Cholesterol LDL Cholesterol Direct HDL Cholesterol Urine pH Urine WBC (Auto) Urine Creatinine Urine Total Protein Fluid Total Protein Vancomycin Trough Rheumatoid Factor Complement C4 Miscellaneous Test Crossmatch 10/18/16 10/18/16 10/18/16 05:23 10:46 17:30 WBC RBC Hgb Hct MCV MCH MCHC RDW Plt Count Lymph % (Auto) [place] % (Auto) Lymph # [place] # Baso # Seg Neutrophils % Seg Neuts % (Manual) Lymphocytes % (Manual) Monocytes % (Manual) Eosinophils % (Manual) Basophils % (Manual) Nucleated RBC % Seg Neutrophils # Seg Neutrophils # Man Lymphocytes # (Manual) Monocytes # (Manual) Eosinophils # (Manual) PT INR Fibrinogen dRVVT Confirm Interp Factor V Activity POC ABG pH POC ABG pCO2 POC ABG pO2 Sodium Potassium Chloride Carbon Dioxide BUN Creatinine Glucose POC Glucose 119 H 155 H 124 H Lactic Acid Calcium Phosphorus Magnesium Direct Bilirubin AST ALT Alkaline Phosphatase Lactate Dehydrogenase Troponin T C-Reactive Protein Total Protein Albumin Prealbumin Triglycerides Cholesterol LDL Cholesterol Direct HDL Cholesterol Urine pH Urine WBC (Auto) Urine Creatinine Urine Total Protein Fluid Total Protein Vancomycin Trough Rheumatoid Factor Complement C4 Miscellaneous Test Crossmatch 10/19/16 10/19/16 10/19/16 04:00 04:00 05:25 WBC 17.4 H RBC 2.54 L Hgb 7.7 L Hct 23.6 L MCV MCH MCHC RDW 17.3 H Plt Count Lymph % (Auto) [place] % (Auto) Lymph # [place] # Baso # Seg Neutrophils % Seg Neuts % (Manual) Lymphocytes % (Manual) Monocytes % (Manual) Eosinophils % (Manual) Basophils % (Manual) Nucleated RBC % Seg Neutrophils # Seg Neutrophils # Man Lymphocytes # (Manual) Monocytes # (Manual) Eosinophils # (Manual) PT INR Fibrinogen dRVVT Confirm Interp Factor V Activity POC ABG pH POC ABG pCO2 POC ABG pO2 Sodium Potassium Chloride Carbon Dioxide BUN 72 H Creatinine 2.1 H Glucose 116 H POC Glucose 119 H Lactic Acid Calcium Phosphorus Magnesium Direct Bilirubin AST ALT Alkaline Phosphatase Lactate Dehydrogenase Troponin T C-Reactive Protein Total Protein Albumin Prealbumin Triglycerides Cholesterol LDL Cholesterol Direct HDL Cholesterol Urine pH Urine WBC (Auto) Urine Creatinine Urine Total Protein Fluid Total Protein Vancomycin Trough Rheumatoid Factor Complement C4 Miscellaneous Test Crossmatch 10/19/16 10/19/16 10/20/16 11:46 23:59 06:00 WBC RBC Hgb Hct MCV MCH MCHC RDW Plt Count Lymph % (Auto) [place] % (Auto) Lymph # [place] # Baso # Seg Neutrophils % Seg Neuts % (Manual) Lymphocytes % (Manual) Monocytes % (Manual) Eosinophils % (Manual) Basophils % (Manual) Nucleated RBC % Seg Neutrophils # Seg Neutrophils # Man Lymphocytes # (Manual) Monocytes # (Manual) Eosinophils # (Manual) PT INR Fibrinogen dRVVT Confirm Interp Factor V Activity POC ABG pH POC ABG pCO2 POC ABG pO2 Sodium Potassium Chloride Carbon Dioxide 17 L BUN 94 H Creatinine 2.7 H Glucose POC Glucose 116 H 117 H Lactic Acid Calcium Phosphorus Magnesium Direct Bilirubin AST ALT Alkaline Phosphatase Lactate Dehydrogenase Troponin T C-Reactive Protein Total Protein Albumin Prealbumin Triglycerides Cholesterol LDL Cholesterol Direct HDL Cholesterol Urine pH Urine WBC (Auto) Urine Creatinine Urine Total Protein Fluid Total Protein Vancomycin Trough Rheumatoid Factor Complement C4 Miscellaneous Test Crossmatch 10/20/16 10/20/16 10/20/16 06:00 11:49 16:00 WBC 19.7 H RBC 2.51 L Hgb 7.7 L Hct 23.5 L MCV MCH MCHC RDW 17.5 H Plt Count Lymph % (Auto) [place] % (Auto) Lymph # [place] # Baso # Seg Neutrophils % Seg Neuts % (Manual) Lymphocytes % (Manual) Monocytes % (Manual) Eosinophils % (Manual) Basophils % (Manual) Nucleated RBC % Seg Neutrophils # Seg Neutrophils # Man Lymphocytes # (Manual) Monocytes # (Manual) Eosinophils # (Manual) PT INR Fibrinogen dRVVT Confirm Interp Factor V Activity POC ABG pH POC ABG pCO2 POC ABG pO2 Sodium Potassium Chloride Carbon Dioxide BUN Creatinine Glucose POC Glucose 117 H Lactic Acid Calcium Phosphorus Magnesium Direct Bilirubin AST ALT Alkaline Phosphatase Lactate Dehydrogenase Troponin T C-Reactive Protein Total Protein Albumin Prealbumin Triglycerides Cholesterol LDL Cholesterol Direct HDL Cholesterol Urine pH Urine WBC (Auto) Urine Creatinine Urine Total Protein Fluid Total Protein Vancomycin Trough Rheumatoid Factor Complement C4 Miscellaneous Test Flexitest 1 H Crossmatch 10/20/16 10/20/16 10/21/16 18:36 23:39 04:00 WBC RBC Hgb Hct MCV MCH MCHC RDW Plt Count Lymph % (Auto) [place] % (Auto) Lymph # [place] # Baso # Seg Neutrophils % Seg Neuts % (Manual) Lymphocytes % (Manual) Monocytes % (Manual) Eosinophils % (Manual) Basophils % (Manual) Nucleated RBC % Seg Neutrophils # Seg Neutrophils # Man Lymphocytes # (Manual) Monocytes # (Manual) Eosinophils # (Manual) PT INR Fibrinogen dRVVT Confirm Interp Factor V Activity POC ABG pH POC ABG pCO2 POC ABG pO2 Sodium Potassium 5.4 H D Chloride Carbon Dioxide 15 L BUN 110 H Creatinine 3.0 H Glucose POC Glucose 127 H 114 H Lactic Acid Calcium Phosphorus Magnesium Direct Bilirubin AST ALT Alkaline Phosphatase Lactate Dehydrogenase Troponin T C-Reactive Protein Total Protein Albumin Prealbumin Triglycerides Cholesterol LDL Cholesterol Direct HDL Cholesterol Urine pH Urine WBC (Auto) Urine Creatinine Urine Total Protein Fluid Total Protein Vancomycin Trough Rheumatoid Factor Complement C4 Miscellaneous Test Crossmatch 10/21/16 10/21/16 10/22/16 05:54 23:46 05:18 WBC RBC Hgb Hct MCV MCH MCHC RDW Plt Count Lymph % (Auto) [place] % (Auto) Lymph # [place] # Baso # Seg Neutrophils % Seg Neuts % (Manual) Lymphocytes % (Manual) Monocytes % (Manual) Eosinophils % (Manual) Basophils % (Manual) Nucleated RBC % Seg Neutrophils # Seg Neutrophils # Man Lymphocytes # (Manual) Monocytes # (Manual) Eosinophils # (Manual) PT INR Fibrinogen dRVVT Confirm Interp Factor V Activity POC ABG pH POC ABG pCO2 POC ABG pO2 Sodium Potassium Chloride Carbon Dioxide BUN Creatinine Glucose POC Glucose 119 H 108 H 109 H Lactic Acid Calcium Phosphorus Magnesium Direct Bilirubin AST ALT Alkaline Phosphatase Lactate Dehydrogenase Troponin T C-Reactive Protein Total Protein Albumin Prealbumin Triglycerides Cholesterol LDL Cholesterol Direct HDL Cholesterol Urine pH Urine WBC (Auto) Urine Creatinine Urine Total Protein Fluid Total Protein Vancomycin Trough Rheumatoid Factor Complement C4 Miscellaneous Test Crossmatch 10/22/16 10/22/16 10/22/16 06:40 06:40 06:40 WBC 14.0 H RBC 2.03 L Hgb 7.0 L Hct 20.5 L MCV 98 H MCH 34 H MCHC 35 H RDW 17.8 H Plt Count Lymph % (Auto) [place] % (Auto) 9.9 H Lymph # [place] # 1.4 H Baso # 0.2 H Seg Neutrophils % 72.0 H Seg Neuts % (Manual) Lymphocytes % (Manual) Monocytes % (Manual) Eosinophils % (Manual) Basophils % (Manual) Nucleated RBC % Seg Neutrophils # 10.0 H Seg Neutrophils # Man Lymphocytes # (Manual) Monocytes # (Manual) Eosinophils # (Manual) PT INR Fibrinogen dRVVT Confirm Interp Factor V Activity POC ABG pH POC ABG pCO2 POC ABG pO2 Sodium 130 L D Potassium Chloride 92.4 L Carbon Dioxide 20 L BUN 50 H Creatinine 1.6 H Glucose 589 H* POC Glucose Lactic Acid Calcium 7.8 L D Phosphorus Magnesium 1.60 L Direct Bilirubin AST ALT Alkaline Phosphatase Lactate Dehydrogenase Troponin T C-Reactive Protein Total Protein Albumin Prealbumin Triglycerides Cholesterol LDL Cholesterol Direct HDL Cholesterol Urine pH Urine WBC (Auto) Urine Creatinine Urine Total Protein Fluid Total Protein Vancomycin Trough Rheumatoid Factor Complement C4 Miscellaneous Test Crossmatch 10/22/16 10/22/16 10/22/16 11:39 16:44 23:36 WBC RBC Hgb Hct MCV MCH MCHC RDW Plt Count Lymph % (Auto) [place] % (Auto) Lymph # [place] # Baso # Seg Neutrophils % Seg Neuts % (Manual) Lymphocytes % (Manual) Monocytes % (Manual) Eosinophils % (Manual) Basophils % (Manual) Nucleated RBC % Seg Neutrophils # Seg Neutrophils # Man Lymphocytes # (Manual) Monocytes # (Manual) Eosinophils # (Manual) PT INR Fibrinogen dRVVT Confirm Interp Factor V Activity POC ABG pH POC ABG pCO2 POC ABG pO2 Sodium Potassium Chloride Carbon Dioxide BUN Creatinine Glucose POC Glucose 142 H 163 H 123 H Lactic Acid Calcium Phosphorus Magnesium Direct Bilirubin AST ALT Alkaline Phosphatase Lactate Dehydrogenase Troponin T C-Reactive Protein Total Protein Albumin Prealbumin Triglycerides Cholesterol LDL Cholesterol Direct HDL Cholesterol Urine pH Urine WBC (Auto) Urine Creatinine Urine Total Protein Fluid Total Protein Vancomycin Trough Rheumatoid Factor Complement C4 Miscellaneous Test Crossmatch 10/23/16 10/23/16 10/23/16 04:58 06:00 12:12 WBC RBC Hgb Hct MCV MCH MCHC RDW Plt Count Lymph % (Auto) [place] % (Auto) Lymph # [place] # Baso # Seg Neutrophils % Seg Neuts % (Manual) Lymphocytes % (Manual) Monocytes % (Manual) Eosinophils % (Manual) Basophils % (Manual) Nucleated RBC % Seg Neutrophils # Seg Neutrophils # Man Lymphocytes # (Manual) Monocytes # (Manual) Eosinophils # (Manual) PT INR Fibrinogen dRVVT Confirm Interp Factor V Activity POC ABG pH POC ABG pCO2 POC ABG pO2 Sodium 133 L Potassium 3.5 L Chloride 96.1 L Carbon Dioxide 18 L BUN 76 H Creatinine 2.1 H Glucose POC Glucose 133 H 138 H Lactic Acid Calcium 8.3 L Phosphorus Magnesium Direct Bilirubin AST ALT Alkaline Phosphatase Lactate Dehydrogenase Troponin T C-Reactive Protein Total Protein Albumin Prealbumin Triglycerides Cholesterol LDL Cholesterol Direct HDL Cholesterol Urine pH Urine WBC (Auto) Urine Creatinine Urine Total Protein Fluid Total Protein Vancomycin Trough Rheumatoid Factor Complement C4 Miscellaneous Test Crossmatch 10/23/16 10/23/16 10/24/16 16:53 23:37 04:00 WBC RBC Hgb Hct MCV MCH MCHC RDW Plt Count Lymph % (Auto) [place] % (Auto) Lymph # [place] # Baso # Seg Neutrophils % Seg Neuts % (Manual) Lymphocytes % (Manual) Monocytes % (Manual) Eosinophils % (Manual) Basophils % (Manual) Nucleated RBC % Seg Neutrophils # Seg Neutrophils # Man Lymphocytes # (Manual) Monocytes # (Manual) Eosinophils # (Manual) PT INR Fibrinogen dRVVT Confirm Interp Factor V Activity POC ABG pH POC ABG pCO2 POC ABG pO2 Sodium 131 L Potassium Chloride 94.5 L Carbon Dioxide 19 L BUN 97 H Creatinine 2.6 H Glucose 110 H POC Glucose 125 H 123 H Lactic Acid Calcium 8.3 L Phosphorus Magnesium Direct Bilirubin AST ALT Alkaline Phosphatase Lactate Dehydrogenase Troponin T C-Reactive Protein Total Protein Albumin Prealbumin Triglycerides Cholesterol LDL Cholesterol Direct HDL Cholesterol Urine pH Urine WBC (Auto) Urine Creatinine Urine Total Protein Fluid Total Protein Vancomycin Trough Rheumatoid Factor Complement C4 Miscellaneous Test Crossmatch 10/24/16 10/24/16 10/24/16 07:49 11:39 17:52 WBC RBC Hgb 6.0 L Hct 19.7 L* MCV MCH MCHC RDW Plt Count Lymph % (Auto) [place] % (Auto) Lymph # [place] # Baso # Seg Neutrophils % Seg Neuts % (Manual) Lymphocytes % (Manual) Monocytes % (Manual) Eosinophils % (Manual) Basophils % (Manual) Nucleated RBC % Seg Neutrophils # Seg Neutrophils # Man Lymphocytes # (Manual) Monocytes # (Manual) Eosinophils # (Manual) PT INR Fibrinogen dRVVT Confirm Interp Factor V Activity POC ABG pH POC ABG pCO2 POC ABG pO2 Sodium Potassium Chloride Carbon Dioxide BUN Creatinine Glucose POC Glucose 106 H 158 H Lactic Acid Calcium Phosphorus Magnesium Direct Bilirubin AST ALT Alkaline Phosphatase Lactate Dehydrogenase Troponin T C-Reactive Protein Total Protein Albumin Prealbumin Triglycerides Cholesterol LDL Cholesterol Direct HDL Cholesterol Urine pH Urine WBC (Auto) Urine Creatinine Urine Total Protein Fluid Total Protein Vancomycin Trough Rheumatoid Factor Complement C4 Miscellaneous Test Crossmatch 10/24/16 10/24/16 10/24/16 20:00 22:27 Unknown WBC RBC Hgb 9.4 L D Hct 27.5 L D MCV MCH MCHC RDW Plt Count Lymph % (Auto) [place] % (Auto) Lymph # [place] # Baso # Seg Neutrophils % Seg Neuts % (Manual) Lymphocytes % (Manual) Monocytes % (Manual) Eosinophils % (Manual) Basophils % (Manual) Nucleated RBC % Seg Neutrophils # Seg Neutrophils # Man Lymphocytes # (Manual) Monocytes # (Manual) Eosinophils # (Manual) PT INR Fibrinogen dRVVT Confirm Interp Factor V Activity POC ABG pH POC ABG pCO2 POC ABG pO2 Sodium Potassium Chloride Carbon Dioxide BUN Creatinine Glucose POC Glucose 125 H Lactic Acid Calcium Phosphorus Magnesium Direct Bilirubin AST ALT Alkaline Phosphatase Lactate Dehydrogenase Troponin T C-Reactive Protein Total Protein Albumin Prealbumin Triglycerides Cholesterol LDL Cholesterol Direct HDL Cholesterol Urine pH Urine WBC (Auto) Urine Creatinine Urine Total Protein Fluid Total Protein Vancomycin Trough Rheumatoid Factor Complement C4 Miscellaneous Test Crossmatch See Detail 10/25/16 10/25/16 10/25/16 04:00 04:00 04:00 WBC 14.2 H RBC 2.98 L Hgb 9.0 L Hct 26.2 L MCV MCH MCHC RDW 16.6 H Plt Count Lymph % (Auto) [place] % (Auto) 10.7 H Lymph # [place] # 1.5 H Baso # Seg Neutrophils % 73.6 H Seg Neuts % (Manual) Lymphocytes % (Manual) Monocytes % (Manual) Eosinophils % (Manual) Basophils % (Manual) Nucleated RBC % Seg Neutrophils # 10.5 H Seg Neutrophils # Man Lymphocytes # (Manual) Monocytes # (Manual) Eosinophils # (Manual) PT INR Fibrinogen dRVVT Confirm Interp Factor V Activity POC ABG pH POC ABG pCO2 POC ABG pO2 Sodium 132 L Potassium Chloride 94.7 L Carbon Dioxide BUN 51 H Creatinine 1.6 H Glucose 130 H POC Glucose Lactic Acid Calcium 8.3 L Phosphorus 1.60 L D Magnesium Direct Bilirubin AST ALT Alkaline Phosphatase Lactate Dehydrogenase Troponin T C-Reactive Protein Total Protein Albumin Prealbumin Triglycerides Cholesterol LDL Cholesterol Direct HDL Cholesterol Urine pH Urine WBC (Auto) Urine Creatinine Urine Total Protein Fluid Total Protein Vancomycin Trough Rheumatoid Factor Complement C4 Miscellaneous Test Crossmatch 10/25/16 10/25/16 10/25/16 04:32 11:48 17:22 WBC RBC Hgb Hct MCV MCH MCHC RDW Plt Count Lymph % (Auto) [place] % (Auto) Lymph # [place] # Baso # Seg Neutrophils % Seg Neuts % (Manual) Lymphocytes % (Manual) Monocytes % (Manual) Eosinophils % (Manual) Basophils % (Manual) Nucleated RBC % Seg Neutrophils # Seg Neutrophils # Man Lymphocytes # (Manual) Monocytes # (Manual) Eosinophils # (Manual) PT INR Fibrinogen dRVVT Confirm Interp Factor V Activity POC ABG pH POC ABG pCO2 POC ABG pO2 Sodium Potassium Chloride Carbon Dioxide BUN Creatinine Glucose POC Glucose 124 H 171 H 120 H Lactic Acid Calcium Phosphorus Magnesium Direct Bilirubin AST ALT Alkaline Phosphatase Lactate Dehydrogenase Troponin T C-Reactive Protein Total Protein Albumin Prealbumin Triglycerides Cholesterol LDL Cholesterol Direct HDL Cholesterol Urine pH Urine WBC (Auto) Urine Creatinine Urine Total Protein Fluid Total Protein Vancomycin Trough Rheumatoid Factor Complement C4 Miscellaneous Test Crossmatch 10/26/16 10/26/16 10/26/16 04:54 07:06 07:06 WBC 16.9 H RBC 3.06 L Hgb 9.1 L Hct 26.9 L MCV MCH MCHC RDW 16.9 H Plt Count Lymph % (Auto) [place] % (Auto) Lymph # [place] # Baso # Seg Neutrophils % Seg Neuts % (Manual) 71.0 H Lymphocytes % (Manual) 5.0 L Monocytes % (Manual) 12.0 H Eosinophils % (Manual) Basophils % (Manual) Nucleated RBC % Seg Neutrophils # Seg Neutrophils # Man 12.0 H Lymphocytes # (Manual) 0.8 L Monocytes # (Manual) 2.0 H Eosinophils # (Manual) PT INR Fibrinogen dRVVT Confirm Interp Factor V Activity POC ABG pH POC ABG pCO2 POC ABG pO2 Sodium 135 L Potassium Chloride 97.1 L Carbon Dioxide BUN 73 H Creatinine 2.2 H Glucose 117 H POC Glucose 123 H Lactic Acid Calcium Phosphorus 1.70 L Magnesium Direct Bilirubin AST ALT Alkaline Phosphatase Lactate Dehydrogenase Troponin T C-Reactive Protein Total Protein Albumin Prealbumin Triglycerides Cholesterol LDL Cholesterol Direct HDL Cholesterol Urine pH Urine WBC (Auto) Urine Creatinine Urine Total Protein Fluid Total Protein Vancomycin Trough Rheumatoid Factor Complement C4 Miscellaneous Test Crossmatch 10/26/16 10/26/16 10/26/16 12:12 17:29 23:42 WBC RBC Hgb Hct MCV MCH MCHC RDW Plt Count Lymph % (Auto) [place] % (Auto) Lymph # [place] # Baso # Seg Neutrophils % Seg Neuts % (Manual) Lymphocytes % (Manual) Monocytes % (Manual) Eosinophils % (Manual) Basophils % (Manual) Nucleated RBC % Seg Neutrophils # Seg Neutrophils # Man Lymphocytes # (Manual) Monocytes # (Manual) Eosinophils # (Manual) PT INR Fibrinogen dRVVT Confirm Interp Factor V Activity POC ABG pH POC ABG pCO2 POC ABG pO2 Sodium Potassium Chloride Carbon Dioxide BUN Creatinine Glucose POC Glucose 126 H 161 H 118 H Lactic Acid Calcium Phosphorus Magnesium Direct Bilirubin AST ALT Alkaline Phosphatase Lactate Dehydrogenase Troponin T C-Reactive Protein Total Protein Albumin Prealbumin Triglycerides Cholesterol LDL Cholesterol Direct HDL Cholesterol Urine pH Urine WBC (Auto) Urine Creatinine Urine Total Protein Fluid Total Protein Vancomycin Trough Rheumatoid Factor Complement C4 Miscellaneous Test Crossmatch 10/27/16 10/27/16 10/27/16 05:03 06:30 06:30 WBC 13.9 H RBC 3.09 L Hgb 9.2 L Hct 27.5 L MCV MCH MCHC RDW 17.0 H Plt Count Lymph % (Auto) [place] % (Auto) Lymph # [place] # Baso # Seg Neutrophils % Seg Neuts % (Manual) 78.0 H Lymphocytes % (Manual) Monocytes % (Manual) Eosinophils % (Manual) Basophils % (Manual) Nucleated RBC % 2.0 H Seg Neutrophils # Seg Neutrophils # Man 10.8 H Lymphocytes # (Manual) Monocytes # (Manual) 1.0 H Eosinophils # (Manual) PT INR Fibrinogen dRVVT Confirm Interp Factor V Activity POC ABG pH POC ABG pCO2 POC ABG pO2 Sodium Potassium Chloride Carbon Dioxide BUN 40 H Creatinine 1.5 H Glucose 135 H POC Glucose 107 H Lactic Acid Calcium 8.3 L Phosphorus 1.30 L D Magnesium Direct Bilirubin AST ALT Alkaline Phosphatase Lactate Dehydrogenase Troponin T C-Reactive Protein Total Protein Albumin Prealbumin Triglycerides Cholesterol LDL Cholesterol Direct HDL Cholesterol Urine pH Urine WBC (Auto) Urine Creatinine Urine Total Protein Fluid Total Protein Vancomycin Trough Rheumatoid Factor Complement C4 Miscellaneous Test Crossmatch 10/27/16 10/27/16 10/27/16 13:27 18:07 23:40 WBC RBC Hgb Hct MCV MCH MCHC RDW Plt Count Lymph % (Auto) [place] % (Auto) Lymph # [place] # Baso # Seg Neutrophils % Seg Neuts % (Manual) Lymphocytes % (Manual) Monocytes % (Manual) Eosinophils % (Manual) Basophils % (Manual) Nucleated RBC % Seg Neutrophils # Seg Neutrophils # Man Lymphocytes # (Manual) Monocytes # (Manual) Eosinophils # (Manual) PT INR Fibrinogen dRVVT Confirm Interp Factor V Activity POC ABG pH POC ABG pCO2 POC ABG pO2 Sodium Potassium Chloride Carbon Dioxide BUN Creatinine Glucose POC Glucose 117 H 121 H 118 H Lactic Acid Calcium Phosphorus Magnesium Direct Bilirubin AST ALT Alkaline Phosphatase Lactate Dehydrogenase Troponin T C-Reactive Protein Total Protein Albumin Prealbumin Triglycerides Cholesterol LDL Cholesterol Direct HDL Cholesterol Urine pH Urine WBC (Auto) Urine Creatinine Urine Total Protein Fluid Total Protein Vancomycin Trough Rheumatoid Factor Complement C4 Miscellaneous Test Crossmatch 10/28/16 10/28/16 10/28/16 05:48 06:45 06:45 WBC 14.7 H RBC 3.05 L Hgb 9.0 L Hct 26.9 L MCV MCH MCHC RDW 16.8 H Plt Count Lymph % (Auto) 8.2 L [place] % (Auto) 8.4 H Lymph # [place] # 1.2 H Baso # Seg Neutrophils % 81.9 H Seg Neuts % (Manual) Lymphocytes % (Manual) Monocytes % (Manual) Eosinophils % (Manual) Basophils % (Manual) Nucleated RBC % Seg Neutrophils # 12.1 H Seg Neutrophils # Man Lymphocytes # (Manual) Monocytes # (Manual) Eosinophils # (Manual) PT INR Fibrinogen dRVVT Confirm Interp Factor V Activity POC ABG pH POC ABG pCO2 POC ABG pO2 Sodium Potassium Chloride Carbon Dioxide BUN 60 H Creatinine 1.9 H Glucose 120 H POC Glucose 114 H Lactic Acid Calcium Phosphorus Magnesium Direct Bilirubin AST ALT Alkaline Phosphatase Lactate Dehydrogenase Troponin T C-Reactive Protein Total Protein Albumin Prealbumin Triglycerides Cholesterol LDL Cholesterol Direct HDL Cholesterol Urine pH Urine WBC (Auto) Urine Creatinine Urine Total Protein Fluid Total Protein Vancomycin Trough Rheumatoid Factor Complement C4 Miscellaneous Test Crossmatch 10/28/16 10/28/16 10/29/16 17:08 23:50 05:10 WBC RBC Hgb Hct MCV MCH MCHC RDW Plt Count Lymph % (Auto) [place] % (Auto) Lymph # [place] # Baso # Seg Neutrophils % Seg Neuts % (Manual) Lymphocytes % (Manual) Monocytes % (Manual) Eosinophils % (Manual) Basophils % (Manual) Nucleated RBC % Seg Neutrophils # Seg Neutrophils # Man Lymphocytes # (Manual) Monocytes # (Manual) Eosinophils # (Manual) PT INR Fibrinogen dRVVT Confirm Interp Factor V Activity POC ABG pH POC ABG pCO2 POC ABG pO2 Sodium Potassium Chloride Carbon Dioxide BUN Creatinine Glucose POC Glucose 109 H 110 H 124 H Lactic Acid Calcium Phosphorus Magnesium Direct Bilirubin AST ALT Alkaline Phosphatase Lactate Dehydrogenase Troponin T C-Reactive Protein Total Protein Albumin Prealbumin Triglycerides Cholesterol LDL Cholesterol Direct HDL Cholesterol Urine pH Urine WBC (Auto) Urine Creatinine Urine Total Protein Fluid Total Protein Vancomycin Trough Rheumatoid Factor Complement C4 Miscellaneous Test Crossmatch 10/29/16 10/29/16 10/29/16 07:45 07:45 12:19 WBC 14.7 H RBC 3.15 L Hgb 9.3 L Hct 28.9 L MCV MCH MCHC RDW 17.0 H Plt Count Lymph % (Auto) 11.9 L [place] % (Auto) 8.6 H Lymph # [place] # 1.3 H Baso # Seg Neutrophils % 78.1 H Seg Neuts % (Manual) Lymphocytes % (Manual) Monocytes % (Manual) Eosinophils % (Manual) Basophils % (Manual) Nucleated RBC % Seg Neutrophils # 11.4 H Seg Neutrophils # Man Lymphocytes # (Manual) Monocytes # (Manual) Eosinophils # (Manual) PT INR Fibrinogen dRVVT Confirm Interp Factor V Activity POC ABG pH POC ABG pCO2 POC ABG pO2 Sodium Potassium 5.1 H Chloride Carbon Dioxide 19 L BUN 78 H Creatinine 2.2 H Glucose 116 H POC Glucose 118 H Lactic Acid Calcium Phosphorus Magnesium Direct Bilirubin AST ALT Alkaline Phosphatase Lactate Dehydrogenase Troponin T C-Reactive Protein Total Protein Albumin Prealbumin Triglycerides Cholesterol LDL Cholesterol Direct HDL Cholesterol Urine pH Urine WBC (Auto) Urine Creatinine Urine Total Protein Fluid Total Protein Vancomycin Trough Rheumatoid Factor Complement C4 Miscellaneous Test Crossmatch 10/29/16 10/30/16 10/30/16 17:49 01:52 03:28 WBC RBC Hgb Hct MCV MCH MCHC RDW Plt Count Lymph % (Auto) [place] % (Auto) Lymph # [place] # Baso # Seg Neutrophils % Seg Neuts % (Manual) Lymphocytes % (Manual) Monocytes % (Manual) Eosinophils % (Manual) Basophils % (Manual) Nucleated RBC % Seg Neutrophils # Seg Neutrophils # Man Lymphocytes # (Manual) Monocytes # (Manual) Eosinophils # (Manual) PT INR Fibrinogen dRVVT Confirm Interp Factor V Activity POC ABG pH POC ABG pCO2 POC ABG pO2 Sodium Potassium 5.4 H Chloride 97.5 L Carbon Dioxide 19 L BUN 90 H Creatinine 2.5 H Glucose POC Glucose 120 H 129 H Lactic Acid Calcium Phosphorus 5.20 H Magnesium Direct Bilirubin AST ALT Alkaline Phosphatase Lactate Dehydrogenase Troponin T C-Reactive Protein Total Protein Albumin Prealbumin Triglycerides Cholesterol LDL Cholesterol Direct HDL Cholesterol Urine pH Urine WBC (Auto) Urine Creatinine Urine Total Protein Fluid Total Protein Vancomycin Trough Rheumatoid Factor Complement C4 Miscellaneous Test Crossmatch 10/30/16 10/30/16 10/30/16 03:28 08:19 08:19 WBC 11.6 H 15.9 H RBC 2.75 L 2.82 L Hgb 7.9 L 8.3 L Hct 24.2 L 25.2 L MCV MCH MCHC RDW 16.7 H 17.2 H Plt Count Lymph % (Auto) [place] % (Auto) 9.8 H Lymph # [place] # 1.1 H Baso # Seg Neutrophils % 74.2 H Seg Neuts % (Manual) Lymphocytes % (Manual) Monocytes % (Manual) Eosinophils % (Manual) Basophils % (Manual) Nucleated RBC % Seg Neutrophils # 8.6 H Seg Neutrophils # Man Lymphocytes # (Manual) Monocytes # (Manual) Eosinophils # (Manual) PT INR Fibrinogen dRVVT Confirm Interp Factor V Activity POC ABG pH POC ABG pCO2 POC ABG pO2 Sodium Potassium 5.3 H Chloride 97.4 L Carbon Dioxide 19 L BUN 93 H Creatinine 2.6 H Glucose POC Glucose Lactic Acid Calcium Phosphorus Magnesium Direct Bilirubin AST ALT Alkaline Phosphatase Lactate Dehydrogenase Troponin T C-Reactive Protein Total Protein Albumin Prealbumin Triglycerides Cholesterol LDL Cholesterol Direct HDL Cholesterol Urine pH Urine WBC (Auto) Urine Creatinine Urine Total Protein Fluid Total Protein Vancomycin Trough Rheumatoid Factor Complement C4 Miscellaneous Test Crossmatch 10/30/16 10/30/16 10/31/16 17:11 23:56 00:40 WBC RBC Hgb Hct MCV MCH MCHC RDW Plt Count Lymph % (Auto) [place] % (Auto) Lymph # [place] # Baso # Seg Neutrophils % Seg Neuts % (Manual) Lymphocytes % (Manual) Monocytes % (Manual) Eosinophils % (Manual) Basophils % (Manual) Nucleated RBC % Seg Neutrophils # Seg Neutrophils # Man Lymphocytes # (Manual) Monocytes # (Manual) Eosinophils # (Manual) PT INR Fibrinogen dRVVT Confirm Interp Factor V Activity POC ABG pH POC ABG pCO2 POC ABG pO2 Sodium Potassium Chloride Carbon Dioxide BUN Creatinine Glucose POC Glucose 106 H 117 H 120 H Lactic Acid Calcium Phosphorus Magnesium Direct Bilirubin AST ALT Alkaline Phosphatase Lactate Dehydrogenase Troponin T C-Reactive Protein Total Protein Albumin Prealbumin Triglycerides Cholesterol LDL Cholesterol Direct HDL Cholesterol Urine pH Urine WBC (Auto) Urine Creatinine Urine Total Protein Fluid Total Protein Vancomycin Trough Rheumatoid Factor Complement C4 Miscellaneous Test Crossmatch 10/31/16 10/31/16 10/31/16 05:43 07:15 07:15 WBC 12.1 H RBC 2.63 L Hgb 7.7 L Hct 23.3 L MCV MCH MCHC RDW 16.7 H Plt Count Lymph % (Auto) 11.7 L [place] % (Auto) 7.7 H Lymph # [place] # 0.9 H Baso # Seg Neutrophils % 78.0 H Seg Neuts % (Manual) Lymphocytes % (Manual) Monocytes % (Manual) Eosinophils % (Manual) Basophils % (Manual) Nucleated RBC % Seg Neutrophils # 9.4 H Seg Neutrophils # Man Lymphocytes # (Manual) Monocytes # (Manual) Eosinophils # (Manual) PT INR Fibrinogen dRVVT Confirm Interp Factor V Activity POC ABG pH POC ABG pCO2 POC ABG pO2 Sodium Potassium Chloride 96.4 L Carbon Dioxide 21 L BUN 99 H Creatinine 2.6 H Glucose 144 H POC Glucose 125 H Lactic Acid Calcium Phosphorus 4.80 H Magnesium Direct Bilirubin AST ALT Alkaline Phosphatase Lactate Dehydrogenase Troponin T C-Reactive Protein Total Protein Albumin Prealbumin Triglycerides Cholesterol LDL Cholesterol Direct HDL Cholesterol Urine pH Urine WBC (Auto) Urine Creatinine Urine Total Protein Fluid Total Protein Vancomycin Trough Rheumatoid Factor Complement C4 Miscellaneous Test Crossmatch 10/31/16 10/31/16 11/01/16 11:46 18:34 00:20 WBC RBC Hgb Hct MCV MCH MCHC RDW Plt Count Lymph % (Auto) [place] % (Auto) Lymph # [place] # Baso # Seg Neutrophils % Seg Neuts % (Manual) Lymphocytes % (Manual) Monocytes % (Manual) Eosinophils % (Manual) Basophils % (Manual) Nucleated RBC % Seg Neutrophils # Seg Neutrophils # Man Lymphocytes # (Manual) Monocytes # (Manual) Eosinophils # (Manual) PT INR Fibrinogen dRVVT Confirm Interp Factor V Activity POC ABG pH POC ABG pCO2 POC ABG pO2 Sodium Potassium Chloride Carbon Dioxide BUN Creatinine Glucose POC Glucose 159 H 140 H 132 H Lactic Acid Calcium Phosphorus Magnesium Direct Bilirubin AST ALT Alkaline Phosphatase Lactate Dehydrogenase Troponin T C-Reactive Protein Total Protein Albumin Prealbumin Triglycerides Cholesterol LDL Cholesterol Direct HDL Cholesterol Urine pH Urine WBC (Auto) Urine Creatinine Urine Total Protein Fluid Total Protein Vancomycin Trough Rheumatoid Factor Complement C4 Miscellaneous Test Crossmatch 11/01/16 11/01/16 11/01/16 04:55 04:55 06:11 WBC 11.2 H RBC 2.68 L Hgb 7.5 L Hct 23.7 L MCV MCH MCHC RDW 16.1 H Plt Count Lymph % (Auto) [place] % (Auto) 9.8 H Lymph # [place] # 1.1 H Baso # Seg Neutrophils % 70.8 H Seg Neuts % (Manual) Lymphocytes % (Manual) Monocytes % (Manual) Eosinophils % (Manual) Basophils % (Manual) Nucleated RBC % Seg Neutrophils # 7.9 H Seg Neutrophils # Man Lymphocytes # (Manual) Monocytes # (Manual) Eosinophils # (Manual) PT INR Fibrinogen dRVVT Confirm Interp Factor V Activity POC ABG pH POC ABG pCO2 POC ABG pO2 Sodium Potassium 3.3 L D Chloride Carbon Dioxide BUN 61 H Creatinine 1.9 H Glucose 114 H POC Glucose 115 H Lactic Acid Calcium Phosphorus 1.80 L D Magnesium Direct Bilirubin AST ALT Alkaline Phosphatase Lactate Dehydrogenase Troponin T C-Reactive Protein Total Protein Albumin Prealbumin Triglycerides Cholesterol LDL Cholesterol Direct HDL Cholesterol Urine pH Urine WBC (Auto) Urine Creatinine Urine Total Protein Fluid Total Protein Vancomycin Trough Rheumatoid Factor Complement C4 Miscellaneous Test Crossmatch 11/01/16 11/01/16 11/01/16 12:29 18:23 23:58 WBC RBC Hgb Hct MCV MCH MCHC RDW Plt Count Lymph % (Auto) [place] % (Auto) Lymph # [place] # Baso # Seg Neutrophils % Seg Neuts % (Manual) Lymphocytes % (Manual) Monocytes % (Manual) Eosinophils % (Manual) Basophils % (Manual) Nucleated RBC % Seg Neutrophils # Seg Neutrophils # Man Lymphocytes # (Manual) Monocytes # (Manual) Eosinophils # (Manual) PT INR Fibrinogen dRVVT Confirm Interp Factor V Activity POC ABG pH POC ABG pCO2 POC ABG pO2 Sodium Potassium Chloride Carbon Dioxide BUN Creatinine Glucose POC Glucose 142 H 143 H 128 H Lactic Acid Calcium Phosphorus Magnesium Direct Bilirubin AST ALT Alkaline Phosphatase Lactate Dehydrogenase Troponin T C-Reactive Protein Total Protein Albumin Prealbumin Triglycerides Cholesterol LDL Cholesterol Direct HDL Cholesterol Urine pH Urine WBC (Auto) Urine Creatinine Urine Total Protein Fluid Total Protein Vancomycin Trough Rheumatoid Factor Complement C4 Miscellaneous Test Crossmatch 11/02/16 11/02/16 11/02/16 04:16 05:29 11:58 WBC RBC Hgb Hct MCV MCH MCHC RDW Plt Count Lymph % (Auto) [place] % (Auto) Lymph # [place] # Baso # Seg Neutrophils % Seg Neuts % (Manual) Lymphocytes % (Manual) Monocytes % (Manual) Eosinophils % (Manual) Basophils % (Manual) Nucleated RBC % Seg Neutrophils # Seg Neutrophils # Man Lymphocytes # (Manual) Monocytes # (Manual) Eosinophils # (Manual) PT INR Fibrinogen dRVVT Confirm Interp Factor V Activity POC ABG pH POC ABG pCO2 POC ABG pO2 Sodium Potassium 3.1 L Chloride Carbon Dioxide BUN 73 H Creatinine 2.3 H Glucose 112 H POC Glucose 135 H 149 H Lactic Acid Calcium Phosphorus Magnesium Direct Bilirubin AST ALT Alkaline Phosphatase Lactate Dehydrogenase Troponin T C-Reactive Protein Total Protein Albumin Prealbumin Triglycerides Cholesterol LDL Cholesterol Direct HDL Cholesterol Urine pH Urine WBC (Auto) Urine Creatinine Urine Total Protein Fluid Total Protein Vancomycin Trough Rheumatoid Factor Complement C4 Miscellaneous Test Crossmatch 11/02/16 11/02/16 11/03/16 17:42 22:54 06:00 WBC RBC Hgb Hct MCV MCH MCHC RDW Plt Count Lymph % (Auto) [place] % (Auto) Lymph # [place] # Baso # Seg Neutrophils % Seg Neuts % (Manual) Lymphocytes % (Manual) Monocytes % (Manual) Eosinophils % (Manual) Basophils % (Manual) Nucleated RBC % Seg Neutrophils # Seg Neutrophils # Man Lymphocytes # (Manual) Monocytes # (Manual) Eosinophils # (Manual) PT INR Fibrinogen dRVVT Confirm Interp Factor V Activity POC ABG pH POC ABG pCO2 POC ABG pO2 Sodium Potassium Chloride 96.7 L Carbon Dioxide BUN 41 H Creatinine 1.5 H Glucose 145 H POC Glucose 182 H 115 H Lactic Acid Calcium Phosphorus 1.60 L D Magnesium 1.50 L Direct Bilirubin AST ALT Alkaline Phosphatase Lactate Dehydrogenase Troponin T C-Reactive Protein Total Protein Albumin Prealbumin Triglycerides Cholesterol LDL Cholesterol Direct HDL Cholesterol Urine pH Urine WBC (Auto) Urine Creatinine Urine Total Protein Fluid Total Protein Vancomycin Trough Rheumatoid Factor Complement C4 Miscellaneous Test Crossmatch 11/03/16 11/03/16 11/03/16 11:53 17:45 23:37 WBC RBC Hgb Hct MCV MCH MCHC RDW Plt Count Lymph % (Auto) [place] % (Auto) Lymph # [place] # Baso # Seg Neutrophils % Seg Neuts % (Manual) Lymphocytes % (Manual) Monocytes % (Manual) Eosinophils % (Manual) Basophils % (Manual) Nucleated RBC % Seg Neutrophils # Seg Neutrophils # Man Lymphocytes # (Manual) Monocytes # (Manual) Eosinophils # (Manual) PT INR Fibrinogen dRVVT Confirm Interp Factor V Activity POC ABG pH POC ABG pCO2 POC ABG pO2 Sodium Potassium Chloride Carbon Dioxide BUN Creatinine Glucose POC Glucose 131 H 134 H 113 H Lactic Acid Calcium Phosphorus Magnesium Direct Bilirubin AST ALT Alkaline Phosphatase Lactate Dehydrogenase Troponin T C-Reactive Protein Total Protein Albumin Prealbumin Triglycerides Cholesterol LDL Cholesterol Direct HDL Cholesterol Urine pH Urine WBC (Auto) Urine Creatinine Urine Total Protein Fluid Total Protein Vancomycin Trough Rheumatoid Factor Complement C4 Miscellaneous Test Crossmatch 11/04/16 11/04/16 11/04/16 05:41 06:00 12:10 WBC RBC Hgb Hct MCV MCH MCHC RDW Plt Count Lymph % (Auto) [place] % (Auto) Lymph # [place] # Baso # Seg Neutrophils % Seg Neuts % (Manual) Lymphocytes % (Manual) Monocytes % (Manual) Eosinophils % (Manual) Basophils % (Manual) Nucleated RBC % Seg Neutrophils # Seg Neutrophils # Man Lymphocytes # (Manual) Monocytes # (Manual) Eosinophils # (Manual) PT INR Fibrinogen dRVVT Confirm Interp Factor V Activity POC ABG pH POC ABG pCO2 POC ABG pO2 Sodium Potassium Chloride 96.7 L Carbon Dioxide BUN 52 H Creatinine 1.9 H Glucose 126 H POC Glucose 137 H 191 H Lactic Acid Calcium Phosphorus Magnesium Direct Bilirubin AST ALT Alkaline Phosphatase Lactate Dehydrogenase Troponin T C-Reactive Protein Total Protein Albumin Prealbumin Triglycerides Cholesterol LDL Cholesterol Direct HDL Cholesterol Urine pH Urine WBC (Auto) Urine Creatinine Urine Total Protein Fluid Total Protein Vancomycin Trough Rheumatoid Factor Complement C4 Miscellaneous Test Crossmatch 11/04/16 11/05/16 11/05/16 22:57 03:10 05:10 WBC RBC Hgb Hct MCV MCH MCHC RDW Plt Count Lymph % (Auto) [place] % (Auto) Lymph # [place] # Baso # Seg Neutrophils % Seg Neuts % (Manual) Lymphocytes % (Manual) Monocytes % (Manual) Eosinophils % (Manual) Basophils % (Manual) Nucleated RBC % Seg Neutrophils # Seg Neutrophils # Man Lymphocytes # (Manual) Monocytes # (Manual) Eosinophils # (Manual) PT INR Fibrinogen dRVVT Confirm Interp Factor V Activity POC ABG pH POC ABG pCO2 POC ABG pO2 Sodium 136 L Potassium Chloride 97.2 L Carbon Dioxide BUN 32 H Creatinine 1.3 H Glucose 123 H POC Glucose 125 H 108 H Lactic Acid Calcium 7.8 L Phosphorus Magnesium Direct Bilirubin AST ALT Alkaline Phosphatase Lactate Dehydrogenase Troponin T C-Reactive Protein Total Protein Albumin Prealbumin Triglycerides Cholesterol LDL Cholesterol Direct HDL Cholesterol Urine pH Urine WBC (Auto) Urine Creatinine Urine Total Protein Fluid Total Protein Vancomycin Trough Rheumatoid Factor Complement C4 Miscellaneous Test Crossmatch 11/05/16 11/05/16 11/05/16 12:23 13:09 13:25 WBC RBC Hgb Hct MCV MCH MCHC RDW Plt Count Lymph % (Auto) [place] % (Auto) Lymph # [place] # Baso # Seg Neutrophils % Seg Neuts % (Manual) Lymphocytes % (Manual) Monocytes % (Manual) Eosinophils % (Manual) Basophils % (Manual) Nucleated RBC % Seg Neutrophils # Seg Neutrophils # Man Lymphocytes # (Manual) Monocytes # (Manual) Eosinophils # (Manual) PT INR Fibrinogen dRVVT Confirm Interp Factor V Activity POC ABG pH POC ABG pCO2 POC ABG pO2 Sodium Potassium Chloride Carbon Dioxide BUN Creatinine Glucose POC Glucose 124 H Lactic Acid Calcium Phosphorus Magnesium Direct Bilirubin AST ALT Alkaline Phosphatase Lactate Dehydrogenase Troponin T C-Reactive Protein 11.40 H Total Protein Albumin Prealbumin Triglycerides Cholesterol LDL Cholesterol Direct HDL Cholesterol Urine pH 9.0 H Urine WBC (Auto) Urine Creatinine Urine Total Protein Fluid Total Protein Vancomycin Trough Rheumatoid Factor Complement C4 Miscellaneous Test Crossmatch 11/05/16 11/05/16 11/05/16 13:25 17:54 23:42 WBC RBC Hgb Hct MCV MCH MCHC RDW Plt Count Lymph % (Auto) [place] % (Auto) Lymph # [place] # Baso # Seg Neutrophils % Seg Neuts % (Manual) Lymphocytes % (Manual) Monocytes % (Manual) Eosinophils % (Manual) Basophils % (Manual) Nucleated RBC % Seg Neutrophils # Seg Neutrophils # Man Lymphocytes # (Manual) Monocytes # (Manual) Eosinophils # (Manual) PT INR Fibrinogen dRVVT Confirm Interp Factor V Activity POC ABG pH POC ABG pCO2 POC ABG pO2 Sodium Potassium Chloride Carbon Dioxide BUN Creatinine Glucose POC Glucose 114 H 134 H Lactic Acid Calcium Phosphorus Magnesium Direct Bilirubin AST ALT Alkaline Phosphatase Lactate Dehydrogenase Troponin T C-Reactive Protein Total Protein Albumin Prealbumin Triglycerides Cholesterol LDL Cholesterol Direct HDL Cholesterol Urine pH Urine WBC (Auto) Urine Creatinine Urine Total Protein Fluid Total Protein Vancomycin Trough Rheumatoid Factor Complement C4 Miscellaneous Test Flexitest 1 H Crossmatch 11/06/16 11/06/16 11/06/16 04:56 06:25 06:25 WBC RBC 2.50 L Hgb 7.3 L Hct 22.5 L MCV MCH MCHC RDW 16.9 H Plt Count Lymph % (Auto) [place] % (Auto) 10.5 H Lymph # [place] # 1.1 H Baso # Seg Neutrophils % Seg Neuts % (Manual) Lymphocytes % (Manual) Monocytes % (Manual) Eosinophils % (Manual) Basophils % (Manual) Nucleated RBC % Seg Neutrophils # Seg Neutrophils # Man Lymphocytes # (Manual) Monocytes # (Manual) Eosinophils # (Manual) PT INR Fibrinogen dRVVT Confirm Interp Factor V Activity POC ABG pH POC ABG pCO2 POC ABG pO2 Sodium Potassium 5.1 H Chloride 95.9 L Carbon Dioxide BUN 52 H Creatinine 1.8 H Glucose 117 H POC Glucose 120 H Lactic Acid Calcium Phosphorus Magnesium Direct Bilirubin AST 103 H ALT 77 H Alkaline Phosphatase 285 H Lactate Dehydrogenase Troponin T C-Reactive Protein Total Protein 6.2 L Albumin 1.8 L Prealbumin 0.180 L Triglycerides Cholesterol LDL Cholesterol Direct HDL Cholesterol Urine pH Urine WBC (Auto) Urine Creatinine Urine Total Protein Fluid Total Protein Vancomycin Trough Rheumatoid Factor Complement C4 Miscellaneous Test Crossmatch 11/06/16 11/06/16 11/06/16 11:56 17:14 23:52 WBC RBC Hgb Hct MCV MCH MCHC RDW Plt Count Lymph % (Auto) [place] % (Auto) Lymph # [place] # Baso # Seg Neutrophils % Seg Neuts % (Manual) Lymphocytes % (Manual) Monocytes % (Manual) Eosinophils % (Manual) Basophils % (Manual) Nucleated RBC % Seg Neutrophils # Seg Neutrophils # Man Lymphocytes # (Manual) Monocytes # (Manual) Eosinophils # (Manual) PT INR Fibrinogen dRVVT Confirm Interp Factor V Activity POC ABG pH POC ABG pCO2 POC ABG pO2 Sodium Potassium Chloride Carbon Dioxide BUN Creatinine Glucose POC Glucose 141 H 125 H 130 H Lactic Acid Calcium Phosphorus Magnesium Direct Bilirubin AST ALT Alkaline Phosphatase Lactate Dehydrogenase Troponin T C-Reactive Protein Total Protein Albumin Prealbumin Triglycerides Cholesterol LDL Cholesterol Direct HDL Cholesterol Urine pH Urine WBC (Auto) Urine Creatinine Urine Total Protein Fluid Total Protein Vancomycin Trough Rheumatoid Factor Complement C4 Miscellaneous Test Crossmatch 11/07/16 11/07/16 11/07/16 06:30 06:30 09:37 WBC RBC 2.18 L Hgb 6.3 L Hct 19.7 L* MCV MCH MCHC RDW 16.8 H Plt Count Lymph % (Auto) [place] % (Auto) 10.0 H Lymph # [place] # 1.0 H Baso # Seg Neutrophils % Seg Neuts % (Manual) Lymphocytes % (Manual) Monocytes % (Manual) Eosinophils % (Manual) Basophils % (Manual) Nucleated RBC % Seg Neutrophils # Seg Neutrophils # Man Lymphocytes # (Manual) Monocytes # (Manual) Eosinophils # (Manual) PT INR Fibrinogen dRVVT Confirm Interp Factor V Activity POC ABG pH POC ABG pCO2 POC ABG pO2 Sodium 135 L Potassium Chloride 95.6 L Carbon Dioxide BUN 70 H Creatinine 2.0 H Glucose 126 H POC Glucose Lactic Acid Calcium Phosphorus Magnesium Direct Bilirubin AST ALT Alkaline Phosphatase Lactate Dehydrogenase Troponin T C-Reactive Protein Total Protein Albumin Prealbumin Triglycerides Cholesterol LDL Cholesterol Direct HDL Cholesterol Urine pH Urine WBC (Auto) Urine Creatinine Urine Total Protein Fluid Total Protein Vancomycin Trough Rheumatoid Factor Complement C4 Miscellaneous Test Crossmatch See Detail 11/07/16 11/07/16 11/07/16 12:52 18:51 21:26 WBC RBC Hgb Hct MCV MCH MCHC RDW Plt Count Lymph % (Auto) [place] % (Auto) Lymph # [place] # Baso # Seg Neutrophils % Seg Neuts % (Manual) Lymphocytes % (Manual) Monocytes % (Manual) Eosinophils % (Manual) Basophils % (Manual) Nucleated RBC % Seg Neutrophils # Seg Neutrophils # Man Lymphocytes # (Manual) Monocytes # (Manual) Eosinophils # (Manual) PT INR Fibrinogen dRVVT Confirm Interp Factor V Activity POC ABG pH 7.523 H POC ABG pCO2 34.6 L POC ABG pO2 53 L Sodium Potassium Chloride Carbon Dioxide BUN Creatinine Glucose POC Glucose 142 H 155 H Lactic Acid Calcium Phosphorus Magnesium Direct Bilirubin AST ALT Alkaline Phosphatase Lactate Dehydrogenase Troponin T C-Reactive Protein Total Protein Albumin Prealbumin Triglycerides Cholesterol LDL Cholesterol Direct HDL Cholesterol Urine pH Urine WBC (Auto) Urine Creatinine Urine Total Protein Fluid Total Protein Vancomycin Trough Rheumatoid Factor Complement C4 Miscellaneous Test Crossmatch 11/07/16 11/08/16 11/08/16 21:34 13:03 23:37 WBC RBC 2.63 L Hgb 7.7 L Hct 22.7 L MCV MCH MCHC RDW 17.0 H Plt Count Lymph % (Auto) [place] % (Auto) Lymph # [place] # Baso # Seg Neutrophils % Seg Neuts % (Manual) Lymphocytes % (Manual) Monocytes % (Manual) Eosinophils % (Manual) Basophils % (Manual) Nucleated RBC % Seg Neutrophils # Seg Neutrophils # Man Lymphocytes # (Manual) Monocytes # (Manual) Eosinophils # (Manual) PT INR Fibrinogen dRVVT Confirm Interp Factor V Activity POC ABG pH 7.478 H POC ABG pCO2 34.0 L POC ABG pO2 50 L Sodium Potassium Chloride Carbon Dioxide BUN Creatinine Glucose POC Glucose 113 H Lactic Acid Calcium Phosphorus Magnesium Direct Bilirubin AST ALT Alkaline Phosphatase Lactate Dehydrogenase Troponin T C-Reactive Protein Total Protein Albumin Prealbumin Triglycerides Cholesterol LDL Cholesterol Direct HDL Cholesterol Urine pH Urine WBC (Auto) Urine Creatinine Urine Total Protein Fluid Total Protein Vancomycin Trough Rheumatoid Factor Complement C4 Miscellaneous Test Crossmatch 11/09/16 11/09/16 11/09/16 04:35 10:15 18:21 WBC RBC 2.68 L Hgb 7.8 L Hct 23.3 L MCV MCH MCHC RDW 17.0 H Plt Count Lymph % (Auto) [place] % (Auto) 12.1 H Lymph # [place] # 1.1 H Baso # Seg Neutrophils % Seg Neuts % (Manual) Lymphocytes % (Manual) Monocytes % (Manual) Eosinophils % (Manual) Basophils % (Manual) Nucleated RBC % Seg Neutrophils # Seg Neutrophils # Man Lymphocytes # (Manual) Monocytes # (Manual) Eosinophils # (Manual) PT INR Fibrinogen dRVVT Confirm Interp Factor V Activity POC ABG pH POC ABG pCO2 POC ABG pO2 Sodium Potassium Chloride Carbon Dioxide BUN 51 H Creatinine 1.8 H Glucose POC Glucose 60 L Lactic Acid Calcium 8.3 L Phosphorus Magnesium Direct Bilirubin AST ALT Alkaline Phosphatase Lactate Dehydrogenase Troponin T C-Reactive Protein Total Protein Albumin Prealbumin Triglycerides Cholesterol LDL Cholesterol Direct HDL Cholesterol Urine pH Urine WBC (Auto) Urine Creatinine Urine Total Protein Fluid Total Protein Vancomycin Trough Rheumatoid Factor Complement C4 Miscellaneous Test Crossmatch 11/09/16 11/10/16 11/10/16 18:55 07:00 11:51 WBC RBC Hgb Hct MCV MCH MCHC RDW Plt Count Lymph % (Auto) [place] % (Auto) Lymph # [place] # Baso # Seg Neutrophils % Seg Neuts % (Manual) Lymphocytes % (Manual) Monocytes % (Manual) Eosinophils % (Manual) Basophils % (Manual) Nucleated RBC % Seg Neutrophils # Seg Neutrophils # Man Lymphocytes # (Manual) Monocytes # (Manual) Eosinophils # (Manual) PT INR Fibrinogen dRVVT Confirm Interp Factor V Activity POC ABG pH POC ABG pCO2 POC ABG pO2 Sodium Potassium 3.0 L D Chloride 97.4 L Carbon Dioxide BUN 28 H Creatinine 1.3 H Glucose POC Glucose 68 L 120 H Lactic Acid Calcium 7.8 L Phosphorus Magnesium Direct Bilirubin AST ALT Alkaline Phosphatase Lactate Dehydrogenase Troponin T C-Reactive Protein Total Protein Albumin Prealbumin Triglycerides Cholesterol LDL Cholesterol Direct HDL Cholesterol Urine pH Urine WBC (Auto) Urine Creatinine Urine Total Protein Fluid Total Protein Vancomycin Trough Rheumatoid Factor Complement C4 Miscellaneous Test Crossmatch 11/10/16 11/11/16 11/11/16 14:20 06:59 06:59 WBC RBC 2.81 L Hgb 8.1 L Hct 24.4 L MCV MCH MCHC RDW 16.4 H Plt Count Lymph % (Auto) [place] % (Auto) 10.8 H Lymph # [place] # 1.0 H Baso # Seg Neutrophils % Seg Neuts % (Manual) Lymphocytes % (Manual) Monocytes % (Manual) Eosinophils % (Manual) Basophils % (Manual) Nucleated RBC % Seg Neutrophils # Seg Neutrophils # Man Lymphocytes # (Manual) Monocytes # (Manual) Eosinophils # (Manual) PT INR Fibrinogen dRVVT Confirm Interp Factor V Activity POC ABG pH POC ABG pCO2 POC ABG pO2 Sodium Potassium Chloride Carbon Dioxide BUN Creatinine Glucose POC Glucose Lactic Acid Calcium Phosphorus Magnesium Direct Bilirubin AST ALT Alkaline Phosphatase Lactate Dehydrogenase 196 H Troponin T C-Reactive Protein Total Protein 6.1 L Albumin Prealbumin Triglycerides Cholesterol LDL Cholesterol Direct HDL Cholesterol Urine pH Urine WBC (Auto) Urine Creatinine Urine Total Protein Fluid Total Protein < 3.0 L Vancomycin Trough Rheumatoid Factor Complement C4 Miscellaneous Test Crossmatch 11/11/16 11/11/16 11/12/16 06:59 09:50 04:00 WBC RBC Hgb Hct MCV MCH MCHC RDW Plt Count Lymph % (Auto) [place] % (Auto) Lymph # [place] # Baso # Seg Neutrophils % Seg Neuts % (Manual) Lymphocytes % (Manual) Monocytes % (Manual) Eosinophils % (Manual) Basophils % (Manual) Nucleated RBC % Seg Neutrophils # Seg Neutrophils # Man Lymphocytes # (Manual) Monocytes # (Manual) Eosinophils # (Manual) PT INR 1.18 H Fibrinogen dRVVT Confirm Interp Factor V Activity POC ABG pH POC ABG pCO2 POC ABG pO2 Sodium 136 L 133 L Potassium Chloride 96.1 L 94.8 L Carbon Dioxide 21 L BUN 37 H 42 H Creatinine 1.8 H 2.0 H Glucose POC Glucose Lactic Acid Calcium Phosphorus Magnesium Direct Bilirubin AST ALT Alkaline Phosphatase Lactate Dehydrogenase Troponin T C-Reactive Protein Total Protein Albumin Prealbumin Triglycerides Cholesterol LDL Cholesterol Direct HDL Cholesterol Urine pH Urine WBC (Auto) Urine Creatinine Urine Total Protein Fluid Total Protein Vancomycin Trough Rheumatoid Factor Complement C4 Miscellaneous Test Crossmatch 11/12/16 11/12/16 11/13/16 04:00 23:55 05:53 WBC RBC Hgb 8.9 L Hct 27.2 L MCV MCH MCHC RDW Plt Count Lymph % (Auto) [place] % (Auto) Lymph # [place] # Baso # Seg Neutrophils % Seg Neuts % (Manual) Lymphocytes % (Manual) Monocytes % (Manual) Eosinophils % (Manual) Basophils % (Manual) Nucleated RBC % Seg Neutrophils # Seg Neutrophils # Man Lymphocytes # (Manual) Monocytes # (Manual) Eosinophils # (Manual) PT INR Fibrinogen dRVVT Confirm Interp Factor V Activity POC ABG pH POC ABG pCO2 POC ABG pO2 Sodium Potassium Chloride Carbon Dioxide BUN Creatinine Glucose POC Glucose 132 H 120 H Lactic Acid Calcium Phosphorus Magnesium Direct Bilirubin AST ALT Alkaline Phosphatase Lactate Dehydrogenase Troponin T C-Reactive Protein Total Protein Albumin Prealbumin Triglycerides Cholesterol LDL Cholesterol Direct HDL Cholesterol Urine pH Urine WBC (Auto) Urine Creatinine Urine Total Protein Fluid Total Protein Vancomycin Trough Rheumatoid Factor Complement C4 Miscellaneous Test Crossmatch 11/13/16 11/13/16 11/13/16 11:43 17:09 23:41 WBC RBC Hgb Hct MCV MCH MCHC RDW Plt Count Lymph % (Auto) [place] % (Auto) Lymph # [place] # Baso # Seg Neutrophils % Seg Neuts % (Manual) Lymphocytes % (Manual) Monocytes % (Manual) Eosinophils % (Manual) Basophils % (Manual) Nucleated RBC % Seg Neutrophils # Seg Neutrophils # Man Lymphocytes # (Manual) Monocytes # (Manual) Eosinophils # (Manual) PT INR Fibrinogen dRVVT Confirm Interp Factor V Activity POC ABG pH POC ABG pCO2 POC ABG pO2 Sodium Potassium Chloride Carbon Dioxide BUN Creatinine Glucose POC Glucose 114 H 113 H 108 H Lactic Acid Calcium Phosphorus Magnesium Direct Bilirubin AST ALT Alkaline Phosphatase Lactate Dehydrogenase Troponin T C-Reactive Protein Total Protein Albumin Prealbumin Triglycerides Cholesterol LDL Cholesterol Direct HDL Cholesterol Urine pH Urine WBC (Auto) Urine Creatinine Urine Total Protein Fluid Total Protein Vancomycin Trough Rheumatoid Factor Complement C4 Miscellaneous Test Crossmatch 11/13/16 11/15/16 11/15/16 Unknown 00:37 03:30 WBC 11.2 H RBC 2.72 L Hgb 7.6 L Hct 23.4 L MCV MCH MCHC RDW 16.5 H Plt Count Lymph % (Auto) [place] % (Auto) Lymph # [place] # Baso # Seg Neutrophils % Seg Neuts % (Manual) Lymphocytes % (Manual) Monocytes % (Manual) Eosinophils % (Manual) Basophils % (Manual) Nucleated RBC % Seg Neutrophils # Seg Neutrophils # Man Lymphocytes # (Manual) Monocytes # (Manual) Eosinophils # (Manual) PT INR Fibrinogen dRVVT Confirm Interp Factor V Activity POC ABG pH POC ABG pCO2 POC ABG pO2 Sodium 135 L Potassium Chloride 95.2 L Carbon Dioxide BUN 52 H Creatinine 2.2 H Glucose POC Glucose 108 H Lactic Acid Calcium Phosphorus Magnesium Direct Bilirubin AST ALT Alkaline Phosphatase Lactate Dehydrogenase Troponin T C-Reactive Protein Total Protein Albumin Prealbumin Triglycerides Cholesterol LDL Cholesterol Direct HDL Cholesterol Urine pH Urine WBC (Auto) Urine Creatinine Urine Total Protein Fluid Total Protein Vancomycin Trough Rheumatoid Factor Complement C4 Miscellaneous Test Crossmatch 11/15/16 11/15/16 11/15/16 03:30 05:04 11:50 WBC RBC Hgb Hct MCV MCH MCHC RDW Plt Count Lymph % (Auto) [place] % (Auto) Lymph # [place] # Baso # Seg Neutrophils % Seg Neuts % (Manual) Lymphocytes % (Manual) Monocytes % (Manual) Eosinophils % (Manual) Basophils % (Manual) Nucleated RBC % Seg Neutrophils # Seg Neutrophils # Man Lymphocytes # (Manual) Monocytes # (Manual) Eosinophils # (Manual) PT INR Fibrinogen dRVVT Confirm Interp Factor V Activity POC ABG pH POC ABG pCO2 POC ABG pO2 Sodium Potassium 3.4 L Chloride Carbon Dioxide BUN 25 H Creatinine 1.5 H Glucose 103 H POC Glucose 121 H 144 H Lactic Acid Calcium Phosphorus Magnesium Direct Bilirubin AST ALT Alkaline Phosphatase Lactate Dehydrogenase Troponin T C-Reactive Protein Total Protein Albumin Prealbumin Triglycerides Cholesterol LDL Cholesterol Direct HDL Cholesterol Urine pH Urine WBC (Auto) Urine Creatinine Urine Total Protein Fluid Total Protein Vancomycin Trough Rheumatoid Factor Complement C4 Miscellaneous Test Crossmatch 11/15/16 11/15/16 11/16/16 21:28 23:20 11:44 WBC RBC Hgb Hct MCV MCH MCHC RDW Plt Count Lymph % (Auto) [place] % (Auto) Lymph # [place] # Baso # Seg Neutrophils % Seg Neuts % (Manual) Lymphocytes % (Manual) Monocytes % (Manual) Eosinophils % (Manual) Basophils % (Manual) Nucleated RBC % Seg Neutrophils # Seg Neutrophils # Man Lymphocytes # (Manual) Monocytes # (Manual) Eosinophils # (Manual) PT INR Fibrinogen dRVVT Confirm Interp Factor V Activity POC ABG pH 7.462 H POC ABG pCO2 POC ABG pO2 71 L Sodium Potassium Chloride Carbon Dioxide BUN Creatinine Glucose POC Glucose 116 H 133 H Lactic Acid Calcium Phosphorus Magnesium Direct Bilirubin AST ALT Alkaline Phosphatase Lactate Dehydrogenase Troponin T C-Reactive Protein Total Protein Albumin Prealbumin Triglycerides Cholesterol LDL Cholesterol Direct HDL Cholesterol Urine pH Urine WBC (Auto) Urine Creatinine Urine Total Protein Fluid Total Protein Vancomycin Trough Rheumatoid Factor Complement C4 Miscellaneous Test Crossmatch 11/16/16 11/16/16 11/16/16 12:20 17:05 23:35 WBC 11.7 H RBC 2.73 L Hgb 7.6 L Hct 23.7 L MCV MCH MCHC RDW 16.6 H Plt Count Lymph % (Auto) [place] % (Auto) Lymph # [place] # Baso # Seg Neutrophils % Seg Neuts % (Manual) Lymphocytes % (Manual) Monocytes % (Manual) Eosinophils % (Manual) Basophils % (Manual) Nucleated RBC % Seg Neutrophils # Seg Neutrophils # Man Lymphocytes # (Manual) Monocytes # (Manual) Eosinophils # (Manual) PT INR Fibrinogen dRVVT Confirm Interp Factor V Activity POC ABG pH POC ABG pCO2 POC ABG pO2 Sodium Potassium Chloride Carbon Dioxide BUN Creatinine Glucose POC Glucose 154 H 125 H Lactic Acid Calcium Phosphorus Magnesium Direct Bilirubin AST ALT Alkaline Phosphatase Lactate Dehydrogenase Troponin T C-Reactive Protein Total Protein Albumin Prealbumin Triglycerides Cholesterol LDL Cholesterol Direct HDL Cholesterol Urine pH Urine WBC (Auto) Urine Creatinine Urine Total Protein Fluid Total Protein Vancomycin Trough Rheumatoid Factor Complement C4 Miscellaneous Test Crossmatch 11/17/16 11/17/16 11/17/16 03:20 03:20 03:20 WBC RBC 2.55 L Hgb 7.3 L Hct 21.9 L MCV MCH MCHC RDW 16.6 H Plt Count Lymph % (Auto) [place] % (Auto) 11.5 H Lymph # [place] # 1.1 H Baso # Seg Neutrophils % Seg Neuts % (Manual) Lymphocytes % (Manual) Monocytes % (Manual) Eosinophils % (Manual) Basophils % (Manual) Nucleated RBC % Seg Neutrophils # Seg Neutrophils # Man Lymphocytes # (Manual) Monocytes # (Manual) Eosinophils # (Manual) PT 16.8 H INR 1.37 H Fibrinogen dRVVT Confirm Interp Factor V Activity POC ABG pH POC ABG pCO2 POC ABG pO2 Sodium Potassium 3.5 L Chloride Carbon Dioxide BUN 21 H Creatinine Glucose POC Glucose Lactic Acid Calcium 7.9 L Phosphorus Magnesium Direct Bilirubin AST ALT Alkaline Phosphatase Lactate Dehydrogenase Troponin T C-Reactive Protein Total Protein Albumin Prealbumin Triglycerides Cholesterol LDL Cholesterol Direct HDL Cholesterol Urine pH Urine WBC (Auto) Urine Creatinine Urine Total Protein Fluid Total Protein Vancomycin Trough Rheumatoid Factor Complement C4 Miscellaneous Test Crossmatch 11/17/16 11/17/16 11/17/16 06:34 11:21 21:22 WBC RBC Hgb Hct MCV MCH MCHC RDW Plt Count Lymph % (Auto) [place] % (Auto) Lymph # [place] # Baso # Seg Neutrophils % Seg Neuts % (Manual) Lymphocytes % (Manual) Monocytes % (Manual) Eosinophils % (Manual) Basophils % (Manual) Nucleated RBC % Seg Neutrophils # Seg Neutrophils # Man Lymphocytes # (Manual) Monocytes # (Manual) Eosinophils # (Manual) PT INR Fibrinogen dRVVT Confirm Interp Factor V Activity POC ABG pH 7.467 H POC ABG pCO2 POC ABG pO2 73 L Sodium Potassium Chloride Carbon Dioxide BUN Creatinine Glucose POC Glucose 121 H 119 H Lactic Acid Calcium Phosphorus Magnesium Direct Bilirubin AST ALT Alkaline Phosphatase Lactate Dehydrogenase Troponin T C-Reactive Protein Total Protein Albumin Prealbumin Triglycerides Cholesterol LDL Cholesterol Direct HDL Cholesterol Urine pH Urine WBC (Auto) Urine Creatinine Urine Total Protein Fluid Total Protein Vancomycin Trough Rheumatoid Factor Complement C4 Miscellaneous Test Crossmatch 11/18/16 11/18/16 11/19/16 12:16 17:19 00:00 WBC RBC Hgb Hct MCV MCH MCHC RDW Plt Count Lymph % (Auto) [place] % (Auto) Lymph # [place] # Baso # Seg Neutrophils % Seg Neuts % (Manual) Lymphocytes % (Manual) Monocytes % (Manual) Eosinophils % (Manual) Basophils % (Manual) Nucleated RBC % Seg Neutrophils # Seg Neutrophils # Man Lymphocytes # (Manual) Monocytes # (Manual) Eosinophils # (Manual) PT INR Fibrinogen dRVVT Confirm Interp Factor V Activity POC ABG pH POC ABG pCO2 POC ABG pO2 Sodium Potassium Chloride Carbon Dioxide BUN Creatinine Glucose POC Glucose 124 H 162 H 139 H Lactic Acid Calcium Phosphorus Magnesium Direct Bilirubin AST ALT Alkaline Phosphatase Lactate Dehydrogenase Troponin T C-Reactive Protein Total Protein Albumin Prealbumin Triglycerides Cholesterol LDL Cholesterol Direct HDL Cholesterol Urine pH Urine WBC (Auto) Urine Creatinine Urine Total Protein Fluid Total Protein Vancomycin Trough Rheumatoid Factor Complement C4 Miscellaneous Test Crossmatch 11/19/16 11/19/16 11/20/16 05:00 12:43 00:40 WBC RBC Hgb Hct MCV MCH MCHC RDW Plt Count Lymph % (Auto) [place] % (Auto) Lymph # [place] # Baso # Seg Neutrophils % Seg Neuts % (Manual) Lymphocytes % (Manual) Monocytes % (Manual) Eosinophils % (Manual) Basophils % (Manual) Nucleated RBC % Seg Neutrophils # Seg Neutrophils # Man Lymphocytes # (Manual) Monocytes # (Manual) Eosinophils # (Manual) PT INR Fibrinogen dRVVT Confirm Interp Factor V Activity POC ABG pH POC ABG pCO2 POC ABG pO2 Sodium Potassium Chloride Carbon Dioxide BUN Creatinine Glucose POC Glucose 110 H 125 H 136 H Lactic Acid Calcium Phosphorus Magnesium Direct Bilirubin AST ALT Alkaline Phosphatase Lactate Dehydrogenase Troponin T C-Reactive Protein Total Protein Albumin Prealbumin Triglycerides Cholesterol LDL Cholesterol Direct HDL Cholesterol Urine pH Urine WBC (Auto) Urine Creatinine Urine Total Protein Fluid Total Protein Vancomycin Trough Rheumatoid Factor Complement C4 Miscellaneous Test Crossmatch 11/20/16 11/20/16 11/20/16 05:00 05:00 05:51 WBC 13.1 H RBC 2.74 L Hgb 7.7 L Hct 23.6 L MCV MCH MCHC RDW 16.9 H Plt Count Lymph % (Auto) [place] % (Auto) 10.8 H Lymph # [place] # 1.4 H Baso # Seg Neutrophils % Seg Neuts % (Manual) Lymphocytes % (Manual) Monocytes % (Manual) Eosinophils % (Manual) Basophils % (Manual) Nucleated RBC % Seg Neutrophils # 7.9 H Seg Neutrophils # Man Lymphocytes # (Manual) Monocytes # (Manual) Eosinophils # (Manual) PT INR Fibrinogen dRVVT Confirm Interp Factor V Activity POC ABG pH POC ABG pCO2 POC ABG pO2 Sodium Potassium Chloride Carbon Dioxide BUN 31 H Creatinine 1.8 H Glucose 129 H POC Glucose 133 H Lactic Acid Calcium Phosphorus Magnesium Direct Bilirubin AST ALT Alkaline Phosphatase Lactate Dehydrogenase Troponin T C-Reactive Protein Total Protein Albumin Prealbumin Triglycerides Cholesterol LDL Cholesterol Direct HDL Cholesterol Urine pH Urine WBC (Auto) Urine Creatinine Urine Total Protein Fluid Total Protein Vancomycin Trough Rheumatoid Factor Complement C4 Miscellaneous Test Crossmatch Allied health notes reviewed: RT
--- NOTE | 2016-11-20 09:54 | Progress Note ---
Assessment and Plan Assessment and plan: 46-year-old woman with a history of hypertension, diabetes, asthma, hyperlipidemia, chronic kidney disease and anxiety , who was brought in by family because, she couldn't get her words out, her face was also twisted, she was admitted for acute CVA and accelerated hypertension, she had a hx of poor adherence with her medications, and uncontrolled htn. Patient's SBP on admission was noted be greater than 260. TPA was started but this was discontinued after 5 minutes because her blood pressure became uncontrolled. The TPA was not initiated again because the patient was outside the TPA window. Fever continues to have low grade fevers. ID Physician following. I have discussed case with her multiple times. Patient was recently on Cefepime and Vancomycin, now discontinued few days ago by ID Physician , to monitor off Antibiotics. chest x-ray, blood cultures were unremarkable, catheter site growing multiple organisms sp R thoracentesis on 11/14, 240cc of serous fluid removed, cx of fluid was negative -Send stool for C. difficile -Severe Sepsis with septic shock, recurrent. Patient with multiple episodes of sepsis. Initial episode due to presumed aspiration pneumonia and septic episode on 09/23 from candidemia then a third episode from peritonitis from gastric perforation from dislodged PEG , there was an abscess in the abdomen present at that time that was draining pus. +/-UTI. The latest episode was related to surgical site infection. Antibiotics discontinued few days ago. ID Physician to follow. Surgical wound infection/gram-negative sepsis/candidemia/peritonitis PEG has been removed She will need to be on tube feeds through NG tube for a month, and then either a gastrostomy or jejunostomy tube replaced after her GI wounds have healed and infection is cleared -continue wound care to ostomy sites JUANITA, now ESRD Likely due to vasomotor nephropathy and ATN given sepsis Nephrology input appreciated, continue hemodialysis as per Nephrology Creatinine 2.2 today Acute CVA with infarct. sp TPA Continue neuro checks. Neurology input appreciated, CT shows continued evolution of left MCA infarct with slight mass effect and edema, and there is no hemorrhage - PRINCE showed hyperdynamic with ef of 75%, neither clot nor septal defect seen - MRA Brain shows near complete occlusion of M2 and M3 of the left MCA - Repeat CT scan done on 09/11, shows stable findings - carotid doppler negative - Echo shows preserved systolic function but does show some left ventricular diastolic dysfunction - continue asa and statin for secondary ppx Paroxysmal atrial fibrillation. On Metoprolol Persistent vegetative state This patient's needs placement at either hospice or SNF -She was denied for LTACH Acute hypoxic respiratory failure requiring MV >96hrs Status post tracheostomy, , has been tolerating T piece Nosocomial acquired aspiration pneumonia/sepsis/UTI She had completed a course of antibiotics. Now on Cefepime and Vanco for fever Asthma/COPD exacerbation Now has trach Acute Toxic Metabolic encephalopathy. Multitifactorial, mostly secondary to evolution of CVA Hypertensive Emergency Now on Metoprolol, Cozaar,Hydralazine, Clonidine patch. Bilateral pleural effusion, s/p right thoracentesis today Paroxysmal atrial fibrillation with rapid ventricular rate, failed cardioversion Continue current medications, Not a candidate for anticoagulation secondary to anemia, thrombocytopenia, and massive CVA Hypokalemia/Hypomagnesemia/hypophosphatemia. Replete electrolytes as needed. Diabetes type 2. Continue sliding-scale regular insulin and Accu-Cheks. Hyperlipidemia. Continue statin Nutrition continue tube feeds Anemia requiring multiple transfusions/acute blood loss Has received total 13 units of PRBC this admission. Will continue to transfuse to keep Hemoglobin above 7 Hemoglobin 8.9, most recent Her POA is her Brother, Jam [phone] Disposition. Very poor prognosis. Plan is for SNF placement. She was denied by LTAC Will need to have family meeting to discuss goals of care, the patient is not recovering and will most likely benefit from DNR and Hospice placement. Plan to set up a family meeting for an early next week. At this time she is planned for SNF placements, but lack of a PEG tube is barring sniff placement, they are not able to accept the patient with a nasogastric tube. History Interval history: She opens her eyes, but does not obey commands. Has tracheostomy in place , tolerating T piece, having very foul smelling watery stools Hospitalist Physical - Physical exam Narrative exam: General: Opens eyes, no distress, appears chronically ill HEENT: MMM, EOMI cardiac: S1-S2 heard lungs: ventilated breath sounds abdomen: soft, nontender, nondistended bowel sounds positive multiple ostomy bags noted, drainage is reduced extremities: no edema clubbing or cyanosis Skin: no rash or lesion Neuro: Status post tracheostomy, opens eyes, does not obey commands, right- sided weakness (i.e Right side less responsive to painful stimuli) - Constitutional Vitals: Temp Pulse Resp BP Pulse Ox 99.2 F 98 H 22 200/98 100 11/20/16 05:00 11/20/16 09:10 11/20/16 05:00 11/20/16 09:10 11/20/16 05:00 General appearance: Present: no acute distress Results - Labs CBC & Chem 7: 11/20/16 05:00 11/20/16 05:00 Labs: Laboratory Last Values WBC 13.1 K/mm3 (4.5-11.0) H 11/20/16 05:00 RBC 2.74 M/mm3 (3.65-5.03) L 11/20/16 05:00 Hgb 7.7 gm/dl (10.1-14.3) L 11/20/16 05:00 Hct 23.6 % (30.3-42.9) L 11/20/16 05:00 MCV 86 fl (79-97) 11/20/16 05:00 MCH 28 pg (28-32) 11/20/16 05:00 MCHC 33 % (30-34) 11/20/16 05:00 RDW 16.9 % (13.2-15.2) H 11/20/16 05:00 Plt Count 338 K/mm3 (140-440) 11/20/16 05:00 Lymph % (Auto) 27.4 % (13.4-35.0) 11/20/16 05:00 [place] % (Auto) 10.8 % (0.0-7.3) H 11/20/16 05:00 Eos % (Auto) 1.2 % (0.0-4.3) 11/20/16 05:00 Baso % (Auto) 0.5 % (0.0-1.8) 11/20/16 05:00 Lymph # 3.6 K/mm3 (1.2-5.4) 11/20/16 05:00 [place] # 1.4 K/mm3 (0.0-0.8) H 11/20/16 05:00 Eos # 0.2 K/mm3 (0.0-0.4) 11/20/16 05:00 Baso # 0.1 K/mm3 (0.0-0.1) 11/20/16 05:00 Add Manual Diff Complete 10/27/16 06:30 Total Counted 100 10/27/16 06:30 Seg Neutrophils % 60.1 % (40.0-70.0) 11/20/16 05:00 Seg Neuts % (Manual) 78.0 % (40.0-70.0) H 10/27/16 06:30 Band Neutrophils % 0 % 10/27/16 06:30 Lymphocytes % (Manual) 14.0 % (13.4-35.0) 10/27/16 06:30 Reactive Lymphs % (Man) 0 % 10/27/16 06:30 Monocytes % (Manual) 7.0 % (0.0-7.3) 10/27/16 06:30 Eosinophils % (Manual) 0 % (0.0-4.3) 10/27/16 06:30 Basophils % (Manual) 1.0 % (0.0-1.8) 10/27/16 06:30 Metamyelocytes % 0 % 10/27/16 06:30 Myelocytes % 0 % 10/27/16 06:30 Promyelocytes % 0 % 10/27/16 06:30 Blast Cells % 0 % 10/27/16 06:30 Nucleated RBC % 2.0 % (0.0-0.9) H 10/27/16 06:30 Seg Neutrophils # 7.9 K/mm3 (1.8-7.7) H 11/20/16 05:00 Seg Neutrophils # Man 10.8 K/mm3 (1.8-7.7) H 10/27/16 06:30 Band Neutrophils # 0.0 K/mm3 10/27/16 06:30 Lymphocytes # (Manual) 1.9 K/mm3 (1.2-5.4) 10/27/16 06:30 Abs React Lymphs (Man) 0.0 K/mm3 10/27/16 06:30 Monocytes # (Manual) 1.0 K/mm3 (0.0-0.8) H 10/27/16 06:30 Eosinophils # (Manual) 0.0 K/mm3 (0.0-0.4) 10/27/16 06:30 Basophils # (Manual) 0.1 K/mm3 (0.0-0.1) 10/27/16 06:30 Metamyelocytes # 0.0 K/mm3 10/27/16 06:30 Myelocytes # 0.0 K/mm3 10/27/16 06:30 Promyelocytes # 0.0 K/mm3 10/27/16 06:30 Blast Cells # 0.0 K/mm3 10/27/16 06:30 Pathologist Review 09/13/16 04:00 WBC Morphology Not Reportable 10/27/16 06:30 Hypersegmented Neuts Not Reportable 10/27/16 06:30 Hyposegmented Neuts Not Reportable 10/27/16 06:30 Hypogranular Neuts Not Reportable 10/27/16 06:30 Smudge Cells Not Reportable 10/27/16 06:30 Toxic Granulation Not Reportable 10/27/16 06:30 Toxic Vacuolation Not Reportable 10/27/16 06:30 Dohle Bodies Not Reportable 10/27/16 06:30 Pelger-Huet Anomaly Not Reportable 10/27/16 06:30 Jasmina Rods Not Reportable 10/27/16 06:30 Platelet Estimate Cons 10/27/16 06:30 Clumped Platelets Not Reportable 10/27/16 06:30 Plt Clumps, EDTA Not Reportable 10/27/16 06:30 Large Platelets Few 10/27/16 06:30 Giant Platelets Not Reportable 10/27/16 06:30 Platelet Satelliting Not Reportable 10/27/16 06:30 Plt Morphology Comment Not Reportable 10/27/16 06:30 RBC Morphology Not Reportable 10/27/16 06:30 Dimorphic RBCs Not Reportable 10/27/16 06:30 Polychromasia Not Reportable 10/27/16 06:30 Hypochromasia Not Reportable 10/27/16 06:30 Poikilocytosis Not Reportable 10/27/16 06:30 Anisocytosis 1+ 10/27/16 06:30 Microcytosis Not Reportable 10/27/16 06:30 Macrocytosis Not Reportable 10/27/16 06:30 Spherocytes Not Reportable 10/27/16 06:30 Pappenheimer Bodies Not Reportable 10/27/16 06:30 Sickle Cells Not Reportable 10/27/16 06:30 Target Cells Not Reportable 10/27/16 06:30 Tear Drop Cells Not Reportable 10/27/16 06:30 Ovalocytes Not Reportable 10/27/16 06:30 Stomatocytes Few 10/06/16 03:50 Helmet Cells Not Reportable 10/27/16 06:30 [place] Bodies Not Reportable 10/27/16 06:30 [place] Rings Not Reportable 10/27/16 06:30 [place] Cells Not Reportable 10/27/16 06:30 Bite Cells Not Reportable 10/27/16 06:30 Crenated Cell Not Reportable 10/27/16 06:30 Elliptocytes Not Reportable 10/27/16 06:30 Acanthocytes (Spur) Not Reportable 10/27/16 06:30 Rouleaux Not Reportable 10/27/16 06:30 Hemoglobin C Crystals Not Reportable 10/27/16 06:30 Schistocytes Not Reportable 10/27/16 06:30 Malaria parasites Not Reportable 10/27/16 06:30 ESR > 140.0 mm/Hr (0-20) 09/08/16 11:48 Jun Bodies Not Reportable 10/27/16 06:30 Hem Pathologist Commnt No 10/27/16 06:30 PT 16.8 Sec. (12.2-14.9) H 11/17/16 03:20 INR 1.37 (0.87-1.13) H 11/17/16 03:20 APTT 33.0 Sec. (24.2-36.6) 10/09/16 03:45 Thrombin Time 16.8 Sec. (15.1-19.6) 09/03/16 00:10 Fibrinogen 750 mg/dl (211-480) H 09/08/16 11:48 Lupus Anticoagulant see below 09/12/16 09:59 LA PTT Baseline See scanned report 09/12/16 09:59 dRVVT Confirm Interp Positive (Negative) H 09/12/16 09:59 dRVVT Screen 50:50 See scanned report 09/12/16 09:59 dRVVT Mix Interpret See scanned report 09/12/16 09:59 Protein C Antigen 122 % (70-140) 09/08/16 15:35 Free Protein S 97 % normal (50-147) 09/08/16 15:35 Total Protein S 109 % (70-140) 09/08/16 15:35 Antithrombin III Ag 100 % (80-120) 09/08/16 15:35 Heparin Anti-Xa, Unfract Negative (Negative) 09/29/16 13:35 Factor V Activity 182 % (65-150) H 09/08/16 15:35 POC ABG pH 7.467 (7.35-7.45) H 11/17/16 21:22 POC ABG pCO2 38.3 (35-45) 11/17/16 21:22 POC ABG pO2 73 (80-105) L 11/17/16 21:22 POC ABG HCO3 27.7 11/17/16 21:22 POC ABG Total CO2 29 11/17/16 21:22 POC ABG O2 Sat 95 11/17/16 21:22 POC ABG Base Excess 4 11/17/16 21:22 FiO2 28 % 11/17/16 21:22 Sodium 138 mmol/L (137-145) 11/20/16 05:00 Potassium 4.1 mmol/L (3.6-5.0) 11/20/16 05:00 Chloride 100.9 mmol/L (98-107) 11/20/16 05:00 Carbon Dioxide 27 mmol/L (22-30) 11/20/16 05:00 Anion Gap 14 mmol/L 11/20/16 05:00 BUN 31 mg/dL (7-17) H 11/20/16 05:00 Creatinine 1.8 mg/dL (0.7-1.2) H 11/20/16 05:00 Estimated GFR 37 ml/min 11/20/16 05:00 BUN/Creatinine Ratio 17.22 % 11/20/16 05:00 Glucose 129 mg/dL (65-100) H 11/20/16 05:00 POC Glucose 133 (70-105) H 11/20/16 05:51 Osmolality 351 Mosm/kg 09/16/16 11:47 Lactic Acid 4.50 mmol/L (0.7-2.0) H* 09/28/16 07:25 Calcium 8.5 mg/dL (8.4-10.2) 11/20/16 05:00 Phosphorus 4.40 mg/dL (2.5-4.5) 11/07/16 06:30 Magnesium 2.20 mg/dL (1.7-2.3) 11/07/16 06:30 Total Bilirubin 0.20 mg/dL (0.1-1.2) 11/06/16 06:25 Direct Bilirubin 0.3 mg/dL (0-0.2) H 10/10/16 05:00 Indirect Bilirubin 0.1 mg/dL 10/10/16 05:00 AST 103 units/L (5-40) H 11/06/16 06:25 ALT 77 units/L (7-56) H 11/06/16 06:25 Alkaline Phosphatase 285 units/L (35-129) H 11/06/16 06:25 Ammonia 27.0 umol/L (25-60) 09/07/16 08:37 Lactate Dehydrogenase 196 units/L (91-180) H 11/11/16 06:59 Total Creatine Kinase 121 units/L (30-135) 09/29/16 20:12 CK-MB (CK-2) < 1.0 ng/mL (0.0-4.0) 09/29/16 20:12 CK-MB (CK-2) Rel Index 0.8 (0-4) 09/29/16 20:12 Troponin T 0.204 ng/mL (0.00-0.029) H* 09/29/16 20:12 C-Reactive Protein 11.40 mg/dL (0.00-1.30) H 11/05/16 13:25 Total Protein 6.1 g/dL (6.3-8.2) L 11/11/16 06:59 Albumin 1.8 g/dL (3.9-5) L 11/06/16 06:25 Albumin/Globulin Ratio 0.4 % 11/06/16 06:25 Prealbumin 0.180 g/L (0.200-0.400) L 11/06/16 06:25 Triglycerides 137 mg/dL (2-149) 09/29/16 20:12 Cholesterol 31 mg/dL (50-199) L 09/29/16 20:12 LDL Cholesterol Direct 4 mg/dL (50-130) L 09/29/16 20:12 HDL Cholesterol 3 mg/dL (40-59) L 09/29/16 20:12 Cholesterol/HDL Ratio 10.33 % 09/29/16 20:12 Angiotensin Convert Enz See scanned report 09/08/16 11:48 Renin 0.99 ng/mL/h (0.25-5.82) 10/07/16 10:56 Aldosterone <1 ng/dL () 10/07/16 10:56 Aldosterone/Renin Dir see below 10/07/16 10:56 Serotonin Release Assay See scanned report 09/29/16 13:35 TSH 1.010 mlU/mL (0.270-4.200) 09/07/16 08:37 HCG, Qual Negative (Negative) 09/03/16 00:10 Urine Color Yellow (Yellow) 11/05/16 13:09 Urine Turbidity Clear (Clear) 11/05/16 13:09 Urine pH 9.0 (5.0-7.0) H 11/05/16 13:09 Ur Specific [place] 1.011 (1.003-1.030) 11/05/16 13:09 Urine Protein 100 mg/dl mg/dL (Negative) 11/05/16 13:09 Urine Glucose (UA) Neg mg/dL (Negative) 11/05/16 13:09 Urine Ketones Neg mg/dL (Negative) 11/05/16 13:09 Urine Blood Neg (Negative) 11/05/16 13:09 Urine Nitrite Neg (Negative) 11/05/16 13:09 Urine Bilirubin Neg (Negative) 11/05/16 13:09 Urine Urobilinogen < 2.0 mg/dL (<2.0) 11/05/16 13:09 Ur Leukocyte Esterase Neg (Negative) 11/05/16 13:09 Urine WBC (Auto) 4.0 /HPF (0.0-6.0) 11/05/16 13:09 Urine RBC (Auto) 1.0 /HPF (0.0-6.0) 11/05/16 13:09 U Epithel Cells (Auto) 1.0 /HPF (0-13.0) 10/07/16 18:30 Urine Bacteria (Auto) 4+ /HPF (Negative) 11/05/16 13:09 Urine WBC Clumps 2+ /HPF 09/07/16 02:47 Hyaline Casts 4 /LPF 09/07/16 02:47 Urine Mucus Few /HPF 10/07/16 18:30 Urine Yeast (Budding) 3+ /HPF 10/07/16 18:30 Urine Eosinophils None seen (None Seen) 09/07/16 16:00 Urine Total Volume 950 11/12/16 10:18 Urine Creatinine 19.7 mg/dL (0.1-20.0) 11/12/16 10:18 Height (in) 65.0 inches 11/12/16 10:18 Weight (lb) 181.0 lbs 11/12/16 10:18 Creatinine Clearance 5 11/12/16 10:18 Urine Sodium 36 mEq/L 09/16/16 19:19 Urine Total Protein 16 mg/dL (5-11.8) H 09/16/16 19:19 Fluid Total Protein < 3.0 (15.0-45.0) L 11/10/16 14:20 Fluid LDH 123 11/10/16 14:20 Vancomycin Trough 2.3 ug/mL (5.0-20.0) L 09/21/16 13:00 Random Vancomycin 24.7 ug/mL (0-40.0) 11/12/16 04:00 Urine Opiates Screen Presumptive negative 09/03/16 15:11 Urine Methadone Screen Presumptive positive 09/03/16 15:11 Ur Barbiturates Screen Presumptive positive 09/03/16 15:11 Ur Phencyclidine Scrn Presumptive negative 09/03/16 15:11 Ur Amphetamines Screen Presumptive negative 09/03/16 15:11 U Benzodiazepines Scrn Presumptive negative 09/03/16 15:11 Urine Cocaine Screen Presumptive negative 09/03/16 15:11 U Marijuana (THC) Screen Presumptive positive 09/03/16 15:11 Drugs of Abuse Note Disclamer 09/03/16 15:11 Rheumatoid Factor 24 IU/ml (0-13) H 09/08/16 11:48 SAHIL Screen Negative (Negative) 09/07/16 09:20 Proteinase 3 (PR3) Ab <1.0 AI (<1.0) 09/07/16 09:20 Myeloperoxidase Ab <1.0 AI (<1.0) 09/07/16 09:20 Sjogren's Antibody <1.0 AI (<1.0) 09/08/16 15:35 Scl-70 Scleroderma Ab <1.0 AI (<1.0) 09/08/16 15:35 Centromere B Antibody <1.0 AI (<1.0) 09/08/16 12:02 Heparin-induced Plt Ab Negative (Negative) 09/29/16 13:35 UF Heparin High Dose 11 % Release 09/29/16 13:35 SUDHIR UFH Low Dose 0.1 6 % Release 09/29/16 13:35 SUDHIR UFH Low Dose 0.5 8 % Release 09/29/16 13:35 Cardiolipid IgG Ab <14 GPL (<=14) 09/12/16 09:59 Cardiolipid IgA Ab <11 APL (<=11) 09/12/16 09:59 Cardiolipid IgM Ab <12 MPL (<=12) 09/12/16 09:59 Complement C3 148 mg/dL (90-180) 09/07/16 09:20 Complement C4 58 mg/dL (16-47) H 09/07/16 09:20 RPR Nonreactive (Nonreactive) 09/08/16 11:48 Hepatitis A IgM Ab Non-reactive (NonReactive) 09/24/16 14:40 Hep Bs Antigen Non-reactive (Negative) 09/24/16 14:40 Hep B Core IgM Ab Non-reactive (NonReactive) 09/24/16 14:40 Hepatitis C Antibody Non-reactive (NonReactive) 09/24/16 14:40 HIV 1&2 Antibody Rapid Non react (Non React) 09/08/16 11:48 HIV P24 Antigen Non react (Non React) 09/08/16 11:48 Miscellaneous Test Flexitest 1 H 11/05/16 13:25 Blood Type A POSITIVE 11/07/16 09:37 Antibody Screen Negative 11/07/16 09:37 DELORIS Antibody Screen Negative 09/25/16 10:30 Crossmatch See Detail 11/07/16 09:37
--- NOTE | 2016-11-20 12:44 | Progress Note ---
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 * Acute hypoxic respiratory failure * Left renal artery stenosis * Metabolic acidosis - improved * Anemia * Hyponatremia - multifactorial Plan: * hemodialysis MWF and prn * monitor for renal recovery * Rate control per cardiology * 4 k bath with dialysis * Dose medications for renal function * Avoid potential nephrotoxins Subjective Date of service: 11/20/16 Principal diagnosis: Acute resp failure on MVS; S/P Acute CVA; Acute Encephalopathy; JUANITA Interval history: no new event Objective - Exam Narrative Exam: Gen. appearance: Patient lying in bed, no apparent distress, 4. restraints HEENT: Normocephalic, atraumatic, pupils equally round and reactive to light, extraocular movement intact, and no sclericterus,. No JVD or thyromegaly or nodule,neck supple, no carotid bruit ,mucous membranes moist, unable to examine oral cavity Heart: S1, S2, regular rate and rhythm Lungs: Clear to auscultation bilaterally, breathing comfortable Abdomen: Positive bowel sounds, nontender, nondistended, no organomegaly Extremity: No edema, cyanosis, clubbing Skin: No rash, nodules, warm, dry Neuro: Difficult to assess, facial droop, moves all 4 extremities - Vital Signs Vital signs: Vital Signs - 12hr 11/20/16 11/20/16 11/20/16 00:43 05:00 09:10 Temperature 100.4 F H 99.2 F Pulse Rate 105 H 95 H 95 H Respiratory 20 22 Rate Blood Pressure 200/95 Blood Pressure 180/106 213/105 [Right] O2 Sat by Pulse 94 100 Oximetry 11/20/16 12:40 Temperature Pulse Rate 123 H Respiratory Rate Blood Pressure Blood Pressure 204/115 [Right] O2 Sat by Pulse Oximetry - Lab 11/20/16 05:00 11/20/16 05:00 Most recent lab results Calcium 8.5 mg/dL (8.4-10.2) 11/20/16 05:00 Phosphorus 4.40 mg/dL (2.5-4.5) 11/07/16 06:30 Magnesium 2.20 mg/dL (1.7-2.3) 11/07/16 06:30 Urine Creatinine 19.7 mg/dL (0.1-20.0) 11/12/16 10:18 Urine Sodium 36 mEq/L 09/16/16 19:19 Urine Total Protein 16 mg/dL (5-11.8) H 09/16/16 19:19
[2016-11-20] MEDS: TYLENOL FEEDTUBE PRN (13:06)
[2016-11-20] MEDS: TRANSDERM-SCOP TD SCH (14:36)
[2016-11-21] MEDS: HumuLIN R SUB-Q SCH ×3 (01:41→17:12)
[2016-11-21] MEDS: LOPRESSOR FEEDTUBE SCH ×3 (04:29→23:51)
[2016-11-21] MEDS: CATAPRES PO SCH ×3 (07:13→23:50)
[2016-11-21 08:07] LABS: Hematocrit 25.4 % (30.3-42.9); Hemoglobin 8.2 gm/dl (10.1-14.3); Mean Corpuscular HGB Conc 32 % (30-34); Mean Corpuscular Hemoglobin 28 pg (28-32); Mean Corpuscular Volume 87 fl (79-97); Platelet Count 362 K/mm3 (140-440); Red Blood Count 2.91 M/mm3 (3.65-5.03); Red Cell Distribution Width 17.1 % (13.2-15.2)
[2016-11-21 08:22] LABS: Calcium 8.9 mg/dL (8.4-10.2)
[2016-11-21] MEDS ORDERED: VASELINE LIP THERAPY TP PRN (09:06)
--- NOTE | 2016-11-21 09:34 | XRay Report ---
AP CHEST 11/21/16 08:45 CLINICAL: Followup pleural effusions. COMPARISON:11/18/16 FINDINGS: A tracheostomy tube is in satisfactory position. A feeding tube tip is below the diaphragm and not imaged. Significant improvement with near complete clearing of the lung velazco. Bilateral pleural effusions have resolved. Left PICC line tip in the distal SVC and left Vas-Cath tip in the right atrium. The heart remains enlarged. Mild central vascular congestion. No airspace disease.No pneumothorax. IMPRESSION: Significant improvement with resolution of bilateral pleural effusions. Cardiomegaly and mild central vascular congestion. No pulmonary edema.
[2016-11-21] MEDS ORDERED: NACL 0.9% 1000 ML 1,000 ML IV ONE (09:44)
[2016-11-21] MEDS: APRESOLINE PO SCH ×3 (09:44→23:51)
--- NOTE | 2016-11-21 09:56 | Progress Note ---
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 * Acute hypoxic respiratory failure * Left renal artery stenosis * Metabolic acidosis - improved * Anemia * Hyponatremia - multifactorial * tachycardia Plan: * hemodialysis MWF and prn, no plans for hd today * monitor for renal recovery * stop dopamine * Levophed DS--titrate to map 65 * Rate control per cardiology * 3 k bath with dialysis * Dose medications for renal function * Avoid potential nephrotoxins Subjective Date of service: 11/21/16 Principal diagnosis: Acute resp failure on MVS; S/P Acute CVA; Acute Encephalopathy; JUANITA Interval history: new events from last pm noted Objective - Exam Narrative Exam: Gen. appearance: Patient lying in bed, no apparent distress, 4. restraints HEENT: Normocephalic, atraumatic, pupils equally round and reactive to light, extraocular movement intact, and no sclericterus,. No JVD or thyromegaly or nodule,neck supple, no carotid bruit ,mucous membranes moist, unable to examine oral cavity Heart: S1, S2, regular rate and rhythm Lungs: Clear to auscultation bilaterally, breathing comfortable Abdomen: Positive bowel sounds, nontender, nondistended, no organomegaly Extremity: No edema, cyanosis, clubbing Skin: No rash, nodules, warm, dry Neuro: Difficult to assess, facial droop, moves all 4 extremities - Vital Signs Vital signs: Vital Signs - 12hr 11/20/16 11/20/16 11/21/16 22:00 23:36 00:59 Temperature 97.8 F Pulse Rate 98 H 100 H Respiratory 24 Rate Blood Pressure Blood Pressure 144/66 [Right] O2 Sat by Pulse 99 Oximetry O2 Sat by Pulse 99 Oximetry [ Assessment] 11/21/16 11/21/16 11/21/16 01:05 04:29 04:50 Temperature 98.8 F 98.4 F Pulse Rate 101 H 96 H 92 H Respiratory 24 22 Rate Blood Pressure 185/95 Blood Pressure 185/95 172/92 [Right] O2 Sat by Pulse 96 96 Oximetry O2 Sat by Pulse Oximetry [ Assessment] 11/21/16 11/21/16 11/21/16 08:17 09:00 09:15 Temperature Pulse Rate 125 H Respiratory Rate Blood Pressure Blood Pressure [Right] O2 Sat by Pulse 98 Oximetry O2 Sat by Pulse 98 Oximetry [ Assessment] 11/21/16 11/21/16 09:16 09:47 Temperature 100 F H Pulse Rate 100 H Respiratory Rate Blood Pressure Blood Pressure [Right] O2 Sat by Pulse 100 Oximetry O2 Sat by Pulse Oximetry [ Assessment] - Lab 11/21/16 07:45 11/21/16 07:45 Most recent lab results Calcium 8.9 mg/dL (8.4-10.2) 11/21/16 07:45 Phosphorus 4.40 mg/dL (2.5-4.5) 11/07/16 06:30 Magnesium 2.20 mg/dL (1.7-2.3) 11/07/16 06:30 Urine Creatinine 19.7 mg/dL (0.1-20.0) 11/12/16 10:18 Urine Sodium 36 mEq/L 09/16/16 19:19 Urine Total Protein 16 mg/dL (5-11.8) H 09/16/16 19:19
[2016-11-21] MEDS ORDERED: NACL 0.9% 500 ML IV SCH (10:00)
[2016-11-21] MEDS ORDERED: INTROPIN DRIP 800 MG/D5W 250 ML 800 MG/250 ML BAG IV SCH (10:00)
--- NOTE | 2016-11-21 10:11 | Progress Note ---
Assessment and Plan Assessment and Plan Assessment and plan: 46-year-old woman with a history of hypertension, diabetes, asthma, hyperlipidemia, chronic kidney disease and anxiety , who was brought in by family because, she couldn't get her words out, her face was also twisted, she was admitted for acute CVA and accelerated hypertension, she had a hx of poor adherence with her medications, and uncontrolled htn. Patient's SBP on admission was noted be greater than 260. TPA was started but this was discontinued after 5 minutes because her blood pressure became uncontrolled. The TPA was not initiated again because the patient was outside the TPA window. Fever continues to have low grade fevers. ID Physician following. I have discussed case with her multiple times. Patient was recently on Cefepime and Vancomycin, now discontinued few days ago by ID Physician , to monitor off Antibiotics. chest x-ray, blood cultures were unremarkable, catheter site growing multiple organisms sp R thoracentesis on 11/14, 240cc of serous fluid removed, cx of fluid was negative -Send stool for C. difficile -Severe Sepsis with septic shock, recurrent. Patient with multiple episodes of sepsis. Initial episode due to presumed aspiration pneumonia and septic episode on 09/23 from candidemia then a third episode from peritonitis from gastric perforation from dislodged PEG , there was an abscess in the abdomen present at that time that was draining pus. +/-UTI. The latest episode was related to surgical site infection. Antibiotics discontinued few days ago. ID Physician to follow. Surgical wound infection/gram-negative sepsis/candidemia/peritonitis PEG has been removed She will need to be on tube feeds through NG tube for a month, and then either a gastrostomy or jejunostomy tube replaced after her GI wounds have healed and infection is cleared -continue wound care to ostomy sites JUANITA, now ESRD Likely due to vasomotor nephropathy and ATN given sepsis Nephrology input appreciated, continue hemodialysis as per Nephrology Creatinine 2.2 today Acute CVA with infarct. sp TPA Continue neuro checks. Neurology input appreciated, CT shows continued evolution of left MCA infarct with slight mass effect and edema, and there is no hemorrhage - PRINCE showed hyperdynamic with ef of 75%, neither clot nor septal defect seen - MRA Brain shows near complete occlusion of M2 and M3 of the left MCA - Repeat CT scan done on 09/11, shows stable findings - carotid doppler negative - Echo shows preserved systolic function but does show some left ventricular diastolic dysfunction - continue asa and statin for secondary ppx Paroxysmal atrial fibrillation. On Metoprolol Persistent vegetative state This patient's needs placement at either hospice or SNF -She was denied for LTACH Acute hypoxic respiratory failure requiring MV >96hrs Status post tracheostomy, , has been tolerating T piece Nosocomial acquired aspiration pneumonia/sepsis/UTI She had completed a course of antibiotics. Now on Cefepime and Vanco for fever Asthma/COPD exacerbation Now has trach Acute Toxic Metabolic encephalopathy. Multitifactorial, mostly secondary to evolution of CVA Hypertensive Emergency Now on Metoprolol, Cozaar,Hydralazine, Clonidine patch. Bilateral pleural effusion, s/p right thoracentesis today Paroxysmal atrial fibrillation with rapid ventricular rate, failed cardioversion Continue current medications, Not a candidate for anticoagulation secondary to anemia, thrombocytopenia, and massive CVA Hypokalemia/Hypomagnesemia/hypophosphatemia. Replete electrolytes as needed. Diabetes type 2. Continue sliding-scale regular insulin and Accu-Cheks. Hyperlipidemia. Continue statin Nutrition continue tube feeds Anemia requiring multiple transfusions/acute blood loss Has received total 13 units of PRBC this admission. Will continue to transfuse to keep Hemoglobin above 7 Hemoglobin 8.9, most recent Her POA is her Brother, Jam [phone] Disposition. Very poor prognosis. Plan is for SNF placement. She was denied by LTAC - Patient Problems (1) Acute respiratory failure with hypoxia Current Visit: Yes Status: Acute (2) Acute blood loss anemia Current Visit: Yes Status: Resolved (3) Acute CVA (cerebrovascular accident) Current Visit: Yes Status: Acute (4) Chronic renal insufficiency Current Visit: Yes Status: Acute Qualifiers: Chronic kidney disease stage: C (5) Uncontrolled hypertension Current Visit: Yes Status: Acute (6) Leukocytosis (leucocytosis) Current Visit: Yes Status: Acute Qualifiers: Leukocytosis type: leukemoid reaction Qualified Code(s): D72.823 - Leukemoid reaction (7) Dislodged gastrostomy tube Current Visit: Yes Status: Acute (8) Fungemia Current Visit: Yes Status: Acute Subjective Date of service: 11/21/16 Principal diagnosis: Acute resp failure on MVS; S/P Acute CVA; Acute Encephalopathy; JUANITA Interval history: Seen and examined. Vitals, labs, medications, chart reviewed. On mechanical ventilatory support s/p PEA arrest this morning. See code blue documentation for details. Back on full mechanical ventilatory support-No dyscynchrony noted Requiring vasopressor support to maintain MAP>65 Hospitalist service is to have a family meeting today to give updates and discuss goals of care. Discussed in interdisciplinary rounds Objective - Exam Narrative Exam: General: Opens eyes, no distress, appears chronically ill s/p trach to vent AC-VC20/500/PEEP5 40% HEENT: MMM, EOMI cardiac: S1-S2 heard lungs: ventilated breath sounds abdomen: soft, nontender, nondistended bowel sounds positive multiple ostomy bags noted, drainage is reduced extremities: no edema clubbing or cyanosis Skin: no rash or lesion..facial rash,acneform lesions Neuro: Status post tracheostomy, opens eyes, does not obey commands, right- sided weakness (i.e Right side less responsive to painful stimuli) Vital Signs - 12hr 11/20/16 11/21/16 11/21/16 23:36 00:59 01:05 Temperature 97.8 F 98.8 F Pulse Rate 100 H 101 H Respiratory 24 24 Rate Blood Pressure Blood Pressure 144/66 185/95 [Right] O2 Sat by Pulse 99 96 Oximetry O2 Sat by Pulse 99 Oximetry [ Assessment] 11/21/16 11/21/16 11/21/16 04:29 04:50 08:17 Temperature 98.4 F Pulse Rate 96 H 92 H Respiratory 22 Rate Blood Pressure 185/95 Blood Pressure 172/92 [Right] O2 Sat by Pulse 96 98 Oximetry O2 Sat by Pulse Oximetry [ Assessment] 11/21/16 11/21/16 11/21/16 09:00 09:15 09:16 Temperature Pulse Rate 125 H 100 H Respiratory Rate Blood Pressure Blood Pressure [Right] O2 Sat by Pulse 100 Oximetry O2 Sat by Pulse 98 Oximetry [ Assessment] 11/21/16 09:47 Temperature 100 F H Pulse Rate Respiratory Rate Blood Pressure Blood Pressure [Right] O2 Sat by Pulse Oximetry O2 Sat by Pulse Oximetry [ Assessment] Constitutional: no acute distress, other (eyes open; tracking movements) Eyes: non-icteric, other (tracheostomy tube in midline of neck) ENT: oropharynx moist Neck: supple, no lymphadenopathy Effort: mildly labored Ascultation: Bilateral: clear, diminished breath sounds (bases), rales, rhonchi (and referred upper airway sounds) Cardiovascular: regular rate and rhythm Gastrointestinal: hypoactive bowel sounds, soft, non-tender, non-distended, other (RLQ stomas with colostomy bags) Integumentary: other (healing back burn-like injury) Extremities: no cyanosis, no edema, pulses normal, no ischemia or petechiae Neurologic: pupils equal and round, other (encephalopathic) Psychiatric: other (unable to assess) CBC and BMP: 11/21/16 07:45 11/21/16 07:45 ABG, PT/INR, D-dimer: ABG POC ABG pH 7.467 (7.35-7.45) H 11/17/16 21:22 POC ABG pCO2 38.3 (35-45) 11/17/16 21:22 POC ABG pO2 73 (80-105) L 11/17/16 21:22 POC ABG HCO3 27.7 11/17/16 21:22 POC ABG Total CO2 29 11/17/16 21:22 POC ABG O2 Sat 95 11/17/16 21:22 PT/INR, D-dimer PT 16.8 Sec. (12.2-14.9) H 11/17/16 03:20 INR 1.37 (0.87-1.13) H 11/17/16 03:20 Abnormal lab findings: Abnormal Labs 09/03/16 09/03/16 09/03/16 12:12 15:07 16:20 WBC RBC Hgb Hct MCV MCH MCHC RDW Plt Count Lymph % (Auto) [place] % (Auto) Lymph # [place] # Baso # Seg Neutrophils % Seg Neuts % (Manual) Lymphocytes % (Manual) Monocytes % (Manual) Eosinophils % (Manual) Basophils % (Manual) Nucleated RBC % Seg Neutrophils # Seg Neutrophils # Man Lymphocytes # (Manual) Monocytes # (Manual) Eosinophils # (Manual) PT INR Fibrinogen dRVVT Confirm Interp Factor V Activity POC ABG pH 7.452 H POC ABG pCO2 POC ABG pO2 Sodium Potassium Chloride Carbon Dioxide BUN Creatinine Glucose POC Glucose 178 H Lactic Acid Calcium Phosphorus 2.20 L Magnesium 1.60 L Direct Bilirubin AST ALT Alkaline Phosphatase Lactate Dehydrogenase Troponin T C-Reactive Protein Total Protein Albumin Prealbumin Triglycerides Cholesterol LDL Cholesterol Direct HDL Cholesterol Urine pH Urine WBC (Auto) Urine Creatinine Urine Total Protein Fluid Total Protein Vancomycin Trough Rheumatoid Factor Complement C4 Miscellaneous Test Crossmatch 09/03/16 09/03/16 09/03/16 17:57 17:58 23:50 WBC RBC Hgb Hct MCV MCH MCHC RDW Plt Count Lymph % (Auto) [place] % (Auto) Lymph # [place] # Baso # Seg Neutrophils % Seg Neuts % (Manual) Lymphocytes % (Manual) Monocytes % (Manual) Eosinophils % (Manual) Basophils % (Manual) Nucleated RBC % Seg Neutrophils # Seg Neutrophils # Man Lymphocytes # (Manual) Monocytes # (Manual) Eosinophils # (Manual) PT INR Fibrinogen dRVVT Confirm Interp Factor V Activity POC ABG pH POC ABG pCO2 POC ABG pO2 Sodium Potassium Chloride Carbon Dioxide BUN Creatinine Glucose POC Glucose 162 H 145 H Lactic Acid Calcium Phosphorus 2.30 L Magnesium Direct Bilirubin AST ALT Alkaline Phosphatase Lactate Dehydrogenase Troponin T C-Reactive Protein Total Protein Albumin Prealbumin Triglycerides Cholesterol LDL Cholesterol Direct HDL Cholesterol Urine pH Urine WBC (Auto) Urine Creatinine Urine Total Protein Fluid Total Protein Vancomycin Trough Rheumatoid Factor Complement C4 Miscellaneous Test Crossmatch 09/04/16 09/04/16 09/04/16 03:31 03:31 05:42 WBC RBC Hgb 9.7 L D Hct MCV 72 L MCH 23 L MCHC RDW 17.5 H Plt Count Lymph % (Auto) 11.1 L [place] % (Auto) Lymph # [place] # Baso # Seg Neutrophils % 84.3 H Seg Neuts % (Manual) Lymphocytes % (Manual) Monocytes % (Manual) Eosinophils % (Manual) Basophils % (Manual) Nucleated RBC % Seg Neutrophils # 8.9 H Seg Neutrophils # Man Lymphocytes # (Manual) Monocytes # (Manual) Eosinophils # (Manual) PT INR Fibrinogen dRVVT Confirm Interp Factor V Activity POC ABG pH POC ABG pCO2 POC ABG pO2 Sodium 135 L Potassium 2.9 L* Chloride 97.2 L Carbon Dioxide 19 L BUN Creatinine 1.7 H Glucose 170 H POC Glucose 152 H Lactic Acid Calcium Phosphorus Magnesium Direct Bilirubin AST ALT Alkaline Phosphatase Lactate Dehydrogenase Troponin T C-Reactive Protein Total Protein Albumin Prealbumin Triglycerides 160 H Cholesterol LDL Cholesterol Direct HDL Cholesterol 31 L Urine pH Urine WBC (Auto) Urine Creatinine Urine Total Protein Fluid Total Protein Vancomycin Trough Rheumatoid Factor Complement C4 Miscellaneous Test Crossmatch 09/04/16 09/04/16 09/04/16 11:34 17:46 23:29 WBC RBC Hgb Hct MCV MCH MCHC RDW Plt Count Lymph % (Auto) [place] % (Auto) Lymph # [place] # Baso # Seg Neutrophils % Seg Neuts % (Manual) Lymphocytes % (Manual) Monocytes % (Manual) Eosinophils % (Manual) Basophils % (Manual) Nucleated RBC % Seg Neutrophils # Seg Neutrophils # Man Lymphocytes # (Manual) Monocytes # (Manual) Eosinophils # (Manual) PT INR Fibrinogen dRVVT Confirm Interp Factor V Activity POC ABG pH POC ABG pCO2 POC ABG pO2 Sodium Potassium Chloride Carbon Dioxide BUN Creatinine Glucose POC Glucose 165 H 210 H 139 H Lactic Acid Calcium Phosphorus Magnesium Direct Bilirubin AST ALT Alkaline Phosphatase Lactate Dehydrogenase Troponin T C-Reactive Protein Total Protein Albumin Prealbumin Triglycerides Cholesterol LDL Cholesterol Direct HDL Cholesterol Urine pH Urine WBC (Auto) Urine Creatinine Urine Total Protein Fluid Total Protein Vancomycin Trough Rheumatoid Factor Complement C4 Miscellaneous Test Crossmatch 09/05/16 09/05/16 09/05/16 04:05 04:05 05:38 WBC RBC Hgb Hct MCV 76 L D MCH 23 L MCHC RDW 17.8 H Plt Count Lymph % (Auto) [place] % (Auto) Lymph # [place] # Baso # Seg Neutrophils % Seg Neuts % (Manual) Lymphocytes % (Manual) Monocytes % (Manual) Eosinophils % (Manual) Basophils % (Manual) Nucleated RBC % Seg Neutrophils # Seg Neutrophils # Man Lymphocytes # (Manual) Monocytes # (Manual) Eosinophils # (Manual) PT INR Fibrinogen dRVVT Confirm Interp Factor V Activity POC ABG pH POC ABG pCO2 POC ABG pO2 Sodium 134 L Potassium Chloride Carbon Dioxide 18 L BUN Creatinine 1.8 H Glucose 192 H POC Glucose 175 H Lactic Acid Calcium Phosphorus Magnesium Direct Bilirubin AST ALT Alkaline Phosphatase Lactate Dehydrogenase Troponin T C-Reactive Protein Total Protein Albumin Prealbumin Triglycerides Cholesterol LDL Cholesterol Direct HDL Cholesterol Urine pH Urine WBC (Auto) Urine Creatinine Urine Total Protein Fluid Total Protein Vancomycin Trough Rheumatoid Factor Complement C4 Miscellaneous Test Crossmatch 09/05/16 09/05/16 09/05/16 11:38 17:48 23:22 WBC RBC Hgb Hct MCV MCH MCHC RDW Plt Count Lymph % (Auto) [place] % (Auto) Lymph # [place] # Baso # Seg Neutrophils % Seg Neuts % (Manual) Lymphocytes % (Manual) Monocytes % (Manual) Eosinophils % (Manual) Basophils % (Manual) Nucleated RBC % Seg Neutrophils # Seg Neutrophils # Man Lymphocytes # (Manual) Monocytes # (Manual) Eosinophils # (Manual) PT INR Fibrinogen dRVVT Confirm Interp Factor V Activity POC ABG pH POC ABG pCO2 POC ABG pO2 Sodium Potassium Chloride Carbon Dioxide BUN Creatinine Glucose POC Glucose 164 H 186 H 195 H Lactic Acid Calcium Phosphorus Magnesium Direct Bilirubin AST ALT Alkaline Phosphatase Lactate Dehydrogenase Troponin T C-Reactive Protein Total Protein Albumin Prealbumin Triglycerides Cholesterol LDL Cholesterol Direct HDL Cholesterol Urine pH Urine WBC (Auto) Urine Creatinine Urine Total Protein Fluid Total Protein Vancomycin Trough Rheumatoid Factor Complement C4 Miscellaneous Test Crossmatch 09/06/16 09/06/16 09/06/16 04:12 05:59 07:32 WBC RBC Hgb Hct MCV MCH MCHC RDW Plt Count Lymph % (Auto) [place] % (Auto) Lymph # [place] # Baso # Seg Neutrophils % Seg Neuts % (Manual) Lymphocytes % (Manual) Monocytes % (Manual) Eosinophils % (Manual) Basophils % (Manual) Nucleated RBC % Seg Neutrophils # Seg Neutrophils # Man Lymphocytes # (Manual) Monocytes # (Manual) Eosinophils # (Manual) PT INR Fibrinogen dRVVT Confirm Interp Factor V Activity POC ABG pH 7.514 H POC ABG pCO2 29.1 L POC ABG pO2 72 L Sodium 133 L Potassium 3.4 L Chloride 94.9 L Carbon Dioxide 19 L BUN 30 H Creatinine 2.1 H Glucose 139 H POC Glucose 146 H Lactic Acid Calcium Phosphorus Magnesium Direct Bilirubin AST ALT Alkaline Phosphatase Lactate Dehydrogenase Troponin T C-Reactive Protein Total Protein Albumin Prealbumin Triglycerides Cholesterol LDL Cholesterol Direct HDL Cholesterol Urine pH Urine WBC (Auto) Urine Creatinine Urine Total Protein Fluid Total Protein Vancomycin Trough Rheumatoid Factor Complement C4 Miscellaneous Test Crossmatch 09/06/16 09/06/16 09/06/16 11:57 17:58 19:02 WBC RBC Hgb Hct MCV MCH MCHC RDW Plt Count Lymph % (Auto) [place] % (Auto) Lymph # [place] # Baso # Seg Neutrophils % Seg Neuts % (Manual) Lymphocytes % (Manual) Monocytes % (Manual) Eosinophils % (Manual) Basophils % (Manual) Nucleated RBC % Seg Neutrophils # Seg Neutrophils # Man Lymphocytes # (Manual) Monocytes # (Manual) Eosinophils # (Manual) PT INR Fibrinogen dRVVT Confirm Interp Factor V Activity POC ABG pH 7.465 H POC ABG pCO2 32.0 L POC ABG pO2 Sodium Potassium Chloride Carbon Dioxide BUN Creatinine Glucose POC Glucose 165 H 160 H Lactic Acid Calcium Phosphorus Magnesium Direct Bilirubin AST ALT Alkaline Phosphatase Lactate Dehydrogenase Troponin T C-Reactive Protein Total Protein Albumin Prealbumin Triglycerides Cholesterol LDL Cholesterol Direct HDL Cholesterol Urine pH Urine WBC (Auto) Urine Creatinine Urine Total Protein Fluid Total Protein Vancomycin Trough Rheumatoid Factor Complement C4 Miscellaneous Test Crossmatch 09/06/16 09/07/16 09/07/16 23:45 02:47 02:47 WBC RBC Hgb Hct MCV MCH MCHC RDW Plt Count Lymph % (Auto) [place] % (Auto) Lymph # [place] # Baso # Seg Neutrophils % Seg Neuts % (Manual) Lymphocytes % (Manual) Monocytes % (Manual) Eosinophils % (Manual) Basophils % (Manual) Nucleated RBC % Seg Neutrophils # Seg Neutrophils # Man Lymphocytes # (Manual) Monocytes # (Manual) Eosinophils # (Manual) PT INR Fibrinogen dRVVT Confirm Interp Factor V Activity POC ABG pH POC ABG pCO2 POC ABG pO2 Sodium Potassium Chloride Carbon Dioxide BUN Creatinine Glucose POC Glucose 204 H Lactic Acid Calcium Phosphorus Magnesium Direct Bilirubin AST ALT Alkaline Phosphatase Lactate Dehydrogenase Troponin T C-Reactive Protein Total Protein Albumin Prealbumin Triglycerides Cholesterol LDL Cholesterol Direct HDL Cholesterol Urine pH Urine WBC (Auto) 68.0 H Urine Creatinine 106.1 H Urine Total Protein Fluid Total Protein Vancomycin Trough Rheumatoid Factor Complement C4 Miscellaneous Test Crossmatch 09/07/16 09/07/16 09/07/16 04:50 06:19 06:39 WBC RBC Hgb Hct MCV MCH MCHC RDW Plt Count Lymph % (Auto) [place] % (Auto) Lymph # [place] # Baso # Seg Neutrophils % Seg Neuts % (Manual) Lymphocytes % (Manual) Monocytes % (Manual) Eosinophils % (Manual) Basophils % (Manual) Nucleated RBC % Seg Neutrophils # Seg Neutrophils # Man Lymphocytes # (Manual) Monocytes # (Manual) Eosinophils # (Manual) PT INR Fibrinogen dRVVT Confirm Interp Factor V Activity POC ABG pH 7.457 H POC ABG pCO2 32.1 L POC ABG pO2 76 L Sodium 132 L Potassium Chloride 94.7 L Carbon Dioxide BUN 53 H Creatinine 2.9 H Glucose 151 H POC Glucose 149 H Lactic Acid Calcium Phosphorus Magnesium Direct Bilirubin AST ALT Alkaline Phosphatase Lactate Dehydrogenase Troponin T C-Reactive Protein Total Protein Albumin Prealbumin Triglycerides Cholesterol LDL Cholesterol Direct HDL Cholesterol Urine pH Urine WBC (Auto) Urine Creatinine Urine Total Protein Fluid Total Protein Vancomycin Trough Rheumatoid Factor Complement C4 Miscellaneous Test Crossmatch 09/07/16 09/07/16 09/07/16 09:20 11:43 11:43 WBC 19.4 H RBC Hgb 8.3 L Hct 26.4 L D MCV 72 L D MCH 22 L MCHC RDW 17.9 H Plt Count Lymph % (Auto) 8.5 L [place] % (Auto) Lymph # [place] # 1.0 H Baso # Seg Neutrophils % 85.8 H Seg Neuts % (Manual) Lymphocytes % (Manual) Monocytes % (Manual) Eosinophils % (Manual) Basophils % (Manual) Nucleated RBC % Seg Neutrophils # 16.6 H Seg Neutrophils # Man Lymphocytes # (Manual) Monocytes # (Manual) Eosinophils # (Manual) PT INR Fibrinogen dRVVT Confirm Interp Factor V Activity POC ABG pH POC ABG pCO2 POC ABG pO2 Sodium 134 L Potassium Chloride 97.2 L Carbon Dioxide 20 L BUN 58 H Creatinine 2.9 H Glucose 147 H POC Glucose Lactic Acid Calcium Phosphorus 2.40 L Magnesium 2.40 H Direct Bilirubin AST ALT Alkaline Phosphatase Lactate Dehydrogenase Troponin T C-Reactive Protein Total Protein 5.8 L Albumin 2.2 L Prealbumin Triglycerides Cholesterol LDL Cholesterol Direct HDL Cholesterol Urine pH Urine WBC (Auto) Urine Creatinine Urine Total Protein Fluid Total Protein Vancomycin Trough Rheumatoid Factor Complement C4 58 H Miscellaneous Test Crossmatch 09/07/16 09/07/16 09/07/16 11:50 16:00 17:31 WBC RBC Hgb Hct MCV MCH MCHC RDW Plt Count Lymph % (Auto) [place] % (Auto) Lymph # [place] # Baso # Seg Neutrophils % Seg Neuts % (Manual) Lymphocytes % (Manual) Monocytes % (Manual) Eosinophils % (Manual) Basophils % (Manual) Nucleated RBC % Seg Neutrophils # Seg Neutrophils # Man Lymphocytes # (Manual) Monocytes # (Manual) Eosinophils # (Manual) PT INR Fibrinogen dRVVT Confirm Interp Factor V Activity POC ABG pH POC ABG pCO2 POC ABG pO2 158 H Sodium Potassium Chloride Carbon Dioxide BUN Creatinine Glucose POC Glucose 175 H Lactic Acid Calcium Phosphorus Magnesium Direct Bilirubin AST ALT Alkaline Phosphatase Lactate Dehydrogenase Troponin T C-Reactive Protein Total Protein Albumin Prealbumin Triglycerides Cholesterol LDL Cholesterol Direct HDL Cholesterol Urine pH Urine WBC (Auto) Urine Creatinine 66.3 H Urine Total Protein Fluid Total Protein Vancomycin Trough Rheumatoid Factor Complement C4 Miscellaneous Test Crossmatch 07/19/17 07/20/17 07/20/17 23:50 05:46 06:18 WBC 17.8 H RBC 3.58 L Hgb 8.1 L Hct 25.5 L MCV 71 L MCH 23 L MCHC RDW 18.4 H Plt Count Lymph % (Auto) [place] % (Auto) Lymph # [place] # Baso # Seg Neutrophils % Seg Neuts % (Manual) 92.0 H Lymphocytes % (Manual) 6.0 L Monocytes % (Manual) Eosinophils % (Manual) Basophils % (Manual) Nucleated RBC % Seg Neutrophils # Seg Neutrophils # Man 16.4 H Lymphocytes # (Manual) 1.1 L Monocytes # (Manual) Eosinophils # (Manual) PT INR Fibrinogen dRVVT Confirm Interp Factor V Activity POC ABG pH POC ABG pCO2 34.3 L POC ABG pO2 71 L Sodium Potassium Chloride Carbon Dioxide BUN Creatinine Glucose POC Glucose 216 H Lactic Acid Calcium Phosphorus Magnesium Direct Bilirubin AST ALT Alkaline Phosphatase Lactate Dehydrogenase Troponin T C-Reactive Protein Total Protein Albumin Prealbumin Triglycerides Cholesterol LDL Cholesterol Direct HDL Cholesterol Urine pH Urine WBC (Auto) Urine Creatinine Urine Total Protein Fluid Total Protein Vancomycin Trough Rheumatoid Factor Complement C4 Miscellaneous Test Crossmatch 09/08/16 09/08/16 09/08/16 06:18 06:51 10:55 WBC RBC Hgb Hct MCV MCH MCHC RDW Plt Count Lymph % (Auto) [place] % (Auto) Lymph # [place] # Baso # Seg Neutrophils % Seg Neuts % (Manual) Lymphocytes % (Manual) Monocytes % (Manual) Eosinophils % (Manual) Basophils % (Manual) Nucleated RBC % Seg Neutrophils # Seg Neutrophils # Man Lymphocytes # (Manual) Monocytes # (Manual) Eosinophils # (Manual) PT INR Fibrinogen dRVVT Confirm Interp Factor V Activity POC ABG pH POC ABG pCO2 POC ABG pO2 Sodium 133 L Potassium Chloride 96.9 L Carbon Dioxide 20 L BUN 63 H Creatinine 2.7 H Glucose 195 H POC Glucose 204 H 169 H Lactic Acid Calcium Phosphorus Magnesium Direct Bilirubin AST ALT Alkaline Phosphatase Lactate Dehydrogenase Troponin T C-Reactive Protein Total Protein Albumin Prealbumin Triglycerides Cholesterol LDL Cholesterol Direct HDL Cholesterol Urine pH Urine WBC (Auto) Urine Creatinine Urine Total Protein Fluid Total Protein Vancomycin Trough Rheumatoid Factor Complement C4 Miscellaneous Test Crossmatch 09/08/16 09/08/16 09/08/16 11:48 11:48 11:48 WBC RBC Hgb Hct MCV MCH MCHC RDW Plt Count Lymph % (Auto) [place] % (Auto) Lymph # [place] # Baso # Seg Neutrophils % Seg Neuts % (Manual) Lymphocytes % (Manual) Monocytes % (Manual) Eosinophils % (Manual) Basophils % (Manual) Nucleated RBC % Seg Neutrophils # Seg Neutrophils # Man Lymphocytes # (Manual) Monocytes # (Manual) Eosinophils # (Manual) PT INR Fibrinogen 750 H dRVVT Confirm Interp Factor V Activity POC ABG pH POC ABG pCO2 POC ABG pO2 Sodium Potassium Chloride Carbon Dioxide BUN Creatinine Glucose POC Glucose Lactic Acid Calcium Phosphorus Magnesium Direct Bilirubin AST ALT Alkaline Phosphatase Lactate Dehydrogenase Troponin T C-Reactive Protein 15.70 H Total Protein Albumin Prealbumin Triglycerides Cholesterol LDL Cholesterol Direct HDL Cholesterol Urine pH Urine WBC (Auto) Urine Creatinine Urine Total Protein Fluid Total Protein Vancomycin Trough Rheumatoid Factor 24 H Complement C4 Miscellaneous Test Crossmatch 09/08/16 09/08/16 09/09/16 15:35 18:25 00:24 WBC RBC Hgb Hct MCV MCH MCHC RDW Plt Count Lymph % (Auto) [place] % (Auto) Lymph # [place] # Baso # Seg Neutrophils % Seg Neuts % (Manual) Lymphocytes % (Manual) Monocytes % (Manual) Eosinophils % (Manual) Basophils % (Manual) Nucleated RBC % Seg Neutrophils # Seg Neutrophils # Man Lymphocytes # (Manual) Monocytes # (Manual) Eosinophils # (Manual) PT INR Fibrinogen dRVVT Confirm Interp Factor V Activity 182 H POC ABG pH POC ABG pCO2 POC ABG pO2 Sodium Potassium Chloride Carbon Dioxide BUN Creatinine Glucose POC Glucose 184 H 216 H Lactic Acid Calcium Phosphorus Magnesium Direct Bilirubin AST ALT Alkaline Phosphatase Lactate Dehydrogenase Troponin T C-Reactive Protein Total Protein Albumin Prealbumin Triglycerides Cholesterol LDL Cholesterol Direct HDL Cholesterol Urine pH Urine WBC (Auto) Urine Creatinine Urine Total Protein Fluid Total Protein Vancomycin Trough Rheumatoid Factor Complement C4 Miscellaneous Test Crossmatch 09/09/16 09/09/16 09/09/16 03:00 03:00 04:04 WBC 27.9 H RBC Hgb 8.7 L Hct 28.1 L MCV 72 L MCH 22 L MCHC RDW 18.4 H Plt Count 485 H Lymph % (Auto) [place] % (Auto) Lymph # [place] # Baso # Seg Neutrophils % Seg Neuts % (Manual) 77.0 H Lymphocytes % (Manual) 9.0 L Monocytes % (Manual) Eosinophils % (Manual) Basophils % (Manual) Nucleated RBC % Seg Neutrophils # Seg Neutrophils # Man 21.5 H Lymphocytes # (Manual) Monocytes # (Manual) 2.0 H Eosinophils # (Manual) PT INR Fibrinogen dRVVT Confirm Interp Factor V Activity POC ABG pH POC ABG pCO2 POC ABG pO2 121 H Sodium 135 L Potassium Chloride 96.3 L Carbon Dioxide 21 L BUN 83 H Creatinine 3.0 H Glucose 135 H POC Glucose Lactic Acid Calcium Phosphorus Magnesium Direct Bilirubin AST ALT Alkaline Phosphatase Lactate Dehydrogenase Troponin T C-Reactive Protein Total Protein Albumin Prealbumin Triglycerides Cholesterol LDL Cholesterol Direct HDL Cholesterol Urine pH Urine WBC (Auto) Urine Creatinine Urine Total Protein Fluid Total Protein Vancomycin Trough Rheumatoid Factor Complement C4 Miscellaneous Test Crossmatch 09/09/16 09/09/16 09/09/16 05:41 11:55 14:13 WBC RBC Hgb Hct MCV MCH MCHC RDW Plt Count Lymph % (Auto) [place] % (Auto) Lymph # [place] # Baso # Seg Neutrophils % Seg Neuts % (Manual) Lymphocytes % (Manual) Monocytes % (Manual) Eosinophils % (Manual) Basophils % (Manual) Nucleated RBC % Seg Neutrophils # Seg Neutrophils # Man Lymphocytes # (Manual) Monocytes # (Manual) Eosinophils # (Manual) PT INR Fibrinogen dRVVT Confirm Interp Factor V Activity POC ABG pH POC ABG pCO2 POC ABG pO2 Sodium Potassium Chloride Carbon Dioxide BUN Creatinine Glucose POC Glucose 155 H 186 H Lactic Acid Calcium Phosphorus Magnesium Direct Bilirubin AST ALT Alkaline Phosphatase Lactate Dehydrogenase Troponin T C-Reactive Protein Total Protein Albumin Prealbumin Triglycerides Cholesterol LDL Cholesterol Direct HDL Cholesterol Urine pH Urine WBC (Auto) 25.0 H Urine Creatinine Urine Total Protein Fluid Total Protein Vancomycin Trough Rheumatoid Factor Complement C4 Miscellaneous Test Crossmatch 09/09/16 09/09/16 09/10/16 17:33 23:13 05:09 WBC RBC Hgb Hct MCV MCH MCHC RDW Plt Count Lymph % (Auto) [place] % (Auto) Lymph # [place] # Baso # Seg Neutrophils % Seg Neuts % (Manual) Lymphocytes % (Manual) Monocytes % (Manual) Eosinophils % (Manual) Basophils % (Manual) Nucleated RBC % Seg Neutrophils # Seg Neutrophils # Man Lymphocytes # (Manual) Monocytes # (Manual) Eosinophils # (Manual) PT INR Fibrinogen dRVVT Confirm Interp Factor V Activity POC ABG pH POC ABG pCO2 POC ABG pO2 74 L Sodium Potassium Chloride Carbon Dioxide BUN Creatinine Glucose POC Glucose 211 H 215 H Lactic Acid Calcium Phosphorus Magnesium Direct Bilirubin AST ALT Alkaline Phosphatase Lactate Dehydrogenase Troponin T C-Reactive Protein Total Protein Albumin Prealbumin Triglycerides Cholesterol LDL Cholesterol Direct HDL Cholesterol Urine pH Urine WBC (Auto) Urine Creatinine Urine Total Protein Fluid Total Protein Vancomycin Trough Rheumatoid Factor Complement C4 Miscellaneous Test Crossmatch 09/10/16 09/10/16 09/10/16 05:17 05:17 11:31 WBC 15.8 H RBC 3.25 L Hgb 7.3 L Hct 22.9 L MCV 71 L MCH 23 L MCHC RDW 18.4 H Plt Count Lymph % (Auto) [place] % (Auto) Lymph # [place] # Baso # Seg Neutrophils % Seg Neuts % (Manual) 91.0 H Lymphocytes % (Manual) 4.0 L Monocytes % (Manual) Eosinophils % (Manual) Basophils % (Manual) Nucleated RBC % Seg Neutrophils # Seg Neutrophils # Man 14.4 H Lymphocytes # (Manual) 0.6 L Monocytes # (Manual) Eosinophils # (Manual) PT INR Fibrinogen dRVVT Confirm Interp Factor V Activity POC ABG pH POC ABG pCO2 POC ABG pO2 Sodium Potassium Chloride Carbon Dioxide 21 L BUN 93 H Creatinine 2.9 H Glucose 146 H POC Glucose 188 H Lactic Acid Calcium 8.1 L Phosphorus Magnesium Direct Bilirubin AST ALT Alkaline Phosphatase Lactate Dehydrogenase Troponin T C-Reactive Protein Total Protein Albumin Prealbumin Triglycerides Cholesterol LDL Cholesterol Direct HDL Cholesterol Urine pH Urine WBC (Auto) Urine Creatinine Urine Total Protein Fluid Total Protein Vancomycin Trough Rheumatoid Factor Complement C4 Miscellaneous Test Crossmatch 09/10/16 09/10/16 09/10/16 13:17 17:20 23:32 WBC RBC Hgb Hct MCV MCH MCHC RDW Plt Count Lymph % (Auto) [place] % (Auto) Lymph # [place] # Baso # Seg Neutrophils % Seg Neuts % (Manual) Lymphocytes % (Manual) Monocytes % (Manual) Eosinophils % (Manual) Basophils % (Manual) Nucleated RBC % Seg Neutrophils # Seg Neutrophils # Man Lymphocytes # (Manual) Monocytes # (Manual) Eosinophils # (Manual) PT INR Fibrinogen dRVVT Confirm Interp Factor V Activity POC ABG pH POC ABG pCO2 POC ABG pO2 Sodium Potassium Chloride Carbon Dioxide BUN Creatinine Glucose POC Glucose 199 H 186 H Lactic Acid Calcium Phosphorus Magnesium Direct Bilirubin AST ALT Alkaline Phosphatase Lactate Dehydrogenase Troponin T C-Reactive Protein Total Protein Albumin Prealbumin Triglycerides Cholesterol LDL Cholesterol Direct HDL Cholesterol Urine pH Urine WBC (Auto) Urine Creatinine Urine Total Protein Fluid Total Protein Vancomycin Trough Rheumatoid Factor Complement C4 Miscellaneous Test Crossmatch See Detail 09/11/16 09/11/16 09/11/16 05:10 05:10 05:17 WBC 28.4 H RBC Hgb 9.2 L Hct 29.3 L D MCV 73 L MCH 23 L MCHC RDW 18.9 H Plt Count 452 H Lymph % (Auto) [place] % (Auto) Lymph # [place] # Baso # Seg Neutrophils % Seg Neuts % (Manual) 89.5 H Lymphocytes % (Manual) 2.0 L Monocytes % (Manual) Eosinophils % (Manual) Basophils % (Manual) Nucleated RBC % Seg Neutrophils # Seg Neutrophils # Man 25.4 H Lymphocytes # (Manual) 0.6 L Monocytes # (Manual) 1.3 H Eosinophils # (Manual) PT INR Fibrinogen dRVVT Confirm Interp Factor V Activity POC ABG pH POC ABG pCO2 POC ABG pO2 Sodium 136 L Potassium Chloride Carbon Dioxide 18 L BUN 107 H Creatinine 2.6 H Glucose 187 H POC Glucose 230 H Lactic Acid Calcium 8.3 L Phosphorus Magnesium Direct Bilirubin AST ALT Alkaline Phosphatase Lactate Dehydrogenase Troponin T C-Reactive Protein Total Protein Albumin Prealbumin Triglycerides Cholesterol LDL Cholesterol Direct HDL Cholesterol Urine pH Urine WBC (Auto) Urine Creatinine Urine Total Protein Fluid Total Protein Vancomycin Trough Rheumatoid Factor Complement C4 Miscellaneous Test Crossmatch 09/11/16 09/11/16 09/11/16 05:55 12:02 17:32 WBC RBC Hgb Hct MCV MCH MCHC RDW Plt Count Lymph % (Auto) [place] % (Auto) Lymph # [place] # Baso # Seg Neutrophils % Seg Neuts % (Manual) Lymphocytes % (Manual) Monocytes % (Manual) Eosinophils % (Manual) Basophils % (Manual) Nucleated RBC % Seg Neutrophils # Seg Neutrophils # Man Lymphocytes # (Manual) Monocytes # (Manual) Eosinophils # (Manual) PT INR Fibrinogen dRVVT Confirm Interp Factor V Activity POC ABG pH POC ABG pCO2 33.8 L POC ABG pO2 Sodium Potassium Chloride Carbon Dioxide BUN Creatinine Glucose POC Glucose 191 H 239 H Lactic Acid Calcium Phosphorus Magnesium Direct Bilirubin AST ALT Alkaline Phosphatase Lactate Dehydrogenase Troponin T C-Reactive Protein Total Protein Albumin Prealbumin Triglycerides Cholesterol LDL Cholesterol Direct HDL Cholesterol Urine pH Urine WBC (Auto) Urine Creatinine Urine Total Protein Fluid Total Protein Vancomycin Trough Rheumatoid Factor Complement C4 Miscellaneous Test Crossmatch 09/11/16 09/12/16 09/12/16 23:52 05:09 05:32 WBC RBC Hgb Hct MCV MCH MCHC RDW Plt Count Lymph % (Auto) [place] % (Auto) Lymph # [place] # Baso # Seg Neutrophils % Seg Neuts % (Manual) Lymphocytes % (Manual) Monocytes % (Manual) Eosinophils % (Manual) Basophils % (Manual) Nucleated RBC % Seg Neutrophils # Seg Neutrophils # Man Lymphocytes # (Manual) Monocytes # (Manual) Eosinophils # (Manual) PT INR Fibrinogen dRVVT Confirm Interp Factor V Activity POC ABG pH POC ABG pCO2 34.6 L POC ABG pO2 Sodium Potassium Chloride Carbon Dioxide BUN Creatinine Glucose POC Glucose 265 H 184 H Lactic Acid Calcium Phosphorus Magnesium Direct Bilirubin AST ALT Alkaline Phosphatase Lactate Dehydrogenase Troponin T C-Reactive Protein Total Protein Albumin Prealbumin Triglycerides Cholesterol LDL Cholesterol Direct HDL Cholesterol Urine pH Urine WBC (Auto) Urine Creatinine Urine Total Protein Fluid Total Protein Vancomycin Trough Rheumatoid Factor Complement C4 Miscellaneous Test Crossmatch 09/12/16 09/12/16 09/12/16 06:45 06:45 07:22 WBC 31.7 H RBC 3.54 L Hgb 8.3 L Hct 25.9 L MCV 73 L MCH 23 L MCHC RDW 18.9 H Plt Count Lymph % (Auto) [place] % (Auto) Lymph # [place] # Baso # Seg Neutrophils % Seg Neuts % (Manual) 88.5 H Lymphocytes % (Manual) 4.5 L Monocytes % (Manual) Eosinophils % (Manual) Basophils % (Manual) Nucleated RBC % Seg Neutrophils # Seg Neutrophils # Man 28.1 H Lymphocytes # (Manual) Monocytes # (Manual) 1.0 H Eosinophils # (Manual) PT INR Fibrinogen dRVVT Confirm Interp Factor V Activity POC ABG pH POC ABG pCO2 POC ABG pO2 Sodium Potassium Chloride Carbon Dioxide 20 L BUN 115 H Creatinine 2.7 H Glucose 165 H POC Glucose Lactic Acid Calcium 8.0 L Phosphorus Magnesium Direct Bilirubin AST ALT Alkaline Phosphatase Lactate Dehydrogenase Troponin T C-Reactive Protein Total Protein Albumin Prealbumin Triglycerides 217 H Cholesterol LDL Cholesterol Direct HDL Cholesterol Urine pH Urine WBC (Auto) Urine Creatinine Urine Total Protein Fluid Total Protein Vancomycin Trough Rheumatoid Factor Complement C4 Miscellaneous Test Crossmatch 09/12/16 09/12/16 09/12/16 07:22 09:59 12:21 WBC RBC Hgb Hct MCV MCH MCHC RDW Plt Count Lymph % (Auto) [place] % (Auto) Lymph # [place] # Baso # Seg Neutrophils % Seg Neuts % (Manual) Lymphocytes % (Manual) Monocytes % (Manual) Eosinophils % (Manual) Basophils % (Manual) Nucleated RBC % Seg Neutrophils # Seg Neutrophils # Man Lymphocytes # (Manual) Monocytes # (Manual) Eosinophils # (Manual) PT INR Fibrinogen dRVVT Confirm Interp Positive H Factor V Activity POC ABG pH POC ABG pCO2 POC ABG pO2 Sodium Potassium Chloride Carbon Dioxide BUN Creatinine Glucose POC Glucose 224 H Lactic Acid Calcium Phosphorus Magnesium Direct Bilirubin AST ALT Alkaline Phosphatase Lactate Dehydrogenase Troponin T C-Reactive Protein 1.70 H Total Protein Albumin Prealbumin Triglycerides Cholesterol LDL Cholesterol Direct HDL Cholesterol Urine pH Urine WBC (Auto) Urine Creatinine Urine Total Protein Fluid Total Protein Vancomycin Trough Rheumatoid Factor Complement C4 Miscellaneous Test Crossmatch 09/12/16 09/12/16 09/13/16 16:51 23:28 04:00 WBC 45.0 H* RBC Hgb 9.4 L Hct MCV 75 L MCH 23 L MCHC RDW 19.0 H Plt Count 470 H Lymph % (Auto) [place] % (Auto) Lymph # [place] # Baso # Seg Neutrophils % Seg Neuts % (Manual) 89.0 H Lymphocytes % (Manual) 5.0 L Monocytes % (Manual) Eosinophils % (Manual) Basophils % (Manual) Nucleated RBC % Seg Neutrophils # Seg Neutrophils # Man 40.1 H Lymphocytes # (Manual) Monocytes # (Manual) Eosinophils # (Manual) PT INR Fibrinogen dRVVT Confirm Interp Factor V Activity POC ABG pH POC ABG pCO2 POC ABG pO2 Sodium Potassium Chloride Carbon Dioxide BUN Creatinine Glucose POC Glucose 169 H 150 H Lactic Acid Calcium Phosphorus Magnesium Direct Bilirubin AST ALT Alkaline Phosphatase Lactate Dehydrogenase Troponin T C-Reactive Protein Total Protein Albumin Prealbumin Triglycerides Cholesterol LDL Cholesterol Direct HDL Cholesterol Urine pH Urine WBC (Auto) Urine Creatinine Urine Total Protein Fluid Total Protein Vancomycin Trough Rheumatoid Factor Complement C4 Miscellaneous Test Crossmatch 09/13/16 09/13/16 09/13/16 04:00 11:26 17:31 WBC RBC Hgb Hct MCV MCH MCHC RDW Plt Count Lymph % (Auto) [place] % (Auto) Lymph # [place] # Baso # Seg Neutrophils % Seg Neuts % (Manual) Lymphocytes % (Manual) Monocytes % (Manual) Eosinophils % (Manual) Basophils % (Manual) Nucleated RBC % Seg Neutrophils # Seg Neutrophils # Man Lymphocytes # (Manual) Monocytes # (Manual) Eosinophils # (Manual) PT INR Fibrinogen dRVVT Confirm Interp Factor V Activity POC ABG pH POC ABG pCO2 POC ABG pO2 Sodium Potassium Chloride Carbon Dioxide 20 L BUN 116 H Creatinine 3.0 H Glucose 172 H POC Glucose 140 H 183 H Lactic Acid Calcium Phosphorus Magnesium Direct Bilirubin AST ALT Alkaline Phosphatase Lactate Dehydrogenase Troponin T C-Reactive Protein Total Protein 6.2 L Albumin 2.9 L Prealbumin Triglycerides Cholesterol LDL Cholesterol Direct HDL Cholesterol Urine pH Urine WBC (Auto) Urine Creatinine Urine Total Protein Fluid Total Protein Vancomycin Trough Rheumatoid Factor Complement C4 Miscellaneous Test Crossmatch 09/13/16 09/14/16 09/14/16 23:23 04:06 04:07 WBC 29.4 H RBC Hgb 8.9 L Hct 27.3 L MCV 75 L MCH 24 L MCHC RDW 19.1 H Plt Count Lymph % (Auto) [place] % (Auto) Lymph # [place] # Baso # Seg Neutrophils % Seg Neuts % (Manual) 84.0 H Lymphocytes % (Manual) 6.0 L Monocytes % (Manual) 9.0 H Eosinophils % (Manual) Basophils % (Manual) Nucleated RBC % Seg Neutrophils # Seg Neutrophils # Man 24.7 H Lymphocytes # (Manual) Monocytes # (Manual) 2.6 H Eosinophils # (Manual) PT INR Fibrinogen dRVVT Confirm Interp Factor V Activity POC ABG pH 7.342 L POC ABG pCO2 POC ABG pO2 116 H Sodium Potassium Chloride Carbon Dioxide BUN Creatinine Glucose POC Glucose 154 H Lactic Acid Calcium Phosphorus Magnesium Direct Bilirubin AST ALT Alkaline Phosphatase Lactate Dehydrogenase Troponin T C-Reactive Protein Total Protein Albumin Prealbumin Triglycerides Cholesterol LDL Cholesterol Direct HDL Cholesterol Urine pH Urine WBC (Auto) Urine Creatinine Urine Total Protein Fluid Total Protein Vancomycin Trough Rheumatoid Factor Complement C4 Miscellaneous Test Crossmatch 09/14/16 09/14/16 09/14/16 04:07 05:29 12:19 WBC RBC Hgb Hct MCV MCH MCHC RDW Plt Count Lymph % (Auto) [place] % (Auto) Lymph # [place] # Baso # Seg Neutrophils % Seg Neuts % (Manual) Lymphocytes % (Manual) Monocytes % (Manual) Eosinophils % (Manual) Basophils % (Manual) Nucleated RBC % Seg Neutrophils # Seg Neutrophils # Man Lymphocytes # (Manual) Monocytes # (Manual) Eosinophils # (Manual) PT INR Fibrinogen dRVVT Confirm Interp Factor V Activity POC ABG pH POC ABG pCO2 POC ABG pO2 Sodium 136 L Potassium Chloride Carbon Dioxide 18 L BUN 121 H Creatinine 2.8 H Glucose 214 H POC Glucose 239 H 181 H Lactic Acid Calcium Phosphorus Magnesium Direct Bilirubin AST ALT Alkaline Phosphatase Lactate Dehydrogenase Troponin T C-Reactive Protein Total Protein Albumin Prealbumin Triglycerides Cholesterol LDL Cholesterol Direct HDL Cholesterol Urine pH Urine WBC (Auto) Urine Creatinine Urine Total Protein Fluid Total Protein Vancomycin Trough Rheumatoid Factor Complement C4 Miscellaneous Test Crossmatch 09/14/16 09/14/16 09/15/16 18:12 23:37 05:00 WBC 26.1 H RBC 3.05 L Hgb 7.2 L Hct 22.9 L MCV 75 L MCH 24 L MCHC RDW 19.0 H Plt Count Lymph % (Auto) [place] % (Auto) Lymph # [place] # Baso # Seg Neutrophils % Seg Neuts % (Manual) Lymphocytes % (Manual) Monocytes % (Manual) Eosinophils % (Manual) Basophils % (Manual) Nucleated RBC % Seg Neutrophils # Seg Neutrophils # Man Lymphocytes # (Manual) Monocytes # (Manual) Eosinophils # (Manual) PT INR Fibrinogen dRVVT Confirm Interp Factor V Activity POC ABG pH POC ABG pCO2 POC ABG pO2 Sodium Potassium Chloride Carbon Dioxide BUN Creatinine Glucose POC Glucose 266 H 154 H Lactic Acid Calcium Phosphorus Magnesium Direct Bilirubin AST ALT Alkaline Phosphatase Lactate Dehydrogenase Troponin T C-Reactive Protein Total Protein Albumin Prealbumin Triglycerides Cholesterol LDL Cholesterol Direct HDL Cholesterol Urine pH Urine WBC (Auto) Urine Creatinine Urine Total Protein Fluid Total Protein Vancomycin Trough Rheumatoid Factor Complement C4 Miscellaneous Test Crossmatch 09/15/16 09/15/16 09/15/16 05:00 05:17 12:45 WBC RBC Hgb Hct MCV MCH MCHC RDW Plt Count Lymph % (Auto) [place] % (Auto) Lymph # [place] # Baso # Seg Neutrophils % Seg Neuts % (Manual) Lymphocytes % (Manual) Monocytes % (Manual) Eosinophils % (Manual) Basophils % (Manual) Nucleated RBC % Seg Neutrophils # Seg Neutrophils # Man Lymphocytes # (Manual) Monocytes # (Manual) Eosinophils # (Manual) PT INR Fibrinogen dRVVT Confirm Interp Factor V Activity POC ABG pH POC ABG pCO2 POC ABG pO2 Sodium Potassium 5.2 H Chloride Carbon Dioxide 18 L BUN 139 H Creatinine 3.7 H Glucose 227 H POC Glucose 226 H 244 H Lactic Acid Calcium 8.3 L Phosphorus Magnesium Direct Bilirubin AST ALT Alkaline Phosphatase Lactate Dehydrogenase Troponin T C-Reactive Protein Total Protein Albumin Prealbumin Triglycerides Cholesterol LDL Cholesterol Direct HDL Cholesterol Urine pH Urine WBC (Auto) Urine Creatinine Urine Total Protein Fluid Total Protein Vancomycin Trough Rheumatoid Factor Complement C4 Miscellaneous Test Crossmatch 09/15/16 09/15/16 09/15/16 14:32 17:33 23:35 WBC RBC Hgb Hct MCV MCH MCHC RDW Plt Count Lymph % (Auto) [place] % (Auto) Lymph # [place] # Baso # Seg Neutrophils % Seg Neuts % (Manual) Lymphocytes % (Manual) Monocytes % (Manual) Eosinophils % (Manual) Basophils % (Manual) Nucleated RBC % Seg Neutrophils # Seg Neutrophils # Man Lymphocytes # (Manual) Monocytes # (Manual) Eosinophils # (Manual) PT INR Fibrinogen dRVVT Confirm Interp Factor V Activity POC ABG pH POC ABG pCO2 27.7 L POC ABG pO2 120 H Sodium Potassium Chloride Carbon Dioxide BUN Creatinine Glucose POC Glucose 232 H 167 H Lactic Acid Calcium Phosphorus Magnesium Direct Bilirubin AST ALT Alkaline Phosphatase Lactate Dehydrogenase Troponin T C-Reactive Protein Total Protein Albumin Prealbumin Triglycerides Cholesterol LDL Cholesterol Direct HDL Cholesterol Urine pH Urine WBC (Auto) Urine Creatinine Urine Total Protein Fluid Total Protein Vancomycin Trough Rheumatoid Factor Complement C4 Miscellaneous Test Crossmatch 09/16/16 09/16/16 09/16/16 03:58 10:27 10:27 WBC 19.0 H RBC 2.77 L Hgb 6.5 L Hct 20.9 L MCV 76 L MCH 23 L MCHC RDW 19.3 H Plt Count Lymph % (Auto) 11.0 L [place] % (Auto) Lymph # [place] # 1.1 H Baso # Seg Neutrophils % 82.5 H Seg Neuts % (Manual) Lymphocytes % (Manual) Monocytes % (Manual) Eosinophils % (Manual) Basophils % (Manual) Nucleated RBC % Seg Neutrophils # 15.7 H Seg Neutrophils # Man Lymphocytes # (Manual) Monocytes # (Manual) Eosinophils # (Manual) PT INR Fibrinogen dRVVT Confirm Interp Factor V Activity POC ABG pH POC ABG pCO2 POC ABG pO2 Sodium Potassium Chloride 109.3 H Carbon Dioxide 18 L BUN 139 H Creatinine 4.1 H Glucose 144 H POC Glucose 146 H Lactic Acid Calcium 8.1 L Phosphorus Magnesium Direct Bilirubin AST ALT Alkaline Phosphatase Lactate Dehydrogenase Troponin T C-Reactive Protein Total Protein Albumin Prealbumin Triglycerides Cholesterol LDL Cholesterol Direct HDL Cholesterol Urine pH Urine WBC (Auto) Urine Creatinine Urine Total Protein Fluid Total Protein Vancomycin Trough Rheumatoid Factor Complement C4 Miscellaneous Test Crossmatch 09/16/16 09/16/16 09/16/16 12:04 12:10 13:55 WBC RBC Hgb Hct MCV MCH MCHC RDW Plt Count Lymph % (Auto) [place] % (Auto) Lymph # [place] # Baso # Seg Neutrophils % Seg Neuts % (Manual) Lymphocytes % (Manual) Monocytes % (Manual) Eosinophils % (Manual) Basophils % (Manual) Nucleated RBC % Seg Neutrophils # Seg Neutrophils # Man Lymphocytes # (Manual) Monocytes # (Manual) Eosinophils # (Manual) PT INR Fibrinogen dRVVT Confirm Interp Factor V Activity POC ABG pH POC ABG pCO2 32.9 L POC ABG pO2 Sodium Potassium Chloride Carbon Dioxide BUN Creatinine Glucose POC Glucose 185 H Lactic Acid Calcium Phosphorus Magnesium Direct Bilirubin AST ALT Alkaline Phosphatase Lactate Dehydrogenase Troponin T C-Reactive Protein Total Protein Albumin Prealbumin Triglycerides Cholesterol LDL Cholesterol Direct HDL Cholesterol Urine pH Urine WBC (Auto) Urine Creatinine Urine Total Protein Fluid Total Protein Vancomycin Trough Rheumatoid Factor Complement C4 Miscellaneous Test Crossmatch See Detail 09/16/16 09/16/16 09/16/16 17:55 19:19 23:48 WBC RBC Hgb Hct MCV MCH MCHC RDW Plt Count Lymph % (Auto) [place] % (Auto) Lymph # [place] # Baso # Seg Neutrophils % Seg Neuts % (Manual) Lymphocytes % (Manual) Monocytes % (Manual) Eosinophils % (Manual) Basophils % (Manual) Nucleated RBC % Seg Neutrophils # Seg Neutrophils # Man Lymphocytes # (Manual) Monocytes # (Manual) Eosinophils # (Manual) PT INR Fibrinogen dRVVT Confirm Interp Factor V Activity POC ABG pH POC ABG pCO2 POC ABG pO2 Sodium Potassium Chloride Carbon Dioxide BUN Creatinine Glucose POC Glucose 222 H 107 H Lactic Acid Calcium Phosphorus Magnesium Direct Bilirubin AST ALT Alkaline Phosphatase Lactate Dehydrogenase Troponin T C-Reactive Protein Total Protein Albumin Prealbumin Triglycerides Cholesterol LDL Cholesterol Direct HDL Cholesterol Urine pH Urine WBC (Auto) Urine Creatinine 47.4 H Urine Total Protein 16 H Fluid Total Protein Vancomycin Trough Rheumatoid Factor Complement C4 Miscellaneous Test Crossmatch 09/17/16 09/17/16 09/17/16 03:45 03:45 04:55 WBC 19.6 H RBC 3.41 L Hgb 8.5 L Hct 26.7 L MCV 78 L MCH 25 L MCHC RDW 19.9 H Plt Count Lymph % (Auto) 9.3 L [place] % (Auto) Lymph # [place] # 1.2 H Baso # Seg Neutrophils % 83.9 H Seg Neuts % (Manual) Lymphocytes % (Manual) Monocytes % (Manual) Eosinophils % (Manual) Basophils % (Manual) Nucleated RBC % Seg Neutrophils # 16.4 H Seg Neutrophils # Man Lymphocytes # (Manual) Monocytes # (Manual) Eosinophils # (Manual) PT INR Fibrinogen dRVVT Confirm Interp Factor V Activity POC ABG pH POC ABG pCO2 POC ABG pO2 Sodium 146 H Potassium 5.1 H Chloride 110.9 H Carbon Dioxide 16 L BUN 146 H Creatinine 4.0 H Glucose 108 H POC Glucose 133 H Lactic Acid Calcium Phosphorus Magnesium 3.00 H Direct Bilirubin AST ALT Alkaline Phosphatase Lactate Dehydrogenase Troponin T C-Reactive Protein Total Protein Albumin Prealbumin Triglycerides Cholesterol LDL Cholesterol Direct HDL Cholesterol Urine pH Urine WBC (Auto) Urine Creatinine Urine Total Protein Fluid Total Protein Vancomycin Trough Rheumatoid Factor Complement C4 Miscellaneous Test Crossmatch 09/17/16 09/17/16 09/17/16 11:15 17:33 23:47 WBC RBC Hgb Hct MCV MCH MCHC RDW Plt Count Lymph % (Auto) [place] % (Auto) Lymph # [place] # Baso # Seg Neutrophils % Seg Neuts % (Manual) Lymphocytes % (Manual) Monocytes % (Manual) Eosinophils % (Manual) Basophils % (Manual) Nucleated RBC % Seg Neutrophils # Seg Neutrophils # Man Lymphocytes # (Manual) Monocytes # (Manual) Eosinophils # (Manual) PT INR Fibrinogen dRVVT Confirm Interp Factor V Activity POC ABG pH POC ABG pCO2 POC ABG pO2 Sodium Potassium Chloride Carbon Dioxide BUN Creatinine Glucose POC Glucose 176 H 246 H 148 H Lactic Acid Calcium Phosphorus Magnesium Direct Bilirubin AST ALT Alkaline Phosphatase Lactate Dehydrogenase Troponin T C-Reactive Protein Total Protein Albumin Prealbumin Triglycerides Cholesterol LDL Cholesterol Direct HDL Cholesterol Urine pH Urine WBC (Auto) Urine Creatinine Urine Total Protein Fluid Total Protein Vancomycin Trough Rheumatoid Factor Complement C4 Miscellaneous Test Crossmatch 09/18/16 09/18/16 09/18/16 05:33 08:31 08:31 WBC 18.0 H RBC 3.17 L Hgb 9.0 L Hct 25.7 L MCV MCH MCHC 35 H RDW 20.4 H Plt Count Lymph % (Auto) [place] % (Auto) Lymph # [place] # Baso # Seg Neutrophils % Seg Neuts % (Manual) Lymphocytes % (Manual) Monocytes % (Manual) Eosinophils % (Manual) Basophils % (Manual) Nucleated RBC % Seg Neutrophils # Seg Neutrophils # Man Lymphocytes # (Manual) Monocytes # (Manual) Eosinophils # (Manual) PT INR Fibrinogen dRVVT Confirm Interp Factor V Activity POC ABG pH POC ABG pCO2 POC ABG pO2 Sodium Potassium Chloride Carbon Dioxide 15 L BUN 124 H Creatinine 3.8 H Glucose POC Glucose 120 H Lactic Acid Calcium 8.1 L Phosphorus Magnesium Direct Bilirubin AST ALT Alkaline Phosphatase Lactate Dehydrogenase Troponin T C-Reactive Protein Total Protein Albumin Prealbumin Triglycerides Cholesterol LDL Cholesterol Direct HDL Cholesterol Urine pH Urine WBC (Auto) Urine Creatinine Urine Total Protein Fluid Total Protein Vancomycin Trough Rheumatoid Factor Complement C4 Miscellaneous Test Crossmatch 09/18/16 09/18/16 09/18/16 12:03 15:34 17:50 WBC RBC Hgb Hct MCV MCH MCHC RDW Plt Count Lymph % (Auto) [place] % (Auto) Lymph # [place] # Baso # Seg Neutrophils % Seg Neuts % (Manual) Lymphocytes % (Manual) Monocytes % (Manual) Eosinophils % (Manual) Basophils % (Manual) Nucleated RBC % Seg Neutrophils # Seg Neutrophils # Man Lymphocytes # (Manual) Monocytes # (Manual) Eosinophils # (Manual) PT INR Fibrinogen dRVVT Confirm Interp Factor V Activity POC ABG pH POC ABG pCO2 25.7 L POC ABG pO2 66 L Sodium Potassium Chloride Carbon Dioxide BUN Creatinine Glucose POC Glucose 156 H 220 H Lactic Acid Calcium Phosphorus Magnesium Direct Bilirubin AST ALT Alkaline Phosphatase Lactate Dehydrogenase Troponin T C-Reactive Protein Total Protein Albumin Prealbumin Triglycerides Cholesterol LDL Cholesterol Direct HDL Cholesterol Urine pH Urine WBC (Auto) Urine Creatinine Urine Total Protein Fluid Total Protein Vancomycin Trough Rheumatoid Factor Complement C4 Miscellaneous Test Crossmatch 09/19/16 09/19/16 09/19/16 06:21 09:50 09:50 WBC 17.1 H RBC 3.49 L Hgb 9.0 L Hct 28.1 L MCV MCH 26 L MCHC RDW 20.8 H Plt Count Lymph % (Auto) 11.5 L [place] % (Auto) 7.5 H Lymph # [place] # 1.3 H Baso # Seg Neutrophils % 79.8 H Seg Neuts % (Manual) Lymphocytes % (Manual) Monocytes % (Manual) Eosinophils % (Manual) Basophils % (Manual) Nucleated RBC % Seg Neutrophils # 13.7 H Seg Neutrophils # Man Lymphocytes # (Manual) Monocytes # (Manual) Eosinophils # (Manual) PT INR Fibrinogen dRVVT Confirm Interp Factor V Activity POC ABG pH POC ABG pCO2 POC ABG pO2 Sodium Potassium Chloride 108.6 H Carbon Dioxide 15 L BUN 125 H Creatinine 4.1 H Glucose 124 H POC Glucose 119 H Lactic Acid Calcium Phosphorus Magnesium Direct Bilirubin AST ALT Alkaline Phosphatase Lactate Dehydrogenase Troponin T C-Reactive Protein Total Protein Albumin Prealbumin Triglycerides Cholesterol LDL Cholesterol Direct HDL Cholesterol Urine pH Urine WBC (Auto) Urine Creatinine Urine Total Protein Fluid Total Protein Vancomycin Trough Rheumatoid Factor Complement C4 Miscellaneous Test Crossmatch 09/19/16 09/19/16 09/19/16 11:25 17:53 23:36 WBC RBC Hgb Hct MCV MCH MCHC RDW Plt Count Lymph % (Auto) [place] % (Auto) Lymph # [place] # Baso # Seg Neutrophils % Seg Neuts % (Manual) Lymphocytes % (Manual) Monocytes % (Manual) Eosinophils % (Manual) Basophils % (Manual) Nucleated RBC % Seg Neutrophils # Seg Neutrophils # Man Lymphocytes # (Manual) Monocytes # (Manual) Eosinophils # (Manual) PT INR Fibrinogen dRVVT Confirm Interp Factor V Activity POC ABG pH POC ABG pCO2 POC ABG pO2 Sodium Potassium Chloride Carbon Dioxide BUN Creatinine Glucose POC Glucose 160 H 245 H 121 H Lactic Acid Calcium Phosphorus Magnesium Direct Bilirubin AST ALT Alkaline Phosphatase Lactate Dehydrogenase Troponin T C-Reactive Protein Total Protein Albumin Prealbumin Triglycerides Cholesterol LDL Cholesterol Direct HDL Cholesterol Urine pH Urine WBC (Auto) Urine Creatinine Urine Total Protein Fluid Total Protein Vancomycin Trough Rheumatoid Factor Complement C4 Miscellaneous Test Crossmatch 09/20/16 09/20/16 09/20/16 04:10 04:10 04:10 WBC 17.0 H RBC 3.21 L Hgb 8.2 L Hct 25.5 L MCV MCH 26 L MCHC RDW 20.9 H Plt Count Lymph % (Auto) [place] % (Auto) Lymph # [place] # Baso # Seg Neutrophils % Seg Neuts % (Manual) Lymphocytes % (Manual) Monocytes % (Manual) Eosinophils % (Manual) Basophils % (Manual) Nucleated RBC % Seg Neutrophils # Seg Neutrophils # Man Lymphocytes # (Manual) Monocytes # (Manual) Eosinophils # (Manual) PT INR Fibrinogen dRVVT Confirm Interp Factor V Activity POC ABG pH POC ABG pCO2 POC ABG pO2 Sodium Potassium Chloride 111.0 H Carbon Dioxide 16 L BUN 129 H Creatinine 3.7 H Glucose 115 H POC Glucose Lactic Acid Calcium 8.2 L Phosphorus Magnesium Direct Bilirubin AST ALT Alkaline Phosphatase Lactate Dehydrogenase Troponin T C-Reactive Protein Total Protein Albumin Prealbumin Triglycerides 243 H Cholesterol LDL Cholesterol Direct HDL Cholesterol Urine pH Urine WBC (Auto) Urine Creatinine Urine Total Protein Fluid Total Protein Vancomycin Trough Rheumatoid Factor Complement C4 Miscellaneous Test Crossmatch 09/20/16 09/20/16 09/20/16 05:40 11:52 16:50 WBC RBC Hgb Hct MCV MCH MCHC RDW Plt Count Lymph % (Auto) [place] % (Auto) Lymph # [place] # Baso # Seg Neutrophils % Seg Neuts % (Manual) Lymphocytes % (Manual) Monocytes % (Manual) Eosinophils % (Manual) Basophils % (Manual) Nucleated RBC % Seg Neutrophils # Seg Neutrophils # Man Lymphocytes # (Manual) Monocytes # (Manual) Eosinophils # (Manual) PT INR Fibrinogen dRVVT Confirm Interp Factor V Activity POC ABG pH POC ABG pCO2 POC ABG pO2 Sodium Potassium Chloride Carbon Dioxide BUN Creatinine Glucose POC Glucose 131 H 183 H 236 H Lactic Acid Calcium Phosphorus Magnesium Direct Bilirubin AST ALT Alkaline Phosphatase Lactate Dehydrogenase Troponin T C-Reactive Protein Total Protein Albumin Prealbumin Triglycerides Cholesterol LDL Cholesterol Direct HDL Cholesterol Urine pH Urine WBC (Auto) Urine Creatinine Urine Total Protein Fluid Total Protein Vancomycin Trough Rheumatoid Factor Complement C4 Miscellaneous Test Crossmatch 09/20/16 09/21/16 09/21/16 23:51 03:30 04:44 WBC RBC Hgb Hct MCV MCH MCHC RDW Plt Count Lymph % (Auto) [place] % (Auto) Lymph # [place] # Baso # Seg Neutrophils % Seg Neuts % (Manual) Lymphocytes % (Manual) Monocytes % (Manual) Eosinophils % (Manual) Basophils % (Manual) Nucleated RBC % Seg Neutrophils # Seg Neutrophils # Man Lymphocytes # (Manual) Monocytes # (Manual) Eosinophils # (Manual) PT INR Fibrinogen dRVVT Confirm Interp Factor V Activity POC ABG pH POC ABG pCO2 POC ABG pO2 Sodium Potassium Chloride Carbon Dioxide BUN Creatinine Glucose POC Glucose 114 H 141 H Lactic Acid Calcium Phosphorus Magnesium 2.70 H Direct Bilirubin AST ALT Alkaline Phosphatase Lactate Dehydrogenase Troponin T C-Reactive Protein Total Protein Albumin Prealbumin Triglycerides Cholesterol LDL Cholesterol Direct HDL Cholesterol Urine pH Urine WBC (Auto) Urine Creatinine Urine Total Protein Fluid Total Protein Vancomycin Trough Rheumatoid Factor Complement C4 Miscellaneous Test Crossmatch 09/21/16 09/21/16 09/21/16 07:45 07:45 10:01 WBC 13.8 H RBC 2.94 L Hgb 7.5 L Hct 23.5 L MCV MCH 26 L MCHC RDW 21.2 H Plt Count Lymph % (Auto) 6.9 L [place] % (Auto) 9.4 H Lymph # 0.9 L [place] # 1.3 H Baso # Seg Neutrophils % 83.2 H Seg Neuts % (Manual) Lymphocytes % (Manual) Monocytes % (Manual) Eosinophils % (Manual) Basophils % (Manual) Nucleated RBC % Seg Neutrophils # 11.5 H Seg Neutrophils # Man Lymphocytes # (Manual) Monocytes # (Manual) Eosinophils # (Manual) PT INR Fibrinogen dRVVT Confirm Interp Factor V Activity POC ABG pH 7.308 L POC ABG pCO2 31.9 L POC ABG pO2 148 H Sodium 147 H Potassium Chloride 114.2 H Carbon Dioxide 15 L BUN 120 H Creatinine 3.9 H Glucose 156 H POC Glucose Lactic Acid Calcium 8.2 L Phosphorus Magnesium Direct Bilirubin AST ALT Alkaline Phosphatase Lactate Dehydrogenase Troponin T C-Reactive Protein Total Protein Albumin Prealbumin Triglycerides Cholesterol LDL Cholesterol Direct HDL Cholesterol Urine pH Urine WBC (Auto) Urine Creatinine Urine Total Protein Fluid Total Protein Vancomycin Trough Rheumatoid Factor Complement C4 Miscellaneous Test Crossmatch 09/21/16 09/21/16 09/21/16 12:00 12:03 13:00 WBC RBC Hgb Hct MCV MCH MCHC RDW Plt Count Lymph % (Auto) [place] % (Auto) Lymph # [place] # Baso # Seg Neutrophils % Seg Neuts % (Manual) Lymphocytes % (Manual) Monocytes % (Manual) Eosinophils % (Manual) Basophils % (Manual) Nucleated RBC % Seg Neutrophils # Seg Neutrophils # Man Lymphocytes # (Manual) Monocytes # (Manual) Eosinophils # (Manual) PT INR Fibrinogen dRVVT Confirm Interp Factor V Activity POC ABG pH POC ABG pCO2 POC ABG pO2 Sodium Potassium Chloride Carbon Dioxide BUN Creatinine Glucose POC Glucose 163 H Lactic Acid Calcium Phosphorus Magnesium Direct Bilirubin AST ALT Alkaline Phosphatase Lactate Dehydrogenase Troponin T C-Reactive Protein Total Protein Albumin Prealbumin Triglycerides Cholesterol LDL Cholesterol Direct HDL Cholesterol Urine pH Urine WBC (Auto) Urine Creatinine 54.8 H Urine Total Protein Fluid Total Protein Vancomycin Trough 2.3 L Rheumatoid Factor Complement C4 Miscellaneous Test Crossmatch 09/21/16 09/21/16 09/22/16 16:51 23:17 06:27 WBC RBC Hgb Hct MCV MCH MCHC RDW Plt Count Lymph % (Auto) [place] % (Auto) Lymph # [place] # Baso # Seg Neutrophils % Seg Neuts % (Manual) Lymphocytes % (Manual) Monocytes % (Manual) Eosinophils % (Manual) Basophils % (Manual) Nucleated RBC % Seg Neutrophils # Seg Neutrophils # Man Lymphocytes # (Manual) Monocytes # (Manual) Eosinophils # (Manual) PT INR Fibrinogen dRVVT Confirm Interp Factor V Activity POC ABG pH POC ABG pCO2 POC ABG pO2 Sodium Potassium Chloride Carbon Dioxide BUN Creatinine Glucose POC Glucose 206 H 114 H 115 H Lactic Acid Calcium Phosphorus Magnesium Direct Bilirubin AST ALT Alkaline Phosphatase Lactate Dehydrogenase Troponin T C-Reactive Protein Total Protein Albumin Prealbumin Triglycerides Cholesterol LDL Cholesterol Direct HDL Cholesterol Urine pH Urine WBC (Auto) Urine Creatinine Urine Total Protein Fluid Total Protein Vancomycin Trough Rheumatoid Factor Complement C4 Miscellaneous Test Crossmatch 09/22/16 09/22/16 09/22/16 07:50 07:50 12:00 WBC 17.8 H RBC 3.04 L Hgb 8.0 L Hct 24.7 L MCV MCH 26 L MCHC RDW 21.6 H Plt Count Lymph % (Auto) [place] % (Auto) Lymph # [place] # Baso # Seg Neutrophils % Seg Neuts % (Manual) Lymphocytes % (Manual) Monocytes % (Manual) Eosinophils % (Manual) Basophils % (Manual) Nucleated RBC % Seg Neutrophils # Seg Neutrophils # Man Lymphocytes # (Manual) Monocytes # (Manual) Eosinophils # (Manual) PT INR Fibrinogen dRVVT Confirm Interp Factor V Activity POC ABG pH POC ABG pCO2 POC ABG pO2 Sodium 150 H Potassium Chloride 118.2 H Carbon Dioxide 14 L BUN 111 H Creatinine 3.7 H Glucose 157 H POC Glucose 183 H Lactic Acid Calcium Phosphorus Magnesium Direct Bilirubin AST ALT Alkaline Phosphatase Lactate Dehydrogenase Troponin T C-Reactive Protein Total Protein Albumin Prealbumin Triglycerides Cholesterol LDL Cholesterol Direct HDL Cholesterol Urine pH Urine WBC (Auto) Urine Creatinine Urine Total Protein Fluid Total Protein Vancomycin Trough Rheumatoid Factor Complement C4 Miscellaneous Test Crossmatch 09/22/16 09/22/16 09/23/16 17:29 23:10 05:00 WBC 19.2 H RBC 3.13 L Hgb 8.0 L Hct 25.2 L MCV MCH 26 L MCHC RDW 22.1 H Plt Count Lymph % (Auto) [place] % (Auto) Lymph # [place] # Baso # Seg Neutrophils % Seg Neuts % (Manual) 92.0 H Lymphocytes % (Manual) 3.0 L Monocytes % (Manual) Eosinophils % (Manual) Basophils % (Manual) Nucleated RBC % Seg Neutrophils # Seg Neutrophils # Man 17.7 H Lymphocytes # (Manual) 0.6 L Monocytes # (Manual) Eosinophils # (Manual) PT INR Fibrinogen dRVVT Confirm Interp Factor V Activity POC ABG pH POC ABG pCO2 POC ABG pO2 Sodium Potassium Chloride Carbon Dioxide BUN Creatinine Glucose POC Glucose 197 H 169 H Lactic Acid Calcium Phosphorus Magnesium Direct Bilirubin AST ALT Alkaline Phosphatase Lactate Dehydrogenase Troponin T C-Reactive Protein Total Protein Albumin Prealbumin Triglycerides Cholesterol LDL Cholesterol Direct HDL Cholesterol Urine pH Urine WBC (Auto) Urine Creatinine Urine Total Protein Fluid Total Protein Vancomycin Trough Rheumatoid Factor Complement C4 Miscellaneous Test Crossmatch 09/23/16 09/23/16 09/23/16 05:00 05:00 05:10 WBC RBC Hgb Hct MCV MCH MCHC RDW Plt Count Lymph % (Auto) [place] % (Auto) Lymph # [place] # Baso # Seg Neutrophils % Seg Neuts % (Manual) Lymphocytes % (Manual) Monocytes % (Manual) Eosinophils % (Manual) Basophils % (Manual) Nucleated RBC % Seg Neutrophils # Seg Neutrophils # Man Lymphocytes # (Manual) Monocytes # (Manual) Eosinophils # (Manual) PT INR Fibrinogen dRVVT Confirm Interp Factor V Activity POC ABG pH POC ABG pCO2 POC ABG pO2 Sodium 147 H Potassium 3.2 L Chloride 115.7 H Carbon Dioxide 13 L BUN 111 H Creatinine 3.8 H Glucose 194 H POC Glucose 188 H Lactic Acid Calcium 7.3 L D Phosphorus Magnesium Direct Bilirubin AST ALT Alkaline Phosphatase Lactate Dehydrogenase Troponin T C-Reactive Protein 3.20 H Total Protein Albumin Prealbumin Triglycerides Cholesterol LDL Cholesterol Direct HDL Cholesterol Urine pH Urine WBC (Auto) Urine Creatinine Urine Total Protein Fluid Total Protein Vancomycin Trough Rheumatoid Factor Complement C4 Miscellaneous Test Crossmatch 09/23/16 09/23/16 09/23/16 11:37 12:29 18:01 WBC RBC Hgb Hct MCV MCH MCHC RDW Plt Count Lymph % (Auto) [place] % (Auto) Lymph # [place] # Baso # Seg Neutrophils % Seg Neuts % (Manual) Lymphocytes % (Manual) Monocytes % (Manual) Eosinophils % (Manual) Basophils % (Manual) Nucleated RBC % Seg Neutrophils # Seg Neutrophils # Man Lymphocytes # (Manual) Monocytes # (Manual) Eosinophils # (Manual) PT INR Fibrinogen dRVVT Confirm Interp Factor V Activity POC ABG pH POC ABG pCO2 18.9 L POC ABG pO2 143 H Sodium Potassium Chloride Carbon Dioxide BUN Creatinine Glucose POC Glucose 153 H 108 H Lactic Acid Calcium Phosphorus Magnesium Direct Bilirubin AST ALT Alkaline Phosphatase Lactate Dehydrogenase Troponin T C-Reactive Protein Total Protein Albumin Prealbumin Triglycerides Cholesterol LDL Cholesterol Direct HDL Cholesterol Urine pH Urine WBC (Auto) Urine Creatinine Urine Total Protein Fluid Total Protein Vancomycin Trough Rheumatoid Factor Complement C4 Miscellaneous Test Crossmatch 09/23/16 09/23/16 09/24/16 21:19 23:43 05:16 WBC RBC Hgb Hct MCV MCH MCHC RDW Plt Count Lymph % (Auto) [place] % (Auto) Lymph # [place] # Baso # Seg Neutrophils % Seg Neuts % (Manual) Lymphocytes % (Manual) Monocytes % (Manual) Eosinophils % (Manual) Basophils % (Manual) Nucleated RBC % Seg Neutrophils # Seg Neutrophils # Man Lymphocytes # (Manual) Monocytes # (Manual) Eosinophils # (Manual) PT INR Fibrinogen dRVVT Confirm Interp Factor V Activity POC ABG pH POC ABG pCO2 17.3 L POC ABG pO2 112 H Sodium Potassium Chloride Carbon Dioxide BUN Creatinine Glucose POC Glucose 143 H 164 H Lactic Acid Calcium Phosphorus Magnesium Direct Bilirubin AST ALT Alkaline Phosphatase Lactate Dehydrogenase Troponin T C-Reactive Protein Total Protein Albumin Prealbumin Triglycerides Cholesterol LDL Cholesterol Direct HDL Cholesterol Urine pH Urine WBC (Auto) Urine Creatinine Urine Total Protein Fluid Total Protein Vancomycin Trough Rheumatoid Factor Complement C4 Miscellaneous Test Crossmatch 09/24/16 09/24/16 09/24/16 05:21 11:58 17:06 WBC RBC Hgb Hct MCV MCH MCHC RDW Plt Count Lymph % (Auto) [place] % (Auto) Lymph # [place] # Baso # Seg Neutrophils % Seg Neuts % (Manual) Lymphocytes % (Manual) Monocytes % (Manual) Eosinophils % (Manual) Basophils % (Manual) Nucleated RBC % Seg Neutrophils # Seg Neutrophils # Man Lymphocytes # (Manual) Monocytes # (Manual) Eosinophils # (Manual) PT INR Fibrinogen dRVVT Confirm Interp Factor V Activity POC ABG pH POC ABG pCO2 POC ABG pO2 Sodium Potassium Chloride Carbon Dioxide 10 L BUN 103 H Creatinine 4.3 H Glucose 163 H POC Glucose 173 H 167 H Lactic Acid Calcium 6.5 L Phosphorus Magnesium Direct Bilirubin AST ALT Alkaline Phosphatase Lactate Dehydrogenase Troponin T C-Reactive Protein Total Protein Albumin Prealbumin Triglycerides Cholesterol LDL Cholesterol Direct HDL Cholesterol Urine pH Urine WBC (Auto) Urine Creatinine Urine Total Protein Fluid Total Protein Vancomycin Trough Rheumatoid Factor Complement C4 Miscellaneous Test Crossmatch 09/24/16 09/24/16 09/24/16 20:15 21:02 23:48 WBC RBC Hgb Hct MCV MCH MCHC RDW Plt Count Lymph % (Auto) [place] % (Auto) Lymph # [place] # Baso # Seg Neutrophils % Seg Neuts % (Manual) Lymphocytes % (Manual) Monocytes % (Manual) Eosinophils % (Manual) Basophils % (Manual) Nucleated RBC % Seg Neutrophils # Seg Neutrophils # Man Lymphocytes # (Manual) Monocytes # (Manual) Eosinophils # (Manual) PT INR Fibrinogen dRVVT Confirm Interp Factor V Activity POC ABG pH 7.288 L POC ABG pCO2 30.2 L 21.5 L POC ABG pO2 32 L 39 L Sodium Potassium Chloride Carbon Dioxide BUN Creatinine Glucose POC Glucose 109 H Lactic Acid Calcium Phosphorus Magnesium Direct Bilirubin AST ALT Alkaline Phosphatase Lactate Dehydrogenase Troponin T C-Reactive Protein Total Protein Albumin Prealbumin Triglycerides Cholesterol LDL Cholesterol Direct HDL Cholesterol Urine pH Urine WBC (Auto) Urine Creatinine Urine Total Protein Fluid Total Protein Vancomycin Trough Rheumatoid Factor Complement C4 Miscellaneous Test Crossmatch 09/25/16 09/25/16 09/25/16 04:20 04:20 04:20 WBC RBC 2.58 L Hgb 7.0 L Hct 21.0 L MCV MCH 27 L MCHC RDW 23.8 H Plt Count Lymph % (Auto) [place] % (Auto) Lymph # [place] # Baso # Seg Neutrophils % Seg Neuts % (Manual) Lymphocytes % (Manual) 12.0 L Monocytes % (Manual) Eosinophils % (Manual) 7.0 H Basophils % (Manual) 2.0 H Nucleated RBC % Seg Neutrophils # Seg Neutrophils # Man Lymphocytes # (Manual) 0.9 L Monocytes # (Manual) Eosinophils # (Manual) 0.5 H PT INR Fibrinogen dRVVT Confirm Interp Factor V Activity POC ABG pH POC ABG pCO2 POC ABG pO2 Sodium Potassium Chloride Carbon Dioxide 15 L BUN 72 H Creatinine 3.8 H Glucose POC Glucose Lactic Acid Calcium 6.0 L Phosphorus 4.60 H Magnesium 1.60 L Direct Bilirubin AST ALT Alkaline Phosphatase Lactate Dehydrogenase Troponin T C-Reactive Protein Total Protein Albumin Prealbumin Triglycerides Cholesterol LDL Cholesterol Direct HDL Cholesterol Urine pH Urine WBC (Auto) Urine Creatinine Urine Total Protein Fluid Total Protein Vancomycin Trough Rheumatoid Factor Complement C4 Miscellaneous Test Crossmatch 09/25/16 09/25/16 09/25/16 04:57 08:02 10:30 WBC RBC Hgb Hct MCV MCH MCHC RDW Plt Count Lymph % (Auto) [place] % (Auto) Lymph # [place] # Baso # Seg Neutrophils % Seg Neuts % (Manual) Lymphocytes % (Manual) Monocytes % (Manual) Eosinophils % (Manual) Basophils % (Manual) Nucleated RBC % Seg Neutrophils # Seg Neutrophils # Man Lymphocytes # (Manual) Monocytes # (Manual) Eosinophils # (Manual) PT INR Fibrinogen dRVVT Confirm Interp Factor V Activity POC ABG pH POC ABG pCO2 24.7 L POC ABG pO2 152 H Sodium Potassium Chloride Carbon Dioxide BUN Creatinine Glucose POC Glucose 113 H Lactic Acid Calcium Phosphorus Magnesium Direct Bilirubin AST ALT Alkaline Phosphatase Lactate Dehydrogenase Troponin T C-Reactive Protein Total Protein Albumin Prealbumin Triglycerides Cholesterol LDL Cholesterol Direct HDL Cholesterol Urine pH Urine WBC (Auto) Urine Creatinine Urine Total Protein Fluid Total Protein Vancomycin Trough Rheumatoid Factor Complement C4 Miscellaneous Test Crossmatch See Detail 09/25/16 09/25/16 09/25/16 12:05 17:44 23:47 WBC RBC Hgb Hct MCV MCH MCHC RDW Plt Count Lymph % (Auto) [place] % (Auto) Lymph # [place] # Baso # Seg Neutrophils % Seg Neuts % (Manual) Lymphocytes % (Manual) Monocytes % (Manual) Eosinophils % (Manual) Basophils % (Manual) Nucleated RBC % Seg Neutrophils # Seg Neutrophils # Man Lymphocytes # (Manual) Monocytes # (Manual) Eosinophils # (Manual) PT INR Fibrinogen dRVVT Confirm Interp Factor V Activity POC ABG pH POC ABG pCO2 POC ABG pO2 Sodium Potassium Chloride Carbon Dioxide BUN Creatinine Glucose POC Glucose 117 H 119 H 150 H Lactic Acid Calcium Phosphorus Magnesium Direct Bilirubin AST ALT Alkaline Phosphatase Lactate Dehydrogenase Troponin T C-Reactive Protein Total Protein Albumin Prealbumin Triglycerides Cholesterol LDL Cholesterol Direct HDL Cholesterol Urine pH Urine WBC (Auto) Urine Creatinine Urine Total Protein Fluid Total Protein Vancomycin Trough Rheumatoid Factor Complement C4 Miscellaneous Test Crossmatch 09/26/16 09/26/16 09/26/16 04:25 04:25 04:25 WBC RBC 2.65 L Hgb 7.4 L Hct 21.6 L MCV MCH MCHC RDW 22.5 H Plt Count Lymph % (Auto) [place] % (Auto) Lymph # [place] # Baso # Seg Neutrophils % Seg Neuts % (Manual) Lymphocytes % (Manual) 6.0 L Monocytes % (Manual) Eosinophils % (Manual) 11.0 H Basophils % (Manual) Nucleated RBC % Seg Neutrophils # Seg Neutrophils # Man Lymphocytes # (Manual) 0.4 L Monocytes # (Manual) Eosinophils # (Manual) 0.6 H PT INR Fibrinogen dRVVT Confirm Interp Factor V Activity POC ABG pH POC ABG pCO2 POC ABG pO2 Sodium Potassium Chloride 97.0 L Carbon Dioxide 19 L BUN 43 H Creatinine 2.6 H Glucose 130 H POC Glucose Lactic Acid 4.40 H* Calcium 6.7 L Phosphorus Magnesium Direct Bilirubin AST ALT Alkaline Phosphatase Lactate Dehydrogenase Troponin T C-Reactive Protein Total Protein Albumin Prealbumin Triglycerides Cholesterol LDL Cholesterol Direct HDL Cholesterol Urine pH Urine WBC (Auto) Urine Creatinine Urine Total Protein Fluid Total Protein Vancomycin Trough Rheumatoid Factor Complement C4 Miscellaneous Test Crossmatch 09/26/16 09/26/16 09/26/16 05:20 11:44 12:12 WBC RBC Hgb Hct MCV MCH MCHC RDW Plt Count Lymph % (Auto) [place] % (Auto) Lymph # [place] # Baso # Seg Neutrophils % Seg Neuts % (Manual) Lymphocytes % (Manual) Monocytes % (Manual) Eosinophils % (Manual) Basophils % (Manual) Nucleated RBC % Seg Neutrophils # Seg Neutrophils # Man Lymphocytes # (Manual) Monocytes # (Manual) Eosinophils # (Manual) PT INR Fibrinogen dRVVT Confirm Interp Factor V Activity POC ABG pH POC ABG pCO2 27.0 L POC ABG pO2 69 L Sodium Potassium Chloride Carbon Dioxide BUN Creatinine Glucose POC Glucose 121 H 128 H Lactic Acid Calcium Phosphorus Magnesium Direct Bilirubin AST ALT Alkaline Phosphatase Lactate Dehydrogenase Troponin T C-Reactive Protein Total Protein Albumin Prealbumin Triglycerides Cholesterol LDL Cholesterol Direct HDL Cholesterol Urine pH Urine WBC (Auto) Urine Creatinine Urine Total Protein Fluid Total Protein Vancomycin Trough Rheumatoid Factor Complement C4 Miscellaneous Test Crossmatch 09/26/16 09/26/16 09/27/16 18:31 23:40 08:20 WBC RBC Hgb Hct MCV MCH MCHC RDW Plt Count Lymph % (Auto) [place] % (Auto) Lymph # [place] # Baso # Seg Neutrophils % Seg Neuts % (Manual) Lymphocytes % (Manual) Monocytes % (Manual) Eosinophils % (Manual) Basophils % (Manual) Nucleated RBC % Seg Neutrophils # Seg Neutrophils # Man Lymphocytes # (Manual) Monocytes # (Manual) Eosinophils # (Manual) PT INR Fibrinogen dRVVT Confirm Interp Factor V Activity POC ABG pH POC ABG pCO2 POC ABG pO2 Sodium Potassium Chloride Carbon Dioxide BUN Creatinine Glucose POC Glucose 120 H 133 H Lactic Acid 4.10 H* Calcium Phosphorus Magnesium Direct Bilirubin AST ALT Alkaline Phosphatase Lactate Dehydrogenase Troponin T C-Reactive Protein Total Protein Albumin Prealbumin Triglycerides Cholesterol LDL Cholesterol Direct HDL Cholesterol Urine pH Urine WBC (Auto) Urine Creatinine Urine Total Protein Fluid Total Protein Vancomycin Trough Rheumatoid Factor Complement C4 Miscellaneous Test Crossmatch 09/27/16 09/27/16 09/27/16 11:23 15:00 18:15 WBC RBC Hgb Hct MCV MCH MCHC RDW Plt Count Lymph % (Auto) [place] % (Auto) Lymph # [place] # Baso # Seg Neutrophils % Seg Neuts % (Manual) Lymphocytes % (Manual) Monocytes % (Manual) Eosinophils % (Manual) Basophils % (Manual) Nucleated RBC % Seg Neutrophils # Seg Neutrophils # Man Lymphocytes # (Manual) Monocytes # (Manual) Eosinophils # (Manual) PT INR Fibrinogen dRVVT Confirm Interp Factor V Activity POC ABG pH 7.459 H POC ABG pCO2 27.1 L POC ABG pO2 140 H Sodium Potassium Chloride Carbon Dioxide BUN Creatinine Glucose POC Glucose 114 H 127 H Lactic Acid Calcium Phosphorus Magnesium Direct Bilirubin AST ALT Alkaline Phosphatase Lactate Dehydrogenase Troponin T C-Reactive Protein Total Protein Albumin Prealbumin Triglycerides Cholesterol LDL Cholesterol Direct HDL Cholesterol Urine pH Urine WBC (Auto) Urine Creatinine Urine Total Protein Fluid Total Protein Vancomycin Trough Rheumatoid Factor Complement C4 Miscellaneous Test Crossmatch 09/27/16 09/27/16 09/28/16 Unknown Unknown 03:45 WBC RBC 2.49 L Hgb 6.8 L Hct 20.7 L MCV MCH 27 L MCHC RDW 22.1 H Plt Count Lymph % (Auto) [place] % (Auto) Lymph # [place] # Baso # Seg Neutrophils % Seg Neuts % (Manual) 32.0 L Lymphocytes % (Manual) 12.0 L Monocytes % (Manual) 11.0 H Eosinophils % (Manual) 10.0 H Basophils % (Manual) Nucleated RBC % Seg Neutrophils # Seg Neutrophils # Man Lymphocytes # (Manual) 1.0 L Monocytes # (Manual) 0.9 H Eosinophils # (Manual) 0.8 H PT INR Fibrinogen dRVVT Confirm Interp Factor V Activity POC ABG pH POC ABG pCO2 POC ABG pO2 Sodium 135 L 135 L Potassium 3.5 L Chloride 93.6 L 94.4 L Carbon Dioxide 17 L 21 L BUN 45 H 28 H Creatinine 3.3 H 2.5 H Glucose 106 H POC Glucose Lactic Acid Calcium 7.3 L 7.1 L Phosphorus Magnesium Direct Bilirubin AST ALT Alkaline Phosphatase Lactate Dehydrogenase Troponin T C-Reactive Protein Total Protein Albumin Prealbumin Triglycerides Cholesterol LDL Cholesterol Direct HDL Cholesterol Urine pH Urine WBC (Auto) Urine Creatinine Urine Total Protein Fluid Total Protein Vancomycin Trough Rheumatoid Factor Complement C4 Miscellaneous Test Crossmatch 09/28/16 09/28/16 09/28/16 03:45 07:25 11:58 WBC 13.3 H RBC 3.01 L Hgb 8.4 L Hct 25.0 L MCV MCH MCHC RDW 20.5 H Plt Count 128 L Lymph % (Auto) [place] % (Auto) Lymph # [place] # Baso # Seg Neutrophils % Seg Neuts % (Manual) Lymphocytes % (Manual) 7.0 L Monocytes % (Manual) Eosinophils % (Manual) 6.0 H Basophils % (Manual) Nucleated RBC % Seg Neutrophils # Seg Neutrophils # Man Lymphocytes # (Manual) 0.9 L Monocytes # (Manual) Eosinophils # (Manual) 0.8 H PT INR Fibrinogen dRVVT Confirm Interp Factor V Activity POC ABG pH POC ABG pCO2 POC ABG pO2 Sodium Potassium Chloride Carbon Dioxide BUN Creatinine Glucose POC Glucose 121 H Lactic Acid 4.50 H* Calcium Phosphorus Magnesium Direct Bilirubin AST ALT Alkaline Phosphatase Lactate Dehydrogenase Troponin T C-Reactive Protein Total Protein Albumin Prealbumin Triglycerides Cholesterol LDL Cholesterol Direct HDL Cholesterol Urine pH Urine WBC (Auto) Urine Creatinine Urine Total Protein Fluid Total Protein Vancomycin Trough Rheumatoid Factor Complement C4 Miscellaneous Test Crossmatch 09/29/16 09/29/16 09/29/16 06:45 06:45 06:45 WBC 14.9 H RBC 2.74 L Hgb 7.6 L Hct 23.2 L MCV MCH MCHC RDW 20.5 H Plt Count 81 L Lymph % (Auto) [place] % (Auto) Lymph # [place] # Baso # Seg Neutrophils % Seg Neuts % (Manual) 81.0 H Lymphocytes % (Manual) 4.0 L Monocytes % (Manual) Eosinophils % (Manual) Basophils % (Manual) Nucleated RBC % Seg Neutrophils # Seg Neutrophils # Man 12.1 H Lymphocytes # (Manual) 0.6 L Monocytes # (Manual) Eosinophils # (Manual) PT INR Fibrinogen dRVVT Confirm Interp Factor V Activity POC ABG pH POC ABG pCO2 POC ABG pO2 Sodium 133 L Potassium 3.4 L Chloride 92.5 L Carbon Dioxide 21 L BUN 33 H Creatinine 3.0 H Glucose POC Glucose Lactic Acid Calcium 6.6 L Phosphorus Magnesium 1.40 L Direct Bilirubin 0.9 H AST ALT Alkaline Phosphatase Lactate Dehydrogenase Troponin T C-Reactive Protein Total Protein 4.3 L Albumin 1.3 L Prealbumin Triglycerides Cholesterol LDL Cholesterol Direct HDL Cholesterol Urine pH Urine WBC (Auto) Urine Creatinine Urine Total Protein Fluid Total Protein Vancomycin Trough Rheumatoid Factor Complement C4 Miscellaneous Test Crossmatch 09/29/16 09/29/16 09/30/16 17:52 20:12 00:07 WBC RBC Hgb Hct MCV MCH MCHC RDW Plt Count Lymph % (Auto) [place] % (Auto) Lymph # [place] # Baso # Seg Neutrophils % Seg Neuts % (Manual) Lymphocytes % (Manual) Monocytes % (Manual) Eosinophils % (Manual) Basophils % (Manual) Nucleated RBC % Seg Neutrophils # Seg Neutrophils # Man Lymphocytes # (Manual) Monocytes # (Manual) Eosinophils # (Manual) PT INR Fibrinogen dRVVT Confirm Interp Factor V Activity POC ABG pH POC ABG pCO2 POC ABG pO2 Sodium Potassium Chloride Carbon Dioxide BUN Creatinine Glucose POC Glucose 50 L 51 L Lactic Acid Calcium Phosphorus Magnesium Direct Bilirubin AST ALT Alkaline Phosphatase Lactate Dehydrogenase Troponin T 0.204 H* C-Reactive Protein Total Protein Albumin Prealbumin Triglycerides Cholesterol 31 L LDL Cholesterol Direct 4 L HDL Cholesterol 3 L Urine pH Urine WBC (Auto) Urine Creatinine Urine Total Protein Fluid Total Protein Vancomycin Trough Rheumatoid Factor Complement C4 Miscellaneous Test Crossmatch 09/30/16 09/30/16 09/30/16 01:30 05:15 06:10 WBC RBC Hgb Hct MCV MCH MCHC RDW Plt Count Lymph % (Auto) [place] % (Auto) Lymph # [place] # Baso # Seg Neutrophils % Seg Neuts % (Manual) Lymphocytes % (Manual) Monocytes % (Manual) Eosinophils % (Manual) Basophils % (Manual) Nucleated RBC % Seg Neutrophils # Seg Neutrophils # Man Lymphocytes # (Manual) Monocytes # (Manual) Eosinophils # (Manual) PT INR Fibrinogen dRVVT Confirm Interp Factor V Activity POC ABG pH POC ABG pCO2 POC ABG pO2 Sodium 133 L Potassium 3.2 L Chloride 93.2 L Carbon Dioxide 19 L BUN 36 H Creatinine 3.2 H Glucose 104 H POC Glucose 167 H 146 H Lactic Acid Calcium 6.4 L Phosphorus Magnesium 1.60 L Direct Bilirubin AST ALT Alkaline Phosphatase Lactate Dehydrogenase Troponin T C-Reactive Protein Total Protein Albumin Prealbumin Triglycerides Cholesterol LDL Cholesterol Direct HDL Cholesterol Urine pH Urine WBC (Auto) Urine Creatinine Urine Total Protein Fluid Total Protein Vancomycin Trough Rheumatoid Factor Complement C4 Miscellaneous Test Crossmatch 09/30/16 09/30/16 09/30/16 11:26 13:39 18:38 WBC RBC Hgb Hct MCV MCH MCHC RDW Plt Count Lymph % (Auto) [place] % (Auto) Lymph # [place] # Baso # Seg Neutrophils % Seg Neuts % (Manual) Lymphocytes % (Manual) Monocytes % (Manual) Eosinophils % (Manual) Basophils % (Manual) Nucleated RBC % Seg Neutrophils # Seg Neutrophils # Man Lymphocytes # (Manual) Monocytes # (Manual) Eosinophils # (Manual) PT INR Fibrinogen dRVVT Confirm Interp Factor V Activity POC ABG pH 7.479 H POC ABG pCO2 29.8 L POC ABG pO2 117 H Sodium Potassium Chloride Carbon Dioxide BUN Creatinine Glucose POC Glucose 140 H 122 H Lactic Acid Calcium Phosphorus Magnesium Direct Bilirubin AST ALT Alkaline Phosphatase Lactate Dehydrogenase Troponin T C-Reactive Protein Total Protein Albumin Prealbumin Triglycerides Cholesterol LDL Cholesterol Direct HDL Cholesterol Urine pH Urine WBC (Auto) Urine Creatinine Urine Total Protein Fluid Total Protein Vancomycin Trough Rheumatoid Factor Complement C4 Miscellaneous Test Crossmatch 10/01/16 10/01/16 10/01/16 06:00 06:00 12:37 WBC 12.6 H RBC 2.75 L Hgb 7.3 L Hct 23.3 L MCV MCH 27 L MCHC RDW 20.6 H Plt Count 72 L Lymph % (Auto) [place] % (Auto) Lymph # [place] # Baso # Seg Neutrophils % Seg Neuts % (Manual) 31.0 L Lymphocytes % (Manual) 8.0 L Monocytes % (Manual) Eosinophils % (Manual) Basophils % (Manual) Nucleated RBC % 3.0 H Seg Neutrophils # Seg Neutrophils # Man Lymphocytes # (Manual) 1.0 L Monocytes # (Manual) Eosinophils # (Manual) PT INR Fibrinogen dRVVT Confirm Interp Factor V Activity POC ABG pH POC ABG pCO2 POC ABG pO2 Sodium 127 L Potassium Chloride 86.8 L Carbon Dioxide 20 L BUN 42 H Creatinine 3.5 H Glucose POC Glucose 65 L Lactic Acid Calcium 7.0 L Phosphorus Magnesium Direct Bilirubin AST ALT Alkaline Phosphatase Lactate Dehydrogenase Troponin T C-Reactive Protein Total Protein Albumin Prealbumin Triglycerides Cholesterol LDL Cholesterol Direct HDL Cholesterol Urine pH Urine WBC (Auto) Urine Creatinine Urine Total Protein Fluid Total Protein Vancomycin Trough Rheumatoid Factor Complement C4 Miscellaneous Test Crossmatch 10/01/16 10/01/16 10/02/16 17:39 23:32 00:59 WBC RBC Hgb Hct MCV MCH MCHC RDW Plt Count Lymph % (Auto) [place] % (Auto) Lymph # [place] # Baso # Seg Neutrophils % Seg Neuts % (Manual) Lymphocytes % (Manual) Monocytes % (Manual) Eosinophils % (Manual) Basophils % (Manual) Nucleated RBC % Seg Neutrophils # Seg Neutrophils # Man Lymphocytes # (Manual) Monocytes # (Manual) Eosinophils # (Manual) PT INR Fibrinogen dRVVT Confirm Interp Factor V Activity POC ABG pH POC ABG pCO2 POC ABG pO2 Sodium Potassium Chloride Carbon Dioxide BUN Creatinine Glucose POC Glucose 107 H 52 L 145 H Lactic Acid Calcium Phosphorus Magnesium Direct Bilirubin AST ALT Alkaline Phosphatase Lactate Dehydrogenase Troponin T C-Reactive Protein Total Protein Albumin Prealbumin Triglycerides Cholesterol LDL Cholesterol Direct HDL Cholesterol Urine pH Urine WBC (Auto) Urine Creatinine Urine Total Protein Fluid Total Protein Vancomycin Trough Rheumatoid Factor Complement C4 Miscellaneous Test Crossmatch 10/02/16 10/02/16 10/02/16 10:30 10:50 10:50 WBC 14.7 H RBC 2.76 L Hgb 7.4 L Hct 23.6 L MCV MCH 27 L MCHC RDW 20.2 H Plt Count 79 L Lymph % (Auto) [place] % (Auto) Lymph # [place] # Baso # Seg Neutrophils % Seg Neuts % (Manual) 86.0 H Lymphocytes % (Manual) 6.0 L Monocytes % (Manual) Eosinophils % (Manual) Basophils % (Manual) Nucleated RBC % Seg Neutrophils # Seg Neutrophils # Man 12.6 H Lymphocytes # (Manual) 0.9 L Monocytes # (Manual) Eosinophils # (Manual) PT INR Fibrinogen dRVVT Confirm Interp Factor V Activity POC ABG pH 7.486 H POC ABG pCO2 30.1 L POC ABG pO2 108 H Sodium 131 L Potassium 3.4 L Chloride 89.9 L Carbon Dioxide BUN 26 H Creatinine 2.6 H Glucose POC Glucose Lactic Acid Calcium 7.0 L Phosphorus Magnesium Direct Bilirubin AST ALT Alkaline Phosphatase Lactate Dehydrogenase Troponin T C-Reactive Protein Total Protein Albumin Prealbumin Triglycerides Cholesterol LDL Cholesterol Direct HDL Cholesterol Urine pH Urine WBC (Auto) Urine Creatinine Urine Total Protein Fluid Total Protein Vancomycin Trough Rheumatoid Factor Complement C4 Miscellaneous Test Crossmatch 10/02/16 10/03/16 10/03/16 23:45 00:45 05:10 WBC 12.9 H RBC 2.77 L Hgb 7.6 L Hct 23.7 L MCV MCH 27 L MCHC RDW 19.7 H Plt Count 89 L Lymph % (Auto) [place] % (Auto) Lymph # [place] # Baso # Seg Neutrophils % Seg Neuts % (Manual) Lymphocytes % (Manual) 8.0 L Monocytes % (Manual) Eosinophils % (Manual) Basophils % (Manual) Nucleated RBC % Seg Neutrophils # 11.9 H Seg Neutrophils # Man Lymphocytes # (Manual) 1.0 L Monocytes # (Manual) Eosinophils # (Manual) PT INR Fibrinogen dRVVT Confirm Interp Factor V Activity POC ABG pH POC ABG pCO2 POC ABG pO2 Sodium Potassium Chloride Carbon Dioxide BUN Creatinine Glucose POC Glucose 55 L 199 H Lactic Acid Calcium Phosphorus Magnesium Direct Bilirubin AST ALT Alkaline Phosphatase Lactate Dehydrogenase Troponin T C-Reactive Protein Total Protein Albumin Prealbumin Triglycerides Cholesterol LDL Cholesterol Direct HDL Cholesterol Urine pH Urine WBC (Auto) Urine Creatinine Urine Total Protein Fluid Total Protein Vancomycin Trough Rheumatoid Factor Complement C4 Miscellaneous Test Crossmatch 10/03/16 10/03/16 10/03/16 05:10 12:14 13:18 WBC RBC Hgb Hct MCV MCH MCHC RDW Plt Count Lymph % (Auto) [place] % (Auto) Lymph # [place] # Baso # Seg Neutrophils % Seg Neuts % (Manual) Lymphocytes % (Manual) Monocytes % (Manual) Eosinophils % (Manual) Basophils % (Manual) Nucleated RBC % Seg Neutrophils # Seg Neutrophils # Man Lymphocytes # (Manual) Monocytes # (Manual) Eosinophils # (Manual) PT INR Fibrinogen dRVVT Confirm Interp Factor V Activity POC ABG pH POC ABG pCO2 POC ABG pO2 Sodium 129 L Potassium 3.3 L Chloride 88.8 L Carbon Dioxide 20 L BUN 29 H Creatinine 2.8 H Glucose POC Glucose 68 L 127 H Lactic Acid Calcium 7.2 L Phosphorus Magnesium Direct Bilirubin AST ALT Alkaline Phosphatase Lactate Dehydrogenase Troponin T C-Reactive Protein Total Protein Albumin Prealbumin Triglycerides Cholesterol LDL Cholesterol Direct HDL Cholesterol Urine pH Urine WBC (Auto) Urine Creatinine Urine Total Protein Fluid Total Protein Vancomycin Trough Rheumatoid Factor Complement C4 Miscellaneous Test Crossmatch 10/03/16 10/03/16 10/03/16 14:42 18:21 19:09 WBC RBC Hgb Hct MCV MCH MCHC RDW Plt Count Lymph % (Auto) [place] % (Auto) Lymph # [place] # Baso # Seg Neutrophils % Seg Neuts % (Manual) Lymphocytes % (Manual) Monocytes % (Manual) Eosinophils % (Manual) Basophils % (Manual) Nucleated RBC % Seg Neutrophils # Seg Neutrophils # Man Lymphocytes # (Manual) Monocytes # (Manual) Eosinophils # (Manual) PT INR Fibrinogen dRVVT Confirm Interp Factor V Activity POC ABG pH 7.499 H POC ABG pCO2 28.4 L POC ABG pO2 44 L Sodium Potassium Chloride Carbon Dioxide BUN Creatinine Glucose POC Glucose 64 L 205 H Lactic Acid Calcium Phosphorus Magnesium Direct Bilirubin AST ALT Alkaline Phosphatase Lactate Dehydrogenase Troponin T C-Reactive Protein Total Protein Albumin Prealbumin Triglycerides Cholesterol LDL Cholesterol Direct HDL Cholesterol Urine pH Urine WBC (Auto) Urine Creatinine Urine Total Protein Fluid Total Protein Vancomycin Trough Rheumatoid Factor Complement C4 Miscellaneous Test Crossmatch 10/03/16 10/04/16 10/04/16 23:33 04:18 06:30 WBC RBC 2.54 L Hgb 7.1 L Hct 21.7 L MCV MCH MCHC RDW 19.5 H Plt Count 76 L Lymph % (Auto) [place] % (Auto) Lymph # [place] # Baso # Seg Neutrophils % Seg Neuts % (Manual) 88.0 H Lymphocytes % (Manual) 6.0 L Monocytes % (Manual) Eosinophils % (Manual) Basophils % (Manual) Nucleated RBC % Seg Neutrophils # Seg Neutrophils # Man 8.8 H Lymphocytes # (Manual) 0.6 L Monocytes # (Manual) Eosinophils # (Manual) PT INR Fibrinogen dRVVT Confirm Interp Factor V Activity POC ABG pH 7.461 H POC ABG pCO2 33.6 L POC ABG pO2 211 H Sodium Potassium Chloride Carbon Dioxide BUN Creatinine Glucose POC Glucose 136 H Lactic Acid Calcium Phosphorus Magnesium Direct Bilirubin AST ALT Alkaline Phosphatase Lactate Dehydrogenase Troponin T C-Reactive Protein Total Protein Albumin Prealbumin Triglycerides Cholesterol LDL Cholesterol Direct HDL Cholesterol Urine pH Urine WBC (Auto) Urine Creatinine Urine Total Protein Fluid Total Protein Vancomycin Trough Rheumatoid Factor Complement C4 Miscellaneous Test Crossmatch 10/04/16 10/04/16 10/04/16 06:30 11:45 17:54 WBC RBC Hgb Hct MCV MCH MCHC RDW Plt Count Lymph % (Auto) [place] % (Auto) Lymph # [place] # Baso # Seg Neutrophils % Seg Neuts % (Manual) Lymphocytes % (Manual) Monocytes % (Manual) Eosinophils % (Manual) Basophils % (Manual) Nucleated RBC % Seg Neutrophils # Seg Neutrophils # Man Lymphocytes # (Manual) Monocytes # (Manual) Eosinophils # (Manual) PT INR Fibrinogen dRVVT Confirm Interp Factor V Activity POC ABG pH POC ABG pCO2 POC ABG pO2 Sodium 128 L Potassium Chloride 87.4 L Carbon Dioxide 20 L BUN 34 H Creatinine 2.9 H Glucose 127 H POC Glucose 158 H 160 H Lactic Acid Calcium 7.4 L Phosphorus Magnesium Direct Bilirubin AST ALT Alkaline Phosphatase Lactate Dehydrogenase Troponin T C-Reactive Protein Total Protein Albumin Prealbumin Triglycerides Cholesterol LDL Cholesterol Direct HDL Cholesterol Urine pH Urine WBC (Auto) Urine Creatinine Urine Total Protein Fluid Total Protein Vancomycin Trough Rheumatoid Factor Complement C4 Miscellaneous Test Crossmatch 10/04/16 10/05/16 10/05/16 23:25 04:30 05:00 WBC RBC 2.64 L Hgb 7.5 L Hct 22.6 L MCV MCH MCHC RDW 19.3 H Plt Count 80 L Lymph % (Auto) [place] % (Auto) Lymph # [place] # Baso # Seg Neutrophils % Seg Neuts % (Manual) Lymphocytes % (Manual) 12.0 L Monocytes % (Manual) Eosinophils % (Manual) Basophils % (Manual) Nucleated RBC % Seg Neutrophils # Seg Neutrophils # Man Lymphocytes # (Manual) Monocytes # (Manual) Eosinophils # (Manual) PT INR Fibrinogen dRVVT Confirm Interp Factor V Activity POC ABG pH 7.475 H POC ABG pCO2 33.3 L POC ABG pO2 140 H Sodium Potassium Chloride Carbon Dioxide BUN Creatinine Glucose POC Glucose 141 H Lactic Acid Calcium Phosphorus Magnesium Direct Bilirubin AST ALT Alkaline Phosphatase Lactate Dehydrogenase Troponin T C-Reactive Protein Total Protein Albumin Prealbumin Triglycerides Cholesterol LDL Cholesterol Direct HDL Cholesterol Urine pH Urine WBC (Auto) Urine Creatinine Urine Total Protein Fluid Total Protein Vancomycin Trough Rheumatoid Factor Complement C4 Miscellaneous Test Crossmatch 10/05/16 10/05/16 10/05/16 05:00 05:09 12:58 WBC RBC Hgb Hct MCV MCH MCHC RDW Plt Count Lymph % (Auto) [place] % (Auto) Lymph # [place] # Baso # Seg Neutrophils % Seg Neuts % (Manual) Lymphocytes % (Manual) Monocytes % (Manual) Eosinophils % (Manual) Basophils % (Manual) Nucleated RBC % Seg Neutrophils # Seg Neutrophils # Man Lymphocytes # (Manual) Monocytes # (Manual) Eosinophils # (Manual) PT INR Fibrinogen dRVVT Confirm Interp Factor V Activity POC ABG pH POC ABG pCO2 POC ABG pO2 Sodium 131 L Potassium Chloride 94.0 L Carbon Dioxide 20 L BUN 22 H Creatinine 2.0 H Glucose 123 H POC Glucose 166 H 179 H Lactic Acid Calcium 7.7 L Phosphorus 2.20 L D Magnesium Direct Bilirubin AST ALT Alkaline Phosphatase Lactate Dehydrogenase Troponin T C-Reactive Protein Total Protein Albumin Prealbumin Triglycerides Cholesterol LDL Cholesterol Direct HDL Cholesterol Urine pH Urine WBC (Auto) Urine Creatinine Urine Total Protein Fluid Total Protein Vancomycin Trough Rheumatoid Factor Complement C4 Miscellaneous Test Crossmatch 10/05/16 10/05/16 10/05/16 15:50 18:53 23:12 WBC RBC Hgb Hct MCV MCH MCHC RDW Plt Count Lymph % (Auto) [place] % (Auto) Lymph # [place] # Baso # Seg Neutrophils % Seg Neuts % (Manual) Lymphocytes % (Manual) Monocytes % (Manual) Eosinophils % (Manual) Basophils % (Manual) Nucleated RBC % Seg Neutrophils # Seg Neutrophils # Man Lymphocytes # (Manual) Monocytes # (Manual) Eosinophils # (Manual) PT INR Fibrinogen dRVVT Confirm Interp Factor V Activity POC ABG pH POC ABG pCO2 POC ABG pO2 Sodium Potassium Chloride Carbon Dioxide BUN Creatinine Glucose POC Glucose 150 H 164 H Lactic Acid Calcium Phosphorus Magnesium Direct Bilirubin AST ALT Alkaline Phosphatase Lactate Dehydrogenase Troponin T C-Reactive Protein Total Protein Albumin Prealbumin Triglycerides Cholesterol LDL Cholesterol Direct HDL Cholesterol Urine pH Urine WBC (Auto) Urine Creatinine Urine Total Protein Fluid Total Protein Vancomycin Trough Rheumatoid Factor Complement C4 Miscellaneous Test Crossmatch See Detail 10/06/16 10/06/16 10/06/16 03:50 03:50 04:53 WBC RBC 3.00 L Hgb 8.6 L Hct 25.8 L MCV MCH MCHC RDW 17.9 H Plt Count 65 L Lymph % (Auto) [place] % (Auto) Lymph # [place] # Baso # Seg Neutrophils % Seg Neuts % (Manual) 30.0 L Lymphocytes % (Manual) 5.0 L Monocytes % (Manual) Eosinophils % (Manual) Basophils % (Manual) Nucleated RBC % Seg Neutrophils # Seg Neutrophils # Man Lymphocytes # (Manual) 0.4 L Monocytes # (Manual) Eosinophils # (Manual) PT INR Fibrinogen dRVVT Confirm Interp Factor V Activity POC ABG pH 7.310 L POC ABG pCO2 49.0 H POC ABG pO2 Sodium 133 L Potassium Chloride 95.9 L Carbon Dioxide BUN 26 H Creatinine 2.0 H Glucose 116 H POC Glucose Lactic Acid Calcium 7.8 L Phosphorus Magnesium Direct Bilirubin AST ALT Alkaline Phosphatase Lactate Dehydrogenase Troponin T C-Reactive Protein Total Protein Albumin Prealbumin Triglycerides Cholesterol LDL Cholesterol Direct HDL Cholesterol Urine pH Urine WBC (Auto) Urine Creatinine Urine Total Protein Fluid Total Protein Vancomycin Trough Rheumatoid Factor Complement C4 Miscellaneous Test Crossmatch 10/06/16 10/06/16 10/06/16 05:23 11:52 18:34 WBC RBC Hgb Hct MCV MCH MCHC RDW Plt Count Lymph % (Auto) [place] % (Auto) Lymph # [place] # Baso # Seg Neutrophils % Seg Neuts % (Manual) Lymphocytes % (Manual) Monocytes % (Manual) Eosinophils % (Manual) Basophils % (Manual) Nucleated RBC % Seg Neutrophils # Seg Neutrophils # Man Lymphocytes # (Manual) Monocytes # (Manual) Eosinophils # (Manual) PT INR Fibrinogen dRVVT Confirm Interp Factor V Activity POC ABG pH POC ABG pCO2 POC ABG pO2 Sodium Potassium Chloride Carbon Dioxide BUN Creatinine Glucose POC Glucose 126 H 116 H 129 H Lactic Acid Calcium Phosphorus Magnesium Direct Bilirubin AST ALT Alkaline Phosphatase Lactate Dehydrogenase Troponin T C-Reactive Protein Total Protein Albumin Prealbumin Triglycerides Cholesterol LDL Cholesterol Direct HDL Cholesterol Urine pH Urine WBC (Auto) Urine Creatinine Urine Total Protein Fluid Total Protein Vancomycin Trough Rheumatoid Factor Complement C4 Miscellaneous Test Crossmatch 10/07/16 10/07/16 10/07/16 03:45 05:00 10:00 WBC 17.0 H RBC 2.68 L Hgb 7.3 L Hct 25.3 L MCV MCH 27 L MCHC 29 L RDW 19.6 H Plt Count 74 L Lymph % (Auto) [place] % (Auto) Lymph # [place] # Baso # Seg Neutrophils % Seg Neuts % (Manual) Lymphocytes % (Manual) 12.0 L Monocytes % (Manual) Eosinophils % (Manual) Basophils % (Manual) Nucleated RBC % 4.0 H Seg Neutrophils # Seg Neutrophils # Man 10.7 H Lymphocytes # (Manual) Monocytes # (Manual) Eosinophils # (Manual) PT INR Fibrinogen dRVVT Confirm Interp Factor V Activity POC ABG pH POC ABG pCO2 POC ABG pO2 Sodium 130 L Potassium 3.2 L Chloride 93.9 L Carbon Dioxide 20 L BUN 44 H Creatinine 2.7 H Glucose 129 H POC Glucose Lactic Acid Calcium 7.4 L Phosphorus Magnesium Direct Bilirubin AST ALT 6 L Alkaline Phosphatase 195 H Lactate Dehydrogenase Troponin T C-Reactive Protein Total Protein 4.9 L Albumin 1.0 L Prealbumin Triglycerides Cholesterol LDL Cholesterol Direct HDL Cholesterol Urine pH Urine WBC (Auto) Urine Creatinine Urine Total Protein Fluid Total Protein Vancomycin Trough Rheumatoid Factor Complement C4 Miscellaneous Test Flexitest 1 H Crossmatch 10/07/16 10/07/16 10/07/16 10:00 11:24 18:10 WBC RBC Hgb Hct MCV MCH MCHC RDW Plt Count Lymph % (Auto) [place] % (Auto) Lymph # [place] # Baso # Seg Neutrophils % Seg Neuts % (Manual) Lymphocytes % (Manual) Monocytes % (Manual) Eosinophils % (Manual) Basophils % (Manual) Nucleated RBC % Seg Neutrophils # Seg Neutrophils # Man Lymphocytes # (Manual) Monocytes # (Manual) Eosinophils # (Manual) PT INR Fibrinogen dRVVT Confirm Interp Factor V Activity POC ABG pH POC ABG pCO2 POC ABG pO2 Sodium Potassium Chloride Carbon Dioxide BUN Creatinine Glucose POC Glucose 116 H 130 H Lactic Acid Calcium Phosphorus Magnesium Direct Bilirubin AST ALT Alkaline Phosphatase Lactate Dehydrogenase Troponin T C-Reactive Protein 19.40 H Total Protein Albumin Prealbumin Triglycerides Cholesterol LDL Cholesterol Direct HDL Cholesterol Urine pH Urine WBC (Auto) Urine Creatinine Urine Total Protein Fluid Total Protein Vancomycin Trough Rheumatoid Factor Complement C4 Miscellaneous Test Crossmatch 10/07/16 10/08/16 10/08/16 18:30 00:00 04:00 WBC RBC Hgb Hct MCV MCH MCHC RDW Plt Count Lymph % (Auto) [place] % (Auto) Lymph # [place] # Baso # Seg Neutrophils % Seg Neuts % (Manual) Lymphocytes % (Manual) Monocytes % (Manual) Eosinophils % (Manual) Basophils % (Manual) Nucleated RBC % Seg Neutrophils # Seg Neutrophils # Man Lymphocytes # (Manual) Monocytes # (Manual) Eosinophils # (Manual) PT INR Fibrinogen dRVVT Confirm Interp Factor V Activity POC ABG pH POC ABG pCO2 POC ABG pO2 Sodium 132 L Potassium 3.3 L Chloride 93.6 L Carbon Dioxide 17 L BUN 59 H Creatinine 2.7 H Glucose 121 H POC Glucose 122 H Lactic Acid Calcium 7.6 L Phosphorus Magnesium Direct Bilirubin AST ALT Alkaline Phosphatase Lactate Dehydrogenase Troponin T C-Reactive Protein Total Protein Albumin Prealbumin Triglycerides Cholesterol LDL Cholesterol Direct HDL Cholesterol Urine pH Urine WBC (Auto) > 182.0 H Urine Creatinine Urine Total Protein Fluid Total Protein Vancomycin Trough Rheumatoid Factor Complement C4 Miscellaneous Test Crossmatch 10/08/16 10/08/16 10/08/16 04:30 05:30 11:51 WBC RBC 5.15 H Hgb 14.4 H D Hct 44.5 H D MCV MCH MCHC RDW 19.5 H Plt Count 56 L Lymph % (Auto) [place] % (Auto) Lymph # [place] # Baso # Seg Neutrophils % Seg Neuts % (Manual) 24.0 L Lymphocytes % (Manual) 8.0 L Monocytes % (Manual) Eosinophils % (Manual) Basophils % (Manual) Nucleated RBC % 9.0 H Seg Neutrophils # Seg Neutrophils # Man Lymphocytes # (Manual) 0.7 L Monocytes # (Manual) Eosinophils # (Manual) PT INR Fibrinogen dRVVT Confirm Interp Factor V Activity POC ABG pH POC ABG pCO2 POC ABG pO2 Sodium Potassium Chloride Carbon Dioxide BUN Creatinine Glucose POC Glucose 125 H 150 H Lactic Acid Calcium Phosphorus Magnesium Direct Bilirubin AST ALT Alkaline Phosphatase Lactate Dehydrogenase Troponin T C-Reactive Protein Total Protein Albumin Prealbumin Triglycerides Cholesterol LDL Cholesterol Direct HDL Cholesterol Urine pH Urine WBC (Auto) Urine Creatinine Urine Total Protein Fluid Total Protein Vancomycin Trough Rheumatoid Factor Complement C4 Miscellaneous Test Crossmatch 10/08/16 10/08/16 10/08/16 12:49 17:07 19:30 WBC RBC Hgb 7.1 L D Hct 22.4 L D MCV MCH MCHC RDW Plt Count Lymph % (Auto) [place] % (Auto) Lymph # [place] # Baso # Seg Neutrophils % Seg Neuts % (Manual) Lymphocytes % (Manual) Monocytes % (Manual) Eosinophils % (Manual) Basophils % (Manual) Nucleated RBC % Seg Neutrophils # Seg Neutrophils # Man Lymphocytes # (Manual) Monocytes # (Manual) Eosinophils # (Manual) PT INR Fibrinogen dRVVT Confirm Interp Factor V Activity POC ABG pH POC ABG pCO2 28.2 L POC ABG pO2 111 H Sodium Potassium Chloride Carbon Dioxide BUN Creatinine Glucose POC Glucose 145 H Lactic Acid Calcium Phosphorus Magnesium Direct Bilirubin AST ALT Alkaline Phosphatase Lactate Dehydrogenase Troponin T C-Reactive Protein Total Protein Albumin Prealbumin Triglycerides Cholesterol LDL Cholesterol Direct HDL Cholesterol Urine pH Urine WBC (Auto) Urine Creatinine Urine Total Protein Fluid Total Protein Vancomycin Trough Rheumatoid Factor Complement C4 Miscellaneous Test Crossmatch 10/08/16 10/09/16 10/09/16 19:30 03:45 03:45 WBC 12.6 H RBC 2.36 L Hgb 6.7 L Hct 21.1 L MCV MCH MCHC RDW 19.5 H Plt Count 75 L Lymph % (Auto) [place] % (Auto) Lymph # [place] # Baso # Seg Neutrophils % Seg Neuts % (Manual) Lymphocytes % (Manual) Monocytes % (Manual) 10.0 H Eosinophils % (Manual) Basophils % (Manual) Nucleated RBC % 3.0 H Seg Neutrophils # Seg Neutrophils # Man Lymphocytes # (Manual) Monocytes # (Manual) 1.3 H Eosinophils # (Manual) PT 18.0 H INR 1.41 H Fibrinogen dRVVT Confirm Interp Factor V Activity POC ABG pH POC ABG pCO2 POC ABG pO2 Sodium 135 L Potassium Chloride Carbon Dioxide 17 L BUN 81 H Creatinine 3.2 H Glucose 109 H POC Glucose Lactic Acid Calcium 7.4 L Phosphorus 4.60 H D Magnesium Direct Bilirubin AST ALT Alkaline Phosphatase Lactate Dehydrogenase Troponin T C-Reactive Protein Total Protein Albumin Prealbumin Triglycerides Cholesterol LDL Cholesterol Direct HDL Cholesterol Urine pH Urine WBC (Auto) Urine Creatinine Urine Total Protein Fluid Total Protein Vancomycin Trough Rheumatoid Factor Complement C4 Miscellaneous Test Crossmatch 10/09/16 10/09/16 10/09/16 03:45 05:14 07:20 WBC RBC Hgb Hct MCV MCH MCHC RDW Plt Count Lymph % (Auto) [place] % (Auto) Lymph # [place] # Baso # Seg Neutrophils % Seg Neuts % (Manual) Lymphocytes % (Manual) Monocytes % (Manual) Eosinophils % (Manual) Basophils % (Manual) Nucleated RBC % Seg Neutrophils # Seg Neutrophils # Man Lymphocytes # (Manual) Monocytes # (Manual) Eosinophils # (Manual) PT 19.0 H INR 1.51 H Fibrinogen dRVVT Confirm Interp Factor V Activity POC ABG pH POC ABG pCO2 POC ABG pO2 Sodium Potassium Chloride Carbon Dioxide BUN Creatinine Glucose POC Glucose 151 H Lactic Acid Calcium Phosphorus Magnesium Direct Bilirubin AST ALT Alkaline Phosphatase Lactate Dehydrogenase Troponin T C-Reactive Protein Total Protein Albumin Prealbumin Triglycerides Cholesterol LDL Cholesterol Direct HDL Cholesterol Urine pH Urine WBC (Auto) Urine Creatinine Urine Total Protein Fluid Total Protein Vancomycin Trough Rheumatoid Factor Complement C4 Miscellaneous Test Crossmatch See Detail 10/09/16 10/09/16 10/09/16 11:46 16:20 16:43 WBC RBC Hgb 7.2 L Hct 22.2 L MCV MCH MCHC RDW Plt Count Lymph % (Auto) [place] % (Auto) Lymph # [place] # Baso # Seg Neutrophils % Seg Neuts % (Manual) Lymphocytes % (Manual) Monocytes % (Manual) Eosinophils % (Manual) Basophils % (Manual) Nucleated RBC % Seg Neutrophils # Seg Neutrophils # Man Lymphocytes # (Manual) Monocytes # (Manual) Eosinophils # (Manual) PT INR Fibrinogen dRVVT Confirm Interp Factor V Activity POC ABG pH POC ABG pCO2 POC ABG pO2 Sodium Potassium Chloride Carbon Dioxide BUN Creatinine Glucose POC Glucose 133 H 141 H Lactic Acid Calcium Phosphorus Magnesium Direct Bilirubin AST ALT Alkaline Phosphatase Lactate Dehydrogenase Troponin T C-Reactive Protein Total Protein Albumin Prealbumin Triglycerides Cholesterol LDL Cholesterol Direct HDL Cholesterol Urine pH Urine WBC (Auto) Urine Creatinine Urine Total Protein Fluid Total Protein Vancomycin Trough Rheumatoid Factor Complement C4 Miscellaneous Test Crossmatch 10/10/16 10/10/16 10/10/16 05:00 05:00 11:19 WBC 18.5 H RBC 2.19 L Hgb 6.4 L Hct 19.6 L* MCV MCH MCHC RDW 19.3 H Plt Count 93 L Lymph % (Auto) [place] % (Auto) Lymph # [place] # Baso # Seg Neutrophils % Seg Neuts % (Manual) Lymphocytes % (Manual) 10.0 L Monocytes % (Manual) Eosinophils % (Manual) Basophils % (Manual) Nucleated RBC % 4.0 H Seg Neutrophils # Seg Neutrophils # Man 11.3 H Lymphocytes # (Manual) Monocytes # (Manual) Eosinophils # (Manual) PT INR Fibrinogen dRVVT Confirm Interp Factor V Activity POC ABG pH POC ABG pCO2 POC ABG pO2 Sodium Potassium 5.7 H D Chloride Carbon Dioxide 16 L BUN 94 H Creatinine 3.1 H Glucose 131 H POC Glucose 153 H Lactic Acid Calcium 8.2 L Phosphorus 5.10 H Magnesium 2.40 H Direct Bilirubin 0.3 H AST ALT < 5 L Alkaline Phosphatase 319 H Lactate Dehydrogenase Troponin T C-Reactive Protein Total Protein 5.1 L Albumin 1.0 L Prealbumin Triglycerides Cholesterol LDL Cholesterol Direct HDL Cholesterol Urine pH Urine WBC (Auto) Urine Creatinine Urine Total Protein Fluid Total Protein Vancomycin Trough Rheumatoid Factor Complement C4 Miscellaneous Test Crossmatch 10/10/16 10/10/16 10/11/16 17:50 23:30 04:15 WBC RBC Hgb Hct MCV MCH MCHC RDW Plt Count Lymph % (Auto) [place] % (Auto) Lymph # [place] # Baso # Seg Neutrophils % Seg Neuts % (Manual) Lymphocytes % (Manual) Monocytes % (Manual) Eosinophils % (Manual) Basophils % (Manual) Nucleated RBC % Seg Neutrophils # Seg Neutrophils # Man Lymphocytes # (Manual) Monocytes # (Manual) Eosinophils # (Manual) PT INR Fibrinogen dRVVT Confirm Interp Factor V Activity POC ABG pH POC ABG pCO2 POC ABG pO2 Sodium Potassium Chloride 96.4 L Carbon Dioxide 21 L BUN 57 H Creatinine 2.1 H Glucose 151 H POC Glucose 146 H 141 H Lactic Acid Calcium 8.3 L Phosphorus Magnesium Direct Bilirubin AST ALT Alkaline Phosphatase Lactate Dehydrogenase Troponin T C-Reactive Protein Total Protein Albumin Prealbumin Triglycerides Cholesterol LDL Cholesterol Direct HDL Cholesterol Urine pH Urine WBC (Auto) Urine Creatinine Urine Total Protein Fluid Total Protein Vancomycin Trough Rheumatoid Factor Complement C4 Miscellaneous Test Crossmatch 10/11/16 10/11/16 10/11/16 04:15 04:15 05:30 WBC 28.3 H RBC 3.12 L Hgb 9.3 L Hct 28.7 L D MCV MCH MCHC RDW 17.7 H Plt Count 128 L Lymph % (Auto) [place] % (Auto) Lymph # [place] # Baso # Seg Neutrophils % Seg Neuts % (Manual) Lymphocytes % (Manual) Monocytes % (Manual) Eosinophils % (Manual) Basophils % (Manual) Nucleated RBC % Seg Neutrophils # Seg Neutrophils # Man Lymphocytes # (Manual) Monocytes # (Manual) Eosinophils # (Manual) PT INR Fibrinogen dRVVT Confirm Interp Factor V Activity POC ABG pH POC ABG pCO2 POC ABG pO2 Sodium Potassium Chloride Carbon Dioxide BUN Creatinine Glucose POC Glucose 167 H Lactic Acid Calcium Phosphorus Magnesium Direct Bilirubin AST ALT Alkaline Phosphatase Lactate Dehydrogenase Troponin T C-Reactive Protein 15.80 H Total Protein Albumin Prealbumin Triglycerides Cholesterol LDL Cholesterol Direct HDL Cholesterol Urine pH Urine WBC (Auto) Urine Creatinine Urine Total Protein Fluid Total Protein Vancomycin Trough Rheumatoid Factor Complement C4 Miscellaneous Test Crossmatch 10/11/16 10/11/16 10/11/16 11:40 15:49 23:57 WBC RBC Hgb Hct MCV MCH MCHC RDW Plt Count Lymph % (Auto) [place] % (Auto) Lymph # [place] # Baso # Seg Neutrophils % Seg Neuts % (Manual) Lymphocytes % (Manual) Monocytes % (Manual) Eosinophils % (Manual) Basophils % (Manual) Nucleated RBC % Seg Neutrophils # Seg Neutrophils # Man Lymphocytes # (Manual) Monocytes # (Manual) Eosinophils # (Manual) PT INR Fibrinogen dRVVT Confirm Interp Factor V Activity POC ABG pH POC ABG pCO2 POC ABG pO2 Sodium Potassium Chloride Carbon Dioxide BUN Creatinine Glucose POC Glucose 139 H 168 H 161 H Lactic Acid Calcium Phosphorus Magnesium Direct Bilirubin AST ALT Alkaline Phosphatase Lactate Dehydrogenase Troponin T C-Reactive Protein Total Protein Albumin Prealbumin Triglycerides Cholesterol LDL Cholesterol Direct HDL Cholesterol Urine pH Urine WBC (Auto) Urine Creatinine Urine Total Protein Fluid Total Protein Vancomycin Trough Rheumatoid Factor Complement C4 Miscellaneous Test Crossmatch 10/12/16 10/12/16 10/12/16 04:40 04:40 05:44 WBC 22.5 H RBC 2.88 L Hgb 8.8 L Hct 26.8 L MCV MCH MCHC RDW 17.8 H Plt Count Lymph % (Auto) [place] % (Auto) Lymph # [place] # Baso # Seg Neutrophils % Seg Neuts % (Manual) Lymphocytes % (Manual) Monocytes % (Manual) Eosinophils % (Manual) Basophils % (Manual) Nucleated RBC % Seg Neutrophils # Seg Neutrophils # Man Lymphocytes # (Manual) Monocytes # (Manual) Eosinophils # (Manual) PT INR Fibrinogen dRVVT Confirm Interp Factor V Activity POC ABG pH POC ABG pCO2 POC ABG pO2 Sodium 134 L Potassium Chloride 93.0 L Carbon Dioxide BUN 74 H Creatinine 2.5 H Glucose 137 H POC Glucose 158 H Lactic Acid Calcium 8.2 L Phosphorus Magnesium Direct Bilirubin AST ALT Alkaline Phosphatase Lactate Dehydrogenase Troponin T C-Reactive Protein Total Protein Albumin Prealbumin Triglycerides Cholesterol LDL Cholesterol Direct HDL Cholesterol Urine pH Urine WBC (Auto) Urine Creatinine Urine Total Protein Fluid Total Protein Vancomycin Trough Rheumatoid Factor Complement C4 Miscellaneous Test Crossmatch 10/12/16 10/12/16 10/12/16 12:27 18:18 23:46 WBC RBC Hgb Hct MCV MCH MCHC RDW Plt Count Lymph % (Auto) [place] % (Auto) Lymph # [place] # Baso # Seg Neutrophils % Seg Neuts % (Manual) Lymphocytes % (Manual) Monocytes % (Manual) Eosinophils % (Manual) Basophils % (Manual) Nucleated RBC % Seg Neutrophils # Seg Neutrophils # Man Lymphocytes # (Manual) Monocytes # (Manual) Eosinophils # (Manual) PT INR Fibrinogen dRVVT Confirm Interp Factor V Activity POC ABG pH POC ABG pCO2 POC ABG pO2 Sodium Potassium Chloride Carbon Dioxide BUN Creatinine Glucose POC Glucose 153 H 140 H 150 H Lactic Acid Calcium Phosphorus Magnesium Direct Bilirubin AST ALT Alkaline Phosphatase Lactate Dehydrogenase Troponin T C-Reactive Protein Total Protein Albumin Prealbumin Triglycerides Cholesterol LDL Cholesterol Direct HDL Cholesterol Urine pH Urine WBC (Auto) Urine Creatinine Urine Total Protein Fluid Total Protein Vancomycin Trough Rheumatoid Factor Complement C4 Miscellaneous Test Crossmatch 10/13/16 10/13/16 10/13/16 06:22 09:20 12:29 WBC RBC Hgb Hct MCV MCH MCHC RDW Plt Count Lymph % (Auto) [place] % (Auto) Lymph # [place] # Baso # Seg Neutrophils % Seg Neuts % (Manual) Lymphocytes % (Manual) Monocytes % (Manual) Eosinophils % (Manual) Basophils % (Manual) Nucleated RBC % Seg Neutrophils # Seg Neutrophils # Man Lymphocytes # (Manual) Monocytes # (Manual) Eosinophils # (Manual) PT INR Fibrinogen dRVVT Confirm Interp Factor V Activity POC ABG pH POC ABG pCO2 POC ABG pO2 Sodium Potassium Chloride Carbon Dioxide BUN Creatinine Glucose POC Glucose 165 H 193 H Lactic Acid Calcium Phosphorus Magnesium Direct Bilirubin AST ALT Alkaline Phosphatase Lactate Dehydrogenase Troponin T C-Reactive Protein Total Protein Albumin Prealbumin Triglycerides Cholesterol LDL Cholesterol Direct HDL Cholesterol Urine pH Urine WBC (Auto) Urine Creatinine Urine Total Protein Fluid Total Protein Vancomycin Trough Rheumatoid Factor Complement C4 Miscellaneous Test Flexitest 1 H Crossmatch 10/13/16 10/13/16 10/13/16 18:09 Unknown Unknown WBC 23.4 H RBC 2.83 L Hgb 8.7 L Hct 26.1 L MCV MCH MCHC RDW 18.1 H Plt Count Lymph % (Auto) [place] % (Auto) Lymph # [place] # Baso # Seg Neutrophils % Seg Neuts % (Manual) Lymphocytes % (Manual) Monocytes % (Manual) Eosinophils % (Manual) Basophils % (Manual) Nucleated RBC % Seg Neutrophils # Seg Neutrophils # Man Lymphocytes # (Manual) Monocytes # (Manual) Eosinophils # (Manual) PT INR Fibrinogen dRVVT Confirm Interp Factor V Activity POC ABG pH POC ABG pCO2 POC ABG pO2 Sodium Potassium Chloride 95.8 L Carbon Dioxide BUN 82 H Creatinine 2.6 H Glucose 152 H POC Glucose 166 H Lactic Acid Calcium Phosphorus Magnesium Direct Bilirubin AST ALT Alkaline Phosphatase Lactate Dehydrogenase Troponin T C-Reactive Protein Total Protein Albumin Prealbumin Triglycerides Cholesterol LDL Cholesterol Direct HDL Cholesterol Urine pH Urine WBC (Auto) Urine Creatinine Urine Total Protein Fluid Total Protein Vancomycin Trough Rheumatoid Factor Complement C4 Miscellaneous Test Crossmatch 10/14/16 10/14/16 10/14/16 05:38 06:35 08:10 WBC 20.7 H RBC 2.81 L Hgb 8.4 L Hct 27.2 L MCV MCH MCHC RDW 19.4 H Plt Count Lymph % (Auto) [place] % (Auto) Lymph # [place] # Baso # Seg Neutrophils % Seg Neuts % (Manual) Lymphocytes % (Manual) Monocytes % (Manual) Eosinophils % (Manual) Basophils % (Manual) Nucleated RBC % Seg Neutrophils # Seg Neutrophils # Man Lymphocytes # (Manual) Monocytes # (Manual) Eosinophils # (Manual) PT INR Fibrinogen dRVVT Confirm Interp Factor V Activity POC ABG pH POC ABG pCO2 POC ABG pO2 Sodium Potassium Chloride Carbon Dioxide BUN 58 H Creatinine 1.9 H Glucose 169 H POC Glucose 195 H Lactic Acid Calcium Phosphorus Magnesium Direct Bilirubin AST ALT Alkaline Phosphatase Lactate Dehydrogenase Troponin T C-Reactive Protein Total Protein Albumin Prealbumin Triglycerides Cholesterol LDL Cholesterol Direct HDL Cholesterol Urine pH Urine WBC (Auto) Urine Creatinine Urine Total Protein Fluid Total Protein Vancomycin Trough Rheumatoid Factor Complement C4 Miscellaneous Test Crossmatch 10/14/16 10/14/16 10/14/16 11:44 17:13 23:28 WBC RBC Hgb Hct MCV MCH MCHC RDW Plt Count Lymph % (Auto) [place] % (Auto) Lymph # [place] # Baso # Seg Neutrophils % Seg Neuts % (Manual) Lymphocytes % (Manual) Monocytes % (Manual) Eosinophils % (Manual) Basophils % (Manual) Nucleated RBC % Seg Neutrophils # Seg Neutrophils # Man Lymphocytes # (Manual) Monocytes # (Manual) Eosinophils # (Manual) PT INR Fibrinogen dRVVT Confirm Interp Factor V Activity POC ABG pH POC ABG pCO2 POC ABG pO2 Sodium Potassium Chloride Carbon Dioxide BUN Creatinine Glucose POC Glucose 174 H 121 H 151 H Lactic Acid Calcium Phosphorus Magnesium Direct Bilirubin AST ALT Alkaline Phosphatase Lactate Dehydrogenase Troponin T C-Reactive Protein Total Protein Albumin Prealbumin Triglycerides Cholesterol LDL Cholesterol Direct HDL Cholesterol Urine pH Urine WBC (Auto) Urine Creatinine Urine Total Protein Fluid Total Protein Vancomycin Trough Rheumatoid Factor Complement C4 Miscellaneous Test Crossmatch 10/15/16 10/15/16 10/15/16 05:06 12:26 17:48 WBC RBC Hgb Hct MCV MCH MCHC RDW Plt Count Lymph % (Auto) [place] % (Auto) Lymph # [place] # Baso # Seg Neutrophils % Seg Neuts % (Manual) Lymphocytes % (Manual) Monocytes % (Manual) Eosinophils % (Manual) Basophils % (Manual) Nucleated RBC % Seg Neutrophils # Seg Neutrophils # Man Lymphocytes # (Manual) Monocytes # (Manual) Eosinophils # (Manual) PT INR Fibrinogen dRVVT Confirm Interp Factor V Activity POC ABG pH POC ABG pCO2 POC ABG pO2 Sodium Potassium Chloride Carbon Dioxide BUN Creatinine Glucose POC Glucose 151 H 149 H 153 H Lactic Acid Calcium Phosphorus Magnesium Direct Bilirubin AST ALT Alkaline Phosphatase Lactate Dehydrogenase Troponin T C-Reactive Protein Total Protein Albumin Prealbumin Triglycerides Cholesterol LDL Cholesterol Direct HDL Cholesterol Urine pH Urine WBC (Auto) Urine Creatinine Urine Total Protein Fluid Total Protein Vancomycin Trough Rheumatoid Factor Complement C4 Miscellaneous Test Crossmatch 10/15/16 10/15/16 10/16/16 Unknown Unknown 00:02 WBC 23.4 H RBC 2.78 L Hgb 8.5 L Hct 25.7 L MCV MCH MCHC RDW 18.7 H Plt Count Lymph % (Auto) [place] % (Auto) Lymph # [place] # Baso # Seg Neutrophils % Seg Neuts % (Manual) Lymphocytes % (Manual) Monocytes % (Manual) Eosinophils % (Manual) Basophils % (Manual) Nucleated RBC % Seg Neutrophils # Seg Neutrophils # Man Lymphocytes # (Manual) Monocytes # (Manual) Eosinophils # (Manual) PT INR Fibrinogen dRVVT Confirm Interp Factor V Activity POC ABG pH POC ABG pCO2 POC ABG pO2 Sodium Potassium Chloride Carbon Dioxide BUN 73 H Creatinine 2.3 H Glucose 120 H POC Glucose 137 H Lactic Acid Calcium Phosphorus Magnesium Direct Bilirubin AST ALT Alkaline Phosphatase Lactate Dehydrogenase Troponin T C-Reactive Protein Total Protein Albumin Prealbumin Triglycerides Cholesterol LDL Cholesterol Direct HDL Cholesterol Urine pH Urine WBC (Auto) Urine Creatinine Urine Total Protein Fluid Total Protein Vancomycin Trough Rheumatoid Factor Complement C4 Miscellaneous Test Crossmatch 10/16/16 10/16/16 10/16/16 05:44 06:25 06:25 WBC 22.5 H RBC 2.76 L Hgb 8.3 L Hct 25.2 L MCV MCH MCHC RDW 18.3 H Plt Count Lymph % (Auto) [place] % (Auto) Lymph # [place] # Baso # Seg Neutrophils % Seg Neuts % (Manual) Lymphocytes % (Manual) Monocytes % (Manual) Eosinophils % (Manual) Basophils % (Manual) Nucleated RBC % Seg Neutrophils # Seg Neutrophils # Man Lymphocytes # (Manual) Monocytes # (Manual) Eosinophils # (Manual) PT INR Fibrinogen dRVVT Confirm Interp Factor V Activity POC ABG pH POC ABG pCO2 POC ABG pO2 Sodium Potassium Chloride Carbon Dioxide BUN 92 H Creatinine 3.0 H Glucose 138 H POC Glucose 110 H Lactic Acid Calcium Phosphorus Magnesium Direct Bilirubin AST ALT Alkaline Phosphatase Lactate Dehydrogenase Troponin T C-Reactive Protein Total Protein Albumin Prealbumin Triglycerides Cholesterol LDL Cholesterol Direct HDL Cholesterol Urine pH Urine WBC (Auto) Urine Creatinine Urine Total Protein Fluid Total Protein Vancomycin Trough Rheumatoid Factor Complement C4 Miscellaneous Test Crossmatch 10/16/16 10/16/16 10/16/16 11:27 11:48 17:36 WBC RBC Hgb Hct MCV MCH MCHC RDW Plt Count Lymph % (Auto) [place] % (Auto) Lymph # [place] # Baso # Seg Neutrophils % Seg Neuts % (Manual) Lymphocytes % (Manual) Monocytes % (Manual) Eosinophils % (Manual) Basophils % (Manual) Nucleated RBC % Seg Neutrophils # Seg Neutrophils # Man Lymphocytes # (Manual) Monocytes # (Manual) Eosinophils # (Manual) PT INR Fibrinogen dRVVT Confirm Interp Factor V Activity POC ABG pH 7.582 H POC ABG pCO2 27.4 L POC ABG pO2 110 H Sodium Potassium Chloride Carbon Dioxide BUN Creatinine Glucose POC Glucose 121 H 133 H Lactic Acid Calcium Phosphorus Magnesium Direct Bilirubin AST ALT Alkaline Phosphatase Lactate Dehydrogenase Troponin T C-Reactive Protein Total Protein Albumin Prealbumin Triglycerides Cholesterol LDL Cholesterol Direct HDL Cholesterol Urine pH Urine WBC (Auto) Urine Creatinine Urine Total Protein Fluid Total Protein Vancomycin Trough Rheumatoid Factor Complement C4 Miscellaneous Test Crossmatch 10/16/16 10/17/16 10/17/16 20:48 04:24 04:24 WBC 21.4 H RBC 2.72 L Hgb 8.0 L Hct 25.2 L MCV MCH MCHC RDW 18.0 H Plt Count Lymph % (Auto) [place] % (Auto) Lymph # [place] # Baso # Seg Neutrophils % Seg Neuts % (Manual) Lymphocytes % (Manual) Monocytes % (Manual) Eosinophils % (Manual) Basophils % (Manual) Nucleated RBC % Seg Neutrophils # Seg Neutrophils # Man Lymphocytes # (Manual) Monocytes # (Manual) Eosinophils # (Manual) PT INR Fibrinogen dRVVT Confirm Interp Factor V Activity POC ABG pH 7.561 H POC ABG pCO2 24.4 L POC ABG pO2 77 L Sodium 148 H Potassium Chloride Carbon Dioxide BUN 104 H Creatinine 3.0 H Glucose 149 H POC Glucose Lactic Acid Calcium Phosphorus Magnesium Direct Bilirubin AST ALT Alkaline Phosphatase 138 H Lactate Dehydrogenase Troponin T C-Reactive Protein Total Protein 6.2 L Albumin 1.5 L Prealbumin Triglycerides Cholesterol LDL Cholesterol Direct HDL Cholesterol Urine pH Urine WBC (Auto) Urine Creatinine Urine Total Protein Fluid Total Protein Vancomycin Trough Rheumatoid Factor Complement C4 Miscellaneous Test Crossmatch 10/17/16 10/17/16 10/17/16 06:02 12:17 17:14 WBC RBC Hgb Hct MCV MCH MCHC RDW Plt Count Lymph % (Auto) [place] % (Auto) Lymph # [place] # Baso # Seg Neutrophils % Seg Neuts % (Manual) Lymphocytes % (Manual) Monocytes % (Manual) Eosinophils % (Manual) Basophils % (Manual) Nucleated RBC % Seg Neutrophils # Seg Neutrophils # Man Lymphocytes # (Manual) Monocytes # (Manual) Eosinophils # (Manual) PT INR Fibrinogen dRVVT Confirm Interp Factor V Activity POC ABG pH POC ABG pCO2 POC ABG pO2 Sodium Potassium Chloride Carbon Dioxide BUN Creatinine Glucose POC Glucose 170 H 167 H 126 H Lactic Acid Calcium Phosphorus Magnesium Direct Bilirubin AST ALT Alkaline Phosphatase Lactate Dehydrogenase Troponin T C-Reactive Protein Total Protein Albumin Prealbumin Triglycerides Cholesterol LDL Cholesterol Direct HDL Cholesterol Urine pH Urine WBC (Auto) Urine Creatinine Urine Total Protein Fluid Total Protein Vancomycin Trough Rheumatoid Factor Complement C4 Miscellaneous Test Crossmatch 10/17/16 10/18/16 10/18/16 23:17 04:00 04:00 WBC 20.7 H RBC 2.47 L Hgb 7.4 L Hct 22.9 L MCV MCH MCHC RDW 17.5 H Plt Count Lymph % (Auto) [place] % (Auto) Lymph # [place] # Baso # Seg Neutrophils % Seg Neuts % (Manual) Lymphocytes % (Manual) Monocytes % (Manual) Eosinophils % (Manual) Basophils % (Manual) Nucleated RBC % Seg Neutrophils # Seg Neutrophils # Man Lymphocytes # (Manual) Monocytes # (Manual) Eosinophils # (Manual) PT INR Fibrinogen dRVVT Confirm Interp Factor V Activity POC ABG pH POC ABG pCO2 POC ABG pO2 Sodium 149 H Potassium Chloride 107.9 H Carbon Dioxide 20 L BUN 117 H Creatinine 3.2 H Glucose 119 H POC Glucose 121 H Lactic Acid Calcium Phosphorus Magnesium Direct Bilirubin AST ALT Alkaline Phosphatase Lactate Dehydrogenase Troponin T C-Reactive Protein Total Protein Albumin Prealbumin Triglycerides Cholesterol LDL Cholesterol Direct HDL Cholesterol Urine pH Urine WBC (Auto) Urine Creatinine Urine Total Protein Fluid Total Protein Vancomycin Trough Rheumatoid Factor Complement C4 Miscellaneous Test Crossmatch 10/18/16 10/18/16 10/18/16 05:23 10:46 17:30 WBC RBC Hgb Hct MCV MCH MCHC RDW Plt Count Lymph % (Auto) [place] % (Auto) Lymph # [place] # Baso # Seg Neutrophils % Seg Neuts % (Manual) Lymphocytes % (Manual) Monocytes % (Manual) Eosinophils % (Manual) Basophils % (Manual) Nucleated RBC % Seg Neutrophils # Seg Neutrophils # Man Lymphocytes # (Manual) Monocytes # (Manual) Eosinophils # (Manual) PT INR Fibrinogen dRVVT Confirm Interp Factor V Activity POC ABG pH POC ABG pCO2 POC ABG pO2 Sodium Potassium Chloride Carbon Dioxide BUN Creatinine Glucose POC Glucose 119 H 155 H 124 H Lactic Acid Calcium Phosphorus Magnesium Direct Bilirubin AST ALT Alkaline Phosphatase Lactate Dehydrogenase Troponin T C-Reactive Protein Total Protein Albumin Prealbumin Triglycerides Cholesterol LDL Cholesterol Direct HDL Cholesterol Urine pH Urine WBC (Auto) Urine Creatinine Urine Total Protein Fluid Total Protein Vancomycin Trough Rheumatoid Factor Complement C4 Miscellaneous Test Crossmatch 10/19/16 10/19/16 10/19/16 04:00 04:00 05:25 WBC 17.4 H RBC 2.54 L Hgb 7.7 L Hct 23.6 L MCV MCH MCHC RDW 17.3 H Plt Count Lymph % (Auto) [place] % (Auto) Lymph # [place] # Baso # Seg Neutrophils % Seg Neuts % (Manual) Lymphocytes % (Manual) Monocytes % (Manual) Eosinophils % (Manual) Basophils % (Manual) Nucleated RBC % Seg Neutrophils # Seg Neutrophils # Man Lymphocytes # (Manual) Monocytes # (Manual) Eosinophils # (Manual) PT INR Fibrinogen dRVVT Confirm Interp Factor V Activity POC ABG pH POC ABG pCO2 POC ABG pO2 Sodium Potassium Chloride Carbon Dioxide BUN 72 H Creatinine 2.1 H Glucose 116 H POC Glucose 119 H Lactic Acid Calcium Phosphorus Magnesium Direct Bilirubin AST ALT Alkaline Phosphatase Lactate Dehydrogenase Troponin T C-Reactive Protein Total Protein Albumin Prealbumin Triglycerides Cholesterol LDL Cholesterol Direct HDL Cholesterol Urine pH Urine WBC (Auto) Urine Creatinine Urine Total Protein Fluid Total Protein Vancomycin Trough Rheumatoid Factor Complement C4 Miscellaneous Test Crossmatch 10/19/16 10/19/16 10/20/16 11:46 23:59 06:00 WBC RBC Hgb Hct MCV MCH MCHC RDW Plt Count Lymph % (Auto) [place] % (Auto) Lymph # [place] # Baso # Seg Neutrophils % Seg Neuts % (Manual) Lymphocytes % (Manual) Monocytes % (Manual) Eosinophils % (Manual) Basophils % (Manual) Nucleated RBC % Seg Neutrophils # Seg Neutrophils # Man Lymphocytes # (Manual) Monocytes # (Manual) Eosinophils # (Manual) PT INR Fibrinogen dRVVT Confirm Interp Factor V Activity POC ABG pH POC ABG pCO2 POC ABG pO2 Sodium Potassium Chloride Carbon Dioxide 17 L BUN 94 H Creatinine 2.7 H Glucose POC Glucose 116 H 117 H Lactic Acid Calcium Phosphorus Magnesium Direct Bilirubin AST ALT Alkaline Phosphatase Lactate Dehydrogenase Troponin T C-Reactive Protein Total Protein Albumin Prealbumin Triglycerides Cholesterol LDL Cholesterol Direct HDL Cholesterol Urine pH Urine WBC (Auto) Urine Creatinine Urine Total Protein Fluid Total Protein Vancomycin Trough Rheumatoid Factor Complement C4 Miscellaneous Test Crossmatch 10/20/16 10/20/16 10/20/16 06:00 11:49 16:00 WBC 19.7 H RBC 2.51 L Hgb 7.7 L Hct 23.5 L MCV MCH MCHC RDW 17.5 H Plt Count Lymph % (Auto) [place] % (Auto) Lymph # [place] # Baso # Seg Neutrophils % Seg Neuts % (Manual) Lymphocytes % (Manual) Monocytes % (Manual) Eosinophils % (Manual) Basophils % (Manual) Nucleated RBC % Seg Neutrophils # Seg Neutrophils # Man Lymphocytes # (Manual) Monocytes # (Manual) Eosinophils # (Manual) PT INR Fibrinogen dRVVT Confirm Interp Factor V Activity POC ABG pH POC ABG pCO2 POC ABG pO2 Sodium Potassium Chloride Carbon Dioxide BUN Creatinine Glucose POC Glucose 117 H Lactic Acid Calcium Phosphorus Magnesium Direct Bilirubin AST ALT Alkaline Phosphatase Lactate Dehydrogenase Troponin T C-Reactive Protein Total Protein Albumin Prealbumin Triglycerides Cholesterol LDL Cholesterol Direct HDL Cholesterol Urine pH Urine WBC (Auto) Urine Creatinine Urine Total Protein Fluid Total Protein Vancomycin Trough Rheumatoid Factor Complement C4 Miscellaneous Test Flexitest 1 H Crossmatch 10/20/16 10/20/16 10/21/16 18:36 23:39 04:00 WBC RBC Hgb Hct MCV MCH MCHC RDW Plt Count Lymph % (Auto) [place] % (Auto) Lymph # [place] # Baso # Seg Neutrophils % Seg Neuts % (Manual) Lymphocytes % (Manual) Monocytes % (Manual) Eosinophils % (Manual) Basophils % (Manual) Nucleated RBC % Seg Neutrophils # Seg Neutrophils # Man Lymphocytes # (Manual) Monocytes # (Manual) Eosinophils # (Manual) PT INR Fibrinogen dRVVT Confirm Interp Factor V Activity POC ABG pH POC ABG pCO2 POC ABG pO2 Sodium Potassium 5.4 H D Chloride Carbon Dioxide 15 L BUN 110 H Creatinine 3.0 H Glucose POC Glucose 127 H 114 H Lactic Acid Calcium Phosphorus Magnesium Direct Bilirubin AST ALT Alkaline Phosphatase Lactate Dehydrogenase Troponin T C-Reactive Protein Total Protein Albumin Prealbumin Triglycerides Cholesterol LDL Cholesterol Direct HDL Cholesterol Urine pH Urine WBC (Auto) Urine Creatinine Urine Total Protein Fluid Total Protein Vancomycin Trough Rheumatoid Factor Complement C4 Miscellaneous Test Crossmatch 10/21/16 10/21/16 10/22/16 05:54 23:46 05:18 WBC RBC Hgb Hct MCV MCH MCHC RDW Plt Count Lymph % (Auto) [place] % (Auto) Lymph # [place] # Baso # Seg Neutrophils % Seg Neuts % (Manual) Lymphocytes % (Manual) Monocytes % (Manual) Eosinophils % (Manual) Basophils % (Manual) Nucleated RBC % Seg Neutrophils # Seg Neutrophils # Man Lymphocytes # (Manual) Monocytes # (Manual) Eosinophils # (Manual) PT INR Fibrinogen dRVVT Confirm Interp Factor V Activity POC ABG pH POC ABG pCO2 POC ABG pO2 Sodium Potassium Chloride Carbon Dioxide BUN Creatinine Glucose POC Glucose 119 H 108 H 109 H Lactic Acid Calcium Phosphorus Magnesium Direct Bilirubin AST ALT Alkaline Phosphatase Lactate Dehydrogenase Troponin T C-Reactive Protein Total Protein Albumin Prealbumin Triglycerides Cholesterol LDL Cholesterol Direct HDL Cholesterol Urine pH Urine WBC (Auto) Urine Creatinine Urine Total Protein Fluid Total Protein Vancomycin Trough Rheumatoid Factor Complement C4 Miscellaneous Test Crossmatch 10/22/16 10/22/16 10/22/16 06:40 06:40 06:40 WBC 14.0 H RBC 2.03 L Hgb 7.0 L Hct 20.5 L MCV 98 H MCH 34 H MCHC 35 H RDW 17.8 H Plt Count Lymph % (Auto) [place] % (Auto) 9.9 H Lymph # [place] # 1.4 H Baso # 0.2 H Seg Neutrophils % 72.0 H Seg Neuts % (Manual) Lymphocytes % (Manual) Monocytes % (Manual) Eosinophils % (Manual) Basophils % (Manual) Nucleated RBC % Seg Neutrophils # 10.0 H Seg Neutrophils # Man Lymphocytes # (Manual) Monocytes # (Manual) Eosinophils # (Manual) PT INR Fibrinogen dRVVT Confirm Interp Factor V Activity POC ABG pH POC ABG pCO2 POC ABG pO2 Sodium 130 L D Potassium Chloride 92.4 L Carbon Dioxide 20 L BUN 50 H Creatinine 1.6 H Glucose 589 H* POC Glucose Lactic Acid Calcium 7.8 L D Phosphorus Magnesium 1.60 L Direct Bilirubin AST ALT Alkaline Phosphatase Lactate Dehydrogenase Troponin T C-Reactive Protein Total Protein Albumin Prealbumin Triglycerides Cholesterol LDL Cholesterol Direct HDL Cholesterol Urine pH Urine WBC (Auto) Urine Creatinine Urine Total Protein Fluid Total Protein Vancomycin Trough Rheumatoid Factor Complement C4 Miscellaneous Test Crossmatch 10/22/16 10/22/16 10/22/16 11:39 16:44 23:36 WBC RBC Hgb Hct MCV MCH MCHC RDW Plt Count Lymph % (Auto) [place] % (Auto) Lymph # [place] # Baso # Seg Neutrophils % Seg Neuts % (Manual) Lymphocytes % (Manual) Monocytes % (Manual) Eosinophils % (Manual) Basophils % (Manual) Nucleated RBC % Seg Neutrophils # Seg Neutrophils # Man Lymphocytes # (Manual) Monocytes # (Manual) Eosinophils # (Manual) PT INR Fibrinogen dRVVT Confirm Interp Factor V Activity POC ABG pH POC ABG pCO2 POC ABG pO2 Sodium Potassium Chloride Carbon Dioxide BUN Creatinine Glucose POC Glucose 142 H 163 H 123 H Lactic Acid Calcium Phosphorus Magnesium Direct Bilirubin AST ALT Alkaline Phosphatase Lactate Dehydrogenase Troponin T C-Reactive Protein Total Protein Albumin Prealbumin Triglycerides Cholesterol LDL Cholesterol Direct HDL Cholesterol Urine pH Urine WBC (Auto) Urine Creatinine Urine Total Protein Fluid Total Protein Vancomycin Trough Rheumatoid Factor Complement C4 Miscellaneous Test Crossmatch 10/23/16 10/23/16 10/23/16 04:58 06:00 12:12 WBC RBC Hgb Hct MCV MCH MCHC RDW Plt Count Lymph % (Auto) [place] % (Auto) Lymph # [place] # Baso # Seg Neutrophils % Seg Neuts % (Manual) Lymphocytes % (Manual) Monocytes % (Manual) Eosinophils % (Manual) Basophils % (Manual) Nucleated RBC % Seg Neutrophils # Seg Neutrophils # Man Lymphocytes # (Manual) Monocytes # (Manual) Eosinophils # (Manual) PT INR Fibrinogen dRVVT Confirm Interp Factor V Activity POC ABG pH POC ABG pCO2 POC ABG pO2 Sodium 133 L Potassium 3.5 L Chloride 96.1 L Carbon Dioxide 18 L BUN 76 H Creatinine 2.1 H Glucose POC Glucose 133 H 138 H Lactic Acid Calcium 8.3 L Phosphorus Magnesium Direct Bilirubin AST ALT Alkaline Phosphatase Lactate Dehydrogenase Troponin T C-Reactive Protein Total Protein Albumin Prealbumin Triglycerides Cholesterol LDL Cholesterol Direct HDL Cholesterol Urine pH Urine WBC (Auto) Urine Creatinine Urine Total Protein Fluid Total Protein Vancomycin Trough Rheumatoid Factor Complement C4 Miscellaneous Test Crossmatch 10/23/16 10/23/16 10/24/16 16:53 23:37 04:00 WBC RBC Hgb Hct MCV MCH MCHC RDW Plt Count Lymph % (Auto) [place] % (Auto) Lymph # [place] # Baso # Seg Neutrophils % Seg Neuts % (Manual) Lymphocytes % (Manual) Monocytes % (Manual) Eosinophils % (Manual) Basophils % (Manual) Nucleated RBC % Seg Neutrophils # Seg Neutrophils # Man Lymphocytes # (Manual) Monocytes # (Manual) Eosinophils # (Manual) PT INR Fibrinogen dRVVT Confirm Interp Factor V Activity POC ABG pH POC ABG pCO2 POC ABG pO2 Sodium 131 L Potassium Chloride 94.5 L Carbon Dioxide 19 L BUN 97 H Creatinine 2.6 H Glucose 110 H POC Glucose 125 H 123 H Lactic Acid Calcium 8.3 L Phosphorus Magnesium Direct Bilirubin AST ALT Alkaline Phosphatase Lactate Dehydrogenase Troponin T C-Reactive Protein Total Protein Albumin Prealbumin Triglycerides Cholesterol LDL Cholesterol Direct HDL Cholesterol Urine pH Urine WBC (Auto) Urine Creatinine Urine Total Protein Fluid Total Protein Vancomycin Trough Rheumatoid Factor Complement C4 Miscellaneous Test Crossmatch 10/24/16 10/24/16 10/24/16 07:49 11:39 17:52 WBC RBC Hgb 6.0 L Hct 19.7 L* MCV MCH MCHC RDW Plt Count Lymph % (Auto) [place] % (Auto) Lymph # [place] # Baso # Seg Neutrophils % Seg Neuts % (Manual) Lymphocytes % (Manual) Monocytes % (Manual) Eosinophils % (Manual) Basophils % (Manual) Nucleated RBC % Seg Neutrophils # Seg Neutrophils # Man Lymphocytes # (Manual) Monocytes # (Manual) Eosinophils # (Manual) PT INR Fibrinogen dRVVT Confirm Interp Factor V Activity POC ABG pH POC ABG pCO2 POC ABG pO2 Sodium Potassium Chloride Carbon Dioxide BUN Creatinine Glucose POC Glucose 106 H 158 H Lactic Acid Calcium Phosphorus Magnesium Direct Bilirubin AST ALT Alkaline Phosphatase Lactate Dehydrogenase Troponin T C-Reactive Protein Total Protein Albumin Prealbumin Triglycerides Cholesterol LDL Cholesterol Direct HDL Cholesterol Urine pH Urine WBC (Auto) Urine Creatinine Urine Total Protein Fluid Total Protein Vancomycin Trough Rheumatoid Factor Complement C4 Miscellaneous Test Crossmatch 10/24/16 10/24/16 10/24/16 20:00 22:27 Unknown WBC RBC Hgb 9.4 L D Hct 27.5 L D MCV MCH MCHC RDW Plt Count Lymph % (Auto) [place] % (Auto) Lymph # [place] # Baso # Seg Neutrophils % Seg Neuts % (Manual) Lymphocytes % (Manual) Monocytes % (Manual) Eosinophils % (Manual) Basophils % (Manual) Nucleated RBC % Seg Neutrophils # Seg Neutrophils # Man Lymphocytes # (Manual) Monocytes # (Manual) Eosinophils # (Manual) PT INR Fibrinogen dRVVT Confirm Interp Factor V Activity POC ABG pH POC ABG pCO2 POC ABG pO2 Sodium Potassium Chloride Carbon Dioxide BUN Creatinine Glucose POC Glucose 125 H Lactic Acid Calcium Phosphorus Magnesium Direct Bilirubin AST ALT Alkaline Phosphatase Lactate Dehydrogenase Troponin T C-Reactive Protein Total Protein Albumin Prealbumin Triglycerides Cholesterol LDL Cholesterol Direct HDL Cholesterol Urine pH Urine WBC (Auto) Urine Creatinine Urine Total Protein Fluid Total Protein Vancomycin Trough Rheumatoid Factor Complement C4 Miscellaneous Test Crossmatch See Detail 10/25/16 10/25/16 10/25/16 04:00 04:00 04:00 WBC 14.2 H RBC 2.98 L Hgb 9.0 L Hct 26.2 L MCV MCH MCHC RDW 16.6 H Plt Count Lymph % (Auto) [place] % (Auto) 10.7 H Lymph # [place] # 1.5 H Baso # Seg Neutrophils % 73.6 H Seg Neuts % (Manual) Lymphocytes % (Manual) Monocytes % (Manual) Eosinophils % (Manual) Basophils % (Manual) Nucleated RBC % Seg Neutrophils # 10.5 H Seg Neutrophils # Man Lymphocytes # (Manual) Monocytes # (Manual) Eosinophils # (Manual) PT INR Fibrinogen dRVVT Confirm Interp Factor V Activity POC ABG pH POC ABG pCO2 POC ABG pO2 Sodium 132 L Potassium Chloride 94.7 L Carbon Dioxide BUN 51 H Creatinine 1.6 H Glucose 130 H POC Glucose Lactic Acid Calcium 8.3 L Phosphorus 1.60 L D Magnesium Direct Bilirubin AST ALT Alkaline Phosphatase Lactate Dehydrogenase Troponin T C-Reactive Protein Total Protein Albumin Prealbumin Triglycerides Cholesterol LDL Cholesterol Direct HDL Cholesterol Urine pH Urine WBC (Auto) Urine Creatinine Urine Total Protein Fluid Total Protein Vancomycin Trough Rheumatoid Factor Complement C4 Miscellaneous Test Crossmatch 10/25/16 10/25/16 10/25/16 04:32 11:48 17:22 WBC RBC Hgb Hct MCV MCH MCHC RDW Plt Count Lymph % (Auto) [place] % (Auto) Lymph # [place] # Baso # Seg Neutrophils % Seg Neuts % (Manual) Lymphocytes % (Manual) Monocytes % (Manual) Eosinophils % (Manual) Basophils % (Manual) Nucleated RBC % Seg Neutrophils # Seg Neutrophils # Man Lymphocytes # (Manual) Monocytes # (Manual) Eosinophils # (Manual) PT INR Fibrinogen dRVVT Confirm Interp Factor V Activity POC ABG pH POC ABG pCO2 POC ABG pO2 Sodium Potassium Chloride Carbon Dioxide BUN Creatinine Glucose POC Glucose 124 H 171 H 120 H Lactic Acid Calcium Phosphorus Magnesium Direct Bilirubin AST ALT Alkaline Phosphatase Lactate Dehydrogenase Troponin T C-Reactive Protein Total Protein Albumin Prealbumin Triglycerides Cholesterol LDL Cholesterol Direct HDL Cholesterol Urine pH Urine WBC (Auto) Urine Creatinine Urine Total Protein Fluid Total Protein Vancomycin Trough Rheumatoid Factor Complement C4 Miscellaneous Test Crossmatch 10/26/16 10/26/16 10/26/16 04:54 07:06 07:06 WBC 16.9 H RBC 3.06 L Hgb 9.1 L Hct 26.9 L MCV MCH MCHC RDW 16.9 H Plt Count Lymph % (Auto) [place] % (Auto) Lymph # [place] # Baso # Seg Neutrophils % Seg Neuts % (Manual) 71.0 H Lymphocytes % (Manual) 5.0 L Monocytes % (Manual) 12.0 H Eosinophils % (Manual) Basophils % (Manual) Nucleated RBC % Seg Neutrophils # Seg Neutrophils # Man 12.0 H Lymphocytes # (Manual) 0.8 L Monocytes # (Manual) 2.0 H Eosinophils # (Manual) PT INR Fibrinogen dRVVT Confirm Interp Factor V Activity POC ABG pH POC ABG pCO2 POC ABG pO2 Sodium 135 L Potassium Chloride 97.1 L Carbon Dioxide BUN 73 H Creatinine 2.2 H Glucose 117 H POC Glucose 123 H Lactic Acid Calcium Phosphorus 1.70 L Magnesium Direct Bilirubin AST ALT Alkaline Phosphatase Lactate Dehydrogenase Troponin T C-Reactive Protein Total Protein Albumin Prealbumin Triglycerides Cholesterol LDL Cholesterol Direct HDL Cholesterol Urine pH Urine WBC (Auto) Urine Creatinine Urine Total Protein Fluid Total Protein Vancomycin Trough Rheumatoid Factor Complement C4 Miscellaneous Test Crossmatch 10/26/16 10/26/16 10/26/16 12:12 17:29 23:42 WBC RBC Hgb Hct MCV MCH MCHC RDW Plt Count Lymph % (Auto) [place] % (Auto) Lymph # [place] # Baso # Seg Neutrophils % Seg Neuts % (Manual) Lymphocytes % (Manual) Monocytes % (Manual) Eosinophils % (Manual) Basophils % (Manual) Nucleated RBC % Seg Neutrophils # Seg Neutrophils # Man Lymphocytes # (Manual) Monocytes # (Manual) Eosinophils # (Manual) PT INR Fibrinogen dRVVT Confirm Interp Factor V Activity POC ABG pH POC ABG pCO2 POC ABG pO2 Sodium Potassium Chloride Carbon Dioxide BUN Creatinine Glucose POC Glucose 126 H 161 H 118 H Lactic Acid Calcium Phosphorus Magnesium Direct Bilirubin AST ALT Alkaline Phosphatase Lactate Dehydrogenase Troponin T C-Reactive Protein Total Protein Albumin Prealbumin Triglycerides Cholesterol LDL Cholesterol Direct HDL Cholesterol Urine pH Urine WBC (Auto) Urine Creatinine Urine Total Protein Fluid Total Protein Vancomycin Trough Rheumatoid Factor Complement C4 Miscellaneous Test Crossmatch 10/27/16 10/27/16 10/27/16 05:03 06:30 06:30 WBC 13.9 H RBC 3.09 L Hgb 9.2 L Hct 27.5 L MCV MCH MCHC RDW 17.0 H Plt Count Lymph % (Auto) [place] % (Auto) Lymph # [place] # Baso # Seg Neutrophils % Seg Neuts % (Manual) 78.0 H Lymphocytes % (Manual) Monocytes % (Manual) Eosinophils % (Manual) Basophils % (Manual) Nucleated RBC % 2.0 H Seg Neutrophils # Seg Neutrophils # Man 10.8 H Lymphocytes # (Manual) Monocytes # (Manual) 1.0 H Eosinophils # (Manual) PT INR Fibrinogen dRVVT Confirm Interp Factor V Activity POC ABG pH POC ABG pCO2 POC ABG pO2 Sodium Potassium Chloride Carbon Dioxide BUN 40 H Creatinine 1.5 H Glucose 135 H POC Glucose 107 H Lactic Acid Calcium 8.3 L Phosphorus 1.30 L D Magnesium Direct Bilirubin AST ALT Alkaline Phosphatase Lactate Dehydrogenase Troponin T C-Reactive Protein Total Protein Albumin Prealbumin Triglycerides Cholesterol LDL Cholesterol Direct HDL Cholesterol Urine pH Urine WBC (Auto) Urine Creatinine Urine Total Protein Fluid Total Protein Vancomycin Trough Rheumatoid Factor Complement C4 Miscellaneous Test Crossmatch 10/27/16 10/27/16 10/27/16 13:27 18:07 23:40 WBC RBC Hgb Hct MCV MCH MCHC RDW Plt Count Lymph % (Auto) [place] % (Auto) Lymph # [place] # Baso # Seg Neutrophils % Seg Neuts % (Manual) Lymphocytes % (Manual) Monocytes % (Manual) Eosinophils % (Manual) Basophils % (Manual) Nucleated RBC % Seg Neutrophils # Seg Neutrophils # Man Lymphocytes # (Manual) Monocytes # (Manual) Eosinophils # (Manual) PT INR Fibrinogen dRVVT Confirm Interp Factor V Activity POC ABG pH POC ABG pCO2 POC ABG pO2 Sodium Potassium Chloride Carbon Dioxide BUN Creatinine Glucose POC Glucose 117 H 121 H 118 H Lactic Acid Calcium Phosphorus Magnesium Direct Bilirubin AST ALT Alkaline Phosphatase Lactate Dehydrogenase Troponin T C-Reactive Protein Total Protein Albumin Prealbumin Triglycerides Cholesterol LDL Cholesterol Direct HDL Cholesterol Urine pH Urine WBC (Auto) Urine Creatinine Urine Total Protein Fluid Total Protein Vancomycin Trough Rheumatoid Factor Complement C4 Miscellaneous Test Crossmatch 10/28/16 10/28/16 10/28/16 05:48 06:45 06:45 WBC 14.7 H RBC 3.05 L Hgb 9.0 L Hct 26.9 L MCV MCH MCHC RDW 16.8 H Plt Count Lymph % (Auto) 8.2 L [place] % (Auto) 8.4 H Lymph # [place] # 1.2 H Baso # Seg Neutrophils % 81.9 H Seg Neuts % (Manual) Lymphocytes % (Manual) Monocytes % (Manual) Eosinophils % (Manual) Basophils % (Manual) Nucleated RBC % Seg Neutrophils # 12.1 H Seg Neutrophils # Man Lymphocytes # (Manual) Monocytes # (Manual) Eosinophils # (Manual) PT INR Fibrinogen dRVVT Confirm Interp Factor V Activity POC ABG pH POC ABG pCO2 POC ABG pO2 Sodium Potassium Chloride Carbon Dioxide BUN 60 H Creatinine 1.9 H Glucose 120 H POC Glucose 114 H Lactic Acid Calcium Phosphorus Magnesium Direct Bilirubin AST ALT Alkaline Phosphatase Lactate Dehydrogenase Troponin T C-Reactive Protein Total Protein Albumin Prealbumin Triglycerides Cholesterol LDL Cholesterol Direct HDL Cholesterol Urine pH Urine WBC (Auto) Urine Creatinine Urine Total Protein Fluid Total Protein Vancomycin Trough Rheumatoid Factor Complement C4 Miscellaneous Test Crossmatch 10/28/16 10/28/16 10/29/16 17:08 23:50 05:10 WBC RBC Hgb Hct MCV MCH MCHC RDW Plt Count Lymph % (Auto) [place] % (Auto) Lymph # [place] # Baso # Seg Neutrophils % Seg Neuts % (Manual) Lymphocytes % (Manual) Monocytes % (Manual) Eosinophils % (Manual) Basophils % (Manual) Nucleated RBC % Seg Neutrophils # Seg Neutrophils # Man Lymphocytes # (Manual) Monocytes # (Manual) Eosinophils # (Manual) PT INR Fibrinogen dRVVT Confirm Interp Factor V Activity POC ABG pH POC ABG pCO2 POC ABG pO2 Sodium Potassium Chloride Carbon Dioxide BUN Creatinine Glucose POC Glucose 109 H 110 H 124 H Lactic Acid Calcium Phosphorus Magnesium Direct Bilirubin AST ALT Alkaline Phosphatase Lactate Dehydrogenase Troponin T C-Reactive Protein Total Protein Albumin Prealbumin Triglycerides Cholesterol LDL Cholesterol Direct HDL Cholesterol Urine pH Urine WBC (Auto) Urine Creatinine Urine Total Protein Fluid Total Protein Vancomycin Trough Rheumatoid Factor Complement C4 Miscellaneous Test Crossmatch 10/29/16 10/29/16 10/29/16 07:45 07:45 12:19 WBC 14.7 H RBC 3.15 L Hgb 9.3 L Hct 28.9 L MCV MCH MCHC RDW 17.0 H Plt Count Lymph % (Auto) 11.9 L [place] % (Auto) 8.6 H Lymph # [place] # 1.3 H Baso # Seg Neutrophils % 78.1 H Seg Neuts % (Manual) Lymphocytes % (Manual) Monocytes % (Manual) Eosinophils % (Manual) Basophils % (Manual) Nucleated RBC % Seg Neutrophils # 11.4 H Seg Neutrophils # Man Lymphocytes # (Manual) Monocytes # (Manual) Eosinophils # (Manual) PT INR Fibrinogen dRVVT Confirm Interp Factor V Activity POC ABG pH POC ABG pCO2 POC ABG pO2 Sodium Potassium 5.1 H Chloride Carbon Dioxide 19 L BUN 78 H Creatinine 2.2 H Glucose 116 H POC Glucose 118 H Lactic Acid Calcium Phosphorus Magnesium Direct Bilirubin AST ALT Alkaline Phosphatase Lactate Dehydrogenase Troponin T C-Reactive Protein Total Protein Albumin Prealbumin Triglycerides Cholesterol LDL Cholesterol Direct HDL Cholesterol Urine pH Urine WBC (Auto) Urine Creatinine Urine Total Protein Fluid Total Protein Vancomycin Trough Rheumatoid Factor Complement C4 Miscellaneous Test Crossmatch 10/29/16 10/30/16 10/30/16 17:49 01:52 03:28 WBC RBC Hgb Hct MCV MCH MCHC RDW Plt Count Lymph % (Auto) [place] % (Auto) Lymph # [place] # Baso # Seg Neutrophils % Seg Neuts % (Manual) Lymphocytes % (Manual) Monocytes % (Manual) Eosinophils % (Manual) Basophils % (Manual) Nucleated RBC % Seg Neutrophils # Seg Neutrophils # Man Lymphocytes # (Manual) Monocytes # (Manual) Eosinophils # (Manual) PT INR Fibrinogen dRVVT Confirm Interp Factor V Activity POC ABG pH POC ABG pCO2 POC ABG pO2 Sodium Potassium 5.4 H Chloride 97.5 L Carbon Dioxide 19 L BUN 90 H Creatinine 2.5 H Glucose POC Glucose 120 H 129 H Lactic Acid Calcium Phosphorus 5.20 H Magnesium Direct Bilirubin AST ALT Alkaline Phosphatase Lactate Dehydrogenase Troponin T C-Reactive Protein Total Protein Albumin Prealbumin Triglycerides Cholesterol LDL Cholesterol Direct HDL Cholesterol Urine pH Urine WBC (Auto) Urine Creatinine Urine Total Protein Fluid Total Protein Vancomycin Trough Rheumatoid Factor Complement C4 Miscellaneous Test Crossmatch 10/30/16 10/30/16 10/30/16 03:28 08:19 08:19 WBC 11.6 H 15.9 H RBC 2.75 L 2.82 L Hgb 7.9 L 8.3 L Hct 24.2 L 25.2 L MCV MCH MCHC RDW 16.7 H 17.2 H Plt Count Lymph % (Auto) [place] % (Auto) 9.8 H Lymph # [place] # 1.1 H Baso # Seg Neutrophils % 74.2 H Seg Neuts % (Manual) Lymphocytes % (Manual) Monocytes % (Manual) Eosinophils % (Manual) Basophils % (Manual) Nucleated RBC % Seg Neutrophils # 8.6 H Seg Neutrophils # Man Lymphocytes # (Manual) Monocytes # (Manual) Eosinophils # (Manual) PT INR Fibrinogen dRVVT Confirm Interp Factor V Activity POC ABG pH POC ABG pCO2 POC ABG pO2 Sodium Potassium 5.3 H Chloride 97.4 L Carbon Dioxide 19 L BUN 93 H Creatinine 2.6 H Glucose POC Glucose Lactic Acid Calcium Phosphorus Magnesium Direct Bilirubin AST ALT Alkaline Phosphatase Lactate Dehydrogenase Troponin T C-Reactive Protein Total Protein Albumin Prealbumin Triglycerides Cholesterol LDL Cholesterol Direct HDL Cholesterol Urine pH Urine WBC (Auto) Urine Creatinine Urine Total Protein Fluid Total Protein Vancomycin Trough Rheumatoid Factor Complement C4 Miscellaneous Test Crossmatch 10/30/16 10/30/16 10/31/16 17:11 23:56 00:40 WBC RBC Hgb Hct MCV MCH MCHC RDW Plt Count Lymph % (Auto) [place] % (Auto) Lymph # [place] # Baso # Seg Neutrophils % Seg Neuts % (Manual) Lymphocytes % (Manual) Monocytes % (Manual) Eosinophils % (Manual) Basophils % (Manual) Nucleated RBC % Seg Neutrophils # Seg Neutrophils # Man Lymphocytes # (Manual) Monocytes # (Manual) Eosinophils # (Manual) PT INR Fibrinogen dRVVT Confirm Interp Factor V Activity POC ABG pH POC ABG pCO2 POC ABG pO2 Sodium Potassium Chloride Carbon Dioxide BUN Creatinine Glucose POC Glucose 106 H 117 H 120 H Lactic Acid Calcium Phosphorus Magnesium Direct Bilirubin AST ALT Alkaline Phosphatase Lactate Dehydrogenase Troponin T C-Reactive Protein Total Protein Albumin Prealbumin Triglycerides Cholesterol LDL Cholesterol Direct HDL Cholesterol Urine pH Urine WBC (Auto) Urine Creatinine Urine Total Protein Fluid Total Protein Vancomycin Trough Rheumatoid Factor Complement C4 Miscellaneous Test Crossmatch 10/31/16 10/31/16 10/31/16 05:43 07:15 07:15 WBC 12.1 H RBC 2.63 L Hgb 7.7 L Hct 23.3 L MCV MCH MCHC RDW 16.7 H Plt Count Lymph % (Auto) 11.7 L [place] % (Auto) 7.7 H Lymph # [place] # 0.9 H Baso # Seg Neutrophils % 78.0 H Seg Neuts % (Manual) Lymphocytes % (Manual) Monocytes % (Manual) Eosinophils % (Manual) Basophils % (Manual) Nucleated RBC % Seg Neutrophils # 9.4 H Seg Neutrophils # Man Lymphocytes # (Manual) Monocytes # (Manual) Eosinophils # (Manual) PT INR Fibrinogen dRVVT Confirm Interp Factor V Activity POC ABG pH POC ABG pCO2 POC ABG pO2 Sodium Potassium Chloride 96.4 L Carbon Dioxide 21 L BUN 99 H Creatinine 2.6 H Glucose 144 H POC Glucose 125 H Lactic Acid Calcium Phosphorus 4.80 H Magnesium Direct Bilirubin AST ALT Alkaline Phosphatase Lactate Dehydrogenase Troponin T C-Reactive Protein Total Protein Albumin Prealbumin Triglycerides Cholesterol LDL Cholesterol Direct HDL Cholesterol Urine pH Urine WBC (Auto) Urine Creatinine Urine Total Protein Fluid Total Protein Vancomycin Trough Rheumatoid Factor Complement C4 Miscellaneous Test Crossmatch 10/31/16 10/31/16 11/01/16 11:46 18:34 00:20 WBC RBC Hgb Hct MCV MCH MCHC RDW Plt Count Lymph % (Auto) [place] % (Auto) Lymph # [place] # Baso # Seg Neutrophils % Seg Neuts % (Manual) Lymphocytes % (Manual) Monocytes % (Manual) Eosinophils % (Manual) Basophils % (Manual) Nucleated RBC % Seg Neutrophils # Seg Neutrophils # Man Lymphocytes # (Manual) Monocytes # (Manual) Eosinophils # (Manual) PT INR Fibrinogen dRVVT Confirm Interp Factor V Activity POC ABG pH POC ABG pCO2 POC ABG pO2 Sodium Potassium Chloride Carbon Dioxide BUN Creatinine Glucose POC Glucose 159 H 140 H 132 H Lactic Acid Calcium Phosphorus Magnesium Direct Bilirubin AST ALT Alkaline Phosphatase Lactate Dehydrogenase Troponin T C-Reactive Protein Total Protein Albumin Prealbumin Triglycerides Cholesterol LDL Cholesterol Direct HDL Cholesterol Urine pH Urine WBC (Auto) Urine Creatinine Urine Total Protein Fluid Total Protein Vancomycin Trough Rheumatoid Factor Complement C4 Miscellaneous Test Crossmatch 11/01/16 11/01/16 11/01/16 04:55 04:55 06:11 WBC 11.2 H RBC 2.68 L Hgb 7.5 L Hct 23.7 L MCV MCH MCHC RDW 16.1 H Plt Count Lymph % (Auto) [place] % (Auto) 9.8 H Lymph # [place] # 1.1 H Baso # Seg Neutrophils % 70.8 H Seg Neuts % (Manual) Lymphocytes % (Manual) Monocytes % (Manual) Eosinophils % (Manual) Basophils % (Manual) Nucleated RBC % Seg Neutrophils # 7.9 H Seg Neutrophils # Man Lymphocytes # (Manual) Monocytes # (Manual) Eosinophils # (Manual) PT INR Fibrinogen dRVVT Confirm Interp Factor V Activity POC ABG pH POC ABG pCO2 POC ABG pO2 Sodium Potassium 3.3 L D Chloride Carbon Dioxide BUN 61 H Creatinine 1.9 H Glucose 114 H POC Glucose 115 H Lactic Acid Calcium Phosphorus 1.80 L D Magnesium Direct Bilirubin AST ALT Alkaline Phosphatase Lactate Dehydrogenase Troponin T C-Reactive Protein Total Protein Albumin Prealbumin Triglycerides Cholesterol LDL Cholesterol Direct HDL Cholesterol Urine pH Urine WBC (Auto) Urine Creatinine Urine Total Protein Fluid Total Protein Vancomycin Trough Rheumatoid Factor Complement C4 Miscellaneous Test Crossmatch 11/01/16 11/01/16 11/01/16 12:29 18:23 23:58 WBC RBC Hgb Hct MCV MCH MCHC RDW Plt Count Lymph % (Auto) [place] % (Auto) Lymph # [place] # Baso # Seg Neutrophils % Seg Neuts % (Manual) Lymphocytes % (Manual) Monocytes % (Manual) Eosinophils % (Manual) Basophils % (Manual) Nucleated RBC % Seg Neutrophils # Seg Neutrophils # Man Lymphocytes # (Manual) Monocytes # (Manual) Eosinophils # (Manual) PT INR Fibrinogen dRVVT Confirm Interp Factor V Activity POC ABG pH POC ABG pCO2 POC ABG pO2 Sodium Potassium Chloride Carbon Dioxide BUN Creatinine Glucose POC Glucose 142 H 143 H 128 H Lactic Acid Calcium Phosphorus Magnesium Direct Bilirubin AST ALT Alkaline Phosphatase Lactate Dehydrogenase Troponin T C-Reactive Protein Total Protein Albumin Prealbumin Triglycerides Cholesterol LDL Cholesterol Direct HDL Cholesterol Urine pH Urine WBC (Auto) Urine Creatinine Urine Total Protein Fluid Total Protein Vancomycin Trough Rheumatoid Factor Complement C4 Miscellaneous Test Crossmatch 11/02/16 11/02/16 11/02/16 04:16 05:29 11:58 WBC RBC Hgb Hct MCV MCH MCHC RDW Plt Count Lymph % (Auto) [place] % (Auto) Lymph # [place] # Baso # Seg Neutrophils % Seg Neuts % (Manual) Lymphocytes % (Manual) Monocytes % (Manual) Eosinophils % (Manual) Basophils % (Manual) Nucleated RBC % Seg Neutrophils # Seg Neutrophils # Man Lymphocytes # (Manual) Monocytes # (Manual) Eosinophils # (Manual) PT INR Fibrinogen dRVVT Confirm Interp Factor V Activity POC ABG pH POC ABG pCO2 POC ABG pO2 Sodium Potassium 3.1 L Chloride Carbon Dioxide BUN 73 H Creatinine 2.3 H Glucose 112 H POC Glucose 135 H 149 H Lactic Acid Calcium Phosphorus Magnesium Direct Bilirubin AST ALT Alkaline Phosphatase Lactate Dehydrogenase Troponin T C-Reactive Protein Total Protein Albumin Prealbumin Triglycerides Cholesterol LDL Cholesterol Direct HDL Cholesterol Urine pH Urine WBC (Auto) Urine Creatinine Urine Total Protein Fluid Total Protein Vancomycin Trough Rheumatoid Factor Complement C4 Miscellaneous Test Crossmatch 11/02/16 11/02/16 11/03/16 17:42 22:54 06:00 WBC RBC Hgb Hct MCV MCH MCHC RDW Plt Count Lymph % (Auto) [place] % (Auto) Lymph # [place] # Baso # Seg Neutrophils % Seg Neuts % (Manual) Lymphocytes % (Manual) Monocytes % (Manual) Eosinophils % (Manual) Basophils % (Manual) Nucleated RBC % Seg Neutrophils # Seg Neutrophils # Man Lymphocytes # (Manual) Monocytes # (Manual) Eosinophils # (Manual) PT INR Fibrinogen dRVVT Confirm Interp Factor V Activity POC ABG pH POC ABG pCO2 POC ABG pO2 Sodium Potassium Chloride 96.7 L Carbon Dioxide BUN 41 H Creatinine 1.5 H Glucose 145 H POC Glucose 182 H 115 H Lactic Acid Calcium Phosphorus 1.60 L D Magnesium 1.50 L Direct Bilirubin AST ALT Alkaline Phosphatase Lactate Dehydrogenase Troponin T C-Reactive Protein Total Protein Albumin Prealbumin Triglycerides Cholesterol LDL Cholesterol Direct HDL Cholesterol Urine pH Urine WBC (Auto) Urine Creatinine Urine Total Protein Fluid Total Protein Vancomycin Trough Rheumatoid Factor Complement C4 Miscellaneous Test Crossmatch 11/03/16 11/03/16 11/03/16 11:53 17:45 23:37 WBC RBC Hgb Hct MCV MCH MCHC RDW Plt Count Lymph % (Auto) [place] % (Auto) Lymph # [place] # Baso # Seg Neutrophils % Seg Neuts % (Manual) Lymphocytes % (Manual) Monocytes % (Manual) Eosinophils % (Manual) Basophils % (Manual) Nucleated RBC % Seg Neutrophils # Seg Neutrophils # Man Lymphocytes # (Manual) Monocytes # (Manual) Eosinophils # (Manual) PT INR Fibrinogen dRVVT Confirm Interp Factor V Activity POC ABG pH POC ABG pCO2 POC ABG pO2 Sodium Potassium Chloride Carbon Dioxide BUN Creatinine Glucose POC Glucose 131 H 134 H 113 H Lactic Acid Calcium Phosphorus Magnesium Direct Bilirubin AST ALT Alkaline Phosphatase Lactate Dehydrogenase Troponin T C-Reactive Protein Total Protein Albumin Prealbumin Triglycerides Cholesterol LDL Cholesterol Direct HDL Cholesterol Urine pH Urine WBC (Auto) Urine Creatinine Urine Total Protein Fluid Total Protein Vancomycin Trough Rheumatoid Factor Complement C4 Miscellaneous Test Crossmatch 11/04/16 11/04/16 11/04/16 05:41 06:00 12:10 WBC RBC Hgb Hct MCV MCH MCHC RDW Plt Count Lymph % (Auto) [place] % (Auto) Lymph # [place] # Baso # Seg Neutrophils % Seg Neuts % (Manual) Lymphocytes % (Manual) Monocytes % (Manual) Eosinophils % (Manual) Basophils % (Manual) Nucleated RBC % Seg Neutrophils # Seg Neutrophils # Man Lymphocytes # (Manual) Monocytes # (Manual) Eosinophils # (Manual) PT INR Fibrinogen dRVVT Confirm Interp Factor V Activity POC ABG pH POC ABG pCO2 POC ABG pO2 Sodium Potassium Chloride 96.7 L Carbon Dioxide BUN 52 H Creatinine 1.9 H Glucose 126 H POC Glucose 137 H 191 H Lactic Acid Calcium Phosphorus Magnesium Direct Bilirubin AST ALT Alkaline Phosphatase Lactate Dehydrogenase Troponin T C-Reactive Protein Total Protein Albumin Prealbumin Triglycerides Cholesterol LDL Cholesterol Direct HDL Cholesterol Urine pH Urine WBC (Auto) Urine Creatinine Urine Total Protein Fluid Total Protein Vancomycin Trough Rheumatoid Factor Complement C4 Miscellaneous Test Crossmatch 11/04/16 11/05/16 11/05/16 22:57 03:10 05:10 WBC RBC Hgb Hct MCV MCH MCHC RDW Plt Count Lymph % (Auto) [place] % (Auto) Lymph # [place] # Baso # Seg Neutrophils % Seg Neuts % (Manual) Lymphocytes % (Manual) Monocytes % (Manual) Eosinophils % (Manual) Basophils % (Manual) Nucleated RBC % Seg Neutrophils # Seg Neutrophils # Man Lymphocytes # (Manual) Monocytes # (Manual) Eosinophils # (Manual) PT INR Fibrinogen dRVVT Confirm Interp Factor V Activity POC ABG pH POC ABG pCO2 POC ABG pO2 Sodium 136 L Potassium Chloride 97.2 L Carbon Dioxide BUN 32 H Creatinine 1.3 H Glucose 123 H POC Glucose 125 H 108 H Lactic Acid Calcium 7.8 L Phosphorus Magnesium Direct Bilirubin AST ALT Alkaline Phosphatase Lactate Dehydrogenase Troponin T C-Reactive Protein Total Protein Albumin Prealbumin Triglycerides Cholesterol LDL Cholesterol Direct HDL Cholesterol Urine pH Urine WBC (Auto) Urine Creatinine Urine Total Protein Fluid Total Protein Vancomycin Trough Rheumatoid Factor Complement C4 Miscellaneous Test Crossmatch 11/05/16 11/05/16 11/05/16 12:23 13:09 13:25 WBC RBC Hgb Hct MCV MCH MCHC RDW Plt Count Lymph % (Auto) [place] % (Auto) Lymph # [place] # Baso # Seg Neutrophils % Seg Neuts % (Manual) Lymphocytes % (Manual) Monocytes % (Manual) Eosinophils % (Manual) Basophils % (Manual) Nucleated RBC % Seg Neutrophils # Seg Neutrophils # Man Lymphocytes # (Manual) Monocytes # (Manual) Eosinophils # (Manual) PT INR Fibrinogen dRVVT Confirm Interp Factor V Activity POC ABG pH POC ABG pCO2 POC ABG pO2 Sodium Potassium Chloride Carbon Dioxide BUN Creatinine Glucose POC Glucose 124 H Lactic Acid Calcium Phosphorus Magnesium Direct Bilirubin AST ALT Alkaline Phosphatase Lactate Dehydrogenase Troponin T C-Reactive Protein 11.40 H Total Protein Albumin Prealbumin Triglycerides Cholesterol LDL Cholesterol Direct HDL Cholesterol Urine pH 9.0 H Urine WBC (Auto) Urine Creatinine Urine Total Protein Fluid Total Protein Vancomycin Trough Rheumatoid Factor Complement C4 Miscellaneous Test Crossmatch 11/05/16 11/05/16 11/05/16 13:25 17:54 23:42 WBC RBC Hgb Hct MCV MCH MCHC RDW Plt Count Lymph % (Auto) [place] % (Auto) Lymph # [place] # Baso # Seg Neutrophils % Seg Neuts % (Manual) Lymphocytes % (Manual) Monocytes % (Manual) Eosinophils % (Manual) Basophils % (Manual) Nucleated RBC % Seg Neutrophils # Seg Neutrophils # Man Lymphocytes # (Manual) Monocytes # (Manual) Eosinophils # (Manual) PT INR Fibrinogen dRVVT Confirm Interp Factor V Activity POC ABG pH POC ABG pCO2 POC ABG pO2 Sodium Potassium Chloride Carbon Dioxide BUN Creatinine Glucose POC Glucose 114 H 134 H Lactic Acid Calcium Phosphorus Magnesium Direct Bilirubin AST ALT Alkaline Phosphatase Lactate Dehydrogenase Troponin T C-Reactive Protein Total Protein Albumin Prealbumin Triglycerides Cholesterol LDL Cholesterol Direct HDL Cholesterol Urine pH Urine WBC (Auto) Urine Creatinine Urine Total Protein Fluid Total Protein Vancomycin Trough Rheumatoid Factor Complement C4 Miscellaneous Test Flexitest 1 H Crossmatch 11/06/16 11/06/16 11/06/16 04:56 06:25 06:25 WBC RBC 2.50 L Hgb 7.3 L Hct 22.5 L MCV MCH MCHC RDW 16.9 H Plt Count Lymph % (Auto) [place] % (Auto) 10.5 H Lymph # [place] # 1.1 H Baso # Seg Neutrophils % Seg Neuts % (Manual) Lymphocytes % (Manual) Monocytes % (Manual) Eosinophils % (Manual) Basophils % (Manual) Nucleated RBC % Seg Neutrophils # Seg Neutrophils # Man Lymphocytes # (Manual) Monocytes # (Manual) Eosinophils # (Manual) PT INR Fibrinogen dRVVT Confirm Interp Factor V Activity POC ABG pH POC ABG pCO2 POC ABG pO2 Sodium Potassium 5.1 H Chloride 95.9 L Carbon Dioxide BUN 52 H Creatinine 1.8 H Glucose 117 H POC Glucose 120 H Lactic Acid Calcium Phosphorus Magnesium Direct Bilirubin AST 103 H ALT 77 H Alkaline Phosphatase 285 H Lactate Dehydrogenase Troponin T C-Reactive Protein Total Protein 6.2 L Albumin 1.8 L Prealbumin 0.180 L Triglycerides Cholesterol LDL Cholesterol Direct HDL Cholesterol Urine pH Urine WBC (Auto) Urine Creatinine Urine Total Protein Fluid Total Protein Vancomycin Trough Rheumatoid Factor Complement C4 Miscellaneous Test Crossmatch 11/06/16 11/06/16 11/06/16 11:56 17:14 23:52 WBC RBC Hgb Hct MCV MCH MCHC RDW Plt Count Lymph % (Auto) [place] % (Auto) Lymph # [place] # Baso # Seg Neutrophils % Seg Neuts % (Manual) Lymphocytes % (Manual) Monocytes % (Manual) Eosinophils % (Manual) Basophils % (Manual) Nucleated RBC % Seg Neutrophils # Seg Neutrophils # Man Lymphocytes # (Manual) Monocytes # (Manual) Eosinophils # (Manual) PT INR Fibrinogen dRVVT Confirm Interp Factor V Activity POC ABG pH POC ABG pCO2 POC ABG pO2 Sodium Potassium Chloride Carbon Dioxide BUN Creatinine Glucose POC Glucose 141 H 125 H 130 H Lactic Acid Calcium Phosphorus Magnesium Direct Bilirubin AST ALT Alkaline Phosphatase Lactate Dehydrogenase Troponin T C-Reactive Protein Total Protein Albumin Prealbumin Triglycerides Cholesterol LDL Cholesterol Direct HDL Cholesterol Urine pH Urine WBC (Auto) Urine Creatinine Urine Total Protein Fluid Total Protein Vancomycin Trough Rheumatoid Factor Complement C4 Miscellaneous Test Crossmatch 11/07/16 11/07/16 11/07/16 06:30 06:30 09:37 WBC RBC 2.18 L Hgb 6.3 L Hct 19.7 L* MCV MCH MCHC RDW 16.8 H Plt Count Lymph % (Auto) [place] % (Auto) 10.0 H Lymph # [place] # 1.0 H Baso # Seg Neutrophils % Seg Neuts % (Manual) Lymphocytes % (Manual) Monocytes % (Manual) Eosinophils % (Manual) Basophils % (Manual) Nucleated RBC % Seg Neutrophils # Seg Neutrophils # Man Lymphocytes # (Manual) Monocytes # (Manual) Eosinophils # (Manual) PT INR Fibrinogen dRVVT Confirm Interp Factor V Activity POC ABG pH POC ABG pCO2 POC ABG pO2 Sodium 135 L Potassium Chloride 95.6 L Carbon Dioxide BUN 70 H Creatinine 2.0 H Glucose 126 H POC Glucose Lactic Acid Calcium Phosphorus Magnesium Direct Bilirubin AST ALT Alkaline Phosphatase Lactate Dehydrogenase Troponin T C-Reactive Protein Total Protein Albumin Prealbumin Triglycerides Cholesterol LDL Cholesterol Direct HDL Cholesterol Urine pH Urine WBC (Auto) Urine Creatinine Urine Total Protein Fluid Total Protein Vancomycin Trough Rheumatoid Factor Complement C4 Miscellaneous Test Crossmatch See Detail 11/07/16 11/07/16 11/07/16 12:52 18:51 21:26 WBC RBC Hgb Hct MCV MCH MCHC RDW Plt Count Lymph % (Auto) [place] % (Auto) Lymph # [place] # Baso # Seg Neutrophils % Seg Neuts % (Manual) Lymphocytes % (Manual) Monocytes % (Manual) Eosinophils % (Manual) Basophils % (Manual) Nucleated RBC % Seg Neutrophils # Seg Neutrophils # Man Lymphocytes # (Manual) Monocytes # (Manual) Eosinophils # (Manual) PT INR Fibrinogen dRVVT Confirm Interp Factor V Activity POC ABG pH 7.523 H POC ABG pCO2 34.6 L POC ABG pO2 53 L Sodium Potassium Chloride Carbon Dioxide BUN Creatinine Glucose POC Glucose 142 H 155 H Lactic Acid Calcium Phosphorus Magnesium Direct Bilirubin AST ALT Alkaline Phosphatase Lactate Dehydrogenase Troponin T C-Reactive Protein Total Protein Albumin Prealbumin Triglycerides Cholesterol LDL Cholesterol Direct HDL Cholesterol Urine pH Urine WBC (Auto) Urine Creatinine Urine Total Protein Fluid Total Protein Vancomycin Trough Rheumatoid Factor Complement C4 Miscellaneous Test Crossmatch 11/07/16 11/08/16 11/08/16 21:34 13:03 23:37 WBC RBC 2.63 L Hgb 7.7 L Hct 22.7 L MCV MCH MCHC RDW 17.0 H Plt Count Lymph % (Auto) [place] % (Auto) Lymph # [place] # Baso # Seg Neutrophils % Seg Neuts % (Manual) Lymphocytes % (Manual) Monocytes % (Manual) Eosinophils % (Manual) Basophils % (Manual) Nucleated RBC % Seg Neutrophils # Seg Neutrophils # Man Lymphocytes # (Manual) Monocytes # (Manual) Eosinophils # (Manual) PT INR Fibrinogen dRVVT Confirm Interp Factor V Activity POC ABG pH 7.478 H POC ABG pCO2 34.0 L POC ABG pO2 50 L Sodium Potassium Chloride Carbon Dioxide BUN Creatinine Glucose POC Glucose 113 H Lactic Acid Calcium Phosphorus Magnesium Direct Bilirubin AST ALT Alkaline Phosphatase Lactate Dehydrogenase Troponin T C-Reactive Protein Total Protein Albumin Prealbumin Triglycerides Cholesterol LDL Cholesterol Direct HDL Cholesterol Urine pH Urine WBC (Auto) Urine Creatinine Urine Total Protein Fluid Total Protein Vancomycin Trough Rheumatoid Factor Complement C4 Miscellaneous Test Crossmatch 11/09/16 11/09/16 11/09/16 04:35 10:15 18:21 WBC RBC 2.68 L Hgb 7.8 L Hct 23.3 L MCV MCH MCHC RDW 17.0 H Plt Count Lymph % (Auto) [place] % (Auto) 12.1 H Lymph # [place] # 1.1 H Baso # Seg Neutrophils % Seg Neuts % (Manual) Lymphocytes % (Manual) Monocytes % (Manual) Eosinophils % (Manual) Basophils % (Manual) Nucleated RBC % Seg Neutrophils # Seg Neutrophils # Man Lymphocytes # (Manual) Monocytes # (Manual) Eosinophils # (Manual) PT INR Fibrinogen dRVVT Confirm Interp Factor V Activity POC ABG pH POC ABG pCO2 POC ABG pO2 Sodium Potassium Chloride Carbon Dioxide BUN 51 H Creatinine 1.8 H Glucose POC Glucose 60 L Lactic Acid Calcium 8.3 L Phosphorus Magnesium Direct Bilirubin AST ALT Alkaline Phosphatase Lactate Dehydrogenase Troponin T C-Reactive Protein Total Protein Albumin Prealbumin Triglycerides Cholesterol LDL Cholesterol Direct HDL Cholesterol Urine pH Urine WBC (Auto) Urine Creatinine Urine Total Protein Fluid Total Protein Vancomycin Trough Rheumatoid Factor Complement C4 Miscellaneous Test Crossmatch 11/09/16 11/10/16 11/10/16 18:55 07:00 11:51 WBC RBC Hgb Hct MCV MCH MCHC RDW Plt Count Lymph % (Auto) [place] % (Auto) Lymph # [place] # Baso # Seg Neutrophils % Seg Neuts % (Manual) Lymphocytes % (Manual) Monocytes % (Manual) Eosinophils % (Manual) Basophils % (Manual) Nucleated RBC % Seg Neutrophils # Seg Neutrophils # Man Lymphocytes # (Manual) Monocytes # (Manual) Eosinophils # (Manual) PT INR Fibrinogen dRVVT Confirm Interp Factor V Activity POC ABG pH POC ABG pCO2 POC ABG pO2 Sodium Potassium 3.0 L D Chloride 97.4 L Carbon Dioxide BUN 28 H Creatinine 1.3 H Glucose POC Glucose 68 L 120 H Lactic Acid Calcium 7.8 L Phosphorus Magnesium Direct Bilirubin AST ALT Alkaline Phosphatase Lactate Dehydrogenase Troponin T C-Reactive Protein Total Protein Albumin Prealbumin Triglycerides Cholesterol LDL Cholesterol Direct HDL Cholesterol Urine pH Urine WBC (Auto) Urine Creatinine Urine Total Protein Fluid Total Protein Vancomycin Trough Rheumatoid Factor Complement C4 Miscellaneous Test Crossmatch 11/10/16 11/11/16 11/11/16 14:20 06:59 06:59 WBC RBC 2.81 L Hgb 8.1 L Hct 24.4 L MCV MCH MCHC RDW 16.4 H Plt Count Lymph % (Auto) [place] % (Auto) 10.8 H Lymph # [place] # 1.0 H Baso # Seg Neutrophils % Seg Neuts % (Manual) Lymphocytes % (Manual) Monocytes % (Manual) Eosinophils % (Manual) Basophils % (Manual) Nucleated RBC % Seg Neutrophils # Seg Neutrophils # Man Lymphocytes # (Manual) Monocytes # (Manual) Eosinophils # (Manual) PT INR Fibrinogen dRVVT Confirm Interp Factor V Activity POC ABG pH POC ABG pCO2 POC ABG pO2 Sodium Potassium Chloride Carbon Dioxide BUN Creatinine Glucose POC Glucose Lactic Acid Calcium Phosphorus Magnesium Direct Bilirubin AST ALT Alkaline Phosphatase Lactate Dehydrogenase 196 H Troponin T C-Reactive Protein Total Protein 6.1 L Albumin Prealbumin Triglycerides Cholesterol LDL Cholesterol Direct HDL Cholesterol Urine pH Urine WBC (Auto) Urine Creatinine Urine Total Protein Fluid Total Protein < 3.0 L Vancomycin Trough Rheumatoid Factor Complement C4 Miscellaneous Test Crossmatch 11/11/16 11/11/16 11/12/16 06:59 09:50 04:00 WBC RBC Hgb Hct MCV MCH MCHC RDW Plt Count Lymph % (Auto) [place] % (Auto) Lymph # [place] # Baso # Seg Neutrophils % Seg Neuts % (Manual) Lymphocytes % (Manual) Monocytes % (Manual) Eosinophils % (Manual) Basophils % (Manual) Nucleated RBC % Seg Neutrophils # Seg Neutrophils # Man Lymphocytes # (Manual) Monocytes # (Manual) Eosinophils # (Manual) PT INR 1.18 H Fibrinogen dRVVT Confirm Interp Factor V Activity POC ABG pH POC ABG pCO2 POC ABG pO2 Sodium 136 L 133 L Potassium Chloride 96.1 L 94.8 L Carbon Dioxide 21 L BUN 37 H 42 H Creatinine 1.8 H 2.0 H Glucose POC Glucose Lactic Acid Calcium Phosphorus Magnesium Direct Bilirubin AST ALT Alkaline Phosphatase Lactate Dehydrogenase Troponin T C-Reactive Protein Total Protein Albumin Prealbumin Triglycerides Cholesterol LDL Cholesterol Direct HDL Cholesterol Urine pH Urine WBC (Auto) Urine Creatinine Urine Total Protein Fluid Total Protein Vancomycin Trough Rheumatoid Factor Complement C4 Miscellaneous Test Crossmatch 11/12/16 11/12/16 11/13/16 04:00 23:55 05:53 WBC RBC Hgb 8.9 L Hct 27.2 L MCV MCH MCHC RDW Plt Count Lymph % (Auto) [place] % (Auto) Lymph # [place] # Baso # Seg Neutrophils % Seg Neuts % (Manual) Lymphocytes % (Manual) Monocytes % (Manual) Eosinophils % (Manual) Basophils % (Manual) Nucleated RBC % Seg Neutrophils # Seg Neutrophils # Man Lymphocytes # (Manual) Monocytes # (Manual) Eosinophils # (Manual) PT INR Fibrinogen dRVVT Confirm Interp Factor V Activity POC ABG pH POC ABG pCO2 POC ABG pO2 Sodium Potassium Chloride Carbon Dioxide BUN Creatinine Glucose POC Glucose 132 H 120 H Lactic Acid Calcium Phosphorus Magnesium Direct Bilirubin AST ALT Alkaline Phosphatase Lactate Dehydrogenase Troponin T C-Reactive Protein Total Protein Albumin Prealbumin Triglycerides Cholesterol LDL Cholesterol Direct HDL Cholesterol Urine pH Urine WBC (Auto) Urine Creatinine Urine Total Protein Fluid Total Protein Vancomycin Trough Rheumatoid Factor Complement C4 Miscellaneous Test Crossmatch 11/13/16 11/13/16 11/13/16 11:43 17:09 23:41 WBC RBC Hgb Hct MCV MCH MCHC RDW Plt Count Lymph % (Auto) [place] % (Auto) Lymph # [place] # Baso # Seg Neutrophils % Seg Neuts % (Manual) Lymphocytes % (Manual) Monocytes % (Manual) Eosinophils % (Manual) Basophils % (Manual) Nucleated RBC % Seg Neutrophils # Seg Neutrophils # Man Lymphocytes # (Manual) Monocytes # (Manual) Eosinophils # (Manual) PT INR Fibrinogen dRVVT Confirm Interp Factor V Activity POC ABG pH POC ABG pCO2 POC ABG pO2 Sodium Potassium Chloride Carbon Dioxide BUN Creatinine Glucose POC Glucose 114 H 113 H 108 H Lactic Acid Calcium Phosphorus Magnesium Direct Bilirubin AST ALT Alkaline Phosphatase Lactate Dehydrogenase Troponin T C-Reactive Protein Total Protein Albumin Prealbumin Triglycerides Cholesterol LDL Cholesterol Direct HDL Cholesterol Urine pH Urine WBC (Auto) Urine Creatinine Urine Total Protein Fluid Total Protein Vancomycin Trough Rheumatoid Factor Complement C4 Miscellaneous Test Crossmatch 11/13/16 11/15/16 11/15/16 Unknown 00:37 03:30 WBC 11.2 H RBC 2.72 L Hgb 7.6 L Hct 23.4 L MCV MCH MCHC RDW 16.5 H Plt Count Lymph % (Auto) [place] % (Auto) Lymph # [place] # Baso # Seg Neutrophils % Seg Neuts % (Manual) Lymphocytes % (Manual) Monocytes % (Manual) Eosinophils % (Manual) Basophils % (Manual) Nucleated RBC % Seg Neutrophils # Seg Neutrophils # Man Lymphocytes # (Manual) Monocytes # (Manual) Eosinophils # (Manual) PT INR Fibrinogen dRVVT Confirm Interp Factor V Activity POC ABG pH POC ABG pCO2 POC ABG pO2 Sodium 135 L Potassium Chloride 95.2 L Carbon Dioxide BUN 52 H Creatinine 2.2 H Glucose POC Glucose 108 H Lactic Acid Calcium Phosphorus Magnesium Direct Bilirubin AST ALT Alkaline Phosphatase Lactate Dehydrogenase Troponin T C-Reactive Protein Total Protein Albumin Prealbumin Triglycerides Cholesterol LDL Cholesterol Direct HDL Cholesterol Urine pH Urine WBC (Auto) Urine Creatinine Urine Total Protein Fluid Total Protein Vancomycin Trough Rheumatoid Factor Complement C4 Miscellaneous Test Crossmatch 11/15/16 11/15/16 11/15/16 03:30 05:04 11:50 WBC RBC Hgb Hct MCV MCH MCHC RDW Plt Count Lymph % (Auto) [place] % (Auto) Lymph # [place] # Baso # Seg Neutrophils % Seg Neuts % (Manual) Lymphocytes % (Manual) Monocytes % (Manual) Eosinophils % (Manual) Basophils % (Manual) Nucleated RBC % Seg Neutrophils # Seg Neutrophils # Man Lymphocytes # (Manual) Monocytes # (Manual) Eosinophils # (Manual) PT INR Fibrinogen dRVVT Confirm Interp Factor V Activity POC ABG pH POC ABG pCO2 POC ABG pO2 Sodium Potassium 3.4 L Chloride Carbon Dioxide BUN 25 H Creatinine 1.5 H Glucose 103 H POC Glucose 121 H 144 H Lactic Acid Calcium Phosphorus Magnesium Direct Bilirubin AST ALT Alkaline Phosphatase Lactate Dehydrogenase Troponin T C-Reactive Protein Total Protein Albumin Prealbumin Triglycerides Cholesterol LDL Cholesterol Direct HDL Cholesterol Urine pH Urine WBC (Auto) Urine Creatinine Urine Total Protein Fluid Total Protein Vancomycin Trough Rheumatoid Factor Complement C4 Miscellaneous Test Crossmatch 11/15/16 11/15/16 11/16/16 21:28 23:20 11:44 WBC RBC Hgb Hct MCV MCH MCHC RDW Plt Count Lymph % (Auto) [place] % (Auto) Lymph # [place] # Baso # Seg Neutrophils % Seg Neuts % (Manual) Lymphocytes % (Manual) Monocytes % (Manual) Eosinophils % (Manual) Basophils % (Manual) Nucleated RBC % Seg Neutrophils # Seg Neutrophils # Man Lymphocytes # (Manual) Monocytes # (Manual) Eosinophils # (Manual) PT INR Fibrinogen dRVVT Confirm Interp Factor V Activity POC ABG pH 7.462 H POC ABG pCO2 POC ABG pO2 71 L Sodium Potassium Chloride Carbon Dioxide BUN Creatinine Glucose POC Glucose 116 H 133 H Lactic Acid Calcium Phosphorus Magnesium Direct Bilirubin AST ALT Alkaline Phosphatase Lactate Dehydrogenase Troponin T C-Reactive Protein Total Protein Albumin Prealbumin Triglycerides Cholesterol LDL Cholesterol Direct HDL Cholesterol Urine pH Urine WBC (Auto) Urine Creatinine Urine Total Protein Fluid Total Protein Vancomycin Trough Rheumatoid Factor Complement C4 Miscellaneous Test Crossmatch 11/16/16 11/16/16 11/16/16 12:20 17:05 23:35 WBC 11.7 H RBC 2.73 L Hgb 7.6 L Hct 23.7 L MCV MCH MCHC RDW 16.6 H Plt Count Lymph % (Auto) [place] % (Auto) Lymph # [place] # Baso # Seg Neutrophils % Seg Neuts % (Manual) Lymphocytes % (Manual) Monocytes % (Manual) Eosinophils % (Manual) Basophils % (Manual) Nucleated RBC % Seg Neutrophils # Seg Neutrophils # Man Lymphocytes # (Manual) Monocytes # (Manual) Eosinophils # (Manual) PT INR Fibrinogen dRVVT Confirm Interp Factor V Activity POC ABG pH POC ABG pCO2 POC ABG pO2 Sodium Potassium Chloride Carbon Dioxide BUN Creatinine Glucose POC Glucose 154 H 125 H Lactic Acid Calcium Phosphorus Magnesium Direct Bilirubin AST ALT Alkaline Phosphatase Lactate Dehydrogenase Troponin T C-Reactive Protein Total Protein Albumin Prealbumin Triglycerides Cholesterol LDL Cholesterol Direct HDL Cholesterol Urine pH Urine WBC (Auto) Urine Creatinine Urine Total Protein Fluid Total Protein Vancomycin Trough Rheumatoid Factor Complement C4 Miscellaneous Test Crossmatch 11/17/16 11/17/16 11/17/16 03:20 03:20 03:20 WBC RBC 2.55 L Hgb 7.3 L Hct 21.9 L MCV MCH MCHC RDW 16.6 H Plt Count Lymph % (Auto) [place] % (Auto) 11.5 H Lymph # [place] # 1.1 H Baso # Seg Neutrophils % Seg Neuts % (Manual) Lymphocytes % (Manual) Monocytes % (Manual) Eosinophils % (Manual) Basophils % (Manual) Nucleated RBC % Seg Neutrophils # Seg Neutrophils # Man Lymphocytes # (Manual) Monocytes # (Manual) Eosinophils # (Manual) PT 16.8 H INR 1.37 H Fibrinogen dRVVT Confirm Interp Factor V Activity POC ABG pH POC ABG pCO2 POC ABG pO2 Sodium Potassium 3.5 L Chloride Carbon Dioxide BUN 21 H Creatinine Glucose POC Glucose Lactic Acid Calcium 7.9 L Phosphorus Magnesium Direct Bilirubin AST ALT Alkaline Phosphatase Lactate Dehydrogenase Troponin T C-Reactive Protein Total Protein Albumin Prealbumin Triglycerides Cholesterol LDL Cholesterol Direct HDL Cholesterol Urine pH Urine WBC (Auto) Urine Creatinine Urine Total Protein Fluid Total Protein Vancomycin Trough Rheumatoid Factor Complement C4 Miscellaneous Test Crossmatch 11/17/16 11/17/16 11/17/16 06:34 11:21 21:22 WBC RBC Hgb Hct MCV MCH MCHC RDW Plt Count Lymph % (Auto) [place] % (Auto) Lymph # [place] # Baso # Seg Neutrophils % Seg Neuts % (Manual) Lymphocytes % (Manual) Monocytes % (Manual) Eosinophils % (Manual) Basophils % (Manual) Nucleated RBC % Seg Neutrophils # Seg Neutrophils # Man Lymphocytes # (Manual) Monocytes # (Manual) Eosinophils # (Manual) PT INR Fibrinogen dRVVT Confirm Interp Factor V Activity POC ABG pH 7.467 H POC ABG pCO2 POC ABG pO2 73 L Sodium Potassium Chloride Carbon Dioxide BUN Creatinine Glucose POC Glucose 121 H 119 H Lactic Acid Calcium Phosphorus Magnesium Direct Bilirubin AST ALT Alkaline Phosphatase Lactate Dehydrogenase Troponin T C-Reactive Protein Total Protein Albumin Prealbumin Triglycerides Cholesterol LDL Cholesterol Direct HDL Cholesterol Urine pH Urine WBC (Auto) Urine Creatinine Urine Total Protein Fluid Total Protein Vancomycin Trough Rheumatoid Factor Complement C4 Miscellaneous Test Crossmatch 11/18/16 11/18/16 11/19/16 12:16 17:19 00:00 WBC RBC Hgb Hct MCV MCH MCHC RDW Plt Count Lymph % (Auto) [place] % (Auto) Lymph # [place] # Baso # Seg Neutrophils % Seg Neuts % (Manual) Lymphocytes % (Manual) Monocytes % (Manual) Eosinophils % (Manual) Basophils % (Manual) Nucleated RBC % Seg Neutrophils # Seg Neutrophils # Man Lymphocytes # (Manual) Monocytes # (Manual) Eosinophils # (Manual) PT INR Fibrinogen dRVVT Confirm Interp Factor V Activity POC ABG pH POC ABG pCO2 POC ABG pO2 Sodium Potassium Chloride Carbon Dioxide BUN Creatinine Glucose POC Glucose 124 H 162 H 139 H Lactic Acid Calcium Phosphorus Magnesium Direct Bilirubin AST ALT Alkaline Phosphatase Lactate Dehydrogenase Troponin T C-Reactive Protein Total Protein Albumin Prealbumin Triglycerides Cholesterol LDL Cholesterol Direct HDL Cholesterol Urine pH Urine WBC (Auto) Urine Creatinine Urine Total Protein Fluid Total Protein Vancomycin Trough Rheumatoid Factor Complement C4 Miscellaneous Test Crossmatch 11/19/16 11/19/16 11/20/16 05:00 12:43 00:40 WBC RBC Hgb Hct MCV MCH MCHC RDW Plt Count Lymph % (Auto) [place] % (Auto) Lymph # [place] # Baso # Seg Neutrophils % Seg Neuts % (Manual) Lymphocytes % (Manual) Monocytes % (Manual) Eosinophils % (Manual) Basophils % (Manual) Nucleated RBC % Seg Neutrophils # Seg Neutrophils # Man Lymphocytes # (Manual) Monocytes # (Manual) Eosinophils # (Manual) PT INR Fibrinogen dRVVT Confirm Interp Factor V Activity POC ABG pH POC ABG pCO2 POC ABG pO2 Sodium Potassium Chloride Carbon Dioxide BUN Creatinine Glucose POC Glucose 110 H 125 H 136 H Lactic Acid Calcium Phosphorus Magnesium Direct Bilirubin AST ALT Alkaline Phosphatase Lactate Dehydrogenase Troponin T C-Reactive Protein Total Protein Albumin Prealbumin Triglycerides Cholesterol LDL Cholesterol Direct HDL Cholesterol Urine pH Urine WBC (Auto) Urine Creatinine Urine Total Protein Fluid Total Protein Vancomycin Trough Rheumatoid Factor Complement C4 Miscellaneous Test Crossmatch 11/20/16 11/20/16 11/20/16 05:00 05:00 05:51 WBC 13.1 H RBC 2.74 L Hgb 7.7 L Hct 23.6 L MCV MCH MCHC RDW 16.9 H Plt Count Lymph % (Auto) [place] % (Auto) 10.8 H Lymph # [place] # 1.4 H Baso # Seg Neutrophils % Seg Neuts % (Manual) Lymphocytes % (Manual) Monocytes % (Manual) Eosinophils % (Manual) Basophils % (Manual) Nucleated RBC % Seg Neutrophils # 7.9 H Seg Neutrophils # Man Lymphocytes # (Manual) Monocytes # (Manual) Eosinophils # (Manual) PT INR Fibrinogen dRVVT Confirm Interp Factor V Activity POC ABG pH POC ABG pCO2 POC ABG pO2 Sodium Potassium Chloride Carbon Dioxide BUN 31 H Creatinine 1.8 H Glucose 129 H POC Glucose 133 H Lactic Acid Calcium Phosphorus Magnesium Direct Bilirubin AST ALT Alkaline Phosphatase Lactate Dehydrogenase Troponin T C-Reactive Protein Total Protein Albumin Prealbumin Triglycerides Cholesterol LDL Cholesterol Direct HDL Cholesterol Urine pH Urine WBC (Auto) Urine Creatinine Urine Total Protein Fluid Total Protein Vancomycin Trough Rheumatoid Factor Complement C4 Miscellaneous Test Crossmatch 11/20/16 11/20/16 11/21/16 12:40 18:10 01:20 WBC RBC Hgb Hct MCV MCH MCHC RDW Plt Count Lymph % (Auto) [place] % (Auto) Lymph # [place] # Baso # Seg Neutrophils % Seg Neuts % (Manual) Lymphocytes % (Manual) Monocytes % (Manual) Eosinophils % (Manual) Basophils % (Manual) Nucleated RBC % Seg Neutrophils # Seg Neutrophils # Man Lymphocytes # (Manual) Monocytes # (Manual) Eosinophils # (Manual) PT INR Fibrinogen dRVVT Confirm Interp Factor V Activity POC ABG pH POC ABG pCO2 POC ABG pO2 Sodium Potassium Chloride Carbon Dioxide BUN Creatinine Glucose POC Glucose 134 H 138 H 136 H Lactic Acid Calcium Phosphorus Magnesium Direct Bilirubin AST ALT Alkaline Phosphatase Lactate Dehydrogenase Troponin T C-Reactive Protein Total Protein Albumin Prealbumin Triglycerides Cholesterol LDL Cholesterol Direct HDL Cholesterol Urine pH Urine WBC (Auto) Urine Creatinine Urine Total Protein Fluid Total Protein Vancomycin Trough Rheumatoid Factor Complement C4 Miscellaneous Test Crossmatch 11/21/16 11/21/16 11/21/16 07:04 07:45 07:45 WBC 22.0 H RBC 2.91 L Hgb 8.2 L Hct 25.4 L MCV MCH MCHC RDW 17.1 H Plt Count Lymph % (Auto) [place] % (Auto) Lymph # [place] # Baso # Seg Neutrophils % Seg Neuts % (Manual) Lymphocytes % (Manual) Monocytes % (Manual) Eosinophils % (Manual) Basophils % (Manual) Nucleated RBC % Seg Neutrophils # Seg Neutrophils # Man Lymphocytes # (Manual) Monocytes # (Manual) Eosinophils # (Manual) PT INR Fibrinogen dRVVT Confirm Interp Factor V Activity POC ABG pH POC ABG pCO2 POC ABG pO2 Sodium Potassium Chloride Carbon Dioxide BUN 42 H Creatinine 2.0 H Glucose POC Glucose 108 H Lactic Acid Calcium Phosphorus Magnesium Direct Bilirubin AST ALT Alkaline Phosphatase Lactate Dehydrogenase Troponin T C-Reactive Protein Total Protein Albumin Prealbumin Triglycerides Cholesterol LDL Cholesterol Direct HDL Cholesterol Urine pH Urine WBC (Auto) Urine Creatinine Urine Total Protein Fluid Total Protein Vancomycin Trough Rheumatoid Factor Complement C4 Miscellaneous Test Crossmatch 11/21/16 08:38 WBC RBC Hgb Hct MCV MCH MCHC RDW Plt Count Lymph % (Auto) [place] % (Auto) Lymph # [place] # Baso # Seg Neutrophils % Seg Neuts % (Manual) Lymphocytes % (Manual) Monocytes % (Manual) Eosinophils % (Manual) Basophils % (Manual) Nucleated RBC % Seg Neutrophils # Seg Neutrophils # Man Lymphocytes # (Manual) Monocytes # (Manual) Eosinophils # (Manual) PT INR Fibrinogen dRVVT Confirm Interp Factor V Activity POC ABG pH POC ABG pCO2 POC ABG pO2 Sodium Potassium Chloride Carbon Dioxide BUN Creatinine Glucose POC Glucose 195 H Lactic Acid Calcium Phosphorus Magnesium Direct Bilirubin AST ALT Alkaline Phosphatase Lactate Dehydrogenase Troponin T C-Reactive Protein Total Protein Albumin Prealbumin Triglycerides Cholesterol LDL Cholesterol Direct HDL Cholesterol Urine pH Urine WBC (Auto) Urine Creatinine Urine Total Protein Fluid Total Protein Vancomycin Trough Rheumatoid Factor Complement C4 Miscellaneous Test Crossmatch Allied health notes reviewed: RT
[2016-11-21] MEDS ORDERED: NACL 0.9% 500 ML 500 ML IV ONE (10:44)
--- NOTE | 2016-11-21 10:49 | XRay Report ---
Single view abdomen: History: Dobbhoff placement. Findings: Tip of Dobbhoff feeding tube is noted in the fundus of the stomach. Impression: Tip of Dobbhoff feeding tube is noted fundus of the stomach approximately 3 cm distal to the GE junction.
[2016-11-21 10:52] LABS: Band Neutrophils # (Manual) 4.4 K/mm3; Basophils % (Manual) 0 % (0.0-1.8); Eosinophils % (Manual) 0 % (0.0-4.3); Total Cells Counted 100
[2016-11-21] MEDS ORDERED: LEVOPHED 8 MG in NACL 0.9% 250ML 242 ML IV SCH (11:00)
[2016-11-21] MEDS ORDERED: KEPPRA 1,000 MG in D5W 100 ML IV ONE (11:00)
--- NOTE | 2016-11-21 11:04 | Progress Note ---
Assessment and Plan CT Scan abd/pelvis with oral contrast only in light of increased WBC and arrest. Need to rule out an intraabdominal source. Hold tube feeds until results of the CT Scan are known. ATBx per ID. No surgical placed feeding tube until she stabilizes and her wound have healed. Subjective Date of service: 11/21/16 Patient Reports: Positive: other (Cardiac arrest overnight requiring ACLS and now on dopamine (being converted to levophed)) Objective Vital Signs - 12hr 11/20/16 11/21/16 11/21/16 23:36 00:59 01:05 Temperature 97.8 F 98.8 F Pulse Rate 100 H 101 H Respiratory 24 24 Rate Blood Pressure Blood Pressure 144/66 185/95 [Right] O2 Sat by Pulse 99 96 Oximetry O2 Sat by Pulse 99 Oximetry [ Assessment] 11/21/16 11/21/16 11/21/16 04:29 04:50 08:17 Temperature 98.4 F Pulse Rate 96 H 92 H Respiratory 22 Rate Blood Pressure 185/95 Blood Pressure 172/92 [Right] O2 Sat by Pulse 96 98 Oximetry O2 Sat by Pulse Oximetry [ Assessment] 11/21/16 11/21/16 11/21/16 09:00 09:15 09:16 Temperature Pulse Rate 125 H 100 H Respiratory Rate Blood Pressure Blood Pressure [Right] O2 Sat by Pulse 100 Oximetry O2 Sat by Pulse 98 Oximetry [ Assessment] 11/21/16 11/21/16 09:47 10:00 Temperature 100 F H Pulse Rate 94 H Respiratory 21 Rate Blood Pressure 73/42 Blood Pressure [Right] O2 Sat by Pulse 100 Oximetry O2 Sat by Pulse Oximetry [ Assessment] - Abdomen soft, bowel sounds normal, not distended, other (RLQ wound still draining purulent material) - Labs 11/21/16 07:45 11/21/16 07:45 Diabetes panel 11/21/16 Range/Units 07:45 Sodium 138 (137-145) mmol/L Potassium 4.4 (3.6-5.0) mmol/L Chloride 100.2 (98-107) mmol/L Carbon Dioxide 25 (22-30) mmol/L BUN 42 H (7-17) mg/dL Creatinine 2.0 H (0.7-1.2) mg/dL Glucose 99 (65-100) mg/dL Calcium 8.9 (8.4-10.2) mg/dL Calcium panel 11/21/16 Range/Units 07:45 Calcium 8.9 (8.4-10.2) mg/dL Pituitary panel 11/21/16 Range/Units 07:45 Sodium 138 (137-145) mmol/L Potassium 4.4 (3.6-5.0) mmol/L Chloride 100.2 (98-107) mmol/L Carbon Dioxide 25 (22-30) mmol/L BUN 42 H (7-17) mg/dL Creatinine 2.0 H (0.7-1.2) mg/dL Glucose 99 (65-100) mg/dL Calcium 8.9 (8.4-10.2) mg/dL Adrenal panel 11/21/16 Range/Units 07:45 Sodium 138 (137-145) mmol/L Potassium 4.4 (3.6-5.0) mmol/L Chloride 100.2 (98-107) mmol/L Carbon Dioxide 25 (22-30) mmol/L BUN 42 H (7-17) mg/dL Creatinine 2.0 H (0.7-1.2) mg/dL Glucose 99 (65-100) mg/dL Calcium 8.9 (8.4-10.2) mg/dL
[2016-11-21] MEDS: LEVOPHED 8 MG in NACL 0.9% 250ML 242 ML IV SCH (11:28)
--- NOTE | 2016-11-21 12:41 | Event Note ---
Date: 11/21/16 DAKOTA ARORA was called at approximately 8:28 AM. As per her nurse, the patient had some emesis, the nurses have suctioned her mouth, shortly after, telemetry reported that there was a change in her rhythm. Patient was evaluated and found to be pulseless. ACLS was performed, patient received chest compressions , she is a 30 status post trach, therefore she was put on Ambu bag and received several rounds of therapy, after which there was a return of spontaneous circulation. Therefore patient was transferred to the ICU Physical exam General: Opens eyes, no distress, appears chronically ill HEENT: MMM, EOMI cardiac: S1-S2 heard lungs: ventilated breath sounds abdomen: soft, nontender, nondistended bowel sounds positive multiple ostomy bags noted, drainage is reduced extremities: no edema clubbing or cyanosis Skin: no rash or lesion Neuro: Status post tracheostomy, opens eyes, does not obey commands, right- sided weakness (i.e Right side less responsive to painful stimuli) Assessment and plan -This patient most likely aspirated, leading to CODE BLUE. -A.m. labs reviewed, no acute changes -We'll obtain EKG and chest x-ray -Give IV fluid bolus -Transfer back to ICU - put back on ventilator - will call family to inform them of change in status The high probability of a clinically significant, sudden or life threatening deterioration of the [cardiovascular and pulmonary] system(s) required my full and direct attention, intervention and personal management. The aggregate critical care time was [35] minutes. This time is in addition to time spent performing reported procedures but includes the following: [] Data Review and interpretation [] Patient assessment and monitoring of vital signs [] Documentation [] Medication orders and management
--- NOTE | 2016-11-21 12:57 | Progress Note ---
Assessment and Plan Assessment and plan: 46-year-old woman with a history of hypertension, diabetes, asthma, hyperlipidemia, chronic kidney disease and anxiety , who was brought in by family because, she couldn't get her words out, her face was also twisted, she was admitted for acute CVA and accelerated hypertension, she had a hx of poor adherence with her medications, and uncontrolled htn. Patient's SBP on admission was noted be greater than 260. TPA was started but this was discontinued after 5 minutes because her blood pressure became uncontrolled. The TPA was not initiated again because the patient was outside the TPA window. Status post cardiac arrest on 11/21 Received CPR and attained ROSC, vitals stable, glucose stable, chest x-ray improving, labs stable -Most likely related to aspiration as cardiac arrest happened shortly after the patient had emesis Fever continues to have low grade fevers. ID Physician following. I have discussed case with her multiple times. Patient was recently on Cefepime and Vancomycin, now discontinued few days ago by ID Physician , to monitor off Antibiotics. chest x-ray, blood cultures were unremarkable, catheter site growing multiple organisms sp R thoracentesis on 11/14, 240cc of serous fluid removed, cx of fluid was negative Stool negative for C. difficile -Severe Sepsis with septic shock, recurrent. Patient with multiple episodes of sepsis. Initial episode due to presumed aspiration pneumonia and septic episode on 09/23 from candidemia then a third episode from peritonitis from gastric perforation from dislodged PEG , there was an abscess in the abdomen present at that time that was draining pus. +/-UTI. The latest episode was related to surgical site infection. Antibiotics discontinued Surgical wound infection/gram-negative sepsis/candidemia/peritonitis PEG has been removed She will need to be on tube feeds through NG tube for a month, and then either a gastrostomy or jejunostomy tube replaced after her GI wounds have healed and infection is cleared -continue wound care to ostomy sites JUANITA, now ESRD Likely due to vasomotor nephropathy and ATN given sepsis Nephrology input appreciated, continue hemodialysis as per Nephrology Creatinine 2.2 today Acute CVA with infarct. sp TPA Continue neuro checks. Neurology input appreciated, CT shows continued evolution of left MCA infarct with slight mass effect and edema, and there is no hemorrhage - PRINCE showed hyperdynamic with ef of 75%, neither clot nor septal defect seen - MRA Brain shows near complete occlusion of M2 and M3 of the left MCA - Repeat CT scan done on 09/11, shows stable findings - carotid doppler negative - Echo shows preserved systolic function but does show some left ventricular diastolic dysfunction - continue asa and statin for secondary ppx Persistent vegetative state This patient's needs placement at SNF -She was denied for LTACH Acute hypoxic respiratory failure requiring MV >96hrs Status post tracheostomy, was on T piece now put back on Vent today Nosocomial acquired aspiration pneumonia/sepsis/UTI She had completed a course of antibiotics. Asthma/COPD exacerbation Now has trach Acute Toxic Metabolic encephalopathy. Multitifactorial, mostly secondary to evolution of CVA Hypertensive Emergency continue BP meds Bilateral pleural effusion, s/p right thoracentesis 11/14 fluid analysis cw transudate Paroxysmal atrial fibrillation with rapid ventricular rate and hyper-coaguable state , failed cardioversion Continue current medications, Not a candidate for anticoagulation secondary to anemia, thrombocytopenia, and massive CVA Hypokalemia/Hypomagnesemia/hypophosphatemia. Replete electrolytes as needed. Diabetes type 2. Continue sliding-scale regular insulin and Accu-Cheks. Hyperlipidemia. Continue statin Nutrition continue tube feeds Anemia requiring multiple transfusions/acute blood loss Has received total 13 units of PRBC this admission. Will continue to transfuse to keep Hemoglobin above 7 Hemoglobin 8.9, most recent Her POA is her Brother, Jam [phone] Disposition. Very poor prognosis. Plan is for SNF placement. She was denied by LTAC I personally had a family meeting with her Brother with the next of kin, her son and other family members present. I discussed with them that the patient has a very poor prognosis, she is in a persistent vegetative state. I let her prognosis is poor as she has multiorgan failure, she has end-stage renal disease , multiple infections, wounds with draining ostomies of her abdomen, sp trach, Tpiece/vent dependent. DO NOT RESUSCITATE and comfort care was recommended. Her brother adamantly stated that he did not want to give up his sister and would prefer that she remain full code and to continue aggressive treatments. He stated that he would like to be contacted if there is any change in her status and then he will consider readdressing goals of care . At this time she is planned for SNF placements, but lack of a PEG tube is barring sniff placement, they are not able to accept the patient with a nasogastric tube. The high probability of a clinically significant, sudden or life threatening deterioration of the [CV, pulmonary, neurological] system(s) required my full and direct attention, intervention and personal management. The aggregate critical care time was [33] minutes. This time is in addition to time spent performing reported procedures but includes the following: [] Data Review and interpretation [] Patient assessment and monitoring of vital signs [] Documentation [] Medication orders and management History Interval history: DAKOTA ARORA was called at approximately 8:28 AM. As per her nurse, the patient had some emesis, the nurses have suctioned her mouth, shortly after, telemetry reported that there was a change in her rhythm. Patient was evaluated and found to be pulseless. ACLS was performed, patient received chest compressions , she is status post trach, therefore she was put on Ambu bag and received several rounds of therapy, after which there was a return of spontaneous circulation. Therefore patient was transferred to the ICU - Hospitalist Physical - Physical exam Narrative exam: General: Opens eyes, no distress, appears chronically ill HEENT: MMM, EOMI cardiac: S1-S2 heard lungs: ventilated breath sounds abdomen: soft, nontender, nondistended bowel sounds positive multiple ostomy bags noted, drainage is reduced extremities: no edema clubbing or cyanosis Skin: no rash or lesion Neuro: Status post tracheostomy, opens eyes, does not obey commands, right- sided weakness (i.e Right side less responsive to painful stimuli) - Constitutional Vitals: Temp Pulse Resp BP Pulse Ox 100.8 F H 85 20 107/61 92 11/21/16 11:44 11/21/16 12:17 11/21/16 12:17 11/21/16 12:00 11/21/16 12:17 General appearance: Present: no acute distress Results - Labs CBC & Chem 7: 11/21/16 07:45 11/21/16 07:45 Labs: Laboratory Last Values WBC 22.0 K/mm3 (4.5-11.0) H 11/21/16 07:45 RBC 2.91 M/mm3 (3.65-5.03) L 11/21/16 07:45 Hgb 8.2 gm/dl (10.1-14.3) L 11/21/16 07:45 Hct 25.4 % (30.3-42.9) L 11/21/16 07:45 MCV 87 fl (79-97) 11/21/16 07:45 MCH 28 pg (28-32) 11/21/16 07:45 MCHC 32 % (30-34) 11/21/16 07:45 RDW 17.1 % (13.2-15.2) H 11/21/16 07:45 Plt Count 362 K/mm3 (140-440) 11/21/16 07:45 Lymph % (Auto) 27.4 % (13.4-35.0) 11/20/16 05:00 [place] % (Auto) 10.8 % (0.0-7.3) H 11/20/16 05:00 Eos % (Auto) 1.2 % (0.0-4.3) 11/20/16 05:00 Baso % (Auto) 0.5 % (0.0-1.8) 11/20/16 05:00 Lymph # 3.6 K/mm3 (1.2-5.4) 11/20/16 05:00 [place] # 1.4 K/mm3 (0.0-0.8) H 11/20/16 05:00 Eos # 0.2 K/mm3 (0.0-0.4) 11/20/16 05:00 Baso # 0.1 K/mm3 (0.0-0.1) 11/20/16 05:00 Add Manual Diff Complete 11/21/16 07:45 Total Counted 100 11/21/16 07:45 Seg Neutrophils % 60.1 % (40.0-70.0) 11/20/16 05:00 Seg Neuts % (Manual) 67.0 % (40.0-70.0) 11/21/16 07:45 Band Neutrophils % 20.0 % 11/21/16 07:45 Lymphocytes % (Manual) 8.0 % (13.4-35.0) L 11/21/16 07:45 Reactive Lymphs % (Man) 0 % 11/21/16 07:45 Monocytes % (Manual) 5.0 % (0.0-7.3) 11/21/16 07:45 Eosinophils % (Manual) 0 % (0.0-4.3) 11/21/16 07:45 Basophils % (Manual) 0 % (0.0-1.8) 11/21/16 07:45 Metamyelocytes % 0 % 11/21/16 07:45 Myelocytes % 0 % 11/21/16 07:45 Promyelocytes % 0 % 11/21/16 07:45 Blast Cells % 0 % 11/21/16 07:45 Nucleated RBC % Not Reportable 11/21/16 07:45 Seg Neutrophils # 7.9 K/mm3 (1.8-7.7) H 11/20/16 05:00 Seg Neutrophils # Man 14.7 K/mm3 (1.8-7.7) H 11/21/16 07:45 Band Neutrophils # 4.4 K/mm3 11/21/16 07:45 Lymphocytes # (Manual) 1.8 K/mm3 (1.2-5.4) 11/21/16 07:45 Abs React Lymphs (Man) 0.0 K/mm3 11/21/16 07:45 Monocytes # (Manual) 1.1 K/mm3 (0.0-0.8) H 11/21/16 07:45 Eosinophils # (Manual) 0.0 K/mm3 (0.0-0.4) 11/21/16 07:45 Basophils # (Manual) 0.0 K/mm3 (0.0-0.1) 11/21/16 07:45 Metamyelocytes # 0.0 K/mm3 11/21/16 07:45 Myelocytes # 0.0 K/mm3 11/21/16 07:45 Promyelocytes # 0.0 K/mm3 11/21/16 07:45 Blast Cells # 0.0 K/mm3 11/21/16 07:45 Pathologist Review 09/13/16 04:00 WBC Morphology Not Reportable 11/21/16 07:45 Hypersegmented Neuts Not Reportable 11/21/16 07:45 Hyposegmented Neuts Not Reportable 11/21/16 07:45 Hypogranular Neuts Not Reportable 11/21/16 07:45 Smudge Cells Not Reportable 11/21/16 07:45 Toxic Granulation Not Reportable 11/21/16 07:45 Toxic Vacuolation Not Reportable 11/21/16 07:45 Dohle Bodies Not Reportable 11/21/16 07:45 Pelger-Huet Anomaly Not Reportable 11/21/16 07:45 Jasmina Rods Not Reportable 11/21/16 07:45 Platelet Estimate Not Reportable 11/21/16 07:45 Clumped Platelets Not Reportable 11/21/16 07:45 Plt Clumps, EDTA Not Reportable 11/21/16 07:45 Large Platelets Not Reportable 11/21/16 07:45 Giant Platelets Not Reportable 11/21/16 07:45 Platelet Satelliting Not Reportable 11/21/16 07:45 Plt Morphology Comment Not Reportable 11/21/16 07:45 RBC Morphology Not Reportable 11/21/16 07:45 Dimorphic RBCs Not Reportable 11/21/16 07:45 Polychromasia Few 11/21/16 07:45 Hypochromasia Not Reportable 11/21/16 07:45 Poikilocytosis Not Reportable 11/21/16 07:45 Anisocytosis Not Reportable 11/21/16 07:45 Microcytosis Not Reportable 11/21/16 07:45 Macrocytosis Not Reportable 11/21/16 07:45 Spherocytes Not Reportable 11/21/16 07:45 Pappenheimer Bodies Not Reportable 11/21/16 07:45 Sickle Cells Not Reportable 11/21/16 07:45 Target Cells Not Reportable 11/21/16 07:45 Tear Drop Cells Not Reportable 11/21/16 07:45 Ovalocytes Not Reportable 11/21/16 07:45 Stomatocytes Few 10/06/16 03:50 Helmet Cells Not Reportable 11/21/16 07:45 [place] Bodies Not Reportable 11/21/16 07:45 Pep Rings Not Reportable 11/21/16 07:45 Elgin Cells Not Reportable 11/21/16 07:45 Bite Cells Not Reportable 11/21/16 07:45 Crenated Cell Not Reportable 11/21/16 07:45 Elliptocytes Not Reportable 11/21/16 07:45 Acanthocytes (Spur) Not Reportable 11/21/16 07:45 Rouleaux Not Reportable 11/21/16 07:45 Hemoglobin C Crystals Not Reportable 11/21/16 07:45 Schistocytes Not Reportable 11/21/16 07:45 Malaria parasites Not Reportable 11/21/16 07:45 ESR > 140.0 mm/Hr (0-20) 09/08/16 11:48 Jun Bodies Not Reportable 11/21/16 07:45 Hem Pathologist Commnt No 11/21/16 07:45 PT 16.8 Sec. (12.2-14.9) H 11/17/16 03:20 INR 1.37 (0.87-1.13) H 11/17/16 03:20 APTT 33.0 Sec. (24.2-36.6) 10/09/16 03:45 Thrombin Time 16.8 Sec. (15.1-19.6) 09/03/16 00:10 Fibrinogen 750 mg/dl (211-480) H 09/08/16 11:48 Lupus Anticoagulant see below 09/12/16 09:59 LA PTT Baseline See scanned report 09/12/16 09:59 dRVVT Confirm Interp Positive (Negative) H 09/12/16 09:59 dRVVT Screen 50:50 See scanned report 09/12/16 09:59 dRVVT Mix Interpret See scanned report 09/12/16 09:59 Protein C Antigen 122 % (70-140) 09/08/16 15:35 Free Protein S 97 % normal (50-147) 09/08/16 15:35 Total Protein S 109 % (70-140) 09/08/16 15:35 Antithrombin III Ag 100 % (80-120) 09/08/16 15:35 Heparin Anti-Xa, Unfract Negative (Negative) 09/29/16 13:35 Factor V Activity 182 % (65-150) H 09/08/16 15:35 POC ABG pH 7.346 (7.35-7.45) L 11/21/16 10:09 POC ABG pCO2 34.4 (35-45) L 11/21/16 10:09 POC ABG pO2 314 (80-105) H 11/21/16 10:09 POC ABG HCO3 18.8 11/21/16 10:09 POC ABG Total CO2 20 11/21/16 10:09 POC ABG O2 Sat 100 11/21/16 10:09 POC ABG Base Excess -7 11/21/16 10:09 FiO2 100 % 11/21/16 10:09 Sodium 138 mmol/L (137-145) 11/21/16 07:45 Potassium 4.4 mmol/L (3.6-5.0) 11/21/16 07:45 Chloride 100.2 mmol/L (98-107) 11/21/16 07:45 Carbon Dioxide 25 mmol/L (22-30) 11/21/16 07:45 Anion Gap 17 mmol/L 11/21/16 07:45 BUN 42 mg/dL (7-17) H 11/21/16 07:45 Creatinine 2.0 mg/dL (0.7-1.2) H 11/21/16 07:45 Estimated GFR 33 ml/min 11/21/16 07:45 BUN/Creatinine Ratio 21.00 % 11/21/16 07:45 Glucose 99 mg/dL (65-100) 11/21/16 07:45 POC Glucose 153 (70-105) H 11/21/16 11:20 Osmolality 351 Mosm/kg 09/16/16 11:47 Lactic Acid 4.50 mmol/L (0.7-2.0) H* 09/28/16 07:25 Calcium 8.9 mg/dL (8.4-10.2) 11/21/16 07:45 Phosphorus 4.40 mg/dL (2.5-4.5) 11/07/16 06:30 Magnesium 2.20 mg/dL (1.7-2.3) 11/07/16 06:30 Total Bilirubin 0.20 mg/dL (0.1-1.2) 11/06/16 06:25 Direct Bilirubin 0.3 mg/dL (0-0.2) H 10/10/16 05:00 Indirect Bilirubin 0.1 mg/dL 10/10/16 05:00 AST 103 units/L (5-40) H 11/06/16 06:25 ALT 77 units/L (7-56) H 11/06/16 06:25 Alkaline Phosphatase 285 units/L (35-129) H 11/06/16 06:25 Ammonia 27.0 umol/L (25-60) 09/07/16 08:37 Lactate Dehydrogenase 196 units/L (91-180) H 11/11/16 06:59 Total Creatine Kinase 121 units/L (30-135) 09/29/16 20:12 CK-MB (CK-2) < 1.0 ng/mL (0.0-4.0) 09/29/16 20:12 CK-MB (CK-2) Rel Index 0.8 (0-4) 09/29/16 20:12 Troponin T 0.204 ng/mL (0.00-0.029) H* 09/29/16 20:12 C-Reactive Protein 11.40 mg/dL (0.00-1.30) H 11/05/16 13:25 Total Protein 6.1 g/dL (6.3-8.2) L 11/11/16 06:59 Albumin 1.8 g/dL (3.9-5) L 11/06/16 06:25 Albumin/Globulin Ratio 0.4 % 11/06/16 06:25 Prealbumin 0.180 g/L (0.200-0.400) L 11/06/16 06:25 Triglycerides 137 mg/dL (2-149) 09/29/16 20:12 Cholesterol 31 mg/dL (50-199) L 09/29/16 20:12 LDL Cholesterol Direct 4 mg/dL (50-130) L 09/29/16 20:12 HDL Cholesterol 3 mg/dL (40-59) L 09/29/16 20:12 Cholesterol/HDL Ratio 10.33 % 09/29/16 20:12 Angiotensin Convert Enz See scanned report 09/08/16 11:48 Renin 0.99 ng/mL/h (0.25-5.82) 10/07/16 10:56 Aldosterone <1 ng/dL () 10/07/16 10:56 Aldosterone/Renin Dir see below 10/07/16 10:56 Serotonin Release Assay See scanned report 09/29/16 13:35 TSH 1.010 mlU/mL (0.270-4.200) 09/07/16 08:37 HCG, Qual Negative (Negative) 09/03/16 00:10 Urine Color Yellow (Yellow) 11/05/16 13:09 Urine Turbidity Clear (Clear) 11/05/16 13:09 Urine pH 9.0 (5.0-7.0) H 11/05/16 13:09 Ur Specific [place] 1.011 (1.003-1.030) 11/05/16 13:09 Urine Protein 100 mg/dl mg/dL (Negative) 11/05/16 13:09 Urine Glucose (UA) Neg mg/dL (Negative) 11/05/16 13:09 Urine Ketones Neg mg/dL (Negative) 11/05/16 13:09 Urine Blood Neg (Negative) 11/05/16 13:09 Urine Nitrite Neg (Negative) 11/05/16 13:09 Urine Bilirubin Neg (Negative) 11/05/16 13:09 Urine Urobilinogen < 2.0 mg/dL (<2.0) 11/05/16 13:09 Ur Leukocyte Esterase Neg (Negative) 11/05/16 13:09 Urine WBC (Auto) 4.0 /HPF (0.0-6.0) 11/05/16 13:09 Urine RBC (Auto) 1.0 /HPF (0.0-6.0) 11/05/16 13:09 U Epithel Cells (Auto) 1.0 /HPF (0-13.0) 10/07/16 18:30 Urine Bacteria (Auto) 4+ /HPF (Negative) 11/05/16 13:09 Urine WBC Clumps 2+ /HPF 09/07/16 02:47 Hyaline Casts 4 /LPF 09/07/16 02:47 Urine Mucus Few /HPF 10/07/16 18:30 Urine Yeast (Budding) 3+ /HPF 10/07/16 18:30 Urine Eosinophils None seen (None Seen) 09/07/16 16:00 Urine Total Volume 950 11/12/16 10:18 Urine Creatinine 19.7 mg/dL (0.1-20.0) 11/12/16 10:18 Height (in) 65.0 inches 11/12/16 10:18 Weight (lb) 181.0 lbs 11/12/16 10:18 Creatinine Clearance 5 11/12/16 10:18 Urine Sodium 36 mEq/L 09/16/16 19:19 Urine Total Protein 16 mg/dL (5-11.8) H 09/16/16 19:19 Fluid Total Protein < 3.0 (15.0-45.0) L 11/10/16 14:20 Fluid LDH 123 11/10/16 14:20 Vancomycin Trough 2.3 ug/mL (5.0-20.0) L 09/21/16 13:00 Random Vancomycin 24.7 ug/mL (0-40.0) 11/12/16 04:00 Urine Opiates Screen Presumptive negative 09/03/16 15:11 Urine Methadone Screen Presumptive positive 09/03/16 15:11 Ur Barbiturates Screen Presumptive positive 09/03/16 15:11 Ur Phencyclidine Scrn Presumptive negative 09/03/16 15:11 Ur Amphetamines Screen Presumptive negative 09/03/16 15:11 U Benzodiazepines Scrn Presumptive negative 09/03/16 15:11 Urine Cocaine Screen Presumptive negative 09/03/16 15:11 U Marijuana (THC) Screen Presumptive positive 09/03/16 15:11 Drugs of Abuse Note Disclamer 09/03/16 15:11 Rheumatoid Factor 24 IU/ml (0-13) H 09/08/16 11:48 SAHIL Screen Negative (Negative) 09/07/16 09:20 Proteinase 3 (PR3) Ab <1.0 AI (<1.0) 09/07/16 09:20 Myeloperoxidase Ab <1.0 AI (<1.0) 09/07/16 09:20 Sjogren's Antibody <1.0 AI (<1.0) 09/08/16 15:35 Scl-70 Scleroderma Ab <1.0 AI (<1.0) 09/08/16 15:35 Centromere B Antibody <1.0 AI (<1.0) 09/08/16 12:02 Heparin-induced Plt Ab Negative (Negative) 09/29/16 13:35 UF Heparin High Dose 11 % Release 09/29/16 13:35 SUDHIR UFH Low Dose 0.1 6 % Release 09/29/16 13:35 SUDHIR UFH Low Dose 0.5 8 % Release 09/29/16 13:35 Cardiolipid IgG Ab <14 GPL (<=14) 09/12/16 09:59 Cardiolipid IgA Ab <11 APL (<=11) 09/12/16 09:59 Cardiolipid IgM Ab <12 MPL (<=12) 09/12/16 09:59 Complement C3 148 mg/dL (90-180) 09/07/16 09:20 Complement C4 58 mg/dL (16-47) H 09/07/16 09:20 RPR Nonreactive (Nonreactive) 09/08/16 11:48 Hepatitis A IgM Ab Non-reactive (NonReactive) 09/24/16 14:40 Hep Bs Antigen Non-reactive (Negative) 09/24/16 14:40 Hep B Core IgM Ab Non-reactive (NonReactive) 09/24/16 14:40 Hepatitis C Antibody Non-reactive (NonReactive) 09/24/16 14:40 HIV 1&2 Antibody Rapid Non react (Non React) 09/08/16 11:48 HIV P24 Antigen Non react (Non React) 09/08/16 11:48 Miscellaneous Test Flexitest 1 H 11/05/16 13:25 Blood Type A POSITIVE 11/07/16 09:37 Antibody Screen Negative 11/07/16 09:37 DELORIS Antibody Screen Negative 09/25/16 10:30 Crossmatch See Detail 11/07/16 09:37 - Imaging and Cardiology Chest x-ray: image reviewed (Significant improvement and resolution of bilateral pleural effusions and cardiomegaly and mild central vascular congestion, no pulmonary edema)
[2016-11-21] MEDS: DIOVAN FEEDTUBE SCH ×2 (17:13→23:45)
[2016-11-21] MEDS: QUESTRAN PO SCH (17:13)
[2016-11-21] MEDS: NORVASC PO SCH (17:13)
[2016-11-21] MEDS: PROTONIX FEEDTUBE SCH (17:13)
[2016-11-21] MEDS ORDERED: ADRENALIN ONE (18:43)
[2016-11-21] MEDS ORDERED: INTROPIN DRIP 800 MG/D5W 250 ML IV ONE (18:43)
--- NOTE | 2016-11-21 20:17 | Cat Scan Report ---
FINAL REPORT EXAM: CT ABDOMEN PELVIS WO CON HISTORY: sepsis; draining RLQ abdominal wound; r/o abscess TECHNIQUE: Serial axial images through the abdomen and pelvis with coronal and sagittal reconstruction. PRIORS: CT abdomen pelvis from 11/09/2016. FINDINGS: There are moderate size bilateral pleural effusions. There is consolidation in the dependent portion of the lungs. Metallic tip feeding tube courses to the stomach. Gallbladder is surgically absent. No focal hepatic lesion is identified. Pancreas appears normal. Spleen appears normal. There is a myelolipoma in the right adrenal gland that measures 18 millimeters. Left adrenal gland appears normal. Kidneys appear normal. Aorta is normal in caliber. Bladder is decompressed by Herndon catheter. There low-density a ascites in the abdomen and pelvis. This appears similar to the prior study. No gross abnormality is seen in the uterus or adnexa. There is suggestion of wall thickening in the descending colon. Rectal tube is noted. There is a low-density fluid collection in the anterior abdominal wall on the right side which appears similar to the prior study. This measures approximately 5.2 x 1.9 centimeters in axial dimension. There is suggestion of tracks leading to the cutaneous surface, as in the prior study. Diffuse body wall edema is noted. No acute osseous abnormality is identified. IMPRESSION: 1. Bilateral pleural effusion. There is associated elevation in the lung bases which may be secondary to atelectasis, but superimposed infection is not excluded. 2. Low-density ascites is again noted in the abdomen and pelvis. 3. There is edema in the subcutaneous fat. 4. There is a low-density collection in the anterior abdominal wall. This appears similar to the prior study. This could represent phlegmon or abscess. There is bowel adjacent to the anterior abdominal wall deep to this collection. Possibility of fistula is not excluded. This can be further assessed with fluoroscopic fistulagram if indicated. 5. There is wall thickening in the distal colon. This may be exaggerated by nondistention. Possibility of colitis is not excluded. 6. Stable myelolipoma in the right adrenal gland.
[2016-11-22] MEDS: D5/0.45NS 1,000 ML IV SCH (00:27)
[2016-11-22] MEDS: HumuLIN R SUB-Q SCH ×3 (00:29→12:00)
[2016-11-22] MEDS: APRESOLINE IV PRN (01:45)
[2016-11-22] MEDS: LEVOPHED 8 MG in NACL 0.9% 250ML 242 ML IV SCH (03:57)
[2016-11-22] MEDS: LOPRESSOR FEEDTUBE SCH ×3 (04:00→21:36)
[2016-11-22] MEDS: CATAPRES PO SCH ×2 (06:50→14:15)
--- NOTE | 2016-11-22 07:31 | XRay Report ---
Portable chest: Respiratory distress. Comparison is made to the prior study of November 21. Tracheostomy and nasogastric tubes remain in good positions as do central venous lines. Lungs remain clear the heart is normal in size. Impression: No interval change.
--- NOTE | 2016-11-22 08:58 | Progress Note ---
Assessment and Plan Assessment and Plan 46-year-old woman with a history of hypertension, diabetes, asthma, hyperlipidemia, chronic kidney disease and anxiety , who was brought in by family because, she couldn't get her words out, her face was also twisted, she was admitted for acute CVA and accelerated hypertension, she had a hx of poor adherence with her medications, and uncontrolled htn. Patient's SBP on admission was noted be greater than 260. TPA was started but this was discontinued after 5 minutes because her blood pressure became uncontrolled. The TPA was not initiated again because the patient was outside the TPA window. Leukocytosis Continues to have low grade fevers, 101.6Tmax. ID Physician following. CT abdomen done post code to evaluate for worsening leukocytosis.... 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 Eli -Severe Sepsis with septic shock, recurrent. Patient with multiple episodes of sepsis. Initial episode due to presumed aspiration pneumonia and septic episode on 09/23 from candidemia then a third episode from peritonitis from gastric perforation from dislodged PEG , there was an abscess in the abdomen present at that time that was draining pus. +/-UTI. The latest episode was related to surgical site infection. Antibiotics discontinued few days ago. ID Physician to follow. -Norepinephrine is at 15mcg/hour, start weaning for MAP>65 Surgical wound infection/gram-negative sepsis/candidemia/peritonitis PEG has been removed She will need to be on tube feeds through NG tube for a month, and then either a gastrostomy or jejunostomy tube replaced after her GI wounds have healed and infection is cleared -continue wound care to ostomy sites JUANITA, now ESRD Likely due to vasomotor nephropathy and ATN given sepsis Nephrology input appreciated, continue hemodialysis as per Nephrology Creatinine 2.2 today Acute CVA with infarct. sp TPA Continue neuro checks. Neurology input appreciated, CT shows continued evolution of left MCA infarct with slight mass effect and edema, and there is no hemorrhage - PRINCE showed hyperdynamic with ef of 75%, neither clot nor septal defect seen - MRA Brain shows near complete occlusion of M2 and M3 of the left MCA - Repeat CT scan done on 09/11, shows stable findings - carotid doppler negative - Echo shows preserved systolic function but does show some left ventricular diastolic dysfunction - continue asa and statin for secondary ppx Paroxysmal atrial fibrillation. On Metoprolol Persistent vegetative state This patient's needs placement at either hospice or SNF -She was denied for LTACH Acute hypoxic respiratory failure requiring MV >96hrs Status post tracheostomy, back on full mechanical ventilatory support s/p PEA arrest with ROSC. ABG 7.48/34/86 AC-VC 22/500/PEEP5/30% Start PSV/SBT trials Nosocomial acquired aspiration pneumonia/sepsis/UTI She had completed a course of antibiotics. Now on Cefepime and Vanco for fever Asthma/COPD exacerbation Now has trach Acute Toxic Metabolic encephalopathy. Multitifactorial, mostly secondary to evolution of CVA Hypertensive Emergency Now on Metoprolol, Cozaar,Hydralazine, Clonidine patch. Bilateral pleural effusion, s/p right thoracentesis today Paroxysmal atrial fibrillation with rapid ventricular rate, failed cardioversion Continue current medications, Not a candidate for anticoagulation secondary to anemia, thrombocytopenia, and massive CVA Hypokalemia/Hypomagnesemia/hypophosphatemia. Replete electrolytes as needed. Diabetes type 2. Continue sliding-scale regular insulin and Accu-Cheks. Hyperlipidemia. Continue statin Nutrition continue tube feeds Anemia requiring multiple transfusions/acute blood loss Has received total 13 units of PRBC this admission. Will continue to transfuse to keep Hemoglobin above 7 Hemoglobin 8.9, most recent Her POA is her Brother, Jam [phone] Disposition. Very poor prognosis. Plan is for SNF placement once PEG is placed - Patient Problems (1) Acute respiratory failure with hypoxia Current Visit: Yes Status: Acute (2) Acute blood loss anemia Current Visit: Yes Status: Resolved (3) Acute CVA (cerebrovascular accident) Current Visit: Yes Status: Acute (4) Chronic renal insufficiency Current Visit: Yes Status: Acute Qualifiers: Chronic kidney disease stage: C (5) Uncontrolled hypertension Current Visit: Yes Status: Acute (6) Leukocytosis (leucocytosis) Current Visit: Yes Status: Acute Qualifiers: Leukocytosis type: leukemoid reaction Qualified Code(s): D72.823 - Leukemoid reaction (7) Dislodged gastrostomy tube Current Visit: Yes Status: Acute (8) Fungemia Current Visit: Yes Status: Acute Subjective Date of service: 11/22/16 Principal diagnosis: Acute resp failure on MVS; S/P Acute CVA; Acute Encephalopathy; JUANITA Interval history: Seen and examined. Vitals, labs, medications, chart reviewed. On mechanical ventilatory support s/p PEA arrest See code blue documentation for details. Back on full mechanical ventilatory support-No dyscynchrony noted Requiring vasopressor support to maintain MAP>65 Discussed in interdisciplinary rounds Objective - Exam Narrative Exam: General: Opens eyes, no distress, appears chronically ill s/p trach to vent AC-VC20/500/PEEP5 40% HEENT: MMM, EOMI cardiac: S1-S2 heard lungs: ventilated breath sounds abdomen: soft, nontender, nondistended bowel sounds positive multiple ostomy bags noted, drainage is on going extremities: no edema clubbing or cyanosis Skin: no rash or lesion..facial rash,acneform lesions Neuro: Status post tracheostomy, opens eyes, does not obey commands, right- sided weakness (i.e Right side less responsive to painful stimuli) Vital Signs - 12hr 11/21/16 11/21/16 11/21/16 21:00 21:15 21:30 Temperature Pulse Rate 120 H 122 H 122 H Pulse Rate [ From Monitor] Respiratory 22 16 34 H Rate Blood Pressure 141/63 121/79 139/79 O2 Sat by Pulse 99 93 95 Oximetry O2 Sat by Pulse Oximetry [ Assessment] 11/21/16 11/21/16 11/21/16 21:45 22:00 22:15 Temperature Pulse Rate 125 H 127 H 130 H Pulse Rate [ From Monitor] Respiratory 30 H 29 H 31 H Rate Blood Pressure 122/62 130/68 134/77 O2 Sat by Pulse 94 97 99 Oximetry O2 Sat by Pulse Oximetry [ Assessment] 11/21/16 11/21/16 11/21/16 22:30 22:45 23:00 Temperature Pulse Rate 129 H 131 H 130 H Pulse Rate [ From Monitor] Respiratory 29 H 29 H 30 H Rate Blood Pressure 128/76 142/78 127/76 O2 Sat by Pulse 99 98 98 Oximetry O2 Sat by Pulse Oximetry [ Assessment] 11/21/16 11/21/16 11/21/16 23:06 23:15 23:20 Temperature Pulse Rate 101 H 131 H 130 H Pulse Rate [ From Monitor] Respiratory 19 19 Rate Blood Pressure 125/70 125/70 O2 Sat by Pulse 98 99 99 Oximetry O2 Sat by Pulse Oximetry [ Assessment] 11/21/16 11/21/16 11/21/16 23:30 23:45 23:50 Temperature Pulse Rate 132 H 136 H 130 H Pulse Rate [ From Monitor] Respiratory 21 21 Rate Blood Pressure 123/77 126/82 120/70 O2 Sat by Pulse 99 100 Oximetry O2 Sat by Pulse Oximetry [ Assessment] 11/21/16 11/22/16 11/22/16 23:51 00:00 00:15 Temperature 100.9 F H Pulse Rate 130 H 133 H 134 H Pulse Rate [ From Monitor] Respiratory 27 H 28 H Rate Blood Pressure 120/70 121/73 138/78 O2 Sat by Pulse 100 100 Oximetry O2 Sat by Pulse Oximetry [ Assessment] 11/22/16 11/22/16 11/22/16 00:30 00:32 00:45 Temperature Pulse Rate 127 H 133 H Pulse Rate [ 130 H From Monitor] Respiratory 29 H 26 H 46 H Rate Blood Pressure 126/82 211/92 O2 Sat by Pulse 100 98 100 Oximetry O2 Sat by Pulse Oximetry [ Assessment] 11/22/16 11/22/16 11/22/16 01:00 01:15 01:30 Temperature Pulse Rate 140 H 140 H 135 H Pulse Rate [ From Monitor] Respiratory 56 H 53 H 54 H Rate Blood Pressure 222/102 209/95 198/92 O2 Sat by Pulse 100 100 100 Oximetry O2 Sat by Pulse Oximetry [ Assessment] 11/22/16 11/22/16 11/22/16 01:45 02:00 02:16 Temperature Pulse Rate 135 H 132 H 125 H Pulse Rate [ From Monitor] Respiratory 58 H 30 H 29 H Rate Blood Pressure 192/93 192/93 77/24 O2 Sat by Pulse 100 100 100 Oximetry O2 Sat by Pulse Oximetry [ Assessment] 11/22/16 11/22/16 11/22/16 02:30 02:37 02:39 Temperature Pulse Rate 123 H 113 H Pulse Rate [ From Monitor] Respiratory 30 H Rate Blood Pressure 84/43 98/62 O2 Sat by Pulse 100 100 Oximetry O2 Sat by Pulse 100 Oximetry [ Assessment] 11/22/16 11/22/16 11/22/16 02:45 03:00 03:15 Temperature Pulse Rate 125 H 122 H 122 H Pulse Rate [ From Monitor] Respiratory 27 H 25 H 24 Rate Blood Pressure 93/48 93/48 100/58 O2 Sat by Pulse 100 100 100 Oximetry O2 Sat by Pulse Oximetry [ Assessment] 11/22/16 11/22/16 11/22/16 03:30 03:45 03:58 Temperature 101.6 F H Pulse Rate 122 H 119 H Pulse Rate [ From Monitor] Respiratory 30 H 40 H Rate Blood Pressure 106/62 114/61 O2 Sat by Pulse 100 100 Oximetry O2 Sat by Pulse Oximetry [ Assessment] 11/22/16 11/22/16 11/22/16 04:00 04:15 04:30 Temperature Pulse Rate 118 H 120 H 118 H Pulse Rate [ From Monitor] Respiratory 23 23 23 Rate Blood Pressure 105/64 112/58 105/54 O2 Sat by Pulse 100 100 100 Oximetry O2 Sat by Pulse Oximetry [ Assessment] 11/22/16 11/22/16 11/22/16 04:32 04:46 04:50 Temperature Pulse Rate 129 H 121 H Pulse Rate [ From Monitor] Respiratory 15 22 Rate Blood Pressure 126/69 O2 Sat by Pulse 98 100 100 Oximetry O2 Sat by Pulse Oximetry [ Assessment] 11/22/16 11/22/16 11/22/16 05:00 05:15 05:30 Temperature Pulse Rate 127 H 123 H 123 H Pulse Rate [ From Monitor] Respiratory 25 H 24 24 Rate Blood Pressure 114/60 110/59 115/57 O2 Sat by Pulse 99 100 100 Oximetry O2 Sat by Pulse Oximetry [ Assessment] 11/22/16 11/22/16 11/22/16 05:45 06:00 06:15 Temperature Pulse Rate 117 H 120 H 123 H Pulse Rate [ From Monitor] Respiratory 22 23 23 Rate Blood Pressure 113/50 109/56 131/69 O2 Sat by Pulse 99 99 100 Oximetry O2 Sat by Pulse Oximetry [ Assessment] 11/22/16 11/22/16 11/22/16 06:30 06:45 06:50 Temperature Pulse Rate 119 H 116 H 122 H Pulse Rate [ From Monitor] Respiratory 20 23 Rate Blood Pressure 131/69 124/68 124/68 O2 Sat by Pulse 100 100 Oximetry O2 Sat by Pulse Oximetry [ Assessment] 11/22/16 07:57 Temperature 99.5 F Pulse Rate Pulse Rate [ From Monitor] Respiratory Rate Blood Pressure O2 Sat by Pulse Oximetry O2 Sat by Pulse Oximetry [ Assessment] Constitutional: no acute distress, other (eyes open; tracking movements) Eyes: non-icteric, other (tracheostomy tube in midline of neck) ENT: oropharynx moist Neck: supple, no lymphadenopathy Effort: mildly labored Ascultation: Bilateral: clear, diminished breath sounds (bases), rales, rhonchi (and referred upper airway sounds) Cardiovascular: regular rate and rhythm Gastrointestinal: hypoactive bowel sounds, soft, non-tender, non-distended, other (RLQ stomas with colostomy bags) Integumentary: other (healing back burn-like injury) Extremities: no cyanosis, no edema, pulses normal, no ischemia or petechiae Neurologic: pupils equal and round, other (encephalopathic) Psychiatric: other (unable to assess) CBC and BMP: 11/21/16 07:45 11/21/16 07:45 ABG, PT/INR, D-dimer: ABG POC ABG pH 7.399 (7.35-7.45) 11/22/16 04:48 POC ABG pCO2 24.6 (35-45) L 11/22/16 04:48 POC ABG pO2 189 (80-105) H 11/22/16 04:48 POC ABG HCO3 15.2 11/22/16 04:48 POC ABG Total CO2 16 11/22/16 04:48 POC ABG O2 Sat 100 11/22/16 04:48 PT/INR, D-dimer PT 16.8 Sec. (12.2-14.9) H 11/17/16 03:20 INR 1.37 (0.87-1.13) H 11/17/16 03:20 Abnormal lab findings: Abnormal Labs 09/03/16 09/03/16 09/03/16 12:12 15:07 16:20 WBC RBC Hgb Hct MCV MCH MCHC RDW Plt Count Lymph % (Auto) [place] % (Auto) Lymph # [place] # Baso # Seg Neutrophils % Seg Neuts % (Manual) Lymphocytes % (Manual) Monocytes % (Manual) Eosinophils % (Manual) Basophils % (Manual) Nucleated RBC % Seg Neutrophils # Seg Neutrophils # Man Lymphocytes # (Manual) Monocytes # (Manual) Eosinophils # (Manual) PT INR Fibrinogen dRVVT Confirm Interp Factor V Activity POC ABG pH 7.452 H POC ABG pCO2 POC ABG pO2 Sodium Potassium Chloride Carbon Dioxide BUN Creatinine Glucose POC Glucose 178 H Lactic Acid Calcium Phosphorus 2.20 L Magnesium 1.60 L Direct Bilirubin AST ALT Alkaline Phosphatase Lactate Dehydrogenase Troponin T C-Reactive Protein Total Protein Albumin Prealbumin Triglycerides Cholesterol LDL Cholesterol Direct HDL Cholesterol Urine pH Urine WBC (Auto) Urine Creatinine Urine Total Protein Fluid Total Protein Vancomycin Trough Rheumatoid Factor Complement C4 Miscellaneous Test Crossmatch 09/03/16 09/03/16 09/03/16 17:57 17:58 23:50 WBC RBC Hgb Hct MCV MCH MCHC RDW Plt Count Lymph % (Auto) [place] % (Auto) Lymph # [place] # Baso # Seg Neutrophils % Seg Neuts % (Manual) Lymphocytes % (Manual) Monocytes % (Manual) Eosinophils % (Manual) Basophils % (Manual) Nucleated RBC % Seg Neutrophils # Seg Neutrophils # Man Lymphocytes # (Manual) Monocytes # (Manual) Eosinophils # (Manual) PT INR Fibrinogen dRVVT Confirm Interp Factor V Activity POC ABG pH POC ABG pCO2 POC ABG pO2 Sodium Potassium Chloride Carbon Dioxide BUN Creatinine Glucose POC Glucose 162 H 145 H Lactic Acid Calcium Phosphorus 2.30 L Magnesium Direct Bilirubin AST ALT Alkaline Phosphatase Lactate Dehydrogenase Troponin T C-Reactive Protein Total Protein Albumin Prealbumin Triglycerides Cholesterol LDL Cholesterol Direct HDL Cholesterol Urine pH Urine WBC (Auto) Urine Creatinine Urine Total Protein Fluid Total Protein Vancomycin Trough Rheumatoid Factor Complement C4 Miscellaneous Test Crossmatch 09/04/16 09/04/16 09/04/16 03:31 03:31 05:42 WBC RBC Hgb 9.7 L D Hct MCV 72 L MCH 23 L MCHC RDW 17.5 H Plt Count Lymph % (Auto) 11.[address] [place] % (Auto) Lymph # [place] # Baso # Seg Neutrophils % 84.3 H Seg Neuts % (Manual) Lymphocytes % (Manual) Monocytes % (Manual) Eosinophils % (Manual) Basophils % (Manual) Nucleated RBC % Seg Neutrophils # 8.9 H Seg Neutrophils # Man Lymphocytes # (Manual) Monocytes # (Manual) Eosinophils # (Manual) PT INR Fibrinogen dRVVT Confirm Interp Factor V Activity POC ABG pH POC ABG pCO2 POC ABG pO2 Sodium 135 L Potassium 2.9 L* Chloride 97.2 L Carbon Dioxide 19 L BUN Creatinine 1.7 H Glucose 170 H POC Glucose 152 H Lactic Acid Calcium Phosphorus Magnesium Direct Bilirubin AST ALT Alkaline Phosphatase Lactate Dehydrogenase Troponin T C-Reactive Protein Total Protein Albumin Prealbumin Triglycerides 160 H Cholesterol LDL Cholesterol Direct HDL Cholesterol 31 L Urine pH Urine WBC (Auto) Urine Creatinine Urine Total Protein Fluid Total Protein Vancomycin Trough Rheumatoid Factor Complement C4 Miscellaneous Test Crossmatch 09/04/16 09/04/16 09/04/16 11:34 17:46 23:29 WBC RBC Hgb Hct MCV MCH MCHC RDW Plt Count Lymph % (Auto) [place] % (Auto) Lymph # [place] # Baso # Seg Neutrophils % Seg Neuts % (Manual) Lymphocytes % (Manual) Monocytes % (Manual) Eosinophils % (Manual) Basophils % (Manual) Nucleated RBC % Seg Neutrophils # Seg Neutrophils # Man Lymphocytes # (Manual) Monocytes # (Manual) Eosinophils # (Manual) PT INR Fibrinogen dRVVT Confirm Interp Factor V Activity POC ABG pH POC ABG pCO2 POC ABG pO2 Sodium Potassium Chloride Carbon Dioxide BUN Creatinine Glucose POC Glucose 165 H 210 H 139 H Lactic Acid Calcium Phosphorus Magnesium Direct Bilirubin AST ALT Alkaline Phosphatase Lactate Dehydrogenase Troponin T C-Reactive Protein Total Protein Albumin Prealbumin Triglycerides Cholesterol LDL Cholesterol Direct HDL Cholesterol Urine pH Urine WBC (Auto) Urine Creatinine Urine Total Protein Fluid Total Protein Vancomycin Trough Rheumatoid Factor Complement C4 Miscellaneous Test Crossmatch 09/05/16 09/05/16 09/05/16 04:05 04:05 05:38 WBC RBC Hgb Hct MCV 76 L D MCH 23 L MCHC RDW 17.8 H Plt Count Lymph % (Auto) [place] % (Auto) Lymph # [place] # Baso # Seg Neutrophils % Seg Neuts % (Manual) Lymphocytes % (Manual) Monocytes % (Manual) Eosinophils % (Manual) Basophils % (Manual) Nucleated RBC % Seg Neutrophils # Seg Neutrophils # Man Lymphocytes # (Manual) Monocytes # (Manual) Eosinophils # (Manual) PT INR Fibrinogen dRVVT Confirm Interp Factor V Activity POC ABG pH POC ABG pCO2 POC ABG pO2 Sodium 134 L Potassium Chloride Carbon Dioxide 18 L BUN Creatinine 1.8 H Glucose 192 H POC Glucose 175 H Lactic Acid Calcium Phosphorus Magnesium Direct Bilirubin AST ALT Alkaline Phosphatase Lactate Dehydrogenase Troponin T C-Reactive Protein Total Protein Albumin Prealbumin Triglycerides Cholesterol LDL Cholesterol Direct HDL Cholesterol Urine pH Urine WBC (Auto) Urine Creatinine Urine Total Protein Fluid Total Protein Vancomycin Trough Rheumatoid Factor Complement C4 Miscellaneous Test Crossmatch 09/05/16 09/05/16 09/05/16 11:38 17:48 23:22 WBC RBC Hgb Hct MCV MCH MCHC RDW Plt Count Lymph % (Auto) [place] % (Auto) Lymph # [place] # Baso # Seg Neutrophils % Seg Neuts % (Manual) Lymphocytes % (Manual) Monocytes % (Manual) Eosinophils % (Manual) Basophils % (Manual) Nucleated RBC % Seg Neutrophils # Seg Neutrophils # Man Lymphocytes # (Manual) Monocytes # (Manual) Eosinophils # (Manual) PT INR Fibrinogen dRVVT Confirm Interp Factor V Activity POC ABG pH POC ABG pCO2 POC ABG pO2 Sodium Potassium Chloride Carbon Dioxide BUN Creatinine Glucose POC Glucose 164 H 186 H 195 H Lactic Acid Calcium Phosphorus Magnesium Direct Bilirubin AST ALT Alkaline Phosphatase Lactate Dehydrogenase Troponin T C-Reactive Protein Total Protein Albumin Prealbumin Triglycerides Cholesterol LDL Cholesterol Direct HDL Cholesterol Urine pH Urine WBC (Auto) Urine Creatinine Urine Total Protein Fluid Total Protein Vancomycin Trough Rheumatoid Factor Complement C4 Miscellaneous Test Crossmatch 09/06/16 09/06/16 09/06/16 04:12 05:59 07:32 WBC RBC Hgb Hct MCV MCH MCHC RDW Plt Count Lymph % (Auto) [place] % (Auto) Lymph # [place] # Baso # Seg Neutrophils % Seg Neuts % (Manual) Lymphocytes % (Manual) Monocytes % (Manual) Eosinophils % (Manual) Basophils % (Manual) Nucleated RBC % Seg Neutrophils # Seg Neutrophils # Man Lymphocytes # (Manual) Monocytes # (Manual) Eosinophils # (Manual) PT INR Fibrinogen dRVVT Confirm Interp Factor V Activity POC ABG pH 7.514 H POC ABG pCO2 29.1 L POC ABG pO2 72 L Sodium 133 L Potassium 3.4 L Chloride 94.9 L Carbon Dioxide 19 L BUN 30 H Creatinine 2.1 H Glucose 139 H POC Glucose 146 H Lactic Acid Calcium Phosphorus Magnesium Direct Bilirubin AST ALT Alkaline Phosphatase Lactate Dehydrogenase Troponin T C-Reactive Protein Total Protein Albumin Prealbumin Triglycerides Cholesterol LDL Cholesterol Direct HDL Cholesterol Urine pH Urine WBC (Auto) Urine Creatinine Urine Total Protein Fluid Total Protein Vancomycin Trough Rheumatoid Factor Complement C4 Miscellaneous Test Crossmatch 09/06/16 09/06/16 09/06/16 11:57 17:58 19:02 WBC RBC Hgb Hct MCV MCH MCHC RDW Plt Count Lymph % (Auto) [place] % (Auto) Lymph # [place] # Baso # Seg Neutrophils % Seg Neuts % (Manual) Lymphocytes % (Manual) Monocytes % (Manual) Eosinophils % (Manual) Basophils % (Manual) Nucleated RBC % Seg Neutrophils # Seg Neutrophils # Man Lymphocytes # (Manual) Monocytes # (Manual) Eosinophils # (Manual) PT INR Fibrinogen dRVVT Confirm Interp Factor V Activity POC ABG pH 7.465 H POC ABG pCO2 32.0 L POC ABG pO2 Sodium Potassium Chloride Carbon Dioxide BUN Creatinine Glucose POC Glucose 165 H 160 H Lactic Acid Calcium Phosphorus Magnesium Direct Bilirubin AST ALT Alkaline Phosphatase Lactate Dehydrogenase Troponin T C-Reactive Protein Total Protein Albumin Prealbumin Triglycerides Cholesterol LDL Cholesterol Direct HDL Cholesterol Urine pH Urine WBC (Auto) Urine Creatinine Urine Total Protein Fluid Total Protein Vancomycin Trough Rheumatoid Factor Complement C4 Miscellaneous Test Crossmatch 09/06/16 09/07/16 09/07/16 23:45 02:47 02:47 WBC RBC Hgb Hct MCV MCH MCHC RDW Plt Count Lymph % (Auto) [place] % (Auto) Lymph # [place] # Baso # Seg Neutrophils % Seg Neuts % (Manual) Lymphocytes % (Manual) Monocytes % (Manual) Eosinophils % (Manual) Basophils % (Manual) Nucleated RBC % Seg Neutrophils # Seg Neutrophils # Man Lymphocytes # (Manual) Monocytes # (Manual) Eosinophils # (Manual) PT INR Fibrinogen dRVVT Confirm Interp Factor V Activity POC ABG pH POC ABG pCO2 POC ABG pO2 Sodium Potassium Chloride Carbon Dioxide BUN Creatinine Glucose POC Glucose 204 H Lactic Acid Calcium Phosphorus Magnesium Direct Bilirubin AST ALT Alkaline Phosphatase Lactate Dehydrogenase Troponin T C-Reactive Protein Total Protein Albumin Prealbumin Triglycerides Cholesterol LDL Cholesterol Direct HDL Cholesterol Urine pH Urine WBC (Auto) 68.0 H Urine Creatinine 106.1 H Urine Total Protein Fluid Total Protein Vancomycin Trough Rheumatoid Factor Complement C4 Miscellaneous Test Crossmatch 09/07/16 09/07/16 09/07/16 04:50 06:19 06:39 WBC RBC Hgb Hct MCV MCH MCHC RDW Plt Count Lymph % (Auto) [place] % (Auto) Lymph # [place] # Baso # Seg Neutrophils % Seg Neuts % (Manual) Lymphocytes % (Manual) Monocytes % (Manual) Eosinophils % (Manual) Basophils % (Manual) Nucleated RBC % Seg Neutrophils # Seg Neutrophils # Man Lymphocytes # (Manual) Monocytes # (Manual) Eosinophils # (Manual) PT INR Fibrinogen dRVVT Confirm Interp Factor V Activity POC ABG pH 7.457 H POC ABG pCO2 32.1 L POC ABG pO2 76 L Sodium 132 L Potassium Chloride 94.7 L Carbon Dioxide BUN 53 H Creatinine 2.9 H Glucose 151 H POC Glucose 149 H Lactic Acid Calcium Phosphorus Magnesium Direct Bilirubin AST ALT Alkaline Phosphatase Lactate Dehydrogenase Troponin T C-Reactive Protein Total Protein Albumin Prealbumin Triglycerides Cholesterol LDL Cholesterol Direct HDL Cholesterol Urine pH Urine WBC (Auto) Urine Creatinine Urine Total Protein Fluid Total Protein Vancomycin Trough Rheumatoid Factor Complement C4 Miscellaneous Test Crossmatch 09/07/16 09/07/16 09/07/16 09:20 11:43 11:43 WBC 19.4 H RBC Hgb 8.3 L Hct 26.4 L D MCV 72 L D MCH 22 L MCHC RDW 17.9 H Plt Count Lymph % (Auto) 8.[address] [place] % (Auto) Lymph # [place] # 1.0 H Baso # Seg Neutrophils % 85.8 H Seg Neuts % (Manual) Lymphocytes % (Manual) Monocytes % (Manual) Eosinophils % (Manual) Basophils % (Manual) Nucleated RBC % Seg Neutrophils # 16.6 H Seg Neutrophils # Man Lymphocytes # (Manual) Monocytes # (Manual) Eosinophils # (Manual) PT INR Fibrinogen dRVVT Confirm Interp Factor V Activity POC ABG pH POC ABG pCO2 POC ABG pO2 Sodium 134 L Potassium Chloride 97.2 L Carbon Dioxide 20 L BUN 58 H Creatinine 2.9 H Glucose 147 H POC Glucose Lactic Acid Calcium Phosphorus 2.40 L Magnesium 2.40 H Direct Bilirubin AST ALT Alkaline Phosphatase Lactate Dehydrogenase Troponin T C-Reactive Protein Total Protein 5.8 L Albumin 2.2 L Prealbumin Triglycerides Cholesterol LDL Cholesterol Direct HDL Cholesterol Urine pH Urine WBC (Auto) Urine Creatinine Urine Total Protein Fluid Total Protein Vancomycin Trough Rheumatoid Factor Complement C4 58 H Miscellaneous Test Crossmatch 09/07/16 09/07/16 09/07/16 11:50 16:00 17:31 WBC RBC Hgb Hct MCV MCH MCHC RDW Plt Count Lymph % (Auto) [place] % (Auto) Lymph # [place] # Baso # Seg Neutrophils % Seg Neuts % (Manual) Lymphocytes % (Manual) Monocytes % (Manual) Eosinophils % (Manual) Basophils % (Manual) Nucleated RBC % Seg Neutrophils # Seg Neutrophils # Man Lymphocytes # (Manual) Monocytes # (Manual) Eosinophils # (Manual) PT INR Fibrinogen dRVVT Confirm Interp Factor V Activity POC ABG pH POC ABG pCO2 POC ABG pO2 158 H Sodium Potassium Chloride Carbon Dioxide BUN Creatinine Glucose POC Glucose 175 H Lactic Acid Calcium Phosphorus Magnesium Direct Bilirubin AST ALT Alkaline Phosphatase Lactate Dehydrogenase Troponin T C-Reactive Protein Total Protein Albumin Prealbumin Triglycerides Cholesterol LDL Cholesterol Direct HDL Cholesterol Urine pH Urine WBC (Auto) Urine Creatinine 66.3 H Urine Total Protein Fluid Total Protein Vancomycin Trough Rheumatoid Factor Complement C4 Miscellaneous Test Crossmatch 09/07/16 09/08/16 09/08/16 23:50 05:46 06:18 WBC 17.8 H RBC 3.58 L Hgb 8.1 L Hct 25.5 L MCV 71 L MCH 23 L MCHC RDW 18.4 H Plt Count Lymph % (Auto) [place] % (Auto) Lymph # [place] # Baso # Seg Neutrophils % Seg Neuts % (Manual) 92.0 H Lymphocytes % (Manual) 6.0 L Monocytes % (Manual) Eosinophils % (Manual) Basophils % (Manual) Nucleated RBC % Seg Neutrophils # Seg Neutrophils # Man 16.4 H Lymphocytes # (Manual) 1.1 L Monocytes # (Manual) Eosinophils # (Manual) PT INR Fibrinogen dRVVT Confirm Interp Factor V Activity POC ABG pH POC ABG pCO2 34.3 L POC ABG pO2 71 L Sodium Potassium Chloride Carbon Dioxide BUN Creatinine Glucose POC Glucose 216 H Lactic Acid Calcium Phosphorus Magnesium Direct Bilirubin AST ALT Alkaline Phosphatase Lactate Dehydrogenase Troponin T C-Reactive Protein Total Protein Albumin Prealbumin Triglycerides Cholesterol LDL Cholesterol Direct HDL Cholesterol Urine pH Urine WBC (Auto) Urine Creatinine Urine Total Protein Fluid Total Protein Vancomycin Trough Rheumatoid Factor Complement C4 Miscellaneous Test Crossmatch 09/08/16 09/08/16 09/08/16 06:18 06:51 10:55 WBC RBC Hgb Hct MCV MCH MCHC RDW Plt Count Lymph % (Auto) [place] % (Auto) Lymph # [place] # Baso # Seg Neutrophils % Seg Neuts % (Manual) Lymphocytes % (Manual) Monocytes % (Manual) Eosinophils % (Manual) Basophils % (Manual) Nucleated RBC % Seg Neutrophils # Seg Neutrophils # Man Lymphocytes # (Manual) Monocytes # (Manual) Eosinophils # (Manual) PT INR Fibrinogen dRVVT Confirm Interp Factor V Activity POC ABG pH POC ABG pCO2 POC ABG pO2 Sodium 133 L Potassium Chloride 96.9 L Carbon Dioxide 20 L BUN 63 H Creatinine 2.7 H Glucose 195 H POC Glucose 204 H 169 H Lactic Acid Calcium Phosphorus Magnesium Direct Bilirubin AST ALT Alkaline Phosphatase Lactate Dehydrogenase Troponin T C-Reactive Protein Total Protein Albumin Prealbumin Triglycerides Cholesterol LDL Cholesterol Direct HDL Cholesterol Urine pH Urine WBC (Auto) Urine Creatinine Urine Total Protein Fluid Total Protein Vancomycin Trough Rheumatoid Factor Complement C4 Miscellaneous Test Crossmatch 09/08/16 09/08/16 09/08/16 11:48 11:48 11:48 WBC RBC Hgb Hct MCV MCH MCHC RDW Plt Count Lymph % (Auto) [place] % (Auto) Lymph # [place] # Baso # Seg Neutrophils % Seg Neuts % (Manual) Lymphocytes % (Manual) Monocytes % (Manual) Eosinophils % (Manual) Basophils % (Manual) Nucleated RBC % Seg Neutrophils # Seg Neutrophils # Man Lymphocytes # (Manual) Monocytes # (Manual) Eosinophils # (Manual) PT INR Fibrinogen 750 H dRVVT Confirm Interp Factor V Activity POC ABG pH POC ABG pCO2 POC ABG pO2 Sodium Potassium Chloride Carbon Dioxide BUN Creatinine Glucose POC Glucose Lactic Acid Calcium Phosphorus Magnesium Direct Bilirubin AST ALT Alkaline Phosphatase Lactate Dehydrogenase Troponin T C-Reactive Protein 15.70 H Total Protein Albumin Prealbumin Triglycerides Cholesterol LDL Cholesterol Direct HDL Cholesterol Urine pH Urine WBC (Auto) Urine Creatinine Urine Total Protein Fluid Total Protein Vancomycin Trough Rheumatoid Factor 24 H Complement C4 Miscellaneous Test Crossmatch 09/08/16 09/08/16 09/09/16 15:35 18:25 00:24 WBC RBC Hgb Hct MCV MCH MCHC RDW Plt Count Lymph % (Auto) [place] % (Auto) Lymph # [place] # Baso # Seg Neutrophils % Seg Neuts % (Manual) Lymphocytes % (Manual) Monocytes % (Manual) Eosinophils % (Manual) Basophils % (Manual) Nucleated RBC % Seg Neutrophils # Seg Neutrophils # Man Lymphocytes # (Manual) Monocytes # (Manual) Eosinophils # (Manual) PT INR Fibrinogen dRVVT Confirm Interp Factor V Activity 182 H POC ABG pH POC ABG pCO2 POC ABG pO2 Sodium Potassium Chloride Carbon Dioxide BUN Creatinine Glucose POC Glucose 184 H 216 H Lactic Acid Calcium Phosphorus Magnesium Direct Bilirubin AST ALT Alkaline Phosphatase Lactate Dehydrogenase Troponin T C-Reactive Protein Total Protein Albumin Prealbumin Triglycerides Cholesterol LDL Cholesterol Direct HDL Cholesterol Urine pH Urine WBC (Auto) Urine Creatinine Urine Total Protein Fluid Total Protein Vancomycin Trough Rheumatoid Factor Complement C4 Miscellaneous Test Crossmatch 09/09/16 09/09/16 09/09/16 03:00 03:00 04:04 WBC 27.9 H RBC Hgb 8.7 L Hct 28.1 L MCV 72 L MCH 22 L MCHC RDW 18.4 H Plt Count 485 H Lymph % (Auto) [place] % (Auto) Lymph # [place] # Baso # Seg Neutrophils % Seg Neuts % (Manual) 77.0 H Lymphocytes % (Manual) 9.0 L Monocytes % (Manual) Eosinophils % (Manual) Basophils % (Manual) Nucleated RBC % Seg Neutrophils # Seg Neutrophils # Man 21.5 H Lymphocytes # (Manual) Monocytes # (Manual) 2.0 H Eosinophils # (Manual) PT INR Fibrinogen dRVVT Confirm Interp Factor V Activity POC ABG pH POC ABG pCO2 POC ABG pO2 121 H Sodium 135 L Potassium Chloride 96.3 L Carbon Dioxide 21 L BUN 83 H Creatinine 3.0 H Glucose 135 H POC Glucose Lactic Acid Calcium Phosphorus Magnesium Direct Bilirubin AST ALT Alkaline Phosphatase Lactate Dehydrogenase Troponin T C-Reactive Protein Total Protein Albumin Prealbumin Triglycerides Cholesterol LDL Cholesterol Direct HDL Cholesterol Urine pH Urine WBC (Auto) Urine Creatinine Urine Total Protein Fluid Total Protein Vancomycin Trough Rheumatoid Factor Complement C4 Miscellaneous Test Crossmatch 09/09/16 09/09/16 09/09/16 05:41 11:55 14:13 WBC RBC Hgb Hct MCV MCH MCHC RDW Plt Count Lymph % (Auto) [place] % (Auto) Lymph # [place] # Baso # Seg Neutrophils % Seg Neuts % (Manual) Lymphocytes % (Manual) Monocytes % (Manual) Eosinophils % (Manual) Basophils % (Manual) Nucleated RBC % Seg Neutrophils # Seg Neutrophils # Man Lymphocytes # (Manual) Monocytes # (Manual) Eosinophils # (Manual) PT INR Fibrinogen dRVVT Confirm Interp Factor V Activity POC ABG pH POC ABG pCO2 POC ABG pO2 Sodium Potassium Chloride Carbon Dioxide BUN Creatinine Glucose POC Glucose 155 H 186 H Lactic Acid Calcium Phosphorus Magnesium Direct Bilirubin AST ALT Alkaline Phosphatase Lactate Dehydrogenase Troponin T C-Reactive Protein Total Protein Albumin Prealbumin Triglycerides Cholesterol LDL Cholesterol Direct HDL Cholesterol Urine pH Urine WBC (Auto) 25.0 H Urine Creatinine Urine Total Protein Fluid Total Protein Vancomycin Trough Rheumatoid Factor Complement C4 Miscellaneous Test Crossmatch 09/09/16 09/09/16 09/10/16 17:33 23:13 05:09 WBC RBC Hgb Hct MCV MCH MCHC RDW Plt Count Lymph % (Auto) [place] % (Auto) Lymph # [place] # Baso # Seg Neutrophils % Seg Neuts % (Manual) Lymphocytes % (Manual) Monocytes % (Manual) Eosinophils % (Manual) Basophils % (Manual) Nucleated RBC % Seg Neutrophils # Seg Neutrophils # Man Lymphocytes # (Manual) Monocytes # (Manual) Eosinophils # (Manual) PT INR Fibrinogen dRVVT Confirm Interp Factor V Activity POC ABG pH POC ABG pCO2 POC ABG pO2 74 L Sodium Potassium Chloride Carbon Dioxide BUN Creatinine Glucose POC Glucose 211 H 215 H Lactic Acid Calcium Phosphorus Magnesium Direct Bilirubin AST ALT Alkaline Phosphatase Lactate Dehydrogenase Troponin T C-Reactive Protein Total Protein Albumin Prealbumin Triglycerides Cholesterol LDL Cholesterol Direct HDL Cholesterol Urine pH Urine WBC (Auto) Urine Creatinine Urine Total Protein Fluid Total Protein Vancomycin Trough Rheumatoid Factor Complement C4 Miscellaneous Test Crossmatch 09/10/16 09/10/16 09/10/16 05:17 05:17 11:31 WBC 15.8 H RBC 3.25 L Hgb 7.3 L Hct 22.9 L MCV 71 L MCH 23 L MCHC RDW 18.4 H Plt Count Lymph % (Auto) [place] % (Auto) Lymph # [place] # Baso # Seg Neutrophils % Seg Neuts % (Manual) 91.0 H Lymphocytes % (Manual) 4.0 L Monocytes % (Manual) Eosinophils % (Manual) Basophils % (Manual) Nucleated RBC % Seg Neutrophils # Seg Neutrophils # Man 14.4 H Lymphocytes # (Manual) 0.6 L Monocytes # (Manual) Eosinophils # (Manual) PT INR Fibrinogen dRVVT Confirm Interp Factor V Activity POC ABG pH POC ABG pCO2 POC ABG pO2 Sodium Potassium Chloride Carbon Dioxide 21 L BUN 93 H Creatinine 2.9 H Glucose 146 H POC Glucose 188 H Lactic Acid Calcium 8.1 L Phosphorus Magnesium Direct Bilirubin AST ALT Alkaline Phosphatase Lactate Dehydrogenase Troponin T C-Reactive Protein Total Protein Albumin Prealbumin Triglycerides Cholesterol LDL Cholesterol Direct HDL Cholesterol Urine pH Urine WBC (Auto) Urine Creatinine Urine Total Protein Fluid Total Protein Vancomycin Trough Rheumatoid Factor Complement C4 Miscellaneous Test Crossmatch 09/10/16 09/10/16 09/10/16 13:17 17:20 23:32 WBC RBC Hgb Hct MCV MCH MCHC RDW Plt Count Lymph % (Auto) [place] % (Auto) Lymph # [place] # Baso # Seg Neutrophils % Seg Neuts % (Manual) Lymphocytes % (Manual) Monocytes % (Manual) Eosinophils % (Manual) Basophils % (Manual) Nucleated RBC % Seg Neutrophils # Seg Neutrophils # Man Lymphocytes # (Manual) Monocytes # (Manual) Eosinophils # (Manual) PT INR Fibrinogen dRVVT Confirm Interp Factor V Activity POC ABG pH POC ABG pCO2 POC ABG pO2 Sodium Potassium Chloride Carbon Dioxide BUN Creatinine Glucose POC Glucose 199 H 186 H Lactic Acid Calcium Phosphorus Magnesium Direct Bilirubin AST ALT Alkaline Phosphatase Lactate Dehydrogenase Troponin T C-Reactive Protein Total Protein Albumin Prealbumin Triglycerides Cholesterol LDL Cholesterol Direct HDL Cholesterol Urine pH Urine WBC (Auto) Urine Creatinine Urine Total Protein Fluid Total Protein Vancomycin Trough Rheumatoid Factor Complement C4 Miscellaneous Test Crossmatch See Detail 09/11/16 09/11/16 09/11/16 05:10 05:10 05:17 WBC 28.4 H RBC Hgb 9.2 L Hct 29.3 L D MCV 73 L MCH 23 L MCHC RDW 18.9 H Plt Count 452 H Lymph % (Auto) [place] % (Auto) Lymph # [place] # Baso # Seg Neutrophils % Seg Neuts % (Manual) 89.5 H Lymphocytes % (Manual) 2.0 L Monocytes % (Manual) Eosinophils % (Manual) Basophils % (Manual) Nucleated RBC % Seg Neutrophils # Seg Neutrophils # Man 25.4 H Lymphocytes # (Manual) 0.6 L Monocytes # (Manual) 1.3 H Eosinophils # (Manual) PT INR Fibrinogen dRVVT Confirm Interp Factor V Activity POC ABG pH POC ABG pCO2 POC ABG pO2 Sodium 136 L Potassium Chloride Carbon Dioxide 18 L BUN 107 H Creatinine 2.6 H Glucose 187 H POC Glucose 230 H Lactic Acid Calcium 8.3 L Phosphorus Magnesium Direct Bilirubin AST ALT Alkaline Phosphatase Lactate Dehydrogenase Troponin T C-Reactive Protein Total Protein Albumin Prealbumin Triglycerides Cholesterol LDL Cholesterol Direct HDL Cholesterol Urine pH Urine WBC (Auto) Urine Creatinine Urine Total Protein Fluid Total Protein Vancomycin Trough Rheumatoid Factor Complement C4 Miscellaneous Test Crossmatch 09/11/16 09/11/16 09/11/16 05:55 12:02 17:32 WBC RBC Hgb Hct MCV MCH MCHC RDW Plt Count Lymph % (Auto) [place] % (Auto) Lymph # [place] # Baso # Seg Neutrophils % Seg Neuts % (Manual) Lymphocytes % (Manual) Monocytes % (Manual) Eosinophils % (Manual) Basophils % (Manual) Nucleated RBC % Seg Neutrophils # Seg Neutrophils # Man Lymphocytes # (Manual) Monocytes # (Manual) Eosinophils # (Manual) PT INR Fibrinogen dRVVT Confirm Interp Factor V Activity POC ABG pH POC ABG pCO2 33.8 L POC ABG pO2 Sodium Potassium Chloride Carbon Dioxide BUN Creatinine Glucose POC Glucose 191 H 239 H Lactic Acid Calcium Phosphorus Magnesium Direct Bilirubin AST ALT Alkaline Phosphatase Lactate Dehydrogenase Troponin T C-Reactive Protein Total Protein Albumin Prealbumin Triglycerides Cholesterol LDL Cholesterol Direct HDL Cholesterol Urine pH Urine WBC (Auto) Urine Creatinine Urine Total Protein Fluid Total Protein Vancomycin Trough Rheumatoid Factor Complement C4 Miscellaneous Test Crossmatch 09/11/16 09/12/16 09/12/16 23:52 05:09 05:32 WBC RBC Hgb Hct MCV MCH MCHC RDW Plt Count Lymph % (Auto) [place] % (Auto) Lymph # [place] # Baso # Seg Neutrophils % Seg Neuts % (Manual) Lymphocytes % (Manual) Monocytes % (Manual) Eosinophils % (Manual) Basophils % (Manual) Nucleated RBC % Seg Neutrophils # Seg Neutrophils # Man Lymphocytes # (Manual) Monocytes # (Manual) Eosinophils # (Manual) PT INR Fibrinogen dRVVT Confirm Interp Factor V Activity POC ABG pH POC ABG pCO2 34.6 L POC ABG pO2 Sodium Potassium Chloride Carbon Dioxide BUN Creatinine Glucose POC Glucose 265 H 184 H Lactic Acid Calcium Phosphorus Magnesium Direct Bilirubin AST ALT Alkaline Phosphatase Lactate Dehydrogenase Troponin T C-Reactive Protein Total Protein Albumin Prealbumin Triglycerides Cholesterol LDL Cholesterol Direct HDL Cholesterol Urine pH Urine WBC (Auto) Urine Creatinine Urine Total Protein Fluid Total Protein Vancomycin Trough Rheumatoid Factor Complement C4 Miscellaneous Test Crossmatch 09/12/16 09/12/16 09/12/16 06:45 06:45 07:22 WBC 31.7 H RBC 3.54 L Hgb 8.3 L Hct 25.9 L MCV 73 L MCH 23 L MCHC RDW 18.9 H Plt Count Lymph % (Auto) [place] % (Auto) Lymph # [place] # Baso # Seg Neutrophils % Seg Neuts % (Manual) 88.5 H Lymphocytes % (Manual) 4.5 L Monocytes % (Manual) Eosinophils % (Manual) Basophils % (Manual) Nucleated RBC % Seg Neutrophils # Seg Neutrophils # Man 28.1 H Lymphocytes # (Manual) Monocytes # (Manual) 1.0 H Eosinophils # (Manual) PT INR Fibrinogen dRVVT Confirm Interp Factor V Activity POC ABG pH POC ABG pCO2 POC ABG pO2 Sodium Potassium Chloride Carbon Dioxide 20 L BUN 115 H Creatinine 2.7 H Glucose 165 H POC Glucose Lactic Acid Calcium 8.0 L Phosphorus Magnesium Direct Bilirubin AST ALT Alkaline Phosphatase Lactate Dehydrogenase Troponin T C-Reactive Protein Total Protein Albumin Prealbumin Triglycerides 217 H Cholesterol LDL Cholesterol Direct HDL Cholesterol Urine pH Urine WBC (Auto) Urine Creatinine Urine Total Protein Fluid Total Protein Vancomycin Trough Rheumatoid Factor Complement C4 Miscellaneous Test Crossmatch 09/12/16 09/12/16 09/12/16 07:22 09:59 12:21 WBC RBC Hgb Hct MCV MCH MCHC RDW Plt Count Lymph % (Auto) [place] % (Auto) Lymph # [place] # Baso # Seg Neutrophils % Seg Neuts % (Manual) Lymphocytes % (Manual) Monocytes % (Manual) Eosinophils % (Manual) Basophils % (Manual) Nucleated RBC % Seg Neutrophils # Seg Neutrophils # Man Lymphocytes # (Manual) Monocytes # (Manual) Eosinophils # (Manual) PT INR Fibrinogen dRVVT Confirm Interp Positive H Factor V Activity POC ABG pH POC ABG pCO2 POC ABG pO2 Sodium Potassium Chloride Carbon Dioxide BUN Creatinine Glucose POC Glucose 224 H Lactic Acid Calcium Phosphorus Magnesium Direct Bilirubin AST ALT Alkaline Phosphatase Lactate Dehydrogenase Troponin T C-Reactive Protein 1.70 H Total Protein Albumin Prealbumin Triglycerides Cholesterol LDL Cholesterol Direct HDL Cholesterol Urine pH Urine WBC (Auto) Urine Creatinine Urine Total Protein Fluid Total Protein Vancomycin Trough Rheumatoid Factor Complement C4 Miscellaneous Test Crossmatch 09/12/16 09/12/16 09/13/16 16:51 23:28 04:00 WBC 45.0 H* RBC Hgb 9.4 L Hct MCV 75 L MCH 23 L MCHC RDW 19.0 H Plt Count 470 H Lymph % (Auto) [place] % (Auto) Lymph # [place] # Baso # Seg Neutrophils % Seg Neuts % (Manual) 89.0 H Lymphocytes % (Manual) 5.0 L Monocytes % (Manual) Eosinophils % (Manual) Basophils % (Manual) Nucleated RBC % Seg Neutrophils # Seg Neutrophils # Man 40.1 H Lymphocytes # (Manual) Monocytes # (Manual) Eosinophils # (Manual) PT INR Fibrinogen dRVVT Confirm Interp Factor V Activity POC ABG pH POC ABG pCO2 POC ABG pO2 Sodium Potassium Chloride Carbon Dioxide BUN Creatinine Glucose POC Glucose 169 H 150 H Lactic Acid Calcium Phosphorus Magnesium Direct Bilirubin AST ALT Alkaline Phosphatase Lactate Dehydrogenase Troponin T C-Reactive Protein Total Protein Albumin Prealbumin Triglycerides Cholesterol LDL Cholesterol Direct HDL Cholesterol Urine pH Urine WBC (Auto) Urine Creatinine Urine Total Protein Fluid Total Protein Vancomycin Trough Rheumatoid Factor Complement C4 Miscellaneous Test Crossmatch 09/13/16 09/13/16 09/13/16 04:00 11:26 17:31 WBC RBC Hgb Hct MCV MCH MCHC RDW Plt Count Lymph % (Auto) [place] % (Auto) Lymph # [place] # Baso # Seg Neutrophils % Seg Neuts % (Manual) Lymphocytes % (Manual) Monocytes % (Manual) Eosinophils % (Manual) Basophils % (Manual) Nucleated RBC % Seg Neutrophils # Seg Neutrophils # Man Lymphocytes # (Manual) Monocytes # (Manual) Eosinophils # (Manual) PT INR Fibrinogen dRVVT Confirm Interp Factor V Activity POC ABG pH POC ABG pCO2 POC ABG pO2 Sodium Potassium Chloride Carbon Dioxide 20 L BUN 116 H Creatinine 3.0 H Glucose 172 H POC Glucose 140 H 183 H Lactic Acid Calcium Phosphorus Magnesium Direct Bilirubin AST ALT Alkaline Phosphatase Lactate Dehydrogenase Troponin T C-Reactive Protein Total Protein 6.2 L Albumin 2.9 L Prealbumin Triglycerides Cholesterol LDL Cholesterol Direct HDL Cholesterol Urine pH Urine WBC (Auto) Urine Creatinine Urine Total Protein Fluid Total Protein Vancomycin Trough Rheumatoid Factor Complement C4 Miscellaneous Test Crossmatch 09/13/16 09/14/16 09/14/16 23:23 04:06 04:07 WBC 29.4 H RBC Hgb 8.9 L Hct 27.3 L MCV 75 L MCH 24 L MCHC RDW 19.1 H Plt Count Lymph % (Auto) [place] % (Auto) Lymph # [place] # Baso # Seg Neutrophils % Seg Neuts % (Manual) 84.0 H Lymphocytes % (Manual) 6.0 L Monocytes % (Manual) 9.0 H Eosinophils % (Manual) Basophils % (Manual) Nucleated RBC % Seg Neutrophils # Seg Neutrophils # Man 24.7 H Lymphocytes # (Manual) Monocytes # (Manual) 2.6 H Eosinophils # (Manual) PT INR Fibrinogen dRVVT Confirm Interp Factor V Activity POC ABG pH 7.342 L POC ABG pCO2 POC ABG pO2 116 H Sodium Potassium Chloride Carbon Dioxide BUN Creatinine Glucose POC Glucose 154 H Lactic Acid Calcium Phosphorus Magnesium Direct Bilirubin AST ALT Alkaline Phosphatase Lactate Dehydrogenase Troponin T C-Reactive Protein Total Protein Albumin Prealbumin Triglycerides Cholesterol LDL Cholesterol Direct HDL Cholesterol Urine pH Urine WBC (Auto) Urine Creatinine Urine Total Protein Fluid Total Protein Vancomycin Trough Rheumatoid Factor Complement C4 Miscellaneous Test Crossmatch 09/14/16 09/14/16 09/14/16 04:07 05:29 12:19 WBC RBC Hgb Hct MCV MCH MCHC RDW Plt Count Lymph % (Auto) [place] % (Auto) Lymph # [place] # Baso # Seg Neutrophils % Seg Neuts % (Manual) Lymphocytes % (Manual) Monocytes % (Manual) Eosinophils % (Manual) Basophils % (Manual) Nucleated RBC % Seg Neutrophils # Seg Neutrophils # Man Lymphocytes # (Manual) Monocytes # (Manual) Eosinophils # (Manual) PT INR Fibrinogen dRVVT Confirm Interp Factor V Activity POC ABG pH POC ABG pCO2 POC ABG pO2 Sodium 136 L Potassium Chloride Carbon Dioxide 18 L BUN 121 H Creatinine 2.8 H Glucose 214 H POC Glucose 239 H 181 H Lactic Acid Calcium Phosphorus Magnesium Direct Bilirubin AST ALT Alkaline Phosphatase Lactate Dehydrogenase Troponin T C-Reactive Protein Total Protein Albumin Prealbumin Triglycerides Cholesterol LDL Cholesterol Direct HDL Cholesterol Urine pH Urine WBC (Auto) Urine Creatinine Urine Total Protein Fluid Total Protein Vancomycin Trough Rheumatoid Factor Complement C4 Miscellaneous Test Crossmatch 09/14/16 09/14/16 09/15/16 18:12 23:37 05:00 WBC 26.1 H RBC 3.05 L Hgb 7.2 L Hct 22.9 L MCV 75 L MCH 24 L MCHC RDW 19.0 H Plt Count Lymph % (Auto) [place] % (Auto) Lymph # [place] # Baso # Seg Neutrophils % Seg Neuts % (Manual) Lymphocytes % (Manual) Monocytes % (Manual) Eosinophils % (Manual) Basophils % (Manual) Nucleated RBC % Seg Neutrophils # Seg Neutrophils # Man Lymphocytes # (Manual) Monocytes # (Manual) Eosinophils # (Manual) PT INR Fibrinogen dRVVT Confirm Interp Factor V Activity POC ABG pH POC ABG pCO2 POC ABG pO2 Sodium Potassium Chloride Carbon Dioxide BUN Creatinine Glucose POC Glucose 266 H 154 H Lactic Acid Calcium Phosphorus Magnesium Direct Bilirubin AST ALT Alkaline Phosphatase Lactate Dehydrogenase Troponin T C-Reactive Protein Total Protein Albumin Prealbumin Triglycerides Cholesterol LDL Cholesterol Direct HDL Cholesterol Urine pH Urine WBC (Auto) Urine Creatinine Urine Total Protein Fluid Total Protein Vancomycin Trough Rheumatoid Factor Complement C4 Miscellaneous Test Crossmatch 09/15/16 09/15/16 09/15/16 05:00 05:17 12:45 WBC RBC Hgb Hct MCV MCH MCHC RDW Plt Count Lymph % (Auto) [place] % (Auto) Lymph # [place] # Baso # Seg Neutrophils % Seg Neuts % (Manual) Lymphocytes % (Manual) Monocytes % (Manual) Eosinophils % (Manual) Basophils % (Manual) Nucleated RBC % Seg Neutrophils # Seg Neutrophils # Man Lymphocytes # (Manual) Monocytes # (Manual) Eosinophils # (Manual) PT INR Fibrinogen dRVVT Confirm Interp Factor V Activity POC ABG pH POC ABG pCO2 POC ABG pO2 Sodium Potassium 5.2 H Chloride Carbon Dioxide 18 L BUN 139 H Creatinine 3.7 H Glucose 227 H POC Glucose 226 H 244 H Lactic Acid Calcium 8.3 L Phosphorus Magnesium Direct Bilirubin AST ALT Alkaline Phosphatase Lactate Dehydrogenase Troponin T C-Reactive Protein Total Protein Albumin Prealbumin Triglycerides Cholesterol LDL Cholesterol Direct HDL Cholesterol Urine pH Urine WBC (Auto) Urine Creatinine Urine Total Protein Fluid Total Protein Vancomycin Trough Rheumatoid Factor Complement C4 Miscellaneous Test Crossmatch 09/15/16 09/15/16 09/15/16 14:32 17:33 23:35 WBC RBC Hgb Hct MCV MCH MCHC RDW Plt Count Lymph % (Auto) [place] % (Auto) Lymph # [place] # Baso # Seg Neutrophils % Seg Neuts % (Manual) Lymphocytes % (Manual) Monocytes % (Manual) Eosinophils % (Manual) Basophils % (Manual) Nucleated RBC % Seg Neutrophils # Seg Neutrophils # Man Lymphocytes # (Manual) Monocytes # (Manual) Eosinophils # (Manual) PT INR Fibrinogen dRVVT Confirm Interp Factor V Activity POC ABG pH POC ABG pCO2 27.7 L POC ABG pO2 120 H Sodium Potassium Chloride Carbon Dioxide BUN Creatinine Glucose POC Glucose 232 H 167 H Lactic Acid Calcium Phosphorus Magnesium Direct Bilirubin AST ALT Alkaline Phosphatase Lactate Dehydrogenase Troponin T C-Reactive Protein Total Protein Albumin Prealbumin Triglycerides Cholesterol LDL Cholesterol Direct HDL Cholesterol Urine pH Urine WBC (Auto) Urine Creatinine Urine Total Protein Fluid Total Protein Vancomycin Trough Rheumatoid Factor Complement C4 Miscellaneous Test Crossmatch 09/16/16 09/16/16 09/16/16 03:58 10:27 10:27 WBC 19.0 H RBC 2.77 L Hgb 6.5 L Hct 20.9 L MCV 76 L MCH 23 L MCHC RDW 19.3 H Plt Count Lymph % (Auto) 11.[address] [place] % (Auto) Lymph # [place] # 1.1 H Baso # Seg Neutrophils % 82.5 H Seg Neuts % (Manual) Lymphocytes % (Manual) Monocytes % (Manual) Eosinophils % (Manual) Basophils % (Manual) Nucleated RBC % Seg Neutrophils # 15.7 H Seg Neutrophils # Man Lymphocytes # (Manual) Monocytes # (Manual) Eosinophils # (Manual) PT INR Fibrinogen dRVVT Confirm Interp Factor V Activity POC ABG pH POC ABG pCO2 POC ABG pO2 Sodium Potassium Chloride 109.3 H Carbon Dioxide 18 L BUN 139 H Creatinine 4.1 H Glucose 144 H POC Glucose 146 H Lactic Acid Calcium 8.1 L Phosphorus Magnesium Direct Bilirubin AST ALT Alkaline Phosphatase Lactate Dehydrogenase Troponin T C-Reactive Protein Total Protein Albumin Prealbumin Triglycerides Cholesterol LDL Cholesterol Direct HDL Cholesterol Urine pH Urine WBC (Auto) Urine Creatinine Urine Total Protein Fluid Total Protein Vancomycin Trough Rheumatoid Factor Complement C4 Miscellaneous Test Crossmatch 09/16/16 09/16/16 09/16/16 12:04 12:10 13:55 WBC RBC Hgb Hct MCV MCH MCHC RDW Plt Count Lymph % (Auto) [place] % (Auto) Lymph # [place] # Baso # Seg Neutrophils % Seg Neuts % (Manual) Lymphocytes % (Manual) Monocytes % (Manual) Eosinophils % (Manual) Basophils % (Manual) Nucleated RBC % Seg Neutrophils # Seg Neutrophils # Man Lymphocytes # (Manual) Monocytes # (Manual) Eosinophils # (Manual) PT INR Fibrinogen dRVVT Confirm Interp Factor V Activity POC ABG pH POC ABG pCO2 32.9 L POC ABG pO2 Sodium Potassium Chloride Carbon Dioxide BUN Creatinine Glucose POC Glucose 185 H Lactic Acid Calcium Phosphorus Magnesium Direct Bilirubin AST ALT Alkaline Phosphatase Lactate Dehydrogenase Troponin T C-Reactive Protein Total Protein Albumin Prealbumin Triglycerides Cholesterol LDL Cholesterol Direct HDL Cholesterol Urine pH Urine WBC (Auto) Urine Creatinine Urine Total Protein Fluid Total Protein Vancomycin Trough Rheumatoid Factor Complement C4 Miscellaneous Test Crossmatch See Detail 09/16/16 09/16/16 09/16/16 17:55 19:19 23:48 WBC RBC Hgb Hct MCV MCH MCHC RDW Plt Count Lymph % (Auto) [place] % (Auto) Lymph # [place] # Baso # Seg Neutrophils % Seg Neuts % (Manual) Lymphocytes % (Manual) Monocytes % (Manual) Eosinophils % (Manual) Basophils % (Manual) Nucleated RBC % Seg Neutrophils # Seg Neutrophils # Man Lymphocytes # (Manual) Monocytes # (Manual) Eosinophils # (Manual) PT INR Fibrinogen dRVVT Confirm Interp Factor V Activity POC ABG pH POC ABG pCO2 POC ABG pO2 Sodium Potassium Chloride Carbon Dioxide BUN Creatinine Glucose POC Glucose 222 H 107 H Lactic Acid Calcium Phosphorus Magnesium Direct Bilirubin AST ALT Alkaline Phosphatase Lactate Dehydrogenase Troponin T C-Reactive Protein Total Protein Albumin Prealbumin Triglycerides Cholesterol LDL Cholesterol Direct HDL Cholesterol Urine pH Urine WBC (Auto) Urine Creatinine 47.4 H Urine Total Protein 16 H Fluid Total Protein Vancomycin Trough Rheumatoid Factor Complement C4 Miscellaneous Test Crossmatch 09/17/16 09/17/16 09/17/16 03:45 03:45 04:55 WBC 19.6 H RBC 3.41 L Hgb 8.5 L Hct 26.7 L MCV 78 L MCH 25 L MCHC RDW 19.9 H Plt Count Lymph % (Auto) 9.[address] [place] % (Auto) Lymph # [place] # 1.2 H Baso # Seg Neutrophils % 83.9 H Seg Neuts % (Manual) Lymphocytes % (Manual) Monocytes % (Manual) Eosinophils % (Manual) Basophils % (Manual) Nucleated RBC % Seg Neutrophils # 16.4 H Seg Neutrophils # Man Lymphocytes # (Manual) Monocytes # (Manual) Eosinophils # (Manual) PT INR Fibrinogen dRVVT Confirm Interp Factor V Activity POC ABG pH POC ABG pCO2 POC ABG pO2 Sodium 146 H Potassium 5.1 H Chloride 110.9 H Carbon Dioxide 16 L BUN 146 H Creatinine 4.0 H Glucose 108 H POC Glucose 133 H Lactic Acid Calcium Phosphorus Magnesium 3.00 H Direct Bilirubin AST ALT Alkaline Phosphatase Lactate Dehydrogenase Troponin T C-Reactive Protein Total Protein Albumin Prealbumin Triglycerides Cholesterol LDL Cholesterol Direct HDL Cholesterol Urine pH Urine WBC (Auto) Urine Creatinine Urine Total Protein Fluid Total Protein Vancomycin Trough Rheumatoid Factor Complement C4 Miscellaneous Test Crossmatch 09/17/16 09/17/16 09/17/16 11:15 17:33 23:47 WBC RBC Hgb Hct MCV MCH MCHC RDW Plt Count Lymph % (Auto) [place] % (Auto) Lymph # [place] # Baso # Seg Neutrophils % Seg Neuts % (Manual) Lymphocytes % (Manual) Monocytes % (Manual) Eosinophils % (Manual) Basophils % (Manual) Nucleated RBC % Seg Neutrophils # Seg Neutrophils # Man Lymphocytes # (Manual) Monocytes # (Manual) Eosinophils # (Manual) PT INR Fibrinogen dRVVT Confirm Interp Factor V Activity POC ABG pH POC ABG pCO2 POC ABG pO2 Sodium Potassium Chloride Carbon Dioxide BUN Creatinine Glucose POC Glucose 176 H 246 H 148 H Lactic Acid Calcium Phosphorus Magnesium Direct Bilirubin AST ALT Alkaline Phosphatase Lactate Dehydrogenase Troponin T C-Reactive Protein Total Protein Albumin Prealbumin Triglycerides Cholesterol LDL Cholesterol Direct HDL Cholesterol Urine pH Urine WBC (Auto) Urine Creatinine Urine Total Protein Fluid Total Protein Vancomycin Trough Rheumatoid Factor Complement C4 Miscellaneous Test Crossmatch 09/18/16 09/18/16 09/18/16 05:33 08:31 08:31 WBC 18.0 H RBC 3.17 L Hgb 9.0 L Hct 25.7 L MCV MCH MCHC 35 H RDW 20.4 H Plt Count Lymph % (Auto) [place] % (Auto) Lymph # [place] # Baso # Seg Neutrophils % Seg Neuts % (Manual) Lymphocytes % (Manual) Monocytes % (Manual) Eosinophils % (Manual) Basophils % (Manual) Nucleated RBC % Seg Neutrophils # Seg Neutrophils # Man Lymphocytes # (Manual) Monocytes # (Manual) Eosinophils # (Manual) PT INR Fibrinogen dRVVT Confirm Interp Factor V Activity POC ABG pH POC ABG pCO2 POC ABG pO2 Sodium Potassium Chloride Carbon Dioxide 15 L BUN 124 H Creatinine 3.8 H Glucose POC Glucose 120 H Lactic Acid Calcium 8.1 L Phosphorus Magnesium Direct Bilirubin AST ALT Alkaline Phosphatase Lactate Dehydrogenase Troponin T C-Reactive Protein Total Protein Albumin Prealbumin Triglycerides Cholesterol LDL Cholesterol Direct HDL Cholesterol Urine pH Urine WBC (Auto) Urine Creatinine Urine Total Protein Fluid Total Protein Vancomycin Trough Rheumatoid Factor Complement C4 Miscellaneous Test Crossmatch 09/18/16 09/18/16 09/18/16 12:03 15:34 17:50 WBC RBC Hgb Hct MCV MCH MCHC RDW Plt Count Lymph % (Auto) [place] % (Auto) Lymph # [place] # Baso # Seg Neutrophils % Seg Neuts % (Manual) Lymphocytes % (Manual) Monocytes % (Manual) Eosinophils % (Manual) Basophils % (Manual) Nucleated RBC % Seg Neutrophils # Seg Neutrophils # Man Lymphocytes # (Manual) Monocytes # (Manual) Eosinophils # (Manual) PT INR Fibrinogen dRVVT Confirm Interp Factor V Activity POC ABG pH POC ABG pCO2 25.7 L POC ABG pO2 66 L Sodium Potassium Chloride Carbon Dioxide BUN Creatinine Glucose POC Glucose 156 H 220 H Lactic Acid Calcium Phosphorus Magnesium Direct Bilirubin AST ALT Alkaline Phosphatase Lactate Dehydrogenase Troponin T C-Reactive Protein Total Protein Albumin Prealbumin Triglycerides Cholesterol LDL Cholesterol Direct HDL Cholesterol Urine pH Urine WBC (Auto) Urine Creatinine Urine Total Protein Fluid Total Protein Vancomycin Trough Rheumatoid Factor Complement C4 Miscellaneous Test Crossmatch 09/19/16 09/19/16 09/19/16 06:21 09:50 09:50 WBC 17.1 H RBC 3.49 L Hgb 9.0 L Hct 28.1 L MCV MCH 26 L MCHC RDW 20.8 H Plt Count Lymph % (Auto) 11.[address] [place] % (Auto) 7.5 H Lymph # [place] # 1.3 H Baso # Seg Neutrophils % 79.8 H Seg Neuts % (Manual) Lymphocytes % (Manual) Monocytes % (Manual) Eosinophils % (Manual) Basophils % (Manual) Nucleated RBC % Seg Neutrophils # 13.7 H Seg Neutrophils # Man Lymphocytes # (Manual) Monocytes # (Manual) Eosinophils # (Manual) PT INR Fibrinogen dRVVT Confirm Interp Factor V Activity POC ABG pH POC ABG pCO2 POC ABG pO2 Sodium Potassium Chloride 108.6 H Carbon Dioxide 15 L BUN 125 H Creatinine 4.1 H Glucose 124 H POC Glucose 119 H Lactic Acid Calcium Phosphorus Magnesium Direct Bilirubin AST ALT Alkaline Phosphatase Lactate Dehydrogenase Troponin T C-Reactive Protein Total Protein Albumin Prealbumin Triglycerides Cholesterol LDL Cholesterol Direct HDL Cholesterol Urine pH Urine WBC (Auto) Urine Creatinine Urine Total Protein Fluid Total Protein Vancomycin Trough Rheumatoid Factor Complement C4 Miscellaneous Test Crossmatch 09/19/16 09/19/16 09/19/16 11:25 17:53 23:36 WBC RBC Hgb Hct MCV MCH MCHC RDW Plt Count Lymph % (Auto) [place] % (Auto) Lymph # [place] # Baso # Seg Neutrophils % Seg Neuts % (Manual) Lymphocytes % (Manual) Monocytes % (Manual) Eosinophils % (Manual) Basophils % (Manual) Nucleated RBC % Seg Neutrophils # Seg Neutrophils # Man Lymphocytes # (Manual) Monocytes # (Manual) Eosinophils # (Manual) PT INR Fibrinogen dRVVT Confirm Interp Factor V Activity POC ABG pH POC ABG pCO2 POC ABG pO2 Sodium Potassium Chloride Carbon Dioxide BUN Creatinine Glucose POC Glucose 160 H 245 H 121 H Lactic Acid Calcium Phosphorus Magnesium Direct Bilirubin AST ALT Alkaline Phosphatase Lactate Dehydrogenase Troponin T C-Reactive Protein Total Protein Albumin Prealbumin Triglycerides Cholesterol LDL Cholesterol Direct HDL Cholesterol Urine pH Urine WBC (Auto) Urine Creatinine Urine Total Protein Fluid Total Protein Vancomycin Trough Rheumatoid Factor Complement C4 Miscellaneous Test Crossmatch 09/20/16 09/20/16 09/20/16 04:10 04:10 04:10 WBC 17.0 H RBC 3.21 L Hgb 8.2 L Hct 25.5 L MCV MCH 26 L MCHC RDW 20.9 H Plt Count Lymph % (Auto) [place] % (Auto) Lymph # [place] # Baso # Seg Neutrophils % Seg Neuts % (Manual) Lymphocytes % (Manual) Monocytes % (Manual) Eosinophils % (Manual) Basophils % (Manual) Nucleated RBC % Seg Neutrophils # Seg Neutrophils # Man Lymphocytes # (Manual) Monocytes # (Manual) Eosinophils # (Manual) PT INR Fibrinogen dRVVT Confirm Interp Factor V Activity POC ABG pH POC ABG pCO2 POC ABG pO2 Sodium Potassium Chloride 111.0 H Carbon Dioxide 16 L BUN 129 H Creatinine 3.7 H Glucose 115 H POC Glucose Lactic Acid Calcium 8.2 L Phosphorus Magnesium Direct Bilirubin AST ALT Alkaline Phosphatase Lactate Dehydrogenase Troponin T C-Reactive Protein Total Protein Albumin Prealbumin Triglycerides 243 H Cholesterol LDL Cholesterol Direct HDL Cholesterol Urine pH Urine WBC (Auto) Urine Creatinine Urine Total Protein Fluid Total Protein Vancomycin Trough Rheumatoid Factor Complement C4 Miscellaneous Test Crossmatch 09/20/16 09/20/16 09/20/16 05:40 11:52 16:50 WBC RBC Hgb Hct MCV MCH MCHC RDW Plt Count Lymph % (Auto) [place] % (Auto) Lymph # [place] # Baso # Seg Neutrophils % Seg Neuts % (Manual) Lymphocytes % (Manual) Monocytes % (Manual) Eosinophils % (Manual) Basophils % (Manual) Nucleated RBC % Seg Neutrophils # Seg Neutrophils # Man Lymphocytes # (Manual) Monocytes # (Manual) Eosinophils # (Manual) PT INR Fibrinogen dRVVT Confirm Interp Factor V Activity POC ABG pH POC ABG pCO2 POC ABG pO2 Sodium Potassium Chloride Carbon Dioxide BUN Creatinine Glucose POC Glucose 131 H 183 H 236 H Lactic Acid Calcium Phosphorus Magnesium Direct Bilirubin AST ALT Alkaline Phosphatase Lactate Dehydrogenase Troponin T C-Reactive Protein Total Protein Albumin Prealbumin Triglycerides Cholesterol LDL Cholesterol Direct HDL Cholesterol Urine pH Urine WBC (Auto) Urine Creatinine Urine Total Protein Fluid Total Protein Vancomycin Trough Rheumatoid Factor Complement C4 Miscellaneous Test Crossmatch 09/20/16 09/21/16 09/21/16 23:51 03:30 04:44 WBC RBC Hgb Hct MCV MCH MCHC RDW Plt Count Lymph % (Auto) [place] % (Auto) Lymph # [place] # Baso # Seg Neutrophils % Seg Neuts % (Manual) Lymphocytes % (Manual) Monocytes % (Manual) Eosinophils % (Manual) Basophils % (Manual) Nucleated RBC % Seg Neutrophils # Seg Neutrophils # Man Lymphocytes # (Manual) Monocytes # (Manual) Eosinophils # (Manual) PT INR Fibrinogen dRVVT Confirm Interp Factor V Activity POC ABG pH POC ABG pCO2 POC ABG pO2 Sodium Potassium Chloride Carbon Dioxide BUN Creatinine Glucose POC Glucose 114 H 141 H Lactic Acid Calcium Phosphorus Magnesium 2.70 H Direct Bilirubin AST ALT Alkaline Phosphatase Lactate Dehydrogenase Troponin T C-Reactive Protein Total Protein Albumin Prealbumin Triglycerides Cholesterol LDL Cholesterol Direct HDL Cholesterol Urine pH Urine WBC (Auto) Urine Creatinine Urine Total Protein Fluid Total Protein Vancomycin Trough Rheumatoid Factor Complement C4 Miscellaneous Test Crossmatch 09/21/16 09/21/16 09/21/16 07:45 07:45 10:01 WBC 13.8 H RBC 2.94 L Hgb 7.5 L Hct 23.5 L MCV MCH 26 L MCHC RDW 21.2 H Plt Count Lymph % (Auto) 6.[address] [place] % (Auto) 9.4 H Lymph # 0.[address] [place] # 1.3 H Baso # Seg Neutrophils % 83.2 H Seg Neuts % (Manual) Lymphocytes % (Manual) Monocytes % (Manual) Eosinophils % (Manual) Basophils % (Manual) Nucleated RBC % Seg Neutrophils # 11.5 H Seg Neutrophils # Man Lymphocytes # (Manual) Monocytes # (Manual) Eosinophils # (Manual) PT INR Fibrinogen dRVVT Confirm Interp Factor V Activity POC ABG pH 7.308 L POC ABG pCO2 31.9 L POC ABG pO2 148 H Sodium 147 H Potassium Chloride 114.2 H Carbon Dioxide 15 L BUN 120 H Creatinine 3.9 H Glucose 156 H POC Glucose Lactic Acid Calcium 8.2 L Phosphorus Magnesium Direct Bilirubin AST ALT Alkaline Phosphatase Lactate Dehydrogenase Troponin T C-Reactive Protein Total Protein Albumin Prealbumin Triglycerides Cholesterol LDL Cholesterol Direct HDL Cholesterol Urine pH Urine WBC (Auto) Urine Creatinine Urine Total Protein Fluid Total Protein Vancomycin Trough Rheumatoid Factor Complement C4 Miscellaneous Test Crossmatch 09/21/16 09/21/16 09/21/16 12:00 12:03 13:00 WBC RBC Hgb Hct MCV MCH MCHC RDW Plt Count Lymph % (Auto) [place] % (Auto) Lymph # [place] # Baso # Seg Neutrophils % Seg Neuts % (Manual) Lymphocytes % (Manual) Monocytes % (Manual) Eosinophils % (Manual) Basophils % (Manual) Nucleated RBC % Seg Neutrophils # Seg Neutrophils # Man Lymphocytes # (Manual) Monocytes # (Manual) Eosinophils # (Manual) PT INR Fibrinogen dRVVT Confirm Interp Factor V Activity POC ABG pH POC ABG pCO2 POC ABG pO2 Sodium Potassium Chloride Carbon Dioxide BUN Creatinine Glucose POC Glucose 163 H Lactic Acid Calcium Phosphorus Magnesium Direct Bilirubin AST ALT Alkaline Phosphatase Lactate Dehydrogenase Troponin T C-Reactive Protein Total Protein Albumin Prealbumin Triglycerides Cholesterol LDL Cholesterol Direct HDL Cholesterol Urine pH Urine WBC (Auto) Urine Creatinine 54.8 H Urine Total Protein Fluid Total Protein Vancomycin Trough 2.3 L Rheumatoid Factor Complement C4 Miscellaneous Test Crossmatch 09/21/16 09/21/16 09/22/16 16:51 23:17 06:27 WBC RBC Hgb Hct MCV MCH MCHC RDW Plt Count Lymph % (Auto) [place] % (Auto) Lymph # [place] # Baso # Seg Neutrophils % Seg Neuts % (Manual) Lymphocytes % (Manual) Monocytes % (Manual) Eosinophils % (Manual) Basophils % (Manual) Nucleated RBC % Seg Neutrophils # Seg Neutrophils # Man Lymphocytes # (Manual) Monocytes # (Manual) Eosinophils # (Manual) PT INR Fibrinogen dRVVT Confirm Interp Factor V Activity POC ABG pH POC ABG pCO2 POC ABG pO2 Sodium Potassium Chloride Carbon Dioxide BUN Creatinine Glucose POC Glucose 206 H 114 H 115 H Lactic Acid Calcium Phosphorus Magnesium Direct Bilirubin AST ALT Alkaline Phosphatase Lactate Dehydrogenase Troponin T C-Reactive Protein Total Protein Albumin Prealbumin Triglycerides Cholesterol LDL Cholesterol Direct HDL Cholesterol Urine pH Urine WBC (Auto) Urine Creatinine Urine Total Protein Fluid Total Protein Vancomycin Trough Rheumatoid Factor Complement C4 Miscellaneous Test Crossmatch 09/22/16 09/22/16 09/22/16 07:50 07:50 12:00 WBC 17.8 H RBC 3.04 L Hgb 8.0 L Hct 24.7 L MCV MCH 26 L MCHC RDW 21.6 H Plt Count Lymph % (Auto) [place] % (Auto) Lymph # [place] # Baso # Seg Neutrophils % Seg Neuts % (Manual) Lymphocytes % (Manual) Monocytes % (Manual) Eosinophils % (Manual) Basophils % (Manual) Nucleated RBC % Seg Neutrophils # Seg Neutrophils # Man Lymphocytes # (Manual) Monocytes # (Manual) Eosinophils # (Manual) PT INR Fibrinogen dRVVT Confirm Interp Factor V Activity POC ABG pH POC ABG pCO2 POC ABG pO2 Sodium 150 H Potassium Chloride 118.2 H Carbon Dioxide 14 L BUN 111 H Creatinine 3.7 H Glucose 157 H POC Glucose 183 H Lactic Acid Calcium Phosphorus Magnesium Direct Bilirubin AST ALT Alkaline Phosphatase Lactate Dehydrogenase Troponin T C-Reactive Protein Total Protein Albumin Prealbumin Triglycerides Cholesterol LDL Cholesterol Direct HDL Cholesterol Urine pH Urine WBC (Auto) Urine Creatinine Urine Total Protein Fluid Total Protein Vancomycin Trough Rheumatoid Factor Complement C4 Miscellaneous Test Crossmatch 09/22/16 09/22/16 09/23/16 17:29 23:10 05:00 WBC 19.2 H RBC 3.13 L Hgb 8.0 L Hct 25.2 L MCV MCH 26 L MCHC RDW 22.1 H Plt Count Lymph % (Auto) [place] % (Auto) Lymph # [place] # Baso # Seg Neutrophils % Seg Neuts % (Manual) 92.0 H Lymphocytes % (Manual) 3.0 L Monocytes % (Manual) Eosinophils % (Manual) Basophils % (Manual) Nucleated RBC % Seg Neutrophils # Seg Neutrophils # Man 17.7 H Lymphocytes # (Manual) 0.6 L Monocytes # (Manual) Eosinophils # (Manual) PT INR Fibrinogen dRVVT Confirm Interp Factor V Activity POC ABG pH POC ABG pCO2 POC ABG pO2 Sodium Potassium Chloride Carbon Dioxide BUN Creatinine Glucose POC Glucose 197 H 169 H Lactic Acid Calcium Phosphorus Magnesium Direct Bilirubin AST ALT Alkaline Phosphatase Lactate Dehydrogenase Troponin T C-Reactive Protein Total Protein Albumin Prealbumin Triglycerides Cholesterol LDL Cholesterol Direct HDL Cholesterol Urine pH Urine WBC (Auto) Urine Creatinine Urine Total Protein Fluid Total Protein Vancomycin Trough Rheumatoid Factor Complement C4 Miscellaneous Test Crossmatch 09/23/16 09/23/16 09/23/16 05:00 05:00 05:10 WBC RBC Hgb Hct MCV MCH MCHC RDW Plt Count Lymph % (Auto) [place] % (Auto) Lymph # [place] # Baso # Seg Neutrophils % Seg Neuts % (Manual) Lymphocytes % (Manual) Monocytes % (Manual) Eosinophils % (Manual) Basophils % (Manual) Nucleated RBC % Seg Neutrophils # Seg Neutrophils # Man Lymphocytes # (Manual) Monocytes # (Manual) Eosinophils # (Manual) PT INR Fibrinogen dRVVT Confirm Interp Factor V Activity POC ABG pH POC ABG pCO2 POC ABG pO2 Sodium 147 H Potassium 3.2 L Chloride 115.7 H Carbon Dioxide 13 L BUN 111 H Creatinine 3.8 H Glucose 194 H POC Glucose 188 H Lactic Acid Calcium 7.3 L D Phosphorus Magnesium Direct Bilirubin AST ALT Alkaline Phosphatase Lactate Dehydrogenase Troponin T C-Reactive Protein 3.20 H Total Protein Albumin Prealbumin Triglycerides Cholesterol LDL Cholesterol Direct HDL Cholesterol Urine pH Urine WBC (Auto) Urine Creatinine Urine Total Protein Fluid Total Protein Vancomycin Trough Rheumatoid Factor Complement C4 Miscellaneous Test Crossmatch 09/23/16 09/23/16 09/23/16 11:37 12:29 18:01 WBC RBC Hgb Hct MCV MCH MCHC RDW Plt Count Lymph % (Auto) [place] % (Auto) Lymph # [place] # Baso # Seg Neutrophils % Seg Neuts % (Manual) Lymphocytes % (Manual) Monocytes % (Manual) Eosinophils % (Manual) Basophils % (Manual) Nucleated RBC % Seg Neutrophils # Seg Neutrophils # Man Lymphocytes # (Manual) Monocytes # (Manual) Eosinophils # (Manual) PT INR Fibrinogen dRVVT Confirm Interp Factor V Activity POC ABG pH POC ABG pCO2 18.9 L POC ABG pO2 143 H Sodium Potassium Chloride Carbon Dioxide BUN Creatinine Glucose POC Glucose 153 H 108 H Lactic Acid Calcium Phosphorus Magnesium Direct Bilirubin AST ALT Alkaline Phosphatase Lactate Dehydrogenase Troponin T C-Reactive Protein Total Protein Albumin Prealbumin Triglycerides Cholesterol LDL Cholesterol Direct HDL Cholesterol Urine pH Urine WBC (Auto) Urine Creatinine Urine Total Protein Fluid Total Protein Vancomycin Trough Rheumatoid Factor Complement C4 Miscellaneous Test Crossmatch 09/23/16 09/23/16 09/24/16 21:19 23:43 05:16 WBC RBC Hgb Hct MCV MCH MCHC RDW Plt Count Lymph % (Auto) [place] % (Auto) Lymph # [place] # Baso # Seg Neutrophils % Seg Neuts % (Manual) Lymphocytes % (Manual) Monocytes % (Manual) Eosinophils % (Manual) Basophils % (Manual) Nucleated RBC % Seg Neutrophils # Seg Neutrophils # Man Lymphocytes # (Manual) Monocytes # (Manual) Eosinophils # (Manual) PT INR Fibrinogen dRVVT Confirm Interp Factor V Activity POC ABG pH POC ABG pCO2 17.3 L POC ABG pO2 112 H Sodium Potassium Chloride Carbon Dioxide BUN Creatinine Glucose POC Glucose 143 H 164 H Lactic Acid Calcium Phosphorus Magnesium Direct Bilirubin AST ALT Alkaline Phosphatase Lactate Dehydrogenase Troponin T C-Reactive Protein Total Protein Albumin Prealbumin Triglycerides Cholesterol LDL Cholesterol Direct HDL Cholesterol Urine pH Urine WBC (Auto) Urine Creatinine Urine Total Protein Fluid Total Protein Vancomycin Trough Rheumatoid Factor Complement C4 Miscellaneous Test Crossmatch 09/24/16 09/24/16 09/24/16 05:21 11:58 17:06 WBC RBC Hgb Hct MCV MCH MCHC RDW Plt Count Lymph % (Auto) [place] % (Auto) Lymph # [place] # Baso # Seg Neutrophils % Seg Neuts % (Manual) Lymphocytes % (Manual) Monocytes % (Manual) Eosinophils % (Manual) Basophils % (Manual) Nucleated RBC % Seg Neutrophils # Seg Neutrophils # Man Lymphocytes # (Manual) Monocytes # (Manual) Eosinophils # (Manual) PT INR Fibrinogen dRVVT Confirm Interp Factor V Activity POC ABG pH POC ABG pCO2 POC ABG pO2 Sodium Potassium Chloride Carbon Dioxide 10 L BUN 103 H Creatinine 4.3 H Glucose 163 H POC Glucose 173 H 167 H Lactic Acid Calcium 6.5 L Phosphorus Magnesium Direct Bilirubin AST ALT Alkaline Phosphatase Lactate Dehydrogenase Troponin T C-Reactive Protein Total Protein Albumin Prealbumin Triglycerides Cholesterol LDL Cholesterol Direct HDL Cholesterol Urine pH Urine WBC (Auto) Urine Creatinine Urine Total Protein Fluid Total Protein Vancomycin Trough Rheumatoid Factor Complement C4 Miscellaneous Test Crossmatch 09/24/16 09/24/16 09/24/16 20:15 21:02 23:48 WBC RBC Hgb Hct MCV MCH MCHC RDW Plt Count Lymph % (Auto) [place] % (Auto) Lymph # [place] # Baso # Seg Neutrophils % Seg Neuts % (Manual) Lymphocytes % (Manual) Monocytes % (Manual) Eosinophils % (Manual) Basophils % (Manual) Nucleated RBC % Seg Neutrophils # Seg Neutrophils # Man Lymphocytes # (Manual) Monocytes # (Manual) Eosinophils # (Manual) PT INR Fibrinogen dRVVT Confirm Interp Factor V Activity POC ABG pH 7.288 L POC ABG pCO2 30.2 L 21.5 L POC ABG pO2 32 L 39 L Sodium Potassium Chloride Carbon Dioxide BUN Creatinine Glucose POC Glucose 109 H Lactic Acid Calcium Phosphorus Magnesium Direct Bilirubin AST ALT Alkaline Phosphatase Lactate Dehydrogenase Troponin T C-Reactive Protein Total Protein Albumin Prealbumin Triglycerides Cholesterol LDL Cholesterol Direct HDL Cholesterol Urine pH Urine WBC (Auto) Urine Creatinine Urine Total Protein Fluid Total Protein Vancomycin Trough Rheumatoid Factor Complement C4 Miscellaneous Test Crossmatch 09/25/16 09/25/16 09/25/16 04:20 04:20 04:20 WBC RBC 2.58 L Hgb 7.0 L Hct 21.0 L MCV MCH 27 L MCHC RDW 23.8 H Plt Count Lymph % (Auto) [place] % (Auto) Lymph # [place] # Baso # Seg Neutrophils % Seg Neuts % (Manual) Lymphocytes % (Manual) 12.0 L Monocytes % (Manual) Eosinophils % (Manual) 7.0 H Basophils % (Manual) 2.0 H Nucleated RBC % Seg Neutrophils # Seg Neutrophils # Man Lymphocytes # (Manual) 0.9 L Monocytes # (Manual) Eosinophils # (Manual) 0.5 H PT INR Fibrinogen dRVVT Confirm Interp Factor V Activity POC ABG pH POC ABG pCO2 POC ABG pO2 Sodium Potassium Chloride Carbon Dioxide 15 L BUN 72 H Creatinine 3.8 H Glucose POC Glucose Lactic Acid Calcium 6.0 L Phosphorus 4.60 H Magnesium 1.60 L Direct Bilirubin AST ALT Alkaline Phosphatase Lactate Dehydrogenase Troponin T C-Reactive Protein Total Protein Albumin Prealbumin Triglycerides Cholesterol LDL Cholesterol Direct HDL Cholesterol Urine pH Urine WBC (Auto) Urine Creatinine Urine Total Protein Fluid Total Protein Vancomycin Trough Rheumatoid Factor Complement C4 Miscellaneous Test Crossmatch 09/25/16 09/25/16 09/25/16 04:57 08:02 10:30 WBC RBC Hgb Hct MCV MCH MCHC RDW Plt Count Lymph % (Auto) [place] % (Auto) Lymph # [place] # Baso # Seg Neutrophils % Seg Neuts % (Manual) Lymphocytes % (Manual) Monocytes % (Manual) Eosinophils % (Manual) Basophils % (Manual) Nucleated RBC % Seg Neutrophils # Seg Neutrophils # Man Lymphocytes # (Manual) Monocytes # (Manual) Eosinophils # (Manual) PT INR Fibrinogen dRVVT Confirm Interp Factor V Activity POC ABG pH POC ABG pCO2 24.7 L POC ABG pO2 152 H Sodium Potassium Chloride Carbon Dioxide BUN Creatinine Glucose POC Glucose 113 H Lactic Acid Calcium Phosphorus Magnesium Direct Bilirubin AST ALT Alkaline Phosphatase Lactate Dehydrogenase Troponin T C-Reactive Protein Total Protein Albumin Prealbumin Triglycerides Cholesterol LDL Cholesterol Direct HDL Cholesterol Urine pH Urine WBC (Auto) Urine Creatinine Urine Total Protein Fluid Total Protein Vancomycin Trough Rheumatoid Factor Complement C4 Miscellaneous Test Crossmatch See Detail 09/25/16 09/25/16 09/25/16 12:05 17:44 23:47 WBC RBC Hgb Hct MCV MCH MCHC RDW Plt Count Lymph % (Auto) [place] % (Auto) Lymph # [place] # Baso # Seg Neutrophils % Seg Neuts % (Manual) Lymphocytes % (Manual) Monocytes % (Manual) Eosinophils % (Manual) Basophils % (Manual) Nucleated RBC % Seg Neutrophils # Seg Neutrophils # Man Lymphocytes # (Manual) Monocytes # (Manual) Eosinophils # (Manual) PT INR Fibrinogen dRVVT Confirm Interp Factor V Activity POC ABG pH POC ABG pCO2 POC ABG pO2 Sodium Potassium Chloride Carbon Dioxide BUN Creatinine Glucose POC Glucose 117 H 119 H 150 H Lactic Acid Calcium Phosphorus Magnesium Direct Bilirubin AST ALT Alkaline Phosphatase Lactate Dehydrogenase Troponin T C-Reactive Protein Total Protein Albumin Prealbumin Triglycerides Cholesterol LDL Cholesterol Direct HDL Cholesterol Urine pH Urine WBC (Auto) Urine Creatinine Urine Total Protein Fluid Total Protein Vancomycin Trough Rheumatoid Factor Complement C4 Miscellaneous Test Crossmatch 09/26/16 09/26/16 09/26/16 04:25 04:25 04:25 WBC RBC 2.65 L Hgb 7.4 L Hct 21.6 L MCV MCH MCHC RDW 22.5 H Plt Count Lymph % (Auto) [place] % (Auto) Lymph # [place] # Baso # Seg Neutrophils % Seg Neuts % (Manual) Lymphocytes % (Manual) 6.0 L Monocytes % (Manual) Eosinophils % (Manual) 11.0 H Basophils % (Manual) Nucleated RBC % Seg Neutrophils # Seg Neutrophils # Man Lymphocytes # (Manual) 0.4 L Monocytes # (Manual) Eosinophils # (Manual) 0.6 H PT INR Fibrinogen dRVVT Confirm Interp Factor V Activity POC ABG pH POC ABG pCO2 POC ABG pO2 Sodium Potassium Chloride 97.0 L Carbon Dioxide 19 L BUN 43 H Creatinine 2.6 H Glucose 130 H POC Glucose Lactic Acid 4.40 H* Calcium 6.7 L Phosphorus Magnesium Direct Bilirubin AST ALT Alkaline Phosphatase Lactate Dehydrogenase Troponin T C-Reactive Protein Total Protein Albumin Prealbumin Triglycerides Cholesterol LDL Cholesterol Direct HDL Cholesterol Urine pH Urine WBC (Auto) Urine Creatinine Urine Total Protein Fluid Total Protein Vancomycin Trough Rheumatoid Factor Complement C4 Miscellaneous Test Crossmatch 09/26/16 09/26/16 09/26/16 05:20 11:44 12:12 WBC RBC Hgb Hct MCV MCH MCHC RDW Plt Count Lymph % (Auto) [place] % (Auto) Lymph # [place] # Baso # Seg Neutrophils % Seg Neuts % (Manual) Lymphocytes % (Manual) Monocytes % (Manual) Eosinophils % (Manual) Basophils % (Manual) Nucleated RBC % Seg Neutrophils # Seg Neutrophils # Man Lymphocytes # (Manual) Monocytes # (Manual) Eosinophils # (Manual) PT INR Fibrinogen dRVVT Confirm Interp Factor V Activity POC ABG pH POC ABG pCO2 27.0 L POC ABG pO2 69 L Sodium Potassium Chloride Carbon Dioxide BUN Creatinine Glucose POC Glucose 121 H 128 H Lactic Acid Calcium Phosphorus Magnesium Direct Bilirubin AST ALT Alkaline Phosphatase Lactate Dehydrogenase Troponin T C-Reactive Protein Total Protein Albumin Prealbumin Triglycerides Cholesterol LDL Cholesterol Direct HDL Cholesterol Urine pH Urine WBC (Auto) Urine Creatinine Urine Total Protein Fluid Total Protein Vancomycin Trough Rheumatoid Factor Complement C4 Miscellaneous Test Crossmatch 09/26/16 09/26/16 09/27/16 18:31 23:40 08:20 WBC RBC Hgb Hct MCV MCH MCHC RDW Plt Count Lymph % (Auto) [place] % (Auto) Lymph # [place] # Baso # Seg Neutrophils % Seg Neuts % (Manual) Lymphocytes % (Manual) Monocytes % (Manual) Eosinophils % (Manual) Basophils % (Manual) Nucleated RBC % Seg Neutrophils # Seg Neutrophils # Man Lymphocytes # (Manual) Monocytes # (Manual) Eosinophils # (Manual) PT INR Fibrinogen dRVVT Confirm Interp Factor V Activity POC ABG pH POC ABG pCO2 POC ABG pO2 Sodium Potassium Chloride Carbon Dioxide BUN Creatinine Glucose POC Glucose 120 H 133 H Lactic Acid 4.10 H* Calcium Phosphorus Magnesium Direct Bilirubin AST ALT Alkaline Phosphatase Lactate Dehydrogenase Troponin T C-Reactive Protein Total Protein Albumin Prealbumin Triglycerides Cholesterol LDL Cholesterol Direct HDL Cholesterol Urine pH Urine WBC (Auto) Urine Creatinine Urine Total Protein Fluid Total Protein Vancomycin Trough Rheumatoid Factor Complement C4 Miscellaneous Test Crossmatch 09/27/16 09/27/16 09/27/16 11:23 15:00 18:15 WBC RBC Hgb Hct MCV MCH MCHC RDW Plt Count Lymph % (Auto) [place] % (Auto) Lymph # [place] # Baso # Seg Neutrophils % Seg Neuts % (Manual) Lymphocytes % (Manual) Monocytes % (Manual) Eosinophils % (Manual) Basophils % (Manual) Nucleated RBC % Seg Neutrophils # Seg Neutrophils # Man Lymphocytes # (Manual) Monocytes # (Manual) Eosinophils # (Manual) PT INR Fibrinogen dRVVT Confirm Interp Factor V Activity POC ABG pH 7.459 H POC ABG pCO2 27.1 L POC ABG pO2 140 H Sodium Potassium Chloride Carbon Dioxide BUN Creatinine Glucose POC Glucose 114 H 127 H Lactic Acid Calcium Phosphorus Magnesium Direct Bilirubin AST ALT Alkaline Phosphatase Lactate Dehydrogenase Troponin T C-Reactive Protein Total Protein Albumin Prealbumin Triglycerides Cholesterol LDL Cholesterol Direct HDL Cholesterol Urine pH Urine WBC (Auto) Urine Creatinine Urine Total Protein Fluid Total Protein Vancomycin Trough Rheumatoid Factor Complement C4 Miscellaneous Test Crossmatch 09/27/16 09/27/16 09/28/16 Unknown Unknown 03:45 WBC RBC 2.49 L Hgb 6.8 L Hct 20.7 L MCV MCH 27 L MCHC RDW 22.1 H Plt Count Lymph % (Auto) [place] % (Auto) Lymph # [place] # Baso # Seg Neutrophils % Seg Neuts % (Manual) 32.0 L Lymphocytes % (Manual) 12.0 L Monocytes % (Manual) 11.0 H Eosinophils % (Manual) 10.0 H Basophils % (Manual) Nucleated RBC % Seg Neutrophils # Seg Neutrophils # Man Lymphocytes # (Manual) 1.0 L Monocytes # (Manual) 0.9 H Eosinophils # (Manual) 0.8 H PT INR Fibrinogen dRVVT Confirm Interp Factor V Activity POC ABG pH POC ABG pCO2 POC ABG pO2 Sodium 135 L 135 L Potassium 3.5 L Chloride 93.6 L 94.4 L Carbon Dioxide 17 L 21 L BUN 45 H 28 H Creatinine 3.3 H 2.5 H Glucose 106 H POC Glucose Lactic Acid Calcium 7.3 L 7.1 L Phosphorus Magnesium Direct Bilirubin AST ALT Alkaline Phosphatase Lactate Dehydrogenase Troponin T C-Reactive Protein Total Protein Albumin Prealbumin Triglycerides Cholesterol LDL Cholesterol Direct HDL Cholesterol Urine pH Urine WBC (Auto) Urine Creatinine Urine Total Protein Fluid Total Protein Vancomycin Trough Rheumatoid Factor Complement C4 Miscellaneous Test Crossmatch 09/28/16 09/28/16 09/28/16 03:45 07:25 11:58 WBC 13.3 H RBC 3.01 L Hgb 8.4 L Hct 25.0 L MCV MCH MCHC RDW 20.5 H Plt Count 128 L Lymph % (Auto) [place] % (Auto) Lymph # [place] # Baso # Seg Neutrophils % Seg Neuts % (Manual) Lymphocytes % (Manual) 7.0 L Monocytes % (Manual) Eosinophils % (Manual) 6.0 H Basophils % (Manual) Nucleated RBC % Seg Neutrophils # Seg Neutrophils # Man Lymphocytes # (Manual) 0.9 L Monocytes # (Manual) Eosinophils # (Manual) 0.8 H PT INR Fibrinogen dRVVT Confirm Interp Factor V Activity POC ABG pH POC ABG pCO2 POC ABG pO2 Sodium Potassium Chloride Carbon Dioxide BUN Creatinine Glucose POC Glucose 121 H Lactic Acid 4.50 H* Calcium Phosphorus Magnesium Direct Bilirubin AST ALT Alkaline Phosphatase Lactate Dehydrogenase Troponin T C-Reactive Protein Total Protein Albumin Prealbumin Triglycerides Cholesterol LDL Cholesterol Direct HDL Cholesterol Urine pH Urine WBC (Auto) Urine Creatinine Urine Total Protein Fluid Total Protein Vancomycin Trough Rheumatoid Factor Complement C4 Miscellaneous Test Crossmatch 09/29/16 09/29/16 09/29/16 06:45 06:45 06:45 WBC 14.9 H RBC 2.74 L Hgb 7.6 L Hct 23.2 L MCV MCH MCHC RDW 20.5 H Plt Count 81 L Lymph % (Auto) [place] % (Auto) Lymph # [place] # Baso # Seg Neutrophils % Seg Neuts % (Manual) 81.0 H Lymphocytes % (Manual) 4.0 L Monocytes % (Manual) Eosinophils % (Manual) Basophils % (Manual) Nucleated RBC % Seg Neutrophils # Seg Neutrophils # Man 12.1 H Lymphocytes # (Manual) 0.6 L Monocytes # (Manual) Eosinophils # (Manual) PT INR Fibrinogen dRVVT Confirm Interp Factor V Activity POC ABG pH POC ABG pCO2 POC ABG pO2 Sodium 133 L Potassium 3.4 L Chloride 92.5 L Carbon Dioxide 21 L BUN 33 H Creatinine 3.0 H Glucose POC Glucose Lactic Acid Calcium 6.6 L Phosphorus Magnesium 1.40 L Direct Bilirubin 0.9 H AST ALT Alkaline Phosphatase Lactate Dehydrogenase Troponin T C-Reactive Protein Total Protein 4.3 L Albumin 1.3 L Prealbumin Triglycerides Cholesterol LDL Cholesterol Direct HDL Cholesterol Urine pH Urine WBC (Auto) Urine Creatinine Urine Total Protein Fluid Total Protein Vancomycin Trough Rheumatoid Factor Complement C4 Miscellaneous Test Crossmatch 09/29/16 09/29/16 09/30/16 17:52 20:12 00:07 WBC RBC Hgb Hct MCV MCH MCHC RDW Plt Count Lymph % (Auto) [place] % (Auto) Lymph # [place] # Baso # Seg Neutrophils % Seg Neuts % (Manual) Lymphocytes % (Manual) Monocytes % (Manual) Eosinophils % (Manual) Basophils % (Manual) Nucleated RBC % Seg Neutrophils # Seg Neutrophils # Man Lymphocytes # (Manual) Monocytes # (Manual) Eosinophils # (Manual) PT INR Fibrinogen dRVVT Confirm Interp Factor V Activity POC ABG pH POC ABG pCO2 POC ABG pO2 Sodium Potassium Chloride Carbon Dioxide BUN Creatinine Glucose POC Glucose 50 L 51 L Lactic Acid Calcium Phosphorus Magnesium Direct Bilirubin AST ALT Alkaline Phosphatase Lactate Dehydrogenase Troponin T 0.204 H* C-Reactive Protein Total Protein Albumin Prealbumin Triglycerides Cholesterol 31 L LDL Cholesterol Direct 4 L HDL Cholesterol 3 L Urine pH Urine WBC (Auto) Urine Creatinine Urine Total Protein Fluid Total Protein Vancomycin Trough Rheumatoid Factor Complement C4 Miscellaneous Test Crossmatch 09/30/16 09/30/16 09/30/16 01:30 05:15 06:10 WBC RBC Hgb Hct MCV MCH MCHC RDW Plt Count Lymph % (Auto) [place] % (Auto) Lymph # [place] # Baso # Seg Neutrophils % Seg Neuts % (Manual) Lymphocytes % (Manual) Monocytes % (Manual) Eosinophils % (Manual) Basophils % (Manual) Nucleated RBC % Seg Neutrophils # Seg Neutrophils # Man Lymphocytes # (Manual) Monocytes # (Manual) Eosinophils # (Manual) PT INR Fibrinogen dRVVT Confirm Interp Factor V Activity POC ABG pH POC ABG pCO2 POC ABG pO2 Sodium 133 L Potassium 3.2 L Chloride 93.2 L Carbon Dioxide 19 L BUN 36 H Creatinine 3.2 H Glucose 104 H POC Glucose 167 H 146 H Lactic Acid Calcium 6.4 L Phosphorus Magnesium 1.60 L Direct Bilirubin AST ALT Alkaline Phosphatase Lactate Dehydrogenase Troponin T C-Reactive Protein Total Protein Albumin Prealbumin Triglycerides Cholesterol LDL Cholesterol Direct HDL Cholesterol Urine pH Urine WBC (Auto) Urine Creatinine Urine Total Protein Fluid Total Protein Vancomycin Trough Rheumatoid Factor Complement C4 Miscellaneous Test Crossmatch 09/30/16 09/30/16 09/30/16 11:26 13:39 18:38 WBC RBC Hgb Hct MCV MCH MCHC RDW Plt Count Lymph % (Auto) [place] % (Auto) Lymph # [place] # Baso # Seg Neutrophils % Seg Neuts % (Manual) Lymphocytes % (Manual) Monocytes % (Manual) Eosinophils % (Manual) Basophils % (Manual) Nucleated RBC % Seg Neutrophils # Seg Neutrophils # Man Lymphocytes # (Manual) Monocytes # (Manual) Eosinophils # (Manual) PT INR Fibrinogen dRVVT Confirm Interp Factor V Activity POC ABG pH 7.479 H POC ABG pCO2 29.8 L POC ABG pO2 117 H Sodium Potassium Chloride Carbon Dioxide BUN Creatinine Glucose POC Glucose 140 H 122 H Lactic Acid Calcium Phosphorus Magnesium Direct Bilirubin AST ALT Alkaline Phosphatase Lactate Dehydrogenase Troponin T C-Reactive Protein Total Protein Albumin Prealbumin Triglycerides Cholesterol LDL Cholesterol Direct HDL Cholesterol Urine pH Urine WBC (Auto) Urine Creatinine Urine Total Protein Fluid Total Protein Vancomycin Trough Rheumatoid Factor Complement C4 Miscellaneous Test Crossmatch 10/01/16 10/01/16 10/01/16 06:00 06:00 12:37 WBC 12.6 H RBC 2.75 L Hgb 7.3 L Hct 23.3 L MCV MCH 27 L MCHC RDW 20.6 H Plt Count 72 L Lymph % (Auto) [place] % (Auto) Lymph # [place] # Baso # Seg Neutrophils % Seg Neuts % (Manual) 31.0 L Lymphocytes % (Manual) 8.0 L Monocytes % (Manual) Eosinophils % (Manual) Basophils % (Manual) Nucleated RBC % 3.0 H Seg Neutrophils # Seg Neutrophils # Man Lymphocytes # (Manual) 1.0 L Monocytes # (Manual) Eosinophils # (Manual) PT INR Fibrinogen dRVVT Confirm Interp Factor V Activity POC ABG pH POC ABG pCO2 POC ABG pO2 Sodium 127 L Potassium Chloride 86.8 L Carbon Dioxide 20 L BUN 42 H Creatinine 3.5 H Glucose POC Glucose 65 L Lactic Acid Calcium 7.0 L Phosphorus Magnesium Direct Bilirubin AST ALT Alkaline Phosphatase Lactate Dehydrogenase Troponin T C-Reactive Protein Total Protein Albumin Prealbumin Triglycerides Cholesterol LDL Cholesterol Direct HDL Cholesterol Urine pH Urine WBC (Auto) Urine Creatinine Urine Total Protein Fluid Total Protein Vancomycin Trough Rheumatoid Factor Complement C4 Miscellaneous Test Crossmatch 10/01/16 10/01/16 10/02/16 17:39 23:32 00:59 WBC RBC Hgb Hct MCV MCH MCHC RDW Plt Count Lymph % (Auto) [place] % (Auto) Lymph # [place] # Baso # Seg Neutrophils % Seg Neuts % (Manual) Lymphocytes % (Manual) Monocytes % (Manual) Eosinophils % (Manual) Basophils % (Manual) Nucleated RBC % Seg Neutrophils # Seg Neutrophils # Man Lymphocytes # (Manual) Monocytes # (Manual) Eosinophils # (Manual) PT INR Fibrinogen dRVVT Confirm Interp Factor V Activity POC ABG pH POC ABG pCO2 POC ABG pO2 Sodium Potassium Chloride Carbon Dioxide BUN Creatinine Glucose POC Glucose 107 H 52 L 145 H Lactic Acid Calcium Phosphorus Magnesium Direct Bilirubin AST ALT Alkaline Phosphatase Lactate Dehydrogenase Troponin T C-Reactive Protein Total Protein Albumin Prealbumin Triglycerides Cholesterol LDL Cholesterol Direct HDL Cholesterol Urine pH Urine WBC (Auto) Urine Creatinine Urine Total Protein Fluid Total Protein Vancomycin Trough Rheumatoid Factor Complement C4 Miscellaneous Test Crossmatch 10/02/16 10/02/16 10/02/16 10:30 10:50 10:50 WBC 14.7 H RBC 2.76 L Hgb 7.4 L Hct 23.6 L MCV MCH 27 L MCHC RDW 20.2 H Plt Count 79 L Lymph % (Auto) [place] % (Auto) Lymph # [place] # Baso # Seg Neutrophils % Seg Neuts % (Manual) 86.0 H Lymphocytes % (Manual) 6.0 L Monocytes % (Manual) Eosinophils % (Manual) Basophils % (Manual) Nucleated RBC % Seg Neutrophils # Seg Neutrophils # Man 12.6 H Lymphocytes # (Manual) 0.9 L Monocytes # (Manual) Eosinophils # (Manual) PT INR Fibrinogen dRVVT Confirm Interp Factor V Activity POC ABG pH 7.486 H POC ABG pCO2 30.1 L POC ABG pO2 108 H Sodium 131 L Potassium 3.4 L Chloride 89.9 L Carbon Dioxide BUN 26 H Creatinine 2.6 H Glucose POC Glucose Lactic Acid Calcium 7.0 L Phosphorus Magnesium Direct Bilirubin AST ALT Alkaline Phosphatase Lactate Dehydrogenase Troponin T C-Reactive Protein Total Protein Albumin Prealbumin Triglycerides Cholesterol LDL Cholesterol Direct HDL Cholesterol Urine pH Urine WBC (Auto) Urine Creatinine Urine Total Protein Fluid Total Protein Vancomycin Trough Rheumatoid Factor Complement C4 Miscellaneous Test Crossmatch 10/02/16 10/03/16 10/03/16 23:45 00:45 05:10 WBC 12.9 H RBC 2.77 L Hgb 7.6 L Hct 23.7 L MCV MCH 27 L MCHC RDW 19.7 H Plt Count 89 L Lymph % (Auto) [place] % (Auto) Lymph # [place] # Baso # Seg Neutrophils % Seg Neuts % (Manual) Lymphocytes % (Manual) 8.0 L Monocytes % (Manual) Eosinophils % (Manual) Basophils % (Manual) Nucleated RBC % Seg Neutrophils # 11.9 H Seg Neutrophils # Man Lymphocytes # (Manual) 1.0 L Monocytes # (Manual) Eosinophils # (Manual) PT INR Fibrinogen dRVVT Confirm Interp Factor V Activity POC ABG pH POC ABG pCO2 POC ABG pO2 Sodium Potassium Chloride Carbon Dioxide BUN Creatinine Glucose POC Glucose 55 L 199 H Lactic Acid Calcium Phosphorus Magnesium Direct Bilirubin AST ALT Alkaline Phosphatase Lactate Dehydrogenase Troponin T C-Reactive Protein Total Protein Albumin Prealbumin Triglycerides Cholesterol LDL Cholesterol Direct HDL Cholesterol Urine pH Urine WBC (Auto) Urine Creatinine Urine Total Protein Fluid Total Protein Vancomycin Trough Rheumatoid Factor Complement C4 Miscellaneous Test Crossmatch 10/03/16 10/03/16 10/03/16 05:10 12:14 13:18 WBC RBC Hgb Hct MCV MCH MCHC RDW Plt Count Lymph % (Auto) [place] % (Auto) Lymph # [place] # Baso # Seg Neutrophils % Seg Neuts % (Manual) Lymphocytes % (Manual) Monocytes % (Manual) Eosinophils % (Manual) Basophils % (Manual) Nucleated RBC % Seg Neutrophils # Seg Neutrophils # Man Lymphocytes # (Manual) Monocytes # (Manual) Eosinophils # (Manual) PT INR Fibrinogen dRVVT Confirm Interp Factor V Activity POC ABG pH POC ABG pCO2 POC ABG pO2 Sodium 129 L Potassium 3.3 L Chloride 88.8 L Carbon Dioxide 20 L BUN 29 H Creatinine 2.8 H Glucose POC Glucose 68 L 127 H Lactic Acid Calcium 7.2 L Phosphorus Magnesium Direct Bilirubin AST ALT Alkaline Phosphatase Lactate Dehydrogenase Troponin T C-Reactive Protein Total Protein Albumin Prealbumin Triglycerides Cholesterol LDL Cholesterol Direct HDL Cholesterol Urine pH Urine WBC (Auto) Urine Creatinine Urine Total Protein Fluid Total Protein Vancomycin Trough Rheumatoid Factor Complement C4 Miscellaneous Test Crossmatch 10/03/16 10/03/16 10/03/16 14:42 18:21 19:09 WBC RBC Hgb Hct MCV MCH MCHC RDW Plt Count Lymph % (Auto) [place] % (Auto) Lymph # [place] # Baso # Seg Neutrophils % Seg Neuts % (Manual) Lymphocytes % (Manual) Monocytes % (Manual) Eosinophils % (Manual) Basophils % (Manual) Nucleated RBC % Seg Neutrophils # Seg Neutrophils # Man Lymphocytes # (Manual) Monocytes # (Manual) Eosinophils # (Manual) PT INR Fibrinogen dRVVT Confirm Interp Factor V Activity POC ABG pH 7.499 H POC ABG pCO2 28.4 L POC ABG pO2 44 L Sodium Potassium Chloride Carbon Dioxide BUN Creatinine Glucose POC Glucose 64 L 205 H Lactic Acid Calcium Phosphorus Magnesium Direct Bilirubin AST ALT Alkaline Phosphatase Lactate Dehydrogenase Troponin T C-Reactive Protein Total Protein Albumin Prealbumin Triglycerides Cholesterol LDL Cholesterol Direct HDL Cholesterol Urine pH Urine WBC (Auto) Urine Creatinine Urine Total Protein Fluid Total Protein Vancomycin Trough Rheumatoid Factor Complement C4 Miscellaneous Test Crossmatch 10/03/16 10/04/16 10/04/16 23:33 04:18 06:30 WBC RBC 2.54 L Hgb 7.1 L Hct 21.7 L MCV MCH MCHC RDW 19.5 H Plt Count 76 L Lymph % (Auto) [place] % (Auto) Lymph # [place] # Baso # Seg Neutrophils % Seg Neuts % (Manual) 88.0 H Lymphocytes % (Manual) 6.0 L Monocytes % (Manual) Eosinophils % (Manual) Basophils % (Manual) Nucleated RBC % Seg Neutrophils # Seg Neutrophils # Man 8.8 H Lymphocytes # (Manual) 0.6 L Monocytes # (Manual) Eosinophils # (Manual) PT INR Fibrinogen dRVVT Confirm Interp Factor V Activity POC ABG pH 7.461 H POC ABG pCO2 33.6 L POC ABG pO2 211 H Sodium Potassium Chloride Carbon Dioxide BUN Creatinine Glucose POC Glucose 136 H Lactic Acid Calcium Phosphorus Magnesium Direct Bilirubin AST ALT Alkaline Phosphatase Lactate Dehydrogenase Troponin T C-Reactive Protein Total Protein Albumin Prealbumin Triglycerides Cholesterol LDL Cholesterol Direct HDL Cholesterol Urine pH Urine WBC (Auto) Urine Creatinine Urine Total Protein Fluid Total Protein Vancomycin Trough Rheumatoid Factor Complement C4 Miscellaneous Test Crossmatch 10/04/16 10/04/16 10/04/16 06:30 11:45 17:54 WBC RBC Hgb Hct MCV MCH MCHC RDW Plt Count Lymph % (Auto) [place] % (Auto) Lymph # [place] # Baso # Seg Neutrophils % Seg Neuts % (Manual) Lymphocytes % (Manual) Monocytes % (Manual) Eosinophils % (Manual) Basophils % (Manual) Nucleated RBC % Seg Neutrophils # Seg Neutrophils # Man Lymphocytes # (Manual) Monocytes # (Manual) Eosinophils # (Manual) PT INR Fibrinogen dRVVT Confirm Interp Factor V Activity POC ABG pH POC ABG pCO2 POC ABG pO2 Sodium 128 L Potassium Chloride 87.4 L Carbon Dioxide 20 L BUN 34 H Creatinine 2.9 H Glucose 127 H POC Glucose 158 H 160 H Lactic Acid Calcium 7.4 L Phosphorus Magnesium Direct Bilirubin AST ALT Alkaline Phosphatase Lactate Dehydrogenase Troponin T C-Reactive Protein Total Protein Albumin Prealbumin Triglycerides Cholesterol LDL Cholesterol Direct HDL Cholesterol Urine pH Urine WBC (Auto) Urine Creatinine Urine Total Protein Fluid Total Protein Vancomycin Trough Rheumatoid Factor Complement C4 Miscellaneous Test Crossmatch 10/04/16 10/05/16 10/05/16 23:25 04:30 05:00 WBC RBC 2.64 L Hgb 7.5 L Hct 22.6 L MCV MCH MCHC RDW 19.3 H Plt Count 80 L Lymph % (Auto) [place] % (Auto) Lymph # [place] # Baso # Seg Neutrophils % Seg Neuts % (Manual) Lymphocytes % (Manual) 12.0 L Monocytes % (Manual) Eosinophils % (Manual) Basophils % (Manual) Nucleated RBC % Seg Neutrophils # Seg Neutrophils # Man Lymphocytes # (Manual) Monocytes # (Manual) Eosinophils # (Manual) PT INR Fibrinogen dRVVT Confirm Interp Factor V Activity POC ABG pH 7.475 H POC ABG pCO2 33.3 L POC ABG pO2 140 H Sodium Potassium Chloride Carbon Dioxide BUN Creatinine Glucose POC Glucose 141 H Lactic Acid Calcium Phosphorus Magnesium Direct Bilirubin AST ALT Alkaline Phosphatase Lactate Dehydrogenase Troponin T C-Reactive Protein Total Protein Albumin Prealbumin Triglycerides Cholesterol LDL Cholesterol Direct HDL Cholesterol Urine pH Urine WBC (Auto) Urine Creatinine Urine Total Protein Fluid Total Protein Vancomycin Trough Rheumatoid Factor Complement C4 Miscellaneous Test Crossmatch 10/05/16 10/05/16 10/05/16 05:00 05:09 12:58 WBC RBC Hgb Hct MCV MCH MCHC RDW Plt Count Lymph % (Auto) [place] % (Auto) Lymph # [place] # Baso # Seg Neutrophils % Seg Neuts % (Manual) Lymphocytes % (Manual) Monocytes % (Manual) Eosinophils % (Manual) Basophils % (Manual) Nucleated RBC % Seg Neutrophils # Seg Neutrophils # Man Lymphocytes # (Manual) Monocytes # (Manual) Eosinophils # (Manual) PT INR Fibrinogen dRVVT Confirm Interp Factor V Activity POC ABG pH POC ABG pCO2 POC ABG pO2 Sodium 131 L Potassium Chloride 94.0 L Carbon Dioxide 20 L BUN 22 H Creatinine 2.0 H Glucose 123 H POC Glucose 166 H 179 H Lactic Acid Calcium 7.7 L Phosphorus 2.20 L D Magnesium Direct Bilirubin AST ALT Alkaline Phosphatase Lactate Dehydrogenase Troponin T C-Reactive Protein Total Protein Albumin Prealbumin Triglycerides Cholesterol LDL Cholesterol Direct HDL Cholesterol Urine pH Urine WBC (Auto) Urine Creatinine Urine Total Protein Fluid Total Protein Vancomycin Trough Rheumatoid Factor Complement C4 Miscellaneous Test Crossmatch 10/05/16 10/05/16 10/05/16 15:50 18:53 23:12 WBC RBC Hgb Hct MCV MCH MCHC RDW Plt Count Lymph % (Auto) [place] % (Auto) Lymph # [place] # Baso # Seg Neutrophils % Seg Neuts % (Manual) Lymphocytes % (Manual) Monocytes % (Manual) Eosinophils % (Manual) Basophils % (Manual) Nucleated RBC % Seg Neutrophils # Seg Neutrophils # Man Lymphocytes # (Manual) Monocytes # (Manual) Eosinophils # (Manual) PT INR Fibrinogen dRVVT Confirm Interp Factor V Activity POC ABG pH POC ABG pCO2 POC ABG pO2 Sodium Potassium Chloride Carbon Dioxide BUN Creatinine Glucose POC Glucose 150 H 164 H Lactic Acid Calcium Phosphorus Magnesium Direct Bilirubin AST ALT Alkaline Phosphatase Lactate Dehydrogenase Troponin T C-Reactive Protein Total Protein Albumin Prealbumin Triglycerides Cholesterol LDL Cholesterol Direct HDL Cholesterol Urine pH Urine WBC (Auto) Urine Creatinine Urine Total Protein Fluid Total Protein Vancomycin Trough Rheumatoid Factor Complement C4 Miscellaneous Test Crossmatch See Detail 10/06/16 10/06/16 10/06/16 03:50 03:50 04:53 WBC RBC 3.00 L Hgb 8.6 L Hct 25.8 L MCV MCH MCHC RDW 17.9 H Plt Count 65 L Lymph % (Auto) [place] % (Auto) Lymph # [place] # Baso # Seg Neutrophils % Seg Neuts % (Manual) 30.0 L Lymphocytes % (Manual) 5.0 L Monocytes % (Manual) Eosinophils % (Manual) Basophils % (Manual) Nucleated RBC % Seg Neutrophils # Seg Neutrophils # Man Lymphocytes # (Manual) 0.4 L Monocytes # (Manual) Eosinophils # (Manual) PT INR Fibrinogen dRVVT Confirm Interp Factor V Activity POC ABG pH 7.310 L POC ABG pCO2 49.0 H POC ABG pO2 Sodium 133 L Potassium Chloride 95.9 L Carbon Dioxide BUN 26 H Creatinine 2.0 H Glucose 116 H POC Glucose Lactic Acid Calcium 7.8 L Phosphorus Magnesium Direct Bilirubin AST ALT Alkaline Phosphatase Lactate Dehydrogenase Troponin T C-Reactive Protein Total Protein Albumin Prealbumin Triglycerides Cholesterol LDL Cholesterol Direct HDL Cholesterol Urine pH Urine WBC (Auto) Urine Creatinine Urine Total Protein Fluid Total Protein Vancomycin Trough Rheumatoid Factor Complement C4 Miscellaneous Test Crossmatch 10/06/16 10/06/16 10/06/16 05:23 11:52 18:34 WBC RBC Hgb Hct MCV MCH MCHC RDW Plt Count Lymph % (Auto) [place] % (Auto) Lymph # [place] # Baso # Seg Neutrophils % Seg Neuts % (Manual) Lymphocytes % (Manual) Monocytes % (Manual) Eosinophils % (Manual) Basophils % (Manual) Nucleated RBC % Seg Neutrophils # Seg Neutrophils # Man Lymphocytes # (Manual) Monocytes # (Manual) Eosinophils # (Manual) PT INR Fibrinogen dRVVT Confirm Interp Factor V Activity POC ABG pH POC ABG pCO2 POC ABG pO2 Sodium Potassium Chloride Carbon Dioxide BUN Creatinine Glucose POC Glucose 126 H 116 H 129 H Lactic Acid Calcium Phosphorus Magnesium Direct Bilirubin AST ALT Alkaline Phosphatase Lactate Dehydrogenase Troponin T C-Reactive Protein Total Protein Albumin Prealbumin Triglycerides Cholesterol LDL Cholesterol Direct HDL Cholesterol Urine pH Urine WBC (Auto) Urine Creatinine Urine Total Protein Fluid Total Protein Vancomycin Trough Rheumatoid Factor Complement C4 Miscellaneous Test Crossmatch 10/07/16 10/07/16 10/07/16 03:45 05:00 10:00 WBC 17.0 H RBC 2.68 L Hgb 7.3 L Hct 25.3 L MCV MCH 27 L MCHC 29 L RDW 19.6 H Plt Count 74 L Lymph % (Auto) [place] % (Auto) Lymph # [place] # Baso # Seg Neutrophils % Seg Neuts % (Manual) Lymphocytes % (Manual) 12.0 L Monocytes % (Manual) Eosinophils % (Manual) Basophils % (Manual) Nucleated RBC % 4.0 H Seg Neutrophils # Seg Neutrophils # Man 10.7 H Lymphocytes # (Manual) Monocytes # (Manual) Eosinophils # (Manual) PT INR Fibrinogen dRVVT Confirm Interp Factor V Activity POC ABG pH POC ABG pCO2 POC ABG pO2 Sodium 130 L Potassium 3.2 L Chloride 93.9 L Carbon Dioxide 20 L BUN 44 H Creatinine 2.7 H Glucose 129 H POC Glucose Lactic Acid Calcium 7.4 L Phosphorus Magnesium Direct Bilirubin AST ALT 6 L Alkaline Phosphatase 195 H Lactate Dehydrogenase Troponin T C-Reactive Protein Total Protein 4.9 L Albumin 1.0 L Prealbumin Triglycerides Cholesterol LDL Cholesterol Direct HDL Cholesterol Urine pH Urine WBC (Auto) Urine Creatinine Urine Total Protein Fluid Total Protein Vancomycin Trough Rheumatoid Factor Complement C4 Miscellaneous Test Flexitest 1 H Crossmatch 10/07/16 10/07/16 10/07/16 10:00 11:24 18:10 WBC RBC Hgb Hct MCV MCH MCHC RDW Plt Count Lymph % (Auto) [place] % (Auto) Lymph # [place] # Baso # Seg Neutrophils % Seg Neuts % (Manual) Lymphocytes % (Manual) Monocytes % (Manual) Eosinophils % (Manual) Basophils % (Manual) Nucleated RBC % Seg Neutrophils # Seg Neutrophils # Man Lymphocytes # (Manual) Monocytes # (Manual) Eosinophils # (Manual) PT INR Fibrinogen dRVVT Confirm Interp Factor V Activity POC ABG pH POC ABG pCO2 POC ABG pO2 Sodium Potassium Chloride Carbon Dioxide BUN Creatinine Glucose POC Glucose 116 H 130 H Lactic Acid Calcium Phosphorus Magnesium Direct Bilirubin AST ALT Alkaline Phosphatase Lactate Dehydrogenase Troponin T C-Reactive Protein 19.40 H Total Protein Albumin Prealbumin Triglycerides Cholesterol LDL Cholesterol Direct HDL Cholesterol Urine pH Urine WBC (Auto) Urine Creatinine Urine Total Protein Fluid Total Protein Vancomycin Trough Rheumatoid Factor Complement C4 Miscellaneous Test Crossmatch 10/07/16 10/08/16 10/08/16 18:30 00:00 04:00 WBC RBC Hgb Hct MCV MCH MCHC RDW Plt Count Lymph % (Auto) [place] % (Auto) Lymph # [place] # Baso # Seg Neutrophils % Seg Neuts % (Manual) Lymphocytes % (Manual) Monocytes % (Manual) Eosinophils % (Manual) Basophils % (Manual) Nucleated RBC % Seg Neutrophils # Seg Neutrophils # Man Lymphocytes # (Manual) Monocytes # (Manual) Eosinophils # (Manual) PT INR Fibrinogen dRVVT Confirm Interp Factor V Activity POC ABG pH POC ABG pCO2 POC ABG pO2 Sodium 132 L Potassium 3.3 L Chloride 93.6 L Carbon Dioxide 17 L BUN 59 H Creatinine 2.7 H Glucose 121 H POC Glucose 122 H Lactic Acid Calcium 7.6 L Phosphorus Magnesium Direct Bilirubin AST ALT Alkaline Phosphatase Lactate Dehydrogenase Troponin T C-Reactive Protein Total Protein Albumin Prealbumin Triglycerides Cholesterol LDL Cholesterol Direct HDL Cholesterol Urine pH Urine WBC (Auto) > 182.0 H Urine Creatinine Urine Total Protein Fluid Total Protein Vancomycin Trough Rheumatoid Factor Complement C4 Miscellaneous Test Crossmatch 10/08/16 10/08/16 10/08/16 04:30 05:30 11:51 WBC RBC 5.15 H Hgb 14.4 H D Hct 44.5 H D MCV MCH MCHC RDW 19.5 H Plt Count 56 L Lymph % (Auto) [place] % (Auto) Lymph # [place] # Baso # Seg Neutrophils % Seg Neuts % (Manual) 24.0 L Lymphocytes % (Manual) 8.0 L Monocytes % (Manual) Eosinophils % (Manual) Basophils % (Manual) Nucleated RBC % 9.0 H Seg Neutrophils # Seg Neutrophils # Man Lymphocytes # (Manual) 0.7 L Monocytes # (Manual) Eosinophils # (Manual) PT INR Fibrinogen dRVVT Confirm Interp Factor V Activity POC ABG pH POC ABG pCO2 POC ABG pO2 Sodium Potassium Chloride Carbon Dioxide BUN Creatinine Glucose POC Glucose 125 H 150 H Lactic Acid Calcium Phosphorus Magnesium Direct Bilirubin AST ALT Alkaline Phosphatase Lactate Dehydrogenase Troponin T C-Reactive Protein Total Protein Albumin Prealbumin Triglycerides Cholesterol LDL Cholesterol Direct HDL Cholesterol Urine pH Urine WBC (Auto) Urine Creatinine Urine Total Protein Fluid Total Protein Vancomycin Trough Rheumatoid Factor Complement C4 Miscellaneous Test Crossmatch 10/08/16 10/08/16 10/08/16 12:49 17:07 19:30 WBC RBC Hgb 7.1 L D Hct 22.4 L D MCV MCH MCHC RDW Plt Count Lymph % (Auto) [place] % (Auto) Lymph # [place] # Baso # Seg Neutrophils % Seg Neuts % (Manual) Lymphocytes % (Manual) Monocytes % (Manual) Eosinophils % (Manual) Basophils % (Manual) Nucleated RBC % Seg Neutrophils # Seg Neutrophils # Man Lymphocytes # (Manual) Monocytes # (Manual) Eosinophils # (Manual) PT INR Fibrinogen dRVVT Confirm Interp Factor V Activity POC ABG pH POC ABG pCO2 28.2 L POC ABG pO2 111 H Sodium Potassium Chloride Carbon Dioxide BUN Creatinine Glucose POC Glucose 145 H Lactic Acid Calcium Phosphorus Magnesium Direct Bilirubin AST ALT Alkaline Phosphatase Lactate Dehydrogenase Troponin T C-Reactive Protein Total Protein Albumin Prealbumin Triglycerides Cholesterol LDL Cholesterol Direct HDL Cholesterol Urine pH Urine WBC (Auto) Urine Creatinine Urine Total Protein Fluid Total Protein Vancomycin Trough Rheumatoid Factor Complement C4 Miscellaneous Test Crossmatch 10/08/16 10/09/16 10/09/16 19:30 03:45 03:45 WBC 12.6 H RBC 2.36 L Hgb 6.7 L Hct 21.1 L MCV MCH MCHC RDW 19.5 H Plt Count 75 L Lymph % (Auto) [place] % (Auto) Lymph # [place] # Baso # Seg Neutrophils % Seg Neuts % (Manual) Lymphocytes % (Manual) Monocytes % (Manual) 10.0 H Eosinophils % (Manual) Basophils % (Manual) Nucleated RBC % 3.0 H Seg Neutrophils # Seg Neutrophils # Man Lymphocytes # (Manual) Monocytes # (Manual) 1.3 H Eosinophils # (Manual) PT 18.0 H INR 1.41 H Fibrinogen dRVVT Confirm Interp Factor V Activity POC ABG pH POC ABG pCO2 POC ABG pO2 Sodium 135 L Potassium Chloride Carbon Dioxide 17 L BUN 81 H Creatinine 3.2 H Glucose 109 H POC Glucose Lactic Acid Calcium 7.4 L Phosphorus 4.60 H D Magnesium Direct Bilirubin AST ALT Alkaline Phosphatase Lactate Dehydrogenase Troponin T C-Reactive Protein Total Protein Albumin Prealbumin Triglycerides Cholesterol LDL Cholesterol Direct HDL Cholesterol Urine pH Urine WBC (Auto) Urine Creatinine Urine Total Protein Fluid Total Protein Vancomycin Trough Rheumatoid Factor Complement C4 Miscellaneous Test Crossmatch 10/09/16 10/09/16 10/09/16 03:45 05:14 07:20 WBC RBC Hgb Hct MCV MCH MCHC RDW Plt Count Lymph % (Auto) [place] % (Auto) Lymph # [place] # Baso # Seg Neutrophils % Seg Neuts % (Manual) Lymphocytes % (Manual) Monocytes % (Manual) Eosinophils % (Manual) Basophils % (Manual) Nucleated RBC % Seg Neutrophils # Seg Neutrophils # Man Lymphocytes # (Manual) Monocytes # (Manual) Eosinophils # (Manual) PT 19.0 H INR 1.51 H Fibrinogen dRVVT Confirm Interp Factor V Activity POC ABG pH POC ABG pCO2 POC ABG pO2 Sodium Potassium Chloride Carbon Dioxide BUN Creatinine Glucose POC Glucose 151 H Lactic Acid Calcium Phosphorus Magnesium Direct Bilirubin AST ALT Alkaline Phosphatase Lactate Dehydrogenase Troponin T C-Reactive Protein Total Protein Albumin Prealbumin Triglycerides Cholesterol LDL Cholesterol Direct HDL Cholesterol Urine pH Urine WBC (Auto) Urine Creatinine Urine Total Protein Fluid Total Protein Vancomycin Trough Rheumatoid Factor Complement C4 Miscellaneous Test Crossmatch See Detail 10/09/16 10/09/16 10/09/16 11:46 16:20 16:43 WBC RBC Hgb 7.2 L Hct 22.2 L MCV MCH MCHC RDW Plt Count Lymph % (Auto) [place] % (Auto) Lymph # [place] # Baso # Seg Neutrophils % Seg Neuts % (Manual) Lymphocytes % (Manual) Monocytes % (Manual) Eosinophils % (Manual) Basophils % (Manual) Nucleated RBC % Seg Neutrophils # Seg Neutrophils # Man Lymphocytes # (Manual) Monocytes # (Manual) Eosinophils # (Manual) PT INR Fibrinogen dRVVT Confirm Interp Factor V Activity POC ABG pH POC ABG pCO2 POC ABG pO2 Sodium Potassium Chloride Carbon Dioxide BUN Creatinine Glucose POC Glucose 133 H 141 H Lactic Acid Calcium Phosphorus Magnesium Direct Bilirubin AST ALT Alkaline Phosphatase Lactate Dehydrogenase Troponin T C-Reactive Protein Total Protein Albumin Prealbumin Triglycerides Cholesterol LDL Cholesterol Direct HDL Cholesterol Urine pH Urine WBC (Auto) Urine Creatinine Urine Total Protein Fluid Total Protein Vancomycin Trough Rheumatoid Factor Complement C4 Miscellaneous Test Crossmatch 10/10/16 10/10/16 10/10/16 05:00 05:00 11:19 WBC 18.5 H RBC 2.19 L Hgb 6.4 L Hct 19.6 L* MCV MCH MCHC RDW 19.3 H Plt Count 93 L Lymph % (Auto) [place] % (Auto) Lymph # [place] # Baso # Seg Neutrophils % Seg Neuts % (Manual) Lymphocytes % (Manual) 10.0 L Monocytes % (Manual) Eosinophils % (Manual) Basophils % (Manual) Nucleated RBC % 4.0 H Seg Neutrophils # Seg Neutrophils # Man 11.3 H Lymphocytes # (Manual) Monocytes # (Manual) Eosinophils # (Manual) PT INR Fibrinogen dRVVT Confirm Interp Factor V Activity POC ABG pH POC ABG pCO2 POC ABG pO2 Sodium Potassium 5.7 H D Chloride Carbon Dioxide 16 L BUN 94 H Creatinine 3.1 H Glucose 131 H POC Glucose 153 H Lactic Acid Calcium 8.2 L Phosphorus 5.10 H Magnesium 2.40 H Direct Bilirubin 0.3 H AST ALT < 5 L Alkaline Phosphatase 319 H Lactate Dehydrogenase Troponin T C-Reactive Protein Total Protein 5.1 L Albumin 1.0 L Prealbumin Triglycerides Cholesterol LDL Cholesterol Direct HDL Cholesterol Urine pH Urine WBC (Auto) Urine Creatinine Urine Total Protein Fluid Total Protein Vancomycin Trough Rheumatoid Factor Complement C4 Miscellaneous Test Crossmatch 10/10/16 10/10/16 10/11/16 17:50 23:30 04:15 WBC RBC Hgb Hct MCV MCH MCHC RDW Plt Count Lymph % (Auto) [place] % (Auto) Lymph # [place] # Baso # Seg Neutrophils % Seg Neuts % (Manual) Lymphocytes % (Manual) Monocytes % (Manual) Eosinophils % (Manual) Basophils % (Manual) Nucleated RBC % Seg Neutrophils # Seg Neutrophils # Man Lymphocytes # (Manual) Monocytes # (Manual) Eosinophils # (Manual) PT INR Fibrinogen dRVVT Confirm Interp Factor V Activity POC ABG pH POC ABG pCO2 POC ABG pO2 Sodium Potassium Chloride 96.4 L Carbon Dioxide 21 L BUN 57 H Creatinine 2.1 H Glucose 151 H POC Glucose 146 H 141 H Lactic Acid Calcium 8.3 L Phosphorus Magnesium Direct Bilirubin AST ALT Alkaline Phosphatase Lactate Dehydrogenase Troponin T C-Reactive Protein Total Protein Albumin Prealbumin Triglycerides Cholesterol LDL Cholesterol Direct HDL Cholesterol Urine pH Urine WBC (Auto) Urine Creatinine Urine Total Protein Fluid Total Protein Vancomycin Trough Rheumatoid Factor Complement C4 Miscellaneous Test Crossmatch 10/11/16 10/11/16 10/11/16 04:15 04:15 05:30 WBC 28.3 H RBC 3.12 L Hgb 9.3 L Hct 28.7 L D MCV MCH MCHC RDW 17.7 H Plt Count 128 L Lymph % (Auto) [place] % (Auto) Lymph # [place] # Baso # Seg Neutrophils % Seg Neuts % (Manual) Lymphocytes % (Manual) Monocytes % (Manual) Eosinophils % (Manual) Basophils % (Manual) Nucleated RBC % Seg Neutrophils # Seg Neutrophils # Man Lymphocytes # (Manual) Monocytes # (Manual) Eosinophils # (Manual) PT INR Fibrinogen dRVVT Confirm Interp Factor V Activity POC ABG pH POC ABG pCO2 POC ABG pO2 Sodium Potassium Chloride Carbon Dioxide BUN Creatinine Glucose POC Glucose 167 H Lactic Acid Calcium Phosphorus Magnesium Direct Bilirubin AST ALT Alkaline Phosphatase Lactate Dehydrogenase Troponin T C-Reactive Protein 15.80 H Total Protein Albumin Prealbumin Triglycerides Cholesterol LDL Cholesterol Direct HDL Cholesterol Urine pH Urine WBC (Auto) Urine Creatinine Urine Total Protein Fluid Total Protein Vancomycin Trough Rheumatoid Factor Complement C4 Miscellaneous Test Crossmatch 10/11/16 10/11/16 10/11/16 11:40 15:49 23:57 WBC RBC Hgb Hct MCV MCH MCHC RDW Plt Count Lymph % (Auto) [place] % (Auto) Lymph # [place] # Baso # Seg Neutrophils % Seg Neuts % (Manual) Lymphocytes % (Manual) Monocytes % (Manual) Eosinophils % (Manual) Basophils % (Manual) Nucleated RBC % Seg Neutrophils # Seg Neutrophils # Man Lymphocytes # (Manual) Monocytes # (Manual) Eosinophils # (Manual) PT INR Fibrinogen dRVVT Confirm Interp Factor V Activity POC ABG pH POC ABG pCO2 POC ABG pO2 Sodium Potassium Chloride Carbon Dioxide BUN Creatinine Glucose POC Glucose 139 H 168 H 161 H Lactic Acid Calcium Phosphorus Magnesium Direct Bilirubin AST ALT Alkaline Phosphatase Lactate Dehydrogenase Troponin T C-Reactive Protein Total Protein Albumin Prealbumin Triglycerides Cholesterol LDL Cholesterol Direct HDL Cholesterol Urine pH Urine WBC (Auto) Urine Creatinine Urine Total Protein Fluid Total Protein Vancomycin Trough Rheumatoid Factor Complement C4 Miscellaneous Test Crossmatch 10/12/16 10/12/16 10/12/16 04:40 04:40 05:44 WBC 22.5 H RBC 2.88 L Hgb 8.8 L Hct 26.8 L MCV MCH MCHC RDW 17.8 H Plt Count Lymph % (Auto) [place] % (Auto) Lymph # [place] # Baso # Seg Neutrophils % Seg Neuts % (Manual) Lymphocytes % (Manual) Monocytes % (Manual) Eosinophils % (Manual) Basophils % (Manual) Nucleated RBC % Seg Neutrophils # Seg Neutrophils # Man Lymphocytes # (Manual) Monocytes # (Manual) Eosinophils # (Manual) PT INR Fibrinogen dRVVT Confirm Interp Factor V Activity POC ABG pH POC ABG pCO2 POC ABG pO2 Sodium 134 L Potassium Chloride 93.0 L Carbon Dioxide BUN 74 H Creatinine 2.5 H Glucose 137 H POC Glucose 158 H Lactic Acid Calcium 8.2 L Phosphorus Magnesium Direct Bilirubin AST ALT Alkaline Phosphatase Lactate Dehydrogenase Troponin T C-Reactive Protein Total Protein Albumin Prealbumin Triglycerides Cholesterol LDL Cholesterol Direct HDL Cholesterol Urine pH Urine WBC (Auto) Urine Creatinine Urine Total Protein Fluid Total Protein Vancomycin Trough Rheumatoid Factor Complement C4 Miscellaneous Test Crossmatch 10/12/16 10/12/16 10/12/16 12:27 18:18 23:46 WBC RBC Hgb Hct MCV MCH MCHC RDW Plt Count Lymph % (Auto) [place] % (Auto) Lymph # [place] # Baso # Seg Neutrophils % Seg Neuts % (Manual) Lymphocytes % (Manual) Monocytes % (Manual) Eosinophils % (Manual) Basophils % (Manual) Nucleated RBC % Seg Neutrophils # Seg Neutrophils # Man Lymphocytes # (Manual) Monocytes # (Manual) Eosinophils # (Manual) PT INR Fibrinogen dRVVT Confirm Interp Factor V Activity POC ABG pH POC ABG pCO2 POC ABG pO2 Sodium Potassium Chloride Carbon Dioxide BUN Creatinine Glucose POC Glucose 153 H 140 H 150 H Lactic Acid Calcium Phosphorus Magnesium Direct Bilirubin AST ALT Alkaline Phosphatase Lactate Dehydrogenase Troponin T C-Reactive Protein Total Protein Albumin Prealbumin Triglycerides Cholesterol LDL Cholesterol Direct HDL Cholesterol Urine pH Urine WBC (Auto) Urine Creatinine Urine Total Protein Fluid Total Protein Vancomycin Trough Rheumatoid Factor Complement C4 Miscellaneous Test Crossmatch 10/13/16 10/13/16 10/13/16 06:22 09:20 12:29 WBC RBC Hgb Hct MCV MCH MCHC RDW Plt Count Lymph % (Auto) [place] % (Auto) Lymph # [place] # Baso # Seg Neutrophils % Seg Neuts % (Manual) Lymphocytes % (Manual) Monocytes % (Manual) Eosinophils % (Manual) Basophils % (Manual) Nucleated RBC % Seg Neutrophils # Seg Neutrophils # Man Lymphocytes # (Manual) Monocytes # (Manual) Eosinophils # (Manual) PT INR Fibrinogen dRVVT Confirm Interp Factor V Activity POC ABG pH POC ABG pCO2 POC ABG pO2 Sodium Potassium Chloride Carbon Dioxide BUN Creatinine Glucose POC Glucose 165 H 193 H Lactic Acid Calcium Phosphorus Magnesium Direct Bilirubin AST ALT Alkaline Phosphatase Lactate Dehydrogenase Troponin T C-Reactive Protein Total Protein Albumin Prealbumin Triglycerides Cholesterol LDL Cholesterol Direct HDL Cholesterol Urine pH Urine WBC (Auto) Urine Creatinine Urine Total Protein Fluid Total Protein Vancomycin Trough Rheumatoid Factor Complement C4 Miscellaneous Test Flexitest 1 H Crossmatch 10/13/16 10/13/16 10/13/16 18:09 Unknown Unknown WBC 23.4 H RBC 2.83 L Hgb 8.7 L Hct 26.1 L MCV MCH MCHC RDW 18.1 H Plt Count Lymph % (Auto) [place] % (Auto) Lymph # [place] # Baso # Seg Neutrophils % Seg Neuts % (Manual) Lymphocytes % (Manual) Monocytes % (Manual) Eosinophils % (Manual) Basophils % (Manual) Nucleated RBC % Seg Neutrophils # Seg Neutrophils # Man Lymphocytes # (Manual) Monocytes # (Manual) Eosinophils # (Manual) PT INR Fibrinogen dRVVT Confirm Interp Factor V Activity POC ABG pH POC ABG pCO2 POC ABG pO2 Sodium Potassium Chloride 95.8 L Carbon Dioxide BUN 82 H Creatinine 2.6 H Glucose 152 H POC Glucose 166 H Lactic Acid Calcium Phosphorus Magnesium Direct Bilirubin AST ALT Alkaline Phosphatase Lactate Dehydrogenase Troponin T C-Reactive Protein Total Protein Albumin Prealbumin Triglycerides Cholesterol LDL Cholesterol Direct HDL Cholesterol Urine pH Urine WBC (Auto) Urine Creatinine Urine Total Protein Fluid Total Protein Vancomycin Trough Rheumatoid Factor Complement C4 Miscellaneous Test Crossmatch 10/14/16 10/14/16 10/14/16 05:38 06:35 08:10 WBC 20.7 H RBC 2.81 L Hgb 8.4 L Hct 27.2 L MCV MCH MCHC RDW 19.4 H Plt Count Lymph % (Auto) [place] % (Auto) Lymph # [place] # Baso # Seg Neutrophils % Seg Neuts % (Manual) Lymphocytes % (Manual) Monocytes % (Manual) Eosinophils % (Manual) Basophils % (Manual) Nucleated RBC % Seg Neutrophils # Seg Neutrophils # Man Lymphocytes # (Manual) Monocytes # (Manual) Eosinophils # (Manual) PT INR Fibrinogen dRVVT Confirm Interp Factor V Activity POC ABG pH POC ABG pCO2 POC ABG pO2 Sodium Potassium Chloride Carbon Dioxide BUN 58 H Creatinine 1.9 H Glucose 169 H POC Glucose 195 H Lactic Acid Calcium Phosphorus Magnesium Direct Bilirubin AST ALT Alkaline Phosphatase Lactate Dehydrogenase Troponin T C-Reactive Protein Total Protein Albumin Prealbumin Triglycerides Cholesterol LDL Cholesterol Direct HDL Cholesterol Urine pH Urine WBC (Auto) Urine Creatinine Urine Total Protein Fluid Total Protein Vancomycin Trough Rheumatoid Factor Complement C4 Miscellaneous Test Crossmatch 10/14/16 10/14/16 10/14/16 11:44 17:13 23:28 WBC RBC Hgb Hct MCV MCH MCHC RDW Plt Count Lymph % (Auto) [place] % (Auto) Lymph # [place] # Baso # Seg Neutrophils % Seg Neuts % (Manual) Lymphocytes % (Manual) Monocytes % (Manual) Eosinophils % (Manual) Basophils % (Manual) Nucleated RBC % Seg Neutrophils # Seg Neutrophils # Man Lymphocytes # (Manual) Monocytes # (Manual) Eosinophils # (Manual) PT INR Fibrinogen dRVVT Confirm Interp Factor V Activity POC ABG pH POC ABG pCO2 POC ABG pO2 Sodium Potassium Chloride Carbon Dioxide BUN Creatinine Glucose POC Glucose 174 H 121 H 151 H Lactic Acid Calcium Phosphorus Magnesium Direct Bilirubin AST ALT Alkaline Phosphatase Lactate Dehydrogenase Troponin T C-Reactive Protein Total Protein Albumin Prealbumin Triglycerides Cholesterol LDL Cholesterol Direct HDL Cholesterol Urine pH Urine WBC (Auto) Urine Creatinine Urine Total Protein Fluid Total Protein Vancomycin Trough Rheumatoid Factor Complement C4 Miscellaneous Test Crossmatch 10/15/16 10/15/16 10/15/16 05:06 12:26 17:48 WBC RBC Hgb Hct MCV MCH MCHC RDW Plt Count Lymph % (Auto) [place] % (Auto) Lymph # [place] # Baso # Seg Neutrophils % Seg Neuts % (Manual) Lymphocytes % (Manual) Monocytes % (Manual) Eosinophils % (Manual) Basophils % (Manual) Nucleated RBC % Seg Neutrophils # Seg Neutrophils # Man Lymphocytes # (Manual) Monocytes # (Manual) Eosinophils # (Manual) PT INR Fibrinogen dRVVT Confirm Interp Factor V Activity POC ABG pH POC ABG pCO2 POC ABG pO2 Sodium Potassium Chloride Carbon Dioxide BUN Creatinine Glucose POC Glucose 151 H 149 H 153 H Lactic Acid Calcium Phosphorus Magnesium Direct Bilirubin AST ALT Alkaline Phosphatase Lactate Dehydrogenase Troponin T C-Reactive Protein Total Protein Albumin Prealbumin Triglycerides Cholesterol LDL Cholesterol Direct HDL Cholesterol Urine pH Urine WBC (Auto) Urine Creatinine Urine Total Protein Fluid Total Protein Vancomycin Trough Rheumatoid Factor Complement C4 Miscellaneous Test Crossmatch 10/15/16 10/15/16 10/16/16 Unknown Unknown 00:02 WBC 23.4 H RBC 2.78 L Hgb 8.5 L Hct 25.7 L MCV MCH MCHC RDW 18.7 H Plt Count Lymph % (Auto) [place] % (Auto) Lymph # [place] # Baso # Seg Neutrophils % Seg Neuts % (Manual) Lymphocytes % (Manual) Monocytes % (Manual) Eosinophils % (Manual) Basophils % (Manual) Nucleated RBC % Seg Neutrophils # Seg Neutrophils # Man Lymphocytes # (Manual) Monocytes # (Manual) Eosinophils # (Manual) PT INR Fibrinogen dRVVT Confirm Interp Factor V Activity POC ABG pH POC ABG pCO2 POC ABG pO2 Sodium Potassium Chloride Carbon Dioxide BUN 73 H Creatinine 2.3 H Glucose 120 H POC Glucose 137 H Lactic Acid Calcium Phosphorus Magnesium Direct Bilirubin AST ALT Alkaline Phosphatase Lactate Dehydrogenase Troponin T C-Reactive Protein Total Protein Albumin Prealbumin Triglycerides Cholesterol LDL Cholesterol Direct HDL Cholesterol Urine pH Urine WBC (Auto) Urine Creatinine Urine Total Protein Fluid Total Protein Vancomycin Trough Rheumatoid Factor Complement C4 Miscellaneous Test Crossmatch 10/16/16 10/16/16 10/16/16 05:44 06:25 06:25 WBC 22.5 H RBC 2.76 L Hgb 8.3 L Hct 25.2 L MCV MCH MCHC RDW 18.3 H Plt Count Lymph % (Auto) [place] % (Auto) Lymph # [place] # Baso # Seg Neutrophils % Seg Neuts % (Manual) Lymphocytes % (Manual) Monocytes % (Manual) Eosinophils % (Manual) Basophils % (Manual) Nucleated RBC % Seg Neutrophils # Seg Neutrophils # Man Lymphocytes # (Manual) Monocytes # (Manual) Eosinophils # (Manual) PT INR Fibrinogen dRVVT Confirm Interp Factor V Activity POC ABG pH POC ABG pCO2 POC ABG pO2 Sodium Potassium Chloride Carbon Dioxide BUN 92 H Creatinine 3.0 H Glucose 138 H POC Glucose 110 H Lactic Acid Calcium Phosphorus Magnesium Direct Bilirubin AST ALT Alkaline Phosphatase Lactate Dehydrogenase Troponin T C-Reactive Protein Total Protein Albumin Prealbumin Triglycerides Cholesterol LDL Cholesterol Direct HDL Cholesterol Urine pH Urine WBC (Auto) Urine Creatinine Urine Total Protein Fluid Total Protein Vancomycin Trough Rheumatoid Factor Complement C4 Miscellaneous Test Crossmatch 10/16/16 10/16/16 10/16/16 11:27 11:48 17:36 WBC RBC Hgb Hct MCV MCH MCHC RDW Plt Count Lymph % (Auto) [place] % (Auto) Lymph # [place] # Baso # Seg Neutrophils % Seg Neuts % (Manual) Lymphocytes % (Manual) Monocytes % (Manual) Eosinophils % (Manual) Basophils % (Manual) Nucleated RBC % Seg Neutrophils # Seg Neutrophils # Man Lymphocytes # (Manual) Monocytes # (Manual) Eosinophils # (Manual) PT INR Fibrinogen dRVVT Confirm Interp Factor V Activity POC ABG pH 7.582 H POC ABG pCO2 27.4 L POC ABG pO2 110 H Sodium Potassium Chloride Carbon Dioxide BUN Creatinine Glucose POC Glucose 121 H 133 H Lactic Acid Calcium Phosphorus Magnesium Direct Bilirubin AST ALT Alkaline Phosphatase Lactate Dehydrogenase Troponin T C-Reactive Protein Total Protein Albumin Prealbumin Triglycerides Cholesterol LDL Cholesterol Direct HDL Cholesterol Urine pH Urine WBC (Auto) Urine Creatinine Urine Total Protein Fluid Total Protein Vancomycin Trough Rheumatoid Factor Complement C4 Miscellaneous Test Crossmatch 10/16/16 10/17/16 10/17/16 20:48 04:24 04:24 WBC 21.4 H RBC 2.72 L Hgb 8.0 L Hct 25.2 L MCV MCH MCHC RDW 18.0 H Plt Count Lymph % (Auto) [place] % (Auto) Lymph # [place] # Baso # Seg Neutrophils % Seg Neuts % (Manual) Lymphocytes % (Manual) Monocytes % (Manual) Eosinophils % (Manual) Basophils % (Manual) Nucleated RBC % Seg Neutrophils # Seg Neutrophils # Man Lymphocytes # (Manual) Monocytes # (Manual) Eosinophils # (Manual) PT INR Fibrinogen dRVVT Confirm Interp Factor V Activity POC ABG pH 7.561 H POC ABG pCO2 24.4 L POC ABG pO2 77 L Sodium 148 H Potassium Chloride Carbon Dioxide BUN 104 H Creatinine 3.0 H Glucose 149 H POC Glucose Lactic Acid Calcium Phosphorus Magnesium Direct Bilirubin AST ALT Alkaline Phosphatase 138 H Lactate Dehydrogenase Troponin T C-Reactive Protein Total Protein 6.2 L Albumin 1.5 L Prealbumin Triglycerides Cholesterol LDL Cholesterol Direct HDL Cholesterol Urine pH Urine WBC (Auto) Urine Creatinine Urine Total Protein Fluid Total Protein Vancomycin Trough Rheumatoid Factor Complement C4 Miscellaneous Test Crossmatch 10/17/16 10/17/16 10/17/16 06:02 12:17 17:14 WBC RBC Hgb Hct MCV MCH MCHC RDW Plt Count Lymph % (Auto) [place] % (Auto) Lymph # [place] # Baso # Seg Neutrophils % Seg Neuts % (Manual) Lymphocytes % (Manual) Monocytes % (Manual) Eosinophils % (Manual) Basophils % (Manual) Nucleated RBC % Seg Neutrophils # Seg Neutrophils # Man Lymphocytes # (Manual) Monocytes # (Manual) Eosinophils # (Manual) PT INR Fibrinogen dRVVT Confirm Interp Factor V Activity POC ABG pH POC ABG pCO2 POC ABG pO2 Sodium Potassium Chloride Carbon Dioxide BUN Creatinine Glucose POC Glucose 170 H 167 H 126 H Lactic Acid Calcium Phosphorus Magnesium Direct Bilirubin AST ALT Alkaline Phosphatase Lactate Dehydrogenase Troponin T C-Reactive Protein Total Protein Albumin Prealbumin Triglycerides Cholesterol LDL Cholesterol Direct HDL Cholesterol Urine pH Urine WBC (Auto) Urine Creatinine Urine Total Protein Fluid Total Protein Vancomycin Trough Rheumatoid Factor Complement C4 Miscellaneous Test Crossmatch 10/17/16 10/18/16 10/18/16 23:17 04:00 04:00 WBC 20.7 H RBC 2.47 L Hgb 7.4 L Hct 22.9 L MCV MCH MCHC RDW 17.5 H Plt Count Lymph % (Auto) [place] % (Auto) Lymph # [place] # Baso # Seg Neutrophils % Seg Neuts % (Manual) Lymphocytes % (Manual) Monocytes % (Manual) Eosinophils % (Manual) Basophils % (Manual) Nucleated RBC % Seg Neutrophils # Seg Neutrophils # Man Lymphocytes # (Manual) Monocytes # (Manual) Eosinophils # (Manual) PT INR Fibrinogen dRVVT Confirm Interp Factor V Activity POC ABG pH POC ABG pCO2 POC ABG pO2 Sodium 149 H Potassium Chloride 107.9 H Carbon Dioxide 20 L BUN 117 H Creatinine 3.2 H Glucose 119 H POC Glucose 121 H Lactic Acid Calcium Phosphorus Magnesium Direct Bilirubin AST ALT Alkaline Phosphatase Lactate Dehydrogenase Troponin T C-Reactive Protein Total Protein Albumin Prealbumin Triglycerides Cholesterol LDL Cholesterol Direct HDL Cholesterol Urine pH Urine WBC (Auto) Urine Creatinine Urine Total Protein Fluid Total Protein Vancomycin Trough Rheumatoid Factor Complement C4 Miscellaneous Test Crossmatch 10/18/16 10/18/16 10/18/16 05:23 10:46 17:30 WBC RBC Hgb Hct MCV MCH MCHC RDW Plt Count Lymph % (Auto) [place] % (Auto) Lymph # [place] # Baso # Seg Neutrophils % Seg Neuts % (Manual) Lymphocytes % (Manual) Monocytes % (Manual) Eosinophils % (Manual) Basophils % (Manual) Nucleated RBC % Seg Neutrophils # Seg Neutrophils # Man Lymphocytes # (Manual) Monocytes # (Manual) Eosinophils # (Manual) PT INR Fibrinogen dRVVT Confirm Interp Factor V Activity POC ABG pH POC ABG pCO2 POC ABG pO2 Sodium Potassium Chloride Carbon Dioxide BUN Creatinine Glucose POC Glucose 119 H 155 H 124 H Lactic Acid Calcium Phosphorus Magnesium Direct Bilirubin AST ALT Alkaline Phosphatase Lactate Dehydrogenase Troponin T C-Reactive Protein Total Protein Albumin Prealbumin Triglycerides Cholesterol LDL Cholesterol Direct HDL Cholesterol Urine pH Urine WBC (Auto) Urine Creatinine Urine Total Protein Fluid Total Protein Vancomycin Trough Rheumatoid Factor Complement C4 Miscellaneous Test Crossmatch 10/19/16 10/19/16 10/19/16 04:00 04:00 05:25 WBC 17.4 H RBC 2.54 L Hgb 7.7 L Hct 23.6 L MCV MCH MCHC RDW 17.3 H Plt Count Lymph % (Auto) [place] % (Auto) Lymph # [place] # Baso # Seg Neutrophils % Seg Neuts % (Manual) Lymphocytes % (Manual) Monocytes % (Manual) Eosinophils % (Manual) Basophils % (Manual) Nucleated RBC % Seg Neutrophils # Seg Neutrophils # Man Lymphocytes # (Manual) Monocytes # (Manual) Eosinophils # (Manual) PT INR Fibrinogen dRVVT Confirm Interp Factor V Activity POC ABG pH POC ABG pCO2 POC ABG pO2 Sodium Potassium Chloride Carbon Dioxide BUN 72 H Creatinine 2.1 H Glucose 116 H POC Glucose 119 H Lactic Acid Calcium Phosphorus Magnesium Direct Bilirubin AST ALT Alkaline Phosphatase Lactate Dehydrogenase Troponin T C-Reactive Protein Total Protein Albumin Prealbumin Triglycerides Cholesterol LDL Cholesterol Direct HDL Cholesterol Urine pH Urine WBC (Auto) Urine Creatinine Urine Total Protein Fluid Total Protein Vancomycin Trough Rheumatoid Factor Complement C4 Miscellaneous Test Crossmatch 10/19/16 10/19/16 10/20/16 11:46 23:59 06:00 WBC RBC Hgb Hct MCV MCH MCHC RDW Plt Count Lymph % (Auto) [place] % (Auto) Lymph # [place] # Baso # Seg Neutrophils % Seg Neuts % (Manual) Lymphocytes % (Manual) Monocytes % (Manual) Eosinophils % (Manual) Basophils % (Manual) Nucleated RBC % Seg Neutrophils # Seg Neutrophils # Man Lymphocytes # (Manual) Monocytes # (Manual) Eosinophils # (Manual) PT INR Fibrinogen dRVVT Confirm Interp Factor V Activity POC ABG pH POC ABG pCO2 POC ABG pO2 Sodium Potassium Chloride Carbon Dioxide 17 L BUN 94 H Creatinine 2.7 H Glucose POC Glucose 116 H 117 H Lactic Acid Calcium Phosphorus Magnesium Direct Bilirubin AST ALT Alkaline Phosphatase Lactate Dehydrogenase Troponin T C-Reactive Protein Total Protein Albumin Prealbumin Triglycerides Cholesterol LDL Cholesterol Direct HDL Cholesterol Urine pH Urine WBC (Auto) Urine Creatinine Urine Total Protein Fluid Total Protein Vancomycin Trough Rheumatoid Factor Complement C4 Miscellaneous Test Crossmatch 10/20/16 10/20/16 10/20/16 06:00 11:49 16:00 WBC 19.7 H RBC 2.51 L Hgb 7.7 L Hct 23.5 L MCV MCH MCHC RDW 17.5 H Plt Count Lymph % (Auto) [place] % (Auto) Lymph # [place] # Baso # Seg Neutrophils % Seg Neuts % (Manual) Lymphocytes % (Manual) Monocytes % (Manual) Eosinophils % (Manual) Basophils % (Manual) Nucleated RBC % Seg Neutrophils # Seg Neutrophils # Man Lymphocytes # (Manual) Monocytes # (Manual) Eosinophils # (Manual) PT INR Fibrinogen dRVVT Confirm Interp Factor V Activity POC ABG pH POC ABG pCO2 POC ABG pO2 Sodium Potassium Chloride Carbon Dioxide BUN Creatinine Glucose POC Glucose 117 H Lactic Acid Calcium Phosphorus Magnesium Direct Bilirubin AST ALT Alkaline Phosphatase Lactate Dehydrogenase Troponin T C-Reactive Protein Total Protein Albumin Prealbumin Triglycerides Cholesterol LDL Cholesterol Direct HDL Cholesterol Urine pH Urine WBC (Auto) Urine Creatinine Urine Total Protein Fluid Total Protein Vancomycin Trough Rheumatoid Factor Complement C4 Miscellaneous Test Flexitest 1 H Crossmatch 10/20/16 10/20/16 10/21/16 18:36 23:39 04:00 WBC RBC Hgb Hct MCV MCH MCHC RDW Plt Count Lymph % (Auto) [place] % (Auto) Lymph # [place] # Baso # Seg Neutrophils % Seg Neuts % (Manual) Lymphocytes % (Manual) Monocytes % (Manual) Eosinophils % (Manual) Basophils % (Manual) Nucleated RBC % Seg Neutrophils # Seg Neutrophils # Man Lymphocytes # (Manual) Monocytes # (Manual) Eosinophils # (Manual) PT INR Fibrinogen dRVVT Confirm Interp Factor V Activity POC ABG pH POC ABG pCO2 POC ABG pO2 Sodium Potassium 5.4 H D Chloride Carbon Dioxide 15 L BUN 110 H Creatinine 3.0 H Glucose POC Glucose 127 H 114 H Lactic Acid Calcium Phosphorus Magnesium Direct Bilirubin AST ALT Alkaline Phosphatase Lactate Dehydrogenase Troponin T C-Reactive Protein Total Protein Albumin Prealbumin Triglycerides Cholesterol LDL Cholesterol Direct HDL Cholesterol Urine pH Urine WBC (Auto) Urine Creatinine Urine Total Protein Fluid Total Protein Vancomycin Trough Rheumatoid Factor Complement C4 Miscellaneous Test Crossmatch 10/21/16 10/21/16 10/22/16 05:54 23:46 05:18 WBC RBC Hgb Hct MCV MCH MCHC RDW Plt Count Lymph % (Auto) [place] % (Auto) Lymph # [place] # Baso # Seg Neutrophils % Seg Neuts % (Manual) Lymphocytes % (Manual) Monocytes % (Manual) Eosinophils % (Manual) Basophils % (Manual) Nucleated RBC % Seg Neutrophils # Seg Neutrophils # Man Lymphocytes # (Manual) Monocytes # (Manual) Eosinophils # (Manual) PT INR Fibrinogen dRVVT Confirm Interp Factor V Activity POC ABG pH POC ABG pCO2 POC ABG pO2 Sodium Potassium Chloride Carbon Dioxide BUN Creatinine Glucose POC Glucose 119 H 108 H 109 H Lactic Acid Calcium Phosphorus Magnesium Direct Bilirubin AST ALT Alkaline Phosphatase Lactate Dehydrogenase Troponin T C-Reactive Protein Total Protein Albumin Prealbumin Triglycerides Cholesterol LDL Cholesterol Direct HDL Cholesterol Urine pH Urine WBC (Auto) Urine Creatinine Urine Total Protein Fluid Total Protein Vancomycin Trough Rheumatoid Factor Complement C4 Miscellaneous Test Crossmatch 10/22/16 10/22/16 10/22/16 06:40 06:40 06:40 WBC 14.0 H RBC 2.03 L Hgb 7.0 L Hct 20.5 L MCV 98 H MCH 34 H MCHC 35 H RDW 17.8 H Plt Count Lymph % (Auto) [place] % (Auto) 9.9 H Lymph # [place] # 1.4 H Baso # 0.2 H Seg Neutrophils % 72.0 H Seg Neuts % (Manual) Lymphocytes % (Manual) Monocytes % (Manual) Eosinophils % (Manual) Basophils % (Manual) Nucleated RBC % Seg Neutrophils # 10.0 H Seg Neutrophils # Man Lymphocytes # (Manual) Monocytes # (Manual) Eosinophils # (Manual) PT INR Fibrinogen dRVVT Confirm Interp Factor V Activity POC ABG pH POC ABG pCO2 POC ABG pO2 Sodium 130 L D Potassium Chloride 92.4 L Carbon Dioxide 20 L BUN 50 H Creatinine 1.6 H Glucose 589 H* POC Glucose Lactic Acid Calcium 7.8 L D Phosphorus Magnesium 1.60 L Direct Bilirubin AST ALT Alkaline Phosphatase Lactate Dehydrogenase Troponin T C-Reactive Protein Total Protein Albumin Prealbumin Triglycerides Cholesterol LDL Cholesterol Direct HDL Cholesterol Urine pH Urine WBC (Auto) Urine Creatinine Urine Total Protein Fluid Total Protein Vancomycin Trough Rheumatoid Factor Complement C4 Miscellaneous Test Crossmatch 10/22/16 10/22/16 10/22/16 11:39 16:44 23:36 WBC RBC Hgb Hct MCV MCH MCHC RDW Plt Count Lymph % (Auto) [place] % (Auto) Lymph # [place] # Baso # Seg Neutrophils % Seg Neuts % (Manual) Lymphocytes % (Manual) Monocytes % (Manual) Eosinophils % (Manual) Basophils % (Manual) Nucleated RBC % Seg Neutrophils # Seg Neutrophils # Man Lymphocytes # (Manual) Monocytes # (Manual) Eosinophils # (Manual) PT INR Fibrinogen dRVVT Confirm Interp Factor V Activity POC ABG pH POC ABG pCO2 POC ABG pO2 Sodium Potassium Chloride Carbon Dioxide BUN Creatinine Glucose POC Glucose 142 H 163 H 123 H Lactic Acid Calcium Phosphorus Magnesium Direct Bilirubin AST ALT Alkaline Phosphatase Lactate Dehydrogenase Troponin T C-Reactive Protein Total Protein Albumin Prealbumin Triglycerides Cholesterol LDL Cholesterol Direct HDL Cholesterol Urine pH Urine WBC (Auto) Urine Creatinine Urine Total Protein Fluid Total Protein Vancomycin Trough Rheumatoid Factor Complement C4 Miscellaneous Test Crossmatch 10/23/16 10/23/16 10/23/16 04:58 06:00 12:12 WBC RBC Hgb Hct MCV MCH MCHC RDW Plt Count Lymph % (Auto) [place] % (Auto) Lymph # [place] # Baso # Seg Neutrophils % Seg Neuts % (Manual) Lymphocytes % (Manual) Monocytes % (Manual) Eosinophils % (Manual) Basophils % (Manual) Nucleated RBC % Seg Neutrophils # Seg Neutrophils # Man Lymphocytes # (Manual) Monocytes # (Manual) Eosinophils # (Manual) PT INR Fibrinogen dRVVT Confirm Interp Factor V Activity POC ABG pH POC ABG pCO2 POC ABG pO2 Sodium 133 L Potassium 3.5 L Chloride 96.1 L Carbon Dioxide 18 L BUN 76 H Creatinine 2.1 H Glucose POC Glucose 133 H 138 H Lactic Acid Calcium 8.3 L Phosphorus Magnesium Direct Bilirubin AST ALT Alkaline Phosphatase Lactate Dehydrogenase Troponin T C-Reactive Protein Total Protein Albumin Prealbumin Triglycerides Cholesterol LDL Cholesterol Direct HDL Cholesterol Urine pH Urine WBC (Auto) Urine Creatinine Urine Total Protein Fluid Total Protein Vancomycin Trough Rheumatoid Factor Complement C4 Miscellaneous Test Crossmatch 10/23/16 10/23/16 10/24/16 16:53 23:37 04:00 WBC RBC Hgb Hct MCV MCH MCHC RDW Plt Count Lymph % (Auto) [place] % (Auto) Lymph # [place] # Baso # Seg Neutrophils % Seg Neuts % (Manual) Lymphocytes % (Manual) Monocytes % (Manual) Eosinophils % (Manual) Basophils % (Manual) Nucleated RBC % Seg Neutrophils # Seg Neutrophils # Man Lymphocytes # (Manual) Monocytes # (Manual) Eosinophils # (Manual) PT INR Fibrinogen dRVVT Confirm Interp Factor V Activity POC ABG pH POC ABG pCO2 POC ABG pO2 Sodium 131 L Potassium Chloride 94.5 L Carbon Dioxide 19 L BUN 97 H Creatinine 2.6 H Glucose 110 H POC Glucose 125 H 123 H Lactic Acid Calcium 8.3 L Phosphorus Magnesium Direct Bilirubin AST ALT Alkaline Phosphatase Lactate Dehydrogenase Troponin T C-Reactive Protein Total Protein Albumin Prealbumin Triglycerides Cholesterol LDL Cholesterol Direct HDL Cholesterol Urine pH Urine WBC (Auto) Urine Creatinine Urine Total Protein Fluid Total Protein Vancomycin Trough Rheumatoid Factor Complement C4 Miscellaneous Test Crossmatch 10/24/16 10/24/16 10/24/16 07:49 11:39 17:52 WBC RBC Hgb 6.0 L Hct 19.7 L* MCV MCH MCHC RDW Plt Count Lymph % (Auto) [place] % (Auto) Lymph # [place] # Baso # Seg Neutrophils % Seg Neuts % (Manual) Lymphocytes % (Manual) Monocytes % (Manual) Eosinophils % (Manual) Basophils % (Manual) Nucleated RBC % Seg Neutrophils # Seg Neutrophils # Man Lymphocytes # (Manual) Monocytes # (Manual) Eosinophils # (Manual) PT INR Fibrinogen dRVVT Confirm Interp Factor V Activity POC ABG pH POC ABG pCO2 POC ABG pO2 Sodium Potassium Chloride Carbon Dioxide BUN Creatinine Glucose POC Glucose 106 H 158 H Lactic Acid Calcium Phosphorus Magnesium Direct Bilirubin AST ALT Alkaline Phosphatase Lactate Dehydrogenase Troponin T C-Reactive Protein Total Protein Albumin Prealbumin Triglycerides Cholesterol LDL Cholesterol Direct HDL Cholesterol Urine pH Urine WBC (Auto) Urine Creatinine Urine Total Protein Fluid Total Protein Vancomycin Trough Rheumatoid Factor Complement C4 Miscellaneous Test Crossmatch 10/24/16 10/24/16 10/24/16 20:00 22:27 Unknown WBC RBC Hgb 9.4 L D Hct 27.5 L D MCV MCH MCHC RDW Plt Count Lymph % (Auto) [place] % (Auto) Lymph # [place] # Baso # Seg Neutrophils % Seg Neuts % (Manual) Lymphocytes % (Manual) Monocytes % (Manual) Eosinophils % (Manual) Basophils % (Manual) Nucleated RBC % Seg Neutrophils # Seg Neutrophils # Man Lymphocytes # (Manual) Monocytes # (Manual) Eosinophils # (Manual) PT INR Fibrinogen dRVVT Confirm Interp Factor V Activity POC ABG pH POC ABG pCO2 POC ABG pO2 Sodium Potassium Chloride Carbon Dioxide BUN Creatinine Glucose POC Glucose 125 H Lactic Acid Calcium Phosphorus Magnesium Direct Bilirubin AST ALT Alkaline Phosphatase Lactate Dehydrogenase Troponin T C-Reactive Protein Total Protein Albumin Prealbumin Triglycerides Cholesterol LDL Cholesterol Direct HDL Cholesterol Urine pH Urine WBC (Auto) Urine Creatinine Urine Total Protein Fluid Total Protein Vancomycin Trough Rheumatoid Factor Complement C4 Miscellaneous Test Crossmatch See Detail 10/25/16 10/25/16 10/25/16 04:00 04:00 04:00 WBC 14.2 H RBC 2.98 L Hgb 9.0 L Hct 26.2 L MCV MCH MCHC RDW 16.6 H Plt Count Lymph % (Auto) [place] % (Auto) 10.7 H Lymph # [place] # 1.5 H Baso # Seg Neutrophils % 73.6 H Seg Neuts % (Manual) Lymphocytes % (Manual) Monocytes % (Manual) Eosinophils % (Manual) Basophils % (Manual) Nucleated RBC % Seg Neutrophils # 10.5 H Seg Neutrophils # Man Lymphocytes # (Manual) Monocytes # (Manual) Eosinophils # (Manual) PT INR Fibrinogen dRVVT Confirm Interp Factor V Activity POC ABG pH POC ABG pCO2 POC ABG pO2 Sodium 132 L Potassium Chloride 94.7 L Carbon Dioxide BUN 51 H Creatinine 1.6 H Glucose 130 H POC Glucose Lactic Acid Calcium 8.3 L Phosphorus 1.60 L D Magnesium Direct Bilirubin AST ALT Alkaline Phosphatase Lactate Dehydrogenase Troponin T C-Reactive Protein Total Protein Albumin Prealbumin Triglycerides Cholesterol LDL Cholesterol Direct HDL Cholesterol Urine pH Urine WBC (Auto) Urine Creatinine Urine Total Protein Fluid Total Protein Vancomycin Trough Rheumatoid Factor Complement C4 Miscellaneous Test Crossmatch 10/25/16 10/25/16 10/25/16 04:32 11:48 17:22 WBC RBC Hgb Hct MCV MCH MCHC RDW Plt Count Lymph % (Auto) [place] % (Auto) Lymph # [place] # Baso # Seg Neutrophils % Seg Neuts % (Manual) Lymphocytes % (Manual) Monocytes % (Manual) Eosinophils % (Manual) Basophils % (Manual) Nucleated RBC % Seg Neutrophils # Seg Neutrophils # Man Lymphocytes # (Manual) Monocytes # (Manual) Eosinophils # (Manual) PT INR Fibrinogen dRVVT Confirm Interp Factor V Activity POC ABG pH POC ABG pCO2 POC ABG pO2 Sodium Potassium Chloride Carbon Dioxide BUN Creatinine Glucose POC Glucose 124 H 171 H 120 H Lactic Acid Calcium Phosphorus Magnesium Direct Bilirubin AST ALT Alkaline Phosphatase Lactate Dehydrogenase Troponin T C-Reactive Protein Total Protein Albumin Prealbumin Triglycerides Cholesterol LDL Cholesterol Direct HDL Cholesterol Urine pH Urine WBC (Auto) Urine Creatinine Urine Total Protein Fluid Total Protein Vancomycin Trough Rheumatoid Factor Complement C4 Miscellaneous Test Crossmatch 10/26/16 10/26/16 10/26/16 04:54 07:06 07:06 WBC 16.9 H RBC 3.06 L Hgb 9.1 L Hct 26.9 L MCV MCH MCHC RDW 16.9 H Plt Count Lymph % (Auto) [place] % (Auto) Lymph # [place] # Baso # Seg Neutrophils % Seg Neuts % (Manual) 71.0 H Lymphocytes % (Manual) 5.0 L Monocytes % (Manual) 12.0 H Eosinophils % (Manual) Basophils % (Manual) Nucleated RBC % Seg Neutrophils # Seg Neutrophils # Man 12.0 H Lymphocytes # (Manual) 0.8 L Monocytes # (Manual) 2.0 H Eosinophils # (Manual) PT INR Fibrinogen dRVVT Confirm Interp Factor V Activity POC ABG pH POC ABG pCO2 POC ABG pO2 Sodium 135 L Potassium Chloride 97.1 L Carbon Dioxide BUN 73 H Creatinine 2.2 H Glucose 117 H POC Glucose 123 H Lactic Acid Calcium Phosphorus 1.70 L Magnesium Direct Bilirubin AST ALT Alkaline Phosphatase Lactate Dehydrogenase Troponin T C-Reactive Protein Total Protein Albumin Prealbumin Triglycerides Cholesterol LDL Cholesterol Direct HDL Cholesterol Urine pH Urine WBC (Auto) Urine Creatinine Urine Total Protein Fluid Total Protein Vancomycin Trough Rheumatoid Factor Complement C4 Miscellaneous Test Crossmatch 10/26/16 10/26/16 10/26/16 12:12 17:29 23:42 WBC RBC Hgb Hct MCV MCH MCHC RDW Plt Count Lymph % (Auto) [place] % (Auto) Lymph # [place] # Baso # Seg Neutrophils % Seg Neuts % (Manual) Lymphocytes % (Manual) Monocytes % (Manual) Eosinophils % (Manual) Basophils % (Manual) Nucleated RBC % Seg Neutrophils # Seg Neutrophils # Man Lymphocytes # (Manual) Monocytes # (Manual) Eosinophils # (Manual) PT INR Fibrinogen dRVVT Confirm Interp Factor V Activity POC ABG pH POC ABG pCO2 POC ABG pO2 Sodium Potassium Chloride Carbon Dioxide BUN Creatinine Glucose POC Glucose 126 H 161 H 118 H Lactic Acid Calcium Phosphorus Magnesium Direct Bilirubin AST ALT Alkaline Phosphatase Lactate Dehydrogenase Troponin T C-Reactive Protein Total Protein Albumin Prealbumin Triglycerides Cholesterol LDL Cholesterol Direct HDL Cholesterol Urine pH Urine WBC (Auto) Urine Creatinine Urine Total Protein Fluid Total Protein Vancomycin Trough Rheumatoid Factor Complement C4 Miscellaneous Test Crossmatch 10/27/16 10/27/16 10/27/16 05:03 06:30 06:30 WBC 13.9 H RBC 3.09 L Hgb 9.2 L Hct 27.5 L MCV MCH MCHC RDW 17.0 H Plt Count Lymph % (Auto) [place] % (Auto) Lymph # [place] # Baso # Seg Neutrophils % Seg Neuts % (Manual) 78.0 H Lymphocytes % (Manual) Monocytes % (Manual) Eosinophils % (Manual) Basophils % (Manual) Nucleated RBC % 2.0 H Seg Neutrophils # Seg Neutrophils # Man 10.8 H Lymphocytes # (Manual) Monocytes # (Manual) 1.0 H Eosinophils # (Manual) PT INR Fibrinogen dRVVT Confirm Interp Factor V Activity POC ABG pH POC ABG pCO2 POC ABG pO2 Sodium Potassium Chloride Carbon Dioxide BUN 40 H Creatinine 1.5 H Glucose 135 H POC Glucose 107 H Lactic Acid Calcium 8.3 L Phosphorus 1.30 L D Magnesium Direct Bilirubin AST ALT Alkaline Phosphatase Lactate Dehydrogenase Troponin T C-Reactive Protein Total Protein Albumin Prealbumin Triglycerides Cholesterol LDL Cholesterol Direct HDL Cholesterol Urine pH Urine WBC (Auto) Urine Creatinine Urine Total Protein Fluid Total Protein Vancomycin Trough Rheumatoid Factor Complement C4 Miscellaneous Test Crossmatch 10/27/16 10/27/16 10/27/16 13:27 18:07 23:40 WBC RBC Hgb Hct MCV MCH MCHC RDW Plt Count Lymph % (Auto) [place] % (Auto) Lymph # [place] # Baso # Seg Neutrophils % Seg Neuts % (Manual) Lymphocytes % (Manual) Monocytes % (Manual) Eosinophils % (Manual) Basophils % (Manual) Nucleated RBC % Seg Neutrophils # Seg Neutrophils # Man Lymphocytes # (Manual) Monocytes # (Manual) Eosinophils # (Manual) PT INR Fibrinogen dRVVT Confirm Interp Factor V Activity POC ABG pH POC ABG pCO2 POC ABG pO2 Sodium Potassium Chloride Carbon Dioxide BUN Creatinine Glucose POC Glucose 117 H 121 H 118 H Lactic Acid Calcium Phosphorus Magnesium Direct Bilirubin AST ALT Alkaline Phosphatase Lactate Dehydrogenase Troponin T C-Reactive Protein Total Protein Albumin Prealbumin Triglycerides Cholesterol LDL Cholesterol Direct HDL Cholesterol Urine pH Urine WBC (Auto) Urine Creatinine Urine Total Protein Fluid Total Protein Vancomycin Trough Rheumatoid Factor Complement C4 Miscellaneous Test Crossmatch 10/28/16 10/28/16 10/28/16 05:48 06:45 06:45 WBC 14.7 H RBC 3.05 L Hgb 9.0 L Hct 26.9 L MCV MCH MCHC RDW 16.8 H Plt Count Lymph % (Auto) 8.[address] [place] % (Auto) 8.4 H Lymph # [place] # 1.2 H Baso # Seg Neutrophils % 81.9 H Seg Neuts % (Manual) Lymphocytes % (Manual) Monocytes % (Manual) Eosinophils % (Manual) Basophils % (Manual) Nucleated RBC % Seg Neutrophils # 12.1 H Seg Neutrophils # Man Lymphocytes # (Manual) Monocytes # (Manual) Eosinophils # (Manual) PT INR Fibrinogen dRVVT Confirm Interp Factor V Activity POC ABG pH POC ABG pCO2 POC ABG pO2 Sodium Potassium Chloride Carbon Dioxide BUN 60 H Creatinine 1.9 H Glucose 120 H POC Glucose 114 H Lactic Acid Calcium Phosphorus Magnesium Direct Bilirubin AST ALT Alkaline Phosphatase Lactate Dehydrogenase Troponin T C-Reactive Protein Total Protein Albumin Prealbumin Triglycerides Cholesterol LDL Cholesterol Direct HDL Cholesterol Urine pH Urine WBC (Auto) Urine Creatinine Urine Total Protein Fluid Total Protein Vancomycin Trough Rheumatoid Factor Complement C4 Miscellaneous Test Crossmatch 10/28/16 10/28/16 10/29/16 17:08 23:50 05:10 WBC RBC Hgb Hct MCV MCH MCHC RDW Plt Count Lymph % (Auto) [place] % (Auto) Lymph # [place] # Baso # Seg Neutrophils % Seg Neuts % (Manual) Lymphocytes % (Manual) Monocytes % (Manual) Eosinophils % (Manual) Basophils % (Manual) Nucleated RBC % Seg Neutrophils # Seg Neutrophils # Man Lymphocytes # (Manual) Monocytes # (Manual) Eosinophils # (Manual) PT INR Fibrinogen dRVVT Confirm Interp Factor V Activity POC ABG pH POC ABG pCO2 POC ABG pO2 Sodium Potassium Chloride Carbon Dioxide BUN Creatinine Glucose POC Glucose 109 H 110 H 124 H Lactic Acid Calcium Phosphorus Magnesium Direct Bilirubin AST ALT Alkaline Phosphatase Lactate Dehydrogenase Troponin T C-Reactive Protein Total Protein Albumin Prealbumin Triglycerides Cholesterol LDL Cholesterol Direct HDL Cholesterol Urine pH Urine WBC (Auto) Urine Creatinine Urine Total Protein Fluid Total Protein Vancomycin Trough Rheumatoid Factor Complement C4 Miscellaneous Test Crossmatch 10/29/16 10/29/16 10/29/16 07:45 07:45 12:19 WBC 14.7 H RBC 3.15 L Hgb 9.3 L Hct 28.9 L MCV MCH MCHC RDW 17.0 H Plt Count Lymph % (Auto) 11.[address] [place] % (Auto) 8.6 H Lymph # [place] # 1.3 H Baso # Seg Neutrophils % 78.1 H Seg Neuts % (Manual) Lymphocytes % (Manual) Monocytes % (Manual) Eosinophils % (Manual) Basophils % (Manual) Nucleated RBC % Seg Neutrophils # 11.4 H Seg Neutrophils # Man Lymphocytes # (Manual) Monocytes # (Manual) Eosinophils # (Manual) PT INR Fibrinogen dRVVT Confirm Interp Factor V Activity POC ABG pH POC ABG pCO2 POC ABG pO2 Sodium Potassium 5.1 H Chloride Carbon Dioxide 19 L BUN 78 H Creatinine 2.2 H Glucose 116 H POC Glucose 118 H Lactic Acid Calcium Phosphorus Magnesium Direct Bilirubin AST ALT Alkaline Phosphatase Lactate Dehydrogenase Troponin T C-Reactive Protein Total Protein Albumin Prealbumin Triglycerides Cholesterol LDL Cholesterol Direct HDL Cholesterol Urine pH Urine WBC (Auto) Urine Creatinine Urine Total Protein Fluid Total Protein Vancomycin Trough Rheumatoid Factor Complement C4 Miscellaneous Test Crossmatch 10/29/16 10/30/16 10/30/16 17:49 01:52 03:28 WBC RBC Hgb Hct MCV MCH MCHC RDW Plt Count Lymph % (Auto) [place] % (Auto) Lymph # [place] # Baso # Seg Neutrophils % Seg Neuts % (Manual) Lymphocytes % (Manual) Monocytes % (Manual) Eosinophils % (Manual) Basophils % (Manual) Nucleated RBC % Seg Neutrophils # Seg Neutrophils # Man Lymphocytes # (Manual) Monocytes # (Manual) Eosinophils # (Manual) PT INR Fibrinogen dRVVT Confirm Interp Factor V Activity POC ABG pH POC ABG pCO2 POC ABG pO2 Sodium Potassium 5.4 H Chloride 97.5 L Carbon Dioxide 19 L BUN 90 H Creatinine 2.5 H Glucose POC Glucose 120 H 129 H Lactic Acid Calcium Phosphorus 5.20 H Magnesium Direct Bilirubin AST ALT Alkaline Phosphatase Lactate Dehydrogenase Troponin T C-Reactive Protein Total Protein Albumin Prealbumin Triglycerides Cholesterol LDL Cholesterol Direct HDL Cholesterol Urine pH Urine WBC (Auto) Urine Creatinine Urine Total Protein Fluid Total Protein Vancomycin Trough Rheumatoid Factor Complement C4 Miscellaneous Test Crossmatch 10/30/16 10/30/16 10/30/16 03:28 08:19 08:19 WBC 11.6 H 15.9 H RBC 2.75 L 2.82 L Hgb 7.9 L 8.3 L Hct 24.2 L 25.2 L MCV MCH MCHC RDW 16.7 H 17.2 H Plt Count Lymph % (Auto) [place] % (Auto) 9.8 H Lymph # [place] # 1.1 H Baso # Seg Neutrophils % 74.2 H Seg Neuts % (Manual) Lymphocytes % (Manual) Monocytes % (Manual) Eosinophils % (Manual) Basophils % (Manual) Nucleated RBC % Seg Neutrophils # 8.6 H Seg Neutrophils # Man Lymphocytes # (Manual) Monocytes # (Manual) Eosinophils # (Manual) PT INR Fibrinogen dRVVT Confirm Interp Factor V Activity POC ABG pH POC ABG pCO2 POC ABG pO2 Sodium Potassium 5.3 H Chloride 97.4 L Carbon Dioxide 19 L BUN 93 H Creatinine 2.6 H Glucose POC Glucose Lactic Acid Calcium Phosphorus Magnesium Direct Bilirubin AST ALT Alkaline Phosphatase Lactate Dehydrogenase Troponin T C-Reactive Protein Total Protein Albumin Prealbumin Triglycerides Cholesterol LDL Cholesterol Direct HDL Cholesterol Urine pH Urine WBC (Auto) Urine Creatinine Urine Total Protein Fluid Total Protein Vancomycin Trough Rheumatoid Factor Complement C4 Miscellaneous Test Crossmatch 10/30/16 10/30/16 10/31/16 17:11 23:56 00:40 WBC RBC Hgb Hct MCV MCH MCHC RDW Plt Count Lymph % (Auto) [place] % (Auto) Lymph # [place] # Baso # Seg Neutrophils % Seg Neuts % (Manual) Lymphocytes % (Manual) Monocytes % (Manual) Eosinophils % (Manual) Basophils % (Manual) Nucleated RBC % Seg Neutrophils # Seg Neutrophils # Man Lymphocytes # (Manual) Monocytes # (Manual) Eosinophils # (Manual) PT INR Fibrinogen dRVVT Confirm Interp Factor V Activity POC ABG pH POC ABG pCO2 POC ABG pO2 Sodium Potassium Chloride Carbon Dioxide BUN Creatinine Glucose POC Glucose 106 H 117 H 120 H Lactic Acid Calcium Phosphorus Magnesium Direct Bilirubin AST ALT Alkaline Phosphatase Lactate Dehydrogenase Troponin T C-Reactive Protein Total Protein Albumin Prealbumin Triglycerides Cholesterol LDL Cholesterol Direct HDL Cholesterol Urine pH Urine WBC (Auto) Urine Creatinine Urine Total Protein Fluid Total Protein Vancomycin Trough Rheumatoid Factor Complement C4 Miscellaneous Test Crossmatch 10/31/16 10/31/16 10/31/16 05:43 07:15 07:15 WBC 12.1 H RBC 2.63 L Hgb 7.7 L Hct 23.3 L MCV MCH MCHC RDW 16.7 H Plt Count Lymph % (Auto) 11.[address] [place] % (Auto) 7.7 H Lymph # [place] # 0.9 H Baso # Seg Neutrophils % 78.0 H Seg Neuts % (Manual) Lymphocytes % (Manual) Monocytes % (Manual) Eosinophils % (Manual) Basophils % (Manual) Nucleated RBC % Seg Neutrophils # 9.4 H Seg Neutrophils # Man Lymphocytes # (Manual) Monocytes # (Manual) Eosinophils # (Manual) PT INR Fibrinogen dRVVT Confirm Interp Factor V Activity POC ABG pH POC ABG pCO2 POC ABG pO2 Sodium Potassium Chloride 96.4 L Carbon Dioxide 21 L BUN 99 H Creatinine 2.6 H Glucose 144 H POC Glucose 125 H Lactic Acid Calcium Phosphorus 4.80 H Magnesium Direct Bilirubin AST ALT Alkaline Phosphatase Lactate Dehydrogenase Troponin T C-Reactive Protein Total Protein Albumin Prealbumin Triglycerides Cholesterol LDL Cholesterol Direct HDL Cholesterol Urine pH Urine WBC (Auto) Urine Creatinine Urine Total Protein Fluid Total Protein Vancomycin Trough Rheumatoid Factor Complement C4 Miscellaneous Test Crossmatch 10/31/16 10/31/16 11/01/16 11:46 18:34 00:20 WBC RBC Hgb Hct MCV MCH MCHC RDW Plt Count Lymph % (Auto) [place] % (Auto) Lymph # [place] # Baso # Seg Neutrophils % Seg Neuts % (Manual) Lymphocytes % (Manual) Monocytes % (Manual) Eosinophils % (Manual) Basophils % (Manual) Nucleated RBC % Seg Neutrophils # Seg Neutrophils # Man Lymphocytes # (Manual) Monocytes # (Manual) Eosinophils # (Manual) PT INR Fibrinogen dRVVT Confirm Interp Factor V Activity POC ABG pH POC ABG pCO2 POC ABG pO2 Sodium Potassium Chloride Carbon Dioxide BUN Creatinine Glucose POC Glucose 159 H 140 H 132 H Lactic Acid Calcium Phosphorus Magnesium Direct Bilirubin AST ALT Alkaline Phosphatase Lactate Dehydrogenase Troponin T C-Reactive Protein Total Protein Albumin Prealbumin Triglycerides Cholesterol LDL Cholesterol Direct HDL Cholesterol Urine pH Urine WBC (Auto) Urine Creatinine Urine Total Protein Fluid Total Protein Vancomycin Trough Rheumatoid Factor Complement C4 Miscellaneous Test Crossmatch 11/01/16 11/01/16 11/01/16 04:55 04:55 06:11 WBC 11.2 H RBC 2.68 L Hgb 7.5 L Hct 23.7 L MCV MCH MCHC RDW 16.1 H Plt Count Lymph % (Auto) [place] % (Auto) 9.8 H Lymph # [place] # 1.1 H Baso # Seg Neutrophils % 70.8 H Seg Neuts % (Manual) Lymphocytes % (Manual) Monocytes % (Manual) Eosinophils % (Manual) Basophils % (Manual) Nucleated RBC % Seg Neutrophils # 7.9 H Seg Neutrophils # Man Lymphocytes # (Manual) Monocytes # (Manual) Eosinophils # (Manual) PT INR Fibrinogen dRVVT Confirm Interp Factor V Activity POC ABG pH POC ABG pCO2 POC ABG pO2 Sodium Potassium 3.3 L D Chloride Carbon Dioxide BUN 61 H Creatinine 1.9 H Glucose 114 H POC Glucose 115 H Lactic Acid Calcium Phosphorus 1.80 L D Magnesium Direct Bilirubin AST ALT Alkaline Phosphatase Lactate Dehydrogenase Troponin T C-Reactive Protein Total Protein Albumin Prealbumin Triglycerides Cholesterol LDL Cholesterol Direct HDL Cholesterol Urine pH Urine WBC (Auto) Urine Creatinine Urine Total Protein Fluid Total Protein Vancomycin Trough Rheumatoid Factor Complement C4 Miscellaneous Test Crossmatch 11/01/16 11/01/16 11/01/16 12:29 18:23 23:58 WBC RBC Hgb Hct MCV MCH MCHC RDW Plt Count Lymph % (Auto) [place] % (Auto) Lymph # [place] # Baso # Seg Neutrophils % Seg Neuts % (Manual) Lymphocytes % (Manual) Monocytes % (Manual) Eosinophils % (Manual) Basophils % (Manual) Nucleated RBC % Seg Neutrophils # Seg Neutrophils # Man Lymphocytes # (Manual) Monocytes # (Manual) Eosinophils # (Manual) PT INR Fibrinogen dRVVT Confirm Interp Factor V Activity POC ABG pH POC ABG pCO2 POC ABG pO2 Sodium Potassium Chloride Carbon Dioxide BUN Creatinine Glucose POC Glucose 142 H 143 H 128 H Lactic Acid Calcium Phosphorus Magnesium Direct Bilirubin AST ALT Alkaline Phosphatase Lactate Dehydrogenase Troponin T C-Reactive Protein Total Protein Albumin Prealbumin Triglycerides Cholesterol LDL Cholesterol Direct HDL Cholesterol Urine pH Urine WBC (Auto) Urine Creatinine Urine Total Protein Fluid Total Protein Vancomycin Trough Rheumatoid Factor Complement C4 Miscellaneous Test Crossmatch 11/02/16 11/02/16 11/02/16 04:16 05:29 11:58 WBC RBC Hgb Hct MCV MCH MCHC RDW Plt Count Lymph % (Auto) [place] % (Auto) Lymph # [place] # Baso # Seg Neutrophils % Seg Neuts % (Manual) Lymphocytes % (Manual) Monocytes % (Manual) Eosinophils % (Manual) Basophils % (Manual) Nucleated RBC % Seg Neutrophils # Seg Neutrophils # Man Lymphocytes # (Manual) Monocytes # (Manual) Eosinophils # (Manual) PT INR Fibrinogen dRVVT Confirm Interp Factor V Activity POC ABG pH POC ABG pCO2 POC ABG pO2 Sodium Potassium 3.1 L Chloride Carbon Dioxide BUN 73 H Creatinine 2.3 H Glucose 112 H POC Glucose 135 H 149 H Lactic Acid Calcium Phosphorus Magnesium Direct Bilirubin AST ALT Alkaline Phosphatase Lactate Dehydrogenase Troponin T C-Reactive Protein Total Protein Albumin Prealbumin Triglycerides Cholesterol LDL Cholesterol Direct HDL Cholesterol Urine pH Urine WBC (Auto) Urine Creatinine Urine Total Protein Fluid Total Protein Vancomycin Trough Rheumatoid Factor Complement C4 Miscellaneous Test Crossmatch 11/02/16 11/02/16 11/03/16 17:42 22:54 06:00 WBC RBC Hgb Hct MCV MCH MCHC RDW Plt Count Lymph % (Auto) [place] % (Auto) Lymph # [place] # Baso # Seg Neutrophils % Seg Neuts % (Manual) Lymphocytes % (Manual) Monocytes % (Manual) Eosinophils % (Manual) Basophils % (Manual) Nucleated RBC % Seg Neutrophils # Seg Neutrophils # Man Lymphocytes # (Manual) Monocytes # (Manual) Eosinophils # (Manual) PT INR Fibrinogen dRVVT Confirm Interp Factor V Activity POC ABG pH POC ABG pCO2 POC ABG pO2 Sodium Potassium Chloride 96.7 L Carbon Dioxide BUN 41 H Creatinine 1.5 H Glucose 145 H POC Glucose 182 H 115 H Lactic Acid Calcium Phosphorus 1.60 L D Magnesium 1.50 L Direct Bilirubin AST ALT Alkaline Phosphatase Lactate Dehydrogenase Troponin T C-Reactive Protein Total Protein Albumin Prealbumin Triglycerides Cholesterol LDL Cholesterol Direct HDL Cholesterol Urine pH Urine WBC (Auto) Urine Creatinine Urine Total Protein Fluid Total Protein Vancomycin Trough Rheumatoid Factor Complement C4 Miscellaneous Test Crossmatch 11/03/16 11/03/16 11/03/16 11:53 17:45 23:37 WBC RBC Hgb Hct MCV MCH MCHC RDW Plt Count Lymph % (Auto) [place] % (Auto) Lymph # [place] # Baso # Seg Neutrophils % Seg Neuts % (Manual) Lymphocytes % (Manual) Monocytes % (Manual) Eosinophils % (Manual) Basophils % (Manual) Nucleated RBC % Seg Neutrophils # Seg Neutrophils # Man Lymphocytes # (Manual) Monocytes # (Manual) Eosinophils # (Manual) PT INR Fibrinogen dRVVT Confirm Interp Factor V Activity POC ABG pH POC ABG pCO2 POC ABG pO2 Sodium Potassium Chloride Carbon Dioxide BUN Creatinine Glucose POC Glucose 131 H 134 H 113 H Lactic Acid Calcium Phosphorus Magnesium Direct Bilirubin AST ALT Alkaline Phosphatase Lactate Dehydrogenase Troponin T C-Reactive Protein Total Protein Albumin Prealbumin Triglycerides Cholesterol LDL Cholesterol Direct HDL Cholesterol Urine pH Urine WBC (Auto) Urine Creatinine Urine Total Protein Fluid Total Protein Vancomycin Trough Rheumatoid Factor Complement C4 Miscellaneous Test Crossmatch 11/04/16 11/04/16 11/04/16 05:41 06:00 12:10 WBC RBC Hgb Hct MCV MCH MCHC RDW Plt Count Lymph % (Auto) [place] % (Auto) Lymph # [place] # Baso # Seg Neutrophils % Seg Neuts % (Manual) Lymphocytes % (Manual) Monocytes % (Manual) Eosinophils % (Manual) Basophils % (Manual) Nucleated RBC % Seg Neutrophils # Seg Neutrophils # Man Lymphocytes # (Manual) Monocytes # (Manual) Eosinophils # (Manual) PT INR Fibrinogen dRVVT Confirm Interp Factor V Activity POC ABG pH POC ABG pCO2 POC ABG pO2 Sodium Potassium Chloride 96.7 L Carbon Dioxide BUN 52 H Creatinine 1.9 H Glucose 126 H POC Glucose 137 H 191 H Lactic Acid Calcium Phosphorus Magnesium Direct Bilirubin AST ALT Alkaline Phosphatase Lactate Dehydrogenase Troponin T C-Reactive Protein Total Protein Albumin Prealbumin Triglycerides Cholesterol LDL Cholesterol Direct HDL Cholesterol Urine pH Urine WBC (Auto) Urine Creatinine Urine Total Protein Fluid Total Protein Vancomycin Trough Rheumatoid Factor Complement C4 Miscellaneous Test Crossmatch 11/04/16 11/05/16 11/05/16 22:57 03:10 05:10 WBC RBC Hgb Hct MCV MCH MCHC RDW Plt Count Lymph % (Auto) [place] % (Auto) Lymph # [place] # Baso # Seg Neutrophils % Seg Neuts % (Manual) Lymphocytes % (Manual) Monocytes % (Manual) Eosinophils % (Manual) Basophils % (Manual) Nucleated RBC % Seg Neutrophils # Seg Neutrophils # Man Lymphocytes # (Manual) Monocytes # (Manual) Eosinophils # (Manual) PT INR Fibrinogen dRVVT Confirm Interp Factor V Activity POC ABG pH POC ABG pCO2 POC ABG pO2 Sodium 136 L Potassium Chloride 97.2 L Carbon Dioxide BUN 32 H Creatinine 1.3 H Glucose 123 H POC Glucose 125 H 108 H Lactic Acid Calcium 7.8 L Phosphorus Magnesium Direct Bilirubin AST ALT Alkaline Phosphatase Lactate Dehydrogenase Troponin T C-Reactive Protein Total Protein Albumin Prealbumin Triglycerides Cholesterol LDL Cholesterol Direct HDL Cholesterol Urine pH Urine WBC (Auto) Urine Creatinine Urine Total Protein Fluid Total Protein Vancomycin Trough Rheumatoid Factor Complement C4 Miscellaneous Test Crossmatch 11/05/16 11/05/16 11/05/16 12:23 13:09 13:25 WBC RBC Hgb Hct MCV MCH MCHC RDW Plt Count Lymph % (Auto) [place] % (Auto) Lymph # [place] # Baso # Seg Neutrophils % Seg Neuts % (Manual) Lymphocytes % (Manual) Monocytes % (Manual) Eosinophils % (Manual) Basophils % (Manual) Nucleated RBC % Seg Neutrophils # Seg Neutrophils # Man Lymphocytes # (Manual) Monocytes # (Manual) Eosinophils # (Manual) PT INR Fibrinogen dRVVT Confirm Interp Factor V Activity POC ABG pH POC ABG pCO2 POC ABG pO2 Sodium Potassium Chloride Carbon Dioxide BUN Creatinine Glucose POC Glucose 124 H Lactic Acid Calcium Phosphorus Magnesium Direct Bilirubin AST ALT Alkaline Phosphatase Lactate Dehydrogenase Troponin T C-Reactive Protein 11.40 H Total Protein Albumin Prealbumin Triglycerides Cholesterol LDL Cholesterol Direct HDL Cholesterol Urine pH 9.0 H Urine WBC (Auto) Urine Creatinine Urine Total Protein Fluid Total Protein Vancomycin Trough Rheumatoid Factor Complement C4 Miscellaneous Test Crossmatch 11/05/16 11/05/16 11/05/16 13:25 17:54 23:42 WBC RBC Hgb Hct MCV MCH MCHC RDW Plt Count Lymph % (Auto) [place] % (Auto) Lymph # [place] # Baso # Seg Neutrophils % Seg Neuts % (Manual) Lymphocytes % (Manual) Monocytes % (Manual) Eosinophils % (Manual) Basophils % (Manual) Nucleated RBC % Seg Neutrophils # Seg Neutrophils # Man Lymphocytes # (Manual) Monocytes # (Manual) Eosinophils # (Manual) PT INR Fibrinogen dRVVT Confirm Interp Factor V Activity POC ABG pH POC ABG pCO2 POC ABG pO2 Sodium Potassium Chloride Carbon Dioxide BUN Creatinine Glucose POC Glucose 114 H 134 H Lactic Acid Calcium Phosphorus Magnesium Direct Bilirubin AST ALT Alkaline Phosphatase Lactate Dehydrogenase Troponin T C-Reactive Protein Total Protein Albumin Prealbumin Triglycerides Cholesterol LDL Cholesterol Direct HDL Cholesterol Urine pH Urine WBC (Auto) Urine Creatinine Urine Total Protein Fluid Total Protein Vancomycin Trough Rheumatoid Factor Complement C4 Miscellaneous Test Flexitest 1 H Crossmatch 11/06/16 11/06/16 11/06/16 04:56 06:25 06:25 WBC RBC 2.50 L Hgb 7.3 L Hct 22.5 L MCV MCH MCHC RDW 16.9 H Plt Count Lymph % (Auto) [place] % (Auto) 10.5 H Lymph # [place] # 1.1 H Baso # Seg Neutrophils % Seg Neuts % (Manual) Lymphocytes % (Manual) Monocytes % (Manual) Eosinophils % (Manual) Basophils % (Manual) Nucleated RBC % Seg Neutrophils # Seg Neutrophils # Man Lymphocytes # (Manual) Monocytes # (Manual) Eosinophils # (Manual) PT INR Fibrinogen dRVVT Confirm Interp Factor V Activity POC ABG pH POC ABG pCO2 POC ABG pO2 Sodium Potassium 5.1 H Chloride 95.9 L Carbon Dioxide BUN 52 H Creatinine 1.8 H Glucose 117 H POC Glucose 120 H Lactic Acid Calcium Phosphorus Magnesium Direct Bilirubin AST 103 H ALT 77 H Alkaline Phosphatase 285 H Lactate Dehydrogenase Troponin T C-Reactive Protein Total Protein 6.2 L Albumin 1.8 L Prealbumin 0.180 L Triglycerides Cholesterol LDL Cholesterol Direct HDL Cholesterol Urine pH Urine WBC (Auto) Urine Creatinine Urine Total Protein Fluid Total Protein Vancomycin Trough Rheumatoid Factor Complement C4 Miscellaneous Test Crossmatch 11/06/16 11/06/16 11/06/16 11:56 17:14 23:52 WBC RBC Hgb Hct MCV MCH MCHC RDW Plt Count Lymph % (Auto) [place] % (Auto) Lymph # [place] # Baso # Seg Neutrophils % Seg Neuts % (Manual) Lymphocytes % (Manual) Monocytes % (Manual) Eosinophils % (Manual) Basophils % (Manual) Nucleated RBC % Seg Neutrophils # Seg Neutrophils # Man Lymphocytes # (Manual) Monocytes # (Manual) Eosinophils # (Manual) PT INR Fibrinogen dRVVT Confirm Interp Factor V Activity POC ABG pH POC ABG pCO2 POC ABG pO2 Sodium Potassium Chloride Carbon Dioxide BUN Creatinine Glucose POC Glucose 141 H 125 H 130 H Lactic Acid Calcium Phosphorus Magnesium Direct Bilirubin AST ALT Alkaline Phosphatase Lactate Dehydrogenase Troponin T C-Reactive Protein Total Protein Albumin Prealbumin Triglycerides Cholesterol LDL Cholesterol Direct HDL Cholesterol Urine pH Urine WBC (Auto) Urine Creatinine Urine Total Protein Fluid Total Protein Vancomycin Trough Rheumatoid Factor Complement C4 Miscellaneous Test Crossmatch 11/07/16 11/07/16 11/07/16 06:30 06:30 09:37 WBC RBC 2.18 L Hgb 6.3 L Hct 19.7 L* MCV MCH MCHC RDW 16.8 H Plt Count Lymph % (Auto) [place] % (Auto) 10.0 H Lymph # [place] # 1.0 H Baso # Seg Neutrophils % Seg Neuts % (Manual) Lymphocytes % (Manual) Monocytes % (Manual) Eosinophils % (Manual) Basophils % (Manual) Nucleated RBC % Seg Neutrophils # Seg Neutrophils # Man Lymphocytes # (Manual) Monocytes # (Manual) Eosinophils # (Manual) PT INR Fibrinogen dRVVT Confirm Interp Factor V Activity POC ABG pH POC ABG pCO2 POC ABG pO2 Sodium 135 L Potassium Chloride 95.6 L Carbon Dioxide BUN 70 H Creatinine 2.0 H Glucose 126 H POC Glucose Lactic Acid Calcium Phosphorus Magnesium Direct Bilirubin AST ALT Alkaline Phosphatase Lactate Dehydrogenase Troponin T C-Reactive Protein Total Protein Albumin Prealbumin Triglycerides Cholesterol LDL Cholesterol Direct HDL Cholesterol Urine pH Urine WBC (Auto) Urine Creatinine Urine Total Protein Fluid Total Protein Vancomycin Trough Rheumatoid Factor Complement C4 Miscellaneous Test Crossmatch See Detail 11/07/16 11/07/16 11/07/16 12:52 18:51 21:26 WBC RBC Hgb Hct MCV MCH MCHC RDW Plt Count Lymph % (Auto) [place] % (Auto) Lymph # [place] # Baso # Seg Neutrophils % Seg Neuts % (Manual) Lymphocytes % (Manual) Monocytes % (Manual) Eosinophils % (Manual) Basophils % (Manual) Nucleated RBC % Seg Neutrophils # Seg Neutrophils # Man Lymphocytes # (Manual) Monocytes # (Manual) Eosinophils # (Manual) PT INR Fibrinogen dRVVT Confirm Interp Factor V Activity POC ABG pH 7.523 H POC ABG pCO2 34.6 L POC ABG pO2 53 L Sodium Potassium Chloride Carbon Dioxide BUN Creatinine Glucose POC Glucose 142 H 155 H Lactic Acid Calcium Phosphorus Magnesium Direct Bilirubin AST ALT Alkaline Phosphatase Lactate Dehydrogenase Troponin T C-Reactive Protein Total Protein Albumin Prealbumin Triglycerides Cholesterol LDL Cholesterol Direct HDL Cholesterol Urine pH Urine WBC (Auto) Urine Creatinine Urine Total Protein Fluid Total Protein Vancomycin Trough Rheumatoid Factor Complement C4 Miscellaneous Test Crossmatch 11/07/16 11/08/16 11/08/16 21:34 13:03 23:37 WBC RBC 2.63 L Hgb 7.7 L Hct 22.7 L MCV MCH MCHC RDW 17.0 H Plt Count Lymph % (Auto) [place] % (Auto) Lymph # [place] # Baso # Seg Neutrophils % Seg Neuts % (Manual) Lymphocytes % (Manual) Monocytes % (Manual) Eosinophils % (Manual) Basophils % (Manual) Nucleated RBC % Seg Neutrophils # Seg Neutrophils # Man Lymphocytes # (Manual) Monocytes # (Manual) Eosinophils # (Manual) PT INR Fibrinogen dRVVT Confirm Interp Factor V Activity POC ABG pH 7.478 H POC ABG pCO2 34.0 L POC ABG pO2 50 L Sodium Potassium Chloride Carbon Dioxide BUN Creatinine Glucose POC Glucose 113 H Lactic Acid Calcium Phosphorus Magnesium Direct Bilirubin AST ALT Alkaline Phosphatase Lactate Dehydrogenase Troponin T C-Reactive Protein Total Protein Albumin Prealbumin Triglycerides Cholesterol LDL Cholesterol Direct HDL Cholesterol Urine pH Urine WBC (Auto) Urine Creatinine Urine Total Protein Fluid Total Protein Vancomycin Trough Rheumatoid Factor Complement C4 Miscellaneous Test Crossmatch 11/09/16 11/09/16 11/09/16 04:35 10:15 18:21 WBC RBC 2.68 L Hgb 7.8 L Hct 23.3 L MCV MCH MCHC RDW 17.0 H Plt Count Lymph % (Auto) [place] % (Auto) 12.1 H Lymph # [place] # 1.1 H Baso # Seg Neutrophils % Seg Neuts % (Manual) Lymphocytes % (Manual) Monocytes % (Manual) Eosinophils % (Manual) Basophils % (Manual) Nucleated RBC % Seg Neutrophils # Seg Neutrophils # Man Lymphocytes # (Manual) Monocytes # (Manual) Eosinophils # (Manual) PT INR Fibrinogen dRVVT Confirm Interp Factor V Activity POC ABG pH POC ABG pCO2 POC ABG pO2 Sodium Potassium Chloride Carbon Dioxide BUN 51 H Creatinine 1.8 H Glucose POC Glucose 60 L Lactic Acid Calcium 8.3 L Phosphorus Magnesium Direct Bilirubin AST ALT Alkaline Phosphatase Lactate Dehydrogenase Troponin T C-Reactive Protein Total Protein Albumin Prealbumin Triglycerides Cholesterol LDL Cholesterol Direct HDL Cholesterol Urine pH Urine WBC (Auto) Urine Creatinine Urine Total Protein Fluid Total Protein Vancomycin Trough Rheumatoid Factor Complement C4 Miscellaneous Test Crossmatch 11/09/16 11/10/16 11/10/16 18:55 07:00 11:51 WBC RBC Hgb Hct MCV MCH MCHC RDW Plt Count Lymph % (Auto) [place] % (Auto) Lymph # [place] # Baso # Seg Neutrophils % Seg Neuts % (Manual) Lymphocytes % (Manual) Monocytes % (Manual) Eosinophils % (Manual) Basophils % (Manual) Nucleated RBC % Seg Neutrophils # Seg Neutrophils # Man Lymphocytes # (Manual) Monocytes # (Manual) Eosinophils # (Manual) PT INR Fibrinogen dRVVT Confirm Interp Factor V Activity POC ABG pH POC ABG pCO2 POC ABG pO2 Sodium Potassium 3.0 L D Chloride 97.4 L Carbon Dioxide BUN 28 H Creatinine 1.3 H Glucose POC Glucose 68 L 120 H Lactic Acid Calcium 7.8 L Phosphorus Magnesium Direct Bilirubin AST ALT Alkaline Phosphatase Lactate Dehydrogenase Troponin T C-Reactive Protein Total Protein Albumin Prealbumin Triglycerides Cholesterol LDL Cholesterol Direct HDL Cholesterol Urine pH Urine WBC (Auto) Urine Creatinine Urine Total Protein Fluid Total Protein Vancomycin Trough Rheumatoid Factor Complement C4 Miscellaneous Test Crossmatch 11/10/16 11/11/16 11/11/16 14:20 06:59 06:59 WBC RBC 2.81 L Hgb 8.1 L Hct 24.4 L MCV MCH MCHC RDW 16.4 H Plt Count Lymph % (Auto) [place] % (Auto) 10.8 H Lymph # [place] # 1.0 H Baso # Seg Neutrophils % Seg Neuts % (Manual) Lymphocytes % (Manual) Monocytes % (Manual) Eosinophils % (Manual) Basophils % (Manual) Nucleated RBC % Seg Neutrophils # Seg Neutrophils # Man Lymphocytes # (Manual) Monocytes # (Manual) Eosinophils # (Manual) PT INR Fibrinogen dRVVT Confirm Interp Factor V Activity POC ABG pH POC ABG pCO2 POC ABG pO2 Sodium Potassium Chloride Carbon Dioxide BUN Creatinine Glucose POC Glucose Lactic Acid Calcium Phosphorus Magnesium Direct Bilirubin AST ALT Alkaline Phosphatase Lactate Dehydrogenase 196 H Troponin T C-Reactive Protein Total Protein 6.1 L Albumin Prealbumin Triglycerides Cholesterol LDL Cholesterol Direct HDL Cholesterol Urine pH Urine WBC (Auto) Urine Creatinine Urine Total Protein Fluid Total Protein < 3.0 L Vancomycin Trough Rheumatoid Factor Complement C4 Miscellaneous Test Crossmatch 11/11/16 11/11/1611/12/17 06:59 09:50 04:00 WBC RBC Hgb Hct MCV MCH MCHC RDW Plt Count Lymph % (Auto) [place] % (Auto) Lymph # [place] # Baso # Seg Neutrophils % Seg Neuts % (Manual) Lymphocytes % (Manual) Monocytes % (Manual) Eosinophils % (Manual) Basophils % (Manual) Nucleated RBC % Seg Neutrophils # Seg Neutrophils # Man Lymphocytes # (Manual) Monocytes # (Manual) Eosinophils # (Manual) PT INR 1.18 H Fibrinogen dRVVT Confirm Interp Factor V Activity POC ABG pH POC ABG pCO2 POC ABG pO2 Sodium 136 L 133 L Potassium Chloride 96.1 L 94.8 L Carbon Dioxide 21 L BUN 37 H 42 H Creatinine 1.8 H 2.0 H Glucose POC Glucose Lactic Acid Calcium Phosphorus Magnesium Direct Bilirubin AST ALT Alkaline Phosphatase Lactate Dehydrogenase Troponin T C-Reactive Protein Total Protein Albumin Prealbumin Triglycerides Cholesterol LDL Cholesterol Direct HDL Cholesterol Urine pH Urine WBC (Auto) Urine Creatinine Urine Total Protein Fluid Total Protein Vancomycin Trough Rheumatoid Factor Complement C4 Miscellaneous Test Crossmatch 11/12/16 11/12/16 11/13/16 04:00 23:55 05:53 WBC RBC Hgb 8.9 L Hct 27.2 L MCV MCH MCHC RDW Plt Count Lymph % (Auto) [place] % (Auto) Lymph # [place] # Baso # Seg Neutrophils % Seg Neuts % (Manual) Lymphocytes % (Manual) Monocytes % (Manual) Eosinophils % (Manual) Basophils % (Manual) Nucleated RBC % Seg Neutrophils # Seg Neutrophils # Man Lymphocytes # (Manual) Monocytes # (Manual) Eosinophils # (Manual) PT INR Fibrinogen dRVVT Confirm Interp Factor V Activity POC ABG pH POC ABG pCO2 POC ABG pO2 Sodium Potassium Chloride Carbon Dioxide BUN Creatinine Glucose POC Glucose 132 H 120 H Lactic Acid Calcium Phosphorus Magnesium Direct Bilirubin AST ALT Alkaline Phosphatase Lactate Dehydrogenase Troponin T C-Reactive Protein Total Protein Albumin Prealbumin Triglycerides Cholesterol LDL Cholesterol Direct HDL Cholesterol Urine pH Urine WBC (Auto) Urine Creatinine Urine Total Protein Fluid Total Protein Vancomycin Trough Rheumatoid Factor Complement C4 Miscellaneous Test Crossmatch 11/13/16 11/13/16 11/13/16 11:43 17:09 23:41 WBC RBC Hgb Hct MCV MCH MCHC RDW Plt Count Lymph % (Auto) [place] % (Auto) Lymph # [place] # Baso # Seg Neutrophils % Seg Neuts % (Manual) Lymphocytes % (Manual) Monocytes % (Manual) Eosinophils % (Manual) Basophils % (Manual) Nucleated RBC % Seg Neutrophils # Seg Neutrophils # Man Lymphocytes # (Manual) Monocytes # (Manual) Eosinophils # (Manual) PT INR Fibrinogen dRVVT Confirm Interp Factor V Activity POC ABG pH POC ABG pCO2 POC ABG pO2 Sodium Potassium Chloride Carbon Dioxide BUN Creatinine Glucose POC Glucose 114 H 113 H 108 H Lactic Acid Calcium Phosphorus Magnesium Direct Bilirubin AST ALT Alkaline Phosphatase Lactate Dehydrogenase Troponin T C-Reactive Protein Total Protein Albumin Prealbumin Triglycerides Cholesterol LDL Cholesterol Direct HDL Cholesterol Urine pH Urine WBC (Auto) Urine Creatinine Urine Total Protein Fluid Total Protein Vancomycin Trough Rheumatoid Factor Complement C4 Miscellaneous Test Crossmatch 11/13/16 11/15/16 11/15/16 Unknown 00:37 03:30 WBC 11.2 H RBC 2.72 L Hgb 7.6 L Hct 23.4 L MCV MCH MCHC RDW 16.5 H Plt Count Lymph % (Auto) [place] % (Auto) Lymph # [place] # Baso # Seg Neutrophils % Seg Neuts % (Manual) Lymphocytes % (Manual) Monocytes % (Manual) Eosinophils % (Manual) Basophils % (Manual) Nucleated RBC % Seg Neutrophils # Seg Neutrophils # Man Lymphocytes # (Manual) Monocytes # (Manual) Eosinophils # (Manual) PT INR Fibrinogen dRVVT Confirm Interp Factor V Activity POC ABG pH POC ABG pCO2 POC ABG pO2 Sodium 135 L Potassium Chloride 95.2 L Carbon Dioxide BUN 52 H Creatinine 2.2 H Glucose POC Glucose 108 H Lactic Acid Calcium Phosphorus Magnesium Direct Bilirubin AST ALT Alkaline Phosphatase Lactate Dehydrogenase Troponin T C-Reactive Protein Total Protein Albumin Prealbumin Triglycerides Cholesterol LDL Cholesterol Direct HDL Cholesterol Urine pH Urine WBC (Auto) Urine Creatinine Urine Total Protein Fluid Total Protein Vancomycin Trough Rheumatoid Factor Complement C4 Miscellaneous Test Crossmatch 11/15/16 11/15/16 11/15/16 03:30 05:04 11:50 WBC RBC Hgb Hct MCV MCH MCHC RDW Plt Count Lymph % (Auto) [place] % (Auto) Lymph # [place] # Baso # Seg Neutrophils % Seg Neuts % (Manual) Lymphocytes % (Manual) Monocytes % (Manual) Eosinophils % (Manual) Basophils % (Manual) Nucleated RBC % Seg Neutrophils # Seg Neutrophils # Man Lymphocytes # (Manual) Monocytes # (Manual) Eosinophils # (Manual) PT INR Fibrinogen dRVVT Confirm Interp Factor V Activity POC ABG pH POC ABG pCO2 POC ABG pO2 Sodium Potassium 3.4 L Chloride Carbon Dioxide BUN 25 H Creatinine 1.5 H Glucose 103 H POC Glucose 121 H 144 H Lactic Acid Calcium Phosphorus Magnesium Direct Bilirubin AST ALT Alkaline Phosphatase Lactate Dehydrogenase Troponin T C-Reactive Protein Total Protein Albumin Prealbumin Triglycerides Cholesterol LDL Cholesterol Direct HDL Cholesterol Urine pH Urine WBC (Auto) Urine Creatinine Urine Total Protein Fluid Total Protein Vancomycin Trough Rheumatoid Factor Complement C4 Miscellaneous Test Crossmatch 11/15/16 11/15/16 11/16/16 21:28 23:20 11:44 WBC RBC Hgb Hct MCV MCH MCHC RDW Plt Count Lymph % (Auto) [place] % (Auto) Lymph # [place] # Baso # Seg Neutrophils % Seg Neuts % (Manual) Lymphocytes % (Manual) Monocytes % (Manual) Eosinophils % (Manual) Basophils % (Manual) Nucleated RBC % Seg Neutrophils # Seg Neutrophils # Man Lymphocytes # (Manual) Monocytes # (Manual) Eosinophils # (Manual) PT INR Fibrinogen dRVVT Confirm Interp Factor V Activity POC ABG pH 7.462 H POC ABG pCO2 POC ABG pO2 71 L Sodium Potassium Chloride Carbon Dioxide BUN Creatinine Glucose POC Glucose 116 H 133 H Lactic Acid Calcium Phosphorus Magnesium Direct Bilirubin AST ALT Alkaline Phosphatase Lactate Dehydrogenase Troponin T C-Reactive Protein Total Protein Albumin Prealbumin Triglycerides Cholesterol LDL Cholesterol Direct HDL Cholesterol Urine pH Urine WBC (Auto) Urine Creatinine Urine Total Protein Fluid Total Protein Vancomycin Trough Rheumatoid Factor Complement C4 Miscellaneous Test Crossmatch 11/16/16 11/16/16 11/16/16 12:20 17:05 23:35 WBC 11.7 H RBC 2.73 L Hgb 7.6 L Hct 23.7 L MCV MCH MCHC RDW 16.6 H Plt Count Lymph % (Auto) [place] % (Auto) Lymph # [place] # Baso # Seg Neutrophils % Seg Neuts % (Manual) Lymphocytes % (Manual) Monocytes % (Manual) Eosinophils % (Manual) Basophils % (Manual) Nucleated RBC % Seg Neutrophils # Seg Neutrophils # Man Lymphocytes # (Manual) Monocytes # (Manual) Eosinophils # (Manual) PT INR Fibrinogen dRVVT Confirm Interp Factor V Activity POC ABG pH POC ABG pCO2 POC ABG pO2 Sodium Potassium Chloride Carbon Dioxide BUN Creatinine Glucose POC Glucose 154 H 125 H Lactic Acid Calcium Phosphorus Magnesium Direct Bilirubin AST ALT Alkaline Phosphatase Lactate Dehydrogenase Troponin T C-Reactive Protein Total Protein Albumin Prealbumin Triglycerides Cholesterol LDL Cholesterol Direct HDL Cholesterol Urine pH Urine WBC (Auto) Urine Creatinine Urine Total Protein Fluid Total Protein Vancomycin Trough Rheumatoid Factor Complement C4 Miscellaneous Test Crossmatch 11/17/16 11/17/16 11/17/16 03:20 03:20 03:20 WBC RBC 2.55 L Hgb 7.3 L Hct 21.9 L MCV MCH MCHC RDW 16.6 H Plt Count Lymph % (Auto) [place] % (Auto) 11.5 H Lymph # [place] # 1.1 H Baso # Seg Neutrophils % Seg Neuts % (Manual) Lymphocytes % (Manual) Monocytes % (Manual) Eosinophils % (Manual) Basophils % (Manual) Nucleated RBC % Seg Neutrophils # Seg Neutrophils # Man Lymphocytes # (Manual) Monocytes # (Manual) Eosinophils # (Manual) PT 16.8 H INR 1.37 H Fibrinogen dRVVT Confirm Interp Factor V Activity POC ABG pH POC ABG pCO2 POC ABG pO2 Sodium Potassium 3.5 L Chloride Carbon Dioxide BUN 21 H Creatinine Glucose POC Glucose Lactic Acid Calcium 7.9 L Phosphorus Magnesium Direct Bilirubin AST ALT Alkaline Phosphatase Lactate Dehydrogenase Troponin T C-Reactive Protein Total Protein Albumin Prealbumin Triglycerides Cholesterol LDL Cholesterol Direct HDL Cholesterol Urine pH Urine WBC (Auto) Urine Creatinine Urine Total Protein Fluid Total Protein Vancomycin Trough Rheumatoid Factor Complement C4 Miscellaneous Test Crossmatch 11/17/16 11/17/16 11/17/16 06:34 11:21 21:22 WBC RBC Hgb Hct MCV MCH MCHC RDW Plt Count Lymph % (Auto) [place] % (Auto) Lymph # [place] # Baso # Seg Neutrophils % Seg Neuts % (Manual) Lymphocytes % (Manual) Monocytes % (Manual) Eosinophils % (Manual) Basophils % (Manual) Nucleated RBC % Seg Neutrophils # Seg Neutrophils # Man Lymphocytes # (Manual) Monocytes # (Manual) Eosinophils # (Manual) PT INR Fibrinogen dRVVT Confirm Interp Factor V Activity POC ABG pH 7.467 H POC ABG pCO2 POC ABG pO2 73 L Sodium Potassium Chloride Carbon Dioxide BUN Creatinine Glucose POC Glucose 121 H 119 H Lactic Acid Calcium Phosphorus Magnesium Direct Bilirubin AST ALT Alkaline Phosphatase Lactate Dehydrogenase Troponin T C-Reactive Protein Total Protein Albumin Prealbumin Triglycerides Cholesterol LDL Cholesterol Direct HDL Cholesterol Urine pH Urine WBC (Auto) Urine Creatinine Urine Total Protein Fluid Total Protein Vancomycin Trough Rheumatoid Factor Complement C4 Miscellaneous Test Crossmatch 0911/18/16 11/19/16 12:16 17:19 00:00 WBC RBC Hgb Hct MCV MCH MCHC RDW Plt Count Lymph % (Auto) [place] % (Auto) Lymph # [place] # Baso # Seg Neutrophils % Seg Neuts % (Manual) Lymphocytes % (Manual) Monocytes % (Manual) Eosinophils % (Manual) Basophils % (Manual) Nucleated RBC % Seg Neutrophils # Seg Neutrophils # Man Lymphocytes # (Manual) Monocytes # (Manual) Eosinophils # (Manual) PT INR Fibrinogen dRVVT Confirm Interp Factor V Activity POC ABG pH POC ABG pCO2 POC ABG pO2 Sodium Potassium Chloride Carbon Dioxide BUN Creatinine Glucose POC Glucose 124 H 162 H 139 H Lactic Acid Calcium Phosphorus Magnesium Direct Bilirubin AST ALT Alkaline Phosphatase Lactate Dehydrogenase Troponin T C-Reactive Protein Total Protein Albumin Prealbumin Triglycerides Cholesterol LDL Cholesterol Direct HDL Cholesterol Urine pH Urine WBC (Auto) Urine Creatinine Urine Total Protein Fluid Total Protein Vancomycin Trough Rheumatoid Factor Complement C4 Miscellaneous Test Crossmatch 11/19/16 11/19/16 11/20/16 05:00 12:43 00:40 WBC RBC Hgb Hct MCV MCH MCHC RDW Plt Count Lymph % (Auto) [place] % (Auto) Lymph # [place] # Baso # Seg Neutrophils % Seg Neuts % (Manual) Lymphocytes % (Manual) Monocytes % (Manual) Eosinophils % (Manual) Basophils % (Manual) Nucleated RBC % Seg Neutrophils # Seg Neutrophils # Man Lymphocytes # (Manual) Monocytes # (Manual) Eosinophils # (Manual) PT INR Fibrinogen dRVVT Confirm Interp Factor V Activity POC ABG pH POC ABG pCO2 POC ABG pO2 Sodium Potassium Chloride Carbon Dioxide BUN Creatinine Glucose POC Glucose 110 H 125 H 136 H Lactic Acid Calcium Phosphorus Magnesium Direct Bilirubin AST ALT Alkaline Phosphatase Lactate Dehydrogenase Troponin T C-Reactive Protein Total Protein Albumin Prealbumin Triglycerides Cholesterol LDL Cholesterol Direct HDL Cholesterol Urine pH Urine WBC (Auto) Urine Creatinine Urine Total Protein Fluid Total Protein Vancomycin Trough Rheumatoid Factor Complement C4 Miscellaneous Test Crossmatch 11/20/16 11/20/16 11/20/16 05:00 05:00 05:51 WBC 13.1 H RBC 2.74 L Hgb 7.7 L Hct 23.6 L MCV MCH MCHC RDW 16.9 H Plt Count Lymph % (Auto) [place] % (Auto) 10.8 H Lymph # [place] # 1.4 H Baso # Seg Neutrophils % Seg Neuts % (Manual) Lymphocytes % (Manual) Monocytes % (Manual) Eosinophils % (Manual) Basophils % (Manual) Nucleated RBC % Seg Neutrophils # 7.9 H Seg Neutrophils # Man Lymphocytes # (Manual) Monocytes # (Manual) Eosinophils # (Manual) PT INR Fibrinogen dRVVT Confirm Interp Factor V Activity POC ABG pH POC ABG pCO2 POC ABG pO2 Sodium Potassium Chloride Carbon Dioxide BUN 31 H Creatinine 1.8 H Glucose 129 H POC Glucose 133 H Lactic Acid Calcium Phosphorus Magnesium Direct Bilirubin AST ALT Alkaline Phosphatase Lactate Dehydrogenase Troponin T C-Reactive Protein Total Protein Albumin Prealbumin Triglycerides Cholesterol LDL Cholesterol Direct HDL Cholesterol Urine pH Urine WBC (Auto) Urine Creatinine Urine Total Protein Fluid Total Protein Vancomycin Trough Rheumatoid Factor Complement C4 Miscellaneous Test Crossmatch 11/20/16 11/20/16 11/21/16 12:40 18:10 01:20 WBC RBC Hgb Hct MCV MCH MCHC RDW Plt Count Lymph % (Auto) [place] % (Auto) Lymph # [place] # Baso # Seg Neutrophils % Seg Neuts % (Manual) Lymphocytes % (Manual) Monocytes % (Manual) Eosinophils % (Manual) Basophils % (Manual) Nucleated RBC % Seg Neutrophils # Seg Neutrophils # Man Lymphocytes # (Manual) Monocytes # (Manual) Eosinophils # (Manual) PT INR Fibrinogen dRVVT Confirm Interp Factor V Activity POC ABG pH POC ABG pCO2 POC ABG pO2 Sodium Potassium Chloride Carbon Dioxide BUN Creatinine Glucose POC Glucose 134 H 138 H 136 H Lactic Acid Calcium Phosphorus Magnesium Direct Bilirubin AST ALT Alkaline Phosphatase Lactate Dehydrogenase Troponin T C-Reactive Protein Total Protein Albumin Prealbumin Triglycerides Cholesterol LDL Cholesterol Direct HDL Cholesterol Urine pH Urine WBC (Auto) Urine Creatinine Urine Total Protein Fluid Total Protein Vancomycin Trough Rheumatoid Factor Complement C4 Miscellaneous Test Crossmatch 11/21/16 11/21/16 11/21/16 07:04 07:45 07:45 WBC 22.0 H RBC 2.91 L Hgb 8.2 L Hct 25.4 L MCV MCH MCHC RDW 17.1 H Plt Count Lymph % (Auto) [place] % (Auto) Lymph # [place] # Baso # Seg Neutrophils % Seg Neuts % (Manual) Lymphocytes % (Manual) 8.0 L Monocytes % (Manual) Eosinophils % (Manual) Basophils % (Manual) Nucleated RBC % Seg Neutrophils # Seg Neutrophils # Man 14.7 H Lymphocytes # (Manual) Monocytes # (Manual) 1.1 H Eosinophils # (Manual) PT INR Fibrinogen dRVVT Confirm Interp Factor V Activity POC ABG pH POC ABG pCO2 POC ABG pO2 Sodium Potassium Chloride Carbon Dioxide BUN 42 H Creatinine 2.0 H Glucose POC Glucose 108 H Lactic Acid Calcium Phosphorus Magnesium Direct Bilirubin AST ALT Alkaline Phosphatase Lactate Dehydrogenase Troponin T C-Reactive Protein Total Protein Albumin Prealbumin Triglycerides Cholesterol LDL Cholesterol Direct HDL Cholesterol Urine pH Urine WBC (Auto) Urine Creatinine Urine Total Protein Fluid Total Protein Vancomycin Trough Rheumatoid Factor Complement C4 Miscellaneous Test Crossmatch 11/21/16 11/21/16 11/21/16 08:38 10:09 11:20 WBC RBC Hgb Hct MCV MCH MCHC RDW Plt Count Lymph % (Auto) [place] % (Auto) Lymph # [place] # Baso # Seg Neutrophils % Seg Neuts % (Manual) Lymphocytes % (Manual) Monocytes % (Manual) Eosinophils % (Manual) Basophils % (Manual) Nucleated RBC % Seg Neutrophils # Seg Neutrophils # Man Lymphocytes # (Manual) Monocytes # (Manual) Eosinophils # (Manual) PT INR Fibrinogen dRVVT Confirm Interp Factor V Activity POC ABG pH 7.346 L POC ABG pCO2 34.4 L POC ABG pO2 314 H Sodium Potassium Chloride Carbon Dioxide BUN Creatinine Glucose POC Glucose 195 H 153 H Lactic Acid Calcium Phosphorus Magnesium Direct Bilirubin AST ALT Alkaline Phosphatase Lactate Dehydrogenase Troponin T C-Reactive Protein Total Protein Albumin Prealbumin Triglycerides Cholesterol LDL Cholesterol Direct HDL Cholesterol Urine pH Urine WBC (Auto) Urine Creatinine Urine Total Protein Fluid Total Protein Vancomycin Trough Rheumatoid Factor Complement C4 Miscellaneous Test Crossmatch 11/21/16 11/22/16 23:37 04:48 WBC RBC Hgb Hct MCV MCH MCHC RDW Plt Count Lymph % (Auto) [place] % (Auto) Lymph # [place] # Baso # Seg Neutrophils % Seg Neuts % (Manual) Lymphocytes % (Manual) Monocytes % (Manual) Eosinophils % (Manual) Basophils % (Manual) Nucleated RBC % Seg Neutrophils # Seg Neutrophils # Man Lymphocytes # (Manual) Monocytes # (Manual) Eosinophils # (Manual) PT INR Fibrinogen dRVVT Confirm Interp Factor V Activity POC ABG pH POC ABG pCO2 24.6 L POC ABG pO2 189 H Sodium Potassium Chloride Carbon Dioxide BUN Creatinine Glucose POC Glucose 65 L Lactic Acid Calcium Phosphorus Magnesium Direct Bilirubin AST ALT Alkaline Phosphatase Lactate Dehydrogenase Troponin T C-Reactive Protein Total Protein Albumin Prealbumin Triglycerides Cholesterol LDL Cholesterol Direct HDL Cholesterol Urine pH Urine WBC (Auto) Urine Creatinine Urine Total Protein Fluid Total Protein Vancomycin Trough Rheumatoid Factor Complement C4 Miscellaneous Test Crossmatch Allied health notes reviewed: RT
--- NOTE | 2016-11-22 09:05 | Progress Note ---
Assessment and Plan Assessment and plan: Patient is 46-year-old woman with a history of hypertension, diabetes, asthma, hyperlipidemia, chronic kidney disease and anxiety , who was brought in by family because, she couldn't get her words out, her face was also twisted, she was admitted for acute CVA and accelerated hypertension, she had a hx of poor adherence with her medications, and uncontrolled htn. Patient's SBP on admission was noted be greater than 260. TPA was started but this was discontinued after 5 minutes because her blood pressure became uncontrolled. The TPA was not initiated again because the patient was outside the TPA window. Status post cardiac arrest yesterday, 11/21 Received CPR and attained ROSC, vitals stable, glucose stable, chest x-ray improving, labs stable -Most likely related to aspiration as cardiac arrest happened shortly after the patient had emesis Fever continues to have fevers. ID Physician was following but has signed off. Patient was last on Cefepime and Vancomycin, now discontinued by ID Physician , to monitor off Antibiotics. Catheter site was growing multiple organisms, and she had completed Antibiotics sp R thoracentesis on 11/14, 240cc of serous fluid removed, cx of fluid was negative Stool negative for C. difficile -Severe Sepsis with septic shock, recurrent. Patient with multiple episodes of sepsis. Initial episode due to presumed aspiration pneumonia and septic episode on 09/23 from candidemia then a third episode from peritonitis from gastric perforation from dislodged PEG , there was an abscess in the abdomen present at that time that was draining pus. +/-UTI. The latest episode was related to surgical site infection. Antibiotics discontinued Surgical wound infection/gram-negative sepsis/candidemia/peritonitis PEG has been removed She will need to be on tube feeds through NG tube for a month, and then either a gastrostomy or jejunostomy tube replaced after her GI wounds have healed and infection is cleared -continue wound care to ostomy sites JUANITA, now ESRD Likely due to vasomotor nephropathy and ATN given sepsis Nephrology input appreciated, continue hemodialysis as per Nephrolog Acute CVA with infarct. sp TPA Continue neuro checks. Neurology input appreciated, CT shows continued evolution of left MCA infarct with slight mass effect and edema, and there is no hemorrhage - PRINCE showed hyperdynamic with ef of 75%, neither clot nor septal defect seen - MRA Brain shows near complete occlusion of M2 and M3 of the left MCA - Repeat CT scan done on 09/11, shows stable findings - carotid doppler negative - Echo shows preserved systolic function but does show some left ventricular diastolic dysfunction - continue asa and statin for secondary ppx Persistent vegetative state This patient's needs placement at SNF -She was denied for LTACH Acute hypoxic respiratory failure requiring MV >96hrs Status post tracheostomy, was on T piece now put back on Vent yesterday after cardiac arrest Nosocomial acquired aspiration pneumonia/sepsis/UTI She had completed a course of antibiotics. Asthma/COPD exacerbation Now has trach Acute Toxic Metabolic encephalopathy. Multitifactorial, mostly secondary to evolution of CVA Hypertensive Emergency continue BP meds Bilateral pleural effusion, s/p right thoracentesis 11/14 fluid analysis cw transudate Paroxysmal atrial fibrillation with rapid ventricular rate and hyper-coaguable state , failed cardioversion Continue current medications, Not a candidate for anticoagulation secondary to anemia, thrombocytopenia, and massive CVA Hypokalemia/Hypomagnesemia/hypophosphatemia. Replete electrolytes as needed. Diabetes type 2. Continue sliding-scale regular insulin and Accu-Cheks. Hyperlipidemia. Continue statin Nutrition continue tube feeds Anemia requiring multiple transfusions/acute blood loss Has received total 13 units of PRBC this admission. Will continue to transfuse to keep Hemoglobin above 7 Hemoglobin 8.9, most recent Her POA is her Brother, Jam [phone] Hospitalist discussed code status and very poor prognosis with family, but they still want full code status Disposition. Very poor prognosis. Plan is for SNF placement. She was denied by LTAC The high probability of a clinically significant, sudden or life threatening deterioration of the [4] system(s) required my full and direct attention, intervention and personal management. The aggregate critical care time was [36] minutes. This time is in addition to time spent performing reported procedures but includes the following: [x] Data Review and interpretation [x] Patient assessment and monitoring of vital signs [x] Documentation [x] Medication orders and management History Interval history: Patient has had a prolonged stay. She had cardiac arrest yesterday, resuscitated and then transferred to ICU Hospitalist Physical - Physical exam Narrative exam: Gen appearance: Trach, not in acute distress, on Ventilator HEENT: Atraumatic Neck: Tracheostomy Lungs: Coarse breath sounds bilaterally, no crackles or wheezes Heart :S1 and S2 irregular, rapid,no murmurs, rubs or gallop Abdomen: Soft, non tender, nod distended, ostomy bags, bowel sounds present Extremities : bilateral edema, upper and lower ext Neuro: Minimal responsive, opens eyes, Does not follow commands - Constitutional Vitals: Temp Pulse Resp BP Pulse Ox 99.5 F 122 H 23 124/68 100 11/22/16 07:57 11/22/16 06:50 11/22/16 06:45 11/22/16 06:50 11/22/16 06:45 General appearance: Present: no acute distress Results - Labs CBC & Chem 7: 11/22/16 05:00 11/22/16 05:00 Labs: Laboratory Last Values WBC 22.0 K/mm3 (4.5-11.0) H 11/21/16 07:45 RBC 2.91 M/mm3 (3.65-5.03) L 11/21/16 07:45 Hgb 8.2 gm/dl (10.1-14.3) L 11/21/16 07:45 Hct 25.4 % (30.3-42.9) L 11/21/16 07:45 MCV 87 fl (79-97) 11/21/16 07:45 MCH 28 pg (28-32) 11/21/16 07:45 MCHC 32 % (30-34) 11/21/16 07:45 RDW 17.1 % (13.2-15.2) H 11/21/16 07:45 Plt Count 362 K/mm3 (140-440) 11/21/16 07:45 Lymph % (Auto) 27.4 % (13.4-35.0) 11/20/16 05:00 [place] % (Auto) 10.8 % (0.0-7.3) H 11/20/16 05:00 Eos % (Auto) 1.2 % (0.0-4.3) 11/20/16 05:00 Baso % (Auto) 0.5 % (0.0-1.8) 11/20/16 05:00 Lymph # 3.6 K/mm3 (1.2-5.4) 11/20/16 05:00 [place] # 1.4 K/mm3 (0.0-0.8) H 11/20/16 05:00 Eos # 0.2 K/mm3 (0.0-0.4) 11/20/16 05:00 Baso # 0.1 K/mm3 (0.0-0.1) 11/20/16 05:00 Add Manual Diff Complete 11/21/16 07:45 Total Counted 100 11/21/16 07:45 Seg Neutrophils % 60.1 % (40.0-70.0) 11/20/16 05:00 Seg Neuts % (Manual) 67.0 % (40.0-70.0) 11/21/16 07:45 Band Neutrophils % 20.0 % 11/21/16 07:45 Lymphocytes % (Manual) 8.0 % (13.4-35.0) L 11/21/16 07:45 Reactive Lymphs % (Man) 0 % 11/21/16 07:45 Monocytes % (Manual) 5.0 % (0.0-7.3) 11/21/16 07:45 Eosinophils % (Manual) 0 % (0.0-4.3) 11/21/16 07:45 Basophils % (Manual) 0 % (0.0-1.8) 11/21/16 07:45 Metamyelocytes % 0 % 11/21/16 07:45 Myelocytes % 0 % 11/21/16 07:45 Promyelocytes % 0 % 11/21/16 07:45 Blast Cells % 0 % 11/21/16 07:45 Nucleated RBC % Not Reportable 11/21/16 07:45 Seg Neutrophils # 7.9 K/mm3 (1.8-7.7) H 11/20/16 05:00 Seg Neutrophils # Man 14.7 K/mm3 (1.8-7.7) H 11/21/16 07:45 Band Neutrophils # 4.4 K/mm3 11/21/16 07:45 Lymphocytes # (Manual) 1.8 K/mm3 (1.2-5.4) 11/21/16 07:45 Abs React Lymphs (Man) 0.0 K/mm3 11/21/16 07:45 Monocytes # (Manual) 1.1 K/mm3 (0.0-0.8) H 11/21/16 07:45 Eosinophils # (Manual) 0.0 K/mm3 (0.0-0.4) 11/21/16 07:45 Basophils # (Manual) 0.0 K/mm3 (0.0-0.1) 11/21/16 07:45 Metamyelocytes # 0.0 K/mm3 11/21/16 07:45 Myelocytes # 0.0 K/mm3 11/21/16 07:45 Promyelocytes # 0.0 K/mm3 11/21/16 07:45 Blast Cells # 0.0 K/mm3 11/21/16 07:45 Pathologist Review 09/13/16 04:00 WBC Morphology Not Reportable 11/21/16 07:45 Hypersegmented Neuts Not Reportable 11/21/16 07:45 Hyposegmented Neuts Not Reportable 11/21/16 07:45 Hypogranular Neuts Not Reportable 11/21/16 07:45 Smudge Cells Not Reportable 11/21/16 07:45 Toxic Granulation Not Reportable 11/21/16 07:45 Toxic Vacuolation Not Reportable 11/21/16 07:45 Dohle Bodies Not Reportable 11/21/16 07:45 Pelger-Huet Anomaly Not Reportable 11/21/16 07:45 Jasmina Rods Not Reportable 11/21/16 07:45 Platelet Estimate Not Reportable 11/21/16 07:45 Clumped Platelets Not Reportable 11/21/16 07:45 Plt Clumps, EDTA Not Reportable 11/21/16 07:45 Large Platelets Not Reportable 11/21/16 07:45 Giant Platelets Not Reportable 11/21/16 07:45 Platelet Satelliting Not Reportable 11/21/16 07:45 Plt Morphology Comment Not Reportable 11/21/16 07:45 RBC Morphology Not Reportable 11/21/16 07:45 Dimorphic RBCs Not Reportable 11/21/16 07:45 Polychromasia Few 11/21/16 07:45 Hypochromasia Not Reportable 11/21/16 07:45 Poikilocytosis Not Reportable 11/21/16 07:45 Anisocytosis Not Reportable 11/21/16 07:45 Microcytosis Not Reportable 11/21/16 07:45 Macrocytosis Not Reportable 11/21/16 07:45 Spherocytes Not Reportable 11/21/16 07:45 Pappenheimer Bodies Not Reportable 11/21/16 07:45 Sickle Cells Not Reportable 11/21/16 07:45 Target Cells Not Reportable 11/21/16 07:45 Tear Drop Cells Not Reportable 11/21/16 07:45 Ovalocytes Not Reportable 11/21/16 07:45 Stomatocytes Few 10/06/16 03:50 Helmet Cells Not Reportable 11/21/16 07:45 [place] Bodies Not Reportable 11/21/16 07:45 [place] Rings Not Reportable 11/21/16 07:45 Chuck Cells Not Reportable 11/21/16 07:45 Bite Cells Not Reportable 11/21/16 07:45 Crenated Cell Not Reportable 11/21/16 07:45 Elliptocytes Not Reportable 11/21/16 07:45 Acanthocytes (Spur) Not Reportable 11/21/16 07:45 Rouleaux Not Reportable 11/21/16 07:45 Hemoglobin C Crystals Not Reportable 11/21/16 07:45 Schistocytes Not Reportable 11/21/16 07:45 Malaria parasites Not Reportable 11/21/16 07:45 ESR > 140.0 mm/Hr (0-20) 09/08/16 11:48 Jun Bodies Not Reportable 11/21/16 07:45 Hem Pathologist Commnt No 11/21/16 07:45 PT 16.8 Sec. (12.2-14.9) H 11/17/16 03:20 INR 1.37 (0.87-1.13) H 11/17/16 03:20 APTT 33.0 Sec. (24.2-36.6) 10/09/16 03:45 Thrombin Time 16.8 Sec. (15.1-19.6) 09/03/16 00:10 Fibrinogen 750 mg/dl (211-480) H 09/08/16 11:48 Lupus Anticoagulant see below 09/12/16 09:59 LA PTT Baseline See scanned report 09/12/16 09:59 dRVVT Confirm Interp Positive (Negative) H 09/12/16 09:59 dRVVT Screen 50:50 See scanned report 09/12/16 09:59 dRVVT Mix Interpret See scanned report 09/12/16 09:59 Protein C Antigen 122 % (70-140) 09/08/16 15:35 Free Protein S 97 % normal (50-147) 09/08/16 15:35 Total Protein S 109 % (70-140) 09/08/16 15:35 Antithrombin III Ag 100 % (80-120) 09/08/16 15:35 Heparin Anti-Xa, Unfract Negative (Negative) 09/29/16 13:35 Factor V Activity 182 % (65-150) H 09/08/16 15:35 POC ABG pH 7.399 (7.35-7.45) 11/22/16 04:48 POC ABG pCO2 24.6 (35-45) L 11/22/16 04:48 POC ABG pO2 189 (80-105) H 11/22/16 04:48 POC ABG HCO3 15.2 11/22/16 04:48 POC ABG Total CO2 16 11/22/16 04:48 POC ABG O2 Sat 100 11/22/16 04:48 POC ABG Base Excess -10 11/22/16 04:48 FiO2 60 % 11/22/16 04:48 Sodium 138 mmol/L (137-145) 11/21/16 07:45 Potassium 4.4 mmol/L (3.6-5.0) 11/21/16 07:45 Chloride 100.2 mmol/L (98-107) 11/21/16 07:45 Carbon Dioxide 25 mmol/L (22-30) 11/21/16 07:45 Anion Gap 17 mmol/L 11/21/16 07:45 BUN 42 mg/dL (7-17) H 11/21/16 07:45 Creatinine 2.0 mg/dL (0.7-1.2) H 11/21/16 07:45 Estimated GFR 33 ml/min 11/21/16 07:45 BUN/Creatinine Ratio 21.00 % 11/21/16 07:45 Glucose 99 mg/dL (65-100) 11/21/16 07:45 POC Glucose 82 (70-105) 11/22/16 05:35 Osmolality 351 Mosm/kg 09/16/16 11:47 Lactic Acid 4.50 mmol/L (0.7-2.0) H* 09/28/16 07:25 Calcium 8.9 mg/dL (8.4-10.2) 11/21/16 07:45 Phosphorus 4.40 mg/dL (2.5-4.5) 11/07/16 06:30 Magnesium 2.20 mg/dL (1.7-2.3) 11/07/16 06:30 Total Bilirubin 0.20 mg/dL (0.1-1.2) 11/06/16 06:25 Direct Bilirubin 0.3 mg/dL (0-0.2) H 10/10/16 05:00 Indirect Bilirubin 0.1 mg/dL 10/10/16 05:00 AST 103 units/L (5-40) H 11/06/16 06:25 ALT 77 units/L (7-56) H 11/06/16 06:25 Alkaline Phosphatase 285 units/L (35-129) H 11/06/16 06:25 Ammonia 27.0 umol/L (25-60) 09/07/16 08:37 Lactate Dehydrogenase 196 units/L (91-180) H 11/11/16 06:59 Total Creatine Kinase 121 units/L (30-135) 09/29/16 20:12 CK-MB (CK-2) < 1.0 ng/mL (0.0-4.0) 09/29/16 20:12 CK-MB (CK-2) Rel Index 0.8 (0-4) 09/29/16 20:12 Troponin T 0.204 ng/mL (0.00-0.029) H* 09/29/16 20:12 C-Reactive Protein 11.40 mg/dL (0.00-1.30) H 11/05/16 13:25 Total Protein 6.1 g/dL (6.3-8.2) L 11/11/16 06:59 Albumin 1.8 g/dL (3.9-5) L 11/06/16 06:25 Albumin/Globulin Ratio 0.4 % 11/06/16 06:25 Prealbumin 0.180 g/L (0.200-0.400) L 11/06/16 06:25 Triglycerides 137 mg/dL (2-149) 09/29/16 20:12 Cholesterol 31 mg/dL (50-199) L 09/29/16 20:12 LDL Cholesterol Direct 4 mg/dL (50-130) L 09/29/16 20:12 HDL Cholesterol 3 mg/dL (40-59) L 09/29/16 20:12 Cholesterol/HDL Ratio 10.33 % 09/29/16 20:12 Angiotensin Convert Enz See scanned report 09/08/16 11:48 Renin 0.99 ng/mL/h (0.25-5.82) 10/07/16 10:56 Aldosterone <1 ng/dL () 10/07/16 10:56 Aldosterone/Renin Dir see below 10/07/16 10:56 Serotonin Release Assay See scanned report 09/29/16 13:35 TSH 1.010 mlU/mL (0.270-4.200) 09/07/16 08:37 HCG, Qual Negative (Negative) 09/03/16 00:10 Urine Color Yellow (Yellow) 11/05/16 13:09 Urine Turbidity Clear (Clear) 11/05/16 13:09 Urine pH 9.0 (5.0-7.0) H 11/05/16 13:09 Ur Specific [place] 1.011 (1.003-1.030) 11/05/16 13:09 Urine Protein 100 mg/dl mg/dL (Negative) 11/05/16 13:09 Urine Glucose (UA) Neg mg/dL (Negative) 11/05/16 13:09 Urine Ketones Neg mg/dL (Negative) 11/05/16 13:09 Urine Blood Neg (Negative) 11/05/16 13:09 Urine Nitrite Neg (Negative) 11/05/16 13:09 Urine Bilirubin Neg (Negative) 11/05/16 13:09 Urine Urobilinogen < 2.0 mg/dL (<2.0) 11/05/16 13:09 Ur Leukocyte Esterase Neg (Negative) 11/05/16 13:09 Urine WBC (Auto) 4.0 /HPF (0.0-6.0) 11/05/16 13:09 Urine RBC (Auto) 1.0 /HPF (0.0-6.0) 11/05/16 13:09 U Epithel Cells (Auto) 1.0 /HPF (0-13.0) 10/07/16 18:30 Urine Bacteria (Auto) 4+ /HPF (Negative) 11/05/16 13:09 Urine WBC Clumps 2+ /HPF 09/07/16 02:47 Hyaline Casts 4 /LPF 09/07/16 02:47 Urine Mucus Few /HPF 10/07/16 18:30 Urine Yeast (Budding) 3+ /HPF 10/07/16 18:30 Urine Eosinophils None seen (None Seen) 09/07/16 16:00 Urine Total Volume 950 11/12/16 10:18 Urine Creatinine 19.7 mg/dL (0.1-20.0) 11/12/16 10:18 Height (in) 65.0 inches 11/12/16 10:18 Weight (lb) 181.0 lbs 11/12/16 10:18 Creatinine Clearance 5 11/12/16 10:18 Urine Sodium 36 mEq/L 09/16/16 19:19 Urine Total Protein 16 mg/dL (5-11.8) H 09/16/16 19:19 Fluid Total Protein < 3.0 (15.0-45.0) L 11/10/16 14:20 Fluid LDH 123 11/10/16 14:20 Vancomycin Trough 2.3 ug/mL (5.0-20.0) L 09/21/16 13:00 Random Vancomycin 24.7 ug/mL (0-40.0) 11/12/16 04:00 Urine Opiates Screen Presumptive negative 09/03/16 15:11 Urine Methadone Screen Presumptive positive 09/03/16 15:11 Ur Barbiturates Screen Presumptive positive 09/03/16 15:11 Ur Phencyclidine Scrn Presumptive negative 09/03/16 15:11 Ur Amphetamines Screen Presumptive negative 09/03/16 15:11 U Benzodiazepines Scrn Presumptive negative 09/03/16 15:11 Urine Cocaine Screen Presumptive negative 09/03/16 15:11 U Marijuana (THC) Screen Presumptive positive 09/03/16 15:11 Drugs of Abuse Note Disclamer 09/03/16 15:11 Rheumatoid Factor 24 IU/ml (0-13) H 09/08/16 11:48 SAHIL Screen Negative (Negative) 09/07/16 09: Proteinase 3 (PR3) Ab <1.0 AI (<1.0) 09/07/16 09:20 Myeloperoxidase Ab <1.0 AI (<1.0) 09/07/16 09:20 Sjogren's Antibody <1.0 AI (<1.0) 09/08/16 15:35 Scl-70 Scleroderma Ab <1.0 AI (<1.0) 09/08/16 15:35 Centromere B Antibody <1.0 AI (<1.0) 09/08/16 12:02 Heparin-induced Plt Ab Negative (Negative) 09/29/16 13:35 UF Heparin High Dose 11 % Release 09/29/16 13:35 SUDHIR UFH Low Dose 0.1 6 % Release 09/29/16 13:35 SUDHIR UFH Low Dose 0.5 8 % Release 09/29/16 13:35 Cardiolipid IgG Ab <14 GPL (<=14) 09/12/16 09:59 Cardiolipid IgA Ab <11 APL (<=11) 09/12/16 09:59 Cardiolipid IgM Ab <12 MPL (<=12) 09/12/16 09:59 Complement C3 148 mg/dL (90-180) 09/07/16 09:20 Complement C4 58 mg/dL (16-47) H 09/07/16 09:20 RPR Nonreactive (Nonreactive) 09/08/16 11:48 Hepatitis A IgM Ab Non-reactive (NonReactive) 09/24/16 14:40 Hep Bs Antigen Non-reactive (Negative) 09/24/16 14:40 Hep B Core IgM Ab Non-reactive (NonReactive) 09/24/16 14:40 Hepatitis C Antibody Non-reactive (NonReactive) 09/24/16 14:40 HIV 1&2 Antibody Rapid Non react (Non React) 09/08/16 11:48 HIV P24 Antigen Non react (Non React) 09/08/16 11:48 Miscellaneous Test Flexitest 1 H 11/05/16 13:25 Blood Type A POSITIVE 11/07/16 09:37 Antibody Screen Negative 11/07/16 09:37 DELORIS Antibody Screen Negative 09/25/16 10:30 Crossmatch See Detail 11/07/16 09:37
[2016-11-22 09:07] LABS: Calcium 8.9 mg/dL (8.4-10.2)
[2016-11-22 09:26] LABS: Hematocrit 24.2 % (30.3-42.9); Hemoglobin 7.5 gm/dl (10.1-14.3); Mean Corpuscular HGB Conc 31 % (30-34); Mean Corpuscular Hemoglobin 27 pg (28-32); Mean Corpuscular Volume 89 fl (79-97); Platelet Count 348 K/mm3 (140-440); Red Blood Count 2.73 M/mm3 (3.65-5.03); Red Cell Distribution Width 17.4 % (13.2-15.2)
--- NOTE | 2016-11-22 09:59 | Progress Note ---
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 shift * Acute hypoxic respiratory failure * Left renal artery stenosis * Metabolic acidosis - improved * Anemia * Hyponatremia - multifactorial * tachycardia Plan: * hemodialysis only if hemodynamically stable * add bicarb gtt * monitor for renal recovery * vasopressors--titrate to map 65 * Rate control per cardiology * Dose medications for renal function * Avoid potential nephrotoxins Subjective Date of service: 11/22/16 Principal diagnosis: Acute resp failure on MVS; S/P Acute CVA; Acute Encephalopathy; JUANITA Interval history: new events from last pm noted Objective - Exam Narrative Exam: Gen. appearance: Patient lying in bed, no apparent distress, 4. restraints HEENT: Normocephalic, atraumatic, pupils equally round and reactive to light, extraocular movement intact, and no sclericterus,. No JVD or thyromegaly or nodule,neck supple, no carotid bruit ,mucous membranes moist, unable to examine oral cavity Heart: S1, S2, regular rate and rhythm Lungs: Clear to auscultation bilaterally, breathing comfortable Abdomen: Positive bowel sounds, nontender, nondistended, no organomegaly Extremity: No edema, cyanosis, clubbing Skin: No rash, nodules, warm, dry Neuro: Difficult to assess, facial droop, moves all 4 extremities - Vital Signs Vital signs: Vital Signs - 12hr 11/21/16 11/21/16 11/21/16 22:00 22:15 22:30 Temperature Pulse Rate 127 H 130 H 129 H Pulse Rate [ From Monitor] Respiratory 29 H 31 H 29 H Rate Blood Pressure 130/68 134/77 128/76 O2 Sat by Pulse 97 99 99 Oximetry O2 Sat by Pulse Oximetry [ Assessment] 11/21/16 11/21/16 11/21/16 22:45 23:00 23:06 Temperature Pulse Rate 131 H 130 H 101 H Pulse Rate [ From Monitor] Respiratory 29 H 30 H Rate Blood Pressure 142/78 127/76 O2 Sat by Pulse 98 98 98 Oximetry O2 Sat by Pulse Oximetry [ Assessment] 11/21/16 11/21/16 11/21/16 23:15 23:20 23:30 Temperature Pulse Rate 131 H 130 H 132 H Pulse Rate [ From Monitor] Respiratory 19 19 21 Rate Blood Pressure 125/70 125/70 123/77 O2 Sat by Pulse 99 99 99 Oximetry O2 Sat by Pulse Oximetry [ Assessment] 11/21/16 11/21/16 11/21/16 23:45 23:50 23:51 Temperature Pulse Rate 136 H 130 H 130 H Pulse Rate [ From Monitor] Respiratory 21 Rate Blood Pressure 126/82 120/70 120/70 O2 Sat by Pulse 100 Oximetry O2 Sat by Pulse Oximetry [ Assessment] 11/22/16 11/22/16 11/22/16 00:00 00:15 00:30 Temperature 100.9 F H Pulse Rate 133 H 134 H 127 H Pulse Rate [ From Monitor] Respiratory 27 H 28 H 29 H Rate Blood Pressure 121/73 138/78 126/82 O2 Sat by Pulse 100 100 100 Oximetry O2 Sat by Pulse Oximetry [ Assessment] 11/22/16 11/22/16 11/22/16 00:32 00:45 01:00 Temperature Pulse Rate 133 H 140 H Pulse Rate [ 130 H From Monitor] Respiratory 26 H 46 H 56 H Rate Blood Pressure 211/92 222/102 O2 Sat by Pulse 98 100 100 Oximetry O2 Sat by Pulse Oximetry [ Assessment] 11/22/16 11/22/16 11/22/16 01:15 01:30 01:45 Temperature Pulse Rate 140 H 135 H 135 H Pulse Rate [ From Monitor] Respiratory 53 H 54 H 58 H Rate Blood Pressure 209/95 198/92 192/93 O2 Sat by Pulse 100 100 100 Oximetry O2 Sat by Pulse Oximetry [ Assessment] 11/22/16 11/22/16 11/22/16 02:00 02:16 02:30 Temperature Pulse Rate 132 H 125 H 123 H Pulse Rate [ From Monitor] Respiratory 30 H 29 H 30 H Rate Blood Pressure 192/93 77/24 84/43 O2 Sat by Pulse 100 100 100 Oximetry O2 Sat by Pulse Oximetry [ Assessment] 11/22/16 11/22/16 11/22/16 02:37 02:39 02:45 Temperature Pulse Rate 113 H 125 H Pulse Rate [ From Monitor] Respiratory 27 H Rate Blood Pressure 98/62 93/48 O2 Sat by Pulse 100 100 Oximetry O2 Sat by Pulse 100 Oximetry [ Assessment] 11/22/16 11/22/16 11/22/16 03:00 03:15 03:30 Temperature Pulse Rate 122 H 122 H 122 H Pulse Rate [ From Monitor] Respiratory 25 H 24 30 H Rate Blood Pressure 93/48 100/58 106/62 O2 Sat by Pulse 100 100 100 Oximetry O2 Sat by Pulse Oximetry [ Assessment] 11/22/16 11/22/16 11/22/16 03:45 03:58 04:00 Temperature 101.6 F H Pulse Rate 119 H 118 H Pulse Rate [ From Monitor] Respiratory 40 H 23 Rate Blood Pressure 114/61 105/64 O2 Sat by Pulse 100 100 Oximetry O2 Sat by Pulse Oximetry [ Assessment] 11/22/16 11/22/16 11/22/16 04:15 04:30 04:32 Temperature Pulse Rate 120 H 118 H Pulse Rate [ From Monitor] Respiratory 23 23 15 Rate Blood Pressure 112/58 105/54 O2 Sat by Pulse 100 100 98 Oximetry O2 Sat by Pulse Oximetry [ Assessment] 11/22/16 11/22/16 11/22/16 04:46 04:50 05:00 Temperature Pulse Rate 129 H 121 H 127 H Pulse Rate [ From Monitor] Respiratory 22 25 H Rate Blood Pressure 126/69 114/60 O2 Sat by Pulse 100 100 99 Oximetry O2 Sat by Pulse Oximetry [ Assessment] 11/22/16 11/22/16 11/22/16 05:15 05:30 05:45 Temperature Pulse Rate 123 H 123 H 117 H Pulse Rate [ From Monitor] Respiratory 24 24 22 Rate Blood Pressure 110/59 115/57 113/50 O2 Sat by Pulse 100 100 99 Oximetry O2 Sat by Pulse Oximetry [ Assessment] 11/22/16 11/22/16 11/22/16 06:00 06:15 06:30 Temperature Pulse Rate 120 H 123 H 119 H Pulse Rate [ From Monitor] Respiratory 23 23 20 Rate Blood Pressure 109/56 131/69 131/69 O2 Sat by Pulse 99 100 100 Oximetry O2 Sat by Pulse Oximetry [ Assessment] 11/22/16 11/22/16 11/22/16 06:45 06:50 07:57 Temperature 99.5 F Pulse Rate 116 H 122 H Pulse Rate [ From Monitor] Respiratory 23 Rate Blood Pressure 124/68 124/68 O2 Sat by Pulse 100 Oximetry O2 Sat by Pulse Oximetry [ Assessment] 11/22/16 08:50 Temperature Pulse Rate 116 H Pulse Rate [ From Monitor] Respiratory Rate Blood Pressure 133/70 O2 Sat by Pulse 100 Oximetry O2 Sat by Pulse Oximetry [ Assessment] - Lab 11/22/16 05:00 11/22/16 05:00 Most recent lab results Calcium 8.9 mg/dL (8.4-10.2) 11/22/16 05:00 Phosphorus 4.40 mg/dL (2.5-4.5) 11/07/16 06:30 Magnesium 2.20 mg/dL (1.7-2.3) 11/07/16 06:30 Urine Creatinine 19.7 mg/dL (0.1-20.0) 11/12/16 10:18 Urine Sodium 36 mEq/L 09/16/16 19:19 Urine Total Protein 16 mg/dL (5-11.8) H 09/16/16 19:19
[2016-11-22] MEDS: QUESTRAN PO SCH (10:24)
[2016-11-22] MEDS: APRESOLINE PO SCH ×3 (10:24→21:38)
[2016-11-22] MEDS: DIOVAN FEEDTUBE SCH (10:24)
[2016-11-22] MEDS: PROTONIX FEEDTUBE SCH (10:24)
[2016-11-22] MEDS: NORVASC PO SCH (10:24)
[2016-11-22] MEDS: SODIUM BICARBONATE 150 MEQ in D5W 1,000 ML IV SCH (11:01)
--- NOTE | 2016-11-22 11:30 | Progress Note ---
Assessment and Plan - Patient Problems (1) Dislodged gastrostomy tube Current Visit: Yes Status: Acute Plan to address problem: Patient continues to have large amount of output from her wounds however, no evidence of subcutaneous abscess. Continue ostomy bags for drainage. Currently patient is on vasopressors following the events overnight. Under these circumstances would hold on any additional procedures to place a feeding tube. Continue supportive care wean ventilator as tolerated, wean pressors as tolerated. Subjective Date of service: 11/22/16 Patient Reports: Positive: other (patient coded overnight. Now on vasopressors. Still tachycardic. On ventilator at 40% FiO2 via trach.) Objective Vital Signs - 12hr 11/21/16 11/21/16 11/21/16 23:30 23:45 23:50 Temperature Pulse Rate 132 H 136 H 130 H Pulse Rate [ From Monitor] Respiratory 21 21 Rate Blood Pressure 123/77 126/82 120/70 O2 Sat by Pulse 99 100 Oximetry O2 Sat by Pulse Oximetry [ Assessment] 11/21/16 11/22/16 11/22/16 23:51 00:00 00:15 Temperature 100.9 F H Pulse Rate 130 H 133 H 134 H Pulse Rate [ From Monitor] Respiratory 27 H 28 H Rate Blood Pressure 120/70 121/73 138/78 O2 Sat by Pulse 100 100 Oximetry O2 Sat by Pulse Oximetry [ Assessment] 11/22/16 11/22/16 11/22/16 00:30 00:32 00:45 Temperature Pulse Rate 127 H 133 H Pulse Rate [ 130 H From Monitor] Respiratory 29 H 26 H 46 H Rate Blood Pressure 126/82 211/92 O2 Sat by Pulse 100 98 100 Oximetry O2 Sat by Pulse Oximetry [ Assessment] 11/22/16 11/22/16 11/22/16 01:00 01:15 01:30 Temperature Pulse Rate 140 H 140 H 135 H Pulse Rate [ From Monitor] Respiratory 56 H 53 H 54 H Rate Blood Pressure 222/102 209/95 198/92 O2 Sat by Pulse 100 100 100 Oximetry O2 Sat by Pulse Oximetry [ Assessment] 11/22/16 11/22/16 11/22/16 01:45 02:00 02:16 Temperature Pulse Rate 135 H 132 H 125 H Pulse Rate [ From Monitor] Respiratory 58 H 30 H 29 H Rate Blood Pressure 192/93 192/93 77/24 O2 Sat by Pulse 100 100 100 Oximetry O2 Sat by Pulse Oximetry [ Assessment] 11/22/16 11/22/16 11/22/16 02:30 02:37 02:39 Temperature Pulse Rate 123 H 113 H Pulse Rate [ From Monitor] Respiratory 30 H Rate Blood Pressure 84/43 98/62 O2 Sat by Pulse 100 100 Oximetry O2 Sat by Pulse 100 Oximetry [ Assessment] 11/22/16 11/22/16 11/22/16 02:45 03:00 03:15 Temperature Pulse Rate 125 H 122 H 122 H Pulse Rate [ From Monitor] Respiratory 27 H 25 H 24 Rate Blood Pressure 93/48 93/48 100/58 O2 Sat by Pulse 100 100 100 Oximetry O2 Sat by Pulse Oximetry [ Assessment] 11/22/16 11/22/16 11/22/16 03:30 03:45 03:58 Temperature 101.6 F H Pulse Rate 122 H 119 H Pulse Rate [ From Monitor] Respiratory 30 H 40 H Rate Blood Pressure 106/62 114/61 O2 Sat by Pulse 100 100 Oximetry O2 Sat by Pulse Oximetry [ Assessment] 11/22/16 11/22/16 11/22/16 04:00 04:15 04:30 Temperature Pulse Rate 118 H 120 H 118 H Pulse Rate [ From Monitor] Respiratory 23 23 23 Rate Blood Pressure 105/64 112/58 105/54 O2 Sat by Pulse 100 100 100 Oximetry O2 Sat by Pulse Oximetry [ Assessment] 11/22/16 11/22/16 11/22/16 04:32 04:46 04:50 Temperature Pulse Rate 129 H 121 H Pulse Rate [ From Monitor] Respiratory 15 22 Rate Blood Pressure 126/69 O2 Sat by Pulse 98 100 100 Oximetry O2 Sat by Pulse Oximetry [ Assessment] 11/22/16 11/22/16 11/22/16 05:00 05:15 05:30 Temperature Pulse Rate 127 H 123 H 123 H Pulse Rate [ From Monitor] Respiratory 25 H 24 24 Rate Blood Pressure 114/60 110/59 115/57 O2 Sat by Pulse 99 100 100 Oximetry O2 Sat by Pulse Oximetry [ Assessment] 11/22/16 11/22/16 11/22/16 05:45 06:00 06:15 Temperature Pulse Rate 117 H 120 H 123 H Pulse Rate [ From Monitor] Respiratory 22 23 23 Rate Blood Pressure 113/50 109/56 131/69 O2 Sat by Pulse 99 99 100 Oximetry O2 Sat by Pulse Oximetry [ Assessment] 11/22/16 11/22/16 11/22/16 06:30 06:45 06:50 Temperature Pulse Rate 119 H 116 H 122 H Pulse Rate [ From Monitor] Respiratory 20 23 Rate Blood Pressure 131/69 124/68 124/68 O2 Sat by Pulse 100 100 Oximetry O2 Sat by Pulse Oximetry [ Assessment] 11/22/16 11/22/16 11/22/16 07:57 08:00 08:50 Temperature 99.5 F Pulse Rate 116 H Pulse Rate [ From Monitor] Respiratory Rate Blood Pressure 133/70 O2 Sat by Pulse 100 Oximetry O2 Sat by Pulse 99 Oximetry [ Assessment] 11/22/16 10:04 Temperature Pulse Rate 112 H Pulse Rate [ From Monitor] Respiratory Rate Blood Pressure 133/70 O2 Sat by Pulse 0 L Oximetry O2 Sat by Pulse Oximetry [ Assessment] - General physical appearance no distress, chronically ill - Respiratory normal respiratory effort - Abdomen soft, not tender, wound (with bloody purulent drainage, no erythema and induration about around the incision sites) - Neurologic other (noncommunicative, eyes open) - Labs 11/22/16 05:00 11/22/16 05:00 Diabetes panel 11/22/16 Range/Units 05:00 Sodium 134 L (137-145) mmol/L Potassium 4.5 (3.6-5.0) mmol/L Chloride 95.9 L (98-107) mmol/L Carbon Dioxide 14 L D (22-30) mmol/L BUN 51 H (7-17) mg/dL Creatinine 2.6 H (0.7-1.2) mg/dL Glucose 86 (65-100) mg/dL Calcium 8.9 (8.4-10.2) mg/dL Calcium panel 11/22/16 Range/Units 05:00 Calcium 8.9 (8.4-10.2) mg/dL Pituitary panel 11/22/16 Range/Units 05:00 Sodium 134 L (137-145) mmol/L Potassium 4.5 (3.6-5.0) mmol/L Chloride 95.9 L (98-107) mmol/L Carbon Dioxide 14 L D (22-30) mmol/L BUN 51 H (7-17) mg/dL Creatinine 2.6 H (0.7-1.2) mg/dL Glucose 86 (65-100) mg/dL Calcium 8.9 (8.4-10.2) mg/dL Adrenal panel 11/22/16 Range/Units 05:00 Sodium 134 L (137-145) mmol/L Potassium 4.5 (3.6-5.0) mmol/L Chloride 95.9 L (98-107) mmol/L Carbon Dioxide 14 L D (22-30) mmol/L BUN 51 H (7-17) mg/dL Creatinine 2.6 H (0.7-1.2) mg/dL Glucose 86 (65-100) mg/dL Calcium 8.9 (8.4-10.2) mg/dL
[2016-11-22 12:19] LABS: Monocytes % (Manual) 0 % (0.0-7.3); Myelocytes # (Manual) 0.6 K/mm3; Total Cells Counted 100
[2016-11-22] MEDS: DURAGESIC TD SCH (14:23)
[2016-11-23] MEDS: LOPRESSOR FEEDTUBE SCH ×2 (03:30→11:00)
[2016-11-23 05:09] LABS: Hematocrit 21.5 % (30.3-42.9); Hemoglobin 7.2 gm/dl (10.1-14.3); Mean Corpuscular Volume 85 fl (79-97); Red Blood Count 2.52 M/mm3 (3.65-5.03)
[2016-11-23 05:10] LABS: Basophils % (Auto) 0.2 % (0.0-1.8); Eosinophils % (Auto) 0.4 % (0.0-4.3); Lymphocytes # (Auto) 2.2 K/mm3 (1.2-5.4); Lymphocytes % (Auto) 20.5 % (13.4-35.0); Mean Corpuscular HGB Conc 34 % (30-34); Mean Corpuscular Hemoglobin 29 pg (28-32); Monocytes # (Auto) 1.4 K/mm3 (0.0-0.8); Monocytes % (Auto) 12.4 % (0.0-7.3); Platelet Count 283 K/mm3 (140-440); Red Cell Distribution Width 17.1 % (13.2-15.2)
[2016-11-23 05:30] LABS: Calcium 8.5 mg/dL (8.4-10.2)
--- NOTE | 2016-11-23 08:10 | XRay Report ---
AP CHEST :11/23/16 CLINICAL: Intubated.Follow up respiratory failure. COMPARISON:11/22/16 FINDINGS: Tubes and lines are satisfactory and unchanged. Borderline large heart with heart size accentuated by the technique. Normal pulmonary vessels. Mild bibasal atelectasis versus small pleural effusions. No pneumothorax. IMPRESSION: Borderline large heart and questionable small pleural effusions.No pulmonary edema.
[2016-11-23] MEDS: HumuLIN R SUB-Q SCH ×4 (08:35→17:45)
[2016-11-23] MEDS: CATAPRES PO SCH ×2 (08:36→15:07)
[2016-11-23] MEDS: APRESOLINE PO SCH ×2 (08:37→15:08)
--- NOTE | 2016-11-23 09:00 | Progress Note ---
Assessment and Plan Assessment and plan: Patient is 46-year-old woman with a history of hypertension, diabetes, asthma, hyperlipidemia, chronic kidney disease and anxiety , who was brought in by family because, she couldn't get her words out, her face was also twisted, she was admitted for acute CVA and accelerated hypertension, she had a hx of poor adherence with her medications, and uncontrolled htn. Patient's SBP on admission was noted be greater than 260. TPA was started but this was discontinued after 5 minutes because her blood pressure became uncontrolled. The TPA was not initiated again because the patient was outside the TPA window. Status post cardiac arrest yesterday, 11/21 Received CPR and attained ROSC, vitals stable, glucose stable, chest x-ray improving, labs stable -Most likely related to aspiration as cardiac arrest happened shortly after the patient had emesis Fever She continues to have fevers. ID Physician was following but has signed off. Re-consult ID Physician. I discussed case with her Catheter site was growing multiple organisms, and she had completed Antibiotics s/p R thoracentesis on 11/14, 240cc of serous fluid removed, cx of fluid was negative Stool negative for C. difficile -Severe Sepsis with septic shock, recurrent. Patient with multiple episodes of sepsis. Initial episode due to presumed aspiration pneumonia and septic episode on 09/23 from candidemia then a third episode from peritonitis from gastric perforation from dislodged PEG , there was an abscess in the abdomen present at that time that was draining pus. +/-UTI. The latest episode was related to surgical site infection. Antibiotics discontinued Surgical wound infection/gram-negative sepsis/candidemia/peritonitis PEG has been removed She will need to be on tube feeds through NG tube for a month, and then either a gastrostomy or jejunostomy tube replaced after her GI wounds have healed and infection is cleared -continue wound care to ostomy sites JUANITA, now ESRD Likely due to vasomotor nephropathy and ATN given sepsis Nephrology input appreciated, continue hemodialysis as per Nephrolog Acute CVA with infarct. sp TPA Continue neuro checks. Neurology input appreciated, CT shows continued evolution of left MCA infarct with slight mass effect and edema, and there is no hemorrhage - PRINCE showed hyperdynamic with ef of 75%, neither clot nor septal defect seen - MRA Brain shows near complete occlusion of M2 and M3 of the left MCA - Repeat CT scan done on 09/11, shows stable findings - carotid doppler negative - Echo shows preserved systolic function but does show some left ventricular diastolic dysfunction - continue asa and statin for secondary ppx Persistent vegetative state This patient's needs placement at SNF -She was denied for LTACH Acute hypoxic respiratory failure requiring MV >96hrs Status post tracheostomy, was on T piece now put back on Vent yesterday after cardiac arrest Nosocomial acquired aspiration pneumonia/sepsis/UTI She had completed a course of antibiotics. Asthma/COPD exacerbation Now has trach Acute Toxic Metabolic encephalopathy. Multitifactorial, mostly secondary to evolution of CVA Hypertensive Emergency continue BP meds Bilateral pleural effusion, s/p right thoracentesis 11/14 fluid analysis cw transudate Paroxysmal atrial fibrillation with rapid ventricular rate and hyper-coaguable state , failed cardioversion Continue current medications, Not a candidate for anticoagulation secondary to anemia, thrombocytopenia, and massive CVA Hypokalemia/Hypomagnesemia/hypophosphatemia. Replete electrolytes as needed. Diabetes type 2. Continue sliding-scale regular insulin and Accu-Cheks. Hyperlipidemia. Continue statin Nutrition continue tube feeds Anemia requiring multiple transfusions/acute blood loss Has received total 13 units of PRBC this admission. Will continue to transfuse to keep Hemoglobin above 7 Hemoglobin 7.2 today Her POA is her Brother, Jam [phone] Hospitalist discussed code status and very poor prognosis with family, but they still want full code status Disposition. Very poor prognosis. Plan is for SNF placement. She was denied by LTAC The high probability of a clinically significant, sudden or life threatening deterioration of the [4] system(s) required my full and direct attention, intervention and personal management. The aggregate critical care time was [36] minutes. This time is in addition to time spent performing reported procedures but includes the following: [x] Data Review and interpretation [x] Patient assessment and monitoring of vital signs [x] Documentation [x] Medication orders and management History Interval history: Patient has had a prolonged stay. She had cardiac arrest 2 days ago,was resuscitated and then transferred to ICU Fever Hospitalist Physical - Physical exam Narrative exam: Gen appearance: Trach, not in acute distress, on Ventilator HEENT: Atraumatic Neck: Tracheostomy Lungs: Coarse breath sounds bilaterally, no crackles or wheezes Heart :S1 and S2 irregular, rapid,no murmurs, rubs or gallop Abdomen: Soft, non tender, nod distended, ostomy bags, bowel sounds present Extremities : bilateral edema, upper and lower ext Neuro: Minimal responsive, opens eyes, Does not follow commands - Constitutional Vitals: Temp Pulse Resp BP Pulse Ox 98.6 F 93 H 17 141/88 100 11/23/16 08:00 11/23/16 08:15 11/23/16 08:15 11/23/16 08:15 11/23/16 08:15 General appearance: Present: no acute distress Results - Labs CBC & Chem 7: 11/23/16 04:06 11/23/16 04:06 Labs: Laboratory Last Values WBC 11.0 K/mm3 (4.5-11.0) 11/23/16 04:06 RBC 2.52 M/mm3 (3.65-5.03) L 11/23/16 04:06 Hgb 7.2 gm/dl (10.1-14.3) L 11/23/16 04:06 Hct 21.5 % (30.3-42.9) L 11/23/16 04:06 MCV 85 fl (79-97) 11/23/16 04:06 MCH 29 pg (28-32) 11/23/16 04:06 MCHC 34 % (30-34) 11/23/16 04:06 RDW 17.1 % (13.2-15.2) H 11/23/16 04:06 Plt Count 283 K/mm3 (140-440) 11/23/16 04:06 Lymph % (Auto) 20.5 % (13.4-35.0) 11/23/16 04:06 [place] % (Auto) 12.4 % (0.0-7.3) H 11/23/16 04:06 Eos % (Auto) 0.4 % (0.0-4.3) 11/23/16 04:06 Baso % (Auto) 0.2 % (0.0-1.8) 11/23/16 04:06 Lymph # 2.2 K/mm3 (1.2-5.4) 11/23/16 04:06 [place] # 1.4 K/mm3 (0.0-0.8) H 11/23/16 04:06 Eos # 0.0 K/mm3 (0.0-0.4) 11/23/16 04:06 Baso # 0.0 K/mm3 (0.0-0.1) 11/23/16 04:06 Add Manual Diff Complete 11/22/16 05:00 Total Counted 100 11/22/16 05:00 Seg Neutrophils % 66.5 % (40.0-70.0) 11/23/16 04:06 Seg Neuts % (Manual) 52.0 % (40.0-70.0) 11/22/16 05:00 Band Neutrophils % 37.0 % 11/22/16 05:00 Lymphocytes % (Manual) 7.0 % (13.4-35.0) L 11/22/16 05:00 Reactive Lymphs % (Man) 0 % 11/22/16 05:00 Monocytes % (Manual) 0 % (0.0-7.3) 11/22/16 05:00 Eosinophils % (Manual) 1.0 % (0.0-4.3) 11/22/16 05:00 Basophils % (Manual) 0 % (0.0-1.8) 11/21/16 07:45 Metamyelocytes % 1.0 % 11/22/16 05:00 Myelocytes % 2.0 % 11/22/16 05:00 Promyelocytes % 0 % 11/22/16 05:00 Blast Cells % 0 % 11/22/16 05:00 Nucleated RBC % Not Reportable 11/22/16 05:00 Seg Neutrophils # 7.3 K/mm3 (1.8-7.7) 11/23/16 04:06 Seg Neutrophils # Man 15.4 K/mm3 (1.8-7.7) H 11/22/16 05:00 Band Neutrophils # 11.0 K/mm3 11/22/16 05:00 Lymphocytes # (Manual) 2.1 K/mm3 (1.2-5.4) 11/22/16 05:00 Abs React Lymphs (Man) 0.0 K/mm3 11/22/16 05:00 Monocytes # (Manual) 0.0 K/mm3 (0.0-0.8) 11/22/16 05:00 Eosinophils # (Manual) 0.3 K/mm3 (0.0-0.4) 11/22/16 05:00 Basophils # (Manual) 0.0 K/mm3 (0.0-0.1) 11/22/16 05:00 Metamyelocytes # 0.3 K/mm3 11/22/16 05:00 Myelocytes # 0.6 K/mm3 11/22/16 05:00 Promyelocytes # 0.0 K/mm3 11/22/16 05:00 Blast Cells # 0.0 K/mm3 11/22/16 05:00 Pathologist Review 09/13/16 04:00 WBC Morphology Not Reportable 11/22/16 05:00 Hypersegmented Neuts Not Reportable 11/22/16 05:00 Hyposegmented Neuts Not Reportable 11/22/16 05:00 Hypogranular Neuts Not Reportable 11/22/16 05:00 Smudge Cells Not Reportable 11/22/16 05:00 Toxic Granulation Not Reportable 11/22/16 05:00 Toxic Vacuolation Not Reportable 11/22/16 05:00 Dohle Bodies Not Reportable 11/22/16 05:00 Pelger-Huet Anomaly Not Reportable 11/22/16 05:00 Jasmina Rods Not Reportable 11/22/16 05:00 Platelet Estimate Not Reportable 11/22/16 05:00 Clumped Platelets Not Reportable 11/22/16 05:00 Plt Clumps, EDTA Not Reportable 11/22/16 05:00 Large Platelets Not Reportable 11/22/16 05:00 Giant Platelets Not Reportable 11/22/16 05:00 Platelet Satelliting Not Reportable 11/22/16 05:00 Plt Morphology Comment Not Reportable 11/22/16 05:00 RBC Morphology Not Reportable 11/22/16 05:00 Dimorphic RBCs Not Reportable 11/22/16 05:00 Polychromasia Few 11/22/16 05:00 Hypochromasia Not Reportable 11/22/16 05:00 Poikilocytosis Not Reportable 11/22/16 05:00 Anisocytosis Not Reportable 11/22/16 05:00 Microcytosis Not Reportable 11/22/16 05:00 Macrocytosis Not Reportable 11/22/16 05:00 Spherocytes Not Reportable 11/22/16 05:00 Pappenheimer Bodies Not Reportable 11/22/16 05:00 Sickle Cells Not Reportable 11/22/16 05:00 Target Cells Not Reportable 11/22/16 05:00 Tear Drop Cells Not Reportable 11/22/16 05:00 Ovalocytes Not Reportable 11/22/16 05:00 Stomatocytes Few 10/06/16 03:50 Helmet Cells Not Reportable 11/22/16 05:00 [place] Bodies Not Reportable 11/22/16 05:00 [place] Rings Not Reportable 11/22/16 05:00 [place] Cells Not Reportable 11/22/16 05:00 Bite Cells Not Reportable 11/22/16 05:00 Crenated Cell Not Reportable 11/22/16 05:00 Elliptocytes Not Reportable 11/22/16 05:00 Acanthocytes (Spur) Not Reportable 11/22/16 05:00 Rouleaux Not Reportable 11/22/16 05:00 Hemoglobin C Crystals Not Reportable 11/22/16 05:00 Schistocytes Not Reportable 11/22/16 05:00 Malaria parasites Not Reportable 11/22/16 05:00 ESR > 140.0 mm/Hr (0-20) 09/08/16 11:48 Jun Bodies Not Reportable 11/22/16 05:00 Hem Pathologist Commnt No 11/22/16 05:00 PT 16.8 Sec. (12.2-14.9) H 11/17/16 03:20 INR 1.37 (0.87-1.13) H 11/17/16 03:20 APTT 33.0 Sec. (24.2-36.6) 10/09/16 03:45 Thrombin Time 16.8 Sec. (15.1-19.6) 09/03/16 00:10 Fibrinogen 750 mg/dl (211-480) H 09/08/16 11:48 Lupus Anticoagulant see below 09/12/16 09:59 LA PTT Baseline See scanned report 09/12/16 09:59 dRVVT Confirm Interp Positive (Negative) H 09/12/16 09:59 dRVVT Screen 50:50 See scanned report 09/12/16 09:59 dRVVT Mix Interpret See scanned report 09/12/16 09:59 Protein C Antigen 122 % (70-140) 09/08/16 15:35 Free Protein S 97 % normal (50-147) 09/08/16 15:35 Total Protein S 109 % (70-140) 09/08/16 15:35 Antithrombin III Ag 100 % (80-120) 09/08/16 15:35 Heparin Anti-Xa, Unfract Negative (Negative) 09/29/16 13:35 Factor V Activity 182 % (65-150) H 09/08/16 15:35 POC ABG pH 7.493 (7.35-7.45) H 11/23/16 03:44 POC ABG pCO2 29.5 (35-45) L 11/23/16 03:44 POC ABG pO2 49 (80-105) L 11/23/16 03:44 POC ABG HCO3 22.7 11/23/16 03:44 POC ABG Total CO2 24 11/23/16 03:44 POC ABG O2 Sat 88 11/23/16 03:44 POC ABG Base Excess -1 11/23/16 03:44 FiO2 40 % 11/23/16 03:44 Sodium 136 mmol/L (137-145) L 11/23/16 04:06 Potassium 4.2 mmol/L (3.6-5.0) 11/23/16 04:06 Chloride 95.2 mmol/L (98-107) L 11/23/16 04:06 Carbon Dioxide 22 mmol/L (22-30) D 11/23/16 04:06 Anion Gap 23 mmol/L 11/23/16 04:06 BUN 60 mg/dL (7-17) H 11/23/16 04:06 Creatinine 2.9 mg/dL (0.7-1.2) H 11/23/16 04:06 Estimated GFR 21 ml/min 11/23/16 04:06 BUN/Creatinine Ratio 21 % 11/23/16 04:06 Glucose 72 mg/dL (65-100) 11/23/16 04:06 POC Glucose 78 (70-105) 11/23/16 06:05 Osmolality 351 Mosm/kg 09/16/16 11:47 Lactic Acid 4.50 mmol/L (0.7-2.0) H* 09/28/16 07:25 Calcium 8.5 mg/dL (8.4-10.2) 11/23/16 04:06 Phosphorus 4.00 mg/dL (2.5-4.5) 11/23/16 04:06 Magnesium 1.60 mg/dL (1.7-2.3) L 11/23/16 04:06 Total Bilirubin 0.20 mg/dL (0.1-1.2) 11/06/16 06:25 Direct Bilirubin 0.3 mg/dL (0-0.2) H 10/10/16 05:00 Indirect Bilirubin 0.1 mg/dL 10/10/16 05:00 AST 103 units/L (5-40) H 11/06/16 06:25 ALT 77 units/L (7-56) H 11/06/16 06:25 Alkaline Phosphatase 285 units/L (35-129) H 11/06/16 06:25 Ammonia 27.0 umol/L (25-60) 09/07/16 08:37 Lactate Dehydrogenase 196 units/L (91-180) H 11/11/16 06:59 Total Creatine Kinase 121 units/L (30-135) 09/29/16 20:12 CK-MB (CK-2) < 1.0 ng/mL (0.0-4.0) 09/29/16 20:12 CK-MB (CK-2) Rel Index 0.8 (0-4) 09/29/16 20:12 Troponin T 0.204 ng/mL (0.00-0.029) H* 09/29/16 20:12 C-Reactive Protein 11.40 mg/dL (0.00-1.30) H 11/05/16 13:25 Total Protein 6.1 g/dL (6.3-8.2) L 11/11/16 06:59 Albumin 1.8 g/dL (3.9-5) L 11/06/16 06:25 Albumin/Globulin Ratio 0.4 % 11/06/16 06:25 Prealbumin 0.180 g/L (0.200-0.400) L 11/06/16 06:25 Triglycerides 137 mg/dL (2-149) 09/29/16 20:12 Cholesterol 31 mg/dL (50-199) L 09/29/16 20:12 LDL Cholesterol Direct 4 mg/dL (50-130) L 09/29/16 20:12 HDL Cholesterol 3 mg/dL (40-59) L 09/29/16 20:12 Cholesterol/HDL Ratio 10.33 % 08/10/17 20:12 Angiotensin Convert Enz See scanned report 09/08/16 11:48 Renin 0.99 ng/mL/h (0.25-5.82) 10/07/16 10:56 Aldosterone <1 ng/dL () 10/07/16 10:56 Aldosterone/Renin Dir see below 10/07/16 10:56 Serotonin Release Assay See scanned report 09/29/16 13:35 TSH 1.010 mlU/mL (0.270-4.200) 09/07/16 08:37 HCG, Qual Negative (Negative) 09/03/16 00:10 Urine Color Yellow (Yellow) 11/05/16 13:09 Urine Turbidity Clear (Clear) 11/05/16 13:09 Urine pH 9.0 (5.0-7.0) H 11/05/16 13:09 Ur Specific Critz 1.011 (1.003-1.030) 11/05/16 13:09 Urine Protein 100 mg/dl mg/dL (Negative) 11/05/16 13:09 Urine Glucose (UA) Neg mg/dL (Negative) 11/05/16 13:09 Urine Ketones Neg mg/dL (Negative) 11/05/16 13:09 Urine Blood Neg (Negative) 11/05/16 13:09 Urine Nitrite Neg (Negative) 11/05/16 13:09 Urine Bilirubin Neg (Negative) 11/05/16 13:09 Urine Urobilinogen < 2.0 mg/dL (<2.0) 11/05/16 13:09 Ur Leukocyte Esterase Neg (Negative) 11/05/16 13:09 Urine WBC (Auto) 4.0 /HPF (0.0-6.0) 11/05/16 13:09 Urine RBC (Auto) 1.0 /HPF (0.0-6.0) 11/05/16 13:09 U Epithel Cells (Auto) 1.0 /HPF (0-13.0) 10/07/16 18:30 Urine Bacteria (Auto) 4+ /HPF (Negative) 11/05/16 13:09 Urine WBC Clumps 2+ /HPF 09/07/16 02:47 Hyaline Casts 4 /LPF 09/07/16 02:47 Urine Mucus Few /HPF 10/07/16 18:30 Urine Yeast (Budding) 3+ /HPF 10/07/16 18:30 Urine Eosinophils None seen (None Seen) 09/07/16 16:00 Urine Total Volume 950 11/12/16 10:18 Urine Creatinine 19.7 mg/dL (0.1-20.0) 11/12/16 10:18 Height (in) 65.0 inches 11/12/16 10:18 Weight (lb) 181.0 lbs 11/12/16 10:18 Creatinine Clearance 5 11/12/16 10:18 Urine Sodium 36 mEq/L 09/16/16 19:19 Urine Total Protein 16 mg/dL (5-11.8) H 09/16/16 19:19 Fluid Total Protein < 3.0 (15.0-45.0) L 11/10/16 14:20 Fluid LDH 123 11/10/16 14:20 Vancomycin Trough 2.3 ug/mL (5.0-20.0) L 09/21/16 13:00 Random Vancomycin 24.7 ug/mL (0-40.0) 11/12/16 04:00 Urine Opiates Screen Presumptive negative 09/03/16 15:11 Urine Methadone Screen Presumptive positive 09/03/16 15:11 Ur Barbiturates Screen Presumptive positive 09/03/16 15:11 Ur Phencyclidine Scrn Presumptive negative 09/03/16 15:11 Ur Amphetamines Screen Presumptive negative 09/03/16 15:11 U Benzodiazepines Scrn Presumptive negative 09/03/16 15:11 Urine Cocaine Screen Presumptive negative 09/03/16 15:11 U Marijuana (THC) Screen Presumptive positive 09/03/16 15:11 Drugs of Abuse Note Disclamer 09/03/16 15:11 Rheumatoid Factor 24 IU/ml (0-13) H 09/08/16 11:48 SAHIL Screen Negative (Negative) 09/07/16 09:20 Proteinase 3 (PR3) Ab <1.0 AI (<1.0) 09/07/16 09:20 Myeloperoxidase Ab <1.0 AI (<1.0) 09/07/16 09:20 Sjogren's Antibody <1.0 AI (<1.0) 09/08/16 15:35 Scl-70 Scleroderma Ab <1.0 AI (<1.0) 09/08/16 15:35 Centromere B Antibody <1.0 AI (<1.0) 09/08/16 12:02 Heparin-induced Plt Ab Negative (Negative) 09/29/16 13:35 UF Heparin High Dose 11 % Release 09/29/16 13:35 SUDHIR UFH Low Dose 0.1 6 % Release 09/29/16 13:35 SUDHIR UFH Low Dose 0.5 8 % Release 09/29/16 13:35 Cardiolipid IgG Ab <14 GPL (<=14) 09/12/16 09:59 Cardiolipid IgA Ab <11 APL (<=11) 09/12/16 09:59 Cardiolipid IgM Ab <12 MPL (<=12) 09/12/16 09:59 Complement C3 148 mg/dL (90-180) 09/07/16 09:20 Complement C4 58 mg/dL (16-47) H 09/07/16 09:20 RPR Nonreactive (Nonreactive) 09/08/16 11:48 Hepatitis A IgM Ab Non-reactive (NonReactive) 09/24/16 14:40 Hep Bs Antigen Non-reactive (Negative) 09/24/16 14:40 Hep B Core IgM Ab Non-reactive (NonReactive) 09/24/16 14:40 Hepatitis C Antibody Non-reactive (NonReactive) 09/24/16 14:40 HIV 1&2 Antibody Rapid Non react (Non React) 09/08/16 11:48 HIV P24 Antigen Non react (Non React) 09/08/16 11:48 Miscellaneous Test Flexitest 1 H 11/05/16 13:25 Blood Type A POSITIVE 11/07/16 09:37 Antibody Screen Negative 11/07/16 09:37 DELORIS Antibody Screen Negative 09/25/16 10:30 Crossmatch See Detail 11/07/16 09:37
[2016-11-23] MEDS: DIOVAN FEEDTUBE SCH (09:14)
[2016-11-23] MEDS: NORVASC PO SCH (09:14)
[2016-11-23] MEDS: PROTONIX FEEDTUBE SCH (09:15)
--- NOTE | 2016-11-23 09:37 | Progress Note ---
Assessment and Plan Assessment: 1) Recurrent SIRS: after recent code ? unclear etiology DDx ? reactive ?. Clinically resolved already. -CXR neg -Blood cx neg 2) History of Peritonitis: from gastric perforation from dislodged PEG with significant ascites -S/P exlap, repair of gastric perforation with wedge gastrectomy, abdominal washout, drain placement on 10/05. 3) History of Candidemia: -Blood cultures positive for Silvia albicans on 09/23 -Blood cultures positive on 09/25 -Blood cultures negative on 09/30 -PICC line changed on 10/03 -Source ? gastric perf (PEG placed on 09/20) +/- TPN +/- central lines -TTE 10/07 no vegetations -PICC exchanged on 10/03 -fully treated with micafungin for 14 days last day 10/13 4) History CA-UTI s/p gutierrez exchanged 5) Diarrhea - ? etiology ? antibiotic-induced, not better. Multiple Cdiff negative 6) Initial presumed aspiration pneumonia 7) Respiratory failure s/p trach 8) Recent CVA-left MCA CVA 9) Uncontrolled HTN 10) Acute on CKD 11) Extensive back skin peeling ? burn from gastric secretions. Doubt allergic reaction - resolved 12) Severe anemia; ? from GI bleed 13) Recent abdominal wall abscess at surgical site-treated Plan: -no need for broad spectrum antibiotics at this time -exchange gutierrez cath, check UA -remove PICC line -monitor temperature and leukocytosis Thank you Dr Ribeiro for your consultation, will follow up with you. Pauline Carias MD Infectious Diseases Specialist [facility] ([facility]) M [phone] O [phone] Subjective Date of service: 11/23/16 Principal diagnosis: Acute resp failure on MVS; S/P Acute CVA; Acute Encephalopathy; JUANITA Interval history: Interval history: Noted low grade fever on 11/21 and 11/22. Remains on the vent via trach. S/P recent code on 11/21 and was transiently on pressors. Microbiology: Blood cultures: 09/13 neg 09/23 Silvia albicans 09/25 Silvia 09/29 neg 10/07 neg 11/05 neg 11/07 ngtd 11/22 ngtd Urine cultures: 09/10 neg 09/13 neg 09/23 10-100K mixed species 10/07 neg 11/05 VRE 11/07 mixed bacteria Respiratory cultures: 09/07 neg 09/13 neg 09/23 neg 11/07 MDR Pseudomonas 11/21 tracheal + Enterococcus Wound cultures: 10/17 abd wall wound purulence + Pseudomonas MDR Stool cultures: cath tip 11/07 + [employer] Current Antimicrobials: none Previous Antimicrobials: Zosyn 10/07 Vancomycin PO 10/01 Metronidazole 09/25 Micafungin 09/27-10/13 Meropenem 10/10 Vanco 10/17 zosyn 10/21 Cefepime 11/10 vancomyin 11/07 fluconazole 10/19 cefepime 10/29levaquin 11/05 Objective - Exam Narrative Exam: General appearance: somnolent, non communicative, on the vent via trach no following commands Eyes: anicteric sclera, moist conjunctivae; PERRLA HENT: Atraumatic; oropharynx limited; Normal external ears. +NGT with greenish secretion Neck: +trach in place; supple, no thyromegaly or lymphadenopathy Lungs: CTA CV: tachycardic Abdomen: Soft, non-tender, +old PEG site no drainage. +iliostomy. Right sided Surgical site x 2 with ostomy bag draining large amount yellowish secretion Extremities: +peripheral edema no extremity lymphadenopathy Skin: sacral area wounds superficial no purulence Psych: somnolent . Neuro: alert non verbal on the vent. Lines: left arm PICC placed on 10/03 - Constitutional Vitals: Vital Signs Temp Pulse Resp BP Pulse Ox 98.6 F 90 17 143/95 100 11/23/16 08:00 11/23/16 09:14 11/23/16 08:15 11/23/16 09:14 11/23/16 08:15 Temperature -Last 24 Hours Temperature 98.6 F Temperature 99.9 F Temperature 100.6 F Temperature 99.3 F Temperature 98.3 F Temperature 98.3 F Temperature 98.5 F - Labs CBC & Chem 7: 11/23/16 04:06 11/23/16 04:06 Labs: Abnormal lab results 11/22/16 11/23/16 11/23/16 Range/Units 05:00 03:44 04:06 RBC 2.52 L (3.65-5.03) M/mm3 Hgb 7.2 L (10.1-14.3) gm/dl Hct 21.5 L (30.3-42.9) % RDW 17.1 H (13.2-15.2) % [place] % (Auto) 12.4 H (0.0-7.3) % [place] # 1.4 H (0.0-0.8) K/mm3 Lymphocytes % (Manual) 7.0 L (13.4-35.0) % Seg Neutrophils # Man 15.4 H (1.8-7.7) K/mm3 POC ABG pH 7.493 H (7.35-7.45) POC ABG pCO2 29.5 L (35-45) POC ABG pO2 49 L (80-105) Sodium (137-145) mmol/L Chloride (98-107) mmol/L BUN (7-17) mg/dL Creatinine (0.7-1.2) mg/dL Magnesium (1.7-2.3) mg/dL 11/23/16 Range/Units 04:06 RBC (3.65-5.03) M/mm3 Hgb (10.1-14.3) gm/dl Hct (30.3-42.9) % RDW (13.2-15.2) % [place] % (Auto) (0.0-7.3) % [place] # (0.0-0.8) K/mm3 Lymphocytes % (Manual) (13.4-35.0) % Seg Neutrophils # Man (1.8-7.7) K/mm3 POC ABG pH (7.35-7.45) POC ABG pCO2 (35-45) POC ABG pO2 (80-105) Sodium 136 L (137-145) mmol/L Chloride 95.2 L (98-107) mmol/L BUN 60 H (7-17) mg/dL Creatinine 2.9 H (0.7-1.2) mg/dL Magnesium 1.60 L (1.7-2.3) mg/dL
[2016-11-23] MEDS: QUESTRAN PO SCH (10:00)
--- NOTE | 2016-11-23 10:00 | Progress Note ---
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 shift * Acute hypoxic respiratory failure * Left renal artery stenosis * Metabolic acidosis - improved * Anemia * Hyponatremia - multifactorial * tachycardia Plan: * hemodialysis only if hemodynamically stable * added bicarb gtt * monitor for renal recovery * vasopressors--titrate to map 65 * Rate control per cardiology * Dose medications for renal function * Avoid potential nephrotoxins Subjective Date of service: 11/23/16 Principal diagnosis: Acute resp failure on MVS; S/P Acute CVA; Acute Encephalopathy; JUANITA Interval history: new events from last pm noted Objective - Exam Narrative Exam: Gen. appearance: Patient lying in bed, no apparent distress, 4. restraints HEENT: Normocephalic, atraumatic, pupils equally round and reactive to light, extraocular movement intact, and no sclericterus,. No JVD or thyromegaly or nodule,neck supple, no carotid bruit ,mucous membranes moist, unable to examine oral cavity Heart: S1, S2, regular rate and rhythm Lungs: Clear to auscultation bilaterally, breathing comfortable Abdomen: Positive bowel sounds, nontender, nondistended, no organomegaly Extremity: No edema, cyanosis, clubbing Skin: No rash, nodules, warm, dry Neuro: Difficult to assess, facial droop, moves all 4 extremities - Vital Signs Vital signs: Vital Signs - 12hr 11/22/16 11/22/16 11/22/16 22:15 22:31 22:45 Temperature Pulse Rate 123 H 127 H 132 H Pulse Rate [ From Monitor] Respiratory 18 20 12 Rate Blood Pressure 159/95 166/110 166/110 O2 Sat by Pulse 100 98 Oximetry O2 Sat by Pulse Oximetry [ Assessment] 11/22/16 11/22/16 11/22/16 23:00 23:15 23:30 Temperature Pulse Rate 127 H 116 H Pulse Rate [ From Monitor] Respiratory 21 20 Rate Blood Pressure 175/94 164/85 O2 Sat by Pulse 94 96 Oximetry O2 Sat by Pulse 99 Oximetry [ Assessment] 11/22/16 11/22/16 11/22/16 23:31 23:43 23:45 Temperature 100.6 F H Pulse Rate 123 H 124 H Pulse Rate [ From Monitor] Respiratory 18 10 L Rate Blood Pressure 193/119 193/119 O2 Sat by Pulse 95 95 Oximetry O2 Sat by Pulse Oximetry [ Assessment] 11/23/16 11/23/16 11/23/16 00:00 00:15 00:31 Temperature Pulse Rate 112 H 117 H 106 H Pulse Rate [ From Monitor] Respiratory 20 17 20 Rate Blood Pressure 130/79 130/79 130/79 O2 Sat by Pulse 100 97 98 Oximetry O2 Sat by Pulse Oximetry [ Assessment] 11/23/16 11/23/16 11/23/16 00:45 01:00 01:15 Temperature Pulse Rate 109 H 108 H 107 H Pulse Rate [ From Monitor] Respiratory 20 20 20 Rate Blood Pressure 130/79 116/75 116/75 O2 Sat by Pulse 99 99 100 Oximetry O2 Sat by Pulse Oximetry [ Assessment] 11/23/16 11/23/16 11/23/16 01:31 01:45 02:00 Temperature Pulse Rate 98 H 96 H 104 H Pulse Rate [ From Monitor] Respiratory 20 20 20 Rate Blood Pressure 116/75 116/75 126/87 O2 Sat by Pulse 100 100 100 Oximetry O2 Sat by Pulse Oximetry [ Assessment] 11/23/16 11/23/16 11/23/16 02:15 02:31 02:45 Temperature Pulse Rate 113 H 104 H 108 H Pulse Rate [ From Monitor] Respiratory 20 20 20 Rate Blood Pressure 126/87 116/75 116/75 O2 Sat by Pulse 100 100 100 Oximetry O2 Sat by Pulse Oximetry [ Assessment] 11/23/16 11/23/16 11/23/16 03:00 03:15 03:30 Temperature Pulse Rate 103 H 107 H 87 Pulse Rate [ From Monitor] Respiratory 21 20 Rate Blood Pressure 137/85 137/85 120/70 O2 Sat by Pulse 100 100 Oximetry O2 Sat by Pulse Oximetry [ Assessment] 11/23/16 11/23/16 11/23/16 03:31 03:45 03:46 Temperature Pulse Rate 117 H 116 H 109 H Pulse Rate [ From Monitor] Respiratory 18 20 Rate Blood Pressure 137/85 137/85 137/85 O2 Sat by Pulse 99 98 100 Oximetry O2 Sat by Pulse Oximetry [ Assessment] 11/23/16 11/23/16 11/23/16 04:00 04:15 04:31 Temperature 99.9 F H Pulse Rate 110 H 109 H 94 H Pulse Rate [ From Monitor] Respiratory 18 15 18 Rate Blood Pressure 143/87 143/87 143/87 O2 Sat by Pulse 100 100 100 Oximetry O2 Sat by Pulse Oximetry [ Assessment] 11/23/16 11/23/16 11/23/16 04:45 05:00 05:15 Temperature Pulse Rate 99 H 96 H 91 H Pulse Rate [ From Monitor] Respiratory 17 18 18 Rate Blood Pressure 143/87 140/82 140/82 O2 Sat by Pulse 100 100 100 Oximetry O2 Sat by Pulse Oximetry [ Assessment] 11/23/16 11/23/16 11/23/16 05:31 05:45 06:00 Temperature Pulse Rate 90 89 98 H Pulse Rate [ From Monitor] Respiratory 18 18 18 Rate Blood Pressure 143/87 143/87 156/89 O2 Sat by Pulse 100 100 100 Oximetry O2 Sat by Pulse Oximetry [ Assessment] 11/23/16 11/23/16 11/23/16 06:15 06:31 06:45 Temperature Pulse Rate 87 111 H 99 H Pulse Rate [ From Monitor] Respiratory 18 8 L 18 Rate Blood Pressure 156/89 156/89 156/89 O2 Sat by Pulse 100 94 100 Oximetry O2 Sat by Pulse Oximetry [ Assessment] 11/23/16 11/23/16 11/23/16 07:00 07:15 07:31 Temperature Pulse Rate 97 H 108 H 94 H Pulse Rate [ 104 H From Monitor] Respiratory 17 18 14 Rate Blood Pressure 142/88 142/88 142/88 O2 Sat by Pulse 100 100 100 Oximetry O2 Sat by Pulse Oximetry [ Assessment] 11/23/16 11/23/16 11/23/16 07:45 08:00 08:15 Temperature 98.6 F Pulse Rate 87 88 93 H Pulse Rate [ From Monitor] Respiratory 18 18 17 Rate Blood Pressure 142/88 141/88 141/88 O2 Sat by Pulse 100 100 100 Oximetry O2 Sat by Pulse Oximetry [ Assessment] 11/23/16 09:14 Temperature Pulse Rate 90 Pulse Rate [ From Monitor] Respiratory Rate Blood Pressure 143/95 O2 Sat by Pulse Oximetry O2 Sat by Pulse Oximetry [ Assessment] - Lab 11/23/16 04:06 11/23/16 04:06 Most recent lab results Calcium 8.5 mg/dL (8.4-10.2) 11/23/16 04:06 Phosphorus 4.00 mg/dL (2.5-4.5) 11/23/16 04:06 Magnesium 1.60 mg/dL (1.7-2.3) L 11/23/16 04:06 Urine Creatinine 19.7 mg/dL (0.1-20.0) 11/12/16 10:18 Urine Sodium 36 mEq/L 09/16/16 19:19 Urine Total Protein 16 mg/dL (5-11.8) H 09/16/16 19:19
--- NOTE | 2016-11-23 11:13 | Progress Note ---
Assessment and Plan Patient is 46-year-old woman with a history of hypertension, diabetes, asthma, hyperlipidemia, chronic kidney disease and anxiety , who was brought in by family because, she couldn't get her words out, her face was also twisted, she was admitted for acute CVA and accelerated hypertension, she had a hx of poor adherence with her medications, and uncontrolled htn. Patient's SBP on admission was noted be greater than 260. TPA was started but this was discontinued after 5 minutes because her blood pressure became uncontrolled. The TPA was not initiated again because the patient was outside the TPA window. Status post cardiac arrest yesterday, 11/21 Received CPR and attained ROSC, vitals stable, glucose stable, chest x-ray improving, labs stable -Most likely related to aspiration as cardiac arrest happened shortly after the patient had emesis Fever She continues to have fevers. ID Physician was following but has signed off. Re-consult ID Physician. I discussed case with her Catheter site was growing multiple organisms, and she had completed Antibiotics s/p R thoracentesis on 11/14, 240cc of serous fluid removed, cx of fluid was negative Stool negative for C. difficile -Severe Sepsis with septic shock, recurrent. Patient with multiple episodes of sepsis. Initial episode due to presumed aspiration pneumonia and septic episode on 09/23 from candidemia then a third episode from peritonitis from gastric perforation from dislodged PEG , there was an abscess in the abdomen present at that time that was draining pus. +/-UTI. The latest episode was related to surgical site infection. Antibiotics discontinued Surgical wound infection/gram-negative sepsis/candidemia/peritonitis PEG has been removed She will need to be on tube feeds through NG tube for a month, and then either a gastrostomy or jejunostomy tube replaced after her GI wounds have healed and infection is cleared -continue wound care to ostomy sites JUANITA, now ESRD Likely due to vasomotor nephropathy and ATN given sepsis Nephrology input appreciated, continue hemodialysis as per Nephrolog Acute CVA with infarct. sp TPA Continue neuro checks. Neurology input appreciated, CT shows continued evolution of left MCA infarct with slight mass effect and edema, and there is no hemorrhage - PRINCE showed hyperdynamic with ef of 75%, neither clot nor septal defect seen - MRA Brain shows near complete occlusion of M2 and M3 of the left MCA - Repeat CT scan done on 09/11, shows stable findings - carotid doppler negative - Echo shows preserved systolic function but does show some left ventricular diastolic dysfunction - continue asa and statin for secondary ppx Persistent vegetative state This patient's needs placement at SNF -She was denied for LTACH Acute hypoxic respiratory failure requiring MV >96hrs Status post tracheostomy, was on T piece now put back on Vent yesterday after cardiac arrest Nosocomial acquired aspiration pneumonia/sepsis/UTI She had completed a course of antibiotics. Asthma/COPD exacerbation Now has trach Acute Toxic Metabolic encephalopathy. Multitifactorial, mostly secondary to evolution of CVA Hypertensive Emergency continue BP meds Bilateral pleural effusion, s/p right thoracentesis 11/14 fluid analysis cw transudate Paroxysmal atrial fibrillation with rapid ventricular rate and hyper-coaguable state , failed cardioversion Continue current medications, Not a candidate for anticoagulation secondary to anemia, thrombocytopenia, and massive CVA Hypokalemia/Hypomagnesemia/hypophosphatemia. Replete electrolytes as needed. magnesium 1.6. Will give 3g magnesium sulfate Diabetes type 2. Continue sliding-scale regular insulin and Accu-Cheks. Hyperlipidemia. Continue statin Nutrition continue tube feeds Anemia requiring multiple transfusions/acute blood loss Has received total 13 units of PRBC this admission. Will continue to transfuse to keep Hemoglobin above 7 Hemoglobin 6.8 today. will transfuse 1 Unit PRBC and recheck tomorrow. Her POA is her Brother, Jam [phone] Hospitalist discussed code status and very poor prognosis with family, but they still want full code status Disposition. Very poor prognosis. Plan is for SNF placement. She was denied by LTAC The high probability of a clinically significant, sudden or life threatening deterioration of the [4] system(s) required my full and direct attention, intervention and personal management. The aggregate critical care time was [32] minutes. This time is in addition to time spent performing reported procedures but includes the following: [x] Data Review and interpretation [x] Patient assessment and monitoring of vital signs [x] Documentation [x] Medication orders and management - Patient Problems (1) Acute respiratory failure with hypoxia Current Visit: Yes Status: Acute Plan to address problem: Continue with mechanical ventilatory support and daily SBTs as tolerated Lung protective strategies -VAP bundle, HOB >40 - SCDs for VTE prophylaxis - Stress ulcer prophylaxis -Bronchodilators- h/o asthma -[place] catheter in this critically ill patient - TPN, accucheck with glycemic control - Agitation management/analgesia - ABGs and CXR PRN -Start ATP trials in the morning as tolerated -Trach care per RT Needs transfer to LTACH and chronic weaning from mechanical ventilatory support (2) Acute blood loss anemia Current Visit: Yes Status: Resolved Plan to address problem: Transfuse for Hgh 7g/dl (3) Acute CVA (cerebrovascular accident) Current Visit: Yes Status: Acute Plan to address problem: CTScan -subacute MCA territory infarct Secondary stroke prophylaxis Neuroprotective measures Aspiration precautions (4) Chronic renal insufficiency Current Visit: Yes Status: Acute Qualifiers: Chronic kidney disease stage: C Plan to address problem: UF/HD per renal service Renal following (5) Uncontrolled hypertension Current Visit: Yes Status: Acute Plan to address problem: Monitor closely and adjust anti-hypertensive medications (6) Leukocytosis (leucocytosis) Current Visit: Yes Status: Acute Qualifiers: Leukocytosis type: leukemoid reaction Qualified Code(s): D72.823 - Leukemoid reaction Plan to address problem: Improving. ID following and monitoring (7) Dislodged gastrostomy tube Current Visit: Yes Status: Acute Plan to address problem: With bowel perforation/peritonitis( resolved) Remains NPO except medications and on TPN for nutritional support. (8) Fungemia Current Visit: Yes Status: Resolved Plan to address problem: Anti-fungal therapy per ID service. (9) Cardiopulmonary arrest with successful resuscitation Current Visit: Yes Status: Acute Subjective Date of service: 11/23/16 Principal diagnosis: Acute resp failure on MVS; S/P Acute CVA; Acute Encephalopathy; JUANITA Interval history: Seen and examined. Vitals, labs, medications, chart reviewed. On mechanical ventilatory support Discussed in interdisciplinary rounds s/p cardiac arrest 3 days ago, resuscitated with ROSC Objective Vital Signs - 12hr 11/22/16 11/22/16 11/22/16 23:15 23:30 23:31 Temperature Pulse Rate 116 H 123 H Pulse Rate [ From Monitor] Respiratory 20 18 Rate Blood Pressure 164/85 193/119 O2 Sat by Pulse 96 95 Oximetry O2 Sat by Pulse 99 Oximetry [ Assessment] 11/22/16 11/22/16 11/23/16 23:43 23:45 00:00 Temperature 100.6 F H Pulse Rate 124 H 112 H Pulse Rate [ From Monitor] Respiratory 10 L 20 Rate Blood Pressure 193/119 130/79 O2 Sat by Pulse 95 100 Oximetry O2 Sat by Pulse Oximetry [ Assessment] 11/23/16 11/23/16 11/23/16 00:15 00:31 00:45 Temperature Pulse Rate 117 H 106 H 109 H Pulse Rate [ From Monitor] Respiratory 17 20 20 Rate Blood Pressure 130/79 130/79 130/79 O2 Sat by Pulse 97 98 99 Oximetry O2 Sat by Pulse Oximetry [ Assessment] 11/23/16 11/23/16 11/23/16 01:00 01:15 01:31 Temperature Pulse Rate 108 H 107 H 98 H Pulse Rate [ From Monitor] Respiratory 20 20 20 Rate Blood Pressure 116/75 116/75 116/75 O2 Sat by Pulse 99 100 100 Oximetry O2 Sat by Pulse Oximetry [ Assessment] 11/23/16 11/23/16 11/23/16 01:45 02:00 02:15 Temperature Pulse Rate 96 H 104 H 113 H Pulse Rate [ From Monitor] Respiratory 20 20 20 Rate Blood Pressure 116/75 126/87 126/87 O2 Sat by Pulse 100 100 100 Oximetry O2 Sat by Pulse Oximetry [ Assessment] 11/23/16 11/23/16 11/23/16 02:31 02:45 03:00 Temperature Pulse Rate 104 H 108 H 103 H Pulse Rate [ From Monitor] Respiratory 20 20 21 Rate Blood Pressure 116/75 116/75 137/85 O2 Sat by Pulse 100 100 100 Oximetry O2 Sat by Pulse Oximetry [ Assessment] 11/23/16 11/23/16 11/23/16 03:15 03:30 03:31 Temperature Pulse Rate 107 H 87 117 H Pulse Rate [ From Monitor] Respiratory 20 18 Rate Blood Pressure 137/85 120/70 137/85 O2 Sat by Pulse 100 99 Oximetry O2 Sat by Pulse Oximetry [ Assessment] 11/23/16 11/23/16 11/23/16 03:45 03:46 04:00 Temperature 99.9 F H Pulse Rate 116 H 109 H 110 H Pulse Rate [ From Monitor] Respiratory 20 18 Rate Blood Pressure 137/85 137/85 143/87 O2 Sat by Pulse 98 100 100 Oximetry O2 Sat by Pulse Oximetry [ Assessment] 11/23/16 11/23/16 11/23/16 04:15 04:31 04:45 Temperature Pulse Rate 109 H 94 H 99 H Pulse Rate [ From Monitor] Respiratory 15 18 17 Rate Blood Pressure 143/87 143/87 143/87 O2 Sat by Pulse 100 100 100 Oximetry O2 Sat by Pulse Oximetry [ Assessment] 11/23/16 11/23/16 11/23/16 05:00 05:15 05:31 Temperature Pulse Rate 96 H 91 H 90 Pulse Rate [ From Monitor] Respiratory 18 18 18 Rate Blood Pressure 140/82 140/82 143/87 O2 Sat by Pulse 100 100 100 Oximetry O2 Sat by Pulse Oximetry [ Assessment] 11/23/16 11/23/16 11/23/16 05:45 06:00 06:15 Temperature Pulse Rate 89 98 H 87 Pulse Rate [ From Monitor] Respiratory 18 18 18 Rate Blood Pressure 143/87 156/89 156/89 O2 Sat by Pulse 100 100 100 Oximetry O2 Sat by Pulse Oximetry [ Assessment] 11/23/16 11/23/16 11/23/16 06:31 06:45 07:00 Temperature Pulse Rate 111 H 99 H 97 H Pulse Rate [ From Monitor] Respiratory 8 L 18 17 Rate Blood Pressure 156/89 156/89 142/88 O2 Sat by Pulse 94 100 100 Oximetry O2 Sat by Pulse Oximetry [ Assessment] 11/23/16 11/23/16 11/23/16 07:15 07:31 07:45 Temperature Pulse Rate 108 H 94 H 87 Pulse Rate [ 104 H From Monitor] Respiratory 18 14 18 Rate Blood Pressure 142/88 142/88 142/88 O2 Sat by Pulse 100 100 100 Oximetry O2 Sat by Pulse Oximetry [ Assessment] 11/23/16 11/23/16 11/23/16 08:00 08:15 08:31 Temperature 98.6 F Pulse Rate 88 93 H 89 Pulse Rate [ From Monitor] Respiratory 18 17 16 Rate Blood Pressure 141/88 141/88 141/88 O2 Sat by Pulse 100 100 100 Oximetry O2 Sat by Pulse Oximetry [ Assessment] 11/23/16 11/23/16 11/23/16 08:45 09:00 09:14 Temperature Pulse Rate 97 H 91 H 90 Pulse Rate [ From Monitor] Respiratory 15 18 Rate Blood Pressure 141/88 143/95 143/95 O2 Sat by Pulse 100 100 Oximetry O2 Sat by Pulse Oximetry [ Assessment] 11/23/16 11/23/16 11/23/16 09:15 09:31 09:45 Temperature Pulse Rate 84 97 H 86 Pulse Rate [ From Monitor] Respiratory 18 16 18 Rate Blood Pressure 143/95 143/95 143/95 O2 Sat by Pulse 100 100 100 Oximetry O2 Sat by Pulse Oximetry [ Assessment] 11/23/16 11/23/16 11/23/16 10:00 10:15 10:31 Temperature Pulse Rate 87 88 92 H Pulse Rate [ From Monitor] Respiratory 18 18 18 Rate Blood Pressure 145/90 145/90 145/90 O2 Sat by Pulse 100 100 100 Oximetry O2 Sat by Pulse Oximetry [ Assessment] Constitutional: no acute distress, other (eyes open; not tracking movements) Eyes: non-icteric, other (tracheostomy tube in midline of neck) ENT: oropharynx moist Neck: supple, no lymphadenopathy Effort: mildly labored Ascultation: Bilateral: clear, diminished breath sounds (bases), rales, rhonchi (and referred upper airway sounds) Cardiovascular: regular rate and rhythm Gastrointestinal: hypoactive bowel sounds, soft, non-tender, non-distended, other (RLQ stomas with colostomy bags) Integumentary: other (healing back burn-like injury) Extremities: no cyanosis, no edema, pulses normal, no ischemia or petechiae Neurologic: pupils equal and round, other (encephalopathic) Psychiatric: other (unable to assess) CBC and BMP: 12/19/16 05:02 12/20/16 07:07 ABG, PT/INR, D-dimer: ABG POC ABG pH 7.493 (7.35-7.45) H 11/23/16 03:44 POC ABG pCO2 29.5 (35-45) L 11/23/16 03:44 POC ABG pO2 49 (80-105) L 11/23/16 03:44 POC ABG HCO3 22.7 11/23/16 03:44 POC ABG Total CO2 24 11/23/16 03:44 POC ABG O2 Sat 88 11/23/16 03:44 PT/INR, D-dimer PT 16.8 Sec. (12.2-14.9) H 11/17/16 03:20 INR 1.37 (0.87-1.13) H 11/17/16 03:20 Abnormal lab findings: Abnormal Labs 09/03/16 09/03/16 09/03/16 12:12 15:07 16:20 WBC RBC Hgb Hct MCV MCH MCHC RDW Plt Count Lymph % (Auto) [place] % (Auto) Lymph # [place] # Baso # Seg Neutrophils % Seg Neuts % (Manual) Lymphocytes % (Manual) Monocytes % (Manual) Eosinophils % (Manual) Basophils % (Manual) Nucleated RBC % Seg Neutrophils # Seg Neutrophils # Man Lymphocytes # (Manual) Monocytes # (Manual) Eosinophils # (Manual) PT INR Fibrinogen dRVVT Confirm Interp Factor V Activity POC ABG pH 7.452 H POC ABG pCO2 POC ABG pO2 Sodium Potassium Chloride Carbon Dioxide BUN Creatinine Glucose POC Glucose 178 H Lactic Acid Calcium Phosphorus 2.20 L Magnesium 1.60 L Direct Bilirubin AST ALT Alkaline Phosphatase Lactate Dehydrogenase Troponin T C-Reactive Protein Total Protein Albumin Prealbumin Triglycerides Cholesterol LDL Cholesterol Direct HDL Cholesterol Urine pH Urine WBC (Auto) Urine Creatinine Urine Total Protein Fluid Total Protein Vancomycin Trough Rheumatoid Factor Complement C4 Miscellaneous Test Crossmatch 09/03/16 09/03/16 09/03/16 17:57 17:58 23:50 WBC RBC Hgb Hct MCV MCH MCHC RDW Plt Count Lymph % (Auto) [place] % (Auto) Lymph # [place] # Baso # Seg Neutrophils % Seg Neuts % (Manual) Lymphocytes % (Manual) Monocytes % (Manual) Eosinophils % (Manual) Basophils % (Manual) Nucleated RBC % Seg Neutrophils # Seg Neutrophils # Man Lymphocytes # (Manual) Monocytes # (Manual) Eosinophils # (Manual) PT INR Fibrinogen dRVVT Confirm Interp Factor V Activity POC ABG pH POC ABG pCO2 POC ABG pO2 Sodium Potassium Chloride Carbon Dioxide BUN Creatinine Glucose POC Glucose 162 H 145 H Lactic Acid Calcium Phosphorus 2.30 L Magnesium Direct Bilirubin AST ALT Alkaline Phosphatase Lactate Dehydrogenase Troponin T C-Reactive Protein Total Protein Albumin Prealbumin Triglycerides Cholesterol LDL Cholesterol Direct HDL Cholesterol Urine pH Urine WBC (Auto) Urine Creatinine Urine Total Protein Fluid Total Protein Vancomycin Trough Rheumatoid Factor Complement C4 Miscellaneous Test Crossmatch 09/04/16 09/04/16 09/04/16 03:31 03:31 05:42 WBC RBC Hgb 9.7 L D Hct MCV 72 L MCH 23 L MCHC RDW 17.5 H Plt Count Lymph % (Auto) 11.1 L [place] % (Auto) Lymph # [place] # Baso # Seg Neutrophils % 84.3 H Seg Neuts % (Manual) Lymphocytes % (Manual) Monocytes % (Manual) Eosinophils % (Manual) Basophils % (Manual) Nucleated RBC % Seg Neutrophils # 8.9 H Seg Neutrophils # Man Lymphocytes # (Manual) Monocytes # (Manual) Eosinophils # (Manual) PT INR Fibrinogen dRVVT Confirm Interp Factor V Activity POC ABG pH POC ABG pCO2 POC ABG pO2 Sodium 135 L Potassium 2.9 L* Chloride 97.2 L Carbon Dioxide 19 L BUN Creatinine 1.7 H Glucose 170 H POC Glucose 152 H Lactic Acid Calcium Phosphorus Magnesium Direct Bilirubin AST ALT Alkaline Phosphatase Lactate Dehydrogenase Troponin T C-Reactive Protein Total Protein Albumin Prealbumin Triglycerides 160 H Cholesterol LDL Cholesterol Direct HDL Cholesterol 31 L Urine pH Urine WBC (Auto) Urine Creatinine Urine Total Protein Fluid Total Protein Vancomycin Trough Rheumatoid Factor Complement C4 Miscellaneous Test Crossmatch 09/04/16 09/04/16 09/04/16 11:34 17:46 23:29 WBC RBC Hgb Hct MCV MCH MCHC RDW Plt Count Lymph % (Auto) [place] % (Auto) Lymph # [place] # Baso # Seg Neutrophils % Seg Neuts % (Manual) Lymphocytes % (Manual) Monocytes % (Manual) Eosinophils % (Manual) Basophils % (Manual) Nucleated RBC % Seg Neutrophils # Seg Neutrophils # Man Lymphocytes # (Manual) Monocytes # (Manual) Eosinophils # (Manual) PT INR Fibrinogen dRVVT Confirm Interp Factor V Activity POC ABG pH POC ABG pCO2 POC ABG pO2 Sodium Potassium Chloride Carbon Dioxide BUN Creatinine Glucose POC Glucose 165 H 210 H 139 H Lactic Acid Calcium Phosphorus Magnesium Direct Bilirubin AST ALT Alkaline Phosphatase Lactate Dehydrogenase Troponin T C-Reactive Protein Total Protein Albumin Prealbumin Triglycerides Cholesterol LDL Cholesterol Direct HDL Cholesterol Urine pH Urine WBC (Auto) Urine Creatinine Urine Total Protein Fluid Total Protein Vancomycin Trough Rheumatoid Factor Complement C4 Miscellaneous Test Crossmatch 09/05/16 09/05/16 09/05/16 04:05 04:05 05:38 WBC RBC Hgb Hct MCV 76 L D MCH 23 L MCHC RDW 17.8 H Plt Count Lymph % (Auto) [place] % (Auto) Lymph # [place] # Baso # Seg Neutrophils % Seg Neuts % (Manual) Lymphocytes % (Manual) Monocytes % (Manual) Eosinophils % (Manual) Basophils % (Manual) Nucleated RBC % Seg Neutrophils # Seg Neutrophils # Man Lymphocytes # (Manual) Monocytes # (Manual) Eosinophils # (Manual) PT INR Fibrinogen dRVVT Confirm Interp Factor V Activity POC ABG pH POC ABG pCO2 POC ABG pO2 Sodium 134 L Potassium Chloride Carbon Dioxide 18 L BUN Creatinine 1.8 H Glucose 192 H POC Glucose 175 H Lactic Acid Calcium Phosphorus Magnesium Direct Bilirubin AST ALT Alkaline Phosphatase Lactate Dehydrogenase Troponin T C-Reactive Protein Total Protein Albumin Prealbumin Triglycerides Cholesterol LDL Cholesterol Direct HDL Cholesterol Urine pH Urine WBC (Auto) Urine Creatinine Urine Total Protein Fluid Total Protein Vancomycin Trough Rheumatoid Factor Complement C4 Miscellaneous Test Crossmatch 09/05/16 09/05/16 09/05/16 11:38 17:48 23:22 WBC RBC Hgb Hct MCV MCH MCHC RDW Plt Count Lymph % (Auto) [place] % (Auto) Lymph # [place] # Baso # Seg Neutrophils % Seg Neuts % (Manual) Lymphocytes % (Manual) Monocytes % (Manual) Eosinophils % (Manual) Basophils % (Manual) Nucleated RBC % Seg Neutrophils # Seg Neutrophils # Man Lymphocytes # (Manual) Monocytes # (Manual) Eosinophils # (Manual) PT INR Fibrinogen dRVVT Confirm Interp Factor V Activity POC ABG pH POC ABG pCO2 POC ABG pO2 Sodium Potassium Chloride Carbon Dioxide BUN Creatinine Glucose POC Glucose 164 H 186 H 195 H Lactic Acid Calcium Phosphorus Magnesium Direct Bilirubin AST ALT Alkaline Phosphatase Lactate Dehydrogenase Troponin T C-Reactive Protein Total Protein Albumin Prealbumin Triglycerides Cholesterol LDL Cholesterol Direct HDL Cholesterol Urine pH Urine WBC (Auto) Urine Creatinine Urine Total Protein Fluid Total Protein Vancomycin Trough Rheumatoid Factor Complement C4 Miscellaneous Test Crossmatch 09/06/16 09/06/16 09/06/16 04:12 05:59 07:32 WBC RBC Hgb Hct MCV MCH MCHC RDW Plt Count Lymph % (Auto) [place] % (Auto) Lymph # [place] # Baso # Seg Neutrophils % Seg Neuts % (Manual) Lymphocytes % (Manual) Monocytes % (Manual) Eosinophils % (Manual) Basophils % (Manual) Nucleated RBC % Seg Neutrophils # Seg Neutrophils # Man Lymphocytes # (Manual) Monocytes # (Manual) Eosinophils # (Manual) PT INR Fibrinogen dRVVT Confirm Interp Factor V Activity POC ABG pH 7.514 H POC ABG pCO2 29.1 L POC ABG pO2 72 L Sodium 133 L Potassium 3.4 L Chloride 94.9 L Carbon Dioxide 19 L BUN 30 H Creatinine 2.1 H Glucose 139 H POC Glucose 146 H Lactic Acid Calcium Phosphorus Magnesium Direct Bilirubin AST ALT Alkaline Phosphatase Lactate Dehydrogenase Troponin T C-Reactive Protein Total Protein Albumin Prealbumin Triglycerides Cholesterol LDL Cholesterol Direct HDL Cholesterol Urine pH Urine WBC (Auto) Urine Creatinine Urine Total Protein Fluid Total Protein Vancomycin Trough Rheumatoid Factor Complement C4 Miscellaneous Test Crossmatch 09/06/16 09/06/16 09/06/16 11:57 17:58 19:02 WBC RBC Hgb Hct MCV MCH MCHC RDW Plt Count Lymph % (Auto) [place] % (Auto) Lymph # [place] # Baso # Seg Neutrophils % Seg Neuts % (Manual) Lymphocytes % (Manual) Monocytes % (Manual) Eosinophils % (Manual) Basophils % (Manual) Nucleated RBC % Seg Neutrophils # Seg Neutrophils # Man Lymphocytes # (Manual) Monocytes # (Manual) Eosinophils # (Manual) PT INR Fibrinogen dRVVT Confirm Interp Factor V Activity POC ABG pH 7.465 H POC ABG pCO2 32.0 L POC ABG pO2 Sodium Potassium Chloride Carbon Dioxide BUN Creatinine Glucose POC Glucose 165 H 160 H Lactic Acid Calcium Phosphorus Magnesium Direct Bilirubin AST ALT Alkaline Phosphatase Lactate Dehydrogenase Troponin T C-Reactive Protein Total Protein Albumin Prealbumin Triglycerides Cholesterol LDL Cholesterol Direct HDL Cholesterol Urine pH Urine WBC (Auto) Urine Creatinine Urine Total Protein Fluid Total Protein Vancomycin Trough Rheumatoid Factor Complement C4 Miscellaneous Test Crossmatch 09/06/16 09/07/16 09/07/16 23:45 02:47 02:47 WBC RBC Hgb Hct MCV MCH MCHC RDW Plt Count Lymph % (Auto) [place] % (Auto) Lymph # [place] # Baso # Seg Neutrophils % Seg Neuts % (Manual) Lymphocytes % (Manual) Monocytes % (Manual) Eosinophils % (Manual) Basophils % (Manual) Nucleated RBC % Seg Neutrophils # Seg Neutrophils # Man Lymphocytes # (Manual) Monocytes # (Manual) Eosinophils # (Manual) PT INR Fibrinogen dRVVT Confirm Interp Factor V Activity POC ABG pH POC ABG pCO2 POC ABG pO2 Sodium Potassium Chloride Carbon Dioxide BUN Creatinine Glucose POC Glucose 204 H Lactic Acid Calcium Phosphorus Magnesium Direct Bilirubin AST ALT Alkaline Phosphatase Lactate Dehydrogenase Troponin T C-Reactive Protein Total Protein Albumin Prealbumin Triglycerides Cholesterol LDL Cholesterol Direct HDL Cholesterol Urine pH Urine WBC (Auto) 68.0 H Urine Creatinine 106.1 H Urine Total Protein Fluid Total Protein Vancomycin Trough Rheumatoid Factor Complement C4 Miscellaneous Test Crossmatch 09/07/16 09/07/16 09/07/16 04:50 06:19 06:39 WBC RBC Hgb Hct MCV MCH MCHC RDW Plt Count Lymph % (Auto) [place] % (Auto) Lymph # [place] # Baso # Seg Neutrophils % Seg Neuts % (Manual) Lymphocytes % (Manual) Monocytes % (Manual) Eosinophils % (Manual) Basophils % (Manual) Nucleated RBC % Seg Neutrophils # Seg Neutrophils # Man Lymphocytes # (Manual) Monocytes # (Manual) Eosinophils # (Manual) PT INR Fibrinogen dRVVT Confirm Interp Factor V Activity POC ABG pH 7.457 H POC ABG pCO2 32.1 L POC ABG pO2 76 L Sodium 132 L Potassium Chloride 94.7 L Carbon Dioxide BUN 53 H Creatinine 2.9 H Glucose 151 H POC Glucose 149 H Lactic Acid Calcium Phosphorus Magnesium Direct Bilirubin AST ALT Alkaline Phosphatase Lactate Dehydrogenase Troponin T C-Reactive Protein Total Protein Albumin Prealbumin Triglycerides Cholesterol LDL Cholesterol Direct HDL Cholesterol Urine pH Urine WBC (Auto) Urine Creatinine Urine Total Protein Fluid Total Protein Vancomycin Trough Rheumatoid Factor Complement C4 Miscellaneous Test Crossmatch 09/07/16 09/07/16 09/07/16 09:20 11:43 11:43 WBC 19.4 H RBC Hgb 8.3 L Hct 26.4 L D MCV 72 L D MCH 22 L MCHC RDW 17.9 H Plt Count Lymph % (Auto) 8.5 L [place] % (Auto) Lymph # [place] # 1.0 H Baso # Seg Neutrophils % 85.8 H Seg Neuts % (Manual) Lymphocytes % (Manual) Monocytes % (Manual) Eosinophils % (Manual) Basophils % (Manual) Nucleated RBC % Seg Neutrophils # 16.6 H Seg Neutrophils # Man Lymphocytes # (Manual) Monocytes # (Manual) Eosinophils # (Manual) PT INR Fibrinogen dRVVT Confirm Interp Factor V Activity POC ABG pH POC ABG pCO2 POC ABG pO2 Sodium 134 L Potassium Chloride 97.2 L Carbon Dioxide 20 L BUN 58 H Creatinine 2.9 H Glucose 147 H POC Glucose Lactic Acid Calcium Phosphorus 2.40 L Magnesium 2.40 H Direct Bilirubin AST ALT Alkaline Phosphatase Lactate Dehydrogenase Troponin T C-Reactive Protein Total Protein 5.8 L Albumin 2.2 L Prealbumin Triglycerides Cholesterol LDL Cholesterol Direct HDL Cholesterol Urine pH Urine WBC (Auto) Urine Creatinine Urine Total Protein Fluid Total Protein Vancomycin Trough Rheumatoid Factor Complement C4 58 H Miscellaneous Test Crossmatch 09/07/16 09/07/16 09/07/16 11:50 16:00 17:31 WBC RBC Hgb Hct MCV MCH MCHC RDW Plt Count Lymph % (Auto) [place] % (Auto) Lymph # [place] # Baso # Seg Neutrophils % Seg Neuts % (Manual) Lymphocytes % (Manual) Monocytes % (Manual) Eosinophils % (Manual) Basophils % (Manual) Nucleated RBC % Seg Neutrophils # Seg Neutrophils # Man Lymphocytes # (Manual) Monocytes # (Manual) Eosinophils # (Manual) PT INR Fibrinogen dRVVT Confirm Interp Factor V Activity POC ABG pH POC ABG pCO2 POC ABG pO2 158 H Sodium Potassium Chloride Carbon Dioxide BUN Creatinine Glucose POC Glucose 175 H Lactic Acid Calcium Phosphorus Magnesium Direct Bilirubin AST ALT Alkaline Phosphatase Lactate Dehydrogenase Troponin T C-Reactive Protein Total Protein Albumin Prealbumin Triglycerides Cholesterol LDL Cholesterol Direct HDL Cholesterol Urine pH Urine WBC (Auto) Urine Creatinine 66.3 H Urine Total Protein Fluid Total Protein Vancomycin Trough Rheumatoid Factor Complement C4 Miscellaneous Test Crossmatch 09/07/16 09/08/16 09/08/16 23:50 05:46 06:18 WBC 17.8 H RBC 3.58 L Hgb 8.1 L Hct 25.5 L MCV 71 L MCH 23 L MCHC RDW 18.4 H Plt Count Lymph % (Auto) [place] % (Auto) Lymph # [place] # Baso # Seg Neutrophils % Seg Neuts % (Manual) 92.0 H Lymphocytes % (Manual) 6.0 L Monocytes % (Manual) Eosinophils % (Manual) Basophils % (Manual) Nucleated RBC % Seg Neutrophils # Seg Neutrophils # Man 16.4 H Lymphocytes # (Manual) 1.1 L Monocytes # (Manual) Eosinophils # (Manual) PT INR Fibrinogen dRVVT Confirm Interp Factor V Activity POC ABG pH POC ABG pCO2 34.3 L POC ABG pO2 71 L Sodium Potassium Chloride Carbon Dioxide BUN Creatinine Glucose POC Glucose 216 H Lactic Acid Calcium Phosphorus Magnesium Direct Bilirubin AST ALT Alkaline Phosphatase Lactate Dehydrogenase Troponin T C-Reactive Protein Total Protein Albumin Prealbumin Triglycerides Cholesterol LDL Cholesterol Direct HDL Cholesterol Urine pH Urine WBC (Auto) Urine Creatinine Urine Total Protein Fluid Total Protein Vancomycin Trough Rheumatoid Factor Complement C4 Miscellaneous Test Crossmatch 09/08/16 09/08/16 09/08/16 06:18 06:51 10:55 WBC RBC Hgb Hct MCV MCH MCHC RDW Plt Count Lymph % (Auto) [place] % (Auto) Lymph # [place] # Baso # Seg Neutrophils % Seg Neuts % (Manual) Lymphocytes % (Manual) Monocytes % (Manual) Eosinophils % (Manual) Basophils % (Manual) Nucleated RBC % Seg Neutrophils # Seg Neutrophils # Man Lymphocytes # (Manual) Monocytes # (Manual) Eosinophils # (Manual) PT INR Fibrinogen dRVVT Confirm Interp Factor V Activity POC ABG pH POC ABG pCO2 POC ABG pO2 Sodium 133 L Potassium Chloride 96.9 L Carbon Dioxide 20 L BUN 63 H Creatinine 2.7 H Glucose 195 H POC Glucose 204 H 169 H Lactic Acid Calcium Phosphorus Magnesium Direct Bilirubin AST ALT Alkaline Phosphatase Lactate Dehydrogenase Troponin T C-Reactive Protein Total Protein Albumin Prealbumin Triglycerides Cholesterol LDL Cholesterol Direct HDL Cholesterol Urine pH Urine WBC (Auto) Urine Creatinine Urine Total Protein Fluid Total Protein Vancomycin Trough Rheumatoid Factor Complement C4 Miscellaneous Test Crossmatch 09/08/16 09/08/16 09/08/16 11:48 11:48 11:48 WBC RBC Hgb Hct MCV MCH MCHC RDW Plt Count Lymph % (Auto) [place] % (Auto) Lymph # [place] # Baso # Seg Neutrophils % Seg Neuts % (Manual) Lymphocytes % (Manual) Monocytes % (Manual) Eosinophils % (Manual) Basophils % (Manual) Nucleated RBC % Seg Neutrophils # Seg Neutrophils # Man Lymphocytes # (Manual) Monocytes # (Manual) Eosinophils # (Manual) PT INR Fibrinogen 750 H dRVVT Confirm Interp Factor V Activity POC ABG pH POC ABG pCO2 POC ABG pO2 Sodium Potassium Chloride Carbon Dioxide BUN Creatinine Glucose POC Glucose Lactic Acid Calcium Phosphorus Magnesium Direct Bilirubin AST ALT Alkaline Phosphatase Lactate Dehydrogenase Troponin T C-Reactive Protein 15.70 H Total Protein Albumin Prealbumin Triglycerides Cholesterol LDL Cholesterol Direct HDL Cholesterol Urine pH Urine WBC (Auto) Urine Creatinine Urine Total Protein Fluid Total Protein Vancomycin Trough Rheumatoid Factor 24 H Complement C4 Miscellaneous Test Crossmatch 09/08/16 09/08/16 09/09/16 15:35 18:25 00:24 WBC RBC Hgb Hct MCV MCH MCHC RDW Plt Count Lymph % (Auto) [place] % (Auto) Lymph # [place] # Baso # Seg Neutrophils % Seg Neuts % (Manual) Lymphocytes % (Manual) Monocytes % (Manual) Eosinophils % (Manual) Basophils % (Manual) Nucleated RBC % Seg Neutrophils # Seg Neutrophils # Man Lymphocytes # (Manual) Monocytes # (Manual) Eosinophils # (Manual) PT INR Fibrinogen dRVVT Confirm Interp Factor V Activity 182 H POC ABG pH POC ABG pCO2 POC ABG pO2 Sodium Potassium Chloride Carbon Dioxide BUN Creatinine Glucose POC Glucose 184 H 216 H Lactic Acid Calcium Phosphorus Magnesium Direct Bilirubin AST ALT Alkaline Phosphatase Lactate Dehydrogenase Troponin T C-Reactive Protein Total Protein Albumin Prealbumin Triglycerides Cholesterol LDL Cholesterol Direct HDL Cholesterol Urine pH Urine WBC (Auto) Urine Creatinine Urine Total Protein Fluid Total Protein Vancomycin Trough Rheumatoid Factor Complement C4 Miscellaneous Test Crossmatch 09/09/16 09/09/16 09/09/16 03:00 03:00 04:04 WBC 27.9 H RBC Hgb 8.7 L Hct 28.1 L MCV 72 L MCH 22 L MCHC RDW 18.4 H Plt Count 485 H Lymph % (Auto) [place] % (Auto) Lymph # [place] # Baso # Seg Neutrophils % Seg Neuts % (Manual) 77.0 H Lymphocytes % (Manual) 9.0 L Monocytes % (Manual) Eosinophils % (Manual) Basophils % (Manual) Nucleated RBC % Seg Neutrophils # Seg Neutrophils # Man 21.5 H Lymphocytes # (Manual) Monocytes # (Manual) 2.0 H Eosinophils # (Manual) PT INR Fibrinogen dRVVT Confirm Interp Factor V Activity POC ABG pH POC ABG pCO2 POC ABG pO2 121 H Sodium 135 L Potassium Chloride 96.3 L Carbon Dioxide 21 L BUN 83 H Creatinine 3.0 H Glucose 135 H POC Glucose Lactic Acid Calcium Phosphorus Magnesium Direct Bilirubin AST ALT Alkaline Phosphatase Lactate Dehydrogenase Troponin T C-Reactive Protein Total Protein Albumin Prealbumin Triglycerides Cholesterol LDL Cholesterol Direct HDL Cholesterol Urine pH Urine WBC (Auto) Urine Creatinine Urine Total Protein Fluid Total Protein Vancomycin Trough Rheumatoid Factor Complement C4 Miscellaneous Test Crossmatch 09/09/16 09/09/16 09/09/16 05:41 11:55 14:13 WBC RBC Hgb Hct MCV MCH MCHC RDW Plt Count Lymph % (Auto) [place] % (Auto) Lymph # [place] # Baso # Seg Neutrophils % Seg Neuts % (Manual) Lymphocytes % (Manual) Monocytes % (Manual) Eosinophils % (Manual) Basophils % (Manual) Nucleated RBC % Seg Neutrophils # Seg Neutrophils # Man Lymphocytes # (Manual) Monocytes # (Manual) Eosinophils # (Manual) PT INR Fibrinogen dRVVT Confirm Interp Factor V Activity POC ABG pH POC ABG pCO2 POC ABG pO2 Sodium Potassium Chloride Carbon Dioxide BUN Creatinine Glucose POC Glucose 155 H 186 H Lactic Acid Calcium Phosphorus Magnesium Direct Bilirubin AST ALT Alkaline Phosphatase Lactate Dehydrogenase Troponin T C-Reactive Protein Total Protein Albumin Prealbumin Triglycerides Cholesterol LDL Cholesterol Direct HDL Cholesterol Urine pH Urine WBC (Auto) 25.0 H Urine Creatinine Urine Total Protein Fluid Total Protein Vancomycin Trough Rheumatoid Factor Complement C4 Miscellaneous Test Crossmatch 09/09/16 09/09/16 09/10/16 17:33 23:13 05:09 WBC RBC Hgb Hct MCV MCH MCHC RDW Plt Count Lymph % (Auto) [place] % (Auto) Lymph # [place] # Baso # Seg Neutrophils % Seg Neuts % (Manual) Lymphocytes % (Manual) Monocytes % (Manual) Eosinophils % (Manual) Basophils % (Manual) Nucleated RBC % Seg Neutrophils # Seg Neutrophils # Man Lymphocytes # (Manual) Monocytes # (Manual) Eosinophils # (Manual) PT INR Fibrinogen dRVVT Confirm Interp Factor V Activity POC ABG pH POC ABG pCO2 POC ABG pO2 74 L Sodium Potassium Chloride Carbon Dioxide BUN Creatinine Glucose POC Glucose 211 H 215 H Lactic Acid Calcium Phosphorus Magnesium Direct Bilirubin AST ALT Alkaline Phosphatase Lactate Dehydrogenase Troponin T C-Reactive Protein Total Protein Albumin Prealbumin Triglycerides Cholesterol LDL Cholesterol Direct HDL Cholesterol Urine pH Urine WBC (Auto) Urine Creatinine Urine Total Protein Fluid Total Protein Vancomycin Trough Rheumatoid Factor Complement C4 Miscellaneous Test Crossmatch 09/10/16 09/10/16 09/10/16 05:17 05:17 11:31 WBC 15.8 H RBC 3.25 L Hgb 7.3 L Hct 22.9 L MCV 71 L MCH 23 L MCHC RDW 18.4 H Plt Count Lymph % (Auto) [place] % (Auto) Lymph # [place] # Baso # Seg Neutrophils % Seg Neuts % (Manual) 91.0 H Lymphocytes % (Manual) 4.0 L Monocytes % (Manual) Eosinophils % (Manual) Basophils % (Manual) Nucleated RBC % Seg Neutrophils # Seg Neutrophils # Man 14.4 H Lymphocytes # (Manual) 0.6 L Monocytes # (Manual) Eosinophils # (Manual) PT INR Fibrinogen dRVVT Confirm Interp Factor V Activity POC ABG pH POC ABG pCO2 POC ABG pO2 Sodium Potassium Chloride Carbon Dioxide 21 L BUN 93 H Creatinine 2.9 H Glucose 146 H POC Glucose 188 H Lactic Acid Calcium 8.1 L Phosphorus Magnesium Direct Bilirubin AST ALT Alkaline Phosphatase Lactate Dehydrogenase Troponin T C-Reactive Protein Total Protein Albumin Prealbumin Triglycerides Cholesterol LDL Cholesterol Direct HDL Cholesterol Urine pH Urine WBC (Auto) Urine Creatinine Urine Total Protein Fluid Total Protein Vancomycin Trough Rheumatoid Factor Complement C4 Miscellaneous Test Crossmatch 09/10/16 09/10/16 09/10/16 13:17 17:20 23:32 WBC RBC Hgb Hct MCV MCH MCHC RDW Plt Count Lymph % (Auto) [place] % (Auto) Lymph # [place] # Baso # Seg Neutrophils % Seg Neuts % (Manual) Lymphocytes % (Manual) Monocytes % (Manual) Eosinophils % (Manual) Basophils % (Manual) Nucleated RBC % Seg Neutrophils # Seg Neutrophils # Man Lymphocytes # (Manual) Monocytes # (Manual) Eosinophils # (Manual) PT INR Fibrinogen dRVVT Confirm Interp Factor V Activity POC ABG pH POC ABG pCO2 POC ABG pO2 Sodium Potassium Chloride Carbon Dioxide BUN Creatinine Glucose POC Glucose 199 H 186 H Lactic Acid Calcium Phosphorus Magnesium Direct Bilirubin AST ALT Alkaline Phosphatase Lactate Dehydrogenase Troponin T C-Reactive Protein Total Protein Albumin Prealbumin Triglycerides Cholesterol LDL Cholesterol Direct HDL Cholesterol Urine pH Urine WBC (Auto) Urine Creatinine Urine Total Protein Fluid Total Protein Vancomycin Trough Rheumatoid Factor Complement C4 Miscellaneous Test Crossmatch See Detail 09/11/16 09/11/16 09/11/16 05:10 05:10 05:17 WBC 28.4 H RBC Hgb 9.2 L Hct 29.3 L D MCV 73 L MCH 23 L MCHC RDW 18.9 H Plt Count 452 H Lymph % (Auto) [place] % (Auto) Lymph # [place] # Baso # Seg Neutrophils % Seg Neuts % (Manual) 89.5 H Lymphocytes % (Manual) 2.0 L Monocytes % (Manual) Eosinophils % (Manual) Basophils % (Manual) Nucleated RBC % Seg Neutrophils # Seg Neutrophils # Man 25.4 H Lymphocytes # (Manual) 0.6 L Monocytes # (Manual) 1.3 H Eosinophils # (Manual) PT INR Fibrinogen dRVVT Confirm Interp Factor V Activity POC ABG pH POC ABG pCO2 POC ABG pO2 Sodium 136 L Potassium Chloride Carbon Dioxide 18 L BUN 107 H Creatinine 2.6 H Glucose 187 H POC Glucose 230 H Lactic Acid Calcium 8.3 L Phosphorus Magnesium Direct Bilirubin AST ALT Alkaline Phosphatase Lactate Dehydrogenase Troponin T C-Reactive Protein Total Protein Albumin Prealbumin Triglycerides Cholesterol LDL Cholesterol Direct HDL Cholesterol Urine pH Urine WBC (Auto) Urine Creatinine Urine Total Protein Fluid Total Protein Vancomycin Trough Rheumatoid Factor Complement C4 Miscellaneous Test Crossmatch 09/11/16 09/11/16 09/11/16 05:55 12:02 17:32 WBC RBC Hgb Hct MCV MCH MCHC RDW Plt Count Lymph % (Auto) [place] % (Auto) Lymph # [place] # Baso # Seg Neutrophils % Seg Neuts % (Manual) Lymphocytes % (Manual) Monocytes % (Manual) Eosinophils % (Manual) Basophils % (Manual) Nucleated RBC % Seg Neutrophils # Seg Neutrophils # Man Lymphocytes # (Manual) Monocytes # (Manual) Eosinophils # (Manual) PT INR Fibrinogen dRVVT Confirm Interp Factor V Activity POC ABG pH POC ABG pCO2 33.8 L POC ABG pO2 Sodium Potassium Chloride Carbon Dioxide BUN Creatinine Glucose POC Glucose 191 H 239 H Lactic Acid Calcium Phosphorus Magnesium Direct Bilirubin AST ALT Alkaline Phosphatase Lactate Dehydrogenase Troponin T C-Reactive Protein Total Protein Albumin Prealbumin Triglycerides Cholesterol LDL Cholesterol Direct HDL Cholesterol Urine pH Urine WBC (Auto) Urine Creatinine Urine Total Protein Fluid Total Protein Vancomycin Trough Rheumatoid Factor Complement C4 Miscellaneous Test Crossmatch 09/11/16 09/12/16 09/12/16 23:52 05:09 05:32 WBC RBC Hgb Hct MCV MCH MCHC RDW Plt Count Lymph % (Auto) [place] % (Auto) Lymph # [place] # Baso # Seg Neutrophils % Seg Neuts % (Manual) Lymphocytes % (Manual) Monocytes % (Manual) Eosinophils % (Manual) Basophils % (Manual) Nucleated RBC % Seg Neutrophils # Seg Neutrophils # Man Lymphocytes # (Manual) Monocytes # (Manual) Eosinophils # (Manual) PT INR Fibrinogen dRVVT Confirm Interp Factor V Activity POC ABG pH POC ABG pCO2 34.6 L POC ABG pO2 Sodium Potassium Chloride Carbon Dioxide BUN Creatinine Glucose POC Glucose 265 H 184 H Lactic Acid Calcium Phosphorus Magnesium Direct Bilirubin AST ALT Alkaline Phosphatase Lactate Dehydrogenase Troponin T C-Reactive Protein Total Protein Albumin Prealbumin Triglycerides Cholesterol LDL Cholesterol Direct HDL Cholesterol Urine pH Urine WBC (Auto) Urine Creatinine Urine Total Protein Fluid Total Protein Vancomycin Trough Rheumatoid Factor Complement C4 Miscellaneous Test Crossmatch 09/12/16 09/12/16 09/12/16 06:45 06:45 07:22 WBC 31.7 H RBC 3.54 L Hgb 8.3 L Hct 25.9 L MCV 73 L MCH 23 L MCHC RDW 18.9 H Plt Count Lymph % (Auto) [place] % (Auto) Lymph # [place] # Baso # Seg Neutrophils % Seg Neuts % (Manual) 88.5 H Lymphocytes % (Manual) 4.5 L Monocytes % (Manual) Eosinophils % (Manual) Basophils % (Manual) Nucleated RBC % Seg Neutrophils # Seg Neutrophils # Man 28.1 H Lymphocytes # (Manual) Monocytes # (Manual) 1.0 H Eosinophils # (Manual) PT INR Fibrinogen dRVVT Confirm Interp Factor V Activity POC ABG pH POC ABG pCO2 POC ABG pO2 Sodium Potassium Chloride Carbon Dioxide 20 L BUN 115 H Creatinine 2.7 H Glucose 165 H POC Glucose Lactic Acid Calcium 8.0 L Phosphorus Magnesium Direct Bilirubin AST ALT Alkaline Phosphatase Lactate Dehydrogenase Troponin T C-Reactive Protein Total Protein Albumin Prealbumin Triglycerides 217 H Cholesterol LDL Cholesterol Direct HDL Cholesterol Urine pH Urine WBC (Auto) Urine Creatinine Urine Total Protein Fluid Total Protein Vancomycin Trough Rheumatoid Factor Complement C4 Miscellaneous Test Crossmatch 09/12/16 09/12/16 09/12/16 07:22 09:59 12:21 WBC RBC Hgb Hct MCV MCH MCHC RDW Plt Count Lymph % (Auto) [place] % (Auto) Lymph # [place] # Baso # Seg Neutrophils % Seg Neuts % (Manual) Lymphocytes % (Manual) Monocytes % (Manual) Eosinophils % (Manual) Basophils % (Manual) Nucleated RBC % Seg Neutrophils # Seg Neutrophils # Man Lymphocytes # (Manual) Monocytes # (Manual) Eosinophils # (Manual) PT INR Fibrinogen dRVVT Confirm Interp Positive H Factor V Activity POC ABG pH POC ABG pCO2 POC ABG pO2 Sodium Potassium Chloride Carbon Dioxide BUN Creatinine Glucose POC Glucose 224 H Lactic Acid Calcium Phosphorus Magnesium Direct Bilirubin AST ALT Alkaline Phosphatase Lactate Dehydrogenase Troponin T C-Reactive Protein 1.70 H Total Protein Albumin Prealbumin Triglycerides Cholesterol LDL Cholesterol Direct HDL Cholesterol Urine pH Urine WBC (Auto) Urine Creatinine Urine Total Protein Fluid Total Protein Vancomycin Trough Rheumatoid Factor Complement C4 Miscellaneous Test Crossmatch 09/12/16 09/12/16 09/13/16 16:51 23:28 04:00 WBC 45.0 H* RBC Hgb 9.4 L Hct MCV 75 L MCH 23 L MCHC RDW 19.0 H Plt Count 470 H Lymph % (Auto) [place] % (Auto) Lymph # [place] # Baso # Seg Neutrophils % Seg Neuts % (Manual) 89.0 H Lymphocytes % (Manual) 5.0 L Monocytes % (Manual) Eosinophils % (Manual) Basophils % (Manual) Nucleated RBC % Seg Neutrophils # Seg Neutrophils # Man 40.1 H Lymphocytes # (Manual) Monocytes # (Manual) Eosinophils # (Manual) PT INR Fibrinogen dRVVT Confirm Interp Factor V Activity POC ABG pH POC ABG pCO2 POC ABG pO2 Sodium Potassium Chloride Carbon Dioxide BUN Creatinine Glucose POC Glucose 169 H 150 H Lactic Acid Calcium Phosphorus Magnesium Direct Bilirubin AST ALT Alkaline Phosphatase Lactate Dehydrogenase Troponin T C-Reactive Protein Total Protein Albumin Prealbumin Triglycerides Cholesterol LDL Cholesterol Direct HDL Cholesterol Urine pH Urine WBC (Auto) Urine Creatinine Urine Total Protein Fluid Total Protein Vancomycin Trough Rheumatoid Factor Complement C4 Miscellaneous Test Crossmatch 09/13/16 09/13/16 09/13/16 04:00 11:26 17:31 WBC RBC Hgb Hct MCV MCH MCHC RDW Plt Count Lymph % (Auto) [place] % (Auto) Lymph # [place] # Baso # Seg Neutrophils % Seg Neuts % (Manual) Lymphocytes % (Manual) Monocytes % (Manual) Eosinophils % (Manual) Basophils % (Manual) Nucleated RBC % Seg Neutrophils # Seg Neutrophils # Man Lymphocytes # (Manual) Monocytes # (Manual) Eosinophils # (Manual) PT INR Fibrinogen dRVVT Confirm Interp Factor V Activity POC ABG pH POC ABG pCO2 POC ABG pO2 Sodium Potassium Chloride Carbon Dioxide 20 L BUN 116 H Creatinine 3.0 H Glucose 172 H POC Glucose 140 H 183 H Lactic Acid Calcium Phosphorus Magnesium Direct Bilirubin AST ALT Alkaline Phosphatase Lactate Dehydrogenase Troponin T C-Reactive Protein Total Protein 6.2 L Albumin 2.9 L Prealbumin Triglycerides Cholesterol LDL Cholesterol Direct HDL Cholesterol Urine pH Urine WBC (Auto) Urine Creatinine Urine Total Protein Fluid Total Protein Vancomycin Trough Rheumatoid Factor Complement C4 Miscellaneous Test Crossmatch 09/13/16 09/14/16 09/14/16 23:23 04:06 04:07 WBC 29.4 H RBC Hgb 8.9 L Hct 27.3 L MCV 75 L MCH 24 L MCHC RDW 19.1 H Plt Count Lymph % (Auto) [place] % (Auto) Lymph # [place] # Baso # Seg Neutrophils % Seg Neuts % (Manual) 84.0 H Lymphocytes % (Manual) 6.0 L Monocytes % (Manual) 9.0 H Eosinophils % (Manual) Basophils % (Manual) Nucleated RBC % Seg Neutrophils # Seg Neutrophils # Man 24.7 H Lymphocytes # (Manual) Monocytes # (Manual) 2.6 H Eosinophils # (Manual) PT INR Fibrinogen dRVVT Confirm Interp Factor V Activity POC ABG pH 7.342 L POC ABG pCO2 POC ABG pO2 116 H Sodium Potassium Chloride Carbon Dioxide BUN Creatinine Glucose POC Glucose 154 H Lactic Acid Calcium Phosphorus Magnesium Direct Bilirubin AST ALT Alkaline Phosphatase Lactate Dehydrogenase Troponin T C-Reactive Protein Total Protein Albumin Prealbumin Triglycerides Cholesterol LDL Cholesterol Direct HDL Cholesterol Urine pH Urine WBC (Auto) Urine Creatinine Urine Total Protein Fluid Total Protein Vancomycin Trough Rheumatoid Factor Complement C4 Miscellaneous Test Crossmatch 09/14/16 09/14/16 09/14/16 04:07 05:29 12:19 WBC RBC Hgb Hct MCV MCH MCHC RDW Plt Count Lymph % (Auto) [place] % (Auto) Lymph # [place] # Baso # Seg Neutrophils % Seg Neuts % (Manual) Lymphocytes % (Manual) Monocytes % (Manual) Eosinophils % (Manual) Basophils % (Manual) Nucleated RBC % Seg Neutrophils # Seg Neutrophils # Man Lymphocytes # (Manual) Monocytes # (Manual) Eosinophils # (Manual) PT INR Fibrinogen dRVVT Confirm Interp Factor V Activity POC ABG pH POC ABG pCO2 POC ABG pO2 Sodium 136 L Potassium Chloride Carbon Dioxide 18 L BUN 121 H Creatinine 2.8 H Glucose 214 H POC Glucose 239 H 181 H Lactic Acid Calcium Phosphorus Magnesium Direct Bilirubin AST ALT Alkaline Phosphatase Lactate Dehydrogenase Troponin T C-Reactive Protein Total Protein Albumin Prealbumin Triglycerides Cholesterol LDL Cholesterol Direct HDL Cholesterol Urine pH Urine WBC (Auto) Urine Creatinine Urine Total Protein Fluid Total Protein Vancomycin Trough Rheumatoid Factor Complement C4 Miscellaneous Test Crossmatch 09/14/16 09/14/16 09/15/16 18:12 23:37 05:00 WBC 26.1 H RBC 3.05 L Hgb 7.2 L Hct 22.9 L MCV 75 L MCH 24 L MCHC RDW 19.0 H Plt Count Lymph % (Auto) [place] % (Auto) Lymph # [place] # Baso # Seg Neutrophils % Seg Neuts % (Manual) Lymphocytes % (Manual) Monocytes % (Manual) Eosinophils % (Manual) Basophils % (Manual) Nucleated RBC % Seg Neutrophils # Seg Neutrophils # Man Lymphocytes # (Manual) Monocytes # (Manual) Eosinophils # (Manual) PT INR Fibrinogen dRVVT Confirm Interp Factor V Activity POC ABG pH POC ABG pCO2 POC ABG pO2 Sodium Potassium Chloride Carbon Dioxide BUN Creatinine Glucose POC Glucose 266 H 154 H Lactic Acid Calcium Phosphorus Magnesium Direct Bilirubin AST ALT Alkaline Phosphatase Lactate Dehydrogenase Troponin T C-Reactive Protein Total Protein Albumin Prealbumin Triglycerides Cholesterol LDL Cholesterol Direct HDL Cholesterol Urine pH Urine WBC (Auto) Urine Creatinine Urine Total Protein Fluid Total Protein Vancomycin Trough Rheumatoid Factor Complement C4 Miscellaneous Test Crossmatch 09/15/16 09/15/16 09/15/16 05:00 05:17 12:45 WBC RBC Hgb Hct MCV MCH MCHC RDW Plt Count Lymph % (Auto) [place] % (Auto) Lymph # [place] # Baso # Seg Neutrophils % Seg Neuts % (Manual) Lymphocytes % (Manual) Monocytes % (Manual) Eosinophils % (Manual) Basophils % (Manual) Nucleated RBC % Seg Neutrophils # Seg Neutrophils # Man Lymphocytes # (Manual) Monocytes # (Manual) Eosinophils # (Manual) PT INR Fibrinogen dRVVT Confirm Interp Factor V Activity POC ABG pH POC ABG pCO2 POC ABG pO2 Sodium Potassium 5.2 H Chloride Carbon Dioxide 18 L BUN 139 H Creatinine 3.7 H Glucose 227 H POC Glucose 226 H 244 H Lactic Acid Calcium 8.3 L Phosphorus Magnesium Direct Bilirubin AST ALT Alkaline Phosphatase Lactate Dehydrogenase Troponin T C-Reactive Protein Total Protein Albumin Prealbumin Triglycerides Cholesterol LDL Cholesterol Direct HDL Cholesterol Urine pH Urine WBC (Auto) Urine Creatinine Urine Total Protein Fluid Total Protein Vancomycin Trough Rheumatoid Factor Complement C4 Miscellaneous Test Crossmatch 09/15/16 09/15/16 09/15/16 14:32 17:33 23:35 WBC RBC Hgb Hct MCV MCH MCHC RDW Plt Count Lymph % (Auto) [place] % (Auto) Lymph # [place] # Baso # Seg Neutrophils % Seg Neuts % (Manual) Lymphocytes % (Manual) Monocytes % (Manual) Eosinophils % (Manual) Basophils % (Manual) Nucleated RBC % Seg Neutrophils # Seg Neutrophils # Man Lymphocytes # (Manual) Monocytes # (Manual) Eosinophils # (Manual) PT INR Fibrinogen dRVVT Confirm Interp Factor V Activity POC ABG pH POC ABG pCO2 27.7 L POC ABG pO2 120 H Sodium Potassium Chloride Carbon Dioxide BUN Creatinine Glucose POC Glucose 232 H 167 H Lactic Acid Calcium Phosphorus Magnesium Direct Bilirubin AST ALT Alkaline Phosphatase Lactate Dehydrogenase Troponin T C-Reactive Protein Total Protein Albumin Prealbumin Triglycerides Cholesterol LDL Cholesterol Direct HDL Cholesterol Urine pH Urine WBC (Auto) Urine Creatinine Urine Total Protein Fluid Total Protein Vancomycin Trough Rheumatoid Factor Complement C4 Miscellaneous Test Crossmatch 09/16/16 09/16/16 09/16/16 03:58 10:27 10:27 WBC 19.0 H RBC 2.77 L Hgb 6.5 L Hct 20.9 L MCV 76 L MCH 23 L MCHC RDW 19.3 H Plt Count Lymph % (Auto) 11.0 L [place] % (Auto) Lymph # [place] # 1.1 H Baso # Seg Neutrophils % 82.5 H Seg Neuts % (Manual) Lymphocytes % (Manual) Monocytes % (Manual) Eosinophils % (Manual) Basophils % (Manual) Nucleated RBC % Seg Neutrophils # 15.7 H Seg Neutrophils # Man Lymphocytes # (Manual) Monocytes # (Manual) Eosinophils # (Manual) PT INR Fibrinogen dRVVT Confirm Interp Factor V Activity POC ABG pH POC ABG pCO2 POC ABG pO2 Sodium Potassium Chloride 109.3 H Carbon Dioxide 18 L BUN 139 H Creatinine 4.1 H Glucose 144 H POC Glucose 146 H Lactic Acid Calcium 8.1 L Phosphorus Magnesium Direct Bilirubin AST ALT Alkaline Phosphatase Lactate Dehydrogenase Troponin T C-Reactive Protein Total Protein Albumin Prealbumin Triglycerides Cholesterol LDL Cholesterol Direct HDL Cholesterol Urine pH Urine WBC (Auto) Urine Creatinine Urine Total Protein Fluid Total Protein Vancomycin Trough Rheumatoid Factor Complement C4 Miscellaneous Test Crossmatch 09/16/16 09/16/16 09/16/16 12:04 12:10 13:55 WBC RBC Hgb Hct MCV MCH MCHC RDW Plt Count Lymph % (Auto) [place] % (Auto) Lymph # [place] # Baso # Seg Neutrophils % Seg Neuts % (Manual) Lymphocytes % (Manual) Monocytes % (Manual) Eosinophils % (Manual) Basophils % (Manual) Nucleated RBC % Seg Neutrophils # Seg Neutrophils # Man Lymphocytes # (Manual) Monocytes # (Manual) Eosinophils # (Manual) PT INR Fibrinogen dRVVT Confirm Interp Factor V Activity POC ABG pH POC ABG pCO2 32.9 L POC ABG pO2 Sodium Potassium Chloride Carbon Dioxide BUN Creatinine Glucose POC Glucose 185 H Lactic Acid Calcium Phosphorus Magnesium Direct Bilirubin AST ALT Alkaline Phosphatase Lactate Dehydrogenase Troponin T C-Reactive Protein Total Protein Albumin Prealbumin Triglycerides Cholesterol LDL Cholesterol Direct HDL Cholesterol Urine pH Urine WBC (Auto) Urine Creatinine Urine Total Protein Fluid Total Protein Vancomycin Trough Rheumatoid Factor Complement C4 Miscellaneous Test Crossmatch See Detail 09/16/16 09/16/16 09/16/16 17:55 19:19 23:48 WBC RBC Hgb Hct MCV MCH MCHC RDW Plt Count Lymph % (Auto) [place] % (Auto) Lymph # [place] # Baso # Seg Neutrophils % Seg Neuts % (Manual) Lymphocytes % (Manual) Monocytes % (Manual) Eosinophils % (Manual) Basophils % (Manual) Nucleated RBC % Seg Neutrophils # Seg Neutrophils # Man Lymphocytes # (Manual) Monocytes # (Manual) Eosinophils # (Manual) PT INR Fibrinogen dRVVT Confirm Interp Factor V Activity POC ABG pH POC ABG pCO2 POC ABG pO2 Sodium Potassium Chloride Carbon Dioxide BUN Creatinine Glucose POC Glucose 222 H 107 H Lactic Acid Calcium Phosphorus Magnesium Direct Bilirubin AST ALT Alkaline Phosphatase Lactate Dehydrogenase Troponin T C-Reactive Protein Total Protein Albumin Prealbumin Triglycerides Cholesterol LDL Cholesterol Direct HDL Cholesterol Urine pH Urine WBC (Auto) Urine Creatinine 47.4 H Urine Total Protein 16 H Fluid Total Protein Vancomycin Trough Rheumatoid Factor Complement C4 Miscellaneous Test Crossmatch 09/17/16 09/17/16 09/17/16 03:45 03:45 04:55 WBC 19.6 H RBC 3.41 L Hgb 8.5 L Hct 26.7 L MCV 78 L MCH 25 L MCHC RDW 19.9 H Plt Count Lymph % (Auto) 9.3 L [place] % (Auto) Lymph # [place] # 1.2 H Baso # Seg Neutrophils % 83.9 H Seg Neuts % (Manual) Lymphocytes % (Manual) Monocytes % (Manual) Eosinophils % (Manual) Basophils % (Manual) Nucleated RBC % Seg Neutrophils # 16.4 H Seg Neutrophils # Man Lymphocytes # (Manual) Monocytes # (Manual) Eosinophils # (Manual) PT INR Fibrinogen dRVVT Confirm Interp Factor V Activity POC ABG pH POC ABG pCO2 POC ABG pO2 Sodium 146 H Potassium 5.1 H Chloride 110.9 H Carbon Dioxide 16 L BUN 146 H Creatinine 4.0 H Glucose 108 H POC Glucose 133 H Lactic Acid Calcium Phosphorus Magnesium 3.00 H Direct Bilirubin AST ALT Alkaline Phosphatase Lactate Dehydrogenase Troponin T C-Reactive Protein Total Protein Albumin Prealbumin Triglycerides Cholesterol LDL Cholesterol Direct HDL Cholesterol Urine pH Urine WBC (Auto) Urine Creatinine Urine Total Protein Fluid Total Protein Vancomycin Trough Rheumatoid Factor Complement C4 Miscellaneous Test Crossmatch 09/17/16 09/17/16 09/17/16 11:15 17:33 23:47 WBC RBC Hgb Hct MCV MCH MCHC RDW Plt Count Lymph % (Auto) [place] % (Auto) Lymph # [place] # Baso # Seg Neutrophils % Seg Neuts % (Manual) Lymphocytes % (Manual) Monocytes % (Manual) Eosinophils % (Manual) Basophils % (Manual) Nucleated RBC % Seg Neutrophils # Seg Neutrophils # Man Lymphocytes # (Manual) Monocytes # (Manual) Eosinophils # (Manual) PT INR Fibrinogen dRVVT Confirm Interp Factor V Activity POC ABG pH POC ABG pCO2 POC ABG pO2 Sodium Potassium Chloride Carbon Dioxide BUN Creatinine Glucose POC Glucose 176 H 246 H 148 H Lactic Acid Calcium Phosphorus Magnesium Direct Bilirubin AST ALT Alkaline Phosphatase Lactate Dehydrogenase Troponin T C-Reactive Protein Total Protein Albumin Prealbumin Triglycerides Cholesterol LDL Cholesterol Direct HDL Cholesterol Urine pH Urine WBC (Auto) Urine Creatinine Urine Total Protein Fluid Total Protein Vancomycin Trough Rheumatoid Factor Complement C4 Miscellaneous Test Crossmatch 09/18/16 09/18/16 09/18/16 05:33 08:31 08:31 WBC 18.0 H RBC 3.17 L Hgb 9.0 L Hct 25.7 L MCV MCH MCHC 35 H RDW 20.4 H Plt Count Lymph % (Auto) [place] % (Auto) Lymph # [place] # Baso # Seg Neutrophils % Seg Neuts % (Manual) Lymphocytes % (Manual) Monocytes % (Manual) Eosinophils % (Manual) Basophils % (Manual) Nucleated RBC % Seg Neutrophils # Seg Neutrophils # Man Lymphocytes # (Manual) Monocytes # (Manual) Eosinophils # (Manual) PT INR Fibrinogen dRVVT Confirm Interp Factor V Activity POC ABG pH POC ABG pCO2 POC ABG pO2 Sodium Potassium Chloride Carbon Dioxide 15 L BUN 124 H Creatinine 3.8 H Glucose POC Glucose 120 H Lactic Acid Calcium 8.1 L Phosphorus Magnesium Direct Bilirubin AST ALT Alkaline Phosphatase Lactate Dehydrogenase Troponin T C-Reactive Protein Total Protein Albumin Prealbumin Triglycerides Cholesterol LDL Cholesterol Direct HDL Cholesterol Urine pH Urine WBC (Auto) Urine Creatinine Urine Total Protein Fluid Total Protein Vancomycin Trough Rheumatoid Factor Complement C4 Miscellaneous Test Crossmatch 09/18/16 09/18/16 09/18/16 12:03 15:34 17:50 WBC RBC Hgb Hct MCV MCH MCHC RDW Plt Count Lymph % (Auto) [place] % (Auto) Lymph # [place] # Baso # Seg Neutrophils % Seg Neuts % (Manual) Lymphocytes % (Manual) Monocytes % (Manual) Eosinophils % (Manual) Basophils % (Manual) Nucleated RBC % Seg Neutrophils # Seg Neutrophils # Man Lymphocytes # (Manual) Monocytes # (Manual) Eosinophils # (Manual) PT INR Fibrinogen dRVVT Confirm Interp Factor V Activity POC ABG pH POC ABG pCO2 25.7 L POC ABG pO2 66 L Sodium Potassium Chloride Carbon Dioxide BUN Creatinine Glucose POC Glucose 156 H 220 H Lactic Acid Calcium Phosphorus Magnesium Direct Bilirubin AST ALT Alkaline Phosphatase Lactate Dehydrogenase Troponin T C-Reactive Protein Total Protein Albumin Prealbumin Triglycerides Cholesterol LDL Cholesterol Direct HDL Cholesterol Urine pH Urine WBC (Auto) Urine Creatinine Urine Total Protein Fluid Total Protein Vancomycin Trough Rheumatoid Factor Complement C4 Miscellaneous Test Crossmatch 09/19/16 09/19/16 09/19/16 06:21 09:50 09:50 WBC 17.1 H RBC 3.49 L Hgb 9.0 L Hct 28.1 L MCV MCH 26 L MCHC RDW 20.8 H Plt Count Lymph % (Auto) 11.5 L [place] % (Auto) 7.5 H Lymph # [place] # 1.3 H Baso # Seg Neutrophils % 79.8 H Seg Neuts % (Manual) Lymphocytes % (Manual) Monocytes % (Manual) Eosinophils % (Manual) Basophils % (Manual) Nucleated RBC % Seg Neutrophils # 13.7 H Seg Neutrophils # Man Lymphocytes # (Manual) Monocytes # (Manual) Eosinophils # (Manual) PT INR Fibrinogen dRVVT Confirm Interp Factor V Activity POC ABG pH POC ABG pCO2 POC ABG pO2 Sodium Potassium Chloride 108.6 H Carbon Dioxide 15 L BUN 125 H Creatinine 4.1 H Glucose 124 H POC Glucose 119 H Lactic Acid Calcium Phosphorus Magnesium Direct Bilirubin AST ALT Alkaline Phosphatase Lactate Dehydrogenase Troponin T C-Reactive Protein Total Protein Albumin Prealbumin Triglycerides Cholesterol LDL Cholesterol Direct HDL Cholesterol Urine pH Urine WBC (Auto) Urine Creatinine Urine Total Protein Fluid Total Protein Vancomycin Trough Rheumatoid Factor Complement C4 Miscellaneous Test Crossmatch 09/19/16 09/19/16 09/19/16 11:25 17:53 23:36 WBC RBC Hgb Hct MCV MCH MCHC RDW Plt Count Lymph % (Auto) [place] % (Auto) Lymph # [place] # Baso # Seg Neutrophils % Seg Neuts % (Manual) Lymphocytes % (Manual) Monocytes % (Manual) Eosinophils % (Manual) Basophils % (Manual) Nucleated RBC % Seg Neutrophils # Seg Neutrophils # Man Lymphocytes # (Manual) Monocytes # (Manual) Eosinophils # (Manual) PT INR Fibrinogen dRVVT Confirm Interp Factor V Activity POC ABG pH POC ABG pCO2 POC ABG pO2 Sodium Potassium Chloride Carbon Dioxide BUN Creatinine Glucose POC Glucose 160 H 245 H 121 H Lactic Acid Calcium Phosphorus Magnesium Direct Bilirubin AST ALT Alkaline Phosphatase Lactate Dehydrogenase Troponin T C-Reactive Protein Total Protein Albumin Prealbumin Triglycerides Cholesterol LDL Cholesterol Direct HDL Cholesterol Urine pH Urine WBC (Auto) Urine Creatinine Urine Total Protein Fluid Total Protein Vancomycin Trough Rheumatoid Factor Complement C4 Miscellaneous Test Crossmatch 09/20/16 09/20/16 09/20/16 04:10 04:10 04:10 WBC 17.0 H RBC 3.21 L Hgb 8.2 L Hct 25.5 L MCV MCH 26 L MCHC RDW 20.9 H Plt Count Lymph % (Auto) [place] % (Auto) Lymph # [place] # Baso # Seg Neutrophils % Seg Neuts % (Manual) Lymphocytes % (Manual) Monocytes % (Manual) Eosinophils % (Manual) Basophils % (Manual) Nucleated RBC % Seg Neutrophils # Seg Neutrophils # Man Lymphocytes # (Manual) Monocytes # (Manual) Eosinophils # (Manual) PT INR Fibrinogen dRVVT Confirm Interp Factor V Activity POC ABG pH POC ABG pCO2 POC ABG pO2 Sodium Potassium Chloride 111.0 H Carbon Dioxide 16 L BUN 129 H Creatinine 3.7 H Glucose 115 H POC Glucose Lactic Acid Calcium 8.2 L Phosphorus Magnesium Direct Bilirubin AST ALT Alkaline Phosphatase Lactate Dehydrogenase Troponin T C-Reactive Protein Total Protein Albumin Prealbumin Triglycerides 243 H Cholesterol LDL Cholesterol Direct HDL Cholesterol Urine pH Urine WBC (Auto) Urine Creatinine Urine Total Protein Fluid Total Protein Vancomycin Trough Rheumatoid Factor Complement C4 Miscellaneous Test Crossmatch 09/20/16 09/20/16 09/20/16 05:40 11:52 16:50 WBC RBC Hgb Hct MCV MCH MCHC RDW Plt Count Lymph % (Auto) [place] % (Auto) Lymph # [place] # Baso # Seg Neutrophils % Seg Neuts % (Manual) Lymphocytes % (Manual) Monocytes % (Manual) Eosinophils % (Manual) Basophils % (Manual) Nucleated RBC % Seg Neutrophils # Seg Neutrophils # Man Lymphocytes # (Manual) Monocytes # (Manual) Eosinophils # (Manual) PT INR Fibrinogen dRVVT Confirm Interp Factor V Activity POC ABG pH POC ABG pCO2 POC ABG pO2 Sodium Potassium Chloride Carbon Dioxide BUN Creatinine Glucose POC Glucose 131 H 183 H 236 H Lactic Acid Calcium Phosphorus Magnesium Direct Bilirubin AST ALT Alkaline Phosphatase Lactate Dehydrogenase Troponin T C-Reactive Protein Total Protein Albumin Prealbumin Triglycerides Cholesterol LDL Cholesterol Direct HDL Cholesterol Urine pH Urine WBC (Auto) Urine Creatinine Urine Total Protein Fluid Total Protein Vancomycin Trough Rheumatoid Factor Complement C4 Miscellaneous Test Crossmatch 09/20/16 09/21/16 09/21/16 23:51 03:30 04:44 WBC RBC Hgb Hct MCV MCH MCHC RDW Plt Count Lymph % (Auto) [place] % (Auto) Lymph # [place] # Baso # Seg Neutrophils % Seg Neuts % (Manual) Lymphocytes % (Manual) Monocytes % (Manual) Eosinophils % (Manual) Basophils % (Manual) Nucleated RBC % Seg Neutrophils # Seg Neutrophils # Man Lymphocytes # (Manual) Monocytes # (Manual) Eosinophils # (Manual) PT INR Fibrinogen dRVVT Confirm Interp Factor V Activity POC ABG pH POC ABG pCO2 POC ABG pO2 Sodium Potassium Chloride Carbon Dioxide BUN Creatinine Glucose POC Glucose 114 H 141 H Lactic Acid Calcium Phosphorus Magnesium 2.70 H Direct Bilirubin AST ALT Alkaline Phosphatase Lactate Dehydrogenase Troponin T C-Reactive Protein Total Protein Albumin Prealbumin Triglycerides Cholesterol LDL Cholesterol Direct HDL Cholesterol Urine pH Urine WBC (Auto) Urine Creatinine Urine Total Protein Fluid Total Protein Vancomycin Trough Rheumatoid Factor Complement C4 Miscellaneous Test Crossmatch 09/21/16 09/21/16 09/21/16 07:45 07:45 10:01 WBC 13.8 H RBC 2.94 L Hgb 7.5 L Hct 23.5 L MCV MCH 26 L MCHC RDW 21.2 H Plt Count Lymph % (Auto) 6.9 L [place] % (Auto) 9.4 H Lymph # 0.9 L [place] # 1.3 H Baso # Seg Neutrophils % 83.2 H Seg Neuts % (Manual) Lymphocytes % (Manual) Monocytes % (Manual) Eosinophils % (Manual) Basophils % (Manual) Nucleated RBC % Seg Neutrophils # 11.5 H Seg Neutrophils # Man Lymphocytes # (Manual) Monocytes # (Manual) Eosinophils # (Manual) PT INR Fibrinogen dRVVT Confirm Interp Factor V Activity POC ABG pH 7.308 L POC ABG pCO2 31.9 L POC ABG pO2 148 H Sodium 147 H Potassium Chloride 114.2 H Carbon Dioxide 15 L BUN 120 H Creatinine 3.9 H Glucose 156 H POC Glucose Lactic Acid Calcium 8.2 L Phosphorus Magnesium Direct Bilirubin AST ALT Alkaline Phosphatase Lactate Dehydrogenase Troponin T C-Reactive Protein Total Protein Albumin Prealbumin Triglycerides Cholesterol LDL Cholesterol Direct HDL Cholesterol Urine pH Urine WBC (Auto) Urine Creatinine Urine Total Protein Fluid Total Protein Vancomycin Trough Rheumatoid Factor Complement C4 Miscellaneous Test Crossmatch 09/21/16 09/21/16 09/21/16 12:00 12:03 13:00 WBC RBC Hgb Hct MCV MCH MCHC RDW Plt Count Lymph % (Auto) [place] % (Auto) Lymph # [place] # Baso # Seg Neutrophils % Seg Neuts % (Manual) Lymphocytes % (Manual) Monocytes % (Manual) Eosinophils % (Manual) Basophils % (Manual) Nucleated RBC % Seg Neutrophils # Seg Neutrophils # Man Lymphocytes # (Manual) Monocytes # (Manual) Eosinophils # (Manual) PT INR Fibrinogen dRVVT Confirm Interp Factor V Activity POC ABG pH POC ABG pCO2 POC ABG pO2 Sodium Potassium Chloride Carbon Dioxide BUN Creatinine Glucose POC Glucose 163 H Lactic Acid Calcium Phosphorus Magnesium Direct Bilirubin AST ALT Alkaline Phosphatase Lactate Dehydrogenase Troponin T C-Reactive Protein Total Protein Albumin Prealbumin Triglycerides Cholesterol LDL Cholesterol Direct HDL Cholesterol Urine pH Urine WBC (Auto) Urine Creatinine 54.8 H Urine Total Protein Fluid Total Protein Vancomycin Trough 2.3 L Rheumatoid Factor Complement C4 Miscellaneous Test Crossmatch 09/21/16 09/21/16 09/22/16 16:51 23:17 06:27 WBC RBC Hgb Hct MCV MCH MCHC RDW Plt Count Lymph % (Auto) [place] % (Auto) Lymph # [place] # Baso # Seg Neutrophils % Seg Neuts % (Manual) Lymphocytes % (Manual) Monocytes % (Manual) Eosinophils % (Manual) Basophils % (Manual) Nucleated RBC % Seg Neutrophils # Seg Neutrophils # Man Lymphocytes # (Manual) Monocytes # (Manual) Eosinophils # (Manual) PT INR Fibrinogen dRVVT Confirm Interp Factor V Activity POC ABG pH POC ABG pCO2 POC ABG pO2 Sodium Potassium Chloride Carbon Dioxide BUN Creatinine Glucose POC Glucose 206 H 114 H 115 H Lactic Acid Calcium Phosphorus Magnesium Direct Bilirubin AST ALT Alkaline Phosphatase Lactate Dehydrogenase Troponin T C-Reactive Protein Total Protein Albumin Prealbumin Triglycerides Cholesterol LDL Cholesterol Direct HDL Cholesterol Urine pH Urine WBC (Auto) Urine Creatinine Urine Total Protein Fluid Total Protein Vancomycin Trough Rheumatoid Factor Complement C4 Miscellaneous Test Crossmatch 09/22/16 09/22/16 09/22/16 07:50 07:50 12:00 WBC 17.8 H RBC 3.04 L Hgb 8.0 L Hct 24.7 L MCV MCH 26 L MCHC RDW 21.6 H Plt Count Lymph % (Auto) [place] % (Auto) Lymph # [place] # Baso # Seg Neutrophils % Seg Neuts % (Manual) Lymphocytes % (Manual) Monocytes % (Manual) Eosinophils % (Manual) Basophils % (Manual) Nucleated RBC % Seg Neutrophils # Seg Neutrophils # Man Lymphocytes # (Manual) Monocytes # (Manual) Eosinophils # (Manual) PT INR Fibrinogen dRVVT Confirm Interp Factor V Activity POC ABG pH POC ABG pCO2 POC ABG pO2 Sodium 150 H Potassium Chloride 118.2 H Carbon Dioxide 14 L BUN 111 H Creatinine 3.7 H Glucose 157 H POC Glucose 183 H Lactic Acid Calcium Phosphorus Magnesium Direct Bilirubin AST ALT Alkaline Phosphatase Lactate Dehydrogenase Troponin T C-Reactive Protein Total Protein Albumin Prealbumin Triglycerides Cholesterol LDL Cholesterol Direct HDL Cholesterol Urine pH Urine WBC (Auto) Urine Creatinine Urine Total Protein Fluid Total Protein Vancomycin Trough Rheumatoid Factor Complement C4 Miscellaneous Test Crossmatch 09/22/16 09/22/16 09/23/16 17:29 23:10 05:00 WBC 19.2 H RBC 3.13 L Hgb 8.0 L Hct 25.2 L MCV MCH 26 L MCHC RDW 22.1 H Plt Count Lymph % (Auto) [place] % (Auto) Lymph # [place] # Baso # Seg Neutrophils % Seg Neuts % (Manual) 92.0 H Lymphocytes % (Manual) 3.0 L Monocytes % (Manual) Eosinophils % (Manual) Basophils % (Manual) Nucleated RBC % Seg Neutrophils # Seg Neutrophils # Man 17.7 H Lymphocytes # (Manual) 0.6 L Monocytes # (Manual) Eosinophils # (Manual) PT INR Fibrinogen dRVVT Confirm Interp Factor V Activity POC ABG pH POC ABG pCO2 POC ABG pO2 Sodium Potassium Chloride Carbon Dioxide BUN Creatinine Glucose POC Glucose 197 H 169 H Lactic Acid Calcium Phosphorus Magnesium Direct Bilirubin AST ALT Alkaline Phosphatase Lactate Dehydrogenase Troponin T C-Reactive Protein Total Protein Albumin Prealbumin Triglycerides Cholesterol LDL Cholesterol Direct HDL Cholesterol Urine pH Urine WBC (Auto) Urine Creatinine Urine Total Protein Fluid Total Protein Vancomycin Trough Rheumatoid Factor Complement C4 Miscellaneous Test Crossmatch 09/23/16 09/23/16 09/23/16 05:00 05:00 05:10 WBC RBC Hgb Hct MCV MCH MCHC RDW Plt Count Lymph % (Auto) [place] % (Auto) Lymph # [place] # Baso # Seg Neutrophils % Seg Neuts % (Manual) Lymphocytes % (Manual) Monocytes % (Manual) Eosinophils % (Manual) Basophils % (Manual) Nucleated RBC % Seg Neutrophils # Seg Neutrophils # Man Lymphocytes # (Manual) Monocytes # (Manual) Eosinophils # (Manual) PT INR Fibrinogen dRVVT Confirm Interp Factor V Activity POC ABG pH POC ABG pCO2 POC ABG pO2 Sodium 147 H Potassium 3.2 L Chloride 115.7 H Carbon Dioxide 13 L BUN 111 H Creatinine 3.8 H Glucose 194 H POC Glucose 188 H Lactic Acid Calcium 7.3 L D Phosphorus Magnesium Direct Bilirubin AST ALT Alkaline Phosphatase Lactate Dehydrogenase Troponin T C-Reactive Protein 3.20 H Total Protein Albumin Prealbumin Triglycerides Cholesterol LDL Cholesterol Direct HDL Cholesterol Urine pH Urine WBC (Auto) Urine Creatinine Urine Total Protein Fluid Total Protein Vancomycin Trough Rheumatoid Factor Complement C4 Miscellaneous Test Crossmatch 09/23/16 09/23/16 09/23/16 11:37 12:29 18:01 WBC RBC Hgb Hct MCV MCH MCHC RDW Plt Count Lymph % (Auto) [place] % (Auto) Lymph # [place] # Baso # Seg Neutrophils % Seg Neuts % (Manual) Lymphocytes % (Manual) Monocytes % (Manual) Eosinophils % (Manual) Basophils % (Manual) Nucleated RBC % Seg Neutrophils # Seg Neutrophils # Man Lymphocytes # (Manual) Monocytes # (Manual) Eosinophils # (Manual) PT INR Fibrinogen dRVVT Confirm Interp Factor V Activity POC ABG pH POC ABG pCO2 18.9 L POC ABG pO2 143 H Sodium Potassium Chloride Carbon Dioxide BUN Creatinine Glucose POC Glucose 153 H 108 H Lactic Acid Calcium Phosphorus Magnesium Direct Bilirubin AST ALT Alkaline Phosphatase Lactate Dehydrogenase Troponin T C-Reactive Protein Total Protein Albumin Prealbumin Triglycerides Cholesterol LDL Cholesterol Direct HDL Cholesterol Urine pH Urine WBC (Auto) Urine Creatinine Urine Total Protein Fluid Total Protein Vancomycin Trough Rheumatoid Factor Complement C4 Miscellaneous Test Crossmatch 09/23/16 09/23/16 09/24/16 21:19 23:43 05:16 WBC RBC Hgb Hct MCV MCH MCHC RDW Plt Count Lymph % (Auto) [place] % (Auto) Lymph # [place] # Baso # Seg Neutrophils % Seg Neuts % (Manual) Lymphocytes % (Manual) Monocytes % (Manual) Eosinophils % (Manual) Basophils % (Manual) Nucleated RBC % Seg Neutrophils # Seg Neutrophils # Man Lymphocytes # (Manual) Monocytes # (Manual) Eosinophils # (Manual) PT INR Fibrinogen dRVVT Confirm Interp Factor V Activity POC ABG pH POC ABG pCO2 17.3 L POC ABG pO2 112 H Sodium Potassium Chloride Carbon Dioxide BUN Creatinine Glucose POC Glucose 143 H 164 H Lactic Acid Calcium Phosphorus Magnesium Direct Bilirubin AST ALT Alkaline Phosphatase Lactate Dehydrogenase Troponin T C-Reactive Protein Total Protein Albumin Prealbumin Triglycerides Cholesterol LDL Cholesterol Direct HDL Cholesterol Urine pH Urine WBC (Auto) Urine Creatinine Urine Total Protein Fluid Total Protein Vancomycin Trough Rheumatoid Factor Complement C4 Miscellaneous Test Crossmatch 09/24/16 09/24/16 09/24/16 05:21 11:58 17:06 WBC RBC Hgb Hct MCV MCH MCHC RDW Plt Count Lymph % (Auto) [place] % (Auto) Lymph # [place] # Baso # Seg Neutrophils % Seg Neuts % (Manual) Lymphocytes % (Manual) Monocytes % (Manual) Eosinophils % (Manual) Basophils % (Manual) Nucleated RBC % Seg Neutrophils # Seg Neutrophils # Man Lymphocytes # (Manual) Monocytes # (Manual) Eosinophils # (Manual) PT INR Fibrinogen dRVVT Confirm Interp Factor V Activity POC ABG pH POC ABG pCO2 POC ABG pO2 Sodium Potassium Chloride Carbon Dioxide 10 L BUN 103 H Creatinine 4.3 H Glucose 163 H POC Glucose 173 H 167 H Lactic Acid Calcium 6.5 L Phosphorus Magnesium Direct Bilirubin AST ALT Alkaline Phosphatase Lactate Dehydrogenase Troponin T C-Reactive Protein Total Protein Albumin Prealbumin Triglycerides Cholesterol LDL Cholesterol Direct HDL Cholesterol Urine pH Urine WBC (Auto) Urine Creatinine Urine Total Protein Fluid Total Protein Vancomycin Trough Rheumatoid Factor Complement C4 Miscellaneous Test Crossmatch 09/24/16 09/24/16 09/24/16 20:15 21:02 23:48 WBC RBC Hgb Hct MCV MCH MCHC RDW Plt Count Lymph % (Auto) [place] % (Auto) Lymph # [place] # Baso # Seg Neutrophils % Seg Neuts % (Manual) Lymphocytes % (Manual) Monocytes % (Manual) Eosinophils % (Manual) Basophils % (Manual) Nucleated RBC % Seg Neutrophils # Seg Neutrophils # Man Lymphocytes # (Manual) Monocytes # (Manual) Eosinophils # (Manual) PT INR Fibrinogen dRVVT Confirm Interp Factor V Activity POC ABG pH 7.288 L POC ABG pCO2 30.2 L 21.5 L POC ABG pO2 32 L 39 L Sodium Potassium Chloride Carbon Dioxide BUN Creatinine Glucose POC Glucose 109 H Lactic Acid Calcium Phosphorus Magnesium Direct Bilirubin AST ALT Alkaline Phosphatase Lactate Dehydrogenase Troponin T C-Reactive Protein Total Protein Albumin Prealbumin Triglycerides Cholesterol LDL Cholesterol Direct HDL Cholesterol Urine pH Urine WBC (Auto) Urine Creatinine Urine Total Protein Fluid Total Protein Vancomycin Trough Rheumatoid Factor Complement C4 Miscellaneous Test Crossmatch 09/25/16 09/25/16 09/25/16 04:20 04:20 04:20 WBC RBC 2.58 L Hgb 7.0 L Hct 21.0 L MCV MCH 27 L MCHC RDW 23.8 H Plt Count Lymph % (Auto) [place] % (Auto) Lymph # [place] # Baso # Seg Neutrophils % Seg Neuts % (Manual) Lymphocytes % (Manual) 12.0 L Monocytes % (Manual) Eosinophils % (Manual) 7.0 H Basophils % (Manual) 2.0 H Nucleated RBC % Seg Neutrophils # Seg Neutrophils # Man Lymphocytes # (Manual) 0.9 L Monocytes # (Manual) Eosinophils # (Manual) 0.5 H PT INR Fibrinogen dRVVT Confirm Interp Factor V Activity POC ABG pH POC ABG pCO2 POC ABG pO2 Sodium Potassium Chloride Carbon Dioxide 15 L BUN 72 H Creatinine 3.8 H Glucose POC Glucose Lactic Acid Calcium 6.0 L Phosphorus 4.60 H Magnesium 1.60 L Direct Bilirubin AST ALT Alkaline Phosphatase Lactate Dehydrogenase Troponin T C-Reactive Protein Total Protein Albumin Prealbumin Triglycerides Cholesterol LDL Cholesterol Direct HDL Cholesterol Urine pH Urine WBC (Auto) Urine Creatinine Urine Total Protein Fluid Total Protein Vancomycin Trough Rheumatoid Factor Complement C4 Miscellaneous Test Crossmatch 09/25/16 09/25/16 09/25/16 04:57 08:02 10:30 WBC RBC Hgb Hct MCV MCH MCHC RDW Plt Count Lymph % (Auto) [place] % (Auto) Lymph # [place] # Baso # Seg Neutrophils % Seg Neuts % (Manual) Lymphocytes % (Manual) Monocytes % (Manual) Eosinophils % (Manual) Basophils % (Manual) Nucleated RBC % Seg Neutrophils # Seg Neutrophils # Man Lymphocytes # (Manual) Monocytes # (Manual) Eosinophils # (Manual) PT INR Fibrinogen dRVVT Confirm Interp Factor V Activity POC ABG pH POC ABG pCO2 24.7 L POC ABG pO2 152 H Sodium Potassium Chloride Carbon Dioxide BUN Creatinine Glucose POC Glucose 113 H Lactic Acid Calcium Phosphorus Magnesium Direct Bilirubin AST ALT Alkaline Phosphatase Lactate Dehydrogenase Troponin T C-Reactive Protein Total Protein Albumin Prealbumin Triglycerides Cholesterol LDL Cholesterol Direct HDL Cholesterol Urine pH Urine WBC (Auto) Urine Creatinine Urine Total Protein Fluid Total Protein Vancomycin Trough Rheumatoid Factor Complement C4 Miscellaneous Test Crossmatch See Detail 09/25/16 09/25/16 09/25/16 12:05 17:44 23:47 WBC RBC Hgb Hct MCV MCH MCHC RDW Plt Count Lymph % (Auto) [place] % (Auto) Lymph # [place] # Baso # Seg Neutrophils % Seg Neuts % (Manual) Lymphocytes % (Manual) Monocytes % (Manual) Eosinophils % (Manual) Basophils % (Manual) Nucleated RBC % Seg Neutrophils # Seg Neutrophils # Man Lymphocytes # (Manual) Monocytes # (Manual) Eosinophils # (Manual) PT INR Fibrinogen dRVVT Confirm Interp Factor V Activity POC ABG pH POC ABG pCO2 POC ABG pO2 Sodium Potassium Chloride Carbon Dioxide BUN Creatinine Glucose POC Glucose 117 H 119 H 150 H Lactic Acid Calcium Phosphorus Magnesium Direct Bilirubin AST ALT Alkaline Phosphatase Lactate Dehydrogenase Troponin T C-Reactive Protein Total Protein Albumin Prealbumin Triglycerides Cholesterol LDL Cholesterol Direct HDL Cholesterol Urine pH Urine WBC (Auto) Urine Creatinine Urine Total Protein Fluid Total Protein Vancomycin Trough Rheumatoid Factor Complement C4 Miscellaneous Test Crossmatch 09/26/16 09/26/16 09/26/16 04:25 04:25 04:25 WBC RBC 2.65 L Hgb 7.4 L Hct 21.6 L MCV MCH MCHC RDW 22.5 H Plt Count Lymph % (Auto) [place] % (Auto) Lymph # [place] # Baso # Seg Neutrophils % Seg Neuts % (Manual) Lymphocytes % (Manual) 6.0 L Monocytes % (Manual) Eosinophils % (Manual) 11.0 H Basophils % (Manual) Nucleated RBC % Seg Neutrophils # Seg Neutrophils # Man Lymphocytes # (Manual) 0.4 L Monocytes # (Manual) Eosinophils # (Manual) 0.6 H PT INR Fibrinogen dRVVT Confirm Interp Factor V Activity POC ABG pH POC ABG pCO2 POC ABG pO2 Sodium Potassium Chloride 97.0 L Carbon Dioxide 19 L BUN 43 H Creatinine 2.6 H Glucose 130 H POC Glucose Lactic Acid 4.40 H* Calcium 6.7 L Phosphorus Magnesium Direct Bilirubin AST ALT Alkaline Phosphatase Lactate Dehydrogenase Troponin T C-Reactive Protein Total Protein Albumin Prealbumin Triglycerides Cholesterol LDL Cholesterol Direct HDL Cholesterol Urine pH Urine WBC (Auto) Urine Creatinine Urine Total Protein Fluid Total Protein Vancomycin Trough Rheumatoid Factor Complement C4 Miscellaneous Test Crossmatch 09/26/16 09/26/16 09/26/16 05:20 11:44 12:12 WBC RBC Hgb Hct MCV MCH MCHC RDW Plt Count Lymph % (Auto) [place] % (Auto) Lymph # [place] # Baso # Seg Neutrophils % Seg Neuts % (Manual) Lymphocytes % (Manual) Monocytes % (Manual) Eosinophils % (Manual) Basophils % (Manual) Nucleated RBC % Seg Neutrophils # Seg Neutrophils # Man Lymphocytes # (Manual) Monocytes # (Manual) Eosinophils # (Manual) PT INR Fibrinogen dRVVT Confirm Interp Factor V Activity POC ABG pH POC ABG pCO2 27.0 L POC ABG pO2 69 L Sodium Potassium Chloride Carbon Dioxide BUN Creatinine Glucose POC Glucose 121 H 128 H Lactic Acid Calcium Phosphorus Magnesium Direct Bilirubin AST ALT Alkaline Phosphatase Lactate Dehydrogenase Troponin T C-Reactive Protein Total Protein Albumin Prealbumin Triglycerides Cholesterol LDL Cholesterol Direct HDL Cholesterol Urine pH Urine WBC (Auto) Urine Creatinine Urine Total Protein Fluid Total Protein Vancomycin Trough Rheumatoid Factor Complement C4 Miscellaneous Test Crossmatch 09/26/16 09/26/16 09/27/16 18:31 23:40 08:20 WBC RBC Hgb Hct MCV MCH MCHC RDW Plt Count Lymph % (Auto) [place] % (Auto) Lymph # [place] # Baso # Seg Neutrophils % Seg Neuts % (Manual) Lymphocytes % (Manual) Monocytes % (Manual) Eosinophils % (Manual) Basophils % (Manual) Nucleated RBC % Seg Neutrophils # Seg Neutrophils # Man Lymphocytes # (Manual) Monocytes # (Manual) Eosinophils # (Manual) PT INR Fibrinogen dRVVT Confirm Interp Factor V Activity POC ABG pH POC ABG pCO2 POC ABG pO2 Sodium Potassium Chloride Carbon Dioxide BUN Creatinine Glucose POC Glucose 120 H 133 H Lactic Acid 4.10 H* Calcium Phosphorus Magnesium Direct Bilirubin AST ALT Alkaline Phosphatase Lactate Dehydrogenase Troponin T C-Reactive Protein Total Protein Albumin Prealbumin Triglycerides Cholesterol LDL Cholesterol Direct HDL Cholesterol Urine pH Urine WBC (Auto) Urine Creatinine Urine Total Protein Fluid Total Protein Vancomycin Trough Rheumatoid Factor Complement C4 Miscellaneous Test Crossmatch 09/27/16 09/27/16 09/27/16 11:23 15:00 18:15 WBC RBC Hgb Hct MCV MCH MCHC RDW Plt Count Lymph % (Auto) [place] % (Auto) Lymph # [place] # Baso # Seg Neutrophils % Seg Neuts % (Manual) Lymphocytes % (Manual) Monocytes % (Manual) Eosinophils % (Manual) Basophils % (Manual) Nucleated RBC % Seg Neutrophils # Seg Neutrophils # Man Lymphocytes # (Manual) Monocytes # (Manual) Eosinophils # (Manual) PT INR Fibrinogen dRVVT Confirm Interp Factor V Activity POC ABG pH 7.459 H POC ABG pCO2 27.1 L POC ABG pO2 140 H Sodium Potassium Chloride Carbon Dioxide BUN Creatinine Glucose POC Glucose 114 H 127 H Lactic Acid Calcium Phosphorus Magnesium Direct Bilirubin AST ALT Alkaline Phosphatase Lactate Dehydrogenase Troponin T C-Reactive Protein Total Protein Albumin Prealbumin Triglycerides Cholesterol LDL Cholesterol Direct HDL Cholesterol Urine pH Urine WBC (Auto) Urine Creatinine Urine Total Protein Fluid Total Protein Vancomycin Trough Rheumatoid Factor Complement C4 Miscellaneous Test Crossmatch 09/27/16 09/27/16 09/28/16 Unknown Unknown 03:45 WBC RBC 2.49 L Hgb 6.8 L Hct 20.7 L MCV MCH 27 L MCHC RDW 22.1 H Plt Count Lymph % (Auto) [place] % (Auto) Lymph # [place] # Baso # Seg Neutrophils % Seg Neuts % (Manual) 32.0 L Lymphocytes % (Manual) 12.0 L Monocytes % (Manual) 11.0 H Eosinophils % (Manual) 10.0 H Basophils % (Manual) Nucleated RBC % Seg Neutrophils # Seg Neutrophils # Man Lymphocytes # (Manual) 1.0 L Monocytes # (Manual) 0.9 H Eosinophils # (Manual) 0.8 H PT INR Fibrinogen dRVVT Confirm Interp Factor V Activity POC ABG pH POC ABG pCO2 POC ABG pO2 Sodium 135 L 135 L Potassium 3.5 L Chloride 93.6 L 94.4 L Carbon Dioxide 17 L 21 L BUN 45 H 28 H Creatinine 3.3 H 2.5 H Glucose 106 H POC Glucose Lactic Acid Calcium 7.3 L 7.1 L Phosphorus Magnesium Direct Bilirubin AST ALT Alkaline Phosphatase Lactate Dehydrogenase Troponin T C-Reactive Protein Total Protein Albumin Prealbumin Triglycerides Cholesterol LDL Cholesterol Direct HDL Cholesterol Urine pH Urine WBC (Auto) Urine Creatinine Urine Total Protein Fluid Total Protein Vancomycin Trough Rheumatoid Factor Complement C4 Miscellaneous Test Crossmatch 09/28/16 09/28/16 09/28/16 03:45 07:25 11:58 WBC 13.3 H RBC 3.01 L Hgb 8.4 L Hct 25.0 L MCV MCH MCHC RDW 20.5 H Plt Count 128 L Lymph % (Auto) [place] % (Auto) Lymph # [place] # Baso # Seg Neutrophils % Seg Neuts % (Manual) Lymphocytes % (Manual) 7.0 L Monocytes % (Manual) Eosinophils % (Manual) 6.0 H Basophils % (Manual) Nucleated RBC % Seg Neutrophils # Seg Neutrophils # Man Lymphocytes # (Manual) 0.9 L Monocytes # (Manual) Eosinophils # (Manual) 0.8 H PT INR Fibrinogen dRVVT Confirm Interp Factor V Activity POC ABG pH POC ABG pCO2 POC ABG pO2 Sodium Potassium Chloride Carbon Dioxide BUN Creatinine Glucose POC Glucose 121 H Lactic Acid 4.50 H* Calcium Phosphorus Magnesium Direct Bilirubin AST ALT Alkaline Phosphatase Lactate Dehydrogenase Troponin T C-Reactive Protein Total Protein Albumin Prealbumin Triglycerides Cholesterol LDL Cholesterol Direct HDL Cholesterol Urine pH Urine WBC (Auto) Urine Creatinine Urine Total Protein Fluid Total Protein Vancomycin Trough Rheumatoid Factor Complement C4 Miscellaneous Test Crossmatch 09/29/16 09/29/16 09/29/16 06:45 06:45 06:45 WBC 14.9 H RBC 2.74 L Hgb 7.6 L Hct 23.2 L MCV MCH MCHC RDW 20.5 H Plt Count 81 L Lymph % (Auto) [place] % (Auto) Lymph # [place] # Baso # Seg Neutrophils % Seg Neuts % (Manual) 81.0 H Lymphocytes % (Manual) 4.0 L Monocytes % (Manual) Eosinophils % (Manual) Basophils % (Manual) Nucleated RBC % Seg Neutrophils # Seg Neutrophils # Man 12.1 H Lymphocytes # (Manual) 0.6 L Monocytes # (Manual) Eosinophils # (Manual) PT INR Fibrinogen dRVVT Confirm Interp Factor V Activity POC ABG pH POC ABG pCO2 POC ABG pO2 Sodium 133 L Potassium 3.4 L Chloride 92.5 L Carbon Dioxide 21 L BUN 33 H Creatinine 3.0 H Glucose POC Glucose Lactic Acid Calcium 6.6 L Phosphorus Magnesium 1.40 L Direct Bilirubin 0.9 H AST ALT Alkaline Phosphatase Lactate Dehydrogenase Troponin T C-Reactive Protein Total Protein 4.3 L Albumin 1.3 L Prealbumin Triglycerides Cholesterol LDL Cholesterol Direct HDL Cholesterol Urine pH Urine WBC (Auto) Urine Creatinine Urine Total Protein Fluid Total Protein Vancomycin Trough Rheumatoid Factor Complement C4 Miscellaneous Test Crossmatch 09/29/16 09/29/16 09/30/16 17:52 20:12 00:07 WBC RBC Hgb Hct MCV MCH MCHC RDW Plt Count Lymph % (Auto) [place] % (Auto) Lymph # [place] # Baso # Seg Neutrophils % Seg Neuts % (Manual) Lymphocytes % (Manual) Monocytes % (Manual) Eosinophils % (Manual) Basophils % (Manual) Nucleated RBC % Seg Neutrophils # Seg Neutrophils # Man Lymphocytes # (Manual) Monocytes # (Manual) Eosinophils # (Manual) PT INR Fibrinogen dRVVT Confirm Interp Factor V Activity POC ABG pH POC ABG pCO2 POC ABG pO2 Sodium Potassium Chloride Carbon Dioxide BUN Creatinine Glucose POC Glucose 50 L 51 L Lactic Acid Calcium Phosphorus Magnesium Direct Bilirubin AST ALT Alkaline Phosphatase Lactate Dehydrogenase Troponin T 0.204 H* C-Reactive Protein Total Protein Albumin Prealbumin Triglycerides Cholesterol 31 L LDL Cholesterol Direct 4 L HDL Cholesterol 3 L Urine pH Urine WBC (Auto) Urine Creatinine Urine Total Protein Fluid Total Protein Vancomycin Trough Rheumatoid Factor Complement C4 Miscellaneous Test Crossmatch 09/30/16 09/30/16 09/30/16 01:30 05:15 06:10 WBC RBC Hgb Hct MCV MCH MCHC RDW Plt Count Lymph % (Auto) [place] % (Auto) Lymph # [place] # Baso # Seg Neutrophils % Seg Neuts % (Manual) Lymphocytes % (Manual) Monocytes % (Manual) Eosinophils % (Manual) Basophils % (Manual) Nucleated RBC % Seg Neutrophils # Seg Neutrophils # Man Lymphocytes # (Manual) Monocytes # (Manual) Eosinophils # (Manual) PT INR Fibrinogen dRVVT Confirm Interp Factor V Activity POC ABG pH POC ABG pCO2 POC ABG pO2 Sodium 133 L Potassium 3.2 L Chloride 93.2 L Carbon Dioxide 19 L BUN 36 H Creatinine 3.2 H Glucose 104 H POC Glucose 167 H 146 H Lactic Acid Calcium 6.4 L Phosphorus Magnesium 1.60 L Direct Bilirubin AST ALT Alkaline Phosphatase Lactate Dehydrogenase Troponin T C-Reactive Protein Total Protein Albumin Prealbumin Triglycerides Cholesterol LDL Cholesterol Direct HDL Cholesterol Urine pH Urine WBC (Auto) Urine Creatinine Urine Total Protein Fluid Total Protein Vancomycin Trough Rheumatoid Factor Complement C4 Miscellaneous Test Crossmatch 09/30/16 09/30/16 09/30/16 11:26 13:39 18:38 WBC RBC Hgb Hct MCV MCH MCHC RDW Plt Count Lymph % (Auto) [place] % (Auto) Lymph # [place] # Baso # Seg Neutrophils % Seg Neuts % (Manual) Lymphocytes % (Manual) Monocytes % (Manual) Eosinophils % (Manual) Basophils % (Manual) Nucleated RBC % Seg Neutrophils # Seg Neutrophils # Man Lymphocytes # (Manual) Monocytes # (Manual) Eosinophils # (Manual) PT INR Fibrinogen dRVVT Confirm Interp Factor V Activity POC ABG pH 7.479 H POC ABG pCO2 29.8 L POC ABG pO2 117 H Sodium Potassium Chloride Carbon Dioxide BUN Creatinine Glucose POC Glucose 140 H 122 H Lactic Acid Calcium Phosphorus Magnesium Direct Bilirubin AST ALT Alkaline Phosphatase Lactate Dehydrogenase Troponin T C-Reactive Protein Total Protein Albumin Prealbumin Triglycerides Cholesterol LDL Cholesterol Direct HDL Cholesterol Urine pH Urine WBC (Auto) Urine Creatinine Urine Total Protein Fluid Total Protein Vancomycin Trough Rheumatoid Factor Complement C4 Miscellaneous Test Crossmatch 10/01/16 10/01/16 10/01/16 06:00 06:00 12:37 WBC 12.6 H RBC 2.75 L Hgb 7.3 L Hct 23.3 L MCV MCH 27 L MCHC RDW 20.6 H Plt Count 72 L Lymph % (Auto) [place] % (Auto) Lymph # [place] # Baso # Seg Neutrophils % Seg Neuts % (Manual) 31.0 L Lymphocytes % (Manual) 8.0 L Monocytes % (Manual) Eosinophils % (Manual) Basophils % (Manual) Nucleated RBC % 3.0 H Seg Neutrophils # Seg Neutrophils # Man Lymphocytes # (Manual) 1.0 L Monocytes # (Manual) Eosinophils # (Manual) PT INR Fibrinogen dRVVT Confirm Interp Factor V Activity POC ABG pH POC ABG pCO2 POC ABG pO2 Sodium 127 L Potassium Chloride 86.8 L Carbon Dioxide 20 L BUN 42 H Creatinine 3.5 H Glucose POC Glucose 65 L Lactic Acid Calcium 7.0 L Phosphorus Magnesium Direct Bilirubin AST ALT Alkaline Phosphatase Lactate Dehydrogenase Troponin T C-Reactive Protein Total Protein Albumin Prealbumin Triglycerides Cholesterol LDL Cholesterol Direct HDL Cholesterol Urine pH Urine WBC (Auto) Urine Creatinine Urine Total Protein Fluid Total Protein Vancomycin Trough Rheumatoid Factor Complement C4 Miscellaneous Test Crossmatch 10/01/16 10/01/16 10/02/16 17:39 23:32 00:59 WBC RBC Hgb Hct MCV MCH MCHC RDW Plt Count Lymph % (Auto) [place] % (Auto) Lymph # [place] # Baso # Seg Neutrophils % Seg Neuts % (Manual) Lymphocytes % (Manual) Monocytes % (Manual) Eosinophils % (Manual) Basophils % (Manual) Nucleated RBC % Seg Neutrophils # Seg Neutrophils # Man Lymphocytes # (Manual) Monocytes # (Manual) Eosinophils # (Manual) PT INR Fibrinogen dRVVT Confirm Interp Factor V Activity POC ABG pH POC ABG pCO2 POC ABG pO2 Sodium Potassium Chloride Carbon Dioxide BUN Creatinine Glucose POC Glucose 107 H 52 L 145 H Lactic Acid Calcium Phosphorus Magnesium Direct Bilirubin AST ALT Alkaline Phosphatase Lactate Dehydrogenase Troponin T C-Reactive Protein Total Protein Albumin Prealbumin Triglycerides Cholesterol LDL Cholesterol Direct HDL Cholesterol Urine pH Urine WBC (Auto) Urine Creatinine Urine Total Protein Fluid Total Protein Vancomycin Trough Rheumatoid Factor Complement C4 Miscellaneous Test Crossmatch 08/13/17 08/13/17 08/13/17 10:30 10:50 10:50 WBC 14.7 H RBC 2.76 L Hgb 7.4 L Hct 23.6 L MCV MCH 27 L MCHC RDW 20.2 H Plt Count 79 L Lymph % (Auto) [place] % (Auto) Lymph # [place] # Baso # Seg Neutrophils % Seg Neuts % (Manual) 86.0 H Lymphocytes % (Manual) 6.0 L Monocytes % (Manual) Eosinophils % (Manual) Basophils % (Manual) Nucleated RBC % Seg Neutrophils # Seg Neutrophils # Man 12.6 H Lymphocytes # (Manual) 0.9 L Monocytes # (Manual) Eosinophils # (Manual) PT INR Fibrinogen dRVVT Confirm Interp Factor V Activity POC ABG pH 7.486 H POC ABG pCO2 30.1 L POC ABG pO2 108 H Sodium 131 L Potassium 3.4 L Chloride 89.9 L Carbon Dioxide BUN 26 H Creatinine 2.6 H Glucose POC Glucose Lactic Acid Calcium 7.0 L Phosphorus Magnesium Direct Bilirubin AST ALT Alkaline Phosphatase Lactate Dehydrogenase Troponin T C-Reactive Protein Total Protein Albumin Prealbumin Triglycerides Cholesterol LDL Cholesterol Direct HDL Cholesterol Urine pH Urine WBC (Auto) Urine Creatinine Urine Total Protein Fluid Total Protein Vancomycin Trough Rheumatoid Factor Complement C4 Miscellaneous Test Crossmatch 10/02/16 10/03/16 10/03/16 23:45 00:45 05:10 WBC 12.9 H RBC 2.77 L Hgb 7.6 L Hct 23.7 L MCV MCH 27 L MCHC RDW 19.7 H Plt Count 89 L Lymph % (Auto) [place] % (Auto) Lymph # [place] # Baso # Seg Neutrophils % Seg Neuts % (Manual) Lymphocytes % (Manual) 8.0 L Monocytes % (Manual) Eosinophils % (Manual) Basophils % (Manual) Nucleated RBC % Seg Neutrophils # 11.9 H Seg Neutrophils # Man Lymphocytes # (Manual) 1.0 L Monocytes # (Manual) Eosinophils # (Manual) PT INR Fibrinogen dRVVT Confirm Interp Factor V Activity POC ABG pH POC ABG pCO2 POC ABG pO2 Sodium Potassium Chloride Carbon Dioxide BUN Creatinine Glucose POC Glucose 55 L 199 H Lactic Acid Calcium Phosphorus Magnesium Direct Bilirubin AST ALT Alkaline Phosphatase Lactate Dehydrogenase Troponin T C-Reactive Protein Total Protein Albumin Prealbumin Triglycerides Cholesterol LDL Cholesterol Direct HDL Cholesterol Urine pH Urine WBC (Auto) Urine Creatinine Urine Total Protein Fluid Total Protein Vancomycin Trough Rheumatoid Factor Complement C4 Miscellaneous Test Crossmatch 10/03/16 10/03/16 10/03/16 05:10 12:14 13:18 WBC RBC Hgb Hct MCV MCH MCHC RDW Plt Count Lymph % (Auto) [place] % (Auto) Lymph # [place] # Baso # Seg Neutrophils % Seg Neuts % (Manual) Lymphocytes % (Manual) Monocytes % (Manual) Eosinophils % (Manual) Basophils % (Manual) Nucleated RBC % Seg Neutrophils # Seg Neutrophils # Man Lymphocytes # (Manual) Monocytes # (Manual) Eosinophils # (Manual) PT INR Fibrinogen dRVVT Confirm Interp Factor V Activity POC ABG pH POC ABG pCO2 POC ABG pO2 Sodium 129 L Potassium 3.3 L Chloride 88.8 L Carbon Dioxide 20 L BUN 29 H Creatinine 2.8 H Glucose POC Glucose 68 L 127 H Lactic Acid Calcium 7.2 L Phosphorus Magnesium Direct Bilirubin AST ALT Alkaline Phosphatase Lactate Dehydrogenase Troponin T C-Reactive Protein Total Protein Albumin Prealbumin Triglycerides Cholesterol LDL Cholesterol Direct HDL Cholesterol Urine pH Urine WBC (Auto) Urine Creatinine Urine Total Protein Fluid Total Protein Vancomycin Trough Rheumatoid Factor Complement C4 Miscellaneous Test Crossmatch 10/03/16 10/03/16 10/03/16 14:42 18:21 19:09 WBC RBC Hgb Hct MCV MCH MCHC RDW Plt Count Lymph % (Auto) [place] % (Auto) Lymph # [place] # Baso # Seg Neutrophils % Seg Neuts % (Manual) Lymphocytes % (Manual) Monocytes % (Manual) Eosinophils % (Manual) Basophils % (Manual) Nucleated RBC % Seg Neutrophils # Seg Neutrophils # Man Lymphocytes # (Manual) Monocytes # (Manual) Eosinophils # (Manual) PT INR Fibrinogen dRVVT Confirm Interp Factor V Activity POC ABG pH 7.499 H POC ABG pCO2 28.4 L POC ABG pO2 44 L Sodium Potassium Chloride Carbon Dioxide BUN Creatinine Glucose POC Glucose 64 L 205 H Lactic Acid Calcium Phosphorus Magnesium Direct Bilirubin AST ALT Alkaline Phosphatase Lactate Dehydrogenase Troponin T C-Reactive Protein Total Protein Albumin Prealbumin Triglycerides Cholesterol LDL Cholesterol Direct HDL Cholesterol Urine pH Urine WBC (Auto) Urine Creatinine Urine Total Protein Fluid Total Protein Vancomycin Trough Rheumatoid Factor Complement C4 Miscellaneous Test Crossmatch 10/03/16 10/04/16 10/04/16 23:33 04:18 06:30 WBC RBC 2.54 L Hgb 7.1 L Hct 21.7 L MCV MCH MCHC RDW 19.5 H Plt Count 76 L Lymph % (Auto) [place] % (Auto) Lymph # [place] # Baso # Seg Neutrophils % Seg Neuts % (Manual) 88.0 H Lymphocytes % (Manual) 6.0 L Monocytes % (Manual) Eosinophils % (Manual) Basophils % (Manual) Nucleated RBC % Seg Neutrophils # Seg Neutrophils # Man 8.8 H Lymphocytes # (Manual) 0.6 L Monocytes # (Manual) Eosinophils # (Manual) PT INR Fibrinogen dRVVT Confirm Interp Factor V Activity POC ABG pH 7.461 H POC ABG pCO2 33.6 L POC ABG pO2 211 H Sodium Potassium Chloride Carbon Dioxide BUN Creatinine Glucose POC Glucose 136 H Lactic Acid Calcium Phosphorus Magnesium Direct Bilirubin AST ALT Alkaline Phosphatase Lactate Dehydrogenase Troponin T C-Reactive Protein Total Protein Albumin Prealbumin Triglycerides Cholesterol LDL Cholesterol Direct HDL Cholesterol Urine pH Urine WBC (Auto) Urine Creatinine Urine Total Protein Fluid Total Protein Vancomycin Trough Rheumatoid Factor Complement C4 Miscellaneous Test Crossmatch 10/04/16 10/04/16 10/04/16 06:30 11:45 17:54 WBC RBC Hgb Hct MCV MCH MCHC RDW Plt Count Lymph % (Auto) [place] % (Auto) Lymph # [place] # Baso # Seg Neutrophils % Seg Neuts % (Manual) Lymphocytes % (Manual) Monocytes % (Manual) Eosinophils % (Manual) Basophils % (Manual) Nucleated RBC % Seg Neutrophils # Seg Neutrophils # Man Lymphocytes # (Manual) Monocytes # (Manual) Eosinophils # (Manual) PT INR Fibrinogen dRVVT Confirm Interp Factor V Activity POC ABG pH POC ABG pCO2 POC ABG pO2 Sodium 128 L Potassium Chloride 87.4 L Carbon Dioxide 20 L BUN 34 H Creatinine 2.9 H Glucose 127 H POC Glucose 158 H 160 H Lactic Acid Calcium 7.4 L Phosphorus Magnesium Direct Bilirubin AST ALT Alkaline Phosphatase Lactate Dehydrogenase Troponin T C-Reactive Protein Total Protein Albumin Prealbumin Triglycerides Cholesterol LDL Cholesterol Direct HDL Cholesterol Urine pH Urine WBC (Auto) Urine Creatinine Urine Total Protein Fluid Total Protein Vancomycin Trough Rheumatoid Factor Complement C4 Miscellaneous Test Crossmatch 10/04/16 10/05/16 10/05/16 23:25 04:30 05:00 WBC RBC 2.64 L Hgb 7.5 L Hct 22.6 L MCV MCH MCHC RDW 19.3 H Plt Count 80 L Lymph % (Auto) [place] % (Auto) Lymph # [place] # Baso # Seg Neutrophils % Seg Neuts % (Manual) Lymphocytes % (Manual) 12.0 L Monocytes % (Manual) Eosinophils % (Manual) Basophils % (Manual) Nucleated RBC % Seg Neutrophils # Seg Neutrophils # Man Lymphocytes # (Manual) Monocytes # (Manual) Eosinophils # (Manual) PT INR Fibrinogen dRVVT Confirm Interp Factor V Activity POC ABG pH 7.475 H POC ABG pCO2 33.3 L POC ABG pO2 140 H Sodium Potassium Chloride Carbon Dioxide BUN Creatinine Glucose POC Glucose 141 H Lactic Acid Calcium Phosphorus Magnesium Direct Bilirubin AST ALT Alkaline Phosphatase Lactate Dehydrogenase Troponin T C-Reactive Protein Total Protein Albumin Prealbumin Triglycerides Cholesterol LDL Cholesterol Direct HDL Cholesterol Urine pH Urine WBC (Auto) Urine Creatinine Urine Total Protein Fluid Total Protein Vancomycin Trough Rheumatoid Factor Complement C4 Miscellaneous Test Crossmatch 10/05/16 10/05/16 10/05/16 05:00 05:09 12:58 WBC RBC Hgb Hct MCV MCH MCHC RDW Plt Count Lymph % (Auto) [place] % (Auto) Lymph # [place] # Baso # Seg Neutrophils % Seg Neuts % (Manual) Lymphocytes % (Manual) Monocytes % (Manual) Eosinophils % (Manual) Basophils % (Manual) Nucleated RBC % Seg Neutrophils # Seg Neutrophils # Man Lymphocytes # (Manual) Monocytes # (Manual) Eosinophils # (Manual) PT INR Fibrinogen dRVVT Confirm Interp Factor V Activity POC ABG pH POC ABG pCO2 POC ABG pO2 Sodium 131 L Potassium Chloride 94.0 L Carbon Dioxide 20 L BUN 22 H Creatinine 2.0 H Glucose 123 H POC Glucose 166 H 179 H Lactic Acid Calcium 7.7 L Phosphorus 2.20 L D Magnesium Direct Bilirubin AST ALT Alkaline Phosphatase Lactate Dehydrogenase Troponin T C-Reactive Protein Total Protein Albumin Prealbumin Triglycerides Cholesterol LDL Cholesterol Direct HDL Cholesterol Urine pH Urine WBC (Auto) Urine Creatinine Urine Total Protein Fluid Total Protein Vancomycin Trough Rheumatoid Factor Complement C4 Miscellaneous Test Crossmatch 10/05/16 10/05/16 10/05/16 15:50 18:53 23:12 WBC RBC Hgb Hct MCV MCH MCHC RDW Plt Count Lymph % (Auto) [place] % (Auto) Lymph # [place] # Baso # Seg Neutrophils % Seg Neuts % (Manual) Lymphocytes % (Manual) Monocytes % (Manual) Eosinophils % (Manual) Basophils % (Manual) Nucleated RBC % Seg Neutrophils # Seg Neutrophils # Man Lymphocytes # (Manual) Monocytes # (Manual) Eosinophils # (Manual) PT INR Fibrinogen dRVVT Confirm Interp Factor V Activity POC ABG pH POC ABG pCO2 POC ABG pO2 Sodium Potassium Chloride Carbon Dioxide BUN Creatinine Glucose POC Glucose 150 H 164 H Lactic Acid Calcium Phosphorus Magnesium Direct Bilirubin AST ALT Alkaline Phosphatase Lactate Dehydrogenase Troponin T C-Reactive Protein Total Protein Albumin Prealbumin Triglycerides Cholesterol LDL Cholesterol Direct HDL Cholesterol Urine pH Urine WBC (Auto) Urine Creatinine Urine Total Protein Fluid Total Protein Vancomycin Trough Rheumatoid Factor Complement C4 Miscellaneous Test Crossmatch See Detail 10/06/16 10/06/16 10/06/16 03:50 03:50 04:53 WBC RBC 3.00 L Hgb 8.6 L Hct 25.8 L MCV MCH MCHC RDW 17.9 H Plt Count 65 L Lymph % (Auto) [place] % (Auto) Lymph # [place] # Baso # Seg Neutrophils % Seg Neuts % (Manual) 30.0 L Lymphocytes % (Manual) 5.0 L Monocytes % (Manual) Eosinophils % (Manual) Basophils % (Manual) Nucleated RBC % Seg Neutrophils # Seg Neutrophils # Man Lymphocytes # (Manual) 0.4 L Monocytes # (Manual) Eosinophils # (Manual) PT INR Fibrinogen dRVVT Confirm Interp Factor V Activity POC ABG pH 7.310 L POC ABG pCO2 49.0 H POC ABG pO2 Sodium 133 L Potassium Chloride 95.9 L Carbon Dioxide BUN 26 H Creatinine 2.0 H Glucose 116 H POC Glucose Lactic Acid Calcium 7.8 L Phosphorus Magnesium Direct Bilirubin AST ALT Alkaline Phosphatase Lactate Dehydrogenase Troponin T C-Reactive Protein Total Protein Albumin Prealbumin Triglycerides Cholesterol LDL Cholesterol Direct HDL Cholesterol Urine pH Urine WBC (Auto) Urine Creatinine Urine Total Protein Fluid Total Protein Vancomycin Trough Rheumatoid Factor Complement C4 Miscellaneous Test Crossmatch 10/06/16 10/06/16 10/06/16 05:23 11:52 18:34 WBC RBC Hgb Hct MCV MCH MCHC RDW Plt Count Lymph % (Auto) [place] % (Auto) Lymph # [place] # Baso # Seg Neutrophils % Seg Neuts % (Manual) Lymphocytes % (Manual) Monocytes % (Manual) Eosinophils % (Manual) Basophils % (Manual) Nucleated RBC % Seg Neutrophils # Seg Neutrophils # Man Lymphocytes # (Manual) Monocytes # (Manual) Eosinophils # (Manual) PT INR Fibrinogen dRVVT Confirm Interp Factor V Activity POC ABG pH POC ABG pCO2 POC ABG pO2 Sodium Potassium Chloride Carbon Dioxide BUN Creatinine Glucose POC Glucose 126 H 116 H 129 H Lactic Acid Calcium Phosphorus Magnesium Direct Bilirubin AST ALT Alkaline Phosphatase Lactate Dehydrogenase Troponin T C-Reactive Protein Total Protein Albumin Prealbumin Triglycerides Cholesterol LDL Cholesterol Direct HDL Cholesterol Urine pH Urine WBC (Auto) Urine Creatinine Urine Total Protein Fluid Total Protein Vancomycin Trough Rheumatoid Factor Complement C4 Miscellaneous Test Crossmatch 10/07/16 10/07/16 10/07/16 03:45 05:00 10:00 WBC 17.0 H RBC 2.68 L Hgb 7.3 L Hct 25.3 L MCV MCH 27 L MCHC 29 L RDW 19.6 H Plt Count 74 L Lymph % (Auto) [place] % (Auto) Lymph # [place] # Baso # Seg Neutrophils % Seg Neuts % (Manual) Lymphocytes % (Manual) 12.0 L Monocytes % (Manual) Eosinophils % (Manual) Basophils % (Manual) Nucleated RBC % 4.0 H Seg Neutrophils # Seg Neutrophils # Man 10.7 H Lymphocytes # (Manual) Monocytes # (Manual) Eosinophils # (Manual) PT INR Fibrinogen dRVVT Confirm Interp Factor V Activity POC ABG pH POC ABG pCO2 POC ABG pO2 Sodium 130 L Potassium 3.2 L Chloride 93.9 L Carbon Dioxide 20 L BUN 44 H Creatinine 2.7 H Glucose 129 H POC Glucose Lactic Acid Calcium 7.4 L Phosphorus Magnesium Direct Bilirubin AST ALT 6 L Alkaline Phosphatase 195 H Lactate Dehydrogenase Troponin T C-Reactive Protein Total Protein 4.9 L Albumin 1.0 L Prealbumin Triglycerides Cholesterol LDL Cholesterol Direct HDL Cholesterol Urine pH Urine WBC (Auto) Urine Creatinine Urine Total Protein Fluid Total Protein Vancomycin Trough Rheumatoid Factor Complement C4 Miscellaneous Test Flexitest 1 H Crossmatch 10/07/16 10/07/16 10/07/16 10:00 11:24 18:10 WBC RBC Hgb Hct MCV MCH MCHC RDW Plt Count Lymph % (Auto) [place] % (Auto) Lymph # [place] # Baso # Seg Neutrophils % Seg Neuts % (Manual) Lymphocytes % (Manual) Monocytes % (Manual) Eosinophils % (Manual) Basophils % (Manual) Nucleated RBC % Seg Neutrophils # Seg Neutrophils # Man Lymphocytes # (Manual) Monocytes # (Manual) Eosinophils # (Manual) PT INR Fibrinogen dRVVT Confirm Interp Factor V Activity POC ABG pH POC ABG pCO2 POC ABG pO2 Sodium Potassium Chloride Carbon Dioxide BUN Creatinine Glucose POC Glucose 116 H 130 H Lactic Acid Calcium Phosphorus Magnesium Direct Bilirubin AST ALT Alkaline Phosphatase Lactate Dehydrogenase Troponin T C-Reactive Protein 19.40 H Total Protein Albumin Prealbumin Triglycerides Cholesterol LDL Cholesterol Direct HDL Cholesterol Urine pH Urine WBC (Auto) Urine Creatinine Urine Total Protein Fluid Total Protein Vancomycin Trough Rheumatoid Factor Complement C4 Miscellaneous Test Crossmatch 10/07/16 10/08/16 10/08/16 18:30 00:00 04:00 WBC RBC Hgb Hct MCV MCH MCHC RDW Plt Count Lymph % (Auto) [place] % (Auto) Lymph # [place] # Baso # Seg Neutrophils % Seg Neuts % (Manual) Lymphocytes % (Manual) Monocytes % (Manual) Eosinophils % (Manual) Basophils % (Manual) Nucleated RBC % Seg Neutrophils # Seg Neutrophils # Man Lymphocytes # (Manual) Monocytes # (Manual) Eosinophils # (Manual) PT INR Fibrinogen dRVVT Confirm Interp Factor V Activity POC ABG pH POC ABG pCO2 POC ABG pO2 Sodium 132 L Potassium 3.3 L Chloride 93.6 L Carbon Dioxide 17 L BUN 59 H Creatinine 2.7 H Glucose 121 H POC Glucose 122 H Lactic Acid Calcium 7.6 L Phosphorus Magnesium Direct Bilirubin AST ALT Alkaline Phosphatase Lactate Dehydrogenase Troponin T C-Reactive Protein Total Protein Albumin Prealbumin Triglycerides Cholesterol LDL Cholesterol Direct HDL Cholesterol Urine pH Urine WBC (Auto) > 182.0 H Urine Creatinine Urine Total Protein Fluid Total Protein Vancomycin Trough Rheumatoid Factor Complement C4 Miscellaneous Test Crossmatch 10/08/16 10/08/16 10/08/16 04:30 05:30 11:51 WBC RBC 5.15 H Hgb 14.4 H D Hct 44.5 H D MCV MCH MCHC RDW 19.5 H Plt Count 56 L Lymph % (Auto) [place] % (Auto) Lymph # [place] # Baso # Seg Neutrophils % Seg Neuts % (Manual) 24.0 L Lymphocytes % (Manual) 8.0 L Monocytes % (Manual) Eosinophils % (Manual) Basophils % (Manual) Nucleated RBC % 9.0 H Seg Neutrophils # Seg Neutrophils # Man Lymphocytes # (Manual) 0.7 L Monocytes # (Manual) Eosinophils # (Manual) PT INR Fibrinogen dRVVT Confirm Interp Factor V Activity POC ABG pH POC ABG pCO2 POC ABG pO2 Sodium Potassium Chloride Carbon Dioxide BUN Creatinine Glucose POC Glucose 125 H 150 H Lactic Acid Calcium Phosphorus Magnesium Direct Bilirubin AST ALT Alkaline Phosphatase Lactate Dehydrogenase Troponin T C-Reactive Protein Total Protein Albumin Prealbumin Triglycerides Cholesterol LDL Cholesterol Direct HDL Cholesterol Urine pH Urine WBC (Auto) Urine Creatinine Urine Total Protein Fluid Total Protein Vancomycin Trough Rheumatoid Factor Complement C4 Miscellaneous Test Crossmatch 10/08/16 10/08/16 10/08/16 12:49 17:07 19:30 WBC RBC Hgb 7.1 L D Hct 22.4 L D MCV MCH MCHC RDW Plt Count Lymph % (Auto) [place] % (Auto) Lymph # [place] # Baso # Seg Neutrophils % Seg Neuts % (Manual) Lymphocytes % (Manual) Monocytes % (Manual) Eosinophils % (Manual) Basophils % (Manual) Nucleated RBC % Seg Neutrophils # Seg Neutrophils # Man Lymphocytes # (Manual) Monocytes # (Manual) Eosinophils # (Manual) PT INR Fibrinogen dRVVT Confirm Interp Factor V Activity POC ABG pH POC ABG pCO2 28.2 L POC ABG pO2 111 H Sodium Potassium Chloride Carbon Dioxide BUN Creatinine Glucose POC Glucose 145 H Lactic Acid Calcium Phosphorus Magnesium Direct Bilirubin AST ALT Alkaline Phosphatase Lactate Dehydrogenase Troponin T C-Reactive Protein Total Protein Albumin Prealbumin Triglycerides Cholesterol LDL Cholesterol Direct HDL Cholesterol Urine pH Urine WBC (Auto) Urine Creatinine Urine Total Protein Fluid Total Protein Vancomycin Trough Rheumatoid Factor Complement C4 Miscellaneous Test Crossmatch 10/08/16 10/09/16 10/09/16 19:30 03:45 03:45 WBC 12.6 H RBC 2.36 L Hgb 6.7 L Hct 21.1 L MCV MCH MCHC RDW 19.5 H Plt Count 75 L Lymph % (Auto) [place] % (Auto) Lymph # [place] # Baso # Seg Neutrophils % Seg Neuts % (Manual) Lymphocytes % (Manual) Monocytes % (Manual) 10.0 H Eosinophils % (Manual) Basophils % (Manual) Nucleated RBC % 3.0 H Seg Neutrophils # Seg Neutrophils # Man Lymphocytes # (Manual) Monocytes # (Manual) 1.3 H Eosinophils # (Manual) PT 18.0 H INR 1.41 H Fibrinogen dRVVT Confirm Interp Factor V Activity POC ABG pH POC ABG pCO2 POC ABG pO2 Sodium 135 L Potassium Chloride Carbon Dioxide 17 L BUN 81 H Creatinine 3.2 H Glucose 109 H POC Glucose Lactic Acid Calcium 7.4 L Phosphorus 4.60 H D Magnesium Direct Bilirubin AST ALT Alkaline Phosphatase Lactate Dehydrogenase Troponin T C-Reactive Protein Total Protein Albumin Prealbumin Triglycerides Cholesterol LDL Cholesterol Direct HDL Cholesterol Urine pH Urine WBC (Auto) Urine Creatinine Urine Total Protein Fluid Total Protein Vancomycin Trough Rheumatoid Factor Complement C4 Miscellaneous Test Crossmatch 10/09/16 10/09/16 10/09/16 03:45 05:14 07:20 WBC RBC Hgb Hct MCV MCH MCHC RDW Plt Count Lymph % (Auto) [place] % (Auto) Lymph # [place] # Baso # Seg Neutrophils % Seg Neuts % (Manual) Lymphocytes % (Manual) Monocytes % (Manual) Eosinophils % (Manual) Basophils % (Manual) Nucleated RBC % Seg Neutrophils # Seg Neutrophils # Man Lymphocytes # (Manual) Monocytes # (Manual) Eosinophils # (Manual) PT 19.0 H INR 1.51 H Fibrinogen dRVVT Confirm Interp Factor V Activity POC ABG pH POC ABG pCO2 POC ABG pO2 Sodium Potassium Chloride Carbon Dioxide BUN Creatinine Glucose POC Glucose 151 H Lactic Acid Calcium Phosphorus Magnesium Direct Bilirubin AST ALT Alkaline Phosphatase Lactate Dehydrogenase Troponin T C-Reactive Protein Total Protein Albumin Prealbumin Triglycerides Cholesterol LDL Cholesterol Direct HDL Cholesterol Urine pH Urine WBC (Auto) Urine Creatinine Urine Total Protein Fluid Total Protein Vancomycin Trough Rheumatoid Factor Complement C4 Miscellaneous Test Crossmatch See Detail 10/09/16 10/09/16 10/09/16 11:46 16:20 16:43 WBC RBC Hgb 7.2 L Hct 22.2 L MCV MCH MCHC RDW Plt Count Lymph % (Auto) [place] % (Auto) Lymph # [place] # Baso # Seg Neutrophils % Seg Neuts % (Manual) Lymphocytes % (Manual) Monocytes % (Manual) Eosinophils % (Manual) Basophils % (Manual) Nucleated RBC % Seg Neutrophils # Seg Neutrophils # Man Lymphocytes # (Manual) Monocytes # (Manual) Eosinophils # (Manual) PT INR Fibrinogen dRVVT Confirm Interp Factor V Activity POC ABG pH POC ABG pCO2 POC ABG pO2 Sodium Potassium Chloride Carbon Dioxide BUN Creatinine Glucose POC Glucose 133 H 141 H Lactic Acid Calcium Phosphorus Magnesium Direct Bilirubin AST ALT Alkaline Phosphatase Lactate Dehydrogenase Troponin T C-Reactive Protein Total Protein Albumin Prealbumin Triglycerides Cholesterol LDL Cholesterol Direct HDL Cholesterol Urine pH Urine WBC (Auto) Urine Creatinine Urine Total Protein Fluid Total Protein Vancomycin Trough Rheumatoid Factor Complement C4 Miscellaneous Test Crossmatch 10/10/16 10/10/16 10/10/16 05:00 05:00 11:19 WBC 18.5 H RBC 2.19 L Hgb 6.4 L Hct 19.6 L* MCV MCH MCHC RDW 19.3 H Plt Count 93 L Lymph % (Auto) [place] % (Auto) Lymph # [place] # Baso # Seg Neutrophils % Seg Neuts % (Manual) Lymphocytes % (Manual) 10.0 L Monocytes % (Manual) Eosinophils % (Manual) Basophils % (Manual) Nucleated RBC % 4.0 H Seg Neutrophils # Seg Neutrophils # Man 11.3 H Lymphocytes # (Manual) Monocytes # (Manual) Eosinophils # (Manual) PT INR Fibrinogen dRVVT Confirm Interp Factor V Activity POC ABG pH POC ABG pCO2 POC ABG pO2 Sodium Potassium 5.7 H D Chloride Carbon Dioxide 16 L BUN 94 H Creatinine 3.1 H Glucose 131 H POC Glucose 153 H Lactic Acid Calcium 8.2 L Phosphorus 5.10 H Magnesium 2.40 H Direct Bilirubin 0.3 H AST ALT < 5 L Alkaline Phosphatase 319 H Lactate Dehydrogenase Troponin T C-Reactive Protein Total Protein 5.1 L Albumin 1.0 L Prealbumin Triglycerides Cholesterol LDL Cholesterol Direct HDL Cholesterol Urine pH Urine WBC (Auto) Urine Creatinine Urine Total Protein Fluid Total Protein Vancomycin Trough Rheumatoid Factor Complement C4 Miscellaneous Test Crossmatch 10/10/16 10/10/16 10/11/16 17:50 23:30 04:15 WBC RBC Hgb Hct MCV MCH MCHC RDW Plt Count Lymph % (Auto) [place] % (Auto) Lymph # [place] # Baso # Seg Neutrophils % Seg Neuts % (Manual) Lymphocytes % (Manual) Monocytes % (Manual) Eosinophils % (Manual) Basophils % (Manual) Nucleated RBC % Seg Neutrophils # Seg Neutrophils # Man Lymphocytes # (Manual) Monocytes # (Manual) Eosinophils # (Manual) PT INR Fibrinogen dRVVT Confirm Interp Factor V Activity POC ABG pH POC ABG pCO2 POC ABG pO2 Sodium Potassium Chloride 96.4 L Carbon Dioxide 21 L BUN 57 H Creatinine 2.1 H Glucose 151 H POC Glucose 146 H 141 H Lactic Acid Calcium 8.3 L Phosphorus Magnesium Direct Bilirubin AST ALT Alkaline Phosphatase Lactate Dehydrogenase Troponin T C-Reactive Protein Total Protein Albumin Prealbumin Triglycerides Cholesterol LDL Cholesterol Direct HDL Cholesterol Urine pH Urine WBC (Auto) Urine Creatinine Urine Total Protein Fluid Total Protein Vancomycin Trough Rheumatoid Factor Complement C4 Miscellaneous Test Crossmatch 10/11/16 10/11/16 10/11/16 04:15 04:15 05:30 WBC 28.3 H RBC 3.12 L Hgb 9.3 L Hct 28.7 L D MCV MCH MCHC RDW 17.7 H Plt Count 128 L Lymph % (Auto) [place] % (Auto) Lymph # [place] # Baso # Seg Neutrophils % Seg Neuts % (Manual) Lymphocytes % (Manual) Monocytes % (Manual) Eosinophils % (Manual) Basophils % (Manual) Nucleated RBC % Seg Neutrophils # Seg Neutrophils # Man Lymphocytes # (Manual) Monocytes # (Manual) Eosinophils # (Manual) PT INR Fibrinogen dRVVT Confirm Interp Factor V Activity POC ABG pH POC ABG pCO2 POC ABG pO2 Sodium Potassium Chloride Carbon Dioxide BUN Creatinine Glucose POC Glucose 167 H Lactic Acid Calcium Phosphorus Magnesium Direct Bilirubin AST ALT Alkaline Phosphatase Lactate Dehydrogenase Troponin T C-Reactive Protein 15.80 H Total Protein Albumin Prealbumin Triglycerides Cholesterol LDL Cholesterol Direct HDL Cholesterol Urine pH Urine WBC (Auto) Urine Creatinine Urine Total Protein Fluid Total Protein Vancomycin Trough Rheumatoid Factor Complement C4 Miscellaneous Test Crossmatch 10/11/16 10/11/16 10/11/16 11:40 15:49 23:57 WBC RBC Hgb Hct MCV MCH MCHC RDW Plt Count Lymph % (Auto) [place] % (Auto) Lymph # [place] # Baso # Seg Neutrophils % Seg Neuts % (Manual) Lymphocytes % (Manual) Monocytes % (Manual) Eosinophils % (Manual) Basophils % (Manual) Nucleated RBC % Seg Neutrophils # Seg Neutrophils # Man Lymphocytes # (Manual) Monocytes # (Manual) Eosinophils # (Manual) PT INR Fibrinogen dRVVT Confirm Interp Factor V Activity POC ABG pH POC ABG pCO2 POC ABG pO2 Sodium Potassium Chloride Carbon Dioxide BUN Creatinine Glucose POC Glucose 139 H 168 H 161 H Lactic Acid Calcium Phosphorus Magnesium Direct Bilirubin AST ALT Alkaline Phosphatase Lactate Dehydrogenase Troponin T C-Reactive Protein Total Protein Albumin Prealbumin Triglycerides Cholesterol LDL Cholesterol Direct HDL Cholesterol Urine pH Urine WBC (Auto) Urine Creatinine Urine Total Protein Fluid Total Protein Vancomycin Trough Rheumatoid Factor Complement C4 Miscellaneous Test Crossmatch 10/12/16 10/12/16 10/12/16 04:40 04:40 05:44 WBC 22.5 H RBC 2.88 L Hgb 8.8 L Hct 26.8 L MCV MCH MCHC RDW 17.8 H Plt Count Lymph % (Auto) [place] % (Auto) Lymph # [place] # Baso # Seg Neutrophils % Seg Neuts % (Manual) Lymphocytes % (Manual) Monocytes % (Manual) Eosinophils % (Manual) Basophils % (Manual) Nucleated RBC % Seg Neutrophils # Seg Neutrophils # Man Lymphocytes # (Manual) Monocytes # (Manual) Eosinophils # (Manual) PT INR Fibrinogen dRVVT Confirm Interp Factor V Activity POC ABG pH POC ABG pCO2 POC ABG pO2 Sodium 134 L Potassium Chloride 93.0 L Carbon Dioxide BUN 74 H Creatinine 2.5 H Glucose 137 H POC Glucose 158 H Lactic Acid Calcium 8.2 L Phosphorus Magnesium Direct Bilirubin AST ALT Alkaline Phosphatase Lactate Dehydrogenase Troponin T C-Reactive Protein Total Protein Albumin Prealbumin Triglycerides Cholesterol LDL Cholesterol Direct HDL Cholesterol Urine pH Urine WBC (Auto) Urine Creatinine Urine Total Protein Fluid Total Protein Vancomycin Trough Rheumatoid Factor Complement C4 Miscellaneous Test Crossmatch 10/12/16 10/12/16 10/12/16 12:27 18:18 23:46 WBC RBC Hgb Hct MCV MCH MCHC RDW Plt Count Lymph % (Auto) [place] % (Auto) Lymph # [place] # Baso # Seg Neutrophils % Seg Neuts % (Manual) Lymphocytes % (Manual) Monocytes % (Manual) Eosinophils % (Manual) Basophils % (Manual) Nucleated RBC % Seg Neutrophils # Seg Neutrophils # Man Lymphocytes # (Manual) Monocytes # (Manual) Eosinophils # (Manual) PT INR Fibrinogen dRVVT Confirm Interp Factor V Activity POC ABG pH POC ABG pCO2 POC ABG pO2 Sodium Potassium Chloride Carbon Dioxide BUN Creatinine Glucose POC Glucose 153 H 140 H 150 H Lactic Acid Calcium Phosphorus Magnesium Direct Bilirubin AST ALT Alkaline Phosphatase Lactate Dehydrogenase Troponin T C-Reactive Protein Total Protein Albumin Prealbumin Triglycerides Cholesterol LDL Cholesterol Direct HDL Cholesterol Urine pH Urine WBC (Auto) Urine Creatinine Urine Total Protein Fluid Total Protein Vancomycin Trough Rheumatoid Factor Complement C4 Miscellaneous Test Crossmatch 10/13/16 10/13/16 10/13/16 06:22 09:20 12:29 WBC RBC Hgb Hct MCV MCH MCHC RDW Plt Count Lymph % (Auto) [place] % (Auto) Lymph # [place] # Baso # Seg Neutrophils % Seg Neuts % (Manual) Lymphocytes % (Manual) Monocytes % (Manual) Eosinophils % (Manual) Basophils % (Manual) Nucleated RBC % Seg Neutrophils # Seg Neutrophils # Man Lymphocytes # (Manual) Monocytes # (Manual) Eosinophils # (Manual) PT INR Fibrinogen dRVVT Confirm Interp Factor V Activity POC ABG pH POC ABG pCO2 POC ABG pO2 Sodium Potassium Chloride Carbon Dioxide BUN Creatinine Glucose POC Glucose 165 H 193 H Lactic Acid Calcium Phosphorus Magnesium Direct Bilirubin AST ALT Alkaline Phosphatase Lactate Dehydrogenase Troponin T C-Reactive Protein Total Protein Albumin Prealbumin Triglycerides Cholesterol LDL Cholesterol Direct HDL Cholesterol Urine pH Urine WBC (Auto) Urine Creatinine Urine Total Protein Fluid Total Protein Vancomycin Trough Rheumatoid Factor Complement C4 Miscellaneous Test Flexitest 1 H Crossmatch 10/13/16 10/13/16 10/13/16 18:09 Unknown Unknown WBC 23.4 H RBC 2.83 L Hgb 8.7 L Hct 26.1 L MCV MCH MCHC RDW 18.1 H Plt Count Lymph % (Auto) [place] % (Auto) Lymph # [place] # Baso # Seg Neutrophils % Seg Neuts % (Manual) Lymphocytes % (Manual) Monocytes % (Manual) Eosinophils % (Manual) Basophils % (Manual) Nucleated RBC % Seg Neutrophils # Seg Neutrophils # Man Lymphocytes # (Manual) Monocytes # (Manual) Eosinophils # (Manual) PT INR Fibrinogen dRVVT Confirm Interp Factor V Activity POC ABG pH POC ABG pCO2 POC ABG pO2 Sodium Potassium Chloride 95.8 L Carbon Dioxide BUN 82 H Creatinine 2.6 H Glucose 152 H POC Glucose 166 H Lactic Acid Calcium Phosphorus Magnesium Direct Bilirubin AST ALT Alkaline Phosphatase Lactate Dehydrogenase Troponin T C-Reactive Protein Total Protein Albumin Prealbumin Triglycerides Cholesterol LDL Cholesterol Direct HDL Cholesterol Urine pH Urine WBC (Auto) Urine Creatinine Urine Total Protein Fluid Total Protein Vancomycin Trough Rheumatoid Factor Complement C4 Miscellaneous Test Crossmatch 10/14/16 10/14/16 10/14/16 05:38 06:35 08:10 WBC 20.7 H RBC 2.81 L Hgb 8.4 L Hct 27.2 L MCV MCH MCHC RDW 19.4 H Plt Count Lymph % (Auto) [place] % (Auto) Lymph # [place] # Baso # Seg Neutrophils % Seg Neuts % (Manual) Lymphocytes % (Manual) Monocytes % (Manual) Eosinophils % (Manual) Basophils % (Manual) Nucleated RBC % Seg Neutrophils # Seg Neutrophils # Man Lymphocytes # (Manual) Monocytes # (Manual) Eosinophils # (Manual) PT INR Fibrinogen dRVVT Confirm Interp Factor V Activity POC ABG pH POC ABG pCO2 POC ABG pO2 Sodium Potassium Chloride Carbon Dioxide BUN 58 H Creatinine 1.9 H Glucose 169 H POC Glucose 195 H Lactic Acid Calcium Phosphorus Magnesium Direct Bilirubin AST ALT Alkaline Phosphatase Lactate Dehydrogenase Troponin T C-Reactive Protein Total Protein Albumin Prealbumin Triglycerides Cholesterol LDL Cholesterol Direct HDL Cholesterol Urine pH Urine WBC (Auto) Urine Creatinine Urine Total Protein Fluid Total Protein Vancomycin Trough Rheumatoid Factor Complement C4 Miscellaneous Test Crossmatch 10/14/16 10/14/16 10/14/16 11:44 17:13 23:28 WBC RBC Hgb Hct MCV MCH MCHC RDW Plt Count Lymph % (Auto) [place] % (Auto) Lymph # [place] # Baso # Seg Neutrophils % Seg Neuts % (Manual) Lymphocytes % (Manual) Monocytes % (Manual) Eosinophils % (Manual) Basophils % (Manual) Nucleated RBC % Seg Neutrophils # Seg Neutrophils # Man Lymphocytes # (Manual) Monocytes # (Manual) Eosinophils # (Manual) PT INR Fibrinogen dRVVT Confirm Interp Factor V Activity POC ABG pH POC ABG pCO2 POC ABG pO2 Sodium Potassium Chloride Carbon Dioxide BUN Creatinine Glucose POC Glucose 174 H 121 H 151 H Lactic Acid Calcium Phosphorus Magnesium Direct Bilirubin AST ALT Alkaline Phosphatase Lactate Dehydrogenase Troponin T C-Reactive Protein Total Protein Albumin Prealbumin Triglycerides Cholesterol LDL Cholesterol Direct HDL Cholesterol Urine pH Urine WBC (Auto) Urine Creatinine Urine Total Protein Fluid Total Protein Vancomycin Trough Rheumatoid Factor Complement C4 Miscellaneous Test Crossmatch 10/15/16 10/15/16 10/15/16 05:06 12:26 17:48 WBC RBC Hgb Hct MCV MCH MCHC RDW Plt Count Lymph % (Auto) [place] % (Auto) Lymph # [place] # Baso # Seg Neutrophils % Seg Neuts % (Manual) Lymphocytes % (Manual) Monocytes % (Manual) Eosinophils % (Manual) Basophils % (Manual) Nucleated RBC % Seg Neutrophils # Seg Neutrophils # Man Lymphocytes # (Manual) Monocytes # (Manual) Eosinophils # (Manual) PT INR Fibrinogen dRVVT Confirm Interp Factor V Activity POC ABG pH POC ABG pCO2 POC ABG pO2 Sodium Potassium Chloride Carbon Dioxide BUN Creatinine Glucose POC Glucose 151 H 149 H 153 H Lactic Acid Calcium Phosphorus Magnesium Direct Bilirubin AST ALT Alkaline Phosphatase Lactate Dehydrogenase Troponin T C-Reactive Protein Total Protein Albumin Prealbumin Triglycerides Cholesterol LDL Cholesterol Direct HDL Cholesterol Urine pH Urine WBC (Auto) Urine Creatinine Urine Total Protein Fluid Total Protein Vancomycin Trough Rheumatoid Factor Complement C4 Miscellaneous Test Crossmatch 10/15/16 10/15/16 10/16/16 Unknown Unknown 00:02 WBC 23.4 H RBC 2.78 L Hgb 8.5 L Hct 25.7 L MCV MCH MCHC RDW 18.7 H Plt Count Lymph % (Auto) [place] % (Auto) Lymph # [place] # Baso # Seg Neutrophils % Seg Neuts % (Manual) Lymphocytes % (Manual) Monocytes % (Manual) Eosinophils % (Manual) Basophils % (Manual) Nucleated RBC % Seg Neutrophils # Seg Neutrophils # Man Lymphocytes # (Manual) Monocytes # (Manual) Eosinophils # (Manual) PT INR Fibrinogen dRVVT Confirm Interp Factor V Activity POC ABG pH POC ABG pCO2 POC ABG pO2 Sodium Potassium Chloride Carbon Dioxide BUN 73 H Creatinine 2.3 H Glucose 120 H POC Glucose 137 H Lactic Acid Calcium Phosphorus Magnesium Direct Bilirubin AST ALT Alkaline Phosphatase Lactate Dehydrogenase Troponin T C-Reactive Protein Total Protein Albumin Prealbumin Triglycerides Cholesterol LDL Cholesterol Direct HDL Cholesterol Urine pH Urine WBC (Auto) Urine Creatinine Urine Total Protein Fluid Total Protein Vancomycin Trough Rheumatoid Factor Complement C4 Miscellaneous Test Crossmatch 10/16/16 10/16/16 10/16/16 05:44 06:25 06:25 WBC 22.5 H RBC 2.76 L Hgb 8.3 L Hct 25.2 L MCV MCH MCHC RDW 18.3 H Plt Count Lymph % (Auto) [place] % (Auto) Lymph # [place] # Baso # Seg Neutrophils % Seg Neuts % (Manual) Lymphocytes % (Manual) Monocytes % (Manual) Eosinophils % (Manual) Basophils % (Manual) Nucleated RBC % Seg Neutrophils # Seg Neutrophils # Man Lymphocytes # (Manual) Monocytes # (Manual) Eosinophils # (Manual) PT INR Fibrinogen dRVVT Confirm Interp Factor V Activity POC ABG pH POC ABG pCO2 POC ABG pO2 Sodium Potassium Chloride Carbon Dioxide BUN 92 H Creatinine 3.0 H Glucose 138 H POC Glucose 110 H Lactic Acid Calcium Phosphorus Magnesium Direct Bilirubin AST ALT Alkaline Phosphatase Lactate Dehydrogenase Troponin T C-Reactive Protein Total Protein Albumin Prealbumin Triglycerides Cholesterol LDL Cholesterol Direct HDL Cholesterol Urine pH Urine WBC (Auto) Urine Creatinine Urine Total Protein Fluid Total Protein Vancomycin Trough Rheumatoid Factor Complement C4 Miscellaneous Test Crossmatch 10/16/16 10/16/16 10/16/16 11:27 11:48 17:36 WBC RBC Hgb Hct MCV MCH MCHC RDW Plt Count Lymph % (Auto) [place] % (Auto) Lymph # [place] # Baso # Seg Neutrophils % Seg Neuts % (Manual) Lymphocytes % (Manual) Monocytes % (Manual) Eosinophils % (Manual) Basophils % (Manual) Nucleated RBC % Seg Neutrophils # Seg Neutrophils # Man Lymphocytes # (Manual) Monocytes # (Manual) Eosinophils # (Manual) PT INR Fibrinogen dRVVT Confirm Interp Factor V Activity POC ABG pH 7.582 H POC ABG pCO2 27.4 L POC ABG pO2 110 H Sodium Potassium Chloride Carbon Dioxide BUN Creatinine Glucose POC Glucose 121 H 133 H Lactic Acid Calcium Phosphorus Magnesium Direct Bilirubin AST ALT Alkaline Phosphatase Lactate Dehydrogenase Troponin T C-Reactive Protein Total Protein Albumin Prealbumin Triglycerides Cholesterol LDL Cholesterol Direct HDL Cholesterol Urine pH Urine WBC (Auto) Urine Creatinine Urine Total Protein Fluid Total Protein Vancomycin Trough Rheumatoid Factor Complement C4 Miscellaneous Test Crossmatch 10/16/16 10/17/16 10/17/16 20:48 04:24 04:24 WBC 21.4 H RBC 2.72 L Hgb 8.0 L Hct 25.2 L MCV MCH MCHC RDW 18.0 H Plt Count Lymph % (Auto) [place] % (Auto) Lymph # [place] # Baso # Seg Neutrophils % Seg Neuts % (Manual) Lymphocytes % (Manual) Monocytes % (Manual) Eosinophils % (Manual) Basophils % (Manual) Nucleated RBC % Seg Neutrophils # Seg Neutrophils # Man Lymphocytes # (Manual) Monocytes # (Manual) Eosinophils # (Manual) PT INR Fibrinogen dRVVT Confirm Interp Factor V Activity POC ABG pH 7.561 H POC ABG pCO2 24.4 L POC ABG pO2 77 L Sodium 148 H Potassium Chloride Carbon Dioxide BUN 104 H Creatinine 3.0 H Glucose 149 H POC Glucose Lactic Acid Calcium Phosphorus Magnesium Direct Bilirubin AST ALT Alkaline Phosphatase 138 H Lactate Dehydrogenase Troponin T C-Reactive Protein Total Protein 6.2 L Albumin 1.5 L Prealbumin Triglycerides Cholesterol LDL Cholesterol Direct HDL Cholesterol Urine pH Urine WBC (Auto) Urine Creatinine Urine Total Protein Fluid Total Protein Vancomycin Trough Rheumatoid Factor Complement C4 Miscellaneous Test Crossmatch 10/17/16 10/17/16 10/17/16 06:02 12:17 17:14 WBC RBC Hgb Hct MCV MCH MCHC RDW Plt Count Lymph % (Auto) [place] % (Auto) Lymph # [place] # Baso # Seg Neutrophils % Seg Neuts % (Manual) Lymphocytes % (Manual) Monocytes % (Manual) Eosinophils % (Manual) Basophils % (Manual) Nucleated RBC % Seg Neutrophils # Seg Neutrophils # Man Lymphocytes # (Manual) Monocytes # (Manual) Eosinophils # (Manual) PT INR Fibrinogen dRVVT Confirm Interp Factor V Activity POC ABG pH POC ABG pCO2 POC ABG pO2 Sodium Potassium Chloride Carbon Dioxide BUN Creatinine Glucose POC Glucose 170 H 167 H 126 H Lactic Acid Calcium Phosphorus Magnesium Direct Bilirubin AST ALT Alkaline Phosphatase Lactate Dehydrogenase Troponin T C-Reactive Protein Total Protein Albumin Prealbumin Triglycerides Cholesterol LDL Cholesterol Direct HDL Cholesterol Urine pH Urine WBC (Auto) Urine Creatinine Urine Total Protein Fluid Total Protein Vancomycin Trough Rheumatoid Factor Complement C4 Miscellaneous Test Crossmatch 10/17/16 10/18/16 10/18/16 23:17 04:00 04:00 WBC 20.7 H RBC 2.47 L Hgb 7.4 L Hct 22.9 L MCV MCH MCHC RDW 17.5 H Plt Count Lymph % (Auto) [place] % (Auto) Lymph # [place] # Baso # Seg Neutrophils % Seg Neuts % (Manual) Lymphocytes % (Manual) Monocytes % (Manual) Eosinophils % (Manual) Basophils % (Manual) Nucleated RBC % Seg Neutrophils # Seg Neutrophils # Man Lymphocytes # (Manual) Monocytes # (Manual) Eosinophils # (Manual) PT INR Fibrinogen dRVVT Confirm Interp Factor V Activity POC ABG pH POC ABG pCO2 POC ABG pO2 Sodium 149 H Potassium Chloride 107.9 H Carbon Dioxide 20 L BUN 117 H Creatinine 3.2 H Glucose 119 H POC Glucose 121 H Lactic Acid Calcium Phosphorus Magnesium Direct Bilirubin AST ALT Alkaline Phosphatase Lactate Dehydrogenase Troponin T C-Reactive Protein Total Protein Albumin Prealbumin Triglycerides Cholesterol LDL Cholesterol Direct HDL Cholesterol Urine pH Urine WBC (Auto) Urine Creatinine Urine Total Protein Fluid Total Protein Vancomycin Trough Rheumatoid Factor Complement C4 Miscellaneous Test Crossmatch 10/18/16 10/18/16 10/18/16 05:23 10:46 17:30 WBC RBC Hgb Hct MCV MCH MCHC RDW Plt Count Lymph % (Auto) [place] % (Auto) Lymph # [place] # Baso # Seg Neutrophils % Seg Neuts % (Manual) Lymphocytes % (Manual) Monocytes % (Manual) Eosinophils % (Manual) Basophils % (Manual) Nucleated RBC % Seg Neutrophils # Seg Neutrophils # Man Lymphocytes # (Manual) Monocytes # (Manual) Eosinophils # (Manual) PT INR Fibrinogen dRVVT Confirm Interp Factor V Activity POC ABG pH POC ABG pCO2 POC ABG pO2 Sodium Potassium Chloride Carbon Dioxide BUN Creatinine Glucose POC Glucose 119 H 155 H 124 H Lactic Acid Calcium Phosphorus Magnesium Direct Bilirubin AST ALT Alkaline Phosphatase Lactate Dehydrogenase Troponin T C-Reactive Protein Total Protein Albumin Prealbumin Triglycerides Cholesterol LDL Cholesterol Direct HDL Cholesterol Urine pH Urine WBC (Auto) Urine Creatinine Urine Total Protein Fluid Total Protein Vancomycin Trough Rheumatoid Factor Complement C4 Miscellaneous Test Crossmatch 10/19/16 10/19/16 10/19/16 04:00 04:00 05:25 WBC 17.4 H RBC 2.54 L Hgb 7.7 L Hct 23.6 L MCV MCH MCHC RDW 17.3 H Plt Count Lymph % (Auto) [place] % (Auto) Lymph # [place] # Baso # Seg Neutrophils % Seg Neuts % (Manual) Lymphocytes % (Manual) Monocytes % (Manual) Eosinophils % (Manual) Basophils % (Manual) Nucleated RBC % Seg Neutrophils # Seg Neutrophils # Man Lymphocytes # (Manual) Monocytes # (Manual) Eosinophils # (Manual) PT INR Fibrinogen dRVVT Confirm Interp Factor V Activity POC ABG pH POC ABG pCO2 POC ABG pO2 Sodium Potassium Chloride Carbon Dioxide BUN 72 H Creatinine 2.1 H Glucose 116 H POC Glucose 119 H Lactic Acid Calcium Phosphorus Magnesium Direct Bilirubin AST ALT Alkaline Phosphatase Lactate Dehydrogenase Troponin T C-Reactive Protein Total Protein Albumin Prealbumin Triglycerides Cholesterol LDL Cholesterol Direct HDL Cholesterol Urine pH Urine WBC (Auto) Urine Creatinine Urine Total Protein Fluid Total Protein Vancomycin Trough Rheumatoid Factor Complement C4 Miscellaneous Test Crossmatch 10/19/16 10/19/16 10/20/16 11:46 23:59 06:00 WBC RBC Hgb Hct MCV MCH MCHC RDW Plt Count Lymph % (Auto) [place] % (Auto) Lymph # [place] # Baso # Seg Neutrophils % Seg Neuts % (Manual) Lymphocytes % (Manual) Monocytes % (Manual) Eosinophils % (Manual) Basophils % (Manual) Nucleated RBC % Seg Neutrophils # Seg Neutrophils # Man Lymphocytes # (Manual) Monocytes # (Manual) Eosinophils # (Manual) PT INR Fibrinogen dRVVT Confirm Interp Factor V Activity POC ABG pH POC ABG pCO2 POC ABG pO2 Sodium Potassium Chloride Carbon Dioxide 17 L BUN 94 H Creatinine 2.7 H Glucose POC Glucose 116 H 117 H Lactic Acid Calcium Phosphorus Magnesium Direct Bilirubin AST ALT Alkaline Phosphatase Lactate Dehydrogenase Troponin T C-Reactive Protein Total Protein Albumin Prealbumin Triglycerides Cholesterol LDL Cholesterol Direct HDL Cholesterol Urine pH Urine WBC (Auto) Urine Creatinine Urine Total Protein Fluid Total Protein Vancomycin Trough Rheumatoid Factor Complement C4 Miscellaneous Test Crossmatch 10/20/16 10/20/16 10/20/16 06:00 11:49 16:00 WBC 19.7 H RBC 2.51 L Hgb 7.7 L Hct 23.5 L MCV MCH MCHC RDW 17.5 H Plt Count Lymph % (Auto) [place] % (Auto) Lymph # [place] # Baso # Seg Neutrophils % Seg Neuts % (Manual) Lymphocytes % (Manual) Monocytes % (Manual) Eosinophils % (Manual) Basophils % (Manual) Nucleated RBC % Seg Neutrophils # Seg Neutrophils # Man Lymphocytes # (Manual) Monocytes # (Manual) Eosinophils # (Manual) PT INR Fibrinogen dRVVT Confirm Interp Factor V Activity POC ABG pH POC ABG pCO2 POC ABG pO2 Sodium Potassium Chloride Carbon Dioxide BUN Creatinine Glucose POC Glucose 117 H Lactic Acid Calcium Phosphorus Magnesium Direct Bilirubin AST ALT Alkaline Phosphatase Lactate Dehydrogenase Troponin T C-Reactive Protein Total Protein Albumin Prealbumin Triglycerides Cholesterol LDL Cholesterol Direct HDL Cholesterol Urine pH Urine WBC (Auto) Urine Creatinine Urine Total Protein Fluid Total Protein Vancomycin Trough Rheumatoid Factor Complement C4 Miscellaneous Test Flexitest 1 H Crossmatch 10/20/16 10/20/16 10/21/16 18:36 23:39 04:00 WBC RBC Hgb Hct MCV MCH MCHC RDW Plt Count Lymph % (Auto) [place] % (Auto) Lymph # [place] # Baso # Seg Neutrophils % Seg Neuts % (Manual) Lymphocytes % (Manual) Monocytes % (Manual) Eosinophils % (Manual) Basophils % (Manual) Nucleated RBC % Seg Neutrophils # Seg Neutrophils # Man Lymphocytes # (Manual) Monocytes # (Manual) Eosinophils # (Manual) PT INR Fibrinogen dRVVT Confirm Interp Factor V Activity POC ABG pH POC ABG pCO2 POC ABG pO2 Sodium Potassium 5.4 H D Chloride Carbon Dioxide 15 L BUN 110 H Creatinine 3.0 H Glucose POC Glucose 127 H 114 H Lactic Acid Calcium Phosphorus Magnesium Direct Bilirubin AST ALT Alkaline Phosphatase Lactate Dehydrogenase Troponin T C-Reactive Protein Total Protein Albumin Prealbumin Triglycerides Cholesterol LDL Cholesterol Direct HDL Cholesterol Urine pH Urine WBC (Auto) Urine Creatinine Urine Total Protein Fluid Total Protein Vancomycin Trough Rheumatoid Factor Complement C4 Miscellaneous Test Crossmatch 10/21/16 10/21/16 10/22/16 05:54 23:46 05:18 WBC RBC Hgb Hct MCV MCH MCHC RDW Plt Count Lymph % (Auto) [place] % (Auto) Lymph # [place] # Baso # Seg Neutrophils % Seg Neuts % (Manual) Lymphocytes % (Manual) Monocytes % (Manual) Eosinophils % (Manual) Basophils % (Manual) Nucleated RBC % Seg Neutrophils # Seg Neutrophils # Man Lymphocytes # (Manual) Monocytes # (Manual) Eosinophils # (Manual) PT INR Fibrinogen dRVVT Confirm Interp Factor V Activity POC ABG pH POC ABG pCO2 POC ABG pO2 Sodium Potassium Chloride Carbon Dioxide BUN Creatinine Glucose POC Glucose 119 H 108 H 109 H Lactic Acid Calcium Phosphorus Magnesium Direct Bilirubin AST ALT Alkaline Phosphatase Lactate Dehydrogenase Troponin T C-Reactive Protein Total Protein Albumin Prealbumin Triglycerides Cholesterol LDL Cholesterol Direct HDL Cholesterol Urine pH Urine WBC (Auto) Urine Creatinine Urine Total Protein Fluid Total Protein Vancomycin Trough Rheumatoid Factor Complement C4 Miscellaneous Test Crossmatch 10/22/16 10/22/16 10/22/16 06:40 06:40 06:40 WBC 14.0 H RBC 2.03 L Hgb 7.0 L Hct 20.5 L MCV 98 H MCH 34 H MCHC 35 H RDW 17.8 H Plt Count Lymph % (Auto) [place] % (Auto) 9.9 H Lymph # [place] # 1.4 H Baso # 0.2 H Seg Neutrophils % 72.0 H Seg Neuts % (Manual) Lymphocytes % (Manual) Monocytes % (Manual) Eosinophils % (Manual) Basophils % (Manual) Nucleated RBC % Seg Neutrophils # 10.0 H Seg Neutrophils # Man Lymphocytes # (Manual) Monocytes # (Manual) Eosinophils # (Manual) PT INR Fibrinogen dRVVT Confirm Interp Factor V Activity POC ABG pH POC ABG pCO2 POC ABG pO2 Sodium 130 L D Potassium Chloride 92.4 L Carbon Dioxide 20 L BUN 50 H Creatinine 1.6 H Glucose 589 H* POC Glucose Lactic Acid Calcium 7.8 L D Phosphorus Magnesium 1.60 L Direct Bilirubin AST ALT Alkaline Phosphatase Lactate Dehydrogenase Troponin T C-Reactive Protein Total Protein Albumin Prealbumin Triglycerides Cholesterol LDL Cholesterol Direct HDL Cholesterol Urine pH Urine WBC (Auto) Urine Creatinine Urine Total Protein Fluid Total Protein Vancomycin Trough Rheumatoid Factor Complement C4 Miscellaneous Test Crossmatch 10/22/16 10/22/16 10/22/16 11:39 16:44 23:36 WBC RBC Hgb Hct MCV MCH MCHC RDW Plt Count Lymph % (Auto) [place] % (Auto) Lymph # [place] # Baso # Seg Neutrophils % Seg Neuts % (Manual) Lymphocytes % (Manual) Monocytes % (Manual) Eosinophils % (Manual) Basophils % (Manual) Nucleated RBC % Seg Neutrophils # Seg Neutrophils # Man Lymphocytes # (Manual) Monocytes # (Manual) Eosinophils # (Manual) PT INR Fibrinogen dRVVT Confirm Interp Factor V Activity POC ABG pH POC ABG pCO2 POC ABG pO2 Sodium Potassium Chloride Carbon Dioxide BUN Creatinine Glucose POC Glucose 142 H 163 H 123 H Lactic Acid Calcium Phosphorus Magnesium Direct Bilirubin AST ALT Alkaline Phosphatase Lactate Dehydrogenase Troponin T C-Reactive Protein Total Protein Albumin Prealbumin Triglycerides Cholesterol LDL Cholesterol Direct HDL Cholesterol Urine pH Urine WBC (Auto) Urine Creatinine Urine Total Protein Fluid Total Protein Vancomycin Trough Rheumatoid Factor Complement C4 Miscellaneous Test Crossmatch 10/23/16 10/23/16 10/23/16 04:58 06:00 12:12 WBC RBC Hgb Hct MCV MCH MCHC RDW Plt Count Lymph % (Auto) [place] % (Auto) Lymph # [place] # Baso # Seg Neutrophils % Seg Neuts % (Manual) Lymphocytes % (Manual) Monocytes % (Manual) Eosinophils % (Manual) Basophils % (Manual) Nucleated RBC % Seg Neutrophils # Seg Neutrophils # Man Lymphocytes # (Manual) Monocytes # (Manual) Eosinophils # (Manual) PT INR Fibrinogen dRVVT Confirm Interp Factor V Activity POC ABG pH POC ABG pCO2 POC ABG pO2 Sodium 133 L Potassium 3.5 L Chloride 96.1 L Carbon Dioxide 18 L BUN 76 H Creatinine 2.1 H Glucose POC Glucose 133 H 138 H Lactic Acid Calcium 8.3 L Phosphorus Magnesium Direct Bilirubin AST ALT Alkaline Phosphatase Lactate Dehydrogenase Troponin T C-Reactive Protein Total Protein Albumin Prealbumin Triglycerides Cholesterol LDL Cholesterol Direct HDL Cholesterol Urine pH Urine WBC (Auto) Urine Creatinine Urine Total Protein Fluid Total Protein Vancomycin Trough Rheumatoid Factor Complement C4 Miscellaneous Test Crossmatch 10/23/16 10/23/16 10/24/16 16:53 23:37 04:00 WBC RBC Hgb Hct MCV MCH MCHC RDW Plt Count Lymph % (Auto) [place] % (Auto) Lymph # [place] # Baso # Seg Neutrophils % Seg Neuts % (Manual) Lymphocytes % (Manual) Monocytes % (Manual) Eosinophils % (Manual) Basophils % (Manual) Nucleated RBC % Seg Neutrophils # Seg Neutrophils # Man Lymphocytes # (Manual) Monocytes # (Manual) Eosinophils # (Manual) PT INR Fibrinogen dRVVT Confirm Interp Factor V Activity POC ABG pH POC ABG pCO2 POC ABG pO2 Sodium 131 L Potassium Chloride 94.5 L Carbon Dioxide 19 L BUN 97 H Creatinine 2.6 H Glucose 110 H POC Glucose 125 H 123 H Lactic Acid Calcium 8.3 L Phosphorus Magnesium Direct Bilirubin AST ALT Alkaline Phosphatase Lactate Dehydrogenase Troponin T C-Reactive Protein Total Protein Albumin Prealbumin Triglycerides Cholesterol LDL Cholesterol Direct HDL Cholesterol Urine pH Urine WBC (Auto) Urine Creatinine Urine Total Protein Fluid Total Protein Vancomycin Trough Rheumatoid Factor Complement C4 Miscellaneous Test Crossmatch 10/24/16 10/24/16 10/24/16 07:49 11:39 17:52 WBC RBC Hgb 6.0 L Hct 19.7 L* MCV MCH MCHC RDW Plt Count Lymph % (Auto) [place] % (Auto) Lymph # [place] # Baso # Seg Neutrophils % Seg Neuts % (Manual) Lymphocytes % (Manual) Monocytes % (Manual) Eosinophils % (Manual) Basophils % (Manual) Nucleated RBC % Seg Neutrophils # Seg Neutrophils # Man Lymphocytes # (Manual) Monocytes # (Manual) Eosinophils # (Manual) PT INR Fibrinogen dRVVT Confirm Interp Factor V Activity POC ABG pH POC ABG pCO2 POC ABG pO2 Sodium Potassium Chloride Carbon Dioxide BUN Creatinine Glucose POC Glucose 106 H 158 H Lactic Acid Calcium Phosphorus Magnesium Direct Bilirubin AST ALT Alkaline Phosphatase Lactate Dehydrogenase Troponin T C-Reactive Protein Total Protein Albumin Prealbumin Triglycerides Cholesterol LDL Cholesterol Direct HDL Cholesterol Urine pH Urine WBC (Auto) Urine Creatinine Urine Total Protein Fluid Total Protein Vancomycin Trough Rheumatoid Factor Complement C4 Miscellaneous Test Crossmatch 10/24/16 10/24/16 10/24/16 20:00 22:27 Unknown WBC RBC Hgb 9.4 L D Hct 27.5 L D MCV MCH MCHC RDW Plt Count Lymph % (Auto) [place] % (Auto) Lymph # [place] # Baso # Seg Neutrophils % Seg Neuts % (Manual) Lymphocytes % (Manual) Monocytes % (Manual) Eosinophils % (Manual) Basophils % (Manual) Nucleated RBC % Seg Neutrophils # Seg Neutrophils # Man Lymphocytes # (Manual) Monocytes # (Manual) Eosinophils # (Manual) PT INR Fibrinogen dRVVT Confirm Interp Factor V Activity POC ABG pH POC ABG pCO2 POC ABG pO2 Sodium Potassium Chloride Carbon Dioxide BUN Creatinine Glucose POC Glucose 125 H Lactic Acid Calcium Phosphorus Magnesium Direct Bilirubin AST ALT Alkaline Phosphatase Lactate Dehydrogenase Troponin T C-Reactive Protein Total Protein Albumin Prealbumin Triglycerides Cholesterol LDL Cholesterol Direct HDL Cholesterol Urine pH Urine WBC (Auto) Urine Creatinine Urine Total Protein Fluid Total Protein Vancomycin Trough Rheumatoid Factor Complement C4 Miscellaneous Test Crossmatch See Detail 10/25/16 10/25/16 10/25/16 04:00 04:00 04:00 WBC 14.2 H RBC 2.98 L Hgb 9.0 L Hct 26.2 L MCV MCH MCHC RDW 16.6 H Plt Count Lymph % (Auto) [place] % (Auto) 10.7 H Lymph # [place] # 1.5 H Baso # Seg Neutrophils % 73.6 H Seg Neuts % (Manual) Lymphocytes % (Manual) Monocytes % (Manual) Eosinophils % (Manual) Basophils % (Manual) Nucleated RBC % Seg Neutrophils # 10.5 H Seg Neutrophils # Man Lymphocytes # (Manual) Monocytes # (Manual) Eosinophils # (Manual) PT INR Fibrinogen dRVVT Confirm Interp Factor V Activity POC ABG pH POC ABG pCO2 POC ABG pO2 Sodium 132 L Potassium Chloride 94.7 L Carbon Dioxide BUN 51 H Creatinine 1.6 H Glucose 130 H POC Glucose Lactic Acid Calcium 8.3 L Phosphorus 1.60 L D Magnesium Direct Bilirubin AST ALT Alkaline Phosphatase Lactate Dehydrogenase Troponin T C-Reactive Protein Total Protein Albumin Prealbumin Triglycerides Cholesterol LDL Cholesterol Direct HDL Cholesterol Urine pH Urine WBC (Auto) Urine Creatinine Urine Total Protein Fluid Total Protein Vancomycin Trough Rheumatoid Factor Complement C4 Miscellaneous Test Crossmatch 10/25/16 10/25/16 10/25/16 04:32 11:48 17:22 WBC RBC Hgb Hct MCV MCH MCHC RDW Plt Count Lymph % (Auto) [place] % (Auto) Lymph # [place] # Baso # Seg Neutrophils % Seg Neuts % (Manual) Lymphocytes % (Manual) Monocytes % (Manual) Eosinophils % (Manual) Basophils % (Manual) Nucleated RBC % Seg Neutrophils # Seg Neutrophils # Man Lymphocytes # (Manual) Monocytes # (Manual) Eosinophils # (Manual) PT INR Fibrinogen dRVVT Confirm Interp Factor V Activity POC ABG pH POC ABG pCO2 POC ABG pO2 Sodium Potassium Chloride Carbon Dioxide BUN Creatinine Glucose POC Glucose 124 H 171 H 120 H Lactic Acid Calcium Phosphorus Magnesium Direct Bilirubin AST ALT Alkaline Phosphatase Lactate Dehydrogenase Troponin T C-Reactive Protein Total Protein Albumin Prealbumin Triglycerides Cholesterol LDL Cholesterol Direct HDL Cholesterol Urine pH Urine WBC (Auto) Urine Creatinine Urine Total Protein Fluid Total Protein Vancomycin Trough Rheumatoid Factor Complement C4 Miscellaneous Test Crossmatch 10/26/16 10/26/16 10/26/16 04:54 07:06 07:06 WBC 16.9 H RBC 3.06 L Hgb 9.1 L Hct 26.9 L MCV MCH MCHC RDW 16.9 H Plt Count Lymph % (Auto) [place] % (Auto) Lymph # [place] # Baso # Seg Neutrophils % Seg Neuts % (Manual) 71.0 H Lymphocytes % (Manual) 5.0 L Monocytes % (Manual) 12.0 H Eosinophils % (Manual) Basophils % (Manual) Nucleated RBC % Seg Neutrophils # Seg Neutrophils # Man 12.0 H Lymphocytes # (Manual) 0.8 L Monocytes # (Manual) 2.0 H Eosinophils # (Manual) PT INR Fibrinogen dRVVT Confirm Interp Factor V Activity POC ABG pH POC ABG pCO2 POC ABG pO2 Sodium 135 L Potassium Chloride 97.1 L Carbon Dioxide BUN 73 H Creatinine 2.2 H Glucose 117 H POC Glucose 123 H Lactic Acid Calcium Phosphorus 1.70 L Magnesium Direct Bilirubin AST ALT Alkaline Phosphatase Lactate Dehydrogenase Troponin T C-Reactive Protein Total Protein Albumin Prealbumin Triglycerides Cholesterol LDL Cholesterol Direct HDL Cholesterol Urine pH Urine WBC (Auto) Urine Creatinine Urine Total Protein Fluid Total Protein Vancomycin Trough Rheumatoid Factor Complement C4 Miscellaneous Test Crossmatch 10/26/16 10/26/16 10/26/16 12:12 17:29 23:42 WBC RBC Hgb Hct MCV MCH MCHC RDW Plt Count Lymph % (Auto) [place] % (Auto) Lymph # [place] # Baso # Seg Neutrophils % Seg Neuts % (Manual) Lymphocytes % (Manual) Monocytes % (Manual) Eosinophils % (Manual) Basophils % (Manual) Nucleated RBC % Seg Neutrophils # Seg Neutrophils # Man Lymphocytes # (Manual) Monocytes # (Manual) Eosinophils # (Manual) PT INR Fibrinogen dRVVT Confirm Interp Factor V Activity POC ABG pH POC ABG pCO2 POC ABG pO2 Sodium Potassium Chloride Carbon Dioxide BUN Creatinine Glucose POC Glucose 126 H 161 H 118 H Lactic Acid Calcium Phosphorus Magnesium Direct Bilirubin AST ALT Alkaline Phosphatase Lactate Dehydrogenase Troponin T C-Reactive Protein Total Protein Albumin Prealbumin Triglycerides Cholesterol LDL Cholesterol Direct HDL Cholesterol Urine pH Urine WBC (Auto) Urine Creatinine Urine Total Protein Fluid Total Protein Vancomycin Trough Rheumatoid Factor Complement C4 Miscellaneous Test Crossmatch 10/27/16 10/27/16 10/27/16 05:03 06:30 06:30 WBC 13.9 H RBC 3.09 L Hgb 9.2 L Hct 27.5 L MCV MCH MCHC RDW 17.0 H Plt Count Lymph % (Auto) [place] % (Auto) Lymph # [place] # Baso # Seg Neutrophils % Seg Neuts % (Manual) 78.0 H Lymphocytes % (Manual) Monocytes % (Manual) Eosinophils % (Manual) Basophils % (Manual) Nucleated RBC % 2.0 H Seg Neutrophils # Seg Neutrophils # Man 10.8 H Lymphocytes # (Manual) Monocytes # (Manual) 1.0 H Eosinophils # (Manual) PT INR Fibrinogen dRVVT Confirm Interp Factor V Activity POC ABG pH POC ABG pCO2 POC ABG pO2 Sodium Potassium Chloride Carbon Dioxide BUN 40 H Creatinine 1.5 H Glucose 135 H POC Glucose 107 H Lactic Acid Calcium 8.3 L Phosphorus 1.30 L D Magnesium Direct Bilirubin AST ALT Alkaline Phosphatase Lactate Dehydrogenase Troponin T C-Reactive Protein Total Protein Albumin Prealbumin Triglycerides Cholesterol LDL Cholesterol Direct HDL Cholesterol Urine pH Urine WBC (Auto) Urine Creatinine Urine Total Protein Fluid Total Protein Vancomycin Trough Rheumatoid Factor Complement C4 Miscellaneous Test Crossmatch 10/27/16 10/27/16 10/27/16 13:27 18:07 23:40 WBC RBC Hgb Hct MCV MCH MCHC RDW Plt Count Lymph % (Auto) [place] % (Auto) Lymph # [place] # Baso # Seg Neutrophils % Seg Neuts % (Manual) Lymphocytes % (Manual) Monocytes % (Manual) Eosinophils % (Manual) Basophils % (Manual) Nucleated RBC % Seg Neutrophils # Seg Neutrophils # Man Lymphocytes # (Manual) Monocytes # (Manual) Eosinophils # (Manual) PT INR Fibrinogen dRVVT Confirm Interp Factor V Activity POC ABG pH POC ABG pCO2 POC ABG pO2 Sodium Potassium Chloride Carbon Dioxide BUN Creatinine Glucose POC Glucose 117 H 121 H 118 H Lactic Acid Calcium Phosphorus Magnesium Direct Bilirubin AST ALT Alkaline Phosphatase Lactate Dehydrogenase Troponin T C-Reactive Protein Total Protein Albumin Prealbumin Triglycerides Cholesterol LDL Cholesterol Direct HDL Cholesterol Urine pH Urine WBC (Auto) Urine Creatinine Urine Total Protein Fluid Total Protein Vancomycin Trough Rheumatoid Factor Complement C4 Miscellaneous Test Crossmatch 10/28/16 10/28/16 10/28/16 05:48 06:45 06:45 WBC 14.7 H RBC 3.05 L Hgb 9.0 L Hct 26.9 L MCV MCH MCHC RDW 16.8 H Plt Count Lymph % (Auto) 8.2 L [place] % (Auto) 8.4 H Lymph # [place] # 1.2 H Baso # Seg Neutrophils % 81.9 H Seg Neuts % (Manual) Lymphocytes % (Manual) Monocytes % (Manual) Eosinophils % (Manual) Basophils % (Manual) Nucleated RBC % Seg Neutrophils # 12.1 H Seg Neutrophils # Man Lymphocytes # (Manual) Monocytes # (Manual) Eosinophils # (Manual) PT INR Fibrinogen dRVVT Confirm Interp Factor V Activity POC ABG pH POC ABG pCO2 POC ABG pO2 Sodium Potassium Chloride Carbon Dioxide BUN 60 H Creatinine 1.9 H Glucose 120 H POC Glucose 114 H Lactic Acid Calcium Phosphorus Magnesium Direct Bilirubin AST ALT Alkaline Phosphatase Lactate Dehydrogenase Troponin T C-Reactive Protein Total Protein Albumin Prealbumin Triglycerides Cholesterol LDL Cholesterol Direct HDL Cholesterol Urine pH Urine WBC (Auto) Urine Creatinine Urine Total Protein Fluid Total Protein Vancomycin Trough Rheumatoid Factor Complement C4 Miscellaneous Test Crossmatch 10/28/16 10/28/16 10/29/16 17:08 23:50 05:10 WBC RBC Hgb Hct MCV MCH MCHC RDW Plt Count Lymph % (Auto) [place] % (Auto) Lymph # [place] # Baso # Seg Neutrophils % Seg Neuts % (Manual) Lymphocytes % (Manual) Monocytes % (Manual) Eosinophils % (Manual) Basophils % (Manual) Nucleated RBC % Seg Neutrophils # Seg Neutrophils # Man Lymphocytes # (Manual) Monocytes # (Manual) Eosinophils # (Manual) PT INR Fibrinogen dRVVT Confirm Interp Factor V Activity POC ABG pH POC ABG pCO2 POC ABG pO2 Sodium Potassium Chloride Carbon Dioxide BUN Creatinine Glucose POC Glucose 109 H 110 H 124 H Lactic Acid Calcium Phosphorus Magnesium Direct Bilirubin AST ALT Alkaline Phosphatase Lactate Dehydrogenase Troponin T C-Reactive Protein Total Protein Albumin Prealbumin Triglycerides Cholesterol LDL Cholesterol Direct HDL Cholesterol Urine pH Urine WBC (Auto) Urine Creatinine Urine Total Protein Fluid Total Protein Vancomycin Trough Rheumatoid Factor Complement C4 Miscellaneous Test Crossmatch 10/29/16 10/29/16 10/29/16 07:45 07:45 12:19 WBC 14.7 H RBC 3.15 L Hgb 9.3 L Hct 28.9 L MCV MCH MCHC RDW 17.0 H Plt Count Lymph % (Auto) 11.9 L [place] % (Auto) 8.6 H Lymph # [place] # 1.3 H Baso # Seg Neutrophils % 78.1 H Seg Neuts % (Manual) Lymphocytes % (Manual) Monocytes % (Manual) Eosinophils % (Manual) Basophils % (Manual) Nucleated RBC % Seg Neutrophils # 11.4 H Seg Neutrophils # Man Lymphocytes # (Manual) Monocytes # (Manual) Eosinophils # (Manual) PT INR Fibrinogen dRVVT Confirm Interp Factor V Activity POC ABG pH POC ABG pCO2 POC ABG pO2 Sodium Potassium 5.1 H Chloride Carbon Dioxide 19 L BUN 78 H Creatinine 2.2 H Glucose 116 H POC Glucose 118 H Lactic Acid Calcium Phosphorus Magnesium Direct Bilirubin AST ALT Alkaline Phosphatase Lactate Dehydrogenase Troponin T C-Reactive Protein Total Protein Albumin Prealbumin Triglycerides Cholesterol LDL Cholesterol Direct HDL Cholesterol Urine pH Urine WBC (Auto) Urine Creatinine Urine Total Protein Fluid Total Protein Vancomycin Trough Rheumatoid Factor Complement C4 Miscellaneous Test Crossmatch 10/29/16 10/30/16 10/30/16 17:49 01:52 03:28 WBC RBC Hgb Hct MCV MCH MCHC RDW Plt Count Lymph % (Auto) [place] % (Auto) Lymph # [place] # Baso # Seg Neutrophils % Seg Neuts % (Manual) Lymphocytes % (Manual) Monocytes % (Manual) Eosinophils % (Manual) Basophils % (Manual) Nucleated RBC % Seg Neutrophils # Seg Neutrophils # Man Lymphocytes # (Manual) Monocytes # (Manual) Eosinophils # (Manual) PT INR Fibrinogen dRVVT Confirm Interp Factor V Activity POC ABG pH POC ABG pCO2 POC ABG pO2 Sodium Potassium 5.4 H Chloride 97.5 L Carbon Dioxide 19 L BUN 90 H Creatinine 2.5 H Glucose POC Glucose 120 H 129 H Lactic Acid Calcium Phosphorus 5.20 H Magnesium Direct Bilirubin AST ALT Alkaline Phosphatase Lactate Dehydrogenase Troponin T C-Reactive Protein Total Protein Albumin Prealbumin Triglycerides Cholesterol LDL Cholesterol Direct HDL Cholesterol Urine pH Urine WBC (Auto) Urine Creatinine Urine Total Protein Fluid Total Protein Vancomycin Trough Rheumatoid Factor Complement C4 Miscellaneous Test Crossmatch 10/30/16 10/30/16 10/30/16 03:28 08:19 08:19 WBC 11.6 H 15.9 H RBC 2.75 L 2.82 L Hgb 7.9 L 8.3 L Hct 24.2 L 25.2 L MCV MCH MCHC RDW 16.7 H 17.2 H Plt Count Lymph % (Auto) [place] % (Auto) 9.8 H Lymph # [place] # 1.1 H Baso # Seg Neutrophils % 74.2 H Seg Neuts % (Manual) Lymphocytes % (Manual) Monocytes % (Manual) Eosinophils % (Manual) Basophils % (Manual) Nucleated RBC % Seg Neutrophils # 8.6 H Seg Neutrophils # Man Lymphocytes # (Manual) Monocytes # (Manual) Eosinophils # (Manual) PT INR Fibrinogen dRVVT Confirm Interp Factor V Activity POC ABG pH POC ABG pCO2 POC ABG pO2 Sodium Potassium 5.3 H Chloride 97.4 L Carbon Dioxide 19 L BUN 93 H Creatinine 2.6 H Glucose POC Glucose Lactic Acid Calcium Phosphorus Magnesium Direct Bilirubin AST ALT Alkaline Phosphatase Lactate Dehydrogenase Troponin T C-Reactive Protein Total Protein Albumin Prealbumin Triglycerides Cholesterol LDL Cholesterol Direct HDL Cholesterol Urine pH Urine WBC (Auto) Urine Creatinine Urine Total Protein Fluid Total Protein Vancomycin Trough Rheumatoid Factor Complement C4 Miscellaneous Test Crossmatch 10/30/16 10/30/16 10/31/16 17:11 23:56 00:40 WBC RBC Hgb Hct MCV MCH MCHC RDW Plt Count Lymph % (Auto) [place] % (Auto) Lymph # [place] # Baso # Seg Neutrophils % Seg Neuts % (Manual) Lymphocytes % (Manual) Monocytes % (Manual) Eosinophils % (Manual) Basophils % (Manual) Nucleated RBC % Seg Neutrophils # Seg Neutrophils # Man Lymphocytes # (Manual) Monocytes # (Manual) Eosinophils # (Manual) PT INR Fibrinogen dRVVT Confirm Interp Factor V Activity POC ABG pH POC ABG pCO2 POC ABG pO2 Sodium Potassium Chloride Carbon Dioxide BUN Creatinine Glucose POC Glucose 106 H 117 H 120 H Lactic Acid Calcium Phosphorus Magnesium Direct Bilirubin AST ALT Alkaline Phosphatase Lactate Dehydrogenase Troponin T C-Reactive Protein Total Protein Albumin Prealbumin Triglycerides Cholesterol LDL Cholesterol Direct HDL Cholesterol Urine pH Urine WBC (Auto) Urine Creatinine Urine Total Protein Fluid Total Protein Vancomycin Trough Rheumatoid Factor Complement C4 Miscellaneous Test Crossmatch 10/31/16 10/31/16 10/31/16 05:43 07:15 07:15 WBC 12.1 H RBC 2.63 L Hgb 7.7 L Hct 23.3 L MCV MCH MCHC RDW 16.7 H Plt Count Lymph % (Auto) 11.7 L [place] % (Auto) 7.7 H Lymph # [place] # 0.9 H Baso # Seg Neutrophils % 78.0 H Seg Neuts % (Manual) Lymphocytes % (Manual) Monocytes % (Manual) Eosinophils % (Manual) Basophils % (Manual) Nucleated RBC % Seg Neutrophils # 9.4 H Seg Neutrophils # Man Lymphocytes # (Manual) Monocytes # (Manual) Eosinophils # (Manual) PT INR Fibrinogen dRVVT Confirm Interp Factor V Activity POC ABG pH POC ABG pCO2 POC ABG pO2 Sodium Potassium Chloride 96.4 L Carbon Dioxide 21 L BUN 99 H Creatinine 2.6 H Glucose 144 H POC Glucose 125 H Lactic Acid Calcium Phosphorus 4.80 H Magnesium Direct Bilirubin AST ALT Alkaline Phosphatase Lactate Dehydrogenase Troponin T C-Reactive Protein Total Protein Albumin Prealbumin Triglycerides Cholesterol LDL Cholesterol Direct HDL Cholesterol Urine pH Urine WBC (Auto) Urine Creatinine Urine Total Protein Fluid Total Protein Vancomycin Trough Rheumatoid Factor Complement C4 Miscellaneous Test Crossmatch 10/31/16 10/31/16 11/01/16 11:46 18:34 00:20 WBC RBC Hgb Hct MCV MCH MCHC RDW Plt Count Lymph % (Auto) [place] % (Auto) Lymph # [place] # Baso # Seg Neutrophils % Seg Neuts % (Manual) Lymphocytes % (Manual) Monocytes % (Manual) Eosinophils % (Manual) Basophils % (Manual) Nucleated RBC % Seg Neutrophils # Seg Neutrophils # Man Lymphocytes # (Manual) Monocytes # (Manual) Eosinophils # (Manual) PT INR Fibrinogen dRVVT Confirm Interp Factor V Activity POC ABG pH POC ABG pCO2 POC ABG pO2 Sodium Potassium Chloride Carbon Dioxide BUN Creatinine Glucose POC Glucose 159 H 140 H 132 H Lactic Acid Calcium Phosphorus Magnesium Direct Bilirubin AST ALT Alkaline Phosphatase Lactate Dehydrogenase Troponin T C-Reactive Protein Total Protein Albumin Prealbumin Triglycerides Cholesterol LDL Cholesterol Direct HDL Cholesterol Urine pH Urine WBC (Auto) Urine Creatinine Urine Total Protein Fluid Total Protein Vancomycin Trough Rheumatoid Factor Complement C4 Miscellaneous Test Crossmatch 11/01/16 11/01/16 11/01/16 04:55 04:55 06:11 WBC 11.2 H RBC 2.68 L Hgb 7.5 L Hct 23.7 L MCV MCH MCHC RDW 16.1 H Plt Count Lymph % (Auto) [place] % (Auto) 9.8 H Lymph # [place] # 1.1 H Baso # Seg Neutrophils % 70.8 H Seg Neuts % (Manual) Lymphocytes % (Manual) Monocytes % (Manual) Eosinophils % (Manual) Basophils % (Manual) Nucleated RBC % Seg Neutrophils # 7.9 H Seg Neutrophils # Man Lymphocytes # (Manual) Monocytes # (Manual) Eosinophils # (Manual) PT INR Fibrinogen dRVVT Confirm Interp Factor V Activity POC ABG pH POC ABG pCO2 POC ABG pO2 Sodium Potassium 3.3 L D Chloride Carbon Dioxide BUN 61 H Creatinine 1.9 H Glucose 114 H POC Glucose 115 H Lactic Acid Calcium Phosphorus 1.80 L D Magnesium Direct Bilirubin AST ALT Alkaline Phosphatase Lactate Dehydrogenase Troponin T C-Reactive Protein Total Protein Albumin Prealbumin Triglycerides Cholesterol LDL Cholesterol Direct HDL Cholesterol Urine pH Urine WBC (Auto) Urine Creatinine Urine Total Protein Fluid Total Protein Vancomycin Trough Rheumatoid Factor Complement C4 Miscellaneous Test Crossmatch 11/01/16 11/01/16 11/01/16 12:29 18:23 23:58 WBC RBC Hgb Hct MCV MCH MCHC RDW Plt Count Lymph % (Auto) [place] % (Auto) Lymph # [place] # Baso # Seg Neutrophils % Seg Neuts % (Manual) Lymphocytes % (Manual) Monocytes % (Manual) Eosinophils % (Manual) Basophils % (Manual) Nucleated RBC % Seg Neutrophils # Seg Neutrophils # Man Lymphocytes # (Manual) Monocytes # (Manual) Eosinophils # (Manual) PT INR Fibrinogen dRVVT Confirm Interp Factor V Activity POC ABG pH POC ABG pCO2 POC ABG pO2 Sodium Potassium Chloride Carbon Dioxide BUN Creatinine Glucose POC Glucose 142 H 143 H 128 H Lactic Acid Calcium Phosphorus Magnesium Direct Bilirubin AST ALT Alkaline Phosphatase Lactate Dehydrogenase Troponin T C-Reactive Protein Total Protein Albumin Prealbumin Triglycerides Cholesterol LDL Cholesterol Direct HDL Cholesterol Urine pH Urine WBC (Auto) Urine Creatinine Urine Total Protein Fluid Total Protein Vancomycin Trough Rheumatoid Factor Complement C4 Miscellaneous Test Crossmatch 11/02/16 11/02/16 11/02/16 04:16 05:29 11:58 WBC RBC Hgb Hct MCV MCH MCHC RDW Plt Count Lymph % (Auto) [place] % (Auto) Lymph # [place] # Baso # Seg Neutrophils % Seg Neuts % (Manual) Lymphocytes % (Manual) Monocytes % (Manual) Eosinophils % (Manual) Basophils % (Manual) Nucleated RBC % Seg Neutrophils # Seg Neutrophils # Man Lymphocytes # (Manual) Monocytes # (Manual) Eosinophils # (Manual) PT INR Fibrinogen dRVVT Confirm Interp Factor V Activity POC ABG pH POC ABG pCO2 POC ABG pO2 Sodium Potassium 3.1 L Chloride Carbon Dioxide BUN 73 H Creatinine 2.3 H Glucose 112 H POC Glucose 135 H 149 H Lactic Acid Calcium Phosphorus Magnesium Direct Bilirubin AST ALT Alkaline Phosphatase Lactate Dehydrogenase Troponin T C-Reactive Protein Total Protein Albumin Prealbumin Triglycerides Cholesterol LDL Cholesterol Direct HDL Cholesterol Urine pH Urine WBC (Auto) Urine Creatinine Urine Total Protein Fluid Total Protein Vancomycin Trough Rheumatoid Factor Complement C4 Miscellaneous Test Crossmatch 11/02/16 11/02/16 11/03/16 17:42 22:54 06:00 WBC RBC Hgb Hct MCV MCH MCHC RDW Plt Count Lymph % (Auto) [place] % (Auto) Lymph # [place] # Baso # Seg Neutrophils % Seg Neuts % (Manual) Lymphocytes % (Manual) Monocytes % (Manual) Eosinophils % (Manual) Basophils % (Manual) Nucleated RBC % Seg Neutrophils # Seg Neutrophils # Man Lymphocytes # (Manual) Monocytes # (Manual) Eosinophils # (Manual) PT INR Fibrinogen dRVVT Confirm Interp Factor V Activity POC ABG pH POC ABG pCO2 POC ABG pO2 Sodium Potassium Chloride 96.7 L Carbon Dioxide BUN 41 H Creatinine 1.5 H Glucose 145 H POC Glucose 182 H 115 H Lactic Acid Calcium Phosphorus 1.60 L D Magnesium 1.50 L Direct Bilirubin AST ALT Alkaline Phosphatase Lactate Dehydrogenase Troponin T C-Reactive Protein Total Protein Albumin Prealbumin Triglycerides Cholesterol LDL Cholesterol Direct HDL Cholesterol Urine pH Urine WBC (Auto) Urine Creatinine Urine Total Protein Fluid Total Protein Vancomycin Trough Rheumatoid Factor Complement C4 Miscellaneous Test Crossmatch 11/03/16 11/03/16 11/03/16 11:53 17:45 23:37 WBC RBC Hgb Hct MCV MCH MCHC RDW Plt Count Lymph % (Auto) [place] % (Auto) Lymph # [place] # Baso # Seg Neutrophils % Seg Neuts % (Manual) Lymphocytes % (Manual) Monocytes % (Manual) Eosinophils % (Manual) Basophils % (Manual) Nucleated RBC % Seg Neutrophils # Seg Neutrophils # Man Lymphocytes # (Manual) Monocytes # (Manual) Eosinophils # (Manual) PT INR Fibrinogen dRVVT Confirm Interp Factor V Activity POC ABG pH POC ABG pCO2 POC ABG pO2 Sodium Potassium Chloride Carbon Dioxide BUN Creatinine Glucose POC Glucose 131 H 134 H 113 H Lactic Acid Calcium Phosphorus Magnesium Direct Bilirubin AST ALT Alkaline Phosphatase Lactate Dehydrogenase Troponin T C-Reactive Protein Total Protein Albumin Prealbumin Triglycerides Cholesterol LDL Cholesterol Direct HDL Cholesterol Urine pH Urine WBC (Auto) Urine Creatinine Urine Total Protein Fluid Total Protein Vancomycin Trough Rheumatoid Factor Complement C4 Miscellaneous Test Crossmatch 11/04/16 11/04/16 11/04/16 05:41 06:00 12:10 WBC RBC Hgb Hct MCV MCH MCHC RDW Plt Count Lymph % (Auto) [place] % (Auto) Lymph # [place] # Baso # Seg Neutrophils % Seg Neuts % (Manual) Lymphocytes % (Manual) Monocytes % (Manual) Eosinophils % (Manual) Basophils % (Manual) Nucleated RBC % Seg Neutrophils # Seg Neutrophils # Man Lymphocytes # (Manual) Monocytes # (Manual) Eosinophils # (Manual) PT INR Fibrinogen dRVVT Confirm Interp Factor V Activity POC ABG pH POC ABG pCO2 POC ABG pO2 Sodium Potassium Chloride 96.7 L Carbon Dioxide BUN 52 H Creatinine 1.9 H Glucose 126 H POC Glucose 137 H 191 H Lactic Acid Calcium Phosphorus Magnesium Direct Bilirubin AST ALT Alkaline Phosphatase Lactate Dehydrogenase Troponin T C-Reactive Protein Total Protein Albumin Prealbumin Triglycerides Cholesterol LDL Cholesterol Direct HDL Cholesterol Urine pH Urine WBC (Auto) Urine Creatinine Urine Total Protein Fluid Total Protein Vancomycin Trough Rheumatoid Factor Complement C4 Miscellaneous Test Crossmatch 11/04/16 11/05/16 11/05/16 22:57 03:10 05:10 WBC RBC Hgb Hct MCV MCH MCHC RDW Plt Count Lymph % (Auto) [place] % (Auto) Lymph # [place] # Baso # Seg Neutrophils % Seg Neuts % (Manual) Lymphocytes % (Manual) Monocytes % (Manual) Eosinophils % (Manual) Basophils % (Manual) Nucleated RBC % Seg Neutrophils # Seg Neutrophils # Man Lymphocytes # (Manual) Monocytes # (Manual) Eosinophils # (Manual) PT INR Fibrinogen dRVVT Confirm Interp Factor V Activity POC ABG pH POC ABG pCO2 POC ABG pO2 Sodium 136 L Potassium Chloride 97.2 L Carbon Dioxide BUN 32 H Creatinine 1.3 H Glucose 123 H POC Glucose 125 H 108 H Lactic Acid Calcium 7.8 L Phosphorus Magnesium Direct Bilirubin AST ALT Alkaline Phosphatase Lactate Dehydrogenase Troponin T C-Reactive Protein Total Protein Albumin Prealbumin Triglycerides Cholesterol LDL Cholesterol Direct HDL Cholesterol Urine pH Urine WBC (Auto) Urine Creatinine Urine Total Protein Fluid Total Protein Vancomycin Trough Rheumatoid Factor Complement C4 Miscellaneous Test Crossmatch 11/05/16 11/05/16 11/05/16 12:23 13:09 13:25 WBC RBC Hgb Hct MCV MCH MCHC RDW Plt Count Lymph % (Auto) [place] % (Auto) Lymph # [place] # Baso # Seg Neutrophils % Seg Neuts % (Manual) Lymphocytes % (Manual) Monocytes % (Manual) Eosinophils % (Manual) Basophils % (Manual) Nucleated RBC % Seg Neutrophils # Seg Neutrophils # Man Lymphocytes # (Manual) Monocytes # (Manual) Eosinophils # (Manual) PT INR Fibrinogen dRVVT Confirm Interp Factor V Activity POC ABG pH POC ABG pCO2 POC ABG pO2 Sodium Potassium Chloride Carbon Dioxide BUN Creatinine Glucose POC Glucose 124 H Lactic Acid Calcium Phosphorus Magnesium Direct Bilirubin AST ALT Alkaline Phosphatase Lactate Dehydrogenase Troponin T C-Reactive Protein 11.40 H Total Protein Albumin Prealbumin Triglycerides Cholesterol LDL Cholesterol Direct HDL Cholesterol Urine pH 9.0 H Urine WBC (Auto) Urine Creatinine Urine Total Protein Fluid Total Protein Vancomycin Trough Rheumatoid Factor Complement C4 Miscellaneous Test Crossmatch 11/05/16 11/05/16 11/05/16 13:25 17:54 23:42 WBC RBC Hgb Hct MCV MCH MCHC RDW Plt Count Lymph % (Auto) [place] % (Auto) Lymph # [place] # Baso # Seg Neutrophils % Seg Neuts % (Manual) Lymphocytes % (Manual) Monocytes % (Manual) Eosinophils % (Manual) Basophils % (Manual) Nucleated RBC % Seg Neutrophils # Seg Neutrophils # Man Lymphocytes # (Manual) Monocytes # (Manual) Eosinophils # (Manual) PT INR Fibrinogen dRVVT Confirm Interp Factor V Activity POC ABG pH POC ABG pCO2 POC ABG pO2 Sodium Potassium Chloride Carbon Dioxide BUN Creatinine Glucose POC Glucose 114 H 134 H Lactic Acid Calcium Phosphorus Magnesium Direct Bilirubin AST ALT Alkaline Phosphatase Lactate Dehydrogenase Troponin T C-Reactive Protein Total Protein Albumin Prealbumin Triglycerides Cholesterol LDL Cholesterol Direct HDL Cholesterol Urine pH Urine WBC (Auto) Urine Creatinine Urine Total Protein Fluid Total Protein Vancomycin Trough Rheumatoid Factor Complement C4 Miscellaneous Test Flexitest 1 H Crossmatch 11/06/16 11/06/16 11/06/16 04:56 06:25 06:25 WBC RBC 2.50 L Hgb 7.3 L Hct 22.5 L MCV MCH MCHC RDW 16.9 H Plt Count Lymph % (Auto) [place] % (Auto) 10.5 H Lymph # [place] # 1.1 H Baso # Seg Neutrophils % Seg Neuts % (Manual) Lymphocytes % (Manual) Monocytes % (Manual) Eosinophils % (Manual) Basophils % (Manual) Nucleated RBC % Seg Neutrophils # Seg Neutrophils # Man Lymphocytes # (Manual) Monocytes # (Manual) Eosinophils # (Manual) PT INR Fibrinogen dRVVT Confirm Interp Factor V Activity POC ABG pH POC ABG pCO2 POC ABG pO2 Sodium Potassium 5.1 H Chloride 95.9 L Carbon Dioxide BUN 52 H Creatinine 1.8 H Glucose 117 H POC Glucose 120 H Lactic Acid Calcium Phosphorus Magnesium Direct Bilirubin AST 103 H ALT 77 H Alkaline Phosphatase 285 H Lactate Dehydrogenase Troponin T C-Reactive Protein Total Protein 6.2 L Albumin 1.8 L Prealbumin 0.180 L Triglycerides Cholesterol LDL Cholesterol Direct HDL Cholesterol Urine pH Urine WBC (Auto) Urine Creatinine Urine Total Protein Fluid Total Protein Vancomycin Trough Rheumatoid Factor Complement C4 Miscellaneous Test Crossmatch 11/06/16 11/06/16 11/06/16 11:56 17:14 23:52 WBC RBC Hgb Hct MCV MCH MCHC RDW Plt Count Lymph % (Auto) [place] % (Auto) Lymph # [place] # Baso # Seg Neutrophils % Seg Neuts % (Manual) Lymphocytes % (Manual) Monocytes % (Manual) Eosinophils % (Manual) Basophils % (Manual) Nucleated RBC % Seg Neutrophils # Seg Neutrophils # Man Lymphocytes # (Manual) Monocytes # (Manual) Eosinophils # (Manual) PT INR Fibrinogen dRVVT Confirm Interp Factor V Activity POC ABG pH POC ABG pCO2 POC ABG pO2 Sodium Potassium Chloride Carbon Dioxide BUN Creatinine Glucose POC Glucose 141 H 125 H 130 H Lactic Acid Calcium Phosphorus Magnesium Direct Bilirubin AST ALT Alkaline Phosphatase Lactate Dehydrogenase Troponin T C-Reactive Protein Total Protein Albumin Prealbumin Triglycerides Cholesterol LDL Cholesterol Direct HDL Cholesterol Urine pH Urine WBC (Auto) Urine Creatinine Urine Total Protein Fluid Total Protein Vancomycin Trough Rheumatoid Factor Complement C4 Miscellaneous Test Crossmatch 11/07/16 11/07/16 11/07/16 06:30 06:30 09:37 WBC RBC 2.18 L Hgb 6.3 L Hct 19.7 L* MCV MCH MCHC RDW 16.8 H Plt Count Lymph % (Auto) [place] % (Auto) 10.0 H Lymph # [place] # 1.0 H Baso # Seg Neutrophils % Seg Neuts % (Manual) Lymphocytes % (Manual) Monocytes % (Manual) Eosinophils % (Manual) Basophils % (Manual) Nucleated RBC % Seg Neutrophils # Seg Neutrophils # Man Lymphocytes # (Manual) Monocytes # (Manual) Eosinophils # (Manual) PT INR Fibrinogen dRVVT Confirm Interp Factor V Activity POC ABG pH POC ABG pCO2 POC ABG pO2 Sodium 135 L Potassium Chloride 95.6 L Carbon Dioxide BUN 70 H Creatinine 2.0 H Glucose 126 H POC Glucose Lactic Acid Calcium Phosphorus Magnesium Direct Bilirubin AST ALT Alkaline Phosphatase Lactate Dehydrogenase Troponin T C-Reactive Protein Total Protein Albumin Prealbumin Triglycerides Cholesterol LDL Cholesterol Direct HDL Cholesterol Urine pH Urine WBC (Auto) Urine Creatinine Urine Total Protein Fluid Total Protein Vancomycin Trough Rheumatoid Factor Complement C4 Miscellaneous Test Crossmatch See Detail 11/07/16 11/07/16 11/07/16 12:52 18:51 21:26 WBC RBC Hgb Hct MCV MCH MCHC RDW Plt Count Lymph % (Auto) [place] % (Auto) Lymph # [place] # Baso # Seg Neutrophils % Seg Neuts % (Manual) Lymphocytes % (Manual) Monocytes % (Manual) Eosinophils % (Manual) Basophils % (Manual) Nucleated RBC % Seg Neutrophils # Seg Neutrophils # Man Lymphocytes # (Manual) Monocytes # (Manual) Eosinophils # (Manual) PT INR Fibrinogen dRVVT Confirm Interp Factor V Activity POC ABG pH 7.523 H POC ABG pCO2 34.6 L POC ABG pO2 53 L Sodium Potassium Chloride Carbon Dioxide BUN Creatinine Glucose POC Glucose 142 H 155 H Lactic Acid Calcium Phosphorus Magnesium Direct Bilirubin AST ALT Alkaline Phosphatase Lactate Dehydrogenase Troponin T C-Reactive Protein Total Protein Albumin Prealbumin Triglycerides Cholesterol LDL Cholesterol Direct HDL Cholesterol Urine pH Urine WBC (Auto) Urine Creatinine Urine Total Protein Fluid Total Protein Vancomycin Trough Rheumatoid Factor Complement C4 Miscellaneous Test Crossmatch 11/07/16 11/08/16 11/08/16 21:34 13:03 23:37 WBC RBC 2.63 L Hgb 7.7 L Hct 22.7 L MCV MCH MCHC RDW 17.0 H Plt Count Lymph % (Auto) [place] % (Auto) Lymph # [place] # Baso # Seg Neutrophils % Seg Neuts % (Manual) Lymphocytes % (Manual) Monocytes % (Manual) Eosinophils % (Manual) Basophils % (Manual) Nucleated RBC % Seg Neutrophils # Seg Neutrophils # Man Lymphocytes # (Manual) Monocytes # (Manual) Eosinophils # (Manual) PT INR Fibrinogen dRVVT Confirm Interp Factor V Activity POC ABG pH 7.478 H POC ABG pCO2 34.0 L POC ABG pO2 50 L Sodium Potassium Chloride Carbon Dioxide BUN Creatinine Glucose POC Glucose 113 H Lactic Acid Calcium Phosphorus Magnesium Direct Bilirubin AST ALT Alkaline Phosphatase Lactate Dehydrogenase Troponin T C-Reactive Protein Total Protein Albumin Prealbumin Triglycerides Cholesterol LDL Cholesterol Direct HDL Cholesterol Urine pH Urine WBC (Auto) Urine Creatinine Urine Total Protein Fluid Total Protein Vancomycin Trough Rheumatoid Factor Complement C4 Miscellaneous Test Crossmatch 11/09/16 11/09/16 11/09/16 04:35 10:15 18:21 WBC RBC 2.68 L Hgb 7.8 L Hct 23.3 L MCV MCH MCHC RDW 17.0 H Plt Count Lymph % (Auto) [place] % (Auto) 12.1 H Lymph # [place] # 1.1 H Baso # Seg Neutrophils % Seg Neuts % (Manual) Lymphocytes % (Manual) Monocytes % (Manual) Eosinophils % (Manual) Basophils % (Manual) Nucleated RBC % Seg Neutrophils # Seg Neutrophils # Man Lymphocytes # (Manual) Monocytes # (Manual) Eosinophils # (Manual) PT INR Fibrinogen dRVVT Confirm Interp Factor V Activity POC ABG pH POC ABG pCO2 POC ABG pO2 Sodium Potassium Chloride Carbon Dioxide BUN 51 H Creatinine 1.8 H Glucose POC Glucose 60 L Lactic Acid Calcium 8.3 L Phosphorus Magnesium Direct Bilirubin AST ALT Alkaline Phosphatase Lactate Dehydrogenase Troponin T C-Reactive Protein Total Protein Albumin Prealbumin Triglycerides Cholesterol LDL Cholesterol Direct HDL Cholesterol Urine pH Urine WBC (Auto) Urine Creatinine Urine Total Protein Fluid Total Protein Vancomycin Trough Rheumatoid Factor Complement C4 Miscellaneous Test Crossmatch 11/09/16 11/10/16 11/10/16 18:55 07:00 11:51 WBC RBC Hgb Hct MCV MCH MCHC RDW Plt Count Lymph % (Auto) [place] % (Auto) Lymph # [place] # Baso # Seg Neutrophils % Seg Neuts % (Manual) Lymphocytes % (Manual) Monocytes % (Manual) Eosinophils % (Manual) Basophils % (Manual) Nucleated RBC % Seg Neutrophils # Seg Neutrophils # Man Lymphocytes # (Manual) Monocytes # (Manual) Eosinophils # (Manual) PT INR Fibrinogen dRVVT Confirm Interp Factor V Activity POC ABG pH POC ABG pCO2 POC ABG pO2 Sodium Potassium 3.0 L D Chloride 97.4 L Carbon Dioxide BUN 28 H Creatinine 1.3 H Glucose POC Glucose 68 L 120 H Lactic Acid Calcium 7.8 L Phosphorus Magnesium Direct Bilirubin AST ALT Alkaline Phosphatase Lactate Dehydrogenase Troponin T C-Reactive Protein Total Protein Albumin Prealbumin Triglycerides Cholesterol LDL Cholesterol Direct HDL Cholesterol Urine pH Urine WBC (Auto) Urine Creatinine Urine Total Protein Fluid Total Protein Vancomycin Trough Rheumatoid Factor Complement C4 Miscellaneous Test Crossmatch 11/10/16 11/11/16 11/11/16 14:20 06:59 06:59 WBC RBC 2.81 L Hgb 8.1 L Hct 24.4 L MCV MCH MCHC RDW 16.4 H Plt Count Lymph % (Auto) [place] % (Auto) 10.8 H Lymph # [place] # 1.0 H Baso # Seg Neutrophils % Seg Neuts % (Manual) Lymphocytes % (Manual) Monocytes % (Manual) Eosinophils % (Manual) Basophils % (Manual) Nucleated RBC % Seg Neutrophils # Seg Neutrophils # Man Lymphocytes # (Manual) Monocytes # (Manual) Eosinophils # (Manual) PT INR Fibrinogen dRVVT Confirm Interp Factor V Activity POC ABG pH POC ABG pCO2 POC ABG pO2 Sodium Potassium Chloride Carbon Dioxide BUN Creatinine Glucose POC Glucose Lactic Acid Calcium Phosphorus Magnesium Direct Bilirubin AST ALT Alkaline Phosphatase Lactate Dehydrogenase 196 H Troponin T C-Reactive Protein Total Protein 6.1 L Albumin Prealbumin Triglycerides Cholesterol LDL Cholesterol Direct HDL Cholesterol Urine pH Urine WBC (Auto) Urine Creatinine Urine Total Protein Fluid Total Protein < 3.0 L Vancomycin Trough Rheumatoid Factor Complement C4 Miscellaneous Test Crossmatch 11/11/16 11/11/16 11/12/16 06:59 09:50 04:00 WBC RBC Hgb Hct MCV MCH MCHC RDW Plt Count Lymph % (Auto) [place] % (Auto) Lymph # [place] # Baso # Seg Neutrophils % Seg Neuts % (Manual) Lymphocytes % (Manual) Monocytes % (Manual) Eosinophils % (Manual) Basophils % (Manual) Nucleated RBC % Seg Neutrophils # Seg Neutrophils # Man Lymphocytes # (Manual) Monocytes # (Manual) Eosinophils # (Manual) PT INR 1.18 H Fibrinogen dRVVT Confirm Interp Factor V Activity POC ABG pH POC ABG pCO2 POC ABG pO2 Sodium 136 L 133 L Potassium Chloride 96.1 L 94.8 L Carbon Dioxide 21 L BUN 37 H 42 H Creatinine 1.8 H 2.0 H Glucose POC Glucose Lactic Acid Calcium Phosphorus Magnesium Direct Bilirubin AST ALT Alkaline Phosphatase Lactate Dehydrogenase Troponin T C-Reactive Protein Total Protein Albumin Prealbumin Triglycerides Cholesterol LDL Cholesterol Direct HDL Cholesterol Urine pH Urine WBC (Auto) Urine Creatinine Urine Total Protein Fluid Total Protein Vancomycin Trough Rheumatoid Factor Complement C4 Miscellaneous Test Crossmatch 11/12/16 11/12/16 11/13/16 04:00 23:55 05:53 WBC RBC Hgb 8.9 L Hct 27.2 L MCV MCH MCHC RDW Plt Count Lymph % (Auto) [place] % (Auto) Lymph # [place] # Baso # Seg Neutrophils % Seg Neuts % (Manual) Lymphocytes % (Manual) Monocytes % (Manual) Eosinophils % (Manual) Basophils % (Manual) Nucleated RBC % Seg Neutrophils # Seg Neutrophils # Man Lymphocytes # (Manual) Monocytes # (Manual) Eosinophils # (Manual) PT INR Fibrinogen dRVVT Confirm Interp Factor V Activity POC ABG pH POC ABG pCO2 POC ABG pO2 Sodium Potassium Chloride Carbon Dioxide BUN Creatinine Glucose POC Glucose 132 H 120 H Lactic Acid Calcium Phosphorus Magnesium Direct Bilirubin AST ALT Alkaline Phosphatase Lactate Dehydrogenase Troponin T C-Reactive Protein Total Protein Albumin Prealbumin Triglycerides Cholesterol LDL Cholesterol Direct HDL Cholesterol Urine pH Urine WBC (Auto) Urine Creatinine Urine Total Protein Fluid Total Protein Vancomycin Trough Rheumatoid Factor Complement C4 Miscellaneous Test Crossmatch 11/13/16 11/13/16 11/13/16 11:43 17:09 23:41 WBC RBC Hgb Hct MCV MCH MCHC RDW Plt Count Lymph % (Auto) [place] % (Auto) Lymph # [place] # Baso # Seg Neutrophils % Seg Neuts % (Manual) Lymphocytes % (Manual) Monocytes % (Manual) Eosinophils % (Manual) Basophils % (Manual) Nucleated RBC % Seg Neutrophils # Seg Neutrophils # Man Lymphocytes # (Manual) Monocytes # (Manual) Eosinophils # (Manual) PT INR Fibrinogen dRVVT Confirm Interp Factor V Activity POC ABG pH POC ABG pCO2 POC ABG pO2 Sodium Potassium Chloride Carbon Dioxide BUN Creatinine Glucose POC Glucose 114 H 113 H 108 H Lactic Acid Calcium Phosphorus Magnesium Direct Bilirubin AST ALT Alkaline Phosphatase Lactate Dehydrogenase Troponin T C-Reactive Protein Total Protein Albumin Prealbumin Triglycerides Cholesterol LDL Cholesterol Direct HDL Cholesterol Urine pH Urine WBC (Auto) Urine Creatinine Urine Total Protein Fluid Total Protein Vancomycin Trough Rheumatoid Factor Complement C4 Miscellaneous Test Crossmatch 11/13/16 11/15/16 11/15/16 Unknown 00:37 03:30 WBC 11.2 H RBC 2.72 L Hgb 7.6 L Hct 23.4 L MCV MCH MCHC RDW 16.5 H Plt Count Lymph % (Auto) [place] % (Auto) Lymph # [place] # Baso # Seg Neutrophils % Seg Neuts % (Manual) Lymphocytes % (Manual) Monocytes % (Manual) Eosinophils % (Manual) Basophils % (Manual) Nucleated RBC % Seg Neutrophils # Seg Neutrophils # Man Lymphocytes # (Manual) Monocytes # (Manual) Eosinophils # (Manual) PT INR Fibrinogen dRVVT Confirm Interp Factor V Activity POC ABG pH POC ABG pCO2 POC ABG pO2 Sodium 135 L Potassium Chloride 95.2 L Carbon Dioxide BUN 52 H Creatinine 2.2 H Glucose POC Glucose 108 H Lactic Acid Calcium Phosphorus Magnesium Direct Bilirubin AST ALT Alkaline Phosphatase Lactate Dehydrogenase Troponin T C-Reactive Protein Total Protein Albumin Prealbumin Triglycerides Cholesterol LDL Cholesterol Direct HDL Cholesterol Urine pH Urine WBC (Auto) Urine Creatinine Urine Total Protein Fluid Total Protein Vancomycin Trough Rheumatoid Factor Complement C4 Miscellaneous Test Crossmatch 11/15/16 11/15/16 11/15/16 03:30 05:04 11:50 WBC RBC Hgb Hct MCV MCH MCHC RDW Plt Count Lymph % (Auto) [place] % (Auto) Lymph # [place] # Baso # Seg Neutrophils % Seg Neuts % (Manual) Lymphocytes % (Manual) Monocytes % (Manual) Eosinophils % (Manual) Basophils % (Manual) Nucleated RBC % Seg Neutrophils # Seg Neutrophils # Man Lymphocytes # (Manual) Monocytes # (Manual) Eosinophils # (Manual) PT INR Fibrinogen dRVVT Confirm Interp Factor V Activity POC ABG pH POC ABG pCO2 POC ABG pO2 Sodium Potassium 3.4 L Chloride Carbon Dioxide BUN 25 H Creatinine 1.5 H Glucose 103 H POC Glucose 121 H 144 H Lactic Acid Calcium Phosphorus Magnesium Direct Bilirubin AST ALT Alkaline Phosphatase Lactate Dehydrogenase Troponin T C-Reactive Protein Total Protein Albumin Prealbumin Triglycerides Cholesterol LDL Cholesterol Direct HDL Cholesterol Urine pH Urine WBC (Auto) Urine Creatinine Urine Total Protein Fluid Total Protein Vancomycin Trough Rheumatoid Factor Complement C4 Miscellaneous Test Crossmatch 11/15/16 11/15/16 11/16/16 21:28 23:20 11:44 WBC RBC Hgb Hct MCV MCH MCHC RDW Plt Count Lymph % (Auto) [place] % (Auto) Lymph # [place] # Baso # Seg Neutrophils % Seg Neuts % (Manual) Lymphocytes % (Manual) Monocytes % (Manual) Eosinophils % (Manual) Basophils % (Manual) Nucleated RBC % Seg Neutrophils # Seg Neutrophils # Man Lymphocytes # (Manual) Monocytes # (Manual) Eosinophils # (Manual) PT INR Fibrinogen dRVVT Confirm Interp Factor V Activity POC ABG pH 7.462 H POC ABG pCO2 POC ABG pO2 71 L Sodium Potassium Chloride Carbon Dioxide BUN Creatinine Glucose POC Glucose 116 H 133 H Lactic Acid Calcium Phosphorus Magnesium Direct Bilirubin AST ALT Alkaline Phosphatase Lactate Dehydrogenase Troponin T C-Reactive Protein Total Protein Albumin Prealbumin Triglycerides Cholesterol LDL Cholesterol Direct HDL Cholesterol Urine pH Urine WBC (Auto) Urine Creatinine Urine Total Protein Fluid Total Protein Vancomycin Trough Rheumatoid Factor Complement C4 Miscellaneous Test Crossmatch 11/16/16 11/16/16 11/16/16 12:20 17:05 23:35 WBC 11.7 H RBC 2.73 L Hgb 7.6 L Hct 23.7 L MCV MCH MCHC RDW 16.6 H Plt Count Lymph % (Auto) [place] % (Auto) Lymph # [place] # Baso # Seg Neutrophils % Seg Neuts % (Manual) Lymphocytes % (Manual) Monocytes % (Manual) Eosinophils % (Manual) Basophils % (Manual) Nucleated RBC % Seg Neutrophils # Seg Neutrophils # Man Lymphocytes # (Manual) Monocytes # (Manual) Eosinophils # (Manual) PT INR Fibrinogen dRVVT Confirm Interp Factor V Activity POC ABG pH POC ABG pCO2 POC ABG pO2 Sodium Potassium Chloride Carbon Dioxide BUN Creatinine Glucose POC Glucose 154 H 125 H Lactic Acid Calcium Phosphorus Magnesium Direct Bilirubin AST ALT Alkaline Phosphatase Lactate Dehydrogenase Troponin T C-Reactive Protein Total Protein Albumin Prealbumin Triglycerides Cholesterol LDL Cholesterol Direct HDL Cholesterol Urine pH Urine WBC (Auto) Urine Creatinine Urine Total Protein Fluid Total Protein Vancomycin Trough Rheumatoid Factor Complement C4 Miscellaneous Test Crossmatch 11/17/16 11/17/16 11/17/16 03:20 03:20 03:20 WBC RBC 2.55 L Hgb 7.3 L Hct 21.9 L MCV MCH MCHC RDW 16.6 H Plt Count Lymph % (Auto) [place] % (Auto) 11.5 H Lymph # [place] # 1.1 H Baso # Seg Neutrophils % Seg Neuts % (Manual) Lymphocytes % (Manual) Monocytes % (Manual) Eosinophils % (Manual) Basophils % (Manual) Nucleated RBC % Seg Neutrophils # Seg Neutrophils # Man Lymphocytes # (Manual) Monocytes # (Manual) Eosinophils # (Manual) PT 16.8 H INR 1.37 H Fibrinogen dRVVT Confirm Interp Factor V Activity POC ABG pH POC ABG pCO2 POC ABG pO2 Sodium Potassium 3.5 L Chloride Carbon Dioxide BUN 21 H Creatinine Glucose POC Glucose Lactic Acid Calcium 7.9 L Phosphorus Magnesium Direct Bilirubin AST ALT Alkaline Phosphatase Lactate Dehydrogenase Troponin T C-Reactive Protein Total Protein Albumin Prealbumin Triglycerides Cholesterol LDL Cholesterol Direct HDL Cholesterol Urine pH Urine WBC (Auto) Urine Creatinine Urine Total Protein Fluid Total Protein Vancomycin Trough Rheumatoid Factor Complement C4 Miscellaneous Test Crossmatch 11/17/16 11/17/16 11/17/16 06:34 11:21 21:22 WBC RBC Hgb Hct MCV MCH MCHC RDW Plt Count Lymph % (Auto) [place] % (Auto) Lymph # [place] # Baso # Seg Neutrophils % Seg Neuts % (Manual) Lymphocytes % (Manual) Monocytes % (Manual) Eosinophils % (Manual) Basophils % (Manual) Nucleated RBC % Seg Neutrophils # Seg Neutrophils # Man Lymphocytes # (Manual) Monocytes # (Manual) Eosinophils # (Manual) PT INR Fibrinogen dRVVT Confirm Interp Factor V Activity POC ABG pH 7.467 H POC ABG pCO2 POC ABG pO2 73 L Sodium Potassium Chloride Carbon Dioxide BUN Creatinine Glucose POC Glucose 121 H 119 H Lactic Acid Calcium Phosphorus Magnesium Direct Bilirubin AST ALT Alkaline Phosphatase Lactate Dehydrogenase Troponin T C-Reactive Protein Total Protein Albumin Prealbumin Triglycerides Cholesterol LDL Cholesterol Direct HDL Cholesterol Urine pH Urine WBC (Auto) Urine Creatinine Urine Total Protein Fluid Total Protein Vancomycin Trough Rheumatoid Factor Complement C4 Miscellaneous Test Crossmatch 11/18/16 11/18/16 11/19/16 12:16 17:19 00:00 WBC RBC Hgb Hct MCV MCH MCHC RDW Plt Count Lymph % (Auto) [place] % (Auto) Lymph # [place] # Baso # Seg Neutrophils % Seg Neuts % (Manual) Lymphocytes % (Manual) Monocytes % (Manual) Eosinophils % (Manual) Basophils % (Manual) Nucleated RBC % Seg Neutrophils # Seg Neutrophils # Man Lymphocytes # (Manual) Monocytes # (Manual) Eosinophils # (Manual) PT INR Fibrinogen dRVVT Confirm Interp Factor V Activity POC ABG pH POC ABG pCO2 POC ABG pO2 Sodium Potassium Chloride Carbon Dioxide BUN Creatinine Glucose POC Glucose 124 H 162 H 139 H Lactic Acid Calcium Phosphorus Magnesium Direct Bilirubin AST ALT Alkaline Phosphatase Lactate Dehydrogenase Troponin T C-Reactive Protein Total Protein Albumin Prealbumin Triglycerides Cholesterol LDL Cholesterol Direct HDL Cholesterol Urine pH Urine WBC (Auto) Urine Creatinine Urine Total Protein Fluid Total Protein Vancomycin Trough Rheumatoid Factor Complement C4 Miscellaneous Test Crossmatch 11/19/16 11/19/16 11/20/16 05:00 12:43 00:40 WBC RBC Hgb Hct MCV MCH MCHC RDW Plt Count Lymph % (Auto) [place] % (Auto) Lymph # [place] # Baso # Seg Neutrophils % Seg Neuts % (Manual) Lymphocytes % (Manual) Monocytes % (Manual) Eosinophils % (Manual) Basophils % (Manual) Nucleated RBC % Seg Neutrophils # Seg Neutrophils # Man Lymphocytes # (Manual) Monocytes # (Manual) Eosinophils # (Manual) PT INR Fibrinogen dRVVT Confirm Interp Factor V Activity POC ABG pH POC ABG pCO2 POC ABG pO2 Sodium Potassium Chloride Carbon Dioxide BUN Creatinine Glucose POC Glucose 110 H 125 H 136 H Lactic Acid Calcium Phosphorus Magnesium Direct Bilirubin AST ALT Alkaline Phosphatase Lactate Dehydrogenase Troponin T C-Reactive Protein Total Protein Albumin Prealbumin Triglycerides Cholesterol LDL Cholesterol Direct HDL Cholesterol Urine pH Urine WBC (Auto) Urine Creatinine Urine Total Protein Fluid Total Protein Vancomycin Trough Rheumatoid Factor Complement C4 Miscellaneous Test Crossmatch 11/20/16 11/20/16 11/20/16 05:00 05:00 05:51 WBC 13.1 H RBC 2.74 L Hgb 7.7 L Hct 23.6 L MCV MCH MCHC RDW 16.9 H Plt Count Lymph % (Auto) [place] % (Auto) 10.8 H Lymph # [place] # 1.4 H Baso # Seg Neutrophils % Seg Neuts % (Manual) Lymphocytes % (Manual) Monocytes % (Manual) Eosinophils % (Manual) Basophils % (Manual) Nucleated RBC % Seg Neutrophils # 7.9 H Seg Neutrophils # Man Lymphocytes # (Manual) Monocytes # (Manual) Eosinophils # (Manual) PT INR Fibrinogen dRVVT Confirm Interp Factor V Activity POC ABG pH POC ABG pCO2 POC ABG pO2 Sodium Potassium Chloride Carbon Dioxide BUN 31 H Creatinine 1.8 H Glucose 129 H POC Glucose 133 H Lactic Acid Calcium Phosphorus Magnesium Direct Bilirubin AST ALT Alkaline Phosphatase Lactate Dehydrogenase Troponin T C-Reactive Protein Total Protein Albumin Prealbumin Triglycerides Cholesterol LDL Cholesterol Direct HDL Cholesterol Urine pH Urine WBC (Auto) Urine Creatinine Urine Total Protein Fluid Total Protein Vancomycin Trough Rheumatoid Factor Complement C4 Miscellaneous Test Crossmatch 11/20/16 11/20/16 11/21/16 12:40 18:10 01:20 WBC RBC Hgb Hct MCV MCH MCHC RDW Plt Count Lymph % (Auto) [place] % (Auto) Lymph # [place] # Baso # Seg Neutrophils % Seg Neuts % (Manual) Lymphocytes % (Manual) Monocytes % (Manual) Eosinophils % (Manual) Basophils % (Manual) Nucleated RBC % Seg Neutrophils # Seg Neutrophils # Man Lymphocytes # (Manual) Monocytes # (Manual) Eosinophils # (Manual) PT INR Fibrinogen dRVVT Confirm Interp Factor V Activity POC ABG pH POC ABG pCO2 POC ABG pO2 Sodium Potassium Chloride Carbon Dioxide BUN Creatinine Glucose POC Glucose 134 H 138 H 136 H Lactic Acid Calcium Phosphorus Magnesium Direct Bilirubin AST ALT Alkaline Phosphatase Lactate Dehydrogenase Troponin T C-Reactive Protein Total Protein Albumin Prealbumin Triglycerides Cholesterol LDL Cholesterol Direct HDL Cholesterol Urine pH Urine WBC (Auto) Urine Creatinine Urine Total Protein Fluid Total Protein Vancomycin Trough Rheumatoid Factor Complement C4 Miscellaneous Test Crossmatch 1011/21/16 11/21/16 07:04 07:45 07:45 WBC 22.0 H RBC 2.91 L Hgb 8.2 L Hct 25.4 L MCV MCH MCHC RDW 17.1 H Plt Count Lymph % (Auto) [place] % (Auto) Lymph # [place] # Baso # Seg Neutrophils % Seg Neuts % (Manual) Lymphocytes % (Manual) 8.0 L Monocytes % (Manual) Eosinophils % (Manual) Basophils % (Manual) Nucleated RBC % Seg Neutrophils # Seg Neutrophils # Man 14.7 H Lymphocytes # (Manual) Monocytes # (Manual) 1.1 H Eosinophils # (Manual) PT INR Fibrinogen dRVVT Confirm Interp Factor V Activity POC ABG pH POC ABG pCO2 POC ABG pO2 Sodium Potassium Chloride Carbon Dioxide BUN 42 H Creatinine 2.0 H Glucose POC Glucose 108 H Lactic Acid Calcium Phosphorus Magnesium Direct Bilirubin AST ALT Alkaline Phosphatase Lactate Dehydrogenase Troponin T C-Reactive Protein Total Protein Albumin Prealbumin Triglycerides Cholesterol LDL Cholesterol Direct HDL Cholesterol Urine pH Urine WBC (Auto) Urine Creatinine Urine Total Protein Fluid Total Protein Vancomycin Trough Rheumatoid Factor Complement C4 Miscellaneous Test Crossmatch 11/21/16 11/21/16 11/21/16 08:38 10:09 11:20 WBC RBC Hgb Hct MCV MCH MCHC RDW Plt Count Lymph % (Auto) [place] % (Auto) Lymph # [place] # Baso # Seg Neutrophils % Seg Neuts % (Manual) Lymphocytes % (Manual) Monocytes % (Manual) Eosinophils % (Manual) Basophils % (Manual) Nucleated RBC % Seg Neutrophils # Seg Neutrophils # Man Lymphocytes # (Manual) Monocytes # (Manual) Eosinophils # (Manual) PT INR Fibrinogen dRVVT Confirm Interp Factor V Activity POC ABG pH 7.346 L POC ABG pCO2 34.4 L POC ABG pO2 314 H Sodium Potassium Chloride Carbon Dioxide BUN Creatinine Glucose POC Glucose 195 H 153 H Lactic Acid Calcium Phosphorus Magnesium Direct Bilirubin AST ALT Alkaline Phosphatase Lactate Dehydrogenase Troponin T C-Reactive Protein Total Protein Albumin Prealbumin Triglycerides Cholesterol LDL Cholesterol Direct HDL Cholesterol Urine pH Urine WBC (Auto) Urine Creatinine Urine Total Protein Fluid Total Protein Vancomycin Trough Rheumatoid Factor Complement C4 Miscellaneous Test Crossmatch 11/21/16 11/22/16 11/22/16 23:37 04:48 05:00 WBC 29.7 H RBC 2.73 L Hgb 7.5 L Hct 24.2 L MCV MCH 27 L MCHC RDW 17.4 H Plt Count Lymph % (Auto) [place] % (Auto) Lymph # [place] # Baso # Seg Neutrophils % Seg Neuts % (Manual) Lymphocytes % (Manual) 7.0 L Monocytes % (Manual) Eosinophils % (Manual) Basophils % (Manual) Nucleated RBC % Seg Neutrophils # Seg Neutrophils # Man 15.4 H Lymphocytes # (Manual) Monocytes # (Manual) Eosinophils # (Manual) PT INR Fibrinogen dRVVT Confirm Interp Factor V Activity POC ABG pH POC ABG pCO2 24.6 L POC ABG pO2 189 H Sodium Potassium Chloride Carbon Dioxide BUN Creatinine Glucose POC Glucose 65 L Lactic Acid Calcium Phosphorus Magnesium Direct Bilirubin AST ALT Alkaline Phosphatase Lactate Dehydrogenase Troponin T C-Reactive Protein Total Protein Albumin Prealbumin Triglycerides Cholesterol LDL Cholesterol Direct HDL Cholesterol Urine pH Urine WBC (Auto) Urine Creatinine Urine Total Protein Fluid Total Protein Vancomycin Trough Rheumatoid Factor Complement C4 Miscellaneous Test Crossmatch 11/22/16 11/23/16 11/23/16 05:00 03:44 04:06 WBC RBC 2.52 L Hgb 7.2 L Hct 21.5 L MCV MCH MCHC RDW 17.1 H Plt Count Lymph % (Auto) [place] % (Auto) 12.4 H Lymph # [place] # 1.4 H Baso # Seg Neutrophils % Seg Neuts % (Manual) Lymphocytes % (Manual) Monocytes % (Manual) Eosinophils % (Manual) Basophils % (Manual) Nucleated RBC % Seg Neutrophils # Seg Neutrophils # Man Lymphocytes # (Manual) Monocytes # (Manual) Eosinophils # (Manual) PT INR Fibrinogen dRVVT Confirm Interp Factor V Activity POC ABG pH 7.493 H POC ABG pCO2 29.5 L POC ABG pO2 49 L Sodium 134 L Potassium Chloride 95.9 L Carbon Dioxide 14 L D BUN 51 H Creatinine 2.6 H Glucose POC Glucose Lactic Acid Calcium Phosphorus Magnesium Direct Bilirubin AST ALT Alkaline Phosphatase Lactate Dehydrogenase Troponin T C-Reactive Protein Total Protein Albumin Prealbumin Triglycerides Cholesterol LDL Cholesterol Direct HDL Cholesterol Urine pH Urine WBC (Auto) Urine Creatinine Urine Total Protein Fluid Total Protein Vancomycin Trough Rheumatoid Factor Complement C4 Miscellaneous Test Crossmatch 11/23/16 04:06 WBC RBC Hgb Hct MCV MCH MCHC RDW Plt Count Lymph % (Auto) [place] % (Auto) Lymph # [place] # Baso # Seg Neutrophils % Seg Neuts % (Manual) Lymphocytes % (Manual) Monocytes % (Manual) Eosinophils % (Manual) Basophils % (Manual) Nucleated RBC % Seg Neutrophils # Seg Neutrophils # Man Lymphocytes # (Manual) Monocytes # (Manual) Eosinophils # (Manual) PT INR Fibrinogen dRVVT Confirm Interp Factor V Activity POC ABG pH POC ABG pCO2 POC ABG pO2 Sodium 136 L Potassium Chloride 95.2 L Carbon Dioxide BUN 60 H Creatinine 2.9 H Glucose POC Glucose Lactic Acid Calcium Phosphorus Magnesium 1.60 L Direct Bilirubin AST ALT Alkaline Phosphatase Lactate Dehydrogenase Troponin T C-Reactive Protein Total Protein Albumin Prealbumin Triglycerides Cholesterol LDL Cholesterol Direct HDL Cholesterol Urine pH Urine WBC (Auto) Urine Creatinine Urine Total Protein Fluid Total Protein Vancomycin Trough Rheumatoid Factor Complement C4 Miscellaneous Test Crossmatch Allied health notes reviewed: RT
[2016-11-23] MEDS: D50W (25GM) Syringe IV PRN ×2 (11:43→17:45)
[2016-11-23] MEDS: APRESOLINE IV PRN ×2 (14:36→23:25)
[2016-11-23] MEDS ORDERED: VANCOMYCIN PHARMACY TO DOSE IV SCH (15:00)
[2016-11-23] MEDS ORDERED: VANCOMYCIN 1,250 MG in NACL 0.9% 250ML 250 ML IV ONE (15:00)
[2016-11-23] MEDS: TRANSDERM-SCOP TD SCH (15:13)
[2016-11-23] MEDS: HEPARIN SUB-Q SCH ×2 (15:56→23:24)
--- NOTE | 2016-11-23 16:45 | Progress Note ---
Assessment and Plan Patient had a cardiac event recently likely due to aspiration. Will hold off on any procedures. Continue to wean pressors and ventilator as tolerated. Subjective Date of service: 11/23/16 Patient Reports: Narrative: Continues to be non-communicative Objective Vital Signs - 12hr 11/23/16 11/23/16 11/23/16 04:45 05:00 05:15 Temperature Pulse Rate 99 H 96 H 91 H Pulse Rate [ From Monitor] Respiratory 17 18 18 Rate Blood Pressure 143/87 140/82 140/82 O2 Sat by Pulse 100 100 100 Oximetry O2 Sat by Pulse Oximetry [ Assessment] 11/23/16 11/23/16 11/23/16 05:31 05:45 06:00 Temperature Pulse Rate 90 89 98 H Pulse Rate [ From Monitor] Respiratory 18 18 18 Rate Blood Pressure 143/87 143/87 156/89 O2 Sat by Pulse 100 100 100 Oximetry O2 Sat by Pulse Oximetry [ Assessment] 11/23/16 11/23/16 11/23/16 06:15 06:31 06:45 Temperature Pulse Rate 87 111 H 99 H Pulse Rate [ From Monitor] Respiratory 18 8 L 18 Rate Blood Pressure 156/89 156/89 156/89 O2 Sat by Pulse 100 94 100 Oximetry O2 Sat by Pulse Oximetry [ Assessment] 11/23/16 11/23/16 11/23/16 07:00 07:15 07:31 Temperature Pulse Rate 97 H 108 H 94 H Pulse Rate [ 104 H From Monitor] Respiratory 17 18 14 Rate Blood Pressure 142/88 142/88 142/88 O2 Sat by Pulse 100 100 100 Oximetry O2 Sat by Pulse Oximetry [ Assessment] 11/23/16 11/23/16 11/23/16 07:45 08:00 08:15 Temperature 98.6 F Pulse Rate 87 88 93 H Pulse Rate [ From Monitor] Respiratory 18 18 17 Rate Blood Pressure 142/88 141/88 141/88 O2 Sat by Pulse 100 100 100 Oximetry O2 Sat by Pulse Oximetry [ Assessment] 11/23/16 11/23/16 11/23/16 08:30 08:31 08:40 Temperature Pulse Rate 92 H 89 Pulse Rate [ From Monitor] Respiratory 16 Rate Blood Pressure 143/95 141/88 O2 Sat by Pulse 99 100 Oximetry O2 Sat by Pulse 99 Oximetry [ Assessment] 11/23/16 11/23/16 11/23/16 08:45 09:00 09:14 Temperature Pulse Rate 97 H 91 H 90 Pulse Rate [ From Monitor] Respiratory 15 18 Rate Blood Pressure 141/88 143/95 143/95 O2 Sat by Pulse 100 100 Oximetry O2 Sat by Pulse Oximetry [ Assessment] 11/23/16 11/23/16 11/23/16 09:15 09:31 09:45 Temperature Pulse Rate 84 97 H 86 Pulse Rate [ From Monitor] Respiratory 18 16 18 Rate Blood Pressure 143/95 143/95 143/95 O2 Sat by Pulse 100 100 100 Oximetry O2 Sat by Pulse Oximetry [ Assessment] 11/23/16 11/23/16 11/23/16 10:00 10:15 10:31 Temperature Pulse Rate 87 88 92 H Pulse Rate [ From Monitor] Respiratory 18 18 18 Rate Blood Pressure 145/90 145/90 145/90 O2 Sat by Pulse 100 100 100 Oximetry O2 Sat by Pulse Oximetry [ Assessment] 11/23/16 11/23/16 11/23/16 10:45 11:00 11:15 Temperature Pulse Rate 85 98 H 82 Pulse Rate [ From Monitor] Respiratory 18 18 18 Rate Blood Pressure 145/90 154/97 145/90 O2 Sat by Pulse 100 100 100 Oximetry O2 Sat by Pulse Oximetry [ Assessment] 11/23/16 11/23/16 11/23/16 11:31 11:45 11:50 Temperature Pulse Rate 112 H 101 H Pulse Rate [ 82 From Monitor] Respiratory 18 18 Rate Blood Pressure 145/90 145/90 O2 Sat by Pulse 98 99 Oximetry O2 Sat by Pulse Oximetry [ Assessment] 11/23/16 11/23/16 11/23/16 12:00 12:15 12:31 Temperature 98.6 F Pulse Rate 96 H 87 80 Pulse Rate [ From Monitor] Respiratory 18 18 18 Rate Blood Pressure 162/91 162/91 162/91 O2 Sat by Pulse 100 Oximetry O2 Sat by Pulse Oximetry [ Assessment] 11/23/16 11/23/16 11/23/16 12:45 13:00 13:50 Temperature Pulse Rate 92 H 83 95 H Pulse Rate [ From Monitor] Respiratory 18 18 28 H Rate Blood Pressure 162/91 159/86 179/95 O2 Sat by Pulse 98 Oximetry O2 Sat by Pulse Oximetry [ Assessment] 11/23/16 11/23/16 14:36 16:13 Temperature Pulse Rate 95 H Pulse Rate [ From Monitor] Respiratory Rate Blood Pressure 179/95 O2 Sat by Pulse Oximetry O2 Sat by Pulse 100 Oximetry [ Assessment] - General physical appearance well developed, well nourished, no distress, obese - Eyes other (Opens eyes and able to track.) - ENT other (Duboff tube in place) - Respiratory normal expansion, other (On ventilator) - Abdomen soft, not tender, not distended, not rebound, not rigid, wound (Continue to drain into ostomy bags) - Labs 11/23/16 04:06 11/23/16 04:06 Diabetes panel 11/23/16 Range/Units 04:06 Sodium 136 L (137-145) mmol/L Potassium 4.2 (3.6-5.0) mmol/L Chloride 95.2 L (98-107) mmol/L Carbon Dioxide 22 D (22-30) mmol/L BUN 60 H (7-17) mg/dL Creatinine 2.9 H (0.7-1.2) mg/dL Glucose 72 (65-100) mg/dL Calcium 8.5 (8.4-10.2) mg/dL Calcium panel 11/23/16 Range/Units 04:06 Calcium 8.5 (8.4-10.2) mg/dL Phosphorus 4.00 (2.5-4.5) mg/dL Pituitary panel 11/23/16 Range/Units 04:06 Sodium 136 L (137-145) mmol/L Potassium 4.2 (3.6-5.0) mmol/L Chloride 95.2 L (98-107) mmol/L Carbon Dioxide 22 D (22-30) mmol/L BUN 60 H (7-17) mg/dL Creatinine 2.9 H (0.7-1.2) mg/dL Glucose 72 (65-100) mg/dL Calcium 8.5 (8.4-10.2) mg/dL Adrenal panel 11/23/16 Range/Units 04:06 Sodium 136 L (137-145) mmol/L Potassium 4.2 (3.6-5.0) mmol/L Chloride 95.2 L (98-107) mmol/L Carbon Dioxide 22 D (22-30) mmol/L BUN 60 H (7-17) mg/dL Creatinine 2.9 H (0.7-1.2) mg/dL Glucose 72 (65-100) mg/dL Calcium 8.5 (8.4-10.2) mg/dL
[2016-11-23] MEDS: D5/0.45NS 1,000 ML IV SCH (18:38)
[2016-11-24] MEDS: HumuLIN R SUB-Q SCH ×4 (00:43→18:03)
[2016-11-24] MEDS: CATAPRES PO SCH ×5 (00:44→22:35)
[2016-11-24] MEDS: DIOVAN FEEDTUBE SCH ×4 (00:44→22:20)
[2016-11-24] MEDS: LOPRESSOR FEEDTUBE SCH ×4 (00:45→19:13)
[2016-11-24] MEDS: APRESOLINE PO SCH ×4 (00:46→21:46)
[2016-11-24] MEDS: D50W (25GM) Syringe IV PRN ×3 (06:59→17:47)
--- NOTE | 2016-11-24 07:12 | XRay Report ---
Single view chest: Compared to 11/23/16. History: Followup of respiratory failure. Findings: Cardiomegaly. Stable support system. No interval change. Impression: No significant interval change.
[2016-11-24] MEDS: SODIUM BICARBONATE 150 MEQ in D5W 1,000 ML IV SCH (08:15)
[2016-11-24 08:27] LABS: Basophils % (Auto) 0.1 % (0.0-1.8); Eosinophils # (Auto) 0.1 K/mm3 (0.0-0.4); Eosinophils % (Auto) 0.5 % (0.0-4.3); Hematocrit 20.6 % (30.3-42.9); Hemoglobin 6.8 gm/dl (10.1-14.3); Lymphocytes # (Auto) 2.5 K/mm3 (1.2-5.4); Lymphocytes % (Auto) 22.4 % (13.4-35.0); Mean Corpuscular HGB Conc 33 % (30-34); Mean Corpuscular Hemoglobin 28 pg (28-32); Mean Corpuscular Volume 84 fl (79-97); Monocytes # (Auto) 1.2 K/mm3 (0.0-0.8); Monocytes % (Auto) 10.3 % (0.0-7.3); Platelet Count 272 K/mm3 (140-440); Red Blood Count 2.47 M/mm3 (3.65-5.03)
--- NOTE | 2016-11-24 08:36 | Progress Note ---
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 shift * Acute hypoxic respiratory failure * Left renal artery stenosis * Metabolic acidosis - improved * Anemia * Hyponatremia - multifactorial * tachycardia Plan: * hemodialysis only if hemodynamically stable * added bicarb gtt * monitor for renal recovery * vasopressors--titrate to map 65 * Rate control per cardiology * Dose medications for renal function * Avoid potential nephrotoxins Subjective Date of service: 11/24/16 Principal diagnosis: Acute resp failure on MVS; S/P Acute CVA; Acute Encephalopathy; JUANITA Interval history: new events from last pm noted Objective - Exam Narrative Exam: Gen. appearance: Patient lying in bed, no apparent distress, 4. restraints HEENT: Normocephalic, atraumatic, pupils equally round and reactive to light, extraocular movement intact, and no sclericterus,. No JVD or thyromegaly or nodule,neck supple, no carotid bruit ,mucous membranes moist, unable to examine oral cavity Heart: S1, S2, regular rate and rhythm Lungs: Clear to auscultation bilaterally, breathing comfortable Abdomen: Positive bowel sounds, nontender, nondistended, no organomegaly Extremity: No edema, cyanosis, clubbing Skin: No rash, nodules, warm, dry Neuro: Difficult to assess, facial droop, moves all 4 extremities - Vital Signs Vital signs: Vital Signs - 12hr 11/23/16 11/23/16 11/23/16 20:46 21:00 21:15 Temperature Pulse Rate 105 H 108 H 110 H Pulse Rate [ From Monitor] Pulse Rate [ Left Dorsalis Pedis] Pulse Rate [ Left Radial] Pulse Rate [ Right Radial] Respiratory 12 12 17 Rate Blood Pressure 155/94 156/97 155/94 O2 Sat by Pulse 100 100 100 Oximetry O2 Sat by Pulse Oximetry [ Assessment] 11/23/16 11/23/16 11/23/16 21:30 21:31 21:45 Temperature Pulse Rate 100 H 113 H 106 H Pulse Rate [ From Monitor] Pulse Rate [ Left Dorsalis Pedis] Pulse Rate [ Left Radial] Pulse Rate [ Right Radial] Respiratory 14 18 Rate Blood Pressure 156/97 155/94 155/94 O2 Sat by Pulse 100 100 100 Oximetry O2 Sat by Pulse Oximetry [ Assessment] 11/23/16 11/23/16 11/23/16 22:00 22:15 22:31 Temperature Pulse Rate 111 H 110 H 111 H Pulse Rate [ From Monitor] Pulse Rate [ Left Dorsalis Pedis] Pulse Rate [ Left Radial] Pulse Rate [ Right Radial] Respiratory 18 16 28 H Rate Blood Pressure 156/89 156/97 156/97 O2 Sat by Pulse 98 98 Oximetry O2 Sat by Pulse Oximetry [ Assessment] 11/23/16 11/23/16 11/23/16 22:45 23:01 23:15 Temperature Pulse Rate 122 H 118 H 120 H Pulse Rate [ From Monitor] Pulse Rate [ Left Dorsalis Pedis] Pulse Rate [ Left Radial] Pulse Rate [ Right Radial] Respiratory 19 21 16 Rate Blood Pressure 156/97 156/97 156/97 O2 Sat by Pulse 97 98 99 Oximetry O2 Sat by Pulse Oximetry [ Assessment] 11/23/16 11/23/16 11/23/16 23:25 23:31 23:45 Temperature Pulse Rate 123 H 117 H 112 H Pulse Rate [ From Monitor] Pulse Rate [ Left Dorsalis Pedis] Pulse Rate [ Left Radial] Pulse Rate [ Right Radial] Respiratory 14 17 Rate Blood Pressure 184/102 154/93 154/93 O2 Sat by Pulse 100 100 Oximetry O2 Sat by Pulse Oximetry [ Assessment] 11/23/16 11/23/16 11/24/16 23:47 23:56 00:00 Temperature 98.2 F Pulse Rate 108 H 121 H Pulse Rate [ 118 H From Monitor] Pulse Rate [ 118 H Left Dorsalis Pedis] Pulse Rate [ 118 H Left Radial] Pulse Rate [ 118 H Right Radial] Respiratory 18 15 15 Rate Blood Pressure 154/93 180/103 O2 Sat by Pulse 100 100 100 Oximetry O2 Sat by Pulse 100 Oximetry [ Assessment] 11/24/16 11/24/16 11/24/16 00:15 00:31 00:39 Temperature Pulse Rate 114 H 117 H 100 H Pulse Rate [ From Monitor] Pulse Rate [ Left Dorsalis Pedis] Pulse Rate [ Left Radial] Pulse Rate [ Right Radial] Respiratory 11 L 16 Rate Blood Pressure 159/101 159/101 154/93 O2 Sat by Pulse 100 100 100 Oximetry O2 Sat by Pulse Oximetry [ Assessment] 11/24/16 11/24/16 11/24/16 00:44 00:45 01:00 Temperature Pulse Rate 112 H 120 H 119 H Pulse Rate [ From Monitor] Pulse Rate [ Left Dorsalis Pedis] Pulse Rate [ Left Radial] Pulse Rate [ Right Radial] Respiratory 15 18 Rate Blood Pressure 156/78 159/101 152/89 O2 Sat by Pulse 100 97 Oximetry O2 Sat by Pulse Oximetry [ Assessment] 11/24/16 11/24/16 11/24/16 01:15 01:31 01:45 Temperature Pulse Rate 119 H 121 H 119 H Pulse Rate [ From Monitor] Pulse Rate [ Left Dorsalis Pedis] Pulse Rate [ Left Radial] Pulse Rate [ Right Radial] Respiratory 18 12 17 Rate Blood Pressure 152/89 152/89 152/89 O2 Sat by Pulse 100 100 100 Oximetry O2 Sat by Pulse Oximetry [ Assessment] 11/24/16 11/24/16 11/24/16 02:00 02:15 02:31 Temperature Pulse Rate 120 H 119 H 119 H Pulse Rate [ From Monitor] Pulse Rate [ Left Dorsalis Pedis] Pulse Rate [ Left Radial] Pulse Rate [ Right Radial] Respiratory 15 17 19 Rate Blood Pressure 137/88 137/88 137/88 O2 Sat by Pulse 99 100 100 Oximetry O2 Sat by Pulse Oximetry [ Assessment] 11/24/16 11/24/16 11/24/16 02:45 03:00 03:15 Temperature Pulse Rate 122 H 127 H 127 H Pulse Rate [ From Monitor] Pulse Rate [ Left Dorsalis Pedis] Pulse Rate [ Left Radial] Pulse Rate [ Right Radial] Respiratory 17 20 19 Rate Blood Pressure 137/88 156/84 156/84 O2 Sat by Pulse 100 100 100 Oximetry O2 Sat by Pulse Oximetry [ Assessment] 11/24/16 11/24/16 11/24/16 03:31 03:45 04:00 Temperature 98.5 F Pulse Rate 125 H 122 H 123 H Pulse Rate [ From Monitor] Pulse Rate [ Left Dorsalis Pedis] Pulse Rate [ Left Radial] Pulse Rate [ Right Radial] Respiratory 17 17 18 Rate Blood Pressure 156/84 156/84 156/84 O2 Sat by Pulse 100 98 100 Oximetry O2 Sat by Pulse Oximetry [ Assessment] 11/24/16 11/24/16 11/24/16 04:10 04:15 04:31 Temperature Pulse Rate 100 H 117 H 120 H Pulse Rate [ From Monitor] Pulse Rate [ Left Dorsalis Pedis] Pulse Rate [ Left Radial] Pulse Rate [ Right Radial] Respiratory 18 18 Rate Blood Pressure 129/70 129/70 129/70 O2 Sat by Pulse 100 99 100 Oximetry O2 Sat by Pulse Oximetry [ Assessment] 11/24/16 11/24/16 11/24/16 04:45 05:00 05:15 Temperature Pulse Rate 117 H 116 H 106 H Pulse Rate [ From Monitor] Pulse Rate [ Left Dorsalis Pedis] Pulse Rate [ Left Radial] Pulse Rate [ Right Radial] Respiratory 18 18 17 Rate Blood Pressure 129/70 125/72 125/72 O2 Sat by Pulse 100 100 100 Oximetry O2 Sat by Pulse Oximetry [ Assessment] 11/24/16 11/24/16 11/24/16 05:31 05:45 06:00 Temperature Pulse Rate 108 H 105 H 103 H Pulse Rate [ From Monitor] Pulse Rate [ Left Dorsalis Pedis] Pulse Rate [ Left Radial] Pulse Rate [ Right Radial] Respiratory 18 18 18 Rate Blood Pressure 129/70 129/70 130/75 O2 Sat by Pulse 100 100 100 Oximetry O2 Sat by Pulse Oximetry [ Assessment] 11/24/16 11/24/16 11/24/16 06:15 06:26 06:31 Temperature Pulse Rate 104 H 126 H 98 H Pulse Rate [ From Monitor] Pulse Rate [ Left Dorsalis Pedis] Pulse Rate [ Left Radial] Pulse Rate [ Right Radial] Respiratory 18 18 Rate Blood Pressure 130/75 132/65 130/75 O2 Sat by Pulse 100 100 Oximetry O2 Sat by Pulse Oximetry [ Assessment] 11/24/16 11/24/16 11/24/16 06:45 07:01 07:15 Temperature Pulse Rate 110 H 113 H 112 H Pulse Rate [ From Monitor] Pulse Rate [ Left Dorsalis Pedis] Pulse Rate [ Left Radial] Pulse Rate [ Right Radial] Respiratory 18 15 22 Rate Blood Pressure 130/75 149/87 149/87 O2 Sat by Pulse 100 99 100 Oximetry O2 Sat by Pulse Oximetry [ Assessment] 11/24/16 11/24/16 07:31 07:33 Temperature Pulse Rate 117 H 116 H Pulse Rate [ From Monitor] Pulse Rate [ Left Dorsalis Pedis] Pulse Rate [ Left Radial] Pulse Rate [ Right Radial] Respiratory 19 Rate Blood Pressure 130/75 149/87 O2 Sat by Pulse 100 100 Oximetry O2 Sat by Pulse 100 Oximetry [ Assessment] - Lab 11/24/16 08:08 11/23/16 04:06 Most recent lab results Calcium 8.5 mg/dL (8.4-10.2) 11/23/16 04:06 Phosphorus 4.00 mg/dL (2.5-4.5) 11/23/16 04:06 Magnesium 1.60 mg/dL (1.7-2.3) L 11/23/16 04:06 Urine Creatinine 19.7 mg/dL (0.1-20.0) 11/12/16 10:18 Urine Sodium 36 mEq/L 09/16/16 19:19 Urine Total Protein 16 mg/dL (5-11.8) H 09/16/16 19:19
[2016-11-24 08:41] LABS: Calcium 8.2 mg/dL (8.4-10.2)
[2016-11-24] MEDS ORDERED: NACL 0.9% 500 ML 500 ML IV NR (08:48)
--- NOTE | 2016-11-24 10:12 | Progress Note ---
Assessment and Plan Assessment and plan: Patient is 46-year-old woman with a history of hypertension, diabetes, asthma, hyperlipidemia, chronic kidney disease and anxiety , who was brought in by family because, she couldn't get her words out, her face was also twisted, she was admitted for acute CVA and accelerated hypertension, she had a hx of poor adherence with her medications, and uncontrolled htn. Patient's SBP on admission was noted be greater than 260. TPA was started but this was discontinued after 5 minutes because her blood pressure became uncontrolled. The TPA was not initiated again because the patient was outside the TPA window. Status post cardiac arrest yesterday, 11/21 Received CPR and attained ROSC, vitals stable, glucose stable, chest x-ray improving, labs stable -Most likely related to aspiration as cardiac arrest happened shortly after the patient had emesis Fever She continues to have fevers. ID Physician was following but has signed off. Re-consult ID Physician. I discussed case with her Catheter site was growing multiple organisms, and she had completed Antibiotics s/p R thoracentesis on 11/14, 240cc of serous fluid removed, cx of fluid was negative Stool negative for C. difficile -Severe Sepsis with septic shock, recurrent. Patient with multiple episodes of sepsis. Initial episode due to presumed aspiration pneumonia and septic episode on 09/23 from candidemia then a third episode from peritonitis from gastric perforation from dislodged PEG , there was an abscess in the abdomen present at that time that was draining pus. +/-UTI. The latest episode was related to surgical site infection. Antibiotics discontinued Surgical wound infection/gram-negative sepsis/candidemia/peritonitis PEG has been removed She will need to be on tube feeds through NG tube for a month, and then either a gastrostomy or jejunostomy tube replaced after her GI wounds have healed and infection is cleared -continue wound care to ostomy sites JUANITA, now ESRD Likely due to vasomotor nephropathy and ATN given sepsis Nephrology input appreciated, continue hemodialysis as per Nephrolog Acute CVA with infarct. sp TPA Continue neuro checks. Neurology input appreciated, CT shows continued evolution of left MCA infarct with slight mass effect and edema, and there is no hemorrhage - PRINCE showed hyperdynamic with ef of 75%, neither clot nor septal defect seen - MRA Brain shows near complete occlusion of M2 and M3 of the left MCA - Repeat CT scan done on 09/11, shows stable findings - carotid doppler negative - Echo shows preserved systolic function but does show some left ventricular diastolic dysfunction - continue asa and statin for secondary ppx Persistent vegetative state This patient's needs placement at SNF -She was denied for LTACH Acute hypoxic respiratory failure requiring MV >96hrs Status post tracheostomy, was on T piece now put back on Vent yesterday after cardiac arrest Nosocomial acquired aspiration pneumonia/sepsis/UTI She had completed a course of antibiotics. Asthma/COPD exacerbation Now has trach Acute Toxic Metabolic encephalopathy. Multitifactorial, mostly secondary to evolution of CVA Hypertensive Emergency continue BP meds Bilateral pleural effusion, s/p right thoracentesis 11/14 fluid analysis cw transudate Paroxysmal atrial fibrillation with rapid ventricular rate and hyper-coaguable state , failed cardioversion Continue current medications, Not a candidate for anticoagulation secondary to anemia, thrombocytopenia, and massive CVA Hypokalemia/Hypomagnesemia/hypophosphatemia. Replete electrolytes as needed. magnesium 1.6. Will give 3g magnesium sulfate Diabetes type 2. Continue sliding-scale regular insulin and Accu-Cheks. Hyperlipidemia. Continue statin Nutrition continue tube feeds Anemia requiring multiple transfusions/acute blood loss Has received total 13 units of PRBC this admission. Will continue to transfuse to keep Hemoglobin above 7 Hemoglobin 6.8 today. will transfuse 1 Unit PRBC and recheck tomorrow. Her POA is her Brother, Jam [phone] Hospitalist discussed code status and very poor prognosis with family, but they still want full code status Disposition. Very poor prognosis. Plan is for SNF placement. She was denied by LTAC The high probability of a clinically significant, sudden or life threatening deterioration of the [4] system(s) required my full and direct attention, intervention and personal management. The aggregate critical care time was [32] minutes. This time is in addition to time spent performing reported procedures but includes the following: [x] Data Review and interpretation [x] Patient assessment and monitoring of vital signs [x] Documentation [x] Medication orders and management History Interval history: Patient has had a prolonged stay. She had cardiac arrest 3 days ago,was resuscitated and then transferred to ICU Still having fever Hospitalist Physical - Physical exam Narrative exam: Gen appearance: Trach, not in acute distress, on Ventilator HEENT: Atraumatic Neck: Tracheostomy Lungs: Coarse breath sounds bilaterally, no crackles or wheezes Heart :S1 and S2 irregular, rapid,no murmurs, rubs or gallop Abdomen: Soft, non tender, nod distended, ostomy bags, bowel sounds present Extremities : bilateral edema, upper and lower ext Neuro: Eyes open, Does not follow commands,no purposeful movement - Constitutional Vitals: Temp Pulse Resp BP Pulse Ox 97.8 F 117 H 18 150/88 99 11/24/16 08:00 11/24/16 09:00 11/24/16 09:00 11/24/16 09:00 11/24/16 09:00 General appearance: Present: no acute distress Results - Labs CBC & Chem 7: 11/24/16 08:08 11/24/16 08:08 Labs: Laboratory Last Values WBC 11.2 K/mm3 (4.5-11.0) H 11/24/16 08:08 RBC 2.47 M/mm3 (3.65-5.03) L 11/24/16 08:08 Hgb 6.8 gm/dl (10.1-14.3) L 11/24/16 08:08 Hct 20.6 % (30.3-42.9) L 11/24/16 08:08 MCV 84 fl (79-97) 11/24/16 08:08 MCH 28 pg (28-32) 11/24/16 08:08 MCHC 33 % (30-34) 11/24/16 08:08 RDW 17.0 % (13.2-15.2) H 11/24/16 08:08 Plt Count 272 K/mm3 (140-440) 11/24/16 08:08 Lymph % (Auto) 22.4 % (13.4-35.0) 11/24/16 08:08 [place] % (Auto) 10.3 % (0.0-7.3) H 11/24/16 08:08 Eos % (Auto) 0.5 % (0.0-4.3) 11/24/16 08:08 Baso % (Auto) 0.1 % (0.0-1.8) 11/24/16 08:08 Lymph # 2.5 K/mm3 (1.2-5.4) 11/24/16 08:08 [place] # 1.2 K/mm3 (0.0-0.8) H 11/24/16 08:08 Eos # 0.1 K/mm3 (0.0-0.4) 11/24/16 08:08 Baso # 0.0 K/mm3 (0.0-0.1) 11/24/16 08:08 Add Manual Diff Complete 11/22/16 05:00 Total Counted 100 11/22/16 05:00 Seg Neutrophils % 66.7 % (40.0-70.0) 11/24/16 08:08 Seg Neuts % (Manual) 52.0 % (40.0-70.0) 11/22/16 05:00 Band Neutrophils % 37.0 % 11/22/16 05:00 Lymphocytes % (Manual) 7.0 % (13.4-35.0) L 11/22/16 05:00 Reactive Lymphs % (Man) 0 % 11/22/16 05:00 Monocytes % (Manual) 0 % (0.0-7.3) 11/22/16 05:00 Eosinophils % (Manual) 1.0 % (0.0-4.3) 11/22/16 05:00 Basophils % (Manual) 0 % (0.0-1.8) 11/21/16 07:45 Metamyelocytes % 1.0 % 11/22/16 05:00 Myelocytes % 2.0 % 11/22/16 05:00 Promyelocytes % 0 % 11/22/16 05:00 Blast Cells % 0 % 11/22/16 05:00 Nucleated RBC % Not Reportable 11/22/16 05:00 Seg Neutrophils # 7.4 K/mm3 (1.8-7.7) 11/24/16 08:08 Seg Neutrophils # Man 15.4 K/mm3 (1.8-7.7) H 11/22/16 05:00 Band Neutrophils # 11.0 K/mm3 11/22/16 05:00 Lymphocytes # (Manual) 2.1 K/mm3 (1.2-5.4) 11/22/16 05:00 Abs React Lymphs (Man) 0.0 K/mm3 11/22/16 05:00 Monocytes # (Manual) 0.0 K/mm3 (0.0-0.8) 11/22/16 05:00 Eosinophils # (Manual) 0.3 K/mm3 (0.0-0.4) 11/22/16 05:00 Basophils # (Manual) 0.0 K/mm3 (0.0-0.1) 11/22/16 05:00 Metamyelocytes # 0.3 K/mm3 11/22/16 05:00 Myelocytes # 0.6 K/mm3 11/22/16 05:00 Promyelocytes # 0.0 K/mm3 11/22/16 05:00 Blast Cells # 0.0 K/mm3 11/22/16 05:00 Pathologist Review 09/13/16 04:00 WBC Morphology Not Reportable 11/22/16 05:00 Hypersegmented Neuts Not Reportable 11/22/16 05:00 Hyposegmented Neuts Not Reportable 11/22/16 05:00 Hypogranular Neuts Not Reportable 11/22/16 05:00 Smudge Cells Not Reportable 11/22/16 05:00 Toxic Granulation Not Reportable 11/22/16 05:00 Toxic Vacuolation Not Reportable 11/22/16 05:00 Dohle Bodies Not Reportable 11/22/16 05:00 Pelger-Huet Anomaly Not Reportable 11/22/16 05:00 Jasmina Rods Not Reportable 11/22/16 05:00 Platelet Estimate Not Reportable 11/22/16 05:00 Clumped Platelets Not Reportable 11/22/16 05:00 Plt Clumps, EDTA Not Reportable 11/22/16 05:00 Large Platelets Not Reportable 11/22/16 05:00 Giant Platelets Not Reportable 11/22/16 05:00 Platelet Satelliting Not Reportable 11/22/16 05:00 Plt Morphology Comment Not Reportable 11/22/16 05:00 RBC Morphology Not Reportable 11/22/16 05:00 Dimorphic RBCs Not Reportable 11/22/16 05:00 Polychromasia Few 11/22/16 05:00 Hypochromasia Not Reportable 11/22/16 05:00 Poikilocytosis Not Reportable 11/22/16 05:00 Anisocytosis Not Reportable 11/22/16 05:00 Microcytosis Not Reportable 11/22/16 05:00 Macrocytosis Not Reportable 11/22/16 05:00 Spherocytes Not Reportable 11/22/16 05:00 Pappenheimer Bodies Not Reportable 11/22/16 05:00 Sickle Cells Not Reportable 11/22/16 05:00 Target Cells Not Reportable 11/22/16 05:00 Tear Drop Cells Not Reportable 11/22/16 05:00 Ovalocytes Not Reportable 11/22/16 05:00 Stomatocytes Few 10/06/16 03:50 Helmet Cells Not Reportable 11/22/16 05:00 [place] Bodies Not Reportable 11/22/16 05:00 [place] Rings Not Reportable 11/22/16 05:00 Chuck Cells Not Reportable 11/22/16 05:00 Bite Cells Not Reportable 11/22/16 05:00 Crenated Cell Not Reportable 11/22/16 05:00 Elliptocytes Not Reportable 11/22/16 05:00 Acanthocytes (Spur) Not Reportable 11/22/16 05:00 Rouleaux Not Reportable 11/22/16 05:00 Hemoglobin C Crystals Not Reportable 11/22/16 05:00 Schistocytes Not Reportable 11/22/16 05:00 Malaria parasites Not Reportable 11/22/16 05:00 ESR > 140.0 mm/Hr (0-20) 09/08/16 11:48 Jun Bodies Not Reportable 11/22/16 05:00 Hem Pathologist Commnt No 11/22/16 05:00 PT 16.8 Sec. (12.2-14.9) H 11/17/16 03:20 INR 1.37 (0.87-1.13) H 11/17/16 03:20 APTT 33.0 Sec. (24.2-36.6) 10/09/16 03:45 Thrombin Time 16.8 Sec. (15.1-19.6) 09/03/16 00:10 Fibrinogen 750 mg/dl (211-480) H 09/08/16 11:48 Lupus Anticoagulant see below 09/12/16 09:59 LA PTT Baseline See scanned report 09/12/16 09:59 dRVVT Confirm Interp Positive (Negative) H 09/12/16 09:59 dRVVT Screen 50:50 See scanned report 09/12/16 09:59 dRVVT Mix Interpret See scanned report 09/12/16 09:59 Protein C Antigen 122 % (70-140) 09/08/16 15:35 Free Protein S 97 % normal (50-147) 09/08/16 15:35 Total Protein S 109 % (70-140) 09/08/16 15:35 Antithrombin III Ag 100 % (80-120) 09/08/16 15:35 Heparin Anti-Xa, Unfract Negative (Negative) 09/29/16 13:35 Factor V Activity 182 % (65-150) H 09/08/16 15:35 POC ABG pH 7.493 (7.35-7.45) H 11/23/16 03:44 POC ABG pCO2 29.5 (35-45) L 11/23/16 03:44 POC ABG pO2 49 (80-105) L 11/23/16 03:44 POC ABG HCO3 22.7 11/23/16 03:44 POC ABG Total CO2 24 11/23/16 03:44 POC ABG O2 Sat 88 11/23/16 03:44 POC ABG Base Excess -1 11/23/16 03:44 FiO2 40 % 11/23/16 03:44 Sodium 135 mmol/L (137-145) L 11/24/16 08:08 Potassium 3.7 mmol/L (3.6-5.0) 11/24/16 08:08 Chloride 96.3 mmol/L (98-107) L 11/24/16 08:08 Carbon Dioxide 25 mmol/L (22-30) 11/24/16 08:08 Anion Gap 17 mmol/L 11/24/16 08:08 BUN 61 mg/dL (7-17) H 11/24/16 08:08 Creatinine 3.1 mg/dL (0.7-1.2) H 11/24/16 08:08 Estimated GFR 20 ml/min 11/24/16 08:08 BUN/Creatinine Ratio 20 % 11/24/16 08:08 Glucose 79 mg/dL (65-100) 11/24/16 08:08 POC Glucose 76 (70-105) 11/24/16 07:42 Osmolality 351 Mosm/kg 09/16/16 11:47 Lactic Acid 4.50 mmol/L (0.7-2.0) H* 09/28/16 07:25 Calcium 8.2 mg/dL (8.4-10.2) L 11/24/16 08:08 Phosphorus 4.00 mg/dL (2.5-4.5) 11/23/16 04:06 Magnesium 1.60 mg/dL (1.7-2.3) L 11/23/16 04:06 Total Bilirubin 0.20 mg/dL (0.1-1.2) 11/06/16 06:25 Direct Bilirubin 0.3 mg/dL (0-0.2) H 10/10/16 05:00 Indirect Bilirubin 0.1 mg/dL 10/10/16 05:00 AST 103 units/L (5-40) H 11/06/16 06:25 ALT 77 units/L (7-56) H 11/06/16 06:25 Alkaline Phosphatase 285 units/L (35-129) H 11/06/16 06:25 Ammonia 27.0 umol/L (25-60) 09/07/16 08:37 Lactate Dehydrogenase 196 units/L (91-180) H 11/11/16 06:59 Total Creatine Kinase 121 units/L (30-135) 09/29/16 20:12 CK-MB (CK-2) < 1.0 ng/mL (0.0-4.0) 09/29/16 20:12 CK-MB (CK-2) Rel Index 0.8 (0-4) 09/29/16 20:12 Troponin T 0.204 ng/mL (0.00-0.029) H* 09/29/16 20:12 C-Reactive Protein 11.40 mg/dL (0.00-1.30) H 11/05/16 13:25 Total Protein 6.1 g/dL (6.3-8.2) L 11/11/16 06:59 Albumin 1.8 g/dL (3.9-5) L 11/06/16 06:25 Albumin/Globulin Ratio 0.4 % 11/06/16 06:25 Prealbumin 0.180 g/L (0.200-0.400) L 11/06/16 06:25 Triglycerides 137 mg/dL (2-149) 09/29/16 20:12 Cholesterol 31 mg/dL (50-199) L 09/29/16 20:12 LDL Cholesterol Direct 4 mg/dL (50-130) L 09/29/16 20:12 HDL Cholesterol 3 mg/dL (40-59) L 09/29/16 20:12 Cholesterol/HDL Ratio 10.33 % 09/29/16 20:12 Angiotensin Convert Enz See scanned report 09/08/16 11:48 Renin 0.99 ng/mL/h (0.25-5.82) 10/07/16 10:56 Aldosterone <1 ng/dL () 10/07/16 10:56 Aldosterone/Renin Dir see below 10/07/16 10:56 Serotonin Release Assay See scanned report 09/29/16 13:35 TSH 1.010 mlU/mL (0.270-4.200) 09/07/16 08:37 HCG, Qual Negative (Negative) 09/03/16 00:10 Urine Color Yellow (Yellow) 11/05/16 13:09 Urine Turbidity Clear (Clear) 11/05/16 13:09 Urine pH 9.0 (5.0-7.0) H 11/05/16 13:09 Ur Specific [place] 1.011 (1.003-1.030) 11/05/16 13:09 Urine Protein 100 mg/dl mg/dL (Negative) 11/05/16 13:09 Urine Glucose (UA) Neg mg/dL (Negative) 11/05/16 13:09 Urine Ketones Neg mg/dL (Negative) 11/05/16 13:09 Urine Blood Neg (Negative) 11/05/16 13:09 Urine Nitrite Neg (Negative) 11/05/16 13:09 Urine Bilirubin Neg (Negative) 11/05/16 13:09 Urine Urobilinogen < 2.0 mg/dL (<2.0) 11/05/16 13:09 Ur Leukocyte Esterase Neg (Negative) 11/05/16 13:09 Urine WBC (Auto) 4.0 /HPF (0.0-6.0) 11/05/16 13:09 Urine RBC (Auto) 1.0 /HPF (0.0-6.0) 11/05/16 13:09 U Epithel Cells (Auto) 1.0 /HPF (0-13.0) 10/07/16 18:30 Urine Bacteria (Auto) 4+ /HPF (Negative) 11/05/16 13:09 Urine WBC Clumps 2+ /HPF 09/07/16 02:47 Hyaline Casts 4 /LPF 09/07/16 02:47 Urine Mucus Few /HPF 10/07/16 18:30 Urine Yeast (Budding) 3+ /HPF 10/07/16 18:30 Urine Eosinophils None seen (None Seen) 09/07/16 16:00 Urine Total Volume 950 11/12/16 10:18 Urine Creatinine 19.7 mg/dL (0.1-20.0) 11/12/16 10:18 Height (in) 65.0 inches 11/12/16 10:18 Weight (lb) 181.0 lbs 11/12/16 10:18 Creatinine Clearance 5 11/12/16 10:18 Urine Sodium 36 mEq/L 09/16/16 19:19 Urine Total Protein 16 mg/dL (5-11.8) H 09/16/16 19:19 Fluid Total Protein < 3.0 (15.0-45.0) L 11/10/16 14:20 Fluid LDH 123 11/10/16 14:20 Vancomycin Trough 2.3 ug/mL (5.0-20.0) L 09/21/16 13:00 Random Vancomycin 24.7 ug/mL (0-40.0) 11/12/16 04:00 Urine Opiates Screen Presumptive negative 09/03/16 15:11 Urine Methadone Screen Presumptive positive 09/03/16 15:11 Ur Barbiturates Screen Presumptive positive 09/03/16 15:11 Ur Phencyclidine Scrn Presumptive negative 09/03/16 15:11 Ur Amphetamines Screen Presumptive negative 09/03/16 15:11 U Benzodiazepines Scrn Presumptive negative 09/03/16 15:11 Urine Cocaine Screen Presumptive negative 09/03/16 15:11 U Marijuana (THC) Screen Presumptive positive 09/03/16 15:11 Drugs of Abuse Note Disclamer 09/03/16 15:11 Rheumatoid Factor 24 IU/ml (0-13) H 09/08/16 11:48 SAHIL Screen Negative (Negative) 09/07/16 09:20 Proteinase 3 (PR3) Ab <1.0 AI (<1.0) 09/07/16 09:20 Myeloperoxidase Ab <1.0 AI (<1.0) 09/07/16 09:20 Sjogren's Antibody <1.0 AI (<1.0) 09/08/16 15:35 Scl-70 Scleroderma Ab <1.0 AI (<1.0) 09/08/16 15:35 Centromere B Antibody <1.0 AI (<1.0) 09/08/16 12:02 Heparin-induced Plt Ab Negative (Negative) 09/29/16 13:35 UF Heparin High Dose 11 % Release 09/29/16 13:35 SUDHIR UFH Low Dose 0.1 6 % Release 09/29/16 13:35 SUDHIR UFH Low Dose 0.5 8 % Release 09/29/16 13:35 Cardiolipid IgG Ab <14 GPL (<=14) 09/12/16 09:59 Cardiolipid IgA Ab <11 APL (<=11) 09/12/16 09:59 Cardiolipid IgM Ab <12 MPL (<=12) 09/12/16 09:59 Complement C3 148 mg/dL (90-180) 09/07/16 09:20 Complement C4 58 mg/dL (16-47) H 09/07/16 09:20 RPR Nonreactive (Nonreactive) 09/08/16 11:48 Hepatitis A IgM Ab Non-reactive (NonReactive) 09/24/16 14:40 Hep Bs Antigen Non-reactive (Negative) 09/24/16 14:40 Hep B Core IgM Ab Non-reactive (NonReactive) 09/24/16 14:40 Hepatitis C Antibody Non-reactive (NonReactive) 09/24/16 14:40 HIV 1&2 Antibody Rapid Non react (Non React) 09/08/16 11:48 HIV P24 Antigen Non react (Non React) 09/08/16 11:48 Miscellaneous Test Flexitest 1 H 11/05/16 13:25 Blood Type A POSITIVE 11/07/16 09:37 Antibody Screen Negative 11/07/16 09:37 DELORIS Antibody Screen Negative 09/25/16 10:30 Crossmatch See Detail 11/07/16 09:37
--- NOTE | 2016-11-24 10:35 | Progress Note ---
Assessment and Plan Assessment: 1) Recurrent SIRS: after recent code ? unclear etiology DDx ? bacteremia from PICC line infection. -CXR neg -Blood cx +Staph 1 of 2) History of Peritonitis: from gastric perforation from dislodged PEG with significant ascites -S/P exlap, repair of gastric perforation with wedge gastrectomy, abdominal washout, drain placement on 10/05. 3) History of Candidemia: -Blood cultures positive for Silvia albicans on 09/23 -Blood cultures positive on 09/25 -Blood cultures negative on 09/30 -PICC line changed on 10/03 -Source ? gastric perf (PEG placed on 09/20) +/- TPN +/- central lines -TTE 10/07 no vegetations -PICC exchanged on 10/03 -fully treated with micafungin for 14 days last day 10/13 4) History CA-UTI s/p gutierrez exchanged 5) Diarrhea - ? etiology ? antibiotic-induced, not better. Multiple Cdiff negative 6) Initial presumed aspiration pneumonia 7) Respiratory failure s/p trach 8) Recent CVA-left MCA CVA 9) Uncontrolled HTN 10) Acute on CKD 11) Extensive back skin peeling ? burn from gastric secretions. Doubt allergic reaction - resolved 12) Severe anemia; ? from GI bleed 13) Recent abdominal wall abscess at surgical site-treated Plan: -repeat blood cx -f/u Staph ID -exchange gutierrez cath -monitor temperature and leukocytosis I will be out of town until 11/29, call me for questions Thank you Dr Ribeiro for your consultation, will follow up with you. Pauline Carias MD Infectious Diseases Specialist [facility] M [phone] O [phone] Subjective Date of service: 11/24/16 Principal diagnosis: Acute resp failure on MVS; S/P Acute CVA; Acute Encephalopathy; JUANITA Interval history: Interval history: Noted low grade fever on 11/21 and 11/22. Remains on the vent via trach. S/P recent code on 11/21 and was transiently on pressors. Microbiology: Blood cultures: 09/13 neg / Silvia albicans 09/25 Silvia 09/29 neg 10/07 neg 11/05 neg 11/07 ngtd 11/22 GPC 1 of 4 bottles Urine cultures: 09/10 neg 09/13 neg 09/23 10-100K mixed species 10/07 neg 11/05 VRE 11/07 mixed bacteria Respiratory cultures: 09/07 neg 09/13 neg 09/23 neg 11/07 MDR Pseudomonas 11/21 tracheal + Enterococcus Wound cultures: 10/17 abd wall wound purulence + Pseudomonas MDR Stool cultures: cath tip 11/07 + SLP TEACHER Current Antimicrobials: vanco 11/23 Previous Antimicrobials: Zosyn 10/07 Vancomycin PO 10/01 Metronidazole 09/25 Micafungin 09/27-10/13 Meropenem 10/10 Vanco 10/17 zosyn 10/21 Cefepime 11/10 vancomyin 11/07 fluconazole 10/19 cefepime 10/29levaquin 11/05 Objective - Exam Narrative Exam: General appearance: somnolent, non communicative, on the vent via trach no following commands Eyes: anicteric sclera, moist conjunctivae; PERRLA HENT: Atraumatic; oropharynx limited; Normal external ears. +NGT with greenish secretion Neck: +trach in place; supple, no thyromegaly or lymphadenopathy Lungs: CTA CV: tachycardic Abdomen: Soft, non-tender, +old PEG site no drainage. +iliostomy. Right sided Surgical site x 2 with ostomy bag draining large amount yellowish secretion Extremities: +peripheral edema no extremity lymphadenopathy Skin: sacral area wounds superficial no purulence Psych: somnolent . Neuro: alert non verbal on the vent. Lines: left arm PICC placed on 10/03 - Constitutional Vitals: Vital Signs Temp Pulse Resp BP Pulse Ox 97.8 F 117 H 18 150/88 99 11/24/16 08:00 11/24/16 09:00 11/24/16 09:00 11/24/16 09:00 11/24/16 09:00 Temperature -Last 24 Hours Temperature 97.8 F Temperature 98.5 F Temperature 98.2 F Temperature 98.2 F Temperature 98.6 F Temperature 98.6 F - Labs CBC & Chem 7: 11/24/16 08:08 11/24/16 08:08 Labs: Abnormal lab results 11/23/16 11/24/16 11/24/16 Range/Units 11:29 06:39 06:43 WBC (4.5-11.0) K/mm3 RBC (3.65-5.03) M/mm3 Hgb (10.1-14.3) gm/dl Hct (30.3-42.9) % RDW (13.2-15.2) % [place] % (Auto) (0.0-7.3) % [place] # (0.0-0.8) K/mm3 Sodium (137-145) mmol/L Chloride (98-107) mmol/L BUN (7-17) mg/dL Creatinine (0.7-1.2) mg/dL POC Glucose 69 L 305 H 62 L (70-105) Calcium (8.4-10.2) mg/dL 11/24/16 11/24/16 Range/Units 08:08 08:08 WBC 11.2 H (4.5-11.0) K/mm3 RBC 2.47 L (3.65-5.03) M/mm3 Hgb 6.8 L (10.1-14.3) gm/dl Hct 20.6 L (30.3-42.9) % RDW 17.0 H (13.2-15.2) % [place] % (Auto) 10.3 H (0.0-7.3) % [place] # 1.2 H (0.0-0.8) K/mm3 Sodium 135 L (137-145) mmol/L Chloride 96.3 L (98-107) mmol/L BUN 61 H (7-17) mg/dL Creatinine 3.1 H (0.7-1.2) mg/dL POC Glucose (70-105) Calcium 8.2 L (8.4-10.2) mg/dL
[2016-11-24] MEDS: QUESTRAN PO SCH (10:44)
[2016-11-24] MEDS: PROTONIX FEEDTUBE SCH (10:44)
[2016-11-24] MEDS: NORVASC PO SCH (10:44)
--- NOTE | 2016-11-24 10:59 | Progress Note ---
Assessment and Plan - Patient Problems (1) Acute respiratory failure with hypoxia Current Visit: Yes Status: Acute (2) Dislodged gastrostomy tube Current Visit: Yes Status: Acute Plan to address problem: continue supportive care and wound care No surgical intervention required currently we will sign-off Please re-consult when stabilized and wounds healed for consideration of replacement of PEG tube Subjective Date of service: 11/24/16 Patient Reports: Positive: other (remains unresponsive and on ventilator) Objective Vital Signs - 12hr 11/23/16 11/23/16 11/23/16 23:01 23:15 23:25 Temperature Pulse Rate 118 H 120 H 123 H Pulse Rate [ From Monitor] Pulse Rate [ Left Dorsalis Pedis] Pulse Rate [ Left Radial] Pulse Rate [ Right Radial] Respiratory 21 16 Rate Blood Pressure 156/97 156/97 184/102 O2 Sat by Pulse 98 99 Oximetry O2 Sat by Pulse Oximetry [ Assessment] 11/23/16 11/23/16 11/23/16 23:31 23:45 23:47 Temperature Pulse Rate 117 H 112 H 108 H Pulse Rate [ From Monitor] Pulse Rate [ Left Dorsalis Pedis] Pulse Rate [ Left Radial] Pulse Rate [ Right Radial] Respiratory 14 17 18 Rate Blood Pressure 154/93 154/93 154/93 O2 Sat by Pulse 100 100 100 Oximetry O2 Sat by Pulse Oximetry [ Assessment] 11/23/16 11/24/16 11/24/16 23:56 00:00 00:15 Temperature 98.2 F Pulse Rate 121 H 114 H Pulse Rate [ 118 H From Monitor] Pulse Rate [ 118 H Left Dorsalis Pedis] Pulse Rate [ 118 H Left Radial] Pulse Rate [ 118 H Right Radial] Respiratory 15 15 11 L Rate Blood Pressure 180/103 159/101 O2 Sat by Pulse 100 100 100 Oximetry O2 Sat by Pulse 100 Oximetry [ Assessment] 11/24/16 11/24/16 11/24/16 00:31 00:39 00:44 Temperature Pulse Rate 117 H 100 H 112 H Pulse Rate [ From Monitor] Pulse Rate [ Left Dorsalis Pedis] Pulse Rate [ Left Radial] Pulse Rate [ Right Radial] Respiratory 16 Rate Blood Pressure 159/101 154/93 156/78 O2 Sat by Pulse 100 100 Oximetry O2 Sat by Pulse Oximetry [ Assessment] 11/24/16 11/24/16 11/24/16 00:45 01:00 01:15 Temperature Pulse Rate 120 H 119 H 119 H Pulse Rate [ From Monitor] Pulse Rate [ Left Dorsalis Pedis] Pulse Rate [ Left Radial] Pulse Rate [ Right Radial] Respiratory 15 18 18 Rate Blood Pressure 159/101 152/89 152/89 O2 Sat by Pulse 100 97 100 Oximetry O2 Sat by Pulse Oximetry [ Assessment] 11/24/16 11/24/16 11/24/16 01:31 01:45 02:00 Temperature Pulse Rate 121 H 119 H 120 H Pulse Rate [ From Monitor] Pulse Rate [ Left Dorsalis Pedis] Pulse Rate [ Left Radial] Pulse Rate [ Right Radial] Respiratory 12 17 15 Rate Blood Pressure 152/89 152/89 137/88 O2 Sat by Pulse 100 100 99 Oximetry O2 Sat by Pulse Oximetry [ Assessment] 11/24/16 11/24/16 11/24/16 02:15 02:31 02:45 Temperature Pulse Rate 119 H 119 H 122 H Pulse Rate [ From Monitor] Pulse Rate [ Left Dorsalis Pedis] Pulse Rate [ Left Radial] Pulse Rate [ Right Radial] Respiratory 17 19 17 Rate Blood Pressure 137/88 137/88 137/88 O2 Sat by Pulse 100 100 100 Oximetry O2 Sat by Pulse Oximetry [ Assessment] 11/24/16 11/24/16 11/24/16 03:00 03:15 03:31 Temperature Pulse Rate 127 H 127 H 125 H Pulse Rate [ From Monitor] Pulse Rate [ Left Dorsalis Pedis] Pulse Rate [ Left Radial] Pulse Rate [ Right Radial] Respiratory 20 19 17 Rate Blood Pressure 156/84 156/84 156/84 O2 Sat by Pulse 100 100 100 Oximetry O2 Sat by Pulse Oximetry [ Assessment] 11/24/16 11/24/16 11/24/16 03:45 04:00 04:10 Temperature 98.5 F Pulse Rate 122 H 123 H 100 H Pulse Rate [ From Monitor] Pulse Rate [ Left Dorsalis Pedis] Pulse Rate [ Left Radial] Pulse Rate [ Right Radial] Respiratory 17 18 Rate Blood Pressure 156/84 156/84 129/70 O2 Sat by Pulse 98 100 100 Oximetry O2 Sat by Pulse Oximetry [ Assessment] 11/24/16 11/24/16 11/24/16 04:15 04:31 04:45 Temperature Pulse Rate 117 H 120 H 117 H Pulse Rate [ From Monitor] Pulse Rate [ Left Dorsalis Pedis] Pulse Rate [ Left Radial] Pulse Rate [ Right Radial] Respiratory 18 18 18 Rate Blood Pressure 129/70 129/70 129/70 O2 Sat by Pulse 99 100 100 Oximetry O2 Sat by Pulse Oximetry [ Assessment] 11/24/16 11/24/16 11/24/16 05:00 05:15 05:31 Temperature Pulse Rate 116 H 106 H 108 H Pulse Rate [ From Monitor] Pulse Rate [ Left Dorsalis Pedis] Pulse Rate [ Left Radial] Pulse Rate [ Right Radial] Respiratory 18 17 18 Rate Blood Pressure 125/72 125/72 129/70 O2 Sat by Pulse 100 100 100 Oximetry O2 Sat by Pulse Oximetry [ Assessment] 11/24/16 11/24/16 11/24/16 05:45 06:00 06:15 Temperature Pulse Rate 105 H 103 H 104 H Pulse Rate [ From Monitor] Pulse Rate [ Left Dorsalis Pedis] Pulse Rate [ Left Radial] Pulse Rate [ Right Radial] Respiratory 18 18 18 Rate Blood Pressure 129/70 130/75 130/75 O2 Sat by Pulse 100 100 100 Oximetry O2 Sat by Pulse Oximetry [ Assessment] 11/24/16 11/24/16 11/24/16 06:26 06:31 06:45 Temperature Pulse Rate 126 H 98 H 110 H Pulse Rate [ From Monitor] Pulse Rate [ Left Dorsalis Pedis] Pulse Rate [ Left Radial] Pulse Rate [ Right Radial] Respiratory 18 18 Rate Blood Pressure 132/65 130/75 130/75 O2 Sat by Pulse 100 100 Oximetry O2 Sat by Pulse Oximetry [ Assessment] 11/24/16 11/24/16 11/24/16 07:01 07:15 07:31 Temperature Pulse Rate 113 H 112 H 117 H Pulse Rate [ From Monitor] Pulse Rate [ Left Dorsalis Pedis] Pulse Rate [ Left Radial] Pulse Rate [ Right Radial] Respiratory 15 22 19 Rate Blood Pressure 149/87 149/87 130/75 O2 Sat by Pulse 99 100 100 Oximetry O2 Sat by Pulse 100 Oximetry [ Assessment] 11/24/16 11/24/16 11/24/16 07:33 07:45 08:00 Temperature 97.8 F Pulse Rate 116 H 128 H 125 H Pulse Rate [ 118 H From Monitor] Pulse Rate [ Left Dorsalis Pedis] Pulse Rate [ Left Radial] Pulse Rate [ Right Radial] Respiratory 19 19 Rate Blood Pressure 149/87 130/75 189/107 O2 Sat by Pulse 100 100 100 Oximetry O2 Sat by Pulse Oximetry [ Assessment] 11/24/16 11/24/16 11/24/16 08:15 08:31 08:45 Temperature Pulse Rate 120 H 118 H 124 H Pulse Rate [ From Monitor] Pulse Rate [ Left Dorsalis Pedis] Pulse Rate [ Left Radial] Pulse Rate [ Right Radial] Respiratory 18 18 18 Rate Blood Pressure 194/98 159/85 159/85 O2 Sat by Pulse 100 100 100 Oximetry O2 Sat by Pulse Oximetry [ Assessment] 11/24/16 09:00 Temperature Pulse Rate 117 H Pulse Rate [ From Monitor] Pulse Rate [ Left Dorsalis Pedis] Pulse Rate [ Left Radial] Pulse Rate [ Right Radial] Respiratory 18 Rate Blood Pressure 150/88 O2 Sat by Pulse 99 Oximetry O2 Sat by Pulse Oximetry [ Assessment] - Abdomen soft, other (still draining from port sites and G tube site) - Labs 11/24/16 08:08 11/24/16 08:08 Diabetes panel 11/24/16 Range/Units 08:08 Sodium 135 L (137-145) mmol/L Potassium 3.7 (3.6-5.0) mmol/L Chloride 96.3 L (98-107) mmol/L Carbon Dioxide 25 (22-30) mmol/L BUN 61 H (7-17) mg/dL Creatinine 3.1 H (0.7-1.2) mg/dL Glucose 79 (65-100) mg/dL Calcium 8.2 L (8.4-10.2) mg/dL Calcium panel 11/24/16 Range/Units 08:08 Calcium 8.2 L (8.4-10.2) mg/dL Pituitary panel 11/24/16 Range/Units 08:08 Sodium 135 L (137-145) mmol/L Potassium 3.7 (3.6-5.0) mmol/L Chloride 96.3 L (98-107) mmol/L Carbon Dioxide 25 (22-30) mmol/L BUN 61 H (7-17) mg/dL Creatinine 3.1 H (0.7-1.2) mg/dL Glucose 79 (65-100) mg/dL Calcium 8.2 L (8.4-10.2) mg/dL Adrenal panel 11/24/16 Range/Units 08:08 Sodium 135 L (137-145) mmol/L Potassium 3.7 (3.6-5.0) mmol/L Chloride 96.3 L (98-107) mmol/L Carbon Dioxide 25 (22-30) mmol/L BUN 61 H (7-17) mg/dL Creatinine 3.1 H (0.7-1.2) mg/dL Glucose 79 (65-100) mg/dL Calcium 8.2 L (8.4-10.2) mg/dL
[2016-11-24] MEDS: HEPARIN SUB-Q SCH ×2 (11:00→21:46)
[2016-11-24] MEDS: APRESOLINE IV PRN ×3 (12:15→19:58)
[2016-11-24] MEDS ORDERED: MAGNESIUM SULFATE 3 GM in NACL 0.9% 100 ML IV ONE (17:41)
[2016-11-24] MEDS: MORPHINE IV PRN ×2 (19:58→22:52)
[2016-11-24] MEDS ORDERED: TPN ADULT 2,016 ML IV SCH (20:00)
--- NOTE | 2016-11-24 22:13 | Progress Note ---
Assessment and Plan 46-year-old woman with a history of hypertension, diabetes, asthma, hyperlipidemia, chronic kidney disease and anxiety , who was brought in by family because, she couldn't get her words out, her face was also twisted, she was admitted for acute CVA and accelerated hypertension, she had a hx of poor adherence with her medications, and uncontrolled htn. Patient's SBP on admission was noted be greater than 260. TPA was started but this was discontinued after 5 minutes because her blood pressure became uncontrolled. The TPA was not initiated again because the patient was outside the TPA window. Acute hypoxic respiratory failure requiring MV >96hrs Status post tracheostomy, back on full mechanical ventilatory support s/p PEA arrest with ROSC. VAP bundle addressed. Continue with daily SBTs as tolerated VTE prophylaxis Stress ulcer prophylaxis Aspiration precautions HOB>40 Lung protective strategies -Severe Sepsis with septic shock, recurrent. Patient with multiple episodes of sepsis. Initial episode due to presumed aspiration pneumonia and septic episode on 09/23 from candidemia then a third episode from peritonitis from gastric perforation from dislodged PEG , there was an abscess in the abdomen present at that time that was draining pus. +/-UTI. Leukocytosis CT abdomen done post code to evaluate for worsening leukocytosis.... probable fistula sp R thoracentesis on 11/14, 240cc of serous fluid removed, cx of fluid was negative Intra abdominal fistula ID following Surgical wound infection/gram-negative sepsis/candidemia/peritonitis -TPN for nutritional support -Promotility agents today, monitor response. No further episodes of vomiting this morning -continue wound care to ostomy sites -Bowel regimen JUANITA, now ESRD Likely due to vasomotor nephropathy and ATN given sepsis Nephrology input appreciated Acute CVA with infarct. sp TPA Continue neuro checks. Neurology input appreciated, CT shows continued evolution of left MCA infarct with slight mass effect and edema, and there is no hemorrhage - PRINCE showed hyperdynamic with ef of 75%, neither clot nor septal defect seen - MRA Brain shows near complete occlusion of M2 and M3 of the left MCA - Repeat CT scan done on 09/11, shows stable findings - carotid doppler negative - Echo shows preserved systolic function but does show some left ventricular diastolic dysfunction - continue asa and statin for secondary ppx Paroxysmal atrial fibrillation. On Metoprolol Persistent vegetative state This patient's needs placement at either hospice or SNF -She was denied for LTACH Nosocomial acquired aspiration pneumonia/sepsis/UTI She had completed a course of antibiotics. Being monitored off antibiotics Asthma/COPD exacerbation s/p trach Continue bronchodilators Acute Toxic Metabolic encephalopathy( improved). Multitifactorial, mostly secondary to evolution of CVA Hypertensive Emergency-stable Now on Metoprolol, Cozaar,Hydralazine, Clonidine patch. Bilateral pleural effusion, s/p right thoracentesis Paroxysmal atrial fibrillation with rapid ventricular rate, failed cardioversion Continue current medications, Not a candidate for anticoagulation secondary to anemia, thrombocytopenia, and massive CVA Hypokalemia/Hypomagnesemia/hypophosphatemia. Replete electrolytes as needed. Diabetes type 2. Continue sliding-scale regular insulin and Accu-Cheks. Hyperlipidemia. Continue statin Nutrition continue tube feeds Anemia requiring multiple transfusions/acute blood loss Has received total 13 units of PRBC this admission. Will continue to transfuse to keep Hemoglobin above 7 Disposition. Very poor prognosis. - Patient Problems (1) Acute respiratory failure with hypoxia Current Visit: Yes Status: Acute (2) Acute blood loss anemia Current Visit: Yes Status: Resolved (3) Acute CVA (cerebrovascular accident) Current Visit: Yes Status: Acute (4) Chronic renal insufficiency Current Visit: Yes Status: Acute Qualifiers: Chronic kidney disease stage: C (5) Uncontrolled hypertension Current Visit: Yes Status: Acute (6) Leukocytosis (leucocytosis) Current Visit: Yes Status: Acute Qualifiers: Leukocytosis type: leukemoid reaction Qualified Code(s): D72.823 - Leukemoid reaction (7) Dislodged gastrostomy tube Current Visit: Yes Status: Acute (8) Fungemia Current Visit: Yes Status: Resolved Subjective Date of service: 11/24/16 Principal diagnosis: Acute resp failure on MVS; S/P Acute CVA; Acute Encephalopathy; JUANITA Interval history: Seen and examined. Vitals, labs, medications, chart reviewed. On mechanical ventilatory support Discussed in interdisciplinary rounds Objective - Exam Narrative Exam: GEN: Ill appearing, trach, starring NECK: SUPPLE, trach in place, ngt in place CVS: regular currently NORMAL S1S2 LUNGS/CHEST: NORMAL CHEST EXPANSION B, GOOD AIR ENTRY B ABD: SOFT, NTND, 3 ostomy bags in 3 different locations, GBS, NO REBOUND OR GUARDING EXT/SKIN: NO SIGNIFICANT EDEMA OR RASH MSK: +spontaneous movement NEURO:Awake, alert, unresponsive. Not obeying any commands on a ventilator Vital Signs - 12hr 11/24/16 11/24/16 11/24/16 10:15 10:31 10:45 Temperature Pulse Rate 114 H 114 H 117 H Pulse Rate [ From Monitor] Respiratory 18 15 18 Rate Blood Pressure 142/87 142/87 142/87 O2 Sat by Pulse 100 100 100 Oximetry 11/24/16 11/24/16 11/24/16 11:00 11:15 11:31 Temperature Pulse Rate 113 H 110 H Pulse Rate [ From Monitor] Respiratory 18 18 Rate Blood Pressure 136/94 136/94 136/94 O2 Sat by Pulse 100 100 99 Oximetry 11/24/16 11/24/16 11/24/16 11:40 11:45 12:00 Temperature 98.6 F Pulse Rate 129 H 129 H 119 H Pulse Rate [ 123 H From Monitor] Respiratory 13 17 Rate Blood Pressure 136/94 136/94 171/104 O2 Sat by Pulse 100 100 100 Oximetry 11/24/16 11/24/16 11/24/16 12:15 12:16 12:31 Temperature Pulse Rate 114 H 123 H 113 H Pulse Rate [ From Monitor] Respiratory 18 18 Rate Blood Pressure 174/102 179/108 167/95 O2 Sat by Pulse 100 100 Oximetry 11/24/16 11/24/16 11/24/16 12:45 13:01 13:15 Temperature Pulse Rate 117 H 116 H 113 H Pulse Rate [ From Monitor] Respiratory 18 8 L 17 Rate Blood Pressure 167/95 167/95 167/95 O2 Sat by Pulse 100 100 100 Oximetry 11/24/16 11/24/16 11/24/16 13:31 13:45 14:00 Temperature Pulse Rate 114 H 110 H 117 H Pulse Rate [ From Monitor] Respiratory 12 14 14 Rate Blood Pressure 148/84 148/84 154/86 O2 Sat by Pulse 100 100 100 Oximetry 11/24/16 11/24/16 11/24/16 14:15 14:31 14:45 Temperature Pulse Rate 115 H 113 H 110 H Pulse Rate [ From Monitor] Respiratory 14 16 14 Rate Blood Pressure 154/86 154/86 154/86 O2 Sat by Pulse 100 100 100 Oximetry 11/24/16 11/24/16 11/24/16 15:00 15:15 15:30 Temperature Pulse Rate 118 H 121 H 125 H Pulse Rate [ From Monitor] Respiratory 12 12 19 Rate Blood Pressure 186/95 186/95 184/97 O2 Sat by Pulse 100 100 100 Oximetry 11/24/16 11/24/16 11/24/16 15:37 15:45 15:52 Temperature 98.9 F 97.8 F Pulse Rate 120 H 118 H 123 H Pulse Rate [ From Monitor] Respiratory 18 21 14 Rate Blood Pressure 181/89 183/93 155/67 O2 Sat by Pulse 100 Oximetry 11/24/16 11/24/16 11/24/16 15:57 16:00 16:15 Temperature 98.6 F Pulse Rate 120 H 123 H 125 H Pulse Rate [ 117 H From Monitor] Respiratory 17 18 Rate Blood Pressure 178/83 153/73 153/73 O2 Sat by Pulse 100 100 Oximetry 11/24/16 11/24/16 11/24/16 16:22 16:30 16:45 Temperature 98.8 F Pulse Rate 123 H 127 H 125 H Pulse Rate [ From Monitor] Respiratory 18 18 21 Rate Blood Pressure 147/82 147/82 147/82 O2 Sat by Pulse 100 100 Oximetry 11/24/16 11/24/16 11/24/16 16:52 17:00 17:15 Temperature 98.3 F Pulse Rate 122 H 121 H 121 H Pulse Rate [ From Monitor] Respiratory 16 17 16 Rate Blood Pressure 150/73 150/73 150/73 O2 Sat by Pulse 100 100 100 Oximetry 11/24/16 11/24/16 11/24/16 17:22 17:30 17:45 Temperature 98.6 F Pulse Rate 117 H 119 H 118 H Pulse Rate [ From Monitor] Respiratory 19 21 20 Rate Blood Pressure 148/81 148/81 148/81 O2 Sat by Pulse 100 100 100 Oximetry 11/24/16 11/24/16 11/24/16 18:00 18:15 18:30 Temperature 98.9 F Pulse Rate 117 H 122 H 113 H Pulse Rate [ From Monitor] Respiratory 17 18 18 Rate Blood Pressure 133/79 133/79 137/73 O2 Sat by Pulse 100 100 100 Oximetry 11/24/16 11/24/16 11/24/16 18:45 19:01 19:15 Temperature Pulse Rate 125 H 136 H 121 H Pulse Rate [ From Monitor] Respiratory 16 22 17 Rate Blood Pressure 137/73 200/113 167/95 O2 Sat by Pulse 100 94 100 Oximetry 11/24/16 11/24/16 11/24/16 19:30 19:38 19:45 Temperature Pulse Rate 127 H 130 H 133 H Pulse Rate [ From Monitor] Respiratory 19 20 Rate Blood Pressure 170/102 170/102 170/102 O2 Sat by Pulse 100 100 100 Oximetry 11/24/16 11/24/16 11/24/16 19:58 20:00 20:15 Temperature 98.5 F Pulse Rate 134 H 138 H 130 H Pulse Rate [ From Monitor] Respiratory 18 18 Rate Blood Pressure 190/105 177/106 190/105 O2 Sat by Pulse 100 100 Oximetry 11/24/16 11/24/16 11/24/16 20:28 20:30 20:45 Temperature Pulse Rate 136 H 137 H Pulse Rate [ From Monitor] Respiratory 31 H 18 18 Rate Blood Pressure 176/90 176/90 O2 Sat by Pulse 99 99 Oximetry 11/24/16 11/24/16 11/24/16 21:00 21:15 21:30 Temperature Pulse Rate 139 H 137 H 154 H Pulse Rate [ From Monitor] Respiratory 19 19 19 Rate Blood Pressure 181/93 181/93 172/95 O2 Sat by Pulse 99 99 100 Oximetry 11/24/16 21:55 Temperature Pulse Rate 140 H Pulse Rate [ From Monitor] Respiratory Rate Blood Pressure 166/96 O2 Sat by Pulse Oximetry Constitutional: no acute distress, other (eyes open; tracking movements) Eyes: non-icteric, other (tracheostomy tube in midline of neck) ENT: oropharynx moist Neck: supple, no lymphadenopathy Effort: mildly labored Ascultation: Bilateral: clear, diminished breath sounds (bases), rales, rhonchi (and referred upper airway sounds) Cardiovascular: regular rate and rhythm Gastrointestinal: hypoactive bowel sounds, soft, non-tender, non-distended, other (RLQ stomas with colostomy bags) Integumentary: other (healing back burn-like injury) Extremities: no cyanosis, no edema, pulses normal, no ischemia or petechiae Neurologic: pupils equal and round, other (encephalopathic) Psychiatric: other (unable to assess) CBC and BMP: 12/28/16 04:00 12/29/16 05:15 ABG, PT/INR, D-dimer: ABG POC ABG pH 7.493 (7.35-7.45) H 11/23/16 03:44 POC ABG pCO2 29.5 (35-45) L 11/23/16 03:44 POC ABG pO2 49 (80-105) L 11/23/16 03:44 POC ABG HCO3 22.7 11/23/16 03:44 POC ABG Total CO2 24 11/23/16 03:44 POC ABG O2 Sat 88 11/23/16 03:44 PT/INR, D-dimer PT 16.8 Sec. (12.2-14.9) H 11/17/16 03:20 INR 1.37 (0.87-1.13) H 11/17/16 03:20 Abnormal lab findings: Abnormal Labs 09/03/16 09/03/16 09/03/16 12:12 15:07 16:20 WBC RBC Hgb Hct MCV MCH MCHC RDW Plt Count Lymph % (Auto) [place] % (Auto) Lymph # [place] # Baso # Seg Neutrophils % Seg Neuts % (Manual) Lymphocytes % (Manual) Monocytes % (Manual) Eosinophils % (Manual) Basophils % (Manual) Nucleated RBC % Seg Neutrophils # Seg Neutrophils # Man Lymphocytes # (Manual) Monocytes # (Manual) Eosinophils # (Manual) PT INR Fibrinogen dRVVT Confirm Interp Factor V Activity POC ABG pH 7.452 H POC ABG pCO2 POC ABG pO2 Sodium Potassium Chloride Carbon Dioxide BUN Creatinine Glucose POC Glucose 178 H Lactic Acid Calcium Phosphorus 2.20 L Magnesium 1.60 L Direct Bilirubin AST ALT Alkaline Phosphatase Lactate Dehydrogenase Troponin T C-Reactive Protein Total Protein Albumin Prealbumin Triglycerides Cholesterol LDL Cholesterol Direct HDL Cholesterol Urine pH Urine WBC (Auto) Urine Creatinine Urine Total Protein Fluid Total Protein Vancomycin Trough Rheumatoid Factor Complement C4 Miscellaneous Test Crossmatch 09/03/16 09/03/16 09/03/16 17:57 17:58 23:50 WBC RBC Hgb Hct MCV MCH MCHC RDW Plt Count Lymph % (Auto) [place] % (Auto) Lymph # [place] # Baso # Seg Neutrophils % Seg Neuts % (Manual) Lymphocytes % (Manual) Monocytes % (Manual) Eosinophils % (Manual) Basophils % (Manual) Nucleated RBC % Seg Neutrophils # Seg Neutrophils # Man Lymphocytes # (Manual) Monocytes # (Manual) Eosinophils # (Manual) PT INR Fibrinogen dRVVT Confirm Interp Factor V Activity POC ABG pH POC ABG pCO2 POC ABG pO2 Sodium Potassium Chloride Carbon Dioxide BUN Creatinine Glucose POC Glucose 162 H 145 H Lactic Acid Calcium Phosphorus 2.30 L Magnesium Direct Bilirubin AST ALT Alkaline Phosphatase Lactate Dehydrogenase Troponin T C-Reactive Protein Total Protein Albumin Prealbumin Triglycerides Cholesterol LDL Cholesterol Direct HDL Cholesterol Urine pH Urine WBC (Auto) Urine Creatinine Urine Total Protein Fluid Total Protein Vancomycin Trough Rheumatoid Factor Complement C4 Miscellaneous Test Crossmatch 09/04/16 09/04/16 09/04/16 03:31 03:31 05:42 WBC RBC Hgb 9.7 L D Hct MCV 72 L MCH 23 L MCHC RDW 17.5 H Plt Count Lymph % (Auto) 11.1 L [place] % (Auto) Lymph # [place] # Baso # Seg Neutrophils % 84.3 H Seg Neuts % (Manual) Lymphocytes % (Manual) Monocytes % (Manual) Eosinophils % (Manual) Basophils % (Manual) Nucleated RBC % Seg Neutrophils # 8.9 H Seg Neutrophils # Man Lymphocytes # (Manual) Monocytes # (Manual) Eosinophils # (Manual) PT INR Fibrinogen dRVVT Confirm Interp Factor V Activity POC ABG pH POC ABG pCO2 POC ABG pO2 Sodium 135 L Potassium 2.9 L* Chloride 97.2 L Carbon Dioxide 19 L BUN Creatinine 1.7 H Glucose 170 H POC Glucose 152 H Lactic Acid Calcium Phosphorus Magnesium Direct Bilirubin AST ALT Alkaline Phosphatase Lactate Dehydrogenase Troponin T C-Reactive Protein Total Protein Albumin Prealbumin Triglycerides 160 H Cholesterol LDL Cholesterol Direct HDL Cholesterol 31 L Urine pH Urine WBC (Auto) Urine Creatinine Urine Total Protein Fluid Total Protein Vancomycin Trough Rheumatoid Factor Complement C4 Miscellaneous Test Crossmatch 09/04/16 09/04/16 09/04/16 11:34 17:46 23:29 WBC RBC Hgb Hct MCV MCH MCHC RDW Plt Count Lymph % (Auto) [place] % (Auto) Lymph # [place] # Baso # Seg Neutrophils % Seg Neuts % (Manual) Lymphocytes % (Manual) Monocytes % (Manual) Eosinophils % (Manual) Basophils % (Manual) Nucleated RBC % Seg Neutrophils # Seg Neutrophils # Man Lymphocytes # (Manual) Monocytes # (Manual) Eosinophils # (Manual) PT INR Fibrinogen dRVVT Confirm Interp Factor V Activity POC ABG pH POC ABG pCO2 POC ABG pO2 Sodium Potassium Chloride Carbon Dioxide BUN Creatinine Glucose POC Glucose 165 H 210 H 139 H Lactic Acid Calcium Phosphorus Magnesium Direct Bilirubin AST ALT Alkaline Phosphatase Lactate Dehydrogenase Troponin T C-Reactive Protein Total Protein Albumin Prealbumin Triglycerides Cholesterol LDL Cholesterol Direct HDL Cholesterol Urine pH Urine WBC (Auto) Urine Creatinine Urine Total Protein Fluid Total Protein Vancomycin Trough Rheumatoid Factor Complement C4 Miscellaneous Test Crossmatch 09/05/16 09/05/16 09/05/16 04:05 04:05 05:38 WBC RBC Hgb Hct MCV 76 L D MCH 23 L MCHC RDW 17.8 H Plt Count Lymph % (Auto) [place] % (Auto) Lymph # [place] # Baso # Seg Neutrophils % Seg Neuts % (Manual) Lymphocytes % (Manual) Monocytes % (Manual) Eosinophils % (Manual) Basophils % (Manual) Nucleated RBC % Seg Neutrophils # Seg Neutrophils # Man Lymphocytes # (Manual) Monocytes # (Manual) Eosinophils # (Manual) PT INR Fibrinogen dRVVT Confirm Interp Factor V Activity POC ABG pH POC ABG pCO2 POC ABG pO2 Sodium 134 L Potassium Chloride Carbon Dioxide 18 L BUN Creatinine 1.8 H Glucose 192 H POC Glucose 175 H Lactic Acid Calcium Phosphorus Magnesium Direct Bilirubin AST ALT Alkaline Phosphatase Lactate Dehydrogenase Troponin T C-Reactive Protein Total Protein Albumin Prealbumin Triglycerides Cholesterol LDL Cholesterol Direct HDL Cholesterol Urine pH Urine WBC (Auto) Urine Creatinine Urine Total Protein Fluid Total Protein Vancomycin Trough Rheumatoid Factor Complement C4 Miscellaneous Test Crossmatch 09/05/16 09/05/16 09/05/16 11:38 17:48 23:22 WBC RBC Hgb Hct MCV MCH MCHC RDW Plt Count Lymph % (Auto) [place] % (Auto) Lymph # [place] # Baso # Seg Neutrophils % Seg Neuts % (Manual) Lymphocytes % (Manual) Monocytes % (Manual) Eosinophils % (Manual) Basophils % (Manual) Nucleated RBC % Seg Neutrophils # Seg Neutrophils # Man Lymphocytes # (Manual) Monocytes # (Manual) Eosinophils # (Manual) PT INR Fibrinogen dRVVT Confirm Interp Factor V Activity POC ABG pH POC ABG pCO2 POC ABG pO2 Sodium Potassium Chloride Carbon Dioxide BUN Creatinine Glucose POC Glucose 164 H 186 H 195 H Lactic Acid Calcium Phosphorus Magnesium Direct Bilirubin AST ALT Alkaline Phosphatase Lactate Dehydrogenase Troponin T C-Reactive Protein Total Protein Albumin Prealbumin Triglycerides Cholesterol LDL Cholesterol Direct HDL Cholesterol Urine pH Urine WBC (Auto) Urine Creatinine Urine Total Protein Fluid Total Protein Vancomycin Trough Rheumatoid Factor Complement C4 Miscellaneous Test Crossmatch 09/06/16 09/06/16 09/06/16 04:12 05:59 07:32 WBC RBC Hgb Hct MCV MCH MCHC RDW Plt Count Lymph % (Auto) [place] % (Auto) Lymph # [place] # Baso # Seg Neutrophils % Seg Neuts % (Manual) Lymphocytes % (Manual) Monocytes % (Manual) Eosinophils % (Manual) Basophils % (Manual) Nucleated RBC % Seg Neutrophils # Seg Neutrophils # Man Lymphocytes # (Manual) Monocytes # (Manual) Eosinophils # (Manual) PT INR Fibrinogen dRVVT Confirm Interp Factor V Activity POC ABG pH 7.514 H POC ABG pCO2 29.1 L POC ABG pO2 72 L Sodium 133 L Potassium 3.4 L Chloride 94.9 L Carbon Dioxide 19 L BUN 30 H Creatinine 2.1 H Glucose 139 H POC Glucose 146 H Lactic Acid Calcium Phosphorus Magnesium Direct Bilirubin AST ALT Alkaline Phosphatase Lactate Dehydrogenase Troponin T C-Reactive Protein Total Protein Albumin Prealbumin Triglycerides Cholesterol LDL Cholesterol Direct HDL Cholesterol Urine pH Urine WBC (Auto) Urine Creatinine Urine Total Protein Fluid Total Protein Vancomycin Trough Rheumatoid Factor Complement C4 Miscellaneous Test Crossmatch 09/06/16 09/06/16 09/06/16 11:57 17:58 19:02 WBC RBC Hgb Hct MCV MCH MCHC RDW Plt Count Lymph % (Auto) [place] % (Auto) Lymph # [place] # Baso # Seg Neutrophils % Seg Neuts % (Manual) Lymphocytes % (Manual) Monocytes % (Manual) Eosinophils % (Manual) Basophils % (Manual) Nucleated RBC % Seg Neutrophils # Seg Neutrophils # Man Lymphocytes # (Manual) Monocytes # (Manual) Eosinophils # (Manual) PT INR Fibrinogen dRVVT Confirm Interp Factor V Activity POC ABG pH 7.465 H POC ABG pCO2 32.0 L POC ABG pO2 Sodium Potassium Chloride Carbon Dioxide BUN Creatinine Glucose POC Glucose 165 H 160 H Lactic Acid Calcium Phosphorus Magnesium Direct Bilirubin AST ALT Alkaline Phosphatase Lactate Dehydrogenase Troponin T C-Reactive Protein Total Protein Albumin Prealbumin Triglycerides Cholesterol LDL Cholesterol Direct HDL Cholesterol Urine pH Urine WBC (Auto) Urine Creatinine Urine Total Protein Fluid Total Protein Vancomycin Trough Rheumatoid Factor Complement C4 Miscellaneous Test Crossmatch 09/06/16 09/07/16 09/07/16 23:45 02:47 02:47 WBC RBC Hgb Hct MCV MCH MCHC RDW Plt Count Lymph % (Auto) [place] % (Auto) Lymph # [place] # Baso # Seg Neutrophils % Seg Neuts % (Manual) Lymphocytes % (Manual) Monocytes % (Manual) Eosinophils % (Manual) Basophils % (Manual) Nucleated RBC % Seg Neutrophils # Seg Neutrophils # Man Lymphocytes # (Manual) Monocytes # (Manual) Eosinophils # (Manual) PT INR Fibrinogen dRVVT Confirm Interp Factor V Activity POC ABG pH POC ABG pCO2 POC ABG pO2 Sodium Potassium Chloride Carbon Dioxide BUN Creatinine Glucose POC Glucose 204 H Lactic Acid Calcium Phosphorus Magnesium Direct Bilirubin AST ALT Alkaline Phosphatase Lactate Dehydrogenase Troponin T C-Reactive Protein Total Protein Albumin Prealbumin Triglycerides Cholesterol LDL Cholesterol Direct HDL Cholesterol Urine pH Urine WBC (Auto) 68.0 H Urine Creatinine 106.1 H Urine Total Protein Fluid Total Protein Vancomycin Trough Rheumatoid Factor Complement C4 Miscellaneous Test Crossmatch 09/07/16 09/07/16 09/07/16 04:50 06:19 06:39 WBC RBC Hgb Hct MCV MCH MCHC RDW Plt Count Lymph % (Auto) [place] % (Auto) Lymph # [place] # Baso # Seg Neutrophils % Seg Neuts % (Manual) Lymphocytes % (Manual) Monocytes % (Manual) Eosinophils % (Manual) Basophils % (Manual) Nucleated RBC % Seg Neutrophils # Seg Neutrophils # Man Lymphocytes # (Manual) Monocytes # (Manual) Eosinophils # (Manual) PT INR Fibrinogen dRVVT Confirm Interp Factor V Activity POC ABG pH 7.457 H POC ABG pCO2 32.1 L POC ABG pO2 76 L Sodium 132 L Potassium Chloride 94.7 L Carbon Dioxide BUN 53 H Creatinine 2.9 H Glucose 151 H POC Glucose 149 H Lactic Acid Calcium Phosphorus Magnesium Direct Bilirubin AST ALT Alkaline Phosphatase Lactate Dehydrogenase Troponin T C-Reactive Protein Total Protein Albumin Prealbumin Triglycerides Cholesterol LDL Cholesterol Direct HDL Cholesterol Urine pH Urine WBC (Auto) Urine Creatinine Urine Total Protein Fluid Total Protein Vancomycin Trough Rheumatoid Factor Complement C4 Miscellaneous Test Crossmatch 09/07/16 09/07/16 09/07/16 09:20 11:43 11:43 WBC 19.4 H RBC Hgb 8.3 L Hct 26.4 L D MCV 72 L D MCH 22 L MCHC RDW 17.9 H Plt Count Lymph % (Auto) 8.5 L [place] % (Auto) Lymph # [place] # 1.0 H Baso # Seg Neutrophils % 85.8 H Seg Neuts % (Manual) Lymphocytes % (Manual) Monocytes % (Manual) Eosinophils % (Manual) Basophils % (Manual) Nucleated RBC % Seg Neutrophils # 16.6 H Seg Neutrophils # Man Lymphocytes # (Manual) Monocytes # (Manual) Eosinophils # (Manual) PT INR Fibrinogen dRVVT Confirm Interp Factor V Activity POC ABG pH POC ABG pCO2 POC ABG pO2 Sodium 134 L Potassium Chloride 97.2 L Carbon Dioxide 20 L BUN 58 H Creatinine 2.9 H Glucose 147 H POC Glucose Lactic Acid Calcium Phosphorus 2.40 L Magnesium 2.40 H Direct Bilirubin AST ALT Alkaline Phosphatase Lactate Dehydrogenase Troponin T C-Reactive Protein Total Protein 5.8 L Albumin 2.2 L Prealbumin Triglycerides Cholesterol LDL Cholesterol Direct HDL Cholesterol Urine pH Urine WBC (Auto) Urine Creatinine Urine Total Protein Fluid Total Protein Vancomycin Trough Rheumatoid Factor Complement C4 58 H Miscellaneous Test Crossmatch 09/07/16 09/07/16 09/07/16 11:50 16:00 17:31 WBC RBC Hgb Hct MCV MCH MCHC RDW Plt Count Lymph % (Auto) [place] % (Auto) Lymph # [place] # Baso # Seg Neutrophils % Seg Neuts % (Manual) Lymphocytes % (Manual) Monocytes % (Manual) Eosinophils % (Manual) Basophils % (Manual) Nucleated RBC % Seg Neutrophils # Seg Neutrophils # Man Lymphocytes # (Manual) Monocytes # (Manual) Eosinophils # (Manual) PT INR Fibrinogen dRVVT Confirm Interp Factor V Activity POC ABG pH POC ABG pCO2 POC ABG pO2 158 H Sodium Potassium Chloride Carbon Dioxide BUN Creatinine Glucose POC Glucose 175 H Lactic Acid Calcium Phosphorus Magnesium Direct Bilirubin AST ALT Alkaline Phosphatase Lactate Dehydrogenase Troponin T C-Reactive Protein Total Protein Albumin Prealbumin Triglycerides Cholesterol LDL Cholesterol Direct HDL Cholesterol Urine pH Urine WBC (Auto) Urine Creatinine 66.3 H Urine Total Protein Fluid Total Protein Vancomycin Trough Rheumatoid Factor Complement C4 Miscellaneous Test Crossmatch 09/07/16 09/08/16 09/08/16 23:50 05:46 06:18 WBC 17.8 H RBC 3.58 L Hgb 8.1 L Hct 25.5 L MCV 71 L MCH 23 L MCHC RDW 18.4 H Plt Count Lymph % (Auto) [place] % (Auto) Lymph # [place] # Baso # Seg Neutrophils % Seg Neuts % (Manual) 92.0 H Lymphocytes % (Manual) 6.0 L Monocytes % (Manual) Eosinophils % (Manual) Basophils % (Manual) Nucleated RBC % Seg Neutrophils # Seg Neutrophils # Man 16.4 H Lymphocytes # (Manual) 1.1 L Monocytes # (Manual) Eosinophils # (Manual) PT INR Fibrinogen dRVVT Confirm Interp Factor V Activity POC ABG pH POC ABG pCO2 34.3 L POC ABG pO2 71 L Sodium Potassium Chloride Carbon Dioxide BUN Creatinine Glucose POC Glucose 216 H Lactic Acid Calcium Phosphorus Magnesium Direct Bilirubin AST ALT Alkaline Phosphatase Lactate Dehydrogenase Troponin T C-Reactive Protein Total Protein Albumin Prealbumin Triglycerides Cholesterol LDL Cholesterol Direct HDL Cholesterol Urine pH Urine WBC (Auto) Urine Creatinine Urine Total Protein Fluid Total Protein Vancomycin Trough Rheumatoid Factor Complement C4 Miscellaneous Test Crossmatch 09/08/16 09/08/16 09/08/16 06:18 06:51 10:55 WBC RBC Hgb Hct MCV MCH MCHC RDW Plt Count Lymph % (Auto) [place] % (Auto) Lymph # [place] # Baso # Seg Neutrophils % Seg Neuts % (Manual) Lymphocytes % (Manual) Monocytes % (Manual) Eosinophils % (Manual) Basophils % (Manual) Nucleated RBC % Seg Neutrophils # Seg Neutrophils # Man Lymphocytes # (Manual) Monocytes # (Manual) Eosinophils # (Manual) PT INR Fibrinogen dRVVT Confirm Interp Factor V Activity POC ABG pH POC ABG pCO2 POC ABG pO2 Sodium 133 L Potassium Chloride 96.9 L Carbon Dioxide 20 L BUN 63 H Creatinine 2.7 H Glucose 195 H POC Glucose 204 H 169 H Lactic Acid Calcium Phosphorus Magnesium Direct Bilirubin AST ALT Alkaline Phosphatase Lactate Dehydrogenase Troponin T C-Reactive Protein Total Protein Albumin Prealbumin Triglycerides Cholesterol LDL Cholesterol Direct HDL Cholesterol Urine pH Urine WBC (Auto) Urine Creatinine Urine Total Protein Fluid Total Protein Vancomycin Trough Rheumatoid Factor Complement C4 Miscellaneous Test Crossmatch 09/08/16 09/08/16 09/08/16 11:48 11:48 11:48 WBC RBC Hgb Hct MCV MCH MCHC RDW Plt Count Lymph % (Auto) [place] % (Auto) Lymph # [place] # Baso # Seg Neutrophils % Seg Neuts % (Manual) Lymphocytes % (Manual) Monocytes % (Manual) Eosinophils % (Manual) Basophils % (Manual) Nucleated RBC % Seg Neutrophils # Seg Neutrophils # Man Lymphocytes # (Manual) Monocytes # (Manual) Eosinophils # (Manual) PT INR Fibrinogen 750 H dRVVT Confirm Interp Factor V Activity POC ABG pH POC ABG pCO2 POC ABG pO2 Sodium Potassium Chloride Carbon Dioxide BUN Creatinine Glucose POC Glucose Lactic Acid Calcium Phosphorus Magnesium Direct Bilirubin AST ALT Alkaline Phosphatase Lactate Dehydrogenase Troponin T C-Reactive Protein 15.70 H Total Protein Albumin Prealbumin Triglycerides Cholesterol LDL Cholesterol Direct HDL Cholesterol Urine pH Urine WBC (Auto) Urine Creatinine Urine Total Protein Fluid Total Protein Vancomycin Trough Rheumatoid Factor 24 H Complement C4 Miscellaneous Test Crossmatch 09/08/16 09/08/16 09/09/16 15:35 18:25 00:24 WBC RBC Hgb Hct MCV MCH MCHC RDW Plt Count Lymph % (Auto) [place] % (Auto) Lymph # [place] # Baso # Seg Neutrophils % Seg Neuts % (Manual) Lymphocytes % (Manual) Monocytes % (Manual) Eosinophils % (Manual) Basophils % (Manual) Nucleated RBC % Seg Neutrophils # Seg Neutrophils # Man Lymphocytes # (Manual) Monocytes # (Manual) Eosinophils # (Manual) PT INR Fibrinogen dRVVT Confirm Interp Factor V Activity 182 H POC ABG pH POC ABG pCO2 POC ABG pO2 Sodium Potassium Chloride Carbon Dioxide BUN Creatinine Glucose POC Glucose 184 H 216 H Lactic Acid Calcium Phosphorus Magnesium Direct Bilirubin AST ALT Alkaline Phosphatase Lactate Dehydrogenase Troponin T C-Reactive Protein Total Protein Albumin Prealbumin Triglycerides Cholesterol LDL Cholesterol Direct HDL Cholesterol Urine pH Urine WBC (Auto) Urine Creatinine Urine Total Protein Fluid Total Protein Vancomycin Trough Rheumatoid Factor Complement C4 Miscellaneous Test Crossmatch 09/09/16 09/09/16 09/09/16 03:00 03:00 04:04 WBC 27.9 H RBC Hgb 8.7 L Hct 28.1 L MCV 72 L MCH 22 L MCHC RDW 18.4 H Plt Count 485 H Lymph % (Auto) [place] % (Auto) Lymph # [place] # Baso # Seg Neutrophils % Seg Neuts % (Manual) 77.0 H Lymphocytes % (Manual) 9.0 L Monocytes % (Manual) Eosinophils % (Manual) Basophils % (Manual) Nucleated RBC % Seg Neutrophils # Seg Neutrophils # Man 21.5 H Lymphocytes # (Manual) Monocytes # (Manual) 2.0 H Eosinophils # (Manual) PT INR Fibrinogen dRVVT Confirm Interp Factor V Activity POC ABG pH POC ABG pCO2 POC ABG pO2 121 H Sodium 135 L Potassium Chloride 96.3 L Carbon Dioxide 21 L BUN 83 H Creatinine 3.0 H Glucose 135 H POC Glucose Lactic Acid Calcium Phosphorus Magnesium Direct Bilirubin AST ALT Alkaline Phosphatase Lactate Dehydrogenase Troponin T C-Reactive Protein Total Protein Albumin Prealbumin Triglycerides Cholesterol LDL Cholesterol Direct HDL Cholesterol Urine pH Urine WBC (Auto) Urine Creatinine Urine Total Protein Fluid Total Protein Vancomycin Trough Rheumatoid Factor Complement C4 Miscellaneous Test Crossmatch 09/09/16 09/09/16 09/09/16 05:41 11:55 14:13 WBC RBC Hgb Hct MCV MCH MCHC RDW Plt Count Lymph % (Auto) [place] % (Auto) Lymph # [place] # Baso # Seg Neutrophils % Seg Neuts % (Manual) Lymphocytes % (Manual) Monocytes % (Manual) Eosinophils % (Manual) Basophils % (Manual) Nucleated RBC % Seg Neutrophils # Seg Neutrophils # Man Lymphocytes # (Manual) Monocytes # (Manual) Eosinophils # (Manual) PT INR Fibrinogen dRVVT Confirm Interp Factor V Activity POC ABG pH POC ABG pCO2 POC ABG pO2 Sodium Potassium Chloride Carbon Dioxide BUN Creatinine Glucose POC Glucose 155 H 186 H Lactic Acid Calcium Phosphorus Magnesium Direct Bilirubin AST ALT Alkaline Phosphatase Lactate Dehydrogenase Troponin T C-Reactive Protein Total Protein Albumin Prealbumin Triglycerides Cholesterol LDL Cholesterol Direct HDL Cholesterol Urine pH Urine WBC (Auto) 25.0 H Urine Creatinine Urine Total Protein Fluid Total Protein Vancomycin Trough Rheumatoid Factor Complement C4 Miscellaneous Test Crossmatch 09/09/16 09/09/16 09/10/16 17:33 23:13 05:09 WBC RBC Hgb Hct MCV MCH MCHC RDW Plt Count Lymph % (Auto) [place] % (Auto) Lymph # [place] # Baso # Seg Neutrophils % Seg Neuts % (Manual) Lymphocytes % (Manual) Monocytes % (Manual) Eosinophils % (Manual) Basophils % (Manual) Nucleated RBC % Seg Neutrophils # Seg Neutrophils # Man Lymphocytes # (Manual) Monocytes # (Manual) Eosinophils # (Manual) PT INR Fibrinogen dRVVT Confirm Interp Factor V Activity POC ABG pH POC ABG pCO2 POC ABG pO2 74 L Sodium Potassium Chloride Carbon Dioxide BUN Creatinine Glucose POC Glucose 211 H 215 H Lactic Acid Calcium Phosphorus Magnesium Direct Bilirubin AST ALT Alkaline Phosphatase Lactate Dehydrogenase Troponin T C-Reactive Protein Total Protein Albumin Prealbumin Triglycerides Cholesterol LDL Cholesterol Direct HDL Cholesterol Urine pH Urine WBC (Auto) Urine Creatinine Urine Total Protein Fluid Total Protein Vancomycin Trough Rheumatoid Factor Complement C4 Miscellaneous Test Crossmatch 09/10/16 09/10/16 09/10/16 05:17 05:17 11:31 WBC 15.8 H RBC 3.25 L Hgb 7.3 L Hct 22.9 L MCV 71 L MCH 23 L MCHC RDW 18.4 H Plt Count Lymph % (Auto) [place] % (Auto) Lymph # [place] # Baso # Seg Neutrophils % Seg Neuts % (Manual) 91.0 H Lymphocytes % (Manual) 4.0 L Monocytes % (Manual) Eosinophils % (Manual) Basophils % (Manual) Nucleated RBC % Seg Neutrophils # Seg Neutrophils # Man 14.4 H Lymphocytes # (Manual) 0.6 L Monocytes # (Manual) Eosinophils # (Manual) PT INR Fibrinogen dRVVT Confirm Interp Factor V Activity POC ABG pH POC ABG pCO2 POC ABG pO2 Sodium Potassium Chloride Carbon Dioxide 21 L BUN 93 H Creatinine 2.9 H Glucose 146 H POC Glucose 188 H Lactic Acid Calcium 8.1 L Phosphorus Magnesium Direct Bilirubin AST ALT Alkaline Phosphatase Lactate Dehydrogenase Troponin T C-Reactive Protein Total Protein Albumin Prealbumin Triglycerides Cholesterol LDL Cholesterol Direct HDL Cholesterol Urine pH Urine WBC (Auto) Urine Creatinine Urine Total Protein Fluid Total Protein Vancomycin Trough Rheumatoid Factor Complement C4 Miscellaneous Test Crossmatch 09/10/16 09/10/16 09/10/16 13:17 17:20 23:32 WBC RBC Hgb Hct MCV MCH MCHC RDW Plt Count Lymph % (Auto) [place] % (Auto) Lymph # [place] # Baso # Seg Neutrophils % Seg Neuts % (Manual) Lymphocytes % (Manual) Monocytes % (Manual) Eosinophils % (Manual) Basophils % (Manual) Nucleated RBC % Seg Neutrophils # Seg Neutrophils # Man Lymphocytes # (Manual) Monocytes # (Manual) Eosinophils # (Manual) PT INR Fibrinogen dRVVT Confirm Interp Factor V Activity POC ABG pH POC ABG pCO2 POC ABG pO2 Sodium Potassium Chloride Carbon Dioxide BUN Creatinine Glucose POC Glucose 199 H 186 H Lactic Acid Calcium Phosphorus Magnesium Direct Bilirubin AST ALT Alkaline Phosphatase Lactate Dehydrogenase Troponin T C-Reactive Protein Total Protein Albumin Prealbumin Triglycerides Cholesterol LDL Cholesterol Direct HDL Cholesterol Urine pH Urine WBC (Auto) Urine Creatinine Urine Total Protein Fluid Total Protein Vancomycin Trough Rheumatoid Factor Complement C4 Miscellaneous Test Crossmatch See Detail 09/11/16 09/11/16 09/11/16 05:10 05:10 05:17 WBC 28.4 H RBC Hgb 9.2 L Hct 29.3 L D MCV 73 L MCH 23 L MCHC RDW 18.9 H Plt Count 452 H Lymph % (Auto) [place] % (Auto) Lymph # [place] # Baso # Seg Neutrophils % Seg Neuts % (Manual) 89.5 H Lymphocytes % (Manual) 2.0 L Monocytes % (Manual) Eosinophils % (Manual) Basophils % (Manual) Nucleated RBC % Seg Neutrophils # Seg Neutrophils # Man 25.4 H Lymphocytes # (Manual) 0.6 L Monocytes # (Manual) 1.3 H Eosinophils # (Manual) PT INR Fibrinogen dRVVT Confirm Interp Factor V Activity POC ABG pH POC ABG pCO2 POC ABG pO2 Sodium 136 L Potassium Chloride Carbon Dioxide 18 L BUN 107 H Creatinine 2.6 H Glucose 187 H POC Glucose 230 H Lactic Acid Calcium 8.3 L Phosphorus Magnesium Direct Bilirubin AST ALT Alkaline Phosphatase Lactate Dehydrogenase Troponin T C-Reactive Protein Total Protein Albumin Prealbumin Triglycerides Cholesterol LDL Cholesterol Direct HDL Cholesterol Urine pH Urine WBC (Auto) Urine Creatinine Urine Total Protein Fluid Total Protein Vancomycin Trough Rheumatoid Factor Complement C4 Miscellaneous Test Crossmatch 09/11/16 09/11/16 09/11/16 05:55 12:02 17:32 WBC RBC Hgb Hct MCV MCH MCHC RDW Plt Count Lymph % (Auto) [place] % (Auto) Lymph # [place] # Baso # Seg Neutrophils % Seg Neuts % (Manual) Lymphocytes % (Manual) Monocytes % (Manual) Eosinophils % (Manual) Basophils % (Manual) Nucleated RBC % Seg Neutrophils # Seg Neutrophils # Man Lymphocytes # (Manual) Monocytes # (Manual) Eosinophils # (Manual) PT INR Fibrinogen dRVVT Confirm Interp Factor V Activity POC ABG pH POC ABG pCO2 33.8 L POC ABG pO2 Sodium Potassium Chloride Carbon Dioxide BUN Creatinine Glucose POC Glucose 191 H 239 H Lactic Acid Calcium Phosphorus Magnesium Direct Bilirubin AST ALT Alkaline Phosphatase Lactate Dehydrogenase Troponin T C-Reactive Protein Total Protein Albumin Prealbumin Triglycerides Cholesterol LDL Cholesterol Direct HDL Cholesterol Urine pH Urine WBC (Auto) Urine Creatinine Urine Total Protein Fluid Total Protein Vancomycin Trough Rheumatoid Factor Complement C4 Miscellaneous Test Crossmatch 09/11/16 09/12/16 09/12/16 23:52 05:09 05:32 WBC RBC Hgb Hct MCV MCH MCHC RDW Plt Count Lymph % (Auto) [place] % (Auto) Lymph # [place] # Baso # Seg Neutrophils % Seg Neuts % (Manual) Lymphocytes % (Manual) Monocytes % (Manual) Eosinophils % (Manual) Basophils % (Manual) Nucleated RBC % Seg Neutrophils # Seg Neutrophils # Man Lymphocytes # (Manual) Monocytes # (Manual) Eosinophils # (Manual) PT INR Fibrinogen dRVVT Confirm Interp Factor V Activity POC ABG pH POC ABG pCO2 34.6 L POC ABG pO2 Sodium Potassium Chloride Carbon Dioxide BUN Creatinine Glucose POC Glucose 265 H 184 H Lactic Acid Calcium Phosphorus Magnesium Direct Bilirubin AST ALT Alkaline Phosphatase Lactate Dehydrogenase Troponin T C-Reactive Protein Total Protein Albumin Prealbumin Triglycerides Cholesterol LDL Cholesterol Direct HDL Cholesterol Urine pH Urine WBC (Auto) Urine Creatinine Urine Total Protein Fluid Total Protein Vancomycin Trough Rheumatoid Factor Complement C4 Miscellaneous Test Crossmatch 09/12/16 09/12/16 09/12/16 06:45 06:45 07:22 WBC 31.7 H RBC 3.54 L Hgb 8.3 L Hct 25.9 L MCV 73 L MCH 23 L MCHC RDW 18.9 H Plt Count Lymph % (Auto) [place] % (Auto) Lymph # [place] # Baso # Seg Neutrophils % Seg Neuts % (Manual) 88.5 H Lymphocytes % (Manual) 4.5 L Monocytes % (Manual) Eosinophils % (Manual) Basophils % (Manual) Nucleated RBC % Seg Neutrophils # Seg Neutrophils # Man 28.1 H Lymphocytes # (Manual) Monocytes # (Manual) 1.0 H Eosinophils # (Manual) PT INR Fibrinogen dRVVT Confirm Interp Factor V Activity POC ABG pH POC ABG pCO2 POC ABG pO2 Sodium Potassium Chloride Carbon Dioxide 20 L BUN 115 H Creatinine 2.7 H Glucose 165 H POC Glucose Lactic Acid Calcium 8.0 L Phosphorus Magnesium Direct Bilirubin AST ALT Alkaline Phosphatase Lactate Dehydrogenase Troponin T C-Reactive Protein Total Protein Albumin Prealbumin Triglycerides 217 H Cholesterol LDL Cholesterol Direct HDL Cholesterol Urine pH Urine WBC (Auto) Urine Creatinine Urine Total Protein Fluid Total Protein Vancomycin Trough Rheumatoid Factor Complement C4 Miscellaneous Test Crossmatch 09/12/16 09/12/16 09/12/16 07:22 09:59 12:21 WBC RBC Hgb Hct MCV MCH MCHC RDW Plt Count Lymph % (Auto) [place] % (Auto) Lymph # [place] # Baso # Seg Neutrophils % Seg Neuts % (Manual) Lymphocytes % (Manual) Monocytes % (Manual) Eosinophils % (Manual) Basophils % (Manual) Nucleated RBC % Seg Neutrophils # Seg Neutrophils # Man Lymphocytes # (Manual) Monocytes # (Manual) Eosinophils # (Manual) PT INR Fibrinogen dRVVT Confirm Interp Positive H Factor V Activity POC ABG pH POC ABG pCO2 POC ABG pO2 Sodium Potassium Chloride Carbon Dioxide BUN Creatinine Glucose POC Glucose 224 H Lactic Acid Calcium Phosphorus Magnesium Direct Bilirubin AST ALT Alkaline Phosphatase Lactate Dehydrogenase Troponin T C-Reactive Protein 1.70 H Total Protein Albumin Prealbumin Triglycerides Cholesterol LDL Cholesterol Direct HDL Cholesterol Urine pH Urine WBC (Auto) Urine Creatinine Urine Total Protein Fluid Total Protein Vancomycin Trough Rheumatoid Factor Complement C4 Miscellaneous Test Crossmatch 09/12/16 09/12/16 09/13/16 16:51 23:28 04:00 WBC 45.0 H* RBC Hgb 9.4 L Hct MCV 75 L MCH 23 L MCHC RDW 19.0 H Plt Count 470 H Lymph % (Auto) [place] % (Auto) Lymph # [place] # Baso # Seg Neutrophils % Seg Neuts % (Manual) 89.0 H Lymphocytes % (Manual) 5.0 L Monocytes % (Manual) Eosinophils % (Manual) Basophils % (Manual) Nucleated RBC % Seg Neutrophils # Seg Neutrophils # Man 40.1 H Lymphocytes # (Manual) Monocytes # (Manual) Eosinophils # (Manual) PT INR Fibrinogen dRVVT Confirm Interp Factor V Activity POC ABG pH POC ABG pCO2 POC ABG pO2 Sodium Potassium Chloride Carbon Dioxide BUN Creatinine Glucose POC Glucose 169 H 150 H Lactic Acid Calcium Phosphorus Magnesium Direct Bilirubin AST ALT Alkaline Phosphatase Lactate Dehydrogenase Troponin T C-Reactive Protein Total Protein Albumin Prealbumin Triglycerides Cholesterol LDL Cholesterol Direct HDL Cholesterol Urine pH Urine WBC (Auto) Urine Creatinine Urine Total Protein Fluid Total Protein Vancomycin Trough Rheumatoid Factor Complement C4 Miscellaneous Test Crossmatch 09/13/16 09/13/16 09/13/16 04:00 11:26 17:31 WBC RBC Hgb Hct MCV MCH MCHC RDW Plt Count Lymph % (Auto) [place] % (Auto) Lymph # [place] # Baso # Seg Neutrophils % Seg Neuts % (Manual) Lymphocytes % (Manual) Monocytes % (Manual) Eosinophils % (Manual) Basophils % (Manual) Nucleated RBC % Seg Neutrophils # Seg Neutrophils # Man Lymphocytes # (Manual) Monocytes # (Manual) Eosinophils # (Manual) PT INR Fibrinogen dRVVT Confirm Interp Factor V Activity POC ABG pH POC ABG pCO2 POC ABG pO2 Sodium Potassium Chloride Carbon Dioxide 20 L BUN 116 H Creatinine 3.0 H Glucose 172 H POC Glucose 140 H 183 H Lactic Acid Calcium Phosphorus Magnesium Direct Bilirubin AST ALT Alkaline Phosphatase Lactate Dehydrogenase Troponin T C-Reactive Protein Total Protein 6.2 L Albumin 2.9 L Prealbumin Triglycerides Cholesterol LDL Cholesterol Direct HDL Cholesterol Urine pH Urine WBC (Auto) Urine Creatinine Urine Total Protein Fluid Total Protein Vancomycin Trough Rheumatoid Factor Complement C4 Miscellaneous Test Crossmatch 09/13/16 09/14/16 09/14/16 23:23 04:06 04:07 WBC 29.4 H RBC Hgb 8.9 L Hct 27.3 L MCV 75 L MCH 24 L MCHC RDW 19.1 H Plt Count Lymph % (Auto) [place] % (Auto) Lymph # [place] # Baso # Seg Neutrophils % Seg Neuts % (Manual) 84.0 H Lymphocytes % (Manual) 6.0 L Monocytes % (Manual) 9.0 H Eosinophils % (Manual) Basophils % (Manual) Nucleated RBC % Seg Neutrophils # Seg Neutrophils # Man 24.7 H Lymphocytes # (Manual) Monocytes # (Manual) 2.6 H Eosinophils # (Manual) PT INR Fibrinogen dRVVT Confirm Interp Factor V Activity POC ABG pH 7.342 L POC ABG pCO2 POC ABG pO2 116 H Sodium Potassium Chloride Carbon Dioxide BUN Creatinine Glucose POC Glucose 154 H Lactic Acid Calcium Phosphorus Magnesium Direct Bilirubin AST ALT Alkaline Phosphatase Lactate Dehydrogenase Troponin T C-Reactive Protein Total Protein Albumin Prealbumin Triglycerides Cholesterol LDL Cholesterol Direct HDL Cholesterol Urine pH Urine WBC (Auto) Urine Creatinine Urine Total Protein Fluid Total Protein Vancomycin Trough Rheumatoid Factor Complement C4 Miscellaneous Test Crossmatch 09/14/16 09/14/16 09/14/16 04:07 05:29 12:19 WBC RBC Hgb Hct MCV MCH MCHC RDW Plt Count Lymph % (Auto) [place] % (Auto) Lymph # [place] # Baso # Seg Neutrophils % Seg Neuts % (Manual) Lymphocytes % (Manual) Monocytes % (Manual) Eosinophils % (Manual) Basophils % (Manual) Nucleated RBC % Seg Neutrophils # Seg Neutrophils # Man Lymphocytes # (Manual) Monocytes # (Manual) Eosinophils # (Manual) PT INR Fibrinogen dRVVT Confirm Interp Factor V Activity POC ABG pH POC ABG pCO2 POC ABG pO2 Sodium 136 L Potassium Chloride Carbon Dioxide 18 L BUN 121 H Creatinine 2.8 H Glucose 214 H POC Glucose 239 H 181 H Lactic Acid Calcium Phosphorus Magnesium Direct Bilirubin AST ALT Alkaline Phosphatase Lactate Dehydrogenase Troponin T C-Reactive Protein Total Protein Albumin Prealbumin Triglycerides Cholesterol LDL Cholesterol Direct HDL Cholesterol Urine pH Urine WBC (Auto) Urine Creatinine Urine Total Protein Fluid Total Protein Vancomycin Trough Rheumatoid Factor Complement C4 Miscellaneous Test Crossmatch 09/14/16 09/14/16 09/15/16 18:12 23:37 05:00 WBC 26.1 H RBC 3.05 L Hgb 7.2 L Hct 22.9 L MCV 75 L MCH 24 L MCHC RDW 19.0 H Plt Count Lymph % (Auto) [place] % (Auto) Lymph # [place] # Baso # Seg Neutrophils % Seg Neuts % (Manual) Lymphocytes % (Manual) Monocytes % (Manual) Eosinophils % (Manual) Basophils % (Manual) Nucleated RBC % Seg Neutrophils # Seg Neutrophils # Man Lymphocytes # (Manual) Monocytes # (Manual) Eosinophils # (Manual) PT INR Fibrinogen dRVVT Confirm Interp Factor V Activity POC ABG pH POC ABG pCO2 POC ABG pO2 Sodium Potassium Chloride Carbon Dioxide BUN Creatinine Glucose POC Glucose 266 H 154 H Lactic Acid Calcium Phosphorus Magnesium Direct Bilirubin AST ALT Alkaline Phosphatase Lactate Dehydrogenase Troponin T C-Reactive Protein Total Protein Albumin Prealbumin Triglycerides Cholesterol LDL Cholesterol Direct HDL Cholesterol Urine pH Urine WBC (Auto) Urine Creatinine Urine Total Protein Fluid Total Protein Vancomycin Trough Rheumatoid Factor Complement C4 Miscellaneous Test Crossmatch 09/15/16 09/15/16 09/15/16 05:00 05:17 12:45 WBC RBC Hgb Hct MCV MCH MCHC RDW Plt Count Lymph % (Auto) [place] % (Auto) Lymph # [place] # Baso # Seg Neutrophils % Seg Neuts % (Manual) Lymphocytes % (Manual) Monocytes % (Manual) Eosinophils % (Manual) Basophils % (Manual) Nucleated RBC % Seg Neutrophils # Seg Neutrophils # Man Lymphocytes # (Manual) Monocytes # (Manual) Eosinophils # (Manual) PT INR Fibrinogen dRVVT Confirm Interp Factor V Activity POC ABG pH POC ABG pCO2 POC ABG pO2 Sodium Potassium 5.2 H Chloride Carbon Dioxide 18 L BUN 139 H Creatinine 3.7 H Glucose 227 H POC Glucose 226 H 244 H Lactic Acid Calcium 8.3 L Phosphorus Magnesium Direct Bilirubin AST ALT Alkaline Phosphatase Lactate Dehydrogenase Troponin T C-Reactive Protein Total Protein Albumin Prealbumin Triglycerides Cholesterol LDL Cholesterol Direct HDL Cholesterol Urine pH Urine WBC (Auto) Urine Creatinine Urine Total Protein Fluid Total Protein Vancomycin Trough Rheumatoid Factor Complement C4 Miscellaneous Test Crossmatch 09/15/16 09/15/16 09/15/16 14:32 17:33 23:35 WBC RBC Hgb Hct MCV MCH MCHC RDW Plt Count Lymph % (Auto) [place] % (Auto) Lymph # [place] # Baso # Seg Neutrophils % Seg Neuts % (Manual) Lymphocytes % (Manual) Monocytes % (Manual) Eosinophils % (Manual) Basophils % (Manual) Nucleated RBC % Seg Neutrophils # Seg Neutrophils # Man Lymphocytes # (Manual) Monocytes # (Manual) Eosinophils # (Manual) PT INR Fibrinogen dRVVT Confirm Interp Factor V Activity POC ABG pH POC ABG pCO2 27.7 L POC ABG pO2 120 H Sodium Potassium Chloride Carbon Dioxide BUN Creatinine Glucose POC Glucose 232 H 167 H Lactic Acid Calcium Phosphorus Magnesium Direct Bilirubin AST ALT Alkaline Phosphatase Lactate Dehydrogenase Troponin T C-Reactive Protein Total Protein Albumin Prealbumin Triglycerides Cholesterol LDL Cholesterol Direct HDL Cholesterol Urine pH Urine WBC (Auto) Urine Creatinine Urine Total Protein Fluid Total Protein Vancomycin Trough Rheumatoid Factor Complement C4 Miscellaneous Test Crossmatch 09/16/16 09/16/16 09/16/16 03:58 10:27 10:27 WBC 19.0 H RBC 2.77 L Hgb 6.5 L Hct 20.9 L MCV 76 L MCH 23 L MCHC RDW 19.3 H Plt Count Lymph % (Auto) 11.0 L [place] % (Auto) Lymph # [place] # 1.1 H Baso # Seg Neutrophils % 82.5 H Seg Neuts % (Manual) Lymphocytes % (Manual) Monocytes % (Manual) Eosinophils % (Manual) Basophils % (Manual) Nucleated RBC % Seg Neutrophils # 15.7 H Seg Neutrophils # Man Lymphocytes # (Manual) Monocytes # (Manual) Eosinophils # (Manual) PT INR Fibrinogen dRVVT Confirm Interp Factor V Activity POC ABG pH POC ABG pCO2 POC ABG pO2 Sodium Potassium Chloride 109.3 H Carbon Dioxide 18 L BUN 139 H Creatinine 4.1 H Glucose 144 H POC Glucose 146 H Lactic Acid Calcium 8.1 L Phosphorus Magnesium Direct Bilirubin AST ALT Alkaline Phosphatase Lactate Dehydrogenase Troponin T C-Reactive Protein Total Protein Albumin Prealbumin Triglycerides Cholesterol LDL Cholesterol Direct HDL Cholesterol Urine pH Urine WBC (Auto) Urine Creatinine Urine Total Protein Fluid Total Protein Vancomycin Trough Rheumatoid Factor Complement C4 Miscellaneous Test Crossmatch 09/16/16 09/16/16 09/16/16 12:04 12:10 13:55 WBC RBC Hgb Hct MCV MCH MCHC RDW Plt Count Lymph % (Auto) [place] % (Auto) Lymph # [place] # Baso # Seg Neutrophils % Seg Neuts % (Manual) Lymphocytes % (Manual) Monocytes % (Manual) Eosinophils % (Manual) Basophils % (Manual) Nucleated RBC % Seg Neutrophils # Seg Neutrophils # Man Lymphocytes # (Manual) Monocytes # (Manual) Eosinophils # (Manual) PT INR Fibrinogen dRVVT Confirm Interp Factor V Activity POC ABG pH POC ABG pCO2 32.9 L POC ABG pO2 Sodium Potassium Chloride Carbon Dioxide BUN Creatinine Glucose POC Glucose 185 H Lactic Acid Calcium Phosphorus Magnesium Direct Bilirubin AST ALT Alkaline Phosphatase Lactate Dehydrogenase Troponin T C-Reactive Protein Total Protein Albumin Prealbumin Triglycerides Cholesterol LDL Cholesterol Direct HDL Cholesterol Urine pH Urine WBC (Auto) Urine Creatinine Urine Total Protein Fluid Total Protein Vancomycin Trough Rheumatoid Factor Complement C4 Miscellaneous Test Crossmatch See Detail 09/16/16 09/16/16 09/16/16 17:55 19:19 23:48 WBC RBC Hgb Hct MCV MCH MCHC RDW Plt Count Lymph % (Auto) [place] % (Auto) Lymph # [place] # Baso # Seg Neutrophils % Seg Neuts % (Manual) Lymphocytes % (Manual) Monocytes % (Manual) Eosinophils % (Manual) Basophils % (Manual) Nucleated RBC % Seg Neutrophils # Seg Neutrophils # Man Lymphocytes # (Manual) Monocytes # (Manual) Eosinophils # (Manual) PT INR Fibrinogen dRVVT Confirm Interp Factor V Activity POC ABG pH POC ABG pCO2 POC ABG pO2 Sodium Potassium Chloride Carbon Dioxide BUN Creatinine Glucose POC Glucose 222 H 107 H Lactic Acid Calcium Phosphorus Magnesium Direct Bilirubin AST ALT Alkaline Phosphatase Lactate Dehydrogenase Troponin T C-Reactive Protein Total Protein Albumin Prealbumin Triglycerides Cholesterol LDL Cholesterol Direct HDL Cholesterol Urine pH Urine WBC (Auto) Urine Creatinine 47.4 H Urine Total Protein 16 H Fluid Total Protein Vancomycin Trough Rheumatoid Factor Complement C4 Miscellaneous Test Crossmatch 09/17/16 09/17/16 09/17/16 03:45 03:45 04:55 WBC 19.6 H RBC 3.41 L Hgb 8.5 L Hct 26.7 L MCV 78 L MCH 25 L MCHC RDW 19.9 H Plt Count Lymph % (Auto) 9.3 L [place] % (Auto) Lymph # [place] # 1.2 H Baso # Seg Neutrophils % 83.9 H Seg Neuts % (Manual) Lymphocytes % (Manual) Monocytes % (Manual) Eosinophils % (Manual) Basophils % (Manual) Nucleated RBC % Seg Neutrophils # 16.4 H Seg Neutrophils # Man Lymphocytes # (Manual) Monocytes # (Manual) Eosinophils # (Manual) PT INR Fibrinogen dRVVT Confirm Interp Factor V Activity POC ABG pH POC ABG pCO2 POC ABG pO2 Sodium 146 H Potassium 5.1 H Chloride 110.9 H Carbon Dioxide 16 L BUN 146 H Creatinine 4.0 H Glucose 108 H POC Glucose 133 H Lactic Acid Calcium Phosphorus Magnesium 3.00 H Direct Bilirubin AST ALT Alkaline Phosphatase Lactate Dehydrogenase Troponin T C-Reactive Protein Total Protein Albumin Prealbumin Triglycerides Cholesterol LDL Cholesterol Direct HDL Cholesterol Urine pH Urine WBC (Auto) Urine Creatinine Urine Total Protein Fluid Total Protein Vancomycin Trough Rheumatoid Factor Complement C4 Miscellaneous Test Crossmatch 09/17/16 09/17/16 09/17/16 11:15 17:33 23:47 WBC RBC Hgb Hct MCV MCH MCHC RDW Plt Count Lymph % (Auto) [place] % (Auto) Lymph # [place] # Baso # Seg Neutrophils % Seg Neuts % (Manual) Lymphocytes % (Manual) Monocytes % (Manual) Eosinophils % (Manual) Basophils % (Manual) Nucleated RBC % Seg Neutrophils # Seg Neutrophils # Man Lymphocytes # (Manual) Monocytes # (Manual) Eosinophils # (Manual) PT INR Fibrinogen dRVVT Confirm Interp Factor V Activity POC ABG pH POC ABG pCO2 POC ABG pO2 Sodium Potassium Chloride Carbon Dioxide BUN Creatinine Glucose POC Glucose 176 H 246 H 148 H Lactic Acid Calcium Phosphorus Magnesium Direct Bilirubin AST ALT Alkaline Phosphatase Lactate Dehydrogenase Troponin T C-Reactive Protein Total Protein Albumin Prealbumin Triglycerides Cholesterol LDL Cholesterol Direct HDL Cholesterol Urine pH Urine WBC (Auto) Urine Creatinine Urine Total Protein Fluid Total Protein Vancomycin Trough Rheumatoid Factor Complement C4 Miscellaneous Test Crossmatch 09/18/16 09/18/16 09/18/16 05:33 08:31 08:31 WBC 18.0 H RBC 3.17 L Hgb 9.0 L Hct 25.7 L MCV MCH MCHC 35 H RDW 20.4 H Plt Count Lymph % (Auto) [place] % (Auto) Lymph # [place] # Baso # Seg Neutrophils % Seg Neuts % (Manual) Lymphocytes % (Manual) Monocytes % (Manual) Eosinophils % (Manual) Basophils % (Manual) Nucleated RBC % Seg Neutrophils # Seg Neutrophils # Man Lymphocytes # (Manual) Monocytes # (Manual) Eosinophils # (Manual) PT INR Fibrinogen dRVVT Confirm Interp Factor V Activity POC ABG pH POC ABG pCO2 POC ABG pO2 Sodium Potassium Chloride Carbon Dioxide 15 L BUN 124 H Creatinine 3.8 H Glucose POC Glucose 120 H Lactic Acid Calcium 8.1 L Phosphorus Magnesium Direct Bilirubin AST ALT Alkaline Phosphatase Lactate Dehydrogenase Troponin T C-Reactive Protein Total Protein Albumin Prealbumin Triglycerides Cholesterol LDL Cholesterol Direct HDL Cholesterol Urine pH Urine WBC (Auto) Urine Creatinine Urine Total Protein Fluid Total Protein Vancomycin Trough Rheumatoid Factor Complement C4 Miscellaneous Test Crossmatch 09/18/16 09/18/16 09/18/16 12:03 15:34 17:50 WBC RBC Hgb Hct MCV MCH MCHC RDW Plt Count Lymph % (Auto) [place] % (Auto) Lymph # [place] # Baso # Seg Neutrophils % Seg Neuts % (Manual) Lymphocytes % (Manual) Monocytes % (Manual) Eosinophils % (Manual) Basophils % (Manual) Nucleated RBC % Seg Neutrophils # Seg Neutrophils # Man Lymphocytes # (Manual) Monocytes # (Manual) Eosinophils # (Manual) PT INR Fibrinogen dRVVT Confirm Interp Factor V Activity POC ABG pH POC ABG pCO2 25.7 L POC ABG pO2 66 L Sodium Potassium Chloride Carbon Dioxide BUN Creatinine Glucose POC Glucose 156 H 220 H Lactic Acid Calcium Phosphorus Magnesium Direct Bilirubin AST ALT Alkaline Phosphatase Lactate Dehydrogenase Troponin T C-Reactive Protein Total Protein Albumin Prealbumin Triglycerides Cholesterol LDL Cholesterol Direct HDL Cholesterol Urine pH Urine WBC (Auto) Urine Creatinine Urine Total Protein Fluid Total Protein Vancomycin Trough Rheumatoid Factor Complement C4 Miscellaneous Test Crossmatch 09/19/16 09/19/16 09/19/16 06:21 09:50 09:50 WBC 17.1 H RBC 3.49 L Hgb 9.0 L Hct 28.1 L MCV MCH 26 L MCHC RDW 20.8 H Plt Count Lymph % (Auto) 11.5 L [place] % (Auto) 7.5 H Lymph # [place] # 1.3 H Baso # Seg Neutrophils % 79.8 H Seg Neuts % (Manual) Lymphocytes % (Manual) Monocytes % (Manual) Eosinophils % (Manual) Basophils % (Manual) Nucleated RBC % Seg Neutrophils # 13.7 H Seg Neutrophils # Man Lymphocytes # (Manual) Monocytes # (Manual) Eosinophils # (Manual) PT INR Fibrinogen dRVVT Confirm Interp Factor V Activity POC ABG pH POC ABG pCO2 POC ABG pO2 Sodium Potassium Chloride 108.6 H Carbon Dioxide 15 L BUN 125 H Creatinine 4.1 H Glucose 124 H POC Glucose 119 H Lactic Acid Calcium Phosphorus Magnesium Direct Bilirubin AST ALT Alkaline Phosphatase Lactate Dehydrogenase Troponin T C-Reactive Protein Total Protein Albumin Prealbumin Triglycerides Cholesterol LDL Cholesterol Direct HDL Cholesterol Urine pH Urine WBC (Auto) Urine Creatinine Urine Total Protein Fluid Total Protein Vancomycin Trough Rheumatoid Factor Complement C4 Miscellaneous Test Crossmatch 09/19/16 09/19/16 09/19/16 11:25 17:53 23:36 WBC RBC Hgb Hct MCV MCH MCHC RDW Plt Count Lymph % (Auto) [place] % (Auto) Lymph # [place] # Baso # Seg Neutrophils % Seg Neuts % (Manual) Lymphocytes % (Manual) Monocytes % (Manual) Eosinophils % (Manual) Basophils % (Manual) Nucleated RBC % Seg Neutrophils # Seg Neutrophils # Man Lymphocytes # (Manual) Monocytes # (Manual) Eosinophils # (Manual) PT INR Fibrinogen dRVVT Confirm Interp Factor V Activity POC ABG pH POC ABG pCO2 POC ABG pO2 Sodium Potassium Chloride Carbon Dioxide BUN Creatinine Glucose POC Glucose 160 H 245 H 121 H Lactic Acid Calcium Phosphorus Magnesium Direct Bilirubin AST ALT Alkaline Phosphatase Lactate Dehydrogenase Troponin T C-Reactive Protein Total Protein Albumin Prealbumin Triglycerides Cholesterol LDL Cholesterol Direct HDL Cholesterol Urine pH Urine WBC (Auto) Urine Creatinine Urine Total Protein Fluid Total Protein Vancomycin Trough Rheumatoid Factor Complement C4 Miscellaneous Test Crossmatch 09/20/16 09/20/16 09/20/16 04:10 04:10 04:10 WBC 17.0 H RBC 3.21 L Hgb 8.2 L Hct 25.5 L MCV MCH 26 L MCHC RDW 20.9 H Plt Count Lymph % (Auto) [place] % (Auto) Lymph # [place] # Baso # Seg Neutrophils % Seg Neuts % (Manual) Lymphocytes % (Manual) Monocytes % (Manual) Eosinophils % (Manual) Basophils % (Manual) Nucleated RBC % Seg Neutrophils # Seg Neutrophils # Man Lymphocytes # (Manual) Monocytes # (Manual) Eosinophils # (Manual) PT INR Fibrinogen dRVVT Confirm Interp Factor V Activity POC ABG pH POC ABG pCO2 POC ABG pO2 Sodium Potassium Chloride 111.0 H Carbon Dioxide 16 L BUN 129 H Creatinine 3.7 H Glucose 115 H POC Glucose Lactic Acid Calcium 8.2 L Phosphorus Magnesium Direct Bilirubin AST ALT Alkaline Phosphatase Lactate Dehydrogenase Troponin T C-Reactive Protein Total Protein Albumin Prealbumin Triglycerides 243 H Cholesterol LDL Cholesterol Direct HDL Cholesterol Urine pH Urine WBC (Auto) Urine Creatinine Urine Total Protein Fluid Total Protein Vancomycin Trough Rheumatoid Factor Complement C4 Miscellaneous Test Crossmatch 09/20/16 09/20/16 09/20/16 05:40 11:52 16:50 WBC RBC Hgb Hct MCV MCH MCHC RDW Plt Count Lymph % (Auto) [place] % (Auto) Lymph # [place] # Baso # Seg Neutrophils % Seg Neuts % (Manual) Lymphocytes % (Manual) Monocytes % (Manual) Eosinophils % (Manual) Basophils % (Manual) Nucleated RBC % Seg Neutrophils # Seg Neutrophils # Man Lymphocytes # (Manual) Monocytes # (Manual) Eosinophils # (Manual) PT INR Fibrinogen dRVVT Confirm Interp Factor V Activity POC ABG pH POC ABG pCO2 POC ABG pO2 Sodium Potassium Chloride Carbon Dioxide BUN Creatinine Glucose POC Glucose 131 H 183 H 236 H Lactic Acid Calcium Phosphorus Magnesium Direct Bilirubin AST ALT Alkaline Phosphatase Lactate Dehydrogenase Troponin T C-Reactive Protein Total Protein Albumin Prealbumin Triglycerides Cholesterol LDL Cholesterol Direct HDL Cholesterol Urine pH Urine WBC (Auto) Urine Creatinine Urine Total Protein Fluid Total Protein Vancomycin Trough Rheumatoid Factor Complement C4 Miscellaneous Test Crossmatch 09/20/16 09/21/16 09/21/16 23:51 03:30 04:44 WBC RBC Hgb Hct MCV MCH MCHC RDW Plt Count Lymph % (Auto) [place] % (Auto) Lymph # [place] # Baso # Seg Neutrophils % Seg Neuts % (Manual) Lymphocytes % (Manual) Monocytes % (Manual) Eosinophils % (Manual) Basophils % (Manual) Nucleated RBC % Seg Neutrophils # Seg Neutrophils # Man Lymphocytes # (Manual) Monocytes # (Manual) Eosinophils # (Manual) PT INR Fibrinogen dRVVT Confirm Interp Factor V Activity POC ABG pH POC ABG pCO2 POC ABG pO2 Sodium Potassium Chloride Carbon Dioxide BUN Creatinine Glucose POC Glucose 114 H 141 H Lactic Acid Calcium Phosphorus Magnesium 2.70 H Direct Bilirubin AST ALT Alkaline Phosphatase Lactate Dehydrogenase Troponin T C-Reactive Protein Total Protein Albumin Prealbumin Triglycerides Cholesterol LDL Cholesterol Direct HDL Cholesterol Urine pH Urine WBC (Auto) Urine Creatinine Urine Total Protein Fluid Total Protein Vancomycin Trough Rheumatoid Factor Complement C4 Miscellaneous Test Crossmatch 09/21/16 09/21/16 09/21/16 07:45 07:45 10:01 WBC 13.8 H RBC 2.94 L Hgb 7.5 L Hct 23.5 L MCV MCH 26 L MCHC RDW 21.2 H Plt Count Lymph % (Auto) 6.9 L [place] % (Auto) 9.4 H Lymph # 0.9 L [place] # 1.3 H Baso # Seg Neutrophils % 83.2 H Seg Neuts % (Manual) Lymphocytes % (Manual) Monocytes % (Manual) Eosinophils % (Manual) Basophils % (Manual) Nucleated RBC % Seg Neutrophils # 11.5 H Seg Neutrophils # Man Lymphocytes # (Manual) Monocytes # (Manual) Eosinophils # (Manual) PT INR Fibrinogen dRVVT Confirm Interp Factor V Activity POC ABG pH 7.308 L POC ABG pCO2 31.9 L POC ABG pO2 148 H Sodium 147 H Potassium Chloride 114.2 H Carbon Dioxide 15 L BUN 120 H Creatinine 3.9 H Glucose 156 H POC Glucose Lactic Acid Calcium 8.2 L Phosphorus Magnesium Direct Bilirubin AST ALT Alkaline Phosphatase Lactate Dehydrogenase Troponin T C-Reactive Protein Total Protein Albumin Prealbumin Triglycerides Cholesterol LDL Cholesterol Direct HDL Cholesterol Urine pH Urine WBC (Auto) Urine Creatinine Urine Total Protein Fluid Total Protein Vancomycin Trough Rheumatoid Factor Complement C4 Miscellaneous Test Crossmatch 09/21/16 09/21/16 09/21/16 12:00 12:03 13:00 WBC RBC Hgb Hct MCV MCH MCHC RDW Plt Count Lymph % (Auto) [place] % (Auto) Lymph # [place] # Baso # Seg Neutrophils % Seg Neuts % (Manual) Lymphocytes % (Manual) Monocytes % (Manual) Eosinophils % (Manual) Basophils % (Manual) Nucleated RBC % Seg Neutrophils # Seg Neutrophils # Man Lymphocytes # (Manual) Monocytes # (Manual) Eosinophils # (Manual) PT INR Fibrinogen dRVVT Confirm Interp Factor V Activity POC ABG pH POC ABG pCO2 POC ABG pO2 Sodium Potassium Chloride Carbon Dioxide BUN Creatinine Glucose POC Glucose 163 H Lactic Acid Calcium Phosphorus Magnesium Direct Bilirubin AST ALT Alkaline Phosphatase Lactate Dehydrogenase Troponin T C-Reactive Protein Total Protein Albumin Prealbumin Triglycerides Cholesterol LDL Cholesterol Direct HDL Cholesterol Urine pH Urine WBC (Auto) Urine Creatinine 54.8 H Urine Total Protein Fluid Total Protein Vancomycin Trough 2.3 L Rheumatoid Factor Complement C4 Miscellaneous Test Crossmatch 09/21/16 09/21/16 09/22/16 16:51 23:17 06:27 WBC RBC Hgb Hct MCV MCH MCHC RDW Plt Count Lymph % (Auto) [place] % (Auto) Lymph # [place] # Baso # Seg Neutrophils % Seg Neuts % (Manual) Lymphocytes % (Manual) Monocytes % (Manual) Eosinophils % (Manual) Basophils % (Manual) Nucleated RBC % Seg Neutrophils # Seg Neutrophils # Man Lymphocytes # (Manual) Monocytes # (Manual) Eosinophils # (Manual) PT INR Fibrinogen dRVVT Confirm Interp Factor V Activity POC ABG pH POC ABG pCO2 POC ABG pO2 Sodium Potassium Chloride Carbon Dioxide BUN Creatinine Glucose POC Glucose 206 H 114 H 115 H Lactic Acid Calcium Phosphorus Magnesium Direct Bilirubin AST ALT Alkaline Phosphatase Lactate Dehydrogenase Troponin T C-Reactive Protein Total Protein Albumin Prealbumin Triglycerides Cholesterol LDL Cholesterol Direct HDL Cholesterol Urine pH Urine WBC (Auto) Urine Creatinine Urine Total Protein Fluid Total Protein Vancomycin Trough Rheumatoid Factor Complement C4 Miscellaneous Test Crossmatch 09/22/16 09/22/16 09/22/16 07:50 07:50 12:00 WBC 17.8 H RBC 3.04 L Hgb 8.0 L Hct 24.7 L MCV MCH 26 L MCHC RDW 21.6 H Plt Count Lymph % (Auto) [place] % (Auto) Lymph # [place] # Baso # Seg Neutrophils % Seg Neuts % (Manual) Lymphocytes % (Manual) Monocytes % (Manual) Eosinophils % (Manual) Basophils % (Manual) Nucleated RBC % Seg Neutrophils # Seg Neutrophils # Man Lymphocytes # (Manual) Monocytes # (Manual) Eosinophils # (Manual) PT INR Fibrinogen dRVVT Confirm Interp Factor V Activity POC ABG pH POC ABG pCO2 POC ABG pO2 Sodium 150 H Potassium Chloride 118.2 H Carbon Dioxide 14 L BUN 111 H Creatinine 3.7 H Glucose 157 H POC Glucose 183 H Lactic Acid Calcium Phosphorus Magnesium Direct Bilirubin AST ALT Alkaline Phosphatase Lactate Dehydrogenase Troponin T C-Reactive Protein Total Protein Albumin Prealbumin Triglycerides Cholesterol LDL Cholesterol Direct HDL Cholesterol Urine pH Urine WBC (Auto) Urine Creatinine Urine Total Protein Fluid Total Protein Vancomycin Trough Rheumatoid Factor Complement C4 Miscellaneous Test Crossmatch 09/22/16 09/22/16 09/23/16 17:29 23:10 05:00 WBC 19.2 H RBC 3.13 L Hgb 8.0 L Hct 25.2 L MCV MCH 26 L MCHC RDW 22.1 H Plt Count Lymph % (Auto) [place] % (Auto) Lymph # [place] # Baso # Seg Neutrophils % Seg Neuts % (Manual) 92.0 H Lymphocytes % (Manual) 3.0 L Monocytes % (Manual) Eosinophils % (Manual) Basophils % (Manual) Nucleated RBC % Seg Neutrophils # Seg Neutrophils # Man 17.7 H Lymphocytes # (Manual) 0.6 L Monocytes # (Manual) Eosinophils # (Manual) PT INR Fibrinogen dRVVT Confirm Interp Factor V Activity POC ABG pH POC ABG pCO2 POC ABG pO2 Sodium Potassium Chloride Carbon Dioxide BUN Creatinine Glucose POC Glucose 197 H 169 H Lactic Acid Calcium Phosphorus Magnesium Direct Bilirubin AST ALT Alkaline Phosphatase Lactate Dehydrogenase Troponin T C-Reactive Protein Total Protein Albumin Prealbumin Triglycerides Cholesterol LDL Cholesterol Direct HDL Cholesterol Urine pH Urine WBC (Auto) Urine Creatinine Urine Total Protein Fluid Total Protein Vancomycin Trough Rheumatoid Factor Complement C4 Miscellaneous Test Crossmatch 09/23/16 09/23/16 09/23/16 05:00 05:00 05:10 WBC RBC Hgb Hct MCV MCH MCHC RDW Plt Count Lymph % (Auto) [place] % (Auto) Lymph # [place] # Baso # Seg Neutrophils % Seg Neuts % (Manual) Lymphocytes % (Manual) Monocytes % (Manual) Eosinophils % (Manual) Basophils % (Manual) Nucleated RBC % Seg Neutrophils # Seg Neutrophils # Man Lymphocytes # (Manual) Monocytes # (Manual) Eosinophils # (Manual) PT INR Fibrinogen dRVVT Confirm Interp Factor V Activity POC ABG pH POC ABG pCO2 POC ABG pO2 Sodium 147 H Potassium 3.2 L Chloride 115.7 H Carbon Dioxide 13 L BUN 111 H Creatinine 3.8 H Glucose 194 H POC Glucose 188 H Lactic Acid Calcium 7.3 L D Phosphorus Magnesium Direct Bilirubin AST ALT Alkaline Phosphatase Lactate Dehydrogenase Troponin T C-Reactive Protein 3.20 H Total Protein Albumin Prealbumin Triglycerides Cholesterol LDL Cholesterol Direct HDL Cholesterol Urine pH Urine WBC (Auto) Urine Creatinine Urine Total Protein Fluid Total Protein Vancomycin Trough Rheumatoid Factor Complement C4 Miscellaneous Test Crossmatch 09/23/16 09/23/16 09/23/16 11:37 12:29 18:01 WBC RBC Hgb Hct MCV MCH MCHC RDW Plt Count Lymph % (Auto) [place] % (Auto) Lymph # [place] # Baso # Seg Neutrophils % Seg Neuts % (Manual) Lymphocytes % (Manual) Monocytes % (Manual) Eosinophils % (Manual) Basophils % (Manual) Nucleated RBC % Seg Neutrophils # Seg Neutrophils # Man Lymphocytes # (Manual) Monocytes # (Manual) Eosinophils # (Manual) PT INR Fibrinogen dRVVT Confirm Interp Factor V Activity POC ABG pH POC ABG pCO2 18.9 L POC ABG pO2 143 H Sodium Potassium Chloride Carbon Dioxide BUN Creatinine Glucose POC Glucose 153 H 108 H Lactic Acid Calcium Phosphorus Magnesium Direct Bilirubin AST ALT Alkaline Phosphatase Lactate Dehydrogenase Troponin T C-Reactive Protein Total Protein Albumin Prealbumin Triglycerides Cholesterol LDL Cholesterol Direct HDL Cholesterol Urine pH Urine WBC (Auto) Urine Creatinine Urine Total Protein Fluid Total Protein Vancomycin Trough Rheumatoid Factor Complement C4 Miscellaneous Test Crossmatch 09/23/16 09/23/16 09/24/16 21:19 23:43 05:16 WBC RBC Hgb Hct MCV MCH MCHC RDW Plt Count Lymph % (Auto) [place] % (Auto) Lymph # [place] # Baso # Seg Neutrophils % Seg Neuts % (Manual) Lymphocytes % (Manual) Monocytes % (Manual) Eosinophils % (Manual) Basophils % (Manual) Nucleated RBC % Seg Neutrophils # Seg Neutrophils # Man Lymphocytes # (Manual) Monocytes # (Manual) Eosinophils # (Manual) PT INR Fibrinogen dRVVT Confirm Interp Factor V Activity POC ABG pH POC ABG pCO2 17.3 L POC ABG pO2 112 H Sodium Potassium Chloride Carbon Dioxide BUN Creatinine Glucose POC Glucose 143 H 164 H Lactic Acid Calcium Phosphorus Magnesium Direct Bilirubin AST ALT Alkaline Phosphatase Lactate Dehydrogenase Troponin T C-Reactive Protein Total Protein Albumin Prealbumin Triglycerides Cholesterol LDL Cholesterol Direct HDL Cholesterol Urine pH Urine WBC (Auto) Urine Creatinine Urine Total Protein Fluid Total Protein Vancomycin Trough Rheumatoid Factor Complement C4 Miscellaneous Test Crossmatch 09/24/16 09/24/16 09/24/16 05:21 11:58 17:06 WBC RBC Hgb Hct MCV MCH MCHC RDW Plt Count Lymph % (Auto) [place] % (Auto) Lymph # [place] # Baso # Seg Neutrophils % Seg Neuts % (Manual) Lymphocytes % (Manual) Monocytes % (Manual) Eosinophils % (Manual) Basophils % (Manual) Nucleated RBC % Seg Neutrophils # Seg Neutrophils # Man Lymphocytes # (Manual) Monocytes # (Manual) Eosinophils # (Manual) PT INR Fibrinogen dRVVT Confirm Interp Factor V Activity POC ABG pH POC ABG pCO2 POC ABG pO2 Sodium Potassium Chloride Carbon Dioxide 10 L BUN 103 H Creatinine 4.3 H Glucose 163 H POC Glucose 173 H 167 H Lactic Acid Calcium 6.5 L Phosphorus Magnesium Direct Bilirubin AST ALT Alkaline Phosphatase Lactate Dehydrogenase Troponin T C-Reactive Protein Total Protein Albumin Prealbumin Triglycerides Cholesterol LDL Cholesterol Direct HDL Cholesterol Urine pH Urine WBC (Auto) Urine Creatinine Urine Total Protein Fluid Total Protein Vancomycin Trough Rheumatoid Factor Complement C4 Miscellaneous Test Crossmatch 09/24/16 09/24/16 09/24/16 20:15 21:02 23:48 WBC RBC Hgb Hct MCV MCH MCHC RDW Plt Count Lymph % (Auto) [place] % (Auto) Lymph # [place] # Baso # Seg Neutrophils % Seg Neuts % (Manual) Lymphocytes % (Manual) Monocytes % (Manual) Eosinophils % (Manual) Basophils % (Manual) Nucleated RBC % Seg Neutrophils # Seg Neutrophils # Man Lymphocytes # (Manual) Monocytes # (Manual) Eosinophils # (Manual) PT INR Fibrinogen dRVVT Confirm Interp Factor V Activity POC ABG pH 7.288 L POC ABG pCO2 30.2 L 21.5 L POC ABG pO2 32 L 39 L Sodium Potassium Chloride Carbon Dioxide BUN Creatinine Glucose POC Glucose 109 H Lactic Acid Calcium Phosphorus Magnesium Direct Bilirubin AST ALT Alkaline Phosphatase Lactate Dehydrogenase Troponin T C-Reactive Protein Total Protein Albumin Prealbumin Triglycerides Cholesterol LDL Cholesterol Direct HDL Cholesterol Urine pH Urine WBC (Auto) Urine Creatinine Urine Total Protein Fluid Total Protein Vancomycin Trough Rheumatoid Factor Complement C4 Miscellaneous Test Crossmatch 09/25/16 09/25/16 09/25/16 04:20 04:20 04:20 WBC RBC 2.58 L Hgb 7.0 L Hct 21.0 L MCV MCH 27 L MCHC RDW 23.8 H Plt Count Lymph % (Auto) [place] % (Auto) Lymph # [place] # Baso # Seg Neutrophils % Seg Neuts % (Manual) Lymphocytes % (Manual) 12.0 L Monocytes % (Manual) Eosinophils % (Manual) 7.0 H Basophils % (Manual) 2.0 H Nucleated RBC % Seg Neutrophils # Seg Neutrophils # Man Lymphocytes # (Manual) 0.9 L Monocytes # (Manual) Eosinophils # (Manual) 0.5 H PT INR Fibrinogen dRVVT Confirm Interp Factor V Activity POC ABG pH POC ABG pCO2 POC ABG pO2 Sodium Potassium Chloride Carbon Dioxide 15 L BUN 72 H Creatinine 3.8 H Glucose POC Glucose Lactic Acid Calcium 6.0 L Phosphorus 4.60 H Magnesium 1.60 L Direct Bilirubin AST ALT Alkaline Phosphatase Lactate Dehydrogenase Troponin T C-Reactive Protein Total Protein Albumin Prealbumin Triglycerides Cholesterol LDL Cholesterol Direct HDL Cholesterol Urine pH Urine WBC (Auto) Urine Creatinine Urine Total Protein Fluid Total Protein Vancomycin Trough Rheumatoid Factor Complement C4 Miscellaneous Test Crossmatch 09/25/16 09/25/16 09/25/16 04:57 08:02 10:30 WBC RBC Hgb Hct MCV MCH MCHC RDW Plt Count Lymph % (Auto) [place] % (Auto) Lymph # [place] # Baso # Seg Neutrophils % Seg Neuts % (Manual) Lymphocytes % (Manual) Monocytes % (Manual) Eosinophils % (Manual) Basophils % (Manual) Nucleated RBC % Seg Neutrophils # Seg Neutrophils # Man Lymphocytes # (Manual) Monocytes # (Manual) Eosinophils # (Manual) PT INR Fibrinogen dRVVT Confirm Interp Factor V Activity POC ABG pH POC ABG pCO2 24.7 L POC ABG pO2 152 H Sodium Potassium Chloride Carbon Dioxide BUN Creatinine Glucose POC Glucose 113 H Lactic Acid Calcium Phosphorus Magnesium Direct Bilirubin AST ALT Alkaline Phosphatase Lactate Dehydrogenase Troponin T C-Reactive Protein Total Protein Albumin Prealbumin Triglycerides Cholesterol LDL Cholesterol Direct HDL Cholesterol Urine pH Urine WBC (Auto) Urine Creatinine Urine Total Protein Fluid Total Protein Vancomycin Trough Rheumatoid Factor Complement C4 Miscellaneous Test Crossmatch See Detail 09/25/16 09/25/16 09/25/16 12:05 17:44 23:47 WBC RBC Hgb Hct MCV MCH MCHC RDW Plt Count Lymph % (Auto) [place] % (Auto) Lymph # [place] # Baso # Seg Neutrophils % Seg Neuts % (Manual) Lymphocytes % (Manual) Monocytes % (Manual) Eosinophils % (Manual) Basophils % (Manual) Nucleated RBC % Seg Neutrophils # Seg Neutrophils # Man Lymphocytes # (Manual) Monocytes # (Manual) Eosinophils # (Manual) PT INR Fibrinogen dRVVT Confirm Interp Factor V Activity POC ABG pH POC ABG pCO2 POC ABG pO2 Sodium Potassium Chloride Carbon Dioxide BUN Creatinine Glucose POC Glucose 117 H 119 H 150 H Lactic Acid Calcium Phosphorus Magnesium Direct Bilirubin AST ALT Alkaline Phosphatase Lactate Dehydrogenase Troponin T C-Reactive Protein Total Protein Albumin Prealbumin Triglycerides Cholesterol LDL Cholesterol Direct HDL Cholesterol Urine pH Urine WBC (Auto) Urine Creatinine Urine Total Protein Fluid Total Protein Vancomycin Trough Rheumatoid Factor Complement C4 Miscellaneous Test Crossmatch 09/26/16 09/26/16 09/26/16 04:25 04:25 04:25 WBC RBC 2.65 L Hgb 7.4 L Hct 21.6 L MCV MCH MCHC RDW 22.5 H Plt Count Lymph % (Auto) [place] % (Auto) Lymph # [place] # Baso # Seg Neutrophils % Seg Neuts % (Manual) Lymphocytes % (Manual) 6.0 L Monocytes % (Manual) Eosinophils % (Manual) 11.0 H Basophils % (Manual) Nucleated RBC % Seg Neutrophils # Seg Neutrophils # Man Lymphocytes # (Manual) 0.4 L Monocytes # (Manual) Eosinophils # (Manual) 0.6 H PT INR Fibrinogen dRVVT Confirm Interp Factor V Activity POC ABG pH POC ABG pCO2 POC ABG pO2 Sodium Potassium Chloride 97.0 L Carbon Dioxide 19 L BUN 43 H Creatinine 2.6 H Glucose 130 H POC Glucose Lactic Acid 4.40 H* Calcium 6.7 L Phosphorus Magnesium Direct Bilirubin AST ALT Alkaline Phosphatase Lactate Dehydrogenase Troponin T C-Reactive Protein Total Protein Albumin Prealbumin Triglycerides Cholesterol LDL Cholesterol Direct HDL Cholesterol Urine pH Urine WBC (Auto) Urine Creatinine Urine Total Protein Fluid Total Protein Vancomycin Trough Rheumatoid Factor Complement C4 Miscellaneous Test Crossmatch 09/26/16 09/26/16 09/26/16 05:20 11:44 12:12 WBC RBC Hgb Hct MCV MCH MCHC RDW Plt Count Lymph % (Auto) [place] % (Auto) Lymph # [place] # Baso # Seg Neutrophils % Seg Neuts % (Manual) Lymphocytes % (Manual) Monocytes % (Manual) Eosinophils % (Manual) Basophils % (Manual) Nucleated RBC % Seg Neutrophils # Seg Neutrophils # Man Lymphocytes # (Manual) Monocytes # (Manual) Eosinophils # (Manual) PT INR Fibrinogen dRVVT Confirm Interp Factor V Activity POC ABG pH POC ABG pCO2 27.0 L POC ABG pO2 69 L Sodium Potassium Chloride Carbon Dioxide BUN Creatinine Glucose POC Glucose 121 H 128 H Lactic Acid Calcium Phosphorus Magnesium Direct Bilirubin AST ALT Alkaline Phosphatase Lactate Dehydrogenase Troponin T C-Reactive Protein Total Protein Albumin Prealbumin Triglycerides Cholesterol LDL Cholesterol Direct HDL Cholesterol Urine pH Urine WBC (Auto) Urine Creatinine Urine Total Protein Fluid Total Protein Vancomycin Trough Rheumatoid Factor Complement C4 Miscellaneous Test Crossmatch 09/26/16 09/26/16 09/27/16 18:31 23:40 08:20 WBC RBC Hgb Hct MCV MCH MCHC RDW Plt Count Lymph % (Auto) [place] % (Auto) Lymph # [place] # Baso # Seg Neutrophils % Seg Neuts % (Manual) Lymphocytes % (Manual) Monocytes % (Manual) Eosinophils % (Manual) Basophils % (Manual) Nucleated RBC % Seg Neutrophils # Seg Neutrophils # Man Lymphocytes # (Manual) Monocytes # (Manual) Eosinophils # (Manual) PT INR Fibrinogen dRVVT Confirm Interp Factor V Activity POC ABG pH POC ABG pCO2 POC ABG pO2 Sodium Potassium Chloride Carbon Dioxide BUN Creatinine Glucose POC Glucose 120 H 133 H Lactic Acid 4.10 H* Calcium Phosphorus Magnesium Direct Bilirubin AST ALT Alkaline Phosphatase Lactate Dehydrogenase Troponin T C-Reactive Protein Total Protein Albumin Prealbumin Triglycerides Cholesterol LDL Cholesterol Direct HDL Cholesterol Urine pH Urine WBC (Auto) Urine Creatinine Urine Total Protein Fluid Total Protein Vancomycin Trough Rheumatoid Factor Complement C4 Miscellaneous Test Crossmatch 09/27/16 09/27/16 09/27/16 11:23 15:00 18:15 WBC RBC Hgb Hct MCV MCH MCHC RDW Plt Count Lymph % (Auto) [place] % (Auto) Lymph # [place] # Baso # Seg Neutrophils % Seg Neuts % (Manual) Lymphocytes % (Manual) Monocytes % (Manual) Eosinophils % (Manual) Basophils % (Manual) Nucleated RBC % Seg Neutrophils # Seg Neutrophils # Man Lymphocytes # (Manual) Monocytes # (Manual) Eosinophils # (Manual) PT INR Fibrinogen dRVVT Confirm Interp Factor V Activity POC ABG pH 7.459 H POC ABG pCO2 27.1 L POC ABG pO2 140 H Sodium Potassium Chloride Carbon Dioxide BUN Creatinine Glucose POC Glucose 114 H 127 H Lactic Acid Calcium Phosphorus Magnesium Direct Bilirubin AST ALT Alkaline Phosphatase Lactate Dehydrogenase Troponin T C-Reactive Protein Total Protein Albumin Prealbumin Triglycerides Cholesterol LDL Cholesterol Direct HDL Cholesterol Urine pH Urine WBC (Auto) Urine Creatinine Urine Total Protein Fluid Total Protein Vancomycin Trough Rheumatoid Factor Complement C4 Miscellaneous Test Crossmatch 09/27/16 09/27/16 09/28/16 Unknown Unknown 03:45 WBC RBC 2.49 L Hgb 6.8 L Hct 20.7 L MCV MCH 27 L MCHC RDW 22.1 H Plt Count Lymph % (Auto) [place] % (Auto) Lymph # [place] # Baso # Seg Neutrophils % Seg Neuts % (Manual) 32.0 L Lymphocytes % (Manual) 12.0 L Monocytes % (Manual) 11.0 H Eosinophils % (Manual) 10.0 H Basophils % (Manual) Nucleated RBC % Seg Neutrophils # Seg Neutrophils # Man Lymphocytes # (Manual) 1.0 L Monocytes # (Manual) 0.9 H Eosinophils # (Manual) 0.8 H PT INR Fibrinogen dRVVT Confirm Interp Factor V Activity POC ABG pH POC ABG pCO2 POC ABG pO2 Sodium 135 L 135 L Potassium 3.5 L Chloride 93.6 L 94.4 L Carbon Dioxide 17 L 21 L BUN 45 H 28 H Creatinine 3.3 H 2.5 H Glucose 106 H POC Glucose Lactic Acid Calcium 7.3 L 7.1 L Phosphorus Magnesium Direct Bilirubin AST ALT Alkaline Phosphatase Lactate Dehydrogenase Troponin T C-Reactive Protein Total Protein Albumin Prealbumin Triglycerides Cholesterol LDL Cholesterol Direct HDL Cholesterol Urine pH Urine WBC (Auto) Urine Creatinine Urine Total Protein Fluid Total Protein Vancomycin Trough Rheumatoid Factor Complement C4 Miscellaneous Test Crossmatch 09/28/16 09/28/16 09/28/16 03:45 07:25 11:58 WBC 13.3 H RBC 3.01 L Hgb 8.4 L Hct 25.0 L MCV MCH MCHC RDW 20.5 H Plt Count 128 L Lymph % (Auto) [place] % (Auto) Lymph # [place] # Baso # Seg Neutrophils % Seg Neuts % (Manual) Lymphocytes % (Manual) 7.0 L Monocytes % (Manual) Eosinophils % (Manual) 6.0 H Basophils % (Manual) Nucleated RBC % Seg Neutrophils # Seg Neutrophils # Man Lymphocytes # (Manual) 0.9 L Monocytes # (Manual) Eosinophils # (Manual) 0.8 H PT INR Fibrinogen dRVVT Confirm Interp Factor V Activity POC ABG pH POC ABG pCO2 POC ABG pO2 Sodium Potassium Chloride Carbon Dioxide BUN Creatinine Glucose POC Glucose 121 H Lactic Acid 4.50 H* Calcium Phosphorus Magnesium Direct Bilirubin AST ALT Alkaline Phosphatase Lactate Dehydrogenase Troponin T C-Reactive Protein Total Protein Albumin Prealbumin Triglycerides Cholesterol LDL Cholesterol Direct HDL Cholesterol Urine pH Urine WBC (Auto) Urine Creatinine Urine Total Protein Fluid Total Protein Vancomycin Trough Rheumatoid Factor Complement C4 Miscellaneous Test Crossmatch 09/29/16 09/29/16 09/29/16 06:45 06:45 06:45 WBC 14.9 H RBC 2.74 L Hgb 7.6 L Hct 23.2 L MCV MCH MCHC RDW 20.5 H Plt Count 81 L Lymph % (Auto) [place] % (Auto) Lymph # [place] # Baso # Seg Neutrophils % Seg Neuts % (Manual) 81.0 H Lymphocytes % (Manual) 4.0 L Monocytes % (Manual) Eosinophils % (Manual) Basophils % (Manual) Nucleated RBC % Seg Neutrophils # Seg Neutrophils # Man 12.1 H Lymphocytes # (Manual) 0.6 L Monocytes # (Manual) Eosinophils # (Manual) PT INR Fibrinogen dRVVT Confirm Interp Factor V Activity POC ABG pH POC ABG pCO2 POC ABG pO2 Sodium 133 L Potassium 3.4 L Chloride 92.5 L Carbon Dioxide 21 L BUN 33 H Creatinine 3.0 H Glucose POC Glucose Lactic Acid Calcium 6.6 L Phosphorus Magnesium 1.40 L Direct Bilirubin 0.9 H AST ALT Alkaline Phosphatase Lactate Dehydrogenase Troponin T C-Reactive Protein Total Protein 4.3 L Albumin 1.3 L Prealbumin Triglycerides Cholesterol LDL Cholesterol Direct HDL Cholesterol Urine pH Urine WBC (Auto) Urine Creatinine Urine Total Protein Fluid Total Protein Vancomycin Trough Rheumatoid Factor Complement C4 Miscellaneous Test Crossmatch 09/29/16 09/29/16 09/30/16 17:52 20:12 00:07 WBC RBC Hgb Hct MCV MCH MCHC RDW Plt Count Lymph % (Auto) [place] % (Auto) Lymph # [place] # Baso # Seg Neutrophils % Seg Neuts % (Manual) Lymphocytes % (Manual) Monocytes % (Manual) Eosinophils % (Manual) Basophils % (Manual) Nucleated RBC % Seg Neutrophils # Seg Neutrophils # Man Lymphocytes # (Manual) Monocytes # (Manual) Eosinophils # (Manual) PT INR Fibrinogen dRVVT Confirm Interp Factor V Activity POC ABG pH POC ABG pCO2 POC ABG pO2 Sodium Potassium Chloride Carbon Dioxide BUN Creatinine Glucose POC Glucose 50 L 51 L Lactic Acid Calcium Phosphorus Magnesium Direct Bilirubin AST ALT Alkaline Phosphatase Lactate Dehydrogenase Troponin T 0.204 H* C-Reactive Protein Total Protein Albumin Prealbumin Triglycerides Cholesterol 31 L LDL Cholesterol Direct 4 L HDL Cholesterol 3 L Urine pH Urine WBC (Auto) Urine Creatinine Urine Total Protein Fluid Total Protein Vancomycin Trough Rheumatoid Factor Complement C4 Miscellaneous Test Crossmatch 09/30/16 09/30/16 09/30/16 01:30 05:15 06:10 WBC RBC Hgb Hct MCV MCH MCHC RDW Plt Count Lymph % (Auto) [place] % (Auto) Lymph # [place] # Baso # Seg Neutrophils % Seg Neuts % (Manual) Lymphocytes % (Manual) Monocytes % (Manual) Eosinophils % (Manual) Basophils % (Manual) Nucleated RBC % Seg Neutrophils # Seg Neutrophils # Man Lymphocytes # (Manual) Monocytes # (Manual) Eosinophils # (Manual) PT INR Fibrinogen dRVVT Confirm Interp Factor V Activity POC ABG pH POC ABG pCO2 POC ABG pO2 Sodium 133 L Potassium 3.2 L Chloride 93.2 L Carbon Dioxide 19 L BUN 36 H Creatinine 3.2 H Glucose 104 H POC Glucose 167 H 146 H Lactic Acid Calcium 6.4 L Phosphorus Magnesium 1.60 L Direct Bilirubin AST ALT Alkaline Phosphatase Lactate Dehydrogenase Troponin T C-Reactive Protein Total Protein Albumin Prealbumin Triglycerides Cholesterol LDL Cholesterol Direct HDL Cholesterol Urine pH Urine WBC (Auto) Urine Creatinine Urine Total Protein Fluid Total Protein Vancomycin Trough Rheumatoid Factor Complement C4 Miscellaneous Test Crossmatch 09/30/16 09/30/16 09/30/16 11:26 13:39 18:38 WBC RBC Hgb Hct MCV MCH MCHC RDW Plt Count Lymph % (Auto) [place] % (Auto) Lymph # [place] # Baso # Seg Neutrophils % Seg Neuts % (Manual) Lymphocytes % (Manual) Monocytes % (Manual) Eosinophils % (Manual) Basophils % (Manual) Nucleated RBC % Seg Neutrophils # Seg Neutrophils # Man Lymphocytes # (Manual) Monocytes # (Manual) Eosinophils # (Manual) PT INR Fibrinogen dRVVT Confirm Interp Factor V Activity POC ABG pH 7.479 H POC ABG pCO2 29.8 L POC ABG pO2 117 H Sodium Potassium Chloride Carbon Dioxide BUN Creatinine Glucose POC Glucose 140 H 122 H Lactic Acid Calcium Phosphorus Magnesium Direct Bilirubin AST ALT Alkaline Phosphatase Lactate Dehydrogenase Troponin T C-Reactive Protein Total Protein Albumin Prealbumin Triglycerides Cholesterol LDL Cholesterol Direct HDL Cholesterol Urine pH Urine WBC (Auto) Urine Creatinine Urine Total Protein Fluid Total Protein Vancomycin Trough Rheumatoid Factor Complement C4 Miscellaneous Test Crossmatch 10/01/16 10/01/16 10/01/16 06:00 06:00 12:37 WBC 12.6 H RBC 2.75 L Hgb 7.3 L Hct 23.3 L MCV MCH 27 L MCHC RDW 20.6 H Plt Count 72 L Lymph % (Auto) [place] % (Auto) Lymph # [place] # Baso # Seg Neutrophils % Seg Neuts % (Manual) 31.0 L Lymphocytes % (Manual) 8.0 L Monocytes % (Manual) Eosinophils % (Manual) Basophils % (Manual) Nucleated RBC % 3.0 H Seg Neutrophils # Seg Neutrophils # Man Lymphocytes # (Manual) 1.0 L Monocytes # (Manual) Eosinophils # (Manual) PT INR Fibrinogen dRVVT Confirm Interp Factor V Activity POC ABG pH POC ABG pCO2 POC ABG pO2 Sodium 127 L Potassium Chloride 86.8 L Carbon Dioxide 20 L BUN 42 H Creatinine 3.5 H Glucose POC Glucose 65 L Lactic Acid Calcium 7.0 L Phosphorus Magnesium Direct Bilirubin AST ALT Alkaline Phosphatase Lactate Dehydrogenase Troponin T C-Reactive Protein Total Protein Albumin Prealbumin Triglycerides Cholesterol LDL Cholesterol Direct HDL Cholesterol Urine pH Urine WBC (Auto) Urine Creatinine Urine Total Protein Fluid Total Protein Vancomycin Trough Rheumatoid Factor Complement C4 Miscellaneous Test Crossmatch 10/01/16 10/01/16 10/02/16 17:39 23:32 00:59 WBC RBC Hgb Hct MCV MCH MCHC RDW Plt Count Lymph % (Auto) [place] % (Auto) Lymph # [place] # Baso # Seg Neutrophils % Seg Neuts % (Manual) Lymphocytes % (Manual) Monocytes % (Manual) Eosinophils % (Manual) Basophils % (Manual) Nucleated RBC % Seg Neutrophils # Seg Neutrophils # Man Lymphocytes # (Manual) Monocytes # (Manual) Eosinophils # (Manual) PT INR Fibrinogen dRVVT Confirm Interp Factor V Activity POC ABG pH POC ABG pCO2 POC ABG pO2 Sodium Potassium Chloride Carbon Dioxide BUN Creatinine Glucose POC Glucose 107 H 52 L 145 H Lactic Acid Calcium Phosphorus Magnesium Direct Bilirubin AST ALT Alkaline Phosphatase Lactate Dehydrogenase Troponin T C-Reactive Protein Total Protein Albumin Prealbumin Triglycerides Cholesterol LDL Cholesterol Direct HDL Cholesterol Urine pH Urine WBC (Auto) Urine Creatinine Urine Total Protein Fluid Total Protein Vancomycin Trough Rheumatoid Factor Complement C4 Miscellaneous Test Crossmatch 10/02/16 10/02/16 10/02/16 10:30 10:50 10:50 WBC 14.7 H RBC 2.76 L Hgb 7.4 L Hct 23.6 L MCV MCH 27 L MCHC RDW 20.2 H Plt Count 79 L Lymph % (Auto) [place] % (Auto) Lymph # [place] # Baso # Seg Neutrophils % Seg Neuts % (Manual) 86.0 H Lymphocytes % (Manual) 6.0 L Monocytes % (Manual) Eosinophils % (Manual) Basophils % (Manual) Nucleated RBC % Seg Neutrophils # Seg Neutrophils # Man 12.6 H Lymphocytes # (Manual) 0.9 L Monocytes # (Manual) Eosinophils # (Manual) PT INR Fibrinogen dRVVT Confirm Interp Factor V Activity POC ABG pH 7.486 H POC ABG pCO2 30.1 L POC ABG pO2 108 H Sodium 131 L Potassium 3.4 L Chloride 89.9 L Carbon Dioxide BUN 26 H Creatinine 2.6 H Glucose POC Glucose Lactic Acid Calcium 7.0 L Phosphorus Magnesium Direct Bilirubin AST ALT Alkaline Phosphatase Lactate Dehydrogenase Troponin T C-Reactive Protein Total Protein Albumin Prealbumin Triglycerides Cholesterol LDL Cholesterol Direct HDL Cholesterol Urine pH Urine WBC (Auto) Urine Creatinine Urine Total Protein Fluid Total Protein Vancomycin Trough Rheumatoid Factor Complement C4 Miscellaneous Test Crossmatch 10/02/16 10/03/16 10/03/16 23:45 00:45 05:10 WBC 12.9 H RBC 2.77 L Hgb 7.6 L Hct 23.7 L MCV MCH 27 L MCHC RDW 19.7 H Plt Count 89 L Lymph % (Auto) [place] % (Auto) Lymph # [place] # Baso # Seg Neutrophils % Seg Neuts % (Manual) Lymphocytes % (Manual) 8.0 L Monocytes % (Manual) Eosinophils % (Manual) Basophils % (Manual) Nucleated RBC % Seg Neutrophils # 11.9 H Seg Neutrophils # Man Lymphocytes # (Manual) 1.0 L Monocytes # (Manual) Eosinophils # (Manual) PT INR Fibrinogen dRVVT Confirm Interp Factor V Activity POC ABG pH POC ABG pCO2 POC ABG pO2 Sodium Potassium Chloride Carbon Dioxide BUN Creatinine Glucose POC Glucose 55 L 199 H Lactic Acid Calcium Phosphorus Magnesium Direct Bilirubin AST ALT Alkaline Phosphatase Lactate Dehydrogenase Troponin T C-Reactive Protein Total Protein Albumin Prealbumin Triglycerides Cholesterol LDL Cholesterol Direct HDL Cholesterol Urine pH Urine WBC (Auto) Urine Creatinine Urine Total Protein Fluid Total Protein Vancomycin Trough Rheumatoid Factor Complement C4 Miscellaneous Test Crossmatch 10/03/16 10/03/16 10/03/16 05:10 12:14 13:18 WBC RBC Hgb Hct MCV MCH MCHC RDW Plt Count Lymph % (Auto) [place] % (Auto) Lymph # [place] # Baso # Seg Neutrophils % Seg Neuts % (Manual) Lymphocytes % (Manual) Monocytes % (Manual) Eosinophils % (Manual) Basophils % (Manual) Nucleated RBC % Seg Neutrophils # Seg Neutrophils # Man Lymphocytes # (Manual) Monocytes # (Manual) Eosinophils # (Manual) PT INR Fibrinogen dRVVT Confirm Interp Factor V Activity POC ABG pH POC ABG pCO2 POC ABG pO2 Sodium 129 L Potassium 3.3 L Chloride 88.8 L Carbon Dioxide 20 L BUN 29 H Creatinine 2.8 H Glucose POC Glucose 68 L 127 H Lactic Acid Calcium 7.2 L Phosphorus Magnesium Direct Bilirubin AST ALT Alkaline Phosphatase Lactate Dehydrogenase Troponin T C-Reactive Protein Total Protein Albumin Prealbumin Triglycerides Cholesterol LDL Cholesterol Direct HDL Cholesterol Urine pH Urine WBC (Auto) Urine Creatinine Urine Total Protein Fluid Total Protein Vancomycin Trough Rheumatoid Factor Complement C4 Miscellaneous Test Crossmatch 10/03/16 10/03/16 10/03/16 14:42 18:21 19:09 WBC RBC Hgb Hct MCV MCH MCHC RDW Plt Count Lymph % (Auto) [place] % (Auto) Lymph # [place] # Baso # Seg Neutrophils % Seg Neuts % (Manual) Lymphocytes % (Manual) Monocytes % (Manual) Eosinophils % (Manual) Basophils % (Manual) Nucleated RBC % Seg Neutrophils # Seg Neutrophils # Man Lymphocytes # (Manual) Monocytes # (Manual) Eosinophils # (Manual) PT INR Fibrinogen dRVVT Confirm Interp Factor V Activity POC ABG pH 7.499 H POC ABG pCO2 28.4 L POC ABG pO2 44 L Sodium Potassium Chloride Carbon Dioxide BUN Creatinine Glucose POC Glucose 64 L 205 H Lactic Acid Calcium Phosphorus Magnesium Direct Bilirubin AST ALT Alkaline Phosphatase Lactate Dehydrogenase Troponin T C-Reactive Protein Total Protein Albumin Prealbumin Triglycerides Cholesterol LDL Cholesterol Direct HDL Cholesterol Urine pH Urine WBC (Auto) Urine Creatinine Urine Total Protein Fluid Total Protein Vancomycin Trough Rheumatoid Factor Complement C4 Miscellaneous Test Crossmatch 10/03/16 10/04/16 10/04/16 23:33 04:18 06:30 WBC RBC 2.54 L Hgb 7.1 L Hct 21.7 L MCV MCH MCHC RDW 19.5 H Plt Count 76 L Lymph % (Auto) [place] % (Auto) Lymph # [place] # Baso # Seg Neutrophils % Seg Neuts % (Manual) 88.0 H Lymphocytes % (Manual) 6.0 L Monocytes % (Manual) Eosinophils % (Manual) Basophils % (Manual) Nucleated RBC % Seg Neutrophils # Seg Neutrophils # Man 8.8 H Lymphocytes # (Manual) 0.6 L Monocytes # (Manual) Eosinophils # (Manual) PT INR Fibrinogen dRVVT Confirm Interp Factor V Activity POC ABG pH 7.461 H POC ABG pCO2 33.6 L POC ABG pO2 211 H Sodium Potassium Chloride Carbon Dioxide BUN Creatinine Glucose POC Glucose 136 H Lactic Acid Calcium Phosphorus Magnesium Direct Bilirubin AST ALT Alkaline Phosphatase Lactate Dehydrogenase Troponin T C-Reactive Protein Total Protein Albumin Prealbumin Triglycerides Cholesterol LDL Cholesterol Direct HDL Cholesterol Urine pH Urine WBC (Auto) Urine Creatinine Urine Total Protein Fluid Total Protein Vancomycin Trough Rheumatoid Factor Complement C4 Miscellaneous Test Crossmatch 10/04/16 10/04/16 10/04/16 06:30 11:45 17:54 WBC RBC Hgb Hct MCV MCH MCHC RDW Plt Count Lymph % (Auto) [place] % (Auto) Lymph # [place] # Baso # Seg Neutrophils % Seg Neuts % (Manual) Lymphocytes % (Manual) Monocytes % (Manual) Eosinophils % (Manual) Basophils % (Manual) Nucleated RBC % Seg Neutrophils # Seg Neutrophils # Man Lymphocytes # (Manual) Monocytes # (Manual) Eosinophils # (Manual) PT INR Fibrinogen dRVVT Confirm Interp Factor V Activity POC ABG pH POC ABG pCO2 POC ABG pO2 Sodium 128 L Potassium Chloride 87.4 L Carbon Dioxide 20 L BUN 34 H Creatinine 2.9 H Glucose 127 H POC Glucose 158 H 160 H Lactic Acid Calcium 7.4 L Phosphorus Magnesium Direct Bilirubin AST ALT Alkaline Phosphatase Lactate Dehydrogenase Troponin T C-Reactive Protein Total Protein Albumin Prealbumin Triglycerides Cholesterol LDL Cholesterol Direct HDL Cholesterol Urine pH Urine WBC (Auto) Urine Creatinine Urine Total Protein Fluid Total Protein Vancomycin Trough Rheumatoid Factor Complement C4 Miscellaneous Test Crossmatch 10/04/16 10/05/16 10/05/16 23:25 04:30 05:00 WBC RBC 2.64 L Hgb 7.5 L Hct 22.6 L MCV MCH MCHC RDW 19.3 H Plt Count 80 L Lymph % (Auto) [place] % (Auto) Lymph # [place] # Baso # Seg Neutrophils % Seg Neuts % (Manual) Lymphocytes % (Manual) 12.0 L Monocytes % (Manual) Eosinophils % (Manual) Basophils % (Manual) Nucleated RBC % Seg Neutrophils # Seg Neutrophils # Man Lymphocytes # (Manual) Monocytes # (Manual) Eosinophils # (Manual) PT INR Fibrinogen dRVVT Confirm Interp Factor V Activity POC ABG pH 7.475 H POC ABG pCO2 33.3 L POC ABG pO2 140 H Sodium Potassium Chloride Carbon Dioxide BUN Creatinine Glucose POC Glucose 141 H Lactic Acid Calcium Phosphorus Magnesium Direct Bilirubin AST ALT Alkaline Phosphatase Lactate Dehydrogenase Troponin T C-Reactive Protein Total Protein Albumin Prealbumin Triglycerides Cholesterol LDL Cholesterol Direct HDL Cholesterol Urine pH Urine WBC (Auto) Urine Creatinine Urine Total Protein Fluid Total Protein Vancomycin Trough Rheumatoid Factor Complement C4 Miscellaneous Test Crossmatch 10/05/16 10/05/16 10/05/16 05:00 05:09 12:58 WBC RBC Hgb Hct MCV MCH MCHC RDW Plt Count Lymph % (Auto) [place] % (Auto) Lymph # [place] # Baso # Seg Neutrophils % Seg Neuts % (Manual) Lymphocytes % (Manual) Monocytes % (Manual) Eosinophils % (Manual) Basophils % (Manual) Nucleated RBC % Seg Neutrophils # Seg Neutrophils # Man Lymphocytes # (Manual) Monocytes # (Manual) Eosinophils # (Manual) PT INR Fibrinogen dRVVT Confirm Interp Factor V Activity POC ABG pH POC ABG pCO2 POC ABG pO2 Sodium 131 L Potassium Chloride 94.0 L Carbon Dioxide 20 L BUN 22 H Creatinine 2.0 H Glucose 123 H POC Glucose 166 H 179 H Lactic Acid Calcium 7.7 L Phosphorus 2.20 L D Magnesium Direct Bilirubin AST ALT Alkaline Phosphatase Lactate Dehydrogenase Troponin T C-Reactive Protein Total Protein Albumin Prealbumin Triglycerides Cholesterol LDL Cholesterol Direct HDL Cholesterol Urine pH Urine WBC (Auto) Urine Creatinine Urine Total Protein Fluid Total Protein Vancomycin Trough Rheumatoid Factor Complement C4 Miscellaneous Test Crossmatch 10/05/16 10/05/16 10/05/16 15:50 18:53 23:12 WBC RBC Hgb Hct MCV MCH MCHC RDW Plt Count Lymph % (Auto) [place] % (Auto) Lymph # [place] # Baso # Seg Neutrophils % Seg Neuts % (Manual) Lymphocytes % (Manual) Monocytes % (Manual) Eosinophils % (Manual) Basophils % (Manual) Nucleated RBC % Seg Neutrophils # Seg Neutrophils # Man Lymphocytes # (Manual) Monocytes # (Manual) Eosinophils # (Manual) PT INR Fibrinogen dRVVT Confirm Interp Factor V Activity POC ABG pH POC ABG pCO2 POC ABG pO2 Sodium Potassium Chloride Carbon Dioxide BUN Creatinine Glucose POC Glucose 150 H 164 H Lactic Acid Calcium Phosphorus Magnesium Direct Bilirubin AST ALT Alkaline Phosphatase Lactate Dehydrogenase Troponin T C-Reactive Protein Total Protein Albumin Prealbumin Triglycerides Cholesterol LDL Cholesterol Direct HDL Cholesterol Urine pH Urine WBC (Auto) Urine Creatinine Urine Total Protein Fluid Total Protein Vancomycin Trough Rheumatoid Factor Complement C4 Miscellaneous Test Crossmatch See Detail 10/06/16 10/06/16 10/06/16 03:50 03:50 04:53 WBC RBC 3.00 L Hgb 8.6 L Hct 25.8 L MCV MCH MCHC RDW 17.9 H Plt Count 65 L Lymph % (Auto) [place] % (Auto) Lymph # [place] # Baso # Seg Neutrophils % Seg Neuts % (Manual) 30.0 L Lymphocytes % (Manual) 5.0 L Monocytes % (Manual) Eosinophils % (Manual) Basophils % (Manual) Nucleated RBC % Seg Neutrophils # Seg Neutrophils # Man Lymphocytes # (Manual) 0.4 L Monocytes # (Manual) Eosinophils # (Manual) PT INR Fibrinogen dRVVT Confirm Interp Factor V Activity POC ABG pH 7.310 L POC ABG pCO2 49.0 H POC ABG pO2 Sodium 133 L Potassium Chloride 95.9 L Carbon Dioxide BUN 26 H Creatinine 2.0 H Glucose 116 H POC Glucose Lactic Acid Calcium 7.8 L Phosphorus Magnesium Direct Bilirubin AST ALT Alkaline Phosphatase Lactate Dehydrogenase Troponin T C-Reactive Protein Total Protein Albumin Prealbumin Triglycerides Cholesterol LDL Cholesterol Direct HDL Cholesterol Urine pH Urine WBC (Auto) Urine Creatinine Urine Total Protein Fluid Total Protein Vancomycin Trough Rheumatoid Factor Complement C4 Miscellaneous Test Crossmatch 10/06/16 10/06/16 10/06/16 05:23 11:52 18:34 WBC RBC Hgb Hct MCV MCH MCHC RDW Plt Count Lymph % (Auto) [place] % (Auto) Lymph # [place] # Baso # Seg Neutrophils % Seg Neuts % (Manual) Lymphocytes % (Manual) Monocytes % (Manual) Eosinophils % (Manual) Basophils % (Manual) Nucleated RBC % Seg Neutrophils # Seg Neutrophils # Man Lymphocytes # (Manual) Monocytes # (Manual) Eosinophils # (Manual) PT INR Fibrinogen dRVVT Confirm Interp Factor V Activity POC ABG pH POC ABG pCO2 POC ABG pO2 Sodium Potassium Chloride Carbon Dioxide BUN Creatinine Glucose POC Glucose 126 H 116 H 129 H Lactic Acid Calcium Phosphorus Magnesium Direct Bilirubin AST ALT Alkaline Phosphatase Lactate Dehydrogenase Troponin T C-Reactive Protein Total Protein Albumin Prealbumin Triglycerides Cholesterol LDL Cholesterol Direct HDL Cholesterol Urine pH Urine WBC (Auto) Urine Creatinine Urine Total Protein Fluid Total Protein Vancomycin Trough Rheumatoid Factor Complement C4 Miscellaneous Test Crossmatch 10/07/16 10/07/16 10/07/16 03:45 05:00 10:00 WBC 17.0 H RBC 2.68 L Hgb 7.3 L Hct 25.3 L MCV MCH 27 L MCHC 29 L RDW 19.6 H Plt Count 74 L Lymph % (Auto) [place] % (Auto) Lymph # [place] # Baso # Seg Neutrophils % Seg Neuts % (Manual) Lymphocytes % (Manual) 12.0 L Monocytes % (Manual) Eosinophils % (Manual) Basophils % (Manual) Nucleated RBC % 4.0 H Seg Neutrophils # Seg Neutrophils # Man 10.7 H Lymphocytes # (Manual) Monocytes # (Manual) Eosinophils # (Manual) PT INR Fibrinogen dRVVT Confirm Interp Factor V Activity POC ABG pH POC ABG pCO2 POC ABG pO2 Sodium 130 L Potassium 3.2 L Chloride 93.9 L Carbon Dioxide 20 L BUN 44 H Creatinine 2.7 H Glucose 129 H POC Glucose Lactic Acid Calcium 7.4 L Phosphorus Magnesium Direct Bilirubin AST ALT 6 L Alkaline Phosphatase 195 H Lactate Dehydrogenase Troponin T C-Reactive Protein Total Protein 4.9 L Albumin 1.0 L Prealbumin Triglycerides Cholesterol LDL Cholesterol Direct HDL Cholesterol Urine pH Urine WBC (Auto) Urine Creatinine Urine Total Protein Fluid Total Protein Vancomycin Trough Rheumatoid Factor Complement C4 Miscellaneous Test Flexitest 1 H Crossmatch 10/07/16 10/07/16 10/07/16 10:00 11:24 18:10 WBC RBC Hgb Hct MCV MCH MCHC RDW Plt Count Lymph % (Auto) [place] % (Auto) Lymph # [place] # Baso # Seg Neutrophils % Seg Neuts % (Manual) Lymphocytes % (Manual) Monocytes % (Manual) Eosinophils % (Manual) Basophils % (Manual) Nucleated RBC % Seg Neutrophils # Seg Neutrophils # Man Lymphocytes # (Manual) Monocytes # (Manual) Eosinophils # (Manual) PT INR Fibrinogen dRVVT Confirm Interp Factor V Activity POC ABG pH POC ABG pCO2 POC ABG pO2 Sodium Potassium Chloride Carbon Dioxide BUN Creatinine Glucose POC Glucose 116 H 130 H Lactic Acid Calcium Phosphorus Magnesium Direct Bilirubin AST ALT Alkaline Phosphatase Lactate Dehydrogenase Troponin T C-Reactive Protein 19.40 H Total Protein Albumin Prealbumin Triglycerides Cholesterol LDL Cholesterol Direct HDL Cholesterol Urine pH Urine WBC (Auto) Urine Creatinine Urine Total Protein Fluid Total Protein Vancomycin Trough Rheumatoid Factor Complement C4 Miscellaneous Test Crossmatch 10/07/16 10/08/16 10/08/16 18:30 00:00 04:00 WBC RBC Hgb Hct MCV MCH MCHC RDW Plt Count Lymph % (Auto) [place] % (Auto) Lymph # [place] # Baso # Seg Neutrophils % Seg Neuts % (Manual) Lymphocytes % (Manual) Monocytes % (Manual) Eosinophils % (Manual) Basophils % (Manual) Nucleated RBC % Seg Neutrophils # Seg Neutrophils # Man Lymphocytes # (Manual) Monocytes # (Manual) Eosinophils # (Manual) PT INR Fibrinogen dRVVT Confirm Interp Factor V Activity POC ABG pH POC ABG pCO2 POC ABG pO2 Sodium 132 L Potassium 3.3 L Chloride 93.6 L Carbon Dioxide 17 L BUN 59 H Creatinine 2.7 H Glucose 121 H POC Glucose 122 H Lactic Acid Calcium 7.6 L Phosphorus Magnesium Direct Bilirubin AST ALT Alkaline Phosphatase Lactate Dehydrogenase Troponin T C-Reactive Protein Total Protein Albumin Prealbumin Triglycerides Cholesterol LDL Cholesterol Direct HDL Cholesterol Urine pH Urine WBC (Auto) > 182.0 H Urine Creatinine Urine Total Protein Fluid Total Protein Vancomycin Trough Rheumatoid Factor Complement C4 Miscellaneous Test Crossmatch 10/08/16 10/08/16 10/08/16 04:30 05:30 11:51 WBC RBC 5.15 H Hgb 14.4 H D Hct 44.5 H D MCV MCH MCHC RDW 19.5 H Plt Count 56 L Lymph % (Auto) [place] % (Auto) Lymph # [place] # Baso # Seg Neutrophils % Seg Neuts % (Manual) 24.0 L Lymphocytes % (Manual) 8.0 L Monocytes % (Manual) Eosinophils % (Manual) Basophils % (Manual) Nucleated RBC % 9.0 H Seg Neutrophils # Seg Neutrophils # Man Lymphocytes # (Manual) 0.7 L Monocytes # (Manual) Eosinophils # (Manual) PT INR Fibrinogen dRVVT Confirm Interp Factor V Activity POC ABG pH POC ABG pCO2 POC ABG pO2 Sodium Potassium Chloride Carbon Dioxide BUN Creatinine Glucose POC Glucose 125 H 150 H Lactic Acid Calcium Phosphorus Magnesium Direct Bilirubin AST ALT Alkaline Phosphatase Lactate Dehydrogenase Troponin T C-Reactive Protein Total Protein Albumin Prealbumin Triglycerides Cholesterol LDL Cholesterol Direct HDL Cholesterol Urine pH Urine WBC (Auto) Urine Creatinine Urine Total Protein Fluid Total Protein Vancomycin Trough Rheumatoid Factor Complement C4 Miscellaneous Test Crossmatch 10/08/16 10/08/16 10/08/16 12:49 17:07 19:30 WBC RBC Hgb 7.1 L D Hct 22.4 L D MCV MCH MCHC RDW Plt Count Lymph % (Auto) [place] % (Auto) Lymph # [place] # Baso # Seg Neutrophils % Seg Neuts % (Manual) Lymphocytes % (Manual) Monocytes % (Manual) Eosinophils % (Manual) Basophils % (Manual) Nucleated RBC % Seg Neutrophils # Seg Neutrophils # Man Lymphocytes # (Manual) Monocytes # (Manual) Eosinophils # (Manual) PT INR Fibrinogen dRVVT Confirm Interp Factor V Activity POC ABG pH POC ABG pCO2 28.2 L POC ABG pO2 111 H Sodium Potassium Chloride Carbon Dioxide BUN Creatinine Glucose POC Glucose 145 H Lactic Acid Calcium Phosphorus Magnesium Direct Bilirubin AST ALT Alkaline Phosphatase Lactate Dehydrogenase Troponin T C-Reactive Protein Total Protein Albumin Prealbumin Triglycerides Cholesterol LDL Cholesterol Direct HDL Cholesterol Urine pH Urine WBC (Auto) Urine Creatinine Urine Total Protein Fluid Total Protein Vancomycin Trough Rheumatoid Factor Complement C4 Miscellaneous Test Crossmatch 10/08/16 10/09/16 10/09/16 19:30 03:45 03:45 WBC 12.6 H RBC 2.36 L Hgb 6.7 L Hct 21.1 L MCV MCH MCHC RDW 19.5 H Plt Count 75 L Lymph % (Auto) [place] % (Auto) Lymph # [place] # Baso # Seg Neutrophils % Seg Neuts % (Manual) Lymphocytes % (Manual) Monocytes % (Manual) 10.0 H Eosinophils % (Manual) Basophils % (Manual) Nucleated RBC % 3.0 H Seg Neutrophils # Seg Neutrophils # Man Lymphocytes # (Manual) Monocytes # (Manual) 1.3 H Eosinophils # (Manual) PT 18.0 H INR 1.41 H Fibrinogen dRVVT Confirm Interp Factor V Activity POC ABG pH POC ABG pCO2 POC ABG pO2 Sodium 135 L Potassium Chloride Carbon Dioxide 17 L BUN 81 H Creatinine 3.2 H Glucose 109 H POC Glucose Lactic Acid Calcium 7.4 L Phosphorus 4.60 H D Magnesium Direct Bilirubin AST ALT Alkaline Phosphatase Lactate Dehydrogenase Troponin T C-Reactive Protein Total Protein Albumin Prealbumin Triglycerides Cholesterol LDL Cholesterol Direct HDL Cholesterol Urine pH Urine WBC (Auto) Urine Creatinine Urine Total Protein Fluid Total Protein Vancomycin Trough Rheumatoid Factor Complement C4 Miscellaneous Test Crossmatch 10/09/16 10/09/16 10/09/16 03:45 05:14 07:20 WBC RBC Hgb Hct MCV MCH MCHC RDW Plt Count Lymph % (Auto) [place] % (Auto) Lymph # [place] # Baso # Seg Neutrophils % Seg Neuts % (Manual) Lymphocytes % (Manual) Monocytes % (Manual) Eosinophils % (Manual) Basophils % (Manual) Nucleated RBC % Seg Neutrophils # Seg Neutrophils # Man Lymphocytes # (Manual) Monocytes # (Manual) Eosinophils # (Manual) PT 19.0 H INR 1.51 H Fibrinogen dRVVT Confirm Interp Factor V Activity POC ABG pH POC ABG pCO2 POC ABG pO2 Sodium Potassium Chloride Carbon Dioxide BUN Creatinine Glucose POC Glucose 151 H Lactic Acid Calcium Phosphorus Magnesium Direct Bilirubin AST ALT Alkaline Phosphatase Lactate Dehydrogenase Troponin T C-Reactive Protein Total Protein Albumin Prealbumin Triglycerides Cholesterol LDL Cholesterol Direct HDL Cholesterol Urine pH Urine WBC (Auto) Urine Creatinine Urine Total Protein Fluid Total Protein Vancomycin Trough Rheumatoid Factor Complement C4 Miscellaneous Test Crossmatch See Detail 10/09/16 10/09/16 10/09/16 11:46 16:20 16:43 WBC RBC Hgb 7.2 L Hct 22.2 L MCV MCH MCHC RDW Plt Count Lymph % (Auto) [place] % (Auto) Lymph # [place] # Baso # Seg Neutrophils % Seg Neuts % (Manual) Lymphocytes % (Manual) Monocytes % (Manual) Eosinophils % (Manual) Basophils % (Manual) Nucleated RBC % Seg Neutrophils # Seg Neutrophils # Man Lymphocytes # (Manual) Monocytes # (Manual) Eosinophils # (Manual) PT INR Fibrinogen dRVVT Confirm Interp Factor V Activity POC ABG pH POC ABG pCO2 POC ABG pO2 Sodium Potassium Chloride Carbon Dioxide BUN Creatinine Glucose POC Glucose 133 H 141 H Lactic Acid Calcium Phosphorus Magnesium Direct Bilirubin AST ALT Alkaline Phosphatase Lactate Dehydrogenase Troponin T C-Reactive Protein Total Protein Albumin Prealbumin Triglycerides Cholesterol LDL Cholesterol Direct HDL Cholesterol Urine pH Urine WBC (Auto) Urine Creatinine Urine Total Protein Fluid Total Protein Vancomycin Trough Rheumatoid Factor Complement C4 Miscellaneous Test Crossmatch 10/10/16 10/10/16 10/10/16 05:00 05:00 11:19 WBC 18.5 H RBC 2.19 L Hgb 6.4 L Hct 19.6 L* MCV MCH MCHC RDW 19.3 H Plt Count 93 L Lymph % (Auto) [place] % (Auto) Lymph # [place] # Baso # Seg Neutrophils % Seg Neuts % (Manual) Lymphocytes % (Manual) 10.0 L Monocytes % (Manual) Eosinophils % (Manual) Basophils % (Manual) Nucleated RBC % 4.0 H Seg Neutrophils # Seg Neutrophils # Man 11.3 H Lymphocytes # (Manual) Monocytes # (Manual) Eosinophils # (Manual) PT INR Fibrinogen dRVVT Confirm Interp Factor V Activity POC ABG pH POC ABG pCO2 POC ABG pO2 Sodium Potassium 5.7 H D Chloride Carbon Dioxide 16 L BUN 94 H Creatinine 3.1 H Glucose 131 H POC Glucose 153 H Lactic Acid Calcium 8.2 L Phosphorus 5.10 H Magnesium 2.40 H Direct Bilirubin 0.3 H AST ALT < 5 L Alkaline Phosphatase 319 H Lactate Dehydrogenase Troponin T C-Reactive Protein Total Protein 5.1 L Albumin 1.0 L Prealbumin Triglycerides Cholesterol LDL Cholesterol Direct HDL Cholesterol Urine pH Urine WBC (Auto) Urine Creatinine Urine Total Protein Fluid Total Protein Vancomycin Trough Rheumatoid Factor Complement C4 Miscellaneous Test Crossmatch 10/10/16 10/10/16 10/11/16 17:50 23:30 04:15 WBC RBC Hgb Hct MCV MCH MCHC RDW Plt Count Lymph % (Auto) [place] % (Auto) Lymph # [place] # Baso # Seg Neutrophils % Seg Neuts % (Manual) Lymphocytes % (Manual) Monocytes % (Manual) Eosinophils % (Manual) Basophils % (Manual) Nucleated RBC % Seg Neutrophils # Seg Neutrophils # Man Lymphocytes # (Manual) Monocytes # (Manual) Eosinophils # (Manual) PT INR Fibrinogen dRVVT Confirm Interp Factor V Activity POC ABG pH POC ABG pCO2 POC ABG pO2 Sodium Potassium Chloride 96.4 L Carbon Dioxide 21 L BUN 57 H Creatinine 2.1 H Glucose 151 H POC Glucose 146 H 141 H Lactic Acid Calcium 8.3 L Phosphorus Magnesium Direct Bilirubin AST ALT Alkaline Phosphatase Lactate Dehydrogenase Troponin T C-Reactive Protein Total Protein Albumin Prealbumin Triglycerides Cholesterol LDL Cholesterol Direct HDL Cholesterol Urine pH Urine WBC (Auto) Urine Creatinine Urine Total Protein Fluid Total Protein Vancomycin Trough Rheumatoid Factor Complement C4 Miscellaneous Test Crossmatch 10/11/16 10/11/16 10/11/16 04:15 04:15 05:30 WBC 28.3 H RBC 3.12 L Hgb 9.3 L Hct 28.7 L D MCV MCH MCHC RDW 17.7 H Plt Count 128 L Lymph % (Auto) [place] % (Auto) Lymph # [place] # Baso # Seg Neutrophils % Seg Neuts % (Manual) Lymphocytes % (Manual) Monocytes % (Manual) Eosinophils % (Manual) Basophils % (Manual) Nucleated RBC % Seg Neutrophils # Seg Neutrophils # Man Lymphocytes # (Manual) Monocytes # (Manual) Eosinophils # (Manual) PT INR Fibrinogen dRVVT Confirm Interp Factor V Activity POC ABG pH POC ABG pCO2 POC ABG pO2 Sodium Potassium Chloride Carbon Dioxide BUN Creatinine Glucose POC Glucose 167 H Lactic Acid Calcium Phosphorus Magnesium Direct Bilirubin AST ALT Alkaline Phosphatase Lactate Dehydrogenase Troponin T C-Reactive Protein 15.80 H Total Protein Albumin Prealbumin Triglycerides Cholesterol LDL Cholesterol Direct HDL Cholesterol Urine pH Urine WBC (Auto) Urine Creatinine Urine Total Protein Fluid Total Protein Vancomycin Trough Rheumatoid Factor Complement C4 Miscellaneous Test Crossmatch 10/11/16 10/11/16 10/11/16 11:40 15:49 23:57 WBC RBC Hgb Hct MCV MCH MCHC RDW Plt Count Lymph % (Auto) [place] % (Auto) Lymph # [place] # Baso # Seg Neutrophils % Seg Neuts % (Manual) Lymphocytes % (Manual) Monocytes % (Manual) Eosinophils % (Manual) Basophils % (Manual) Nucleated RBC % Seg Neutrophils # Seg Neutrophils # Man Lymphocytes # (Manual) Monocytes # (Manual) Eosinophils # (Manual) PT INR Fibrinogen dRVVT Confirm Interp Factor V Activity POC ABG pH POC ABG pCO2 POC ABG pO2 Sodium Potassium Chloride Carbon Dioxide BUN Creatinine Glucose POC Glucose 139 H 168 H 161 H Lactic Acid Calcium Phosphorus Magnesium Direct Bilirubin AST ALT Alkaline Phosphatase Lactate Dehydrogenase Troponin T C-Reactive Protein Total Protein Albumin Prealbumin Triglycerides Cholesterol LDL Cholesterol Direct HDL Cholesterol Urine pH Urine WBC (Auto) Urine Creatinine Urine Total Protein Fluid Total Protein Vancomycin Trough Rheumatoid Factor Complement C4 Miscellaneous Test Crossmatch 10/12/16 10/12/16 10/12/16 04:40 04:40 05:44 WBC 22.5 H RBC 2.88 L Hgb 8.8 L Hct 26.8 L MCV MCH MCHC RDW 17.8 H Plt Count Lymph % (Auto) [place] % (Auto) Lymph # [place] # Baso # Seg Neutrophils % Seg Neuts % (Manual) Lymphocytes % (Manual) Monocytes % (Manual) Eosinophils % (Manual) Basophils % (Manual) Nucleated RBC % Seg Neutrophils # Seg Neutrophils # Man Lymphocytes # (Manual) Monocytes # (Manual) Eosinophils # (Manual) PT INR Fibrinogen dRVVT Confirm Interp Factor V Activity POC ABG pH POC ABG pCO2 POC ABG pO2 Sodium 134 L Potassium Chloride 93.0 L Carbon Dioxide BUN 74 H Creatinine 2.5 H Glucose 137 H POC Glucose 158 H Lactic Acid Calcium 8.2 L Phosphorus Magnesium Direct Bilirubin AST ALT Alkaline Phosphatase Lactate Dehydrogenase Troponin T C-Reactive Protein Total Protein Albumin Prealbumin Triglycerides Cholesterol LDL Cholesterol Direct HDL Cholesterol Urine pH Urine WBC (Auto) Urine Creatinine Urine Total Protein Fluid Total Protein Vancomycin Trough Rheumatoid Factor Complement C4 Miscellaneous Test Crossmatch 10/12/16 10/12/16 10/12/16 12:27 18:18 23:46 WBC RBC Hgb Hct MCV MCH MCHC RDW Plt Count Lymph % (Auto) [place] % (Auto) Lymph # [place] # Baso # Seg Neutrophils % Seg Neuts % (Manual) Lymphocytes % (Manual) Monocytes % (Manual) Eosinophils % (Manual) Basophils % (Manual) Nucleated RBC % Seg Neutrophils # Seg Neutrophils # Man Lymphocytes # (Manual) Monocytes # (Manual) Eosinophils # (Manual) PT INR Fibrinogen dRVVT Confirm Interp Factor V Activity POC ABG pH POC ABG pCO2 POC ABG pO2 Sodium Potassium Chloride Carbon Dioxide BUN Creatinine Glucose POC Glucose 153 H 140 H 150 H Lactic Acid Calcium Phosphorus Magnesium Direct Bilirubin AST ALT Alkaline Phosphatase Lactate Dehydrogenase Troponin T C-Reactive Protein Total Protein Albumin Prealbumin Triglycerides Cholesterol LDL Cholesterol Direct HDL Cholesterol Urine pH Urine WBC (Auto) Urine Creatinine Urine Total Protein Fluid Total Protein Vancomycin Trough Rheumatoid Factor Complement C4 Miscellaneous Test Crossmatch 10/13/16 10/13/16 10/13/16 06:22 09:20 12:29 WBC RBC Hgb Hct MCV MCH MCHC RDW Plt Count Lymph % (Auto) [place] % (Auto) Lymph # [place] # Baso # Seg Neutrophils % Seg Neuts % (Manual) Lymphocytes % (Manual) Monocytes % (Manual) Eosinophils % (Manual) Basophils % (Manual) Nucleated RBC % Seg Neutrophils # Seg Neutrophils # Man Lymphocytes # (Manual) Monocytes # (Manual) Eosinophils # (Manual) PT INR Fibrinogen dRVVT Confirm Interp Factor V Activity POC ABG pH POC ABG pCO2 POC ABG pO2 Sodium Potassium Chloride Carbon Dioxide BUN Creatinine Glucose POC Glucose 165 H 193 H Lactic Acid Calcium Phosphorus Magnesium Direct Bilirubin AST ALT Alkaline Phosphatase Lactate Dehydrogenase Troponin T C-Reactive Protein Total Protein Albumin Prealbumin Triglycerides Cholesterol LDL Cholesterol Direct HDL Cholesterol Urine pH Urine WBC (Auto) Urine Creatinine Urine Total Protein Fluid Total Protein Vancomycin Trough Rheumatoid Factor Complement C4 Miscellaneous Test Flexitest 1 H Crossmatch 10/13/16 10/13/16 10/13/16 18:09 Unknown Unknown WBC 23.4 H RBC 2.83 L Hgb 8.7 L Hct 26.1 L MCV MCH MCHC RDW 18.1 H Plt Count Lymph % (Auto) [place] % (Auto) Lymph # [place] # Baso # Seg Neutrophils % Seg Neuts % (Manual) Lymphocytes % (Manual) Monocytes % (Manual) Eosinophils % (Manual) Basophils % (Manual) Nucleated RBC % Seg Neutrophils # Seg Neutrophils # Man Lymphocytes # (Manual) Monocytes # (Manual) Eosinophils # (Manual) PT INR Fibrinogen dRVVT Confirm Interp Factor V Activity POC ABG pH POC ABG pCO2 POC ABG pO2 Sodium Potassium Chloride 95.8 L Carbon Dioxide BUN 82 H Creatinine 2.6 H Glucose 152 H POC Glucose 166 H Lactic Acid Calcium Phosphorus Magnesium Direct Bilirubin AST ALT Alkaline Phosphatase Lactate Dehydrogenase Troponin T C-Reactive Protein Total Protein Albumin Prealbumin Triglycerides Cholesterol LDL Cholesterol Direct HDL Cholesterol Urine pH Urine WBC (Auto) Urine Creatinine Urine Total Protein Fluid Total Protein Vancomycin Trough Rheumatoid Factor Complement C4 Miscellaneous Test Crossmatch 10/14/16 10/14/16 10/14/16 05:38 06:35 08:10 WBC 20.7 H RBC 2.81 L Hgb 8.4 L Hct 27.2 L MCV MCH MCHC RDW 19.4 H Plt Count Lymph % (Auto) [place] % (Auto) Lymph # [place] # Baso # Seg Neutrophils % Seg Neuts % (Manual) Lymphocytes % (Manual) Monocytes % (Manual) Eosinophils % (Manual) Basophils % (Manual) Nucleated RBC % Seg Neutrophils # Seg Neutrophils # Man Lymphocytes # (Manual) Monocytes # (Manual) Eosinophils # (Manual) PT INR Fibrinogen dRVVT Confirm Interp Factor V Activity POC ABG pH POC ABG pCO2 POC ABG pO2 Sodium Potassium Chloride Carbon Dioxide BUN 58 H Creatinine 1.9 H Glucose 169 H POC Glucose 195 H Lactic Acid Calcium Phosphorus Magnesium Direct Bilirubin AST ALT Alkaline Phosphatase Lactate Dehydrogenase Troponin T C-Reactive Protein Total Protein Albumin Prealbumin Triglycerides Cholesterol LDL Cholesterol Direct HDL Cholesterol Urine pH Urine WBC (Auto) Urine Creatinine Urine Total Protein Fluid Total Protein Vancomycin Trough Rheumatoid Factor Complement C4 Miscellaneous Test Crossmatch 10/14/16 10/14/16 10/14/16 11:44 17:13 23:28 WBC RBC Hgb Hct MCV MCH MCHC RDW Plt Count Lymph % (Auto) [place] % (Auto) Lymph # [place] # Baso # Seg Neutrophils % Seg Neuts % (Manual) Lymphocytes % (Manual) Monocytes % (Manual) Eosinophils % (Manual) Basophils % (Manual) Nucleated RBC % Seg Neutrophils # Seg Neutrophils # Man Lymphocytes # (Manual) Monocytes # (Manual) Eosinophils # (Manual) PT INR Fibrinogen dRVVT Confirm Interp Factor V Activity POC ABG pH POC ABG pCO2 POC ABG pO2 Sodium Potassium Chloride Carbon Dioxide BUN Creatinine Glucose POC Glucose 174 H 121 H 151 H Lactic Acid Calcium Phosphorus Magnesium Direct Bilirubin AST ALT Alkaline Phosphatase Lactate Dehydrogenase Troponin T C-Reactive Protein Total Protein Albumin Prealbumin Triglycerides Cholesterol LDL Cholesterol Direct HDL Cholesterol Urine pH Urine WBC (Auto) Urine Creatinine Urine Total Protein Fluid Total Protein Vancomycin Trough Rheumatoid Factor Complement C4 Miscellaneous Test Crossmatch 10/15/16 10/15/16 10/15/16 05:06 12:26 17:48 WBC RBC Hgb Hct MCV MCH MCHC RDW Plt Count Lymph % (Auto) [place] % (Auto) Lymph # [place] # Baso # Seg Neutrophils % Seg Neuts % (Manual) Lymphocytes % (Manual) Monocytes % (Manual) Eosinophils % (Manual) Basophils % (Manual) Nucleated RBC % Seg Neutrophils # Seg Neutrophils # Man Lymphocytes # (Manual) Monocytes # (Manual) Eosinophils # (Manual) PT INR Fibrinogen dRVVT Confirm Interp Factor V Activity POC ABG pH POC ABG pCO2 POC ABG pO2 Sodium Potassium Chloride Carbon Dioxide BUN Creatinine Glucose POC Glucose 151 H 149 H 153 H Lactic Acid Calcium Phosphorus Magnesium Direct Bilirubin AST ALT Alkaline Phosphatase Lactate Dehydrogenase Troponin T C-Reactive Protein Total Protein Albumin Prealbumin Triglycerides Cholesterol LDL Cholesterol Direct HDL Cholesterol Urine pH Urine WBC (Auto) Urine Creatinine Urine Total Protein Fluid Total Protein Vancomycin Trough Rheumatoid Factor Complement C4 Miscellaneous Test Crossmatch 10/15/16 10/15/16 10/16/16 Unknown Unknown 00:02 WBC 23.4 H RBC 2.78 L Hgb 8.5 L Hct 25.7 L MCV MCH MCHC RDW 18.7 H Plt Count Lymph % (Auto) [place] % (Auto) Lymph # [place] # Baso # Seg Neutrophils % Seg Neuts % (Manual) Lymphocytes % (Manual) Monocytes % (Manual) Eosinophils % (Manual) Basophils % (Manual) Nucleated RBC % Seg Neutrophils # Seg Neutrophils # Man Lymphocytes # (Manual) Monocytes # (Manual) Eosinophils # (Manual) PT INR Fibrinogen dRVVT Confirm Interp Factor V Activity POC ABG pH POC ABG pCO2 POC ABG pO2 Sodium Potassium Chloride Carbon Dioxide BUN 73 H Creatinine 2.3 H Glucose 120 H POC Glucose 137 H Lactic Acid Calcium Phosphorus Magnesium Direct Bilirubin AST ALT Alkaline Phosphatase Lactate Dehydrogenase Troponin T C-Reactive Protein Total Protein Albumin Prealbumin Triglycerides Cholesterol LDL Cholesterol Direct HDL Cholesterol Urine pH Urine WBC (Auto) Urine Creatinine Urine Total Protein Fluid Total Protein Vancomycin Trough Rheumatoid Factor Complement C4 Miscellaneous Test Crossmatch 10/16/16 10/16/16 10/16/16 05:44 06:25 06:25 WBC 22.5 H RBC 2.76 L Hgb 8.3 L Hct 25.2 L MCV MCH MCHC RDW 18.3 H Plt Count Lymph % (Auto) [place] % (Auto) Lymph # [place] # Baso # Seg Neutrophils % Seg Neuts % (Manual) Lymphocytes % (Manual) Monocytes % (Manual) Eosinophils % (Manual) Basophils % (Manual) Nucleated RBC % Seg Neutrophils # Seg Neutrophils # Man Lymphocytes # (Manual) Monocytes # (Manual) Eosinophils # (Manual) PT INR Fibrinogen dRVVT Confirm Interp Factor V Activity POC ABG pH POC ABG pCO2 POC ABG pO2 Sodium Potassium Chloride Carbon Dioxide BUN 92 H Creatinine 3.0 H Glucose 138 H POC Glucose 110 H Lactic Acid Calcium Phosphorus Magnesium Direct Bilirubin AST ALT Alkaline Phosphatase Lactate Dehydrogenase Troponin T C-Reactive Protein Total Protein Albumin Prealbumin Triglycerides Cholesterol LDL Cholesterol Direct HDL Cholesterol Urine pH Urine WBC (Auto) Urine Creatinine Urine Total Protein Fluid Total Protein Vancomycin Trough Rheumatoid Factor Complement C4 Miscellaneous Test Crossmatch 10/16/16 10/16/16 10/16/16 11:27 11:48 17:36 WBC RBC Hgb Hct MCV MCH MCHC RDW Plt Count Lymph % (Auto) [place] % (Auto) Lymph # [place] # Baso # Seg Neutrophils % Seg Neuts % (Manual) Lymphocytes % (Manual) Monocytes % (Manual) Eosinophils % (Manual) Basophils % (Manual) Nucleated RBC % Seg Neutrophils # Seg Neutrophils # Man Lymphocytes # (Manual) Monocytes # (Manual) Eosinophils # (Manual) PT INR Fibrinogen dRVVT Confirm Interp Factor V Activity POC ABG pH 7.582 H POC ABG pCO2 27.4 L POC ABG pO2 110 H Sodium Potassium Chloride Carbon Dioxide BUN Creatinine Glucose POC Glucose 121 H 133 H Lactic Acid Calcium Phosphorus Magnesium Direct Bilirubin AST ALT Alkaline Phosphatase Lactate Dehydrogenase Troponin T C-Reactive Protein Total Protein Albumin Prealbumin Triglycerides Cholesterol LDL Cholesterol Direct HDL Cholesterol Urine pH Urine WBC (Auto) Urine Creatinine Urine Total Protein Fluid Total Protein Vancomycin Trough Rheumatoid Factor Complement C4 Miscellaneous Test Crossmatch 10/16/16 10/17/16 10/17/16 20:48 04:24 04:24 WBC 21.4 H RBC 2.72 L Hgb 8.0 L Hct 25.2 L MCV MCH MCHC RDW 18.0 H Plt Count Lymph % (Auto) [place] % (Auto) Lymph # [place] # Baso # Seg Neutrophils % Seg Neuts % (Manual) Lymphocytes % (Manual) Monocytes % (Manual) Eosinophils % (Manual) Basophils % (Manual) Nucleated RBC % Seg Neutrophils # Seg Neutrophils # Man Lymphocytes # (Manual) Monocytes # (Manual) Eosinophils # (Manual) PT INR Fibrinogen dRVVT Confirm Interp Factor V Activity POC ABG pH 7.561 H POC ABG pCO2 24.4 L POC ABG pO2 77 L Sodium 148 H Potassium Chloride Carbon Dioxide BUN 104 H Creatinine 3.0 H Glucose 149 H POC Glucose Lactic Acid Calcium Phosphorus Magnesium Direct Bilirubin AST ALT Alkaline Phosphatase 138 H Lactate Dehydrogenase Troponin T C-Reactive Protein Total Protein 6.2 L Albumin 1.5 L Prealbumin Triglycerides Cholesterol LDL Cholesterol Direct HDL Cholesterol Urine pH Urine WBC (Auto) Urine Creatinine Urine Total Protein Fluid Total Protein Vancomycin Trough Rheumatoid Factor Complement C4 Miscellaneous Test Crossmatch 10/17/16 10/17/16 10/17/16 06:02 12:17 17:14 WBC RBC Hgb Hct MCV MCH MCHC RDW Plt Count Lymph % (Auto) [place] % (Auto) Lymph # [place] # Baso # Seg Neutrophils % Seg Neuts % (Manual) Lymphocytes % (Manual) Monocytes % (Manual) Eosinophils % (Manual) Basophils % (Manual) Nucleated RBC % Seg Neutrophils # Seg Neutrophils # Man Lymphocytes # (Manual) Monocytes # (Manual) Eosinophils # (Manual) PT INR Fibrinogen dRVVT Confirm Interp Factor V Activity POC ABG pH POC ABG pCO2 POC ABG pO2 Sodium Potassium Chloride Carbon Dioxide BUN Creatinine Glucose POC Glucose 170 H 167 H 126 H Lactic Acid Calcium Phosphorus Magnesium Direct Bilirubin AST ALT Alkaline Phosphatase Lactate Dehydrogenase Troponin T C-Reactive Protein Total Protein Albumin Prealbumin Triglycerides Cholesterol LDL Cholesterol Direct HDL Cholesterol Urine pH Urine WBC (Auto) Urine Creatinine Urine Total Protein Fluid Total Protein Vancomycin Trough Rheumatoid Factor Complement C4 Miscellaneous Test Crossmatch 10/17/16 10/18/16 10/18/16 23:17 04:00 04:00 WBC 20.7 H RBC 2.47 L Hgb 7.4 L Hct 22.9 L MCV MCH MCHC RDW 17.5 H Plt Count Lymph % (Auto) [place] % (Auto) Lymph # [place] # [place] # Seg Neutrophils % Seg Neuts % (Manual) Lymphocytes % (Manual) Monocytes % (Manual) Eosinophils % (Manual) Basophils % (Manual) Nucleated RBC % Seg Neutrophils # Seg Neutrophils # Man Lymphocytes # (Manual) Monocytes # (Manual) Eosinophils # (Manual) PT INR Fibrinogen dRVVT Confirm Interp Factor V Activity POC ABG pH POC ABG pCO2 POC ABG pO2 Sodium 149 H Potassium Chloride 107.9 H Carbon Dioxide 20 L BUN 117 H Creatinine 3.2 H Glucose 119 H POC Glucose 121 H Lactic Acid Calcium Phosphorus Magnesium Direct Bilirubin AST ALT Alkaline Phosphatase Lactate Dehydrogenase Troponin T C-Reactive Protein Total Protein Albumin Prealbumin Triglycerides Cholesterol LDL Cholesterol Direct HDL Cholesterol Urine pH Urine WBC (Auto) Urine Creatinine Urine Total Protein Fluid Total Protein Vancomycin Trough Rheumatoid Factor Complement C4 Miscellaneous Test Crossmatch 10/18/16 10/18/16 10/18/16 05:23 10:46 17:30 WBC RBC Hgb Hct MCV MCH MCHC RDW Plt Count Lymph % (Auto) [place] % (Auto) Lymph # [place] # Baso # Seg Neutrophils % Seg Neuts % (Manual) Lymphocytes % (Manual) Monocytes % (Manual) Eosinophils % (Manual) Basophils % (Manual) Nucleated RBC % Seg Neutrophils # Seg Neutrophils # Man Lymphocytes # (Manual) Monocytes # (Manual) Eosinophils # (Manual) PT INR Fibrinogen dRVVT Confirm Interp Factor V Activity POC ABG pH POC ABG pCO2 POC ABG pO2 Sodium Potassium Chloride Carbon Dioxide BUN Creatinine Glucose POC Glucose 119 H 155 H 124 H Lactic Acid Calcium Phosphorus Magnesium Direct Bilirubin AST ALT Alkaline Phosphatase Lactate Dehydrogenase Troponin T C-Reactive Protein Total Protein Albumin Prealbumin Triglycerides Cholesterol LDL Cholesterol Direct HDL Cholesterol Urine pH Urine WBC (Auto) Urine Creatinine Urine Total Protein Fluid Total Protein Vancomycin Trough Rheumatoid Factor Complement C4 Miscellaneous Test Crossmatch 10/19/16 10/19/16 10/19/16 04:00 04:00 05:25 WBC 17.4 H RBC 2.54 L Hgb 7.7 L Hct 23.6 L MCV MCH MCHC RDW 17.3 H Plt Count Lymph % (Auto) [place] % (Auto) Lymph # [place] # Baso # Seg Neutrophils % Seg Neuts % (Manual) Lymphocytes % (Manual) Monocytes % (Manual) Eosinophils % (Manual) Basophils % (Manual) Nucleated RBC % Seg Neutrophils # Seg Neutrophils # Man Lymphocytes # (Manual) Monocytes # (Manual) Eosinophils # (Manual) PT INR Fibrinogen dRVVT Confirm Interp Factor V Activity POC ABG pH POC ABG pCO2 POC ABG pO2 Sodium Potassium Chloride Carbon Dioxide BUN 72 H Creatinine 2.1 H Glucose 116 H POC Glucose 119 H Lactic Acid Calcium Phosphorus Magnesium Direct Bilirubin AST ALT Alkaline Phosphatase Lactate Dehydrogenase Troponin T C-Reactive Protein Total Protein Albumin Prealbumin Triglycerides Cholesterol LDL Cholesterol Direct HDL Cholesterol Urine pH Urine WBC (Auto) Urine Creatinine Urine Total Protein Fluid Total Protein Vancomycin Trough Rheumatoid Factor Complement C4 Miscellaneous Test Crossmatch 10/19/16 10/19/16 10/20/16 11:46 23:59 06:00 WBC RBC Hgb Hct MCV MCH MCHC RDW Plt Count Lymph % (Auto) [place] % (Auto) Lymph # [place] # Baso # Seg Neutrophils % Seg Neuts % (Manual) Lymphocytes % (Manual) Monocytes % (Manual) Eosinophils % (Manual) Basophils % (Manual) Nucleated RBC % Seg Neutrophils # Seg Neutrophils # Man Lymphocytes # (Manual) Monocytes # (Manual) Eosinophils # (Manual) PT INR Fibrinogen dRVVT Confirm Interp Factor V Activity POC ABG pH POC ABG pCO2 POC ABG pO2 Sodium Potassium Chloride Carbon Dioxide 17 L BUN 94 H Creatinine 2.7 H Glucose POC Glucose 116 H 117 H Lactic Acid Calcium Phosphorus Magnesium Direct Bilirubin AST ALT Alkaline Phosphatase Lactate Dehydrogenase Troponin T C-Reactive Protein Total Protein Albumin Prealbumin Triglycerides Cholesterol LDL Cholesterol Direct HDL Cholesterol Urine pH Urine WBC (Auto) Urine Creatinine Urine Total Protein Fluid Total Protein Vancomycin Trough Rheumatoid Factor Complement C4 Miscellaneous Test Crossmatch 10/20/16 10/20/16 10/20/16 06:00 11:49 16:00 WBC 19.7 H RBC 2.51 L Hgb 7.7 L Hct 23.5 L MCV MCH MCHC RDW 17.5 H Plt Count Lymph % (Auto) [place] % (Auto) Lymph # [place] # Baso # Seg Neutrophils % Seg Neuts % (Manual) Lymphocytes % (Manual) Monocytes % (Manual) Eosinophils % (Manual) Basophils % (Manual) Nucleated RBC % Seg Neutrophils # Seg Neutrophils # Man Lymphocytes # (Manual) Monocytes # (Manual) Eosinophils # (Manual) PT INR Fibrinogen dRVVT Confirm Interp Factor V Activity POC ABG pH POC ABG pCO2 POC ABG pO2 Sodium Potassium Chloride Carbon Dioxide BUN Creatinine Glucose POC Glucose 117 H Lactic Acid Calcium Phosphorus Magnesium Direct Bilirubin AST ALT Alkaline Phosphatase Lactate Dehydrogenase Troponin T C-Reactive Protein Total Protein Albumin Prealbumin Triglycerides Cholesterol LDL Cholesterol Direct HDL Cholesterol Urine pH Urine WBC (Auto) Urine Creatinine Urine Total Protein Fluid Total Protein Vancomycin Trough Rheumatoid Factor Complement C4 Miscellaneous Test Flexitest 1 H Crossmatch 10/20/16 10/20/16 10/21/16 18:36 23:39 04:00 WBC RBC Hgb Hct MCV MCH MCHC RDW Plt Count Lymph % (Auto) [place] % (Auto) Lymph # [place] # Baso # Seg Neutrophils % Seg Neuts % (Manual) Lymphocytes % (Manual) Monocytes % (Manual) Eosinophils % (Manual) Basophils % (Manual) Nucleated RBC % Seg Neutrophils # Seg Neutrophils # Man Lymphocytes # (Manual) Monocytes # (Manual) Eosinophils # (Manual) PT INR Fibrinogen dRVVT Confirm Interp Factor V Activity POC ABG pH POC ABG pCO2 POC ABG pO2 Sodium Potassium 5.4 H D Chloride Carbon Dioxide 15 L BUN 110 H Creatinine 3.0 H Glucose POC Glucose 127 H 114 H Lactic Acid Calcium Phosphorus Magnesium Direct Bilirubin AST ALT Alkaline Phosphatase Lactate Dehydrogenase Troponin T C-Reactive Protein Total Protein Albumin Prealbumin Triglycerides Cholesterol LDL Cholesterol Direct HDL Cholesterol Urine pH Urine WBC (Auto) Urine Creatinine Urine Total Protein Fluid Total Protein Vancomycin Trough Rheumatoid Factor Complement C4 Miscellaneous Test Crossmatch 10/21/16 10/21/16 10/22/16 05:54 23:46 05:18 WBC RBC Hgb Hct MCV MCH MCHC RDW Plt Count Lymph % (Auto) [place] % (Auto) Lymph # [place] # Baso # Seg Neutrophils % Seg Neuts % (Manual) Lymphocytes % (Manual) Monocytes % (Manual) Eosinophils % (Manual) Basophils % (Manual) Nucleated RBC % Seg Neutrophils # Seg Neutrophils # Man Lymphocytes # (Manual) Monocytes # (Manual) Eosinophils # (Manual) PT INR Fibrinogen dRVVT Confirm Interp Factor V Activity POC ABG pH POC ABG pCO2 POC ABG pO2 Sodium Potassium Chloride Carbon Dioxide BUN Creatinine Glucose POC Glucose 119 H 108 H 109 H Lactic Acid Calcium Phosphorus Magnesium Direct Bilirubin AST ALT Alkaline Phosphatase Lactate Dehydrogenase Troponin T C-Reactive Protein Total Protein Albumin Prealbumin Triglycerides Cholesterol LDL Cholesterol Direct HDL Cholesterol Urine pH Urine WBC (Auto) Urine Creatinine Urine Total Protein Fluid Total Protein Vancomycin Trough Rheumatoid Factor Complement C4 Miscellaneous Test Crossmatch 10/22/16 10/22/16 10/22/16 06:40 06:40 06:40 WBC 14.0 H RBC 2.03 L Hgb 7.0 L Hct 20.5 L MCV 98 H MCH 34 H MCHC 35 H RDW 17.8 H Plt Count Lymph % (Auto) [place] % (Auto) 9.9 H Lymph # [place] # 1.4 H Baso # 0.2 H Seg Neutrophils % 72.0 H Seg Neuts % (Manual) Lymphocytes % (Manual) Monocytes % (Manual) Eosinophils % (Manual) Basophils % (Manual) Nucleated RBC % Seg Neutrophils # 10.0 H Seg Neutrophils # Man Lymphocytes # (Manual) Monocytes # (Manual) Eosinophils # (Manual) PT INR Fibrinogen dRVVT Confirm Interp Factor V Activity POC ABG pH POC ABG pCO2 POC ABG pO2 Sodium 130 L D Potassium Chloride 92.4 L Carbon Dioxide 20 L BUN 50 H Creatinine 1.6 H Glucose 589 H* POC Glucose Lactic Acid Calcium 7.8 L D Phosphorus Magnesium 1.60 L Direct Bilirubin AST ALT Alkaline Phosphatase Lactate Dehydrogenase Troponin T C-Reactive Protein Total Protein Albumin Prealbumin Triglycerides Cholesterol LDL Cholesterol Direct HDL Cholesterol Urine pH Urine WBC (Auto) Urine Creatinine Urine Total Protein Fluid Total Protein Vancomycin Trough Rheumatoid Factor Complement C4 Miscellaneous Test Crossmatch 10/22/16 10/22/16 10/22/16 11:39 16:44 23:36 WBC RBC Hgb Hct MCV MCH MCHC RDW Plt Count Lymph % (Auto) [place] % (Auto) Lymph # [place] # Baso # Seg Neutrophils % Seg Neuts % (Manual) Lymphocytes % (Manual) Monocytes % (Manual) Eosinophils % (Manual) Basophils % (Manual) Nucleated RBC % Seg Neutrophils # Seg Neutrophils # Man Lymphocytes # (Manual) Monocytes # (Manual) Eosinophils # (Manual) PT INR Fibrinogen dRVVT Confirm Interp Factor V Activity POC ABG pH POC ABG pCO2 POC ABG pO2 Sodium Potassium Chloride Carbon Dioxide BUN Creatinine Glucose POC Glucose 142 H 163 H 123 H Lactic Acid Calcium Phosphorus Magnesium Direct Bilirubin AST ALT Alkaline Phosphatase Lactate Dehydrogenase Troponin T C-Reactive Protein Total Protein Albumin Prealbumin Triglycerides Cholesterol LDL Cholesterol Direct HDL Cholesterol Urine pH Urine WBC (Auto) Urine Creatinine Urine Total Protein Fluid Total Protein Vancomycin Trough Rheumatoid Factor Complement C4 Miscellaneous Test Crossmatch 10/23/16 10/23/16 10/23/16 04:58 06:00 12:12 WBC RBC Hgb Hct MCV MCH MCHC RDW Plt Count Lymph % (Auto) [place] % (Auto) Lymph # [place] # Baso # Seg Neutrophils % Seg Neuts % (Manual) Lymphocytes % (Manual) Monocytes % (Manual) Eosinophils % (Manual) Basophils % (Manual) Nucleated RBC % Seg Neutrophils # Seg Neutrophils # Man Lymphocytes # (Manual) Monocytes # (Manual) Eosinophils # (Manual) PT INR Fibrinogen dRVVT Confirm Interp Factor V Activity POC ABG pH POC ABG pCO2 POC ABG pO2 Sodium 133 L Potassium 3.5 L Chloride 96.1 L Carbon Dioxide 18 L BUN 76 H Creatinine 2.1 H Glucose POC Glucose 133 H 138 H Lactic Acid Calcium 8.3 L Phosphorus Magnesium Direct Bilirubin AST ALT Alkaline Phosphatase Lactate Dehydrogenase Troponin T C-Reactive Protein Total Protein Albumin Prealbumin Triglycerides Cholesterol LDL Cholesterol Direct HDL Cholesterol Urine pH Urine WBC (Auto) Urine Creatinine Urine Total Protein Fluid Total Protein Vancomycin Trough Rheumatoid Factor Complement C4 Miscellaneous Test Crossmatch 10/23/16 10/23/1617 16:53 23:37 04:00 WBC RBC Hgb Hct MCV MCH MCHC RDW Plt Count Lymph % (Auto) [place] % (Auto) Lymph # [place] # Baso # Seg Neutrophils % Seg Neuts % (Manual) Lymphocytes % (Manual) Monocytes % (Manual) Eosinophils % (Manual) Basophils % (Manual) Nucleated RBC % Seg Neutrophils # Seg Neutrophils # Man Lymphocytes # (Manual) Monocytes # (Manual) Eosinophils # (Manual) PT INR Fibrinogen dRVVT Confirm Interp Factor V Activity POC ABG pH POC ABG pCO2 POC ABG pO2 Sodium 131 L Potassium Chloride 94.5 L Carbon Dioxide 19 L BUN 97 H Creatinine 2.6 H Glucose 110 H POC Glucose 125 H 123 H Lactic Acid Calcium 8.3 L Phosphorus Magnesium Direct Bilirubin AST ALT Alkaline Phosphatase Lactate Dehydrogenase Troponin T C-Reactive Protein Total Protein Albumin Prealbumin Triglycerides Cholesterol LDL Cholesterol Direct HDL Cholesterol Urine pH Urine WBC (Auto) Urine Creatinine Urine Total Protein Fluid Total Protein Vancomycin Trough Rheumatoid Factor Complement C4 Miscellaneous Test Crossmatch 10/24/16 10/24/16 10/24/16 07:49 11:39 17:52 WBC RBC Hgb 6.0 L Hct 19.7 L* MCV MCH MCHC RDW Plt Count Lymph % (Auto) [place] % (Auto) Lymph # [place] # Baso # Seg Neutrophils % Seg Neuts % (Manual) Lymphocytes % (Manual) Monocytes % (Manual) Eosinophils % (Manual) Basophils % (Manual) Nucleated RBC % Seg Neutrophils # Seg Neutrophils # Man Lymphocytes # (Manual) Monocytes # (Manual) Eosinophils # (Manual) PT INR Fibrinogen dRVVT Confirm Interp Factor V Activity POC ABG pH POC ABG pCO2 POC ABG pO2 Sodium Potassium Chloride Carbon Dioxide BUN Creatinine Glucose POC Glucose 106 H 158 H Lactic Acid Calcium Phosphorus Magnesium Direct Bilirubin AST ALT Alkaline Phosphatase Lactate Dehydrogenase Troponin T C-Reactive Protein Total Protein Albumin Prealbumin Triglycerides Cholesterol LDL Cholesterol Direct HDL Cholesterol Urine pH Urine WBC (Auto) Urine Creatinine Urine Total Protein Fluid Total Protein Vancomycin Trough Rheumatoid Factor Complement C4 Miscellaneous Test Crossmatch 10/24/16 10/24/16 10/24/16 20:00 22:27 Unknown WBC RBC Hgb 9.4 L D Hct 27.5 L D MCV MCH MCHC RDW Plt Count Lymph % (Auto) [place] % (Auto) Lymph # [place] # Baso # Seg Neutrophils % Seg Neuts % (Manual) Lymphocytes % (Manual) Monocytes % (Manual) Eosinophils % (Manual) Basophils % (Manual) Nucleated RBC % Seg Neutrophils # Seg Neutrophils # Man Lymphocytes # (Manual) Monocytes # (Manual) Eosinophils # (Manual) PT INR Fibrinogen dRVVT Confirm Interp Factor V Activity POC ABG pH POC ABG pCO2 POC ABG pO2 Sodium Potassium Chloride Carbon Dioxide BUN Creatinine Glucose POC Glucose 125 H Lactic Acid Calcium Phosphorus Magnesium Direct Bilirubin AST ALT Alkaline Phosphatase Lactate Dehydrogenase Troponin T C-Reactive Protein Total Protein Albumin Prealbumin Triglycerides Cholesterol LDL Cholesterol Direct HDL Cholesterol Urine pH Urine WBC (Auto) Urine Creatinine Urine Total Protein Fluid Total Protein Vancomycin Trough Rheumatoid Factor Complement C4 Miscellaneous Test Crossmatch See Detail 10/25/16 10/25/16 10/25/16 04:00 04:00 04:00 WBC 14.2 H RBC 2.98 L Hgb 9.0 L Hct 26.2 L MCV MCH MCHC RDW 16.6 H Plt Count Lymph % (Auto) [place] % (Auto) 10.7 H Lymph # [place] # 1.5 H Baso # Seg Neutrophils % 73.6 H Seg Neuts % (Manual) Lymphocytes % (Manual) Monocytes % (Manual) Eosinophils % (Manual) Basophils % (Manual) Nucleated RBC % Seg Neutrophils # 10.5 H Seg Neutrophils # Man Lymphocytes # (Manual) Monocytes # (Manual) Eosinophils # (Manual) PT INR Fibrinogen dRVVT Confirm Interp Factor V Activity POC ABG pH POC ABG pCO2 POC ABG pO2 Sodium 132 L Potassium Chloride 94.7 L Carbon Dioxide BUN 51 H Creatinine 1.6 H Glucose 130 H POC Glucose Lactic Acid Calcium 8.3 L Phosphorus 1.60 L D Magnesium Direct Bilirubin AST ALT Alkaline Phosphatase Lactate Dehydrogenase Troponin T C-Reactive Protein Total Protein Albumin Prealbumin Triglycerides Cholesterol LDL Cholesterol Direct HDL Cholesterol Urine pH Urine WBC (Auto) Urine Creatinine Urine Total Protein Fluid Total Protein Vancomycin Trough Rheumatoid Factor Complement C4 Miscellaneous Test Crossmatch 10/25/16 10/25/16 10/25/16 04:32 11:48 17:22 WBC RBC Hgb Hct MCV MCH MCHC RDW Plt Count Lymph % (Auto) [place] % (Auto) Lymph # [place] # Baso # Seg Neutrophils % Seg Neuts % (Manual) Lymphocytes % (Manual) Monocytes % (Manual) Eosinophils % (Manual) Basophils % (Manual) Nucleated RBC % Seg Neutrophils # Seg Neutrophils # Man Lymphocytes # (Manual) Monocytes # (Manual) Eosinophils # (Manual) PT INR Fibrinogen dRVVT Confirm Interp Factor V Activity POC ABG pH POC ABG pCO2 POC ABG pO2 Sodium Potassium Chloride Carbon Dioxide BUN Creatinine Glucose POC Glucose 124 H 171 H 120 H Lactic Acid Calcium Phosphorus Magnesium Direct Bilirubin AST ALT Alkaline Phosphatase Lactate Dehydrogenase Troponin T C-Reactive Protein Total Protein Albumin Prealbumin Triglycerides Cholesterol LDL Cholesterol Direct HDL Cholesterol Urine pH Urine WBC (Auto) Urine Creatinine Urine Total Protein Fluid Total Protein Vancomycin Trough Rheumatoid Factor Complement C4 Miscellaneous Test Crossmatch 10/26/16 10/26/16 10/26/16 04:54 07:06 07:06 WBC 16.9 H RBC 3.06 L Hgb 9.1 L Hct 26.9 L MCV MCH MCHC RDW 16.9 H Plt Count Lymph % (Auto) [place] % (Auto) Lymph # [place] # Baso # Seg Neutrophils % Seg Neuts % (Manual) 71.0 H Lymphocytes % (Manual) 5.0 L Monocytes % (Manual) 12.0 H Eosinophils % (Manual) Basophils % (Manual) Nucleated RBC % Seg Neutrophils # Seg Neutrophils # Man 12.0 H Lymphocytes # (Manual) 0.8 L Monocytes # (Manual) 2.0 H Eosinophils # (Manual) PT INR Fibrinogen dRVVT Confirm Interp Factor V Activity POC ABG pH POC ABG pCO2 POC ABG pO2 Sodium 135 L Potassium Chloride 97.1 L Carbon Dioxide BUN 73 H Creatinine 2.2 H Glucose 117 H POC Glucose 123 H Lactic Acid Calcium Phosphorus 1.70 L Magnesium Direct Bilirubin AST ALT Alkaline Phosphatase Lactate Dehydrogenase Troponin T C-Reactive Protein Total Protein Albumin Prealbumin Triglycerides Cholesterol LDL Cholesterol Direct HDL Cholesterol Urine pH Urine WBC (Auto) Urine Creatinine Urine Total Protein Fluid Total Protein Vancomycin Trough Rheumatoid Factor Complement C4 Miscellaneous Test Crossmatch 10/26/16 10/26/16 10/26/16 12:12 17:29 23:42 WBC RBC Hgb Hct MCV MCH MCHC RDW Plt Count Lymph % (Auto) [place] % (Auto) Lymph # [place] # Baso # Seg Neutrophils % Seg Neuts % (Manual) Lymphocytes % (Manual) Monocytes % (Manual) Eosinophils % (Manual) Basophils % (Manual) Nucleated RBC % Seg Neutrophils # Seg Neutrophils # Man Lymphocytes # (Manual) Monocytes # (Manual) Eosinophils # (Manual) PT INR Fibrinogen dRVVT Confirm Interp Factor V Activity POC ABG pH POC ABG pCO2 POC ABG pO2 Sodium Potassium Chloride Carbon Dioxide BUN Creatinine Glucose POC Glucose 126 H 161 H 118 H Lactic Acid Calcium Phosphorus Magnesium Direct Bilirubin AST ALT Alkaline Phosphatase Lactate Dehydrogenase Troponin T C-Reactive Protein Total Protein Albumin Prealbumin Triglycerides Cholesterol LDL Cholesterol Direct HDL Cholesterol Urine pH Urine WBC (Auto) Urine Creatinine Urine Total Protein Fluid Total Protein Vancomycin Trough Rheumatoid Factor Complement C4 Miscellaneous Test Crossmatch 10/27/16 10/27/16 10/27/16 05:03 06:30 06:30 WBC 13.9 H RBC 3.09 L Hgb 9.2 L Hct 27.5 L MCV MCH MCHC RDW 17.0 H Plt Count Lymph % (Auto) [place] % (Auto) Lymph # [place] # Baso # Seg Neutrophils % Seg Neuts % (Manual) 78.0 H Lymphocytes % (Manual) Monocytes % (Manual) Eosinophils % (Manual) Basophils % (Manual) Nucleated RBC % 2.0 H Seg Neutrophils # Seg Neutrophils # Man 10.8 H Lymphocytes # (Manual) Monocytes # (Manual) 1.0 H Eosinophils # (Manual) PT INR Fibrinogen dRVVT Confirm Interp Factor V Activity POC ABG pH POC ABG pCO2 POC ABG pO2 Sodium Potassium Chloride Carbon Dioxide BUN 40 H Creatinine 1.5 H Glucose 135 H POC Glucose 107 H Lactic Acid Calcium 8.3 L Phosphorus 1.30 L D Magnesium Direct Bilirubin AST ALT Alkaline Phosphatase Lactate Dehydrogenase Troponin T C-Reactive Protein Total Protein Albumin Prealbumin Triglycerides Cholesterol LDL Cholesterol Direct HDL Cholesterol Urine pH Urine WBC (Auto) Urine Creatinine Urine Total Protein Fluid Total Protein Vancomycin Trough Rheumatoid Factor Complement C4 Miscellaneous Test Crossmatch 10/27/16 10/27/16 10/27/16 13:27 18:07 23:40 WBC RBC Hgb Hct MCV MCH MCHC RDW Plt Count Lymph % (Auto) [place] % (Auto) Lymph # [place] # Baso # Seg Neutrophils % Seg Neuts % (Manual) Lymphocytes % (Manual) Monocytes % (Manual) Eosinophils % (Manual) Basophils % (Manual) Nucleated RBC % Seg Neutrophils # Seg Neutrophils # Man Lymphocytes # (Manual) Monocytes # (Manual) Eosinophils # (Manual) PT INR Fibrinogen dRVVT Confirm Interp Factor V Activity POC ABG pH POC ABG pCO2 POC ABG pO2 Sodium Potassium Chloride Carbon Dioxide BUN Creatinine Glucose POC Glucose 117 H 121 H 118 H Lactic Acid Calcium Phosphorus Magnesium Direct Bilirubin AST ALT Alkaline Phosphatase Lactate Dehydrogenase Troponin T C-Reactive Protein Total Protein Albumin Prealbumin Triglycerides Cholesterol LDL Cholesterol Direct HDL Cholesterol Urine pH Urine WBC (Auto) Urine Creatinine Urine Total Protein Fluid Total Protein Vancomycin Trough Rheumatoid Factor Complement C4 Miscellaneous Test Crossmatch 10/28/16 10/28/16 10/28/16 05:48 06:45 06:45 WBC 14.7 H RBC 3.05 L Hgb 9.0 L Hct 26.9 L MCV MCH MCHC RDW 16.8 H Plt Count Lymph % (Auto) 8.2 L [place] % (Auto) 8.4 H Lymph # [place] # 1.2 H Baso # Seg Neutrophils % 81.9 H Seg Neuts % (Manual) Lymphocytes % (Manual) Monocytes % (Manual) Eosinophils % (Manual) Basophils % (Manual) Nucleated RBC % Seg Neutrophils # 12.1 H Seg Neutrophils # Man Lymphocytes # (Manual) Monocytes # (Manual) Eosinophils # (Manual) PT INR Fibrinogen dRVVT Confirm Interp Factor V Activity POC ABG pH POC ABG pCO2 POC ABG pO2 Sodium Potassium Chloride Carbon Dioxide BUN 60 H Creatinine 1.9 H Glucose 120 H POC Glucose 114 H Lactic Acid Calcium Phosphorus Magnesium Direct Bilirubin AST ALT Alkaline Phosphatase Lactate Dehydrogenase Troponin T C-Reactive Protein Total Protein Albumin Prealbumin Triglycerides Cholesterol LDL Cholesterol Direct HDL Cholesterol Urine pH Urine WBC (Auto) Urine Creatinine Urine Total Protein Fluid Total Protein Vancomycin Trough Rheumatoid Factor Complement C4 Miscellaneous Test Crossmatch 10/28/16 10/28/16 10/29/16 17:08 23:50 05:10 WBC RBC Hgb Hct MCV MCH MCHC RDW Plt Count Lymph % (Auto) [place] % (Auto) Lymph # [place] # Baso # Seg Neutrophils % Seg Neuts % (Manual) Lymphocytes % (Manual) Monocytes % (Manual) Eosinophils % (Manual) Basophils % (Manual) Nucleated RBC % Seg Neutrophils # Seg Neutrophils # Man Lymphocytes # (Manual) Monocytes # (Manual) Eosinophils # (Manual) PT INR Fibrinogen dRVVT Confirm Interp Factor V Activity POC ABG pH POC ABG pCO2 POC ABG pO2 Sodium Potassium Chloride Carbon Dioxide BUN Creatinine Glucose POC Glucose 109 H 110 H 124 H Lactic Acid Calcium Phosphorus Magnesium Direct Bilirubin AST ALT Alkaline Phosphatase Lactate Dehydrogenase Troponin T C-Reactive Protein Total Protein Albumin Prealbumin Triglycerides Cholesterol LDL Cholesterol Direct HDL Cholesterol Urine pH Urine WBC (Auto) Urine Creatinine Urine Total Protein Fluid Total Protein Vancomycin Trough Rheumatoid Factor Complement C4 Miscellaneous Test Crossmatch 10/29/16 10/29/16 10/29/16 07:45 07:45 12:19 WBC 14.7 H RBC 3.15 L Hgb 9.3 L Hct 28.9 L MCV MCH MCHC RDW 17.0 H Plt Count Lymph % (Auto) 11.9 L [place] % (Auto) 8.6 H Lymph # [place] # 1.3 H Baso # Seg Neutrophils % 78.1 H Seg Neuts % (Manual) Lymphocytes % (Manual) Monocytes % (Manual) Eosinophils % (Manual) Basophils % (Manual) Nucleated RBC % Seg Neutrophils # 11.4 H Seg Neutrophils # Man Lymphocytes # (Manual) Monocytes # (Manual) Eosinophils # (Manual) PT INR Fibrinogen dRVVT Confirm Interp Factor V Activity POC ABG pH POC ABG pCO2 POC ABG pO2 Sodium Potassium 5.1 H Chloride Carbon Dioxide 19 L BUN 78 H Creatinine 2.2 H Glucose 116 H POC Glucose 118 H Lactic Acid Calcium Phosphorus Magnesium Direct Bilirubin AST ALT Alkaline Phosphatase Lactate Dehydrogenase Troponin T C-Reactive Protein Total Protein Albumin Prealbumin Triglycerides Cholesterol LDL Cholesterol Direct HDL Cholesterol Urine pH Urine WBC (Auto) Urine Creatinine Urine Total Protein Fluid Total Protein Vancomycin Trough Rheumatoid Factor Complement C4 Miscellaneous Test Crossmatch 10/29/16 10/30/16 10/30/16 17:49 01:52 03:28 WBC RBC Hgb Hct MCV MCH MCHC RDW Plt Count Lymph % (Auto) [place] % (Auto) Lymph # [place] # Baso # Seg Neutrophils % Seg Neuts % (Manual) Lymphocytes % (Manual) Monocytes % (Manual) Eosinophils % (Manual) Basophils % (Manual) Nucleated RBC % Seg Neutrophils # Seg Neutrophils # Man Lymphocytes # (Manual) Monocytes # (Manual) Eosinophils # (Manual) PT INR Fibrinogen dRVVT Confirm Interp Factor V Activity POC ABG pH POC ABG pCO2 POC ABG pO2 Sodium Potassium 5.4 H Chloride 97.5 L Carbon Dioxide 19 L BUN 90 H Creatinine 2.5 H Glucose POC Glucose 120 H 129 H Lactic Acid Calcium Phosphorus 5.20 H Magnesium Direct Bilirubin AST ALT Alkaline Phosphatase Lactate Dehydrogenase Troponin T C-Reactive Protein Total Protein Albumin Prealbumin Triglycerides Cholesterol LDL Cholesterol Direct HDL Cholesterol Urine pH Urine WBC (Auto) Urine Creatinine Urine Total Protein Fluid Total Protein Vancomycin Trough Rheumatoid Factor Complement C4 Miscellaneous Test Crossmatch 10/30/16 10/30/16 10/30/16 03:28 08:19 08:19 WBC 11.6 H 15.9 H RBC 2.75 L 2.82 L Hgb 7.9 L 8.3 L Hct 24.2 L 25.2 L MCV MCH MCHC RDW 16.7 H 17.2 H Plt Count Lymph % (Auto) [place] % (Auto) 9.8 H Lymph # [place] # 1.1 H Baso # Seg Neutrophils % 74.2 H Seg Neuts % (Manual) Lymphocytes % (Manual) Monocytes % (Manual) Eosinophils % (Manual) Basophils % (Manual) Nucleated RBC % Seg Neutrophils # 8.6 H Seg Neutrophils # Man Lymphocytes # (Manual) Monocytes # (Manual) Eosinophils # (Manual) PT INR Fibrinogen dRVVT Confirm Interp Factor V Activity POC ABG pH POC ABG pCO2 POC ABG pO2 Sodium Potassium 5.3 H Chloride 97.4 L Carbon Dioxide 19 L BUN 93 H Creatinine 2.6 H Glucose POC Glucose Lactic Acid Calcium Phosphorus Magnesium Direct Bilirubin AST ALT Alkaline Phosphatase Lactate Dehydrogenase Troponin T C-Reactive Protein Total Protein Albumin Prealbumin Triglycerides Cholesterol LDL Cholesterol Direct HDL Cholesterol Urine pH Urine WBC (Auto) Urine Creatinine Urine Total Protein Fluid Total Protein Vancomycin Trough Rheumatoid Factor Complement C4 Miscellaneous Test Crossmatch 10/30/16 10/30/16 10/31/16 17:11 23:56 00:40 WBC RBC Hgb Hct MCV MCH MCHC RDW Plt Count Lymph % (Auto) [place] % (Auto) Lymph # [place] # Baso # Seg Neutrophils % Seg Neuts % (Manual) Lymphocytes % (Manual) Monocytes % (Manual) Eosinophils % (Manual) Basophils % (Manual) Nucleated RBC % Seg Neutrophils # Seg Neutrophils # Man Lymphocytes # (Manual) Monocytes # (Manual) Eosinophils # (Manual) PT INR Fibrinogen dRVVT Confirm Interp Factor V Activity POC ABG pH POC ABG pCO2 POC ABG pO2 Sodium Potassium Chloride Carbon Dioxide BUN Creatinine Glucose POC Glucose 106 H 117 H 120 H Lactic Acid Calcium Phosphorus Magnesium Direct Bilirubin AST ALT Alkaline Phosphatase Lactate Dehydrogenase Troponin T C-Reactive Protein Total Protein Albumin Prealbumin Triglycerides Cholesterol LDL Cholesterol Direct HDL Cholesterol Urine pH Urine WBC (Auto) Urine Creatinine Urine Total Protein Fluid Total Protein Vancomycin Trough Rheumatoid Factor Complement C4 Miscellaneous Test Crossmatch 10/31/16 10/31/16 10/31/16 05:43 07:15 07:15 WBC 12.1 H RBC 2.63 L Hgb 7.7 L Hct 23.3 L MCV MCH MCHC RDW 16.7 H Plt Count Lymph % (Auto) 11.7 L [place] % (Auto) 7.7 H Lymph # [place] # 0.9 H Baso # Seg Neutrophils % 78.0 H Seg Neuts % (Manual) Lymphocytes % (Manual) Monocytes % (Manual) Eosinophils % (Manual) Basophils % (Manual) Nucleated RBC % Seg Neutrophils # 9.4 H Seg Neutrophils # Man Lymphocytes # (Manual) Monocytes # (Manual) Eosinophils # (Manual) PT INR Fibrinogen dRVVT Confirm Interp Factor V Activity POC ABG pH POC ABG pCO2 POC ABG pO2 Sodium Potassium Chloride 96.4 L Carbon Dioxide 21 L BUN 99 H Creatinine 2.6 H Glucose 144 H POC Glucose 125 H Lactic Acid Calcium Phosphorus 4.80 H Magnesium Direct Bilirubin AST ALT Alkaline Phosphatase Lactate Dehydrogenase Troponin T C-Reactive Protein Total Protein Albumin Prealbumin Triglycerides Cholesterol LDL Cholesterol Direct HDL Cholesterol Urine pH Urine WBC (Auto) Urine Creatinine Urine Total Protein Fluid Total Protein Vancomycin Trough Rheumatoid Factor Complement C4 Miscellaneous Test Crossmatch 10/31/16 10/31/16 11/01/16 11:46 18:34 00:20 WBC RBC Hgb Hct MCV MCH MCHC RDW Plt Count Lymph % (Auto) [place] % (Auto) Lymph # [place] # Baso # Seg Neutrophils % Seg Neuts % (Manual) Lymphocytes % (Manual) Monocytes % (Manual) Eosinophils % (Manual) Basophils % (Manual) Nucleated RBC % Seg Neutrophils # Seg Neutrophils # Man Lymphocytes # (Manual) Monocytes # (Manual) Eosinophils # (Manual) PT INR Fibrinogen dRVVT Confirm Interp Factor V Activity POC ABG pH POC ABG pCO2 POC ABG pO2 Sodium Potassium Chloride Carbon Dioxide BUN Creatinine Glucose POC Glucose 159 H 140 H 132 H Lactic Acid Calcium Phosphorus Magnesium Direct Bilirubin AST ALT Alkaline Phosphatase Lactate Dehydrogenase Troponin T C-Reactive Protein Total Protein Albumin Prealbumin Triglycerides Cholesterol LDL Cholesterol Direct HDL Cholesterol Urine pH Urine WBC (Auto) Urine Creatinine Urine Total Protein Fluid Total Protein Vancomycin Trough Rheumatoid Factor Complement C4 Miscellaneous Test Crossmatch 11/01/16 11/01/16 11/01/16 04:55 04:55 06:11 WBC 11.2 H RBC 2.68 L Hgb 7.5 L Hct 23.7 L MCV MCH MCHC RDW 16.1 H Plt Count Lymph % (Auto) [place] % (Auto) 9.8 H Lymph # [place] # 1.1 H Baso # Seg Neutrophils % 70.8 H Seg Neuts % (Manual) Lymphocytes % (Manual) Monocytes % (Manual) Eosinophils % (Manual) Basophils % (Manual) Nucleated RBC % Seg Neutrophils # 7.9 H Seg Neutrophils # Man Lymphocytes # (Manual) Monocytes # (Manual) Eosinophils # (Manual) PT INR Fibrinogen dRVVT Confirm Interp Factor V Activity POC ABG pH POC ABG pCO2 POC ABG pO2 Sodium Potassium 3.3 L D Chloride Carbon Dioxide BUN 61 H Creatinine 1.9 H Glucose 114 H POC Glucose 115 H Lactic Acid Calcium Phosphorus 1.80 L D Magnesium Direct Bilirubin AST ALT Alkaline Phosphatase Lactate Dehydrogenase Troponin T C-Reactive Protein Total Protein Albumin Prealbumin Triglycerides Cholesterol LDL Cholesterol Direct HDL Cholesterol Urine pH Urine WBC (Auto) Urine Creatinine Urine Total Protein Fluid Total Protein Vancomycin Trough Rheumatoid Factor Complement C4 Miscellaneous Test Crossmatch 11/01/16 11/01/16 11/01/16 12:29 18:23 23:58 WBC RBC Hgb Hct MCV MCH MCHC RDW Plt Count Lymph % (Auto) [place] % (Auto) Lymph # [place] # Baso # Seg Neutrophils % Seg Neuts % (Manual) Lymphocytes % (Manual) Monocytes % (Manual) Eosinophils % (Manual) Basophils % (Manual) Nucleated RBC % Seg Neutrophils # Seg Neutrophils # Man Lymphocytes # (Manual) Monocytes # (Manual) Eosinophils # (Manual) PT INR Fibrinogen dRVVT Confirm Interp Factor V Activity POC ABG pH POC ABG pCO2 POC ABG pO2 Sodium Potassium Chloride Carbon Dioxide BUN Creatinine Glucose POC Glucose 142 H 143 H 128 H Lactic Acid Calcium Phosphorus Magnesium Direct Bilirubin AST ALT Alkaline Phosphatase Lactate Dehydrogenase Troponin T C-Reactive Protein Total Protein Albumin Prealbumin Triglycerides Cholesterol LDL Cholesterol Direct HDL Cholesterol Urine pH Urine WBC (Auto) Urine Creatinine Urine Total Protein Fluid Total Protein Vancomycin Trough Rheumatoid Factor Complement C4 Miscellaneous Test Crossmatch 11/02/16 11/02/16 11/02/16 04:16 05:29 11:58 WBC RBC Hgb Hct MCV MCH MCHC RDW Plt Count Lymph % (Auto) [place] % (Auto) Lymph # [place] # Baso # Seg Neutrophils % Seg Neuts % (Manual) Lymphocytes % (Manual) Monocytes % (Manual) Eosinophils % (Manual) Basophils % (Manual) Nucleated RBC % Seg Neutrophils # Seg Neutrophils # Man Lymphocytes # (Manual) Monocytes # (Manual) Eosinophils # (Manual) PT INR Fibrinogen dRVVT Confirm Interp Factor V Activity POC ABG pH POC ABG pCO2 POC ABG pO2 Sodium Potassium 3.1 L Chloride Carbon Dioxide BUN 73 H Creatinine 2.3 H Glucose 112 H POC Glucose 135 H 149 H Lactic Acid Calcium Phosphorus Magnesium Direct Bilirubin AST ALT Alkaline Phosphatase Lactate Dehydrogenase Troponin T C-Reactive Protein Total Protein Albumin Prealbumin Triglycerides Cholesterol LDL Cholesterol Direct HDL Cholesterol Urine pH Urine WBC (Auto) Urine Creatinine Urine Total Protein Fluid Total Protein Vancomycin Trough Rheumatoid Factor Complement C4 Miscellaneous Test Crossmatch 11/02/16 11/02/16 11/03/16 17:42 22:54 06:00 WBC RBC Hgb Hct MCV MCH MCHC RDW Plt Count Lymph % (Auto) [place] % (Auto) Lymph # [place] # Baso # Seg Neutrophils % Seg Neuts % (Manual) Lymphocytes % (Manual) Monocytes % (Manual) Eosinophils % (Manual) Basophils % (Manual) Nucleated RBC % Seg Neutrophils # Seg Neutrophils # Man Lymphocytes # (Manual) Monocytes # (Manual) Eosinophils # (Manual) PT INR Fibrinogen dRVVT Confirm Interp Factor V Activity POC ABG pH POC ABG pCO2 POC ABG pO2 Sodium Potassium Chloride 96.7 L Carbon Dioxide BUN 41 H Creatinine 1.5 H Glucose 145 H POC Glucose 182 H 115 H Lactic Acid Calcium Phosphorus 1.60 L D Magnesium 1.50 L Direct Bilirubin AST ALT Alkaline Phosphatase Lactate Dehydrogenase Troponin T C-Reactive Protein Total Protein Albumin Prealbumin Triglycerides Cholesterol LDL Cholesterol Direct HDL Cholesterol Urine pH Urine WBC (Auto) Urine Creatinine Urine Total Protein Fluid Total Protein Vancomycin Trough Rheumatoid Factor Complement C4 Miscellaneous Test Crossmatch 11/03/16 11/03/16 11/03/16 11:53 17:45 23:37 WBC RBC Hgb Hct MCV MCH MCHC RDW Plt Count Lymph % (Auto) [place] % (Auto) Lymph # [place] # Baso # Seg Neutrophils % Seg Neuts % (Manual) Lymphocytes % (Manual) Monocytes % (Manual) Eosinophils % (Manual) Basophils % (Manual) Nucleated RBC % Seg Neutrophils # Seg Neutrophils # Man Lymphocytes # (Manual) Monocytes # (Manual) Eosinophils # (Manual) PT INR Fibrinogen dRVVT Confirm Interp Factor V Activity POC ABG pH POC ABG pCO2 POC ABG pO2 Sodium Potassium Chloride Carbon Dioxide BUN Creatinine Glucose POC Glucose 131 H 134 H 113 H Lactic Acid Calcium Phosphorus Magnesium Direct Bilirubin AST ALT Alkaline Phosphatase Lactate Dehydrogenase Troponin T C-Reactive Protein Total Protein Albumin Prealbumin Triglycerides Cholesterol LDL Cholesterol Direct HDL Cholesterol Urine pH Urine WBC (Auto) Urine Creatinine Urine Total Protein Fluid Total Protein Vancomycin Trough Rheumatoid Factor Complement C4 Miscellaneous Test Crossmatch 11/04/16 11/04/16 11/04/16 05:41 06:00 12:10 WBC RBC Hgb Hct MCV MCH MCHC RDW Plt Count Lymph % (Auto) [place] % (Auto) Lymph # [place] # Baso # Seg Neutrophils % Seg Neuts % (Manual) Lymphocytes % (Manual) Monocytes % (Manual) Eosinophils % (Manual) Basophils % (Manual) Nucleated RBC % Seg Neutrophils # Seg Neutrophils # Man Lymphocytes # (Manual) Monocytes # (Manual) Eosinophils # (Manual) PT INR Fibrinogen dRVVT Confirm Interp Factor V Activity POC ABG pH POC ABG pCO2 POC ABG pO2 Sodium Potassium Chloride 96.7 L Carbon Dioxide BUN 52 H Creatinine 1.9 H Glucose 126 H POC Glucose 137 H 191 H Lactic Acid Calcium Phosphorus Magnesium Direct Bilirubin AST ALT Alkaline Phosphatase Lactate Dehydrogenase Troponin T C-Reactive Protein Total Protein Albumin Prealbumin Triglycerides Cholesterol LDL Cholesterol Direct HDL Cholesterol Urine pH Urine WBC (Auto) Urine Creatinine Urine Total Protein Fluid Total Protein Vancomycin Trough Rheumatoid Factor Complement C4 Miscellaneous Test Crossmatch 11/04/16 11/05/16 11/05/16 22:57 03:10 05:10 WBC RBC Hgb Hct MCV MCH MCHC RDW Plt Count Lymph % (Auto) [place] % (Auto) Lymph # [place] # Baso # Seg Neutrophils % Seg Neuts % (Manual) Lymphocytes % (Manual) Monocytes % (Manual) Eosinophils % (Manual) Basophils % (Manual) Nucleated RBC % Seg Neutrophils # Seg Neutrophils # Man Lymphocytes # (Manual) Monocytes # (Manual) Eosinophils # (Manual) PT INR Fibrinogen dRVVT Confirm Interp Factor V Activity POC ABG pH POC ABG pCO2 POC ABG pO2 Sodium 136 L Potassium Chloride 97.2 L Carbon Dioxide BUN 32 H Creatinine 1.3 H Glucose 123 H POC Glucose 125 H 108 H Lactic Acid Calcium 7.8 L Phosphorus Magnesium Direct Bilirubin AST ALT Alkaline Phosphatase Lactate Dehydrogenase Troponin T C-Reactive Protein Total Protein Albumin Prealbumin Triglycerides Cholesterol LDL Cholesterol Direct HDL Cholesterol Urine pH Urine WBC (Auto) Urine Creatinine Urine Total Protein Fluid Total Protein Vancomycin Trough Rheumatoid Factor Complement C4 Miscellaneous Test Crossmatch 11/05/16 11/05/16 11/05/16 12:23 13:09 13:25 WBC RBC Hgb Hct MCV MCH MCHC RDW Plt Count Lymph % (Auto) [place] % (Auto) Lymph # [place] # Baso # Seg Neutrophils % Seg Neuts % (Manual) Lymphocytes % (Manual) Monocytes % (Manual) Eosinophils % (Manual) Basophils % (Manual) Nucleated RBC % Seg Neutrophils # Seg Neutrophils # Man Lymphocytes # (Manual) Monocytes # (Manual) Eosinophils # (Manual) PT INR Fibrinogen dRVVT Confirm Interp Factor V Activity POC ABG pH POC ABG pCO2 POC ABG pO2 Sodium Potassium Chloride Carbon Dioxide BUN Creatinine Glucose POC Glucose 124 H Lactic Acid Calcium Phosphorus Magnesium Direct Bilirubin AST ALT Alkaline Phosphatase Lactate Dehydrogenase Troponin T C-Reactive Protein 11.40 H Total Protein Albumin Prealbumin Triglycerides Cholesterol LDL Cholesterol Direct HDL Cholesterol Urine pH 9.0 H Urine WBC (Auto) Urine Creatinine Urine Total Protein Fluid Total Protein Vancomycin Trough Rheumatoid Factor Complement C4 Miscellaneous Test Crossmatch 11/05/16 11/05/16 11/05/16 13:25 17:54 23:42 WBC RBC Hgb Hct MCV MCH MCHC RDW Plt Count Lymph % (Auto) [place] % (Auto) Lymph # [place] # Baso # Seg Neutrophils % Seg Neuts % (Manual) Lymphocytes % (Manual) Monocytes % (Manual) Eosinophils % (Manual) Basophils % (Manual) Nucleated RBC % Seg Neutrophils # Seg Neutrophils # Man Lymphocytes # (Manual) Monocytes # (Manual) Eosinophils # (Manual) PT INR Fibrinogen dRVVT Confirm Interp Factor V Activity POC ABG pH POC ABG pCO2 POC ABG pO2 Sodium Potassium Chloride Carbon Dioxide BUN Creatinine Glucose POC Glucose 114 H 134 H Lactic Acid Calcium Phosphorus Magnesium Direct Bilirubin AST ALT Alkaline Phosphatase Lactate Dehydrogenase Troponin T C-Reactive Protein Total Protein Albumin Prealbumin Triglycerides Cholesterol LDL Cholesterol Direct HDL Cholesterol Urine pH Urine WBC (Auto) Urine Creatinine Urine Total Protein Fluid Total Protein Vancomycin Trough Rheumatoid Factor Complement C4 Miscellaneous Test Flexitest 1 H Crossmatch 11/06/16 11/06/16 11/06/16 04:56 06:25 06:25 WBC RBC 2.50 L Hgb 7.3 L Hct 22.5 L MCV MCH MCHC RDW 16.9 H Plt Count Lymph % (Auto) [place] % (Auto) 10.5 H Lymph # [place] # 1.1 H Baso # Seg Neutrophils % Seg Neuts % (Manual) Lymphocytes % (Manual) Monocytes % (Manual) Eosinophils % (Manual) Basophils % (Manual) Nucleated RBC % Seg Neutrophils # Seg Neutrophils # Man Lymphocytes # (Manual) Monocytes # (Manual) Eosinophils # (Manual) PT INR Fibrinogen dRVVT Confirm Interp Factor V Activity POC ABG pH POC ABG pCO2 POC ABG pO2 Sodium Potassium 5.1 H Chloride 95.9 L Carbon Dioxide BUN 52 H Creatinine 1.8 H Glucose 117 H POC Glucose 120 H Lactic Acid Calcium Phosphorus Magnesium Direct Bilirubin AST 103 H ALT 77 H Alkaline Phosphatase 285 H Lactate Dehydrogenase Troponin T C-Reactive Protein Total Protein 6.2 L Albumin 1.8 L Prealbumin 0.180 L Triglycerides Cholesterol LDL Cholesterol Direct HDL Cholesterol Urine pH Urine WBC (Auto) Urine Creatinine Urine Total Protein Fluid Total Protein Vancomycin Trough Rheumatoid Factor Complement C4 Miscellaneous Test Crossmatch 11/06/16 11/06/16 11/06/16 11:56 17:14 23:52 WBC RBC Hgb Hct MCV MCH MCHC RDW Plt Count Lymph % (Auto) [place] % (Auto) Lymph # [place] # Baso # Seg Neutrophils % Seg Neuts % (Manual) Lymphocytes % (Manual) Monocytes % (Manual) Eosinophils % (Manual) Basophils % (Manual) Nucleated RBC % Seg Neutrophils # Seg Neutrophils # Man Lymphocytes # (Manual) Monocytes # (Manual) Eosinophils # (Manual) PT INR Fibrinogen dRVVT Confirm Interp Factor V Activity POC ABG pH POC ABG pCO2 POC ABG pO2 Sodium Potassium Chloride Carbon Dioxide BUN Creatinine Glucose POC Glucose 141 H 125 H 130 H Lactic Acid Calcium Phosphorus Magnesium Direct Bilirubin AST ALT Alkaline Phosphatase Lactate Dehydrogenase Troponin T C-Reactive Protein Total Protein Albumin Prealbumin Triglycerides Cholesterol LDL Cholesterol Direct HDL Cholesterol Urine pH Urine WBC (Auto) Urine Creatinine Urine Total Protein Fluid Total Protein Vancomycin Trough Rheumatoid Factor Complement C4 Miscellaneous Test Crossmatch 11/07/16 11/07/16 11/07/16 06:30 06:30 09:37 WBC RBC 2.18 L Hgb 6.3 L Hct 19.7 L* MCV MCH MCHC RDW 16.8 H Plt Count Lymph % (Auto) [place] % (Auto) 10.0 H Lymph # [place] # 1.0 H Baso # Seg Neutrophils % Seg Neuts % (Manual) Lymphocytes % (Manual) Monocytes % (Manual) Eosinophils % (Manual) Basophils % (Manual) Nucleated RBC % Seg Neutrophils # Seg Neutrophils # Man Lymphocytes # (Manual) Monocytes # (Manual) Eosinophils # (Manual) PT INR Fibrinogen dRVVT Confirm Interp Factor V Activity POC ABG pH POC ABG pCO2 POC ABG pO2 Sodium 135 L Potassium Chloride 95.6 L Carbon Dioxide BUN 70 H Creatinine 2.0 H Glucose 126 H POC Glucose Lactic Acid Calcium Phosphorus Magnesium Direct Bilirubin AST ALT Alkaline Phosphatase Lactate Dehydrogenase Troponin T C-Reactive Protein Total Protein Albumin Prealbumin Triglycerides Cholesterol LDL Cholesterol Direct HDL Cholesterol Urine pH Urine WBC (Auto) Urine Creatinine Urine Total Protein Fluid Total Protein Vancomycin Trough Rheumatoid Factor Complement C4 Miscellaneous Test Crossmatch See Detail 11/07/16 11/07/16 11/07/16 12:52 18:51 21:26 WBC RBC Hgb Hct MCV MCH MCHC RDW Plt Count Lymph % (Auto) [place] % (Auto) Lymph # [place] # Baso # Seg Neutrophils % Seg Neuts % (Manual) Lymphocytes % (Manual) Monocytes % (Manual) Eosinophils % (Manual) Basophils % (Manual) Nucleated RBC % Seg Neutrophils # Seg Neutrophils # Man Lymphocytes # (Manual) Monocytes # (Manual) Eosinophils # (Manual) PT INR Fibrinogen dRVVT Confirm Interp Factor V Activity POC ABG pH 7.523 H POC ABG pCO2 34.6 L POC ABG pO2 53 L Sodium Potassium Chloride Carbon Dioxide BUN Creatinine Glucose POC Glucose 142 H 155 H Lactic Acid Calcium Phosphorus Magnesium Direct Bilirubin AST ALT Alkaline Phosphatase Lactate Dehydrogenase Troponin T C-Reactive Protein Total Protein Albumin Prealbumin Triglycerides Cholesterol LDL Cholesterol Direct HDL Cholesterol Urine pH Urine WBC (Auto) Urine Creatinine Urine Total Protein Fluid Total Protein Vancomycin Trough Rheumatoid Factor Complement C4 Miscellaneous Test Crossmatch 11/07/16 11/08/16 11/08/16 21:34 13:03 23:37 WBC RBC 2.63 L Hgb 7.7 L Hct 22.7 L MCV MCH MCHC RDW 17.0 H Plt Count Lymph % (Auto) [place] % (Auto) Lymph # [place] # Baso # Seg Neutrophils % Seg Neuts % (Manual) Lymphocytes % (Manual) Monocytes % (Manual) Eosinophils % (Manual) Basophils % (Manual) Nucleated RBC % Seg Neutrophils # Seg Neutrophils # Man Lymphocytes # (Manual) Monocytes # (Manual) Eosinophils # (Manual) PT INR Fibrinogen dRVVT Confirm Interp Factor V Activity POC ABG pH 7.478 H POC ABG pCO2 34.0 L POC ABG pO2 50 L Sodium Potassium Chloride Carbon Dioxide BUN Creatinine Glucose POC Glucose 113 H Lactic Acid Calcium Phosphorus Magnesium Direct Bilirubin AST ALT Alkaline Phosphatase Lactate Dehydrogenase Troponin T C-Reactive Protein Total Protein Albumin Prealbumin Triglycerides Cholesterol LDL Cholesterol Direct HDL Cholesterol Urine pH Urine WBC (Auto) Urine Creatinine Urine Total Protein Fluid Total Protein Vancomycin Trough Rheumatoid Factor Complement C4 Miscellaneous Test Crossmatch 11/09/16 11/09/16 11/09/16 04:35 10:15 18:21 WBC RBC 2.68 L Hgb 7.8 L Hct 23.3 L MCV MCH MCHC RDW 17.0 H Plt Count Lymph % (Auto) [place] % (Auto) 12.1 H Lymph # [place] # 1.1 H Baso # Seg Neutrophils % Seg Neuts % (Manual) Lymphocytes % (Manual) Monocytes % (Manual) Eosinophils % (Manual) Basophils % (Manual) Nucleated RBC % Seg Neutrophils # Seg Neutrophils # Man Lymphocytes # (Manual) Monocytes # (Manual) Eosinophils # (Manual) PT INR Fibrinogen dRVVT Confirm Interp Factor V Activity POC ABG pH POC ABG pCO2 POC ABG pO2 Sodium Potassium Chloride Carbon Dioxide BUN 51 H Creatinine 1.8 H Glucose POC Glucose 60 L Lactic Acid Calcium 8.3 L Phosphorus Magnesium Direct Bilirubin AST ALT Alkaline Phosphatase Lactate Dehydrogenase Troponin T C-Reactive Protein Total Protein Albumin Prealbumin Triglycerides Cholesterol LDL Cholesterol Direct HDL Cholesterol Urine pH Urine WBC (Auto) Urine Creatinine Urine Total Protein Fluid Total Protein Vancomycin Trough Rheumatoid Factor Complement C4 Miscellaneous Test Crossmatch 11/09/16 11/10/16 11/10/16 18:55 07:00 11:51 WBC RBC Hgb Hct MCV MCH MCHC RDW Plt Count Lymph % (Auto) [place] % (Auto) Lymph # [place] # Baso # Seg Neutrophils % Seg Neuts % (Manual) Lymphocytes % (Manual) Monocytes % (Manual) Eosinophils % (Manual) Basophils % (Manual) Nucleated RBC % Seg Neutrophils # Seg Neutrophils # Man Lymphocytes # (Manual) Monocytes # (Manual) Eosinophils # (Manual) PT INR Fibrinogen dRVVT Confirm Interp Factor V Activity POC ABG pH POC ABG pCO2 POC ABG pO2 Sodium Potassium 3.0 L D Chloride 97.4 L Carbon Dioxide BUN 28 H Creatinine 1.3 H Glucose POC Glucose 68 L 120 H Lactic Acid Calcium 7.8 L Phosphorus Magnesium Direct Bilirubin AST ALT Alkaline Phosphatase Lactate Dehydrogenase Troponin T C-Reactive Protein Total Protein Albumin Prealbumin Triglycerides Cholesterol LDL Cholesterol Direct HDL Cholesterol Urine pH Urine WBC (Auto) Urine Creatinine Urine Total Protein Fluid Total Protein Vancomycin Trough Rheumatoid Factor Complement C4 Miscellaneous Test Crossmatch 11/10/16 11/11/16 11/11/16 14:20 06:59 06:59 WBC RBC 2.81 L Hgb 8.1 L Hct 24.4 L MCV MCH MCHC RDW 16.4 H Plt Count Lymph % (Auto) [place] % (Auto) 10.8 H Lymph # [place] # 1.0 H Baso # Seg Neutrophils % Seg Neuts % (Manual) Lymphocytes % (Manual) Monocytes % (Manual) Eosinophils % (Manual) Basophils % (Manual) Nucleated RBC % Seg Neutrophils # Seg Neutrophils # Man Lymphocytes # (Manual) Monocytes # (Manual) Eosinophils # (Manual) PT INR Fibrinogen dRVVT Confirm Interp Factor V Activity POC ABG pH POC ABG pCO2 POC ABG pO2 Sodium Potassium Chloride Carbon Dioxide BUN Creatinine Glucose POC Glucose Lactic Acid Calcium Phosphorus Magnesium Direct Bilirubin AST ALT Alkaline Phosphatase Lactate Dehydrogenase 196 H Troponin T C-Reactive Protein Total Protein 6.1 L Albumin Prealbumin Triglycerides Cholesterol LDL Cholesterol Direct HDL Cholesterol Urine pH Urine WBC (Auto) Urine Creatinine Urine Total Protein Fluid Total Protein < 3.0 L Vancomycin Trough Rheumatoid Factor Complement C4 Miscellaneous Test Crossmatch 11/11/16 11/11/16 11/12/16 06:59 09:50 04:00 WBC RBC Hgb Hct MCV MCH MCHC RDW Plt Count Lymph % (Auto) [place] % (Auto) Lymph # [place] # Baso # Seg Neutrophils % Seg Neuts % (Manual) Lymphocytes % (Manual) Monocytes % (Manual) Eosinophils % (Manual) Basophils % (Manual) Nucleated RBC % Seg Neutrophils # Seg Neutrophils # Man Lymphocytes # (Manual) Monocytes # (Manual) Eosinophils # (Manual) PT INR 1.18 H Fibrinogen dRVVT Confirm Interp Factor V Activity POC ABG pH POC ABG pCO2 POC ABG pO2 Sodium 136 L 133 L Potassium Chloride 96.1 L 94.8 L Carbon Dioxide 21 L BUN 37 H 42 H Creatinine 1.8 H 2.0 H Glucose POC Glucose Lactic Acid Calcium Phosphorus Magnesium Direct Bilirubin AST ALT Alkaline Phosphatase Lactate Dehydrogenase Troponin T C-Reactive Protein Total Protein Albumin Prealbumin Triglycerides Cholesterol LDL Cholesterol Direct HDL Cholesterol Urine pH Urine WBC (Auto) Urine Creatinine Urine Total Protein Fluid Total Protein Vancomycin Trough Rheumatoid Factor Complement C4 Miscellaneous Test Crossmatch 11/12/16 11/12/16 11/13/16 04:00 23:55 05:53 WBC RBC Hgb 8.9 L Hct 27.2 L MCV MCH MCHC RDW Plt Count Lymph % (Auto) [place] % (Auto) Lymph # [place] # Baso # Seg Neutrophils % Seg Neuts % (Manual) Lymphocytes % (Manual) Monocytes % (Manual) Eosinophils % (Manual) Basophils % (Manual) Nucleated RBC % Seg Neutrophils # Seg Neutrophils # Man Lymphocytes # (Manual) Monocytes # (Manual) Eosinophils # (Manual) PT INR Fibrinogen dRVVT Confirm Interp Factor V Activity POC ABG pH POC ABG pCO2 POC ABG pO2 Sodium Potassium Chloride Carbon Dioxide BUN Creatinine Glucose POC Glucose 132 H 120 H Lactic Acid Calcium Phosphorus Magnesium Direct Bilirubin AST ALT Alkaline Phosphatase Lactate Dehydrogenase Troponin T C-Reactive Protein Total Protein Albumin Prealbumin Triglycerides Cholesterol LDL Cholesterol Direct HDL Cholesterol Urine pH Urine WBC (Auto) Urine Creatinine Urine Total Protein Fluid Total Protein Vancomycin Trough Rheumatoid Factor Complement C4 Miscellaneous Test Crossmatch 11/13/16 11/13/16 11/13/16 11:43 17:09 23:41 WBC RBC Hgb Hct MCV MCH MCHC RDW Plt Count Lymph % (Auto) [place] % (Auto) Lymph # [place] # Baso # Seg Neutrophils % Seg Neuts % (Manual) Lymphocytes % (Manual) Monocytes % (Manual) Eosinophils % (Manual) Basophils % (Manual) Nucleated RBC % Seg Neutrophils # Seg Neutrophils # Man Lymphocytes # (Manual) Monocytes # (Manual) Eosinophils # (Manual) PT INR Fibrinogen dRVVT Confirm Interp Factor V Activity POC ABG pH POC ABG pCO2 POC ABG pO2 Sodium Potassium Chloride Carbon Dioxide BUN Creatinine Glucose POC Glucose 114 H 113 H 108 H Lactic Acid Calcium Phosphorus Magnesium Direct Bilirubin AST ALT Alkaline Phosphatase Lactate Dehydrogenase Troponin T C-Reactive Protein Total Protein Albumin Prealbumin Triglycerides Cholesterol LDL Cholesterol Direct HDL Cholesterol Urine pH Urine WBC (Auto) Urine Creatinine Urine Total Protein Fluid Total Protein Vancomycin Trough Rheumatoid Factor Complement C4 Miscellaneous Test Crossmatch 11/13/16 11/15/16 11/15/16 Unknown 00:37 03:30 WBC 11.2 H RBC 2.72 L Hgb 7.6 L Hct 23.4 L MCV MCH MCHC RDW 16.5 H Plt Count Lymph % (Auto) [place] % (Auto) Lymph # [place] # Baso # Seg Neutrophils % Seg Neuts % (Manual) Lymphocytes % (Manual) Monocytes % (Manual) Eosinophils % (Manual) Basophils % (Manual) Nucleated RBC % Seg Neutrophils # Seg Neutrophils # Man Lymphocytes # (Manual) Monocytes # (Manual) Eosinophils # (Manual) PT INR Fibrinogen dRVVT Confirm Interp Factor V Activity POC ABG pH POC ABG pCO2 POC ABG pO2 Sodium 135 L Potassium Chloride 95.2 L Carbon Dioxide BUN 52 H Creatinine 2.2 H Glucose POC Glucose 108 H Lactic Acid Calcium Phosphorus Magnesium Direct Bilirubin AST ALT Alkaline Phosphatase Lactate Dehydrogenase Troponin T C-Reactive Protein Total Protein Albumin Prealbumin Triglycerides Cholesterol LDL Cholesterol Direct HDL Cholesterol Urine pH Urine WBC (Auto) Urine Creatinine Urine Total Protein Fluid Total Protein Vancomycin Trough Rheumatoid Factor Complement C4 Miscellaneous Test Crossmatch 11/15/16 11/15/16 11/15/16 03:30 05:04 11:50 WBC RBC Hgb Hct MCV MCH MCHC RDW Plt Count Lymph % (Auto) [place] % (Auto) Lymph # [place] # Baso # Seg Neutrophils % Seg Neuts % (Manual) Lymphocytes % (Manual) Monocytes % (Manual) Eosinophils % (Manual) Basophils % (Manual) Nucleated RBC % Seg Neutrophils # Seg Neutrophils # Man Lymphocytes # (Manual) Monocytes # (Manual) Eosinophils # (Manual) PT INR Fibrinogen dRVVT Confirm Interp Factor V Activity POC ABG pH POC ABG pCO2 POC ABG pO2 Sodium Potassium 3.4 L Chloride Carbon Dioxide BUN 25 H Creatinine 1.5 H Glucose 103 H POC Glucose 121 H 144 H Lactic Acid Calcium Phosphorus Magnesium Direct Bilirubin AST ALT Alkaline Phosphatase Lactate Dehydrogenase Troponin T C-Reactive Protein Total Protein Albumin Prealbumin Triglycerides Cholesterol LDL Cholesterol Direct HDL Cholesterol Urine pH Urine WBC (Auto) Urine Creatinine Urine Total Protein Fluid Total Protein Vancomycin Trough Rheumatoid Factor Complement C4 Miscellaneous Test Crossmatch 11/15/16 11/15/16 11/16/16 21:28 23:20 11:44 WBC RBC Hgb Hct MCV MCH MCHC RDW Plt Count Lymph % (Auto) [place] % (Auto) Lymph # [place] # Baso # Seg Neutrophils % Seg Neuts % (Manual) Lymphocytes % (Manual) Monocytes % (Manual) Eosinophils % (Manual) Basophils % (Manual) Nucleated RBC % Seg Neutrophils # Seg Neutrophils # Man Lymphocytes # (Manual) Monocytes # (Manual) Eosinophils # (Manual) PT INR Fibrinogen dRVVT Confirm Interp Factor V Activity POC ABG pH 7.462 H POC ABG pCO2 POC ABG pO2 71 L Sodium Potassium Chloride Carbon Dioxide BUN Creatinine Glucose POC Glucose 116 H 133 H Lactic Acid Calcium Phosphorus Magnesium Direct Bilirubin AST ALT Alkaline Phosphatase Lactate Dehydrogenase Troponin T C-Reactive Protein Total Protein Albumin Prealbumin Triglycerides Cholesterol LDL Cholesterol Direct HDL Cholesterol Urine pH Urine WBC (Auto) Urine Creatinine Urine Total Protein Fluid Total Protein Vancomycin Trough Rheumatoid Factor Complement C4 Miscellaneous Test Crossmatch 11/16/16 11/16/16 11/16/16 12:20 17:05 23:35 WBC 11.7 H RBC 2.73 L Hgb 7.6 L Hct 23.7 L MCV MCH MCHC RDW 16.6 H Plt Count Lymph % (Auto) [place] % (Auto) Lymph # [place] # Baso # Seg Neutrophils % Seg Neuts % (Manual) Lymphocytes % (Manual) Monocytes % (Manual) Eosinophils % (Manual) Basophils % (Manual) Nucleated RBC % Seg Neutrophils # Seg Neutrophils # Man Lymphocytes # (Manual) Monocytes # (Manual) Eosinophils # (Manual) PT INR Fibrinogen dRVVT Confirm Interp Factor V Activity POC ABG pH POC ABG pCO2 POC ABG pO2 Sodium Potassium Chloride Carbon Dioxide BUN Creatinine Glucose POC Glucose 154 H 125 H Lactic Acid Calcium Phosphorus Magnesium Direct Bilirubin AST ALT Alkaline Phosphatase Lactate Dehydrogenase Troponin T C-Reactive Protein Total Protein Albumin Prealbumin Triglycerides Cholesterol LDL Cholesterol Direct HDL Cholesterol Urine pH Urine WBC (Auto) Urine Creatinine Urine Total Protein Fluid Total Protein Vancomycin Trough Rheumatoid Factor Complement C4 Miscellaneous Test Crossmatch 11/17/16 11/17/16 11/17/16 03:20 03:20 03:20 WBC RBC 2.55 L Hgb 7.3 L Hct 21.9 L MCV MCH MCHC RDW 16.6 H Plt Count Lymph % (Auto) [place] % (Auto) 11.5 H Lymph # [place] # 1.1 H Baso # Seg Neutrophils % Seg Neuts % (Manual) Lymphocytes % (Manual) Monocytes % (Manual) Eosinophils % (Manual) Basophils % (Manual) Nucleated RBC % Seg Neutrophils # Seg Neutrophils # Man Lymphocytes # (Manual) Monocytes # (Manual) Eosinophils # (Manual) PT 16.8 H INR 1.37 H Fibrinogen dRVVT Confirm Interp Factor V Activity POC ABG pH POC ABG pCO2 POC ABG pO2 Sodium Potassium 3.5 L Chloride Carbon Dioxide BUN 21 H Creatinine Glucose POC Glucose Lactic Acid Calcium 7.9 L Phosphorus Magnesium Direct Bilirubin AST ALT Alkaline Phosphatase Lactate Dehydrogenase Troponin T C-Reactive Protein Total Protein Albumin Prealbumin Triglycerides Cholesterol LDL Cholesterol Direct HDL Cholesterol Urine pH Urine WBC (Auto) Urine Creatinine Urine Total Protein Fluid Total Protein Vancomycin Trough Rheumatoid Factor Complement C4 Miscellaneous Test Crossmatch 11/17/16 11/17/16 11/17/16 06:34 11:21 21:22 WBC RBC Hgb Hct MCV MCH MCHC RDW Plt Count Lymph % (Auto) [place] % (Auto) Lymph # [place] # Baso # Seg Neutrophils % Seg Neuts % (Manual) Lymphocytes % (Manual) Monocytes % (Manual) Eosinophils % (Manual) Basophils % (Manual) Nucleated RBC % Seg Neutrophils # Seg Neutrophils # Man Lymphocytes # (Manual) Monocytes # (Manual) Eosinophils # (Manual) PT INR Fibrinogen dRVVT Confirm Interp Factor V Activity POC ABG pH 7.467 H POC ABG pCO2 POC ABG pO2 73 L Sodium Potassium Chloride Carbon Dioxide BUN Creatinine Glucose POC Glucose 121 H 119 H Lactic Acid Calcium Phosphorus Magnesium Direct Bilirubin AST ALT Alkaline Phosphatase Lactate Dehydrogenase Troponin T C-Reactive Protein Total Protein Albumin Prealbumin Triglycerides Cholesterol LDL Cholesterol Direct HDL Cholesterol Urine pH Urine WBC (Auto) Urine Creatinine Urine Total Protein Fluid Total Protein Vancomycin Trough Rheumatoid Factor Complement C4 Miscellaneous Test Crossmatch 11/18/16 11/18/16 11/19/16 12:16 17:19 00:00 WBC RBC Hgb Hct MCV MCH MCHC RDW Plt Count Lymph % (Auto) [place] % (Auto) Lymph # [place] # Baso # Seg Neutrophils % Seg Neuts % (Manual) Lymphocytes % (Manual) Monocytes % (Manual) Eosinophils % (Manual) Basophils % (Manual) Nucleated RBC % Seg Neutrophils # Seg Neutrophils # Man Lymphocytes # (Manual) Monocytes # (Manual) Eosinophils # (Manual) PT INR Fibrinogen dRVVT Confirm Interp Factor V Activity POC ABG pH POC ABG pCO2 POC ABG pO2 Sodium Potassium Chloride Carbon Dioxide BUN Creatinine Glucose POC Glucose 124 H 162 H 139 H Lactic Acid Calcium Phosphorus Magnesium Direct Bilirubin AST ALT Alkaline Phosphatase Lactate Dehydrogenase Troponin T C-Reactive Protein Total Protein Albumin Prealbumin Triglycerides Cholesterol LDL Cholesterol Direct HDL Cholesterol Urine pH Urine WBC (Auto) Urine Creatinine Urine Total Protein Fluid Total Protein Vancomycin Trough Rheumatoid Factor Complement C4 Miscellaneous Test Crossmatch 11/19/16 11/19/16 11/20/16 05:00 12:43 00:40 WBC RBC Hgb Hct MCV MCH MCHC RDW Plt Count Lymph % (Auto) [place] % (Auto) Lymph # [place] # Baso # Seg Neutrophils % Seg Neuts % (Manual) Lymphocytes % (Manual) Monocytes % (Manual) Eosinophils % (Manual) Basophils % (Manual) Nucleated RBC % Seg Neutrophils # Seg Neutrophils # Man Lymphocytes # (Manual) Monocytes # (Manual) Eosinophils # (Manual) PT INR Fibrinogen dRVVT Confirm Interp Factor V Activity POC ABG pH POC ABG pCO2 POC ABG pO2 Sodium Potassium Chloride Carbon Dioxide BUN Creatinine Glucose POC Glucose 110 H 125 H 136 H Lactic Acid Calcium Phosphorus Magnesium Direct Bilirubin AST ALT Alkaline Phosphatase Lactate Dehydrogenase Troponin T C-Reactive Protein Total Protein Albumin Prealbumin Triglycerides Cholesterol LDL Cholesterol Direct HDL Cholesterol Urine pH Urine WBC (Auto) Urine Creatinine Urine Total Protein Fluid Total Protein Vancomycin Trough Rheumatoid Factor Complement C4 Miscellaneous Test Crossmatch 11/20/16 11/20/16 11/20/16 05:00 05:00 05:51 WBC 13.1 H RBC 2.74 L Hgb 7.7 L Hct 23.6 L MCV MCH MCHC RDW 16.9 H Plt Count Lymph % (Auto) [place] % (Auto) 10.8 H Lymph # [place] # 1.4 H Baso # Seg Neutrophils % Seg Neuts % (Manual) Lymphocytes % (Manual) Monocytes % (Manual) Eosinophils % (Manual) Basophils % (Manual) Nucleated RBC % Seg Neutrophils # 7.9 H Seg Neutrophils # Man Lymphocytes # (Manual) Monocytes # (Manual) Eosinophils # (Manual) PT INR Fibrinogen dRVVT Confirm Interp Factor V Activity POC ABG pH POC ABG pCO2 POC ABG pO2 Sodium Potassium Chloride Carbon Dioxide BUN 31 H Creatinine 1.8 H Glucose 129 H POC Glucose 133 H Lactic Acid Calcium Phosphorus Magnesium Direct Bilirubin AST ALT Alkaline Phosphatase Lactate Dehydrogenase Troponin T C-Reactive Protein Total Protein Albumin Prealbumin Triglycerides Cholesterol LDL Cholesterol Direct HDL Cholesterol Urine pH Urine WBC (Auto) Urine Creatinine Urine Total Protein Fluid Total Protein Vancomycin Trough Rheumatoid Factor Complement C4 Miscellaneous Test Crossmatch 11/20/16 11/20/16 11/21/16 12:40 18:10 01:20 WBC RBC Hgb Hct MCV MCH MCHC RDW Plt Count Lymph % (Auto) [place] % (Auto) Lymph # [place] # Baso # Seg Neutrophils % Seg Neuts % (Manual) Lymphocytes % (Manual) Monocytes % (Manual) Eosinophils % (Manual) Basophils % (Manual) Nucleated RBC % Seg Neutrophils # Seg Neutrophils # Man Lymphocytes # (Manual) Monocytes # (Manual) Eosinophils # (Manual) PT INR Fibrinogen dRVVT Confirm Interp Factor V Activity POC ABG pH POC ABG pCO2 POC ABG pO2 Sodium Potassium Chloride Carbon Dioxide BUN Creatinine Glucose POC Glucose 134 H 138 H 136 H Lactic Acid Calcium Phosphorus Magnesium Direct Bilirubin AST ALT Alkaline Phosphatase Lactate Dehydrogenase Troponin T C-Reactive Protein Total Protein Albumin Prealbumin Triglycerides Cholesterol LDL Cholesterol Direct HDL Cholesterol Urine pH Urine WBC (Auto) Urine Creatinine Urine Total Protein Fluid Total Protein Vancomycin Trough Rheumatoid Factor Complement C4 Miscellaneous Test Crossmatch 11/21/16 11/21/16 11/21/16 07:04 07:45 07:45 WBC 22.0 H RBC 2.91 L Hgb 8.2 L Hct 25.4 L MCV MCH MCHC RDW 17.1 H Plt Count Lymph % (Auto) [place] % (Auto) Lymph # [place] # Baso # Seg Neutrophils % Seg Neuts % (Manual) Lymphocytes % (Manual) 8.0 L Monocytes % (Manual) Eosinophils % (Manual) Basophils % (Manual) Nucleated RBC % Seg Neutrophils # Seg Neutrophils # Man 14.7 H Lymphocytes # (Manual) Monocytes # (Manual) 1.1 H Eosinophils # (Manual) PT INR Fibrinogen dRVVT Confirm Interp Factor V Activity POC ABG pH POC ABG pCO2 POC ABG pO2 Sodium Potassium Chloride Carbon Dioxide BUN 42 H Creatinine 2.0 H Glucose POC Glucose 108 H Lactic Acid Calcium Phosphorus Magnesium Direct Bilirubin AST ALT Alkaline Phosphatase Lactate Dehydrogenase Troponin T C-Reactive Protein Total Protein Albumin Prealbumin Triglycerides Cholesterol LDL Cholesterol Direct HDL Cholesterol Urine pH Urine WBC (Auto) Urine Creatinine Urine Total Protein Fluid Total Protein Vancomycin Trough Rheumatoid Factor Complement C4 Miscellaneous Test Crossmatch 11/21/16 11/21/16 11/21/16 08:38 10:09 11:20 WBC RBC Hgb Hct MCV MCH MCHC RDW Plt Count Lymph % (Auto) [place] % (Auto) Lymph # [place] # Baso # Seg Neutrophils % Seg Neuts % (Manual) Lymphocytes % (Manual) Monocytes % (Manual) Eosinophils % (Manual) Basophils % (Manual) Nucleated RBC % Seg Neutrophils # Seg Neutrophils # Man Lymphocytes # (Manual) Monocytes # (Manual) Eosinophils # (Manual) PT INR Fibrinogen dRVVT Confirm Interp Factor V Activity POC ABG pH 7.346 L POC ABG pCO2 34.4 L POC ABG pO2 314 H Sodium Potassium Chloride Carbon Dioxide BUN Creatinine Glucose POC Glucose 195 H 153 H Lactic Acid Calcium Phosphorus Magnesium Direct Bilirubin AST ALT Alkaline Phosphatase Lactate Dehydrogenase Troponin T C-Reactive Protein Total Protein Albumin Prealbumin Triglycerides Cholesterol LDL Cholesterol Direct HDL Cholesterol Urine pH Urine WBC (Auto) Urine Creatinine Urine Total Protein Fluid Total Protein Vancomycin Trough Rheumatoid Factor Complement C4 Miscellaneous Test Crossmatch 11/21/16 11/22/16 11/22/16 23:37 04:48 05:00 WBC 29.7 H RBC 2.73 L Hgb 7.5 L Hct 24.2 L MCV MCH 27 L MCHC RDW 17.4 H Plt Count Lymph % (Auto) [place] % (Auto) Lymph # [place] # Baso # Seg Neutrophils % Seg Neuts % (Manual) Lymphocytes % (Manual) 7.0 L Monocytes % (Manual) Eosinophils % (Manual) Basophils % (Manual) Nucleated RBC % Seg Neutrophils # Seg Neutrophils # Man 15.4 H Lymphocytes # (Manual) Monocytes # (Manual) Eosinophils # (Manual) PT INR Fibrinogen dRVVT Confirm Interp Factor V Activity POC ABG pH POC ABG pCO2 24.6 L POC ABG pO2 189 H Sodium Potassium Chloride Carbon Dioxide BUN Creatinine Glucose POC Glucose 65 L Lactic Acid Calcium Phosphorus Magnesium Direct Bilirubin AST ALT Alkaline Phosphatase Lactate Dehydrogenase Troponin T C-Reactive Protein Total Protein Albumin Prealbumin Triglycerides Cholesterol LDL Cholesterol Direct HDL Cholesterol Urine pH Urine WBC (Auto) Urine Creatinine Urine Total Protein Fluid Total Protein Vancomycin Trough Rheumatoid Factor Complement C4 Miscellaneous Test Crossmatch 11/22/16 11/23/16 11/23/16 05:00 03:44 04:06 WBC RBC 2.52 L Hgb 7.2 L Hct 21.5 L MCV MCH MCHC RDW 17.1 H Plt Count Lymph % (Auto) [place] % (Auto) 12.4 H Lymph # [place] # 1.4 H Baso # Seg Neutrophils % Seg Neuts % (Manual) Lymphocytes % (Manual) Monocytes % (Manual) Eosinophils % (Manual) Basophils % (Manual) Nucleated RBC % Seg Neutrophils # Seg Neutrophils # Man Lymphocytes # (Manual) Monocytes # (Manual) Eosinophils # (Manual) PT INR Fibrinogen dRVVT Confirm Interp Factor V Activity POC ABG pH 7.493 H POC ABG pCO2 29.5 L POC ABG pO2 49 L Sodium 134 L Potassium Chloride 95.9 L Carbon Dioxide 14 L D BUN 51 H Creatinine 2.6 H Glucose POC Glucose Lactic Acid Calcium Phosphorus Magnesium Direct Bilirubin AST ALT Alkaline Phosphatase Lactate Dehydrogenase Troponin T C-Reactive Protein Total Protein Albumin Prealbumin Triglycerides Cholesterol LDL Cholesterol Direct HDL Cholesterol Urine pH Urine WBC (Auto) Urine Creatinine Urine Total Protein Fluid Total Protein Vancomycin Trough Rheumatoid Factor Complement C4 Miscellaneous Test Crossmatch 11/23/16 11/23/16 11/24/16 04:06 11:29 06:39 WBC RBC Hgb Hct MCV MCH MCHC RDW Plt Count Lymph % (Auto) [place] % (Auto) Lymph # [place] # Baso # Seg Neutrophils % Seg Neuts % (Manual) Lymphocytes % (Manual) Monocytes % (Manual) Eosinophils % (Manual) Basophils % (Manual) Nucleated RBC % Seg Neutrophils # Seg Neutrophils # Man Lymphocytes # (Manual) Monocytes # (Manual) Eosinophils # (Manual) PT INR Fibrinogen dRVVT Confirm Interp Factor V Activity POC ABG pH POC ABG pCO2 POC ABG pO2 Sodium 136 L Potassium Chloride 95.2 L Carbon Dioxide BUN 60 H Creatinine 2.9 H Glucose POC Glucose 69 L 305 H Lactic Acid Calcium Phosphorus Magnesium 1.60 L Direct Bilirubin AST ALT Alkaline Phosphatase Lactate Dehydrogenase Troponin T C-Reactive Protein Total Protein Albumin Prealbumin Triglycerides Cholesterol LDL Cholesterol Direct HDL Cholesterol Urine pH Urine WBC (Auto) Urine Creatinine Urine Total Protein Fluid Total Protein Vancomycin Trough Rheumatoid Factor Complement C4 Miscellaneous Test Crossmatch 11/24/16 11/24/16 11/24/16 06:43 08:08 08:08 WBC 11.2 H RBC 2.47 L Hgb 6.8 L Hct 20.6 L MCV MCH MCHC RDW 17.0 H Plt Count Lymph % (Auto) [place] % (Auto) 10.3 H Lymph # [place] # 1.2 H Baso # Seg Neutrophils % Seg Neuts % (Manual) Lymphocytes % (Manual) Monocytes % (Manual) Eosinophils % (Manual) Basophils % (Manual) Nucleated RBC % Seg Neutrophils # Seg Neutrophils # Man Lymphocytes # (Manual) Monocytes # (Manual) Eosinophils # (Manual) PT INR Fibrinogen dRVVT Confirm Interp Factor V Activity POC ABG pH POC ABG pCO2 POC ABG pO2 Sodium 135 L Potassium Chloride 96.3 L Carbon Dioxide BUN 61 H Creatinine 3.1 H Glucose POC Glucose 62 L Lactic Acid Calcium 8.2 L Phosphorus Magnesium Direct Bilirubin AST ALT Alkaline Phosphatase Lactate Dehydrogenase Troponin T C-Reactive Protein Total Protein Albumin Prealbumin Triglycerides Cholesterol LDL Cholesterol Direct HDL Cholesterol Urine pH Urine WBC (Auto) Urine Creatinine Urine Total Protein Fluid Total Protein Vancomycin Trough Rheumatoid Factor Complement C4 Miscellaneous Test Crossmatch 11/24/16 11/24/16 11/24/16 08:34 11:20 12:41 WBC RBC Hgb Hct MCV MCH MCHC RDW Plt Count Lymph % (Auto) [place] % (Auto) Lymph # [place] # Baso # Seg Neutrophils % Seg Neuts % (Manual) Lymphocytes % (Manual) Monocytes % (Manual) Eosinophils % (Manual) Basophils % (Manual) Nucleated RBC % Seg Neutrophils # Seg Neutrophils # Man Lymphocytes # (Manual) Monocytes # (Manual) Eosinophils # (Manual) PT INR Fibrinogen dRVVT Confirm Interp Factor V Activity POC ABG pH POC ABG pCO2 POC ABG pO2 Sodium Potassium Chloride Carbon Dioxide BUN Creatinine Glucose POC Glucose 108 H Lactic Acid Calcium Phosphorus Magnesium 1.60 L Direct Bilirubin AST ALT Alkaline Phosphatase Lactate Dehydrogenase Troponin T C-Reactive Protein Total Protein Albumin Prealbumin Triglycerides Cholesterol LDL Cholesterol Direct HDL Cholesterol Urine pH Urine WBC (Auto) Urine Creatinine Urine Total Protein Fluid Total Protein Vancomycin Trough Rheumatoid Factor Complement C4 Miscellaneous Test Crossmatch See Detail Allied health notes reviewed: RT
[2016-11-25] MEDS: ZOFRAN IV PRN ×2 (01:37→20:35)
[2016-11-25] MEDS: TYLENOL FEEDTUBE PRN (04:31)
[2016-11-25] MEDS: MORPHINE IV PRN ×2 (04:43→12:10)
[2016-11-25] MEDS: APRESOLINE IV PRN ×2 (04:44→12:12)
[2016-11-25] MEDS: LOPRESSOR FEEDTUBE SCH ×2 (04:54→11:00)
[2016-11-25 05:36] LABS: Red Blood Count 3.03 M/mm3 (3.65-5.03)
[2016-11-25 05:37] LABS: Basophils % (Auto) 0.2 % (0.0-1.8); Eosinophils % (Auto) 0.1 % (0.0-4.3); Hematocrit 25.3 % (30.3-42.9); Hemoglobin 8.6 gm/dl (10.1-14.3); Lymphocytes # (Auto) 1.9 K/mm3 (1.2-5.4); Lymphocytes % (Auto) 20.3 % (13.4-35.0); Mean Corpuscular HGB Conc 34 % (30-34); Mean Corpuscular Hemoglobin 28 pg (28-32); Mean Corpuscular Volume 84 fl (79-97); Monocytes # (Auto) 0.7 K/mm3 (0.0-0.8); Monocytes % (Auto) 8.1 % (0.0-7.3); Platelet Count 267 K/mm3 (140-440); Red Cell Distribution Width 16.2 % (13.2-15.2)
[2016-11-25 05:47] LABS: Albumin 1.5 g/dL (3.9-5); Calcium 8.2 mg/dL (8.4-10.2)
[2016-11-25] MEDS: HumuLIN R SUB-Q SCH ×4 (06:00→18:18)
[2016-11-25] MEDS: CATAPRES PO SCH (06:00)
--- NOTE | 2016-11-25 07:38 | Vascular Lab Report ---
RIGHT UPPER EXTREMITY VENOUS DUPLEX: REASON FOR EXAM: Swelling of the right upper extremity COMMENTS ON THE RIGHT: All arm veins visualized are freely compressible without evidence of internal echogenicity. The subclavian and internal jugular veins are free of thrombus. Flow is spontaneous and phasic throughout. Soft tissue changes are consistent with edema. COMMENTS ON THE LEFT: The subclavian and internal jugular veins are free of thrombus. IMPRESSION: No evidence of acute or chronic deep venous thrombosis in the right upper extremity.
--- NOTE | 2016-11-25 09:34 | XRay Report ---
Single view chest: Compared to . History: Followup of respiratory failure. Findings: Cardiomegaly with moderate bilateral pleural effusion. Stable large bore venous catheter and tracheostomy tube. Impression: Bilateral pleural effusion.
--- NOTE | 2016-11-25 09:36 | Progress Note ---
Assessment and Plan Acute Hypoxemic Respiratory Failure (now with exacerbation and back on MVS) Hypertension (unable to receive p.o. 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 better - HD/UF per nephrology (scheduled for today) - follow electrolytes and correct as necessary - continue TPN in short term till enteric fistula heals - continue GI & VTE prophylaxis - Continue flu & pneumovax per protocol ... remains critically ill on life sustaining interventions including MVS and at risk for further deterioration including ....35' CCT today without overlap Subjective Date of service: 11/25/16 Principal diagnosis: Acute resp failure on MVS; S/P Acute CVA; Acute Encephalopathy; JUANITA Interval history: Patient is being seen today for: acute hypoxemic respiratory failure s/p tracheostomy and on MVS Seen and examined at bedside; 24hour events reviewed; nursing and respiratory care staff consulted; no adverse overnight events reported to me; remains with elevated BP's; tachycardic also; AMS is persistent; on TPN; no emesis or overt aspiration Objective Vital Signs - 12hr 11/24/16 11/24/16 11/24/16 21:39 21:45 21:55 Temperature Pulse Rate 138 H 135 H 140 H Pulse Rate [ From Monitor] Respiratory 19 19 Rate Respiratory Rate [Left Hand ] Blood Pressure 172/95 172/95 166/96 O2 Sat by Pulse 100 99 Oximetry O2 Sat by Pulse Oximetry [ Assessment] 11/24/16 11/24/16 11/24/16 22:00 22:15 22:30 Temperature Pulse Rate 156 H 145 H 145 H Pulse Rate [ From Monitor] Respiratory 20 21 22 Rate Respiratory 21 Rate [Left Hand ] Blood Pressure 166/96 166/96 180/99 O2 Sat by Pulse 99 99 96 Oximetry O2 Sat by Pulse Oximetry [ Assessment] 11/24/16 11/24/16 11/24/16 22:33 22:35 22:45 Temperature Pulse Rate 147 H 144 H 161 H Pulse Rate [ From Monitor] Respiratory 22 Rate Respiratory Rate [Left Hand ] Blood Pressure 180/99 180/99 180/99 O2 Sat by Pulse 96 Oximetry O2 Sat by Pulse Oximetry [ Assessment] 11/24/16 11/24/16 11/24/16 22:52 23:00 23:15 Temperature Pulse Rate 148 H 152 H Pulse Rate [ From Monitor] Respiratory 22 23 24 Rate Respiratory Rate [Left Hand ] Blood Pressure 183/95 183/95 O2 Sat by Pulse 95 95 Oximetry O2 Sat by Pulse Oximetry [ Assessment] 11/24/16 11/24/16 11/24/16 23:22 23:23 23:30 Temperature 100.9 F H Pulse Rate 155 H Pulse Rate [ From Monitor] Respiratory 19 24 Rate Respiratory Rate [Left Hand ] Blood Pressure 177/103 O2 Sat by Pulse 95 Oximetry O2 Sat by Pulse Oximetry [ Assessment] 11/24/16 11/25/16 11/25/16 23:45 00:01 00:07 Temperature Pulse Rate 153 H 159 H Pulse Rate [ 144 H From Monitor] Respiratory 24 25 H Rate Respiratory Rate [Left Hand ] Blood Pressure 177/103 175/100 O2 Sat by Pulse 95 95 97 Oximetry O2 Sat by Pulse Oximetry [ Assessment] 11/25/16 11/25/16 11/25/16 00:15 00:30 00:45 Temperature Pulse Rate 160 H 159 H 154 H Pulse Rate [ From Monitor] Respiratory 26 H 25 H 24 Rate Respiratory Rate [Left Hand ] Blood Pressure 175/100 172/91 172/91 O2 Sat by Pulse 96 96 95 Oximetry O2 Sat by Pulse Oximetry [ Assessment] 11/25/16 11/25/16 11/25/16 00:53 00:57 01:01 Temperature Pulse Rate 128 H 156 H Pulse Rate [ From Monitor] Respiratory 25 H Rate Respiratory Rate [Left Hand ] Blood Pressure 172/91 174/90 O2 Sat by Pulse 100 96 Oximetry O2 Sat by Pulse 100 Oximetry [ Assessment] 11/25/16 11/25/16 11/25/16 01:15 01:31 01:45 Temperature Pulse Rate 152 H 151 H 153 H Pulse Rate [ From Monitor] Respiratory 24 23 25 H Rate Respiratory Rate [Left Hand ] Blood Pressure 174/90 174/94 174/94 O2 Sat by Pulse 97 96 97 Oximetry O2 Sat by Pulse Oximetry [ Assessment] 1011/25/16 11/25/16 02:00 02:15 02:31 Temperature Pulse Rate 152 H 155 H 157 H Pulse Rate [ From Monitor] Respiratory 24 25 H 26 H Rate Respiratory Rate [Left Hand ] Blood Pressure 174/94 171/94 167/95 O2 Sat by Pulse 97 97 97 Oximetry O2 Sat by Pulse Oximetry [ Assessment] 11/25/16 11/25/16 11/25/16 02:45 03:00 03:15 Temperature Pulse Rate 156 H 147 H 152 H Pulse Rate [ From Monitor] Respiratory 24 18 23 Rate Respiratory Rate [Left Hand ] Blood Pressure 167/95 136/76 136/76 O2 Sat by Pulse 97 99 99 Oximetry O2 Sat by Pulse Oximetry [ Assessment] 11/25/16 11/25/16 11/25/16 03:31 03:45 03:52 Temperature 102.9 F H Pulse Rate 154 H 150 H Pulse Rate [ From Monitor] Respiratory 26 H 19 Rate Respiratory Rate [Left Hand ] Blood Pressure 179/94 179/94 O2 Sat by Pulse 99 99 Oximetry O2 Sat by Pulse Oximetry [ Assessment] 11/25/16 11/25/16 11/25/16 04:00 04:15 04:30 Temperature Pulse Rate 149 H 148 H 152 H Pulse Rate [ From Monitor] Respiratory 22 19 19 Rate Respiratory Rate [Left Hand ] Blood Pressure 176/91 176/91 164/97 O2 Sat by Pulse 99 99 99 Oximetry O2 Sat by Pulse Oximetry [ Assessment] 11/25/16 11/25/16 11/25/16 04:31 04:40 04:43 Temperature Pulse Rate Pulse Rate [ 137 H From Monitor] Respiratory 19 22 Rate Respiratory Rate [Left Hand ] Blood Pressure O2 Sat by Pulse 99 Oximetry O2 Sat by Pulse Oximetry [ Assessment] 11/25/16 11/25/16 11/25/16 04:44 04:45 04:54 Temperature Pulse Rate 157 H 145 H 148 H Pulse Rate [ From Monitor] Respiratory 18 Rate Respiratory Rate [Left Hand ] Blood Pressure 167/95 164/97 136/76 O2 Sat by Pulse 99 Oximetry O2 Sat by Pulse Oximetry [ Assessment] 11/25/16 11/25/16 11/25/16 05:00 05:13 05:15 Temperature Pulse Rate 148 H 147 H Pulse Rate [ From Monitor] Respiratory 19 18 19 Rate Respiratory Rate [Left Hand ] Blood Pressure 141/83 141/83 O2 Sat by Pulse 99 99 Oximetry O2 Sat by Pulse Oximetry [ Assessment] 11/25/16 11/25/16 11/25/16 05:17 05:30 05:31 Temperature Pulse Rate 149 H 143 H Pulse Rate [ From Monitor] Respiratory 18 18 Rate Respiratory Rate [Left Hand ] Blood Pressure 141/83 124/69 O2 Sat by Pulse 99 99 Oximetry O2 Sat by Pulse Oximetry [ Assessment] 11/25/16 11/25/16 11/25/16 05:45 06:00 06:15 Temperature Pulse Rate 145 H 139 H 144 H Pulse Rate [ From Monitor] Respiratory 18 18 18 Rate Respiratory Rate [Left Hand ] Blood Pressure 124/69 114/68 114/68 O2 Sat by Pulse 100 99 99 Oximetry O2 Sat by Pulse Oximetry [ Assessment] 11/25/16 11/25/16 11/25/16 06:31 06:45 07:01 Temperature Pulse Rate 144 H 146 H 143 H Pulse Rate [ From Monitor] Respiratory 18 17 22 Rate Respiratory Rate [Left Hand ] Blood Pressure 137/79 114/68 140/94 O2 Sat by Pulse 100 100 Oximetry O2 Sat by Pulse Oximetry [ Assessment] 11/25/16 11/25/16 11/25/16 07:15 07:31 07:45 Temperature Pulse Rate 138 H 135 H 140 H Pulse Rate [ From Monitor] Respiratory 15 17 18 Rate Respiratory Rate [Left Hand ] Blood Pressure 140/94 140/94 140/94 O2 Sat by Pulse Oximetry O2 Sat by Pulse Oximetry [ Assessment] 11/25/16 11/25/16 08:00 08:15 Temperature 98.7 F Pulse Rate 140 H 137 H Pulse Rate [ 132 H From Monitor] Respiratory 18 18 Rate Respiratory Rate [Left Hand ] Blood Pressure 168/89 168/89 O2 Sat by Pulse Oximetry O2 Sat by Pulse Oximetry [ Assessment] Constitutional: no acute distress, other (eyes open; tracking movements) Eyes: non-icteric, other (tracheostomy tube in midline of neck) ENT: oropharynx moist, oropharyngeal exudate pre Neck: supple, no lymphadenopathy, no JVD Effort: mildly labored Ascultation: Bilateral: rales Cardiovascular: regular rate and rhythm Gastrointestinal: normoactive bowel sounds, soft, non-tender, non-distended, other (RLQ stomas with colostomy bags as well as LUQ over PEG stoma) Integumentary: other (normal skin tugor; no tenting) Extremities: no cyanosis, pulses normal, edema Neurologic: pupils equal and round, unable to assess, other (encephalopathic) Psychiatric: other (unable to assess) CBC and BMP: 11/25/16 04:42 11/25/16 04:42 ABG, PT/INR, D-dimer: ABG POC ABG pH 7.493 (7.35-7.45) H 11/23/16 03:44 POC ABG pCO2 29.5 (35-45) L 11/23/16 03:44 POC ABG pO2 49 (80-105) L 11/23/16 03:44 POC ABG HCO3 22.7 11/23/16 03:44 POC ABG Total CO2 24 11/23/16 03:44 POC ABG O2 Sat 88 11/23/16 03:44 PT/INR, D-dimer PT 16.8 Sec. (12.2-14.9) H 11/17/16 03:20 INR 1.37 (0.87-1.13) H 11/17/16 03:20 Abnormal lab findings: Abnormal Labs 09/03/16 09/03/16 09/03/16 12:12 15:07 16:20 WBC RBC Hgb Hct MCV MCH MCHC RDW Plt Count Lymph % (Auto) Smyth % (Auto) Lymph # Smyth # Baso # Seg Neutrophils % Seg Neuts % (Manual) Lymphocytes % (Manual) Monocytes % (Manual) Eosinophils % (Manual) Basophils % (Manual) Nucleated RBC % Seg Neutrophils # Seg Neutrophils # Man Lymphocytes # (Manual) Monocytes # (Manual) Eosinophils # (Manual) PT INR Fibrinogen dRVVT Confirm Interp Factor V Activity POC ABG pH 7.452 H POC ABG pCO2 POC ABG pO2 Sodium Potassium Chloride Carbon Dioxide BUN Creatinine Glucose POC Glucose 178 H Lactic Acid Calcium Phosphorus 2.20 L Magnesium 1.60 L Direct Bilirubin AST ALT Alkaline Phosphatase Lactate Dehydrogenase Troponin T C-Reactive Protein Total Protein Albumin Prealbumin Triglycerides Cholesterol LDL Cholesterol Direct HDL Cholesterol Urine pH Urine WBC (Auto) Urine Creatinine Urine Total Protein Fluid Total Protein Vancomycin Trough Rheumatoid Factor Complement C4 Miscellaneous Test Crossmatch 09/03/16 09/03/16 09/03/16 17:57 17:58 23:50 WBC RBC Hgb Hct MCV MCH MCHC RDW Plt Count Lymph % (Auto) Smyth % (Auto) Lymph # Smyth # Baso # Seg Neutrophils % Seg Neuts % (Manual) Lymphocytes % (Manual) Monocytes % (Manual) Eosinophils % (Manual) Basophils % (Manual) Nucleated RBC % Seg Neutrophils # Seg Neutrophils # Man Lymphocytes # (Manual) Monocytes # (Manual) Eosinophils # (Manual) PT INR Fibrinogen dRVVT Confirm Interp Factor V Activity POC ABG pH POC ABG pCO2 POC ABG pO2 Sodium Potassium Chloride Carbon Dioxide BUN Creatinine Glucose POC Glucose 162 H 145 H Lactic Acid Calcium Phosphorus 2.30 L Magnesium Direct Bilirubin AST ALT Alkaline Phosphatase Lactate Dehydrogenase Troponin T C-Reactive Protein Total Protein Albumin Prealbumin Triglycerides Cholesterol LDL Cholesterol Direct HDL Cholesterol Urine pH Urine WBC (Auto) Urine Creatinine Urine Total Protein Fluid Total Protein Vancomycin Trough Rheumatoid Factor Complement C4 Miscellaneous Test Crossmatch 09/04/16 09/04/16 09/04/16 03:31 03:31 05:42 WBC RBC Hgb 9.7 L D Hct MCV 72 L MCH 23 L MCHC RDW 17.5 H Plt Count Lymph % (Auto) 11.1 L Smyth % (Auto) Lymph # Smyth # Baso # Seg Neutrophils % 84.3 H Seg Neuts % (Manual) Lymphocytes % (Manual) Monocytes % (Manual) Eosinophils % (Manual) Basophils % (Manual) Nucleated RBC % Seg Neutrophils # 8.9 H Seg Neutrophils # Man Lymphocytes # (Manual) Monocytes # (Manual) Eosinophils # (Manual) PT INR Fibrinogen dRVVT Confirm Interp Factor V Activity POC ABG pH POC ABG pCO2 POC ABG pO2 Sodium 135 L Potassium 2.9 L* Chloride 97.2 L Carbon Dioxide 19 L BUN Creatinine 1.7 H Glucose 170 H POC Glucose 152 H Lactic Acid Calcium Phosphorus Magnesium Direct Bilirubin AST ALT Alkaline Phosphatase Lactate Dehydrogenase Troponin T C-Reactive Protein Total Protein Albumin Prealbumin Triglycerides 160 H Cholesterol LDL Cholesterol Direct HDL Cholesterol 31 L Urine pH Urine WBC (Auto) Urine Creatinine Urine Total Protein Fluid Total Protein Vancomycin Trough Rheumatoid Factor Complement C4 Miscellaneous Test Crossmatch 09/04/16 09/04/16 09/04/16 11:34 17:46 23:29 WBC RBC Hgb Hct MCV MCH MCHC RDW Plt Count Lymph % (Auto) Smyth % (Auto) Lymph # Smyth # Baso # Seg Neutrophils % Seg Neuts % (Manual) Lymphocytes % (Manual) Monocytes % (Manual) Eosinophils % (Manual) Basophils % (Manual) Nucleated RBC % Seg Neutrophils # Seg Neutrophils # Man Lymphocytes # (Manual) Monocytes # (Manual) Eosinophils # (Manual) PT INR Fibrinogen dRVVT Confirm Interp Factor V Activity POC ABG pH POC ABG pCO2 POC ABG pO2 Sodium Potassium Chloride Carbon Dioxide BUN Creatinine Glucose POC Glucose 165 H 210 H 139 H Lactic Acid Calcium Phosphorus Magnesium Direct Bilirubin AST ALT Alkaline Phosphatase Lactate Dehydrogenase Troponin T C-Reactive Protein Total Protein Albumin Prealbumin Triglycerides Cholesterol LDL Cholesterol Direct HDL Cholesterol Urine pH Urine WBC (Auto) Urine Creatinine Urine Total Protein Fluid Total Protein Vancomycin Trough Rheumatoid Factor Complement C4 Miscellaneous Test Crossmatch 09/05/16 09/05/16 09/05/16 04:05 04:05 05:38 WBC RBC Hgb Hct MCV 76 L D MCH 23 L MCHC RDW 17.8 H Plt Count Lymph % (Auto) Smyth % (Auto) Lymph # Smyth # Baso # Seg Neutrophils % Seg Neuts % (Manual) Lymphocytes % (Manual) Monocytes % (Manual) Eosinophils % (Manual) Basophils % (Manual) Nucleated RBC % Seg Neutrophils # Seg Neutrophils # Man Lymphocytes # (Manual) Monocytes # (Manual) Eosinophils # (Manual) PT INR Fibrinogen dRVVT Confirm Interp Factor V Activity POC ABG pH POC ABG pCO2 POC ABG pO2 Sodium 134 L Potassium Chloride Carbon Dioxide 18 L BUN Creatinine 1.8 H Glucose 192 H POC Glucose 175 H Lactic Acid Calcium Phosphorus Magnesium Direct Bilirubin AST ALT Alkaline Phosphatase Lactate Dehydrogenase Troponin T C-Reactive Protein Total Protein Albumin Prealbumin Triglycerides Cholesterol LDL Cholesterol Direct HDL Cholesterol Urine pH Urine WBC (Auto) Urine Creatinine Urine Total Protein Fluid Total Protein Vancomycin Trough Rheumatoid Factor Complement C4 Miscellaneous Test Crossmatch 09/05/16 09/05/16 09/05/16 11:38 17:48 23:22 WBC RBC Hgb Hct MCV MCH MCHC RDW Plt Count Lymph % (Auto) Smyth % (Auto) Lymph # S[place]th # Baso # Seg Neutrophils % Seg Neuts % (Manual) Lymphocytes % (Manual) Monocytes % (Manual) Eosinophils % (Manual) Basophils % (Manual) Nucleated RBC % Seg Neutrophils # Seg Neutrophils # Man Lymphocytes # (Manual) Monocytes # (Manual) Eosinophils # (Manual) PT INR Fibrinogen dRVVT Confirm Interp Factor V Activity POC ABG pH POC ABG pCO2 POC ABG pO2 Sodium Potassium Chloride Carbon Dioxide BUN Creatinine Glucose POC Glucose 164 H 186 H 195 H Lactic Acid Calcium Phosphorus Magnesium Direct Bilirubin AST ALT Alkaline Phosphatase Lactate Dehydrogenase Troponin T C-Reactive Protein Total Protein Albumin Prealbumin Triglycerides Cholesterol LDL Cholesterol Direct HDL Cholesterol Urine pH Urine WBC (Auto) Urine Creatinine Urine Total Protein Fluid Total Protein Vancomycin Trough Rheumatoid Factor Complement C4 Miscellaneous Test Crossmatch 09/06/16 09/06/16 09/06/16 04:12 05:59 07:32 WBC RBC Hgb Hct MCV MCH MCHC RDW Plt Count Lymph % (Auto) Smyth % (Auto) Lymph # S[place]th # Baso # Seg Neutrophils % Seg Neuts % (Manual) Lymphocytes % (Manual) Monocytes % (Manual) Eosinophils % (Manual) Basophils % (Manual) Nucleated RBC % Seg Neutrophils # Seg Neutrophils # Man Lymphocytes # (Manual) Monocytes # (Manual) Eosinophils # (Manual) PT INR Fibrinogen dRVVT Confirm Interp Factor V Activity POC ABG pH 7.514 H POC ABG pCO2 29.1 L POC ABG pO2 72 L Sodium 133 L Potassium 3.4 L Chloride 94.9 L Carbon Dioxide 19 L BUN 30 H Creatinine 2.1 H Glucose 139 H POC Glucose 146 H Lactic Acid Calcium Phosphorus Magnesium Direct Bilirubin AST ALT Alkaline Phosphatase Lactate Dehydrogenase Troponin T C-Reactive Protein Total Protein Albumin Prealbumin Triglycerides Cholesterol LDL Cholesterol Direct HDL Cholesterol Urine pH Urine WBC (Auto) Urine Creatinine Urine Total Protein Fluid Total Protein Vancomycin Trough Rheumatoid Factor Complement C4 Miscellaneous Test Crossmatch 09/06/16 09/06/16 09/06/16 11:57 17:58 19:02 WBC RBC Hgb Hct MCV MCH MCHC RDW Plt Count Lymph % (Auto) Smyth % (Auto) Lymph # S[place]th # Baso # Seg Neutrophils % Seg Neuts % (Manual) Lymphocytes % (Manual) Monocytes % (Manual) Eosinophils % (Manual) Basophils % (Manual) Nucleated RBC % Seg Neutrophils # Seg Neutrophils # Man Lymphocytes # (Manual) Monocytes # (Manual) Eosinophils # (Manual) PT INR Fibrinogen dRVVT Confirm Interp Factor V Activity POC ABG pH 7.465 H POC ABG pCO2 32.0 L POC ABG pO2 Sodium Potassium Chloride Carbon Dioxide BUN Creatinine Glucose POC Glucose 165 H 160 H Lactic Acid Calcium Phosphorus Magnesium Direct Bilirubin AST ALT Alkaline Phosphatase Lactate Dehydrogenase Troponin T C-Reactive Protein Total Protein Albumin Prealbumin Triglycerides Cholesterol LDL Cholesterol Direct HDL Cholesterol Urine pH Urine WBC (Auto) Urine Creatinine Urine Total Protein Fluid Total Protein Vancomycin Trough Rheumatoid Factor Complement C4 Miscellaneous Test Crossmatch 09/06/16 09/07/16 09/07/16 23:45 02:47 02:47 WBC RBC Hgb Hct MCV MCH MCHC RDW Plt Count Lymph % (Auto) Smyth % (Auto) Lymph # S[place]th # Baso # Seg Neutrophils % Seg Neuts % (Manual) Lymphocytes % (Manual) Monocytes % (Manual) Eosinophils % (Manual) Basophils % (Manual) Nucleated RBC % Seg Neutrophils # Seg Neutrophils # Man Lymphocytes # (Manual) Monocytes # (Manual) Eosinophils # (Manual) PT INR Fibrinogen dRVVT Confirm Interp Factor V Activity POC ABG pH POC ABG pCO2 POC ABG pO2 Sodium Potassium Chloride Carbon Dioxide BUN Creatinine Glucose POC Glucose 204 H Lactic Acid Calcium Phosphorus Magnesium Direct Bilirubin AST ALT Alkaline Phosphatase Lactate Dehydrogenase Troponin T C-Reactive Protein Total Protein Albumin Prealbumin Triglycerides Cholesterol LDL Cholesterol Direct HDL Cholesterol Urine pH Urine WBC (Auto) 68.0 H Urine Creatinine 106.1 H Urine Total Protein Fluid Total Protein Vancomycin Trough Rheumatoid Factor Complement C4 Miscellaneous Test Crossmatch 09/07/16 09/07/16 09/07/16 04:50 06:19 06:39 WBC RBC Hgb Hct MCV MCH MCHC RDW Plt Count Lymph % (Auto) Smyth % (Auto) Lymph # S[place]th # Baso # Seg Neutrophils % Seg Neuts % (Manual) Lymphocytes % (Manual) Monocytes % (Manual) Eosinophils % (Manual) Basophils % (Manual) Nucleated RBC % Seg Neutrophils # Seg Neutrophils # Man Lymphocytes # (Manual) Monocytes # (Manual) Eosinophils # (Manual) PT INR Fibrinogen dRVVT Confirm Interp Factor V Activity POC ABG pH 7.457 H POC ABG pCO2 32.1 L POC ABG pO2 76 L Sodium 132 L Potassium Chloride 94.7 L Carbon Dioxide BUN 53 H Creatinine 2.9 H Glucose 151 H POC Glucose 149 H Lactic Acid Calcium Phosphorus Magnesium Direct Bilirubin AST ALT Alkaline Phosphatase Lactate Dehydrogenase Troponin T C-Reactive Protein Total Protein Albumin Prealbumin Triglycerides Cholesterol LDL Cholesterol Direct HDL Cholesterol Urine pH Urine WBC (Auto) Urine Creatinine Urine Total Protein Fluid Total Protein Vancomycin Trough Rheumatoid Factor Complement C4 Miscellaneous Test Crossmatch 09/07/16 09/07/16 09/07/16 09:20 11:43 11:43 WBC 19.4 H RBC Hgb 8.3 L Hct 26.4 L D MCV 72 L D MCH 22 L MCHC RDW 17.9 H Plt Count Lymph % (Auto) 8.5 L Smyth % (Auto) Lymph # Smyth # 1.0 H Baso # Seg Neutrophils % 85.8 H Seg Neuts % (Manual) Lymphocytes % (Manual) Monocytes % (Manual) Eosinophils % (Manual) Basophils % (Manual) Nucleated RBC % Seg Neutrophils # 16.6 H Seg Neutrophils # Man Lymphocytes # (Manual) Monocytes # (Manual) Eosinophils # (Manual) PT INR Fibrinogen dRVVT Confirm Interp Factor V Activity POC ABG pH POC ABG pCO2 POC ABG pO2 Sodium 134 L Potassium Chloride 97.2 L Carbon Dioxide 20 L BUN 58 H Creatinine 2.9 H Glucose 147 H POC Glucose Lactic Acid Calcium Phosphorus 2.40 L Magnesium 2.40 H Direct Bilirubin AST ALT Alkaline Phosphatase Lactate Dehydrogenase Troponin T C-Reactive Protein Total Protein 5.8 L Albumin 2.2 L Prealbumin Triglycerides Cholesterol LDL Cholesterol Direct HDL Cholesterol Urine pH Urine WBC (Auto) Urine Creatinine Urine Total Protein Fluid Total Protein Vancomycin Trough Rheumatoid Factor Complement C4 58 H Miscellaneous Test Crossmatch 09/07/16 09/07/16 09/07/16 11:50 16:00 17:31 WBC RBC Hgb Hct MCV MCH MCHC RDW Plt Count Lymph % (Auto) Smyth % (Auto) Lymph # Smyth # Baso # Seg Neutrophils % Seg Neuts % (Manual) Lymphocytes % (Manual) Monocytes % (Manual) Eosinophils % (Manual) Basophils % (Manual) Nucleated RBC % Seg Neutrophils # Seg Neutrophils # Man Lymphocytes # (Manual) Monocytes # (Manual) Eosinophils # (Manual) PT INR Fibrinogen dRVVT Confirm Interp Factor V Activity POC ABG pH POC ABG pCO2 POC ABG pO2 158 H Sodium Potassium Chloride Carbon Dioxide BUN Creatinine Glucose POC Glucose 175 H Lactic Acid Calcium Phosphorus Magnesium Direct Bilirubin AST ALT Alkaline Phosphatase Lactate Dehydrogenase Troponin T C-Reactive Protein Total Protein Albumin Prealbumin Triglycerides Cholesterol LDL Cholesterol Direct HDL Cholesterol Urine pH Urine WBC (Auto) Urine Creatinine 66.3 H Urine Total Protein Fluid Total Protein Vancomycin Trough Rheumatoid Factor Complement C4 Miscellaneous Test Crossmatch 09/07/16 09/08/16 09/08/16 23:50 05:46 06:18 WBC 17.8 H RBC 3.58 L Hgb 8.1 L Hct 25.5 L MCV 71 L MCH 23 L MCHC RDW 18.4 H Plt Count Lymph % (Auto) Smyth % (Auto) Lymph # S[place]th # Baso # Seg Neutrophils % Seg Neuts % (Manual) 92.0 H Lymphocytes % (Manual) 6.0 L Monocytes % (Manual) Eosinophils % (Manual) Basophils % (Manual) Nucleated RBC % Seg Neutrophils # Seg Neutrophils # Man 16.4 H Lymphocytes # (Manual) 1.1 L Monocytes # (Manual) Eosinophils # (Manual) PT INR Fibrinogen dRVVT Confirm Interp Factor V Activity POC ABG pH POC ABG pCO2 34.3 L POC ABG pO2 71 L Sodium Potassium Chloride Carbon Dioxide BUN Creatinine Glucose POC Glucose 216 H Lactic Acid Calcium Phosphorus Magnesium Direct Bilirubin AST ALT Alkaline Phosphatase Lactate Dehydrogenase Troponin T C-Reactive Protein Total Protein Albumin Prealbumin Triglycerides Cholesterol LDL Cholesterol Direct HDL Cholesterol Urine pH Urine WBC (Auto) Urine Creatinine Urine Total Protein Fluid Total Protein Vancomycin Trough Rheumatoid Factor Complement C4 Miscellaneous Test Crossmatch 09/08/16 09/08/16 09/08/16 06:18 06:51 10:55 WBC RBC Hgb Hct MCV MCH MCHC RDW Plt Count Lymph % (Auto) Smyth % (Auto) Lymph # S[place]th # Baso # Seg Neutrophils % Seg Neuts % (Manual) Lymphocytes % (Manual) Monocytes % (Manual) Eosinophils % (Manual) Basophils % (Manual) Nucleated RBC % Seg Neutrophils # Seg Neutrophils # Man Lymphocytes # (Manual) Monocytes # (Manual) Eosinophils # (Manual) PT INR Fibrinogen dRVVT Confirm Interp Factor V Activity POC ABG pH POC ABG pCO2 POC ABG pO2 Sodium 133 L Potassium Chloride 96.9 L Carbon Dioxide 20 L BUN 63 H Creatinine 2.7 H Glucose 195 H POC Glucose 204 H 169 H Lactic Acid Calcium Phosphorus Magnesium Direct Bilirubin AST ALT Alkaline Phosphatase Lactate Dehydrogenase Troponin T C-Reactive Protein Total Protein Albumin Prealbumin Triglycerides Cholesterol LDL Cholesterol Direct HDL Cholesterol Urine pH Urine WBC (Auto) Urine Creatinine Urine Total Protein Fluid Total Protein Vancomycin Trough Rheumatoid Factor Complement C4 Miscellaneous Test Crossmatch 09/08/16 09/08/16 09/08/16 11:48 11:48 11:48 WBC RBC Hgb Hct MCV MCH MCHC RDW Plt Count Lymph % (Auto) Smyth % (Auto) Lymph # S[place]th # Baso # Seg Neutrophils % Seg Neuts % (Manual) Lymphocytes % (Manual) Monocytes % (Manual) Eosinophils % (Manual) Basophils % (Manual) Nucleated RBC % Seg Neutrophils # Seg Neutrophils # Man Lymphocytes # (Manual) Monocytes # (Manual) Eosinophils # (Manual) PT INR Fibrinogen 750 H dRVVT Confirm Interp Factor V Activity POC ABG pH POC ABG pCO2 POC ABG pO2 Sodium Potassium Chloride Carbon Dioxide BUN Creatinine Glucose POC Glucose Lactic Acid Calcium Phosphorus Magnesium Direct Bilirubin AST ALT Alkaline Phosphatase Lactate Dehydrogenase Troponin T C-Reactive Protein 15.70 H Total Protein Albumin Prealbumin Triglycerides Cholesterol LDL Cholesterol Direct HDL Cholesterol Urine pH Urine WBC (Auto) Urine Creatinine Urine Total Protein Fluid Total Protein Vancomycin Trough Rheumatoid Factor 24 H Complement C4 Miscellaneous Test Crossmatch 09/08/16 09/08/16 09/09/16 15:35 18:25 00:24 WBC RBC Hgb Hct MCV MCH MCHC RDW Plt Count Lymph % (Auto) Smyth % (Auto) Lymph # Smyth # Baso # Seg Neutrophils % Seg Neuts % (Manual) Lymphocytes % (Manual) Monocytes % (Manual) Eosinophils % (Manual) Basophils % (Manual) Nucleated RBC % Seg Neutrophils # Seg Neutrophils # Man Lymphocytes # (Manual) Monocytes # (Manual) Eosinophils # (Manual) PT INR Fibrinogen dRVVT Confirm Interp Factor V Activity 182 H POC ABG pH POC ABG pCO2 POC ABG pO2 Sodium Potassium Chloride Carbon Dioxide BUN Creatinine Glucose POC Glucose 184 H 216 H Lactic Acid Calcium Phosphorus Magnesium Direct Bilirubin AST ALT Alkaline Phosphatase Lactate Dehydrogenase Troponin T C-Reactive Protein Total Protein Albumin Prealbumin Triglycerides Cholesterol LDL Cholesterol Direct HDL Cholesterol Urine pH Urine WBC (Auto) Urine Creatinine Urine Total Protein Fluid Total Protein Vancomycin Trough Rheumatoid Factor Complement C4 Miscellaneous Test Crossmatch 09/09/16 09/09/16 09/09/16 03:00 03:00 04:04 WBC 27.9 H RBC Hgb 8.7 L Hct 28.1 L MCV 72 L MCH 22 L MCHC RDW 18.4 H Plt Count 485 H Lymph % (Auto) [place]th % (Auto) Lymph # [place] # Baso # Seg Neutrophils % Seg Neuts % (Manual) 77.0 H Lymphocytes % (Manual) 9.0 L Monocytes % (Manual) Eosinophils % (Manual) Basophils % (Manual) Nucleated RBC % Seg Neutrophils # Seg Neutrophils # Man 21.5 H Lymphocytes # (Manual) Monocytes # (Manual) 2.0 H Eosinophils # (Manual) PT INR Fibrinogen dRVVT Confirm Interp Factor V Activity POC ABG pH POC ABG pCO2 POC ABG pO2 121 H Sodium 135 L Potassium Chloride 96.3 L Carbon Dioxide 21 L BUN 83 H Creatinine 3.0 H Glucose 135 H POC Glucose Lactic Acid Calcium Phosphorus Magnesium Direct Bilirubin AST ALT Alkaline Phosphatase Lactate Dehydrogenase Troponin T C-Reactive Protein Total Protein Albumin Prealbumin Triglycerides Cholesterol LDL Cholesterol Direct HDL Cholesterol Urine pH Urine WBC (Auto) Urine Creatinine Urine Total Protein Fluid Total Protein Vancomycin Trough Rheumatoid Factor Complement C4 Miscellaneous Test Crossmatch 09/09/16 09/09/16 09/09/16 05:41 11:55 14:13 WBC RBC Hgb Hct MCV MCH MCHC RDW Plt Count Lymph % (Auto) [place]th % (Auto) Lymph # [place] # Baso # Seg Neutrophils % Seg Neuts % (Manual) Lymphocytes % (Manual) Monocytes % (Manual) Eosinophils % (Manual) Basophils % (Manual) Nucleated RBC % Seg Neutrophils # Seg Neutrophils # Man Lymphocytes # (Manual) Monocytes # (Manual) Eosinophils # (Manual) PT INR Fibrinogen dRVVT Confirm Interp Factor V Activity POC ABG pH POC ABG pCO2 POC ABG pO2 Sodium Potassium Chloride Carbon Dioxide BUN Creatinine Glucose POC Glucose 155 H 186 H Lactic Acid Calcium Phosphorus Magnesium Direct Bilirubin AST ALT Alkaline Phosphatase Lactate Dehydrogenase Troponin T C-Reactive Protein Total Protein Albumin Prealbumin Triglycerides Cholesterol LDL Cholesterol Direct HDL Cholesterol Urine pH Urine WBC (Auto) 25.0 H Urine Creatinine Urine Total Protein Fluid Total Protein Vancomycin Trough Rheumatoid Factor Complement C4 Miscellaneous Test Crossmatch 09/09/16 09/09/16 09/10/16 17:33 23:13 05:09 WBC RBC Hgb Hct MCV MCH MCHC RDW Plt Count Lymph % (Auto) [place]th % (Auto) Lymph # [place] # Baso # Seg Neutrophils % Seg Neuts % (Manual) Lymphocytes % (Manual) Monocytes % (Manual) Eosinophils % (Manual) Basophils % (Manual) Nucleated RBC % Seg Neutrophils # Seg Neutrophils # Man Lymphocytes # (Manual) Monocytes # (Manual) Eosinophils # (Manual) PT INR Fibrinogen dRVVT Confirm Interp Factor V Activity POC ABG pH POC ABG pCO2 POC ABG pO2 74 L Sodium Potassium Chloride Carbon Dioxide BUN Creatinine Glucose POC Glucose 211 H 215 H Lactic Acid Calcium Phosphorus Magnesium Direct Bilirubin AST ALT Alkaline Phosphatase Lactate Dehydrogenase Troponin T C-Reactive Protein Total Protein Albumin Prealbumin Triglycerides Cholesterol LDL Cholesterol Direct HDL Cholesterol Urine pH Urine WBC (Auto) Urine Creatinine Urine Total Protein Fluid Total Protein Vancomycin Trough Rheumatoid Factor Complement C4 Miscellaneous Test Crossmatch 09/10/16 09/10/16 09/10/16 05:17 05:17 11:31 WBC 15.8 H RBC 3.25 L Hgb 7.3 L Hct 22.9 L MCV 71 L MCH 23 L MCHC RDW 18.4 H Plt Count Lymph % (Auto) [place] % (Auto) Lymph # [place] # Baso # Seg Neutrophils % Seg Neuts % (Manual) 91.0 H Lymphocytes % (Manual) 4.0 L Monocytes % (Manual) Eosinophils % (Manual) Basophils % (Manual) Nucleated RBC % Seg Neutrophils # Seg Neutrophils # Man 14.4 H Lymphocytes # (Manual) 0.6 L Monocytes # (Manual) Eosinophils # (Manual) PT INR Fibrinogen dRVVT Confirm Interp Factor V Activity POC ABG pH POC ABG pCO2 POC ABG pO2 Sodium Potassium Chloride Carbon Dioxide 21 L BUN 93 H Creatinine 2.9 H Glucose 146 H POC Glucose 188 H Lactic Acid Calcium 8.1 L Phosphorus Magnesium Direct Bilirubin AST ALT Alkaline Phosphatase Lactate Dehydrogenase Troponin T C-Reactive Protein Total Protein Albumin Prealbumin Triglycerides Cholesterol LDL Cholesterol Direct HDL Cholesterol Urine pH Urine WBC (Auto) Urine Creatinine Urine Total Protein Fluid Total Protein Vancomycin Trough Rheumatoid Factor Complement C4 Miscellaneous Test Crossmatch 09/10/16 09/10/16 09/10/16 13:17 17:20 23:32 WBC RBC Hgb Hct MCV MCH MCHC RDW Plt Count Lymph % (Auto) [place]th % (Auto) Lymph # [place] # Baso # Seg Neutrophils % Seg Neuts % (Manual) Lymphocytes % (Manual) Monocytes % (Manual) Eosinophils % (Manual) Basophils % (Manual) Nucleated RBC % Seg Neutrophils # Seg Neutrophils # Man Lymphocytes # (Manual) Monocytes # (Manual) Eosinophils # (Manual) PT INR Fibrinogen dRVVT Confirm Interp Factor V Activity POC ABG pH POC ABG pCO2 POC ABG pO2 Sodium Potassium Chloride Carbon Dioxide BUN Creatinine Glucose POC Glucose 199 H 186 H Lactic Acid Calcium Phosphorus Magnesium Direct Bilirubin AST ALT Alkaline Phosphatase Lactate Dehydrogenase Troponin T C-Reactive Protein Total Protein Albumin Prealbumin Triglycerides Cholesterol LDL Cholesterol Direct HDL Cholesterol Urine pH Urine WBC (Auto) Urine Creatinine Urine Total Protein Fluid Total Protein Vancomycin Trough Rheumatoid Factor Complement C4 Miscellaneous Test Crossmatch See Detail 09/11/16 09/11/16 09/11/16 05:10 05:10 05:17 WBC 28.4 H RBC Hgb 9.2 L Hct 29.3 L D MCV 73 L MCH 23 L MCHC RDW 18.9 H Plt Count 452 H Lymph % (Auto) [place] % (Auto) Lymph # [place] # Baso # Seg Neutrophils % Seg Neuts % (Manual) 89.5 H Lymphocytes % (Manual) 2.0 L Monocytes % (Manual) Eosinophils % (Manual) Basophils % (Manual) Nucleated RBC % Seg Neutrophils # Seg Neutrophils # Man 25.4 H Lymphocytes # (Manual) 0.6 L Monocytes # (Manual) 1.3 H Eosinophils # (Manual) PT INR Fibrinogen dRVVT Confirm Interp Factor V Activity POC ABG pH POC ABG pCO2 POC ABG pO2 Sodium 136 L Potassium Chloride Carbon Dioxide 18 L BUN 107 H Creatinine 2.6 H Glucose 187 H POC Glucose 230 H Lactic Acid Calcium 8.3 L Phosphorus Magnesium Direct Bilirubin AST ALT Alkaline Phosphatase Lactate Dehydrogenase Troponin T C-Reactive Protein Total Protein Albumin Prealbumin Triglycerides Cholesterol LDL Cholesterol Direct HDL Cholesterol Urine pH Urine WBC (Auto) Urine Creatinine Urine Total Protein Fluid Total Protein Vancomycin Trough Rheumatoid Factor Complement C4 Miscellaneous Test Crossmatch 09/11/16 09/11/16 09/11/16 05:55 12:02 17:32 WBC RBC Hgb Hct MCV MCH MCHC RDW Plt Count Lymph % (Auto) [place]th % (Auto) Lymph # [place] # Baso # Seg Neutrophils % Seg Neuts % (Manual) Lymphocytes % (Manual) Monocytes % (Manual) Eosinophils % (Manual) Basophils % (Manual) Nucleated RBC % Seg Neutrophils # Seg Neutrophils # Man Lymphocytes # (Manual) Monocytes # (Manual) Eosinophils # (Manual) PT INR Fibrinogen dRVVT Confirm Interp Factor V Activity POC ABG pH POC ABG pCO2 33.8 L POC ABG pO2 Sodium Potassium Chloride Carbon Dioxide BUN Creatinine Glucose POC Glucose 191 H 239 H Lactic Acid Calcium Phosphorus Magnesium Direct Bilirubin AST ALT Alkaline Phosphatase Lactate Dehydrogenase Troponin T C-Reactive Protein Total Protein Albumin Prealbumin Triglycerides Cholesterol LDL Cholesterol Direct HDL Cholesterol Urine pH Urine WBC (Auto) Urine Creatinine Urine Total Protein Fluid Total Protein Vancomycin Trough Rheumatoid Factor Complement C4 Miscellaneous Test Crossmatch 09/11/16 09/12/16 09/12/16 23:52 05:09 05:32 WBC RBC Hgb Hct MCV MCH MCHC RDW Plt Count Lymph % (Auto) [place] % (Auto) Lymph # [place] # Baso # Seg Neutrophils % Seg Neuts % (Manual) Lymphocytes % (Manual) Monocytes % (Manual) Eosinophils % (Manual) Basophils % (Manual) Nucleated RBC % Seg Neutrophils # Seg Neutrophils # Man Lymphocytes # (Manual) Monocytes # (Manual) Eosinophils # (Manual) PT INR Fibrinogen dRVVT Confirm Interp Factor V Activity POC ABG pH POC ABG pCO2 34.6 L POC ABG pO2 Sodium Potassium Chloride Carbon Dioxide BUN Creatinine Glucose POC Glucose 265 H 184 H Lactic Acid Calcium Phosphorus Magnesium Direct Bilirubin AST ALT Alkaline Phosphatase Lactate Dehydrogenase Troponin T C-Reactive Protein Total Protein Albumin Prealbumin Triglycerides Cholesterol LDL Cholesterol Direct HDL Cholesterol Urine pH Urine WBC (Auto) Urine Creatinine Urine Total Protein Fluid Total Protein Vancomycin Trough Rheumatoid Factor Complement C4 Miscellaneous Test Crossmatch 09/12/16 09/12/16 09/12/16 06:45 06:45 07:22 WBC 31.7 H RBC 3.54 L Hgb 8.3 L Hct 25.9 L MCV 73 L MCH 23 L MCHC RDW 18.9 H Plt Count Lymph % (Auto) [place] % (Auto) Lymph # [place] # Baso # Seg Neutrophils % Seg Neuts % (Manual) 88.5 H Lymphocytes % (Manual) 4.5 L Monocytes % (Manual) Eosinophils % (Manual) Basophils % (Manual) Nucleated RBC % Seg Neutrophils # Seg Neutrophils # Man 28.1 H Lymphocytes # (Manual) Monocytes # (Manual) 1.0 H Eosinophils # (Manual) PT INR Fibrinogen dRVVT Confirm Interp Factor V Activity POC ABG pH POC ABG pCO2 POC ABG pO2 Sodium Potassium Chloride Carbon Dioxide 20 L BUN 115 H Creatinine 2.7 H Glucose 165 H POC Glucose Lactic Acid Calcium 8.0 L Phosphorus Magnesium Direct Bilirubin AST ALT Alkaline Phosphatase Lactate Dehydrogenase Troponin T C-Reactive Protein Total Protein Albumin Prealbumin Triglycerides 217 H Cholesterol LDL Cholesterol Direct HDL Cholesterol Urine pH Urine WBC (Auto) Urine Creatinine Urine Total Protein Fluid Total Protein Vancomycin Trough Rheumatoid Factor Complement C4 Miscellaneous Test Crossmatch 09/12/16 09/12/16 09/12/16 07:22 09:59 12:21 WBC RBC Hgb Hct MCV MCH MCHC RDW Plt Count Lymph % (Auto) [place] % (Auto) Lymph # [place] # Baso # Seg Neutrophils % Seg Neuts % (Manual) Lymphocytes % (Manual) Monocytes % (Manual) Eosinophils % (Manual) Basophils % (Manual) Nucleated RBC % Seg Neutrophils # Seg Neutrophils # Man Lymphocytes # (Manual) Monocytes # (Manual) Eosinophils # (Manual) PT INR Fibrinogen dRVVT Confirm Interp Positive H Factor V Activity POC ABG pH POC ABG pCO2 POC ABG pO2 Sodium Potassium Chloride Carbon Dioxide BUN Creatinine Glucose POC Glucose 224 H Lactic Acid Calcium Phosphorus Magnesium Direct Bilirubin AST ALT Alkaline Phosphatase Lactate Dehydrogenase Troponin T C-Reactive Protein 1.70 H Total Protein Albumin Prealbumin Triglycerides Cholesterol LDL Cholesterol Direct HDL Cholesterol Urine pH Urine WBC (Auto) Urine Creatinine Urine Total Protein Fluid Total Protein Vancomycin Trough Rheumatoid Factor Complement C4 Miscellaneous Test Crossmatch 09/12/16 09/12/16 09/13/16 16:51 23:28 04:00 WBC 45.0 H* RBC Hgb 9.4 L Hct MCV 75 L MCH 23 L MCHC RDW 19.0 H Plt Count 470 H Lymph % (Auto) [place] % (Auto) Lymph # [place] # Baso # Seg Neutrophils % Seg Neuts % (Manual) 89.0 H Lymphocytes % (Manual) 5.0 L Monocytes % (Manual) Eosinophils % (Manual) Basophils % (Manual) Nucleated RBC % Seg Neutrophils # Seg Neutrophils # Man 40.1 H Lymphocytes # (Manual) Monocytes # (Manual) Eosinophils # (Manual) PT INR Fibrinogen dRVVT Confirm Interp Factor V Activity POC ABG pH POC ABG pCO2 POC ABG pO2 Sodium Potassium Chloride Carbon Dioxide BUN Creatinine Glucose POC Glucose 169 H 150 H Lactic Acid Calcium Phosphorus Magnesium Direct Bilirubin AST ALT Alkaline Phosphatase Lactate Dehydrogenase Troponin T C-Reactive Protein Total Protein Albumin Prealbumin Triglycerides Cholesterol LDL Cholesterol Direct HDL Cholesterol Urine pH Urine WBC (Auto) Urine Creatinine Urine Total Protein Fluid Total Protein Vancomycin Trough Rheumatoid Factor Complement C4 Miscellaneous Test Crossmatch 09/13/16 09/13/16 09/13/16 04:00 11:26 17:31 WBC RBC Hgb Hct MCV MCH MCHC RDW Plt Count Lymph % (Auto) [place]th % (Auto) Lymph # [place] # Baso # Seg Neutrophils % Seg Neuts % (Manual) Lymphocytes % (Manual) Monocytes % (Manual) Eosinophils % (Manual) Basophils % (Manual) Nucleated RBC % Seg Neutrophils # Seg Neutrophils # Man Lymphocytes # (Manual) Monocytes # (Manual) Eosinophils # (Manual) PT INR Fibrinogen dRVVT Confirm Interp Factor V Activity POC ABG pH POC ABG pCO2 POC ABG pO2 Sodium Potassium Chloride Carbon Dioxide 20 L BUN 116 H Creatinine 3.0 H Glucose 172 H POC Glucose 140 H 183 H Lactic Acid Calcium Phosphorus Magnesium Direct Bilirubin AST ALT Alkaline Phosphatase Lactate Dehydrogenase Troponin T C-Reactive Protein Total Protein 6.2 L Albumin 2.9 L Prealbumin Triglycerides Cholesterol LDL Cholesterol Direct HDL Cholesterol Urine pH Urine WBC (Auto) Urine Creatinine Urine Total Protein Fluid Total Protein Vancomycin Trough Rheumatoid Factor Complement C4 Miscellaneous Test Crossmatch 09/13/16 09/14/16 09/14/16 23:23 04:06 04:07 WBC 29.4 H RBC Hgb 8.9 L Hct 27.3 L MCV 75 L MCH 24 L MCHC RDW 19.1 H Plt Count Lymph % (Auto) [place] % (Auto) Lymph # [place] # Baso # Seg Neutrophils % Seg Neuts % (Manual) 84.0 H Lymphocytes % (Manual) 6.0 L Monocytes % (Manual) 9.0 H Eosinophils % (Manual) Basophils % (Manual) Nucleated RBC % Seg Neutrophils # Seg Neutrophils # Man 24.7 H Lymphocytes # (Manual) Monocytes # (Manual) 2.6 H Eosinophils # (Manual) PT INR Fibrinogen dRVVT Confirm Interp Factor V Activity POC ABG pH 7.342 L POC ABG pCO2 POC ABG pO2 116 H Sodium Potassium Chloride Carbon Dioxide BUN Creatinine Glucose POC Glucose 154 H Lactic Acid Calcium Phosphorus Magnesium Direct Bilirubin AST ALT Alkaline Phosphatase Lactate Dehydrogenase Troponin T C-Reactive Protein Total Protein Albumin Prealbumin Triglycerides Cholesterol LDL Cholesterol Direct HDL Cholesterol Urine pH Urine WBC (Auto) Urine Creatinine Urine Total Protein Fluid Total Protein Vancomycin Trough Rheumatoid Factor Complement C4 Miscellaneous Test Crossmatch 09/14/16 09/14/16 09/14/16 04:07 05:29 12:19 WBC RBC Hgb Hct MCV MCH MCHC RDW Plt Count Lymph % (Auto) [place] % (Auto) Lymph # [place] # Baso # Seg Neutrophils % Seg Neuts % (Manual) Lymphocytes % (Manual) Monocytes % (Manual) Eosinophils % (Manual) Basophils % (Manual) Nucleated RBC % Seg Neutrophils # Seg Neutrophils # Man Lymphocytes # (Manual) Monocytes # (Manual) Eosinophils # (Manual) PT INR Fibrinogen dRVVT Confirm Interp Factor V Activity POC ABG pH POC ABG pCO2 POC ABG pO2 Sodium 136 L Potassium Chloride Carbon Dioxide 18 L BUN 121 H Creatinine 2.8 H Glucose 214 H POC Glucose 239 H 181 H Lactic Acid Calcium Phosphorus Magnesium Direct Bilirubin AST ALT Alkaline Phosphatase Lactate Dehydrogenase Troponin T C-Reactive Protein Total Protein Albumin Prealbumin Triglycerides Cholesterol LDL Cholesterol Direct HDL Cholesterol Urine pH Urine WBC (Auto) Urine Creatinine Urine Total Protein Fluid Total Protein Vancomycin Trough Rheumatoid Factor Complement C4 Miscellaneous Test Crossmatch 09/14/16 09/14/16 09/15/16 18:12 23:37 05:00 WBC 26.1 H RBC 3.05 L Hgb 7.2 L Hct 22.9 L MCV 75 L MCH 24 L MCHC RDW 19.0 H Plt Count Lymph % (Auto) [place] % (Auto) Lymph # [place] # Baso # Seg Neutrophils % Seg Neuts % (Manual) Lymphocytes % (Manual) Monocytes % (Manual) Eosinophils % (Manual) Basophils % (Manual) Nucleated RBC % Seg Neutrophils # Seg Neutrophils # Man Lymphocytes # (Manual) Monocytes # (Manual) Eosinophils # (Manual) PT INR Fibrinogen dRVVT Confirm Interp Factor V Activity POC ABG pH POC ABG pCO2 POC ABG pO2 Sodium Potassium Chloride Carbon Dioxide BUN Creatinine Glucose POC Glucose 266 H 154 H Lactic Acid Calcium Phosphorus Magnesium Direct Bilirubin AST ALT Alkaline Phosphatase Lactate Dehydrogenase Troponin T C-Reactive Protein Total Protein Albumin Prealbumin Triglycerides Cholesterol LDL Cholesterol Direct HDL Cholesterol Urine pH Urine WBC (Auto) Urine Creatinine Urine Total Protein Fluid Total Protein Vancomycin Trough Rheumatoid Factor Complement C4 Miscellaneous Test Crossmatch 09/15/16 09/15/16 09/15/16 05:00 05:17 12:45 WBC RBC Hgb Hct MCV MCH MCHC RDW Plt Count Lymph % (Auto) [place] % (Auto) Lymph # [place] # Baso # Seg Neutrophils % Seg Neuts % (Manual) Lymphocytes % (Manual) Monocytes % (Manual) Eosinophils % (Manual) Basophils % (Manual) Nucleated RBC % Seg Neutrophils # Seg Neutrophils # Man Lymphocytes # (Manual) Monocytes # (Manual) Eosinophils # (Manual) PT INR Fibrinogen dRVVT Confirm Interp Factor V Activity POC ABG pH POC ABG pCO2 POC ABG pO2 Sodium Potassium 5.2 H Chloride Carbon Dioxide 18 L BUN 139 H Creatinine 3.7 H Glucose 227 H POC Glucose 226 H 244 H Lactic Acid Calcium 8.3 L Phosphorus Magnesium Direct Bilirubin AST ALT Alkaline Phosphatase Lactate Dehydrogenase Troponin T C-Reactive Protein Total Protein Albumin Prealbumin Triglycerides Cholesterol LDL Cholesterol Direct HDL Cholesterol Urine pH Urine WBC (Auto) Urine Creatinine Urine Total Protein Fluid Total Protein Vancomycin Trough Rheumatoid Factor Complement C4 Miscellaneous Test Crossmatch 09/15/16 09/15/16 09/15/16 14:32 17:33 23:35 WBC RBC Hgb Hct MCV MCH MCHC RDW Plt Count Lymph % (Auto) [place] % (Auto) Lymph # [place] # Baso # Seg Neutrophils % Seg Neuts % (Manual) Lymphocytes % (Manual) Monocytes % (Manual) Eosinophils % (Manual) Basophils % (Manual) Nucleated RBC % Seg Neutrophils # Seg Neutrophils # Man Lymphocytes # (Manual) Monocytes # (Manual) Eosinophils # (Manual) PT INR Fibrinogen dRVVT Confirm Interp Factor V Activity POC ABG pH POC ABG pCO2 27.7 L POC ABG pO2 120 H Sodium Potassium Chloride Carbon Dioxide BUN Creatinine Glucose POC Glucose 232 H 167 H Lactic Acid Calcium Phosphorus Magnesium Direct Bilirubin AST ALT Alkaline Phosphatase Lactate Dehydrogenase Troponin T C-Reactive Protein Total Protein Albumin Prealbumin Triglycerides Cholesterol LDL Cholesterol Direct HDL Cholesterol Urine pH Urine WBC (Auto) Urine Creatinine Urine Total Protein Fluid Total Protein Vancomycin Trough Rheumatoid Factor Complement C4 Miscellaneous Test Crossmatch 09/16/16 09/16/16 09/16/16 03:58 10:27 10:27 WBC 19.0 H RBC 2.77 L Hgb 6.5 L Hct 20.9 L MCV 76 L MCH 23 L MCHC RDW 19.3 H Plt Count Lymph % (Auto) 11.0 L [place] % (Auto) Lymph # [place] # 1.1 H Baso # Seg Neutrophils % 82.5 H Seg Neuts % (Manual) Lymphocytes % (Manual) Monocytes % (Manual) Eosinophils % (Manual) Basophils % (Manual) Nucleated RBC % Seg Neutrophils # 15.7 H Seg Neutrophils # Man Lymphocytes # (Manual) Monocytes # (Manual) Eosinophils # (Manual) PT INR Fibrinogen dRVVT Confirm Interp Factor V Activity POC ABG pH POC ABG pCO2 POC ABG pO2 Sodium Potassium Chloride 109.3 H Carbon Dioxide 18 L BUN 139 H Creatinine 4.1 H Glucose 144 H POC Glucose 146 H Lactic Acid Calcium 8.1 L Phosphorus Magnesium Direct Bilirubin AST ALT Alkaline Phosphatase Lactate Dehydrogenase Troponin T C-Reactive Protein Total Protein Albumin Prealbumin Triglycerides Cholesterol LDL Cholesterol Direct HDL Cholesterol Urine pH Urine WBC (Auto) Urine Creatinine Urine Total Protein Fluid Total Protein Vancomycin Trough Rheumatoid Factor Complement C4 Miscellaneous Test Crossmatch 09/16/16 09/16/16 09/16/16 12:04 12:10 13:55 WBC RBC Hgb Hct MCV MCH MCHC RDW Plt Count Lymph % (Auto) [place] % (Auto) Lymph # [place] # Baso # Seg Neutrophils % Seg Neuts % (Manual) Lymphocytes % (Manual) Monocytes % (Manual) Eosinophils % (Manual) Basophils % (Manual) Nucleated RBC % Seg Neutrophils # Seg Neutrophils # Man Lymphocytes # (Manual) Monocytes # (Manual) Eosinophils # (Manual) PT INR Fibrinogen dRVVT Confirm Interp Factor V Activity POC ABG pH POC ABG pCO2 32.9 L POC ABG pO2 Sodium Potassium Chloride Carbon Dioxide BUN Creatinine Glucose POC Glucose 185 H Lactic Acid Calcium Phosphorus Magnesium Direct Bilirubin AST ALT Alkaline Phosphatase Lactate Dehydrogenase Troponin T C-Reactive Protein Total Protein Albumin Prealbumin Triglycerides Cholesterol LDL Cholesterol Direct HDL Cholesterol Urine pH Urine WBC (Auto) Urine Creatinine Urine Total Protein Fluid Total Protein Vancomycin Trough Rheumatoid Factor Complement C4 Miscellaneous Test Crossmatch See Detail 09/16/16 09/16/16 09/16/16 17:55 19:19 23:48 WBC RBC Hgb Hct MCV MCH MCHC RDW Plt Count Lymph % (Auto) [place] % (Auto) Lymph # [place] # Baso # Seg Neutrophils % Seg Neuts % (Manual) Lymphocytes % (Manual) Monocytes % (Manual) Eosinophils % (Manual) Basophils % (Manual) Nucleated RBC % Seg Neutrophils # Seg Neutrophils # Man Lymphocytes # (Manual) Monocytes # (Manual) Eosinophils # (Manual) PT INR Fibrinogen dRVVT Confirm Interp Factor V Activity POC ABG pH POC ABG pCO2 POC ABG pO2 Sodium Potassium Chloride Carbon Dioxide BUN Creatinine Glucose POC Glucose 222 H 107 H Lactic Acid Calcium Phosphorus Magnesium Direct Bilirubin AST ALT Alkaline Phosphatase Lactate Dehydrogenase Troponin T C-Reactive Protein Total Protein Albumin Prealbumin Triglycerides Cholesterol LDL Cholesterol Direct HDL Cholesterol Urine pH Urine WBC (Auto) Urine Creatinine 47.4 H Urine Total Protein 16 H Fluid Total Protein Vancomycin Trough Rheumatoid Factor Complement C4 Miscellaneous Test Crossmatch 09/17/16 09/17/16 09/17/16 03:45 03:45 04:55 WBC 19.6 H RBC 3.41 L Hgb 8.5 L Hct 26.7 L MCV 78 L MCH 25 L MCHC RDW 19.9 H Plt Count Lymph % (Auto) 9.3 L [place] % (Auto) Lymph # [place] # 1.2 H Baso # Seg Neutrophils % 83.9 H Seg Neuts % (Manual) Lymphocytes % (Manual) Monocytes % (Manual) Eosinophils % (Manual) Basophils % (Manual) Nucleated RBC % Seg Neutrophils # 16.4 H Seg Neutrophils # Man Lymphocytes # (Manual) Monocytes # (Manual) Eosinophils # (Manual) PT INR Fibrinogen dRVVT Confirm Interp Factor V Activity POC ABG pH POC ABG pCO2 POC ABG pO2 Sodium 146 H Potassium 5.1 H Chloride 110.9 H Carbon Dioxide 16 L BUN 146 H Creatinine 4.0 H Glucose 108 H POC Glucose 133 H Lactic Acid Calcium Phosphorus Magnesium 3.00 H Direct Bilirubin AST ALT Alkaline Phosphatase Lactate Dehydrogenase Troponin T C-Reactive Protein Total Protein Albumin Prealbumin Triglycerides Cholesterol LDL Cholesterol Direct HDL Cholesterol Urine pH Urine WBC (Auto) Urine Creatinine Urine Total Protein Fluid Total Protein Vancomycin Trough Rheumatoid Factor Complement C4 Miscellaneous Test Crossmatch 09/17/16 09/17/16 09/17/16 11:15 17:33 23:47 WBC RBC Hgb Hct MCV MCH MCHC RDW Plt Count Lymph % (Auto) [place] % (Auto) Lymph # [place] # Baso # Seg Neutrophils % Seg Neuts % (Manual) Lymphocytes % (Manual) Monocytes % (Manual) Eosinophils % (Manual) Basophils % (Manual) Nucleated RBC % Seg Neutrophils # Seg Neutrophils # Man Lymphocytes # (Manual) Monocytes # (Manual) Eosinophils # (Manual) PT INR Fibrinogen dRVVT Confirm Interp Factor V Activity POC ABG pH POC ABG pCO2 POC ABG pO2 Sodium Potassium Chloride Carbon Dioxide BUN Creatinine Glucose POC Glucose 176 H 246 H 148 H Lactic Acid Calcium Phosphorus Magnesium Direct Bilirubin AST ALT Alkaline Phosphatase Lactate Dehydrogenase Troponin T C-Reactive Protein Total Protein Albumin Prealbumin Triglycerides Cholesterol LDL Cholesterol Direct HDL Cholesterol Urine pH Urine WBC (Auto) Urine Creatinine Urine Total Protein Fluid Total Protein Vancomycin Trough Rheumatoid Factor Complement C4 Miscellaneous Test Crossmatch 09/18/16 09/18/16 09/18/16 05:33 08:31 08:31 WBC 18.0 H RBC 3.17 L Hgb 9.0 L Hct 25.7 L MCV MCH MCHC 35 H RDW 20.4 H Plt Count Lymph % (Auto) [place] % (Auto) Lymph # [place] # Baso # Seg Neutrophils % Seg Neuts % (Manual) Lymphocytes % (Manual) Monocytes % (Manual) Eosinophils % (Manual) Basophils % (Manual) Nucleated RBC % Seg Neutrophils # Seg Neutrophils # Man Lymphocytes # (Manual) Monocytes # (Manual) Eosinophils # (Manual) PT INR Fibrinogen dRVVT Confirm Interp Factor V Activity POC ABG pH POC ABG pCO2 POC ABG pO2 Sodium Potassium Chloride Carbon Dioxide 15 L BUN 124 H Creatinine 3.8 H Glucose POC Glucose 120 H Lactic Acid Calcium 8.1 L Phosphorus Magnesium Direct Bilirubin AST ALT Alkaline Phosphatase Lactate Dehydrogenase Troponin T C-Reactive Protein Total Protein Albumin Prealbumin Triglycerides Cholesterol LDL Cholesterol Direct HDL Cholesterol Urine pH Urine WBC (Auto) Urine Creatinine Urine Total Protein Fluid Total Protein Vancomycin Trough Rheumatoid Factor Complement C4 Miscellaneous Test Crossmatch 09/18/16 09/18/16 09/18/16 12:03 15:34 17:50 WBC RBC Hgb Hct MCV MCH MCHC RDW Plt Count Lymph % (Auto) [place]th % (Auto) Lymph # [place] # Baso # Seg Neutrophils % Seg Neuts % (Manual) Lymphocytes % (Manual) Monocytes % (Manual) Eosinophils % (Manual) Basophils % (Manual) Nucleated RBC % Seg Neutrophils # Seg Neutrophils # Man Lymphocytes # (Manual) Monocytes # (Manual) Eosinophils # (Manual) PT INR Fibrinogen dRVVT Confirm Interp Factor V Activity POC ABG pH POC ABG pCO2 25.7 L POC ABG pO2 66 L Sodium Potassium Chloride Carbon Dioxide BUN Creatinine Glucose POC Glucose 156 H 220 H Lactic Acid Calcium Phosphorus Magnesium Direct Bilirubin AST ALT Alkaline Phosphatase Lactate Dehydrogenase Troponin T C-Reactive Protein Total Protein Albumin Prealbumin Triglycerides Cholesterol LDL Cholesterol Direct HDL Cholesterol Urine pH Urine WBC (Auto) Urine Creatinine Urine Total Protein Fluid Total Protein Vancomycin Trough Rheumatoid Factor Complement C4 Miscellaneous Test Crossmatch 09/19/16 09/19/16 09/19/16 06:21 09:50 09:50 WBC 17.1 H RBC 3.49 L Hgb 9.0 L Hct 28.1 L MCV MCH 26 L MCHC RDW 20.8 H Plt Count Lymph % (Auto) 11.5 L Smyth % (Auto) 7.5 H Lymph # Smyth # 1.3 H Baso # Seg Neutrophils % 79.8 H Seg Neuts % (Manual) Lymphocytes % (Manual) Monocytes % (Manual) Eosinophils % (Manual) Basophils % (Manual) Nucleated RBC % Seg Neutrophils # 13.7 H Seg Neutrophils # Man Lymphocytes # (Manual) Monocytes # (Manual) Eosinophils # (Manual) PT INR Fibrinogen dRVVT Confirm Interp Factor V Activity POC ABG pH POC ABG pCO2 POC ABG pO2 Sodium Potassium Chloride 108.6 H Carbon Dioxide 15 L BUN 125 H Creatinine 4.1 H Glucose 124 H POC Glucose 119 H Lactic Acid Calcium Phosphorus Magnesium Direct Bilirubin AST ALT Alkaline Phosphatase Lactate Dehydrogenase Troponin T C-Reactive Protein Total Protein Albumin Prealbumin Triglycerides Cholesterol LDL Cholesterol Direct HDL Cholesterol Urine pH Urine WBC (Auto) Urine Creatinine Urine Total Protein Fluid Total Protein Vancomycin Trough Rheumatoid Factor Complement C4 Miscellaneous Test Crossmatch 09/19/16 09/19/16 09/19/16 11:25 17:53 23:36 WBC RBC Hgb Hct MCV MCH MCHC RDW Plt Count Lymph % (Auto) Smyth % (Auto) Lymph # S[place]th # Baso # Seg Neutrophils % Seg Neuts % (Manual) Lymphocytes % (Manual) Monocytes % (Manual) Eosinophils % (Manual) Basophils % (Manual) Nucleated RBC % Seg Neutrophils # Seg Neutrophils # Man Lymphocytes # (Manual) Monocytes # (Manual) Eosinophils # (Manual) PT INR Fibrinogen dRVVT Confirm Interp Factor V Activity POC ABG pH POC ABG pCO2 POC ABG pO2 Sodium Potassium Chloride Carbon Dioxide BUN Creatinine Glucose POC Glucose 160 H 245 H 121 H Lactic Acid Calcium Phosphorus Magnesium Direct Bilirubin AST ALT Alkaline Phosphatase Lactate Dehydrogenase Troponin T C-Reactive Protein Total Protein Albumin Prealbumin Triglycerides Cholesterol LDL Cholesterol Direct HDL Cholesterol Urine pH Urine WBC (Auto) Urine Creatinine Urine Total Protein Fluid Total Protein Vancomycin Trough Rheumatoid Factor Complement C4 Miscellaneous Test Crossmatch 09/20/16 09/20/16 09/20/16 04:10 04:10 04:10 WBC 17.0 H RBC 3.21 L Hgb 8.2 L Hct 25.5 L MCV MCH 26 L MCHC RDW 20.9 H Plt Count Lymph % (Auto) Smyth % (Auto) Lymph # [place] # Baso # Seg Neutrophils % Seg Neuts % (Manual) Lymphocytes % (Manual) Monocytes % (Manual) Eosinophils % (Manual) Basophils % (Manual) Nucleated RBC % Seg Neutrophils # Seg Neutrophils # Man Lymphocytes # (Manual) Monocytes # (Manual) Eosinophils # (Manual) PT INR Fibrinogen dRVVT Confirm Interp Factor V Activity POC ABG pH POC ABG pCO2 POC ABG pO2 Sodium Potassium Chloride 111.0 H Carbon Dioxide 16 L BUN 129 H Creatinine 3.7 H Glucose 115 H POC Glucose Lactic Acid Calcium 8.2 L Phosphorus Magnesium Direct Bilirubin AST ALT Alkaline Phosphatase Lactate Dehydrogenase Troponin T C-Reactive Protein Total Protein Albumin Prealbumin Triglycerides 243 H Cholesterol LDL Cholesterol Direct HDL Cholesterol Urine pH Urine WBC (Auto) Urine Creatinine Urine Total Protein Fluid Total Protein Vancomycin Trough Rheumatoid Factor Complement C4 Miscellaneous Test Crossmatch 09/20/16 09/20/16 09/20/16 05:40 11:52 16:50 WBC RBC Hgb Hct MCV MCH MCHC RDW Plt Count Lymph % (Auto) Smyth % (Auto) Lymph # [place]th # Baso # Seg Neutrophils % Seg Neuts % (Manual) Lymphocytes % (Manual) Monocytes % (Manual) Eosinophils % (Manual) Basophils % (Manual) Nucleated RBC % Seg Neutrophils # Seg Neutrophils # Man Lymphocytes # (Manual) Monocytes # (Manual) Eosinophils # (Manual) PT INR Fibrinogen dRVVT Confirm Interp Factor V Activity POC ABG pH POC ABG pCO2 POC ABG pO2 Sodium Potassium Chloride Carbon Dioxide BUN Creatinine Glucose POC Glucose 131 H 183 H 236 H Lactic Acid Calcium Phosphorus Magnesium Direct Bilirubin AST ALT Alkaline Phosphatase Lactate Dehydrogenase Troponin T C-Reactive Protein Total Protein Albumin Prealbumin Triglycerides Cholesterol LDL Cholesterol Direct HDL Cholesterol Urine pH Urine WBC (Auto) Urine Creatinine Urine Total Protein Fluid Total Protein Vancomycin Trough Rheumatoid Factor Complement C4 Miscellaneous Test Crossmatch 09/20/16 09/21/16 09/21/16 23:51 03:30 04:44 WBC RBC Hgb Hct MCV MCH MCHC RDW Plt Count Lymph % (Auto) Smyth % (Auto) Lymph # [place]th # Baso # Seg Neutrophils % Seg Neuts % (Manual) Lymphocytes % (Manual) Monocytes % (Manual) Eosinophils % (Manual) Basophils % (Manual) Nucleated RBC % Seg Neutrophils # Seg Neutrophils # Man Lymphocytes # (Manual) Monocytes # (Manual) Eosinophils # (Manual) PT INR Fibrinogen dRVVT Confirm Interp Factor V Activity POC ABG pH POC ABG pCO2 POC ABG pO2 Sodium Potassium Chloride Carbon Dioxide BUN Creatinine Glucose POC Glucose 114 H 141 H Lactic Acid Calcium Phosphorus Magnesium 2.70 H Direct Bilirubin AST ALT Alkaline Phosphatase Lactate Dehydrogenase Troponin T C-Reactive Protein Total Protein Albumin Prealbumin Triglycerides Cholesterol LDL Cholesterol Direct HDL Cholesterol Urine pH Urine WBC (Auto) Urine Creatinine Urine Total Protein Fluid Total Protein Vancomycin Trough Rheumatoid Factor Complement C4 Miscellaneous Test Crossmatch 09/21/16 09/21/16 09/21/16 07:45 07:45 10:01 WBC 13.8 H RBC 2.94 L Hgb 7.5 L Hct 23.5 L MCV MCH 26 L MCHC RDW 21.2 H Plt Count Lymph % (Auto) 6.9 L S[place]th % (Auto) 9.4 H Lymph # 0.9 L Smyth # 1.3 H Baso # Seg Neutrophils % 83.2 H Seg Neuts % (Manual) Lymphocytes % (Manual) Monocytes % (Manual) Eosinophils % (Manual) Basophils % (Manual) Nucleated RBC % Seg Neutrophils # 11.5 H Seg Neutrophils # Man Lymphocytes # (Manual) Monocytes # (Manual) Eosinophils # (Manual) PT INR Fibrinogen dRVVT Confirm Interp Factor V Activity POC ABG pH 7.308 L POC ABG pCO2 31.9 L POC ABG pO2 148 H Sodium 147 H Potassium Chloride 114.2 H Carbon Dioxide 15 L BUN 120 H Creatinine 3.9 H Glucose 156 H POC Glucose Lactic Acid Calcium 8.2 L Phosphorus Magnesium Direct Bilirubin AST ALT Alkaline Phosphatase Lactate Dehydrogenase Troponin T C-Reactive Protein Total Protein Albumin Prealbumin Triglycerides Cholesterol LDL Cholesterol Direct HDL Cholesterol Urine pH Urine WBC (Auto) Urine Creatinine Urine Total Protein Fluid Total Protein Vancomycin Trough Rheumatoid Factor Complement C4 Miscellaneous Test Crossmatch 09/21/16 09/21/16 09/21/16 12:00 12:03 13:00 WBC RBC Hgb Hct MCV MCH MCHC RDW Plt Count Lymph % (Auto) Smyth % (Auto) Lymph # [place]th # Baso # Seg Neutrophils % Seg Neuts % (Manual) Lymphocytes % (Manual) Monocytes % (Manual) Eosinophils % (Manual) Basophils % (Manual) Nucleated RBC % Seg Neutrophils # Seg Neutrophils # Man Lymphocytes # (Manual) Monocytes # (Manual) Eosinophils # (Manual) PT INR Fibrinogen dRVVT Confirm Interp Factor V Activity POC ABG pH POC ABG pCO2 POC ABG pO2 Sodium Potassium Chloride Carbon Dioxide BUN Creatinine Glucose POC Glucose 163 H Lactic Acid Calcium Phosphorus Magnesium Direct Bilirubin AST ALT Alkaline Phosphatase Lactate Dehydrogenase Troponin T C-Reactive Protein Total Protein Albumin Prealbumin Triglycerides Cholesterol LDL Cholesterol Direct HDL Cholesterol Urine pH Urine WBC (Auto) Urine Creatinine 54.8 H Urine Total Protein Fluid Total Protein Vancomycin Trough 2.3 L Rheumatoid Factor Complement C4 Miscellaneous Test Crossmatch 09/21/16 09/21/16 09/22/16 16:51 23:17 06:27 WBC RBC Hgb Hct MCV MCH MCHC RDW Plt Count Lymph % (Auto) Smyth % (Auto) Lymph # [place]th # Baso # Seg Neutrophils % Seg Neuts % (Manual) Lymphocytes % (Manual) Monocytes % (Manual) Eosinophils % (Manual) Basophils % (Manual) Nucleated RBC % Seg Neutrophils # Seg Neutrophils # Man Lymphocytes # (Manual) Monocytes # (Manual) Eosinophils # (Manual) PT INR Fibrinogen dRVVT Confirm Interp Factor V Activity POC ABG pH POC ABG pCO2 POC ABG pO2 Sodium Potassium Chloride Carbon Dioxide BUN Creatinine Glucose POC Glucose 206 H 114 H 115 H Lactic Acid Calcium Phosphorus Magnesium Direct Bilirubin AST ALT Alkaline Phosphatase Lactate Dehydrogenase Troponin T C-Reactive Protein Total Protein Albumin Prealbumin Triglycerides Cholesterol LDL Cholesterol Direct HDL Cholesterol Urine pH Urine WBC (Auto) Urine Creatinine Urine Total Protein Fluid Total Protein Vancomycin Trough Rheumatoid Factor Complement C4 Miscellaneous Test Crossmatch 09/22/16 09/22/16 09/22/16 07:50 07:50 12:00 WBC 17.8 H RBC 3.04 L Hgb 8.0 L Hct 24.7 L MCV MCH 26 L MCHC RDW 21.6 H Plt Count Lymph % (Auto) S[place]th % (Auto) Lymph # [place] # Baso # Seg Neutrophils % Seg Neuts % (Manual) Lymphocytes % (Manual) Monocytes % (Manual) Eosinophils % (Manual) Basophils % (Manual) Nucleated RBC % Seg Neutrophils # Seg Neutrophils # Man Lymphocytes # (Manual) Monocytes # (Manual) Eosinophils # (Manual) PT INR Fibrinogen dRVVT Confirm Interp Factor V Activity POC ABG pH POC ABG pCO2 POC ABG pO2 Sodium 150 H Potassium Chloride 118.2 H Carbon Dioxide 14 L BUN 111 H Creatinine 3.7 H Glucose 157 H POC Glucose 183 H Lactic Acid Calcium Phosphorus Magnesium Direct Bilirubin AST ALT Alkaline Phosphatase Lactate Dehydrogenase Troponin T C-Reactive Protein Total Protein Albumin Prealbumin Triglycerides Cholesterol LDL Cholesterol Direct HDL Cholesterol Urine pH Urine WBC (Auto) Urine Creatinine Urine Total Protein Fluid Total Protein Vancomycin Trough Rheumatoid Factor Complement C4 Miscellaneous Test Crossmatch 09/22/16 09/22/16 09/23/16 17:29 23:10 05:00 WBC 19.2 H RBC 3.13 L Hgb 8.0 L Hct 25.2 L MCV MCH 26 L MCHC RDW 22.1 H Plt Count Lymph % (Auto) Smyth % (Auto) Lymph # [place] # Baso # Seg Neutrophils % Seg Neuts % (Manual) 92.0 H Lymphocytes % (Manual) 3.0 L Monocytes % (Manual) Eosinophils % (Manual) Basophils % (Manual) Nucleated RBC % Seg Neutrophils # Seg Neutrophils # Man 17.7 H Lymphocytes # (Manual) 0.6 L Monocytes # (Manual) Eosinophils # (Manual) PT INR Fibrinogen dRVVT Confirm Interp Factor V Activity POC ABG pH POC ABG pCO2 POC ABG pO2 Sodium Potassium Chloride Carbon Dioxide BUN Creatinine Glucose POC Glucose 197 H 169 H Lactic Acid Calcium Phosphorus Magnesium Direct Bilirubin AST ALT Alkaline Phosphatase Lactate Dehydrogenase Troponin T C-Reactive Protein Total Protein Albumin Prealbumin Triglycerides Cholesterol LDL Cholesterol Direct HDL Cholesterol Urine pH Urine WBC (Auto) Urine Creatinine Urine Total Protein Fluid Total Protein Vancomycin Trough Rheumatoid Factor Complement C4 Miscellaneous Test Crossmatch 09/23/16 09/23/16 09/23/16 05:00 05:00 05:10 WBC RBC Hgb Hct MCV MCH MCHC RDW Plt Count Lymph % (Auto) Smyth % (Auto) Lymph # [place] # Baso # Seg Neutrophils % Seg Neuts % (Manual) Lymphocytes % (Manual) Monocytes % (Manual) Eosinophils % (Manual) Basophils % (Manual) Nucleated RBC % Seg Neutrophils # Seg Neutrophils # Man Lymphocytes # (Manual) Monocytes # (Manual) Eosinophils # (Manual) PT INR Fibrinogen dRVVT Confirm Interp Factor V Activity POC ABG pH POC ABG pCO2 POC ABG pO2 Sodium 147 H Potassium 3.2 L Chloride 115.7 H Carbon Dioxide 13 L BUN 111 H Creatinine 3.8 H Glucose 194 H POC Glucose 188 H Lactic Acid Calcium 7.3 L D Phosphorus Magnesium Direct Bilirubin AST ALT Alkaline Phosphatase Lactate Dehydrogenase Troponin T C-Reactive Protein 3.20 H Total Protein Albumin Prealbumin Triglycerides Cholesterol LDL Cholesterol Direct HDL Cholesterol Urine pH Urine WBC (Auto) Urine Creatinine Urine Total Protein Fluid Total Protein Vancomycin Trough Rheumatoid Factor Complement C4 Miscellaneous Test Crossmatch 09/23/16 09/23/16 09/23/16 11:37 12:29 18:01 WBC RBC Hgb Hct MCV MCH MCHC RDW Plt Count Lymph % (Auto) Smyth % (Auto) Lymph # [place] # Baso # Seg Neutrophils % Seg Neuts % (Manual) Lymphocytes % (Manual) Monocytes % (Manual) Eosinophils % (Manual) Basophils % (Manual) Nucleated RBC % Seg Neutrophils # Seg Neutrophils # Man Lymphocytes # (Manual) Monocytes # (Manual) Eosinophils # (Manual) PT INR Fibrinogen dRVVT Confirm Interp Factor V Activity POC ABG pH POC ABG pCO2 18.9 L POC ABG pO2 143 H Sodium Potassium Chloride Carbon Dioxide BUN Creatinine Glucose POC Glucose 153 H 108 H Lactic Acid Calcium Phosphorus Magnesium Direct Bilirubin AST ALT Alkaline Phosphatase Lactate Dehydrogenase Troponin T C-Reactive Protein Total Protein Albumin Prealbumin Triglycerides Cholesterol LDL Cholesterol Direct HDL Cholesterol Urine pH Urine WBC (Auto) Urine Creatinine Urine Total Protein Fluid Total Protein Vancomycin Trough Rheumatoid Factor Complement C4 Miscellaneous Test Crossmatch 09/23/16 09/23/16 09/24/16 21:19 23:43 05:16 WBC RBC Hgb Hct MCV MCH MCHC RDW Plt Count Lymph % (Auto) S[place]th % (Auto) Lymph # [place] # Baso # Seg Neutrophils % Seg Neuts % (Manual) Lymphocytes % (Manual) Monocytes % (Manual) Eosinophils % (Manual) Basophils % (Manual) Nucleated RBC % Seg Neutrophils # Seg Neutrophils # Man Lymphocytes # (Manual) Monocytes # (Manual) Eosinophils # (Manual) PT INR Fibrinogen dRVVT Confirm Interp Factor V Activity POC ABG pH POC ABG pCO2 17.3 L POC ABG pO2 112 H Sodium Potassium Chloride Carbon Dioxide BUN Creatinine Glucose POC Glucose 143 H 164 H Lactic Acid Calcium Phosphorus Magnesium Direct Bilirubin AST ALT Alkaline Phosphatase Lactate Dehydrogenase Troponin T C-Reactive Protein Total Protein Albumin Prealbumin Triglycerides Cholesterol LDL Cholesterol Direct HDL Cholesterol Urine pH Urine WBC (Auto) Urine Creatinine Urine Total Protein Fluid Total Protein Vancomycin Trough Rheumatoid Factor Complement C4 Miscellaneous Test Crossmatch 09/24/16 09/24/16 09/24/16 05:21 11:58 17:06 WBC RBC Hgb Hct MCV MCH MCHC RDW Plt Count Lymph % (Auto) S[place]th % (Auto) Lymph # [place] # Baso # Seg Neutrophils % Seg Neuts % (Manual) Lymphocytes % (Manual) Monocytes % (Manual) Eosinophils % (Manual) Basophils % (Manual) Nucleated RBC % Seg Neutrophils # Seg Neutrophils # Man Lymphocytes # (Manual) Monocytes # (Manual) Eosinophils # (Manual) PT INR Fibrinogen dRVVT Confirm Interp Factor V Activity POC ABG pH POC ABG pCO2 POC ABG pO2 Sodium Potassium Chloride Carbon Dioxide 10 L BUN 103 H Creatinine 4.3 H Glucose 163 H POC Glucose 173 H 167 H Lactic Acid Calcium 6.5 L Phosphorus Magnesium Direct Bilirubin AST ALT Alkaline Phosphatase Lactate Dehydrogenase Troponin T C-Reactive Protein Total Protein Albumin Prealbumin Triglycerides Cholesterol LDL Cholesterol Direct HDL Cholesterol Urine pH Urine WBC (Auto) Urine Creatinine Urine Total Protein Fluid Total Protein Vancomycin Trough Rheumatoid Factor Complement C4 Miscellaneous Test Crossmatch 09/24/16 09/24/16 09/24/16 20:15 21:02 23:48 WBC RBC Hgb Hct MCV MCH MCHC RDW Plt Count Lymph % (Auto) [place]th % (Auto) Lymph # [place] # Baso # Seg Neutrophils % Seg Neuts % (Manual) Lymphocytes % (Manual) Monocytes % (Manual) Eosinophils % (Manual) Basophils % (Manual) Nucleated RBC % Seg Neutrophils # Seg Neutrophils # Man Lymphocytes # (Manual) Monocytes # (Manual) Eosinophils # (Manual) PT INR Fibrinogen dRVVT Confirm Interp Factor V Activity POC ABG pH 7.288 L POC ABG pCO2 30.2 L 21.5 L POC ABG pO2 32 L 39 L Sodium Potassium Chloride Carbon Dioxide BUN Creatinine Glucose POC Glucose 109 H Lactic Acid Calcium Phosphorus Magnesium Direct Bilirubin AST ALT Alkaline Phosphatase Lactate Dehydrogenase Troponin T C-Reactive Protein Total Protein Albumin Prealbumin Triglycerides Cholesterol LDL Cholesterol Direct HDL Cholesterol Urine pH Urine WBC (Auto) Urine Creatinine Urine Total Protein Fluid Total Protein Vancomycin Trough Rheumatoid Factor Complement C4 Miscellaneous Test Crossmatch 09/25/16 09/25/16 09/25/16 04:20 04:20 04:20 WBC RBC 2.58 L Hgb 7.0 L Hct 21.0 L MCV MCH 27 L MCHC RDW 23.8 H Plt Count Lymph % (Auto) [place]th % (Auto) Lymph # [place] # Baso # Seg Neutrophils % Seg Neuts % (Manual) Lymphocytes % (Manual) 12.0 L Monocytes % (Manual) Eosinophils % (Manual) 7.0 H Basophils % (Manual) 2.0 H Nucleated RBC % Seg Neutrophils # Seg Neutrophils # Man Lymphocytes # (Manual) 0.9 L Monocytes # (Manual) Eosinophils # (Manual) 0.5 H PT INR Fibrinogen dRVVT Confirm Interp Factor V Activity POC ABG pH POC ABG pCO2 POC ABG pO2 Sodium Potassium Chloride Carbon Dioxide 15 L BUN 72 H Creatinine 3.8 H Glucose POC Glucose Lactic Acid Calcium 6.0 L Phosphorus 4.60 H Magnesium 1.60 L Direct Bilirubin AST ALT Alkaline Phosphatase Lactate Dehydrogenase Troponin T C-Reactive Protein Total Protein Albumin Prealbumin Triglycerides Cholesterol LDL Cholesterol Direct HDL Cholesterol Urine pH Urine WBC (Auto) Urine Creatinine Urine Total Protein Fluid Total Protein Vancomycin Trough Rheumatoid Factor Complement C4 Miscellaneous Test Crossmatch 09/25/16 09/25/16 09/25/16 04:57 08:02 10:30 WBC RBC Hgb Hct MCV MCH MCHC RDW Plt Count Lymph % (Auto) [place]th % (Auto) Lymph # [place] # Baso # Seg Neutrophils % Seg Neuts % (Manual) Lymphocytes % (Manual) Monocytes % (Manual) Eosinophils % (Manual) Basophils % (Manual) Nucleated RBC % Seg Neutrophils # Seg Neutrophils # Man Lymphocytes # (Manual) Monocytes # (Manual) Eosinophils # (Manual) PT INR Fibrinogen dRVVT Confirm Interp Factor V Activity POC ABG pH POC ABG pCO2 24.7 L POC ABG pO2 152 H Sodium Potassium Chloride Carbon Dioxide BUN Creatinine Glucose POC Glucose 113 H Lactic Acid Calcium Phosphorus Magnesium Direct Bilirubin AST ALT Alkaline Phosphatase Lactate Dehydrogenase Troponin T C-Reactive Protein Total Protein Albumin Prealbumin Triglycerides Cholesterol LDL Cholesterol Direct HDL Cholesterol Urine pH Urine WBC (Auto) Urine Creatinine Urine Total Protein Fluid Total Protein Vancomycin Trough Rheumatoid Factor Complement C4 Miscellaneous Test Crossmatch See Detail 09/25/16 09/25/16 09/25/16 12:05 17:44 23:47 WBC RBC Hgb Hct MCV MCH MCHC RDW Plt Count Lymph % (Auto) [place]th % (Auto) Lymph # [place] # Baso # Seg Neutrophils % Seg Neuts % (Manual) Lymphocytes % (Manual) Monocytes % (Manual) Eosinophils % (Manual) Basophils % (Manual) Nucleated RBC % Seg Neutrophils # Seg Neutrophils # Man Lymphocytes # (Manual) Monocytes # (Manual) Eosinophils # (Manual) PT INR Fibrinogen dRVVT Confirm Interp Factor V Activity POC ABG pH POC ABG pCO2 POC ABG pO2 Sodium Potassium Chloride Carbon Dioxide BUN Creatinine Glucose POC Glucose 117 H 119 H 150 H Lactic Acid Calcium Phosphorus Magnesium Direct Bilirubin AST ALT Alkaline Phosphatase Lactate Dehydrogenase Troponin T C-Reactive Protein Total Protein Albumin Prealbumin Triglycerides Cholesterol LDL Cholesterol Direct HDL Cholesterol Urine pH Urine WBC (Auto) Urine Creatinine Urine Total Protein Fluid Total Protein Vancomycin Trough Rheumatoid Factor Complement C4 Miscellaneous Test Crossmatch 09/26/16 09/26/16 09/26/16 04:25 04:25 04:25 WBC RBC 2.65 L Hgb 7.4 L Hct 21.6 L MCV MCH MCHC RDW 22.5 H Plt Count Lymph % (Auto) [place]th % (Auto) Lymph # [place] # Baso # Seg Neutrophils % Seg Neuts % (Manual) Lymphocytes % (Manual) 6.0 L Monocytes % (Manual) Eosinophils % (Manual) 11.0 H Basophils % (Manual) Nucleated RBC % Seg Neutrophils # Seg Neutrophils # Man Lymphocytes # (Manual) 0.4 L Monocytes # (Manual) Eosinophils # (Manual) 0.6 H PT INR Fibrinogen dRVVT Confirm Interp Factor V Activity POC ABG pH POC ABG pCO2 POC ABG pO2 Sodium Potassium Chloride 97.0 L Carbon Dioxide 19 L BUN 43 H Creatinine 2.6 H Glucose 130 H POC Glucose Lactic Acid 4.40 H* Calcium 6.7 L Phosphorus Magnesium Direct Bilirubin AST ALT Alkaline Phosphatase Lactate Dehydrogenase Troponin T C-Reactive Protein Total Protein Albumin Prealbumin Triglycerides Cholesterol LDL Cholesterol Direct HDL Cholesterol Urine pH Urine WBC (Auto) Urine Creatinine Urine Total Protein Fluid Total Protein Vancomycin Trough Rheumatoid Factor Complement C4 Miscellaneous Test Crossmatch 09/26/16 09/26/16 09/26/16 05:20 11:44 12:12 WBC RBC Hgb Hct MCV MCH MCHC RDW Plt Count Lymph % (Auto) [place]th % (Auto) Lymph # [place] # Baso # Seg Neutrophils % Seg Neuts % (Manual) Lymphocytes % (Manual) Monocytes % (Manual) Eosinophils % (Manual) Basophils % (Manual) Nucleated RBC % Seg Neutrophils # Seg Neutrophils # Man Lymphocytes # (Manual) Monocytes # (Manual) Eosinophils # (Manual) PT INR Fibrinogen dRVVT Confirm Interp Factor V Activity POC ABG pH POC ABG pCO2 27.0 L POC ABG pO2 69 L Sodium Potassium Chloride Carbon Dioxide BUN Creatinine Glucose POC Glucose 121 H 128 H Lactic Acid Calcium Phosphorus Magnesium Direct Bilirubin AST ALT Alkaline Phosphatase Lactate Dehydrogenase Troponin T C-Reactive Protein Total Protein Albumin Prealbumin Triglycerides Cholesterol LDL Cholesterol Direct HDL Cholesterol Urine pH Urine WBC (Auto) Urine Creatinine Urine Total Protein Fluid Total Protein Vancomycin Trough Rheumatoid Factor Complement C4 Miscellaneous Test Crossmatch 09/26/16 09/26/16 09/27/16 18:31 23:40 08:20 WBC RBC Hgb Hct MCV MCH MCHC RDW Plt Count Lymph % (Auto) [place]th % (Auto) Lymph # [place] # Baso # Seg Neutrophils % Seg Neuts % (Manual) Lymphocytes % (Manual) Monocytes % (Manual) Eosinophils % (Manual) Basophils % (Manual) Nucleated RBC % Seg Neutrophils # Seg Neutrophils # Man Lymphocytes # (Manual) Monocytes # (Manual) Eosinophils # (Manual) PT INR Fibrinogen dRVVT Confirm Interp Factor V Activity POC ABG pH POC ABG pCO2 POC ABG pO2 Sodium Potassium Chloride Carbon Dioxide BUN Creatinine Glucose POC Glucose 120 H 133 H Lactic Acid 4.10 H* Calcium Phosphorus Magnesium Direct Bilirubin AST ALT Alkaline Phosphatase Lactate Dehydrogenase Troponin T C-Reactive Protein Total Protein Albumin Prealbumin Triglycerides Cholesterol LDL Cholesterol Direct HDL Cholesterol Urine pH Urine WBC (Auto) Urine Creatinine Urine Total Protein Fluid Total Protein Vancomycin Trough Rheumatoid Factor Complement C4 Miscellaneous Test Crossmatch 09/27/16 09/27/16 09/27/16 11:23 15:00 18:15 WBC RBC Hgb Hct MCV MCH MCHC RDW Plt Count Lymph % (Auto) [place]th % (Auto) Lymph # [place] # Baso # Seg Neutrophils % Seg Neuts % (Manual) Lymphocytes % (Manual) Monocytes % (Manual) Eosinophils % (Manual) Basophils % (Manual) Nucleated RBC % Seg Neutrophils # Seg Neutrophils # Man Lymphocytes # (Manual) Monocytes # (Manual) Eosinophils # (Manual) PT INR Fibrinogen dRVVT Confirm Interp Factor V Activity POC ABG pH 7.459 H POC ABG pCO2 27.1 L POC ABG pO2 140 H Sodium Potassium Chloride Carbon Dioxide BUN Creatinine Glucose POC Glucose 114 H 127 H Lactic Acid Calcium Phosphorus Magnesium Direct Bilirubin AST ALT Alkaline Phosphatase Lactate Dehydrogenase Troponin T C-Reactive Protein Total Protein Albumin Prealbumin Triglycerides Cholesterol LDL Cholesterol Direct HDL Cholesterol Urine pH Urine WBC (Auto) Urine Creatinine Urine Total Protein Fluid Total Protein Vancomycin Trough Rheumatoid Factor Complement C4 Miscellaneous Test Crossmatch 09/27/16 09/27/16 09/28/16 Unknown Unknown 03:45 WBC RBC 2.49 L Hgb 6.8 L Hct 20.7 L MCV MCH 27 L MCHC RDW 22.1 H Plt Count Lymph % (Auto) [place]th % (Auto) Lymph # [place] # Baso # Seg Neutrophils % Seg Neuts % (Manual) 32.0 L Lymphocytes % (Manual) 12.0 L Monocytes % (Manual) 11.0 H Eosinophils % (Manual) 10.0 H Basophils % (Manual) Nucleated RBC % Seg Neutrophils # Seg Neutrophils # Man Lymphocytes # (Manual) 1.0 L Monocytes # (Manual) 0.9 H Eosinophils # (Manual) 0.8 H PT INR Fibrinogen dRVVT Confirm Interp Factor V Activity POC ABG pH POC ABG pCO2 POC ABG pO2 Sodium 135 L 135 L Potassium 3.5 L Chloride 93.6 L 94.4 L Carbon Dioxide 17 L 21 L BUN 45 H 28 H Creatinine 3.3 H 2.5 H Glucose 106 H POC Glucose Lactic Acid Calcium 7.3 L 7.1 L Phosphorus Magnesium Direct Bilirubin AST ALT Alkaline Phosphatase Lactate Dehydrogenase Troponin T C-Reactive Protein Total Protein Albumin Prealbumin Triglycerides Cholesterol LDL Cholesterol Direct HDL Cholesterol Urine pH Urine WBC (Auto) Urine Creatinine Urine Total Protein Fluid Total Protein Vancomycin Trough Rheumatoid Factor Complement C4 Miscellaneous Test Crossmatch 09/28/16 09/28/16 09/28/16 03:45 07:25 11:58 WBC 13.3 H RBC 3.01 L Hgb 8.4 L Hct 25.0 L MCV MCH MCHC RDW 20.5 H Plt Count 128 L Lymph % (Auto) [place]th % (Auto) Lymph # [place] # Baso # Seg Neutrophils % Seg Neuts % (Manual) Lymphocytes % (Manual) 7.0 L Monocytes % (Manual) Eosinophils % (Manual) 6.0 H Basophils % (Manual) Nucleated RBC % Seg Neutrophils # Seg Neutrophils # Man Lymphocytes # (Manual) 0.9 L Monocytes # (Manual) Eosinophils # (Manual) 0.8 H PT INR Fibrinogen dRVVT Confirm Interp Factor V Activity POC ABG pH POC ABG pCO2 POC ABG pO2 Sodium Potassium Chloride Carbon Dioxide BUN Creatinine Glucose POC Glucose 121 H Lactic Acid 4.50 H* Calcium Phosphorus Magnesium Direct Bilirubin AST ALT Alkaline Phosphatase Lactate Dehydrogenase Troponin T C-Reactive Protein Total Protein Albumin Prealbumin Triglycerides Cholesterol LDL Cholesterol Direct HDL Cholesterol Urine pH Urine WBC (Auto) Urine Creatinine Urine Total Protein Fluid Total Protein Vancomycin Trough Rheumatoid Factor Complement C4 Miscellaneous Test Crossmatch 09/29/16 09/29/16 09/29/16 06:45 06:45 06:45 WBC 14.9 H RBC 2.74 L Hgb 7.6 L Hct 23.2 L MCV MCH MCHC RDW 20.5 H Plt Count 81 L Lymph % (Auto) [place]th % (Auto) Lymph # [place] # Baso # Seg Neutrophils % Seg Neuts % (Manual) 81.0 H Lymphocytes % (Manual) 4.0 L Monocytes % (Manual) Eosinophils % (Manual) Basophils % (Manual) Nucleated RBC % Seg Neutrophils # Seg Neutrophils # Man 12.1 H Lymphocytes # (Manual) 0.6 L Monocytes # (Manual) Eosinophils # (Manual) PT INR Fibrinogen dRVVT Confirm Interp Factor V Activity POC ABG pH POC ABG pCO2 POC ABG pO2 Sodium 133 L Potassium 3.4 L Chloride 92.5 L Carbon Dioxide 21 L BUN 33 H Creatinine 3.0 H Glucose POC Glucose Lactic Acid Calcium 6.6 L Phosphorus Magnesium 1.40 L Direct Bilirubin 0.9 H AST ALT Alkaline Phosphatase Lactate Dehydrogenase Troponin T C-Reactive Protein Total Protein 4.3 L Albumin 1.3 L Prealbumin Triglycerides Cholesterol LDL Cholesterol Direct HDL Cholesterol Urine pH Urine WBC (Auto) Urine Creatinine Urine Total Protein Fluid Total Protein Vancomycin Trough Rheumatoid Factor Complement C4 Miscellaneous Test Crossmatch 09/29/16 09/29/16 09/30/16 17:52 20:12 00:07 WBC RBC Hgb Hct MCV MCH MCHC RDW Plt Count Lymph % (Auto) [place]th % (Auto) Lymph # [place] # Baso # Seg Neutrophils % Seg Neuts % (Manual) Lymphocytes % (Manual) Monocytes % (Manual) Eosinophils % (Manual) Basophils % (Manual) Nucleated RBC % Seg Neutrophils # Seg Neutrophils # Man Lymphocytes # (Manual) Monocytes # (Manual) Eosinophils # (Manual) PT INR Fibrinogen dRVVT Confirm Interp Factor V Activity POC ABG pH POC ABG pCO2 POC ABG pO2 Sodium Potassium Chloride Carbon Dioxide BUN Creatinine Glucose POC Glucose 50 L 51 L Lactic Acid Calcium Phosphorus Magnesium Direct Bilirubin AST ALT Alkaline Phosphatase Lactate Dehydrogenase Troponin T 0.204 H* C-Reactive Protein Total Protein Albumin Prealbumin Triglycerides Cholesterol 31 L LDL Cholesterol Direct 4 L HDL Cholesterol 3 L Urine pH Urine WBC (Auto) Urine Creatinine Urine Total Protein Fluid Total Protein Vancomycin Trough Rheumatoid Factor Complement C4 Miscellaneous Test Crossmatch 09/30/16 09/30/16 09/30/16 01:30 05:15 06:10 WBC RBC Hgb Hct MCV MCH MCHC RDW Plt Count Lymph % (Auto) [place]th % (Auto) Lymph # [place] # Baso # Seg Neutrophils % Seg Neuts % (Manual) Lymphocytes % (Manual) Monocytes % (Manual) Eosinophils % (Manual) Basophils % (Manual) Nucleated RBC % Seg Neutrophils # Seg Neutrophils # Man Lymphocytes # (Manual) Monocytes # (Manual) Eosinophils # (Manual) PT INR Fibrinogen dRVVT Confirm Interp Factor V Activity POC ABG pH POC ABG pCO2 POC ABG pO2 Sodium 133 L Potassium 3.2 L Chloride 93.2 L Carbon Dioxide 19 L BUN 36 H Creatinine 3.2 H Glucose 104 H POC Glucose 167 H 146 H Lactic Acid Calcium 6.4 L Phosphorus Magnesium 1.60 L Direct Bilirubin AST ALT Alkaline Phosphatase Lactate Dehydrogenase Troponin T C-Reactive Protein Total Protein Albumin Prealbumin Triglycerides Cholesterol LDL Cholesterol Direct HDL Cholesterol Urine pH Urine WBC (Auto) Urine Creatinine Urine Total Protein Fluid Total Protein Vancomycin Trough Rheumatoid Factor Complement C4 Miscellaneous Test Crossmatch 09/30/16 09/30/16 09/30/16 11:26 13:39 18:38 WBC RBC Hgb Hct MCV MCH MCHC RDW Plt Count Lymph % (Auto) [place]th % (Auto) Lymph # [place] # Baso # Seg Neutrophils % Seg Neuts % (Manual) Lymphocytes % (Manual) Monocytes % (Manual) Eosinophils % (Manual) Basophils % (Manual) Nucleated RBC % Seg Neutrophils # Seg Neutrophils # Man Lymphocytes # (Manual) Monocytes # (Manual) Eosinophils # (Manual) PT INR Fibrinogen dRVVT Confirm Interp Factor V Activity POC ABG pH 7.479 H POC ABG pCO2 29.8 L POC ABG pO2 117 H Sodium Potassium Chloride Carbon Dioxide BUN Creatinine Glucose POC Glucose 140 H 122 H Lactic Acid Calcium Phosphorus Magnesium Direct Bilirubin AST ALT Alkaline Phosphatase Lactate Dehydrogenase Troponin T C-Reactive Protein Total Protein Albumin Prealbumin Triglycerides Cholesterol LDL Cholesterol Direct HDL Cholesterol Urine pH Urine WBC (Auto) Urine Creatinine Urine Total Protein Fluid Total Protein Vancomycin Trough Rheumatoid Factor Complement C4 Miscellaneous Test Crossmatch 10/01/16 10/01/16 10/01/16 06:00 06:00 12:37 WBC 12.6 H RBC 2.75 L Hgb 7.3 L Hct 23.3 L MCV MCH 27 L MCHC RDW 20.6 H Plt Count 72 L Lymph % (Auto) [place] % (Auto) Lymph # [place] # Baso # Seg Neutrophils % Seg Neuts % (Manual) 31.0 L Lymphocytes % (Manual) 8.0 L Monocytes % (Manual) Eosinophils % (Manual) Basophils % (Manual) Nucleated RBC % 3.0 H Seg Neutrophils # Seg Neutrophils # Man Lymphocytes # (Manual) 1.0 L Monocytes # (Manual) Eosinophils # (Manual) PT INR Fibrinogen dRVVT Confirm Interp Factor V Activity POC ABG pH POC ABG pCO2 POC ABG pO2 Sodium 127 L Potassium Chloride 86.8 L Carbon Dioxide 20 L BUN 42 H Creatinine 3.5 H Glucose POC Glucose 65 L Lactic Acid Calcium 7.0 L Phosphorus Magnesium Direct Bilirubin AST ALT Alkaline Phosphatase Lactate Dehydrogenase Troponin T C-Reactive Protein Total Protein Albumin Prealbumin Triglycerides Cholesterol LDL Cholesterol Direct HDL Cholesterol Urine pH Urine WBC (Auto) Urine Creatinine Urine Total Protein Fluid Total Protein Vancomycin Trough Rheumatoid Factor Complement C4 Miscellaneous Test Crossmatch 10/01/16 10/01/16 10/02/16 17:39 23:32 00:59 WBC RBC Hgb Hct MCV MCH MCHC RDW Plt Count Lymph % (Auto) [place]th % (Auto) Lymph # [place] # Baso # Seg Neutrophils % Seg Neuts % (Manual) Lymphocytes % (Manual) Monocytes % (Manual) Eosinophils % (Manual) Basophils % (Manual) Nucleated RBC % Seg Neutrophils # Seg Neutrophils # Man Lymphocytes # (Manual) Monocytes # (Manual) Eosinophils # (Manual) PT INR Fibrinogen dRVVT Confirm Interp Factor V Activity POC ABG pH POC ABG pCO2 POC ABG pO2 Sodium Potassium Chloride Carbon Dioxide BUN Creatinine Glucose POC Glucose 107 H 52 L 145 H Lactic Acid Calcium Phosphorus Magnesium Direct Bilirubin AST ALT Alkaline Phosphatase Lactate Dehydrogenase Troponin T C-Reactive Protein Total Protein Albumin Prealbumin Triglycerides Cholesterol LDL Cholesterol Direct HDL Cholesterol Urine pH Urine WBC (Auto) Urine Creatinine Urine Total Protein Fluid Total Protein Vancomycin Trough Rheumatoid Factor Complement C4 Miscellaneous Test Crossmatch 10/02/16 10/02/16 10/02/16 10:30 10:50 10:50 WBC 14.7 H RBC 2.76 L Hgb 7.4 L Hct 23.6 L MCV MCH 27 L MCHC RDW 20.2 H Plt Count 79 L Lymph % (Auto) [place] % (Auto) Lymph # [place] # Baso # Seg Neutrophils % Seg Neuts % (Manual) 86.0 H Lymphocytes % (Manual) 6.0 L Monocytes % (Manual) Eosinophils % (Manual) Basophils % (Manual) Nucleated RBC % Seg Neutrophils # Seg Neutrophils # Man 12.6 H Lymphocytes # (Manual) 0.9 L Monocytes # (Manual) Eosinophils # (Manual) PT INR Fibrinogen dRVVT Confirm Interp Factor V Activity POC ABG pH 7.486 H POC ABG pCO2 30.1 L POC ABG pO2 108 H Sodium 131 L Potassium 3.4 L Chloride 89.9 L Carbon Dioxide BUN 26 H Creatinine 2.6 H Glucose POC Glucose Lactic Acid Calcium 7.0 L Phosphorus Magnesium Direct Bilirubin AST ALT Alkaline Phosphatase Lactate Dehydrogenase Troponin T C-Reactive Protein Total Protein Albumin Prealbumin Triglycerides Cholesterol LDL Cholesterol Direct HDL Cholesterol Urine pH Urine WBC (Auto) Urine Creatinine Urine Total Protein Fluid Total Protein Vancomycin Trough Rheumatoid Factor Complement C4 Miscellaneous Test Crossmatch 10/02/16 10/03/16 10/03/16 23:45 00:45 05:10 WBC 12.9 H RBC 2.77 L Hgb 7.6 L Hct 23.7 L MCV MCH 27 L MCHC RDW 19.7 H Plt Count 89 L Lymph % (Auto) [place] % (Auto) Lymph # [place] # Baso # Seg Neutrophils % Seg Neuts % (Manual) Lymphocytes % (Manual) 8.0 L Monocytes % (Manual) Eosinophils % (Manual) Basophils % (Manual) Nucleated RBC % Seg Neutrophils # 11.9 H Seg Neutrophils # Man Lymphocytes # (Manual) 1.0 L Monocytes # (Manual) Eosinophils # (Manual) PT INR Fibrinogen dRVVT Confirm Interp Factor V Activity POC ABG pH POC ABG pCO2 POC ABG pO2 Sodium Potassium Chloride Carbon Dioxide BUN Creatinine Glucose POC Glucose 55 L 199 H Lactic Acid Calcium Phosphorus Magnesium Direct Bilirubin AST ALT Alkaline Phosphatase Lactate Dehydrogenase Troponin T C-Reactive Protein Total Protein Albumin Prealbumin Triglycerides Cholesterol LDL Cholesterol Direct HDL Cholesterol Urine pH Urine WBC (Auto) Urine Creatinine Urine Total Protein Fluid Total Protein Vancomycin Trough Rheumatoid Factor Complement C4 Miscellaneous Test Crossmatch 10/03/16 10/03/16 10/03/16 05:10 12:14 13:18 WBC RBC Hgb Hct MCV MCH MCHC RDW Plt Count Lymph % (Auto) [place]th % (Auto) Lymph # [place] # Baso # Seg Neutrophils % Seg Neuts % (Manual) Lymphocytes % (Manual) Monocytes % (Manual) Eosinophils % (Manual) Basophils % (Manual) Nucleated RBC % Seg Neutrophils # Seg Neutrophils # Man Lymphocytes # (Manual) Monocytes # (Manual) Eosinophils # (Manual) PT INR Fibrinogen dRVVT Confirm Interp Factor V Activity POC ABG pH POC ABG pCO2 POC ABG pO2 Sodium 129 L Potassium 3.3 L Chloride 88.8 L Carbon Dioxide 20 L BUN 29 H Creatinine 2.8 H Glucose POC Glucose 68 L 127 H Lactic Acid Calcium 7.2 L Phosphorus Magnesium Direct Bilirubin AST ALT Alkaline Phosphatase Lactate Dehydrogenase Troponin T C-Reactive Protein Total Protein Albumin Prealbumin Triglycerides Cholesterol LDL Cholesterol Direct HDL Cholesterol Urine pH Urine WBC (Auto) Urine Creatinine Urine Total Protein Fluid Total Protein Vancomycin Trough Rheumatoid Factor Complement C4 Miscellaneous Test Crossmatch 10/03/16 10/03/16 10/03/16 14:42 18:21 19:09 WBC RBC Hgb Hct MCV MCH MCHC RDW Plt Count Lymph % (Auto) [place] % (Auto) Lymph # [place] # Baso # Seg Neutrophils % Seg Neuts % (Manual) Lymphocytes % (Manual) Monocytes % (Manual) Eosinophils % (Manual) Basophils % (Manual) Nucleated RBC % Seg Neutrophils # Seg Neutrophils # Man Lymphocytes # (Manual) Monocytes # (Manual) Eosinophils # (Manual) PT INR Fibrinogen dRVVT Confirm Interp Factor V Activity POC ABG pH 7.499 H POC ABG pCO2 28.4 L POC ABG pO2 44 L Sodium Potassium Chloride Carbon Dioxide BUN Creatinine Glucose POC Glucose 64 L 205 H Lactic Acid Calcium Phosphorus Magnesium Direct Bilirubin AST ALT Alkaline Phosphatase Lactate Dehydrogenase Troponin T C-Reactive Protein Total Protein Albumin Prealbumin Triglycerides Cholesterol LDL Cholesterol Direct HDL Cholesterol Urine pH Urine WBC (Auto) Urine Creatinine Urine Total Protein Fluid Total Protein Vancomycin Trough Rheumatoid Factor Complement C4 Miscellaneous Test Crossmatch 10/03/16 10/04/16 10/04/16 23:33 04:18 06:30 WBC RBC 2.54 L Hgb 7.1 L Hct 21.7 L MCV MCH MCHC RDW 19.5 H Plt Count 76 L Lymph % (Auto) [place] % (Auto) Lymph # [place] # Baso # Seg Neutrophils % Seg Neuts % (Manual) 88.0 H Lymphocytes % (Manual) 6.0 L Monocytes % (Manual) Eosinophils % (Manual) Basophils % (Manual) Nucleated RBC % Seg Neutrophils # Seg Neutrophils # Man 8.8 H Lymphocytes # (Manual) 0.6 L Monocytes # (Manual) Eosinophils # (Manual) PT INR Fibrinogen dRVVT Confirm Interp Factor V Activity POC ABG pH 7.461 H POC ABG pCO2 33.6 L POC ABG pO2 211 H Sodium Potassium Chloride Carbon Dioxide BUN Creatinine Glucose POC Glucose 136 H Lactic Acid Calcium Phosphorus Magnesium Direct Bilirubin AST ALT Alkaline Phosphatase Lactate Dehydrogenase Troponin T C-Reactive Protein Total Protein Albumin Prealbumin Triglycerides Cholesterol LDL Cholesterol Direct HDL Cholesterol Urine pH Urine WBC (Auto) Urine Creatinine Urine Total Protein Fluid Total Protein Vancomycin Trough Rheumatoid Factor Complement C4 Miscellaneous Test Crossmatch 10/04/16 10/04/16 10/04/16 06:30 11:45 17:54 WBC RBC Hgb Hct MCV MCH MCHC RDW Plt Count Lymph % (Auto) [place] % (Auto) Lymph # [place] # Baso # Seg Neutrophils % Seg Neuts % (Manual) Lymphocytes % (Manual) Monocytes % (Manual) Eosinophils % (Manual) Basophils % (Manual) Nucleated RBC % Seg Neutrophils # Seg Neutrophils # Man Lymphocytes # (Manual) Monocytes # (Manual) Eosinophils # (Manual) PT INR Fibrinogen dRVVT Confirm Interp Factor V Activity POC ABG pH POC ABG pCO2 POC ABG pO2 Sodium 128 L Potassium Chloride 87.4 L Carbon Dioxide 20 L BUN 34 H Creatinine 2.9 H Glucose 127 H POC Glucose 158 H 160 H Lactic Acid Calcium 7.4 L Phosphorus Magnesium Direct Bilirubin AST ALT Alkaline Phosphatase Lactate Dehydrogenase Troponin T C-Reactive Protein Total Protein Albumin Prealbumin Triglycerides Cholesterol LDL Cholesterol Direct HDL Cholesterol Urine pH Urine WBC (Auto) Urine Creatinine Urine Total Protein Fluid Total Protein Vancomycin Trough Rheumatoid Factor Complement C4 Miscellaneous Test Crossmatch 10/04/16 10/05/16 10/05/16 23:25 04:30 05:00 WBC RBC 2.64 L Hgb 7.5 L Hct 22.6 L MCV MCH MCHC RDW 19.3 H Plt Count 80 L Lymph % (Auto) [place] % (Auto) Lymph # [place] # Baso # Seg Neutrophils % Seg Neuts % (Manual) Lymphocytes % (Manual) 12.0 L Monocytes % (Manual) Eosinophils % (Manual) Basophils % (Manual) Nucleated RBC % Seg Neutrophils # Seg Neutrophils # Man Lymphocytes # (Manual) Monocytes # (Manual) Eosinophils # (Manual) PT INR Fibrinogen dRVVT Confirm Interp Factor V Activity POC ABG pH 7.475 H POC ABG pCO2 33.3 L POC ABG pO2 140 H Sodium Potassium Chloride Carbon Dioxide BUN Creatinine Glucose POC Glucose 141 H Lactic Acid Calcium Phosphorus Magnesium Direct Bilirubin AST ALT Alkaline Phosphatase Lactate Dehydrogenase Troponin T C-Reactive Protein Total Protein Albumin Prealbumin Triglycerides Cholesterol LDL Cholesterol Direct HDL Cholesterol Urine pH Urine WBC (Auto) Urine Creatinine Urine Total Protein Fluid Total Protein Vancomycin Trough Rheumatoid Factor Complement C4 Miscellaneous Test Crossmatch 10/05/16 10/05/16 10/05/16 05:00 05:09 12:58 WBC RBC Hgb Hct MCV MCH MCHC RDW Plt Count Lymph % (Auto) [place] % (Auto) Lymph # [place] # Baso # Seg Neutrophils % Seg Neuts % (Manual) Lymphocytes % (Manual) Monocytes % (Manual) Eosinophils % (Manual) Basophils % (Manual) Nucleated RBC % Seg Neutrophils # Seg Neutrophils # Man Lymphocytes # (Manual) Monocytes # (Manual) Eosinophils # (Manual) PT INR Fibrinogen dRVVT Confirm Interp Factor V Activity POC ABG pH POC ABG pCO2 POC ABG pO2 Sodium 131 L Potassium Chloride 94.0 L Carbon Dioxide 20 L BUN 22 H Creatinine 2.0 H Glucose 123 H POC Glucose 166 H 179 H Lactic Acid Calcium 7.7 L Phosphorus 2.20 L D Magnesium Direct Bilirubin AST ALT Alkaline Phosphatase Lactate Dehydrogenase Troponin T C-Reactive Protein Total Protein Albumin Prealbumin Triglycerides Cholesterol LDL Cholesterol Direct HDL Cholesterol Urine pH Urine WBC (Auto) Urine Creatinine Urine Total Protein Fluid Total Protein Vancomycin Trough Rheumatoid Factor Complement C4 Miscellaneous Test Crossmatch 10/05/16 10/05/16 10/05/16 15:50 18:53 23:12 WBC RBC Hgb Hct MCV MCH MCHC RDW Plt Count Lymph % (Auto) [place] % (Auto) Lymph # [place] # Baso # Seg Neutrophils % Seg Neuts % (Manual) Lymphocytes % (Manual) Monocytes % (Manual) Eosinophils % (Manual) Basophils % (Manual) Nucleated RBC % Seg Neutrophils # Seg Neutrophils # Man Lymphocytes # (Manual) Monocytes # (Manual) Eosinophils # (Manual) PT INR Fibrinogen dRVVT Confirm Interp Factor V Activity POC ABG pH POC ABG pCO2 POC ABG pO2 Sodium Potassium Chloride Carbon Dioxide BUN Creatinine Glucose POC Glucose 150 H 164 H Lactic Acid Calcium Phosphorus Magnesium Direct Bilirubin AST ALT Alkaline Phosphatase Lactate Dehydrogenase Troponin T C-Reactive Protein Total Protein Albumin Prealbumin Triglycerides Cholesterol LDL Cholesterol Direct HDL Cholesterol Urine pH Urine WBC (Auto) Urine Creatinine Urine Total Protein Fluid Total Protein Vancomycin Trough Rheumatoid Factor Complement C4 Miscellaneous Test Crossmatch See Detail 10/06/16 10/06/16 10/06/16 03:50 03:50 04:53 WBC RBC 3.00 L Hgb 8.6 L Hct 25.8 L MCV MCH MCHC RDW 17.9 H Plt Count 65 L Lymph % (Auto) [place] % (Auto) Lymph # [place] # Baso # Seg Neutrophils % Seg Neuts % (Manual) 30.0 L Lymphocytes % (Manual) 5.0 L Monocytes % (Manual) Eosinophils % (Manual) Basophils % (Manual) Nucleated RBC % Seg Neutrophils # Seg Neutrophils # Man Lymphocytes # (Manual) 0.4 L Monocytes # (Manual) Eosinophils # (Manual) PT INR Fibrinogen dRVVT Confirm Interp Factor V Activity POC ABG pH 7.310 L POC ABG pCO2 49.0 H POC ABG pO2 Sodium 133 L Potassium Chloride 95.9 L Carbon Dioxide BUN 26 H Creatinine 2.0 H Glucose 116 H POC Glucose Lactic Acid Calcium 7.8 L Phosphorus Magnesium Direct Bilirubin AST ALT Alkaline Phosphatase Lactate Dehydrogenase Troponin T C-Reactive Protein Total Protein Albumin Prealbumin Triglycerides Cholesterol LDL Cholesterol Direct HDL Cholesterol Urine pH Urine WBC (Auto) Urine Creatinine Urine Total Protein Fluid Total Protein Vancomycin Trough Rheumatoid Factor Complement C4 Miscellaneous Test Crossmatch 10/06/16 10/06/16 10/06/16 05:23 11:52 18:34 WBC RBC Hgb Hct MCV MCH MCHC RDW Plt Count Lymph % (Auto) [place] % (Auto) Lymph # [place] # Baso # Seg Neutrophils % Seg Neuts % (Manual) Lymphocytes % (Manual) Monocytes % (Manual) Eosinophils % (Manual) Basophils % (Manual) Nucleated RBC % Seg Neutrophils # Seg Neutrophils # Man Lymphocytes # (Manual) Monocytes # (Manual) Eosinophils # (Manual) PT INR Fibrinogen dRVVT Confirm Interp Factor V Activity POC ABG pH POC ABG pCO2 POC ABG pO2 Sodium Potassium Chloride Carbon Dioxide BUN Creatinine Glucose POC Glucose 126 H 116 H 129 H Lactic Acid Calcium Phosphorus Magnesium Direct Bilirubin AST ALT Alkaline Phosphatase Lactate Dehydrogenase Troponin T C-Reactive Protein Total Protein Albumin Prealbumin Triglycerides Cholesterol LDL Cholesterol Direct HDL Cholesterol Urine pH Urine WBC (Auto) Urine Creatinine Urine Total Protein Fluid Total Protein Vancomycin Trough Rheumatoid Factor Complement C4 Miscellaneous Test Crossmatch 10/07/16 10/07/16 10/07/16 03:45 05:00 10:00 WBC 17.0 H RBC 2.68 L Hgb 7.3 L Hct 25.3 L MCV MCH 27 L MCHC 29 L RDW 19.6 H Plt Count 74 L Lymph % (Auto) [place] % (Auto) Lymph # [place] # Baso # Seg Neutrophils % Seg Neuts % (Manual) Lymphocytes % (Manual) 12.0 L Monocytes % (Manual) Eosinophils % (Manual) Basophils % (Manual) Nucleated RBC % 4.0 H Seg Neutrophils # Seg Neutrophils # Man 10.7 H Lymphocytes # (Manual) Monocytes # (Manual) Eosinophils # (Manual) PT INR Fibrinogen dRVVT Confirm Interp Factor V Activity POC ABG pH POC ABG pCO2 POC ABG pO2 Sodium 130 L Potassium 3.2 L Chloride 93.9 L Carbon Dioxide 20 L BUN 44 H Creatinine 2.7 H Glucose 129 H POC Glucose Lactic Acid Calcium 7.4 L Phosphorus Magnesium Direct Bilirubin AST ALT 6 L Alkaline Phosphatase 195 H Lactate Dehydrogenase Troponin T C-Reactive Protein Total Protein 4.9 L Albumin 1.0 L Prealbumin Triglycerides Cholesterol LDL Cholesterol Direct HDL Cholesterol Urine pH Urine WBC (Auto) Urine Creatinine Urine Total Protein Fluid Total Protein Vancomycin Trough Rheumatoid Factor Complement C4 Miscellaneous Test Flexitest 1 H Crossmatch 10/07/16 10/07/16 10/07/16 10:00 11:24 18:10 WBC RBC Hgb Hct MCV MCH MCHC RDW Plt Count Lymph % (Auto) [place]th % (Auto) Lymph # [place] # Baso # Seg Neutrophils % Seg Neuts % (Manual) Lymphocytes % (Manual) Monocytes % (Manual) Eosinophils % (Manual) Basophils % (Manual) Nucleated RBC % Seg Neutrophils # Seg Neutrophils # Man Lymphocytes # (Manual) Monocytes # (Manual) Eosinophils # (Manual) PT INR Fibrinogen dRVVT Confirm Interp Factor V Activity POC ABG pH POC ABG pCO2 POC ABG pO2 Sodium Potassium Chloride Carbon Dioxide BUN Creatinine Glucose POC Glucose 116 H 130 H Lactic Acid Calcium Phosphorus Magnesium Direct Bilirubin AST ALT Alkaline Phosphatase Lactate Dehydrogenase Troponin T C-Reactive Protein 19.40 H Total Protein Albumin Prealbumin Triglycerides Cholesterol LDL Cholesterol Direct HDL Cholesterol Urine pH Urine WBC (Auto) Urine Creatinine Urine Total Protein Fluid Total Protein Vancomycin Trough Rheumatoid Factor Complement C4 Miscellaneous Test Crossmatch 10/07/16 10/08/16 10/08/16 18:30 00:00 04:00 WBC RBC Hgb Hct MCV MCH MCHC RDW Plt Count Lymph % (Auto) [place]th % (Auto) Lymph # [place] # Baso # Seg Neutrophils % Seg Neuts % (Manual) Lymphocytes % (Manual) Monocytes % (Manual) Eosinophils % (Manual) Basophils % (Manual) Nucleated RBC % Seg Neutrophils # Seg Neutrophils # Man Lymphocytes # (Manual) Monocytes # (Manual) Eosinophils # (Manual) PT INR Fibrinogen dRVVT Confirm Interp Factor V Activity POC ABG pH POC ABG pCO2 POC ABG pO2 Sodium 132 L Potassium 3.3 L Chloride 93.6 L Carbon Dioxide 17 L BUN 59 H Creatinine 2.7 H Glucose 121 H POC Glucose 122 H Lactic Acid Calcium 7.6 L Phosphorus Magnesium Direct Bilirubin AST ALT Alkaline Phosphatase Lactate Dehydrogenase Troponin T C-Reactive Protein Total Protein Albumin Prealbumin Triglycerides Cholesterol LDL Cholesterol Direct HDL Cholesterol Urine pH Urine WBC (Auto) > 182.0 H Urine Creatinine Urine Total Protein Fluid Total Protein Vancomycin Trough Rheumatoid Factor Complement C4 Miscellaneous Test Crossmatch 10/08/16 10/08/16 10/08/16 04:30 05:30 11:51 WBC RBC 5.15 H Hgb 14.4 H D Hct 44.5 H D MCV MCH MCHC RDW 19.5 H Plt Count 56 L Lymph % (Auto) [place]th % (Auto) Lymph # [place] # Baso # Seg Neutrophils % Seg Neuts % (Manual) 24.0 L Lymphocytes % (Manual) 8.0 L Monocytes % (Manual) Eosinophils % (Manual) Basophils % (Manual) Nucleated RBC % 9.0 H Seg Neutrophils # Seg Neutrophils # Man Lymphocytes # (Manual) 0.7 L Monocytes # (Manual) Eosinophils # (Manual) PT INR Fibrinogen dRVVT Confirm Interp Factor V Activity POC ABG pH POC ABG pCO2 POC ABG pO2 Sodium Potassium Chloride Carbon Dioxide BUN Creatinine Glucose POC Glucose 125 H 150 H Lactic Acid Calcium Phosphorus Magnesium Direct Bilirubin AST ALT Alkaline Phosphatase Lactate Dehydrogenase Troponin T C-Reactive Protein Total Protein Albumin Prealbumin Triglycerides Cholesterol LDL Cholesterol Direct HDL Cholesterol Urine pH Urine WBC (Auto) Urine Creatinine Urine Total Protein Fluid Total Protein Vancomycin Trough Rheumatoid Factor Complement C4 Miscellaneous Test Crossmatch 10/08/16 10/08/16 10/08/16 12:49 17:07 19:30 WBC RBC Hgb 7.1 L D Hct 22.4 L D MCV MCH MCHC RDW Plt Count Lymph % (Auto) [place] % (Auto) Lymph # [place] # Baso # Seg Neutrophils % Seg Neuts % (Manual) Lymphocytes % (Manual) Monocytes % (Manual) Eosinophils % (Manual) Basophils % (Manual) Nucleated RBC % Seg Neutrophils # Seg Neutrophils # Man Lymphocytes # (Manual) Monocytes # (Manual) Eosinophils # (Manual) PT INR Fibrinogen dRVVT Confirm Interp Factor V Activity POC ABG pH POC ABG pCO2 28.2 L POC ABG pO2 111 H Sodium Potassium Chloride Carbon Dioxide BUN Creatinine Glucose POC Glucose 145 H Lactic Acid Calcium Phosphorus Magnesium Direct Bilirubin AST ALT Alkaline Phosphatase Lactate Dehydrogenase Troponin T C-Reactive Protein Total Protein Albumin Prealbumin Triglycerides Cholesterol LDL Cholesterol Direct HDL Cholesterol Urine pH Urine WBC (Auto) Urine Creatinine Urine Total Protein Fluid Total Protein Vancomycin Trough Rheumatoid Factor Complement C4 Miscellaneous Test Crossmatch 10/08/16 10/09/16 10/09/16 19:30 03:45 03:45 WBC 12.6 H RBC 2.36 L Hgb 6.7 L Hct 21.1 L MCV MCH MCHC RDW 19.5 H Plt Count 75 L Lymph % (Auto) [place]th % (Auto) Lymph # [place] # Baso # Seg Neutrophils % Seg Neuts % (Manual) Lymphocytes % (Manual) Monocytes % (Manual) 10.0 H Eosinophils % (Manual) Basophils % (Manual) Nucleated RBC % 3.0 H Seg Neutrophils # Seg Neutrophils # Man Lymphocytes # (Manual) Monocytes # (Manual) 1.3 H Eosinophils # (Manual) PT 18.0 H INR 1.41 H Fibrinogen dRVVT Confirm Interp Factor V Activity POC ABG pH POC ABG pCO2 POC ABG pO2 Sodium 135 L Potassium Chloride Carbon Dioxide 17 L BUN 81 H Creatinine 3.2 H Glucose 109 H POC Glucose Lactic Acid Calcium 7.4 L Phosphorus 4.60 H D Magnesium Direct Bilirubin AST ALT Alkaline Phosphatase Lactate Dehydrogenase Troponin T C-Reactive Protein Total Protein Albumin Prealbumin Triglycerides Cholesterol LDL Cholesterol Direct HDL Cholesterol Urine pH Urine WBC (Auto) Urine Creatinine Urine Total Protein Fluid Total Protein Vancomycin Trough Rheumatoid Factor Complement C4 Miscellaneous Test Crossmatch 10/09/16 10/09/16 10/09/16 03:45 05:14 07:20 WBC RBC Hgb Hct MCV MCH MCHC RDW Plt Count Lymph % (Auto) [place]th % (Auto) Lymph # [place] # Baso # Seg Neutrophils % Seg Neuts % (Manual) Lymphocytes % (Manual) Monocytes % (Manual) Eosinophils % (Manual) Basophils % (Manual) Nucleated RBC % Seg Neutrophils # Seg Neutrophils # Man Lymphocytes # (Manual) Monocytes # (Manual) Eosinophils # (Manual) PT 19.0 H INR 1.51 H Fibrinogen dRVVT Confirm Interp Factor V Activity POC ABG pH POC ABG pCO2 POC ABG pO2 Sodium Potassium Chloride Carbon Dioxide BUN Creatinine Glucose POC Glucose 151 H Lactic Acid Calcium Phosphorus Magnesium Direct Bilirubin AST ALT Alkaline Phosphatase Lactate Dehydrogenase Troponin T C-Reactive Protein Total Protein Albumin Prealbumin Triglycerides Cholesterol LDL Cholesterol Direct HDL Cholesterol Urine pH Urine WBC (Auto) Urine Creatinine Urine Total Protein Fluid Total Protein Vancomycin Trough Rheumatoid Factor Complement C4 Miscellaneous Test Crossmatch See Detail 10/09/16 10/09/16 10/09/16 11:46 16:20 16:43 WBC RBC Hgb 7.2 L Hct 22.2 L MCV MCH MCHC RDW Plt Count Lymph % (Auto) [place] % (Auto) Lymph # [place] # Baso # Seg Neutrophils % Seg Neuts % (Manual) Lymphocytes % (Manual) Monocytes % (Manual) Eosinophils % (Manual) Basophils % (Manual) Nucleated RBC % Seg Neutrophils # Seg Neutrophils # Man Lymphocytes # (Manual) Monocytes # (Manual) Eosinophils # (Manual) PT INR Fibrinogen dRVVT Confirm Interp Factor V Activity POC ABG pH POC ABG pCO2 POC ABG pO2 Sodium Potassium Chloride Carbon Dioxide BUN Creatinine Glucose POC Glucose 133 H 141 H Lactic Acid Calcium Phosphorus Magnesium Direct Bilirubin AST ALT Alkaline Phosphatase Lactate Dehydrogenase Troponin T C-Reactive Protein Total Protein Albumin Prealbumin Triglycerides Cholesterol LDL Cholesterol Direct HDL Cholesterol Urine pH Urine WBC (Auto) Urine Creatinine Urine Total Protein Fluid Total Protein Vancomycin Trough Rheumatoid Factor Complement C4 Miscellaneous Test Crossmatch 10/10/16 10/10/16 10/10/16 05:00 05:00 11:19 WBC 18.5 H RBC 2.19 L Hgb 6.4 L Hct 19.6 L* MCV MCH MCHC RDW 19.3 H Plt Count 93 L Lymph % (Auto) [place] % (Auto) Lymph # [place] # Baso # Seg Neutrophils % Seg Neuts % (Manual) Lymphocytes % (Manual) 10.0 L Monocytes % (Manual) Eosinophils % (Manual) Basophils % (Manual) Nucleated RBC % 4.0 H Seg Neutrophils # Seg Neutrophils # Man 11.3 H Lymphocytes # (Manual) Monocytes # (Manual) Eosinophils # (Manual) PT INR Fibrinogen dRVVT Confirm Interp Factor V Activity POC ABG pH POC ABG pCO2 POC ABG pO2 Sodium Potassium 5.7 H D Chloride Carbon Dioxide 16 L BUN 94 H Creatinine 3.1 H Glucose 131 H POC Glucose 153 H Lactic Acid Calcium 8.2 L Phosphorus 5.10 H Magnesium 2.40 H Direct Bilirubin 0.3 H AST ALT < 5 L Alkaline Phosphatase 319 H Lactate Dehydrogenase Troponin T C-Reactive Protein Total Protein 5.1 L Albumin 1.0 L Prealbumin Triglycerides Cholesterol LDL Cholesterol Direct HDL Cholesterol Urine pH Urine WBC (Auto) Urine Creatinine Urine Total Protein Fluid Total Protein Vancomycin Trough Rheumatoid Factor Complement C4 Miscellaneous Test Crossmatch 10/10/16 10/10/16 10/11/16 17:50 23:30 04:15 WBC RBC Hgb Hct MCV MCH MCHC RDW Plt Count Lymph % (Auto) [place] % (Auto) Lymph # [place] # Baso # Seg Neutrophils % Seg Neuts % (Manual) Lymphocytes % (Manual) Monocytes % (Manual) Eosinophils % (Manual) Basophils % (Manual) Nucleated RBC % Seg Neutrophils # Seg Neutrophils # Man Lymphocytes # (Manual) Monocytes # (Manual) Eosinophils # (Manual) PT INR Fibrinogen dRVVT Confirm Interp Factor V Activity POC ABG pH POC ABG pCO2 POC ABG pO2 Sodium Potassium Chloride 96.4 L Carbon Dioxide 21 L BUN 57 H Creatinine 2.1 H Glucose 151 H POC Glucose 146 H 141 H Lactic Acid Calcium 8.3 L Phosphorus Magnesium Direct Bilirubin AST ALT Alkaline Phosphatase Lactate Dehydrogenase Troponin T C-Reactive Protein Total Protein Albumin Prealbumin Triglycerides Cholesterol LDL Cholesterol Direct HDL Cholesterol Urine pH Urine WBC (Auto) Urine Creatinine Urine Total Protein Fluid Total Protein Vancomycin Trough Rheumatoid Factor Complement C4 Miscellaneous Test Crossmatch 10/11/16 10/11/16 10/11/16 04:15 04:15 05:30 WBC 28.3 H RBC 3.12 L Hgb 9.3 L Hct 28.7 L D MCV MCH MCHC RDW 17.7 H Plt Count 128 L Lymph % (Auto) [place] % (Auto) Lymph # [place] # Baso # Seg Neutrophils % Seg Neuts % (Manual) Lymphocytes % (Manual) Monocytes % (Manual) Eosinophils % (Manual) Basophils % (Manual) Nucleated RBC % Seg Neutrophils # Seg Neutrophils # Man Lymphocytes # (Manual) Monocytes # (Manual) Eosinophils # (Manual) PT INR Fibrinogen dRVVT Confirm Interp Factor V Activity POC ABG pH POC ABG pCO2 POC ABG pO2 Sodium Potassium Chloride Carbon Dioxide BUN Creatinine Glucose POC Glucose 167 H Lactic Acid Calcium Phosphorus Magnesium Direct Bilirubin AST ALT Alkaline Phosphatase Lactate Dehydrogenase Troponin T C-Reactive Protein 15.80 H Total Protein Albumin Prealbumin Triglycerides Cholesterol LDL Cholesterol Direct HDL Cholesterol Urine pH Urine WBC (Auto) Urine Creatinine Urine Total Protein Fluid Total Protein Vancomycin Trough Rheumatoid Factor Complement C4 Miscellaneous Test Crossmatch 10/11/16 10/11/16 10/11/16 11:40 15:49 23:57 WBC RBC Hgb Hct MCV MCH MCHC RDW Plt Count Lymph % (Auto) [place] % (Auto) Lymph # [place] # Baso # Seg Neutrophils % Seg Neuts % (Manual) Lymphocytes % (Manual) Monocytes % (Manual) Eosinophils % (Manual) Basophils % (Manual) Nucleated RBC % Seg Neutrophils # Seg Neutrophils # Man Lymphocytes # (Manual) Monocytes # (Manual) Eosinophils # (Manual) PT INR Fibrinogen dRVVT Confirm Interp Factor V Activity POC ABG pH POC ABG pCO2 POC ABG pO2 Sodium Potassium Chloride Carbon Dioxide BUN Creatinine Glucose POC Glucose 139 H 168 H 161 H Lactic Acid Calcium Phosphorus Magnesium Direct Bilirubin AST ALT Alkaline Phosphatase Lactate Dehydrogenase Troponin T C-Reactive Protein Total Protein Albumin Prealbumin Triglycerides Cholesterol LDL Cholesterol Direct HDL Cholesterol Urine pH Urine WBC (Auto) Urine Creatinine Urine Total Protein Fluid Total Protein Vancomycin Trough Rheumatoid Factor Complement C4 Miscellaneous Test Crossmatch 10/12/16 10/12/16 10/12/16 04:40 04:40 05:44 WBC 22.5 H RBC 2.88 L Hgb 8.8 L Hct 26.8 L MCV MCH MCHC RDW 17.8 H Plt Count Lymph % (Auto) [place] % (Auto) Lymph # [place] # Baso # Seg Neutrophils % Seg Neuts % (Manual) Lymphocytes % (Manual) Monocytes % (Manual) Eosinophils % (Manual) Basophils % (Manual) Nucleated RBC % Seg Neutrophils # Seg Neutrophils # Man Lymphocytes # (Manual) Monocytes # (Manual) Eosinophils # (Manual) PT INR Fibrinogen dRVVT Confirm Interp Factor V Activity POC ABG pH POC ABG pCO2 POC ABG pO2 Sodium 134 L Potassium Chloride 93.0 L Carbon Dioxide BUN 74 H Creatinine 2.5 H Glucose 137 H POC Glucose 158 H Lactic Acid Calcium 8.2 L Phosphorus Magnesium Direct Bilirubin AST ALT Alkaline Phosphatase Lactate Dehydrogenase Troponin T C-Reactive Protein Total Protein Albumin Prealbumin Triglycerides Cholesterol LDL Cholesterol Direct HDL Cholesterol Urine pH Urine WBC (Auto) Urine Creatinine Urine Total Protein Fluid Total Protein Vancomycin Trough Rheumatoid Factor Complement C4 Miscellaneous Test Crossmatch 10/12/16 10/12/16 10/12/16 12:27 18:18 23:46 WBC RBC Hgb Hct MCV MCH MCHC RDW Plt Count Lymph % (Auto) [place] % (Auto) Lymph # [place] # Baso # Seg Neutrophils % Seg Neuts % (Manual) Lymphocytes % (Manual) Monocytes % (Manual) Eosinophils % (Manual) Basophils % (Manual) Nucleated RBC % Seg Neutrophils # Seg Neutrophils # Man Lymphocytes # (Manual) Monocytes # (Manual) Eosinophils # (Manual) PT INR Fibrinogen dRVVT Confirm Interp Factor V Activity POC ABG pH POC ABG pCO2 POC ABG pO2 Sodium Potassium Chloride Carbon Dioxide BUN Creatinine Glucose POC Glucose 153 H 140 H 150 H Lactic Acid Calcium Phosphorus Magnesium Direct Bilirubin AST ALT Alkaline Phosphatase Lactate Dehydrogenase Troponin T C-Reactive Protein Total Protein Albumin Prealbumin Triglycerides Cholesterol LDL Cholesterol Direct HDL Cholesterol Urine pH Urine WBC (Auto) Urine Creatinine Urine Total Protein Fluid Total Protein Vancomycin Trough Rheumatoid Factor Complement C4 Miscellaneous Test Crossmatch 10/13/16 10/13/16 10/13/16 06:22 09:20 12:29 WBC RBC Hgb Hct MCV MCH MCHC RDW Plt Count Lymph % (Auto) [place] % (Auto) Lymph # [place] # Baso # Seg Neutrophils % Seg Neuts % (Manual) Lymphocytes % (Manual) Monocytes % (Manual) Eosinophils % (Manual) Basophils % (Manual) Nucleated RBC % Seg Neutrophils # Seg Neutrophils # Man Lymphocytes # (Manual) Monocytes # (Manual) Eosinophils # (Manual) PT INR Fibrinogen dRVVT Confirm Interp Factor V Activity POC ABG pH POC ABG pCO2 POC ABG pO2 Sodium Potassium Chloride Carbon Dioxide BUN Creatinine Glucose POC Glucose 165 H 193 H Lactic Acid Calcium Phosphorus Magnesium Direct Bilirubin AST ALT Alkaline Phosphatase Lactate Dehydrogenase Troponin T C-Reactive Protein Total Protein Albumin Prealbumin Triglycerides Cholesterol LDL Cholesterol Direct HDL Cholesterol Urine pH Urine WBC (Auto) Urine Creatinine Urine Total Protein Fluid Total Protein Vancomycin Trough Rheumatoid Factor Complement C4 Miscellaneous Test Flexitest 1 H Crossmatch 10/13/16 10/13/16 10/13/16 18:09 Unknown Unknown WBC 23.4 H RBC 2.83 L Hgb 8.7 L Hct 26.1 L MCV MCH MCHC RDW 18.1 H Plt Count Lymph % (Auto) [place] % (Auto) Lymph # [place] # Baso # Seg Neutrophils % Seg Neuts % (Manual) Lymphocytes % (Manual) Monocytes % (Manual) Eosinophils % (Manual) Basophils % (Manual) Nucleated RBC % Seg Neutrophils # Seg Neutrophils # Man Lymphocytes # (Manual) Monocytes # (Manual) Eosinophils # (Manual) PT INR Fibrinogen dRVVT Confirm Interp Factor V Activity POC ABG pH POC ABG pCO2 POC ABG pO2 Sodium Potassium Chloride 95.8 L Carbon Dioxide BUN 82 H Creatinine 2.6 H Glucose 152 H POC Glucose 166 H Lactic Acid Calcium Phosphorus Magnesium Direct Bilirubin AST ALT Alkaline Phosphatase Lactate Dehydrogenase Troponin T C-Reactive Protein Total Protein Albumin Prealbumin Triglycerides Cholesterol LDL Cholesterol Direct HDL Cholesterol Urine pH Urine WBC (Auto) Urine Creatinine Urine Total Protein Fluid Total Protein Vancomycin Trough Rheumatoid Factor Complement C4 Miscellaneous Test Crossmatch 10/14/16 10/14/16 10/14/16 05:38 06:35 08:10 WBC 20.7 H RBC 2.81 L Hgb 8.4 L Hct 27.2 L MCV MCH MCHC RDW 19.4 H Plt Count Lymph % (Auto) [place] % (Auto) Lymph # [place] # Baso # Seg Neutrophils % Seg Neuts % (Manual) Lymphocytes % (Manual) Monocytes % (Manual) Eosinophils % (Manual) Basophils % (Manual) Nucleated RBC % Seg Neutrophils # Seg Neutrophils # Man Lymphocytes # (Manual) Monocytes # (Manual) Eosinophils # (Manual) PT INR Fibrinogen dRVVT Confirm Interp Factor V Activity POC ABG pH POC ABG pCO2 POC ABG pO2 Sodium Potassium Chloride Carbon Dioxide BUN 58 H Creatinine 1.9 H Glucose 169 H POC Glucose 195 H Lactic Acid Calcium Phosphorus Magnesium Direct Bilirubin AST ALT Alkaline Phosphatase Lactate Dehydrogenase Troponin T C-Reactive Protein Total Protein Albumin Prealbumin Triglycerides Cholesterol LDL Cholesterol Direct HDL Cholesterol Urine pH Urine WBC (Auto) Urine Creatinine Urine Total Protein Fluid Total Protein Vancomycin Trough Rheumatoid Factor Complement C4 Miscellaneous Test Crossmatch 10/14/16 10/14/16 10/14/16 11:44 17:13 23:28 WBC RBC Hgb Hct MCV MCH MCHC RDW Plt Count Lymph % (Auto) [place] % (Auto) Lymph # [place] # Baso # Seg Neutrophils % Seg Neuts % (Manual) Lymphocytes % (Manual) Monocytes % (Manual) Eosinophils % (Manual) Basophils % (Manual) Nucleated RBC % Seg Neutrophils # Seg Neutrophils # Man Lymphocytes # (Manual) Monocytes # (Manual) Eosinophils # (Manual) PT INR Fibrinogen dRVVT Confirm Interp Factor V Activity POC ABG pH POC ABG pCO2 POC ABG pO2 Sodium Potassium Chloride Carbon Dioxide BUN Creatinine Glucose POC Glucose 174 H 121 H 151 H Lactic Acid Calcium Phosphorus Magnesium Direct Bilirubin AST ALT Alkaline Phosphatase Lactate Dehydrogenase Troponin T C-Reactive Protein Total Protein Albumin Prealbumin Triglycerides Cholesterol LDL Cholesterol Direct HDL Cholesterol Urine pH Urine WBC (Auto) Urine Creatinine Urine Total Protein Fluid Total Protein Vancomycin Trough Rheumatoid Factor Complement C4 Miscellaneous Test Crossmatch 10/15/16 10/15/16 10/15/16 05:06 12:26 17:48 WBC RBC Hgb Hct MCV MCH MCHC RDW Plt Count Lymph % (Auto) [place] % (Auto) Lymph # [place] # Baso # Seg Neutrophils % Seg Neuts % (Manual) Lymphocytes % (Manual) Monocytes % (Manual) Eosinophils % (Manual) Basophils % (Manual) Nucleated RBC % Seg Neutrophils # Seg Neutrophils # Man Lymphocytes # (Manual) Monocytes # (Manual) Eosinophils # (Manual) PT INR Fibrinogen dRVVT Confirm Interp Factor V Activity POC ABG pH POC ABG pCO2 POC ABG pO2 Sodium Potassium Chloride Carbon Dioxide BUN Creatinine Glucose POC Glucose 151 H 149 H 153 H Lactic Acid Calcium Phosphorus Magnesium Direct Bilirubin AST ALT Alkaline Phosphatase Lactate Dehydrogenase Troponin T C-Reactive Protein Total Protein Albumin Prealbumin Triglycerides Cholesterol LDL Cholesterol Direct HDL Cholesterol Urine pH Urine WBC (Auto) Urine Creatinine Urine Total Protein Fluid Total Protein Vancomycin Trough Rheumatoid Factor Complement C4 Miscellaneous Test Crossmatch 10/15/16 10/15/16 10/16/16 Unknown Unknown 00:02 WBC 23.4 H RBC 2.78 L Hgb 8.5 L Hct 25.7 L MCV MCH MCHC RDW 18.7 H Plt Count Lymph % (Auto) [place] % (Auto) Lymph # [place] # Baso # Seg Neutrophils % Seg Neuts % (Manual) Lymphocytes % (Manual) Monocytes % (Manual) Eosinophils % (Manual) Basophils % (Manual) Nucleated RBC % Seg Neutrophils # Seg Neutrophils # Man Lymphocytes # (Manual) Monocytes # (Manual) Eosinophils # (Manual) PT INR Fibrinogen dRVVT Confirm Interp Factor V Activity POC ABG pH POC ABG pCO2 POC ABG pO2 Sodium Potassium Chloride Carbon Dioxide BUN 73 H Creatinine 2.3 H Glucose 120 H POC Glucose 137 H Lactic Acid Calcium Phosphorus Magnesium Direct Bilirubin AST ALT Alkaline Phosphatase Lactate Dehydrogenase Troponin T C-Reactive Protein Total Protein Albumin Prealbumin Triglycerides Cholesterol LDL Cholesterol Direct HDL Cholesterol Urine pH Urine WBC (Auto) Urine Creatinine Urine Total Protein Fluid Total Protein Vancomycin Trough Rheumatoid Factor Complement C4 Miscellaneous Test Crossmatch 10/16/16 10/16/16 10/16/16 05:44 06:25 06:25 WBC 22.5 H RBC 2.76 L Hgb 8.3 L Hct 25.2 L MCV MCH MCHC RDW 18.3 H Plt Count Lymph % (Auto) [place] % (Auto) Lymph # [place] # Baso # Seg Neutrophils % Seg Neuts % (Manual) Lymphocytes % (Manual) Monocytes % (Manual) Eosinophils % (Manual) Basophils % (Manual) Nucleated RBC % Seg Neutrophils # Seg Neutrophils # Man Lymphocytes # (Manual) Monocytes # (Manual) Eosinophils # (Manual) PT INR Fibrinogen dRVVT Confirm Interp Factor V Activity POC ABG pH POC ABG pCO2 POC ABG pO2 Sodium Potassium Chloride Carbon Dioxide BUN 92 H Creatinine 3.0 H Glucose 138 H POC Glucose 110 H Lactic Acid Calcium Phosphorus Magnesium Direct Bilirubin AST ALT Alkaline Phosphatase Lactate Dehydrogenase Troponin T C-Reactive Protein Total Protein Albumin Prealbumin Triglycerides Cholesterol LDL Cholesterol Direct HDL Cholesterol Urine pH Urine WBC (Auto) Urine Creatinine Urine Total Protein Fluid Total Protein Vancomycin Trough Rheumatoid Factor Complement C4 Miscellaneous Test Crossmatch 10/16/16 10/16/16 10/16/16 11:27 11:48 17:36 WBC RBC Hgb Hct MCV MCH MCHC RDW Plt Count Lymph % (Auto) [place] % (Auto) Lymph # [place] # Baso # Seg Neutrophils % Seg Neuts % (Manual) Lymphocytes % (Manual) Monocytes % (Manual) Eosinophils % (Manual) Basophils % (Manual) Nucleated RBC % Seg Neutrophils # Seg Neutrophils # Man Lymphocytes # (Manual) Monocytes # (Manual) Eosinophils # (Manual) PT INR Fibrinogen dRVVT Confirm Interp Factor V Activity POC ABG pH 7.582 H POC ABG pCO2 27.4 L POC ABG pO2 110 H Sodium Potassium Chloride Carbon Dioxide BUN Creatinine Glucose POC Glucose 121 H 133 H Lactic Acid Calcium Phosphorus Magnesium Direct Bilirubin AST ALT Alkaline Phosphatase Lactate Dehydrogenase Troponin T C-Reactive Protein Total Protein Albumin Prealbumin Triglycerides Cholesterol LDL Cholesterol Direct HDL Cholesterol Urine pH Urine WBC (Auto) Urine Creatinine Urine Total Protein Fluid Total Protein Vancomycin Trough Rheumatoid Factor Complement C4 Miscellaneous Test Crossmatch 10/16/16 10/17/16 10/17/16 20:48 04:24 04:24 WBC 21.4 H RBC 2.72 L Hgb 8.0 L Hct 25.2 L MCV MCH MCHC RDW 18.0 H Plt Count Lymph % (Auto) [place] % (Auto) Lymph # [place] # Baso # Seg Neutrophils % Seg Neuts % (Manual) Lymphocytes % (Manual) Monocytes % (Manual) Eosinophils % (Manual) Basophils % (Manual) Nucleated RBC % Seg Neutrophils # Seg Neutrophils # Man Lymphocytes # (Manual) Monocytes # (Manual) Eosinophils # (Manual) PT INR Fibrinogen dRVVT Confirm Interp Factor V Activity POC ABG pH 7.561 H POC ABG pCO2 24.4 L POC ABG pO2 77 L Sodium 148 H Potassium Chloride Carbon Dioxide BUN 104 H Creatinine 3.0 H Glucose 149 H POC Glucose Lactic Acid Calcium Phosphorus Magnesium Direct Bilirubin AST ALT Alkaline Phosphatase 138 H Lactate Dehydrogenase Troponin T C-Reactive Protein Total Protein 6.2 L Albumin 1.5 L Prealbumin Triglycerides Cholesterol LDL Cholesterol Direct HDL Cholesterol Urine pH Urine WBC (Auto) Urine Creatinine Urine Total Protein Fluid Total Protein Vancomycin Trough Rheumatoid Factor Complement C4 Miscellaneous Test Crossmatch 10/17/16 10/17/16 10/17/16 06:02 12:17 17:14 WBC RBC Hgb Hct MCV MCH MCHC RDW Plt Count Lymph % (Auto) [place] % (Auto) Lymph # [place] # Baso # Seg Neutrophils % Seg Neuts % (Manual) Lymphocytes % (Manual) Monocytes % (Manual) Eosinophils % (Manual) Basophils % (Manual) Nucleated RBC % Seg Neutrophils # Seg Neutrophils # Man Lymphocytes # (Manual) Monocytes # (Manual) Eosinophils # (Manual) PT INR Fibrinogen dRVVT Confirm Interp Factor V Activity POC ABG pH POC ABG pCO2 POC ABG pO2 Sodium Potassium Chloride Carbon Dioxide BUN Creatinine Glucose POC Glucose 170 H 167 H 126 H Lactic Acid Calcium Phosphorus Magnesium Direct Bilirubin AST ALT Alkaline Phosphatase Lactate Dehydrogenase Troponin T C-Reactive Protein Total Protein Albumin Prealbumin Triglycerides Cholesterol LDL Cholesterol Direct HDL Cholesterol Urine pH Urine WBC (Auto) Urine Creatinine Urine Total Protein Fluid Total Protein Vancomycin Trough Rheumatoid Factor Complement C4 Miscellaneous Test Crossmatch 10/17/16 10/18/16 10/18/16 23:17 04:00 04:00 WBC 20.7 H RBC 2.47 L Hgb 7.4 L Hct 22.9 L MCV MCH MCHC RDW 17.5 H Plt Count Lymph % (Auto) [place] % (Auto) Lymph # [place] # Baso # Seg Neutrophils % Seg Neuts % (Manual) Lymphocytes % (Manual) Monocytes % (Manual) Eosinophils % (Manual) Basophils % (Manual) Nucleated RBC % Seg Neutrophils # Seg Neutrophils # Man Lymphocytes # (Manual) Monocytes # (Manual) Eosinophils # (Manual) PT INR Fibrinogen dRVVT Confirm Interp Factor V Activity POC ABG pH POC ABG pCO2 POC ABG pO2 Sodium 149 H Potassium Chloride 107.9 H Carbon Dioxide 20 L BUN 117 H Creatinine 3.2 H Glucose 119 H POC Glucose 121 H Lactic Acid Calcium Phosphorus Magnesium Direct Bilirubin AST ALT Alkaline Phosphatase Lactate Dehydrogenase Troponin T C-Reactive Protein Total Protein Albumin Prealbumin Triglycerides Cholesterol LDL Cholesterol Direct HDL Cholesterol Urine pH Urine WBC (Auto) Urine Creatinine Urine Total Protein Fluid Total Protein Vancomycin Trough Rheumatoid Factor Complement C4 Miscellaneous Test Crossmatch 10/18/16 10/18/16 10/18/16 05:23 10:46 17:30 WBC RBC Hgb Hct MCV MCH MCHC RDW Plt Count Lymph % (Auto) [place] % (Auto) Lymph # [place] # Baso # Seg Neutrophils % Seg Neuts % (Manual) Lymphocytes % (Manual) Monocytes % (Manual) Eosinophils % (Manual) Basophils % (Manual) Nucleated RBC % Seg Neutrophils # Seg Neutrophils # Man Lymphocytes # (Manual) Monocytes # (Manual) Eosinophils # (Manual) PT INR Fibrinogen dRVVT Confirm Interp Factor V Activity POC ABG pH POC ABG pCO2 POC ABG pO2 Sodium Potassium Chloride Carbon Dioxide BUN Creatinine Glucose POC Glucose 119 H 155 H 124 H Lactic Acid Calcium Phosphorus Magnesium Direct Bilirubin AST ALT Alkaline Phosphatase Lactate Dehydrogenase Troponin T C-Reactive Protein Total Protein Albumin Prealbumin Triglycerides Cholesterol LDL Cholesterol Direct HDL Cholesterol Urine pH Urine WBC (Auto) Urine Creatinine Urine Total Protein Fluid Total Protein Vancomycin Trough Rheumatoid Factor Complement C4 Miscellaneous Test Crossmatch 10/19/16 10/19/16 10/19/16 04:00 04:00 05:25 WBC 17.4 H RBC 2.54 L Hgb 7.7 L Hct 23.6 L MCV MCH MCHC RDW 17.3 H Plt Count Lymph % (Auto) [place] % (Auto) Lymph # [place] # Baso # Seg Neutrophils % Seg Neuts % (Manual) Lymphocytes % (Manual) Monocytes % (Manual) Eosinophils % (Manual) Basophils % (Manual) Nucleated RBC % Seg Neutrophils # Seg Neutrophils # Man Lymphocytes # (Manual) Monocytes # (Manual) Eosinophils # (Manual) PT INR Fibrinogen dRVVT Confirm Interp Factor V Activity POC ABG pH POC ABG pCO2 POC ABG pO2 Sodium Potassium Chloride Carbon Dioxide BUN 72 H Creatinine 2.1 H Glucose 116 H POC Glucose 119 H Lactic Acid Calcium Phosphorus Magnesium Direct Bilirubin AST ALT Alkaline Phosphatase Lactate Dehydrogenase Troponin T C-Reactive Protein Total Protein Albumin Prealbumin Triglycerides Cholesterol LDL Cholesterol Direct HDL Cholesterol Urine pH Urine WBC (Auto) Urine Creatinine Urine Total Protein Fluid Total Protein Vancomycin Trough Rheumatoid Factor Complement C4 Miscellaneous Test Crossmatch 10/19/16 10/19/16 10/20/16 11:46 23:59 06:00 WBC RBC Hgb Hct MCV MCH MCHC RDW Plt Count Lymph % (Auto) [place] % (Auto) Lymph # [place] # Baso # Seg Neutrophils % Seg Neuts % (Manual) Lymphocytes % (Manual) Monocytes % (Manual) Eosinophils % (Manual) Basophils % (Manual) Nucleated RBC % Seg Neutrophils # Seg Neutrophils # Man Lymphocytes # (Manual) Monocytes # (Manual) Eosinophils # (Manual) PT INR Fibrinogen dRVVT Confirm Interp Factor V Activity POC ABG pH POC ABG pCO2 POC ABG pO2 Sodium Potassium Chloride Carbon Dioxide 17 L BUN 94 H Creatinine 2.7 H Glucose POC Glucose 116 H 117 H Lactic Acid Calcium Phosphorus Magnesium Direct Bilirubin AST ALT Alkaline Phosphatase Lactate Dehydrogenase Troponin T C-Reactive Protein Total Protein Albumin Prealbumin Triglycerides Cholesterol LDL Cholesterol Direct HDL Cholesterol Urine pH Urine WBC (Auto) Urine Creatinine Urine Total Protein Fluid Total Protein Vancomycin Trough Rheumatoid Factor Complement C4 Miscellaneous Test Crossmatch 10/20/16 10/20/16 10/20/16 06:00 11:49 16:00 WBC 19.7 H RBC 2.51 L Hgb 7.7 L Hct 23.5 L MCV MCH MCHC RDW 17.5 H Plt Count Lymph % (Auto) [place] % (Auto) Lymph # [place] # Baso # Seg Neutrophils % Seg Neuts % (Manual) Lymphocytes % (Manual) Monocytes % (Manual) Eosinophils % (Manual) Basophils % (Manual) Nucleated RBC % Seg Neutrophils # Seg Neutrophils # Man Lymphocytes # (Manual) Monocytes # (Manual) Eosinophils # (Manual) PT INR Fibrinogen dRVVT Confirm Interp Factor V Activity POC ABG pH POC ABG pCO2 POC ABG pO2 Sodium Potassium Chloride Carbon Dioxide BUN Creatinine Glucose POC Glucose 117 H Lactic Acid Calcium Phosphorus Magnesium Direct Bilirubin AST ALT Alkaline Phosphatase Lactate Dehydrogenase Troponin T C-Reactive Protein Total Protein Albumin Prealbumin Triglycerides Cholesterol LDL Cholesterol Direct HDL Cholesterol Urine pH Urine WBC (Auto) Urine Creatinine Urine Total Protein Fluid Total Protein Vancomycin Trough Rheumatoid Factor Complement C4 Miscellaneous Test Flexitest 1 H Crossmatch 10/20/16 10/20/16 10/21/16 18:36 23:39 04:00 WBC RBC Hgb Hct MCV MCH MCHC RDW Plt Count Lymph % (Auto) [place] % (Auto) Lymph # [place] # Baso # Seg Neutrophils % Seg Neuts % (Manual) Lymphocytes % (Manual) Monocytes % (Manual) Eosinophils % (Manual) Basophils % (Manual) Nucleated RBC % Seg Neutrophils # Seg Neutrophils # Man Lymphocytes # (Manual) Monocytes # (Manual) Eosinophils # (Manual) PT INR Fibrinogen dRVVT Confirm Interp Factor V Activity POC ABG pH POC ABG pCO2 POC ABG pO2 Sodium Potassium 5.4 H D Chloride Carbon Dioxide 15 L BUN 110 H Creatinine 3.0 H Glucose POC Glucose 127 H 114 H Lactic Acid Calcium Phosphorus Magnesium Direct Bilirubin AST ALT Alkaline Phosphatase Lactate Dehydrogenase Troponin T C-Reactive Protein Total Protein Albumin Prealbumin Triglycerides Cholesterol LDL Cholesterol Direct HDL Cholesterol Urine pH Urine WBC (Auto) Urine Creatinine Urine Total Protein Fluid Total Protein Vancomycin Trough Rheumatoid Factor Complement C4 Miscellaneous Test Crossmatch 10/21/16 10/21/16 10/22/16 05:54 23:46 05:18 WBC RBC Hgb Hct MCV MCH MCHC RDW Plt Count Lymph % (Auto) [place] % (Auto) Lymph # [place] # Baso # Seg Neutrophils % Seg Neuts % (Manual) Lymphocytes % (Manual) Monocytes % (Manual) Eosinophils % (Manual) Basophils % (Manual) Nucleated RBC % Seg Neutrophils # Seg Neutrophils # Man Lymphocytes # (Manual) Monocytes # (Manual) Eosinophils # (Manual) PT INR Fibrinogen dRVVT Confirm Interp Factor V Activity POC ABG pH POC ABG pCO2 POC ABG pO2 Sodium Potassium Chloride Carbon Dioxide BUN Creatinine Glucose POC Glucose 119 H 108 H 109 H Lactic Acid Calcium Phosphorus Magnesium Direct Bilirubin AST ALT Alkaline Phosphatase Lactate Dehydrogenase Troponin T C-Reactive Protein Total Protein Albumin Prealbumin Triglycerides Cholesterol LDL Cholesterol Direct HDL Cholesterol Urine pH Urine WBC (Auto) Urine Creatinine Urine Total Protein Fluid Total Protein Vancomycin Trough Rheumatoid Factor Complement C4 Miscellaneous Test Crossmatch 10/22/16 10/22/16 10/22/16 06:40 06:40 06:40 WBC 14.0 H RBC 2.03 L Hgb 7.0 L Hct 20.5 L MCV 98 H MCH 34 H MCHC 35 H RDW 17.8 H Plt Count Lymph % (Auto) [place] % (Auto) 9.9 H Lymph # [place] # 1.4 H Baso # 0.2 H Seg Neutrophils % 72.0 H Seg Neuts % (Manual) Lymphocytes % (Manual) Monocytes % (Manual) Eosinophils % (Manual) Basophils % (Manual) Nucleated RBC % Seg Neutrophils # 10.0 H Seg Neutrophils # Man Lymphocytes # (Manual) Monocytes # (Manual) Eosinophils # (Manual) PT INR Fibrinogen dRVVT Confirm Interp Factor V Activity POC ABG pH POC ABG pCO2 POC ABG pO2 Sodium 130 L D Potassium Chloride 92.4 L Carbon Dioxide 20 L BUN 50 H Creatinine 1.6 H Glucose 589 H* POC Glucose Lactic Acid Calcium 7.8 L D Phosphorus Magnesium 1.60 L Direct Bilirubin AST ALT Alkaline Phosphatase Lactate Dehydrogenase Troponin T C-Reactive Protein Total Protein Albumin Prealbumin Triglycerides Cholesterol LDL Cholesterol Direct HDL Cholesterol Urine pH Urine WBC (Auto) Urine Creatinine Urine Total Protein Fluid Total Protein Vancomycin Trough Rheumatoid Factor Complement C4 Miscellaneous Test Crossmatch 10/22/16 10/22/16 10/22/16 11:39 16:44 23:36 WBC RBC Hgb Hct MCV MCH MCHC RDW Plt Count Lymph % (Auto) [place] % (Auto) Lymph # [place] # Baso # Seg Neutrophils % Seg Neuts % (Manual) Lymphocytes % (Manual) Monocytes % (Manual) Eosinophils % (Manual) Basophils % (Manual) Nucleated RBC % Seg Neutrophils # Seg Neutrophils # Man Lymphocytes # (Manual) Monocytes # (Manual) Eosinophils # (Manual) PT INR Fibrinogen dRVVT Confirm Interp Factor V Activity POC ABG pH POC ABG pCO2 POC ABG pO2 Sodium Potassium Chloride Carbon Dioxide BUN Creatinine Glucose POC Glucose 142 H 163 H 123 H Lactic Acid Calcium Phosphorus Magnesium Direct Bilirubin AST ALT Alkaline Phosphatase Lactate Dehydrogenase Troponin T C-Reactive Protein Total Protein Albumin Prealbumin Triglycerides Cholesterol LDL Cholesterol Direct HDL Cholesterol Urine pH Urine WBC (Auto) Urine Creatinine Urine Total Protein Fluid Total Protein Vancomycin Trough Rheumatoid Factor Complement C4 Miscellaneous Test Crossmatch 10/23/16 10/23/16 10/23/16 04:58 06:00 12:12 WBC RBC Hgb Hct MCV MCH MCHC RDW Plt Count Lymph % (Auto) [place] % (Auto) Lymph # [place] # Baso # Seg Neutrophils % Seg Neuts % (Manual) Lymphocytes % (Manual) Monocytes % (Manual) Eosinophils % (Manual) Basophils % (Manual) Nucleated RBC % Seg Neutrophils # Seg Neutrophils # Man Lymphocytes # (Manual) Monocytes # (Manual) Eosinophils # (Manual) PT INR Fibrinogen dRVVT Confirm Interp Factor V Activity POC ABG pH POC ABG pCO2 POC ABG pO2 Sodium 133 L Potassium 3.5 L Chloride 96.1 L Carbon Dioxide 18 L BUN 76 H Creatinine 2.1 H Glucose POC Glucose 133 H 138 H Lactic Acid Calcium 8.3 L Phosphorus Magnesium Direct Bilirubin AST ALT Alkaline Phosphatase Lactate Dehydrogenase Troponin T C-Reactive Protein Total Protein Albumin Prealbumin Triglycerides Cholesterol LDL Cholesterol Direct HDL Cholesterol Urine pH Urine WBC (Auto) Urine Creatinine Urine Total Protein Fluid Total Protein Vancomycin Trough Rheumatoid Factor Complement C4 Miscellaneous Test Crossmatch 10/23/16 10/23/16 10/24/16 16:53 23:37 04:00 WBC RBC Hgb Hct MCV MCH MCHC RDW Plt Count Lymph % (Auto) [place] % (Auto) Lymph # [place] # Baso # Seg Neutrophils % Seg Neuts % (Manual) Lymphocytes % (Manual) Monocytes % (Manual) Eosinophils % (Manual) Basophils % (Manual) Nucleated RBC % Seg Neutrophils # Seg Neutrophils # Man Lymphocytes # (Manual) Monocytes # (Manual) Eosinophils # (Manual) PT INR Fibrinogen dRVVT Confirm Interp Factor V Activity POC ABG pH POC ABG pCO2 POC ABG pO2 Sodium 131 L Potassium Chloride 94.5 L Carbon Dioxide 19 L BUN 97 H Creatinine 2.6 H Glucose 110 H POC Glucose 125 H 123 H Lactic Acid Calcium 8.3 L Phosphorus Magnesium Direct Bilirubin AST ALT Alkaline Phosphatase Lactate Dehydrogenase Troponin T C-Reactive Protein Total Protein Albumin Prealbumin Triglycerides Cholesterol LDL Cholesterol Direct HDL Cholesterol Urine pH Urine WBC (Auto) Urine Creatinine Urine Total Protein Fluid Total Protein Vancomycin Trough Rheumatoid Factor Complement C4 Miscellaneous Test Crossmatch 10/24/16 10/24/16 10/24/16 07:49 11:39 17:52 WBC RBC Hgb 6.0 L Hct 19.7 L* MCV MCH MCHC RDW Plt Count Lymph % (Auto) [place] % (Auto) Lymph # [place] # Baso # Seg Neutrophils % Seg Neuts % (Manual) Lymphocytes % (Manual) Monocytes % (Manual) Eosinophils % (Manual) Basophils % (Manual) Nucleated RBC % Seg Neutrophils # Seg Neutrophils # Man Lymphocytes # (Manual) Monocytes # (Manual) Eosinophils # (Manual) PT INR Fibrinogen dRVVT Confirm Interp Factor V Activity POC ABG pH POC ABG pCO2 POC ABG pO2 Sodium Potassium Chloride Carbon Dioxide BUN Creatinine Glucose POC Glucose 106 H 158 H Lactic Acid Calcium Phosphorus Magnesium Direct Bilirubin AST ALT Alkaline Phosphatase Lactate Dehydrogenase Troponin T C-Reactive Protein Total Protein Albumin Prealbumin Triglycerides Cholesterol LDL Cholesterol Direct HDL Cholesterol Urine pH Urine WBC (Auto) Urine Creatinine Urine Total Protein Fluid Total Protein Vancomycin Trough Rheumatoid Factor Complement C4 Miscellaneous Test Crossmatch 10/24/16 10/24/16 10/24/16 20:00 22:27 Unknown WBC RBC Hgb 9.4 L D Hct 27.5 L D MCV MCH MCHC RDW Plt Count Lymph % (Auto) [place] % (Auto) Lymph # [place] # Baso # Seg Neutrophils % Seg Neuts % (Manual) Lymphocytes % (Manual) Monocytes % (Manual) Eosinophils % (Manual) Basophils % (Manual) Nucleated RBC % Seg Neutrophils # Seg Neutrophils # Man Lymphocytes # (Manual) Monocytes # (Manual) Eosinophils # (Manual) PT INR Fibrinogen dRVVT Confirm Interp Factor V Activity POC ABG pH POC ABG pCO2 POC ABG pO2 Sodium Potassium Chloride Carbon Dioxide BUN Creatinine Glucose POC Glucose 125 H Lactic Acid Calcium Phosphorus Magnesium Direct Bilirubin AST ALT Alkaline Phosphatase Lactate Dehydrogenase Troponin T C-Reactive Protein Total Protein Albumin Prealbumin Triglycerides Cholesterol LDL Cholesterol Direct HDL Cholesterol Urine pH Urine WBC (Auto) Urine Creatinine Urine Total Protein Fluid Total Protein Vancomycin Trough Rheumatoid Factor Complement C4 Miscellaneous Test Crossmatch See Detail 10/25/16 10/25/16 10/25/16 04:00 04:00 04:00 WBC 14.2 H RBC 2.98 L Hgb 9.0 L Hct 26.2 L MCV MCH MCHC RDW 16.6 H Plt Count Lymph % (Auto) [place] % (Auto) 10.7 H Lymph # [place] # 1.5 H Baso # Seg Neutrophils % 73.6 H Seg Neuts % (Manual) Lymphocytes % (Manual) Monocytes % (Manual) Eosinophils % (Manual) Basophils % (Manual) Nucleated RBC % Seg Neutrophils # 10.5 H Seg Neutrophils # Man Lymphocytes # (Manual) Monocytes # (Manual) Eosinophils # (Manual) PT INR Fibrinogen dRVVT Confirm Interp Factor V Activity POC ABG pH POC ABG pCO2 POC ABG pO2 Sodium 132 L Potassium Chloride 94.7 L Carbon Dioxide BUN 51 H Creatinine 1.6 H Glucose 130 H POC Glucose Lactic Acid Calcium 8.3 L Phosphorus 1.60 L D Magnesium Direct Bilirubin AST ALT Alkaline Phosphatase Lactate Dehydrogenase Troponin T C-Reactive Protein Total Protein Albumin Prealbumin Triglycerides Cholesterol LDL Cholesterol Direct HDL Cholesterol Urine pH Urine WBC (Auto) Urine Creatinine Urine Total Protein Fluid Total Protein Vancomycin Trough Rheumatoid Factor Complement C4 Miscellaneous Test Crossmatch 10/25/16 10/25/16 10/25/16 04:32 11:48 17:22 WBC RBC Hgb Hct MCV MCH MCHC RDW Plt Count Lymph % (Auto) [place] % (Auto) Lymph # [place] # Baso # Seg Neutrophils % Seg Neuts % (Manual) Lymphocytes % (Manual) Monocytes % (Manual) Eosinophils % (Manual) Basophils % (Manual) Nucleated RBC % Seg Neutrophils # Seg Neutrophils # Man Lymphocytes # (Manual) Monocytes # (Manual) Eosinophils # (Manual) PT INR Fibrinogen dRVVT Confirm Interp Factor V Activity POC ABG pH POC ABG pCO2 POC ABG pO2 Sodium Potassium Chloride Carbon Dioxide BUN Creatinine Glucose POC Glucose 124 H 171 H 120 H Lactic Acid Calcium Phosphorus Magnesium Direct Bilirubin AST ALT Alkaline Phosphatase Lactate Dehydrogenase Troponin T C-Reactive Protein Total Protein Albumin Prealbumin Triglycerides Cholesterol LDL Cholesterol Direct HDL Cholesterol Urine pH Urine WBC (Auto) Urine Creatinine Urine Total Protein Fluid Total Protein Vancomycin Trough Rheumatoid Factor Complement C4 Miscellaneous Test Crossmatch 10/26/16 10/26/16 10/26/16 04:54 07:06 07:06 WBC 16.9 H RBC 3.06 L Hgb 9.1 L Hct 26.9 L MCV MCH MCHC RDW 16.9 H Plt Count Lymph % (Auto) [place] % (Auto) Lymph # [place] # Baso # Seg Neutrophils % Seg Neuts % (Manual) 71.0 H Lymphocytes % (Manual) 5.0 L Monocytes % (Manual) 12.0 H Eosinophils % (Manual) Basophils % (Manual) Nucleated RBC % Seg Neutrophils # Seg Neutrophils # Man 12.0 H Lymphocytes # (Manual) 0.8 L Monocytes # (Manual) 2.0 H Eosinophils # (Manual) PT INR Fibrinogen dRVVT Confirm Interp Factor V Activity POC ABG pH POC ABG pCO2 POC ABG pO2 Sodium 135 L Potassium Chloride 97.1 L Carbon Dioxide BUN 73 H Creatinine 2.2 H Glucose 117 H POC Glucose 123 H Lactic Acid Calcium Phosphorus 1.70 L Magnesium Direct Bilirubin AST ALT Alkaline Phosphatase Lactate Dehydrogenase Troponin T C-Reactive Protein Total Protein Albumin Prealbumin Triglycerides Cholesterol LDL Cholesterol Direct HDL Cholesterol Urine pH Urine WBC (Auto) Urine Creatinine Urine Total Protein Fluid Total Protein Vancomycin Trough Rheumatoid Factor Complement C4 Miscellaneous Test Crossmatch 10/26/16 10/26/16 10/26/16 12:12 17:29 23:42 WBC RBC Hgb Hct MCV MCH MCHC RDW Plt Count Lymph % (Auto) [place] % (Auto) Lymph # [place] # Baso # Seg Neutrophils % Seg Neuts % (Manual) Lymphocytes % (Manual) Monocytes % (Manual) Eosinophils % (Manual) Basophils % (Manual) Nucleated RBC % Seg Neutrophils # Seg Neutrophils # Man Lymphocytes # (Manual) Monocytes # (Manual) Eosinophils # (Manual) PT INR Fibrinogen dRVVT Confirm Interp Factor V Activity POC ABG pH POC ABG pCO2 POC ABG pO2 Sodium Potassium Chloride Carbon Dioxide BUN Creatinine Glucose POC Glucose 126 H 161 H 118 H Lactic Acid Calcium Phosphorus Magnesium Direct Bilirubin AST ALT Alkaline Phosphatase Lactate Dehydrogenase Troponin T C-Reactive Protein Total Protein Albumin Prealbumin Triglycerides Cholesterol LDL Cholesterol Direct HDL Cholesterol Urine pH Urine WBC (Auto) Urine Creatinine Urine Total Protein Fluid Total Protein Vancomycin Trough Rheumatoid Factor Complement C4 Miscellaneous Test Crossmatch 10/27/16 10/27/16 10/27/16 05:03 06:30 06:30 WBC 13.9 H RBC 3.09 L Hgb 9.2 L Hct 27.5 L MCV MCH MCHC RDW 17.0 H Plt Count Lymph % (Auto) [place] % (Auto) Lymph # [place] # Baso # Seg Neutrophils % Seg Neuts % (Manual) 78.0 H Lymphocytes % (Manual) Monocytes % (Manual) Eosinophils % (Manual) Basophils % (Manual) Nucleated RBC % 2.0 H Seg Neutrophils # Seg Neutrophils # Man 10.8 H Lymphocytes # (Manual) Monocytes # (Manual) 1.0 H Eosinophils # (Manual) PT INR Fibrinogen dRVVT Confirm Interp Factor V Activity POC ABG pH POC ABG pCO2 POC ABG pO2 Sodium Potassium Chloride Carbon Dioxide BUN 40 H Creatinine 1.5 H Glucose 135 H POC Glucose 107 H Lactic Acid Calcium 8.3 L Phosphorus 1.30 L D Magnesium Direct Bilirubin AST ALT Alkaline Phosphatase Lactate Dehydrogenase Troponin T C-Reactive Protein Total Protein Albumin Prealbumin Triglycerides Cholesterol LDL Cholesterol Direct HDL Cholesterol Urine pH Urine WBC (Auto) Urine Creatinine Urine Total Protein Fluid Total Protein Vancomycin Trough Rheumatoid Factor Complement C4 Miscellaneous Test Crossmatch 10/27/16 10/27/16 10/27/16 13:27 18:07 23:40 WBC RBC Hgb Hct MCV MCH MCHC RDW Plt Count Lymph % (Auto) [place] % (Auto) Lymph # [place] # Baso # Seg Neutrophils % Seg Neuts % (Manual) Lymphocytes % (Manual) Monocytes % (Manual) Eosinophils % (Manual) Basophils % (Manual) Nucleated RBC % Seg Neutrophils # Seg Neutrophils # Man Lymphocytes # (Manual) Monocytes # (Manual) Eosinophils # (Manual) PT INR Fibrinogen dRVVT Confirm Interp Factor V Activity POC ABG pH POC ABG pCO2 POC ABG pO2 Sodium Potassium Chloride Carbon Dioxide BUN Creatinine Glucose POC Glucose 117 H 121 H 118 H Lactic Acid Calcium Phosphorus Magnesium Direct Bilirubin AST ALT Alkaline Phosphatase Lactate Dehydrogenase Troponin T C-Reactive Protein Total Protein Albumin Prealbumin Triglycerides Cholesterol LDL Cholesterol Direct HDL Cholesterol Urine pH Urine WBC (Auto) Urine Creatinine Urine Total Protein Fluid Total Protein Vancomycin Trough Rheumatoid Factor Complement C4 Miscellaneous Test Crossmatch 10/28/16 10/28/16 10/28/16 05:48 06:45 06:45 WBC 14.7 H RBC 3.05 L Hgb 9.0 L Hct 26.9 L MCV MCH MCHC RDW 16.8 H Plt Count Lymph % (Auto) 8.2 L [place] % (Auto) 8.4 H Lymph # [place] # 1.2 H Baso # Seg Neutrophils % 81.9 H Seg Neuts % (Manual) Lymphocytes % (Manual) Monocytes % (Manual) Eosinophils % (Manual) Basophils % (Manual) Nucleated RBC % Seg Neutrophils # 12.1 H Seg Neutrophils # Man Lymphocytes # (Manual) Monocytes # (Manual) Eosinophils # (Manual) PT INR Fibrinogen dRVVT Confirm Interp Factor V Activity POC ABG pH POC ABG pCO2 POC ABG pO2 Sodium Potassium Chloride Carbon Dioxide BUN 60 H Creatinine 1.9 H Glucose 120 H POC Glucose 114 H Lactic Acid Calcium Phosphorus Magnesium Direct Bilirubin AST ALT Alkaline Phosphatase Lactate Dehydrogenase Troponin T C-Reactive Protein Total Protein Albumin Prealbumin Triglycerides Cholesterol LDL Cholesterol Direct HDL Cholesterol Urine pH Urine WBC (Auto) Urine Creatinine Urine Total Protein Fluid Total Protein Vancomycin Trough Rheumatoid Factor Complement C4 Miscellaneous Test Crossmatch 10/28/16 10/28/16 10/29/16 17:08 23:50 05:10 WBC RBC Hgb Hct MCV MCH MCHC RDW Plt Count Lymph % (Auto) [place] % (Auto) Lymph # [place] # Baso # Seg Neutrophils % Seg Neuts % (Manual) Lymphocytes % (Manual) Monocytes % (Manual) Eosinophils % (Manual) Basophils % (Manual) Nucleated RBC % Seg Neutrophils # Seg Neutrophils # Man Lymphocytes # (Manual) Monocytes # (Manual) Eosinophils # (Manual) PT INR Fibrinogen dRVVT Confirm Interp Factor V Activity POC ABG pH POC ABG pCO2 POC ABG pO2 Sodium Potassium Chloride Carbon Dioxide BUN Creatinine Glucose POC Glucose 109 H 110 H 124 H Lactic Acid Calcium Phosphorus Magnesium Direct Bilirubin AST ALT Alkaline Phosphatase Lactate Dehydrogenase Troponin T C-Reactive Protein Total Protein Albumin Prealbumin Triglycerides Cholesterol LDL Cholesterol Direct HDL Cholesterol Urine pH Urine WBC (Auto) Urine Creatinine Urine Total Protein Fluid Total Protein Vancomycin Trough Rheumatoid Factor Complement C4 Miscellaneous Test Crossmatch 10/29/16 10/29/16 10/29/16 07:45 07:45 12:19 WBC 14.7 H RBC 3.15 L Hgb 9.3 L Hct 28.9 L MCV MCH MCHC RDW 17.0 H Plt Count Lymph % (Auto) 11.9 L [place] % (Auto) 8.6 H Lymph # [place] # 1.3 H Baso # Seg Neutrophils % 78.1 H Seg Neuts % (Manual) Lymphocytes % (Manual) Monocytes % (Manual) Eosinophils % (Manual) Basophils % (Manual) Nucleated RBC % Seg Neutrophils # 11.4 H Seg Neutrophils # Man Lymphocytes # (Manual) Monocytes # (Manual) Eosinophils # (Manual) PT INR Fibrinogen dRVVT Confirm Interp Factor V Activity POC ABG pH POC ABG pCO2 POC ABG pO2 Sodium Potassium 5.1 H Chloride Carbon Dioxide 19 L BUN 78 H Creatinine 2.2 H Glucose 116 H POC Glucose 118 H Lactic Acid Calcium Phosphorus Magnesium Direct Bilirubin AST ALT Alkaline Phosphatase Lactate Dehydrogenase Troponin T C-Reactive Protein Total Protein Albumin Prealbumin Triglycerides Cholesterol LDL Cholesterol Direct HDL Cholesterol Urine pH Urine WBC (Auto) Urine Creatinine Urine Total Protein Fluid Total Protein Vancomycin Trough Rheumatoid Factor Complement C4 Miscellaneous Test Crossmatch 10/29/16 10/30/16 10/30/16 17:49 01:52 03:28 WBC RBC Hgb Hct MCV MCH MCHC RDW Plt Count Lymph % (Auto) [place] % (Auto) Lymph # [place] # Baso # Seg Neutrophils % Seg Neuts % (Manual) Lymphocytes % (Manual) Monocytes % (Manual) Eosinophils % (Manual) Basophils % (Manual) Nucleated RBC % Seg Neutrophils # Seg Neutrophils # Man Lymphocytes # (Manual) Monocytes # (Manual) Eosinophils # (Manual) PT INR Fibrinogen dRVVT Confirm Interp Factor V Activity POC ABG pH POC ABG pCO2 POC ABG pO2 Sodium Potassium 5.4 H Chloride 97.5 L Carbon Dioxide 19 L BUN 90 H Creatinine 2.5 H Glucose POC Glucose 120 H 129 H Lactic Acid Calcium Phosphorus 5.20 H Magnesium Direct Bilirubin AST ALT Alkaline Phosphatase Lactate Dehydrogenase Troponin T C-Reactive Protein Total Protein Albumin Prealbumin Triglycerides Cholesterol LDL Cholesterol Direct HDL Cholesterol Urine pH Urine WBC (Auto) Urine Creatinine Urine Total Protein Fluid Total Protein Vancomycin Trough Rheumatoid Factor Complement C4 Miscellaneous Test Crossmatch 10/30/16 10/30/16 10/30/16 03:28 08:19 08:19 WBC 11.6 H 15.9 H RBC 2.75 L 2.82 L Hgb 7.9 L 8.3 L Hct 24.2 L 25.2 L MCV MCH MCHC RDW 16.7 H 17.2 H Plt Count Lymph % (Auto) [place] % (Auto) 9.8 H Lymph # [place] # 1.1 H Baso # Seg Neutrophils % 74.2 H Seg Neuts % (Manual) Lymphocytes % (Manual) Monocytes % (Manual) Eosinophils % (Manual) Basophils % (Manual) Nucleated RBC % Seg Neutrophils # 8.6 H Seg Neutrophils # Man Lymphocytes # (Manual) Monocytes # (Manual) Eosinophils # (Manual) PT INR Fibrinogen dRVVT Confirm Interp Factor V Activity POC ABG pH POC ABG pCO2 POC ABG pO2 Sodium Potassium 5.3 H Chloride 97.4 L Carbon Dioxide 19 L BUN 93 H Creatinine 2.6 H Glucose POC Glucose Lactic Acid Calcium Phosphorus Magnesium Direct Bilirubin AST ALT Alkaline Phosphatase Lactate Dehydrogenase Troponin T C-Reactive Protein Total Protein Albumin Prealbumin Triglycerides Cholesterol LDL Cholesterol Direct HDL Cholesterol Urine pH Urine WBC (Auto) Urine Creatinine Urine Total Protein Fluid Total Protein Vancomycin Trough Rheumatoid Factor Complement C4 Miscellaneous Test Crossmatch 10/30/16 10/30/16 10/31/16 17:11 23:56 00:40 WBC RBC Hgb Hct MCV MCH MCHC RDW Plt Count Lymph % (Auto) [place] % (Auto) Lymph # [place] # Baso # Seg Neutrophils % Seg Neuts % (Manual) Lymphocytes % (Manual) Monocytes % (Manual) Eosinophils % (Manual) Basophils % (Manual) Nucleated RBC % Seg Neutrophils # Seg Neutrophils # Man Lymphocytes # (Manual) Monocytes # (Manual) Eosinophils # (Manual) PT INR Fibrinogen dRVVT Confirm Interp Factor V Activity POC ABG pH POC ABG pCO2 POC ABG pO2 Sodium Potassium Chloride Carbon Dioxide BUN Creatinine Glucose POC Glucose 106 H 117 H 120 H Lactic Acid Calcium Phosphorus Magnesium Direct Bilirubin AST ALT Alkaline Phosphatase Lactate Dehydrogenase Troponin T C-Reactive Protein Total Protein Albumin Prealbumin Triglycerides Cholesterol LDL Cholesterol Direct HDL Cholesterol Urine pH Urine WBC (Auto) Urine Creatinine Urine Total Protein Fluid Total Protein Vancomycin Trough Rheumatoid Factor Complement C4 Miscellaneous Test Crossmatch 10/31/16 10/31/16 10/31/16 05:43 07:15 07:15 WBC 12.1 H RBC 2.63 L Hgb 7.7 L Hct 23.3 L MCV MCH MCHC RDW 16.7 H Plt Count Lymph % (Auto) 11.7 L [place] % (Auto) 7.7 H Lymph # [place] # 0.9 H Baso # Seg Neutrophils % 78.0 H Seg Neuts % (Manual) Lymphocytes % (Manual) Monocytes % (Manual) Eosinophils % (Manual) Basophils % (Manual) Nucleated RBC % Seg Neutrophils # 9.4 H Seg Neutrophils # Man Lymphocytes # (Manual) Monocytes # (Manual) Eosinophils # (Manual) PT INR Fibrinogen dRVVT Confirm Interp Factor V Activity POC ABG pH POC ABG pCO2 POC ABG pO2 Sodium Potassium Chloride 96.4 L Carbon Dioxide 21 L BUN 99 H Creatinine 2.6 H Glucose 144 H POC Glucose 125 H Lactic Acid Calcium Phosphorus 4.80 H Magnesium Direct Bilirubin AST ALT Alkaline Phosphatase Lactate Dehydrogenase Troponin T C-Reactive Protein Total Protein Albumin Prealbumin Triglycerides Cholesterol LDL Cholesterol Direct HDL Cholesterol Urine pH Urine WBC (Auto) Urine Creatinine Urine Total Protein Fluid Total Protein Vancomycin Trough Rheumatoid Factor Complement C4 Miscellaneous Test Crossmatch 10/31/16 10/31/16 11/01/16 11:46 18:34 00:20 WBC RBC Hgb Hct MCV MCH MCHC RDW Plt Count Lymph % (Auto) [place] % (Auto) Lymph # [place] # Baso # Seg Neutrophils % Seg Neuts % (Manual) Lymphocytes % (Manual) Monocytes % (Manual) Eosinophils % (Manual) Basophils % (Manual) Nucleated RBC % Seg Neutrophils # Seg Neutrophils # Man Lymphocytes # (Manual) Monocytes # (Manual) Eosinophils # (Manual) PT INR Fibrinogen dRVVT Confirm Interp Factor V Activity POC ABG pH POC ABG pCO2 POC ABG pO2 Sodium Potassium Chloride Carbon Dioxide BUN Creatinine Glucose POC Glucose 159 H 140 H 132 H Lactic Acid Calcium Phosphorus Magnesium Direct Bilirubin AST ALT Alkaline Phosphatase Lactate Dehydrogenase Troponin T C-Reactive Protein Total Protein Albumin Prealbumin Triglycerides Cholesterol LDL Cholesterol Direct HDL Cholesterol Urine pH Urine WBC (Auto) Urine Creatinine Urine Total Protein Fluid Total Protein Vancomycin Trough Rheumatoid Factor Complement C4 Miscellaneous Test Crossmatch 11/01/16 11/01/16 11/01/16 04:55 04:55 06:11 WBC 11.2 H RBC 2.68 L Hgb 7.5 L Hct 23.7 L MCV MCH MCHC RDW 16.1 H Plt Count Lymph % (Auto) [place] % (Auto) 9.8 H Lymph # [place] # 1.1 H Baso # Seg Neutrophils % 70.8 H Seg Neuts % (Manual) Lymphocytes % (Manual) Monocytes % (Manual) Eosinophils % (Manual) Basophils % (Manual) Nucleated RBC % Seg Neutrophils # 7.9 H Seg Neutrophils # Man Lymphocytes # (Manual) Monocytes # (Manual) Eosinophils # (Manual) PT INR Fibrinogen dRVVT Confirm Interp Factor V Activity POC ABG pH POC ABG pCO2 POC ABG pO2 Sodium Potassium 3.3 L D Chloride Carbon Dioxide BUN 61 H Creatinine 1.9 H Glucose 114 H POC Glucose 115 H Lactic Acid Calcium Phosphorus 1.80 L D Magnesium Direct Bilirubin AST ALT Alkaline Phosphatase Lactate Dehydrogenase Troponin T C-Reactive Protein Total Protein Albumin Prealbumin Triglycerides Cholesterol LDL Cholesterol Direct HDL Cholesterol Urine pH Urine WBC (Auto) Urine Creatinine Urine Total Protein Fluid Total Protein Vancomycin Trough Rheumatoid Factor Complement C4 Miscellaneous Test Crossmatch 11/01/16 11/01/16 11/01/16 12:29 18:23 23:58 WBC RBC Hgb Hct MCV MCH MCHC RDW Plt Count Lymph % (Auto) [place] % (Auto) Lymph # [place] # Baso # Seg Neutrophils % Seg Neuts % (Manual) Lymphocytes % (Manual) Monocytes % (Manual) Eosinophils % (Manual) Basophils % (Manual) Nucleated RBC % Seg Neutrophils # Seg Neutrophils # Man Lymphocytes # (Manual) Monocytes # (Manual) Eosinophils # (Manual) PT INR Fibrinogen dRVVT Confirm Interp Factor V Activity POC ABG pH POC ABG pCO2 POC ABG pO2 Sodium Potassium Chloride Carbon Dioxide BUN Creatinine Glucose POC Glucose 142 H 143 H 128 H Lactic Acid Calcium Phosphorus Magnesium Direct Bilirubin AST ALT Alkaline Phosphatase Lactate Dehydrogenase Troponin T C-Reactive Protein Total Protein Albumin Prealbumin Triglycerides Cholesterol LDL Cholesterol Direct HDL Cholesterol Urine pH Urine WBC (Auto) Urine Creatinine Urine Total Protein Fluid Total Protein Vancomycin Trough Rheumatoid Factor Complement C4 Miscellaneous Test Crossmatch 11/02/16 11/02/16 11/02/16 04:16 05:29 11:58 WBC RBC Hgb Hct MCV MCH MCHC RDW Plt Count Lymph % (Auto) [place] % (Auto) Lymph # [place] # Baso # Seg Neutrophils % Seg Neuts % (Manual) Lymphocytes % (Manual) Monocytes % (Manual) Eosinophils % (Manual) Basophils % (Manual) Nucleated RBC % Seg Neutrophils # Seg Neutrophils # Man Lymphocytes # (Manual) Monocytes # (Manual) Eosinophils # (Manual) PT INR Fibrinogen dRVVT Confirm Interp Factor V Activity POC ABG pH POC ABG pCO2 POC ABG pO2 Sodium Potassium 3.1 L Chloride Carbon Dioxide BUN 73 H Creatinine 2.3 H Glucose 112 H POC Glucose 135 H 149 H Lactic Acid Calcium Phosphorus Magnesium Direct Bilirubin AST ALT Alkaline Phosphatase Lactate Dehydrogenase Troponin T C-Reactive Protein Total Protein Albumin Prealbumin Triglycerides Cholesterol LDL Cholesterol Direct HDL Cholesterol Urine pH Urine WBC (Auto) Urine Creatinine Urine Total Protein Fluid Total Protein Vancomycin Trough Rheumatoid Factor Complement C4 Miscellaneous Test Crossmatch 11/02/16 11/02/16 11/03/16 17:42 22:54 06:00 WBC RBC Hgb Hct MCV MCH MCHC RDW Plt Count Lymph % (Auto) [place] % (Auto) Lymph # [place] # Baso # Seg Neutrophils % Seg Neuts % (Manual) Lymphocytes % (Manual) Monocytes % (Manual) Eosinophils % (Manual) Basophils % (Manual) Nucleated RBC % Seg Neutrophils # Seg Neutrophils # Man Lymphocytes # (Manual) Monocytes # (Manual) Eosinophils # (Manual) PT INR Fibrinogen dRVVT Confirm Interp Factor V Activity POC ABG pH POC ABG pCO2 POC ABG pO2 Sodium Potassium Chloride 96.7 L Carbon Dioxide BUN 41 H Creatinine 1.5 H Glucose 145 H POC Glucose 182 H 115 H Lactic Acid Calcium Phosphorus 1.60 L D Magnesium 1.50 L Direct Bilirubin AST ALT Alkaline Phosphatase Lactate Dehydrogenase Troponin T C-Reactive Protein Total Protein Albumin Prealbumin Triglycerides Cholesterol LDL Cholesterol Direct HDL Cholesterol Urine pH Urine WBC (Auto) Urine Creatinine Urine Total Protein Fluid Total Protein Vancomycin Trough Rheumatoid Factor Complement C4 Miscellaneous Test Crossmatch 11/03/16 11/03/16 11/03/16 11:53 17:45 23:37 WBC RBC Hgb Hct MCV MCH MCHC RDW Plt Count Lymph % (Auto) [place] % (Auto) Lymph # [place] # Baso # Seg Neutrophils % Seg Neuts % (Manual) Lymphocytes % (Manual) Monocytes % (Manual) Eosinophils % (Manual) Basophils % (Manual) Nucleated RBC % Seg Neutrophils # Seg Neutrophils # Man Lymphocytes # (Manual) Monocytes # (Manual) Eosinophils # (Manual) PT INR Fibrinogen dRVVT Confirm Interp Factor V Activity POC ABG pH POC ABG pCO2 POC ABG pO2 Sodium Potassium Chloride Carbon Dioxide BUN Creatinine Glucose POC Glucose 131 H 134 H 113 H Lactic Acid Calcium Phosphorus Magnesium Direct Bilirubin AST ALT Alkaline Phosphatase Lactate Dehydrogenase Troponin T C-Reactive Protein Total Protein Albumin Prealbumin Triglycerides Cholesterol LDL Cholesterol Direct HDL Cholesterol Urine pH Urine WBC (Auto) Urine Creatinine Urine Total Protein Fluid Total Protein Vancomycin Trough Rheumatoid Factor Complement C4 Miscellaneous Test Crossmatch 11/04/16 11/04/16 11/04/16 05:41 06:00 12:10 WBC RBC Hgb Hct MCV MCH MCHC RDW Plt Count Lymph % (Auto) [place] % (Auto) Lymph # [place] # Baso # Seg Neutrophils % Seg Neuts % (Manual) Lymphocytes % (Manual) Monocytes % (Manual) Eosinophils % (Manual) Basophils % (Manual) Nucleated RBC % Seg Neutrophils # Seg Neutrophils # Man Lymphocytes # (Manual) Monocytes # (Manual) Eosinophils # (Manual) PT INR Fibrinogen dRVVT Confirm Interp Factor V Activity POC ABG pH POC ABG pCO2 POC ABG pO2 Sodium Potassium Chloride 96.7 L Carbon Dioxide BUN 52 H Creatinine 1.9 H Glucose 126 H POC Glucose 137 H 191 H Lactic Acid Calcium Phosphorus Magnesium Direct Bilirubin AST ALT Alkaline Phosphatase Lactate Dehydrogenase Troponin T C-Reactive Protein Total Protein Albumin Prealbumin Triglycerides Cholesterol LDL Cholesterol Direct HDL Cholesterol Urine pH Urine WBC (Auto) Urine Creatinine Urine Total Protein Fluid Total Protein Vancomycin Trough Rheumatoid Factor Complement C4 Miscellaneous Test Crossmatch 11/04/16 11/05/16 11/05/16 22:57 03:10 05:10 WBC RBC Hgb Hct MCV MCH MCHC RDW Plt Count Lymph % (Auto) [place] % (Auto) Lymph # [place] # Baso # Seg Neutrophils % Seg Neuts % (Manual) Lymphocytes % (Manual) Monocytes % (Manual) Eosinophils % (Manual) Basophils % (Manual) Nucleated RBC % Seg Neutrophils # Seg Neutrophils # Man Lymphocytes # (Manual) Monocytes # (Manual) Eosinophils # (Manual) PT INR Fibrinogen dRVVT Confirm Interp Factor V Activity POC ABG pH POC ABG pCO2 POC ABG pO2 Sodium 136 L Potassium Chloride 97.2 L Carbon Dioxide BUN 32 H Creatinine 1.3 H Glucose 123 H POC Glucose 125 H 108 H Lactic Acid Calcium 7.8 L Phosphorus Magnesium Direct Bilirubin AST ALT Alkaline Phosphatase Lactate Dehydrogenase Troponin T C-Reactive Protein Total Protein Albumin Prealbumin Triglycerides Cholesterol LDL Cholesterol Direct HDL Cholesterol Urine pH Urine WBC (Auto) Urine Creatinine Urine Total Protein Fluid Total Protein Vancomycin Trough Rheumatoid Factor Complement C4 Miscellaneous Test Crossmatch 11/05/16 11/05/16 11/05/16 12:23 13:09 13:25 WBC RBC Hgb Hct MCV MCH MCHC RDW Plt Count Lymph % (Auto) [place] % (Auto) Lymph # [place] # Baso # Seg Neutrophils % Seg Neuts % (Manual) Lymphocytes % (Manual) Monocytes % (Manual) Eosinophils % (Manual) Basophils % (Manual) Nucleated RBC % Seg Neutrophils # Seg Neutrophils # Man Lymphocytes # (Manual) Monocytes # (Manual) Eosinophils # (Manual) PT INR Fibrinogen dRVVT Confirm Interp Factor V Activity POC ABG pH POC ABG pCO2 POC ABG pO2 Sodium Potassium Chloride Carbon Dioxide BUN Creatinine Glucose POC Glucose 124 H Lactic Acid Calcium Phosphorus Magnesium Direct Bilirubin AST ALT Alkaline Phosphatase Lactate Dehydrogenase Troponin T C-Reactive Protein 11.40 H Total Protein Albumin Prealbumin Triglycerides Cholesterol LDL Cholesterol Direct HDL Cholesterol Urine pH 9.0 H Urine WBC (Auto) Urine Creatinine Urine Total Protein Fluid Total Protein Vancomycin Trough Rheumatoid Factor Complement C4 Miscellaneous Test Crossmatch 11/05/16 11/05/16 11/05/16 13:25 17:54 23:42 WBC RBC Hgb Hct MCV MCH MCHC RDW Plt Count Lymph % (Auto) [place] % (Auto) Lymph # [place] # Baso # Seg Neutrophils % Seg Neuts % (Manual) Lymphocytes % (Manual) Monocytes % (Manual) Eosinophils % (Manual) Basophils % (Manual) Nucleated RBC % Seg Neutrophils # Seg Neutrophils # Man Lymphocytes # (Manual) Monocytes # (Manual) Eosinophils # (Manual) PT INR Fibrinogen dRVVT Confirm Interp Factor V Activity POC ABG pH POC ABG pCO2 POC ABG pO2 Sodium Potassium Chloride Carbon Dioxide BUN Creatinine Glucose POC Glucose 114 H 134 H Lactic Acid Calcium Phosphorus Magnesium Direct Bilirubin AST ALT Alkaline Phosphatase Lactate Dehydrogenase Troponin T C-Reactive Protein Total Protein Albumin Prealbumin Triglycerides Cholesterol LDL Cholesterol Direct HDL Cholesterol Urine pH Urine WBC (Auto) Urine Creatinine Urine Total Protein Fluid Total Protein Vancomycin Trough Rheumatoid Factor Complement C4 Miscellaneous Test Flexitest 1 H Crossmatch 11/06/16 11/06/16 11/06/16 04:56 06:25 06:25 WBC RBC 2.50 L Hgb 7.3 L Hct 22.5 L MCV MCH MCHC RDW 16.9 H Plt Count Lymph % (Auto) [place] % (Auto) 10.5 H Lymph # [place] # 1.1 H Baso # Seg Neutrophils % Seg Neuts % (Manual) Lymphocytes % (Manual) Monocytes % (Manual) Eosinophils % (Manual) Basophils % (Manual) Nucleated RBC % Seg Neutrophils # Seg Neutrophils # Man Lymphocytes # (Manual) Monocytes # (Manual) Eosinophils # (Manual) PT INR Fibrinogen dRVVT Confirm Interp Factor V Activity POC ABG pH POC ABG pCO2 POC ABG pO2 Sodium Potassium 5.1 H Chloride 95.9 L Carbon Dioxide BUN 52 H Creatinine 1.8 H Glucose 117 H POC Glucose 120 H Lactic Acid Calcium Phosphorus Magnesium Direct Bilirubin AST 103 H ALT 77 H Alkaline Phosphatase 285 H Lactate Dehydrogenase Troponin T C-Reactive Protein Total Protein 6.2 L Albumin 1.8 L Prealbumin 0.180 L Triglycerides Cholesterol LDL Cholesterol Direct HDL Cholesterol Urine pH Urine WBC (Auto) Urine Creatinine Urine Total Protein Fluid Total Protein Vancomycin Trough Rheumatoid Factor Complement C4 Miscellaneous Test Crossmatch 11/06/16 11/06/16 11/06/16 11:56 17:14 23:52 WBC RBC Hgb Hct MCV MCH MCHC RDW Plt Count Lymph % (Auto) [place] % (Auto) Lymph # [place] # Baso # Seg Neutrophils % Seg Neuts % (Manual) Lymphocytes % (Manual) Monocytes % (Manual) Eosinophils % (Manual) Basophils % (Manual) Nucleated RBC % Seg Neutrophils # Seg Neutrophils # Man Lymphocytes # (Manual) Monocytes # (Manual) Eosinophils # (Manual) PT INR Fibrinogen dRVVT Confirm Interp Factor V Activity POC ABG pH POC ABG pCO2 POC ABG pO2 Sodium Potassium Chloride Carbon Dioxide BUN Creatinine Glucose POC Glucose 141 H 125 H 130 H Lactic Acid Calcium Phosphorus Magnesium Direct Bilirubin AST ALT Alkaline Phosphatase Lactate Dehydrogenase Troponin T C-Reactive Protein Total Protein Albumin Prealbumin Triglycerides Cholesterol LDL Cholesterol Direct HDL Cholesterol Urine pH Urine WBC (Auto) Urine Creatinine Urine Total Protein Fluid Total Protein Vancomycin Trough Rheumatoid Factor Complement C4 Miscellaneous Test Crossmatch 11/07/16 11/07/16 11/07/16 06:30 06:30 09:37 WBC RBC 2.18 L Hgb 6.3 L Hct 19.7 L* MCV MCH MCHC RDW 16.8 H Plt Count Lymph % (Auto) [place] % (Auto) 10.0 H Lymph # [place] # 1.0 H Baso # Seg Neutrophils % Seg Neuts % (Manual) Lymphocytes % (Manual) Monocytes % (Manual) Eosinophils % (Manual) Basophils % (Manual) Nucleated RBC % Seg Neutrophils # Seg Neutrophils # Man Lymphocytes # (Manual) Monocytes # (Manual) Eosinophils # (Manual) PT INR Fibrinogen dRVVT Confirm Interp Factor V Activity POC ABG pH POC ABG pCO2 POC ABG pO2 Sodium 135 L Potassium Chloride 95.6 L Carbon Dioxide BUN 70 H Creatinine 2.0 H Glucose 126 H POC Glucose Lactic Acid Calcium Phosphorus Magnesium Direct Bilirubin AST ALT Alkaline Phosphatase Lactate Dehydrogenase Troponin T C-Reactive Protein Total Protein Albumin Prealbumin Triglycerides Cholesterol LDL Cholesterol Direct HDL Cholesterol Urine pH Urine WBC (Auto) Urine Creatinine Urine Total Protein Fluid Total Protein Vancomycin Trough Rheumatoid Factor Complement C4 Miscellaneous Test Crossmatch See Detail 11/07/16 11/07/16 11/07/16 12:52 18:51 21:26 WBC RBC Hgb Hct MCV MCH MCHC RDW Plt Count Lymph % (Auto) [place] % (Auto) Lymph # [place] # Baso # Seg Neutrophils % Seg Neuts % (Manual) Lymphocytes % (Manual) Monocytes % (Manual) Eosinophils % (Manual) Basophils % (Manual) Nucleated RBC % Seg Neutrophils # Seg Neutrophils # Man Lymphocytes # (Manual) Monocytes # (Manual) Eosinophils # (Manual) PT INR Fibrinogen dRVVT Confirm Interp Factor V Activity POC ABG pH 7.523 H POC ABG pCO2 34.6 L POC ABG pO2 53 L Sodium Potassium Chloride Carbon Dioxide BUN Creatinine Glucose POC Glucose 142 H 155 H Lactic Acid Calcium Phosphorus Magnesium Direct Bilirubin AST ALT Alkaline Phosphatase Lactate Dehydrogenase Troponin T C-Reactive Protein Total Protein Albumin Prealbumin Triglycerides Cholesterol LDL Cholesterol Direct HDL Cholesterol Urine pH Urine WBC (Auto) Urine Creatinine Urine Total Protein Fluid Total Protein Vancomycin Trough Rheumatoid Factor Complement C4 Miscellaneous Test Crossmatch 11/07/16 11/08/16 11/08/16 21:34 13:03 23:37 WBC RBC 2.63 L Hgb 7.7 L Hct 22.7 L MCV MCH MCHC RDW 17.0 H Plt Count Lymph % (Auto) [place] % (Auto) Lymph # [place] # Baso # Seg Neutrophils % Seg Neuts % (Manual) Lymphocytes % (Manual) Monocytes % (Manual) Eosinophils % (Manual) Basophils % (Manual) Nucleated RBC % Seg Neutrophils # Seg Neutrophils # Man Lymphocytes # (Manual) Monocytes # (Manual) Eosinophils # (Manual) PT INR Fibrinogen dRVVT Confirm Interp Factor V Activity POC ABG pH 7.478 H POC ABG pCO2 34.0 L POC ABG pO2 50 L Sodium Potassium Chloride Carbon Dioxide BUN Creatinine Glucose POC Glucose 113 H Lactic Acid Calcium Phosphorus Magnesium Direct Bilirubin AST ALT Alkaline Phosphatase Lactate Dehydrogenase Troponin T C-Reactive Protein Total Protein Albumin Prealbumin Triglycerides Cholesterol LDL Cholesterol Direct HDL Cholesterol Urine pH Urine WBC (Auto) Urine Creatinine Urine Total Protein Fluid Total Protein Vancomycin Trough Rheumatoid Factor Complement C4 Miscellaneous Test Crossmatch 11/09/16 11/09/16 11/09/16 04:35 10:15 18:21 WBC RBC 2.68 L Hgb 7.8 L Hct 23.3 L MCV MCH MCHC RDW 17.0 H Plt Count Lymph % (Auto) [place] % (Auto) 12.1 H Lymph # [place] # 1.1 H Baso # Seg Neutrophils % Seg Neuts % (Manual) Lymphocytes % (Manual) Monocytes % (Manual) Eosinophils % (Manual) Basophils % (Manual) Nucleated RBC % Seg Neutrophils # Seg Neutrophils # Man Lymphocytes # (Manual) Monocytes # (Manual) Eosinophils # (Manual) PT INR Fibrinogen dRVVT Confirm Interp Factor V Activity POC ABG pH POC ABG pCO2 POC ABG pO2 Sodium Potassium Chloride Carbon Dioxide BUN 51 H Creatinine 1.8 H Glucose POC Glucose 60 L Lactic Acid Calcium 8.3 L Phosphorus Magnesium Direct Bilirubin AST ALT Alkaline Phosphatase Lactate Dehydrogenase Troponin T C-Reactive Protein Total Protein Albumin Prealbumin Triglycerides Cholesterol LDL Cholesterol Direct HDL Cholesterol Urine pH Urine WBC (Auto) Urine Creatinine Urine Total Protein Fluid Total Protein Vancomycin Trough Rheumatoid Factor Complement C4 Miscellaneous Test Crossmatch 11/09/16 11/10/16 11/10/16 18:55 07:00 11:51 WBC RBC Hgb Hct MCV MCH MCHC RDW Plt Count Lymph % (Auto) [place] % (Auto) Lymph # [place] # Baso # Seg Neutrophils % Seg Neuts % (Manual) Lymphocytes % (Manual) Monocytes % (Manual) Eosinophils % (Manual) Basophils % (Manual) Nucleated RBC % Seg Neutrophils # Seg Neutrophils # Man Lymphocytes # (Manual) Monocytes # (Manual) Eosinophils # (Manual) PT INR Fibrinogen dRVVT Confirm Interp Factor V Activity POC ABG pH POC ABG pCO2 POC ABG pO2 Sodium Potassium 3.0 L D Chloride 97.4 L Carbon Dioxide BUN 28 H Creatinine 1.3 H Glucose POC Glucose 68 L 120 H Lactic Acid Calcium 7.8 L Phosphorus Magnesium Direct Bilirubin AST ALT Alkaline Phosphatase Lactate Dehydrogenase Troponin T C-Reactive Protein Total Protein Albumin Prealbumin Triglycerides Cholesterol LDL Cholesterol Direct HDL Cholesterol Urine pH Urine WBC (Auto) Urine Creatinine Urine Total Protein Fluid Total Protein Vancomycin Trough Rheumatoid Factor Complement C4 Miscellaneous Test Crossmatch 11/10/16 11/11/16 11/11/16 14:20 06:59 06:59 WBC RBC 2.81 L Hgb 8.1 L Hct 24.4 L MCV MCH MCHC RDW 16.4 H Plt Count Lymph % (Auto) [place] % (Auto) 10.8 H Lymph # [place] # 1.0 H Baso # Seg Neutrophils % Seg Neuts % (Manual) Lymphocytes % (Manual) Monocytes % (Manual) Eosinophils % (Manual) Basophils % (Manual) Nucleated RBC % Seg Neutrophils # Seg Neutrophils # Man Lymphocytes # (Manual) Monocytes # (Manual) Eosinophils # (Manual) PT INR Fibrinogen dRVVT Confirm Interp Factor V Activity POC ABG pH POC ABG pCO2 POC ABG pO2 Sodium Potassium Chloride Carbon Dioxide BUN Creatinine Glucose POC Glucose Lactic Acid Calcium Phosphorus Magnesium Direct Bilirubin AST ALT Alkaline Phosphatase Lactate Dehydrogenase 196 H Troponin T C-Reactive Protein Total Protein 6.1 L Albumin Prealbumin Triglycerides Cholesterol LDL Cholesterol Direct HDL Cholesterol Urine pH Urine WBC (Auto) Urine Creatinine Urine Total Protein Fluid Total Protein < 3.0 L Vancomycin Trough Rheumatoid Factor Complement C4 Miscellaneous Test Crossmatch 11/11/16 11/11/16 11/12/16 06:59 09:50 04:00 WBC RBC Hgb Hct MCV MCH MCHC RDW Plt Count Lymph % (Auto) [place] % (Auto) Lymph # [place] # Baso # Seg Neutrophils % Seg Neuts % (Manual) Lymphocytes % (Manual) Monocytes % (Manual) Eosinophils % (Manual) Basophils % (Manual) Nucleated RBC % Seg Neutrophils # Seg Neutrophils # Man Lymphocytes # (Manual) Monocytes # (Manual) Eosinophils # (Manual) PT INR 1.18 H Fibrinogen dRVVT Confirm Interp Factor V Activity POC ABG pH POC ABG pCO2 POC ABG pO2 Sodium 136 L 133 L Potassium Chloride 96.1 L 94.8 L Carbon Dioxide 21 L BUN 37 H 42 H Creatinine 1.8 H 2.0 H Glucose POC Glucose Lactic Acid Calcium Phosphorus Magnesium Direct Bilirubin AST ALT Alkaline Phosphatase Lactate Dehydrogenase Troponin T C-Reactive Protein Total Protein Albumin Prealbumin Triglycerides Cholesterol LDL Cholesterol Direct HDL Cholesterol Urine pH Urine WBC (Auto) Urine Creatinine Urine Total Protein Fluid Total Protein Vancomycin Trough Rheumatoid Factor Complement C4 Miscellaneous Test Crossmatch 11/12/16 11/12/16 11/13/16 04:00 23:55 05:53 WBC RBC Hgb 8.9 L Hct 27.2 L MCV MCH MCHC RDW Plt Count Lymph % (Auto) [place] % (Auto) Lymph # [place] # Baso # Seg Neutrophils % Seg Neuts % (Manual) Lymphocytes % (Manual) Monocytes % (Manual) Eosinophils % (Manual) Basophils % (Manual) Nucleated RBC % Seg Neutrophils # Seg Neutrophils # Man Lymphocytes # (Manual) Monocytes # (Manual) Eosinophils # (Manual) PT INR Fibrinogen dRVVT Confirm Interp Factor V Activity POC ABG pH POC ABG pCO2 POC ABG pO2 Sodium Potassium Chloride Carbon Dioxide BUN Creatinine Glucose POC Glucose 132 H 120 H Lactic Acid Calcium Phosphorus Magnesium Direct Bilirubin AST ALT Alkaline Phosphatase Lactate Dehydrogenase Troponin T C-Reactive Protein Total Protein Albumin Prealbumin Triglycerides Cholesterol LDL Cholesterol Direct HDL Cholesterol Urine pH Urine WBC (Auto) Urine Creatinine Urine Total Protein Fluid Total Protein Vancomycin Trough Rheumatoid Factor Complement C4 Miscellaneous Test Crossmatch 11/13/16 11/13/16 11/13/16 11:43 17:09 23:41 WBC RBC Hgb Hct MCV MCH MCHC RDW Plt Count Lymph % (Auto) [place] % (Auto) Lymph # [place] # Baso # Seg Neutrophils % Seg Neuts % (Manual) Lymphocytes % (Manual) Monocytes % (Manual) Eosinophils % (Manual) Basophils % (Manual) Nucleated RBC % Seg Neutrophils # Seg Neutrophils # Man Lymphocytes # (Manual) Monocytes # (Manual) Eosinophils # (Manual) PT INR Fibrinogen dRVVT Confirm Interp Factor V Activity POC ABG pH POC ABG pCO2 POC ABG pO2 Sodium Potassium Chloride Carbon Dioxide BUN Creatinine Glucose POC Glucose 114 H 113 H 108 H Lactic Acid Calcium Phosphorus Magnesium Direct Bilirubin AST ALT Alkaline Phosphatase Lactate Dehydrogenase Troponin T C-Reactive Protein Total Protein Albumin Prealbumin Triglycerides Cholesterol LDL Cholesterol Direct HDL Cholesterol Urine pH Urine WBC (Auto) Urine Creatinine Urine Total Protein Fluid Total Protein Vancomycin Trough Rheumatoid Factor Complement C4 Miscellaneous Test Crossmatch 11/13/16 11/15/16 11/15/16 Unknown 00:37 03:30 WBC 11.2 H RBC 2.72 L Hgb 7.6 L Hct 23.4 L MCV MCH MCHC RDW 16.5 H Plt Count Lymph % (Auto) [place] % (Auto) Lymph # [place] # Baso # Seg Neutrophils % Seg Neuts % (Manual) Lymphocytes % (Manual) Monocytes % (Manual) Eosinophils % (Manual) Basophils % (Manual) Nucleated RBC % Seg Neutrophils # Seg Neutrophils # Man Lymphocytes # (Manual) Monocytes # (Manual) Eosinophils # (Manual) PT INR Fibrinogen dRVVT Confirm Interp Factor V Activity POC ABG pH POC ABG pCO2 POC ABG pO2 Sodium 135 L Potassium Chloride 95.2 L Carbon Dioxide BUN 52 H Creatinine 2.2 H Glucose POC Glucose 108 H Lactic Acid Calcium Phosphorus Magnesium Direct Bilirubin AST ALT Alkaline Phosphatase Lactate Dehydrogenase Troponin T C-Reactive Protein Total Protein Albumin Prealbumin Triglycerides Cholesterol LDL Cholesterol Direct HDL Cholesterol Urine pH Urine WBC (Auto) Urine Creatinine Urine Total Protein Fluid Total Protein Vancomycin Trough Rheumatoid Factor Complement C4 Miscellaneous Test Crossmatch 11/15/16 11/15/16 11/15/16 03:30 05:04 11:50 WBC RBC Hgb Hct MCV MCH MCHC RDW Plt Count Lymph % (Auto) [place] % (Auto) Lymph # [place] # Baso # Seg Neutrophils % Seg Neuts % (Manual) Lymphocytes % (Manual) Monocytes % (Manual) Eosinophils % (Manual) Basophils % (Manual) Nucleated RBC % Seg Neutrophils # Seg Neutrophils # Man Lymphocytes # (Manual) Monocytes # (Manual) Eosinophils # (Manual) PT INR Fibrinogen dRVVT Confirm Interp Factor V Activity POC ABG pH POC ABG pCO2 POC ABG pO2 Sodium Potassium 3.4 L Chloride Carbon Dioxide BUN 25 H Creatinine 1.5 H Glucose 103 H POC Glucose 121 H 144 H Lactic Acid Calcium Phosphorus Magnesium Direct Bilirubin AST ALT Alkaline Phosphatase Lactate Dehydrogenase Troponin T C-Reactive Protein Total Protein Albumin Prealbumin Triglycerides Cholesterol LDL Cholesterol Direct HDL Cholesterol Urine pH Urine WBC (Auto) Urine Creatinine Urine Total Protein Fluid Total Protein Vancomycin Trough Rheumatoid Factor Complement C4 Miscellaneous Test Crossmatch 11/15/16 11/15/16 11/16/16 21:28 23:20 11:44 WBC RBC Hgb Hct MCV MCH MCHC RDW Plt Count Lymph % (Auto) [place] % (Auto) Lymph # [place] # Baso # Seg Neutrophils % Seg Neuts % (Manual) Lymphocytes % (Manual) Monocytes % (Manual) Eosinophils % (Manual) Basophils % (Manual) Nucleated RBC % Seg Neutrophils # Seg Neutrophils # Man Lymphocytes # (Manual) Monocytes # (Manual) Eosinophils # (Manual) PT INR Fibrinogen dRVVT Confirm Interp Factor V Activity POC ABG pH 7.462 H POC ABG pCO2 POC ABG pO2 71 L Sodium Potassium Chloride Carbon Dioxide BUN Creatinine Glucose POC Glucose 116 H 133 H Lactic Acid Calcium Phosphorus Magnesium Direct Bilirubin AST ALT Alkaline Phosphatase Lactate Dehydrogenase Troponin T C-Reactive Protein Total Protein Albumin Prealbumin Triglycerides Cholesterol LDL Cholesterol Direct HDL Cholesterol Urine pH Urine WBC (Auto) Urine Creatinine Urine Total Protein Fluid Total Protein Vancomycin Trough Rheumatoid Factor Complement C4 Miscellaneous Test Crossmatch 11/16/16 11/16/16 11/16/16 12:20 17:05 23:35 WBC 11.7 H RBC 2.73 L Hgb 7.6 L Hct 23.7 L MCV MCH MCHC RDW 16.6 H Plt Count Lymph % (Auto) [place] % (Auto) Lymph # [place] # Baso # Seg Neutrophils % Seg Neuts % (Manual) Lymphocytes % (Manual) Monocytes % (Manual) Eosinophils % (Manual) Basophils % (Manual) Nucleated RBC % Seg Neutrophils # Seg Neutrophils # Man Lymphocytes # (Manual) Monocytes # (Manual) Eosinophils # (Manual) PT INR Fibrinogen dRVVT Confirm Interp Factor V Activity POC ABG pH POC ABG pCO2 POC ABG pO2 Sodium Potassium Chloride Carbon Dioxide BUN Creatinine Glucose POC Glucose 154 H 125 H Lactic Acid Calcium Phosphorus Magnesium Direct Bilirubin AST ALT Alkaline Phosphatase Lactate Dehydrogenase Troponin T C-Reactive Protein Total Protein Albumin Prealbumin Triglycerides Cholesterol LDL Cholesterol Direct HDL Cholesterol Urine pH Urine WBC (Auto) Urine Creatinine Urine Total Protein Fluid Total Protein Vancomycin Trough Rheumatoid Factor Complement C4 Miscellaneous Test Crossmatch 11/17/16 11/17/16 11/17/16 03:20 03:20 03:20 WBC RBC 2.55 L Hgb 7.3 L Hct 21.9 L MCV MCH MCHC RDW 16.6 H Plt Count Lymph % (Auto) [place] % (Auto) 11.5 H Lymph # [place] # 1.1 H Baso # Seg Neutrophils % Seg Neuts % (Manual) Lymphocytes % (Manual) Monocytes % (Manual) Eosinophils % (Manual) Basophils % (Manual) Nucleated RBC % Seg Neutrophils # Seg Neutrophils # Man Lymphocytes # (Manual) Monocytes # (Manual) Eosinophils # (Manual) PT 16.8 H INR 1.37 H Fibrinogen dRVVT Confirm Interp Factor V Activity POC ABG pH POC ABG pCO2 POC ABG pO2 Sodium Potassium 3.5 L Chloride Carbon Dioxide BUN 21 H Creatinine Glucose POC Glucose Lactic Acid Calcium 7.9 L Phosphorus Magnesium Direct Bilirubin AST ALT Alkaline Phosphatase Lactate Dehydrogenase Troponin T C-Reactive Protein Total Protein Albumin Prealbumin Triglycerides Cholesterol LDL Cholesterol Direct HDL Cholesterol Urine pH Urine WBC (Auto) Urine Creatinine Urine Total Protein Fluid Total Protein Vancomycin Trough Rheumatoid Factor Complement C4 Miscellaneous Test Crossmatch 11/17/16 11/17/16 11/17/16 06:34 11:21 21:22 WBC RBC Hgb Hct MCV MCH MCHC RDW Plt Count Lymph % (Auto) [place] % (Auto) Lymph # [place] # Baso # Seg Neutrophils % Seg Neuts % (Manual) Lymphocytes % (Manual) Monocytes % (Manual) Eosinophils % (Manual) Basophils % (Manual) Nucleated RBC % Seg Neutrophils # Seg Neutrophils # Man Lymphocytes # (Manual) Monocytes # (Manual) Eosinophils # (Manual) PT INR Fibrinogen dRVVT Confirm Interp Factor V Activity POC ABG pH 7.467 H POC ABG pCO2 POC ABG pO2 73 L Sodium Potassium Chloride Carbon Dioxide BUN Creatinine Glucose POC Glucose 121 H 119 H Lactic Acid Calcium Phosphorus Magnesium Direct Bilirubin AST ALT Alkaline Phosphatase Lactate Dehydrogenase Troponin T C-Reactive Protein Total Protein Albumin Prealbumin Triglycerides Cholesterol LDL Cholesterol Direct HDL Cholesterol Urine pH Urine WBC (Auto) Urine Creatinine Urine Total Protein Fluid Total Protein Vancomycin Trough Rheumatoid Factor Complement C4 Miscellaneous Test Crossmatch 11/18/16 11/18/16 11/19/16 12:16 17:19 00:00 WBC RBC Hgb Hct MCV MCH MCHC RDW Plt Count Lymph % (Auto) [place]th % (Auto) Lymph # [place]th # Baso # Seg Neutrophils % Seg Neuts % (Manual) Lymphocytes % (Manual) Monocytes % (Manual) Eosinophils % (Manual) Basophils % (Manual) Nucleated RBC % Seg Neutrophils # Seg Neutrophils # Man Lymphocytes # (Manual) Monocytes # (Manual) Eosinophils # (Manual) PT INR Fibrinogen dRVVT Confirm Interp Factor V Activity POC ABG pH POC ABG pCO2 POC ABG pO2 Sodium Potassium Chloride Carbon Dioxide BUN Creatinine Glucose POC Glucose 124 H 162 H 139 H Lactic Acid Calcium Phosphorus Magnesium Direct Bilirubin AST ALT Alkaline Phosphatase Lactate Dehydrogenase Troponin T C-Reactive Protein Total Protein Albumin Prealbumin Triglycerides Cholesterol LDL Cholesterol Direct HDL Cholesterol Urine pH Urine WBC (Auto) Urine Creatinine Urine Total Protein Fluid Total Protein Vancomycin Trough Rheumatoid Factor Complement C4 Miscellaneous Test Crossmatch 11/19/16 11/19/16 11/20/16 05:00 12:43 00:40 WBC RBC Hgb Hct MCV MCH MCHC RDW Plt Count Lymph % (Auto) [place]th % (Auto) Lymph # [place] # Baso # Seg Neutrophils % Seg Neuts % (Manual) Lymphocytes % (Manual) Monocytes % (Manual) Eosinophils % (Manual) Basophils % (Manual) Nucleated RBC % Seg Neutrophils # Seg Neutrophils # Man Lymphocytes # (Manual) Monocytes # (Manual) Eosinophils # (Manual) PT INR Fibrinogen dRVVT Confirm Interp Factor V Activity POC ABG pH POC ABG pCO2 POC ABG pO2 Sodium Potassium Chloride Carbon Dioxide BUN Creatinine Glucose POC Glucose 110 H 125 H 136 H Lactic Acid Calcium Phosphorus Magnesium Direct Bilirubin AST ALT Alkaline Phosphatase Lactate Dehydrogenase Troponin T C-Reactive Protein Total Protein Albumin Prealbumin Triglycerides Cholesterol LDL Cholesterol Direct HDL Cholesterol Urine pH Urine WBC (Auto) Urine Creatinine Urine Total Protein Fluid Total Protein Vancomycin Trough Rheumatoid Factor Complement C4 Miscellaneous Test Crossmatch 11/20/16 11/20/16 11/20/16 05:00 05:00 05:51 WBC 13.1 H RBC 2.74 L Hgb 7.7 L Hct 23.6 L MCV MCH MCHC RDW 16.9 H Plt Count Lymph % (Auto) [place] % (Auto) 10.8 H Lymph # [place] # 1.4 H Baso # Seg Neutrophils % Seg Neuts % (Manual) Lymphocytes % (Manual) Monocytes % (Manual) Eosinophils % (Manual) Basophils % (Manual) Nucleated RBC % Seg Neutrophils # 7.9 H Seg Neutrophils # Man Lymphocytes # (Manual) Monocytes # (Manual) Eosinophils # (Manual) PT INR Fibrinogen dRVVT Confirm Interp Factor V Activity POC ABG pH POC ABG pCO2 POC ABG pO2 Sodium Potassium Chloride Carbon Dioxide BUN 31 H Creatinine 1.8 H Glucose 129 H POC Glucose 133 H Lactic Acid Calcium Phosphorus Magnesium Direct Bilirubin AST ALT Alkaline Phosphatase Lactate Dehydrogenase Troponin T C-Reactive Protein Total Protein Albumin Prealbumin Triglycerides Cholesterol LDL Cholesterol Direct HDL Cholesterol Urine pH Urine WBC (Auto) Urine Creatinine Urine Total Protein Fluid Total Protein Vancomycin Trough Rheumatoid Factor Complement C4 Miscellaneous Test Crossmatch 11/20/16 11/20/16 11/21/16 12:40 18:10 01:20 WBC RBC Hgb Hct MCV MCH MCHC RDW Plt Count Lymph % (Auto) [place] % (Auto) Lymph # [place] # Baso # Seg Neutrophils % Seg Neuts % (Manual) Lymphocytes % (Manual) Monocytes % (Manual) Eosinophils % (Manual) Basophils % (Manual) Nucleated RBC % Seg Neutrophils # Seg Neutrophils # Man Lymphocytes # (Manual) Monocytes # (Manual) Eosinophils # (Manual) PT INR Fibrinogen dRVVT Confirm Interp Factor V Activity POC ABG pH POC ABG pCO2 POC ABG pO2 Sodium Potassium Chloride Carbon Dioxide BUN Creatinine Glucose POC Glucose 134 H 138 H 136 H Lactic Acid Calcium Phosphorus Magnesium Direct Bilirubin AST ALT Alkaline Phosphatase Lactate Dehydrogenase Troponin T C-Reactive Protein Total Protein Albumin Prealbumin Triglycerides Cholesterol LDL Cholesterol Direct HDL Cholesterol Urine pH Urine WBC (Auto) Urine Creatinine Urine Total Protein Fluid Total Protein Vancomycin Trough Rheumatoid Factor Complement C4 Miscellaneous Test Crossmatch 11/21/16 11/21/16 11/21/16 07:04 07:45 07:45 WBC 22.0 H RBC 2.91 L Hgb 8.2 L Hct 25.4 L MCV MCH MCHC RDW 17.1 H Plt Count Lymph % (Auto) [place] % (Auto) Lymph # [place] # Baso # Seg Neutrophils % Seg Neuts % (Manual) Lymphocytes % (Manual) 8.0 L Monocytes % (Manual) Eosinophils % (Manual) Basophils % (Manual) Nucleated RBC % Seg Neutrophils # Seg Neutrophils # Man 14.7 H Lymphocytes # (Manual) Monocytes # (Manual) 1.1 H Eosinophils # (Manual) PT INR Fibrinogen dRVVT Confirm Interp Factor V Activity POC ABG pH POC ABG pCO2 POC ABG pO2 Sodium Potassium Chloride Carbon Dioxide BUN 42 H Creatinine 2.0 H Glucose POC Glucose 108 H Lactic Acid Calcium Phosphorus Magnesium Direct Bilirubin AST ALT Alkaline Phosphatase Lactate Dehydrogenase Troponin T C-Reactive Protein Total Protein Albumin Prealbumin Triglycerides Cholesterol LDL Cholesterol Direct HDL Cholesterol Urine pH Urine WBC (Auto) Urine Creatinine Urine Total Protein Fluid Total Protein Vancomycin Trough Rheumatoid Factor Complement C4 Miscellaneous Test Crossmatch 11/21/16 11/21/16 11/21/16 08:38 10:09 11:20 WBC RBC Hgb Hct MCV MCH MCHC RDW Plt Count Lymph % (Auto) [place] % (Auto) Lymph # [place] # Baso # Seg Neutrophils % Seg Neuts % (Manual) Lymphocytes % (Manual) Monocytes % (Manual) Eosinophils % (Manual) Basophils % (Manual) Nucleated RBC % Seg Neutrophils # Seg Neutrophils # Man Lymphocytes # (Manual) Monocytes # (Manual) Eosinophils # (Manual) PT INR Fibrinogen dRVVT Confirm Interp Factor V Activity POC ABG pH 7.346 L POC ABG pCO2 34.4 L POC ABG pO2 314 H Sodium Potassium Chloride Carbon Dioxide BUN Creatinine Glucose POC Glucose 195 H 153 H Lactic Acid Calcium Phosphorus Magnesium Direct Bilirubin AST ALT Alkaline Phosphatase Lactate Dehydrogenase Troponin T C-Reactive Protein Total Protein Albumin Prealbumin Triglycerides Cholesterol LDL Cholesterol Direct HDL Cholesterol Urine pH Urine WBC (Auto) Urine Creatinine Urine Total Protein Fluid Total Protein Vancomycin Trough Rheumatoid Factor Complement C4 Miscellaneous Test Crossmatch 11/21/16 11/22/16 11/22/16 23:37 04:48 05:00 WBC 29.7 H RBC 2.73 L Hgb 7.5 L Hct 24.2 L MCV MCH 27 L MCHC RDW 17.4 H Plt Count Lymph % (Auto) [place] % (Auto) Lymph # [place] # Baso # Seg Neutrophils % Seg Neuts % (Manual) Lymphocytes % (Manual) 7.0 L Monocytes % (Manual) Eosinophils % (Manual) Basophils % (Manual) Nucleated RBC % Seg Neutrophils # Seg Neutrophils # Man 15.4 H Lymphocytes # (Manual) Monocytes # (Manual) Eosinophils # (Manual) PT INR Fibrinogen dRVVT Confirm Interp Factor V Activity POC ABG pH POC ABG pCO2 24.6 L POC ABG pO2 189 H Sodium Potassium Chloride Carbon Dioxide BUN Creatinine Glucose POC Glucose 65 L Lactic Acid Calcium Phosphorus Magnesium Direct Bilirubin AST ALT Alkaline Phosphatase Lactate Dehydrogenase Troponin T C-Reactive Protein Total Protein Albumin Prealbumin Triglycerides Cholesterol LDL Cholesterol Direct HDL Cholesterol Urine pH Urine WBC (Auto) Urine Creatinine Urine Total Protein Fluid Total Protein Vancomycin Trough Rheumatoid Factor Complement C4 Miscellaneous Test Crossmatch 11/22/16 11/23/16 11/23/16 05:00 03:44 04:06 WBC RBC 2.52 L Hgb 7.2 L Hct 21.5 L MCV MCH MCHC RDW 17.1 H Plt Count Lymph % (Auto) [place] % (Auto) 12.4 H Lymph # [place] # 1.4 H Baso # Seg Neutrophils % Seg Neuts % (Manual) Lymphocytes % (Manual) Monocytes % (Manual) Eosinophils % (Manual) Basophils % (Manual) Nucleated RBC % Seg Neutrophils # Seg Neutrophils # Man Lymphocytes # (Manual) Monocytes # (Manual) Eosinophils # (Manual) PT INR Fibrinogen dRVVT Confirm Interp Factor V Activity POC ABG pH 7.493 H POC ABG pCO2 29.5 L POC ABG pO2 49 L Sodium 134 L Potassium Chloride 95.9 L Carbon Dioxide 14 L D BUN 51 H Creatinine 2.6 H Glucose POC Glucose Lactic Acid Calcium Phosphorus Magnesium Direct Bilirubin AST ALT Alkaline Phosphatase Lactate Dehydrogenase Troponin T C-Reactive Protein Total Protein Albumin Prealbumin Triglycerides Cholesterol LDL Cholesterol Direct HDL Cholesterol Urine pH Urine WBC (Auto) Urine Creatinine Urine Total Protein Fluid Total Protein Vancomycin Trough Rheumatoid Factor Complement C4 Miscellaneous Test Crossmatch 11/23/16 11/23/16 11/24/16 04:06 11:29 06:39 WBC RBC Hgb Hct MCV MCH MCHC RDW Plt Count Lymph % (Auto) [place] % (Auto) Lymph # [place] # Baso # Seg Neutrophils % Seg Neuts % (Manual) Lymphocytes % (Manual) Monocytes % (Manual) Eosinophils % (Manual) Basophils % (Manual) Nucleated RBC % Seg Neutrophils # Seg Neutrophils # Man Lymphocytes # (Manual) Monocytes # (Manual) Eosinophils # (Manual) PT INR Fibrinogen dRVVT Confirm Interp Factor V Activity POC ABG pH POC ABG pCO2 POC ABG pO2 Sodium 136 L Potassium Chloride 95.2 L Carbon Dioxide BUN 60 H Creatinine 2.9 H Glucose POC Glucose 69 L 305 H Lactic Acid Calcium Phosphorus Magnesium 1.60 L Direct Bilirubin AST ALT Alkaline Phosphatase Lactate Dehydrogenase Troponin T C-Reactive Protein Total Protein Albumin Prealbumin Triglycerides Cholesterol LDL Cholesterol Direct HDL Cholesterol Urine pH Urine WBC (Auto) Urine Creatinine Urine Total Protein Fluid Total Protein Vancomycin Trough Rheumatoid Factor Complement C4 Miscellaneous Test Crossmatch 11/24/16 11/24/16 11/24/16 06:43 08:08 08:08 WBC 11.2 H RBC 2.47 L Hgb 6.8 L Hct 20.6 L MCV MCH MCHC RDW 17.0 H Plt Count Lymph % (Auto) [place] % (Auto) 10.3 H Lymph # [place] # 1.2 H Baso # Seg Neutrophils % Seg Neuts % (Manual) Lymphocytes % (Manual) Monocytes % (Manual) Eosinophils % (Manual) Basophils % (Manual) Nucleated RBC % Seg Neutrophils # Seg Neutrophils # Man Lymphocytes # (Manual) Monocytes # (Manual) Eosinophils # (Manual) PT INR Fibrinogen dRVVT Confirm Interp Factor V Activity POC ABG pH POC ABG pCO2 POC ABG pO2 Sodium 135 L Potassium Chloride 96.3 L Carbon Dioxide BUN 61 H Creatinine 3.1 H Glucose POC Glucose 62 L Lactic Acid Calcium 8.2 L Phosphorus Magnesium Direct Bilirubin AST ALT Alkaline Phosphatase Lactate Dehydrogenase Troponin T C-Reactive Protein Total Protein Albumin Prealbumin Triglycerides Cholesterol LDL Cholesterol Direct HDL Cholesterol Urine pH Urine WBC (Auto) Urine Creatinine Urine Total Protein Fluid Total Protein Vancomycin Trough Rheumatoid Factor Complement C4 Miscellaneous Test Crossmatch 11/24/16 11/24/16 11/24/16 08:34 11:20 12:41 WBC RBC Hgb Hct MCV MCH MCHC RDW Plt Count Lymph % (Auto) [place] % (Auto) Lymph # [place] # Baso # Seg Neutrophils % Seg Neuts % (Manual) Lymphocytes % (Manual) Monocytes % (Manual) Eosinophils % (Manual) Basophils % (Manual) Nucleated RBC % Seg Neutrophils # Seg Neutrophils # Man Lymphocytes # (Manual) Monocytes # (Manual) Eosinophils # (Manual) PT INR Fibrinogen dRVVT Confirm Interp Factor V Activity POC ABG pH POC ABG pCO2 POC ABG pO2 Sodium Potassium Chloride Carbon Dioxide BUN Creatinine Glucose POC Glucose 108 H Lactic Acid Calcium Phosphorus Magnesium 1.60 L Direct Bilirubin AST ALT Alkaline Phosphatase Lactate Dehydrogenase Troponin T C-Reactive Protein Total Protein Albumin Prealbumin Triglycerides Cholesterol LDL Cholesterol Direct HDL Cholesterol Urine pH Urine WBC (Auto) Urine Creatinine Urine Total Protein Fluid Total Protein Vancomycin Trough Rheumatoid Factor Complement C4 Miscellaneous Test Crossmatch See Detail 11/25/16 11/25/16 11/25/16 00:03 04:42 04:42 WBC RBC 3.03 L Hgb 8.6 L Hct 25.3 L MCV MCH MCHC RDW 16.2 H Plt Count Lymph % (Auto) [place] % (Auto) 8.1 H Lymph # [place] # Baso # Seg Neutrophils % 71.3 H Seg Neuts % (Manual) Lymphocytes % (Manual) Monocytes % (Manual) Eosinophils % (Manual) Basophils % (Manual) Nucleated RBC % Seg Neutrophils # Seg Neutrophils # Man Lymphocytes # (Manual) Monocytes # (Manual) Eosinophils # (Manual) PT INR Fibrinogen dRVVT Confirm Interp Factor V Activity POC ABG pH POC ABG pCO2 POC ABG pO2 Sodium Potassium Chloride Carbon Dioxide BUN 61 H Creatinine 3.0 H Glucose 102 H POC Glucose 113 H Lactic Acid Calcium 8.2 L Phosphorus Magnesium Direct Bilirubin AST ALT Alkaline Phosphatase 142 H Lactate Dehydrogenase Troponin T C-Reactive Protein Total Protein 5.7 L Albumin 1.5 L Prealbumin Triglycerides Cholesterol LDL Cholesterol Direct HDL Cholesterol Urine pH Urine WBC (Auto) Urine Creatinine Urine Total Protein Fluid Total Protein Vancomycin Trough Rheumatoid Factor Complement C4 Miscellaneous Test Crossmatch 11/25/16 05:12 WBC RBC Hgb Hct MCV MCH MCHC RDW Plt Count Lymph % (Auto) [place] % (Auto) Lymph # [place] # Baso # Seg Neutrophils % Seg Neuts % (Manual) Lymphocytes % (Manual) Monocytes % (Manual) Eosinophils % (Manual) Basophils % (Manual) Nucleated RBC % Seg Neutrophils # Seg Neutrophils # Man Lymphocytes # (Manual) Monocytes # (Manual) Eosinophils # (Manual) PT INR Fibrinogen dRVVT Confirm Interp Factor V Activity POC ABG pH POC ABG pCO2 POC ABG pO2 Sodium Potassium Chloride Carbon Dioxide BUN Creatinine Glucose POC Glucose 131 H Lactic Acid Calcium Phosphorus Magnesium Direct Bilirubin AST ALT Alkaline Phosphatase Lactate Dehydrogenase Troponin T C-Reactive Protein Total Protein Albumin Prealbumin Triglycerides Cholesterol LDL Cholesterol Direct HDL Cholesterol Urine pH Urine WBC (Auto) Urine Creatinine Urine Total Protein Fluid Total Protein Vancomycin Trough Rheumatoid Factor Complement C4 Miscellaneous Test Crossmatch Chest x-ray: image reviewed (bilateral pleural effusions) Allied health notes reviewed: RT
--- NOTE | 2016-11-25 10:26 | Progress Note ---
Assessment and Plan Assessment and plan: Patient is 46-year-old woman with a history of hypertension, diabetes, asthma, hyperlipidemia, chronic kidney disease and anxiety , who was brought in by family because, she couldn't get her words out, her face was also twisted, she was admitted for acute CVA and accelerated hypertension, she had a hx of poor adherence with her medications, and uncontrolled htn. Patient's SBP on admission was noted be greater than 260. TPA was started but this was discontinued after 5 minutes because her blood pressure became uncontrolled. The TPA was not initiated again because the patient was outside the TPA window. Status post cardiac arrest , 11/21 Received CPR and was resuscitated. Fever She continues to have fevers. ID Physician has been following on and off. Re-consulted ID Physician. She is following. Now on Vancomycin Catheter site was growing multiple organisms, and she had completed Antibiotics s/p R thoracentesis on 11/14, 240cc of serous fluid removed, cx of fluid was negative Stool negative for C. difficile -Severe Sepsis with septic shock, recurrent. Patient with multiple episodes of sepsis. Initial episode due to presumed aspiration pneumonia and septic episode on 09/23 from candidemia then a third episode from peritonitis from gastric perforation from dislodged PEG , there was an abscess in the abdomen present at that time that was draining pus. +/-UTI. The latest episode was related to surgical site infection. Antibiotics discontinued Surgical wound infection/gram-negative sepsis/candidemia/peritonitis PEG has been removed She will need to be on tube feeds through NG tube for a month, and then either a gastrostomy or jejunostomy tube replaced after her GI wounds have healed and infection is cleared -continue wound care to ostomy sites JUANITA, now ESRD Likely due to vasomotor nephropathy and ATN given sepsis Nephrology input appreciated, continue hemodialysis as per Nephrolog Acute CVA with infarct. sp TPA Continue neuro checks. Neurology input appreciated, CT shows continued evolution of left MCA infarct with slight mass effect and edema, and there is no hemorrhage - PRINCE showed hyperdynamic with ef of 75%, neither clot nor septal defect seen - MRA Brain shows near complete occlusion of M2 and M3 of the left MCA - Repeat CT scan done on 09/11, shows stable findings - carotid doppler negative - Echo shows preserved systolic function but does show some left ventricular diastolic dysfunction - continue asa and statin for secondary ppx Persistent vegetative state This patient's needs placement at SNF -She was denied for LTACH Acute hypoxic respiratory failure requiring MV >96hrs Status post tracheostomy, was on T piece now put back on Vent yesterday after cardiac arrest Nosocomial acquired aspiration pneumonia/sepsis/UTI She had completed a course of antibiotics. Asthma/COPD exacerbation Now has trach Acute Toxic Metabolic encephalopathy. Multitifactorial, mostly secondary to evolution of CVA Hypertensive Emergency continue BP meds Bilateral pleural effusion, s/p right thoracentesis 11/14 fluid analysis cw transudate Paroxysmal atrial fibrillation with rapid ventricular rate and hyper-coaguable state , failed cardioversion Continue current medications, Not a candidate for anticoagulation secondary to anemia, thrombocytopenia, and massive CVA Hypokalemia/Hypomagnesemia/hypophosphatemia. Replete electrolytes as needed. magnesium 2.2 today after repletion. Diabetes type 2. Continue sliding-scale regular insulin and Accu-Cheks. Hyperlipidemia. Continue statin Nutrition continue tube feeds Anemia requiring multiple transfusions/acute blood loss Has received total 14 units of PRBC this admission. Will continue to transfuse to keep Hemoglobin above 7 Hemoglobin 8.6 today. Her POA is her Brother, Jam [phone] Hospitalist discussed code status and very poor prognosis with family, but they still want full code status Disposition. Very poor prognosis. Plan is for SNF placement when stable She was denied by LTAC The high probability of a clinically significant, sudden or life threatening deterioration of the [4] system(s) required my full and direct attention, intervention and personal management. The aggregate critical care time was [33] minutes. This time is in addition to time spent performing reported procedures but includes the following: [x] Data Review and interpretation [x] Patient assessment and monitoring of vital signs [x] Documentation [x] Medication orders and management History Interval history: Patient has had a prolonged stay. She had cardiac arrest 4 days ago,was resuscitated and then transferred to ICU Still having fever, had fever 102.9 about 4am Hospitalist Physical - Physical exam Narrative exam: Gen appearance: Trach, not in acute distress, on Ventilator HEENT: Atraumatic Neck: Tracheostomy Lungs: Coarse breath sounds bilaterally, no crackles or wheezes Heart :S1 and S2 irregular, rapid,no murmurs, rubs or gallop Abdomen: Soft, non tender, nod distended, ostomy bags, bowel sounds present Extremities : bilateral edema, upper and lower ext Neuro: Eyes open, Does not follow commands,no purposeful movement - Constitutional Vitals: Temp Pulse Resp BP Pulse Ox 98.7 F 137 H 18 168/89 100 11/25/16 08:00 11/25/16 08:15 11/25/16 08:15 11/25/16 08:15 11/25/16 06:45 General appearance: Present: no acute distress Results - Labs CBC & Chem 7: 11/25/16 04:42 11/25/16 04:42 Labs: Laboratory Last Values WBC 9.2 K/mm3 (4.5-11.0) 11/25/16 04:42 RBC 3.03 M/mm3 (3.65-5.03) L 11/25/16 04:42 Hgb 8.6 gm/dl (10.1-14.3) L 11/25/16 04:42 Hct 25.3 % (30.3-42.9) L 11/25/16 04:42 MCV 84 fl (79-97) 11/25/16 04:42 MCH 28 pg (28-32) 11/25/16 04:42 MCHC 34 % (30-34) 11/25/16 04:42 RDW 16.2 % (13.2-15.2) H 11/25/16 04:42 Plt Count 267 K/mm3 (140-440) 11/25/16 04:42 Lymph % (Auto) 20.3 % (13.4-35.0) 11/25/16 04:42 [place] % (Auto) 8.1 % (0.0-7.3) H 11/25/16 04:42 Eos % (Auto) 0.1 % (0.0-4.3) 11/25/16 04:42 Baso % (Auto) 0.2 % (0.0-1.8) 11/25/16 04:42 Lymph # 1.9 K/mm3 (1.2-5.4) 11/25/16 04:42 [place] # 0.7 K/mm3 (0.0-0.8) 11/25/16 04:42 Eos # 0.0 K/mm3 (0.0-0.4) 11/25/16 04:42 Baso # 0.0 K/mm3 (0.0-0.1) 11/25/16 04:42 Add Manual Diff Complete 11/22/16 05:00 Total Counted 100 11/22/16 05:00 Seg Neutrophils % 71.3 % (40.0-70.0) H 11/25/16 04:42 Seg Neuts % (Manual) 52.0 % (40.0-70.0) 11/22/16 05:00 Band Neutrophils % 37.0 % 11/22/16 05:00 Lymphocytes % (Manual) 7.0 % (13.4-35.0) L 11/22/16 05:00 Reactive Lymphs % (Man) 0 % 11/22/16 05:00 Monocytes % (Manual) 0 % (0.0-7.3) 11/22/16 05:00 Eosinophils % (Manual) 1.0 % (0.0-4.3) 11/22/16 05:00 Basophils % (Manual) 0 % (0.0-1.8) 11/21/16 07:45 Metamyelocytes % 1.0 % 11/22/16 05:00 Myelocytes % 2.0 % 11/22/16 05:00 Promyelocytes % 0 % 11/22/16 05:00 Blast Cells % 0 % 11/22/16 05:00 Nucleated RBC % Not Reportable 11/22/16 05:00 Seg Neutrophils # 6.5 K/mm3 (1.8-7.7) 11/25/16 04:42 Seg Neutrophils # Man 15.4 K/mm3 (1.8-7.7) H 11/22/16 05:00 Band Neutrophils # 11.0 K/mm3 11/22/16 05:00 Lymphocytes # (Manual) 2.1 K/mm3 (1.2-5.4) 11/22/16 05:00 Abs React Lymphs (Man) 0.0 K/mm3 11/22/16 05:00 Monocytes # (Manual) 0.0 K/mm3 (0.0-0.8) 11/22/16 05:00 Eosinophils # (Manual) 0.3 K/mm3 (0.0-0.4) 11/22/16 05:00 Basophils # (Manual) 0.0 K/mm3 (0.0-0.1) 11/22/16 05:00 Metamyelocytes # 0.3 K/mm3 11/22/16 05:00 Myelocytes # 0.6 K/mm3 11/22/16 05:00 Promyelocytes # 0.0 K/mm3 11/22/16 05:00 Blast Cells # 0.0 K/mm3 11/22/16 05:00 Pathologist Review 09/13/16 04:00 WBC Morphology Not Reportable 11/22/16 05:00 Hypersegmented Neuts Not Reportable 11/22/16 05:00 Hyposegmented Neuts Not Reportable 11/22/16 05:00 Hypogranular Neuts Not Reportable 11/22/16 05:00 Smudge Cells Not Reportable 11/22/16 05:00 Toxic Granulation Not Reportable 11/22/16 05:00 Toxic Vacuolation Not Reportable 11/22/16 05:00 Dohle Bodies Not Reportable 11/22/16 05:00 Pelger-Huet Anomaly Not Reportable 11/22/16 05:00 Jasmina Rods Not Reportable 11/22/16 05:00 Platelet Estimate Not Reportable 11/22/16 05:00 Clumped Platelets Not Reportable 11/22/16 05:00 Plt Clumps, EDTA Not Reportable 11/22/16 05:00 Large Platelets Not Reportable 11/22/16 05:00 Giant Platelets Not Reportable 11/22/16 05:00 Platelet Satelliting Not Reportable 11/22/16 05:00 Plt Morphology Comment Not Reportable 11/22/16 05:00 RBC Morphology Not Reportable 11/22/16 05:00 Dimorphic RBCs Not Reportable 11/22/16 05:00 Polychromasia Few 11/22/16 05:00 Hypochromasia Not Reportable 11/22/16 05:00 Poikilocytosis Not Reportable 11/22/16 05:00 Anisocytosis Not Reportable 11/22/16 05:00 Microcytosis Not Reportable 11/22/16 05:00 Macrocytosis Not Reportable 11/22/16 05:00 Spherocytes Not Reportable 11/22/16 05:00 Pappenheimer Bodies Not Reportable 11/22/16 05:00 Sickle Cells Not Reportable 11/22/16 05:00 Target Cells Not Reportable 11/22/16 05:00 Tear Drop Cells Not Reportable 11/22/16 05:00 Ovalocytes Not Reportable 11/22/16 05:00 Stomatocytes Few 10/06/16 03:50 Helmet Cells Not Reportable 11/22/16 05:00 [place] Bodies Not Reportable 11/22/16 05:00 [place] Rings Not Reportable 11/22/16 05:00 Chuck Cells Not Reportable 11/22/16 05:00 Bite Cells Not Reportable 11/22/16 05:00 Crenated Cell Not Reportable 11/22/16 05:00 Elliptocytes Not Reportable 11/22/16 05:00 Acanthocytes (Spur) Not Reportable 11/22/16 05:00 Rouleaux Not Reportable 11/22/16 05:00 Hemoglobin C Crystals Not Reportable 11/22/16 05:00 Schistocytes Not Reportable 11/22/16 05:00 Malaria parasites Not Reportable 11/22/16 05:00 ESR > 140.0 mm/Hr (0-20) 09/08/16 11:48 Jun Bodies Not Reportable 11/22/16 05:00 Hem Pathologist Commnt No 11/22/16 05:00 PT 16.8 Sec. (12.2-14.9) H 11/17/16 03:20 INR 1.37 (0.87-1.13) H 11/17/16 03:20 APTT 33.0 Sec. (24.2-36.6) 10/09/16 03:45 Thrombin Time 16.8 Sec. (15.1-19.6) 09/03/16 00:10 Fibrinogen 750 mg/dl (211-480) H 09/08/16 11:48 Lupus Anticoagulant see below 09/12/16 09:59 LA PTT Baseline See scanned report 09/12/16 09:59 dRVVT Confirm Interp Positive (Negative) H 09/12/16 09:59 dRVVT Screen 50:50 See scanned report 09/12/16 09:59 dRVVT Mix Interpret See scanned report 09/12/16 09:59 Protein C Antigen 122 % (70-140) 09/08/16 15:35 Free Protein S 97 % normal (50-147) 09/08/16 15:35 Total Protein S 109 % (70-140) 09/08/16 15:35 Antithrombin III Ag 100 % (80-120) 09/08/16 15:35 Heparin Anti-Xa, Unfract Negative (Negative) 09/29/16 13:35 Factor V Activity 182 % (65-150) H 09/08/16 15:35 POC ABG pH 7.493 (7.35-7.45) H 11/23/16 03:44 POC ABG pCO2 29.5 (35-45) L 11/23/16 03:44 POC ABG pO2 49 (80-105) L 11/23/16 03:44 POC ABG HCO3 22.7 11/23/16 03:44 POC ABG Total CO2 24 11/23/16 03:44 POC ABG O2 Sat 88 11/23/16 03:44 POC ABG Base Excess -1 11/23/16 03:44 FiO2 40 % 11/23/16 03:44 Sodium 135 mmol/L (137-145) L 11/24/16 08:08 Potassium 3.7 mmol/L (3.6-5.0) 11/24/16 08:08 Chloride 96.3 mmol/L (98-107) L 11/24/16 08:08 Carbon Dioxide 23 mmol/L (22-30) 11/25/16 04:42 Anion Gap 21 mmol/L 11/25/16 04:42 BUN 61 mg/dL (7-17) H 11/25/16 04:42 Creatinine 3.0 mg/dL (0.7-1.2) H 11/25/16 04:42 Estimated GFR 20 ml/min 11/25/16 04:42 BUN/Creatinine Ratio 20 % 11/25/16 04:42 Glucose 102 mg/dL (65-100) H 11/25/16 04:42 POC Glucose 131 (70-105) H 11/25/16 05:12 Osmolality 351 Mosm/kg 09/16/16 11:47 Lactic Acid 4.50 mmol/L (0.7-2.0) H* 09/28/16 07:25 Calcium 8.2 mg/dL (8.4-10.2) L 11/25/16 04:42 Phosphorus 3.00 mg/dL (2.5-4.5) 11/25/16 04:42 Magnesium 2.20 mg/dL (1.7-2.3) 11/25/16 04:42 Total Bilirubin 0.60 mg/dL (0.1-1.2) 11/25/16 04:42 Direct Bilirubin 0.3 mg/dL (0-0.2) H 10/10/16 05:00 Indirect Bilirubin 0.1 mg/dL 10/10/16 05:00 AST 19 units/L (5-40) 11/25/16 04:42 ALT 15 units/L (7-56) 11/25/16 04:42 Alkaline Phosphatase 142 units/L (35-129) H 11/25/16 04:42 Ammonia 27.0 umol/L (25-60) 09/07/16 08:37 Lactate Dehydrogenase 196 units/L (91-180) H 11/11/16 06:59 Total Creatine Kinase 121 units/L (30-135) 09/29/16 20:12 CK-MB (CK-2) < 1.0 ng/mL (0.0-4.0) 09/29/16 20:12 CK-MB (CK-2) Rel Index 0.8 (0-4) 09/29/16 20:12 Troponin T 0.204 ng/mL (0.00-0.029) H* 09/29/16 20:12 C-Reactive Protein 11.40 mg/dL (0.00-1.30) H 11/05/16 13:25 Total Protein 5.7 g/dL (6.3-8.2) L 11/25/16 04:42 Albumin 1.5 g/dL (3.9-5) L 11/25/16 04:42 Albumin/Globulin Ratio 0.4 % 11/25/16 04:42 Prealbumin 0.180 g/L (0.200-0.400) L 11/06/16 06:25 Triglycerides 137 mg/dL (2-149) 09/29/16 20:12 Cholesterol 31 mg/dL (50-199) L 09/29/16 20:12 LDL Cholesterol Direct 4 mg/dL (50-130) L 09/29/16 20:12 HDL Cholesterol 3 mg/dL (40-59) L 09/29/16 20:12 Cholesterol/HDL Ratio 10.33 % 09/29/16 20:12 Angiotensin Convert Enz See scanned report 09/08/16 11:48 Renin 0.99 ng/mL/h (0.25-5.82) 10/07/16 10:56 Aldosterone <1 ng/dL () 10/07/16 10:56 Aldosterone/Renin Dir see below 10/07/16 10:56 Serotonin Release Assay See scanned report 09/29/16 13:35 TSH 1.010 mlU/mL (0.270-4.200) 09/07/16 08:37 HCG, Qual Negative (Negative) 09/03/16 00:10 Urine Color Yellow (Yellow) 11/05/16 13:09 Urine Turbidity Clear (Clear) 11/05/16 13:09 Urine pH 9.0 (5.0-7.0) H 11/05/16 13:09 Ur Specific [place] 1.011 (1.003-1.030) 11/05/16 13:09 Urine Protein 100 mg/dl mg/dL (Negative) 11/05/16 13:09 Urine Glucose (UA) Neg mg/dL (Negative) 11/05/16 13:09 Urine Ketones Neg mg/dL (Negative) 11/05/16 13:09 Urine Blood Neg (Negative) 11/05/16 13:09 Urine Nitrite Neg (Negative) 11/05/16 13:09 Urine Bilirubin Neg (Negative) 11/05/16 13:09 Urine Urobilinogen < 2.0 mg/dL (<2.0) 11/05/16 13:09 Ur Leukocyte Esterase Neg (Negative) 11/05/16 13:09 Urine WBC (Auto) 4.0 /HPF (0.0-6.0) 11/05/16 13:09 Urine RBC (Auto) 1.0 /HPF (0.0-6.0) 11/05/16 13:09 U Epithel Cells (Auto) 1.0 /HPF (0-13.0) 10/07/16 18:30 Urine Bacteria (Auto) 4+ /HPF (Negative) 11/05/16 13:09 Urine WBC Clumps 2+ /HPF 09/07/16 02:47 Hyaline Casts 4 /LPF 09/07/16 02:47 Urine Mucus Few /HPF 10/07/16 18:30 Urine Yeast (Budding) 3+ /HPF 10/07/16 18:30 Urine Eosinophils None seen (None Seen) 09/07/16 16:00 Urine Total Volume 950 11/12/16 10:18 Urine Creatinine 19.7 mg/dL (0.1-20.0) 11/12/16 10:18 Height (in) 65.0 inches 11/12/16 10:18 Weight (lb) 181.0 lbs 11/12/16 10:18 Creatinine Clearance 5 11/12/16 10:18 Urine Sodium 36 mEq/L 09/16/16 19:19 Urine Total Protein 16 mg/dL (5-11.8) H 09/16/16 19:19 Fluid Total Protein < 3.0 (15.0-45.0) L 11/10/16 14:20 Fluid LDH 123 11/10/16 14:20 Vancomycin Trough 2.3 ug/mL (5.0-20.0) L 09/21/16 13:00 Random Vancomycin 16.0 ug/mL (0-40.0) 11/25/16 04:42 Urine Opiates Screen Presumptive negative 09/03/16 15:11 Urine Methadone Screen Presumptive positive 09/03/16 15:11 Ur Barbiturates Screen Presumptive positive 09/03/16 15:11 Ur Phencyclidine Scrn Presumptive negative 09/03/16 15:11 Ur Amphetamines Screen Presumptive negative 09/03/16 15:11 U Benzodiazepines Scrn Presumptive negative 09/03/16 15:11 Urine Cocaine Screen Presumptive negative 09/03/16 15:11 U Marijuana (THC) Screen Presumptive positive 09/03/16 15:11 Drugs of Abuse Note Disclamer 09/03/16 15:11 Rheumatoid Factor 24 IU/ml (0-13) H 09/08/16 11:48 SAHIL Screen Negative (Negative) 09/07/16 09:20 Proteinase 3 (PR3) Ab <1.0 AI (<1.0) 09/07/16 09:20 Myeloperoxidase Ab <1.0 AI (<1.0) 09/07/16 09:20 Sjogren's Antibody <1.0 AI (<1.0) 09/08/16 15:35 Scl-70 Scleroderma Ab <1.0 AI (<1.0) 09/08/16 15:35 Centromere B Antibody <1.0 AI (<1.0) 09/08/16 12:02 Heparin-induced Plt Ab Negative (Negative) 09/29/16 13:35 UF Heparin High Dose 11 % Release 09/29/16 13:35 SUDHIR UFH Low Dose 0.1 6 % Release 09/29/16 13:35 SUDHIR UFH Low Dose 0.5 8 % Release 09/29/16 13:35 Cardiolipid IgG Ab <14 GPL (<=14) 09/12/16 09:59 Cardiolipid IgA Ab <11 APL (<=11) 09/12/16 09:59 Cardiolipid IgM Ab <12 MPL (<=12) 09/12/16 09:59 Complement C3 148 mg/dL (90-180) 09/07/16 09:20 Complement C4 58 mg/dL (16-47) H 09/07/16 09:20 RPR Nonreactive (Nonreactive) 09/08/16 11:48 Hepatitis A IgM Ab Non-reactive (NonReactive) 09/24/16 14:40 Hep Bs Antigen Non-reactive (Negative) 09/24/16 14:40 Hep B Core IgM Ab Non-reactive (NonReactive) 09/24/16 14:40 Hepatitis C Antibody Non-reactive (NonReactive) 09/24/16 14:40 HIV 1&2 Antibody Rapid Non react (Non React) 09/08/16 11:48 HIV P24 Antigen Non react (Non React) 09/08/16 11:48 Miscellaneous Test Flexitest 1 H 11/05/16 13:25 Blood Type A POSITIVE 11/24/16 11:20 Antibody Screen TNR 11/24/16 11:20 DELORIS Antibody Screen Negative 11/24/16 11:20 Crossmatch See Detail 11/24/16 11:20
[2016-11-25] MEDS: HEPARIN SUB-Q SCH ×2 (11:00→22:40)
[2016-11-25] MEDS ORDERED: NACL 0.9% 100 ML IV PRN (11:26)
--- NOTE | 2016-11-25 11:37 | Progress Note ---
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 shift * Acute hypoxic respiratory failure * Left renal artery stenosis * Metabolic acidosis - improved * Anemia * Hyponatremia - multifactorial * tachycardia Plan: * Patient blood pressure is stable today. She is currently off pressors. * Shall attempt hemodialysis today. Currently she has PPN infusing through one of her PermCath ports. She does have a peripheral line. To be switched over to her peripheral line for now * monitor for renal recovery * Rate control per cardiology * Dose medications for renal function * Avoid potential nephrotoxins Subjective Date of service: 11/25/16 Principal diagnosis: Acute resp failure on MVS; S/P Acute CVA; Acute Encephalopathy; JUANITA Interval history: Patient remains in the ICU. Unresponsive. She is currently off pressors. PPN infusing through one of the ports of her PermCath Objective - Vital Signs Vital signs: Vital Signs - 12hr 11/24/16 11/25/16 11/25/16 23:45 00:01 00:07 Temperature Pulse Rate 153 H 159 H Pulse Rate [ 144 H From Monitor] Respiratory 24 25 H Rate Blood Pressure 177/103 175/100 O2 Sat by Pulse 95 95 97 Oximetry O2 Sat by Pulse Oximetry [ Assessment] 11/25/16 11/25/16 11/25/16 00:15 00:30 00:45 Temperature Pulse Rate 160 H 159 H 154 H Pulse Rate [ From Monitor] Respiratory 26 H 25 H 24 Rate Blood Pressure 175/100 172/91 172/91 O2 Sat by Pulse 96 96 95 Oximetry O2 Sat by Pulse Oximetry [ Assessment] 11/25/16 11/25/16 11/25/16 00:53 00:57 01:01 Temperature Pulse Rate 128 H 156 H Pulse Rate [ From Monitor] Respiratory 25 H Rate Blood Pressure 172/91 174/90 O2 Sat by Pulse 100 96 Oximetry O2 Sat by Pulse 100 Oximetry [ Assessment] 11/25/16 11/25/16 11/25/16 01:15 01:31 01:45 Temperature Pulse Rate 152 H 151 H 153 H Pulse Rate [ From Monitor] Respiratory 24 23 25 H Rate Blood Pressure 174/90 174/94 174/94 O2 Sat by Pulse 97 96 97 Oximetry O2 Sat by Pulse Oximetry [ Assessment] 11/25/16 11/25/16 11/25/16 02:00 02:15 02:31 Temperature Pulse Rate 152 H 155 H 157 H Pulse Rate [ From Monitor] Respiratory 24 25 H 26 H Rate Blood Pressure 174/94 171/94 167/95 O2 Sat by Pulse 97 97 97 Oximetry O2 Sat by Pulse Oximetry [ Assessment] 11/25/16 11/25/16 11/25/16 02:45 03:00 03:15 Temperature Pulse Rate 156 H 147 H 152 H Pulse Rate [ From Monitor] Respiratory 24 18 23 Rate Blood Pressure 167/95 136/76 136/76 O2 Sat by Pulse 97 99 99 Oximetry O2 Sat by Pulse Oximetry [ Assessment] 11/25/16 11/25/16 11/25/16 03:31 03:45 03:52 Temperature 102.9 F H Pulse Rate 154 H 150 H Pulse Rate [ From Monitor] Respiratory 26 H 19 Rate Blood Pressure 179/94 179/94 O2 Sat by Pulse 99 99 Oximetry O2 Sat by Pulse Oximetry [ Assessment] 11/25/16 11/25/16 11/25/16 04:00 04:15 04:30 Temperature Pulse Rate 149 H 148 H 152 H Pulse Rate [ From Monitor] Respiratory 22 19 19 Rate Blood Pressure 176/91 176/91 164/97 O2 Sat by Pulse 99 99 99 Oximetry O2 Sat by Pulse Oximetry [ Assessment] 11/25/16 11/25/16 11/25/16 04:31 04:40 04:43 Temperature Pulse Rate Pulse Rate [ 137 H From Monitor] Respiratory 19 22 Rate Blood Pressure O2 Sat by Pulse 99 Oximetry O2 Sat by Pulse Oximetry [ Assessment] 11/25/16 11/25/16 11/25/16 04:44 04:45 04:54 Temperature Pulse Rate 157 H 145 H 148 H Pulse Rate [ From Monitor] Respiratory 18 Rate Blood Pressure 167/95 164/97 136/76 O2 Sat by Pulse 99 Oximetry O2 Sat by Pulse Oximetry [ Assessment] 11/25/16 11/25/16 11/25/16 05:00 05:13 05:15 Temperature Pulse Rate 148 H 147 H Pulse Rate [ From Monitor] Respiratory 19 18 19 Rate Blood Pressure 141/83 141/83 O2 Sat by Pulse 99 99 Oximetry O2 Sat by Pulse Oximetry [ Assessment] 1011/25/16 11/25/16 05:17 05:30 05:31 Temperature Pulse Rate 149 H 143 H Pulse Rate [ From Monitor] Respiratory 18 18 Rate Blood Pressure 141/83 124/69 O2 Sat by Pulse 99 99 Oximetry O2 Sat by Pulse Oximetry [ Assessment] 11/25/16 11/25/16 11/25/16 05:45 06:00 06:15 Temperature Pulse Rate 145 H 139 H 144 H Pulse Rate [ From Monitor] Respiratory 18 18 18 Rate Blood Pressure 124/69 114/68 114/68 O2 Sat by Pulse 100 99 99 Oximetry O2 Sat by Pulse Oximetry [ Assessment] 11/25/16 11/25/16 11/25/16 06:31 06:45 07:01 Temperature Pulse Rate 144 H 146 H 143 H Pulse Rate [ From Monitor] Respiratory 18 17 22 Rate Blood Pressure 137/79 114/68 140/94 O2 Sat by Pulse 100 100 Oximetry O2 Sat by Pulse Oximetry [ Assessment] 11/25/16 11/25/16 11/25/16 07:15 07:31 07:45 Temperature Pulse Rate 138 H 135 H 140 H Pulse Rate [ From Monitor] Respiratory 15 17 18 Rate Blood Pressure 140/94 140/94 140/94 O2 Sat by Pulse Oximetry O2 Sat by Pulse Oximetry [ Assessment] 11/25/16 11/25/16 08:00 08:15 Temperature 98.7 F Pulse Rate 140 H 137 H Pulse Rate [ 132 H From Monitor] Respiratory 18 18 Rate Blood Pressure 168/89 168/89 O2 Sat by Pulse Oximetry O2 Sat by Pulse Oximetry [ Assessment] - General Appearance General appearance: well-developed, well-nourished, appears stated age EENT: PERRL, mucous membranes moist Neck: no JVD, other (left IJ PermCath in place) Respiratory: Present: Ronchi (bilateral scattered rhonchi) Cardiology: regular, normal heart rate Gastrointestinal: normal, normoactive bowel sounds Integumentary: other (2+ pitting edema) - Lab 11/25/16 04:42 11/25/16 04:42 Most recent lab results Calcium 8.2 mg/dL (8.4-10.2) L 11/25/16 04:42 Phosphorus 3.00 mg/dL (2.5-4.5) 11/25/16 04:42 Magnesium 2.20 mg/dL (1.7-2.3) 11/25/16 04:42 Urine Creatinine 19.7 mg/dL (0.1-20.0) 11/12/16 10:18 Urine Sodium 36 mEq/L 09/16/16 19:19 Urine Total Protein 16 mg/dL (5-11.8) H 09/16/16 19:19
[2016-11-25] MEDS: DIOVAN FEEDTUBE SCH (12:11)
[2016-11-25] MEDS: APRESOLINE PO SCH (12:11)
[2016-11-25] MEDS: NORVASC PO SCH (12:11)
[2016-11-25] MEDS: PROTONIX FEEDTUBE SCH (12:12)
[2016-11-25] MEDS: QUESTRAN PO SCH (13:07)
[2016-11-25] MEDS: APRESOLINE IV SCH ×3 (14:30→20:37)
[2016-11-25] MEDS: DURAGESIC TD SCH (14:31)
[2016-11-25] MEDS ORDERED: VANCOMYCIN/NS 1 GM/250 ML 1 GM/250 ML BAG IV ONE (16:00)
[2016-11-25] MEDS: HEPARIN IV PRN (19:07)
[2016-11-25] MEDS ORDERED: TPN ADULT 2,016 ML IV SCH (20:00)
[2016-11-26] MEDS: HumuLIN R SUB-Q SCH ×3 (00:24→12:28)
[2016-11-26] MEDS: APRESOLINE IV SCH ×5 (01:45→17:57)
[2016-11-26] MEDS: MORPHINE IV PRN ×2 (03:25→17:58)
[2016-11-26 05:48] LABS: Basophils % (Auto) 0.4 % (0.0-1.8); Eosinophils # (Auto) 0.1 K/mm3 (0.0-0.4); Eosinophils % (Auto) 0.6 % (0.0-4.3); Hematocrit 24.6 % (30.3-42.9); Hemoglobin 8.4 gm/dl (10.1-14.3); Lymphocytes # (Auto) 1.5 K/mm3 (1.2-5.4); Mean Corpuscular HGB Conc 34 % (30-34); Mean Corpuscular Hemoglobin 29 pg (28-32); Mean Corpuscular Volume 84 fl (79-97); Monocytes # (Auto) 1.1 K/mm3 (0.0-0.8); Monocytes % (Auto) 12.3 % (0.0-7.3); Platelet Count 221 K/mm3 (140-440); Red Blood Count 2.94 M/mm3 (3.65-5.03); Red Cell Distribution Width 16.4 % (13.2-15.2)
[2016-11-26 06:07] LABS: Calcium 7.9 mg/dL (8.4-10.2)
--- NOTE | 2016-11-26 08:20 | Progress Note ---
Assessment and Plan Assessment and plan: Patient is 46-year-old woman with a history of hypertension, diabetes, asthma, hyperlipidemia, chronic kidney disease and anxiety , who was brought in by family because, she couldn't get her words out, her face was also twisted, she was admitted for acute CVA and accelerated hypertension, she had a hx of poor adherence with her medications, and uncontrolled htn. Patient's SBP on admission was noted be greater than 260. TPA was started but this was discontinued after 5 minutes because her blood pressure became uncontrolled. The TPA was not initiated again because the patient was outside the TPA window. Status post cardiac arrest , 11/21/16 Received CPR and was resuscitated. Fever She continues to have fevers. ID Physician has been following on and off. Re-consulted ID Physician. She is following. Now on Vancomycin Catheter site was growing multiple organisms, and she had completed Antibiotics s/p R thoracentesis on 11/14, 240cc of serous fluid removed, cx of fluid was negative Stool negative for C. difficile -Severe Sepsis with septic shock, recurrent. Patient with multiple episodes of sepsis. Initial episode due to presumed aspiration pneumonia and septic episode on 09/23 from candidemia then a third episode from peritonitis from gastric perforation from dislodged PEG , there was an abscess in the abdomen present at that time that was draining pus. +/-UTI. The latest episode was related to surgical site infection. Antibiotics discontinued Surgical wound infection/gram-negative sepsis/candidemia/peritonitis PEG has been removed She will need to be on tube feeds through NG tube for a month, and then either a gastrostomy or jejunostomy tube replaced after her GI wounds have healed and infection is cleared -continue wound care to ostomy sites JUANITA, now ESRD Likely due to vasomotor nephropathy and ATN given sepsis Nephrology input appreciated, continue hemodialysis as per Nephrolog Acute CVA with infarct. sp TPA Continue neuro checks. Neurology input appreciated, CT shows continued evolution of left MCA infarct with slight mass effect and edema, and there is no hemorrhage - PRINCE showed hyperdynamic with ef of 75%, neither clot nor septal defect seen - MRA Brain shows near complete occlusion of M2 and M3 of the left MCA - Repeat CT scan done on 09/11, shows stable findings - carotid doppler negative - Echo shows preserved systolic function but does show some left ventricular diastolic dysfunction - continue asa and statin Persistent vegetative state This patient's needs placement at SNF -She was denied for LTACH Acute hypoxic respiratory failure requiring MV >96hrs Status post tracheostomy, was on T piece now put back on Vent after cardiac arrest Nosocomial acquired aspiration pneumonia/sepsis/UTI She had completed a course of antibiotics. Asthma/COPD exacerbation Now has trach Acute Toxic Metabolic encephalopathy. Multitifactorial, mostly secondary to evolution of CVA Hypertensive Emergency continue BP meds Bilateral pleural effusion, s/p right thoracentesis 11/14 fluid analysis cw transudate Paroxysmal atrial fibrillation with rapid ventricular rate and hyper-coaguable state , failed cardioversion Continue current medications, Not a candidate for anticoagulation secondary to anemia, thrombocytopenia, and massive CVA Hypokalemia/Hypomagnesemia/hypophosphatemia. Replete electrolytes as needed. Diabetes type 2. Continue sliding-scale regular insulin and Accu-Cheks. Hyperlipidemia. Continue statin Nutrition continue tube feeds Anemia requiring multiple transfusions/acute blood loss Has received total 14 units of PRBC this admission. Will continue to transfuse to keep Hemoglobin above 7 Hemoglobin 8.4 today. Her POA is her Brother, Jam [phone] Hospitalist discussed code status and very poor prognosis with family, but they still want full code status Disposition. Very poor prognosis. Plan is for SNF placement when stable She was denied by LTAC The high probability of a clinically significant, sudden or life threatening deterioration of the [4] system(s) required my full and direct attention, intervention and personal management. The aggregate critical care time was [32] minutes. This time is in addition to time spent performing reported procedures but includes the following: [x] Data Review and interpretation [x] Patient assessment and monitoring of vital signs [x] Documentation [x] Medication orders and management History Interval history: Patient has had a prolonged stay in ICU, and was transferred to [facility]. She had cardiac arrest 5 days ago,was resuscitated and then transferred to ICU Still having fever, had fever yesterday Hospitalist Physical - Physical exam Narrative exam: Gen appearance: Trach, not in acute distress, on Ventilator HEENT: Atraumatic Neck: Tracheostomy Lungs: Coarse breath sounds bilaterally, no crackles or wheezes Heart :S1 and S2 irregular, rapid,no murmurs, rubs or gallop Abdomen: Soft, non tender, nod distended, ostomy bags, bowel sounds present Extremities : bilateral edema, upper and lower ext Neuro: Eyes open, Does not follow commands,no purposeful movement - Constitutional Vitals: Temp Pulse Resp BP Pulse Ox 99.2 F 143 H 26 H 143/92 97 11/26/16 08:00 11/26/16 08:00 11/26/16 08:00 11/26/16 08:00 11/26/16 08:00 General appearance: Present: no acute distress Results - Labs CBC & Chem 7: 11/26/16 05:13 11/26/16 05:13 Labs: Laboratory Last Values WBC 9.0 K/mm3 (4.5-11.0) 11/26/16 05:13 RBC 2.94 M/mm3 (3.65-5.03) L 11/26/16 05:13 Hgb 8.4 gm/dl (10.1-14.3) L 11/26/16 05:13 Hct 24.6 % (30.3-42.9) L 11/26/16 05:13 MCV 84 fl (79-97) 11/26/16 05:13 MCH 29 pg (28-32) 11/26/16 05:13 MCHC 34 % (30-34) 11/26/16 05:13 RDW 16.4 % (13.2-15.2) H 11/26/16 05:13 Plt Count 221 K/mm3 (140-440) 11/26/16 05:13 Lymph % (Auto) 17.0 % (13.4-35.0) 11/26/16 05:13 [place] % (Auto) 12.3 % (0.0-7.3) H 11/26/16 05:13 Eos % (Auto) 0.6 % (0.0-4.3) 11/26/16 05:13 Baso % (Auto) 0.4 % (0.0-1.8) 11/26/16 05:13 Lymph # 1.5 K/mm3 (1.2-5.4) 11/26/16 05:13 [place] # 1.1 K/mm3 (0.0-0.8) H 11/26/16 05:13 Eos # 0.1 K/mm3 (0.0-0.4) 11/26/16 05:13 Baso # 0.0 K/mm3 (0.0-0.1) 11/26/16 05:13 Add Manual Diff Complete 11/22/16 05:00 Total Counted 100 11/22/16 05:00 Seg Neutrophils % 69.7 % (40.0-70.0) 11/26/16 05:13 Seg Neuts % (Manual) 52.0 % (40.0-70.0) 11/22/16 05:00 Band Neutrophils % 37.0 % 11/22/16 05:00 Lymphocytes % (Manual) 7.0 % (13.4-35.0) L 11/22/16 05:00 Reactive Lymphs % (Man) 0 % 11/22/16 05:00 Monocytes % (Manual) 0 % (0.0-7.3) 11/22/16 05:00 Eosinophils % (Manual) 1.0 % (0.0-4.3) 11/22/16 05:00 Basophils % (Manual) 0 % (0.0-1.8) 11/21/16 07:45 Metamyelocytes % 1.0 % 11/22/16 05:00 Myelocytes % 2.0 % 11/22/16 05:00 Promyelocytes % 0 % 11/22/16 05:00 Blast Cells % 0 % 11/22/16 05:00 Nucleated RBC % Not Reportable 11/22/16 05:00 Seg Neutrophils # 6.3 K/mm3 (1.8-7.7) 11/26/16 05:13 Seg Neutrophils # Man 15.4 K/mm3 (1.8-7.7) H 11/22/16 05:00 Band Neutrophils # 11.0 K/mm3 11/22/16 05:00 Lymphocytes # (Manual) 2.1 K/mm3 (1.2-5.4) 11/22/16 05:00 Abs React Lymphs (Man) 0.0 K/mm3 11/22/16 05:00 Monocytes # (Manual) 0.0 K/mm3 (0.0-0.8) 11/22/16 05:00 Eosinophils # (Manual) 0.3 K/mm3 (0.0-0.4) 11/22/16 05:00 Basophils # (Manual) 0.0 K/mm3 (0.0-0.1) 11/22/16 05:00 Metamyelocytes # 0.3 K/mm3 11/22/16 05:00 Myelocytes # 0.6 K/mm3 11/22/16 05:00 Promyelocytes # 0.0 K/mm3 11/22/16 05:00 Blast Cells # 0.0 K/mm3 11/22/16 05:00 Pathologist Review 09/13/16 04:00 WBC Morphology Not Reportable 11/22/16 05:00 Hypersegmented Neuts Not Reportable 11/22/16 05:00 Hyposegmented Neuts Not Reportable 11/22/16 05:00 Hypogranular Neuts Not Reportable 11/22/16 05:00 Smudge Cells Not Reportable 11/22/16 05:00 Toxic Granulation Not Reportable 11/22/16 05:00 Toxic Vacuolation Not Reportable 11/22/16 05:00 Dohle Bodies Not Reportable 11/22/16 05:00 Pelger-Huet Anomaly Not Reportable 11/22/16 05:00 Jasmina Rods Not Reportable 11/22/16 05:00 Platelet Estimate Not Reportable 11/22/16 05:00 Clumped Platelets Not Reportable 11/22/16 05:00 Plt Clumps, EDTA Not Reportable 11/22/16 05:00 Large Platelets Not Reportable 11/22/16 05:00 Giant Platelets Not Reportable 11/22/16 05:00 Platelet Satelliting Not Reportable 11/22/16 05:00 Plt Morphology Comment Not Reportable 11/22/16 05:00 RBC Morphology Not Reportable 11/22/16 05:00 Dimorphic RBCs Not Reportable 11/22/16 05:00 Polychromasia Few 11/22/16 05:00 Hypochromasia Not Reportable 11/22/16 05:00 Poikilocytosis Not Reportable 11/22/16 05:00 Anisocytosis Not Reportable 11/22/16 05:00 Microcytosis Not Reportable 11/22/16 05:00 Macrocytosis Not Reportable 11/22/16 05:00 Spherocytes Not Reportable 11/22/16 05:00 Pappenheimer Bodies Not Reportable 11/22/16 05:00 Sickle Cells Not Reportable 11/22/16 05:00 Target Cells Not Reportable 11/22/16 05:00 Tear Drop Cells Not Reportable 11/22/16 05:00 Ovalocytes Not Reportable 11/22/16 05:00 Stomatocytes Few 10/06/16 03:50 Helmet Cells Not Reportable 11/22/16 05:00 [place] Bodies Not Reportable 11/22/16 05:00 [place] Rings Not Reportable 11/22/16 05:00 Chuck Cells Not Reportable 11/22/16 05:00 Bite Cells Not Reportable 11/22/16 05:00 Crenated Cell Not Reportable 11/22/16 05:00 Elliptocytes Not Reportable 11/22/16 05:00 Acanthocytes (Spur) Not Reportable 11/22/16 05:00 Rouleaux Not Reportable 11/22/16 05:00 Hemoglobin C Crystals Not Reportable 11/22/16 05:00 Schistocytes Not Reportable 11/22/16 05:00 Malaria parasites Not Reportable 11/22/16 05:00 ESR > 140.0 mm/Hr (0-20) 09/08/16 11:48 Jun Bodies Not Reportable 11/22/16 05:00 Hem Pathologist Commnt No 11/22/16 05:00 PT 16.8 Sec. (12.2-14.9) H 11/17/16 03:20 INR 1.37 (0.87-1.13) H 11/17/16 03:20 APTT 33.0 Sec. (24.2-36.6) 10/09/16 03:45 Thrombin Time 16.8 Sec. (15.1-19.6) 09/03/16 00:10 Fibrinogen 750 mg/dl (211-480) H 09/08/16 11:48 Lupus Anticoagulant see below 09/12/16 09:59 LA PTT Baseline See scanned report 09/12/16 09:59 dRVVT Confirm Interp Positive (Negative) H 09/12/16 09:59 dRVVT Screen 50:50 See scanned report 09/12/16 09:59 dRVVT Mix Interpret See scanned report 09/12/16 09:59 Protein C Antigen 122 % (70-140) 09/08/16 15:35 Free Protein S 97 % normal (50-147) 09/08/16 15:35 Total Protein S 109 % (70-140) 09/08/16 15:35 Antithrombin III Ag 100 % (80-120) 09/08/16 15:35 Heparin Anti-Xa, Unfract Negative (Negative) 09/29/16 13:35 Factor V Activity 182 % (65-150) H 09/08/16 15:35 POC ABG pH 7.487 (7.35-7.45) H 11/25/16 14:12 POC ABG pCO2 39.0 (35-45) 11/25/16 14:12 POC ABG pO2 153 (80-105) H 11/25/16 14:12 POC ABG HCO3 29.5 11/25/16 14:12 POC ABG Total CO2 31 11/25/16 14:12 POC ABG O2 Sat 99 11/25/16 14:12 POC ABG Base Excess 6 11/25/16 14:12 FiO2 45 % 11/25/16 14:12 Sodium 138 mmol/L (137-145) 11/26/16 05:13 Potassium 3.9 mmol/L (3.6-5.0) 11/26/16 05:13 Chloride 97.8 mmol/L (98-107) L 11/26/16 05:13 Carbon Dioxide 26 mmol/L (22-30) 11/26/16 05:13 Anion Gap 18 mmol/L 11/26/16 05:13 BUN 37 mg/dL (7-17) H 11/26/16 05:13 Creatinine 2.0 mg/dL (0.7-1.2) H 11/26/16 05:13 Estimated GFR 33 ml/min 11/26/16 05:13 BUN/Creatinine Ratio 19 % 11/26/16 05:13 Glucose 109 mg/dL (65-100) H 11/26/16 05:13 POC Glucose 117 (70-105) H 11/26/16 05:28 Osmolality 351 Mosm/kg 09/16/16 11:47 Lactic Acid 4.50 mmol/L (0.7-2.0) H* 09/28/16 07:25 Calcium 7.9 mg/dL (8.4-10.2) L 11/26/16 05:13 Phosphorus 1.80 mg/dL (2.5-4.5) L D 11/26/16 05:13 Magnesium 1.80 mg/dL (1.7-2.3) 11/26/16 05:13 Total Bilirubin 0.60 mg/dL (0.1-1.2) 11/25/16 04:42 Direct Bilirubin 0.3 mg/dL (0-0.2) H 10/10/16 05:00 Indirect Bilirubin 0.1 mg/dL 10/10/16 05:00 AST 19 units/L (5-40) 11/25/16 04:42 ALT 15 units/L (7-56) 11/25/16 04:42 Alkaline Phosphatase 142 units/L (35-129) H 11/25/16 04:42 Ammonia 27.0 umol/L (25-60) 09/07/16 08:37 Lactate Dehydrogenase 196 units/L (91-180) H 11/11/16 06:59 Total Creatine Kinase 121 units/L (30-135) 09/29/16 20:12 CK-MB (CK-2) < 1.0 ng/mL (0.0-4.0) 09/29/16 20:12 CK-MB (CK-2) Rel Index 0.8 (0-4) 09/29/16 20:12 Troponin T 0.204 ng/mL (0.00-0.029) H* 09/29/16 20:12 C-Reactive Protein 11.40 mg/dL (0.00-1.30) H 11/05/16 13:25 Total Protein 5.7 g/dL (6.3-8.2) L 11/25/16 04:42 Albumin 1.5 g/dL (3.9-5) L 11/25/16 04:42 Albumin/Globulin Ratio 0.4 % 11/25/16 04:42 Prealbumin 0.180 g/L (0.200-0.400) L 11/06/16 06:25 Triglycerides 137 mg/dL (2-149) 09/29/16 20:12 Cholesterol 31 mg/dL (50-199) L 09/29/16 20:12 LDL Cholesterol Direct 4 mg/dL (50-130) L 09/29/16 20:12 HDL Cholesterol 3 mg/dL (40-59) L 09/29/16 20:12 Cholesterol/HDL Ratio 10.33 % 09/29/16 20:12 Angiotensin Convert Enz See scanned report 09/08/16 11:48 Renin 0.99 ng/mL/h (0.25-5.82) 10/07/16 10:56 Aldosterone <1 ng/dL () 10/07/16 10:56 Aldosterone/Renin Dir see below 10/07/16 10:56 Serotonin Release Assay See scanned report 09/29/16 13:35 TSH 1.010 mlU/mL (0.270-4.200) 09/07/16 08:37 HCG, Qual Negative (Negative) 09/03/16 00:10 Urine Color Yellow (Yellow) 11/05/16 13:09 Urine Turbidity Clear (Clear) 11/05/16 13:09 Urine pH 9.0 (5.0-7.0) H 11/05/16 13:09 Ur Specific [place] 1.011 (1.003-1.030) 11/05/16 13:09 Urine Protein 100 mg/dl mg/dL (Negative) 11/05/16 13:09 Urine Glucose (UA) Neg mg/dL (Negative) 11/05/16 13:09 Urine Ketones Neg mg/dL (Negative) 11/05/16 13:09 Urine Blood Neg (Negative) 11/05/16 13:09 Urine Nitrite Neg (Negative) 11/05/16 13:09 Urine Bilirubin Neg (Negative) 11/05/16 13:09 Urine Urobilinogen < 2.0 mg/dL (<2.0) 11/05/16 13:09 Ur Leukocyte Esterase Neg (Negative) 11/05/16 13:09 Urine WBC (Auto) 4.0 /HPF (0.0-6.0) 11/05/16 13:09 Urine RBC (Auto) 1.0 /HPF (0.0-6.0) 11/05/16 13:09 U Epithel Cells (Auto) 1.0 /HPF (0-13.0) 10/07/16 18:30 Urine Bacteria (Auto) 4+ /HPF (Negative) 11/05/16 13:09 Urine WBC Clumps 2+ /HPF 09/07/16 02:47 Hyaline Casts 4 /LPF 09/07/16 02:47 Urine Mucus Few /HPF 10/07/16 18:30 Urine Yeast (Budding) 3+ /HPF 10/07/16 18:30 Urine Eosinophils None seen (None Seen) 09/07/16 16:00 Urine Total Volume 950 11/12/16 10:18 Urine Creatinine 19.7 mg/dL (0.1-20.0) 11/12/16 10:18 Height (in) 65.0 inches 11/12/16 10:18 Weight (lb) 181.0 lbs 11/12/16 10:18 Creatinine Clearance 5 11/12/16 10:18 Urine Sodium 36 mEq/L 09/16/16 19:19 Urine Total Protein 16 mg/dL (5-11.8) H 09/16/16 19:19 Fluid Total Protein < 3.0 (15.0-45.0) L 11/10/16 14:20 Fluid LDH 123 11/10/16 14:20 Vancomycin Trough 2.3 ug/mL (5.0-20.0) L 09/21/16 13:00 Random Vancomycin 16.0 ug/mL (0-40.0) 11/25/16 04:42 Urine Opiates Screen Presumptive negative 09/03/16 15:11 Urine Methadone Screen Presumptive positive 09/03/16 15:11 Ur Barbiturates Screen Presumptive positive 09/03/16 15:11 Ur Phencyclidine Scrn Presumptive negative 09/03/16 15:11 Ur Amphetamines Screen Presumptive negative 09/03/16 15:11 U Benzodiazepines Scrn Presumptive negative 09/03/16 15:11 Urine Cocaine Screen Presumptive negative 09/03/16 15:11 U Marijuana (THC) Screen Presumptive positive 09/03/16 15:11 Drugs of Abuse Note Disclamer 09/03/16 15:11 Rheumatoid Factor 24 IU/ml (0-13) H 09/08/16 11:48 SAHIL Screen Negative (Negative) 09/07/16 09:20 Proteinase 3 (PR3) Ab <1.0 AI (<1.0) 09/07/16 09:20 Myeloperoxidase Ab <1.0 AI (<1.0) 09/07/16 09:20 Sjogren's Antibody <1.0 AI (<1.0) 09/08/16 15:35 Scl-70 Scleroderma Ab <1.0 AI (<1.0) 09/08/16 15:35 Centromere B Antibody <1.0 AI (<1.0) 09/08/16 12:02 Heparin-induced Plt Ab Negative (Negative) 09/29/16 13:35 UF Heparin High Dose 11 % Release 09/29/16 13:35 SUDHIR UFH Low Dose 0.1 6 % Release 09/29/16 13:35 SUDHIR UFH Low Dose 0.5 8 % Release 09/29/16 13:35 Cardiolipid IgG Ab <14 GPL (<=14) 09/12/16 09:59 Cardiolipid IgA Ab <11 APL (<=11) 09/12/16 09:59 Cardiolipid IgM Ab <12 MPL (<=12) 09/12/16 09:59 Complement C3 148 mg/dL (90-180) 09/07/16 09:20 Complement C4 58 mg/dL (16-47) H 09/07/16 09:20 RPR Nonreactive (Nonreactive) 09/08/16 11:48 Hepatitis A IgM Ab Non-reactive (NonReactive) 09/24/16 14:40 Hep Bs Antigen Non-reactive (Negative) 09/24/16 14:40 Hep B Core IgM Ab Non-reactive (NonReactive) 09/24/16 14:40 Hepatitis C Antibody Non-reactive (NonReactive) 09/24/16 14:40 HIV 1&2 Antibody Rapid Non react (Non React) 09/08/16 11:48 HIV P24 Antigen Non react (Non React) 09/08/16 11:48 Miscellaneous Test Flexitest 1 H 11/05/16 13:25 Blood Type A POSITIVE 11/24/16 11:20 Antibody Screen TNR 11/24/16 11:20 DELORIS Antibody Screen Negative 11/24/16 11:20 Crossmatch See Detail 11/24/16 11:20
[2016-11-26] MEDS: QUESTRAN PO SCH (10:00)
[2016-11-26] MEDS: PROTONIX IV SCH (10:15)
[2016-11-26] MEDS: HEPARIN SUB-Q SCH ×2 (10:15→22:08)
--- NOTE | 2016-11-26 10:16 | XRay Report ---
AP CHEST: HISTORY: Followup respiratory failure The tracheostomy, feeding tube and left venous catheter remain in adequate position. Mild cardiomegaly and central pulmonary venous congestion are stable. Decreased bibasilar atelectasis or effusions since yesterday's exam. A small left pleural effusion persists. IMPRESSION: Mild improvement since yesterday's exam as described.
--- NOTE | 2016-11-26 11:10 | Progress Note ---
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 shift * Acute hypoxic respiratory failure * Left renal artery stenosis * Metabolic acidosis - improved * Anemia * Hyponatremia - multifactorial * tachycardia Plan: * Uneventful hemodialysis yesterday * Shall dialyze her when necessary based on her hemodynamic stability * Her PermCath is no longer being used for IV access at this time * monitor for renal recovery * Rate control per cardiology * Dose medications for renal function * Avoid potential nephrotoxins Subjective Date of service: 11/26/16 Principal diagnosis: Acute resp failure on MVS; S/P Acute CVA; Acute Encephalopathy; JUANITA Interval history: Patient had dialysis yesterday. Her PermCath is no longer being accessed for other reasons. She has a peripheral line in her left hand. Patient remains on the ventilator. On 30% FiO2 Objective - Vital Signs Vital signs: Vital Signs - 12hr 11/25/16 11/26/16 11/26/16 23:48 00:00 00:37 Temperature 99.7 F H Pulse Rate 128 H Pulse Rate [ From Monitor] Respiratory 15 Rate Respiratory Rate [Left Hand ] Blood Pressure 159/83 O2 Sat by Pulse 99 Oximetry O2 Sat by Pulse 100 Oximetry [ Assessment] 11/26/16 11/26/16 11/26/16 01:00 01:21 01:45 Temperature Pulse Rate 128 H 120 H 133 H Pulse Rate [ From Monitor] Respiratory 18 Rate Respiratory Rate [Left Hand ] Blood Pressure 166/94 166/94 170/95 O2 Sat by Pulse 98 100 Oximetry O2 Sat by Pulse Oximetry [ Assessment] 11/26/16 11/26/16 11/26/16 02:00 03:00 03:25 Temperature Pulse Rate 137 H 137 H Pulse Rate [ From Monitor] Respiratory 18 13 21 Rate Respiratory Rate [Left Hand ] Blood Pressure 198/101 181/89 O2 Sat by Pulse 100 99 Oximetry O2 Sat by Pulse Oximetry [ Assessment] 11/26/16 11/26/16 11/26/16 03:56 04:00 04:45 Temperature 98.8 F Pulse Rate 139 H 131 H Pulse Rate [ From Monitor] Respiratory 26 H Rate Respiratory 22 Rate [Left Hand ] Blood Pressure 170/95 O2 Sat by Pulse 93 Oximetry O2 Sat by Pulse Oximetry [ Assessment] 11/26/16 11/26/16 11/26/16 04:51 05:00 06:00 Temperature Pulse Rate 133 H 133 H 127 H Pulse Rate [ From Monitor] Respiratory 17 20 Rate Respiratory Rate [Left Hand ] Blood Pressure 170/95 145/89 137/93 O2 Sat by Pulse 99 95 98 Oximetry O2 Sat by Pulse Oximetry [ Assessment] 11/26/16 11/26/16 11/26/16 06:28 07:00 08:00 Temperature 99.2 F Pulse Rate 131 H 136 H 143 H Pulse Rate [ 143 H From Monitor] Respiratory 20 26 H Rate Respiratory Rate [Left Hand ] Blood Pressure 137/93 146/84 143/92 O2 Sat by Pulse 97 97 Oximetry O2 Sat by Pulse Oximetry [ Assessment] 11/26/16 11/26/16 09:00 10:00 Temperature Pulse Rate 129 H 129 H Pulse Rate [ From Monitor] Respiratory 15 12 Rate Respiratory Rate [Left Hand ] Blood Pressure 135/86 137/85 O2 Sat by Pulse 98 97 Oximetry O2 Sat by Pulse Oximetry [ Assessment] - General Appearance General appearance: well-developed, well-nourished, appears stated age, intubated EENT: PERRL, mucous membranes moist Neck: no JVD, no thyromegaly, other (left IJ PermCath in place) Respiratory: Present: Clear to Ascultation Cardiology: regular, normal heart rate Gastrointestinal: normal, normoactive bowel sounds Integumentary: no rash, other (1+ edema) - Lab 11/26/16 05:13 11/26/16 05:13 Most recent lab results Calcium 7.9 mg/dL (8.4-10.2) L 11/26/16 05:13 Phosphorus 1.80 mg/dL (2.5-4.5) L D 11/26/16 05:13 Magnesium 1.80 mg/dL (1.7-2.3) 11/26/16 05:13 Urine Creatinine 19.7 mg/dL (0.1-20.0) 11/12/16 10:18 Urine Sodium 36 mEq/L 09/16/16 19:19 Urine Total Protein 16 mg/dL (5-11.8) H 09/16/16 19:19
[2016-11-26] MEDS: TRANSDERM-SCOP TD SCH (13:23)
--- NOTE | 2016-11-26 14:59 | Progress Note ---
Assessment and Plan Acute Hypoxemic Respiratory Failure (now with exacerbation and back on MVS) Hypertension (unable to receive p.o. 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 better - continue HD/UF per nephrology - follow electrolytes and correct as necessary - continue TPN in short term till enteric fistula heals - continue GI & VTE prophylaxis - Continue flu & pneumovax per protocol ... remains critically ill on life sustaining interventions including MVS and at risk for further deterioration including ....30' CCT today without overlap Subjective Date of service: 11/26/16 Principal diagnosis: Acute resp failure on MVS; S/P Acute CVA; Acute Encephalopathy; JUANITA Interval history: Seen and examined at bedside; 24hour events reviewed; nursing and respiratory care staff consulted; no adverse overnight events reported to me; remains on MVS ; on PSV 11/24; AMS is persistent; breathing is mildly labored; no emesis or overt aspiration Objective Vital Signs - 12hr 11/26/16 11/26/16 11/26/16 03:00 03:25 03:56 Temperature 98.8 F Pulse Rate 137 H Pulse Rate [ From Monitor] Respiratory 13 21 Rate Respiratory Rate [Left Hand ] Blood Pressure 181/89 O2 Sat by Pulse 99 Oximetry O2 Sat by Pulse Oximetry [ Assessment] 11/26/16 11/26/16 11/26/16 04:00 04:45 04:51 Temperature Pulse Rate 139 H 131 H 133 H Pulse Rate [ From Monitor] Respiratory 26 H Rate Respiratory 22 Rate [Left Hand ] Blood Pressure 170/95 170/95 O2 Sat by Pulse 93 99 Oximetry O2 Sat by Pulse Oximetry [ Assessment] 11/26/16 11/26/16 11/26/16 05:00 06:00 06:28 Temperature Pulse Rate 133 H 127 H 131 H Pulse Rate [ From Monitor] Respiratory 17 20 Rate Respiratory Rate [Left Hand ] Blood Pressure 145/89 137/93 137/93 O2 Sat by Pulse 95 98 Oximetry O2 Sat by Pulse Oximetry [ Assessment] 11/26/16 11/26/16 11/26/16 07:00 08:00 09:00 Temperature 99.2 F Pulse Rate 136 H 143 H 129 H Pulse Rate [ 143 H From Monitor] Respiratory 20 26 H 15 Rate Respiratory Rate [Left Hand ] Blood Pressure 146/84 143/92 135/86 O2 Sat by Pulse 97 97 98 Oximetry O2 Sat by Pulse Oximetry [ Assessment] 11/26/16 11/26/16 11/26/16 09:40 10:00 10:25 Temperature Pulse Rate 137 H 129 H Pulse Rate [ From Monitor] Respiratory 12 Rate Respiratory Rate [Left Hand ] Blood Pressure 137/85 137/85 O2 Sat by Pulse 98 97 Oximetry O2 Sat by Pulse 99 Oximetry [ Assessment] 11/26/16 11/26/16 11/26/16 11:00 12:00 12:35 Temperature 98.4 F Pulse Rate 137 H 114 H 107 H Pulse Rate [ 114 H From Monitor] Respiratory 23 23 Rate Respiratory Rate [Left Hand ] Blood Pressure 157/86 94/51 97/53 O2 Sat by Pulse 95 97 Oximetry O2 Sat by Pulse Oximetry [ Assessment] 11/26/16 13:24 Temperature Pulse Rate 124 H Pulse Rate [ From Monitor] Respiratory Rate Respiratory Rate [Left Hand ] Blood Pressure 165/95 O2 Sat by Pulse Oximetry O2 Sat by Pulse Oximetry [ Assessment] Constitutional: no acute distress, other (eyes open; tracking movements) Eyes: non-icteric, other (tracheostomy tube in midline of neck) ENT: oropharynx moist, oropharyngeal exudate pre Neck: supple, no lymphadenopathy, no JVD Effort: mildly labored Ascultation: Bilateral: clear, diminished breath sounds (bases), rales, rhonchi (and referred upper airway sounds) Cardiovascular: regular rate and rhythm Gastrointestinal: normoactive bowel sounds, soft, non-tender, non-distended, other (RLQ stomas with colostomy bags as well as LUQ over PEG stoma) Integumentary: other (normal skin tugor; no tenting) Extremities: no cyanosis, pulses normal, edema Neurologic: pupils equal and round, unable to assess, other (encephalopathic) Psychiatric: other (unable to assess) CBC and BMP: 11/26/16 05:13 11/26/16 05:13 ABG, PT/INR, D-dimer: ABG POC ABG pH 7.487 (7.35-7.45) H 11/25/16 14:12 POC ABG pCO2 39.0 (35-45) 11/25/16 14:12 POC ABG pO2 153 (80-105) H 11/25/16 14:12 POC ABG HCO3 29.5 11/25/16 14:12 POC ABG Total CO2 31 11/25/16 14:12 POC ABG O2 Sat 99 11/25/16 14:12 PT/INR, D-dimer PT 16.8 Sec. (12.2-14.9) H 11/17/16 03:20 INR 1.37 (0.87-1.13) H 11/17/16 03:20 Abnormal lab findings: Abnormal Labs 09/03/16 09/03/16 09/03/16 12:12 15:07 16:20 WBC RBC Hgb Hct MCV MCH MCHC RDW Plt Count Lymph % (Auto) [place] % (Auto) Lymph # [place] # Baso # Seg Neutrophils % Seg Neuts % (Manual) Lymphocytes % (Manual) Monocytes % (Manual) Eosinophils % (Manual) Basophils % (Manual) Nucleated RBC % Seg Neutrophils # Seg Neutrophils # Man Lymphocytes # (Manual) Monocytes # (Manual) Eosinophils # (Manual) PT INR Fibrinogen dRVVT Confirm Interp Factor V Activity POC ABG pH 7.452 H POC ABG pCO2 POC ABG pO2 Sodium Potassium Chloride Carbon Dioxide BUN Creatinine Glucose POC Glucose 178 H Lactic Acid Calcium Phosphorus 2.20 L Magnesium 1.60 L Direct Bilirubin AST ALT Alkaline Phosphatase Lactate Dehydrogenase Troponin T C-Reactive Protein Total Protein Albumin Prealbumin Triglycerides Cholesterol LDL Cholesterol Direct HDL Cholesterol Urine pH Urine WBC (Auto) Urine Creatinine Urine Total Protein Fluid Total Protein Vancomycin Trough Rheumatoid Factor Complement C4 Miscellaneous Test Crossmatch 09/03/16 09/03/16 09/03/16 17:57 17:58 23:50 WBC RBC Hgb Hct MCV MCH MCHC RDW Plt Count Lymph % (Auto) [place] % (Auto) Lymph # [place] # Baso # Seg Neutrophils % Seg Neuts % (Manual) Lymphocytes % (Manual) Monocytes % (Manual) Eosinophils % (Manual) Basophils % (Manual) Nucleated RBC % Seg Neutrophils # Seg Neutrophils # Man Lymphocytes # (Manual) Monocytes # (Manual) Eosinophils # (Manual) PT INR Fibrinogen dRVVT Confirm Interp Factor V Activity POC ABG pH POC ABG pCO2 POC ABG pO2 Sodium Potassium Chloride Carbon Dioxide BUN Creatinine Glucose POC Glucose 162 H 145 H Lactic Acid Calcium Phosphorus 2.30 L Magnesium Direct Bilirubin AST ALT Alkaline Phosphatase Lactate Dehydrogenase Troponin T C-Reactive Protein Total Protein Albumin Prealbumin Triglycerides Cholesterol LDL Cholesterol Direct HDL Cholesterol Urine pH Urine WBC (Auto) Urine Creatinine Urine Total Protein Fluid Total Protein Vancomycin Trough Rheumatoid Factor Complement C4 Miscellaneous Test Crossmatch 09/04/16 09/04/16 09/04/16 03:31 03:31 05:42 WBC RBC Hgb 9.7 L D Hct MCV 72 L MCH 23 L MCHC RDW 17.5 H Plt Count Lymph % (Auto) 11.1 L [place] % (Auto) Lymph # [place] # Baso # Seg Neutrophils % 84.3 H Seg Neuts % (Manual) Lymphocytes % (Manual) Monocytes % (Manual) Eosinophils % (Manual) Basophils % (Manual) Nucleated RBC % Seg Neutrophils # 8.9 H Seg Neutrophils # Man Lymphocytes # (Manual) Monocytes # (Manual) Eosinophils # (Manual) PT INR Fibrinogen dRVVT Confirm Interp Factor V Activity POC ABG pH POC ABG pCO2 POC ABG pO2 Sodium 135 L Potassium 2.9 L* Chloride 97.2 L Carbon Dioxide 19 L BUN Creatinine 1.7 H Glucose 170 H POC Glucose 152 H Lactic Acid Calcium Phosphorus Magnesium Direct Bilirubin AST ALT Alkaline Phosphatase Lactate Dehydrogenase Troponin T C-Reactive Protein Total Protein Albumin Prealbumin Triglycerides 160 H Cholesterol LDL Cholesterol Direct HDL Cholesterol 31 L Urine pH Urine WBC (Auto) Urine Creatinine Urine Total Protein Fluid Total Protein Vancomycin Trough Rheumatoid Factor Complement C4 Miscellaneous Test Crossmatch 09/04/16 09/04/16 09/04/16 11:34 17:46 23:29 WBC RBC Hgb Hct MCV MCH MCHC RDW Plt Count Lymph % (Auto) [place] % (Auto) Lymph # [place] # Baso # Seg Neutrophils % Seg Neuts % (Manual) Lymphocytes % (Manual) Monocytes % (Manual) Eosinophils % (Manual) Basophils % (Manual) Nucleated RBC % Seg Neutrophils # Seg Neutrophils # Man Lymphocytes # (Manual) Monocytes # (Manual) Eosinophils # (Manual) PT INR Fibrinogen dRVVT Confirm Interp Factor V Activity POC ABG pH POC ABG pCO2 POC ABG pO2 Sodium Potassium Chloride Carbon Dioxide BUN Creatinine Glucose POC Glucose 165 H 210 H 139 H Lactic Acid Calcium Phosphorus Magnesium Direct Bilirubin AST ALT Alkaline Phosphatase Lactate Dehydrogenase Troponin T C-Reactive Protein Total Protein Albumin Prealbumin Triglycerides Cholesterol LDL Cholesterol Direct HDL Cholesterol Urine pH Urine WBC (Auto) Urine Creatinine Urine Total Protein Fluid Total Protein Vancomycin Trough Rheumatoid Factor Complement C4 Miscellaneous Test Crossmatch 09/05/16 09/05/16 09/05/16 04:05 04:05 05:38 WBC RBC Hgb Hct MCV 76 L D MCH 23 L MCHC RDW 17.8 H Plt Count Lymph % (Auto) [place] % (Auto) Lymph # [place] # Baso # Seg Neutrophils % Seg Neuts % (Manual) Lymphocytes % (Manual) Monocytes % (Manual) Eosinophils % (Manual) Basophils % (Manual) Nucleated RBC % Seg Neutrophils # Seg Neutrophils # Man Lymphocytes # (Manual) Monocytes # (Manual) Eosinophils # (Manual) PT INR Fibrinogen dRVVT Confirm Interp Factor V Activity POC ABG pH POC ABG pCO2 POC ABG pO2 Sodium 134 L Potassium Chloride Carbon Dioxide 18 L BUN Creatinine 1.8 H Glucose 192 H POC Glucose 175 H Lactic Acid Calcium Phosphorus Magnesium Direct Bilirubin AST ALT Alkaline Phosphatase Lactate Dehydrogenase Troponin T C-Reactive Protein Total Protein Albumin Prealbumin Triglycerides Cholesterol LDL Cholesterol Direct HDL Cholesterol Urine pH Urine WBC (Auto) Urine Creatinine Urine Total Protein Fluid Total Protein Vancomycin Trough Rheumatoid Factor Complement C4 Miscellaneous Test Crossmatch 09/05/16 09/05/16 09/05/16 11:38 17:48 23:22 WBC RBC Hgb Hct MCV MCH MCHC RDW Plt Count Lymph % (Auto) [place] % (Auto) Lymph # [place] # Baso # Seg Neutrophils % Seg Neuts % (Manual) Lymphocytes % (Manual) Monocytes % (Manual) Eosinophils % (Manual) Basophils % (Manual) Nucleated RBC % Seg Neutrophils # Seg Neutrophils # Man Lymphocytes # (Manual) Monocytes # (Manual) Eosinophils # (Manual) PT INR Fibrinogen dRVVT Confirm Interp Factor V Activity POC ABG pH POC ABG pCO2 POC ABG pO2 Sodium Potassium Chloride Carbon Dioxide BUN Creatinine Glucose POC Glucose 164 H 186 H 195 H Lactic Acid Calcium Phosphorus Magnesium Direct Bilirubin AST ALT Alkaline Phosphatase Lactate Dehydrogenase Troponin T C-Reactive Protein Total Protein Albumin Prealbumin Triglycerides Cholesterol LDL Cholesterol Direct HDL Cholesterol Urine pH Urine WBC (Auto) Urine Creatinine Urine Total Protein Fluid Total Protein Vancomycin Trough Rheumatoid Factor Complement C4 Miscellaneous Test Crossmatch 09/06/16 09/06/16 09/06/16 04:12 05:59 07:32 WBC RBC Hgb Hct MCV MCH MCHC RDW Plt Count Lymph % (Auto) [place] % (Auto) Lymph # [place] # [place] # Seg Neutrophils % Seg Neuts % (Manual) Lymphocytes % (Manual) Monocytes % (Manual) Eosinophils % (Manual) Basophils % (Manual) Nucleated RBC % Seg Neutrophils # Seg Neutrophils # Man Lymphocytes # (Manual) Monocytes # (Manual) Eosinophils # (Manual) PT INR Fibrinogen dRVVT Confirm Interp Factor V Activity POC ABG pH 7.514 H POC ABG pCO2 29.1 L POC ABG pO2 72 L Sodium 133 L Potassium 3.4 L Chloride 94.9 L Carbon Dioxide 19 L BUN 30 H Creatinine 2.1 H Glucose 139 H POC Glucose 146 H Lactic Acid Calcium Phosphorus Magnesium Direct Bilirubin AST ALT Alkaline Phosphatase Lactate Dehydrogenase Troponin T C-Reactive Protein Total Protein Albumin Prealbumin Triglycerides Cholesterol LDL Cholesterol Direct HDL Cholesterol Urine pH Urine WBC (Auto) Urine Creatinine Urine Total Protein Fluid Total Protein Vancomycin Trough Rheumatoid Factor Complement C4 Miscellaneous Test Crossmatch 09/06/16 09/06/16 09/06/16 11:57 17:58 19:02 WBC RBC Hgb Hct MCV MCH MCHC RDW Plt Count Lymph % (Auto) [place] % (Auto) Lymph # [place] # [place] # Seg Neutrophils % Seg Neuts % (Manual) Lymphocytes % (Manual) Monocytes % (Manual) Eosinophils % (Manual) Basophils % (Manual) Nucleated RBC % Seg Neutrophils # Seg Neutrophils # Man Lymphocytes # (Manual) Monocytes # (Manual) Eosinophils # (Manual) PT INR Fibrinogen dRVVT Confirm Interp Factor V Activity POC ABG pH 7.465 H POC ABG pCO2 32.0 L POC ABG pO2 Sodium Potassium Chloride Carbon Dioxide BUN Creatinine Glucose POC Glucose 165 H 160 H Lactic Acid Calcium Phosphorus Magnesium Direct Bilirubin AST ALT Alkaline Phosphatase Lactate Dehydrogenase Troponin T C-Reactive Protein Total Protein Albumin Prealbumin Triglycerides Cholesterol LDL Cholesterol Direct HDL Cholesterol Urine pH Urine WBC (Auto) Urine Creatinine Urine Total Protein Fluid Total Protein Vancomycin Trough Rheumatoid Factor Complement C4 Miscellaneous Test Crossmatch 09/06/16 09/07/16 09/07/16 23:45 02:47 02:47 WBC RBC Hgb Hct MCV MCH MCHC RDW Plt Count Lymph % (Auto) [place] % (Auto) Lymph # [place] # Baso # Seg Neutrophils % Seg Neuts % (Manual) Lymphocytes % (Manual) Monocytes % (Manual) Eosinophils % (Manual) Basophils % (Manual) Nucleated RBC % Seg Neutrophils # Seg Neutrophils # Man Lymphocytes # (Manual) Monocytes # (Manual) Eosinophils # (Manual) PT INR Fibrinogen dRVVT Confirm Interp Factor V Activity POC ABG pH POC ABG pCO2 POC ABG pO2 Sodium Potassium Chloride Carbon Dioxide BUN Creatinine Glucose POC Glucose 204 H Lactic Acid Calcium Phosphorus Magnesium Direct Bilirubin AST ALT Alkaline Phosphatase Lactate Dehydrogenase Troponin T C-Reactive Protein Total Protein Albumin Prealbumin Triglycerides Cholesterol LDL Cholesterol Direct HDL Cholesterol Urine pH Urine WBC (Auto) 68.0 H Urine Creatinine 106.1 H Urine Total Protein Fluid Total Protein Vancomycin Trough Rheumatoid Factor Complement C4 Miscellaneous Test Crossmatch 09/07/16 09/07/16 09/07/16 04:50 06:19 06:39 WBC RBC Hgb Hct MCV MCH MCHC RDW Plt Count Lymph % (Auto) [place] % (Auto) Lymph # [place] # Baso # Seg Neutrophils % Seg Neuts % (Manual) Lymphocytes % (Manual) Monocytes % (Manual) Eosinophils % (Manual) Basophils % (Manual) Nucleated RBC % Seg Neutrophils # Seg Neutrophils # Man Lymphocytes # (Manual) Monocytes # (Manual) Eosinophils # (Manual) PT INR Fibrinogen dRVVT Confirm Interp Factor V Activity POC ABG pH 7.457 H POC ABG pCO2 32.1 L POC ABG pO2 76 L Sodium 132 L Potassium Chloride 94.7 L Carbon Dioxide BUN 53 H Creatinine 2.9 H Glucose 151 H POC Glucose 149 H Lactic Acid Calcium Phosphorus Magnesium Direct Bilirubin AST ALT Alkaline Phosphatase Lactate Dehydrogenase Troponin T C-Reactive Protein Total Protein Albumin Prealbumin Triglycerides Cholesterol LDL Cholesterol Direct HDL Cholesterol Urine pH Urine WBC (Auto) Urine Creatinine Urine Total Protein Fluid Total Protein Vancomycin Trough Rheumatoid Factor Complement C4 Miscellaneous Test Crossmatch 09/07/16 09/07/16 09/07/16 09:20 11:43 11:43 WBC 19.4 H RBC Hgb 8.3 L Hct 26.4 L D MCV 72 L D MCH 22 L MCHC RDW 17.9 H Plt Count Lymph % (Auto) 8.5 L [place] % (Auto) Lymph # [place] # 1.0 H Baso # Seg Neutrophils % 85.8 H Seg Neuts % (Manual) Lymphocytes % (Manual) Monocytes % (Manual) Eosinophils % (Manual) Basophils % (Manual) Nucleated RBC % Seg Neutrophils # 16.6 H Seg Neutrophils # Man Lymphocytes # (Manual) Monocytes # (Manual) Eosinophils # (Manual) PT INR Fibrinogen dRVVT Confirm Interp Factor V Activity POC ABG pH POC ABG pCO2 POC ABG pO2 Sodium 134 L Potassium Chloride 97.2 L Carbon Dioxide 20 L BUN 58 H Creatinine 2.9 H Glucose 147 H POC Glucose Lactic Acid Calcium Phosphorus 2.40 L Magnesium 2.40 H Direct Bilirubin AST ALT Alkaline Phosphatase Lactate Dehydrogenase Troponin T C-Reactive Protein Total Protein 5.8 L Albumin 2.2 L Prealbumin Triglycerides Cholesterol LDL Cholesterol Direct HDL Cholesterol Urine pH Urine WBC (Auto) Urine Creatinine Urine Total Protein Fluid Total Protein Vancomycin Trough Rheumatoid Factor Complement C4 58 H Miscellaneous Test Crossmatch 09/07/16 09/07/16 09/07/16 11:50 16:00 17:31 WBC RBC Hgb Hct MCV MCH MCHC RDW Plt Count Lymph % (Auto) [place] % (Auto) Lymph # [place] # Baso # Seg Neutrophils % Seg Neuts % (Manual) Lymphocytes % (Manual) Monocytes % (Manual) Eosinophils % (Manual) Basophils % (Manual) Nucleated RBC % Seg Neutrophils # Seg Neutrophils # Man Lymphocytes # (Manual) Monocytes # (Manual) Eosinophils # (Manual) PT INR Fibrinogen dRVVT Confirm Interp Factor V Activity POC ABG pH POC ABG pCO2 POC ABG pO2 158 H Sodium Potassium Chloride Carbon Dioxide BUN Creatinine Glucose POC Glucose 175 H Lactic Acid Calcium Phosphorus Magnesium Direct Bilirubin AST ALT Alkaline Phosphatase Lactate Dehydrogenase Troponin T C-Reactive Protein Total Protein Albumin Prealbumin Triglycerides Cholesterol LDL Cholesterol Direct HDL Cholesterol Urine pH Urine WBC (Auto) Urine Creatinine 66.3 H Urine Total Protein Fluid Total Protein Vancomycin Trough Rheumatoid Factor Complement C4 Miscellaneous Test Crossmatch 09/07/16 09/08/16 09/08/16 23:50 05:46 06:18 WBC 17.8 H RBC 3.58 L Hgb 8.1 L Hct 25.5 L MCV 71 L MCH 23 L MCHC RDW 18.4 H Plt Count Lymph % (Auto) [place] % (Auto) Lymph # [place] # Baso # Seg Neutrophils % Seg Neuts % (Manual) 92.0 H Lymphocytes % (Manual) 6.0 L Monocytes % (Manual) Eosinophils % (Manual) Basophils % (Manual) Nucleated RBC % Seg Neutrophils # Seg Neutrophils # Man 16.4 H Lymphocytes # (Manual) 1.1 L Monocytes # (Manual) Eosinophils # (Manual) PT INR Fibrinogen dRVVT Confirm Interp Factor V Activity POC ABG pH POC ABG pCO2 34.3 L POC ABG pO2 71 L Sodium Potassium Chloride Carbon Dioxide BUN Creatinine Glucose POC Glucose 216 H Lactic Acid Calcium Phosphorus Magnesium Direct Bilirubin AST ALT Alkaline Phosphatase Lactate Dehydrogenase Troponin T C-Reactive Protein Total Protein Albumin Prealbumin Triglycerides Cholesterol LDL Cholesterol Direct HDL Cholesterol Urine pH Urine WBC (Auto) Urine Creatinine Urine Total Protein Fluid Total Protein Vancomycin Trough Rheumatoid Factor Complement C4 Miscellaneous Test Crossmatch 09/08/16 09/08/16 09/08/16 06:18 06:51 10:55 WBC RBC Hgb Hct MCV MCH MCHC RDW Plt Count Lymph % (Auto) [place] % (Auto) Lymph # [place] # Baso # Seg Neutrophils % Seg Neuts % (Manual) Lymphocytes % (Manual) Monocytes % (Manual) Eosinophils % (Manual) Basophils % (Manual) Nucleated RBC % Seg Neutrophils # Seg Neutrophils # Man Lymphocytes # (Manual) Monocytes # (Manual) Eosinophils # (Manual) PT INR Fibrinogen dRVVT Confirm Interp Factor V Activity POC ABG pH POC ABG pCO2 POC ABG pO2 Sodium 133 L Potassium Chloride 96.9 L Carbon Dioxide 20 L BUN 63 H Creatinine 2.7 H Glucose 195 H POC Glucose 204 H 169 H Lactic Acid Calcium Phosphorus Magnesium Direct Bilirubin AST ALT Alkaline Phosphatase Lactate Dehydrogenase Troponin T C-Reactive Protein Total Protein Albumin Prealbumin Triglycerides Cholesterol LDL Cholesterol Direct HDL Cholesterol Urine pH Urine WBC (Auto) Urine Creatinine Urine Total Protein Fluid Total Protein Vancomycin Trough Rheumatoid Factor Complement C4 Miscellaneous Test Crossmatch 09/08/16 09/08/16 09/08/16 11:48 11:48 11:48 WBC RBC Hgb Hct MCV MCH MCHC RDW Plt Count Lymph % (Auto) [place] % (Auto) Lymph # [place] # Baso # Seg Neutrophils % Seg Neuts % (Manual) Lymphocytes % (Manual) Monocytes % (Manual) Eosinophils % (Manual) Basophils % (Manual) Nucleated RBC % Seg Neutrophils # Seg Neutrophils # Man Lymphocytes # (Manual) Monocytes # (Manual) Eosinophils # (Manual) PT INR Fibrinogen 750 H dRVVT Confirm Interp Factor V Activity POC ABG pH POC ABG pCO2 POC ABG pO2 Sodium Potassium Chloride Carbon Dioxide BUN Creatinine Glucose POC Glucose Lactic Acid Calcium Phosphorus Magnesium Direct Bilirubin AST ALT Alkaline Phosphatase Lactate Dehydrogenase Troponin T C-Reactive Protein 15.70 H Total Protein Albumin Prealbumin Triglycerides Cholesterol LDL Cholesterol Direct HDL Cholesterol Urine pH Urine WBC (Auto) Urine Creatinine Urine Total Protein Fluid Total Protein Vancomycin Trough Rheumatoid Factor 24 H Complement C4 Miscellaneous Test Crossmatch 09/08/16 09/08/16 09/09/16 15:35 18:25 00:24 WBC RBC Hgb Hct MCV MCH MCHC RDW Plt Count Lymph % (Auto) [place] % (Auto) Lymph # [place] # Baso # Seg Neutrophils % Seg Neuts % (Manual) Lymphocytes % (Manual) Monocytes % (Manual) Eosinophils % (Manual) Basophils % (Manual) Nucleated RBC % Seg Neutrophils # Seg Neutrophils # Man Lymphocytes # (Manual) Monocytes # (Manual) Eosinophils # (Manual) PT INR Fibrinogen dRVVT Confirm Interp Factor V Activity 182 H POC ABG pH POC ABG pCO2 POC ABG pO2 Sodium Potassium Chloride Carbon Dioxide BUN Creatinine Glucose POC Glucose 184 H 216 H Lactic Acid Calcium Phosphorus Magnesium Direct Bilirubin AST ALT Alkaline Phosphatase Lactate Dehydrogenase Troponin T C-Reactive Protein Total Protein Albumin Prealbumin Triglycerides Cholesterol LDL Cholesterol Direct HDL Cholesterol Urine pH Urine WBC (Auto) Urine Creatinine Urine Total Protein Fluid Total Protein Vancomycin Trough Rheumatoid Factor Complement C4 Miscellaneous Test Crossmatch 09/09/16 09/09/16 09/09/16 03:00 03:00 04:04 WBC 27.9 H RBC Hgb 8.7 L Hct 28.1 L MCV 72 L MCH 22 L MCHC RDW 18.4 H Plt Count 485 H Lymph % (Auto) [place] % (Auto) Lymph # [place] # Baso # Seg Neutrophils % Seg Neuts % (Manual) 77.0 H Lymphocytes % (Manual) 9.0 L Monocytes % (Manual) Eosinophils % (Manual) Basophils % (Manual) Nucleated RBC % Seg Neutrophils # Seg Neutrophils # Man 21.5 H Lymphocytes # (Manual) Monocytes # (Manual) 2.0 H Eosinophils # (Manual) PT INR Fibrinogen dRVVT Confirm Interp Factor V Activity POC ABG pH POC ABG pCO2 POC ABG pO2 121 H Sodium 135 L Potassium Chloride 96.3 L Carbon Dioxide 21 L BUN 83 H Creatinine 3.0 H Glucose 135 H POC Glucose Lactic Acid Calcium Phosphorus Magnesium Direct Bilirubin AST ALT Alkaline Phosphatase Lactate Dehydrogenase Troponin T C-Reactive Protein Total Protein Albumin Prealbumin Triglycerides Cholesterol LDL Cholesterol Direct HDL Cholesterol Urine pH Urine WBC (Auto) Urine Creatinine Urine Total Protein Fluid Total Protein Vancomycin Trough Rheumatoid Factor Complement C4 Miscellaneous Test Crossmatch 09/09/16 09/09/16 09/09/16 05:41 11:55 14:13 WBC RBC Hgb Hct MCV MCH MCHC RDW Plt Count Lymph % (Auto) [place] % (Auto) Lymph # [place] # Baso # Seg Neutrophils % Seg Neuts % (Manual) Lymphocytes % (Manual) Monocytes % (Manual) Eosinophils % (Manual) Basophils % (Manual) Nucleated RBC % Seg Neutrophils # Seg Neutrophils # Man Lymphocytes # (Manual) Monocytes # (Manual) Eosinophils # (Manual) PT INR Fibrinogen dRVVT Confirm Interp Factor V Activity POC ABG pH POC ABG pCO2 POC ABG pO2 Sodium Potassium Chloride Carbon Dioxide BUN Creatinine Glucose POC Glucose 155 H 186 H Lactic Acid Calcium Phosphorus Magnesium Direct Bilirubin AST ALT Alkaline Phosphatase Lactate Dehydrogenase Troponin T C-Reactive Protein Total Protein Albumin Prealbumin Triglycerides Cholesterol LDL Cholesterol Direct HDL Cholesterol Urine pH Urine WBC (Auto) 25.0 H Urine Creatinine Urine Total Protein Fluid Total Protein Vancomycin Trough Rheumatoid Factor Complement C4 Miscellaneous Test Crossmatch 09/09/16 09/09/16 09/10/16 17:33 23:13 05:09 WBC RBC Hgb Hct MCV MCH MCHC RDW Plt Count Lymph % (Auto) [place] % (Auto) Lymph # [place] # Baso # Seg Neutrophils % Seg Neuts % (Manual) Lymphocytes % (Manual) Monocytes % (Manual) Eosinophils % (Manual) Basophils % (Manual) Nucleated RBC % Seg Neutrophils # Seg Neutrophils # Man Lymphocytes # (Manual) Monocytes # (Manual) Eosinophils # (Manual) PT INR Fibrinogen dRVVT Confirm Interp Factor V Activity POC ABG pH POC ABG pCO2 POC ABG pO2 74 L Sodium Potassium Chloride Carbon Dioxide BUN Creatinine Glucose POC Glucose 211 H 215 H Lactic Acid Calcium Phosphorus Magnesium Direct Bilirubin AST ALT Alkaline Phosphatase Lactate Dehydrogenase Troponin T C-Reactive Protein Total Protein Albumin Prealbumin Triglycerides Cholesterol LDL Cholesterol Direct HDL Cholesterol Urine pH Urine WBC (Auto) Urine Creatinine Urine Total Protein Fluid Total Protein Vancomycin Trough Rheumatoid Factor Complement C4 Miscellaneous Test Crossmatch 09/10/16 09/10/16 09/10/16 05:17 05:17 11:31 WBC 15.8 H RBC 3.25 L Hgb 7.3 L Hct 22.9 L MCV 71 L MCH 23 L MCHC RDW 18.4 H Plt Count Lymph % (Auto) [place] % (Auto) Lymph # [place] # Baso # Seg Neutrophils % Seg Neuts % (Manual) 91.0 H Lymphocytes % (Manual) 4.0 L Monocytes % (Manual) Eosinophils % (Manual) Basophils % (Manual) Nucleated RBC % Seg Neutrophils # Seg Neutrophils # Man 14.4 H Lymphocytes # (Manual) 0.6 L Monocytes # (Manual) Eosinophils # (Manual) PT INR Fibrinogen dRVVT Confirm Interp Factor V Activity POC ABG pH POC ABG pCO2 POC ABG pO2 Sodium Potassium Chloride Carbon Dioxide 21 L BUN 93 H Creatinine 2.9 H Glucose 146 H POC Glucose 188 H Lactic Acid Calcium 8.1 L Phosphorus Magnesium Direct Bilirubin AST ALT Alkaline Phosphatase Lactate Dehydrogenase Troponin T C-Reactive Protein Total Protein Albumin Prealbumin Triglycerides Cholesterol LDL Cholesterol Direct HDL Cholesterol Urine pH Urine WBC (Auto) Urine Creatinine Urine Total Protein Fluid Total Protein Vancomycin Trough Rheumatoid Factor Complement C4 Miscellaneous Test Crossmatch 09/10/16 09/10/16 09/10/16 13:17 17:20 23:32 WBC RBC Hgb Hct MCV MCH MCHC RDW Plt Count Lymph % (Auto) [place] % (Auto) Lymph # [place] # Baso # Seg Neutrophils % Seg Neuts % (Manual) Lymphocytes % (Manual) Monocytes % (Manual) Eosinophils % (Manual) Basophils % (Manual) Nucleated RBC % Seg Neutrophils # Seg Neutrophils # Man Lymphocytes # (Manual) Monocytes # (Manual) Eosinophils # (Manual) PT INR Fibrinogen dRVVT Confirm Interp Factor V Activity POC ABG pH POC ABG pCO2 POC ABG pO2 Sodium Potassium Chloride Carbon Dioxide BUN Creatinine Glucose POC Glucose 199 H 186 H Lactic Acid Calcium Phosphorus Magnesium Direct Bilirubin AST ALT Alkaline Phosphatase Lactate Dehydrogenase Troponin T C-Reactive Protein Total Protein Albumin Prealbumin Triglycerides Cholesterol LDL Cholesterol Direct HDL Cholesterol Urine pH Urine WBC (Auto) Urine Creatinine Urine Total Protein Fluid Total Protein Vancomycin Trough Rheumatoid Factor Complement C4 Miscellaneous Test Crossmatch See Detail 09/11/16 09/11/16 09/11/16 05:10 05:10 05:17 WBC 28.4 H RBC Hgb 9.2 L Hct 29.3 L D MCV 73 L MCH 23 L MCHC RDW 18.9 H Plt Count 452 H Lymph % (Auto) [place] % (Auto) Lymph # [place] # Baso # Seg Neutrophils % Seg Neuts % (Manual) 89.5 H Lymphocytes % (Manual) 2.0 L Monocytes % (Manual) Eosinophils % (Manual) Basophils % (Manual) Nucleated RBC % Seg Neutrophils # Seg Neutrophils # Man 25.4 H Lymphocytes # (Manual) 0.6 L Monocytes # (Manual) 1.3 H Eosinophils # (Manual) PT INR Fibrinogen dRVVT Confirm Interp Factor V Activity POC ABG pH POC ABG pCO2 POC ABG pO2 Sodium 136 L Potassium Chloride Carbon Dioxide 18 L BUN 107 H Creatinine 2.6 H Glucose 187 H POC Glucose 230 H Lactic Acid Calcium 8.3 L Phosphorus Magnesium Direct Bilirubin AST ALT Alkaline Phosphatase Lactate Dehydrogenase Troponin T C-Reactive Protein Total Protein Albumin Prealbumin Triglycerides Cholesterol LDL Cholesterol Direct HDL Cholesterol Urine pH Urine WBC (Auto) Urine Creatinine Urine Total Protein Fluid Total Protein Vancomycin Trough Rheumatoid Factor Complement C4 Miscellaneous Test Crossmatch 09/11/16 09/11/16 09/11/16 05:55 12:02 17:32 WBC RBC Hgb Hct MCV MCH MCHC RDW Plt Count Lymph % (Auto) [place] % (Auto) Lymph # [place] # Baso # Seg Neutrophils % Seg Neuts % (Manual) Lymphocytes % (Manual) Monocytes % (Manual) Eosinophils % (Manual) Basophils % (Manual) Nucleated RBC % Seg Neutrophils # Seg Neutrophils # Man Lymphocytes # (Manual) Monocytes # (Manual) Eosinophils # (Manual) PT INR Fibrinogen dRVVT Confirm Interp Factor V Activity POC ABG pH POC ABG pCO2 33.8 L POC ABG pO2 Sodium Potassium Chloride Carbon Dioxide BUN Creatinine Glucose POC Glucose 191 H 239 H Lactic Acid Calcium Phosphorus Magnesium Direct Bilirubin AST ALT Alkaline Phosphatase Lactate Dehydrogenase Troponin T C-Reactive Protein Total Protein Albumin Prealbumin Triglycerides Cholesterol LDL Cholesterol Direct HDL Cholesterol Urine pH Urine WBC (Auto) Urine Creatinine Urine Total Protein Fluid Total Protein Vancomycin Trough Rheumatoid Factor Complement C4 Miscellaneous Test Crossmatch 09/11/16 09/12/16 09/12/16 23:52 05:09 05:32 WBC RBC Hgb Hct MCV MCH MCHC RDW Plt Count Lymph % (Auto) [place] % (Auto) Lymph # [place] # Baso # Seg Neutrophils % Seg Neuts % (Manual) Lymphocytes % (Manual) Monocytes % (Manual) Eosinophils % (Manual) Basophils % (Manual) Nucleated RBC % Seg Neutrophils # Seg Neutrophils # Man Lymphocytes # (Manual) Monocytes # (Manual) Eosinophils # (Manual) PT INR Fibrinogen dRVVT Confirm Interp Factor V Activity POC ABG pH POC ABG pCO2 34.6 L POC ABG pO2 Sodium Potassium Chloride Carbon Dioxide BUN Creatinine Glucose POC Glucose 265 H 184 H Lactic Acid Calcium Phosphorus Magnesium Direct Bilirubin AST ALT Alkaline Phosphatase Lactate Dehydrogenase Troponin T C-Reactive Protein Total Protein Albumin Prealbumin Triglycerides Cholesterol LDL Cholesterol Direct HDL Cholesterol Urine pH Urine WBC (Auto) Urine Creatinine Urine Total Protein Fluid Total Protein Vancomycin Trough Rheumatoid Factor Complement C4 Miscellaneous Test Crossmatch 09/12/16 09/12/16 09/12/16 06:45 06:45 07:22 WBC 31.7 H RBC 3.54 L Hgb 8.3 L Hct 25.9 L MCV 73 L MCH 23 L MCHC RDW 18.9 H Plt Count Lymph % (Auto) [place] % (Auto) Lymph # [place] # Baso # Seg Neutrophils % Seg Neuts % (Manual) 88.5 H Lymphocytes % (Manual) 4.5 L Monocytes % (Manual) Eosinophils % (Manual) Basophils % (Manual) Nucleated RBC % Seg Neutrophils # Seg Neutrophils # Man 28.1 H Lymphocytes # (Manual) Monocytes # (Manual) 1.0 H Eosinophils # (Manual) PT INR Fibrinogen dRVVT Confirm Interp Factor V Activity POC ABG pH POC ABG pCO2 POC ABG pO2 Sodium Potassium Chloride Carbon Dioxide 20 L BUN 115 H Creatinine 2.7 H Glucose 165 H POC Glucose Lactic Acid Calcium 8.0 L Phosphorus Magnesium Direct Bilirubin AST ALT Alkaline Phosphatase Lactate Dehydrogenase Troponin T C-Reactive Protein Total Protein Albumin Prealbumin Triglycerides 217 H Cholesterol LDL Cholesterol Direct HDL Cholesterol Urine pH Urine WBC (Auto) Urine Creatinine Urine Total Protein Fluid Total Protein Vancomycin Trough Rheumatoid Factor Complement C4 Miscellaneous Test Crossmatch 09/12/16 09/12/16 09/12/16 07:22 09:59 12:21 WBC RBC Hgb Hct MCV MCH MCHC RDW Plt Count Lymph % (Auto) [place] % (Auto) Lymph # [place] # Baso # Seg Neutrophils % Seg Neuts % (Manual) Lymphocytes % (Manual) Monocytes % (Manual) Eosinophils % (Manual) Basophils % (Manual) Nucleated RBC % Seg Neutrophils # Seg Neutrophils # Man Lymphocytes # (Manual) Monocytes # (Manual) Eosinophils # (Manual) PT INR Fibrinogen dRVVT Confirm Interp Positive H Factor V Activity POC ABG pH POC ABG pCO2 POC ABG pO2 Sodium Potassium Chloride Carbon Dioxide BUN Creatinine Glucose POC Glucose 224 H Lactic Acid Calcium Phosphorus Magnesium Direct Bilirubin AST ALT Alkaline Phosphatase Lactate Dehydrogenase Troponin T C-Reactive Protein 1.70 H Total Protein Albumin Prealbumin Triglycerides Cholesterol LDL Cholesterol Direct HDL Cholesterol Urine pH Urine WBC (Auto) Urine Creatinine Urine Total Protein Fluid Total Protein Vancomycin Trough Rheumatoid Factor Complement C4 Miscellaneous Test Crossmatch 09/12/16 09/12/16 09/13/16 16:51 23:28 04:00 WBC 45.0 H* RBC Hgb 9.4 L Hct MCV 75 L MCH 23 L MCHC RDW 19.0 H Plt Count 470 H Lymph % (Auto) [place] % (Auto) Lymph # [place] # Baso # Seg Neutrophils % Seg Neuts % (Manual) 89.0 H Lymphocytes % (Manual) 5.0 L Monocytes % (Manual) Eosinophils % (Manual) Basophils % (Manual) Nucleated RBC % Seg Neutrophils # Seg Neutrophils # Man 40.1 H Lymphocytes # (Manual) Monocytes # (Manual) Eosinophils # (Manual) PT INR Fibrinogen dRVVT Confirm Interp Factor V Activity POC ABG pH POC ABG pCO2 POC ABG pO2 Sodium Potassium Chloride Carbon Dioxide BUN Creatinine Glucose POC Glucose 169 H 150 H Lactic Acid Calcium Phosphorus Magnesium Direct Bilirubin AST ALT Alkaline Phosphatase Lactate Dehydrogenase Troponin T C-Reactive Protein Total Protein Albumin Prealbumin Triglycerides Cholesterol LDL Cholesterol Direct HDL Cholesterol Urine pH Urine WBC (Auto) Urine Creatinine Urine Total Protein Fluid Total Protein Vancomycin Trough Rheumatoid Factor Complement C4 Miscellaneous Test Crossmatch 09/13/16 09/13/16 09/13/16 04:00 11:26 17:31 WBC RBC Hgb Hct MCV MCH MCHC RDW Plt Count Lymph % (Auto) [place] % (Auto) Lymph # [place] # Baso # Seg Neutrophils % Seg Neuts % (Manual) Lymphocytes % (Manual) Monocytes % (Manual) Eosinophils % (Manual) Basophils % (Manual) Nucleated RBC % Seg Neutrophils # Seg Neutrophils # Man Lymphocytes # (Manual) Monocytes # (Manual) Eosinophils # (Manual) PT INR Fibrinogen dRVVT Confirm Interp Factor V Activity POC ABG pH POC ABG pCO2 POC ABG pO2 Sodium Potassium Chloride Carbon Dioxide 20 L BUN 116 H Creatinine 3.0 H Glucose 172 H POC Glucose 140 H 183 H Lactic Acid Calcium Phosphorus Magnesium Direct Bilirubin AST ALT Alkaline Phosphatase Lactate Dehydrogenase Troponin T C-Reactive Protein Total Protein 6.2 L Albumin 2.9 L Prealbumin Triglycerides Cholesterol LDL Cholesterol Direct HDL Cholesterol Urine pH Urine WBC (Auto) Urine Creatinine Urine Total Protein Fluid Total Protein Vancomycin Trough Rheumatoid Factor Complement C4 Miscellaneous Test Crossmatch 09/13/16 09/14/16 09/14/16 23:23 04:06 04:07 WBC 29.4 H RBC Hgb 8.9 L Hct 27.3 L MCV 75 L MCH 24 L MCHC RDW 19.1 H Plt Count Lymph % (Auto) [place] % (Auto) Lymph # [place] # Baso # Seg Neutrophils % Seg Neuts % (Manual) 84.0 H Lymphocytes % (Manual) 6.0 L Monocytes % (Manual) 9.0 H Eosinophils % (Manual) Basophils % (Manual) Nucleated RBC % Seg Neutrophils # Seg Neutrophils # Man 24.7 H Lymphocytes # (Manual) Monocytes # (Manual) 2.6 H Eosinophils # (Manual) PT INR Fibrinogen dRVVT Confirm Interp Factor V Activity POC ABG pH 7.342 L POC ABG pCO2 POC ABG pO2 116 H Sodium Potassium Chloride Carbon Dioxide BUN Creatinine Glucose POC Glucose 154 H Lactic Acid Calcium Phosphorus Magnesium Direct Bilirubin AST ALT Alkaline Phosphatase Lactate Dehydrogenase Troponin T C-Reactive Protein Total Protein Albumin Prealbumin Triglycerides Cholesterol LDL Cholesterol Direct HDL Cholesterol Urine pH Urine WBC (Auto) Urine Creatinine Urine Total Protein Fluid Total Protein Vancomycin Trough Rheumatoid Factor Complement C4 Miscellaneous Test Crossmatch 09/14/16 09/14/16 09/14/16 04:07 05:29 12:19 WBC RBC Hgb Hct MCV MCH MCHC RDW Plt Count Lymph % (Auto) [place] % (Auto) Lymph # [place] # Baso # Seg Neutrophils % Seg Neuts % (Manual) Lymphocytes % (Manual) Monocytes % (Manual) Eosinophils % (Manual) Basophils % (Manual) Nucleated RBC % Seg Neutrophils # Seg Neutrophils # Man Lymphocytes # (Manual) Monocytes # (Manual) Eosinophils # (Manual) PT INR Fibrinogen dRVVT Confirm Interp Factor V Activity POC ABG pH POC ABG pCO2 POC ABG pO2 Sodium 136 L Potassium Chloride Carbon Dioxide 18 L BUN 121 H Creatinine 2.8 H Glucose 214 H POC Glucose 239 H 181 H Lactic Acid Calcium Phosphorus Magnesium Direct Bilirubin AST ALT Alkaline Phosphatase Lactate Dehydrogenase Troponin T C-Reactive Protein Total Protein Albumin Prealbumin Triglycerides Cholesterol LDL Cholesterol Direct HDL Cholesterol Urine pH Urine WBC (Auto) Urine Creatinine Urine Total Protein Fluid Total Protein Vancomycin Trough Rheumatoid Factor Complement C4 Miscellaneous Test Crossmatch 09/14/16 09/14/16 09/15/16 18:12 23:37 05:00 WBC 26.1 H RBC 3.05 L Hgb 7.2 L Hct 22.9 L MCV 75 L MCH 24 L MCHC RDW 19.0 H Plt Count Lymph % (Auto) [place] % (Auto) Lymph # [place] # Baso # Seg Neutrophils % Seg Neuts % (Manual) Lymphocytes % (Manual) Monocytes % (Manual) Eosinophils % (Manual) Basophils % (Manual) Nucleated RBC % Seg Neutrophils # Seg Neutrophils # Man Lymphocytes # (Manual) Monocytes # (Manual) Eosinophils # (Manual) PT INR Fibrinogen dRVVT Confirm Interp Factor V Activity POC ABG pH POC ABG pCO2 POC ABG pO2 Sodium Potassium Chloride Carbon Dioxide BUN Creatinine Glucose POC Glucose 266 H 154 H Lactic Acid Calcium Phosphorus Magnesium Direct Bilirubin AST ALT Alkaline Phosphatase Lactate Dehydrogenase Troponin T C-Reactive Protein Total Protein Albumin Prealbumin Triglycerides Cholesterol LDL Cholesterol Direct HDL Cholesterol Urine pH Urine WBC (Auto) Urine Creatinine Urine Total Protein Fluid Total Protein Vancomycin Trough Rheumatoid Factor Complement C4 Miscellaneous Test Crossmatch 09/15/16 09/15/16 09/15/16 05:00 05:17 12:45 WBC RBC Hgb Hct MCV MCH MCHC RDW Plt Count Lymph % (Auto) [place] % (Auto) Lymph # [place] # Baso # Seg Neutrophils % Seg Neuts % (Manual) Lymphocytes % (Manual) Monocytes % (Manual) Eosinophils % (Manual) Basophils % (Manual) Nucleated RBC % Seg Neutrophils # Seg Neutrophils # Man Lymphocytes # (Manual) Monocytes # (Manual) Eosinophils # (Manual) PT INR Fibrinogen dRVVT Confirm Interp Factor V Activity POC ABG pH POC ABG pCO2 POC ABG pO2 Sodium Potassium 5.2 H Chloride Carbon Dioxide 18 L BUN 139 H Creatinine 3.7 H Glucose 227 H POC Glucose 226 H 244 H Lactic Acid Calcium 8.3 L Phosphorus Magnesium Direct Bilirubin AST ALT Alkaline Phosphatase Lactate Dehydrogenase Troponin T C-Reactive Protein Total Protein Albumin Prealbumin Triglycerides Cholesterol LDL Cholesterol Direct HDL Cholesterol Urine pH Urine WBC (Auto) Urine Creatinine Urine Total Protein Fluid Total Protein Vancomycin Trough Rheumatoid Factor Complement C4 Miscellaneous Test Crossmatch 09/15/16 09/15/16 09/15/16 14:32 17:33 23:35 WBC RBC Hgb Hct MCV MCH MCHC RDW Plt Count Lymph % (Auto) [place] % (Auto) Lymph # [place] # Baso # Seg Neutrophils % Seg Neuts % (Manual) Lymphocytes % (Manual) Monocytes % (Manual) Eosinophils % (Manual) Basophils % (Manual) Nucleated RBC % Seg Neutrophils # Seg Neutrophils # Man Lymphocytes # (Manual) Monocytes # (Manual) Eosinophils # (Manual) PT INR Fibrinogen dRVVT Confirm Interp Factor V Activity POC ABG pH POC ABG pCO2 27.7 L POC ABG pO2 120 H Sodium Potassium Chloride Carbon Dioxide BUN Creatinine Glucose POC Glucose 232 H 167 H Lactic Acid Calcium Phosphorus Magnesium Direct Bilirubin AST ALT Alkaline Phosphatase Lactate Dehydrogenase Troponin T C-Reactive Protein Total Protein Albumin Prealbumin Triglycerides Cholesterol LDL Cholesterol Direct HDL Cholesterol Urine pH Urine WBC (Auto) Urine Creatinine Urine Total Protein Fluid Total Protein Vancomycin Trough Rheumatoid Factor Complement C4 Miscellaneous Test Crossmatch 09/16/16 09/16/16 09/16/16 03:58 10:27 10:27 WBC 19.0 H RBC 2.77 L Hgb 6.5 L Hct 20.9 L MCV 76 L MCH 23 L MCHC RDW 19.3 H Plt Count Lymph % (Auto) 11.0 L [place] % (Auto) Lymph # [place] # 1.1 H Baso # Seg Neutrophils % 82.5 H Seg Neuts % (Manual) Lymphocytes % (Manual) Monocytes % (Manual) Eosinophils % (Manual) Basophils % (Manual) Nucleated RBC % Seg Neutrophils # 15.7 H Seg Neutrophils # Man Lymphocytes # (Manual) Monocytes # (Manual) Eosinophils # (Manual) PT INR Fibrinogen dRVVT Confirm Interp Factor V Activity POC ABG pH POC ABG pCO2 POC ABG pO2 Sodium Potassium Chloride 109.3 H Carbon Dioxide 18 L BUN 139 H Creatinine 4.1 H Glucose 144 H POC Glucose 146 H Lactic Acid Calcium 8.1 L Phosphorus Magnesium Direct Bilirubin AST ALT Alkaline Phosphatase Lactate Dehydrogenase Troponin T C-Reactive Protein Total Protein Albumin Prealbumin Triglycerides Cholesterol LDL Cholesterol Direct HDL Cholesterol Urine pH Urine WBC (Auto) Urine Creatinine Urine Total Protein Fluid Total Protein Vancomycin Trough Rheumatoid Factor Complement C4 Miscellaneous Test Crossmatch 09/16/16 09/16/16 09/16/16 12:04 12:10 13:55 WBC RBC Hgb Hct MCV MCH MCHC RDW Plt Count Lymph % (Auto) [place] % (Auto) Lymph # [place] # Baso # Seg Neutrophils % Seg Neuts % (Manual) Lymphocytes % (Manual) Monocytes % (Manual) Eosinophils % (Manual) Basophils % (Manual) Nucleated RBC % Seg Neutrophils # Seg Neutrophils # Man Lymphocytes # (Manual) Monocytes # (Manual) Eosinophils # (Manual) PT INR Fibrinogen dRVVT Confirm Interp Factor V Activity POC ABG pH POC ABG pCO2 32.9 L POC ABG pO2 Sodium Potassium Chloride Carbon Dioxide BUN Creatinine Glucose POC Glucose 185 H Lactic Acid Calcium Phosphorus Magnesium Direct Bilirubin AST ALT Alkaline Phosphatase Lactate Dehydrogenase Troponin T C-Reactive Protein Total Protein Albumin Prealbumin Triglycerides Cholesterol LDL Cholesterol Direct HDL Cholesterol Urine pH Urine WBC (Auto) Urine Creatinine Urine Total Protein Fluid Total Protein Vancomycin Trough Rheumatoid Factor Complement C4 Miscellaneous Test Crossmatch See Detail 09/16/16 09/16/16 09/16/16 17:55 19:19 23:48 WBC RBC Hgb Hct MCV MCH MCHC RDW Plt Count Lymph % (Auto) [place] % (Auto) Lymph # [place] # Baso # Seg Neutrophils % Seg Neuts % (Manual) Lymphocytes % (Manual) Monocytes % (Manual) Eosinophils % (Manual) Basophils % (Manual) Nucleated RBC % Seg Neutrophils # Seg Neutrophils # Man Lymphocytes # (Manual) Monocytes # (Manual) Eosinophils # (Manual) PT INR Fibrinogen dRVVT Confirm Interp Factor V Activity POC ABG pH POC ABG pCO2 POC ABG pO2 Sodium Potassium Chloride Carbon Dioxide BUN Creatinine Glucose POC Glucose 222 H 107 H Lactic Acid Calcium Phosphorus Magnesium Direct Bilirubin AST ALT Alkaline Phosphatase Lactate Dehydrogenase Troponin T C-Reactive Protein Total Protein Albumin Prealbumin Triglycerides Cholesterol LDL Cholesterol Direct HDL Cholesterol Urine pH Urine WBC (Auto) Urine Creatinine 47.4 H Urine Total Protein 16 H Fluid Total Protein Vancomycin Trough Rheumatoid Factor Complement C4 Miscellaneous Test Crossmatch 09/17/16 09/17/16 09/17/16 03:45 03:45 04:55 WBC 19.6 H RBC 3.41 L Hgb 8.5 L Hct 26.7 L MCV 78 L MCH 25 L MCHC RDW 19.9 H Plt Count Lymph % (Auto) 9.3 L [place] % (Auto) Lymph # [place] # 1.2 H Baso # Seg Neutrophils % 83.9 H Seg Neuts % (Manual) Lymphocytes % (Manual) Monocytes % (Manual) Eosinophils % (Manual) Basophils % (Manual) Nucleated RBC % Seg Neutrophils # 16.4 H Seg Neutrophils # Man Lymphocytes # (Manual) Monocytes # (Manual) Eosinophils # (Manual) PT INR Fibrinogen dRVVT Confirm Interp Factor V Activity POC ABG pH POC ABG pCO2 POC ABG pO2 Sodium 146 H Potassium 5.1 H Chloride 110.9 H Carbon Dioxide 16 L BUN 146 H Creatinine 4.0 H Glucose 108 H POC Glucose 133 H Lactic Acid Calcium Phosphorus Magnesium 3.00 H Direct Bilirubin AST ALT Alkaline Phosphatase Lactate Dehydrogenase Troponin T C-Reactive Protein Total Protein Albumin Prealbumin Triglycerides Cholesterol LDL Cholesterol Direct HDL Cholesterol Urine pH Urine WBC (Auto) Urine Creatinine Urine Total Protein Fluid Total Protein Vancomycin Trough Rheumatoid Factor Complement C4 Miscellaneous Test Crossmatch 09/17/16 09/17/16 09/17/16 11:15 17:33 23:47 WBC RBC Hgb Hct MCV MCH MCHC RDW Plt Count Lymph % (Auto) [place] % (Auto) Lymph # [place] # Baso # Seg Neutrophils % Seg Neuts % (Manual) Lymphocytes % (Manual) Monocytes % (Manual) Eosinophils % (Manual) Basophils % (Manual) Nucleated RBC % Seg Neutrophils # Seg Neutrophils # Man Lymphocytes # (Manual) Monocytes # (Manual) Eosinophils # (Manual) PT INR Fibrinogen dRVVT Confirm Interp Factor V Activity POC ABG pH POC ABG pCO2 POC ABG pO2 Sodium Potassium Chloride Carbon Dioxide BUN Creatinine Glucose POC Glucose 176 H 246 H 148 H Lactic Acid Calcium Phosphorus Magnesium Direct Bilirubin AST ALT Alkaline Phosphatase Lactate Dehydrogenase Troponin T C-Reactive Protein Total Protein Albumin Prealbumin Triglycerides Cholesterol LDL Cholesterol Direct HDL Cholesterol Urine pH Urine WBC (Auto) Urine Creatinine Urine Total Protein Fluid Total Protein Vancomycin Trough Rheumatoid Factor Complement C4 Miscellaneous Test Crossmatch 09/18/16 09/18/16 09/18/16 05:33 08:31 08:31 WBC 18.0 H RBC 3.17 L Hgb 9.0 L Hct 25.7 L MCV MCH MCHC 35 H RDW 20.4 H Plt Count Lymph % (Auto) [place] % (Auto) Lymph # [place] # Baso # Seg Neutrophils % Seg Neuts % (Manual) Lymphocytes % (Manual) Monocytes % (Manual) Eosinophils % (Manual) Basophils % (Manual) Nucleated RBC % Seg Neutrophils # Seg Neutrophils # Man Lymphocytes # (Manual) Monocytes # (Manual) Eosinophils # (Manual) PT INR Fibrinogen dRVVT Confirm Interp Factor V Activity POC ABG pH POC ABG pCO2 POC ABG pO2 Sodium Potassium Chloride Carbon Dioxide 15 L BUN 124 H Creatinine 3.8 H Glucose POC Glucose 120 H Lactic Acid Calcium 8.1 L Phosphorus Magnesium Direct Bilirubin AST ALT Alkaline Phosphatase Lactate Dehydrogenase Troponin T C-Reactive Protein Total Protein Albumin Prealbumin Triglycerides Cholesterol LDL Cholesterol Direct HDL Cholesterol Urine pH Urine WBC (Auto) Urine Creatinine Urine Total Protein Fluid Total Protein Vancomycin Trough Rheumatoid Factor Complement C4 Miscellaneous Test Crossmatch 09/18/16 09/18/16 09/18/16 12:03 15:34 17:50 WBC RBC Hgb Hct MCV MCH MCHC RDW Plt Count Lymph % (Auto) [place] % (Auto) Lymph # [place] # Baso # Seg Neutrophils % Seg Neuts % (Manual) Lymphocytes % (Manual) Monocytes % (Manual) Eosinophils % (Manual) Basophils % (Manual) Nucleated RBC % Seg Neutrophils # Seg Neutrophils # Man Lymphocytes # (Manual) Monocytes # (Manual) Eosinophils # (Manual) PT INR Fibrinogen dRVVT Confirm Interp Factor V Activity POC ABG pH POC ABG pCO2 25.7 L POC ABG pO2 66 L Sodium Potassium Chloride Carbon Dioxide BUN Creatinine Glucose POC Glucose 156 H 220 H Lactic Acid Calcium Phosphorus Magnesium Direct Bilirubin AST ALT Alkaline Phosphatase Lactate Dehydrogenase Troponin T C-Reactive Protein Total Protein Albumin Prealbumin Triglycerides Cholesterol LDL Cholesterol Direct HDL Cholesterol Urine pH Urine WBC (Auto) Urine Creatinine Urine Total Protein Fluid Total Protein Vancomycin Trough Rheumatoid Factor Complement C4 Miscellaneous Test Crossmatch 09/19/16 09/19/16 09/19/16 06:21 09:50 09:50 WBC 17.1 H RBC 3.49 L Hgb 9.0 L Hct 28.1 L MCV MCH 26 L MCHC RDW 20.8 H Plt Count Lymph % (Auto) 11.5 L [place] % (Auto) 7.5 H Lymph # [place] # 1.3 H Baso # Seg Neutrophils % 79.8 H Seg Neuts % (Manual) Lymphocytes % (Manual) Monocytes % (Manual) Eosinophils % (Manual) Basophils % (Manual) Nucleated RBC % Seg Neutrophils # 13.7 H Seg Neutrophils # Man Lymphocytes # (Manual) Monocytes # (Manual) Eosinophils # (Manual) PT INR Fibrinogen dRVVT Confirm Interp Factor V Activity POC ABG pH POC ABG pCO2 POC ABG pO2 Sodium Potassium Chloride 108.6 H Carbon Dioxide 15 L BUN 125 H Creatinine 4.1 H Glucose 124 H POC Glucose 119 H Lactic Acid Calcium Phosphorus Magnesium Direct Bilirubin AST ALT Alkaline Phosphatase Lactate Dehydrogenase Troponin T C-Reactive Protein Total Protein Albumin Prealbumin Triglycerides Cholesterol LDL Cholesterol Direct HDL Cholesterol Urine pH Urine WBC (Auto) Urine Creatinine Urine Total Protein Fluid Total Protein Vancomycin Trough Rheumatoid Factor Complement C4 Miscellaneous Test Crossmatch 09/19/16 09/19/16 09/19/16 11:25 17:53 23:36 WBC RBC Hgb Hct MCV MCH MCHC RDW Plt Count Lymph % (Auto) [place] % (Auto) Lymph # [place] # Baso # Seg Neutrophils % Seg Neuts % (Manual) Lymphocytes % (Manual) Monocytes % (Manual) Eosinophils % (Manual) Basophils % (Manual) Nucleated RBC % Seg Neutrophils # Seg Neutrophils # Man Lymphocytes # (Manual) Monocytes # (Manual) Eosinophils # (Manual) PT INR Fibrinogen dRVVT Confirm Interp Factor V Activity POC ABG pH POC ABG pCO2 POC ABG pO2 Sodium Potassium Chloride Carbon Dioxide BUN Creatinine Glucose POC Glucose 160 H 245 H 121 H Lactic Acid Calcium Phosphorus Magnesium Direct Bilirubin AST ALT Alkaline Phosphatase Lactate Dehydrogenase Troponin T C-Reactive Protein Total Protein Albumin Prealbumin Triglycerides Cholesterol LDL Cholesterol Direct HDL Cholesterol Urine pH Urine WBC (Auto) Urine Creatinine Urine Total Protein Fluid Total Protein Vancomycin Trough Rheumatoid Factor Complement C4 Miscellaneous Test Crossmatch 09/20/16 09/20/16 09/20/16 04:10 04:10 04:10 WBC 17.0 H RBC 3.21 L Hgb 8.2 L Hct 25.5 L MCV MCH 26 L MCHC RDW 20.9 H Plt Count Lymph % (Auto) [place] % (Auto) Lymph # [place] # Baso # Seg Neutrophils % Seg Neuts % (Manual) Lymphocytes % (Manual) Monocytes % (Manual) Eosinophils % (Manual) Basophils % (Manual) Nucleated RBC % Seg Neutrophils # Seg Neutrophils # Man Lymphocytes # (Manual) Monocytes # (Manual) Eosinophils # (Manual) PT INR Fibrinogen dRVVT Confirm Interp Factor V Activity POC ABG pH POC ABG pCO2 POC ABG pO2 Sodium Potassium Chloride 111.0 H Carbon Dioxide 16 L BUN 129 H Creatinine 3.7 H Glucose 115 H POC Glucose Lactic Acid Calcium 8.2 L Phosphorus Magnesium Direct Bilirubin AST ALT Alkaline Phosphatase Lactate Dehydrogenase Troponin T C-Reactive Protein Total Protein Albumin Prealbumin Triglycerides 243 H Cholesterol LDL Cholesterol Direct HDL Cholesterol Urine pH Urine WBC (Auto) Urine Creatinine Urine Total Protein Fluid Total Protein Vancomycin Trough Rheumatoid Factor Complement C4 Miscellaneous Test Crossmatch 09/20/16 09/20/16 09/20/16 05:40 11:52 16:50 WBC RBC Hgb Hct MCV MCH MCHC RDW Plt Count Lymph % (Auto) [place] % (Auto) Lymph # [place] # Baso # Seg Neutrophils % Seg Neuts % (Manual) Lymphocytes % (Manual) Monocytes % (Manual) Eosinophils % (Manual) Basophils % (Manual) Nucleated RBC % Seg Neutrophils # Seg Neutrophils # Man Lymphocytes # (Manual) Monocytes # (Manual) Eosinophils # (Manual) PT INR Fibrinogen dRVVT Confirm Interp Factor V Activity POC ABG pH POC ABG pCO2 POC ABG pO2 Sodium Potassium Chloride Carbon Dioxide BUN Creatinine Glucose POC Glucose 131 H 183 H 236 H Lactic Acid Calcium Phosphorus Magnesium Direct Bilirubin AST ALT Alkaline Phosphatase Lactate Dehydrogenase Troponin T C-Reactive Protein Total Protein Albumin Prealbumin Triglycerides Cholesterol LDL Cholesterol Direct HDL Cholesterol Urine pH Urine WBC (Auto) Urine Creatinine Urine Total Protein Fluid Total Protein Vancomycin Trough Rheumatoid Factor Complement C4 Miscellaneous Test Crossmatch 09/20/16 09/21/16 09/21/16 23:51 03:30 04:44 WBC RBC Hgb Hct MCV MCH MCHC RDW Plt Count Lymph % (Auto) [place] % (Auto) Lymph # [place] # Baso # Seg Neutrophils % Seg Neuts % (Manual) Lymphocytes % (Manual) Monocytes % (Manual) Eosinophils % (Manual) Basophils % (Manual) Nucleated RBC % Seg Neutrophils # Seg Neutrophils # Man Lymphocytes # (Manual) Monocytes # (Manual) Eosinophils # (Manual) PT INR Fibrinogen dRVVT Confirm Interp Factor V Activity POC ABG pH POC ABG pCO2 POC ABG pO2 Sodium Potassium Chloride Carbon Dioxide BUN Creatinine Glucose POC Glucose 114 H 141 H Lactic Acid Calcium Phosphorus Magnesium 2.70 H Direct Bilirubin AST ALT Alkaline Phosphatase Lactate Dehydrogenase Troponin T C-Reactive Protein Total Protein Albumin Prealbumin Triglycerides Cholesterol LDL Cholesterol Direct HDL Cholesterol Urine pH Urine WBC (Auto) Urine Creatinine Urine Total Protein Fluid Total Protein Vancomycin Trough Rheumatoid Factor Complement C4 Miscellaneous Test Crossmatch 09/21/16 09/21/16 09/21/16 07:45 07:45 10:01 WBC 13.8 H RBC 2.94 L Hgb 7.5 L Hct 23.5 L MCV MCH 26 L MCHC RDW 21.2 H Plt Count Lymph % (Auto) 6.9 L [place] % (Auto) 9.4 H Lymph # 0.9 L [place] # 1.3 H Baso # Seg Neutrophils % 83.2 H Seg Neuts % (Manual) Lymphocytes % (Manual) Monocytes % (Manual) Eosinophils % (Manual) Basophils % (Manual) Nucleated RBC % Seg Neutrophils # 11.5 H Seg Neutrophils # Man Lymphocytes # (Manual) Monocytes # (Manual) Eosinophils # (Manual) PT INR Fibrinogen dRVVT Confirm Interp Factor V Activity POC ABG pH 7.308 L POC ABG pCO2 31.9 L POC ABG pO2 148 H Sodium 147 H Potassium Chloride 114.2 H Carbon Dioxide 15 L BUN 120 H Creatinine 3.9 H Glucose 156 H POC Glucose Lactic Acid Calcium 8.2 L Phosphorus Magnesium Direct Bilirubin AST ALT Alkaline Phosphatase Lactate Dehydrogenase Troponin T C-Reactive Protein Total Protein Albumin Prealbumin Triglycerides Cholesterol LDL Cholesterol Direct HDL Cholesterol Urine pH Urine WBC (Auto) Urine Creatinine Urine Total Protein Fluid Total Protein Vancomycin Trough Rheumatoid Factor Complement C4 Miscellaneous Test Crossmatch 09/21/16 09/21/16 09/21/16 12:00 12:03 13:00 WBC RBC Hgb Hct MCV MCH MCHC RDW Plt Count Lymph % (Auto) [place] % (Auto) Lymph # [place] # Baso # Seg Neutrophils % Seg Neuts % (Manual) Lymphocytes % (Manual) Monocytes % (Manual) Eosinophils % (Manual) Basophils % (Manual) Nucleated RBC % Seg Neutrophils # Seg Neutrophils # Man Lymphocytes # (Manual) Monocytes # (Manual) Eosinophils # (Manual) PT INR Fibrinogen dRVVT Confirm Interp Factor V Activity POC ABG pH POC ABG pCO2 POC ABG pO2 Sodium Potassium Chloride Carbon Dioxide BUN Creatinine Glucose POC Glucose 163 H Lactic Acid Calcium Phosphorus Magnesium Direct Bilirubin AST ALT Alkaline Phosphatase Lactate Dehydrogenase Troponin T C-Reactive Protein Total Protein Albumin Prealbumin Triglycerides Cholesterol LDL Cholesterol Direct HDL Cholesterol Urine pH Urine WBC (Auto) Urine Creatinine 54.8 H Urine Total Protein Fluid Total Protein Vancomycin Trough 2.3 L Rheumatoid Factor Complement C4 Miscellaneous Test Crossmatch 09/21/16 09/21/16 09/22/16 16:51 23:17 06:27 WBC RBC Hgb Hct MCV MCH MCHC RDW Plt Count Lymph % (Auto) [place] % (Auto) Lymph # [place] # Baso # Seg Neutrophils % Seg Neuts % (Manual) Lymphocytes % (Manual) Monocytes % (Manual) Eosinophils % (Manual) Basophils % (Manual) Nucleated RBC % Seg Neutrophils # Seg Neutrophils # Man Lymphocytes # (Manual) Monocytes # (Manual) Eosinophils # (Manual) PT INR Fibrinogen dRVVT Confirm Interp Factor V Activity POC ABG pH POC ABG pCO2 POC ABG pO2 Sodium Potassium Chloride Carbon Dioxide BUN Creatinine Glucose POC Glucose 206 H 114 H 115 H Lactic Acid Calcium Phosphorus Magnesium Direct Bilirubin AST ALT Alkaline Phosphatase Lactate Dehydrogenase Troponin T C-Reactive Protein Total Protein Albumin Prealbumin Triglycerides Cholesterol LDL Cholesterol Direct HDL Cholesterol Urine pH Urine WBC (Auto) Urine Creatinine Urine Total Protein Fluid Total Protein Vancomycin Trough Rheumatoid Factor Complement C4 Miscellaneous Test Crossmatch 09/22/16 09/22/16 09/22/16 07:50 07:50 12:00 WBC 17.8 H RBC 3.04 L Hgb 8.0 L Hct 24.7 L MCV MCH 26 L MCHC RDW 21.6 H Plt Count Lymph % (Auto) [place] % (Auto) Lymph # [place] # Baso # Seg Neutrophils % Seg Neuts % (Manual) Lymphocytes % (Manual) Monocytes % (Manual) Eosinophils % (Manual) Basophils % (Manual) Nucleated RBC % Seg Neutrophils # Seg Neutrophils # Man Lymphocytes # (Manual) Monocytes # (Manual) Eosinophils # (Manual) PT INR Fibrinogen dRVVT Confirm Interp Factor V Activity POC ABG pH POC ABG pCO2 POC ABG pO2 Sodium 150 H Potassium Chloride 118.2 H Carbon Dioxide 14 L BUN 111 H Creatinine 3.7 H Glucose 157 H POC Glucose 183 H Lactic Acid Calcium Phosphorus Magnesium Direct Bilirubin AST ALT Alkaline Phosphatase Lactate Dehydrogenase Troponin T C-Reactive Protein Total Protein Albumin Prealbumin Triglycerides Cholesterol LDL Cholesterol Direct HDL Cholesterol Urine pH Urine WBC (Auto) Urine Creatinine Urine Total Protein Fluid Total Protein Vancomycin Trough Rheumatoid Factor Complement C4 Miscellaneous Test Crossmatch 09/22/16 09/22/16 09/23/16 17:29 23:10 05:00 WBC 19.2 H RBC 3.13 L Hgb 8.0 L Hct 25.2 L MCV MCH 26 L MCHC RDW 22.1 H Plt Count Lymph % (Auto) [place] % (Auto) Lymph # [place] # Baso # Seg Neutrophils % Seg Neuts % (Manual) 92.0 H Lymphocytes % (Manual) 3.0 L Monocytes % (Manual) Eosinophils % (Manual) Basophils % (Manual) Nucleated RBC % Seg Neutrophils # Seg Neutrophils # Man 17.7 H Lymphocytes # (Manual) 0.6 L Monocytes # (Manual) Eosinophils # (Manual) PT INR Fibrinogen dRVVT Confirm Interp Factor V Activity POC ABG pH POC ABG pCO2 POC ABG pO2 Sodium Potassium Chloride Carbon Dioxide BUN Creatinine Glucose POC Glucose 197 H 169 H Lactic Acid Calcium Phosphorus Magnesium Direct Bilirubin AST ALT Alkaline Phosphatase Lactate Dehydrogenase Troponin T C-Reactive Protein Total Protein Albumin Prealbumin Triglycerides Cholesterol LDL Cholesterol Direct HDL Cholesterol Urine pH Urine WBC (Auto) Urine Creatinine Urine Total Protein Fluid Total Protein Vancomycin Trough Rheumatoid Factor Complement C4 Miscellaneous Test Crossmatch 09/23/16 09/23/16 09/23/16 05:00 05:00 05:10 WBC RBC Hgb Hct MCV MCH MCHC RDW Plt Count Lymph % (Auto) [place] % (Auto) Lymph # [place] # Baso # Seg Neutrophils % Seg Neuts % (Manual) Lymphocytes % (Manual) Monocytes % (Manual) Eosinophils % (Manual) Basophils % (Manual) Nucleated RBC % Seg Neutrophils # Seg Neutrophils # Man Lymphocytes # (Manual) Monocytes # (Manual) Eosinophils # (Manual) PT INR Fibrinogen dRVVT Confirm Interp Factor V Activity POC ABG pH POC ABG pCO2 POC ABG pO2 Sodium 147 H Potassium 3.2 L Chloride 115.7 H Carbon Dioxide 13 L BUN 111 H Creatinine 3.8 H Glucose 194 H POC Glucose 188 H Lactic Acid Calcium 7.3 L D Phosphorus Magnesium Direct Bilirubin AST ALT Alkaline Phosphatase Lactate Dehydrogenase Troponin T C-Reactive Protein 3.20 H Total Protein Albumin Prealbumin Triglycerides Cholesterol LDL Cholesterol Direct HDL Cholesterol Urine pH Urine WBC (Auto) Urine Creatinine Urine Total Protein Fluid Total Protein Vancomycin Trough Rheumatoid Factor Complement C4 Miscellaneous Test Crossmatch 09/23/16 09/23/16 09/23/16 11:37 12:29 18:01 WBC RBC Hgb Hct MCV MCH MCHC RDW Plt Count Lymph % (Auto) [place] % (Auto) Lymph # [place] # Baso # Seg Neutrophils % Seg Neuts % (Manual) Lymphocytes % (Manual) Monocytes % (Manual) Eosinophils % (Manual) Basophils % (Manual) Nucleated RBC % Seg Neutrophils # Seg Neutrophils # Man Lymphocytes # (Manual) Monocytes # (Manual) Eosinophils # (Manual) PT INR Fibrinogen dRVVT Confirm Interp Factor V Activity POC ABG pH POC ABG pCO2 18.9 L POC ABG pO2 143 H Sodium Potassium Chloride Carbon Dioxide BUN Creatinine Glucose POC Glucose 153 H 108 H Lactic Acid Calcium Phosphorus Magnesium Direct Bilirubin AST ALT Alkaline Phosphatase Lactate Dehydrogenase Troponin T C-Reactive Protein Total Protein Albumin Prealbumin Triglycerides Cholesterol LDL Cholesterol Direct HDL Cholesterol Urine pH Urine WBC (Auto) Urine Creatinine Urine Total Protein Fluid Total Protein Vancomycin Trough Rheumatoid Factor Complement C4 Miscellaneous Test Crossmatch 09/23/16 09/23/16 09/24/16 21:19 23:43 05:16 WBC RBC Hgb Hct MCV MCH MCHC RDW Plt Count Lymph % (Auto) [place] % (Auto) Lymph # [place] # Baso # Seg Neutrophils % Seg Neuts % (Manual) Lymphocytes % (Manual) Monocytes % (Manual) Eosinophils % (Manual) Basophils % (Manual) Nucleated RBC % Seg Neutrophils # Seg Neutrophils # Man Lymphocytes # (Manual) Monocytes # (Manual) Eosinophils # (Manual) PT INR Fibrinogen dRVVT Confirm Interp Factor V Activity POC ABG pH POC ABG pCO2 17.3 L POC ABG pO2 112 H Sodium Potassium Chloride Carbon Dioxide BUN Creatinine Glucose POC Glucose 143 H 164 H Lactic Acid Calcium Phosphorus Magnesium Direct Bilirubin AST ALT Alkaline Phosphatase Lactate Dehydrogenase Troponin T C-Reactive Protein Total Protein Albumin Prealbumin Triglycerides Cholesterol LDL Cholesterol Direct HDL Cholesterol Urine pH Urine WBC (Auto) Urine Creatinine Urine Total Protein Fluid Total Protein Vancomycin Trough Rheumatoid Factor Complement C4 Miscellaneous Test Crossmatch 09/24/16 09/24/16 09/24/16 05:21 11:58 17:06 WBC RBC Hgb Hct MCV MCH MCHC RDW Plt Count Lymph % (Auto) [place] % (Auto) Lymph # [place] # Baso # Seg Neutrophils % Seg Neuts % (Manual) Lymphocytes % (Manual) Monocytes % (Manual) Eosinophils % (Manual) Basophils % (Manual) Nucleated RBC % Seg Neutrophils # Seg Neutrophils # Man Lymphocytes # (Manual) Monocytes # (Manual) Eosinophils # (Manual) PT INR Fibrinogen dRVVT Confirm Interp Factor V Activity POC ABG pH POC ABG pCO2 POC ABG pO2 Sodium Potassium Chloride Carbon Dioxide 10 L BUN 103 H Creatinine 4.3 H Glucose 163 H POC Glucose 173 H 167 H Lactic Acid Calcium 6.5 L Phosphorus Magnesium Direct Bilirubin AST ALT Alkaline Phosphatase Lactate Dehydrogenase Troponin T C-Reactive Protein Total Protein Albumin Prealbumin Triglycerides Cholesterol LDL Cholesterol Direct HDL Cholesterol Urine pH Urine WBC (Auto) Urine Creatinine Urine Total Protein Fluid Total Protein Vancomycin Trough Rheumatoid Factor Complement C4 Miscellaneous Test Crossmatch 09/24/16 09/24/16 09/24/16 20:15 21:02 23:48 WBC RBC Hgb Hct MCV MCH MCHC RDW Plt Count Lymph % (Auto) [place] % (Auto) Lymph # [place] # Baso # Seg Neutrophils % Seg Neuts % (Manual) Lymphocytes % (Manual) Monocytes % (Manual) Eosinophils % (Manual) Basophils % (Manual) Nucleated RBC % Seg Neutrophils # Seg Neutrophils # Man Lymphocytes # (Manual) Monocytes # (Manual) Eosinophils # (Manual) PT INR Fibrinogen dRVVT Confirm Interp Factor V Activity POC ABG pH 7.288 L POC ABG pCO2 30.2 L 21.5 L POC ABG pO2 32 L 39 L Sodium Potassium Chloride Carbon Dioxide BUN Creatinine Glucose POC Glucose 109 H Lactic Acid Calcium Phosphorus Magnesium Direct Bilirubin AST ALT Alkaline Phosphatase Lactate Dehydrogenase Troponin T C-Reactive Protein Total Protein Albumin Prealbumin Triglycerides Cholesterol LDL Cholesterol Direct HDL Cholesterol Urine pH Urine WBC (Auto) Urine Creatinine Urine Total Protein Fluid Total Protein Vancomycin Trough Rheumatoid Factor Complement C4 Miscellaneous Test Crossmatch 09/25/16 09/25/16 09/25/16 04:20 04:20 04:20 WBC RBC 2.58 L Hgb 7.0 L Hct 21.0 L MCV MCH 27 L MCHC RDW 23.8 H Plt Count Lymph % (Auto) [place] % (Auto) Lymph # [place] # Baso # Seg Neutrophils % Seg Neuts % (Manual) Lymphocytes % (Manual) 12.0 L Monocytes % (Manual) Eosinophils % (Manual) 7.0 H Basophils % (Manual) 2.0 H Nucleated RBC % Seg Neutrophils # Seg Neutrophils # Man Lymphocytes # (Manual) 0.9 L Monocytes # (Manual) Eosinophils # (Manual) 0.5 H PT INR Fibrinogen dRVVT Confirm Interp Factor V Activity POC ABG pH POC ABG pCO2 POC ABG pO2 Sodium Potassium Chloride Carbon Dioxide 15 L BUN 72 H Creatinine 3.8 H Glucose POC Glucose Lactic Acid Calcium 6.0 L Phosphorus 4.60 H Magnesium 1.60 L Direct Bilirubin AST ALT Alkaline Phosphatase Lactate Dehydrogenase Troponin T C-Reactive Protein Total Protein Albumin Prealbumin Triglycerides Cholesterol LDL Cholesterol Direct HDL Cholesterol Urine pH Urine WBC (Auto) Urine Creatinine Urine Total Protein Fluid Total Protein Vancomycin Trough Rheumatoid Factor Complement C4 Miscellaneous Test Crossmatch 09/25/16 09/25/16 09/25/16 04:57 08:02 10:30 WBC RBC Hgb Hct MCV MCH MCHC RDW Plt Count Lymph % (Auto) [place] % (Auto) Lymph # [place] # Baso # Seg Neutrophils % Seg Neuts % (Manual) Lymphocytes % (Manual) Monocytes % (Manual) Eosinophils % (Manual) Basophils % (Manual) Nucleated RBC % Seg Neutrophils # Seg Neutrophils # Man Lymphocytes # (Manual) Monocytes # (Manual) Eosinophils # (Manual) PT INR Fibrinogen dRVVT Confirm Interp Factor V Activity POC ABG pH POC ABG pCO2 24.7 L POC ABG pO2 152 H Sodium Potassium Chloride Carbon Dioxide BUN Creatinine Glucose POC Glucose 113 H Lactic Acid Calcium Phosphorus Magnesium Direct Bilirubin AST ALT Alkaline Phosphatase Lactate Dehydrogenase Troponin T C-Reactive Protein Total Protein Albumin Prealbumin Triglycerides Cholesterol LDL Cholesterol Direct HDL Cholesterol Urine pH Urine WBC (Auto) Urine Creatinine Urine Total Protein Fluid Total Protein Vancomycin Trough Rheumatoid Factor Complement C4 Miscellaneous Test Crossmatch See Detail 09/25/16 09/25/16 09/25/16 12:05 17:44 23:47 WBC RBC Hgb Hct MCV MCH MCHC RDW Plt Count Lymph % (Auto) [place] % (Auto) Lymph # [place] # Baso # Seg Neutrophils % Seg Neuts % (Manual) Lymphocytes % (Manual) Monocytes % (Manual) Eosinophils % (Manual) Basophils % (Manual) Nucleated RBC % Seg Neutrophils # Seg Neutrophils # Man Lymphocytes # (Manual) Monocytes # (Manual) Eosinophils # (Manual) PT INR Fibrinogen dRVVT Confirm Interp Factor V Activity POC ABG pH POC ABG pCO2 POC ABG pO2 Sodium Potassium Chloride Carbon Dioxide BUN Creatinine Glucose POC Glucose 117 H 119 H 150 H Lactic Acid Calcium Phosphorus Magnesium Direct Bilirubin AST ALT Alkaline Phosphatase Lactate Dehydrogenase Troponin T C-Reactive Protein Total Protein Albumin Prealbumin Triglycerides Cholesterol LDL Cholesterol Direct HDL Cholesterol Urine pH Urine WBC (Auto) Urine Creatinine Urine Total Protein Fluid Total Protein Vancomycin Trough Rheumatoid Factor Complement C4 Miscellaneous Test Crossmatch 09/26/16 09/26/16 09/26/16 04:25 04:25 04:25 WBC RBC 2.65 L Hgb 7.4 L Hct 21.6 L MCV MCH MCHC RDW 22.5 H Plt Count Lymph % (Auto) [place] % (Auto) Lymph # [place] # Baso # Seg Neutrophils % Seg Neuts % (Manual) Lymphocytes % (Manual) 6.0 L Monocytes % (Manual) Eosinophils % (Manual) 11.0 H Basophils % (Manual) Nucleated RBC % Seg Neutrophils # Seg Neutrophils # Man Lymphocytes # (Manual) 0.4 L Monocytes # (Manual) Eosinophils # (Manual) 0.6 H PT INR Fibrinogen dRVVT Confirm Interp Factor V Activity POC ABG pH POC ABG pCO2 POC ABG pO2 Sodium Potassium Chloride 97.0 L Carbon Dioxide 19 L BUN 43 H Creatinine 2.6 H Glucose 130 H POC Glucose Lactic Acid 4.40 H* Calcium 6.7 L Phosphorus Magnesium Direct Bilirubin AST ALT Alkaline Phosphatase Lactate Dehydrogenase Troponin T C-Reactive Protein Total Protein Albumin Prealbumin Triglycerides Cholesterol LDL Cholesterol Direct HDL Cholesterol Urine pH Urine WBC (Auto) Urine Creatinine Urine Total Protein Fluid Total Protein Vancomycin Trough Rheumatoid Factor Complement C4 Miscellaneous Test Crossmatch 09/26/16 09/26/16 09/26/16 05:20 11:44 12:12 WBC RBC Hgb Hct MCV MCH MCHC RDW Plt Count Lymph % (Auto) [place] % (Auto) Lymph # [place] # Baso # Seg Neutrophils % Seg Neuts % (Manual) Lymphocytes % (Manual) Monocytes % (Manual) Eosinophils % (Manual) Basophils % (Manual) Nucleated RBC % Seg Neutrophils # Seg Neutrophils # Man Lymphocytes # (Manual) Monocytes # (Manual) Eosinophils # (Manual) PT INR Fibrinogen dRVVT Confirm Interp Factor V Activity POC ABG pH POC ABG pCO2 27.0 L POC ABG pO2 69 L Sodium Potassium Chloride Carbon Dioxide BUN Creatinine Glucose POC Glucose 121 H 128 H Lactic Acid Calcium Phosphorus Magnesium Direct Bilirubin AST ALT Alkaline Phosphatase Lactate Dehydrogenase Troponin T C-Reactive Protein Total Protein Albumin Prealbumin Triglycerides Cholesterol LDL Cholesterol Direct HDL Cholesterol Urine pH Urine WBC (Auto) Urine Creatinine Urine Total Protein Fluid Total Protein Vancomycin Trough Rheumatoid Factor Complement C4 Miscellaneous Test Crossmatch 09/26/16 09/26/16 09/27/16 18:31 23:40 08:20 WBC RBC Hgb Hct MCV MCH MCHC RDW Plt Count Lymph % (Auto) [place] % (Auto) Lymph # [place] # Baso # Seg Neutrophils % Seg Neuts % (Manual) Lymphocytes % (Manual) Monocytes % (Manual) Eosinophils % (Manual) Basophils % (Manual) Nucleated RBC % Seg Neutrophils # Seg Neutrophils # Man Lymphocytes # (Manual) Monocytes # (Manual) Eosinophils # (Manual) PT INR Fibrinogen dRVVT Confirm Interp Factor V Activity POC ABG pH POC ABG pCO2 POC ABG pO2 Sodium Potassium Chloride Carbon Dioxide BUN Creatinine Glucose POC Glucose 120 H 133 H Lactic Acid 4.10 H* Calcium Phosphorus Magnesium Direct Bilirubin AST ALT Alkaline Phosphatase Lactate Dehydrogenase Troponin T C-Reactive Protein Total Protein Albumin Prealbumin Triglycerides Cholesterol LDL Cholesterol Direct HDL Cholesterol Urine pH Urine WBC (Auto) Urine Creatinine Urine Total Protein Fluid Total Protein Vancomycin Trough Rheumatoid Factor Complement C4 Miscellaneous Test Crossmatch 09/27/16 09/27/16 09/27/16 11:23 15:00 18:15 WBC RBC Hgb Hct MCV MCH MCHC RDW Plt Count Lymph % (Auto) [place] % (Auto) Lymph # [place] # Baso # Seg Neutrophils % Seg Neuts % (Manual) Lymphocytes % (Manual) Monocytes % (Manual) Eosinophils % (Manual) Basophils % (Manual) Nucleated RBC % Seg Neutrophils # Seg Neutrophils # Man Lymphocytes # (Manual) Monocytes # (Manual) Eosinophils # (Manual) PT INR Fibrinogen dRVVT Confirm Interp Factor V Activity POC ABG pH 7.459 H POC ABG pCO2 27.1 L POC ABG pO2 140 H Sodium Potassium Chloride Carbon Dioxide BUN Creatinine Glucose POC Glucose 114 H 127 H Lactic Acid Calcium Phosphorus Magnesium Direct Bilirubin AST ALT Alkaline Phosphatase Lactate Dehydrogenase Troponin T C-Reactive Protein Total Protein Albumin Prealbumin Triglycerides Cholesterol LDL Cholesterol Direct HDL Cholesterol Urine pH Urine WBC (Auto) Urine Creatinine Urine Total Protein Fluid Total Protein Vancomycin Trough Rheumatoid Factor Complement C4 Miscellaneous Test Crossmatch 09/27/16 09/27/16 09/28/16 Unknown Unknown 03:45 WBC RBC 2.49 L Hgb 6.8 L Hct 20.7 L MCV MCH 27 L MCHC RDW 22.1 H Plt Count Lymph % (Auto) [place] % (Auto) Lymph # [place] # Baso # Seg Neutrophils % Seg Neuts % (Manual) 32.0 L Lymphocytes % (Manual) 12.0 L Monocytes % (Manual) 11.0 H Eosinophils % (Manual) 10.0 H Basophils % (Manual) Nucleated RBC % Seg Neutrophils # Seg Neutrophils # Man Lymphocytes # (Manual) 1.0 L Monocytes # (Manual) 0.9 H Eosinophils # (Manual) 0.8 H PT INR Fibrinogen dRVVT Confirm Interp Factor V Activity POC ABG pH POC ABG pCO2 POC ABG pO2 Sodium 135 L 135 L Potassium 3.5 L Chloride 93.6 L 94.4 L Carbon Dioxide 17 L 21 L BUN 45 H 28 H Creatinine 3.3 H 2.5 H Glucose 106 H POC Glucose Lactic Acid Calcium 7.3 L 7.1 L Phosphorus Magnesium Direct Bilirubin AST ALT Alkaline Phosphatase Lactate Dehydrogenase Troponin T C-Reactive Protein Total Protein Albumin Prealbumin Triglycerides Cholesterol LDL Cholesterol Direct HDL Cholesterol Urine pH Urine WBC (Auto) Urine Creatinine Urine Total Protein Fluid Total Protein Vancomycin Trough Rheumatoid Factor Complement C4 Miscellaneous Test Crossmatch 09/28/16 09/28/16 09/28/16 03:45 07:25 11:58 WBC 13.3 H RBC 3.01 L Hgb 8.4 L Hct 25.0 L MCV MCH MCHC RDW 20.5 H Plt Count 128 L Lymph % (Auto) [place] % (Auto) Lymph # [place] # Baso # Seg Neutrophils % Seg Neuts % (Manual) Lymphocytes % (Manual) 7.0 L Monocytes % (Manual) Eosinophils % (Manual) 6.0 H Basophils % (Manual) Nucleated RBC % Seg Neutrophils # Seg Neutrophils # Man Lymphocytes # (Manual) 0.9 L Monocytes # (Manual) Eosinophils # (Manual) 0.8 H PT INR Fibrinogen dRVVT Confirm Interp Factor V Activity POC ABG pH POC ABG pCO2 POC ABG pO2 Sodium Potassium Chloride Carbon Dioxide BUN Creatinine Glucose POC Glucose 121 H Lactic Acid 4.50 H* Calcium Phosphorus Magnesium Direct Bilirubin AST ALT Alkaline Phosphatase Lactate Dehydrogenase Troponin T C-Reactive Protein Total Protein Albumin Prealbumin Triglycerides Cholesterol LDL Cholesterol Direct HDL Cholesterol Urine pH Urine WBC (Auto) Urine Creatinine Urine Total Protein Fluid Total Protein Vancomycin Trough Rheumatoid Factor Complement C4 Miscellaneous Test Crossmatch 09/29/16 09/29/16 09/29/16 06:45 06:45 06:45 WBC 14.9 H RBC 2.74 L Hgb 7.6 L Hct 23.2 L MCV MCH MCHC RDW 20.5 H Plt Count 81 L Lymph % (Auto) [place] % (Auto) Lymph # [place] # Baso # Seg Neutrophils % Seg Neuts % (Manual) 81.0 H Lymphocytes % (Manual) 4.0 L Monocytes % (Manual) Eosinophils % (Manual) Basophils % (Manual) Nucleated RBC % Seg Neutrophils # Seg Neutrophils # Man 12.1 H Lymphocytes # (Manual) 0.6 L Monocytes # (Manual) Eosinophils # (Manual) PT INR Fibrinogen dRVVT Confirm Interp Factor V Activity POC ABG pH POC ABG pCO2 POC ABG pO2 Sodium 133 L Potassium 3.4 L Chloride 92.5 L Carbon Dioxide 21 L BUN 33 H Creatinine 3.0 H Glucose POC Glucose Lactic Acid Calcium 6.6 L Phosphorus Magnesium 1.40 L Direct Bilirubin 0.9 H AST ALT Alkaline Phosphatase Lactate Dehydrogenase Troponin T C-Reactive Protein Total Protein 4.3 L Albumin 1.3 L Prealbumin Triglycerides Cholesterol LDL Cholesterol Direct HDL Cholesterol Urine pH Urine WBC (Auto) Urine Creatinine Urine Total Protein Fluid Total Protein Vancomycin Trough Rheumatoid Factor Complement C4 Miscellaneous Test Crossmatch 09/29/16 09/29/16 09/30/16 17:52 20:12 00:07 WBC RBC Hgb Hct MCV MCH MCHC RDW Plt Count Lymph % (Auto) [place] % (Auto) Lymph # [place] # Baso # Seg Neutrophils % Seg Neuts % (Manual) Lymphocytes % (Manual) Monocytes % (Manual) Eosinophils % (Manual) Basophils % (Manual) Nucleated RBC % Seg Neutrophils # Seg Neutrophils # Man Lymphocytes # (Manual) Monocytes # (Manual) Eosinophils # (Manual) PT INR Fibrinogen dRVVT Confirm Interp Factor V Activity POC ABG pH POC ABG pCO2 POC ABG pO2 Sodium Potassium Chloride Carbon Dioxide BUN Creatinine Glucose POC Glucose 50 L 51 L Lactic Acid Calcium Phosphorus Magnesium Direct Bilirubin AST ALT Alkaline Phosphatase Lactate Dehydrogenase Troponin T 0.204 H* C-Reactive Protein Total Protein Albumin Prealbumin Triglycerides Cholesterol 31 L LDL Cholesterol Direct 4 L HDL Cholesterol 3 L Urine pH Urine WBC (Auto) Urine Creatinine Urine Total Protein Fluid Total Protein Vancomycin Trough Rheumatoid Factor Complement C4 Miscellaneous Test Crossmatch 09/30/16 09/30/16 09/30/16 01:30 05:15 06:10 WBC RBC Hgb Hct MCV MCH MCHC RDW Plt Count Lymph % (Auto) [place] % (Auto) Lymph # [place] # Baso # Seg Neutrophils % Seg Neuts % (Manual) Lymphocytes % (Manual) Monocytes % (Manual) Eosinophils % (Manual) Basophils % (Manual) Nucleated RBC % Seg Neutrophils # Seg Neutrophils # Man Lymphocytes # (Manual) Monocytes # (Manual) Eosinophils # (Manual) PT INR Fibrinogen dRVVT Confirm Interp Factor V Activity POC ABG pH POC ABG pCO2 POC ABG pO2 Sodium 133 L Potassium 3.2 L Chloride 93.2 L Carbon Dioxide 19 L BUN 36 H Creatinine 3.2 H Glucose 104 H POC Glucose 167 H 146 H Lactic Acid Calcium 6.4 L Phosphorus Magnesium 1.60 L Direct Bilirubin AST ALT Alkaline Phosphatase Lactate Dehydrogenase Troponin T C-Reactive Protein Total Protein Albumin Prealbumin Triglycerides Cholesterol LDL Cholesterol Direct HDL Cholesterol Urine pH Urine WBC (Auto) Urine Creatinine Urine Total Protein Fluid Total Protein Vancomycin Trough Rheumatoid Factor Complement C4 Miscellaneous Test Crossmatch 09/30/16 09/30/16 09/30/16 11:26 13:39 18:38 WBC RBC Hgb Hct MCV MCH MCHC RDW Plt Count Lymph % (Auto) [place] % (Auto) Lymph # [place] # Baso # Seg Neutrophils % Seg Neuts % (Manual) Lymphocytes % (Manual) Monocytes % (Manual) Eosinophils % (Manual) Basophils % (Manual) Nucleated RBC % Seg Neutrophils # Seg Neutrophils # Man Lymphocytes # (Manual) Monocytes # (Manual) Eosinophils # (Manual) PT INR Fibrinogen dRVVT Confirm Interp Factor V Activity POC ABG pH 7.479 H POC ABG pCO2 29.8 L POC ABG pO2 117 H Sodium Potassium Chloride Carbon Dioxide BUN Creatinine Glucose POC Glucose 140 H 122 H Lactic Acid Calcium Phosphorus Magnesium Direct Bilirubin AST ALT Alkaline Phosphatase Lactate Dehydrogenase Troponin T C-Reactive Protein Total Protein Albumin Prealbumin Triglycerides Cholesterol LDL Cholesterol Direct HDL Cholesterol Urine pH Urine WBC (Auto) Urine Creatinine Urine Total Protein Fluid Total Protein Vancomycin Trough Rheumatoid Factor Complement C4 Miscellaneous Test Crossmatch 10/01/16 10/01/16 10/01/16 06:00 06:00 12:37 WBC 12.6 H RBC 2.75 L Hgb 7.3 L Hct 23.3 L MCV MCH 27 L MCHC RDW 20.6 H Plt Count 72 L Lymph % (Auto) [place] % (Auto) Lymph # [place] # Baso # Seg Neutrophils % Seg Neuts % (Manual) 31.0 L Lymphocytes % (Manual) 8.0 L Monocytes % (Manual) Eosinophils % (Manual) Basophils % (Manual) Nucleated RBC % 3.0 H Seg Neutrophils # Seg Neutrophils # Man Lymphocytes # (Manual) 1.0 L Monocytes # (Manual) Eosinophils # (Manual) PT INR Fibrinogen dRVVT Confirm Interp Factor V Activity POC ABG pH POC ABG pCO2 POC ABG pO2 Sodium 127 L Potassium Chloride 86.8 L Carbon Dioxide 20 L BUN 42 H Creatinine 3.5 H Glucose POC Glucose 65 L Lactic Acid Calcium 7.0 L Phosphorus Magnesium Direct Bilirubin AST ALT Alkaline Phosphatase Lactate Dehydrogenase Troponin T C-Reactive Protein Total Protein Albumin Prealbumin Triglycerides Cholesterol LDL Cholesterol Direct HDL Cholesterol Urine pH Urine WBC (Auto) Urine Creatinine Urine Total Protein Fluid Total Protein Vancomycin Trough Rheumatoid Factor Complement C4 Miscellaneous Test Crossmatch 10/01/16 10/01/16 10/02/16 17:39 23:32 00:59 WBC RBC Hgb Hct MCV MCH MCHC RDW Plt Count Lymph % (Auto) [place] % (Auto) Lymph # [place] # Baso # Seg Neutrophils % Seg Neuts % (Manual) Lymphocytes % (Manual) Monocytes % (Manual) Eosinophils % (Manual) Basophils % (Manual) Nucleated RBC % Seg Neutrophils # Seg Neutrophils # Man Lymphocytes # (Manual) Monocytes # (Manual) Eosinophils # (Manual) PT INR Fibrinogen dRVVT Confirm Interp Factor V Activity POC ABG pH POC ABG pCO2 POC ABG pO2 Sodium Potassium Chloride Carbon Dioxide BUN Creatinine Glucose POC Glucose 107 H 52 L 145 H Lactic Acid Calcium Phosphorus Magnesium Direct Bilirubin AST ALT Alkaline Phosphatase Lactate Dehydrogenase Troponin T C-Reactive Protein Total Protein Albumin Prealbumin Triglycerides Cholesterol LDL Cholesterol Direct HDL Cholesterol Urine pH Urine WBC (Auto) Urine Creatinine Urine Total Protein Fluid Total Protein Vancomycin Trough Rheumatoid Factor Complement C4 Miscellaneous Test Crossmatch 10/02/16 10/02/16 10/02/16 10:30 10:50 10:50 WBC 14.7 H RBC 2.76 L Hgb 7.4 L Hct 23.6 L MCV MCH 27 L MCHC RDW 20.2 H Plt Count 79 L Lymph % (Auto) [place] % (Auto) Lymph # [place] # Baso # Seg Neutrophils % Seg Neuts % (Manual) 86.0 H Lymphocytes % (Manual) 6.0 L Monocytes % (Manual) Eosinophils % (Manual) Basophils % (Manual) Nucleated RBC % Seg Neutrophils # Seg Neutrophils # Man 12.6 H Lymphocytes # (Manual) 0.9 L Monocytes # (Manual) Eosinophils # (Manual) PT INR Fibrinogen dRVVT Confirm Interp Factor V Activity POC ABG pH 7.486 H POC ABG pCO2 30.1 L POC ABG pO2 108 H Sodium 131 L Potassium 3.4 L Chloride 89.9 L Carbon Dioxide BUN 26 H Creatinine 2.6 H Glucose POC Glucose Lactic Acid Calcium 7.0 L Phosphorus Magnesium Direct Bilirubin AST ALT Alkaline Phosphatase Lactate Dehydrogenase Troponin T C-Reactive Protein Total Protein Albumin Prealbumin Triglycerides Cholesterol LDL Cholesterol Direct HDL Cholesterol Urine pH Urine WBC (Auto) Urine Creatinine Urine Total Protein Fluid Total Protein Vancomycin Trough Rheumatoid Factor Complement C4 Miscellaneous Test Crossmatch 10/02/16 10/03/16 10/03/16 23:45 00:45 05:10 WBC 12.9 H RBC 2.77 L Hgb 7.6 L Hct 23.7 L MCV MCH 27 L MCHC RDW 19.7 H Plt Count 89 L Lymph % (Auto) [place] % (Auto) Lymph # [place] # Baso # Seg Neutrophils % Seg Neuts % (Manual) Lymphocytes % (Manual) 8.0 L Monocytes % (Manual) Eosinophils % (Manual) Basophils % (Manual) Nucleated RBC % Seg Neutrophils # 11.9 H Seg Neutrophils # Man Lymphocytes # (Manual) 1.0 L Monocytes # (Manual) Eosinophils # (Manual) PT INR Fibrinogen dRVVT Confirm Interp Factor V Activity POC ABG pH POC ABG pCO2 POC ABG pO2 Sodium Potassium Chloride Carbon Dioxide BUN Creatinine Glucose POC Glucose 55 L 199 H Lactic Acid Calcium Phosphorus Magnesium Direct Bilirubin AST ALT Alkaline Phosphatase Lactate Dehydrogenase Troponin T C-Reactive Protein Total Protein Albumin Prealbumin Triglycerides Cholesterol LDL Cholesterol Direct HDL Cholesterol Urine pH Urine WBC (Auto) Urine Creatinine Urine Total Protein Fluid Total Protein Vancomycin Trough Rheumatoid Factor Complement C4 Miscellaneous Test Crossmatch 10/03/16 10/03/16 10/03/16 05:10 12:14 13:18 WBC RBC Hgb Hct MCV MCH MCHC RDW Plt Count Lymph % (Auto) [place] % (Auto) Lymph # [place] # Baso # Seg Neutrophils % Seg Neuts % (Manual) Lymphocytes % (Manual) Monocytes % (Manual) Eosinophils % (Manual) Basophils % (Manual) Nucleated RBC % Seg Neutrophils # Seg Neutrophils # Man Lymphocytes # (Manual) Monocytes # (Manual) Eosinophils # (Manual) PT INR Fibrinogen dRVVT Confirm Interp Factor V Activity POC ABG pH POC ABG pCO2 POC ABG pO2 Sodium 129 L Potassium 3.3 L Chloride 88.8 L Carbon Dioxide 20 L BUN 29 H Creatinine 2.8 H Glucose POC Glucose 68 L 127 H Lactic Acid Calcium 7.2 L Phosphorus Magnesium Direct Bilirubin AST ALT Alkaline Phosphatase Lactate Dehydrogenase Troponin T C-Reactive Protein Total Protein Albumin Prealbumin Triglycerides Cholesterol LDL Cholesterol Direct HDL Cholesterol Urine pH Urine WBC (Auto) Urine Creatinine Urine Total Protein Fluid Total Protein Vancomycin Trough Rheumatoid Factor Complement C4 Miscellaneous Test Crossmatch 10/03/16 10/03/16 10/03/16 14:42 18:21 19:09 WBC RBC Hgb Hct MCV MCH MCHC RDW Plt Count Lymph % (Auto) [place] % (Auto) Lymph # [place] # Baso # Seg Neutrophils % Seg Neuts % (Manual) Lymphocytes % (Manual) Monocytes % (Manual) Eosinophils % (Manual) Basophils % (Manual) Nucleated RBC % Seg Neutrophils # Seg Neutrophils # Man Lymphocytes # (Manual) Monocytes # (Manual) Eosinophils # (Manual) PT INR Fibrinogen dRVVT Confirm Interp Factor V Activity POC ABG pH 7.499 H POC ABG pCO2 28.4 L POC ABG pO2 44 L Sodium Potassium Chloride Carbon Dioxide BUN Creatinine Glucose POC Glucose 64 L 205 H Lactic Acid Calcium Phosphorus Magnesium Direct Bilirubin AST ALT Alkaline Phosphatase Lactate Dehydrogenase Troponin T C-Reactive Protein Total Protein Albumin Prealbumin Triglycerides Cholesterol LDL Cholesterol Direct HDL Cholesterol Urine pH Urine WBC (Auto) Urine Creatinine Urine Total Protein Fluid Total Protein Vancomycin Trough Rheumatoid Factor Complement C4 Miscellaneous Test Crossmatch 10/03/16 10/04/16 10/04/16 23:33 04:18 06:30 WBC RBC 2.54 L Hgb 7.1 L Hct 21.7 L MCV MCH MCHC RDW 19.5 H Plt Count 76 L Lymph % (Auto) [place] % (Auto) Lymph # [place] # Baso # Seg Neutrophils % Seg Neuts % (Manual) 88.0 H Lymphocytes % (Manual) 6.0 L Monocytes % (Manual) Eosinophils % (Manual) Basophils % (Manual) Nucleated RBC % Seg Neutrophils # Seg Neutrophils # Man 8.8 H Lymphocytes # (Manual) 0.6 L Monocytes # (Manual) Eosinophils # (Manual) PT INR Fibrinogen dRVVT Confirm Interp Factor V Activity POC ABG pH 7.461 H POC ABG pCO2 33.6 L POC ABG pO2 211 H Sodium Potassium Chloride Carbon Dioxide BUN Creatinine Glucose POC Glucose 136 H Lactic Acid Calcium Phosphorus Magnesium Direct Bilirubin AST ALT Alkaline Phosphatase Lactate Dehydrogenase Troponin T C-Reactive Protein Total Protein Albumin Prealbumin Triglycerides Cholesterol LDL Cholesterol Direct HDL Cholesterol Urine pH Urine WBC (Auto) Urine Creatinine Urine Total Protein Fluid Total Protein Vancomycin Trough Rheumatoid Factor Complement C4 Miscellaneous Test Crossmatch 10/04/16 10/04/16 10/04/16 06:30 11:45 17:54 WBC RBC Hgb Hct MCV MCH MCHC RDW Plt Count Lymph % (Auto) [place] % (Auto) Lymph # [place] # Baso # Seg Neutrophils % Seg Neuts % (Manual) Lymphocytes % (Manual) Monocytes % (Manual) Eosinophils % (Manual) Basophils % (Manual) Nucleated RBC % Seg Neutrophils # Seg Neutrophils # Man Lymphocytes # (Manual) Monocytes # (Manual) Eosinophils # (Manual) PT INR Fibrinogen dRVVT Confirm Interp Factor V Activity POC ABG pH POC ABG pCO2 POC ABG pO2 Sodium 128 L Potassium Chloride 87.4 L Carbon Dioxide 20 L BUN 34 H Creatinine 2.9 H Glucose 127 H POC Glucose 158 H 160 H Lactic Acid Calcium 7.4 L Phosphorus Magnesium Direct Bilirubin AST ALT Alkaline Phosphatase Lactate Dehydrogenase Troponin T C-Reactive Protein Total Protein Albumin Prealbumin Triglycerides Cholesterol LDL Cholesterol Direct HDL Cholesterol Urine pH Urine WBC (Auto) Urine Creatinine Urine Total Protein Fluid Total Protein Vancomycin Trough Rheumatoid Factor Complement C4 Miscellaneous Test Crossmatch 10/04/16 10/05/16 10/05/16 23:25 04:30 05:00 WBC RBC 2.64 L Hgb 7.5 L Hct 22.6 L MCV MCH MCHC RDW 19.3 H Plt Count 80 L Lymph % (Auto) [place] % (Auto) Lymph # [place] # Baso # Seg Neutrophils % Seg Neuts % (Manual) Lymphocytes % (Manual) 12.0 L Monocytes % (Manual) Eosinophils % (Manual) Basophils % (Manual) Nucleated RBC % Seg Neutrophils # Seg Neutrophils # Man Lymphocytes # (Manual) Monocytes # (Manual) Eosinophils # (Manual) PT INR Fibrinogen dRVVT Confirm Interp Factor V Activity POC ABG pH 7.475 H POC ABG pCO2 33.3 L POC ABG pO2 140 H Sodium Potassium Chloride Carbon Dioxide BUN Creatinine Glucose POC Glucose 141 H Lactic Acid Calcium Phosphorus Magnesium Direct Bilirubin AST ALT Alkaline Phosphatase Lactate Dehydrogenase Troponin T C-Reactive Protein Total Protein Albumin Prealbumin Triglycerides Cholesterol LDL Cholesterol Direct HDL Cholesterol Urine pH Urine WBC (Auto) Urine Creatinine Urine Total Protein Fluid Total Protein Vancomycin Trough Rheumatoid Factor Complement C4 Miscellaneous Test Crossmatch 10/05/16 10/05/16 10/05/16 05:00 05:09 12:58 WBC RBC Hgb Hct MCV MCH MCHC RDW Plt Count Lymph % (Auto) [place] % (Auto) Lymph # [place] # Baso # Seg Neutrophils % Seg Neuts % (Manual) Lymphocytes % (Manual) Monocytes % (Manual) Eosinophils % (Manual) Basophils % (Manual) Nucleated RBC % Seg Neutrophils # Seg Neutrophils # Man Lymphocytes # (Manual) Monocytes # (Manual) Eosinophils # (Manual) PT INR Fibrinogen dRVVT Confirm Interp Factor V Activity POC ABG pH POC ABG pCO2 POC ABG pO2 Sodium 131 L Potassium Chloride 94.0 L Carbon Dioxide 20 L BUN 22 H Creatinine 2.0 H Glucose 123 H POC Glucose 166 H 179 H Lactic Acid Calcium 7.7 L Phosphorus 2.20 L D Magnesium Direct Bilirubin AST ALT Alkaline Phosphatase Lactate Dehydrogenase Troponin T C-Reactive Protein Total Protein Albumin Prealbumin Triglycerides Cholesterol LDL Cholesterol Direct HDL Cholesterol Urine pH Urine WBC (Auto) Urine Creatinine Urine Total Protein Fluid Total Protein Vancomycin Trough Rheumatoid Factor Complement C4 Miscellaneous Test Crossmatch 10/05/16 10/05/16 10/05/16 15:50 18:53 23:12 WBC RBC Hgb Hct MCV MCH MCHC RDW Plt Count Lymph % (Auto) [place] % (Auto) Lymph # [place] # Baso # Seg Neutrophils % Seg Neuts % (Manual) Lymphocytes % (Manual) Monocytes % (Manual) Eosinophils % (Manual) Basophils % (Manual) Nucleated RBC % Seg Neutrophils # Seg Neutrophils # Man Lymphocytes # (Manual) Monocytes # (Manual) Eosinophils # (Manual) PT INR Fibrinogen dRVVT Confirm Interp Factor V Activity POC ABG pH POC ABG pCO2 POC ABG pO2 Sodium Potassium Chloride Carbon Dioxide BUN Creatinine Glucose POC Glucose 150 H 164 H Lactic Acid Calcium Phosphorus Magnesium Direct Bilirubin AST ALT Alkaline Phosphatase Lactate Dehydrogenase Troponin T C-Reactive Protein Total Protein Albumin Prealbumin Triglycerides Cholesterol LDL Cholesterol Direct HDL Cholesterol Urine pH Urine WBC (Auto) Urine Creatinine Urine Total Protein Fluid Total Protein Vancomycin Trough Rheumatoid Factor Complement C4 Miscellaneous Test Crossmatch See Detail 10/06/16 10/06/16 10/06/16 03:50 03:50 04:53 WBC RBC 3.00 L Hgb 8.6 L Hct 25.8 L MCV MCH MCHC RDW 17.9 H Plt Count 65 L Lymph % (Auto) [place] % (Auto) Lymph # [place] # Baso # Seg Neutrophils % Seg Neuts % (Manual) 30.0 L Lymphocytes % (Manual) 5.0 L Monocytes % (Manual) Eosinophils % (Manual) Basophils % (Manual) Nucleated RBC % Seg Neutrophils # Seg Neutrophils # Man Lymphocytes # (Manual) 0.4 L Monocytes # (Manual) Eosinophils # (Manual) PT INR Fibrinogen dRVVT Confirm Interp Factor V Activity POC ABG pH 7.310 L POC ABG pCO2 49.0 H POC ABG pO2 Sodium 133 L Potassium Chloride 95.9 L Carbon Dioxide BUN 26 H Creatinine 2.0 H Glucose 116 H POC Glucose Lactic Acid Calcium 7.8 L Phosphorus Magnesium Direct Bilirubin AST ALT Alkaline Phosphatase Lactate Dehydrogenase Troponin T C-Reactive Protein Total Protein Albumin Prealbumin Triglycerides Cholesterol LDL Cholesterol Direct HDL Cholesterol Urine pH Urine WBC (Auto) Urine Creatinine Urine Total Protein Fluid Total Protein Vancomycin Trough Rheumatoid Factor Complement C4 Miscellaneous Test Crossmatch 10/06/16 10/06/16 10/06/16 05:23 11:52 18:34 WBC RBC Hgb Hct MCV MCH MCHC RDW Plt Count Lymph % (Auto) [place] % (Auto) Lymph # [place] # Baso # Seg Neutrophils % Seg Neuts % (Manual) Lymphocytes % (Manual) Monocytes % (Manual) Eosinophils % (Manual) Basophils % (Manual) Nucleated RBC % Seg Neutrophils # Seg Neutrophils # Man Lymphocytes # (Manual) Monocytes # (Manual) Eosinophils # (Manual) PT INR Fibrinogen dRVVT Confirm Interp Factor V Activity POC ABG pH POC ABG pCO2 POC ABG pO2 Sodium Potassium Chloride Carbon Dioxide BUN Creatinine Glucose POC Glucose 126 H 116 H 129 H Lactic Acid Calcium Phosphorus Magnesium Direct Bilirubin AST ALT Alkaline Phosphatase Lactate Dehydrogenase Troponin T C-Reactive Protein Total Protein Albumin Prealbumin Triglycerides Cholesterol LDL Cholesterol Direct HDL Cholesterol Urine pH Urine WBC (Auto) Urine Creatinine Urine Total Protein Fluid Total Protein Vancomycin Trough Rheumatoid Factor Complement C4 Miscellaneous Test Crossmatch 10/07/16 10/07/16 10/07/16 03:45 05:00 10:00 WBC 17.0 H RBC 2.68 L Hgb 7.3 L Hct 25.3 L MCV MCH 27 L MCHC 29 L RDW 19.6 H Plt Count 74 L Lymph % (Auto) [place] % (Auto) Lymph # [place] # Baso # Seg Neutrophils % Seg Neuts % (Manual) Lymphocytes % (Manual) 12.0 L Monocytes % (Manual) Eosinophils % (Manual) Basophils % (Manual) Nucleated RBC % 4.0 H Seg Neutrophils # Seg Neutrophils # Man 10.7 H Lymphocytes # (Manual) Monocytes # (Manual) Eosinophils # (Manual) PT INR Fibrinogen dRVVT Confirm Interp Factor V Activity POC ABG pH POC ABG pCO2 POC ABG pO2 Sodium 130 L Potassium 3.2 L Chloride 93.9 L Carbon Dioxide 20 L BUN 44 H Creatinine 2.7 H Glucose 129 H POC Glucose Lactic Acid Calcium 7.4 L Phosphorus Magnesium Direct Bilirubin AST ALT 6 L Alkaline Phosphatase 195 H Lactate Dehydrogenase Troponin T C-Reactive Protein Total Protein 4.9 L Albumin 1.0 L Prealbumin Triglycerides Cholesterol LDL Cholesterol Direct HDL Cholesterol Urine pH Urine WBC (Auto) Urine Creatinine Urine Total Protein Fluid Total Protein Vancomycin Trough Rheumatoid Factor Complement C4 Miscellaneous Test Flexitest 1 H Crossmatch 10/07/16 10/07/16 10/07/16 10:00 11:24 18:10 WBC RBC Hgb Hct MCV MCH MCHC RDW Plt Count Lymph % (Auto) [place] % (Auto) Lymph # [place] # Baso # Seg Neutrophils % Seg Neuts % (Manual) Lymphocytes % (Manual) Monocytes % (Manual) Eosinophils % (Manual) Basophils % (Manual) Nucleated RBC % Seg Neutrophils # Seg Neutrophils # Man Lymphocytes # (Manual) Monocytes # (Manual) Eosinophils # (Manual) PT INR Fibrinogen dRVVT Confirm Interp Factor V Activity POC ABG pH POC ABG pCO2 POC ABG pO2 Sodium Potassium Chloride Carbon Dioxide BUN Creatinine Glucose POC Glucose 116 H 130 H Lactic Acid Calcium Phosphorus Magnesium Direct Bilirubin AST ALT Alkaline Phosphatase Lactate Dehydrogenase Troponin T C-Reactive Protein 19.40 H Total Protein Albumin Prealbumin Triglycerides Cholesterol LDL Cholesterol Direct HDL Cholesterol Urine pH Urine WBC (Auto) Urine Creatinine Urine Total Protein Fluid Total Protein Vancomycin Trough Rheumatoid Factor Complement C4 Miscellaneous Test Crossmatch 10/07/16 10/08/16 10/08/16 18:30 00:00 04:00 WBC RBC Hgb Hct MCV MCH MCHC RDW Plt Count Lymph % (Auto) [place] % (Auto) Lymph # [place] # Baso # Seg Neutrophils % Seg Neuts % (Manual) Lymphocytes % (Manual) Monocytes % (Manual) Eosinophils % (Manual) Basophils % (Manual) Nucleated RBC % Seg Neutrophils # Seg Neutrophils # Man Lymphocytes # (Manual) Monocytes # (Manual) Eosinophils # (Manual) PT INR Fibrinogen dRVVT Confirm Interp Factor V Activity POC ABG pH POC ABG pCO2 POC ABG pO2 Sodium 132 L Potassium 3.3 L Chloride 93.6 L Carbon Dioxide 17 L BUN 59 H Creatinine 2.7 H Glucose 121 H POC Glucose 122 H Lactic Acid Calcium 7.6 L Phosphorus Magnesium Direct Bilirubin AST ALT Alkaline Phosphatase Lactate Dehydrogenase Troponin T C-Reactive Protein Total Protein Albumin Prealbumin Triglycerides Cholesterol LDL Cholesterol Direct HDL Cholesterol Urine pH Urine WBC (Auto) > 182.0 H Urine Creatinine Urine Total Protein Fluid Total Protein Vancomycin Trough Rheumatoid Factor Complement C4 Miscellaneous Test Crossmatch 10/08/16 10/08/16 10/08/16 04:30 05:30 11:51 WBC RBC 5.15 H Hgb 14.4 H D Hct 44.5 H D MCV MCH MCHC RDW 19.5 H Plt Count 56 L Lymph % (Auto) [place] % (Auto) Lymph # [place] # Baso # Seg Neutrophils % Seg Neuts % (Manual) 24.0 L Lymphocytes % (Manual) 8.0 L Monocytes % (Manual) Eosinophils % (Manual) Basophils % (Manual) Nucleated RBC % 9.0 H Seg Neutrophils # Seg Neutrophils # Man Lymphocytes # (Manual) 0.7 L Monocytes # (Manual) Eosinophils # (Manual) PT INR Fibrinogen dRVVT Confirm Interp Factor V Activity POC ABG pH POC ABG pCO2 POC ABG pO2 Sodium Potassium Chloride Carbon Dioxide BUN Creatinine Glucose POC Glucose 125 H 150 H Lactic Acid Calcium Phosphorus Magnesium Direct Bilirubin AST ALT Alkaline Phosphatase Lactate Dehydrogenase Troponin T C-Reactive Protein Total Protein Albumin Prealbumin Triglycerides Cholesterol LDL Cholesterol Direct HDL Cholesterol Urine pH Urine WBC (Auto) Urine Creatinine Urine Total Protein Fluid Total Protein Vancomycin Trough Rheumatoid Factor Complement C4 Miscellaneous Test Crossmatch 10/08/16 10/08/16 10/08/16 12:49 17:07 19:30 WBC RBC Hgb 7.1 L D Hct 22.4 L D MCV MCH MCHC RDW Plt Count Lymph % (Auto) [place] % (Auto) Lymph # [place] # Baso # Seg Neutrophils % Seg Neuts % (Manual) Lymphocytes % (Manual) Monocytes % (Manual) Eosinophils % (Manual) Basophils % (Manual) Nucleated RBC % Seg Neutrophils # Seg Neutrophils # Man Lymphocytes # (Manual) Monocytes # (Manual) Eosinophils # (Manual) PT INR Fibrinogen dRVVT Confirm Interp Factor V Activity POC ABG pH POC ABG pCO2 28.2 L POC ABG pO2 111 H Sodium Potassium Chloride Carbon Dioxide BUN Creatinine Glucose POC Glucose 145 H Lactic Acid Calcium Phosphorus Magnesium Direct Bilirubin AST ALT Alkaline Phosphatase Lactate Dehydrogenase Troponin T C-Reactive Protein Total Protein Albumin Prealbumin Triglycerides Cholesterol LDL Cholesterol Direct HDL Cholesterol Urine pH Urine WBC (Auto) Urine Creatinine Urine Total Protein Fluid Total Protein Vancomycin Trough Rheumatoid Factor Complement C4 Miscellaneous Test Crossmatch 10/08/16 10/09/16 10/09/16 19:30 03:45 03:45 WBC 12.6 H RBC 2.36 L Hgb 6.7 L Hct 21.1 L MCV MCH MCHC RDW 19.5 H Plt Count 75 L Lymph % (Auto) [place] % (Auto) Lymph # [place] # Baso # Seg Neutrophils % Seg Neuts % (Manual) Lymphocytes % (Manual) Monocytes % (Manual) 10.0 H Eosinophils % (Manual) Basophils % (Manual) Nucleated RBC % 3.0 H Seg Neutrophils # Seg Neutrophils # Man Lymphocytes # (Manual) Monocytes # (Manual) 1.3 H Eosinophils # (Manual) PT 18.0 H INR 1.41 H Fibrinogen dRVVT Confirm Interp Factor V Activity POC ABG pH POC ABG pCO2 POC ABG pO2 Sodium 135 L Potassium Chloride Carbon Dioxide 17 L BUN 81 H Creatinine 3.2 H Glucose 109 H POC Glucose Lactic Acid Calcium 7.4 L Phosphorus 4.60 H D Magnesium Direct Bilirubin AST ALT Alkaline Phosphatase Lactate Dehydrogenase Troponin T C-Reactive Protein Total Protein Albumin Prealbumin Triglycerides Cholesterol LDL Cholesterol Direct HDL Cholesterol Urine pH Urine WBC (Auto) Urine Creatinine Urine Total Protein Fluid Total Protein Vancomycin Trough Rheumatoid Factor Complement C4 Miscellaneous Test Crossmatch 10/09/16 10/09/16 10/09/16 03:45 05:14 07:20 WBC RBC Hgb Hct MCV MCH MCHC RDW Plt Count Lymph % (Auto) [place] % (Auto) Lymph # [place] # Baso # Seg Neutrophils % Seg Neuts % (Manual) Lymphocytes % (Manual) Monocytes % (Manual) Eosinophils % (Manual) Basophils % (Manual) Nucleated RBC % Seg Neutrophils # Seg Neutrophils # Man Lymphocytes # (Manual) Monocytes # (Manual) Eosinophils # (Manual) PT 19.0 H INR 1.51 H Fibrinogen dRVVT Confirm Interp Factor V Activity POC ABG pH POC ABG pCO2 POC ABG pO2 Sodium Potassium Chloride Carbon Dioxide BUN Creatinine Glucose POC Glucose 151 H Lactic Acid Calcium Phosphorus Magnesium Direct Bilirubin AST ALT Alkaline Phosphatase Lactate Dehydrogenase Troponin T C-Reactive Protein Total Protein Albumin Prealbumin Triglycerides Cholesterol LDL Cholesterol Direct HDL Cholesterol Urine pH Urine WBC (Auto) Urine Creatinine Urine Total Protein Fluid Total Protein Vancomycin Trough Rheumatoid Factor Complement C4 Miscellaneous Test Crossmatch See Detail 10/09/16 10/09/16 10/09/16 11:46 16:20 16:43 WBC RBC Hgb 7.2 L Hct 22.2 L MCV MCH MCHC RDW Plt Count Lymph % (Auto) [place] % (Auto) Lymph # [place] # Baso # Seg Neutrophils % Seg Neuts % (Manual) Lymphocytes % (Manual) Monocytes % (Manual) Eosinophils % (Manual) Basophils % (Manual) Nucleated RBC % Seg Neutrophils # Seg Neutrophils # Man Lymphocytes # (Manual) Monocytes # (Manual) Eosinophils # (Manual) PT INR Fibrinogen dRVVT Confirm Interp Factor V Activity POC ABG pH POC ABG pCO2 POC ABG pO2 Sodium Potassium Chloride Carbon Dioxide BUN Creatinine Glucose POC Glucose 133 H 141 H Lactic Acid Calcium Phosphorus Magnesium Direct Bilirubin AST ALT Alkaline Phosphatase Lactate Dehydrogenase Troponin T C-Reactive Protein Total Protein Albumin Prealbumin Triglycerides Cholesterol LDL Cholesterol Direct HDL Cholesterol Urine pH Urine WBC (Auto) Urine Creatinine Urine Total Protein Fluid Total Protein Vancomycin Trough Rheumatoid Factor Complement C4 Miscellaneous Test Crossmatch 10/10/16 10/10/16 10/10/16 05:00 05:00 11:19 WBC 18.5 H RBC 2.19 L Hgb 6.4 L Hct 19.6 L* MCV MCH MCHC RDW 19.3 H Plt Count 93 L Lymph % (Auto) [place] % (Auto) Lymph # [place] # Baso # Seg Neutrophils % Seg Neuts % (Manual) Lymphocytes % (Manual) 10.0 L Monocytes % (Manual) Eosinophils % (Manual) Basophils % (Manual) Nucleated RBC % 4.0 H Seg Neutrophils # Seg Neutrophils # Man 11.3 H Lymphocytes # (Manual) Monocytes # (Manual) Eosinophils # (Manual) PT INR Fibrinogen dRVVT Confirm Interp Factor V Activity POC ABG pH POC ABG pCO2 POC ABG pO2 Sodium Potassium 5.7 H D Chloride Carbon Dioxide 16 L BUN 94 H Creatinine 3.1 H Glucose 131 H POC Glucose 153 H Lactic Acid Calcium 8.2 L Phosphorus 5.10 H Magnesium 2.40 H Direct Bilirubin 0.3 H AST ALT < 5 L Alkaline Phosphatase 319 H Lactate Dehydrogenase Troponin T C-Reactive Protein Total Protein 5.1 L Albumin 1.0 L Prealbumin Triglycerides Cholesterol LDL Cholesterol Direct HDL Cholesterol Urine pH Urine WBC (Auto) Urine Creatinine Urine Total Protein Fluid Total Protein Vancomycin Trough Rheumatoid Factor Complement C4 Miscellaneous Test Crossmatch 10/10/16 10/10/16 10/11/16 17:50 23:30 04:15 WBC RBC Hgb Hct MCV MCH MCHC RDW Plt Count Lymph % (Auto) [place] % (Auto) Lymph # [place] # Baso # Seg Neutrophils % Seg Neuts % (Manual) Lymphocytes % (Manual) Monocytes % (Manual) Eosinophils % (Manual) Basophils % (Manual) Nucleated RBC % Seg Neutrophils # Seg Neutrophils # Man Lymphocytes # (Manual) Monocytes # (Manual) Eosinophils # (Manual) PT INR Fibrinogen dRVVT Confirm Interp Factor V Activity POC ABG pH POC ABG pCO2 POC ABG pO2 Sodium Potassium Chloride 96.4 L Carbon Dioxide 21 L BUN 57 H Creatinine 2.1 H Glucose 151 H POC Glucose 146 H 141 H Lactic Acid Calcium 8.3 L Phosphorus Magnesium Direct Bilirubin AST ALT Alkaline Phosphatase Lactate Dehydrogenase Troponin T C-Reactive Protein Total Protein Albumin Prealbumin Triglycerides Cholesterol LDL Cholesterol Direct HDL Cholesterol Urine pH Urine WBC (Auto) Urine Creatinine Urine Total Protein Fluid Total Protein Vancomycin Trough Rheumatoid Factor Complement C4 Miscellaneous Test Crossmatch 10/11/16 10/11/16 10/11/16 04:15 04:15 05:30 WBC 28.3 H RBC 3.12 L Hgb 9.3 L Hct 28.7 L D MCV MCH MCHC RDW 17.7 H Plt Count 128 L Lymph % (Auto) [place] % (Auto) Lymph # [place] # Baso # Seg Neutrophils % Seg Neuts % (Manual) Lymphocytes % (Manual) Monocytes % (Manual) Eosinophils % (Manual) Basophils % (Manual) Nucleated RBC % Seg Neutrophils # Seg Neutrophils # Man Lymphocytes # (Manual) Monocytes # (Manual) Eosinophils # (Manual) PT INR Fibrinogen dRVVT Confirm Interp Factor V Activity POC ABG pH POC ABG pCO2 POC ABG pO2 Sodium Potassium Chloride Carbon Dioxide BUN Creatinine Glucose POC Glucose 167 H Lactic Acid Calcium Phosphorus Magnesium Direct Bilirubin AST ALT Alkaline Phosphatase Lactate Dehydrogenase Troponin T C-Reactive Protein 15.80 H Total Protein Albumin Prealbumin Triglycerides Cholesterol LDL Cholesterol Direct HDL Cholesterol Urine pH Urine WBC (Auto) Urine Creatinine Urine Total Protein Fluid Total Protein Vancomycin Trough Rheumatoid Factor Complement C4 Miscellaneous Test Crossmatch 10/11/16 10/11/16 10/11/16 11:40 15:49 23:57 WBC RBC Hgb Hct MCV MCH MCHC RDW Plt Count Lymph % (Auto) [place] % (Auto) Lymph # [place] # Baso # Seg Neutrophils % Seg Neuts % (Manual) Lymphocytes % (Manual) Monocytes % (Manual) Eosinophils % (Manual) Basophils % (Manual) Nucleated RBC % Seg Neutrophils # Seg Neutrophils # Man Lymphocytes # (Manual) Monocytes # (Manual) Eosinophils # (Manual) PT INR Fibrinogen dRVVT Confirm Interp Factor V Activity POC ABG pH POC ABG pCO2 POC ABG pO2 Sodium Potassium Chloride Carbon Dioxide BUN Creatinine Glucose POC Glucose 139 H 168 H 161 H Lactic Acid Calcium Phosphorus Magnesium Direct Bilirubin AST ALT Alkaline Phosphatase Lactate Dehydrogenase Troponin T C-Reactive Protein Total Protein Albumin Prealbumin Triglycerides Cholesterol LDL Cholesterol Direct HDL Cholesterol Urine pH Urine WBC (Auto) Urine Creatinine Urine Total Protein Fluid Total Protein Vancomycin Trough Rheumatoid Factor Complement C4 Miscellaneous Test Crossmatch 10/12/16 10/12/16 10/12/16 04:40 04:40 05:44 WBC 22.5 H RBC 2.88 L Hgb 8.8 L Hct 26.8 L MCV MCH MCHC RDW 17.8 H Plt Count Lymph % (Auto) [place] % (Auto) Lymph # [place] # Baso # Seg Neutrophils % Seg Neuts % (Manual) Lymphocytes % (Manual) Monocytes % (Manual) Eosinophils % (Manual) Basophils % (Manual) Nucleated RBC % Seg Neutrophils # Seg Neutrophils # Man Lymphocytes # (Manual) Monocytes # (Manual) Eosinophils # (Manual) PT INR Fibrinogen dRVVT Confirm Interp Factor V Activity POC ABG pH POC ABG pCO2 POC ABG pO2 Sodium 134 L Potassium Chloride 93.0 L Carbon Dioxide BUN 74 H Creatinine 2.5 H Glucose 137 H POC Glucose 158 H Lactic Acid Calcium 8.2 L Phosphorus Magnesium Direct Bilirubin AST ALT Alkaline Phosphatase Lactate Dehydrogenase Troponin T C-Reactive Protein Total Protein Albumin Prealbumin Triglycerides Cholesterol LDL Cholesterol Direct HDL Cholesterol Urine pH Urine WBC (Auto) Urine Creatinine Urine Total Protein Fluid Total Protein Vancomycin Trough Rheumatoid Factor Complement C4 Miscellaneous Test Crossmatch 10/12/16 10/12/16 10/12/16 12:27 18:18 23:46 WBC RBC Hgb Hct MCV MCH MCHC RDW Plt Count Lymph % (Auto) [place] % (Auto) Lymph # [place] # Baso # Seg Neutrophils % Seg Neuts % (Manual) Lymphocytes % (Manual) Monocytes % (Manual) Eosinophils % (Manual) Basophils % (Manual) Nucleated RBC % Seg Neutrophils # Seg Neutrophils # Man Lymphocytes # (Manual) Monocytes # (Manual) Eosinophils # (Manual) PT INR Fibrinogen dRVVT Confirm Interp Factor V Activity POC ABG pH POC ABG pCO2 POC ABG pO2 Sodium Potassium Chloride Carbon Dioxide BUN Creatinine Glucose POC Glucose 153 H 140 H 150 H Lactic Acid Calcium Phosphorus Magnesium Direct Bilirubin AST ALT Alkaline Phosphatase Lactate Dehydrogenase Troponin T C-Reactive Protein Total Protein Albumin Prealbumin Triglycerides Cholesterol LDL Cholesterol Direct HDL Cholesterol Urine pH Urine WBC (Auto) Urine Creatinine Urine Total Protein Fluid Total Protein Vancomycin Trough Rheumatoid Factor Complement C4 Miscellaneous Test Crossmatch 10/13/16 10/13/16 10/13/16 06:22 09:20 12:29 WBC RBC Hgb Hct MCV MCH MCHC RDW Plt Count Lymph % (Auto) [place] % (Auto) Lymph # [place] # Baso # Seg Neutrophils % Seg Neuts % (Manual) Lymphocytes % (Manual) Monocytes % (Manual) Eosinophils % (Manual) Basophils % (Manual) Nucleated RBC % Seg Neutrophils # Seg Neutrophils # Man Lymphocytes # (Manual) Monocytes # (Manual) Eosinophils # (Manual) PT INR Fibrinogen dRVVT Confirm Interp Factor V Activity POC ABG pH POC ABG pCO2 POC ABG pO2 Sodium Potassium Chloride Carbon Dioxide BUN Creatinine Glucose POC Glucose 165 H 193 H Lactic Acid Calcium Phosphorus Magnesium Direct Bilirubin AST ALT Alkaline Phosphatase Lactate Dehydrogenase Troponin T C-Reactive Protein Total Protein Albumin Prealbumin Triglycerides Cholesterol LDL Cholesterol Direct HDL Cholesterol Urine pH Urine WBC (Auto) Urine Creatinine Urine Total Protein Fluid Total Protein Vancomycin Trough Rheumatoid Factor Complement C4 Miscellaneous Test Flexitest 1 H Crossmatch 10/13/16 10/13/16 10/13/16 18:09 Unknown Unknown WBC 23.4 H RBC 2.83 L Hgb 8.7 L Hct 26.1 L MCV MCH MCHC RDW 18.1 H Plt Count Lymph % (Auto) [place] % (Auto) Lymph # [place] # Baso # Seg Neutrophils % Seg Neuts % (Manual) Lymphocytes % (Manual) Monocytes % (Manual) Eosinophils % (Manual) Basophils % (Manual) Nucleated RBC % Seg Neutrophils # Seg Neutrophils # Man Lymphocytes # (Manual) Monocytes # (Manual) Eosinophils # (Manual) PT INR Fibrinogen dRVVT Confirm Interp Factor V Activity POC ABG pH POC ABG pCO2 POC ABG pO2 Sodium Potassium Chloride 95.8 L Carbon Dioxide BUN 82 H Creatinine 2.6 H Glucose 152 H POC Glucose 166 H Lactic Acid Calcium Phosphorus Magnesium Direct Bilirubin AST ALT Alkaline Phosphatase Lactate Dehydrogenase Troponin T C-Reactive Protein Total Protein Albumin Prealbumin Triglycerides Cholesterol LDL Cholesterol Direct HDL Cholesterol Urine pH Urine WBC (Auto) Urine Creatinine Urine Total Protein Fluid Total Protein Vancomycin Trough Rheumatoid Factor Complement C4 Miscellaneous Test Crossmatch 10/14/16 10/14/16 10/14/16 05:38 06:35 08:10 WBC 20.7 H RBC 2.81 L Hgb 8.4 L Hct 27.2 L MCV MCH MCHC RDW 19.4 H Plt Count Lymph % (Auto) [place] % (Auto) Lymph # [place] # Baso # Seg Neutrophils % Seg Neuts % (Manual) Lymphocytes % (Manual) Monocytes % (Manual) Eosinophils % (Manual) Basophils % (Manual) Nucleated RBC % Seg Neutrophils # Seg Neutrophils # Man Lymphocytes # (Manual) Monocytes # (Manual) Eosinophils # (Manual) PT INR Fibrinogen dRVVT Confirm Interp Factor V Activity POC ABG pH POC ABG pCO2 POC ABG pO2 Sodium Potassium Chloride Carbon Dioxide BUN 58 H Creatinine 1.9 H Glucose 169 H POC Glucose 195 H Lactic Acid Calcium Phosphorus Magnesium Direct Bilirubin AST ALT Alkaline Phosphatase Lactate Dehydrogenase Troponin T C-Reactive Protein Total Protein Albumin Prealbumin Triglycerides Cholesterol LDL Cholesterol Direct HDL Cholesterol Urine pH Urine WBC (Auto) Urine Creatinine Urine Total Protein Fluid Total Protein Vancomycin Trough Rheumatoid Factor Complement C4 Miscellaneous Test Crossmatch 10/14/16 10/14/16 10/14/16 11:44 17:13 23:28 WBC RBC Hgb Hct MCV MCH MCHC RDW Plt Count Lymph % (Auto) [place] % (Auto) Lymph # [place] # Baso # Seg Neutrophils % Seg Neuts % (Manual) Lymphocytes % (Manual) Monocytes % (Manual) Eosinophils % (Manual) Basophils % (Manual) Nucleated RBC % Seg Neutrophils # Seg Neutrophils # Man Lymphocytes # (Manual) Monocytes # (Manual) Eosinophils # (Manual) PT INR Fibrinogen dRVVT Confirm Interp Factor V Activity POC ABG pH POC ABG pCO2 POC ABG pO2 Sodium Potassium Chloride Carbon Dioxide BUN Creatinine Glucose POC Glucose 174 H 121 H 151 H Lactic Acid Calcium Phosphorus Magnesium Direct Bilirubin AST ALT Alkaline Phosphatase Lactate Dehydrogenase Troponin T C-Reactive Protein Total Protein Albumin Prealbumin Triglycerides Cholesterol LDL Cholesterol Direct HDL Cholesterol Urine pH Urine WBC (Auto) Urine Creatinine Urine Total Protein Fluid Total Protein Vancomycin Trough Rheumatoid Factor Complement C4 Miscellaneous Test Crossmatch 10/15/16 10/15/16 10/15/16 05:06 12:26 17:48 WBC RBC Hgb Hct MCV MCH MCHC RDW Plt Count Lymph % (Auto) [place] % (Auto) Lymph # [place] # Baso # Seg Neutrophils % Seg Neuts % (Manual) Lymphocytes % (Manual) Monocytes % (Manual) Eosinophils % (Manual) Basophils % (Manual) Nucleated RBC % Seg Neutrophils # Seg Neutrophils # Man Lymphocytes # (Manual) Monocytes # (Manual) Eosinophils # (Manual) PT INR Fibrinogen dRVVT Confirm Interp Factor V Activity POC ABG pH POC ABG pCO2 POC ABG pO2 Sodium Potassium Chloride Carbon Dioxide BUN Creatinine Glucose POC Glucose 151 H 149 H 153 H Lactic Acid Calcium Phosphorus Magnesium Direct Bilirubin AST ALT Alkaline Phosphatase Lactate Dehydrogenase Troponin T C-Reactive Protein Total Protein Albumin Prealbumin Triglycerides Cholesterol LDL Cholesterol Direct HDL Cholesterol Urine pH Urine WBC (Auto) Urine Creatinine Urine Total Protein Fluid Total Protein Vancomycin Trough Rheumatoid Factor Complement C4 Miscellaneous Test Crossmatch 10/15/16 10/15/16 10/16/16 Unknown Unknown 00:02 WBC 23.4 H RBC 2.78 L Hgb 8.5 L Hct 25.7 L MCV MCH MCHC RDW 18.7 H Plt Count Lymph % (Auto) [place] % (Auto) Lymph # [place] # Baso # Seg Neutrophils % Seg Neuts % (Manual) Lymphocytes % (Manual) Monocytes % (Manual) Eosinophils % (Manual) Basophils % (Manual) Nucleated RBC % Seg Neutrophils # Seg Neutrophils # Man Lymphocytes # (Manual) Monocytes # (Manual) Eosinophils # (Manual) PT INR Fibrinogen dRVVT Confirm Interp Factor V Activity POC ABG pH POC ABG pCO2 POC ABG pO2 Sodium Potassium Chloride Carbon Dioxide BUN 73 H Creatinine 2.3 H Glucose 120 H POC Glucose 137 H Lactic Acid Calcium Phosphorus Magnesium Direct Bilirubin AST ALT Alkaline Phosphatase Lactate Dehydrogenase Troponin T C-Reactive Protein Total Protein Albumin Prealbumin Triglycerides Cholesterol LDL Cholesterol Direct HDL Cholesterol Urine pH Urine WBC (Auto) Urine Creatinine Urine Total Protein Fluid Total Protein Vancomycin Trough Rheumatoid Factor Complement C4 Miscellaneous Test Crossmatch 10/16/16 10/16/16 10/16/16 05:44 06:25 06:25 WBC 22.5 H RBC 2.76 L Hgb 8.3 L Hct 25.2 L MCV MCH MCHC RDW 18.3 H Plt Count Lymph % (Auto) [place] % (Auto) Lymph # [place] # Baso # Seg Neutrophils % Seg Neuts % (Manual) Lymphocytes % (Manual) Monocytes % (Manual) Eosinophils % (Manual) Basophils % (Manual) Nucleated RBC % Seg Neutrophils # Seg Neutrophils # Man Lymphocytes # (Manual) Monocytes # (Manual) Eosinophils # (Manual) PT INR Fibrinogen dRVVT Confirm Interp Factor V Activity POC ABG pH POC ABG pCO2 POC ABG pO2 Sodium Potassium Chloride Carbon Dioxide BUN 92 H Creatinine 3.0 H Glucose 138 H POC Glucose 110 H Lactic Acid Calcium Phosphorus Magnesium Direct Bilirubin AST ALT Alkaline Phosphatase Lactate Dehydrogenase Troponin T C-Reactive Protein Total Protein Albumin Prealbumin Triglycerides Cholesterol LDL Cholesterol Direct HDL Cholesterol Urine pH Urine WBC (Auto) Urine Creatinine Urine Total Protein Fluid Total Protein Vancomycin Trough Rheumatoid Factor Complement C4 Miscellaneous Test Crossmatch 10/16/16 10/16/16 10/16/16 11:27 11:48 17:36 WBC RBC Hgb Hct MCV MCH MCHC RDW Plt Count Lymph % (Auto) [place] % (Auto) Lymph # [place] # Baso # Seg Neutrophils % Seg Neuts % (Manual) Lymphocytes % (Manual) Monocytes % (Manual) Eosinophils % (Manual) Basophils % (Manual) Nucleated RBC % Seg Neutrophils # Seg Neutrophils # Man Lymphocytes # (Manual) Monocytes # (Manual) Eosinophils # (Manual) PT INR Fibrinogen dRVVT Confirm Interp Factor V Activity POC ABG pH 7.582 H POC ABG pCO2 27.4 L POC ABG pO2 110 H Sodium Potassium Chloride Carbon Dioxide BUN Creatinine Glucose POC Glucose 121 H 133 H Lactic Acid Calcium Phosphorus Magnesium Direct Bilirubin AST ALT Alkaline Phosphatase Lactate Dehydrogenase Troponin T C-Reactive Protein Total Protein Albumin Prealbumin Triglycerides Cholesterol LDL Cholesterol Direct HDL Cholesterol Urine pH Urine WBC (Auto) Urine Creatinine Urine Total Protein Fluid Total Protein Vancomycin Trough Rheumatoid Factor Complement C4 Miscellaneous Test Crossmatch 10/16/16 10/17/16 10/17/16 20:48 04:24 04:24 WBC 21.4 H RBC 2.72 L Hgb 8.0 L Hct 25.2 L MCV MCH MCHC RDW 18.0 H Plt Count Lymph % (Auto) [place] % (Auto) Lymph # [place] # Baso # Seg Neutrophils % Seg Neuts % (Manual) Lymphocytes % (Manual) Monocytes % (Manual) Eosinophils % (Manual) Basophils % (Manual) Nucleated RBC % Seg Neutrophils # Seg Neutrophils # Man Lymphocytes # (Manual) Monocytes # (Manual) Eosinophils # (Manual) PT INR Fibrinogen dRVVT Confirm Interp Factor V Activity POC ABG pH 7.561 H POC ABG pCO2 24.4 L POC ABG pO2 77 L Sodium 148 H Potassium Chloride Carbon Dioxide BUN 104 H Creatinine 3.0 H Glucose 149 H POC Glucose Lactic Acid Calcium Phosphorus Magnesium Direct Bilirubin AST ALT Alkaline Phosphatase 138 H Lactate Dehydrogenase Troponin T C-Reactive Protein Total Protein 6.2 L Albumin 1.5 L Prealbumin Triglycerides Cholesterol LDL Cholesterol Direct HDL Cholesterol Urine pH Urine WBC (Auto) Urine Creatinine Urine Total Protein Fluid Total Protein Vancomycin Trough Rheumatoid Factor Complement C4 Miscellaneous Test Crossmatch 10/17/16 10/17/16 10/17/16 06:02 12:17 17:14 WBC RBC Hgb Hct MCV MCH MCHC RDW Plt Count Lymph % (Auto) [place] % (Auto) Lymph # [place] # Baso # Seg Neutrophils % Seg Neuts % (Manual) Lymphocytes % (Manual) Monocytes % (Manual) Eosinophils % (Manual) Basophils % (Manual) Nucleated RBC % Seg Neutrophils # Seg Neutrophils # Man Lymphocytes # (Manual) Monocytes # (Manual) Eosinophils # (Manual) PT INR Fibrinogen dRVVT Confirm Interp Factor V Activity POC ABG pH POC ABG pCO2 POC ABG pO2 Sodium Potassium Chloride Carbon Dioxide BUN Creatinine Glucose POC Glucose 170 H 167 H 126 H Lactic Acid Calcium Phosphorus Magnesium Direct Bilirubin AST ALT Alkaline Phosphatase Lactate Dehydrogenase Troponin T C-Reactive Protein Total Protein Albumin Prealbumin Triglycerides Cholesterol LDL Cholesterol Direct HDL Cholesterol Urine pH Urine WBC (Auto) Urine Creatinine Urine Total Protein Fluid Total Protein Vancomycin Trough Rheumatoid Factor Complement C4 Miscellaneous Test Crossmatch 10/17/16 10/18/16 10/18/16 23:17 04:00 04:00 WBC 20.7 H RBC 2.47 L Hgb 7.4 L Hct 22.9 L MCV MCH MCHC RDW 17.5 H Plt Count Lymph % (Auto) [place] % (Auto) Lymph # [place] # Baso # Seg Neutrophils % Seg Neuts % (Manual) Lymphocytes % (Manual) Monocytes % (Manual) Eosinophils % (Manual) Basophils % (Manual) Nucleated RBC % Seg Neutrophils # Seg Neutrophils # Man Lymphocytes # (Manual) Monocytes # (Manual) Eosinophils # (Manual) PT INR Fibrinogen dRVVT Confirm Interp Factor V Activity POC ABG pH POC ABG pCO2 POC ABG pO2 Sodium 149 H Potassium Chloride 107.9 H Carbon Dioxide 20 L BUN 117 H Creatinine 3.2 H Glucose 119 H POC Glucose 121 H Lactic Acid Calcium Phosphorus Magnesium Direct Bilirubin AST ALT Alkaline Phosphatase Lactate Dehydrogenase Troponin T C-Reactive Protein Total Protein Albumin Prealbumin Triglycerides Cholesterol LDL Cholesterol Direct HDL Cholesterol Urine pH Urine WBC (Auto) Urine Creatinine Urine Total Protein Fluid Total Protein Vancomycin Trough Rheumatoid Factor Complement C4 Miscellaneous Test Crossmatch 10/18/16 10/18/16 10/18/16 05:23 10:46 17:30 WBC RBC Hgb Hct MCV MCH MCHC RDW Plt Count Lymph % (Auto) [place] % (Auto) Lymph # [place] # Baso # Seg Neutrophils % Seg Neuts % (Manual) Lymphocytes % (Manual) Monocytes % (Manual) Eosinophils % (Manual) Basophils % (Manual) Nucleated RBC % Seg Neutrophils # Seg Neutrophils # Man Lymphocytes # (Manual) Monocytes # (Manual) Eosinophils # (Manual) PT INR Fibrinogen dRVVT Confirm Interp Factor V Activity POC ABG pH POC ABG pCO2 POC ABG pO2 Sodium Potassium Chloride Carbon Dioxide BUN Creatinine Glucose POC Glucose 119 H 155 H 124 H Lactic Acid Calcium Phosphorus Magnesium Direct Bilirubin AST ALT Alkaline Phosphatase Lactate Dehydrogenase Troponin T C-Reactive Protein Total Protein Albumin Prealbumin Triglycerides Cholesterol LDL Cholesterol Direct HDL Cholesterol Urine pH Urine WBC (Auto) Urine Creatinine Urine Total Protein Fluid Total Protein Vancomycin Trough Rheumatoid Factor Complement C4 Miscellaneous Test Crossmatch 10/19/16 10/19/16 10/19/16 04:00 04:00 05:25 WBC 17.4 H RBC 2.54 L Hgb 7.7 L Hct 23.6 L MCV MCH MCHC RDW 17.3 H Plt Count Lymph % (Auto) [place] % (Auto) Lymph # [place] # [place] # Seg Neutrophils % Seg Neuts % (Manual) Lymphocytes % (Manual) Monocytes % (Manual) Eosinophils % (Manual) Basophils % (Manual) Nucleated RBC % Seg Neutrophils # Seg Neutrophils # Man Lymphocytes # (Manual) Monocytes # (Manual) Eosinophils # (Manual) PT INR Fibrinogen dRVVT Confirm Interp Factor V Activity POC ABG pH POC ABG pCO2 POC ABG pO2 Sodium Potassium Chloride Carbon Dioxide BUN 72 H Creatinine 2.1 H Glucose 116 H POC Glucose 119 H Lactic Acid Calcium Phosphorus Magnesium Direct Bilirubin AST ALT Alkaline Phosphatase Lactate Dehydrogenase Troponin T C-Reactive Protein Total Protein Albumin Prealbumin Triglycerides Cholesterol LDL Cholesterol Direct HDL Cholesterol Urine pH Urine WBC (Auto) Urine Creatinine Urine Total Protein Fluid Total Protein Vancomycin Trough Rheumatoid Factor Complement C4 Miscellaneous Test Crossmatch 10/19/16 10/19/16 10/20/16 11:46 23:59 06:00 WBC RBC Hgb Hct MCV MCH MCHC RDW Plt Count Lymph % (Auto) [place] % (Auto) Lymph # [place] # Baso # Seg Neutrophils % Seg Neuts % (Manual) Lymphocytes % (Manual) Monocytes % (Manual) Eosinophils % (Manual) Basophils % (Manual) Nucleated RBC % Seg Neutrophils # Seg Neutrophils # Man Lymphocytes # (Manual) Monocytes # (Manual) Eosinophils # (Manual) PT INR Fibrinogen dRVVT Confirm Interp Factor V Activity POC ABG pH POC ABG pCO2 POC ABG pO2 Sodium Potassium Chloride Carbon Dioxide 17 L BUN 94 H Creatinine 2.7 H Glucose POC Glucose 116 H 117 H Lactic Acid Calcium Phosphorus Magnesium Direct Bilirubin AST ALT Alkaline Phosphatase Lactate Dehydrogenase Troponin T C-Reactive Protein Total Protein Albumin Prealbumin Triglycerides Cholesterol LDL Cholesterol Direct HDL Cholesterol Urine pH Urine WBC (Auto) Urine Creatinine Urine Total Protein Fluid Total Protein Vancomycin Trough Rheumatoid Factor Complement C4 Miscellaneous Test Crossmatch 10/20/16 10/20/16 10/20/16 06:00 11:49 16:00 WBC 19.7 H RBC 2.51 L Hgb 7.7 L Hct 23.5 L MCV MCH MCHC RDW 17.5 H Plt Count Lymph % (Auto) [place] % (Auto) Lymph # [place] # Baso # Seg Neutrophils % Seg Neuts % (Manual) Lymphocytes % (Manual) Monocytes % (Manual) Eosinophils % (Manual) Basophils % (Manual) Nucleated RBC % Seg Neutrophils # Seg Neutrophils # Man Lymphocytes # (Manual) Monocytes # (Manual) Eosinophils # (Manual) PT INR Fibrinogen dRVVT Confirm Interp Factor V Activity POC ABG pH POC ABG pCO2 POC ABG pO2 Sodium Potassium Chloride Carbon Dioxide BUN Creatinine Glucose POC Glucose 117 H Lactic Acid Calcium Phosphorus Magnesium Direct Bilirubin AST ALT Alkaline Phosphatase Lactate Dehydrogenase Troponin T C-Reactive Protein Total Protein Albumin Prealbumin Triglycerides Cholesterol LDL Cholesterol Direct HDL Cholesterol Urine pH Urine WBC (Auto) Urine Creatinine Urine Total Protein Fluid Total Protein Vancomycin Trough Rheumatoid Factor Complement C4 Miscellaneous Test Flexitest 1 H Crossmatch 10/20/16 10/20/16 10/21/16 18:36 23:39 04:00 WBC RBC Hgb Hct MCV MCH MCHC RDW Plt Count Lymph % (Auto) [place] % (Auto) Lymph # [place] # Baso # Seg Neutrophils % Seg Neuts % (Manual) Lymphocytes % (Manual) Monocytes % (Manual) Eosinophils % (Manual) Basophils % (Manual) Nucleated RBC % Seg Neutrophils # Seg Neutrophils # Man Lymphocytes # (Manual) Monocytes # (Manual) Eosinophils # (Manual) PT INR Fibrinogen dRVVT Confirm Interp Factor V Activity POC ABG pH POC ABG pCO2 POC ABG pO2 Sodium Potassium 5.4 H D Chloride Carbon Dioxide 15 L BUN 110 H Creatinine 3.0 H Glucose POC Glucose 127 H 114 H Lactic Acid Calcium Phosphorus Magnesium Direct Bilirubin AST ALT Alkaline Phosphatase Lactate Dehydrogenase Troponin T C-Reactive Protein Total Protein Albumin Prealbumin Triglycerides Cholesterol LDL Cholesterol Direct HDL Cholesterol Urine pH Urine WBC (Auto) Urine Creatinine Urine Total Protein Fluid Total Protein Vancomycin Trough Rheumatoid Factor Complement C4 Miscellaneous Test Crossmatch 10/21/16 10/21/16 10/22/16 05:54 23:46 05:18 WBC RBC Hgb Hct MCV MCH MCHC RDW Plt Count Lymph % (Auto) [place] % (Auto) Lymph # [place] # Baso # Seg Neutrophils % Seg Neuts % (Manual) Lymphocytes % (Manual) Monocytes % (Manual) Eosinophils % (Manual) Basophils % (Manual) Nucleated RBC % Seg Neutrophils # Seg Neutrophils # Man Lymphocytes # (Manual) Monocytes # (Manual) Eosinophils # (Manual) PT INR Fibrinogen dRVVT Confirm Interp Factor V Activity POC ABG pH POC ABG pCO2 POC ABG pO2 Sodium Potassium Chloride Carbon Dioxide BUN Creatinine Glucose POC Glucose 119 H 108 H 109 H Lactic Acid Calcium Phosphorus Magnesium Direct Bilirubin AST ALT Alkaline Phosphatase Lactate Dehydrogenase Troponin T C-Reactive Protein Total Protein Albumin Prealbumin Triglycerides Cholesterol LDL Cholesterol Direct HDL Cholesterol Urine pH Urine WBC (Auto) Urine Creatinine Urine Total Protein Fluid Total Protein Vancomycin Trough Rheumatoid Factor Complement C4 Miscellaneous Test Crossmatch 10/22/16 10/22/16 10/22/16 06:40 06:40 06:40 WBC 14.0 H RBC 2.03 L Hgb 7.0 L Hct 20.5 L MCV 98 H MCH 34 H MCHC 35 H RDW 17.8 H Plt Count Lymph % (Auto) [place] % (Auto) 9.9 H Lymph # [place] # 1.4 H Baso # 0.2 H Seg Neutrophils % 72.0 H Seg Neuts % (Manual) Lymphocytes % (Manual) Monocytes % (Manual) Eosinophils % (Manual) Basophils % (Manual) Nucleated RBC % Seg Neutrophils # 10.0 H Seg Neutrophils # Man Lymphocytes # (Manual) Monocytes # (Manual) Eosinophils # (Manual) PT INR Fibrinogen dRVVT Confirm Interp Factor V Activity POC ABG pH POC ABG pCO2 POC ABG pO2 Sodium 130 L D Potassium Chloride 92.4 L Carbon Dioxide 20 L BUN 50 H Creatinine 1.6 H Glucose 589 H* POC Glucose Lactic Acid Calcium 7.8 L D Phosphorus Magnesium 1.60 L Direct Bilirubin AST ALT Alkaline Phosphatase Lactate Dehydrogenase Troponin T C-Reactive Protein Total Protein Albumin Prealbumin Triglycerides Cholesterol LDL Cholesterol Direct HDL Cholesterol Urine pH Urine WBC (Auto) Urine Creatinine Urine Total Protein Fluid Total Protein Vancomycin Trough Rheumatoid Factor Complement C4 Miscellaneous Test Crossmatch 10/22/16 10/22/16 10/22/16 11:39 16:44 23:36 WBC RBC Hgb Hct MCV MCH MCHC RDW Plt Count Lymph % (Auto) [place] % (Auto) Lymph # [place] # Baso # Seg Neutrophils % Seg Neuts % (Manual) Lymphocytes % (Manual) Monocytes % (Manual) Eosinophils % (Manual) Basophils % (Manual) Nucleated RBC % Seg Neutrophils # Seg Neutrophils # Man Lymphocytes # (Manual) Monocytes # (Manual) Eosinophils # (Manual) PT INR Fibrinogen dRVVT Confirm Interp Factor V Activity POC ABG pH POC ABG pCO2 POC ABG pO2 Sodium Potassium Chloride Carbon Dioxide BUN Creatinine Glucose POC Glucose 142 H 163 H 123 H Lactic Acid Calcium Phosphorus Magnesium Direct Bilirubin AST ALT Alkaline Phosphatase Lactate Dehydrogenase Troponin T C-Reactive Protein Total Protein Albumin Prealbumin Triglycerides Cholesterol LDL Cholesterol Direct HDL Cholesterol Urine pH Urine WBC (Auto) Urine Creatinine Urine Total Protein Fluid Total Protein Vancomycin Trough Rheumatoid Factor Complement C4 Miscellaneous Test Crossmatch 10/23/16 10/23/16 10/23/16 04:58 06:00 12:12 WBC RBC Hgb Hct MCV MCH MCHC RDW Plt Count Lymph % (Auto) [place] % (Auto) Lymph # [place] # Baso # Seg Neutrophils % Seg Neuts % (Manual) Lymphocytes % (Manual) Monocytes % (Manual) Eosinophils % (Manual) Basophils % (Manual) Nucleated RBC % Seg Neutrophils # Seg Neutrophils # Man Lymphocytes # (Manual) Monocytes # (Manual) Eosinophils # (Manual) PT INR Fibrinogen dRVVT Confirm Interp Factor V Activity POC ABG pH POC ABG pCO2 POC ABG pO2 Sodium 133 L Potassium 3.5 L Chloride 96.1 L Carbon Dioxide 18 L BUN 76 H Creatinine 2.1 H Glucose POC Glucose 133 H 138 H Lactic Acid Calcium 8.3 L Phosphorus Magnesium Direct Bilirubin AST ALT Alkaline Phosphatase Lactate Dehydrogenase Troponin T C-Reactive Protein Total Protein Albumin Prealbumin Triglycerides Cholesterol LDL Cholesterol Direct HDL Cholesterol Urine pH Urine WBC (Auto) Urine Creatinine Urine Total Protein Fluid Total Protein Vancomycin Trough Rheumatoid Factor Complement C4 Miscellaneous Test Crossmatch 10/23/16 10/23/16 10/24/16 16:53 23:37 04:00 WBC RBC Hgb Hct MCV MCH MCHC RDW Plt Count Lymph % (Auto) [place] % (Auto) Lymph # [place] # Baso # Seg Neutrophils % Seg Neuts % (Manual) Lymphocytes % (Manual) Monocytes % (Manual) Eosinophils % (Manual) Basophils % (Manual) Nucleated RBC % Seg Neutrophils # Seg Neutrophils # Man Lymphocytes # (Manual) Monocytes # (Manual) Eosinophils # (Manual) PT INR Fibrinogen dRVVT Confirm Interp Factor V Activity POC ABG pH POC ABG pCO2 POC ABG pO2 Sodium 131 L Potassium Chloride 94.5 L Carbon Dioxide 19 L BUN 97 H Creatinine 2.6 H Glucose 110 H POC Glucose 125 H 123 H Lactic Acid Calcium 8.3 L Phosphorus Magnesium Direct Bilirubin AST ALT Alkaline Phosphatase Lactate Dehydrogenase Troponin T C-Reactive Protein Total Protein Albumin Prealbumin Triglycerides Cholesterol LDL Cholesterol Direct HDL Cholesterol Urine pH Urine WBC (Auto) Urine Creatinine Urine Total Protein Fluid Total Protein Vancomycin Trough Rheumatoid Factor Complement C4 Miscellaneous Test Crossmatch 10/24/16 10/24/16 10/24/16 07:49 11:39 17:52 WBC RBC Hgb 6.0 L Hct 19.7 L* MCV MCH MCHC RDW Plt Count Lymph % (Auto) [place] % (Auto) Lymph # [place] # Baso # Seg Neutrophils % Seg Neuts % (Manual) Lymphocytes % (Manual) Monocytes % (Manual) Eosinophils % (Manual) Basophils % (Manual) Nucleated RBC % Seg Neutrophils # Seg Neutrophils # Man Lymphocytes # (Manual) Monocytes # (Manual) Eosinophils # (Manual) PT INR Fibrinogen dRVVT Confirm Interp Factor V Activity POC ABG pH POC ABG pCO2 POC ABG pO2 Sodium Potassium Chloride Carbon Dioxide BUN Creatinine Glucose POC Glucose 106 H 158 H Lactic Acid Calcium Phosphorus Magnesium Direct Bilirubin AST ALT Alkaline Phosphatase Lactate Dehydrogenase Troponin T C-Reactive Protein Total Protein Albumin Prealbumin Triglycerides Cholesterol LDL Cholesterol Direct HDL Cholesterol Urine pH Urine WBC (Auto) Urine Creatinine Urine Total Protein Fluid Total Protein Vancomycin Trough Rheumatoid Factor Complement C4 Miscellaneous Test Crossmatch 10/24/16 10/24/16 10/24/16 20:00 22:27 Unknown WBC RBC Hgb 9.4 L D Hct 27.5 L D MCV MCH MCHC RDW Plt Count Lymph % (Auto) [place] % (Auto) Lymph # [place] # Baso # Seg Neutrophils % Seg Neuts % (Manual) Lymphocytes % (Manual) Monocytes % (Manual) Eosinophils % (Manual) Basophils % (Manual) Nucleated RBC % Seg Neutrophils # Seg Neutrophils # Man Lymphocytes # (Manual) Monocytes # (Manual) Eosinophils # (Manual) PT INR Fibrinogen dRVVT Confirm Interp Factor V Activity POC ABG pH POC ABG pCO2 POC ABG pO2 Sodium Potassium Chloride Carbon Dioxide BUN Creatinine Glucose POC Glucose 125 H Lactic Acid Calcium Phosphorus Magnesium Direct Bilirubin AST ALT Alkaline Phosphatase Lactate Dehydrogenase Troponin T C-Reactive Protein Total Protein Albumin Prealbumin Triglycerides Cholesterol LDL Cholesterol Direct HDL Cholesterol Urine pH Urine WBC (Auto) Urine Creatinine Urine Total Protein Fluid Total Protein Vancomycin Trough Rheumatoid Factor Complement C4 Miscellaneous Test Crossmatch See Detail 10/25/16 10/25/16 10/25/16 04:00 04:00 04:00 WBC 14.2 H RBC 2.98 L Hgb 9.0 L Hct 26.2 L MCV MCH MCHC RDW 16.6 H Plt Count Lymph % (Auto) [place] % (Auto) 10.7 H Lymph # [place] # 1.5 H Baso # Seg Neutrophils % 73.6 H Seg Neuts % (Manual) Lymphocytes % (Manual) Monocytes % (Manual) Eosinophils % (Manual) Basophils % (Manual) Nucleated RBC % Seg Neutrophils # 10.5 H Seg Neutrophils # Man Lymphocytes # (Manual) Monocytes # (Manual) Eosinophils # (Manual) PT INR Fibrinogen dRVVT Confirm Interp Factor V Activity POC ABG pH POC ABG pCO2 POC ABG pO2 Sodium 132 L Potassium Chloride 94.7 L Carbon Dioxide BUN 51 H Creatinine 1.6 H Glucose 130 H POC Glucose Lactic Acid Calcium 8.3 L Phosphorus 1.60 L D Magnesium Direct Bilirubin AST ALT Alkaline Phosphatase Lactate Dehydrogenase Troponin T C-Reactive Protein Total Protein Albumin Prealbumin Triglycerides Cholesterol LDL Cholesterol Direct HDL Cholesterol Urine pH Urine WBC (Auto) Urine Creatinine Urine Total Protein Fluid Total Protein Vancomycin Trough Rheumatoid Factor Complement C4 Miscellaneous Test Crossmatch 10/25/16 10/25/16 10/25/16 04:32 11:48 17:22 WBC RBC Hgb Hct MCV MCH MCHC RDW Plt Count Lymph % (Auto) [place] % (Auto) Lymph # [place] # Baso # Seg Neutrophils % Seg Neuts % (Manual) Lymphocytes % (Manual) Monocytes % (Manual) Eosinophils % (Manual) Basophils % (Manual) Nucleated RBC % Seg Neutrophils # Seg Neutrophils # Man Lymphocytes # (Manual) Monocytes # (Manual) Eosinophils # (Manual) PT INR Fibrinogen dRVVT Confirm Interp Factor V Activity POC ABG pH POC ABG pCO2 POC ABG pO2 Sodium Potassium Chloride Carbon Dioxide BUN Creatinine Glucose POC Glucose 124 H 171 H 120 H Lactic Acid Calcium Phosphorus Magnesium Direct Bilirubin AST ALT Alkaline Phosphatase Lactate Dehydrogenase Troponin T C-Reactive Protein Total Protein Albumin Prealbumin Triglycerides Cholesterol LDL Cholesterol Direct HDL Cholesterol Urine pH Urine WBC (Auto) Urine Creatinine Urine Total Protein Fluid Total Protein Vancomycin Trough Rheumatoid Factor Complement C4 Miscellaneous Test Crossmatch 10/26/16 10/26/16 10/26/16 04:54 07:06 07:06 WBC 16.9 H RBC 3.06 L Hgb 9.1 L Hct 26.9 L MCV MCH MCHC RDW 16.9 H Plt Count Lymph % (Auto) [place] % (Auto) Lymph # [place] # Baso # Seg Neutrophils % Seg Neuts % (Manual) 71.0 H Lymphocytes % (Manual) 5.0 L Monocytes % (Manual) 12.0 H Eosinophils % (Manual) Basophils % (Manual) Nucleated RBC % Seg Neutrophils # Seg Neutrophils # Man 12.0 H Lymphocytes # (Manual) 0.8 L Monocytes # (Manual) 2.0 H Eosinophils # (Manual) PT INR Fibrinogen dRVVT Confirm Interp Factor V Activity POC ABG pH POC ABG pCO2 POC ABG pO2 Sodium 135 L Potassium Chloride 97.1 L Carbon Dioxide BUN 73 H Creatinine 2.2 H Glucose 117 H POC Glucose 123 H Lactic Acid Calcium Phosphorus 1.70 L Magnesium Direct Bilirubin AST ALT Alkaline Phosphatase Lactate Dehydrogenase Troponin T C-Reactive Protein Total Protein Albumin Prealbumin Triglycerides Cholesterol LDL Cholesterol Direct HDL Cholesterol Urine pH Urine WBC (Auto) Urine Creatinine Urine Total Protein Fluid Total Protein Vancomycin Trough Rheumatoid Factor Complement C4 Miscellaneous Test Crossmatch 10/26/16 10/26/16 10/26/16 12:12 17:29 23:42 WBC RBC Hgb Hct MCV MCH MCHC RDW Plt Count Lymph % (Auto) [place] % (Auto) Lymph # [place] # Baso # Seg Neutrophils % Seg Neuts % (Manual) Lymphocytes % (Manual) Monocytes % (Manual) Eosinophils % (Manual) Basophils % (Manual) Nucleated RBC % Seg Neutrophils # Seg Neutrophils # Man Lymphocytes # (Manual) Monocytes # (Manual) Eosinophils # (Manual) PT INR Fibrinogen dRVVT Confirm Interp Factor V Activity POC ABG pH POC ABG pCO2 POC ABG pO2 Sodium Potassium Chloride Carbon Dioxide BUN Creatinine Glucose POC Glucose 126 H 161 H 118 H Lactic Acid Calcium Phosphorus Magnesium Direct Bilirubin AST ALT Alkaline Phosphatase Lactate Dehydrogenase Troponin T C-Reactive Protein Total Protein Albumin Prealbumin Triglycerides Cholesterol LDL Cholesterol Direct HDL Cholesterol Urine pH Urine WBC (Auto) Urine Creatinine Urine Total Protein Fluid Total Protein Vancomycin Trough Rheumatoid Factor Complement C4 Miscellaneous Test Crossmatch 10/27/16 10/27/16 10/27/16 05:03 06:30 06:30 WBC 13.9 H RBC 3.09 L Hgb 9.2 L Hct 27.5 L MCV MCH MCHC RDW 17.0 H Plt Count Lymph % (Auto) [place] % (Auto) Lymph # [place] # Baso # Seg Neutrophils % Seg Neuts % (Manual) 78.0 H Lymphocytes % (Manual) Monocytes % (Manual) Eosinophils % (Manual) Basophils % (Manual) Nucleated RBC % 2.0 H Seg Neutrophils # Seg Neutrophils # Man 10.8 H Lymphocytes # (Manual) Monocytes # (Manual) 1.0 H Eosinophils # (Manual) PT INR Fibrinogen dRVVT Confirm Interp Factor V Activity POC ABG pH POC ABG pCO2 POC ABG pO2 Sodium Potassium Chloride Carbon Dioxide BUN 40 H Creatinine 1.5 H Glucose 135 H POC Glucose 107 H Lactic Acid Calcium 8.3 L Phosphorus 1.30 L D Magnesium Direct Bilirubin AST ALT Alkaline Phosphatase Lactate Dehydrogenase Troponin T C-Reactive Protein Total Protein Albumin Prealbumin Triglycerides Cholesterol LDL Cholesterol Direct HDL Cholesterol Urine pH Urine WBC (Auto) Urine Creatinine Urine Total Protein Fluid Total Protein Vancomycin Trough Rheumatoid Factor Complement C4 Miscellaneous Test Crossmatch 10/27/16 10/27/16 10/27/16 13:27 18:07 23:40 WBC RBC Hgb Hct MCV MCH MCHC RDW Plt Count Lymph % (Auto) [place] % (Auto) Lymph # [place] # Baso # Seg Neutrophils % Seg Neuts % (Manual) Lymphocytes % (Manual) Monocytes % (Manual) Eosinophils % (Manual) Basophils % (Manual) Nucleated RBC % Seg Neutrophils # Seg Neutrophils # Man Lymphocytes # (Manual) Monocytes # (Manual) Eosinophils # (Manual) PT INR Fibrinogen dRVVT Confirm Interp Factor V Activity POC ABG pH POC ABG pCO2 POC ABG pO2 Sodium Potassium Chloride Carbon Dioxide BUN Creatinine Glucose POC Glucose 117 H 121 H 118 H Lactic Acid Calcium Phosphorus Magnesium Direct Bilirubin AST ALT Alkaline Phosphatase Lactate Dehydrogenase Troponin T C-Reactive Protein Total Protein Albumin Prealbumin Triglycerides Cholesterol LDL Cholesterol Direct HDL Cholesterol Urine pH Urine WBC (Auto) Urine Creatinine Urine Total Protein Fluid Total Protein Vancomycin Trough Rheumatoid Factor Complement C4 Miscellaneous Test Crossmatch 10/28/16 10/28/16 10/28/16 05:48 06:45 06:45 WBC 14.7 H RBC 3.05 L Hgb 9.0 L Hct 26.9 L MCV MCH MCHC RDW 16.8 H Plt Count Lymph % (Auto) 8.2 L [place] % (Auto) 8.4 H Lymph # [place] # 1.2 H Baso # Seg Neutrophils % 81.9 H Seg Neuts % (Manual) Lymphocytes % (Manual) Monocytes % (Manual) Eosinophils % (Manual) Basophils % (Manual) Nucleated RBC % Seg Neutrophils # 12.1 H Seg Neutrophils # Man Lymphocytes # (Manual) Monocytes # (Manual) Eosinophils # (Manual) PT INR Fibrinogen dRVVT Confirm Interp Factor V Activity POC ABG pH POC ABG pCO2 POC ABG pO2 Sodium Potassium Chloride Carbon Dioxide BUN 60 H Creatinine 1.9 H Glucose 120 H POC Glucose 114 H Lactic Acid Calcium Phosphorus Magnesium Direct Bilirubin AST ALT Alkaline Phosphatase Lactate Dehydrogenase Troponin T C-Reactive Protein Total Protein Albumin Prealbumin Triglycerides Cholesterol LDL Cholesterol Direct HDL Cholesterol Urine pH Urine WBC (Auto) Urine Creatinine Urine Total Protein Fluid Total Protein Vancomycin Trough Rheumatoid Factor Complement C4 Miscellaneous Test Crossmatch 10/28/16 10/28/16 10/29/16 17:08 23:50 05:10 WBC RBC Hgb Hct MCV MCH MCHC RDW Plt Count Lymph % (Auto) [place] % (Auto) Lymph # [place] # Baso # Seg Neutrophils % Seg Neuts % (Manual) Lymphocytes % (Manual) Monocytes % (Manual) Eosinophils % (Manual) Basophils % (Manual) Nucleated RBC % Seg Neutrophils # Seg Neutrophils # Man Lymphocytes # (Manual) Monocytes # (Manual) Eosinophils # (Manual) PT INR Fibrinogen dRVVT Confirm Interp Factor V Activity POC ABG pH POC ABG pCO2 POC ABG pO2 Sodium Potassium Chloride Carbon Dioxide BUN Creatinine Glucose POC Glucose 109 H 110 H 124 H Lactic Acid Calcium Phosphorus Magnesium Direct Bilirubin AST ALT Alkaline Phosphatase Lactate Dehydrogenase Troponin T C-Reactive Protein Total Protein Albumin Prealbumin Triglycerides Cholesterol LDL Cholesterol Direct HDL Cholesterol Urine pH Urine WBC (Auto) Urine Creatinine Urine Total Protein Fluid Total Protein Vancomycin Trough Rheumatoid Factor Complement C4 Miscellaneous Test Crossmatch 10/29/16 10/29/16 10/29/16 07:45 07:45 12:19 WBC 14.7 H RBC 3.15 L Hgb 9.3 L Hct 28.9 L MCV MCH MCHC RDW 17.0 H Plt Count Lymph % (Auto) 11.9 L [place] % (Auto) 8.6 H Lymph # [place] # 1.3 H Baso # Seg Neutrophils % 78.1 H Seg Neuts % (Manual) Lymphocytes % (Manual) Monocytes % (Manual) Eosinophils % (Manual) Basophils % (Manual) Nucleated RBC % Seg Neutrophils # 11.4 H Seg Neutrophils # Man Lymphocytes # (Manual) Monocytes # (Manual) Eosinophils # (Manual) PT INR Fibrinogen dRVVT Confirm Interp Factor V Activity POC ABG pH POC ABG pCO2 POC ABG pO2 Sodium Potassium 5.1 H Chloride Carbon Dioxide 19 L BUN 78 H Creatinine 2.2 H Glucose 116 H POC Glucose 118 H Lactic Acid Calcium Phosphorus Magnesium Direct Bilirubin AST ALT Alkaline Phosphatase Lactate Dehydrogenase Troponin T C-Reactive Protein Total Protein Albumin Prealbumin Triglycerides Cholesterol LDL Cholesterol Direct HDL Cholesterol Urine pH Urine WBC (Auto) Urine Creatinine Urine Total Protein Fluid Total Protein Vancomycin Trough Rheumatoid Factor Complement C4 Miscellaneous Test Crossmatch 10/29/16 10/30/16 10/30/16 17:49 01:52 03:28 WBC RBC Hgb Hct MCV MCH MCHC RDW Plt Count Lymph % (Auto) [place] % (Auto) Lymph # [place] # Baso # Seg Neutrophils % Seg Neuts % (Manual) Lymphocytes % (Manual) Monocytes % (Manual) Eosinophils % (Manual) Basophils % (Manual) Nucleated RBC % Seg Neutrophils # Seg Neutrophils # Man Lymphocytes # (Manual) Monocytes # (Manual) Eosinophils # (Manual) PT INR Fibrinogen dRVVT Confirm Interp Factor V Activity POC ABG pH POC ABG pCO2 POC ABG pO2 Sodium Potassium 5.4 H Chloride 97.5 L Carbon Dioxide 19 L BUN 90 H Creatinine 2.5 H Glucose POC Glucose 120 H 129 H Lactic Acid Calcium Phosphorus 5.20 H Magnesium Direct Bilirubin AST ALT Alkaline Phosphatase Lactate Dehydrogenase Troponin T C-Reactive Protein Total Protein Albumin Prealbumin Triglycerides Cholesterol LDL Cholesterol Direct HDL Cholesterol Urine pH Urine WBC (Auto) Urine Creatinine Urine Total Protein Fluid Total Protein Vancomycin Trough Rheumatoid Factor Complement C4 Miscellaneous Test Crossmatch 10/30/16 10/30/16 10/30/16 03:28 08:19 08:19 WBC 11.6 H 15.9 H RBC 2.75 L 2.82 L Hgb 7.9 L 8.3 L Hct 24.2 L 25.2 L MCV MCH MCHC RDW 16.7 H 17.2 H Plt Count Lymph % (Auto) [place] % (Auto) 9.8 H Lymph # [place] # 1.1 H Baso # Seg Neutrophils % 74.2 H Seg Neuts % (Manual) Lymphocytes % (Manual) Monocytes % (Manual) Eosinophils % (Manual) Basophils % (Manual) Nucleated RBC % Seg Neutrophils # 8.6 H Seg Neutrophils # Man Lymphocytes # (Manual) Monocytes # (Manual) Eosinophils # (Manual) PT INR Fibrinogen dRVVT Confirm Interp Factor V Activity POC ABG pH POC ABG pCO2 POC ABG pO2 Sodium Potassium 5.3 H Chloride 97.4 L Carbon Dioxide 19 L BUN 93 H Creatinine 2.6 H Glucose POC Glucose Lactic Acid Calcium Phosphorus Magnesium Direct Bilirubin AST ALT Alkaline Phosphatase Lactate Dehydrogenase Troponin T C-Reactive Protein Total Protein Albumin Prealbumin Triglycerides Cholesterol LDL Cholesterol Direct HDL Cholesterol Urine pH Urine WBC (Auto) Urine Creatinine Urine Total Protein Fluid Total Protein Vancomycin Trough Rheumatoid Factor Complement C4 Miscellaneous Test Crossmatch 10/30/16 10/30/16 10/31/16 17:11 23:56 00:40 WBC RBC Hgb Hct MCV MCH MCHC RDW Plt Count Lymph % (Auto) [place] % (Auto) Lymph # [place] # Baso # Seg Neutrophils % Seg Neuts % (Manual) Lymphocytes % (Manual) Monocytes % (Manual) Eosinophils % (Manual) Basophils % (Manual) Nucleated RBC % Seg Neutrophils # Seg Neutrophils # Man Lymphocytes # (Manual) Monocytes # (Manual) Eosinophils # (Manual) PT INR Fibrinogen dRVVT Confirm Interp Factor V Activity POC ABG pH POC ABG pCO2 POC ABG pO2 Sodium Potassium Chloride Carbon Dioxide BUN Creatinine Glucose POC Glucose 106 H 117 H 120 H Lactic Acid Calcium Phosphorus Magnesium Direct Bilirubin AST ALT Alkaline Phosphatase Lactate Dehydrogenase Troponin T C-Reactive Protein Total Protein Albumin Prealbumin Triglycerides Cholesterol LDL Cholesterol Direct HDL Cholesterol Urine pH Urine WBC (Auto) Urine Creatinine Urine Total Protein Fluid Total Protein Vancomycin Trough Rheumatoid Factor Complement C4 Miscellaneous Test Crossmatch 10/31/16 10/31/16 10/31/16 05:43 07:15 07:15 WBC 12.1 H RBC 2.63 L Hgb 7.7 L Hct 23.3 L MCV MCH MCHC RDW 16.7 H Plt Count Lymph % (Auto) 11.7 L [place] % (Auto) 7.7 H Lymph # [place] # 0.9 H Baso # Seg Neutrophils % 78.0 H Seg Neuts % (Manual) Lymphocytes % (Manual) Monocytes % (Manual) Eosinophils % (Manual) Basophils % (Manual) Nucleated RBC % Seg Neutrophils # 9.4 H Seg Neutrophils # Man Lymphocytes # (Manual) Monocytes # (Manual) Eosinophils # (Manual) PT INR Fibrinogen dRVVT Confirm Interp Factor V Activity POC ABG pH POC ABG pCO2 POC ABG pO2 Sodium Potassium Chloride 96.4 L Carbon Dioxide 21 L BUN 99 H Creatinine 2.6 H Glucose 144 H POC Glucose 125 H Lactic Acid Calcium Phosphorus 4.80 H Magnesium Direct Bilirubin AST ALT Alkaline Phosphatase Lactate Dehydrogenase Troponin T C-Reactive Protein Total Protein Albumin Prealbumin Triglycerides Cholesterol LDL Cholesterol Direct HDL Cholesterol Urine pH Urine WBC (Auto) Urine Creatinine Urine Total Protein Fluid Total Protein Vancomycin Trough Rheumatoid Factor Complement C4 Miscellaneous Test Crossmatch 10/31/16 10/31/16 11/01/16 11:46 18:34 00:20 WBC RBC Hgb Hct MCV MCH MCHC RDW Plt Count Lymph % (Auto) [place] % (Auto) Lymph # [place] # Baso # Seg Neutrophils % Seg Neuts % (Manual) Lymphocytes % (Manual) Monocytes % (Manual) Eosinophils % (Manual) Basophils % (Manual) Nucleated RBC % Seg Neutrophils # Seg Neutrophils # Man Lymphocytes # (Manual) Monocytes # (Manual) Eosinophils # (Manual) PT INR Fibrinogen dRVVT Confirm Interp Factor V Activity POC ABG pH POC ABG pCO2 POC ABG pO2 Sodium Potassium Chloride Carbon Dioxide BUN Creatinine Glucose POC Glucose 159 H 140 H 132 H Lactic Acid Calcium Phosphorus Magnesium Direct Bilirubin AST ALT Alkaline Phosphatase Lactate Dehydrogenase Troponin T C-Reactive Protein Total Protein Albumin Prealbumin Triglycerides Cholesterol LDL Cholesterol Direct HDL Cholesterol Urine pH Urine WBC (Auto) Urine Creatinine Urine Total Protein Fluid Total Protein Vancomycin Trough Rheumatoid Factor Complement C4 Miscellaneous Test Crossmatch 11/01/16 11/01/16 11/01/16 04:55 04:55 06:11 WBC 11.2 H RBC 2.68 L Hgb 7.5 L Hct 23.7 L MCV MCH MCHC RDW 16.1 H Plt Count Lymph % (Auto) [place] % (Auto) 9.8 H Lymph # [place] # 1.1 H Baso # Seg Neutrophils % 70.8 H Seg Neuts % (Manual) Lymphocytes % (Manual) Monocytes % (Manual) Eosinophils % (Manual) Basophils % (Manual) Nucleated RBC % Seg Neutrophils # 7.9 H Seg Neutrophils # Man Lymphocytes # (Manual) Monocytes # (Manual) Eosinophils # (Manual) PT INR Fibrinogen dRVVT Confirm Interp Factor V Activity POC ABG pH POC ABG pCO2 POC ABG pO2 Sodium Potassium 3.3 L D Chloride Carbon Dioxide BUN 61 H Creatinine 1.9 H Glucose 114 H POC Glucose 115 H Lactic Acid Calcium Phosphorus 1.80 L D Magnesium Direct Bilirubin AST ALT Alkaline Phosphatase Lactate Dehydrogenase Troponin T C-Reactive Protein Total Protein Albumin Prealbumin Triglycerides Cholesterol LDL Cholesterol Direct HDL Cholesterol Urine pH Urine WBC (Auto) Urine Creatinine Urine Total Protein Fluid Total Protein Vancomycin Trough Rheumatoid Factor Complement C4 Miscellaneous Test Crossmatch 11/01/16 11/01/16 11/01/16 12:29 18:23 23:58 WBC RBC Hgb Hct MCV MCH MCHC RDW Plt Count Lymph % (Auto) [place] % (Auto) Lymph # [place] # Baso # Seg Neutrophils % Seg Neuts % (Manual) Lymphocytes % (Manual) Monocytes % (Manual) Eosinophils % (Manual) Basophils % (Manual) Nucleated RBC % Seg Neutrophils # Seg Neutrophils # Man Lymphocytes # (Manual) Monocytes # (Manual) Eosinophils # (Manual) PT INR Fibrinogen dRVVT Confirm Interp Factor V Activity POC ABG pH POC ABG pCO2 POC ABG pO2 Sodium Potassium Chloride Carbon Dioxide BUN Creatinine Glucose POC Glucose 142 H 143 H 128 H Lactic Acid Calcium Phosphorus Magnesium Direct Bilirubin AST ALT Alkaline Phosphatase Lactate Dehydrogenase Troponin T C-Reactive Protein Total Protein Albumin Prealbumin Triglycerides Cholesterol LDL Cholesterol Direct HDL Cholesterol Urine pH Urine WBC (Auto) Urine Creatinine Urine Total Protein Fluid Total Protein Vancomycin Trough Rheumatoid Factor Complement C4 Miscellaneous Test Crossmatch 11/02/16 11/02/16 11/02/16 04:16 05:29 11:58 WBC RBC Hgb Hct MCV MCH MCHC RDW Plt Count Lymph % (Auto) [place] % (Auto) Lymph # [place] # Baso # Seg Neutrophils % Seg Neuts % (Manual) Lymphocytes % (Manual) Monocytes % (Manual) Eosinophils % (Manual) Basophils % (Manual) Nucleated RBC % Seg Neutrophils # Seg Neutrophils # Man Lymphocytes # (Manual) Monocytes # (Manual) Eosinophils # (Manual) PT INR Fibrinogen dRVVT Confirm Interp Factor V Activity POC ABG pH POC ABG pCO2 POC ABG pO2 Sodium Potassium 3.1 L Chloride Carbon Dioxide BUN 73 H Creatinine 2.3 H Glucose 112 H POC Glucose 135 H 149 H Lactic Acid Calcium Phosphorus Magnesium Direct Bilirubin AST ALT Alkaline Phosphatase Lactate Dehydrogenase Troponin T C-Reactive Protein Total Protein Albumin Prealbumin Triglycerides Cholesterol LDL Cholesterol Direct HDL Cholesterol Urine pH Urine WBC (Auto) Urine Creatinine Urine Total Protein Fluid Total Protein Vancomycin Trough Rheumatoid Factor Complement C4 Miscellaneous Test Crossmatch 11/02/16 11/02/16 11/03/16 17:42 22:54 06:00 WBC RBC Hgb Hct MCV MCH MCHC RDW Plt Count Lymph % (Auto) [place] % (Auto) Lymph # [place] # Baso # Seg Neutrophils % Seg Neuts % (Manual) Lymphocytes % (Manual) Monocytes % (Manual) Eosinophils % (Manual) Basophils % (Manual) Nucleated RBC % Seg Neutrophils # Seg Neutrophils # Man Lymphocytes # (Manual) Monocytes # (Manual) Eosinophils # (Manual) PT INR Fibrinogen dRVVT Confirm Interp Factor V Activity POC ABG pH POC ABG pCO2 POC ABG pO2 Sodium Potassium Chloride 96.7 L Carbon Dioxide BUN 41 H Creatinine 1.5 H Glucose 145 H POC Glucose 182 H 115 H Lactic Acid Calcium Phosphorus 1.60 L D Magnesium 1.50 L Direct Bilirubin AST ALT Alkaline Phosphatase Lactate Dehydrogenase Troponin T C-Reactive Protein Total Protein Albumin Prealbumin Triglycerides Cholesterol LDL Cholesterol Direct HDL Cholesterol Urine pH Urine WBC (Auto) Urine Creatinine Urine Total Protein Fluid Total Protein Vancomycin Trough Rheumatoid Factor Complement C4 Miscellaneous Test Crossmatch 11/03/16 11/03/16 11/03/16 11:53 17:45 23:37 WBC RBC Hgb Hct MCV MCH MCHC RDW Plt Count Lymph % (Auto) [place] % (Auto) Lymph # [place] # Baso # Seg Neutrophils % Seg Neuts % (Manual) Lymphocytes % (Manual) Monocytes % (Manual) Eosinophils % (Manual) Basophils % (Manual) Nucleated RBC % Seg Neutrophils # Seg Neutrophils # Man Lymphocytes # (Manual) Monocytes # (Manual) Eosinophils # (Manual) PT INR Fibrinogen dRVVT Confirm Interp Factor V Activity POC ABG pH POC ABG pCO2 POC ABG pO2 Sodium Potassium Chloride Carbon Dioxide BUN Creatinine Glucose POC Glucose 131 H 134 H 113 H Lactic Acid Calcium Phosphorus Magnesium Direct Bilirubin AST ALT Alkaline Phosphatase Lactate Dehydrogenase Troponin T C-Reactive Protein Total Protein Albumin Prealbumin Triglycerides Cholesterol LDL Cholesterol Direct HDL Cholesterol Urine pH Urine WBC (Auto) Urine Creatinine Urine Total Protein Fluid Total Protein Vancomycin Trough Rheumatoid Factor Complement C4 Miscellaneous Test Crossmatch 11/04/16 11/04/16 11/04/16 05:41 06:00 12:10 WBC RBC Hgb Hct MCV MCH MCHC RDW Plt Count Lymph % (Auto) [place] % (Auto) Lymph # [place] # Baso # Seg Neutrophils % Seg Neuts % (Manual) Lymphocytes % (Manual) Monocytes % (Manual) Eosinophils % (Manual) Basophils % (Manual) Nucleated RBC % Seg Neutrophils # Seg Neutrophils # Man Lymphocytes # (Manual) Monocytes # (Manual) Eosinophils # (Manual) PT INR Fibrinogen dRVVT Confirm Interp Factor V Activity POC ABG pH POC ABG pCO2 POC ABG pO2 Sodium Potassium Chloride 96.7 L Carbon Dioxide BUN 52 H Creatinine 1.9 H Glucose 126 H POC Glucose 137 H 191 H Lactic Acid Calcium Phosphorus Magnesium Direct Bilirubin AST ALT Alkaline Phosphatase Lactate Dehydrogenase Troponin T C-Reactive Protein Total Protein Albumin Prealbumin Triglycerides Cholesterol LDL Cholesterol Direct HDL Cholesterol Urine pH Urine WBC (Auto) Urine Creatinine Urine Total Protein Fluid Total Protein Vancomycin Trough Rheumatoid Factor Complement C4 Miscellaneous Test Crossmatch 11/04/16 11/05/16 11/05/16 22:57 03:10 05:10 WBC RBC Hgb Hct MCV MCH MCHC RDW Plt Count Lymph % (Auto) [place] % (Auto) Lymph # [place] # Baso # Seg Neutrophils % Seg Neuts % (Manual) Lymphocytes % (Manual) Monocytes % (Manual) Eosinophils % (Manual) Basophils % (Manual) Nucleated RBC % Seg Neutrophils # Seg Neutrophils # Man Lymphocytes # (Manual) Monocytes # (Manual) Eosinophils # (Manual) PT INR Fibrinogen dRVVT Confirm Interp Factor V Activity POC ABG pH POC ABG pCO2 POC ABG pO2 Sodium 136 L Potassium Chloride 97.2 L Carbon Dioxide BUN 32 H Creatinine 1.3 H Glucose 123 H POC Glucose 125 H 108 H Lactic Acid Calcium 7.8 L Phosphorus Magnesium Direct Bilirubin AST ALT Alkaline Phosphatase Lactate Dehydrogenase Troponin T C-Reactive Protein Total Protein Albumin Prealbumin Triglycerides Cholesterol LDL Cholesterol Direct HDL Cholesterol Urine pH Urine WBC (Auto) Urine Creatinine Urine Total Protein Fluid Total Protein Vancomycin Trough Rheumatoid Factor Complement C4 Miscellaneous Test Crossmatch 11/05/16 11/05/16 11/05/16 12:23 13:09 13:25 WBC RBC Hgb Hct MCV MCH MCHC RDW Plt Count Lymph % (Auto) [place] % (Auto) Lymph # [place] # Baso # Seg Neutrophils % Seg Neuts % (Manual) Lymphocytes % (Manual) Monocytes % (Manual) Eosinophils % (Manual) Basophils % (Manual) Nucleated RBC % Seg Neutrophils # Seg Neutrophils # Man Lymphocytes # (Manual) Monocytes # (Manual) Eosinophils # (Manual) PT INR Fibrinogen dRVVT Confirm Interp Factor V Activity POC ABG pH POC ABG pCO2 POC ABG pO2 Sodium Potassium Chloride Carbon Dioxide BUN Creatinine Glucose POC Glucose 124 H Lactic Acid Calcium Phosphorus Magnesium Direct Bilirubin AST ALT Alkaline Phosphatase Lactate Dehydrogenase Troponin T C-Reactive Protein 11.40 H Total Protein Albumin Prealbumin Triglycerides Cholesterol LDL Cholesterol Direct HDL Cholesterol Urine pH 9.0 H Urine WBC (Auto) Urine Creatinine Urine Total Protein Fluid Total Protein Vancomycin Trough Rheumatoid Factor Complement C4 Miscellaneous Test Crossmatch 11/05/16 11/05/16 11/05/16 13:25 17:54 23:42 WBC RBC Hgb Hct MCV MCH MCHC RDW Plt Count Lymph % (Auto) [place] % (Auto) Lymph # [place] # Baso # Seg Neutrophils % Seg Neuts % (Manual) Lymphocytes % (Manual) Monocytes % (Manual) Eosinophils % (Manual) Basophils % (Manual) Nucleated RBC % Seg Neutrophils # Seg Neutrophils # Man Lymphocytes # (Manual) Monocytes # (Manual) Eosinophils # (Manual) PT INR Fibrinogen dRVVT Confirm Interp Factor V Activity POC ABG pH POC ABG pCO2 POC ABG pO2 Sodium Potassium Chloride Carbon Dioxide BUN Creatinine Glucose POC Glucose 114 H 134 H Lactic Acid Calcium Phosphorus Magnesium Direct Bilirubin AST ALT Alkaline Phosphatase Lactate Dehydrogenase Troponin T C-Reactive Protein Total Protein Albumin Prealbumin Triglycerides Cholesterol LDL Cholesterol Direct HDL Cholesterol Urine pH Urine WBC (Auto) Urine Creatinine Urine Total Protein Fluid Total Protein Vancomycin Trough Rheumatoid Factor Complement C4 Miscellaneous Test Flexitest 1 H Crossmatch 11/06/16 11/06/16 11/06/16 04:56 06:25 06:25 WBC RBC 2.50 L Hgb 7.3 L Hct 22.5 L MCV MCH MCHC RDW 16.9 H Plt Count Lymph % (Auto) [place] % (Auto) 10.5 H Lymph # [place] # 1.1 H Baso # Seg Neutrophils % Seg Neuts % (Manual) Lymphocytes % (Manual) Monocytes % (Manual) Eosinophils % (Manual) Basophils % (Manual) Nucleated RBC % Seg Neutrophils # Seg Neutrophils # Man Lymphocytes # (Manual) Monocytes # (Manual) Eosinophils # (Manual) PT INR Fibrinogen dRVVT Confirm Interp Factor V Activity POC ABG pH POC ABG pCO2 POC ABG pO2 Sodium Potassium 5.1 H Chloride 95.9 L Carbon Dioxide BUN 52 H Creatinine 1.8 H Glucose 117 H POC Glucose 120 H Lactic Acid Calcium Phosphorus Magnesium Direct Bilirubin AST 103 H ALT 77 H Alkaline Phosphatase 285 H Lactate Dehydrogenase Troponin T C-Reactive Protein Total Protein 6.2 L Albumin 1.8 L Prealbumin 0.180 L Triglycerides Cholesterol LDL Cholesterol Direct HDL Cholesterol Urine pH Urine WBC (Auto) Urine Creatinine Urine Total Protein Fluid Total Protein Vancomycin Trough Rheumatoid Factor Complement C4 Miscellaneous Test Crossmatch 11/06/16 11/06/16 11/06/16 11:56 17:14 23:52 WBC RBC Hgb Hct MCV MCH MCHC RDW Plt Count Lymph % (Auto) [place] % (Auto) Lymph # [place] # Baso # Seg Neutrophils % Seg Neuts % (Manual) Lymphocytes % (Manual) Monocytes % (Manual) Eosinophils % (Manual) Basophils % (Manual) Nucleated RBC % Seg Neutrophils # Seg Neutrophils # Man Lymphocytes # (Manual) Monocytes # (Manual) Eosinophils # (Manual) PT INR Fibrinogen dRVVT Confirm Interp Factor V Activity POC ABG pH POC ABG pCO2 POC ABG pO2 Sodium Potassium Chloride Carbon Dioxide BUN Creatinine Glucose POC Glucose 141 H 125 H 130 H Lactic Acid Calcium Phosphorus Magnesium Direct Bilirubin AST ALT Alkaline Phosphatase Lactate Dehydrogenase Troponin T C-Reactive Protein Total Protein Albumin Prealbumin Triglycerides Cholesterol LDL Cholesterol Direct HDL Cholesterol Urine pH Urine WBC (Auto) Urine Creatinine Urine Total Protein Fluid Total Protein Vancomycin Trough Rheumatoid Factor Complement C4 Miscellaneous Test Crossmatch 11/07/16 11/07/16 11/07/16 06:30 06:30 09:37 WBC RBC 2.18 L Hgb 6.3 L Hct 19.7 L* MCV MCH MCHC RDW 16.8 H Plt Count Lymph % (Auto) [place] % (Auto) 10.0 H Lymph # [place] # 1.0 H Baso # Seg Neutrophils % Seg Neuts % (Manual) Lymphocytes % (Manual) Monocytes % (Manual) Eosinophils % (Manual) Basophils % (Manual) Nucleated RBC % Seg Neutrophils # Seg Neutrophils # Man Lymphocytes # (Manual) Monocytes # (Manual) Eosinophils # (Manual) PT INR Fibrinogen dRVVT Confirm Interp Factor V Activity POC ABG pH POC ABG pCO2 POC ABG pO2 Sodium 135 L Potassium Chloride 95.6 L Carbon Dioxide BUN 70 H Creatinine 2.0 H Glucose 126 H POC Glucose Lactic Acid Calcium Phosphorus Magnesium Direct Bilirubin AST ALT Alkaline Phosphatase Lactate Dehydrogenase Troponin T C-Reactive Protein Total Protein Albumin Prealbumin Triglycerides Cholesterol LDL Cholesterol Direct HDL Cholesterol Urine pH Urine WBC (Auto) Urine Creatinine Urine Total Protein Fluid Total Protein Vancomycin Trough Rheumatoid Factor Complement C4 Miscellaneous Test Crossmatch See Detail 11/07/16 11/07/16 11/07/16 12:52 18:51 21:26 WBC RBC Hgb Hct MCV MCH MCHC RDW Plt Count Lymph % (Auto) [place] % (Auto) Lymph # [place] # Baso # Seg Neutrophils % Seg Neuts % (Manual) Lymphocytes % (Manual) Monocytes % (Manual) Eosinophils % (Manual) Basophils % (Manual) Nucleated RBC % Seg Neutrophils # Seg Neutrophils # Man Lymphocytes # (Manual) Monocytes # (Manual) Eosinophils # (Manual) PT INR Fibrinogen dRVVT Confirm Interp Factor V Activity POC ABG pH 7.523 H POC ABG pCO2 34.6 L POC ABG pO2 53 L Sodium Potassium Chloride Carbon Dioxide BUN Creatinine Glucose POC Glucose 142 H 155 H Lactic Acid Calcium Phosphorus Magnesium Direct Bilirubin AST ALT Alkaline Phosphatase Lactate Dehydrogenase Troponin T C-Reactive Protein Total Protein Albumin Prealbumin Triglycerides Cholesterol LDL Cholesterol Direct HDL Cholesterol Urine pH Urine WBC (Auto) Urine Creatinine Urine Total Protein Fluid Total Protein Vancomycin Trough Rheumatoid Factor Complement C4 Miscellaneous Test Crossmatch 11/07/16 11/08/16 11/08/16 21:34 13:03 23:37 WBC RBC 2.63 L Hgb 7.7 L Hct 22.7 L MCV MCH MCHC RDW 17.0 H Plt Count Lymph % (Auto) [place] % (Auto) Lymph # [place] # Baso # Seg Neutrophils % Seg Neuts % (Manual) Lymphocytes % (Manual) Monocytes % (Manual) Eosinophils % (Manual) Basophils % (Manual) Nucleated RBC % Seg Neutrophils # Seg Neutrophils # Man Lymphocytes # (Manual) Monocytes # (Manual) Eosinophils # (Manual) PT INR Fibrinogen dRVVT Confirm Interp Factor V Activity POC ABG pH 7.478 H POC ABG pCO2 34.0 L POC ABG pO2 50 L Sodium Potassium Chloride Carbon Dioxide BUN Creatinine Glucose POC Glucose 113 H Lactic Acid Calcium Phosphorus Magnesium Direct Bilirubin AST ALT Alkaline Phosphatase Lactate Dehydrogenase Troponin T C-Reactive Protein Total Protein Albumin Prealbumin Triglycerides Cholesterol LDL Cholesterol Direct HDL Cholesterol Urine pH Urine WBC (Auto) Urine Creatinine Urine Total Protein Fluid Total Protein Vancomycin Trough Rheumatoid Factor Complement C4 Miscellaneous Test Crossmatch 11/09/16 11/09/16 11/09/16 04:35 10:15 18:21 WBC RBC 2.68 L Hgb 7.8 L Hct 23.3 L MCV MCH MCHC RDW 17.0 H Plt Count Lymph % (Auto) [place] % (Auto) 12.1 H Lymph # [place] # 1.1 H Baso # Seg Neutrophils % Seg Neuts % (Manual) Lymphocytes % (Manual) Monocytes % (Manual) Eosinophils % (Manual) Basophils % (Manual) Nucleated RBC % Seg Neutrophils # Seg Neutrophils # Man Lymphocytes # (Manual) Monocytes # (Manual) Eosinophils # (Manual) PT INR Fibrinogen dRVVT Confirm Interp Factor V Activity POC ABG pH POC ABG pCO2 POC ABG pO2 Sodium Potassium Chloride Carbon Dioxide BUN 51 H Creatinine 1.8 H Glucose POC Glucose 60 L Lactic Acid Calcium 8.3 L Phosphorus Magnesium Direct Bilirubin AST ALT Alkaline Phosphatase Lactate Dehydrogenase Troponin T C-Reactive Protein Total Protein Albumin Prealbumin Triglycerides Cholesterol LDL Cholesterol Direct HDL Cholesterol Urine pH Urine WBC (Auto) Urine Creatinine Urine Total Protein Fluid Total Protein Vancomycin Trough Rheumatoid Factor Complement C4 Miscellaneous Test Crossmatch 11/09/16 11/10/16 11/10/16 18:55 07:00 11:51 WBC RBC Hgb Hct MCV MCH MCHC RDW Plt Count Lymph % (Auto) [place] % (Auto) Lymph # [place] # Baso # Seg Neutrophils % Seg Neuts % (Manual) Lymphocytes % (Manual) Monocytes % (Manual) Eosinophils % (Manual) Basophils % (Manual) Nucleated RBC % Seg Neutrophils # Seg Neutrophils # Man Lymphocytes # (Manual) Monocytes # (Manual) Eosinophils # (Manual) PT INR Fibrinogen dRVVT Confirm Interp Factor V Activity POC ABG pH POC ABG pCO2 POC ABG pO2 Sodium Potassium 3.0 L D Chloride 97.4 L Carbon Dioxide BUN 28 H Creatinine 1.3 H Glucose POC Glucose 68 L 120 H Lactic Acid Calcium 7.8 L Phosphorus Magnesium Direct Bilirubin AST ALT Alkaline Phosphatase Lactate Dehydrogenase Troponin T C-Reactive Protein Total Protein Albumin Prealbumin Triglycerides Cholesterol LDL Cholesterol Direct HDL Cholesterol Urine pH Urine WBC (Auto) Urine Creatinine Urine Total Protein Fluid Total Protein Vancomycin Trough Rheumatoid Factor Complement C4 Miscellaneous Test Crossmatch 11/10/16 11/11/16 11/11/16 14:20 06:59 06:59 WBC RBC 2.81 L Hgb 8.1 L Hct 24.4 L MCV MCH MCHC RDW 16.4 H Plt Count Lymph % (Auto) [place] % (Auto) 10.8 H Lymph # [place] # 1.0 H Baso # Seg Neutrophils % Seg Neuts % (Manual) Lymphocytes % (Manual) Monocytes % (Manual) Eosinophils % (Manual) Basophils % (Manual) Nucleated RBC % Seg Neutrophils # Seg Neutrophils # Man Lymphocytes # (Manual) Monocytes # (Manual) Eosinophils # (Manual) PT INR Fibrinogen dRVVT Confirm Interp Factor V Activity POC ABG pH POC ABG pCO2 POC ABG pO2 Sodium Potassium Chloride Carbon Dioxide BUN Creatinine Glucose POC Glucose Lactic Acid Calcium Phosphorus Magnesium Direct Bilirubin AST ALT Alkaline Phosphatase Lactate Dehydrogenase 196 H Troponin T C-Reactive Protein Total Protein 6.1 L Albumin Prealbumin Triglycerides Cholesterol LDL Cholesterol Direct HDL Cholesterol Urine pH Urine WBC (Auto) Urine Creatinine Urine Total Protein Fluid Total Protein < 3.0 L Vancomycin Trough Rheumatoid Factor Complement C4 Miscellaneous Test Crossmatch 11/11/16 11/11/16 11/12/16 06:59 09:50 04:00 WBC RBC Hgb Hct MCV MCH MCHC RDW Plt Count Lymph % (Auto) [place] % (Auto) Lymph # [place] # Baso # Seg Neutrophils % Seg Neuts % (Manual) Lymphocytes % (Manual) Monocytes % (Manual) Eosinophils % (Manual) Basophils % (Manual) Nucleated RBC % Seg Neutrophils # Seg Neutrophils # Man Lymphocytes # (Manual) Monocytes # (Manual) Eosinophils # (Manual) PT INR 1.18 H Fibrinogen dRVVT Confirm Interp Factor V Activity POC ABG pH POC ABG pCO2 POC ABG pO2 Sodium 136 L 133 L Potassium Chloride 96.1 L 94.8 L Carbon Dioxide 21 L BUN 37 H 42 H Creatinine 1.8 H 2.0 H Glucose POC Glucose Lactic Acid Calcium Phosphorus Magnesium Direct Bilirubin AST ALT Alkaline Phosphatase Lactate Dehydrogenase Troponin T C-Reactive Protein Total Protein Albumin Prealbumin Triglycerides Cholesterol LDL Cholesterol Direct HDL Cholesterol Urine pH Urine WBC (Auto) Urine Creatinine Urine Total Protein Fluid Total Protein Vancomycin Trough Rheumatoid Factor Complement C4 Miscellaneous Test Crossmatch 11/12/16 11/12/16 11/13/16 04:00 23:55 05:53 WBC RBC Hgb 8.9 L Hct 27.2 L MCV MCH MCHC RDW Plt Count Lymph % (Auto) [place] % (Auto) Lymph # [place] # Baso # Seg Neutrophils % Seg Neuts % (Manual) Lymphocytes % (Manual) Monocytes % (Manual) Eosinophils % (Manual) Basophils % (Manual) Nucleated RBC % Seg Neutrophils # Seg Neutrophils # Man Lymphocytes # (Manual) Monocytes # (Manual) Eosinophils # (Manual) PT INR Fibrinogen dRVVT Confirm Interp Factor V Activity POC ABG pH POC ABG pCO2 POC ABG pO2 Sodium Potassium Chloride Carbon Dioxide BUN Creatinine Glucose POC Glucose 132 H 120 H Lactic Acid Calcium Phosphorus Magnesium Direct Bilirubin AST ALT Alkaline Phosphatase Lactate Dehydrogenase Troponin T C-Reactive Protein Total Protein Albumin Prealbumin Triglycerides Cholesterol LDL Cholesterol Direct HDL Cholesterol Urine pH Urine WBC (Auto) Urine Creatinine Urine Total Protein Fluid Total Protein Vancomycin Trough Rheumatoid Factor Complement C4 Miscellaneous Test Crossmatch 11/13/16 11/13/16 11/13/16 11:43 17:09 23:41 WBC RBC Hgb Hct MCV MCH MCHC RDW Plt Count Lymph % (Auto) [place] % (Auto) Lymph # [place] # Baso # Seg Neutrophils % Seg Neuts % (Manual) Lymphocytes % (Manual) Monocytes % (Manual) Eosinophils % (Manual) Basophils % (Manual) Nucleated RBC % Seg Neutrophils # Seg Neutrophils # Man Lymphocytes # (Manual) Monocytes # (Manual) Eosinophils # (Manual) PT INR Fibrinogen dRVVT Confirm Interp Factor V Activity POC ABG pH POC ABG pCO2 POC ABG pO2 Sodium Potassium Chloride Carbon Dioxide BUN Creatinine Glucose POC Glucose 114 H 113 H 108 H Lactic Acid Calcium Phosphorus Magnesium Direct Bilirubin AST ALT Alkaline Phosphatase Lactate Dehydrogenase Troponin T C-Reactive Protein Total Protein Albumin Prealbumin Triglycerides Cholesterol LDL Cholesterol Direct HDL Cholesterol Urine pH Urine WBC (Auto) Urine Creatinine Urine Total Protein Fluid Total Protein Vancomycin Trough Rheumatoid Factor Complement C4 Miscellaneous Test Crossmatch 11/13/16 11/15/16 11/15/16 Unknown 00:37 03:30 WBC 11.2 H RBC 2.72 L Hgb 7.6 L Hct 23.4 L MCV MCH MCHC RDW 16.5 H Plt Count Lymph % (Auto) [place] % (Auto) Lymph # [place] # Baso # Seg Neutrophils % Seg Neuts % (Manual) Lymphocytes % (Manual) Monocytes % (Manual) Eosinophils % (Manual) Basophils % (Manual) Nucleated RBC % Seg Neutrophils # Seg Neutrophils # Man Lymphocytes # (Manual) Monocytes # (Manual) Eosinophils # (Manual) PT INR Fibrinogen dRVVT Confirm Interp Factor V Activity POC ABG pH POC ABG pCO2 POC ABG pO2 Sodium 135 L Potassium Chloride 95.2 L Carbon Dioxide BUN 52 H Creatinine 2.2 H Glucose POC Glucose 108 H Lactic Acid Calcium Phosphorus Magnesium Direct Bilirubin AST ALT Alkaline Phosphatase Lactate Dehydrogenase Troponin T C-Reactive Protein Total Protein Albumin Prealbumin Triglycerides Cholesterol LDL Cholesterol Direct HDL Cholesterol Urine pH Urine WBC (Auto) Urine Creatinine Urine Total Protein Fluid Total Protein Vancomycin Trough Rheumatoid Factor Complement C4 Miscellaneous Test Crossmatch 11/15/16 11/15/16 11/15/16 03:30 05:04 11:50 WBC RBC Hgb Hct MCV MCH MCHC RDW Plt Count Lymph % (Auto) [place] % (Auto) Lymph # [place] # [place] # Seg Neutrophils % Seg Neuts % (Manual) Lymphocytes % (Manual) Monocytes % (Manual) Eosinophils % (Manual) Basophils % (Manual) Nucleated RBC % Seg Neutrophils # Seg Neutrophils # Man Lymphocytes # (Manual) Monocytes # (Manual) Eosinophils # (Manual) PT INR Fibrinogen dRVVT Confirm Interp Factor V Activity POC ABG pH POC ABG pCO2 POC ABG pO2 Sodium Potassium 3.4 L Chloride Carbon Dioxide BUN 25 H Creatinine 1.5 H Glucose 103 H POC Glucose 121 H 144 H Lactic Acid Calcium Phosphorus Magnesium Direct Bilirubin AST ALT Alkaline Phosphatase Lactate Dehydrogenase Troponin T C-Reactive Protein Total Protein Albumin Prealbumin Triglycerides Cholesterol LDL Cholesterol Direct HDL Cholesterol Urine pH Urine WBC (Auto) Urine Creatinine Urine Total Protein Fluid Total Protein Vancomycin Trough Rheumatoid Factor Complement C4 Miscellaneous Test Crossmatch 11/15/16 11/15/16 11/16/16 21:28 23:20 11:44 WBC RBC Hgb Hct MCV MCH MCHC RDW Plt Count Lymph % (Auto) [place] % (Auto) Lymph # [place] # Baso # Seg Neutrophils % Seg Neuts % (Manual) Lymphocytes % (Manual) Monocytes % (Manual) Eosinophils % (Manual) Basophils % (Manual) Nucleated RBC % Seg Neutrophils # Seg Neutrophils # Man Lymphocytes # (Manual) Monocytes # (Manual) Eosinophils # (Manual) PT INR Fibrinogen dRVVT Confirm Interp Factor V Activity POC ABG pH 7.462 H POC ABG pCO2 POC ABG pO2 71 L Sodium Potassium Chloride Carbon Dioxide BUN Creatinine Glucose POC Glucose 116 H 133 H Lactic Acid Calcium Phosphorus Magnesium Direct Bilirubin AST ALT Alkaline Phosphatase Lactate Dehydrogenase Troponin T C-Reactive Protein Total Protein Albumin Prealbumin Triglycerides Cholesterol LDL Cholesterol Direct HDL Cholesterol Urine pH Urine WBC (Auto) Urine Creatinine Urine Total Protein Fluid Total Protein Vancomycin Trough Rheumatoid Factor Complement C4 Miscellaneous Test Crossmatch 11/16/16 11/16/16 11/16/16 12:20 17:05 23:35 WBC 11.7 H RBC 2.73 L Hgb 7.6 L Hct 23.7 L MCV MCH MCHC RDW 16.6 H Plt Count Lymph % (Auto) [place] % (Auto) Lymph # [place] # Baso # Seg Neutrophils % Seg Neuts % (Manual) Lymphocytes % (Manual) Monocytes % (Manual) Eosinophils % (Manual) Basophils % (Manual) Nucleated RBC % Seg Neutrophils # Seg Neutrophils # Man Lymphocytes # (Manual) Monocytes # (Manual) Eosinophils # (Manual) PT INR Fibrinogen dRVVT Confirm Interp Factor V Activity POC ABG pH POC ABG pCO2 POC ABG pO2 Sodium Potassium Chloride Carbon Dioxide BUN Creatinine Glucose POC Glucose 154 H 125 H Lactic Acid Calcium Phosphorus Magnesium Direct Bilirubin AST ALT Alkaline Phosphatase Lactate Dehydrogenase Troponin T C-Reactive Protein Total Protein Albumin Prealbumin Triglycerides Cholesterol LDL Cholesterol Direct HDL Cholesterol Urine pH Urine WBC (Auto) Urine Creatinine Urine Total Protein Fluid Total Protein Vancomycin Trough Rheumatoid Factor Complement C4 Miscellaneous Test Crossmatch 11/17/16 11/17/16 11/17/16 03:20 03:20 03:20 WBC RBC 2.55 L Hgb 7.3 L Hct 21.9 L MCV MCH MCHC RDW 16.6 H Plt Count Lymph % (Auto) [place] % (Auto) 11.5 H Lymph # [place] # 1.1 H Baso # Seg Neutrophils % Seg Neuts % (Manual) Lymphocytes % (Manual) Monocytes % (Manual) Eosinophils % (Manual) Basophils % (Manual) Nucleated RBC % Seg Neutrophils # Seg Neutrophils # Man Lymphocytes # (Manual) Monocytes # (Manual) Eosinophils # (Manual) PT 16.8 H INR 1.37 H Fibrinogen dRVVT Confirm Interp Factor V Activity POC ABG pH POC ABG pCO2 POC ABG pO2 Sodium Potassium 3.5 L Chloride Carbon Dioxide BUN 21 H Creatinine Glucose POC Glucose Lactic Acid Calcium 7.9 L Phosphorus Magnesium Direct Bilirubin AST ALT Alkaline Phosphatase Lactate Dehydrogenase Troponin T C-Reactive Protein Total Protein Albumin Prealbumin Triglycerides Cholesterol LDL Cholesterol Direct HDL Cholesterol Urine pH Urine WBC (Auto) Urine Creatinine Urine Total Protein Fluid Total Protein Vancomycin Trough Rheumatoid Factor Complement C4 Miscellaneous Test Crossmatch 11/17/16 11/17/16 11/17/16 06:34 11:21 21:22 WBC RBC Hgb Hct MCV MCH MCHC RDW Plt Count Lymph % (Auto) [place] % (Auto) Lymph # [place] # Baso # Seg Neutrophils % Seg Neuts % (Manual) Lymphocytes % (Manual) Monocytes % (Manual) Eosinophils % (Manual) Basophils % (Manual) Nucleated RBC % Seg Neutrophils # Seg Neutrophils # Man Lymphocytes # (Manual) Monocytes # (Manual) Eosinophils # (Manual) PT INR Fibrinogen dRVVT Confirm Interp Factor V Activity POC ABG pH 7.467 H POC ABG pCO2 POC ABG pO2 73 L Sodium Potassium Chloride Carbon Dioxide BUN Creatinine Glucose POC Glucose 121 H 119 H Lactic Acid Calcium Phosphorus Magnesium Direct Bilirubin AST ALT Alkaline Phosphatase Lactate Dehydrogenase Troponin T C-Reactive Protein Total Protein Albumin Prealbumin Triglycerides Cholesterol LDL Cholesterol Direct HDL Cholesterol Urine pH Urine WBC (Auto) Urine Creatinine Urine Total Protein Fluid Total Protein Vancomycin Trough Rheumatoid Factor Complement C4 Miscellaneous Test Crossmatch 11/18/16 11/18/16 11/19/16 12:16 17:19 00:00 WBC RBC Hgb Hct MCV MCH MCHC RDW Plt Count Lymph % (Auto) [place] % (Auto) Lymph # [place] # Baso # Seg Neutrophils % Seg Neuts % (Manual) Lymphocytes % (Manual) Monocytes % (Manual) Eosinophils % (Manual) Basophils % (Manual) Nucleated RBC % Seg Neutrophils # Seg Neutrophils # Man Lymphocytes # (Manual) Monocytes # (Manual) Eosinophils # (Manual) PT INR Fibrinogen dRVVT Confirm Interp Factor V Activity POC ABG pH POC ABG pCO2 POC ABG pO2 Sodium Potassium Chloride Carbon Dioxide BUN Creatinine Glucose POC Glucose 124 H 162 H 139 H Lactic Acid Calcium Phosphorus Magnesium Direct Bilirubin AST ALT Alkaline Phosphatase Lactate Dehydrogenase Troponin T C-Reactive Protein Total Protein Albumin Prealbumin Triglycerides Cholesterol LDL Cholesterol Direct HDL Cholesterol Urine pH Urine WBC (Auto) Urine Creatinine Urine Total Protein Fluid Total Protein Vancomycin Trough Rheumatoid Factor Complement C4 Miscellaneous Test Crossmatch 11/19/16 11/19/16 11/20/16 05:00 12:43 00:40 WBC RBC Hgb Hct MCV MCH MCHC RDW Plt Count Lymph % (Auto) [place] % (Auto) Lymph # [place] # Baso # Seg Neutrophils % Seg Neuts % (Manual) Lymphocytes % (Manual) Monocytes % (Manual) Eosinophils % (Manual) Basophils % (Manual) Nucleated RBC % Seg Neutrophils # Seg Neutrophils # Man Lymphocytes # (Manual) Monocytes # (Manual) Eosinophils # (Manual) PT INR Fibrinogen dRVVT Confirm Interp Factor V Activity POC ABG pH POC ABG pCO2 POC ABG pO2 Sodium Potassium Chloride Carbon Dioxide BUN Creatinine Glucose POC Glucose 110 H 125 H 136 H Lactic Acid Calcium Phosphorus Magnesium Direct Bilirubin AST ALT Alkaline Phosphatase Lactate Dehydrogenase Troponin T C-Reactive Protein Total Protein Albumin Prealbumin Triglycerides Cholesterol LDL Cholesterol Direct HDL Cholesterol Urine pH Urine WBC (Auto) Urine Creatinine Urine Total Protein Fluid Total Protein Vancomycin Trough Rheumatoid Factor Complement C4 Miscellaneous Test Crossmatch 11/20/16 11/20/16 11/20/16 05:00 05:00 05:51 WBC 13.1 H RBC 2.74 L Hgb 7.7 L Hct 23.6 L MCV MCH MCHC RDW 16.9 H Plt Count Lymph % (Auto) [place] % (Auto) 10.8 H Lymph # [place] # 1.4 H Baso # Seg Neutrophils % Seg Neuts % (Manual) Lymphocytes % (Manual) Monocytes % (Manual) Eosinophils % (Manual) Basophils % (Manual) Nucleated RBC % Seg Neutrophils # 7.9 H Seg Neutrophils # Man Lymphocytes # (Manual) Monocytes # (Manual) Eosinophils # (Manual) PT INR Fibrinogen dRVVT Confirm Interp Factor V Activity POC ABG pH POC ABG pCO2 POC ABG pO2 Sodium Potassium Chloride Carbon Dioxide BUN 31 H Creatinine 1.8 H Glucose 129 H POC Glucose 133 H Lactic Acid Calcium Phosphorus Magnesium Direct Bilirubin AST ALT Alkaline Phosphatase Lactate Dehydrogenase Troponin T C-Reactive Protein Total Protein Albumin Prealbumin Triglycerides Cholesterol LDL Cholesterol Direct HDL Cholesterol Urine pH Urine WBC (Auto) Urine Creatinine Urine Total Protein Fluid Total Protein Vancomycin Trough Rheumatoid Factor Complement C4 Miscellaneous Test Crossmatch 11/20/16 11/20/16 11/21/16 12:40 18:10 01:20 WBC RBC Hgb Hct MCV MCH MCHC RDW Plt Count Lymph % (Auto) [place] % (Auto) Lymph # [place] # Baso # Seg Neutrophils % Seg Neuts % (Manual) Lymphocytes % (Manual) Monocytes % (Manual) Eosinophils % (Manual) Basophils % (Manual) Nucleated RBC % Seg Neutrophils # Seg Neutrophils # Man Lymphocytes # (Manual) Monocytes # (Manual) Eosinophils # (Manual) PT INR Fibrinogen dRVVT Confirm Interp Factor V Activity POC ABG pH POC ABG pCO2 POC ABG pO2 Sodium Potassium Chloride Carbon Dioxide BUN Creatinine Glucose POC Glucose 134 H 138 H 136 H Lactic Acid Calcium Phosphorus Magnesium Direct Bilirubin AST ALT Alkaline Phosphatase Lactate Dehydrogenase Troponin T C-Reactive Protein Total Protein Albumin Prealbumin Triglycerides Cholesterol LDL Cholesterol Direct HDL Cholesterol Urine pH Urine WBC (Auto) Urine Creatinine Urine Total Protein Fluid Total Protein Vancomycin Trough Rheumatoid Factor Complement C4 Miscellaneous Test Crossmatch 11/21/16 11/21/16 11/21/16 07:04 07:45 07:45 WBC 22.0 H RBC 2.91 L Hgb 8.2 L Hct 25.4 L MCV MCH MCHC RDW 17.1 H Plt Count Lymph % (Auto) [place] % (Auto) Lymph # [place] # Baso # Seg Neutrophils % Seg Neuts % (Manual) Lymphocytes % (Manual) 8.0 L Monocytes % (Manual) Eosinophils % (Manual) Basophils % (Manual) Nucleated RBC % Seg Neutrophils # Seg Neutrophils # Man 14.7 H Lymphocytes # (Manual) Monocytes # (Manual) 1.1 H Eosinophils # (Manual) PT INR Fibrinogen dRVVT Confirm Interp Factor V Activity POC ABG pH POC ABG pCO2 POC ABG pO2 Sodium Potassium Chloride Carbon Dioxide BUN 42 H Creatinine 2.0 H Glucose POC Glucose 108 H Lactic Acid Calcium Phosphorus Magnesium Direct Bilirubin AST ALT Alkaline Phosphatase Lactate Dehydrogenase Troponin T C-Reactive Protein Total Protein Albumin Prealbumin Triglycerides Cholesterol LDL Cholesterol Direct HDL Cholesterol Urine pH Urine WBC (Auto) Urine Creatinine Urine Total Protein Fluid Total Protein Vancomycin Trough Rheumatoid Factor Complement C4 Miscellaneous Test Crossmatch 11/21/16 11/21/16 11/21/16 08:38 10:09 11:20 WBC RBC Hgb Hct MCV MCH MCHC RDW Plt Count Lymph % (Auto) [place] % (Auto) Lymph # [place] # Baso # Seg Neutrophils % Seg Neuts % (Manual) Lymphocytes % (Manual) Monocytes % (Manual) Eosinophils % (Manual) Basophils % (Manual) Nucleated RBC % Seg Neutrophils # Seg Neutrophils # Man Lymphocytes # (Manual) Monocytes # (Manual) Eosinophils # (Manual) PT INR Fibrinogen dRVVT Confirm Interp Factor V Activity POC ABG pH 7.346 L POC ABG pCO2 34.4 L POC ABG pO2 314 H Sodium Potassium Chloride Carbon Dioxide BUN Creatinine Glucose POC Glucose 195 H 153 H Lactic Acid Calcium Phosphorus Magnesium Direct Bilirubin AST ALT Alkaline Phosphatase Lactate Dehydrogenase Troponin T C-Reactive Protein Total Protein Albumin Prealbumin Triglycerides Cholesterol LDL Cholesterol Direct HDL Cholesterol Urine pH Urine WBC (Auto) Urine Creatinine Urine Total Protein Fluid Total Protein Vancomycin Trough Rheumatoid Factor Complement C4 Miscellaneous Test Crossmatch 11/21/16 11/22/16 11/22/16 23:37 04:48 05:00 WBC 29.7 H RBC 2.73 L Hgb 7.5 L Hct 24.2 L MCV MCH 27 L MCHC RDW 17.4 H Plt Count Lymph % (Auto) [place] % (Auto) Lymph # [place] # Baso # Seg Neutrophils % Seg Neuts % (Manual) Lymphocytes % (Manual) 7.0 L Monocytes % (Manual) Eosinophils % (Manual) Basophils % (Manual) Nucleated RBC % Seg Neutrophils # Seg Neutrophils # Man 15.4 H Lymphocytes # (Manual) Monocytes # (Manual) Eosinophils # (Manual) PT INR Fibrinogen dRVVT Confirm Interp Factor V Activity POC ABG pH POC ABG pCO2 24.6 L POC ABG pO2 189 H Sodium Potassium Chloride Carbon Dioxide BUN Creatinine Glucose POC Glucose 65 L Lactic Acid Calcium Phosphorus Magnesium Direct Bilirubin AST ALT Alkaline Phosphatase Lactate Dehydrogenase Troponin T C-Reactive Protein Total Protein Albumin Prealbumin Triglycerides Cholesterol LDL Cholesterol Direct HDL Cholesterol Urine pH Urine WBC (Auto) Urine Creatinine Urine Total Protein Fluid Total Protein Vancomycin Trough Rheumatoid Factor Complement C4 Miscellaneous Test Crossmatch 11/22/16 11/23/16 11/23/16 05:00 03:44 04:06 WBC RBC 2.52 L Hgb 7.2 L Hct 21.5 L MCV MCH MCHC RDW 17.1 H Plt Count Lymph % (Auto) [place] % (Auto) 12.4 H Lymph # [place] # 1.4 H Baso # Seg Neutrophils % Seg Neuts % (Manual) Lymphocytes % (Manual) Monocytes % (Manual) Eosinophils % (Manual) Basophils % (Manual) Nucleated RBC % Seg Neutrophils # Seg Neutrophils # Man Lymphocytes # (Manual) Monocytes # (Manual) Eosinophils # (Manual) PT INR Fibrinogen dRVVT Confirm Interp Factor V Activity POC ABG pH 7.493 H POC ABG pCO2 29.5 L POC ABG pO2 49 L Sodium 134 L Potassium Chloride 95.9 L Carbon Dioxide 14 L D BUN 51 H Creatinine 2.6 H Glucose POC Glucose Lactic Acid Calcium Phosphorus Magnesium Direct Bilirubin AST ALT Alkaline Phosphatase Lactate Dehydrogenase Troponin T C-Reactive Protein Total Protein Albumin Prealbumin Triglycerides Cholesterol LDL Cholesterol Direct HDL Cholesterol Urine pH Urine WBC (Auto) Urine Creatinine Urine Total Protein Fluid Total Protein Vancomycin Trough Rheumatoid Factor Complement C4 Miscellaneous Test Crossmatch 11/23/16 11/23/16 11/24/16 04:06 11:29 06:39 WBC RBC Hgb Hct MCV MCH MCHC RDW Plt Count Lymph % (Auto) [place] % (Auto) Lymph # [place] # Baso # Seg Neutrophils % Seg Neuts % (Manual) Lymphocytes % (Manual) Monocytes % (Manual) Eosinophils % (Manual) Basophils % (Manual) Nucleated RBC % Seg Neutrophils # Seg Neutrophils # Man Lymphocytes # (Manual) Monocytes # (Manual) Eosinophils # (Manual) PT INR Fibrinogen dRVVT Confirm Interp Factor V Activity POC ABG pH POC ABG pCO2 POC ABG pO2 Sodium 136 L Potassium Chloride 95.2 L Carbon Dioxide BUN 60 H Creatinine 2.9 H Glucose POC Glucose 69 L 305 H Lactic Acid Calcium Phosphorus Magnesium 1.60 L Direct Bilirubin AST ALT Alkaline Phosphatase Lactate Dehydrogenase Troponin T C-Reactive Protein Total Protein Albumin Prealbumin Triglycerides Cholesterol LDL Cholesterol Direct HDL Cholesterol Urine pH Urine WBC (Auto) Urine Creatinine Urine Total Protein Fluid Total Protein Vancomycin Trough Rheumatoid Factor Complement C4 Miscellaneous Test Crossmatch 11/24/16 11/24/16 11/24/16 06:43 08:08 08:08 WBC 11.2 H RBC 2.47 L Hgb 6.8 L Hct 20.6 L MCV MCH MCHC RDW 17.0 H Plt Count Lymph % (Auto) [place] % (Auto) 10.3 H Lymph # [place] # 1.2 H Baso # Seg Neutrophils % Seg Neuts % (Manual) Lymphocytes % (Manual) Monocytes % (Manual) Eosinophils % (Manual) Basophils % (Manual) Nucleated RBC % Seg Neutrophils # Seg Neutrophils # Man Lymphocytes # (Manual) Monocytes # (Manual) Eosinophils # (Manual) PT INR Fibrinogen dRVVT Confirm Interp Factor V Activity POC ABG pH POC ABG pCO2 POC ABG pO2 Sodium 135 L Potassium Chloride 96.3 L Carbon Dioxide BUN 61 H Creatinine 3.1 H Glucose POC Glucose 62 L Lactic Acid Calcium 8.2 L Phosphorus Magnesium Direct Bilirubin AST ALT Alkaline Phosphatase Lactate Dehydrogenase Troponin T C-Reactive Protein Total Protein Albumin Prealbumin Triglycerides Cholesterol LDL Cholesterol Direct HDL Cholesterol Urine pH Urine WBC (Auto) Urine Creatinine Urine Total Protein Fluid Total Protein Vancomycin Trough Rheumatoid Factor Complement C4 Miscellaneous Test Crossmatch 11/24/16 11/24/16 11/24/16 08:34 11:20 12:41 WBC RBC Hgb Hct MCV MCH MCHC RDW Plt Count Lymph % (Auto) [place] % (Auto) Lymph # [place] # Baso # Seg Neutrophils % Seg Neuts % (Manual) Lymphocytes % (Manual) Monocytes % (Manual) Eosinophils % (Manual) Basophils % (Manual) Nucleated RBC % Seg Neutrophils # Seg Neutrophils # Man Lymphocytes # (Manual) Monocytes # (Manual) Eosinophils # (Manual) PT INR Fibrinogen dRVVT Confirm Interp Factor V Activity POC ABG pH POC ABG pCO2 POC ABG pO2 Sodium Potassium Chloride Carbon Dioxide BUN Creatinine Glucose POC Glucose 108 H Lactic Acid Calcium Phosphorus Magnesium 1.60 L Direct Bilirubin AST ALT Alkaline Phosphatase Lactate Dehydrogenase Troponin T C-Reactive Protein Total Protein Albumin Prealbumin Triglycerides Cholesterol LDL Cholesterol Direct HDL Cholesterol Urine pH Urine WBC (Auto) Urine Creatinine Urine Total Protein Fluid Total Protein Vancomycin Trough Rheumatoid Factor Complement C4 Miscellaneous Test Crossmatch See Detail 11/25/16 11/25/16 11/25/16 00:03 04:42 04:42 WBC RBC 3.03 L Hgb 8.6 L Hct 25.3 L MCV MCH MCHC RDW 16.2 H Plt Count Lymph % (Auto) [place] % (Auto) 8.1 H Lymph # [place] # Baso # Seg Neutrophils % 71.3 H Seg Neuts % (Manual) Lymphocytes % (Manual) Monocytes % (Manual) Eosinophils % (Manual) Basophils % (Manual) Nucleated RBC % Seg Neutrophils # Seg Neutrophils # Man Lymphocytes # (Manual) Monocytes # (Manual) Eosinophils # (Manual) PT INR Fibrinogen dRVVT Confirm Interp Factor V Activity POC ABG pH POC ABG pCO2 POC ABG pO2 Sodium Potassium Chloride Carbon Dioxide BUN 61 H Creatinine 3.0 H Glucose 102 H POC Glucose 113 H Lactic Acid Calcium 8.2 L Phosphorus Magnesium Direct Bilirubin AST ALT Alkaline Phosphatase 142 H Lactate Dehydrogenase Troponin T C-Reactive Protein Total Protein 5.7 L Albumin 1.5 L Prealbumin Triglycerides Cholesterol LDL Cholesterol Direct HDL Cholesterol Urine pH Urine WBC (Auto) Urine Creatinine Urine Total Protein Fluid Total Protein Vancomycin Trough Rheumatoid Factor Complement C4 Miscellaneous Test Crossmatch 11/25/16 11/25/16 11/25/16 05:12 11:31 14:12 WBC RBC Hgb Hct MCV MCH MCHC RDW Plt Count Lymph % (Auto) [place] % (Auto) Lymph # [place] # Baso # Seg Neutrophils % Seg Neuts % (Manual) Lymphocytes % (Manual) Monocytes % (Manual) Eosinophils % (Manual) Basophils % (Manual) Nucleated RBC % Seg Neutrophils # Seg Neutrophils # Man Lymphocytes # (Manual) Monocytes # (Manual) Eosinophils # (Manual) PT INR Fibrinogen dRVVT Confirm Interp Factor V Activity POC ABG pH 7.487 H POC ABG pCO2 POC ABG pO2 153 H Sodium Potassium Chloride Carbon Dioxide BUN Creatinine Glucose POC Glucose 131 H 140 H Lactic Acid Calcium Phosphorus Magnesium Direct Bilirubin AST ALT Alkaline Phosphatase Lactate Dehydrogenase Troponin T C-Reactive Protein Total Protein Albumin Prealbumin Triglycerides Cholesterol LDL Cholesterol Direct HDL Cholesterol Urine pH Urine WBC (Auto) Urine Creatinine Urine Total Protein Fluid Total Protein Vancomycin Trough Rheumatoid Factor Complement C4 Miscellaneous Test Crossmatch 11/25/16 11/26/16 11/26/16 17:23 00:09 05:13 WBC RBC 2.94 L Hgb 8.4 L Hct 24.6 L MCV MCH MCHC RDW 16.4 H Plt Count Lymph % (Auto) [place] % (Auto) 12.3 H Lymph # [place] # 1.1 H Baso # Seg Neutrophils % Seg Neuts % (Manual) Lymphocytes % (Manual) Monocytes % (Manual) Eosinophils % (Manual) Basophils % (Manual) Nucleated RBC % Seg Neutrophils # Seg Neutrophils # Man Lymphocytes # (Manual) Monocytes # (Manual) Eosinophils # (Manual) PT INR Fibrinogen dRVVT Confirm Interp Factor V Activity POC ABG pH POC ABG pCO2 POC ABG pO2 Sodium Potassium Chloride Carbon Dioxide BUN Creatinine Glucose POC Glucose 146 H 112 H Lactic Acid Calcium Phosphorus Magnesium Direct Bilirubin AST ALT Alkaline Phosphatase Lactate Dehydrogenase Troponin T C-Reactive Protein Total Protein Albumin Prealbumin Triglycerides Cholesterol LDL Cholesterol Direct HDL Cholesterol Urine pH Urine WBC (Auto) Urine Creatinine Urine Total Protein Fluid Total Protein Vancomycin Trough Rheumatoid Factor Complement C4 Miscellaneous Test Crossmatch 11/26/16 11/26/16 11/26/16 05:13 05:28 11:53 WBC RBC Hgb Hct MCV MCH MCHC RDW Plt Count Lymph % (Auto) [place] % (Auto) Lymph # [place] # Baso # Seg Neutrophils % Seg Neuts % (Manual) Lymphocytes % (Manual) Monocytes % (Manual) Eosinophils % (Manual) Basophils % (Manual) Nucleated RBC % Seg Neutrophils # Seg Neutrophils # Man Lymphocytes # (Manual) Monocytes # (Manual) Eosinophils # (Manual) PT INR Fibrinogen dRVVT Confirm Interp Factor V Activity POC ABG pH POC ABG pCO2 POC ABG pO2 Sodium Potassium Chloride 97.8 L Carbon Dioxide BUN 37 H Creatinine 2.0 H Glucose 109 H POC Glucose 117 H 111 H Lactic Acid Calcium 7.9 L Phosphorus 1.80 L D Magnesium Direct Bilirubin AST ALT Alkaline Phosphatase Lactate Dehydrogenase Troponin T C-Reactive Protein Total Protein Albumin Prealbumin Triglycerides Cholesterol LDL Cholesterol Direct HDL Cholesterol Urine pH Urine WBC (Auto) Urine Creatinine Urine Total Protein Fluid Total Protein Vancomycin Trough Rheumatoid Factor Complement C4 Miscellaneous Test Crossmatch Allied health notes reviewed: RT
[2016-11-26] MEDS ORDERED: TPN ADULT 2,016 ML IV SCH (20:00)
[2016-11-27] MEDS: APRESOLINE IV SCH ×4 (00:17→17:42)
[2016-11-27] MEDS: HumuLIN R SUB-Q SCH ×4 (00:18→17:44)
[2016-11-27 06:17] LABS: ABG Base Excess 2.2 mmol/L (-2.0-3.0); ABG HCO3 26.4 mmol/L (20.0-26.0); ABG Methemoglobin 0.4 % (0.0-1.5); ABG Oxygen Saturation 97.1 % (95.0-99.0); ABG PCO2 39.3 mm Hg; ABG PH 7.445 pH Units (7.350-7.450); ABG PO2 75.2 mm Hg (80.0-90.0)
[2016-11-27 06:53] LABS: Hematocrit 23.4 % (30.3-42.9); Hemoglobin 7.6 gm/dl (10.1-14.3); Mean Corpuscular HGB Conc 33 % (30-34); Mean Corpuscular Hemoglobin 28 pg (28-32); Mean Corpuscular Volume 85 fl (79-97); Platelet Count 230 K/mm3 (140-440); Red Blood Count 2.75 M/mm3 (3.65-5.03); Red Cell Distribution Width 16.5 % (13.2-15.2)
[2016-11-27 07:02] LABS: Calcium 8.4 mg/dL (8.4-10.2)
--- NOTE | 2016-11-27 09:23 | XRay Report ---
AP CHEST: HISTORY: Followup respiratory failure Lines and support devices remain in the same position. Mild cardiomegaly and pulmonary venous congestion are stable. Bibasilar atelectatic changes and small left pleural effusion have decreased. The lungs are generally clear. No new acute process is appreciated. IMPRESSION: Mild improvement in bibasilar atelectasis and small left pleural effusion.
--- NOTE | 2016-11-27 10:57 | Progress Note ---
Assessment and Plan Acute Hypoxemic Respiratory Failure (now with exacerbation and back on MVS) Hypertension (unable to receive p.o. meds) s/p tracheostomy Acute encephalopathy s/p CVA Oropharyngeal dysphagia Enterococcal bacteremia sepsis syndrome Anemia Obesity JUANITA now on hemodialysis Enteric Fistula - continue AC support; rate 12 peep 5 and 500mls - PSV trial again in am as tolerated - continue to wean FiO2 for sats > 94% - continue bronchodilators and pulmonary toilet - VAP bundle addressed - continue scheduled IV hydralazine and interspace with prn IV metoprolol with hold parameters till less labile and able to absorb p.o. better - continue HD/UF per nephrology - follow electrolytes and correct as necessary - continue TPN in short term till enteric fistula heals - continue GI & VTE prophylaxis - Continue flu & pneumovax per protocol ... remains critically ill on life sustaining interventions including MVS and at risk for further deterioration including ....32' CCT today without overlap Subjective Date of service: 11/27/16 Principal diagnosis: Acute resp failure on MVS; S/P Acute CVA; Acute Encephalopathy; JUANITA Interval history: Patient is seen today for: acute hypoxemic respiratory failure s/p tracheostomy and on MVS Seen and examined at bedside; 24hour events reviewed; nursing and respiratory care staff consulted; no adverse overnight events reported to me; increased work of breathing today; tolerated only 2 hrs on PSV; AMS is persistent; No N/V/ F/C; no seizures Objective Vital Signs - 12hr 11/26/16 11/27/16 11/27/16 23:00 00:00 00:17 Temperature 100.5 F H Pulse Rate 126 H 138 H 136 H Pulse Rate [ From Monitor] Respiratory 13 14 Rate Blood Pressure 175/96 162/94 167/94 O2 Sat by Pulse 97 99 Oximetry O2 Sat by Pulse Oximetry [ Assessment] 11/27/16 11/27/16 11/27/16 00:18 01:00 02:00 Temperature Pulse Rate 135 H 138 H 131 H Pulse Rate [ From Monitor] Respiratory 13 12 Rate Blood Pressure 150/81 141/80 O2 Sat by Pulse 96 94 94 Oximetry O2 Sat by Pulse 96 Oximetry [ Assessment] 11/27/16 11/27/16 11/27/16 03:00 03:30 03:52 Temperature 100.1 F H Pulse Rate 134 H 144 H Pulse Rate [ From Monitor] Respiratory 15 16 Rate Blood Pressure 159/92 159/92 O2 Sat by Pulse 95 Oximetry O2 Sat by Pulse Oximetry [ Assessment] 11/27/16 11/27/16 11/27/16 04:00 04:30 05:00 Temperature Pulse Rate 142 H 136 H 141 H Pulse Rate [ From Monitor] Respiratory 15 13 17 Rate Blood Pressure 159/92 163/84 O2 Sat by Pulse 98 98 93 Oximetry O2 Sat by Pulse Oximetry [ Assessment] 11/27/16 11/27/16 11/27/16 05:30 06:00 06:18 Temperature Pulse Rate 143 H 144 H 140 H Pulse Rate [ From Monitor] Respiratory 16 14 Rate Blood Pressure 163/84 170/80 170/80 O2 Sat by Pulse 100 94 Oximetry O2 Sat by Pulse Oximetry [ Assessment] 11/27/16 11/27/16 11/27/16 06:30 07:00 07:30 Temperature Pulse Rate 138 H 136 H 138 H Pulse Rate [ From Monitor] Respiratory 14 16 15 Rate Blood Pressure 170/80 137/51 137/51 O2 Sat by Pulse 97 88 98 Oximetry O2 Sat by Pulse Oximetry [ Assessment] 11/27/16 11/27/16 11/27/16 08:00 08:30 09:00 Temperature 101.2 F H Pulse Rate 145 H 142 H 144 H Pulse Rate [ 77 From Monitor] Respiratory 16 22 28 H Rate Blood Pressure 137/51 162/77 168/92 O2 Sat by Pulse 94 90 99 Oximetry O2 Sat by Pulse Oximetry [ Assessment] 11/27/16 11/27/16 11/27/16 09:16 09:30 10:00 Temperature Pulse Rate 144 H 145 H Pulse Rate [ From Monitor] Respiratory 29 H 32 H Rate Blood Pressure 168/92 168/92 O2 Sat by Pulse 91 Oximetry O2 Sat by Pulse 99 Oximetry [ Assessment] Constitutional: appears uncomfortable, other (eyes open; tracking movements) Eyes: non-icteric, other (tracheostomy tube in midline of neck) ENT: oropharynx moist, oropharyngeal exudate pre Neck: supple, no lymphadenopathy, no JVD, other (no thyromegaly) Effort: mildly labored Ascultation: Bilateral: diminished breath sounds (bases), rhonchi (bases) Percussion: Bilateral: dull (bases) Cardiovascular: regular rate and rhythm Gastrointestinal: normoactive bowel sounds, soft, non-tender, non-distended, other (RLQ stomas with colostomy bags as well as LUQ over PEG stoma) Integumentary: other (normal skin tugor; no tenting) Extremities: no cyanosis, pulses normal, edema Neurologic: pupils equal and round, unable to assess, other (encephalopathic; PERRL) Psychiatric: other (unable to assess; not responsive) CBC and BMP: 11/27/16 06:02 11/27/16 06:02 ABG, PT/INR, D-dimer: ABG POC ABG pH 7.487 (7.35-7.45) H 11/25/16 14:12 ABG pH 7.445 pH Units (7.350-7.450) 11/27/16 04:50 POC ABG pCO2 39.0 (35-45) 11/25/16 14:12 ABG pCO2 39.3 mm Hg 11/27/16 04:50 POC ABG pO2 153 (80-105) H 11/25/16 14:12 ABG pO2 75.2 mm Hg (80.0-90.0) L 11/27/16 04:50 POC ABG HCO3 29.5 11/25/16 14:12 POC ABG Total CO2 31 11/25/16 14:12 POC ABG O2 Sat 99 11/25/16 14:12 ABG O2 Saturation 97.1 % (95.0-99.0) 11/27/16 04:50 PT/INR, D-dimer PT 16.8 Sec. (12.2-14.9) H 11/17/16 03:20 INR 1.37 (0.87-1.13) H 11/17/16 03:20 Abnormal lab findings: Abnormal Labs 09/03/16 09/03/16 09/03/16 12:12 15:07 16:20 WBC RBC Hgb Hct MCV MCH MCHC RDW Plt Count Lymph % (Auto) [place] % (Auto) Lymph # [place] # Baso # Seg Neutrophils % Seg Neuts % (Manual) Lymphocytes % (Manual) Monocytes % (Manual) Eosinophils % (Manual) Basophils % (Manual) Nucleated RBC % Seg Neutrophils # Seg Neutrophils # Man Lymphocytes # (Manual) Monocytes # (Manual) Eosinophils # (Manual) PT INR Fibrinogen dRVVT Confirm Interp Factor V Activity POC ABG pH 7.452 H POC ABG pCO2 POC ABG pO2 ABG pO2 ABG HCO3 ABG Hemoglobin Oxyhemoglobin Sodium Potassium Chloride Carbon Dioxide BUN Creatinine Glucose POC Glucose 178 H Lactic Acid Calcium Phosphorus 2.20 L Magnesium 1.60 L Direct Bilirubin AST ALT Alkaline Phosphatase Lactate Dehydrogenase Troponin T C-Reactive Protein Total Protein Albumin Prealbumin Triglycerides Cholesterol LDL Cholesterol Direct HDL Cholesterol Urine pH Urine WBC (Auto) Urine Creatinine Urine Total Protein Fluid Total Protein Vancomycin Trough Rheumatoid Factor Complement C4 Miscellaneous Test Crossmatch 09/03/16 09/03/16 09/03/16 17:57 17:58 23:50 WBC RBC Hgb Hct MCV MCH MCHC RDW Plt Count Lymph % (Auto) [place] % (Auto) Lymph # [place] # Baso # Seg Neutrophils % Seg Neuts % (Manual) Lymphocytes % (Manual) Monocytes % (Manual) Eosinophils % (Manual) Basophils % (Manual) Nucleated RBC % Seg Neutrophils # Seg Neutrophils # Man Lymphocytes # (Manual) Monocytes # (Manual) Eosinophils # (Manual) PT INR Fibrinogen dRVVT Confirm Interp Factor V Activity POC ABG pH POC ABG pCO2 POC ABG pO2 ABG pO2 ABG HCO3 ABG Hemoglobin Oxyhemoglobin Sodium Potassium Chloride Carbon Dioxide BUN Creatinine Glucose POC Glucose 162 H 145 H Lactic Acid Calcium Phosphorus 2.30 L Magnesium Direct Bilirubin AST ALT Alkaline Phosphatase Lactate Dehydrogenase Troponin T C-Reactive Protein Total Protein Albumin Prealbumin Triglycerides Cholesterol LDL Cholesterol Direct HDL Cholesterol Urine pH Urine WBC (Auto) Urine Creatinine Urine Total Protein Fluid Total Protein Vancomycin Trough Rheumatoid Factor Complement C4 Miscellaneous Test Crossmatch 09/04/16 09/04/16 09/04/16 03:31 03:31 05:42 WBC RBC Hgb 9.7 L D Hct MCV 72 L MCH 23 L MCHC RDW 17.5 H Plt Count Lymph % (Auto) 11.1 L [place] % (Auto) Lymph # [place] # Baso # Seg Neutrophils % 84.3 H Seg Neuts % (Manual) Lymphocytes % (Manual) Monocytes % (Manual) Eosinophils % (Manual) Basophils % (Manual) Nucleated RBC % Seg Neutrophils # 8.9 H Seg Neutrophils # Man Lymphocytes # (Manual) Monocytes # (Manual) Eosinophils # (Manual) PT INR Fibrinogen dRVVT Confirm Interp Factor V Activity POC ABG pH POC ABG pCO2 POC ABG pO2 ABG pO2 ABG HCO3 ABG Hemoglobin Oxyhemoglobin Sodium 135 L Potassium 2.9 L* Chloride 97.2 L Carbon Dioxide 19 L BUN Creatinine 1.7 H Glucose 170 H POC Glucose 152 H Lactic Acid Calcium Phosphorus Magnesium Direct Bilirubin AST ALT Alkaline Phosphatase Lactate Dehydrogenase Troponin T C-Reactive Protein Total Protein Albumin Prealbumin Triglycerides 160 H Cholesterol LDL Cholesterol Direct HDL Cholesterol 31 L Urine pH Urine WBC (Auto) Urine Creatinine Urine Total Protein Fluid Total Protein Vancomycin Trough Rheumatoid Factor Complement C4 Miscellaneous Test Crossmatch 09/04/16 09/04/16 09/04/16 11:34 17:46 23:29 WBC RBC Hgb Hct MCV MCH MCHC RDW Plt Count Lymph % (Auto) [place] % (Auto) Lymph # [place] # Baso # Seg Neutrophils % Seg Neuts % (Manual) Lymphocytes % (Manual) Monocytes % (Manual) Eosinophils % (Manual) Basophils % (Manual) Nucleated RBC % Seg Neutrophils # Seg Neutrophils # Man Lymphocytes # (Manual) Monocytes # (Manual) Eosinophils # (Manual) PT INR Fibrinogen dRVVT Confirm Interp Factor V Activity POC ABG pH POC ABG pCO2 POC ABG pO2 ABG pO2 ABG HCO3 ABG Hemoglobin Oxyhemoglobin Sodium Potassium Chloride Carbon Dioxide BUN Creatinine Glucose POC Glucose 165 H 210 H 139 H Lactic Acid Calcium Phosphorus Magnesium Direct Bilirubin AST ALT Alkaline Phosphatase Lactate Dehydrogenase Troponin T C-Reactive Protein Total Protein Albumin Prealbumin Triglycerides Cholesterol LDL Cholesterol Direct HDL Cholesterol Urine pH Urine WBC (Auto) Urine Creatinine Urine Total Protein Fluid Total Protein Vancomycin Trough Rheumatoid Factor Complement C4 Miscellaneous Test Crossmatch 09/05/16 09/05/16 09/05/16 04:05 04:05 05:38 WBC RBC Hgb Hct MCV 76 L D MCH 23 L MCHC RDW 17.8 H Plt Count Lymph % (Auto) [place] % (Auto) Lymph # [place] # Baso # Seg Neutrophils % Seg Neuts % (Manual) Lymphocytes % (Manual) Monocytes % (Manual) Eosinophils % (Manual) Basophils % (Manual) Nucleated RBC % Seg Neutrophils # Seg Neutrophils # Man Lymphocytes # (Manual) Monocytes # (Manual) Eosinophils # (Manual) PT INR Fibrinogen dRVVT Confirm Interp Factor V Activity POC ABG pH POC ABG pCO2 POC ABG pO2 ABG pO2 ABG HCO3 ABG Hemoglobin Oxyhemoglobin Sodium 134 L Potassium Chloride Carbon Dioxide 18 L BUN Creatinine 1.8 H Glucose 192 H POC Glucose 175 H Lactic Acid Calcium Phosphorus Magnesium Direct Bilirubin AST ALT Alkaline Phosphatase Lactate Dehydrogenase Troponin T C-Reactive Protein Total Protein Albumin Prealbumin Triglycerides Cholesterol LDL Cholesterol Direct HDL Cholesterol Urine pH Urine WBC (Auto) Urine Creatinine Urine Total Protein Fluid Total Protein Vancomycin Trough Rheumatoid Factor Complement C4 Miscellaneous Test Crossmatch 09/05/16 09/05/16 09/05/16 11:38 17:48 23:22 WBC RBC Hgb Hct MCV MCH MCHC RDW Plt Count Lymph % (Auto) [place] % (Auto) Lymph # [place] # Baso # Seg Neutrophils % Seg Neuts % (Manual) Lymphocytes % (Manual) Monocytes % (Manual) Eosinophils % (Manual) Basophils % (Manual) Nucleated RBC % Seg Neutrophils # Seg Neutrophils # Man Lymphocytes # (Manual) Monocytes # (Manual) Eosinophils # (Manual) PT INR Fibrinogen dRVVT Confirm Interp Factor V Activity POC ABG pH POC ABG pCO2 POC ABG pO2 ABG pO2 ABG HCO3 ABG Hemoglobin Oxyhemoglobin Sodium Potassium Chloride Carbon Dioxide BUN Creatinine Glucose POC Glucose 164 H 186 H 195 H Lactic Acid Calcium Phosphorus Magnesium Direct Bilirubin AST ALT Alkaline Phosphatase Lactate Dehydrogenase Troponin T C-Reactive Protein Total Protein Albumin Prealbumin Triglycerides Cholesterol LDL Cholesterol Direct HDL Cholesterol Urine pH Urine WBC (Auto) Urine Creatinine Urine Total Protein Fluid Total Protein Vancomycin Trough Rheumatoid Factor Complement C4 Miscellaneous Test Crossmatch 09/06/16 09/06/16 09/06/16 04:12 05:59 07:32 WBC RBC Hgb Hct MCV MCH MCHC RDW Plt Count Lymph % (Auto) [place] % (Auto) Lymph # [place] # Baso # Seg Neutrophils % Seg Neuts % (Manual) Lymphocytes % (Manual) Monocytes % (Manual) Eosinophils % (Manual) Basophils % (Manual) Nucleated RBC % Seg Neutrophils # Seg Neutrophils # Man Lymphocytes # (Manual) Monocytes # (Manual) Eosinophils # (Manual) PT INR Fibrinogen dRVVT Confirm Interp Factor V Activity POC ABG pH 7.514 H POC ABG pCO2 29.1 L POC ABG pO2 72 L ABG pO2 ABG HCO3 ABG Hemoglobin Oxyhemoglobin Sodium 133 L Potassium 3.4 L Chloride 94.9 L Carbon Dioxide 19 L BUN 30 H Creatinine 2.1 H Glucose 139 H POC Glucose 146 H Lactic Acid Calcium Phosphorus Magnesium Direct Bilirubin AST ALT Alkaline Phosphatase Lactate Dehydrogenase Troponin T C-Reactive Protein Total Protein Albumin Prealbumin Triglycerides Cholesterol LDL Cholesterol Direct HDL Cholesterol Urine pH Urine WBC (Auto) Urine Creatinine Urine Total Protein Fluid Total Protein Vancomycin Trough Rheumatoid Factor Complement C4 Miscellaneous Test Crossmatch 09/06/16 09/06/16 09/06/16 11:57 17:58 19:02 WBC RBC Hgb Hct MCV MCH MCHC RDW Plt Count Lymph % (Auto) [place] % (Auto) Lymph # [place] # [place] # Seg Neutrophils % Seg Neuts % (Manual) Lymphocytes % (Manual) Monocytes % (Manual) Eosinophils % (Manual) Basophils % (Manual) Nucleated RBC % Seg Neutrophils # Seg Neutrophils # Man Lymphocytes # (Manual) Monocytes # (Manual) Eosinophils # (Manual) PT INR Fibrinogen dRVVT Confirm Interp Factor V Activity POC ABG pH 7.465 H POC ABG pCO2 32.0 L POC ABG pO2 ABG pO2 ABG HCO3 ABG Hemoglobin Oxyhemoglobin Sodium Potassium Chloride Carbon Dioxide BUN Creatinine Glucose POC Glucose 165 H 160 H Lactic Acid Calcium Phosphorus Magnesium Direct Bilirubin AST ALT Alkaline Phosphatase Lactate Dehydrogenase Troponin T C-Reactive Protein Total Protein Albumin Prealbumin Triglycerides Cholesterol LDL Cholesterol Direct HDL Cholesterol Urine pH Urine WBC (Auto) Urine Creatinine Urine Total Protein Fluid Total Protein Vancomycin Trough Rheumatoid Factor Complement C4 Miscellaneous Test Crossmatch 09/06/16 09/07/16 09/07/16 23:45 02:47 02:47 WBC RBC Hgb Hct MCV MCH MCHC RDW Plt Count Lymph % (Auto) [place] % (Auto) Lymph # [place] # [place] # Seg Neutrophils % Seg Neuts % (Manual) Lymphocytes % (Manual) Monocytes % (Manual) Eosinophils % (Manual) Basophils % (Manual) Nucleated RBC % Seg Neutrophils # Seg Neutrophils # Man Lymphocytes # (Manual) Monocytes # (Manual) Eosinophils # (Manual) PT INR Fibrinogen dRVVT Confirm Interp Factor V Activity POC ABG pH POC ABG pCO2 POC ABG pO2 ABG pO2 ABG HCO3 ABG Hemoglobin Oxyhemoglobin Sodium Potassium Chloride Carbon Dioxide BUN Creatinine Glucose POC Glucose 204 H Lactic Acid Calcium Phosphorus Magnesium Direct Bilirubin AST ALT Alkaline Phosphatase Lactate Dehydrogenase Troponin T C-Reactive Protein Total Protein Albumin Prealbumin Triglycerides Cholesterol LDL Cholesterol Direct HDL Cholesterol Urine pH Urine WBC (Auto) 68.0 H Urine Creatinine 106.1 H Urine Total Protein Fluid Total Protein Vancomycin Trough Rheumatoid Factor Complement C4 Miscellaneous Test Crossmatch 09/07/16 09/07/16 09/07/16 04:50 06:19 06:39 WBC RBC Hgb Hct MCV MCH MCHC RDW Plt Count Lymph % (Auto) [place] % (Auto) Lymph # [place] # Baso # Seg Neutrophils % Seg Neuts % (Manual) Lymphocytes % (Manual) Monocytes % (Manual) Eosinophils % (Manual) Basophils % (Manual) Nucleated RBC % Seg Neutrophils # Seg Neutrophils # Man Lymphocytes # (Manual) Monocytes # (Manual) Eosinophils # (Manual) PT INR Fibrinogen dRVVT Confirm Interp Factor V Activity POC ABG pH 7.457 H POC ABG pCO2 32.1 L POC ABG pO2 76 L ABG pO2 ABG HCO3 ABG Hemoglobin Oxyhemoglobin Sodium 132 L Potassium Chloride 94.7 L Carbon Dioxide BUN 53 H Creatinine 2.9 H Glucose 151 H POC Glucose 149 H Lactic Acid Calcium Phosphorus Magnesium Direct Bilirubin AST ALT Alkaline Phosphatase Lactate Dehydrogenase Troponin T C-Reactive Protein Total Protein Albumin Prealbumin Triglycerides Cholesterol LDL Cholesterol Direct HDL Cholesterol Urine pH Urine WBC (Auto) Urine Creatinine Urine Total Protein Fluid Total Protein Vancomycin Trough Rheumatoid Factor Complement C4 Miscellaneous Test Crossmatch 09/07/16 09/07/16 09/07/16 09:20 11:43 11:43 WBC 19.4 H RBC Hgb 8.3 L Hct 26.4 L D MCV 72 L D MCH 22 L MCHC RDW 17.9 H Plt Count Lymph % (Auto) 8.5 L [place] % (Auto) Lymph # [place] # 1.0 H Baso # Seg Neutrophils % 85.8 H Seg Neuts % (Manual) Lymphocytes % (Manual) Monocytes % (Manual) Eosinophils % (Manual) Basophils % (Manual) Nucleated RBC % Seg Neutrophils # 16.6 H Seg Neutrophils # Man Lymphocytes # (Manual) Monocytes # (Manual) Eosinophils # (Manual) PT INR Fibrinogen dRVVT Confirm Interp Factor V Activity POC ABG pH POC ABG pCO2 POC ABG pO2 ABG pO2 ABG HCO3 ABG Hemoglobin Oxyhemoglobin Sodium 134 L Potassium Chloride 97.2 L Carbon Dioxide 20 L BUN 58 H Creatinine 2.9 H Glucose 147 H POC Glucose Lactic Acid Calcium Phosphorus 2.40 L Magnesium 2.40 H Direct Bilirubin AST ALT Alkaline Phosphatase Lactate Dehydrogenase Troponin T C-Reactive Protein Total Protein 5.8 L Albumin 2.2 L Prealbumin Triglycerides Cholesterol LDL Cholesterol Direct HDL Cholesterol Urine pH Urine WBC (Auto) Urine Creatinine Urine Total Protein Fluid Total Protein Vancomycin Trough Rheumatoid Factor Complement C4 58 H Miscellaneous Test Crossmatch 09/07/16 09/07/16 09/07/16 11:50 16:00 17:31 WBC RBC Hgb Hct MCV MCH MCHC RDW Plt Count Lymph % (Auto) [place] % (Auto) Lymph # [place] # Baso # Seg Neutrophils % Seg Neuts % (Manual) Lymphocytes % (Manual) Monocytes % (Manual) Eosinophils % (Manual) Basophils % (Manual) Nucleated RBC % Seg Neutrophils # Seg Neutrophils # Man Lymphocytes # (Manual) Monocytes # (Manual) Eosinophils # (Manual) PT INR Fibrinogen dRVVT Confirm Interp Factor V Activity POC ABG pH POC ABG pCO2 POC ABG pO2 158 H ABG pO2 ABG HCO3 ABG Hemoglobin Oxyhemoglobin Sodium Potassium Chloride Carbon Dioxide BUN Creatinine Glucose POC Glucose 175 H Lactic Acid Calcium Phosphorus Magnesium Direct Bilirubin AST ALT Alkaline Phosphatase Lactate Dehydrogenase Troponin T C-Reactive Protein Total Protein Albumin Prealbumin Triglycerides Cholesterol LDL Cholesterol Direct HDL Cholesterol Urine pH Urine WBC (Auto) Urine Creatinine 66.3 H Urine Total Protein Fluid Total Protein Vancomycin Trough Rheumatoid Factor Complement C4 Miscellaneous Test Crossmatch 09/07/16 09/08/16 09/08/16 23:50 05:46 06:18 WBC 17.8 H RBC 3.58 L Hgb 8.1 L Hct 25.5 L MCV 71 L MCH 23 L MCHC RDW 18.4 H Plt Count Lymph % (Auto) [place] % (Auto) Lymph # [place] # Baso # Seg Neutrophils % Seg Neuts % (Manual) 92.0 H Lymphocytes % (Manual) 6.0 L Monocytes % (Manual) Eosinophils % (Manual) Basophils % (Manual) Nucleated RBC % Seg Neutrophils # Seg Neutrophils # Man 16.4 H Lymphocytes # (Manual) 1.1 L Monocytes # (Manual) Eosinophils # (Manual) PT INR Fibrinogen dRVVT Confirm Interp Factor V Activity POC ABG pH POC ABG pCO2 34.3 L POC ABG pO2 71 L ABG pO2 ABG HCO3 ABG Hemoglobin Oxyhemoglobin Sodium Potassium Chloride Carbon Dioxide BUN Creatinine Glucose POC Glucose 216 H Lactic Acid Calcium Phosphorus Magnesium Direct Bilirubin AST ALT Alkaline Phosphatase Lactate Dehydrogenase Troponin T C-Reactive Protein Total Protein Albumin Prealbumin Triglycerides Cholesterol LDL Cholesterol Direct HDL Cholesterol Urine pH Urine WBC (Auto) Urine Creatinine Urine Total Protein Fluid Total Protein Vancomycin Trough Rheumatoid Factor Complement C4 Miscellaneous Test Crossmatch 09/08/16 09/08/16 09/08/16 06:18 06:51 10:55 WBC RBC Hgb Hct MCV MCH MCHC RDW Plt Count Lymph % (Auto) [place] % (Auto) Lymph # [place] # Baso # Seg Neutrophils % Seg Neuts % (Manual) Lymphocytes % (Manual) Monocytes % (Manual) Eosinophils % (Manual) Basophils % (Manual) Nucleated RBC % Seg Neutrophils # Seg Neutrophils # Man Lymphocytes # (Manual) Monocytes # (Manual) Eosinophils # (Manual) PT INR Fibrinogen dRVVT Confirm Interp Factor V Activity POC ABG pH POC ABG pCO2 POC ABG pO2 ABG pO2 ABG HCO3 ABG Hemoglobin Oxyhemoglobin Sodium 133 L Potassium Chloride 96.9 L Carbon Dioxide 20 L BUN 63 H Creatinine 2.7 H Glucose 195 H POC Glucose 204 H 169 H Lactic Acid Calcium Phosphorus Magnesium Direct Bilirubin AST ALT Alkaline Phosphatase Lactate Dehydrogenase Troponin T C-Reactive Protein Total Protein Albumin Prealbumin Triglycerides Cholesterol LDL Cholesterol Direct HDL Cholesterol Urine pH Urine WBC (Auto) Urine Creatinine Urine Total Protein Fluid Total Protein Vancomycin Trough Rheumatoid Factor Complement C4 Miscellaneous Test Crossmatch 09/08/16 09/08/16 09/08/16 11:48 11:48 11:48 WBC RBC Hgb Hct MCV MCH MCHC RDW Plt Count Lymph % (Auto) [place] % (Auto) Lymph # [place] # Baso # Seg Neutrophils % Seg Neuts % (Manual) Lymphocytes % (Manual) Monocytes % (Manual) Eosinophils % (Manual) Basophils % (Manual) Nucleated RBC % Seg Neutrophils # Seg Neutrophils # Man Lymphocytes # (Manual) Monocytes # (Manual) Eosinophils # (Manual) PT INR Fibrinogen 750 H dRVVT Confirm Interp Factor V Activity POC ABG pH POC ABG pCO2 POC ABG pO2 ABG pO2 ABG HCO3 ABG Hemoglobin Oxyhemoglobin Sodium Potassium Chloride Carbon Dioxide BUN Creatinine Glucose POC Glucose Lactic Acid Calcium Phosphorus Magnesium Direct Bilirubin AST ALT Alkaline Phosphatase Lactate Dehydrogenase Troponin T C-Reactive Protein 15.70 H Total Protein Albumin Prealbumin Triglycerides Cholesterol LDL Cholesterol Direct HDL Cholesterol Urine pH Urine WBC (Auto) Urine Creatinine Urine Total Protein Fluid Total Protein Vancomycin Trough Rheumatoid Factor 24 H Complement C4 Miscellaneous Test Crossmatch 09/08/16 09/08/16 09/09/16 15:35 18:25 00:24 WBC RBC Hgb Hct MCV MCH MCHC RDW Plt Count Lymph % (Auto) [place] % (Auto) Lymph # [place] # Baso # Seg Neutrophils % Seg Neuts % (Manual) Lymphocytes % (Manual) Monocytes % (Manual) Eosinophils % (Manual) Basophils % (Manual) Nucleated RBC % Seg Neutrophils # Seg Neutrophils # Man Lymphocytes # (Manual) Monocytes # (Manual) Eosinophils # (Manual) PT INR Fibrinogen dRVVT Confirm Interp Factor V Activity 182 H POC ABG pH POC ABG pCO2 POC ABG pO2 ABG pO2 ABG HCO3 ABG Hemoglobin Oxyhemoglobin Sodium Potassium Chloride Carbon Dioxide BUN Creatinine Glucose POC Glucose 184 H 216 H Lactic Acid Calcium Phosphorus Magnesium Direct Bilirubin AST ALT Alkaline Phosphatase Lactate Dehydrogenase Troponin T C-Reactive Protein Total Protein Albumin Prealbumin Triglycerides Cholesterol LDL Cholesterol Direct HDL Cholesterol Urine pH Urine WBC (Auto) Urine Creatinine Urine Total Protein Fluid Total Protein Vancomycin Trough Rheumatoid Factor Complement C4 Miscellaneous Test Crossmatch 09/09/16 09/09/16 09/09/16 03:00 03:00 04:04 WBC 27.9 H RBC Hgb 8.7 L Hct 28.1 L MCV 72 L MCH 22 L MCHC RDW 18.4 H Plt Count 485 H Lymph % (Auto) [place] % (Auto) Lymph # [place] # Baso # Seg Neutrophils % Seg Neuts % (Manual) 77.0 H Lymphocytes % (Manual) 9.0 L Monocytes % (Manual) Eosinophils % (Manual) Basophils % (Manual) Nucleated RBC % Seg Neutrophils # Seg Neutrophils # Man 21.5 H Lymphocytes # (Manual) Monocytes # (Manual) 2.0 H Eosinophils # (Manual) PT INR Fibrinogen dRVVT Confirm Interp Factor V Activity POC ABG pH POC ABG pCO2 POC ABG pO2 121 H ABG pO2 ABG HCO3 ABG Hemoglobin Oxyhemoglobin Sodium 135 L Potassium Chloride 96.3 L Carbon Dioxide 21 L BUN 83 H Creatinine 3.0 H Glucose 135 H POC Glucose Lactic Acid Calcium Phosphorus Magnesium Direct Bilirubin AST ALT Alkaline Phosphatase Lactate Dehydrogenase Troponin T C-Reactive Protein Total Protein Albumin Prealbumin Triglycerides Cholesterol LDL Cholesterol Direct HDL Cholesterol Urine pH Urine WBC (Auto) Urine Creatinine Urine Total Protein Fluid Total Protein Vancomycin Trough Rheumatoid Factor Complement C4 Miscellaneous Test Crossmatch 09/09/16 09/09/16 09/09/16 05:41 11:55 14:13 WBC RBC Hgb Hct MCV MCH MCHC RDW Plt Count Lymph % (Auto) [place] % (Auto) Lymph # [place] # Baso # Seg Neutrophils % Seg Neuts % (Manual) Lymphocytes % (Manual) Monocytes % (Manual) Eosinophils % (Manual) Basophils % (Manual) Nucleated RBC % Seg Neutrophils # Seg Neutrophils # Man Lymphocytes # (Manual) Monocytes # (Manual) Eosinophils # (Manual) PT INR Fibrinogen dRVVT Confirm Interp Factor V Activity POC ABG pH POC ABG pCO2 POC ABG pO2 ABG pO2 ABG HCO3 ABG Hemoglobin Oxyhemoglobin Sodium Potassium Chloride Carbon Dioxide BUN Creatinine Glucose POC Glucose 155 H 186 H Lactic Acid Calcium Phosphorus Magnesium Direct Bilirubin AST ALT Alkaline Phosphatase Lactate Dehydrogenase Troponin T C-Reactive Protein Total Protein Albumin Prealbumin Triglycerides Cholesterol LDL Cholesterol Direct HDL Cholesterol Urine pH Urine WBC (Auto) 25.0 H Urine Creatinine Urine Total Protein Fluid Total Protein Vancomycin Trough Rheumatoid Factor Complement C4 Miscellaneous Test Crossmatch 09/09/16 09/09/16 09/10/16 17:33 23:13 05:09 WBC RBC Hgb Hct MCV MCH MCHC RDW Plt Count Lymph % (Auto) [place] % (Auto) Lymph # [place] # Baso # Seg Neutrophils % Seg Neuts % (Manual) Lymphocytes % (Manual) Monocytes % (Manual) Eosinophils % (Manual) Basophils % (Manual) Nucleated RBC % Seg Neutrophils # Seg Neutrophils # Man Lymphocytes # (Manual) Monocytes # (Manual) Eosinophils # (Manual) PT INR Fibrinogen dRVVT Confirm Interp Factor V Activity POC ABG pH POC ABG pCO2 POC ABG pO2 74 L ABG pO2 ABG HCO3 ABG Hemoglobin Oxyhemoglobin Sodium Potassium Chloride Carbon Dioxide BUN Creatinine Glucose POC Glucose 211 H 215 H Lactic Acid Calcium Phosphorus Magnesium Direct Bilirubin AST ALT Alkaline Phosphatase Lactate Dehydrogenase Troponin T C-Reactive Protein Total Protein Albumin Prealbumin Triglycerides Cholesterol LDL Cholesterol Direct HDL Cholesterol Urine pH Urine WBC (Auto) Urine Creatinine Urine Total Protein Fluid Total Protein Vancomycin Trough Rheumatoid Factor Complement C4 Miscellaneous Test Crossmatch 09/10/16 09/10/16 09/10/16 05:17 05:17 11:31 WBC 15.8 H RBC 3.25 L Hgb 7.3 L Hct 22.9 L MCV 71 L MCH 23 L MCHC RDW 18.4 H Plt Count Lymph % (Auto) [place] % (Auto) Lymph # [place] # Baso # Seg Neutrophils % Seg Neuts % (Manual) 91.0 H Lymphocytes % (Manual) 4.0 L Monocytes % (Manual) Eosinophils % (Manual) Basophils % (Manual) Nucleated RBC % Seg Neutrophils # Seg Neutrophils # Man 14.4 H Lymphocytes # (Manual) 0.6 L Monocytes # (Manual) Eosinophils # (Manual) PT INR Fibrinogen dRVVT Confirm Interp Factor V Activity POC ABG pH POC ABG pCO2 POC ABG pO2 ABG pO2 ABG HCO3 ABG Hemoglobin Oxyhemoglobin Sodium Potassium Chloride Carbon Dioxide 21 L BUN 93 H Creatinine 2.9 H Glucose 146 H POC Glucose 188 H Lactic Acid Calcium 8.1 L Phosphorus Magnesium Direct Bilirubin AST ALT Alkaline Phosphatase Lactate Dehydrogenase Troponin T C-Reactive Protein Total Protein Albumin Prealbumin Triglycerides Cholesterol LDL Cholesterol Direct HDL Cholesterol Urine pH Urine WBC (Auto) Urine Creatinine Urine Total Protein Fluid Total Protein Vancomycin Trough Rheumatoid Factor Complement C4 Miscellaneous Test Crossmatch 09/10/16 09/10/16 09/10/16 13:17 17:20 23:32 WBC RBC Hgb Hct MCV MCH MCHC RDW Plt Count Lymph % (Auto) [place] % (Auto) Lymph # [place] # Baso # Seg Neutrophils % Seg Neuts % (Manual) Lymphocytes % (Manual) Monocytes % (Manual) Eosinophils % (Manual) Basophils % (Manual) Nucleated RBC % Seg Neutrophils # Seg Neutrophils # Man Lymphocytes # (Manual) Monocytes # (Manual) Eosinophils # (Manual) PT INR Fibrinogen dRVVT Confirm Interp Factor V Activity POC ABG pH POC ABG pCO2 POC ABG pO2 ABG pO2 ABG HCO3 ABG Hemoglobin Oxyhemoglobin Sodium Potassium Chloride Carbon Dioxide BUN Creatinine Glucose POC Glucose 199 H 186 H Lactic Acid Calcium Phosphorus Magnesium Direct Bilirubin AST ALT Alkaline Phosphatase Lactate Dehydrogenase Troponin T C-Reactive Protein Total Protein Albumin Prealbumin Triglycerides Cholesterol LDL Cholesterol Direct HDL Cholesterol Urine pH Urine WBC (Auto) Urine Creatinine Urine Total Protein Fluid Total Protein Vancomycin Trough Rheumatoid Factor Complement C4 Miscellaneous Test Crossmatch See Detail 09/11/16 09/11/16 09/11/16 05:10 05:10 05:17 WBC 28.4 H RBC Hgb 9.2 L Hct 29.3 L D MCV 73 L MCH 23 L MCHC RDW 18.9 H Plt Count 452 H Lymph % (Auto) [place] % (Auto) Lymph # [place] # Baso # Seg Neutrophils % Seg Neuts % (Manual) 89.5 H Lymphocytes % (Manual) 2.0 L Monocytes % (Manual) Eosinophils % (Manual) Basophils % (Manual) Nucleated RBC % Seg Neutrophils # Seg Neutrophils # Man 25.4 H Lymphocytes # (Manual) 0.6 L Monocytes # (Manual) 1.3 H Eosinophils # (Manual) PT INR Fibrinogen dRVVT Confirm Interp Factor V Activity POC ABG pH POC ABG pCO2 POC ABG pO2 ABG pO2 ABG HCO3 ABG Hemoglobin Oxyhemoglobin Sodium 136 L Potassium Chloride Carbon Dioxide 18 L BUN 107 H Creatinine 2.6 H Glucose 187 H POC Glucose 230 H Lactic Acid Calcium 8.3 L Phosphorus Magnesium Direct Bilirubin AST ALT Alkaline Phosphatase Lactate Dehydrogenase Troponin T C-Reactive Protein Total Protein Albumin Prealbumin Triglycerides Cholesterol LDL Cholesterol Direct HDL Cholesterol Urine pH Urine WBC (Auto) Urine Creatinine Urine Total Protein Fluid Total Protein Vancomycin Trough Rheumatoid Factor Complement C4 Miscellaneous Test Crossmatch 09/11/16 09/11/16 09/11/16 05:55 12:02 17:32 WBC RBC Hgb Hct MCV MCH MCHC RDW Plt Count Lymph % (Auto) [place] % (Auto) Lymph # [place] # Baso # Seg Neutrophils % Seg Neuts % (Manual) Lymphocytes % (Manual) Monocytes % (Manual) Eosinophils % (Manual) Basophils % (Manual) Nucleated RBC % Seg Neutrophils # Seg Neutrophils # Man Lymphocytes # (Manual) Monocytes # (Manual) Eosinophils # (Manual) PT INR Fibrinogen dRVVT Confirm Interp Factor V Activity POC ABG pH POC ABG pCO2 33.8 L POC ABG pO2 ABG pO2 ABG HCO3 ABG Hemoglobin Oxyhemoglobin Sodium Potassium Chloride Carbon Dioxide BUN Creatinine Glucose POC Glucose 191 H 239 H Lactic Acid Calcium Phosphorus Magnesium Direct Bilirubin AST ALT Alkaline Phosphatase Lactate Dehydrogenase Troponin T C-Reactive Protein Total Protein Albumin Prealbumin Triglycerides Cholesterol LDL Cholesterol Direct HDL Cholesterol Urine pH Urine WBC (Auto) Urine Creatinine Urine Total Protein Fluid Total Protein Vancomycin Trough Rheumatoid Factor Complement C4 Miscellaneous Test Crossmatch 09/11/16 09/12/16 09/12/16 23:52 05:09 05:32 WBC RBC Hgb Hct MCV MCH MCHC RDW Plt Count Lymph % (Auto) [place] % (Auto) Lymph # [place] # Baso # Seg Neutrophils % Seg Neuts % (Manual) Lymphocytes % (Manual) Monocytes % (Manual) Eosinophils % (Manual) Basophils % (Manual) Nucleated RBC % Seg Neutrophils # Seg Neutrophils # Man Lymphocytes # (Manual) Monocytes # (Manual) Eosinophils # (Manual) PT INR Fibrinogen dRVVT Confirm Interp Factor V Activity POC ABG pH POC ABG pCO2 34.6 L POC ABG pO2 ABG pO2 ABG HCO3 ABG Hemoglobin Oxyhemoglobin Sodium Potassium Chloride Carbon Dioxide BUN Creatinine Glucose POC Glucose 265 H 184 H Lactic Acid Calcium Phosphorus Magnesium Direct Bilirubin AST ALT Alkaline Phosphatase Lactate Dehydrogenase Troponin T C-Reactive Protein Total Protein Albumin Prealbumin Triglycerides Cholesterol LDL Cholesterol Direct HDL Cholesterol Urine pH Urine WBC (Auto) Urine Creatinine Urine Total Protein Fluid Total Protein Vancomycin Trough Rheumatoid Factor Complement C4 Miscellaneous Test Crossmatch 09/12/16 09/12/16 09/12/16 06:45 06:45 07:22 WBC 31.7 H RBC 3.54 L Hgb 8.3 L Hct 25.9 L MCV 73 L MCH 23 L MCHC RDW 18.9 H Plt Count Lymph % (Auto) [place] % (Auto) Lymph # [place] # Baso # Seg Neutrophils % Seg Neuts % (Manual) 88.5 H Lymphocytes % (Manual) 4.5 L Monocytes % (Manual) Eosinophils % (Manual) Basophils % (Manual) Nucleated RBC % Seg Neutrophils # Seg Neutrophils # Man 28.1 H Lymphocytes # (Manual) Monocytes # (Manual) 1.0 H Eosinophils # (Manual) PT INR Fibrinogen dRVVT Confirm Interp Factor V Activity POC ABG pH POC ABG pCO2 POC ABG pO2 ABG pO2 ABG HCO3 ABG Hemoglobin Oxyhemoglobin Sodium Potassium Chloride Carbon Dioxide 20 L BUN 115 H Creatinine 2.7 H Glucose 165 H POC Glucose Lactic Acid Calcium 8.0 L Phosphorus Magnesium Direct Bilirubin AST ALT Alkaline Phosphatase Lactate Dehydrogenase Troponin T C-Reactive Protein Total Protein Albumin Prealbumin Triglycerides 217 H Cholesterol LDL Cholesterol Direct HDL Cholesterol Urine pH Urine WBC (Auto) Urine Creatinine Urine Total Protein Fluid Total Protein Vancomycin Trough Rheumatoid Factor Complement C4 Miscellaneous Test Crossmatch 09/12/16 09/12/16 09/12/16 07:22 09:59 12:21 WBC RBC Hgb Hct MCV MCH MCHC RDW Plt Count Lymph % (Auto) [place] % (Auto) Lymph # [place] # Baso # Seg Neutrophils % Seg Neuts % (Manual) Lymphocytes % (Manual) Monocytes % (Manual) Eosinophils % (Manual) Basophils % (Manual) Nucleated RBC % Seg Neutrophils # Seg Neutrophils # Man Lymphocytes # (Manual) Monocytes # (Manual) Eosinophils # (Manual) PT INR Fibrinogen dRVVT Confirm Interp Positive H Factor V Activity POC ABG pH POC ABG pCO2 POC ABG pO2 ABG pO2 ABG HCO3 ABG Hemoglobin Oxyhemoglobin Sodium Potassium Chloride Carbon Dioxide BUN Creatinine Glucose POC Glucose 224 H Lactic Acid Calcium Phosphorus Magnesium Direct Bilirubin AST ALT Alkaline Phosphatase Lactate Dehydrogenase Troponin T C-Reactive Protein 1.70 H Total Protein Albumin Prealbumin Triglycerides Cholesterol LDL Cholesterol Direct HDL Cholesterol Urine pH Urine WBC (Auto) Urine Creatinine Urine Total Protein Fluid Total Protein Vancomycin Trough Rheumatoid Factor Complement C4 Miscellaneous Test Crossmatch 09/12/16 09/12/16 09/13/16 16:51 23:28 04:00 WBC 45.0 H* RBC Hgb 9.4 L Hct MCV 75 L MCH 23 L MCHC RDW 19.0 H Plt Count 470 H Lymph % (Auto) [place] % (Auto) Lymph # [place] # Baso # Seg Neutrophils % Seg Neuts % (Manual) 89.0 H Lymphocytes % (Manual) 5.0 L Monocytes % (Manual) Eosinophils % (Manual) Basophils % (Manual) Nucleated RBC % Seg Neutrophils # Seg Neutrophils # Man 40.1 H Lymphocytes # (Manual) Monocytes # (Manual) Eosinophils # (Manual) PT INR Fibrinogen dRVVT Confirm Interp Factor V Activity POC ABG pH POC ABG pCO2 POC ABG pO2 ABG pO2 ABG HCO3 ABG Hemoglobin Oxyhemoglobin Sodium Potassium Chloride Carbon Dioxide BUN Creatinine Glucose POC Glucose 169 H 150 H Lactic Acid Calcium Phosphorus Magnesium Direct Bilirubin AST ALT Alkaline Phosphatase Lactate Dehydrogenase Troponin T C-Reactive Protein Total Protein Albumin Prealbumin Triglycerides Cholesterol LDL Cholesterol Direct HDL Cholesterol Urine pH Urine WBC (Auto) Urine Creatinine Urine Total Protein Fluid Total Protein Vancomycin Trough Rheumatoid Factor Complement C4 Miscellaneous Test Crossmatch 09/13/16 09/13/16 09/13/16 04:00 11:26 17:31 WBC RBC Hgb Hct MCV MCH MCHC RDW Plt Count Lymph % (Auto) [place] % (Auto) Lymph # [place] # Baso # Seg Neutrophils % Seg Neuts % (Manual) Lymphocytes % (Manual) Monocytes % (Manual) Eosinophils % (Manual) Basophils % (Manual) Nucleated RBC % Seg Neutrophils # Seg Neutrophils # Man Lymphocytes # (Manual) Monocytes # (Manual) Eosinophils # (Manual) PT INR Fibrinogen dRVVT Confirm Interp Factor V Activity POC ABG pH POC ABG pCO2 POC ABG pO2 ABG pO2 ABG HCO3 ABG Hemoglobin Oxyhemoglobin Sodium Potassium Chloride Carbon Dioxide 20 L BUN 116 H Creatinine 3.0 H Glucose 172 H POC Glucose 140 H 183 H Lactic Acid Calcium Phosphorus Magnesium Direct Bilirubin AST ALT Alkaline Phosphatase Lactate Dehydrogenase Troponin T C-Reactive Protein Total Protein 6.2 L Albumin 2.9 L Prealbumin Triglycerides Cholesterol LDL Cholesterol Direct HDL Cholesterol Urine pH Urine WBC (Auto) Urine Creatinine Urine Total Protein Fluid Total Protein Vancomycin Trough Rheumatoid Factor Complement C4 Miscellaneous Test Crossmatch 09/13/16 09/14/16 09/14/16 23:23 04:06 04:07 WBC 29.4 H RBC Hgb 8.9 L Hct 27.3 L MCV 75 L MCH 24 L MCHC RDW 19.1 H Plt Count Lymph % (Auto) [place] % (Auto) Lymph # [place] # Baso # Seg Neutrophils % Seg Neuts % (Manual) 84.0 H Lymphocytes % (Manual) 6.0 L Monocytes % (Manual) 9.0 H Eosinophils % (Manual) Basophils % (Manual) Nucleated RBC % Seg Neutrophils # Seg Neutrophils # Man 24.7 H Lymphocytes # (Manual) Monocytes # (Manual) 2.6 H Eosinophils # (Manual) PT INR Fibrinogen dRVVT Confirm Interp Factor V Activity POC ABG pH 7.342 L POC ABG pCO2 POC ABG pO2 116 H ABG pO2 ABG HCO3 ABG Hemoglobin Oxyhemoglobin Sodium Potassium Chloride Carbon Dioxide BUN Creatinine Glucose POC Glucose 154 H Lactic Acid Calcium Phosphorus Magnesium Direct Bilirubin AST ALT Alkaline Phosphatase Lactate Dehydrogenase Troponin T C-Reactive Protein Total Protein Albumin Prealbumin Triglycerides Cholesterol LDL Cholesterol Direct HDL Cholesterol Urine pH Urine WBC (Auto) Urine Creatinine Urine Total Protein Fluid Total Protein Vancomycin Trough Rheumatoid Factor Complement C4 Miscellaneous Test Crossmatch 09/14/16 09/14/16 09/14/16 04:07 05:29 12:19 WBC RBC Hgb Hct MCV MCH MCHC RDW Plt Count Lymph % (Auto) [place] % (Auto) Lymph # [place] # Baso # Seg Neutrophils % Seg Neuts % (Manual) Lymphocytes % (Manual) Monocytes % (Manual) Eosinophils % (Manual) Basophils % (Manual) Nucleated RBC % Seg Neutrophils # Seg Neutrophils # Man Lymphocytes # (Manual) Monocytes # (Manual) Eosinophils # (Manual) PT INR Fibrinogen dRVVT Confirm Interp Factor V Activity POC ABG pH POC ABG pCO2 POC ABG pO2 ABG pO2 ABG HCO3 ABG Hemoglobin Oxyhemoglobin Sodium 136 L Potassium Chloride Carbon Dioxide 18 L BUN 121 H Creatinine 2.8 H Glucose 214 H POC Glucose 239 H 181 H Lactic Acid Calcium Phosphorus Magnesium Direct Bilirubin AST ALT Alkaline Phosphatase Lactate Dehydrogenase Troponin T C-Reactive Protein Total Protein Albumin Prealbumin Triglycerides Cholesterol LDL Cholesterol Direct HDL Cholesterol Urine pH Urine WBC (Auto) Urine Creatinine Urine Total Protein Fluid Total Protein Vancomycin Trough Rheumatoid Factor Complement C4 Miscellaneous Test Crossmatch 09/14/16 09/14/16 09/15/16 18:12 23:37 05:00 WBC 26.1 H RBC 3.05 L Hgb 7.2 L Hct 22.9 L MCV 75 L MCH 24 L MCHC RDW 19.0 H Plt Count Lymph % (Auto) [place] % (Auto) Lymph # [place] # Baso # Seg Neutrophils % Seg Neuts % (Manual) Lymphocytes % (Manual) Monocytes % (Manual) Eosinophils % (Manual) Basophils % (Manual) Nucleated RBC % Seg Neutrophils # Seg Neutrophils # Man Lymphocytes # (Manual) Monocytes # (Manual) Eosinophils # (Manual) PT INR Fibrinogen dRVVT Confirm Interp Factor V Activity POC ABG pH POC ABG pCO2 POC ABG pO2 ABG pO2 ABG HCO3 ABG Hemoglobin Oxyhemoglobin Sodium Potassium Chloride Carbon Dioxide BUN Creatinine Glucose POC Glucose 266 H 154 H Lactic Acid Calcium Phosphorus Magnesium Direct Bilirubin AST ALT Alkaline Phosphatase Lactate Dehydrogenase Troponin T C-Reactive Protein Total Protein Albumin Prealbumin Triglycerides Cholesterol LDL Cholesterol Direct HDL Cholesterol Urine pH Urine WBC (Auto) Urine Creatinine Urine Total Protein Fluid Total Protein Vancomycin Trough Rheumatoid Factor Complement C4 Miscellaneous Test Crossmatch 09/15/16 09/15/16 09/15/16 05:00 05:17 12:45 WBC RBC Hgb Hct MCV MCH MCHC RDW Plt Count Lymph % (Auto) [place] % (Auto) Lymph # [place] # Baso # Seg Neutrophils % Seg Neuts % (Manual) Lymphocytes % (Manual) Monocytes % (Manual) Eosinophils % (Manual) Basophils % (Manual) Nucleated RBC % Seg Neutrophils # Seg Neutrophils # Man Lymphocytes # (Manual) Monocytes # (Manual) Eosinophils # (Manual) PT INR Fibrinogen dRVVT Confirm Interp Factor V Activity POC ABG pH POC ABG pCO2 POC ABG pO2 ABG pO2 ABG HCO3 ABG Hemoglobin Oxyhemoglobin Sodium Potassium 5.2 H Chloride Carbon Dioxide 18 L BUN 139 H Creatinine 3.7 H Glucose 227 H POC Glucose 226 H 244 H Lactic Acid Calcium 8.3 L Phosphorus Magnesium Direct Bilirubin AST ALT Alkaline Phosphatase Lactate Dehydrogenase Troponin T C-Reactive Protein Total Protein Albumin Prealbumin Triglycerides Cholesterol LDL Cholesterol Direct HDL Cholesterol Urine pH Urine WBC (Auto) Urine Creatinine Urine Total Protein Fluid Total Protein Vancomycin Trough Rheumatoid Factor Complement C4 Miscellaneous Test Crossmatch 09/15/16 09/15/16 09/15/16 14:32 17:33 23:35 WBC RBC Hgb Hct MCV MCH MCHC RDW Plt Count Lymph % (Auto) [place] % (Auto) Lymph # [place] # Baso # Seg Neutrophils % Seg Neuts % (Manual) Lymphocytes % (Manual) Monocytes % (Manual) Eosinophils % (Manual) Basophils % (Manual) Nucleated RBC % Seg Neutrophils # Seg Neutrophils # Man Lymphocytes # (Manual) Monocytes # (Manual) Eosinophils # (Manual) PT INR Fibrinogen dRVVT Confirm Interp Factor V Activity POC ABG pH POC ABG pCO2 27.7 L POC ABG pO2 120 H ABG pO2 ABG HCO3 ABG Hemoglobin Oxyhemoglobin Sodium Potassium Chloride Carbon Dioxide BUN Creatinine Glucose POC Glucose 232 H 167 H Lactic Acid Calcium Phosphorus Magnesium Direct Bilirubin AST ALT Alkaline Phosphatase Lactate Dehydrogenase Troponin T C-Reactive Protein Total Protein Albumin Prealbumin Triglycerides Cholesterol LDL Cholesterol Direct HDL Cholesterol Urine pH Urine WBC (Auto) Urine Creatinine Urine Total Protein Fluid Total Protein Vancomycin Trough Rheumatoid Factor Complement C4 Miscellaneous Test Crossmatch 09/16/16 09/16/16 09/16/16 03:58 10:27 10:27 WBC 19.0 H RBC 2.77 L Hgb 6.5 L Hct 20.9 L MCV 76 L MCH 23 L MCHC RDW 19.3 H Plt Count Lymph % (Auto) 11.0 L [place] % (Auto) Lymph # [place] # 1.1 H Baso # Seg Neutrophils % 82.5 H Seg Neuts % (Manual) Lymphocytes % (Manual) Monocytes % (Manual) Eosinophils % (Manual) Basophils % (Manual) Nucleated RBC % Seg Neutrophils # 15.7 H Seg Neutrophils # Man Lymphocytes # (Manual) Monocytes # (Manual) Eosinophils # (Manual) PT INR Fibrinogen dRVVT Confirm Interp Factor V Activity POC ABG pH POC ABG pCO2 POC ABG pO2 ABG pO2 ABG HCO3 ABG Hemoglobin Oxyhemoglobin Sodium Potassium Chloride 109.3 H Carbon Dioxide 18 L BUN 139 H Creatinine 4.1 H Glucose 144 H POC Glucose 146 H Lactic Acid Calcium 8.1 L Phosphorus Magnesium Direct Bilirubin AST ALT Alkaline Phosphatase Lactate Dehydrogenase Troponin T C-Reactive Protein Total Protein Albumin Prealbumin Triglycerides Cholesterol LDL Cholesterol Direct HDL Cholesterol Urine pH Urine WBC (Auto) Urine Creatinine Urine Total Protein Fluid Total Protein Vancomycin Trough Rheumatoid Factor Complement C4 Miscellaneous Test Crossmatch 09/16/16 09/16/16 09/16/16 12:04 12:10 13:55 WBC RBC Hgb Hct MCV MCH MCHC RDW Plt Count Lymph % (Auto) [place] % (Auto) Lymph # [place] # Baso # Seg Neutrophils % Seg Neuts % (Manual) Lymphocytes % (Manual) Monocytes % (Manual) Eosinophils % (Manual) Basophils % (Manual) Nucleated RBC % Seg Neutrophils # Seg Neutrophils # Man Lymphocytes # (Manual) Monocytes # (Manual) Eosinophils # (Manual) PT INR Fibrinogen dRVVT Confirm Interp Factor V Activity POC ABG pH POC ABG pCO2 32.9 L POC ABG pO2 ABG pO2 ABG HCO3 ABG Hemoglobin Oxyhemoglobin Sodium Potassium Chloride Carbon Dioxide BUN Creatinine Glucose POC Glucose 185 H Lactic Acid Calcium Phosphorus Magnesium Direct Bilirubin AST ALT Alkaline Phosphatase Lactate Dehydrogenase Troponin T C-Reactive Protein Total Protein Albumin Prealbumin Triglycerides Cholesterol LDL Cholesterol Direct HDL Cholesterol Urine pH Urine WBC (Auto) Urine Creatinine Urine Total Protein Fluid Total Protein Vancomycin Trough Rheumatoid Factor Complement C4 Miscellaneous Test Crossmatch See Detail 09/16/16 09/16/16 09/16/16 17:55 19:19 23:48 WBC RBC Hgb Hct MCV MCH MCHC RDW Plt Count Lymph % (Auto) [place] % (Auto) Lymph # [place] # Baso # Seg Neutrophils % Seg Neuts % (Manual) Lymphocytes % (Manual) Monocytes % (Manual) Eosinophils % (Manual) Basophils % (Manual) Nucleated RBC % Seg Neutrophils # Seg Neutrophils # Man Lymphocytes # (Manual) Monocytes # (Manual) Eosinophils # (Manual) PT INR Fibrinogen dRVVT Confirm Interp Factor V Activity POC ABG pH POC ABG pCO2 POC ABG pO2 ABG pO2 ABG HCO3 ABG Hemoglobin Oxyhemoglobin Sodium Potassium Chloride Carbon Dioxide BUN Creatinine Glucose POC Glucose 222 H 107 H Lactic Acid Calcium Phosphorus Magnesium Direct Bilirubin AST ALT Alkaline Phosphatase Lactate Dehydrogenase Troponin T C-Reactive Protein Total Protein Albumin Prealbumin Triglycerides Cholesterol LDL Cholesterol Direct HDL Cholesterol Urine pH Urine WBC (Auto) Urine Creatinine 47.4 H Urine Total Protein 16 H Fluid Total Protein Vancomycin Trough Rheumatoid Factor Complement C4 Miscellaneous Test Crossmatch 09/17/16 09/17/16 09/17/16 03:45 03:45 04:55 WBC 19.6 H RBC 3.41 L Hgb 8.5 L Hct 26.7 L MCV 78 L MCH 25 L MCHC RDW 19.9 H Plt Count Lymph % (Auto) 9.3 L [place] % (Auto) Lymph # [place] # 1.2 H Baso # Seg Neutrophils % 83.9 H Seg Neuts % (Manual) Lymphocytes % (Manual) Monocytes % (Manual) Eosinophils % (Manual) Basophils % (Manual) Nucleated RBC % Seg Neutrophils # 16.4 H Seg Neutrophils # Man Lymphocytes # (Manual) Monocytes # (Manual) Eosinophils # (Manual) PT INR Fibrinogen dRVVT Confirm Interp Factor V Activity POC ABG pH POC ABG pCO2 POC ABG pO2 ABG pO2 ABG HCO3 ABG Hemoglobin Oxyhemoglobin Sodium 146 H Potassium 5.1 H Chloride 110.9 H Carbon Dioxide 16 L BUN 146 H Creatinine 4.0 H Glucose 108 H POC Glucose 133 H Lactic Acid Calcium Phosphorus Magnesium 3.00 H Direct Bilirubin AST ALT Alkaline Phosphatase Lactate Dehydrogenase Troponin T C-Reactive Protein Total Protein Albumin Prealbumin Triglycerides Cholesterol LDL Cholesterol Direct HDL Cholesterol Urine pH Urine WBC (Auto) Urine Creatinine Urine Total Protein Fluid Total Protein Vancomycin Trough Rheumatoid Factor Complement C4 Miscellaneous Test Crossmatch 09/17/16 09/17/16 09/17/16 11:15 17:33 23:47 WBC RBC Hgb Hct MCV MCH MCHC RDW Plt Count Lymph % (Auto) [place] % (Auto) Lymph # [place] # Baso # Seg Neutrophils % Seg Neuts % (Manual) Lymphocytes % (Manual) Monocytes % (Manual) Eosinophils % (Manual) Basophils % (Manual) Nucleated RBC % Seg Neutrophils # Seg Neutrophils # Man Lymphocytes # (Manual) Monocytes # (Manual) Eosinophils # (Manual) PT INR Fibrinogen dRVVT Confirm Interp Factor V Activity POC ABG pH POC ABG pCO2 POC ABG pO2 ABG pO2 ABG HCO3 ABG Hemoglobin Oxyhemoglobin Sodium Potassium Chloride Carbon Dioxide BUN Creatinine Glucose POC Glucose 176 H 246 H 148 H Lactic Acid Calcium Phosphorus Magnesium Direct Bilirubin AST ALT Alkaline Phosphatase Lactate Dehydrogenase Troponin T C-Reactive Protein Total Protein Albumin Prealbumin Triglycerides Cholesterol LDL Cholesterol Direct HDL Cholesterol Urine pH Urine WBC (Auto) Urine Creatinine Urine Total Protein Fluid Total Protein Vancomycin Trough Rheumatoid Factor Complement C4 Miscellaneous Test Crossmatch 09/18/16 09/18/16 09/18/16 05:33 08:31 08:31 WBC 18.0 H RBC 3.17 L Hgb 9.0 L Hct 25.7 L MCV MCH MCHC 35 H RDW 20.4 H Plt Count Lymph % (Auto) [place] % (Auto) Lymph # [place] # Baso # Seg Neutrophils % Seg Neuts % (Manual) Lymphocytes % (Manual) Monocytes % (Manual) Eosinophils % (Manual) Basophils % (Manual) Nucleated RBC % Seg Neutrophils # Seg Neutrophils # Man Lymphocytes # (Manual) Monocytes # (Manual) Eosinophils # (Manual) PT INR Fibrinogen dRVVT Confirm Interp Factor V Activity POC ABG pH POC ABG pCO2 POC ABG pO2 ABG pO2 ABG HCO3 ABG Hemoglobin Oxyhemoglobin Sodium Potassium Chloride Carbon Dioxide 15 L BUN 124 H Creatinine 3.8 H Glucose POC Glucose 120 H Lactic Acid Calcium 8.1 L Phosphorus Magnesium Direct Bilirubin AST ALT Alkaline Phosphatase Lactate Dehydrogenase Troponin T C-Reactive Protein Total Protein Albumin Prealbumin Triglycerides Cholesterol LDL Cholesterol Direct HDL Cholesterol Urine pH Urine WBC (Auto) Urine Creatinine Urine Total Protein Fluid Total Protein Vancomycin Trough Rheumatoid Factor Complement C4 Miscellaneous Test Crossmatch 09/18/16 09/18/16 09/18/16 12:03 15:34 17:50 WBC RBC Hgb Hct MCV MCH MCHC RDW Plt Count Lymph % (Auto) [place] % (Auto) Lymph # [place] # Baso # Seg Neutrophils % Seg Neuts % (Manual) Lymphocytes % (Manual) Monocytes % (Manual) Eosinophils % (Manual) Basophils % (Manual) Nucleated RBC % Seg Neutrophils # Seg Neutrophils # Man Lymphocytes # (Manual) Monocytes # (Manual) Eosinophils # (Manual) PT INR Fibrinogen dRVVT Confirm Interp Factor V Activity POC ABG pH POC ABG pCO2 25.7 L POC ABG pO2 66 L ABG pO2 ABG HCO3 ABG Hemoglobin Oxyhemoglobin Sodium Potassium Chloride Carbon Dioxide BUN Creatinine Glucose POC Glucose 156 H 220 H Lactic Acid Calcium Phosphorus Magnesium Direct Bilirubin AST ALT Alkaline Phosphatase Lactate Dehydrogenase Troponin T C-Reactive Protein Total Protein Albumin Prealbumin Triglycerides Cholesterol LDL Cholesterol Direct HDL Cholesterol Urine pH Urine WBC (Auto) Urine Creatinine Urine Total Protein Fluid Total Protein Vancomycin Trough Rheumatoid Factor Complement C4 Miscellaneous Test Crossmatch 09/19/16 09/19/16 09/19/16 06:21 09:50 09:50 WBC 17.1 H RBC 3.49 L Hgb 9.0 L Hct 28.1 L MCV MCH 26 L MCHC RDW 20.8 H Plt Count Lymph % (Auto) 11.5 L [place] % (Auto) 7.5 H Lymph # [place] # 1.3 H Baso # Seg Neutrophils % 79.8 H Seg Neuts % (Manual) Lymphocytes % (Manual) Monocytes % (Manual) Eosinophils % (Manual) Basophils % (Manual) Nucleated RBC % Seg Neutrophils # 13.7 H Seg Neutrophils # Man Lymphocytes # (Manual) Monocytes # (Manual) Eosinophils # (Manual) PT INR Fibrinogen dRVVT Confirm Interp Factor V Activity POC ABG pH POC ABG pCO2 POC ABG pO2 ABG pO2 ABG HCO3 ABG Hemoglobin Oxyhemoglobin Sodium Potassium Chloride 108.6 H Carbon Dioxide 15 L BUN 125 H Creatinine 4.1 H Glucose 124 H POC Glucose 119 H Lactic Acid Calcium Phosphorus Magnesium Direct Bilirubin AST ALT Alkaline Phosphatase Lactate Dehydrogenase Troponin T C-Reactive Protein Total Protein Albumin Prealbumin Triglycerides Cholesterol LDL Cholesterol Direct HDL Cholesterol Urine pH Urine WBC (Auto) Urine Creatinine Urine Total Protein Fluid Total Protein Vancomycin Trough Rheumatoid Factor Complement C4 Miscellaneous Test Crossmatch 09/19/16 09/19/16 09/19/16 11:25 17:53 23:36 WBC RBC Hgb Hct MCV MCH MCHC RDW Plt Count Lymph % (Auto) [place] % (Auto) Lymph # [place] # Baso # Seg Neutrophils % Seg Neuts % (Manual) Lymphocytes % (Manual) Monocytes % (Manual) Eosinophils % (Manual) Basophils % (Manual) Nucleated RBC % Seg Neutrophils # Seg Neutrophils # Man Lymphocytes # (Manual) Monocytes # (Manual) Eosinophils # (Manual) PT INR Fibrinogen dRVVT Confirm Interp Factor V Activity POC ABG pH POC ABG pCO2 POC ABG pO2 ABG pO2 ABG HCO3 ABG Hemoglobin Oxyhemoglobin Sodium Potassium Chloride Carbon Dioxide BUN Creatinine Glucose POC Glucose 160 H 245 H 121 H Lactic Acid Calcium Phosphorus Magnesium Direct Bilirubin AST ALT Alkaline Phosphatase Lactate Dehydrogenase Troponin T C-Reactive Protein Total Protein Albumin Prealbumin Triglycerides Cholesterol LDL Cholesterol Direct HDL Cholesterol Urine pH Urine WBC (Auto) Urine Creatinine Urine Total Protein Fluid Total Protein Vancomycin Trough Rheumatoid Factor Complement C4 Miscellaneous Test Crossmatch 09/20/16 09/20/16 09/20/16 04:10 04:10 04:10 WBC 17.0 H RBC 3.21 L Hgb 8.2 L Hct 25.5 L MCV MCH 26 L MCHC RDW 20.9 H Plt Count Lymph % (Auto) [place] % (Auto) Lymph # [place] # Baso # Seg Neutrophils % Seg Neuts % (Manual) Lymphocytes % (Manual) Monocytes % (Manual) Eosinophils % (Manual) Basophils % (Manual) Nucleated RBC % Seg Neutrophils # Seg Neutrophils # Man Lymphocytes # (Manual) Monocytes # (Manual) Eosinophils # (Manual) PT INR Fibrinogen dRVVT Confirm Interp Factor V Activity POC ABG pH POC ABG pCO2 POC ABG pO2 ABG pO2 ABG HCO3 ABG Hemoglobin Oxyhemoglobin Sodium Potassium Chloride 111.0 H Carbon Dioxide 16 L BUN 129 H Creatinine 3.7 H Glucose 115 H POC Glucose Lactic Acid Calcium 8.2 L Phosphorus Magnesium Direct Bilirubin AST ALT Alkaline Phosphatase Lactate Dehydrogenase Troponin T C-Reactive Protein Total Protein Albumin Prealbumin Triglycerides 243 H Cholesterol LDL Cholesterol Direct HDL Cholesterol Urine pH Urine WBC (Auto) Urine Creatinine Urine Total Protein Fluid Total Protein Vancomycin Trough Rheumatoid Factor Complement C4 Miscellaneous Test Crossmatch 09/20/16 09/20/16 09/20/16 05:40 11:52 16:50 WBC RBC Hgb Hct MCV MCH MCHC RDW Plt Count Lymph % (Auto) [place] % (Auto) Lymph # [place] # Baso # Seg Neutrophils % Seg Neuts % (Manual) Lymphocytes % (Manual) Monocytes % (Manual) Eosinophils % (Manual) Basophils % (Manual) Nucleated RBC % Seg Neutrophils # Seg Neutrophils # Man Lymphocytes # (Manual) Monocytes # (Manual) Eosinophils # (Manual) PT INR Fibrinogen dRVVT Confirm Interp Factor V Activity POC ABG pH POC ABG pCO2 POC ABG pO2 ABG pO2 ABG HCO3 ABG Hemoglobin Oxyhemoglobin Sodium Potassium Chloride Carbon Dioxide BUN Creatinine Glucose POC Glucose 131 H 183 H 236 H Lactic Acid Calcium Phosphorus Magnesium Direct Bilirubin AST ALT Alkaline Phosphatase Lactate Dehydrogenase Troponin T C-Reactive Protein Total Protein Albumin Prealbumin Triglycerides Cholesterol LDL Cholesterol Direct HDL Cholesterol Urine pH Urine WBC (Auto) Urine Creatinine Urine Total Protein Fluid Total Protein Vancomycin Trough Rheumatoid Factor Complement C4 Miscellaneous Test Crossmatch 09/20/16 09/21/16 09/21/16 23:51 03:30 04:44 WBC RBC Hgb Hct MCV MCH MCHC RDW Plt Count Lymph % (Auto) [place] % (Auto) Lymph # [place] # Baso # Seg Neutrophils % Seg Neuts % (Manual) Lymphocytes % (Manual) Monocytes % (Manual) Eosinophils % (Manual) Basophils % (Manual) Nucleated RBC % Seg Neutrophils # Seg Neutrophils # Man Lymphocytes # (Manual) Monocytes # (Manual) Eosinophils # (Manual) PT INR Fibrinogen dRVVT Confirm Interp Factor V Activity POC ABG pH POC ABG pCO2 POC ABG pO2 ABG pO2 ABG HCO3 ABG Hemoglobin Oxyhemoglobin Sodium Potassium Chloride Carbon Dioxide BUN Creatinine Glucose POC Glucose 114 H 141 H Lactic Acid Calcium Phosphorus Magnesium 2.70 H Direct Bilirubin AST ALT Alkaline Phosphatase Lactate Dehydrogenase Troponin T C-Reactive Protein Total Protein Albumin Prealbumin Triglycerides Cholesterol LDL Cholesterol Direct HDL Cholesterol Urine pH Urine WBC (Auto) Urine Creatinine Urine Total Protein Fluid Total Protein Vancomycin Trough Rheumatoid Factor Complement C4 Miscellaneous Test Crossmatch 09/21/16 09/21/16 09/21/16 07:45 07:45 10:01 WBC 13.8 H RBC 2.94 L Hgb 7.5 L Hct 23.5 L MCV MCH 26 L MCHC RDW 21.2 H Plt Count Lymph % (Auto) 6.9 L [place] % (Auto) 9.4 H Lymph # 0.9 L [place] # 1.3 H Baso # Seg Neutrophils % 83.2 H Seg Neuts % (Manual) Lymphocytes % (Manual) Monocytes % (Manual) Eosinophils % (Manual) Basophils % (Manual) Nucleated RBC % Seg Neutrophils # 11.5 H Seg Neutrophils # Man Lymphocytes # (Manual) Monocytes # (Manual) Eosinophils # (Manual) PT INR Fibrinogen dRVVT Confirm Interp Factor V Activity POC ABG pH 7.308 L POC ABG pCO2 31.9 L POC ABG pO2 148 H ABG pO2 ABG HCO3 ABG Hemoglobin Oxyhemoglobin Sodium 147 H Potassium Chloride 114.2 H Carbon Dioxide 15 L BUN 120 H Creatinine 3.9 H Glucose 156 H POC Glucose Lactic Acid Calcium 8.2 L Phosphorus Magnesium Direct Bilirubin AST ALT Alkaline Phosphatase Lactate Dehydrogenase Troponin T C-Reactive Protein Total Protein Albumin Prealbumin Triglycerides Cholesterol LDL Cholesterol Direct HDL Cholesterol Urine pH Urine WBC (Auto) Urine Creatinine Urine Total Protein Fluid Total Protein Vancomycin Trough Rheumatoid Factor Complement C4 Miscellaneous Test Crossmatch 09/21/16 09/21/16 09/21/16 12:00 12:03 13:00 WBC RBC Hgb Hct MCV MCH MCHC RDW Plt Count Lymph % (Auto) [place] % (Auto) Lymph # [place] # Baso # Seg Neutrophils % Seg Neuts % (Manual) Lymphocytes % (Manual) Monocytes % (Manual) Eosinophils % (Manual) Basophils % (Manual) Nucleated RBC % Seg Neutrophils # Seg Neutrophils # Man Lymphocytes # (Manual) Monocytes # (Manual) Eosinophils # (Manual) PT INR Fibrinogen dRVVT Confirm Interp Factor V Activity POC ABG pH POC ABG pCO2 POC ABG pO2 ABG pO2 ABG HCO3 ABG Hemoglobin Oxyhemoglobin Sodium Potassium Chloride Carbon Dioxide BUN Creatinine Glucose POC Glucose 163 H Lactic Acid Calcium Phosphorus Magnesium Direct Bilirubin AST ALT Alkaline Phosphatase Lactate Dehydrogenase Troponin T C-Reactive Protein Total Protein Albumin Prealbumin Triglycerides Cholesterol LDL Cholesterol Direct HDL Cholesterol Urine pH Urine WBC (Auto) Urine Creatinine 54.8 H Urine Total Protein Fluid Total Protein Vancomycin Trough 2.3 L Rheumatoid Factor Complement C4 Miscellaneous Test Crossmatch 09/21/16 09/21/16 09/22/16 16:51 23:17 06:27 WBC RBC Hgb Hct MCV MCH MCHC RDW Plt Count Lymph % (Auto) [place] % (Auto) Lymph # [place] # Baso # Seg Neutrophils % Seg Neuts % (Manual) Lymphocytes % (Manual) Monocytes % (Manual) Eosinophils % (Manual) Basophils % (Manual) Nucleated RBC % Seg Neutrophils # Seg Neutrophils # Man Lymphocytes # (Manual) Monocytes # (Manual) Eosinophils # (Manual) PT INR Fibrinogen dRVVT Confirm Interp Factor V Activity POC ABG pH POC ABG pCO2 POC ABG pO2 ABG pO2 ABG HCO3 ABG Hemoglobin Oxyhemoglobin Sodium Potassium Chloride Carbon Dioxide BUN Creatinine Glucose POC Glucose 206 H 114 H 115 H Lactic Acid Calcium Phosphorus Magnesium Direct Bilirubin AST ALT Alkaline Phosphatase Lactate Dehydrogenase Troponin T C-Reactive Protein Total Protein Albumin Prealbumin Triglycerides Cholesterol LDL Cholesterol Direct HDL Cholesterol Urine pH Urine WBC (Auto) Urine Creatinine Urine Total Protein Fluid Total Protein Vancomycin Trough Rheumatoid Factor Complement C4 Miscellaneous Test Crossmatch 09/22/16 09/22/16 09/22/16 07:50 07:50 12:00 WBC 17.8 H RBC 3.04 L Hgb 8.0 L Hct 24.7 L MCV MCH 26 L MCHC RDW 21.6 H Plt Count Lymph % (Auto) [place] % (Auto) Lymph # [place] # Baso # Seg Neutrophils % Seg Neuts % (Manual) Lymphocytes % (Manual) Monocytes % (Manual) Eosinophils % (Manual) Basophils % (Manual) Nucleated RBC % Seg Neutrophils # Seg Neutrophils # Man Lymphocytes # (Manual) Monocytes # (Manual) Eosinophils # (Manual) PT INR Fibrinogen dRVVT Confirm Interp Factor V Activity POC ABG pH POC ABG pCO2 POC ABG pO2 ABG pO2 ABG HCO3 ABG Hemoglobin Oxyhemoglobin Sodium 150 H Potassium Chloride 118.2 H Carbon Dioxide 14 L BUN 111 H Creatinine 3.7 H Glucose 157 H POC Glucose 183 H Lactic Acid Calcium Phosphorus Magnesium Direct Bilirubin AST ALT Alkaline Phosphatase Lactate Dehydrogenase Troponin T C-Reactive Protein Total Protein Albumin Prealbumin Triglycerides Cholesterol LDL Cholesterol Direct HDL Cholesterol Urine pH Urine WBC (Auto) Urine Creatinine Urine Total Protein Fluid Total Protein Vancomycin Trough Rheumatoid Factor Complement C4 Miscellaneous Test Crossmatch 09/22/16 09/22/16 09/23/16 17:29 23:10 05:00 WBC 19.2 H RBC 3.13 L Hgb 8.0 L Hct 25.2 L MCV MCH 26 L MCHC RDW 22.1 H Plt Count Lymph % (Auto) [place] % (Auto) Lymph # [place] # Baso # Seg Neutrophils % Seg Neuts % (Manual) 92.0 H Lymphocytes % (Manual) 3.0 L Monocytes % (Manual) Eosinophils % (Manual) Basophils % (Manual) Nucleated RBC % Seg Neutrophils # Seg Neutrophils # Man 17.7 H Lymphocytes # (Manual) 0.6 L Monocytes # (Manual) Eosinophils # (Manual) PT INR Fibrinogen dRVVT Confirm Interp Factor V Activity POC ABG pH POC ABG pCO2 POC ABG pO2 ABG pO2 ABG HCO3 ABG Hemoglobin Oxyhemoglobin Sodium Potassium Chloride Carbon Dioxide BUN Creatinine Glucose POC Glucose 197 H 169 H Lactic Acid Calcium Phosphorus Magnesium Direct Bilirubin AST ALT Alkaline Phosphatase Lactate Dehydrogenase Troponin T C-Reactive Protein Total Protein Albumin Prealbumin Triglycerides Cholesterol LDL Cholesterol Direct HDL Cholesterol Urine pH Urine WBC (Auto) Urine Creatinine Urine Total Protein Fluid Total Protein Vancomycin Trough Rheumatoid Factor Complement C4 Miscellaneous Test Crossmatch 09/23/16 09/23/16 09/23/16 05:00 05:00 05:10 WBC RBC Hgb Hct MCV MCH MCHC RDW Plt Count Lymph % (Auto) [place] % (Auto) Lymph # [place] # Baso # Seg Neutrophils % Seg Neuts % (Manual) Lymphocytes % (Manual) Monocytes % (Manual) Eosinophils % (Manual) Basophils % (Manual) Nucleated RBC % Seg Neutrophils # Seg Neutrophils # Man Lymphocytes # (Manual) Monocytes # (Manual) Eosinophils # (Manual) PT INR Fibrinogen dRVVT Confirm Interp Factor V Activity POC ABG pH POC ABG pCO2 POC ABG pO2 ABG pO2 ABG HCO3 ABG Hemoglobin Oxyhemoglobin Sodium 147 H Potassium 3.2 L Chloride 115.7 H Carbon Dioxide 13 L BUN 111 H Creatinine 3.8 H Glucose 194 H POC Glucose 188 H Lactic Acid Calcium 7.3 L D Phosphorus Magnesium Direct Bilirubin AST ALT Alkaline Phosphatase Lactate Dehydrogenase Troponin T C-Reactive Protein 3.20 H Total Protein Albumin Prealbumin Triglycerides Cholesterol LDL Cholesterol Direct HDL Cholesterol Urine pH Urine WBC (Auto) Urine Creatinine Urine Total Protein Fluid Total Protein Vancomycin Trough Rheumatoid Factor Complement C4 Miscellaneous Test Crossmatch 09/23/16 09/23/16 09/23/16 11:37 12:29 18:01 WBC RBC Hgb Hct MCV MCH MCHC RDW Plt Count Lymph % (Auto) [place] % (Auto) Lymph # [place] # Baso # Seg Neutrophils % Seg Neuts % (Manual) Lymphocytes % (Manual) Monocytes % (Manual) Eosinophils % (Manual) Basophils % (Manual) Nucleated RBC % Seg Neutrophils # Seg Neutrophils # Man Lymphocytes # (Manual) Monocytes # (Manual) Eosinophils # (Manual) PT INR Fibrinogen dRVVT Confirm Interp Factor V Activity POC ABG pH POC ABG pCO2 18.9 L POC ABG pO2 143 H ABG pO2 ABG HCO3 ABG Hemoglobin Oxyhemoglobin Sodium Potassium Chloride Carbon Dioxide BUN Creatinine Glucose POC Glucose 153 H 108 H Lactic Acid Calcium Phosphorus Magnesium Direct Bilirubin AST ALT Alkaline Phosphatase Lactate Dehydrogenase Troponin T C-Reactive Protein Total Protein Albumin Prealbumin Triglycerides Cholesterol LDL Cholesterol Direct HDL Cholesterol Urine pH Urine WBC (Auto) Urine Creatinine Urine Total Protein Fluid Total Protein Vancomycin Trough Rheumatoid Factor Complement C4 Miscellaneous Test Crossmatch 09/23/16 09/23/16 09/24/16 21:19 23:43 05:16 WBC RBC Hgb Hct MCV MCH MCHC RDW Plt Count Lymph % (Auto) [place] % (Auto) Lymph # [place] # Baso # Seg Neutrophils % Seg Neuts % (Manual) Lymphocytes % (Manual) Monocytes % (Manual) Eosinophils % (Manual) Basophils % (Manual) Nucleated RBC % Seg Neutrophils # Seg Neutrophils # Man Lymphocytes # (Manual) Monocytes # (Manual) Eosinophils # (Manual) PT INR Fibrinogen dRVVT Confirm Interp Factor V Activity POC ABG pH POC ABG pCO2 17.3 L POC ABG pO2 112 H ABG pO2 ABG HCO3 ABG Hemoglobin Oxyhemoglobin Sodium Potassium Chloride Carbon Dioxide BUN Creatinine Glucose POC Glucose 143 H 164 H Lactic Acid Calcium Phosphorus Magnesium Direct Bilirubin AST ALT Alkaline Phosphatase Lactate Dehydrogenase Troponin T C-Reactive Protein Total Protein Albumin Prealbumin Triglycerides Cholesterol LDL Cholesterol Direct HDL Cholesterol Urine pH Urine WBC (Auto) Urine Creatinine Urine Total Protein Fluid Total Protein Vancomycin Trough Rheumatoid Factor Complement C4 Miscellaneous Test Crossmatch 09/24/16 09/24/16 09/24/16 05:21 11:58 17:06 WBC RBC Hgb Hct MCV MCH MCHC RDW Plt Count Lymph % (Auto) [place] % (Auto) Lymph # [place] # Baso # Seg Neutrophils % Seg Neuts % (Manual) Lymphocytes % (Manual) Monocytes % (Manual) Eosinophils % (Manual) Basophils % (Manual) Nucleated RBC % Seg Neutrophils # Seg Neutrophils # Man Lymphocytes # (Manual) Monocytes # (Manual) Eosinophils # (Manual) PT INR Fibrinogen dRVVT Confirm Interp Factor V Activity POC ABG pH POC ABG pCO2 POC ABG pO2 ABG pO2 ABG HCO3 ABG Hemoglobin Oxyhemoglobin Sodium Potassium Chloride Carbon Dioxide 10 L BUN 103 H Creatinine 4.3 H Glucose 163 H POC Glucose 173 H 167 H Lactic Acid Calcium 6.5 L Phosphorus Magnesium Direct Bilirubin AST ALT Alkaline Phosphatase Lactate Dehydrogenase Troponin T C-Reactive Protein Total Protein Albumin Prealbumin Triglycerides Cholesterol LDL Cholesterol Direct HDL Cholesterol Urine pH Urine WBC (Auto) Urine Creatinine Urine Total Protein Fluid Total Protein Vancomycin Trough Rheumatoid Factor Complement C4 Miscellaneous Test Crossmatch 09/24/16 09/24/16 09/24/16 20:15 21:02 23:48 WBC RBC Hgb Hct MCV MCH MCHC RDW Plt Count Lymph % (Auto) [place] % (Auto) Lymph # [place] # Baso # Seg Neutrophils % Seg Neuts % (Manual) Lymphocytes % (Manual) Monocytes % (Manual) Eosinophils % (Manual) Basophils % (Manual) Nucleated RBC % Seg Neutrophils # Seg Neutrophils # Man Lymphocytes # (Manual) Monocytes # (Manual) Eosinophils # (Manual) PT INR Fibrinogen dRVVT Confirm Interp Factor V Activity POC ABG pH 7.288 L POC ABG pCO2 30.2 L 21.5 L POC ABG pO2 32 L 39 L ABG pO2 ABG HCO3 ABG Hemoglobin Oxyhemoglobin Sodium Potassium Chloride Carbon Dioxide BUN Creatinine Glucose POC Glucose 109 H Lactic Acid Calcium Phosphorus Magnesium Direct Bilirubin AST ALT Alkaline Phosphatase Lactate Dehydrogenase Troponin T C-Reactive Protein Total Protein Albumin Prealbumin Triglycerides Cholesterol LDL Cholesterol Direct HDL Cholesterol Urine pH Urine WBC (Auto) Urine Creatinine Urine Total Protein Fluid Total Protein Vancomycin Trough Rheumatoid Factor Complement C4 Miscellaneous Test Crossmatch 09/25/16 09/25/16 09/25/16 04:20 04:20 04:20 WBC RBC 2.58 L Hgb 7.0 L Hct 21.0 L MCV MCH 27 L MCHC RDW 23.8 H Plt Count Lymph % (Auto) [place] % (Auto) Lymph # [place] # Baso # Seg Neutrophils % Seg Neuts % (Manual) Lymphocytes % (Manual) 12.0 L Monocytes % (Manual) Eosinophils % (Manual) 7.0 H Basophils % (Manual) 2.0 H Nucleated RBC % Seg Neutrophils # Seg Neutrophils # Man Lymphocytes # (Manual) 0.9 L Monocytes # (Manual) Eosinophils # (Manual) 0.5 H PT INR Fibrinogen dRVVT Confirm Interp Factor V Activity POC ABG pH POC ABG pCO2 POC ABG pO2 ABG pO2 ABG HCO3 ABG Hemoglobin Oxyhemoglobin Sodium Potassium Chloride Carbon Dioxide 15 L BUN 72 H Creatinine 3.8 H Glucose POC Glucose Lactic Acid Calcium 6.0 L Phosphorus 4.60 H Magnesium 1.60 L Direct Bilirubin AST ALT Alkaline Phosphatase Lactate Dehydrogenase Troponin T C-Reactive Protein Total Protein Albumin Prealbumin Triglycerides Cholesterol LDL Cholesterol Direct HDL Cholesterol Urine pH Urine WBC (Auto) Urine Creatinine Urine Total Protein Fluid Total Protein Vancomycin Trough Rheumatoid Factor Complement C4 Miscellaneous Test Crossmatch 09/25/16 09/25/16 09/25/16 04:57 08:02 10:30 WBC RBC Hgb Hct MCV MCH MCHC RDW Plt Count Lymph % (Auto) [place] % (Auto) Lymph # [place] # Baso # Seg Neutrophils % Seg Neuts % (Manual) Lymphocytes % (Manual) Monocytes % (Manual) Eosinophils % (Manual) Basophils % (Manual) Nucleated RBC % Seg Neutrophils # Seg Neutrophils # Man Lymphocytes # (Manual) Monocytes # (Manual) Eosinophils # (Manual) PT INR Fibrinogen dRVVT Confirm Interp Factor V Activity POC ABG pH POC ABG pCO2 24.7 L POC ABG pO2 152 H ABG pO2 ABG HCO3 ABG Hemoglobin Oxyhemoglobin Sodium Potassium Chloride Carbon Dioxide BUN Creatinine Glucose POC Glucose 113 H Lactic Acid Calcium Phosphorus Magnesium Direct Bilirubin AST ALT Alkaline Phosphatase Lactate Dehydrogenase Troponin T C-Reactive Protein Total Protein Albumin Prealbumin Triglycerides Cholesterol LDL Cholesterol Direct HDL Cholesterol Urine pH Urine WBC (Auto) Urine Creatinine Urine Total Protein Fluid Total Protein Vancomycin Trough Rheumatoid Factor Complement C4 Miscellaneous Test Crossmatch See Detail 09/25/16 09/25/16 09/25/16 12:05 17:44 23:47 WBC RBC Hgb Hct MCV MCH MCHC RDW Plt Count Lymph % (Auto) [place] % (Auto) Lymph # [place] # Baso # Seg Neutrophils % Seg Neuts % (Manual) Lymphocytes % (Manual) Monocytes % (Manual) Eosinophils % (Manual) Basophils % (Manual) Nucleated RBC % Seg Neutrophils # Seg Neutrophils # Man Lymphocytes # (Manual) Monocytes # (Manual) Eosinophils # (Manual) PT INR Fibrinogen dRVVT Confirm Interp Factor V Activity POC ABG pH POC ABG pCO2 POC ABG pO2 ABG pO2 ABG HCO3 ABG Hemoglobin Oxyhemoglobin Sodium Potassium Chloride Carbon Dioxide BUN Creatinine Glucose POC Glucose 117 H 119 H 150 H Lactic Acid Calcium Phosphorus Magnesium Direct Bilirubin AST ALT Alkaline Phosphatase Lactate Dehydrogenase Troponin T C-Reactive Protein Total Protein Albumin Prealbumin Triglycerides Cholesterol LDL Cholesterol Direct HDL Cholesterol Urine pH Urine WBC (Auto) Urine Creatinine Urine Total Protein Fluid Total Protein Vancomycin Trough Rheumatoid Factor Complement C4 Miscellaneous Test Crossmatch 09/26/16 09/26/16 09/26/16 04:25 04:25 04:25 WBC RBC 2.65 L Hgb 7.4 L Hct 21.6 L MCV MCH MCHC RDW 22.5 H Plt Count Lymph % (Auto) [place] % (Auto) Lymph # [place] # Baso # Seg Neutrophils % Seg Neuts % (Manual) Lymphocytes % (Manual) 6.0 L Monocytes % (Manual) Eosinophils % (Manual) 11.0 H Basophils % (Manual) Nucleated RBC % Seg Neutrophils # Seg Neutrophils # Man Lymphocytes # (Manual) 0.4 L Monocytes # (Manual) Eosinophils # (Manual) 0.6 H PT INR Fibrinogen dRVVT Confirm Interp Factor V Activity POC ABG pH POC ABG pCO2 POC ABG pO2 ABG pO2 ABG HCO3 ABG Hemoglobin Oxyhemoglobin Sodium Potassium Chloride 97.0 L Carbon Dioxide 19 L BUN 43 H Creatinine 2.6 H Glucose 130 H POC Glucose Lactic Acid 4.40 H* Calcium 6.7 L Phosphorus Magnesium Direct Bilirubin AST ALT Alkaline Phosphatase Lactate Dehydrogenase Troponin T C-Reactive Protein Total Protein Albumin Prealbumin Triglycerides Cholesterol LDL Cholesterol Direct HDL Cholesterol Urine pH Urine WBC (Auto) Urine Creatinine Urine Total Protein Fluid Total Protein Vancomycin Trough Rheumatoid Factor Complement C4 Miscellaneous Test Crossmatch 09/26/16 09/26/16 09/26/16 05:20 11:44 12:12 WBC RBC Hgb Hct MCV MCH MCHC RDW Plt Count Lymph % (Auto) [place] % (Auto) Lymph # [place] # [place] # Seg Neutrophils % Seg Neuts % (Manual) Lymphocytes % (Manual) Monocytes % (Manual) Eosinophils % (Manual) Basophils % (Manual) Nucleated RBC % Seg Neutrophils # Seg Neutrophils # Man Lymphocytes # (Manual) Monocytes # (Manual) Eosinophils # (Manual) PT INR Fibrinogen dRVVT Confirm Interp Factor V Activity POC ABG pH POC ABG pCO2 27.0 L POC ABG pO2 69 L ABG pO2 ABG HCO3 ABG Hemoglobin Oxyhemoglobin Sodium Potassium Chloride Carbon Dioxide BUN Creatinine Glucose POC Glucose 121 H 128 H Lactic Acid Calcium Phosphorus Magnesium Direct Bilirubin AST ALT Alkaline Phosphatase Lactate Dehydrogenase Troponin T C-Reactive Protein Total Protein Albumin Prealbumin Triglycerides Cholesterol LDL Cholesterol Direct HDL Cholesterol Urine pH Urine WBC (Auto) Urine Creatinine Urine Total Protein Fluid Total Protein Vancomycin Trough Rheumatoid Factor Complement C4 Miscellaneous Test Crossmatch 09/26/16 09/26/16 09/27/16 18:31 23:40 08:20 WBC RBC Hgb Hct MCV MCH MCHC RDW Plt Count Lymph % (Auto) [place] % (Auto) Lymph # [place] # [place] # Seg Neutrophils % Seg Neuts % (Manual) Lymphocytes % (Manual) Monocytes % (Manual) Eosinophils % (Manual) Basophils % (Manual) Nucleated RBC % Seg Neutrophils # Seg Neutrophils # Man Lymphocytes # (Manual) Monocytes # (Manual) Eosinophils # (Manual) PT INR Fibrinogen dRVVT Confirm Interp Factor V Activity POC ABG pH POC ABG pCO2 POC ABG pO2 ABG pO2 ABG HCO3 ABG Hemoglobin Oxyhemoglobin Sodium Potassium Chloride Carbon Dioxide BUN Creatinine Glucose POC Glucose 120 H 133 H Lactic Acid 4.10 H* Calcium Phosphorus Magnesium Direct Bilirubin AST ALT Alkaline Phosphatase Lactate Dehydrogenase Troponin T C-Reactive Protein Total Protein Albumin Prealbumin Triglycerides Cholesterol LDL Cholesterol Direct HDL Cholesterol Urine pH Urine WBC (Auto) Urine Creatinine Urine Total Protein Fluid Total Protein Vancomycin Trough Rheumatoid Factor Complement C4 Miscellaneous Test Crossmatch 09/27/16 09/27/16 09/27/16 11:23 15:00 18:15 WBC RBC Hgb Hct MCV MCH MCHC RDW Plt Count Lymph % (Auto) [place] % (Auto) Lymph # [place] # Baso # Seg Neutrophils % Seg Neuts % (Manual) Lymphocytes % (Manual) Monocytes % (Manual) Eosinophils % (Manual) Basophils % (Manual) Nucleated RBC % Seg Neutrophils # Seg Neutrophils # Man Lymphocytes # (Manual) Monocytes # (Manual) Eosinophils # (Manual) PT INR Fibrinogen dRVVT Confirm Interp Factor V Activity POC ABG pH 7.459 H POC ABG pCO2 27.1 L POC ABG pO2 140 H ABG pO2 ABG HCO3 ABG Hemoglobin Oxyhemoglobin Sodium Potassium Chloride Carbon Dioxide BUN Creatinine Glucose POC Glucose 114 H 127 H Lactic Acid Calcium Phosphorus Magnesium Direct Bilirubin AST ALT Alkaline Phosphatase Lactate Dehydrogenase Troponin T C-Reactive Protein Total Protein Albumin Prealbumin Triglycerides Cholesterol LDL Cholesterol Direct HDL Cholesterol Urine pH Urine WBC (Auto) Urine Creatinine Urine Total Protein Fluid Total Protein Vancomycin Trough Rheumatoid Factor Complement C4 Miscellaneous Test Crossmatch 09/27/16 09/27/16 09/28/16 Unknown Unknown 03:45 WBC RBC 2.49 L Hgb 6.8 L Hct 20.7 L MCV MCH 27 L MCHC RDW 22.1 H Plt Count Lymph % (Auto) [place] % (Auto) Lymph # [place] # Baso # Seg Neutrophils % Seg Neuts % (Manual) 32.0 L Lymphocytes % (Manual) 12.0 L Monocytes % (Manual) 11.0 H Eosinophils % (Manual) 10.0 H Basophils % (Manual) Nucleated RBC % Seg Neutrophils # Seg Neutrophils # Man Lymphocytes # (Manual) 1.0 L Monocytes # (Manual) 0.9 H Eosinophils # (Manual) 0.8 H PT INR Fibrinogen dRVVT Confirm Interp Factor V Activity POC ABG pH POC ABG pCO2 POC ABG pO2 ABG pO2 ABG HCO3 ABG Hemoglobin Oxyhemoglobin Sodium 135 L 135 L Potassium 3.5 L Chloride 93.6 L 94.4 L Carbon Dioxide 17 L 21 L BUN 45 H 28 H Creatinine 3.3 H 2.5 H Glucose 106 H POC Glucose Lactic Acid Calcium 7.3 L 7.1 L Phosphorus Magnesium Direct Bilirubin AST ALT Alkaline Phosphatase Lactate Dehydrogenase Troponin T C-Reactive Protein Total Protein Albumin Prealbumin Triglycerides Cholesterol LDL Cholesterol Direct HDL Cholesterol Urine pH Urine WBC (Auto) Urine Creatinine Urine Total Protein Fluid Total Protein Vancomycin Trough Rheumatoid Factor Complement C4 Miscellaneous Test Crossmatch 08/11/0609/28/16 09/28/16 03:45 07:25 11:58 WBC 13.3 H RBC 3.01 L Hgb 8.4 L Hct 25.0 L MCV MCH MCHC RDW 20.5 H Plt Count 128 L Lymph % (Auto) [place] % (Auto) Lymph # [place] # Baso # Seg Neutrophils % Seg Neuts % (Manual) Lymphocytes % (Manual) 7.0 L Monocytes % (Manual) Eosinophils % (Manual) 6.0 H Basophils % (Manual) Nucleated RBC % Seg Neutrophils # Seg Neutrophils # Man Lymphocytes # (Manual) 0.9 L Monocytes # (Manual) Eosinophils # (Manual) 0.8 H PT INR Fibrinogen dRVVT Confirm Interp Factor V Activity POC ABG pH POC ABG pCO2 POC ABG pO2 ABG pO2 ABG HCO3 ABG Hemoglobin Oxyhemoglobin Sodium Potassium Chloride Carbon Dioxide BUN Creatinine Glucose POC Glucose 121 H Lactic Acid 4.50 H* Calcium Phosphorus Magnesium Direct Bilirubin AST ALT Alkaline Phosphatase Lactate Dehydrogenase Troponin T C-Reactive Protein Total Protein Albumin Prealbumin Triglycerides Cholesterol LDL Cholesterol Direct HDL Cholesterol Urine pH Urine WBC (Auto) Urine Creatinine Urine Total Protein Fluid Total Protein Vancomycin Trough Rheumatoid Factor Complement C4 Miscellaneous Test Crossmatch 09/29/16 09/29/16 09/29/16 06:45 06:45 06:45 WBC 14.9 H RBC 2.74 L Hgb 7.6 L Hct 23.2 L MCV MCH MCHC RDW 20.5 H Plt Count 81 L Lymph % (Auto) [place] % (Auto) Lymph # [place] # Baso # Seg Neutrophils % Seg Neuts % (Manual) 81.0 H Lymphocytes % (Manual) 4.0 L Monocytes % (Manual) Eosinophils % (Manual) Basophils % (Manual) Nucleated RBC % Seg Neutrophils # Seg Neutrophils # Man 12.1 H Lymphocytes # (Manual) 0.6 L Monocytes # (Manual) Eosinophils # (Manual) PT INR Fibrinogen dRVVT Confirm Interp Factor V Activity POC ABG pH POC ABG pCO2 POC ABG pO2 ABG pO2 ABG HCO3 ABG Hemoglobin Oxyhemoglobin Sodium 133 L Potassium 3.4 L Chloride 92.5 L Carbon Dioxide 21 L BUN 33 H Creatinine 3.0 H Glucose POC Glucose Lactic Acid Calcium 6.6 L Phosphorus Magnesium 1.40 L Direct Bilirubin 0.9 H AST ALT Alkaline Phosphatase Lactate Dehydrogenase Troponin T C-Reactive Protein Total Protein 4.3 L Albumin 1.3 L Prealbumin Triglycerides Cholesterol LDL Cholesterol Direct HDL Cholesterol Urine pH Urine WBC (Auto) Urine Creatinine Urine Total Protein Fluid Total Protein Vancomycin Trough Rheumatoid Factor Complement C4 Miscellaneous Test Crossmatch 09/29/16 09/29/16 09/30/16 17:52 20:12 00:07 WBC RBC Hgb Hct MCV MCH MCHC RDW Plt Count Lymph % (Auto) [place] % (Auto) Lymph # [place] # Baso # Seg Neutrophils % Seg Neuts % (Manual) Lymphocytes % (Manual) Monocytes % (Manual) Eosinophils % (Manual) Basophils % (Manual) Nucleated RBC % Seg Neutrophils # Seg Neutrophils # Man Lymphocytes # (Manual) Monocytes # (Manual) Eosinophils # (Manual) PT INR Fibrinogen dRVVT Confirm Interp Factor V Activity POC ABG pH POC ABG pCO2 POC ABG pO2 ABG pO2 ABG HCO3 ABG Hemoglobin Oxyhemoglobin Sodium Potassium Chloride Carbon Dioxide BUN Creatinine Glucose POC Glucose 50 L 51 L Lactic Acid Calcium Phosphorus Magnesium Direct Bilirubin AST ALT Alkaline Phosphatase Lactate Dehydrogenase Troponin T 0.204 H* C-Reactive Protein Total Protein Albumin Prealbumin Triglycerides Cholesterol 31 L LDL Cholesterol Direct 4 L HDL Cholesterol 3 L Urine pH Urine WBC (Auto) Urine Creatinine Urine Total Protein Fluid Total Protein Vancomycin Trough Rheumatoid Factor Complement C4 Miscellaneous Test Crossmatch 09/30/16 09/30/16 09/30/16 01:30 05:15 06:10 WBC RBC Hgb Hct MCV MCH MCHC RDW Plt Count Lymph % (Auto) [place] % (Auto) Lymph # [place] # Baso # Seg Neutrophils % Seg Neuts % (Manual) Lymphocytes % (Manual) Monocytes % (Manual) Eosinophils % (Manual) Basophils % (Manual) Nucleated RBC % Seg Neutrophils # Seg Neutrophils # Man Lymphocytes # (Manual) Monocytes # (Manual) Eosinophils # (Manual) PT INR Fibrinogen dRVVT Confirm Interp Factor V Activity POC ABG pH POC ABG pCO2 POC ABG pO2 ABG pO2 ABG HCO3 ABG Hemoglobin Oxyhemoglobin Sodium 133 L Potassium 3.2 L Chloride 93.2 L Carbon Dioxide 19 L BUN 36 H Creatinine 3.2 H Glucose 104 H POC Glucose 167 H 146 H Lactic Acid Calcium 6.4 L Phosphorus Magnesium 1.60 L Direct Bilirubin AST ALT Alkaline Phosphatase Lactate Dehydrogenase Troponin T C-Reactive Protein Total Protein Albumin Prealbumin Triglycerides Cholesterol LDL Cholesterol Direct HDL Cholesterol Urine pH Urine WBC (Auto) Urine Creatinine Urine Total Protein Fluid Total Protein Vancomycin Trough Rheumatoid Factor Complement C4 Miscellaneous Test Crossmatch 09/30/16 09/30/16 09/30/16 11:26 13:39 18:38 WBC RBC Hgb Hct MCV MCH MCHC RDW Plt Count Lymph % (Auto) [place] % (Auto) Lymph # [place] # Baso # Seg Neutrophils % Seg Neuts % (Manual) Lymphocytes % (Manual) Monocytes % (Manual) Eosinophils % (Manual) Basophils % (Manual) Nucleated RBC % Seg Neutrophils # Seg Neutrophils # Man Lymphocytes # (Manual) Monocytes # (Manual) Eosinophils # (Manual) PT INR Fibrinogen dRVVT Confirm Interp Factor V Activity POC ABG pH 7.479 H POC ABG pCO2 29.8 L POC ABG pO2 117 H ABG pO2 ABG HCO3 ABG Hemoglobin Oxyhemoglobin Sodium Potassium Chloride Carbon Dioxide BUN Creatinine Glucose POC Glucose 140 H 122 H Lactic Acid Calcium Phosphorus Magnesium Direct Bilirubin AST ALT Alkaline Phosphatase Lactate Dehydrogenase Troponin T C-Reactive Protein Total Protein Albumin Prealbumin Triglycerides Cholesterol LDL Cholesterol Direct HDL Cholesterol Urine pH Urine WBC (Auto) Urine Creatinine Urine Total Protein Fluid Total Protein Vancomycin Trough Rheumatoid Factor Complement C4 Miscellaneous Test Crossmatch 10/01/16 10/01/16 10/01/16 06:00 06:00 12:37 WBC 12.6 H RBC 2.75 L Hgb 7.3 L Hct 23.3 L MCV MCH 27 L MCHC RDW 20.6 H Plt Count 72 L Lymph % (Auto) [place] % (Auto) Lymph # [place] # Baso # Seg Neutrophils % Seg Neuts % (Manual) 31.0 L Lymphocytes % (Manual) 8.0 L Monocytes % (Manual) Eosinophils % (Manual) Basophils % (Manual) Nucleated RBC % 3.0 H Seg Neutrophils # Seg Neutrophils # Man Lymphocytes # (Manual) 1.0 L Monocytes # (Manual) Eosinophils # (Manual) PT INR Fibrinogen dRVVT Confirm Interp Factor V Activity POC ABG pH POC ABG pCO2 POC ABG pO2 ABG pO2 ABG HCO3 ABG Hemoglobin Oxyhemoglobin Sodium 127 L Potassium Chloride 86.8 L Carbon Dioxide 20 L BUN 42 H Creatinine 3.5 H Glucose POC Glucose 65 L Lactic Acid Calcium 7.0 L Phosphorus Magnesium Direct Bilirubin AST ALT Alkaline Phosphatase Lactate Dehydrogenase Troponin T C-Reactive Protein Total Protein Albumin Prealbumin Triglycerides Cholesterol LDL Cholesterol Direct HDL Cholesterol Urine pH Urine WBC (Auto) Urine Creatinine Urine Total Protein Fluid Total Protein Vancomycin Trough Rheumatoid Factor Complement C4 Miscellaneous Test Crossmatch 10/01/16 10/01/16 10/02/16 17:39 23:32 00:59 WBC RBC Hgb Hct MCV MCH MCHC RDW Plt Count Lymph % (Auto) [place] % (Auto) Lymph # [place] # Baso # Seg Neutrophils % Seg Neuts % (Manual) Lymphocytes % (Manual) Monocytes % (Manual) Eosinophils % (Manual) Basophils % (Manual) Nucleated RBC % Seg Neutrophils # Seg Neutrophils # Man Lymphocytes # (Manual) Monocytes # (Manual) Eosinophils # (Manual) PT INR Fibrinogen dRVVT Confirm Interp Factor V Activity POC ABG pH POC ABG pCO2 POC ABG pO2 ABG pO2 ABG HCO3 ABG Hemoglobin Oxyhemoglobin Sodium Potassium Chloride Carbon Dioxide BUN Creatinine Glucose POC Glucose 107 H 52 L 145 H Lactic Acid Calcium Phosphorus Magnesium Direct Bilirubin AST ALT Alkaline Phosphatase Lactate Dehydrogenase Troponin T C-Reactive Protein Total Protein Albumin Prealbumin Triglycerides Cholesterol LDL Cholesterol Direct HDL Cholesterol Urine pH Urine WBC (Auto) Urine Creatinine Urine Total Protein Fluid Total Protein Vancomycin Trough Rheumatoid Factor Complement C4 Miscellaneous Test Crossmatch 10/02/16 10/02/16 10/02/16 10:30 10:50 10:50 WBC 14.7 H RBC 2.76 L Hgb 7.4 L Hct 23.6 L MCV MCH 27 L MCHC RDW 20.2 H Plt Count 79 L Lymph % (Auto) [place] % (Auto) Lymph # [place] # Baso # Seg Neutrophils % Seg Neuts % (Manual) 86.0 H Lymphocytes % (Manual) 6.0 L Monocytes % (Manual) Eosinophils % (Manual) Basophils % (Manual) Nucleated RBC % Seg Neutrophils # Seg Neutrophils # Man 12.6 H Lymphocytes # (Manual) 0.9 L Monocytes # (Manual) Eosinophils # (Manual) PT INR Fibrinogen dRVVT Confirm Interp Factor V Activity POC ABG pH 7.486 H POC ABG pCO2 30.1 L POC ABG pO2 108 H ABG pO2 ABG HCO3 ABG Hemoglobin Oxyhemoglobin Sodium 131 L Potassium 3.4 L Chloride 89.9 L Carbon Dioxide BUN 26 H Creatinine 2.6 H Glucose POC Glucose Lactic Acid Calcium 7.0 L Phosphorus Magnesium Direct Bilirubin AST ALT Alkaline Phosphatase Lactate Dehydrogenase Troponin T C-Reactive Protein Total Protein Albumin Prealbumin Triglycerides Cholesterol LDL Cholesterol Direct HDL Cholesterol Urine pH Urine WBC (Auto) Urine Creatinine Urine Total Protein Fluid Total Protein Vancomycin Trough Rheumatoid Factor Complement C4 Miscellaneous Test Crossmatch 10/02/16 10/03/16 10/03/16 23:45 00:45 05:10 WBC 12.9 H RBC 2.77 L Hgb 7.6 L Hct 23.7 L MCV MCH 27 L MCHC RDW 19.7 H Plt Count 89 L Lymph % (Auto) [place] % (Auto) Lymph # [place] # Baso # Seg Neutrophils % Seg Neuts % (Manual) Lymphocytes % (Manual) 8.0 L Monocytes % (Manual) Eosinophils % (Manual) Basophils % (Manual) Nucleated RBC % Seg Neutrophils # 11.9 H Seg Neutrophils # Man Lymphocytes # (Manual) 1.0 L Monocytes # (Manual) Eosinophils # (Manual) PT INR Fibrinogen dRVVT Confirm Interp Factor V Activity POC ABG pH POC ABG pCO2 POC ABG pO2 ABG pO2 ABG HCO3 ABG Hemoglobin Oxyhemoglobin Sodium Potassium Chloride Carbon Dioxide BUN Creatinine Glucose POC Glucose 55 L 199 H Lactic Acid Calcium Phosphorus Magnesium Direct Bilirubin AST ALT Alkaline Phosphatase Lactate Dehydrogenase Troponin T C-Reactive Protein Total Protein Albumin Prealbumin Triglycerides Cholesterol LDL Cholesterol Direct HDL Cholesterol Urine pH Urine WBC (Auto) Urine Creatinine Urine Total Protein Fluid Total Protein Vancomycin Trough Rheumatoid Factor Complement C4 Miscellaneous Test Crossmatch 10/03/16 10/03/16 10/03/16 05:10 12:14 13:18 WBC RBC Hgb Hct MCV MCH MCHC RDW Plt Count Lymph % (Auto) [place] % (Auto) Lymph # [place] # Baso # Seg Neutrophils % Seg Neuts % (Manual) Lymphocytes % (Manual) Monocytes % (Manual) Eosinophils % (Manual) Basophils % (Manual) Nucleated RBC % Seg Neutrophils # Seg Neutrophils # Man Lymphocytes # (Manual) Monocytes # (Manual) Eosinophils # (Manual) PT INR Fibrinogen dRVVT Confirm Interp Factor V Activity POC ABG pH POC ABG pCO2 POC ABG pO2 ABG pO2 ABG HCO3 ABG Hemoglobin Oxyhemoglobin Sodium 129 L Potassium 3.3 L Chloride 88.8 L Carbon Dioxide 20 L BUN 29 H Creatinine 2.8 H Glucose POC Glucose 68 L 127 H Lactic Acid Calcium 7.2 L Phosphorus Magnesium Direct Bilirubin AST ALT Alkaline Phosphatase Lactate Dehydrogenase Troponin T C-Reactive Protein Total Protein Albumin Prealbumin Triglycerides Cholesterol LDL Cholesterol Direct HDL Cholesterol Urine pH Urine WBC (Auto) Urine Creatinine Urine Total Protein Fluid Total Protein Vancomycin Trough Rheumatoid Factor Complement C4 Miscellaneous Test Crossmatch 10/03/16 10/03/16 10/03/16 14:42 18:21 19:09 WBC RBC Hgb Hct MCV MCH MCHC RDW Plt Count Lymph % (Auto) [place] % (Auto) Lymph # [place] # Baso # Seg Neutrophils % Seg Neuts % (Manual) Lymphocytes % (Manual) Monocytes % (Manual) Eosinophils % (Manual) Basophils % (Manual) Nucleated RBC % Seg Neutrophils # Seg Neutrophils # Man Lymphocytes # (Manual) Monocytes # (Manual) Eosinophils # (Manual) PT INR Fibrinogen dRVVT Confirm Interp Factor V Activity POC ABG pH 7.499 H POC ABG pCO2 28.4 L POC ABG pO2 44 L ABG pO2 ABG HCO3 ABG Hemoglobin Oxyhemoglobin Sodium Potassium Chloride Carbon Dioxide BUN Creatinine Glucose POC Glucose 64 L 205 H Lactic Acid Calcium Phosphorus Magnesium Direct Bilirubin AST ALT Alkaline Phosphatase Lactate Dehydrogenase Troponin T C-Reactive Protein Total Protein Albumin Prealbumin Triglycerides Cholesterol LDL Cholesterol Direct HDL Cholesterol Urine pH Urine WBC (Auto) Urine Creatinine Urine Total Protein Fluid Total Protein Vancomycin Trough Rheumatoid Factor Complement C4 Miscellaneous Test Crossmatch 10/03/16 10/04/16 10/04/16 23:33 04:18 06:30 WBC RBC 2.54 L Hgb 7.1 L Hct 21.7 L MCV MCH MCHC RDW 19.5 H Plt Count 76 L Lymph % (Auto) [place] % (Auto) Lymph # [place] # Baso # Seg Neutrophils % Seg Neuts % (Manual) 88.0 H Lymphocytes % (Manual) 6.0 L Monocytes % (Manual) Eosinophils % (Manual) Basophils % (Manual) Nucleated RBC % Seg Neutrophils # Seg Neutrophils # Man 8.8 H Lymphocytes # (Manual) 0.6 L Monocytes # (Manual) Eosinophils # (Manual) PT INR Fibrinogen dRVVT Confirm Interp Factor V Activity POC ABG pH 7.461 H POC ABG pCO2 33.6 L POC ABG pO2 211 H ABG pO2 ABG HCO3 ABG Hemoglobin Oxyhemoglobin Sodium Potassium Chloride Carbon Dioxide BUN Creatinine Glucose POC Glucose 136 H Lactic Acid Calcium Phosphorus Magnesium Direct Bilirubin AST ALT Alkaline Phosphatase Lactate Dehydrogenase Troponin T C-Reactive Protein Total Protein Albumin Prealbumin Triglycerides Cholesterol LDL Cholesterol Direct HDL Cholesterol Urine pH Urine WBC (Auto) Urine Creatinine Urine Total Protein Fluid Total Protein Vancomycin Trough Rheumatoid Factor Complement C4 Miscellaneous Test Crossmatch 10/04/16 10/04/16 10/04/16 06:30 11:45 17:54 WBC RBC Hgb Hct MCV MCH MCHC RDW Plt Count Lymph % (Auto) [place] % (Auto) Lymph # [place] # Baso # Seg Neutrophils % Seg Neuts % (Manual) Lymphocytes % (Manual) Monocytes % (Manual) Eosinophils % (Manual) Basophils % (Manual) Nucleated RBC % Seg Neutrophils # Seg Neutrophils # Man Lymphocytes # (Manual) Monocytes # (Manual) Eosinophils # (Manual) PT INR Fibrinogen dRVVT Confirm Interp Factor V Activity POC ABG pH POC ABG pCO2 POC ABG pO2 ABG pO2 ABG HCO3 ABG Hemoglobin Oxyhemoglobin Sodium 128 L Potassium Chloride 87.4 L Carbon Dioxide 20 L BUN 34 H Creatinine 2.9 H Glucose 127 H POC Glucose 158 H 160 H Lactic Acid Calcium 7.4 L Phosphorus Magnesium Direct Bilirubin AST ALT Alkaline Phosphatase Lactate Dehydrogenase Troponin T C-Reactive Protein Total Protein Albumin Prealbumin Triglycerides Cholesterol LDL Cholesterol Direct HDL Cholesterol Urine pH Urine WBC (Auto) Urine Creatinine Urine Total Protein Fluid Total Protein Vancomycin Trough Rheumatoid Factor Complement C4 Miscellaneous Test Crossmatch 10/04/16 10/05/16 10/05/16 23:25 04:30 05:00 WBC RBC 2.64 L Hgb 7.5 L Hct 22.6 L MCV MCH MCHC RDW 19.3 H Plt Count 80 L Lymph % (Auto) [place] % (Auto) Lymph # [place] # Baso # Seg Neutrophils % Seg Neuts % (Manual) Lymphocytes % (Manual) 12.0 L Monocytes % (Manual) Eosinophils % (Manual) Basophils % (Manual) Nucleated RBC % Seg Neutrophils # Seg Neutrophils # Man Lymphocytes # (Manual) Monocytes # (Manual) Eosinophils # (Manual) PT INR Fibrinogen dRVVT Confirm Interp Factor V Activity POC ABG pH 7.475 H POC ABG pCO2 33.3 L POC ABG pO2 140 H ABG pO2 ABG HCO3 ABG Hemoglobin Oxyhemoglobin Sodium Potassium Chloride Carbon Dioxide BUN Creatinine Glucose POC Glucose 141 H Lactic Acid Calcium Phosphorus Magnesium Direct Bilirubin AST ALT Alkaline Phosphatase Lactate Dehydrogenase Troponin T C-Reactive Protein Total Protein Albumin Prealbumin Triglycerides Cholesterol LDL Cholesterol Direct HDL Cholesterol Urine pH Urine WBC (Auto) Urine Creatinine Urine Total Protein Fluid Total Protein Vancomycin Trough Rheumatoid Factor Complement C4 Miscellaneous Test Crossmatch 08/10/05/16 10/05/16 05:00 05:09 12:58 WBC RBC Hgb Hct MCV MCH MCHC RDW Plt Count Lymph % (Auto) [place] % (Auto) Lymph # [place] # Baso # Seg Neutrophils % Seg Neuts % (Manual) Lymphocytes % (Manual) Monocytes % (Manual) Eosinophils % (Manual) Basophils % (Manual) Nucleated RBC % Seg Neutrophils # Seg Neutrophils # Man Lymphocytes # (Manual) Monocytes # (Manual) Eosinophils # (Manual) PT INR Fibrinogen dRVVT Confirm Interp Factor V Activity POC ABG pH POC ABG pCO2 POC ABG pO2 ABG pO2 ABG HCO3 ABG Hemoglobin Oxyhemoglobin Sodium 131 L Potassium Chloride 94.0 L Carbon Dioxide 20 L BUN 22 H Creatinine 2.0 H Glucose 123 H POC Glucose 166 H 179 H Lactic Acid Calcium 7.7 L Phosphorus 2.20 L D Magnesium Direct Bilirubin AST ALT Alkaline Phosphatase Lactate Dehydrogenase Troponin T C-Reactive Protein Total Protein Albumin Prealbumin Triglycerides Cholesterol LDL Cholesterol Direct HDL Cholesterol Urine pH Urine WBC (Auto) Urine Creatinine Urine Total Protein Fluid Total Protein Vancomycin Trough Rheumatoid Factor Complement C4 Miscellaneous Test Crossmatch 10/05/16 10/05/16 10/05/16 15:50 18:53 23:12 WBC RBC Hgb Hct MCV MCH MCHC RDW Plt Count Lymph % (Auto) [place] % (Auto) Lymph # [place] # Baso # Seg Neutrophils % Seg Neuts % (Manual) Lymphocytes % (Manual) Monocytes % (Manual) Eosinophils % (Manual) Basophils % (Manual) Nucleated RBC % Seg Neutrophils # Seg Neutrophils # Man Lymphocytes # (Manual) Monocytes # (Manual) Eosinophils # (Manual) PT INR Fibrinogen dRVVT Confirm Interp Factor V Activity POC ABG pH POC ABG pCO2 POC ABG pO2 ABG pO2 ABG HCO3 ABG Hemoglobin Oxyhemoglobin Sodium Potassium Chloride Carbon Dioxide BUN Creatinine Glucose POC Glucose 150 H 164 H Lactic Acid Calcium Phosphorus Magnesium Direct Bilirubin AST ALT Alkaline Phosphatase Lactate Dehydrogenase Troponin T C-Reactive Protein Total Protein Albumin Prealbumin Triglycerides Cholesterol LDL Cholesterol Direct HDL Cholesterol Urine pH Urine WBC (Auto) Urine Creatinine Urine Total Protein Fluid Total Protein Vancomycin Trough Rheumatoid Factor Complement C4 Miscellaneous Test Crossmatch See Detail 10/06/16 10/06/16 10/06/16 03:50 03:50 04:53 WBC RBC 3.00 L Hgb 8.6 L Hct 25.8 L MCV MCH MCHC RDW 17.9 H Plt Count 65 L Lymph % (Auto) [place] % (Auto) Lymph # [place] # Baso # Seg Neutrophils % Seg Neuts % (Manual) 30.0 L Lymphocytes % (Manual) 5.0 L Monocytes % (Manual) Eosinophils % (Manual) Basophils % (Manual) Nucleated RBC % Seg Neutrophils # Seg Neutrophils # Man Lymphocytes # (Manual) 0.4 L Monocytes # (Manual) Eosinophils # (Manual) PT INR Fibrinogen dRVVT Confirm Interp Factor V Activity POC ABG pH 7.310 L POC ABG pCO2 49.0 H POC ABG pO2 ABG pO2 ABG HCO3 ABG Hemoglobin Oxyhemoglobin Sodium 133 L Potassium Chloride 95.9 L Carbon Dioxide BUN 26 H Creatinine 2.0 H Glucose 116 H POC Glucose Lactic Acid Calcium 7.8 L Phosphorus Magnesium Direct Bilirubin AST ALT Alkaline Phosphatase Lactate Dehydrogenase Troponin T C-Reactive Protein Total Protein Albumin Prealbumin Triglycerides Cholesterol LDL Cholesterol Direct HDL Cholesterol Urine pH Urine WBC (Auto) Urine Creatinine Urine Total Protein Fluid Total Protein Vancomycin Trough Rheumatoid Factor Complement C4 Miscellaneous Test Crossmatch 10/06/16 10/06/16 10/06/16 05:23 11:52 18:34 WBC RBC Hgb Hct MCV MCH MCHC RDW Plt Count Lymph % (Auto) [place] % (Auto) Lymph # [place] # Baso # Seg Neutrophils % Seg Neuts % (Manual) Lymphocytes % (Manual) Monocytes % (Manual) Eosinophils % (Manual) Basophils % (Manual) Nucleated RBC % Seg Neutrophils # Seg Neutrophils # Man Lymphocytes # (Manual) Monocytes # (Manual) Eosinophils # (Manual) PT INR Fibrinogen dRVVT Confirm Interp Factor V Activity POC ABG pH POC ABG pCO2 POC ABG pO2 ABG pO2 ABG HCO3 ABG Hemoglobin Oxyhemoglobin Sodium Potassium Chloride Carbon Dioxide BUN Creatinine Glucose POC Glucose 126 H 116 H 129 H Lactic Acid Calcium Phosphorus Magnesium Direct Bilirubin AST ALT Alkaline Phosphatase Lactate Dehydrogenase Troponin T C-Reactive Protein Total Protein Albumin Prealbumin Triglycerides Cholesterol LDL Cholesterol Direct HDL Cholesterol Urine pH Urine WBC (Auto) Urine Creatinine Urine Total Protein Fluid Total Protein Vancomycin Trough Rheumatoid Factor Complement C4 Miscellaneous Test Crossmatch 10/07/16 10/07/16 10/07/16 03:45 05:00 10:00 WBC 17.0 H RBC 2.68 L Hgb 7.3 L Hct 25.3 L MCV MCH 27 L MCHC 29 L RDW 19.6 H Plt Count 74 L Lymph % (Auto) [place] % (Auto) Lymph # [place] # Baso # Seg Neutrophils % Seg Neuts % (Manual) Lymphocytes % (Manual) 12.0 L Monocytes % (Manual) Eosinophils % (Manual) Basophils % (Manual) Nucleated RBC % 4.0 H Seg Neutrophils # Seg Neutrophils # Man 10.7 H Lymphocytes # (Manual) Monocytes # (Manual) Eosinophils # (Manual) PT INR Fibrinogen dRVVT Confirm Interp Factor V Activity POC ABG pH POC ABG pCO2 POC ABG pO2 ABG pO2 ABG HCO3 ABG Hemoglobin Oxyhemoglobin Sodium 130 L Potassium 3.2 L Chloride 93.9 L Carbon Dioxide 20 L BUN 44 H Creatinine 2.7 H Glucose 129 H POC Glucose Lactic Acid Calcium 7.4 L Phosphorus Magnesium Direct Bilirubin AST ALT 6 L Alkaline Phosphatase 195 H Lactate Dehydrogenase Troponin T C-Reactive Protein Total Protein 4.9 L Albumin 1.0 L Prealbumin Triglycerides Cholesterol LDL Cholesterol Direct HDL Cholesterol Urine pH Urine WBC (Auto) Urine Creatinine Urine Total Protein Fluid Total Protein Vancomycin Trough Rheumatoid Factor Complement C4 Miscellaneous Test Flexitest 1 H Crossmatch 10/07/16 10/07/16 10/07/16 10:00 11:24 18:10 WBC RBC Hgb Hct MCV MCH MCHC RDW Plt Count Lymph % (Auto) [place] % (Auto) Lymph # [place] # Baso # Seg Neutrophils % Seg Neuts % (Manual) Lymphocytes % (Manual) Monocytes % (Manual) Eosinophils % (Manual) Basophils % (Manual) Nucleated RBC % Seg Neutrophils # Seg Neutrophils # Man Lymphocytes # (Manual) Monocytes # (Manual) Eosinophils # (Manual) PT INR Fibrinogen dRVVT Confirm Interp Factor V Activity POC ABG pH POC ABG pCO2 POC ABG pO2 ABG pO2 ABG HCO3 ABG Hemoglobin Oxyhemoglobin Sodium Potassium Chloride Carbon Dioxide BUN Creatinine Glucose POC Glucose 116 H 130 H Lactic Acid Calcium Phosphorus Magnesium Direct Bilirubin AST ALT Alkaline Phosphatase Lactate Dehydrogenase Troponin T C-Reactive Protein 19.40 H Total Protein Albumin Prealbumin Triglycerides Cholesterol LDL Cholesterol Direct HDL Cholesterol Urine pH Urine WBC (Auto) Urine Creatinine Urine Total Protein Fluid Total Protein Vancomycin Trough Rheumatoid Factor Complement C4 Miscellaneous Test Crossmatch 10/07/16 10/08/16 10/08/16 18:30 00:00 04:00 WBC RBC Hgb Hct MCV MCH MCHC RDW Plt Count Lymph % (Auto) [place] % (Auto) Lymph # [place] # Baso # Seg Neutrophils % Seg Neuts % (Manual) Lymphocytes % (Manual) Monocytes % (Manual) Eosinophils % (Manual) Basophils % (Manual) Nucleated RBC % Seg Neutrophils # Seg Neutrophils # Man Lymphocytes # (Manual) Monocytes # (Manual) Eosinophils # (Manual) PT INR Fibrinogen dRVVT Confirm Interp Factor V Activity POC ABG pH POC ABG pCO2 POC ABG pO2 ABG pO2 ABG HCO3 ABG Hemoglobin Oxyhemoglobin Sodium 132 L Potassium 3.3 L Chloride 93.6 L Carbon Dioxide 17 L BUN 59 H Creatinine 2.7 H Glucose 121 H POC Glucose 122 H Lactic Acid Calcium 7.6 L Phosphorus Magnesium Direct Bilirubin AST ALT Alkaline Phosphatase Lactate Dehydrogenase Troponin T C-Reactive Protein Total Protein Albumin Prealbumin Triglycerides Cholesterol LDL Cholesterol Direct HDL Cholesterol Urine pH Urine WBC (Auto) > 182.0 H Urine Creatinine Urine Total Protein Fluid Total Protein Vancomycin Trough Rheumatoid Factor Complement C4 Miscellaneous Test Crossmatch 10/08/16 10/08/16 10/08/16 04:30 05:30 11:51 WBC RBC 5.15 H Hgb 14.4 H D Hct 44.5 H D MCV MCH MCHC RDW 19.5 H Plt Count 56 L Lymph % (Auto) [place] % (Auto) Lymph # [place] # Baso # Seg Neutrophils % Seg Neuts % (Manual) 24.0 L Lymphocytes % (Manual) 8.0 L Monocytes % (Manual) Eosinophils % (Manual) Basophils % (Manual) Nucleated RBC % 9.0 H Seg Neutrophils # Seg Neutrophils # Man Lymphocytes # (Manual) 0.7 L Monocytes # (Manual) Eosinophils # (Manual) PT INR Fibrinogen dRVVT Confirm Interp Factor V Activity POC ABG pH POC ABG pCO2 POC ABG pO2 ABG pO2 ABG HCO3 ABG Hemoglobin Oxyhemoglobin Sodium Potassium Chloride Carbon Dioxide BUN Creatinine Glucose POC Glucose 125 H 150 H Lactic Acid Calcium Phosphorus Magnesium Direct Bilirubin AST ALT Alkaline Phosphatase Lactate Dehydrogenase Troponin T C-Reactive Protein Total Protein Albumin Prealbumin Triglycerides Cholesterol LDL Cholesterol Direct HDL Cholesterol Urine pH Urine WBC (Auto) Urine Creatinine Urine Total Protein Fluid Total Protein Vancomycin Trough Rheumatoid Factor Complement C4 Miscellaneous Test Crossmatch 10/08/16 10/08/16 10/08/16 12:49 17:07 19:30 WBC RBC Hgb 7.1 L D Hct 22.4 L D MCV MCH MCHC RDW Plt Count Lymph % (Auto) [place] % (Auto) Lymph # [place] # Baso # Seg Neutrophils % Seg Neuts % (Manual) Lymphocytes % (Manual) Monocytes % (Manual) Eosinophils % (Manual) Basophils % (Manual) Nucleated RBC % Seg Neutrophils # Seg Neutrophils # Man Lymphocytes # (Manual) Monocytes # (Manual) Eosinophils # (Manual) PT INR Fibrinogen dRVVT Confirm Interp Factor V Activity POC ABG pH POC ABG pCO2 28.2 L POC ABG pO2 111 H ABG pO2 ABG HCO3 ABG Hemoglobin Oxyhemoglobin Sodium Potassium Chloride Carbon Dioxide BUN Creatinine Glucose POC Glucose 145 H Lactic Acid Calcium Phosphorus Magnesium Direct Bilirubin AST ALT Alkaline Phosphatase Lactate Dehydrogenase Troponin T C-Reactive Protein Total Protein Albumin Prealbumin Triglycerides Cholesterol LDL Cholesterol Direct HDL Cholesterol Urine pH Urine WBC (Auto) Urine Creatinine Urine Total Protein Fluid Total Protein Vancomycin Trough Rheumatoid Factor Complement C4 Miscellaneous Test Crossmatch 10/08/16 10/09/16 10/09/16 19:30 03:45 03:45 WBC 12.6 H RBC 2.36 L Hgb 6.7 L Hct 21.1 L MCV MCH MCHC RDW 19.5 H Plt Count 75 L Lymph % (Auto) [place] % (Auto) Lymph # [place] # Baso # Seg Neutrophils % Seg Neuts % (Manual) Lymphocytes % (Manual) Monocytes % (Manual) 10.0 H Eosinophils % (Manual) Basophils % (Manual) Nucleated RBC % 3.0 H Seg Neutrophils # Seg Neutrophils # Man Lymphocytes # (Manual) Monocytes # (Manual) 1.3 H Eosinophils # (Manual) PT 18.0 H INR 1.41 H Fibrinogen dRVVT Confirm Interp Factor V Activity POC ABG pH POC ABG pCO2 POC ABG pO2 ABG pO2 ABG HCO3 ABG Hemoglobin Oxyhemoglobin Sodium 135 L Potassium Chloride Carbon Dioxide 17 L BUN 81 H Creatinine 3.2 H Glucose 109 H POC Glucose Lactic Acid Calcium 7.4 L Phosphorus 4.60 H D Magnesium Direct Bilirubin AST ALT Alkaline Phosphatase Lactate Dehydrogenase Troponin T C-Reactive Protein Total Protein Albumin Prealbumin Triglycerides Cholesterol LDL Cholesterol Direct HDL Cholesterol Urine pH Urine WBC (Auto) Urine Creatinine Urine Total Protein Fluid Total Protein Vancomycin Trough Rheumatoid Factor Complement C4 Miscellaneous Test Crossmatch 10/09/16 10/09/16 10/09/16 03:45 05:14 07:20 WBC RBC Hgb Hct MCV MCH MCHC RDW Plt Count Lymph % (Auto) [place] % (Auto) Lymph # [place] # Baso # Seg Neutrophils % Seg Neuts % (Manual) Lymphocytes % (Manual) Monocytes % (Manual) Eosinophils % (Manual) Basophils % (Manual) Nucleated RBC % Seg Neutrophils # Seg Neutrophils # Man Lymphocytes # (Manual) Monocytes # (Manual) Eosinophils # (Manual) PT 19.0 H INR 1.51 H Fibrinogen dRVVT Confirm Interp Factor V Activity POC ABG pH POC ABG pCO2 POC ABG pO2 ABG pO2 ABG HCO3 ABG Hemoglobin Oxyhemoglobin Sodium Potassium Chloride Carbon Dioxide BUN Creatinine Glucose POC Glucose 151 H Lactic Acid Calcium Phosphorus Magnesium Direct Bilirubin AST ALT Alkaline Phosphatase Lactate Dehydrogenase Troponin T C-Reactive Protein Total Protein Albumin Prealbumin Triglycerides Cholesterol LDL Cholesterol Direct HDL Cholesterol Urine pH Urine WBC (Auto) Urine Creatinine Urine Total Protein Fluid Total Protein Vancomycin Trough Rheumatoid Factor Complement C4 Miscellaneous Test Crossmatch See Detail 10/09/16 10/09/16 10/09/16 11:46 16:20 16:43 WBC RBC Hgb 7.2 L Hct 22.2 L MCV MCH MCHC RDW Plt Count Lymph % (Auto) [place] % (Auto) Lymph # [place] # Baso # Seg Neutrophils % Seg Neuts % (Manual) Lymphocytes % (Manual) Monocytes % (Manual) Eosinophils % (Manual) Basophils % (Manual) Nucleated RBC % Seg Neutrophils # Seg Neutrophils # Man Lymphocytes # (Manual) Monocytes # (Manual) Eosinophils # (Manual) PT INR Fibrinogen dRVVT Confirm Interp Factor V Activity POC ABG pH POC ABG pCO2 POC ABG pO2 ABG pO2 ABG HCO3 ABG Hemoglobin Oxyhemoglobin Sodium Potassium Chloride Carbon Dioxide BUN Creatinine Glucose POC Glucose 133 H 141 H Lactic Acid Calcium Phosphorus Magnesium Direct Bilirubin AST ALT Alkaline Phosphatase Lactate Dehydrogenase Troponin T C-Reactive Protein Total Protein Albumin Prealbumin Triglycerides Cholesterol LDL Cholesterol Direct HDL Cholesterol Urine pH Urine WBC (Auto) Urine Creatinine Urine Total Protein Fluid Total Protein Vancomycin Trough Rheumatoid Factor Complement C4 Miscellaneous Test Crossmatch 10/10/16 10/10/16 10/10/16 05:00 05:00 11:19 WBC 18.5 H RBC 2.19 L Hgb 6.4 L Hct 19.6 L* MCV MCH MCHC RDW 19.3 H Plt Count 93 L Lymph % (Auto) [place] % (Auto) Lymph # [place] # Baso # Seg Neutrophils % Seg Neuts % (Manual) Lymphocytes % (Manual) 10.0 L Monocytes % (Manual) Eosinophils % (Manual) Basophils % (Manual) Nucleated RBC % 4.0 H Seg Neutrophils # Seg Neutrophils # Man 11.3 H Lymphocytes # (Manual) Monocytes # (Manual) Eosinophils # (Manual) PT INR Fibrinogen dRVVT Confirm Interp Factor V Activity POC ABG pH POC ABG pCO2 POC ABG pO2 ABG pO2 ABG HCO3 ABG Hemoglobin Oxyhemoglobin Sodium Potassium 5.7 H D Chloride Carbon Dioxide 16 L BUN 94 H Creatinine 3.1 H Glucose 131 H POC Glucose 153 H Lactic Acid Calcium 8.2 L Phosphorus 5.10 H Magnesium 2.40 H Direct Bilirubin 0.3 H AST ALT < 5 L Alkaline Phosphatase 319 H Lactate Dehydrogenase Troponin T C-Reactive Protein Total Protein 5.1 L Albumin 1.0 L Prealbumin Triglycerides Cholesterol LDL Cholesterol Direct HDL Cholesterol Urine pH Urine WBC (Auto) Urine Creatinine Urine Total Protein Fluid Total Protein Vancomycin Trough Rheumatoid Factor Complement C4 Miscellaneous Test Crossmatch 10/10/16 10/10/16 10/11/16 17:50 23:30 04:15 WBC RBC Hgb Hct MCV MCH MCHC RDW Plt Count Lymph % (Auto) [place] % (Auto) Lymph # [place] # Baso # Seg Neutrophils % Seg Neuts % (Manual) Lymphocytes % (Manual) Monocytes % (Manual) Eosinophils % (Manual) Basophils % (Manual) Nucleated RBC % Seg Neutrophils # Seg Neutrophils # Man Lymphocytes # (Manual) Monocytes # (Manual) Eosinophils # (Manual) PT INR Fibrinogen dRVVT Confirm Interp Factor V Activity POC ABG pH POC ABG pCO2 POC ABG pO2 ABG pO2 ABG HCO3 ABG Hemoglobin Oxyhemoglobin Sodium Potassium Chloride 96.4 L Carbon Dioxide 21 L BUN 57 H Creatinine 2.1 H Glucose 151 H POC Glucose 146 H 141 H Lactic Acid Calcium 8.3 L Phosphorus Magnesium Direct Bilirubin AST ALT Alkaline Phosphatase Lactate Dehydrogenase Troponin T C-Reactive Protein Total Protein Albumin Prealbumin Triglycerides Cholesterol LDL Cholesterol Direct HDL Cholesterol Urine pH Urine WBC (Auto) Urine Creatinine Urine Total Protein Fluid Total Protein Vancomycin Trough Rheumatoid Factor Complement C4 Miscellaneous Test Crossmatch 10/11/16 10/11/16 10/11/16 04:15 04:15 05:30 WBC 28.3 H RBC 3.12 L Hgb 9.3 L Hct 28.7 L D MCV MCH MCHC RDW 17.7 H Plt Count 128 L Lymph % (Auto) [place] % (Auto) Lymph # [place] # Baso # Seg Neutrophils % Seg Neuts % (Manual) Lymphocytes % (Manual) Monocytes % (Manual) Eosinophils % (Manual) Basophils % (Manual) Nucleated RBC % Seg Neutrophils # Seg Neutrophils # Man Lymphocytes # (Manual) Monocytes # (Manual) Eosinophils # (Manual) PT INR Fibrinogen dRVVT Confirm Interp Factor V Activity POC ABG pH POC ABG pCO2 POC ABG pO2 ABG pO2 ABG HCO3 ABG Hemoglobin Oxyhemoglobin Sodium Potassium Chloride Carbon Dioxide BUN Creatinine Glucose POC Glucose 167 H Lactic Acid Calcium Phosphorus Magnesium Direct Bilirubin AST ALT Alkaline Phosphatase Lactate Dehydrogenase Troponin T C-Reactive Protein 15.80 H Total Protein Albumin Prealbumin Triglycerides Cholesterol LDL Cholesterol Direct HDL Cholesterol Urine pH Urine WBC (Auto) Urine Creatinine Urine Total Protein Fluid Total Protein Vancomycin Trough Rheumatoid Factor Complement C4 Miscellaneous Test Crossmatch 10/11/16 10/11/16 10/11/16 11:40 15:49 23:57 WBC RBC Hgb Hct MCV MCH MCHC RDW Plt Count Lymph % (Auto) [place] % (Auto) Lymph # [place] # Baso # Seg Neutrophils % Seg Neuts % (Manual) Lymphocytes % (Manual) Monocytes % (Manual) Eosinophils % (Manual) Basophils % (Manual) Nucleated RBC % Seg Neutrophils # Seg Neutrophils # Man Lymphocytes # (Manual) Monocytes # (Manual) Eosinophils # (Manual) PT INR Fibrinogen dRVVT Confirm Interp Factor V Activity POC ABG pH POC ABG pCO2 POC ABG pO2 ABG pO2 ABG HCO3 ABG Hemoglobin Oxyhemoglobin Sodium Potassium Chloride Carbon Dioxide BUN Creatinine Glucose POC Glucose 139 H 168 H 161 H Lactic Acid Calcium Phosphorus Magnesium Direct Bilirubin AST ALT Alkaline Phosphatase Lactate Dehydrogenase Troponin T C-Reactive Protein Total Protein Albumin Prealbumin Triglycerides Cholesterol LDL Cholesterol Direct HDL Cholesterol Urine pH Urine WBC (Auto) Urine Creatinine Urine Total Protein Fluid Total Protein Vancomycin Trough Rheumatoid Factor Complement C4 Miscellaneous Test Crossmatch 10/12/16 10/12/16 10/12/16 04:40 04:40 05:44 WBC 22.5 H RBC 2.88 L Hgb 8.8 L Hct 26.8 L MCV MCH MCHC RDW 17.8 H Plt Count Lymph % (Auto) [place] % (Auto) Lymph # [place] # Baso # Seg Neutrophils % Seg Neuts % (Manual) Lymphocytes % (Manual) Monocytes % (Manual) Eosinophils % (Manual) Basophils % (Manual) Nucleated RBC % Seg Neutrophils # Seg Neutrophils # Man Lymphocytes # (Manual) Monocytes # (Manual) Eosinophils # (Manual) PT INR Fibrinogen dRVVT Confirm Interp Factor V Activity POC ABG pH POC ABG pCO2 POC ABG pO2 ABG pO2 ABG HCO3 ABG Hemoglobin Oxyhemoglobin Sodium 134 L Potassium Chloride 93.0 L Carbon Dioxide BUN 74 H Creatinine 2.5 H Glucose 137 H POC Glucose 158 H Lactic Acid Calcium 8.2 L Phosphorus Magnesium Direct Bilirubin AST ALT Alkaline Phosphatase Lactate Dehydrogenase Troponin T C-Reactive Protein Total Protein Albumin Prealbumin Triglycerides Cholesterol LDL Cholesterol Direct HDL Cholesterol Urine pH Urine WBC (Auto) Urine Creatinine Urine Total Protein Fluid Total Protein Vancomycin Trough Rheumatoid Factor Complement C4 Miscellaneous Test Crossmatch 10/12/16 10/12/16 10/12/16 12:27 18:18 23:46 WBC RBC Hgb Hct MCV MCH MCHC RDW Plt Count Lymph % (Auto) [place] % (Auto) Lymph # [place] # Baso # Seg Neutrophils % Seg Neuts % (Manual) Lymphocytes % (Manual) Monocytes % (Manual) Eosinophils % (Manual) Basophils % (Manual) Nucleated RBC % Seg Neutrophils # Seg Neutrophils # Man Lymphocytes # (Manual) Monocytes # (Manual) Eosinophils # (Manual) PT INR Fibrinogen dRVVT Confirm Interp Factor V Activity POC ABG pH POC ABG pCO2 POC ABG pO2 ABG pO2 ABG HCO3 ABG Hemoglobin Oxyhemoglobin Sodium Potassium Chloride Carbon Dioxide BUN Creatinine Glucose POC Glucose 153 H 140 H 150 H Lactic Acid Calcium Phosphorus Magnesium Direct Bilirubin AST ALT Alkaline Phosphatase Lactate Dehydrogenase Troponin T C-Reactive Protein Total Protein Albumin Prealbumin Triglycerides Cholesterol LDL Cholesterol Direct HDL Cholesterol Urine pH Urine WBC (Auto) Urine Creatinine Urine Total Protein Fluid Total Protein Vancomycin Trough Rheumatoid Factor Complement C4 Miscellaneous Test Crossmatch 10/13/16 10/13/16 10/13/16 06:22 09:20 12:29 WBC RBC Hgb Hct MCV MCH MCHC RDW Plt Count Lymph % (Auto) [place] % (Auto) Lymph # [place] # Baso # Seg Neutrophils % Seg Neuts % (Manual) Lymphocytes % (Manual) Monocytes % (Manual) Eosinophils % (Manual) Basophils % (Manual) Nucleated RBC % Seg Neutrophils # Seg Neutrophils # Man Lymphocytes # (Manual) Monocytes # (Manual) Eosinophils # (Manual) PT INR Fibrinogen dRVVT Confirm Interp Factor V Activity POC ABG pH POC ABG pCO2 POC ABG pO2 ABG pO2 ABG HCO3 ABG Hemoglobin Oxyhemoglobin Sodium Potassium Chloride Carbon Dioxide BUN Creatinine Glucose POC Glucose 165 H 193 H Lactic Acid Calcium Phosphorus Magnesium Direct Bilirubin AST ALT Alkaline Phosphatase Lactate Dehydrogenase Troponin T C-Reactive Protein Total Protein Albumin Prealbumin Triglycerides Cholesterol LDL Cholesterol Direct HDL Cholesterol Urine pH Urine WBC (Auto) Urine Creatinine Urine Total Protein Fluid Total Protein Vancomycin Trough Rheumatoid Factor Complement C4 Miscellaneous Test Flexitest 1 H Crossmatch 10/13/16 10/13/16 10/13/16 18:09 Unknown Unknown WBC 23.4 H RBC 2.83 L Hgb 8.7 L Hct 26.1 L MCV MCH MCHC RDW 18.1 H Plt Count Lymph % (Auto) [place] % (Auto) Lymph # [place] # Baso # Seg Neutrophils % Seg Neuts % (Manual) Lymphocytes % (Manual) Monocytes % (Manual) Eosinophils % (Manual) Basophils % (Manual) Nucleated RBC % Seg Neutrophils # Seg Neutrophils # Man Lymphocytes # (Manual) Monocytes # (Manual) Eosinophils # (Manual) PT INR Fibrinogen dRVVT Confirm Interp Factor V Activity POC ABG pH POC ABG pCO2 POC ABG pO2 ABG pO2 ABG HCO3 ABG Hemoglobin Oxyhemoglobin Sodium Potassium Chloride 95.8 L Carbon Dioxide BUN 82 H Creatinine 2.6 H Glucose 152 H POC Glucose 166 H Lactic Acid Calcium Phosphorus Magnesium Direct Bilirubin AST ALT Alkaline Phosphatase Lactate Dehydrogenase Troponin T C-Reactive Protein Total Protein Albumin Prealbumin Triglycerides Cholesterol LDL Cholesterol Direct HDL Cholesterol Urine pH Urine WBC (Auto) Urine Creatinine Urine Total Protein Fluid Total Protein Vancomycin Trough Rheumatoid Factor Complement C4 Miscellaneous Test Crossmatch 10/14/16 10/14/16 10/14/16 05:38 06:35 08:10 WBC 20.7 H RBC 2.81 L Hgb 8.4 L Hct 27.2 L MCV MCH MCHC RDW 19.4 H Plt Count Lymph % (Auto) [place] % (Auto) Lymph # [place] # Baso # Seg Neutrophils % Seg Neuts % (Manual) Lymphocytes % (Manual) Monocytes % (Manual) Eosinophils % (Manual) Basophils % (Manual) Nucleated RBC % Seg Neutrophils # Seg Neutrophils # Man Lymphocytes # (Manual) Monocytes # (Manual) Eosinophils # (Manual) PT INR Fibrinogen dRVVT Confirm Interp Factor V Activity POC ABG pH POC ABG pCO2 POC ABG pO2 ABG pO2 ABG HCO3 ABG Hemoglobin Oxyhemoglobin Sodium Potassium Chloride Carbon Dioxide BUN 58 H Creatinine 1.9 H Glucose 169 H POC Glucose 195 H Lactic Acid Calcium Phosphorus Magnesium Direct Bilirubin AST ALT Alkaline Phosphatase Lactate Dehydrogenase Troponin T C-Reactive Protein Total Protein Albumin Prealbumin Triglycerides Cholesterol LDL Cholesterol Direct HDL Cholesterol Urine pH Urine WBC (Auto) Urine Creatinine Urine Total Protein Fluid Total Protein Vancomycin Trough Rheumatoid Factor Complement C4 Miscellaneous Test Crossmatch 10/14/16 10/14/16 10/14/16 11:44 17:13 23:28 WBC RBC Hgb Hct MCV MCH MCHC RDW Plt Count Lymph % (Auto) [place] % (Auto) Lymph # [place] # Baso # Seg Neutrophils % Seg Neuts % (Manual) Lymphocytes % (Manual) Monocytes % (Manual) Eosinophils % (Manual) Basophils % (Manual) Nucleated RBC % Seg Neutrophils # Seg Neutrophils # Man Lymphocytes # (Manual) Monocytes # (Manual) Eosinophils # (Manual) PT INR Fibrinogen dRVVT Confirm Interp Factor V Activity POC ABG pH POC ABG pCO2 POC ABG pO2 ABG pO2 ABG HCO3 ABG Hemoglobin Oxyhemoglobin Sodium Potassium Chloride Carbon Dioxide BUN Creatinine Glucose POC Glucose 174 H 121 H 151 H Lactic Acid Calcium Phosphorus Magnesium Direct Bilirubin AST ALT Alkaline Phosphatase Lactate Dehydrogenase Troponin T C-Reactive Protein Total Protein Albumin Prealbumin Triglycerides Cholesterol LDL Cholesterol Direct HDL Cholesterol Urine pH Urine WBC (Auto) Urine Creatinine Urine Total Protein Fluid Total Protein Vancomycin Trough Rheumatoid Factor Complement C4 Miscellaneous Test Crossmatch 10/15/16 10/15/16 10/15/16 05:06 12:26 17:48 WBC RBC Hgb Hct MCV MCH MCHC RDW Plt Count Lymph % (Auto) [place] % (Auto) Lymph # [place] # Baso # Seg Neutrophils % Seg Neuts % (Manual) Lymphocytes % (Manual) Monocytes % (Manual) Eosinophils % (Manual) Basophils % (Manual) Nucleated RBC % Seg Neutrophils # Seg Neutrophils # Man Lymphocytes # (Manual) Monocytes # (Manual) Eosinophils # (Manual) PT INR Fibrinogen dRVVT Confirm Interp Factor V Activity POC ABG pH POC ABG pCO2 POC ABG pO2 ABG pO2 ABG HCO3 ABG Hemoglobin Oxyhemoglobin Sodium Potassium Chloride Carbon Dioxide BUN Creatinine Glucose POC Glucose 151 H 149 H 153 H Lactic Acid Calcium Phosphorus Magnesium Direct Bilirubin AST ALT Alkaline Phosphatase Lactate Dehydrogenase Troponin T C-Reactive Protein Total Protein Albumin Prealbumin Triglycerides Cholesterol LDL Cholesterol Direct HDL Cholesterol Urine pH Urine WBC (Auto) Urine Creatinine Urine Total Protein Fluid Total Protein Vancomycin Trough Rheumatoid Factor Complement C4 Miscellaneous Test Crossmatch 10/15/16 10/15/16 10/16/16 Unknown Unknown 00:02 WBC 23.4 H RBC 2.78 L Hgb 8.5 L Hct 25.7 L MCV MCH MCHC RDW 18.7 H Plt Count Lymph % (Auto) [place] % (Auto) Lymph # [place] # Baso # Seg Neutrophils % Seg Neuts % (Manual) Lymphocytes % (Manual) Monocytes % (Manual) Eosinophils % (Manual) Basophils % (Manual) Nucleated RBC % Seg Neutrophils # Seg Neutrophils # Man Lymphocytes # (Manual) Monocytes # (Manual) Eosinophils # (Manual) PT INR Fibrinogen dRVVT Confirm Interp Factor V Activity POC ABG pH POC ABG pCO2 POC ABG pO2 ABG pO2 ABG HCO3 ABG Hemoglobin Oxyhemoglobin Sodium Potassium Chloride Carbon Dioxide BUN 73 H Creatinine 2.3 H Glucose 120 H POC Glucose 137 H Lactic Acid Calcium Phosphorus Magnesium Direct Bilirubin AST ALT Alkaline Phosphatase Lactate Dehydrogenase Troponin T C-Reactive Protein Total Protein Albumin Prealbumin Triglycerides Cholesterol LDL Cholesterol Direct HDL Cholesterol Urine pH Urine WBC (Auto) Urine Creatinine Urine Total Protein Fluid Total Protein Vancomycin Trough Rheumatoid Factor Complement C4 Miscellaneous Test Crossmatch 10/16/16 10/16/16 10/16/16 05:44 06:25 06:25 WBC 22.5 H RBC 2.76 L Hgb 8.3 L Hct 25.2 L MCV MCH MCHC RDW 18.3 H Plt Count Lymph % (Auto) [place] % (Auto) Lymph # [place] # Baso # Seg Neutrophils % Seg Neuts % (Manual) Lymphocytes % (Manual) Monocytes % (Manual) Eosinophils % (Manual) Basophils % (Manual) Nucleated RBC % Seg Neutrophils # Seg Neutrophils # Man Lymphocytes # (Manual) Monocytes # (Manual) Eosinophils # (Manual) PT INR Fibrinogen dRVVT Confirm Interp Factor V Activity POC ABG pH POC ABG pCO2 POC ABG pO2 ABG pO2 ABG HCO3 ABG Hemoglobin Oxyhemoglobin Sodium Potassium Chloride Carbon Dioxide BUN 92 H Creatinine 3.0 H Glucose 138 H POC Glucose 110 H Lactic Acid Calcium Phosphorus Magnesium Direct Bilirubin AST ALT Alkaline Phosphatase Lactate Dehydrogenase Troponin T C-Reactive Protein Total Protein Albumin Prealbumin Triglycerides Cholesterol LDL Cholesterol Direct HDL Cholesterol Urine pH Urine WBC (Auto) Urine Creatinine Urine Total Protein Fluid Total Protein Vancomycin Trough Rheumatoid Factor Complement C4 Miscellaneous Test Crossmatch 10/16/16 10/16/16 10/16/16 11:27 11:48 17:36 WBC RBC Hgb Hct MCV MCH MCHC RDW Plt Count Lymph % (Auto) [place] % (Auto) Lymph # [place] # Baso # Seg Neutrophils % Seg Neuts % (Manual) Lymphocytes % (Manual) Monocytes % (Manual) Eosinophils % (Manual) Basophils % (Manual) Nucleated RBC % Seg Neutrophils # Seg Neutrophils # Man Lymphocytes # (Manual) Monocytes # (Manual) Eosinophils # (Manual) PT INR Fibrinogen dRVVT Confirm Interp Factor V Activity POC ABG pH 7.582 H POC ABG pCO2 27.4 L POC ABG pO2 110 H ABG pO2 ABG HCO3 ABG Hemoglobin Oxyhemoglobin Sodium Potassium Chloride Carbon Dioxide BUN Creatinine Glucose POC Glucose 121 H 133 H Lactic Acid Calcium Phosphorus Magnesium Direct Bilirubin AST ALT Alkaline Phosphatase Lactate Dehydrogenase Troponin T C-Reactive Protein Total Protein Albumin Prealbumin Triglycerides Cholesterol LDL Cholesterol Direct HDL Cholesterol Urine pH Urine WBC (Auto) Urine Creatinine Urine Total Protein Fluid Total Protein Vancomycin Trough Rheumatoid Factor Complement C4 Miscellaneous Test Crossmatch 10/16/16 10/17/16 10/17/16 20:48 04:24 04:24 WBC 21.4 H RBC 2.72 L Hgb 8.0 L Hct 25.2 L MCV MCH MCHC RDW 18.0 H Plt Count Lymph % (Auto) [place] % (Auto) Lymph # [place] # Baso # Seg Neutrophils % Seg Neuts % (Manual) Lymphocytes % (Manual) Monocytes % (Manual) Eosinophils % (Manual) Basophils % (Manual) Nucleated RBC % Seg Neutrophils # Seg Neutrophils # Man Lymphocytes # (Manual) Monocytes # (Manual) Eosinophils # (Manual) PT INR Fibrinogen dRVVT Confirm Interp Factor V Activity POC ABG pH 7.561 H POC ABG pCO2 24.4 L POC ABG pO2 77 L ABG pO2 ABG HCO3 ABG Hemoglobin Oxyhemoglobin Sodium 148 H Potassium Chloride Carbon Dioxide BUN 104 H Creatinine 3.0 H Glucose 149 H POC Glucose Lactic Acid Calcium Phosphorus Magnesium Direct Bilirubin AST ALT Alkaline Phosphatase 138 H Lactate Dehydrogenase Troponin T C-Reactive Protein Total Protein 6.2 L Albumin 1.5 L Prealbumin Triglycerides Cholesterol LDL Cholesterol Direct HDL Cholesterol Urine pH Urine WBC (Auto) Urine Creatinine Urine Total Protein Fluid Total Protein Vancomycin Trough Rheumatoid Factor Complement C4 Miscellaneous Test Crossmatch 10/17/16 10/17/16 10/17/16 06:02 12:17 17:14 WBC RBC Hgb Hct MCV MCH MCHC RDW Plt Count Lymph % (Auto) [place] % (Auto) Lymph # [place] # Baso # Seg Neutrophils % Seg Neuts % (Manual) Lymphocytes % (Manual) Monocytes % (Manual) Eosinophils % (Manual) Basophils % (Manual) Nucleated RBC % Seg Neutrophils # Seg Neutrophils # Man Lymphocytes # (Manual) Monocytes # (Manual) Eosinophils # (Manual) PT INR Fibrinogen dRVVT Confirm Interp Factor V Activity POC ABG pH POC ABG pCO2 POC ABG pO2 ABG pO2 ABG HCO3 ABG Hemoglobin Oxyhemoglobin Sodium Potassium Chloride Carbon Dioxide BUN Creatinine Glucose POC Glucose 170 H 167 H 126 H Lactic Acid Calcium Phosphorus Magnesium Direct Bilirubin AST ALT Alkaline Phosphatase Lactate Dehydrogenase Troponin T C-Reactive Protein Total Protein Albumin Prealbumin Triglycerides Cholesterol LDL Cholesterol Direct HDL Cholesterol Urine pH Urine WBC (Auto) Urine Creatinine Urine Total Protein Fluid Total Protein Vancomycin Trough Rheumatoid Factor Complement C4 Miscellaneous Test Crossmatch 10/17/16 10/18/16 10/18/16 23:17 04:00 04:00 WBC 20.7 H RBC 2.47 L Hgb 7.4 L Hct 22.9 L MCV MCH MCHC RDW 17.5 H Plt Count Lymph % (Auto) [place] % (Auto) Lymph # [place] # Baso # Seg Neutrophils % Seg Neuts % (Manual) Lymphocytes % (Manual) Monocytes % (Manual) Eosinophils % (Manual) Basophils % (Manual) Nucleated RBC % Seg Neutrophils # Seg Neutrophils # Man Lymphocytes # (Manual) Monocytes # (Manual) Eosinophils # (Manual) PT INR Fibrinogen dRVVT Confirm Interp Factor V Activity POC ABG pH POC ABG pCO2 POC ABG pO2 ABG pO2 ABG HCO3 ABG Hemoglobin Oxyhemoglobin Sodium 149 H Potassium Chloride 107.9 H Carbon Dioxide 20 L BUN 117 H Creatinine 3.2 H Glucose 119 H POC Glucose 121 H Lactic Acid Calcium Phosphorus Magnesium Direct Bilirubin AST ALT Alkaline Phosphatase Lactate Dehydrogenase Troponin T C-Reactive Protein Total Protein Albumin Prealbumin Triglycerides Cholesterol LDL Cholesterol Direct HDL Cholesterol Urine pH Urine WBC (Auto) Urine Creatinine Urine Total Protein Fluid Total Protein Vancomycin Trough Rheumatoid Factor Complement C4 Miscellaneous Test Crossmatch 10/18/16 10/18/16 10/18/16 05:23 10:46 17:30 WBC RBC Hgb Hct MCV MCH MCHC RDW Plt Count Lymph % (Auto) [place] % (Auto) Lymph # [place] # Baso # Seg Neutrophils % Seg Neuts % (Manual) Lymphocytes % (Manual) Monocytes % (Manual) Eosinophils % (Manual) Basophils % (Manual) Nucleated RBC % Seg Neutrophils # Seg Neutrophils # Man Lymphocytes # (Manual) Monocytes # (Manual) Eosinophils # (Manual) PT INR Fibrinogen dRVVT Confirm Interp Factor V Activity POC ABG pH POC ABG pCO2 POC ABG pO2 ABG pO2 ABG HCO3 ABG Hemoglobin Oxyhemoglobin Sodium Potassium Chloride Carbon Dioxide BUN Creatinine Glucose POC Glucose 119 H 155 H 124 H Lactic Acid Calcium Phosphorus Magnesium Direct Bilirubin AST ALT Alkaline Phosphatase Lactate Dehydrogenase Troponin T C-Reactive Protein Total Protein Albumin Prealbumin Triglycerides Cholesterol LDL Cholesterol Direct HDL Cholesterol Urine pH Urine WBC (Auto) Urine Creatinine Urine Total Protein Fluid Total Protein Vancomycin Trough Rheumatoid Factor Complement C4 Miscellaneous Test Crossmatch 10/19/16 10/19/16 10/19/16 04:00 04:00 05:25 WBC 17.4 H RBC 2.54 L Hgb 7.7 L Hct 23.6 L MCV MCH MCHC RDW 17.3 H Plt Count Lymph % (Auto) [place] % (Auto) Lymph # [place] # Baso # Seg Neutrophils % Seg Neuts % (Manual) Lymphocytes % (Manual) Monocytes % (Manual) Eosinophils % (Manual) Basophils % (Manual) Nucleated RBC % Seg Neutrophils # Seg Neutrophils # Man Lymphocytes # (Manual) Monocytes # (Manual) Eosinophils # (Manual) PT INR Fibrinogen dRVVT Confirm Interp Factor V Activity POC ABG pH POC ABG pCO2 POC ABG pO2 ABG pO2 ABG HCO3 ABG Hemoglobin Oxyhemoglobin Sodium Potassium Chloride Carbon Dioxide BUN 72 H Creatinine 2.1 H Glucose 116 H POC Glucose 119 H Lactic Acid Calcium Phosphorus Magnesium Direct Bilirubin AST ALT Alkaline Phosphatase Lactate Dehydrogenase Troponin T C-Reactive Protein Total Protein Albumin Prealbumin Triglycerides Cholesterol LDL Cholesterol Direct HDL Cholesterol Urine pH Urine WBC (Auto) Urine Creatinine Urine Total Protein Fluid Total Protein Vancomycin Trough Rheumatoid Factor Complement C4 Miscellaneous Test Crossmatch 10/19/16 10/19/16 10/20/16 11:46 23:59 06:00 WBC RBC Hgb Hct MCV MCH MCHC RDW Plt Count Lymph % (Auto) [place] % (Auto) Lymph # [place] # Baso # Seg Neutrophils % Seg Neuts % (Manual) Lymphocytes % (Manual) Monocytes % (Manual) Eosinophils % (Manual) Basophils % (Manual) Nucleated RBC % Seg Neutrophils # Seg Neutrophils # Man Lymphocytes # (Manual) Monocytes # (Manual) Eosinophils # (Manual) PT INR Fibrinogen dRVVT Confirm Interp Factor V Activity POC ABG pH POC ABG pCO2 POC ABG pO2 ABG pO2 ABG HCO3 ABG Hemoglobin Oxyhemoglobin Sodium Potassium Chloride Carbon Dioxide 17 L BUN 94 H Creatinine 2.7 H Glucose POC Glucose 116 H 117 H Lactic Acid Calcium Phosphorus Magnesium Direct Bilirubin AST ALT Alkaline Phosphatase Lactate Dehydrogenase Troponin T C-Reactive Protein Total Protein Albumin Prealbumin Triglycerides Cholesterol LDL Cholesterol Direct HDL Cholesterol Urine pH Urine WBC (Auto) Urine Creatinine Urine Total Protein Fluid Total Protein Vancomycin Trough Rheumatoid Factor Complement C4 Miscellaneous Test Crossmatch 10/20/16 10/20/16 10/20/16 06:00 11:49 16:00 WBC 19.7 H RBC 2.51 L Hgb 7.7 L Hct 23.5 L MCV MCH MCHC RDW 17.5 H Plt Count Lymph % (Auto) [place] % (Auto) Lymph # [place] # Baso # Seg Neutrophils % Seg Neuts % (Manual) Lymphocytes % (Manual) Monocytes % (Manual) Eosinophils % (Manual) Basophils % (Manual) Nucleated RBC % Seg Neutrophils # Seg Neutrophils # Man Lymphocytes # (Manual) Monocytes # (Manual) Eosinophils # (Manual) PT INR Fibrinogen dRVVT Confirm Interp Factor V Activity POC ABG pH POC ABG pCO2 POC ABG pO2 ABG pO2 ABG HCO3 ABG Hemoglobin Oxyhemoglobin Sodium Potassium Chloride Carbon Dioxide BUN Creatinine Glucose POC Glucose 117 H Lactic Acid Calcium Phosphorus Magnesium Direct Bilirubin AST ALT Alkaline Phosphatase Lactate Dehydrogenase Troponin T C-Reactive Protein Total Protein Albumin Prealbumin Triglycerides Cholesterol LDL Cholesterol Direct HDL Cholesterol Urine pH Urine WBC (Auto) Urine Creatinine Urine Total Protein Fluid Total Protein Vancomycin Trough Rheumatoid Factor Complement C4 Miscellaneous Test Flexitest 1 H Crossmatch 10/20/16 10/20/16 10/21/16 18:36 23:39 04:00 WBC RBC Hgb Hct MCV MCH MCHC RDW Plt Count Lymph % (Auto) [place] % (Auto) Lymph # [place] # Baso # Seg Neutrophils % Seg Neuts % (Manual) Lymphocytes % (Manual) Monocytes % (Manual) Eosinophils % (Manual) Basophils % (Manual) Nucleated RBC % Seg Neutrophils # Seg Neutrophils # Man Lymphocytes # (Manual) Monocytes # (Manual) Eosinophils # (Manual) PT INR Fibrinogen dRVVT Confirm Interp Factor V Activity POC ABG pH POC ABG pCO2 POC ABG pO2 ABG pO2 ABG HCO3 ABG Hemoglobin Oxyhemoglobin Sodium Potassium 5.4 H D Chloride Carbon Dioxide 15 L BUN 110 H Creatinine 3.0 H Glucose POC Glucose 127 H 114 H Lactic Acid Calcium Phosphorus Magnesium Direct Bilirubin AST ALT Alkaline Phosphatase Lactate Dehydrogenase Troponin T C-Reactive Protein Total Protein Albumin Prealbumin Triglycerides Cholesterol LDL Cholesterol Direct HDL Cholesterol Urine pH Urine WBC (Auto) Urine Creatinine Urine Total Protein Fluid Total Protein Vancomycin Trough Rheumatoid Factor Complement C4 Miscellaneous Test Crossmatch 10/21/16 10/21/16 10/22/16 05:54 23:46 05:18 WBC RBC Hgb Hct MCV MCH MCHC RDW Plt Count Lymph % (Auto) [place] % (Auto) Lymph # [place] # Baso # Seg Neutrophils % Seg Neuts % (Manual) Lymphocytes % (Manual) Monocytes % (Manual) Eosinophils % (Manual) Basophils % (Manual) Nucleated RBC % Seg Neutrophils # Seg Neutrophils # Man Lymphocytes # (Manual) Monocytes # (Manual) Eosinophils # (Manual) PT INR Fibrinogen dRVVT Confirm Interp Factor V Activity POC ABG pH POC ABG pCO2 POC ABG pO2 ABG pO2 ABG HCO3 ABG Hemoglobin Oxyhemoglobin Sodium Potassium Chloride Carbon Dioxide BUN Creatinine Glucose POC Glucose 119 H 108 H 109 H Lactic Acid Calcium Phosphorus Magnesium Direct Bilirubin AST ALT Alkaline Phosphatase Lactate Dehydrogenase Troponin T C-Reactive Protein Total Protein Albumin Prealbumin Triglycerides Cholesterol LDL Cholesterol Direct HDL Cholesterol Urine pH Urine WBC (Auto) Urine Creatinine Urine Total Protein Fluid Total Protein Vancomycin Trough Rheumatoid Factor Complement C4 Miscellaneous Test Crossmatch 10/22/16 10/22/16 10/22/16 06:40 06:40 06:40 WBC 14.0 H RBC 2.03 L Hgb 7.0 L Hct 20.5 L MCV 98 H MCH 34 H MCHC 35 H RDW 17.8 H Plt Count Lymph % (Auto) [place] % (Auto) 9.9 H Lymph # [place] # 1.4 H Baso # 0.2 H Seg Neutrophils % 72.0 H Seg Neuts % (Manual) Lymphocytes % (Manual) Monocytes % (Manual) Eosinophils % (Manual) Basophils % (Manual) Nucleated RBC % Seg Neutrophils # 10.0 H Seg Neutrophils # Man Lymphocytes # (Manual) Monocytes # (Manual) Eosinophils # (Manual) PT INR Fibrinogen dRVVT Confirm Interp Factor V Activity POC ABG pH POC ABG pCO2 POC ABG pO2 ABG pO2 ABG HCO3 ABG Hemoglobin Oxyhemoglobin Sodium 130 L D Potassium Chloride 92.4 L Carbon Dioxide 20 L BUN 50 H Creatinine 1.6 H Glucose 589 H* POC Glucose Lactic Acid Calcium 7.8 L D Phosphorus Magnesium 1.60 L Direct Bilirubin AST ALT Alkaline Phosphatase Lactate Dehydrogenase Troponin T C-Reactive Protein Total Protein Albumin Prealbumin Triglycerides Cholesterol LDL Cholesterol Direct HDL Cholesterol Urine pH Urine WBC (Auto) Urine Creatinine Urine Total Protein Fluid Total Protein Vancomycin Trough Rheumatoid Factor Complement C4 Miscellaneous Test Crossmatch 10/22/16 10/22/16 10/22/16 11:39 16:44 23:36 WBC RBC Hgb Hct MCV MCH MCHC RDW Plt Count Lymph % (Auto) [place] % (Auto) Lymph # [place] # Baso # Seg Neutrophils % Seg Neuts % (Manual) Lymphocytes % (Manual) Monocytes % (Manual) Eosinophils % (Manual) Basophils % (Manual) Nucleated RBC % Seg Neutrophils # Seg Neutrophils # Man Lymphocytes # (Manual) Monocytes # (Manual) Eosinophils # (Manual) PT INR Fibrinogen dRVVT Confirm Interp Factor V Activity POC ABG pH POC ABG pCO2 POC ABG pO2 ABG pO2 ABG HCO3 ABG Hemoglobin Oxyhemoglobin Sodium Potassium Chloride Carbon Dioxide BUN Creatinine Glucose POC Glucose 142 H 163 H 123 H Lactic Acid Calcium Phosphorus Magnesium Direct Bilirubin AST ALT Alkaline Phosphatase Lactate Dehydrogenase Troponin T C-Reactive Protein Total Protein Albumin Prealbumin Triglycerides Cholesterol LDL Cholesterol Direct HDL Cholesterol Urine pH Urine WBC (Auto) Urine Creatinine Urine Total Protein Fluid Total Protein Vancomycin Trough Rheumatoid Factor Complement C4 Miscellaneous Test Crossmatch 10/23/16 10/23/16 10/23/16 04:58 06:00 12:12 WBC RBC Hgb Hct MCV MCH MCHC RDW Plt Count Lymph % (Auto) [place] % (Auto) Lymph # [place] # Baso # Seg Neutrophils % Seg Neuts % (Manual) Lymphocytes % (Manual) Monocytes % (Manual) Eosinophils % (Manual) Basophils % (Manual) Nucleated RBC % Seg Neutrophils # Seg Neutrophils # Man Lymphocytes # (Manual) Monocytes # (Manual) Eosinophils # (Manual) PT INR Fibrinogen dRVVT Confirm Interp Factor V Activity POC ABG pH POC ABG pCO2 POC ABG pO2 ABG pO2 ABG HCO3 ABG Hemoglobin Oxyhemoglobin Sodium 133 L Potassium 3.5 L Chloride 96.1 L Carbon Dioxide 18 L BUN 76 H Creatinine 2.1 H Glucose POC Glucose 133 H 138 H Lactic Acid Calcium 8.3 L Phosphorus Magnesium Direct Bilirubin AST ALT Alkaline Phosphatase Lactate Dehydrogenase Troponin T C-Reactive Protein Total Protein Albumin Prealbumin Triglycerides Cholesterol LDL Cholesterol Direct HDL Cholesterol Urine pH Urine WBC (Auto) Urine Creatinine Urine Total Protein Fluid Total Protein Vancomycin Trough Rheumatoid Factor Complement C4 Miscellaneous Test Crossmatch 10/23/16 10/23/16 10/24/16 16:53 23:37 04:00 WBC RBC Hgb Hct MCV MCH MCHC RDW Plt Count Lymph % (Auto) [place] % (Auto) Lymph # [place] # Baso # Seg Neutrophils % Seg Neuts % (Manual) Lymphocytes % (Manual) Monocytes % (Manual) Eosinophils % (Manual) Basophils % (Manual) Nucleated RBC % Seg Neutrophils # Seg Neutrophils # Man Lymphocytes # (Manual) Monocytes # (Manual) Eosinophils # (Manual) PT INR Fibrinogen dRVVT Confirm Interp Factor V Activity POC ABG pH POC ABG pCO2 POC ABG pO2 ABG pO2 ABG HCO3 ABG Hemoglobin Oxyhemoglobin Sodium 131 L Potassium Chloride 94.5 L Carbon Dioxide 19 L BUN 97 H Creatinine 2.6 H Glucose 110 H POC Glucose 125 H 123 H Lactic Acid Calcium 8.3 L Phosphorus Magnesium Direct Bilirubin AST ALT Alkaline Phosphatase Lactate Dehydrogenase Troponin T C-Reactive Protein Total Protein Albumin Prealbumin Triglycerides Cholesterol LDL Cholesterol Direct HDL Cholesterol Urine pH Urine WBC (Auto) Urine Creatinine Urine Total Protein Fluid Total Protein Vancomycin Trough Rheumatoid Factor Complement C4 Miscellaneous Test Crossmatch 10/24/16 10/24/16 10/24/16 07:49 11:39 17:52 WBC RBC Hgb 6.0 L Hct 19.7 L* MCV MCH MCHC RDW Plt Count Lymph % (Auto) [place] % (Auto) Lymph # [place] # Baso # Seg Neutrophils % Seg Neuts % (Manual) Lymphocytes % (Manual) Monocytes % (Manual) Eosinophils % (Manual) Basophils % (Manual) Nucleated RBC % Seg Neutrophils # Seg Neutrophils # Man Lymphocytes # (Manual) Monocytes # (Manual) Eosinophils # (Manual) PT INR Fibrinogen dRVVT Confirm Interp Factor V Activity POC ABG pH POC ABG pCO2 POC ABG pO2 ABG pO2 ABG HCO3 ABG Hemoglobin Oxyhemoglobin Sodium Potassium Chloride Carbon Dioxide BUN Creatinine Glucose POC Glucose 106 H 158 H Lactic Acid Calcium Phosphorus Magnesium Direct Bilirubin AST ALT Alkaline Phosphatase Lactate Dehydrogenase Troponin T C-Reactive Protein Total Protein Albumin Prealbumin Triglycerides Cholesterol LDL Cholesterol Direct HDL Cholesterol Urine pH Urine WBC (Auto) Urine Creatinine Urine Total Protein Fluid Total Protein Vancomycin Trough Rheumatoid Factor Complement C4 Miscellaneous Test Crossmatch 10/24/16 10/24/16 10/24/16 20:00 22:27 Unknown WBC RBC Hgb 9.4 L D Hct 27.5 L D MCV MCH MCHC RDW Plt Count Lymph % (Auto) [place] % (Auto) Lymph # [place] # Baso # Seg Neutrophils % Seg Neuts % (Manual) Lymphocytes % (Manual) Monocytes % (Manual) Eosinophils % (Manual) Basophils % (Manual) Nucleated RBC % Seg Neutrophils # Seg Neutrophils # Man Lymphocytes # (Manual) Monocytes # (Manual) Eosinophils # (Manual) PT INR Fibrinogen dRVVT Confirm Interp Factor V Activity POC ABG pH POC ABG pCO2 POC ABG pO2 ABG pO2 ABG HCO3 ABG Hemoglobin Oxyhemoglobin Sodium Potassium Chloride Carbon Dioxide BUN Creatinine Glucose POC Glucose 125 H Lactic Acid Calcium Phosphorus Magnesium Direct Bilirubin AST ALT Alkaline Phosphatase Lactate Dehydrogenase Troponin T C-Reactive Protein Total Protein Albumin Prealbumin Triglycerides Cholesterol LDL Cholesterol Direct HDL Cholesterol Urine pH Urine WBC (Auto) Urine Creatinine Urine Total Protein Fluid Total Protein Vancomycin Trough Rheumatoid Factor Complement C4 Miscellaneous Test Crossmatch See Detail 10/25/16 10/25/16 10/25/16 04:00 04:00 04:00 WBC 14.2 H RBC 2.98 L Hgb 9.0 L Hct 26.2 L MCV MCH MCHC RDW 16.6 H Plt Count Lymph % (Auto) [place] % (Auto) 10.7 H Lymph # [place] # 1.5 H Baso # Seg Neutrophils % 73.6 H Seg Neuts % (Manual) Lymphocytes % (Manual) Monocytes % (Manual) Eosinophils % (Manual) Basophils % (Manual) Nucleated RBC % Seg Neutrophils # 10.5 H Seg Neutrophils # Man Lymphocytes # (Manual) Monocytes # (Manual) Eosinophils # (Manual) PT INR Fibrinogen dRVVT Confirm Interp Factor V Activity POC ABG pH POC ABG pCO2 POC ABG pO2 ABG pO2 ABG HCO3 ABG Hemoglobin Oxyhemoglobin Sodium 132 L Potassium Chloride 94.7 L Carbon Dioxide BUN 51 H Creatinine 1.6 H Glucose 130 H POC Glucose Lactic Acid Calcium 8.3 L Phosphorus 1.60 L D Magnesium Direct Bilirubin AST ALT Alkaline Phosphatase Lactate Dehydrogenase Troponin T C-Reactive Protein Total Protein Albumin Prealbumin Triglycerides Cholesterol LDL Cholesterol Direct HDL Cholesterol Urine pH Urine WBC (Auto) Urine Creatinine Urine Total Protein Fluid Total Protein Vancomycin Trough Rheumatoid Factor Complement C4 Miscellaneous Test Crossmatch 10/25/16 10/25/16 10/25/16 04:32 11:48 17:22 WBC RBC Hgb Hct MCV MCH MCHC RDW Plt Count Lymph % (Auto) [place] % (Auto) Lymph # [place] # Baso # Seg Neutrophils % Seg Neuts % (Manual) Lymphocytes % (Manual) Monocytes % (Manual) Eosinophils % (Manual) Basophils % (Manual) Nucleated RBC % Seg Neutrophils # Seg Neutrophils # Man Lymphocytes # (Manual) Monocytes # (Manual) Eosinophils # (Manual) PT INR Fibrinogen dRVVT Confirm Interp Factor V Activity POC ABG pH POC ABG pCO2 POC ABG pO2 ABG pO2 ABG HCO3 ABG Hemoglobin Oxyhemoglobin Sodium Potassium Chloride Carbon Dioxide BUN Creatinine Glucose POC Glucose 124 H 171 H 120 H Lactic Acid Calcium Phosphorus Magnesium Direct Bilirubin AST ALT Alkaline Phosphatase Lactate Dehydrogenase Troponin T C-Reactive Protein Total Protein Albumin Prealbumin Triglycerides Cholesterol LDL Cholesterol Direct HDL Cholesterol Urine pH Urine WBC (Auto) Urine Creatinine Urine Total Protein Fluid Total Protein Vancomycin Trough Rheumatoid Factor Complement C4 Miscellaneous Test Crossmatch 10/26/16 10/26/16 10/26/16 04:54 07:06 07:06 WBC 16.9 H RBC 3.06 L Hgb 9.1 L Hct 26.9 L MCV MCH MCHC RDW 16.9 H Plt Count Lymph % (Auto) [place] % (Auto) Lymph # [place] # Baso # Seg Neutrophils % Seg Neuts % (Manual) 71.0 H Lymphocytes % (Manual) 5.0 L Monocytes % (Manual) 12.0 H Eosinophils % (Manual) Basophils % (Manual) Nucleated RBC % Seg Neutrophils # Seg Neutrophils # Man 12.0 H Lymphocytes # (Manual) 0.8 L Monocytes # (Manual) 2.0 H Eosinophils # (Manual) PT INR Fibrinogen dRVVT Confirm Interp Factor V Activity POC ABG pH POC ABG pCO2 POC ABG pO2 ABG pO2 ABG HCO3 ABG Hemoglobin Oxyhemoglobin Sodium 135 L Potassium Chloride 97.1 L Carbon Dioxide BUN 73 H Creatinine 2.2 H Glucose 117 H POC Glucose 123 H Lactic Acid Calcium Phosphorus 1.70 L Magnesium Direct Bilirubin AST ALT Alkaline Phosphatase Lactate Dehydrogenase Troponin T C-Reactive Protein Total Protein Albumin Prealbumin Triglycerides Cholesterol LDL Cholesterol Direct HDL Cholesterol Urine pH Urine WBC (Auto) Urine Creatinine Urine Total Protein Fluid Total Protein Vancomycin Trough Rheumatoid Factor Complement C4 Miscellaneous Test Crossmatch 10/26/16 10/26/16 10/26/16 12:12 17:29 23:42 WBC RBC Hgb Hct MCV MCH MCHC RDW Plt Count Lymph % (Auto) [place] % (Auto) Lymph # [place] # Baso # Seg Neutrophils % Seg Neuts % (Manual) Lymphocytes % (Manual) Monocytes % (Manual) Eosinophils % (Manual) Basophils % (Manual) Nucleated RBC % Seg Neutrophils # Seg Neutrophils # Man Lymphocytes # (Manual) Monocytes # (Manual) Eosinophils # (Manual) PT INR Fibrinogen dRVVT Confirm Interp Factor V Activity POC ABG pH POC ABG pCO2 POC ABG pO2 ABG pO2 ABG HCO3 ABG Hemoglobin Oxyhemoglobin Sodium Potassium Chloride Carbon Dioxide BUN Creatinine Glucose POC Glucose 126 H 161 H 118 H Lactic Acid Calcium Phosphorus Magnesium Direct Bilirubin AST ALT Alkaline Phosphatase Lactate Dehydrogenase Troponin T C-Reactive Protein Total Protein Albumin Prealbumin Triglycerides Cholesterol LDL Cholesterol Direct HDL Cholesterol Urine pH Urine WBC (Auto) Urine Creatinine Urine Total Protein Fluid Total Protein Vancomycin Trough Rheumatoid Factor Complement C4 Miscellaneous Test Crossmatch 10/27/16 10/27/16 10/27/16 05:03 06:30 06:30 WBC 13.9 H RBC 3.09 L Hgb 9.2 L Hct 27.5 L MCV MCH MCHC RDW 17.0 H Plt Count Lymph % (Auto) [place] % (Auto) Lymph # [place] # Baso # Seg Neutrophils % Seg Neuts % (Manual) 78.0 H Lymphocytes % (Manual) Monocytes % (Manual) Eosinophils % (Manual) Basophils % (Manual) Nucleated RBC % 2.0 H Seg Neutrophils # Seg Neutrophils # Man 10.8 H Lymphocytes # (Manual) Monocytes # (Manual) 1.0 H Eosinophils # (Manual) PT INR Fibrinogen dRVVT Confirm Interp Factor V Activity POC ABG pH POC ABG pCO2 POC ABG pO2 ABG pO2 ABG HCO3 ABG Hemoglobin Oxyhemoglobin Sodium Potassium Chloride Carbon Dioxide BUN 40 H Creatinine 1.5 H Glucose 135 H POC Glucose 107 H Lactic Acid Calcium 8.3 L Phosphorus 1.30 L D Magnesium Direct Bilirubin AST ALT Alkaline Phosphatase Lactate Dehydrogenase Troponin T C-Reactive Protein Total Protein Albumin Prealbumin Triglycerides Cholesterol LDL Cholesterol Direct HDL Cholesterol Urine pH Urine WBC (Auto) Urine Creatinine Urine Total Protein Fluid Total Protein Vancomycin Trough Rheumatoid Factor Complement C4 Miscellaneous Test Crossmatch 10/27/16 10/27/16 10/27/16 13:27 18:07 23:40 WBC RBC Hgb Hct MCV MCH MCHC RDW Plt Count Lymph % (Auto) [place] % (Auto) Lymph # [place] # Baso # Seg Neutrophils % Seg Neuts % (Manual) Lymphocytes % (Manual) Monocytes % (Manual) Eosinophils % (Manual) Basophils % (Manual) Nucleated RBC % Seg Neutrophils # Seg Neutrophils # Man Lymphocytes # (Manual) Monocytes # (Manual) Eosinophils # (Manual) PT INR Fibrinogen dRVVT Confirm Interp Factor V Activity POC ABG pH POC ABG pCO2 POC ABG pO2 ABG pO2 ABG HCO3 ABG Hemoglobin Oxyhemoglobin Sodium Potassium Chloride Carbon Dioxide BUN Creatinine Glucose POC Glucose 117 H 121 H 118 H Lactic Acid Calcium Phosphorus Magnesium Direct Bilirubin AST ALT Alkaline Phosphatase Lactate Dehydrogenase Troponin T C-Reactive Protein Total Protein Albumin Prealbumin Triglycerides Cholesterol LDL Cholesterol Direct HDL Cholesterol Urine pH Urine WBC (Auto) Urine Creatinine Urine Total Protein Fluid Total Protein Vancomycin Trough Rheumatoid Factor Complement C4 Miscellaneous Test Crossmatch 10/28/16 10/28/16 10/28/16 05:48 06:45 06:45 WBC 14.7 H RBC 3.05 L Hgb 9.0 L Hct 26.9 L MCV MCH MCHC RDW 16.8 H Plt Count Lymph % (Auto) 8.2 L [place] % (Auto) 8.4 H Lymph # [place] # 1.2 H Baso # Seg Neutrophils % 81.9 H Seg Neuts % (Manual) Lymphocytes % (Manual) Monocytes % (Manual) Eosinophils % (Manual) Basophils % (Manual) Nucleated RBC % Seg Neutrophils # 12.1 H Seg Neutrophils # Man Lymphocytes # (Manual) Monocytes # (Manual) Eosinophils # (Manual) PT INR Fibrinogen dRVVT Confirm Interp Factor V Activity POC ABG pH POC ABG pCO2 POC ABG pO2 ABG pO2 ABG HCO3 ABG Hemoglobin Oxyhemoglobin Sodium Potassium Chloride Carbon Dioxide BUN 60 H Creatinine 1.9 H Glucose 120 H POC Glucose 114 H Lactic Acid Calcium Phosphorus Magnesium Direct Bilirubin AST ALT Alkaline Phosphatase Lactate Dehydrogenase Troponin T C-Reactive Protein Total Protein Albumin Prealbumin Triglycerides Cholesterol LDL Cholesterol Direct HDL Cholesterol Urine pH Urine WBC (Auto) Urine Creatinine Urine Total Protein Fluid Total Protein Vancomycin Trough Rheumatoid Factor Complement C4 Miscellaneous Test Crossmatch 10/28/16 10/28/16 10/29/16 17:08 23:50 05:10 WBC RBC Hgb Hct MCV MCH MCHC RDW Plt Count Lymph % (Auto) [place] % (Auto) Lymph # [place] # Baso # Seg Neutrophils % Seg Neuts % (Manual) Lymphocytes % (Manual) Monocytes % (Manual) Eosinophils % (Manual) Basophils % (Manual) Nucleated RBC % Seg Neutrophils # Seg Neutrophils # Man Lymphocytes # (Manual) Monocytes # (Manual) Eosinophils # (Manual) PT INR Fibrinogen dRVVT Confirm Interp Factor V Activity POC ABG pH POC ABG pCO2 POC ABG pO2 ABG pO2 ABG HCO3 ABG Hemoglobin Oxyhemoglobin Sodium Potassium Chloride Carbon Dioxide BUN Creatinine Glucose POC Glucose 109 H 110 H 124 H Lactic Acid Calcium Phosphorus Magnesium Direct Bilirubin AST ALT Alkaline Phosphatase Lactate Dehydrogenase Troponin T C-Reactive Protein Total Protein Albumin Prealbumin Triglycerides Cholesterol LDL Cholesterol Direct HDL Cholesterol Urine pH Urine WBC (Auto) Urine Creatinine Urine Total Protein Fluid Total Protein Vancomycin Trough Rheumatoid Factor Complement C4 Miscellaneous Test Crossmatch 10/29/16 10/29/16 10/29/16 07:45 07:45 12:19 WBC 14.7 H RBC 3.15 L Hgb 9.3 L Hct 28.9 L MCV MCH MCHC RDW 17.0 H Plt Count Lymph % (Auto) 11.9 L [place] % (Auto) 8.6 H Lymph # [place] # 1.3 H Baso # Seg Neutrophils % 78.1 H Seg Neuts % (Manual) Lymphocytes % (Manual) Monocytes % (Manual) Eosinophils % (Manual) Basophils % (Manual) Nucleated RBC % Seg Neutrophils # 11.4 H Seg Neutrophils # Man Lymphocytes # (Manual) Monocytes # (Manual) Eosinophils # (Manual) PT INR Fibrinogen dRVVT Confirm Interp Factor V Activity POC ABG pH POC ABG pCO2 POC ABG pO2 ABG pO2 ABG HCO3 ABG Hemoglobin Oxyhemoglobin Sodium Potassium 5.1 H Chloride Carbon Dioxide 19 L BUN 78 H Creatinine 2.2 H Glucose 116 H POC Glucose 118 H Lactic Acid Calcium Phosphorus Magnesium Direct Bilirubin AST ALT Alkaline Phosphatase Lactate Dehydrogenase Troponin T C-Reactive Protein Total Protein Albumin Prealbumin Triglycerides Cholesterol LDL Cholesterol Direct HDL Cholesterol Urine pH Urine WBC (Auto) Urine Creatinine Urine Total Protein Fluid Total Protein Vancomycin Trough Rheumatoid Factor Complement C4 Miscellaneous Test Crossmatch 10/29/16 10/30/16 10/30/16 17:49 01:52 03:28 WBC RBC Hgb Hct MCV MCH MCHC RDW Plt Count Lymph % (Auto) [place] % (Auto) Lymph # [place] # Baso # Seg Neutrophils % Seg Neuts % (Manual) Lymphocytes % (Manual) Monocytes % (Manual) Eosinophils % (Manual) Basophils % (Manual) Nucleated RBC % Seg Neutrophils # Seg Neutrophils # Man Lymphocytes # (Manual) Monocytes # (Manual) Eosinophils # (Manual) PT INR Fibrinogen dRVVT Confirm Interp Factor V Activity POC ABG pH POC ABG pCO2 POC ABG pO2 ABG pO2 ABG HCO3 ABG Hemoglobin Oxyhemoglobin Sodium Potassium 5.4 H Chloride 97.5 L Carbon Dioxide 19 L BUN 90 H Creatinine 2.5 H Glucose POC Glucose 120 H 129 H Lactic Acid Calcium Phosphorus 5.20 H Magnesium Direct Bilirubin AST ALT Alkaline Phosphatase Lactate Dehydrogenase Troponin T C-Reactive Protein Total Protein Albumin Prealbumin Triglycerides Cholesterol LDL Cholesterol Direct HDL Cholesterol Urine pH Urine WBC (Auto) Urine Creatinine Urine Total Protein Fluid Total Protein Vancomycin Trough Rheumatoid Factor Complement C4 Miscellaneous Test Crossmatch 10/30/16 10/30/16 10/30/16 03:28 08:19 08:19 WBC 11.6 H 15.9 H RBC 2.75 L 2.82 L Hgb 7.9 L 8.3 L Hct 24.2 L 25.2 L MCV MCH MCHC RDW 16.7 H 17.2 H Plt Count Lymph % (Auto) [place] % (Auto) 9.8 H Lymph # [place] # 1.1 H Baso # Seg Neutrophils % 74.2 H Seg Neuts % (Manual) Lymphocytes % (Manual) Monocytes % (Manual) Eosinophils % (Manual) Basophils % (Manual) Nucleated RBC % Seg Neutrophils # 8.6 H Seg Neutrophils # Man Lymphocytes # (Manual) Monocytes # (Manual) Eosinophils # (Manual) PT INR Fibrinogen dRVVT Confirm Interp Factor V Activity POC ABG pH POC ABG pCO2 POC ABG pO2 ABG pO2 ABG HCO3 ABG Hemoglobin Oxyhemoglobin Sodium Potassium 5.3 H Chloride 97.4 L Carbon Dioxide 19 L BUN 93 H Creatinine 2.6 H Glucose POC Glucose Lactic Acid Calcium Phosphorus Magnesium Direct Bilirubin AST ALT Alkaline Phosphatase Lactate Dehydrogenase Troponin T C-Reactive Protein Total Protein Albumin Prealbumin Triglycerides Cholesterol LDL Cholesterol Direct HDL Cholesterol Urine pH Urine WBC (Auto) Urine Creatinine Urine Total Protein Fluid Total Protein Vancomycin Trough Rheumatoid Factor Complement C4 Miscellaneous Test Crossmatch 10/30/16 10/30/16 10/31/16 17:11 23:56 00:40 WBC RBC Hgb Hct MCV MCH MCHC RDW Plt Count Lymph % (Auto) [place] % (Auto) Lymph # [place] # Baso # Seg Neutrophils % Seg Neuts % (Manual) Lymphocytes % (Manual) Monocytes % (Manual) Eosinophils % (Manual) Basophils % (Manual) Nucleated RBC % Seg Neutrophils # Seg Neutrophils # Man Lymphocytes # (Manual) Monocytes # (Manual) Eosinophils # (Manual) PT INR Fibrinogen dRVVT Confirm Interp Factor V Activity POC ABG pH POC ABG pCO2 POC ABG pO2 ABG pO2 ABG HCO3 ABG Hemoglobin Oxyhemoglobin Sodium Potassium Chloride Carbon Dioxide BUN Creatinine Glucose POC Glucose 106 H 117 H 120 H Lactic Acid Calcium Phosphorus Magnesium Direct Bilirubin AST ALT Alkaline Phosphatase Lactate Dehydrogenase Troponin T C-Reactive Protein Total Protein Albumin Prealbumin Triglycerides Cholesterol LDL Cholesterol Direct HDL Cholesterol Urine pH Urine WBC (Auto) Urine Creatinine Urine Total Protein Fluid Total Protein Vancomycin Trough Rheumatoid Factor Complement C4 Miscellaneous Test Crossmatch 10/31/16 10/31/16 10/31/16 05:43 07:15 07:15 WBC 12.1 H RBC 2.63 L Hgb 7.7 L Hct 23.3 L MCV MCH MCHC RDW 16.7 H Plt Count Lymph % (Auto) 11.7 L [place] % (Auto) 7.7 H Lymph # [place] # 0.9 H Baso # Seg Neutrophils % 78.0 H Seg Neuts % (Manual) Lymphocytes % (Manual) Monocytes % (Manual) Eosinophils % (Manual) Basophils % (Manual) Nucleated RBC % Seg Neutrophils # 9.4 H Seg Neutrophils # Man Lymphocytes # (Manual) Monocytes # (Manual) Eosinophils # (Manual) PT INR Fibrinogen dRVVT Confirm Interp Factor V Activity POC ABG pH POC ABG pCO2 POC ABG pO2 ABG pO2 ABG HCO3 ABG Hemoglobin Oxyhemoglobin Sodium Potassium Chloride 96.4 L Carbon Dioxide 21 L BUN 99 H Creatinine 2.6 H Glucose 144 H POC Glucose 125 H Lactic Acid Calcium Phosphorus 4.80 H Magnesium Direct Bilirubin AST ALT Alkaline Phosphatase Lactate Dehydrogenase Troponin T C-Reactive Protein Total Protein Albumin Prealbumin Triglycerides Cholesterol LDL Cholesterol Direct HDL Cholesterol Urine pH Urine WBC (Auto) Urine Creatinine Urine Total Protein Fluid Total Protein Vancomycin Trough Rheumatoid Factor Complement C4 Miscellaneous Test Crossmatch 10/31/16 10/31/16 11/01/16 11:46 18:34 00:20 WBC RBC Hgb Hct MCV MCH MCHC RDW Plt Count Lymph % (Auto) [place] % (Auto) Lymph # [place] # Baso # Seg Neutrophils % Seg Neuts % (Manual) Lymphocytes % (Manual) Monocytes % (Manual) Eosinophils % (Manual) Basophils % (Manual) Nucleated RBC % Seg Neutrophils # Seg Neutrophils # Man Lymphocytes # (Manual) Monocytes # (Manual) Eosinophils # (Manual) PT INR Fibrinogen dRVVT Confirm Interp Factor V Activity POC ABG pH POC ABG pCO2 POC ABG pO2 ABG pO2 ABG HCO3 ABG Hemoglobin Oxyhemoglobin Sodium Potassium Chloride Carbon Dioxide BUN Creatinine Glucose POC Glucose 159 H 140 H 132 H Lactic Acid Calcium Phosphorus Magnesium Direct Bilirubin AST ALT Alkaline Phosphatase Lactate Dehydrogenase Troponin T C-Reactive Protein Total Protein Albumin Prealbumin Triglycerides Cholesterol LDL Cholesterol Direct HDL Cholesterol Urine pH Urine WBC (Auto) Urine Creatinine Urine Total Protein Fluid Total Protein Vancomycin Trough Rheumatoid Factor Complement C4 Miscellaneous Test Crossmatch 11/01/16 11/01/16 11/01/16 04:55 04:55 06:11 WBC 11.2 H RBC 2.68 L Hgb 7.5 L Hct 23.7 L MCV MCH MCHC RDW 16.1 H Plt Count Lymph % (Auto) [place] % (Auto) 9.8 H Lymph # [place] # 1.1 H Baso # Seg Neutrophils % 70.8 H Seg Neuts % (Manual) Lymphocytes % (Manual) Monocytes % (Manual) Eosinophils % (Manual) Basophils % (Manual) Nucleated RBC % Seg Neutrophils # 7.9 H Seg Neutrophils # Man Lymphocytes # (Manual) Monocytes # (Manual) Eosinophils # (Manual) PT INR Fibrinogen dRVVT Confirm Interp Factor V Activity POC ABG pH POC ABG pCO2 POC ABG pO2 ABG pO2 ABG HCO3 ABG Hemoglobin Oxyhemoglobin Sodium Potassium 3.3 L D Chloride Carbon Dioxide BUN 61 H Creatinine 1.9 H Glucose 114 H POC Glucose 115 H Lactic Acid Calcium Phosphorus 1.80 L D Magnesium Direct Bilirubin AST ALT Alkaline Phosphatase Lactate Dehydrogenase Troponin T C-Reactive Protein Total Protein Albumin Prealbumin Triglycerides Cholesterol LDL Cholesterol Direct HDL Cholesterol Urine pH Urine WBC (Auto) Urine Creatinine Urine Total Protein Fluid Total Protein Vancomycin Trough Rheumatoid Factor Complement C4 Miscellaneous Test Crossmatch 11/01/16 11/01/16 11/01/16 12:29 18:23 23:58 WBC RBC Hgb Hct MCV MCH MCHC RDW Plt Count Lymph % (Auto) [place] % (Auto) Lymph # [place] # Baso # Seg Neutrophils % Seg Neuts % (Manual) Lymphocytes % (Manual) Monocytes % (Manual) Eosinophils % (Manual) Basophils % (Manual) Nucleated RBC % Seg Neutrophils # Seg Neutrophils # Man Lymphocytes # (Manual) Monocytes # (Manual) Eosinophils # (Manual) PT INR Fibrinogen dRVVT Confirm Interp Factor V Activity POC ABG pH POC ABG pCO2 POC ABG pO2 ABG pO2 ABG HCO3 ABG Hemoglobin Oxyhemoglobin Sodium Potassium Chloride Carbon Dioxide BUN Creatinine Glucose POC Glucose 142 H 143 H 128 H Lactic Acid Calcium Phosphorus Magnesium Direct Bilirubin AST ALT Alkaline Phosphatase Lactate Dehydrogenase Troponin T C-Reactive Protein Total Protein Albumin Prealbumin Triglycerides Cholesterol LDL Cholesterol Direct HDL Cholesterol Urine pH Urine WBC (Auto) Urine Creatinine Urine Total Protein Fluid Total Protein Vancomycin Trough Rheumatoid Factor Complement C4 Miscellaneous Test Crossmatch 11/02/16 11/02/16 11/02/16 04:16 05:29 11:58 WBC RBC Hgb Hct MCV MCH MCHC RDW Plt Count Lymph % (Auto) [place] % (Auto) Lymph # [place] # Baso # Seg Neutrophils % Seg Neuts % (Manual) Lymphocytes % (Manual) Monocytes % (Manual) Eosinophils % (Manual) Basophils % (Manual) Nucleated RBC % Seg Neutrophils # Seg Neutrophils # Man Lymphocytes # (Manual) Monocytes # (Manual) Eosinophils # (Manual) PT INR Fibrinogen dRVVT Confirm Interp Factor V Activity POC ABG pH POC ABG pCO2 POC ABG pO2 ABG pO2 ABG HCO3 ABG Hemoglobin Oxyhemoglobin Sodium Potassium 3.1 L Chloride Carbon Dioxide BUN 73 H Creatinine 2.3 H Glucose 112 H POC Glucose 135 H 149 H Lactic Acid Calcium Phosphorus Magnesium Direct Bilirubin AST ALT Alkaline Phosphatase Lactate Dehydrogenase Troponin T C-Reactive Protein Total Protein Albumin Prealbumin Triglycerides Cholesterol LDL Cholesterol Direct HDL Cholesterol Urine pH Urine WBC (Auto) Urine Creatinine Urine Total Protein Fluid Total Protein Vancomycin Trough Rheumatoid Factor Complement C4 Miscellaneous Test Crossmatch 11/02/16 11/02/16 11/03/16 17:42 22:54 06:00 WBC RBC Hgb Hct MCV MCH MCHC RDW Plt Count Lymph % (Auto) [place] % (Auto) Lymph # [place] # Baso # Seg Neutrophils % Seg Neuts % (Manual) Lymphocytes % (Manual) Monocytes % (Manual) Eosinophils % (Manual) Basophils % (Manual) Nucleated RBC % Seg Neutrophils # Seg Neutrophils # Man Lymphocytes # (Manual) Monocytes # (Manual) Eosinophils # (Manual) PT INR Fibrinogen dRVVT Confirm Interp Factor V Activity POC ABG pH POC ABG pCO2 POC ABG pO2 ABG pO2 ABG HCO3 ABG Hemoglobin Oxyhemoglobin Sodium Potassium Chloride 96.7 L Carbon Dioxide BUN 41 H Creatinine 1.5 H Glucose 145 H POC Glucose 182 H 115 H Lactic Acid Calcium Phosphorus 1.60 L D Magnesium 1.50 L Direct Bilirubin AST ALT Alkaline Phosphatase Lactate Dehydrogenase Troponin T C-Reactive Protein Total Protein Albumin Prealbumin Triglycerides Cholesterol LDL Cholesterol Direct HDL Cholesterol Urine pH Urine WBC (Auto) Urine Creatinine Urine Total Protein Fluid Total Protein Vancomycin Trough Rheumatoid Factor Complement C4 Miscellaneous Test Crossmatch 11/03/16 11/03/16 11/03/16 11:53 17:45 23:37 WBC RBC Hgb Hct MCV MCH MCHC RDW Plt Count Lymph % (Auto) [place] % (Auto) Lymph # [place] # Baso # Seg Neutrophils % Seg Neuts % (Manual) Lymphocytes % (Manual) Monocytes % (Manual) Eosinophils % (Manual) Basophils % (Manual) Nucleated RBC % Seg Neutrophils # Seg Neutrophils # Man Lymphocytes # (Manual) Monocytes # (Manual) Eosinophils # (Manual) PT INR Fibrinogen dRVVT Confirm Interp Factor V Activity POC ABG pH POC ABG pCO2 POC ABG pO2 ABG pO2 ABG HCO3 ABG Hemoglobin Oxyhemoglobin Sodium Potassium Chloride Carbon Dioxide BUN Creatinine Glucose POC Glucose 131 H 134 H 113 H Lactic Acid Calcium Phosphorus Magnesium Direct Bilirubin AST ALT Alkaline Phosphatase Lactate Dehydrogenase Troponin T C-Reactive Protein Total Protein Albumin Prealbumin Triglycerides Cholesterol LDL Cholesterol Direct HDL Cholesterol Urine pH Urine WBC (Auto) Urine Creatinine Urine Total Protein Fluid Total Protein Vancomycin Trough Rheumatoid Factor Complement C4 Miscellaneous Test Crossmatch 11/04/16 11/04/16 11/04/16 05:41 06:00 12:10 WBC RBC Hgb Hct MCV MCH MCHC RDW Plt Count Lymph % (Auto) [place] % (Auto) Lymph # [place] # Baso # Seg Neutrophils % Seg Neuts % (Manual) Lymphocytes % (Manual) Monocytes % (Manual) Eosinophils % (Manual) Basophils % (Manual) Nucleated RBC % Seg Neutrophils # Seg Neutrophils # Man Lymphocytes # (Manual) Monocytes # (Manual) Eosinophils # (Manual) PT INR Fibrinogen dRVVT Confirm Interp Factor V Activity POC ABG pH POC ABG pCO2 POC ABG pO2 ABG pO2 ABG HCO3 ABG Hemoglobin Oxyhemoglobin Sodium Potassium Chloride 96.7 L Carbon Dioxide BUN 52 H Creatinine 1.9 H Glucose 126 H POC Glucose 137 H 191 H Lactic Acid Calcium Phosphorus Magnesium Direct Bilirubin AST ALT Alkaline Phosphatase Lactate Dehydrogenase Troponin T C-Reactive Protein Total Protein Albumin Prealbumin Triglycerides Cholesterol LDL Cholesterol Direct HDL Cholesterol Urine pH Urine WBC (Auto) Urine Creatinine Urine Total Protein Fluid Total Protein Vancomycin Trough Rheumatoid Factor Complement C4 Miscellaneous Test Crossmatch 11/04/16 11/05/16 11/05/16 22:57 03:10 05:10 WBC RBC Hgb Hct MCV MCH MCHC RDW Plt Count Lymph % (Auto) [place] % (Auto) Lymph # [place] # Baso # Seg Neutrophils % Seg Neuts % (Manual) Lymphocytes % (Manual) Monocytes % (Manual) Eosinophils % (Manual) Basophils % (Manual) Nucleated RBC % Seg Neutrophils # Seg Neutrophils # Man Lymphocytes # (Manual) Monocytes # (Manual) Eosinophils # (Manual) PT INR Fibrinogen dRVVT Confirm Interp Factor V Activity POC ABG pH POC ABG pCO2 POC ABG pO2 ABG pO2 ABG HCO3 ABG Hemoglobin Oxyhemoglobin Sodium 136 L Potassium Chloride 97.2 L Carbon Dioxide BUN 32 H Creatinine 1.3 H Glucose 123 H POC Glucose 125 H 108 H Lactic Acid Calcium 7.8 L Phosphorus Magnesium Direct Bilirubin AST ALT Alkaline Phosphatase Lactate Dehydrogenase Troponin T C-Reactive Protein Total Protein Albumin Prealbumin Triglycerides Cholesterol LDL Cholesterol Direct HDL Cholesterol Urine pH Urine WBC (Auto) Urine Creatinine Urine Total Protein Fluid Total Protein Vancomycin Trough Rheumatoid Factor Complement C4 Miscellaneous Test Crossmatch 11/05/16 11/05/16 11/05/16 12:23 13:09 13:25 WBC RBC Hgb Hct MCV MCH MCHC RDW Plt Count Lymph % (Auto) [place] % (Auto) Lymph # [place] # Baso # Seg Neutrophils % Seg Neuts % (Manual) Lymphocytes % (Manual) Monocytes % (Manual) Eosinophils % (Manual) Basophils % (Manual) Nucleated RBC % Seg Neutrophils # Seg Neutrophils # Man Lymphocytes # (Manual) Monocytes # (Manual) Eosinophils # (Manual) PT INR Fibrinogen dRVVT Confirm Interp Factor V Activity POC ABG pH POC ABG pCO2 POC ABG pO2 ABG pO2 ABG HCO3 ABG Hemoglobin Oxyhemoglobin Sodium Potassium Chloride Carbon Dioxide BUN Creatinine Glucose POC Glucose 124 H Lactic Acid Calcium Phosphorus Magnesium Direct Bilirubin AST ALT Alkaline Phosphatase Lactate Dehydrogenase Troponin T C-Reactive Protein 11.40 H Total Protein Albumin Prealbumin Triglycerides Cholesterol LDL Cholesterol Direct HDL Cholesterol Urine pH 9.0 H Urine WBC (Auto) Urine Creatinine Urine Total Protein Fluid Total Protein Vancomycin Trough Rheumatoid Factor Complement C4 Miscellaneous Test Crossmatch 11/05/16 11/05/16 11/05/16 13:25 17:54 23:42 WBC RBC Hgb Hct MCV MCH MCHC RDW Plt Count Lymph % (Auto) [place] % (Auto) Lymph # [place] # Baso # Seg Neutrophils % Seg Neuts % (Manual) Lymphocytes % (Manual) Monocytes % (Manual) Eosinophils % (Manual) Basophils % (Manual) Nucleated RBC % Seg Neutrophils # Seg Neutrophils # Man Lymphocytes # (Manual) Monocytes # (Manual) Eosinophils # (Manual) PT INR Fibrinogen dRVVT Confirm Interp Factor V Activity POC ABG pH POC ABG pCO2 POC ABG pO2 ABG pO2 ABG HCO3 ABG Hemoglobin Oxyhemoglobin Sodium Potassium Chloride Carbon Dioxide BUN Creatinine Glucose POC Glucose 114 H 134 H Lactic Acid Calcium Phosphorus Magnesium Direct Bilirubin AST ALT Alkaline Phosphatase Lactate Dehydrogenase Troponin T C-Reactive Protein Total Protein Albumin Prealbumin Triglycerides Cholesterol LDL Cholesterol Direct HDL Cholesterol Urine pH Urine WBC (Auto) Urine Creatinine Urine Total Protein Fluid Total Protein Vancomycin Trough Rheumatoid Factor Complement C4 Miscellaneous Test Flexitest 1 H Crossmatch 11/06/16 11/06/16 11/06/16 04:56 06:25 06:25 WBC RBC 2.50 L Hgb 7.3 L Hct 22.5 L MCV MCH MCHC RDW 16.9 H Plt Count Lymph % (Auto) [place] % (Auto) 10.5 H Lymph # [place] # 1.1 H Baso # Seg Neutrophils % Seg Neuts % (Manual) Lymphocytes % (Manual) Monocytes % (Manual) Eosinophils % (Manual) Basophils % (Manual) Nucleated RBC % Seg Neutrophils # Seg Neutrophils # Man Lymphocytes # (Manual) Monocytes # (Manual) Eosinophils # (Manual) PT INR Fibrinogen dRVVT Confirm Interp Factor V Activity POC ABG pH POC ABG pCO2 POC ABG pO2 ABG pO2 ABG HCO3 ABG Hemoglobin Oxyhemoglobin Sodium Potassium 5.1 H Chloride 95.9 L Carbon Dioxide BUN 52 H Creatinine 1.8 H Glucose 117 H POC Glucose 120 H Lactic Acid Calcium Phosphorus Magnesium Direct Bilirubin AST 103 H ALT 77 H Alkaline Phosphatase 285 H Lactate Dehydrogenase Troponin T C-Reactive Protein Total Protein 6.2 L Albumin 1.8 L Prealbumin 0.180 L Triglycerides Cholesterol LDL Cholesterol Direct HDL Cholesterol Urine pH Urine WBC (Auto) Urine Creatinine Urine Total Protein Fluid Total Protein Vancomycin Trough Rheumatoid Factor Complement C4 Miscellaneous Test Crossmatch 11/06/16 11/06/16 11/06/16 11:56 17:14 23:52 WBC RBC Hgb Hct MCV MCH MCHC RDW Plt Count Lymph % (Auto) [place] % (Auto) Lymph # [place] # Baso # Seg Neutrophils % Seg Neuts % (Manual) Lymphocytes % (Manual) Monocytes % (Manual) Eosinophils % (Manual) Basophils % (Manual) Nucleated RBC % Seg Neutrophils # Seg Neutrophils # Man Lymphocytes # (Manual) Monocytes # (Manual) Eosinophils # (Manual) PT INR Fibrinogen dRVVT Confirm Interp Factor V Activity POC ABG pH POC ABG pCO2 POC ABG pO2 ABG pO2 ABG HCO3 ABG Hemoglobin Oxyhemoglobin Sodium Potassium Chloride Carbon Dioxide BUN Creatinine Glucose POC Glucose 141 H 125 H 130 H Lactic Acid Calcium Phosphorus Magnesium Direct Bilirubin AST ALT Alkaline Phosphatase Lactate Dehydrogenase Troponin T C-Reactive Protein Total Protein Albumin Prealbumin Triglycerides Cholesterol LDL Cholesterol Direct HDL Cholesterol Urine pH Urine WBC (Auto) Urine Creatinine Urine Total Protein Fluid Total Protein Vancomycin Trough Rheumatoid Factor Complement C4 Miscellaneous Test Crossmatch 11/07/16 11/07/16 11/07/16 06:30 06:30 09:37 WBC RBC 2.18 L Hgb 6.3 L Hct 19.7 L* MCV MCH MCHC RDW 16.8 H Plt Count Lymph % (Auto) [place] % (Auto) 10.0 H Lymph # [place] # 1.0 H Baso # Seg Neutrophils % Seg Neuts % (Manual) Lymphocytes % (Manual) Monocytes % (Manual) Eosinophils % (Manual) Basophils % (Manual) Nucleated RBC % Seg Neutrophils # Seg Neutrophils # Man Lymphocytes # (Manual) Monocytes # (Manual) Eosinophils # (Manual) PT INR Fibrinogen dRVVT Confirm Interp Factor V Activity POC ABG pH POC ABG pCO2 POC ABG pO2 ABG pO2 ABG HCO3 ABG Hemoglobin Oxyhemoglobin Sodium 135 L Potassium Chloride 95.6 L Carbon Dioxide BUN 70 H Creatinine 2.0 H Glucose 126 H POC Glucose Lactic Acid Calcium Phosphorus Magnesium Direct Bilirubin AST ALT Alkaline Phosphatase Lactate Dehydrogenase Troponin T C-Reactive Protein Total Protein Albumin Prealbumin Triglycerides Cholesterol LDL Cholesterol Direct HDL Cholesterol Urine pH Urine WBC (Auto) Urine Creatinine Urine Total Protein Fluid Total Protein Vancomycin Trough Rheumatoid Factor Complement C4 Miscellaneous Test Crossmatch See Detail 11/07/16 11/07/16 11/07/16 12:52 18:51 21:26 WBC RBC Hgb Hct MCV MCH MCHC RDW Plt Count Lymph % (Auto) [place] % (Auto) Lymph # [place] # Baso # Seg Neutrophils % Seg Neuts % (Manual) Lymphocytes % (Manual) Monocytes % (Manual) Eosinophils % (Manual) Basophils % (Manual) Nucleated RBC % Seg Neutrophils # Seg Neutrophils # Man Lymphocytes # (Manual) Monocytes # (Manual) Eosinophils # (Manual) PT INR Fibrinogen dRVVT Confirm Interp Factor V Activity POC ABG pH 7.523 H POC ABG pCO2 34.6 L POC ABG pO2 53 L ABG pO2 ABG HCO3 ABG Hemoglobin Oxyhemoglobin Sodium Potassium Chloride Carbon Dioxide BUN Creatinine Glucose POC Glucose 142 H 155 H Lactic Acid Calcium Phosphorus Magnesium Direct Bilirubin AST ALT Alkaline Phosphatase Lactate Dehydrogenase Troponin T C-Reactive Protein Total Protein Albumin Prealbumin Triglycerides Cholesterol LDL Cholesterol Direct HDL Cholesterol Urine pH Urine WBC (Auto) Urine Creatinine Urine Total Protein Fluid Total Protein Vancomycin Trough Rheumatoid Factor Complement C4 Miscellaneous Test Crossmatch 11/07/16 11/08/16 11/08/16 21:34 13:03 23:37 WBC RBC 2.63 L Hgb 7.7 L Hct 22.7 L MCV MCH MCHC RDW 17.0 H Plt Count Lymph % (Auto) [place] % (Auto) Lymph # [place] # Baso # Seg Neutrophils % Seg Neuts % (Manual) Lymphocytes % (Manual) Monocytes % (Manual) Eosinophils % (Manual) Basophils % (Manual) Nucleated RBC % Seg Neutrophils # Seg Neutrophils # Man Lymphocytes # (Manual) Monocytes # (Manual) Eosinophils # (Manual) PT INR Fibrinogen dRVVT Confirm Interp Factor V Activity POC ABG pH 7.478 H POC ABG pCO2 34.0 L POC ABG pO2 50 L ABG pO2 ABG HCO3 ABG Hemoglobin Oxyhemoglobin Sodium Potassium Chloride Carbon Dioxide BUN Creatinine Glucose POC Glucose 113 H Lactic Acid Calcium Phosphorus Magnesium Direct Bilirubin AST ALT Alkaline Phosphatase Lactate Dehydrogenase Troponin T C-Reactive Protein Total Protein Albumin Prealbumin Triglycerides Cholesterol LDL Cholesterol Direct HDL Cholesterol Urine pH Urine WBC (Auto) Urine Creatinine Urine Total Protein Fluid Total Protein Vancomycin Trough Rheumatoid Factor Complement C4 Miscellaneous Test Crossmatch 11/09/16 11/09/16 11/09/16 04:35 10:15 18:21 WBC RBC 2.68 L Hgb 7.8 L Hct 23.3 L MCV MCH MCHC RDW 17.0 H Plt Count Lymph % (Auto) [place] % (Auto) 12.1 H Lymph # [place] # 1.1 H Baso # Seg Neutrophils % Seg Neuts % (Manual) Lymphocytes % (Manual) Monocytes % (Manual) Eosinophils % (Manual) Basophils % (Manual) Nucleated RBC % Seg Neutrophils # Seg Neutrophils # Man Lymphocytes # (Manual) Monocytes # (Manual) Eosinophils # (Manual) PT INR Fibrinogen dRVVT Confirm Interp Factor V Activity POC ABG pH POC ABG pCO2 POC ABG pO2 ABG pO2 ABG HCO3 ABG Hemoglobin Oxyhemoglobin Sodium Potassium Chloride Carbon Dioxide BUN 51 H Creatinine 1.8 H Glucose POC Glucose 60 L Lactic Acid Calcium 8.3 L Phosphorus Magnesium Direct Bilirubin AST ALT Alkaline Phosphatase Lactate Dehydrogenase Troponin T C-Reactive Protein Total Protein Albumin Prealbumin Triglycerides Cholesterol LDL Cholesterol Direct HDL Cholesterol Urine pH Urine WBC (Auto) Urine Creatinine Urine Total Protein Fluid Total Protein Vancomycin Trough Rheumatoid Factor Complement C4 Miscellaneous Test Crossmatch 11/09/16 11/10/16 11/10/16 18:55 07:00 11:51 WBC RBC Hgb Hct MCV MCH MCHC RDW Plt Count Lymph % (Auto) [place] % (Auto) Lymph # [place] # Baso # Seg Neutrophils % Seg Neuts % (Manual) Lymphocytes % (Manual) Monocytes % (Manual) Eosinophils % (Manual) Basophils % (Manual) Nucleated RBC % Seg Neutrophils # Seg Neutrophils # Man Lymphocytes # (Manual) Monocytes # (Manual) Eosinophils # (Manual) PT INR Fibrinogen dRVVT Confirm Interp Factor V Activity POC ABG pH POC ABG pCO2 POC ABG pO2 ABG pO2 ABG HCO3 ABG Hemoglobin Oxyhemoglobin Sodium Potassium 3.0 L D Chloride 97.4 L Carbon Dioxide BUN 28 H Creatinine 1.3 H Glucose POC Glucose 68 L 120 H Lactic Acid Calcium 7.8 L Phosphorus Magnesium Direct Bilirubin AST ALT Alkaline Phosphatase Lactate Dehydrogenase Troponin T C-Reactive Protein Total Protein Albumin Prealbumin Triglycerides Cholesterol LDL Cholesterol Direct HDL Cholesterol Urine pH Urine WBC (Auto) Urine Creatinine Urine Total Protein Fluid Total Protein Vancomycin Trough Rheumatoid Factor Complement C4 Miscellaneous Test Crossmatch 11/10/16 11/11/16 11/11/16 14:20 06:59 06:59 WBC RBC 2.81 L Hgb 8.1 L Hct 24.4 L MCV MCH MCHC RDW 16.4 H Plt Count Lymph % (Auto) [place] % (Auto) 10.8 H Lymph # [place] # 1.0 H Baso # Seg Neutrophils % Seg Neuts % (Manual) Lymphocytes % (Manual) Monocytes % (Manual) Eosinophils % (Manual) Basophils % (Manual) Nucleated RBC % Seg Neutrophils # Seg Neutrophils # Man Lymphocytes # (Manual) Monocytes # (Manual) Eosinophils # (Manual) PT INR Fibrinogen dRVVT Confirm Interp Factor V Activity POC ABG pH POC ABG pCO2 POC ABG pO2 ABG pO2 ABG HCO3 ABG Hemoglobin Oxyhemoglobin Sodium Potassium Chloride Carbon Dioxide BUN Creatinine Glucose POC Glucose Lactic Acid Calcium Phosphorus Magnesium Direct Bilirubin AST ALT Alkaline Phosphatase Lactate Dehydrogenase 196 H Troponin T C-Reactive Protein Total Protein 6.1 L Albumin Prealbumin Triglycerides Cholesterol LDL Cholesterol Direct HDL Cholesterol Urine pH Urine WBC (Auto) Urine Creatinine Urine Total Protein Fluid Total Protein < 3.0 L Vancomycin Trough Rheumatoid Factor Complement C4 Miscellaneous Test Crossmatch 11/11/16 11/11/16 11/12/16 06:59 09:50 04:00 WBC RBC Hgb Hct MCV MCH MCHC RDW Plt Count Lymph % (Auto) [place] % (Auto) Lymph # [place] # Baso # Seg Neutrophils % Seg Neuts % (Manual) Lymphocytes % (Manual) Monocytes % (Manual) Eosinophils % (Manual) Basophils % (Manual) Nucleated RBC % Seg Neutrophils # Seg Neutrophils # Man Lymphocytes # (Manual) Monocytes # (Manual) Eosinophils # (Manual) PT INR 1.18 H Fibrinogen dRVVT Confirm Interp Factor V Activity POC ABG pH POC ABG pCO2 POC ABG pO2 ABG pO2 ABG HCO3 ABG Hemoglobin Oxyhemoglobin Sodium 136 L 133 L Potassium Chloride 96.1 L 94.8 L Carbon Dioxide 21 L BUN 37 H 42 H Creatinine 1.8 H 2.0 H Glucose POC Glucose Lactic Acid Calcium Phosphorus Magnesium Direct Bilirubin AST ALT Alkaline Phosphatase Lactate Dehydrogenase Troponin T C-Reactive Protein Total Protein Albumin Prealbumin Triglycerides Cholesterol LDL Cholesterol Direct HDL Cholesterol Urine pH Urine WBC (Auto) Urine Creatinine Urine Total Protein Fluid Total Protein Vancomycin Trough Rheumatoid Factor Complement C4 Miscellaneous Test Crossmatch 11/12/16 11/12/16 11/13/16 04:00 23:55 05:53 WBC RBC Hgb 8.9 L Hct 27.2 L MCV MCH MCHC RDW Plt Count Lymph % (Auto) [place] % (Auto) Lymph # [place] # Baso # Seg Neutrophils % Seg Neuts % (Manual) Lymphocytes % (Manual) Monocytes % (Manual) Eosinophils % (Manual) Basophils % (Manual) Nucleated RBC % Seg Neutrophils # Seg Neutrophils # Man Lymphocytes # (Manual) Monocytes # (Manual) Eosinophils # (Manual) PT INR Fibrinogen dRVVT Confirm Interp Factor V Activity POC ABG pH POC ABG pCO2 POC ABG pO2 ABG pO2 ABG HCO3 ABG Hemoglobin Oxyhemoglobin Sodium Potassium Chloride Carbon Dioxide BUN Creatinine Glucose POC Glucose 132 H 120 H Lactic Acid Calcium Phosphorus Magnesium Direct Bilirubin AST ALT Alkaline Phosphatase Lactate Dehydrogenase Troponin T C-Reactive Protein Total Protein Albumin Prealbumin Triglycerides Cholesterol LDL Cholesterol Direct HDL Cholesterol Urine pH Urine WBC (Auto) Urine Creatinine Urine Total Protein Fluid Total Protein Vancomycin Trough Rheumatoid Factor Complement C4 Miscellaneous Test Crossmatch 11/13/16 11/13/16 11/13/16 11:43 17:09 23:41 WBC RBC Hgb Hct MCV MCH MCHC RDW Plt Count Lymph % (Auto) [place] % (Auto) Lymph # [place] # Baso # Seg Neutrophils % Seg Neuts % (Manual) Lymphocytes % (Manual) Monocytes % (Manual) Eosinophils % (Manual) Basophils % (Manual) Nucleated RBC % Seg Neutrophils # Seg Neutrophils # Man Lymphocytes # (Manual) Monocytes # (Manual) Eosinophils # (Manual) PT INR Fibrinogen dRVVT Confirm Interp Factor V Activity POC ABG pH POC ABG pCO2 POC ABG pO2 ABG pO2 ABG HCO3 ABG Hemoglobin Oxyhemoglobin Sodium Potassium Chloride Carbon Dioxide BUN Creatinine Glucose POC Glucose 114 H 113 H 108 H Lactic Acid Calcium Phosphorus Magnesium Direct Bilirubin AST ALT Alkaline Phosphatase Lactate Dehydrogenase Troponin T C-Reactive Protein Total Protein Albumin Prealbumin Triglycerides Cholesterol LDL Cholesterol Direct HDL Cholesterol Urine pH Urine WBC (Auto) Urine Creatinine Urine Total Protein Fluid Total Protein Vancomycin Trough Rheumatoid Factor Complement C4 Miscellaneous Test Crossmatch 11/13/16 11/15/16 11/15/16 Unknown 00:37 03:30 WBC 11.2 H RBC 2.72 L Hgb 7.6 L Hct 23.4 L MCV MCH MCHC RDW 16.5 H Plt Count Lymph % (Auto) [place] % (Auto) Lymph # [place] # Baso # Seg Neutrophils % Seg Neuts % (Manual) Lymphocytes % (Manual) Monocytes % (Manual) Eosinophils % (Manual) Basophils % (Manual) Nucleated RBC % Seg Neutrophils # Seg Neutrophils # Man Lymphocytes # (Manual) Monocytes # (Manual) Eosinophils # (Manual) PT INR Fibrinogen dRVVT Confirm Interp Factor V Activity POC ABG pH POC ABG pCO2 POC ABG pO2 ABG pO2 ABG HCO3 ABG Hemoglobin Oxyhemoglobin Sodium 135 L Potassium Chloride 95.2 L Carbon Dioxide BUN 52 H Creatinine 2.2 H Glucose POC Glucose 108 H Lactic Acid Calcium Phosphorus Magnesium Direct Bilirubin AST ALT Alkaline Phosphatase Lactate Dehydrogenase Troponin T C-Reactive Protein Total Protein Albumin Prealbumin Triglycerides Cholesterol LDL Cholesterol Direct HDL Cholesterol Urine pH Urine WBC (Auto) Urine Creatinine Urine Total Protein Fluid Total Protein Vancomycin Trough Rheumatoid Factor Complement C4 Miscellaneous Test Crossmatch 11/15/16 11/15/16 11/15/16 03:30 05:04 11:50 WBC RBC Hgb Hct MCV MCH MCHC RDW Plt Count Lymph % (Auto) [place] % (Auto) Lymph # [place] # Baso # Seg Neutrophils % Seg Neuts % (Manual) Lymphocytes % (Manual) Monocytes % (Manual) Eosinophils % (Manual) Basophils % (Manual) Nucleated RBC % Seg Neutrophils # Seg Neutrophils # Man Lymphocytes # (Manual) Monocytes # (Manual) Eosinophils # (Manual) PT INR Fibrinogen dRVVT Confirm Interp Factor V Activity POC ABG pH POC ABG pCO2 POC ABG pO2 ABG pO2 ABG HCO3 ABG Hemoglobin Oxyhemoglobin Sodium Potassium 3.4 L Chloride Carbon Dioxide BUN 25 H Creatinine 1.5 H Glucose 103 H POC Glucose 121 H 144 H Lactic Acid Calcium Phosphorus Magnesium Direct Bilirubin AST ALT Alkaline Phosphatase Lactate Dehydrogenase Troponin T C-Reactive Protein Total Protein Albumin Prealbumin Triglycerides Cholesterol LDL Cholesterol Direct HDL Cholesterol Urine pH Urine WBC (Auto) Urine Creatinine Urine Total Protein Fluid Total Protein Vancomycin Trough Rheumatoid Factor Complement C4 Miscellaneous Test Crossmatch 11/15/16 11/15/16 11/16/16 21:28 23:20 11:44 WBC RBC Hgb Hct MCV MCH MCHC RDW Plt Count Lymph % (Auto) [place] % (Auto) Lymph # [place] # Baso # Seg Neutrophils % Seg Neuts % (Manual) Lymphocytes % (Manual) Monocytes % (Manual) Eosinophils % (Manual) Basophils % (Manual) Nucleated RBC % Seg Neutrophils # Seg Neutrophils # Man Lymphocytes # (Manual) Monocytes # (Manual) Eosinophils # (Manual) PT INR Fibrinogen dRVVT Confirm Interp Factor V Activity POC ABG pH 7.462 H POC ABG pCO2 POC ABG pO2 71 L ABG pO2 ABG HCO3 ABG Hemoglobin Oxyhemoglobin Sodium Potassium Chloride Carbon Dioxide BUN Creatinine Glucose POC Glucose 116 H 133 H Lactic Acid Calcium Phosphorus Magnesium Direct Bilirubin AST ALT Alkaline Phosphatase Lactate Dehydrogenase Troponin T C-Reactive Protein Total Protein Albumin Prealbumin Triglycerides Cholesterol LDL Cholesterol Direct HDL Cholesterol Urine pH Urine WBC (Auto) Urine Creatinine Urine Total Protein Fluid Total Protein Vancomycin Trough Rheumatoid Factor Complement C4 Miscellaneous Test Crossmatch 11/16/16 11/16/16 11/16/16 12:20 17:05 23:35 WBC 11.7 H RBC 2.73 L Hgb 7.6 L Hct 23.7 L MCV MCH MCHC RDW 16.6 H Plt Count Lymph % (Auto) [place] % (Auto) Lymph # [place] # Baso # Seg Neutrophils % Seg Neuts % (Manual) Lymphocytes % (Manual) Monocytes % (Manual) Eosinophils % (Manual) Basophils % (Manual) Nucleated RBC % Seg Neutrophils # Seg Neutrophils # Man Lymphocytes # (Manual) Monocytes # (Manual) Eosinophils # (Manual) PT INR Fibrinogen dRVVT Confirm Interp Factor V Activity POC ABG pH POC ABG pCO2 POC ABG pO2 ABG pO2 ABG HCO3 ABG Hemoglobin Oxyhemoglobin Sodium Potassium Chloride Carbon Dioxide BUN Creatinine Glucose POC Glucose 154 H 125 H Lactic Acid Calcium Phosphorus Magnesium Direct Bilirubin AST ALT Alkaline Phosphatase Lactate Dehydrogenase Troponin T C-Reactive Protein Total Protein Albumin Prealbumin Triglycerides Cholesterol LDL Cholesterol Direct HDL Cholesterol Urine pH Urine WBC (Auto) Urine Creatinine Urine Total Protein Fluid Total Protein Vancomycin Trough Rheumatoid Factor Complement C4 Miscellaneous Test Crossmatch 11/17/16 11/17/16 11/17/16 03:20 03:20 03:20 WBC RBC 2.55 L Hgb 7.3 L Hct 21.9 L MCV MCH MCHC RDW 16.6 H Plt Count Lymph % (Auto) [place] % (Auto) 11.5 H Lymph # [place] # 1.1 H Baso # Seg Neutrophils % Seg Neuts % (Manual) Lymphocytes % (Manual) Monocytes % (Manual) Eosinophils % (Manual) Basophils % (Manual) Nucleated RBC % Seg Neutrophils # Seg Neutrophils # Man Lymphocytes # (Manual) Monocytes # (Manual) Eosinophils # (Manual) PT 16.8 H INR 1.37 H Fibrinogen dRVVT Confirm Interp Factor V Activity POC ABG pH POC ABG pCO2 POC ABG pO2 ABG pO2 ABG HCO3 ABG Hemoglobin Oxyhemoglobin Sodium Potassium 3.5 L Chloride Carbon Dioxide BUN 21 H Creatinine Glucose POC Glucose Lactic Acid Calcium 7.9 L Phosphorus Magnesium Direct Bilirubin AST ALT Alkaline Phosphatase Lactate Dehydrogenase Troponin T C-Reactive Protein Total Protein Albumin Prealbumin Triglycerides Cholesterol LDL Cholesterol Direct HDL Cholesterol Urine pH Urine WBC (Auto) Urine Creatinine Urine Total Protein Fluid Total Protein Vancomycin Trough Rheumatoid Factor Complement C4 Miscellaneous Test Crossmatch 11/17/16 11/17/16 11/17/16 06:34 11:21 21:22 WBC RBC Hgb Hct MCV MCH MCHC RDW Plt Count Lymph % (Auto) [place] % (Auto) Lymph # [place] # Baso # Seg Neutrophils % Seg Neuts % (Manual) Lymphocytes % (Manual) Monocytes % (Manual) Eosinophils % (Manual) Basophils % (Manual) Nucleated RBC % Seg Neutrophils # Seg Neutrophils # Man Lymphocytes # (Manual) Monocytes # (Manual) Eosinophils # (Manual) PT INR Fibrinogen dRVVT Confirm Interp Factor V Activity POC ABG pH 7.467 H POC ABG pCO2 POC ABG pO2 73 L ABG pO2 ABG HCO3 ABG Hemoglobin Oxyhemoglobin Sodium Potassium Chloride Carbon Dioxide BUN Creatinine Glucose POC Glucose 121 H 119 H Lactic Acid Calcium Phosphorus Magnesium Direct Bilirubin AST ALT Alkaline Phosphatase Lactate Dehydrogenase Troponin T C-Reactive Protein Total Protein Albumin Prealbumin Triglycerides Cholesterol LDL Cholesterol Direct HDL Cholesterol Urine pH Urine WBC (Auto) Urine Creatinine Urine Total Protein Fluid Total Protein Vancomycin Trough Rheumatoid Factor Complement C4 Miscellaneous Test Crossmatch 11/18/16 11/18/16 11/19/16 12:16 17:19 00:00 WBC RBC Hgb Hct MCV MCH MCHC RDW Plt Count Lymph % (Auto) [place] % (Auto) Lymph # [place] # Baso # Seg Neutrophils % Seg Neuts % (Manual) Lymphocytes % (Manual) Monocytes % (Manual) Eosinophils % (Manual) Basophils % (Manual) Nucleated RBC % Seg Neutrophils # Seg Neutrophils # Man Lymphocytes # (Manual) Monocytes # (Manual) Eosinophils # (Manual) PT INR Fibrinogen dRVVT Confirm Interp Factor V Activity POC ABG pH POC ABG pCO2 POC ABG pO2 ABG pO2 ABG HCO3 ABG Hemoglobin Oxyhemoglobin Sodium Potassium Chloride Carbon Dioxide BUN Creatinine Glucose POC Glucose 124 H 162 H 139 H Lactic Acid Calcium Phosphorus Magnesium Direct Bilirubin AST ALT Alkaline Phosphatase Lactate Dehydrogenase Troponin T C-Reactive Protein Total Protein Albumin Prealbumin Triglycerides Cholesterol LDL Cholesterol Direct HDL Cholesterol Urine pH Urine WBC (Auto) Urine Creatinine Urine Total Protein Fluid Total Protein Vancomycin Trough Rheumatoid Factor Complement C4 Miscellaneous Test Crossmatch 11/19/16 11/19/16 11/20/16 05:00 12:43 00:40 WBC RBC Hgb Hct MCV MCH MCHC RDW Plt Count Lymph % (Auto) [place] % (Auto) Lymph # [place] # Baso # Seg Neutrophils % Seg Neuts % (Manual) Lymphocytes % (Manual) Monocytes % (Manual) Eosinophils % (Manual) Basophils % (Manual) Nucleated RBC % Seg Neutrophils # Seg Neutrophils # Man Lymphocytes # (Manual) Monocytes # (Manual) Eosinophils # (Manual) PT INR Fibrinogen dRVVT Confirm Interp Factor V Activity POC ABG pH POC ABG pCO2 POC ABG pO2 ABG pO2 ABG HCO3 ABG Hemoglobin Oxyhemoglobin Sodium Potassium Chloride Carbon Dioxide BUN Creatinine Glucose POC Glucose 110 H 125 H 136 H Lactic Acid Calcium Phosphorus Magnesium Direct Bilirubin AST ALT Alkaline Phosphatase Lactate Dehydrogenase Troponin T C-Reactive Protein Total Protein Albumin Prealbumin Triglycerides Cholesterol LDL Cholesterol Direct HDL Cholesterol Urine pH Urine WBC (Auto) Urine Creatinine Urine Total Protein Fluid Total Protein Vancomycin Trough Rheumatoid Factor Complement C4 Miscellaneous Test Crossmatch 11/20/16 11/20/16 11/20/16 05:00 05:00 05:51 WBC 13.1 H RBC 2.74 L Hgb 7.7 L Hct 23.6 L MCV MCH MCHC RDW 16.9 H Plt Count Lymph % (Auto) [place] % (Auto) 10.8 H Lymph # [place] # 1.4 H Baso # Seg Neutrophils % Seg Neuts % (Manual) Lymphocytes % (Manual) Monocytes % (Manual) Eosinophils % (Manual) Basophils % (Manual) Nucleated RBC % Seg Neutrophils # 7.9 H Seg Neutrophils # Man Lymphocytes # (Manual) Monocytes # (Manual) Eosinophils # (Manual) PT INR Fibrinogen dRVVT Confirm Interp Factor V Activity POC ABG pH POC ABG pCO2 POC ABG pO2 ABG pO2 ABG HCO3 ABG Hemoglobin Oxyhemoglobin Sodium Potassium Chloride Carbon Dioxide BUN 31 H Creatinine 1.8 H Glucose 129 H POC Glucose 133 H Lactic Acid Calcium Phosphorus Magnesium Direct Bilirubin AST ALT Alkaline Phosphatase Lactate Dehydrogenase Troponin T C-Reactive Protein Total Protein Albumin Prealbumin Triglycerides Cholesterol LDL Cholesterol Direct HDL Cholesterol Urine pH Urine WBC (Auto) Urine Creatinine Urine Total Protein Fluid Total Protein Vancomycin Trough Rheumatoid Factor Complement C4 Miscellaneous Test Crossmatch 11/20/16 11/20/16 11/21/16 12:40 18:10 01:20 WBC RBC Hgb Hct MCV MCH MCHC RDW Plt Count Lymph % (Auto) [place] % (Auto) Lymph # [place] # Baso # Seg Neutrophils % Seg Neuts % (Manual) Lymphocytes % (Manual) Monocytes % (Manual) Eosinophils % (Manual) Basophils % (Manual) Nucleated RBC % Seg Neutrophils # Seg Neutrophils # Man Lymphocytes # (Manual) Monocytes # (Manual) Eosinophils # (Manual) PT INR Fibrinogen dRVVT Confirm Interp Factor V Activity POC ABG pH POC ABG pCO2 POC ABG pO2 ABG pO2 ABG HCO3 ABG Hemoglobin Oxyhemoglobin Sodium Potassium Chloride Carbon Dioxide BUN Creatinine Glucose POC Glucose 134 H 138 H 136 H Lactic Acid Calcium Phosphorus Magnesium Direct Bilirubin AST ALT Alkaline Phosphatase Lactate Dehydrogenase Troponin T C-Reactive Protein Total Protein Albumin Prealbumin Triglycerides Cholesterol LDL Cholesterol Direct HDL Cholesterol Urine pH Urine WBC (Auto) Urine Creatinine Urine Total Protein Fluid Total Protein Vancomycin Trough Rheumatoid Factor Complement C4 Miscellaneous Test Crossmatch 11/21/16 11/21/16 11/21/16 07:04 07:45 07:45 WBC 22.0 H RBC 2.91 L Hgb 8.2 L Hct 25.4 L MCV MCH MCHC RDW 17.1 H Plt Count Lymph % (Auto) [place] % (Auto) Lymph # [place] # Baso # Seg Neutrophils % Seg Neuts % (Manual) Lymphocytes % (Manual) 8.0 L Monocytes % (Manual) Eosinophils % (Manual) Basophils % (Manual) Nucleated RBC % Seg Neutrophils # Seg Neutrophils # Man 14.7 H Lymphocytes # (Manual) Monocytes # (Manual) 1.1 H Eosinophils # (Manual) PT INR Fibrinogen dRVVT Confirm Interp Factor V Activity POC ABG pH POC ABG pCO2 POC ABG pO2 ABG pO2 ABG HCO3 ABG Hemoglobin Oxyhemoglobin Sodium Potassium Chloride Carbon Dioxide BUN 42 H Creatinine 2.0 H Glucose POC Glucose 108 H Lactic Acid Calcium Phosphorus Magnesium Direct Bilirubin AST ALT Alkaline Phosphatase Lactate Dehydrogenase Troponin T C-Reactive Protein Total Protein Albumin Prealbumin Triglycerides Cholesterol LDL Cholesterol Direct HDL Cholesterol Urine pH Urine WBC (Auto) Urine Creatinine Urine Total Protein Fluid Total Protein Vancomycin Trough Rheumatoid Factor Complement C4 Miscellaneous Test Crossmatch 11/21/16 11/21/16 11/21/16 08:38 10:09 11:20 WBC RBC Hgb Hct MCV MCH MCHC RDW Plt Count Lymph % (Auto) [place] % (Auto) Lymph # [place] # Baso # Seg Neutrophils % Seg Neuts % (Manual) Lymphocytes % (Manual) Monocytes % (Manual) Eosinophils % (Manual) Basophils % (Manual) Nucleated RBC % Seg Neutrophils # Seg Neutrophils # Man Lymphocytes # (Manual) Monocytes # (Manual) Eosinophils # (Manual) PT INR Fibrinogen dRVVT Confirm Interp Factor V Activity POC ABG pH 7.346 L POC ABG pCO2 34.4 L POC ABG pO2 314 H ABG pO2 ABG HCO3 ABG Hemoglobin Oxyhemoglobin Sodium Potassium Chloride Carbon Dioxide BUN Creatinine Glucose POC Glucose 195 H 153 H Lactic Acid Calcium Phosphorus Magnesium Direct Bilirubin AST ALT Alkaline Phosphatase Lactate Dehydrogenase Troponin T C-Reactive Protein Total Protein Albumin Prealbumin Triglycerides Cholesterol LDL Cholesterol Direct HDL Cholesterol Urine pH Urine WBC (Auto) Urine Creatinine Urine Total Protein Fluid Total Protein Vancomycin Trough Rheumatoid Factor Complement C4 Miscellaneous Test Crossmatch 11/21/16 11/22/16 11/22/16 23:37 04:48 05:00 WBC 29.7 H RBC 2.73 L Hgb 7.5 L Hct 24.2 L MCV MCH 27 L MCHC RDW 17.4 H Plt Count Lymph % (Auto) [place] % (Auto) Lymph # [place] # Baso # Seg Neutrophils % Seg Neuts % (Manual) Lymphocytes % (Manual) 7.0 L Monocytes % (Manual) Eosinophils % (Manual) Basophils % (Manual) Nucleated RBC % Seg Neutrophils # Seg Neutrophils # Man 15.4 H Lymphocytes # (Manual) Monocytes # (Manual) Eosinophils # (Manual) PT INR Fibrinogen dRVVT Confirm Interp Factor V Activity POC ABG pH POC ABG pCO2 24.6 L POC ABG pO2 189 H ABG pO2 ABG HCO3 ABG Hemoglobin Oxyhemoglobin Sodium Potassium Chloride Carbon Dioxide BUN Creatinine Glucose POC Glucose 65 L Lactic Acid Calcium Phosphorus Magnesium Direct Bilirubin AST ALT Alkaline Phosphatase Lactate Dehydrogenase Troponin T C-Reactive Protein Total Protein Albumin Prealbumin Triglycerides Cholesterol LDL Cholesterol Direct HDL Cholesterol Urine pH Urine WBC (Auto) Urine Creatinine Urine Total Protein Fluid Total Protein Vancomycin Trough Rheumatoid Factor Complement C4 Miscellaneous Test Crossmatch 11/22/16 11/23/16 11/23/16 05:00 03:44 04:06 WBC RBC 2.52 L Hgb 7.2 L Hct 21.5 L MCV MCH MCHC RDW 17.1 H Plt Count Lymph % (Auto) [place] % (Auto) 12.4 H Lymph # [place] # 1.4 H Baso # Seg Neutrophils % Seg Neuts % (Manual) Lymphocytes % (Manual) Monocytes % (Manual) Eosinophils % (Manual) Basophils % (Manual) Nucleated RBC % Seg Neutrophils # Seg Neutrophils # Man Lymphocytes # (Manual) Monocytes # (Manual) Eosinophils # (Manual) PT INR Fibrinogen dRVVT Confirm Interp Factor V Activity POC ABG pH 7.493 H POC ABG pCO2 29.5 L POC ABG pO2 49 L ABG pO2 ABG HCO3 ABG Hemoglobin Oxyhemoglobin Sodium 134 L Potassium Chloride 95.9 L Carbon Dioxide 14 L D BUN 51 H Creatinine 2.6 H Glucose POC Glucose Lactic Acid Calcium Phosphorus Magnesium Direct Bilirubin AST ALT Alkaline Phosphatase Lactate Dehydrogenase Troponin T C-Reactive Protein Total Protein Albumin Prealbumin Triglycerides Cholesterol LDL Cholesterol Direct HDL Cholesterol Urine pH Urine WBC (Auto) Urine Creatinine Urine Total Protein Fluid Total Protein Vancomycin Trough Rheumatoid Factor Complement C4 Miscellaneous Test Crossmatch 11/23/16 11/23/16 11/24/16 04:06 11:29 06:39 WBC RBC Hgb Hct MCV MCH MCHC RDW Plt Count Lymph % (Auto) [place] % (Auto) Lymph # [place] # Baso # Seg Neutrophils % Seg Neuts % (Manual) Lymphocytes % (Manual) Monocytes % (Manual) Eosinophils % (Manual) Basophils % (Manual) Nucleated RBC % Seg Neutrophils # Seg Neutrophils # Man Lymphocytes # (Manual) Monocytes # (Manual) Eosinophils # (Manual) PT INR Fibrinogen dRVVT Confirm Interp Factor V Activity POC ABG pH POC ABG pCO2 POC ABG pO2 ABG pO2 ABG HCO3 ABG Hemoglobin Oxyhemoglobin Sodium 136 L Potassium Chloride 95.2 L Carbon Dioxide BUN 60 H Creatinine 2.9 H Glucose POC Glucose 69 L 305 H Lactic Acid Calcium Phosphorus Magnesium 1.60 L Direct Bilirubin AST ALT Alkaline Phosphatase Lactate Dehydrogenase Troponin T C-Reactive Protein Total Protein Albumin Prealbumin Triglycerides Cholesterol LDL Cholesterol Direct HDL Cholesterol Urine pH Urine WBC (Auto) Urine Creatinine Urine Total Protein Fluid Total Protein Vancomycin Trough Rheumatoid Factor Complement C4 Miscellaneous Test Crossmatch 11/24/16 11/24/16 11/24/16 06:43 08:08 08:08 WBC 11.2 H RBC 2.47 L Hgb 6.8 L Hct 20.6 L MCV MCH MCHC RDW 17.0 H Plt Count Lymph % (Auto) [place] % (Auto) 10.3 H Lymph # [place] # 1.2 H Baso # Seg Neutrophils % Seg Neuts % (Manual) Lymphocytes % (Manual) Monocytes % (Manual) Eosinophils % (Manual) Basophils % (Manual) Nucleated RBC % Seg Neutrophils # Seg Neutrophils # Man Lymphocytes # (Manual) Monocytes # (Manual) Eosinophils # (Manual) PT INR Fibrinogen dRVVT Confirm Interp Factor V Activity POC ABG pH POC ABG pCO2 POC ABG pO2 ABG pO2 ABG HCO3 ABG Hemoglobin Oxyhemoglobin Sodium 135 L Potassium Chloride 96.3 L Carbon Dioxide BUN 61 H Creatinine 3.1 H Glucose POC Glucose 62 L Lactic Acid Calcium 8.2 L Phosphorus Magnesium Direct Bilirubin AST ALT Alkaline Phosphatase Lactate Dehydrogenase Troponin T C-Reactive Protein Total Protein Albumin Prealbumin Triglycerides Cholesterol LDL Cholesterol Direct HDL Cholesterol Urine pH Urine WBC (Auto) Urine Creatinine Urine Total Protein Fluid Total Protein Vancomycin Trough Rheumatoid Factor Complement C4 Miscellaneous Test Crossmatch 11/24/16 11/24/16 11/24/16 08:34 11:20 12:41 WBC RBC Hgb Hct MCV MCH MCHC RDW Plt Count Lymph % (Auto) [place] % (Auto) Lymph # [place] # Baso # Seg Neutrophils % Seg Neuts % (Manual) Lymphocytes % (Manual) Monocytes % (Manual) Eosinophils % (Manual) Basophils % (Manual) Nucleated RBC % Seg Neutrophils # Seg Neutrophils # Man Lymphocytes # (Manual) Monocytes # (Manual) Eosinophils # (Manual) PT INR Fibrinogen dRVVT Confirm Interp Factor V Activity POC ABG pH POC ABG pCO2 POC ABG pO2 ABG pO2 ABG HCO3 ABG Hemoglobin Oxyhemoglobin Sodium Potassium Chloride Carbon Dioxide BUN Creatinine Glucose POC Glucose 108 H Lactic Acid Calcium Phosphorus Magnesium 1.60 L Direct Bilirubin AST ALT Alkaline Phosphatase Lactate Dehydrogenase Troponin T C-Reactive Protein Total Protein Albumin Prealbumin Triglycerides Cholesterol LDL Cholesterol Direct HDL Cholesterol Urine pH Urine WBC (Auto) Urine Creatinine Urine Total Protein Fluid Total Protein Vancomycin Trough Rheumatoid Factor Complement C4 Miscellaneous Test Crossmatch See Detail 11/25/16 11/25/16 11/25/16 00:03 04:42 04:42 WBC RBC 3.03 L Hgb 8.6 L Hct 25.3 L MCV MCH MCHC RDW 16.2 H Plt Count Lymph % (Auto) [place] % (Auto) 8.1 H Lymph # [place] # Baso # Seg Neutrophils % 71.3 H Seg Neuts % (Manual) Lymphocytes % (Manual) Monocytes % (Manual) Eosinophils % (Manual) Basophils % (Manual) Nucleated RBC % Seg Neutrophils # Seg Neutrophils # Man Lymphocytes # (Manual) Monocytes # (Manual) Eosinophils # (Manual) PT INR Fibrinogen dRVVT Confirm Interp Factor V Activity POC ABG pH POC ABG pCO2 POC ABG pO2 ABG pO2 ABG HCO3 ABG Hemoglobin Oxyhemoglobin Sodium Potassium Chloride Carbon Dioxide BUN 61 H Creatinine 3.0 H Glucose 102 H POC Glucose 113 H Lactic Acid Calcium 8.2 L Phosphorus Magnesium Direct Bilirubin AST ALT Alkaline Phosphatase 142 H Lactate Dehydrogenase Troponin T C-Reactive Protein Total Protein 5.7 L Albumin 1.5 L Prealbumin Triglycerides Cholesterol LDL Cholesterol Direct HDL Cholesterol Urine pH Urine WBC (Auto) Urine Creatinine Urine Total Protein Fluid Total Protein Vancomycin Trough Rheumatoid Factor Complement C4 Miscellaneous Test Crossmatch 11/25/16 11/25/16 11/25/16 05:12 11:31 14:12 WBC RBC Hgb Hct MCV MCH MCHC RDW Plt Count Lymph % (Auto) [place] % (Auto) Lymph # [place] # Baso # Seg Neutrophils % Seg Neuts % (Manual) Lymphocytes % (Manual) Monocytes % (Manual) Eosinophils % (Manual) Basophils % (Manual) Nucleated RBC % Seg Neutrophils # Seg Neutrophils # Man Lymphocytes # (Manual) Monocytes # (Manual) Eosinophils # (Manual) PT INR Fibrinogen dRVVT Confirm Interp Factor V Activity POC ABG pH 7.487 H POC ABG pCO2 POC ABG pO2 153 H ABG pO2 ABG HCO3 ABG Hemoglobin Oxyhemoglobin Sodium Potassium Chloride Carbon Dioxide BUN Creatinine Glucose POC Glucose 131 H 140 H Lactic Acid Calcium Phosphorus Magnesium Direct Bilirubin AST ALT Alkaline Phosphatase Lactate Dehydrogenase Troponin T C-Reactive Protein Total Protein Albumin Prealbumin Triglycerides Cholesterol LDL Cholesterol Direct HDL Cholesterol Urine pH Urine WBC (Auto) Urine Creatinine Urine Total Protein Fluid Total Protein Vancomycin Trough Rheumatoid Factor Complement C4 Miscellaneous Test Crossmatch 11/25/16 11/26/16 11/26/16 17:23 00:09 05:13 WBC RBC 2.94 L Hgb 8.4 L Hct 24.6 L MCV MCH MCHC RDW 16.4 H Plt Count Lymph % (Auto) [place] % (Auto) 12.3 H Lymph # [place] # 1.1 H Baso # Seg Neutrophils % Seg Neuts % (Manual) Lymphocytes % (Manual) Monocytes % (Manual) Eosinophils % (Manual) Basophils % (Manual) Nucleated RBC % Seg Neutrophils # Seg Neutrophils # Man Lymphocytes # (Manual) Monocytes # (Manual) Eosinophils # (Manual) PT INR Fibrinogen dRVVT Confirm Interp Factor V Activity POC ABG pH POC ABG pCO2 POC ABG pO2 ABG pO2 ABG HCO3 ABG Hemoglobin Oxyhemoglobin Sodium Potassium Chloride Carbon Dioxide BUN Creatinine Glucose POC Glucose 146 H 112 H Lactic Acid Calcium Phosphorus Magnesium Direct Bilirubin AST ALT Alkaline Phosphatase Lactate Dehydrogenase Troponin T C-Reactive Protein Total Protein Albumin Prealbumin Triglycerides Cholesterol LDL Cholesterol Direct HDL Cholesterol Urine pH Urine WBC (Auto) Urine Creatinine Urine Total Protein Fluid Total Protein Vancomycin Trough Rheumatoid Factor Complement C4 Miscellaneous Test Crossmatch 11/26/16 11/26/16 11/26/16 05:13 05:28 11:53 WBC RBC Hgb Hct MCV MCH MCHC RDW Plt Count Lymph % (Auto) [place] % (Auto) Lymph # [place] # Baso # Seg Neutrophils % Seg Neuts % (Manual) Lymphocytes % (Manual) Monocytes % (Manual) Eosinophils % (Manual) Basophils % (Manual) Nucleated RBC % Seg Neutrophils # Seg Neutrophils # Man Lymphocytes # (Manual) Monocytes # (Manual) Eosinophils # (Manual) PT INR Fibrinogen dRVVT Confirm Interp Factor V Activity POC ABG pH POC ABG pCO2 POC ABG pO2 ABG pO2 ABG HCO3 ABG Hemoglobin Oxyhemoglobin Sodium Potassium Chloride 97.8 L Carbon Dioxide BUN 37 H Creatinine 2.0 H Glucose 109 H POC Glucose 117 H 111 H Lactic Acid Calcium 7.9 L Phosphorus 1.80 L D Magnesium Direct Bilirubin AST ALT Alkaline Phosphatase Lactate Dehydrogenase Troponin T C-Reactive Protein Total Protein Albumin Prealbumin Triglycerides Cholesterol LDL Cholesterol Direct HDL Cholesterol Urine pH Urine WBC (Auto) Urine Creatinine Urine Total Protein Fluid Total Protein Vancomycin Trough Rheumatoid Factor Complement C4 Miscellaneous Test Crossmatch 11/26/16 11/27/16 11/27/16 17:14 04:50 06:02 WBC RBC Hgb Hct MCV MCH MCHC RDW Plt Count Lymph % (Auto) [place] % (Auto) Lymph # [place] # Baso # Seg Neutrophils % Seg Neuts % (Manual) Lymphocytes % (Manual) Monocytes % (Manual) Eosinophils % (Manual) Basophils % (Manual) Nucleated RBC % Seg Neutrophils # Seg Neutrophils # Man Lymphocytes # (Manual) Monocytes # (Manual) Eosinophils # (Manual) PT INR Fibrinogen dRVVT Confirm Interp Factor V Activity POC ABG pH POC ABG pCO2 POC ABG pO2 ABG pO2 75.2 L ABG HCO3 26.4 H ABG Hemoglobin 7.6 L Oxyhemoglobin 94.8 L Sodium Potassium Chloride Carbon Dioxide BUN 49 H Creatinine 2.3 H Glucose POC Glucose 115 H Lactic Acid Calcium Phosphorus 1.50 L Magnesium Direct Bilirubin AST ALT Alkaline Phosphatase Lactate Dehydrogenase Troponin T C-Reactive Protein Total Protein Albumin Prealbumin Triglycerides Cholesterol LDL Cholesterol Direct HDL Cholesterol Urine pH Urine WBC (Auto) Urine Creatinine Urine Total Protein Fluid Total Protein Vancomycin Trough Rheumatoid Factor Complement C4 Miscellaneous Test Crossmatch 11/27/16 06:02 WBC 11.6 H RBC 2.75 L Hgb 7.6 L Hct 23.4 L MCV MCH MCHC RDW 16.5 H Plt Count Lymph % (Auto) [place] % (Auto) Lymph # [place] # Baso # Seg Neutrophils % Seg Neuts % (Manual) Lymphocytes % (Manual) Monocytes % (Manual) Eosinophils % (Manual) Basophils % (Manual) Nucleated RBC % Seg Neutrophils # Seg Neutrophils # Man Lymphocytes # (Manual) Monocytes # (Manual) Eosinophils # (Manual) PT INR Fibrinogen dRVVT Confirm Interp Factor V Activity POC ABG pH POC ABG pCO2 POC ABG pO2 ABG pO2 ABG HCO3 ABG Hemoglobin Oxyhemoglobin Sodium Potassium Chloride Carbon Dioxide BUN Creatinine Glucose POC Glucose Lactic Acid Calcium Phosphorus Magnesium Direct Bilirubin AST ALT Alkaline Phosphatase Lactate Dehydrogenase Troponin T C-Reactive Protein Total Protein Albumin Prealbumin Triglycerides Cholesterol LDL Cholesterol Direct HDL Cholesterol Urine pH Urine WBC (Auto) Urine Creatinine Urine Total Protein Fluid Total Protein Vancomycin Trough Rheumatoid Factor Complement C4 Miscellaneous Test Crossmatch Chest x-ray: image reviewed (Improving infiltrates with persistent smal pleural effusions) Allied health notes reviewed: RT
--- NOTE | 2016-11-27 11:09 | Progress Note ---
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 * Patient noted to be tachycardic this morning. Shall dialyze her PRN based on her hemodynamic stability * Her PermCath is no longer being used for IV access at this time * monitor for renal recovery * Rate control per cardiology * Dose medications for renal function * Avoid potential nephrotoxins Subjective Date of service: 11/27/16 Principal diagnosis: Acute resp failure on MVS; S/P Acute CVA; Acute Encephalopathy; JUANITA Interval history: Patient remains in the ICU. Currently on the ventilator with 30% FiO2. Objective - Vital Signs Vital signs: Vital Signs - 12hr 11/27/16 11/27/16 11/27/16 00:00 00:17 00:18 Temperature 100.5 F H Pulse Rate 138 H 136 H 135 H Pulse Rate [ From Monitor] Respiratory 14 Rate Blood Pressure 162/94 167/94 O2 Sat by Pulse 99 96 Oximetry O2 Sat by Pulse 96 Oximetry [ Assessment] 11/27/16 11/27/16 11/27/16 01:00 02:00 03:00 Temperature Pulse Rate 138 H 131 H 134 H Pulse Rate [ From Monitor] Respiratory 13 12 15 Rate Blood Pressure 150/81 141/80 159/92 O2 Sat by Pulse 94 94 95 Oximetry O2 Sat by Pulse Oximetry [ Assessment] 11/27/16 11/27/16 11/27/16 03:30 03:52 04:00 Temperature 100.1 F H Pulse Rate 144 H 142 H Pulse Rate [ From Monitor] Respiratory 16 15 Rate Blood Pressure 159/92 O2 Sat by Pulse 98 Oximetry O2 Sat by Pulse Oximetry [ Assessment] 11/27/16 11/27/16 11/27/16 04:30 05:00 05:30 Temperature Pulse Rate 136 H 141 H 143 H Pulse Rate [ From Monitor] Respiratory 13 17 16 Rate Blood Pressure 159/92 163/84 163/84 O2 Sat by Pulse 98 93 100 Oximetry O2 Sat by Pulse Oximetry [ Assessment] 11/27/16 11/27/16 11/27/16 06:00 06:18 06:30 Temperature Pulse Rate 144 H 140 H 138 H Pulse Rate [ From Monitor] Respiratory 14 14 Rate Blood Pressure 170/80 170/80 170/80 O2 Sat by Pulse 94 97 Oximetry O2 Sat by Pulse Oximetry [ Assessment] 11/27/16 11/27/16 11/27/16 07:00 07:30 08:00 Temperature 101.2 F H Pulse Rate 136 H 138 H 145 H Pulse Rate [ 77 From Monitor] Respiratory 16 15 16 Rate Blood Pressure 137/51 137/51 137/51 O2 Sat by Pulse 88 98 94 Oximetry O2 Sat by Pulse Oximetry [ Assessment] 11/27/16 11/27/16 11/27/16 08:30 09:00 09:16 Temperature Pulse Rate 142 H 144 H Pulse Rate [ From Monitor] Respiratory 22 28 H Rate Blood Pressure 162/77 168/92 O2 Sat by Pulse 90 99 Oximetry O2 Sat by Pulse 99 Oximetry [ Assessment] 11/27/16 11/27/16 09:30 10:00 Temperature Pulse Rate 144 H 145 H Pulse Rate [ From Monitor] Respiratory 29 H 32 H Rate Blood Pressure 168/92 168/92 O2 Sat by Pulse 91 Oximetry O2 Sat by Pulse Oximetry [ Assessment] - General Appearance General appearance: well-developed, well-nourished, appears stated age, intubated EENT: PERRL, mucous membranes moist Neck: no JVD, no thyromegaly, no carotid bruit, supple, other (left IJ PermCath in place) Respiratory: Present: Other (coarse breath sounds bilaterally) Cardiology: regular, normal heart rate, S1S2, no murmurs Gastrointestinal: normal, normoactive bowel sounds Integumentary: no rash, other (2+ pitting edema) - Lab 11/27/16 06:02 11/27/16 06:02 Most recent lab results ABG pH 7.445 pH Units (7.350-7.450) 11/27/16 04:50 ABG pCO2 39.3 mm Hg 11/27/16 04:50 ABG pO2 75.2 mm Hg (80.0-90.0) L 11/27/16 04:50 ABG HCO3 26.4 mmol/L (20.0-26.0) H 11/27/16 04:50 ABG O2 Saturation 97.1 % (95.0-99.0) 11/27/16 04:50 Calcium 8.4 mg/dL (8.4-10.2) 11/27/16 06:02 Phosphorus 1.50 mg/dL (2.5-4.5) L 11/27/16 06:02 Magnesium 1.90 mg/dL (1.7-2.3) 11/27/16 06:02 Urine Creatinine 19.7 mg/dL (0.1-20.0) 11/12/16 10:18 Urine Sodium 36 mEq/L 09/16/16 19:19 Urine Total Protein 16 mg/dL (5-11.8) H 09/16/16 19:19
[2016-11-27] MEDS: PROTONIX IV SCH (11:13)
[2016-11-27] MEDS: HEPARIN SUB-Q SCH ×2 (11:15→21:02)
[2016-11-27] MEDS: QUESTRAN PO SCH (15:01)
--- NOTE | 2016-11-27 15:15 | Progress Note ---
Assessment and Plan Assessment and plan: This patient had high probability of clinically significant sudden and life- threatening deterioration. Patient will require more full and direct intervention and personal management. The critical care time was 34 minutes. This was in addition to the time was spent performing data review patient analysis monitoring of vital signs documentation and medication management. Total Time Spent with Patient (Minutes): 34 - Patient Problems (1) JUANITA (acute kidney injury) Current Visit: Yes Status: Acute Plan to address problem: Acute kidney injury appears to be somewhat more chronic today. May require additional hemodialysis in the a.m. Pt to recieve HD today (2) Acute CVA (cerebrovascular accident) Current Visit: Yes Status: Acute Plan to address problem: Acute CVA left middle cerebral artery prognosis remains extremely poor. Continue to treat with antiplatelet therapy aggressive blood pressure control and lipid therapy. No new changes in mgt. With discahrge planning LTACH will not take pt unless has peg but patient cannot have peg due to previous surgery. Plan is to see if [facility] will take patient and return to hospital of get PEG will place PEG to abdominal wounds have healed. Then we'll try to go to half-way facility. Patient was not a candidate for LTAC (3) Acute blood loss anemia Current Visit: Yes Status: Resolved (4) Acute respiratory failure with hypoxia Current Visit: Yes Status: Acute Plan to address problem: Patient remains intubated continue to treat bronchodilators and steroids unable to wean today. Spoke to pulmonology will be very difficult to wean with volume overload at this time. Continue renal failure. (5) Aspiration pneumonia Current Visit: Yes Status: Acute Qualifiers: Aspiration pneumonia type: A Laterality: L Lung location: L Plan to address problem: Continue antibiotic coverage as per infectious disease continue pressor support (6) Fungemia Current Visit: Yes Status: Resolved (7) Hypertensive emergency Current Visit: Yes Status: Resolved Plan to address problem: Resolved (8) Type 2 diabetes mellitus Current Visit: Yes Status: Chronic Qualifiers: Diabetes mellitus complication status: D Diabetes mellitus complication detail: D Diabetic retinopathy severity: D Proliferative retinopathy type: P Diabetes mellitus macular edema: D Diabetes mellitus manager actuarial insulin use : D Laterality: L Chronic kidney disease stage: C Plan to address problem: Patient has very good control diabetes continue present management. History Interval history: Patient 46-year-old female with extensive CVA now with persistent vegetative state. 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 She has had several episodes that required cardiac resuscitation. Hospitalist Physical - Constitutional Vitals: Temp Pulse Resp BP Pulse Ox 99.6 F 124 H 21 198/107 96 11/27/16 11:54 11/27/16 15:00 11/27/16 15:00 11/27/16 15:00 11/27/16 15:00 General appearance: Present: no acute distress - EENT ENT: other (pupils minimally responsive. Unable to) - Neck Neck: Present: supple, normal ROM - Respiratory Respiratory: bilateral: diminished, rhonchi - Cardiovascular Rhythm: regular - Extremities Extremities: no ischemia, pulses intact, No edema Extremity abnormal: edema Peripheral Pulses: within normal limits - Abdominal General gastrointestinal: soft, non-distended, hypoactive bowel sounds - Neurologic Neurologic: focal deficits, other (patient in persistent vegetative state) Results - Labs CBC & Chem 7: 11/27/16 06:02 11/27/16 06:02 Labs: Laboratory Last Values WBC 11.6 K/mm3 (4.5-11.0) H 11/27/16 06:02 RBC 2.75 M/mm3 (3.65-5.03) L 11/27/16 06:02 Hgb 7.6 gm/dl (10.1-14.3) L 11/27/16 06:02 Hct 23.4 % (30.3-42.9) L 11/27/16 06:02 MCV 85 fl (79-97) 11/27/16 06:02 MCH 28 pg (28-32) 11/27/16 06:02 MCHC 33 % (30-34) 11/27/16 06:02 RDW 16.5 % (13.2-15.2) H 11/27/16 06:02 Plt Count 230 K/mm3 (140-440) 11/27/16 06:02 Lymph % (Auto) 17.0 % (13.4-35.0) 11/26/16 05:13 [place] % (Auto) 12.3 % (0.0-7.3) H 11/26/16 05:13 Eos % (Auto) 0.6 % (0.0-4.3) 11/26/16 05:13 Baso % (Auto) 0.4 % (0.0-1.8) 11/26/16 05:13 Lymph # 1.5 K/mm3 (1.2-5.4) 11/26/16 05:13 [place] # 1.1 K/mm3 (0.0-0.8) H 11/26/16 05:13 Eos # 0.1 K/mm3 (0.0-0.4) 11/26/16 05:13 Baso # 0.0 K/mm3 (0.0-0.1) 11/26/16 05:13 Add Manual Diff Complete 11/22/16 05:00 Total Counted 100 11/22/16 05:00 Seg Neutrophils % 69.7 % (40.0-70.0) 11/26/16 05:13 Seg Neuts % (Manual) 52.0 % (40.0-70.0) 11/22/16 05:00 Band Neutrophils % 37.0 % 11/22/16 05:00 Lymphocytes % (Manual) 7.0 % (13.4-35.0) L 11/22/16 05:00 Reactive Lymphs % (Man) 0 % 11/22/16 05:00 Monocytes % (Manual) 0 % (0.0-7.3) 11/22/16 05:00 Eosinophils % (Manual) 1.0 % (0.0-4.3) 11/22/16 05:00 Basophils % (Manual) 0 % (0.0-1.8) 11/21/16 07:45 Metamyelocytes % 1.0 % 11/22/16 05:00 Myelocytes % 2.0 % 11/22/16 05:00 Promyelocytes % 0 % 11/22/16 05:00 Blast Cells % 0 % 11/22/16 05:00 Nucleated RBC % Not Reportable 11/22/16 05:00 Seg Neutrophils # 6.3 K/mm3 (1.8-7.7) 11/26/16 05:13 Seg Neutrophils # Man 15.4 K/mm3 (1.8-7.7) H 11/22/16 05:00 Band Neutrophils # 11.0 K/mm3 11/22/16 05:00 Lymphocytes # (Manual) 2.1 K/mm3 (1.2-5.4) 11/22/16 05:00 Abs React Lymphs (Man) 0.0 K/mm3 11/22/16 05:00 Monocytes # (Manual) 0.0 K/mm3 (0.0-0.8) 11/22/16 05:00 Eosinophils # (Manual) 0.3 K/mm3 (0.0-0.4) 11/22/16 05:00 Basophils # (Manual) 0.0 K/mm3 (0.0-0.1) 11/22/16 05:00 Metamyelocytes # 0.3 K/mm3 11/22/16 05:00 Myelocytes # 0.6 K/mm3 11/22/16 05:00 Promyelocytes # 0.0 K/mm3 11/22/16 05:00 Blast Cells # 0.0 K/mm3 11/22/16 05:00 Pathologist Review 09/13/16 04:00 WBC Morphology Not Reportable 11/22/16 05:00 Hypersegmented Neuts Not Reportable 11/22/16 05:00 Hyposegmented Neuts Not Reportable 11/22/16 05:00 Hypogranular Neuts Not Reportable 11/22/16 05:00 Smudge Cells Not Reportable 11/22/16 05:00 Toxic Granulation Not Reportable 11/22/16 05:00 Toxic Vacuolation Not Reportable 11/22/16 05:00 Dohle Bodies Not Reportable 11/22/16 05:00 Pelger-Huet Anomaly Not Reportable 11/22/16 05:00 Jasmina Rods Not Reportable 11/22/16 05:00 Platelet Estimate Not Reportable 11/22/16 05:00 Clumped Platelets Not Reportable 11/22/16 05:00 Plt Clumps, EDTA Not Reportable 11/22/16 05:00 Large Platelets Not Reportable 11/22/16 05:00 Giant Platelets Not Reportable 11/22/16 05:00 Platelet Satelliting Not Reportable 11/22/16 05:00 Plt Morphology Comment Not Reportable 11/22/16 05:00 RBC Morphology Not Reportable 11/22/16 05:00 Dimorphic RBCs Not Reportable 11/22/16 05:00 Polychromasia Few 11/22/16 05:00 Hypochromasia Not Reportable 11/22/16 05:00 Poikilocytosis Not Reportable 11/22/16 05:00 Anisocytosis Not Reportable 11/22/16 05:00 Microcytosis Not Reportable 11/22/16 05:00 Macrocytosis Not Reportable 11/22/16 05:00 Spherocytes Not Reportable 11/22/16 05:00 Pappenheimer Bodies Not Reportable 11/22/16 05:00 Sickle Cells Not Reportable 11/22/16 05:00 Target Cells Not Reportable 11/22/16 05:00 Tear Drop Cells Not Reportable 11/22/16 05:00 Ovalocytes Not Reportable 11/22/16 05:00 Stomatocytes Few 10/06/16 03:50 Helmet Cells Not Reportable 11/22/16 05:00 [place] Bodies Not Reportable 11/22/16 05:00 [place] Rings Not Reportable 11/22/16 05:00 [place] Cells Not Reportable 11/22/16 05:00 Bite Cells Not Reportable 11/22/16 05:00 Crenated Cell Not Reportable 11/22/16 05:00 Elliptocytes Not Reportable 11/22/16 05:00 Acanthocytes (Spur) Not Reportable 11/22/16 05:00 Rouleaux Not Reportable 11/22/16 05:00 Hemoglobin C Crystals Not Reportable 11/22/16 05:00 Schistocytes Not Reportable 11/22/16 05:00 Malaria parasites Not Reportable 11/22/16 05:00 ESR > 140.0 mm/Hr (0-20) 09/08/16 11:48 Jun Bodies Not Reportable 11/22/16 05:00 Hem Pathologist Commnt No 11/22/16 05:00 PT 16.8 Sec. (12.2-14.9) H 11/17/16 03:20 INR 1.37 (0.87-1.13) H 11/17/16 03:20 APTT 33.0 Sec. (24.2-36.6) 10/09/16 03:45 Thrombin Time 16.8 Sec. (15.1-19.6) 09/03/16 00:10 Fibrinogen 750 mg/dl (211-480) H 09/08/16 11:48 Lupus Anticoagulant see below 09/12/16 09:59 LA PTT Baseline See scanned report 09/12/16 09:59 dRVVT Confirm Interp Positive (Negative) H 09/12/16 09:59 dRVVT Screen 50:50 See scanned report 09/12/16 09:59 dRVVT Mix Interpret See scanned report 09/12/16 09:59 Protein C Antigen 122 % (70-140) 09/08/16 15:35 Free Protein S 97 % normal (50-147) 09/08/16 15:35 Total Protein S 109 % (70-140) 09/08/16 15:35 Antithrombin III Ag 100 % (80-120) 09/08/16 15:35 Heparin Anti-Xa, Unfract Negative (Negative) 09/29/16 13:35 Factor V Activity 182 % (65-150) H 09/08/16 15:35 POC ABG pH 7.487 (7.35-7.45) H 11/25/16 14:12 ABG pH 7.445 pH Units (7.350-7.450) 11/27/16 04:50 POC ABG pCO2 39.0 (35-45) 11/25/16 14:12 ABG pCO2 39.3 mm Hg 11/27/16 04:50 POC ABG pO2 153 (80-105) H 11/25/16 14:12 ABG pO2 75.2 mm Hg (80.0-90.0) L 11/27/16 04:50 POC ABG HCO3 29.5 11/25/16 14:12 ABG HCO3 26.4 mmol/L (20.0-26.0) H 11/27/16 04:50 POC ABG Total CO2 31 11/25/16 14:12 POC ABG O2 Sat 99 11/25/16 14:12 ABG O2 Saturation 97.1 % (95.0-99.0) 11/27/16 04:50 ABG O2 Content 10.2 (0.0-44) 11/27/16 04:50 POC ABG Base Excess 6 11/25/16 14:12 ABG Base Excess 2.2 mmol/L (-2.0-3.0) 11/27/16 04:50 ABG Hemoglobin 7.6 gm/dl (12.0-16.0) L 11/27/16 04:50 ABG Carboxyhemoglobin 1.9 % (0.0-5.0) 11/27/16 04:50 ABG Methemoglobin 0.4 % (0.0-1.5) 11/27/16 04:50 Oxyhemoglobin 94.8 % (95.0-99.0) L 11/27/16 04:50 FiO2 30 % 11/27/16 04:50 Sodium 138 mmol/L (137-145) 11/27/16 06:02 Potassium 4.6 mmol/L (3.6-5.0) 11/27/16 06:02 Chloride 100.7 mmol/L (98-107) 11/27/16 06:02 Carbon Dioxide 25 mmol/L (22-30) 11/27/16 06:02 Anion Gap 17 mmol/L 11/27/16 06:02 BUN 49 mg/dL (7-17) H 11/27/16 06:02 Creatinine 2.3 mg/dL (0.7-1.2) H 11/27/16 06:02 Estimated GFR 28 ml/min 11/27/16 06:02 BUN/Creatinine Ratio 21 % 11/27/16 06:02 Glucose 99 mg/dL (65-100) 11/27/16 06:02 POC Glucose 103 (70-105) 11/27/16 05:23 Osmolality 351 Mosm/kg 09/16/16 11:47 Lactic Acid 4.50 mmol/L (0.7-2.0) H* 09/28/16 07:25 Calcium 8.4 mg/dL (8.4-10.2) 11/27/16 06:02 Phosphorus 1.50 mg/dL (2.5-4.5) L 11/27/16 06:02 Magnesium 1.90 mg/dL (1.7-2.3) 11/27/16 06:02 Total Bilirubin 0.60 mg/dL (0.1-1.2) 11/25/16 04:42 Direct Bilirubin 0.3 mg/dL (0-0.2) H 10/10/16 05:00 Indirect Bilirubin 0.1 mg/dL 10/10/16 05:00 AST 19 units/L (5-40) 11/25/16 04:42 ALT 15 units/L (7-56) 11/25/16 04:42 Alkaline Phosphatase 142 units/L (35-129) H 11/25/16 04:42 Ammonia 27.0 umol/L (25-60) 09/07/16 08:37 Lactate Dehydrogenase 196 units/L (91-180) H 11/11/16 06:59 Total Creatine Kinase 121 units/L (30-135) 09/29/16 20:12 CK-MB (CK-2) < 1.0 ng/mL (0.0-4.0) 09/29/16 20:12 CK-MB (CK-2) Rel Index 0.8 (0-4) 09/29/16 20:12 Troponin T 0.204 ng/mL (0.00-0.029) H* 09/29/16 20:12 C-Reactive Protein 11.40 mg/dL (0.00-1.30) H 11/05/16 13:25 Total Protein 5.7 g/dL (6.3-8.2) L 11/25/16 04:42 Albumin 1.5 g/dL (3.9-5) L 11/25/16 04:42 Albumin/Globulin Ratio 0.4 % 11/25/16 04:42 Prealbumin 0.180 g/L (0.200-0.400) L 11/06/16 06:25 Triglycerides 137 mg/dL (2-149) 09/29/16 20:12 Cholesterol 31 mg/dL (50-199) L 09/29/16 20:12 LDL Cholesterol Direct 4 mg/dL (50-130) L 09/29/16 20:12 HDL Cholesterol 3 mg/dL (40-59) L 09/29/16 20:12 Cholesterol/HDL Ratio 10.33 % 09/29/16 20:12 Angiotensin Convert Enz See scanned report 09/08/16 11:48 Renin 0.99 ng/mL/h (0.25-5.82) 10/07/16 10:56 Aldosterone <1 ng/dL () 10/07/16 10:56 Aldosterone/Renin Dir see below 10/07/16 10:56 Serotonin Release Assay See scanned report 09/29/16 13:35 TSH 1.010 mlU/mL (0.270-4.200) 09/07/16 08:37 HCG, Qual Negative (Negative) 09/03/16 00:10 Urine Color Yellow (Yellow) 11/05/16 13:09 Urine Turbidity Clear (Clear) 11/05/16 13:09 Urine pH 9.0 (5.0-7.0) H 11/05/16 13:09 Ur Specific [place] 1.011 (1.003-1.030) 11/05/16 13:09 Urine Protein 100 mg/dl mg/dL (Negative) 11/05/16 13:09 Urine Glucose (UA) Neg mg/dL (Negative) 11/05/16 13:09 Urine Ketones Neg mg/dL (Negative) 11/05/16 13:09 Urine Blood Neg (Negative) 11/05/16 13:09 Urine Nitrite Neg (Negative) 11/05/16 13:09 Urine Bilirubin Neg (Negative) 11/05/16 13:09 Urine Urobilinogen < 2.0 mg/dL (<2.0) 11/05/16 13:09 Ur Leukocyte Esterase Neg (Negative) 11/05/16 13:09 Urine WBC (Auto) 4.0 /HPF (0.0-6.0) 11/05/16 13:09 Urine RBC (Auto) 1.0 /HPF (0.0-6.0) 11/05/16 13:09 U Epithel Cells (Auto) 1.0 /HPF (0-13.0) 10/07/16 18:30 Urine Bacteria (Auto) 4+ /HPF (Negative) 11/05/16 13:09 Urine WBC Clumps 2+ /HPF 09/07/16 02:47 Hyaline Casts 4 /LPF 09/07/16 02:47 Urine Mucus Few /HPF 10/07/16 18:30 Urine Yeast (Budding) 3+ /HPF 10/07/16 18:30 Urine Eosinophils None seen (None Seen) 09/07/16 16:00 Urine Total Volume 950 11/12/16 10:18 Urine Creatinine 19.7 mg/dL (0.1-20.0) 11/12/16 10:18 Height (in) 65.0 inches 11/12/16 10:18 Weight (lb) 181.0 lbs 11/12/16 10:18 Creatinine Clearance 5 11/12/16 10:18 Urine Sodium 36 mEq/L 09/16/16 19:19 Urine Total Protein 16 mg/dL (5-11.8) H 09/16/16 19:19 Fluid Total Protein < 3.0 (15.0-45.0) L 11/10/16 14:20 Fluid LDH 123 11/10/16 14:20 Vancomycin Trough 2.3 ug/mL (5.0-20.0) L 09/21/16 13:00 Random Vancomycin 16.0 ug/mL (0-40.0) 11/25/16 04:42 Urine Opiates Screen Presumptive negative 09/03/16 15:11 Urine Methadone Screen Presumptive positive 09/03/16 15:11 Ur Barbiturates Screen Presumptive positive 09/03/16 15:11 Ur Phencyclidine Scrn Presumptive negative 09/03/16 15:11 Ur Amphetamines Screen Presumptive negative 09/03/16 15:11 U Benzodiazepines Scrn Presumptive negative 09/03/16 15:11 Urine Cocaine Screen Presumptive negative 09/03/16 15:11 U Marijuana (THC) Screen Presumptive positive 09/03/16 15:11 Drugs of Abuse Note Disclamer 09/03/16 15:11 Rheumatoid Factor 24 IU/ml (0-13) H 09/08/16 11:48 SAHIL Screen Negative (Negative) 09/07/16 09:20 Proteinase 3 (PR3) Ab <1.0 AI (<1.0) 09/07/16 09:20 Myeloperoxidase Ab <1.0 AI (<1.0) 09/07/16 09:20 Sjogren's Antibody <1.0 AI (<1.0) 09/08/16 15:35 Scl-70 Scleroderma Ab <1.0 AI (<1.0) 09/08/16 15:35 Centromere B Antibody <1.0 AI (<1.0) 09/08/16 12:02 Heparin-induced Plt Ab Negative (Negative) 09/29/16 13:35 UF Heparin High Dose 11 % Release 09/29/16 13:35 SUDHIR UFH Low Dose 0.1 6 % Release 09/29/16 13:35 SUDHIR UFH Low Dose 0.5 8 % Release 09/29/16 13:35 Cardiolipid IgG Ab <14 GPL (<=14) 09/12/16 09:59 Cardiolipid IgA Ab <11 APL (<=11) 09/12/16 09:59 Cardiolipid IgM Ab <12 MPL (<=12) 09/12/16 09:59 Complement C3 148 mg/dL (90-180) 09/07/16 09:20 Complement C4 58 mg/dL (16-47) H 09/07/16 09:20 RPR Nonreactive (Nonreactive) 09/08/16 11:48 Hepatitis A IgM Ab Non-reactive (NonReactive) 09/24/16 14:40 Hep Bs Antigen Non-reactive (Negative) 09/24/16 14:40 Hep B Core IgM Ab Non-reactive (NonReactive) 09/24/16 14:40 Hepatitis C Antibody Non-reactive (NonReactive) 09/24/16 14:40 HIV 1&2 Antibody Rapid Non react (Non React) 09/08/16 11:48 HIV P24 Antigen Non react (Non React) 09/08/16 11:48 Miscellaneous Test Flexitest 1 H 11/05/16 13:25 Blood Type A POSITIVE 11/24/16 11:20 Antibody Screen TNR 11/24/16 11:20 DELORIS Antibody Screen Negative 11/24/16 11:20 Crossmatch See Detail 11/24/16 11:20
[2016-11-27] MEDS ORDERED: TPN ADULT 2,016 ML IV SCH (20:00)
[2016-11-27] MEDS: MORPHINE IV PRN (20:58)
[2016-11-28] MEDS: HumuLIN R SUB-Q SCH ×3 (00:01→12:52)
[2016-11-28] MEDS: APRESOLINE IV SCH ×4 (00:05→18:46)
[2016-11-28] MEDS: ZOFRAN IV PRN ×2 (01:39→08:27)
[2016-11-28] MEDS: MORPHINE IV PRN ×2 (01:39→08:27)
[2016-11-28 06:02] LABS: ABG Base Excess 0.6 mmol/L (-2.0-3.0); ABG HCO3 25.2 mmol/L (20.0-26.0); ABG Methemoglobin 0.5 % (0.0-1.5); ABG Oxygen Saturation 97.6 % (95.0-99.0); ABG PCO2 40.2 mm Hg; ABG PH 7.415 pH Units (7.350-7.450); ABG PO2 99.3 mm Hg (80.0-90.0)
[2016-11-28 06:07] LABS: Calcium 8.7 mg/dL (8.4-10.2)
--- NOTE | 2016-11-28 07:16 | XRay Report ---
AP CHEST: HISTORY: Followup respiratory failure Lines and support devices remain in good position. Mild bibasilar atelectasis or small pleural effusions have developed. I favor atelectatic changes. The upper lung zones are clear. Heart size is stable and within normal limits. IMPRESSION: Mild bibasilar atelectasis.
--- NOTE | 2016-11-28 08:59 | Progress Note ---
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 shift * Acute hypoxic respiratory failure * Left renal artery stenosis * Metabolic acidosis - improved * Anemia * Hyponatremia - multifactorial * tachycardia Plan: * Uneventful hemodialysis on 11/25/16. * Patient noted to be tachycardic this morning. Not stable for dialysis today. She is hard of her currently third spacing . She also has been wetting her diaper per nursing staff. Shall try her on diuretics today * Her PermCath is no longer being used for IV access at this time * monitor for renal recovery * Rate control per cardiology * Dose medications for renal function * Avoid potential nephrotoxins Subjective Date of service: 11/28/16 Principal diagnosis: Acute resp failure on MVS; S/P Acute CVA; Acute Encephalopathy; JUANITA Interval history: Patient remains on the ventilator. Currently on 30% FiO2. Tachycardic at this time with a heart rate in the 130 to 140 range. Oxygen saturation 100%. Currently not on any pressors Objective - Vital Signs Vital signs: Vital Signs - 12hr 11/27/16 11/27/16 11/27/16 21:00 22:00 23:00 Temperature Pulse Rate 129 H 127 H 116 H Pulse Rate [ From Monitor] Respiratory 17 14 15 Rate Blood Pressure 218/116 208/114 198/108 O2 Sat by Pulse 99 100 100 Oximetry O2 Sat by Pulse Oximetry [ Assessment] 11/27/16 11/27/16 11/28/16 23:56 23:59 00:00 Temperature 99.0 F Pulse Rate 114 H 116 H 112 H Pulse Rate [ From Monitor] Respiratory 12 12 Rate Blood Pressure 198/108 202/106 O2 Sat by Pulse 99 100 Oximetry O2 Sat by Pulse 100 Oximetry [ Assessment] 11/28/16 11/28/16 11/28/16 00:03 00:05 00:30 Temperature Pulse Rate 114 H 114 H 128 H Pulse Rate [ From Monitor] Respiratory 19 Rate Blood Pressure 202/106 202/106 O2 Sat by Pulse 100 97 Oximetry O2 Sat by Pulse Oximetry [ Assessment] 11/28/16 11/28/16 11/28/16 01:00 01:30 02:00 Temperature Pulse Rate 127 H 134 H 126 H Pulse Rate [ From Monitor] Respiratory 16 16 11 L Rate Blood Pressure 200/105 O2 Sat by Pulse 98 98 99 Oximetry O2 Sat by Pulse Oximetry [ Assessment] 11/28/16 11/28/16 11/28/16 02:30 03:00 03:30 Temperature Pulse Rate 129 H 130 H 128 H Pulse Rate [ From Monitor] Respiratory 15 13 17 Rate Blood Pressure 190/94 165/99 O2 Sat by Pulse 100 100 99 Oximetry O2 Sat by Pulse Oximetry [ Assessment] 11/28/16 11/28/16 11/28/16 03:40 04:00 04:30 Temperature 99.6 F Pulse Rate 130 H 127 H Pulse Rate [ From Monitor] Respiratory 14 14 Rate Blood Pressure 183/96 O2 Sat by Pulse 100 100 100 Oximetry O2 Sat by Pulse Oximetry [ Assessment] 11/28/16 11/28/16 11/28/16 04:32 05:00 05:21 Temperature Pulse Rate 125 H 132 H 135 H Pulse Rate [ From Monitor] Respiratory 17 Rate Blood Pressure 183/96 173/101 O2 Sat by Pulse 100 100 Oximetry O2 Sat by Pulse Oximetry [ Assessment] 11/28/16 11/28/16 11/28/16 05:30 06:00 06:30 Temperature Pulse Rate 137 H 138 H 135 H Pulse Rate [ From Monitor] Respiratory 16 17 16 Rate Blood Pressure 173/101 148/82 148/82 O2 Sat by Pulse 99 99 99 Oximetry O2 Sat by Pulse Oximetry [ Assessment] 11/28/16 11/28/16 11/28/16 07:00 07:30 08:00 Temperature 99.2 F Pulse Rate 137 H 132 H 142 H Pulse Rate [ 88 From Monitor] Respiratory 20 22 14 Rate Blood Pressure 152/86 152/86 112/63 O2 Sat by Pulse 98 98 100 Oximetry O2 Sat by Pulse Oximetry [ Assessment] - General Appearance General appearance: well-developed, well-nourished, appears stated age, intubated EENT: PERRL, mucous membranes moist Neck: no JVD, no thyromegaly, no carotid bruit, supple Respiratory: Present: Ronchi (few scattered rhonchi) Cardiology: regular, normal heart rate, S1S2, no murmurs Gastrointestinal: normal, normoactive bowel sounds Integumentary: no rash, other (2+ edema) - Lab 11/27/16 06:02 11/28/16 05:33 Most recent lab results ABG pH 7.415 pH Units (7.350-7.450) 11/28/16 04:45 ABG pCO2 40.2 mm Hg 11/28/16 04:45 ABG pO2 99.3 mm Hg (80.0-90.0) H 11/28/16 04:45 ABG HCO3 25.2 mmol/L (20.0-26.0) 11/28/16 04:45 ABG O2 Saturation 97.6 % (95.0-99.0) 11/28/16 04:45 Calcium 8.7 mg/dL (8.4-10.2) 11/28/16 05:33 Phosphorus 1.80 mg/dL (2.5-4.5) L 11/28/16 05:33 Magnesium 1.90 mg/dL (1.7-2.3) 11/28/16 05:33 Urine Creatinine 19.7 mg/dL (0.1-20.0) 11/12/16 10:18 Urine Sodium 36 mEq/L 09/16/16 19:19 Urine Total Protein 16 mg/dL (5-11.8) H 09/16/16 19:19
--- NOTE | 2016-11-28 10:08 | Progress Note ---
Assessment and Plan Acute Hypoxemic Respiratory Failure (now with exacerbation and back on MVS) Hypertension (unable to receive p.o. 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 better (re-ordered metoprolol as not on MAR) - continue HD/UF per nephrology (received trial of lasix but may need UF ultimately) - continue to follow electrolytes and correct as necessary - continue TPN in short term till enteric fistula heals (surgery sighed off) - continue GI & VTE prophylaxis - Continue flu & pneumovax per protocol ... remains critically ill on life sustaining interventions including MVS and at risk for further deterioration including .... > 30' CCT today without overlap Subjective Date of service: 11/28/16 Principal diagnosis: Acute resp failure on MVS; S/P Acute CVA; Acute Encephalopathy; JUANITA Interval history: Patient is seen today for: acute hypoxemic respiratory failure s/p tracheostomy and on MVS Seen and examined at bedside; 24hour events reviewed; nursing and respiratory care staff consulted; no adverse overnight events reported to me; tolerating PSV better today at 10/5 but breathing is mildly labored; frothy secretions at mouth; AMS is persistent; No N/V/F/C; no seizures; no dialysis planned today Objective Vital Signs - 12hr 11/27/16 11/27/16 11/27/16 23:00 23:56 23:59 Temperature Pulse Rate 116 H 114 H 116 H Pulse Rate [ From Monitor] Respiratory 15 12 Rate Blood Pressure 198/108 198/108 O2 Sat by Pulse 100 99 Oximetry O2 Sat by Pulse Oximetry [ Assessment] 11/28/16 11/28/16 11/28/16 00:00 00:03 00:05 Temperature 99.0 F Pulse Rate 112 H 114 H 114 H Pulse Rate [ From Monitor] Respiratory 12 Rate Blood Pressure 202/106 202/106 O2 Sat by Pulse 100 100 Oximetry O2 Sat by Pulse 100 Oximetry [ Assessment] 11/28/16 11/28/16 11/28/16 00:30 01:00 01:30 Temperature Pulse Rate 128 H 127 H 134 H Pulse Rate [ From Monitor] Respiratory 19 16 16 Rate Blood Pressure 202/106 200/105 O2 Sat by Pulse 97 98 98 Oximetry O2 Sat by Pulse Oximetry [ Assessment] 11/28/16 11/28/16 11/28/16 02:00 02:30 03:00 Temperature Pulse Rate 126 H 129 H 130 H Pulse Rate [ From Monitor] Respiratory 11 L 15 13 Rate Blood Pressure 190/94 O2 Sat by Pulse 99 100 100 Oximetry O2 Sat by Pulse Oximetry [ Assessment] 11/28/16 11/28/16 11/28/16 03:30 03:40 04:00 Temperature 99.6 F Pulse Rate 128 H 130 H Pulse Rate [ From Monitor] Respiratory 17 14 Rate Blood Pressure 165/99 183/96 O2 Sat by Pulse 99 100 100 Oximetry O2 Sat by Pulse Oximetry [ Assessment] 11/28/16 11/28/16 11/28/16 04:30 04:32 05:00 Temperature Pulse Rate 127 H 125 H 132 H Pulse Rate [ From Monitor] Respiratory 14 17 Rate Blood Pressure 183/96 O2 Sat by Pulse 100 100 100 Oximetry O2 Sat by Pulse Oximetry [ Assessment] 11/28/16 11/28/16 11/28/16 05:21 05:30 06:00 Temperature Pulse Rate 135 H 137 H 138 H Pulse Rate [ From Monitor] Respiratory 16 17 Rate Blood Pressure 173/101 173/101 148/82 O2 Sat by Pulse 99 99 Oximetry O2 Sat by Pulse Oximetry [ Assessment] 11/28/16 11/28/16 11/28/16 06:30 07:00 07:30 Temperature Pulse Rate 135 H 137 H 132 H Pulse Rate [ From Monitor] Respiratory 16 20 22 Rate Blood Pressure 148/82 152/86 152/86 O2 Sat by Pulse 99 98 98 Oximetry O2 Sat by Pulse Oximetry [ Assessment] 11/28/16 08:00 Temperature 99.2 F Pulse Rate 142 H Pulse Rate [ 88 From Monitor] Respiratory 14 Rate Blood Pressure 112/63 O2 Sat by Pulse 100 Oximetry O2 Sat by Pulse Oximetry [ Assessment] Constitutional: appears uncomfortable, other (eyes open but not tracking movements in room) Eyes: non-icteric, other (tracheostomy tube in midline of neck) ENT: oropharynx moist, oropharyngeal exudate pre Neck: supple, no lymphadenopathy, no JVD, other (no thyromegaly) Effort: mildly labored Ascultation: Bilateral: rales Percussion: Bilateral: dull (bases) Cardiovascular: regular rate and rhythm, other (tachycardia at 136/min) Gastrointestinal: hypoactive bowel sounds, soft, non-tender, non-distended, other (RLQ stomas with colostomy bags as well as LUQ over PEG stoma) Integumentary: rash (to legs), other (normal skin tugor; no tenting) Extremities: no cyanosis, pulses normal, no ischemia or petechiae, edema Neurologic: pupils equal and round, unable to assess, other (encephalopathic; PERRL) Psychiatric: other (unable to assess; not responsive) CBC and BMP: 11/27/16 06:02 11/28/16 05:33 ABG, PT/INR, D-dimer: ABG POC ABG pH 7.487 (7.35-7.45) H 11/25/16 14:12 ABG pH 7.415 pH Units (7.350-7.450) 11/28/16 04:45 POC ABG pCO2 39.0 (35-45) 11/25/16 14:12 ABG pCO2 40.2 mm Hg 11/28/16 04:45 POC ABG pO2 153 (80-105) H 11/25/16 14:12 ABG pO2 99.3 mm Hg (80.0-90.0) H 11/28/16 04:45 POC ABG HCO3 29.5 11/25/16 14:12 POC ABG Total CO2 31 11/25/16 14:12 POC ABG O2 Sat 99 11/25/16 14:12 ABG O2 Saturation 97.6 % (95.0-99.0) 11/28/16 04:45 PT/INR, D-dimer PT 16.8 Sec. (12.2-14.9) H 11/17/16 03:20 INR 1.37 (0.87-1.13) H 11/17/16 03:20 Abnormal lab findings: Abnormal Labs 0709/03/16 09/03/16 12:12 15:07 16:20 WBC RBC Hgb Hct MCV MCH MCHC RDW Plt Count Lymph % (Auto) [place] % (Auto) Lymph # [place] # Baso # Seg Neutrophils % Seg Neuts % (Manual) Lymphocytes % (Manual) Monocytes % (Manual) Eosinophils % (Manual) Basophils % (Manual) Nucleated RBC % Seg Neutrophils # Seg Neutrophils # Man Lymphocytes # (Manual) Monocytes # (Manual) Eosinophils # (Manual) PT INR Fibrinogen dRVVT Confirm Interp Factor V Activity POC ABG pH 7.452 H POC ABG pCO2 POC ABG pO2 ABG pO2 ABG HCO3 ABG Hemoglobin Oxyhemoglobin Sodium Potassium Chloride Carbon Dioxide BUN Creatinine Glucose POC Glucose 178 H Lactic Acid Calcium Phosphorus 2.20 L Magnesium 1.60 L Direct Bilirubin AST ALT Alkaline Phosphatase Lactate Dehydrogenase Troponin T C-Reactive Protein Total Protein Albumin Prealbumin Triglycerides Cholesterol LDL Cholesterol Direct HDL Cholesterol Urine pH Urine WBC (Auto) Urine Creatinine Urine Total Protein Fluid Total Protein Vancomycin Trough Rheumatoid Factor Complement C4 Miscellaneous Test Crossmatch 09/03/16 09/03/16 09/03/16 17:57 17:58 23:50 WBC RBC Hgb Hct MCV MCH MCHC RDW Plt Count Lymph % (Auto) [place] % (Auto) Lymph # [place] # Baso # Seg Neutrophils % Seg Neuts % (Manual) Lymphocytes % (Manual) Monocytes % (Manual) Eosinophils % (Manual) Basophils % (Manual) Nucleated RBC % Seg Neutrophils # Seg Neutrophils # Man Lymphocytes # (Manual) Monocytes # (Manual) Eosinophils # (Manual) PT INR Fibrinogen dRVVT Confirm Interp Factor V Activity POC ABG pH POC ABG pCO2 POC ABG pO2 ABG pO2 ABG HCO3 ABG Hemoglobin Oxyhemoglobin Sodium Potassium Chloride Carbon Dioxide BUN Creatinine Glucose POC Glucose 162 H 145 H Lactic Acid Calcium Phosphorus 2.30 L Magnesium Direct Bilirubin AST ALT Alkaline Phosphatase Lactate Dehydrogenase Troponin T C-Reactive Protein Total Protein Albumin Prealbumin Triglycerides Cholesterol LDL Cholesterol Direct HDL Cholesterol Urine pH Urine WBC (Auto) Urine Creatinine Urine Total Protein Fluid Total Protein Vancomycin Trough Rheumatoid Factor Complement C4 Miscellaneous Test Crossmatch 09/04/16 09/04/16 09/04/16 03:31 03:31 05:42 WBC RBC Hgb 9.7 L D Hct MCV 72 L MCH 23 L MCHC RDW 17.5 H Plt Count Lymph % (Auto) 11.1 L [place] % (Auto) Lymph # [place] # Baso # Seg Neutrophils % 84.3 H Seg Neuts % (Manual) Lymphocytes % (Manual) Monocytes % (Manual) Eosinophils % (Manual) Basophils % (Manual) Nucleated RBC % Seg Neutrophils # 8.9 H Seg Neutrophils # Man Lymphocytes # (Manual) Monocytes # (Manual) Eosinophils # (Manual) PT INR Fibrinogen dRVVT Confirm Interp Factor V Activity POC ABG pH POC ABG pCO2 POC ABG pO2 ABG pO2 ABG HCO3 ABG Hemoglobin Oxyhemoglobin Sodium 135 L Potassium 2.9 L* Chloride 97.2 L Carbon Dioxide 19 L BUN Creatinine 1.7 H Glucose 170 H POC Glucose 152 H Lactic Acid Calcium Phosphorus Magnesium Direct Bilirubin AST ALT Alkaline Phosphatase Lactate Dehydrogenase Troponin T C-Reactive Protein Total Protein Albumin Prealbumin Triglycerides 160 H Cholesterol LDL Cholesterol Direct HDL Cholesterol 31 L Urine pH Urine WBC (Auto) Urine Creatinine Urine Total Protein Fluid Total Protein Vancomycin Trough Rheumatoid Factor Complement C4 Miscellaneous Test Crossmatch 09/04/16 09/04/16 09/04/16 11:34 17:46 23:29 WBC RBC Hgb Hct MCV MCH MCHC RDW Plt Count Lymph % (Auto) [place] % (Auto) Lymph # [place] # Baso # Seg Neutrophils % Seg Neuts % (Manual) Lymphocytes % (Manual) Monocytes % (Manual) Eosinophils % (Manual) Basophils % (Manual) Nucleated RBC % Seg Neutrophils # Seg Neutrophils # Man Lymphocytes # (Manual) Monocytes # (Manual) Eosinophils # (Manual) PT INR Fibrinogen dRVVT Confirm Interp Factor V Activity POC ABG pH POC ABG pCO2 POC ABG pO2 ABG pO2 ABG HCO3 ABG Hemoglobin Oxyhemoglobin Sodium Potassium Chloride Carbon Dioxide BUN Creatinine Glucose POC Glucose 165 H 210 H 139 H Lactic Acid Calcium Phosphorus Magnesium Direct Bilirubin AST ALT Alkaline Phosphatase Lactate Dehydrogenase Troponin T C-Reactive Protein Total Protein Albumin Prealbumin Triglycerides Cholesterol LDL Cholesterol Direct HDL Cholesterol Urine pH Urine WBC (Auto) Urine Creatinine Urine Total Protein Fluid Total Protein Vancomycin Trough Rheumatoid Factor Complement C4 Miscellaneous Test Crossmatch 09/05/16 09/05/16 09/05/16 04:05 04:05 05:38 WBC RBC Hgb Hct MCV 76 L D MCH 23 L MCHC RDW 17.8 H Plt Count Lymph % (Auto) [place] % (Auto) Lymph # [place] # Baso # Seg Neutrophils % Seg Neuts % (Manual) Lymphocytes % (Manual) Monocytes % (Manual) Eosinophils % (Manual) Basophils % (Manual) Nucleated RBC % Seg Neutrophils # Seg Neutrophils # Man Lymphocytes # (Manual) Monocytes # (Manual) Eosinophils # (Manual) PT INR Fibrinogen dRVVT Confirm Interp Factor V Activity POC ABG pH POC ABG pCO2 POC ABG pO2 ABG pO2 ABG HCO3 ABG Hemoglobin Oxyhemoglobin Sodium 134 L Potassium Chloride Carbon Dioxide 18 L BUN Creatinine 1.8 H Glucose 192 H POC Glucose 175 H Lactic Acid Calcium Phosphorus Magnesium Direct Bilirubin AST ALT Alkaline Phosphatase Lactate Dehydrogenase Troponin T C-Reactive Protein Total Protein Albumin Prealbumin Triglycerides Cholesterol LDL Cholesterol Direct HDL Cholesterol Urine pH Urine WBC (Auto) Urine Creatinine Urine Total Protein Fluid Total Protein Vancomycin Trough Rheumatoid Factor Complement C4 Miscellaneous Test Crossmatch 09/05/16 09/05/16 09/05/16 11:38 17:48 23:22 WBC RBC Hgb Hct MCV MCH MCHC RDW Plt Count Lymph % (Auto) [place] % (Auto) Lymph # [place] # Baso # Seg Neutrophils % Seg Neuts % (Manual) Lymphocytes % (Manual) Monocytes % (Manual) Eosinophils % (Manual) Basophils % (Manual) Nucleated RBC % Seg Neutrophils # Seg Neutrophils # Man Lymphocytes # (Manual) Monocytes # (Manual) Eosinophils # (Manual) PT INR Fibrinogen dRVVT Confirm Interp Factor V Activity POC ABG pH POC ABG pCO2 POC ABG pO2 ABG pO2 ABG HCO3 ABG Hemoglobin Oxyhemoglobin Sodium Potassium Chloride Carbon Dioxide BUN Creatinine Glucose POC Glucose 164 H 186 H 195 H Lactic Acid Calcium Phosphorus Magnesium Direct Bilirubin AST ALT Alkaline Phosphatase Lactate Dehydrogenase Troponin T C-Reactive Protein Total Protein Albumin Prealbumin Triglycerides Cholesterol LDL Cholesterol Direct HDL Cholesterol Urine pH Urine WBC (Auto) Urine Creatinine Urine Total Protein Fluid Total Protein Vancomycin Trough Rheumatoid Factor Complement C4 Miscellaneous Test Crossmatch 09/06/16 09/06/16 09/06/16 04:12 05:59 07:32 WBC RBC Hgb Hct MCV MCH MCHC RDW Plt Count Lymph % (Auto) [place] % (Auto) Lymph # [place] # Baso # Seg Neutrophils % Seg Neuts % (Manual) Lymphocytes % (Manual) Monocytes % (Manual) Eosinophils % (Manual) Basophils % (Manual) Nucleated RBC % Seg Neutrophils # Seg Neutrophils # Man Lymphocytes # (Manual) Monocytes # (Manual) Eosinophils # (Manual) PT INR Fibrinogen dRVVT Confirm Interp Factor V Activity POC ABG pH 7.514 H POC ABG pCO2 29.1 L POC ABG pO2 72 L ABG pO2 ABG HCO3 ABG Hemoglobin Oxyhemoglobin Sodium 133 L Potassium 3.4 L Chloride 94.9 L Carbon Dioxide 19 L BUN 30 H Creatinine 2.1 H Glucose 139 H POC Glucose 146 H Lactic Acid Calcium Phosphorus Magnesium Direct Bilirubin AST ALT Alkaline Phosphatase Lactate Dehydrogenase Troponin T C-Reactive Protein Total Protein Albumin Prealbumin Triglycerides Cholesterol LDL Cholesterol Direct HDL Cholesterol Urine pH Urine WBC (Auto) Urine Creatinine Urine Total Protein Fluid Total Protein Vancomycin Trough Rheumatoid Factor Complement C4 Miscellaneous Test Crossmatch 09/06/16 09/06/16 09/06/16 11:57 17:58 19:02 WBC RBC Hgb Hct MCV MCH MCHC RDW Plt Count Lymph % (Auto) [place] % (Auto) Lymph # [place] # Baso # Seg Neutrophils % Seg Neuts % (Manual) Lymphocytes % (Manual) Monocytes % (Manual) Eosinophils % (Manual) Basophils % (Manual) Nucleated RBC % Seg Neutrophils # Seg Neutrophils # Man Lymphocytes # (Manual) Monocytes # (Manual) Eosinophils # (Manual) PT INR Fibrinogen dRVVT Confirm Interp Factor V Activity POC ABG pH 7.465 H POC ABG pCO2 32.0 L POC ABG pO2 ABG pO2 ABG HCO3 ABG Hemoglobin Oxyhemoglobin Sodium Potassium Chloride Carbon Dioxide BUN Creatinine Glucose POC Glucose 165 H 160 H Lactic Acid Calcium Phosphorus Magnesium Direct Bilirubin AST ALT Alkaline Phosphatase Lactate Dehydrogenase Troponin T C-Reactive Protein Total Protein Albumin Prealbumin Triglycerides Cholesterol LDL Cholesterol Direct HDL Cholesterol Urine pH Urine WBC (Auto) Urine Creatinine Urine Total Protein Fluid Total Protein Vancomycin Trough Rheumatoid Factor Complement C4 Miscellaneous Test Crossmatch 09/06/16 09/07/16 09/07/16 23:45 02:47 02:47 WBC RBC Hgb Hct MCV MCH MCHC RDW Plt Count Lymph % (Auto) [place] % (Auto) Lymph # [place] # Baso # Seg Neutrophils % Seg Neuts % (Manual) Lymphocytes % (Manual) Monocytes % (Manual) Eosinophils % (Manual) Basophils % (Manual) Nucleated RBC % Seg Neutrophils # Seg Neutrophils # Man Lymphocytes # (Manual) Monocytes # (Manual) Eosinophils # (Manual) PT INR Fibrinogen dRVVT Confirm Interp Factor V Activity POC ABG pH POC ABG pCO2 POC ABG pO2 ABG pO2 ABG HCO3 ABG Hemoglobin Oxyhemoglobin Sodium Potassium Chloride Carbon Dioxide BUN Creatinine Glucose POC Glucose 204 H Lactic Acid Calcium Phosphorus Magnesium Direct Bilirubin AST ALT Alkaline Phosphatase Lactate Dehydrogenase Troponin T C-Reactive Protein Total Protein Albumin Prealbumin Triglycerides Cholesterol LDL Cholesterol Direct HDL Cholesterol Urine pH Urine WBC (Auto) 68.0 H Urine Creatinine 106.1 H Urine Total Protein Fluid Total Protein Vancomycin Trough Rheumatoid Factor Complement C4 Miscellaneous Test Crossmatch 09/07/16 09/07/16 09/07/16 04:50 06:19 06:39 WBC RBC Hgb Hct MCV MCH MCHC RDW Plt Count Lymph % (Auto) [place] % (Auto) Lymph # [place] # Baso # Seg Neutrophils % Seg Neuts % (Manual) Lymphocytes % (Manual) Monocytes % (Manual) Eosinophils % (Manual) Basophils % (Manual) Nucleated RBC % Seg Neutrophils # Seg Neutrophils # Man Lymphocytes # (Manual) Monocytes # (Manual) Eosinophils # (Manual) PT INR Fibrinogen dRVVT Confirm Interp Factor V Activity POC ABG pH 7.457 H POC ABG pCO2 32.1 L POC ABG pO2 76 L ABG pO2 ABG HCO3 ABG Hemoglobin Oxyhemoglobin Sodium 132 L Potassium Chloride 94.7 L Carbon Dioxide BUN 53 H Creatinine 2.9 H Glucose 151 H POC Glucose 149 H Lactic Acid Calcium Phosphorus Magnesium Direct Bilirubin AST ALT Alkaline Phosphatase Lactate Dehydrogenase Troponin T C-Reactive Protein Total Protein Albumin Prealbumin Triglycerides Cholesterol LDL Cholesterol Direct HDL Cholesterol Urine pH Urine WBC (Auto) Urine Creatinine Urine Total Protein Fluid Total Protein Vancomycin Trough Rheumatoid Factor Complement C4 Miscellaneous Test Crossmatch 09/07/16 09/07/16 09/07/16 09:20 11:43 11:43 WBC 19.4 H RBC Hgb 8.3 L Hct 26.4 L D MCV 72 L D MCH 22 L MCHC RDW 17.9 H Plt Count Lymph % (Auto) 8.5 L [place] % (Auto) Lymph # [place] # 1.0 H Baso # Seg Neutrophils % 85.8 H Seg Neuts % (Manual) Lymphocytes % (Manual) Monocytes % (Manual) Eosinophils % (Manual) Basophils % (Manual) Nucleated RBC % Seg Neutrophils # 16.6 H Seg Neutrophils # Man Lymphocytes # (Manual) Monocytes # (Manual) Eosinophils # (Manual) PT INR Fibrinogen dRVVT Confirm Interp Factor V Activity POC ABG pH POC ABG pCO2 POC ABG pO2 ABG pO2 ABG HCO3 ABG Hemoglobin Oxyhemoglobin Sodium 134 L Potassium Chloride 97.2 L Carbon Dioxide 20 L BUN 58 H Creatinine 2.9 H Glucose 147 H POC Glucose Lactic Acid Calcium Phosphorus 2.40 L Magnesium 2.40 H Direct Bilirubin AST ALT Alkaline Phosphatase Lactate Dehydrogenase Troponin T C-Reactive Protein Total Protein 5.8 L Albumin 2.2 L Prealbumin Triglycerides Cholesterol LDL Cholesterol Direct HDL Cholesterol Urine pH Urine WBC (Auto) Urine Creatinine Urine Total Protein Fluid Total Protein Vancomycin Trough Rheumatoid Factor Complement C4 58 H Miscellaneous Test Crossmatch 09/07/16 09/07/16 09/07/16 11:50 16:00 17:31 WBC RBC Hgb Hct MCV MCH MCHC RDW Plt Count Lymph % (Auto) [place] % (Auto) Lymph # [place] # Baso # Seg Neutrophils % Seg Neuts % (Manual) Lymphocytes % (Manual) Monocytes % (Manual) Eosinophils % (Manual) Basophils % (Manual) Nucleated RBC % Seg Neutrophils # Seg Neutrophils # Man Lymphocytes # (Manual) Monocytes # (Manual) Eosinophils # (Manual) PT INR Fibrinogen dRVVT Confirm Interp Factor V Activity POC ABG pH POC ABG pCO2 POC ABG pO2 158 H ABG pO2 ABG HCO3 ABG Hemoglobin Oxyhemoglobin Sodium Potassium Chloride Carbon Dioxide BUN Creatinine Glucose POC Glucose 175 H Lactic Acid Calcium Phosphorus Magnesium Direct Bilirubin AST ALT Alkaline Phosphatase Lactate Dehydrogenase Troponin T C-Reactive Protein Total Protein Albumin Prealbumin Triglycerides Cholesterol LDL Cholesterol Direct HDL Cholesterol Urine pH Urine WBC (Auto) Urine Creatinine 66.3 H Urine Total Protein Fluid Total Protein Vancomycin Trough Rheumatoid Factor Complement C4 Miscellaneous Test Crossmatch 09/07/16 09/08/16 09/08/16 23:50 05:46 06:18 WBC 17.8 H RBC 3.58 L Hgb 8.1 L Hct 25.5 L MCV 71 L MCH 23 L MCHC RDW 18.4 H Plt Count Lymph % (Auto) [place] % (Auto) Lymph # [place] # Baso # Seg Neutrophils % Seg Neuts % (Manual) 92.0 H Lymphocytes % (Manual) 6.0 L Monocytes % (Manual) Eosinophils % (Manual) Basophils % (Manual) Nucleated RBC % Seg Neutrophils # Seg Neutrophils # Man 16.4 H Lymphocytes # (Manual) 1.1 L Monocytes # (Manual) Eosinophils # (Manual) PT INR Fibrinogen dRVVT Confirm Interp Factor V Activity POC ABG pH POC ABG pCO2 34.3 L POC ABG pO2 71 L ABG pO2 ABG HCO3 ABG Hemoglobin Oxyhemoglobin Sodium Potassium Chloride Carbon Dioxide BUN Creatinine Glucose POC Glucose 216 H Lactic Acid Calcium Phosphorus Magnesium Direct Bilirubin AST ALT Alkaline Phosphatase Lactate Dehydrogenase Troponin T C-Reactive Protein Total Protein Albumin Prealbumin Triglycerides Cholesterol LDL Cholesterol Direct HDL Cholesterol Urine pH Urine WBC (Auto) Urine Creatinine Urine Total Protein Fluid Total Protein Vancomycin Trough Rheumatoid Factor Complement C4 Miscellaneous Test Crossmatch 09/08/16 09/08/16 09/08/16 06:18 06:51 10:55 WBC RBC Hgb Hct MCV MCH MCHC RDW Plt Count Lymph % (Auto) [place] % (Auto) Lymph # [place] # Baso # Seg Neutrophils % Seg Neuts % (Manual) Lymphocytes % (Manual) Monocytes % (Manual) Eosinophils % (Manual) Basophils % (Manual) Nucleated RBC % Seg Neutrophils # Seg Neutrophils # Man Lymphocytes # (Manual) Monocytes # (Manual) Eosinophils # (Manual) PT INR Fibrinogen dRVVT Confirm Interp Factor V Activity POC ABG pH POC ABG pCO2 POC ABG pO2 ABG pO2 ABG HCO3 ABG Hemoglobin Oxyhemoglobin Sodium 133 L Potassium Chloride 96.9 L Carbon Dioxide 20 L BUN 63 H Creatinine 2.7 H Glucose 195 H POC Glucose 204 H 169 H Lactic Acid Calcium Phosphorus Magnesium Direct Bilirubin AST ALT Alkaline Phosphatase Lactate Dehydrogenase Troponin T C-Reactive Protein Total Protein Albumin Prealbumin Triglycerides Cholesterol LDL Cholesterol Direct HDL Cholesterol Urine pH Urine WBC (Auto) Urine Creatinine Urine Total Protein Fluid Total Protein Vancomycin Trough Rheumatoid Factor Complement C4 Miscellaneous Test Crossmatch 09/08/16 09/08/16 09/08/16 11:48 11:48 11:48 WBC RBC Hgb Hct MCV MCH MCHC RDW Plt Count Lymph % (Auto) [place] % (Auto) Lymph # [place] # Baso # Seg Neutrophils % Seg Neuts % (Manual) Lymphocytes % (Manual) Monocytes % (Manual) Eosinophils % (Manual) Basophils % (Manual) Nucleated RBC % Seg Neutrophils # Seg Neutrophils # Man Lymphocytes # (Manual) Monocytes # (Manual) Eosinophils # (Manual) PT INR Fibrinogen 750 H dRVVT Confirm Interp Factor V Activity POC ABG pH POC ABG pCO2 POC ABG pO2 ABG pO2 ABG HCO3 ABG Hemoglobin Oxyhemoglobin Sodium Potassium Chloride Carbon Dioxide BUN Creatinine Glucose POC Glucose Lactic Acid Calcium Phosphorus Magnesium Direct Bilirubin AST ALT Alkaline Phosphatase Lactate Dehydrogenase Troponin T C-Reactive Protein 15.70 H Total Protein Albumin Prealbumin Triglycerides Cholesterol LDL Cholesterol Direct HDL Cholesterol Urine pH Urine WBC (Auto) Urine Creatinine Urine Total Protein Fluid Total Protein Vancomycin Trough Rheumatoid Factor 24 H Complement C4 Miscellaneous Test Crossmatch 09/08/16 09/08/16 09/09/16 15:35 18:25 00:24 WBC RBC Hgb Hct MCV MCH MCHC RDW Plt Count Lymph % (Auto) [place] % (Auto) Lymph # [place] # Baso # Seg Neutrophils % Seg Neuts % (Manual) Lymphocytes % (Manual) Monocytes % (Manual) Eosinophils % (Manual) Basophils % (Manual) Nucleated RBC % Seg Neutrophils # Seg Neutrophils # Man Lymphocytes # (Manual) Monocytes # (Manual) Eosinophils # (Manual) PT INR Fibrinogen dRVVT Confirm Interp Factor V Activity 182 H POC ABG pH POC ABG pCO2 POC ABG pO2 ABG pO2 ABG HCO3 ABG Hemoglobin Oxyhemoglobin Sodium Potassium Chloride Carbon Dioxide BUN Creatinine Glucose POC Glucose 184 H 216 H Lactic Acid Calcium Phosphorus Magnesium Direct Bilirubin AST ALT Alkaline Phosphatase Lactate Dehydrogenase Troponin T C-Reactive Protein Total Protein Albumin Prealbumin Triglycerides Cholesterol LDL Cholesterol Direct HDL Cholesterol Urine pH Urine WBC (Auto) Urine Creatinine Urine Total Protein Fluid Total Protein Vancomycin Trough Rheumatoid Factor Complement C4 Miscellaneous Test Crossmatch 09/09/16 09/09/16 09/09/16 03:00 03:00 04:04 WBC 27.9 H RBC Hgb 8.7 L Hct 28.1 L MCV 72 L MCH 22 L MCHC RDW 18.4 H Plt Count 485 H Lymph % (Auto) [place] % (Auto) Lymph # [place] # Baso # Seg Neutrophils % Seg Neuts % (Manual) 77.0 H Lymphocytes % (Manual) 9.0 L Monocytes % (Manual) Eosinophils % (Manual) Basophils % (Manual) Nucleated RBC % Seg Neutrophils # Seg Neutrophils # Man 21.5 H Lymphocytes # (Manual) Monocytes # (Manual) 2.0 H Eosinophils # (Manual) PT INR Fibrinogen dRVVT Confirm Interp Factor V Activity POC ABG pH POC ABG pCO2 POC ABG pO2 121 H ABG pO2 ABG HCO3 ABG Hemoglobin Oxyhemoglobin Sodium 135 L Potassium Chloride 96.3 L Carbon Dioxide 21 L BUN 83 H Creatinine 3.0 H Glucose 135 H POC Glucose Lactic Acid Calcium Phosphorus Magnesium Direct Bilirubin AST ALT Alkaline Phosphatase Lactate Dehydrogenase Troponin T C-Reactive Protein Total Protein Albumin Prealbumin Triglycerides Cholesterol LDL Cholesterol Direct HDL Cholesterol Urine pH Urine WBC (Auto) Urine Creatinine Urine Total Protein Fluid Total Protein Vancomycin Trough Rheumatoid Factor Complement C4 Miscellaneous Test Crossmatch 09/09/16 09/09/16 09/09/16 05:41 11:55 14:13 WBC RBC Hgb Hct MCV MCH MCHC RDW Plt Count Lymph % (Auto) [place] % (Auto) Lymph # [place] # Baso # Seg Neutrophils % Seg Neuts % (Manual) Lymphocytes % (Manual) Monocytes % (Manual) Eosinophils % (Manual) Basophils % (Manual) Nucleated RBC % Seg Neutrophils # Seg Neutrophils # Man Lymphocytes # (Manual) Monocytes # (Manual) Eosinophils # (Manual) PT INR Fibrinogen dRVVT Confirm Interp Factor V Activity POC ABG pH POC ABG pCO2 POC ABG pO2 ABG pO2 ABG HCO3 ABG Hemoglobin Oxyhemoglobin Sodium Potassium Chloride Carbon Dioxide BUN Creatinine Glucose POC Glucose 155 H 186 H Lactic Acid Calcium Phosphorus Magnesium Direct Bilirubin AST ALT Alkaline Phosphatase Lactate Dehydrogenase Troponin T C-Reactive Protein Total Protein Albumin Prealbumin Triglycerides Cholesterol LDL Cholesterol Direct HDL Cholesterol Urine pH Urine WBC (Auto) 25.0 H Urine Creatinine Urine Total Protein Fluid Total Protein Vancomycin Trough Rheumatoid Factor Complement C4 Miscellaneous Test Crossmatch 09/09/16 09/09/16 09/10/16 17:33 23:13 05:09 WBC RBC Hgb Hct MCV MCH MCHC RDW Plt Count Lymph % (Auto) [place] % (Auto) Lymph # [place] # Baso # Seg Neutrophils % Seg Neuts % (Manual) Lymphocytes % (Manual) Monocytes % (Manual) Eosinophils % (Manual) Basophils % (Manual) Nucleated RBC % Seg Neutrophils # Seg Neutrophils # Man Lymphocytes # (Manual) Monocytes # (Manual) Eosinophils # (Manual) PT INR Fibrinogen dRVVT Confirm Interp Factor V Activity POC ABG pH POC ABG pCO2 POC ABG pO2 74 L ABG pO2 ABG HCO3 ABG Hemoglobin Oxyhemoglobin Sodium Potassium Chloride Carbon Dioxide BUN Creatinine Glucose POC Glucose 211 H 215 H Lactic Acid Calcium Phosphorus Magnesium Direct Bilirubin AST ALT Alkaline Phosphatase Lactate Dehydrogenase Troponin T C-Reactive Protein Total Protein Albumin Prealbumin Triglycerides Cholesterol LDL Cholesterol Direct HDL Cholesterol Urine pH Urine WBC (Auto) Urine Creatinine Urine Total Protein Fluid Total Protein Vancomycin Trough Rheumatoid Factor Complement C4 Miscellaneous Test Crossmatch 09/10/16 09/10/16 09/10/16 05:17 05:17 11:31 WBC 15.8 H RBC 3.25 L Hgb 7.3 L Hct 22.9 L MCV 71 L MCH 23 L MCHC RDW 18.4 H Plt Count Lymph % (Auto) [place] % (Auto) Lymph # [place] # Baso # Seg Neutrophils % Seg Neuts % (Manual) 91.0 H Lymphocytes % (Manual) 4.0 L Monocytes % (Manual) Eosinophils % (Manual) Basophils % (Manual) Nucleated RBC % Seg Neutrophils # Seg Neutrophils # Man 14.4 H Lymphocytes # (Manual) 0.6 L Monocytes # (Manual) Eosinophils # (Manual) PT INR Fibrinogen dRVVT Confirm Interp Factor V Activity POC ABG pH POC ABG pCO2 POC ABG pO2 ABG pO2 ABG HCO3 ABG Hemoglobin Oxyhemoglobin Sodium Potassium Chloride Carbon Dioxide 21 L BUN 93 H Creatinine 2.9 H Glucose 146 H POC Glucose 188 H Lactic Acid Calcium 8.1 L Phosphorus Magnesium Direct Bilirubin AST ALT Alkaline Phosphatase Lactate Dehydrogenase Troponin T C-Reactive Protein Total Protein Albumin Prealbumin Triglycerides Cholesterol LDL Cholesterol Direct HDL Cholesterol Urine pH Urine WBC (Auto) Urine Creatinine Urine Total Protein Fluid Total Protein Vancomycin Trough Rheumatoid Factor Complement C4 Miscellaneous Test Crossmatch 09/10/16 09/10/16 09/10/16 13:17 17:20 23:32 WBC RBC Hgb Hct MCV MCH MCHC RDW Plt Count Lymph % (Auto) [place] % (Auto) Lymph # [place] # Baso # Seg Neutrophils % Seg Neuts % (Manual) Lymphocytes % (Manual) Monocytes % (Manual) Eosinophils % (Manual) Basophils % (Manual) Nucleated RBC % Seg Neutrophils # Seg Neutrophils # Man Lymphocytes # (Manual) Monocytes # (Manual) Eosinophils # (Manual) PT INR Fibrinogen dRVVT Confirm Interp Factor V Activity POC ABG pH POC ABG pCO2 POC ABG pO2 ABG pO2 ABG HCO3 ABG Hemoglobin Oxyhemoglobin Sodium Potassium Chloride Carbon Dioxide BUN Creatinine Glucose POC Glucose 199 H 186 H Lactic Acid Calcium Phosphorus Magnesium Direct Bilirubin AST ALT Alkaline Phosphatase Lactate Dehydrogenase Troponin T C-Reactive Protein Total Protein Albumin Prealbumin Triglycerides Cholesterol LDL Cholesterol Direct HDL Cholesterol Urine pH Urine WBC (Auto) Urine Creatinine Urine Total Protein Fluid Total Protein Vancomycin Trough Rheumatoid Factor Complement C4 Miscellaneous Test Crossmatch See Detail 09/11/16 09/11/16 09/11/16 05:10 05:10 05:17 WBC 28.4 H RBC Hgb 9.2 L Hct 29.3 L D MCV 73 L MCH 23 L MCHC RDW 18.9 H Plt Count 452 H Lymph % (Auto) [place] % (Auto) Lymph # [place] # Baso # Seg Neutrophils % Seg Neuts % (Manual) 89.5 H Lymphocytes % (Manual) 2.0 L Monocytes % (Manual) Eosinophils % (Manual) Basophils % (Manual) Nucleated RBC % Seg Neutrophils # Seg Neutrophils # Man 25.4 H Lymphocytes # (Manual) 0.6 L Monocytes # (Manual) 1.3 H Eosinophils # (Manual) PT INR Fibrinogen dRVVT Confirm Interp Factor V Activity POC ABG pH POC ABG pCO2 POC ABG pO2 ABG pO2 ABG HCO3 ABG Hemoglobin Oxyhemoglobin Sodium 136 L Potassium Chloride Carbon Dioxide 18 L BUN 107 H Creatinine 2.6 H Glucose 187 H POC Glucose 230 H Lactic Acid Calcium 8.3 L Phosphorus Magnesium Direct Bilirubin AST ALT Alkaline Phosphatase Lactate Dehydrogenase Troponin T C-Reactive Protein Total Protein Albumin Prealbumin Triglycerides Cholesterol LDL Cholesterol Direct HDL Cholesterol Urine pH Urine WBC (Auto) Urine Creatinine Urine Total Protein Fluid Total Protein Vancomycin Trough Rheumatoid Factor Complement C4 Miscellaneous Test Crossmatch 09/11/16 09/11/16 09/11/16 05:55 12:02 17:32 WBC RBC Hgb Hct MCV MCH MCHC RDW Plt Count Lymph % (Auto) [place] % (Auto) Lymph # [place] # Baso # Seg Neutrophils % Seg Neuts % (Manual) Lymphocytes % (Manual) Monocytes % (Manual) Eosinophils % (Manual) Basophils % (Manual) Nucleated RBC % Seg Neutrophils # Seg Neutrophils # Man Lymphocytes # (Manual) Monocytes # (Manual) Eosinophils # (Manual) PT INR Fibrinogen dRVVT Confirm Interp Factor V Activity POC ABG pH POC ABG pCO2 33.8 L POC ABG pO2 ABG pO2 ABG HCO3 ABG Hemoglobin Oxyhemoglobin Sodium Potassium Chloride Carbon Dioxide BUN Creatinine Glucose POC Glucose 191 H 239 H Lactic Acid Calcium Phosphorus Magnesium Direct Bilirubin AST ALT Alkaline Phosphatase Lactate Dehydrogenase Troponin T C-Reactive Protein Total Protein Albumin Prealbumin Triglycerides Cholesterol LDL Cholesterol Direct HDL Cholesterol Urine pH Urine WBC (Auto) Urine Creatinine Urine Total Protein Fluid Total Protein Vancomycin Trough Rheumatoid Factor Complement C4 Miscellaneous Test Crossmatch 09/11/16 09/12/16 09/12/16 23:52 05:09 05:32 WBC RBC Hgb Hct MCV MCH MCHC RDW Plt Count Lymph % (Auto) [place] % (Auto) Lymph # [place] # Baso # Seg Neutrophils % Seg Neuts % (Manual) Lymphocytes % (Manual) Monocytes % (Manual) Eosinophils % (Manual) Basophils % (Manual) Nucleated RBC % Seg Neutrophils # Seg Neutrophils # Man Lymphocytes # (Manual) Monocytes # (Manual) Eosinophils # (Manual) PT INR Fibrinogen dRVVT Confirm Interp Factor V Activity POC ABG pH POC ABG pCO2 34.6 L POC ABG pO2 ABG pO2 ABG HCO3 ABG Hemoglobin Oxyhemoglobin Sodium Potassium Chloride Carbon Dioxide BUN Creatinine Glucose POC Glucose 265 H 184 H Lactic Acid Calcium Phosphorus Magnesium Direct Bilirubin AST ALT Alkaline Phosphatase Lactate Dehydrogenase Troponin T C-Reactive Protein Total Protein Albumin Prealbumin Triglycerides Cholesterol LDL Cholesterol Direct HDL Cholesterol Urine pH Urine WBC (Auto) Urine Creatinine Urine Total Protein Fluid Total Protein Vancomycin Trough Rheumatoid Factor Complement C4 Miscellaneous Test Crossmatch 09/12/16 09/12/16 09/12/16 06:45 06:45 07:22 WBC 31.7 H RBC 3.54 L Hgb 8.3 L Hct 25.9 L MCV 73 L MCH 23 L MCHC RDW 18.9 H Plt Count Lymph % (Auto) [place] % (Auto) Lymph # [place] # Baso # Seg Neutrophils % Seg Neuts % (Manual) 88.5 H Lymphocytes % (Manual) 4.5 L Monocytes % (Manual) Eosinophils % (Manual) Basophils % (Manual) Nucleated RBC % Seg Neutrophils # Seg Neutrophils # Man 28.1 H Lymphocytes # (Manual) Monocytes # (Manual) 1.0 H Eosinophils # (Manual) PT INR Fibrinogen dRVVT Confirm Interp Factor V Activity POC ABG pH POC ABG pCO2 POC ABG pO2 ABG pO2 ABG HCO3 ABG Hemoglobin Oxyhemoglobin Sodium Potassium Chloride Carbon Dioxide 20 L BUN 115 H Creatinine 2.7 H Glucose 165 H POC Glucose Lactic Acid Calcium 8.0 L Phosphorus Magnesium Direct Bilirubin AST ALT Alkaline Phosphatase Lactate Dehydrogenase Troponin T C-Reactive Protein Total Protein Albumin Prealbumin Triglycerides 217 H Cholesterol LDL Cholesterol Direct HDL Cholesterol Urine pH Urine WBC (Auto) Urine Creatinine Urine Total Protein Fluid Total Protein Vancomycin Trough Rheumatoid Factor Complement C4 Miscellaneous Test Crossmatch 09/12/16 09/12/16 09/12/16 07:22 09:59 12:21 WBC RBC Hgb Hct MCV MCH MCHC RDW Plt Count Lymph % (Auto) [place] % (Auto) Lymph # [place] # Baso # Seg Neutrophils % Seg Neuts % (Manual) Lymphocytes % (Manual) Monocytes % (Manual) Eosinophils % (Manual) Basophils % (Manual) Nucleated RBC % Seg Neutrophils # Seg Neutrophils # Man Lymphocytes # (Manual) Monocytes # (Manual) Eosinophils # (Manual) PT INR Fibrinogen dRVVT Confirm Interp Positive H Factor V Activity POC ABG pH POC ABG pCO2 POC ABG pO2 ABG pO2 ABG HCO3 ABG Hemoglobin Oxyhemoglobin Sodium Potassium Chloride Carbon Dioxide BUN Creatinine Glucose POC Glucose 224 H Lactic Acid Calcium Phosphorus Magnesium Direct Bilirubin AST ALT Alkaline Phosphatase Lactate Dehydrogenase Troponin T C-Reactive Protein 1.70 H Total Protein Albumin Prealbumin Triglycerides Cholesterol LDL Cholesterol Direct HDL Cholesterol Urine pH Urine WBC (Auto) Urine Creatinine Urine Total Protein Fluid Total Protein Vancomycin Trough Rheumatoid Factor Complement C4 Miscellaneous Test Crossmatch 09/12/16 09/12/16 09/13/16 16:51 23:28 04:00 WBC 45.0 H* RBC Hgb 9.4 L Hct MCV 75 L MCH 23 L MCHC RDW 19.0 H Plt Count 470 H Lymph % (Auto) [place] % (Auto) Lymph # [place] # Baso # Seg Neutrophils % Seg Neuts % (Manual) 89.0 H Lymphocytes % (Manual) 5.0 L Monocytes % (Manual) Eosinophils % (Manual) Basophils % (Manual) Nucleated RBC % Seg Neutrophils # Seg Neutrophils # Man 40.1 H Lymphocytes # (Manual) Monocytes # (Manual) Eosinophils # (Manual) PT INR Fibrinogen dRVVT Confirm Interp Factor V Activity POC ABG pH POC ABG pCO2 POC ABG pO2 ABG pO2 ABG HCO3 ABG Hemoglobin Oxyhemoglobin Sodium Potassium Chloride Carbon Dioxide BUN Creatinine Glucose POC Glucose 169 H 150 H Lactic Acid Calcium Phosphorus Magnesium Direct Bilirubin AST ALT Alkaline Phosphatase Lactate Dehydrogenase Troponin T C-Reactive Protein Total Protein Albumin Prealbumin Triglycerides Cholesterol LDL Cholesterol Direct HDL Cholesterol Urine pH Urine WBC (Auto) Urine Creatinine Urine Total Protein Fluid Total Protein Vancomycin Trough Rheumatoid Factor Complement C4 Miscellaneous Test Crossmatch 09/13/16 09/13/16 09/13/16 04:00 11:26 17:31 WBC RBC Hgb Hct MCV MCH MCHC RDW Plt Count Lymph % (Auto) [place] % (Auto) Lymph # [place] # Baso # Seg Neutrophils % Seg Neuts % (Manual) Lymphocytes % (Manual) Monocytes % (Manual) Eosinophils % (Manual) Basophils % (Manual) Nucleated RBC % Seg Neutrophils # Seg Neutrophils # Man Lymphocytes # (Manual) Monocytes # (Manual) Eosinophils # (Manual) PT INR Fibrinogen dRVVT Confirm Interp Factor V Activity POC ABG pH POC ABG pCO2 POC ABG pO2 ABG pO2 ABG HCO3 ABG Hemoglobin Oxyhemoglobin Sodium Potassium Chloride Carbon Dioxide 20 L BUN 116 H Creatinine 3.0 H Glucose 172 H POC Glucose 140 H 183 H Lactic Acid Calcium Phosphorus Magnesium Direct Bilirubin AST ALT Alkaline Phosphatase Lactate Dehydrogenase Troponin T C-Reactive Protein Total Protein 6.2 L Albumin 2.9 L Prealbumin Triglycerides Cholesterol LDL Cholesterol Direct HDL Cholesterol Urine pH Urine WBC (Auto) Urine Creatinine Urine Total Protein Fluid Total Protein Vancomycin Trough Rheumatoid Factor Complement C4 Miscellaneous Test Crossmatch 09/13/16 09/14/16 09/14/16 23:23 04:06 04:07 WBC 29.4 H RBC Hgb 8.9 L Hct 27.3 L MCV 75 L MCH 24 L MCHC RDW 19.1 H Plt Count Lymph % (Auto) [place] % (Auto) Lymph # [place] # Baso # Seg Neutrophils % Seg Neuts % (Manual) 84.0 H Lymphocytes % (Manual) 6.0 L Monocytes % (Manual) 9.0 H Eosinophils % (Manual) Basophils % (Manual) Nucleated RBC % Seg Neutrophils # Seg Neutrophils # Man 24.7 H Lymphocytes # (Manual) Monocytes # (Manual) 2.6 H Eosinophils # (Manual) PT INR Fibrinogen dRVVT Confirm Interp Factor V Activity POC ABG pH 7.342 L POC ABG pCO2 POC ABG pO2 116 H ABG pO2 ABG HCO3 ABG Hemoglobin Oxyhemoglobin Sodium Potassium Chloride Carbon Dioxide BUN Creatinine Glucose POC Glucose 154 H Lactic Acid Calcium Phosphorus Magnesium Direct Bilirubin AST ALT Alkaline Phosphatase Lactate Dehydrogenase Troponin T C-Reactive Protein Total Protein Albumin Prealbumin Triglycerides Cholesterol LDL Cholesterol Direct HDL Cholesterol Urine pH Urine WBC (Auto) Urine Creatinine Urine Total Protein Fluid Total Protein Vancomycin Trough Rheumatoid Factor Complement C4 Miscellaneous Test Crossmatch 09/14/16 09/14/16 09/14/16 04:07 05:29 12:19 WBC RBC Hgb Hct MCV MCH MCHC RDW Plt Count Lymph % (Auto) [place] % (Auto) Lymph # [place] # Baso # Seg Neutrophils % Seg Neuts % (Manual) Lymphocytes % (Manual) Monocytes % (Manual) Eosinophils % (Manual) Basophils % (Manual) Nucleated RBC % Seg Neutrophils # Seg Neutrophils # Man Lymphocytes # (Manual) Monocytes # (Manual) Eosinophils # (Manual) PT INR Fibrinogen dRVVT Confirm Interp Factor V Activity POC ABG pH POC ABG pCO2 POC ABG pO2 ABG pO2 ABG HCO3 ABG Hemoglobin Oxyhemoglobin Sodium 136 L Potassium Chloride Carbon Dioxide 18 L BUN 121 H Creatinine 2.8 H Glucose 214 H POC Glucose 239 H 181 H Lactic Acid Calcium Phosphorus Magnesium Direct Bilirubin AST ALT Alkaline Phosphatase Lactate Dehydrogenase Troponin T C-Reactive Protein Total Protein Albumin Prealbumin Triglycerides Cholesterol LDL Cholesterol Direct HDL Cholesterol Urine pH Urine WBC (Auto) Urine Creatinine Urine Total Protein Fluid Total Protein Vancomycin Trough Rheumatoid Factor Complement C4 Miscellaneous Test Crossmatch 09/14/16 09/14/16 09/15/16 18:12 23:37 05:00 WBC 26.1 H RBC 3.05 L Hgb 7.2 L Hct 22.9 L MCV 75 L MCH 24 L MCHC RDW 19.0 H Plt Count Lymph % (Auto) [place] % (Auto) Lymph # [place] # Baso # Seg Neutrophils % Seg Neuts % (Manual) Lymphocytes % (Manual) Monocytes % (Manual) Eosinophils % (Manual) Basophils % (Manual) Nucleated RBC % Seg Neutrophils # Seg Neutrophils # Man Lymphocytes # (Manual) Monocytes # (Manual) Eosinophils # (Manual) PT INR Fibrinogen dRVVT Confirm Interp Factor V Activity POC ABG pH POC ABG pCO2 POC ABG pO2 ABG pO2 ABG HCO3 ABG Hemoglobin Oxyhemoglobin Sodium Potassium Chloride Carbon Dioxide BUN Creatinine Glucose POC Glucose 266 H 154 H Lactic Acid Calcium Phosphorus Magnesium Direct Bilirubin AST ALT Alkaline Phosphatase Lactate Dehydrogenase Troponin T C-Reactive Protein Total Protein Albumin Prealbumin Triglycerides Cholesterol LDL Cholesterol Direct HDL Cholesterol Urine pH Urine WBC (Auto) Urine Creatinine Urine Total Protein Fluid Total Protein Vancomycin Trough Rheumatoid Factor Complement C4 Miscellaneous Test Crossmatch 09/15/16 09/15/16 09/15/16 05:00 05:17 12:45 WBC RBC Hgb Hct MCV MCH MCHC RDW Plt Count Lymph % (Auto) [place] % (Auto) Lymph # [place] # Baso # Seg Neutrophils % Seg Neuts % (Manual) Lymphocytes % (Manual) Monocytes % (Manual) Eosinophils % (Manual) Basophils % (Manual) Nucleated RBC % Seg Neutrophils # Seg Neutrophils # Man Lymphocytes # (Manual) Monocytes # (Manual) Eosinophils # (Manual) PT INR Fibrinogen dRVVT Confirm Interp Factor V Activity POC ABG pH POC ABG pCO2 POC ABG pO2 ABG pO2 ABG HCO3 ABG Hemoglobin Oxyhemoglobin Sodium Potassium 5.2 H Chloride Carbon Dioxide 18 L BUN 139 H Creatinine 3.7 H Glucose 227 H POC Glucose 226 H 244 H Lactic Acid Calcium 8.3 L Phosphorus Magnesium Direct Bilirubin AST ALT Alkaline Phosphatase Lactate Dehydrogenase Troponin T C-Reactive Protein Total Protein Albumin Prealbumin Triglycerides Cholesterol LDL Cholesterol Direct HDL Cholesterol Urine pH Urine WBC (Auto) Urine Creatinine Urine Total Protein Fluid Total Protein Vancomycin Trough Rheumatoid Factor Complement C4 Miscellaneous Test Crossmatch 09/15/16 09/15/16 09/15/16 14:32 17:33 23:35 WBC RBC Hgb Hct MCV MCH MCHC RDW Plt Count Lymph % (Auto) [place] % (Auto) Lymph # [place] # Baso # Seg Neutrophils % Seg Neuts % (Manual) Lymphocytes % (Manual) Monocytes % (Manual) Eosinophils % (Manual) Basophils % (Manual) Nucleated RBC % Seg Neutrophils # Seg Neutrophils # Man Lymphocytes # (Manual) Monocytes # (Manual) Eosinophils # (Manual) PT INR Fibrinogen dRVVT Confirm Interp Factor V Activity POC ABG pH POC ABG pCO2 27.7 L POC ABG pO2 120 H ABG pO2 ABG HCO3 ABG Hemoglobin Oxyhemoglobin Sodium Potassium Chloride Carbon Dioxide BUN Creatinine Glucose POC Glucose 232 H 167 H Lactic Acid Calcium Phosphorus Magnesium Direct Bilirubin AST ALT Alkaline Phosphatase Lactate Dehydrogenase Troponin T C-Reactive Protein Total Protein Albumin Prealbumin Triglycerides Cholesterol LDL Cholesterol Direct HDL Cholesterol Urine pH Urine WBC (Auto) Urine Creatinine Urine Total Protein Fluid Total Protein Vancomycin Trough Rheumatoid Factor Complement C4 Miscellaneous Test Crossmatch 09/16/16 09/16/16 09/16/16 03:58 10:27 10:27 WBC 19.0 H RBC 2.77 L Hgb 6.5 L Hct 20.9 L MCV 76 L MCH 23 L MCHC RDW 19.3 H Plt Count Lymph % (Auto) 11.0 L [place] % (Auto) Lymph # [place] # 1.1 H Baso # Seg Neutrophils % 82.5 H Seg Neuts % (Manual) Lymphocytes % (Manual) Monocytes % (Manual) Eosinophils % (Manual) Basophils % (Manual) Nucleated RBC % Seg Neutrophils # 15.7 H Seg Neutrophils # Man Lymphocytes # (Manual) Monocytes # (Manual) Eosinophils # (Manual) PT INR Fibrinogen dRVVT Confirm Interp Factor V Activity POC ABG pH POC ABG pCO2 POC ABG pO2 ABG pO2 ABG HCO3 ABG Hemoglobin Oxyhemoglobin Sodium Potassium Chloride 109.3 H Carbon Dioxide 18 L BUN 139 H Creatinine 4.1 H Glucose 144 H POC Glucose 146 H Lactic Acid Calcium 8.1 L Phosphorus Magnesium Direct Bilirubin AST ALT Alkaline Phosphatase Lactate Dehydrogenase Troponin T C-Reactive Protein Total Protein Albumin Prealbumin Triglycerides Cholesterol LDL Cholesterol Direct HDL Cholesterol Urine pH Urine WBC (Auto) Urine Creatinine Urine Total Protein Fluid Total Protein Vancomycin Trough Rheumatoid Factor Complement C4 Miscellaneous Test Crossmatch 09/16/16 09/16/16 09/16/16 12:04 12:10 13:55 WBC RBC Hgb Hct MCV MCH MCHC RDW Plt Count Lymph % (Auto) [place] % (Auto) Lymph # [place] # Baso # Seg Neutrophils % Seg Neuts % (Manual) Lymphocytes % (Manual) Monocytes % (Manual) Eosinophils % (Manual) Basophils % (Manual) Nucleated RBC % Seg Neutrophils # Seg Neutrophils # Man Lymphocytes # (Manual) Monocytes # (Manual) Eosinophils # (Manual) PT INR Fibrinogen dRVVT Confirm Interp Factor V Activity POC ABG pH POC ABG pCO2 32.9 L POC ABG pO2 ABG pO2 ABG HCO3 ABG Hemoglobin Oxyhemoglobin Sodium Potassium Chloride Carbon Dioxide BUN Creatinine Glucose POC Glucose 185 H Lactic Acid Calcium Phosphorus Magnesium Direct Bilirubin AST ALT Alkaline Phosphatase Lactate Dehydrogenase Troponin T C-Reactive Protein Total Protein Albumin Prealbumin Triglycerides Cholesterol LDL Cholesterol Direct HDL Cholesterol Urine pH Urine WBC (Auto) Urine Creatinine Urine Total Protein Fluid Total Protein Vancomycin Trough Rheumatoid Factor Complement C4 Miscellaneous Test Crossmatch See Detail 09/16/16 09/16/16 09/16/16 17:55 19:19 23:48 WBC RBC Hgb Hct MCV MCH MCHC RDW Plt Count Lymph % (Auto) [place] % (Auto) Lymph # [place] # Baso # Seg Neutrophils % Seg Neuts % (Manual) Lymphocytes % (Manual) Monocytes % (Manual) Eosinophils % (Manual) Basophils % (Manual) Nucleated RBC % Seg Neutrophils # Seg Neutrophils # Man Lymphocytes # (Manual) Monocytes # (Manual) Eosinophils # (Manual) PT INR Fibrinogen dRVVT Confirm Interp Factor V Activity POC ABG pH POC ABG pCO2 POC ABG pO2 ABG pO2 ABG HCO3 ABG Hemoglobin Oxyhemoglobin Sodium Potassium Chloride Carbon Dioxide BUN Creatinine Glucose POC Glucose 222 H 107 H Lactic Acid Calcium Phosphorus Magnesium Direct Bilirubin AST ALT Alkaline Phosphatase Lactate Dehydrogenase Troponin T C-Reactive Protein Total Protein Albumin Prealbumin Triglycerides Cholesterol LDL Cholesterol Direct HDL Cholesterol Urine pH Urine WBC (Auto) Urine Creatinine 47.4 H Urine Total Protein 16 H Fluid Total Protein Vancomycin Trough Rheumatoid Factor Complement C4 Miscellaneous Test Crossmatch 09/17/16 09/17/16 09/17/16 03:45 03:45 04:55 WBC 19.6 H RBC 3.41 L Hgb 8.5 L Hct 26.7 L MCV 78 L MCH 25 L MCHC RDW 19.9 H Plt Count Lymph % (Auto) 9.3 L [place] % (Auto) Lymph # [place] # 1.2 H Baso # Seg Neutrophils % 83.9 H Seg Neuts % (Manual) Lymphocytes % (Manual) Monocytes % (Manual) Eosinophils % (Manual) Basophils % (Manual) Nucleated RBC % Seg Neutrophils # 16.4 H Seg Neutrophils # Man Lymphocytes # (Manual) Monocytes # (Manual) Eosinophils # (Manual) PT INR Fibrinogen dRVVT Confirm Interp Factor V Activity POC ABG pH POC ABG pCO2 POC ABG pO2 ABG pO2 ABG HCO3 ABG Hemoglobin Oxyhemoglobin Sodium 146 H Potassium 5.1 H Chloride 110.9 H Carbon Dioxide 16 L BUN 146 H Creatinine 4.0 H Glucose 108 H POC Glucose 133 H Lactic Acid Calcium Phosphorus Magnesium 3.00 H Direct Bilirubin AST ALT Alkaline Phosphatase Lactate Dehydrogenase Troponin T C-Reactive Protein Total Protein Albumin Prealbumin Triglycerides Cholesterol LDL Cholesterol Direct HDL Cholesterol Urine pH Urine WBC (Auto) Urine Creatinine Urine Total Protein Fluid Total Protein Vancomycin Trough Rheumatoid Factor Complement C4 Miscellaneous Test Crossmatch 09/17/16 09/17/16 09/17/16 11:15 17:33 23:47 WBC RBC Hgb Hct MCV MCH MCHC RDW Plt Count Lymph % (Auto) [place] % (Auto) Lymph # [place] # Baso # Seg Neutrophils % Seg Neuts % (Manual) Lymphocytes % (Manual) Monocytes % (Manual) Eosinophils % (Manual) Basophils % (Manual) Nucleated RBC % Seg Neutrophils # Seg Neutrophils # Man Lymphocytes # (Manual) Monocytes # (Manual) Eosinophils # (Manual) PT INR Fibrinogen dRVVT Confirm Interp Factor V Activity POC ABG pH POC ABG pCO2 POC ABG pO2 ABG pO2 ABG HCO3 ABG Hemoglobin Oxyhemoglobin Sodium Potassium Chloride Carbon Dioxide BUN Creatinine Glucose POC Glucose 176 H 246 H 148 H Lactic Acid Calcium Phosphorus Magnesium Direct Bilirubin AST ALT Alkaline Phosphatase Lactate Dehydrogenase Troponin T C-Reactive Protein Total Protein Albumin Prealbumin Triglycerides Cholesterol LDL Cholesterol Direct HDL Cholesterol Urine pH Urine WBC (Auto) Urine Creatinine Urine Total Protein Fluid Total Protein Vancomycin Trough Rheumatoid Factor Complement C4 Miscellaneous Test Crossmatch 09/18/16 09/18/16 09/18/16 05:33 08:31 08:31 WBC 18.0 H RBC 3.17 L Hgb 9.0 L Hct 25.7 L MCV MCH MCHC 35 H RDW 20.4 H Plt Count Lymph % (Auto) [place] % (Auto) Lymph # [place] # Baso # Seg Neutrophils % Seg Neuts % (Manual) Lymphocytes % (Manual) Monocytes % (Manual) Eosinophils % (Manual) Basophils % (Manual) Nucleated RBC % Seg Neutrophils # Seg Neutrophils # Man Lymphocytes # (Manual) Monocytes # (Manual) Eosinophils # (Manual) PT INR Fibrinogen dRVVT Confirm Interp Factor V Activity POC ABG pH POC ABG pCO2 POC ABG pO2 ABG pO2 ABG HCO3 ABG Hemoglobin Oxyhemoglobin Sodium Potassium Chloride Carbon Dioxide 15 L BUN 124 H Creatinine 3.8 H Glucose POC Glucose 120 H Lactic Acid Calcium 8.1 L Phosphorus Magnesium Direct Bilirubin AST ALT Alkaline Phosphatase Lactate Dehydrogenase Troponin T C-Reactive Protein Total Protein Albumin Prealbumin Triglycerides Cholesterol LDL Cholesterol Direct HDL Cholesterol Urine pH Urine WBC (Auto) Urine Creatinine Urine Total Protein Fluid Total Protein Vancomycin Trough Rheumatoid Factor Complement C4 Miscellaneous Test Crossmatch 09/18/16 09/18/16 09/18/16 12:03 15:34 17:50 WBC RBC Hgb Hct MCV MCH MCHC RDW Plt Count Lymph % (Auto) [place] % (Auto) Lymph # [place] # Baso # Seg Neutrophils % Seg Neuts % (Manual) Lymphocytes % (Manual) Monocytes % (Manual) Eosinophils % (Manual) Basophils % (Manual) Nucleated RBC % Seg Neutrophils # Seg Neutrophils # Man Lymphocytes # (Manual) Monocytes # (Manual) Eosinophils # (Manual) PT INR Fibrinogen dRVVT Confirm Interp Factor V Activity POC ABG pH POC ABG pCO2 25.7 L POC ABG pO2 66 L ABG pO2 ABG HCO3 ABG Hemoglobin Oxyhemoglobin Sodium Potassium Chloride Carbon Dioxide BUN Creatinine Glucose POC Glucose 156 H 220 H Lactic Acid Calcium Phosphorus Magnesium Direct Bilirubin AST ALT Alkaline Phosphatase Lactate Dehydrogenase Troponin T C-Reactive Protein Total Protein Albumin Prealbumin Triglycerides Cholesterol LDL Cholesterol Direct HDL Cholesterol Urine pH Urine WBC (Auto) Urine Creatinine Urine Total Protein Fluid Total Protein Vancomycin Trough Rheumatoid Factor Complement C4 Miscellaneous Test Crossmatch 09/19/16 09/19/16 09/19/16 06:21 09:50 09:50 WBC 17.1 H RBC 3.49 L Hgb 9.0 L Hct 28.1 L MCV MCH 26 L MCHC RDW 20.8 H Plt Count Lymph % (Auto) 11.5 L [place] % (Auto) 7.5 H Lymph # [place] # 1.3 H Baso # Seg Neutrophils % 79.8 H Seg Neuts % (Manual) Lymphocytes % (Manual) Monocytes % (Manual) Eosinophils % (Manual) Basophils % (Manual) Nucleated RBC % Seg Neutrophils # 13.7 H Seg Neutrophils # Man Lymphocytes # (Manual) Monocytes # (Manual) Eosinophils # (Manual) PT INR Fibrinogen dRVVT Confirm Interp Factor V Activity POC ABG pH POC ABG pCO2 POC ABG pO2 ABG pO2 ABG HCO3 ABG Hemoglobin Oxyhemoglobin Sodium Potassium Chloride 108.6 H Carbon Dioxide 15 L BUN 125 H Creatinine 4.1 H Glucose 124 H POC Glucose 119 H Lactic Acid Calcium Phosphorus Magnesium Direct Bilirubin AST ALT Alkaline Phosphatase Lactate Dehydrogenase Troponin T C-Reactive Protein Total Protein Albumin Prealbumin Triglycerides Cholesterol LDL Cholesterol Direct HDL Cholesterol Urine pH Urine WBC (Auto) Urine Creatinine Urine Total Protein Fluid Total Protein Vancomycin Trough Rheumatoid Factor Complement C4 Miscellaneous Test Crossmatch 09/19/16 09/19/16 09/19/16 11:25 17:53 23:36 WBC RBC Hgb Hct MCV MCH MCHC RDW Plt Count Lymph % (Auto) [place] % (Auto) Lymph # [place] # Baso # Seg Neutrophils % Seg Neuts % (Manual) Lymphocytes % (Manual) Monocytes % (Manual) Eosinophils % (Manual) Basophils % (Manual) Nucleated RBC % Seg Neutrophils # Seg Neutrophils # Man Lymphocytes # (Manual) Monocytes # (Manual) Eosinophils # (Manual) PT INR Fibrinogen dRVVT Confirm Interp Factor V Activity POC ABG pH POC ABG pCO2 POC ABG pO2 ABG pO2 ABG HCO3 ABG Hemoglobin Oxyhemoglobin Sodium Potassium Chloride Carbon Dioxide BUN Creatinine Glucose POC Glucose 160 H 245 H 121 H Lactic Acid Calcium Phosphorus Magnesium Direct Bilirubin AST ALT Alkaline Phosphatase Lactate Dehydrogenase Troponin T C-Reactive Protein Total Protein Albumin Prealbumin Triglycerides Cholesterol LDL Cholesterol Direct HDL Cholesterol Urine pH Urine WBC (Auto) Urine Creatinine Urine Total Protein Fluid Total Protein Vancomycin Trough Rheumatoid Factor Complement C4 Miscellaneous Test Crossmatch 09/20/16 09/20/16 09/20/16 04:10 04:10 04:10 WBC 17.0 H RBC 3.21 L Hgb 8.2 L Hct 25.5 L MCV MCH 26 L MCHC RDW 20.9 H Plt Count Lymph % (Auto) [place] % (Auto) Lymph # [place] # Baso # Seg Neutrophils % Seg Neuts % (Manual) Lymphocytes % (Manual) Monocytes % (Manual) Eosinophils % (Manual) Basophils % (Manual) Nucleated RBC % Seg Neutrophils # Seg Neutrophils # Man Lymphocytes # (Manual) Monocytes # (Manual) Eosinophils # (Manual) PT INR Fibrinogen dRVVT Confirm Interp Factor V Activity POC ABG pH POC ABG pCO2 POC ABG pO2 ABG pO2 ABG HCO3 ABG Hemoglobin Oxyhemoglobin Sodium Potassium Chloride 111.0 H Carbon Dioxide 16 L BUN 129 H Creatinine 3.7 H Glucose 115 H POC Glucose Lactic Acid Calcium 8.2 L Phosphorus Magnesium Direct Bilirubin AST ALT Alkaline Phosphatase Lactate Dehydrogenase Troponin T C-Reactive Protein Total Protein Albumin Prealbumin Triglycerides 243 H Cholesterol LDL Cholesterol Direct HDL Cholesterol Urine pH Urine WBC (Auto) Urine Creatinine Urine Total Protein Fluid Total Protein Vancomycin Trough Rheumatoid Factor Complement C4 Miscellaneous Test Crossmatch 09/20/16 09/20/16 09/20/16 05:40 11:52 16:50 WBC RBC Hgb Hct MCV MCH MCHC RDW Plt Count Lymph % (Auto) [place] % (Auto) Lymph # [place] # Baso # Seg Neutrophils % Seg Neuts % (Manual) Lymphocytes % (Manual) Monocytes % (Manual) Eosinophils % (Manual) Basophils % (Manual) Nucleated RBC % Seg Neutrophils # Seg Neutrophils # Man Lymphocytes # (Manual) Monocytes # (Manual) Eosinophils # (Manual) PT INR Fibrinogen dRVVT Confirm Interp Factor V Activity POC ABG pH POC ABG pCO2 POC ABG pO2 ABG pO2 ABG HCO3 ABG Hemoglobin Oxyhemoglobin Sodium Potassium Chloride Carbon Dioxide BUN Creatinine Glucose POC Glucose 131 H 183 H 236 H Lactic Acid Calcium Phosphorus Magnesium Direct Bilirubin AST ALT Alkaline Phosphatase Lactate Dehydrogenase Troponin T C-Reactive Protein Total Protein Albumin Prealbumin Triglycerides Cholesterol LDL Cholesterol Direct HDL Cholesterol Urine pH Urine WBC (Auto) Urine Creatinine Urine Total Protein Fluid Total Protein Vancomycin Trough Rheumatoid Factor Complement C4 Miscellaneous Test Crossmatch 09/20/16 09/21/16 09/21/16 23:51 03:30 04:44 WBC RBC Hgb Hct MCV MCH MCHC RDW Plt Count Lymph % (Auto) [place] % (Auto) Lymph # [place] # Baso # Seg Neutrophils % Seg Neuts % (Manual) Lymphocytes % (Manual) Monocytes % (Manual) Eosinophils % (Manual) Basophils % (Manual) Nucleated RBC % Seg Neutrophils # Seg Neutrophils # Man Lymphocytes # (Manual) Monocytes # (Manual) Eosinophils # (Manual) PT INR Fibrinogen dRVVT Confirm Interp Factor V Activity POC ABG pH POC ABG pCO2 POC ABG pO2 ABG pO2 ABG HCO3 ABG Hemoglobin Oxyhemoglobin Sodium Potassium Chloride Carbon Dioxide BUN Creatinine Glucose POC Glucose 114 H 141 H Lactic Acid Calcium Phosphorus Magnesium 2.70 H Direct Bilirubin AST ALT Alkaline Phosphatase Lactate Dehydrogenase Troponin T C-Reactive Protein Total Protein Albumin Prealbumin Triglycerides Cholesterol LDL Cholesterol Direct HDL Cholesterol Urine pH Urine WBC (Auto) Urine Creatinine Urine Total Protein Fluid Total Protein Vancomycin Trough Rheumatoid Factor Complement C4 Miscellaneous Test Crossmatch 09/21/16 09/21/16 09/21/16 07:45 07:45 10:01 WBC 13.8 H RBC 2.94 L Hgb 7.5 L Hct 23.5 L MCV MCH 26 L MCHC RDW 21.2 H Plt Count Lymph % (Auto) 6.9 L [place] % (Auto) 9.4 H Lymph # 0.9 L [place] # 1.3 H Baso # Seg Neutrophils % 83.2 H Seg Neuts % (Manual) Lymphocytes % (Manual) Monocytes % (Manual) Eosinophils % (Manual) Basophils % (Manual) Nucleated RBC % Seg Neutrophils # 11.5 H Seg Neutrophils # Man Lymphocytes # (Manual) Monocytes # (Manual) Eosinophils # (Manual) PT INR Fibrinogen dRVVT Confirm Interp Factor V Activity POC ABG pH 7.308 L POC ABG pCO2 31.9 L POC ABG pO2 148 H ABG pO2 ABG HCO3 ABG Hemoglobin Oxyhemoglobin Sodium 147 H Potassium Chloride 114.2 H Carbon Dioxide 15 L BUN 120 H Creatinine 3.9 H Glucose 156 H POC Glucose Lactic Acid Calcium 8.2 L Phosphorus Magnesium Direct Bilirubin AST ALT Alkaline Phosphatase Lactate Dehydrogenase Troponin T C-Reactive Protein Total Protein Albumin Prealbumin Triglycerides Cholesterol LDL Cholesterol Direct HDL Cholesterol Urine pH Urine WBC (Auto) Urine Creatinine Urine Total Protein Fluid Total Protein Vancomycin Trough Rheumatoid Factor Complement C4 Miscellaneous Test Crossmatch 09/21/16 09/21/16 09/21/16 12:00 12:03 13:00 WBC RBC Hgb Hct MCV MCH MCHC RDW Plt Count Lymph % (Auto) [place] % (Auto) Lymph # [place] # Baso # Seg Neutrophils % Seg Neuts % (Manual) Lymphocytes % (Manual) Monocytes % (Manual) Eosinophils % (Manual) Basophils % (Manual) Nucleated RBC % Seg Neutrophils # Seg Neutrophils # Man Lymphocytes # (Manual) Monocytes # (Manual) Eosinophils # (Manual) PT INR Fibrinogen dRVVT Confirm Interp Factor V Activity POC ABG pH POC ABG pCO2 POC ABG pO2 ABG pO2 ABG HCO3 ABG Hemoglobin Oxyhemoglobin Sodium Potassium Chloride Carbon Dioxide BUN Creatinine Glucose POC Glucose 163 H Lactic Acid Calcium Phosphorus Magnesium Direct Bilirubin AST ALT Alkaline Phosphatase Lactate Dehydrogenase Troponin T C-Reactive Protein Total Protein Albumin Prealbumin Triglycerides Cholesterol LDL Cholesterol Direct HDL Cholesterol Urine pH Urine WBC (Auto) Urine Creatinine 54.8 H Urine Total Protein Fluid Total Protein Vancomycin Trough 2.3 L Rheumatoid Factor Complement C4 Miscellaneous Test Crossmatch 09/21/16 09/21/16 09/22/16 16:51 23:17 06:27 WBC RBC Hgb Hct MCV MCH MCHC RDW Plt Count Lymph % (Auto) [place] % (Auto) Lymph # [place] # Baso # Seg Neutrophils % Seg Neuts % (Manual) Lymphocytes % (Manual) Monocytes % (Manual) Eosinophils % (Manual) Basophils % (Manual) Nucleated RBC % Seg Neutrophils # Seg Neutrophils # Man Lymphocytes # (Manual) Monocytes # (Manual) Eosinophils # (Manual) PT INR Fibrinogen dRVVT Confirm Interp Factor V Activity POC ABG pH POC ABG pCO2 POC ABG pO2 ABG pO2 ABG HCO3 ABG Hemoglobin Oxyhemoglobin Sodium Potassium Chloride Carbon Dioxide BUN Creatinine Glucose POC Glucose 206 H 114 H 115 H Lactic Acid Calcium Phosphorus Magnesium Direct Bilirubin AST ALT Alkaline Phosphatase Lactate Dehydrogenase Troponin T C-Reactive Protein Total Protein Albumin Prealbumin Triglycerides Cholesterol LDL Cholesterol Direct HDL Cholesterol Urine pH Urine WBC (Auto) Urine Creatinine Urine Total Protein Fluid Total Protein Vancomycin Trough Rheumatoid Factor Complement C4 Miscellaneous Test Crossmatch 09/22/16 09/22/16 09/22/16 07:50 07:50 12:00 WBC 17.8 H RBC 3.04 L Hgb 8.0 L Hct 24.7 L MCV MCH 26 L MCHC RDW 21.6 H Plt Count Lymph % (Auto) [place] % (Auto) Lymph # [place] # Baso # Seg Neutrophils % Seg Neuts % (Manual) Lymphocytes % (Manual) Monocytes % (Manual) Eosinophils % (Manual) Basophils % (Manual) Nucleated RBC % Seg Neutrophils # Seg Neutrophils # Man Lymphocytes # (Manual) Monocytes # (Manual) Eosinophils # (Manual) PT INR Fibrinogen dRVVT Confirm Interp Factor V Activity POC ABG pH POC ABG pCO2 POC ABG pO2 ABG pO2 ABG HCO3 ABG Hemoglobin Oxyhemoglobin Sodium 150 H Potassium Chloride 118.2 H Carbon Dioxide 14 L BUN 111 H Creatinine 3.7 H Glucose 157 H POC Glucose 183 H Lactic Acid Calcium Phosphorus Magnesium Direct Bilirubin AST ALT Alkaline Phosphatase Lactate Dehydrogenase Troponin T C-Reactive Protein Total Protein Albumin Prealbumin Triglycerides Cholesterol LDL Cholesterol Direct HDL Cholesterol Urine pH Urine WBC (Auto) Urine Creatinine Urine Total Protein Fluid Total Protein Vancomycin Trough Rheumatoid Factor Complement C4 Miscellaneous Test Crossmatch 09/22/16 09/22/16 09/23/16 17:29 23:10 05:00 WBC 19.2 H RBC 3.13 L Hgb 8.0 L Hct 25.2 L MCV MCH 26 L MCHC RDW 22.1 H Plt Count Lymph % (Auto) [place] % (Auto) Lymph # [place] # Baso # Seg Neutrophils % Seg Neuts % (Manual) 92.0 H Lymphocytes % (Manual) 3.0 L Monocytes % (Manual) Eosinophils % (Manual) Basophils % (Manual) Nucleated RBC % Seg Neutrophils # Seg Neutrophils # Man 17.7 H Lymphocytes # (Manual) 0.6 L Monocytes # (Manual) Eosinophils # (Manual) PT INR Fibrinogen dRVVT Confirm Interp Factor V Activity POC ABG pH POC ABG pCO2 POC ABG pO2 ABG pO2 ABG HCO3 ABG Hemoglobin Oxyhemoglobin Sodium Potassium Chloride Carbon Dioxide BUN Creatinine Glucose POC Glucose 197 H 169 H Lactic Acid Calcium Phosphorus Magnesium Direct Bilirubin AST ALT Alkaline Phosphatase Lactate Dehydrogenase Troponin T C-Reactive Protein Total Protein Albumin Prealbumin Triglycerides Cholesterol LDL Cholesterol Direct HDL Cholesterol Urine pH Urine WBC (Auto) Urine Creatinine Urine Total Protein Fluid Total Protein Vancomycin Trough Rheumatoid Factor Complement C4 Miscellaneous Test Crossmatch 09/23/16 09/23/16 09/23/16 05:00 05:00 05:10 WBC RBC Hgb Hct MCV MCH MCHC RDW Plt Count Lymph % (Auto) [place] % (Auto) Lymph # [place] # Baso # Seg Neutrophils % Seg Neuts % (Manual) Lymphocytes % (Manual) Monocytes % (Manual) Eosinophils % (Manual) Basophils % (Manual) Nucleated RBC % Seg Neutrophils # Seg Neutrophils # Man Lymphocytes # (Manual) Monocytes # (Manual) Eosinophils # (Manual) PT INR Fibrinogen dRVVT Confirm Interp Factor V Activity POC ABG pH POC ABG pCO2 POC ABG pO2 ABG pO2 ABG HCO3 ABG Hemoglobin Oxyhemoglobin Sodium 147 H Potassium 3.2 L Chloride 115.7 H Carbon Dioxide 13 L BUN 111 H Creatinine 3.8 H Glucose 194 H POC Glucose 188 H Lactic Acid Calcium 7.3 L D Phosphorus Magnesium Direct Bilirubin AST ALT Alkaline Phosphatase Lactate Dehydrogenase Troponin T C-Reactive Protein 3.20 H Total Protein Albumin Prealbumin Triglycerides Cholesterol LDL Cholesterol Direct HDL Cholesterol Urine pH Urine WBC (Auto) Urine Creatinine Urine Total Protein Fluid Total Protein Vancomycin Trough Rheumatoid Factor Complement C4 Miscellaneous Test Crossmatch 09/23/16 09/23/16 09/23/16 11:37 12:29 18:01 WBC RBC Hgb Hct MCV MCH MCHC RDW Plt Count Lymph % (Auto) [place] % (Auto) Lymph # [place] # Baso # Seg Neutrophils % Seg Neuts % (Manual) Lymphocytes % (Manual) Monocytes % (Manual) Eosinophils % (Manual) Basophils % (Manual) Nucleated RBC % Seg Neutrophils # Seg Neutrophils # Man Lymphocytes # (Manual) Monocytes # (Manual) Eosinophils # (Manual) PT INR Fibrinogen dRVVT Confirm Interp Factor V Activity POC ABG pH POC ABG pCO2 18.9 L POC ABG pO2 143 H ABG pO2 ABG HCO3 ABG Hemoglobin Oxyhemoglobin Sodium Potassium Chloride Carbon Dioxide BUN Creatinine Glucose POC Glucose 153 H 108 H Lactic Acid Calcium Phosphorus Magnesium Direct Bilirubin AST ALT Alkaline Phosphatase Lactate Dehydrogenase Troponin T C-Reactive Protein Total Protein Albumin Prealbumin Triglycerides Cholesterol LDL Cholesterol Direct HDL Cholesterol Urine pH Urine WBC (Auto) Urine Creatinine Urine Total Protein Fluid Total Protein Vancomycin Trough Rheumatoid Factor Complement C4 Miscellaneous Test Crossmatch 09/23/16 09/23/16 09/24/16 21:19 23:43 05:16 WBC RBC Hgb Hct MCV MCH MCHC RDW Plt Count Lymph % (Auto) [place] % (Auto) Lymph # [place] # Baso # Seg Neutrophils % Seg Neuts % (Manual) Lymphocytes % (Manual) Monocytes % (Manual) Eosinophils % (Manual) Basophils % (Manual) Nucleated RBC % Seg Neutrophils # Seg Neutrophils # Man Lymphocytes # (Manual) Monocytes # (Manual) Eosinophils # (Manual) PT INR Fibrinogen dRVVT Confirm Interp Factor V Activity POC ABG pH POC ABG pCO2 17.3 L POC ABG pO2 112 H ABG pO2 ABG HCO3 ABG Hemoglobin Oxyhemoglobin Sodium Potassium Chloride Carbon Dioxide BUN Creatinine Glucose POC Glucose 143 H 164 H Lactic Acid Calcium Phosphorus Magnesium Direct Bilirubin AST ALT Alkaline Phosphatase Lactate Dehydrogenase Troponin T C-Reactive Protein Total Protein Albumin Prealbumin Triglycerides Cholesterol LDL Cholesterol Direct HDL Cholesterol Urine pH Urine WBC (Auto) Urine Creatinine Urine Total Protein Fluid Total Protein Vancomycin Trough Rheumatoid Factor Complement C4 Miscellaneous Test Crossmatch 09/24/16 09/24/16 09/24/16 05:21 11:58 17:06 WBC RBC Hgb Hct MCV MCH MCHC RDW Plt Count Lymph % (Auto) [place] % (Auto) Lymph # [place] # Baso # Seg Neutrophils % Seg Neuts % (Manual) Lymphocytes % (Manual) Monocytes % (Manual) Eosinophils % (Manual) Basophils % (Manual) Nucleated RBC % Seg Neutrophils # Seg Neutrophils # Man Lymphocytes # (Manual) Monocytes # (Manual) Eosinophils # (Manual) PT INR Fibrinogen dRVVT Confirm Interp Factor V Activity POC ABG pH POC ABG pCO2 POC ABG pO2 ABG pO2 ABG HCO3 ABG Hemoglobin Oxyhemoglobin Sodium Potassium Chloride Carbon Dioxide 10 L BUN 103 H Creatinine 4.3 H Glucose 163 H POC Glucose 173 H 167 H Lactic Acid Calcium 6.5 L Phosphorus Magnesium Direct Bilirubin AST ALT Alkaline Phosphatase Lactate Dehydrogenase Troponin T C-Reactive Protein Total Protein Albumin Prealbumin Triglycerides Cholesterol LDL Cholesterol Direct HDL Cholesterol Urine pH Urine WBC (Auto) Urine Creatinine Urine Total Protein Fluid Total Protein Vancomycin Trough Rheumatoid Factor Complement C4 Miscellaneous Test Crossmatch 09/24/16 09/24/16 09/24/16 20:15 21:02 23:48 WBC RBC Hgb Hct MCV MCH MCHC RDW Plt Count Lymph % (Auto) [place] % (Auto) Lymph # [place] # Baso # Seg Neutrophils % Seg Neuts % (Manual) Lymphocytes % (Manual) Monocytes % (Manual) Eosinophils % (Manual) Basophils % (Manual) Nucleated RBC % Seg Neutrophils # Seg Neutrophils # Man Lymphocytes # (Manual) Monocytes # (Manual) Eosinophils # (Manual) PT INR Fibrinogen dRVVT Confirm Interp Factor V Activity POC ABG pH 7.288 L POC ABG pCO2 30.2 L 21.5 L POC ABG pO2 32 L 39 L ABG pO2 ABG HCO3 ABG Hemoglobin Oxyhemoglobin Sodium Potassium Chloride Carbon Dioxide BUN Creatinine Glucose POC Glucose 109 H Lactic Acid Calcium Phosphorus Magnesium Direct Bilirubin AST ALT Alkaline Phosphatase Lactate Dehydrogenase Troponin T C-Reactive Protein Total Protein Albumin Prealbumin Triglycerides Cholesterol LDL Cholesterol Direct HDL Cholesterol Urine pH Urine WBC (Auto) Urine Creatinine Urine Total Protein Fluid Total Protein Vancomycin Trough Rheumatoid Factor Complement C4 Miscellaneous Test Crossmatch 09/25/16 09/25/16 09/25/16 04:20 04:20 04:20 WBC RBC 2.58 L Hgb 7.0 L Hct 21.0 L MCV MCH 27 L MCHC RDW 23.8 H Plt Count Lymph % (Auto) [place] % (Auto) Lymph # [place] # Baso # Seg Neutrophils % Seg Neuts % (Manual) Lymphocytes % (Manual) 12.0 L Monocytes % (Manual) Eosinophils % (Manual) 7.0 H Basophils % (Manual) 2.0 H Nucleated RBC % Seg Neutrophils # Seg Neutrophils # Man Lymphocytes # (Manual) 0.9 L Monocytes # (Manual) Eosinophils # (Manual) 0.5 H PT INR Fibrinogen dRVVT Confirm Interp Factor V Activity POC ABG pH POC ABG pCO2 POC ABG pO2 ABG pO2 ABG HCO3 ABG Hemoglobin Oxyhemoglobin Sodium Potassium Chloride Carbon Dioxide 15 L BUN 72 H Creatinine 3.8 H Glucose POC Glucose Lactic Acid Calcium 6.0 L Phosphorus 4.60 H Magnesium 1.60 L Direct Bilirubin AST ALT Alkaline Phosphatase Lactate Dehydrogenase Troponin T C-Reactive Protein Total Protein Albumin Prealbumin Triglycerides Cholesterol LDL Cholesterol Direct HDL Cholesterol Urine pH Urine WBC (Auto) Urine Creatinine Urine Total Protein Fluid Total Protein Vancomycin Trough Rheumatoid Factor Complement C4 Miscellaneous Test Crossmatch 09/25/16 09/25/16 09/25/16 04:57 08:02 10:30 WBC RBC Hgb Hct MCV MCH MCHC RDW Plt Count Lymph % (Auto) [place] % (Auto) Lymph # [place] # Baso # Seg Neutrophils % Seg Neuts % (Manual) Lymphocytes % (Manual) Monocytes % (Manual) Eosinophils % (Manual) Basophils % (Manual) Nucleated RBC % Seg Neutrophils # Seg Neutrophils # Man Lymphocytes # (Manual) Monocytes # (Manual) Eosinophils # (Manual) PT INR Fibrinogen dRVVT Confirm Interp Factor V Activity POC ABG pH POC ABG pCO2 24.7 L POC ABG pO2 152 H ABG pO2 ABG HCO3 ABG Hemoglobin Oxyhemoglobin Sodium Potassium Chloride Carbon Dioxide BUN Creatinine Glucose POC Glucose 113 H Lactic Acid Calcium Phosphorus Magnesium Direct Bilirubin AST ALT Alkaline Phosphatase Lactate Dehydrogenase Troponin T C-Reactive Protein Total Protein Albumin Prealbumin Triglycerides Cholesterol LDL Cholesterol Direct HDL Cholesterol Urine pH Urine WBC (Auto) Urine Creatinine Urine Total Protein Fluid Total Protein Vancomycin Trough Rheumatoid Factor Complement C4 Miscellaneous Test Crossmatch See Detail 09/25/16 09/25/16 09/25/16 12:05 17:44 23:47 WBC RBC Hgb Hct MCV MCH MCHC RDW Plt Count Lymph % (Auto) [place] % (Auto) Lymph # [place] # Baso # Seg Neutrophils % Seg Neuts % (Manual) Lymphocytes % (Manual) Monocytes % (Manual) Eosinophils % (Manual) Basophils % (Manual) Nucleated RBC % Seg Neutrophils # Seg Neutrophils # Man Lymphocytes # (Manual) Monocytes # (Manual) Eosinophils # (Manual) PT INR Fibrinogen dRVVT Confirm Interp Factor V Activity POC ABG pH POC ABG pCO2 POC ABG pO2 ABG pO2 ABG HCO3 ABG Hemoglobin Oxyhemoglobin Sodium Potassium Chloride Carbon Dioxide BUN Creatinine Glucose POC Glucose 117 H 119 H 150 H Lactic Acid Calcium Phosphorus Magnesium Direct Bilirubin AST ALT Alkaline Phosphatase Lactate Dehydrogenase Troponin T C-Reactive Protein Total Protein Albumin Prealbumin Triglycerides Cholesterol LDL Cholesterol Direct HDL Cholesterol Urine pH Urine WBC (Auto) Urine Creatinine Urine Total Protein Fluid Total Protein Vancomycin Trough Rheumatoid Factor Complement C4 Miscellaneous Test Crossmatch 09/26/16 09/26/16 09/26/16 04:25 04:25 04:25 WBC RBC 2.65 L Hgb 7.4 L Hct 21.6 L MCV MCH MCHC RDW 22.5 H Plt Count Lymph % (Auto) [place] % (Auto) Lymph # [place] # Baso # Seg Neutrophils % Seg Neuts % (Manual) Lymphocytes % (Manual) 6.0 L Monocytes % (Manual) Eosinophils % (Manual) 11.0 H Basophils % (Manual) Nucleated RBC % Seg Neutrophils # Seg Neutrophils # Man Lymphocytes # (Manual) 0.4 L Monocytes # (Manual) Eosinophils # (Manual) 0.6 H PT INR Fibrinogen dRVVT Confirm Interp Factor V Activity POC ABG pH POC ABG pCO2 POC ABG pO2 ABG pO2 ABG HCO3 ABG Hemoglobin Oxyhemoglobin Sodium Potassium Chloride 97.0 L Carbon Dioxide 19 L BUN 43 H Creatinine 2.6 H Glucose 130 H POC Glucose Lactic Acid 4.40 H* Calcium 6.7 L Phosphorus Magnesium Direct Bilirubin AST ALT Alkaline Phosphatase Lactate Dehydrogenase Troponin T C-Reactive Protein Total Protein Albumin Prealbumin Triglycerides Cholesterol LDL Cholesterol Direct HDL Cholesterol Urine pH Urine WBC (Auto) Urine Creatinine Urine Total Protein Fluid Total Protein Vancomycin Trough Rheumatoid Factor Complement C4 Miscellaneous Test Crossmatch 09/26/16 09/26/16 09/26/16 05:20 11:44 12:12 WBC RBC Hgb Hct MCV MCH MCHC RDW Plt Count Lymph % (Auto) [place] % (Auto) Lymph # [place] # Baso # Seg Neutrophils % Seg Neuts % (Manual) Lymphocytes % (Manual) Monocytes % (Manual) Eosinophils % (Manual) Basophils % (Manual) Nucleated RBC % Seg Neutrophils # Seg Neutrophils # Man Lymphocytes # (Manual) Monocytes # (Manual) Eosinophils # (Manual) PT INR Fibrinogen dRVVT Confirm Interp Factor V Activity POC ABG pH POC ABG pCO2 27.0 L POC ABG pO2 69 L ABG pO2 ABG HCO3 ABG Hemoglobin Oxyhemoglobin Sodium Potassium Chloride Carbon Dioxide BUN Creatinine Glucose POC Glucose 121 H 128 H Lactic Acid Calcium Phosphorus Magnesium Direct Bilirubin AST ALT Alkaline Phosphatase Lactate Dehydrogenase Troponin T C-Reactive Protein Total Protein Albumin Prealbumin Triglycerides Cholesterol LDL Cholesterol Direct HDL Cholesterol Urine pH Urine WBC (Auto) Urine Creatinine Urine Total Protein Fluid Total Protein Vancomycin Trough Rheumatoid Factor Complement C4 Miscellaneous Test Crossmatch 09/26/16 09/26/16 09/27/16 18:31 23:40 08:20 WBC RBC Hgb Hct MCV MCH MCHC RDW Plt Count Lymph % (Auto) [place] % (Auto) Lymph # [place] # Baso # Seg Neutrophils % Seg Neuts % (Manual) Lymphocytes % (Manual) Monocytes % (Manual) Eosinophils % (Manual) Basophils % (Manual) Nucleated RBC % Seg Neutrophils # Seg Neutrophils # Man Lymphocytes # (Manual) Monocytes # (Manual) Eosinophils # (Manual) PT INR Fibrinogen dRVVT Confirm Interp Factor V Activity POC ABG pH POC ABG pCO2 POC ABG pO2 ABG pO2 ABG HCO3 ABG Hemoglobin Oxyhemoglobin Sodium Potassium Chloride Carbon Dioxide BUN Creatinine Glucose POC Glucose 120 H 133 H Lactic Acid 4.10 H* Calcium Phosphorus Magnesium Direct Bilirubin AST ALT Alkaline Phosphatase Lactate Dehydrogenase Troponin T C-Reactive Protein Total Protein Albumin Prealbumin Triglycerides Cholesterol LDL Cholesterol Direct HDL Cholesterol Urine pH Urine WBC (Auto) Urine Creatinine Urine Total Protein Fluid Total Protein Vancomycin Trough Rheumatoid Factor Complement C4 Miscellaneous Test Crossmatch 09/27/16 09/27/16 09/27/16 11:23 15:00 18:15 WBC RBC Hgb Hct MCV MCH MCHC RDW Plt Count Lymph % (Auto) [place] % (Auto) Lymph # [place] # Baso # Seg Neutrophils % Seg Neuts % (Manual) Lymphocytes % (Manual) Monocytes % (Manual) Eosinophils % (Manual) Basophils % (Manual) Nucleated RBC % Seg Neutrophils # Seg Neutrophils # Man Lymphocytes # (Manual) Monocytes # (Manual) Eosinophils # (Manual) PT INR Fibrinogen dRVVT Confirm Interp Factor V Activity POC ABG pH 7.459 H POC ABG pCO2 27.1 L POC ABG pO2 140 H ABG pO2 ABG HCO3 ABG Hemoglobin Oxyhemoglobin Sodium Potassium Chloride Carbon Dioxide BUN Creatinine Glucose POC Glucose 114 H 127 H Lactic Acid Calcium Phosphorus Magnesium Direct Bilirubin AST ALT Alkaline Phosphatase Lactate Dehydrogenase Troponin T C-Reactive Protein Total Protein Albumin Prealbumin Triglycerides Cholesterol LDL Cholesterol Direct HDL Cholesterol Urine pH Urine WBC (Auto) Urine Creatinine Urine Total Protein Fluid Total Protein Vancomycin Trough Rheumatoid Factor Complement C4 Miscellaneous Test Crossmatch 09/27/16 09/27/16 09/28/16 Unknown Unknown 03:45 WBC RBC 2.49 L Hgb 6.8 L Hct 20.7 L MCV MCH 27 L MCHC RDW 22.1 H Plt Count Lymph % (Auto) [place] % (Auto) Lymph # [place] # Baso # Seg Neutrophils % Seg Neuts % (Manual) 32.0 L Lymphocytes % (Manual) 12.0 L Monocytes % (Manual) 11.0 H Eosinophils % (Manual) 10.0 H Basophils % (Manual) Nucleated RBC % Seg Neutrophils # Seg Neutrophils # Man Lymphocytes # (Manual) 1.0 L Monocytes # (Manual) 0.9 H Eosinophils # (Manual) 0.8 H PT INR Fibrinogen dRVVT Confirm Interp Factor V Activity POC ABG pH POC ABG pCO2 POC ABG pO2 ABG pO2 ABG HCO3 ABG Hemoglobin Oxyhemoglobin Sodium 135 L 135 L Potassium 3.5 L Chloride 93.6 L 94.4 L Carbon Dioxide 17 L 21 L BUN 45 H 28 H Creatinine 3.3 H 2.5 H Glucose 106 H POC Glucose Lactic Acid Calcium 7.3 L 7.1 L Phosphorus Magnesium Direct Bilirubin AST ALT Alkaline Phosphatase Lactate Dehydrogenase Troponin T C-Reactive Protein Total Protein Albumin Prealbumin Triglycerides Cholesterol LDL Cholesterol Direct HDL Cholesterol Urine pH Urine WBC (Auto) Urine Creatinine Urine Total Protein Fluid Total Protein Vancomycin Trough Rheumatoid Factor Complement C4 Miscellaneous Test Crossmatch 09/28/16 09/28/16 09/28/16 03:45 07:25 11:58 WBC 13.3 H RBC 3.01 L Hgb 8.4 L Hct 25.0 L MCV MCH MCHC RDW 20.5 H Plt Count 128 L Lymph % (Auto) [place] % (Auto) Lymph # [place] # Baso # Seg Neutrophils % Seg Neuts % (Manual) Lymphocytes % (Manual) 7.0 L Monocytes % (Manual) Eosinophils % (Manual) 6.0 H Basophils % (Manual) Nucleated RBC % Seg Neutrophils # Seg Neutrophils # Man Lymphocytes # (Manual) 0.9 L Monocytes # (Manual) Eosinophils # (Manual) 0.8 H PT INR Fibrinogen dRVVT Confirm Interp Factor V Activity POC ABG pH POC ABG pCO2 POC ABG pO2 ABG pO2 ABG HCO3 ABG Hemoglobin Oxyhemoglobin Sodium Potassium Chloride Carbon Dioxide BUN Creatinine Glucose POC Glucose 121 H Lactic Acid 4.50 H* Calcium Phosphorus Magnesium Direct Bilirubin AST ALT Alkaline Phosphatase Lactate Dehydrogenase Troponin T C-Reactive Protein Total Protein Albumin Prealbumin Triglycerides Cholesterol LDL Cholesterol Direct HDL Cholesterol Urine pH Urine WBC (Auto) Urine Creatinine Urine Total Protein Fluid Total Protein Vancomycin Trough Rheumatoid Factor Complement C4 Miscellaneous Test Crossmatch 09/29/16 09/29/16 09/29/16 06:45 06:45 06:45 WBC 14.9 H RBC 2.74 L Hgb 7.6 L Hct 23.2 L MCV MCH MCHC RDW 20.5 H Plt Count 81 L Lymph % (Auto) [place] % (Auto) Lymph # [place] # Baso # Seg Neutrophils % Seg Neuts % (Manual) 81.0 H Lymphocytes % (Manual) 4.0 L Monocytes % (Manual) Eosinophils % (Manual) Basophils % (Manual) Nucleated RBC % Seg Neutrophils # Seg Neutrophils # Man 12.1 H Lymphocytes # (Manual) 0.6 L Monocytes # (Manual) Eosinophils # (Manual) PT INR Fibrinogen dRVVT Confirm Interp Factor V Activity POC ABG pH POC ABG pCO2 POC ABG pO2 ABG pO2 ABG HCO3 ABG Hemoglobin Oxyhemoglobin Sodium 133 L Potassium 3.4 L Chloride 92.5 L Carbon Dioxide 21 L BUN 33 H Creatinine 3.0 H Glucose POC Glucose Lactic Acid Calcium 6.6 L Phosphorus Magnesium 1.40 L Direct Bilirubin 0.9 H AST ALT Alkaline Phosphatase Lactate Dehydrogenase Troponin T C-Reactive Protein Total Protein 4.3 L Albumin 1.3 L Prealbumin Triglycerides Cholesterol LDL Cholesterol Direct HDL Cholesterol Urine pH Urine WBC (Auto) Urine Creatinine Urine Total Protein Fluid Total Protein Vancomycin Trough Rheumatoid Factor Complement C4 Miscellaneous Test Crossmatch 09/29/16 09/29/16 09/30/16 17:52 20:12 00:07 WBC RBC Hgb Hct MCV MCH MCHC RDW Plt Count Lymph % (Auto) [place] % (Auto) Lymph # [place] # Baso # Seg Neutrophils % Seg Neuts % (Manual) Lymphocytes % (Manual) Monocytes % (Manual) Eosinophils % (Manual) Basophils % (Manual) Nucleated RBC % Seg Neutrophils # Seg Neutrophils # Man Lymphocytes # (Manual) Monocytes # (Manual) Eosinophils # (Manual) PT INR Fibrinogen dRVVT Confirm Interp Factor V Activity POC ABG pH POC ABG pCO2 POC ABG pO2 ABG pO2 ABG HCO3 ABG Hemoglobin Oxyhemoglobin Sodium Potassium Chloride Carbon Dioxide BUN Creatinine Glucose POC Glucose 50 L 51 L Lactic Acid Calcium Phosphorus Magnesium Direct Bilirubin AST ALT Alkaline Phosphatase Lactate Dehydrogenase Troponin T 0.204 H* C-Reactive Protein Total Protein Albumin Prealbumin Triglycerides Cholesterol 31 L LDL Cholesterol Direct 4 L HDL Cholesterol 3 L Urine pH Urine WBC (Auto) Urine Creatinine Urine Total Protein Fluid Total Protein Vancomycin Trough Rheumatoid Factor Complement C4 Miscellaneous Test Crossmatch 09/30/16 09/30/16 09/30/16 01:30 05:15 06:10 WBC RBC Hgb Hct MCV MCH MCHC RDW Plt Count Lymph % (Auto) [place] % (Auto) Lymph # [place] # Baso # Seg Neutrophils % Seg Neuts % (Manual) Lymphocytes % (Manual) Monocytes % (Manual) Eosinophils % (Manual) Basophils % (Manual) Nucleated RBC % Seg Neutrophils # Seg Neutrophils # Man Lymphocytes # (Manual) Monocytes # (Manual) Eosinophils # (Manual) PT INR Fibrinogen dRVVT Confirm Interp Factor V Activity POC ABG pH POC ABG pCO2 POC ABG pO2 ABG pO2 ABG HCO3 ABG Hemoglobin Oxyhemoglobin Sodium 133 L Potassium 3.2 L Chloride 93.2 L Carbon Dioxide 19 L BUN 36 H Creatinine 3.2 H Glucose 104 H POC Glucose 167 H 146 H Lactic Acid Calcium 6.4 L Phosphorus Magnesium 1.60 L Direct Bilirubin AST ALT Alkaline Phosphatase Lactate Dehydrogenase Troponin T C-Reactive Protein Total Protein Albumin Prealbumin Triglycerides Cholesterol LDL Cholesterol Direct HDL Cholesterol Urine pH Urine WBC (Auto) Urine Creatinine Urine Total Protein Fluid Total Protein Vancomycin Trough Rheumatoid Factor Complement C4 Miscellaneous Test Crossmatch 09/30/16 09/30/16 09/30/16 11:26 13:39 18:38 WBC RBC Hgb Hct MCV MCH MCHC RDW Plt Count Lymph % (Auto) [place] % (Auto) Lymph # [place] # Baso # Seg Neutrophils % Seg Neuts % (Manual) Lymphocytes % (Manual) Monocytes % (Manual) Eosinophils % (Manual) Basophils % (Manual) Nucleated RBC % Seg Neutrophils # Seg Neutrophils # Man Lymphocytes # (Manual) Monocytes # (Manual) Eosinophils # (Manual) PT INR Fibrinogen dRVVT Confirm Interp Factor V Activity POC ABG pH 7.479 H POC ABG pCO2 29.8 L POC ABG pO2 117 H ABG pO2 ABG HCO3 ABG Hemoglobin Oxyhemoglobin Sodium Potassium Chloride Carbon Dioxide BUN Creatinine Glucose POC Glucose 140 H 122 H Lactic Acid Calcium Phosphorus Magnesium Direct Bilirubin AST ALT Alkaline Phosphatase Lactate Dehydrogenase Troponin T C-Reactive Protein Total Protein Albumin Prealbumin Triglycerides Cholesterol LDL Cholesterol Direct HDL Cholesterol Urine pH Urine WBC (Auto) Urine Creatinine Urine Total Protein Fluid Total Protein Vancomycin Trough Rheumatoid Factor Complement C4 Miscellaneous Test Crossmatch 10/01/16 10/01/16 10/01/16 06:00 06:00 12:37 WBC 12.6 H RBC 2.75 L Hgb 7.3 L Hct 23.3 L MCV MCH 27 L MCHC RDW 20.6 H Plt Count 72 L Lymph % (Auto) [place] % (Auto) Lymph # [place] # Baso # Seg Neutrophils % Seg Neuts % (Manual) 31.0 L Lymphocytes % (Manual) 8.0 L Monocytes % (Manual) Eosinophils % (Manual) Basophils % (Manual) Nucleated RBC % 3.0 H Seg Neutrophils # Seg Neutrophils # Man Lymphocytes # (Manual) 1.0 L Monocytes # (Manual) Eosinophils # (Manual) PT INR Fibrinogen dRVVT Confirm Interp Factor V Activity POC ABG pH POC ABG pCO2 POC ABG pO2 ABG pO2 ABG HCO3 ABG Hemoglobin Oxyhemoglobin Sodium 127 L Potassium Chloride 86.8 L Carbon Dioxide 20 L BUN 42 H Creatinine 3.5 H Glucose POC Glucose 65 L Lactic Acid Calcium 7.0 L Phosphorus Magnesium Direct Bilirubin AST ALT Alkaline Phosphatase Lactate Dehydrogenase Troponin T C-Reactive Protein Total Protein Albumin Prealbumin Triglycerides Cholesterol LDL Cholesterol Direct HDL Cholesterol Urine pH Urine WBC (Auto) Urine Creatinine Urine Total Protein Fluid Total Protein Vancomycin Trough Rheumatoid Factor Complement C4 Miscellaneous Test Crossmatch 10/01/16 10/01/16 10/02/16 17:39 23:32 00:59 WBC RBC Hgb Hct MCV MCH MCHC RDW Plt Count Lymph % (Auto) [place] % (Auto) Lymph # [place] # Baso # Seg Neutrophils % Seg Neuts % (Manual) Lymphocytes % (Manual) Monocytes % (Manual) Eosinophils % (Manual) Basophils % (Manual) Nucleated RBC % Seg Neutrophils # Seg Neutrophils # Man Lymphocytes # (Manual) Monocytes # (Manual) Eosinophils # (Manual) PT INR Fibrinogen dRVVT Confirm Interp Factor V Activity POC ABG pH POC ABG pCO2 POC ABG pO2 ABG pO2 ABG HCO3 ABG Hemoglobin Oxyhemoglobin Sodium Potassium Chloride Carbon Dioxide BUN Creatinine Glucose POC Glucose 107 H 52 L 145 H Lactic Acid Calcium Phosphorus Magnesium Direct Bilirubin AST ALT Alkaline Phosphatase Lactate Dehydrogenase Troponin T C-Reactive Protein Total Protein Albumin Prealbumin Triglycerides Cholesterol LDL Cholesterol Direct HDL Cholesterol Urine pH Urine WBC (Auto) Urine Creatinine Urine Total Protein Fluid Total Protein Vancomycin Trough Rheumatoid Factor Complement C4 Miscellaneous Test Crossmatch 10/02/16 10/02/16 10/02/16 10:30 10:50 10:50 WBC 14.7 H RBC 2.76 L Hgb 7.4 L Hct 23.6 L MCV MCH 27 L MCHC RDW 20.2 H Plt Count 79 L Lymph % (Auto) [place] % (Auto) Lymph # [place] # Baso # Seg Neutrophils % Seg Neuts % (Manual) 86.0 H Lymphocytes % (Manual) 6.0 L Monocytes % (Manual) Eosinophils % (Manual) Basophils % (Manual) Nucleated RBC % Seg Neutrophils # Seg Neutrophils # Man 12.6 H Lymphocytes # (Manual) 0.9 L Monocytes # (Manual) Eosinophils # (Manual) PT INR Fibrinogen dRVVT Confirm Interp Factor V Activity POC ABG pH 7.486 H POC ABG pCO2 30.1 L POC ABG pO2 108 H ABG pO2 ABG HCO3 ABG Hemoglobin Oxyhemoglobin Sodium 131 L Potassium 3.4 L Chloride 89.9 L Carbon Dioxide BUN 26 H Creatinine 2.6 H Glucose POC Glucose Lactic Acid Calcium 7.0 L Phosphorus Magnesium Direct Bilirubin AST ALT Alkaline Phosphatase Lactate Dehydrogenase Troponin T C-Reactive Protein Total Protein Albumin Prealbumin Triglycerides Cholesterol LDL Cholesterol Direct HDL Cholesterol Urine pH Urine WBC (Auto) Urine Creatinine Urine Total Protein Fluid Total Protein Vancomycin Trough Rheumatoid Factor Complement C4 Miscellaneous Test Crossmatch 10/02/16 10/03/16 10/03/16 23:45 00:45 05:10 WBC 12.9 H RBC 2.77 L Hgb 7.6 L Hct 23.7 L MCV MCH 27 L MCHC RDW 19.7 H Plt Count 89 L Lymph % (Auto) [place] % (Auto) Lymph # [place] # Baso # Seg Neutrophils % Seg Neuts % (Manual) Lymphocytes % (Manual) 8.0 L Monocytes % (Manual) Eosinophils % (Manual) Basophils % (Manual) Nucleated RBC % Seg Neutrophils # 11.9 H Seg Neutrophils # Man Lymphocytes # (Manual) 1.0 L Monocytes # (Manual) Eosinophils # (Manual) PT INR Fibrinogen dRVVT Confirm Interp Factor V Activity POC ABG pH POC ABG pCO2 POC ABG pO2 ABG pO2 ABG HCO3 ABG Hemoglobin Oxyhemoglobin Sodium Potassium Chloride Carbon Dioxide BUN Creatinine Glucose POC Glucose 55 L 199 H Lactic Acid Calcium Phosphorus Magnesium Direct Bilirubin AST ALT Alkaline Phosphatase Lactate Dehydrogenase Troponin T C-Reactive Protein Total Protein Albumin Prealbumin Triglycerides Cholesterol LDL Cholesterol Direct HDL Cholesterol Urine pH Urine WBC (Auto) Urine Creatinine Urine Total Protein Fluid Total Protein Vancomycin Trough Rheumatoid Factor Complement C4 Miscellaneous Test Crossmatch 10/03/16 10/03/16 10/03/16 05:10 12:14 13:18 WBC RBC Hgb Hct MCV MCH MCHC RDW Plt Count Lymph % (Auto) [place] % (Auto) Lymph # [place] # Baso # Seg Neutrophils % Seg Neuts % (Manual) Lymphocytes % (Manual) Monocytes % (Manual) Eosinophils % (Manual) Basophils % (Manual) Nucleated RBC % Seg Neutrophils # Seg Neutrophils # Man Lymphocytes # (Manual) Monocytes # (Manual) Eosinophils # (Manual) PT INR Fibrinogen dRVVT Confirm Interp Factor V Activity POC ABG pH POC ABG pCO2 POC ABG pO2 ABG pO2 ABG HCO3 ABG Hemoglobin Oxyhemoglobin Sodium 129 L Potassium 3.3 L Chloride 88.8 L Carbon Dioxide 20 L BUN 29 H Creatinine 2.8 H Glucose POC Glucose 68 L 127 H Lactic Acid Calcium 7.2 L Phosphorus Magnesium Direct Bilirubin AST ALT Alkaline Phosphatase Lactate Dehydrogenase Troponin T C-Reactive Protein Total Protein Albumin Prealbumin Triglycerides Cholesterol LDL Cholesterol Direct HDL Cholesterol Urine pH Urine WBC (Auto) Urine Creatinine Urine Total Protein Fluid Total Protein Vancomycin Trough Rheumatoid Factor Complement C4 Miscellaneous Test Crossmatch 10/03/16 10/03/16 10/03/16 14:42 18:21 19:09 WBC RBC Hgb Hct MCV MCH MCHC RDW Plt Count Lymph % (Auto) [place] % (Auto) Lymph # [place] # Baso # Seg Neutrophils % Seg Neuts % (Manual) Lymphocytes % (Manual) Monocytes % (Manual) Eosinophils % (Manual) Basophils % (Manual) Nucleated RBC % Seg Neutrophils # Seg Neutrophils # Man Lymphocytes # (Manual) Monocytes # (Manual) Eosinophils # (Manual) PT INR Fibrinogen dRVVT Confirm Interp Factor V Activity POC ABG pH 7.499 H POC ABG pCO2 28.4 L POC ABG pO2 44 L ABG pO2 ABG HCO3 ABG Hemoglobin Oxyhemoglobin Sodium Potassium Chloride Carbon Dioxide BUN Creatinine Glucose POC Glucose 64 L 205 H Lactic Acid Calcium Phosphorus Magnesium Direct Bilirubin AST ALT Alkaline Phosphatase Lactate Dehydrogenase Troponin T C-Reactive Protein Total Protein Albumin Prealbumin Triglycerides Cholesterol LDL Cholesterol Direct HDL Cholesterol Urine pH Urine WBC (Auto) Urine Creatinine Urine Total Protein Fluid Total Protein Vancomycin Trough Rheumatoid Factor Complement C4 Miscellaneous Test Crossmatch 10/03/16 10/04/16 10/04/16 23:33 04:18 06:30 WBC RBC 2.54 L Hgb 7.1 L Hct 21.7 L MCV MCH MCHC RDW 19.5 H Plt Count 76 L Lymph % (Auto) [place] % (Auto) Lymph # [place] # Baso # Seg Neutrophils % Seg Neuts % (Manual) 88.0 H Lymphocytes % (Manual) 6.0 L Monocytes % (Manual) Eosinophils % (Manual) Basophils % (Manual) Nucleated RBC % Seg Neutrophils # Seg Neutrophils # Man 8.8 H Lymphocytes # (Manual) 0.6 L Monocytes # (Manual) Eosinophils # (Manual) PT INR Fibrinogen dRVVT Confirm Interp Factor V Activity POC ABG pH 7.461 H POC ABG pCO2 33.6 L POC ABG pO2 211 H ABG pO2 ABG HCO3 ABG Hemoglobin Oxyhemoglobin Sodium Potassium Chloride Carbon Dioxide BUN Creatinine Glucose POC Glucose 136 H Lactic Acid Calcium Phosphorus Magnesium Direct Bilirubin AST ALT Alkaline Phosphatase Lactate Dehydrogenase Troponin T C-Reactive Protein Total Protein Albumin Prealbumin Triglycerides Cholesterol LDL Cholesterol Direct HDL Cholesterol Urine pH Urine WBC (Auto) Urine Creatinine Urine Total Protein Fluid Total Protein Vancomycin Trough Rheumatoid Factor Complement C4 Miscellaneous Test Crossmatch 10/04/16 10/04/16 10/04/16 06:30 11:45 17:54 WBC RBC Hgb Hct MCV MCH MCHC RDW Plt Count Lymph % (Auto) [place] % (Auto) Lymph # [place] # Baso # Seg Neutrophils % Seg Neuts % (Manual) Lymphocytes % (Manual) Monocytes % (Manual) Eosinophils % (Manual) Basophils % (Manual) Nucleated RBC % Seg Neutrophils # Seg Neutrophils # Man Lymphocytes # (Manual) Monocytes # (Manual) Eosinophils # (Manual) PT INR Fibrinogen dRVVT Confirm Interp Factor V Activity POC ABG pH POC ABG pCO2 POC ABG pO2 ABG pO2 ABG HCO3 ABG Hemoglobin Oxyhemoglobin Sodium 128 L Potassium Chloride 87.4 L Carbon Dioxide 20 L BUN 34 H Creatinine 2.9 H Glucose 127 H POC Glucose 158 H 160 H Lactic Acid Calcium 7.4 L Phosphorus Magnesium Direct Bilirubin AST ALT Alkaline Phosphatase Lactate Dehydrogenase Troponin T C-Reactive Protein Total Protein Albumin Prealbumin Triglycerides Cholesterol LDL Cholesterol Direct HDL Cholesterol Urine pH Urine WBC (Auto) Urine Creatinine Urine Total Protein Fluid Total Protein Vancomycin Trough Rheumatoid Factor Complement C4 Miscellaneous Test Crossmatch 10/04/16 10/05/16 10/05/16 23:25 04:30 05:00 WBC RBC 2.64 L Hgb 7.5 L Hct 22.6 L MCV MCH MCHC RDW 19.3 H Plt Count 80 L Lymph % (Auto) [place] % (Auto) Lymph # [place] # Baso # Seg Neutrophils % Seg Neuts % (Manual) Lymphocytes % (Manual) 12.0 L Monocytes % (Manual) Eosinophils % (Manual) Basophils % (Manual) Nucleated RBC % Seg Neutrophils # Seg Neutrophils # Man Lymphocytes # (Manual) Monocytes # (Manual) Eosinophils # (Manual) PT INR Fibrinogen dRVVT Confirm Interp Factor V Activity POC ABG pH 7.475 H POC ABG pCO2 33.3 L POC ABG pO2 140 H ABG pO2 ABG HCO3 ABG Hemoglobin Oxyhemoglobin Sodium Potassium Chloride Carbon Dioxide BUN Creatinine Glucose POC Glucose 141 H Lactic Acid Calcium Phosphorus Magnesium Direct Bilirubin AST ALT Alkaline Phosphatase Lactate Dehydrogenase Troponin T C-Reactive Protein Total Protein Albumin Prealbumin Triglycerides Cholesterol LDL Cholesterol Direct HDL Cholesterol Urine pH Urine WBC (Auto) Urine Creatinine Urine Total Protein Fluid Total Protein Vancomycin Trough Rheumatoid Factor Complement C4 Miscellaneous Test Crossmatch 10/05/16 10/05/16 10/05/16 05:00 05:09 12:58 WBC RBC Hgb Hct MCV MCH MCHC RDW Plt Count Lymph % (Auto) [place] % (Auto) Lymph # [place] # Baso # Seg Neutrophils % Seg Neuts % (Manual) Lymphocytes % (Manual) Monocytes % (Manual) Eosinophils % (Manual) Basophils % (Manual) Nucleated RBC % Seg Neutrophils # Seg Neutrophils # Man Lymphocytes # (Manual) Monocytes # (Manual) Eosinophils # (Manual) PT INR Fibrinogen dRVVT Confirm Interp Factor V Activity POC ABG pH POC ABG pCO2 POC ABG pO2 ABG pO2 ABG HCO3 ABG Hemoglobin Oxyhemoglobin Sodium 131 L Potassium Chloride 94.0 L Carbon Dioxide 20 L BUN 22 H Creatinine 2.0 H Glucose 123 H POC Glucose 166 H 179 H Lactic Acid Calcium 7.7 L Phosphorus 2.20 L D Magnesium Direct Bilirubin AST ALT Alkaline Phosphatase Lactate Dehydrogenase Troponin T C-Reactive Protein Total Protein Albumin Prealbumin Triglycerides Cholesterol LDL Cholesterol Direct HDL Cholesterol Urine pH Urine WBC (Auto) Urine Creatinine Urine Total Protein Fluid Total Protein Vancomycin Trough Rheumatoid Factor Complement C4 Miscellaneous Test Crossmatch 10/05/16 10/05/16 10/05/16 15:50 18:53 23:12 WBC RBC Hgb Hct MCV MCH MCHC RDW Plt Count Lymph % (Auto) [place] % (Auto) Lymph # [place] # Baso # Seg Neutrophils % Seg Neuts % (Manual) Lymphocytes % (Manual) Monocytes % (Manual) Eosinophils % (Manual) Basophils % (Manual) Nucleated RBC % Seg Neutrophils # Seg Neutrophils # Man Lymphocytes # (Manual) Monocytes # (Manual) Eosinophils # (Manual) PT INR Fibrinogen dRVVT Confirm Interp Factor V Activity POC ABG pH POC ABG pCO2 POC ABG pO2 ABG pO2 ABG HCO3 ABG Hemoglobin Oxyhemoglobin Sodium Potassium Chloride Carbon Dioxide BUN Creatinine Glucose POC Glucose 150 H 164 H Lactic Acid Calcium Phosphorus Magnesium Direct Bilirubin AST ALT Alkaline Phosphatase Lactate Dehydrogenase Troponin T C-Reactive Protein Total Protein Albumin Prealbumin Triglycerides Cholesterol LDL Cholesterol Direct HDL Cholesterol Urine pH Urine WBC (Auto) Urine Creatinine Urine Total Protein Fluid Total Protein Vancomycin Trough Rheumatoid Factor Complement C4 Miscellaneous Test Crossmatch See Detail 10/06/16 10/06/16 10/06/16 03:50 03:50 04:53 WBC RBC 3.00 L Hgb 8.6 L Hct 25.8 L MCV MCH MCHC RDW 17.9 H Plt Count 65 L Lymph % (Auto) [place] % (Auto) Lymph # [place] # Baso # Seg Neutrophils % Seg Neuts % (Manual) 30.0 L Lymphocytes % (Manual) 5.0 L Monocytes % (Manual) Eosinophils % (Manual) Basophils % (Manual) Nucleated RBC % Seg Neutrophils # Seg Neutrophils # Man Lymphocytes # (Manual) 0.4 L Monocytes # (Manual) Eosinophils # (Manual) PT INR Fibrinogen dRVVT Confirm Interp Factor V Activity POC ABG pH 7.310 L POC ABG pCO2 49.0 H POC ABG pO2 ABG pO2 ABG HCO3 ABG Hemoglobin Oxyhemoglobin Sodium 133 L Potassium Chloride 95.9 L Carbon Dioxide BUN 26 H Creatinine 2.0 H Glucose 116 H POC Glucose Lactic Acid Calcium 7.8 L Phosphorus Magnesium Direct Bilirubin AST ALT Alkaline Phosphatase Lactate Dehydrogenase Troponin T C-Reactive Protein Total Protein Albumin Prealbumin Triglycerides Cholesterol LDL Cholesterol Direct HDL Cholesterol Urine pH Urine WBC (Auto) Urine Creatinine Urine Total Protein Fluid Total Protein Vancomycin Trough Rheumatoid Factor Complement C4 Miscellaneous Test Crossmatch 10/06/16 10/06/16 10/06/16 05:23 11:52 18:34 WBC RBC Hgb Hct MCV MCH MCHC RDW Plt Count Lymph % (Auto) [place] % (Auto) Lymph # [place] # Baso # Seg Neutrophils % Seg Neuts % (Manual) Lymphocytes % (Manual) Monocytes % (Manual) Eosinophils % (Manual) Basophils % (Manual) Nucleated RBC % Seg Neutrophils # Seg Neutrophils # Man Lymphocytes # (Manual) Monocytes # (Manual) Eosinophils # (Manual) PT INR Fibrinogen dRVVT Confirm Interp Factor V Activity POC ABG pH POC ABG pCO2 POC ABG pO2 ABG pO2 ABG HCO3 ABG Hemoglobin Oxyhemoglobin Sodium Potassium Chloride Carbon Dioxide BUN Creatinine Glucose POC Glucose 126 H 116 H 129 H Lactic Acid Calcium Phosphorus Magnesium Direct Bilirubin AST ALT Alkaline Phosphatase Lactate Dehydrogenase Troponin T C-Reactive Protein Total Protein Albumin Prealbumin Triglycerides Cholesterol LDL Cholesterol Direct HDL Cholesterol Urine pH Urine WBC (Auto) Urine Creatinine Urine Total Protein Fluid Total Protein Vancomycin Trough Rheumatoid Factor Complement C4 Miscellaneous Test Crossmatch 10/07/16 10/07/16 10/07/16 03:45 05:00 10:00 WBC 17.0 H RBC 2.68 L Hgb 7.3 L Hct 25.3 L MCV MCH 27 L MCHC 29 L RDW 19.6 H Plt Count 74 L Lymph % (Auto) [place] % (Auto) Lymph # [place] # Baso # Seg Neutrophils % Seg Neuts % (Manual) Lymphocytes % (Manual) 12.0 L Monocytes % (Manual) Eosinophils % (Manual) Basophils % (Manual) Nucleated RBC % 4.0 H Seg Neutrophils # Seg Neutrophils # Man 10.7 H Lymphocytes # (Manual) Monocytes # (Manual) Eosinophils # (Manual) PT INR Fibrinogen dRVVT Confirm Interp Factor V Activity POC ABG pH POC ABG pCO2 POC ABG pO2 ABG pO2 ABG HCO3 ABG Hemoglobin Oxyhemoglobin Sodium 130 L Potassium 3.2 L Chloride 93.9 L Carbon Dioxide 20 L BUN 44 H Creatinine 2.7 H Glucose 129 H POC Glucose Lactic Acid Calcium 7.4 L Phosphorus Magnesium Direct Bilirubin AST ALT 6 L Alkaline Phosphatase 195 H Lactate Dehydrogenase Troponin T C-Reactive Protein Total Protein 4.9 L Albumin 1.0 L Prealbumin Triglycerides Cholesterol LDL Cholesterol Direct HDL Cholesterol Urine pH Urine WBC (Auto) Urine Creatinine Urine Total Protein Fluid Total Protein Vancomycin Trough Rheumatoid Factor Complement C4 Miscellaneous Test Flexitest 1 H Crossmatch 10/07/16 10/07/16 10/07/16 10:00 11:24 18:10 WBC RBC Hgb Hct MCV MCH MCHC RDW Plt Count Lymph % (Auto) [place] % (Auto) Lymph # [place] # Baso # Seg Neutrophils % Seg Neuts % (Manual) Lymphocytes % (Manual) Monocytes % (Manual) Eosinophils % (Manual) Basophils % (Manual) Nucleated RBC % Seg Neutrophils # Seg Neutrophils # Man Lymphocytes # (Manual) Monocytes # (Manual) Eosinophils # (Manual) PT INR Fibrinogen dRVVT Confirm Interp Factor V Activity POC ABG pH POC ABG pCO2 POC ABG pO2 ABG pO2 ABG HCO3 ABG Hemoglobin Oxyhemoglobin Sodium Potassium Chloride Carbon Dioxide BUN Creatinine Glucose POC Glucose 116 H 130 H Lactic Acid Calcium Phosphorus Magnesium Direct Bilirubin AST ALT Alkaline Phosphatase Lactate Dehydrogenase Troponin T C-Reactive Protein 19.40 H Total Protein Albumin Prealbumin Triglycerides Cholesterol LDL Cholesterol Direct HDL Cholesterol Urine pH Urine WBC (Auto) Urine Creatinine Urine Total Protein Fluid Total Protein Vancomycin Trough Rheumatoid Factor Complement C4 Miscellaneous Test Crossmatch 10/07/16 10/08/16 10/08/16 18:30 00:00 04:00 WBC RBC Hgb Hct MCV MCH MCHC RDW Plt Count Lymph % (Auto) [place] % (Auto) Lymph # [place] # Baso # Seg Neutrophils % Seg Neuts % (Manual) Lymphocytes % (Manual) Monocytes % (Manual) Eosinophils % (Manual) Basophils % (Manual) Nucleated RBC % Seg Neutrophils # Seg Neutrophils # Man Lymphocytes # (Manual) Monocytes # (Manual) Eosinophils # (Manual) PT INR Fibrinogen dRVVT Confirm Interp Factor V Activity POC ABG pH POC ABG pCO2 POC ABG pO2 ABG pO2 ABG HCO3 ABG Hemoglobin Oxyhemoglobin Sodium 132 L Potassium 3.3 L Chloride 93.6 L Carbon Dioxide 17 L BUN 59 H Creatinine 2.7 H Glucose 121 H POC Glucose 122 H Lactic Acid Calcium 7.6 L Phosphorus Magnesium Direct Bilirubin AST ALT Alkaline Phosphatase Lactate Dehydrogenase Troponin T C-Reactive Protein Total Protein Albumin Prealbumin Triglycerides Cholesterol LDL Cholesterol Direct HDL Cholesterol Urine pH Urine WBC (Auto) > 182.0 H Urine Creatinine Urine Total Protein Fluid Total Protein Vancomycin Trough Rheumatoid Factor Complement C4 Miscellaneous Test Crossmatch 10/08/16 10/08/16 10/08/16 04:30 05:30 11:51 WBC RBC 5.15 H Hgb 14.4 H D Hct 44.5 H D MCV MCH MCHC RDW 19.5 H Plt Count 56 L Lymph % (Auto) [place] % (Auto) Lymph # [place] # Baso # Seg Neutrophils % Seg Neuts % (Manual) 24.0 L Lymphocytes % (Manual) 8.0 L Monocytes % (Manual) Eosinophils % (Manual) Basophils % (Manual) Nucleated RBC % 9.0 H Seg Neutrophils # Seg Neutrophils # Man Lymphocytes # (Manual) 0.7 L Monocytes # (Manual) Eosinophils # (Manual) PT INR Fibrinogen dRVVT Confirm Interp Factor V Activity POC ABG pH POC ABG pCO2 POC ABG pO2 ABG pO2 ABG HCO3 ABG Hemoglobin Oxyhemoglobin Sodium Potassium Chloride Carbon Dioxide BUN Creatinine Glucose POC Glucose 125 H 150 H Lactic Acid Calcium Phosphorus Magnesium Direct Bilirubin AST ALT Alkaline Phosphatase Lactate Dehydrogenase Troponin T C-Reactive Protein Total Protein Albumin Prealbumin Triglycerides Cholesterol LDL Cholesterol Direct HDL Cholesterol Urine pH Urine WBC (Auto) Urine Creatinine Urine Total Protein Fluid Total Protein Vancomycin Trough Rheumatoid Factor Complement C4 Miscellaneous Test Crossmatch 10/08/16 10/08/16 10/08/16 12:49 17:07 19:30 WBC RBC Hgb 7.1 L D Hct 22.4 L D MCV MCH MCHC RDW Plt Count Lymph % (Auto) [place] % (Auto) Lymph # [place] # Baso # Seg Neutrophils % Seg Neuts % (Manual) Lymphocytes % (Manual) Monocytes % (Manual) Eosinophils % (Manual) Basophils % (Manual) Nucleated RBC % Seg Neutrophils # Seg Neutrophils # Man Lymphocytes # (Manual) Monocytes # (Manual) Eosinophils # (Manual) PT INR Fibrinogen dRVVT Confirm Interp Factor V Activity POC ABG pH POC ABG pCO2 28.2 L POC ABG pO2 111 H ABG pO2 ABG HCO3 ABG Hemoglobin Oxyhemoglobin Sodium Potassium Chloride Carbon Dioxide BUN Creatinine Glucose POC Glucose 145 H Lactic Acid Calcium Phosphorus Magnesium Direct Bilirubin AST ALT Alkaline Phosphatase Lactate Dehydrogenase Troponin T C-Reactive Protein Total Protein Albumin Prealbumin Triglycerides Cholesterol LDL Cholesterol Direct HDL Cholesterol Urine pH Urine WBC (Auto) Urine Creatinine Urine Total Protein Fluid Total Protein Vancomycin Trough Rheumatoid Factor Complement C4 Miscellaneous Test Crossmatch 10/08/16 10/09/16 10/09/16 19:30 03:45 03:45 WBC 12.6 H RBC 2.36 L Hgb 6.7 L Hct 21.1 L MCV MCH MCHC RDW 19.5 H Plt Count 75 L Lymph % (Auto) [place] % (Auto) Lymph # [place] # Baso # Seg Neutrophils % Seg Neuts % (Manual) Lymphocytes % (Manual) Monocytes % (Manual) 10.0 H Eosinophils % (Manual) Basophils % (Manual) Nucleated RBC % 3.0 H Seg Neutrophils # Seg Neutrophils # Man Lymphocytes # (Manual) Monocytes # (Manual) 1.3 H Eosinophils # (Manual) PT 18.0 H INR 1.41 H Fibrinogen dRVVT Confirm Interp Factor V Activity POC ABG pH POC ABG pCO2 POC ABG pO2 ABG pO2 ABG HCO3 ABG Hemoglobin Oxyhemoglobin Sodium 135 L Potassium Chloride Carbon Dioxide 17 L BUN 81 H Creatinine 3.2 H Glucose 109 H POC Glucose Lactic Acid Calcium 7.4 L Phosphorus 4.60 H D Magnesium Direct Bilirubin AST ALT Alkaline Phosphatase Lactate Dehydrogenase Troponin T C-Reactive Protein Total Protein Albumin Prealbumin Triglycerides Cholesterol LDL Cholesterol Direct HDL Cholesterol Urine pH Urine WBC (Auto) Urine Creatinine Urine Total Protein Fluid Total Protein Vancomycin Trough Rheumatoid Factor Complement C4 Miscellaneous Test Crossmatch 10/09/16 10/09/16 10/09/16 03:45 05:14 07:20 WBC RBC Hgb Hct MCV MCH MCHC RDW Plt Count Lymph % (Auto) [place] % (Auto) Lymph # [place] # Baso # Seg Neutrophils % Seg Neuts % (Manual) Lymphocytes % (Manual) Monocytes % (Manual) Eosinophils % (Manual) Basophils % (Manual) Nucleated RBC % Seg Neutrophils # Seg Neutrophils # Man Lymphocytes # (Manual) Monocytes # (Manual) Eosinophils # (Manual) PT 19.0 H INR 1.51 H Fibrinogen dRVVT Confirm Interp Factor V Activity POC ABG pH POC ABG pCO2 POC ABG pO2 ABG pO2 ABG HCO3 ABG Hemoglobin Oxyhemoglobin Sodium Potassium Chloride Carbon Dioxide BUN Creatinine Glucose POC Glucose 151 H Lactic Acid Calcium Phosphorus Magnesium Direct Bilirubin AST ALT Alkaline Phosphatase Lactate Dehydrogenase Troponin T C-Reactive Protein Total Protein Albumin Prealbumin Triglycerides Cholesterol LDL Cholesterol Direct HDL Cholesterol Urine pH Urine WBC (Auto) Urine Creatinine Urine Total Protein Fluid Total Protein Vancomycin Trough Rheumatoid Factor Complement C4 Miscellaneous Test Crossmatch See Detail 10/09/16 10/09/16 10/09/16 11:46 16:20 16:43 WBC RBC Hgb 7.2 L Hct 22.2 L MCV MCH MCHC RDW Plt Count Lymph % (Auto) [place] % (Auto) Lymph # [place] # Baso # Seg Neutrophils % Seg Neuts % (Manual) Lymphocytes % (Manual) Monocytes % (Manual) Eosinophils % (Manual) Basophils % (Manual) Nucleated RBC % Seg Neutrophils # Seg Neutrophils # Man Lymphocytes # (Manual) Monocytes # (Manual) Eosinophils # (Manual) PT INR Fibrinogen dRVVT Confirm Interp Factor V Activity POC ABG pH POC ABG pCO2 POC ABG pO2 ABG pO2 ABG HCO3 ABG Hemoglobin Oxyhemoglobin Sodium Potassium Chloride Carbon Dioxide BUN Creatinine Glucose POC Glucose 133 H 141 H Lactic Acid Calcium Phosphorus Magnesium Direct Bilirubin AST ALT Alkaline Phosphatase Lactate Dehydrogenase Troponin T C-Reactive Protein Total Protein Albumin Prealbumin Triglycerides Cholesterol LDL Cholesterol Direct HDL Cholesterol Urine pH Urine WBC (Auto) Urine Creatinine Urine Total Protein Fluid Total Protein Vancomycin Trough Rheumatoid Factor Complement C4 Miscellaneous Test Crossmatch 10/10/16 10/10/16 10/10/16 05:00 05:00 11:19 WBC 18.5 H RBC 2.19 L Hgb 6.4 L Hct 19.6 L* MCV MCH MCHC RDW 19.3 H Plt Count 93 L Lymph % (Auto) [place] % (Auto) Lymph # [place] # Baso # Seg Neutrophils % Seg Neuts % (Manual) Lymphocytes % (Manual) 10.0 L Monocytes % (Manual) Eosinophils % (Manual) Basophils % (Manual) Nucleated RBC % 4.0 H Seg Neutrophils # Seg Neutrophils # Man 11.3 H Lymphocytes # (Manual) Monocytes # (Manual) Eosinophils # (Manual) PT INR Fibrinogen dRVVT Confirm Interp Factor V Activity POC ABG pH POC ABG pCO2 POC ABG pO2 ABG pO2 ABG HCO3 ABG Hemoglobin Oxyhemoglobin Sodium Potassium 5.7 H D Chloride Carbon Dioxide 16 L BUN 94 H Creatinine 3.1 H Glucose 131 H POC Glucose 153 H Lactic Acid Calcium 8.2 L Phosphorus 5.10 H Magnesium 2.40 H Direct Bilirubin 0.3 H AST ALT < 5 L Alkaline Phosphatase 319 H Lactate Dehydrogenase Troponin T C-Reactive Protein Total Protein 5.1 L Albumin 1.0 L Prealbumin Triglycerides Cholesterol LDL Cholesterol Direct HDL Cholesterol Urine pH Urine WBC (Auto) Urine Creatinine Urine Total Protein Fluid Total Protein Vancomycin Trough Rheumatoid Factor Complement C4 Miscellaneous Test Crossmatch 10/10/16 10/10/16 10/11/16 17:50 23:30 04:15 WBC RBC Hgb Hct MCV MCH MCHC RDW Plt Count Lymph % (Auto) [place] % (Auto) Lymph # [place] # Baso # Seg Neutrophils % Seg Neuts % (Manual) Lymphocytes % (Manual) Monocytes % (Manual) Eosinophils % (Manual) Basophils % (Manual) Nucleated RBC % Seg Neutrophils # Seg Neutrophils # Man Lymphocytes # (Manual) Monocytes # (Manual) Eosinophils # (Manual) PT INR Fibrinogen dRVVT Confirm Interp Factor V Activity POC ABG pH POC ABG pCO2 POC ABG pO2 ABG pO2 ABG HCO3 ABG Hemoglobin Oxyhemoglobin Sodium Potassium Chloride 96.4 L Carbon Dioxide 21 L BUN 57 H Creatinine 2.1 H Glucose 151 H POC Glucose 146 H 141 H Lactic Acid Calcium 8.3 L Phosphorus Magnesium Direct Bilirubin AST ALT Alkaline Phosphatase Lactate Dehydrogenase Troponin T C-Reactive Protein Total Protein Albumin Prealbumin Triglycerides Cholesterol LDL Cholesterol Direct HDL Cholesterol Urine pH Urine WBC (Auto) Urine Creatinine Urine Total Protein Fluid Total Protein Vancomycin Trough Rheumatoid Factor Complement C4 Miscellaneous Test Crossmatch 10/11/16 10/11/16 10/11/16 04:15 04:15 05:30 WBC 28.3 H RBC 3.12 L Hgb 9.3 L Hct 28.7 L D MCV MCH MCHC RDW 17.7 H Plt Count 128 L Lymph % (Auto) [place] % (Auto) Lymph # [place] # Baso # Seg Neutrophils % Seg Neuts % (Manual) Lymphocytes % (Manual) Monocytes % (Manual) Eosinophils % (Manual) Basophils % (Manual) Nucleated RBC % Seg Neutrophils # Seg Neutrophils # Man Lymphocytes # (Manual) Monocytes # (Manual) Eosinophils # (Manual) PT INR Fibrinogen dRVVT Confirm Interp Factor V Activity POC ABG pH POC ABG pCO2 POC ABG pO2 ABG pO2 ABG HCO3 ABG Hemoglobin Oxyhemoglobin Sodium Potassium Chloride Carbon Dioxide BUN Creatinine Glucose POC Glucose 167 H Lactic Acid Calcium Phosphorus Magnesium Direct Bilirubin AST ALT Alkaline Phosphatase Lactate Dehydrogenase Troponin T C-Reactive Protein 15.80 H Total Protein Albumin Prealbumin Triglycerides Cholesterol LDL Cholesterol Direct HDL Cholesterol Urine pH Urine WBC (Auto) Urine Creatinine Urine Total Protein Fluid Total Protein Vancomycin Trough Rheumatoid Factor Complement C4 Miscellaneous Test Crossmatch 10/11/16 10/11/16 10/11/16 11:40 15:49 23:57 WBC RBC Hgb Hct MCV MCH MCHC RDW Plt Count Lymph % (Auto) [place] % (Auto) Lymph # [place] # Baso # Seg Neutrophils % Seg Neuts % (Manual) Lymphocytes % (Manual) Monocytes % (Manual) Eosinophils % (Manual) Basophils % (Manual) Nucleated RBC % Seg Neutrophils # Seg Neutrophils # Man Lymphocytes # (Manual) Monocytes # (Manual) Eosinophils # (Manual) PT INR Fibrinogen dRVVT Confirm Interp Factor V Activity POC ABG pH POC ABG pCO2 POC ABG pO2 ABG pO2 ABG HCO3 ABG Hemoglobin Oxyhemoglobin Sodium Potassium Chloride Carbon Dioxide BUN Creatinine Glucose POC Glucose 139 H 168 H 161 H Lactic Acid Calcium Phosphorus Magnesium Direct Bilirubin AST ALT Alkaline Phosphatase Lactate Dehydrogenase Troponin T C-Reactive Protein Total Protein Albumin Prealbumin Triglycerides Cholesterol LDL Cholesterol Direct HDL Cholesterol Urine pH Urine WBC (Auto) Urine Creatinine Urine Total Protein Fluid Total Protein Vancomycin Trough Rheumatoid Factor Complement C4 Miscellaneous Test Crossmatch 10/12/16 10/12/16 10/12/16 04:40 04:40 05:44 WBC 22.5 H RBC 2.88 L Hgb 8.8 L Hct 26.8 L MCV MCH MCHC RDW 17.8 H Plt Count Lymph % (Auto) [place] % (Auto) Lymph # [place] # Baso # Seg Neutrophils % Seg Neuts % (Manual) Lymphocytes % (Manual) Monocytes % (Manual) Eosinophils % (Manual) Basophils % (Manual) Nucleated RBC % Seg Neutrophils # Seg Neutrophils # Man Lymphocytes # (Manual) Monocytes # (Manual) Eosinophils # (Manual) PT INR Fibrinogen dRVVT Confirm Interp Factor V Activity POC ABG pH POC ABG pCO2 POC ABG pO2 ABG pO2 ABG HCO3 ABG Hemoglobin Oxyhemoglobin Sodium 134 L Potassium Chloride 93.0 L Carbon Dioxide BUN 74 H Creatinine 2.5 H Glucose 137 H POC Glucose 158 H Lactic Acid Calcium 8.2 L Phosphorus Magnesium Direct Bilirubin AST ALT Alkaline Phosphatase Lactate Dehydrogenase Troponin T C-Reactive Protein Total Protein Albumin Prealbumin Triglycerides Cholesterol LDL Cholesterol Direct HDL Cholesterol Urine pH Urine WBC (Auto) Urine Creatinine Urine Total Protein Fluid Total Protein Vancomycin Trough Rheumatoid Factor Complement C4 Miscellaneous Test Crossmatch 10/12/16 10/12/16 10/12/16 12:27 18:18 23:46 WBC RBC Hgb Hct MCV MCH MCHC RDW Plt Count Lymph % (Auto) [place] % (Auto) Lymph # [place] # Baso # Seg Neutrophils % Seg Neuts % (Manual) Lymphocytes % (Manual) Monocytes % (Manual) Eosinophils % (Manual) Basophils % (Manual) Nucleated RBC % Seg Neutrophils # Seg Neutrophils # Man Lymphocytes # (Manual) Monocytes # (Manual) Eosinophils # (Manual) PT INR Fibrinogen dRVVT Confirm Interp Factor V Activity POC ABG pH POC ABG pCO2 POC ABG pO2 ABG pO2 ABG HCO3 ABG Hemoglobin Oxyhemoglobin Sodium Potassium Chloride Carbon Dioxide BUN Creatinine Glucose POC Glucose 153 H 140 H 150 H Lactic Acid Calcium Phosphorus Magnesium Direct Bilirubin AST ALT Alkaline Phosphatase Lactate Dehydrogenase Troponin T C-Reactive Protein Total Protein Albumin Prealbumin Triglycerides Cholesterol LDL Cholesterol Direct HDL Cholesterol Urine pH Urine WBC (Auto) Urine Creatinine Urine Total Protein Fluid Total Protein Vancomycin Trough Rheumatoid Factor Complement C4 Miscellaneous Test Crossmatch 10/13/16 10/13/16 10/13/16 06:22 09:20 12:29 WBC RBC Hgb Hct MCV MCH MCHC RDW Plt Count Lymph % (Auto) [place] % (Auto) Lymph # [place] # Baso # Seg Neutrophils % Seg Neuts % (Manual) Lymphocytes % (Manual) Monocytes % (Manual) Eosinophils % (Manual) Basophils % (Manual) Nucleated RBC % Seg Neutrophils # Seg Neutrophils # Man Lymphocytes # (Manual) Monocytes # (Manual) Eosinophils # (Manual) PT INR Fibrinogen dRVVT Confirm Interp Factor V Activity POC ABG pH POC ABG pCO2 POC ABG pO2 ABG pO2 ABG HCO3 ABG Hemoglobin Oxyhemoglobin Sodium Potassium Chloride Carbon Dioxide BUN Creatinine Glucose POC Glucose 165 H 193 H Lactic Acid Calcium Phosphorus Magnesium Direct Bilirubin AST ALT Alkaline Phosphatase Lactate Dehydrogenase Troponin T C-Reactive Protein Total Protein Albumin Prealbumin Triglycerides Cholesterol LDL Cholesterol Direct HDL Cholesterol Urine pH Urine WBC (Auto) Urine Creatinine Urine Total Protein Fluid Total Protein Vancomycin Trough Rheumatoid Factor Complement C4 Miscellaneous Test Flexitest 1 H Crossmatch 10/13/16 10/13/16 10/13/16 18:09 Unknown Unknown WBC 23.4 H RBC 2.83 L Hgb 8.7 L Hct 26.1 L MCV MCH MCHC RDW 18.1 H Plt Count Lymph % (Auto) [place] % (Auto) Lymph # [place] # Baso # Seg Neutrophils % Seg Neuts % (Manual) Lymphocytes % (Manual) Monocytes % (Manual) Eosinophils % (Manual) Basophils % (Manual) Nucleated RBC % Seg Neutrophils # Seg Neutrophils # Man Lymphocytes # (Manual) Monocytes # (Manual) Eosinophils # (Manual) PT INR Fibrinogen dRVVT Confirm Interp Factor V Activity POC ABG pH POC ABG pCO2 POC ABG pO2 ABG pO2 ABG HCO3 ABG Hemoglobin Oxyhemoglobin Sodium Potassium Chloride 95.8 L Carbon Dioxide BUN 82 H Creatinine 2.6 H Glucose 152 H POC Glucose 166 H Lactic Acid Calcium Phosphorus Magnesium Direct Bilirubin AST ALT Alkaline Phosphatase Lactate Dehydrogenase Troponin T C-Reactive Protein Total Protein Albumin Prealbumin Triglycerides Cholesterol LDL Cholesterol Direct HDL Cholesterol Urine pH Urine WBC (Auto) Urine Creatinine Urine Total Protein Fluid Total Protein Vancomycin Trough Rheumatoid Factor Complement C4 Miscellaneous Test Crossmatch 10/14/16 10/14/16 10/14/16 05:38 06:35 08:10 WBC 20.7 H RBC 2.81 L Hgb 8.4 L Hct 27.2 L MCV MCH MCHC RDW 19.4 H Plt Count Lymph % (Auto) [place] % (Auto) Lymph # [place] # Baso # Seg Neutrophils % Seg Neuts % (Manual) Lymphocytes % (Manual) Monocytes % (Manual) Eosinophils % (Manual) Basophils % (Manual) Nucleated RBC % Seg Neutrophils # Seg Neutrophils # Man Lymphocytes # (Manual) Monocytes # (Manual) Eosinophils # (Manual) PT INR Fibrinogen dRVVT Confirm Interp Factor V Activity POC ABG pH POC ABG pCO2 POC ABG pO2 ABG pO2 ABG HCO3 ABG Hemoglobin Oxyhemoglobin Sodium Potassium Chloride Carbon Dioxide BUN 58 H Creatinine 1.9 H Glucose 169 H POC Glucose 195 H Lactic Acid Calcium Phosphorus Magnesium Direct Bilirubin AST ALT Alkaline Phosphatase Lactate Dehydrogenase Troponin T C-Reactive Protein Total Protein Albumin Prealbumin Triglycerides Cholesterol LDL Cholesterol Direct HDL Cholesterol Urine pH Urine WBC (Auto) Urine Creatinine Urine Total Protein Fluid Total Protein Vancomycin Trough Rheumatoid Factor Complement C4 Miscellaneous Test Crossmatch 10/14/16 10/14/16 10/14/16 11:44 17:13 23:28 WBC RBC Hgb Hct MCV MCH MCHC RDW Plt Count Lymph % (Auto) [place] % (Auto) Lymph # [place] # Baso # Seg Neutrophils % Seg Neuts % (Manual) Lymphocytes % (Manual) Monocytes % (Manual) Eosinophils % (Manual) Basophils % (Manual) Nucleated RBC % Seg Neutrophils # Seg Neutrophils # Man Lymphocytes # (Manual) Monocytes # (Manual) Eosinophils # (Manual) PT INR Fibrinogen dRVVT Confirm Interp Factor V Activity POC ABG pH POC ABG pCO2 POC ABG pO2 ABG pO2 ABG HCO3 ABG Hemoglobin Oxyhemoglobin Sodium Potassium Chloride Carbon Dioxide BUN Creatinine Glucose POC Glucose 174 H 121 H 151 H Lactic Acid Calcium Phosphorus Magnesium Direct Bilirubin AST ALT Alkaline Phosphatase Lactate Dehydrogenase Troponin T C-Reactive Protein Total Protein Albumin Prealbumin Triglycerides Cholesterol LDL Cholesterol Direct HDL Cholesterol Urine pH Urine WBC (Auto) Urine Creatinine Urine Total Protein Fluid Total Protein Vancomycin Trough Rheumatoid Factor Complement C4 Miscellaneous Test Crossmatch 10/15/16 10/15/16 10/15/16 05:06 12:26 17:48 WBC RBC Hgb Hct MCV MCH MCHC RDW Plt Count Lymph % (Auto) [place] % (Auto) Lymph # [place] # Baso # Seg Neutrophils % Seg Neuts % (Manual) Lymphocytes % (Manual) Monocytes % (Manual) Eosinophils % (Manual) Basophils % (Manual) Nucleated RBC % Seg Neutrophils # Seg Neutrophils # Man Lymphocytes # (Manual) Monocytes # (Manual) Eosinophils # (Manual) PT INR Fibrinogen dRVVT Confirm Interp Factor V Activity POC ABG pH POC ABG pCO2 POC ABG pO2 ABG pO2 ABG HCO3 ABG Hemoglobin Oxyhemoglobin Sodium Potassium Chloride Carbon Dioxide BUN Creatinine Glucose POC Glucose 151 H 149 H 153 H Lactic Acid Calcium Phosphorus Magnesium Direct Bilirubin AST ALT Alkaline Phosphatase Lactate Dehydrogenase Troponin T C-Reactive Protein Total Protein Albumin Prealbumin Triglycerides Cholesterol LDL Cholesterol Direct HDL Cholesterol Urine pH Urine WBC (Auto) Urine Creatinine Urine Total Protein Fluid Total Protein Vancomycin Trough Rheumatoid Factor Complement C4 Miscellaneous Test Crossmatch 10/15/16 10/15/16 10/16/16 Unknown Unknown 00:02 WBC 23.4 H RBC 2.78 L Hgb 8.5 L Hct 25.7 L MCV MCH MCHC RDW 18.7 H Plt Count Lymph % (Auto) [place] % (Auto) Lymph # [place] # Baso # Seg Neutrophils % Seg Neuts % (Manual) Lymphocytes % (Manual) Monocytes % (Manual) Eosinophils % (Manual) Basophils % (Manual) Nucleated RBC % Seg Neutrophils # Seg Neutrophils # Man Lymphocytes # (Manual) Monocytes # (Manual) Eosinophils # (Manual) PT INR Fibrinogen dRVVT Confirm Interp Factor V Activity POC ABG pH POC ABG pCO2 POC ABG pO2 ABG pO2 ABG HCO3 ABG Hemoglobin Oxyhemoglobin Sodium Potassium Chloride Carbon Dioxide BUN 73 H Creatinine 2.3 H Glucose 120 H POC Glucose 137 H Lactic Acid Calcium Phosphorus Magnesium Direct Bilirubin AST ALT Alkaline Phosphatase Lactate Dehydrogenase Troponin T C-Reactive Protein Total Protein Albumin Prealbumin Triglycerides Cholesterol LDL Cholesterol Direct HDL Cholesterol Urine pH Urine WBC (Auto) Urine Creatinine Urine Total Protein Fluid Total Protein Vancomycin Trough Rheumatoid Factor Complement C4 Miscellaneous Test Crossmatch 10/16/16 10/16/16 10/16/16 05:44 06:25 06:25 WBC 22.5 H RBC 2.76 L Hgb 8.3 L Hct 25.2 L MCV MCH MCHC RDW 18.3 H Plt Count Lymph % (Auto) [place] % (Auto) Lymph # [place] # Baso # Seg Neutrophils % Seg Neuts % (Manual) Lymphocytes % (Manual) Monocytes % (Manual) Eosinophils % (Manual) Basophils % (Manual) Nucleated RBC % Seg Neutrophils # Seg Neutrophils # Man Lymphocytes # (Manual) Monocytes # (Manual) Eosinophils # (Manual) PT INR Fibrinogen dRVVT Confirm Interp Factor V Activity POC ABG pH POC ABG pCO2 POC ABG pO2 ABG pO2 ABG HCO3 ABG Hemoglobin Oxyhemoglobin Sodium Potassium Chloride Carbon Dioxide BUN 92 H Creatinine 3.0 H Glucose 138 H POC Glucose 110 H Lactic Acid Calcium Phosphorus Magnesium Direct Bilirubin AST ALT Alkaline Phosphatase Lactate Dehydrogenase Troponin T C-Reactive Protein Total Protein Albumin Prealbumin Triglycerides Cholesterol LDL Cholesterol Direct HDL Cholesterol Urine pH Urine WBC (Auto) Urine Creatinine Urine Total Protein Fluid Total Protein Vancomycin Trough Rheumatoid Factor Complement C4 Miscellaneous Test Crossmatch 10/16/16 10/16/16 10/16/16 11:27 11:48 17:36 WBC RBC Hgb Hct MCV MCH MCHC RDW Plt Count Lymph % (Auto) [place] % (Auto) Lymph # [place] # Baso # Seg Neutrophils % Seg Neuts % (Manual) Lymphocytes % (Manual) Monocytes % (Manual) Eosinophils % (Manual) Basophils % (Manual) Nucleated RBC % Seg Neutrophils # Seg Neutrophils # Man Lymphocytes # (Manual) Monocytes # (Manual) Eosinophils # (Manual) PT INR Fibrinogen dRVVT Confirm Interp Factor V Activity POC ABG pH 7.582 H POC ABG pCO2 27.4 L POC ABG pO2 110 H ABG pO2 ABG HCO3 ABG Hemoglobin Oxyhemoglobin Sodium Potassium Chloride Carbon Dioxide BUN Creatinine Glucose POC Glucose 121 H 133 H Lactic Acid Calcium Phosphorus Magnesium Direct Bilirubin AST ALT Alkaline Phosphatase Lactate Dehydrogenase Troponin T C-Reactive Protein Total Protein Albumin Prealbumin Triglycerides Cholesterol LDL Cholesterol Direct HDL Cholesterol Urine pH Urine WBC (Auto) Urine Creatinine Urine Total Protein Fluid Total Protein Vancomycin Trough Rheumatoid Factor Complement C4 Miscellaneous Test Crossmatch 10/16/16 10/17/16 10/17/16 20:48 04:24 04:24 WBC 21.4 H RBC 2.72 L Hgb 8.0 L Hct 25.2 L MCV MCH MCHC RDW 18.0 H Plt Count Lymph % (Auto) [place] % (Auto) Lymph # [place] # Baso # Seg Neutrophils % Seg Neuts % (Manual) Lymphocytes % (Manual) Monocytes % (Manual) Eosinophils % (Manual) Basophils % (Manual) Nucleated RBC % Seg Neutrophils # Seg Neutrophils # Man Lymphocytes # (Manual) Monocytes # (Manual) Eosinophils # (Manual) PT INR Fibrinogen dRVVT Confirm Interp Factor V Activity POC ABG pH 7.561 H POC ABG pCO2 24.4 L POC ABG pO2 77 L ABG pO2 ABG HCO3 ABG Hemoglobin Oxyhemoglobin Sodium 148 H Potassium Chloride Carbon Dioxide BUN 104 H Creatinine 3.0 H Glucose 149 H POC Glucose Lactic Acid Calcium Phosphorus Magnesium Direct Bilirubin AST ALT Alkaline Phosphatase 138 H Lactate Dehydrogenase Troponin T C-Reactive Protein Total Protein 6.2 L Albumin 1.5 L Prealbumin Triglycerides Cholesterol LDL Cholesterol Direct HDL Cholesterol Urine pH Urine WBC (Auto) Urine Creatinine Urine Total Protein Fluid Total Protein Vancomycin Trough Rheumatoid Factor Complement C4 Miscellaneous Test Crossmatch 10/17/16 10/17/16 10/17/16 06:02 12:17 17:14 WBC RBC Hgb Hct MCV MCH MCHC RDW Plt Count Lymph % (Auto) [place] % (Auto) Lymph # [place] # Baso # Seg Neutrophils % Seg Neuts % (Manual) Lymphocytes % (Manual) Monocytes % (Manual) Eosinophils % (Manual) Basophils % (Manual) Nucleated RBC % Seg Neutrophils # Seg Neutrophils # Man Lymphocytes # (Manual) Monocytes # (Manual) Eosinophils # (Manual) PT INR Fibrinogen dRVVT Confirm Interp Factor V Activity POC ABG pH POC ABG pCO2 POC ABG pO2 ABG pO2 ABG HCO3 ABG Hemoglobin Oxyhemoglobin Sodium Potassium Chloride Carbon Dioxide BUN Creatinine Glucose POC Glucose 170 H 167 H 126 H Lactic Acid Calcium Phosphorus Magnesium Direct Bilirubin AST ALT Alkaline Phosphatase Lactate Dehydrogenase Troponin T C-Reactive Protein Total Protein Albumin Prealbumin Triglycerides Cholesterol LDL Cholesterol Direct HDL Cholesterol Urine pH Urine WBC (Auto) Urine Creatinine Urine Total Protein Fluid Total Protein Vancomycin Trough Rheumatoid Factor Complement C4 Miscellaneous Test Crossmatch 10/17/16 10/18/16 10/18/16 23:17 04:00 04:00 WBC 20.7 H RBC 2.47 L Hgb 7.4 L Hct 22.9 L MCV MCH MCHC RDW 17.5 H Plt Count Lymph % (Auto) [place] % (Auto) Lymph # [place] # Baso # Seg Neutrophils % Seg Neuts % (Manual) Lymphocytes % (Manual) Monocytes % (Manual) Eosinophils % (Manual) Basophils % (Manual) Nucleated RBC % Seg Neutrophils # Seg Neutrophils # Man Lymphocytes # (Manual) Monocytes # (Manual) Eosinophils # (Manual) PT INR Fibrinogen dRVVT Confirm Interp Factor V Activity POC ABG pH POC ABG pCO2 POC ABG pO2 ABG pO2 ABG HCO3 ABG Hemoglobin Oxyhemoglobin Sodium 149 H Potassium Chloride 107.9 H Carbon Dioxide 20 L BUN 117 H Creatinine 3.2 H Glucose 119 H POC Glucose 121 H Lactic Acid Calcium Phosphorus Magnesium Direct Bilirubin AST ALT Alkaline Phosphatase Lactate Dehydrogenase Troponin T C-Reactive Protein Total Protein Albumin Prealbumin Triglycerides Cholesterol LDL Cholesterol Direct HDL Cholesterol Urine pH Urine WBC (Auto) Urine Creatinine Urine Total Protein Fluid Total Protein Vancomycin Trough Rheumatoid Factor Complement C4 Miscellaneous Test Crossmatch 10/18/16 10/18/16 10/18/16 05:23 10:46 17:30 WBC RBC Hgb Hct MCV MCH MCHC RDW Plt Count Lymph % (Auto) [place] % (Auto) Lymph # [place] # Baso # Seg Neutrophils % Seg Neuts % (Manual) Lymphocytes % (Manual) Monocytes % (Manual) Eosinophils % (Manual) Basophils % (Manual) Nucleated RBC % Seg Neutrophils # Seg Neutrophils # Man Lymphocytes # (Manual) Monocytes # (Manual) Eosinophils # (Manual) PT INR Fibrinogen dRVVT Confirm Interp Factor V Activity POC ABG pH POC ABG pCO2 POC ABG pO2 ABG pO2 ABG HCO3 ABG Hemoglobin Oxyhemoglobin Sodium Potassium Chloride Carbon Dioxide BUN Creatinine Glucose POC Glucose 119 H 155 H 124 H Lactic Acid Calcium Phosphorus Magnesium Direct Bilirubin AST ALT Alkaline Phosphatase Lactate Dehydrogenase Troponin T C-Reactive Protein Total Protein Albumin Prealbumin Triglycerides Cholesterol LDL Cholesterol Direct HDL Cholesterol Urine pH Urine WBC (Auto) Urine Creatinine Urine Total Protein Fluid Total Protein Vancomycin Trough Rheumatoid Factor Complement C4 Miscellaneous Test Crossmatch 10/19/16 10/19/16 10/19/16 04:00 04:00 05:25 WBC 17.4 H RBC 2.54 L Hgb 7.7 L Hct 23.6 L MCV MCH MCHC RDW 17.3 H Plt Count Lymph % (Auto) [place] % (Auto) Lymph # [place] # Baso # Seg Neutrophils % Seg Neuts % (Manual) Lymphocytes % (Manual) Monocytes % (Manual) Eosinophils % (Manual) Basophils % (Manual) Nucleated RBC % Seg Neutrophils # Seg Neutrophils # Man Lymphocytes # (Manual) Monocytes # (Manual) Eosinophils # (Manual) PT INR Fibrinogen dRVVT Confirm Interp Factor V Activity POC ABG pH POC ABG pCO2 POC ABG pO2 ABG pO2 ABG HCO3 ABG Hemoglobin Oxyhemoglobin Sodium Potassium Chloride Carbon Dioxide BUN 72 H Creatinine 2.1 H Glucose 116 H POC Glucose 119 H Lactic Acid Calcium Phosphorus Magnesium Direct Bilirubin AST ALT Alkaline Phosphatase Lactate Dehydrogenase Troponin T C-Reactive Protein Total Protein Albumin Prealbumin Triglycerides Cholesterol LDL Cholesterol Direct HDL Cholesterol Urine pH Urine WBC (Auto) Urine Creatinine Urine Total Protein Fluid Total Protein Vancomycin Trough Rheumatoid Factor Complement C4 Miscellaneous Test Crossmatch 10/19/16 10/19/16 10/20/16 11:46 23:59 06:00 WBC RBC Hgb Hct MCV MCH MCHC RDW Plt Count Lymph % (Auto) [place] % (Auto) Lymph # [place] # Baso # Seg Neutrophils % Seg Neuts % (Manual) Lymphocytes % (Manual) Monocytes % (Manual) Eosinophils % (Manual) Basophils % (Manual) Nucleated RBC % Seg Neutrophils # Seg Neutrophils # Man Lymphocytes # (Manual) Monocytes # (Manual) Eosinophils # (Manual) PT INR Fibrinogen dRVVT Confirm Interp Factor V Activity POC ABG pH POC ABG pCO2 POC ABG pO2 ABG pO2 ABG HCO3 ABG Hemoglobin Oxyhemoglobin Sodium Potassium Chloride Carbon Dioxide 17 L BUN 94 H Creatinine 2.7 H Glucose POC Glucose 116 H 117 H Lactic Acid Calcium Phosphorus Magnesium Direct Bilirubin AST ALT Alkaline Phosphatase Lactate Dehydrogenase Troponin T C-Reactive Protein Total Protein Albumin Prealbumin Triglycerides Cholesterol LDL Cholesterol Direct HDL Cholesterol Urine pH Urine WBC (Auto) Urine Creatinine Urine Total Protein Fluid Total Protein Vancomycin Trough Rheumatoid Factor Complement C4 Miscellaneous Test Crossmatch 10/20/16 10/20/16 10/20/16 06:00 11:49 16:00 WBC 19.7 H RBC 2.51 L Hgb 7.7 L Hct 23.5 L MCV MCH MCHC RDW 17.5 H Plt Count Lymph % (Auto) [place] % (Auto) Lymph # [place] # Baso # Seg Neutrophils % Seg Neuts % (Manual) Lymphocytes % (Manual) Monocytes % (Manual) Eosinophils % (Manual) Basophils % (Manual) Nucleated RBC % Seg Neutrophils # Seg Neutrophils # Man Lymphocytes # (Manual) Monocytes # (Manual) Eosinophils # (Manual) PT INR Fibrinogen dRVVT Confirm Interp Factor V Activity POC ABG pH POC ABG pCO2 POC ABG pO2 ABG pO2 ABG HCO3 ABG Hemoglobin Oxyhemoglobin Sodium Potassium Chloride Carbon Dioxide BUN Creatinine Glucose POC Glucose 117 H Lactic Acid Calcium Phosphorus Magnesium Direct Bilirubin AST ALT Alkaline Phosphatase Lactate Dehydrogenase Troponin T C-Reactive Protein Total Protein Albumin Prealbumin Triglycerides Cholesterol LDL Cholesterol Direct HDL Cholesterol Urine pH Urine WBC (Auto) Urine Creatinine Urine Total Protein Fluid Total Protein Vancomycin Trough Rheumatoid Factor Complement C4 Miscellaneous Test Flexitest 1 H Crossmatch 10/20/16 10/20/16 10/21/16 18:36 23:39 04:00 WBC RBC Hgb Hct MCV MCH MCHC RDW Plt Count Lymph % (Auto) [place] % (Auto) Lymph # [place] # Baso # Seg Neutrophils % Seg Neuts % (Manual) Lymphocytes % (Manual) Monocytes % (Manual) Eosinophils % (Manual) Basophils % (Manual) Nucleated RBC % Seg Neutrophils # Seg Neutrophils # Man Lymphocytes # (Manual) Monocytes # (Manual) Eosinophils # (Manual) PT INR Fibrinogen dRVVT Confirm Interp Factor V Activity POC ABG pH POC ABG pCO2 POC ABG pO2 ABG pO2 ABG HCO3 ABG Hemoglobin Oxyhemoglobin Sodium Potassium 5.4 H D Chloride Carbon Dioxide 15 L BUN 110 H Creatinine 3.0 H Glucose POC Glucose 127 H 114 H Lactic Acid Calcium Phosphorus Magnesium Direct Bilirubin AST ALT Alkaline Phosphatase Lactate Dehydrogenase Troponin T C-Reactive Protein Total Protein Albumin Prealbumin Triglycerides Cholesterol LDL Cholesterol Direct HDL Cholesterol Urine pH Urine WBC (Auto) Urine Creatinine Urine Total Protein Fluid Total Protein Vancomycin Trough Rheumatoid Factor Complement C4 Miscellaneous Test Crossmatch 10/21/16 10/21/16 10/22/16 05:54 23:46 05:18 WBC RBC Hgb Hct MCV MCH MCHC RDW Plt Count Lymph % (Auto) [place] % (Auto) Lymph # [place] # Baso # Seg Neutrophils % Seg Neuts % (Manual) Lymphocytes % (Manual) Monocytes % (Manual) Eosinophils % (Manual) Basophils % (Manual) Nucleated RBC % Seg Neutrophils # Seg Neutrophils # Man Lymphocytes # (Manual) Monocytes # (Manual) Eosinophils # (Manual) PT INR Fibrinogen dRVVT Confirm Interp Factor V Activity POC ABG pH POC ABG pCO2 POC ABG pO2 ABG pO2 ABG HCO3 ABG Hemoglobin Oxyhemoglobin Sodium Potassium Chloride Carbon Dioxide BUN Creatinine Glucose POC Glucose 119 H 108 H 109 H Lactic Acid Calcium Phosphorus Magnesium Direct Bilirubin AST ALT Alkaline Phosphatase Lactate Dehydrogenase Troponin T C-Reactive Protein Total Protein Albumin Prealbumin Triglycerides Cholesterol LDL Cholesterol Direct HDL Cholesterol Urine pH Urine WBC (Auto) Urine Creatinine Urine Total Protein Fluid Total Protein Vancomycin Trough Rheumatoid Factor Complement C4 Miscellaneous Test Crossmatch 09/02/17 09/02/17 09/02/17 06:40 06:40 06:40 WBC 14.0 H RBC 2.03 L Hgb 7.0 L Hct 20.5 L MCV 98 H MCH 34 H MCHC 35 H RDW 17.8 H Plt Count Lymph % (Auto) [place] % (Auto) 9.9 H Lymph # [place] # 1.4 H Baso # 0.2 H Seg Neutrophils % 72.0 H Seg Neuts % (Manual) Lymphocytes % (Manual) Monocytes % (Manual) Eosinophils % (Manual) Basophils % (Manual) Nucleated RBC % Seg Neutrophils # 10.0 H Seg Neutrophils # Man Lymphocytes # (Manual) Monocytes # (Manual) Eosinophils # (Manual) PT INR Fibrinogen dRVVT Confirm Interp Factor V Activity POC ABG pH POC ABG pCO2 POC ABG pO2 ABG pO2 ABG HCO3 ABG Hemoglobin Oxyhemoglobin Sodium 130 L D Potassium Chloride 92.4 L Carbon Dioxide 20 L BUN 50 H Creatinine 1.6 H Glucose 589 H* POC Glucose Lactic Acid Calcium 7.8 L D Phosphorus Magnesium 1.60 L Direct Bilirubin AST ALT Alkaline Phosphatase Lactate Dehydrogenase Troponin T C-Reactive Protein Total Protein Albumin Prealbumin Triglycerides Cholesterol LDL Cholesterol Direct HDL Cholesterol Urine pH Urine WBC (Auto) Urine Creatinine Urine Total Protein Fluid Total Protein Vancomycin Trough Rheumatoid Factor Complement C4 Miscellaneous Test Crossmatch 10/22/16 10/22/16 10/22/16 11:39 16:44 23:36 WBC RBC Hgb Hct MCV MCH MCHC RDW Plt Count Lymph % (Auto) [place] % (Auto) Lymph # [place] # Baso # Seg Neutrophils % Seg Neuts % (Manual) Lymphocytes % (Manual) Monocytes % (Manual) Eosinophils % (Manual) Basophils % (Manual) Nucleated RBC % Seg Neutrophils # Seg Neutrophils # Man Lymphocytes # (Manual) Monocytes # (Manual) Eosinophils # (Manual) PT INR Fibrinogen dRVVT Confirm Interp Factor V Activity POC ABG pH POC ABG pCO2 POC ABG pO2 ABG pO2 ABG HCO3 ABG Hemoglobin Oxyhemoglobin Sodium Potassium Chloride Carbon Dioxide BUN Creatinine Glucose POC Glucose 142 H 163 H 123 H Lactic Acid Calcium Phosphorus Magnesium Direct Bilirubin AST ALT Alkaline Phosphatase Lactate Dehydrogenase Troponin T C-Reactive Protein Total Protein Albumin Prealbumin Triglycerides Cholesterol LDL Cholesterol Direct HDL Cholesterol Urine pH Urine WBC (Auto) Urine Creatinine Urine Total Protein Fluid Total Protein Vancomycin Trough Rheumatoid Factor Complement C4 Miscellaneous Test Crossmatch 10/23/16 10/23/16 10/23/16 04:58 06:00 12:12 WBC RBC Hgb Hct MCV MCH MCHC RDW Plt Count Lymph % (Auto) [place] % (Auto) Lymph # [place] # Baso # Seg Neutrophils % Seg Neuts % (Manual) Lymphocytes % (Manual) Monocytes % (Manual) Eosinophils % (Manual) Basophils % (Manual) Nucleated RBC % Seg Neutrophils # Seg Neutrophils # Man Lymphocytes # (Manual) Monocytes # (Manual) Eosinophils # (Manual) PT INR Fibrinogen dRVVT Confirm Interp Factor V Activity POC ABG pH POC ABG pCO2 POC ABG pO2 ABG pO2 ABG HCO3 ABG Hemoglobin Oxyhemoglobin Sodium 133 L Potassium 3.5 L Chloride 96.1 L Carbon Dioxide 18 L BUN 76 H Creatinine 2.1 H Glucose POC Glucose 133 H 138 H Lactic Acid Calcium 8.3 L Phosphorus Magnesium Direct Bilirubin AST ALT Alkaline Phosphatase Lactate Dehydrogenase Troponin T C-Reactive Protein Total Protein Albumin Prealbumin Triglycerides Cholesterol LDL Cholesterol Direct HDL Cholesterol Urine pH Urine WBC (Auto) Urine Creatinine Urine Total Protein Fluid Total Protein Vancomycin Trough Rheumatoid Factor Complement C4 Miscellaneous Test Crossmatch 10/23/16 10/23/16 10/24/16 16:53 23:37 04:00 WBC RBC Hgb Hct MCV MCH MCHC RDW Plt Count Lymph % (Auto) [place] % (Auto) Lymph # [place] # Baso # Seg Neutrophils % Seg Neuts % (Manual) Lymphocytes % (Manual) Monocytes % (Manual) Eosinophils % (Manual) Basophils % (Manual) Nucleated RBC % Seg Neutrophils # Seg Neutrophils # Man Lymphocytes # (Manual) Monocytes # (Manual) Eosinophils # (Manual) PT INR Fibrinogen dRVVT Confirm Interp Factor V Activity POC ABG pH POC ABG pCO2 POC ABG pO2 ABG pO2 ABG HCO3 ABG Hemoglobin Oxyhemoglobin Sodium 131 L Potassium Chloride 94.5 L Carbon Dioxide 19 L BUN 97 H Creatinine 2.6 H Glucose 110 H POC Glucose 125 H 123 H Lactic Acid Calcium 8.3 L Phosphorus Magnesium Direct Bilirubin AST ALT Alkaline Phosphatase Lactate Dehydrogenase Troponin T C-Reactive Protein Total Protein Albumin Prealbumin Triglycerides Cholesterol LDL Cholesterol Direct HDL Cholesterol Urine pH Urine WBC (Auto) Urine Creatinine Urine Total Protein Fluid Total Protein Vancomycin Trough Rheumatoid Factor Complement C4 Miscellaneous Test Crossmatch 10/24/16 10/24/16 10/24/16 07:49 11:39 17:52 WBC RBC Hgb 6.0 L Hct 19.7 L* MCV MCH MCHC RDW Plt Count Lymph % (Auto) [place] % (Auto) Lymph # [place] # Baso # Seg Neutrophils % Seg Neuts % (Manual) Lymphocytes % (Manual) Monocytes % (Manual) Eosinophils % (Manual) Basophils % (Manual) Nucleated RBC % Seg Neutrophils # Seg Neutrophils # Man Lymphocytes # (Manual) Monocytes # (Manual) Eosinophils # (Manual) PT INR Fibrinogen dRVVT Confirm Interp Factor V Activity POC ABG pH POC ABG pCO2 POC ABG pO2 ABG pO2 ABG HCO3 ABG Hemoglobin Oxyhemoglobin Sodium Potassium Chloride Carbon Dioxide BUN Creatinine Glucose POC Glucose 106 H 158 H Lactic Acid Calcium Phosphorus Magnesium Direct Bilirubin AST ALT Alkaline Phosphatase Lactate Dehydrogenase Troponin T C-Reactive Protein Total Protein Albumin Prealbumin Triglycerides Cholesterol LDL Cholesterol Direct HDL Cholesterol Urine pH Urine WBC (Auto) Urine Creatinine Urine Total Protein Fluid Total Protein Vancomycin Trough Rheumatoid Factor Complement C4 Miscellaneous Test Crossmatch 10/24/16 10/24/16 10/24/16 20:00 22:27 Unknown WBC RBC Hgb 9.4 L D Hct 27.5 L D MCV MCH MCHC RDW Plt Count Lymph % (Auto) [place] % (Auto) Lymph # [place] # Baso # Seg Neutrophils % Seg Neuts % (Manual) Lymphocytes % (Manual) Monocytes % (Manual) Eosinophils % (Manual) Basophils % (Manual) Nucleated RBC % Seg Neutrophils # Seg Neutrophils # Man Lymphocytes # (Manual) Monocytes # (Manual) Eosinophils # (Manual) PT INR Fibrinogen dRVVT Confirm Interp Factor V Activity POC ABG pH POC ABG pCO2 POC ABG pO2 ABG pO2 ABG HCO3 ABG Hemoglobin Oxyhemoglobin Sodium Potassium Chloride Carbon Dioxide BUN Creatinine Glucose POC Glucose 125 H Lactic Acid Calcium Phosphorus Magnesium Direct Bilirubin AST ALT Alkaline Phosphatase Lactate Dehydrogenase Troponin T C-Reactive Protein Total Protein Albumin Prealbumin Triglycerides Cholesterol LDL Cholesterol Direct HDL Cholesterol Urine pH Urine WBC (Auto) Urine Creatinine Urine Total Protein Fluid Total Protein Vancomycin Trough Rheumatoid Factor Complement C4 Miscellaneous Test Crossmatch See Detail 10/25/16 10/25/16 10/25/16 04:00 04:00 04:00 WBC 14.2 H RBC 2.98 L Hgb 9.0 L Hct 26.2 L MCV MCH MCHC RDW 16.6 H Plt Count Lymph % (Auto) [place] % (Auto) 10.7 H Lymph # [place] # 1.5 H Baso # Seg Neutrophils % 73.6 H Seg Neuts % (Manual) Lymphocytes % (Manual) Monocytes % (Manual) Eosinophils % (Manual) Basophils % (Manual) Nucleated RBC % Seg Neutrophils # 10.5 H Seg Neutrophils # Man Lymphocytes # (Manual) Monocytes # (Manual) Eosinophils # (Manual) PT INR Fibrinogen dRVVT Confirm Interp Factor V Activity POC ABG pH POC ABG pCO2 POC ABG pO2 ABG pO2 ABG HCO3 ABG Hemoglobin Oxyhemoglobin Sodium 132 L Potassium Chloride 94.7 L Carbon Dioxide BUN 51 H Creatinine 1.6 H Glucose 130 H POC Glucose Lactic Acid Calcium 8.3 L Phosphorus 1.60 L D Magnesium Direct Bilirubin AST ALT Alkaline Phosphatase Lactate Dehydrogenase Troponin T C-Reactive Protein Total Protein Albumin Prealbumin Triglycerides Cholesterol LDL Cholesterol Direct HDL Cholesterol Urine pH Urine WBC (Auto) Urine Creatinine Urine Total Protein Fluid Total Protein Vancomycin Trough Rheumatoid Factor Complement C4 Miscellaneous Test Crossmatch 10/25/16 10/25/16 10/25/16 04:32 11:48 17:22 WBC RBC Hgb Hct MCV MCH MCHC RDW Plt Count Lymph % (Auto) [place] % (Auto) Lymph # [place] # Baso # Seg Neutrophils % Seg Neuts % (Manual) Lymphocytes % (Manual) Monocytes % (Manual) Eosinophils % (Manual) Basophils % (Manual) Nucleated RBC % Seg Neutrophils # Seg Neutrophils # Man Lymphocytes # (Manual) Monocytes # (Manual) Eosinophils # (Manual) PT INR Fibrinogen dRVVT Confirm Interp Factor V Activity POC ABG pH POC ABG pCO2 POC ABG pO2 ABG pO2 ABG HCO3 ABG Hemoglobin Oxyhemoglobin Sodium Potassium Chloride Carbon Dioxide BUN Creatinine Glucose POC Glucose 124 H 171 H 120 H Lactic Acid Calcium Phosphorus Magnesium Direct Bilirubin AST ALT Alkaline Phosphatase Lactate Dehydrogenase Troponin T C-Reactive Protein Total Protein Albumin Prealbumin Triglycerides Cholesterol LDL Cholesterol Direct HDL Cholesterol Urine pH Urine WBC (Auto) Urine Creatinine Urine Total Protein Fluid Total Protein Vancomycin Trough Rheumatoid Factor Complement C4 Miscellaneous Test Crossmatch 10/26/16 10/26/16 10/26/16 04:54 07:06 07:06 WBC 16.9 H RBC 3.06 L Hgb 9.1 L Hct 26.9 L MCV MCH MCHC RDW 16.9 H Plt Count Lymph % (Auto) [place] % (Auto) Lymph # [place] # Baso # Seg Neutrophils % Seg Neuts % (Manual) 71.0 H Lymphocytes % (Manual) 5.0 L Monocytes % (Manual) 12.0 H Eosinophils % (Manual) Basophils % (Manual) Nucleated RBC % Seg Neutrophils # Seg Neutrophils # Man 12.0 H Lymphocytes # (Manual) 0.8 L Monocytes # (Manual) 2.0 H Eosinophils # (Manual) PT INR Fibrinogen dRVVT Confirm Interp Factor V Activity POC ABG pH POC ABG pCO2 POC ABG pO2 ABG pO2 ABG HCO3 ABG Hemoglobin Oxyhemoglobin Sodium 135 L Potassium Chloride 97.1 L Carbon Dioxide BUN 73 H Creatinine 2.2 H Glucose 117 H POC Glucose 123 H Lactic Acid Calcium Phosphorus 1.70 L Magnesium Direct Bilirubin AST ALT Alkaline Phosphatase Lactate Dehydrogenase Troponin T C-Reactive Protein Total Protein Albumin Prealbumin Triglycerides Cholesterol LDL Cholesterol Direct HDL Cholesterol Urine pH Urine WBC (Auto) Urine Creatinine Urine Total Protein Fluid Total Protein Vancomycin Trough Rheumatoid Factor Complement C4 Miscellaneous Test Crossmatch 10/26/16 10/26/16 10/26/16 12:12 17:29 23:42 WBC RBC Hgb Hct MCV MCH MCHC RDW Plt Count Lymph % (Auto) [place] % (Auto) Lymph # [place] # Baso # Seg Neutrophils % Seg Neuts % (Manual) Lymphocytes % (Manual) Monocytes % (Manual) Eosinophils % (Manual) Basophils % (Manual) Nucleated RBC % Seg Neutrophils # Seg Neutrophils # Man Lymphocytes # (Manual) Monocytes # (Manual) Eosinophils # (Manual) PT INR Fibrinogen dRVVT Confirm Interp Factor V Activity POC ABG pH POC ABG pCO2 POC ABG pO2 ABG pO2 ABG HCO3 ABG Hemoglobin Oxyhemoglobin Sodium Potassium Chloride Carbon Dioxide BUN Creatinine Glucose POC Glucose 126 H 161 H 118 H Lactic Acid Calcium Phosphorus Magnesium Direct Bilirubin AST ALT Alkaline Phosphatase Lactate Dehydrogenase Troponin T C-Reactive Protein Total Protein Albumin Prealbumin Triglycerides Cholesterol LDL Cholesterol Direct HDL Cholesterol Urine pH Urine WBC (Auto) Urine Creatinine Urine Total Protein Fluid Total Protein Vancomycin Trough Rheumatoid Factor Complement C4 Miscellaneous Test Crossmatch 10/27/16 10/27/16 10/27/16 05:03 06:30 06:30 WBC 13.9 H RBC 3.09 L Hgb 9.2 L Hct 27.5 L MCV MCH MCHC RDW 17.0 H Plt Count Lymph % (Auto) [place] % (Auto) Lymph # [place] # Baso # Seg Neutrophils % Seg Neuts % (Manual) 78.0 H Lymphocytes % (Manual) Monocytes % (Manual) Eosinophils % (Manual) Basophils % (Manual) Nucleated RBC % 2.0 H Seg Neutrophils # Seg Neutrophils # Man 10.8 H Lymphocytes # (Manual) Monocytes # (Manual) 1.0 H Eosinophils # (Manual) PT INR Fibrinogen dRVVT Confirm Interp Factor V Activity POC ABG pH POC ABG pCO2 POC ABG pO2 ABG pO2 ABG HCO3 ABG Hemoglobin Oxyhemoglobin Sodium Potassium Chloride Carbon Dioxide BUN 40 H Creatinine 1.5 H Glucose 135 H POC Glucose 107 H Lactic Acid Calcium 8.3 L Phosphorus 1.30 L D Magnesium Direct Bilirubin AST ALT Alkaline Phosphatase Lactate Dehydrogenase Troponin T C-Reactive Protein Total Protein Albumin Prealbumin Triglycerides Cholesterol LDL Cholesterol Direct HDL Cholesterol Urine pH Urine WBC (Auto) Urine Creatinine Urine Total Protein Fluid Total Protein Vancomycin Trough Rheumatoid Factor Complement C4 Miscellaneous Test Crossmatch 10/27/16 10/27/16 10/27/16 13:27 18:07 23:40 WBC RBC Hgb Hct MCV MCH MCHC RDW Plt Count Lymph % (Auto) [place] % (Auto) Lymph # [place] # Baso # Seg Neutrophils % Seg Neuts % (Manual) Lymphocytes % (Manual) Monocytes % (Manual) Eosinophils % (Manual) Basophils % (Manual) Nucleated RBC % Seg Neutrophils # Seg Neutrophils # Man Lymphocytes # (Manual) Monocytes # (Manual) Eosinophils # (Manual) PT INR Fibrinogen dRVVT Confirm Interp Factor V Activity POC ABG pH POC ABG pCO2 POC ABG pO2 ABG pO2 ABG HCO3 ABG Hemoglobin Oxyhemoglobin Sodium Potassium Chloride Carbon Dioxide BUN Creatinine Glucose POC Glucose 117 H 121 H 118 H Lactic Acid Calcium Phosphorus Magnesium Direct Bilirubin AST ALT Alkaline Phosphatase Lactate Dehydrogenase Troponin T C-Reactive Protein Total Protein Albumin Prealbumin Triglycerides Cholesterol LDL Cholesterol Direct HDL Cholesterol Urine pH Urine WBC (Auto) Urine Creatinine Urine Total Protein Fluid Total Protein Vancomycin Trough Rheumatoid Factor Complement C4 Miscellaneous Test Crossmatch 10/28/16 10/28/16 10/28/16 05:48 06:45 06:45 WBC 14.7 H RBC 3.05 L Hgb 9.0 L Hct 26.9 L MCV MCH MCHC RDW 16.8 H Plt Count Lymph % (Auto) 8.2 L [place] % (Auto) 8.4 H Lymph # [place] # 1.2 H Baso # Seg Neutrophils % 81.9 H Seg Neuts % (Manual) Lymphocytes % (Manual) Monocytes % (Manual) Eosinophils % (Manual) Basophils % (Manual) Nucleated RBC % Seg Neutrophils # 12.1 H Seg Neutrophils # Man Lymphocytes # (Manual) Monocytes # (Manual) Eosinophils # (Manual) PT INR Fibrinogen dRVVT Confirm Interp Factor V Activity POC ABG pH POC ABG pCO2 POC ABG pO2 ABG pO2 ABG HCO3 ABG Hemoglobin Oxyhemoglobin Sodium Potassium Chloride Carbon Dioxide BUN 60 H Creatinine 1.9 H Glucose 120 H POC Glucose 114 H Lactic Acid Calcium Phosphorus Magnesium Direct Bilirubin AST ALT Alkaline Phosphatase Lactate Dehydrogenase Troponin T C-Reactive Protein Total Protein Albumin Prealbumin Triglycerides Cholesterol LDL Cholesterol Direct HDL Cholesterol Urine pH Urine WBC (Auto) Urine Creatinine Urine Total Protein Fluid Total Protein Vancomycin Trough Rheumatoid Factor Complement C4 Miscellaneous Test Crossmatch 10/28/16 10/28/16 10/29/16 17:08 23:50 05:10 WBC RBC Hgb Hct MCV MCH MCHC RDW Plt Count Lymph % (Auto) [place] % (Auto) Lymph # [place] # Baso # Seg Neutrophils % Seg Neuts % (Manual) Lymphocytes % (Manual) Monocytes % (Manual) Eosinophils % (Manual) Basophils % (Manual) Nucleated RBC % Seg Neutrophils # Seg Neutrophils # Man Lymphocytes # (Manual) Monocytes # (Manual) Eosinophils # (Manual) PT INR Fibrinogen dRVVT Confirm Interp Factor V Activity POC ABG pH POC ABG pCO2 POC ABG pO2 ABG pO2 ABG HCO3 ABG Hemoglobin Oxyhemoglobin Sodium Potassium Chloride Carbon Dioxide BUN Creatinine Glucose POC Glucose 109 H 110 H 124 H Lactic Acid Calcium Phosphorus Magnesium Direct Bilirubin AST ALT Alkaline Phosphatase Lactate Dehydrogenase Troponin T C-Reactive Protein Total Protein Albumin Prealbumin Triglycerides Cholesterol LDL Cholesterol Direct HDL Cholesterol Urine pH Urine WBC (Auto) Urine Creatinine Urine Total Protein Fluid Total Protein Vancomycin Trough Rheumatoid Factor Complement C4 Miscellaneous Test Crossmatch 10/29/16 10/29/16 10/29/16 07:45 07:45 12:19 WBC 14.7 H RBC 3.15 L Hgb 9.3 L Hct 28.9 L MCV MCH MCHC RDW 17.0 H Plt Count Lymph % (Auto) 11.9 L [place] % (Auto) 8.6 H Lymph # [place] # 1.3 H Baso # Seg Neutrophils % 78.1 H Seg Neuts % (Manual) Lymphocytes % (Manual) Monocytes % (Manual) Eosinophils % (Manual) Basophils % (Manual) Nucleated RBC % Seg Neutrophils # 11.4 H Seg Neutrophils # Man Lymphocytes # (Manual) Monocytes # (Manual) Eosinophils # (Manual) PT INR Fibrinogen dRVVT Confirm Interp Factor V Activity POC ABG pH POC ABG pCO2 POC ABG pO2 ABG pO2 ABG HCO3 ABG Hemoglobin Oxyhemoglobin Sodium Potassium 5.1 H Chloride Carbon Dioxide 19 L BUN 78 H Creatinine 2.2 H Glucose 116 H POC Glucose 118 H Lactic Acid Calcium Phosphorus Magnesium Direct Bilirubin AST ALT Alkaline Phosphatase Lactate Dehydrogenase Troponin T C-Reactive Protein Total Protein Albumin Prealbumin Triglycerides Cholesterol LDL Cholesterol Direct HDL Cholesterol Urine pH Urine WBC (Auto) Urine Creatinine Urine Total Protein Fluid Total Protein Vancomycin Trough Rheumatoid Factor Complement C4 Miscellaneous Test Crossmatch 10/29/16 10/30/16 10/30/16 17:49 01:52 03:28 WBC RBC Hgb Hct MCV MCH MCHC RDW Plt Count Lymph % (Auto) [place] % (Auto) Lymph # [place] # Baso # Seg Neutrophils % Seg Neuts % (Manual) Lymphocytes % (Manual) Monocytes % (Manual) Eosinophils % (Manual) Basophils % (Manual) Nucleated RBC % Seg Neutrophils # Seg Neutrophils # Man Lymphocytes # (Manual) Monocytes # (Manual) Eosinophils # (Manual) PT INR Fibrinogen dRVVT Confirm Interp Factor V Activity POC ABG pH POC ABG pCO2 POC ABG pO2 ABG pO2 ABG HCO3 ABG Hemoglobin Oxyhemoglobin Sodium Potassium 5.4 H Chloride 97.5 L Carbon Dioxide 19 L BUN 90 H Creatinine 2.5 H Glucose POC Glucose 120 H 129 H Lactic Acid Calcium Phosphorus 5.20 H Magnesium Direct Bilirubin AST ALT Alkaline Phosphatase Lactate Dehydrogenase Troponin T C-Reactive Protein Total Protein Albumin Prealbumin Triglycerides Cholesterol LDL Cholesterol Direct HDL Cholesterol Urine pH Urine WBC (Auto) Urine Creatinine Urine Total Protein Fluid Total Protein Vancomycin Trough Rheumatoid Factor Complement C4 Miscellaneous Test Crossmatch 10/30/16 10/30/16 10/30/16 03:28 08:19 08:19 WBC 11.6 H 15.9 H RBC 2.75 L 2.82 L Hgb 7.9 L 8.3 L Hct 24.2 L 25.2 L MCV MCH MCHC RDW 16.7 H 17.2 H Plt Count Lymph % (Auto) [place] % (Auto) 9.8 H Lymph # [place] # 1.1 H Baso # Seg Neutrophils % 74.2 H Seg Neuts % (Manual) Lymphocytes % (Manual) Monocytes % (Manual) Eosinophils % (Manual) Basophils % (Manual) Nucleated RBC % Seg Neutrophils # 8.6 H Seg Neutrophils # Man Lymphocytes # (Manual) Monocytes # (Manual) Eosinophils # (Manual) PT INR Fibrinogen dRVVT Confirm Interp Factor V Activity POC ABG pH POC ABG pCO2 POC ABG pO2 ABG pO2 ABG HCO3 ABG Hemoglobin Oxyhemoglobin Sodium Potassium 5.3 H Chloride 97.4 L Carbon Dioxide 19 L BUN 93 H Creatinine 2.6 H Glucose POC Glucose Lactic Acid Calcium Phosphorus Magnesium Direct Bilirubin AST ALT Alkaline Phosphatase Lactate Dehydrogenase Troponin T C-Reactive Protein Total Protein Albumin Prealbumin Triglycerides Cholesterol LDL Cholesterol Direct HDL Cholesterol Urine pH Urine WBC (Auto) Urine Creatinine Urine Total Protein Fluid Total Protein Vancomycin Trough Rheumatoid Factor Complement C4 Miscellaneous Test Crossmatch 10/30/16 10/30/16 10/31/16 17:11 23:56 00:40 WBC RBC Hgb Hct MCV MCH MCHC RDW Plt Count Lymph % (Auto) [place] % (Auto) Lymph # [place] # Baso # Seg Neutrophils % Seg Neuts % (Manual) Lymphocytes % (Manual) Monocytes % (Manual) Eosinophils % (Manual) Basophils % (Manual) Nucleated RBC % Seg Neutrophils # Seg Neutrophils # Man Lymphocytes # (Manual) Monocytes # (Manual) Eosinophils # (Manual) PT INR Fibrinogen dRVVT Confirm Interp Factor V Activity POC ABG pH POC ABG pCO2 POC ABG pO2 ABG pO2 ABG HCO3 ABG Hemoglobin Oxyhemoglobin Sodium Potassium Chloride Carbon Dioxide BUN Creatinine Glucose POC Glucose 106 H 117 H 120 H Lactic Acid Calcium Phosphorus Magnesium Direct Bilirubin AST ALT Alkaline Phosphatase Lactate Dehydrogenase Troponin T C-Reactive Protein Total Protein Albumin Prealbumin Triglycerides Cholesterol LDL Cholesterol Direct HDL Cholesterol Urine pH Urine WBC (Auto) Urine Creatinine Urine Total Protein Fluid Total Protein Vancomycin Trough Rheumatoid Factor Complement C4 Miscellaneous Test Crossmatch 10/31/16 10/31/16 10/31/16 05:43 07:15 07:15 WBC 12.1 H RBC 2.63 L Hgb 7.7 L Hct 23.3 L MCV MCH MCHC RDW 16.7 H Plt Count Lymph % (Auto) 11.7 L [place] % (Auto) 7.7 H Lymph # [place] # 0.9 H Baso # Seg Neutrophils % 78.0 H Seg Neuts % (Manual) Lymphocytes % (Manual) Monocytes % (Manual) Eosinophils % (Manual) Basophils % (Manual) Nucleated RBC % Seg Neutrophils # 9.4 H Seg Neutrophils # Man Lymphocytes # (Manual) Monocytes # (Manual) Eosinophils # (Manual) PT INR Fibrinogen dRVVT Confirm Interp Factor V Activity POC ABG pH POC ABG pCO2 POC ABG pO2 ABG pO2 ABG HCO3 ABG Hemoglobin Oxyhemoglobin Sodium Potassium Chloride 96.4 L Carbon Dioxide 21 L BUN 99 H Creatinine 2.6 H Glucose 144 H POC Glucose 125 H Lactic Acid Calcium Phosphorus 4.80 H Magnesium Direct Bilirubin AST ALT Alkaline Phosphatase Lactate Dehydrogenase Troponin T C-Reactive Protein Total Protein Albumin Prealbumin Triglycerides Cholesterol LDL Cholesterol Direct HDL Cholesterol Urine pH Urine WBC (Auto) Urine Creatinine Urine Total Protein Fluid Total Protein Vancomycin Trough Rheumatoid Factor Complement C4 Miscellaneous Test Crossmatch 10/31/16 10/31/16 11/01/16 11:46 18:34 00:20 WBC RBC Hgb Hct MCV MCH MCHC RDW Plt Count Lymph % (Auto) [place] % (Auto) Lymph # [place] # Baso # Seg Neutrophils % Seg Neuts % (Manual) Lymphocytes % (Manual) Monocytes % (Manual) Eosinophils % (Manual) Basophils % (Manual) Nucleated RBC % Seg Neutrophils # Seg Neutrophils # Man Lymphocytes # (Manual) Monocytes # (Manual) Eosinophils # (Manual) PT INR Fibrinogen dRVVT Confirm Interp Factor V Activity POC ABG pH POC ABG pCO2 POC ABG pO2 ABG pO2 ABG HCO3 ABG Hemoglobin Oxyhemoglobin Sodium Potassium Chloride Carbon Dioxide BUN Creatinine Glucose POC Glucose 159 H 140 H 132 H Lactic Acid Calcium Phosphorus Magnesium Direct Bilirubin AST ALT Alkaline Phosphatase Lactate Dehydrogenase Troponin T C-Reactive Protein Total Protein Albumin Prealbumin Triglycerides Cholesterol LDL Cholesterol Direct HDL Cholesterol Urine pH Urine WBC (Auto) Urine Creatinine Urine Total Protein Fluid Total Protein Vancomycin Trough Rheumatoid Factor Complement C4 Miscellaneous Test Crossmatch 11/01/16 11/01/16 11/01/16 04:55 04:55 06:11 WBC 11.2 H RBC 2.68 L Hgb 7.5 L Hct 23.7 L MCV MCH MCHC RDW 16.1 H Plt Count Lymph % (Auto) [place] % (Auto) 9.8 H Lymph # [place] # 1.1 H Baso # Seg Neutrophils % 70.8 H Seg Neuts % (Manual) Lymphocytes % (Manual) Monocytes % (Manual) Eosinophils % (Manual) Basophils % (Manual) Nucleated RBC % Seg Neutrophils # 7.9 H Seg Neutrophils # Man Lymphocytes # (Manual) Monocytes # (Manual) Eosinophils # (Manual) PT INR Fibrinogen dRVVT Confirm Interp Factor V Activity POC ABG pH POC ABG pCO2 POC ABG pO2 ABG pO2 ABG HCO3 ABG Hemoglobin Oxyhemoglobin Sodium Potassium 3.3 L D Chloride Carbon Dioxide BUN 61 H Creatinine 1.9 H Glucose 114 H POC Glucose 115 H Lactic Acid Calcium Phosphorus 1.80 L D Magnesium Direct Bilirubin AST ALT Alkaline Phosphatase Lactate Dehydrogenase Troponin T C-Reactive Protein Total Protein Albumin Prealbumin Triglycerides Cholesterol LDL Cholesterol Direct HDL Cholesterol Urine pH Urine WBC (Auto) Urine Creatinine Urine Total Protein Fluid Total Protein Vancomycin Trough Rheumatoid Factor Complement C4 Miscellaneous Test Crossmatch 11/01/16 11/01/16 11/01/16 12:29 18:23 23:58 WBC RBC Hgb Hct MCV MCH MCHC RDW Plt Count Lymph % (Auto) [place] % (Auto) Lymph # [place] # Baso # Seg Neutrophils % Seg Neuts % (Manual) Lymphocytes % (Manual) Monocytes % (Manual) Eosinophils % (Manual) Basophils % (Manual) Nucleated RBC % Seg Neutrophils # Seg Neutrophils # Man Lymphocytes # (Manual) Monocytes # (Manual) Eosinophils # (Manual) PT INR Fibrinogen dRVVT Confirm Interp Factor V Activity POC ABG pH POC ABG pCO2 POC ABG pO2 ABG pO2 ABG HCO3 ABG Hemoglobin Oxyhemoglobin Sodium Potassium Chloride Carbon Dioxide BUN Creatinine Glucose POC Glucose 142 H 143 H 128 H Lactic Acid Calcium Phosphorus Magnesium Direct Bilirubin AST ALT Alkaline Phosphatase Lactate Dehydrogenase Troponin T C-Reactive Protein Total Protein Albumin Prealbumin Triglycerides Cholesterol LDL Cholesterol Direct HDL Cholesterol Urine pH Urine WBC (Auto) Urine Creatinine Urine Total Protein Fluid Total Protein Vancomycin Trough Rheumatoid Factor Complement C4 Miscellaneous Test Crossmatch 11/02/16 11/02/16 11/02/16 04:16 05:29 11:58 WBC RBC Hgb Hct MCV MCH MCHC RDW Plt Count Lymph % (Auto) [place] % (Auto) Lymph # [place] # Baso # Seg Neutrophils % Seg Neuts % (Manual) Lymphocytes % (Manual) Monocytes % (Manual) Eosinophils % (Manual) Basophils % (Manual) Nucleated RBC % Seg Neutrophils # Seg Neutrophils # Man Lymphocytes # (Manual) Monocytes # (Manual) Eosinophils # (Manual) PT INR Fibrinogen dRVVT Confirm Interp Factor V Activity POC ABG pH POC ABG pCO2 POC ABG pO2 ABG pO2 ABG HCO3 ABG Hemoglobin Oxyhemoglobin Sodium Potassium 3.1 L Chloride Carbon Dioxide BUN 73 H Creatinine 2.3 H Glucose 112 H POC Glucose 135 H 149 H Lactic Acid Calcium Phosphorus Magnesium Direct Bilirubin AST ALT Alkaline Phosphatase Lactate Dehydrogenase Troponin T C-Reactive Protein Total Protein Albumin Prealbumin Triglycerides Cholesterol LDL Cholesterol Direct HDL Cholesterol Urine pH Urine WBC (Auto) Urine Creatinine Urine Total Protein Fluid Total Protein Vancomycin Trough Rheumatoid Factor Complement C4 Miscellaneous Test Crossmatch 11/02/16 11/02/16 11/03/16 17:42 22:54 06:00 WBC RBC Hgb Hct MCV MCH MCHC RDW Plt Count Lymph % (Auto) [place] % (Auto) Lymph # [place] # Baso # Seg Neutrophils % Seg Neuts % (Manual) Lymphocytes % (Manual) Monocytes % (Manual) Eosinophils % (Manual) Basophils % (Manual) Nucleated RBC % Seg Neutrophils # Seg Neutrophils # Man Lymphocytes # (Manual) Monocytes # (Manual) Eosinophils # (Manual) PT INR Fibrinogen dRVVT Confirm Interp Factor V Activity POC ABG pH POC ABG pCO2 POC ABG pO2 ABG pO2 ABG HCO3 ABG Hemoglobin Oxyhemoglobin Sodium Potassium Chloride 96.7 L Carbon Dioxide BUN 41 H Creatinine 1.5 H Glucose 145 H POC Glucose 182 H 115 H Lactic Acid Calcium Phosphorus 1.60 L D Magnesium 1.50 L Direct Bilirubin AST ALT Alkaline Phosphatase Lactate Dehydrogenase Troponin T C-Reactive Protein Total Protein Albumin Prealbumin Triglycerides Cholesterol LDL Cholesterol Direct HDL Cholesterol Urine pH Urine WBC (Auto) Urine Creatinine Urine Total Protein Fluid Total Protein Vancomycin Trough Rheumatoid Factor Complement C4 Miscellaneous Test Crossmatch 11/03/16 11/03/16 11/03/16 11:53 17:45 23:37 WBC RBC Hgb Hct MCV MCH MCHC RDW Plt Count Lymph % (Auto) [place] % (Auto) Lymph # [place] # Baso # Seg Neutrophils % Seg Neuts % (Manual) Lymphocytes % (Manual) Monocytes % (Manual) Eosinophils % (Manual) Basophils % (Manual) Nucleated RBC % Seg Neutrophils # Seg Neutrophils # Man Lymphocytes # (Manual) Monocytes # (Manual) Eosinophils # (Manual) PT INR Fibrinogen dRVVT Confirm Interp Factor V Activity POC ABG pH POC ABG pCO2 POC ABG pO2 ABG pO2 ABG HCO3 ABG Hemoglobin Oxyhemoglobin Sodium Potassium Chloride Carbon Dioxide BUN Creatinine Glucose POC Glucose 131 H 134 H 113 H Lactic Acid Calcium Phosphorus Magnesium Direct Bilirubin AST ALT Alkaline Phosphatase Lactate Dehydrogenase Troponin T C-Reactive Protein Total Protein Albumin Prealbumin Triglycerides Cholesterol LDL Cholesterol Direct HDL Cholesterol Urine pH Urine WBC (Auto) Urine Creatinine Urine Total Protein Fluid Total Protein Vancomycin Trough Rheumatoid Factor Complement C4 Miscellaneous Test Crossmatch 11/04/16 11/04/16 11/04/16 05:41 06:00 12:10 WBC RBC Hgb Hct MCV MCH MCHC RDW Plt Count Lymph % (Auto) [place] % (Auto) Lymph # [place] # Baso # Seg Neutrophils % Seg Neuts % (Manual) Lymphocytes % (Manual) Monocytes % (Manual) Eosinophils % (Manual) Basophils % (Manual) Nucleated RBC % Seg Neutrophils # Seg Neutrophils # Man Lymphocytes # (Manual) Monocytes # (Manual) Eosinophils # (Manual) PT INR Fibrinogen dRVVT Confirm Interp Factor V Activity POC ABG pH POC ABG pCO2 POC ABG pO2 ABG pO2 ABG HCO3 ABG Hemoglobin Oxyhemoglobin Sodium Potassium Chloride 96.7 L Carbon Dioxide BUN 52 H Creatinine 1.9 H Glucose 126 H POC Glucose 137 H 191 H Lactic Acid Calcium Phosphorus Magnesium Direct Bilirubin AST ALT Alkaline Phosphatase Lactate Dehydrogenase Troponin T C-Reactive Protein Total Protein Albumin Prealbumin Triglycerides Cholesterol LDL Cholesterol Direct HDL Cholesterol Urine pH Urine WBC (Auto) Urine Creatinine Urine Total Protein Fluid Total Protein Vancomycin Trough Rheumatoid Factor Complement C4 Miscellaneous Test Crossmatch 11/04/16 11/05/16 11/05/16 22:57 03:10 05:10 WBC RBC Hgb Hct MCV MCH MCHC RDW Plt Count Lymph % (Auto) [place] % (Auto) Lymph # [place] # Baso # Seg Neutrophils % Seg Neuts % (Manual) Lymphocytes % (Manual) Monocytes % (Manual) Eosinophils % (Manual) Basophils % (Manual) Nucleated RBC % Seg Neutrophils # Seg Neutrophils # Man Lymphocytes # (Manual) Monocytes # (Manual) Eosinophils # (Manual) PT INR Fibrinogen dRVVT Confirm Interp Factor V Activity POC ABG pH POC ABG pCO2 POC ABG pO2 ABG pO2 ABG HCO3 ABG Hemoglobin Oxyhemoglobin Sodium 136 L Potassium Chloride 97.2 L Carbon Dioxide BUN 32 H Creatinine 1.3 H Glucose 123 H POC Glucose 125 H 108 H Lactic Acid Calcium 7.8 L Phosphorus Magnesium Direct Bilirubin AST ALT Alkaline Phosphatase Lactate Dehydrogenase Troponin T C-Reactive Protein Total Protein Albumin Prealbumin Triglycerides Cholesterol LDL Cholesterol Direct HDL Cholesterol Urine pH Urine WBC (Auto) Urine Creatinine Urine Total Protein Fluid Total Protein Vancomycin Trough Rheumatoid Factor Complement C4 Miscellaneous Test Crossmatch 11/05/16 11/05/16 11/05/16 12:23 13:09 13:25 WBC RBC Hgb Hct MCV MCH MCHC RDW Plt Count Lymph % (Auto) [place] % (Auto) Lymph # [place] # Baso # Seg Neutrophils % Seg Neuts % (Manual) Lymphocytes % (Manual) Monocytes % (Manual) Eosinophils % (Manual) Basophils % (Manual) Nucleated RBC % Seg Neutrophils # Seg Neutrophils # Man Lymphocytes # (Manual) Monocytes # (Manual) Eosinophils # (Manual) PT INR Fibrinogen dRVVT Confirm Interp Factor V Activity POC ABG pH POC ABG pCO2 POC ABG pO2 ABG pO2 ABG HCO3 ABG Hemoglobin Oxyhemoglobin Sodium Potassium Chloride Carbon Dioxide BUN Creatinine Glucose POC Glucose 124 H Lactic Acid Calcium Phosphorus Magnesium Direct Bilirubin AST ALT Alkaline Phosphatase Lactate Dehydrogenase Troponin T C-Reactive Protein 11.40 H Total Protein Albumin Prealbumin Triglycerides Cholesterol LDL Cholesterol Direct HDL Cholesterol Urine pH 9.0 H Urine WBC (Auto) Urine Creatinine Urine Total Protein Fluid Total Protein Vancomycin Trough Rheumatoid Factor Complement C4 Miscellaneous Test Crossmatch 11/05/16 11/05/16 11/05/16 13:25 17:54 23:42 WBC RBC Hgb Hct MCV MCH MCHC RDW Plt Count Lymph % (Auto) [place] % (Auto) Lymph # [place] # Baso # Seg Neutrophils % Seg Neuts % (Manual) Lymphocytes % (Manual) Monocytes % (Manual) Eosinophils % (Manual) Basophils % (Manual) Nucleated RBC % Seg Neutrophils # Seg Neutrophils # Man Lymphocytes # (Manual) Monocytes # (Manual) Eosinophils # (Manual) PT INR Fibrinogen dRVVT Confirm Interp Factor V Activity POC ABG pH POC ABG pCO2 POC ABG pO2 ABG pO2 ABG HCO3 ABG Hemoglobin Oxyhemoglobin Sodium Potassium Chloride Carbon Dioxide BUN Creatinine Glucose POC Glucose 114 H 134 H Lactic Acid Calcium Phosphorus Magnesium Direct Bilirubin AST ALT Alkaline Phosphatase Lactate Dehydrogenase Troponin T C-Reactive Protein Total Protein Albumin Prealbumin Triglycerides Cholesterol LDL Cholesterol Direct HDL Cholesterol Urine pH Urine WBC (Auto) Urine Creatinine Urine Total Protein Fluid Total Protein Vancomycin Trough Rheumatoid Factor Complement C4 Miscellaneous Test Flexitest 1 H Crossmatch 11/06/16 11/06/16 11/06/16 04:56 06:25 06:25 WBC RBC 2.50 L Hgb 7.3 L Hct 22.5 L MCV MCH MCHC RDW 16.9 H Plt Count Lymph % (Auto) [place] % (Auto) 10.5 H Lymph # [place] # 1.1 H Baso # Seg Neutrophils % Seg Neuts % (Manual) Lymphocytes % (Manual) Monocytes % (Manual) Eosinophils % (Manual) Basophils % (Manual) Nucleated RBC % Seg Neutrophils # Seg Neutrophils # Man Lymphocytes # (Manual) Monocytes # (Manual) Eosinophils # (Manual) PT INR Fibrinogen dRVVT Confirm Interp Factor V Activity POC ABG pH POC ABG pCO2 POC ABG pO2 ABG pO2 ABG HCO3 ABG Hemoglobin Oxyhemoglobin Sodium Potassium 5.1 H Chloride 95.9 L Carbon Dioxide BUN 52 H Creatinine 1.8 H Glucose 117 H POC Glucose 120 H Lactic Acid Calcium Phosphorus Magnesium Direct Bilirubin AST 103 H ALT 77 H Alkaline Phosphatase 285 H Lactate Dehydrogenase Troponin T C-Reactive Protein Total Protein 6.2 L Albumin 1.8 L Prealbumin 0.180 L Triglycerides Cholesterol LDL Cholesterol Direct HDL Cholesterol Urine pH Urine WBC (Auto) Urine Creatinine Urine Total Protein Fluid Total Protein Vancomycin Trough Rheumatoid Factor Complement C4 Miscellaneous Test Crossmatch 11/06/16 11/06/16 11/06/16 11:56 17:14 23:52 WBC RBC Hgb Hct MCV MCH MCHC RDW Plt Count Lymph % (Auto) [place] % (Auto) Lymph # [place] # Baso # Seg Neutrophils % Seg Neuts % (Manual) Lymphocytes % (Manual) Monocytes % (Manual) Eosinophils % (Manual) Basophils % (Manual) Nucleated RBC % Seg Neutrophils # Seg Neutrophils # Man Lymphocytes # (Manual) Monocytes # (Manual) Eosinophils # (Manual) PT INR Fibrinogen dRVVT Confirm Interp Factor V Activity POC ABG pH POC ABG pCO2 POC ABG pO2 ABG pO2 ABG HCO3 ABG Hemoglobin Oxyhemoglobin Sodium Potassium Chloride Carbon Dioxide BUN Creatinine Glucose POC Glucose 141 H 125 H 130 H Lactic Acid Calcium Phosphorus Magnesium Direct Bilirubin AST ALT Alkaline Phosphatase Lactate Dehydrogenase Troponin T C-Reactive Protein Total Protein Albumin Prealbumin Triglycerides Cholesterol LDL Cholesterol Direct HDL Cholesterol Urine pH Urine WBC (Auto) Urine Creatinine Urine Total Protein Fluid Total Protein Vancomycin Trough Rheumatoid Factor Complement C4 Miscellaneous Test Crossmatch 11/07/16 11/07/16 11/07/16 06:30 06:30 09:37 WBC RBC 2.18 L Hgb 6.3 L Hct 19.7 L* MCV MCH MCHC RDW 16.8 H Plt Count Lymph % (Auto) [place] % (Auto) 10.0 H Lymph # [place] # 1.0 H Baso # Seg Neutrophils % Seg Neuts % (Manual) Lymphocytes % (Manual) Monocytes % (Manual) Eosinophils % (Manual) Basophils % (Manual) Nucleated RBC % Seg Neutrophils # Seg Neutrophils # Man Lymphocytes # (Manual) Monocytes # (Manual) Eosinophils # (Manual) PT INR Fibrinogen dRVVT Confirm Interp Factor V Activity POC ABG pH POC ABG pCO2 POC ABG pO2 ABG pO2 ABG HCO3 ABG Hemoglobin Oxyhemoglobin Sodium 135 L Potassium Chloride 95.6 L Carbon Dioxide BUN 70 H Creatinine 2.0 H Glucose 126 H POC Glucose Lactic Acid Calcium Phosphorus Magnesium Direct Bilirubin AST ALT Alkaline Phosphatase Lactate Dehydrogenase Troponin T C-Reactive Protein Total Protein Albumin Prealbumin Triglycerides Cholesterol LDL Cholesterol Direct HDL Cholesterol Urine pH Urine WBC (Auto) Urine Creatinine Urine Total Protein Fluid Total Protein Vancomycin Trough Rheumatoid Factor Complement C4 Miscellaneous Test Crossmatch See Detail 11/07/16 11/07/16 11/07/16 12:52 18:51 21:26 WBC RBC Hgb Hct MCV MCH MCHC RDW Plt Count Lymph % (Auto) [place] % (Auto) Lymph # [place] # Baso # Seg Neutrophils % Seg Neuts % (Manual) Lymphocytes % (Manual) Monocytes % (Manual) Eosinophils % (Manual) Basophils % (Manual) Nucleated RBC % Seg Neutrophils # Seg Neutrophils # Man Lymphocytes # (Manual) Monocytes # (Manual) Eosinophils # (Manual) PT INR Fibrinogen dRVVT Confirm Interp Factor V Activity POC ABG pH 7.523 H POC ABG pCO2 34.6 L POC ABG pO2 53 L ABG pO2 ABG HCO3 ABG Hemoglobin Oxyhemoglobin Sodium Potassium Chloride Carbon Dioxide BUN Creatinine Glucose POC Glucose 142 H 155 H Lactic Acid Calcium Phosphorus Magnesium Direct Bilirubin AST ALT Alkaline Phosphatase Lactate Dehydrogenase Troponin T C-Reactive Protein Total Protein Albumin Prealbumin Triglycerides Cholesterol LDL Cholesterol Direct HDL Cholesterol Urine pH Urine WBC (Auto) Urine Creatinine Urine Total Protein Fluid Total Protein Vancomycin Trough Rheumatoid Factor Complement C4 Miscellaneous Test Crossmatch 11/07/16 11/08/16 11/08/16 21:34 13:03 23:37 WBC RBC 2.63 L Hgb 7.7 L Hct 22.7 L MCV MCH MCHC RDW 17.0 H Plt Count Lymph % (Auto) [place] % (Auto) Lymph # [place] # Baso # Seg Neutrophils % Seg Neuts % (Manual) Lymphocytes % (Manual) Monocytes % (Manual) Eosinophils % (Manual) Basophils % (Manual) Nucleated RBC % Seg Neutrophils # Seg Neutrophils # Man Lymphocytes # (Manual) Monocytes # (Manual) Eosinophils # (Manual) PT INR Fibrinogen dRVVT Confirm Interp Factor V Activity POC ABG pH 7.478 H POC ABG pCO2 34.0 L POC ABG pO2 50 L ABG pO2 ABG HCO3 ABG Hemoglobin Oxyhemoglobin Sodium Potassium Chloride Carbon Dioxide BUN Creatinine Glucose POC Glucose 113 H Lactic Acid Calcium Phosphorus Magnesium Direct Bilirubin AST ALT Alkaline Phosphatase Lactate Dehydrogenase Troponin T C-Reactive Protein Total Protein Albumin Prealbumin Triglycerides Cholesterol LDL Cholesterol Direct HDL Cholesterol Urine pH Urine WBC (Auto) Urine Creatinine Urine Total Protein Fluid Total Protein Vancomycin Trough Rheumatoid Factor Complement C4 Miscellaneous Test Crossmatch 11/09/16 11/09/16 11/09/16 04:35 10:15 18:21 WBC RBC 2.68 L Hgb 7.8 L Hct 23.3 L MCV MCH MCHC RDW 17.0 H Plt Count Lymph % (Auto) [place] % (Auto) 12.1 H Lymph # [place] # 1.1 H Baso # Seg Neutrophils % Seg Neuts % (Manual) Lymphocytes % (Manual) Monocytes % (Manual) Eosinophils % (Manual) Basophils % (Manual) Nucleated RBC % Seg Neutrophils # Seg Neutrophils # Man Lymphocytes # (Manual) Monocytes # (Manual) Eosinophils # (Manual) PT INR Fibrinogen dRVVT Confirm Interp Factor V Activity POC ABG pH POC ABG pCO2 POC ABG pO2 ABG pO2 ABG HCO3 ABG Hemoglobin Oxyhemoglobin Sodium Potassium Chloride Carbon Dioxide BUN 51 H Creatinine 1.8 H Glucose POC Glucose 60 L Lactic Acid Calcium 8.3 L Phosphorus Magnesium Direct Bilirubin AST ALT Alkaline Phosphatase Lactate Dehydrogenase Troponin T C-Reactive Protein Total Protein Albumin Prealbumin Triglycerides Cholesterol LDL Cholesterol Direct HDL Cholesterol Urine pH Urine WBC (Auto) Urine Creatinine Urine Total Protein Fluid Total Protein Vancomycin Trough Rheumatoid Factor Complement C4 Miscellaneous Test Crossmatch 11/09/16 11/10/16 11/10/16 18:55 07:00 11:51 WBC RBC Hgb Hct MCV MCH MCHC RDW Plt Count Lymph % (Auto) [place] % (Auto) Lymph # [place] # Baso # Seg Neutrophils % Seg Neuts % (Manual) Lymphocytes % (Manual) Monocytes % (Manual) Eosinophils % (Manual) Basophils % (Manual) Nucleated RBC % Seg Neutrophils # Seg Neutrophils # Man Lymphocytes # (Manual) Monocytes # (Manual) Eosinophils # (Manual) PT INR Fibrinogen dRVVT Confirm Interp Factor V Activity POC ABG pH POC ABG pCO2 POC ABG pO2 ABG pO2 ABG HCO3 ABG Hemoglobin Oxyhemoglobin Sodium Potassium 3.0 L D Chloride 97.4 L Carbon Dioxide BUN 28 H Creatinine 1.3 H Glucose POC Glucose 68 L 120 H Lactic Acid Calcium 7.8 L Phosphorus Magnesium Direct Bilirubin AST ALT Alkaline Phosphatase Lactate Dehydrogenase Troponin T C-Reactive Protein Total Protein Albumin Prealbumin Triglycerides Cholesterol LDL Cholesterol Direct HDL Cholesterol Urine pH Urine WBC (Auto) Urine Creatinine Urine Total Protein Fluid Total Protein Vancomycin Trough Rheumatoid Factor Complement C4 Miscellaneous Test Crossmatch 11/10/16 11/11/16 11/11/16 14:20 06:59 06:59 WBC RBC 2.81 L Hgb 8.1 L Hct 24.4 L MCV MCH MCHC RDW 16.4 H Plt Count Lymph % (Auto) [place] % (Auto) 10.8 H Lymph # [place] # 1.0 H Baso # Seg Neutrophils % Seg Neuts % (Manual) Lymphocytes % (Manual) Monocytes % (Manual) Eosinophils % (Manual) Basophils % (Manual) Nucleated RBC % Seg Neutrophils # Seg Neutrophils # Man Lymphocytes # (Manual) Monocytes # (Manual) Eosinophils # (Manual) PT INR Fibrinogen dRVVT Confirm Interp Factor V Activity POC ABG pH POC ABG pCO2 POC ABG pO2 ABG pO2 ABG HCO3 ABG Hemoglobin Oxyhemoglobin Sodium Potassium Chloride Carbon Dioxide BUN Creatinine Glucose POC Glucose Lactic Acid Calcium Phosphorus Magnesium Direct Bilirubin AST ALT Alkaline Phosphatase Lactate Dehydrogenase 196 H Troponin T C-Reactive Protein Total Protein 6.1 L Albumin Prealbumin Triglycerides Cholesterol LDL Cholesterol Direct HDL Cholesterol Urine pH Urine WBC (Auto) Urine Creatinine Urine Total Protein Fluid Total Protein < 3.0 L Vancomycin Trough Rheumatoid Factor Complement C4 Miscellaneous Test Crossmatch 11/11/16 11/11/16 11/12/16 06:59 09:50 04:00 WBC RBC Hgb Hct MCV MCH MCHC RDW Plt Count Lymph % (Auto) [place] % (Auto) Lymph # [place] # Baso # Seg Neutrophils % Seg Neuts % (Manual) Lymphocytes % (Manual) Monocytes % (Manual) Eosinophils % (Manual) Basophils % (Manual) Nucleated RBC % Seg Neutrophils # Seg Neutrophils # Man Lymphocytes # (Manual) Monocytes # (Manual) Eosinophils # (Manual) PT INR 1.18 H Fibrinogen dRVVT Confirm Interp Factor V Activity POC ABG pH POC ABG pCO2 POC ABG pO2 ABG pO2 ABG HCO3 ABG Hemoglobin Oxyhemoglobin Sodium 136 L 133 L Potassium Chloride 96.1 L 94.8 L Carbon Dioxide 21 L BUN 37 H 42 H Creatinine 1.8 H 2.0 H Glucose POC Glucose Lactic Acid Calcium Phosphorus Magnesium Direct Bilirubin AST ALT Alkaline Phosphatase Lactate Dehydrogenase Troponin T C-Reactive Protein Total Protein Albumin Prealbumin Triglycerides Cholesterol LDL Cholesterol Direct HDL Cholesterol Urine pH Urine WBC (Auto) Urine Creatinine Urine Total Protein Fluid Total Protein Vancomycin Trough Rheumatoid Factor Complement C4 Miscellaneous Test Crossmatch 11/12/16 11/12/16 11/13/16 04:00 23:55 05:53 WBC RBC Hgb 8.9 L Hct 27.2 L MCV MCH MCHC RDW Plt Count Lymph % (Auto) [place] % (Auto) Lymph # [place] # Baso # Seg Neutrophils % Seg Neuts % (Manual) Lymphocytes % (Manual) Monocytes % (Manual) Eosinophils % (Manual) Basophils % (Manual) Nucleated RBC % Seg Neutrophils # Seg Neutrophils # Man Lymphocytes # (Manual) Monocytes # (Manual) Eosinophils # (Manual) PT INR Fibrinogen dRVVT Confirm Interp Factor V Activity POC ABG pH POC ABG pCO2 POC ABG pO2 ABG pO2 ABG HCO3 ABG Hemoglobin Oxyhemoglobin Sodium Potassium Chloride Carbon Dioxide BUN Creatinine Glucose POC Glucose 132 H 120 H Lactic Acid Calcium Phosphorus Magnesium Direct Bilirubin AST ALT Alkaline Phosphatase Lactate Dehydrogenase Troponin T C-Reactive Protein Total Protein Albumin Prealbumin Triglycerides Cholesterol LDL Cholesterol Direct HDL Cholesterol Urine pH Urine WBC (Auto) Urine Creatinine Urine Total Protein Fluid Total Protein Vancomycin Trough Rheumatoid Factor Complement C4 Miscellaneous Test Crossmatch 11/13/16 11/13/16 11/13/16 11:43 17:09 23:41 WBC RBC Hgb Hct MCV MCH MCHC RDW Plt Count Lymph % (Auto) [place] % (Auto) Lymph # [place] # Baso # Seg Neutrophils % Seg Neuts % (Manual) Lymphocytes % (Manual) Monocytes % (Manual) Eosinophils % (Manual) Basophils % (Manual) Nucleated RBC % Seg Neutrophils # Seg Neutrophils # Man Lymphocytes # (Manual) Monocytes # (Manual) Eosinophils # (Manual) PT INR Fibrinogen dRVVT Confirm Interp Factor V Activity POC ABG pH POC ABG pCO2 POC ABG pO2 ABG pO2 ABG HCO3 ABG Hemoglobin Oxyhemoglobin Sodium Potassium Chloride Carbon Dioxide BUN Creatinine Glucose POC Glucose 114 H 113 H 108 H Lactic Acid Calcium Phosphorus Magnesium Direct Bilirubin AST ALT Alkaline Phosphatase Lactate Dehydrogenase Troponin T C-Reactive Protein Total Protein Albumin Prealbumin Triglycerides Cholesterol LDL Cholesterol Direct HDL Cholesterol Urine pH Urine WBC (Auto) Urine Creatinine Urine Total Protein Fluid Total Protein Vancomycin Trough Rheumatoid Factor Complement C4 Miscellaneous Test Crossmatch 11/13/16 11/15/16 11/15/16 Unknown 00:37 03:30 WBC 11.2 H RBC 2.72 L Hgb 7.6 L Hct 23.4 L MCV MCH MCHC RDW 16.5 H Plt Count Lymph % (Auto) [place] % (Auto) Lymph # [place] # Baso # Seg Neutrophils % Seg Neuts % (Manual) Lymphocytes % (Manual) Monocytes % (Manual) Eosinophils % (Manual) Basophils % (Manual) Nucleated RBC % Seg Neutrophils # Seg Neutrophils # Man Lymphocytes # (Manual) Monocytes # (Manual) Eosinophils # (Manual) PT INR Fibrinogen dRVVT Confirm Interp Factor V Activity POC ABG pH POC ABG pCO2 POC ABG pO2 ABG pO2 ABG HCO3 ABG Hemoglobin Oxyhemoglobin Sodium 135 L Potassium Chloride 95.2 L Carbon Dioxide BUN 52 H Creatinine 2.2 H Glucose POC Glucose 108 H Lactic Acid Calcium Phosphorus Magnesium Direct Bilirubin AST ALT Alkaline Phosphatase Lactate Dehydrogenase Troponin T C-Reactive Protein Total Protein Albumin Prealbumin Triglycerides Cholesterol LDL Cholesterol Direct HDL Cholesterol Urine pH Urine WBC (Auto) Urine Creatinine Urine Total Protein Fluid Total Protein Vancomycin Trough Rheumatoid Factor Complement C4 Miscellaneous Test Crossmatch 11/15/16 11/15/16 11/15/16 03:30 05:04 11:50 WBC RBC Hgb Hct MCV MCH MCHC RDW Plt Count Lymph % (Auto) [place] % (Auto) Lymph # [place] # Baso # Seg Neutrophils % Seg Neuts % (Manual) Lymphocytes % (Manual) Monocytes % (Manual) Eosinophils % (Manual) Basophils % (Manual) Nucleated RBC % Seg Neutrophils # Seg Neutrophils # Man Lymphocytes # (Manual) Monocytes # (Manual) Eosinophils # (Manual) PT INR Fibrinogen dRVVT Confirm Interp Factor V Activity POC ABG pH POC ABG pCO2 POC ABG pO2 ABG pO2 ABG HCO3 ABG Hemoglobin Oxyhemoglobin Sodium Potassium 3.4 L Chloride Carbon Dioxide BUN 25 H Creatinine 1.5 H Glucose 103 H POC Glucose 121 H 144 H Lactic Acid Calcium Phosphorus Magnesium Direct Bilirubin AST ALT Alkaline Phosphatase Lactate Dehydrogenase Troponin T C-Reactive Protein Total Protein Albumin Prealbumin Triglycerides Cholesterol LDL Cholesterol Direct HDL Cholesterol Urine pH Urine WBC (Auto) Urine Creatinine Urine Total Protein Fluid Total Protein Vancomycin Trough Rheumatoid Factor Complement C4 Miscellaneous Test Crossmatch 11/15/16 11/15/16 11/16/16 21:28 23:20 11:44 WBC RBC Hgb Hct MCV MCH MCHC RDW Plt Count Lymph % (Auto) [place] % (Auto) Lymph # [place] # Baso # Seg Neutrophils % Seg Neuts % (Manual) Lymphocytes % (Manual) Monocytes % (Manual) Eosinophils % (Manual) Basophils % (Manual) Nucleated RBC % Seg Neutrophils # Seg Neutrophils # Man Lymphocytes # (Manual) Monocytes # (Manual) Eosinophils # (Manual) PT INR Fibrinogen dRVVT Confirm Interp Factor V Activity POC ABG pH 7.462 H POC ABG pCO2 POC ABG pO2 71 L ABG pO2 ABG HCO3 ABG Hemoglobin Oxyhemoglobin Sodium Potassium Chloride Carbon Dioxide BUN Creatinine Glucose POC Glucose 116 H 133 H Lactic Acid Calcium Phosphorus Magnesium Direct Bilirubin AST ALT Alkaline Phosphatase Lactate Dehydrogenase Troponin T C-Reactive Protein Total Protein Albumin Prealbumin Triglycerides Cholesterol LDL Cholesterol Direct HDL Cholesterol Urine pH Urine WBC (Auto) Urine Creatinine Urine Total Protein Fluid Total Protein Vancomycin Trough Rheumatoid Factor Complement C4 Miscellaneous Test Crossmatch 11/16/16 11/16/16 11/16/16 12:20 17:05 23:35 WBC 11.7 H RBC 2.73 L Hgb 7.6 L Hct 23.7 L MCV MCH MCHC RDW 16.6 H Plt Count Lymph % (Auto) [place] % (Auto) Lymph # [place] # Baso # Seg Neutrophils % Seg Neuts % (Manual) Lymphocytes % (Manual) Monocytes % (Manual) Eosinophils % (Manual) Basophils % (Manual) Nucleated RBC % Seg Neutrophils # Seg Neutrophils # Man Lymphocytes # (Manual) Monocytes # (Manual) Eosinophils # (Manual) PT INR Fibrinogen dRVVT Confirm Interp Factor V Activity POC ABG pH POC ABG pCO2 POC ABG pO2 ABG pO2 ABG HCO3 ABG Hemoglobin Oxyhemoglobin Sodium Potassium Chloride Carbon Dioxide BUN Creatinine Glucose POC Glucose 154 H 125 H Lactic Acid Calcium Phosphorus Magnesium Direct Bilirubin AST ALT Alkaline Phosphatase Lactate Dehydrogenase Troponin T C-Reactive Protein Total Protein Albumin Prealbumin Triglycerides Cholesterol LDL Cholesterol Direct HDL Cholesterol Urine pH Urine WBC (Auto) Urine Creatinine Urine Total Protein Fluid Total Protein Vancomycin Trough Rheumatoid Factor Complement C4 Miscellaneous Test Crossmatch 11/17/16 11/17/16 11/17/16 03:20 03:20 03:20 WBC RBC 2.55 L Hgb 7.3 L Hct 21.9 L MCV MCH MCHC RDW 16.6 H Plt Count Lymph % (Auto) [place] % (Auto) 11.5 H Lymph # [place] # 1.1 H Baso # Seg Neutrophils % Seg Neuts % (Manual) Lymphocytes % (Manual) Monocytes % (Manual) Eosinophils % (Manual) Basophils % (Manual) Nucleated RBC % Seg Neutrophils # Seg Neutrophils # Man Lymphocytes # (Manual) Monocytes # (Manual) Eosinophils # (Manual) PT 16.8 H INR 1.37 H Fibrinogen dRVVT Confirm Interp Factor V Activity POC ABG pH POC ABG pCO2 POC ABG pO2 ABG pO2 ABG HCO3 ABG Hemoglobin Oxyhemoglobin Sodium Potassium 3.5 L Chloride Carbon Dioxide BUN 21 H Creatinine Glucose POC Glucose Lactic Acid Calcium 7.9 L Phosphorus Magnesium Direct Bilirubin AST ALT Alkaline Phosphatase Lactate Dehydrogenase Troponin T C-Reactive Protein Total Protein Albumin Prealbumin Triglycerides Cholesterol LDL Cholesterol Direct HDL Cholesterol Urine pH Urine WBC (Auto) Urine Creatinine Urine Total Protein Fluid Total Protein Vancomycin Trough Rheumatoid Factor Complement C4 Miscellaneous Test Crossmatch 11/17/16 11/17/16 11/17/16 06:34 11:21 21:22 WBC RBC Hgb Hct MCV MCH MCHC RDW Plt Count Lymph % (Auto) [place] % (Auto) Lymph # [place] # Baso # Seg Neutrophils % Seg Neuts % (Manual) Lymphocytes % (Manual) Monocytes % (Manual) Eosinophils % (Manual) Basophils % (Manual) Nucleated RBC % Seg Neutrophils # Seg Neutrophils # Man Lymphocytes # (Manual) Monocytes # (Manual) Eosinophils # (Manual) PT INR Fibrinogen dRVVT Confirm Interp Factor V Activity POC ABG pH 7.467 H POC ABG pCO2 POC ABG pO2 73 L ABG pO2 ABG HCO3 ABG Hemoglobin Oxyhemoglobin Sodium Potassium Chloride Carbon Dioxide BUN Creatinine Glucose POC Glucose 121 H 119 H Lactic Acid Calcium Phosphorus Magnesium Direct Bilirubin AST ALT Alkaline Phosphatase Lactate Dehydrogenase Troponin T C-Reactive Protein Total Protein Albumin Prealbumin Triglycerides Cholesterol LDL Cholesterol Direct HDL Cholesterol Urine pH Urine WBC (Auto) Urine Creatinine Urine Total Protein Fluid Total Protein Vancomycin Trough Rheumatoid Factor Complement C4 Miscellaneous Test Crossmatch 11/18/16 11/18/16 11/19/16 12:16 17:19 00:00 WBC RBC Hgb Hct MCV MCH MCHC RDW Plt Count Lymph % (Auto) [place] % (Auto) Lymph # [place] # Baso # Seg Neutrophils % Seg Neuts % (Manual) Lymphocytes % (Manual) Monocytes % (Manual) Eosinophils % (Manual) Basophils % (Manual) Nucleated RBC % Seg Neutrophils # Seg Neutrophils # Man Lymphocytes # (Manual) Monocytes # (Manual) Eosinophils # (Manual) PT INR Fibrinogen dRVVT Confirm Interp Factor V Activity POC ABG pH POC ABG pCO2 POC ABG pO2 ABG pO2 ABG HCO3 ABG Hemoglobin Oxyhemoglobin Sodium Potassium Chloride Carbon Dioxide BUN Creatinine Glucose POC Glucose 124 H 162 H 139 H Lactic Acid Calcium Phosphorus Magnesium Direct Bilirubin AST ALT Alkaline Phosphatase Lactate Dehydrogenase Troponin T C-Reactive Protein Total Protein Albumin Prealbumin Triglycerides Cholesterol LDL Cholesterol Direct HDL Cholesterol Urine pH Urine WBC (Auto) Urine Creatinine Urine Total Protein Fluid Total Protein Vancomycin Trough Rheumatoid Factor Complement C4 Miscellaneous Test Crossmatch 11/19/16 11/19/16 11/20/16 05:00 12:43 00:40 WBC RBC Hgb Hct MCV MCH MCHC RDW Plt Count Lymph % (Auto) [place] % (Auto) Lymph # [place] # Baso # Seg Neutrophils % Seg Neuts % (Manual) Lymphocytes % (Manual) Monocytes % (Manual) Eosinophils % (Manual) Basophils % (Manual) Nucleated RBC % Seg Neutrophils # Seg Neutrophils # Man Lymphocytes # (Manual) Monocytes # (Manual) Eosinophils # (Manual) PT INR Fibrinogen dRVVT Confirm Interp Factor V Activity POC ABG pH POC ABG pCO2 POC ABG pO2 ABG pO2 ABG HCO3 ABG Hemoglobin Oxyhemoglobin Sodium Potassium Chloride Carbon Dioxide BUN Creatinine Glucose POC Glucose 110 H 125 H 136 H Lactic Acid Calcium Phosphorus Magnesium Direct Bilirubin AST ALT Alkaline Phosphatase Lactate Dehydrogenase Troponin T C-Reactive Protein Total Protein Albumin Prealbumin Triglycerides Cholesterol LDL Cholesterol Direct HDL Cholesterol Urine pH Urine WBC (Auto) Urine Creatinine Urine Total Protein Fluid Total Protein Vancomycin Trough Rheumatoid Factor Complement C4 Miscellaneous Test Crossmatch 11/20/16 11/20/1617 05:00 05:00 05:51 WBC 13.1 H RBC 2.74 L Hgb 7.7 L Hct 23.6 L MCV MCH MCHC RDW 16.9 H Plt Count Lymph % (Auto) [place] % (Auto) 10.8 H Lymph # [place] # 1.4 H Baso # Seg Neutrophils % Seg Neuts % (Manual) Lymphocytes % (Manual) Monocytes % (Manual) Eosinophils % (Manual) Basophils % (Manual) Nucleated RBC % Seg Neutrophils # 7.9 H Seg Neutrophils # Man Lymphocytes # (Manual) Monocytes # (Manual) Eosinophils # (Manual) PT INR Fibrinogen dRVVT Confirm Interp Factor V Activity POC ABG pH POC ABG pCO2 POC ABG pO2 ABG pO2 ABG HCO3 ABG Hemoglobin Oxyhemoglobin Sodium Potassium Chloride Carbon Dioxide BUN 31 H Creatinine 1.8 H Glucose 129 H POC Glucose 133 H Lactic Acid Calcium Phosphorus Magnesium Direct Bilirubin AST ALT Alkaline Phosphatase Lactate Dehydrogenase Troponin T C-Reactive Protein Total Protein Albumin Prealbumin Triglycerides Cholesterol LDL Cholesterol Direct HDL Cholesterol Urine pH Urine WBC (Auto) Urine Creatinine Urine Total Protein Fluid Total Protein Vancomycin Trough Rheumatoid Factor Complement C4 Miscellaneous Test Crossmatch 11/20/16 11/20/16 11/21/16 12:40 18:10 01:20 WBC RBC Hgb Hct MCV MCH MCHC RDW Plt Count Lymph % (Auto) [place] % (Auto) Lymph # [place] # Baso # Seg Neutrophils % Seg Neuts % (Manual) Lymphocytes % (Manual) Monocytes % (Manual) Eosinophils % (Manual) Basophils % (Manual) Nucleated RBC % Seg Neutrophils # Seg Neutrophils # Man Lymphocytes # (Manual) Monocytes # (Manual) Eosinophils # (Manual) PT INR Fibrinogen dRVVT Confirm Interp Factor V Activity POC ABG pH POC ABG pCO2 POC ABG pO2 ABG pO2 ABG HCO3 ABG Hemoglobin Oxyhemoglobin Sodium Potassium Chloride Carbon Dioxide BUN Creatinine Glucose POC Glucose 134 H 138 H 136 H Lactic Acid Calcium Phosphorus Magnesium Direct Bilirubin AST ALT Alkaline Phosphatase Lactate Dehydrogenase Troponin T C-Reactive Protein Total Protein Albumin Prealbumin Triglycerides Cholesterol LDL Cholesterol Direct HDL Cholesterol Urine pH Urine WBC (Auto) Urine Creatinine Urine Total Protein Fluid Total Protein Vancomycin Trough Rheumatoid Factor Complement C4 Miscellaneous Test Crossmatch 11/21/16 11/21/16 11/21/16 07:04 07:45 07:45 WBC 22.0 H RBC 2.91 L Hgb 8.2 L Hct 25.4 L MCV MCH MCHC RDW 17.1 H Plt Count Lymph % (Auto) [place] % (Auto) Lymph # [place] # Baso # Seg Neutrophils % Seg Neuts % (Manual) Lymphocytes % (Manual) 8.0 L Monocytes % (Manual) Eosinophils % (Manual) Basophils % (Manual) Nucleated RBC % Seg Neutrophils # Seg Neutrophils # Man 14.7 H Lymphocytes # (Manual) Monocytes # (Manual) 1.1 H Eosinophils # (Manual) PT INR Fibrinogen dRVVT Confirm Interp Factor V Activity POC ABG pH POC ABG pCO2 POC ABG pO2 ABG pO2 ABG HCO3 ABG Hemoglobin Oxyhemoglobin Sodium Potassium Chloride Carbon Dioxide BUN 42 H Creatinine 2.0 H Glucose POC Glucose 108 H Lactic Acid Calcium Phosphorus Magnesium Direct Bilirubin AST ALT Alkaline Phosphatase Lactate Dehydrogenase Troponin T C-Reactive Protein Total Protein Albumin Prealbumin Triglycerides Cholesterol LDL Cholesterol Direct HDL Cholesterol Urine pH Urine WBC (Auto) Urine Creatinine Urine Total Protein Fluid Total Protein Vancomycin Trough Rheumatoid Factor Complement C4 Miscellaneous Test Crossmatch 11/21/16 11/21/16 11/21/16 08:38 10:09 11:20 WBC RBC Hgb Hct MCV MCH MCHC RDW Plt Count Lymph % (Auto) [place] % (Auto) Lymph # [place] # Baso # Seg Neutrophils % Seg Neuts % (Manual) Lymphocytes % (Manual) Monocytes % (Manual) Eosinophils % (Manual) Basophils % (Manual) Nucleated RBC % Seg Neutrophils # Seg Neutrophils # Man Lymphocytes # (Manual) Monocytes # (Manual) Eosinophils # (Manual) PT INR Fibrinogen dRVVT Confirm Interp Factor V Activity POC ABG pH 7.346 L POC ABG pCO2 34.4 L POC ABG pO2 314 H ABG pO2 ABG HCO3 ABG Hemoglobin Oxyhemoglobin Sodium Potassium Chloride Carbon Dioxide BUN Creatinine Glucose POC Glucose 195 H 153 H Lactic Acid Calcium Phosphorus Magnesium Direct Bilirubin AST ALT Alkaline Phosphatase Lactate Dehydrogenase Troponin T C-Reactive Protein Total Protein Albumin Prealbumin Triglycerides Cholesterol LDL Cholesterol Direct HDL Cholesterol Urine pH Urine WBC (Auto) Urine Creatinine Urine Total Protein Fluid Total Protein Vancomycin Trough Rheumatoid Factor Complement C4 Miscellaneous Test Crossmatch 11/21/16 11/22/16 11/22/16 23:37 04:48 05:00 WBC 29.7 H RBC 2.73 L Hgb 7.5 L Hct 24.2 L MCV MCH 27 L MCHC RDW 17.4 H Plt Count Lymph % (Auto) [place] % (Auto) Lymph # [place] # Baso # Seg Neutrophils % Seg Neuts % (Manual) Lymphocytes % (Manual) 7.0 L Monocytes % (Manual) Eosinophils % (Manual) Basophils % (Manual) Nucleated RBC % Seg Neutrophils # Seg Neutrophils # Man 15.4 H Lymphocytes # (Manual) Monocytes # (Manual) Eosinophils # (Manual) PT INR Fibrinogen dRVVT Confirm Interp Factor V Activity POC ABG pH POC ABG pCO2 24.6 L POC ABG pO2 189 H ABG pO2 ABG HCO3 ABG Hemoglobin Oxyhemoglobin Sodium Potassium Chloride Carbon Dioxide BUN Creatinine Glucose POC Glucose 65 L Lactic Acid Calcium Phosphorus Magnesium Direct Bilirubin AST ALT Alkaline Phosphatase Lactate Dehydrogenase Troponin T C-Reactive Protein Total Protein Albumin Prealbumin Triglycerides Cholesterol LDL Cholesterol Direct HDL Cholesterol Urine pH Urine WBC (Auto) Urine Creatinine Urine Total Protein Fluid Total Protein Vancomycin Trough Rheumatoid Factor Complement C4 Miscellaneous Test Crossmatch 11/22/16 11/23/16 11/23/16 05:00 03:44 04:06 WBC RBC 2.52 L Hgb 7.2 L Hct 21.5 L MCV MCH MCHC RDW 17.1 H Plt Count Lymph % (Auto) [place] % (Auto) 12.4 H Lymph # [place] # 1.4 H Baso # Seg Neutrophils % Seg Neuts % (Manual) Lymphocytes % (Manual) Monocytes % (Manual) Eosinophils % (Manual) Basophils % (Manual) Nucleated RBC % Seg Neutrophils # Seg Neutrophils # Man Lymphocytes # (Manual) Monocytes # (Manual) Eosinophils # (Manual) PT INR Fibrinogen dRVVT Confirm Interp Factor V Activity POC ABG pH 7.493 H POC ABG pCO2 29.5 L POC ABG pO2 49 L ABG pO2 ABG HCO3 ABG Hemoglobin Oxyhemoglobin Sodium 134 L Potassium Chloride 95.9 L Carbon Dioxide 14 L D BUN 51 H Creatinine 2.6 H Glucose POC Glucose Lactic Acid Calcium Phosphorus Magnesium Direct Bilirubin AST ALT Alkaline Phosphatase Lactate Dehydrogenase Troponin T C-Reactive Protein Total Protein Albumin Prealbumin Triglycerides Cholesterol LDL Cholesterol Direct HDL Cholesterol Urine pH Urine WBC (Auto) Urine Creatinine Urine Total Protein Fluid Total Protein Vancomycin Trough Rheumatoid Factor Complement C4 Miscellaneous Test Crossmatch 11/23/16 11/23/16 11/24/16 04:06 11:29 06:39 WBC RBC Hgb Hct MCV MCH MCHC RDW Plt Count Lymph % (Auto) [place] % (Auto) Lymph # [place] # Baso # Seg Neutrophils % Seg Neuts % (Manual) Lymphocytes % (Manual) Monocytes % (Manual) Eosinophils % (Manual) Basophils % (Manual) Nucleated RBC % Seg Neutrophils # Seg Neutrophils # Man Lymphocytes # (Manual) Monocytes # (Manual) Eosinophils # (Manual) PT INR Fibrinogen dRVVT Confirm Interp Factor V Activity POC ABG pH POC ABG pCO2 POC ABG pO2 ABG pO2 ABG HCO3 ABG Hemoglobin Oxyhemoglobin Sodium 136 L Potassium Chloride 95.2 L Carbon Dioxide BUN 60 H Creatinine 2.9 H Glucose POC Glucose 69 L 305 H Lactic Acid Calcium Phosphorus Magnesium 1.60 L Direct Bilirubin AST ALT Alkaline Phosphatase Lactate Dehydrogenase Troponin T C-Reactive Protein Total Protein Albumin Prealbumin Triglycerides Cholesterol LDL Cholesterol Direct HDL Cholesterol Urine pH Urine WBC (Auto) Urine Creatinine Urine Total Protein Fluid Total Protein Vancomycin Trough Rheumatoid Factor Complement C4 Miscellaneous Test Crossmatch 11/24/16 11/24/16 11/24/16 06:43 08:08 08:08 WBC 11.2 H RBC 2.47 L Hgb 6.8 L Hct 20.6 L MCV MCH MCHC RDW 17.0 H Plt Count Lymph % (Auto) [place] % (Auto) 10.3 H Lymph # [place] # 1.2 H Baso # Seg Neutrophils % Seg Neuts % (Manual) Lymphocytes % (Manual) Monocytes % (Manual) Eosinophils % (Manual) Basophils % (Manual) Nucleated RBC % Seg Neutrophils # Seg Neutrophils # Man Lymphocytes # (Manual) Monocytes # (Manual) Eosinophils # (Manual) PT INR Fibrinogen dRVVT Confirm Interp Factor V Activity POC ABG pH POC ABG pCO2 POC ABG pO2 ABG pO2 ABG HCO3 ABG Hemoglobin Oxyhemoglobin Sodium 135 L Potassium Chloride 96.3 L Carbon Dioxide BUN 61 H Creatinine 3.1 H Glucose POC Glucose 62 L Lactic Acid Calcium 8.2 L Phosphorus Magnesium Direct Bilirubin AST ALT Alkaline Phosphatase Lactate Dehydrogenase Troponin T C-Reactive Protein Total Protein Albumin Prealbumin Triglycerides Cholesterol LDL Cholesterol Direct HDL Cholesterol Urine pH Urine WBC (Auto) Urine Creatinine Urine Total Protein Fluid Total Protein Vancomycin Trough Rheumatoid Factor Complement C4 Miscellaneous Test Crossmatch 11/24/16 11/24/16 11/24/16 08:34 11:20 12:41 WBC RBC Hgb Hct MCV MCH MCHC RDW Plt Count Lymph % (Auto) [place] % (Auto) Lymph # [place] # Baso # Seg Neutrophils % Seg Neuts % (Manual) Lymphocytes % (Manual) Monocytes % (Manual) Eosinophils % (Manual) Basophils % (Manual) Nucleated RBC % Seg Neutrophils # Seg Neutrophils # Man Lymphocytes # (Manual) Monocytes # (Manual) Eosinophils # (Manual) PT INR Fibrinogen dRVVT Confirm Interp Factor V Activity POC ABG pH POC ABG pCO2 POC ABG pO2 ABG pO2 ABG HCO3 ABG Hemoglobin Oxyhemoglobin Sodium Potassium Chloride Carbon Dioxide BUN Creatinine Glucose POC Glucose 108 H Lactic Acid Calcium Phosphorus Magnesium 1.60 L Direct Bilirubin AST ALT Alkaline Phosphatase Lactate Dehydrogenase Troponin T C-Reactive Protein Total Protein Albumin Prealbumin Triglycerides Cholesterol LDL Cholesterol Direct HDL Cholesterol Urine pH Urine WBC (Auto) Urine Creatinine Urine Total Protein Fluid Total Protein Vancomycin Trough Rheumatoid Factor Complement C4 Miscellaneous Test Crossmatch See Detail 11/25/16 11/25/16 11/25/16 00:03 04:42 04:42 WBC RBC 3.03 L Hgb 8.6 L Hct 25.3 L MCV MCH MCHC RDW 16.2 H Plt Count Lymph % (Auto) [place] % (Auto) 8.1 H Lymph # [place] # Baso # Seg Neutrophils % 71.3 H Seg Neuts % (Manual) Lymphocytes % (Manual) Monocytes % (Manual) Eosinophils % (Manual) Basophils % (Manual) Nucleated RBC % Seg Neutrophils # Seg Neutrophils # Man Lymphocytes # (Manual) Monocytes # (Manual) Eosinophils # (Manual) PT INR Fibrinogen dRVVT Confirm Interp Factor V Activity POC ABG pH POC ABG pCO2 POC ABG pO2 ABG pO2 ABG HCO3 ABG Hemoglobin Oxyhemoglobin Sodium Potassium Chloride Carbon Dioxide BUN 61 H Creatinine 3.0 H Glucose 102 H POC Glucose 113 H Lactic Acid Calcium 8.2 L Phosphorus Magnesium Direct Bilirubin AST ALT Alkaline Phosphatase 142 H Lactate Dehydrogenase Troponin T C-Reactive Protein Total Protein 5.7 L Albumin 1.5 L Prealbumin Triglycerides Cholesterol LDL Cholesterol Direct HDL Cholesterol Urine pH Urine WBC (Auto) Urine Creatinine Urine Total Protein Fluid Total Protein Vancomycin Trough Rheumatoid Factor Complement C4 Miscellaneous Test Crossmatch 11/25/16 11/25/16 11/25/16 05:12 11:31 14:12 WBC RBC Hgb Hct MCV MCH MCHC RDW Plt Count Lymph % (Auto) [place] % (Auto) Lymph # [place] # Baso # Seg Neutrophils % Seg Neuts % (Manual) Lymphocytes % (Manual) Monocytes % (Manual) Eosinophils % (Manual) Basophils % (Manual) Nucleated RBC % Seg Neutrophils # Seg Neutrophils # Man Lymphocytes # (Manual) Monocytes # (Manual) Eosinophils # (Manual) PT INR Fibrinogen dRVVT Confirm Interp Factor V Activity POC ABG pH 7.487 H POC ABG pCO2 POC ABG pO2 153 H ABG pO2 ABG HCO3 ABG Hemoglobin Oxyhemoglobin Sodium Potassium Chloride Carbon Dioxide BUN Creatinine Glucose POC Glucose 131 H 140 H Lactic Acid Calcium Phosphorus Magnesium Direct Bilirubin AST ALT Alkaline Phosphatase Lactate Dehydrogenase Troponin T C-Reactive Protein Total Protein Albumin Prealbumin Triglycerides Cholesterol LDL Cholesterol Direct HDL Cholesterol Urine pH Urine WBC (Auto) Urine Creatinine Urine Total Protein Fluid Total Protein Vancomycin Trough Rheumatoid Factor Complement C4 Miscellaneous Test Crossmatch 11/25/16 11/26/16 11/26/16 17:23 00:09 05:13 WBC RBC 2.94 L Hgb 8.4 L Hct 24.6 L MCV MCH MCHC RDW 16.4 H Plt Count Lymph % (Auto) [place] % (Auto) 12.3 H Lymph # [place] # 1.1 H Baso # Seg Neutrophils % Seg Neuts % (Manual) Lymphocytes % (Manual) Monocytes % (Manual) Eosinophils % (Manual) Basophils % (Manual) Nucleated RBC % Seg Neutrophils # Seg Neutrophils # Man Lymphocytes # (Manual) Monocytes # (Manual) Eosinophils # (Manual) PT INR Fibrinogen dRVVT Confirm Interp Factor V Activity POC ABG pH POC ABG pCO2 POC ABG pO2 ABG pO2 ABG HCO3 ABG Hemoglobin Oxyhemoglobin Sodium Potassium Chloride Carbon Dioxide BUN Creatinine Glucose POC Glucose 146 H 112 H Lactic Acid Calcium Phosphorus Magnesium Direct Bilirubin AST ALT Alkaline Phosphatase Lactate Dehydrogenase Troponin T C-Reactive Protein Total Protein Albumin Prealbumin Triglycerides Cholesterol LDL Cholesterol Direct HDL Cholesterol Urine pH Urine WBC (Auto) Urine Creatinine Urine Total Protein Fluid Total Protein Vancomycin Trough Rheumatoid Factor Complement C4 Miscellaneous Test Crossmatch 11/26/16 11/26/16 11/26/16 05:13 05:28 11:53 WBC RBC Hgb Hct MCV MCH MCHC RDW Plt Count Lymph % (Auto) [place] % (Auto) Lymph # [place] # Baso # Seg Neutrophils % Seg Neuts % (Manual) Lymphocytes % (Manual) Monocytes % (Manual) Eosinophils % (Manual) Basophils % (Manual) Nucleated RBC % Seg Neutrophils # Seg Neutrophils # Man Lymphocytes # (Manual) Monocytes # (Manual) Eosinophils # (Manual) PT INR Fibrinogen dRVVT Confirm Interp Factor V Activity POC ABG pH POC ABG pCO2 POC ABG pO2 ABG pO2 ABG HCO3 ABG Hemoglobin Oxyhemoglobin Sodium Potassium Chloride 97.8 L Carbon Dioxide BUN 37 H Creatinine 2.0 H Glucose 109 H POC Glucose 117 H 111 H Lactic Acid Calcium 7.9 L Phosphorus 1.80 L D Magnesium Direct Bilirubin AST ALT Alkaline Phosphatase Lactate Dehydrogenase Troponin T C-Reactive Protein Total Protein Albumin Prealbumin Triglycerides Cholesterol LDL Cholesterol Direct HDL Cholesterol Urine pH Urine WBC (Auto) Urine Creatinine Urine Total Protein Fluid Total Protein Vancomycin Trough Rheumatoid Factor Complement C4 Miscellaneous Test Crossmatch 11/26/16 11/27/16 11/27/16 17:14 04:50 06:02 WBC RBC Hgb Hct MCV MCH MCHC RDW Plt Count Lymph % (Auto) [place] % (Auto) Lymph # [place] # Baso # Seg Neutrophils % Seg Neuts % (Manual) Lymphocytes % (Manual) Monocytes % (Manual) Eosinophils % (Manual) Basophils % (Manual) Nucleated RBC % Seg Neutrophils # Seg Neutrophils # Man Lymphocytes # (Manual) Monocytes # (Manual) Eosinophils # (Manual) PT INR Fibrinogen dRVVT Confirm Interp Factor V Activity POC ABG pH POC ABG pCO2 POC ABG pO2 ABG pO2 75.2 L ABG HCO3 26.4 H ABG Hemoglobin 7.6 L Oxyhemoglobin 94.8 L Sodium Potassium Chloride Carbon Dioxide BUN 49 H Creatinine 2.3 H Glucose POC Glucose 115 H Lactic Acid Calcium Phosphorus 1.50 L Magnesium Direct Bilirubin AST ALT Alkaline Phosphatase Lactate Dehydrogenase Troponin T C-Reactive Protein Total Protein Albumin Prealbumin Triglycerides Cholesterol LDL Cholesterol Direct HDL Cholesterol Urine pH Urine WBC (Auto) Urine Creatinine Urine Total Protein Fluid Total Protein Vancomycin Trough Rheumatoid Factor Complement C4 Miscellaneous Test Crossmatch 11/27/16 11/27/16 11/27/16 06:02 11:25 17:25 WBC 11.6 H RBC 2.75 L Hgb 7.6 L Hct 23.4 L MCV MCH MCHC RDW 16.5 H Plt Count Lymph % (Auto) [place] % (Auto) Lymph # [place] # Baso # Seg Neutrophils % Seg Neuts % (Manual) Lymphocytes % (Manual) Monocytes % (Manual) Eosinophils % (Manual) Basophils % (Manual) Nucleated RBC % Seg Neutrophils # Seg Neutrophils # Man Lymphocytes # (Manual) Monocytes # (Manual) Eosinophils # (Manual) PT INR Fibrinogen dRVVT Confirm Interp Factor V Activity POC ABG pH POC ABG pCO2 POC ABG pO2 ABG pO2 ABG HCO3 ABG Hemoglobin Oxyhemoglobin Sodium Potassium Chloride Carbon Dioxide BUN Creatinine Glucose POC Glucose 114 H 126 H Lactic Acid Calcium Phosphorus Magnesium Direct Bilirubin AST ALT Alkaline Phosphatase Lactate Dehydrogenase Troponin T C-Reactive Protein Total Protein Albumin Prealbumin Triglycerides Cholesterol LDL Cholesterol Direct HDL Cholesterol Urine pH Urine WBC (Auto) Urine Creatinine Urine Total Protein Fluid Total Protein Vancomycin Trough Rheumatoid Factor Complement C4 Miscellaneous Test Crossmatch 11/28/16 11/28/16 11/28/16 04:45 05:33 05:44 WBC RBC Hgb Hct MCV MCH MCHC RDW Plt Count Lymph % (Auto) [place] % (Auto) Lymph # [place] # Baso # Seg Neutrophils % Seg Neuts % (Manual) Lymphocytes % (Manual) Monocytes % (Manual) Eosinophils % (Manual) Basophils % (Manual) Nucleated RBC % Seg Neutrophils # Seg Neutrophils # Man Lymphocytes # (Manual) Monocytes # (Manual) Eosinophils # (Manual) PT INR Fibrinogen dRVVT Confirm Interp Factor V Activity POC ABG pH POC ABG pCO2 POC ABG pO2 ABG pO2 99.3 H ABG HCO3 ABG Hemoglobin 8.3 L Oxyhemoglobin Sodium Potassium Chloride Carbon Dioxide BUN 63 H Creatinine 2.4 H Glucose 102 H POC Glucose 108 H Lactic Acid Calcium Phosphorus 1.80 L Magnesium Direct Bilirubin AST ALT Alkaline Phosphatase Lactate Dehydrogenase Troponin T C-Reactive Protein Total Protein Albumin Prealbumin Triglycerides Cholesterol LDL Cholesterol Direct HDL Cholesterol Urine pH Urine WBC (Auto) Urine Creatinine Urine Total Protein Fluid Total Protein Vancomycin Trough Rheumatoid Factor Complement C4 Miscellaneous Test Crossmatch Chest x-ray: image reviewed (developed new bibasilar atelectasis likely compressive from new effusions) Allied health notes reviewed: RT
[2016-11-28] MEDS: HEPARIN SUB-Q SCH ×2 (10:30→22:29)
[2016-11-28] MEDS: PROTONIX IV SCH (10:30)
[2016-11-28] MEDS: LASIX IV SCH ×2 (10:31→18:01)
[2016-11-28] MEDS ORDERED: LOPRESSOR IV SCH (12:00)
[2016-11-28] MEDS: LOPRESSOR IV SCH ×2 (13:38→20:36)
[2016-11-28] MEDS: DURAGESIC TD SCH (13:40)
[2016-11-28] MEDS ORDERED: ROBINUL PO SCH (14:00)
[2016-11-28] MEDS ORDERED: SODIUM PHOSPHATE 15 MMOL in NACL 0.9% 250ML 250 ML IV ONE (15:00)
--- NOTE | 2016-11-28 17:45 | Progress Note ---
Assessment and Plan Assessment and plan: Patient is 46-year-old woman with a history of hypertension, diabetes, asthma, hyperlipidemia, chronic kidney disease and anxiety , who was brought in by family because, she couldn't get her words out, her face was also twisted, she was admitted for acute CVA and accelerated hypertension, she had a hx of poor adherence with her medications, and uncontrolled htn. Patient's SBP on admission was noted be greater than 260. TPA was started but this was discontinued after 5 minutes because her blood pressure became uncontrolled. The TPA was not initiated again because the patient was outside the TPA window. Status post cardiac arrest , 11/21/16 - Received CPR and was resuscitated. Fever - resolved - Now on Vancomycin - s/p R thoracentesis on 11/14, 240cc of serous fluid removed, cx of fluid was negative - Stool negative for C. difficile Severe Sepsis with septic shock - Resolving Surgical wound infection/gram-negative sepsis/candidemia/peritonitis - PEG has been removed and pus is drained from the PEG site - Currently on tube feeding -continue wound care to ostomy sites JUANITA, ESRD - on HD per nephrology Acute CVA with infarct - Neurology input appreciated - CT shows continued evolution of left MCA infarct with slight mass effect and edema, and there is no hemorrhage - PRINCE showed hyperdynamic with ef of 75%, neither clot nor septal defect seen - MRA Brain shows near complete occlusion of M2 and M3 of the left MCA - Repeat CT scan done on 09/11, shows stable findings - carotid doppler negative - Echo shows preserved systolic function but does show some left ventricular diastolic dysfunction - continue asa and statin Persistent vegetative state - This patient's needs placement at SNF - She was denied for LTACH Acute hypoxic respiratory failure requiring MV >96hrs - Status post tracheostomy, was on T piece Nosocomial acquired aspiration pneumonia/sepsis/UTI - Recurrent - On vancomycin Asthma/COPD exacerbation - ON trach, mechanical ventilation Acute Toxic Metabolic encephalopathy. - Multitifactorial, mostly secondary to evolution of CVA Bilateral pleural effusion, s/p right thoracentesis 11/14 - fluid analysis cw transudate Paroxysmal atrial fibrillation with rapid ventricular rate and hyper-coaguable state - failed cardioversion - Continue current medications, Not a candidate for anticoagulation secondary to anemia, thrombocytopenia, and massive CVA Diabetes type 2. Continue sliding-scale regular insulin and Accu-Cheks. Hyperlipidemia. Continue statin Nutrition - continue tube feeds Anemia requiring multiple transfusions/acute blood loss - Has received total 14 units of PRBC this admission. Will continue to transfuse to keep Hemoglobin above 7 - Hemoglobin 7.6 yesterday Per the C Web Developer patient's were explained the disease situation yesterday by Dr Lopez and they refused hospice. Have been explained by the hospitalist group and the promos executive producer about the poor prognosis of the patient but the family said she may made it and refused. Will talk to them at the end of the week. Disposition. Very poor prognosis. History Interval history: Patient was seen and evaluated this morning, patient is in persistent vegetative state. 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 Hospitalist Physical - Physical exam Narrative exam: Patient is on mechanical ventilation Vital signs as documented. Head exam is unremarkable. No scleral icterus . Neck is without jugular venous distension, thyromegaly, or carotid bruits. Lungs are clear to auscultation. Cardiac exam reveals regular rate and Rhythm. First and second heart sounds normal. No murmurs, rubs or gallops. Abdominal exam reveals abscess draining from the PEG site, and multiple fistulas around the stomach. Extremities are nonedematous and both femoral and pedal pulses are normal. BUSINESS DEVELOPMENT COORDINATOR: comatose - Constitutional Vitals: Temp Pulse Resp BP Pulse Ox 98.6 F 119 H 13 116/74 98 11/28/16 16:29 11/28/16 17:06 11/28/16 17:06 11/28/16 17:06 11/28/16 17:35 General appearance: Present: no acute distress Results - Labs CBC & Chem 7: 11/27/16 06:02 11/28/16 05:33 Labs: Laboratory Last Values WBC 11.6 K/mm3 (4.5-11.0) H 11/27/16 06:02 RBC 2.75 M/mm3 (3.65-5.03) L 11/27/16 06:02 Hgb 7.6 gm/dl (10.1-14.3) L 11/27/16 06:02 Hct 23.4 % (30.3-42.9) L 11/27/16 06:02 MCV 85 fl (79-97) 11/27/16 06:02 MCH 28 pg (28-32) 11/27/16 06:02 MCHC 33 % (30-34) 11/27/16 06:02 RDW 16.5 % (13.2-15.2) H 11/27/16 06:02 Plt Count 230 K/mm3 (140-440) 11/27/16 06:02 Lymph % (Auto) 17.0 % (13.4-35.0) 11/26/16 05:13 [place] % (Auto) 12.3 % (0.0-7.3) H 11/26/16 05:13 Eos % (Auto) 0.6 % (0.0-4.3) 11/26/16 05:13 Baso % (Auto) 0.4 % (0.0-1.8) 11/26/16 05:13 Lymph # 1.5 K/mm3 (1.2-5.4) 11/26/16 05:13 [place] # 1.1 K/mm3 (0.0-0.8) H 11/26/16 05:13 Eos # 0.1 K/mm3 (0.0-0.4) 11/26/16 05:13 Baso # 0.0 K/mm3 (0.0-0.1) 11/26/16 05:13 Add Manual Diff Complete 11/22/16 05:00 Total Counted 100 11/22/16 05:00 Seg Neutrophils % 69.7 % (40.0-70.0) 11/26/16 05:13 Seg Neuts % (Manual) 52.0 % (40.0-70.0) 11/22/16 05:00 Band Neutrophils % 37.0 % 11/22/16 05:00 Lymphocytes % (Manual) 7.0 % (13.4-35.0) L 11/22/16 05:00 Reactive Lymphs % (Man) 0 % 11/22/16 05:00 Monocytes % (Manual) 0 % (0.0-7.3) 11/22/16 05:00 Eosinophils % (Manual) 1.0 % (0.0-4.3) 11/22/16 05:00 Basophils % (Manual) 0 % (0.0-1.8) 11/21/16 07:45 Metamyelocytes % 1.0 % 11/22/16 05:00 Myelocytes % 2.0 % 11/22/16 05:00 Promyelocytes % 0 % 11/22/16 05:00 Blast Cells % 0 % 11/22/16 05:00 Nucleated RBC % Not Reportable 11/22/16 05:00 Seg Neutrophils # 6.3 K/mm3 (1.8-7.7) 11/26/16 05:13 Seg Neutrophils # Man 15.4 K/mm3 (1.8-7.7) H 11/22/16 05:00 Band Neutrophils # 11.0 K/mm3 11/22/16 05:00 Lymphocytes # (Manual) 2.1 K/mm3 (1.2-5.4) 11/22/16 05:00 Abs React Lymphs (Man) 0.0 K/mm3 11/22/16 05:00 Monocytes # (Manual) 0.0 K/mm3 (0.0-0.8) 11/22/16 05:00 Eosinophils # (Manual) 0.3 K/mm3 (0.0-0.4) 11/22/16 05:00 Basophils # (Manual) 0.0 K/mm3 (0.0-0.1) 11/22/16 05:00 Metamyelocytes # 0.3 K/mm3 11/22/16 05:00 Myelocytes # 0.6 K/mm3 11/22/16 05:00 Promyelocytes # 0.0 K/mm3 11/22/16 05:00 Blast Cells # 0.0 K/mm3 11/22/16 05:00 Pathologist Review 09/13/16 04:00 WBC Morphology Not Reportable 11/22/16 05:00 Hypersegmented Neuts Not Reportable 11/22/16 05:00 Hyposegmented Neuts Not Reportable 11/22/16 05:00 Hypogranular Neuts Not Reportable 11/22/16 05:00 Smudge Cells Not Reportable 11/22/16 05:00 Toxic Granulation Not Reportable 11/22/16 05:00 Toxic Vacuolation Not Reportable 11/22/16 05:00 Dohle Bodies Not Reportable 11/22/16 05:00 Pelger-Huet Anomaly Not Reportable 11/22/16 05:00 Jasmina Rods Not Reportable 11/22/16 05:00 Platelet Estimate Not Reportable 11/22/16 05:00 Clumped Platelets Not Reportable 11/22/16 05:00 Plt Clumps, EDTA Not Reportable 11/22/16 05:00 Large Platelets Not Reportable 11/22/16 05:00 Giant Platelets Not Reportable 11/22/16 05:00 Platelet Satelliting Not Reportable 11/22/16 05:00 Plt Morphology Comment Not Reportable 11/22/16 05:00 RBC Morphology Not Reportable 11/22/16 05:00 Dimorphic RBCs Not Reportable 11/22/16 05:00 Polychromasia Few 11/22/16 05:00 Hypochromasia Not Reportable 11/22/16 05:00 Poikilocytosis Not Reportable 11/22/16 05:00 Anisocytosis Not Reportable 11/22/16 05:00 Microcytosis Not Reportable 11/22/16 05:00 Macrocytosis Not Reportable 11/22/16 05:00 Spherocytes Not Reportable 11/22/16 05:00 Pappenheimer Bodies Not Reportable 11/22/16 05:00 Sickle Cells Not Reportable 11/22/16 05:00 Target Cells Not Reportable 11/22/16 05:00 Tear Drop Cells Not Reportable 11/22/16 05:00 Ovalocytes Not Reportable 11/22/16 05:00 Stomatocytes Few 10/06/16 03:50 Helmet Cells Not Reportable 11/22/16 05:00 Monet-Ute Bodies Not Reportable 11/22/16 05:00 [place] Rings Not Reportable 11/22/16 05:00 Chuck Cells Not Reportable 11/22/16 05:00 Bite Cells Not Reportable 11/22/16 05:00 Crenated Cell Not Reportable 11/22/16 05:00 Elliptocytes Not Reportable 11/22/16 05:00 Acanthocytes (Spur) Not Reportable 11/22/16 05:00 Rouleaux Not Reportable 11/22/16 05:00 Hemoglobin C Crystals Not Reportable 11/22/16 05:00 Schistocytes Not Reportable 11/22/16 05:00 Malaria parasites Not Reportable 11/22/16 05:00 ESR > 140.0 mm/Hr (0-20) 09/08/16 11:48 Jun Bodies Not Reportable 11/22/16 05:00 Hem Pathologist Commnt No 11/22/16 05:00 PT 16.8 Sec. (12.2-14.9) H 11/17/16 03:20 INR 1.37 (0.87-1.13) H 11/17/16 03:20 APTT 33.0 Sec. (24.2-36.6) 10/09/16 03:45 Thrombin Time 16.8 Sec. (15.1-19.6) 09/03/16 00:10 Fibrinogen 750 mg/dl (211-480) H 09/08/16 11:48 Lupus Anticoagulant see below 09/12/16 09:59 LA PTT Baseline See scanned report 09/12/16 09:59 dRVVT Confirm Interp Positive (Negative) H 09/12/16 09:59 dRVVT Screen 50:50 See scanned report 09/12/16 09:59 dRVVT Mix Interpret See scanned report 09/12/16 09:59 Protein C Antigen 122 % (70-140) 09/08/16 15:35 Free Protein S 97 % normal (50-147) 09/08/16 15:35 Total Protein S 109 % (70-140) 09/08/16 15:35 Antithrombin III Ag 100 % (80-120) 09/08/16 15:35 Heparin Anti-Xa, Unfract Negative (Negative) 09/29/16 13:35 Factor V Activity 182 % (65-150) H 09/08/16 15:35 POC ABG pH 7.487 (7.35-7.45) H 11/25/16 14:12 ABG pH 7.415 pH Units (7.350-7.450) 11/28/16 04:45 POC ABG pCO2 39.0 (35-45) 11/25/16 14:12 ABG pCO2 40.2 mm Hg 11/28/16 04:45 POC ABG pO2 153 (80-105) H 11/25/16 14:12 ABG pO2 99.3 mm Hg (80.0-90.0) H 11/28/16 04:45 POC ABG HCO3 29.5 11/25/16 14:12 ABG HCO3 25.2 mmol/L (20.0-26.0) 11/28/16 04:45 POC ABG Total CO2 31 11/25/16 14:12 POC ABG O2 Sat 99 11/25/16 14:12 ABG O2 Saturation 97.6 % (95.0-99.0) 11/28/16 04:45 ABG O2 Content 11.3 (0.0-44) 11/28/16 04:45 POC ABG Base Excess 6 11/25/16 14:12 ABG Base Excess 0.6 mmol/L (-2.0-3.0) 11/28/16 04:45 ABG Hemoglobin 8.3 gm/dl (12.0-16.0) L 11/28/16 04:45 ABG Carboxyhemoglobin 1.7 % (0.0-5.0) 11/28/16 04:45 ABG Methemoglobin 0.5 % (0.0-1.5) 11/28/16 04:45 Oxyhemoglobin 95.5 % (95.0-99.0) 11/28/16 04:45 FiO2 30 % 11/28/16 04:45 Sodium 137 mmol/L (137-145) 11/28/16 05:33 Potassium 4.6 mmol/L (3.6-5.0) 11/28/16 05:33 Chloride 98.9 mmol/L (98-107) 11/28/16 05:33 Carbon Dioxide 23 mmol/L (22-30) 11/28/16 05:33 Anion Gap 20 mmol/L 11/28/16 05:33 BUN 63 mg/dL (7-17) H 11/28/16 05:33 Creatinine 2.4 mg/dL (0.7-1.2) H 11/28/16 05:33 Estimated GFR 26 ml/min 11/28/16 05:33 BUN/Creatinine Ratio 26 % 11/28/16 05:33 Glucose 102 mg/dL (65-100) H 11/28/16 05:33 POC Glucose 111 (70-105) H 11/28/16 16:09 Osmolality 351 Mosm/kg 09/16/16 11:47 Lactic Acid 4.50 mmol/L (0.7-2.0) H* 09/28/16 07:25 Calcium 8.7 mg/dL (8.4-10.2) 11/28/16 05:33 Phosphorus 1.80 mg/dL (2.5-4.5) L 11/28/16 05:33 Magnesium 1.90 mg/dL (1.7-2.3) 11/28/16 05:33 Total Bilirubin 0.60 mg/dL (0.1-1.2) 11/25/16 04:42 Direct Bilirubin 0.3 mg/dL (0-0.2) H 10/10/16 05:00 Indirect Bilirubin 0.1 mg/dL 10/10/16 05:00 AST 19 units/L (5-40) 11/25/16 04:42 ALT 15 units/L (7-56) 11/25/16 04:42 Alkaline Phosphatase 142 units/L (35-129) H 11/25/16 04:42 Ammonia 27.0 umol/L (25-60) 09/07/16 08:37 Lactate Dehydrogenase 196 units/L (91-180) H 11/11/16 06:59 Total Creatine Kinase 121 units/L (30-135) 09/29/16 20:12 CK-MB (CK-2) < 1.0 ng/mL (0.0-4.0) 09/29/16 20:12 CK-MB (CK-2) Rel Index 0.8 (0-4) 09/29/16 20:12 Troponin T 0.204 ng/mL (0.00-0.029) H* 09/29/16 20:12 C-Reactive Protein 11.40 mg/dL (0.00-1.30) H 11/05/16 13:25 Total Protein 5.7 g/dL (6.3-8.2) L 11/25/16 04:42 Albumin 1.5 g/dL (3.9-5) L 11/25/16 04:42 Albumin/Globulin Ratio 0.4 % 11/25/16 04:42 Prealbumin 0.180 g/L (0.200-0.400) L 11/06/16 06:25 Triglycerides 137 mg/dL (2-149) 09/29/16 20:12 Cholesterol 31 mg/dL (50-199) L 09/29/16 20:12 LDL Cholesterol Direct 4 mg/dL (50-130) L 09/29/16 20:12 HDL Cholesterol 3 mg/dL (40-59) L 09/29/16 20:12 Cholesterol/HDL Ratio 10.33 % 09/29/16 20:12 Angiotensin Convert Enz See scanned report 09/08/16 11:48 Renin 0.99 ng/mL/h (0.25-5.82) 10/07/16 10:56 Aldosterone <1 ng/dL () 10/07/16 10:56 Aldosterone/Renin Dir see below 10/07/16 10:56 Serotonin Release Assay See scanned report 09/29/16 13:35 TSH 1.010 mlU/mL (0.270-4.200) 09/07/16 08:37 HCG, Qual Negative (Negative) 09/03/16 00:10 Urine Color Yellow (Yellow) 11/05/16 13:09 Urine Turbidity Clear (Clear) 11/05/16 13:09 Urine pH 9.0 (5.0-7.0) H 11/05/16 13:09 Ur Specific Mico 1.011 (1.003-1.030) 11/05/16 13:09 Urine Protein 100 mg/dl mg/dL (Negative) 11/05/16 13:09 Urine Glucose (UA) Neg mg/dL (Negative) 11/05/16 13:09 Urine Ketones Neg mg/dL (Negative) 11/05/16 13:09 Urine Blood Neg (Negative) 11/05/16 13:09 Urine Nitrite Neg (Negative) 11/05/16 13:09 Urine Bilirubin Neg (Negative) 11/05/16 13:09 Urine Urobilinogen < 2.0 mg/dL (<2.0) 11/05/16 13:09 Ur Leukocyte Esterase Neg (Negative) 11/05/16 13:09 Urine WBC (Auto) 4.0 /HPF (0.0-6.0) 11/05/16 13:09 Urine RBC (Auto) 1.0 /HPF (0.0-6.0) 11/05/16 13:09 U Epithel Cells (Auto) 1.0 /HPF (0-13.0) 10/07/16 18:30 Urine Bacteria (Auto) 4+ /HPF (Negative) 11/05/16 13:09 Urine WBC Clumps 2+ /HPF 09/07/16 02:47 Hyaline Casts 4 /LPF 09/07/16 02:47 Urine Mucus Few /HPF 10/07/16 18:30 Urine Yeast (Budding) 3+ /HPF 10/07/16 18:30 Urine Eosinophils None seen (None Seen) 09/07/16 16:00 Urine Total Volume 950 11/12/16 10:18 Urine Creatinine 19.7 mg/dL (0.1-20.0) 11/12/16 10:18 Height (in) 65.0 inches 11/12/16 10:18 Weight (lb) 181.0 lbs 11/12/16 10:18 Creatinine Clearance 5 11/12/16 10:18 Urine Sodium 36 mEq/L 09/16/16 19:19 Urine Total Protein 16 mg/dL (5-11.8) H 09/16/16 19:19 Fluid Total Protein < 3.0 (15.0-45.0) L 11/10/16 14:20 Fluid LDH 123 11/10/16 14:20 Vancomycin Trough 2.3 ug/mL (5.0-20.0) L 09/21/16 13:00 Random Vancomycin 16.5 ug/mL (0-40.0) 11/28/16 09:45 Urine Opiates Screen Presumptive negative 09/03/16 15:11 Urine Methadone Screen Presumptive positive 09/03/16 15:11 Ur Barbiturates Screen Presumptive positive 09/03/16 15:11 Ur Phencyclidine Scrn Presumptive negative 09/03/16 15:11 Ur Amphetamines Screen Presumptive negative 09/03/16 15:11 U Benzodiazepines Scrn Presumptive negative 09/03/16 15:11 Urine Cocaine Screen Presumptive negative 09/03/16 15:11 U Marijuana (THC) Screen Presumptive positive 09/03/16 15:11 Drugs of Abuse Note Disclamer 09/03/16 15:11 Rheumatoid Factor 24 IU/ml (0-13) H 09/08/16 11:48 SAHIL Screen Negative (Negative) 09/07/16 09:20 Proteinase 3 (PR3) Ab <1.0 AI (<1.0) 09/07/16 09:20 Myeloperoxidase Ab <1.0 AI (<1.0) 09/07/16 09:20 Sjogren's Antibody <1.0 AI (<1.0) 09/08/16 15:35 Scl-70 Scleroderma Ab <1.0 AI (<1.0) 09/08/16 15:35 Centromere B Antibody <1.0 AI (<1.0) 09/08/16 12:02 Heparin-induced Plt Ab Negative (Negative) 09/29/16 13:35 UF Heparin High Dose 11 % Release 09/29/16 13:35 SUDHIR UFH Low Dose 0.1 6 % Release 09/29/16 13:35 SUDHIR UFH Low Dose 0.5 8 % Release 09/29/16 13:35 Cardiolipid IgG Ab <14 GPL (<=14) 09/12/16 09:59 Cardiolipid IgA Ab <11 APL (<=11) 09/12/16 09:59 Cardiolipid IgM Ab <12 MPL (<=12) 09/12/16 09:59 Complement C3 148 mg/dL (90-180) 09/07/16 09:20 Complement C4 58 mg/dL (16-47) H 09/07/16 09:20 RPR Nonreactive (Nonreactive) 09/08/16 11:48 Hepatitis A IgM Ab Non-reactive (NonReactive) 09/24/16 14:40 Hep Bs Antigen Non-reactive (Negative) 09/24/16 14:40 Hep B Core IgM Ab Non-reactive (NonReactive) 09/24/16 14:40 Hepatitis C Antibody Non-reactive (NonReactive) 09/24/16 14:40 HIV 1&2 Antibody Rapid Non react (Non React) 09/08/16 11:48 HIV P24 Antigen Non react (Non React) 09/08/16 11:48 Miscellaneous Test Flexitest 1 H 11/05/16 13:25 Blood Type A POSITIVE 11/24/16 11:20 Antibody Screen TNR 11/24/16 11:20 DELORIS Antibody Screen Negative 11/24/16 11:20 Crossmatch See Detail 11/24/16 11:20
[2016-11-28] MEDS ORDERED: TPN ADULT IV SCH (20:00)
[2016-11-29] MEDS: HumuLIN R SUB-Q SCH ×4 (00:03→18:03)
[2016-11-29] MEDS: APRESOLINE IV SCH ×5 (00:07→23:34)
[2016-11-29] MEDS: LOPRESSOR IV SCH ×4 (02:29→20:16)
[2016-11-29 04:36] LABS: ABG Base Excess -0.4 mmol/L (-2.0-3.0); ABG HCO3 24.2 mmol/L (20.0-26.0); ABG Methemoglobin 0.5 % (0.0-1.5); ABG Oxygen Saturation 97.1 % (95.0-99.0); ABG PCO2 39.6 mm Hg; ABG PH 7.405 pH Units (7.350-7.450); ABG PO2 84.3 mm Hg (80.0-90.0)
[2016-11-29] MEDS: LASIX IV SCH ×2 (05:49→18:01)
[2016-11-29] MEDS ORDERED: NACL 0.9% 100 ML IV PRN (09:12)
[2016-11-29] MEDS: MORPHINE IV PRN ×2 (09:12→16:31)
--- NOTE | 2016-11-29 09:12 | Progress Note ---
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 shift * Acute hypoxic respiratory failure * Left renal artery stenosis * Metabolic acidosis - improved * Anemia * Hyponatremia - multifactorial * tachycardia Plan: * Uneventful hemodialysis on 11/25/16. * Her tachycardia seems to be somewhat better today. Shll attend dialysis again today. * Continue loop diuretics as well. * Her PermCath is no longer being used for IV access at this time * monitor for renal recovery * Rate control per cardiology * Dose medications for renal function * Avoid potential nephrotoxins Subjective Date of service: 11/29/16 Principal diagnosis: Acute resp failure on MVS; S/P Acute CVA; Acute Encephalopathy; JUANITA Interval history: Patient remains in the ICU. On 30% FiO2. Unresponsive. Objective - Vital Signs Vital signs: Vital Signs - 12hr 11/28/16 11/28/16 11/28/16 21:31 22:00 22:31 Temperature Pulse Rate 111 H 111 H 112 H Pulse Rate [ From Monitor] Respiratory 12 14 14 Rate Blood Pressure 153/96 160/93 160/93 O2 Sat by Pulse 99 Oximetry O2 Sat by Pulse Oximetry [ Assessment] 11/28/16 11/28/16 11/28/16 23:01 23:09 23:31 Temperature 98.4 F Pulse Rate 114 H 114 H Pulse Rate [ From Monitor] Respiratory 13 16 Rate Blood Pressure 160/93 160/93 O2 Sat by Pulse 100 99 Oximetry O2 Sat by Pulse Oximetry [ Assessment] 11/28/16 11/28/16 11/29/16 23:52 23:55 00:00 Temperature Pulse Rate 114 H 114 H Pulse Rate [ From Monitor] Respiratory 13 Rate Blood Pressure 160/93 149/91 O2 Sat by Pulse 99 Oximetry O2 Sat by Pulse 99 Oximetry [ Assessment] 11/29/16 11/29/16 11/29/16 00:03 00:07 00:15 Temperature Pulse Rate 117 H 116 H Pulse Rate [ From Monitor] Respiratory 14 14 Rate Blood Pressure 149/91 149/91 O2 Sat by Pulse 100 Oximetry O2 Sat by Pulse Oximetry [ Assessment] 11/29/16 11/29/16 11/29/16 00:31 01:01 01:31 Temperature Pulse Rate 121 H 121 H 120 H Pulse Rate [ From Monitor] Respiratory 14 12 15 Rate Blood Pressure 149/91 149/91 149/91 O2 Sat by Pulse 98 98 97 Oximetry O2 Sat by Pulse Oximetry [ Assessment] 11/29/16 11/29/16 11/29/16 02:00 02:29 02:31 Temperature Pulse Rate 119 H 122 H 105 H Pulse Rate [ From Monitor] Respiratory 16 15 Rate Blood Pressure 165/90 165/90 165/90 O2 Sat by Pulse 99 98 Oximetry O2 Sat by Pulse Oximetry [ Assessment] 11/29/16 11/29/16 11/29/16 03:01 03:18 03:31 Temperature 99.2 F Pulse Rate 106 H 110 H Pulse Rate [ From Monitor] Respiratory 11 L 12 Rate Blood Pressure 165/90 165/90 O2 Sat by Pulse 100 98 Oximetry O2 Sat by Pulse Oximetry [ Assessment] 11/29/16 11/29/16 11/29/16 03:36 04:00 04:31 Temperature Pulse Rate 110 H 113 H 115 H Pulse Rate [ From Monitor] Respiratory 13 13 Rate Blood Pressure 165/90 164/93 164/93 O2 Sat by Pulse 98 100 100 Oximetry O2 Sat by Pulse Oximetry [ Assessment] 11/29/16 11/29/16 11/29/16 04:35 05:01 05:31 Temperature Pulse Rate 127 H 129 H Pulse Rate [ From Monitor] Respiratory 14 15 18 Rate Blood Pressure 164/93 164/93 O2 Sat by Pulse 99 99 100 Oximetry O2 Sat by Pulse Oximetry [ Assessment] 11/29/16 11/29/16 11/29/16 05:48 06:00 06:31 Temperature Pulse Rate 123 H 123 H 127 H Pulse Rate [ From Monitor] Respiratory 18 19 Rate Blood Pressure 164/93 159/86 159/86 O2 Sat by Pulse 100 99 Oximetry O2 Sat by Pulse Oximetry [ Assessment] 11/29/16 11/29/16 11/29/16 07:01 07:31 08:00 Temperature 98.4 F Pulse Rate 127 H 127 H 125 H Pulse Rate [ 125 H From Monitor] Respiratory 17 17 13 Rate Blood Pressure 159/86 159/86 182/80 O2 Sat by Pulse 99 100 100 Oximetry O2 Sat by Pulse 100 Oximetry [ Assessment] 11/29/16 11/29/16 08:13 08:19 Temperature Pulse Rate 123 H 106 H Pulse Rate [ From Monitor] Respiratory 22 Rate Blood Pressure 182/80 163/86 O2 Sat by Pulse 98 Oximetry O2 Sat by Pulse Oximetry [ Assessment] - General Appearance General appearance: well-developed, well-nourished, appears stated age, intubated EENT: PERRL, mucous membranes moist Neck: no JVD, no thyromegaly, no carotid bruit, supple, other (left IJ PermCath in place) Respiratory: Present: Ronchi (bilateral scattered rhonchi) Cardiology: regular, normal heart rate, S1S2, no murmurs Gastrointestinal: normal, normoactive bowel sounds Integumentary: no rash, other (2+ edema) - Lab 11/27/16 06:02 11/29/16 04:52 Most recent lab results ABG pH 7.405 pH Units (7.350-7.450) 11/29/16 03:33 ABG pCO2 39.6 mm Hg 11/29/16 03:33 ABG pO2 84.3 mm Hg (80.0-90.0) 11/29/16 03:33 ABG HCO3 24.2 mmol/L (20.0-26.0) 11/29/16 03:33 ABG O2 Saturation 97.1 % (95.0-99.0) 11/29/16 03:33 Calcium 9.0 mg/dL (8.4-10.2) 11/29/16 04:52 Phosphorus 3.70 mg/dL (2.5-4.5) D 11/29/16 04:52 Magnesium 2.10 mg/dL (1.7-2.3) 11/29/16 04:52 Urine Creatinine 19.7 mg/dL (0.1-20.0) 11/12/16 10:18 Urine Sodium 36 mEq/L 09/16/16 19:19 Urine Total Protein 16 mg/dL (5-11.8) H 09/16/16 19:19
[2016-11-29] MEDS: HEPARIN SUB-Q SCH ×2 (09:13→23:34)
[2016-11-29] MEDS: PROTONIX IV SCH (09:13)
--- NOTE | 2016-11-29 10:45 | Progress Note ---
Assessment and Plan Assessment: 1) Recurrent SIRS: after recent code ? unclear etiology DDx ? bacteremia from PICC line infection. 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 3) History of Candidemia: -Blood cultures positive for Silvia albicans on 09/23 -Blood cultures positive on 09/25 -Blood cultures negative on 09/30 -PICC line changed on 10/03 -Source ? gastric perf (PEG placed on 09/20) +/- TPN +/- central lines -TTE 10/07 no vegetations -PICC exchanged on 10/03 -fully treated with micafungin for 14 days last day 10/13 4) History CA-UTI s/p gutierrez exchanged 5) Diarrhea - ? etiology ? antibiotic-induced, not better. Multiple Cdiff negative 6) Initial presumed aspiration pneumonia 7) Respiratory failure s/p trach 8) Recent CVA-left MCA CVA 9) Uncontrolled HTN 10) Acute on CKD 11) Extensive back skin peeling ? burn from gastric secretions. Doubt allergic reaction - resolved 12) Severe anemia; ? from GI bleed 13) Recent abdominal wall abscess at surgical site-treated Plan: -continue vancomycin day 8 of 14 -monitor temperature and leukocytosis Thank you Dr Foley for your consultation, will follow up with you. Pauline Carias MD Infectious Diseases Specialist [facility] ([facility]) M [phone] O [phone] Subjective Date of service: 11/29/16 Principal diagnosis: Acute resp failure on MVS; S/P Acute CVA; Acute Encephalopathy; JUANITA Interval history: Interval history: No fever for 48h. Remains on CPAP via trach. Microbiology: Blood cultures: 09/13 neg 09/23 Silvia albicans / Silvia / neg 10/07 neg /16 neg / ngtd 11/22 E faecalis 1 of 4 bottles 11/25 ngtd Urine cultures: 09/10 neg 09/13 neg 8/4 10-100K mixed species 10/07 neg 11/05 VRE 11/07 mixed bacteria Respiratory cultures: 09/07 neg 09/13 neg 09/23 neg 9/18 MDR Pseudomonas 11/21 tracheal + VRE Wound cultures: 10/17 abd wall wound purulence + Pseudomonas MDR Stool cultures: cath tip 11/07 + DERRICK FOLLOWER Current Antimicrobials: vanco 11/23 Previous Antimicrobials: Zosyn 10/07 Vancomycin PO 10/01 Metronidazole 09/25 Micafungin 09/27-10/13 Meropenem 10/10 Vanco 10/17 zosyn 10/21 Cefepime 11/10 vancomyin 11/07 fluconazole 10/19 cefepime 10/29levaquin 11/05 Objective - Exam Narrative Exam: General appearance: somnolent, non communicative, on the vent via trach no following commands Eyes: anicteric sclera, moist conjunctivae; PERRLA HENT: Atraumatic; oropharynx limited; Normal external ears. +NGT with greenish secretion Neck: +trach in place; supple, no thyromegaly or lymphadenopathy Lungs: CTA CV: tachycardic Abdomen: Soft, non-tender, +old PEG site no drainage. +iliostomy. Right sided Surgical site x 2 with ostomy bag draining large amount yellowish secretion Extremities: +peripheral edema no extremity lymphadenopathy Skin: sacral area wounds superficial no purulence Psych: somnolent . Neuro: alert non verbal on the vent. Lines: - Constitutional Vitals: Vital Signs Temp Pulse Resp BP Pulse Ox 98.4 F 106 H 22 163/86 98 11/29/16 08:00 11/29/16 08:19 11/29/16 08:19 11/29/16 08:19 11/29/16 08:19 Temperature -Last 24 Hours Temperature 98.4 F Temperature 99.2 F Temperature 98.4 F Temperature 98.7 F Temperature 98.6 F Temperature 99.4 F Temperature 98.8 F Temperature 98.7 F - Labs CBC & Chem 7: 11/27/16 06:02 11/29/16 04:52 Labs: Abnormal lab results 11/28/16 11/28/16 11/28/16 Range/Units 12:31 16:09 23:46 ABG Hemoglobin (12.0-16.0) gm/dl Oxyhemoglobin (95.0-99.0) % BUN (7-17) mg/dL Creatinine (0.7-1.2) mg/dL POC Glucose 126 H 111 H 119 H (70-105) 11/29/16 11/29/16 11/29/16 Range/Units 03:33 04:52 05:10 ABG Hemoglobin 7.0 L (12.0-16.0) gm/dl Oxyhemoglobin 94.9 L (95.0-99.0) % BUN 73 H (7-17) mg/dL Creatinine 2.7 H (0.7-1.2) mg/dL POC Glucose 108 H (70-105)
--- NOTE | 2016-11-29 10:54 | Progress Note ---
Assessment and Plan Acute Hypoxemic Respiratory Failure (now with exacerbation and back on MVS) Hypertension (unable to receive p.o. 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 better (re-ordered metoprolol as not on MAR) - continue HD/UF per nephrology (received trial of lasix but may need UF ultimately) - continue to follow electrolytes and correct as necessary - continue TPN in short term till enteric fistula heals (surgery sighed off) - continue GI & VTE prophylaxis - Continue flu & pneumovax per protocol ... remains critically ill on life sustaining interventions including MVS and at risk for further deterioration including ....32' CCT today without overlap Subjective Date of service: 11/29/16 Principal diagnosis: Acute resp failure on MVS; S/P Acute CVA; Acute Encephalopathy; JUANITA Interval history: Patient is seen today for: acute hypoxemic respiratory failure s/p tracheostomy and on MVS Seen and examined at bedside; 24hour events reviewed; nursing and respiratory care staff consulted; no adverse overnight events reported to me; remains on MVS but tolerating PSV trial better today; needs central access for TPN; AMS is persistent; GI stomas still draining; no high grade fevers or chills Objective Vital Signs - 12hr 11/28/16 11/28/16 11/28/16 23:01 23:09 23:31 Temperature 98.4 F Pulse Rate 114 H 114 H Pulse Rate [ From Monitor] Respiratory 13 16 Rate Blood Pressure 160/93 160/93 O2 Sat by Pulse 100 99 Oximetry O2 Sat by Pulse Oximetry [ Assessment] O2 Sat by Pulse Oximetry [ Bilateral Throughout] 11/28/16 11/28/16 11/29/16 23:52 23:55 00:00 Temperature Pulse Rate 114 H 114 H Pulse Rate [ From Monitor] Respiratory 13 Rate Blood Pressure 160/93 149/91 O2 Sat by Pulse 99 Oximetry O2 Sat by Pulse 99 Oximetry [ Assessment] O2 Sat by Pulse Oximetry [ Bilateral Throughout] 11/29/16 11/29/16 11/29/16 00:03 00:07 00:15 Temperature Pulse Rate 117 H 116 H Pulse Rate [ From Monitor] Respiratory 14 14 Rate Blood Pressure 149/91 149/91 O2 Sat by Pulse 100 Oximetry O2 Sat by Pulse Oximetry [ Assessment] O2 Sat by Pulse Oximetry [ Bilateral Throughout] 11/29/16 11/29/16 11/29/16 00:31 01:01 01:31 Temperature Pulse Rate 121 H 121 H 120 H Pulse Rate [ From Monitor] Respiratory 14 12 15 Rate Blood Pressure 149/91 149/91 149/91 O2 Sat by Pulse 98 98 97 Oximetry O2 Sat by Pulse Oximetry [ Assessment] O2 Sat by Pulse Oximetry [ Bilateral Throughout] 11/29/16 11/29/16 11/29/16 02:00 02:29 02:31 Temperature Pulse Rate 119 H 122 H 105 H Pulse Rate [ From Monitor] Respiratory 16 15 Rate Blood Pressure 165/90 165/90 165/90 O2 Sat by Pulse 99 98 Oximetry O2 Sat by Pulse Oximetry [ Assessment] O2 Sat by Pulse Oximetry [ Bilateral Throughout] 11/29/16 11/29/16 11/29/16 03:01 03:18 03:31 Temperature 99.2 F Pulse Rate 106 H 110 H Pulse Rate [ From Monitor] Respiratory 11 L 12 Rate Blood Pressure 165/90 165/90 O2 Sat by Pulse 100 98 Oximetry O2 Sat by Pulse Oximetry [ Assessment] O2 Sat by Pulse Oximetry [ Bilateral Throughout] 11/29/16 11/29/16 11/29/16 03:36 04:00 04:31 Temperature Pulse Rate 110 H 113 H 115 H Pulse Rate [ From Monitor] Respiratory 13 13 Rate Blood Pressure 165/90 164/93 164/93 O2 Sat by Pulse 98 100 100 Oximetry O2 Sat by Pulse Oximetry [ Assessment] O2 Sat by Pulse Oximetry [ Bilateral Throughout] 11/29/16 11/29/16 11/29/16 04:35 05:01 05:31 Temperature Pulse Rate 127 H 129 H Pulse Rate [ From Monitor] Respiratory 14 15 18 Rate Blood Pressure 164/93 164/93 O2 Sat by Pulse 99 99 100 Oximetry O2 Sat by Pulse Oximetry [ Assessment] O2 Sat by Pulse Oximetry [ Bilateral Throughout] 11/29/16 11/29/16 11/29/16 05:48 06:00 06:31 Temperature Pulse Rate 123 H 123 H 127 H Pulse Rate [ From Monitor] Respiratory 18 19 Rate Blood Pressure 164/93 159/86 159/86 O2 Sat by Pulse 100 99 Oximetry O2 Sat by Pulse Oximetry [ Assessment] O2 Sat by Pulse Oximetry [ Bilateral Throughout] 11/29/16 11/29/16 11/29/16 07:01 07:31 08:00 Temperature 98.4 F Pulse Rate 127 H 127 H 125 H Pulse Rate [ 125 H From Monitor] Respiratory 17 17 13 Rate Blood Pressure 159/86 159/86 182/80 O2 Sat by Pulse 99 100 100 Oximetry O2 Sat by Pulse 100 Oximetry [ Assessment] O2 Sat by Pulse Oximetry [ Bilateral Throughout] 11/29/16 11/29/16 11/29/16 08:13 08:19 10:15 Temperature 99.4 F Pulse Rate 123 H 106 H 116 H Pulse Rate [ From Monitor] Respiratory 22 18 Rate Blood Pressure 182/80 163/86 163/83 O2 Sat by Pulse 98 Oximetry O2 Sat by Pulse Oximetry [ Assessment] O2 Sat by Pulse 100 Oximetry [ Bilateral Throughout] 11/29/16 11/29/16 10:30 10:45 Temperature Pulse Rate 118 H 127 H Pulse Rate [ From Monitor] Respiratory Rate Blood Pressure 136/91 173/86 O2 Sat by Pulse Oximetry O2 Sat by Pulse Oximetry [ Assessment] O2 Sat by Pulse Oximetry [ Bilateral Throughout] Constitutional: appears uncomfortable, other (eyes open but not tracking movements in room) Eyes: non-icteric, other (tracheostomy tube in midline of neck) ENT: oropharynx moist, oropharyngeal exudate pre Neck: supple, no lymphadenopathy, no JVD, other (no thyromegaly) Effort: mildly labored Ascultation: Bilateral: diminished breath sounds (bases), rhonchi (bases) Percussion: Bilateral: dull (bases) Cardiovascular: regular rate and rhythm, other (tachycardia improved on IV metoprolol) Gastrointestinal: hypoactive bowel sounds, soft, non-tender, non-distended, other (RLQ stomas with colostomy bags as well as LUQ over PEG stoma) Integumentary: rash (to legs), other (normal skin tugor; no tenting) Extremities: no cyanosis, pulses normal, no ischemia or petechiae, edema Neurologic: pupils equal and round, unable to assess, other (encephalopathic; PERRL) Psychiatric: other (unable to assess; not responsive) CBC and BMP: 11/30/16 04:17 11/30/16 05:45 ABG, PT/INR, D-dimer: ABG POC ABG pH 7.487 (7.35-7.45) H 11/25/16 14:12 ABG pH 7.405 pH Units (7.350-7.450) 11/29/16 03:33 POC ABG pCO2 39.0 (35-45) 11/25/16 14:12 ABG pCO2 39.6 mm Hg 11/29/16 03:33 POC ABG pO2 153 (80-105) H 11/25/16 14:12 ABG pO2 84.3 mm Hg (80.0-90.0) 11/29/16 03:33 POC ABG HCO3 29.5 11/25/16 14:12 POC ABG Total CO2 31 11/25/16 14:12 POC ABG O2 Sat 99 11/25/16 14:12 ABG O2 Saturation 97.1 % (95.0-99.0) 11/29/16 03:33 PT/INR, D-dimer PT 16.8 Sec. (12.2-14.9) H 11/17/16 03:20 INR 1.37 (0.87-1.13) H 11/17/16 03:20 Abnormal lab findings: Abnormal Labs 09/03/16 09/03/16 09/03/16 12:12 15:07 16:20 WBC RBC Hgb Hct MCV MCH MCHC RDW Plt Count Lymph % (Auto) [place] % (Auto) Lymph # [place] # Baso # Seg Neutrophils % Seg Neuts % (Manual) Lymphocytes % (Manual) Monocytes % (Manual) Eosinophils % (Manual) Basophils % (Manual) Nucleated RBC % Seg Neutrophils # Seg Neutrophils # Man Lymphocytes # (Manual) Monocytes # (Manual) Eosinophils # (Manual) PT INR Fibrinogen dRVVT Confirm Interp Factor V Activity POC ABG pH 7.452 H POC ABG pCO2 POC ABG pO2 ABG pO2 ABG HCO3 ABG Hemoglobin Oxyhemoglobin Sodium Potassium Chloride Carbon Dioxide BUN Creatinine Glucose POC Glucose 178 H Lactic Acid Calcium Phosphorus 2.20 L Magnesium 1.60 L Direct Bilirubin AST ALT Alkaline Phosphatase Lactate Dehydrogenase Troponin T C-Reactive Protein Total Protein Albumin Prealbumin Triglycerides Cholesterol LDL Cholesterol Direct HDL Cholesterol Urine pH Urine WBC (Auto) Urine Creatinine Urine Total Protein Fluid Total Protein Vancomycin Trough Rheumatoid Factor Complement C4 Miscellaneous Test Crossmatch 09/03/16 09/03/16 09/03/16 17:57 17:58 23:50 WBC RBC Hgb Hct MCV MCH MCHC RDW Plt Count Lymph % (Auto) [place] % (Auto) Lymph # [place] # Baso # Seg Neutrophils % Seg Neuts % (Manual) Lymphocytes % (Manual) Monocytes % (Manual) Eosinophils % (Manual) Basophils % (Manual) Nucleated RBC % Seg Neutrophils # Seg Neutrophils # Man Lymphocytes # (Manual) Monocytes # (Manual) Eosinophils # (Manual) PT INR Fibrinogen dRVVT Confirm Interp Factor V Activity POC ABG pH POC ABG pCO2 POC ABG pO2 ABG pO2 ABG HCO3 ABG Hemoglobin Oxyhemoglobin Sodium Potassium Chloride Carbon Dioxide BUN Creatinine Glucose POC Glucose 162 H 145 H Lactic Acid Calcium Phosphorus 2.30 L Magnesium Direct Bilirubin AST ALT Alkaline Phosphatase Lactate Dehydrogenase Troponin T C-Reactive Protein Total Protein Albumin Prealbumin Triglycerides Cholesterol LDL Cholesterol Direct HDL Cholesterol Urine pH Urine WBC (Auto) Urine Creatinine Urine Total Protein Fluid Total Protein Vancomycin Trough Rheumatoid Factor Complement C4 Miscellaneous Test Crossmatch 09/04/16 09/04/16 09/04/16 03:31 03:31 05:42 WBC RBC Hgb 9.7 L D Hct MCV 72 L MCH 23 L MCHC RDW 17.5 H Plt Count Lymph % (Auto) 11.1 L [place] % (Auto) Lymph # [place] # Baso # Seg Neutrophils % 84.3 H Seg Neuts % (Manual) Lymphocytes % (Manual) Monocytes % (Manual) Eosinophils % (Manual) Basophils % (Manual) Nucleated RBC % Seg Neutrophils # 8.9 H Seg Neutrophils # Man Lymphocytes # (Manual) Monocytes # (Manual) Eosinophils # (Manual) PT INR Fibrinogen dRVVT Confirm Interp Factor V Activity POC ABG pH POC ABG pCO2 POC ABG pO2 ABG pO2 ABG HCO3 ABG Hemoglobin Oxyhemoglobin Sodium 135 L Potassium 2.9 L* Chloride 97.2 L Carbon Dioxide 19 L BUN Creatinine 1.7 H Glucose 170 H POC Glucose 152 H Lactic Acid Calcium Phosphorus Magnesium Direct Bilirubin AST ALT Alkaline Phosphatase Lactate Dehydrogenase Troponin T C-Reactive Protein Total Protein Albumin Prealbumin Triglycerides 160 H Cholesterol LDL Cholesterol Direct HDL Cholesterol 31 L Urine pH Urine WBC (Auto) Urine Creatinine Urine Total Protein Fluid Total Protein Vancomycin Trough Rheumatoid Factor Complement C4 Miscellaneous Test Crossmatch 09/04/16 09/04/16 09/04/16 11:34 17:46 23:29 WBC RBC Hgb Hct MCV MCH MCHC RDW Plt Count Lymph % (Auto) [place] % (Auto) Lymph # [place] # Baso # Seg Neutrophils % Seg Neuts % (Manual) Lymphocytes % (Manual) Monocytes % (Manual) Eosinophils % (Manual) Basophils % (Manual) Nucleated RBC % Seg Neutrophils # Seg Neutrophils # Man Lymphocytes # (Manual) Monocytes # (Manual) Eosinophils # (Manual) PT INR Fibrinogen dRVVT Confirm Interp Factor V Activity POC ABG pH POC ABG pCO2 POC ABG pO2 ABG pO2 ABG HCO3 ABG Hemoglobin Oxyhemoglobin Sodium Potassium Chloride Carbon Dioxide BUN Creatinine Glucose POC Glucose 165 H 210 H 139 H Lactic Acid Calcium Phosphorus Magnesium Direct Bilirubin AST ALT Alkaline Phosphatase Lactate Dehydrogenase Troponin T C-Reactive Protein Total Protein Albumin Prealbumin Triglycerides Cholesterol LDL Cholesterol Direct HDL Cholesterol Urine pH Urine WBC (Auto) Urine Creatinine Urine Total Protein Fluid Total Protein Vancomycin Trough Rheumatoid Factor Complement C4 Miscellaneous Test Crossmatch 09/05/16 09/05/16 09/05/16 04:05 04:05 05:38 WBC RBC Hgb Hct MCV 76 L D MCH 23 L MCHC RDW 17.8 H Plt Count Lymph % (Auto) [place] % (Auto) Lymph # [place] # Baso # Seg Neutrophils % Seg Neuts % (Manual) Lymphocytes % (Manual) Monocytes % (Manual) Eosinophils % (Manual) Basophils % (Manual) Nucleated RBC % Seg Neutrophils # Seg Neutrophils # Man Lymphocytes # (Manual) Monocytes # (Manual) Eosinophils # (Manual) PT INR Fibrinogen dRVVT Confirm Interp Factor V Activity POC ABG pH POC ABG pCO2 POC ABG pO2 ABG pO2 ABG HCO3 ABG Hemoglobin Oxyhemoglobin Sodium 134 L Potassium Chloride Carbon Dioxide 18 L BUN Creatinine 1.8 H Glucose 192 H POC Glucose 175 H Lactic Acid Calcium Phosphorus Magnesium Direct Bilirubin AST ALT Alkaline Phosphatase Lactate Dehydrogenase Troponin T C-Reactive Protein Total Protein Albumin Prealbumin Triglycerides Cholesterol LDL Cholesterol Direct HDL Cholesterol Urine pH Urine WBC (Auto) Urine Creatinine Urine Total Protein Fluid Total Protein Vancomycin Trough Rheumatoid Factor Complement C4 Miscellaneous Test Crossmatch 09/05/16 09/05/16 09/05/16 11:38 17:48 23:22 WBC RBC Hgb Hct MCV MCH MCHC RDW Plt Count Lymph % (Auto) [place] % (Auto) Lymph # [place] # [place] # Seg Neutrophils % Seg Neuts % (Manual) Lymphocytes % (Manual) Monocytes % (Manual) Eosinophils % (Manual) Basophils % (Manual) Nucleated RBC % Seg Neutrophils # Seg Neutrophils # Man Lymphocytes # (Manual) Monocytes # (Manual) Eosinophils # (Manual) PT INR Fibrinogen dRVVT Confirm Interp Factor V Activity POC ABG pH POC ABG pCO2 POC ABG pO2 ABG pO2 ABG HCO3 ABG Hemoglobin Oxyhemoglobin Sodium Potassium Chloride Carbon Dioxide BUN Creatinine Glucose POC Glucose 164 H 186 H 195 H Lactic Acid Calcium Phosphorus Magnesium Direct Bilirubin AST ALT Alkaline Phosphatase Lactate Dehydrogenase Troponin T C-Reactive Protein Total Protein Albumin Prealbumin Triglycerides Cholesterol LDL Cholesterol Direct HDL Cholesterol Urine pH Urine WBC (Auto) Urine Creatinine Urine Total Protein Fluid Total Protein Vancomycin Trough Rheumatoid Factor Complement C4 Miscellaneous Test Crossmatch 09/06/16 09/06/16 09/06/16 04:12 05:59 07:32 WBC RBC Hgb Hct MCV MCH MCHC RDW Plt Count Lymph % (Auto) [place] % (Auto) Lymph # [place] # [place] # Seg Neutrophils % Seg Neuts % (Manual) Lymphocytes % (Manual) Monocytes % (Manual) Eosinophils % (Manual) Basophils % (Manual) Nucleated RBC % Seg Neutrophils # Seg Neutrophils # Man Lymphocytes # (Manual) Monocytes # (Manual) Eosinophils # (Manual) PT INR Fibrinogen dRVVT Confirm Interp Factor V Activity POC ABG pH 7.514 H POC ABG pCO2 29.1 L POC ABG pO2 72 L ABG pO2 ABG HCO3 ABG Hemoglobin Oxyhemoglobin Sodium 133 L Potassium 3.4 L Chloride 94.9 L Carbon Dioxide 19 L BUN 30 H Creatinine 2.1 H Glucose 139 H POC Glucose 146 H Lactic Acid Calcium Phosphorus Magnesium Direct Bilirubin AST ALT Alkaline Phosphatase Lactate Dehydrogenase Troponin T C-Reactive Protein Total Protein Albumin Prealbumin Triglycerides Cholesterol LDL Cholesterol Direct HDL Cholesterol Urine pH Urine WBC (Auto) Urine Creatinine Urine Total Protein Fluid Total Protein Vancomycin Trough Rheumatoid Factor Complement C4 Miscellaneous Test Crossmatch 09/06/16 09/06/16 09/06/16 11:57 17:58 19:02 WBC RBC Hgb Hct MCV MCH MCHC RDW Plt Count Lymph % (Auto) [place] % (Auto) Lymph # [place] # Baso # Seg Neutrophils % Seg Neuts % (Manual) Lymphocytes % (Manual) Monocytes % (Manual) Eosinophils % (Manual) Basophils % (Manual) Nucleated RBC % Seg Neutrophils # Seg Neutrophils # Man Lymphocytes # (Manual) Monocytes # (Manual) Eosinophils # (Manual) PT INR Fibrinogen dRVVT Confirm Interp Factor V Activity POC ABG pH 7.465 H POC ABG pCO2 32.0 L POC ABG pO2 ABG pO2 ABG HCO3 ABG Hemoglobin Oxyhemoglobin Sodium Potassium Chloride Carbon Dioxide BUN Creatinine Glucose POC Glucose 165 H 160 H Lactic Acid Calcium Phosphorus Magnesium Direct Bilirubin AST ALT Alkaline Phosphatase Lactate Dehydrogenase Troponin T C-Reactive Protein Total Protein Albumin Prealbumin Triglycerides Cholesterol LDL Cholesterol Direct HDL Cholesterol Urine pH Urine WBC (Auto) Urine Creatinine Urine Total Protein Fluid Total Protein Vancomycin Trough Rheumatoid Factor Complement C4 Miscellaneous Test Crossmatch 09/06/16 09/07/16 09/07/16 23:45 02:47 02:47 WBC RBC Hgb Hct MCV MCH MCHC RDW Plt Count Lymph % (Auto) [place] % (Auto) Lymph # [place] # Baso # Seg Neutrophils % Seg Neuts % (Manual) Lymphocytes % (Manual) Monocytes % (Manual) Eosinophils % (Manual) Basophils % (Manual) Nucleated RBC % Seg Neutrophils # Seg Neutrophils # Man Lymphocytes # (Manual) Monocytes # (Manual) Eosinophils # (Manual) PT INR Fibrinogen dRVVT Confirm Interp Factor V Activity POC ABG pH POC ABG pCO2 POC ABG pO2 ABG pO2 ABG HCO3 ABG Hemoglobin Oxyhemoglobin Sodium Potassium Chloride Carbon Dioxide BUN Creatinine Glucose POC Glucose 204 H Lactic Acid Calcium Phosphorus Magnesium Direct Bilirubin AST ALT Alkaline Phosphatase Lactate Dehydrogenase Troponin T C-Reactive Protein Total Protein Albumin Prealbumin Triglycerides Cholesterol LDL Cholesterol Direct HDL Cholesterol Urine pH Urine WBC (Auto) 68.0 H Urine Creatinine 106.1 H Urine Total Protein Fluid Total Protein Vancomycin Trough Rheumatoid Factor Complement C4 Miscellaneous Test Crossmatch 09/07/16 09/07/16 09/07/16 04:50 06:19 06:39 WBC RBC Hgb Hct MCV MCH MCHC RDW Plt Count Lymph % (Auto) [place] % (Auto) Lymph # [place] # Baso # Seg Neutrophils % Seg Neuts % (Manual) Lymphocytes % (Manual) Monocytes % (Manual) Eosinophils % (Manual) Basophils % (Manual) Nucleated RBC % Seg Neutrophils # Seg Neutrophils # Man Lymphocytes # (Manual) Monocytes # (Manual) Eosinophils # (Manual) PT INR Fibrinogen dRVVT Confirm Interp Factor V Activity POC ABG pH 7.457 H POC ABG pCO2 32.1 L POC ABG pO2 76 L ABG pO2 ABG HCO3 ABG Hemoglobin Oxyhemoglobin Sodium 132 L Potassium Chloride 94.7 L Carbon Dioxide BUN 53 H Creatinine 2.9 H Glucose 151 H POC Glucose 149 H Lactic Acid Calcium Phosphorus Magnesium Direct Bilirubin AST ALT Alkaline Phosphatase Lactate Dehydrogenase Troponin T C-Reactive Protein Total Protein Albumin Prealbumin Triglycerides Cholesterol LDL Cholesterol Direct HDL Cholesterol Urine pH Urine WBC (Auto) Urine Creatinine Urine Total Protein Fluid Total Protein Vancomycin Trough Rheumatoid Factor Complement C4 Miscellaneous Test Crossmatch 09/07/16 09/07/16 09/07/16 09:20 11:43 11:43 WBC 19.4 H RBC Hgb 8.3 L Hct 26.4 L D MCV 72 L D MCH 22 L MCHC RDW 17.9 H Plt Count Lymph % (Auto) 8.5 L [place] % (Auto) Lymph # [place] # 1.0 H Baso # Seg Neutrophils % 85.8 H Seg Neuts % (Manual) Lymphocytes % (Manual) Monocytes % (Manual) Eosinophils % (Manual) Basophils % (Manual) Nucleated RBC % Seg Neutrophils # 16.6 H Seg Neutrophils # Man Lymphocytes # (Manual) Monocytes # (Manual) Eosinophils # (Manual) PT INR Fibrinogen dRVVT Confirm Interp Factor V Activity POC ABG pH POC ABG pCO2 POC ABG pO2 ABG pO2 ABG HCO3 ABG Hemoglobin Oxyhemoglobin Sodium 134 L Potassium Chloride 97.2 L Carbon Dioxide 20 L BUN 58 H Creatinine 2.9 H Glucose 147 H POC Glucose Lactic Acid Calcium Phosphorus 2.40 L Magnesium 2.40 H Direct Bilirubin AST ALT Alkaline Phosphatase Lactate Dehydrogenase Troponin T C-Reactive Protein Total Protein 5.8 L Albumin 2.2 L Prealbumin Triglycerides Cholesterol LDL Cholesterol Direct HDL Cholesterol Urine pH Urine WBC (Auto) Urine Creatinine Urine Total Protein Fluid Total Protein Vancomycin Trough Rheumatoid Factor Complement C4 58 H Miscellaneous Test Crossmatch 09/07/16 09/07/16 09/07/16 11:50 16:00 17:31 WBC RBC Hgb Hct MCV MCH MCHC RDW Plt Count Lymph % (Auto) [place] % (Auto) Lymph # [place] # Baso # Seg Neutrophils % Seg Neuts % (Manual) Lymphocytes % (Manual) Monocytes % (Manual) Eosinophils % (Manual) Basophils % (Manual) Nucleated RBC % Seg Neutrophils # Seg Neutrophils # Man Lymphocytes # (Manual) Monocytes # (Manual) Eosinophils # (Manual) PT INR Fibrinogen dRVVT Confirm Interp Factor V Activity POC ABG pH POC ABG pCO2 POC ABG pO2 158 H ABG pO2 ABG HCO3 ABG Hemoglobin Oxyhemoglobin Sodium Potassium Chloride Carbon Dioxide BUN Creatinine Glucose POC Glucose 175 H Lactic Acid Calcium Phosphorus Magnesium Direct Bilirubin AST ALT Alkaline Phosphatase Lactate Dehydrogenase Troponin T C-Reactive Protein Total Protein Albumin Prealbumin Triglycerides Cholesterol LDL Cholesterol Direct HDL Cholesterol Urine pH Urine WBC (Auto) Urine Creatinine 66.3 H Urine Total Protein Fluid Total Protein Vancomycin Trough Rheumatoid Factor Complement C4 Miscellaneous Test Crossmatch 09/07/16 09/08/16 09/08/16 23:50 05:46 06:18 WBC 17.8 H RBC 3.58 L Hgb 8.1 L Hct 25.5 L MCV 71 L MCH 23 L MCHC RDW 18.4 H Plt Count Lymph % (Auto) [place] % (Auto) Lymph # [place] # Baso # Seg Neutrophils % Seg Neuts % (Manual) 92.0 H Lymphocytes % (Manual) 6.0 L Monocytes % (Manual) Eosinophils % (Manual) Basophils % (Manual) Nucleated RBC % Seg Neutrophils # Seg Neutrophils # Man 16.4 H Lymphocytes # (Manual) 1.1 L Monocytes # (Manual) Eosinophils # (Manual) PT INR Fibrinogen dRVVT Confirm Interp Factor V Activity POC ABG pH POC ABG pCO2 34.3 L POC ABG pO2 71 L ABG pO2 ABG HCO3 ABG Hemoglobin Oxyhemoglobin Sodium Potassium Chloride Carbon Dioxide BUN Creatinine Glucose POC Glucose 216 H Lactic Acid Calcium Phosphorus Magnesium Direct Bilirubin AST ALT Alkaline Phosphatase Lactate Dehydrogenase Troponin T C-Reactive Protein Total Protein Albumin Prealbumin Triglycerides Cholesterol LDL Cholesterol Direct HDL Cholesterol Urine pH Urine WBC (Auto) Urine Creatinine Urine Total Protein Fluid Total Protein Vancomycin Trough Rheumatoid Factor Complement C4 Miscellaneous Test Crossmatch 09/08/16 09/08/16 09/08/16 06:18 06:51 10:55 WBC RBC Hgb Hct MCV MCH MCHC RDW Plt Count Lymph % (Auto) [place] % (Auto) Lymph # [place] # Baso # Seg Neutrophils % Seg Neuts % (Manual) Lymphocytes % (Manual) Monocytes % (Manual) Eosinophils % (Manual) Basophils % (Manual) Nucleated RBC % Seg Neutrophils # Seg Neutrophils # Man Lymphocytes # (Manual) Monocytes # (Manual) Eosinophils # (Manual) PT INR Fibrinogen dRVVT Confirm Interp Factor V Activity POC ABG pH POC ABG pCO2 POC ABG pO2 ABG pO2 ABG HCO3 ABG Hemoglobin Oxyhemoglobin Sodium 133 L Potassium Chloride 96.9 L Carbon Dioxide 20 L BUN 63 H Creatinine 2.7 H Glucose 195 H POC Glucose 204 H 169 H Lactic Acid Calcium Phosphorus Magnesium Direct Bilirubin AST ALT Alkaline Phosphatase Lactate Dehydrogenase Troponin T C-Reactive Protein Total Protein Albumin Prealbumin Triglycerides Cholesterol LDL Cholesterol Direct HDL Cholesterol Urine pH Urine WBC (Auto) Urine Creatinine Urine Total Protein Fluid Total Protein Vancomycin Trough Rheumatoid Factor Complement C4 Miscellaneous Test Crossmatch 09/08/16 09/08/16 09/08/16 11:48 11:48 11:48 WBC RBC Hgb Hct MCV MCH MCHC RDW Plt Count Lymph % (Auto) [place] % (Auto) Lymph # [place] # Baso # Seg Neutrophils % Seg Neuts % (Manual) Lymphocytes % (Manual) Monocytes % (Manual) Eosinophils % (Manual) Basophils % (Manual) Nucleated RBC % Seg Neutrophils # Seg Neutrophils # Man Lymphocytes # (Manual) Monocytes # (Manual) Eosinophils # (Manual) PT INR Fibrinogen 750 H dRVVT Confirm Interp Factor V Activity POC ABG pH POC ABG pCO2 POC ABG pO2 ABG pO2 ABG HCO3 ABG Hemoglobin Oxyhemoglobin Sodium Potassium Chloride Carbon Dioxide BUN Creatinine Glucose POC Glucose Lactic Acid Calcium Phosphorus Magnesium Direct Bilirubin AST ALT Alkaline Phosphatase Lactate Dehydrogenase Troponin T C-Reactive Protein 15.70 H Total Protein Albumin Prealbumin Triglycerides Cholesterol LDL Cholesterol Direct HDL Cholesterol Urine pH Urine WBC (Auto) Urine Creatinine Urine Total Protein Fluid Total Protein Vancomycin Trough Rheumatoid Factor 24 H Complement C4 Miscellaneous Test Crossmatch 09/08/16 09/08/16 09/09/16 15:35 18:25 00:24 WBC RBC Hgb Hct MCV MCH MCHC RDW Plt Count Lymph % (Auto) [place] % (Auto) Lymph # [place] # Baso # Seg Neutrophils % Seg Neuts % (Manual) Lymphocytes % (Manual) Monocytes % (Manual) Eosinophils % (Manual) Basophils % (Manual) Nucleated RBC % Seg Neutrophils # Seg Neutrophils # Man Lymphocytes # (Manual) Monocytes # (Manual) Eosinophils # (Manual) PT INR Fibrinogen dRVVT Confirm Interp Factor V Activity 182 H POC ABG pH POC ABG pCO2 POC ABG pO2 ABG pO2 ABG HCO3 ABG Hemoglobin Oxyhemoglobin Sodium Potassium Chloride Carbon Dioxide BUN Creatinine Glucose POC Glucose 184 H 216 H Lactic Acid Calcium Phosphorus Magnesium Direct Bilirubin AST ALT Alkaline Phosphatase Lactate Dehydrogenase Troponin T C-Reactive Protein Total Protein Albumin Prealbumin Triglycerides Cholesterol LDL Cholesterol Direct HDL Cholesterol Urine pH Urine WBC (Auto) Urine Creatinine Urine Total Protein Fluid Total Protein Vancomycin Trough Rheumatoid Factor Complement C4 Miscellaneous Test Crossmatch 09/09/16 09/09/16 09/09/16 03:00 03:00 04:04 WBC 27.9 H RBC Hgb 8.7 L Hct 28.1 L MCV 72 L MCH 22 L MCHC RDW 18.4 H Plt Count 485 H Lymph % (Auto) [place] % (Auto) Lymph # [place] # Baso # Seg Neutrophils % Seg Neuts % (Manual) 77.0 H Lymphocytes % (Manual) 9.0 L Monocytes % (Manual) Eosinophils % (Manual) Basophils % (Manual) Nucleated RBC % Seg Neutrophils # Seg Neutrophils # Man 21.5 H Lymphocytes # (Manual) Monocytes # (Manual) 2.0 H Eosinophils # (Manual) PT INR Fibrinogen dRVVT Confirm Interp Factor V Activity POC ABG pH POC ABG pCO2 POC ABG pO2 121 H ABG pO2 ABG HCO3 ABG Hemoglobin Oxyhemoglobin Sodium 135 L Potassium Chloride 96.3 L Carbon Dioxide 21 L BUN 83 H Creatinine 3.0 H Glucose 135 H POC Glucose Lactic Acid Calcium Phosphorus Magnesium Direct Bilirubin AST ALT Alkaline Phosphatase Lactate Dehydrogenase Troponin T C-Reactive Protein Total Protein Albumin Prealbumin Triglycerides Cholesterol LDL Cholesterol Direct HDL Cholesterol Urine pH Urine WBC (Auto) Urine Creatinine Urine Total Protein Fluid Total Protein Vancomycin Trough Rheumatoid Factor Complement C4 Miscellaneous Test Crossmatch 09/09/16 09/09/16 09/09/16 05:41 11:55 14:13 WBC RBC Hgb Hct MCV MCH MCHC RDW Plt Count Lymph % (Auto) [place] % (Auto) Lymph # [place] # Baso # Seg Neutrophils % Seg Neuts % (Manual) Lymphocytes % (Manual) Monocytes % (Manual) Eosinophils % (Manual) Basophils % (Manual) Nucleated RBC % Seg Neutrophils # Seg Neutrophils # Man Lymphocytes # (Manual) Monocytes # (Manual) Eosinophils # (Manual) PT INR Fibrinogen dRVVT Confirm Interp Factor V Activity POC ABG pH POC ABG pCO2 POC ABG pO2 ABG pO2 ABG HCO3 ABG Hemoglobin Oxyhemoglobin Sodium Potassium Chloride Carbon Dioxide BUN Creatinine Glucose POC Glucose 155 H 186 H Lactic Acid Calcium Phosphorus Magnesium Direct Bilirubin AST ALT Alkaline Phosphatase Lactate Dehydrogenase Troponin T C-Reactive Protein Total Protein Albumin Prealbumin Triglycerides Cholesterol LDL Cholesterol Direct HDL Cholesterol Urine pH Urine WBC (Auto) 25.0 H Urine Creatinine Urine Total Protein Fluid Total Protein Vancomycin Trough Rheumatoid Factor Complement C4 Miscellaneous Test Crossmatch 09/09/16 09/09/16 09/10/16 17:33 23:13 05:09 WBC RBC Hgb Hct MCV MCH MCHC RDW Plt Count Lymph % (Auto) [place] % (Auto) Lymph # [place] # Baso # Seg Neutrophils % Seg Neuts % (Manual) Lymphocytes % (Manual) Monocytes % (Manual) Eosinophils % (Manual) Basophils % (Manual) Nucleated RBC % Seg Neutrophils # Seg Neutrophils # Man Lymphocytes # (Manual) Monocytes # (Manual) Eosinophils # (Manual) PT INR Fibrinogen dRVVT Confirm Interp Factor V Activity POC ABG pH POC ABG pCO2 POC ABG pO2 74 L ABG pO2 ABG HCO3 ABG Hemoglobin Oxyhemoglobin Sodium Potassium Chloride Carbon Dioxide BUN Creatinine Glucose POC Glucose 211 H 215 H Lactic Acid Calcium Phosphorus Magnesium Direct Bilirubin AST ALT Alkaline Phosphatase Lactate Dehydrogenase Troponin T C-Reactive Protein Total Protein Albumin Prealbumin Triglycerides Cholesterol LDL Cholesterol Direct HDL Cholesterol Urine pH Urine WBC (Auto) Urine Creatinine Urine Total Protein Fluid Total Protein Vancomycin Trough Rheumatoid Factor Complement C4 Miscellaneous Test Crossmatch 09/10/16 09/10/16 09/10/16 05:17 05:17 11:31 WBC 15.8 H RBC 3.25 L Hgb 7.3 L Hct 22.9 L MCV 71 L MCH 23 L MCHC RDW 18.4 H Plt Count Lymph % (Auto) [place] % (Auto) Lymph # [place] # Baso # Seg Neutrophils % Seg Neuts % (Manual) 91.0 H Lymphocytes % (Manual) 4.0 L Monocytes % (Manual) Eosinophils % (Manual) Basophils % (Manual) Nucleated RBC % Seg Neutrophils # Seg Neutrophils # Man 14.4 H Lymphocytes # (Manual) 0.6 L Monocytes # (Manual) Eosinophils # (Manual) PT INR Fibrinogen dRVVT Confirm Interp Factor V Activity POC ABG pH POC ABG pCO2 POC ABG pO2 ABG pO2 ABG HCO3 ABG Hemoglobin Oxyhemoglobin Sodium Potassium Chloride Carbon Dioxide 21 L BUN 93 H Creatinine 2.9 H Glucose 146 H POC Glucose 188 H Lactic Acid Calcium 8.1 L Phosphorus Magnesium Direct Bilirubin AST ALT Alkaline Phosphatase Lactate Dehydrogenase Troponin T C-Reactive Protein Total Protein Albumin Prealbumin Triglycerides Cholesterol LDL Cholesterol Direct HDL Cholesterol Urine pH Urine WBC (Auto) Urine Creatinine Urine Total Protein Fluid Total Protein Vancomycin Trough Rheumatoid Factor Complement C4 Miscellaneous Test Crossmatch 09/10/16 09/10/16 09/10/16 13:17 17:20 23:32 WBC RBC Hgb Hct MCV MCH MCHC RDW Plt Count Lymph % (Auto) [place] % (Auto) Lymph # [place] # Baso # Seg Neutrophils % Seg Neuts % (Manual) Lymphocytes % (Manual) Monocytes % (Manual) Eosinophils % (Manual) Basophils % (Manual) Nucleated RBC % Seg Neutrophils # Seg Neutrophils # Man Lymphocytes # (Manual) Monocytes # (Manual) Eosinophils # (Manual) PT INR Fibrinogen dRVVT Confirm Interp Factor V Activity POC ABG pH POC ABG pCO2 POC ABG pO2 ABG pO2 ABG HCO3 ABG Hemoglobin Oxyhemoglobin Sodium Potassium Chloride Carbon Dioxide BUN Creatinine Glucose POC Glucose 199 H 186 H Lactic Acid Calcium Phosphorus Magnesium Direct Bilirubin AST ALT Alkaline Phosphatase Lactate Dehydrogenase Troponin T C-Reactive Protein Total Protein Albumin Prealbumin Triglycerides Cholesterol LDL Cholesterol Direct HDL Cholesterol Urine pH Urine WBC (Auto) Urine Creatinine Urine Total Protein Fluid Total Protein Vancomycin Trough Rheumatoid Factor Complement C4 Miscellaneous Test Crossmatch See Detail 09/11/16 09/11/16 09/11/16 05:10 05:10 05:17 WBC 28.4 H RBC Hgb 9.2 L Hct 29.3 L D MCV 73 L MCH 23 L MCHC RDW 18.9 H Plt Count 452 H Lymph % (Auto) [place] % (Auto) Lymph # [place] # Baso # Seg Neutrophils % Seg Neuts % (Manual) 89.5 H Lymphocytes % (Manual) 2.0 L Monocytes % (Manual) Eosinophils % (Manual) Basophils % (Manual) Nucleated RBC % Seg Neutrophils # Seg Neutrophils # Man 25.4 H Lymphocytes # (Manual) 0.6 L Monocytes # (Manual) 1.3 H Eosinophils # (Manual) PT INR Fibrinogen dRVVT Confirm Interp Factor V Activity POC ABG pH POC ABG pCO2 POC ABG pO2 ABG pO2 ABG HCO3 ABG Hemoglobin Oxyhemoglobin Sodium 136 L Potassium Chloride Carbon Dioxide 18 L BUN 107 H Creatinine 2.6 H Glucose 187 H POC Glucose 230 H Lactic Acid Calcium 8.3 L Phosphorus Magnesium Direct Bilirubin AST ALT Alkaline Phosphatase Lactate Dehydrogenase Troponin T C-Reactive Protein Total Protein Albumin Prealbumin Triglycerides Cholesterol LDL Cholesterol Direct HDL Cholesterol Urine pH Urine WBC (Auto) Urine Creatinine Urine Total Protein Fluid Total Protein Vancomycin Trough Rheumatoid Factor Complement C4 Miscellaneous Test Crossmatch 09/11/16 09/11/16 09/11/16 05:55 12:02 17:32 WBC RBC Hgb Hct MCV MCH MCHC RDW Plt Count Lymph % (Auto) [place] % (Auto) Lymph # [place] # Baso # Seg Neutrophils % Seg Neuts % (Manual) Lymphocytes % (Manual) Monocytes % (Manual) Eosinophils % (Manual) Basophils % (Manual) Nucleated RBC % Seg Neutrophils # Seg Neutrophils # Man Lymphocytes # (Manual) Monocytes # (Manual) Eosinophils # (Manual) PT INR Fibrinogen dRVVT Confirm Interp Factor V Activity POC ABG pH POC ABG pCO2 33.8 L POC ABG pO2 ABG pO2 ABG HCO3 ABG Hemoglobin Oxyhemoglobin Sodium Potassium Chloride Carbon Dioxide BUN Creatinine Glucose POC Glucose 191 H 239 H Lactic Acid Calcium Phosphorus Magnesium Direct Bilirubin AST ALT Alkaline Phosphatase Lactate Dehydrogenase Troponin T C-Reactive Protein Total Protein Albumin Prealbumin Triglycerides Cholesterol LDL Cholesterol Direct HDL Cholesterol Urine pH Urine WBC (Auto) Urine Creatinine Urine Total Protein Fluid Total Protein Vancomycin Trough Rheumatoid Factor Complement C4 Miscellaneous Test Crossmatch 09/11/16 09/12/16 09/12/16 23:52 05:09 05:32 WBC RBC Hgb Hct MCV MCH MCHC RDW Plt Count Lymph % (Auto) [place] % (Auto) Lymph # [place] # Baso # Seg Neutrophils % Seg Neuts % (Manual) Lymphocytes % (Manual) Monocytes % (Manual) Eosinophils % (Manual) Basophils % (Manual) Nucleated RBC % Seg Neutrophils # Seg Neutrophils # Man Lymphocytes # (Manual) Monocytes # (Manual) Eosinophils # (Manual) PT INR Fibrinogen dRVVT Confirm Interp Factor V Activity POC ABG pH POC ABG pCO2 34.6 L POC ABG pO2 ABG pO2 ABG HCO3 ABG Hemoglobin Oxyhemoglobin Sodium Potassium Chloride Carbon Dioxide BUN Creatinine Glucose POC Glucose 265 H 184 H Lactic Acid Calcium Phosphorus Magnesium Direct Bilirubin AST ALT Alkaline Phosphatase Lactate Dehydrogenase Troponin T C-Reactive Protein Total Protein Albumin Prealbumin Triglycerides Cholesterol LDL Cholesterol Direct HDL Cholesterol Urine pH Urine WBC (Auto) Urine Creatinine Urine Total Protein Fluid Total Protein Vancomycin Trough Rheumatoid Factor Complement C4 Miscellaneous Test Crossmatch 09/12/16 09/12/16 09/12/16 06:45 06:45 07:22 WBC 31.7 H RBC 3.54 L Hgb 8.3 L Hct 25.9 L MCV 73 L MCH 23 L MCHC RDW 18.9 H Plt Count Lymph % (Auto) [place] % (Auto) Lymph # [place] # Baso # Seg Neutrophils % Seg Neuts % (Manual) 88.5 H Lymphocytes % (Manual) 4.5 L Monocytes % (Manual) Eosinophils % (Manual) Basophils % (Manual) Nucleated RBC % Seg Neutrophils # Seg Neutrophils # Man 28.1 H Lymphocytes # (Manual) Monocytes # (Manual) 1.0 H Eosinophils # (Manual) PT INR Fibrinogen dRVVT Confirm Interp Factor V Activity POC ABG pH POC ABG pCO2 POC ABG pO2 ABG pO2 ABG HCO3 ABG Hemoglobin Oxyhemoglobin Sodium Potassium Chloride Carbon Dioxide 20 L BUN 115 H Creatinine 2.7 H Glucose 165 H POC Glucose Lactic Acid Calcium 8.0 L Phosphorus Magnesium Direct Bilirubin AST ALT Alkaline Phosphatase Lactate Dehydrogenase Troponin T C-Reactive Protein Total Protein Albumin Prealbumin Triglycerides 217 H Cholesterol LDL Cholesterol Direct HDL Cholesterol Urine pH Urine WBC (Auto) Urine Creatinine Urine Total Protein Fluid Total Protein Vancomycin Trough Rheumatoid Factor Complement C4 Miscellaneous Test Crossmatch 09/12/16 09/12/16 09/12/16 07:22 09:59 12:21 WBC RBC Hgb Hct MCV MCH MCHC RDW Plt Count Lymph % (Auto) [place] % (Auto) Lymph # [place] # Baso # Seg Neutrophils % Seg Neuts % (Manual) Lymphocytes % (Manual) Monocytes % (Manual) Eosinophils % (Manual) Basophils % (Manual) Nucleated RBC % Seg Neutrophils # Seg Neutrophils # Man Lymphocytes # (Manual) Monocytes # (Manual) Eosinophils # (Manual) PT INR Fibrinogen dRVVT Confirm Interp Positive H Factor V Activity POC ABG pH POC ABG pCO2 POC ABG pO2 ABG pO2 ABG HCO3 ABG Hemoglobin Oxyhemoglobin Sodium Potassium Chloride Carbon Dioxide BUN Creatinine Glucose POC Glucose 224 H Lactic Acid Calcium Phosphorus Magnesium Direct Bilirubin AST ALT Alkaline Phosphatase Lactate Dehydrogenase Troponin T C-Reactive Protein 1.70 H Total Protein Albumin Prealbumin Triglycerides Cholesterol LDL Cholesterol Direct HDL Cholesterol Urine pH Urine WBC (Auto) Urine Creatinine Urine Total Protein Fluid Total Protein Vancomycin Trough Rheumatoid Factor Complement C4 Miscellaneous Test Crossmatch 09/12/16 09/12/16 09/13/16 16:51 23:28 04:00 WBC 45.0 H* RBC Hgb 9.4 L Hct MCV 75 L MCH 23 L MCHC RDW 19.0 H Plt Count 470 H Lymph % (Auto) [place] % (Auto) Lymph # [place] # Baso # Seg Neutrophils % Seg Neuts % (Manual) 89.0 H Lymphocytes % (Manual) 5.0 L Monocytes % (Manual) Eosinophils % (Manual) Basophils % (Manual) Nucleated RBC % Seg Neutrophils # Seg Neutrophils # Man 40.1 H Lymphocytes # (Manual) Monocytes # (Manual) Eosinophils # (Manual) PT INR Fibrinogen dRVVT Confirm Interp Factor V Activity POC ABG pH POC ABG pCO2 POC ABG pO2 ABG pO2 ABG HCO3 ABG Hemoglobin Oxyhemoglobin Sodium Potassium Chloride Carbon Dioxide BUN Creatinine Glucose POC Glucose 169 H 150 H Lactic Acid Calcium Phosphorus Magnesium Direct Bilirubin AST ALT Alkaline Phosphatase Lactate Dehydrogenase Troponin T C-Reactive Protein Total Protein Albumin Prealbumin Triglycerides Cholesterol LDL Cholesterol Direct HDL Cholesterol Urine pH Urine WBC (Auto) Urine Creatinine Urine Total Protein Fluid Total Protein Vancomycin Trough Rheumatoid Factor Complement C4 Miscellaneous Test Crossmatch 09/13/16 09/13/16 09/13/16 04:00 11:26 17:31 WBC RBC Hgb Hct MCV MCH MCHC RDW Plt Count Lymph % (Auto) [place] % (Auto) Lymph # [place] # Baso # Seg Neutrophils % Seg Neuts % (Manual) Lymphocytes % (Manual) Monocytes % (Manual) Eosinophils % (Manual) Basophils % (Manual) Nucleated RBC % Seg Neutrophils # Seg Neutrophils # Man Lymphocytes # (Manual) Monocytes # (Manual) Eosinophils # (Manual) PT INR Fibrinogen dRVVT Confirm Interp Factor V Activity POC ABG pH POC ABG pCO2 POC ABG pO2 ABG pO2 ABG HCO3 ABG Hemoglobin Oxyhemoglobin Sodium Potassium Chloride Carbon Dioxide 20 L BUN 116 H Creatinine 3.0 H Glucose 172 H POC Glucose 140 H 183 H Lactic Acid Calcium Phosphorus Magnesium Direct Bilirubin AST ALT Alkaline Phosphatase Lactate Dehydrogenase Troponin T C-Reactive Protein Total Protein 6.2 L Albumin 2.9 L Prealbumin Triglycerides Cholesterol LDL Cholesterol Direct HDL Cholesterol Urine pH Urine WBC (Auto) Urine Creatinine Urine Total Protein Fluid Total Protein Vancomycin Trough Rheumatoid Factor Complement C4 Miscellaneous Test Crossmatch 09/13/16 09/14/16 09/14/16 23:23 04:06 04:07 WBC 29.4 H RBC Hgb 8.9 L Hct 27.3 L MCV 75 L MCH 24 L MCHC RDW 19.1 H Plt Count Lymph % (Auto) [place] % (Auto) Lymph # [place] # Baso # Seg Neutrophils % Seg Neuts % (Manual) 84.0 H Lymphocytes % (Manual) 6.0 L Monocytes % (Manual) 9.0 H Eosinophils % (Manual) Basophils % (Manual) Nucleated RBC % Seg Neutrophils # Seg Neutrophils # Man 24.7 H Lymphocytes # (Manual) Monocytes # (Manual) 2.6 H Eosinophils # (Manual) PT INR Fibrinogen dRVVT Confirm Interp Factor V Activity POC ABG pH 7.342 L POC ABG pCO2 POC ABG pO2 116 H ABG pO2 ABG HCO3 ABG Hemoglobin Oxyhemoglobin Sodium Potassium Chloride Carbon Dioxide BUN Creatinine Glucose POC Glucose 154 H Lactic Acid Calcium Phosphorus Magnesium Direct Bilirubin AST ALT Alkaline Phosphatase Lactate Dehydrogenase Troponin T C-Reactive Protein Total Protein Albumin Prealbumin Triglycerides Cholesterol LDL Cholesterol Direct HDL Cholesterol Urine pH Urine WBC (Auto) Urine Creatinine Urine Total Protein Fluid Total Protein Vancomycin Trough Rheumatoid Factor Complement C4 Miscellaneous Test Crossmatch 09/14/16 09/14/16 09/14/16 04:07 05:29 12:19 WBC RBC Hgb Hct MCV MCH MCHC RDW Plt Count Lymph % (Auto) [place] % (Auto) Lymph # [place] # Baso # Seg Neutrophils % Seg Neuts % (Manual) Lymphocytes % (Manual) Monocytes % (Manual) Eosinophils % (Manual) Basophils % (Manual) Nucleated RBC % Seg Neutrophils # Seg Neutrophils # Man Lymphocytes # (Manual) Monocytes # (Manual) Eosinophils # (Manual) PT INR Fibrinogen dRVVT Confirm Interp Factor V Activity POC ABG pH POC ABG pCO2 POC ABG pO2 ABG pO2 ABG HCO3 ABG Hemoglobin Oxyhemoglobin Sodium 136 L Potassium Chloride Carbon Dioxide 18 L BUN 121 H Creatinine 2.8 H Glucose 214 H POC Glucose 239 H 181 H Lactic Acid Calcium Phosphorus Magnesium Direct Bilirubin AST ALT Alkaline Phosphatase Lactate Dehydrogenase Troponin T C-Reactive Protein Total Protein Albumin Prealbumin Triglycerides Cholesterol LDL Cholesterol Direct HDL Cholesterol Urine pH Urine WBC (Auto) Urine Creatinine Urine Total Protein Fluid Total Protein Vancomycin Trough Rheumatoid Factor Complement C4 Miscellaneous Test Crossmatch 09/14/16 09/14/16 09/15/16 18:12 23:37 05:00 WBC 26.1 H RBC 3.05 L Hgb 7.2 L Hct 22.9 L MCV 75 L MCH 24 L MCHC RDW 19.0 H Plt Count Lymph % (Auto) [place] % (Auto) Lymph # [place] # Baso # Seg Neutrophils % Seg Neuts % (Manual) Lymphocytes % (Manual) Monocytes % (Manual) Eosinophils % (Manual) Basophils % (Manual) Nucleated RBC % Seg Neutrophils # Seg Neutrophils # Man Lymphocytes # (Manual) Monocytes # (Manual) Eosinophils # (Manual) PT INR Fibrinogen dRVVT Confirm Interp Factor V Activity POC ABG pH POC ABG pCO2 POC ABG pO2 ABG pO2 ABG HCO3 ABG Hemoglobin Oxyhemoglobin Sodium Potassium Chloride Carbon Dioxide BUN Creatinine Glucose POC Glucose 266 H 154 H Lactic Acid Calcium Phosphorus Magnesium Direct Bilirubin AST ALT Alkaline Phosphatase Lactate Dehydrogenase Troponin T C-Reactive Protein Total Protein Albumin Prealbumin Triglycerides Cholesterol LDL Cholesterol Direct HDL Cholesterol Urine pH Urine WBC (Auto) Urine Creatinine Urine Total Protein Fluid Total Protein Vancomycin Trough Rheumatoid Factor Complement C4 Miscellaneous Test Crossmatch 09/15/16 09/15/16 09/15/16 05:00 05:17 12:45 WBC RBC Hgb Hct MCV MCH MCHC RDW Plt Count Lymph % (Auto) [place] % (Auto) Lymph # [place] # Baso # Seg Neutrophils % Seg Neuts % (Manual) Lymphocytes % (Manual) Monocytes % (Manual) Eosinophils % (Manual) Basophils % (Manual) Nucleated RBC % Seg Neutrophils # Seg Neutrophils # Man Lymphocytes # (Manual) Monocytes # (Manual) Eosinophils # (Manual) PT INR Fibrinogen dRVVT Confirm Interp Factor V Activity POC ABG pH POC ABG pCO2 POC ABG pO2 ABG pO2 ABG HCO3 ABG Hemoglobin Oxyhemoglobin Sodium Potassium 5.2 H Chloride Carbon Dioxide 18 L BUN 139 H Creatinine 3.7 H Glucose 227 H POC Glucose 226 H 244 H Lactic Acid Calcium 8.3 L Phosphorus Magnesium Direct Bilirubin AST ALT Alkaline Phosphatase Lactate Dehydrogenase Troponin T C-Reactive Protein Total Protein Albumin Prealbumin Triglycerides Cholesterol LDL Cholesterol Direct HDL Cholesterol Urine pH Urine WBC (Auto) Urine Creatinine Urine Total Protein Fluid Total Protein Vancomycin Trough Rheumatoid Factor Complement C4 Miscellaneous Test Crossmatch 09/15/16 09/15/16 09/15/16 14:32 17:33 23:35 WBC RBC Hgb Hct MCV MCH MCHC RDW Plt Count Lymph % (Auto) [place] % (Auto) Lymph # [place] # Baso # Seg Neutrophils % Seg Neuts % (Manual) Lymphocytes % (Manual) Monocytes % (Manual) Eosinophils % (Manual) Basophils % (Manual) Nucleated RBC % Seg Neutrophils # Seg Neutrophils # Man Lymphocytes # (Manual) Monocytes # (Manual) Eosinophils # (Manual) PT INR Fibrinogen dRVVT Confirm Interp Factor V Activity POC ABG pH POC ABG pCO2 27.7 L POC ABG pO2 120 H ABG pO2 ABG HCO3 ABG Hemoglobin Oxyhemoglobin Sodium Potassium Chloride Carbon Dioxide BUN Creatinine Glucose POC Glucose 232 H 167 H Lactic Acid Calcium Phosphorus Magnesium Direct Bilirubin AST ALT Alkaline Phosphatase Lactate Dehydrogenase Troponin T C-Reactive Protein Total Protein Albumin Prealbumin Triglycerides Cholesterol LDL Cholesterol Direct HDL Cholesterol Urine pH Urine WBC (Auto) Urine Creatinine Urine Total Protein Fluid Total Protein Vancomycin Trough Rheumatoid Factor Complement C4 Miscellaneous Test Crossmatch 09/16/16 09/16/16 09/16/16 03:58 10:27 10:27 WBC 19.0 H RBC 2.77 L Hgb 6.5 L Hct 20.9 L MCV 76 L MCH 23 L MCHC RDW 19.3 H Plt Count Lymph % (Auto) 11.0 L [place] % (Auto) Lymph # [place] # 1.1 H Baso # Seg Neutrophils % 82.5 H Seg Neuts % (Manual) Lymphocytes % (Manual) Monocytes % (Manual) Eosinophils % (Manual) Basophils % (Manual) Nucleated RBC % Seg Neutrophils # 15.7 H Seg Neutrophils # Man Lymphocytes # (Manual) Monocytes # (Manual) Eosinophils # (Manual) PT INR Fibrinogen dRVVT Confirm Interp Factor V Activity POC ABG pH POC ABG pCO2 POC ABG pO2 ABG pO2 ABG HCO3 ABG Hemoglobin Oxyhemoglobin Sodium Potassium Chloride 109.3 H Carbon Dioxide 18 L BUN 139 H Creatinine 4.1 H Glucose 144 H POC Glucose 146 H Lactic Acid Calcium 8.1 L Phosphorus Magnesium Direct Bilirubin AST ALT Alkaline Phosphatase Lactate Dehydrogenase Troponin T C-Reactive Protein Total Protein Albumin Prealbumin Triglycerides Cholesterol LDL Cholesterol Direct HDL Cholesterol Urine pH Urine WBC (Auto) Urine Creatinine Urine Total Protein Fluid Total Protein Vancomycin Trough Rheumatoid Factor Complement C4 Miscellaneous Test Crossmatch 07/09/16/16 09/16/16 12:04 12:10 13:55 WBC RBC Hgb Hct MCV MCH MCHC RDW Plt Count Lymph % (Auto) [place] % (Auto) Lymph # [place] # Baso # Seg Neutrophils % Seg Neuts % (Manual) Lymphocytes % (Manual) Monocytes % (Manual) Eosinophils % (Manual) Basophils % (Manual) Nucleated RBC % Seg Neutrophils # Seg Neutrophils # Man Lymphocytes # (Manual) Monocytes # (Manual) Eosinophils # (Manual) PT INR Fibrinogen dRVVT Confirm Interp Factor V Activity POC ABG pH POC ABG pCO2 32.9 L POC ABG pO2 ABG pO2 ABG HCO3 ABG Hemoglobin Oxyhemoglobin Sodium Potassium Chloride Carbon Dioxide BUN Creatinine Glucose POC Glucose 185 H Lactic Acid Calcium Phosphorus Magnesium Direct Bilirubin AST ALT Alkaline Phosphatase Lactate Dehydrogenase Troponin T C-Reactive Protein Total Protein Albumin Prealbumin Triglycerides Cholesterol LDL Cholesterol Direct HDL Cholesterol Urine pH Urine WBC (Auto) Urine Creatinine Urine Total Protein Fluid Total Protein Vancomycin Trough Rheumatoid Factor Complement C4 Miscellaneous Test Crossmatch See Detail 09/16/16 09/16/16 09/16/16 17:55 19:19 23:48 WBC RBC Hgb Hct MCV MCH MCHC RDW Plt Count Lymph % (Auto) [place] % (Auto) Lymph # [place] # Baso # Seg Neutrophils % Seg Neuts % (Manual) Lymphocytes % (Manual) Monocytes % (Manual) Eosinophils % (Manual) Basophils % (Manual) Nucleated RBC % Seg Neutrophils # Seg Neutrophils # Man Lymphocytes # (Manual) Monocytes # (Manual) Eosinophils # (Manual) PT INR Fibrinogen dRVVT Confirm Interp Factor V Activity POC ABG pH POC ABG pCO2 POC ABG pO2 ABG pO2 ABG HCO3 ABG Hemoglobin Oxyhemoglobin Sodium Potassium Chloride Carbon Dioxide BUN Creatinine Glucose POC Glucose 222 H 107 H Lactic Acid Calcium Phosphorus Magnesium Direct Bilirubin AST ALT Alkaline Phosphatase Lactate Dehydrogenase Troponin T C-Reactive Protein Total Protein Albumin Prealbumin Triglycerides Cholesterol LDL Cholesterol Direct HDL Cholesterol Urine pH Urine WBC (Auto) Urine Creatinine 47.4 H Urine Total Protein 16 H Fluid Total Protein Vancomycin Trough Rheumatoid Factor Complement C4 Miscellaneous Test Crossmatch 09/17/16 09/17/16 09/17/16 03:45 03:45 04:55 WBC 19.6 H RBC 3.41 L Hgb 8.5 L Hct 26.7 L MCV 78 L MCH 25 L MCHC RDW 19.9 H Plt Count Lymph % (Auto) 9.3 L [place] % (Auto) Lymph # [place] # 1.2 H Baso # Seg Neutrophils % 83.9 H Seg Neuts % (Manual) Lymphocytes % (Manual) Monocytes % (Manual) Eosinophils % (Manual) Basophils % (Manual) Nucleated RBC % Seg Neutrophils # 16.4 H Seg Neutrophils # Man Lymphocytes # (Manual) Monocytes # (Manual) Eosinophils # (Manual) PT INR Fibrinogen dRVVT Confirm Interp Factor V Activity POC ABG pH POC ABG pCO2 POC ABG pO2 ABG pO2 ABG HCO3 ABG Hemoglobin Oxyhemoglobin Sodium 146 H Potassium 5.1 H Chloride 110.9 H Carbon Dioxide 16 L BUN 146 H Creatinine 4.0 H Glucose 108 H POC Glucose 133 H Lactic Acid Calcium Phosphorus Magnesium 3.00 H Direct Bilirubin AST ALT Alkaline Phosphatase Lactate Dehydrogenase Troponin T C-Reactive Protein Total Protein Albumin Prealbumin Triglycerides Cholesterol LDL Cholesterol Direct HDL Cholesterol Urine pH Urine WBC (Auto) Urine Creatinine Urine Total Protein Fluid Total Protein Vancomycin Trough Rheumatoid Factor Complement C4 Miscellaneous Test Crossmatch 09/17/16 09/17/16 09/17/16 11:15 17:33 23:47 WBC RBC Hgb Hct MCV MCH MCHC RDW Plt Count Lymph % (Auto) [place] % (Auto) Lymph # [place] # Baso # Seg Neutrophils % Seg Neuts % (Manual) Lymphocytes % (Manual) Monocytes % (Manual) Eosinophils % (Manual) Basophils % (Manual) Nucleated RBC % Seg Neutrophils # Seg Neutrophils # Man Lymphocytes # (Manual) Monocytes # (Manual) Eosinophils # (Manual) PT INR Fibrinogen dRVVT Confirm Interp Factor V Activity POC ABG pH POC ABG pCO2 POC ABG pO2 ABG pO2 ABG HCO3 ABG Hemoglobin Oxyhemoglobin Sodium Potassium Chloride Carbon Dioxide BUN Creatinine Glucose POC Glucose 176 H 246 H 148 H Lactic Acid Calcium Phosphorus Magnesium Direct Bilirubin AST ALT Alkaline Phosphatase Lactate Dehydrogenase Troponin T C-Reactive Protein Total Protein Albumin Prealbumin Triglycerides Cholesterol LDL Cholesterol Direct HDL Cholesterol Urine pH Urine WBC (Auto) Urine Creatinine Urine Total Protein Fluid Total Protein Vancomycin Trough Rheumatoid Factor Complement C4 Miscellaneous Test Crossmatch 09/18/16 09/18/16 09/18/16 05:33 08:31 08:31 WBC 18.0 H RBC 3.17 L Hgb 9.0 L Hct 25.7 L MCV MCH MCHC 35 H RDW 20.4 H Plt Count Lymph % (Auto) [place] % (Auto) Lymph # [place] # Baso # Seg Neutrophils % Seg Neuts % (Manual) Lymphocytes % (Manual) Monocytes % (Manual) Eosinophils % (Manual) Basophils % (Manual) Nucleated RBC % Seg Neutrophils # Seg Neutrophils # Man Lymphocytes # (Manual) Monocytes # (Manual) Eosinophils # (Manual) PT INR Fibrinogen dRVVT Confirm Interp Factor V Activity POC ABG pH POC ABG pCO2 POC ABG pO2 ABG pO2 ABG HCO3 ABG Hemoglobin Oxyhemoglobin Sodium Potassium Chloride Carbon Dioxide 15 L BUN 124 H Creatinine 3.8 H Glucose POC Glucose 120 H Lactic Acid Calcium 8.1 L Phosphorus Magnesium Direct Bilirubin AST ALT Alkaline Phosphatase Lactate Dehydrogenase Troponin T C-Reactive Protein Total Protein Albumin Prealbumin Triglycerides Cholesterol LDL Cholesterol Direct HDL Cholesterol Urine pH Urine WBC (Auto) Urine Creatinine Urine Total Protein Fluid Total Protein Vancomycin Trough Rheumatoid Factor Complement C4 Miscellaneous Test Crossmatch 09/18/16 09/18/16 09/18/16 12:03 15:34 17:50 WBC RBC Hgb Hct MCV MCH MCHC RDW Plt Count Lymph % (Auto) [place] % (Auto) Lymph # [place] # Baso # Seg Neutrophils % Seg Neuts % (Manual) Lymphocytes % (Manual) Monocytes % (Manual) Eosinophils % (Manual) Basophils % (Manual) Nucleated RBC % Seg Neutrophils # Seg Neutrophils # Man Lymphocytes # (Manual) Monocytes # (Manual) Eosinophils # (Manual) PT INR Fibrinogen dRVVT Confirm Interp Factor V Activity POC ABG pH POC ABG pCO2 25.7 L POC ABG pO2 66 L ABG pO2 ABG HCO3 ABG Hemoglobin Oxyhemoglobin Sodium Potassium Chloride Carbon Dioxide BUN Creatinine Glucose POC Glucose 156 H 220 H Lactic Acid Calcium Phosphorus Magnesium Direct Bilirubin AST ALT Alkaline Phosphatase Lactate Dehydrogenase Troponin T C-Reactive Protein Total Protein Albumin Prealbumin Triglycerides Cholesterol LDL Cholesterol Direct HDL Cholesterol Urine pH Urine WBC (Auto) Urine Creatinine Urine Total Protein Fluid Total Protein Vancomycin Trough Rheumatoid Factor Complement C4 Miscellaneous Test Crossmatch 09/19/16 09/19/16 09/19/16 06:21 09:50 09:50 WBC 17.1 H RBC 3.49 L Hgb 9.0 L Hct 28.1 L MCV MCH 26 L MCHC RDW 20.8 H Plt Count Lymph % (Auto) 11.5 L [place] % (Auto) 7.5 H Lymph # [place] # 1.3 H Baso # Seg Neutrophils % 79.8 H Seg Neuts % (Manual) Lymphocytes % (Manual) Monocytes % (Manual) Eosinophils % (Manual) Basophils % (Manual) Nucleated RBC % Seg Neutrophils # 13.7 H Seg Neutrophils # Man Lymphocytes # (Manual) Monocytes # (Manual) Eosinophils # (Manual) PT INR Fibrinogen dRVVT Confirm Interp Factor V Activity POC ABG pH POC ABG pCO2 POC ABG pO2 ABG pO2 ABG HCO3 ABG Hemoglobin Oxyhemoglobin Sodium Potassium Chloride 108.6 H Carbon Dioxide 15 L BUN 125 H Creatinine 4.1 H Glucose 124 H POC Glucose 119 H Lactic Acid Calcium Phosphorus Magnesium Direct Bilirubin AST ALT Alkaline Phosphatase Lactate Dehydrogenase Troponin T C-Reactive Protein Total Protein Albumin Prealbumin Triglycerides Cholesterol LDL Cholesterol Direct HDL Cholesterol Urine pH Urine WBC (Auto) Urine Creatinine Urine Total Protein Fluid Total Protein Vancomycin Trough Rheumatoid Factor Complement C4 Miscellaneous Test Crossmatch 09/19/16 09/19/16 09/19/16 11:25 17:53 23:36 WBC RBC Hgb Hct MCV MCH MCHC RDW Plt Count Lymph % (Auto) [place] % (Auto) Lymph # [place] # Baso # Seg Neutrophils % Seg Neuts % (Manual) Lymphocytes % (Manual) Monocytes % (Manual) Eosinophils % (Manual) Basophils % (Manual) Nucleated RBC % Seg Neutrophils # Seg Neutrophils # Man Lymphocytes # (Manual) Monocytes # (Manual) Eosinophils # (Manual) PT INR Fibrinogen dRVVT Confirm Interp Factor V Activity POC ABG pH POC ABG pCO2 POC ABG pO2 ABG pO2 ABG HCO3 ABG Hemoglobin Oxyhemoglobin Sodium Potassium Chloride Carbon Dioxide BUN Creatinine Glucose POC Glucose 160 H 245 H 121 H Lactic Acid Calcium Phosphorus Magnesium Direct Bilirubin AST ALT Alkaline Phosphatase Lactate Dehydrogenase Troponin T C-Reactive Protein Total Protein Albumin Prealbumin Triglycerides Cholesterol LDL Cholesterol Direct HDL Cholesterol Urine pH Urine WBC (Auto) Urine Creatinine Urine Total Protein Fluid Total Protein Vancomycin Trough Rheumatoid Factor Complement C4 Miscellaneous Test Crossmatch 09/20/16 09/20/16 09/20/16 04:10 04:10 04:10 WBC 17.0 H RBC 3.21 L Hgb 8.2 L Hct 25.5 L MCV MCH 26 L MCHC RDW 20.9 H Plt Count Lymph % (Auto) [place] % (Auto) Lymph # [place] # Baso # Seg Neutrophils % Seg Neuts % (Manual) Lymphocytes % (Manual) Monocytes % (Manual) Eosinophils % (Manual) Basophils % (Manual) Nucleated RBC % Seg Neutrophils # Seg Neutrophils # Man Lymphocytes # (Manual) Monocytes # (Manual) Eosinophils # (Manual) PT INR Fibrinogen dRVVT Confirm Interp Factor V Activity POC ABG pH POC ABG pCO2 POC ABG pO2 ABG pO2 ABG HCO3 ABG Hemoglobin Oxyhemoglobin Sodium Potassium Chloride 111.0 H Carbon Dioxide 16 L BUN 129 H Creatinine 3.7 H Glucose 115 H POC Glucose Lactic Acid Calcium 8.2 L Phosphorus Magnesium Direct Bilirubin AST ALT Alkaline Phosphatase Lactate Dehydrogenase Troponin T C-Reactive Protein Total Protein Albumin Prealbumin Triglycerides 243 H Cholesterol LDL Cholesterol Direct HDL Cholesterol Urine pH Urine WBC (Auto) Urine Creatinine Urine Total Protein Fluid Total Protein Vancomycin Trough Rheumatoid Factor Complement C4 Miscellaneous Test Crossmatch 09/20/16 09/20/16 09/20/16 05:40 11:52 16:50 WBC RBC Hgb Hct MCV MCH MCHC RDW Plt Count Lymph % (Auto) [place] % (Auto) Lymph # [place] # Baso # Seg Neutrophils % Seg Neuts % (Manual) Lymphocytes % (Manual) Monocytes % (Manual) Eosinophils % (Manual) Basophils % (Manual) Nucleated RBC % Seg Neutrophils # Seg Neutrophils # Man Lymphocytes # (Manual) Monocytes # (Manual) Eosinophils # (Manual) PT INR Fibrinogen dRVVT Confirm Interp Factor V Activity POC ABG pH POC ABG pCO2 POC ABG pO2 ABG pO2 ABG HCO3 ABG Hemoglobin Oxyhemoglobin Sodium Potassium Chloride Carbon Dioxide BUN Creatinine Glucose POC Glucose 131 H 183 H 236 H Lactic Acid Calcium Phosphorus Magnesium Direct Bilirubin AST ALT Alkaline Phosphatase Lactate Dehydrogenase Troponin T C-Reactive Protein Total Protein Albumin Prealbumin Triglycerides Cholesterol LDL Cholesterol Direct HDL Cholesterol Urine pH Urine WBC (Auto) Urine Creatinine Urine Total Protein Fluid Total Protein Vancomycin Trough Rheumatoid Factor Complement C4 Miscellaneous Test Crossmatch 09/20/16 09/21/16 09/21/16 23:51 03:30 04:44 WBC RBC Hgb Hct MCV MCH MCHC RDW Plt Count Lymph % (Auto) [place] % (Auto) Lymph # [place] # Baso # Seg Neutrophils % Seg Neuts % (Manual) Lymphocytes % (Manual) Monocytes % (Manual) Eosinophils % (Manual) Basophils % (Manual) Nucleated RBC % Seg Neutrophils # Seg Neutrophils # Man Lymphocytes # (Manual) Monocytes # (Manual) Eosinophils # (Manual) PT INR Fibrinogen dRVVT Confirm Interp Factor V Activity POC ABG pH POC ABG pCO2 POC ABG pO2 ABG pO2 ABG HCO3 ABG Hemoglobin Oxyhemoglobin Sodium Potassium Chloride Carbon Dioxide BUN Creatinine Glucose POC Glucose 114 H 141 H Lactic Acid Calcium Phosphorus Magnesium 2.70 H Direct Bilirubin AST ALT Alkaline Phosphatase Lactate Dehydrogenase Troponin T C-Reactive Protein Total Protein Albumin Prealbumin Triglycerides Cholesterol LDL Cholesterol Direct HDL Cholesterol Urine pH Urine WBC (Auto) Urine Creatinine Urine Total Protein Fluid Total Protein Vancomycin Trough Rheumatoid Factor Complement C4 Miscellaneous Test Crossmatch 09/21/16 09/21/16 09/21/16 07:45 07:45 10:01 WBC 13.8 H RBC 2.94 L Hgb 7.5 L Hct 23.5 L MCV MCH 26 L MCHC RDW 21.2 H Plt Count Lymph % (Auto) 6.9 L [place] % (Auto) 9.4 H Lymph # 0.9 L [place] # 1.3 H Baso # Seg Neutrophils % 83.2 H Seg Neuts % (Manual) Lymphocytes % (Manual) Monocytes % (Manual) Eosinophils % (Manual) Basophils % (Manual) Nucleated RBC % Seg Neutrophils # 11.5 H Seg Neutrophils # Man Lymphocytes # (Manual) Monocytes # (Manual) Eosinophils # (Manual) PT INR Fibrinogen dRVVT Confirm Interp Factor V Activity POC ABG pH 7.308 L POC ABG pCO2 31.9 L POC ABG pO2 148 H ABG pO2 ABG HCO3 ABG Hemoglobin Oxyhemoglobin Sodium 147 H Potassium Chloride 114.2 H Carbon Dioxide 15 L BUN 120 H Creatinine 3.9 H Glucose 156 H POC Glucose Lactic Acid Calcium 8.2 L Phosphorus Magnesium Direct Bilirubin AST ALT Alkaline Phosphatase Lactate Dehydrogenase Troponin T C-Reactive Protein Total Protein Albumin Prealbumin Triglycerides Cholesterol LDL Cholesterol Direct HDL Cholesterol Urine pH Urine WBC (Auto) Urine Creatinine Urine Total Protein Fluid Total Protein Vancomycin Trough Rheumatoid Factor Complement C4 Miscellaneous Test Crossmatch 09/21/16 09/21/16 09/21/16 12:00 12:03 13:00 WBC RBC Hgb Hct MCV MCH MCHC RDW Plt Count Lymph % (Auto) [place] % (Auto) Lymph # [place] # Baso # Seg Neutrophils % Seg Neuts % (Manual) Lymphocytes % (Manual) Monocytes % (Manual) Eosinophils % (Manual) Basophils % (Manual) Nucleated RBC % Seg Neutrophils # Seg Neutrophils # Man Lymphocytes # (Manual) Monocytes # (Manual) Eosinophils # (Manual) PT INR Fibrinogen dRVVT Confirm Interp Factor V Activity POC ABG pH POC ABG pCO2 POC ABG pO2 ABG pO2 ABG HCO3 ABG Hemoglobin Oxyhemoglobin Sodium Potassium Chloride Carbon Dioxide BUN Creatinine Glucose POC Glucose 163 H Lactic Acid Calcium Phosphorus Magnesium Direct Bilirubin AST ALT Alkaline Phosphatase Lactate Dehydrogenase Troponin T C-Reactive Protein Total Protein Albumin Prealbumin Triglycerides Cholesterol LDL Cholesterol Direct HDL Cholesterol Urine pH Urine WBC (Auto) Urine Creatinine 54.8 H Urine Total Protein Fluid Total Protein Vancomycin Trough 2.3 L Rheumatoid Factor Complement C4 Miscellaneous Test Crossmatch 09/21/16 09/21/16 09/22/16 16:51 23:17 06:27 WBC RBC Hgb Hct MCV MCH MCHC RDW Plt Count Lymph % (Auto) [place] % (Auto) Lymph # [place] # Baso # Seg Neutrophils % Seg Neuts % (Manual) Lymphocytes % (Manual) Monocytes % (Manual) Eosinophils % (Manual) Basophils % (Manual) Nucleated RBC % Seg Neutrophils # Seg Neutrophils # Man Lymphocytes # (Manual) Monocytes # (Manual) Eosinophils # (Manual) PT INR Fibrinogen dRVVT Confirm Interp Factor V Activity POC ABG pH POC ABG pCO2 POC ABG pO2 ABG pO2 ABG HCO3 ABG Hemoglobin Oxyhemoglobin Sodium Potassium Chloride Carbon Dioxide BUN Creatinine Glucose POC Glucose 206 H 114 H 115 H Lactic Acid Calcium Phosphorus Magnesium Direct Bilirubin AST ALT Alkaline Phosphatase Lactate Dehydrogenase Troponin T C-Reactive Protein Total Protein Albumin Prealbumin Triglycerides Cholesterol LDL Cholesterol Direct HDL Cholesterol Urine pH Urine WBC (Auto) Urine Creatinine Urine Total Protein Fluid Total Protein Vancomycin Trough Rheumatoid Factor Complement C4 Miscellaneous Test Crossmatch 09/22/16 09/22/16 09/22/16 07:50 07:50 12:00 WBC 17.8 H RBC 3.04 L Hgb 8.0 L Hct 24.7 L MCV MCH 26 L MCHC RDW 21.6 H Plt Count Lymph % (Auto) [place] % (Auto) Lymph # [place] # Baso # Seg Neutrophils % Seg Neuts % (Manual) Lymphocytes % (Manual) Monocytes % (Manual) Eosinophils % (Manual) Basophils % (Manual) Nucleated RBC % Seg Neutrophils # Seg Neutrophils # Man Lymphocytes # (Manual) Monocytes # (Manual) Eosinophils # (Manual) PT INR Fibrinogen dRVVT Confirm Interp Factor V Activity POC ABG pH POC ABG pCO2 POC ABG pO2 ABG pO2 ABG HCO3 ABG Hemoglobin Oxyhemoglobin Sodium 150 H Potassium Chloride 118.2 H Carbon Dioxide 14 L BUN 111 H Creatinine 3.7 H Glucose 157 H POC Glucose 183 H Lactic Acid Calcium Phosphorus Magnesium Direct Bilirubin AST ALT Alkaline Phosphatase Lactate Dehydrogenase Troponin T C-Reactive Protein Total Protein Albumin Prealbumin Triglycerides Cholesterol LDL Cholesterol Direct HDL Cholesterol Urine pH Urine WBC (Auto) Urine Creatinine Urine Total Protein Fluid Total Protein Vancomycin Trough Rheumatoid Factor Complement C4 Miscellaneous Test Crossmatch 09/22/16 09/22/16 09/23/16 17:29 23:10 05:00 WBC 19.2 H RBC 3.13 L Hgb 8.0 L Hct 25.2 L MCV MCH 26 L MCHC RDW 22.1 H Plt Count Lymph % (Auto) [place] % (Auto) Lymph # [place] # Baso # Seg Neutrophils % Seg Neuts % (Manual) 92.0 H Lymphocytes % (Manual) 3.0 L Monocytes % (Manual) Eosinophils % (Manual) Basophils % (Manual) Nucleated RBC % Seg Neutrophils # Seg Neutrophils # Man 17.7 H Lymphocytes # (Manual) 0.6 L Monocytes # (Manual) Eosinophils # (Manual) PT INR Fibrinogen dRVVT Confirm Interp Factor V Activity POC ABG pH POC ABG pCO2 POC ABG pO2 ABG pO2 ABG HCO3 ABG Hemoglobin Oxyhemoglobin Sodium Potassium Chloride Carbon Dioxide BUN Creatinine Glucose POC Glucose 197 H 169 H Lactic Acid Calcium Phosphorus Magnesium Direct Bilirubin AST ALT Alkaline Phosphatase Lactate Dehydrogenase Troponin T C-Reactive Protein Total Protein Albumin Prealbumin Triglycerides Cholesterol LDL Cholesterol Direct HDL Cholesterol Urine pH Urine WBC (Auto) Urine Creatinine Urine Total Protein Fluid Total Protein Vancomycin Trough Rheumatoid Factor Complement C4 Miscellaneous Test Crossmatch 09/23/16 09/23/16 09/23/16 05:00 05:00 05:10 WBC RBC Hgb Hct MCV MCH MCHC RDW Plt Count Lymph % (Auto) [place] % (Auto) Lymph # [place] # Baso # Seg Neutrophils % Seg Neuts % (Manual) Lymphocytes % (Manual) Monocytes % (Manual) Eosinophils % (Manual) Basophils % (Manual) Nucleated RBC % Seg Neutrophils # Seg Neutrophils # Man Lymphocytes # (Manual) Monocytes # (Manual) Eosinophils # (Manual) PT INR Fibrinogen dRVVT Confirm Interp Factor V Activity POC ABG pH POC ABG pCO2 POC ABG pO2 ABG pO2 ABG HCO3 ABG Hemoglobin Oxyhemoglobin Sodium 147 H Potassium 3.2 L Chloride 115.7 H Carbon Dioxide 13 L BUN 111 H Creatinine 3.8 H Glucose 194 H POC Glucose 188 H Lactic Acid Calcium 7.3 L D Phosphorus Magnesium Direct Bilirubin AST ALT Alkaline Phosphatase Lactate Dehydrogenase Troponin T C-Reactive Protein 3.20 H Total Protein Albumin Prealbumin Triglycerides Cholesterol LDL Cholesterol Direct HDL Cholesterol Urine pH Urine WBC (Auto) Urine Creatinine Urine Total Protein Fluid Total Protein Vancomycin Trough Rheumatoid Factor Complement C4 Miscellaneous Test Crossmatch 09/23/16 09/23/16 09/23/16 11:37 12:29 18:01 WBC RBC Hgb Hct MCV MCH MCHC RDW Plt Count Lymph % (Auto) [place] % (Auto) Lymph # [place] # Baso # Seg Neutrophils % Seg Neuts % (Manual) Lymphocytes % (Manual) Monocytes % (Manual) Eosinophils % (Manual) Basophils % (Manual) Nucleated RBC % Seg Neutrophils # Seg Neutrophils # Man Lymphocytes # (Manual) Monocytes # (Manual) Eosinophils # (Manual) PT INR Fibrinogen dRVVT Confirm Interp Factor V Activity POC ABG pH POC ABG pCO2 18.9 L POC ABG pO2 143 H ABG pO2 ABG HCO3 ABG Hemoglobin Oxyhemoglobin Sodium Potassium Chloride Carbon Dioxide BUN Creatinine Glucose POC Glucose 153 H 108 H Lactic Acid Calcium Phosphorus Magnesium Direct Bilirubin AST ALT Alkaline Phosphatase Lactate Dehydrogenase Troponin T C-Reactive Protein Total Protein Albumin Prealbumin Triglycerides Cholesterol LDL Cholesterol Direct HDL Cholesterol Urine pH Urine WBC (Auto) Urine Creatinine Urine Total Protein Fluid Total Protein Vancomycin Trough Rheumatoid Factor Complement C4 Miscellaneous Test Crossmatch 09/23/16 09/23/16 09/24/16 21:19 23:43 05:16 WBC RBC Hgb Hct MCV MCH MCHC RDW Plt Count Lymph % (Auto) [place] % (Auto) Lymph # [place] # Baso # Seg Neutrophils % Seg Neuts % (Manual) Lymphocytes % (Manual) Monocytes % (Manual) Eosinophils % (Manual) Basophils % (Manual) Nucleated RBC % Seg Neutrophils # Seg Neutrophils # Man Lymphocytes # (Manual) Monocytes # (Manual) Eosinophils # (Manual) PT INR Fibrinogen dRVVT Confirm Interp Factor V Activity POC ABG pH POC ABG pCO2 17.3 L POC ABG pO2 112 H ABG pO2 ABG HCO3 ABG Hemoglobin Oxyhemoglobin Sodium Potassium Chloride Carbon Dioxide BUN Creatinine Glucose POC Glucose 143 H 164 H Lactic Acid Calcium Phosphorus Magnesium Direct Bilirubin AST ALT Alkaline Phosphatase Lactate Dehydrogenase Troponin T C-Reactive Protein Total Protein Albumin Prealbumin Triglycerides Cholesterol LDL Cholesterol Direct HDL Cholesterol Urine pH Urine WBC (Auto) Urine Creatinine Urine Total Protein Fluid Total Protein Vancomycin Trough Rheumatoid Factor Complement C4 Miscellaneous Test Crossmatch 09/24/16 09/24/16 09/24/16 05:21 11:58 17:06 WBC RBC Hgb Hct MCV MCH MCHC RDW Plt Count Lymph % (Auto) [place] % (Auto) Lymph # [place] # Baso # Seg Neutrophils % Seg Neuts % (Manual) Lymphocytes % (Manual) Monocytes % (Manual) Eosinophils % (Manual) Basophils % (Manual) Nucleated RBC % Seg Neutrophils # Seg Neutrophils # Man Lymphocytes # (Manual) Monocytes # (Manual) Eosinophils # (Manual) PT INR Fibrinogen dRVVT Confirm Interp Factor V Activity POC ABG pH POC ABG pCO2 POC ABG pO2 ABG pO2 ABG HCO3 ABG Hemoglobin Oxyhemoglobin Sodium Potassium Chloride Carbon Dioxide 10 L BUN 103 H Creatinine 4.3 H Glucose 163 H POC Glucose 173 H 167 H Lactic Acid Calcium 6.5 L Phosphorus Magnesium Direct Bilirubin AST ALT Alkaline Phosphatase Lactate Dehydrogenase Troponin T C-Reactive Protein Total Protein Albumin Prealbumin Triglycerides Cholesterol LDL Cholesterol Direct HDL Cholesterol Urine pH Urine WBC (Auto) Urine Creatinine Urine Total Protein Fluid Total Protein Vancomycin Trough Rheumatoid Factor Complement C4 Miscellaneous Test Crossmatch 09/24/16 09/24/16 09/24/16 20:15 21:02 23:48 WBC RBC Hgb Hct MCV MCH MCHC RDW Plt Count Lymph % (Auto) [place] % (Auto) Lymph # [place] # Baso # Seg Neutrophils % Seg Neuts % (Manual) Lymphocytes % (Manual) Monocytes % (Manual) Eosinophils % (Manual) Basophils % (Manual) Nucleated RBC % Seg Neutrophils # Seg Neutrophils # Man Lymphocytes # (Manual) Monocytes # (Manual) Eosinophils # (Manual) PT INR Fibrinogen dRVVT Confirm Interp Factor V Activity POC ABG pH 7.288 L POC ABG pCO2 30.2 L 21.5 L POC ABG pO2 32 L 39 L ABG pO2 ABG HCO3 ABG Hemoglobin Oxyhemoglobin Sodium Potassium Chloride Carbon Dioxide BUN Creatinine Glucose POC Glucose 109 H Lactic Acid Calcium Phosphorus Magnesium Direct Bilirubin AST ALT Alkaline Phosphatase Lactate Dehydrogenase Troponin T C-Reactive Protein Total Protein Albumin Prealbumin Triglycerides Cholesterol LDL Cholesterol Direct HDL Cholesterol Urine pH Urine WBC (Auto) Urine Creatinine Urine Total Protein Fluid Total Protein Vancomycin Trough Rheumatoid Factor Complement C4 Miscellaneous Test Crossmatch 09/25/16 09/25/16 09/25/16 04:20 04:20 04:20 WBC RBC 2.58 L Hgb 7.0 L Hct 21.0 L MCV MCH 27 L MCHC RDW 23.8 H Plt Count Lymph % (Auto) [place] % (Auto) Lymph # [place] # Baso # Seg Neutrophils % Seg Neuts % (Manual) Lymphocytes % (Manual) 12.0 L Monocytes % (Manual) Eosinophils % (Manual) 7.0 H Basophils % (Manual) 2.0 H Nucleated RBC % Seg Neutrophils # Seg Neutrophils # Man Lymphocytes # (Manual) 0.9 L Monocytes # (Manual) Eosinophils # (Manual) 0.5 H PT INR Fibrinogen dRVVT Confirm Interp Factor V Activity POC ABG pH POC ABG pCO2 POC ABG pO2 ABG pO2 ABG HCO3 ABG Hemoglobin Oxyhemoglobin Sodium Potassium Chloride Carbon Dioxide 15 L BUN 72 H Creatinine 3.8 H Glucose POC Glucose Lactic Acid Calcium 6.0 L Phosphorus 4.60 H Magnesium 1.60 L Direct Bilirubin AST ALT Alkaline Phosphatase Lactate Dehydrogenase Troponin T C-Reactive Protein Total Protein Albumin Prealbumin Triglycerides Cholesterol LDL Cholesterol Direct HDL Cholesterol Urine pH Urine WBC (Auto) Urine Creatinine Urine Total Protein Fluid Total Protein Vancomycin Trough Rheumatoid Factor Complement C4 Miscellaneous Test Crossmatch 09/25/16 09/25/16 09/25/16 04:57 08:02 10:30 WBC RBC Hgb Hct MCV MCH MCHC RDW Plt Count Lymph % (Auto) [place] % (Auto) Lymph # [place] # Baso # Seg Neutrophils % Seg Neuts % (Manual) Lymphocytes % (Manual) Monocytes % (Manual) Eosinophils % (Manual) Basophils % (Manual) Nucleated RBC % Seg Neutrophils # Seg Neutrophils # Man Lymphocytes # (Manual) Monocytes # (Manual) Eosinophils # (Manual) PT INR Fibrinogen dRVVT Confirm Interp Factor V Activity POC ABG pH POC ABG pCO2 24.7 L POC ABG pO2 152 H ABG pO2 ABG HCO3 ABG Hemoglobin Oxyhemoglobin Sodium Potassium Chloride Carbon Dioxide BUN Creatinine Glucose POC Glucose 113 H Lactic Acid Calcium Phosphorus Magnesium Direct Bilirubin AST ALT Alkaline Phosphatase Lactate Dehydrogenase Troponin T C-Reactive Protein Total Protein Albumin Prealbumin Triglycerides Cholesterol LDL Cholesterol Direct HDL Cholesterol Urine pH Urine WBC (Auto) Urine Creatinine Urine Total Protein Fluid Total Protein Vancomycin Trough Rheumatoid Factor Complement C4 Miscellaneous Test Crossmatch See Detail 09/25/16 09/25/16 09/25/16 12:05 17:44 23:47 WBC RBC Hgb Hct MCV MCH MCHC RDW Plt Count Lymph % (Auto) [place] % (Auto) Lymph # [place] # Baso # Seg Neutrophils % Seg Neuts % (Manual) Lymphocytes % (Manual) Monocytes % (Manual) Eosinophils % (Manual) Basophils % (Manual) Nucleated RBC % Seg Neutrophils # Seg Neutrophils # Man Lymphocytes # (Manual) Monocytes # (Manual) Eosinophils # (Manual) PT INR Fibrinogen dRVVT Confirm Interp Factor V Activity POC ABG pH POC ABG pCO2 POC ABG pO2 ABG pO2 ABG HCO3 ABG Hemoglobin Oxyhemoglobin Sodium Potassium Chloride Carbon Dioxide BUN Creatinine Glucose POC Glucose 117 H 119 H 150 H Lactic Acid Calcium Phosphorus Magnesium Direct Bilirubin AST ALT Alkaline Phosphatase Lactate Dehydrogenase Troponin T C-Reactive Protein Total Protein Albumin Prealbumin Triglycerides Cholesterol LDL Cholesterol Direct HDL Cholesterol Urine pH Urine WBC (Auto) Urine Creatinine Urine Total Protein Fluid Total Protein Vancomycin Trough Rheumatoid Factor Complement C4 Miscellaneous Test Crossmatch 09/26/16 09/26/16 09/26/16 04:25 04:25 04:25 WBC RBC 2.65 L Hgb 7.4 L Hct 21.6 L MCV MCH MCHC RDW 22.5 H Plt Count Lymph % (Auto) [place] % (Auto) Lymph # [place] # Baso # Seg Neutrophils % Seg Neuts % (Manual) Lymphocytes % (Manual) 6.0 L Monocytes % (Manual) Eosinophils % (Manual) 11.0 H Basophils % (Manual) Nucleated RBC % Seg Neutrophils # Seg Neutrophils # Man Lymphocytes # (Manual) 0.4 L Monocytes # (Manual) Eosinophils # (Manual) 0.6 H PT INR Fibrinogen dRVVT Confirm Interp Factor V Activity POC ABG pH POC ABG pCO2 POC ABG pO2 ABG pO2 ABG HCO3 ABG Hemoglobin Oxyhemoglobin Sodium Potassium Chloride 97.0 L Carbon Dioxide 19 L BUN 43 H Creatinine 2.6 H Glucose 130 H POC Glucose Lactic Acid 4.40 H* Calcium 6.7 L Phosphorus Magnesium Direct Bilirubin AST ALT Alkaline Phosphatase Lactate Dehydrogenase Troponin T C-Reactive Protein Total Protein Albumin Prealbumin Triglycerides Cholesterol LDL Cholesterol Direct HDL Cholesterol Urine pH Urine WBC (Auto) Urine Creatinine Urine Total Protein Fluid Total Protein Vancomycin Trough Rheumatoid Factor Complement C4 Miscellaneous Test Crossmatch 09/26/16 09/26/16 09/26/16 05:20 11:44 12:12 WBC RBC Hgb Hct MCV MCH MCHC RDW Plt Count Lymph % (Auto) [place] % (Auto) Lymph # [place] # Baso # Seg Neutrophils % Seg Neuts % (Manual) Lymphocytes % (Manual) Monocytes % (Manual) Eosinophils % (Manual) Basophils % (Manual) Nucleated RBC % Seg Neutrophils # Seg Neutrophils # Man Lymphocytes # (Manual) Monocytes # (Manual) Eosinophils # (Manual) PT INR Fibrinogen dRVVT Confirm Interp Factor V Activity POC ABG pH POC ABG pCO2 27.0 L POC ABG pO2 69 L ABG pO2 ABG HCO3 ABG Hemoglobin Oxyhemoglobin Sodium Potassium Chloride Carbon Dioxide BUN Creatinine Glucose POC Glucose 121 H 128 H Lactic Acid Calcium Phosphorus Magnesium Direct Bilirubin AST ALT Alkaline Phosphatase Lactate Dehydrogenase Troponin T C-Reactive Protein Total Protein Albumin Prealbumin Triglycerides Cholesterol LDL Cholesterol Direct HDL Cholesterol Urine pH Urine WBC (Auto) Urine Creatinine Urine Total Protein Fluid Total Protein Vancomycin Trough Rheumatoid Factor Complement C4 Miscellaneous Test Crossmatch 09/26/16 09/26/16 09/27/16 18:31 23:40 08:20 WBC RBC Hgb Hct MCV MCH MCHC RDW Plt Count Lymph % (Auto) [place] % (Auto) Lymph # [place] # Baso # Seg Neutrophils % Seg Neuts % (Manual) Lymphocytes % (Manual) Monocytes % (Manual) Eosinophils % (Manual) Basophils % (Manual) Nucleated RBC % Seg Neutrophils # Seg Neutrophils # Man Lymphocytes # (Manual) Monocytes # (Manual) Eosinophils # (Manual) PT INR Fibrinogen dRVVT Confirm Interp Factor V Activity POC ABG pH POC ABG pCO2 POC ABG pO2 ABG pO2 ABG HCO3 ABG Hemoglobin Oxyhemoglobin Sodium Potassium Chloride Carbon Dioxide BUN Creatinine Glucose POC Glucose 120 H 133 H Lactic Acid 4.10 H* Calcium Phosphorus Magnesium Direct Bilirubin AST ALT Alkaline Phosphatase Lactate Dehydrogenase Troponin T C-Reactive Protein Total Protein Albumin Prealbumin Triglycerides Cholesterol LDL Cholesterol Direct HDL Cholesterol Urine pH Urine WBC (Auto) Urine Creatinine Urine Total Protein Fluid Total Protein Vancomycin Trough Rheumatoid Factor Complement C4 Miscellaneous Test Crossmatch 09/27/16 09/27/16 09/27/16 11:23 15:00 18:15 WBC RBC Hgb Hct MCV MCH MCHC RDW Plt Count Lymph % (Auto) [place] % (Auto) Lymph # [place] # Baso # Seg Neutrophils % Seg Neuts % (Manual) Lymphocytes % (Manual) Monocytes % (Manual) Eosinophils % (Manual) Basophils % (Manual) Nucleated RBC % Seg Neutrophils # Seg Neutrophils # Man Lymphocytes # (Manual) Monocytes # (Manual) Eosinophils # (Manual) PT INR Fibrinogen dRVVT Confirm Interp Factor V Activity POC ABG pH 7.459 H POC ABG pCO2 27.1 L POC ABG pO2 140 H ABG pO2 ABG HCO3 ABG Hemoglobin Oxyhemoglobin Sodium Potassium Chloride Carbon Dioxide BUN Creatinine Glucose POC Glucose 114 H 127 H Lactic Acid Calcium Phosphorus Magnesium Direct Bilirubin AST ALT Alkaline Phosphatase Lactate Dehydrogenase Troponin T C-Reactive Protein Total Protein Albumin Prealbumin Triglycerides Cholesterol LDL Cholesterol Direct HDL Cholesterol Urine pH Urine WBC (Auto) Urine Creatinine Urine Total Protein Fluid Total Protein Vancomycin Trough Rheumatoid Factor Complement C4 Miscellaneous Test Crossmatch 09/27/16 09/27/16 09/28/16 Unknown Unknown 03:45 WBC RBC 2.49 L Hgb 6.8 L Hct 20.7 L MCV MCH 27 L MCHC RDW 22.1 H Plt Count Lymph % (Auto) [place] % (Auto) Lymph # [place] # Baso # Seg Neutrophils % Seg Neuts % (Manual) 32.0 L Lymphocytes % (Manual) 12.0 L Monocytes % (Manual) 11.0 H Eosinophils % (Manual) 10.0 H Basophils % (Manual) Nucleated RBC % Seg Neutrophils # Seg Neutrophils # Man Lymphocytes # (Manual) 1.0 L Monocytes # (Manual) 0.9 H Eosinophils # (Manual) 0.8 H PT INR Fibrinogen dRVVT Confirm Interp Factor V Activity POC ABG pH POC ABG pCO2 POC ABG pO2 ABG pO2 ABG HCO3 ABG Hemoglobin Oxyhemoglobin Sodium 135 L 135 L Potassium 3.5 L Chloride 93.6 L 94.4 L Carbon Dioxide 17 L 21 L BUN 45 H 28 H Creatinine 3.3 H 2.5 H Glucose 106 H POC Glucose Lactic Acid Calcium 7.3 L 7.1 L Phosphorus Magnesium Direct Bilirubin AST ALT Alkaline Phosphatase Lactate Dehydrogenase Troponin T C-Reactive Protein Total Protein Albumin Prealbumin Triglycerides Cholesterol LDL Cholesterol Direct HDL Cholesterol Urine pH Urine WBC (Auto) Urine Creatinine Urine Total Protein Fluid Total Protein Vancomycin Trough Rheumatoid Factor Complement C4 Miscellaneous Test Crossmatch 09/28/16 09/28/16 09/28/16 03:45 07:25 11:58 WBC 13.3 H RBC 3.01 L Hgb 8.4 L Hct 25.0 L MCV MCH MCHC RDW 20.5 H Plt Count 128 L Lymph % (Auto) [place] % (Auto) Lymph # [place] # Baso # Seg Neutrophils % Seg Neuts % (Manual) Lymphocytes % (Manual) 7.0 L Monocytes % (Manual) Eosinophils % (Manual) 6.0 H Basophils % (Manual) Nucleated RBC % Seg Neutrophils # Seg Neutrophils # Man Lymphocytes # (Manual) 0.9 L Monocytes # (Manual) Eosinophils # (Manual) 0.8 H PT INR Fibrinogen dRVVT Confirm Interp Factor V Activity POC ABG pH POC ABG pCO2 POC ABG pO2 ABG pO2 ABG HCO3 ABG Hemoglobin Oxyhemoglobin Sodium Potassium Chloride Carbon Dioxide BUN Creatinine Glucose POC Glucose 121 H Lactic Acid 4.50 H* Calcium Phosphorus Magnesium Direct Bilirubin AST ALT Alkaline Phosphatase Lactate Dehydrogenase Troponin T C-Reactive Protein Total Protein Albumin Prealbumin Triglycerides Cholesterol LDL Cholesterol Direct HDL Cholesterol Urine pH Urine WBC (Auto) Urine Creatinine Urine Total Protein Fluid Total Protein Vancomycin Trough Rheumatoid Factor Complement C4 Miscellaneous Test Crossmatch 09/29/16 09/29/16 09/29/16 06:45 06:45 06:45 WBC 14.9 H RBC 2.74 L Hgb 7.6 L Hct 23.2 L MCV MCH MCHC RDW 20.5 H Plt Count 81 L Lymph % (Auto) [place] % (Auto) Lymph # [place] # Baso # Seg Neutrophils % Seg Neuts % (Manual) 81.0 H Lymphocytes % (Manual) 4.0 L Monocytes % (Manual) Eosinophils % (Manual) Basophils % (Manual) Nucleated RBC % Seg Neutrophils # Seg Neutrophils # Man 12.1 H Lymphocytes # (Manual) 0.6 L Monocytes # (Manual) Eosinophils # (Manual) PT INR Fibrinogen dRVVT Confirm Interp Factor V Activity POC ABG pH POC ABG pCO2 POC ABG pO2 ABG pO2 ABG HCO3 ABG Hemoglobin Oxyhemoglobin Sodium 133 L Potassium 3.4 L Chloride 92.5 L Carbon Dioxide 21 L BUN 33 H Creatinine 3.0 H Glucose POC Glucose Lactic Acid Calcium 6.6 L Phosphorus Magnesium 1.40 L Direct Bilirubin 0.9 H AST ALT Alkaline Phosphatase Lactate Dehydrogenase Troponin T C-Reactive Protein Total Protein 4.3 L Albumin 1.3 L Prealbumin Triglycerides Cholesterol LDL Cholesterol Direct HDL Cholesterol Urine pH Urine WBC (Auto) Urine Creatinine Urine Total Protein Fluid Total Protein Vancomycin Trough Rheumatoid Factor Complement C4 Miscellaneous Test Crossmatch 09/29/16 09/29/16 09/30/16 17:52 20:12 00:07 WBC RBC Hgb Hct MCV MCH MCHC RDW Plt Count Lymph % (Auto) [place] % (Auto) Lymph # [place] # Baso # Seg Neutrophils % Seg Neuts % (Manual) Lymphocytes % (Manual) Monocytes % (Manual) Eosinophils % (Manual) Basophils % (Manual) Nucleated RBC % Seg Neutrophils # Seg Neutrophils # Man Lymphocytes # (Manual) Monocytes # (Manual) Eosinophils # (Manual) PT INR Fibrinogen dRVVT Confirm Interp Factor V Activity POC ABG pH POC ABG pCO2 POC ABG pO2 ABG pO2 ABG HCO3 ABG Hemoglobin Oxyhemoglobin Sodium Potassium Chloride Carbon Dioxide BUN Creatinine Glucose POC Glucose 50 L 51 L Lactic Acid Calcium Phosphorus Magnesium Direct Bilirubin AST ALT Alkaline Phosphatase Lactate Dehydrogenase Troponin T 0.204 H* C-Reactive Protein Total Protein Albumin Prealbumin Triglycerides Cholesterol 31 L LDL Cholesterol Direct 4 L HDL Cholesterol 3 L Urine pH Urine WBC (Auto) Urine Creatinine Urine Total Protein Fluid Total Protein Vancomycin Trough Rheumatoid Factor Complement C4 Miscellaneous Test Crossmatch 09/30/16 09/30/16 09/30/16 01:30 05:15 06:10 WBC RBC Hgb Hct MCV MCH MCHC RDW Plt Count Lymph % (Auto) [place] % (Auto) Lymph # [place] # Baso # Seg Neutrophils % Seg Neuts % (Manual) Lymphocytes % (Manual) Monocytes % (Manual) Eosinophils % (Manual) Basophils % (Manual) Nucleated RBC % Seg Neutrophils # Seg Neutrophils # Man Lymphocytes # (Manual) Monocytes # (Manual) Eosinophils # (Manual) PT INR Fibrinogen dRVVT Confirm Interp Factor V Activity POC ABG pH POC ABG pCO2 POC ABG pO2 ABG pO2 ABG HCO3 ABG Hemoglobin Oxyhemoglobin Sodium 133 L Potassium 3.2 L Chloride 93.2 L Carbon Dioxide 19 L BUN 36 H Creatinine 3.2 H Glucose 104 H POC Glucose 167 H 146 H Lactic Acid Calcium 6.4 L Phosphorus Magnesium 1.60 L Direct Bilirubin AST ALT Alkaline Phosphatase Lactate Dehydrogenase Troponin T C-Reactive Protein Total Protein Albumin Prealbumin Triglycerides Cholesterol LDL Cholesterol Direct HDL Cholesterol Urine pH Urine WBC (Auto) Urine Creatinine Urine Total Protein Fluid Total Protein Vancomycin Trough Rheumatoid Factor Complement C4 Miscellaneous Test Crossmatch 09/30/16 09/30/16 09/30/16 11:26 13:39 18:38 WBC RBC Hgb Hct MCV MCH MCHC RDW Plt Count Lymph % (Auto) [place] % (Auto) Lymph # [place] # Baso # Seg Neutrophils % Seg Neuts % (Manual) Lymphocytes % (Manual) Monocytes % (Manual) Eosinophils % (Manual) Basophils % (Manual) Nucleated RBC % Seg Neutrophils # Seg Neutrophils # Man Lymphocytes # (Manual) Monocytes # (Manual) Eosinophils # (Manual) PT INR Fibrinogen dRVVT Confirm Interp Factor V Activity POC ABG pH 7.479 H POC ABG pCO2 29.8 L POC ABG pO2 117 H ABG pO2 ABG HCO3 ABG Hemoglobin Oxyhemoglobin Sodium Potassium Chloride Carbon Dioxide BUN Creatinine Glucose POC Glucose 140 H 122 H Lactic Acid Calcium Phosphorus Magnesium Direct Bilirubin AST ALT Alkaline Phosphatase Lactate Dehydrogenase Troponin T C-Reactive Protein Total Protein Albumin Prealbumin Triglycerides Cholesterol LDL Cholesterol Direct HDL Cholesterol Urine pH Urine WBC (Auto) Urine Creatinine Urine Total Protein Fluid Total Protein Vancomycin Trough Rheumatoid Factor Complement C4 Miscellaneous Test Crossmatch 10/01/16 10/01/16 10/01/16 06:00 06:00 12:37 WBC 12.6 H RBC 2.75 L Hgb 7.3 L Hct 23.3 L MCV MCH 27 L MCHC RDW 20.6 H Plt Count 72 L Lymph % (Auto) [place] % (Auto) Lymph # [place] # Baso # Seg Neutrophils % Seg Neuts % (Manual) 31.0 L Lymphocytes % (Manual) 8.0 L Monocytes % (Manual) Eosinophils % (Manual) Basophils % (Manual) Nucleated RBC % 3.0 H Seg Neutrophils # Seg Neutrophils # Man Lymphocytes # (Manual) 1.0 L Monocytes # (Manual) Eosinophils # (Manual) PT INR Fibrinogen dRVVT Confirm Interp Factor V Activity POC ABG pH POC ABG pCO2 POC ABG pO2 ABG pO2 ABG HCO3 ABG Hemoglobin Oxyhemoglobin Sodium 127 L Potassium Chloride 86.8 L Carbon Dioxide 20 L BUN 42 H Creatinine 3.5 H Glucose POC Glucose 65 L Lactic Acid Calcium 7.0 L Phosphorus Magnesium Direct Bilirubin AST ALT Alkaline Phosphatase Lactate Dehydrogenase Troponin T C-Reactive Protein Total Protein Albumin Prealbumin Triglycerides Cholesterol LDL Cholesterol Direct HDL Cholesterol Urine pH Urine WBC (Auto) Urine Creatinine Urine Total Protein Fluid Total Protein Vancomycin Trough Rheumatoid Factor Complement C4 Miscellaneous Test Crossmatch 10/01/16 10/01/16 10/02/16 17:39 23:32 00:59 WBC RBC Hgb Hct MCV MCH MCHC RDW Plt Count Lymph % (Auto) [place] % (Auto) Lymph # [place] # Baso # Seg Neutrophils % Seg Neuts % (Manual) Lymphocytes % (Manual) Monocytes % (Manual) Eosinophils % (Manual) Basophils % (Manual) Nucleated RBC % Seg Neutrophils # Seg Neutrophils # Man Lymphocytes # (Manual) Monocytes # (Manual) Eosinophils # (Manual) PT INR Fibrinogen dRVVT Confirm Interp Factor V Activity POC ABG pH POC ABG pCO2 POC ABG pO2 ABG pO2 ABG HCO3 ABG Hemoglobin Oxyhemoglobin Sodium Potassium Chloride Carbon Dioxide BUN Creatinine Glucose POC Glucose 107 H 52 L 145 H Lactic Acid Calcium Phosphorus Magnesium Direct Bilirubin AST ALT Alkaline Phosphatase Lactate Dehydrogenase Troponin T C-Reactive Protein Total Protein Albumin Prealbumin Triglycerides Cholesterol LDL Cholesterol Direct HDL Cholesterol Urine pH Urine WBC (Auto) Urine Creatinine Urine Total Protein Fluid Total Protein Vancomycin Trough Rheumatoid Factor Complement C4 Miscellaneous Test Crossmatch 10/02/16 10/02/16 10/02/16 10:30 10:50 10:50 WBC 14.7 H RBC 2.76 L Hgb 7.4 L Hct 23.6 L MCV MCH 27 L MCHC RDW 20.2 H Plt Count 79 L Lymph % (Auto) [place] % (Auto) Lymph # [place] # Baso # Seg Neutrophils % Seg Neuts % (Manual) 86.0 H Lymphocytes % (Manual) 6.0 L Monocytes % (Manual) Eosinophils % (Manual) Basophils % (Manual) Nucleated RBC % Seg Neutrophils # Seg Neutrophils # Man 12.6 H Lymphocytes # (Manual) 0.9 L Monocytes # (Manual) Eosinophils # (Manual) PT INR Fibrinogen dRVVT Confirm Interp Factor V Activity POC ABG pH 7.486 H POC ABG pCO2 30.1 L POC ABG pO2 108 H ABG pO2 ABG HCO3 ABG Hemoglobin Oxyhemoglobin Sodium 131 L Potassium 3.4 L Chloride 89.9 L Carbon Dioxide BUN 26 H Creatinine 2.6 H Glucose POC Glucose Lactic Acid Calcium 7.0 L Phosphorus Magnesium Direct Bilirubin AST ALT Alkaline Phosphatase Lactate Dehydrogenase Troponin T C-Reactive Protein Total Protein Albumin Prealbumin Triglycerides Cholesterol LDL Cholesterol Direct HDL Cholesterol Urine pH Urine WBC (Auto) Urine Creatinine Urine Total Protein Fluid Total Protein Vancomycin Trough Rheumatoid Factor Complement C4 Miscellaneous Test Crossmatch 0810/03/16 10/03/16 23:45 00:45 05:10 WBC 12.9 H RBC 2.77 L Hgb 7.6 L Hct 23.7 L MCV MCH 27 L MCHC RDW 19.7 H Plt Count 89 L Lymph % (Auto) [place] % (Auto) Lymph # [place] # Baso # Seg Neutrophils % Seg Neuts % (Manual) Lymphocytes % (Manual) 8.0 L Monocytes % (Manual) Eosinophils % (Manual) Basophils % (Manual) Nucleated RBC % Seg Neutrophils # 11.9 H Seg Neutrophils # Man Lymphocytes # (Manual) 1.0 L Monocytes # (Manual) Eosinophils # (Manual) PT INR Fibrinogen dRVVT Confirm Interp Factor V Activity POC ABG pH POC ABG pCO2 POC ABG pO2 ABG pO2 ABG HCO3 ABG Hemoglobin Oxyhemoglobin Sodium Potassium Chloride Carbon Dioxide BUN Creatinine Glucose POC Glucose 55 L 199 H Lactic Acid Calcium Phosphorus Magnesium Direct Bilirubin AST ALT Alkaline Phosphatase Lactate Dehydrogenase Troponin T C-Reactive Protein Total Protein Albumin Prealbumin Triglycerides Cholesterol LDL Cholesterol Direct HDL Cholesterol Urine pH Urine WBC (Auto) Urine Creatinine Urine Total Protein Fluid Total Protein Vancomycin Trough Rheumatoid Factor Complement C4 Miscellaneous Test Crossmatch 10/03/16 10/03/16 10/03/16 05:10 12:14 13:18 WBC RBC Hgb Hct MCV MCH MCHC RDW Plt Count Lymph % (Auto) [place] % (Auto) Lymph # [place] # Baso # Seg Neutrophils % Seg Neuts % (Manual) Lymphocytes % (Manual) Monocytes % (Manual) Eosinophils % (Manual) Basophils % (Manual) Nucleated RBC % Seg Neutrophils # Seg Neutrophils # Man Lymphocytes # (Manual) Monocytes # (Manual) Eosinophils # (Manual) PT INR Fibrinogen dRVVT Confirm Interp Factor V Activity POC ABG pH POC ABG pCO2 POC ABG pO2 ABG pO2 ABG HCO3 ABG Hemoglobin Oxyhemoglobin Sodium 129 L Potassium 3.3 L Chloride 88.8 L Carbon Dioxide 20 L BUN 29 H Creatinine 2.8 H Glucose POC Glucose 68 L 127 H Lactic Acid Calcium 7.2 L Phosphorus Magnesium Direct Bilirubin AST ALT Alkaline Phosphatase Lactate Dehydrogenase Troponin T C-Reactive Protein Total Protein Albumin Prealbumin Triglycerides Cholesterol LDL Cholesterol Direct HDL Cholesterol Urine pH Urine WBC (Auto) Urine Creatinine Urine Total Protein Fluid Total Protein Vancomycin Trough Rheumatoid Factor Complement C4 Miscellaneous Test Crossmatch 10/03/16 10/03/16 10/03/16 14:42 18:21 19:09 WBC RBC Hgb Hct MCV MCH MCHC RDW Plt Count Lymph % (Auto) [place] % (Auto) Lymph # [place] # Baso # Seg Neutrophils % Seg Neuts % (Manual) Lymphocytes % (Manual) Monocytes % (Manual) Eosinophils % (Manual) Basophils % (Manual) Nucleated RBC % Seg Neutrophils # Seg Neutrophils # Man Lymphocytes # (Manual) Monocytes # (Manual) Eosinophils # (Manual) PT INR Fibrinogen dRVVT Confirm Interp Factor V Activity POC ABG pH 7.499 H POC ABG pCO2 28.4 L POC ABG pO2 44 L ABG pO2 ABG HCO3 ABG Hemoglobin Oxyhemoglobin Sodium Potassium Chloride Carbon Dioxide BUN Creatinine Glucose POC Glucose 64 L 205 H Lactic Acid Calcium Phosphorus Magnesium Direct Bilirubin AST ALT Alkaline Phosphatase Lactate Dehydrogenase Troponin T C-Reactive Protein Total Protein Albumin Prealbumin Triglycerides Cholesterol LDL Cholesterol Direct HDL Cholesterol Urine pH Urine WBC (Auto) Urine Creatinine Urine Total Protein Fluid Total Protein Vancomycin Trough Rheumatoid Factor Complement C4 Miscellaneous Test Crossmatch 10/03/16 10/04/16 10/04/16 23:33 04:18 06:30 WBC RBC 2.54 L Hgb 7.1 L Hct 21.7 L MCV MCH MCHC RDW 19.5 H Plt Count 76 L Lymph % (Auto) [place] % (Auto) Lymph # [place] # Baso # Seg Neutrophils % Seg Neuts % (Manual) 88.0 H Lymphocytes % (Manual) 6.0 L Monocytes % (Manual) Eosinophils % (Manual) Basophils % (Manual) Nucleated RBC % Seg Neutrophils # Seg Neutrophils # Man 8.8 H Lymphocytes # (Manual) 0.6 L Monocytes # (Manual) Eosinophils # (Manual) PT INR Fibrinogen dRVVT Confirm Interp Factor V Activity POC ABG pH 7.461 H POC ABG pCO2 33.6 L POC ABG pO2 211 H ABG pO2 ABG HCO3 ABG Hemoglobin Oxyhemoglobin Sodium Potassium Chloride Carbon Dioxide BUN Creatinine Glucose POC Glucose 136 H Lactic Acid Calcium Phosphorus Magnesium Direct Bilirubin AST ALT Alkaline Phosphatase Lactate Dehydrogenase Troponin T C-Reactive Protein Total Protein Albumin Prealbumin Triglycerides Cholesterol LDL Cholesterol Direct HDL Cholesterol Urine pH Urine WBC (Auto) Urine Creatinine Urine Total Protein Fluid Total Protein Vancomycin Trough Rheumatoid Factor Complement C4 Miscellaneous Test Crossmatch 10/04/16 10/04/16 10/04/16 06:30 11:45 17:54 WBC RBC Hgb Hct MCV MCH MCHC RDW Plt Count Lymph % (Auto) [place] % (Auto) Lymph # [place] # Baso # Seg Neutrophils % Seg Neuts % (Manual) Lymphocytes % (Manual) Monocytes % (Manual) Eosinophils % (Manual) Basophils % (Manual) Nucleated RBC % Seg Neutrophils # Seg Neutrophils # Man Lymphocytes # (Manual) Monocytes # (Manual) Eosinophils # (Manual) PT INR Fibrinogen dRVVT Confirm Interp Factor V Activity POC ABG pH POC ABG pCO2 POC ABG pO2 ABG pO2 ABG HCO3 ABG Hemoglobin Oxyhemoglobin Sodium 128 L Potassium Chloride 87.4 L Carbon Dioxide 20 L BUN 34 H Creatinine 2.9 H Glucose 127 H POC Glucose 158 H 160 H Lactic Acid Calcium 7.4 L Phosphorus Magnesium Direct Bilirubin AST ALT Alkaline Phosphatase Lactate Dehydrogenase Troponin T C-Reactive Protein Total Protein Albumin Prealbumin Triglycerides Cholesterol LDL Cholesterol Direct HDL Cholesterol Urine pH Urine WBC (Auto) Urine Creatinine Urine Total Protein Fluid Total Protein Vancomycin Trough Rheumatoid Factor Complement C4 Miscellaneous Test Crossmatch 10/04/16 10/05/16 10/05/16 23:25 04:30 05:00 WBC RBC 2.64 L Hgb 7.5 L Hct 22.6 L MCV MCH MCHC RDW 19.3 H Plt Count 80 L Lymph % (Auto) [place] % (Auto) Lymph # [place] # Baso # Seg Neutrophils % Seg Neuts % (Manual) Lymphocytes % (Manual) 12.0 L Monocytes % (Manual) Eosinophils % (Manual) Basophils % (Manual) Nucleated RBC % Seg Neutrophils # Seg Neutrophils # Man Lymphocytes # (Manual) Monocytes # (Manual) Eosinophils # (Manual) PT INR Fibrinogen dRVVT Confirm Interp Factor V Activity POC ABG pH 7.475 H POC ABG pCO2 33.3 L POC ABG pO2 140 H ABG pO2 ABG HCO3 ABG Hemoglobin Oxyhemoglobin Sodium Potassium Chloride Carbon Dioxide BUN Creatinine Glucose POC Glucose 141 H Lactic Acid Calcium Phosphorus Magnesium Direct Bilirubin AST ALT Alkaline Phosphatase Lactate Dehydrogenase Troponin T C-Reactive Protein Total Protein Albumin Prealbumin Triglycerides Cholesterol LDL Cholesterol Direct HDL Cholesterol Urine pH Urine WBC (Auto) Urine Creatinine Urine Total Protein Fluid Total Protein Vancomycin Trough Rheumatoid Factor Complement C4 Miscellaneous Test Crossmatch 10/05/16 10/05/16 10/05/16 05:00 05:09 12:58 WBC RBC Hgb Hct MCV MCH MCHC RDW Plt Count Lymph % (Auto) [place] % (Auto) Lymph # [place] # Baso # Seg Neutrophils % Seg Neuts % (Manual) Lymphocytes % (Manual) Monocytes % (Manual) Eosinophils % (Manual) Basophils % (Manual) Nucleated RBC % Seg Neutrophils # Seg Neutrophils # Man Lymphocytes # (Manual) Monocytes # (Manual) Eosinophils # (Manual) PT INR Fibrinogen dRVVT Confirm Interp Factor V Activity POC ABG pH POC ABG pCO2 POC ABG pO2 ABG pO2 ABG HCO3 ABG Hemoglobin Oxyhemoglobin Sodium 131 L Potassium Chloride 94.0 L Carbon Dioxide 20 L BUN 22 H Creatinine 2.0 H Glucose 123 H POC Glucose 166 H 179 H Lactic Acid Calcium 7.7 L Phosphorus 2.20 L D Magnesium Direct Bilirubin AST ALT Alkaline Phosphatase Lactate Dehydrogenase Troponin T C-Reactive Protein Total Protein Albumin Prealbumin Triglycerides Cholesterol LDL Cholesterol Direct HDL Cholesterol Urine pH Urine WBC (Auto) Urine Creatinine Urine Total Protein Fluid Total Protein Vancomycin Trough Rheumatoid Factor Complement C4 Miscellaneous Test Crossmatch 10/05/16 10/05/16 10/05/16 15:50 18:53 23:12 WBC RBC Hgb Hct MCV MCH MCHC RDW Plt Count Lymph % (Auto) [place] % (Auto) Lymph # [place] # Baso # Seg Neutrophils % Seg Neuts % (Manual) Lymphocytes % (Manual) Monocytes % (Manual) Eosinophils % (Manual) Basophils % (Manual) Nucleated RBC % Seg Neutrophils # Seg Neutrophils # Man Lymphocytes # (Manual) Monocytes # (Manual) Eosinophils # (Manual) PT INR Fibrinogen dRVVT Confirm Interp Factor V Activity POC ABG pH POC ABG pCO2 POC ABG pO2 ABG pO2 ABG HCO3 ABG Hemoglobin Oxyhemoglobin Sodium Potassium Chloride Carbon Dioxide BUN Creatinine Glucose POC Glucose 150 H 164 H Lactic Acid Calcium Phosphorus Magnesium Direct Bilirubin AST ALT Alkaline Phosphatase Lactate Dehydrogenase Troponin T C-Reactive Protein Total Protein Albumin Prealbumin Triglycerides Cholesterol LDL Cholesterol Direct HDL Cholesterol Urine pH Urine WBC (Auto) Urine Creatinine Urine Total Protein Fluid Total Protein Vancomycin Trough Rheumatoid Factor Complement C4 Miscellaneous Test Crossmatch See Detail 10/06/16 10/06/16 10/06/16 03:50 03:50 04:53 WBC RBC 3.00 L Hgb 8.6 L Hct 25.8 L MCV MCH MCHC RDW 17.9 H Plt Count 65 L Lymph % (Auto) [place] % (Auto) Lymph # [place] # Baso # Seg Neutrophils % Seg Neuts % (Manual) 30.0 L Lymphocytes % (Manual) 5.0 L Monocytes % (Manual) Eosinophils % (Manual) Basophils % (Manual) Nucleated RBC % Seg Neutrophils # Seg Neutrophils # Man Lymphocytes # (Manual) 0.4 L Monocytes # (Manual) Eosinophils # (Manual) PT INR Fibrinogen dRVVT Confirm Interp Factor V Activity POC ABG pH 7.310 L POC ABG pCO2 49.0 H POC ABG pO2 ABG pO2 ABG HCO3 ABG Hemoglobin Oxyhemoglobin Sodium 133 L Potassium Chloride 95.9 L Carbon Dioxide BUN 26 H Creatinine 2.0 H Glucose 116 H POC Glucose Lactic Acid Calcium 7.8 L Phosphorus Magnesium Direct Bilirubin AST ALT Alkaline Phosphatase Lactate Dehydrogenase Troponin T C-Reactive Protein Total Protein Albumin Prealbumin Triglycerides Cholesterol LDL Cholesterol Direct HDL Cholesterol Urine pH Urine WBC (Auto) Urine Creatinine Urine Total Protein Fluid Total Protein Vancomycin Trough Rheumatoid Factor Complement C4 Miscellaneous Test Crossmatch 10/06/16 10/06/16 10/06/16 05:23 11:52 18:34 WBC RBC Hgb Hct MCV MCH MCHC RDW Plt Count Lymph % (Auto) [place] % (Auto) Lymph # [place] # Baso # Seg Neutrophils % Seg Neuts % (Manual) Lymphocytes % (Manual) Monocytes % (Manual) Eosinophils % (Manual) Basophils % (Manual) Nucleated RBC % Seg Neutrophils # Seg Neutrophils # Man Lymphocytes # (Manual) Monocytes # (Manual) Eosinophils # (Manual) PT INR Fibrinogen dRVVT Confirm Interp Factor V Activity POC ABG pH POC ABG pCO2 POC ABG pO2 ABG pO2 ABG HCO3 ABG Hemoglobin Oxyhemoglobin Sodium Potassium Chloride Carbon Dioxide BUN Creatinine Glucose POC Glucose 126 H 116 H 129 H Lactic Acid Calcium Phosphorus Magnesium Direct Bilirubin AST ALT Alkaline Phosphatase Lactate Dehydrogenase Troponin T C-Reactive Protein Total Protein Albumin Prealbumin Triglycerides Cholesterol LDL Cholesterol Direct HDL Cholesterol Urine pH Urine WBC (Auto) Urine Creatinine Urine Total Protein Fluid Total Protein Vancomycin Trough Rheumatoid Factor Complement C4 Miscellaneous Test Crossmatch 10/07/16 10/07/16 10/07/16 03:45 05:00 10:00 WBC 17.0 H RBC 2.68 L Hgb 7.3 L Hct 25.3 L MCV MCH 27 L MCHC 29 L RDW 19.6 H Plt Count 74 L Lymph % (Auto) [place] % (Auto) Lymph # [place] # Baso # Seg Neutrophils % Seg Neuts % (Manual) Lymphocytes % (Manual) 12.0 L Monocytes % (Manual) Eosinophils % (Manual) Basophils % (Manual) Nucleated RBC % 4.0 H Seg Neutrophils # Seg Neutrophils # Man 10.7 H Lymphocytes # (Manual) Monocytes # (Manual) Eosinophils # (Manual) PT INR Fibrinogen dRVVT Confirm Interp Factor V Activity POC ABG pH POC ABG pCO2 POC ABG pO2 ABG pO2 ABG HCO3 ABG Hemoglobin Oxyhemoglobin Sodium 130 L Potassium 3.2 L Chloride 93.9 L Carbon Dioxide 20 L BUN 44 H Creatinine 2.7 H Glucose 129 H POC Glucose Lactic Acid Calcium 7.4 L Phosphorus Magnesium Direct Bilirubin AST ALT 6 L Alkaline Phosphatase 195 H Lactate Dehydrogenase Troponin T C-Reactive Protein Total Protein 4.9 L Albumin 1.0 L Prealbumin Triglycerides Cholesterol LDL Cholesterol Direct HDL Cholesterol Urine pH Urine WBC (Auto) Urine Creatinine Urine Total Protein Fluid Total Protein Vancomycin Trough Rheumatoid Factor Complement C4 Miscellaneous Test Flexitest 1 H Crossmatch 10/07/16 10/07/16 10/07/16 10:00 11:24 18:10 WBC RBC Hgb Hct MCV MCH MCHC RDW Plt Count Lymph % (Auto) [place] % (Auto) Lymph # [place] # Baso # Seg Neutrophils % Seg Neuts % (Manual) Lymphocytes % (Manual) Monocytes % (Manual) Eosinophils % (Manual) Basophils % (Manual) Nucleated RBC % Seg Neutrophils # Seg Neutrophils # Man Lymphocytes # (Manual) Monocytes # (Manual) Eosinophils # (Manual) PT INR Fibrinogen dRVVT Confirm Interp Factor V Activity POC ABG pH POC ABG pCO2 POC ABG pO2 ABG pO2 ABG HCO3 ABG Hemoglobin Oxyhemoglobin Sodium Potassium Chloride Carbon Dioxide BUN Creatinine Glucose POC Glucose 116 H 130 H Lactic Acid Calcium Phosphorus Magnesium Direct Bilirubin AST ALT Alkaline Phosphatase Lactate Dehydrogenase Troponin T C-Reactive Protein 19.40 H Total Protein Albumin Prealbumin Triglycerides Cholesterol LDL Cholesterol Direct HDL Cholesterol Urine pH Urine WBC (Auto) Urine Creatinine Urine Total Protein Fluid Total Protein Vancomycin Trough Rheumatoid Factor Complement C4 Miscellaneous Test Crossmatch 10/07/16 10/08/16 10/08/16 18:30 00:00 04:00 WBC RBC Hgb Hct MCV MCH MCHC RDW Plt Count Lymph % (Auto) [place] % (Auto) Lymph # [place] # Baso # Seg Neutrophils % Seg Neuts % (Manual) Lymphocytes % (Manual) Monocytes % (Manual) Eosinophils % (Manual) Basophils % (Manual) Nucleated RBC % Seg Neutrophils # Seg Neutrophils # Man Lymphocytes # (Manual) Monocytes # (Manual) Eosinophils # (Manual) PT INR Fibrinogen dRVVT Confirm Interp Factor V Activity POC ABG pH POC ABG pCO2 POC ABG pO2 ABG pO2 ABG HCO3 ABG Hemoglobin Oxyhemoglobin Sodium 132 L Potassium 3.3 L Chloride 93.6 L Carbon Dioxide 17 L BUN 59 H Creatinine 2.7 H Glucose 121 H POC Glucose 122 H Lactic Acid Calcium 7.6 L Phosphorus Magnesium Direct Bilirubin AST ALT Alkaline Phosphatase Lactate Dehydrogenase Troponin T C-Reactive Protein Total Protein Albumin Prealbumin Triglycerides Cholesterol LDL Cholesterol Direct HDL Cholesterol Urine pH Urine WBC (Auto) > 182.0 H Urine Creatinine Urine Total Protein Fluid Total Protein Vancomycin Trough Rheumatoid Factor Complement C4 Miscellaneous Test Crossmatch 10/08/16 10/08/16 10/08/16 04:30 05:30 11:51 WBC RBC 5.15 H Hgb 14.4 H D Hct 44.5 H D MCV MCH MCHC RDW 19.5 H Plt Count 56 L Lymph % (Auto) [place] % (Auto) Lymph # [place] # Baso # Seg Neutrophils % Seg Neuts % (Manual) 24.0 L Lymphocytes % (Manual) 8.0 L Monocytes % (Manual) Eosinophils % (Manual) Basophils % (Manual) Nucleated RBC % 9.0 H Seg Neutrophils # Seg Neutrophils # Man Lymphocytes # (Manual) 0.7 L Monocytes # (Manual) Eosinophils # (Manual) PT INR Fibrinogen dRVVT Confirm Interp Factor V Activity POC ABG pH POC ABG pCO2 POC ABG pO2 ABG pO2 ABG HCO3 ABG Hemoglobin Oxyhemoglobin Sodium Potassium Chloride Carbon Dioxide BUN Creatinine Glucose POC Glucose 125 H 150 H Lactic Acid Calcium Phosphorus Magnesium Direct Bilirubin AST ALT Alkaline Phosphatase Lactate Dehydrogenase Troponin T C-Reactive Protein Total Protein Albumin Prealbumin Triglycerides Cholesterol LDL Cholesterol Direct HDL Cholesterol Urine pH Urine WBC (Auto) Urine Creatinine Urine Total Protein Fluid Total Protein Vancomycin Trough Rheumatoid Factor Complement C4 Miscellaneous Test Crossmatch 10/08/16 10/08/16 10/08/16 12:49 17:07 19:30 WBC RBC Hgb 7.1 L D Hct 22.4 L D MCV MCH MCHC RDW Plt Count Lymph % (Auto) [place] % (Auto) Lymph # [place] # Baso # Seg Neutrophils % Seg Neuts % (Manual) Lymphocytes % (Manual) Monocytes % (Manual) Eosinophils % (Manual) Basophils % (Manual) Nucleated RBC % Seg Neutrophils # Seg Neutrophils # Man Lymphocytes # (Manual) Monocytes # (Manual) Eosinophils # (Manual) PT INR Fibrinogen dRVVT Confirm Interp Factor V Activity POC ABG pH POC ABG pCO2 28.2 L POC ABG pO2 111 H ABG pO2 ABG HCO3 ABG Hemoglobin Oxyhemoglobin Sodium Potassium Chloride Carbon Dioxide BUN Creatinine Glucose POC Glucose 145 H Lactic Acid Calcium Phosphorus Magnesium Direct Bilirubin AST ALT Alkaline Phosphatase Lactate Dehydrogenase Troponin T C-Reactive Protein Total Protein Albumin Prealbumin Triglycerides Cholesterol LDL Cholesterol Direct HDL Cholesterol Urine pH Urine WBC (Auto) Urine Creatinine Urine Total Protein Fluid Total Protein Vancomycin Trough Rheumatoid Factor Complement C4 Miscellaneous Test Crossmatch 10/08/16 10/09/16 10/09/16 19:30 03:45 03:45 WBC 12.6 H RBC 2.36 L Hgb 6.7 L Hct 21.1 L MCV MCH MCHC RDW 19.5 H Plt Count 75 L Lymph % (Auto) [place] % (Auto) Lymph # [place] # Baso # Seg Neutrophils % Seg Neuts % (Manual) Lymphocytes % (Manual) Monocytes % (Manual) 10.0 H Eosinophils % (Manual) Basophils % (Manual) Nucleated RBC % 3.0 H Seg Neutrophils # Seg Neutrophils # Man Lymphocytes # (Manual) Monocytes # (Manual) 1.3 H Eosinophils # (Manual) PT 18.0 H INR 1.41 H Fibrinogen dRVVT Confirm Interp Factor V Activity POC ABG pH POC ABG pCO2 POC ABG pO2 ABG pO2 ABG HCO3 ABG Hemoglobin Oxyhemoglobin Sodium 135 L Potassium Chloride Carbon Dioxide 17 L BUN 81 H Creatinine 3.2 H Glucose 109 H POC Glucose Lactic Acid Calcium 7.4 L Phosphorus 4.60 H D Magnesium Direct Bilirubin AST ALT Alkaline Phosphatase Lactate Dehydrogenase Troponin T C-Reactive Protein Total Protein Albumin Prealbumin Triglycerides Cholesterol LDL Cholesterol Direct HDL Cholesterol Urine pH Urine WBC (Auto) Urine Creatinine Urine Total Protein Fluid Total Protein Vancomycin Trough Rheumatoid Factor Complement C4 Miscellaneous Test Crossmatch 10/09/16 10/09/16 10/09/16 03:45 05:14 07:20 WBC RBC Hgb Hct MCV MCH MCHC RDW Plt Count Lymph % (Auto) [place] % (Auto) Lymph # [place] # Baso # Seg Neutrophils % Seg Neuts % (Manual) Lymphocytes % (Manual) Monocytes % (Manual) Eosinophils % (Manual) Basophils % (Manual) Nucleated RBC % Seg Neutrophils # Seg Neutrophils # Man Lymphocytes # (Manual) Monocytes # (Manual) Eosinophils # (Manual) PT 19.0 H INR 1.51 H Fibrinogen dRVVT Confirm Interp Factor V Activity POC ABG pH POC ABG pCO2 POC ABG pO2 ABG pO2 ABG HCO3 ABG Hemoglobin Oxyhemoglobin Sodium Potassium Chloride Carbon Dioxide BUN Creatinine Glucose POC Glucose 151 H Lactic Acid Calcium Phosphorus Magnesium Direct Bilirubin AST ALT Alkaline Phosphatase Lactate Dehydrogenase Troponin T C-Reactive Protein Total Protein Albumin Prealbumin Triglycerides Cholesterol LDL Cholesterol Direct HDL Cholesterol Urine pH Urine WBC (Auto) Urine Creatinine Urine Total Protein Fluid Total Protein Vancomycin Trough Rheumatoid Factor Complement C4 Miscellaneous Test Crossmatch See Detail 10/09/16 10/09/16 10/09/16 11:46 16:20 16:43 WBC RBC Hgb 7.2 L Hct 22.2 L MCV MCH MCHC RDW Plt Count Lymph % (Auto) [place] % (Auto) Lymph # [place] # Baso # Seg Neutrophils % Seg Neuts % (Manual) Lymphocytes % (Manual) Monocytes % (Manual) Eosinophils % (Manual) Basophils % (Manual) Nucleated RBC % Seg Neutrophils # Seg Neutrophils # Man Lymphocytes # (Manual) Monocytes # (Manual) Eosinophils # (Manual) PT INR Fibrinogen dRVVT Confirm Interp Factor V Activity POC ABG pH POC ABG pCO2 POC ABG pO2 ABG pO2 ABG HCO3 ABG Hemoglobin Oxyhemoglobin Sodium Potassium Chloride Carbon Dioxide BUN Creatinine Glucose POC Glucose 133 H 141 H Lactic Acid Calcium Phosphorus Magnesium Direct Bilirubin AST ALT Alkaline Phosphatase Lactate Dehydrogenase Troponin T C-Reactive Protein Total Protein Albumin Prealbumin Triglycerides Cholesterol LDL Cholesterol Direct HDL Cholesterol Urine pH Urine WBC (Auto) Urine Creatinine Urine Total Protein Fluid Total Protein Vancomycin Trough Rheumatoid Factor Complement C4 Miscellaneous Test Crossmatch 10/10/16 10/10/16 10/10/16 05:00 05:00 11:19 WBC 18.5 H RBC 2.19 L Hgb 6.4 L Hct 19.6 L* MCV MCH MCHC RDW 19.3 H Plt Count 93 L Lymph % (Auto) [place] % (Auto) Lymph # [place] # Baso # Seg Neutrophils % Seg Neuts % (Manual) Lymphocytes % (Manual) 10.0 L Monocytes % (Manual) Eosinophils % (Manual) Basophils % (Manual) Nucleated RBC % 4.0 H Seg Neutrophils # Seg Neutrophils # Man 11.3 H Lymphocytes # (Manual) Monocytes # (Manual) Eosinophils # (Manual) PT INR Fibrinogen dRVVT Confirm Interp Factor V Activity POC ABG pH POC ABG pCO2 POC ABG pO2 ABG pO2 ABG HCO3 ABG Hemoglobin Oxyhemoglobin Sodium Potassium 5.7 H D Chloride Carbon Dioxide 16 L BUN 94 H Creatinine 3.1 H Glucose 131 H POC Glucose 153 H Lactic Acid Calcium 8.2 L Phosphorus 5.10 H Magnesium 2.40 H Direct Bilirubin 0.3 H AST ALT < 5 L Alkaline Phosphatase 319 H Lactate Dehydrogenase Troponin T C-Reactive Protein Total Protein 5.1 L Albumin 1.0 L Prealbumin Triglycerides Cholesterol LDL Cholesterol Direct HDL Cholesterol Urine pH Urine WBC (Auto) Urine Creatinine Urine Total Protein Fluid Total Protein Vancomycin Trough Rheumatoid Factor Complement C4 Miscellaneous Test Crossmatch 10/10/16 10/10/16 10/11/16 17:50 23:30 04:15 WBC RBC Hgb Hct MCV MCH MCHC RDW Plt Count Lymph % (Auto) [place] % (Auto) Lymph # [place] # Baso # Seg Neutrophils % Seg Neuts % (Manual) Lymphocytes % (Manual) Monocytes % (Manual) Eosinophils % (Manual) Basophils % (Manual) Nucleated RBC % Seg Neutrophils # Seg Neutrophils # Man Lymphocytes # (Manual) Monocytes # (Manual) Eosinophils # (Manual) PT INR Fibrinogen dRVVT Confirm Interp Factor V Activity POC ABG pH POC ABG pCO2 POC ABG pO2 ABG pO2 ABG HCO3 ABG Hemoglobin Oxyhemoglobin Sodium Potassium Chloride 96.4 L Carbon Dioxide 21 L BUN 57 H Creatinine 2.1 H Glucose 151 H POC Glucose 146 H 141 H Lactic Acid Calcium 8.3 L Phosphorus Magnesium Direct Bilirubin AST ALT Alkaline Phosphatase Lactate Dehydrogenase Troponin T C-Reactive Protein Total Protein Albumin Prealbumin Triglycerides Cholesterol LDL Cholesterol Direct HDL Cholesterol Urine pH Urine WBC (Auto) Urine Creatinine Urine Total Protein Fluid Total Protein Vancomycin Trough Rheumatoid Factor Complement C4 Miscellaneous Test Crossmatch 10/11/16 10/11/16 10/11/16 04:15 04:15 05:30 WBC 28.3 H RBC 3.12 L Hgb 9.3 L Hct 28.7 L D MCV MCH MCHC RDW 17.7 H Plt Count 128 L Lymph % (Auto) [place] % (Auto) Lymph # [place] # Baso # Seg Neutrophils % Seg Neuts % (Manual) Lymphocytes % (Manual) Monocytes % (Manual) Eosinophils % (Manual) Basophils % (Manual) Nucleated RBC % Seg Neutrophils # Seg Neutrophils # Man Lymphocytes # (Manual) Monocytes # (Manual) Eosinophils # (Manual) PT INR Fibrinogen dRVVT Confirm Interp Factor V Activity POC ABG pH POC ABG pCO2 POC ABG pO2 ABG pO2 ABG HCO3 ABG Hemoglobin Oxyhemoglobin Sodium Potassium Chloride Carbon Dioxide BUN Creatinine Glucose POC Glucose 167 H Lactic Acid Calcium Phosphorus Magnesium Direct Bilirubin AST ALT Alkaline Phosphatase Lactate Dehydrogenase Troponin T C-Reactive Protein 15.80 H Total Protein Albumin Prealbumin Triglycerides Cholesterol LDL Cholesterol Direct HDL Cholesterol Urine pH Urine WBC (Auto) Urine Creatinine Urine Total Protein Fluid Total Protein Vancomycin Trough Rheumatoid Factor Complement C4 Miscellaneous Test Crossmatch 10/11/16 10/11/16 10/11/16 11:40 15:49 23:57 WBC RBC Hgb Hct MCV MCH MCHC RDW Plt Count Lymph % (Auto) [place] % (Auto) Lymph # [place] # Baso # Seg Neutrophils % Seg Neuts % (Manual) Lymphocytes % (Manual) Monocytes % (Manual) Eosinophils % (Manual) Basophils % (Manual) Nucleated RBC % Seg Neutrophils # Seg Neutrophils # Man Lymphocytes # (Manual) Monocytes # (Manual) Eosinophils # (Manual) PT INR Fibrinogen dRVVT Confirm Interp Factor V Activity POC ABG pH POC ABG pCO2 POC ABG pO2 ABG pO2 ABG HCO3 ABG Hemoglobin Oxyhemoglobin Sodium Potassium Chloride Carbon Dioxide BUN Creatinine Glucose POC Glucose 139 H 168 H 161 H Lactic Acid Calcium Phosphorus Magnesium Direct Bilirubin AST ALT Alkaline Phosphatase Lactate Dehydrogenase Troponin T C-Reactive Protein Total Protein Albumin Prealbumin Triglycerides Cholesterol LDL Cholesterol Direct HDL Cholesterol Urine pH Urine WBC (Auto) Urine Creatinine Urine Total Protein Fluid Total Protein Vancomycin Trough Rheumatoid Factor Complement C4 Miscellaneous Test Crossmatch 10/12/16 10/12/16 10/12/16 04:40 04:40 05:44 WBC 22.5 H RBC 2.88 L Hgb 8.8 L Hct 26.8 L MCV MCH MCHC RDW 17.8 H Plt Count Lymph % (Auto) [place] % (Auto) Lymph # [place] # Baso # Seg Neutrophils % Seg Neuts % (Manual) Lymphocytes % (Manual) Monocytes % (Manual) Eosinophils % (Manual) Basophils % (Manual) Nucleated RBC % Seg Neutrophils # Seg Neutrophils # Man Lymphocytes # (Manual) Monocytes # (Manual) Eosinophils # (Manual) PT INR Fibrinogen dRVVT Confirm Interp Factor V Activity POC ABG pH POC ABG pCO2 POC ABG pO2 ABG pO2 ABG HCO3 ABG Hemoglobin Oxyhemoglobin Sodium 134 L Potassium Chloride 93.0 L Carbon Dioxide BUN 74 H Creatinine 2.5 H Glucose 137 H POC Glucose 158 H Lactic Acid Calcium 8.2 L Phosphorus Magnesium Direct Bilirubin AST ALT Alkaline Phosphatase Lactate Dehydrogenase Troponin T C-Reactive Protein Total Protein Albumin Prealbumin Triglycerides Cholesterol LDL Cholesterol Direct HDL Cholesterol Urine pH Urine WBC (Auto) Urine Creatinine Urine Total Protein Fluid Total Protein Vancomycin Trough Rheumatoid Factor Complement C4 Miscellaneous Test Crossmatch 10/12/16 10/12/16 10/12/16 12:27 18:18 23:46 WBC RBC Hgb Hct MCV MCH MCHC RDW Plt Count Lymph % (Auto) [place] % (Auto) Lymph # [place] # Baso # Seg Neutrophils % Seg Neuts % (Manual) Lymphocytes % (Manual) Monocytes % (Manual) Eosinophils % (Manual) Basophils % (Manual) Nucleated RBC % Seg Neutrophils # Seg Neutrophils # Man Lymphocytes # (Manual) Monocytes # (Manual) Eosinophils # (Manual) PT INR Fibrinogen dRVVT Confirm Interp Factor V Activity POC ABG pH POC ABG pCO2 POC ABG pO2 ABG pO2 ABG HCO3 ABG Hemoglobin Oxyhemoglobin Sodium Potassium Chloride Carbon Dioxide BUN Creatinine Glucose POC Glucose 153 H 140 H 150 H Lactic Acid Calcium Phosphorus Magnesium Direct Bilirubin AST ALT Alkaline Phosphatase Lactate Dehydrogenase Troponin T C-Reactive Protein Total Protein Albumin Prealbumin Triglycerides Cholesterol LDL Cholesterol Direct HDL Cholesterol Urine pH Urine WBC (Auto) Urine Creatinine Urine Total Protein Fluid Total Protein Vancomycin Trough Rheumatoid Factor Complement C4 Miscellaneous Test Crossmatch 10/13/16 10/13/16 10/13/16 06:22 09:20 12:29 WBC RBC Hgb Hct MCV MCH MCHC RDW Plt Count Lymph % (Auto) [place] % (Auto) Lymph # [place] # Baso # Seg Neutrophils % Seg Neuts % (Manual) Lymphocytes % (Manual) Monocytes % (Manual) Eosinophils % (Manual) Basophils % (Manual) Nucleated RBC % Seg Neutrophils # Seg Neutrophils # Man Lymphocytes # (Manual) Monocytes # (Manual) Eosinophils # (Manual) PT INR Fibrinogen dRVVT Confirm Interp Factor V Activity POC ABG pH POC ABG pCO2 POC ABG pO2 ABG pO2 ABG HCO3 ABG Hemoglobin Oxyhemoglobin Sodium Potassium Chloride Carbon Dioxide BUN Creatinine Glucose POC Glucose 165 H 193 H Lactic Acid Calcium Phosphorus Magnesium Direct Bilirubin AST ALT Alkaline Phosphatase Lactate Dehydrogenase Troponin T C-Reactive Protein Total Protein Albumin Prealbumin Triglycerides Cholesterol LDL Cholesterol Direct HDL Cholesterol Urine pH Urine WBC (Auto) Urine Creatinine Urine Total Protein Fluid Total Protein Vancomycin Trough Rheumatoid Factor Complement C4 Miscellaneous Test Flexitest 1 H Crossmatch 10/13/16 10/13/16 10/13/16 18:09 Unknown Unknown WBC 23.4 H RBC 2.83 L Hgb 8.7 L Hct 26.1 L MCV MCH MCHC RDW 18.1 H Plt Count Lymph % (Auto) [place] % (Auto) Lymph # [place] # Baso # Seg Neutrophils % Seg Neuts % (Manual) Lymphocytes % (Manual) Monocytes % (Manual) Eosinophils % (Manual) Basophils % (Manual) Nucleated RBC % Seg Neutrophils # Seg Neutrophils # Man Lymphocytes # (Manual) Monocytes # (Manual) Eosinophils # (Manual) PT INR Fibrinogen dRVVT Confirm Interp Factor V Activity POC ABG pH POC ABG pCO2 POC ABG pO2 ABG pO2 ABG HCO3 ABG Hemoglobin Oxyhemoglobin Sodium Potassium Chloride 95.8 L Carbon Dioxide BUN 82 H Creatinine 2.6 H Glucose 152 H POC Glucose 166 H Lactic Acid Calcium Phosphorus Magnesium Direct Bilirubin AST ALT Alkaline Phosphatase Lactate Dehydrogenase Troponin T C-Reactive Protein Total Protein Albumin Prealbumin Triglycerides Cholesterol LDL Cholesterol Direct HDL Cholesterol Urine pH Urine WBC (Auto) Urine Creatinine Urine Total Protein Fluid Total Protein Vancomycin Trough Rheumatoid Factor Complement C4 Miscellaneous Test Crossmatch 10/14/16 10/14/16 10/14/16 05:38 06:35 08:10 WBC 20.7 H RBC 2.81 L Hgb 8.4 L Hct 27.2 L MCV MCH MCHC RDW 19.4 H Plt Count Lymph % (Auto) [place] % (Auto) Lymph # [place] # Baso # Seg Neutrophils % Seg Neuts % (Manual) Lymphocytes % (Manual) Monocytes % (Manual) Eosinophils % (Manual) Basophils % (Manual) Nucleated RBC % Seg Neutrophils # Seg Neutrophils # Man Lymphocytes # (Manual) Monocytes # (Manual) Eosinophils # (Manual) PT INR Fibrinogen dRVVT Confirm Interp Factor V Activity POC ABG pH POC ABG pCO2 POC ABG pO2 ABG pO2 ABG HCO3 ABG Hemoglobin Oxyhemoglobin Sodium Potassium Chloride Carbon Dioxide BUN 58 H Creatinine 1.9 H Glucose 169 H POC Glucose 195 H Lactic Acid Calcium Phosphorus Magnesium Direct Bilirubin AST ALT Alkaline Phosphatase Lactate Dehydrogenase Troponin T C-Reactive Protein Total Protein Albumin Prealbumin Triglycerides Cholesterol LDL Cholesterol Direct HDL Cholesterol Urine pH Urine WBC (Auto) Urine Creatinine Urine Total Protein Fluid Total Protein Vancomycin Trough Rheumatoid Factor Complement C4 Miscellaneous Test Crossmatch 10/14/16 10/14/16 10/14/16 11:44 17:13 23:28 WBC RBC Hgb Hct MCV MCH MCHC RDW Plt Count Lymph % (Auto) [place] % (Auto) Lymph # [place] # Baso # Seg Neutrophils % Seg Neuts % (Manual) Lymphocytes % (Manual) Monocytes % (Manual) Eosinophils % (Manual) Basophils % (Manual) Nucleated RBC % Seg Neutrophils # Seg Neutrophils # Man Lymphocytes # (Manual) Monocytes # (Manual) Eosinophils # (Manual) PT INR Fibrinogen dRVVT Confirm Interp Factor V Activity POC ABG pH POC ABG pCO2 POC ABG pO2 ABG pO2 ABG HCO3 ABG Hemoglobin Oxyhemoglobin Sodium Potassium Chloride Carbon Dioxide BUN Creatinine Glucose POC Glucose 174 H 121 H 151 H Lactic Acid Calcium Phosphorus Magnesium Direct Bilirubin AST ALT Alkaline Phosphatase Lactate Dehydrogenase Troponin T C-Reactive Protein Total Protein Albumin Prealbumin Triglycerides Cholesterol LDL Cholesterol Direct HDL Cholesterol Urine pH Urine WBC (Auto) Urine Creatinine Urine Total Protein Fluid Total Protein Vancomycin Trough Rheumatoid Factor Complement C4 Miscellaneous Test Crossmatch 10/15/16 10/15/16 10/15/16 05:06 12:26 17:48 WBC RBC Hgb Hct MCV MCH MCHC RDW Plt Count Lymph % (Auto) [place] % (Auto) Lymph # [place] # Baso # Seg Neutrophils % Seg Neuts % (Manual) Lymphocytes % (Manual) Monocytes % (Manual) Eosinophils % (Manual) Basophils % (Manual) Nucleated RBC % Seg Neutrophils # Seg Neutrophils # Man Lymphocytes # (Manual) Monocytes # (Manual) Eosinophils # (Manual) PT INR Fibrinogen dRVVT Confirm Interp Factor V Activity POC ABG pH POC ABG pCO2 POC ABG pO2 ABG pO2 ABG HCO3 ABG Hemoglobin Oxyhemoglobin Sodium Potassium Chloride Carbon Dioxide BUN Creatinine Glucose POC Glucose 151 H 149 H 153 H Lactic Acid Calcium Phosphorus Magnesium Direct Bilirubin AST ALT Alkaline Phosphatase Lactate Dehydrogenase Troponin T C-Reactive Protein Total Protein Albumin Prealbumin Triglycerides Cholesterol LDL Cholesterol Direct HDL Cholesterol Urine pH Urine WBC (Auto) Urine Creatinine Urine Total Protein Fluid Total Protein Vancomycin Trough Rheumatoid Factor Complement C4 Miscellaneous Test Crossmatch 10/15/16 10/15/16 10/16/16 Unknown Unknown 00:02 WBC 23.4 H RBC 2.78 L Hgb 8.5 L Hct 25.7 L MCV MCH MCHC RDW 18.7 H Plt Count Lymph % (Auto) [place] % (Auto) Lymph # [place] # Baso # Seg Neutrophils % Seg Neuts % (Manual) Lymphocytes % (Manual) Monocytes % (Manual) Eosinophils % (Manual) Basophils % (Manual) Nucleated RBC % Seg Neutrophils # Seg Neutrophils # Man Lymphocytes # (Manual) Monocytes # (Manual) Eosinophils # (Manual) PT INR Fibrinogen dRVVT Confirm Interp Factor V Activity POC ABG pH POC ABG pCO2 POC ABG pO2 ABG pO2 ABG HCO3 ABG Hemoglobin Oxyhemoglobin Sodium Potassium Chloride Carbon Dioxide BUN 73 H Creatinine 2.3 H Glucose 120 H POC Glucose 137 H Lactic Acid Calcium Phosphorus Magnesium Direct Bilirubin AST ALT Alkaline Phosphatase Lactate Dehydrogenase Troponin T C-Reactive Protein Total Protein Albumin Prealbumin Triglycerides Cholesterol LDL Cholesterol Direct HDL Cholesterol Urine pH Urine WBC (Auto) Urine Creatinine Urine Total Protein Fluid Total Protein Vancomycin Trough Rheumatoid Factor Complement C4 Miscellaneous Test Crossmatch 10/16/16 10/16/16 10/16/16 05:44 06:25 06:25 WBC 22.5 H RBC 2.76 L Hgb 8.3 L Hct 25.2 L MCV MCH MCHC RDW 18.3 H Plt Count Lymph % (Auto) [place] % (Auto) Lymph # [place] # Baso # Seg Neutrophils % Seg Neuts % (Manual) Lymphocytes % (Manual) Monocytes % (Manual) Eosinophils % (Manual) Basophils % (Manual) Nucleated RBC % Seg Neutrophils # Seg Neutrophils # Man Lymphocytes # (Manual) Monocytes # (Manual) Eosinophils # (Manual) PT INR Fibrinogen dRVVT Confirm Interp Factor V Activity POC ABG pH POC ABG pCO2 POC ABG pO2 ABG pO2 ABG HCO3 ABG Hemoglobin Oxyhemoglobin Sodium Potassium Chloride Carbon Dioxide BUN 92 H Creatinine 3.0 H Glucose 138 H POC Glucose 110 H Lactic Acid Calcium Phosphorus Magnesium Direct Bilirubin AST ALT Alkaline Phosphatase Lactate Dehydrogenase Troponin T C-Reactive Protein Total Protein Albumin Prealbumin Triglycerides Cholesterol LDL Cholesterol Direct HDL Cholesterol Urine pH Urine WBC (Auto) Urine Creatinine Urine Total Protein Fluid Total Protein Vancomycin Trough Rheumatoid Factor Complement C4 Miscellaneous Test Crossmatch 0810/16/16 10/16/16 11:27 11:48 17:36 WBC RBC Hgb Hct MCV MCH MCHC RDW Plt Count Lymph % (Auto) [place] % (Auto) Lymph # [place] # Baso # Seg Neutrophils % Seg Neuts % (Manual) Lymphocytes % (Manual) Monocytes % (Manual) Eosinophils % (Manual) Basophils % (Manual) Nucleated RBC % Seg Neutrophils # Seg Neutrophils # Man Lymphocytes # (Manual) Monocytes # (Manual) Eosinophils # (Manual) PT INR Fibrinogen dRVVT Confirm Interp Factor V Activity POC ABG pH 7.582 H POC ABG pCO2 27.4 L POC ABG pO2 110 H ABG pO2 ABG HCO3 ABG Hemoglobin Oxyhemoglobin Sodium Potassium Chloride Carbon Dioxide BUN Creatinine Glucose POC Glucose 121 H 133 H Lactic Acid Calcium Phosphorus Magnesium Direct Bilirubin AST ALT Alkaline Phosphatase Lactate Dehydrogenase Troponin T C-Reactive Protein Total Protein Albumin Prealbumin Triglycerides Cholesterol LDL Cholesterol Direct HDL Cholesterol Urine pH Urine WBC (Auto) Urine Creatinine Urine Total Protein Fluid Total Protein Vancomycin Trough Rheumatoid Factor Complement C4 Miscellaneous Test Crossmatch 10/16/16 10/17/16 10/17/16 20:48 04:24 04:24 WBC 21.4 H RBC 2.72 L Hgb 8.0 L Hct 25.2 L MCV MCH MCHC RDW 18.0 H Plt Count Lymph % (Auto) [place] % (Auto) Lymph # [place] # Baso # Seg Neutrophils % Seg Neuts % (Manual) Lymphocytes % (Manual) Monocytes % (Manual) Eosinophils % (Manual) Basophils % (Manual) Nucleated RBC % Seg Neutrophils # Seg Neutrophils # Man Lymphocytes # (Manual) Monocytes # (Manual) Eosinophils # (Manual) PT INR Fibrinogen dRVVT Confirm Interp Factor V Activity POC ABG pH 7.561 H POC ABG pCO2 24.4 L POC ABG pO2 77 L ABG pO2 ABG HCO3 ABG Hemoglobin Oxyhemoglobin Sodium 148 H Potassium Chloride Carbon Dioxide BUN 104 H Creatinine 3.0 H Glucose 149 H POC Glucose Lactic Acid Calcium Phosphorus Magnesium Direct Bilirubin AST ALT Alkaline Phosphatase 138 H Lactate Dehydrogenase Troponin T C-Reactive Protein Total Protein 6.2 L Albumin 1.5 L Prealbumin Triglycerides Cholesterol LDL Cholesterol Direct HDL Cholesterol Urine pH Urine WBC (Auto) Urine Creatinine Urine Total Protein Fluid Total Protein Vancomycin Trough Rheumatoid Factor Complement C4 Miscellaneous Test Crossmatch 10/17/16 10/17/16 10/17/16 06:02 12:17 17:14 WBC RBC Hgb Hct MCV MCH MCHC RDW Plt Count Lymph % (Auto) [place] % (Auto) Lymph # [place] # Baso # Seg Neutrophils % Seg Neuts % (Manual) Lymphocytes % (Manual) Monocytes % (Manual) Eosinophils % (Manual) Basophils % (Manual) Nucleated RBC % Seg Neutrophils # Seg Neutrophils # Man Lymphocytes # (Manual) Monocytes # (Manual) Eosinophils # (Manual) PT INR Fibrinogen dRVVT Confirm Interp Factor V Activity POC ABG pH POC ABG pCO2 POC ABG pO2 ABG pO2 ABG HCO3 ABG Hemoglobin Oxyhemoglobin Sodium Potassium Chloride Carbon Dioxide BUN Creatinine Glucose POC Glucose 170 H 167 H 126 H Lactic Acid Calcium Phosphorus Magnesium Direct Bilirubin AST ALT Alkaline Phosphatase Lactate Dehydrogenase Troponin T C-Reactive Protein Total Protein Albumin Prealbumin Triglycerides Cholesterol LDL Cholesterol Direct HDL Cholesterol Urine pH Urine WBC (Auto) Urine Creatinine Urine Total Protein Fluid Total Protein Vancomycin Trough Rheumatoid Factor Complement C4 Miscellaneous Test Crossmatch 10/17/16 10/18/16 10/18/16 23:17 04:00 04:00 WBC 20.7 H RBC 2.47 L Hgb 7.4 L Hct 22.9 L MCV MCH MCHC RDW 17.5 H Plt Count Lymph % (Auto) [place] % (Auto) Lymph # [place] # Baso # Seg Neutrophils % Seg Neuts % (Manual) Lymphocytes % (Manual) Monocytes % (Manual) Eosinophils % (Manual) Basophils % (Manual) Nucleated RBC % Seg Neutrophils # Seg Neutrophils # Man Lymphocytes # (Manual) Monocytes # (Manual) Eosinophils # (Manual) PT INR Fibrinogen dRVVT Confirm Interp Factor V Activity POC ABG pH POC ABG pCO2 POC ABG pO2 ABG pO2 ABG HCO3 ABG Hemoglobin Oxyhemoglobin Sodium 149 H Potassium Chloride 107.9 H Carbon Dioxide 20 L BUN 117 H Creatinine 3.2 H Glucose 119 H POC Glucose 121 H Lactic Acid Calcium Phosphorus Magnesium Direct Bilirubin AST ALT Alkaline Phosphatase Lactate Dehydrogenase Troponin T C-Reactive Protein Total Protein Albumin Prealbumin Triglycerides Cholesterol LDL Cholesterol Direct HDL Cholesterol Urine pH Urine WBC (Auto) Urine Creatinine Urine Total Protein Fluid Total Protein Vancomycin Trough Rheumatoid Factor Complement C4 Miscellaneous Test Crossmatch 10/18/16 10/18/16 10/18/16 05:23 10:46 17:30 WBC RBC Hgb Hct MCV MCH MCHC RDW Plt Count Lymph % (Auto) [place] % (Auto) Lymph # [place] # Baso # Seg Neutrophils % Seg Neuts % (Manual) Lymphocytes % (Manual) Monocytes % (Manual) Eosinophils % (Manual) Basophils % (Manual) Nucleated RBC % Seg Neutrophils # Seg Neutrophils # Man Lymphocytes # (Manual) Monocytes # (Manual) Eosinophils # (Manual) PT INR Fibrinogen dRVVT Confirm Interp Factor V Activity POC ABG pH POC ABG pCO2 POC ABG pO2 ABG pO2 ABG HCO3 ABG Hemoglobin Oxyhemoglobin Sodium Potassium Chloride Carbon Dioxide BUN Creatinine Glucose POC Glucose 119 H 155 H 124 H Lactic Acid Calcium Phosphorus Magnesium Direct Bilirubin AST ALT Alkaline Phosphatase Lactate Dehydrogenase Troponin T C-Reactive Protein Total Protein Albumin Prealbumin Triglycerides Cholesterol LDL Cholesterol Direct HDL Cholesterol Urine pH Urine WBC (Auto) Urine Creatinine Urine Total Protein Fluid Total Protein Vancomycin Trough Rheumatoid Factor Complement C4 Miscellaneous Test Crossmatch 10/19/16 10/19/16 10/19/16 04:00 04:00 05:25 WBC 17.4 H RBC 2.54 L Hgb 7.7 L Hct 23.6 L MCV MCH MCHC RDW 17.3 H Plt Count Lymph % (Auto) [place] % (Auto) Lymph # [place] # Baso # Seg Neutrophils % Seg Neuts % (Manual) Lymphocytes % (Manual) Monocytes % (Manual) Eosinophils % (Manual) Basophils % (Manual) Nucleated RBC % Seg Neutrophils # Seg Neutrophils # Man Lymphocytes # (Manual) Monocytes # (Manual) Eosinophils # (Manual) PT INR Fibrinogen dRVVT Confirm Interp Factor V Activity POC ABG pH POC ABG pCO2 POC ABG pO2 ABG pO2 ABG HCO3 ABG Hemoglobin Oxyhemoglobin Sodium Potassium Chloride Carbon Dioxide BUN 72 H Creatinine 2.1 H Glucose 116 H POC Glucose 119 H Lactic Acid Calcium Phosphorus Magnesium Direct Bilirubin AST ALT Alkaline Phosphatase Lactate Dehydrogenase Troponin T C-Reactive Protein Total Protein Albumin Prealbumin Triglycerides Cholesterol LDL Cholesterol Direct HDL Cholesterol Urine pH Urine WBC (Auto) Urine Creatinine Urine Total Protein Fluid Total Protein Vancomycin Trough Rheumatoid Factor Complement C4 Miscellaneous Test Crossmatch 10/19/16 10/19/16 10/20/16 11:46 23:59 06:00 WBC RBC Hgb Hct MCV MCH MCHC RDW Plt Count Lymph % (Auto) [place] % (Auto) Lymph # [place] # Baso # Seg Neutrophils % Seg Neuts % (Manual) Lymphocytes % (Manual) Monocytes % (Manual) Eosinophils % (Manual) Basophils % (Manual) Nucleated RBC % Seg Neutrophils # Seg Neutrophils # Man Lymphocytes # (Manual) Monocytes # (Manual) Eosinophils # (Manual) PT INR Fibrinogen dRVVT Confirm Interp Factor V Activity POC ABG pH POC ABG pCO2 POC ABG pO2 ABG pO2 ABG HCO3 ABG Hemoglobin Oxyhemoglobin Sodium Potassium Chloride Carbon Dioxide 17 L BUN 94 H Creatinine 2.7 H Glucose POC Glucose 116 H 117 H Lactic Acid Calcium Phosphorus Magnesium Direct Bilirubin AST ALT Alkaline Phosphatase Lactate Dehydrogenase Troponin T C-Reactive Protein Total Protein Albumin Prealbumin Triglycerides Cholesterol LDL Cholesterol Direct HDL Cholesterol Urine pH Urine WBC (Auto) Urine Creatinine Urine Total Protein Fluid Total Protein Vancomycin Trough Rheumatoid Factor Complement C4 Miscellaneous Test Crossmatch 10/20/16 10/20/16 10/20/16 06:00 11:49 16:00 WBC 19.7 H RBC 2.51 L Hgb 7.7 L Hct 23.5 L MCV MCH MCHC RDW 17.5 H Plt Count Lymph % (Auto) [place] % (Auto) Lymph # [place] # Baso # Seg Neutrophils % Seg Neuts % (Manual) Lymphocytes % (Manual) Monocytes % (Manual) Eosinophils % (Manual) Basophils % (Manual) Nucleated RBC % Seg Neutrophils # Seg Neutrophils # Man Lymphocytes # (Manual) Monocytes # (Manual) Eosinophils # (Manual) PT INR Fibrinogen dRVVT Confirm Interp Factor V Activity POC ABG pH POC ABG pCO2 POC ABG pO2 ABG pO2 ABG HCO3 ABG Hemoglobin Oxyhemoglobin Sodium Potassium Chloride Carbon Dioxide BUN Creatinine Glucose POC Glucose 117 H Lactic Acid Calcium Phosphorus Magnesium Direct Bilirubin AST ALT Alkaline Phosphatase Lactate Dehydrogenase Troponin T C-Reactive Protein Total Protein Albumin Prealbumin Triglycerides Cholesterol LDL Cholesterol Direct HDL Cholesterol Urine pH Urine WBC (Auto) Urine Creatinine Urine Total Protein Fluid Total Protein Vancomycin Trough Rheumatoid Factor Complement C4 Miscellaneous Test Flexitest 1 H Crossmatch 10/20/16 10/20/16 10/21/16 18:36 23:39 04:00 WBC RBC Hgb Hct MCV MCH MCHC RDW Plt Count Lymph % (Auto) [place] % (Auto) Lymph # [place] # Baso # Seg Neutrophils % Seg Neuts % (Manual) Lymphocytes % (Manual) Monocytes % (Manual) Eosinophils % (Manual) Basophils % (Manual) Nucleated RBC % Seg Neutrophils # Seg Neutrophils # Man Lymphocytes # (Manual) Monocytes # (Manual) Eosinophils # (Manual) PT INR Fibrinogen dRVVT Confirm Interp Factor V Activity POC ABG pH POC ABG pCO2 POC ABG pO2 ABG pO2 ABG HCO3 ABG Hemoglobin Oxyhemoglobin Sodium Potassium 5.4 H D Chloride Carbon Dioxide 15 L BUN 110 H Creatinine 3.0 H Glucose POC Glucose 127 H 114 H Lactic Acid Calcium Phosphorus Magnesium Direct Bilirubin AST ALT Alkaline Phosphatase Lactate Dehydrogenase Troponin T C-Reactive Protein Total Protein Albumin Prealbumin Triglycerides Cholesterol LDL Cholesterol Direct HDL Cholesterol Urine pH Urine WBC (Auto) Urine Creatinine Urine Total Protein Fluid Total Protein Vancomycin Trough Rheumatoid Factor Complement C4 Miscellaneous Test Crossmatch 10/21/16 10/21/16 10/22/16 05:54 23:46 05:18 WBC RBC Hgb Hct MCV MCH MCHC RDW Plt Count Lymph % (Auto) [place] % (Auto) Lymph # [place] # Baso # Seg Neutrophils % Seg Neuts % (Manual) Lymphocytes % (Manual) Monocytes % (Manual) Eosinophils % (Manual) Basophils % (Manual) Nucleated RBC % Seg Neutrophils # Seg Neutrophils # Man Lymphocytes # (Manual) Monocytes # (Manual) Eosinophils # (Manual) PT INR Fibrinogen dRVVT Confirm Interp Factor V Activity POC ABG pH POC ABG pCO2 POC ABG pO2 ABG pO2 ABG HCO3 ABG Hemoglobin Oxyhemoglobin Sodium Potassium Chloride Carbon Dioxide BUN Creatinine Glucose POC Glucose 119 H 108 H 109 H Lactic Acid Calcium Phosphorus Magnesium Direct Bilirubin AST ALT Alkaline Phosphatase Lactate Dehydrogenase Troponin T C-Reactive Protein Total Protein Albumin Prealbumin Triglycerides Cholesterol LDL Cholesterol Direct HDL Cholesterol Urine pH Urine WBC (Auto) Urine Creatinine Urine Total Protein Fluid Total Protein Vancomycin Trough Rheumatoid Factor Complement C4 Miscellaneous Test Crossmatch 10/22/16 10/22/16 10/22/16 06:40 06:40 06:40 WBC 14.0 H RBC 2.03 L Hgb 7.0 L Hct 20.5 L MCV 98 H MCH 34 H MCHC 35 H RDW 17.8 H Plt Count Lymph % (Auto) [place] % (Auto) 9.9 H Lymph # [place] # 1.4 H Baso # 0.2 H Seg Neutrophils % 72.0 H Seg Neuts % (Manual) Lymphocytes % (Manual) Monocytes % (Manual) Eosinophils % (Manual) Basophils % (Manual) Nucleated RBC % Seg Neutrophils # 10.0 H Seg Neutrophils # Man Lymphocytes # (Manual) Monocytes # (Manual) Eosinophils # (Manual) PT INR Fibrinogen dRVVT Confirm Interp Factor V Activity POC ABG pH POC ABG pCO2 POC ABG pO2 ABG pO2 ABG HCO3 ABG Hemoglobin Oxyhemoglobin Sodium 130 L D Potassium Chloride 92.4 L Carbon Dioxide 20 L BUN 50 H Creatinine 1.6 H Glucose 589 H* POC Glucose Lactic Acid Calcium 7.8 L D Phosphorus Magnesium 1.60 L Direct Bilirubin AST ALT Alkaline Phosphatase Lactate Dehydrogenase Troponin T C-Reactive Protein Total Protein Albumin Prealbumin Triglycerides Cholesterol LDL Cholesterol Direct HDL Cholesterol Urine pH Urine WBC (Auto) Urine Creatinine Urine Total Protein Fluid Total Protein Vancomycin Trough Rheumatoid Factor Complement C4 Miscellaneous Test Crossmatch 10/22/16 10/22/16 10/22/16 11:39 16:44 23:36 WBC RBC Hgb Hct MCV MCH MCHC RDW Plt Count Lymph % (Auto) [place] % (Auto) Lymph # [place] # Baso # Seg Neutrophils % Seg Neuts % (Manual) Lymphocytes % (Manual) Monocytes % (Manual) Eosinophils % (Manual) Basophils % (Manual) Nucleated RBC % Seg Neutrophils # Seg Neutrophils # Man Lymphocytes # (Manual) Monocytes # (Manual) Eosinophils # (Manual) PT INR Fibrinogen dRVVT Confirm Interp Factor V Activity POC ABG pH POC ABG pCO2 POC ABG pO2 ABG pO2 ABG HCO3 ABG Hemoglobin Oxyhemoglobin Sodium Potassium Chloride Carbon Dioxide BUN Creatinine Glucose POC Glucose 142 H 163 H 123 H Lactic Acid Calcium Phosphorus Magnesium Direct Bilirubin AST ALT Alkaline Phosphatase Lactate Dehydrogenase Troponin T C-Reactive Protein Total Protein Albumin Prealbumin Triglycerides Cholesterol LDL Cholesterol Direct HDL Cholesterol Urine pH Urine WBC (Auto) Urine Creatinine Urine Total Protein Fluid Total Protein Vancomycin Trough Rheumatoid Factor Complement C4 Miscellaneous Test Crossmatch 10/23/16 10/23/16 10/23/16 04:58 06:00 12:12 WBC RBC Hgb Hct MCV MCH MCHC RDW Plt Count Lymph % (Auto) [place] % (Auto) Lymph # [place] # Baso # Seg Neutrophils % Seg Neuts % (Manual) Lymphocytes % (Manual) Monocytes % (Manual) Eosinophils % (Manual) Basophils % (Manual) Nucleated RBC % Seg Neutrophils # Seg Neutrophils # Man Lymphocytes # (Manual) Monocytes # (Manual) Eosinophils # (Manual) PT INR Fibrinogen dRVVT Confirm Interp Factor V Activity POC ABG pH POC ABG pCO2 POC ABG pO2 ABG pO2 ABG HCO3 ABG Hemoglobin Oxyhemoglobin Sodium 133 L Potassium 3.5 L Chloride 96.1 L Carbon Dioxide 18 L BUN 76 H Creatinine 2.1 H Glucose POC Glucose 133 H 138 H Lactic Acid Calcium 8.3 L Phosphorus Magnesium Direct Bilirubin AST ALT Alkaline Phosphatase Lactate Dehydrogenase Troponin T C-Reactive Protein Total Protein Albumin Prealbumin Triglycerides Cholesterol LDL Cholesterol Direct HDL Cholesterol Urine pH Urine WBC (Auto) Urine Creatinine Urine Total Protein Fluid Total Protein Vancomycin Trough Rheumatoid Factor Complement C4 Miscellaneous Test Crossmatch 10/23/16 10/23/16 10/24/16 16:53 23:37 04:00 WBC RBC Hgb Hct MCV MCH MCHC RDW Plt Count Lymph % (Auto) [place] % (Auto) Lymph # [place] # Baso # Seg Neutrophils % Seg Neuts % (Manual) Lymphocytes % (Manual) Monocytes % (Manual) Eosinophils % (Manual) Basophils % (Manual) Nucleated RBC % Seg Neutrophils # Seg Neutrophils # Man Lymphocytes # (Manual) Monocytes # (Manual) Eosinophils # (Manual) PT INR Fibrinogen dRVVT Confirm Interp Factor V Activity POC ABG pH POC ABG pCO2 POC ABG pO2 ABG pO2 ABG HCO3 ABG Hemoglobin Oxyhemoglobin Sodium 131 L Potassium Chloride 94.5 L Carbon Dioxide 19 L BUN 97 H Creatinine 2.6 H Glucose 110 H POC Glucose 125 H 123 H Lactic Acid Calcium 8.3 L Phosphorus Magnesium Direct Bilirubin AST ALT Alkaline Phosphatase Lactate Dehydrogenase Troponin T C-Reactive Protein Total Protein Albumin Prealbumin Triglycerides Cholesterol LDL Cholesterol Direct HDL Cholesterol Urine pH Urine WBC (Auto) Urine Creatinine Urine Total Protein Fluid Total Protein Vancomycin Trough Rheumatoid Factor Complement C4 Miscellaneous Test Crossmatch 10/24/16 10/24/16 10/24/16 07:49 11:39 17:52 WBC RBC Hgb 6.0 L Hct 19.7 L* MCV MCH MCHC RDW Plt Count Lymph % (Auto) [place] % (Auto) Lymph # [place] # Baso # Seg Neutrophils % Seg Neuts % (Manual) Lymphocytes % (Manual) Monocytes % (Manual) Eosinophils % (Manual) Basophils % (Manual) Nucleated RBC % Seg Neutrophils # Seg Neutrophils # Man Lymphocytes # (Manual) Monocytes # (Manual) Eosinophils # (Manual) PT INR Fibrinogen dRVVT Confirm Interp Factor V Activity POC ABG pH POC ABG pCO2 POC ABG pO2 ABG pO2 ABG HCO3 ABG Hemoglobin Oxyhemoglobin Sodium Potassium Chloride Carbon Dioxide BUN Creatinine Glucose POC Glucose 106 H 158 H Lactic Acid Calcium Phosphorus Magnesium Direct Bilirubin AST ALT Alkaline Phosphatase Lactate Dehydrogenase Troponin T C-Reactive Protein Total Protein Albumin Prealbumin Triglycerides Cholesterol LDL Cholesterol Direct HDL Cholesterol Urine pH Urine WBC (Auto) Urine Creatinine Urine Total Protein Fluid Total Protein Vancomycin Trough Rheumatoid Factor Complement C4 Miscellaneous Test Crossmatch 10/24/16 10/24/16 10/24/16 20:00 22:27 Unknown WBC RBC Hgb 9.4 L D Hct 27.5 L D MCV MCH MCHC RDW Plt Count Lymph % (Auto) [place] % (Auto) Lymph # [place] # Baso # Seg Neutrophils % Seg Neuts % (Manual) Lymphocytes % (Manual) Monocytes % (Manual) Eosinophils % (Manual) Basophils % (Manual) Nucleated RBC % Seg Neutrophils # Seg Neutrophils # Man Lymphocytes # (Manual) Monocytes # (Manual) Eosinophils # (Manual) PT INR Fibrinogen dRVVT Confirm Interp Factor V Activity POC ABG pH POC ABG pCO2 POC ABG pO2 ABG pO2 ABG HCO3 ABG Hemoglobin Oxyhemoglobin Sodium Potassium Chloride Carbon Dioxide BUN Creatinine Glucose POC Glucose 125 H Lactic Acid Calcium Phosphorus Magnesium Direct Bilirubin AST ALT Alkaline Phosphatase Lactate Dehydrogenase Troponin T C-Reactive Protein Total Protein Albumin Prealbumin Triglycerides Cholesterol LDL Cholesterol Direct HDL Cholesterol Urine pH Urine WBC (Auto) Urine Creatinine Urine Total Protein Fluid Total Protein Vancomycin Trough Rheumatoid Factor Complement C4 Miscellaneous Test Crossmatch See Detail 10/25/16 10/25/16 10/25/16 04:00 04:00 04:00 WBC 14.2 H RBC 2.98 L Hgb 9.0 L Hct 26.2 L MCV MCH MCHC RDW 16.6 H Plt Count Lymph % (Auto) [place] % (Auto) 10.7 H Lymph # [place] # 1.5 H Baso # Seg Neutrophils % 73.6 H Seg Neuts % (Manual) Lymphocytes % (Manual) Monocytes % (Manual) Eosinophils % (Manual) Basophils % (Manual) Nucleated RBC % Seg Neutrophils # 10.5 H Seg Neutrophils # Man Lymphocytes # (Manual) Monocytes # (Manual) Eosinophils # (Manual) PT INR Fibrinogen dRVVT Confirm Interp Factor V Activity POC ABG pH POC ABG pCO2 POC ABG pO2 ABG pO2 ABG HCO3 ABG Hemoglobin Oxyhemoglobin Sodium 132 L Potassium Chloride 94.7 L Carbon Dioxide BUN 51 H Creatinine 1.6 H Glucose 130 H POC Glucose Lactic Acid Calcium 8.3 L Phosphorus 1.60 L D Magnesium Direct Bilirubin AST ALT Alkaline Phosphatase Lactate Dehydrogenase Troponin T C-Reactive Protein Total Protein Albumin Prealbumin Triglycerides Cholesterol LDL Cholesterol Direct HDL Cholesterol Urine pH Urine WBC (Auto) Urine Creatinine Urine Total Protein Fluid Total Protein Vancomycin Trough Rheumatoid Factor Complement C4 Miscellaneous Test Crossmatch 10/25/16 10/25/16 10/25/16 04:32 11:48 17:22 WBC RBC Hgb Hct MCV MCH MCHC RDW Plt Count Lymph % (Auto) [place] % (Auto) Lymph # [place] # Baso # Seg Neutrophils % Seg Neuts % (Manual) Lymphocytes % (Manual) Monocytes % (Manual) Eosinophils % (Manual) Basophils % (Manual) Nucleated RBC % Seg Neutrophils # Seg Neutrophils # Man Lymphocytes # (Manual) Monocytes # (Manual) Eosinophils # (Manual) PT INR Fibrinogen dRVVT Confirm Interp Factor V Activity POC ABG pH POC ABG pCO2 POC ABG pO2 ABG pO2 ABG HCO3 ABG Hemoglobin Oxyhemoglobin Sodium Potassium Chloride Carbon Dioxide BUN Creatinine Glucose POC Glucose 124 H 171 H 120 H Lactic Acid Calcium Phosphorus Magnesium Direct Bilirubin AST ALT Alkaline Phosphatase Lactate Dehydrogenase Troponin T C-Reactive Protein Total Protein Albumin Prealbumin Triglycerides Cholesterol LDL Cholesterol Direct HDL Cholesterol Urine pH Urine WBC (Auto) Urine Creatinine Urine Total Protein Fluid Total Protein Vancomycin Trough Rheumatoid Factor Complement C4 Miscellaneous Test Crossmatch 10/26/16 10/26/16 10/26/16 04:54 07:06 07:06 WBC 16.9 H RBC 3.06 L Hgb 9.1 L Hct 26.9 L MCV MCH MCHC RDW 16.9 H Plt Count Lymph % (Auto) [place] % (Auto) Lymph # [place] # Baso # Seg Neutrophils % Seg Neuts % (Manual) 71.0 H Lymphocytes % (Manual) 5.0 L Monocytes % (Manual) 12.0 H Eosinophils % (Manual) Basophils % (Manual) Nucleated RBC % Seg Neutrophils # Seg Neutrophils # Man 12.0 H Lymphocytes # (Manual) 0.8 L Monocytes # (Manual) 2.0 H Eosinophils # (Manual) PT INR Fibrinogen dRVVT Confirm Interp Factor V Activity POC ABG pH POC ABG pCO2 POC ABG pO2 ABG pO2 ABG HCO3 ABG Hemoglobin Oxyhemoglobin Sodium 135 L Potassium Chloride 97.1 L Carbon Dioxide BUN 73 H Creatinine 2.2 H Glucose 117 H POC Glucose 123 H Lactic Acid Calcium Phosphorus 1.70 L Magnesium Direct Bilirubin AST ALT Alkaline Phosphatase Lactate Dehydrogenase Troponin T C-Reactive Protein Total Protein Albumin Prealbumin Triglycerides Cholesterol LDL Cholesterol Direct HDL Cholesterol Urine pH Urine WBC (Auto) Urine Creatinine Urine Total Protein Fluid Total Protein Vancomycin Trough Rheumatoid Factor Complement C4 Miscellaneous Test Crossmatch 10/26/16 10/26/16 10/26/16 12:12 17:29 23:42 WBC RBC Hgb Hct MCV MCH MCHC RDW Plt Count Lymph % (Auto) [place] % (Auto) Lymph # [place] # Baso # Seg Neutrophils % Seg Neuts % (Manual) Lymphocytes % (Manual) Monocytes % (Manual) Eosinophils % (Manual) Basophils % (Manual) Nucleated RBC % Seg Neutrophils # Seg Neutrophils # Man Lymphocytes # (Manual) Monocytes # (Manual) Eosinophils # (Manual) PT INR Fibrinogen dRVVT Confirm Interp Factor V Activity POC ABG pH POC ABG pCO2 POC ABG pO2 ABG pO2 ABG HCO3 ABG Hemoglobin Oxyhemoglobin Sodium Potassium Chloride Carbon Dioxide BUN Creatinine Glucose POC Glucose 126 H 161 H 118 H Lactic Acid Calcium Phosphorus Magnesium Direct Bilirubin AST ALT Alkaline Phosphatase Lactate Dehydrogenase Troponin T C-Reactive Protein Total Protein Albumin Prealbumin Triglycerides Cholesterol LDL Cholesterol Direct HDL Cholesterol Urine pH Urine WBC (Auto) Urine Creatinine Urine Total Protein Fluid Total Protein Vancomycin Trough Rheumatoid Factor Complement C4 Miscellaneous Test Crossmatch 10/27/16 10/27/16 10/27/16 05:03 06:30 06:30 WBC 13.9 H RBC 3.09 L Hgb 9.2 L Hct 27.5 L MCV MCH MCHC RDW 17.0 H Plt Count Lymph % (Auto) [place] % (Auto) Lymph # [place] # Baso # Seg Neutrophils % Seg Neuts % (Manual) 78.0 H Lymphocytes % (Manual) Monocytes % (Manual) Eosinophils % (Manual) Basophils % (Manual) Nucleated RBC % 2.0 H Seg Neutrophils # Seg Neutrophils # Man 10.8 H Lymphocytes # (Manual) Monocytes # (Manual) 1.0 H Eosinophils # (Manual) PT INR Fibrinogen dRVVT Confirm Interp Factor V Activity POC ABG pH POC ABG pCO2 POC ABG pO2 ABG pO2 ABG HCO3 ABG Hemoglobin Oxyhemoglobin Sodium Potassium Chloride Carbon Dioxide BUN 40 H Creatinine 1.5 H Glucose 135 H POC Glucose 107 H Lactic Acid Calcium 8.3 L Phosphorus 1.30 L D Magnesium Direct Bilirubin AST ALT Alkaline Phosphatase Lactate Dehydrogenase Troponin T C-Reactive Protein Total Protein Albumin Prealbumin Triglycerides Cholesterol LDL Cholesterol Direct HDL Cholesterol Urine pH Urine WBC (Auto) Urine Creatinine Urine Total Protein Fluid Total Protein Vancomycin Trough Rheumatoid Factor Complement C4 Miscellaneous Test Crossmatch 10/27/16 10/27/16 10/27/16 13:27 18:07 23:40 WBC RBC Hgb Hct MCV MCH MCHC RDW Plt Count Lymph % (Auto) [place] % (Auto) Lymph # [place] # Baso # Seg Neutrophils % Seg Neuts % (Manual) Lymphocytes % (Manual) Monocytes % (Manual) Eosinophils % (Manual) Basophils % (Manual) Nucleated RBC % Seg Neutrophils # Seg Neutrophils # Man Lymphocytes # (Manual) Monocytes # (Manual) Eosinophils # (Manual) PT INR Fibrinogen dRVVT Confirm Interp Factor V Activity POC ABG pH POC ABG pCO2 POC ABG pO2 ABG pO2 ABG HCO3 ABG Hemoglobin Oxyhemoglobin Sodium Potassium Chloride Carbon Dioxide BUN Creatinine Glucose POC Glucose 117 H 121 H 118 H Lactic Acid Calcium Phosphorus Magnesium Direct Bilirubin AST ALT Alkaline Phosphatase Lactate Dehydrogenase Troponin T C-Reactive Protein Total Protein Albumin Prealbumin Triglycerides Cholesterol LDL Cholesterol Direct HDL Cholesterol Urine pH Urine WBC (Auto) Urine Creatinine Urine Total Protein Fluid Total Protein Vancomycin Trough Rheumatoid Factor Complement C4 Miscellaneous Test Crossmatch 10/28/16 10/28/16 10/28/16 05:48 06:45 06:45 WBC 14.7 H RBC 3.05 L Hgb 9.0 L Hct 26.9 L MCV MCH MCHC RDW 16.8 H Plt Count Lymph % (Auto) 8.2 L [place] % (Auto) 8.4 H Lymph # [place] # 1.2 H Baso # Seg Neutrophils % 81.9 H Seg Neuts % (Manual) Lymphocytes % (Manual) Monocytes % (Manual) Eosinophils % (Manual) Basophils % (Manual) Nucleated RBC % Seg Neutrophils # 12.1 H Seg Neutrophils # Man Lymphocytes # (Manual) Monocytes # (Manual) Eosinophils # (Manual) PT INR Fibrinogen dRVVT Confirm Interp Factor V Activity POC ABG pH POC ABG pCO2 POC ABG pO2 ABG pO2 ABG HCO3 ABG Hemoglobin Oxyhemoglobin Sodium Potassium Chloride Carbon Dioxide BUN 60 H Creatinine 1.9 H Glucose 120 H POC Glucose 114 H Lactic Acid Calcium Phosphorus Magnesium Direct Bilirubin AST ALT Alkaline Phosphatase Lactate Dehydrogenase Troponin T C-Reactive Protein Total Protein Albumin Prealbumin Triglycerides Cholesterol LDL Cholesterol Direct HDL Cholesterol Urine pH Urine WBC (Auto) Urine Creatinine Urine Total Protein Fluid Total Protein Vancomycin Trough Rheumatoid Factor Complement C4 Miscellaneous Test Crossmatch 10/28/16 10/28/16 10/29/16 17:08 23:50 05:10 WBC RBC Hgb Hct MCV MCH MCHC RDW Plt Count Lymph % (Auto) [place] % (Auto) Lymph # [place] # Baso # Seg Neutrophils % Seg Neuts % (Manual) Lymphocytes % (Manual) Monocytes % (Manual) Eosinophils % (Manual) Basophils % (Manual) Nucleated RBC % Seg Neutrophils # Seg Neutrophils # Man Lymphocytes # (Manual) Monocytes # (Manual) Eosinophils # (Manual) PT INR Fibrinogen dRVVT Confirm Interp Factor V Activity POC ABG pH POC ABG pCO2 POC ABG pO2 ABG pO2 ABG HCO3 ABG Hemoglobin Oxyhemoglobin Sodium Potassium Chloride Carbon Dioxide BUN Creatinine Glucose POC Glucose 109 H 110 H 124 H Lactic Acid Calcium Phosphorus Magnesium Direct Bilirubin AST ALT Alkaline Phosphatase Lactate Dehydrogenase Troponin T C-Reactive Protein Total Protein Albumin Prealbumin Triglycerides Cholesterol LDL Cholesterol Direct HDL Cholesterol Urine pH Urine WBC (Auto) Urine Creatinine Urine Total Protein Fluid Total Protein Vancomycin Trough Rheumatoid Factor Complement C4 Miscellaneous Test Crossmatch 10/29/16 10/29/16 10/29/16 07:45 07:45 12:19 WBC 14.7 H RBC 3.15 L Hgb 9.3 L Hct 28.9 L MCV MCH MCHC RDW 17.0 H Plt Count Lymph % (Auto) 11.9 L [place] % (Auto) 8.6 H Lymph # [place] # 1.3 H Baso # Seg Neutrophils % 78.1 H Seg Neuts % (Manual) Lymphocytes % (Manual) Monocytes % (Manual) Eosinophils % (Manual) Basophils % (Manual) Nucleated RBC % Seg Neutrophils # 11.4 H Seg Neutrophils # Man Lymphocytes # (Manual) Monocytes # (Manual) Eosinophils # (Manual) PT INR Fibrinogen dRVVT Confirm Interp Factor V Activity POC ABG pH POC ABG pCO2 POC ABG pO2 ABG pO2 ABG HCO3 ABG Hemoglobin Oxyhemoglobin Sodium Potassium 5.1 H Chloride Carbon Dioxide 19 L BUN 78 H Creatinine 2.2 H Glucose 116 H POC Glucose 118 H Lactic Acid Calcium Phosphorus Magnesium Direct Bilirubin AST ALT Alkaline Phosphatase Lactate Dehydrogenase Troponin T C-Reactive Protein Total Protein Albumin Prealbumin Triglycerides Cholesterol LDL Cholesterol Direct HDL Cholesterol Urine pH Urine WBC (Auto) Urine Creatinine Urine Total Protein Fluid Total Protein Vancomycin Trough Rheumatoid Factor Complement C4 Miscellaneous Test Crossmatch 10/29/16 10/30/16 10/30/16 17:49 01:52 03:28 WBC RBC Hgb Hct MCV MCH MCHC RDW Plt Count Lymph % (Auto) [place] % (Auto) Lymph # [place] # Baso # Seg Neutrophils % Seg Neuts % (Manual) Lymphocytes % (Manual) Monocytes % (Manual) Eosinophils % (Manual) Basophils % (Manual) Nucleated RBC % Seg Neutrophils # Seg Neutrophils # Man Lymphocytes # (Manual) Monocytes # (Manual) Eosinophils # (Manual) PT INR Fibrinogen dRVVT Confirm Interp Factor V Activity POC ABG pH POC ABG pCO2 POC ABG pO2 ABG pO2 ABG HCO3 ABG Hemoglobin Oxyhemoglobin Sodium Potassium 5.4 H Chloride 97.5 L Carbon Dioxide 19 L BUN 90 H Creatinine 2.5 H Glucose POC Glucose 120 H 129 H Lactic Acid Calcium Phosphorus 5.20 H Magnesium Direct Bilirubin AST ALT Alkaline Phosphatase Lactate Dehydrogenase Troponin T C-Reactive Protein Total Protein Albumin Prealbumin Triglycerides Cholesterol LDL Cholesterol Direct HDL Cholesterol Urine pH Urine WBC (Auto) Urine Creatinine Urine Total Protein Fluid Total Protein Vancomycin Trough Rheumatoid Factor Complement C4 Miscellaneous Test Crossmatch 10/30/16 10/30/16 10/30/16 03:28 08:19 08:19 WBC 11.6 H 15.9 H RBC 2.75 L 2.82 L Hgb 7.9 L 8.3 L Hct 24.2 L 25.2 L MCV MCH MCHC RDW 16.7 H 17.2 H Plt Count Lymph % (Auto) [place] % (Auto) 9.8 H Lymph # [place] # 1.1 H Baso # Seg Neutrophils % 74.2 H Seg Neuts % (Manual) Lymphocytes % (Manual) Monocytes % (Manual) Eosinophils % (Manual) Basophils % (Manual) Nucleated RBC % Seg Neutrophils # 8.6 H Seg Neutrophils # Man Lymphocytes # (Manual) Monocytes # (Manual) Eosinophils # (Manual) PT INR Fibrinogen dRVVT Confirm Interp Factor V Activity POC ABG pH POC ABG pCO2 POC ABG pO2 ABG pO2 ABG HCO3 ABG Hemoglobin Oxyhemoglobin Sodium Potassium 5.3 H Chloride 97.4 L Carbon Dioxide 19 L BUN 93 H Creatinine 2.6 H Glucose POC Glucose Lactic Acid Calcium Phosphorus Magnesium Direct Bilirubin AST ALT Alkaline Phosphatase Lactate Dehydrogenase Troponin T C-Reactive Protein Total Protein Albumin Prealbumin Triglycerides Cholesterol LDL Cholesterol Direct HDL Cholesterol Urine pH Urine WBC (Auto) Urine Creatinine Urine Total Protein Fluid Total Protein Vancomycin Trough Rheumatoid Factor Complement C4 Miscellaneous Test Crossmatch 10/30/16 10/30/16 10/31/16 17:11 23:56 00:40 WBC RBC Hgb Hct MCV MCH MCHC RDW Plt Count Lymph % (Auto) [place] % (Auto) Lymph # [place] # Baso # Seg Neutrophils % Seg Neuts % (Manual) Lymphocytes % (Manual) Monocytes % (Manual) Eosinophils % (Manual) Basophils % (Manual) Nucleated RBC % Seg Neutrophils # Seg Neutrophils # Man Lymphocytes # (Manual) Monocytes # (Manual) Eosinophils # (Manual) PT INR Fibrinogen dRVVT Confirm Interp Factor V Activity POC ABG pH POC ABG pCO2 POC ABG pO2 ABG pO2 ABG HCO3 ABG Hemoglobin Oxyhemoglobin Sodium Potassium Chloride Carbon Dioxide BUN Creatinine Glucose POC Glucose 106 H 117 H 120 H Lactic Acid Calcium Phosphorus Magnesium Direct Bilirubin AST ALT Alkaline Phosphatase Lactate Dehydrogenase Troponin T C-Reactive Protein Total Protein Albumin Prealbumin Triglycerides Cholesterol LDL Cholesterol Direct HDL Cholesterol Urine pH Urine WBC (Auto) Urine Creatinine Urine Total Protein Fluid Total Protein Vancomycin Trough Rheumatoid Factor Complement C4 Miscellaneous Test Crossmatch 10/31/16 10/31/16 10/31/16 05:43 07:15 07:15 WBC 12.1 H RBC 2.63 L Hgb 7.7 L Hct 23.3 L MCV MCH MCHC RDW 16.7 H Plt Count Lymph % (Auto) 11.7 L [place] % (Auto) 7.7 H Lymph # [place] # 0.9 H Baso # Seg Neutrophils % 78.0 H Seg Neuts % (Manual) Lymphocytes % (Manual) Monocytes % (Manual) Eosinophils % (Manual) Basophils % (Manual) Nucleated RBC % Seg Neutrophils # 9.4 H Seg Neutrophils # Man Lymphocytes # (Manual) Monocytes # (Manual) Eosinophils # (Manual) PT INR Fibrinogen dRVVT Confirm Interp Factor V Activity POC ABG pH POC ABG pCO2 POC ABG pO2 ABG pO2 ABG HCO3 ABG Hemoglobin Oxyhemoglobin Sodium Potassium Chloride 96.4 L Carbon Dioxide 21 L BUN 99 H Creatinine 2.6 H Glucose 144 H POC Glucose 125 H Lactic Acid Calcium Phosphorus 4.80 H Magnesium Direct Bilirubin AST ALT Alkaline Phosphatase Lactate Dehydrogenase Troponin T C-Reactive Protein Total Protein Albumin Prealbumin Triglycerides Cholesterol LDL Cholesterol Direct HDL Cholesterol Urine pH Urine WBC (Auto) Urine Creatinine Urine Total Protein Fluid Total Protein Vancomycin Trough Rheumatoid Factor Complement C4 Miscellaneous Test Crossmatch 10/31/16 10/31/16 11/01/16 11:46 18:34 00:20 WBC RBC Hgb Hct MCV MCH MCHC RDW Plt Count Lymph % (Auto) [place] % (Auto) Lymph # [place] # Baso # Seg Neutrophils % Seg Neuts % (Manual) Lymphocytes % (Manual) Monocytes % (Manual) Eosinophils % (Manual) Basophils % (Manual) Nucleated RBC % Seg Neutrophils # Seg Neutrophils # Man Lymphocytes # (Manual) Monocytes # (Manual) Eosinophils # (Manual) PT INR Fibrinogen dRVVT Confirm Interp Factor V Activity POC ABG pH POC ABG pCO2 POC ABG pO2 ABG pO2 ABG HCO3 ABG Hemoglobin Oxyhemoglobin Sodium Potassium Chloride Carbon Dioxide BUN Creatinine Glucose POC Glucose 159 H 140 H 132 H Lactic Acid Calcium Phosphorus Magnesium Direct Bilirubin AST ALT Alkaline Phosphatase Lactate Dehydrogenase Troponin T C-Reactive Protein Total Protein Albumin Prealbumin Triglycerides Cholesterol LDL Cholesterol Direct HDL Cholesterol Urine pH Urine WBC (Auto) Urine Creatinine Urine Total Protein Fluid Total Protein Vancomycin Trough Rheumatoid Factor Complement C4 Miscellaneous Test Crossmatch 11/01/16 11/01/16 11/01/16 04:55 04:55 06:11 WBC 11.2 H RBC 2.68 L Hgb 7.5 L Hct 23.7 L MCV MCH MCHC RDW 16.1 H Plt Count Lymph % (Auto) [place] % (Auto) 9.8 H Lymph # [place] # 1.1 H Baso # Seg Neutrophils % 70.8 H Seg Neuts % (Manual) Lymphocytes % (Manual) Monocytes % (Manual) Eosinophils % (Manual) Basophils % (Manual) Nucleated RBC % Seg Neutrophils # 7.9 H Seg Neutrophils # Man Lymphocytes # (Manual) Monocytes # (Manual) Eosinophils # (Manual) PT INR Fibrinogen dRVVT Confirm Interp Factor V Activity POC ABG pH POC ABG pCO2 POC ABG pO2 ABG pO2 ABG HCO3 ABG Hemoglobin Oxyhemoglobin Sodium Potassium 3.3 L D Chloride Carbon Dioxide BUN 61 H Creatinine 1.9 H Glucose 114 H POC Glucose 115 H Lactic Acid Calcium Phosphorus 1.80 L D Magnesium Direct Bilirubin AST ALT Alkaline Phosphatase Lactate Dehydrogenase Troponin T C-Reactive Protein Total Protein Albumin Prealbumin Triglycerides Cholesterol LDL Cholesterol Direct HDL Cholesterol Urine pH Urine WBC (Auto) Urine Creatinine Urine Total Protein Fluid Total Protein Vancomycin Trough Rheumatoid Factor Complement C4 Miscellaneous Test Crossmatch 11/01/16 11/01/16 11/01/16 12:29 18:23 23:58 WBC RBC Hgb Hct MCV MCH MCHC RDW Plt Count Lymph % (Auto) [place] % (Auto) Lymph # [place] # [place] # Seg Neutrophils % Seg Neuts % (Manual) Lymphocytes % (Manual) Monocytes % (Manual) Eosinophils % (Manual) Basophils % (Manual) Nucleated RBC % Seg Neutrophils # Seg Neutrophils # Man Lymphocytes # (Manual) Monocytes # (Manual) Eosinophils # (Manual) PT INR Fibrinogen dRVVT Confirm Interp Factor V Activity POC ABG pH POC ABG pCO2 POC ABG pO2 ABG pO2 ABG HCO3 ABG Hemoglobin Oxyhemoglobin Sodium Potassium Chloride Carbon Dioxide BUN Creatinine Glucose POC Glucose 142 H 143 H 128 H Lactic Acid Calcium Phosphorus Magnesium Direct Bilirubin AST ALT Alkaline Phosphatase Lactate Dehydrogenase Troponin T C-Reactive Protein Total Protein Albumin Prealbumin Triglycerides Cholesterol LDL Cholesterol Direct HDL Cholesterol Urine pH Urine WBC (Auto) Urine Creatinine Urine Total Protein Fluid Total Protein Vancomycin Trough Rheumatoid Factor Complement C4 Miscellaneous Test Crossmatch 11/02/16 11/02/16 11/02/16 04:16 05:29 11:58 WBC RBC Hgb Hct MCV MCH MCHC RDW Plt Count Lymph % (Auto) [place] % (Auto) Lymph # [place] # [place] # Seg Neutrophils % Seg Neuts % (Manual) Lymphocytes % (Manual) Monocytes % (Manual) Eosinophils % (Manual) Basophils % (Manual) Nucleated RBC % Seg Neutrophils # Seg Neutrophils # Man Lymphocytes # (Manual) Monocytes # (Manual) Eosinophils # (Manual) PT INR Fibrinogen dRVVT Confirm Interp Factor V Activity POC ABG pH POC ABG pCO2 POC ABG pO2 ABG pO2 ABG HCO3 ABG Hemoglobin Oxyhemoglobin Sodium Potassium 3.1 L Chloride Carbon Dioxide BUN 73 H Creatinine 2.3 H Glucose 112 H POC Glucose 135 H 149 H Lactic Acid Calcium Phosphorus Magnesium Direct Bilirubin AST ALT Alkaline Phosphatase Lactate Dehydrogenase Troponin T C-Reactive Protein Total Protein Albumin Prealbumin Triglycerides Cholesterol LDL Cholesterol Direct HDL Cholesterol Urine pH Urine WBC (Auto) Urine Creatinine Urine Total Protein Fluid Total Protein Vancomycin Trough Rheumatoid Factor Complement C4 Miscellaneous Test Crossmatch 11/02/16 11/02/16 11/03/16 17:42 22:54 06:00 WBC RBC Hgb Hct MCV MCH MCHC RDW Plt Count Lymph % (Auto) [place] % (Auto) Lymph # [place] # Baso # Seg Neutrophils % Seg Neuts % (Manual) Lymphocytes % (Manual) Monocytes % (Manual) Eosinophils % (Manual) Basophils % (Manual) Nucleated RBC % Seg Neutrophils # Seg Neutrophils # Man Lymphocytes # (Manual) Monocytes # (Manual) Eosinophils # (Manual) PT INR Fibrinogen dRVVT Confirm Interp Factor V Activity POC ABG pH POC ABG pCO2 POC ABG pO2 ABG pO2 ABG HCO3 ABG Hemoglobin Oxyhemoglobin Sodium Potassium Chloride 96.7 L Carbon Dioxide BUN 41 H Creatinine 1.5 H Glucose 145 H POC Glucose 182 H 115 H Lactic Acid Calcium Phosphorus 1.60 L D Magnesium 1.50 L Direct Bilirubin AST ALT Alkaline Phosphatase Lactate Dehydrogenase Troponin T C-Reactive Protein Total Protein Albumin Prealbumin Triglycerides Cholesterol LDL Cholesterol Direct HDL Cholesterol Urine pH Urine WBC (Auto) Urine Creatinine Urine Total Protein Fluid Total Protein Vancomycin Trough Rheumatoid Factor Complement C4 Miscellaneous Test Crossmatch 11/03/16 11/03/16 11/03/16 11:53 17:45 23:37 WBC RBC Hgb Hct MCV MCH MCHC RDW Plt Count Lymph % (Auto) [place] % (Auto) Lymph # [place] # Baso # Seg Neutrophils % Seg Neuts % (Manual) Lymphocytes % (Manual) Monocytes % (Manual) Eosinophils % (Manual) Basophils % (Manual) Nucleated RBC % Seg Neutrophils # Seg Neutrophils # Man Lymphocytes # (Manual) Monocytes # (Manual) Eosinophils # (Manual) PT INR Fibrinogen dRVVT Confirm Interp Factor V Activity POC ABG pH POC ABG pCO2 POC ABG pO2 ABG pO2 ABG HCO3 ABG Hemoglobin Oxyhemoglobin Sodium Potassium Chloride Carbon Dioxide BUN Creatinine Glucose POC Glucose 131 H 134 H 113 H Lactic Acid Calcium Phosphorus Magnesium Direct Bilirubin AST ALT Alkaline Phosphatase Lactate Dehydrogenase Troponin T C-Reactive Protein Total Protein Albumin Prealbumin Triglycerides Cholesterol LDL Cholesterol Direct HDL Cholesterol Urine pH Urine WBC (Auto) Urine Creatinine Urine Total Protein Fluid Total Protein Vancomycin Trough Rheumatoid Factor Complement C4 Miscellaneous Test Crossmatch 11/04/16 11/04/16 11/04/16 05:41 06:00 12:10 WBC RBC Hgb Hct MCV MCH MCHC RDW Plt Count Lymph % (Auto) [place] % (Auto) Lymph # [place] # Baso # Seg Neutrophils % Seg Neuts % (Manual) Lymphocytes % (Manual) Monocytes % (Manual) Eosinophils % (Manual) Basophils % (Manual) Nucleated RBC % Seg Neutrophils # Seg Neutrophils # Man Lymphocytes # (Manual) Monocytes # (Manual) Eosinophils # (Manual) PT INR Fibrinogen dRVVT Confirm Interp Factor V Activity POC ABG pH POC ABG pCO2 POC ABG pO2 ABG pO2 ABG HCO3 ABG Hemoglobin Oxyhemoglobin Sodium Potassium Chloride 96.7 L Carbon Dioxide BUN 52 H Creatinine 1.9 H Glucose 126 H POC Glucose 137 H 191 H Lactic Acid Calcium Phosphorus Magnesium Direct Bilirubin AST ALT Alkaline Phosphatase Lactate Dehydrogenase Troponin T C-Reactive Protein Total Protein Albumin Prealbumin Triglycerides Cholesterol LDL Cholesterol Direct HDL Cholesterol Urine pH Urine WBC (Auto) Urine Creatinine Urine Total Protein Fluid Total Protein Vancomycin Trough Rheumatoid Factor Complement C4 Miscellaneous Test Crossmatch 11/04/16 11/05/16 11/05/16 22:57 03:10 05:10 WBC RBC Hgb Hct MCV MCH MCHC RDW Plt Count Lymph % (Auto) [place] % (Auto) Lymph # [place] # Baso # Seg Neutrophils % Seg Neuts % (Manual) Lymphocytes % (Manual) Monocytes % (Manual) Eosinophils % (Manual) Basophils % (Manual) Nucleated RBC % Seg Neutrophils # Seg Neutrophils # Man Lymphocytes # (Manual) Monocytes # (Manual) Eosinophils # (Manual) PT INR Fibrinogen dRVVT Confirm Interp Factor V Activity POC ABG pH POC ABG pCO2 POC ABG pO2 ABG pO2 ABG HCO3 ABG Hemoglobin Oxyhemoglobin Sodium 136 L Potassium Chloride 97.2 L Carbon Dioxide BUN 32 H Creatinine 1.3 H Glucose 123 H POC Glucose 125 H 108 H Lactic Acid Calcium 7.8 L Phosphorus Magnesium Direct Bilirubin AST ALT Alkaline Phosphatase Lactate Dehydrogenase Troponin T C-Reactive Protein Total Protein Albumin Prealbumin Triglycerides Cholesterol LDL Cholesterol Direct HDL Cholesterol Urine pH Urine WBC (Auto) Urine Creatinine Urine Total Protein Fluid Total Protein Vancomycin Trough Rheumatoid Factor Complement C4 Miscellaneous Test Crossmatch 11/05/16 11/05/16 11/05/16 12:23 13:09 13:25 WBC RBC Hgb Hct MCV MCH MCHC RDW Plt Count Lymph % (Auto) [place] % (Auto) Lymph # [place] # Baso # Seg Neutrophils % Seg Neuts % (Manual) Lymphocytes % (Manual) Monocytes % (Manual) Eosinophils % (Manual) Basophils % (Manual) Nucleated RBC % Seg Neutrophils # Seg Neutrophils # Man Lymphocytes # (Manual) Monocytes # (Manual) Eosinophils # (Manual) PT INR Fibrinogen dRVVT Confirm Interp Factor V Activity POC ABG pH POC ABG pCO2 POC ABG pO2 ABG pO2 ABG HCO3 ABG Hemoglobin Oxyhemoglobin Sodium Potassium Chloride Carbon Dioxide BUN Creatinine Glucose POC Glucose 124 H Lactic Acid Calcium Phosphorus Magnesium Direct Bilirubin AST ALT Alkaline Phosphatase Lactate Dehydrogenase Troponin T C-Reactive Protein 11.40 H Total Protein Albumin Prealbumin Triglycerides Cholesterol LDL Cholesterol Direct HDL Cholesterol Urine pH 9.0 H Urine WBC (Auto) Urine Creatinine Urine Total Protein Fluid Total Protein Vancomycin Trough Rheumatoid Factor Complement C4 Miscellaneous Test Crossmatch 11/05/16 11/05/16 11/05/16 13:25 17:54 23:42 WBC RBC Hgb Hct MCV MCH MCHC RDW Plt Count Lymph % (Auto) [place] % (Auto) Lymph # [place] # Baso # Seg Neutrophils % Seg Neuts % (Manual) Lymphocytes % (Manual) Monocytes % (Manual) Eosinophils % (Manual) Basophils % (Manual) Nucleated RBC % Seg Neutrophils # Seg Neutrophils # Man Lymphocytes # (Manual) Monocytes # (Manual) Eosinophils # (Manual) PT INR Fibrinogen dRVVT Confirm Interp Factor V Activity POC ABG pH POC ABG pCO2 POC ABG pO2 ABG pO2 ABG HCO3 ABG Hemoglobin Oxyhemoglobin Sodium Potassium Chloride Carbon Dioxide BUN Creatinine Glucose POC Glucose 114 H 134 H Lactic Acid Calcium Phosphorus Magnesium Direct Bilirubin AST ALT Alkaline Phosphatase Lactate Dehydrogenase Troponin T C-Reactive Protein Total Protein Albumin Prealbumin Triglycerides Cholesterol LDL Cholesterol Direct HDL Cholesterol Urine pH Urine WBC (Auto) Urine Creatinine Urine Total Protein Fluid Total Protein Vancomycin Trough Rheumatoid Factor Complement C4 Miscellaneous Test Flexitest 1 H Crossmatch 11/06/16 11/06/16 11/06/16 04:56 06:25 06:25 WBC RBC 2.50 L Hgb 7.3 L Hct 22.5 L MCV MCH MCHC RDW 16.9 H Plt Count Lymph % (Auto) [place] % (Auto) 10.5 H Lymph # [place] # 1.1 H Baso # Seg Neutrophils % Seg Neuts % (Manual) Lymphocytes % (Manual) Monocytes % (Manual) Eosinophils % (Manual) Basophils % (Manual) Nucleated RBC % Seg Neutrophils # Seg Neutrophils # Man Lymphocytes # (Manual) Monocytes # (Manual) Eosinophils # (Manual) PT INR Fibrinogen dRVVT Confirm Interp Factor V Activity POC ABG pH POC ABG pCO2 POC ABG pO2 ABG pO2 ABG HCO3 ABG Hemoglobin Oxyhemoglobin Sodium Potassium 5.1 H Chloride 95.9 L Carbon Dioxide BUN 52 H Creatinine 1.8 H Glucose 117 H POC Glucose 120 H Lactic Acid Calcium Phosphorus Magnesium Direct Bilirubin AST 103 H ALT 77 H Alkaline Phosphatase 285 H Lactate Dehydrogenase Troponin T C-Reactive Protein Total Protein 6.2 L Albumin 1.8 L Prealbumin 0.180 L Triglycerides Cholesterol LDL Cholesterol Direct HDL Cholesterol Urine pH Urine WBC (Auto) Urine Creatinine Urine Total Protein Fluid Total Protein Vancomycin Trough Rheumatoid Factor Complement C4 Miscellaneous Test Crossmatch 11/06/16 11/06/16 11/06/16 11:56 17:14 23:52 WBC RBC Hgb Hct MCV MCH MCHC RDW Plt Count Lymph % (Auto) [place] % (Auto) Lymph # [place] # Baso # Seg Neutrophils % Seg Neuts % (Manual) Lymphocytes % (Manual) Monocytes % (Manual) Eosinophils % (Manual) Basophils % (Manual) Nucleated RBC % Seg Neutrophils # Seg Neutrophils # Man Lymphocytes # (Manual) Monocytes # (Manual) Eosinophils # (Manual) PT INR Fibrinogen dRVVT Confirm Interp Factor V Activity POC ABG pH POC ABG pCO2 POC ABG pO2 ABG pO2 ABG HCO3 ABG Hemoglobin Oxyhemoglobin Sodium Potassium Chloride Carbon Dioxide BUN Creatinine Glucose POC Glucose 141 H 125 H 130 H Lactic Acid Calcium Phosphorus Magnesium Direct Bilirubin AST ALT Alkaline Phosphatase Lactate Dehydrogenase Troponin T C-Reactive Protein Total Protein Albumin Prealbumin Triglycerides Cholesterol LDL Cholesterol Direct HDL Cholesterol Urine pH Urine WBC (Auto) Urine Creatinine Urine Total Protein Fluid Total Protein Vancomycin Trough Rheumatoid Factor Complement C4 Miscellaneous Test Crossmatch 11/07/16 11/07/16 11/07/16 06:30 06:30 09:37 WBC RBC 2.18 L Hgb 6.3 L Hct 19.7 L* MCV MCH MCHC RDW 16.8 H Plt Count Lymph % (Auto) [place] % (Auto) 10.0 H Lymph # [place] # 1.0 H Baso # Seg Neutrophils % Seg Neuts % (Manual) Lymphocytes % (Manual) Monocytes % (Manual) Eosinophils % (Manual) Basophils % (Manual) Nucleated RBC % Seg Neutrophils # Seg Neutrophils # Man Lymphocytes # (Manual) Monocytes # (Manual) Eosinophils # (Manual) PT INR Fibrinogen dRVVT Confirm Interp Factor V Activity POC ABG pH POC ABG pCO2 POC ABG pO2 ABG pO2 ABG HCO3 ABG Hemoglobin Oxyhemoglobin Sodium 135 L Potassium Chloride 95.6 L Carbon Dioxide BUN 70 H Creatinine 2.0 H Glucose 126 H POC Glucose Lactic Acid Calcium Phosphorus Magnesium Direct Bilirubin AST ALT Alkaline Phosphatase Lactate Dehydrogenase Troponin T C-Reactive Protein Total Protein Albumin Prealbumin Triglycerides Cholesterol LDL Cholesterol Direct HDL Cholesterol Urine pH Urine WBC (Auto) Urine Creatinine Urine Total Protein Fluid Total Protein Vancomycin Trough Rheumatoid Factor Complement C4 Miscellaneous Test Crossmatch See Detail 11/07/16 11/07/16 11/07/16 12:52 18:51 21:26 WBC RBC Hgb Hct MCV MCH MCHC RDW Plt Count Lymph % (Auto) [place] % (Auto) Lymph # [place] # Baso # Seg Neutrophils % Seg Neuts % (Manual) Lymphocytes % (Manual) Monocytes % (Manual) Eosinophils % (Manual) Basophils % (Manual) Nucleated RBC % Seg Neutrophils # Seg Neutrophils # Man Lymphocytes # (Manual) Monocytes # (Manual) Eosinophils # (Manual) PT INR Fibrinogen dRVVT Confirm Interp Factor V Activity POC ABG pH 7.523 H POC ABG pCO2 34.6 L POC ABG pO2 53 L ABG pO2 ABG HCO3 ABG Hemoglobin Oxyhemoglobin Sodium Potassium Chloride Carbon Dioxide BUN Creatinine Glucose POC Glucose 142 H 155 H Lactic Acid Calcium Phosphorus Magnesium Direct Bilirubin AST ALT Alkaline Phosphatase Lactate Dehydrogenase Troponin T C-Reactive Protein Total Protein Albumin Prealbumin Triglycerides Cholesterol LDL Cholesterol Direct HDL Cholesterol Urine pH Urine WBC (Auto) Urine Creatinine Urine Total Protein Fluid Total Protein Vancomycin Trough Rheumatoid Factor Complement C4 Miscellaneous Test Crossmatch 11/07/16 11/08/16 11/08/16 21:34 13:03 23:37 WBC RBC 2.63 L Hgb 7.7 L Hct 22.7 L MCV MCH MCHC RDW 17.0 H Plt Count Lymph % (Auto) [place] % (Auto) Lymph # [place] # Baso # Seg Neutrophils % Seg Neuts % (Manual) Lymphocytes % (Manual) Monocytes % (Manual) Eosinophils % (Manual) Basophils % (Manual) Nucleated RBC % Seg Neutrophils # Seg Neutrophils # Man Lymphocytes # (Manual) Monocytes # (Manual) Eosinophils # (Manual) PT INR Fibrinogen dRVVT Confirm Interp Factor V Activity POC ABG pH 7.478 H POC ABG pCO2 34.0 L POC ABG pO2 50 L ABG pO2 ABG HCO3 ABG Hemoglobin Oxyhemoglobin Sodium Potassium Chloride Carbon Dioxide BUN Creatinine Glucose POC Glucose 113 H Lactic Acid Calcium Phosphorus Magnesium Direct Bilirubin AST ALT Alkaline Phosphatase Lactate Dehydrogenase Troponin T C-Reactive Protein Total Protein Albumin Prealbumin Triglycerides Cholesterol LDL Cholesterol Direct HDL Cholesterol Urine pH Urine WBC (Auto) Urine Creatinine Urine Total Protein Fluid Total Protein Vancomycin Trough Rheumatoid Factor Complement C4 Miscellaneous Test Crossmatch 11/09/16 11/09/16 11/09/16 04:35 10:15 18:21 WBC RBC 2.68 L Hgb 7.8 L Hct 23.3 L MCV MCH MCHC RDW 17.0 H Plt Count Lymph % (Auto) [place] % (Auto) 12.1 H Lymph # [place] # 1.1 H Baso # Seg Neutrophils % Seg Neuts % (Manual) Lymphocytes % (Manual) Monocytes % (Manual) Eosinophils % (Manual) Basophils % (Manual) Nucleated RBC % Seg Neutrophils # Seg Neutrophils # Man Lymphocytes # (Manual) Monocytes # (Manual) Eosinophils # (Manual) PT INR Fibrinogen dRVVT Confirm Interp Factor V Activity POC ABG pH POC ABG pCO2 POC ABG pO2 ABG pO2 ABG HCO3 ABG Hemoglobin Oxyhemoglobin Sodium Potassium Chloride Carbon Dioxide BUN 51 H Creatinine 1.8 H Glucose POC Glucose 60 L Lactic Acid Calcium 8.3 L Phosphorus Magnesium Direct Bilirubin AST ALT Alkaline Phosphatase Lactate Dehydrogenase Troponin T C-Reactive Protein Total Protein Albumin Prealbumin Triglycerides Cholesterol LDL Cholesterol Direct HDL Cholesterol Urine pH Urine WBC (Auto) Urine Creatinine Urine Total Protein Fluid Total Protein Vancomycin Trough Rheumatoid Factor Complement C4 Miscellaneous Test Crossmatch 11/09/16 11/10/16 11/10/16 18:55 07:00 11:51 WBC RBC Hgb Hct MCV MCH MCHC RDW Plt Count Lymph % (Auto) [place] % (Auto) Lymph # [place] # Baso # Seg Neutrophils % Seg Neuts % (Manual) Lymphocytes % (Manual) Monocytes % (Manual) Eosinophils % (Manual) Basophils % (Manual) Nucleated RBC % Seg Neutrophils # Seg Neutrophils # Man Lymphocytes # (Manual) Monocytes # (Manual) Eosinophils # (Manual) PT INR Fibrinogen dRVVT Confirm Interp Factor V Activity POC ABG pH POC ABG pCO2 POC ABG pO2 ABG pO2 ABG HCO3 ABG Hemoglobin Oxyhemoglobin Sodium Potassium 3.0 L D Chloride 97.4 L Carbon Dioxide BUN 28 H Creatinine 1.3 H Glucose POC Glucose 68 L 120 H Lactic Acid Calcium 7.8 L Phosphorus Magnesium Direct Bilirubin AST ALT Alkaline Phosphatase Lactate Dehydrogenase Troponin T C-Reactive Protein Total Protein Albumin Prealbumin Triglycerides Cholesterol LDL Cholesterol Direct HDL Cholesterol Urine pH Urine WBC (Auto) Urine Creatinine Urine Total Protein Fluid Total Protein Vancomycin Trough Rheumatoid Factor Complement C4 Miscellaneous Test Crossmatch 11/10/16 11/11/16 11/11/16 14:20 06:59 06:59 WBC RBC 2.81 L Hgb 8.1 L Hct 24.4 L MCV MCH MCHC RDW 16.4 H Plt Count Lymph % (Auto) [place] % (Auto) 10.8 H Lymph # [place] # 1.0 H Baso # Seg Neutrophils % Seg Neuts % (Manual) Lymphocytes % (Manual) Monocytes % (Manual) Eosinophils % (Manual) Basophils % (Manual) Nucleated RBC % Seg Neutrophils # Seg Neutrophils # Man Lymphocytes # (Manual) Monocytes # (Manual) Eosinophils # (Manual) PT INR Fibrinogen dRVVT Confirm Interp Factor V Activity POC ABG pH POC ABG pCO2 POC ABG pO2 ABG pO2 ABG HCO3 ABG Hemoglobin Oxyhemoglobin Sodium Potassium Chloride Carbon Dioxide BUN Creatinine Glucose POC Glucose Lactic Acid Calcium Phosphorus Magnesium Direct Bilirubin AST ALT Alkaline Phosphatase Lactate Dehydrogenase 196 H Troponin T C-Reactive Protein Total Protein 6.1 L Albumin Prealbumin Triglycerides Cholesterol LDL Cholesterol Direct HDL Cholesterol Urine pH Urine WBC (Auto) Urine Creatinine Urine Total Protein Fluid Total Protein < 3.0 L Vancomycin Trough Rheumatoid Factor Complement C4 Miscellaneous Test Crossmatch 11/11/16 11/11/16 11/12/16 06:59 09:50 04:00 WBC RBC Hgb Hct MCV MCH MCHC RDW Plt Count Lymph % (Auto) [place] % (Auto) Lymph # [place] # Baso # Seg Neutrophils % Seg Neuts % (Manual) Lymphocytes % (Manual) Monocytes % (Manual) Eosinophils % (Manual) Basophils % (Manual) Nucleated RBC % Seg Neutrophils # Seg Neutrophils # Man Lymphocytes # (Manual) Monocytes # (Manual) Eosinophils # (Manual) PT INR 1.18 H Fibrinogen dRVVT Confirm Interp Factor V Activity POC ABG pH POC ABG pCO2 POC ABG pO2 ABG pO2 ABG HCO3 ABG Hemoglobin Oxyhemoglobin Sodium 136 L 133 L Potassium Chloride 96.1 L 94.8 L Carbon Dioxide 21 L BUN 37 H 42 H Creatinine 1.8 H 2.0 H Glucose POC Glucose Lactic Acid Calcium Phosphorus Magnesium Direct Bilirubin AST ALT Alkaline Phosphatase Lactate Dehydrogenase Troponin T C-Reactive Protein Total Protein Albumin Prealbumin Triglycerides Cholesterol LDL Cholesterol Direct HDL Cholesterol Urine pH Urine WBC (Auto) Urine Creatinine Urine Total Protein Fluid Total Protein Vancomycin Trough Rheumatoid Factor Complement C4 Miscellaneous Test Crossmatch 11/12/16 11/12/16 11/13/16 04:00 23:55 05:53 WBC RBC Hgb 8.9 L Hct 27.2 L MCV MCH MCHC RDW Plt Count Lymph % (Auto) [place] % (Auto) Lymph # [place] # Baso # Seg Neutrophils % Seg Neuts % (Manual) Lymphocytes % (Manual) Monocytes % (Manual) Eosinophils % (Manual) Basophils % (Manual) Nucleated RBC % Seg Neutrophils # Seg Neutrophils # Man Lymphocytes # (Manual) Monocytes # (Manual) Eosinophils # (Manual) PT INR Fibrinogen dRVVT Confirm Interp Factor V Activity POC ABG pH POC ABG pCO2 POC ABG pO2 ABG pO2 ABG HCO3 ABG Hemoglobin Oxyhemoglobin Sodium Potassium Chloride Carbon Dioxide BUN Creatinine Glucose POC Glucose 132 H 120 H Lactic Acid Calcium Phosphorus Magnesium Direct Bilirubin AST ALT Alkaline Phosphatase Lactate Dehydrogenase Troponin T C-Reactive Protein Total Protein Albumin Prealbumin Triglycerides Cholesterol LDL Cholesterol Direct HDL Cholesterol Urine pH Urine WBC (Auto) Urine Creatinine Urine Total Protein Fluid Total Protein Vancomycin Trough Rheumatoid Factor Complement C4 Miscellaneous Test Crossmatch 11/13/16 11/13/16 11/13/16 11:43 17:09 23:41 WBC RBC Hgb Hct MCV MCH MCHC RDW Plt Count Lymph % (Auto) [place] % (Auto) Lymph # [place] # Baso # Seg Neutrophils % Seg Neuts % (Manual) Lymphocytes % (Manual) Monocytes % (Manual) Eosinophils % (Manual) Basophils % (Manual) Nucleated RBC % Seg Neutrophils # Seg Neutrophils # Man Lymphocytes # (Manual) Monocytes # (Manual) Eosinophils # (Manual) PT INR Fibrinogen dRVVT Confirm Interp Factor V Activity POC ABG pH POC ABG pCO2 POC ABG pO2 ABG pO2 ABG HCO3 ABG Hemoglobin Oxyhemoglobin Sodium Potassium Chloride Carbon Dioxide BUN Creatinine Glucose POC Glucose 114 H 113 H 108 H Lactic Acid Calcium Phosphorus Magnesium Direct Bilirubin AST ALT Alkaline Phosphatase Lactate Dehydrogenase Troponin T C-Reactive Protein Total Protein Albumin Prealbumin Triglycerides Cholesterol LDL Cholesterol Direct HDL Cholesterol Urine pH Urine WBC (Auto) Urine Creatinine Urine Total Protein Fluid Total Protein Vancomycin Trough Rheumatoid Factor Complement C4 Miscellaneous Test Crossmatch 11/13/16 11/15/1617 Unknown 00:37 03:30 WBC 11.2 H RBC 2.72 L Hgb 7.6 L Hct 23.4 L MCV MCH MCHC RDW 16.5 H Plt Count Lymph % (Auto) [place] % (Auto) Lymph # [place] # Baso # Seg Neutrophils % Seg Neuts % (Manual) Lymphocytes % (Manual) Monocytes % (Manual) Eosinophils % (Manual) Basophils % (Manual) Nucleated RBC % Seg Neutrophils # Seg Neutrophils # Man Lymphocytes # (Manual) Monocytes # (Manual) Eosinophils # (Manual) PT INR Fibrinogen dRVVT Confirm Interp Factor V Activity POC ABG pH POC ABG pCO2 POC ABG pO2 ABG pO2 ABG HCO3 ABG Hemoglobin Oxyhemoglobin Sodium 135 L Potassium Chloride 95.2 L Carbon Dioxide BUN 52 H Creatinine 2.2 H Glucose POC Glucose 108 H Lactic Acid Calcium Phosphorus Magnesium Direct Bilirubin AST ALT Alkaline Phosphatase Lactate Dehydrogenase Troponin T C-Reactive Protein Total Protein Albumin Prealbumin Triglycerides Cholesterol LDL Cholesterol Direct HDL Cholesterol Urine pH Urine WBC (Auto) Urine Creatinine Urine Total Protein Fluid Total Protein Vancomycin Trough Rheumatoid Factor Complement C4 Miscellaneous Test Crossmatch 11/15/16 11/15/16 11/15/16 03:30 05:04 11:50 WBC RBC Hgb Hct MCV MCH MCHC RDW Plt Count Lymph % (Auto) [place] % (Auto) Lymph # [place] # Baso # Seg Neutrophils % Seg Neuts % (Manual) Lymphocytes % (Manual) Monocytes % (Manual) Eosinophils % (Manual) Basophils % (Manual) Nucleated RBC % Seg Neutrophils # Seg Neutrophils # Man Lymphocytes # (Manual) Monocytes # (Manual) Eosinophils # (Manual) PT INR Fibrinogen dRVVT Confirm Interp Factor V Activity POC ABG pH POC ABG pCO2 POC ABG pO2 ABG pO2 ABG HCO3 ABG Hemoglobin Oxyhemoglobin Sodium Potassium 3.4 L Chloride Carbon Dioxide BUN 25 H Creatinine 1.5 H Glucose 103 H POC Glucose 121 H 144 H Lactic Acid Calcium Phosphorus Magnesium Direct Bilirubin AST ALT Alkaline Phosphatase Lactate Dehydrogenase Troponin T C-Reactive Protein Total Protein Albumin Prealbumin Triglycerides Cholesterol LDL Cholesterol Direct HDL Cholesterol Urine pH Urine WBC (Auto) Urine Creatinine Urine Total Protein Fluid Total Protein Vancomycin Trough Rheumatoid Factor Complement C4 Miscellaneous Test Crossmatch 11/15/16 11/15/16 11/16/16 21:28 23:20 11:44 WBC RBC Hgb Hct MCV MCH MCHC RDW Plt Count Lymph % (Auto) [place] % (Auto) Lymph # [place] # Baso # Seg Neutrophils % Seg Neuts % (Manual) Lymphocytes % (Manual) Monocytes % (Manual) Eosinophils % (Manual) Basophils % (Manual) Nucleated RBC % Seg Neutrophils # Seg Neutrophils # Man Lymphocytes # (Manual) Monocytes # (Manual) Eosinophils # (Manual) PT INR Fibrinogen dRVVT Confirm Interp Factor V Activity POC ABG pH 7.462 H POC ABG pCO2 POC ABG pO2 71 L ABG pO2 ABG HCO3 ABG Hemoglobin Oxyhemoglobin Sodium Potassium Chloride Carbon Dioxide BUN Creatinine Glucose POC Glucose 116 H 133 H Lactic Acid Calcium Phosphorus Magnesium Direct Bilirubin AST ALT Alkaline Phosphatase Lactate Dehydrogenase Troponin T C-Reactive Protein Total Protein Albumin Prealbumin Triglycerides Cholesterol LDL Cholesterol Direct HDL Cholesterol Urine pH Urine WBC (Auto) Urine Creatinine Urine Total Protein Fluid Total Protein Vancomycin Trough Rheumatoid Factor Complement C4 Miscellaneous Test Crossmatch 11/16/16 11/16/16 11/16/16 12:20 17:05 23:35 WBC 11.7 H RBC 2.73 L Hgb 7.6 L Hct 23.7 L MCV MCH MCHC RDW 16.6 H Plt Count Lymph % (Auto) [place] % (Auto) Lymph # [place] # Baso # Seg Neutrophils % Seg Neuts % (Manual) Lymphocytes % (Manual) Monocytes % (Manual) Eosinophils % (Manual) Basophils % (Manual) Nucleated RBC % Seg Neutrophils # Seg Neutrophils # Man Lymphocytes # (Manual) Monocytes # (Manual) Eosinophils # (Manual) PT INR Fibrinogen dRVVT Confirm Interp Factor V Activity POC ABG pH POC ABG pCO2 POC ABG pO2 ABG pO2 ABG HCO3 ABG Hemoglobin Oxyhemoglobin Sodium Potassium Chloride Carbon Dioxide BUN Creatinine Glucose POC Glucose 154 H 125 H Lactic Acid Calcium Phosphorus Magnesium Direct Bilirubin AST ALT Alkaline Phosphatase Lactate Dehydrogenase Troponin T C-Reactive Protein Total Protein Albumin Prealbumin Triglycerides Cholesterol LDL Cholesterol Direct HDL Cholesterol Urine pH Urine WBC (Auto) Urine Creatinine Urine Total Protein Fluid Total Protein Vancomycin Trough Rheumatoid Factor Complement C4 Miscellaneous Test Crossmatch 11/17/16 11/17/16 11/17/16 03:20 03:20 03:20 WBC RBC 2.55 L Hgb 7.3 L Hct 21.9 L MCV MCH MCHC RDW 16.6 H Plt Count Lymph % (Auto) [place] % (Auto) 11.5 H Lymph # [place] # 1.1 H Baso # Seg Neutrophils % Seg Neuts % (Manual) Lymphocytes % (Manual) Monocytes % (Manual) Eosinophils % (Manual) Basophils % (Manual) Nucleated RBC % Seg Neutrophils # Seg Neutrophils # Man Lymphocytes # (Manual) Monocytes # (Manual) Eosinophils # (Manual) PT 16.8 H INR 1.37 H Fibrinogen dRVVT Confirm Interp Factor V Activity POC ABG pH POC ABG pCO2 POC ABG pO2 ABG pO2 ABG HCO3 ABG Hemoglobin Oxyhemoglobin Sodium Potassium 3.5 L Chloride Carbon Dioxide BUN 21 H Creatinine Glucose POC Glucose Lactic Acid Calcium 7.9 L Phosphorus Magnesium Direct Bilirubin AST ALT Alkaline Phosphatase Lactate Dehydrogenase Troponin T C-Reactive Protein Total Protein Albumin Prealbumin Triglycerides Cholesterol LDL Cholesterol Direct HDL Cholesterol Urine pH Urine WBC (Auto) Urine Creatinine Urine Total Protein Fluid Total Protein Vancomycin Trough Rheumatoid Factor Complement C4 Miscellaneous Test Crossmatch 11/17/16 11/17/16 11/17/16 06:34 11:21 21:22 WBC RBC Hgb Hct MCV MCH MCHC RDW Plt Count Lymph % (Auto) [place] % (Auto) Lymph # [place] # Baso # Seg Neutrophils % Seg Neuts % (Manual) Lymphocytes % (Manual) Monocytes % (Manual) Eosinophils % (Manual) Basophils % (Manual) Nucleated RBC % Seg Neutrophils # Seg Neutrophils # Man Lymphocytes # (Manual) Monocytes # (Manual) Eosinophils # (Manual) PT INR Fibrinogen dRVVT Confirm Interp Factor V Activity POC ABG pH 7.467 H POC ABG pCO2 POC ABG pO2 73 L ABG pO2 ABG HCO3 ABG Hemoglobin Oxyhemoglobin Sodium Potassium Chloride Carbon Dioxide BUN Creatinine Glucose POC Glucose 121 H 119 H Lactic Acid Calcium Phosphorus Magnesium Direct Bilirubin AST ALT Alkaline Phosphatase Lactate Dehydrogenase Troponin T C-Reactive Protein Total Protein Albumin Prealbumin Triglycerides Cholesterol LDL Cholesterol Direct HDL Cholesterol Urine pH Urine WBC (Auto) Urine Creatinine Urine Total Protein Fluid Total Protein Vancomycin Trough Rheumatoid Factor Complement C4 Miscellaneous Test Crossmatch 11/18/16 11/18/16 11/19/16 12:16 17:19 00:00 WBC RBC Hgb Hct MCV MCH MCHC RDW Plt Count Lymph % (Auto) [place] % (Auto) Lymph # [place] # Baso # Seg Neutrophils % Seg Neuts % (Manual) Lymphocytes % (Manual) Monocytes % (Manual) Eosinophils % (Manual) Basophils % (Manual) Nucleated RBC % Seg Neutrophils # Seg Neutrophils # Man Lymphocytes # (Manual) Monocytes # (Manual) Eosinophils # (Manual) PT INR Fibrinogen dRVVT Confirm Interp Factor V Activity POC ABG pH POC ABG pCO2 POC ABG pO2 ABG pO2 ABG HCO3 ABG Hemoglobin Oxyhemoglobin Sodium Potassium Chloride Carbon Dioxide BUN Creatinine Glucose POC Glucose 124 H 162 H 139 H Lactic Acid Calcium Phosphorus Magnesium Direct Bilirubin AST ALT Alkaline Phosphatase Lactate Dehydrogenase Troponin T C-Reactive Protein Total Protein Albumin Prealbumin Triglycerides Cholesterol LDL Cholesterol Direct HDL Cholesterol Urine pH Urine WBC (Auto) Urine Creatinine Urine Total Protein Fluid Total Protein Vancomycin Trough Rheumatoid Factor Complement C4 Miscellaneous Test Crossmatch 11/19/16 11/19/16 11/20/16 05:00 12:43 00:40 WBC RBC Hgb Hct MCV MCH MCHC RDW Plt Count Lymph % (Auto) [place] % (Auto) Lymph # [place] # Baso # Seg Neutrophils % Seg Neuts % (Manual) Lymphocytes % (Manual) Monocytes % (Manual) Eosinophils % (Manual) Basophils % (Manual) Nucleated RBC % Seg Neutrophils # Seg Neutrophils # Man Lymphocytes # (Manual) Monocytes # (Manual) Eosinophils # (Manual) PT INR Fibrinogen dRVVT Confirm Interp Factor V Activity POC ABG pH POC ABG pCO2 POC ABG pO2 ABG pO2 ABG HCO3 ABG Hemoglobin Oxyhemoglobin Sodium Potassium Chloride Carbon Dioxide BUN Creatinine Glucose POC Glucose 110 H 125 H 136 H Lactic Acid Calcium Phosphorus Magnesium Direct Bilirubin AST ALT Alkaline Phosphatase Lactate Dehydrogenase Troponin T C-Reactive Protein Total Protein Albumin Prealbumin Triglycerides Cholesterol LDL Cholesterol Direct HDL Cholesterol Urine pH Urine WBC (Auto) Urine Creatinine Urine Total Protein Fluid Total Protein Vancomycin Trough Rheumatoid Factor Complement C4 Miscellaneous Test Crossmatch 11/20/16 11/20/16 11/20/16 05:00 05:00 05:51 WBC 13.1 H RBC 2.74 L Hgb 7.7 L Hct 23.6 L MCV MCH MCHC RDW 16.9 H Plt Count Lymph % (Auto) [place] % (Auto) 10.8 H Lymph # [place] # 1.4 H Baso # Seg Neutrophils % Seg Neuts % (Manual) Lymphocytes % (Manual) Monocytes % (Manual) Eosinophils % (Manual) Basophils % (Manual) Nucleated RBC % Seg Neutrophils # 7.9 H Seg Neutrophils # Man Lymphocytes # (Manual) Monocytes # (Manual) Eosinophils # (Manual) PT INR Fibrinogen dRVVT Confirm Interp Factor V Activity POC ABG pH POC ABG pCO2 POC ABG pO2 ABG pO2 ABG HCO3 ABG Hemoglobin Oxyhemoglobin Sodium Potassium Chloride Carbon Dioxide BUN 31 H Creatinine 1.8 H Glucose 129 H POC Glucose 133 H Lactic Acid Calcium Phosphorus Magnesium Direct Bilirubin AST ALT Alkaline Phosphatase Lactate Dehydrogenase Troponin T C-Reactive Protein Total Protein Albumin Prealbumin Triglycerides Cholesterol LDL Cholesterol Direct HDL Cholesterol Urine pH Urine WBC (Auto) Urine Creatinine Urine Total Protein Fluid Total Protein Vancomycin Trough Rheumatoid Factor Complement C4 Miscellaneous Test Crossmatch 11/20/16 11/20/16 11/21/16 12:40 18:10 01:20 WBC RBC Hgb Hct MCV MCH MCHC RDW Plt Count Lymph % (Auto) [place] % (Auto) Lymph # [place] # Baso # Seg Neutrophils % Seg Neuts % (Manual) Lymphocytes % (Manual) Monocytes % (Manual) Eosinophils % (Manual) Basophils % (Manual) Nucleated RBC % Seg Neutrophils # Seg Neutrophils # Man Lymphocytes # (Manual) Monocytes # (Manual) Eosinophils # (Manual) PT INR Fibrinogen dRVVT Confirm Interp Factor V Activity POC ABG pH POC ABG pCO2 POC ABG pO2 ABG pO2 ABG HCO3 ABG Hemoglobin Oxyhemoglobin Sodium Potassium Chloride Carbon Dioxide BUN Creatinine Glucose POC Glucose 134 H 138 H 136 H Lactic Acid Calcium Phosphorus Magnesium Direct Bilirubin AST ALT Alkaline Phosphatase Lactate Dehydrogenase Troponin T C-Reactive Protein Total Protein Albumin Prealbumin Triglycerides Cholesterol LDL Cholesterol Direct HDL Cholesterol Urine pH Urine WBC (Auto) Urine Creatinine Urine Total Protein Fluid Total Protein Vancomycin Trough Rheumatoid Factor Complement C4 Miscellaneous Test Crossmatch 11/21/16 11/21/16 11/21/16 07:04 07:45 07:45 WBC 22.0 H RBC 2.91 L Hgb 8.2 L Hct 25.4 L MCV MCH MCHC RDW 17.1 H Plt Count Lymph % (Auto) [place] % (Auto) Lymph # [place] # Baso # Seg Neutrophils % Seg Neuts % (Manual) Lymphocytes % (Manual) 8.0 L Monocytes % (Manual) Eosinophils % (Manual) Basophils % (Manual) Nucleated RBC % Seg Neutrophils # Seg Neutrophils # Man 14.7 H Lymphocytes # (Manual) Monocytes # (Manual) 1.1 H Eosinophils # (Manual) PT INR Fibrinogen dRVVT Confirm Interp Factor V Activity POC ABG pH POC ABG pCO2 POC ABG pO2 ABG pO2 ABG HCO3 ABG Hemoglobin Oxyhemoglobin Sodium Potassium Chloride Carbon Dioxide BUN 42 H Creatinine 2.0 H Glucose POC Glucose 108 H Lactic Acid Calcium Phosphorus Magnesium Direct Bilirubin AST ALT Alkaline Phosphatase Lactate Dehydrogenase Troponin T C-Reactive Protein Total Protein Albumin Prealbumin Triglycerides Cholesterol LDL Cholesterol Direct HDL Cholesterol Urine pH Urine WBC (Auto) Urine Creatinine Urine Total Protein Fluid Total Protein Vancomycin Trough Rheumatoid Factor Complement C4 Miscellaneous Test Crossmatch 11/21/16 11/21/16 11/21/16 08:38 10:09 11:20 WBC RBC Hgb Hct MCV MCH MCHC RDW Plt Count Lymph % (Auto) [place] % (Auto) Lymph # [place] # Baso # Seg Neutrophils % Seg Neuts % (Manual) Lymphocytes % (Manual) Monocytes % (Manual) Eosinophils % (Manual) Basophils % (Manual) Nucleated RBC % Seg Neutrophils # Seg Neutrophils # Man Lymphocytes # (Manual) Monocytes # (Manual) Eosinophils # (Manual) PT INR Fibrinogen dRVVT Confirm Interp Factor V Activity POC ABG pH 7.346 L POC ABG pCO2 34.4 L POC ABG pO2 314 H ABG pO2 ABG HCO3 ABG Hemoglobin Oxyhemoglobin Sodium Potassium Chloride Carbon Dioxide BUN Creatinine Glucose POC Glucose 195 H 153 H Lactic Acid Calcium Phosphorus Magnesium Direct Bilirubin AST ALT Alkaline Phosphatase Lactate Dehydrogenase Troponin T C-Reactive Protein Total Protein Albumin Prealbumin Triglycerides Cholesterol LDL Cholesterol Direct HDL Cholesterol Urine pH Urine WBC (Auto) Urine Creatinine Urine Total Protein Fluid Total Protein Vancomycin Trough Rheumatoid Factor Complement C4 Miscellaneous Test Crossmatch 11/21/16 11/22/16 11/22/16 23:37 04:48 05:00 WBC 29.7 H RBC 2.73 L Hgb 7.5 L Hct 24.2 L MCV MCH 27 L MCHC RDW 17.4 H Plt Count Lymph % (Auto) [place] % (Auto) Lymph # [place] # Baso # Seg Neutrophils % Seg Neuts % (Manual) Lymphocytes % (Manual) 7.0 L Monocytes % (Manual) Eosinophils % (Manual) Basophils % (Manual) Nucleated RBC % Seg Neutrophils # Seg Neutrophils # Man 15.4 H Lymphocytes # (Manual) Monocytes # (Manual) Eosinophils # (Manual) PT INR Fibrinogen dRVVT Confirm Interp Factor V Activity POC ABG pH POC ABG pCO2 24.6 L POC ABG pO2 189 H ABG pO2 ABG HCO3 ABG Hemoglobin Oxyhemoglobin Sodium Potassium Chloride Carbon Dioxide BUN Creatinine Glucose POC Glucose 65 L Lactic Acid Calcium Phosphorus Magnesium Direct Bilirubin AST ALT Alkaline Phosphatase Lactate Dehydrogenase Troponin T C-Reactive Protein Total Protein Albumin Prealbumin Triglycerides Cholesterol LDL Cholesterol Direct HDL Cholesterol Urine pH Urine WBC (Auto) Urine Creatinine Urine Total Protein Fluid Total Protein Vancomycin Trough Rheumatoid Factor Complement C4 Miscellaneous Test Crossmatch 11/22/16 11/23/16 11/23/16 05:00 03:44 04:06 WBC RBC 2.52 L Hgb 7.2 L Hct 21.5 L MCV MCH MCHC RDW 17.1 H Plt Count Lymph % (Auto) [place] % (Auto) 12.4 H Lymph # [place] # 1.4 H Baso # Seg Neutrophils % Seg Neuts % (Manual) Lymphocytes % (Manual) Monocytes % (Manual) Eosinophils % (Manual) Basophils % (Manual) Nucleated RBC % Seg Neutrophils # Seg Neutrophils # Man Lymphocytes # (Manual) Monocytes # (Manual) Eosinophils # (Manual) PT INR Fibrinogen dRVVT Confirm Interp Factor V Activity POC ABG pH 7.493 H POC ABG pCO2 29.5 L POC ABG pO2 49 L ABG pO2 ABG HCO3 ABG Hemoglobin Oxyhemoglobin Sodium 134 L Potassium Chloride 95.9 L Carbon Dioxide 14 L D BUN 51 H Creatinine 2.6 H Glucose POC Glucose Lactic Acid Calcium Phosphorus Magnesium Direct Bilirubin AST ALT Alkaline Phosphatase Lactate Dehydrogenase Troponin T C-Reactive Protein Total Protein Albumin Prealbumin Triglycerides Cholesterol LDL Cholesterol Direct HDL Cholesterol Urine pH Urine WBC (Auto) Urine Creatinine Urine Total Protein Fluid Total Protein Vancomycin Trough Rheumatoid Factor Complement C4 Miscellaneous Test Crossmatch 11/23/16 11/23/16 11/24/16 04:06 11:29 06:39 WBC RBC Hgb Hct MCV MCH MCHC RDW Plt Count Lymph % (Auto) [place] % (Auto) Lymph # [place] # Baso # Seg Neutrophils % Seg Neuts % (Manual) Lymphocytes % (Manual) Monocytes % (Manual) Eosinophils % (Manual) Basophils % (Manual) Nucleated RBC % Seg Neutrophils # Seg Neutrophils # Man Lymphocytes # (Manual) Monocytes # (Manual) Eosinophils # (Manual) PT INR Fibrinogen dRVVT Confirm Interp Factor V Activity POC ABG pH POC ABG pCO2 POC ABG pO2 ABG pO2 ABG HCO3 ABG Hemoglobin Oxyhemoglobin Sodium 136 L Potassium Chloride 95.2 L Carbon Dioxide BUN 60 H Creatinine 2.9 H Glucose POC Glucose 69 L 305 H Lactic Acid Calcium Phosphorus Magnesium 1.60 L Direct Bilirubin AST ALT Alkaline Phosphatase Lactate Dehydrogenase Troponin T C-Reactive Protein Total Protein Albumin Prealbumin Triglycerides Cholesterol LDL Cholesterol Direct HDL Cholesterol Urine pH Urine WBC (Auto) Urine Creatinine Urine Total Protein Fluid Total Protein Vancomycin Trough Rheumatoid Factor Complement C4 Miscellaneous Test Crossmatch 11/24/16 11/24/16 11/24/16 06:43 08:08 08:08 WBC 11.2 H RBC 2.47 L Hgb 6.8 L Hct 20.6 L MCV MCH MCHC RDW 17.0 H Plt Count Lymph % (Auto) [place] % (Auto) 10.3 H Lymph # [place] # 1.2 H Baso # Seg Neutrophils % Seg Neuts % (Manual) Lymphocytes % (Manual) Monocytes % (Manual) Eosinophils % (Manual) Basophils % (Manual) Nucleated RBC % Seg Neutrophils # Seg Neutrophils # Man Lymphocytes # (Manual) Monocytes # (Manual) Eosinophils # (Manual) PT INR Fibrinogen dRVVT Confirm Interp Factor V Activity POC ABG pH POC ABG pCO2 POC ABG pO2 ABG pO2 ABG HCO3 ABG Hemoglobin Oxyhemoglobin Sodium 135 L Potassium Chloride 96.3 L Carbon Dioxide BUN 61 H Creatinine 3.1 H Glucose POC Glucose 62 L Lactic Acid Calcium 8.2 L Phosphorus Magnesium Direct Bilirubin AST ALT Alkaline Phosphatase Lactate Dehydrogenase Troponin T C-Reactive Protein Total Protein Albumin Prealbumin Triglycerides Cholesterol LDL Cholesterol Direct HDL Cholesterol Urine pH Urine WBC (Auto) Urine Creatinine Urine Total Protein Fluid Total Protein Vancomycin Trough Rheumatoid Factor Complement C4 Miscellaneous Test Crossmatch 11/24/16 11/24/16 11/24/16 08:34 11:20 12:41 WBC RBC Hgb Hct MCV MCH MCHC RDW Plt Count Lymph % (Auto) [place] % (Auto) Lymph # [place] # Baso # Seg Neutrophils % Seg Neuts % (Manual) Lymphocytes % (Manual) Monocytes % (Manual) Eosinophils % (Manual) Basophils % (Manual) Nucleated RBC % Seg Neutrophils # Seg Neutrophils # Man Lymphocytes # (Manual) Monocytes # (Manual) Eosinophils # (Manual) PT INR Fibrinogen dRVVT Confirm Interp Factor V Activity POC ABG pH POC ABG pCO2 POC ABG pO2 ABG pO2 ABG HCO3 ABG Hemoglobin Oxyhemoglobin Sodium Potassium Chloride Carbon Dioxide BUN Creatinine Glucose POC Glucose 108 H Lactic Acid Calcium Phosphorus Magnesium 1.60 L Direct Bilirubin AST ALT Alkaline Phosphatase Lactate Dehydrogenase Troponin T C-Reactive Protein Total Protein Albumin Prealbumin Triglycerides Cholesterol LDL Cholesterol Direct HDL Cholesterol Urine pH Urine WBC (Auto) Urine Creatinine Urine Total Protein Fluid Total Protein Vancomycin Trough Rheumatoid Factor Complement C4 Miscellaneous Test Crossmatch See Detail 11/25/16 11/25/16 11/25/16 00:03 04:42 04:42 WBC RBC 3.03 L Hgb 8.6 L Hct 25.3 L MCV MCH MCHC RDW 16.2 H Plt Count Lymph % (Auto) [place] % (Auto) 8.1 H Lymph # [place] # Baso # Seg Neutrophils % 71.3 H Seg Neuts % (Manual) Lymphocytes % (Manual) Monocytes % (Manual) Eosinophils % (Manual) Basophils % (Manual) Nucleated RBC % Seg Neutrophils # Seg Neutrophils # Man Lymphocytes # (Manual) Monocytes # (Manual) Eosinophils # (Manual) PT INR Fibrinogen dRVVT Confirm Interp Factor V Activity POC ABG pH POC ABG pCO2 POC ABG pO2 ABG pO2 ABG HCO3 ABG Hemoglobin Oxyhemoglobin Sodium Potassium Chloride Carbon Dioxide BUN 61 H Creatinine 3.0 H Glucose 102 H POC Glucose 113 H Lactic Acid Calcium 8.2 L Phosphorus Magnesium Direct Bilirubin AST ALT Alkaline Phosphatase 142 H Lactate Dehydrogenase Troponin T C-Reactive Protein Total Protein 5.7 L Albumin 1.5 L Prealbumin Triglycerides Cholesterol LDL Cholesterol Direct HDL Cholesterol Urine pH Urine WBC (Auto) Urine Creatinine Urine Total Protein Fluid Total Protein Vancomycin Trough Rheumatoid Factor Complement C4 Miscellaneous Test Crossmatch 11/25/16 11/25/16 11/25/16 05:12 11:31 14:12 WBC RBC Hgb Hct MCV MCH MCHC RDW Plt Count Lymph % (Auto) [place] % (Auto) Lymph # [place] # Baso # Seg Neutrophils % Seg Neuts % (Manual) Lymphocytes % (Manual) Monocytes % (Manual) Eosinophils % (Manual) Basophils % (Manual) Nucleated RBC % Seg Neutrophils # Seg Neutrophils # Man Lymphocytes # (Manual) Monocytes # (Manual) Eosinophils # (Manual) PT INR Fibrinogen dRVVT Confirm Interp Factor V Activity POC ABG pH 7.487 H POC ABG pCO2 POC ABG pO2 153 H ABG pO2 ABG HCO3 ABG Hemoglobin Oxyhemoglobin Sodium Potassium Chloride Carbon Dioxide BUN Creatinine Glucose POC Glucose 131 H 140 H Lactic Acid Calcium Phosphorus Magnesium Direct Bilirubin AST ALT Alkaline Phosphatase Lactate Dehydrogenase Troponin T C-Reactive Protein Total Protein Albumin Prealbumin Triglycerides Cholesterol LDL Cholesterol Direct HDL Cholesterol Urine pH Urine WBC (Auto) Urine Creatinine Urine Total Protein Fluid Total Protein Vancomycin Trough Rheumatoid Factor Complement C4 Miscellaneous Test Crossmatch 11/25/16 11/26/16 11/26/16 17:23 00:09 05:13 WBC RBC 2.94 L Hgb 8.4 L Hct 24.6 L MCV MCH MCHC RDW 16.4 H Plt Count Lymph % (Auto) [place] % (Auto) 12.3 H Lymph # [place] # 1.1 H Baso # Seg Neutrophils % Seg Neuts % (Manual) Lymphocytes % (Manual) Monocytes % (Manual) Eosinophils % (Manual) Basophils % (Manual) Nucleated RBC % Seg Neutrophils # Seg Neutrophils # Man Lymphocytes # (Manual) Monocytes # (Manual) Eosinophils # (Manual) PT INR Fibrinogen dRVVT Confirm Interp Factor V Activity POC ABG pH POC ABG pCO2 POC ABG pO2 ABG pO2 ABG HCO3 ABG Hemoglobin Oxyhemoglobin Sodium Potassium Chloride Carbon Dioxide BUN Creatinine Glucose POC Glucose 146 H 112 H Lactic Acid Calcium Phosphorus Magnesium Direct Bilirubin AST ALT Alkaline Phosphatase Lactate Dehydrogenase Troponin T C-Reactive Protein Total Protein Albumin Prealbumin Triglycerides Cholesterol LDL Cholesterol Direct HDL Cholesterol Urine pH Urine WBC (Auto) Urine Creatinine Urine Total Protein Fluid Total Protein Vancomycin Trough Rheumatoid Factor Complement C4 Miscellaneous Test Crossmatch 11/26/16 11/26/16 11/26/16 05:13 05:28 11:53 WBC RBC Hgb Hct MCV MCH MCHC RDW Plt Count Lymph % (Auto) [place] % (Auto) Lymph # [place] # Baso # Seg Neutrophils % Seg Neuts % (Manual) Lymphocytes % (Manual) Monocytes % (Manual) Eosinophils % (Manual) Basophils % (Manual) Nucleated RBC % Seg Neutrophils # Seg Neutrophils # Man Lymphocytes # (Manual) Monocytes # (Manual) Eosinophils # (Manual) PT INR Fibrinogen dRVVT Confirm Interp Factor V Activity POC ABG pH POC ABG pCO2 POC ABG pO2 ABG pO2 ABG HCO3 ABG Hemoglobin Oxyhemoglobin Sodium Potassium Chloride 97.8 L Carbon Dioxide BUN 37 H Creatinine 2.0 H Glucose 109 H POC Glucose 117 H 111 H Lactic Acid Calcium 7.9 L Phosphorus 1.80 L D Magnesium Direct Bilirubin AST ALT Alkaline Phosphatase Lactate Dehydrogenase Troponin T C-Reactive Protein Total Protein Albumin Prealbumin Triglycerides Cholesterol LDL Cholesterol Direct HDL Cholesterol Urine pH Urine WBC (Auto) Urine Creatinine Urine Total Protein Fluid Total Protein Vancomycin Trough Rheumatoid Factor Complement C4 Miscellaneous Test Crossmatch 11/26/16 11/27/16 11/27/16 17:14 04:50 06:02 WBC RBC Hgb Hct MCV MCH MCHC RDW Plt Count Lymph % (Auto) [place] % (Auto) Lymph # [place] # Baso # Seg Neutrophils % Seg Neuts % (Manual) Lymphocytes % (Manual) Monocytes % (Manual) Eosinophils % (Manual) Basophils % (Manual) Nucleated RBC % Seg Neutrophils # Seg Neutrophils # Man Lymphocytes # (Manual) Monocytes # (Manual) Eosinophils # (Manual) PT INR Fibrinogen dRVVT Confirm Interp Factor V Activity POC ABG pH POC ABG pCO2 POC ABG pO2 ABG pO2 75.2 L ABG HCO3 26.4 H ABG Hemoglobin 7.6 L Oxyhemoglobin 94.8 L Sodium Potassium Chloride Carbon Dioxide BUN 49 H Creatinine 2.3 H Glucose POC Glucose 115 H Lactic Acid Calcium Phosphorus 1.50 L Magnesium Direct Bilirubin AST ALT Alkaline Phosphatase Lactate Dehydrogenase Troponin T C-Reactive Protein Total Protein Albumin Prealbumin Triglycerides Cholesterol LDL Cholesterol Direct HDL Cholesterol Urine pH Urine WBC (Auto) Urine Creatinine Urine Total Protein Fluid Total Protein Vancomycin Trough Rheumatoid Factor Complement C4 Miscellaneous Test Crossmatch 11/27/16 11/27/16 11/27/16 06:02 11:25 17:25 WBC 11.6 H RBC 2.75 L Hgb 7.6 L Hct 23.4 L MCV MCH MCHC RDW 16.5 H Plt Count Lymph % (Auto) [place] % (Auto) Lymph # [place] # Baso # Seg Neutrophils % Seg Neuts % (Manual) Lymphocytes % (Manual) Monocytes % (Manual) Eosinophils % (Manual) Basophils % (Manual) Nucleated RBC % Seg Neutrophils # Seg Neutrophils # Man Lymphocytes # (Manual) Monocytes # (Manual) Eosinophils # (Manual) PT INR Fibrinogen dRVVT Confirm Interp Factor V Activity POC ABG pH POC ABG pCO2 POC ABG pO2 ABG pO2 ABG HCO3 ABG Hemoglobin Oxyhemoglobin Sodium Potassium Chloride Carbon Dioxide BUN Creatinine Glucose POC Glucose 114 H 126 H Lactic Acid Calcium Phosphorus Magnesium Direct Bilirubin AST ALT Alkaline Phosphatase Lactate Dehydrogenase Troponin T C-Reactive Protein Total Protein Albumin Prealbumin Triglycerides Cholesterol LDL Cholesterol Direct HDL Cholesterol Urine pH Urine WBC (Auto) Urine Creatinine Urine Total Protein Fluid Total Protein Vancomycin Trough Rheumatoid Factor Complement C4 Miscellaneous Test Crossmatch 11/28/16 11/28/16 11/28/16 04:45 05:33 05:44 WBC RBC Hgb Hct MCV MCH MCHC RDW Plt Count Lymph % (Auto) [place] % (Auto) Lymph # [place] # Baso # Seg Neutrophils % Seg Neuts % (Manual) Lymphocytes % (Manual) Monocytes % (Manual) Eosinophils % (Manual) Basophils % (Manual) Nucleated RBC % Seg Neutrophils # Seg Neutrophils # Man Lymphocytes # (Manual) Monocytes # (Manual) Eosinophils # (Manual) PT INR Fibrinogen dRVVT Confirm Interp Factor V Activity POC ABG pH POC ABG pCO2 POC ABG pO2 ABG pO2 99.3 H ABG HCO3 ABG Hemoglobin 8.3 L Oxyhemoglobin Sodium Potassium Chloride Carbon Dioxide BUN 63 H Creatinine 2.4 H Glucose 102 H POC Glucose 108 H Lactic Acid Calcium Phosphorus 1.80 L Magnesium Direct Bilirubin AST ALT Alkaline Phosphatase Lactate Dehydrogenase Troponin T C-Reactive Protein Total Protein Albumin Prealbumin Triglycerides Cholesterol LDL Cholesterol Direct HDL Cholesterol Urine pH Urine WBC (Auto) Urine Creatinine Urine Total Protein Fluid Total Protein Vancomycin Trough Rheumatoid Factor Complement C4 Miscellaneous Test Crossmatch 11/28/16 11/28/16 11/28/16 12:31 16:09 23:46 WBC RBC Hgb Hct MCV MCH MCHC RDW Plt Count Lymph % (Auto) [place] % (Auto) Lymph # [place] # Baso # Seg Neutrophils % Seg Neuts % (Manual) Lymphocytes % (Manual) Monocytes % (Manual) Eosinophils % (Manual) Basophils % (Manual) Nucleated RBC % Seg Neutrophils # Seg Neutrophils # Man Lymphocytes # (Manual) Monocytes # (Manual) Eosinophils # (Manual) PT INR Fibrinogen dRVVT Confirm Interp Factor V Activity POC ABG pH POC ABG pCO2 POC ABG pO2 ABG pO2 ABG HCO3 ABG Hemoglobin Oxyhemoglobin Sodium Potassium Chloride Carbon Dioxide BUN Creatinine Glucose POC Glucose 126 H 111 H 119 H Lactic Acid Calcium Phosphorus Magnesium Direct Bilirubin AST ALT Alkaline Phosphatase Lactate Dehydrogenase Troponin T C-Reactive Protein Total Protein Albumin Prealbumin Triglycerides Cholesterol LDL Cholesterol Direct HDL Cholesterol Urine pH Urine WBC (Auto) Urine Creatinine Urine Total Protein Fluid Total Protein Vancomycin Trough Rheumatoid Factor Complement C4 Miscellaneous Test Crossmatch 11/29/16 11/29/16 11/29/16 03:33 04:52 05:10 WBC RBC Hgb Hct MCV MCH MCHC RDW Plt Count Lymph % (Auto) [place] % (Auto) Lymph # [place] # Baso # Seg Neutrophils % Seg Neuts % (Manual) Lymphocytes % (Manual) Monocytes % (Manual) Eosinophils % (Manual) Basophils % (Manual) Nucleated RBC % Seg Neutrophils # Seg Neutrophils # Man Lymphocytes # (Manual) Monocytes # (Manual) Eosinophils # (Manual) PT INR Fibrinogen dRVVT Confirm Interp Factor V Activity POC ABG pH POC ABG pCO2 POC ABG pO2 ABG pO2 ABG HCO3 ABG Hemoglobin 7.0 L Oxyhemoglobin 94.9 L Sodium Potassium Chloride Carbon Dioxide BUN 73 H Creatinine 2.7 H Glucose POC Glucose 108 H Lactic Acid Calcium Phosphorus Magnesium Direct Bilirubin AST ALT Alkaline Phosphatase Lactate Dehydrogenase Troponin T C-Reactive Protein Total Protein Albumin Prealbumin Triglycerides Cholesterol LDL Cholesterol Direct HDL Cholesterol Urine pH Urine WBC (Auto) Urine Creatinine Urine Total Protein Fluid Total Protein Vancomycin Trough Rheumatoid Factor Complement C4 Miscellaneous Test Crossmatch Chest x-ray: image reviewed (stable bilateral pleural effusions and vascath in place) Allied health notes reviewed: RT
[2016-11-29] MEDS: HEPARIN IV PRN (13:19)
[2016-11-29] MEDS: TRANSDERM-SCOP TD SCH (13:20)
--- NOTE | 2016-11-29 15:51 | XRay Report ---
Single view chest: Compared to 11/28/16. History: Left arm PICC line placement. Findings: Borderline cardiomegaly. Stable support system. Bilateral pleural effusion. No consolidation. Impression: Cardiomegaly with bilateral pleural effusion.
--- NOTE | 2016-11-29 16:58 | Progress Note ---
Assessment and Plan Assessment and plan: Patient is 46-year-old woman with a history of hypertension, diabetes, asthma, hyperlipidemia, chronic kidney disease and anxiety , who was brought in by family because, she couldn't get her words out, her face was also twisted, she was admitted for acute CVA and accelerated hypertension, she had a hx of poor adherence with her medications, and uncontrolled htn. Patient's SBP on admission was noted be greater than 260. TPA was started but this was discontinued after 5 minutes because her blood pressure became uncontrolled. The TPA was not initiated again because the patient was outside the TPA window. Status post cardiac arrest , 11/21/16 - Received CPR and was resuscitated. Fever - resolved - Now on Vancomycin - s/p R thoracentesis on 11/14, 240cc of serous fluid removed, cx of fluid was negative - Stool negative for C. difficile Severe Sepsis with septic shock - Resolving Surgical wound infection/gram-negative sepsis/candidemia/peritonitis - PEG has been removed and pus is drained from the PEG site - Currently on tube feeding -continue wound care to ostomy sites JUANITA, ESRD - on HD per nephrology Acute CVA with infarct - Neurology input appreciated - CT shows continued evolution of left MCA infarct with slight mass effect and edema, and there is no hemorrhage - PRINCE showed hyperdynamic with ef of 75%, neither clot nor septal defect seen - MRA Brain shows near complete occlusion of M2 and M3 of the left MCA - Repeat CT scan done on 09/11, shows stable findings - carotid doppler negative - Echo shows preserved systolic function but does show some left ventricular diastolic dysfunction - continue asa and statin Persistent vegetative state - This patient's needs placement at SNF - She was denied for LTACH Acute hypoxic respiratory failure requiring MV >96hrs - Status post tracheostomy, was on T piece Nosocomial acquired aspiration pneumonia/sepsis/UTI - Recurrent - On vancomycin Asthma/COPD exacerbation - ON trach, mechanical ventilation Acute Toxic Metabolic encephalopathy. - Multitifactorial, mostly secondary to evolution of CVA Bilateral pleural effusion, s/p right thoracentesis 11/14 - fluid analysis cw transudate Paroxysmal atrial fibrillation with rapid ventricular rate and hyper-coaguable state - failed cardioversion - Continue current medications, Not a candidate for anticoagulation secondary to anemia, thrombocytopenia, and massive CVA Diabetes type 2. Continue sliding-scale regular insulin and Accu-Cheks. Hyperlipidemia. Continue statin Nutrition - continue tube feeds Anemia requiring multiple transfusions/acute blood loss - Has received total 14 units of PRBC this admission. Will continue to transfuse to keep Hemoglobin above 7 - Hemoglobin 7.6 yesterday Per the Counting Machine Operator patient's were explained the disease situation yesterday by Dr Lopez and they refused hospice. Have been explained by the hospitalist group and the online producer about the poor prognosis of the patient but the family said she may made it and refused. Will talk to them at the end of the week. Disposition. Very poor prognosis. The high probability of a clinically significant, sudden or life threatening deterioration of the [neurologic, CV] system(s) required my full and direct attention, intervention and personal management. The aggregate critical care time was [34] minutes. This time is in addition to time spent performing reported procedures but includes the following: [x] Data Review and interpretation [x] Patient assessment and monitoring of vital signs [x] Documentation [x] Medication orders and management History Interval history: Patient was seen and evaluated this morning, patient is in persistent vegetative state. 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 Hospitalist Physical - Physical exam Narrative exam: Patient is on mechanical ventilation Vital signs as documented. Head exam is unremarkable. No scleral icterus . Neck is without jugular venous distension, thyromegaly, or carotid bruits. Lungs are clear to auscultation. Cardiac exam reveals regular rate and Rhythm. First and second heart sounds normal. No murmurs, rubs or gallops. Abdominal exam reveals abscess draining from the PEG site, and multiple fistulas around the stomach. Extremities are nonedematous and both femoral and pedal pulses are normal. SENIOR MERCHANDISER: comatose - Constitutional Vitals: Temp Pulse Resp BP Pulse Ox 98.4 F 119 H 25 H 186/105 100 11/29/16 13:45 11/29/16 16:31 11/29/16 16:31 11/29/16 16:31 11/29/16 16:31 General appearance: Present: no acute distress Results - Labs CBC & Chem 7: 11/27/16 06:02 11/29/16 04:52 Labs: Laboratory Last Values WBC 11.6 K/mm3 (4.5-11.0) H 11/27/16 06:02 RBC 2.75 M/mm3 (3.65-5.03) L 11/27/16 06:02 Hgb 7.6 gm/dl (10.1-14.3) L 11/27/16 06:02 Hct 23.4 % (30.3-42.9) L 11/27/16 06:02 MCV 85 fl (79-97) 11/27/16 06:02 MCH 28 pg (28-32) 11/27/16 06:02 MCHC 33 % (30-34) 11/27/16 06:02 RDW 16.5 % (13.2-15.2) H 11/27/16 06:02 Plt Count 230 K/mm3 (140-440) 11/27/16 06:02 Lymph % (Auto) 17.0 % (13.4-35.0) 11/26/16 05:13 [place] % (Auto) 12.3 % (0.0-7.3) H 11/26/16 05:13 Eos % (Auto) 0.6 % (0.0-4.3) 11/26/16 05:13 Baso % (Auto) 0.4 % (0.0-1.8) 11/26/16 05:13 Lymph # 1.5 K/mm3 (1.2-5.4) 11/26/16 05:13 [place] # 1.1 K/mm3 (0.0-0.8) H 11/26/16 05:13 Eos # 0.1 K/mm3 (0.0-0.4) 11/26/16 05:13 Baso # 0.0 K/mm3 (0.0-0.1) 11/26/16 05:13 Add Manual Diff Complete 11/22/16 05:00 Total Counted 100 11/22/16 05:00 Seg Neutrophils % 69.7 % (40.0-70.0) 11/26/16 05:13 Seg Neuts % (Manual) 52.0 % (40.0-70.0) 11/22/16 05:00 Band Neutrophils % 37.0 % 11/22/16 05:00 Lymphocytes % (Manual) 7.0 % (13.4-35.0) L 11/22/16 05:00 Reactive Lymphs % (Man) 0 % 11/22/16 05:00 Monocytes % (Manual) 0 % (0.0-7.3) 11/22/16 05:00 Eosinophils % (Manual) 1.0 % (0.0-4.3) 11/22/16 05:00 Basophils % (Manual) 0 % (0.0-1.8) 11/21/16 07:45 Metamyelocytes % 1.0 % 11/22/16 05:00 Myelocytes % 2.0 % 11/22/16 05:00 Promyelocytes % 0 % 11/22/16 05:00 Blast Cells % 0 % 11/22/16 05:00 Nucleated RBC % Not Reportable 11/22/16 05:00 Seg Neutrophils # 6.3 K/mm3 (1.8-7.7) 11/26/16 05:13 Seg Neutrophils # Man 15.4 K/mm3 (1.8-7.7) H 11/22/16 05:00 Band Neutrophils # 11.0 K/mm3 11/22/16 05:00 Lymphocytes # (Manual) 2.1 K/mm3 (1.2-5.4) 11/22/16 05:00 Abs React Lymphs (Man) 0.0 K/mm3 11/22/16 05:00 Monocytes # (Manual) 0.0 K/mm3 (0.0-0.8) 11/22/16 05:00 Eosinophils # (Manual) 0.3 K/mm3 (0.0-0.4) 11/22/16 05:00 Basophils # (Manual) 0.0 K/mm3 (0.0-0.1) 11/22/16 05:00 Metamyelocytes # 0.3 K/mm3 11/22/16 05:00 Myelocytes # 0.6 K/mm3 11/22/16 05:00 Promyelocytes # 0.0 K/mm3 11/22/16 05:00 Blast Cells # 0.0 K/mm3 11/22/16 05:00 Pathologist Review 09/13/16 04:00 WBC Morphology Not Reportable 11/22/16 05:00 Hypersegmented Neuts Not Reportable 11/22/16 05:00 Hyposegmented Neuts Not Reportable 11/22/16 05:00 Hypogranular Neuts Not Reportable 11/22/16 05:00 Smudge Cells Not Reportable 11/22/16 05:00 Toxic Granulation Not Reportable 11/22/16 05:00 Toxic Vacuolation Not Reportable 11/22/16 05:00 Dohle Bodies Not Reportable 11/22/16 05:00 Pelger-Huet Anomaly Not Reportable 11/22/16 05:00 Jasmina Rods Not Reportable 11/22/16 05:00 Platelet Estimate Not Reportable 11/22/16 05:00 Clumped Platelets Not Reportable 11/22/16 05:00 Plt Clumps, EDTA Not Reportable 11/22/16 05:00 Large Platelets Not Reportable 11/22/16 05:00 Giant Platelets Not Reportable 11/22/16 05:00 Platelet Satelliting Not Reportable 11/22/16 05:00 Plt Morphology Comment Not Reportable 11/22/16 05:00 RBC Morphology Not Reportable 11/22/16 05:00 Dimorphic RBCs Not Reportable 11/22/16 05:00 Polychromasia Few 11/22/16 05:00 Hypochromasia Not Reportable 11/22/16 05:00 Poikilocytosis Not Reportable 11/22/16 05:00 Anisocytosis Not Reportable 11/22/16 05:00 Microcytosis Not Reportable 11/22/16 05:00 Macrocytosis Not Reportable 11/22/16 05:00 Spherocytes Not Reportable 11/22/16 05:00 Pappenheimer Bodies Not Reportable 11/22/16 05:00 Sickle Cells Not Reportable 11/22/16 05:00 Target Cells Not Reportable 11/22/16 05:00 Tear Drop Cells Not Reportable 11/22/16 05:00 Ovalocytes Not Reportable 11/22/16 05:00 Stomatocytes Few 10/06/16 03:50 Helmet Cells Not Reportable 11/22/16 05:00 [place] Bodies Not Reportable 11/22/16 05:00 [place] Rings Not Reportable 11/22/16 05:00 Alba Cells Not Reportable 11/22/16 05:00 Bite Cells Not Reportable 11/22/16 05:00 Crenated Cell Not Reportable 11/22/16 05:00 Elliptocytes Not Reportable 11/22/16 05:00 Acanthocytes (Spur) Not Reportable 11/22/16 05:00 Rouleaux Not Reportable 11/22/16 05:00 Hemoglobin C Crystals Not Reportable 11/22/16 05:00 Schistocytes Not Reportable 11/22/16 05:00 Malaria parasites Not Reportable 11/22/16 05:00 ESR > 140.0 mm/Hr (0-20) 09/08/16 11:48 Jun Bodies Not Reportable 11/22/16 05:00 Hem Pathologist Commnt No 11/22/16 05:00 PT 16.8 Sec. (12.2-14.9) H 11/17/16 03:20 INR 1.37 (0.87-1.13) H 11/17/16 03:20 APTT 33.0 Sec. (24.2-36.6) 10/09/16 03:45 Thrombin Time 16.8 Sec. (15.1-19.6) 09/03/16 00:10 Fibrinogen 750 mg/dl (211-480) H 09/08/16 11:48 Lupus Anticoagulant see below 09/12/16 09:59 LA PTT Baseline See scanned report 09/12/16 09:59 dRVVT Confirm Interp Positive (Negative) H 09/12/16 09:59 dRVVT Screen 50:50 See scanned report 09/12/16 09:59 dRVVT Mix Interpret See scanned report 09/12/16 09:59 Protein C Antigen 122 % (70-140) 09/08/16 15:35 Free Protein S 97 % normal (50-147) 09/08/16 15:35 Total Protein S 109 % (70-140) 09/08/16 15:35 Antithrombin III Ag 100 % (80-120) 09/08/16 15:35 Heparin Anti-Xa, Unfract Negative (Negative) 09/29/16 13:35 Factor V Activity 182 % (65-150) H 09/08/16 15:35 POC ABG pH 7.487 (7.35-7.45) H 11/25/16 14:12 ABG pH 7.405 pH Units (7.350-7.450) 11/29/16 03:33 POC ABG pCO2 39.0 (35-45) 11/25/16 14:12 ABG pCO2 39.6 mm Hg 11/29/16 03:33 POC ABG pO2 153 (80-105) H 11/25/16 14:12 ABG pO2 84.3 mm Hg (80.0-90.0) 11/29/16 03:33 POC ABG HCO3 29.5 11/25/16 14:12 ABG HCO3 24.2 mmol/L (20.0-26.0) 11/29/16 03:33 POC ABG Total CO2 31 11/25/16 14:12 POC ABG O2 Sat 99 11/25/16 14:12 ABG O2 Saturation 97.1 % (95.0-99.0) 11/29/16 03:33 ABG O2 Content 9.5 (0.0-44) 11/29/16 03:33 POC ABG Base Excess 6 11/25/16 14:12 ABG Base Excess -0.4 mmol/L (-2.0-3.0) 11/29/16 03:33 ABG Hemoglobin 7.0 gm/dl (12.0-16.0) L 11/29/16 03:33 ABG Carboxyhemoglobin 1.7 % (0.0-5.0) 11/29/16 03:33 ABG Methemoglobin 0.5 % (0.0-1.5) 11/29/16 03:33 Oxyhemoglobin 94.9 % (95.0-99.0) L 11/29/16 03:33 FiO2 28 % 11/29/16 03:33 Sodium 137 mmol/L (137-145) 11/29/16 04:52 Potassium 4.9 mmol/L (3.6-5.0) 11/29/16 04:52 Chloride 98.9 mmol/L (98-107) 11/29/16 04:52 Carbon Dioxide 23 mmol/L (22-30) 11/29/16 04:52 Anion Gap 20 mmol/L 11/29/16 04:52 BUN 73 mg/dL (7-17) H 11/29/16 04:52 Creatinine 2.7 mg/dL (0.7-1.2) H 11/29/16 04:52 Estimated GFR 23 ml/min 11/29/16 04:52 BUN/Creatinine Ratio 27 % 11/29/16 04:52 Glucose 99 mg/dL (65-100) 11/29/16 04:52 POC Glucose 133 (70-105) H 11/29/16 12:16 Osmolality 351 Mosm/kg 09/16/16 11:47 Lactic Acid 4.50 mmol/L (0.7-2.0) H* 09/28/16 07:25 Calcium 9.0 mg/dL (8.4-10.2) 11/29/16 04:52 Phosphorus 3.70 mg/dL (2.5-4.5) D 11/29/16 04:52 Magnesium 2.10 mg/dL (1.7-2.3) 11/29/16 04:52 Total Bilirubin 0.60 mg/dL (0.1-1.2) 11/25/16 04:42 Direct Bilirubin 0.3 mg/dL (0-0.2) H 10/10/16 05:00 Indirect Bilirubin 0.1 mg/dL 10/10/16 05:00 AST 19 units/L (5-40) 11/25/16 04:42 ALT 15 units/L (7-56) 11/25/16 04:42 Alkaline Phosphatase 142 units/L (35-129) H 11/25/16 04:42 Ammonia 27.0 umol/L (25-60) 09/07/16 08:37 Lactate Dehydrogenase 196 units/L (91-180) H 11/11/16 06:59 Total Creatine Kinase 121 units/L (30-135) 09/29/16 20:12 CK-MB (CK-2) < 1.0 ng/mL (0.0-4.0) 09/29/16 20:12 CK-MB (CK-2) Rel Index 0.8 (0-4) 09/29/16 20:12 Troponin T 0.204 ng/mL (0.00-0.029) H* 09/29/16 20:12 C-Reactive Protein 11.40 mg/dL (0.00-1.30) H 11/05/16 13:25 Total Protein 5.7 g/dL (6.3-8.2) L 11/25/16 04:42 Albumin 1.5 g/dL (3.9-5) L 11/25/16 04:42 Albumin/Globulin Ratio 0.4 % 11/25/16 04:42 Prealbumin 0.180 g/L (0.200-0.400) L 11/06/16 06:25 Triglycerides 137 mg/dL (2-149) 09/29/16 20:12 Cholesterol 31 mg/dL (50-199) L 09/29/16 20:12 LDL Cholesterol Direct 4 mg/dL (50-130) L 09/29/16 20:12 HDL Cholesterol 3 mg/dL (40-59) L 09/29/16 20:12 Cholesterol/HDL Ratio 10.33 % 09/29/16 20:12 Angiotensin Convert Enz See scanned report 09/08/16 11:48 Renin 0.99 ng/mL/h (0.25-5.82) 10/07/16 10:56 Aldosterone <1 ng/dL () 10/07/16 10:56 Aldosterone/Renin Dir see below 10/07/16 10:56 Serotonin Release Assay See scanned report 09/29/16 13:35 TSH 1.010 mlU/mL (0.270-4.200) 09/07/16 08:37 HCG, Qual Negative (Negative) 09/03/16 00:10 Urine Color Yellow (Yellow) 11/05/16 13:09 Urine Turbidity Clear (Clear) 11/05/16 13:09 Urine pH 9.0 (5.0-7.0) H 11/05/16 13:09 Ur Specific Simpson 1.011 (1.003-1.030) 11/05/16 13:09 Urine Protein 100 mg/dl mg/dL (Negative) 11/05/16 13:09 Urine Glucose (UA) Neg mg/dL (Negative) 11/05/16 13:09 Urine Ketones Neg mg/dL (Negative) 11/05/16 13:09 Urine Blood Neg (Negative) 11/05/16 13:09 Urine Nitrite Neg (Negative) 11/05/16 13:09 Urine Bilirubin Neg (Negative) 11/05/16 13:09 Urine Urobilinogen < 2.0 mg/dL (<2.0) 11/05/16 13:09 Ur Leukocyte Esterase Neg (Negative) 11/05/16 13:09 Urine WBC (Auto) 4.0 /HPF (0.0-6.0) 11/05/16 13:09 Urine RBC (Auto) 1.0 /HPF (0.0-6.0) 11/05/16 13:09 U Epithel Cells (Auto) 1.0 /HPF (0-13.0) 10/07/16 18:30 Urine Bacteria (Auto) 4+ /HPF (Negative) 11/05/16 13:09 Urine WBC Clumps 2+ /HPF 09/07/16 02:47 Hyaline Casts 4 /LPF 09/07/16 02:47 Urine Mucus Few /HPF 10/07/16 18:30 Urine Yeast (Budding) 3+ /HPF 10/07/16 18:30 Urine Eosinophils None seen (None Seen) 09/07/16 16:00 Urine Total Volume 950 11/12/16 10:18 Urine Creatinine 19.7 mg/dL (0.1-20.0) 11/12/16 10:18 Height (in) 65.0 inches 11/12/16 10:18 Weight (lb) 181.0 lbs 11/12/16 10:18 Creatinine Clearance 5 11/12/16 10:18 Urine Sodium 36 mEq/L 09/16/16 19:19 Urine Total Protein 16 mg/dL (5-11.8) H 09/16/16 19:19 Fluid Total Protein < 3.0 (15.0-45.0) L 11/10/16 14:20 Fluid LDH 123 11/10/16 14:20 Vancomycin Trough 2.3 ug/mL (5.0-20.0) L 09/21/16 13:00 Random Vancomycin 16.5 ug/mL (0-40.0) 11/28/16 09:45 Urine Opiates Screen Presumptive negative 09/03/16 15:11 Urine Methadone Screen Presumptive positive 09/03/16 15:11 Ur Barbiturates Screen Presumptive positive 09/03/16 15:11 Ur Phencyclidine Scrn Presumptive negative 09/03/16 15:11 Ur Amphetamines Screen Presumptive negative 09/03/16 15:11 U Benzodiazepines Scrn Presumptive negative 09/03/16 15:11 Urine Cocaine Screen Presumptive negative 09/03/16 15:11 U Marijuana (THC) Screen Presumptive positive 09/03/16 15:11 Drugs of Abuse Note Disclamer 09/03/16 15:11 Rheumatoid Factor 24 IU/ml (0-13) H 09/08/16 11:48 SAHIL Screen Negative (Negative) 09/07/16 09:20 Proteinase 3 (PR3) Ab <1.0 AI (<1.0) 09/07/16 09:20 Myeloperoxidase Ab <1.0 AI (<1.0) 09/07/16 09:20 Sjogren's Antibody <1.0 AI (<1.0) 09/08/16 15:35 Scl-70 Scleroderma Ab <1.0 AI (<1.0) 09/08/16 15:35 Centromere B Antibody <1.0 AI (<1.0) 09/08/16 12:02 Heparin-induced Plt Ab Negative (Negative) 09/29/16 13:35 UF Heparin High Dose 11 % Release 09/29/16 13:35 SUDHIR UFH Low Dose 0.1 6 % Release 09/29/16 13:35 SUDHIR UFH Low Dose 0.5 8 % Release 09/29/16 13:35 Cardiolipid IgG Ab <14 GPL (<=14) 09/12/16 09:59 Cardiolipid IgA Ab <11 APL (<=11) 09/12/16 09:59 Cardiolipid IgM Ab <12 MPL (<=12) 09/12/16 09:59 Complement C3 148 mg/dL (90-180) 09/07/16 09:20 Complement C4 58 mg/dL (16-47) H 09/07/16 09:20 RPR Nonreactive (Nonreactive) 09/08/16 11:48 Hepatitis A IgM Ab Non-reactive (NonReactive) 09/24/16 14:40 Hep Bs Antigen Non-reactive (Negative) 09/24/16 14:40 Hep B Core IgM Ab Non-reactive (NonReactive) 09/24/16 14:40 Hepatitis C Antibody Non-reactive (NonReactive) 09/24/16 14:40 HIV 1&2 Antibody Rapid Non react (Non React) 09/08/16 11:48 HIV P24 Antigen Non react (Non React) 09/08/16 11:48 Miscellaneous Test Flexitest 1 H 11/05/16 13:25 Blood Type A POSITIVE 11/24/16 11:20 Antibody Screen TNR 11/24/16 11:20 DELORIS Antibody Screen Negative 11/24/16 11:20 Crossmatch See Detail 11/24/16 11:20
[2016-11-29] MEDS ORDERED: VANCOMYCIN/NS 1 GM/250 ML 1 GM/250 ML BAG IV ONE (20:00)
[2016-11-29] MEDS ORDERED: TPN ADULT IV SCH (20:00)
[2016-11-30] MEDS: LOPRESSOR IV SCH ×3 (01:38→13:20)
[2016-11-30 05:04] LABS: Basophils % (Auto) 0.3 % (0.0-1.8); Eosinophils # (Auto) 0.1 K/mm3 (0.0-0.4); Hematocrit 23.6 % (30.3-42.9); Hemoglobin 7.8 gm/dl (10.1-14.3); Lymphocytes # (Auto) 2.3 K/mm3 (1.2-5.4); Lymphocytes % (Auto) 19.2 % (13.4-35.0); Mean Corpuscular HGB Conc 33 % (30-34); Mean Corpuscular Hemoglobin 28 pg (28-32); Mean Corpuscular Volume 84 fl (79-97); Monocytes # (Auto) 1.4 K/mm3 (0.0-0.8); Monocytes % (Auto) 11.3 % (0.0-7.3); Platelet Count 255 K/mm3 (140-440); Red Cell Distribution Width 16.6 % (13.2-15.2)
[2016-11-30 05:07] LABS: Calcium 10.3 mg/dL (8.4-10.2)
[2016-11-30] MEDS: HumuLIN R SUB-Q SCH ×4 (05:53→18:19)
[2016-11-30] MEDS: LASIX IV SCH ×2 (05:57→18:17)
[2016-11-30] MEDS: APRESOLINE IV SCH ×3 (05:58→18:17)
[2016-11-30 06:28] LABS: Calcium 8.5 mg/dL (8.4-10.2)
--- NOTE | 2016-11-30 08:22 | Progress Note ---
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 Will plan for HD tomorrow * UF as tolerated * Dose medications for renal function * Avoid potential nephrotoxins * Rate control per cardiology Subjective Date of service: 11/30/16 Principal diagnosis: Acute resp failure on MVS; S/P Acute CVA; Acute Encephalopathy; JUANITA Interval history: No acute events overnight. Objective - Vital Signs Vital signs: Vital Signs - 12hr 11/29/16 11/29/16 11/29/16 20:30 21:00 21:30 Temperature Pulse Rate 109 H 115 H 115 H Pulse Rate [ Right Dorsalis Pedis] Respiratory 23 30 H 25 H Rate Blood Pressure 169/94 166/98 168/96 O2 Sat by Pulse 100 100 100 Oximetry O2 Sat by Pulse Oximetry [ Assessment] 11/29/16 11/29/16 11/29/16 22:00 22:30 23:00 Temperature Pulse Rate 125 H 121 H 122 H Pulse Rate [ Right Dorsalis Pedis] Respiratory 26 H 28 H 16 Rate Blood Pressure 172/98 182/100 174/101 O2 Sat by Pulse 100 100 100 Oximetry O2 Sat by Pulse Oximetry [ Assessment] 11/29/16 11/29/16 11/29/16 23:06 23:23 23:30 Temperature 97.7 F Pulse Rate 126 H 122 H Pulse Rate [ Right Dorsalis Pedis] Respiratory 20 Rate Blood Pressure 174/101 155/97 O2 Sat by Pulse 98 100 Oximetry O2 Sat by Pulse Oximetry [ Assessment] 11/29/16 11/29/16 11/29/16 23:31 23:34 23:41 Temperature Pulse Rate 121 H 123 H Pulse Rate [ Right Dorsalis Pedis] Respiratory 19 Rate Blood Pressure 155/97 155/97 O2 Sat by Pulse 100 Oximetry O2 Sat by Pulse 98 Oximetry [ Assessment] 11/30/16 11/30/16 11/30/16 00:00 00:01 00:30 Temperature Pulse Rate 133 H 132 H Pulse Rate [ 123 H Right Dorsalis Pedis] Respiratory 24 17 Rate Blood Pressure 169/94 177/99 O2 Sat by Pulse 98 100 97 Oximetry O2 Sat by Pulse Oximetry [ Assessment] 11/30/16 11/30/16 11/30/16 01:00 01:30 01:38 Temperature Pulse Rate 136 H 129 H 135 H Pulse Rate [ Right Dorsalis Pedis] Respiratory 19 19 Rate Blood Pressure 171/94 162/98 163/98 O2 Sat by Pulse 97 93 Oximetry O2 Sat by Pulse Oximetry [ Assessment] 11/30/16 11/30/16 11/30/16 02:00 02:31 03:00 Temperature Pulse Rate 123 H 118 H 123 H Pulse Rate [ Right Dorsalis Pedis] Respiratory 13 16 18 Rate Blood Pressure 160/97 150/99 161/95 O2 Sat by Pulse 97 98 99 Oximetry O2 Sat by Pulse Oximetry [ Assessment] 11/30/16 11/30/16 11/30/16 03:12 03:31 04:00 Temperature 98.1 F Pulse Rate 126 H 126 H Pulse Rate [ 128 H Right Dorsalis Pedis] Respiratory 17 21 Rate Blood Pressure 161/95 155/89 O2 Sat by Pulse 99 100 99 Oximetry O2 Sat by Pulse Oximetry [ Assessment] 11/30/16 11/30/16 11/30/16 04:01 04:30 05:01 Temperature Pulse Rate 129 H 124 H 139 H Pulse Rate [ Right Dorsalis Pedis] Respiratory 15 16 25 H Rate Blood Pressure 168/99 175/100 180/88 O2 Sat by Pulse 99 100 95 Oximetry O2 Sat by Pulse Oximetry [ Assessment] 11/30/16 11/30/16 11/30/16 05:30 05:58 06:00 Temperature Pulse Rate 130 H 129 H 131 H Pulse Rate [ Right Dorsalis Pedis] Respiratory 19 20 Rate Blood Pressure 189/106 177/113 177/113 O2 Sat by Pulse 100 100 Oximetry O2 Sat by Pulse Oximetry [ Assessment] 11/30/16 11/30/16 11/30/16 06:30 07:00 07:30 Temperature Pulse Rate 124 H 125 H 122 H Pulse Rate [ Right Dorsalis Pedis] Respiratory 21 14 12 Rate Blood Pressure 155/91 148/104 133/81 O2 Sat by Pulse 100 100 100 Oximetry O2 Sat by Pulse Oximetry [ Assessment] 11/30/16 08:00 Temperature 98.4 F Pulse Rate 129 H Pulse Rate [ Right Dorsalis Pedis] Respiratory 20 Rate Blood Pressure 128/73 O2 Sat by Pulse 100 Oximetry O2 Sat by Pulse Oximetry [ Assessment] - General Appearance General appearance: well-developed EENT: ATNC Neck: other (trach collar) Respiratory: Present: Other (coarse BS) Cardiology: regular, S1S2 Gastrointestinal: no distended Musculoskeletal: other (trace edema) - Lab 11/30/16 04:17 11/30/16 05:45 Most recent lab results ABG pH 7.405 pH Units (7.350-7.450) 11/29/16 03:33 ABG pCO2 39.6 mm Hg 11/29/16 03:33 ABG pO2 84.3 mm Hg (80.0-90.0) 11/29/16 03:33 ABG HCO3 24.2 mmol/L (20.0-26.0) 11/29/16 03:33 ABG O2 Saturation 97.1 % (95.0-99.0) 11/29/16 03:33 Calcium 8.5 mg/dL (8.4-10.2) D 11/30/16 05:45 Phosphorus 4.10 mg/dL (2.5-4.5) 11/30/16 04:17 Magnesium 2.20 mg/dL (1.7-2.3) 11/30/16 04:17 Urine Creatinine 19.7 mg/dL (0.1-20.0) 11/12/16 10:18 Urine Sodium 36 mEq/L 09/16/16 19:19 Urine Total Protein 16 mg/dL (5-11.8) H 09/16/16 19:19
[2016-11-30] MEDS: HEPARIN SUB-Q SCH ×2 (09:01→22:40)
[2016-11-30] MEDS: PROTONIX IV SCH (09:01)
--- NOTE | 2016-11-30 09:48 | Progress Note ---
Assessment and Plan Assessment: 1) Recurrent SIRS: after recent code , likely from Enterococcal bacteremia from PICC line infection. 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 3) History of Candidemia: -Blood cultures positive for Silvia albicans on 09/23 -Blood cultures positive on 09/25 -Blood cultures negative on 09/30 -PICC line changed on 10/03 -Source ? gastric perf (PEG placed on 09/20) +/- TPN +/- central lines -TTE 10/07 no vegetations -PICC exchanged on 10/03 -fully treated with micafungin for 14 days last day 10/13 4) History CA-UTI s/p gutierrez exchanged 5) Diarrhea - ? etiology ? antibiotic-induced, not better. Multiple Cdiff negative 6) Initial presumed aspiration pneumonia 7) Respiratory failure s/p trach 8) Recent CVA-left MCA CVA 9) Uncontrolled HTN 10) Acute on CKD 11) Extensive back skin peeling ? burn from gastric secretions. Doubt allergic reaction - resolved 12) Severe anemia; ? from GI bleed 13) Recent abdominal wall abscess at surgical site-treated Plan: -continue vancomycin day 9 of 14 -monitor temperature and leukocytosis -LTAC referral Thank you Dr Foley for your consultation, will follow up with you. Pauline Carias MD Infectious Diseases Specialist [facility], [place], [facility] ([facility]) M [phone] O [phone] Subjective Date of service: 11/30/16 Principal diagnosis: Acute resp failure on MVS; S/P Acute CVA; Acute Encephalopathy; JUANITA Interval history: Interval history: No fever. Remains on vent via trach. 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 +NGT with greenish secretion Neck: +trach in place; supple, no thyromegaly or lymphadenopathy Lungs: brit coarse BS CV: tachycardic Abdomen: Soft, non-tender, +old PEG site no drainage. +iliostomy. Right sided Surgical site x 2 with ostomy bag draining large amount yellowish secretion Extremities: +peripheral edema no extremity lymphadenopathy Skin: sacral area wounds superficial no purulence Psych: somnolent . Neuro: alert non verbal on the vent. Lines: new PICC left arm 11/29 - Constitutional Vitals: Vital Signs Temp Pulse Resp BP Pulse Ox 98.4 F 126 H 20 156/93 100 11/30/16 08:00 11/30/16 09:00 11/30/16 08:00 11/30/16 09:00 11/30/16 08:00 Temperature -Last 24 Hours Temperature 98.4 F Temperature 98.1 F Temperature 97.7 F Temperature 97.9 F Temperature 98.4 F Temperature 98.4 F Temperature 98.3 F Temperature 99.4 F - Labs CBC & Chem 7: 11/30/16 04:17 11/30/16 05:45 Labs: Abnormal lab results 11/29/16 11/29/16 11/29/16 Range/Units 12:16 18:05 23:46 WBC (4.5-11.0) K/mm3 RBC (3.65-5.03) M/mm3 Hgb (10.1-14.3) gm/dl Hct (30.3-42.9) % RDW (13.2-15.2) % Amelia % (Auto) (0.0-7.3) % Amelia # (0.0-0.8) K/mm3 Seg Neutrophils # (1.8-7.7) K/mm3 Sodium (137-145) mmol/L Potassium (3.6-5.0) mmol/L Chloride (98-107) mmol/L BUN (7-17) mg/dL Creatinine (0.7-1.2) mg/dL Glucose (65-100) mg/dL POC Glucose 133 H 146 H 141 H (70-105) Calcium (8.4-10.2) mg/dL 11/30/16 11/30/16 11/30/16 Range/Units 04:17 04:17 04:32 WBC 12.0 H (4.5-11.0) K/mm3 RBC 2.80 L (3.65-5.03) M/mm3 Hgb 7.8 L (10.1-14.3) gm/dl Hct 23.6 L (30.3-42.9) % RDW 16.6 H (13.2-15.2) % Amelia % (Auto) 11.3 H (0.0-7.3) % Amelia # 1.4 H (0.0-0.8) K/mm3 Seg Neutrophils # 8.2 H (1.8-7.7) K/mm3 Sodium 169 H* D (137-145) mmol/L Potassium 5.1 H (3.6-5.0) mmol/L Chloride 121.5 H (98-107) mmol/L BUN 34 H (7-17) mg/dL Creatinine 1.3 H D (0.7-1.2) mg/dL Glucose 133 H (65-100) mg/dL POC Glucose 131 H (70-105) Calcium 10.3 H (8.4-10.2) mg/dL 11/30/16 Range/Units 05:45 WBC (4.5-11.0) K/mm3 RBC (3.65-5.03) M/mm3 Hgb (10.1-14.3) gm/dl Hct (30.3-42.9) % RDW (13.2-15.2) % Amelia % (Auto) (0.0-7.3) % Amelia # (0.0-0.8) K/mm3 Seg Neutrophils # (1.8-7.7) K/mm3 Sodium (137-145) mmol/L Potassium (3.6-5.0) mmol/L Chloride (98-107) mmol/L BUN 45 H (7-17) mg/dL Creatinine 1.6 H (0.7-1.2) mg/dL Glucose 131 H (65-100) mg/dL POC Glucose (70-105) Calcium (8.4-10.2) mg/dL
--- NOTE | 2016-11-30 11:31 | Progress Note ---
Assessment and Plan Acute Hypoxemic Respiratory Failure (now with exacerbation and back on MVS) Hypertension (unable to receive p.o. 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 better (re-ordered metoprolol as not on MAR) - discuss giving p.o. meds with surgery and if ok begin p.o. metoprolol +/- amlodipine - continue HD/UF per nephrology (received trial of lasix but may need UF ultimately) - continue to follow electrolytes and correct as necessary - continue TPN in short term till enteric fistula heals (surgery signed off) - continue GI & VTE prophylaxis - Continue flu & pneumovax per protocol ... remains critically ill on life sustaining interventions including MVS and at risk for further deterioration including ....30' CCT today without overlap Subjective Date of service: 11/30/16 Principal diagnosis: Acute resp failure on MVS; S/P Acute CVA; Acute Encephalopathy; JUANITA Interval history: Patient is seen today for: acute hypoxemic respiratory failure s/p tracheostomy and on MVS Seen and examined at bedside; 24hour events reviewed; nursing and respiratory care staff consulted; no adverse overnight events reported to me; on PSV and tolerating well at 10/5 settings; deo try T-piece later today; AMS is persistent otherwise; No emesis or overt aspiration; tachycardia is persistent despite scheduled IV metoprolol Objective Vital Signs - 12hr 11/29/16 11/29/16 11/30/16 23:34 23:41 00:00 Temperature Pulse Rate 123 H Pulse Rate [ From Monitor] Pulse Rate [ 123 H Right Dorsalis Pedis] Respiratory Rate Blood Pressure 155/97 O2 Sat by Pulse 98 Oximetry O2 Sat by Pulse 98 Oximetry [ Assessment] 11/30/16 11/30/16 11/30/16 00:01 00:30 01:00 Temperature Pulse Rate 133 H 132 H 136 H Pulse Rate [ From Monitor] Pulse Rate [ Right Dorsalis Pedis] Respiratory 24 17 19 Rate Blood Pressure 169/94 177/99 171/94 O2 Sat by Pulse 100 97 97 Oximetry O2 Sat by Pulse Oximetry [ Assessment] 11/30/16 11/30/16 11/30/16 01:30 01:38 02:00 Temperature Pulse Rate 129 H 135 H 123 H Pulse Rate [ From Monitor] Pulse Rate [ Right Dorsalis Pedis] Respiratory 19 13 Rate Blood Pressure 162/98 163/98 160/97 O2 Sat by Pulse 93 97 Oximetry O2 Sat by Pulse Oximetry [ Assessment] 11/30/16 11/30/16 11/30/16 02:31 03:00 03:12 Temperature Pulse Rate 118 H 123 H 126 H Pulse Rate [ From Monitor] Pulse Rate [ Right Dorsalis Pedis] Respiratory 16 18 Rate Blood Pressure 150/99 161/95 161/95 O2 Sat by Pulse 98 99 99 Oximetry O2 Sat by Pulse Oximetry [ Assessment] 11/30/16 11/30/16 11/30/16 03:31 04:00 04:01 Temperature 98.1 F Pulse Rate 126 H 129 H Pulse Rate [ From Monitor] Pulse Rate [ 128 H Right Dorsalis Pedis] Respiratory 17 21 15 Rate Blood Pressure 155/89 168/99 O2 Sat by Pulse 100 99 99 Oximetry O2 Sat by Pulse Oximetry [ Assessment] 11/30/16 11/30/16 11/30/16 04:30 05:01 05:30 Temperature Pulse Rate 124 H 139 H 130 H Pulse Rate [ From Monitor] Pulse Rate [ Right Dorsalis Pedis] Respiratory 16 25 H 19 Rate Blood Pressure 175/100 180/88 189/106 O2 Sat by Pulse 100 95 100 Oximetry O2 Sat by Pulse Oximetry [ Assessment] 11/30/16 11/30/16 11/30/16 05:58 06:00 06:30 Temperature Pulse Rate 129 H 131 H 124 H Pulse Rate [ From Monitor] Pulse Rate [ Right Dorsalis Pedis] Respiratory 20 21 Rate Blood Pressure 177/113 177/113 155/91 O2 Sat by Pulse 100 100 Oximetry O2 Sat by Pulse Oximetry [ Assessment] 11/30/16 11/30/16 11/30/16 07:00 07:30 08:00 Temperature 98.4 F Pulse Rate 125 H 122 H 119 H Pulse Rate [ 129 H From Monitor] Pulse Rate [ Right Dorsalis Pedis] Respiratory 14 12 20 Rate Blood Pressure 148/104 133/81 162/91 O2 Sat by Pulse 100 100 100 Oximetry O2 Sat by Pulse Oximetry [ Assessment] 11/30/16 11/30/16 11/30/16 08:30 09:00 09:30 Temperature Pulse Rate 127 H 129 H 113 H Pulse Rate [ From Monitor] Pulse Rate [ Right Dorsalis Pedis] Respiratory 20 26 H 16 Rate Blood Pressure 167/97 156/93 159/95 O2 Sat by Pulse 99 97 100 Oximetry O2 Sat by Pulse Oximetry [ Assessment] 11/30/16 11/30/16 10:00 10:30 Temperature Pulse Rate 117 H 122 H Pulse Rate [ From Monitor] Pulse Rate [ Right Dorsalis Pedis] Respiratory 22 24 Rate Blood Pressure 176/97 153/102 O2 Sat by Pulse 100 100 Oximetry O2 Sat by Pulse Oximetry [ Assessment] Constitutional: appears uncomfortable, other (eyes open but not tracking movements in room) Eyes: non-icteric, other (tracheostomy tube in midline of neck) ENT: oropharynx moist, oropharyngeal exudate pre Neck: supple, no lymphadenopathy, no JVD, other (no thyromegaly) Effort: mildly labored Ascultation: Bilateral: rhonchi (bases) Percussion: Bilateral: dull (bases) Cardiovascular: regular rate and rhythm, other (tachycardia improved but persistent on IV metoprolol) Gastrointestinal: hypoactive bowel sounds, soft, non-tender, non-distended, other (RLQ stomas with colostomy bags as well as LUQ over PEG stoma) Integumentary: rash (to legs), other (normal skin tugor; no tenting) Extremities: no cyanosis, pulses normal, no ischemia or petechiae, edema Neurologic: pupils equal and round, unable to assess, other (encephalopathic; PERRL) Psychiatric: other (unable to assess; not responsive) CBC and BMP: 12/01/16 03:35 12/01/16 03:35 ABG, PT/INR, D-dimer: ABG POC ABG pH 7.487 (7.35-7.45) H 11/25/16 14:12 ABG pH 7.405 pH Units (7.350-7.450) 11/29/16 03:33 POC ABG pCO2 39.0 (35-45) 11/25/16 14:12 ABG pCO2 39.6 mm Hg 11/29/16 03:33 POC ABG pO2 153 (80-105) H 11/25/16 14:12 ABG pO2 84.3 mm Hg (80.0-90.0) 11/29/16 03:33 POC ABG HCO3 29.5 11/25/16 14:12 POC ABG Total CO2 31 11/25/16 14:12 POC ABG O2 Sat 99 11/25/16 14:12 ABG O2 Saturation 97.1 % (95.0-99.0) 11/29/16 03:33 PT/INR, D-dimer PT 16.8 Sec. (12.2-14.9) H 11/17/16 03:20 INR 1.37 (0.87-1.13) H 11/17/16 03:20 Abnormal lab findings: Abnormal Labs 09/03/16 09/03/16 09/03/16 12:12 15:07 16:20 WBC RBC Hgb Hct MCV MCH MCHC RDW Plt Count Lymph % (Auto) [place] % (Auto) Lymph # [place] # Baso # Seg Neutrophils % Seg Neuts % (Manual) Lymphocytes % (Manual) Monocytes % (Manual) Eosinophils % (Manual) Basophils % (Manual) Nucleated RBC % Seg Neutrophils # Seg Neutrophils # Man Lymphocytes # (Manual) Monocytes # (Manual) Eosinophils # (Manual) PT INR Fibrinogen dRVVT Confirm Interp Factor V Activity POC ABG pH 7.452 H POC ABG pCO2 POC ABG pO2 ABG pO2 ABG HCO3 ABG Hemoglobin Oxyhemoglobin Sodium Potassium Chloride Carbon Dioxide BUN Creatinine Glucose POC Glucose 178 H Lactic Acid Calcium Phosphorus 2.20 L Magnesium 1.60 L Direct Bilirubin AST ALT Alkaline Phosphatase Lactate Dehydrogenase Troponin T C-Reactive Protein Total Protein Albumin Prealbumin Triglycerides Cholesterol LDL Cholesterol Direct HDL Cholesterol Urine pH Urine WBC (Auto) Urine Creatinine Urine Total Protein Fluid Total Protein Vancomycin Trough Rheumatoid Factor Complement C4 Miscellaneous Test Crossmatch 09/03/16 09/03/16 09/03/16 17:57 17:58 23:50 WBC RBC Hgb Hct MCV MCH MCHC RDW Plt Count Lymph % (Auto) [place] % (Auto) Lymph # [place] # Baso # Seg Neutrophils % Seg Neuts % (Manual) Lymphocytes % (Manual) Monocytes % (Manual) Eosinophils % (Manual) Basophils % (Manual) Nucleated RBC % Seg Neutrophils # Seg Neutrophils # Man Lymphocytes # (Manual) Monocytes # (Manual) Eosinophils # (Manual) PT INR Fibrinogen dRVVT Confirm Interp Factor V Activity POC ABG pH POC ABG pCO2 POC ABG pO2 ABG pO2 ABG HCO3 ABG Hemoglobin Oxyhemoglobin Sodium Potassium Chloride Carbon Dioxide BUN Creatinine Glucose POC Glucose 162 H 145 H Lactic Acid Calcium Phosphorus 2.30 L Magnesium Direct Bilirubin AST ALT Alkaline Phosphatase Lactate Dehydrogenase Troponin T C-Reactive Protein Total Protein Albumin Prealbumin Triglycerides Cholesterol LDL Cholesterol Direct HDL Cholesterol Urine pH Urine WBC (Auto) Urine Creatinine Urine Total Protein Fluid Total Protein Vancomycin Trough Rheumatoid Factor Complement C4 Miscellaneous Test Crossmatch 09/04/16 09/04/16 09/04/16 03:31 03:31 05:42 WBC RBC Hgb 9.7 L D Hct MCV 72 L MCH 23 L MCHC RDW 17.5 H Plt Count Lymph % (Auto) 11.1 L [place] % (Auto) Lymph # [place] # Baso # Seg Neutrophils % 84.3 H Seg Neuts % (Manual) Lymphocytes % (Manual) Monocytes % (Manual) Eosinophils % (Manual) Basophils % (Manual) Nucleated RBC % Seg Neutrophils # 8.9 H Seg Neutrophils # Man Lymphocytes # (Manual) Monocytes # (Manual) Eosinophils # (Manual) PT INR Fibrinogen dRVVT Confirm Interp Factor V Activity POC ABG pH POC ABG pCO2 POC ABG pO2 ABG pO2 ABG HCO3 ABG Hemoglobin Oxyhemoglobin Sodium 135 L Potassium 2.9 L* Chloride 97.2 L Carbon Dioxide 19 L BUN Creatinine 1.7 H Glucose 170 H POC Glucose 152 H Lactic Acid Calcium Phosphorus Magnesium Direct Bilirubin AST ALT Alkaline Phosphatase Lactate Dehydrogenase Troponin T C-Reactive Protein Total Protein Albumin Prealbumin Triglycerides 160 H Cholesterol LDL Cholesterol Direct HDL Cholesterol 31 L Urine pH Urine WBC (Auto) Urine Creatinine Urine Total Protein Fluid Total Protein Vancomycin Trough Rheumatoid Factor Complement C4 Miscellaneous Test Crossmatch 09/04/16 09/04/16 09/04/16 11:34 17:46 23:29 WBC RBC Hgb Hct MCV MCH MCHC RDW Plt Count Lymph % (Auto) [place] % (Auto) Lymph # [place] # Baso # Seg Neutrophils % Seg Neuts % (Manual) Lymphocytes % (Manual) Monocytes % (Manual) Eosinophils % (Manual) Basophils % (Manual) Nucleated RBC % Seg Neutrophils # Seg Neutrophils # Man Lymphocytes # (Manual) Monocytes # (Manual) Eosinophils # (Manual) PT INR Fibrinogen dRVVT Confirm Interp Factor V Activity POC ABG pH POC ABG pCO2 POC ABG pO2 ABG pO2 ABG HCO3 ABG Hemoglobin Oxyhemoglobin Sodium Potassium Chloride Carbon Dioxide BUN Creatinine Glucose POC Glucose 165 H 210 H 139 H Lactic Acid Calcium Phosphorus Magnesium Direct Bilirubin AST ALT Alkaline Phosphatase Lactate Dehydrogenase Troponin T C-Reactive Protein Total Protein Albumin Prealbumin Triglycerides Cholesterol LDL Cholesterol Direct HDL Cholesterol Urine pH Urine WBC (Auto) Urine Creatinine Urine Total Protein Fluid Total Protein Vancomycin Trough Rheumatoid Factor Complement C4 Miscellaneous Test Crossmatch 09/05/16 09/05/16 09/05/16 04:05 04:05 05:38 WBC RBC Hgb Hct MCV 76 L D MCH 23 L MCHC RDW 17.8 H Plt Count Lymph % (Auto) [place] % (Auto) Lymph # [place] # Baso # Seg Neutrophils % Seg Neuts % (Manual) Lymphocytes % (Manual) Monocytes % (Manual) Eosinophils % (Manual) Basophils % (Manual) Nucleated RBC % Seg Neutrophils # Seg Neutrophils # Man Lymphocytes # (Manual) Monocytes # (Manual) Eosinophils # (Manual) PT INR Fibrinogen dRVVT Confirm Interp Factor V Activity POC ABG pH POC ABG pCO2 POC ABG pO2 ABG pO2 ABG HCO3 ABG Hemoglobin Oxyhemoglobin Sodium 134 L Potassium Chloride Carbon Dioxide 18 L BUN Creatinine 1.8 H Glucose 192 H POC Glucose 175 H Lactic Acid Calcium Phosphorus Magnesium Direct Bilirubin AST ALT Alkaline Phosphatase Lactate Dehydrogenase Troponin T C-Reactive Protein Total Protein Albumin Prealbumin Triglycerides Cholesterol LDL Cholesterol Direct HDL Cholesterol Urine pH Urine WBC (Auto) Urine Creatinine Urine Total Protein Fluid Total Protein Vancomycin Trough Rheumatoid Factor Complement C4 Miscellaneous Test Crossmatch 09/05/16 09/05/16 09/05/16 11:38 17:48 23:22 WBC RBC Hgb Hct MCV MCH MCHC RDW Plt Count Lymph % (Auto) [place] % (Auto) Lymph # [place] # Baso # Seg Neutrophils % Seg Neuts % (Manual) Lymphocytes % (Manual) Monocytes % (Manual) Eosinophils % (Manual) Basophils % (Manual) Nucleated RBC % Seg Neutrophils # Seg Neutrophils # Man Lymphocytes # (Manual) Monocytes # (Manual) Eosinophils # (Manual) PT INR Fibrinogen dRVVT Confirm Interp Factor V Activity POC ABG pH POC ABG pCO2 POC ABG pO2 ABG pO2 ABG HCO3 ABG Hemoglobin Oxyhemoglobin Sodium Potassium Chloride Carbon Dioxide BUN Creatinine Glucose POC Glucose 164 H 186 H 195 H Lactic Acid Calcium Phosphorus Magnesium Direct Bilirubin AST ALT Alkaline Phosphatase Lactate Dehydrogenase Troponin T C-Reactive Protein Total Protein Albumin Prealbumin Triglycerides Cholesterol LDL Cholesterol Direct HDL Cholesterol Urine pH Urine WBC (Auto) Urine Creatinine Urine Total Protein Fluid Total Protein Vancomycin Trough Rheumatoid Factor Complement C4 Miscellaneous Test Crossmatch 09/06/16 09/06/16 09/06/16 04:12 05:59 07:32 WBC RBC Hgb Hct MCV MCH MCHC RDW Plt Count Lymph % (Auto) [place] % (Auto) Lymph # [place] # Baso # Seg Neutrophils % Seg Neuts % (Manual) Lymphocytes % (Manual) Monocytes % (Manual) Eosinophils % (Manual) Basophils % (Manual) Nucleated RBC % Seg Neutrophils # Seg Neutrophils # Man Lymphocytes # (Manual) Monocytes # (Manual) Eosinophils # (Manual) PT INR Fibrinogen dRVVT Confirm Interp Factor V Activity POC ABG pH 7.514 H POC ABG pCO2 29.1 L POC ABG pO2 72 L ABG pO2 ABG HCO3 ABG Hemoglobin Oxyhemoglobin Sodium 133 L Potassium 3.4 L Chloride 94.9 L Carbon Dioxide 19 L BUN 30 H Creatinine 2.1 H Glucose 139 H POC Glucose 146 H Lactic Acid Calcium Phosphorus Magnesium Direct Bilirubin AST ALT Alkaline Phosphatase Lactate Dehydrogenase Troponin T C-Reactive Protein Total Protein Albumin Prealbumin Triglycerides Cholesterol LDL Cholesterol Direct HDL Cholesterol Urine pH Urine WBC (Auto) Urine Creatinine Urine Total Protein Fluid Total Protein Vancomycin Trough Rheumatoid Factor Complement C4 Miscellaneous Test Crossmatch 09/06/16 09/06/16 09/06/16 11:57 17:58 19:02 WBC RBC Hgb Hct MCV MCH MCHC RDW Plt Count Lymph % (Auto) [place] % (Auto) Lymph # [place] # Baso # Seg Neutrophils % Seg Neuts % (Manual) Lymphocytes % (Manual) Monocytes % (Manual) Eosinophils % (Manual) Basophils % (Manual) Nucleated RBC % Seg Neutrophils # Seg Neutrophils # Man Lymphocytes # (Manual) Monocytes # (Manual) Eosinophils # (Manual) PT INR Fibrinogen dRVVT Confirm Interp Factor V Activity POC ABG pH 7.465 H POC ABG pCO2 32.0 L POC ABG pO2 ABG pO2 ABG HCO3 ABG Hemoglobin Oxyhemoglobin Sodium Potassium Chloride Carbon Dioxide BUN Creatinine Glucose POC Glucose 165 H 160 H Lactic Acid Calcium Phosphorus Magnesium Direct Bilirubin AST ALT Alkaline Phosphatase Lactate Dehydrogenase Troponin T C-Reactive Protein Total Protein Albumin Prealbumin Triglycerides Cholesterol LDL Cholesterol Direct HDL Cholesterol Urine pH Urine WBC (Auto) Urine Creatinine Urine Total Protein Fluid Total Protein Vancomycin Trough Rheumatoid Factor Complement C4 Miscellaneous Test Crossmatch 09/06/16 09/07/16 09/07/16 23:45 02:47 02:47 WBC RBC Hgb Hct MCV MCH MCHC RDW Plt Count Lymph % (Auto) [place] % (Auto) Lymph # [place] # Baso # Seg Neutrophils % Seg Neuts % (Manual) Lymphocytes % (Manual) Monocytes % (Manual) Eosinophils % (Manual) Basophils % (Manual) Nucleated RBC % Seg Neutrophils # Seg Neutrophils # Man Lymphocytes # (Manual) Monocytes # (Manual) Eosinophils # (Manual) PT INR Fibrinogen dRVVT Confirm Interp Factor V Activity POC ABG pH POC ABG pCO2 POC ABG pO2 ABG pO2 ABG HCO3 ABG Hemoglobin Oxyhemoglobin Sodium Potassium Chloride Carbon Dioxide BUN Creatinine Glucose POC Glucose 204 H Lactic Acid Calcium Phosphorus Magnesium Direct Bilirubin AST ALT Alkaline Phosphatase Lactate Dehydrogenase Troponin T C-Reactive Protein Total Protein Albumin Prealbumin Triglycerides Cholesterol LDL Cholesterol Direct HDL Cholesterol Urine pH Urine WBC (Auto) 68.0 H Urine Creatinine 106.1 H Urine Total Protein Fluid Total Protein Vancomycin Trough Rheumatoid Factor Complement C4 Miscellaneous Test Crossmatch 09/07/16 09/07/16 09/07/16 04:50 06:19 06:39 WBC RBC Hgb Hct MCV MCH MCHC RDW Plt Count Lymph % (Auto) [place] % (Auto) Lymph # [place] # Baso # Seg Neutrophils % Seg Neuts % (Manual) Lymphocytes % (Manual) Monocytes % (Manual) Eosinophils % (Manual) Basophils % (Manual) Nucleated RBC % Seg Neutrophils # Seg Neutrophils # Man Lymphocytes # (Manual) Monocytes # (Manual) Eosinophils # (Manual) PT INR Fibrinogen dRVVT Confirm Interp Factor V Activity POC ABG pH 7.457 H POC ABG pCO2 32.1 L POC ABG pO2 76 L ABG pO2 ABG HCO3 ABG Hemoglobin Oxyhemoglobin Sodium 132 L Potassium Chloride 94.7 L Carbon Dioxide BUN 53 H Creatinine 2.9 H Glucose 151 H POC Glucose 149 H Lactic Acid Calcium Phosphorus Magnesium Direct Bilirubin AST ALT Alkaline Phosphatase Lactate Dehydrogenase Troponin T C-Reactive Protein Total Protein Albumin Prealbumin Triglycerides Cholesterol LDL Cholesterol Direct HDL Cholesterol Urine pH Urine WBC (Auto) Urine Creatinine Urine Total Protein Fluid Total Protein Vancomycin Trough Rheumatoid Factor Complement C4 Miscellaneous Test Crossmatch 09/07/16 09/07/16 09/07/16 09:20 11:43 11:43 WBC 19.4 H RBC Hgb 8.3 L Hct 26.4 L D MCV 72 L D MCH 22 L MCHC RDW 17.9 H Plt Count Lymph % (Auto) 8.5 L [place] % (Auto) Lymph # [place] # 1.0 H Baso # Seg Neutrophils % 85.8 H Seg Neuts % (Manual) Lymphocytes % (Manual) Monocytes % (Manual) Eosinophils % (Manual) Basophils % (Manual) Nucleated RBC % Seg Neutrophils # 16.6 H Seg Neutrophils # Man Lymphocytes # (Manual) Monocytes # (Manual) Eosinophils # (Manual) PT INR Fibrinogen dRVVT Confirm Interp Factor V Activity POC ABG pH POC ABG pCO2 POC ABG pO2 ABG pO2 ABG HCO3 ABG Hemoglobin Oxyhemoglobin Sodium 134 L Potassium Chloride 97.2 L Carbon Dioxide 20 L BUN 58 H Creatinine 2.9 H Glucose 147 H POC Glucose Lactic Acid Calcium Phosphorus 2.40 L Magnesium 2.40 H Direct Bilirubin AST ALT Alkaline Phosphatase Lactate Dehydrogenase Troponin T C-Reactive Protein Total Protein 5.8 L Albumin 2.2 L Prealbumin Triglycerides Cholesterol LDL Cholesterol Direct HDL Cholesterol Urine pH Urine WBC (Auto) Urine Creatinine Urine Total Protein Fluid Total Protein Vancomycin Trough Rheumatoid Factor Complement C4 58 H Miscellaneous Test Crossmatch 09/07/16 09/07/16 09/07/16 11:50 16:00 17:31 WBC RBC Hgb Hct MCV MCH MCHC RDW Plt Count Lymph % (Auto) [place] % (Auto) Lymph # [place] # Baso # Seg Neutrophils % Seg Neuts % (Manual) Lymphocytes % (Manual) Monocytes % (Manual) Eosinophils % (Manual) Basophils % (Manual) Nucleated RBC % Seg Neutrophils # Seg Neutrophils # Man Lymphocytes # (Manual) Monocytes # (Manual) Eosinophils # (Manual) PT INR Fibrinogen dRVVT Confirm Interp Factor V Activity POC ABG pH POC ABG pCO2 POC ABG pO2 158 H ABG pO2 ABG HCO3 ABG Hemoglobin Oxyhemoglobin Sodium Potassium Chloride Carbon Dioxide BUN Creatinine Glucose POC Glucose 175 H Lactic Acid Calcium Phosphorus Magnesium Direct Bilirubin AST ALT Alkaline Phosphatase Lactate Dehydrogenase Troponin T C-Reactive Protein Total Protein Albumin Prealbumin Triglycerides Cholesterol LDL Cholesterol Direct HDL Cholesterol Urine pH Urine WBC (Auto) Urine Creatinine 66.3 H Urine Total Protein Fluid Total Protein Vancomycin Trough Rheumatoid Factor Complement C4 Miscellaneous Test Crossmatch 09/07/16 09/08/16 09/08/16 23:50 05:46 06:18 WBC 17.8 H RBC 3.58 L Hgb 8.1 L Hct 25.5 L MCV 71 L MCH 23 L MCHC RDW 18.4 H Plt Count Lymph % (Auto) [place] % (Auto) Lymph # [place] # Baso # Seg Neutrophils % Seg Neuts % (Manual) 92.0 H Lymphocytes % (Manual) 6.0 L Monocytes % (Manual) Eosinophils % (Manual) Basophils % (Manual) Nucleated RBC % Seg Neutrophils # Seg Neutrophils # Man 16.4 H Lymphocytes # (Manual) 1.1 L Monocytes # (Manual) Eosinophils # (Manual) PT INR Fibrinogen dRVVT Confirm Interp Factor V Activity POC ABG pH POC ABG pCO2 34.3 L POC ABG pO2 71 L ABG pO2 ABG HCO3 ABG Hemoglobin Oxyhemoglobin Sodium Potassium Chloride Carbon Dioxide BUN Creatinine Glucose POC Glucose 216 H Lactic Acid Calcium Phosphorus Magnesium Direct Bilirubin AST ALT Alkaline Phosphatase Lactate Dehydrogenase Troponin T C-Reactive Protein Total Protein Albumin Prealbumin Triglycerides Cholesterol LDL Cholesterol Direct HDL Cholesterol Urine pH Urine WBC (Auto) Urine Creatinine Urine Total Protein Fluid Total Protein Vancomycin Trough Rheumatoid Factor Complement C4 Miscellaneous Test Crossmatch 09/08/16 09/08/16 09/08/16 06:18 06:51 10:55 WBC RBC Hgb Hct MCV MCH MCHC RDW Plt Count Lymph % (Auto) [place] % (Auto) Lymph # [place] # Baso # Seg Neutrophils % Seg Neuts % (Manual) Lymphocytes % (Manual) Monocytes % (Manual) Eosinophils % (Manual) Basophils % (Manual) Nucleated RBC % Seg Neutrophils # Seg Neutrophils # Man Lymphocytes # (Manual) Monocytes # (Manual) Eosinophils # (Manual) PT INR Fibrinogen dRVVT Confirm Interp Factor V Activity POC ABG pH POC ABG pCO2 POC ABG pO2 ABG pO2 ABG HCO3 ABG Hemoglobin Oxyhemoglobin Sodium 133 L Potassium Chloride 96.9 L Carbon Dioxide 20 L BUN 63 H Creatinine 2.7 H Glucose 195 H POC Glucose 204 H 169 H Lactic Acid Calcium Phosphorus Magnesium Direct Bilirubin AST ALT Alkaline Phosphatase Lactate Dehydrogenase Troponin T C-Reactive Protein Total Protein Albumin Prealbumin Triglycerides Cholesterol LDL Cholesterol Direct HDL Cholesterol Urine pH Urine WBC (Auto) Urine Creatinine Urine Total Protein Fluid Total Protein Vancomycin Trough Rheumatoid Factor Complement C4 Miscellaneous Test Crossmatch 09/08/16 09/08/16 09/08/16 11:48 11:48 11:48 WBC RBC Hgb Hct MCV MCH MCHC RDW Plt Count Lymph % (Auto) [place] % (Auto) Lymph # [place] # Baso # Seg Neutrophils % Seg Neuts % (Manual) Lymphocytes % (Manual) Monocytes % (Manual) Eosinophils % (Manual) Basophils % (Manual) Nucleated RBC % Seg Neutrophils # Seg Neutrophils # Man Lymphocytes # (Manual) Monocytes # (Manual) Eosinophils # (Manual) PT INR Fibrinogen 750 H dRVVT Confirm Interp Factor V Activity POC ABG pH POC ABG pCO2 POC ABG pO2 ABG pO2 ABG HCO3 ABG Hemoglobin Oxyhemoglobin Sodium Potassium Chloride Carbon Dioxide BUN Creatinine Glucose POC Glucose Lactic Acid Calcium Phosphorus Magnesium Direct Bilirubin AST ALT Alkaline Phosphatase Lactate Dehydrogenase Troponin T C-Reactive Protein 15.70 H Total Protein Albumin Prealbumin Triglycerides Cholesterol LDL Cholesterol Direct HDL Cholesterol Urine pH Urine WBC (Auto) Urine Creatinine Urine Total Protein Fluid Total Protein Vancomycin Trough Rheumatoid Factor 24 H Complement C4 Miscellaneous Test Crossmatch 09/08/16 09/08/16 09/09/16 15:35 18:25 00:24 WBC RBC Hgb Hct MCV MCH MCHC RDW Plt Count Lymph % (Auto) [place] % (Auto) Lymph # [place] # Baso # Seg Neutrophils % Seg Neuts % (Manual) Lymphocytes % (Manual) Monocytes % (Manual) Eosinophils % (Manual) Basophils % (Manual) Nucleated RBC % Seg Neutrophils # Seg Neutrophils # Man Lymphocytes # (Manual) Monocytes # (Manual) Eosinophils # (Manual) PT INR Fibrinogen dRVVT Confirm Interp Factor V Activity 182 H POC ABG pH POC ABG pCO2 POC ABG pO2 ABG pO2 ABG HCO3 ABG Hemoglobin Oxyhemoglobin Sodium Potassium Chloride Carbon Dioxide BUN Creatinine Glucose POC Glucose 184 H 216 H Lactic Acid Calcium Phosphorus Magnesium Direct Bilirubin AST ALT Alkaline Phosphatase Lactate Dehydrogenase Troponin T C-Reactive Protein Total Protein Albumin Prealbumin Triglycerides Cholesterol LDL Cholesterol Direct HDL Cholesterol Urine pH Urine WBC (Auto) Urine Creatinine Urine Total Protein Fluid Total Protein Vancomycin Trough Rheumatoid Factor Complement C4 Miscellaneous Test Crossmatch 09/09/16 09/09/16 09/09/16 03:00 03:00 04:04 WBC 27.9 H RBC Hgb 8.7 L Hct 28.1 L MCV 72 L MCH 22 L MCHC RDW 18.4 H Plt Count 485 H Lymph % (Auto) [place] % (Auto) Lymph # [place] # Baso # Seg Neutrophils % Seg Neuts % (Manual) 77.0 H Lymphocytes % (Manual) 9.0 L Monocytes % (Manual) Eosinophils % (Manual) Basophils % (Manual) Nucleated RBC % Seg Neutrophils # Seg Neutrophils # Man 21.5 H Lymphocytes # (Manual) Monocytes # (Manual) 2.0 H Eosinophils # (Manual) PT INR Fibrinogen dRVVT Confirm Interp Factor V Activity POC ABG pH POC ABG pCO2 POC ABG pO2 121 H ABG pO2 ABG HCO3 ABG Hemoglobin Oxyhemoglobin Sodium 135 L Potassium Chloride 96.3 L Carbon Dioxide 21 L BUN 83 H Creatinine 3.0 H Glucose 135 H POC Glucose Lactic Acid Calcium Phosphorus Magnesium Direct Bilirubin AST ALT Alkaline Phosphatase Lactate Dehydrogenase Troponin T C-Reactive Protein Total Protein Albumin Prealbumin Triglycerides Cholesterol LDL Cholesterol Direct HDL Cholesterol Urine pH Urine WBC (Auto) Urine Creatinine Urine Total Protein Fluid Total Protein Vancomycin Trough Rheumatoid Factor Complement C4 Miscellaneous Test Crossmatch 09/09/16 09/09/16 09/09/16 05:41 11:55 14:13 WBC RBC Hgb Hct MCV MCH MCHC RDW Plt Count Lymph % (Auto) [place] % (Auto) Lymph # [place] # Baso # Seg Neutrophils % Seg Neuts % (Manual) Lymphocytes % (Manual) Monocytes % (Manual) Eosinophils % (Manual) Basophils % (Manual) Nucleated RBC % Seg Neutrophils # Seg Neutrophils # Man Lymphocytes # (Manual) Monocytes # (Manual) Eosinophils # (Manual) PT INR Fibrinogen dRVVT Confirm Interp Factor V Activity POC ABG pH POC ABG pCO2 POC ABG pO2 ABG pO2 ABG HCO3 ABG Hemoglobin Oxyhemoglobin Sodium Potassium Chloride Carbon Dioxide BUN Creatinine Glucose POC Glucose 155 H 186 H Lactic Acid Calcium Phosphorus Magnesium Direct Bilirubin AST ALT Alkaline Phosphatase Lactate Dehydrogenase Troponin T C-Reactive Protein Total Protein Albumin Prealbumin Triglycerides Cholesterol LDL Cholesterol Direct HDL Cholesterol Urine pH Urine WBC (Auto) 25.0 H Urine Creatinine Urine Total Protein Fluid Total Protein Vancomycin Trough Rheumatoid Factor Complement C4 Miscellaneous Test Crossmatch 09/09/16 09/09/16 09/10/16 17:33 23:13 05:09 WBC RBC Hgb Hct MCV MCH MCHC RDW Plt Count Lymph % (Auto) [place] % (Auto) Lymph # [place] # Baso # Seg Neutrophils % Seg Neuts % (Manual) Lymphocytes % (Manual) Monocytes % (Manual) Eosinophils % (Manual) Basophils % (Manual) Nucleated RBC % Seg Neutrophils # Seg Neutrophils # Man Lymphocytes # (Manual) Monocytes # (Manual) Eosinophils # (Manual) PT INR Fibrinogen dRVVT Confirm Interp Factor V Activity POC ABG pH POC ABG pCO2 POC ABG pO2 74 L ABG pO2 ABG HCO3 ABG Hemoglobin Oxyhemoglobin Sodium Potassium Chloride Carbon Dioxide BUN Creatinine Glucose POC Glucose 211 H 215 H Lactic Acid Calcium Phosphorus Magnesium Direct Bilirubin AST ALT Alkaline Phosphatase Lactate Dehydrogenase Troponin T C-Reactive Protein Total Protein Albumin Prealbumin Triglycerides Cholesterol LDL Cholesterol Direct HDL Cholesterol Urine pH Urine WBC (Auto) Urine Creatinine Urine Total Protein Fluid Total Protein Vancomycin Trough Rheumatoid Factor Complement C4 Miscellaneous Test Crossmatch 09/10/16 09/10/16 09/10/16 05:17 05:17 11:31 WBC 15.8 H RBC 3.25 L Hgb 7.3 L Hct 22.9 L MCV 71 L MCH 23 L MCHC RDW 18.4 H Plt Count Lymph % (Auto) [place] % (Auto) Lymph # [place] # Baso # Seg Neutrophils % Seg Neuts % (Manual) 91.0 H Lymphocytes % (Manual) 4.0 L Monocytes % (Manual) Eosinophils % (Manual) Basophils % (Manual) Nucleated RBC % Seg Neutrophils # Seg Neutrophils # Man 14.4 H Lymphocytes # (Manual) 0.6 L Monocytes # (Manual) Eosinophils # (Manual) PT INR Fibrinogen dRVVT Confirm Interp Factor V Activity POC ABG pH POC ABG pCO2 POC ABG pO2 ABG pO2 ABG HCO3 ABG Hemoglobin Oxyhemoglobin Sodium Potassium Chloride Carbon Dioxide 21 L BUN 93 H Creatinine 2.9 H Glucose 146 H POC Glucose 188 H Lactic Acid Calcium 8.1 L Phosphorus Magnesium Direct Bilirubin AST ALT Alkaline Phosphatase Lactate Dehydrogenase Troponin T C-Reactive Protein Total Protein Albumin Prealbumin Triglycerides Cholesterol LDL Cholesterol Direct HDL Cholesterol Urine pH Urine WBC (Auto) Urine Creatinine Urine Total Protein Fluid Total Protein Vancomycin Trough Rheumatoid Factor Complement C4 Miscellaneous Test Crossmatch 09/10/16 09/10/16 09/10/16 13:17 17:20 23:32 WBC RBC Hgb Hct MCV MCH MCHC RDW Plt Count Lymph % (Auto) [place] % (Auto) Lymph # [place] # Baso # Seg Neutrophils % Seg Neuts % (Manual) Lymphocytes % (Manual) Monocytes % (Manual) Eosinophils % (Manual) Basophils % (Manual) Nucleated RBC % Seg Neutrophils # Seg Neutrophils # Man Lymphocytes # (Manual) Monocytes # (Manual) Eosinophils # (Manual) PT INR Fibrinogen dRVVT Confirm Interp Factor V Activity POC ABG pH POC ABG pCO2 POC ABG pO2 ABG pO2 ABG HCO3 ABG Hemoglobin Oxyhemoglobin Sodium Potassium Chloride Carbon Dioxide BUN Creatinine Glucose POC Glucose 199 H 186 H Lactic Acid Calcium Phosphorus Magnesium Direct Bilirubin AST ALT Alkaline Phosphatase Lactate Dehydrogenase Troponin T C-Reactive Protein Total Protein Albumin Prealbumin Triglycerides Cholesterol LDL Cholesterol Direct HDL Cholesterol Urine pH Urine WBC (Auto) Urine Creatinine Urine Total Protein Fluid Total Protein Vancomycin Trough Rheumatoid Factor Complement C4 Miscellaneous Test Crossmatch See Detail 09/11/16 09/11/16 09/11/16 05:10 05:10 05:17 WBC 28.4 H RBC Hgb 9.2 L Hct 29.3 L D MCV 73 L MCH 23 L MCHC RDW 18.9 H Plt Count 452 H Lymph % (Auto) [place] % (Auto) Lymph # [place] # Baso # Seg Neutrophils % Seg Neuts % (Manual) 89.5 H Lymphocytes % (Manual) 2.0 L Monocytes % (Manual) Eosinophils % (Manual) Basophils % (Manual) Nucleated RBC % Seg Neutrophils # Seg Neutrophils # Man 25.4 H Lymphocytes # (Manual) 0.6 L Monocytes # (Manual) 1.3 H Eosinophils # (Manual) PT INR Fibrinogen dRVVT Confirm Interp Factor V Activity POC ABG pH POC ABG pCO2 POC ABG pO2 ABG pO2 ABG HCO3 ABG Hemoglobin Oxyhemoglobin Sodium 136 L Potassium Chloride Carbon Dioxide 18 L BUN 107 H Creatinine 2.6 H Glucose 187 H POC Glucose 230 H Lactic Acid Calcium 8.3 L Phosphorus Magnesium Direct Bilirubin AST ALT Alkaline Phosphatase Lactate Dehydrogenase Troponin T C-Reactive Protein Total Protein Albumin Prealbumin Triglycerides Cholesterol LDL Cholesterol Direct HDL Cholesterol Urine pH Urine WBC (Auto) Urine Creatinine Urine Total Protein Fluid Total Protein Vancomycin Trough Rheumatoid Factor Complement C4 Miscellaneous Test Crossmatch 09/11/16 09/11/16 09/11/16 05:55 12:02 17:32 WBC RBC Hgb Hct MCV MCH MCHC RDW Plt Count Lymph % (Auto) [place] % (Auto) Lymph # [place] # Baso # Seg Neutrophils % Seg Neuts % (Manual) Lymphocytes % (Manual) Monocytes % (Manual) Eosinophils % (Manual) Basophils % (Manual) Nucleated RBC % Seg Neutrophils # Seg Neutrophils # Man Lymphocytes # (Manual) Monocytes # (Manual) Eosinophils # (Manual) PT INR Fibrinogen dRVVT Confirm Interp Factor V Activity POC ABG pH POC ABG pCO2 33.8 L POC ABG pO2 ABG pO2 ABG HCO3 ABG Hemoglobin Oxyhemoglobin Sodium Potassium Chloride Carbon Dioxide BUN Creatinine Glucose POC Glucose 191 H 239 H Lactic Acid Calcium Phosphorus Magnesium Direct Bilirubin AST ALT Alkaline Phosphatase Lactate Dehydrogenase Troponin T C-Reactive Protein Total Protein Albumin Prealbumin Triglycerides Cholesterol LDL Cholesterol Direct HDL Cholesterol Urine pH Urine WBC (Auto) Urine Creatinine Urine Total Protein Fluid Total Protein Vancomycin Trough Rheumatoid Factor Complement C4 Miscellaneous Test Crossmatch 09/11/16 09/12/16 09/12/16 23:52 05:09 05:32 WBC RBC Hgb Hct MCV MCH MCHC RDW Plt Count Lymph % (Auto) [place] % (Auto) Lymph # [place] # Baso # Seg Neutrophils % Seg Neuts % (Manual) Lymphocytes % (Manual) Monocytes % (Manual) Eosinophils % (Manual) Basophils % (Manual) Nucleated RBC % Seg Neutrophils # Seg Neutrophils # Man Lymphocytes # (Manual) Monocytes # (Manual) Eosinophils # (Manual) PT INR Fibrinogen dRVVT Confirm Interp Factor V Activity POC ABG pH POC ABG pCO2 34.6 L POC ABG pO2 ABG pO2 ABG HCO3 ABG Hemoglobin Oxyhemoglobin Sodium Potassium Chloride Carbon Dioxide BUN Creatinine Glucose POC Glucose 265 H 184 H Lactic Acid Calcium Phosphorus Magnesium Direct Bilirubin AST ALT Alkaline Phosphatase Lactate Dehydrogenase Troponin T C-Reactive Protein Total Protein Albumin Prealbumin Triglycerides Cholesterol LDL Cholesterol Direct HDL Cholesterol Urine pH Urine WBC (Auto) Urine Creatinine Urine Total Protein Fluid Total Protein Vancomycin Trough Rheumatoid Factor Complement C4 Miscellaneous Test Crossmatch 09/12/16 09/12/16 09/12/16 06:45 06:45 07:22 WBC 31.7 H RBC 3.54 L Hgb 8.3 L Hct 25.9 L MCV 73 L MCH 23 L MCHC RDW 18.9 H Plt Count Lymph % (Auto) [place] % (Auto) Lymph # [place] # Baso # Seg Neutrophils % Seg Neuts % (Manual) 88.5 H Lymphocytes % (Manual) 4.5 L Monocytes % (Manual) Eosinophils % (Manual) Basophils % (Manual) Nucleated RBC % Seg Neutrophils # Seg Neutrophils # Man 28.1 H Lymphocytes # (Manual) Monocytes # (Manual) 1.0 H Eosinophils # (Manual) PT INR Fibrinogen dRVVT Confirm Interp Factor V Activity POC ABG pH POC ABG pCO2 POC ABG pO2 ABG pO2 ABG HCO3 ABG Hemoglobin Oxyhemoglobin Sodium Potassium Chloride Carbon Dioxide 20 L BUN 115 H Creatinine 2.7 H Glucose 165 H POC Glucose Lactic Acid Calcium 8.0 L Phosphorus Magnesium Direct Bilirubin AST ALT Alkaline Phosphatase Lactate Dehydrogenase Troponin T C-Reactive Protein Total Protein Albumin Prealbumin Triglycerides 217 H Cholesterol LDL Cholesterol Direct HDL Cholesterol Urine pH Urine WBC (Auto) Urine Creatinine Urine Total Protein Fluid Total Protein Vancomycin Trough Rheumatoid Factor Complement C4 Miscellaneous Test Crossmatch 09/12/16 09/12/16 09/12/16 07:22 09:59 12:21 WBC RBC Hgb Hct MCV MCH MCHC RDW Plt Count Lymph % (Auto) [place] % (Auto) Lymph # [place] # Baso # Seg Neutrophils % Seg Neuts % (Manual) Lymphocytes % (Manual) Monocytes % (Manual) Eosinophils % (Manual) Basophils % (Manual) Nucleated RBC % Seg Neutrophils # Seg Neutrophils # Man Lymphocytes # (Manual) Monocytes # (Manual) Eosinophils # (Manual) PT INR Fibrinogen dRVVT Confirm Interp Positive H Factor V Activity POC ABG pH POC ABG pCO2 POC ABG pO2 ABG pO2 ABG HCO3 ABG Hemoglobin Oxyhemoglobin Sodium Potassium Chloride Carbon Dioxide BUN Creatinine Glucose POC Glucose 224 H Lactic Acid Calcium Phosphorus Magnesium Direct Bilirubin AST ALT Alkaline Phosphatase Lactate Dehydrogenase Troponin T C-Reactive Protein 1.70 H Total Protein Albumin Prealbumin Triglycerides Cholesterol LDL Cholesterol Direct HDL Cholesterol Urine pH Urine WBC (Auto) Urine Creatinine Urine Total Protein Fluid Total Protein Vancomycin Trough Rheumatoid Factor Complement C4 Miscellaneous Test Crossmatch 09/12/16 09/12/16 09/13/16 16:51 23:28 04:00 WBC 45.0 H* RBC Hgb 9.4 L Hct MCV 75 L MCH 23 L MCHC RDW 19.0 H Plt Count 470 H Lymph % (Auto) [place] % (Auto) Lymph # [place] # Baso # Seg Neutrophils % Seg Neuts % (Manual) 89.0 H Lymphocytes % (Manual) 5.0 L Monocytes % (Manual) Eosinophils % (Manual) Basophils % (Manual) Nucleated RBC % Seg Neutrophils # Seg Neutrophils # Man 40.1 H Lymphocytes # (Manual) Monocytes # (Manual) Eosinophils # (Manual) PT INR Fibrinogen dRVVT Confirm Interp Factor V Activity POC ABG pH POC ABG pCO2 POC ABG pO2 ABG pO2 ABG HCO3 ABG Hemoglobin Oxyhemoglobin Sodium Potassium Chloride Carbon Dioxide BUN Creatinine Glucose POC Glucose 169 H 150 H Lactic Acid Calcium Phosphorus Magnesium Direct Bilirubin AST ALT Alkaline Phosphatase Lactate Dehydrogenase Troponin T C-Reactive Protein Total Protein Albumin Prealbumin Triglycerides Cholesterol LDL Cholesterol Direct HDL Cholesterol Urine pH Urine WBC (Auto) Urine Creatinine Urine Total Protein Fluid Total Protein Vancomycin Trough Rheumatoid Factor Complement C4 Miscellaneous Test Crossmatch 09/13/16 09/13/16 09/13/16 04:00 11:26 17:31 WBC RBC Hgb Hct MCV MCH MCHC RDW Plt Count Lymph % (Auto) [place] % (Auto) Lymph # [place] # Baso # Seg Neutrophils % Seg Neuts % (Manual) Lymphocytes % (Manual) Monocytes % (Manual) Eosinophils % (Manual) Basophils % (Manual) Nucleated RBC % Seg Neutrophils # Seg Neutrophils # Man Lymphocytes # (Manual) Monocytes # (Manual) Eosinophils # (Manual) PT INR Fibrinogen dRVVT Confirm Interp Factor V Activity POC ABG pH POC ABG pCO2 POC ABG pO2 ABG pO2 ABG HCO3 ABG Hemoglobin Oxyhemoglobin Sodium Potassium Chloride Carbon Dioxide 20 L BUN 116 H Creatinine 3.0 H Glucose 172 H POC Glucose 140 H 183 H Lactic Acid Calcium Phosphorus Magnesium Direct Bilirubin AST ALT Alkaline Phosphatase Lactate Dehydrogenase Troponin T C-Reactive Protein Total Protein 6.2 L Albumin 2.9 L Prealbumin Triglycerides Cholesterol LDL Cholesterol Direct HDL Cholesterol Urine pH Urine WBC (Auto) Urine Creatinine Urine Total Protein Fluid Total Protein Vancomycin Trough Rheumatoid Factor Complement C4 Miscellaneous Test Crossmatch 09/13/16 09/14/16 09/14/16 23:23 04:06 04:07 WBC 29.4 H RBC Hgb 8.9 L Hct 27.3 L MCV 75 L MCH 24 L MCHC RDW 19.1 H Plt Count Lymph % (Auto) [place] % (Auto) Lymph # [place] # Baso # Seg Neutrophils % Seg Neuts % (Manual) 84.0 H Lymphocytes % (Manual) 6.0 L Monocytes % (Manual) 9.0 H Eosinophils % (Manual) Basophils % (Manual) Nucleated RBC % Seg Neutrophils # Seg Neutrophils # Man 24.7 H Lymphocytes # (Manual) Monocytes # (Manual) 2.6 H Eosinophils # (Manual) PT INR Fibrinogen dRVVT Confirm Interp Factor V Activity POC ABG pH 7.342 L POC ABG pCO2 POC ABG pO2 116 H ABG pO2 ABG HCO3 ABG Hemoglobin Oxyhemoglobin Sodium Potassium Chloride Carbon Dioxide BUN Creatinine Glucose POC Glucose 154 H Lactic Acid Calcium Phosphorus Magnesium Direct Bilirubin AST ALT Alkaline Phosphatase Lactate Dehydrogenase Troponin T C-Reactive Protein Total Protein Albumin Prealbumin Triglycerides Cholesterol LDL Cholesterol Direct HDL Cholesterol Urine pH Urine WBC (Auto) Urine Creatinine Urine Total Protein Fluid Total Protein Vancomycin Trough Rheumatoid Factor Complement C4 Miscellaneous Test Crossmatch 09/14/16 09/14/16 09/14/16 04:07 05:29 12:19 WBC RBC Hgb Hct MCV MCH MCHC RDW Plt Count Lymph % (Auto) [place] % (Auto) Lymph # [place] # Baso # Seg Neutrophils % Seg Neuts % (Manual) Lymphocytes % (Manual) Monocytes % (Manual) Eosinophils % (Manual) Basophils % (Manual) Nucleated RBC % Seg Neutrophils # Seg Neutrophils # Man Lymphocytes # (Manual) Monocytes # (Manual) Eosinophils # (Manual) PT INR Fibrinogen dRVVT Confirm Interp Factor V Activity POC ABG pH POC ABG pCO2 POC ABG pO2 ABG pO2 ABG HCO3 ABG Hemoglobin Oxyhemoglobin Sodium 136 L Potassium Chloride Carbon Dioxide 18 L BUN 121 H Creatinine 2.8 H Glucose 214 H POC Glucose 239 H 181 H Lactic Acid Calcium Phosphorus Magnesium Direct Bilirubin AST ALT Alkaline Phosphatase Lactate Dehydrogenase Troponin T C-Reactive Protein Total Protein Albumin Prealbumin Triglycerides Cholesterol LDL Cholesterol Direct HDL Cholesterol Urine pH Urine WBC (Auto) Urine Creatinine Urine Total Protein Fluid Total Protein Vancomycin Trough Rheumatoid Factor Complement C4 Miscellaneous Test Crossmatch 09/14/16 09/14/16 09/15/16 18:12 23:37 05:00 WBC 26.1 H RBC 3.05 L Hgb 7.2 L Hct 22.9 L MCV 75 L MCH 24 L MCHC RDW 19.0 H Plt Count Lymph % (Auto) [place] % (Auto) Lymph # [place] # Baso # Seg Neutrophils % Seg Neuts % (Manual) Lymphocytes % (Manual) Monocytes % (Manual) Eosinophils % (Manual) Basophils % (Manual) Nucleated RBC % Seg Neutrophils # Seg Neutrophils # Man Lymphocytes # (Manual) Monocytes # (Manual) Eosinophils # (Manual) PT INR Fibrinogen dRVVT Confirm Interp Factor V Activity POC ABG pH POC ABG pCO2 POC ABG pO2 ABG pO2 ABG HCO3 ABG Hemoglobin Oxyhemoglobin Sodium Potassium Chloride Carbon Dioxide BUN Creatinine Glucose POC Glucose 266 H 154 H Lactic Acid Calcium Phosphorus Magnesium Direct Bilirubin AST ALT Alkaline Phosphatase Lactate Dehydrogenase Troponin T C-Reactive Protein Total Protein Albumin Prealbumin Triglycerides Cholesterol LDL Cholesterol Direct HDL Cholesterol Urine pH Urine WBC (Auto) Urine Creatinine Urine Total Protein Fluid Total Protein Vancomycin Trough Rheumatoid Factor Complement C4 Miscellaneous Test Crossmatch 09/15/16 09/15/16 09/15/16 05:00 05:17 12:45 WBC RBC Hgb Hct MCV MCH MCHC RDW Plt Count Lymph % (Auto) [place] % (Auto) Lymph # [place] # Baso # Seg Neutrophils % Seg Neuts % (Manual) Lymphocytes % (Manual) Monocytes % (Manual) Eosinophils % (Manual) Basophils % (Manual) Nucleated RBC % Seg Neutrophils # Seg Neutrophils # Man Lymphocytes # (Manual) Monocytes # (Manual) Eosinophils # (Manual) PT INR Fibrinogen dRVVT Confirm Interp Factor V Activity POC ABG pH POC ABG pCO2 POC ABG pO2 ABG pO2 ABG HCO3 ABG Hemoglobin Oxyhemoglobin Sodium Potassium 5.2 H Chloride Carbon Dioxide 18 L BUN 139 H Creatinine 3.7 H Glucose 227 H POC Glucose 226 H 244 H Lactic Acid Calcium 8.3 L Phosphorus Magnesium Direct Bilirubin AST ALT Alkaline Phosphatase Lactate Dehydrogenase Troponin T C-Reactive Protein Total Protein Albumin Prealbumin Triglycerides Cholesterol LDL Cholesterol Direct HDL Cholesterol Urine pH Urine WBC (Auto) Urine Creatinine Urine Total Protein Fluid Total Protein Vancomycin Trough Rheumatoid Factor Complement C4 Miscellaneous Test Crossmatch 09/15/16 09/15/16 09/15/16 14:32 17:33 23:35 WBC RBC Hgb Hct MCV MCH MCHC RDW Plt Count Lymph % (Auto) [place] % (Auto) Lymph # [place] # Baso # Seg Neutrophils % Seg Neuts % (Manual) Lymphocytes % (Manual) Monocytes % (Manual) Eosinophils % (Manual) Basophils % (Manual) Nucleated RBC % Seg Neutrophils # Seg Neutrophils # Man Lymphocytes # (Manual) Monocytes # (Manual) Eosinophils # (Manual) PT INR Fibrinogen dRVVT Confirm Interp Factor V Activity POC ABG pH POC ABG pCO2 27.7 L POC ABG pO2 120 H ABG pO2 ABG HCO3 ABG Hemoglobin Oxyhemoglobin Sodium Potassium Chloride Carbon Dioxide BUN Creatinine Glucose POC Glucose 232 H 167 H Lactic Acid Calcium Phosphorus Magnesium Direct Bilirubin AST ALT Alkaline Phosphatase Lactate Dehydrogenase Troponin T C-Reactive Protein Total Protein Albumin Prealbumin Triglycerides Cholesterol LDL Cholesterol Direct HDL Cholesterol Urine pH Urine WBC (Auto) Urine Creatinine Urine Total Protein Fluid Total Protein Vancomycin Trough Rheumatoid Factor Complement C4 Miscellaneous Test Crossmatch 09/16/16 09/16/16 09/16/16 03:58 10:27 10:27 WBC 19.0 H RBC 2.77 L Hgb 6.5 L Hct 20.9 L MCV 76 L MCH 23 L MCHC RDW 19.3 H Plt Count Lymph % (Auto) 11.0 L [place] % (Auto) Lymph # [place] # 1.1 H Baso # Seg Neutrophils % 82.5 H Seg Neuts % (Manual) Lymphocytes % (Manual) Monocytes % (Manual) Eosinophils % (Manual) Basophils % (Manual) Nucleated RBC % Seg Neutrophils # 15.7 H Seg Neutrophils # Man Lymphocytes # (Manual) Monocytes # (Manual) Eosinophils # (Manual) PT INR Fibrinogen dRVVT Confirm Interp Factor V Activity POC ABG pH POC ABG pCO2 POC ABG pO2 ABG pO2 ABG HCO3 ABG Hemoglobin Oxyhemoglobin Sodium Potassium Chloride 109.3 H Carbon Dioxide 18 L BUN 139 H Creatinine 4.1 H Glucose 144 H POC Glucose 146 H Lactic Acid Calcium 8.1 L Phosphorus Magnesium Direct Bilirubin AST ALT Alkaline Phosphatase Lactate Dehydrogenase Troponin T C-Reactive Protein Total Protein Albumin Prealbumin Triglycerides Cholesterol LDL Cholesterol Direct HDL Cholesterol Urine pH Urine WBC (Auto) Urine Creatinine Urine Total Protein Fluid Total Protein Vancomycin Trough Rheumatoid Factor Complement C4 Miscellaneous Test Crossmatch 09/16/16 09/16/16 09/16/16 12:04 12:10 13:55 WBC RBC Hgb Hct MCV MCH MCHC RDW Plt Count Lymph % (Auto) [place] % (Auto) Lymph # [place] # Baso # Seg Neutrophils % Seg Neuts % (Manual) Lymphocytes % (Manual) Monocytes % (Manual) Eosinophils % (Manual) Basophils % (Manual) Nucleated RBC % Seg Neutrophils # Seg Neutrophils # Man Lymphocytes # (Manual) Monocytes # (Manual) Eosinophils # (Manual) PT INR Fibrinogen dRVVT Confirm Interp Factor V Activity POC ABG pH POC ABG pCO2 32.9 L POC ABG pO2 ABG pO2 ABG HCO3 ABG Hemoglobin Oxyhemoglobin Sodium Potassium Chloride Carbon Dioxide BUN Creatinine Glucose POC Glucose 185 H Lactic Acid Calcium Phosphorus Magnesium Direct Bilirubin AST ALT Alkaline Phosphatase Lactate Dehydrogenase Troponin T C-Reactive Protein Total Protein Albumin Prealbumin Triglycerides Cholesterol LDL Cholesterol Direct HDL Cholesterol Urine pH Urine WBC (Auto) Urine Creatinine Urine Total Protein Fluid Total Protein Vancomycin Trough Rheumatoid Factor Complement C4 Miscellaneous Test Crossmatch See Detail 09/16/16 09/16/16 09/16/16 17:55 19:19 23:48 WBC RBC Hgb Hct MCV MCH MCHC RDW Plt Count Lymph % (Auto) [place] % (Auto) Lymph # [place] # Baso # Seg Neutrophils % Seg Neuts % (Manual) Lymphocytes % (Manual) Monocytes % (Manual) Eosinophils % (Manual) Basophils % (Manual) Nucleated RBC % Seg Neutrophils # Seg Neutrophils # Man Lymphocytes # (Manual) Monocytes # (Manual) Eosinophils # (Manual) PT INR Fibrinogen dRVVT Confirm Interp Factor V Activity POC ABG pH POC ABG pCO2 POC ABG pO2 ABG pO2 ABG HCO3 ABG Hemoglobin Oxyhemoglobin Sodium Potassium Chloride Carbon Dioxide BUN Creatinine Glucose POC Glucose 222 H 107 H Lactic Acid Calcium Phosphorus Magnesium Direct Bilirubin AST ALT Alkaline Phosphatase Lactate Dehydrogenase Troponin T C-Reactive Protein Total Protein Albumin Prealbumin Triglycerides Cholesterol LDL Cholesterol Direct HDL Cholesterol Urine pH Urine WBC (Auto) Urine Creatinine 47.4 H Urine Total Protein 16 H Fluid Total Protein Vancomycin Trough Rheumatoid Factor Complement C4 Miscellaneous Test Crossmatch 09/17/16 09/17/16 09/17/16 03:45 03:45 04:55 WBC 19.6 H RBC 3.41 L Hgb 8.5 L Hct 26.7 L MCV 78 L MCH 25 L MCHC RDW 19.9 H Plt Count Lymph % (Auto) 9.3 L [place] % (Auto) Lymph # [place] # 1.2 H Baso # Seg Neutrophils % 83.9 H Seg Neuts % (Manual) Lymphocytes % (Manual) Monocytes % (Manual) Eosinophils % (Manual) Basophils % (Manual) Nucleated RBC % Seg Neutrophils # 16.4 H Seg Neutrophils # Man Lymphocytes # (Manual) Monocytes # (Manual) Eosinophils # (Manual) PT INR Fibrinogen dRVVT Confirm Interp Factor V Activity POC ABG pH POC ABG pCO2 POC ABG pO2 ABG pO2 ABG HCO3 ABG Hemoglobin Oxyhemoglobin Sodium 146 H Potassium 5.1 H Chloride 110.9 H Carbon Dioxide 16 L BUN 146 H Creatinine 4.0 H Glucose 108 H POC Glucose 133 H Lactic Acid Calcium Phosphorus Magnesium 3.00 H Direct Bilirubin AST ALT Alkaline Phosphatase Lactate Dehydrogenase Troponin T C-Reactive Protein Total Protein Albumin Prealbumin Triglycerides Cholesterol LDL Cholesterol Direct HDL Cholesterol Urine pH Urine WBC (Auto) Urine Creatinine Urine Total Protein Fluid Total Protein Vancomycin Trough Rheumatoid Factor Complement C4 Miscellaneous Test Crossmatch 09/17/16 09/17/16 09/17/16 11:15 17:33 23:47 WBC RBC Hgb Hct MCV MCH MCHC RDW Plt Count Lymph % (Auto) [place] % (Auto) Lymph # [place] # Baso # Seg Neutrophils % Seg Neuts % (Manual) Lymphocytes % (Manual) Monocytes % (Manual) Eosinophils % (Manual) Basophils % (Manual) Nucleated RBC % Seg Neutrophils # Seg Neutrophils # Man Lymphocytes # (Manual) Monocytes # (Manual) Eosinophils # (Manual) PT INR Fibrinogen dRVVT Confirm Interp Factor V Activity POC ABG pH POC ABG pCO2 POC ABG pO2 ABG pO2 ABG HCO3 ABG Hemoglobin Oxyhemoglobin Sodium Potassium Chloride Carbon Dioxide BUN Creatinine Glucose POC Glucose 176 H 246 H 148 H Lactic Acid Calcium Phosphorus Magnesium Direct Bilirubin AST ALT Alkaline Phosphatase Lactate Dehydrogenase Troponin T C-Reactive Protein Total Protein Albumin Prealbumin Triglycerides Cholesterol LDL Cholesterol Direct HDL Cholesterol Urine pH Urine WBC (Auto) Urine Creatinine Urine Total Protein Fluid Total Protein Vancomycin Trough Rheumatoid Factor Complement C4 Miscellaneous Test Crossmatch 09/18/16 09/18/16 09/18/16 05:33 08:31 08:31 WBC 18.0 H RBC 3.17 L Hgb 9.0 L Hct 25.7 L MCV MCH MCHC 35 H RDW 20.4 H Plt Count Lymph % (Auto) [place] % (Auto) Lymph # [place] # Baso # Seg Neutrophils % Seg Neuts % (Manual) Lymphocytes % (Manual) Monocytes % (Manual) Eosinophils % (Manual) Basophils % (Manual) Nucleated RBC % Seg Neutrophils # Seg Neutrophils # Man Lymphocytes # (Manual) Monocytes # (Manual) Eosinophils # (Manual) PT INR Fibrinogen dRVVT Confirm Interp Factor V Activity POC ABG pH POC ABG pCO2 POC ABG pO2 ABG pO2 ABG HCO3 ABG Hemoglobin Oxyhemoglobin Sodium Potassium Chloride Carbon Dioxide 15 L BUN 124 H Creatinine 3.8 H Glucose POC Glucose 120 H Lactic Acid Calcium 8.1 L Phosphorus Magnesium Direct Bilirubin AST ALT Alkaline Phosphatase Lactate Dehydrogenase Troponin T C-Reactive Protein Total Protein Albumin Prealbumin Triglycerides Cholesterol LDL Cholesterol Direct HDL Cholesterol Urine pH Urine WBC (Auto) Urine Creatinine Urine Total Protein Fluid Total Protein Vancomycin Trough Rheumatoid Factor Complement C4 Miscellaneous Test Crossmatch 09/18/16 09/18/16 09/18/16 12:03 15:34 17:50 WBC RBC Hgb Hct MCV MCH MCHC RDW Plt Count Lymph % (Auto) [place] % (Auto) Lymph # [place] # Baso # Seg Neutrophils % Seg Neuts % (Manual) Lymphocytes % (Manual) Monocytes % (Manual) Eosinophils % (Manual) Basophils % (Manual) Nucleated RBC % Seg Neutrophils # Seg Neutrophils # Man Lymphocytes # (Manual) Monocytes # (Manual) Eosinophils # (Manual) PT INR Fibrinogen dRVVT Confirm Interp Factor V Activity POC ABG pH POC ABG pCO2 25.7 L POC ABG pO2 66 L ABG pO2 ABG HCO3 ABG Hemoglobin Oxyhemoglobin Sodium Potassium Chloride Carbon Dioxide BUN Creatinine Glucose POC Glucose 156 H 220 H Lactic Acid Calcium Phosphorus Magnesium Direct Bilirubin AST ALT Alkaline Phosphatase Lactate Dehydrogenase Troponin T C-Reactive Protein Total Protein Albumin Prealbumin Triglycerides Cholesterol LDL Cholesterol Direct HDL Cholesterol Urine pH Urine WBC (Auto) Urine Creatinine Urine Total Protein Fluid Total Protein Vancomycin Trough Rheumatoid Factor Complement C4 Miscellaneous Test Crossmatch 09/19/16 09/19/16 09/19/16 06:21 09:50 09:50 WBC 17.1 H RBC 3.49 L Hgb 9.0 L Hct 28.1 L MCV MCH 26 L MCHC RDW 20.8 H Plt Count Lymph % (Auto) 11.5 L [place] % (Auto) 7.5 H Lymph # [place] # 1.3 H Baso # Seg Neutrophils % 79.8 H Seg Neuts % (Manual) Lymphocytes % (Manual) Monocytes % (Manual) Eosinophils % (Manual) Basophils % (Manual) Nucleated RBC % Seg Neutrophils # 13.7 H Seg Neutrophils # Man Lymphocytes # (Manual) Monocytes # (Manual) Eosinophils # (Manual) PT INR Fibrinogen dRVVT Confirm Interp Factor V Activity POC ABG pH POC ABG pCO2 POC ABG pO2 ABG pO2 ABG HCO3 ABG Hemoglobin Oxyhemoglobin Sodium Potassium Chloride 108.6 H Carbon Dioxide 15 L BUN 125 H Creatinine 4.1 H Glucose 124 H POC Glucose 119 H Lactic Acid Calcium Phosphorus Magnesium Direct Bilirubin AST ALT Alkaline Phosphatase Lactate Dehydrogenase Troponin T C-Reactive Protein Total Protein Albumin Prealbumin Triglycerides Cholesterol LDL Cholesterol Direct HDL Cholesterol Urine pH Urine WBC (Auto) Urine Creatinine Urine Total Protein Fluid Total Protein Vancomycin Trough Rheumatoid Factor Complement C4 Miscellaneous Test Crossmatch 09/19/16 09/19/16 09/19/16 11:25 17:53 23:36 WBC RBC Hgb Hct MCV MCH MCHC RDW Plt Count Lymph % (Auto) [place] % (Auto) Lymph # [place] # Baso # Seg Neutrophils % Seg Neuts % (Manual) Lymphocytes % (Manual) Monocytes % (Manual) Eosinophils % (Manual) Basophils % (Manual) Nucleated RBC % Seg Neutrophils # Seg Neutrophils # Man Lymphocytes # (Manual) Monocytes # (Manual) Eosinophils # (Manual) PT INR Fibrinogen dRVVT Confirm Interp Factor V Activity POC ABG pH POC ABG pCO2 POC ABG pO2 ABG pO2 ABG HCO3 ABG Hemoglobin Oxyhemoglobin Sodium Potassium Chloride Carbon Dioxide BUN Creatinine Glucose POC Glucose 160 H 245 H 121 H Lactic Acid Calcium Phosphorus Magnesium Direct Bilirubin AST ALT Alkaline Phosphatase Lactate Dehydrogenase Troponin T C-Reactive Protein Total Protein Albumin Prealbumin Triglycerides Cholesterol LDL Cholesterol Direct HDL Cholesterol Urine pH Urine WBC (Auto) Urine Creatinine Urine Total Protein Fluid Total Protein Vancomycin Trough Rheumatoid Factor Complement C4 Miscellaneous Test Crossmatch 09/20/16 09/20/16 09/20/16 04:10 04:10 04:10 WBC 17.0 H RBC 3.21 L Hgb 8.2 L Hct 25.5 L MCV MCH 26 L MCHC RDW 20.9 H Plt Count Lymph % (Auto) [place] % (Auto) Lymph # [place] # Baso # Seg Neutrophils % Seg Neuts % (Manual) Lymphocytes % (Manual) Monocytes % (Manual) Eosinophils % (Manual) Basophils % (Manual) Nucleated RBC % Seg Neutrophils # Seg Neutrophils # Man Lymphocytes # (Manual) Monocytes # (Manual) Eosinophils # (Manual) PT INR Fibrinogen dRVVT Confirm Interp Factor V Activity POC ABG pH POC ABG pCO2 POC ABG pO2 ABG pO2 ABG HCO3 ABG Hemoglobin Oxyhemoglobin Sodium Potassium Chloride 111.0 H Carbon Dioxide 16 L BUN 129 H Creatinine 3.7 H Glucose 115 H POC Glucose Lactic Acid Calcium 8.2 L Phosphorus Magnesium Direct Bilirubin AST ALT Alkaline Phosphatase Lactate Dehydrogenase Troponin T C-Reactive Protein Total Protein Albumin Prealbumin Triglycerides 243 H Cholesterol LDL Cholesterol Direct HDL Cholesterol Urine pH Urine WBC (Auto) Urine Creatinine Urine Total Protein Fluid Total Protein Vancomycin Trough Rheumatoid Factor Complement C4 Miscellaneous Test Crossmatch 09/20/16 09/20/16 09/20/16 05:40 11:52 16:50 WBC RBC Hgb Hct MCV MCH MCHC RDW Plt Count Lymph % (Auto) [place] % (Auto) Lymph # [place] # Baso # Seg Neutrophils % Seg Neuts % (Manual) Lymphocytes % (Manual) Monocytes % (Manual) Eosinophils % (Manual) Basophils % (Manual) Nucleated RBC % Seg Neutrophils # Seg Neutrophils # Man Lymphocytes # (Manual) Monocytes # (Manual) Eosinophils # (Manual) PT INR Fibrinogen dRVVT Confirm Interp Factor V Activity POC ABG pH POC ABG pCO2 POC ABG pO2 ABG pO2 ABG HCO3 ABG Hemoglobin Oxyhemoglobin Sodium Potassium Chloride Carbon Dioxide BUN Creatinine Glucose POC Glucose 131 H 183 H 236 H Lactic Acid Calcium Phosphorus Magnesium Direct Bilirubin AST ALT Alkaline Phosphatase Lactate Dehydrogenase Troponin T C-Reactive Protein Total Protein Albumin Prealbumin Triglycerides Cholesterol LDL Cholesterol Direct HDL Cholesterol Urine pH Urine WBC (Auto) Urine Creatinine Urine Total Protein Fluid Total Protein Vancomycin Trough Rheumatoid Factor Complement C4 Miscellaneous Test Crossmatch 09/20/16 09/21/16 09/21/16 23:51 03:30 04:44 WBC RBC Hgb Hct MCV MCH MCHC RDW Plt Count Lymph % (Auto) [place] % (Auto) Lymph # [place] # Baso # Seg Neutrophils % Seg Neuts % (Manual) Lymphocytes % (Manual) Monocytes % (Manual) Eosinophils % (Manual) Basophils % (Manual) Nucleated RBC % Seg Neutrophils # Seg Neutrophils # Man Lymphocytes # (Manual) Monocytes # (Manual) Eosinophils # (Manual) PT INR Fibrinogen dRVVT Confirm Interp Factor V Activity POC ABG pH POC ABG pCO2 POC ABG pO2 ABG pO2 ABG HCO3 ABG Hemoglobin Oxyhemoglobin Sodium Potassium Chloride Carbon Dioxide BUN Creatinine Glucose POC Glucose 114 H 141 H Lactic Acid Calcium Phosphorus Magnesium 2.70 H Direct Bilirubin AST ALT Alkaline Phosphatase Lactate Dehydrogenase Troponin T C-Reactive Protein Total Protein Albumin Prealbumin Triglycerides Cholesterol LDL Cholesterol Direct HDL Cholesterol Urine pH Urine WBC (Auto) Urine Creatinine Urine Total Protein Fluid Total Protein Vancomycin Trough Rheumatoid Factor Complement C4 Miscellaneous Test Crossmatch 09/21/16 09/21/16 09/21/16 07:45 07:45 10:01 WBC 13.8 H RBC 2.94 L Hgb 7.5 L Hct 23.5 L MCV MCH 26 L MCHC RDW 21.2 H Plt Count Lymph % (Auto) 6.9 L [place] % (Auto) 9.4 H Lymph # 0.9 L [place] # 1.3 H Baso # Seg Neutrophils % 83.2 H Seg Neuts % (Manual) Lymphocytes % (Manual) Monocytes % (Manual) Eosinophils % (Manual) Basophils % (Manual) Nucleated RBC % Seg Neutrophils # 11.5 H Seg Neutrophils # Man Lymphocytes # (Manual) Monocytes # (Manual) Eosinophils # (Manual) PT INR Fibrinogen dRVVT Confirm Interp Factor V Activity POC ABG pH 7.308 L POC ABG pCO2 31.9 L POC ABG pO2 148 H ABG pO2 ABG HCO3 ABG Hemoglobin Oxyhemoglobin Sodium 147 H Potassium Chloride 114.2 H Carbon Dioxide 15 L BUN 120 H Creatinine 3.9 H Glucose 156 H POC Glucose Lactic Acid Calcium 8.2 L Phosphorus Magnesium Direct Bilirubin AST ALT Alkaline Phosphatase Lactate Dehydrogenase Troponin T C-Reactive Protein Total Protein Albumin Prealbumin Triglycerides Cholesterol LDL Cholesterol Direct HDL Cholesterol Urine pH Urine WBC (Auto) Urine Creatinine Urine Total Protein Fluid Total Protein Vancomycin Trough Rheumatoid Factor Complement C4 Miscellaneous Test Crossmatch 09/21/16 09/21/16 09/21/16 12:00 12:03 13:00 WBC RBC Hgb Hct MCV MCH MCHC RDW Plt Count Lymph % (Auto) [place] % (Auto) Lymph # [place] # Baso # Seg Neutrophils % Seg Neuts % (Manual) Lymphocytes % (Manual) Monocytes % (Manual) Eosinophils % (Manual) Basophils % (Manual) Nucleated RBC % Seg Neutrophils # Seg Neutrophils # Man Lymphocytes # (Manual) Monocytes # (Manual) Eosinophils # (Manual) PT INR Fibrinogen dRVVT Confirm Interp Factor V Activity POC ABG pH POC ABG pCO2 POC ABG pO2 ABG pO2 ABG HCO3 ABG Hemoglobin Oxyhemoglobin Sodium Potassium Chloride Carbon Dioxide BUN Creatinine Glucose POC Glucose 163 H Lactic Acid Calcium Phosphorus Magnesium Direct Bilirubin AST ALT Alkaline Phosphatase Lactate Dehydrogenase Troponin T C-Reactive Protein Total Protein Albumin Prealbumin Triglycerides Cholesterol LDL Cholesterol Direct HDL Cholesterol Urine pH Urine WBC (Auto) Urine Creatinine 54.8 H Urine Total Protein Fluid Total Protein Vancomycin Trough 2.3 L Rheumatoid Factor Complement C4 Miscellaneous Test Crossmatch 09/21/16 09/21/16 09/22/16 16:51 23:17 06:27 WBC RBC Hgb Hct MCV MCH MCHC RDW Plt Count Lymph % (Auto) [place] % (Auto) Lymph # [place] # Baso # Seg Neutrophils % Seg Neuts % (Manual) Lymphocytes % (Manual) Monocytes % (Manual) Eosinophils % (Manual) Basophils % (Manual) Nucleated RBC % Seg Neutrophils # Seg Neutrophils # Man Lymphocytes # (Manual) Monocytes # (Manual) Eosinophils # (Manual) PT INR Fibrinogen dRVVT Confirm Interp Factor V Activity POC ABG pH POC ABG pCO2 POC ABG pO2 ABG pO2 ABG HCO3 ABG Hemoglobin Oxyhemoglobin Sodium Potassium Chloride Carbon Dioxide BUN Creatinine Glucose POC Glucose 206 H 114 H 115 H Lactic Acid Calcium Phosphorus Magnesium Direct Bilirubin AST ALT Alkaline Phosphatase Lactate Dehydrogenase Troponin T C-Reactive Protein Total Protein Albumin Prealbumin Triglycerides Cholesterol LDL Cholesterol Direct HDL Cholesterol Urine pH Urine WBC (Auto) Urine Creatinine Urine Total Protein Fluid Total Protein Vancomycin Trough Rheumatoid Factor Complement C4 Miscellaneous Test Crossmatch 09/22/16 09/22/16 09/22/16 07:50 07:50 12:00 WBC 17.8 H RBC 3.04 L Hgb 8.0 L Hct 24.7 L MCV MCH 26 L MCHC RDW 21.6 H Plt Count Lymph % (Auto) [place] % (Auto) Lymph # [place] # Baso # Seg Neutrophils % Seg Neuts % (Manual) Lymphocytes % (Manual) Monocytes % (Manual) Eosinophils % (Manual) Basophils % (Manual) Nucleated RBC % Seg Neutrophils # Seg Neutrophils # Man Lymphocytes # (Manual) Monocytes # (Manual) Eosinophils # (Manual) PT INR Fibrinogen dRVVT Confirm Interp Factor V Activity POC ABG pH POC ABG pCO2 POC ABG pO2 ABG pO2 ABG HCO3 ABG Hemoglobin Oxyhemoglobin Sodium 150 H Potassium Chloride 118.2 H Carbon Dioxide 14 L BUN 111 H Creatinine 3.7 H Glucose 157 H POC Glucose 183 H Lactic Acid Calcium Phosphorus Magnesium Direct Bilirubin AST ALT Alkaline Phosphatase Lactate Dehydrogenase Troponin T C-Reactive Protein Total Protein Albumin Prealbumin Triglycerides Cholesterol LDL Cholesterol Direct HDL Cholesterol Urine pH Urine WBC (Auto) Urine Creatinine Urine Total Protein Fluid Total Protein Vancomycin Trough Rheumatoid Factor Complement C4 Miscellaneous Test Crossmatch 09/22/16 09/22/16 09/23/16 17:29 23:10 05:00 WBC 19.2 H RBC 3.13 L Hgb 8.0 L Hct 25.2 L MCV MCH 26 L MCHC RDW 22.1 H Plt Count Lymph % (Auto) [place] % (Auto) Lymph # [place] # Baso # Seg Neutrophils % Seg Neuts % (Manual) 92.0 H Lymphocytes % (Manual) 3.0 L Monocytes % (Manual) Eosinophils % (Manual) Basophils % (Manual) Nucleated RBC % Seg Neutrophils # Seg Neutrophils # Man 17.7 H Lymphocytes # (Manual) 0.6 L Monocytes # (Manual) Eosinophils # (Manual) PT INR Fibrinogen dRVVT Confirm Interp Factor V Activity POC ABG pH POC ABG pCO2 POC ABG pO2 ABG pO2 ABG HCO3 ABG Hemoglobin Oxyhemoglobin Sodium Potassium Chloride Carbon Dioxide BUN Creatinine Glucose POC Glucose 197 H 169 H Lactic Acid Calcium Phosphorus Magnesium Direct Bilirubin AST ALT Alkaline Phosphatase Lactate Dehydrogenase Troponin T C-Reactive Protein Total Protein Albumin Prealbumin Triglycerides Cholesterol LDL Cholesterol Direct HDL Cholesterol Urine pH Urine WBC (Auto) Urine Creatinine Urine Total Protein Fluid Total Protein Vancomycin Trough Rheumatoid Factor Complement C4 Miscellaneous Test Crossmatch 09/23/16 09/23/16 09/23/16 05:00 05:00 05:10 WBC RBC Hgb Hct MCV MCH MCHC RDW Plt Count Lymph % (Auto) [place] % (Auto) Lymph # [place] # Baso # Seg Neutrophils % Seg Neuts % (Manual) Lymphocytes % (Manual) Monocytes % (Manual) Eosinophils % (Manual) Basophils % (Manual) Nucleated RBC % Seg Neutrophils # Seg Neutrophils # Man Lymphocytes # (Manual) Monocytes # (Manual) Eosinophils # (Manual) PT INR Fibrinogen dRVVT Confirm Interp Factor V Activity POC ABG pH POC ABG pCO2 POC ABG pO2 ABG pO2 ABG HCO3 ABG Hemoglobin Oxyhemoglobin Sodium 147 H Potassium 3.2 L Chloride 115.7 H Carbon Dioxide 13 L BUN 111 H Creatinine 3.8 H Glucose 194 H POC Glucose 188 H Lactic Acid Calcium 7.3 L D Phosphorus Magnesium Direct Bilirubin AST ALT Alkaline Phosphatase Lactate Dehydrogenase Troponin T C-Reactive Protein 3.20 H Total Protein Albumin Prealbumin Triglycerides Cholesterol LDL Cholesterol Direct HDL Cholesterol Urine pH Urine WBC (Auto) Urine Creatinine Urine Total Protein Fluid Total Protein Vancomycin Trough Rheumatoid Factor Complement C4 Miscellaneous Test Crossmatch 09/23/16 09/23/16 09/23/16 11:37 12:29 18:01 WBC RBC Hgb Hct MCV MCH MCHC RDW Plt Count Lymph % (Auto) [place] % (Auto) Lymph # [place] # Baso # Seg Neutrophils % Seg Neuts % (Manual) Lymphocytes % (Manual) Monocytes % (Manual) Eosinophils % (Manual) Basophils % (Manual) Nucleated RBC % Seg Neutrophils # Seg Neutrophils # Man Lymphocytes # (Manual) Monocytes # (Manual) Eosinophils # (Manual) PT INR Fibrinogen dRVVT Confirm Interp Factor V Activity POC ABG pH POC ABG pCO2 18.9 L POC ABG pO2 143 H ABG pO2 ABG HCO3 ABG Hemoglobin Oxyhemoglobin Sodium Potassium Chloride Carbon Dioxide BUN Creatinine Glucose POC Glucose 153 H 108 H Lactic Acid Calcium Phosphorus Magnesium Direct Bilirubin AST ALT Alkaline Phosphatase Lactate Dehydrogenase Troponin T C-Reactive Protein Total Protein Albumin Prealbumin Triglycerides Cholesterol LDL Cholesterol Direct HDL Cholesterol Urine pH Urine WBC (Auto) Urine Creatinine Urine Total Protein Fluid Total Protein Vancomycin Trough Rheumatoid Factor Complement C4 Miscellaneous Test Crossmatch 09/23/16 09/23/16 09/24/16 21:19 23:43 05:16 WBC RBC Hgb Hct MCV MCH MCHC RDW Plt Count Lymph % (Auto) [place] % (Auto) Lymph # [place] # Baso # Seg Neutrophils % Seg Neuts % (Manual) Lymphocytes % (Manual) Monocytes % (Manual) Eosinophils % (Manual) Basophils % (Manual) Nucleated RBC % Seg Neutrophils # Seg Neutrophils # Man Lymphocytes # (Manual) Monocytes # (Manual) Eosinophils # (Manual) PT INR Fibrinogen dRVVT Confirm Interp Factor V Activity POC ABG pH POC ABG pCO2 17.3 L POC ABG pO2 112 H ABG pO2 ABG HCO3 ABG Hemoglobin Oxyhemoglobin Sodium Potassium Chloride Carbon Dioxide BUN Creatinine Glucose POC Glucose 143 H 164 H Lactic Acid Calcium Phosphorus Magnesium Direct Bilirubin AST ALT Alkaline Phosphatase Lactate Dehydrogenase Troponin T C-Reactive Protein Total Protein Albumin Prealbumin Triglycerides Cholesterol LDL Cholesterol Direct HDL Cholesterol Urine pH Urine WBC (Auto) Urine Creatinine Urine Total Protein Fluid Total Protein Vancomycin Trough Rheumatoid Factor Complement C4 Miscellaneous Test Crossmatch 09/24/16 09/24/16 09/24/16 05:21 11:58 17:06 WBC RBC Hgb Hct MCV MCH MCHC RDW Plt Count Lymph % (Auto) [place] % (Auto) Lymph # [place] # Baso # Seg Neutrophils % Seg Neuts % (Manual) Lymphocytes % (Manual) Monocytes % (Manual) Eosinophils % (Manual) Basophils % (Manual) Nucleated RBC % Seg Neutrophils # Seg Neutrophils # Man Lymphocytes # (Manual) Monocytes # (Manual) Eosinophils # (Manual) PT INR Fibrinogen dRVVT Confirm Interp Factor V Activity POC ABG pH POC ABG pCO2 POC ABG pO2 ABG pO2 ABG HCO3 ABG Hemoglobin Oxyhemoglobin Sodium Potassium Chloride Carbon Dioxide 10 L BUN 103 H Creatinine 4.3 H Glucose 163 H POC Glucose 173 H 167 H Lactic Acid Calcium 6.5 L Phosphorus Magnesium Direct Bilirubin AST ALT Alkaline Phosphatase Lactate Dehydrogenase Troponin T C-Reactive Protein Total Protein Albumin Prealbumin Triglycerides Cholesterol LDL Cholesterol Direct HDL Cholesterol Urine pH Urine WBC (Auto) Urine Creatinine Urine Total Protein Fluid Total Protein Vancomycin Trough Rheumatoid Factor Complement C4 Miscellaneous Test Crossmatch 09/24/16 09/24/16 09/24/16 20:15 21:02 23:48 WBC RBC Hgb Hct MCV MCH MCHC RDW Plt Count Lymph % (Auto) [place] % (Auto) Lymph # [place] # Baso # Seg Neutrophils % Seg Neuts % (Manual) Lymphocytes % (Manual) Monocytes % (Manual) Eosinophils % (Manual) Basophils % (Manual) Nucleated RBC % Seg Neutrophils # Seg Neutrophils # Man Lymphocytes # (Manual) Monocytes # (Manual) Eosinophils # (Manual) PT INR Fibrinogen dRVVT Confirm Interp Factor V Activity POC ABG pH 7.288 L POC ABG pCO2 30.2 L 21.5 L POC ABG pO2 32 L 39 L ABG pO2 ABG HCO3 ABG Hemoglobin Oxyhemoglobin Sodium Potassium Chloride Carbon Dioxide BUN Creatinine Glucose POC Glucose 109 H Lactic Acid Calcium Phosphorus Magnesium Direct Bilirubin AST ALT Alkaline Phosphatase Lactate Dehydrogenase Troponin T C-Reactive Protein Total Protein Albumin Prealbumin Triglycerides Cholesterol LDL Cholesterol Direct HDL Cholesterol Urine pH Urine WBC (Auto) Urine Creatinine Urine Total Protein Fluid Total Protein Vancomycin Trough Rheumatoid Factor Complement C4 Miscellaneous Test Crossmatch 09/25/16 09/25/16 09/25/16 04:20 04:20 04:20 WBC RBC 2.58 L Hgb 7.0 L Hct 21.0 L MCV MCH 27 L MCHC RDW 23.8 H Plt Count Lymph % (Auto) [place] % (Auto) Lymph # [place] # Baso # Seg Neutrophils % Seg Neuts % (Manual) Lymphocytes % (Manual) 12.0 L Monocytes % (Manual) Eosinophils % (Manual) 7.0 H Basophils % (Manual) 2.0 H Nucleated RBC % Seg Neutrophils # Seg Neutrophils # Man Lymphocytes # (Manual) 0.9 L Monocytes # (Manual) Eosinophils # (Manual) 0.5 H PT INR Fibrinogen dRVVT Confirm Interp Factor V Activity POC ABG pH POC ABG pCO2 POC ABG pO2 ABG pO2 ABG HCO3 ABG Hemoglobin Oxyhemoglobin Sodium Potassium Chloride Carbon Dioxide 15 L BUN 72 H Creatinine 3.8 H Glucose POC Glucose Lactic Acid Calcium 6.0 L Phosphorus 4.60 H Magnesium 1.60 L Direct Bilirubin AST ALT Alkaline Phosphatase Lactate Dehydrogenase Troponin T C-Reactive Protein Total Protein Albumin Prealbumin Triglycerides Cholesterol LDL Cholesterol Direct HDL Cholesterol Urine pH Urine WBC (Auto) Urine Creatinine Urine Total Protein Fluid Total Protein Vancomycin Trough Rheumatoid Factor Complement C4 Miscellaneous Test Crossmatch 09/25/16 09/25/16 09/25/16 04:57 08:02 10:30 WBC RBC Hgb Hct MCV MCH MCHC RDW Plt Count Lymph % (Auto) [place] % (Auto) Lymph # [place] # Baso # Seg Neutrophils % Seg Neuts % (Manual) Lymphocytes % (Manual) Monocytes % (Manual) Eosinophils % (Manual) Basophils % (Manual) Nucleated RBC % Seg Neutrophils # Seg Neutrophils # Man Lymphocytes # (Manual) Monocytes # (Manual) Eosinophils # (Manual) PT INR Fibrinogen dRVVT Confirm Interp Factor V Activity POC ABG pH POC ABG pCO2 24.7 L POC ABG pO2 152 H ABG pO2 ABG HCO3 ABG Hemoglobin Oxyhemoglobin Sodium Potassium Chloride Carbon Dioxide BUN Creatinine Glucose POC Glucose 113 H Lactic Acid Calcium Phosphorus Magnesium Direct Bilirubin AST ALT Alkaline Phosphatase Lactate Dehydrogenase Troponin T C-Reactive Protein Total Protein Albumin Prealbumin Triglycerides Cholesterol LDL Cholesterol Direct HDL Cholesterol Urine pH Urine WBC (Auto) Urine Creatinine Urine Total Protein Fluid Total Protein Vancomycin Trough Rheumatoid Factor Complement C4 Miscellaneous Test Crossmatch See Detail 09/25/16 09/25/16 09/25/16 12:05 17:44 23:47 WBC RBC Hgb Hct MCV MCH MCHC RDW Plt Count Lymph % (Auto) [place] % (Auto) Lymph # [place] # Baso # Seg Neutrophils % Seg Neuts % (Manual) Lymphocytes % (Manual) Monocytes % (Manual) Eosinophils % (Manual) Basophils % (Manual) Nucleated RBC % Seg Neutrophils # Seg Neutrophils # Man Lymphocytes # (Manual) Monocytes # (Manual) Eosinophils # (Manual) PT INR Fibrinogen dRVVT Confirm Interp Factor V Activity POC ABG pH POC ABG pCO2 POC ABG pO2 ABG pO2 ABG HCO3 ABG Hemoglobin Oxyhemoglobin Sodium Potassium Chloride Carbon Dioxide BUN Creatinine Glucose POC Glucose 117 H 119 H 150 H Lactic Acid Calcium Phosphorus Magnesium Direct Bilirubin AST ALT Alkaline Phosphatase Lactate Dehydrogenase Troponin T C-Reactive Protein Total Protein Albumin Prealbumin Triglycerides Cholesterol LDL Cholesterol Direct HDL Cholesterol Urine pH Urine WBC (Auto) Urine Creatinine Urine Total Protein Fluid Total Protein Vancomycin Trough Rheumatoid Factor Complement C4 Miscellaneous Test Crossmatch 09/26/16 09/26/16 09/26/16 04:25 04:25 04:25 WBC RBC 2.65 L Hgb 7.4 L Hct 21.6 L MCV MCH MCHC RDW 22.5 H Plt Count Lymph % (Auto) [place] % (Auto) Lymph # [place] # Baso # Seg Neutrophils % Seg Neuts % (Manual) Lymphocytes % (Manual) 6.0 L Monocytes % (Manual) Eosinophils % (Manual) 11.0 H Basophils % (Manual) Nucleated RBC % Seg Neutrophils # Seg Neutrophils # Man Lymphocytes # (Manual) 0.4 L Monocytes # (Manual) Eosinophils # (Manual) 0.6 H PT INR Fibrinogen dRVVT Confirm Interp Factor V Activity POC ABG pH POC ABG pCO2 POC ABG pO2 ABG pO2 ABG HCO3 ABG Hemoglobin Oxyhemoglobin Sodium Potassium Chloride 97.0 L Carbon Dioxide 19 L BUN 43 H Creatinine 2.6 H Glucose 130 H POC Glucose Lactic Acid 4.40 H* Calcium 6.7 L Phosphorus Magnesium Direct Bilirubin AST ALT Alkaline Phosphatase Lactate Dehydrogenase Troponin T C-Reactive Protein Total Protein Albumin Prealbumin Triglycerides Cholesterol LDL Cholesterol Direct HDL Cholesterol Urine pH Urine WBC (Auto) Urine Creatinine Urine Total Protein Fluid Total Protein Vancomycin Trough Rheumatoid Factor Complement C4 Miscellaneous Test Crossmatch 09/26/16 09/26/16 09/26/16 05:20 11:44 12:12 WBC RBC Hgb Hct MCV MCH MCHC RDW Plt Count Lymph % (Auto) [place] % (Auto) Lymph # [place] # Baso # Seg Neutrophils % Seg Neuts % (Manual) Lymphocytes % (Manual) Monocytes % (Manual) Eosinophils % (Manual) Basophils % (Manual) Nucleated RBC % Seg Neutrophils # Seg Neutrophils # Man Lymphocytes # (Manual) Monocytes # (Manual) Eosinophils # (Manual) PT INR Fibrinogen dRVVT Confirm Interp Factor V Activity POC ABG pH POC ABG pCO2 27.0 L POC ABG pO2 69 L ABG pO2 ABG HCO3 ABG Hemoglobin Oxyhemoglobin Sodium Potassium Chloride Carbon Dioxide BUN Creatinine Glucose POC Glucose 121 H 128 H Lactic Acid Calcium Phosphorus Magnesium Direct Bilirubin AST ALT Alkaline Phosphatase Lactate Dehydrogenase Troponin T C-Reactive Protein Total Protein Albumin Prealbumin Triglycerides Cholesterol LDL Cholesterol Direct HDL Cholesterol Urine pH Urine WBC (Auto) Urine Creatinine Urine Total Protein Fluid Total Protein Vancomycin Trough Rheumatoid Factor Complement C4 Miscellaneous Test Crossmatch 09/26/16 09/26/16 09/27/16 18:31 23:40 08:20 WBC RBC Hgb Hct MCV MCH MCHC RDW Plt Count Lymph % (Auto) [place] % (Auto) Lymph # [place] # Baso # Seg Neutrophils % Seg Neuts % (Manual) Lymphocytes % (Manual) Monocytes % (Manual) Eosinophils % (Manual) Basophils % (Manual) Nucleated RBC % Seg Neutrophils # Seg Neutrophils # Man Lymphocytes # (Manual) Monocytes # (Manual) Eosinophils # (Manual) PT INR Fibrinogen dRVVT Confirm Interp Factor V Activity POC ABG pH POC ABG pCO2 POC ABG pO2 ABG pO2 ABG HCO3 ABG Hemoglobin Oxyhemoglobin Sodium Potassium Chloride Carbon Dioxide BUN Creatinine Glucose POC Glucose 120 H 133 H Lactic Acid 4.10 H* Calcium Phosphorus Magnesium Direct Bilirubin AST ALT Alkaline Phosphatase Lactate Dehydrogenase Troponin T C-Reactive Protein Total Protein Albumin Prealbumin Triglycerides Cholesterol LDL Cholesterol Direct HDL Cholesterol Urine pH Urine WBC (Auto) Urine Creatinine Urine Total Protein Fluid Total Protein Vancomycin Trough Rheumatoid Factor Complement C4 Miscellaneous Test Crossmatch 09/27/16 09/27/16 09/27/16 11:23 15:00 18:15 WBC RBC Hgb Hct MCV MCH MCHC RDW Plt Count Lymph % (Auto) [place] % (Auto) Lymph # [place] # Baso # Seg Neutrophils % Seg Neuts % (Manual) Lymphocytes % (Manual) Monocytes % (Manual) Eosinophils % (Manual) Basophils % (Manual) Nucleated RBC % Seg Neutrophils # Seg Neutrophils # Man Lymphocytes # (Manual) Monocytes # (Manual) Eosinophils # (Manual) PT INR Fibrinogen dRVVT Confirm Interp Factor V Activity POC ABG pH 7.459 H POC ABG pCO2 27.1 L POC ABG pO2 140 H ABG pO2 ABG HCO3 ABG Hemoglobin Oxyhemoglobin Sodium Potassium Chloride Carbon Dioxide BUN Creatinine Glucose POC Glucose 114 H 127 H Lactic Acid Calcium Phosphorus Magnesium Direct Bilirubin AST ALT Alkaline Phosphatase Lactate Dehydrogenase Troponin T C-Reactive Protein Total Protein Albumin Prealbumin Triglycerides Cholesterol LDL Cholesterol Direct HDL Cholesterol Urine pH Urine WBC (Auto) Urine Creatinine Urine Total Protein Fluid Total Protein Vancomycin Trough Rheumatoid Factor Complement C4 Miscellaneous Test Crossmatch 09/27/16 09/27/16 09/28/16 Unknown Unknown 03:45 WBC RBC 2.49 L Hgb 6.8 L Hct 20.7 L MCV MCH 27 L MCHC RDW 22.1 H Plt Count Lymph % (Auto) [place] % (Auto) Lymph # [place] # Baso # Seg Neutrophils % Seg Neuts % (Manual) 32.0 L Lymphocytes % (Manual) 12.0 L Monocytes % (Manual) 11.0 H Eosinophils % (Manual) 10.0 H Basophils % (Manual) Nucleated RBC % Seg Neutrophils # Seg Neutrophils # Man Lymphocytes # (Manual) 1.0 L Monocytes # (Manual) 0.9 H Eosinophils # (Manual) 0.8 H PT INR Fibrinogen dRVVT Confirm Interp Factor V Activity POC ABG pH POC ABG pCO2 POC ABG pO2 ABG pO2 ABG HCO3 ABG Hemoglobin Oxyhemoglobin Sodium 135 L 135 L Potassium 3.5 L Chloride 93.6 L 94.4 L Carbon Dioxide 17 L 21 L BUN 45 H 28 H Creatinine 3.3 H 2.5 H Glucose 106 H POC Glucose Lactic Acid Calcium 7.3 L 7.1 L Phosphorus Magnesium Direct Bilirubin AST ALT Alkaline Phosphatase Lactate Dehydrogenase Troponin T C-Reactive Protein Total Protein Albumin Prealbumin Triglycerides Cholesterol LDL Cholesterol Direct HDL Cholesterol Urine pH Urine WBC (Auto) Urine Creatinine Urine Total Protein Fluid Total Protein Vancomycin Trough Rheumatoid Factor Complement C4 Miscellaneous Test Crossmatch 09/28/16 09/28/16 09/28/16 03:45 07:25 11:58 WBC 13.3 H RBC 3.01 L Hgb 8.4 L Hct 25.0 L MCV MCH MCHC RDW 20.5 H Plt Count 128 L Lymph % (Auto) [place] % (Auto) Lymph # [place] # Baso # Seg Neutrophils % Seg Neuts % (Manual) Lymphocytes % (Manual) 7.0 L Monocytes % (Manual) Eosinophils % (Manual) 6.0 H Basophils % (Manual) Nucleated RBC % Seg Neutrophils # Seg Neutrophils # Man Lymphocytes # (Manual) 0.9 L Monocytes # (Manual) Eosinophils # (Manual) 0.8 H PT INR Fibrinogen dRVVT Confirm Interp Factor V Activity POC ABG pH POC ABG pCO2 POC ABG pO2 ABG pO2 ABG HCO3 ABG Hemoglobin Oxyhemoglobin Sodium Potassium Chloride Carbon Dioxide BUN Creatinine Glucose POC Glucose 121 H Lactic Acid 4.50 H* Calcium Phosphorus Magnesium Direct Bilirubin AST ALT Alkaline Phosphatase Lactate Dehydrogenase Troponin T C-Reactive Protein Total Protein Albumin Prealbumin Triglycerides Cholesterol LDL Cholesterol Direct HDL Cholesterol Urine pH Urine WBC (Auto) Urine Creatinine Urine Total Protein Fluid Total Protein Vancomycin Trough Rheumatoid Factor Complement C4 Miscellaneous Test Crossmatch 09/29/16 09/29/16 09/29/16 06:45 06:45 06:45 WBC 14.9 H RBC 2.74 L Hgb 7.6 L Hct 23.2 L MCV MCH MCHC RDW 20.5 H Plt Count 81 L Lymph % (Auto) [place] % (Auto) Lymph # [place] # Baso # Seg Neutrophils % Seg Neuts % (Manual) 81.0 H Lymphocytes % (Manual) 4.0 L Monocytes % (Manual) Eosinophils % (Manual) Basophils % (Manual) Nucleated RBC % Seg Neutrophils # Seg Neutrophils # Man 12.1 H Lymphocytes # (Manual) 0.6 L Monocytes # (Manual) Eosinophils # (Manual) PT INR Fibrinogen dRVVT Confirm Interp Factor V Activity POC ABG pH POC ABG pCO2 POC ABG pO2 ABG pO2 ABG HCO3 ABG Hemoglobin Oxyhemoglobin Sodium 133 L Potassium 3.4 L Chloride 92.5 L Carbon Dioxide 21 L BUN 33 H Creatinine 3.0 H Glucose POC Glucose Lactic Acid Calcium 6.6 L Phosphorus Magnesium 1.40 L Direct Bilirubin 0.9 H AST ALT Alkaline Phosphatase Lactate Dehydrogenase Troponin T C-Reactive Protein Total Protein 4.3 L Albumin 1.3 L Prealbumin Triglycerides Cholesterol LDL Cholesterol Direct HDL Cholesterol Urine pH Urine WBC (Auto) Urine Creatinine Urine Total Protein Fluid Total Protein Vancomycin Trough Rheumatoid Factor Complement C4 Miscellaneous Test Crossmatch 09/29/16 09/29/16 09/30/16 17:52 20:12 00:07 WBC RBC Hgb Hct MCV MCH MCHC RDW Plt Count Lymph % (Auto) [place] % (Auto) Lymph # [place] # Baso # Seg Neutrophils % Seg Neuts % (Manual) Lymphocytes % (Manual) Monocytes % (Manual) Eosinophils % (Manual) Basophils % (Manual) Nucleated RBC % Seg Neutrophils # Seg Neutrophils # Man Lymphocytes # (Manual) Monocytes # (Manual) Eosinophils # (Manual) PT INR Fibrinogen dRVVT Confirm Interp Factor V Activity POC ABG pH POC ABG pCO2 POC ABG pO2 ABG pO2 ABG HCO3 ABG Hemoglobin Oxyhemoglobin Sodium Potassium Chloride Carbon Dioxide BUN Creatinine Glucose POC Glucose 50 L 51 L Lactic Acid Calcium Phosphorus Magnesium Direct Bilirubin AST ALT Alkaline Phosphatase Lactate Dehydrogenase Troponin T 0.204 H* C-Reactive Protein Total Protein Albumin Prealbumin Triglycerides Cholesterol 31 L LDL Cholesterol Direct 4 L HDL Cholesterol 3 L Urine pH Urine WBC (Auto) Urine Creatinine Urine Total Protein Fluid Total Protein Vancomycin Trough Rheumatoid Factor Complement C4 Miscellaneous Test Crossmatch 09/30/16 09/30/16 09/30/16 01:30 05:15 06:10 WBC RBC Hgb Hct MCV MCH MCHC RDW Plt Count Lymph % (Auto) [place] % (Auto) Lymph # [place] # Baso # Seg Neutrophils % Seg Neuts % (Manual) Lymphocytes % (Manual) Monocytes % (Manual) Eosinophils % (Manual) Basophils % (Manual) Nucleated RBC % Seg Neutrophils # Seg Neutrophils # Man Lymphocytes # (Manual) Monocytes # (Manual) Eosinophils # (Manual) PT INR Fibrinogen dRVVT Confirm Interp Factor V Activity POC ABG pH POC ABG pCO2 POC ABG pO2 ABG pO2 ABG HCO3 ABG Hemoglobin Oxyhemoglobin Sodium 133 L Potassium 3.2 L Chloride 93.2 L Carbon Dioxide 19 L BUN 36 H Creatinine 3.2 H Glucose 104 H POC Glucose 167 H 146 H Lactic Acid Calcium 6.4 L Phosphorus Magnesium 1.60 L Direct Bilirubin AST ALT Alkaline Phosphatase Lactate Dehydrogenase Troponin T C-Reactive Protein Total Protein Albumin Prealbumin Triglycerides Cholesterol LDL Cholesterol Direct HDL Cholesterol Urine pH Urine WBC (Auto) Urine Creatinine Urine Total Protein Fluid Total Protein Vancomycin Trough Rheumatoid Factor Complement C4 Miscellaneous Test Crossmatch 09/30/16 09/30/16 09/30/16 11:26 13:39 18:38 WBC RBC Hgb Hct MCV MCH MCHC RDW Plt Count Lymph % (Auto) [place] % (Auto) Lymph # [place] # Baso # Seg Neutrophils % Seg Neuts % (Manual) Lymphocytes % (Manual) Monocytes % (Manual) Eosinophils % (Manual) Basophils % (Manual) Nucleated RBC % Seg Neutrophils # Seg Neutrophils # Man Lymphocytes # (Manual) Monocytes # (Manual) Eosinophils # (Manual) PT INR Fibrinogen dRVVT Confirm Interp Factor V Activity POC ABG pH 7.479 H POC ABG pCO2 29.8 L POC ABG pO2 117 H ABG pO2 ABG HCO3 ABG Hemoglobin Oxyhemoglobin Sodium Potassium Chloride Carbon Dioxide BUN Creatinine Glucose POC Glucose 140 H 122 H Lactic Acid Calcium Phosphorus Magnesium Direct Bilirubin AST ALT Alkaline Phosphatase Lactate Dehydrogenase Troponin T C-Reactive Protein Total Protein Albumin Prealbumin Triglycerides Cholesterol LDL Cholesterol Direct HDL Cholesterol Urine pH Urine WBC (Auto) Urine Creatinine Urine Total Protein Fluid Total Protein Vancomycin Trough Rheumatoid Factor Complement C4 Miscellaneous Test Crossmatch 10/01/16 10/01/16 10/01/16 06:00 06:00 12:37 WBC 12.6 H RBC 2.75 L Hgb 7.3 L Hct 23.3 L MCV MCH 27 L MCHC RDW 20.6 H Plt Count 72 L Lymph % (Auto) [place] % (Auto) Lymph # [place] # Baso # Seg Neutrophils % Seg Neuts % (Manual) 31.0 L Lymphocytes % (Manual) 8.0 L Monocytes % (Manual) Eosinophils % (Manual) Basophils % (Manual) Nucleated RBC % 3.0 H Seg Neutrophils # Seg Neutrophils # Man Lymphocytes # (Manual) 1.0 L Monocytes # (Manual) Eosinophils # (Manual) PT INR Fibrinogen dRVVT Confirm Interp Factor V Activity POC ABG pH POC ABG pCO2 POC ABG pO2 ABG pO2 ABG HCO3 ABG Hemoglobin Oxyhemoglobin Sodium 127 L Potassium Chloride 86.8 L Carbon Dioxide 20 L BUN 42 H Creatinine 3.5 H Glucose POC Glucose 65 L Lactic Acid Calcium 7.0 L Phosphorus Magnesium Direct Bilirubin AST ALT Alkaline Phosphatase Lactate Dehydrogenase Troponin T C-Reactive Protein Total Protein Albumin Prealbumin Triglycerides Cholesterol LDL Cholesterol Direct HDL Cholesterol Urine pH Urine WBC (Auto) Urine Creatinine Urine Total Protein Fluid Total Protein Vancomycin Trough Rheumatoid Factor Complement C4 Miscellaneous Test Crossmatch 10/01/16 10/01/16 10/02/16 17:39 23:32 00:59 WBC RBC Hgb Hct MCV MCH MCHC RDW Plt Count Lymph % (Auto) [place] % (Auto) Lymph # [place] # Baso # Seg Neutrophils % Seg Neuts % (Manual) Lymphocytes % (Manual) Monocytes % (Manual) Eosinophils % (Manual) Basophils % (Manual) Nucleated RBC % Seg Neutrophils # Seg Neutrophils # Man Lymphocytes # (Manual) Monocytes # (Manual) Eosinophils # (Manual) PT INR Fibrinogen dRVVT Confirm Interp Factor V Activity POC ABG pH POC ABG pCO2 POC ABG pO2 ABG pO2 ABG HCO3 ABG Hemoglobin Oxyhemoglobin Sodium Potassium Chloride Carbon Dioxide BUN Creatinine Glucose POC Glucose 107 H 52 L 145 H Lactic Acid Calcium Phosphorus Magnesium Direct Bilirubin AST ALT Alkaline Phosphatase Lactate Dehydrogenase Troponin T C-Reactive Protein Total Protein Albumin Prealbumin Triglycerides Cholesterol LDL Cholesterol Direct HDL Cholesterol Urine pH Urine WBC (Auto) Urine Creatinine Urine Total Protein Fluid Total Protein Vancomycin Trough Rheumatoid Factor Complement C4 Miscellaneous Test Crossmatch 10/02/16 10/02/16 10/02/16 10:30 10:50 10:50 WBC 14.7 H RBC 2.76 L Hgb 7.4 L Hct 23.6 L MCV MCH 27 L MCHC RDW 20.2 H Plt Count 79 L Lymph % (Auto) [place] % (Auto) Lymph # [place] # Baso # Seg Neutrophils % Seg Neuts % (Manual) 86.0 H Lymphocytes % (Manual) 6.0 L Monocytes % (Manual) Eosinophils % (Manual) Basophils % (Manual) Nucleated RBC % Seg Neutrophils # Seg Neutrophils # Man 12.6 H Lymphocytes # (Manual) 0.9 L Monocytes # (Manual) Eosinophils # (Manual) PT INR Fibrinogen dRVVT Confirm Interp Factor V Activity POC ABG pH 7.486 H POC ABG pCO2 30.1 L POC ABG pO2 108 H ABG pO2 ABG HCO3 ABG Hemoglobin Oxyhemoglobin Sodium 131 L Potassium 3.4 L Chloride 89.9 L Carbon Dioxide BUN 26 H Creatinine 2.6 H Glucose POC Glucose Lactic Acid Calcium 7.0 L Phosphorus Magnesium Direct Bilirubin AST ALT Alkaline Phosphatase Lactate Dehydrogenase Troponin T C-Reactive Protein Total Protein Albumin Prealbumin Triglycerides Cholesterol LDL Cholesterol Direct HDL Cholesterol Urine pH Urine WBC (Auto) Urine Creatinine Urine Total Protein Fluid Total Protein Vancomycin Trough Rheumatoid Factor Complement C4 Miscellaneous Test Crossmatch 10/02/16 10/03/16 10/03/16 23:45 00:45 05:10 WBC 12.9 H RBC 2.77 L Hgb 7.6 L Hct 23.7 L MCV MCH 27 L MCHC RDW 19.7 H Plt Count 89 L Lymph % (Auto) [place] % (Auto) Lymph # [place] # Baso # Seg Neutrophils % Seg Neuts % (Manual) Lymphocytes % (Manual) 8.0 L Monocytes % (Manual) Eosinophils % (Manual) Basophils % (Manual) Nucleated RBC % Seg Neutrophils # 11.9 H Seg Neutrophils # Man Lymphocytes # (Manual) 1.0 L Monocytes # (Manual) Eosinophils # (Manual) PT INR Fibrinogen dRVVT Confirm Interp Factor V Activity POC ABG pH POC ABG pCO2 POC ABG pO2 ABG pO2 ABG HCO3 ABG Hemoglobin Oxyhemoglobin Sodium Potassium Chloride Carbon Dioxide BUN Creatinine Glucose POC Glucose 55 L 199 H Lactic Acid Calcium Phosphorus Magnesium Direct Bilirubin AST ALT Alkaline Phosphatase Lactate Dehydrogenase Troponin T C-Reactive Protein Total Protein Albumin Prealbumin Triglycerides Cholesterol LDL Cholesterol Direct HDL Cholesterol Urine pH Urine WBC (Auto) Urine Creatinine Urine Total Protein Fluid Total Protein Vancomycin Trough Rheumatoid Factor Complement C4 Miscellaneous Test Crossmatch 10/03/16 10/03/16 10/03/16 05:10 12:14 13:18 WBC RBC Hgb Hct MCV MCH MCHC RDW Plt Count Lymph % (Auto) [place] % (Auto) Lymph # [place] # Baso # Seg Neutrophils % Seg Neuts % (Manual) Lymphocytes % (Manual) Monocytes % (Manual) Eosinophils % (Manual) Basophils % (Manual) Nucleated RBC % Seg Neutrophils # Seg Neutrophils # Man Lymphocytes # (Manual) Monocytes # (Manual) Eosinophils # (Manual) PT INR Fibrinogen dRVVT Confirm Interp Factor V Activity POC ABG pH POC ABG pCO2 POC ABG pO2 ABG pO2 ABG HCO3 ABG Hemoglobin Oxyhemoglobin Sodium 129 L Potassium 3.3 L Chloride 88.8 L Carbon Dioxide 20 L BUN 29 H Creatinine 2.8 H Glucose POC Glucose 68 L 127 H Lactic Acid Calcium 7.2 L Phosphorus Magnesium Direct Bilirubin AST ALT Alkaline Phosphatase Lactate Dehydrogenase Troponin T C-Reactive Protein Total Protein Albumin Prealbumin Triglycerides Cholesterol LDL Cholesterol Direct HDL Cholesterol Urine pH Urine WBC (Auto) Urine Creatinine Urine Total Protein Fluid Total Protein Vancomycin Trough Rheumatoid Factor Complement C4 Miscellaneous Test Crossmatch 10/03/16 10/03/16 10/03/16 14:42 18:21 19:09 WBC RBC Hgb Hct MCV MCH MCHC RDW Plt Count Lymph % (Auto) [place] % (Auto) Lymph # [place] # Baso # Seg Neutrophils % Seg Neuts % (Manual) Lymphocytes % (Manual) Monocytes % (Manual) Eosinophils % (Manual) Basophils % (Manual) Nucleated RBC % Seg Neutrophils # Seg Neutrophils # Man Lymphocytes # (Manual) Monocytes # (Manual) Eosinophils # (Manual) PT INR Fibrinogen dRVVT Confirm Interp Factor V Activity POC ABG pH 7.499 H POC ABG pCO2 28.4 L POC ABG pO2 44 L ABG pO2 ABG HCO3 ABG Hemoglobin Oxyhemoglobin Sodium Potassium Chloride Carbon Dioxide BUN Creatinine Glucose POC Glucose 64 L 205 H Lactic Acid Calcium Phosphorus Magnesium Direct Bilirubin AST ALT Alkaline Phosphatase Lactate Dehydrogenase Troponin T C-Reactive Protein Total Protein Albumin Prealbumin Triglycerides Cholesterol LDL Cholesterol Direct HDL Cholesterol Urine pH Urine WBC (Auto) Urine Creatinine Urine Total Protein Fluid Total Protein Vancomycin Trough Rheumatoid Factor Complement C4 Miscellaneous Test Crossmatch 10/03/16 10/04/16 10/04/16 23:33 04:18 06:30 WBC RBC 2.54 L Hgb 7.1 L Hct 21.7 L MCV MCH MCHC RDW 19.5 H Plt Count 76 L Lymph % (Auto) [place] % (Auto) Lymph # [place] # Baso # Seg Neutrophils % Seg Neuts % (Manual) 88.0 H Lymphocytes % (Manual) 6.0 L Monocytes % (Manual) Eosinophils % (Manual) Basophils % (Manual) Nucleated RBC % Seg Neutrophils # Seg Neutrophils # Man 8.8 H Lymphocytes # (Manual) 0.6 L Monocytes # (Manual) Eosinophils # (Manual) PT INR Fibrinogen dRVVT Confirm Interp Factor V Activity POC ABG pH 7.461 H POC ABG pCO2 33.6 L POC ABG pO2 211 H ABG pO2 ABG HCO3 ABG Hemoglobin Oxyhemoglobin Sodium Potassium Chloride Carbon Dioxide BUN Creatinine Glucose POC Glucose 136 H Lactic Acid Calcium Phosphorus Magnesium Direct Bilirubin AST ALT Alkaline Phosphatase Lactate Dehydrogenase Troponin T C-Reactive Protein Total Protein Albumin Prealbumin Triglycerides Cholesterol LDL Cholesterol Direct HDL Cholesterol Urine pH Urine WBC (Auto) Urine Creatinine Urine Total Protein Fluid Total Protein Vancomycin Trough Rheumatoid Factor Complement C4 Miscellaneous Test Crossmatch 10/04/16 10/04/16 10/04/16 06:30 11:45 17:54 WBC RBC Hgb Hct MCV MCH MCHC RDW Plt Count Lymph % (Auto) [place] % (Auto) Lymph # [place] # Baso # Seg Neutrophils % Seg Neuts % (Manual) Lymphocytes % (Manual) Monocytes % (Manual) Eosinophils % (Manual) Basophils % (Manual) Nucleated RBC % Seg Neutrophils # Seg Neutrophils # Man Lymphocytes # (Manual) Monocytes # (Manual) Eosinophils # (Manual) PT INR Fibrinogen dRVVT Confirm Interp Factor V Activity POC ABG pH POC ABG pCO2 POC ABG pO2 ABG pO2 ABG HCO3 ABG Hemoglobin Oxyhemoglobin Sodium 128 L Potassium Chloride 87.4 L Carbon Dioxide 20 L BUN 34 H Creatinine 2.9 H Glucose 127 H POC Glucose 158 H 160 H Lactic Acid Calcium 7.4 L Phosphorus Magnesium Direct Bilirubin AST ALT Alkaline Phosphatase Lactate Dehydrogenase Troponin T C-Reactive Protein Total Protein Albumin Prealbumin Triglycerides Cholesterol LDL Cholesterol Direct HDL Cholesterol Urine pH Urine WBC (Auto) Urine Creatinine Urine Total Protein Fluid Total Protein Vancomycin Trough Rheumatoid Factor Complement C4 Miscellaneous Test Crossmatch 10/04/16 10/05/16 10/05/16 23:25 04:30 05:00 WBC RBC 2.64 L Hgb 7.5 L Hct 22.6 L MCV MCH MCHC RDW 19.3 H Plt Count 80 L Lymph % (Auto) [place] % (Auto) Lymph # [place] # Baso # Seg Neutrophils % Seg Neuts % (Manual) Lymphocytes % (Manual) 12.0 L Monocytes % (Manual) Eosinophils % (Manual) Basophils % (Manual) Nucleated RBC % Seg Neutrophils # Seg Neutrophils # Man Lymphocytes # (Manual) Monocytes # (Manual) Eosinophils # (Manual) PT INR Fibrinogen dRVVT Confirm Interp Factor V Activity POC ABG pH 7.475 H POC ABG pCO2 33.3 L POC ABG pO2 140 H ABG pO2 ABG HCO3 ABG Hemoglobin Oxyhemoglobin Sodium Potassium Chloride Carbon Dioxide BUN Creatinine Glucose POC Glucose 141 H Lactic Acid Calcium Phosphorus Magnesium Direct Bilirubin AST ALT Alkaline Phosphatase Lactate Dehydrogenase Troponin T C-Reactive Protein Total Protein Albumin Prealbumin Triglycerides Cholesterol LDL Cholesterol Direct HDL Cholesterol Urine pH Urine WBC (Auto) Urine Creatinine Urine Total Protein Fluid Total Protein Vancomycin Trough Rheumatoid Factor Complement C4 Miscellaneous Test Crossmatch 10/05/16 10/05/16 10/05/16 05:00 05:09 12:58 WBC RBC Hgb Hct MCV MCH MCHC RDW Plt Count Lymph % (Auto) [place] % (Auto) Lymph # [place] # Baso # Seg Neutrophils % Seg Neuts % (Manual) Lymphocytes % (Manual) Monocytes % (Manual) Eosinophils % (Manual) Basophils % (Manual) Nucleated RBC % Seg Neutrophils # Seg Neutrophils # Man Lymphocytes # (Manual) Monocytes # (Manual) Eosinophils # (Manual) PT INR Fibrinogen dRVVT Confirm Interp Factor V Activity POC ABG pH POC ABG pCO2 POC ABG pO2 ABG pO2 ABG HCO3 ABG Hemoglobin Oxyhemoglobin Sodium 131 L Potassium Chloride 94.0 L Carbon Dioxide 20 L BUN 22 H Creatinine 2.0 H Glucose 123 H POC Glucose 166 H 179 H Lactic Acid Calcium 7.7 L Phosphorus 2.20 L D Magnesium Direct Bilirubin AST ALT Alkaline Phosphatase Lactate Dehydrogenase Troponin T C-Reactive Protein Total Protein Albumin Prealbumin Triglycerides Cholesterol LDL Cholesterol Direct HDL Cholesterol Urine pH Urine WBC (Auto) Urine Creatinine Urine Total Protein Fluid Total Protein Vancomycin Trough Rheumatoid Factor Complement C4 Miscellaneous Test Crossmatch 10/05/16 10/05/16 10/05/16 15:50 18:53 23:12 WBC RBC Hgb Hct MCV MCH MCHC RDW Plt Count Lymph % (Auto) [place] % (Auto) Lymph # [place] # Baso # Seg Neutrophils % Seg Neuts % (Manual) Lymphocytes % (Manual) Monocytes % (Manual) Eosinophils % (Manual) Basophils % (Manual) Nucleated RBC % Seg Neutrophils # Seg Neutrophils # Man Lymphocytes # (Manual) Monocytes # (Manual) Eosinophils # (Manual) PT INR Fibrinogen dRVVT Confirm Interp Factor V Activity POC ABG pH POC ABG pCO2 POC ABG pO2 ABG pO2 ABG HCO3 ABG Hemoglobin Oxyhemoglobin Sodium Potassium Chloride Carbon Dioxide BUN Creatinine Glucose POC Glucose 150 H 164 H Lactic Acid Calcium Phosphorus Magnesium Direct Bilirubin AST ALT Alkaline Phosphatase Lactate Dehydrogenase Troponin T C-Reactive Protein Total Protein Albumin Prealbumin Triglycerides Cholesterol LDL Cholesterol Direct HDL Cholesterol Urine pH Urine WBC (Auto) Urine Creatinine Urine Total Protein Fluid Total Protein Vancomycin Trough Rheumatoid Factor Complement C4 Miscellaneous Test Crossmatch See Detail 10/06/16 10/06/16 10/06/16 03:50 03:50 04:53 WBC RBC 3.00 L Hgb 8.6 L Hct 25.8 L MCV MCH MCHC RDW 17.9 H Plt Count 65 L Lymph % (Auto) [place] % (Auto) Lymph # [place] # Baso # Seg Neutrophils % Seg Neuts % (Manual) 30.0 L Lymphocytes % (Manual) 5.0 L Monocytes % (Manual) Eosinophils % (Manual) Basophils % (Manual) Nucleated RBC % Seg Neutrophils # Seg Neutrophils # Man Lymphocytes # (Manual) 0.4 L Monocytes # (Manual) Eosinophils # (Manual) PT INR Fibrinogen dRVVT Confirm Interp Factor V Activity POC ABG pH 7.310 L POC ABG pCO2 49.0 H POC ABG pO2 ABG pO2 ABG HCO3 ABG Hemoglobin Oxyhemoglobin Sodium 133 L Potassium Chloride 95.9 L Carbon Dioxide BUN 26 H Creatinine 2.0 H Glucose 116 H POC Glucose Lactic Acid Calcium 7.8 L Phosphorus Magnesium Direct Bilirubin AST ALT Alkaline Phosphatase Lactate Dehydrogenase Troponin T C-Reactive Protein Total Protein Albumin Prealbumin Triglycerides Cholesterol LDL Cholesterol Direct HDL Cholesterol Urine pH Urine WBC (Auto) Urine Creatinine Urine Total Protein Fluid Total Protein Vancomycin Trough Rheumatoid Factor Complement C4 Miscellaneous Test Crossmatch 10/06/16 10/06/16 10/06/16 05:23 11:52 18:34 WBC RBC Hgb Hct MCV MCH MCHC RDW Plt Count Lymph % (Auto) [place] % (Auto) Lymph # [place] # Baso # Seg Neutrophils % Seg Neuts % (Manual) Lymphocytes % (Manual) Monocytes % (Manual) Eosinophils % (Manual) Basophils % (Manual) Nucleated RBC % Seg Neutrophils # Seg Neutrophils # Man Lymphocytes # (Manual) Monocytes # (Manual) Eosinophils # (Manual) PT INR Fibrinogen dRVVT Confirm Interp Factor V Activity POC ABG pH POC ABG pCO2 POC ABG pO2 ABG pO2 ABG HCO3 ABG Hemoglobin Oxyhemoglobin Sodium Potassium Chloride Carbon Dioxide BUN Creatinine Glucose POC Glucose 126 H 116 H 129 H Lactic Acid Calcium Phosphorus Magnesium Direct Bilirubin AST ALT Alkaline Phosphatase Lactate Dehydrogenase Troponin T C-Reactive Protein Total Protein Albumin Prealbumin Triglycerides Cholesterol LDL Cholesterol Direct HDL Cholesterol Urine pH Urine WBC (Auto) Urine Creatinine Urine Total Protein Fluid Total Protein Vancomycin Trough Rheumatoid Factor Complement C4 Miscellaneous Test Crossmatch 10/07/16 10/07/16 10/07/16 03:45 05:00 10:00 WBC 17.0 H RBC 2.68 L Hgb 7.3 L Hct 25.3 L MCV MCH 27 L MCHC 29 L RDW 19.6 H Plt Count 74 L Lymph % (Auto) [place] % (Auto) Lymph # [place] # Baso # Seg Neutrophils % Seg Neuts % (Manual) Lymphocytes % (Manual) 12.0 L Monocytes % (Manual) Eosinophils % (Manual) Basophils % (Manual) Nucleated RBC % 4.0 H Seg Neutrophils # Seg Neutrophils # Man 10.7 H Lymphocytes # (Manual) Monocytes # (Manual) Eosinophils # (Manual) PT INR Fibrinogen dRVVT Confirm Interp Factor V Activity POC ABG pH POC ABG pCO2 POC ABG pO2 ABG pO2 ABG HCO3 ABG Hemoglobin Oxyhemoglobin Sodium 130 L Potassium 3.2 L Chloride 93.9 L Carbon Dioxide 20 L BUN 44 H Creatinine 2.7 H Glucose 129 H POC Glucose Lactic Acid Calcium 7.4 L Phosphorus Magnesium Direct Bilirubin AST ALT 6 L Alkaline Phosphatase 195 H Lactate Dehydrogenase Troponin T C-Reactive Protein Total Protein 4.9 L Albumin 1.0 L Prealbumin Triglycerides Cholesterol LDL Cholesterol Direct HDL Cholesterol Urine pH Urine WBC (Auto) Urine Creatinine Urine Total Protein Fluid Total Protein Vancomycin Trough Rheumatoid Factor Complement C4 Miscellaneous Test Flexitest 1 H Crossmatch 10/07/16 10/07/16 10/07/16 10:00 11:24 18:10 WBC RBC Hgb Hct MCV MCH MCHC RDW Plt Count Lymph % (Auto) [place] % (Auto) Lymph # [place] # Baso # Seg Neutrophils % Seg Neuts % (Manual) Lymphocytes % (Manual) Monocytes % (Manual) Eosinophils % (Manual) Basophils % (Manual) Nucleated RBC % Seg Neutrophils # Seg Neutrophils # Man Lymphocytes # (Manual) Monocytes # (Manual) Eosinophils # (Manual) PT INR Fibrinogen dRVVT Confirm Interp Factor V Activity POC ABG pH POC ABG pCO2 POC ABG pO2 ABG pO2 ABG HCO3 ABG Hemoglobin Oxyhemoglobin Sodium Potassium Chloride Carbon Dioxide BUN Creatinine Glucose POC Glucose 116 H 130 H Lactic Acid Calcium Phosphorus Magnesium Direct Bilirubin AST ALT Alkaline Phosphatase Lactate Dehydrogenase Troponin T C-Reactive Protein 19.40 H Total Protein Albumin Prealbumin Triglycerides Cholesterol LDL Cholesterol Direct HDL Cholesterol Urine pH Urine WBC (Auto) Urine Creatinine Urine Total Protein Fluid Total Protein Vancomycin Trough Rheumatoid Factor Complement C4 Miscellaneous Test Crossmatch 10/07/16 10/08/16 10/08/16 18:30 00:00 04:00 WBC RBC Hgb Hct MCV MCH MCHC RDW Plt Count Lymph % (Auto) [place] % (Auto) Lymph # [place] # Baso # Seg Neutrophils % Seg Neuts % (Manual) Lymphocytes % (Manual) Monocytes % (Manual) Eosinophils % (Manual) Basophils % (Manual) Nucleated RBC % Seg Neutrophils # Seg Neutrophils # Man Lymphocytes # (Manual) Monocytes # (Manual) Eosinophils # (Manual) PT INR Fibrinogen dRVVT Confirm Interp Factor V Activity POC ABG pH POC ABG pCO2 POC ABG pO2 ABG pO2 ABG HCO3 ABG Hemoglobin Oxyhemoglobin Sodium 132 L Potassium 3.3 L Chloride 93.6 L Carbon Dioxide 17 L BUN 59 H Creatinine 2.7 H Glucose 121 H POC Glucose 122 H Lactic Acid Calcium 7.6 L Phosphorus Magnesium Direct Bilirubin AST ALT Alkaline Phosphatase Lactate Dehydrogenase Troponin T C-Reactive Protein Total Protein Albumin Prealbumin Triglycerides Cholesterol LDL Cholesterol Direct HDL Cholesterol Urine pH Urine WBC (Auto) > 182.0 H Urine Creatinine Urine Total Protein Fluid Total Protein Vancomycin Trough Rheumatoid Factor Complement C4 Miscellaneous Test Crossmatch 10/08/16 10/08/16 10/08/16 04:30 05:30 11:51 WBC RBC 5.15 H Hgb 14.4 H D Hct 44.5 H D MCV MCH MCHC RDW 19.5 H Plt Count 56 L Lymph % (Auto) [place] % (Auto) Lymph # [place] # Baso # Seg Neutrophils % Seg Neuts % (Manual) 24.0 L Lymphocytes % (Manual) 8.0 L Monocytes % (Manual) Eosinophils % (Manual) Basophils % (Manual) Nucleated RBC % 9.0 H Seg Neutrophils # Seg Neutrophils # Man Lymphocytes # (Manual) 0.7 L Monocytes # (Manual) Eosinophils # (Manual) PT INR Fibrinogen dRVVT Confirm Interp Factor V Activity POC ABG pH POC ABG pCO2 POC ABG pO2 ABG pO2 ABG HCO3 ABG Hemoglobin Oxyhemoglobin Sodium Potassium Chloride Carbon Dioxide BUN Creatinine Glucose POC Glucose 125 H 150 H Lactic Acid Calcium Phosphorus Magnesium Direct Bilirubin AST ALT Alkaline Phosphatase Lactate Dehydrogenase Troponin T C-Reactive Protein Total Protein Albumin Prealbumin Triglycerides Cholesterol LDL Cholesterol Direct HDL Cholesterol Urine pH Urine WBC (Auto) Urine Creatinine Urine Total Protein Fluid Total Protein Vancomycin Trough Rheumatoid Factor Complement C4 Miscellaneous Test Crossmatch 10/08/16 10/08/16 10/08/16 12:49 17:07 19:30 WBC RBC Hgb 7.1 L D Hct 22.4 L D MCV MCH MCHC RDW Plt Count Lymph % (Auto) [place] % (Auto) Lymph # [place] # Baso # Seg Neutrophils % Seg Neuts % (Manual) Lymphocytes % (Manual) Monocytes % (Manual) Eosinophils % (Manual) Basophils % (Manual) Nucleated RBC % Seg Neutrophils # Seg Neutrophils # Man Lymphocytes # (Manual) Monocytes # (Manual) Eosinophils # (Manual) PT INR Fibrinogen dRVVT Confirm Interp Factor V Activity POC ABG pH POC ABG pCO2 28.2 L POC ABG pO2 111 H ABG pO2 ABG HCO3 ABG Hemoglobin Oxyhemoglobin Sodium Potassium Chloride Carbon Dioxide BUN Creatinine Glucose POC Glucose 145 H Lactic Acid Calcium Phosphorus Magnesium Direct Bilirubin AST ALT Alkaline Phosphatase Lactate Dehydrogenase Troponin T C-Reactive Protein Total Protein Albumin Prealbumin Triglycerides Cholesterol LDL Cholesterol Direct HDL Cholesterol Urine pH Urine WBC (Auto) Urine Creatinine Urine Total Protein Fluid Total Protein Vancomycin Trough Rheumatoid Factor Complement C4 Miscellaneous Test Crossmatch 10/08/16 10/09/16 10/09/16 19:30 03:45 03:45 WBC 12.6 H RBC 2.36 L Hgb 6.7 L Hct 21.1 L MCV MCH MCHC RDW 19.5 H Plt Count 75 L Lymph % (Auto) [place] % (Auto) Lymph # [place] # Baso # Seg Neutrophils % Seg Neuts % (Manual) Lymphocytes % (Manual) Monocytes % (Manual) 10.0 H Eosinophils % (Manual) Basophils % (Manual) Nucleated RBC % 3.0 H Seg Neutrophils # Seg Neutrophils # Man Lymphocytes # (Manual) Monocytes # (Manual) 1.3 H Eosinophils # (Manual) PT 18.0 H INR 1.41 H Fibrinogen dRVVT Confirm Interp Factor V Activity POC ABG pH POC ABG pCO2 POC ABG pO2 ABG pO2 ABG HCO3 ABG Hemoglobin Oxyhemoglobin Sodium 135 L Potassium Chloride Carbon Dioxide 17 L BUN 81 H Creatinine 3.2 H Glucose 109 H POC Glucose Lactic Acid Calcium 7.4 L Phosphorus 4.60 H D Magnesium Direct Bilirubin AST ALT Alkaline Phosphatase Lactate Dehydrogenase Troponin T C-Reactive Protein Total Protein Albumin Prealbumin Triglycerides Cholesterol LDL Cholesterol Direct HDL Cholesterol Urine pH Urine WBC (Auto) Urine Creatinine Urine Total Protein Fluid Total Protein Vancomycin Trough Rheumatoid Factor Complement C4 Miscellaneous Test Crossmatch 10/09/16 10/09/16 10/09/16 03:45 05:14 07:20 WBC RBC Hgb Hct MCV MCH MCHC RDW Plt Count Lymph % (Auto) [place] % (Auto) Lymph # [place] # Baso # Seg Neutrophils % Seg Neuts % (Manual) Lymphocytes % (Manual) Monocytes % (Manual) Eosinophils % (Manual) Basophils % (Manual) Nucleated RBC % Seg Neutrophils # Seg Neutrophils # Man Lymphocytes # (Manual) Monocytes # (Manual) Eosinophils # (Manual) PT 19.0 H INR 1.51 H Fibrinogen dRVVT Confirm Interp Factor V Activity POC ABG pH POC ABG pCO2 POC ABG pO2 ABG pO2 ABG HCO3 ABG Hemoglobin Oxyhemoglobin Sodium Potassium Chloride Carbon Dioxide BUN Creatinine Glucose POC Glucose 151 H Lactic Acid Calcium Phosphorus Magnesium Direct Bilirubin AST ALT Alkaline Phosphatase Lactate Dehydrogenase Troponin T C-Reactive Protein Total Protein Albumin Prealbumin Triglycerides Cholesterol LDL Cholesterol Direct HDL Cholesterol Urine pH Urine WBC (Auto) Urine Creatinine Urine Total Protein Fluid Total Protein Vancomycin Trough Rheumatoid Factor Complement C4 Miscellaneous Test Crossmatch See Detail 10/09/16 10/09/16 10/09/16 11:46 16:20 16:43 WBC RBC Hgb 7.2 L Hct 22.2 L MCV MCH MCHC RDW Plt Count Lymph % (Auto) [place] % (Auto) Lymph # [place] # Baso # Seg Neutrophils % Seg Neuts % (Manual) Lymphocytes % (Manual) Monocytes % (Manual) Eosinophils % (Manual) Basophils % (Manual) Nucleated RBC % Seg Neutrophils # Seg Neutrophils # Man Lymphocytes # (Manual) Monocytes # (Manual) Eosinophils # (Manual) PT INR Fibrinogen dRVVT Confirm Interp Factor V Activity POC ABG pH POC ABG pCO2 POC ABG pO2 ABG pO2 ABG HCO3 ABG Hemoglobin Oxyhemoglobin Sodium Potassium Chloride Carbon Dioxide BUN Creatinine Glucose POC Glucose 133 H 141 H Lactic Acid Calcium Phosphorus Magnesium Direct Bilirubin AST ALT Alkaline Phosphatase Lactate Dehydrogenase Troponin T C-Reactive Protein Total Protein Albumin Prealbumin Triglycerides Cholesterol LDL Cholesterol Direct HDL Cholesterol Urine pH Urine WBC (Auto) Urine Creatinine Urine Total Protein Fluid Total Protein Vancomycin Trough Rheumatoid Factor Complement C4 Miscellaneous Test Crossmatch 10/10/16 10/10/16 10/10/16 05:00 05:00 11:19 WBC 18.5 H RBC 2.19 L Hgb 6.4 L Hct 19.6 L* MCV MCH MCHC RDW 19.3 H Plt Count 93 L Lymph % (Auto) [place] % (Auto) Lymph # [place] # Baso # Seg Neutrophils % Seg Neuts % (Manual) Lymphocytes % (Manual) 10.0 L Monocytes % (Manual) Eosinophils % (Manual) Basophils % (Manual) Nucleated RBC % 4.0 H Seg Neutrophils # Seg Neutrophils # Man 11.3 H Lymphocytes # (Manual) Monocytes # (Manual) Eosinophils # (Manual) PT INR Fibrinogen dRVVT Confirm Interp Factor V Activity POC ABG pH POC ABG pCO2 POC ABG pO2 ABG pO2 ABG HCO3 ABG Hemoglobin Oxyhemoglobin Sodium Potassium 5.7 H D Chloride Carbon Dioxide 16 L BUN 94 H Creatinine 3.1 H Glucose 131 H POC Glucose 153 H Lactic Acid Calcium 8.2 L Phosphorus 5.10 H Magnesium 2.40 H Direct Bilirubin 0.3 H AST ALT < 5 L Alkaline Phosphatase 319 H Lactate Dehydrogenase Troponin T C-Reactive Protein Total Protein 5.1 L Albumin 1.0 L Prealbumin Triglycerides Cholesterol LDL Cholesterol Direct HDL Cholesterol Urine pH Urine WBC (Auto) Urine Creatinine Urine Total Protein Fluid Total Protein Vancomycin Trough Rheumatoid Factor Complement C4 Miscellaneous Test Crossmatch 10/10/16 10/10/16 10/11/16 17:50 23:30 04:15 WBC RBC Hgb Hct MCV MCH MCHC RDW Plt Count Lymph % (Auto) [place] % (Auto) Lymph # [place] # Baso # Seg Neutrophils % Seg Neuts % (Manual) Lymphocytes % (Manual) Monocytes % (Manual) Eosinophils % (Manual) Basophils % (Manual) Nucleated RBC % Seg Neutrophils # Seg Neutrophils # Man Lymphocytes # (Manual) Monocytes # (Manual) Eosinophils # (Manual) PT INR Fibrinogen dRVVT Confirm Interp Factor V Activity POC ABG pH POC ABG pCO2 POC ABG pO2 ABG pO2 ABG HCO3 ABG Hemoglobin Oxyhemoglobin Sodium Potassium Chloride 96.4 L Carbon Dioxide 21 L BUN 57 H Creatinine 2.1 H Glucose 151 H POC Glucose 146 H 141 H Lactic Acid Calcium 8.3 L Phosphorus Magnesium Direct Bilirubin AST ALT Alkaline Phosphatase Lactate Dehydrogenase Troponin T C-Reactive Protein Total Protein Albumin Prealbumin Triglycerides Cholesterol LDL Cholesterol Direct HDL Cholesterol Urine pH Urine WBC (Auto) Urine Creatinine Urine Total Protein Fluid Total Protein Vancomycin Trough Rheumatoid Factor Complement C4 Miscellaneous Test Crossmatch 10/11/16 10/11/16 10/11/16 04:15 04:15 05:30 WBC 28.3 H RBC 3.12 L Hgb 9.3 L Hct 28.7 L D MCV MCH MCHC RDW 17.7 H Plt Count 128 L Lymph % (Auto) [place] % (Auto) Lymph # [place] # Baso # Seg Neutrophils % Seg Neuts % (Manual) Lymphocytes % (Manual) Monocytes % (Manual) Eosinophils % (Manual) Basophils % (Manual) Nucleated RBC % Seg Neutrophils # Seg Neutrophils # Man Lymphocytes # (Manual) Monocytes # (Manual) Eosinophils # (Manual) PT INR Fibrinogen dRVVT Confirm Interp Factor V Activity POC ABG pH POC ABG pCO2 POC ABG pO2 ABG pO2 ABG HCO3 ABG Hemoglobin Oxyhemoglobin Sodium Potassium Chloride Carbon Dioxide BUN Creatinine Glucose POC Glucose 167 H Lactic Acid Calcium Phosphorus Magnesium Direct Bilirubin AST ALT Alkaline Phosphatase Lactate Dehydrogenase Troponin T C-Reactive Protein 15.80 H Total Protein Albumin Prealbumin Triglycerides Cholesterol LDL Cholesterol Direct HDL Cholesterol Urine pH Urine WBC (Auto) Urine Creatinine Urine Total Protein Fluid Total Protein Vancomycin Trough Rheumatoid Factor Complement C4 Miscellaneous Test Crossmatch 10/11/16 10/11/16 10/11/16 11:40 15:49 23:57 WBC RBC Hgb Hct MCV MCH MCHC RDW Plt Count Lymph % (Auto) [place] % (Auto) Lymph # [place] # Baso # Seg Neutrophils % Seg Neuts % (Manual) Lymphocytes % (Manual) Monocytes % (Manual) Eosinophils % (Manual) Basophils % (Manual) Nucleated RBC % Seg Neutrophils # Seg Neutrophils # Man Lymphocytes # (Manual) Monocytes # (Manual) Eosinophils # (Manual) PT INR Fibrinogen dRVVT Confirm Interp Factor V Activity POC ABG pH POC ABG pCO2 POC ABG pO2 ABG pO2 ABG HCO3 ABG Hemoglobin Oxyhemoglobin Sodium Potassium Chloride Carbon Dioxide BUN Creatinine Glucose POC Glucose 139 H 168 H 161 H Lactic Acid Calcium Phosphorus Magnesium Direct Bilirubin AST ALT Alkaline Phosphatase Lactate Dehydrogenase Troponin T C-Reactive Protein Total Protein Albumin Prealbumin Triglycerides Cholesterol LDL Cholesterol Direct HDL Cholesterol Urine pH Urine WBC (Auto) Urine Creatinine Urine Total Protein Fluid Total Protein Vancomycin Trough Rheumatoid Factor Complement C4 Miscellaneous Test Crossmatch 10/12/16 10/12/16 10/12/16 04:40 04:40 05:44 WBC 22.5 H RBC 2.88 L Hgb 8.8 L Hct 26.8 L MCV MCH MCHC RDW 17.8 H Plt Count Lymph % (Auto) [place] % (Auto) Lymph # [place] # Baso # Seg Neutrophils % Seg Neuts % (Manual) Lymphocytes % (Manual) Monocytes % (Manual) Eosinophils % (Manual) Basophils % (Manual) Nucleated RBC % Seg Neutrophils # Seg Neutrophils # Man Lymphocytes # (Manual) Monocytes # (Manual) Eosinophils # (Manual) PT INR Fibrinogen dRVVT Confirm Interp Factor V Activity POC ABG pH POC ABG pCO2 POC ABG pO2 ABG pO2 ABG HCO3 ABG Hemoglobin Oxyhemoglobin Sodium 134 L Potassium Chloride 93.0 L Carbon Dioxide BUN 74 H Creatinine 2.5 H Glucose 137 H POC Glucose 158 H Lactic Acid Calcium 8.2 L Phosphorus Magnesium Direct Bilirubin AST ALT Alkaline Phosphatase Lactate Dehydrogenase Troponin T C-Reactive Protein Total Protein Albumin Prealbumin Triglycerides Cholesterol LDL Cholesterol Direct HDL Cholesterol Urine pH Urine WBC (Auto) Urine Creatinine Urine Total Protein Fluid Total Protein Vancomycin Trough Rheumatoid Factor Complement C4 Miscellaneous Test Crossmatch 10/12/16 10/12/16 10/12/16 12:27 18:18 23:46 WBC RBC Hgb Hct MCV MCH MCHC RDW Plt Count Lymph % (Auto) [place] % (Auto) Lymph # [place] # Baso # Seg Neutrophils % Seg Neuts % (Manual) Lymphocytes % (Manual) Monocytes % (Manual) Eosinophils % (Manual) Basophils % (Manual) Nucleated RBC % Seg Neutrophils # Seg Neutrophils # Man Lymphocytes # (Manual) Monocytes # (Manual) Eosinophils # (Manual) PT INR Fibrinogen dRVVT Confirm Interp Factor V Activity POC ABG pH POC ABG pCO2 POC ABG pO2 ABG pO2 ABG HCO3 ABG Hemoglobin Oxyhemoglobin Sodium Potassium Chloride Carbon Dioxide BUN Creatinine Glucose POC Glucose 153 H 140 H 150 H Lactic Acid Calcium Phosphorus Magnesium Direct Bilirubin AST ALT Alkaline Phosphatase Lactate Dehydrogenase Troponin T C-Reactive Protein Total Protein Albumin Prealbumin Triglycerides Cholesterol LDL Cholesterol Direct HDL Cholesterol Urine pH Urine WBC (Auto) Urine Creatinine Urine Total Protein Fluid Total Protein Vancomycin Trough Rheumatoid Factor Complement C4 Miscellaneous Test Crossmatch 10/13/16 10/13/16 10/13/16 06:22 09:20 12:29 WBC RBC Hgb Hct MCV MCH MCHC RDW Plt Count Lymph % (Auto) [place] % (Auto) Lymph # [place] # Baso # Seg Neutrophils % Seg Neuts % (Manual) Lymphocytes % (Manual) Monocytes % (Manual) Eosinophils % (Manual) Basophils % (Manual) Nucleated RBC % Seg Neutrophils # Seg Neutrophils # Man Lymphocytes # (Manual) Monocytes # (Manual) Eosinophils # (Manual) PT INR Fibrinogen dRVVT Confirm Interp Factor V Activity POC ABG pH POC ABG pCO2 POC ABG pO2 ABG pO2 ABG HCO3 ABG Hemoglobin Oxyhemoglobin Sodium Potassium Chloride Carbon Dioxide BUN Creatinine Glucose POC Glucose 165 H 193 H Lactic Acid Calcium Phosphorus Magnesium Direct Bilirubin AST ALT Alkaline Phosphatase Lactate Dehydrogenase Troponin T C-Reactive Protein Total Protein Albumin Prealbumin Triglycerides Cholesterol LDL Cholesterol Direct HDL Cholesterol Urine pH Urine WBC (Auto) Urine Creatinine Urine Total Protein Fluid Total Protein Vancomycin Trough Rheumatoid Factor Complement C4 Miscellaneous Test Flexitest 1 H Crossmatch 10/13/16 10/13/16 10/13/16 18:09 Unknown Unknown WBC 23.4 H RBC 2.83 L Hgb 8.7 L Hct 26.1 L MCV MCH MCHC RDW 18.1 H Plt Count Lymph % (Auto) [place] % (Auto) Lymph # [place] # Baso # Seg Neutrophils % Seg Neuts % (Manual) Lymphocytes % (Manual) Monocytes % (Manual) Eosinophils % (Manual) Basophils % (Manual) Nucleated RBC % Seg Neutrophils # Seg Neutrophils # Man Lymphocytes # (Manual) Monocytes # (Manual) Eosinophils # (Manual) PT INR Fibrinogen dRVVT Confirm Interp Factor V Activity POC ABG pH POC ABG pCO2 POC ABG pO2 ABG pO2 ABG HCO3 ABG Hemoglobin Oxyhemoglobin Sodium Potassium Chloride 95.8 L Carbon Dioxide BUN 82 H Creatinine 2.6 H Glucose 152 H POC Glucose 166 H Lactic Acid Calcium Phosphorus Magnesium Direct Bilirubin AST ALT Alkaline Phosphatase Lactate Dehydrogenase Troponin T C-Reactive Protein Total Protein Albumin Prealbumin Triglycerides Cholesterol LDL Cholesterol Direct HDL Cholesterol Urine pH Urine WBC (Auto) Urine Creatinine Urine Total Protein Fluid Total Protein Vancomycin Trough Rheumatoid Factor Complement C4 Miscellaneous Test Crossmatch 10/14/16 10/14/16 10/14/16 05:38 06:35 08:10 WBC 20.7 H RBC 2.81 L Hgb 8.4 L Hct 27.2 L MCV MCH MCHC RDW 19.4 H Plt Count Lymph % (Auto) [place] % (Auto) Lymph # [place] # Baso # Seg Neutrophils % Seg Neuts % (Manual) Lymphocytes % (Manual) Monocytes % (Manual) Eosinophils % (Manual) Basophils % (Manual) Nucleated RBC % Seg Neutrophils # Seg Neutrophils # Man Lymphocytes # (Manual) Monocytes # (Manual) Eosinophils # (Manual) PT INR Fibrinogen dRVVT Confirm Interp Factor V Activity POC ABG pH POC ABG pCO2 POC ABG pO2 ABG pO2 ABG HCO3 ABG Hemoglobin Oxyhemoglobin Sodium Potassium Chloride Carbon Dioxide BUN 58 H Creatinine 1.9 H Glucose 169 H POC Glucose 195 H Lactic Acid Calcium Phosphorus Magnesium Direct Bilirubin AST ALT Alkaline Phosphatase Lactate Dehydrogenase Troponin T C-Reactive Protein Total Protein Albumin Prealbumin Triglycerides Cholesterol LDL Cholesterol Direct HDL Cholesterol Urine pH Urine WBC (Auto) Urine Creatinine Urine Total Protein Fluid Total Protein Vancomycin Trough Rheumatoid Factor Complement C4 Miscellaneous Test Crossmatch 10/14/16 10/14/16 10/14/16 11:44 17:13 23:28 WBC RBC Hgb Hct MCV MCH MCHC RDW Plt Count Lymph % (Auto) [place] % (Auto) Lymph # [place] # Baso # Seg Neutrophils % Seg Neuts % (Manual) Lymphocytes % (Manual) Monocytes % (Manual) Eosinophils % (Manual) Basophils % (Manual) Nucleated RBC % Seg Neutrophils # Seg Neutrophils # Man Lymphocytes # (Manual) Monocytes # (Manual) Eosinophils # (Manual) PT INR Fibrinogen dRVVT Confirm Interp Factor V Activity POC ABG pH POC ABG pCO2 POC ABG pO2 ABG pO2 ABG HCO3 ABG Hemoglobin Oxyhemoglobin Sodium Potassium Chloride Carbon Dioxide BUN Creatinine Glucose POC Glucose 174 H 121 H 151 H Lactic Acid Calcium Phosphorus Magnesium Direct Bilirubin AST ALT Alkaline Phosphatase Lactate Dehydrogenase Troponin T C-Reactive Protein Total Protein Albumin Prealbumin Triglycerides Cholesterol LDL Cholesterol Direct HDL Cholesterol Urine pH Urine WBC (Auto) Urine Creatinine Urine Total Protein Fluid Total Protein Vancomycin Trough Rheumatoid Factor Complement C4 Miscellaneous Test Crossmatch 10/15/16 10/15/16 10/15/16 05:06 12:26 17:48 WBC RBC Hgb Hct MCV MCH MCHC RDW Plt Count Lymph % (Auto) [place] % (Auto) Lymph # [place] # Baso # Seg Neutrophils % Seg Neuts % (Manual) Lymphocytes % (Manual) Monocytes % (Manual) Eosinophils % (Manual) Basophils % (Manual) Nucleated RBC % Seg Neutrophils # Seg Neutrophils # Man Lymphocytes # (Manual) Monocytes # (Manual) Eosinophils # (Manual) PT INR Fibrinogen dRVVT Confirm Interp Factor V Activity POC ABG pH POC ABG pCO2 POC ABG pO2 ABG pO2 ABG HCO3 ABG Hemoglobin Oxyhemoglobin Sodium Potassium Chloride Carbon Dioxide BUN Creatinine Glucose POC Glucose 151 H 149 H 153 H Lactic Acid Calcium Phosphorus Magnesium Direct Bilirubin AST ALT Alkaline Phosphatase Lactate Dehydrogenase Troponin T C-Reactive Protein Total Protein Albumin Prealbumin Triglycerides Cholesterol LDL Cholesterol Direct HDL Cholesterol Urine pH Urine WBC (Auto) Urine Creatinine Urine Total Protein Fluid Total Protein Vancomycin Trough Rheumatoid Factor Complement C4 Miscellaneous Test Crossmatch 10/15/16 10/15/16 10/16/16 Unknown Unknown 00:02 WBC 23.4 H RBC 2.78 L Hgb 8.5 L Hct 25.7 L MCV MCH MCHC RDW 18.7 H Plt Count Lymph % (Auto) [place] % (Auto) Lymph # [place] # Baso # Seg Neutrophils % Seg Neuts % (Manual) Lymphocytes % (Manual) Monocytes % (Manual) Eosinophils % (Manual) Basophils % (Manual) Nucleated RBC % Seg Neutrophils # Seg Neutrophils # Man Lymphocytes # (Manual) Monocytes # (Manual) Eosinophils # (Manual) PT INR Fibrinogen dRVVT Confirm Interp Factor V Activity POC ABG pH POC ABG pCO2 POC ABG pO2 ABG pO2 ABG HCO3 ABG Hemoglobin Oxyhemoglobin Sodium Potassium Chloride Carbon Dioxide BUN 73 H Creatinine 2.3 H Glucose 120 H POC Glucose 137 H Lactic Acid Calcium Phosphorus Magnesium Direct Bilirubin AST ALT Alkaline Phosphatase Lactate Dehydrogenase Troponin T C-Reactive Protein Total Protein Albumin Prealbumin Triglycerides Cholesterol LDL Cholesterol Direct HDL Cholesterol Urine pH Urine WBC (Auto) Urine Creatinine Urine Total Protein Fluid Total Protein Vancomycin Trough Rheumatoid Factor Complement C4 Miscellaneous Test Crossmatch 10/16/16 10/16/16 10/16/16 05:44 06:25 06:25 WBC 22.5 H RBC 2.76 L Hgb 8.3 L Hct 25.2 L MCV MCH MCHC RDW 18.3 H Plt Count Lymph % (Auto) [place] % (Auto) Lymph # [place] # Baso # Seg Neutrophils % Seg Neuts % (Manual) Lymphocytes % (Manual) Monocytes % (Manual) Eosinophils % (Manual) Basophils % (Manual) Nucleated RBC % Seg Neutrophils # Seg Neutrophils # Man Lymphocytes # (Manual) Monocytes # (Manual) Eosinophils # (Manual) PT INR Fibrinogen dRVVT Confirm Interp Factor V Activity POC ABG pH POC ABG pCO2 POC ABG pO2 ABG pO2 ABG HCO3 ABG Hemoglobin Oxyhemoglobin Sodium Potassium Chloride Carbon Dioxide BUN 92 H Creatinine 3.0 H Glucose 138 H POC Glucose 110 H Lactic Acid Calcium Phosphorus Magnesium Direct Bilirubin AST ALT Alkaline Phosphatase Lactate Dehydrogenase Troponin T C-Reactive Protein Total Protein Albumin Prealbumin Triglycerides Cholesterol LDL Cholesterol Direct HDL Cholesterol Urine pH Urine WBC (Auto) Urine Creatinine Urine Total Protein Fluid Total Protein Vancomycin Trough Rheumatoid Factor Complement C4 Miscellaneous Test Crossmatch 10/16/16 10/16/16 10/16/16 11:27 11:48 17:36 WBC RBC Hgb Hct MCV MCH MCHC RDW Plt Count Lymph % (Auto) [place] % (Auto) Lymph # [place] # Baso # Seg Neutrophils % Seg Neuts % (Manual) Lymphocytes % (Manual) Monocytes % (Manual) Eosinophils % (Manual) Basophils % (Manual) Nucleated RBC % Seg Neutrophils # Seg Neutrophils # Man Lymphocytes # (Manual) Monocytes # (Manual) Eosinophils # (Manual) PT INR Fibrinogen dRVVT Confirm Interp Factor V Activity POC ABG pH 7.582 H POC ABG pCO2 27.4 L POC ABG pO2 110 H ABG pO2 ABG HCO3 ABG Hemoglobin Oxyhemoglobin Sodium Potassium Chloride Carbon Dioxide BUN Creatinine Glucose POC Glucose 121 H 133 H Lactic Acid Calcium Phosphorus Magnesium Direct Bilirubin AST ALT Alkaline Phosphatase Lactate Dehydrogenase Troponin T C-Reactive Protein Total Protein Albumin Prealbumin Triglycerides Cholesterol LDL Cholesterol Direct HDL Cholesterol Urine pH Urine WBC (Auto) Urine Creatinine Urine Total Protein Fluid Total Protein Vancomycin Trough Rheumatoid Factor Complement C4 Miscellaneous Test Crossmatch 10/16/16 10/17/16 10/17/16 20:48 04:24 04:24 WBC 21.4 H RBC 2.72 L Hgb 8.0 L Hct 25.2 L MCV MCH MCHC RDW 18.0 H Plt Count Lymph % (Auto) [place] % (Auto) Lymph # [place] # Baso # Seg Neutrophils % Seg Neuts % (Manual) Lymphocytes % (Manual) Monocytes % (Manual) Eosinophils % (Manual) Basophils % (Manual) Nucleated RBC % Seg Neutrophils # Seg Neutrophils # Man Lymphocytes # (Manual) Monocytes # (Manual) Eosinophils # (Manual) PT INR Fibrinogen dRVVT Confirm Interp Factor V Activity POC ABG pH 7.561 H POC ABG pCO2 24.4 L POC ABG pO2 77 L ABG pO2 ABG HCO3 ABG Hemoglobin Oxyhemoglobin Sodium 148 H Potassium Chloride Carbon Dioxide BUN 104 H Creatinine 3.0 H Glucose 149 H POC Glucose Lactic Acid Calcium Phosphorus Magnesium Direct Bilirubin AST ALT Alkaline Phosphatase 138 H Lactate Dehydrogenase Troponin T C-Reactive Protein Total Protein 6.2 L Albumin 1.5 L Prealbumin Triglycerides Cholesterol LDL Cholesterol Direct HDL Cholesterol Urine pH Urine WBC (Auto) Urine Creatinine Urine Total Protein Fluid Total Protein Vancomycin Trough Rheumatoid Factor Complement C4 Miscellaneous Test Crossmatch 10/17/16 10/17/16 10/17/16 06:02 12:17 17:14 WBC RBC Hgb Hct MCV MCH MCHC RDW Plt Count Lymph % (Auto) [place] % (Auto) Lymph # [place] # Baso # Seg Neutrophils % Seg Neuts % (Manual) Lymphocytes % (Manual) Monocytes % (Manual) Eosinophils % (Manual) Basophils % (Manual) Nucleated RBC % Seg Neutrophils # Seg Neutrophils # Man Lymphocytes # (Manual) Monocytes # (Manual) Eosinophils # (Manual) PT INR Fibrinogen dRVVT Confirm Interp Factor V Activity POC ABG pH POC ABG pCO2 POC ABG pO2 ABG pO2 ABG HCO3 ABG Hemoglobin Oxyhemoglobin Sodium Potassium Chloride Carbon Dioxide BUN Creatinine Glucose POC Glucose 170 H 167 H 126 H Lactic Acid Calcium Phosphorus Magnesium Direct Bilirubin AST ALT Alkaline Phosphatase Lactate Dehydrogenase Troponin T C-Reactive Protein Total Protein Albumin Prealbumin Triglycerides Cholesterol LDL Cholesterol Direct HDL Cholesterol Urine pH Urine WBC (Auto) Urine Creatinine Urine Total Protein Fluid Total Protein Vancomycin Trough Rheumatoid Factor Complement C4 Miscellaneous Test Crossmatch 10/17/16 10/18/16 10/18/16 23:17 04:00 04:00 WBC 20.7 H RBC 2.47 L Hgb 7.4 L Hct 22.9 L MCV MCH MCHC RDW 17.5 H Plt Count Lymph % (Auto) [place] % (Auto) Lymph # [place] # Baso # Seg Neutrophils % Seg Neuts % (Manual) Lymphocytes % (Manual) Monocytes % (Manual) Eosinophils % (Manual) Basophils % (Manual) Nucleated RBC % Seg Neutrophils # Seg Neutrophils # Man Lymphocytes # (Manual) Monocytes # (Manual) Eosinophils # (Manual) PT INR Fibrinogen dRVVT Confirm Interp Factor V Activity POC ABG pH POC ABG pCO2 POC ABG pO2 ABG pO2 ABG HCO3 ABG Hemoglobin Oxyhemoglobin Sodium 149 H Potassium Chloride 107.9 H Carbon Dioxide 20 L BUN 117 H Creatinine 3.2 H Glucose 119 H POC Glucose 121 H Lactic Acid Calcium Phosphorus Magnesium Direct Bilirubin AST ALT Alkaline Phosphatase Lactate Dehydrogenase Troponin T C-Reactive Protein Total Protein Albumin Prealbumin Triglycerides Cholesterol LDL Cholesterol Direct HDL Cholesterol Urine pH Urine WBC (Auto) Urine Creatinine Urine Total Protein Fluid Total Protein Vancomycin Trough Rheumatoid Factor Complement C4 Miscellaneous Test Crossmatch 10/18/16 10/18/16 10/18/16 05:23 10:46 17:30 WBC RBC Hgb Hct MCV MCH MCHC RDW Plt Count Lymph % (Auto) [place] % (Auto) Lymph # [place] # Baso # Seg Neutrophils % Seg Neuts % (Manual) Lymphocytes % (Manual) Monocytes % (Manual) Eosinophils % (Manual) Basophils % (Manual) Nucleated RBC % Seg Neutrophils # Seg Neutrophils # Man Lymphocytes # (Manual) Monocytes # (Manual) Eosinophils # (Manual) PT INR Fibrinogen dRVVT Confirm Interp Factor V Activity POC ABG pH POC ABG pCO2 POC ABG pO2 ABG pO2 ABG HCO3 ABG Hemoglobin Oxyhemoglobin Sodium Potassium Chloride Carbon Dioxide BUN Creatinine Glucose POC Glucose 119 H 155 H 124 H Lactic Acid Calcium Phosphorus Magnesium Direct Bilirubin AST ALT Alkaline Phosphatase Lactate Dehydrogenase Troponin T C-Reactive Protein Total Protein Albumin Prealbumin Triglycerides Cholesterol LDL Cholesterol Direct HDL Cholesterol Urine pH Urine WBC (Auto) Urine Creatinine Urine Total Protein Fluid Total Protein Vancomycin Trough Rheumatoid Factor Complement C4 Miscellaneous Test Crossmatch 10/19/16 10/19/16 10/19/16 04:00 04:00 05:25 WBC 17.4 H RBC 2.54 L Hgb 7.7 L Hct 23.6 L MCV MCH MCHC RDW 17.3 H Plt Count Lymph % (Auto) [place] % (Auto) Lymph # [place] # Baso # Seg Neutrophils % Seg Neuts % (Manual) Lymphocytes % (Manual) Monocytes % (Manual) Eosinophils % (Manual) Basophils % (Manual) Nucleated RBC % Seg Neutrophils # Seg Neutrophils # Man Lymphocytes # (Manual) Monocytes # (Manual) Eosinophils # (Manual) PT INR Fibrinogen dRVVT Confirm Interp Factor V Activity POC ABG pH POC ABG pCO2 POC ABG pO2 ABG pO2 ABG HCO3 ABG Hemoglobin Oxyhemoglobin Sodium Potassium Chloride Carbon Dioxide BUN 72 H Creatinine 2.1 H Glucose 116 H POC Glucose 119 H Lactic Acid Calcium Phosphorus Magnesium Direct Bilirubin AST ALT Alkaline Phosphatase Lactate Dehydrogenase Troponin T C-Reactive Protein Total Protein Albumin Prealbumin Triglycerides Cholesterol LDL Cholesterol Direct HDL Cholesterol Urine pH Urine WBC (Auto) Urine Creatinine Urine Total Protein Fluid Total Protein Vancomycin Trough Rheumatoid Factor Complement C4 Miscellaneous Test Crossmatch 10/19/16 10/19/16 10/20/16 11:46 23:59 06:00 WBC RBC Hgb Hct MCV MCH MCHC RDW Plt Count Lymph % (Auto) [place] % (Auto) Lymph # [place] # Baso # Seg Neutrophils % Seg Neuts % (Manual) Lymphocytes % (Manual) Monocytes % (Manual) Eosinophils % (Manual) Basophils % (Manual) Nucleated RBC % Seg Neutrophils # Seg Neutrophils # Man Lymphocytes # (Manual) Monocytes # (Manual) Eosinophils # (Manual) PT INR Fibrinogen dRVVT Confirm Interp Factor V Activity POC ABG pH POC ABG pCO2 POC ABG pO2 ABG pO2 ABG HCO3 ABG Hemoglobin Oxyhemoglobin Sodium Potassium Chloride Carbon Dioxide 17 L BUN 94 H Creatinine 2.7 H Glucose POC Glucose 116 H 117 H Lactic Acid Calcium Phosphorus Magnesium Direct Bilirubin AST ALT Alkaline Phosphatase Lactate Dehydrogenase Troponin T C-Reactive Protein Total Protein Albumin Prealbumin Triglycerides Cholesterol LDL Cholesterol Direct HDL Cholesterol Urine pH Urine WBC (Auto) Urine Creatinine Urine Total Protein Fluid Total Protein Vancomycin Trough Rheumatoid Factor Complement C4 Miscellaneous Test Crossmatch 10/20/16 10/20/16 10/20/16 06:00 11:49 16:00 WBC 19.7 H RBC 2.51 L Hgb 7.7 L Hct 23.5 L MCV MCH MCHC RDW 17.5 H Plt Count Lymph % (Auto) [place] % (Auto) Lymph # [place] # Baso # Seg Neutrophils % Seg Neuts % (Manual) Lymphocytes % (Manual) Monocytes % (Manual) Eosinophils % (Manual) Basophils % (Manual) Nucleated RBC % Seg Neutrophils # Seg Neutrophils # Man Lymphocytes # (Manual) Monocytes # (Manual) Eosinophils # (Manual) PT INR Fibrinogen dRVVT Confirm Interp Factor V Activity POC ABG pH POC ABG pCO2 POC ABG pO2 ABG pO2 ABG HCO3 ABG Hemoglobin Oxyhemoglobin Sodium Potassium Chloride Carbon Dioxide BUN Creatinine Glucose POC Glucose 117 H Lactic Acid Calcium Phosphorus Magnesium Direct Bilirubin AST ALT Alkaline Phosphatase Lactate Dehydrogenase Troponin T C-Reactive Protein Total Protein Albumin Prealbumin Triglycerides Cholesterol LDL Cholesterol Direct HDL Cholesterol Urine pH Urine WBC (Auto) Urine Creatinine Urine Total Protein Fluid Total Protein Vancomycin Trough Rheumatoid Factor Complement C4 Miscellaneous Test Flexitest 1 H Crossmatch 10/20/16 10/20/16 10/21/16 18:36 23:39 04:00 WBC RBC Hgb Hct MCV MCH MCHC RDW Plt Count Lymph % (Auto) [place] % (Auto) Lymph # [place] # Baso # Seg Neutrophils % Seg Neuts % (Manual) Lymphocytes % (Manual) Monocytes % (Manual) Eosinophils % (Manual) Basophils % (Manual) Nucleated RBC % Seg Neutrophils # Seg Neutrophils # Man Lymphocytes # (Manual) Monocytes # (Manual) Eosinophils # (Manual) PT INR Fibrinogen dRVVT Confirm Interp Factor V Activity POC ABG pH POC ABG pCO2 POC ABG pO2 ABG pO2 ABG HCO3 ABG Hemoglobin Oxyhemoglobin Sodium Potassium 5.4 H D Chloride Carbon Dioxide 15 L BUN 110 H Creatinine 3.0 H Glucose POC Glucose 127 H 114 H Lactic Acid Calcium Phosphorus Magnesium Direct Bilirubin AST ALT Alkaline Phosphatase Lactate Dehydrogenase Troponin T C-Reactive Protein Total Protein Albumin Prealbumin Triglycerides Cholesterol LDL Cholesterol Direct HDL Cholesterol Urine pH Urine WBC (Auto) Urine Creatinine Urine Total Protein Fluid Total Protein Vancomycin Trough Rheumatoid Factor Complement C4 Miscellaneous Test Crossmatch 09/01/17 09/01/17 09/02/17 05:54 23:46 05:18 WBC RBC Hgb Hct MCV MCH MCHC RDW Plt Count Lymph % (Auto) [place] % (Auto) Lymph # [place] # Baso # Seg Neutrophils % Seg Neuts % (Manual) Lymphocytes % (Manual) Monocytes % (Manual) Eosinophils % (Manual) Basophils % (Manual) Nucleated RBC % Seg Neutrophils # Seg Neutrophils # Man Lymphocytes # (Manual) Monocytes # (Manual) Eosinophils # (Manual) PT INR Fibrinogen dRVVT Confirm Interp Factor V Activity POC ABG pH POC ABG pCO2 POC ABG pO2 ABG pO2 ABG HCO3 ABG Hemoglobin Oxyhemoglobin Sodium Potassium Chloride Carbon Dioxide BUN Creatinine Glucose POC Glucose 119 H 108 H 109 H Lactic Acid Calcium Phosphorus Magnesium Direct Bilirubin AST ALT Alkaline Phosphatase Lactate Dehydrogenase Troponin T C-Reactive Protein Total Protein Albumin Prealbumin Triglycerides Cholesterol LDL Cholesterol Direct HDL Cholesterol Urine pH Urine WBC (Auto) Urine Creatinine Urine Total Protein Fluid Total Protein Vancomycin Trough Rheumatoid Factor Complement C4 Miscellaneous Test Crossmatch 10/22/16 10/22/16 10/22/16 06:40 06:40 06:40 WBC 14.0 H RBC 2.03 L Hgb 7.0 L Hct 20.5 L MCV 98 H MCH 34 H MCHC 35 H RDW 17.8 H Plt Count Lymph % (Auto) [place] % (Auto) 9.9 H Lymph # [place] # 1.4 H Baso # 0.2 H Seg Neutrophils % 72.0 H Seg Neuts % (Manual) Lymphocytes % (Manual) Monocytes % (Manual) Eosinophils % (Manual) Basophils % (Manual) Nucleated RBC % Seg Neutrophils # 10.0 H Seg Neutrophils # Man Lymphocytes # (Manual) Monocytes # (Manual) Eosinophils # (Manual) PT INR Fibrinogen dRVVT Confirm Interp Factor V Activity POC ABG pH POC ABG pCO2 POC ABG pO2 ABG pO2 ABG HCO3 ABG Hemoglobin Oxyhemoglobin Sodium 130 L D Potassium Chloride 92.4 L Carbon Dioxide 20 L BUN 50 H Creatinine 1.6 H Glucose 589 H* POC Glucose Lactic Acid Calcium 7.8 L D Phosphorus Magnesium 1.60 L Direct Bilirubin AST ALT Alkaline Phosphatase Lactate Dehydrogenase Troponin T C-Reactive Protein Total Protein Albumin Prealbumin Triglycerides Cholesterol LDL Cholesterol Direct HDL Cholesterol Urine pH Urine WBC (Auto) Urine Creatinine Urine Total Protein Fluid Total Protein Vancomycin Trough Rheumatoid Factor Complement C4 Miscellaneous Test Crossmatch 10/22/16 10/22/16 10/22/16 11:39 16:44 23:36 WBC RBC Hgb Hct MCV MCH MCHC RDW Plt Count Lymph % (Auto) [place] % (Auto) Lymph # [place] # Baso # Seg Neutrophils % Seg Neuts % (Manual) Lymphocytes % (Manual) Monocytes % (Manual) Eosinophils % (Manual) Basophils % (Manual) Nucleated RBC % Seg Neutrophils # Seg Neutrophils # Man Lymphocytes # (Manual) Monocytes # (Manual) Eosinophils # (Manual) PT INR Fibrinogen dRVVT Confirm Interp Factor V Activity POC ABG pH POC ABG pCO2 POC ABG pO2 ABG pO2 ABG HCO3 ABG Hemoglobin Oxyhemoglobin Sodium Potassium Chloride Carbon Dioxide BUN Creatinine Glucose POC Glucose 142 H 163 H 123 H Lactic Acid Calcium Phosphorus Magnesium Direct Bilirubin AST ALT Alkaline Phosphatase Lactate Dehydrogenase Troponin T C-Reactive Protein Total Protein Albumin Prealbumin Triglycerides Cholesterol LDL Cholesterol Direct HDL Cholesterol Urine pH Urine WBC (Auto) Urine Creatinine Urine Total Protein Fluid Total Protein Vancomycin Trough Rheumatoid Factor Complement C4 Miscellaneous Test Crossmatch 10/23/16 10/23/16 10/23/16 04:58 06:00 12:12 WBC RBC Hgb Hct MCV MCH MCHC RDW Plt Count Lymph % (Auto) [place] % (Auto) Lymph # [place] # Baso # Seg Neutrophils % Seg Neuts % (Manual) Lymphocytes % (Manual) Monocytes % (Manual) Eosinophils % (Manual) Basophils % (Manual) Nucleated RBC % Seg Neutrophils # Seg Neutrophils # Man Lymphocytes # (Manual) Monocytes # (Manual) Eosinophils # (Manual) PT INR Fibrinogen dRVVT Confirm Interp Factor V Activity POC ABG pH POC ABG pCO2 POC ABG pO2 ABG pO2 ABG HCO3 ABG Hemoglobin Oxyhemoglobin Sodium 133 L Potassium 3.5 L Chloride 96.1 L Carbon Dioxide 18 L BUN 76 H Creatinine 2.1 H Glucose POC Glucose 133 H 138 H Lactic Acid Calcium 8.3 L Phosphorus Magnesium Direct Bilirubin AST ALT Alkaline Phosphatase Lactate Dehydrogenase Troponin T C-Reactive Protein Total Protein Albumin Prealbumin Triglycerides Cholesterol LDL Cholesterol Direct HDL Cholesterol Urine pH Urine WBC (Auto) Urine Creatinine Urine Total Protein Fluid Total Protein Vancomycin Trough Rheumatoid Factor Complement C4 Miscellaneous Test Crossmatch 10/23/16 10/23/16 10/24/16 16:53 23:37 04:00 WBC RBC Hgb Hct MCV MCH MCHC RDW Plt Count Lymph % (Auto) [place] % (Auto) Lymph # [place] # Baso # Seg Neutrophils % Seg Neuts % (Manual) Lymphocytes % (Manual) Monocytes % (Manual) Eosinophils % (Manual) Basophils % (Manual) Nucleated RBC % Seg Neutrophils # Seg Neutrophils # Man Lymphocytes # (Manual) Monocytes # (Manual) Eosinophils # (Manual) PT INR Fibrinogen dRVVT Confirm Interp Factor V Activity POC ABG pH POC ABG pCO2 POC ABG pO2 ABG pO2 ABG HCO3 ABG Hemoglobin Oxyhemoglobin Sodium 131 L Potassium Chloride 94.5 L Carbon Dioxide 19 L BUN 97 H Creatinine 2.6 H Glucose 110 H POC Glucose 125 H 123 H Lactic Acid Calcium 8.3 L Phosphorus Magnesium Direct Bilirubin AST ALT Alkaline Phosphatase Lactate Dehydrogenase Troponin T C-Reactive Protein Total Protein Albumin Prealbumin Triglycerides Cholesterol LDL Cholesterol Direct HDL Cholesterol Urine pH Urine WBC (Auto) Urine Creatinine Urine Total Protein Fluid Total Protein Vancomycin Trough Rheumatoid Factor Complement C4 Miscellaneous Test Crossmatch 10/24/16 10/24/16 10/24/16 07:49 11:39 17:52 WBC RBC Hgb 6.0 L Hct 19.7 L* MCV MCH MCHC RDW Plt Count Lymph % (Auto) [place] % (Auto) Lymph # [place] # Baso # Seg Neutrophils % Seg Neuts % (Manual) Lymphocytes % (Manual) Monocytes % (Manual) Eosinophils % (Manual) Basophils % (Manual) Nucleated RBC % Seg Neutrophils # Seg Neutrophils # Man Lymphocytes # (Manual) Monocytes # (Manual) Eosinophils # (Manual) PT INR Fibrinogen dRVVT Confirm Interp Factor V Activity POC ABG pH POC ABG pCO2 POC ABG pO2 ABG pO2 ABG HCO3 ABG Hemoglobin Oxyhemoglobin Sodium Potassium Chloride Carbon Dioxide BUN Creatinine Glucose POC Glucose 106 H 158 H Lactic Acid Calcium Phosphorus Magnesium Direct Bilirubin AST ALT Alkaline Phosphatase Lactate Dehydrogenase Troponin T C-Reactive Protein Total Protein Albumin Prealbumin Triglycerides Cholesterol LDL Cholesterol Direct HDL Cholesterol Urine pH Urine WBC (Auto) Urine Creatinine Urine Total Protein Fluid Total Protein Vancomycin Trough Rheumatoid Factor Complement C4 Miscellaneous Test Crossmatch 10/24/16 10/24/16 10/24/16 20:00 22:27 Unknown WBC RBC Hgb 9.4 L D Hct 27.5 L D MCV MCH MCHC RDW Plt Count Lymph % (Auto) [place] % (Auto) Lymph # [place] # Baso # Seg Neutrophils % Seg Neuts % (Manual) Lymphocytes % (Manual) Monocytes % (Manual) Eosinophils % (Manual) Basophils % (Manual) Nucleated RBC % Seg Neutrophils # Seg Neutrophils # Man Lymphocytes # (Manual) Monocytes # (Manual) Eosinophils # (Manual) PT INR Fibrinogen dRVVT Confirm Interp Factor V Activity POC ABG pH POC ABG pCO2 POC ABG pO2 ABG pO2 ABG HCO3 ABG Hemoglobin Oxyhemoglobin Sodium Potassium Chloride Carbon Dioxide BUN Creatinine Glucose POC Glucose 125 H Lactic Acid Calcium Phosphorus Magnesium Direct Bilirubin AST ALT Alkaline Phosphatase Lactate Dehydrogenase Troponin T C-Reactive Protein Total Protein Albumin Prealbumin Triglycerides Cholesterol LDL Cholesterol Direct HDL Cholesterol Urine pH Urine WBC (Auto) Urine Creatinine Urine Total Protein Fluid Total Protein Vancomycin Trough Rheumatoid Factor Complement C4 Miscellaneous Test Crossmatch See Detail 10/25/16 10/25/16 10/25/16 04:00 04:00 04:00 WBC 14.2 H RBC 2.98 L Hgb 9.0 L Hct 26.2 L MCV MCH MCHC RDW 16.6 H Plt Count Lymph % (Auto) [place] % (Auto) 10.7 H Lymph # [place] # 1.5 H Baso # Seg Neutrophils % 73.6 H Seg Neuts % (Manual) Lymphocytes % (Manual) Monocytes % (Manual) Eosinophils % (Manual) Basophils % (Manual) Nucleated RBC % Seg Neutrophils # 10.5 H Seg Neutrophils # Man Lymphocytes # (Manual) Monocytes # (Manual) Eosinophils # (Manual) PT INR Fibrinogen dRVVT Confirm Interp Factor V Activity POC ABG pH POC ABG pCO2 POC ABG pO2 ABG pO2 ABG HCO3 ABG Hemoglobin Oxyhemoglobin Sodium 132 L Potassium Chloride 94.7 L Carbon Dioxide BUN 51 H Creatinine 1.6 H Glucose 130 H POC Glucose Lactic Acid Calcium 8.3 L Phosphorus 1.60 L D Magnesium Direct Bilirubin AST ALT Alkaline Phosphatase Lactate Dehydrogenase Troponin T C-Reactive Protein Total Protein Albumin Prealbumin Triglycerides Cholesterol LDL Cholesterol Direct HDL Cholesterol Urine pH Urine WBC (Auto) Urine Creatinine Urine Total Protein Fluid Total Protein Vancomycin Trough Rheumatoid Factor Complement C4 Miscellaneous Test Crossmatch 10/25/16 10/25/16 10/25/16 04:32 11:48 17:22 WBC RBC Hgb Hct MCV MCH MCHC RDW Plt Count Lymph % (Auto) [place] % (Auto) Lymph # [place] # Baso # Seg Neutrophils % Seg Neuts % (Manual) Lymphocytes % (Manual) Monocytes % (Manual) Eosinophils % (Manual) Basophils % (Manual) Nucleated RBC % Seg Neutrophils # Seg Neutrophils # Man Lymphocytes # (Manual) Monocytes # (Manual) Eosinophils # (Manual) PT INR Fibrinogen dRVVT Confirm Interp Factor V Activity POC ABG pH POC ABG pCO2 POC ABG pO2 ABG pO2 ABG HCO3 ABG Hemoglobin Oxyhemoglobin Sodium Potassium Chloride Carbon Dioxide BUN Creatinine Glucose POC Glucose 124 H 171 H 120 H Lactic Acid Calcium Phosphorus Magnesium Direct Bilirubin AST ALT Alkaline Phosphatase Lactate Dehydrogenase Troponin T C-Reactive Protein Total Protein Albumin Prealbumin Triglycerides Cholesterol LDL Cholesterol Direct HDL Cholesterol Urine pH Urine WBC (Auto) Urine Creatinine Urine Total Protein Fluid Total Protein Vancomycin Trough Rheumatoid Factor Complement C4 Miscellaneous Test Crossmatch 10/26/16 10/26/16 10/26/16 04:54 07:06 07:06 WBC 16.9 H RBC 3.06 L Hgb 9.1 L Hct 26.9 L MCV MCH MCHC RDW 16.9 H Plt Count Lymph % (Auto) [place] % (Auto) Lymph # [place] # Baso # Seg Neutrophils % Seg Neuts % (Manual) 71.0 H Lymphocytes % (Manual) 5.0 L Monocytes % (Manual) 12.0 H Eosinophils % (Manual) Basophils % (Manual) Nucleated RBC % Seg Neutrophils # Seg Neutrophils # Man 12.0 H Lymphocytes # (Manual) 0.8 L Monocytes # (Manual) 2.0 H Eosinophils # (Manual) PT INR Fibrinogen dRVVT Confirm Interp Factor V Activity POC ABG pH POC ABG pCO2 POC ABG pO2 ABG pO2 ABG HCO3 ABG Hemoglobin Oxyhemoglobin Sodium 135 L Potassium Chloride 97.1 L Carbon Dioxide BUN 73 H Creatinine 2.2 H Glucose 117 H POC Glucose 123 H Lactic Acid Calcium Phosphorus 1.70 L Magnesium Direct Bilirubin AST ALT Alkaline Phosphatase Lactate Dehydrogenase Troponin T C-Reactive Protein Total Protein Albumin Prealbumin Triglycerides Cholesterol LDL Cholesterol Direct HDL Cholesterol Urine pH Urine WBC (Auto) Urine Creatinine Urine Total Protein Fluid Total Protein Vancomycin Trough Rheumatoid Factor Complement C4 Miscellaneous Test Crossmatch 10/26/16 10/26/16 10/26/16 12:12 17:29 23:42 WBC RBC Hgb Hct MCV MCH MCHC RDW Plt Count Lymph % (Auto) [place] % (Auto) Lymph # [place] # Baso # Seg Neutrophils % Seg Neuts % (Manual) Lymphocytes % (Manual) Monocytes % (Manual) Eosinophils % (Manual) Basophils % (Manual) Nucleated RBC % Seg Neutrophils # Seg Neutrophils # Man Lymphocytes # (Manual) Monocytes # (Manual) Eosinophils # (Manual) PT INR Fibrinogen dRVVT Confirm Interp Factor V Activity POC ABG pH POC ABG pCO2 POC ABG pO2 ABG pO2 ABG HCO3 ABG Hemoglobin Oxyhemoglobin Sodium Potassium Chloride Carbon Dioxide BUN Creatinine Glucose POC Glucose 126 H 161 H 118 H Lactic Acid Calcium Phosphorus Magnesium Direct Bilirubin AST ALT Alkaline Phosphatase Lactate Dehydrogenase Troponin T C-Reactive Protein Total Protein Albumin Prealbumin Triglycerides Cholesterol LDL Cholesterol Direct HDL Cholesterol Urine pH Urine WBC (Auto) Urine Creatinine Urine Total Protein Fluid Total Protein Vancomycin Trough Rheumatoid Factor Complement C4 Miscellaneous Test Crossmatch 10/27/16 10/27/16 10/27/16 05:03 06:30 06:30 WBC 13.9 H RBC 3.09 L Hgb 9.2 L Hct 27.5 L MCV MCH MCHC RDW 17.0 H Plt Count Lymph % (Auto) [place] % (Auto) Lymph # [place] # Baso # Seg Neutrophils % Seg Neuts % (Manual) 78.0 H Lymphocytes % (Manual) Monocytes % (Manual) Eosinophils % (Manual) Basophils % (Manual) Nucleated RBC % 2.0 H Seg Neutrophils # Seg Neutrophils # Man 10.8 H Lymphocytes # (Manual) Monocytes # (Manual) 1.0 H Eosinophils # (Manual) PT INR Fibrinogen dRVVT Confirm Interp Factor V Activity POC ABG pH POC ABG pCO2 POC ABG pO2 ABG pO2 ABG HCO3 ABG Hemoglobin Oxyhemoglobin Sodium Potassium Chloride Carbon Dioxide BUN 40 H Creatinine 1.5 H Glucose 135 H POC Glucose 107 H Lactic Acid Calcium 8.3 L Phosphorus 1.30 L D Magnesium Direct Bilirubin AST ALT Alkaline Phosphatase Lactate Dehydrogenase Troponin T C-Reactive Protein Total Protein Albumin Prealbumin Triglycerides Cholesterol LDL Cholesterol Direct HDL Cholesterol Urine pH Urine WBC (Auto) Urine Creatinine Urine Total Protein Fluid Total Protein Vancomycin Trough Rheumatoid Factor Complement C4 Miscellaneous Test Crossmatch 10/27/16 10/27/16 10/27/16 13:27 18:07 23:40 WBC RBC Hgb Hct MCV MCH MCHC RDW Plt Count Lymph % (Auto) [place] % (Auto) Lymph # [place] # Baso # Seg Neutrophils % Seg Neuts % (Manual) Lymphocytes % (Manual) Monocytes % (Manual) Eosinophils % (Manual) Basophils % (Manual) Nucleated RBC % Seg Neutrophils # Seg Neutrophils # Man Lymphocytes # (Manual) Monocytes # (Manual) Eosinophils # (Manual) PT INR Fibrinogen dRVVT Confirm Interp Factor V Activity POC ABG pH POC ABG pCO2 POC ABG pO2 ABG pO2 ABG HCO3 ABG Hemoglobin Oxyhemoglobin Sodium Potassium Chloride Carbon Dioxide BUN Creatinine Glucose POC Glucose 117 H 121 H 118 H Lactic Acid Calcium Phosphorus Magnesium Direct Bilirubin AST ALT Alkaline Phosphatase Lactate Dehydrogenase Troponin T C-Reactive Protein Total Protein Albumin Prealbumin Triglycerides Cholesterol LDL Cholesterol Direct HDL Cholesterol Urine pH Urine WBC (Auto) Urine Creatinine Urine Total Protein Fluid Total Protein Vancomycin Trough Rheumatoid Factor Complement C4 Miscellaneous Test Crossmatch 10/28/16 10/28/16 10/28/16 05:48 06:45 06:45 WBC 14.7 H RBC 3.05 L Hgb 9.0 L Hct 26.9 L MCV MCH MCHC RDW 16.8 H Plt Count Lymph % (Auto) 8.2 L [place] % (Auto) 8.4 H Lymph # [place] # 1.2 H Baso # Seg Neutrophils % 81.9 H Seg Neuts % (Manual) Lymphocytes % (Manual) Monocytes % (Manual) Eosinophils % (Manual) Basophils % (Manual) Nucleated RBC % Seg Neutrophils # 12.1 H Seg Neutrophils # Man Lymphocytes # (Manual) Monocytes # (Manual) Eosinophils # (Manual) PT INR Fibrinogen dRVVT Confirm Interp Factor V Activity POC ABG pH POC ABG pCO2 POC ABG pO2 ABG pO2 ABG HCO3 ABG Hemoglobin Oxyhemoglobin Sodium Potassium Chloride Carbon Dioxide BUN 60 H Creatinine 1.9 H Glucose 120 H POC Glucose 114 H Lactic Acid Calcium Phosphorus Magnesium Direct Bilirubin AST ALT Alkaline Phosphatase Lactate Dehydrogenase Troponin T C-Reactive Protein Total Protein Albumin Prealbumin Triglycerides Cholesterol LDL Cholesterol Direct HDL Cholesterol Urine pH Urine WBC (Auto) Urine Creatinine Urine Total Protein Fluid Total Protein Vancomycin Trough Rheumatoid Factor Complement C4 Miscellaneous Test Crossmatch 10/28/16 10/28/16 10/29/16 17:08 23:50 05:10 WBC RBC Hgb Hct MCV MCH MCHC RDW Plt Count Lymph % (Auto) [place] % (Auto) Lymph # [place] # Baso # Seg Neutrophils % Seg Neuts % (Manual) Lymphocytes % (Manual) Monocytes % (Manual) Eosinophils % (Manual) Basophils % (Manual) Nucleated RBC % Seg Neutrophils # Seg Neutrophils # Man Lymphocytes # (Manual) Monocytes # (Manual) Eosinophils # (Manual) PT INR Fibrinogen dRVVT Confirm Interp Factor V Activity POC ABG pH POC ABG pCO2 POC ABG pO2 ABG pO2 ABG HCO3 ABG Hemoglobin Oxyhemoglobin Sodium Potassium Chloride Carbon Dioxide BUN Creatinine Glucose POC Glucose 109 H 110 H 124 H Lactic Acid Calcium Phosphorus Magnesium Direct Bilirubin AST ALT Alkaline Phosphatase Lactate Dehydrogenase Troponin T C-Reactive Protein Total Protein Albumin Prealbumin Triglycerides Cholesterol LDL Cholesterol Direct HDL Cholesterol Urine pH Urine WBC (Auto) Urine Creatinine Urine Total Protein Fluid Total Protein Vancomycin Trough Rheumatoid Factor Complement C4 Miscellaneous Test Crossmatch 10/29/16 10/29/16 10/29/16 07:45 07:45 12:19 WBC 14.7 H RBC 3.15 L Hgb 9.3 L Hct 28.9 L MCV MCH MCHC RDW 17.0 H Plt Count Lymph % (Auto) 11.9 L [place] % (Auto) 8.6 H Lymph # [place] # 1.3 H Baso # Seg Neutrophils % 78.1 H Seg Neuts % (Manual) Lymphocytes % (Manual) Monocytes % (Manual) Eosinophils % (Manual) Basophils % (Manual) Nucleated RBC % Seg Neutrophils # 11.4 H Seg Neutrophils # Man Lymphocytes # (Manual) Monocytes # (Manual) Eosinophils # (Manual) PT INR Fibrinogen dRVVT Confirm Interp Factor V Activity POC ABG pH POC ABG pCO2 POC ABG pO2 ABG pO2 ABG HCO3 ABG Hemoglobin Oxyhemoglobin Sodium Potassium 5.1 H Chloride Carbon Dioxide 19 L BUN 78 H Creatinine 2.2 H Glucose 116 H POC Glucose 118 H Lactic Acid Calcium Phosphorus Magnesium Direct Bilirubin AST ALT Alkaline Phosphatase Lactate Dehydrogenase Troponin T C-Reactive Protein Total Protein Albumin Prealbumin Triglycerides Cholesterol LDL Cholesterol Direct HDL Cholesterol Urine pH Urine WBC (Auto) Urine Creatinine Urine Total Protein Fluid Total Protein Vancomycin Trough Rheumatoid Factor Complement C4 Miscellaneous Test Crossmatch 10/29/16 10/30/16 10/30/16 17:49 01:52 03:28 WBC RBC Hgb Hct MCV MCH MCHC RDW Plt Count Lymph % (Auto) [place] % (Auto) Lymph # [place] # Baso # Seg Neutrophils % Seg Neuts % (Manual) Lymphocytes % (Manual) Monocytes % (Manual) Eosinophils % (Manual) Basophils % (Manual) Nucleated RBC % Seg Neutrophils # Seg Neutrophils # Man Lymphocytes # (Manual) Monocytes # (Manual) Eosinophils # (Manual) PT INR Fibrinogen dRVVT Confirm Interp Factor V Activity POC ABG pH POC ABG pCO2 POC ABG pO2 ABG pO2 ABG HCO3 ABG Hemoglobin Oxyhemoglobin Sodium Potassium 5.4 H Chloride 97.5 L Carbon Dioxide 19 L BUN 90 H Creatinine 2.5 H Glucose POC Glucose 120 H 129 H Lactic Acid Calcium Phosphorus 5.20 H Magnesium Direct Bilirubin AST ALT Alkaline Phosphatase Lactate Dehydrogenase Troponin T C-Reactive Protein Total Protein Albumin Prealbumin Triglycerides Cholesterol LDL Cholesterol Direct HDL Cholesterol Urine pH Urine WBC (Auto) Urine Creatinine Urine Total Protein Fluid Total Protein Vancomycin Trough Rheumatoid Factor Complement C4 Miscellaneous Test Crossmatch 10/30/16 10/30/16 10/30/16 03:28 08:19 08:19 WBC 11.6 H 15.9 H RBC 2.75 L 2.82 L Hgb 7.9 L 8.3 L Hct 24.2 L 25.2 L MCV MCH MCHC RDW 16.7 H 17.2 H Plt Count Lymph % (Auto) [place] % (Auto) 9.8 H Lymph # [place] # 1.1 H Baso # Seg Neutrophils % 74.2 H Seg Neuts % (Manual) Lymphocytes % (Manual) Monocytes % (Manual) Eosinophils % (Manual) Basophils % (Manual) Nucleated RBC % Seg Neutrophils # 8.6 H Seg Neutrophils # Man Lymphocytes # (Manual) Monocytes # (Manual) Eosinophils # (Manual) PT INR Fibrinogen dRVVT Confirm Interp Factor V Activity POC ABG pH POC ABG pCO2 POC ABG pO2 ABG pO2 ABG HCO3 ABG Hemoglobin Oxyhemoglobin Sodium Potassium 5.3 H Chloride 97.4 L Carbon Dioxide 19 L BUN 93 H Creatinine 2.6 H Glucose POC Glucose Lactic Acid Calcium Phosphorus Magnesium Direct Bilirubin AST ALT Alkaline Phosphatase Lactate Dehydrogenase Troponin T C-Reactive Protein Total Protein Albumin Prealbumin Triglycerides Cholesterol LDL Cholesterol Direct HDL Cholesterol Urine pH Urine WBC (Auto) Urine Creatinine Urine Total Protein Fluid Total Protein Vancomycin Trough Rheumatoid Factor Complement C4 Miscellaneous Test Crossmatch 10/30/16 10/30/16 10/31/16 17:11 23:56 00:40 WBC RBC Hgb Hct MCV MCH MCHC RDW Plt Count Lymph % (Auto) [place] % (Auto) Lymph # [place] # Baso # Seg Neutrophils % Seg Neuts % (Manual) Lymphocytes % (Manual) Monocytes % (Manual) Eosinophils % (Manual) Basophils % (Manual) Nucleated RBC % Seg Neutrophils # Seg Neutrophils # Man Lymphocytes # (Manual) Monocytes # (Manual) Eosinophils # (Manual) PT INR Fibrinogen dRVVT Confirm Interp Factor V Activity POC ABG pH POC ABG pCO2 POC ABG pO2 ABG pO2 ABG HCO3 ABG Hemoglobin Oxyhemoglobin Sodium Potassium Chloride Carbon Dioxide BUN Creatinine Glucose POC Glucose 106 H 117 H 120 H Lactic Acid Calcium Phosphorus Magnesium Direct Bilirubin AST ALT Alkaline Phosphatase Lactate Dehydrogenase Troponin T C-Reactive Protein Total Protein Albumin Prealbumin Triglycerides Cholesterol LDL Cholesterol Direct HDL Cholesterol Urine pH Urine WBC (Auto) Urine Creatinine Urine Total Protein Fluid Total Protein Vancomycin Trough Rheumatoid Factor Complement C4 Miscellaneous Test Crossmatch 10/31/16 10/31/16 10/31/16 05:43 07:15 07:15 WBC 12.1 H RBC 2.63 L Hgb 7.7 L Hct 23.3 L MCV MCH MCHC RDW 16.7 H Plt Count Lymph % (Auto) 11.7 L [place] % (Auto) 7.7 H Lymph # [place] # 0.9 H Baso # Seg Neutrophils % 78.0 H Seg Neuts % (Manual) Lymphocytes % (Manual) Monocytes % (Manual) Eosinophils % (Manual) Basophils % (Manual) Nucleated RBC % Seg Neutrophils # 9.4 H Seg Neutrophils # Man Lymphocytes # (Manual) Monocytes # (Manual) Eosinophils # (Manual) PT INR Fibrinogen dRVVT Confirm Interp Factor V Activity POC ABG pH POC ABG pCO2 POC ABG pO2 ABG pO2 ABG HCO3 ABG Hemoglobin Oxyhemoglobin Sodium Potassium Chloride 96.4 L Carbon Dioxide 21 L BUN 99 H Creatinine 2.6 H Glucose 144 H POC Glucose 125 H Lactic Acid Calcium Phosphorus 4.80 H Magnesium Direct Bilirubin AST ALT Alkaline Phosphatase Lactate Dehydrogenase Troponin T C-Reactive Protein Total Protein Albumin Prealbumin Triglycerides Cholesterol LDL Cholesterol Direct HDL Cholesterol Urine pH Urine WBC (Auto) Urine Creatinine Urine Total Protein Fluid Total Protein Vancomycin Trough Rheumatoid Factor Complement C4 Miscellaneous Test Crossmatch 10/31/16 10/31/16 11/01/16 11:46 18:34 00:20 WBC RBC Hgb Hct MCV MCH MCHC RDW Plt Count Lymph % (Auto) [place] % (Auto) Lymph # [place] # Baso # Seg Neutrophils % Seg Neuts % (Manual) Lymphocytes % (Manual) Monocytes % (Manual) Eosinophils % (Manual) Basophils % (Manual) Nucleated RBC % Seg Neutrophils # Seg Neutrophils # Man Lymphocytes # (Manual) Monocytes # (Manual) Eosinophils # (Manual) PT INR Fibrinogen dRVVT Confirm Interp Factor V Activity POC ABG pH POC ABG pCO2 POC ABG pO2 ABG pO2 ABG HCO3 ABG Hemoglobin Oxyhemoglobin Sodium Potassium Chloride Carbon Dioxide BUN Creatinine Glucose POC Glucose 159 H 140 H 132 H Lactic Acid Calcium Phosphorus Magnesium Direct Bilirubin AST ALT Alkaline Phosphatase Lactate Dehydrogenase Troponin T C-Reactive Protein Total Protein Albumin Prealbumin Triglycerides Cholesterol LDL Cholesterol Direct HDL Cholesterol Urine pH Urine WBC (Auto) Urine Creatinine Urine Total Protein Fluid Total Protein Vancomycin Trough Rheumatoid Factor Complement C4 Miscellaneous Test Crossmatch 11/01/16 11/01/16 11/01/16 04:55 04:55 06:11 WBC 11.2 H RBC 2.68 L Hgb 7.5 L Hct 23.7 L MCV MCH MCHC RDW 16.1 H Plt Count Lymph % (Auto) [place] % (Auto) 9.8 H Lymph # [place] # 1.1 H Baso # Seg Neutrophils % 70.8 H Seg Neuts % (Manual) Lymphocytes % (Manual) Monocytes % (Manual) Eosinophils % (Manual) Basophils % (Manual) Nucleated RBC % Seg Neutrophils # 7.9 H Seg Neutrophils # Man Lymphocytes # (Manual) Monocytes # (Manual) Eosinophils # (Manual) PT INR Fibrinogen dRVVT Confirm Interp Factor V Activity POC ABG pH POC ABG pCO2 POC ABG pO2 ABG pO2 ABG HCO3 ABG Hemoglobin Oxyhemoglobin Sodium Potassium 3.3 L D Chloride Carbon Dioxide BUN 61 H Creatinine 1.9 H Glucose 114 H POC Glucose 115 H Lactic Acid Calcium Phosphorus 1.80 L D Magnesium Direct Bilirubin AST ALT Alkaline Phosphatase Lactate Dehydrogenase Troponin T C-Reactive Protein Total Protein Albumin Prealbumin Triglycerides Cholesterol LDL Cholesterol Direct HDL Cholesterol Urine pH Urine WBC (Auto) Urine Creatinine Urine Total Protein Fluid Total Protein Vancomycin Trough Rheumatoid Factor Complement C4 Miscellaneous Test Crossmatch 11/01/16 11/01/16 11/01/16 12:29 18:23 23:58 WBC RBC Hgb Hct MCV MCH MCHC RDW Plt Count Lymph % (Auto) [place] % (Auto) Lymph # [place] # Baso # Seg Neutrophils % Seg Neuts % (Manual) Lymphocytes % (Manual) Monocytes % (Manual) Eosinophils % (Manual) Basophils % (Manual) Nucleated RBC % Seg Neutrophils # Seg Neutrophils # Man Lymphocytes # (Manual) Monocytes # (Manual) Eosinophils # (Manual) PT INR Fibrinogen dRVVT Confirm Interp Factor V Activity POC ABG pH POC ABG pCO2 POC ABG pO2 ABG pO2 ABG HCO3 ABG Hemoglobin Oxyhemoglobin Sodium Potassium Chloride Carbon Dioxide BUN Creatinine Glucose POC Glucose 142 H 143 H 128 H Lactic Acid Calcium Phosphorus Magnesium Direct Bilirubin AST ALT Alkaline Phosphatase Lactate Dehydrogenase Troponin T C-Reactive Protein Total Protein Albumin Prealbumin Triglycerides Cholesterol LDL Cholesterol Direct HDL Cholesterol Urine pH Urine WBC (Auto) Urine Creatinine Urine Total Protein Fluid Total Protein Vancomycin Trough Rheumatoid Factor Complement C4 Miscellaneous Test Crossmatch 11/02/16 11/02/16 11/02/16 04:16 05:29 11:58 WBC RBC Hgb Hct MCV MCH MCHC RDW Plt Count Lymph % (Auto) [place] % (Auto) Lymph # [place] # Baso # Seg Neutrophils % Seg Neuts % (Manual) Lymphocytes % (Manual) Monocytes % (Manual) Eosinophils % (Manual) Basophils % (Manual) Nucleated RBC % Seg Neutrophils # Seg Neutrophils # Man Lymphocytes # (Manual) Monocytes # (Manual) Eosinophils # (Manual) PT INR Fibrinogen dRVVT Confirm Interp Factor V Activity POC ABG pH POC ABG pCO2 POC ABG pO2 ABG pO2 ABG HCO3 ABG Hemoglobin Oxyhemoglobin Sodium Potassium 3.1 L Chloride Carbon Dioxide BUN 73 H Creatinine 2.3 H Glucose 112 H POC Glucose 135 H 149 H Lactic Acid Calcium Phosphorus Magnesium Direct Bilirubin AST ALT Alkaline Phosphatase Lactate Dehydrogenase Troponin T C-Reactive Protein Total Protein Albumin Prealbumin Triglycerides Cholesterol LDL Cholesterol Direct HDL Cholesterol Urine pH Urine WBC (Auto) Urine Creatinine Urine Total Protein Fluid Total Protein Vancomycin Trough Rheumatoid Factor Complement C4 Miscellaneous Test Crossmatch 11/02/16 11/02/16 11/03/16 17:42 22:54 06:00 WBC RBC Hgb Hct MCV MCH MCHC RDW Plt Count Lymph % (Auto) [place] % (Auto) Lymph # [place] # Baso # Seg Neutrophils % Seg Neuts % (Manual) Lymphocytes % (Manual) Monocytes % (Manual) Eosinophils % (Manual) Basophils % (Manual) Nucleated RBC % Seg Neutrophils # Seg Neutrophils # Man Lymphocytes # (Manual) Monocytes # (Manual) Eosinophils # (Manual) PT INR Fibrinogen dRVVT Confirm Interp Factor V Activity POC ABG pH POC ABG pCO2 POC ABG pO2 ABG pO2 ABG HCO3 ABG Hemoglobin Oxyhemoglobin Sodium Potassium Chloride 96.7 L Carbon Dioxide BUN 41 H Creatinine 1.5 H Glucose 145 H POC Glucose 182 H 115 H Lactic Acid Calcium Phosphorus 1.60 L D Magnesium 1.50 L Direct Bilirubin AST ALT Alkaline Phosphatase Lactate Dehydrogenase Troponin T C-Reactive Protein Total Protein Albumin Prealbumin Triglycerides Cholesterol LDL Cholesterol Direct HDL Cholesterol Urine pH Urine WBC (Auto) Urine Creatinine Urine Total Protein Fluid Total Protein Vancomycin Trough Rheumatoid Factor Complement C4 Miscellaneous Test Crossmatch 11/03/16 11/03/16 11/03/16 11:53 17:45 23:37 WBC RBC Hgb Hct MCV MCH MCHC RDW Plt Count Lymph % (Auto) [place] % (Auto) Lymph # [place] # Baso # Seg Neutrophils % Seg Neuts % (Manual) Lymphocytes % (Manual) Monocytes % (Manual) Eosinophils % (Manual) Basophils % (Manual) Nucleated RBC % Seg Neutrophils # Seg Neutrophils # Man Lymphocytes # (Manual) Monocytes # (Manual) Eosinophils # (Manual) PT INR Fibrinogen dRVVT Confirm Interp Factor V Activity POC ABG pH POC ABG pCO2 POC ABG pO2 ABG pO2 ABG HCO3 ABG Hemoglobin Oxyhemoglobin Sodium Potassium Chloride Carbon Dioxide BUN Creatinine Glucose POC Glucose 131 H 134 H 113 H Lactic Acid Calcium Phosphorus Magnesium Direct Bilirubin AST ALT Alkaline Phosphatase Lactate Dehydrogenase Troponin T C-Reactive Protein Total Protein Albumin Prealbumin Triglycerides Cholesterol LDL Cholesterol Direct HDL Cholesterol Urine pH Urine WBC (Auto) Urine Creatinine Urine Total Protein Fluid Total Protein Vancomycin Trough Rheumatoid Factor Complement C4 Miscellaneous Test Crossmatch 11/04/16 11/04/16 11/04/16 05:41 06:00 12:10 WBC RBC Hgb Hct MCV MCH MCHC RDW Plt Count Lymph % (Auto) [place] % (Auto) Lymph # [place] # Baso # Seg Neutrophils % Seg Neuts % (Manual) Lymphocytes % (Manual) Monocytes % (Manual) Eosinophils % (Manual) Basophils % (Manual) Nucleated RBC % Seg Neutrophils # Seg Neutrophils # Man Lymphocytes # (Manual) Monocytes # (Manual) Eosinophils # (Manual) PT INR Fibrinogen dRVVT Confirm Interp Factor V Activity POC ABG pH POC ABG pCO2 POC ABG pO2 ABG pO2 ABG HCO3 ABG Hemoglobin Oxyhemoglobin Sodium Potassium Chloride 96.7 L Carbon Dioxide BUN 52 H Creatinine 1.9 H Glucose 126 H POC Glucose 137 H 191 H Lactic Acid Calcium Phosphorus Magnesium Direct Bilirubin AST ALT Alkaline Phosphatase Lactate Dehydrogenase Troponin T C-Reactive Protein Total Protein Albumin Prealbumin Triglycerides Cholesterol LDL Cholesterol Direct HDL Cholesterol Urine pH Urine WBC (Auto) Urine Creatinine Urine Total Protein Fluid Total Protein Vancomycin Trough Rheumatoid Factor Complement C4 Miscellaneous Test Crossmatch 11/04/16 11/05/16 11/05/16 22:57 03:10 05:10 WBC RBC Hgb Hct MCV MCH MCHC RDW Plt Count Lymph % (Auto) [place] % (Auto) Lymph # [place] # Baso # Seg Neutrophils % Seg Neuts % (Manual) Lymphocytes % (Manual) Monocytes % (Manual) Eosinophils % (Manual) Basophils % (Manual) Nucleated RBC % Seg Neutrophils # Seg Neutrophils # Man Lymphocytes # (Manual) Monocytes # (Manual) Eosinophils # (Manual) PT INR Fibrinogen dRVVT Confirm Interp Factor V Activity POC ABG pH POC ABG pCO2 POC ABG pO2 ABG pO2 ABG HCO3 ABG Hemoglobin Oxyhemoglobin Sodium 136 L Potassium Chloride 97.2 L Carbon Dioxide BUN 32 H Creatinine 1.3 H Glucose 123 H POC Glucose 125 H 108 H Lactic Acid Calcium 7.8 L Phosphorus Magnesium Direct Bilirubin AST ALT Alkaline Phosphatase Lactate Dehydrogenase Troponin T C-Reactive Protein Total Protein Albumin Prealbumin Triglycerides Cholesterol LDL Cholesterol Direct HDL Cholesterol Urine pH Urine WBC (Auto) Urine Creatinine Urine Total Protein Fluid Total Protein Vancomycin Trough Rheumatoid Factor Complement C4 Miscellaneous Test Crossmatch 11/05/16 11/05/16 11/05/16 12:23 13:09 13:25 WBC RBC Hgb Hct MCV MCH MCHC RDW Plt Count Lymph % (Auto) [place] % (Auto) Lymph # [place] # Baso # Seg Neutrophils % Seg Neuts % (Manual) Lymphocytes % (Manual) Monocytes % (Manual) Eosinophils % (Manual) Basophils % (Manual) Nucleated RBC % Seg Neutrophils # Seg Neutrophils # Man Lymphocytes # (Manual) Monocytes # (Manual) Eosinophils # (Manual) PT INR Fibrinogen dRVVT Confirm Interp Factor V Activity POC ABG pH POC ABG pCO2 POC ABG pO2 ABG pO2 ABG HCO3 ABG Hemoglobin Oxyhemoglobin Sodium Potassium Chloride Carbon Dioxide BUN Creatinine Glucose POC Glucose 124 H Lactic Acid Calcium Phosphorus Magnesium Direct Bilirubin AST ALT Alkaline Phosphatase Lactate Dehydrogenase Troponin T C-Reactive Protein 11.40 H Total Protein Albumin Prealbumin Triglycerides Cholesterol LDL Cholesterol Direct HDL Cholesterol Urine pH 9.0 H Urine WBC (Auto) Urine Creatinine Urine Total Protein Fluid Total Protein Vancomycin Trough Rheumatoid Factor Complement C4 Miscellaneous Test Crossmatch 09/16/17 09/16/17 09/16/17 13:25 17:54 23:42 WBC RBC Hgb Hct MCV MCH MCHC RDW Plt Count Lymph % (Auto) [place] % (Auto) Lymph # [place] # Baso # Seg Neutrophils % Seg Neuts % (Manual) Lymphocytes % (Manual) Monocytes % (Manual) Eosinophils % (Manual) Basophils % (Manual) Nucleated RBC % Seg Neutrophils # Seg Neutrophils # Man Lymphocytes # (Manual) Monocytes # (Manual) Eosinophils # (Manual) PT INR Fibrinogen dRVVT Confirm Interp Factor V Activity POC ABG pH POC ABG pCO2 POC ABG pO2 ABG pO2 ABG HCO3 ABG Hemoglobin Oxyhemoglobin Sodium Potassium Chloride Carbon Dioxide BUN Creatinine Glucose POC Glucose 114 H 134 H Lactic Acid Calcium Phosphorus Magnesium Direct Bilirubin AST ALT Alkaline Phosphatase Lactate Dehydrogenase Troponin T C-Reactive Protein Total Protein Albumin Prealbumin Triglycerides Cholesterol LDL Cholesterol Direct HDL Cholesterol Urine pH Urine WBC (Auto) Urine Creatinine Urine Total Protein Fluid Total Protein Vancomycin Trough Rheumatoid Factor Complement C4 Miscellaneous Test Flexitest 1 H Crossmatch 11/06/16 11/06/16 11/06/16 04:56 06:25 06:25 WBC RBC 2.50 L Hgb 7.3 L Hct 22.5 L MCV MCH MCHC RDW 16.9 H Plt Count Lymph % (Auto) [place] % (Auto) 10.5 H Lymph # [place] # 1.1 H Baso # Seg Neutrophils % Seg Neuts % (Manual) Lymphocytes % (Manual) Monocytes % (Manual) Eosinophils % (Manual) Basophils % (Manual) Nucleated RBC % Seg Neutrophils # Seg Neutrophils # Man Lymphocytes # (Manual) Monocytes # (Manual) Eosinophils # (Manual) PT INR Fibrinogen dRVVT Confirm Interp Factor V Activity POC ABG pH POC ABG pCO2 POC ABG pO2 ABG pO2 ABG HCO3 ABG Hemoglobin Oxyhemoglobin Sodium Potassium 5.1 H Chloride 95.9 L Carbon Dioxide BUN 52 H Creatinine 1.8 H Glucose 117 H POC Glucose 120 H Lactic Acid Calcium Phosphorus Magnesium Direct Bilirubin AST 103 H ALT 77 H Alkaline Phosphatase 285 H Lactate Dehydrogenase Troponin T C-Reactive Protein Total Protein 6.2 L Albumin 1.8 L Prealbumin 0.180 L Triglycerides Cholesterol LDL Cholesterol Direct HDL Cholesterol Urine pH Urine WBC (Auto) Urine Creatinine Urine Total Protein Fluid Total Protein Vancomycin Trough Rheumatoid Factor Complement C4 Miscellaneous Test Crossmatch 11/06/16 11/06/16 11/06/16 11:56 17:14 23:52 WBC RBC Hgb Hct MCV MCH MCHC RDW Plt Count Lymph % (Auto) [place] % (Auto) Lymph # [place] # Baso # Seg Neutrophils % Seg Neuts % (Manual) Lymphocytes % (Manual) Monocytes % (Manual) Eosinophils % (Manual) Basophils % (Manual) Nucleated RBC % Seg Neutrophils # Seg Neutrophils # Man Lymphocytes # (Manual) Monocytes # (Manual) Eosinophils # (Manual) PT INR Fibrinogen dRVVT Confirm Interp Factor V Activity POC ABG pH POC ABG pCO2 POC ABG pO2 ABG pO2 ABG HCO3 ABG Hemoglobin Oxyhemoglobin Sodium Potassium Chloride Carbon Dioxide BUN Creatinine Glucose POC Glucose 141 H 125 H 130 H Lactic Acid Calcium Phosphorus Magnesium Direct Bilirubin AST ALT Alkaline Phosphatase Lactate Dehydrogenase Troponin T C-Reactive Protein Total Protein Albumin Prealbumin Triglycerides Cholesterol LDL Cholesterol Direct HDL Cholesterol Urine pH Urine WBC (Auto) Urine Creatinine Urine Total Protein Fluid Total Protein Vancomycin Trough Rheumatoid Factor Complement C4 Miscellaneous Test Crossmatch 11/07/16 11/07/16 11/07/16 06:30 06:30 09:37 WBC RBC 2.18 L Hgb 6.3 L Hct 19.7 L* MCV MCH MCHC RDW 16.8 H Plt Count Lymph % (Auto) [place] % (Auto) 10.0 H Lymph # [place] # 1.0 H Baso # Seg Neutrophils % Seg Neuts % (Manual) Lymphocytes % (Manual) Monocytes % (Manual) Eosinophils % (Manual) Basophils % (Manual) Nucleated RBC % Seg Neutrophils # Seg Neutrophils # Man Lymphocytes # (Manual) Monocytes # (Manual) Eosinophils # (Manual) PT INR Fibrinogen dRVVT Confirm Interp Factor V Activity POC ABG pH POC ABG pCO2 POC ABG pO2 ABG pO2 ABG HCO3 ABG Hemoglobin Oxyhemoglobin Sodium 135 L Potassium Chloride 95.6 L Carbon Dioxide BUN 70 H Creatinine 2.0 H Glucose 126 H POC Glucose Lactic Acid Calcium Phosphorus Magnesium Direct Bilirubin AST ALT Alkaline Phosphatase Lactate Dehydrogenase Troponin T C-Reactive Protein Total Protein Albumin Prealbumin Triglycerides Cholesterol LDL Cholesterol Direct HDL Cholesterol Urine pH Urine WBC (Auto) Urine Creatinine Urine Total Protein Fluid Total Protein Vancomycin Trough Rheumatoid Factor Complement C4 Miscellaneous Test Crossmatch See Detail 11/07/16 11/07/16 11/07/16 12:52 18:51 21:26 WBC RBC Hgb Hct MCV MCH MCHC RDW Plt Count Lymph % (Auto) [place] % (Auto) Lymph # [place] # Baso # Seg Neutrophils % Seg Neuts % (Manual) Lymphocytes % (Manual) Monocytes % (Manual) Eosinophils % (Manual) Basophils % (Manual) Nucleated RBC % Seg Neutrophils # Seg Neutrophils # Man Lymphocytes # (Manual) Monocytes # (Manual) Eosinophils # (Manual) PT INR Fibrinogen dRVVT Confirm Interp Factor V Activity POC ABG pH 7.523 H POC ABG pCO2 34.6 L POC ABG pO2 53 L ABG pO2 ABG HCO3 ABG Hemoglobin Oxyhemoglobin Sodium Potassium Chloride Carbon Dioxide BUN Creatinine Glucose POC Glucose 142 H 155 H Lactic Acid Calcium Phosphorus Magnesium Direct Bilirubin AST ALT Alkaline Phosphatase Lactate Dehydrogenase Troponin T C-Reactive Protein Total Protein Albumin Prealbumin Triglycerides Cholesterol LDL Cholesterol Direct HDL Cholesterol Urine pH Urine WBC (Auto) Urine Creatinine Urine Total Protein Fluid Total Protein Vancomycin Trough Rheumatoid Factor Complement C4 Miscellaneous Test Crossmatch 11/07/16 11/08/16 11/08/16 21:34 13:03 23:37 WBC RBC 2.63 L Hgb 7.7 L Hct 22.7 L MCV MCH MCHC RDW 17.0 H Plt Count Lymph % (Auto) [place] % (Auto) Lymph # [place] # Baso # Seg Neutrophils % Seg Neuts % (Manual) Lymphocytes % (Manual) Monocytes % (Manual) Eosinophils % (Manual) Basophils % (Manual) Nucleated RBC % Seg Neutrophils # Seg Neutrophils # Man Lymphocytes # (Manual) Monocytes # (Manual) Eosinophils # (Manual) PT INR Fibrinogen dRVVT Confirm Interp Factor V Activity POC ABG pH 7.478 H POC ABG pCO2 34.0 L POC ABG pO2 50 L ABG pO2 ABG HCO3 ABG Hemoglobin Oxyhemoglobin Sodium Potassium Chloride Carbon Dioxide BUN Creatinine Glucose POC Glucose 113 H Lactic Acid Calcium Phosphorus Magnesium Direct Bilirubin AST ALT Alkaline Phosphatase Lactate Dehydrogenase Troponin T C-Reactive Protein Total Protein Albumin Prealbumin Triglycerides Cholesterol LDL Cholesterol Direct HDL Cholesterol Urine pH Urine WBC (Auto) Urine Creatinine Urine Total Protein Fluid Total Protein Vancomycin Trough Rheumatoid Factor Complement C4 Miscellaneous Test Crossmatch 11/09/16 11/09/16 11/09/16 04:35 10:15 18:21 WBC RBC 2.68 L Hgb 7.8 L Hct 23.3 L MCV MCH MCHC RDW 17.0 H Plt Count Lymph % (Auto) [place] % (Auto) 12.1 H Lymph # [place] # 1.1 H Baso # Seg Neutrophils % Seg Neuts % (Manual) Lymphocytes % (Manual) Monocytes % (Manual) Eosinophils % (Manual) Basophils % (Manual) Nucleated RBC % Seg Neutrophils # Seg Neutrophils # Man Lymphocytes # (Manual) Monocytes # (Manual) Eosinophils # (Manual) PT INR Fibrinogen dRVVT Confirm Interp Factor V Activity POC ABG pH POC ABG pCO2 POC ABG pO2 ABG pO2 ABG HCO3 ABG Hemoglobin Oxyhemoglobin Sodium Potassium Chloride Carbon Dioxide BUN 51 H Creatinine 1.8 H Glucose POC Glucose 60 L Lactic Acid Calcium 8.3 L Phosphorus Magnesium Direct Bilirubin AST ALT Alkaline Phosphatase Lactate Dehydrogenase Troponin T C-Reactive Protein Total Protein Albumin Prealbumin Triglycerides Cholesterol LDL Cholesterol Direct HDL Cholesterol Urine pH Urine WBC (Auto) Urine Creatinine Urine Total Protein Fluid Total Protein Vancomycin Trough Rheumatoid Factor Complement C4 Miscellaneous Test Crossmatch 11/09/16 11/10/16 11/10/16 18:55 07:00 11:51 WBC RBC Hgb Hct MCV MCH MCHC RDW Plt Count Lymph % (Auto) [place] % (Auto) Lymph # [place] # Baso # Seg Neutrophils % Seg Neuts % (Manual) Lymphocytes % (Manual) Monocytes % (Manual) Eosinophils % (Manual) Basophils % (Manual) Nucleated RBC % Seg Neutrophils # Seg Neutrophils # Man Lymphocytes # (Manual) Monocytes # (Manual) Eosinophils # (Manual) PT INR Fibrinogen dRVVT Confirm Interp Factor V Activity POC ABG pH POC ABG pCO2 POC ABG pO2 ABG pO2 ABG HCO3 ABG Hemoglobin Oxyhemoglobin Sodium Potassium 3.0 L D Chloride 97.4 L Carbon Dioxide BUN 28 H Creatinine 1.3 H Glucose POC Glucose 68 L 120 H Lactic Acid Calcium 7.8 L Phosphorus Magnesium Direct Bilirubin AST ALT Alkaline Phosphatase Lactate Dehydrogenase Troponin T C-Reactive Protein Total Protein Albumin Prealbumin Triglycerides Cholesterol LDL Cholesterol Direct HDL Cholesterol Urine pH Urine WBC (Auto) Urine Creatinine Urine Total Protein Fluid Total Protein Vancomycin Trough Rheumatoid Factor Complement C4 Miscellaneous Test Crossmatch 11/10/16 11/11/16 11/11/16 14:20 06:59 06:59 WBC RBC 2.81 L Hgb 8.1 L Hct 24.4 L MCV MCH MCHC RDW 16.4 H Plt Count Lymph % (Auto) [place] % (Auto) 10.8 H Lymph # [place] # 1.0 H Baso # Seg Neutrophils % Seg Neuts % (Manual) Lymphocytes % (Manual) Monocytes % (Manual) Eosinophils % (Manual) Basophils % (Manual) Nucleated RBC % Seg Neutrophils # Seg Neutrophils # Man Lymphocytes # (Manual) Monocytes # (Manual) Eosinophils # (Manual) PT INR Fibrinogen dRVVT Confirm Interp Factor V Activity POC ABG pH POC ABG pCO2 POC ABG pO2 ABG pO2 ABG HCO3 ABG Hemoglobin Oxyhemoglobin Sodium Potassium Chloride Carbon Dioxide BUN Creatinine Glucose POC Glucose Lactic Acid Calcium Phosphorus Magnesium Direct Bilirubin AST ALT Alkaline Phosphatase Lactate Dehydrogenase 196 H Troponin T C-Reactive Protein Total Protein 6.1 L Albumin Prealbumin Triglycerides Cholesterol LDL Cholesterol Direct HDL Cholesterol Urine pH Urine WBC (Auto) Urine Creatinine Urine Total Protein Fluid Total Protein < 3.0 L Vancomycin Trough Rheumatoid Factor Complement C4 Miscellaneous Test Crossmatch 11/11/16 11/11/16 11/12/16 06:59 09:50 04:00 WBC RBC Hgb Hct MCV MCH MCHC RDW Plt Count Lymph % (Auto) [place] % (Auto) Lymph # [place] # Baso # Seg Neutrophils % Seg Neuts % (Manual) Lymphocytes % (Manual) Monocytes % (Manual) Eosinophils % (Manual) Basophils % (Manual) Nucleated RBC % Seg Neutrophils # Seg Neutrophils # Man Lymphocytes # (Manual) Monocytes # (Manual) Eosinophils # (Manual) PT INR 1.18 H Fibrinogen dRVVT Confirm Interp Factor V Activity POC ABG pH POC ABG pCO2 POC ABG pO2 ABG pO2 ABG HCO3 ABG Hemoglobin Oxyhemoglobin Sodium 136 L 133 L Potassium Chloride 96.1 L 94.8 L Carbon Dioxide 21 L BUN 37 H 42 H Creatinine 1.8 H 2.0 H Glucose POC Glucose Lactic Acid Calcium Phosphorus Magnesium Direct Bilirubin AST ALT Alkaline Phosphatase Lactate Dehydrogenase Troponin T C-Reactive Protein Total Protein Albumin Prealbumin Triglycerides Cholesterol LDL Cholesterol Direct HDL Cholesterol Urine pH Urine WBC (Auto) Urine Creatinine Urine Total Protein Fluid Total Protein Vancomycin Trough Rheumatoid Factor Complement C4 Miscellaneous Test Crossmatch 11/12/16 11/12/16 11/13/16 04:00 23:55 05:53 WBC RBC Hgb 8.9 L Hct 27.2 L MCV MCH MCHC RDW Plt Count Lymph % (Auto) [place] % (Auto) Lymph # [place] # Baso # Seg Neutrophils % Seg Neuts % (Manual) Lymphocytes % (Manual) Monocytes % (Manual) Eosinophils % (Manual) Basophils % (Manual) Nucleated RBC % Seg Neutrophils # Seg Neutrophils # Man Lymphocytes # (Manual) Monocytes # (Manual) Eosinophils # (Manual) PT INR Fibrinogen dRVVT Confirm Interp Factor V Activity POC ABG pH POC ABG pCO2 POC ABG pO2 ABG pO2 ABG HCO3 ABG Hemoglobin Oxyhemoglobin Sodium Potassium Chloride Carbon Dioxide BUN Creatinine Glucose POC Glucose 132 H 120 H Lactic Acid Calcium Phosphorus Magnesium Direct Bilirubin AST ALT Alkaline Phosphatase Lactate Dehydrogenase Troponin T C-Reactive Protein Total Protein Albumin Prealbumin Triglycerides Cholesterol LDL Cholesterol Direct HDL Cholesterol Urine pH Urine WBC (Auto) Urine Creatinine Urine Total Protein Fluid Total Protein Vancomycin Trough Rheumatoid Factor Complement C4 Miscellaneous Test Crossmatch 11/13/16 11/13/16 11/13/16 11:43 17:09 23:41 WBC RBC Hgb Hct MCV MCH MCHC RDW Plt Count Lymph % (Auto) [place] % (Auto) Lymph # [place] # Baso # Seg Neutrophils % Seg Neuts % (Manual) Lymphocytes % (Manual) Monocytes % (Manual) Eosinophils % (Manual) Basophils % (Manual) Nucleated RBC % Seg Neutrophils # Seg Neutrophils # Man Lymphocytes # (Manual) Monocytes # (Manual) Eosinophils # (Manual) PT INR Fibrinogen dRVVT Confirm Interp Factor V Activity POC ABG pH POC ABG pCO2 POC ABG pO2 ABG pO2 ABG HCO3 ABG Hemoglobin Oxyhemoglobin Sodium Potassium Chloride Carbon Dioxide BUN Creatinine Glucose POC Glucose 114 H 113 H 108 H Lactic Acid Calcium Phosphorus Magnesium Direct Bilirubin AST ALT Alkaline Phosphatase Lactate Dehydrogenase Troponin T C-Reactive Protein Total Protein Albumin Prealbumin Triglycerides Cholesterol LDL Cholesterol Direct HDL Cholesterol Urine pH Urine WBC (Auto) Urine Creatinine Urine Total Protein Fluid Total Protein Vancomycin Trough Rheumatoid Factor Complement C4 Miscellaneous Test Crossmatch 11/13/16 11/15/16 11/15/16 Unknown 00:37 03:30 WBC 11.2 H RBC 2.72 L Hgb 7.6 L Hct 23.4 L MCV MCH MCHC RDW 16.5 H Plt Count Lymph % (Auto) [place] % (Auto) Lymph # [place] # Baso # Seg Neutrophils % Seg Neuts % (Manual) Lymphocytes % (Manual) Monocytes % (Manual) Eosinophils % (Manual) Basophils % (Manual) Nucleated RBC % Seg Neutrophils # Seg Neutrophils # Man Lymphocytes # (Manual) Monocytes # (Manual) Eosinophils # (Manual) PT INR Fibrinogen dRVVT Confirm Interp Factor V Activity POC ABG pH POC ABG pCO2 POC ABG pO2 ABG pO2 ABG HCO3 ABG Hemoglobin Oxyhemoglobin Sodium 135 L Potassium Chloride 95.2 L Carbon Dioxide BUN 52 H Creatinine 2.2 H Glucose POC Glucose 108 H Lactic Acid Calcium Phosphorus Magnesium Direct Bilirubin AST ALT Alkaline Phosphatase Lactate Dehydrogenase Troponin T C-Reactive Protein Total Protein Albumin Prealbumin Triglycerides Cholesterol LDL Cholesterol Direct HDL Cholesterol Urine pH Urine WBC (Auto) Urine Creatinine Urine Total Protein Fluid Total Protein Vancomycin Trough Rheumatoid Factor Complement C4 Miscellaneous Test Crossmatch 11/15/16 11/15/16 11/15/16 03:30 05:04 11:50 WBC RBC Hgb Hct MCV MCH MCHC RDW Plt Count Lymph % (Auto) [place] % (Auto) Lymph # [place] # Baso # Seg Neutrophils % Seg Neuts % (Manual) Lymphocytes % (Manual) Monocytes % (Manual) Eosinophils % (Manual) Basophils % (Manual) Nucleated RBC % Seg Neutrophils # Seg Neutrophils # Man Lymphocytes # (Manual) Monocytes # (Manual) Eosinophils # (Manual) PT INR Fibrinogen dRVVT Confirm Interp Factor V Activity POC ABG pH POC ABG pCO2 POC ABG pO2 ABG pO2 ABG HCO3 ABG Hemoglobin Oxyhemoglobin Sodium Potassium 3.4 L Chloride Carbon Dioxide BUN 25 H Creatinine 1.5 H Glucose 103 H POC Glucose 121 H 144 H Lactic Acid Calcium Phosphorus Magnesium Direct Bilirubin AST ALT Alkaline Phosphatase Lactate Dehydrogenase Troponin T C-Reactive Protein Total Protein Albumin Prealbumin Triglycerides Cholesterol LDL Cholesterol Direct HDL Cholesterol Urine pH Urine WBC (Auto) Urine Creatinine Urine Total Protein Fluid Total Protein Vancomycin Trough Rheumatoid Factor Complement C4 Miscellaneous Test Crossmatch 11/15/16 11/15/16 11/16/16 21:28 23:20 11:44 WBC RBC Hgb Hct MCV MCH MCHC RDW Plt Count Lymph % (Auto) [place] % (Auto) Lymph # [place] # Baso # Seg Neutrophils % Seg Neuts % (Manual) Lymphocytes % (Manual) Monocytes % (Manual) Eosinophils % (Manual) Basophils % (Manual) Nucleated RBC % Seg Neutrophils # Seg Neutrophils # Man Lymphocytes # (Manual) Monocytes # (Manual) Eosinophils # (Manual) PT INR Fibrinogen dRVVT Confirm Interp Factor V Activity POC ABG pH 7.462 H POC ABG pCO2 POC ABG pO2 71 L ABG pO2 ABG HCO3 ABG Hemoglobin Oxyhemoglobin Sodium Potassium Chloride Carbon Dioxide BUN Creatinine Glucose POC Glucose 116 H 133 H Lactic Acid Calcium Phosphorus Magnesium Direct Bilirubin AST ALT Alkaline Phosphatase Lactate Dehydrogenase Troponin T C-Reactive Protein Total Protein Albumin Prealbumin Triglycerides Cholesterol LDL Cholesterol Direct HDL Cholesterol Urine pH Urine WBC (Auto) Urine Creatinine Urine Total Protein Fluid Total Protein Vancomycin Trough Rheumatoid Factor Complement C4 Miscellaneous Test Crossmatch 11/16/16 11/16/16 11/16/16 12:20 17:05 23:35 WBC 11.7 H RBC 2.73 L Hgb 7.6 L Hct 23.7 L MCV MCH MCHC RDW 16.6 H Plt Count Lymph % (Auto) [place] % (Auto) Lymph # [place] # Baso # Seg Neutrophils % Seg Neuts % (Manual) Lymphocytes % (Manual) Monocytes % (Manual) Eosinophils % (Manual) Basophils % (Manual) Nucleated RBC % Seg Neutrophils # Seg Neutrophils # Man Lymphocytes # (Manual) Monocytes # (Manual) Eosinophils # (Manual) PT INR Fibrinogen dRVVT Confirm Interp Factor V Activity POC ABG pH POC ABG pCO2 POC ABG pO2 ABG pO2 ABG HCO3 ABG Hemoglobin Oxyhemoglobin Sodium Potassium Chloride Carbon Dioxide BUN Creatinine Glucose POC Glucose 154 H 125 H Lactic Acid Calcium Phosphorus Magnesium Direct Bilirubin AST ALT Alkaline Phosphatase Lactate Dehydrogenase Troponin T C-Reactive Protein Total Protein Albumin Prealbumin Triglycerides Cholesterol LDL Cholesterol Direct HDL Cholesterol Urine pH Urine WBC (Auto) Urine Creatinine Urine Total Protein Fluid Total Protein Vancomycin Trough Rheumatoid Factor Complement C4 Miscellaneous Test Crossmatch 11/17/16 11/17/16 11/17/16 03:20 03:20 03:20 WBC RBC 2.55 L Hgb 7.3 L Hct 21.9 L MCV MCH MCHC RDW 16.6 H Plt Count Lymph % (Auto) [place] % (Auto) 11.5 H Lymph # [place] # 1.1 H Baso # Seg Neutrophils % Seg Neuts % (Manual) Lymphocytes % (Manual) Monocytes % (Manual) Eosinophils % (Manual) Basophils % (Manual) Nucleated RBC % Seg Neutrophils # Seg Neutrophils # Man Lymphocytes # (Manual) Monocytes # (Manual) Eosinophils # (Manual) PT 16.8 H INR 1.37 H Fibrinogen dRVVT Confirm Interp Factor V Activity POC ABG pH POC ABG pCO2 POC ABG pO2 ABG pO2 ABG HCO3 ABG Hemoglobin Oxyhemoglobin Sodium Potassium 3.5 L Chloride Carbon Dioxide BUN 21 H Creatinine Glucose POC Glucose Lactic Acid Calcium 7.9 L Phosphorus Magnesium Direct Bilirubin AST ALT Alkaline Phosphatase Lactate Dehydrogenase Troponin T C-Reactive Protein Total Protein Albumin Prealbumin Triglycerides Cholesterol LDL Cholesterol Direct HDL Cholesterol Urine pH Urine WBC (Auto) Urine Creatinine Urine Total Protein Fluid Total Protein Vancomycin Trough Rheumatoid Factor Complement C4 Miscellaneous Test Crossmatch 11/17/16 11/17/16 11/17/16 06:34 11:21 21:22 WBC RBC Hgb Hct MCV MCH MCHC RDW Plt Count Lymph % (Auto) [place] % (Auto) Lymph # [place] # Baso # Seg Neutrophils % Seg Neuts % (Manual) Lymphocytes % (Manual) Monocytes % (Manual) Eosinophils % (Manual) Basophils % (Manual) Nucleated RBC % Seg Neutrophils # Seg Neutrophils # Man Lymphocytes # (Manual) Monocytes # (Manual) Eosinophils # (Manual) PT INR Fibrinogen dRVVT Confirm Interp Factor V Activity POC ABG pH 7.467 H POC ABG pCO2 POC ABG pO2 73 L ABG pO2 ABG HCO3 ABG Hemoglobin Oxyhemoglobin Sodium Potassium Chloride Carbon Dioxide BUN Creatinine Glucose POC Glucose 121 H 119 H Lactic Acid Calcium Phosphorus Magnesium Direct Bilirubin AST ALT Alkaline Phosphatase Lactate Dehydrogenase Troponin T C-Reactive Protein Total Protein Albumin Prealbumin Triglycerides Cholesterol LDL Cholesterol Direct HDL Cholesterol Urine pH Urine WBC (Auto) Urine Creatinine Urine Total Protein Fluid Total Protein Vancomycin Trough Rheumatoid Factor Complement C4 Miscellaneous Test Crossmatch 11/18/16 11/18/16 11/19/16 12:16 17:19 00:00 WBC RBC Hgb Hct MCV MCH MCHC RDW Plt Count Lymph % (Auto) [place] % (Auto) Lymph # [place] # Baso # Seg Neutrophils % Seg Neuts % (Manual) Lymphocytes % (Manual) Monocytes % (Manual) Eosinophils % (Manual) Basophils % (Manual) Nucleated RBC % Seg Neutrophils # Seg Neutrophils # Man Lymphocytes # (Manual) Monocytes # (Manual) Eosinophils # (Manual) PT INR Fibrinogen dRVVT Confirm Interp Factor V Activity POC ABG pH POC ABG pCO2 POC ABG pO2 ABG pO2 ABG HCO3 ABG Hemoglobin Oxyhemoglobin Sodium Potassium Chloride Carbon Dioxide BUN Creatinine Glucose POC Glucose 124 H 162 H 139 H Lactic Acid Calcium Phosphorus Magnesium Direct Bilirubin AST ALT Alkaline Phosphatase Lactate Dehydrogenase Troponin T C-Reactive Protein Total Protein Albumin Prealbumin Triglycerides Cholesterol LDL Cholesterol Direct HDL Cholesterol Urine pH Urine WBC (Auto) Urine Creatinine Urine Total Protein Fluid Total Protein Vancomycin Trough Rheumatoid Factor Complement C4 Miscellaneous Test Crossmatch 11/19/16 11/19/1617 05:00 12:43 00:40 WBC RBC Hgb Hct MCV MCH MCHC RDW Plt Count Lymph % (Auto) [place] % (Auto) Lymph # [place] # Baso # Seg Neutrophils % Seg Neuts % (Manual) Lymphocytes % (Manual) Monocytes % (Manual) Eosinophils % (Manual) Basophils % (Manual) Nucleated RBC % Seg Neutrophils # Seg Neutrophils # Man Lymphocytes # (Manual) Monocytes # (Manual) Eosinophils # (Manual) PT INR Fibrinogen dRVVT Confirm Interp Factor V Activity POC ABG pH POC ABG pCO2 POC ABG pO2 ABG pO2 ABG HCO3 ABG Hemoglobin Oxyhemoglobin Sodium Potassium Chloride Carbon Dioxide BUN Creatinine Glucose POC Glucose 110 H 125 H 136 H Lactic Acid Calcium Phosphorus Magnesium Direct Bilirubin AST ALT Alkaline Phosphatase Lactate Dehydrogenase Troponin T C-Reactive Protein Total Protein Albumin Prealbumin Triglycerides Cholesterol LDL Cholesterol Direct HDL Cholesterol Urine pH Urine WBC (Auto) Urine Creatinine Urine Total Protein Fluid Total Protein Vancomycin Trough Rheumatoid Factor Complement C4 Miscellaneous Test Crossmatch 11/20/16 11/20/16 11/20/16 05:00 05:00 05:51 WBC 13.1 H RBC 2.74 L Hgb 7.7 L Hct 23.6 L MCV MCH MCHC RDW 16.9 H Plt Count Lymph % (Auto) [place] % (Auto) 10.8 H Lymph # [place] # 1.4 H Baso # Seg Neutrophils % Seg Neuts % (Manual) Lymphocytes % (Manual) Monocytes % (Manual) Eosinophils % (Manual) Basophils % (Manual) Nucleated RBC % Seg Neutrophils # 7.9 H Seg Neutrophils # Man Lymphocytes # (Manual) Monocytes # (Manual) Eosinophils # (Manual) PT INR Fibrinogen dRVVT Confirm Interp Factor V Activity POC ABG pH POC ABG pCO2 POC ABG pO2 ABG pO2 ABG HCO3 ABG Hemoglobin Oxyhemoglobin Sodium Potassium Chloride Carbon Dioxide BUN 31 H Creatinine 1.8 H Glucose 129 H POC Glucose 133 H Lactic Acid Calcium Phosphorus Magnesium Direct Bilirubin AST ALT Alkaline Phosphatase Lactate Dehydrogenase Troponin T C-Reactive Protein Total Protein Albumin Prealbumin Triglycerides Cholesterol LDL Cholesterol Direct HDL Cholesterol Urine pH Urine WBC (Auto) Urine Creatinine Urine Total Protein Fluid Total Protein Vancomycin Trough Rheumatoid Factor Complement C4 Miscellaneous Test Crossmatch 11/20/16 11/20/16 11/21/16 12:40 18:10 01:20 WBC RBC Hgb Hct MCV MCH MCHC RDW Plt Count Lymph % (Auto) [place] % (Auto) Lymph # [place] # Baso # Seg Neutrophils % Seg Neuts % (Manual) Lymphocytes % (Manual) Monocytes % (Manual) Eosinophils % (Manual) Basophils % (Manual) Nucleated RBC % Seg Neutrophils # Seg Neutrophils # Man Lymphocytes # (Manual) Monocytes # (Manual) Eosinophils # (Manual) PT INR Fibrinogen dRVVT Confirm Interp Factor V Activity POC ABG pH POC ABG pCO2 POC ABG pO2 ABG pO2 ABG HCO3 ABG Hemoglobin Oxyhemoglobin Sodium Potassium Chloride Carbon Dioxide BUN Creatinine Glucose POC Glucose 134 H 138 H 136 H Lactic Acid Calcium Phosphorus Magnesium Direct Bilirubin AST ALT Alkaline Phosphatase Lactate Dehydrogenase Troponin T C-Reactive Protein Total Protein Albumin Prealbumin Triglycerides Cholesterol LDL Cholesterol Direct HDL Cholesterol Urine pH Urine WBC (Auto) Urine Creatinine Urine Total Protein Fluid Total Protein Vancomycin Trough Rheumatoid Factor Complement C4 Miscellaneous Test Crossmatch 11/21/16 11/21/16 11/21/16 07:04 07:45 07:45 WBC 22.0 H RBC 2.91 L Hgb 8.2 L Hct 25.4 L MCV MCH MCHC RDW 17.1 H Plt Count Lymph % (Auto) [place] % (Auto) Lymph # [place] # Baso # Seg Neutrophils % Seg Neuts % (Manual) Lymphocytes % (Manual) 8.0 L Monocytes % (Manual) Eosinophils % (Manual) Basophils % (Manual) Nucleated RBC % Seg Neutrophils # Seg Neutrophils # Man 14.7 H Lymphocytes # (Manual) Monocytes # (Manual) 1.1 H Eosinophils # (Manual) PT INR Fibrinogen dRVVT Confirm Interp Factor V Activity POC ABG pH POC ABG pCO2 POC ABG pO2 ABG pO2 ABG HCO3 ABG Hemoglobin Oxyhemoglobin Sodium Potassium Chloride Carbon Dioxide BUN 42 H Creatinine 2.0 H Glucose POC Glucose 108 H Lactic Acid Calcium Phosphorus Magnesium Direct Bilirubin AST ALT Alkaline Phosphatase Lactate Dehydrogenase Troponin T C-Reactive Protein Total Protein Albumin Prealbumin Triglycerides Cholesterol LDL Cholesterol Direct HDL Cholesterol Urine pH Urine WBC (Auto) Urine Creatinine Urine Total Protein Fluid Total Protein Vancomycin Trough Rheumatoid Factor Complement C4 Miscellaneous Test Crossmatch 11/21/16 11/21/16 11/21/16 08:38 10:09 11:20 WBC RBC Hgb Hct MCV MCH MCHC RDW Plt Count Lymph % (Auto) [place] % (Auto) Lymph # [place] # Baso # Seg Neutrophils % Seg Neuts % (Manual) Lymphocytes % (Manual) Monocytes % (Manual) Eosinophils % (Manual) Basophils % (Manual) Nucleated RBC % Seg Neutrophils # Seg Neutrophils # Man Lymphocytes # (Manual) Monocytes # (Manual) Eosinophils # (Manual) PT INR Fibrinogen dRVVT Confirm Interp Factor V Activity POC ABG pH 7.346 L POC ABG pCO2 34.4 L POC ABG pO2 314 H ABG pO2 ABG HCO3 ABG Hemoglobin Oxyhemoglobin Sodium Potassium Chloride Carbon Dioxide BUN Creatinine Glucose POC Glucose 195 H 153 H Lactic Acid Calcium Phosphorus Magnesium Direct Bilirubin AST ALT Alkaline Phosphatase Lactate Dehydrogenase Troponin T C-Reactive Protein Total Protein Albumin Prealbumin Triglycerides Cholesterol LDL Cholesterol Direct HDL Cholesterol Urine pH Urine WBC (Auto) Urine Creatinine Urine Total Protein Fluid Total Protein Vancomycin Trough Rheumatoid Factor Complement C4 Miscellaneous Test Crossmatch 11/21/16 11/22/16 11/22/16 23:37 04:48 05:00 WBC 29.7 H RBC 2.73 L Hgb 7.5 L Hct 24.2 L MCV MCH 27 L MCHC RDW 17.4 H Plt Count Lymph % (Auto) [place] % (Auto) Lymph # [place] # Baso # Seg Neutrophils % Seg Neuts % (Manual) Lymphocytes % (Manual) 7.0 L Monocytes % (Manual) Eosinophils % (Manual) Basophils % (Manual) Nucleated RBC % Seg Neutrophils # Seg Neutrophils # Man 15.4 H Lymphocytes # (Manual) Monocytes # (Manual) Eosinophils # (Manual) PT INR Fibrinogen dRVVT Confirm Interp Factor V Activity POC ABG pH POC ABG pCO2 24.6 L POC ABG pO2 189 H ABG pO2 ABG HCO3 ABG Hemoglobin Oxyhemoglobin Sodium Potassium Chloride Carbon Dioxide BUN Creatinine Glucose POC Glucose 65 L Lactic Acid Calcium Phosphorus Magnesium Direct Bilirubin AST ALT Alkaline Phosphatase Lactate Dehydrogenase Troponin T C-Reactive Protein Total Protein Albumin Prealbumin Triglycerides Cholesterol LDL Cholesterol Direct HDL Cholesterol Urine pH Urine WBC (Auto) Urine Creatinine Urine Total Protein Fluid Total Protein Vancomycin Trough Rheumatoid Factor Complement C4 Miscellaneous Test Crossmatch 11/22/16 11/23/16 11/23/16 05:00 03:44 04:06 WBC RBC 2.52 L Hgb 7.2 L Hct 21.5 L MCV MCH MCHC RDW 17.1 H Plt Count Lymph % (Auto) [place] % (Auto) 12.4 H Lymph # [place] # 1.4 H Baso # Seg Neutrophils % Seg Neuts % (Manual) Lymphocytes % (Manual) Monocytes % (Manual) Eosinophils % (Manual) Basophils % (Manual) Nucleated RBC % Seg Neutrophils # Seg Neutrophils # Man Lymphocytes # (Manual) Monocytes # (Manual) Eosinophils # (Manual) PT INR Fibrinogen dRVVT Confirm Interp Factor V Activity POC ABG pH 7.493 H POC ABG pCO2 29.5 L POC ABG pO2 49 L ABG pO2 ABG HCO3 ABG Hemoglobin Oxyhemoglobin Sodium 134 L Potassium Chloride 95.9 L Carbon Dioxide 14 L D BUN 51 H Creatinine 2.6 H Glucose POC Glucose Lactic Acid Calcium Phosphorus Magnesium Direct Bilirubin AST ALT Alkaline Phosphatase Lactate Dehydrogenase Troponin T C-Reactive Protein Total Protein Albumin Prealbumin Triglycerides Cholesterol LDL Cholesterol Direct HDL Cholesterol Urine pH Urine WBC (Auto) Urine Creatinine Urine Total Protein Fluid Total Protein Vancomycin Trough Rheumatoid Factor Complement C4 Miscellaneous Test Crossmatch 11/23/16 11/23/16 11/24/16 04:06 11:29 06:39 WBC RBC Hgb Hct MCV MCH MCHC RDW Plt Count Lymph % (Auto) [place] % (Auto) Lymph # [place] # Baso # Seg Neutrophils % Seg Neuts % (Manual) Lymphocytes % (Manual) Monocytes % (Manual) Eosinophils % (Manual) Basophils % (Manual) Nucleated RBC % Seg Neutrophils # Seg Neutrophils # Man Lymphocytes # (Manual) Monocytes # (Manual) Eosinophils # (Manual) PT INR Fibrinogen dRVVT Confirm Interp Factor V Activity POC ABG pH POC ABG pCO2 POC ABG pO2 ABG pO2 ABG HCO3 ABG Hemoglobin Oxyhemoglobin Sodium 136 L Potassium Chloride 95.2 L Carbon Dioxide BUN 60 H Creatinine 2.9 H Glucose POC Glucose 69 L 305 H Lactic Acid Calcium Phosphorus Magnesium 1.60 L Direct Bilirubin AST ALT Alkaline Phosphatase Lactate Dehydrogenase Troponin T C-Reactive Protein Total Protein Albumin Prealbumin Triglycerides Cholesterol LDL Cholesterol Direct HDL Cholesterol Urine pH Urine WBC (Auto) Urine Creatinine Urine Total Protein Fluid Total Protein Vancomycin Trough Rheumatoid Factor Complement C4 Miscellaneous Test Crossmatch 11/24/16 11/24/16 11/24/16 06:43 08:08 08:08 WBC 11.2 H RBC 2.47 L Hgb 6.8 L Hct 20.6 L MCV MCH MCHC RDW 17.0 H Plt Count Lymph % (Auto) [place] % (Auto) 10.3 H Lymph # [place] # 1.2 H Baso # Seg Neutrophils % Seg Neuts % (Manual) Lymphocytes % (Manual) Monocytes % (Manual) Eosinophils % (Manual) Basophils % (Manual) Nucleated RBC % Seg Neutrophils # Seg Neutrophils # Man Lymphocytes # (Manual) Monocytes # (Manual) Eosinophils # (Manual) PT INR Fibrinogen dRVVT Confirm Interp Factor V Activity POC ABG pH POC ABG pCO2 POC ABG pO2 ABG pO2 ABG HCO3 ABG Hemoglobin Oxyhemoglobin Sodium 135 L Potassium Chloride 96.3 L Carbon Dioxide BUN 61 H Creatinine 3.1 H Glucose POC Glucose 62 L Lactic Acid Calcium 8.2 L Phosphorus Magnesium Direct Bilirubin AST ALT Alkaline Phosphatase Lactate Dehydrogenase Troponin T C-Reactive Protein Total Protein Albumin Prealbumin Triglycerides Cholesterol LDL Cholesterol Direct HDL Cholesterol Urine pH Urine WBC (Auto) Urine Creatinine Urine Total Protein Fluid Total Protein Vancomycin Trough Rheumatoid Factor Complement C4 Miscellaneous Test Crossmatch 11/24/16 11/24/16 11/24/16 08:34 11:20 12:41 WBC RBC Hgb Hct MCV MCH MCHC RDW Plt Count Lymph % (Auto) [place] % (Auto) Lymph # [place] # Baso # Seg Neutrophils % Seg Neuts % (Manual) Lymphocytes % (Manual) Monocytes % (Manual) Eosinophils % (Manual) Basophils % (Manual) Nucleated RBC % Seg Neutrophils # Seg Neutrophils # Man Lymphocytes # (Manual) Monocytes # (Manual) Eosinophils # (Manual) PT INR Fibrinogen dRVVT Confirm Interp Factor V Activity POC ABG pH POC ABG pCO2 POC ABG pO2 ABG pO2 ABG HCO3 ABG Hemoglobin Oxyhemoglobin Sodium Potassium Chloride Carbon Dioxide BUN Creatinine Glucose POC Glucose 108 H Lactic Acid Calcium Phosphorus Magnesium 1.60 L Direct Bilirubin AST ALT Alkaline Phosphatase Lactate Dehydrogenase Troponin T C-Reactive Protein Total Protein Albumin Prealbumin Triglycerides Cholesterol LDL Cholesterol Direct HDL Cholesterol Urine pH Urine WBC (Auto) Urine Creatinine Urine Total Protein Fluid Total Protein Vancomycin Trough Rheumatoid Factor Complement C4 Miscellaneous Test Crossmatch See Detail 11/25/16 11/25/16 11/25/16 00:03 04:42 04:42 WBC RBC 3.03 L Hgb 8.6 L Hct 25.3 L MCV MCH MCHC RDW 16.2 H Plt Count Lymph % (Auto) [place] % (Auto) 8.1 H Lymph # [place] # Baso # Seg Neutrophils % 71.3 H Seg Neuts % (Manual) Lymphocytes % (Manual) Monocytes % (Manual) Eosinophils % (Manual) Basophils % (Manual) Nucleated RBC % Seg Neutrophils # Seg Neutrophils # Man Lymphocytes # (Manual) Monocytes # (Manual) Eosinophils # (Manual) PT INR Fibrinogen dRVVT Confirm Interp Factor V Activity POC ABG pH POC ABG pCO2 POC ABG pO2 ABG pO2 ABG HCO3 ABG Hemoglobin Oxyhemoglobin Sodium Potassium Chloride Carbon Dioxide BUN 61 H Creatinine 3.0 H Glucose 102 H POC Glucose 113 H Lactic Acid Calcium 8.2 L Phosphorus Magnesium Direct Bilirubin AST ALT Alkaline Phosphatase 142 H Lactate Dehydrogenase Troponin T C-Reactive Protein Total Protein 5.7 L Albumin 1.5 L Prealbumin Triglycerides Cholesterol LDL Cholesterol Direct HDL Cholesterol Urine pH Urine WBC (Auto) Urine Creatinine Urine Total Protein Fluid Total Protein Vancomycin Trough Rheumatoid Factor Complement C4 Miscellaneous Test Crossmatch 11/25/16 11/25/16 11/25/16 05:12 11:31 14:12 WBC RBC Hgb Hct MCV MCH MCHC RDW Plt Count Lymph % (Auto) [place] % (Auto) Lymph # [place] # Baso # Seg Neutrophils % Seg Neuts % (Manual) Lymphocytes % (Manual) Monocytes % (Manual) Eosinophils % (Manual) Basophils % (Manual) Nucleated RBC % Seg Neutrophils # Seg Neutrophils # Man Lymphocytes # (Manual) Monocytes # (Manual) Eosinophils # (Manual) PT INR Fibrinogen dRVVT Confirm Interp Factor V Activity POC ABG pH 7.487 H POC ABG pCO2 POC ABG pO2 153 H ABG pO2 ABG HCO3 ABG Hemoglobin Oxyhemoglobin Sodium Potassium Chloride Carbon Dioxide BUN Creatinine Glucose POC Glucose 131 H 140 H Lactic Acid Calcium Phosphorus Magnesium Direct Bilirubin AST ALT Alkaline Phosphatase Lactate Dehydrogenase Troponin T C-Reactive Protein Total Protein Albumin Prealbumin Triglycerides Cholesterol LDL Cholesterol Direct HDL Cholesterol Urine pH Urine WBC (Auto) Urine Creatinine Urine Total Protein Fluid Total Protein Vancomycin Trough Rheumatoid Factor Complement C4 Miscellaneous Test Crossmatch 11/25/16 11/26/16 11/26/16 17:23 00:09 05:13 WBC RBC 2.94 L Hgb 8.4 L Hct 24.6 L MCV MCH MCHC RDW 16.4 H Plt Count Lymph % (Auto) [place] % (Auto) 12.3 H Lymph # [place] # 1.1 H Baso # Seg Neutrophils % Seg Neuts % (Manual) Lymphocytes % (Manual) Monocytes % (Manual) Eosinophils % (Manual) Basophils % (Manual) Nucleated RBC % Seg Neutrophils # Seg Neutrophils # Man Lymphocytes # (Manual) Monocytes # (Manual) Eosinophils # (Manual) PT INR Fibrinogen dRVVT Confirm Interp Factor V Activity POC ABG pH POC ABG pCO2 POC ABG pO2 ABG pO2 ABG HCO3 ABG Hemoglobin Oxyhemoglobin Sodium Potassium Chloride Carbon Dioxide BUN Creatinine Glucose POC Glucose 146 H 112 H Lactic Acid Calcium Phosphorus Magnesium Direct Bilirubin AST ALT Alkaline Phosphatase Lactate Dehydrogenase Troponin T C-Reactive Protein Total Protein Albumin Prealbumin Triglycerides Cholesterol LDL Cholesterol Direct HDL Cholesterol Urine pH Urine WBC (Auto) Urine Creatinine Urine Total Protein Fluid Total Protein Vancomycin Trough Rheumatoid Factor Complement C4 Miscellaneous Test Crossmatch 11/26/16 11/26/16 11/26/16 05:13 05:28 11:53 WBC RBC Hgb Hct MCV MCH MCHC RDW Plt Count Lymph % (Auto) [place] % (Auto) Lymph # [place] # Baso # Seg Neutrophils % Seg Neuts % (Manual) Lymphocytes % (Manual) Monocytes % (Manual) Eosinophils % (Manual) Basophils % (Manual) Nucleated RBC % Seg Neutrophils # Seg Neutrophils # Man Lymphocytes # (Manual) Monocytes # (Manual) Eosinophils # (Manual) PT INR Fibrinogen dRVVT Confirm Interp Factor V Activity POC ABG pH POC ABG pCO2 POC ABG pO2 ABG pO2 ABG HCO3 ABG Hemoglobin Oxyhemoglobin Sodium Potassium Chloride 97.8 L Carbon Dioxide BUN 37 H Creatinine 2.0 H Glucose 109 H POC Glucose 117 H 111 H Lactic Acid Calcium 7.9 L Phosphorus 1.80 L D Magnesium Direct Bilirubin AST ALT Alkaline Phosphatase Lactate Dehydrogenase Troponin T C-Reactive Protein Total Protein Albumin Prealbumin Triglycerides Cholesterol LDL Cholesterol Direct HDL Cholesterol Urine pH Urine WBC (Auto) Urine Creatinine Urine Total Protein Fluid Total Protein Vancomycin Trough Rheumatoid Factor Complement C4 Miscellaneous Test Crossmatch 11/26/16 11/27/16 11/27/16 17:14 04:50 06:02 WBC RBC Hgb Hct MCV MCH MCHC RDW Plt Count Lymph % (Auto) [place] % (Auto) Lymph # [place] # Baso # Seg Neutrophils % Seg Neuts % (Manual) Lymphocytes % (Manual) Monocytes % (Manual) Eosinophils % (Manual) Basophils % (Manual) Nucleated RBC % Seg Neutrophils # Seg Neutrophils # Man Lymphocytes # (Manual) Monocytes # (Manual) Eosinophils # (Manual) PT INR Fibrinogen dRVVT Confirm Interp Factor V Activity POC ABG pH POC ABG pCO2 POC ABG pO2 ABG pO2 75.2 L ABG HCO3 26.4 H ABG Hemoglobin 7.6 L Oxyhemoglobin 94.8 L Sodium Potassium Chloride Carbon Dioxide BUN 49 H Creatinine 2.3 H Glucose POC Glucose 115 H Lactic Acid Calcium Phosphorus 1.50 L Magnesium Direct Bilirubin AST ALT Alkaline Phosphatase Lactate Dehydrogenase Troponin T C-Reactive Protein Total Protein Albumin Prealbumin Triglycerides Cholesterol LDL Cholesterol Direct HDL Cholesterol Urine pH Urine WBC (Auto) Urine Creatinine Urine Total Protein Fluid Total Protein Vancomycin Trough Rheumatoid Factor Complement C4 Miscellaneous Test Crossmatch 11/27/16 11/27/16 11/27/16 06:02 11:25 17:25 WBC 11.6 H RBC 2.75 L Hgb 7.6 L Hct 23.4 L MCV MCH MCHC RDW 16.5 H Plt Count Lymph % (Auto) [place] % (Auto) Lymph # [place] # Baso # Seg Neutrophils % Seg Neuts % (Manual) Lymphocytes % (Manual) Monocytes % (Manual) Eosinophils % (Manual) Basophils % (Manual) Nucleated RBC % Seg Neutrophils # Seg Neutrophils # Man Lymphocytes # (Manual) Monocytes # (Manual) Eosinophils # (Manual) PT INR Fibrinogen dRVVT Confirm Interp Factor V Activity POC ABG pH POC ABG pCO2 POC ABG pO2 ABG pO2 ABG HCO3 ABG Hemoglobin Oxyhemoglobin Sodium Potassium Chloride Carbon Dioxide BUN Creatinine Glucose POC Glucose 114 H 126 H Lactic Acid Calcium Phosphorus Magnesium Direct Bilirubin AST ALT Alkaline Phosphatase Lactate Dehydrogenase Troponin T C-Reactive Protein Total Protein Albumin Prealbumin Triglycerides Cholesterol LDL Cholesterol Direct HDL Cholesterol Urine pH Urine WBC (Auto) Urine Creatinine Urine Total Protein Fluid Total Protein Vancomycin Trough Rheumatoid Factor Complement C4 Miscellaneous Test Crossmatch 11/28/16 11/28/16 11/28/16 04:45 05:33 05:44 WBC RBC Hgb Hct MCV MCH MCHC RDW Plt Count Lymph % (Auto) [place] % (Auto) Lymph # [place] # Baso # Seg Neutrophils % Seg Neuts % (Manual) Lymphocytes % (Manual) Monocytes % (Manual) Eosinophils % (Manual) Basophils % (Manual) Nucleated RBC % Seg Neutrophils # Seg Neutrophils # Man Lymphocytes # (Manual) Monocytes # (Manual) Eosinophils # (Manual) PT INR Fibrinogen dRVVT Confirm Interp Factor V Activity POC ABG pH POC ABG pCO2 POC ABG pO2 ABG pO2 99.3 H ABG HCO3 ABG Hemoglobin 8.3 L Oxyhemoglobin Sodium Potassium Chloride Carbon Dioxide BUN 63 H Creatinine 2.4 H Glucose 102 H POC Glucose 108 H Lactic Acid Calcium Phosphorus 1.80 L Magnesium Direct Bilirubin AST ALT Alkaline Phosphatase Lactate Dehydrogenase Troponin T C-Reactive Protein Total Protein Albumin Prealbumin Triglycerides Cholesterol LDL Cholesterol Direct HDL Cholesterol Urine pH Urine WBC (Auto) Urine Creatinine Urine Total Protein Fluid Total Protein Vancomycin Trough Rheumatoid Factor Complement C4 Miscellaneous Test Crossmatch 11/28/16 11/28/16 11/28/16 12:31 16:09 23:46 WBC RBC Hgb Hct MCV MCH MCHC RDW Plt Count Lymph % (Auto) [place] % (Auto) Lymph # [place] # Baso # Seg Neutrophils % Seg Neuts % (Manual) Lymphocytes % (Manual) Monocytes % (Manual) Eosinophils % (Manual) Basophils % (Manual) Nucleated RBC % Seg Neutrophils # Seg Neutrophils # Man Lymphocytes # (Manual) Monocytes # (Manual) Eosinophils # (Manual) PT INR Fibrinogen dRVVT Confirm Interp Factor V Activity POC ABG pH POC ABG pCO2 POC ABG pO2 ABG pO2 ABG HCO3 ABG Hemoglobin Oxyhemoglobin Sodium Potassium Chloride Carbon Dioxide BUN Creatinine Glucose POC Glucose 126 H 111 H 119 H Lactic Acid Calcium Phosphorus Magnesium Direct Bilirubin AST ALT Alkaline Phosphatase Lactate Dehydrogenase Troponin T C-Reactive Protein Total Protein Albumin Prealbumin Triglycerides Cholesterol LDL Cholesterol Direct HDL Cholesterol Urine pH Urine WBC (Auto) Urine Creatinine Urine Total Protein Fluid Total Protein Vancomycin Trough Rheumatoid Factor Complement C4 Miscellaneous Test Crossmatch 11/29/16 11/29/16 11/29/16 03:33 04:52 05:10 WBC RBC Hgb Hct MCV MCH MCHC RDW Plt Count Lymph % (Auto) [place] % (Auto) Lymph # [place] # Baso # Seg Neutrophils % Seg Neuts % (Manual) Lymphocytes % (Manual) Monocytes % (Manual) Eosinophils % (Manual) Basophils % (Manual) Nucleated RBC % Seg Neutrophils # Seg Neutrophils # Man Lymphocytes # (Manual) Monocytes # (Manual) Eosinophils # (Manual) PT INR Fibrinogen dRVVT Confirm Interp Factor V Activity POC ABG pH POC ABG pCO2 POC ABG pO2 ABG pO2 ABG HCO3 ABG Hemoglobin 7.0 L Oxyhemoglobin 94.9 L Sodium Potassium Chloride Carbon Dioxide BUN 73 H Creatinine 2.7 H Glucose POC Glucose 108 H Lactic Acid Calcium Phosphorus Magnesium Direct Bilirubin AST ALT Alkaline Phosphatase Lactate Dehydrogenase Troponin T C-Reactive Protein Total Protein Albumin Prealbumin Triglycerides Cholesterol LDL Cholesterol Direct HDL Cholesterol Urine pH Urine WBC (Auto) Urine Creatinine Urine Total Protein Fluid Total Protein Vancomycin Trough Rheumatoid Factor Complement C4 Miscellaneous Test Crossmatch 11/29/16 11/29/16 11/29/16 12:16 18:05 23:46 WBC RBC Hgb Hct MCV MCH MCHC RDW Plt Count Lymph % (Auto) [place] % (Auto) Lymph # [place] # Baso # Seg Neutrophils % Seg Neuts % (Manual) Lymphocytes % (Manual) Monocytes % (Manual) Eosinophils % (Manual) Basophils % (Manual) Nucleated RBC % Seg Neutrophils # Seg Neutrophils # Man Lymphocytes # (Manual) Monocytes # (Manual) Eosinophils # (Manual) PT INR Fibrinogen dRVVT Confirm Interp Factor V Activity POC ABG pH POC ABG pCO2 POC ABG pO2 ABG pO2 ABG HCO3 ABG Hemoglobin Oxyhemoglobin Sodium Potassium Chloride Carbon Dioxide BUN Creatinine Glucose POC Glucose 133 H 146 H 141 H Lactic Acid Calcium Phosphorus Magnesium Direct Bilirubin AST ALT Alkaline Phosphatase Lactate Dehydrogenase Troponin T C-Reactive Protein Total Protein Albumin Prealbumin Triglycerides Cholesterol LDL Cholesterol Direct HDL Cholesterol Urine pH Urine WBC (Auto) Urine Creatinine Urine Total Protein Fluid Total Protein Vancomycin Trough Rheumatoid Factor Complement C4 Miscellaneous Test Crossmatch 11/30/16 11/30/16 11/30/16 04:17 04:17 04:32 WBC 12.0 H RBC 2.80 L Hgb 7.8 L Hct 23.6 L MCV MCH MCHC RDW 16.6 H Plt Count Lymph % (Auto) [place] % (Auto) 11.3 H Lymph # [place] # 1.4 H Baso # Seg Neutrophils % Seg Neuts % (Manual) Lymphocytes % (Manual) Monocytes % (Manual) Eosinophils % (Manual) Basophils % (Manual) Nucleated RBC % Seg Neutrophils # 8.2 H Seg Neutrophils # Man Lymphocytes # (Manual) Monocytes # (Manual) Eosinophils # (Manual) PT INR Fibrinogen dRVVT Confirm Interp Factor V Activity POC ABG pH POC ABG pCO2 POC ABG pO2 ABG pO2 ABG HCO3 ABG Hemoglobin Oxyhemoglobin Sodium 169 H* D Potassium 5.1 H Chloride 121.5 H Carbon Dioxide BUN 34 H Creatinine 1.3 H D Glucose 133 H POC Glucose 131 H Lactic Acid Calcium 10.3 H Phosphorus Magnesium Direct Bilirubin AST ALT Alkaline Phosphatase Lactate Dehydrogenase Troponin T C-Reactive Protein Total Protein Albumin Prealbumin Triglycerides Cholesterol LDL Cholesterol Direct HDL Cholesterol Urine pH Urine WBC (Auto) Urine Creatinine Urine Total Protein Fluid Total Protein Vancomycin Trough Rheumatoid Factor Complement C4 Miscellaneous Test Crossmatch 11/30/16 05:45 WBC RBC Hgb Hct MCV MCH MCHC RDW Plt Count Lymph % (Auto) [place] % (Auto) Lymph # [place] # Baso # Seg Neutrophils % Seg Neuts % (Manual) Lymphocytes % (Manual) Monocytes % (Manual) Eosinophils % (Manual) Basophils % (Manual) Nucleated RBC % Seg Neutrophils # Seg Neutrophils # Man Lymphocytes # (Manual) Monocytes # (Manual) Eosinophils # (Manual) PT INR Fibrinogen dRVVT Confirm Interp Factor V Activity POC ABG pH POC ABG pCO2 POC ABG pO2 ABG pO2 ABG HCO3 ABG Hemoglobin Oxyhemoglobin Sodium Potassium Chloride Carbon Dioxide BUN 45 H Creatinine 1.6 H Glucose 131 H POC Glucose Lactic Acid Calcium Phosphorus Magnesium Direct Bilirubin AST ALT Alkaline Phosphatase Lactate Dehydrogenase Troponin T C-Reactive Protein Total Protein Albumin Prealbumin Triglycerides Cholesterol LDL Cholesterol Direct HDL Cholesterol Urine pH Urine WBC (Auto) Urine Creatinine Urine Total Protein Fluid Total Protein Vancomycin Trough Rheumatoid Factor Complement C4 Miscellaneous Test Crossmatch Chest x-ray: image reviewed Allied health notes reviewed: RT
[2016-11-30] MEDS: MORPHINE IV PRN ×2 (12:31→18:18)
[2016-11-30] MEDS: NORMODYNE IV SCH ×2 (14:05→20:28)
--- NOTE | 2016-11-30 17:26 | Progress Note ---
Assessment and Plan Assessment and plan: Patient is 46-year-old woman with a history of hypertension, diabetes, asthma, hyperlipidemia, chronic kidney disease and anxiety , who was brought in by family because, she couldn't get her words out, her face was also twisted, she was admitted for acute CVA and accelerated hypertension, she had a hx of poor adherence with her medications, and uncontrolled htn. Patient's SBP on admission was noted be greater than 260. TPA was started but this was discontinued after 5 minutes because her blood pressure became uncontrolled. The TPA was not initiated again because the patient was outside the TPA window. Status post cardiac arrest , 11/21/16 - Received CPR and was resuscitated. Fever - resolved - Now on Vancomycin - s/p R thoracentesis on 11/14, 240cc of serous fluid removed, cx of fluid was negative - Stool negative for C. difficile Severe Sepsis with septic shock - Resolving Surgical wound infection/gram-negative sepsis/candidemia/peritonitis - PEG has been removed and pus is drained from the PEG site - Currently on tube feeding -continue wound care to ostomy sites JUANITA, ESRD - on HD per nephrology Acute CVA with infarct - Neurology input appreciated - CT shows continued evolution of left MCA infarct with slight mass effect and edema, and there is no hemorrhage - PRINCE showed hyperdynamic with ef of 75%, neither clot nor septal defect seen - MRA Brain shows near complete occlusion of M2 and M3 of the left MCA - Repeat CT scan done on 09/11, shows stable findings - carotid doppler negative - Echo shows preserved systolic function but does show some left ventricular diastolic dysfunction - continue asa and statin Persistent vegetative state - This patient's needs placement at SNF - She was denied for LTACH Acute hypoxic respiratory failure requiring MV >96hrs - Status post tracheostomy, was on T piece Nosocomial acquired aspiration pneumonia/sepsis/UTI - Recurrent - On vancomycin Asthma/COPD exacerbation - ON trach, mechanical ventilation Acute Toxic Metabolic encephalopathy. - Multitifactorial, mostly secondary to evolution of CVA Bilateral pleural effusion, s/p right thoracentesis 11/14 - fluid analysis cw transudate Paroxysmal atrial fibrillation with rapid ventricular rate and hyper-coaguable state - failed cardioversion - Continue current medications, Not a candidate for anticoagulation secondary to anemia, thrombocytopenia, and massive CVA Diabetes type 2. Continue sliding-scale regular insulin and Accu-Cheks. Hyperlipidemia. Continue statin Nutrition - continue tube feeds Anemia requiring multiple transfusions/acute blood loss - Has received total 14 units of PRBC this admission. Will continue to transfuse to keep Hemoglobin above 7 - Hemoglobin 7.8 Per the Cutting Torch Operator patient's were explained the disease situation yesterday by Dr Lopez and they refused hospice. Have been explained by the hospitalist group and the cable former about the poor prognosis of the patient but the family said she may made it and refused. Will talk to them at the end of the week. Disposition. Very poor prognosis. The high probability of a clinically significant, sudden or life threatening deterioration of the [neurologic, CV] system(s) required my full and direct attention, intervention and personal management. The aggregate critical care time was [34] minutes. This time is in addition to time spent performing reported procedures but includes the following: [x] Data Review and interpretation [x] Patient assessment and monitoring of vital signs [x] Documentation [x] Medication orders and management History Interval history: Patient was seen and evaluated this morning, patient is in persistent vegetative state. 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 Hospitalist Physical - Physical exam Narrative exam: Patient is on mechanical ventilation Vital signs as documented. Head exam is unremarkable. No scleral icterus . Neck is without jugular venous distension, thyromegaly, or carotid bruits. Lungs are clear to auscultation. Cardiac exam reveals regular rate and Rhythm. First and second heart sounds normal. No murmurs, rubs or gallops. Abdominal exam reveals abscess draining from the PEG site, and multiple fistulas around the stomach. Extremities are nonedematous and both femoral and pedal pulses are normal. TIMEKEEPER: comatose - Constitutional Vitals: Temp Pulse Resp BP Pulse Ox 98.4 F 133 H 29 H 180/100 96 11/30/16 16:00 11/30/16 13:20 11/30/16 12:30 11/30/16 13:20 11/30/16 13:20 General appearance: Present: no acute distress Results - Labs CBC & Chem 7: 11/30/16 04:17 11/30/16 05:45 Labs: Laboratory Last Values WBC 12.0 K/mm3 (4.5-11.0) H 11/30/16 04:17 RBC 2.80 M/mm3 (3.65-5.03) L 11/30/16 04:17 Hgb 7.8 gm/dl (10.1-14.3) L 11/30/16 04:17 Hct 23.6 % (30.3-42.9) L 11/30/16 04:17 MCV 84 fl (79-97) 11/30/16 04:17 MCH 28 pg (28-32) 11/30/16 04:17 MCHC 33 % (30-34) 11/30/16 04:17 RDW 16.6 % (13.2-15.2) H 11/30/16 04:17 Plt Count 255 K/mm3 (140-440) 11/30/16 04:17 Lymph % (Auto) 19.2 % (13.4-35.0) 11/30/16 04:17 [place] % (Auto) 11.3 % (0.0-7.3) H 11/30/16 04:17 Eos % (Auto) 1.0 % (0.0-4.3) 11/30/16 04:17 Baso % (Auto) 0.3 % (0.0-1.8) 11/30/16 04:17 Lymph # 2.3 K/mm3 (1.2-5.4) 11/30/16 04:17 [place] # 1.4 K/mm3 (0.0-0.8) H 11/30/16 04:17 Eos # 0.1 K/mm3 (0.0-0.4) 11/30/16 04:17 Baso # 0.0 K/mm3 (0.0-0.1) 11/30/16 04:17 Add Manual Diff Complete 11/22/16 05:00 Total Counted 100 11/22/16 05:00 Seg Neutrophils % 68.2 % (40.0-70.0) 11/30/16 04:17 Seg Neuts % (Manual) 52.0 % (40.0-70.0) 11/22/16 05:00 Band Neutrophils % 37.0 % 11/22/16 05:00 Lymphocytes % (Manual) 7.0 % (13.4-35.0) L 11/22/16 05:00 Reactive Lymphs % (Man) 0 % 11/22/16 05:00 Monocytes % (Manual) 0 % (0.0-7.3) 11/22/16 05:00 Eosinophils % (Manual) 1.0 % (0.0-4.3) 11/22/16 05:00 Basophils % (Manual) 0 % (0.0-1.8) 11/21/16 07:45 Metamyelocytes % 1.0 % 11/22/16 05:00 Myelocytes % 2.0 % 11/22/16 05:00 Promyelocytes % 0 % 11/22/16 05:00 Blast Cells % 0 % 11/22/16 05:00 Nucleated RBC % Not Reportable 11/22/16 05:00 Seg Neutrophils # 8.2 K/mm3 (1.8-7.7) H 11/30/16 04:17 Seg Neutrophils # Man 15.4 K/mm3 (1.8-7.7) H 11/22/16 05:00 Band Neutrophils # 11.0 K/mm3 11/22/16 05:00 Lymphocytes # (Manual) 2.1 K/mm3 (1.2-5.4) 11/22/16 05:00 Abs React Lymphs (Man) 0.0 K/mm3 11/22/16 05:00 Monocytes # (Manual) 0.0 K/mm3 (0.0-0.8) 11/22/16 05:00 Eosinophils # (Manual) 0.3 K/mm3 (0.0-0.4) 11/22/16 05:00 Basophils # (Manual) 0.0 K/mm3 (0.0-0.1) 11/22/16 05:00 Metamyelocytes # 0.3 K/mm3 11/22/16 05:00 Myelocytes # 0.6 K/mm3 11/22/16 05:00 Promyelocytes # 0.0 K/mm3 11/22/16 05:00 Blast Cells # 0.0 K/mm3 11/22/16 05:00 Pathologist Review 09/13/16 04:00 WBC Morphology Not Reportable 11/22/16 05:00 Hypersegmented Neuts Not Reportable 11/22/16 05:00 Hyposegmented Neuts Not Reportable 11/22/16 05:00 Hypogranular Neuts Not Reportable 11/22/16 05:00 Smudge Cells Not Reportable 11/22/16 05:00 Toxic Granulation Not Reportable 11/22/16 05:00 Toxic Vacuolation Not Reportable 11/22/16 05:00 Dohle Bodies Not Reportable 11/22/16 05:00 Pelger-Huet Anomaly Not Reportable 11/22/16 05:00 Jasmina Rods Not Reportable 11/22/16 05:00 Platelet Estimate Not Reportable 11/22/16 05:00 Clumped Platelets Not Reportable 11/22/16 05:00 Plt Clumps, EDTA Not Reportable 11/22/16 05:00 Large Platelets Not Reportable 11/22/16 05:00 Giant Platelets Not Reportable 11/22/16 05:00 Platelet Satelliting Not Reportable 11/22/16 05:00 Plt Morphology Comment Not Reportable 11/22/16 05:00 RBC Morphology Not Reportable 11/22/16 05:00 Dimorphic RBCs Not Reportable 11/22/16 05:00 Polychromasia Few 11/22/16 05:00 Hypochromasia Not Reportable 11/22/16 05:00 Poikilocytosis Not Reportable 11/22/16 05:00 Anisocytosis Not Reportable 11/22/16 05:00 Microcytosis Not Reportable 11/22/16 05:00 Macrocytosis Not Reportable 11/22/16 05:00 Spherocytes Not Reportable 11/22/16 05:00 Pappenheimer Bodies Not Reportable 11/22/16 05:00 Sickle Cells Not Reportable 11/22/16 05:00 Target Cells Not Reportable 11/22/16 05:00 Tear Drop Cells Not Reportable 11/22/16 05:00 Ovalocytes Not Reportable 11/22/16 05:00 Stomatocytes Few 10/06/16 03:50 Helmet Cells Not Reportable 11/22/16 05:00 Monet-Abeytas Bodies Not Reportable 11/22/16 05:00 [place] Rings Not Reportable 11/22/16 05:00 [place] Cells Not Reportable 11/22/16 05:00 Bite Cells Not Reportable 11/22/16 05:00 Crenated Cell Not Reportable 11/22/16 05:00 Elliptocytes Not Reportable 11/22/16 05:00 Acanthocytes (Spur) Not Reportable 11/22/16 05:00 Rouleaux Not Reportable 11/22/16 05:00 Hemoglobin C Crystals Not Reportable 11/22/16 05:00 Schistocytes Not Reportable 11/22/16 05:00 Malaria parasites Not Reportable 11/22/16 05:00 ESR > 140.0 mm/Hr (0-20) 09/08/16 11:48 Jun Bodies Not Reportable 11/22/16 05:00 Hem Pathologist Commnt No 11/22/16 05:00 PT 16.8 Sec. (12.2-14.9) H 11/17/16 03:20 INR 1.37 (0.87-1.13) H 11/17/16 03:20 APTT 33.0 Sec. (24.2-36.6) 10/09/16 03:45 Thrombin Time 16.8 Sec. (15.1-19.6) 09/03/16 00:10 Fibrinogen 750 mg/dl (211-480) H 09/08/16 11:48 Lupus Anticoagulant see below 09/12/16 09:59 LA PTT Baseline See scanned report 09/12/16 09:59 dRVVT Confirm Interp Positive (Negative) H 09/12/16 09:59 dRVVT Screen 50:50 See scanned report 09/12/16 09:59 dRVVT Mix Interpret See scanned report 09/12/16 09:59 Protein C Antigen 122 % (70-140) 09/08/16 15:35 Free Protein S 97 % normal (50-147) 09/08/16 15:35 Total Protein S 109 % (70-140) 09/08/16 15:35 Antithrombin III Ag 100 % (80-120) 09/08/16 15:35 Heparin Anti-Xa, Unfract Negative (Negative) 09/29/16 13:35 Factor V Activity 182 % (65-150) H 09/08/16 15:35 POC ABG pH 7.487 (7.35-7.45) H 11/25/16 14:12 ABG pH 7.405 pH Units (7.350-7.450) 11/29/16 03:33 POC ABG pCO2 39.0 (35-45) 11/25/16 14:12 ABG pCO2 39.6 mm Hg 11/29/16 03:33 POC ABG pO2 153 (80-105) H 11/25/16 14:12 ABG pO2 84.3 mm Hg (80.0-90.0) 11/29/16 03:33 POC ABG HCO3 29.5 11/25/16 14:12 ABG HCO3 24.2 mmol/L (20.0-26.0) 11/29/16 03:33 POC ABG Total CO2 31 11/25/16 14:12 POC ABG O2 Sat 99 11/25/16 14:12 ABG O2 Saturation 97.1 % (95.0-99.0) 11/29/16 03:33 ABG O2 Content 9.5 (0.0-44) 11/29/16 03:33 POC ABG Base Excess 6 11/25/16 14:12 ABG Base Excess -0.4 mmol/L (-2.0-3.0) 11/29/16 03:33 ABG Hemoglobin 7.0 gm/dl (12.0-16.0) L 11/29/16 03:33 ABG Carboxyhemoglobin 1.7 % (0.0-5.0) 11/29/16 03:33 ABG Methemoglobin 0.5 % (0.0-1.5) 11/29/16 03:33 Oxyhemoglobin 94.9 % (95.0-99.0) L 11/29/16 03:33 FiO2 28 % 11/29/16 03:33 Sodium 140 mmol/L (137-145) D 11/30/16 05:45 Potassium 3.7 mmol/L (3.6-5.0) D 11/30/16 05:45 Chloride 100.5 mmol/L (98-107) 11/30/16 05:45 Carbon Dioxide 25 mmol/L (22-30) 11/30/16 05:45 Anion Gap 18 mmol/L 11/30/16 05:45 BUN 45 mg/dL (7-17) H 11/30/16 05:45 Creatinine 1.6 mg/dL (0.7-1.2) H 11/30/16 05:45 Estimated GFR 42 ml/min 11/30/16 05:45 BUN/Creatinine Ratio 28 % 11/30/16 05:45 Glucose 131 mg/dL (65-100) H 11/30/16 05:45 POC Glucose 146 (70-105) H 11/30/16 11:10 Osmolality 351 Mosm/kg 09/16/16 11:47 Lactic Acid 4.50 mmol/L (0.7-2.0) H* 09/28/16 07:25 Calcium 8.5 mg/dL (8.4-10.2) D 11/30/16 05:45 Phosphorus 4.10 mg/dL (2.5-4.5) 11/30/16 04:17 Magnesium 2.20 mg/dL (1.7-2.3) 11/30/16 04:17 Total Bilirubin 0.60 mg/dL (0.1-1.2) 11/25/16 04:42 Direct Bilirubin 0.3 mg/dL (0-0.2) H 10/10/16 05:00 Indirect Bilirubin 0.1 mg/dL 10/10/16 05:00 AST 19 units/L (5-40) 11/25/16 04:42 ALT 15 units/L (7-56) 11/25/16 04:42 Alkaline Phosphatase 142 units/L (35-129) H 11/25/16 04:42 Ammonia 27.0 umol/L (25-60) 09/07/16 08:37 Lactate Dehydrogenase 196 units/L (91-180) H 11/11/16 06:59 Total Creatine Kinase 121 units/L (30-135) 09/29/16 20:12 CK-MB (CK-2) < 1.0 ng/mL (0.0-4.0) 09/29/16 20:12 CK-MB (CK-2) Rel Index 0.8 (0-4) 09/29/16 20:12 Troponin T 0.204 ng/mL (0.00-0.029) H* 09/29/16 20:12 C-Reactive Protein 11.40 mg/dL (0.00-1.30) H 11/05/16 13:25 Total Protein 5.7 g/dL (6.3-8.2) L 11/25/16 04:42 Albumin 1.5 g/dL (3.9-5) L 11/25/16 04:42 Albumin/Globulin Ratio 0.4 % 11/25/16 04:42 Prealbumin 0.180 g/L (0.200-0.400) L 11/06/16 06:25 Triglycerides 137 mg/dL (2-149) 09/29/16 20:12 Cholesterol 31 mg/dL (50-199) L 09/29/16 20:12 LDL Cholesterol Direct 4 mg/dL (50-130) L 09/29/16 20:12 HDL Cholesterol 3 mg/dL (40-59) L 09/29/16 20:12 Cholesterol/HDL Ratio 10.33 % 09/29/16 20:12 Angiotensin Convert Enz See scanned report 09/08/16 11:48 Renin 0.99 ng/mL/h (0.25-5.82) 10/07/16 10:56 Aldosterone <1 ng/dL () 10/07/16 10:56 Aldosterone/Renin Dir see below 10/07/16 10:56 Serotonin Release Assay See scanned report 09/29/16 13:35 TSH 1.010 mlU/mL (0.270-4.200) 09/07/16 08:37 HCG, Qual Negative (Negative) 09/03/16 00:10 Urine Color Yellow (Yellow) 11/05/16 13:09 Urine Turbidity Clear (Clear) 11/05/16 13:09 Urine pH 9.0 (5.0-7.0) H 11/05/16 13:09 Ur Specific [place] 1.011 (1.003-1.030) 11/05/16 13:09 Urine Protein 100 mg/dl mg/dL (Negative) 11/05/16 13:09 Urine Glucose (UA) Neg mg/dL (Negative) 11/05/16 13:09 Urine Ketones Neg mg/dL (Negative) 11/05/16 13:09 Urine Blood Neg (Negative) 11/05/16 13:09 Urine Nitrite Neg (Negative) 11/05/16 13:09 Urine Bilirubin Neg (Negative) 11/05/16 13:09 Urine Urobilinogen < 2.0 mg/dL (<2.0) 11/05/16 13:09 Ur Leukocyte Esterase Neg (Negative) 11/05/16 13:09 Urine WBC (Auto) 4.0 /HPF (0.0-6.0) 11/05/16 13:09 Urine RBC (Auto) 1.0 /HPF (0.0-6.0) 11/05/16 13:09 U Epithel Cells (Auto) 1.0 /HPF (0-13.0) 10/07/16 18:30 Urine Bacteria (Auto) 4+ /HPF (Negative) 11/05/16 13:09 Urine WBC Clumps 2+ /HPF 09/07/16 02:47 Hyaline Casts 4 /LPF 09/07/16 02:47 Urine Mucus Few /HPF 10/07/16 18:30 Urine Yeast (Budding) 3+ /HPF 10/07/16 18:30 Urine Eosinophils None seen (None Seen) 09/07/16 16:00 Urine Total Volume 950 11/12/16 10:18 Urine Creatinine 19.7 mg/dL (0.1-20.0) 11/12/16 10:18 Height (in) 65.0 inches 11/12/16 10:18 Weight (lb) 181.0 lbs 11/12/16 10:18 Creatinine Clearance 5 11/12/16 10:18 Urine Sodium 36 mEq/L 09/16/16 19:19 Urine Total Protein 16 mg/dL (5-11.8) H 09/16/16 19:19 Fluid Total Protein < 3.0 (15.0-45.0) L 11/10/16 14:20 Fluid LDH 123 11/10/16 14:20 Vancomycin Trough 2.3 ug/mL (5.0-20.0) L 09/21/16 13:00 Random Vancomycin 16.5 ug/mL (0-40.0) 11/28/16 09:45 Urine Opiates Screen Presumptive negative 09/03/16 15:11 Urine Methadone Screen Presumptive positive 09/03/16 15:11 Ur Barbiturates Screen Presumptive positive 09/03/16 15:11 Ur Phencyclidine Scrn Presumptive negative 09/03/16 15:11 Ur Amphetamines Screen Presumptive negative 09/03/16 15:11 U Benzodiazepines Scrn Presumptive negative 09/03/16 15:11 Urine Cocaine Screen Presumptive negative 09/03/16 15:11 U Marijuana (THC) Screen Presumptive positive 09/03/16 15:11 Drugs of Abuse Note Disclamer 09/03/16 15:11 Rheumatoid Factor 24 IU/ml (0-13) H 09/08/16 11:48 SAHIL Screen Negative (Negative) 09/07/16 09:20 Proteinase 3 (PR3) Ab <1.0 AI (<1.0) 09/07/16 09:20 Myeloperoxidase Ab <1.0 AI (<1.0) 09/07/16 09:20 Sjogren's Antibody <1.0 AI (<1.0) 09/08/16 15:35 Scl-70 Scleroderma Ab <1.0 AI (<1.0) 09/08/16 15:35 Centromere B Antibody <1.0 AI (<1.0) 09/08/16 12:02 Heparin-induced Plt Ab Negative (Negative) 09/29/16 13:35 UF Heparin High Dose 11 % Release 09/29/16 13:35 SUDHIR UFH Low Dose 0.1 6 % Release 09/29/16 13:35 SUDHIR UFH Low Dose 0.5 8 % Release 09/29/16 13:35 Cardiolipid IgG Ab <14 GPL (<=14) 09/12/16 09:59 Cardiolipid IgA Ab <11 APL (<=11) 09/12/16 09:59 Cardiolipid IgM Ab <12 MPL (<=12) 09/12/16 09:59 Complement C3 148 mg/dL (90-180) 09/07/16 09:20 Complement C4 58 mg/dL (16-47) H 09/07/16 09:20 RPR Nonreactive (Nonreactive) 09/08/16 11:48 Hepatitis A IgM Ab Non-reactive (NonReactive) 09/24/16 14:40 Hep Bs Antigen Non-reactive (Negative) 09/24/16 14:40 Hep B Core IgM Ab Non-reactive (NonReactive) 09/24/16 14:40 Hepatitis C Antibody Non-reactive (NonReactive) 09/24/16 14:40 HIV 1&2 Antibody Rapid Non react (Non React) 09/08/16 11:48 HIV P24 Antigen Non react (Non React) 09/08/16 11:48 Miscellaneous Test Flexitest 1 H 11/05/16 13:25 Blood Type A POSITIVE 11/24/16 11:20 Antibody Screen TNR 11/24/16 11:20 DELORIS Antibody Screen Negative 11/24/16 11:20 Crossmatch See Detail 11/24/16 11:20
[2016-11-30] MEDS ORDERED: TPN ADULT IV SCH (20:00)
[2016-11-30 23:55] LABS: ABG Base Excess 0.8 mmol/L (-2.0-3.0); ABG Methemoglobin 0.5 % (0.0-1.5); ABG Oxygen Saturation 96.9 % (95.0-99.0); ABG PH 7.436 pH Units (7.350-7.450)
[2016-12-01] MEDS: APRESOLINE IV SCH ×2 (00:50→06:07)
[2016-12-01] MEDS: HumuLIN R SUB-Q SCH ×3 (01:54→14:33)
[2016-12-01] MEDS: NORMODYNE IV SCH ×2 (01:55→08:21)
[2016-12-01] MEDS: MORPHINE IV PRN ×2 (03:52→16:24)
[2016-12-01 04:00] LABS: Basophils % (Auto) 0.3 % (0.0-1.8); Eosinophils # (Auto) 0.2 K/mm3 (0.0-0.4); Eosinophils % (Auto) 1.5 % (0.0-4.3); Hematocrit 23.7 % (30.3-42.9); Hemoglobin 7.8 gm/dl (10.1-14.3); Lymphocytes # (Auto) 2.4 K/mm3 (1.2-5.4); Lymphocytes % (Auto) 19.6 % (13.4-35.0); Mean Corpuscular HGB Conc 33 % (30-34); Mean Corpuscular Hemoglobin 28 pg (28-32); Mean Corpuscular Volume 84 fl (79-97); Monocytes # (Auto) 1.2 K/mm3 (0.0-0.8); Monocytes % (Auto) 9.8 % (0.0-7.3); Platelet Count 284 K/mm3 (140-440); Red Blood Count 2.82 M/mm3 (3.65-5.03); Red Cell Distribution Width 16.7 % (13.2-15.2)
[2016-12-01 04:29] LABS: Calcium 9.2 mg/dL (8.4-10.2)
[2016-12-01] MEDS: LASIX IV SCH ×2 (06:08→17:48)
[2016-12-01] MEDS ORDERED: NACL 0.9% 100 ML IV PRN (08:16)
[2016-12-01] MEDS: HEPARIN SUB-Q SCH ×2 (10:02→22:09)
--- NOTE | 2016-12-01 11:21 | Progress Note ---
Assessment and Plan Acute Hypoxemic Respiratory Failure (now with exacerbation and back on MVS) Hypertension (unable to receive p.o. meds) s/p tracheostomy Acute encephalopathy s/p CVA Oropharyngeal dysphagia Enterococcal bacteremia sepsis syndrome Anemia Obesity JUANITA now on hemodialysis Enteric Fistula (CXR with increasing volume overload pattern) - For Dialysis today - keep on PSV during dialysis today then resume t-piece trials after dialysis - ABG at 10pm tinight and keep on RTC t-piece therafter as tolerated if no critical values - Placed PICC line for TPN administration - continue scopolamine for secretion control - continue to wean FiO2 for sats > 94% - continue bronchodilators and pulmonary toilet - VAP bundle addressed - change IV metorolol to prn if rate controlled by enteral metoprolol and amlodipine - continue HD/UF per nephrology (for HD/UF session today) - continue to follow electrolytes and correct as necessary - continue TPN in short term nntil enteral nutrition is tolerated and at goal rate - continue GI & VTE prophylaxis - Continue flu & pneumovax per protocol .....family conference tentatively scheduled to discuss care goals and end of life issues ... remains critically ill on life sustaining interventions including MVS and at risk for further deterioration including ....30' CCT today without overlap Subjective Date of service: 12/01/16 Principal diagnosis: Acute resp failure on MVS; S/P Acute CVA; Acute Encephalopathy; JUANITA Interval history: Patient is seen today for: acute hypoxemic respiratory failure s/p tracheostomy and on MVS Seen and examined at bedside; 24hour events reviewed; nursing and respiratory care staff consulted; no adverse overnight events reported to me; remains on MVS ; on PSV 11/24; tolerated t-piece til midnight yesterday; no emesis or overt aspiration; cleared by surgery to resume enteral nutrition and we deo begin p.o. amlodipine and other scheduled meds for tachycardia & HTN Objective Vital Signs - 12hr 11/30/16 12/01/16 12/01/16 23:31 00:00 00:30 Temperature 98.1 F Pulse Rate 127 H 125 H 125 H Respiratory 28 H 25 H 15 Rate Blood Pressure 170/92 193/106 205/107 O2 Sat by Pulse 98 99 99 Oximetry O2 Sat by Pulse Oximetry [ Assessment] 12/01/16 12/01/16 12/01/16 00:32 00:34 00:50 Temperature Pulse Rate 125 H 126 H Respiratory Rate Blood Pressure 199/105 O2 Sat by Pulse 99 Oximetry O2 Sat by Pulse 99 Oximetry [ Assessment] 12/01/16 12/01/16 12/01/16 00:58 01:01 01:30 Temperature Pulse Rate 131 H 132 H 132 H Respiratory 21 20 Rate Blood Pressure 199/105 156/85 186/102 O2 Sat by Pulse 99 97 98 Oximetry O2 Sat by Pulse Oximetry [ Assessment] 12/01/16 12/01/16 12/01/16 01:55 02:00 02:30 Temperature Pulse Rate 132 H 105 H 113 H Respiratory 15 21 Rate Blood Pressure 193/105 159/92 163/104 O2 Sat by Pulse 99 100 Oximetry O2 Sat by Pulse Oximetry [ Assessment] 12/01/16 12/01/16 12/01/16 03:00 03:30 03:44 Temperature Pulse Rate 119 H 126 H 128 H Respiratory 16 17 Rate Blood Pressure 206/109 205/115 206/110 O2 Sat by Pulse 100 100 100 Oximetry O2 Sat by Pulse Oximetry [ Assessment] 12/01/16 12/01/16 12/01/16 04:00 04:01 04:30 Temperature 98.3 F Pulse Rate 124 H 135 H Respiratory 32 H 16 14 Rate Blood Pressure 195/110 223/136 O2 Sat by Pulse 99 100 100 Oximetry O2 Sat by Pulse Oximetry [ Assessment] 12/01/16 12/01/16 12/01/16 05:00 05:30 06:00 Temperature Pulse Rate 125 H 129 H 103 H Respiratory 16 22 21 Rate Blood Pressure 188/124 204/124 184/117 O2 Sat by Pulse Oximetry O2 Sat by Pulse Oximetry [ Assessment] 12/01/16 12/01/16 12/01/16 06:07 06:30 07:01 Temperature Pulse Rate 128 H 110 H 117 H Respiratory 22 22 Rate Blood Pressure 214/124 157/106 166/106 O2 Sat by Pulse 100 Oximetry O2 Sat by Pulse Oximetry [ Assessment] 12/01/16 12/01/16 12/01/16 07:30 07:35 08:00 Temperature 98.6 F Pulse Rate 121 H 126 H Respiratory 20 18 Rate Blood Pressure 181/111 182/115 O2 Sat by Pulse 100 100 Oximetry O2 Sat by Pulse Oximetry [ Assessment] 12/01/16 12/01/16 12/01/16 08:19 08:21 08:30 Temperature Pulse Rate 125 H 124 H 107 H Respiratory 27 H Rate Blood Pressure 191/120 191/120 166/96 O2 Sat by Pulse 100 99 Oximetry O2 Sat by Pulse Oximetry [ Assessment] 12/01/16 12/01/16 12/01/16 09:00 09:30 10:01 Temperature Pulse Rate 115 H 123 H 120 H Respiratory 25 H 18 22 Rate Blood Pressure 169/96 177/108 167/98 O2 Sat by Pulse 99 99 Oximetry O2 Sat by Pulse Oximetry [ Assessment] Constitutional: appears uncomfortable, other (eyes open but not tracking movements in room) Eyes: non-icteric, other (tracheostomy tube in midline of neck) ENT: oropharynx moist, oropharyngeal exudate pre Neck: supple, no lymphadenopathy, no JVD, other (no thyromegaly) Effort: mildly labored Ascultation: Bilateral: diminished breath sounds (bases), rhonchi Percussion: Bilateral: dull (bases) Cardiovascular: regular rate and rhythm, other (tachycardia improved but persistent on IV metoprolol) Gastrointestinal: hypoactive bowel sounds, soft, non-tender, non-distended, other (RLQ stomas with colostomy bags as well as LUQ over PEG stoma) Integumentary: rash (to legs), other (normal skin tugor; no tenting) Extremities: no cyanosis, pulses normal, no ischemia or petechiae, edema Neurologic: pupils equal and round, unable to assess, other (encephalopathic; PERRL) Psychiatric: other (unable to assess; not responsive) CBC and BMP: 12/01/16 03:35 12/01/16 03:35 ABG, PT/INR, D-dimer: ABG POC ABG pH 7.487 (7.35-7.45) H 11/25/16 14:12 ABG pH 7.436 pH Units (7.350-7.450) 11/30/16 23:35 POC ABG pCO2 39.0 (35-45) 11/25/16 14:12 ABG pCO2 38.0 mm Hg 11/30/16 23:35 POC ABG pO2 153 (80-105) H 11/25/16 14:12 ABG pO2 83.0 mm Hg (80.0-90.0) 11/30/16 23:35 POC ABG HCO3 29.5 11/25/16 14:12 POC ABG Total CO2 31 11/25/16 14:12 POC ABG O2 Sat 99 11/25/16 14:12 ABG O2 Saturation 96.9 % (95.0-99.0) 11/30/16 23:35 PT/INR, D-dimer PT 16.8 Sec. (12.2-14.9) H 11/17/16 03:20 INR 1.37 (0.87-1.13) H 11/17/16 03:20 Abnormal lab findings: Abnormal Labs 09/03/16 09/03/16 09/03/16 12:12 15:07 16:20 WBC RBC Hgb Hct MCV MCH MCHC RDW Plt Count Lymph % (Auto) [place] % (Auto) Lymph # [place] # Baso # Seg Neutrophils % Seg Neuts % (Manual) Lymphocytes % (Manual) Monocytes % (Manual) Eosinophils % (Manual) Basophils % (Manual) Nucleated RBC % Seg Neutrophils # Seg Neutrophils # Man Lymphocytes # (Manual) Monocytes # (Manual) Eosinophils # (Manual) PT INR Fibrinogen dRVVT Confirm Interp Factor V Activity POC ABG pH 7.452 H POC ABG pCO2 POC ABG pO2 ABG pO2 ABG HCO3 ABG Hemoglobin Oxyhemoglobin Sodium Potassium Chloride Carbon Dioxide BUN Creatinine Glucose POC Glucose 178 H Lactic Acid Calcium Phosphorus 2.20 L Magnesium 1.60 L Direct Bilirubin AST ALT Alkaline Phosphatase Lactate Dehydrogenase Troponin T C-Reactive Protein Total Protein Albumin Prealbumin Triglycerides Cholesterol LDL Cholesterol Direct HDL Cholesterol Urine pH Urine WBC (Auto) Urine Creatinine Urine Total Protein Fluid Total Protein Vancomycin Trough Rheumatoid Factor Complement C4 Miscellaneous Test Crossmatch 09/03/16 09/03/16 09/03/16 17:57 17:58 23:50 WBC RBC Hgb Hct MCV MCH MCHC RDW Plt Count Lymph % (Auto) [place] % (Auto) Lymph # [place] # Baso # Seg Neutrophils % Seg Neuts % (Manual) Lymphocytes % (Manual) Monocytes % (Manual) Eosinophils % (Manual) Basophils % (Manual) Nucleated RBC % Seg Neutrophils # Seg Neutrophils # Man Lymphocytes # (Manual) Monocytes # (Manual) Eosinophils # (Manual) PT INR Fibrinogen dRVVT Confirm Interp Factor V Activity POC ABG pH POC ABG pCO2 POC ABG pO2 ABG pO2 ABG HCO3 ABG Hemoglobin Oxyhemoglobin Sodium Potassium Chloride Carbon Dioxide BUN Creatinine Glucose POC Glucose 162 H 145 H Lactic Acid Calcium Phosphorus 2.30 L Magnesium Direct Bilirubin AST ALT Alkaline Phosphatase Lactate Dehydrogenase Troponin T C-Reactive Protein Total Protein Albumin Prealbumin Triglycerides Cholesterol LDL Cholesterol Direct HDL Cholesterol Urine pH Urine WBC (Auto) Urine Creatinine Urine Total Protein Fluid Total Protein Vancomycin Trough Rheumatoid Factor Complement C4 Miscellaneous Test Crossmatch 09/04/16 09/04/16 09/04/16 03:31 03:31 05:42 WBC RBC Hgb 9.7 L D Hct MCV 72 L MCH 23 L MCHC RDW 17.5 H Plt Count Lymph % (Auto) 11.1 L [place] % (Auto) Lymph # [place] # Baso # Seg Neutrophils % 84.3 H Seg Neuts % (Manual) Lymphocytes % (Manual) Monocytes % (Manual) Eosinophils % (Manual) Basophils % (Manual) Nucleated RBC % Seg Neutrophils # 8.9 H Seg Neutrophils # Man Lymphocytes # (Manual) Monocytes # (Manual) Eosinophils # (Manual) PT INR Fibrinogen dRVVT Confirm Interp Factor V Activity POC ABG pH POC ABG pCO2 POC ABG pO2 ABG pO2 ABG HCO3 ABG Hemoglobin Oxyhemoglobin Sodium 135 L Potassium 2.9 L* Chloride 97.2 L Carbon Dioxide 19 L BUN Creatinine 1.7 H Glucose 170 H POC Glucose 152 H Lactic Acid Calcium Phosphorus Magnesium Direct Bilirubin AST ALT Alkaline Phosphatase Lactate Dehydrogenase Troponin T C-Reactive Protein Total Protein Albumin Prealbumin Triglycerides 160 H Cholesterol LDL Cholesterol Direct HDL Cholesterol 31 L Urine pH Urine WBC (Auto) Urine Creatinine Urine Total Protein Fluid Total Protein Vancomycin Trough Rheumatoid Factor Complement C4 Miscellaneous Test Crossmatch 09/04/16 09/04/16 09/04/16 11:34 17:46 23:29 WBC RBC Hgb Hct MCV MCH MCHC RDW Plt Count Lymph % (Auto) [place] % (Auto) Lymph # [place] # Baso # Seg Neutrophils % Seg Neuts % (Manual) Lymphocytes % (Manual) Monocytes % (Manual) Eosinophils % (Manual) Basophils % (Manual) Nucleated RBC % Seg Neutrophils # Seg Neutrophils # Man Lymphocytes # (Manual) Monocytes # (Manual) Eosinophils # (Manual) PT INR Fibrinogen dRVVT Confirm Interp Factor V Activity POC ABG pH POC ABG pCO2 POC ABG pO2 ABG pO2 ABG HCO3 ABG Hemoglobin Oxyhemoglobin Sodium Potassium Chloride Carbon Dioxide BUN Creatinine Glucose POC Glucose 165 H 210 H 139 H Lactic Acid Calcium Phosphorus Magnesium Direct Bilirubin AST ALT Alkaline Phosphatase Lactate Dehydrogenase Troponin T C-Reactive Protein Total Protein Albumin Prealbumin Triglycerides Cholesterol LDL Cholesterol Direct HDL Cholesterol Urine pH Urine WBC (Auto) Urine Creatinine Urine Total Protein Fluid Total Protein Vancomycin Trough Rheumatoid Factor Complement C4 Miscellaneous Test Crossmatch 09/05/16 09/05/16 09/05/16 04:05 04:05 05:38 WBC RBC Hgb Hct MCV 76 L D MCH 23 L MCHC RDW 17.8 H Plt Count Lymph % (Auto) [place] % (Auto) Lymph # [place] # Baso # Seg Neutrophils % Seg Neuts % (Manual) Lymphocytes % (Manual) Monocytes % (Manual) Eosinophils % (Manual) Basophils % (Manual) Nucleated RBC % Seg Neutrophils # Seg Neutrophils # Man Lymphocytes # (Manual) Monocytes # (Manual) Eosinophils # (Manual) PT INR Fibrinogen dRVVT Confirm Interp Factor V Activity POC ABG pH POC ABG pCO2 POC ABG pO2 ABG pO2 ABG HCO3 ABG Hemoglobin Oxyhemoglobin Sodium 134 L Potassium Chloride Carbon Dioxide 18 L BUN Creatinine 1.8 H Glucose 192 H POC Glucose 175 H Lactic Acid Calcium Phosphorus Magnesium Direct Bilirubin AST ALT Alkaline Phosphatase Lactate Dehydrogenase Troponin T C-Reactive Protein Total Protein Albumin Prealbumin Triglycerides Cholesterol LDL Cholesterol Direct HDL Cholesterol Urine pH Urine WBC (Auto) Urine Creatinine Urine Total Protein Fluid Total Protein Vancomycin Trough Rheumatoid Factor Complement C4 Miscellaneous Test Crossmatch 09/05/16 09/05/16 09/05/16 11:38 17:48 23:22 WBC RBC Hgb Hct MCV MCH MCHC RDW Plt Count Lymph % (Auto) [place] % (Auto) Lymph # [place] # Baso # Seg Neutrophils % Seg Neuts % (Manual) Lymphocytes % (Manual) Monocytes % (Manual) Eosinophils % (Manual) Basophils % (Manual) Nucleated RBC % Seg Neutrophils # Seg Neutrophils # Man Lymphocytes # (Manual) Monocytes # (Manual) Eosinophils # (Manual) PT INR Fibrinogen dRVVT Confirm Interp Factor V Activity POC ABG pH POC ABG pCO2 POC ABG pO2 ABG pO2 ABG HCO3 ABG Hemoglobin Oxyhemoglobin Sodium Potassium Chloride Carbon Dioxide BUN Creatinine Glucose POC Glucose 164 H 186 H 195 H Lactic Acid Calcium Phosphorus Magnesium Direct Bilirubin AST ALT Alkaline Phosphatase Lactate Dehydrogenase Troponin T C-Reactive Protein Total Protein Albumin Prealbumin Triglycerides Cholesterol LDL Cholesterol Direct HDL Cholesterol Urine pH Urine WBC (Auto) Urine Creatinine Urine Total Protein Fluid Total Protein Vancomycin Trough Rheumatoid Factor Complement C4 Miscellaneous Test Crossmatch 09/06/16 09/06/16 09/06/16 04:12 05:59 07:32 WBC RBC Hgb Hct MCV MCH MCHC RDW Plt Count Lymph % (Auto) [place] % (Auto) Lymph # [place] # Baso # Seg Neutrophils % Seg Neuts % (Manual) Lymphocytes % (Manual) Monocytes % (Manual) Eosinophils % (Manual) Basophils % (Manual) Nucleated RBC % Seg Neutrophils # Seg Neutrophils # Man Lymphocytes # (Manual) Monocytes # (Manual) Eosinophils # (Manual) PT INR Fibrinogen dRVVT Confirm Interp Factor V Activity POC ABG pH 7.514 H POC ABG pCO2 29.1 L POC ABG pO2 72 L ABG pO2 ABG HCO3 ABG Hemoglobin Oxyhemoglobin Sodium 133 L Potassium 3.4 L Chloride 94.9 L Carbon Dioxide 19 L BUN 30 H Creatinine 2.1 H Glucose 139 H POC Glucose 146 H Lactic Acid Calcium Phosphorus Magnesium Direct Bilirubin AST ALT Alkaline Phosphatase Lactate Dehydrogenase Troponin T C-Reactive Protein Total Protein Albumin Prealbumin Triglycerides Cholesterol LDL Cholesterol Direct HDL Cholesterol Urine pH Urine WBC (Auto) Urine Creatinine Urine Total Protein Fluid Total Protein Vancomycin Trough Rheumatoid Factor Complement C4 Miscellaneous Test Crossmatch 09/06/16 09/06/16 09/06/16 11:57 17:58 19:02 WBC RBC Hgb Hct MCV MCH MCHC RDW Plt Count Lymph % (Auto) [place] % (Auto) Lymph # [place] # Baso # Seg Neutrophils % Seg Neuts % (Manual) Lymphocytes % (Manual) Monocytes % (Manual) Eosinophils % (Manual) Basophils % (Manual) Nucleated RBC % Seg Neutrophils # Seg Neutrophils # Man Lymphocytes # (Manual) Monocytes # (Manual) Eosinophils # (Manual) PT INR Fibrinogen dRVVT Confirm Interp Factor V Activity POC ABG pH 7.465 H POC ABG pCO2 32.0 L POC ABG pO2 ABG pO2 ABG HCO3 ABG Hemoglobin Oxyhemoglobin Sodium Potassium Chloride Carbon Dioxide BUN Creatinine Glucose POC Glucose 165 H 160 H Lactic Acid Calcium Phosphorus Magnesium Direct Bilirubin AST ALT Alkaline Phosphatase Lactate Dehydrogenase Troponin T C-Reactive Protein Total Protein Albumin Prealbumin Triglycerides Cholesterol LDL Cholesterol Direct HDL Cholesterol Urine pH Urine WBC (Auto) Urine Creatinine Urine Total Protein Fluid Total Protein Vancomycin Trough Rheumatoid Factor Complement C4 Miscellaneous Test Crossmatch 09/06/16 09/07/16 09/07/16 23:45 02:47 02:47 WBC RBC Hgb Hct MCV MCH MCHC RDW Plt Count Lymph % (Auto) [place] % (Auto) Lymph # [place] # Baso # Seg Neutrophils % Seg Neuts % (Manual) Lymphocytes % (Manual) Monocytes % (Manual) Eosinophils % (Manual) Basophils % (Manual) Nucleated RBC % Seg Neutrophils # Seg Neutrophils # Man Lymphocytes # (Manual) Monocytes # (Manual) Eosinophils # (Manual) PT INR Fibrinogen dRVVT Confirm Interp Factor V Activity POC ABG pH POC ABG pCO2 POC ABG pO2 ABG pO2 ABG HCO3 ABG Hemoglobin Oxyhemoglobin Sodium Potassium Chloride Carbon Dioxide BUN Creatinine Glucose POC Glucose 204 H Lactic Acid Calcium Phosphorus Magnesium Direct Bilirubin AST ALT Alkaline Phosphatase Lactate Dehydrogenase Troponin T C-Reactive Protein Total Protein Albumin Prealbumin Triglycerides Cholesterol LDL Cholesterol Direct HDL Cholesterol Urine pH Urine WBC (Auto) 68.0 H Urine Creatinine 106.1 H Urine Total Protein Fluid Total Protein Vancomycin Trough Rheumatoid Factor Complement C4 Miscellaneous Test Crossmatch 09/07/16 09/07/16 09/07/16 04:50 06:19 06:39 WBC RBC Hgb Hct MCV MCH MCHC RDW Plt Count Lymph % (Auto) [place] % (Auto) Lymph # [place] # Baso # Seg Neutrophils % Seg Neuts % (Manual) Lymphocytes % (Manual) Monocytes % (Manual) Eosinophils % (Manual) Basophils % (Manual) Nucleated RBC % Seg Neutrophils # Seg Neutrophils # Man Lymphocytes # (Manual) Monocytes # (Manual) Eosinophils # (Manual) PT INR Fibrinogen dRVVT Confirm Interp Factor V Activity POC ABG pH 7.457 H POC ABG pCO2 32.1 L POC ABG pO2 76 L ABG pO2 ABG HCO3 ABG Hemoglobin Oxyhemoglobin Sodium 132 L Potassium Chloride 94.7 L Carbon Dioxide BUN 53 H Creatinine 2.9 H Glucose 151 H POC Glucose 149 H Lactic Acid Calcium Phosphorus Magnesium Direct Bilirubin AST ALT Alkaline Phosphatase Lactate Dehydrogenase Troponin T C-Reactive Protein Total Protein Albumin Prealbumin Triglycerides Cholesterol LDL Cholesterol Direct HDL Cholesterol Urine pH Urine WBC (Auto) Urine Creatinine Urine Total Protein Fluid Total Protein Vancomycin Trough Rheumatoid Factor Complement C4 Miscellaneous Test Crossmatch 09/07/16 09/07/16 09/07/16 09:20 11:43 11:43 WBC 19.4 H RBC Hgb 8.3 L Hct 26.4 L D MCV 72 L D MCH 22 L MCHC RDW 17.9 H Plt Count Lymph % (Auto) 8.5 L [place] % (Auto) Lymph # [place] # 1.0 H Baso # Seg Neutrophils % 85.8 H Seg Neuts % (Manual) Lymphocytes % (Manual) Monocytes % (Manual) Eosinophils % (Manual) Basophils % (Manual) Nucleated RBC % Seg Neutrophils # 16.6 H Seg Neutrophils # Man Lymphocytes # (Manual) Monocytes # (Manual) Eosinophils # (Manual) PT INR Fibrinogen dRVVT Confirm Interp Factor V Activity POC ABG pH POC ABG pCO2 POC ABG pO2 ABG pO2 ABG HCO3 ABG Hemoglobin Oxyhemoglobin Sodium 134 L Potassium Chloride 97.2 L Carbon Dioxide 20 L BUN 58 H Creatinine 2.9 H Glucose 147 H POC Glucose Lactic Acid Calcium Phosphorus 2.40 L Magnesium 2.40 H Direct Bilirubin AST ALT Alkaline Phosphatase Lactate Dehydrogenase Troponin T C-Reactive Protein Total Protein 5.8 L Albumin 2.2 L Prealbumin Triglycerides Cholesterol LDL Cholesterol Direct HDL Cholesterol Urine pH Urine WBC (Auto) Urine Creatinine Urine Total Protein Fluid Total Protein Vancomycin Trough Rheumatoid Factor Complement C4 58 H Miscellaneous Test Crossmatch 09/07/16 09/07/16 09/07/16 11:50 16:00 17:31 WBC RBC Hgb Hct MCV MCH MCHC RDW Plt Count Lymph % (Auto) [place] % (Auto) Lymph # [place] # Baso # Seg Neutrophils % Seg Neuts % (Manual) Lymphocytes % (Manual) Monocytes % (Manual) Eosinophils % (Manual) Basophils % (Manual) Nucleated RBC % Seg Neutrophils # Seg Neutrophils # Man Lymphocytes # (Manual) Monocytes # (Manual) Eosinophils # (Manual) PT INR Fibrinogen dRVVT Confirm Interp Factor V Activity POC ABG pH POC ABG pCO2 POC ABG pO2 158 H ABG pO2 ABG HCO3 ABG Hemoglobin Oxyhemoglobin Sodium Potassium Chloride Carbon Dioxide BUN Creatinine Glucose POC Glucose 175 H Lactic Acid Calcium Phosphorus Magnesium Direct Bilirubin AST ALT Alkaline Phosphatase Lactate Dehydrogenase Troponin T C-Reactive Protein Total Protein Albumin Prealbumin Triglycerides Cholesterol LDL Cholesterol Direct HDL Cholesterol Urine pH Urine WBC (Auto) Urine Creatinine 66.3 H Urine Total Protein Fluid Total Protein Vancomycin Trough Rheumatoid Factor Complement C4 Miscellaneous Test Crossmatch 09/07/16 09/08/16 09/08/16 23:50 05:46 06:18 WBC 17.8 H RBC 3.58 L Hgb 8.1 L Hct 25.5 L MCV 71 L MCH 23 L MCHC RDW 18.4 H Plt Count Lymph % (Auto) [place] % (Auto) Lymph # [place] # Baso # Seg Neutrophils % Seg Neuts % (Manual) 92.0 H Lymphocytes % (Manual) 6.0 L Monocytes % (Manual) Eosinophils % (Manual) Basophils % (Manual) Nucleated RBC % Seg Neutrophils # Seg Neutrophils # Man 16.4 H Lymphocytes # (Manual) 1.1 L Monocytes # (Manual) Eosinophils # (Manual) PT INR Fibrinogen dRVVT Confirm Interp Factor V Activity POC ABG pH POC ABG pCO2 34.3 L POC ABG pO2 71 L ABG pO2 ABG HCO3 ABG Hemoglobin Oxyhemoglobin Sodium Potassium Chloride Carbon Dioxide BUN Creatinine Glucose POC Glucose 216 H Lactic Acid Calcium Phosphorus Magnesium Direct Bilirubin AST ALT Alkaline Phosphatase Lactate Dehydrogenase Troponin T C-Reactive Protein Total Protein Albumin Prealbumin Triglycerides Cholesterol LDL Cholesterol Direct HDL Cholesterol Urine pH Urine WBC (Auto) Urine Creatinine Urine Total Protein Fluid Total Protein Vancomycin Trough Rheumatoid Factor Complement C4 Miscellaneous Test Crossmatch 09/08/16 09/08/16 09/08/16 06:18 06:51 10:55 WBC RBC Hgb Hct MCV MCH MCHC RDW Plt Count Lymph % (Auto) [place] % (Auto) Lymph # [place] # Baso # Seg Neutrophils % Seg Neuts % (Manual) Lymphocytes % (Manual) Monocytes % (Manual) Eosinophils % (Manual) Basophils % (Manual) Nucleated RBC % Seg Neutrophils # Seg Neutrophils # Man Lymphocytes # (Manual) Monocytes # (Manual) Eosinophils # (Manual) PT INR Fibrinogen dRVVT Confirm Interp Factor V Activity POC ABG pH POC ABG pCO2 POC ABG pO2 ABG pO2 ABG HCO3 ABG Hemoglobin Oxyhemoglobin Sodium 133 L Potassium Chloride 96.9 L Carbon Dioxide 20 L BUN 63 H Creatinine 2.7 H Glucose 195 H POC Glucose 204 H 169 H Lactic Acid Calcium Phosphorus Magnesium Direct Bilirubin AST ALT Alkaline Phosphatase Lactate Dehydrogenase Troponin T C-Reactive Protein Total Protein Albumin Prealbumin Triglycerides Cholesterol LDL Cholesterol Direct HDL Cholesterol Urine pH Urine WBC (Auto) Urine Creatinine Urine Total Protein Fluid Total Protein Vancomycin Trough Rheumatoid Factor Complement C4 Miscellaneous Test Crossmatch 09/08/16 09/08/16 09/08/16 11:48 11:48 11:48 WBC RBC Hgb Hct MCV MCH MCHC RDW Plt Count Lymph % (Auto) [place] % (Auto) Lymph # [place] # Baso # Seg Neutrophils % Seg Neuts % (Manual) Lymphocytes % (Manual) Monocytes % (Manual) Eosinophils % (Manual) Basophils % (Manual) Nucleated RBC % Seg Neutrophils # Seg Neutrophils # Man Lymphocytes # (Manual) Monocytes # (Manual) Eosinophils # (Manual) PT INR Fibrinogen 750 H dRVVT Confirm Interp Factor V Activity POC ABG pH POC ABG pCO2 POC ABG pO2 ABG pO2 ABG HCO3 ABG Hemoglobin Oxyhemoglobin Sodium Potassium Chloride Carbon Dioxide BUN Creatinine Glucose POC Glucose Lactic Acid Calcium Phosphorus Magnesium Direct Bilirubin AST ALT Alkaline Phosphatase Lactate Dehydrogenase Troponin T C-Reactive Protein 15.70 H Total Protein Albumin Prealbumin Triglycerides Cholesterol LDL Cholesterol Direct HDL Cholesterol Urine pH Urine WBC (Auto) Urine Creatinine Urine Total Protein Fluid Total Protein Vancomycin Trough Rheumatoid Factor 24 H Complement C4 Miscellaneous Test Crossmatch 09/08/16 09/08/16 09/09/16 15:35 18:25 00:24 WBC RBC Hgb Hct MCV MCH MCHC RDW Plt Count Lymph % (Auto) [place] % (Auto) Lymph # [place] # Baso # Seg Neutrophils % Seg Neuts % (Manual) Lymphocytes % (Manual) Monocytes % (Manual) Eosinophils % (Manual) Basophils % (Manual) Nucleated RBC % Seg Neutrophils # Seg Neutrophils # Man Lymphocytes # (Manual) Monocytes # (Manual) Eosinophils # (Manual) PT INR Fibrinogen dRVVT Confirm Interp Factor V Activity 182 H POC ABG pH POC ABG pCO2 POC ABG pO2 ABG pO2 ABG HCO3 ABG Hemoglobin Oxyhemoglobin Sodium Potassium Chloride Carbon Dioxide BUN Creatinine Glucose POC Glucose 184 H 216 H Lactic Acid Calcium Phosphorus Magnesium Direct Bilirubin AST ALT Alkaline Phosphatase Lactate Dehydrogenase Troponin T C-Reactive Protein Total Protein Albumin Prealbumin Triglycerides Cholesterol LDL Cholesterol Direct HDL Cholesterol Urine pH Urine WBC (Auto) Urine Creatinine Urine Total Protein Fluid Total Protein Vancomycin Trough Rheumatoid Factor Complement C4 Miscellaneous Test Crossmatch 09/09/16 09/09/16 09/09/16 03:00 03:00 04:04 WBC 27.9 H RBC Hgb 8.7 L Hct 28.1 L MCV 72 L MCH 22 L MCHC RDW 18.4 H Plt Count 485 H Lymph % (Auto) [place] % (Auto) Lymph # [place] # Baso # Seg Neutrophils % Seg Neuts % (Manual) 77.0 H Lymphocytes % (Manual) 9.0 L Monocytes % (Manual) Eosinophils % (Manual) Basophils % (Manual) Nucleated RBC % Seg Neutrophils # Seg Neutrophils # Man 21.5 H Lymphocytes # (Manual) Monocytes # (Manual) 2.0 H Eosinophils # (Manual) PT INR Fibrinogen dRVVT Confirm Interp Factor V Activity POC ABG pH POC ABG pCO2 POC ABG pO2 121 H ABG pO2 ABG HCO3 ABG Hemoglobin Oxyhemoglobin Sodium 135 L Potassium Chloride 96.3 L Carbon Dioxide 21 L BUN 83 H Creatinine 3.0 H Glucose 135 H POC Glucose Lactic Acid Calcium Phosphorus Magnesium Direct Bilirubin AST ALT Alkaline Phosphatase Lactate Dehydrogenase Troponin T C-Reactive Protein Total Protein Albumin Prealbumin Triglycerides Cholesterol LDL Cholesterol Direct HDL Cholesterol Urine pH Urine WBC (Auto) Urine Creatinine Urine Total Protein Fluid Total Protein Vancomycin Trough Rheumatoid Factor Complement C4 Miscellaneous Test Crossmatch 09/09/16 09/09/16 09/09/16 05:41 11:55 14:13 WBC RBC Hgb Hct MCV MCH MCHC RDW Plt Count Lymph % (Auto) [place] % (Auto) Lymph # [place] # Baso # Seg Neutrophils % Seg Neuts % (Manual) Lymphocytes % (Manual) Monocytes % (Manual) Eosinophils % (Manual) Basophils % (Manual) Nucleated RBC % Seg Neutrophils # Seg Neutrophils # Man Lymphocytes # (Manual) Monocytes # (Manual) Eosinophils # (Manual) PT INR Fibrinogen dRVVT Confirm Interp Factor V Activity POC ABG pH POC ABG pCO2 POC ABG pO2 ABG pO2 ABG HCO3 ABG Hemoglobin Oxyhemoglobin Sodium Potassium Chloride Carbon Dioxide BUN Creatinine Glucose POC Glucose 155 H 186 H Lactic Acid Calcium Phosphorus Magnesium Direct Bilirubin AST ALT Alkaline Phosphatase Lactate Dehydrogenase Troponin T C-Reactive Protein Total Protein Albumin Prealbumin Triglycerides Cholesterol LDL Cholesterol Direct HDL Cholesterol Urine pH Urine WBC (Auto) 25.0 H Urine Creatinine Urine Total Protein Fluid Total Protein Vancomycin Trough Rheumatoid Factor Complement C4 Miscellaneous Test Crossmatch 09/09/16 09/09/16 09/10/16 17:33 23:13 05:09 WBC RBC Hgb Hct MCV MCH MCHC RDW Plt Count Lymph % (Auto) [place] % (Auto) Lymph # [place] # Baso # Seg Neutrophils % Seg Neuts % (Manual) Lymphocytes % (Manual) Monocytes % (Manual) Eosinophils % (Manual) Basophils % (Manual) Nucleated RBC % Seg Neutrophils # Seg Neutrophils # Man Lymphocytes # (Manual) Monocytes # (Manual) Eosinophils # (Manual) PT INR Fibrinogen dRVVT Confirm Interp Factor V Activity POC ABG pH POC ABG pCO2 POC ABG pO2 74 L ABG pO2 ABG HCO3 ABG Hemoglobin Oxyhemoglobin Sodium Potassium Chloride Carbon Dioxide BUN Creatinine Glucose POC Glucose 211 H 215 H Lactic Acid Calcium Phosphorus Magnesium Direct Bilirubin AST ALT Alkaline Phosphatase Lactate Dehydrogenase Troponin T C-Reactive Protein Total Protein Albumin Prealbumin Triglycerides Cholesterol LDL Cholesterol Direct HDL Cholesterol Urine pH Urine WBC (Auto) Urine Creatinine Urine Total Protein Fluid Total Protein Vancomycin Trough Rheumatoid Factor Complement C4 Miscellaneous Test Crossmatch 09/10/16 09/10/16 09/10/16 05:17 05:17 11:31 WBC 15.8 H RBC 3.25 L Hgb 7.3 L Hct 22.9 L MCV 71 L MCH 23 L MCHC RDW 18.4 H Plt Count Lymph % (Auto) [place] % (Auto) Lymph # [place] # Baso # Seg Neutrophils % Seg Neuts % (Manual) 91.0 H Lymphocytes % (Manual) 4.0 L Monocytes % (Manual) Eosinophils % (Manual) Basophils % (Manual) Nucleated RBC % Seg Neutrophils # Seg Neutrophils # Man 14.4 H Lymphocytes # (Manual) 0.6 L Monocytes # (Manual) Eosinophils # (Manual) PT INR Fibrinogen dRVVT Confirm Interp Factor V Activity POC ABG pH POC ABG pCO2 POC ABG pO2 ABG pO2 ABG HCO3 ABG Hemoglobin Oxyhemoglobin Sodium Potassium Chloride Carbon Dioxide 21 L BUN 93 H Creatinine 2.9 H Glucose 146 H POC Glucose 188 H Lactic Acid Calcium 8.1 L Phosphorus Magnesium Direct Bilirubin AST ALT Alkaline Phosphatase Lactate Dehydrogenase Troponin T C-Reactive Protein Total Protein Albumin Prealbumin Triglycerides Cholesterol LDL Cholesterol Direct HDL Cholesterol Urine pH Urine WBC (Auto) Urine Creatinine Urine Total Protein Fluid Total Protein Vancomycin Trough Rheumatoid Factor Complement C4 Miscellaneous Test Crossmatch 09/10/16 09/10/16 09/10/16 13:17 17:20 23:32 WBC RBC Hgb Hct MCV MCH MCHC RDW Plt Count Lymph % (Auto) [place] % (Auto) Lymph # [place] # Baso # Seg Neutrophils % Seg Neuts % (Manual) Lymphocytes % (Manual) Monocytes % (Manual) Eosinophils % (Manual) Basophils % (Manual) Nucleated RBC % Seg Neutrophils # Seg Neutrophils # Man Lymphocytes # (Manual) Monocytes # (Manual) Eosinophils # (Manual) PT INR Fibrinogen dRVVT Confirm Interp Factor V Activity POC ABG pH POC ABG pCO2 POC ABG pO2 ABG pO2 ABG HCO3 ABG Hemoglobin Oxyhemoglobin Sodium Potassium Chloride Carbon Dioxide BUN Creatinine Glucose POC Glucose 199 H 186 H Lactic Acid Calcium Phosphorus Magnesium Direct Bilirubin AST ALT Alkaline Phosphatase Lactate Dehydrogenase Troponin T C-Reactive Protein Total Protein Albumin Prealbumin Triglycerides Cholesterol LDL Cholesterol Direct HDL Cholesterol Urine pH Urine WBC (Auto) Urine Creatinine Urine Total Protein Fluid Total Protein Vancomycin Trough Rheumatoid Factor Complement C4 Miscellaneous Test Crossmatch See Detail 09/11/16 09/11/16 09/11/16 05:10 05:10 05:17 WBC 28.4 H RBC Hgb 9.2 L Hct 29.3 L D MCV 73 L MCH 23 L MCHC RDW 18.9 H Plt Count 452 H Lymph % (Auto) [place] % (Auto) Lymph # [place] # Baso # Seg Neutrophils % Seg Neuts % (Manual) 89.5 H Lymphocytes % (Manual) 2.0 L Monocytes % (Manual) Eosinophils % (Manual) Basophils % (Manual) Nucleated RBC % Seg Neutrophils # Seg Neutrophils # Man 25.4 H Lymphocytes # (Manual) 0.6 L Monocytes # (Manual) 1.3 H Eosinophils # (Manual) PT INR Fibrinogen dRVVT Confirm Interp Factor V Activity POC ABG pH POC ABG pCO2 POC ABG pO2 ABG pO2 ABG HCO3 ABG Hemoglobin Oxyhemoglobin Sodium 136 L Potassium Chloride Carbon Dioxide 18 L BUN 107 H Creatinine 2.6 H Glucose 187 H POC Glucose 230 H Lactic Acid Calcium 8.3 L Phosphorus Magnesium Direct Bilirubin AST ALT Alkaline Phosphatase Lactate Dehydrogenase Troponin T C-Reactive Protein Total Protein Albumin Prealbumin Triglycerides Cholesterol LDL Cholesterol Direct HDL Cholesterol Urine pH Urine WBC (Auto) Urine Creatinine Urine Total Protein Fluid Total Protein Vancomycin Trough Rheumatoid Factor Complement C4 Miscellaneous Test Crossmatch 09/11/16 09/11/16 09/11/16 05:55 12:02 17:32 WBC RBC Hgb Hct MCV MCH MCHC RDW Plt Count Lymph % (Auto) [place] % (Auto) Lymph # [place] # Baso # Seg Neutrophils % Seg Neuts % (Manual) Lymphocytes % (Manual) Monocytes % (Manual) Eosinophils % (Manual) Basophils % (Manual) Nucleated RBC % Seg Neutrophils # Seg Neutrophils # Man Lymphocytes # (Manual) Monocytes # (Manual) Eosinophils # (Manual) PT INR Fibrinogen dRVVT Confirm Interp Factor V Activity POC ABG pH POC ABG pCO2 33.8 L POC ABG pO2 ABG pO2 ABG HCO3 ABG Hemoglobin Oxyhemoglobin Sodium Potassium Chloride Carbon Dioxide BUN Creatinine Glucose POC Glucose 191 H 239 H Lactic Acid Calcium Phosphorus Magnesium Direct Bilirubin AST ALT Alkaline Phosphatase Lactate Dehydrogenase Troponin T C-Reactive Protein Total Protein Albumin Prealbumin Triglycerides Cholesterol LDL Cholesterol Direct HDL Cholesterol Urine pH Urine WBC (Auto) Urine Creatinine Urine Total Protein Fluid Total Protein Vancomycin Trough Rheumatoid Factor Complement C4 Miscellaneous Test Crossmatch 09/11/16 09/12/16 09/12/16 23:52 05:09 05:32 WBC RBC Hgb Hct MCV MCH MCHC RDW Plt Count Lymph % (Auto) [place] % (Auto) Lymph # [place] # Baso # Seg Neutrophils % Seg Neuts % (Manual) Lymphocytes % (Manual) Monocytes % (Manual) Eosinophils % (Manual) Basophils % (Manual) Nucleated RBC % Seg Neutrophils # Seg Neutrophils # Man Lymphocytes # (Manual) Monocytes # (Manual) Eosinophils # (Manual) PT INR Fibrinogen dRVVT Confirm Interp Factor V Activity POC ABG pH POC ABG pCO2 34.6 L POC ABG pO2 ABG pO2 ABG HCO3 ABG Hemoglobin Oxyhemoglobin Sodium Potassium Chloride Carbon Dioxide BUN Creatinine Glucose POC Glucose 265 H 184 H Lactic Acid Calcium Phosphorus Magnesium Direct Bilirubin AST ALT Alkaline Phosphatase Lactate Dehydrogenase Troponin T C-Reactive Protein Total Protein Albumin Prealbumin Triglycerides Cholesterol LDL Cholesterol Direct HDL Cholesterol Urine pH Urine WBC (Auto) Urine Creatinine Urine Total Protein Fluid Total Protein Vancomycin Trough Rheumatoid Factor Complement C4 Miscellaneous Test Crossmatch 09/12/16 09/12/16 09/12/16 06:45 06:45 07:22 WBC 31.7 H RBC 3.54 L Hgb 8.3 L Hct 25.9 L MCV 73 L MCH 23 L MCHC RDW 18.9 H Plt Count Lymph % (Auto) [place] % (Auto) Lymph # [place] # Baso # Seg Neutrophils % Seg Neuts % (Manual) 88.5 H Lymphocytes % (Manual) 4.5 L Monocytes % (Manual) Eosinophils % (Manual) Basophils % (Manual) Nucleated RBC % Seg Neutrophils # Seg Neutrophils # Man 28.1 H Lymphocytes # (Manual) Monocytes # (Manual) 1.0 H Eosinophils # (Manual) PT INR Fibrinogen dRVVT Confirm Interp Factor V Activity POC ABG pH POC ABG pCO2 POC ABG pO2 ABG pO2 ABG HCO3 ABG Hemoglobin Oxyhemoglobin Sodium Potassium Chloride Carbon Dioxide 20 L BUN 115 H Creatinine 2.7 H Glucose 165 H POC Glucose Lactic Acid Calcium 8.0 L Phosphorus Magnesium Direct Bilirubin AST ALT Alkaline Phosphatase Lactate Dehydrogenase Troponin T C-Reactive Protein Total Protein Albumin Prealbumin Triglycerides 217 H Cholesterol LDL Cholesterol Direct HDL Cholesterol Urine pH Urine WBC (Auto) Urine Creatinine Urine Total Protein Fluid Total Protein Vancomycin Trough Rheumatoid Factor Complement C4 Miscellaneous Test Crossmatch 09/12/16 09/12/16 09/12/16 07:22 09:59 12:21 WBC RBC Hgb Hct MCV MCH MCHC RDW Plt Count Lymph % (Auto) [place] % (Auto) Lymph # [place] # Baso # Seg Neutrophils % Seg Neuts % (Manual) Lymphocytes % (Manual) Monocytes % (Manual) Eosinophils % (Manual) Basophils % (Manual) Nucleated RBC % Seg Neutrophils # Seg Neutrophils # Man Lymphocytes # (Manual) Monocytes # (Manual) Eosinophils # (Manual) PT INR Fibrinogen dRVVT Confirm Interp Positive H Factor V Activity POC ABG pH POC ABG pCO2 POC ABG pO2 ABG pO2 ABG HCO3 ABG Hemoglobin Oxyhemoglobin Sodium Potassium Chloride Carbon Dioxide BUN Creatinine Glucose POC Glucose 224 H Lactic Acid Calcium Phosphorus Magnesium Direct Bilirubin AST ALT Alkaline Phosphatase Lactate Dehydrogenase Troponin T C-Reactive Protein 1.70 H Total Protein Albumin Prealbumin Triglycerides Cholesterol LDL Cholesterol Direct HDL Cholesterol Urine pH Urine WBC (Auto) Urine Creatinine Urine Total Protein Fluid Total Protein Vancomycin Trough Rheumatoid Factor Complement C4 Miscellaneous Test Crossmatch 09/12/16 09/12/16 09/13/16 16:51 23:28 04:00 WBC 45.0 H* RBC Hgb 9.4 L Hct MCV 75 L MCH 23 L MCHC RDW 19.0 H Plt Count 470 H Lymph % (Auto) [place] % (Auto) Lymph # [place] # Baso # Seg Neutrophils % Seg Neuts % (Manual) 89.0 H Lymphocytes % (Manual) 5.0 L Monocytes % (Manual) Eosinophils % (Manual) Basophils % (Manual) Nucleated RBC % Seg Neutrophils # Seg Neutrophils # Man 40.1 H Lymphocytes # (Manual) Monocytes # (Manual) Eosinophils # (Manual) PT INR Fibrinogen dRVVT Confirm Interp Factor V Activity POC ABG pH POC ABG pCO2 POC ABG pO2 ABG pO2 ABG HCO3 ABG Hemoglobin Oxyhemoglobin Sodium Potassium Chloride Carbon Dioxide BUN Creatinine Glucose POC Glucose 169 H 150 H Lactic Acid Calcium Phosphorus Magnesium Direct Bilirubin AST ALT Alkaline Phosphatase Lactate Dehydrogenase Troponin T C-Reactive Protein Total Protein Albumin Prealbumin Triglycerides Cholesterol LDL Cholesterol Direct HDL Cholesterol Urine pH Urine WBC (Auto) Urine Creatinine Urine Total Protein Fluid Total Protein Vancomycin Trough Rheumatoid Factor Complement C4 Miscellaneous Test Crossmatch 09/13/16 09/13/16 09/13/16 04:00 11:26 17:31 WBC RBC Hgb Hct MCV MCH MCHC RDW Plt Count Lymph % (Auto) [place] % (Auto) Lymph # [place] # Baso # Seg Neutrophils % Seg Neuts % (Manual) Lymphocytes % (Manual) Monocytes % (Manual) Eosinophils % (Manual) Basophils % (Manual) Nucleated RBC % Seg Neutrophils # Seg Neutrophils # Man Lymphocytes # (Manual) Monocytes # (Manual) Eosinophils # (Manual) PT INR Fibrinogen dRVVT Confirm Interp Factor V Activity POC ABG pH POC ABG pCO2 POC ABG pO2 ABG pO2 ABG HCO3 ABG Hemoglobin Oxyhemoglobin Sodium Potassium Chloride Carbon Dioxide 20 L BUN 116 H Creatinine 3.0 H Glucose 172 H POC Glucose 140 H 183 H Lactic Acid Calcium Phosphorus Magnesium Direct Bilirubin AST ALT Alkaline Phosphatase Lactate Dehydrogenase Troponin T C-Reactive Protein Total Protein 6.2 L Albumin 2.9 L Prealbumin Triglycerides Cholesterol LDL Cholesterol Direct HDL Cholesterol Urine pH Urine WBC (Auto) Urine Creatinine Urine Total Protein Fluid Total Protein Vancomycin Trough Rheumatoid Factor Complement C4 Miscellaneous Test Crossmatch 09/13/16 09/14/16 09/14/16 23:23 04:06 04:07 WBC 29.4 H RBC Hgb 8.9 L Hct 27.3 L MCV 75 L MCH 24 L MCHC RDW 19.1 H Plt Count Lymph % (Auto) [place] % (Auto) Lymph # [place] # Baso # Seg Neutrophils % Seg Neuts % (Manual) 84.0 H Lymphocytes % (Manual) 6.0 L Monocytes % (Manual) 9.0 H Eosinophils % (Manual) Basophils % (Manual) Nucleated RBC % Seg Neutrophils # Seg Neutrophils # Man 24.7 H Lymphocytes # (Manual) Monocytes # (Manual) 2.6 H Eosinophils # (Manual) PT INR Fibrinogen dRVVT Confirm Interp Factor V Activity POC ABG pH 7.342 L POC ABG pCO2 POC ABG pO2 116 H ABG pO2 ABG HCO3 ABG Hemoglobin Oxyhemoglobin Sodium Potassium Chloride Carbon Dioxide BUN Creatinine Glucose POC Glucose 154 H Lactic Acid Calcium Phosphorus Magnesium Direct Bilirubin AST ALT Alkaline Phosphatase Lactate Dehydrogenase Troponin T C-Reactive Protein Total Protein Albumin Prealbumin Triglycerides Cholesterol LDL Cholesterol Direct HDL Cholesterol Urine pH Urine WBC (Auto) Urine Creatinine Urine Total Protein Fluid Total Protein Vancomycin Trough Rheumatoid Factor Complement C4 Miscellaneous Test Crossmatch 09/14/16 09/14/16 09/14/16 04:07 05:29 12:19 WBC RBC Hgb Hct MCV MCH MCHC RDW Plt Count Lymph % (Auto) [place] % (Auto) Lymph # [place] # Baso # Seg Neutrophils % Seg Neuts % (Manual) Lymphocytes % (Manual) Monocytes % (Manual) Eosinophils % (Manual) Basophils % (Manual) Nucleated RBC % Seg Neutrophils # Seg Neutrophils # Man Lymphocytes # (Manual) Monocytes # (Manual) Eosinophils # (Manual) PT INR Fibrinogen dRVVT Confirm Interp Factor V Activity POC ABG pH POC ABG pCO2 POC ABG pO2 ABG pO2 ABG HCO3 ABG Hemoglobin Oxyhemoglobin Sodium 136 L Potassium Chloride Carbon Dioxide 18 L BUN 121 H Creatinine 2.8 H Glucose 214 H POC Glucose 239 H 181 H Lactic Acid Calcium Phosphorus Magnesium Direct Bilirubin AST ALT Alkaline Phosphatase Lactate Dehydrogenase Troponin T C-Reactive Protein Total Protein Albumin Prealbumin Triglycerides Cholesterol LDL Cholesterol Direct HDL Cholesterol Urine pH Urine WBC (Auto) Urine Creatinine Urine Total Protein Fluid Total Protein Vancomycin Trough Rheumatoid Factor Complement C4 Miscellaneous Test Crossmatch 09/14/16 09/14/16 09/15/16 18:12 23:37 05:00 WBC 26.1 H RBC 3.05 L Hgb 7.2 L Hct 22.9 L MCV 75 L MCH 24 L MCHC RDW 19.0 H Plt Count Lymph % (Auto) [place] % (Auto) Lymph # [place] # Baso # Seg Neutrophils % Seg Neuts % (Manual) Lymphocytes % (Manual) Monocytes % (Manual) Eosinophils % (Manual) Basophils % (Manual) Nucleated RBC % Seg Neutrophils # Seg Neutrophils # Man Lymphocytes # (Manual) Monocytes # (Manual) Eosinophils # (Manual) PT INR Fibrinogen dRVVT Confirm Interp Factor V Activity POC ABG pH POC ABG pCO2 POC ABG pO2 ABG pO2 ABG HCO3 ABG Hemoglobin Oxyhemoglobin Sodium Potassium Chloride Carbon Dioxide BUN Creatinine Glucose POC Glucose 266 H 154 H Lactic Acid Calcium Phosphorus Magnesium Direct Bilirubin AST ALT Alkaline Phosphatase Lactate Dehydrogenase Troponin T C-Reactive Protein Total Protein Albumin Prealbumin Triglycerides Cholesterol LDL Cholesterol Direct HDL Cholesterol Urine pH Urine WBC (Auto) Urine Creatinine Urine Total Protein Fluid Total Protein Vancomycin Trough Rheumatoid Factor Complement C4 Miscellaneous Test Crossmatch 09/15/16 09/15/16 09/15/16 05:00 05:17 12:45 WBC RBC Hgb Hct MCV MCH MCHC RDW Plt Count Lymph % (Auto) [place] % (Auto) Lymph # [place] # Baso # Seg Neutrophils % Seg Neuts % (Manual) Lymphocytes % (Manual) Monocytes % (Manual) Eosinophils % (Manual) Basophils % (Manual) Nucleated RBC % Seg Neutrophils # Seg Neutrophils # Man Lymphocytes # (Manual) Monocytes # (Manual) Eosinophils # (Manual) PT INR Fibrinogen dRVVT Confirm Interp Factor V Activity POC ABG pH POC ABG pCO2 POC ABG pO2 ABG pO2 ABG HCO3 ABG Hemoglobin Oxyhemoglobin Sodium Potassium 5.2 H Chloride Carbon Dioxide 18 L BUN 139 H Creatinine 3.7 H Glucose 227 H POC Glucose 226 H 244 H Lactic Acid Calcium 8.3 L Phosphorus Magnesium Direct Bilirubin AST ALT Alkaline Phosphatase Lactate Dehydrogenase Troponin T C-Reactive Protein Total Protein Albumin Prealbumin Triglycerides Cholesterol LDL Cholesterol Direct HDL Cholesterol Urine pH Urine WBC (Auto) Urine Creatinine Urine Total Protein Fluid Total Protein Vancomycin Trough Rheumatoid Factor Complement C4 Miscellaneous Test Crossmatch 09/15/16 09/15/16 09/15/16 14:32 17:33 23:35 WBC RBC Hgb Hct MCV MCH MCHC RDW Plt Count Lymph % (Auto) [place] % (Auto) Lymph # [place] # Baso # Seg Neutrophils % Seg Neuts % (Manual) Lymphocytes % (Manual) Monocytes % (Manual) Eosinophils % (Manual) Basophils % (Manual) Nucleated RBC % Seg Neutrophils # Seg Neutrophils # Man Lymphocytes # (Manual) Monocytes # (Manual) Eosinophils # (Manual) PT INR Fibrinogen dRVVT Confirm Interp Factor V Activity POC ABG pH POC ABG pCO2 27.7 L POC ABG pO2 120 H ABG pO2 ABG HCO3 ABG Hemoglobin Oxyhemoglobin Sodium Potassium Chloride Carbon Dioxide BUN Creatinine Glucose POC Glucose 232 H 167 H Lactic Acid Calcium Phosphorus Magnesium Direct Bilirubin AST ALT Alkaline Phosphatase Lactate Dehydrogenase Troponin T C-Reactive Protein Total Protein Albumin Prealbumin Triglycerides Cholesterol LDL Cholesterol Direct HDL Cholesterol Urine pH Urine WBC (Auto) Urine Creatinine Urine Total Protein Fluid Total Protein Vancomycin Trough Rheumatoid Factor Complement C4 Miscellaneous Test Crossmatch 09/16/16 09/16/16 09/16/16 03:58 10:27 10:27 WBC 19.0 H RBC 2.77 L Hgb 6.5 L Hct 20.9 L MCV 76 L MCH 23 L MCHC RDW 19.3 H Plt Count Lymph % (Auto) 11.0 L [place] % (Auto) Lymph # [place] # 1.1 H Baso # Seg Neutrophils % 82.5 H Seg Neuts % (Manual) Lymphocytes % (Manual) Monocytes % (Manual) Eosinophils % (Manual) Basophils % (Manual) Nucleated RBC % Seg Neutrophils # 15.7 H Seg Neutrophils # Man Lymphocytes # (Manual) Monocytes # (Manual) Eosinophils # (Manual) PT INR Fibrinogen dRVVT Confirm Interp Factor V Activity POC ABG pH POC ABG pCO2 POC ABG pO2 ABG pO2 ABG HCO3 ABG Hemoglobin Oxyhemoglobin Sodium Potassium Chloride 109.3 H Carbon Dioxide 18 L BUN 139 H Creatinine 4.1 H Glucose 144 H POC Glucose 146 H Lactic Acid Calcium 8.1 L Phosphorus Magnesium Direct Bilirubin AST ALT Alkaline Phosphatase Lactate Dehydrogenase Troponin T C-Reactive Protein Total Protein Albumin Prealbumin Triglycerides Cholesterol LDL Cholesterol Direct HDL Cholesterol Urine pH Urine WBC (Auto) Urine Creatinine Urine Total Protein Fluid Total Protein Vancomycin Trough Rheumatoid Factor Complement C4 Miscellaneous Test Crossmatch 09/16/16 09/16/16 09/16/16 12:04 12:10 13:55 WBC RBC Hgb Hct MCV MCH MCHC RDW Plt Count Lymph % (Auto) [place] % (Auto) Lymph # [place] # Baso # Seg Neutrophils % Seg Neuts % (Manual) Lymphocytes % (Manual) Monocytes % (Manual) Eosinophils % (Manual) Basophils % (Manual) Nucleated RBC % Seg Neutrophils # Seg Neutrophils # Man Lymphocytes # (Manual) Monocytes # (Manual) Eosinophils # (Manual) PT INR Fibrinogen dRVVT Confirm Interp Factor V Activity POC ABG pH POC ABG pCO2 32.9 L POC ABG pO2 ABG pO2 ABG HCO3 ABG Hemoglobin Oxyhemoglobin Sodium Potassium Chloride Carbon Dioxide BUN Creatinine Glucose POC Glucose 185 H Lactic Acid Calcium Phosphorus Magnesium Direct Bilirubin AST ALT Alkaline Phosphatase Lactate Dehydrogenase Troponin T C-Reactive Protein Total Protein Albumin Prealbumin Triglycerides Cholesterol LDL Cholesterol Direct HDL Cholesterol Urine pH Urine WBC (Auto) Urine Creatinine Urine Total Protein Fluid Total Protein Vancomycin Trough Rheumatoid Factor Complement C4 Miscellaneous Test Crossmatch See Detail 09/16/16 09/16/16 09/16/16 17:55 19:19 23:48 WBC RBC Hgb Hct MCV MCH MCHC RDW Plt Count Lymph % (Auto) [place] % (Auto) Lymph # [place] # Baso # Seg Neutrophils % Seg Neuts % (Manual) Lymphocytes % (Manual) Monocytes % (Manual) Eosinophils % (Manual) Basophils % (Manual) Nucleated RBC % Seg Neutrophils # Seg Neutrophils # Man Lymphocytes # (Manual) Monocytes # (Manual) Eosinophils # (Manual) PT INR Fibrinogen dRVVT Confirm Interp Factor V Activity POC ABG pH POC ABG pCO2 POC ABG pO2 ABG pO2 ABG HCO3 ABG Hemoglobin Oxyhemoglobin Sodium Potassium Chloride Carbon Dioxide BUN Creatinine Glucose POC Glucose 222 H 107 H Lactic Acid Calcium Phosphorus Magnesium Direct Bilirubin AST ALT Alkaline Phosphatase Lactate Dehydrogenase Troponin T C-Reactive Protein Total Protein Albumin Prealbumin Triglycerides Cholesterol LDL Cholesterol Direct HDL Cholesterol Urine pH Urine WBC (Auto) Urine Creatinine 47.4 H Urine Total Protein 16 H Fluid Total Protein Vancomycin Trough Rheumatoid Factor Complement C4 Miscellaneous Test Crossmatch 09/17/16 09/17/16 09/17/16 03:45 03:45 04:55 WBC 19.6 H RBC 3.41 L Hgb 8.5 L Hct 26.7 L MCV 78 L MCH 25 L MCHC RDW 19.9 H Plt Count Lymph % (Auto) 9.3 L [place] % (Auto) Lymph # [place] # 1.2 H Baso # Seg Neutrophils % 83.9 H Seg Neuts % (Manual) Lymphocytes % (Manual) Monocytes % (Manual) Eosinophils % (Manual) Basophils % (Manual) Nucleated RBC % Seg Neutrophils # 16.4 H Seg Neutrophils # Man Lymphocytes # (Manual) Monocytes # (Manual) Eosinophils # (Manual) PT INR Fibrinogen dRVVT Confirm Interp Factor V Activity POC ABG pH POC ABG pCO2 POC ABG pO2 ABG pO2 ABG HCO3 ABG Hemoglobin Oxyhemoglobin Sodium 146 H Potassium 5.1 H Chloride 110.9 H Carbon Dioxide 16 L BUN 146 H Creatinine 4.0 H Glucose 108 H POC Glucose 133 H Lactic Acid Calcium Phosphorus Magnesium 3.00 H Direct Bilirubin AST ALT Alkaline Phosphatase Lactate Dehydrogenase Troponin T C-Reactive Protein Total Protein Albumin Prealbumin Triglycerides Cholesterol LDL Cholesterol Direct HDL Cholesterol Urine pH Urine WBC (Auto) Urine Creatinine Urine Total Protein Fluid Total Protein Vancomycin Trough Rheumatoid Factor Complement C4 Miscellaneous Test Crossmatch 09/17/16 09/17/16 09/17/16 11:15 17:33 23:47 WBC RBC Hgb Hct MCV MCH MCHC RDW Plt Count Lymph % (Auto) [place] % (Auto) Lymph # [place] # Baso # Seg Neutrophils % Seg Neuts % (Manual) Lymphocytes % (Manual) Monocytes % (Manual) Eosinophils % (Manual) Basophils % (Manual) Nucleated RBC % Seg Neutrophils # Seg Neutrophils # Man Lymphocytes # (Manual) Monocytes # (Manual) Eosinophils # (Manual) PT INR Fibrinogen dRVVT Confirm Interp Factor V Activity POC ABG pH POC ABG pCO2 POC ABG pO2 ABG pO2 ABG HCO3 ABG Hemoglobin Oxyhemoglobin Sodium Potassium Chloride Carbon Dioxide BUN Creatinine Glucose POC Glucose 176 H 246 H 148 H Lactic Acid Calcium Phosphorus Magnesium Direct Bilirubin AST ALT Alkaline Phosphatase Lactate Dehydrogenase Troponin T C-Reactive Protein Total Protein Albumin Prealbumin Triglycerides Cholesterol LDL Cholesterol Direct HDL Cholesterol Urine pH Urine WBC (Auto) Urine Creatinine Urine Total Protein Fluid Total Protein Vancomycin Trough Rheumatoid Factor Complement C4 Miscellaneous Test Crossmatch 09/18/16 09/18/16 09/18/16 05:33 08:31 08:31 WBC 18.0 H RBC 3.17 L Hgb 9.0 L Hct 25.7 L MCV MCH MCHC 35 H RDW 20.4 H Plt Count Lymph % (Auto) [place] % (Auto) Lymph # [place] # Baso # Seg Neutrophils % Seg Neuts % (Manual) Lymphocytes % (Manual) Monocytes % (Manual) Eosinophils % (Manual) Basophils % (Manual) Nucleated RBC % Seg Neutrophils # Seg Neutrophils # Man Lymphocytes # (Manual) Monocytes # (Manual) Eosinophils # (Manual) PT INR Fibrinogen dRVVT Confirm Interp Factor V Activity POC ABG pH POC ABG pCO2 POC ABG pO2 ABG pO2 ABG HCO3 ABG Hemoglobin Oxyhemoglobin Sodium Potassium Chloride Carbon Dioxide 15 L BUN 124 H Creatinine 3.8 H Glucose POC Glucose 120 H Lactic Acid Calcium 8.1 L Phosphorus Magnesium Direct Bilirubin AST ALT Alkaline Phosphatase Lactate Dehydrogenase Troponin T C-Reactive Protein Total Protein Albumin Prealbumin Triglycerides Cholesterol LDL Cholesterol Direct HDL Cholesterol Urine pH Urine WBC (Auto) Urine Creatinine Urine Total Protein Fluid Total Protein Vancomycin Trough Rheumatoid Factor Complement C4 Miscellaneous Test Crossmatch 09/18/16 09/18/16 09/18/16 12:03 15:34 17:50 WBC RBC Hgb Hct MCV MCH MCHC RDW Plt Count Lymph % (Auto) [place] % (Auto) Lymph # [place] # Baso # Seg Neutrophils % Seg Neuts % (Manual) Lymphocytes % (Manual) Monocytes % (Manual) Eosinophils % (Manual) Basophils % (Manual) Nucleated RBC % Seg Neutrophils # Seg Neutrophils # Man Lymphocytes # (Manual) Monocytes # (Manual) Eosinophils # (Manual) PT INR Fibrinogen dRVVT Confirm Interp Factor V Activity POC ABG pH POC ABG pCO2 25.7 L POC ABG pO2 66 L ABG pO2 ABG HCO3 ABG Hemoglobin Oxyhemoglobin Sodium Potassium Chloride Carbon Dioxide BUN Creatinine Glucose POC Glucose 156 H 220 H Lactic Acid Calcium Phosphorus Magnesium Direct Bilirubin AST ALT Alkaline Phosphatase Lactate Dehydrogenase Troponin T C-Reactive Protein Total Protein Albumin Prealbumin Triglycerides Cholesterol LDL Cholesterol Direct HDL Cholesterol Urine pH Urine WBC (Auto) Urine Creatinine Urine Total Protein Fluid Total Protein Vancomycin Trough Rheumatoid Factor Complement C4 Miscellaneous Test Crossmatch 09/19/16 09/19/16 09/19/16 06:21 09:50 09:50 WBC 17.1 H RBC 3.49 L Hgb 9.0 L Hct 28.1 L MCV MCH 26 L MCHC RDW 20.8 H Plt Count Lymph % (Auto) 11.5 L [place] % (Auto) 7.5 H Lymph # [place] # 1.3 H Baso # Seg Neutrophils % 79.8 H Seg Neuts % (Manual) Lymphocytes % (Manual) Monocytes % (Manual) Eosinophils % (Manual) Basophils % (Manual) Nucleated RBC % Seg Neutrophils # 13.7 H Seg Neutrophils # Man Lymphocytes # (Manual) Monocytes # (Manual) Eosinophils # (Manual) PT INR Fibrinogen dRVVT Confirm Interp Factor V Activity POC ABG pH POC ABG pCO2 POC ABG pO2 ABG pO2 ABG HCO3 ABG Hemoglobin Oxyhemoglobin Sodium Potassium Chloride 108.6 H Carbon Dioxide 15 L BUN 125 H Creatinine 4.1 H Glucose 124 H POC Glucose 119 H Lactic Acid Calcium Phosphorus Magnesium Direct Bilirubin AST ALT Alkaline Phosphatase Lactate Dehydrogenase Troponin T C-Reactive Protein Total Protein Albumin Prealbumin Triglycerides Cholesterol LDL Cholesterol Direct HDL Cholesterol Urine pH Urine WBC (Auto) Urine Creatinine Urine Total Protein Fluid Total Protein Vancomycin Trough Rheumatoid Factor Complement C4 Miscellaneous Test Crossmatch 09/19/16 09/19/16 09/19/16 11:25 17:53 23:36 WBC RBC Hgb Hct MCV MCH MCHC RDW Plt Count Lymph % (Auto) [place] % (Auto) Lymph # [place] # Baso # Seg Neutrophils % Seg Neuts % (Manual) Lymphocytes % (Manual) Monocytes % (Manual) Eosinophils % (Manual) Basophils % (Manual) Nucleated RBC % Seg Neutrophils # Seg Neutrophils # Man Lymphocytes # (Manual) Monocytes # (Manual) Eosinophils # (Manual) PT INR Fibrinogen dRVVT Confirm Interp Factor V Activity POC ABG pH POC ABG pCO2 POC ABG pO2 ABG pO2 ABG HCO3 ABG Hemoglobin Oxyhemoglobin Sodium Potassium Chloride Carbon Dioxide BUN Creatinine Glucose POC Glucose 160 H 245 H 121 H Lactic Acid Calcium Phosphorus Magnesium Direct Bilirubin AST ALT Alkaline Phosphatase Lactate Dehydrogenase Troponin T C-Reactive Protein Total Protein Albumin Prealbumin Triglycerides Cholesterol LDL Cholesterol Direct HDL Cholesterol Urine pH Urine WBC (Auto) Urine Creatinine Urine Total Protein Fluid Total Protein Vancomycin Trough Rheumatoid Factor Complement C4 Miscellaneous Test Crossmatch 09/20/16 09/20/16 09/20/16 04:10 04:10 04:10 WBC 17.0 H RBC 3.21 L Hgb 8.2 L Hct 25.5 L MCV MCH 26 L MCHC RDW 20.9 H Plt Count Lymph % (Auto) [place] % (Auto) Lymph # [place] # Baso # Seg Neutrophils % Seg Neuts % (Manual) Lymphocytes % (Manual) Monocytes % (Manual) Eosinophils % (Manual) Basophils % (Manual) Nucleated RBC % Seg Neutrophils # Seg Neutrophils # Man Lymphocytes # (Manual) Monocytes # (Manual) Eosinophils # (Manual) PT INR Fibrinogen dRVVT Confirm Interp Factor V Activity POC ABG pH POC ABG pCO2 POC ABG pO2 ABG pO2 ABG HCO3 ABG Hemoglobin Oxyhemoglobin Sodium Potassium Chloride 111.0 H Carbon Dioxide 16 L BUN 129 H Creatinine 3.7 H Glucose 115 H POC Glucose Lactic Acid Calcium 8.2 L Phosphorus Magnesium Direct Bilirubin AST ALT Alkaline Phosphatase Lactate Dehydrogenase Troponin T C-Reactive Protein Total Protein Albumin Prealbumin Triglycerides 243 H Cholesterol LDL Cholesterol Direct HDL Cholesterol Urine pH Urine WBC (Auto) Urine Creatinine Urine Total Protein Fluid Total Protein Vancomycin Trough Rheumatoid Factor Complement C4 Miscellaneous Test Crossmatch 09/20/16 09/20/16 09/20/16 05:40 11:52 16:50 WBC RBC Hgb Hct MCV MCH MCHC RDW Plt Count Lymph % (Auto) [place] % (Auto) Lymph # [place] # Baso # Seg Neutrophils % Seg Neuts % (Manual) Lymphocytes % (Manual) Monocytes % (Manual) Eosinophils % (Manual) Basophils % (Manual) Nucleated RBC % Seg Neutrophils # Seg Neutrophils # Man Lymphocytes # (Manual) Monocytes # (Manual) Eosinophils # (Manual) PT INR Fibrinogen dRVVT Confirm Interp Factor V Activity POC ABG pH POC ABG pCO2 POC ABG pO2 ABG pO2 ABG HCO3 ABG Hemoglobin Oxyhemoglobin Sodium Potassium Chloride Carbon Dioxide BUN Creatinine Glucose POC Glucose 131 H 183 H 236 H Lactic Acid Calcium Phosphorus Magnesium Direct Bilirubin AST ALT Alkaline Phosphatase Lactate Dehydrogenase Troponin T C-Reactive Protein Total Protein Albumin Prealbumin Triglycerides Cholesterol LDL Cholesterol Direct HDL Cholesterol Urine pH Urine WBC (Auto) Urine Creatinine Urine Total Protein Fluid Total Protein Vancomycin Trough Rheumatoid Factor Complement C4 Miscellaneous Test Crossmatch 09/20/16 09/21/16 09/21/16 23:51 03:30 04:44 WBC RBC Hgb Hct MCV MCH MCHC RDW Plt Count Lymph % (Auto) [place] % (Auto) Lymph # [place] # Baso # Seg Neutrophils % Seg Neuts % (Manual) Lymphocytes % (Manual) Monocytes % (Manual) Eosinophils % (Manual) Basophils % (Manual) Nucleated RBC % Seg Neutrophils # Seg Neutrophils # Man Lymphocytes # (Manual) Monocytes # (Manual) Eosinophils # (Manual) PT INR Fibrinogen dRVVT Confirm Interp Factor V Activity POC ABG pH POC ABG pCO2 POC ABG pO2 ABG pO2 ABG HCO3 ABG Hemoglobin Oxyhemoglobin Sodium Potassium Chloride Carbon Dioxide BUN Creatinine Glucose POC Glucose 114 H 141 H Lactic Acid Calcium Phosphorus Magnesium 2.70 H Direct Bilirubin AST ALT Alkaline Phosphatase Lactate Dehydrogenase Troponin T C-Reactive Protein Total Protein Albumin Prealbumin Triglycerides Cholesterol LDL Cholesterol Direct HDL Cholesterol Urine pH Urine WBC (Auto) Urine Creatinine Urine Total Protein Fluid Total Protein Vancomycin Trough Rheumatoid Factor Complement C4 Miscellaneous Test Crossmatch 09/21/16 09/21/16 09/21/16 07:45 07:45 10:01 WBC 13.8 H RBC 2.94 L Hgb 7.5 L Hct 23.5 L MCV MCH 26 L MCHC RDW 21.2 H Plt Count Lymph % (Auto) 6.9 L [place] % (Auto) 9.4 H Lymph # 0.9 L [place] # 1.3 H Baso # Seg Neutrophils % 83.2 H Seg Neuts % (Manual) Lymphocytes % (Manual) Monocytes % (Manual) Eosinophils % (Manual) Basophils % (Manual) Nucleated RBC % Seg Neutrophils # 11.5 H Seg Neutrophils # Man Lymphocytes # (Manual) Monocytes # (Manual) Eosinophils # (Manual) PT INR Fibrinogen dRVVT Confirm Interp Factor V Activity POC ABG pH 7.308 L POC ABG pCO2 31.9 L POC ABG pO2 148 H ABG pO2 ABG HCO3 ABG Hemoglobin Oxyhemoglobin Sodium 147 H Potassium Chloride 114.2 H Carbon Dioxide 15 L BUN 120 H Creatinine 3.9 H Glucose 156 H POC Glucose Lactic Acid Calcium 8.2 L Phosphorus Magnesium Direct Bilirubin AST ALT Alkaline Phosphatase Lactate Dehydrogenase Troponin T C-Reactive Protein Total Protein Albumin Prealbumin Triglycerides Cholesterol LDL Cholesterol Direct HDL Cholesterol Urine pH Urine WBC (Auto) Urine Creatinine Urine Total Protein Fluid Total Protein Vancomycin Trough Rheumatoid Factor Complement C4 Miscellaneous Test Crossmatch 09/21/16 09/21/16 09/21/16 12:00 12:03 13:00 WBC RBC Hgb Hct MCV MCH MCHC RDW Plt Count Lymph % (Auto) [place] % (Auto) Lymph # [place] # Baso # Seg Neutrophils % Seg Neuts % (Manual) Lymphocytes % (Manual) Monocytes % (Manual) Eosinophils % (Manual) Basophils % (Manual) Nucleated RBC % Seg Neutrophils # Seg Neutrophils # Man Lymphocytes # (Manual) Monocytes # (Manual) Eosinophils # (Manual) PT INR Fibrinogen dRVVT Confirm Interp Factor V Activity POC ABG pH POC ABG pCO2 POC ABG pO2 ABG pO2 ABG HCO3 ABG Hemoglobin Oxyhemoglobin Sodium Potassium Chloride Carbon Dioxide BUN Creatinine Glucose POC Glucose 163 H Lactic Acid Calcium Phosphorus Magnesium Direct Bilirubin AST ALT Alkaline Phosphatase Lactate Dehydrogenase Troponin T C-Reactive Protein Total Protein Albumin Prealbumin Triglycerides Cholesterol LDL Cholesterol Direct HDL Cholesterol Urine pH Urine WBC (Auto) Urine Creatinine 54.8 H Urine Total Protein Fluid Total Protein Vancomycin Trough 2.3 L Rheumatoid Factor Complement C4 Miscellaneous Test Crossmatch 09/21/16 09/21/16 09/22/16 16:51 23:17 06:27 WBC RBC Hgb Hct MCV MCH MCHC RDW Plt Count Lymph % (Auto) [place] % (Auto) Lymph # [place] # Baso # Seg Neutrophils % Seg Neuts % (Manual) Lymphocytes % (Manual) Monocytes % (Manual) Eosinophils % (Manual) Basophils % (Manual) Nucleated RBC % Seg Neutrophils # Seg Neutrophils # Man Lymphocytes # (Manual) Monocytes # (Manual) Eosinophils # (Manual) PT INR Fibrinogen dRVVT Confirm Interp Factor V Activity POC ABG pH POC ABG pCO2 POC ABG pO2 ABG pO2 ABG HCO3 ABG Hemoglobin Oxyhemoglobin Sodium Potassium Chloride Carbon Dioxide BUN Creatinine Glucose POC Glucose 206 H 114 H 115 H Lactic Acid Calcium Phosphorus Magnesium Direct Bilirubin AST ALT Alkaline Phosphatase Lactate Dehydrogenase Troponin T C-Reactive Protein Total Protein Albumin Prealbumin Triglycerides Cholesterol LDL Cholesterol Direct HDL Cholesterol Urine pH Urine WBC (Auto) Urine Creatinine Urine Total Protein Fluid Total Protein Vancomycin Trough Rheumatoid Factor Complement C4 Miscellaneous Test Crossmatch 09/22/16 09/22/16 09/22/16 07:50 07:50 12:00 WBC 17.8 H RBC 3.04 L Hgb 8.0 L Hct 24.7 L MCV MCH 26 L MCHC RDW 21.6 H Plt Count Lymph % (Auto) [place] % (Auto) Lymph # [place] # Baso # Seg Neutrophils % Seg Neuts % (Manual) Lymphocytes % (Manual) Monocytes % (Manual) Eosinophils % (Manual) Basophils % (Manual) Nucleated RBC % Seg Neutrophils # Seg Neutrophils # Man Lymphocytes # (Manual) Monocytes # (Manual) Eosinophils # (Manual) PT INR Fibrinogen dRVVT Confirm Interp Factor V Activity POC ABG pH POC ABG pCO2 POC ABG pO2 ABG pO2 ABG HCO3 ABG Hemoglobin Oxyhemoglobin Sodium 150 H Potassium Chloride 118.2 H Carbon Dioxide 14 L BUN 111 H Creatinine 3.7 H Glucose 157 H POC Glucose 183 H Lactic Acid Calcium Phosphorus Magnesium Direct Bilirubin AST ALT Alkaline Phosphatase Lactate Dehydrogenase Troponin T C-Reactive Protein Total Protein Albumin Prealbumin Triglycerides Cholesterol LDL Cholesterol Direct HDL Cholesterol Urine pH Urine WBC (Auto) Urine Creatinine Urine Total Protein Fluid Total Protein Vancomycin Trough Rheumatoid Factor Complement C4 Miscellaneous Test Crossmatch 09/22/16 09/22/16 09/23/16 17:29 23:10 05:00 WBC 19.2 H RBC 3.13 L Hgb 8.0 L Hct 25.2 L MCV MCH 26 L MCHC RDW 22.1 H Plt Count Lymph % (Auto) [place] % (Auto) Lymph # [place] # Baso # Seg Neutrophils % Seg Neuts % (Manual) 92.0 H Lymphocytes % (Manual) 3.0 L Monocytes % (Manual) Eosinophils % (Manual) Basophils % (Manual) Nucleated RBC % Seg Neutrophils # Seg Neutrophils # Man 17.7 H Lymphocytes # (Manual) 0.6 L Monocytes # (Manual) Eosinophils # (Manual) PT INR Fibrinogen dRVVT Confirm Interp Factor V Activity POC ABG pH POC ABG pCO2 POC ABG pO2 ABG pO2 ABG HCO3 ABG Hemoglobin Oxyhemoglobin Sodium Potassium Chloride Carbon Dioxide BUN Creatinine Glucose POC Glucose 197 H 169 H Lactic Acid Calcium Phosphorus Magnesium Direct Bilirubin AST ALT Alkaline Phosphatase Lactate Dehydrogenase Troponin T C-Reactive Protein Total Protein Albumin Prealbumin Triglycerides Cholesterol LDL Cholesterol Direct HDL Cholesterol Urine pH Urine WBC (Auto) Urine Creatinine Urine Total Protein Fluid Total Protein Vancomycin Trough Rheumatoid Factor Complement C4 Miscellaneous Test Crossmatch 09/23/16 09/23/16 09/23/16 05:00 05:00 05:10 WBC RBC Hgb Hct MCV MCH MCHC RDW Plt Count Lymph % (Auto) [place] % (Auto) Lymph # [place] # Baso # Seg Neutrophils % Seg Neuts % (Manual) Lymphocytes % (Manual) Monocytes % (Manual) Eosinophils % (Manual) Basophils % (Manual) Nucleated RBC % Seg Neutrophils # Seg Neutrophils # Man Lymphocytes # (Manual) Monocytes # (Manual) Eosinophils # (Manual) PT INR Fibrinogen dRVVT Confirm Interp Factor V Activity POC ABG pH POC ABG pCO2 POC ABG pO2 ABG pO2 ABG HCO3 ABG Hemoglobin Oxyhemoglobin Sodium 147 H Potassium 3.2 L Chloride 115.7 H Carbon Dioxide 13 L BUN 111 H Creatinine 3.8 H Glucose 194 H POC Glucose 188 H Lactic Acid Calcium 7.3 L D Phosphorus Magnesium Direct Bilirubin AST ALT Alkaline Phosphatase Lactate Dehydrogenase Troponin T C-Reactive Protein 3.20 H Total Protein Albumin Prealbumin Triglycerides Cholesterol LDL Cholesterol Direct HDL Cholesterol Urine pH Urine WBC (Auto) Urine Creatinine Urine Total Protein Fluid Total Protein Vancomycin Trough Rheumatoid Factor Complement C4 Miscellaneous Test Crossmatch 09/23/16 09/23/16 09/23/16 11:37 12:29 18:01 WBC RBC Hgb Hct MCV MCH MCHC RDW Plt Count Lymph % (Auto) [place] % (Auto) Lymph # [place] # Baso # Seg Neutrophils % Seg Neuts % (Manual) Lymphocytes % (Manual) Monocytes % (Manual) Eosinophils % (Manual) Basophils % (Manual) Nucleated RBC % Seg Neutrophils # Seg Neutrophils # Man Lymphocytes # (Manual) Monocytes # (Manual) Eosinophils # (Manual) PT INR Fibrinogen dRVVT Confirm Interp Factor V Activity POC ABG pH POC ABG pCO2 18.9 L POC ABG pO2 143 H ABG pO2 ABG HCO3 ABG Hemoglobin Oxyhemoglobin Sodium Potassium Chloride Carbon Dioxide BUN Creatinine Glucose POC Glucose 153 H 108 H Lactic Acid Calcium Phosphorus Magnesium Direct Bilirubin AST ALT Alkaline Phosphatase Lactate Dehydrogenase Troponin T C-Reactive Protein Total Protein Albumin Prealbumin Triglycerides Cholesterol LDL Cholesterol Direct HDL Cholesterol Urine pH Urine WBC (Auto) Urine Creatinine Urine Total Protein Fluid Total Protein Vancomycin Trough Rheumatoid Factor Complement C4 Miscellaneous Test Crossmatch 09/23/16 09/23/16 09/24/16 21:19 23:43 05:16 WBC RBC Hgb Hct MCV MCH MCHC RDW Plt Count Lymph % (Auto) [place] % (Auto) Lymph # [place] # Baso # Seg Neutrophils % Seg Neuts % (Manual) Lymphocytes % (Manual) Monocytes % (Manual) Eosinophils % (Manual) Basophils % (Manual) Nucleated RBC % Seg Neutrophils # Seg Neutrophils # Man Lymphocytes # (Manual) Monocytes # (Manual) Eosinophils # (Manual) PT INR Fibrinogen dRVVT Confirm Interp Factor V Activity POC ABG pH POC ABG pCO2 17.3 L POC ABG pO2 112 H ABG pO2 ABG HCO3 ABG Hemoglobin Oxyhemoglobin Sodium Potassium Chloride Carbon Dioxide BUN Creatinine Glucose POC Glucose 143 H 164 H Lactic Acid Calcium Phosphorus Magnesium Direct Bilirubin AST ALT Alkaline Phosphatase Lactate Dehydrogenase Troponin T C-Reactive Protein Total Protein Albumin Prealbumin Triglycerides Cholesterol LDL Cholesterol Direct HDL Cholesterol Urine pH Urine WBC (Auto) Urine Creatinine Urine Total Protein Fluid Total Protein Vancomycin Trough Rheumatoid Factor Complement C4 Miscellaneous Test Crossmatch 09/24/16 09/24/16 09/24/16 05:21 11:58 17:06 WBC RBC Hgb Hct MCV MCH MCHC RDW Plt Count Lymph % (Auto) [place] % (Auto) Lymph # [place] # Baso # Seg Neutrophils % Seg Neuts % (Manual) Lymphocytes % (Manual) Monocytes % (Manual) Eosinophils % (Manual) Basophils % (Manual) Nucleated RBC % Seg Neutrophils # Seg Neutrophils # Man Lymphocytes # (Manual) Monocytes # (Manual) Eosinophils # (Manual) PT INR Fibrinogen dRVVT Confirm Interp Factor V Activity POC ABG pH POC ABG pCO2 POC ABG pO2 ABG pO2 ABG HCO3 ABG Hemoglobin Oxyhemoglobin Sodium Potassium Chloride Carbon Dioxide 10 L BUN 103 H Creatinine 4.3 H Glucose 163 H POC Glucose 173 H 167 H Lactic Acid Calcium 6.5 L Phosphorus Magnesium Direct Bilirubin AST ALT Alkaline Phosphatase Lactate Dehydrogenase Troponin T C-Reactive Protein Total Protein Albumin Prealbumin Triglycerides Cholesterol LDL Cholesterol Direct HDL Cholesterol Urine pH Urine WBC (Auto) Urine Creatinine Urine Total Protein Fluid Total Protein Vancomycin Trough Rheumatoid Factor Complement C4 Miscellaneous Test Crossmatch 09/24/16 09/24/16 09/24/16 20:15 21:02 23:48 WBC RBC Hgb Hct MCV MCH MCHC RDW Plt Count Lymph % (Auto) [place] % (Auto) Lymph # [place] # Baso # Seg Neutrophils % Seg Neuts % (Manual) Lymphocytes % (Manual) Monocytes % (Manual) Eosinophils % (Manual) Basophils % (Manual) Nucleated RBC % Seg Neutrophils # Seg Neutrophils # Man Lymphocytes # (Manual) Monocytes # (Manual) Eosinophils # (Manual) PT INR Fibrinogen dRVVT Confirm Interp Factor V Activity POC ABG pH 7.288 L POC ABG pCO2 30.2 L 21.5 L POC ABG pO2 32 L 39 L ABG pO2 ABG HCO3 ABG Hemoglobin Oxyhemoglobin Sodium Potassium Chloride Carbon Dioxide BUN Creatinine Glucose POC Glucose 109 H Lactic Acid Calcium Phosphorus Magnesium Direct Bilirubin AST ALT Alkaline Phosphatase Lactate Dehydrogenase Troponin T C-Reactive Protein Total Protein Albumin Prealbumin Triglycerides Cholesterol LDL Cholesterol Direct HDL Cholesterol Urine pH Urine WBC (Auto) Urine Creatinine Urine Total Protein Fluid Total Protein Vancomycin Trough Rheumatoid Factor Complement C4 Miscellaneous Test Crossmatch 09/25/16 09/25/16 09/25/16 04:20 04:20 04:20 WBC RBC 2.58 L Hgb 7.0 L Hct 21.0 L MCV MCH 27 L MCHC RDW 23.8 H Plt Count Lymph % (Auto) [place] % (Auto) Lymph # [place] # Baso # Seg Neutrophils % Seg Neuts % (Manual) Lymphocytes % (Manual) 12.0 L Monocytes % (Manual) Eosinophils % (Manual) 7.0 H Basophils % (Manual) 2.0 H Nucleated RBC % Seg Neutrophils # Seg Neutrophils # Man Lymphocytes # (Manual) 0.9 L Monocytes # (Manual) Eosinophils # (Manual) 0.5 H PT INR Fibrinogen dRVVT Confirm Interp Factor V Activity POC ABG pH POC ABG pCO2 POC ABG pO2 ABG pO2 ABG HCO3 ABG Hemoglobin Oxyhemoglobin Sodium Potassium Chloride Carbon Dioxide 15 L BUN 72 H Creatinine 3.8 H Glucose POC Glucose Lactic Acid Calcium 6.0 L Phosphorus 4.60 H Magnesium 1.60 L Direct Bilirubin AST ALT Alkaline Phosphatase Lactate Dehydrogenase Troponin T C-Reactive Protein Total Protein Albumin Prealbumin Triglycerides Cholesterol LDL Cholesterol Direct HDL Cholesterol Urine pH Urine WBC (Auto) Urine Creatinine Urine Total Protein Fluid Total Protein Vancomycin Trough Rheumatoid Factor Complement C4 Miscellaneous Test Crossmatch 09/25/16 09/25/16 09/25/16 04:57 08:02 10:30 WBC RBC Hgb Hct MCV MCH MCHC RDW Plt Count Lymph % (Auto) [place] % (Auto) Lymph # [place] # Baso # Seg Neutrophils % Seg Neuts % (Manual) Lymphocytes % (Manual) Monocytes % (Manual) Eosinophils % (Manual) Basophils % (Manual) Nucleated RBC % Seg Neutrophils # Seg Neutrophils # Man Lymphocytes # (Manual) Monocytes # (Manual) Eosinophils # (Manual) PT INR Fibrinogen dRVVT Confirm Interp Factor V Activity POC ABG pH POC ABG pCO2 24.7 L POC ABG pO2 152 H ABG pO2 ABG HCO3 ABG Hemoglobin Oxyhemoglobin Sodium Potassium Chloride Carbon Dioxide BUN Creatinine Glucose POC Glucose 113 H Lactic Acid Calcium Phosphorus Magnesium Direct Bilirubin AST ALT Alkaline Phosphatase Lactate Dehydrogenase Troponin T C-Reactive Protein Total Protein Albumin Prealbumin Triglycerides Cholesterol LDL Cholesterol Direct HDL Cholesterol Urine pH Urine WBC (Auto) Urine Creatinine Urine Total Protein Fluid Total Protein Vancomycin Trough Rheumatoid Factor Complement C4 Miscellaneous Test Crossmatch See Detail 09/25/16 09/25/16 09/25/16 12:05 17:44 23:47 WBC RBC Hgb Hct MCV MCH MCHC RDW Plt Count Lymph % (Auto) [place] % (Auto) Lymph # [place] # Baso # Seg Neutrophils % Seg Neuts % (Manual) Lymphocytes % (Manual) Monocytes % (Manual) Eosinophils % (Manual) Basophils % (Manual) Nucleated RBC % Seg Neutrophils # Seg Neutrophils # Man Lymphocytes # (Manual) Monocytes # (Manual) Eosinophils # (Manual) PT INR Fibrinogen dRVVT Confirm Interp Factor V Activity POC ABG pH POC ABG pCO2 POC ABG pO2 ABG pO2 ABG HCO3 ABG Hemoglobin Oxyhemoglobin Sodium Potassium Chloride Carbon Dioxide BUN Creatinine Glucose POC Glucose 117 H 119 H 150 H Lactic Acid Calcium Phosphorus Magnesium Direct Bilirubin AST ALT Alkaline Phosphatase Lactate Dehydrogenase Troponin T C-Reactive Protein Total Protein Albumin Prealbumin Triglycerides Cholesterol LDL Cholesterol Direct HDL Cholesterol Urine pH Urine WBC (Auto) Urine Creatinine Urine Total Protein Fluid Total Protein Vancomycin Trough Rheumatoid Factor Complement C4 Miscellaneous Test Crossmatch 09/26/16 09/26/16 09/26/16 04:25 04:25 04:25 WBC RBC 2.65 L Hgb 7.4 L Hct 21.6 L MCV MCH MCHC RDW 22.5 H Plt Count Lymph % (Auto) [place] % (Auto) Lymph # [place] # Baso # Seg Neutrophils % Seg Neuts % (Manual) Lymphocytes % (Manual) 6.0 L Monocytes % (Manual) Eosinophils % (Manual) 11.0 H Basophils % (Manual) Nucleated RBC % Seg Neutrophils # Seg Neutrophils # Man Lymphocytes # (Manual) 0.4 L Monocytes # (Manual) Eosinophils # (Manual) 0.6 H PT INR Fibrinogen dRVVT Confirm Interp Factor V Activity POC ABG pH POC ABG pCO2 POC ABG pO2 ABG pO2 ABG HCO3 ABG Hemoglobin Oxyhemoglobin Sodium Potassium Chloride 97.0 L Carbon Dioxide 19 L BUN 43 H Creatinine 2.6 H Glucose 130 H POC Glucose Lactic Acid 4.40 H* Calcium 6.7 L Phosphorus Magnesium Direct Bilirubin AST ALT Alkaline Phosphatase Lactate Dehydrogenase Troponin T C-Reactive Protein Total Protein Albumin Prealbumin Triglycerides Cholesterol LDL Cholesterol Direct HDL Cholesterol Urine pH Urine WBC (Auto) Urine Creatinine Urine Total Protein Fluid Total Protein Vancomycin Trough Rheumatoid Factor Complement C4 Miscellaneous Test Crossmatch 09/26/16 09/26/16 09/26/16 05:20 11:44 12:12 WBC RBC Hgb Hct MCV MCH MCHC RDW Plt Count Lymph % (Auto) [place] % (Auto) Lymph # [place] # Baso # Seg Neutrophils % Seg Neuts % (Manual) Lymphocytes % (Manual) Monocytes % (Manual) Eosinophils % (Manual) Basophils % (Manual) Nucleated RBC % Seg Neutrophils # Seg Neutrophils # Man Lymphocytes # (Manual) Monocytes # (Manual) Eosinophils # (Manual) PT INR Fibrinogen dRVVT Confirm Interp Factor V Activity POC ABG pH POC ABG pCO2 27.0 L POC ABG pO2 69 L ABG pO2 ABG HCO3 ABG Hemoglobin Oxyhemoglobin Sodium Potassium Chloride Carbon Dioxide BUN Creatinine Glucose POC Glucose 121 H 128 H Lactic Acid Calcium Phosphorus Magnesium Direct Bilirubin AST ALT Alkaline Phosphatase Lactate Dehydrogenase Troponin T C-Reactive Protein Total Protein Albumin Prealbumin Triglycerides Cholesterol LDL Cholesterol Direct HDL Cholesterol Urine pH Urine WBC (Auto) Urine Creatinine Urine Total Protein Fluid Total Protein Vancomycin Trough Rheumatoid Factor Complement C4 Miscellaneous Test Crossmatch 09/26/16 09/26/16 09/27/16 18:31 23:40 08:20 WBC RBC Hgb Hct MCV MCH MCHC RDW Plt Count Lymph % (Auto) [place] % (Auto) Lymph # [place] # Baso # Seg Neutrophils % Seg Neuts % (Manual) Lymphocytes % (Manual) Monocytes % (Manual) Eosinophils % (Manual) Basophils % (Manual) Nucleated RBC % Seg Neutrophils # Seg Neutrophils # Man Lymphocytes # (Manual) Monocytes # (Manual) Eosinophils # (Manual) PT INR Fibrinogen dRVVT Confirm Interp Factor V Activity POC ABG pH POC ABG pCO2 POC ABG pO2 ABG pO2 ABG HCO3 ABG Hemoglobin Oxyhemoglobin Sodium Potassium Chloride Carbon Dioxide BUN Creatinine Glucose POC Glucose 120 H 133 H Lactic Acid 4.10 H* Calcium Phosphorus Magnesium Direct Bilirubin AST ALT Alkaline Phosphatase Lactate Dehydrogenase Troponin T C-Reactive Protein Total Protein Albumin Prealbumin Triglycerides Cholesterol LDL Cholesterol Direct HDL Cholesterol Urine pH Urine WBC (Auto) Urine Creatinine Urine Total Protein Fluid Total Protein Vancomycin Trough Rheumatoid Factor Complement C4 Miscellaneous Test Crossmatch 09/27/16 09/27/16 09/27/16 11:23 15:00 18:15 WBC RBC Hgb Hct MCV MCH MCHC RDW Plt Count Lymph % (Auto) [place] % (Auto) Lymph # [place] # Baso # Seg Neutrophils % Seg Neuts % (Manual) Lymphocytes % (Manual) Monocytes % (Manual) Eosinophils % (Manual) Basophils % (Manual) Nucleated RBC % Seg Neutrophils # Seg Neutrophils # Man Lymphocytes # (Manual) Monocytes # (Manual) Eosinophils # (Manual) PT INR Fibrinogen dRVVT Confirm Interp Factor V Activity POC ABG pH 7.459 H POC ABG pCO2 27.1 L POC ABG pO2 140 H ABG pO2 ABG HCO3 ABG Hemoglobin Oxyhemoglobin Sodium Potassium Chloride Carbon Dioxide BUN Creatinine Glucose POC Glucose 114 H 127 H Lactic Acid Calcium Phosphorus Magnesium Direct Bilirubin AST ALT Alkaline Phosphatase Lactate Dehydrogenase Troponin T C-Reactive Protein Total Protein Albumin Prealbumin Triglycerides Cholesterol LDL Cholesterol Direct HDL Cholesterol Urine pH Urine WBC (Auto) Urine Creatinine Urine Total Protein Fluid Total Protein Vancomycin Trough Rheumatoid Factor Complement C4 Miscellaneous Test Crossmatch 09/27/16 09/27/16 09/28/16 Unknown Unknown 03:45 WBC RBC 2.49 L Hgb 6.8 L Hct 20.7 L MCV MCH 27 L MCHC RDW 22.1 H Plt Count Lymph % (Auto) [place] % (Auto) Lymph # [place] # Baso # Seg Neutrophils % Seg Neuts % (Manual) 32.0 L Lymphocytes % (Manual) 12.0 L Monocytes % (Manual) 11.0 H Eosinophils % (Manual) 10.0 H Basophils % (Manual) Nucleated RBC % Seg Neutrophils # Seg Neutrophils # Man Lymphocytes # (Manual) 1.0 L Monocytes # (Manual) 0.9 H Eosinophils # (Manual) 0.8 H PT INR Fibrinogen dRVVT Confirm Interp Factor V Activity POC ABG pH POC ABG pCO2 POC ABG pO2 ABG pO2 ABG HCO3 ABG Hemoglobin Oxyhemoglobin Sodium 135 L 135 L Potassium 3.5 L Chloride 93.6 L 94.4 L Carbon Dioxide 17 L 21 L BUN 45 H 28 H Creatinine 3.3 H 2.5 H Glucose 106 H POC Glucose Lactic Acid Calcium 7.3 L 7.1 L Phosphorus Magnesium Direct Bilirubin AST ALT Alkaline Phosphatase Lactate Dehydrogenase Troponin T C-Reactive Protein Total Protein Albumin Prealbumin Triglycerides Cholesterol LDL Cholesterol Direct HDL Cholesterol Urine pH Urine WBC (Auto) Urine Creatinine Urine Total Protein Fluid Total Protein Vancomycin Trough Rheumatoid Factor Complement C4 Miscellaneous Test Crossmatch 09/28/16 09/28/16 09/28/16 03:45 07:25 11:58 WBC 13.3 H RBC 3.01 L Hgb 8.4 L Hct 25.0 L MCV MCH MCHC RDW 20.5 H Plt Count 128 L Lymph % (Auto) [place] % (Auto) Lymph # [place] # Baso # Seg Neutrophils % Seg Neuts % (Manual) Lymphocytes % (Manual) 7.0 L Monocytes % (Manual) Eosinophils % (Manual) 6.0 H Basophils % (Manual) Nucleated RBC % Seg Neutrophils # Seg Neutrophils # Man Lymphocytes # (Manual) 0.9 L Monocytes # (Manual) Eosinophils # (Manual) 0.8 H PT INR Fibrinogen dRVVT Confirm Interp Factor V Activity POC ABG pH POC ABG pCO2 POC ABG pO2 ABG pO2 ABG HCO3 ABG Hemoglobin Oxyhemoglobin Sodium Potassium Chloride Carbon Dioxide BUN Creatinine Glucose POC Glucose 121 H Lactic Acid 4.50 H* Calcium Phosphorus Magnesium Direct Bilirubin AST ALT Alkaline Phosphatase Lactate Dehydrogenase Troponin T C-Reactive Protein Total Protein Albumin Prealbumin Triglycerides Cholesterol LDL Cholesterol Direct HDL Cholesterol Urine pH Urine WBC (Auto) Urine Creatinine Urine Total Protein Fluid Total Protein Vancomycin Trough Rheumatoid Factor Complement C4 Miscellaneous Test Crossmatch 09/29/16 09/29/16 09/29/16 06:45 06:45 06:45 WBC 14.9 H RBC 2.74 L Hgb 7.6 L Hct 23.2 L MCV MCH MCHC RDW 20.5 H Plt Count 81 L Lymph % (Auto) [place] % (Auto) Lymph # [place] # Baso # Seg Neutrophils % Seg Neuts % (Manual) 81.0 H Lymphocytes % (Manual) 4.0 L Monocytes % (Manual) Eosinophils % (Manual) Basophils % (Manual) Nucleated RBC % Seg Neutrophils # Seg Neutrophils # Man 12.1 H Lymphocytes # (Manual) 0.6 L Monocytes # (Manual) Eosinophils # (Manual) PT INR Fibrinogen dRVVT Confirm Interp Factor V Activity POC ABG pH POC ABG pCO2 POC ABG pO2 ABG pO2 ABG HCO3 ABG Hemoglobin Oxyhemoglobin Sodium 133 L Potassium 3.4 L Chloride 92.5 L Carbon Dioxide 21 L BUN 33 H Creatinine 3.0 H Glucose POC Glucose Lactic Acid Calcium 6.6 L Phosphorus Magnesium 1.40 L Direct Bilirubin 0.9 H AST ALT Alkaline Phosphatase Lactate Dehydrogenase Troponin T C-Reactive Protein Total Protein 4.3 L Albumin 1.3 L Prealbumin Triglycerides Cholesterol LDL Cholesterol Direct HDL Cholesterol Urine pH Urine WBC (Auto) Urine Creatinine Urine Total Protein Fluid Total Protein Vancomycin Trough Rheumatoid Factor Complement C4 Miscellaneous Test Crossmatch 09/29/16 09/29/16 09/30/16 17:52 20:12 00:07 WBC RBC Hgb Hct MCV MCH MCHC RDW Plt Count Lymph % (Auto) [place] % (Auto) Lymph # [place] # Baso # Seg Neutrophils % Seg Neuts % (Manual) Lymphocytes % (Manual) Monocytes % (Manual) Eosinophils % (Manual) Basophils % (Manual) Nucleated RBC % Seg Neutrophils # Seg Neutrophils # Man Lymphocytes # (Manual) Monocytes # (Manual) Eosinophils # (Manual) PT INR Fibrinogen dRVVT Confirm Interp Factor V Activity POC ABG pH POC ABG pCO2 POC ABG pO2 ABG pO2 ABG HCO3 ABG Hemoglobin Oxyhemoglobin Sodium Potassium Chloride Carbon Dioxide BUN Creatinine Glucose POC Glucose 50 L 51 L Lactic Acid Calcium Phosphorus Magnesium Direct Bilirubin AST ALT Alkaline Phosphatase Lactate Dehydrogenase Troponin T 0.204 H* C-Reactive Protein Total Protein Albumin Prealbumin Triglycerides Cholesterol 31 L LDL Cholesterol Direct 4 L HDL Cholesterol 3 L Urine pH Urine WBC (Auto) Urine Creatinine Urine Total Protein Fluid Total Protein Vancomycin Trough Rheumatoid Factor Complement C4 Miscellaneous Test Crossmatch 09/30/16 09/30/16 09/30/16 01:30 05:15 06:10 WBC RBC Hgb Hct MCV MCH MCHC RDW Plt Count Lymph % (Auto) [place] % (Auto) Lymph # [place] # Baso # Seg Neutrophils % Seg Neuts % (Manual) Lymphocytes % (Manual) Monocytes % (Manual) Eosinophils % (Manual) Basophils % (Manual) Nucleated RBC % Seg Neutrophils # Seg Neutrophils # Man Lymphocytes # (Manual) Monocytes # (Manual) Eosinophils # (Manual) PT INR Fibrinogen dRVVT Confirm Interp Factor V Activity POC ABG pH POC ABG pCO2 POC ABG pO2 ABG pO2 ABG HCO3 ABG Hemoglobin Oxyhemoglobin Sodium 133 L Potassium 3.2 L Chloride 93.2 L Carbon Dioxide 19 L BUN 36 H Creatinine 3.2 H Glucose 104 H POC Glucose 167 H 146 H Lactic Acid Calcium 6.4 L Phosphorus Magnesium 1.60 L Direct Bilirubin AST ALT Alkaline Phosphatase Lactate Dehydrogenase Troponin T C-Reactive Protein Total Protein Albumin Prealbumin Triglycerides Cholesterol LDL Cholesterol Direct HDL Cholesterol Urine pH Urine WBC (Auto) Urine Creatinine Urine Total Protein Fluid Total Protein Vancomycin Trough Rheumatoid Factor Complement C4 Miscellaneous Test Crossmatch 09/30/16 09/30/16 09/30/16 11:26 13:39 18:38 WBC RBC Hgb Hct MCV MCH MCHC RDW Plt Count Lymph % (Auto) [place] % (Auto) Lymph # [place] # Baso # Seg Neutrophils % Seg Neuts % (Manual) Lymphocytes % (Manual) Monocytes % (Manual) Eosinophils % (Manual) Basophils % (Manual) Nucleated RBC % Seg Neutrophils # Seg Neutrophils # Man Lymphocytes # (Manual) Monocytes # (Manual) Eosinophils # (Manual) PT INR Fibrinogen dRVVT Confirm Interp Factor V Activity POC ABG pH 7.479 H POC ABG pCO2 29.8 L POC ABG pO2 117 H ABG pO2 ABG HCO3 ABG Hemoglobin Oxyhemoglobin Sodium Potassium Chloride Carbon Dioxide BUN Creatinine Glucose POC Glucose 140 H 122 H Lactic Acid Calcium Phosphorus Magnesium Direct Bilirubin AST ALT Alkaline Phosphatase Lactate Dehydrogenase Troponin T C-Reactive Protein Total Protein Albumin Prealbumin Triglycerides Cholesterol LDL Cholesterol Direct HDL Cholesterol Urine pH Urine WBC (Auto) Urine Creatinine Urine Total Protein Fluid Total Protein Vancomycin Trough Rheumatoid Factor Complement C4 Miscellaneous Test Crossmatch 10/01/16 10/01/16 10/01/16 06:00 06:00 12:37 WBC 12.6 H RBC 2.75 L Hgb 7.3 L Hct 23.3 L MCV MCH 27 L MCHC RDW 20.6 H Plt Count 72 L Lymph % (Auto) [place] % (Auto) Lymph # [place] # Baso # Seg Neutrophils % Seg Neuts % (Manual) 31.0 L Lymphocytes % (Manual) 8.0 L Monocytes % (Manual) Eosinophils % (Manual) Basophils % (Manual) Nucleated RBC % 3.0 H Seg Neutrophils # Seg Neutrophils # Man Lymphocytes # (Manual) 1.0 L Monocytes # (Manual) Eosinophils # (Manual) PT INR Fibrinogen dRVVT Confirm Interp Factor V Activity POC ABG pH POC ABG pCO2 POC ABG pO2 ABG pO2 ABG HCO3 ABG Hemoglobin Oxyhemoglobin Sodium 127 L Potassium Chloride 86.8 L Carbon Dioxide 20 L BUN 42 H Creatinine 3.5 H Glucose POC Glucose 65 L Lactic Acid Calcium 7.0 L Phosphorus Magnesium Direct Bilirubin AST ALT Alkaline Phosphatase Lactate Dehydrogenase Troponin T C-Reactive Protein Total Protein Albumin Prealbumin Triglycerides Cholesterol LDL Cholesterol Direct HDL Cholesterol Urine pH Urine WBC (Auto) Urine Creatinine Urine Total Protein Fluid Total Protein Vancomycin Trough Rheumatoid Factor Complement C4 Miscellaneous Test Crossmatch 10/01/16 10/01/16 10/02/16 17:39 23:32 00:59 WBC RBC Hgb Hct MCV MCH MCHC RDW Plt Count Lymph % (Auto) [place] % (Auto) Lymph # [place] # Baso # Seg Neutrophils % Seg Neuts % (Manual) Lymphocytes % (Manual) Monocytes % (Manual) Eosinophils % (Manual) Basophils % (Manual) Nucleated RBC % Seg Neutrophils # Seg Neutrophils # Man Lymphocytes # (Manual) Monocytes # (Manual) Eosinophils # (Manual) PT INR Fibrinogen dRVVT Confirm Interp Factor V Activity POC ABG pH POC ABG pCO2 POC ABG pO2 ABG pO2 ABG HCO3 ABG Hemoglobin Oxyhemoglobin Sodium Potassium Chloride Carbon Dioxide BUN Creatinine Glucose POC Glucose 107 H 52 L 145 H Lactic Acid Calcium Phosphorus Magnesium Direct Bilirubin AST ALT Alkaline Phosphatase Lactate Dehydrogenase Troponin T C-Reactive Protein Total Protein Albumin Prealbumin Triglycerides Cholesterol LDL Cholesterol Direct HDL Cholesterol Urine pH Urine WBC (Auto) Urine Creatinine Urine Total Protein Fluid Total Protein Vancomycin Trough Rheumatoid Factor Complement C4 Miscellaneous Test Crossmatch 10/02/16 10/02/16 10/02/16 10:30 10:50 10:50 WBC 14.7 H RBC 2.76 L Hgb 7.4 L Hct 23.6 L MCV MCH 27 L MCHC RDW 20.2 H Plt Count 79 L Lymph % (Auto) [place] % (Auto) Lymph # [place] # Baso # Seg Neutrophils % Seg Neuts % (Manual) 86.0 H Lymphocytes % (Manual) 6.0 L Monocytes % (Manual) Eosinophils % (Manual) Basophils % (Manual) Nucleated RBC % Seg Neutrophils # Seg Neutrophils # Man 12.6 H Lymphocytes # (Manual) 0.9 L Monocytes # (Manual) Eosinophils # (Manual) PT INR Fibrinogen dRVVT Confirm Interp Factor V Activity POC ABG pH 7.486 H POC ABG pCO2 30.1 L POC ABG pO2 108 H ABG pO2 ABG HCO3 ABG Hemoglobin Oxyhemoglobin Sodium 131 L Potassium 3.4 L Chloride 89.9 L Carbon Dioxide BUN 26 H Creatinine 2.6 H Glucose POC Glucose Lactic Acid Calcium 7.0 L Phosphorus Magnesium Direct Bilirubin AST ALT Alkaline Phosphatase Lactate Dehydrogenase Troponin T C-Reactive Protein Total Protein Albumin Prealbumin Triglycerides Cholesterol LDL Cholesterol Direct HDL Cholesterol Urine pH Urine WBC (Auto) Urine Creatinine Urine Total Protein Fluid Total Protein Vancomycin Trough Rheumatoid Factor Complement C4 Miscellaneous Test Crossmatch 10/02/16 10/03/16 10/03/16 23:45 00:45 05:10 WBC 12.9 H RBC 2.77 L Hgb 7.6 L Hct 23.7 L MCV MCH 27 L MCHC RDW 19.7 H Plt Count 89 L Lymph % (Auto) [place] % (Auto) Lymph # [place] # Baso # Seg Neutrophils % Seg Neuts % (Manual) Lymphocytes % (Manual) 8.0 L Monocytes % (Manual) Eosinophils % (Manual) Basophils % (Manual) Nucleated RBC % Seg Neutrophils # 11.9 H Seg Neutrophils # Man Lymphocytes # (Manual) 1.0 L Monocytes # (Manual) Eosinophils # (Manual) PT INR Fibrinogen dRVVT Confirm Interp Factor V Activity POC ABG pH POC ABG pCO2 POC ABG pO2 ABG pO2 ABG HCO3 ABG Hemoglobin Oxyhemoglobin Sodium Potassium Chloride Carbon Dioxide BUN Creatinine Glucose POC Glucose 55 L 199 H Lactic Acid Calcium Phosphorus Magnesium Direct Bilirubin AST ALT Alkaline Phosphatase Lactate Dehydrogenase Troponin T C-Reactive Protein Total Protein Albumin Prealbumin Triglycerides Cholesterol LDL Cholesterol Direct HDL Cholesterol Urine pH Urine WBC (Auto) Urine Creatinine Urine Total Protein Fluid Total Protein Vancomycin Trough Rheumatoid Factor Complement C4 Miscellaneous Test Crossmatch 10/03/16 10/03/16 10/03/16 05:10 12:14 13:18 WBC RBC Hgb Hct MCV MCH MCHC RDW Plt Count Lymph % (Auto) [place] % (Auto) Lymph # [place] # Baso # Seg Neutrophils % Seg Neuts % (Manual) Lymphocytes % (Manual) Monocytes % (Manual) Eosinophils % (Manual) Basophils % (Manual) Nucleated RBC % Seg Neutrophils # Seg Neutrophils # Man Lymphocytes # (Manual) Monocytes # (Manual) Eosinophils # (Manual) PT INR Fibrinogen dRVVT Confirm Interp Factor V Activity POC ABG pH POC ABG pCO2 POC ABG pO2 ABG pO2 ABG HCO3 ABG Hemoglobin Oxyhemoglobin Sodium 129 L Potassium 3.3 L Chloride 88.8 L Carbon Dioxide 20 L BUN 29 H Creatinine 2.8 H Glucose POC Glucose 68 L 127 H Lactic Acid Calcium 7.2 L Phosphorus Magnesium Direct Bilirubin AST ALT Alkaline Phosphatase Lactate Dehydrogenase Troponin T C-Reactive Protein Total Protein Albumin Prealbumin Triglycerides Cholesterol LDL Cholesterol Direct HDL Cholesterol Urine pH Urine WBC (Auto) Urine Creatinine Urine Total Protein Fluid Total Protein Vancomycin Trough Rheumatoid Factor Complement C4 Miscellaneous Test Crossmatch 10/03/16 10/03/16 10/03/16 14:42 18:21 19:09 WBC RBC Hgb Hct MCV MCH MCHC RDW Plt Count Lymph % (Auto) [place] % (Auto) Lymph # [place] # Baso # Seg Neutrophils % Seg Neuts % (Manual) Lymphocytes % (Manual) Monocytes % (Manual) Eosinophils % (Manual) Basophils % (Manual) Nucleated RBC % Seg Neutrophils # Seg Neutrophils # Man Lymphocytes # (Manual) Monocytes # (Manual) Eosinophils # (Manual) PT INR Fibrinogen dRVVT Confirm Interp Factor V Activity POC ABG pH 7.499 H POC ABG pCO2 28.4 L POC ABG pO2 44 L ABG pO2 ABG HCO3 ABG Hemoglobin Oxyhemoglobin Sodium Potassium Chloride Carbon Dioxide BUN Creatinine Glucose POC Glucose 64 L 205 H Lactic Acid Calcium Phosphorus Magnesium Direct Bilirubin AST ALT Alkaline Phosphatase Lactate Dehydrogenase Troponin T C-Reactive Protein Total Protein Albumin Prealbumin Triglycerides Cholesterol LDL Cholesterol Direct HDL Cholesterol Urine pH Urine WBC (Auto) Urine Creatinine Urine Total Protein Fluid Total Protein Vancomycin Trough Rheumatoid Factor Complement C4 Miscellaneous Test Crossmatch 10/03/16 10/04/16 10/04/16 23:33 04:18 06:30 WBC RBC 2.54 L Hgb 7.1 L Hct 21.7 L MCV MCH MCHC RDW 19.5 H Plt Count 76 L Lymph % (Auto) [place] % (Auto) Lymph # [place] # Baso # Seg Neutrophils % Seg Neuts % (Manual) 88.0 H Lymphocytes % (Manual) 6.0 L Monocytes % (Manual) Eosinophils % (Manual) Basophils % (Manual) Nucleated RBC % Seg Neutrophils # Seg Neutrophils # Man 8.8 H Lymphocytes # (Manual) 0.6 L Monocytes # (Manual) Eosinophils # (Manual) PT INR Fibrinogen dRVVT Confirm Interp Factor V Activity POC ABG pH 7.461 H POC ABG pCO2 33.6 L POC ABG pO2 211 H ABG pO2 ABG HCO3 ABG Hemoglobin Oxyhemoglobin Sodium Potassium Chloride Carbon Dioxide BUN Creatinine Glucose POC Glucose 136 H Lactic Acid Calcium Phosphorus Magnesium Direct Bilirubin AST ALT Alkaline Phosphatase Lactate Dehydrogenase Troponin T C-Reactive Protein Total Protein Albumin Prealbumin Triglycerides Cholesterol LDL Cholesterol Direct HDL Cholesterol Urine pH Urine WBC (Auto) Urine Creatinine Urine Total Protein Fluid Total Protein Vancomycin Trough Rheumatoid Factor Complement C4 Miscellaneous Test Crossmatch 10/04/16 10/04/16 10/04/16 06:30 11:45 17:54 WBC RBC Hgb Hct MCV MCH MCHC RDW Plt Count Lymph % (Auto) [place] % (Auto) Lymph # [place] # Baso # Seg Neutrophils % Seg Neuts % (Manual) Lymphocytes % (Manual) Monocytes % (Manual) Eosinophils % (Manual) Basophils % (Manual) Nucleated RBC % Seg Neutrophils # Seg Neutrophils # Man Lymphocytes # (Manual) Monocytes # (Manual) Eosinophils # (Manual) PT INR Fibrinogen dRVVT Confirm Interp Factor V Activity POC ABG pH POC ABG pCO2 POC ABG pO2 ABG pO2 ABG HCO3 ABG Hemoglobin Oxyhemoglobin Sodium 128 L Potassium Chloride 87.4 L Carbon Dioxide 20 L BUN 34 H Creatinine 2.9 H Glucose 127 H POC Glucose 158 H 160 H Lactic Acid Calcium 7.4 L Phosphorus Magnesium Direct Bilirubin AST ALT Alkaline Phosphatase Lactate Dehydrogenase Troponin T C-Reactive Protein Total Protein Albumin Prealbumin Triglycerides Cholesterol LDL Cholesterol Direct HDL Cholesterol Urine pH Urine WBC (Auto) Urine Creatinine Urine Total Protein Fluid Total Protein Vancomycin Trough Rheumatoid Factor Complement C4 Miscellaneous Test Crossmatch 10/04/16 10/05/16 10/05/16 23:25 04:30 05:00 WBC RBC 2.64 L Hgb 7.5 L Hct 22.6 L MCV MCH MCHC RDW 19.3 H Plt Count 80 L Lymph % (Auto) [place] % (Auto) Lymph # [place] # Baso # Seg Neutrophils % Seg Neuts % (Manual) Lymphocytes % (Manual) 12.0 L Monocytes % (Manual) Eosinophils % (Manual) Basophils % (Manual) Nucleated RBC % Seg Neutrophils # Seg Neutrophils # Man Lymphocytes # (Manual) Monocytes # (Manual) Eosinophils # (Manual) PT INR Fibrinogen dRVVT Confirm Interp Factor V Activity POC ABG pH 7.475 H POC ABG pCO2 33.3 L POC ABG pO2 140 H ABG pO2 ABG HCO3 ABG Hemoglobin Oxyhemoglobin Sodium Potassium Chloride Carbon Dioxide BUN Creatinine Glucose POC Glucose 141 H Lactic Acid Calcium Phosphorus Magnesium Direct Bilirubin AST ALT Alkaline Phosphatase Lactate Dehydrogenase Troponin T C-Reactive Protein Total Protein Albumin Prealbumin Triglycerides Cholesterol LDL Cholesterol Direct HDL Cholesterol Urine pH Urine WBC (Auto) Urine Creatinine Urine Total Protein Fluid Total Protein Vancomycin Trough Rheumatoid Factor Complement C4 Miscellaneous Test Crossmatch 10/05/16 10/05/16 10/05/16 05:00 05:09 12:58 WBC RBC Hgb Hct MCV MCH MCHC RDW Plt Count Lymph % (Auto) [place] % (Auto) Lymph # [place] # Baso # Seg Neutrophils % Seg Neuts % (Manual) Lymphocytes % (Manual) Monocytes % (Manual) Eosinophils % (Manual) Basophils % (Manual) Nucleated RBC % Seg Neutrophils # Seg Neutrophils # Man Lymphocytes # (Manual) Monocytes # (Manual) Eosinophils # (Manual) PT INR Fibrinogen dRVVT Confirm Interp Factor V Activity POC ABG pH POC ABG pCO2 POC ABG pO2 ABG pO2 ABG HCO3 ABG Hemoglobin Oxyhemoglobin Sodium 131 L Potassium Chloride 94.0 L Carbon Dioxide 20 L BUN 22 H Creatinine 2.0 H Glucose 123 H POC Glucose 166 H 179 H Lactic Acid Calcium 7.7 L Phosphorus 2.20 L D Magnesium Direct Bilirubin AST ALT Alkaline Phosphatase Lactate Dehydrogenase Troponin T C-Reactive Protein Total Protein Albumin Prealbumin Triglycerides Cholesterol LDL Cholesterol Direct HDL Cholesterol Urine pH Urine WBC (Auto) Urine Creatinine Urine Total Protein Fluid Total Protein Vancomycin Trough Rheumatoid Factor Complement C4 Miscellaneous Test Crossmatch 10/05/16 10/05/16 10/05/16 15:50 18:53 23:12 WBC RBC Hgb Hct MCV MCH MCHC RDW Plt Count Lymph % (Auto) [place] % (Auto) Lymph # [place] # Baso # Seg Neutrophils % Seg Neuts % (Manual) Lymphocytes % (Manual) Monocytes % (Manual) Eosinophils % (Manual) Basophils % (Manual) Nucleated RBC % Seg Neutrophils # Seg Neutrophils # Man Lymphocytes # (Manual) Monocytes # (Manual) Eosinophils # (Manual) PT INR Fibrinogen dRVVT Confirm Interp Factor V Activity POC ABG pH POC ABG pCO2 POC ABG pO2 ABG pO2 ABG HCO3 ABG Hemoglobin Oxyhemoglobin Sodium Potassium Chloride Carbon Dioxide BUN Creatinine Glucose POC Glucose 150 H 164 H Lactic Acid Calcium Phosphorus Magnesium Direct Bilirubin AST ALT Alkaline Phosphatase Lactate Dehydrogenase Troponin T C-Reactive Protein Total Protein Albumin Prealbumin Triglycerides Cholesterol LDL Cholesterol Direct HDL Cholesterol Urine pH Urine WBC (Auto) Urine Creatinine Urine Total Protein Fluid Total Protein Vancomycin Trough Rheumatoid Factor Complement C4 Miscellaneous Test Crossmatch See Detail 10/06/16 10/06/16 10/06/16 03:50 03:50 04:53 WBC RBC 3.00 L Hgb 8.6 L Hct 25.8 L MCV MCH MCHC RDW 17.9 H Plt Count 65 L Lymph % (Auto) [place] % (Auto) Lymph # [place] # Baso # Seg Neutrophils % Seg Neuts % (Manual) 30.0 L Lymphocytes % (Manual) 5.0 L Monocytes % (Manual) Eosinophils % (Manual) Basophils % (Manual) Nucleated RBC % Seg Neutrophils # Seg Neutrophils # Man Lymphocytes # (Manual) 0.4 L Monocytes # (Manual) Eosinophils # (Manual) PT INR Fibrinogen dRVVT Confirm Interp Factor V Activity POC ABG pH 7.310 L POC ABG pCO2 49.0 H POC ABG pO2 ABG pO2 ABG HCO3 ABG Hemoglobin Oxyhemoglobin Sodium 133 L Potassium Chloride 95.9 L Carbon Dioxide BUN 26 H Creatinine 2.0 H Glucose 116 H POC Glucose Lactic Acid Calcium 7.8 L Phosphorus Magnesium Direct Bilirubin AST ALT Alkaline Phosphatase Lactate Dehydrogenase Troponin T C-Reactive Protein Total Protein Albumin Prealbumin Triglycerides Cholesterol LDL Cholesterol Direct HDL Cholesterol Urine pH Urine WBC (Auto) Urine Creatinine Urine Total Protein Fluid Total Protein Vancomycin Trough Rheumatoid Factor Complement C4 Miscellaneous Test Crossmatch 10/06/16 10/06/16 10/06/16 05:23 11:52 18:34 WBC RBC Hgb Hct MCV MCH MCHC RDW Plt Count Lymph % (Auto) [place] % (Auto) Lymph # [place] # Baso # Seg Neutrophils % Seg Neuts % (Manual) Lymphocytes % (Manual) Monocytes % (Manual) Eosinophils % (Manual) Basophils % (Manual) Nucleated RBC % Seg Neutrophils # Seg Neutrophils # Man Lymphocytes # (Manual) Monocytes # (Manual) Eosinophils # (Manual) PT INR Fibrinogen dRVVT Confirm Interp Factor V Activity POC ABG pH POC ABG pCO2 POC ABG pO2 ABG pO2 ABG HCO3 ABG Hemoglobin Oxyhemoglobin Sodium Potassium Chloride Carbon Dioxide BUN Creatinine Glucose POC Glucose 126 H 116 H 129 H Lactic Acid Calcium Phosphorus Magnesium Direct Bilirubin AST ALT Alkaline Phosphatase Lactate Dehydrogenase Troponin T C-Reactive Protein Total Protein Albumin Prealbumin Triglycerides Cholesterol LDL Cholesterol Direct HDL Cholesterol Urine pH Urine WBC (Auto) Urine Creatinine Urine Total Protein Fluid Total Protein Vancomycin Trough Rheumatoid Factor Complement C4 Miscellaneous Test Crossmatch 10/07/16 10/07/16 10/07/16 03:45 05:00 10:00 WBC 17.0 H RBC 2.68 L Hgb 7.3 L Hct 25.3 L MCV MCH 27 L MCHC 29 L RDW 19.6 H Plt Count 74 L Lymph % (Auto) [place] % (Auto) Lymph # [place] # Baso # Seg Neutrophils % Seg Neuts % (Manual) Lymphocytes % (Manual) 12.0 L Monocytes % (Manual) Eosinophils % (Manual) Basophils % (Manual) Nucleated RBC % 4.0 H Seg Neutrophils # Seg Neutrophils # Man 10.7 H Lymphocytes # (Manual) Monocytes # (Manual) Eosinophils # (Manual) PT INR Fibrinogen dRVVT Confirm Interp Factor V Activity POC ABG pH POC ABG pCO2 POC ABG pO2 ABG pO2 ABG HCO3 ABG Hemoglobin Oxyhemoglobin Sodium 130 L Potassium 3.2 L Chloride 93.9 L Carbon Dioxide 20 L BUN 44 H Creatinine 2.7 H Glucose 129 H POC Glucose Lactic Acid Calcium 7.4 L Phosphorus Magnesium Direct Bilirubin AST ALT 6 L Alkaline Phosphatase 195 H Lactate Dehydrogenase Troponin T C-Reactive Protein Total Protein 4.9 L Albumin 1.0 L Prealbumin Triglycerides Cholesterol LDL Cholesterol Direct HDL Cholesterol Urine pH Urine WBC (Auto) Urine Creatinine Urine Total Protein Fluid Total Protein Vancomycin Trough Rheumatoid Factor Complement C4 Miscellaneous Test Flexitest 1 H Crossmatch 10/07/16 10/07/16 10/07/16 10:00 11:24 18:10 WBC RBC Hgb Hct MCV MCH MCHC RDW Plt Count Lymph % (Auto) [place] % (Auto) Lymph # [place] # Baso # Seg Neutrophils % Seg Neuts % (Manual) Lymphocytes % (Manual) Monocytes % (Manual) Eosinophils % (Manual) Basophils % (Manual) Nucleated RBC % Seg Neutrophils # Seg Neutrophils # Man Lymphocytes # (Manual) Monocytes # (Manual) Eosinophils # (Manual) PT INR Fibrinogen dRVVT Confirm Interp Factor V Activity POC ABG pH POC ABG pCO2 POC ABG pO2 ABG pO2 ABG HCO3 ABG Hemoglobin Oxyhemoglobin Sodium Potassium Chloride Carbon Dioxide BUN Creatinine Glucose POC Glucose 116 H 130 H Lactic Acid Calcium Phosphorus Magnesium Direct Bilirubin AST ALT Alkaline Phosphatase Lactate Dehydrogenase Troponin T C-Reactive Protein 19.40 H Total Protein Albumin Prealbumin Triglycerides Cholesterol LDL Cholesterol Direct HDL Cholesterol Urine pH Urine WBC (Auto) Urine Creatinine Urine Total Protein Fluid Total Protein Vancomycin Trough Rheumatoid Factor Complement C4 Miscellaneous Test Crossmatch 10/07/16 10/08/16 10/08/16 18:30 00:00 04:00 WBC RBC Hgb Hct MCV MCH MCHC RDW Plt Count Lymph % (Auto) [place] % (Auto) Lymph # [place] # Baso # Seg Neutrophils % Seg Neuts % (Manual) Lymphocytes % (Manual) Monocytes % (Manual) Eosinophils % (Manual) Basophils % (Manual) Nucleated RBC % Seg Neutrophils # Seg Neutrophils # Man Lymphocytes # (Manual) Monocytes # (Manual) Eosinophils # (Manual) PT INR Fibrinogen dRVVT Confirm Interp Factor V Activity POC ABG pH POC ABG pCO2 POC ABG pO2 ABG pO2 ABG HCO3 ABG Hemoglobin Oxyhemoglobin Sodium 132 L Potassium 3.3 L Chloride 93.6 L Carbon Dioxide 17 L BUN 59 H Creatinine 2.7 H Glucose 121 H POC Glucose 122 H Lactic Acid Calcium 7.6 L Phosphorus Magnesium Direct Bilirubin AST ALT Alkaline Phosphatase Lactate Dehydrogenase Troponin T C-Reactive Protein Total Protein Albumin Prealbumin Triglycerides Cholesterol LDL Cholesterol Direct HDL Cholesterol Urine pH Urine WBC (Auto) > 182.0 H Urine Creatinine Urine Total Protein Fluid Total Protein Vancomycin Trough Rheumatoid Factor Complement C4 Miscellaneous Test Crossmatch 10/08/16 10/08/16 10/08/16 04:30 05:30 11:51 WBC RBC 5.15 H Hgb 14.4 H D Hct 44.5 H D MCV MCH MCHC RDW 19.5 H Plt Count 56 L Lymph % (Auto) [place] % (Auto) Lymph # [place] # Baso # Seg Neutrophils % Seg Neuts % (Manual) 24.0 L Lymphocytes % (Manual) 8.0 L Monocytes % (Manual) Eosinophils % (Manual) Basophils % (Manual) Nucleated RBC % 9.0 H Seg Neutrophils # Seg Neutrophils # Man Lymphocytes # (Manual) 0.7 L Monocytes # (Manual) Eosinophils # (Manual) PT INR Fibrinogen dRVVT Confirm Interp Factor V Activity POC ABG pH POC ABG pCO2 POC ABG pO2 ABG pO2 ABG HCO3 ABG Hemoglobin Oxyhemoglobin Sodium Potassium Chloride Carbon Dioxide BUN Creatinine Glucose POC Glucose 125 H 150 H Lactic Acid Calcium Phosphorus Magnesium Direct Bilirubin AST ALT Alkaline Phosphatase Lactate Dehydrogenase Troponin T C-Reactive Protein Total Protein Albumin Prealbumin Triglycerides Cholesterol LDL Cholesterol Direct HDL Cholesterol Urine pH Urine WBC (Auto) Urine Creatinine Urine Total Protein Fluid Total Protein Vancomycin Trough Rheumatoid Factor Complement C4 Miscellaneous Test Crossmatch 10/08/16 10/08/16 10/08/16 12:49 17:07 19:30 WBC RBC Hgb 7.1 L D Hct 22.4 L D MCV MCH MCHC RDW Plt Count Lymph % (Auto) [place] % (Auto) Lymph # [place] # Baso # Seg Neutrophils % Seg Neuts % (Manual) Lymphocytes % (Manual) Monocytes % (Manual) Eosinophils % (Manual) Basophils % (Manual) Nucleated RBC % Seg Neutrophils # Seg Neutrophils # Man Lymphocytes # (Manual) Monocytes # (Manual) Eosinophils # (Manual) PT INR Fibrinogen dRVVT Confirm Interp Factor V Activity POC ABG pH POC ABG pCO2 28.2 L POC ABG pO2 111 H ABG pO2 ABG HCO3 ABG Hemoglobin Oxyhemoglobin Sodium Potassium Chloride Carbon Dioxide BUN Creatinine Glucose POC Glucose 145 H Lactic Acid Calcium Phosphorus Magnesium Direct Bilirubin AST ALT Alkaline Phosphatase Lactate Dehydrogenase Troponin T C-Reactive Protein Total Protein Albumin Prealbumin Triglycerides Cholesterol LDL Cholesterol Direct HDL Cholesterol Urine pH Urine WBC (Auto) Urine Creatinine Urine Total Protein Fluid Total Protein Vancomycin Trough Rheumatoid Factor Complement C4 Miscellaneous Test Crossmatch 10/08/16 10/09/16 10/09/16 19:30 03:45 03:45 WBC 12.6 H RBC 2.36 L Hgb 6.7 L Hct 21.1 L MCV MCH MCHC RDW 19.5 H Plt Count 75 L Lymph % (Auto) [place] % (Auto) Lymph # [place] # Baso # Seg Neutrophils % Seg Neuts % (Manual) Lymphocytes % (Manual) Monocytes % (Manual) 10.0 H Eosinophils % (Manual) Basophils % (Manual) Nucleated RBC % 3.0 H Seg Neutrophils # Seg Neutrophils # Man Lymphocytes # (Manual) Monocytes # (Manual) 1.3 H Eosinophils # (Manual) PT 18.0 H INR 1.41 H Fibrinogen dRVVT Confirm Interp Factor V Activity POC ABG pH POC ABG pCO2 POC ABG pO2 ABG pO2 ABG HCO3 ABG Hemoglobin Oxyhemoglobin Sodium 135 L Potassium Chloride Carbon Dioxide 17 L BUN 81 H Creatinine 3.2 H Glucose 109 H POC Glucose Lactic Acid Calcium 7.4 L Phosphorus 4.60 H D Magnesium Direct Bilirubin AST ALT Alkaline Phosphatase Lactate Dehydrogenase Troponin T C-Reactive Protein Total Protein Albumin Prealbumin Triglycerides Cholesterol LDL Cholesterol Direct HDL Cholesterol Urine pH Urine WBC (Auto) Urine Creatinine Urine Total Protein Fluid Total Protein Vancomycin Trough Rheumatoid Factor Complement C4 Miscellaneous Test Crossmatch 10/09/16 10/09/16 10/09/16 03:45 05:14 07:20 WBC RBC Hgb Hct MCV MCH MCHC RDW Plt Count Lymph % (Auto) [place] % (Auto) Lymph # [place] # Baso # Seg Neutrophils % Seg Neuts % (Manual) Lymphocytes % (Manual) Monocytes % (Manual) Eosinophils % (Manual) Basophils % (Manual) Nucleated RBC % Seg Neutrophils # Seg Neutrophils # Man Lymphocytes # (Manual) Monocytes # (Manual) Eosinophils # (Manual) PT 19.0 H INR 1.51 H Fibrinogen dRVVT Confirm Interp Factor V Activity POC ABG pH POC ABG pCO2 POC ABG pO2 ABG pO2 ABG HCO3 ABG Hemoglobin Oxyhemoglobin Sodium Potassium Chloride Carbon Dioxide BUN Creatinine Glucose POC Glucose 151 H Lactic Acid Calcium Phosphorus Magnesium Direct Bilirubin AST ALT Alkaline Phosphatase Lactate Dehydrogenase Troponin T C-Reactive Protein Total Protein Albumin Prealbumin Triglycerides Cholesterol LDL Cholesterol Direct HDL Cholesterol Urine pH Urine WBC (Auto) Urine Creatinine Urine Total Protein Fluid Total Protein Vancomycin Trough Rheumatoid Factor Complement C4 Miscellaneous Test Crossmatch See Detail 10/09/16 10/09/16 10/09/16 11:46 16:20 16:43 WBC RBC Hgb 7.2 L Hct 22.2 L MCV MCH MCHC RDW Plt Count Lymph % (Auto) [place] % (Auto) Lymph # [place] # Baso # Seg Neutrophils % Seg Neuts % (Manual) Lymphocytes % (Manual) Monocytes % (Manual) Eosinophils % (Manual) Basophils % (Manual) Nucleated RBC % Seg Neutrophils # Seg Neutrophils # Man Lymphocytes # (Manual) Monocytes # (Manual) Eosinophils # (Manual) PT INR Fibrinogen dRVVT Confirm Interp Factor V Activity POC ABG pH POC ABG pCO2 POC ABG pO2 ABG pO2 ABG HCO3 ABG Hemoglobin Oxyhemoglobin Sodium Potassium Chloride Carbon Dioxide BUN Creatinine Glucose POC Glucose 133 H 141 H Lactic Acid Calcium Phosphorus Magnesium Direct Bilirubin AST ALT Alkaline Phosphatase Lactate Dehydrogenase Troponin T C-Reactive Protein Total Protein Albumin Prealbumin Triglycerides Cholesterol LDL Cholesterol Direct HDL Cholesterol Urine pH Urine WBC (Auto) Urine Creatinine Urine Total Protein Fluid Total Protein Vancomycin Trough Rheumatoid Factor Complement C4 Miscellaneous Test Crossmatch 10/10/16 10/10/16 10/10/16 05:00 05:00 11:19 WBC 18.5 H RBC 2.19 L Hgb 6.4 L Hct 19.6 L* MCV MCH MCHC RDW 19.3 H Plt Count 93 L Lymph % (Auto) [place] % (Auto) Lymph # [place] # Baso # Seg Neutrophils % Seg Neuts % (Manual) Lymphocytes % (Manual) 10.0 L Monocytes % (Manual) Eosinophils % (Manual) Basophils % (Manual) Nucleated RBC % 4.0 H Seg Neutrophils # Seg Neutrophils # Man 11.3 H Lymphocytes # (Manual) Monocytes # (Manual) Eosinophils # (Manual) PT INR Fibrinogen dRVVT Confirm Interp Factor V Activity POC ABG pH POC ABG pCO2 POC ABG pO2 ABG pO2 ABG HCO3 ABG Hemoglobin Oxyhemoglobin Sodium Potassium 5.7 H D Chloride Carbon Dioxide 16 L BUN 94 H Creatinine 3.1 H Glucose 131 H POC Glucose 153 H Lactic Acid Calcium 8.2 L Phosphorus 5.10 H Magnesium 2.40 H Direct Bilirubin 0.3 H AST ALT < 5 L Alkaline Phosphatase 319 H Lactate Dehydrogenase Troponin T C-Reactive Protein Total Protein 5.1 L Albumin 1.0 L Prealbumin Triglycerides Cholesterol LDL Cholesterol Direct HDL Cholesterol Urine pH Urine WBC (Auto) Urine Creatinine Urine Total Protein Fluid Total Protein Vancomycin Trough Rheumatoid Factor Complement C4 Miscellaneous Test Crossmatch 10/10/16 10/10/16 10/11/16 17:50 23:30 04:15 WBC RBC Hgb Hct MCV MCH MCHC RDW Plt Count Lymph % (Auto) [place] % (Auto) Lymph # [place] # Baso # Seg Neutrophils % Seg Neuts % (Manual) Lymphocytes % (Manual) Monocytes % (Manual) Eosinophils % (Manual) Basophils % (Manual) Nucleated RBC % Seg Neutrophils # Seg Neutrophils # Man Lymphocytes # (Manual) Monocytes # (Manual) Eosinophils # (Manual) PT INR Fibrinogen dRVVT Confirm Interp Factor V Activity POC ABG pH POC ABG pCO2 POC ABG pO2 ABG pO2 ABG HCO3 ABG Hemoglobin Oxyhemoglobin Sodium Potassium Chloride 96.4 L Carbon Dioxide 21 L BUN 57 H Creatinine 2.1 H Glucose 151 H POC Glucose 146 H 141 H Lactic Acid Calcium 8.3 L Phosphorus Magnesium Direct Bilirubin AST ALT Alkaline Phosphatase Lactate Dehydrogenase Troponin T C-Reactive Protein Total Protein Albumin Prealbumin Triglycerides Cholesterol LDL Cholesterol Direct HDL Cholesterol Urine pH Urine WBC (Auto) Urine Creatinine Urine Total Protein Fluid Total Protein Vancomycin Trough Rheumatoid Factor Complement C4 Miscellaneous Test Crossmatch 10/11/16 10/11/16 10/11/16 04:15 04:15 05:30 WBC 28.3 H RBC 3.12 L Hgb 9.3 L Hct 28.7 L D MCV MCH MCHC RDW 17.7 H Plt Count 128 L Lymph % (Auto) [place] % (Auto) Lymph # [place] # Baso # Seg Neutrophils % Seg Neuts % (Manual) Lymphocytes % (Manual) Monocytes % (Manual) Eosinophils % (Manual) Basophils % (Manual) Nucleated RBC % Seg Neutrophils # Seg Neutrophils # Man Lymphocytes # (Manual) Monocytes # (Manual) Eosinophils # (Manual) PT INR Fibrinogen dRVVT Confirm Interp Factor V Activity POC ABG pH POC ABG pCO2 POC ABG pO2 ABG pO2 ABG HCO3 ABG Hemoglobin Oxyhemoglobin Sodium Potassium Chloride Carbon Dioxide BUN Creatinine Glucose POC Glucose 167 H Lactic Acid Calcium Phosphorus Magnesium Direct Bilirubin AST ALT Alkaline Phosphatase Lactate Dehydrogenase Troponin T C-Reactive Protein 15.80 H Total Protein Albumin Prealbumin Triglycerides Cholesterol LDL Cholesterol Direct HDL Cholesterol Urine pH Urine WBC (Auto) Urine Creatinine Urine Total Protein Fluid Total Protein Vancomycin Trough Rheumatoid Factor Complement C4 Miscellaneous Test Crossmatch 10/11/16 10/11/16 10/11/16 11:40 15:49 23:57 WBC RBC Hgb Hct MCV MCH MCHC RDW Plt Count Lymph % (Auto) [place] % (Auto) Lymph # [place] # Baso # Seg Neutrophils % Seg Neuts % (Manual) Lymphocytes % (Manual) Monocytes % (Manual) Eosinophils % (Manual) Basophils % (Manual) Nucleated RBC % Seg Neutrophils # Seg Neutrophils # Man Lymphocytes # (Manual) Monocytes # (Manual) Eosinophils # (Manual) PT INR Fibrinogen dRVVT Confirm Interp Factor V Activity POC ABG pH POC ABG pCO2 POC ABG pO2 ABG pO2 ABG HCO3 ABG Hemoglobin Oxyhemoglobin Sodium Potassium Chloride Carbon Dioxide BUN Creatinine Glucose POC Glucose 139 H 168 H 161 H Lactic Acid Calcium Phosphorus Magnesium Direct Bilirubin AST ALT Alkaline Phosphatase Lactate Dehydrogenase Troponin T C-Reactive Protein Total Protein Albumin Prealbumin Triglycerides Cholesterol LDL Cholesterol Direct HDL Cholesterol Urine pH Urine WBC (Auto) Urine Creatinine Urine Total Protein Fluid Total Protein Vancomycin Trough Rheumatoid Factor Complement C4 Miscellaneous Test Crossmatch 10/12/16 10/12/16 10/12/16 04:40 04:40 05:44 WBC 22.5 H RBC 2.88 L Hgb 8.8 L Hct 26.8 L MCV MCH MCHC RDW 17.8 H Plt Count Lymph % (Auto) [place] % (Auto) Lymph # [place] # Baso # Seg Neutrophils % Seg Neuts % (Manual) Lymphocytes % (Manual) Monocytes % (Manual) Eosinophils % (Manual) Basophils % (Manual) Nucleated RBC % Seg Neutrophils # Seg Neutrophils # Man Lymphocytes # (Manual) Monocytes # (Manual) Eosinophils # (Manual) PT INR Fibrinogen dRVVT Confirm Interp Factor V Activity POC ABG pH POC ABG pCO2 POC ABG pO2 ABG pO2 ABG HCO3 ABG Hemoglobin Oxyhemoglobin Sodium 134 L Potassium Chloride 93.0 L Carbon Dioxide BUN 74 H Creatinine 2.5 H Glucose 137 H POC Glucose 158 H Lactic Acid Calcium 8.2 L Phosphorus Magnesium Direct Bilirubin AST ALT Alkaline Phosphatase Lactate Dehydrogenase Troponin T C-Reactive Protein Total Protein Albumin Prealbumin Triglycerides Cholesterol LDL Cholesterol Direct HDL Cholesterol Urine pH Urine WBC (Auto) Urine Creatinine Urine Total Protein Fluid Total Protein Vancomycin Trough Rheumatoid Factor Complement C4 Miscellaneous Test Crossmatch 10/12/16 10/12/16 10/12/16 12:27 18:18 23:46 WBC RBC Hgb Hct MCV MCH MCHC RDW Plt Count Lymph % (Auto) [place] % (Auto) Lymph # [place] # Baso # Seg Neutrophils % Seg Neuts % (Manual) Lymphocytes % (Manual) Monocytes % (Manual) Eosinophils % (Manual) Basophils % (Manual) Nucleated RBC % Seg Neutrophils # Seg Neutrophils # Man Lymphocytes # (Manual) Monocytes # (Manual) Eosinophils # (Manual) PT INR Fibrinogen dRVVT Confirm Interp Factor V Activity POC ABG pH POC ABG pCO2 POC ABG pO2 ABG pO2 ABG HCO3 ABG Hemoglobin Oxyhemoglobin Sodium Potassium Chloride Carbon Dioxide BUN Creatinine Glucose POC Glucose 153 H 140 H 150 H Lactic Acid Calcium Phosphorus Magnesium Direct Bilirubin AST ALT Alkaline Phosphatase Lactate Dehydrogenase Troponin T C-Reactive Protein Total Protein Albumin Prealbumin Triglycerides Cholesterol LDL Cholesterol Direct HDL Cholesterol Urine pH Urine WBC (Auto) Urine Creatinine Urine Total Protein Fluid Total Protein Vancomycin Trough Rheumatoid Factor Complement C4 Miscellaneous Test Crossmatch 10/13/16 10/13/16 10/13/16 06:22 09:20 12:29 WBC RBC Hgb Hct MCV MCH MCHC RDW Plt Count Lymph % (Auto) [place] % (Auto) Lymph # [place] # Baso # Seg Neutrophils % Seg Neuts % (Manual) Lymphocytes % (Manual) Monocytes % (Manual) Eosinophils % (Manual) Basophils % (Manual) Nucleated RBC % Seg Neutrophils # Seg Neutrophils # Man Lymphocytes # (Manual) Monocytes # (Manual) Eosinophils # (Manual) PT INR Fibrinogen dRVVT Confirm Interp Factor V Activity POC ABG pH POC ABG pCO2 POC ABG pO2 ABG pO2 ABG HCO3 ABG Hemoglobin Oxyhemoglobin Sodium Potassium Chloride Carbon Dioxide BUN Creatinine Glucose POC Glucose 165 H 193 H Lactic Acid Calcium Phosphorus Magnesium Direct Bilirubin AST ALT Alkaline Phosphatase Lactate Dehydrogenase Troponin T C-Reactive Protein Total Protein Albumin Prealbumin Triglycerides Cholesterol LDL Cholesterol Direct HDL Cholesterol Urine pH Urine WBC (Auto) Urine Creatinine Urine Total Protein Fluid Total Protein Vancomycin Trough Rheumatoid Factor Complement C4 Miscellaneous Test Flexitest 1 H Crossmatch 10/13/16 10/13/16 10/13/16 18:09 Unknown Unknown WBC 23.4 H RBC 2.83 L Hgb 8.7 L Hct 26.1 L MCV MCH MCHC RDW 18.1 H Plt Count Lymph % (Auto) [place] % (Auto) Lymph # [place] # Baso # Seg Neutrophils % Seg Neuts % (Manual) Lymphocytes % (Manual) Monocytes % (Manual) Eosinophils % (Manual) Basophils % (Manual) Nucleated RBC % Seg Neutrophils # Seg Neutrophils # Man Lymphocytes # (Manual) Monocytes # (Manual) Eosinophils # (Manual) PT INR Fibrinogen dRVVT Confirm Interp Factor V Activity POC ABG pH POC ABG pCO2 POC ABG pO2 ABG pO2 ABG HCO3 ABG Hemoglobin Oxyhemoglobin Sodium Potassium Chloride 95.8 L Carbon Dioxide BUN 82 H Creatinine 2.6 H Glucose 152 H POC Glucose 166 H Lactic Acid Calcium Phosphorus Magnesium Direct Bilirubin AST ALT Alkaline Phosphatase Lactate Dehydrogenase Troponin T C-Reactive Protein Total Protein Albumin Prealbumin Triglycerides Cholesterol LDL Cholesterol Direct HDL Cholesterol Urine pH Urine WBC (Auto) Urine Creatinine Urine Total Protein Fluid Total Protein Vancomycin Trough Rheumatoid Factor Complement C4 Miscellaneous Test Crossmatch 10/14/16 10/14/16 10/14/16 05:38 06:35 08:10 WBC 20.7 H RBC 2.81 L Hgb 8.4 L Hct 27.2 L MCV MCH MCHC RDW 19.4 H Plt Count Lymph % (Auto) [place] % (Auto) Lymph # [place] # Baso # Seg Neutrophils % Seg Neuts % (Manual) Lymphocytes % (Manual) Monocytes % (Manual) Eosinophils % (Manual) Basophils % (Manual) Nucleated RBC % Seg Neutrophils # Seg Neutrophils # Man Lymphocytes # (Manual) Monocytes # (Manual) Eosinophils # (Manual) PT INR Fibrinogen dRVVT Confirm Interp Factor V Activity POC ABG pH POC ABG pCO2 POC ABG pO2 ABG pO2 ABG HCO3 ABG Hemoglobin Oxyhemoglobin Sodium Potassium Chloride Carbon Dioxide BUN 58 H Creatinine 1.9 H Glucose 169 H POC Glucose 195 H Lactic Acid Calcium Phosphorus Magnesium Direct Bilirubin AST ALT Alkaline Phosphatase Lactate Dehydrogenase Troponin T C-Reactive Protein Total Protein Albumin Prealbumin Triglycerides Cholesterol LDL Cholesterol Direct HDL Cholesterol Urine pH Urine WBC (Auto) Urine Creatinine Urine Total Protein Fluid Total Protein Vancomycin Trough Rheumatoid Factor Complement C4 Miscellaneous Test Crossmatch 10/14/16 10/14/16 10/14/16 11:44 17:13 23:28 WBC RBC Hgb Hct MCV MCH MCHC RDW Plt Count Lymph % (Auto) [place] % (Auto) Lymph # [place] # Baso # Seg Neutrophils % Seg Neuts % (Manual) Lymphocytes % (Manual) Monocytes % (Manual) Eosinophils % (Manual) Basophils % (Manual) Nucleated RBC % Seg Neutrophils # Seg Neutrophils # Man Lymphocytes # (Manual) Monocytes # (Manual) Eosinophils # (Manual) PT INR Fibrinogen dRVVT Confirm Interp Factor V Activity POC ABG pH POC ABG pCO2 POC ABG pO2 ABG pO2 ABG HCO3 ABG Hemoglobin Oxyhemoglobin Sodium Potassium Chloride Carbon Dioxide BUN Creatinine Glucose POC Glucose 174 H 121 H 151 H Lactic Acid Calcium Phosphorus Magnesium Direct Bilirubin AST ALT Alkaline Phosphatase Lactate Dehydrogenase Troponin T C-Reactive Protein Total Protein Albumin Prealbumin Triglycerides Cholesterol LDL Cholesterol Direct HDL Cholesterol Urine pH Urine WBC (Auto) Urine Creatinine Urine Total Protein Fluid Total Protein Vancomycin Trough Rheumatoid Factor Complement C4 Miscellaneous Test Crossmatch 10/15/16 10/15/16 10/15/16 05:06 12:26 17:48 WBC RBC Hgb Hct MCV MCH MCHC RDW Plt Count Lymph % (Auto) [place] % (Auto) Lymph # [place] # Baso # Seg Neutrophils % Seg Neuts % (Manual) Lymphocytes % (Manual) Monocytes % (Manual) Eosinophils % (Manual) Basophils % (Manual) Nucleated RBC % Seg Neutrophils # Seg Neutrophils # Man Lymphocytes # (Manual) Monocytes # (Manual) Eosinophils # (Manual) PT INR Fibrinogen dRVVT Confirm Interp Factor V Activity POC ABG pH POC ABG pCO2 POC ABG pO2 ABG pO2 ABG HCO3 ABG Hemoglobin Oxyhemoglobin Sodium Potassium Chloride Carbon Dioxide BUN Creatinine Glucose POC Glucose 151 H 149 H 153 H Lactic Acid Calcium Phosphorus Magnesium Direct Bilirubin AST ALT Alkaline Phosphatase Lactate Dehydrogenase Troponin T C-Reactive Protein Total Protein Albumin Prealbumin Triglycerides Cholesterol LDL Cholesterol Direct HDL Cholesterol Urine pH Urine WBC (Auto) Urine Creatinine Urine Total Protein Fluid Total Protein Vancomycin Trough Rheumatoid Factor Complement C4 Miscellaneous Test Crossmatch 10/15/16 10/15/16 10/16/16 Unknown Unknown 00:02 WBC 23.4 H RBC 2.78 L Hgb 8.5 L Hct 25.7 L MCV MCH MCHC RDW 18.7 H Plt Count Lymph % (Auto) [place] % (Auto) Lymph # [place] # Baso # Seg Neutrophils % Seg Neuts % (Manual) Lymphocytes % (Manual) Monocytes % (Manual) Eosinophils % (Manual) Basophils % (Manual) Nucleated RBC % Seg Neutrophils # Seg Neutrophils # Man Lymphocytes # (Manual) Monocytes # (Manual) Eosinophils # (Manual) PT INR Fibrinogen dRVVT Confirm Interp Factor V Activity POC ABG pH POC ABG pCO2 POC ABG pO2 ABG pO2 ABG HCO3 ABG Hemoglobin Oxyhemoglobin Sodium Potassium Chloride Carbon Dioxide BUN 73 H Creatinine 2.3 H Glucose 120 H POC Glucose 137 H Lactic Acid Calcium Phosphorus Magnesium Direct Bilirubin AST ALT Alkaline Phosphatase Lactate Dehydrogenase Troponin T C-Reactive Protein Total Protein Albumin Prealbumin Triglycerides Cholesterol LDL Cholesterol Direct HDL Cholesterol Urine pH Urine WBC (Auto) Urine Creatinine Urine Total Protein Fluid Total Protein Vancomycin Trough Rheumatoid Factor Complement C4 Miscellaneous Test Crossmatch 10/16/16 10/16/16 10/16/16 05:44 06:25 06:25 WBC 22.5 H RBC 2.76 L Hgb 8.3 L Hct 25.2 L MCV MCH MCHC RDW 18.3 H Plt Count Lymph % (Auto) [place] % (Auto) Lymph # [place] # Baso # Seg Neutrophils % Seg Neuts % (Manual) Lymphocytes % (Manual) Monocytes % (Manual) Eosinophils % (Manual) Basophils % (Manual) Nucleated RBC % Seg Neutrophils # Seg Neutrophils # Man Lymphocytes # (Manual) Monocytes # (Manual) Eosinophils # (Manual) PT INR Fibrinogen dRVVT Confirm Interp Factor V Activity POC ABG pH POC ABG pCO2 POC ABG pO2 ABG pO2 ABG HCO3 ABG Hemoglobin Oxyhemoglobin Sodium Potassium Chloride Carbon Dioxide BUN 92 H Creatinine 3.0 H Glucose 138 H POC Glucose 110 H Lactic Acid Calcium Phosphorus Magnesium Direct Bilirubin AST ALT Alkaline Phosphatase Lactate Dehydrogenase Troponin T C-Reactive Protein Total Protein Albumin Prealbumin Triglycerides Cholesterol LDL Cholesterol Direct HDL Cholesterol Urine pH Urine WBC (Auto) Urine Creatinine Urine Total Protein Fluid Total Protein Vancomycin Trough Rheumatoid Factor Complement C4 Miscellaneous Test Crossmatch 10/16/16 10/16/16 10/16/16 11:27 11:48 17:36 WBC RBC Hgb Hct MCV MCH MCHC RDW Plt Count Lymph % (Auto) [place] % (Auto) Lymph # [place] # Baso # Seg Neutrophils % Seg Neuts % (Manual) Lymphocytes % (Manual) Monocytes % (Manual) Eosinophils % (Manual) Basophils % (Manual) Nucleated RBC % Seg Neutrophils # Seg Neutrophils # Man Lymphocytes # (Manual) Monocytes # (Manual) Eosinophils # (Manual) PT INR Fibrinogen dRVVT Confirm Interp Factor V Activity POC ABG pH 7.582 H POC ABG pCO2 27.4 L POC ABG pO2 110 H ABG pO2 ABG HCO3 ABG Hemoglobin Oxyhemoglobin Sodium Potassium Chloride Carbon Dioxide BUN Creatinine Glucose POC Glucose 121 H 133 H Lactic Acid Calcium Phosphorus Magnesium Direct Bilirubin AST ALT Alkaline Phosphatase Lactate Dehydrogenase Troponin T C-Reactive Protein Total Protein Albumin Prealbumin Triglycerides Cholesterol LDL Cholesterol Direct HDL Cholesterol Urine pH Urine WBC (Auto) Urine Creatinine Urine Total Protein Fluid Total Protein Vancomycin Trough Rheumatoid Factor Complement C4 Miscellaneous Test Crossmatch 10/16/16 10/17/16 10/17/16 20:48 04:24 04:24 WBC 21.4 H RBC 2.72 L Hgb 8.0 L Hct 25.2 L MCV MCH MCHC RDW 18.0 H Plt Count Lymph % (Auto) [place] % (Auto) Lymph # [place] # Baso # Seg Neutrophils % Seg Neuts % (Manual) Lymphocytes % (Manual) Monocytes % (Manual) Eosinophils % (Manual) Basophils % (Manual) Nucleated RBC % Seg Neutrophils # Seg Neutrophils # Man Lymphocytes # (Manual) Monocytes # (Manual) Eosinophils # (Manual) PT INR Fibrinogen dRVVT Confirm Interp Factor V Activity POC ABG pH 7.561 H POC ABG pCO2 24.4 L POC ABG pO2 77 L ABG pO2 ABG HCO3 ABG Hemoglobin Oxyhemoglobin Sodium 148 H Potassium Chloride Carbon Dioxide BUN 104 H Creatinine 3.0 H Glucose 149 H POC Glucose Lactic Acid Calcium Phosphorus Magnesium Direct Bilirubin AST ALT Alkaline Phosphatase 138 H Lactate Dehydrogenase Troponin T C-Reactive Protein Total Protein 6.2 L Albumin 1.5 L Prealbumin Triglycerides Cholesterol LDL Cholesterol Direct HDL Cholesterol Urine pH Urine WBC (Auto) Urine Creatinine Urine Total Protein Fluid Total Protein Vancomycin Trough Rheumatoid Factor Complement C4 Miscellaneous Test Crossmatch 10/17/16 10/17/16 10/17/16 06:02 12:17 17:14 WBC RBC Hgb Hct MCV MCH MCHC RDW Plt Count Lymph % (Auto) [place] % (Auto) Lymph # [place] # Baso # Seg Neutrophils % Seg Neuts % (Manual) Lymphocytes % (Manual) Monocytes % (Manual) Eosinophils % (Manual) Basophils % (Manual) Nucleated RBC % Seg Neutrophils # Seg Neutrophils # Man Lymphocytes # (Manual) Monocytes # (Manual) Eosinophils # (Manual) PT INR Fibrinogen dRVVT Confirm Interp Factor V Activity POC ABG pH POC ABG pCO2 POC ABG pO2 ABG pO2 ABG HCO3 ABG Hemoglobin Oxyhemoglobin Sodium Potassium Chloride Carbon Dioxide BUN Creatinine Glucose POC Glucose 170 H 167 H 126 H Lactic Acid Calcium Phosphorus Magnesium Direct Bilirubin AST ALT Alkaline Phosphatase Lactate Dehydrogenase Troponin T C-Reactive Protein Total Protein Albumin Prealbumin Triglycerides Cholesterol LDL Cholesterol Direct HDL Cholesterol Urine pH Urine WBC (Auto) Urine Creatinine Urine Total Protein Fluid Total Protein Vancomycin Trough Rheumatoid Factor Complement C4 Miscellaneous Test Crossmatch 10/17/16 10/18/16 10/18/16 23:17 04:00 04:00 WBC 20.7 H RBC 2.47 L Hgb 7.4 L Hct 22.9 L MCV MCH MCHC RDW 17.5 H Plt Count Lymph % (Auto) [place] % (Auto) Lymph # [place] # Baso # Seg Neutrophils % Seg Neuts % (Manual) Lymphocytes % (Manual) Monocytes % (Manual) Eosinophils % (Manual) Basophils % (Manual) Nucleated RBC % Seg Neutrophils # Seg Neutrophils # Man Lymphocytes # (Manual) Monocytes # (Manual) Eosinophils # (Manual) PT INR Fibrinogen dRVVT Confirm Interp Factor V Activity POC ABG pH POC ABG pCO2 POC ABG pO2 ABG pO2 ABG HCO3 ABG Hemoglobin Oxyhemoglobin Sodium 149 H Potassium Chloride 107.9 H Carbon Dioxide 20 L BUN 117 H Creatinine 3.2 H Glucose 119 H POC Glucose 121 H Lactic Acid Calcium Phosphorus Magnesium Direct Bilirubin AST ALT Alkaline Phosphatase Lactate Dehydrogenase Troponin T C-Reactive Protein Total Protein Albumin Prealbumin Triglycerides Cholesterol LDL Cholesterol Direct HDL Cholesterol Urine pH Urine WBC (Auto) Urine Creatinine Urine Total Protein Fluid Total Protein Vancomycin Trough Rheumatoid Factor Complement C4 Miscellaneous Test Crossmatch 10/18/16 10/18/16 10/18/16 05:23 10:46 17:30 WBC RBC Hgb Hct MCV MCH MCHC RDW Plt Count Lymph % (Auto) [place] % (Auto) Lymph # [place] # Baso # Seg Neutrophils % Seg Neuts % (Manual) Lymphocytes % (Manual) Monocytes % (Manual) Eosinophils % (Manual) Basophils % (Manual) Nucleated RBC % Seg Neutrophils # Seg Neutrophils # Man Lymphocytes # (Manual) Monocytes # (Manual) Eosinophils # (Manual) PT INR Fibrinogen dRVVT Confirm Interp Factor V Activity POC ABG pH POC ABG pCO2 POC ABG pO2 ABG pO2 ABG HCO3 ABG Hemoglobin Oxyhemoglobin Sodium Potassium Chloride Carbon Dioxide BUN Creatinine Glucose POC Glucose 119 H 155 H 124 H Lactic Acid Calcium Phosphorus Magnesium Direct Bilirubin AST ALT Alkaline Phosphatase Lactate Dehydrogenase Troponin T C-Reactive Protein Total Protein Albumin Prealbumin Triglycerides Cholesterol LDL Cholesterol Direct HDL Cholesterol Urine pH Urine WBC (Auto) Urine Creatinine Urine Total Protein Fluid Total Protein Vancomycin Trough Rheumatoid Factor Complement C4 Miscellaneous Test Crossmatch 10/19/16 10/19/16 10/19/16 04:00 04:00 05:25 WBC 17.4 H RBC 2.54 L Hgb 7.7 L Hct 23.6 L MCV MCH MCHC RDW 17.3 H Plt Count Lymph % (Auto) [place] % (Auto) Lymph # [place] # Baso # Seg Neutrophils % Seg Neuts % (Manual) Lymphocytes % (Manual) Monocytes % (Manual) Eosinophils % (Manual) Basophils % (Manual) Nucleated RBC % Seg Neutrophils # Seg Neutrophils # Man Lymphocytes # (Manual) Monocytes # (Manual) Eosinophils # (Manual) PT INR Fibrinogen dRVVT Confirm Interp Factor V Activity POC ABG pH POC ABG pCO2 POC ABG pO2 ABG pO2 ABG HCO3 ABG Hemoglobin Oxyhemoglobin Sodium Potassium Chloride Carbon Dioxide BUN 72 H Creatinine 2.1 H Glucose 116 H POC Glucose 119 H Lactic Acid Calcium Phosphorus Magnesium Direct Bilirubin AST ALT Alkaline Phosphatase Lactate Dehydrogenase Troponin T C-Reactive Protein Total Protein Albumin Prealbumin Triglycerides Cholesterol LDL Cholesterol Direct HDL Cholesterol Urine pH Urine WBC (Auto) Urine Creatinine Urine Total Protein Fluid Total Protein Vancomycin Trough Rheumatoid Factor Complement C4 Miscellaneous Test Crossmatch 10/19/16 10/19/16 10/20/16 11:46 23:59 06:00 WBC RBC Hgb Hct MCV MCH MCHC RDW Plt Count Lymph % (Auto) [place] % (Auto) Lymph # [place] # Baso # Seg Neutrophils % Seg Neuts % (Manual) Lymphocytes % (Manual) Monocytes % (Manual) Eosinophils % (Manual) Basophils % (Manual) Nucleated RBC % Seg Neutrophils # Seg Neutrophils # Man Lymphocytes # (Manual) Monocytes # (Manual) Eosinophils # (Manual) PT INR Fibrinogen dRVVT Confirm Interp Factor V Activity POC ABG pH POC ABG pCO2 POC ABG pO2 ABG pO2 ABG HCO3 ABG Hemoglobin Oxyhemoglobin Sodium Potassium Chloride Carbon Dioxide 17 L BUN 94 H Creatinine 2.7 H Glucose POC Glucose 116 H 117 H Lactic Acid Calcium Phosphorus Magnesium Direct Bilirubin AST ALT Alkaline Phosphatase Lactate Dehydrogenase Troponin T C-Reactive Protein Total Protein Albumin Prealbumin Triglycerides Cholesterol LDL Cholesterol Direct HDL Cholesterol Urine pH Urine WBC (Auto) Urine Creatinine Urine Total Protein Fluid Total Protein Vancomycin Trough Rheumatoid Factor Complement C4 Miscellaneous Test Crossmatch 10/20/16 10/20/16 10/20/16 06:00 11:49 16:00 WBC 19.7 H RBC 2.51 L Hgb 7.7 L Hct 23.5 L MCV MCH MCHC RDW 17.5 H Plt Count Lymph % (Auto) [place] % (Auto) Lymph # [place] # Baso # Seg Neutrophils % Seg Neuts % (Manual) Lymphocytes % (Manual) Monocytes % (Manual) Eosinophils % (Manual) Basophils % (Manual) Nucleated RBC % Seg Neutrophils # Seg Neutrophils # Man Lymphocytes # (Manual) Monocytes # (Manual) Eosinophils # (Manual) PT INR Fibrinogen dRVVT Confirm Interp Factor V Activity POC ABG pH POC ABG pCO2 POC ABG pO2 ABG pO2 ABG HCO3 ABG Hemoglobin Oxyhemoglobin Sodium Potassium Chloride Carbon Dioxide BUN Creatinine Glucose POC Glucose 117 H Lactic Acid Calcium Phosphorus Magnesium Direct Bilirubin AST ALT Alkaline Phosphatase Lactate Dehydrogenase Troponin T C-Reactive Protein Total Protein Albumin Prealbumin Triglycerides Cholesterol LDL Cholesterol Direct HDL Cholesterol Urine pH Urine WBC (Auto) Urine Creatinine Urine Total Protein Fluid Total Protein Vancomycin Trough Rheumatoid Factor Complement C4 Miscellaneous Test Flexitest 1 H Crossmatch 10/20/16 10/20/16 10/21/16 18:36 23:39 04:00 WBC RBC Hgb Hct MCV MCH MCHC RDW Plt Count Lymph % (Auto) [place] % (Auto) Lymph # [place] # Baso # Seg Neutrophils % Seg Neuts % (Manual) Lymphocytes % (Manual) Monocytes % (Manual) Eosinophils % (Manual) Basophils % (Manual) Nucleated RBC % Seg Neutrophils # Seg Neutrophils # Man Lymphocytes # (Manual) Monocytes # (Manual) Eosinophils # (Manual) PT INR Fibrinogen dRVVT Confirm Interp Factor V Activity POC ABG pH POC ABG pCO2 POC ABG pO2 ABG pO2 ABG HCO3 ABG Hemoglobin Oxyhemoglobin Sodium Potassium 5.4 H D Chloride Carbon Dioxide 15 L BUN 110 H Creatinine 3.0 H Glucose POC Glucose 127 H 114 H Lactic Acid Calcium Phosphorus Magnesium Direct Bilirubin AST ALT Alkaline Phosphatase Lactate Dehydrogenase Troponin T C-Reactive Protein Total Protein Albumin Prealbumin Triglycerides Cholesterol LDL Cholesterol Direct HDL Cholesterol Urine pH Urine WBC (Auto) Urine Creatinine Urine Total Protein Fluid Total Protein Vancomycin Trough Rheumatoid Factor Complement C4 Miscellaneous Test Crossmatch 10/21/16 10/21/16 10/22/16 05:54 23:46 05:18 WBC RBC Hgb Hct MCV MCH MCHC RDW Plt Count Lymph % (Auto) [place] % (Auto) Lymph # [place] # Baso # Seg Neutrophils % Seg Neuts % (Manual) Lymphocytes % (Manual) Monocytes % (Manual) Eosinophils % (Manual) Basophils % (Manual) Nucleated RBC % Seg Neutrophils # Seg Neutrophils # Man Lymphocytes # (Manual) Monocytes # (Manual) Eosinophils # (Manual) PT INR Fibrinogen dRVVT Confirm Interp Factor V Activity POC ABG pH POC ABG pCO2 POC ABG pO2 ABG pO2 ABG HCO3 ABG Hemoglobin Oxyhemoglobin Sodium Potassium Chloride Carbon Dioxide BUN Creatinine Glucose POC Glucose 119 H 108 H 109 H Lactic Acid Calcium Phosphorus Magnesium Direct Bilirubin AST ALT Alkaline Phosphatase Lactate Dehydrogenase Troponin T C-Reactive Protein Total Protein Albumin Prealbumin Triglycerides Cholesterol LDL Cholesterol Direct HDL Cholesterol Urine pH Urine WBC (Auto) Urine Creatinine Urine Total Protein Fluid Total Protein Vancomycin Trough Rheumatoid Factor Complement C4 Miscellaneous Test Crossmatch 10/22/16 10/22/16 10/22/16 06:40 06:40 06:40 WBC 14.0 H RBC 2.03 L Hgb 7.0 L Hct 20.5 L MCV 98 H MCH 34 H MCHC 35 H RDW 17.8 H Plt Count Lymph % (Auto) [place] % (Auto) 9.9 H Lymph # [place] # 1.4 H Baso # 0.2 H Seg Neutrophils % 72.0 H Seg Neuts % (Manual) Lymphocytes % (Manual) Monocytes % (Manual) Eosinophils % (Manual) Basophils % (Manual) Nucleated RBC % Seg Neutrophils # 10.0 H Seg Neutrophils # Man Lymphocytes # (Manual) Monocytes # (Manual) Eosinophils # (Manual) PT INR Fibrinogen dRVVT Confirm Interp Factor V Activity POC ABG pH POC ABG pCO2 POC ABG pO2 ABG pO2 ABG HCO3 ABG Hemoglobin Oxyhemoglobin Sodium 130 L D Potassium Chloride 92.4 L Carbon Dioxide 20 L BUN 50 H Creatinine 1.6 H Glucose 589 H* POC Glucose Lactic Acid Calcium 7.8 L D Phosphorus Magnesium 1.60 L Direct Bilirubin AST ALT Alkaline Phosphatase Lactate Dehydrogenase Troponin T C-Reactive Protein Total Protein Albumin Prealbumin Triglycerides Cholesterol LDL Cholesterol Direct HDL Cholesterol Urine pH Urine WBC (Auto) Urine Creatinine Urine Total Protein Fluid Total Protein Vancomycin Trough Rheumatoid Factor Complement C4 Miscellaneous Test Crossmatch 10/22/16 10/22/16 10/22/16 11:39 16:44 23:36 WBC RBC Hgb Hct MCV MCH MCHC RDW Plt Count Lymph % (Auto) [place] % (Auto) Lymph # [place] # Baso # Seg Neutrophils % Seg Neuts % (Manual) Lymphocytes % (Manual) Monocytes % (Manual) Eosinophils % (Manual) Basophils % (Manual) Nucleated RBC % Seg Neutrophils # Seg Neutrophils # Man Lymphocytes # (Manual) Monocytes # (Manual) Eosinophils # (Manual) PT INR Fibrinogen dRVVT Confirm Interp Factor V Activity POC ABG pH POC ABG pCO2 POC ABG pO2 ABG pO2 ABG HCO3 ABG Hemoglobin Oxyhemoglobin Sodium Potassium Chloride Carbon Dioxide BUN Creatinine Glucose POC Glucose 142 H 163 H 123 H Lactic Acid Calcium Phosphorus Magnesium Direct Bilirubin AST ALT Alkaline Phosphatase Lactate Dehydrogenase Troponin T C-Reactive Protein Total Protein Albumin Prealbumin Triglycerides Cholesterol LDL Cholesterol Direct HDL Cholesterol Urine pH Urine WBC (Auto) Urine Creatinine Urine Total Protein Fluid Total Protein Vancomycin Trough Rheumatoid Factor Complement C4 Miscellaneous Test Crossmatch 10/23/16 10/23/16 10/23/16 04:58 06:00 12:12 WBC RBC Hgb Hct MCV MCH MCHC RDW Plt Count Lymph % (Auto) [place] % (Auto) Lymph # [place] # Baso # Seg Neutrophils % Seg Neuts % (Manual) Lymphocytes % (Manual) Monocytes % (Manual) Eosinophils % (Manual) Basophils % (Manual) Nucleated RBC % Seg Neutrophils # Seg Neutrophils # Man Lymphocytes # (Manual) Monocytes # (Manual) Eosinophils # (Manual) PT INR Fibrinogen dRVVT Confirm Interp Factor V Activity POC ABG pH POC ABG pCO2 POC ABG pO2 ABG pO2 ABG HCO3 ABG Hemoglobin Oxyhemoglobin Sodium 133 L Potassium 3.5 L Chloride 96.1 L Carbon Dioxide 18 L BUN 76 H Creatinine 2.1 H Glucose POC Glucose 133 H 138 H Lactic Acid Calcium 8.3 L Phosphorus Magnesium Direct Bilirubin AST ALT Alkaline Phosphatase Lactate Dehydrogenase Troponin T C-Reactive Protein Total Protein Albumin Prealbumin Triglycerides Cholesterol LDL Cholesterol Direct HDL Cholesterol Urine pH Urine WBC (Auto) Urine Creatinine Urine Total Protein Fluid Total Protein Vancomycin Trough Rheumatoid Factor Complement C4 Miscellaneous Test Crossmatch 10/23/16 10/23/16 10/24/16 16:53 23:37 04:00 WBC RBC Hgb Hct MCV MCH MCHC RDW Plt Count Lymph % (Auto) [place] % (Auto) Lymph # [place] # Baso # Seg Neutrophils % Seg Neuts % (Manual) Lymphocytes % (Manual) Monocytes % (Manual) Eosinophils % (Manual) Basophils % (Manual) Nucleated RBC % Seg Neutrophils # Seg Neutrophils # Man Lymphocytes # (Manual) Monocytes # (Manual) Eosinophils # (Manual) PT INR Fibrinogen dRVVT Confirm Interp Factor V Activity POC ABG pH POC ABG pCO2 POC ABG pO2 ABG pO2 ABG HCO3 ABG Hemoglobin Oxyhemoglobin Sodium 131 L Potassium Chloride 94.5 L Carbon Dioxide 19 L BUN 97 H Creatinine 2.6 H Glucose 110 H POC Glucose 125 H 123 H Lactic Acid Calcium 8.3 L Phosphorus Magnesium Direct Bilirubin AST ALT Alkaline Phosphatase Lactate Dehydrogenase Troponin T C-Reactive Protein Total Protein Albumin Prealbumin Triglycerides Cholesterol LDL Cholesterol Direct HDL Cholesterol Urine pH Urine WBC (Auto) Urine Creatinine Urine Total Protein Fluid Total Protein Vancomycin Trough Rheumatoid Factor Complement C4 Miscellaneous Test Crossmatch 10/24/16 10/24/16 10/24/16 07:49 11:39 17:52 WBC RBC Hgb 6.0 L Hct 19.7 L* MCV MCH MCHC RDW Plt Count Lymph % (Auto) [place] % (Auto) Lymph # [place] # Baso # Seg Neutrophils % Seg Neuts % (Manual) Lymphocytes % (Manual) Monocytes % (Manual) Eosinophils % (Manual) Basophils % (Manual) Nucleated RBC % Seg Neutrophils # Seg Neutrophils # Man Lymphocytes # (Manual) Monocytes # (Manual) Eosinophils # (Manual) PT INR Fibrinogen dRVVT Confirm Interp Factor V Activity POC ABG pH POC ABG pCO2 POC ABG pO2 ABG pO2 ABG HCO3 ABG Hemoglobin Oxyhemoglobin Sodium Potassium Chloride Carbon Dioxide BUN Creatinine Glucose POC Glucose 106 H 158 H Lactic Acid Calcium Phosphorus Magnesium Direct Bilirubin AST ALT Alkaline Phosphatase Lactate Dehydrogenase Troponin T C-Reactive Protein Total Protein Albumin Prealbumin Triglycerides Cholesterol LDL Cholesterol Direct HDL Cholesterol Urine pH Urine WBC (Auto) Urine Creatinine Urine Total Protein Fluid Total Protein Vancomycin Trough Rheumatoid Factor Complement C4 Miscellaneous Test Crossmatch 10/24/16 10/24/16 10/24/16 20:00 22:27 Unknown WBC RBC Hgb 9.4 L D Hct 27.5 L D MCV MCH MCHC RDW Plt Count Lymph % (Auto) [place] % (Auto) Lymph # [place] # Baso # Seg Neutrophils % Seg Neuts % (Manual) Lymphocytes % (Manual) Monocytes % (Manual) Eosinophils % (Manual) Basophils % (Manual) Nucleated RBC % Seg Neutrophils # Seg Neutrophils # Man Lymphocytes # (Manual) Monocytes # (Manual) Eosinophils # (Manual) PT INR Fibrinogen dRVVT Confirm Interp Factor V Activity POC ABG pH POC ABG pCO2 POC ABG pO2 ABG pO2 ABG HCO3 ABG Hemoglobin Oxyhemoglobin Sodium Potassium Chloride Carbon Dioxide BUN Creatinine Glucose POC Glucose 125 H Lactic Acid Calcium Phosphorus Magnesium Direct Bilirubin AST ALT Alkaline Phosphatase Lactate Dehydrogenase Troponin T C-Reactive Protein Total Protein Albumin Prealbumin Triglycerides Cholesterol LDL Cholesterol Direct HDL Cholesterol Urine pH Urine WBC (Auto) Urine Creatinine Urine Total Protein Fluid Total Protein Vancomycin Trough Rheumatoid Factor Complement C4 Miscellaneous Test Crossmatch See Detail 10/25/16 10/25/16 10/25/16 04:00 04:00 04:00 WBC 14.2 H RBC 2.98 L Hgb 9.0 L Hct 26.2 L MCV MCH MCHC RDW 16.6 H Plt Count Lymph % (Auto) [place] % (Auto) 10.7 H Lymph # [place] # 1.5 H Baso # Seg Neutrophils % 73.6 H Seg Neuts % (Manual) Lymphocytes % (Manual) Monocytes % (Manual) Eosinophils % (Manual) Basophils % (Manual) Nucleated RBC % Seg Neutrophils # 10.5 H Seg Neutrophils # Man Lymphocytes # (Manual) Monocytes # (Manual) Eosinophils # (Manual) PT INR Fibrinogen dRVVT Confirm Interp Factor V Activity POC ABG pH POC ABG pCO2 POC ABG pO2 ABG pO2 ABG HCO3 ABG Hemoglobin Oxyhemoglobin Sodium 132 L Potassium Chloride 94.7 L Carbon Dioxide BUN 51 H Creatinine 1.6 H Glucose 130 H POC Glucose Lactic Acid Calcium 8.3 L Phosphorus 1.60 L D Magnesium Direct Bilirubin AST ALT Alkaline Phosphatase Lactate Dehydrogenase Troponin T C-Reactive Protein Total Protein Albumin Prealbumin Triglycerides Cholesterol LDL Cholesterol Direct HDL Cholesterol Urine pH Urine WBC (Auto) Urine Creatinine Urine Total Protein Fluid Total Protein Vancomycin Trough Rheumatoid Factor Complement C4 Miscellaneous Test Crossmatch 10/25/16 10/25/16 10/25/16 04:32 11:48 17:22 WBC RBC Hgb Hct MCV MCH MCHC RDW Plt Count Lymph % (Auto) [place] % (Auto) Lymph # [place] # Baso # Seg Neutrophils % Seg Neuts % (Manual) Lymphocytes % (Manual) Monocytes % (Manual) Eosinophils % (Manual) Basophils % (Manual) Nucleated RBC % Seg Neutrophils # Seg Neutrophils # Man Lymphocytes # (Manual) Monocytes # (Manual) Eosinophils # (Manual) PT INR Fibrinogen dRVVT Confirm Interp Factor V Activity POC ABG pH POC ABG pCO2 POC ABG pO2 ABG pO2 ABG HCO3 ABG Hemoglobin Oxyhemoglobin Sodium Potassium Chloride Carbon Dioxide BUN Creatinine Glucose POC Glucose 124 H 171 H 120 H Lactic Acid Calcium Phosphorus Magnesium Direct Bilirubin AST ALT Alkaline Phosphatase Lactate Dehydrogenase Troponin T C-Reactive Protein Total Protein Albumin Prealbumin Triglycerides Cholesterol LDL Cholesterol Direct HDL Cholesterol Urine pH Urine WBC (Auto) Urine Creatinine Urine Total Protein Fluid Total Protein Vancomycin Trough Rheumatoid Factor Complement C4 Miscellaneous Test Crossmatch 10/26/16 10/26/16 10/26/16 04:54 07:06 07:06 WBC 16.9 H RBC 3.06 L Hgb 9.1 L Hct 26.9 L MCV MCH MCHC RDW 16.9 H Plt Count Lymph % (Auto) [place] % (Auto) Lymph # [place] # Baso # Seg Neutrophils % Seg Neuts % (Manual) 71.0 H Lymphocytes % (Manual) 5.0 L Monocytes % (Manual) 12.0 H Eosinophils % (Manual) Basophils % (Manual) Nucleated RBC % Seg Neutrophils # Seg Neutrophils # Man 12.0 H Lymphocytes # (Manual) 0.8 L Monocytes # (Manual) 2.0 H Eosinophils # (Manual) PT INR Fibrinogen dRVVT Confirm Interp Factor V Activity POC ABG pH POC ABG pCO2 POC ABG pO2 ABG pO2 ABG HCO3 ABG Hemoglobin Oxyhemoglobin Sodium 135 L Potassium Chloride 97.1 L Carbon Dioxide BUN 73 H Creatinine 2.2 H Glucose 117 H POC Glucose 123 H Lactic Acid Calcium Phosphorus 1.70 L Magnesium Direct Bilirubin AST ALT Alkaline Phosphatase Lactate Dehydrogenase Troponin T C-Reactive Protein Total Protein Albumin Prealbumin Triglycerides Cholesterol LDL Cholesterol Direct HDL Cholesterol Urine pH Urine WBC (Auto) Urine Creatinine Urine Total Protein Fluid Total Protein Vancomycin Trough Rheumatoid Factor Complement C4 Miscellaneous Test Crossmatch 10/26/16 10/26/16 10/26/16 12:12 17:29 23:42 WBC RBC Hgb Hct MCV MCH MCHC RDW Plt Count Lymph % (Auto) [place] % (Auto) Lymph # [place] # Baso # Seg Neutrophils % Seg Neuts % (Manual) Lymphocytes % (Manual) Monocytes % (Manual) Eosinophils % (Manual) Basophils % (Manual) Nucleated RBC % Seg Neutrophils # Seg Neutrophils # Man Lymphocytes # (Manual) Monocytes # (Manual) Eosinophils # (Manual) PT INR Fibrinogen dRVVT Confirm Interp Factor V Activity POC ABG pH POC ABG pCO2 POC ABG pO2 ABG pO2 ABG HCO3 ABG Hemoglobin Oxyhemoglobin Sodium Potassium Chloride Carbon Dioxide BUN Creatinine Glucose POC Glucose 126 H 161 H 118 H Lactic Acid Calcium Phosphorus Magnesium Direct Bilirubin AST ALT Alkaline Phosphatase Lactate Dehydrogenase Troponin T C-Reactive Protein Total Protein Albumin Prealbumin Triglycerides Cholesterol LDL Cholesterol Direct HDL Cholesterol Urine pH Urine WBC (Auto) Urine Creatinine Urine Total Protein Fluid Total Protein Vancomycin Trough Rheumatoid Factor Complement C4 Miscellaneous Test Crossmatch 10/27/16 10/27/16 10/27/16 05:03 06:30 06:30 WBC 13.9 H RBC 3.09 L Hgb 9.2 L Hct 27.5 L MCV MCH MCHC RDW 17.0 H Plt Count Lymph % (Auto) [place] % (Auto) Lymph # [place] # Baso # Seg Neutrophils % Seg Neuts % (Manual) 78.0 H Lymphocytes % (Manual) Monocytes % (Manual) Eosinophils % (Manual) Basophils % (Manual) Nucleated RBC % 2.0 H Seg Neutrophils # Seg Neutrophils # Man 10.8 H Lymphocytes # (Manual) Monocytes # (Manual) 1.0 H Eosinophils # (Manual) PT INR Fibrinogen dRVVT Confirm Interp Factor V Activity POC ABG pH POC ABG pCO2 POC ABG pO2 ABG pO2 ABG HCO3 ABG Hemoglobin Oxyhemoglobin Sodium Potassium Chloride Carbon Dioxide BUN 40 H Creatinine 1.5 H Glucose 135 H POC Glucose 107 H Lactic Acid Calcium 8.3 L Phosphorus 1.30 L D Magnesium Direct Bilirubin AST ALT Alkaline Phosphatase Lactate Dehydrogenase Troponin T C-Reactive Protein Total Protein Albumin Prealbumin Triglycerides Cholesterol LDL Cholesterol Direct HDL Cholesterol Urine pH Urine WBC (Auto) Urine Creatinine Urine Total Protein Fluid Total Protein Vancomycin Trough Rheumatoid Factor Complement C4 Miscellaneous Test Crossmatch 10/27/16 10/27/16 10/27/16 13:27 18:07 23:40 WBC RBC Hgb Hct MCV MCH MCHC RDW Plt Count Lymph % (Auto) [place] % (Auto) Lymph # [place] # Baso # Seg Neutrophils % Seg Neuts % (Manual) Lymphocytes % (Manual) Monocytes % (Manual) Eosinophils % (Manual) Basophils % (Manual) Nucleated RBC % Seg Neutrophils # Seg Neutrophils # Man Lymphocytes # (Manual) Monocytes # (Manual) Eosinophils # (Manual) PT INR Fibrinogen dRVVT Confirm Interp Factor V Activity POC ABG pH POC ABG pCO2 POC ABG pO2 ABG pO2 ABG HCO3 ABG Hemoglobin Oxyhemoglobin Sodium Potassium Chloride Carbon Dioxide BUN Creatinine Glucose POC Glucose 117 H 121 H 118 H Lactic Acid Calcium Phosphorus Magnesium Direct Bilirubin AST ALT Alkaline Phosphatase Lactate Dehydrogenase Troponin T C-Reactive Protein Total Protein Albumin Prealbumin Triglycerides Cholesterol LDL Cholesterol Direct HDL Cholesterol Urine pH Urine WBC (Auto) Urine Creatinine Urine Total Protein Fluid Total Protein Vancomycin Trough Rheumatoid Factor Complement C4 Miscellaneous Test Crossmatch 10/28/16 10/28/16 10/28/16 05:48 06:45 06:45 WBC 14.7 H RBC 3.05 L Hgb 9.0 L Hct 26.9 L MCV MCH MCHC RDW 16.8 H Plt Count Lymph % (Auto) 8.2 L [place] % (Auto) 8.4 H Lymph # [place] # 1.2 H Baso # Seg Neutrophils % 81.9 H Seg Neuts % (Manual) Lymphocytes % (Manual) Monocytes % (Manual) Eosinophils % (Manual) Basophils % (Manual) Nucleated RBC % Seg Neutrophils # 12.1 H Seg Neutrophils # Man Lymphocytes # (Manual) Monocytes # (Manual) Eosinophils # (Manual) PT INR Fibrinogen dRVVT Confirm Interp Factor V Activity POC ABG pH POC ABG pCO2 POC ABG pO2 ABG pO2 ABG HCO3 ABG Hemoglobin Oxyhemoglobin Sodium Potassium Chloride Carbon Dioxide BUN 60 H Creatinine 1.9 H Glucose 120 H POC Glucose 114 H Lactic Acid Calcium Phosphorus Magnesium Direct Bilirubin AST ALT Alkaline Phosphatase Lactate Dehydrogenase Troponin T C-Reactive Protein Total Protein Albumin Prealbumin Triglycerides Cholesterol LDL Cholesterol Direct HDL Cholesterol Urine pH Urine WBC (Auto) Urine Creatinine Urine Total Protein Fluid Total Protein Vancomycin Trough Rheumatoid Factor Complement C4 Miscellaneous Test Crossmatch 10/28/16 10/28/16 10/29/16 17:08 23:50 05:10 WBC RBC Hgb Hct MCV MCH MCHC RDW Plt Count Lymph % (Auto) [place] % (Auto) Lymph # [place] # Baso # Seg Neutrophils % Seg Neuts % (Manual) Lymphocytes % (Manual) Monocytes % (Manual) Eosinophils % (Manual) Basophils % (Manual) Nucleated RBC % Seg Neutrophils # Seg Neutrophils # Man Lymphocytes # (Manual) Monocytes # (Manual) Eosinophils # (Manual) PT INR Fibrinogen dRVVT Confirm Interp Factor V Activity POC ABG pH POC ABG pCO2 POC ABG pO2 ABG pO2 ABG HCO3 ABG Hemoglobin Oxyhemoglobin Sodium Potassium Chloride Carbon Dioxide BUN Creatinine Glucose POC Glucose 109 H 110 H 124 H Lactic Acid Calcium Phosphorus Magnesium Direct Bilirubin AST ALT Alkaline Phosphatase Lactate Dehydrogenase Troponin T C-Reactive Protein Total Protein Albumin Prealbumin Triglycerides Cholesterol LDL Cholesterol Direct HDL Cholesterol Urine pH Urine WBC (Auto) Urine Creatinine Urine Total Protein Fluid Total Protein Vancomycin Trough Rheumatoid Factor Complement C4 Miscellaneous Test Crossmatch 10/29/16 10/29/16 10/29/16 07:45 07:45 12:19 WBC 14.7 H RBC 3.15 L Hgb 9.3 L Hct 28.9 L MCV MCH MCHC RDW 17.0 H Plt Count Lymph % (Auto) 11.9 L [place] % (Auto) 8.6 H Lymph # [place] # 1.3 H Baso # Seg Neutrophils % 78.1 H Seg Neuts % (Manual) Lymphocytes % (Manual) Monocytes % (Manual) Eosinophils % (Manual) Basophils % (Manual) Nucleated RBC % Seg Neutrophils # 11.4 H Seg Neutrophils # Man Lymphocytes # (Manual) Monocytes # (Manual) Eosinophils # (Manual) PT INR Fibrinogen dRVVT Confirm Interp Factor V Activity POC ABG pH POC ABG pCO2 POC ABG pO2 ABG pO2 ABG HCO3 ABG Hemoglobin Oxyhemoglobin Sodium Potassium 5.1 H Chloride Carbon Dioxide 19 L BUN 78 H Creatinine 2.2 H Glucose 116 H POC Glucose 118 H Lactic Acid Calcium Phosphorus Magnesium Direct Bilirubin AST ALT Alkaline Phosphatase Lactate Dehydrogenase Troponin T C-Reactive Protein Total Protein Albumin Prealbumin Triglycerides Cholesterol LDL Cholesterol Direct HDL Cholesterol Urine pH Urine WBC (Auto) Urine Creatinine Urine Total Protein Fluid Total Protein Vancomycin Trough Rheumatoid Factor Complement C4 Miscellaneous Test Crossmatch 10/29/16 10/30/16 10/30/16 17:49 01:52 03:28 WBC RBC Hgb Hct MCV MCH MCHC RDW Plt Count Lymph % (Auto) [place] % (Auto) Lymph # [place] # Baso # Seg Neutrophils % Seg Neuts % (Manual) Lymphocytes % (Manual) Monocytes % (Manual) Eosinophils % (Manual) Basophils % (Manual) Nucleated RBC % Seg Neutrophils # Seg Neutrophils # Man Lymphocytes # (Manual) Monocytes # (Manual) Eosinophils # (Manual) PT INR Fibrinogen dRVVT Confirm Interp Factor V Activity POC ABG pH POC ABG pCO2 POC ABG pO2 ABG pO2 ABG HCO3 ABG Hemoglobin Oxyhemoglobin Sodium Potassium 5.4 H Chloride 97.5 L Carbon Dioxide 19 L BUN 90 H Creatinine 2.5 H Glucose POC Glucose 120 H 129 H Lactic Acid Calcium Phosphorus 5.20 H Magnesium Direct Bilirubin AST ALT Alkaline Phosphatase Lactate Dehydrogenase Troponin T C-Reactive Protein Total Protein Albumin Prealbumin Triglycerides Cholesterol LDL Cholesterol Direct HDL Cholesterol Urine pH Urine WBC (Auto) Urine Creatinine Urine Total Protein Fluid Total Protein Vancomycin Trough Rheumatoid Factor Complement C4 Miscellaneous Test Crossmatch 10/30/16 10/30/16 10/30/16 03:28 08:19 08:19 WBC 11.6 H 15.9 H RBC 2.75 L 2.82 L Hgb 7.9 L 8.3 L Hct 24.2 L 25.2 L MCV MCH MCHC RDW 16.7 H 17.2 H Plt Count Lymph % (Auto) [place] % (Auto) 9.8 H Lymph # [place] # 1.1 H Baso # Seg Neutrophils % 74.2 H Seg Neuts % (Manual) Lymphocytes % (Manual) Monocytes % (Manual) Eosinophils % (Manual) Basophils % (Manual) Nucleated RBC % Seg Neutrophils # 8.6 H Seg Neutrophils # Man Lymphocytes # (Manual) Monocytes # (Manual) Eosinophils # (Manual) PT INR Fibrinogen dRVVT Confirm Interp Factor V Activity POC ABG pH POC ABG pCO2 POC ABG pO2 ABG pO2 ABG HCO3 ABG Hemoglobin Oxyhemoglobin Sodium Potassium 5.3 H Chloride 97.4 L Carbon Dioxide 19 L BUN 93 H Creatinine 2.6 H Glucose POC Glucose Lactic Acid Calcium Phosphorus Magnesium Direct Bilirubin AST ALT Alkaline Phosphatase Lactate Dehydrogenase Troponin T C-Reactive Protein Total Protein Albumin Prealbumin Triglycerides Cholesterol LDL Cholesterol Direct HDL Cholesterol Urine pH Urine WBC (Auto) Urine Creatinine Urine Total Protein Fluid Total Protein Vancomycin Trough Rheumatoid Factor Complement C4 Miscellaneous Test Crossmatch 10/30/16 10/30/16 10/31/16 17:11 23:56 00:40 WBC RBC Hgb Hct MCV MCH MCHC RDW Plt Count Lymph % (Auto) [place] % (Auto) Lymph # [place] # Baso # Seg Neutrophils % Seg Neuts % (Manual) Lymphocytes % (Manual) Monocytes % (Manual) Eosinophils % (Manual) Basophils % (Manual) Nucleated RBC % Seg Neutrophils # Seg Neutrophils # Man Lymphocytes # (Manual) Monocytes # (Manual) Eosinophils # (Manual) PT INR Fibrinogen dRVVT Confirm Interp Factor V Activity POC ABG pH POC ABG pCO2 POC ABG pO2 ABG pO2 ABG HCO3 ABG Hemoglobin Oxyhemoglobin Sodium Potassium Chloride Carbon Dioxide BUN Creatinine Glucose POC Glucose 106 H 117 H 120 H Lactic Acid Calcium Phosphorus Magnesium Direct Bilirubin AST ALT Alkaline Phosphatase Lactate Dehydrogenase Troponin T C-Reactive Protein Total Protein Albumin Prealbumin Triglycerides Cholesterol LDL Cholesterol Direct HDL Cholesterol Urine pH Urine WBC (Auto) Urine Creatinine Urine Total Protein Fluid Total Protein Vancomycin Trough Rheumatoid Factor Complement C4 Miscellaneous Test Crossmatch 10/31/16 10/31/16 10/31/16 05:43 07:15 07:15 WBC 12.1 H RBC 2.63 L Hgb 7.7 L Hct 23.3 L MCV MCH MCHC RDW 16.7 H Plt Count Lymph % (Auto) 11.7 L [place] % (Auto) 7.7 H Lymph # [place] # 0.9 H Baso # Seg Neutrophils % 78.0 H Seg Neuts % (Manual) Lymphocytes % (Manual) Monocytes % (Manual) Eosinophils % (Manual) Basophils % (Manual) Nucleated RBC % Seg Neutrophils # 9.4 H Seg Neutrophils # Man Lymphocytes # (Manual) Monocytes # (Manual) Eosinophils # (Manual) PT INR Fibrinogen dRVVT Confirm Interp Factor V Activity POC ABG pH POC ABG pCO2 POC ABG pO2 ABG pO2 ABG HCO3 ABG Hemoglobin Oxyhemoglobin Sodium Potassium Chloride 96.4 L Carbon Dioxide 21 L BUN 99 H Creatinine 2.6 H Glucose 144 H POC Glucose 125 H Lactic Acid Calcium Phosphorus 4.80 H Magnesium Direct Bilirubin AST ALT Alkaline Phosphatase Lactate Dehydrogenase Troponin T C-Reactive Protein Total Protein Albumin Prealbumin Triglycerides Cholesterol LDL Cholesterol Direct HDL Cholesterol Urine pH Urine WBC (Auto) Urine Creatinine Urine Total Protein Fluid Total Protein Vancomycin Trough Rheumatoid Factor Complement C4 Miscellaneous Test Crossmatch 10/31/16 10/31/16 11/01/16 11:46 18:34 00:20 WBC RBC Hgb Hct MCV MCH MCHC RDW Plt Count Lymph % (Auto) [place] % (Auto) Lymph # [place] # Baso # Seg Neutrophils % Seg Neuts % (Manual) Lymphocytes % (Manual) Monocytes % (Manual) Eosinophils % (Manual) Basophils % (Manual) Nucleated RBC % Seg Neutrophils # Seg Neutrophils # Man Lymphocytes # (Manual) Monocytes # (Manual) Eosinophils # (Manual) PT INR Fibrinogen dRVVT Confirm Interp Factor V Activity POC ABG pH POC ABG pCO2 POC ABG pO2 ABG pO2 ABG HCO3 ABG Hemoglobin Oxyhemoglobin Sodium Potassium Chloride Carbon Dioxide BUN Creatinine Glucose POC Glucose 159 H 140 H 132 H Lactic Acid Calcium Phosphorus Magnesium Direct Bilirubin AST ALT Alkaline Phosphatase Lactate Dehydrogenase Troponin T C-Reactive Protein Total Protein Albumin Prealbumin Triglycerides Cholesterol LDL Cholesterol Direct HDL Cholesterol Urine pH Urine WBC (Auto) Urine Creatinine Urine Total Protein Fluid Total Protein Vancomycin Trough Rheumatoid Factor Complement C4 Miscellaneous Test Crossmatch 11/01/16 11/01/16 11/01/16 04:55 04:55 06:11 WBC 11.2 H RBC 2.68 L Hgb 7.5 L Hct 23.7 L MCV MCH MCHC RDW 16.1 H Plt Count Lymph % (Auto) [place] % (Auto) 9.8 H Lymph # [place] # 1.1 H Baso # Seg Neutrophils % 70.8 H Seg Neuts % (Manual) Lymphocytes % (Manual) Monocytes % (Manual) Eosinophils % (Manual) Basophils % (Manual) Nucleated RBC % Seg Neutrophils # 7.9 H Seg Neutrophils # Man Lymphocytes # (Manual) Monocytes # (Manual) Eosinophils # (Manual) PT INR Fibrinogen dRVVT Confirm Interp Factor V Activity POC ABG pH POC ABG pCO2 POC ABG pO2 ABG pO2 ABG HCO3 ABG Hemoglobin Oxyhemoglobin Sodium Potassium 3.3 L D Chloride Carbon Dioxide BUN 61 H Creatinine 1.9 H Glucose 114 H POC Glucose 115 H Lactic Acid Calcium Phosphorus 1.80 L D Magnesium Direct Bilirubin AST ALT Alkaline Phosphatase Lactate Dehydrogenase Troponin T C-Reactive Protein Total Protein Albumin Prealbumin Triglycerides Cholesterol LDL Cholesterol Direct HDL Cholesterol Urine pH Urine WBC (Auto) Urine Creatinine Urine Total Protein Fluid Total Protein Vancomycin Trough Rheumatoid Factor Complement C4 Miscellaneous Test Crossmatch 11/01/16 11/01/16 11/01/16 12:29 18:23 23:58 WBC RBC Hgb Hct MCV MCH MCHC RDW Plt Count Lymph % (Auto) [place] % (Auto) Lymph # [place] # Baso # Seg Neutrophils % Seg Neuts % (Manual) Lymphocytes % (Manual) Monocytes % (Manual) Eosinophils % (Manual) Basophils % (Manual) Nucleated RBC % Seg Neutrophils # Seg Neutrophils # Man Lymphocytes # (Manual) Monocytes # (Manual) Eosinophils # (Manual) PT INR Fibrinogen dRVVT Confirm Interp Factor V Activity POC ABG pH POC ABG pCO2 POC ABG pO2 ABG pO2 ABG HCO3 ABG Hemoglobin Oxyhemoglobin Sodium Potassium Chloride Carbon Dioxide BUN Creatinine Glucose POC Glucose 142 H 143 H 128 H Lactic Acid Calcium Phosphorus Magnesium Direct Bilirubin AST ALT Alkaline Phosphatase Lactate Dehydrogenase Troponin T C-Reactive Protein Total Protein Albumin Prealbumin Triglycerides Cholesterol LDL Cholesterol Direct HDL Cholesterol Urine pH Urine WBC (Auto) Urine Creatinine Urine Total Protein Fluid Total Protein Vancomycin Trough Rheumatoid Factor Complement C4 Miscellaneous Test Crossmatch 11/02/16 11/02/16 11/02/16 04:16 05:29 11:58 WBC RBC Hgb Hct MCV MCH MCHC RDW Plt Count Lymph % (Auto) [place] % (Auto) Lymph # [place] # Baso # Seg Neutrophils % Seg Neuts % (Manual) Lymphocytes % (Manual) Monocytes % (Manual) Eosinophils % (Manual) Basophils % (Manual) Nucleated RBC % Seg Neutrophils # Seg Neutrophils # Man Lymphocytes # (Manual) Monocytes # (Manual) Eosinophils # (Manual) PT INR Fibrinogen dRVVT Confirm Interp Factor V Activity POC ABG pH POC ABG pCO2 POC ABG pO2 ABG pO2 ABG HCO3 ABG Hemoglobin Oxyhemoglobin Sodium Potassium 3.1 L Chloride Carbon Dioxide BUN 73 H Creatinine 2.3 H Glucose 112 H POC Glucose 135 H 149 H Lactic Acid Calcium Phosphorus Magnesium Direct Bilirubin AST ALT Alkaline Phosphatase Lactate Dehydrogenase Troponin T C-Reactive Protein Total Protein Albumin Prealbumin Triglycerides Cholesterol LDL Cholesterol Direct HDL Cholesterol Urine pH Urine WBC (Auto) Urine Creatinine Urine Total Protein Fluid Total Protein Vancomycin Trough Rheumatoid Factor Complement C4 Miscellaneous Test Crossmatch 11/02/16 11/02/16 11/03/16 17:42 22:54 06:00 WBC RBC Hgb Hct MCV MCH MCHC RDW Plt Count Lymph % (Auto) [place] % (Auto) Lymph # [place] # Baso # Seg Neutrophils % Seg Neuts % (Manual) Lymphocytes % (Manual) Monocytes % (Manual) Eosinophils % (Manual) Basophils % (Manual) Nucleated RBC % Seg Neutrophils # Seg Neutrophils # Man Lymphocytes # (Manual) Monocytes # (Manual) Eosinophils # (Manual) PT INR Fibrinogen dRVVT Confirm Interp Factor V Activity POC ABG pH POC ABG pCO2 POC ABG pO2 ABG pO2 ABG HCO3 ABG Hemoglobin Oxyhemoglobin Sodium Potassium Chloride 96.7 L Carbon Dioxide BUN 41 H Creatinine 1.5 H Glucose 145 H POC Glucose 182 H 115 H Lactic Acid Calcium Phosphorus 1.60 L D Magnesium 1.50 L Direct Bilirubin AST ALT Alkaline Phosphatase Lactate Dehydrogenase Troponin T C-Reactive Protein Total Protein Albumin Prealbumin Triglycerides Cholesterol LDL Cholesterol Direct HDL Cholesterol Urine pH Urine WBC (Auto) Urine Creatinine Urine Total Protein Fluid Total Protein Vancomycin Trough Rheumatoid Factor Complement C4 Miscellaneous Test Crossmatch 11/03/16 11/03/16 11/03/16 11:53 17:45 23:37 WBC RBC Hgb Hct MCV MCH MCHC RDW Plt Count Lymph % (Auto) [place] % (Auto) Lymph # [place] # Baso # Seg Neutrophils % Seg Neuts % (Manual) Lymphocytes % (Manual) Monocytes % (Manual) Eosinophils % (Manual) Basophils % (Manual) Nucleated RBC % Seg Neutrophils # Seg Neutrophils # Man Lymphocytes # (Manual) Monocytes # (Manual) Eosinophils # (Manual) PT INR Fibrinogen dRVVT Confirm Interp Factor V Activity POC ABG pH POC ABG pCO2 POC ABG pO2 ABG pO2 ABG HCO3 ABG Hemoglobin Oxyhemoglobin Sodium Potassium Chloride Carbon Dioxide BUN Creatinine Glucose POC Glucose 131 H 134 H 113 H Lactic Acid Calcium Phosphorus Magnesium Direct Bilirubin AST ALT Alkaline Phosphatase Lactate Dehydrogenase Troponin T C-Reactive Protein Total Protein Albumin Prealbumin Triglycerides Cholesterol LDL Cholesterol Direct HDL Cholesterol Urine pH Urine WBC (Auto) Urine Creatinine Urine Total Protein Fluid Total Protein Vancomycin Trough Rheumatoid Factor Complement C4 Miscellaneous Test Crossmatch 11/04/16 11/04/16 11/04/16 05:41 06:00 12:10 WBC RBC Hgb Hct MCV MCH MCHC RDW Plt Count Lymph % (Auto) [place] % (Auto) Lymph # [place] # Baso # Seg Neutrophils % Seg Neuts % (Manual) Lymphocytes % (Manual) Monocytes % (Manual) Eosinophils % (Manual) Basophils % (Manual) Nucleated RBC % Seg Neutrophils # Seg Neutrophils # Man Lymphocytes # (Manual) Monocytes # (Manual) Eosinophils # (Manual) PT INR Fibrinogen dRVVT Confirm Interp Factor V Activity POC ABG pH POC ABG pCO2 POC ABG pO2 ABG pO2 ABG HCO3 ABG Hemoglobin Oxyhemoglobin Sodium Potassium Chloride 96.7 L Carbon Dioxide BUN 52 H Creatinine 1.9 H Glucose 126 H POC Glucose 137 H 191 H Lactic Acid Calcium Phosphorus Magnesium Direct Bilirubin AST ALT Alkaline Phosphatase Lactate Dehydrogenase Troponin T C-Reactive Protein Total Protein Albumin Prealbumin Triglycerides Cholesterol LDL Cholesterol Direct HDL Cholesterol Urine pH Urine WBC (Auto) Urine Creatinine Urine Total Protein Fluid Total Protein Vancomycin Trough Rheumatoid Factor Complement C4 Miscellaneous Test Crossmatch 11/04/16 11/05/16 11/05/16 22:57 03:10 05:10 WBC RBC Hgb Hct MCV MCH MCHC RDW Plt Count Lymph % (Auto) [place] % (Auto) Lymph # [place] # Baso # Seg Neutrophils % Seg Neuts % (Manual) Lymphocytes % (Manual) Monocytes % (Manual) Eosinophils % (Manual) Basophils % (Manual) Nucleated RBC % Seg Neutrophils # Seg Neutrophils # Man Lymphocytes # (Manual) Monocytes # (Manual) Eosinophils # (Manual) PT INR Fibrinogen dRVVT Confirm Interp Factor V Activity POC ABG pH POC ABG pCO2 POC ABG pO2 ABG pO2 ABG HCO3 ABG Hemoglobin Oxyhemoglobin Sodium 136 L Potassium Chloride 97.2 L Carbon Dioxide BUN 32 H Creatinine 1.3 H Glucose 123 H POC Glucose 125 H 108 H Lactic Acid Calcium 7.8 L Phosphorus Magnesium Direct Bilirubin AST ALT Alkaline Phosphatase Lactate Dehydrogenase Troponin T C-Reactive Protein Total Protein Albumin Prealbumin Triglycerides Cholesterol LDL Cholesterol Direct HDL Cholesterol Urine pH Urine WBC (Auto) Urine Creatinine Urine Total Protein Fluid Total Protein Vancomycin Trough Rheumatoid Factor Complement C4 Miscellaneous Test Crossmatch 11/05/16 11/05/16 11/05/16 12:23 13:09 13:25 WBC RBC Hgb Hct MCV MCH MCHC RDW Plt Count Lymph % (Auto) [place] % (Auto) Lymph # [place] # Baso # Seg Neutrophils % Seg Neuts % (Manual) Lymphocytes % (Manual) Monocytes % (Manual) Eosinophils % (Manual) Basophils % (Manual) Nucleated RBC % Seg Neutrophils # Seg Neutrophils # Man Lymphocytes # (Manual) Monocytes # (Manual) Eosinophils # (Manual) PT INR Fibrinogen dRVVT Confirm Interp Factor V Activity POC ABG pH POC ABG pCO2 POC ABG pO2 ABG pO2 ABG HCO3 ABG Hemoglobin Oxyhemoglobin Sodium Potassium Chloride Carbon Dioxide BUN Creatinine Glucose POC Glucose 124 H Lactic Acid Calcium Phosphorus Magnesium Direct Bilirubin AST ALT Alkaline Phosphatase Lactate Dehydrogenase Troponin T C-Reactive Protein 11.40 H Total Protein Albumin Prealbumin Triglycerides Cholesterol LDL Cholesterol Direct HDL Cholesterol Urine pH 9.0 H Urine WBC (Auto) Urine Creatinine Urine Total Protein Fluid Total Protein Vancomycin Trough Rheumatoid Factor Complement C4 Miscellaneous Test Crossmatch 11/05/16 11/05/16 11/05/16 13:25 17:54 23:42 WBC RBC Hgb Hct MCV MCH MCHC RDW Plt Count Lymph % (Auto) [place] % (Auto) Lymph # [place] # Baso # Seg Neutrophils % Seg Neuts % (Manual) Lymphocytes % (Manual) Monocytes % (Manual) Eosinophils % (Manual) Basophils % (Manual) Nucleated RBC % Seg Neutrophils # Seg Neutrophils # Man Lymphocytes # (Manual) Monocytes # (Manual) Eosinophils # (Manual) PT INR Fibrinogen dRVVT Confirm Interp Factor V Activity POC ABG pH POC ABG pCO2 POC ABG pO2 ABG pO2 ABG HCO3 ABG Hemoglobin Oxyhemoglobin Sodium Potassium Chloride Carbon Dioxide BUN Creatinine Glucose POC Glucose 114 H 134 H Lactic Acid Calcium Phosphorus Magnesium Direct Bilirubin AST ALT Alkaline Phosphatase Lactate Dehydrogenase Troponin T C-Reactive Protein Total Protein Albumin Prealbumin Triglycerides Cholesterol LDL Cholesterol Direct HDL Cholesterol Urine pH Urine WBC (Auto) Urine Creatinine Urine Total Protein Fluid Total Protein Vancomycin Trough Rheumatoid Factor Complement C4 Miscellaneous Test Flexitest 1 H Crossmatch 11/06/16 11/06/16 11/06/16 04:56 06:25 06:25 WBC RBC 2.50 L Hgb 7.3 L Hct 22.5 L MCV MCH MCHC RDW 16.9 H Plt Count Lymph % (Auto) [place] % (Auto) 10.5 H Lymph # [place] # 1.1 H Baso # Seg Neutrophils % Seg Neuts % (Manual) Lymphocytes % (Manual) Monocytes % (Manual) Eosinophils % (Manual) Basophils % (Manual) Nucleated RBC % Seg Neutrophils # Seg Neutrophils # Man Lymphocytes # (Manual) Monocytes # (Manual) Eosinophils # (Manual) PT INR Fibrinogen dRVVT Confirm Interp Factor V Activity POC ABG pH POC ABG pCO2 POC ABG pO2 ABG pO2 ABG HCO3 ABG Hemoglobin Oxyhemoglobin Sodium Potassium 5.1 H Chloride 95.9 L Carbon Dioxide BUN 52 H Creatinine 1.8 H Glucose 117 H POC Glucose 120 H Lactic Acid Calcium Phosphorus Magnesium Direct Bilirubin AST 103 H ALT 77 H Alkaline Phosphatase 285 H Lactate Dehydrogenase Troponin T C-Reactive Protein Total Protein 6.2 L Albumin 1.8 L Prealbumin 0.180 L Triglycerides Cholesterol LDL Cholesterol Direct HDL Cholesterol Urine pH Urine WBC (Auto) Urine Creatinine Urine Total Protein Fluid Total Protein Vancomycin Trough Rheumatoid Factor Complement C4 Miscellaneous Test Crossmatch 11/06/16 11/06/16 11/06/16 11:56 17:14 23:52 WBC RBC Hgb Hct MCV MCH MCHC RDW Plt Count Lymph % (Auto) [place] % (Auto) Lymph # [place] # Baso # Seg Neutrophils % Seg Neuts % (Manual) Lymphocytes % (Manual) Monocytes % (Manual) Eosinophils % (Manual) Basophils % (Manual) Nucleated RBC % Seg Neutrophils # Seg Neutrophils # Man Lymphocytes # (Manual) Monocytes # (Manual) Eosinophils # (Manual) PT INR Fibrinogen dRVVT Confirm Interp Factor V Activity POC ABG pH POC ABG pCO2 POC ABG pO2 ABG pO2 ABG HCO3 ABG Hemoglobin Oxyhemoglobin Sodium Potassium Chloride Carbon Dioxide BUN Creatinine Glucose POC Glucose 141 H 125 H 130 H Lactic Acid Calcium Phosphorus Magnesium Direct Bilirubin AST ALT Alkaline Phosphatase Lactate Dehydrogenase Troponin T C-Reactive Protein Total Protein Albumin Prealbumin Triglycerides Cholesterol LDL Cholesterol Direct HDL Cholesterol Urine pH Urine WBC (Auto) Urine Creatinine Urine Total Protein Fluid Total Protein Vancomycin Trough Rheumatoid Factor Complement C4 Miscellaneous Test Crossmatch 11/07/16 11/07/16 11/07/16 06:30 06:30 09:37 WBC RBC 2.18 L Hgb 6.3 L Hct 19.7 L* MCV MCH MCHC RDW 16.8 H Plt Count Lymph % (Auto) [place] % (Auto) 10.0 H Lymph # [place] # 1.0 H Baso # Seg Neutrophils % Seg Neuts % (Manual) Lymphocytes % (Manual) Monocytes % (Manual) Eosinophils % (Manual) Basophils % (Manual) Nucleated RBC % Seg Neutrophils # Seg Neutrophils # Man Lymphocytes # (Manual) Monocytes # (Manual) Eosinophils # (Manual) PT INR Fibrinogen dRVVT Confirm Interp Factor V Activity POC ABG pH POC ABG pCO2 POC ABG pO2 ABG pO2 ABG HCO3 ABG Hemoglobin Oxyhemoglobin Sodium 135 L Potassium Chloride 95.6 L Carbon Dioxide BUN 70 H Creatinine 2.0 H Glucose 126 H POC Glucose Lactic Acid Calcium Phosphorus Magnesium Direct Bilirubin AST ALT Alkaline Phosphatase Lactate Dehydrogenase Troponin T C-Reactive Protein Total Protein Albumin Prealbumin Triglycerides Cholesterol LDL Cholesterol Direct HDL Cholesterol Urine pH Urine WBC (Auto) Urine Creatinine Urine Total Protein Fluid Total Protein Vancomycin Trough Rheumatoid Factor Complement C4 Miscellaneous Test Crossmatch See Detail 11/07/16 11/07/16 11/07/16 12:52 18:51 21:26 WBC RBC Hgb Hct MCV MCH MCHC RDW Plt Count Lymph % (Auto) [place] % (Auto) Lymph # [place] # Baso # Seg Neutrophils % Seg Neuts % (Manual) Lymphocytes % (Manual) Monocytes % (Manual) Eosinophils % (Manual) Basophils % (Manual) Nucleated RBC % Seg Neutrophils # Seg Neutrophils # Man Lymphocytes # (Manual) Monocytes # (Manual) Eosinophils # (Manual) PT INR Fibrinogen dRVVT Confirm Interp Factor V Activity POC ABG pH 7.523 H POC ABG pCO2 34.6 L POC ABG pO2 53 L ABG pO2 ABG HCO3 ABG Hemoglobin Oxyhemoglobin Sodium Potassium Chloride Carbon Dioxide BUN Creatinine Glucose POC Glucose 142 H 155 H Lactic Acid Calcium Phosphorus Magnesium Direct Bilirubin AST ALT Alkaline Phosphatase Lactate Dehydrogenase Troponin T C-Reactive Protein Total Protein Albumin Prealbumin Triglycerides Cholesterol LDL Cholesterol Direct HDL Cholesterol Urine pH Urine WBC (Auto) Urine Creatinine Urine Total Protein Fluid Total Protein Vancomycin Trough Rheumatoid Factor Complement C4 Miscellaneous Test Crossmatch 11/07/16 11/08/16 11/08/16 21:34 13:03 23:37 WBC RBC 2.63 L Hgb 7.7 L Hct 22.7 L MCV MCH MCHC RDW 17.0 H Plt Count Lymph % (Auto) [place] % (Auto) Lymph # [place] # Baso # Seg Neutrophils % Seg Neuts % (Manual) Lymphocytes % (Manual) Monocytes % (Manual) Eosinophils % (Manual) Basophils % (Manual) Nucleated RBC % Seg Neutrophils # Seg Neutrophils # Man Lymphocytes # (Manual) Monocytes # (Manual) Eosinophils # (Manual) PT INR Fibrinogen dRVVT Confirm Interp Factor V Activity POC ABG pH 7.478 H POC ABG pCO2 34.0 L POC ABG pO2 50 L ABG pO2 ABG HCO3 ABG Hemoglobin Oxyhemoglobin Sodium Potassium Chloride Carbon Dioxide BUN Creatinine Glucose POC Glucose 113 H Lactic Acid Calcium Phosphorus Magnesium Direct Bilirubin AST ALT Alkaline Phosphatase Lactate Dehydrogenase Troponin T C-Reactive Protein Total Protein Albumin Prealbumin Triglycerides Cholesterol LDL Cholesterol Direct HDL Cholesterol Urine pH Urine WBC (Auto) Urine Creatinine Urine Total Protein Fluid Total Protein Vancomycin Trough Rheumatoid Factor Complement C4 Miscellaneous Test Crossmatch 11/09/16 11/09/16 11/09/16 04:35 10:15 18:21 WBC RBC 2.68 L Hgb 7.8 L Hct 23.3 L MCV MCH MCHC RDW 17.0 H Plt Count Lymph % (Auto) [place] % (Auto) 12.1 H Lymph # [place] # 1.1 H Baso # Seg Neutrophils % Seg Neuts % (Manual) Lymphocytes % (Manual) Monocytes % (Manual) Eosinophils % (Manual) Basophils % (Manual) Nucleated RBC % Seg Neutrophils # Seg Neutrophils # Man Lymphocytes # (Manual) Monocytes # (Manual) Eosinophils # (Manual) PT INR Fibrinogen dRVVT Confirm Interp Factor V Activity POC ABG pH POC ABG pCO2 POC ABG pO2 ABG pO2 ABG HCO3 ABG Hemoglobin Oxyhemoglobin Sodium Potassium Chloride Carbon Dioxide BUN 51 H Creatinine 1.8 H Glucose POC Glucose 60 L Lactic Acid Calcium 8.3 L Phosphorus Magnesium Direct Bilirubin AST ALT Alkaline Phosphatase Lactate Dehydrogenase Troponin T C-Reactive Protein Total Protein Albumin Prealbumin Triglycerides Cholesterol LDL Cholesterol Direct HDL Cholesterol Urine pH Urine WBC (Auto) Urine Creatinine Urine Total Protein Fluid Total Protein Vancomycin Trough Rheumatoid Factor Complement C4 Miscellaneous Test Crossmatch 11/09/16 11/10/16 11/10/16 18:55 07:00 11:51 WBC RBC Hgb Hct MCV MCH MCHC RDW Plt Count Lymph % (Auto) [place] % (Auto) Lymph # [place] # Baso # Seg Neutrophils % Seg Neuts % (Manual) Lymphocytes % (Manual) Monocytes % (Manual) Eosinophils % (Manual) Basophils % (Manual) Nucleated RBC % Seg Neutrophils # Seg Neutrophils # Man Lymphocytes # (Manual) Monocytes # (Manual) Eosinophils # (Manual) PT INR Fibrinogen dRVVT Confirm Interp Factor V Activity POC ABG pH POC ABG pCO2 POC ABG pO2 ABG pO2 ABG HCO3 ABG Hemoglobin Oxyhemoglobin Sodium Potassium 3.0 L D Chloride 97.4 L Carbon Dioxide BUN 28 H Creatinine 1.3 H Glucose POC Glucose 68 L 120 H Lactic Acid Calcium 7.8 L Phosphorus Magnesium Direct Bilirubin AST ALT Alkaline Phosphatase Lactate Dehydrogenase Troponin T C-Reactive Protein Total Protein Albumin Prealbumin Triglycerides Cholesterol LDL Cholesterol Direct HDL Cholesterol Urine pH Urine WBC (Auto) Urine Creatinine Urine Total Protein Fluid Total Protein Vancomycin Trough Rheumatoid Factor Complement C4 Miscellaneous Test Crossmatch 11/10/16 11/11/16 11/11/16 14:20 06:59 06:59 WBC RBC 2.81 L Hgb 8.1 L Hct 24.4 L MCV MCH MCHC RDW 16.4 H Plt Count Lymph % (Auto) [place] % (Auto) 10.8 H Lymph # [place] # 1.0 H Baso # Seg Neutrophils % Seg Neuts % (Manual) Lymphocytes % (Manual) Monocytes % (Manual) Eosinophils % (Manual) Basophils % (Manual) Nucleated RBC % Seg Neutrophils # Seg Neutrophils # Man Lymphocytes # (Manual) Monocytes # (Manual) Eosinophils # (Manual) PT INR Fibrinogen dRVVT Confirm Interp Factor V Activity POC ABG pH POC ABG pCO2 POC ABG pO2 ABG pO2 ABG HCO3 ABG Hemoglobin Oxyhemoglobin Sodium Potassium Chloride Carbon Dioxide BUN Creatinine Glucose POC Glucose Lactic Acid Calcium Phosphorus Magnesium Direct Bilirubin AST ALT Alkaline Phosphatase Lactate Dehydrogenase 196 H Troponin T C-Reactive Protein Total Protein 6.1 L Albumin Prealbumin Triglycerides Cholesterol LDL Cholesterol Direct HDL Cholesterol Urine pH Urine WBC (Auto) Urine Creatinine Urine Total Protein Fluid Total Protein < 3.0 L Vancomycin Trough Rheumatoid Factor Complement C4 Miscellaneous Test Crossmatch 11/11/16 11/11/16 11/12/16 06:59 09:50 04:00 WBC RBC Hgb Hct MCV MCH MCHC RDW Plt Count Lymph % (Auto) [place] % (Auto) Lymph # [place] # Baso # Seg Neutrophils % Seg Neuts % (Manual) Lymphocytes % (Manual) Monocytes % (Manual) Eosinophils % (Manual) Basophils % (Manual) Nucleated RBC % Seg Neutrophils # Seg Neutrophils # Man Lymphocytes # (Manual) Monocytes # (Manual) Eosinophils # (Manual) PT INR 1.18 H Fibrinogen dRVVT Confirm Interp Factor V Activity POC ABG pH POC ABG pCO2 POC ABG pO2 ABG pO2 ABG HCO3 ABG Hemoglobin Oxyhemoglobin Sodium 136 L 133 L Potassium Chloride 96.1 L 94.8 L Carbon Dioxide 21 L BUN 37 H 42 H Creatinine 1.8 H 2.0 H Glucose POC Glucose Lactic Acid Calcium Phosphorus Magnesium Direct Bilirubin AST ALT Alkaline Phosphatase Lactate Dehydrogenase Troponin T C-Reactive Protein Total Protein Albumin Prealbumin Triglycerides Cholesterol LDL Cholesterol Direct HDL Cholesterol Urine pH Urine WBC (Auto) Urine Creatinine Urine Total Protein Fluid Total Protein Vancomycin Trough Rheumatoid Factor Complement C4 Miscellaneous Test Crossmatch 11/12/16 11/12/16 11/13/16 04:00 23:55 05:53 WBC RBC Hgb 8.9 L Hct 27.2 L MCV MCH MCHC RDW Plt Count Lymph % (Auto) [place] % (Auto) Lymph # [place] # Baso # Seg Neutrophils % Seg Neuts % (Manual) Lymphocytes % (Manual) Monocytes % (Manual) Eosinophils % (Manual) Basophils % (Manual) Nucleated RBC % Seg Neutrophils # Seg Neutrophils # Man Lymphocytes # (Manual) Monocytes # (Manual) Eosinophils # (Manual) PT INR Fibrinogen dRVVT Confirm Interp Factor V Activity POC ABG pH POC ABG pCO2 POC ABG pO2 ABG pO2 ABG HCO3 ABG Hemoglobin Oxyhemoglobin Sodium Potassium Chloride Carbon Dioxide BUN Creatinine Glucose POC Glucose 132 H 120 H Lactic Acid Calcium Phosphorus Magnesium Direct Bilirubin AST ALT Alkaline Phosphatase Lactate Dehydrogenase Troponin T C-Reactive Protein Total Protein Albumin Prealbumin Triglycerides Cholesterol LDL Cholesterol Direct HDL Cholesterol Urine pH Urine WBC (Auto) Urine Creatinine Urine Total Protein Fluid Total Protein Vancomycin Trough Rheumatoid Factor Complement C4 Miscellaneous Test Crossmatch 11/13/16 11/13/16 11/13/16 11:43 17:09 23:41 WBC RBC Hgb Hct MCV MCH MCHC RDW Plt Count Lymph % (Auto) [place] % (Auto) Lymph # [place] # Baso # Seg Neutrophils % Seg Neuts % (Manual) Lymphocytes % (Manual) Monocytes % (Manual) Eosinophils % (Manual) Basophils % (Manual) Nucleated RBC % Seg Neutrophils # Seg Neutrophils # Man Lymphocytes # (Manual) Monocytes # (Manual) Eosinophils # (Manual) PT INR Fibrinogen dRVVT Confirm Interp Factor V Activity POC ABG pH POC ABG pCO2 POC ABG pO2 ABG pO2 ABG HCO3 ABG Hemoglobin Oxyhemoglobin Sodium Potassium Chloride Carbon Dioxide BUN Creatinine Glucose POC Glucose 114 H 113 H 108 H Lactic Acid Calcium Phosphorus Magnesium Direct Bilirubin AST ALT Alkaline Phosphatase Lactate Dehydrogenase Troponin T C-Reactive Protein Total Protein Albumin Prealbumin Triglycerides Cholesterol LDL Cholesterol Direct HDL Cholesterol Urine pH Urine WBC (Auto) Urine Creatinine Urine Total Protein Fluid Total Protein Vancomycin Trough Rheumatoid Factor Complement C4 Miscellaneous Test Crossmatch 11/13/16 11/15/16 11/15/16 Unknown 00:37 03:30 WBC 11.2 H RBC 2.72 L Hgb 7.6 L Hct 23.4 L MCV MCH MCHC RDW 16.5 H Plt Count Lymph % (Auto) [place] % (Auto) Lymph # [place] # Baso # Seg Neutrophils % Seg Neuts % (Manual) Lymphocytes % (Manual) Monocytes % (Manual) Eosinophils % (Manual) Basophils % (Manual) Nucleated RBC % Seg Neutrophils # Seg Neutrophils # Man Lymphocytes # (Manual) Monocytes # (Manual) Eosinophils # (Manual) PT INR Fibrinogen dRVVT Confirm Interp Factor V Activity POC ABG pH POC ABG pCO2 POC ABG pO2 ABG pO2 ABG HCO3 ABG Hemoglobin Oxyhemoglobin Sodium 135 L Potassium Chloride 95.2 L Carbon Dioxide BUN 52 H Creatinine 2.2 H Glucose POC Glucose 108 H Lactic Acid Calcium Phosphorus Magnesium Direct Bilirubin AST ALT Alkaline Phosphatase Lactate Dehydrogenase Troponin T C-Reactive Protein Total Protein Albumin Prealbumin Triglycerides Cholesterol LDL Cholesterol Direct HDL Cholesterol Urine pH Urine WBC (Auto) Urine Creatinine Urine Total Protein Fluid Total Protein Vancomycin Trough Rheumatoid Factor Complement C4 Miscellaneous Test Crossmatch 11/15/16 11/15/16 11/15/16 03:30 05:04 11:50 WBC RBC Hgb Hct MCV MCH MCHC RDW Plt Count Lymph % (Auto) [place] % (Auto) Lymph # [place] # Baso # Seg Neutrophils % Seg Neuts % (Manual) Lymphocytes % (Manual) Monocytes % (Manual) Eosinophils % (Manual) Basophils % (Manual) Nucleated RBC % Seg Neutrophils # Seg Neutrophils # Man Lymphocytes # (Manual) Monocytes # (Manual) Eosinophils # (Manual) PT INR Fibrinogen dRVVT Confirm Interp Factor V Activity POC ABG pH POC ABG pCO2 POC ABG pO2 ABG pO2 ABG HCO3 ABG Hemoglobin Oxyhemoglobin Sodium Potassium 3.4 L Chloride Carbon Dioxide BUN 25 H Creatinine 1.5 H Glucose 103 H POC Glucose 121 H 144 H Lactic Acid Calcium Phosphorus Magnesium Direct Bilirubin AST ALT Alkaline Phosphatase Lactate Dehydrogenase Troponin T C-Reactive Protein Total Protein Albumin Prealbumin Triglycerides Cholesterol LDL Cholesterol Direct HDL Cholesterol Urine pH Urine WBC (Auto) Urine Creatinine Urine Total Protein Fluid Total Protein Vancomycin Trough Rheumatoid Factor Complement C4 Miscellaneous Test Crossmatch 11/15/16 11/15/16 11/16/16 21:28 23:20 11:44 WBC RBC Hgb Hct MCV MCH MCHC RDW Plt Count Lymph % (Auto) [place] % (Auto) Lymph # [place] # Baso # Seg Neutrophils % Seg Neuts % (Manual) Lymphocytes % (Manual) Monocytes % (Manual) Eosinophils % (Manual) Basophils % (Manual) Nucleated RBC % Seg Neutrophils # Seg Neutrophils # Man Lymphocytes # (Manual) Monocytes # (Manual) Eosinophils # (Manual) PT INR Fibrinogen dRVVT Confirm Interp Factor V Activity POC ABG pH 7.462 H POC ABG pCO2 POC ABG pO2 71 L ABG pO2 ABG HCO3 ABG Hemoglobin Oxyhemoglobin Sodium Potassium Chloride Carbon Dioxide BUN Creatinine Glucose POC Glucose 116 H 133 H Lactic Acid Calcium Phosphorus Magnesium Direct Bilirubin AST ALT Alkaline Phosphatase Lactate Dehydrogenase Troponin T C-Reactive Protein Total Protein Albumin Prealbumin Triglycerides Cholesterol LDL Cholesterol Direct HDL Cholesterol Urine pH Urine WBC (Auto) Urine Creatinine Urine Total Protein Fluid Total Protein Vancomycin Trough Rheumatoid Factor Complement C4 Miscellaneous Test Crossmatch 11/16/16 11/16/16 11/16/16 12:20 17:05 23:35 WBC 11.7 H RBC 2.73 L Hgb 7.6 L Hct 23.7 L MCV MCH MCHC RDW 16.6 H Plt Count Lymph % (Auto) [place] % (Auto) Lymph # [place] # Baso # Seg Neutrophils % Seg Neuts % (Manual) Lymphocytes % (Manual) Monocytes % (Manual) Eosinophils % (Manual) Basophils % (Manual) Nucleated RBC % Seg Neutrophils # Seg Neutrophils # Man Lymphocytes # (Manual) Monocytes # (Manual) Eosinophils # (Manual) PT INR Fibrinogen dRVVT Confirm Interp Factor V Activity POC ABG pH POC ABG pCO2 POC ABG pO2 ABG pO2 ABG HCO3 ABG Hemoglobin Oxyhemoglobin Sodium Potassium Chloride Carbon Dioxide BUN Creatinine Glucose POC Glucose 154 H 125 H Lactic Acid Calcium Phosphorus Magnesium Direct Bilirubin AST ALT Alkaline Phosphatase Lactate Dehydrogenase Troponin T C-Reactive Protein Total Protein Albumin Prealbumin Triglycerides Cholesterol LDL Cholesterol Direct HDL Cholesterol Urine pH Urine WBC (Auto) Urine Creatinine Urine Total Protein Fluid Total Protein Vancomycin Trough Rheumatoid Factor Complement C4 Miscellaneous Test Crossmatch 11/17/16 11/17/16 11/17/16 03:20 03:20 03:20 WBC RBC 2.55 L Hgb 7.3 L Hct 21.9 L MCV MCH MCHC RDW 16.6 H Plt Count Lymph % (Auto) [place] % (Auto) 11.5 H Lymph # [place] # 1.1 H Baso # Seg Neutrophils % Seg Neuts % (Manual) Lymphocytes % (Manual) Monocytes % (Manual) Eosinophils % (Manual) Basophils % (Manual) Nucleated RBC % Seg Neutrophils # Seg Neutrophils # Man Lymphocytes # (Manual) Monocytes # (Manual) Eosinophils # (Manual) PT 16.8 H INR 1.37 H Fibrinogen dRVVT Confirm Interp Factor V Activity POC ABG pH POC ABG pCO2 POC ABG pO2 ABG pO2 ABG HCO3 ABG Hemoglobin Oxyhemoglobin Sodium Potassium 3.5 L Chloride Carbon Dioxide BUN 21 H Creatinine Glucose POC Glucose Lactic Acid Calcium 7.9 L Phosphorus Magnesium Direct Bilirubin AST ALT Alkaline Phosphatase Lactate Dehydrogenase Troponin T C-Reactive Protein Total Protein Albumin Prealbumin Triglycerides Cholesterol LDL Cholesterol Direct HDL Cholesterol Urine pH Urine WBC (Auto) Urine Creatinine Urine Total Protein Fluid Total Protein Vancomycin Trough Rheumatoid Factor Complement C4 Miscellaneous Test Crossmatch 11/17/16 11/17/16 11/17/16 06:34 11:21 21:22 WBC RBC Hgb Hct MCV MCH MCHC RDW Plt Count Lymph % (Auto) [place] % (Auto) Lymph # [place] # Baso # Seg Neutrophils % Seg Neuts % (Manual) Lymphocytes % (Manual) Monocytes % (Manual) Eosinophils % (Manual) Basophils % (Manual) Nucleated RBC % Seg Neutrophils # Seg Neutrophils # Man Lymphocytes # (Manual) Monocytes # (Manual) Eosinophils # (Manual) PT INR Fibrinogen dRVVT Confirm Interp Factor V Activity POC ABG pH 7.467 H POC ABG pCO2 POC ABG pO2 73 L ABG pO2 ABG HCO3 ABG Hemoglobin Oxyhemoglobin Sodium Potassium Chloride Carbon Dioxide BUN Creatinine Glucose POC Glucose 121 H 119 H Lactic Acid Calcium Phosphorus Magnesium Direct Bilirubin AST ALT Alkaline Phosphatase Lactate Dehydrogenase Troponin T C-Reactive Protein Total Protein Albumin Prealbumin Triglycerides Cholesterol LDL Cholesterol Direct HDL Cholesterol Urine pH Urine WBC (Auto) Urine Creatinine Urine Total Protein Fluid Total Protein Vancomycin Trough Rheumatoid Factor Complement C4 Miscellaneous Test Crossmatch 11/18/16 11/18/16 11/19/16 12:16 17:19 00:00 WBC RBC Hgb Hct MCV MCH MCHC RDW Plt Count Lymph % (Auto) [place] % (Auto) Lymph # [place] # Baso # Seg Neutrophils % Seg Neuts % (Manual) Lymphocytes % (Manual) Monocytes % (Manual) Eosinophils % (Manual) Basophils % (Manual) Nucleated RBC % Seg Neutrophils # Seg Neutrophils # Man Lymphocytes # (Manual) Monocytes # (Manual) Eosinophils # (Manual) PT INR Fibrinogen dRVVT Confirm Interp Factor V Activity POC ABG pH POC ABG pCO2 POC ABG pO2 ABG pO2 ABG HCO3 ABG Hemoglobin Oxyhemoglobin Sodium Potassium Chloride Carbon Dioxide BUN Creatinine Glucose POC Glucose 124 H 162 H 139 H Lactic Acid Calcium Phosphorus Magnesium Direct Bilirubin AST ALT Alkaline Phosphatase Lactate Dehydrogenase Troponin T C-Reactive Protein Total Protein Albumin Prealbumin Triglycerides Cholesterol LDL Cholesterol Direct HDL Cholesterol Urine pH Urine WBC (Auto) Urine Creatinine Urine Total Protein Fluid Total Protein Vancomycin Trough Rheumatoid Factor Complement C4 Miscellaneous Test Crossmatch 11/19/16 11/19/16 11/20/16 05:00 12:43 00:40 WBC RBC Hgb Hct MCV MCH MCHC RDW Plt Count Lymph % (Auto) [place] % (Auto) Lymph # [place] # Baso # Seg Neutrophils % Seg Neuts % (Manual) Lymphocytes % (Manual) Monocytes % (Manual) Eosinophils % (Manual) Basophils % (Manual) Nucleated RBC % Seg Neutrophils # Seg Neutrophils # Man Lymphocytes # (Manual) Monocytes # (Manual) Eosinophils # (Manual) PT INR Fibrinogen dRVVT Confirm Interp Factor V Activity POC ABG pH POC ABG pCO2 POC ABG pO2 ABG pO2 ABG HCO3 ABG Hemoglobin Oxyhemoglobin Sodium Potassium Chloride Carbon Dioxide BUN Creatinine Glucose POC Glucose 110 H 125 H 136 H Lactic Acid Calcium Phosphorus Magnesium Direct Bilirubin AST ALT Alkaline Phosphatase Lactate Dehydrogenase Troponin T C-Reactive Protein Total Protein Albumin Prealbumin Triglycerides Cholesterol LDL Cholesterol Direct HDL Cholesterol Urine pH Urine WBC (Auto) Urine Creatinine Urine Total Protein Fluid Total Protein Vancomycin Trough Rheumatoid Factor Complement C4 Miscellaneous Test Crossmatch 11/20/16 11/20/16 11/20/16 05:00 05:00 05:51 WBC 13.1 H RBC 2.74 L Hgb 7.7 L Hct 23.6 L MCV MCH MCHC RDW 16.9 H Plt Count Lymph % (Auto) [place] % (Auto) 10.8 H Lymph # [place] # 1.4 H Baso # Seg Neutrophils % Seg Neuts % (Manual) Lymphocytes % (Manual) Monocytes % (Manual) Eosinophils % (Manual) Basophils % (Manual) Nucleated RBC % Seg Neutrophils # 7.9 H Seg Neutrophils # Man Lymphocytes # (Manual) Monocytes # (Manual) Eosinophils # (Manual) PT INR Fibrinogen dRVVT Confirm Interp Factor V Activity POC ABG pH POC ABG pCO2 POC ABG pO2 ABG pO2 ABG HCO3 ABG Hemoglobin Oxyhemoglobin Sodium Potassium Chloride Carbon Dioxide BUN 31 H Creatinine 1.8 H Glucose 129 H POC Glucose 133 H Lactic Acid Calcium Phosphorus Magnesium Direct Bilirubin AST ALT Alkaline Phosphatase Lactate Dehydrogenase Troponin T C-Reactive Protein Total Protein Albumin Prealbumin Triglycerides Cholesterol LDL Cholesterol Direct HDL Cholesterol Urine pH Urine WBC (Auto) Urine Creatinine Urine Total Protein Fluid Total Protein Vancomycin Trough Rheumatoid Factor Complement C4 Miscellaneous Test Crossmatch 11/20/16 11/20/16 11/21/16 12:40 18:10 01:20 WBC RBC Hgb Hct MCV MCH MCHC RDW Plt Count Lymph % (Auto) [place] % (Auto) Lymph # [place] # Baso # Seg Neutrophils % Seg Neuts % (Manual) Lymphocytes % (Manual) Monocytes % (Manual) Eosinophils % (Manual) Basophils % (Manual) Nucleated RBC % Seg Neutrophils # Seg Neutrophils # Man Lymphocytes # (Manual) Monocytes # (Manual) Eosinophils # (Manual) PT INR Fibrinogen dRVVT Confirm Interp Factor V Activity POC ABG pH POC ABG pCO2 POC ABG pO2 ABG pO2 ABG HCO3 ABG Hemoglobin Oxyhemoglobin Sodium Potassium Chloride Carbon Dioxide BUN Creatinine Glucose POC Glucose 134 H 138 H 136 H Lactic Acid Calcium Phosphorus Magnesium Direct Bilirubin AST ALT Alkaline Phosphatase Lactate Dehydrogenase Troponin T C-Reactive Protein Total Protein Albumin Prealbumin Triglycerides Cholesterol LDL Cholesterol Direct HDL Cholesterol Urine pH Urine WBC (Auto) Urine Creatinine Urine Total Protein Fluid Total Protein Vancomycin Trough Rheumatoid Factor Complement C4 Miscellaneous Test Crossmatch 11/21/16 11/21/16 11/21/16 07:04 07:45 07:45 WBC 22.0 H RBC 2.91 L Hgb 8.2 L Hct 25.4 L MCV MCH MCHC RDW 17.1 H Plt Count Lymph % (Auto) [place] % (Auto) Lymph # [place] # Baso # Seg Neutrophils % Seg Neuts % (Manual) Lymphocytes % (Manual) 8.0 L Monocytes % (Manual) Eosinophils % (Manual) Basophils % (Manual) Nucleated RBC % Seg Neutrophils # Seg Neutrophils # Man 14.7 H Lymphocytes # (Manual) Monocytes # (Manual) 1.1 H Eosinophils # (Manual) PT INR Fibrinogen dRVVT Confirm Interp Factor V Activity POC ABG pH POC ABG pCO2 POC ABG pO2 ABG pO2 ABG HCO3 ABG Hemoglobin Oxyhemoglobin Sodium Potassium Chloride Carbon Dioxide BUN 42 H Creatinine 2.0 H Glucose POC Glucose 108 H Lactic Acid Calcium Phosphorus Magnesium Direct Bilirubin AST ALT Alkaline Phosphatase Lactate Dehydrogenase Troponin T C-Reactive Protein Total Protein Albumin Prealbumin Triglycerides Cholesterol LDL Cholesterol Direct HDL Cholesterol Urine pH Urine WBC (Auto) Urine Creatinine Urine Total Protein Fluid Total Protein Vancomycin Trough Rheumatoid Factor Complement C4 Miscellaneous Test Crossmatch 11/21/16 11/21/16 11/21/16 08:38 10:09 11:20 WBC RBC Hgb Hct MCV MCH MCHC RDW Plt Count Lymph % (Auto) [place] % (Auto) Lymph # [place] # Baso # Seg Neutrophils % Seg Neuts % (Manual) Lymphocytes % (Manual) Monocytes % (Manual) Eosinophils % (Manual) Basophils % (Manual) Nucleated RBC % Seg Neutrophils # Seg Neutrophils # Man Lymphocytes # (Manual) Monocytes # (Manual) Eosinophils # (Manual) PT INR Fibrinogen dRVVT Confirm Interp Factor V Activity POC ABG pH 7.346 L POC ABG pCO2 34.4 L POC ABG pO2 314 H ABG pO2 ABG HCO3 ABG Hemoglobin Oxyhemoglobin Sodium Potassium Chloride Carbon Dioxide BUN Creatinine Glucose POC Glucose 195 H 153 H Lactic Acid Calcium Phosphorus Magnesium Direct Bilirubin AST ALT Alkaline Phosphatase Lactate Dehydrogenase Troponin T C-Reactive Protein Total Protein Albumin Prealbumin Triglycerides Cholesterol LDL Cholesterol Direct HDL Cholesterol Urine pH Urine WBC (Auto) Urine Creatinine Urine Total Protein Fluid Total Protein Vancomycin Trough Rheumatoid Factor Complement C4 Miscellaneous Test Crossmatch 11/21/16 11/22/16 11/22/16 23:37 04:48 05:00 WBC 29.7 H RBC 2.73 L Hgb 7.5 L Hct 24.2 L MCV MCH 27 L MCHC RDW 17.4 H Plt Count Lymph % (Auto) [place] % (Auto) Lymph # [place] # Baso # Seg Neutrophils % Seg Neuts % (Manual) Lymphocytes % (Manual) 7.0 L Monocytes % (Manual) Eosinophils % (Manual) Basophils % (Manual) Nucleated RBC % Seg Neutrophils # Seg Neutrophils # Man 15.4 H Lymphocytes # (Manual) Monocytes # (Manual) Eosinophils # (Manual) PT INR Fibrinogen dRVVT Confirm Interp Factor V Activity POC ABG pH POC ABG pCO2 24.6 L POC ABG pO2 189 H ABG pO2 ABG HCO3 ABG Hemoglobin Oxyhemoglobin Sodium Potassium Chloride Carbon Dioxide BUN Creatinine Glucose POC Glucose 65 L Lactic Acid Calcium Phosphorus Magnesium Direct Bilirubin AST ALT Alkaline Phosphatase Lactate Dehydrogenase Troponin T C-Reactive Protein Total Protein Albumin Prealbumin Triglycerides Cholesterol LDL Cholesterol Direct HDL Cholesterol Urine pH Urine WBC (Auto) Urine Creatinine Urine Total Protein Fluid Total Protein Vancomycin Trough Rheumatoid Factor Complement C4 Miscellaneous Test Crossmatch 11/22/16 11/23/16 11/23/16 05:00 03:44 04:06 WBC RBC 2.52 L Hgb 7.2 L Hct 21.5 L MCV MCH MCHC RDW 17.1 H Plt Count Lymph % (Auto) [place] % (Auto) 12.4 H Lymph # [place] # 1.4 H Baso # Seg Neutrophils % Seg Neuts % (Manual) Lymphocytes % (Manual) Monocytes % (Manual) Eosinophils % (Manual) Basophils % (Manual) Nucleated RBC % Seg Neutrophils # Seg Neutrophils # Man Lymphocytes # (Manual) Monocytes # (Manual) Eosinophils # (Manual) PT INR Fibrinogen dRVVT Confirm Interp Factor V Activity POC ABG pH 7.493 H POC ABG pCO2 29.5 L POC ABG pO2 49 L ABG pO2 ABG HCO3 ABG Hemoglobin Oxyhemoglobin Sodium 134 L Potassium Chloride 95.9 L Carbon Dioxide 14 L D BUN 51 H Creatinine 2.6 H Glucose POC Glucose Lactic Acid Calcium Phosphorus Magnesium Direct Bilirubin AST ALT Alkaline Phosphatase Lactate Dehydrogenase Troponin T C-Reactive Protein Total Protein Albumin Prealbumin Triglycerides Cholesterol LDL Cholesterol Direct HDL Cholesterol Urine pH Urine WBC (Auto) Urine Creatinine Urine Total Protein Fluid Total Protein Vancomycin Trough Rheumatoid Factor Complement C4 Miscellaneous Test Crossmatch 11/23/16 11/23/16 11/24/16 04:06 11:29 06:39 WBC RBC Hgb Hct MCV MCH MCHC RDW Plt Count Lymph % (Auto) [place] % (Auto) Lymph # [place] # Baso # Seg Neutrophils % Seg Neuts % (Manual) Lymphocytes % (Manual) Monocytes % (Manual) Eosinophils % (Manual) Basophils % (Manual) Nucleated RBC % Seg Neutrophils # Seg Neutrophils # Man Lymphocytes # (Manual) Monocytes # (Manual) Eosinophils # (Manual) PT INR Fibrinogen dRVVT Confirm Interp Factor V Activity POC ABG pH POC ABG pCO2 POC ABG pO2 ABG pO2 ABG HCO3 ABG Hemoglobin Oxyhemoglobin Sodium 136 L Potassium Chloride 95.2 L Carbon Dioxide BUN 60 H Creatinine 2.9 H Glucose POC Glucose 69 L 305 H Lactic Acid Calcium Phosphorus Magnesium 1.60 L Direct Bilirubin AST ALT Alkaline Phosphatase Lactate Dehydrogenase Troponin T C-Reactive Protein Total Protein Albumin Prealbumin Triglycerides Cholesterol LDL Cholesterol Direct HDL Cholesterol Urine pH Urine WBC (Auto) Urine Creatinine Urine Total Protein Fluid Total Protein Vancomycin Trough Rheumatoid Factor Complement C4 Miscellaneous Test Crossmatch 11/24/16 11/24/16 11/24/16 06:43 08:08 08:08 WBC 11.2 H RBC 2.47 L Hgb 6.8 L Hct 20.6 L MCV MCH MCHC RDW 17.0 H Plt Count Lymph % (Auto) [place] % (Auto) 10.3 H Lymph # [place] # 1.2 H Baso # Seg Neutrophils % Seg Neuts % (Manual) Lymphocytes % (Manual) Monocytes % (Manual) Eosinophils % (Manual) Basophils % (Manual) Nucleated RBC % Seg Neutrophils # Seg Neutrophils # Man Lymphocytes # (Manual) Monocytes # (Manual) Eosinophils # (Manual) PT INR Fibrinogen dRVVT Confirm Interp Factor V Activity POC ABG pH POC ABG pCO2 POC ABG pO2 ABG pO2 ABG HCO3 ABG Hemoglobin Oxyhemoglobin Sodium 135 L Potassium Chloride 96.3 L Carbon Dioxide BUN 61 H Creatinine 3.1 H Glucose POC Glucose 62 L Lactic Acid Calcium 8.2 L Phosphorus Magnesium Direct Bilirubin AST ALT Alkaline Phosphatase Lactate Dehydrogenase Troponin T C-Reactive Protein Total Protein Albumin Prealbumin Triglycerides Cholesterol LDL Cholesterol Direct HDL Cholesterol Urine pH Urine WBC (Auto) Urine Creatinine Urine Total Protein Fluid Total Protein Vancomycin Trough Rheumatoid Factor Complement C4 Miscellaneous Test Crossmatch 11/24/16 11/24/16 11/24/16 08:34 11:20 12:41 WBC RBC Hgb Hct MCV MCH MCHC RDW Plt Count Lymph % (Auto) [place] % (Auto) Lymph # [place] # Baso # Seg Neutrophils % Seg Neuts % (Manual) Lymphocytes % (Manual) Monocytes % (Manual) Eosinophils % (Manual) Basophils % (Manual) Nucleated RBC % Seg Neutrophils # Seg Neutrophils # Man Lymphocytes # (Manual) Monocytes # (Manual) Eosinophils # (Manual) PT INR Fibrinogen dRVVT Confirm Interp Factor V Activity POC ABG pH POC ABG pCO2 POC ABG pO2 ABG pO2 ABG HCO3 ABG Hemoglobin Oxyhemoglobin Sodium Potassium Chloride Carbon Dioxide BUN Creatinine Glucose POC Glucose 108 H Lactic Acid Calcium Phosphorus Magnesium 1.60 L Direct Bilirubin AST ALT Alkaline Phosphatase Lactate Dehydrogenase Troponin T C-Reactive Protein Total Protein Albumin Prealbumin Triglycerides Cholesterol LDL Cholesterol Direct HDL Cholesterol Urine pH Urine WBC (Auto) Urine Creatinine Urine Total Protein Fluid Total Protein Vancomycin Trough Rheumatoid Factor Complement C4 Miscellaneous Test Crossmatch See Detail 11/25/16 11/25/16 11/25/16 00:03 04:42 04:42 WBC RBC 3.03 L Hgb 8.6 L Hct 25.3 L MCV MCH MCHC RDW 16.2 H Plt Count Lymph % (Auto) [place] % (Auto) 8.1 H Lymph # [place] # Baso # Seg Neutrophils % 71.3 H Seg Neuts % (Manual) Lymphocytes % (Manual) Monocytes % (Manual) Eosinophils % (Manual) Basophils % (Manual) Nucleated RBC % Seg Neutrophils # Seg Neutrophils # Man Lymphocytes # (Manual) Monocytes # (Manual) Eosinophils # (Manual) PT INR Fibrinogen dRVVT Confirm Interp Factor V Activity POC ABG pH POC ABG pCO2 POC ABG pO2 ABG pO2 ABG HCO3 ABG Hemoglobin Oxyhemoglobin Sodium Potassium Chloride Carbon Dioxide BUN 61 H Creatinine 3.0 H Glucose 102 H POC Glucose 113 H Lactic Acid Calcium 8.2 L Phosphorus Magnesium Direct Bilirubin AST ALT Alkaline Phosphatase 142 H Lactate Dehydrogenase Troponin T C-Reactive Protein Total Protein 5.7 L Albumin 1.5 L Prealbumin Triglycerides Cholesterol LDL Cholesterol Direct HDL Cholesterol Urine pH Urine WBC (Auto) Urine Creatinine Urine Total Protein Fluid Total Protein Vancomycin Trough Rheumatoid Factor Complement C4 Miscellaneous Test Crossmatch 11/25/16 11/25/16 11/25/16 05:12 11:31 14:12 WBC RBC Hgb Hct MCV MCH MCHC RDW Plt Count Lymph % (Auto) [place] % (Auto) Lymph # [place] # Baso # Seg Neutrophils % Seg Neuts % (Manual) Lymphocytes % (Manual) Monocytes % (Manual) Eosinophils % (Manual) Basophils % (Manual) Nucleated RBC % Seg Neutrophils # Seg Neutrophils # Man Lymphocytes # (Manual) Monocytes # (Manual) Eosinophils # (Manual) PT INR Fibrinogen dRVVT Confirm Interp Factor V Activity POC ABG pH 7.487 H POC ABG pCO2 POC ABG pO2 153 H ABG pO2 ABG HCO3 ABG Hemoglobin Oxyhemoglobin Sodium Potassium Chloride Carbon Dioxide BUN Creatinine Glucose POC Glucose 131 H 140 H Lactic Acid Calcium Phosphorus Magnesium Direct Bilirubin AST ALT Alkaline Phosphatase Lactate Dehydrogenase Troponin T C-Reactive Protein Total Protein Albumin Prealbumin Triglycerides Cholesterol LDL Cholesterol Direct HDL Cholesterol Urine pH Urine WBC (Auto) Urine Creatinine Urine Total Protein Fluid Total Protein Vancomycin Trough Rheumatoid Factor Complement C4 Miscellaneous Test Crossmatch 11/25/16 11/26/16 11/26/16 17:23 00:09 05:13 WBC RBC 2.94 L Hgb 8.4 L Hct 24.6 L MCV MCH MCHC RDW 16.4 H Plt Count Lymph % (Auto) [place] % (Auto) 12.3 H Lymph # [place] # 1.1 H Baso # Seg Neutrophils % Seg Neuts % (Manual) Lymphocytes % (Manual) Monocytes % (Manual) Eosinophils % (Manual) Basophils % (Manual) Nucleated RBC % Seg Neutrophils # Seg Neutrophils # Man Lymphocytes # (Manual) Monocytes # (Manual) Eosinophils # (Manual) PT INR Fibrinogen dRVVT Confirm Interp Factor V Activity POC ABG pH POC ABG pCO2 POC ABG pO2 ABG pO2 ABG HCO3 ABG Hemoglobin Oxyhemoglobin Sodium Potassium Chloride Carbon Dioxide BUN Creatinine Glucose POC Glucose 146 H 112 H Lactic Acid Calcium Phosphorus Magnesium Direct Bilirubin AST ALT Alkaline Phosphatase Lactate Dehydrogenase Troponin T C-Reactive Protein Total Protein Albumin Prealbumin Triglycerides Cholesterol LDL Cholesterol Direct HDL Cholesterol Urine pH Urine WBC (Auto) Urine Creatinine Urine Total Protein Fluid Total Protein Vancomycin Trough Rheumatoid Factor Complement C4 Miscellaneous Test Crossmatch 11/26/16 11/26/16 11/26/16 05:13 05:28 11:53 WBC RBC Hgb Hct MCV MCH MCHC RDW Plt Count Lymph % (Auto) [place] % (Auto) Lymph # [place] # Baso # Seg Neutrophils % Seg Neuts % (Manual) Lymphocytes % (Manual) Monocytes % (Manual) Eosinophils % (Manual) Basophils % (Manual) Nucleated RBC % Seg Neutrophils # Seg Neutrophils # Man Lymphocytes # (Manual) Monocytes # (Manual) Eosinophils # (Manual) PT INR Fibrinogen dRVVT Confirm Interp Factor V Activity POC ABG pH POC ABG pCO2 POC ABG pO2 ABG pO2 ABG HCO3 ABG Hemoglobin Oxyhemoglobin Sodium Potassium Chloride 97.8 L Carbon Dioxide BUN 37 H Creatinine 2.0 H Glucose 109 H POC Glucose 117 H 111 H Lactic Acid Calcium 7.9 L Phosphorus 1.80 L D Magnesium Direct Bilirubin AST ALT Alkaline Phosphatase Lactate Dehydrogenase Troponin T C-Reactive Protein Total Protein Albumin Prealbumin Triglycerides Cholesterol LDL Cholesterol Direct HDL Cholesterol Urine pH Urine WBC (Auto) Urine Creatinine Urine Total Protein Fluid Total Protein Vancomycin Trough Rheumatoid Factor Complement C4 Miscellaneous Test Crossmatch 11/26/16 11/27/16 11/27/16 17:14 04:50 06:02 WBC RBC Hgb Hct MCV MCH MCHC RDW Plt Count Lymph % (Auto) [place] % (Auto) Lymph # [place] # Baso # Seg Neutrophils % Seg Neuts % (Manual) Lymphocytes % (Manual) Monocytes % (Manual) Eosinophils % (Manual) Basophils % (Manual) Nucleated RBC % Seg Neutrophils # Seg Neutrophils # Man Lymphocytes # (Manual) Monocytes # (Manual) Eosinophils # (Manual) PT INR Fibrinogen dRVVT Confirm Interp Factor V Activity POC ABG pH POC ABG pCO2 POC ABG pO2 ABG pO2 75.2 L ABG HCO3 26.4 H ABG Hemoglobin 7.6 L Oxyhemoglobin 94.8 L Sodium Potassium Chloride Carbon Dioxide BUN 49 H Creatinine 2.3 H Glucose POC Glucose 115 H Lactic Acid Calcium Phosphorus 1.50 L Magnesium Direct Bilirubin AST ALT Alkaline Phosphatase Lactate Dehydrogenase Troponin T C-Reactive Protein Total Protein Albumin Prealbumin Triglycerides Cholesterol LDL Cholesterol Direct HDL Cholesterol Urine pH Urine WBC (Auto) Urine Creatinine Urine Total Protein Fluid Total Protein Vancomycin Trough Rheumatoid Factor Complement C4 Miscellaneous Test Crossmatch 11/27/16 11/27/16 11/27/16 06:02 11:25 17:25 WBC 11.6 H RBC 2.75 L Hgb 7.6 L Hct 23.4 L MCV MCH MCHC RDW 16.5 H Plt Count Lymph % (Auto) [place] % (Auto) Lymph # [place] # Baso # Seg Neutrophils % Seg Neuts % (Manual) Lymphocytes % (Manual) Monocytes % (Manual) Eosinophils % (Manual) Basophils % (Manual) Nucleated RBC % Seg Neutrophils # Seg Neutrophils # Man Lymphocytes # (Manual) Monocytes # (Manual) Eosinophils # (Manual) PT INR Fibrinogen dRVVT Confirm Interp Factor V Activity POC ABG pH POC ABG pCO2 POC ABG pO2 ABG pO2 ABG HCO3 ABG Hemoglobin Oxyhemoglobin Sodium Potassium Chloride Carbon Dioxide BUN Creatinine Glucose POC Glucose 114 H 126 H Lactic Acid Calcium Phosphorus Magnesium Direct Bilirubin AST ALT Alkaline Phosphatase Lactate Dehydrogenase Troponin T C-Reactive Protein Total Protein Albumin Prealbumin Triglycerides Cholesterol LDL Cholesterol Direct HDL Cholesterol Urine pH Urine WBC (Auto) Urine Creatinine Urine Total Protein Fluid Total Protein Vancomycin Trough Rheumatoid Factor Complement C4 Miscellaneous Test Crossmatch 11/28/16 11/28/16 11/28/16 04:45 05:33 05:44 WBC RBC Hgb Hct MCV MCH MCHC RDW Plt Count Lymph % (Auto) [place] % (Auto) Lymph # [place] # Baso # Seg Neutrophils % Seg Neuts % (Manual) Lymphocytes % (Manual) Monocytes % (Manual) Eosinophils % (Manual) Basophils % (Manual) Nucleated RBC % Seg Neutrophils # Seg Neutrophils # Man Lymphocytes # (Manual) Monocytes # (Manual) Eosinophils # (Manual) PT INR Fibrinogen dRVVT Confirm Interp Factor V Activity POC ABG pH POC ABG pCO2 POC ABG pO2 ABG pO2 99.3 H ABG HCO3 ABG Hemoglobin 8.3 L Oxyhemoglobin Sodium Potassium Chloride Carbon Dioxide BUN 63 H Creatinine 2.4 H Glucose 102 H POC Glucose 108 H Lactic Acid Calcium Phosphorus 1.80 L Magnesium Direct Bilirubin AST ALT Alkaline Phosphatase Lactate Dehydrogenase Troponin T C-Reactive Protein Total Protein Albumin Prealbumin Triglycerides Cholesterol LDL Cholesterol Direct HDL Cholesterol Urine pH Urine WBC (Auto) Urine Creatinine Urine Total Protein Fluid Total Protein Vancomycin Trough Rheumatoid Factor Complement C4 Miscellaneous Test Crossmatch 11/28/16 11/28/16 11/28/16 12:31 16:09 23:46 WBC RBC Hgb Hct MCV MCH MCHC RDW Plt Count Lymph % (Auto) [place] % (Auto) Lymph # [place] # Baso # Seg Neutrophils % Seg Neuts % (Manual) Lymphocytes % (Manual) Monocytes % (Manual) Eosinophils % (Manual) Basophils % (Manual) Nucleated RBC % Seg Neutrophils # Seg Neutrophils # Man Lymphocytes # (Manual) Monocytes # (Manual) Eosinophils # (Manual) PT INR Fibrinogen dRVVT Confirm Interp Factor V Activity POC ABG pH POC ABG pCO2 POC ABG pO2 ABG pO2 ABG HCO3 ABG Hemoglobin Oxyhemoglobin Sodium Potassium Chloride Carbon Dioxide BUN Creatinine Glucose POC Glucose 126 H 111 H 119 H Lactic Acid Calcium Phosphorus Magnesium Direct Bilirubin AST ALT Alkaline Phosphatase Lactate Dehydrogenase Troponin T C-Reactive Protein Total Protein Albumin Prealbumin Triglycerides Cholesterol LDL Cholesterol Direct HDL Cholesterol Urine pH Urine WBC (Auto) Urine Creatinine Urine Total Protein Fluid Total Protein Vancomycin Trough Rheumatoid Factor Complement C4 Miscellaneous Test Crossmatch 11/29/16 11/29/16 11/29/16 03:33 04:52 05:10 WBC RBC Hgb Hct MCV MCH MCHC RDW Plt Count Lymph % (Auto) [place] % (Auto) Lymph # [place] # Baso # Seg Neutrophils % Seg Neuts % (Manual) Lymphocytes % (Manual) Monocytes % (Manual) Eosinophils % (Manual) Basophils % (Manual) Nucleated RBC % Seg Neutrophils # Seg Neutrophils # Man Lymphocytes # (Manual) Monocytes # (Manual) Eosinophils # (Manual) PT INR Fibrinogen dRVVT Confirm Interp Factor V Activity POC ABG pH POC ABG pCO2 POC ABG pO2 ABG pO2 ABG HCO3 ABG Hemoglobin 7.0 L Oxyhemoglobin 94.9 L Sodium Potassium Chloride Carbon Dioxide BUN 73 H Creatinine 2.7 H Glucose POC Glucose 108 H Lactic Acid Calcium Phosphorus Magnesium Direct Bilirubin AST ALT Alkaline Phosphatase Lactate Dehydrogenase Troponin T C-Reactive Protein Total Protein Albumin Prealbumin Triglycerides Cholesterol LDL Cholesterol Direct HDL Cholesterol Urine pH Urine WBC (Auto) Urine Creatinine Urine Total Protein Fluid Total Protein Vancomycin Trough Rheumatoid Factor Complement C4 Miscellaneous Test Crossmatch 11/29/16 11/29/16 11/29/16 12:16 18:05 23:46 WBC RBC Hgb Hct MCV MCH MCHC RDW Plt Count Lymph % (Auto) [place] % (Auto) Lymph # [place] # Baso # Seg Neutrophils % Seg Neuts % (Manual) Lymphocytes % (Manual) Monocytes % (Manual) Eosinophils % (Manual) Basophils % (Manual) Nucleated RBC % Seg Neutrophils # Seg Neutrophils # Man Lymphocytes # (Manual) Monocytes # (Manual) Eosinophils # (Manual) PT INR Fibrinogen dRVVT Confirm Interp Factor V Activity POC ABG pH POC ABG pCO2 POC ABG pO2 ABG pO2 ABG HCO3 ABG Hemoglobin Oxyhemoglobin Sodium Potassium Chloride Carbon Dioxide BUN Creatinine Glucose POC Glucose 133 H 146 H 141 H Lactic Acid Calcium Phosphorus Magnesium Direct Bilirubin AST ALT Alkaline Phosphatase Lactate Dehydrogenase Troponin T C-Reactive Protein Total Protein Albumin Prealbumin Triglycerides Cholesterol LDL Cholesterol Direct HDL Cholesterol Urine pH Urine WBC (Auto) Urine Creatinine Urine Total Protein Fluid Total Protein Vancomycin Trough Rheumatoid Factor Complement C4 Miscellaneous Test Crossmatch 11/30/16 11/30/16 11/30/16 04:17 04:17 04:32 WBC 12.0 H RBC 2.80 L Hgb 7.8 L Hct 23.6 L MCV MCH MCHC RDW 16.6 H Plt Count Lymph % (Auto) [place] % (Auto) 11.3 H Lymph # [place] # 1.4 H Baso # Seg Neutrophils % Seg Neuts % (Manual) Lymphocytes % (Manual) Monocytes % (Manual) Eosinophils % (Manual) Basophils % (Manual) Nucleated RBC % Seg Neutrophils # 8.2 H Seg Neutrophils # Man Lymphocytes # (Manual) Monocytes # (Manual) Eosinophils # (Manual) PT INR Fibrinogen dRVVT Confirm Interp Factor V Activity POC ABG pH POC ABG pCO2 POC ABG pO2 ABG pO2 ABG HCO3 ABG Hemoglobin Oxyhemoglobin Sodium 169 H* D Potassium 5.1 H Chloride 121.5 H Carbon Dioxide BUN 34 H Creatinine 1.3 H D Glucose 133 H POC Glucose 131 H Lactic Acid Calcium 10.3 H Phosphorus Magnesium Direct Bilirubin AST ALT Alkaline Phosphatase Lactate Dehydrogenase Troponin T C-Reactive Protein Total Protein Albumin Prealbumin Triglycerides Cholesterol LDL Cholesterol Direct HDL Cholesterol Urine pH Urine WBC (Auto) Urine Creatinine Urine Total Protein Fluid Total Protein Vancomycin Trough Rheumatoid Factor Complement C4 Miscellaneous Test Crossmatch 11/30/16 11/30/16 11/30/16 05:45 11:10 17:26 WBC RBC Hgb Hct MCV MCH MCHC RDW Plt Count Lymph % (Auto) [place] % (Auto) Lymph # [place] # Baso # Seg Neutrophils % Seg Neuts % (Manual) Lymphocytes % (Manual) Monocytes % (Manual) Eosinophils % (Manual) Basophils % (Manual) Nucleated RBC % Seg Neutrophils # Seg Neutrophils # Man Lymphocytes # (Manual) Monocytes # (Manual) Eosinophils # (Manual) PT INR Fibrinogen dRVVT Confirm Interp Factor V Activity POC ABG pH POC ABG pCO2 POC ABG pO2 ABG pO2 ABG HCO3 ABG Hemoglobin Oxyhemoglobin Sodium Potassium Chloride Carbon Dioxide BUN 45 H Creatinine 1.6 H Glucose 131 H POC Glucose 146 H 134 H Lactic Acid Calcium Phosphorus Magnesium Direct Bilirubin AST ALT Alkaline Phosphatase Lactate Dehydrogenase Troponin T C-Reactive Protein Total Protein Albumin Prealbumin Triglycerides Cholesterol LDL Cholesterol Direct HDL Cholesterol Urine pH Urine WBC (Auto) Urine Creatinine Urine Total Protein Fluid Total Protein Vancomycin Trough Rheumatoid Factor Complement C4 Miscellaneous Test Crossmatch 11/30/16 12/01/16 12/01/16 23:35 00:06 03:35 WBC RBC Hgb Hct MCV MCH MCHC RDW Plt Count Lymph % (Auto) [place] % (Auto) Lymph # [place] # Baso # Seg Neutrophils % Seg Neuts % (Manual) Lymphocytes % (Manual) Monocytes % (Manual) Eosinophils % (Manual) Basophils % (Manual) Nucleated RBC % Seg Neutrophils # Seg Neutrophils # Man Lymphocytes # (Manual) Monocytes # (Manual) Eosinophils # (Manual) PT INR Fibrinogen dRVVT Confirm Interp Factor V Activity POC ABG pH POC ABG pCO2 POC ABG pO2 ABG pO2 ABG HCO3 ABG Hemoglobin 6.9 L Oxyhemoglobin Sodium Potassium Chloride Carbon Dioxide BUN 58 H Creatinine 1.8 H Glucose 146 H POC Glucose 151 H Lactic Acid Calcium Phosphorus Magnesium Direct Bilirubin AST ALT Alkaline Phosphatase Lactate Dehydrogenase Troponin T C-Reactive Protein Total Protein Albumin Prealbumin Triglycerides Cholesterol LDL Cholesterol Direct HDL Cholesterol Urine pH Urine WBC (Auto) Urine Creatinine Urine Total Protein Fluid Total Protein Vancomycin Trough Rheumatoid Factor Complement C4 Miscellaneous Test Crossmatch 12/01/16 12/01/16 03:35 05:47 WBC 12.3 H RBC 2.82 L Hgb 7.8 L Hct 23.7 L MCV MCH MCHC RDW 16.7 H Plt Count Lymph % (Auto) [place] % (Auto) 9.8 H Lymph # [place] # 1.2 H Baso # Seg Neutrophils % Seg Neuts % (Manual) Lymphocytes % (Manual) Monocytes % (Manual) Eosinophils % (Manual) Basophils % (Manual) Nucleated RBC % Seg Neutrophils # 8.4 H Seg Neutrophils # Man Lymphocytes # (Manual) Monocytes # (Manual) Eosinophils # (Manual) PT INR Fibrinogen dRVVT Confirm Interp Factor V Activity POC ABG pH POC ABG pCO2 POC ABG pO2 ABG pO2 ABG HCO3 ABG Hemoglobin Oxyhemoglobin Sodium Potassium Chloride Carbon Dioxide BUN Creatinine Glucose POC Glucose 152 H Lactic Acid Calcium Phosphorus Magnesium Direct Bilirubin AST ALT Alkaline Phosphatase Lactate Dehydrogenase Troponin T C-Reactive Protein Total Protein Albumin Prealbumin Triglycerides Cholesterol LDL Cholesterol Direct HDL Cholesterol Urine pH Urine WBC (Auto) Urine Creatinine Urine Total Protein Fluid Total Protein Vancomycin Trough Rheumatoid Factor Complement C4 Miscellaneous Test Crossmatch Chest x-ray: image reviewed (from 11/29/16) Allied health notes reviewed: RT
[2016-12-01] MEDS: PROTONIX IV SCH (11:26)
[2016-12-01] MEDS ORDERED: NACL 0.9% 1000 ML 2,000 ML ONE (11:44)
--- NOTE | 2016-12-01 11:48 | Progress Note ---
Assessment and Plan Assessment: 1) Recurrent SIRS: after recent code , likely from Enterococcal bacteremia from PICC line infection. 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 3) History of Candidemia: -Blood cultures positive for Silvia albicans on 09/23 -Blood cultures positive on 09/25 -Blood cultures negative on 09/30 -PICC line changed on 10/03 -Source ? gastric perf (PEG placed on 09/20) +/- TPN +/- central lines -TTE 10/07 no vegetations -PICC exchanged on 10/03 -fully treated with micafungin for 14 days last day 10/13 4) History CA-UTI s/p gutierrez exchanged 5) Diarrhea - ? etiology ? antibiotic-induced, not better. Multiple Cdiff negative 6) Initial presumed aspiration pneumonia 7) Respiratory failure s/p trach 8) Recent CVA-left MCA CVA 9) Uncontrolled HTN 10) Acute on CKD 11) Extensive back skin peeling ? burn from gastric secretions. Doubt allergic reaction - resolved 12) Severe anemia; ? from GI bleed 13) Recent abdominal wall abscess at surgical site-treated Plan: -continue vancomycin day 10 of -monitor temperature and leukocytosis -[facility] referral I am signing off call me if questions Thank you Dr Foley for your consultation, will follow up with you. Pauline Carias MD Infectious Diseases Specialist [facility] M [phone] O [phone] Subjective Date of service: 12/01/16 Principal diagnosis: Acute resp failure on MVS; S/P Acute CVA; Acute Encephalopathy; JUANITA Interval history: Interval history: No fever. Remains on vent via trach. Tachycardia on monitor. Microbiology: Blood cultures: 09/13 neg 09/23 Silvia albicans 09/25 Silvia 09/29 neg 10/07 neg 11/05 neg 11/07 ngtd 11/22 E faecalis 1 of 4 bottles 11/25 ngtd Urine cultures: 09/10 neg 09/13 neg 09/23 10-100K mixed species 10/07 neg 11/05 VRE 11/07 mixed bacteria Respiratory cultures: 09/07 neg 09/13 neg 09/23 neg 11/07 MDR Pseudomonas 11/21 tracheal + VRE Wound cultures: 10/17 abd wall wound purulence + Pseudomonas MDR Stool cultures: cath tip 11/07 + BEAD STRINGER Current Antimicrobials: vanco 11/23 Previous Antimicrobials: Zosyn 10/07 Vancomycin PO 10/01 Metronidazole 09/25 Micafungin 09/27-10/13 Meropenem 10/10 Vanco 10/17 zosyn 10/21 Cefepime 11/10 vancomyin 11/07 fluconazole 10/19 cefepime 10/29levaquin 11/05 Objective - Exam Narrative Exam: General appearance: somnolent, non communicative, on the vent via trach no following commands Eyes: anicteric sclera, moist conjunctivae; PERRLA HENT: Atraumatic; oropharynx limited; Normal external ears. +NGT with greenish secretion Neck: +trach in place; supple, no thyromegaly or lymphadenopathy Lungs: brit coarse BS CV: tachycardic Abdomen: Soft, non-tender, +old PEG site no drainage. +iliostomy. Right sided Surgical site x 2 with ostomy bag draining large amount yellowish secretion Extremities: +peripheral edema no extremity lymphadenopathy Skin: sacral area wounds superficial no purulence Psych: somnolent . Neuro: alert non verbal on the vent. Lines: new PICC left arm 11/29 - Constitutional Vitals: Vital Signs Temp Pulse Resp BP Pulse Ox 98.6 F 132 H 22 116/71 100 12/01/16 10:50 12/01/16 11:45 12/01/16 11:00 12/01/16 11:45 12/01/16 11:00 Temperature -Last 24 Hours Temperature 98.6 F Temperature 98.6 F Temperature 98.3 F Temperature 98.1 F Temperature 97.9 F Temperature 98.4 F Temperature 97.8 F - Labs CBC & Chem 7: 12/01/16 03:35 12/01/16 03:35 Labs: Abnormal lab results 11/30/16 11/30/16 11/30/16 Range/Units 11:10 17:26 23:35 WBC (4.5-11.0) K/mm3 RBC (3.65-5.03) M/mm3 Hgb (10.1-14.3) gm/dl Hct (30.3-42.9) % RDW (13.2-15.2) % [facility] [place] [facility] % (Auto) (0.0-7.3) % [facility] # (0.0-0.8) K/mm3 Seg Neutrophils # (1.8-7.7) K/mm3 ABG Hemoglobin 6.9 L (12.0-16.0) gm/dl BUN (7-17) mg/dL Creatinine (0.7-1.2) mg/dL Glucose (65-100) mg/dL POC Glucose 146 H 134 H (70-105) 12/01/16 12/01/16 12/01/16 Range/Units 00:06 03:35 03:35 WBC 12.3 H (4.5-11.0) K/mm3 RBC 2.82 L (3.65-5.03) M/mm3 Hgb 7.8 L (10.1-14.3) gm/dl Hct 23.7 L (30.3-42.9) % RDW 16.7 H (13.2-15.2) % [facility] [place] [facility] % (Auto) 9.8 H (0.0-7.3) % [facility] # 1.2 H (0.0-0.8) K/mm3 Seg Neutrophils # 8.4 H (1.8-7.7) K/mm3 ABG Hemoglobin (12.0-16.0) gm/dl BUN 58 H (7-17) mg/dL Creatinine 1.8 H (0.7-1.2) mg/dL Glucose 146 H (65-100) mg/dL POC Glucose 151 H (70-105) 12/01/16 Range/Units 05:47 WBC (4.5-11.0) K/mm3 RBC (3.65-5.03) M/mm3 Hgb (10.1-14.3) gm/dl Hct (30.3-42.9) % RDW (13.2-15.2) % [facility] [place] [facility] % (Auto) (0.0-7.3) % [facility] # (0.0-0.8) K/mm3 Seg Neutrophils # (1.8-7.7) K/mm3 ABG Hemoglobin (12.0-16.0) gm/dl BUN (7-17) mg/dL Creatinine (0.7-1.2) mg/dL Glucose (65-100) mg/dL POC Glucose 152 H (70-105)
[2016-12-01] MEDS: LOPRESSOR PO SCH ×3 (12:41→17:48)
[2016-12-01] MEDS: NORVASC PO SCH ×2 (12:41→14:34)
--- NOTE | 2016-12-01 12:54 | Progress Note ---
Assessment and Plan Assessment and plan: Patient is 46-year-old woman with a history of hypertension, diabetes, asthma, hyperlipidemia, chronic kidney disease and anxiety , who was brought in by family because, she couldn't get her words out, her face was also twisted, she was admitted for acute CVA and accelerated hypertension, she had a hx of poor adherence with her medications, and uncontrolled htn. Patient's SBP on admission was noted be greater than 260. TPA was started but this was discontinued after 5 minutes because her blood pressure became uncontrolled. The TPA was not initiated again because the patient was outside the TPA window. Status post cardiac arrest , 11/21/16 - Received CPR and was resuscitated. Fever - resolved - Now on Vancomycin - s/p R thoracentesis on 11/14, 240cc of serous fluid removed, cx of fluid was negative - Stool negative for C. difficile Severe Sepsis with septic shock - Resolving Surgical wound infection/gram-negative sepsis/candidemia/peritonitis - PEG has been removed and pus is drained from the PEG site - Currently on tube feeding -continue wound care to ostomy sites JUANITA, ESRD - on HD per nephrology Acute CVA with infarct - Neurology input appreciated - CT shows continued evolution of left MCA infarct with slight mass effect and edema, and there is no hemorrhage - PRINCE showed hyperdynamic with ef of 75%, neither clot nor septal defect seen - MRA Brain shows near complete occlusion of M2 and M3 of the left MCA - Repeat CT scan done on 09/11, shows stable findings - carotid doppler negative - Echo shows preserved systolic function but does show some left ventricular diastolic dysfunction - continue asa and statin Persistent vegetative state - This patient's needs placement at SNF - She was denied for LTACH Acute hypoxic respiratory failure requiring MV >96hrs - Status post tracheostomy, was on T piece Nosocomial acquired aspiration pneumonia/sepsis/UTI - Recurrent - On vancomycin Asthma/COPD exacerbation - ON trach, mechanical ventilation Acute Toxic Metabolic encephalopathy. - Multitifactorial, mostly secondary to evolution of CVA Bilateral pleural effusion, s/p right thoracentesis 11/14 - fluid analysis cw transudate Paroxysmal atrial fibrillation with rapid ventricular rate and hyper-coaguable state - failed cardioversion - Continue current medications, Not a candidate for anticoagulation secondary to anemia, thrombocytopenia, and massive CVA Diabetes type 2. Continue sliding-scale regular insulin and Accu-Cheks. Hyperlipidemia. Continue statin Nutrition - continue tube feeds Anemia requiring multiple transfusions/acute blood loss - Has received total 14 units of PRBC this admission. Will continue to transfuse to keep Hemoglobin above 7 - Hemoglobin 7.8 Per the Pattern Storage Clerk patient's were explained the disease situation yesterday by Dr Lopez and they refused hospice. Have been explained by the hospitalist group and the presentation designer about the poor prognosis of the patient but the family said she may made it and refused. Will talk to them at the end of the week. Disposition. Very poor prognosis. The high probability of a clinically significant, sudden or life threatening deterioration of the [neurologic, CV] system(s) required my full and direct attention, intervention and personal management. The aggregate critical care time was [34] minutes. This time is in addition to time spent performing reported procedures but includes the following: [x] Data Review and interpretation [x] Patient assessment and monitoring of vital signs [x] Documentation [x] Medication orders and management History Interval history: Patient was seen and evaluated this morning, patient is in persistent vegetative state. 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 Hospitalist Physical - Physical exam Narrative exam: Patient is on mechanical ventilation Vital signs as documented. Head exam is unremarkable. No scleral icterus . Neck is without jugular venous distension, thyromegaly, or carotid bruits. Lungs are clear to auscultation. Cardiac exam reveals regular rate and Rhythm. First and second heart sounds normal. No murmurs, rubs or gallops. Abdominal exam reveals abscess draining from the PEG site, and multiple fistulas around the stomach. Extremities are nonedematous and both femoral and pedal pulses are normal. 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 - Constitutional Vitals: Temp Pulse Resp BP Pulse Ox 98.0 F 129 H 27 H 134/95 100 12/01/16 12:00 12/01/16 12:46 12/01/16 12:30 12/01/16 12:46 12/01/16 12:30 General appearance: Present: no acute distress Results - Labs CBC & Chem 7: 12/01/16 03:35 12/01/16 03:35 Labs: Laboratory Last Values WBC 12.3 K/mm3 (4.5-11.0) H 12/01/16 03:35 RBC 2.82 M/mm3 (3.65-5.03) L 12/01/16 03:35 Hgb 7.8 gm/dl (10.1-14.3) L 12/01/16 03:35 Hct 23.7 % (30.3-42.9) L 12/01/16 03:35 MCV 84 fl (79-97) 12/01/16 03:35 MCH 28 pg (28-32) 12/01/16 03:35 MCHC 33 % (30-34) 12/01/16 03:35 RDW 16.7 % (13.2-15.2) H 12/01/16 03:35 Plt Count 284 K/mm3 (140-440) 12/01/16 03:35 Lymph % (Auto) 19.6 % (13.4-35.0) 12/01/16 03:35 [place] % (Auto) 9.8 % (0.0-7.3) H 12/01/16 03:35 Eos % (Auto) 1.5 % (0.0-4.3) 12/01/16 03:35 Baso % (Auto) 0.3 % (0.0-1.8) 12/01/16 03:35 Lymph # 2.4 K/mm3 (1.2-5.4) 12/01/16 03:35 [place] # 1.2 K/mm3 (0.0-0.8) H 12/01/16 03:35 Eos # 0.2 K/mm3 (0.0-0.4) 12/01/16 03:35 Baso # 0.0 K/mm3 (0.0-0.1) 12/01/16 03:35 Add Manual Diff Complete 11/22/16 05:00 Total Counted 100 11/22/16 05:00 Seg Neutrophils % 68.8 % (40.0-70.0) 12/01/16 03:35 Seg Neuts % (Manual) 52.0 % (40.0-70.0) 11/22/16 05:00 Band Neutrophils % 37.0 % 11/22/16 05:00 Lymphocytes % (Manual) 7.0 % (13.4-35.0) L 11/22/16 05:00 Reactive Lymphs % (Man) 0 % 11/22/16 05:00 Monocytes % (Manual) 0 % (0.0-7.3) 11/22/16 05:00 Eosinophils % (Manual) 1.0 % (0.0-4.3) 11/22/16 05:00 Basophils % (Manual) 0 % (0.0-1.8) 11/21/16 07:45 Metamyelocytes % 1.0 % 11/22/16 05:00 Myelocytes % 2.0 % 11/22/16 05:00 Promyelocytes % 0 % 11/22/16 05:00 Blast Cells % 0 % 11/22/16 05:00 Nucleated RBC % Not Reportable 11/22/16 05:00 Seg Neutrophils # 8.4 K/mm3 (1.8-7.7) H 12/01/16 03:35 Seg Neutrophils # Man 15.4 K/mm3 (1.8-7.7) H 11/22/16 05:00 Band Neutrophils # 11.0 K/mm3 11/22/16 05:00 Lymphocytes # (Manual) 2.1 K/mm3 (1.2-5.4) 11/22/16 05:00 Abs React Lymphs (Man) 0.0 K/mm3 11/22/16 05:00 Monocytes # (Manual) 0.0 K/mm3 (0.0-0.8) 11/22/16 05:00 Eosinophils # (Manual) 0.3 K/mm3 (0.0-0.4) 11/22/16 05:00 Basophils # (Manual) 0.0 K/mm3 (0.0-0.1) 11/22/16 05:00 Metamyelocytes # 0.3 K/mm3 11/22/16 05:00 Myelocytes # 0.6 K/mm3 11/22/16 05:00 Promyelocytes # 0.0 K/mm3 11/22/16 05:00 Blast Cells # 0.0 K/mm3 11/22/16 05:00 Pathologist Review 09/13/16 04:00 WBC Morphology Not Reportable 11/22/16 05:00 Hypersegmented Neuts Not Reportable 11/22/16 05:00 Hyposegmented Neuts Not Reportable 11/22/16 05:00 Hypogranular Neuts Not Reportable 11/22/16 05:00 Smudge Cells Not Reportable 11/22/16 05:00 Toxic Granulation Not Reportable 11/22/16 05:00 Toxic Vacuolation Not Reportable 11/22/16 05:00 Dohle Bodies Not Reportable 11/22/16 05:00 Pelger-Huet Anomaly Not Reportable 11/22/16 05:00 Jasmina Rods Not Reportable 11/22/16 05:00 Platelet Estimate Not Reportable 11/22/16 05:00 Clumped Platelets Not Reportable 11/22/16 05:00 Plt Clumps, EDTA Not Reportable 11/22/16 05:00 Large Platelets Not Reportable 11/22/16 05:00 Giant Platelets Not Reportable 11/22/16 05:00 Platelet Satelliting Not Reportable 11/22/16 05:00 Plt Morphology Comment Not Reportable 11/22/16 05:00 RBC Morphology Not Reportable 11/22/16 05:00 Dimorphic RBCs Not Reportable 11/22/16 05:00 Polychromasia Few 11/22/16 05:00 Hypochromasia Not Reportable 11/22/16 05:00 Poikilocytosis Not Reportable 11/22/16 05:00 Anisocytosis Not Reportable 11/22/16 05:00 Microcytosis Not Reportable 11/22/16 05:00 Macrocytosis Not Reportable 11/22/16 05:00 Spherocytes Not Reportable 11/22/16 05:00 Pappenheimer Bodies Not Reportable 11/22/16 05:00 Sickle Cells Not Reportable 11/22/16 05:00 Target Cells Not Reportable 11/22/16 05:00 Tear Drop Cells Not Reportable 11/22/16 05:00 Ovalocytes Not Reportable 11/22/16 05:00 Stomatocytes Few 10/06/16 03:50 Helmet Cells Not Reportable 11/22/16 05:00 [place] Bodies Not Reportable 11/22/16 05:00 [place] Rings Not Reportable 11/22/16 05:00 Chuck Cells Not Reportable 11/22/16 05:00 Bite Cells Not Reportable 11/22/16 05:00 Crenated Cell Not Reportable 11/22/16 05:00 Elliptocytes Not Reportable 11/22/16 05:00 Acanthocytes (Spur) Not Reportable 11/22/16 05:00 Rouleaux Not Reportable 11/22/16 05:00 Hemoglobin C Crystals Not Reportable 11/22/16 05:00 Schistocytes Not Reportable 11/22/16 05:00 Malaria parasites Not Reportable 11/22/16 05:00 ESR > 140.0 mm/Hr (0-20) 09/08/16 11:48 Jun Bodies Not Reportable 11/22/16 05:00 Hem Pathologist Commnt No 11/22/16 05:00 PT 16.8 Sec. (12.2-14.9) H 11/17/16 03:20 INR 1.37 (0.87-1.13) H 11/17/16 03:20 APTT 33.0 Sec. (24.2-36.6) 10/09/16 03:45 Thrombin Time 16.8 Sec. (15.1-19.6) 09/03/16 00:10 Fibrinogen 750 mg/dl (211-480) H 09/08/16 11:48 Lupus Anticoagulant see below 09/12/16 09:59 LA PTT Baseline See scanned report 09/12/16 09:59 dRVVT Confirm Interp Positive (Negative) H 09/12/16 09:59 dRVVT Screen 50:50 See scanned report 09/12/16 09:59 dRVVT Mix Interpret See scanned report 09/12/16 09:59 Protein C Antigen 122 % (70-140) 09/08/16 15:35 Free Protein S 97 % normal (50-147) 09/08/16 15:35 Total Protein S 109 % (70-140) 09/08/16 15:35 Antithrombin III Ag 100 % (80-120) 09/08/16 15:35 Heparin Anti-Xa, Unfract Negative (Negative) 09/29/16 13:35 Factor V Activity 182 % (65-150) H 09/08/16 15:35 POC ABG pH 7.487 (7.35-7.45) H 11/25/16 14:12 ABG pH 7.436 pH Units (7.350-7.450) 11/30/16 23:35 POC ABG pCO2 39.0 (35-45) 11/25/16 14:12 ABG pCO2 38.0 mm Hg 11/30/16 23:35 POC ABG pO2 153 (80-105) H 11/25/16 14:12 ABG pO2 83.0 mm Hg (80.0-90.0) 11/30/16 23:35 POC ABG HCO3 29.5 11/25/16 14:12 ABG HCO3 25.0 mmol/L (20.0-26.0) 11/30/16 23:35 POC ABG Total CO2 31 11/25/16 14:12 POC ABG O2 Sat 99 11/25/16 14:12 ABG O2 Saturation 96.9 % (95.0-99.0) 11/30/16 23:35 ABG O2 Content 9.4 (0.0-44) 11/30/16 23:35 POC ABG Base Excess 6 11/25/16 14:12 ABG Base Excess 0.8 mmol/L (-2.0-3.0) 11/30/16 23:35 ABG Hemoglobin 6.9 gm/dl (12.0-16.0) L 11/30/16 23:35 ABG Carboxyhemoglobin 1.5 % (0.0-5.0) 11/30/16 23:35 ABG Methemoglobin 0.5 % (0.0-1.5) 11/30/16 23:35 Oxyhemoglobin 95.0 % (95.0-99.0) 11/30/16 23:35 FiO2 28 % 11/30/16 23:35 Sodium 140 mmol/L (137-145) 12/01/16 03:35 Potassium 3.6 mmol/L (3.6-5.0) 12/01/16 03:35 Chloride 100.4 mmol/L (98-107) 12/01/16 03:35 Carbon Dioxide 24 mmol/L (22-30) 12/01/16 03:35 Anion Gap 19 mmol/L 12/01/16 03:35 BUN 58 mg/dL (7-17) H 12/01/16 03:35 Creatinine 1.8 mg/dL (0.7-1.2) H 12/01/16 03:35 Estimated GFR 37 ml/min 12/01/16 03:35 BUN/Creatinine Ratio 32 % 12/01/16 03:35 Glucose 146 mg/dL (65-100) H 12/01/16 03:35 POC Glucose 152 (70-105) H 12/01/16 11:52 Osmolality 351 Mosm/kg 09/16/16 11:47 Lactic Acid 4.50 mmol/L (0.7-2.0) H* 09/28/16 07:25 Calcium 9.2 mg/dL (8.4-10.2) 12/01/16 03:35 Phosphorus 4.40 mg/dL (2.5-4.5) 12/01/16 03:35 Magnesium 1.80 mg/dL (1.7-2.3) 12/01/16 03:35 Total Bilirubin 0.60 mg/dL (0.1-1.2) 11/25/16 04:42 Direct Bilirubin 0.3 mg/dL (0-0.2) H 10/10/16 05:00 Indirect Bilirubin 0.1 mg/dL 10/10/16 05:00 AST 19 units/L (5-40) 11/25/16 04:42 ALT 15 units/L (7-56) 11/25/16 04:42 Alkaline Phosphatase 142 units/L (35-129) H 11/25/16 04:42 Ammonia 27.0 umol/L (25-60) 09/07/16 08:37 Lactate Dehydrogenase 196 units/L (91-180) H 11/11/16 06:59 Total Creatine Kinase 121 units/L (30-135) 09/29/16 20:12 CK-MB (CK-2) < 1.0 ng/mL (0.0-4.0) 09/29/16 20:12 CK-MB (CK-2) Rel Index 0.8 (0-4) 09/29/16 20:12 Troponin T 0.204 ng/mL (0.00-0.029) H* 09/29/16 20:12 C-Reactive Protein 11.40 mg/dL (0.00-1.30) H 11/05/16 13:25 Total Protein 5.7 g/dL (6.3-8.2) L 11/25/16 04:42 Albumin 1.5 g/dL (3.9-5) L 11/25/16 04:42 Albumin/Globulin Ratio 0.4 % 11/25/16 04:42 Prealbumin 0.180 g/L (0.200-0.400) L 11/06/16 06:25 Triglycerides 137 mg/dL (2-149) 09/29/16 20:12 Cholesterol 31 mg/dL (50-199) L 09/29/16 20:12 LDL Cholesterol Direct 4 mg/dL (50-130) L 09/29/16 20:12 HDL Cholesterol 3 mg/dL (40-59) L 09/29/16 20:12 Cholesterol/HDL Ratio 10.33 % 09/29/16 20:12 Angiotensin Convert Enz See scanned report 09/08/16 11:48 Renin 0.99 ng/mL/h (0.25-5.82) 10/07/16 10:56 Aldosterone <1 ng/dL () 10/07/16 10:56 Aldosterone/Renin Dir see below 10/07/16 10:56 Serotonin Release Assay See scanned report 09/29/16 13:35 TSH 1.010 mlU/mL (0.270-4.200) 09/07/16 08:37 HCG, Qual Negative (Negative) 09/03/16 00:10 Urine Color Yellow (Yellow) 11/05/16 13:09 Urine Turbidity Clear (Clear) 11/05/16 13:09 Urine pH 9.0 (5.0-7.0) H 11/05/16 13:09 Ur Specific [place] 1.011 (1.003-1.030) 11/05/16 13:09 Urine Protein 100 mg/dl mg/dL (Negative) 11/05/16 13:09 Urine Glucose (UA) Neg mg/dL (Negative) 11/05/16 13:09 Urine Ketones Neg mg/dL (Negative) 11/05/16 13:09 Urine Blood Neg (Negative) 11/05/16 13:09 Urine Nitrite Neg (Negative) 11/05/16 13:09 Urine Bilirubin Neg (Negative) 11/05/16 13:09 Urine Urobilinogen < 2.0 mg/dL (<2.0) 11/05/16 13:09 Ur Leukocyte Esterase Neg (Negative) 11/05/16 13:09 Urine WBC (Auto) 4.0 /HPF (0.0-6.0) 11/05/16 13:09 Urine RBC (Auto) 1.0 /HPF (0.0-6.0) 11/05/16 13:09 U Epithel Cells (Auto) 1.0 /HPF (0-13.0) 10/07/16 18:30 Urine Bacteria (Auto) 4+ /HPF (Negative) 11/05/16 13:09 Urine WBC Clumps 2+ /HPF 09/07/16 02:47 Hyaline Casts 4 /LPF 09/07/16 02:47 Urine Mucus Few /HPF 10/07/16 18:30 Urine Yeast (Budding) 3+ /HPF 10/07/16 18:30 Urine Eosinophils None seen (None Seen) 09/07/16 16:00 Urine Total Volume 950 11/12/16 10:18 Urine Creatinine 19.7 mg/dL (0.1-20.0) 11/12/16 10:18 Height (in) 65.0 inches 11/12/16 10:18 Weight (lb) 181.0 lbs 11/12/16 10:18 Creatinine Clearance 5 11/12/16 10:18 Urine Sodium 36 mEq/L 09/16/16 19:19 Urine Total Protein 16 mg/dL (5-11.8) H 09/16/16 19:19 Fluid Total Protein < 3.0 (15.0-45.0) L 11/10/16 14:20 Fluid LDH 123 11/10/16 14:20 Vancomycin Trough 2.3 ug/mL (5.0-20.0) L 09/21/16 13:00 Random Vancomycin 16.5 ug/mL (0-40.0) 11/28/16 09:45 Urine Opiates Screen Presumptive negative 09/03/16 15:11 Urine Methadone Screen Presumptive positive 09/03/16 15:11 Ur Barbiturates Screen Presumptive positive 09/03/16 15:11 Ur Phencyclidine Scrn Presumptive negative 09/03/16 15:11 Ur Amphetamines Screen Presumptive negative 09/03/16 15:11 U Benzodiazepines Scrn Presumptive negative 09/03/16 15:11 Urine Cocaine Screen Presumptive negative 09/03/16 15:11 U Marijuana (THC) Screen Presumptive positive 09/03/16 15:11 Drugs of Abuse Note Disclamer 09/03/16 15:11 Rheumatoid Factor 24 IU/ml (0-13) H 09/08/16 11:48 SAHIL Screen Negative (Negative) 09/07/16 09:20 Proteinase 3 (PR3) Ab <1.0 AI (<1.0) 09/07/16 09:20 Myeloperoxidase Ab <1.0 AI (<1.0) 09/07/16 09:20 Sjogren's Antibody <1.0 AI (<1.0) 09/08/16 15:35 Scl-70 Scleroderma Ab <1.0 AI (<1.0) 09/08/16 15:35 Centromere B Antibody <1.0 AI (<1.0) 09/08/16 12:02 Heparin-induced Plt Ab Negative (Negative) 09/29/16 13:35 UF Heparin High Dose 11 % Release 09/29/16 13:35 SUDHIR UFH Low Dose 0.1 6 % Release 09/29/16 13:35 SUDHIR UFH Low Dose 0.5 8 % Release 09/29/16 13:35 Cardiolipid IgG Ab <14 GPL (<=14) 09/12/16 09:59 Cardiolipid IgA Ab <11 APL (<=11) 09/12/16 09:59 Cardiolipid IgM Ab <12 MPL (<=12) 09/12/16 09:59 Complement C3 148 mg/dL (90-180) 09/07/16 09:20 Complement C4 58 mg/dL (16-47) H 09/07/16 09:20 RPR Nonreactive (Nonreactive) 09/08/16 11:48 Hepatitis A IgM Ab Non-reactive (NonReactive) 09/24/16 14:40 Hep Bs Antigen Non-reactive (Negative) 09/24/16 14:40 Hep B Core IgM Ab Non-reactive (NonReactive) 09/24/16 14:40 Hepatitis C Antibody Non-reactive (NonReactive) 09/24/16 14:40 HIV 1&2 Antibody Rapid Non react (Non React) 09/08/16 11:48 HIV P24 Antigen Non react (Non React) 09/08/16 11:48 Miscellaneous Test Flexitest 1 H 11/05/16 13:25 Blood Type A POSITIVE 11/24/16 11:20 Antibody Screen TNR 11/24/16 11:20 DELORIS Antibody Screen Negative 11/24/16 11:20 Crossmatch See Detail 11/24/16 11:20
[2016-12-01] MEDS: DURAGESIC TD SCH (14:32)
[2016-12-01] MEDS: APRESOLINE PO SCH ×2 (14:33→22:10)
[2016-12-01] MEDS: HEPARIN IV PRN (14:39)
--- NOTE | 2016-12-01 15:33 | Progress Note ---
Assessment and Plan Patient with protracted course. Surgery visit requested to evaluate possibility of fistula. Patient currently on trickle feeds. Discussed with nursing to continue feeding and monitor any change in output from wounds. If fistula is present the output should be directly proportional to tube feed ammount. I am also recommending a fistulogram to be ordered per primary team. Subjective Date of service: 12/01/16 Objective Vital Signs - 12hr 12/01/16 12/01/16 12/01/16 03:44 04:00 04:01 Temperature 98.3 F Pulse Rate 128 H 124 H Respiratory 32 H 16 Rate Blood Pressure 206/110 195/110 O2 Sat by Pulse 100 99 100 Oximetry O2 Sat by Pulse Oximetry [ Bilateral Throughout] 12/01/16 12/01/16 12/01/16 04:30 05:00 05:30 Temperature Pulse Rate 135 H 125 H 129 H Respiratory 14 16 22 Rate Blood Pressure 223/136 188/124 204/124 O2 Sat by Pulse 100 Oximetry O2 Sat by Pulse Oximetry [ Bilateral Throughout] 12/01/16 12/01/16 12/01/16 06:00 06:07 06:30 Temperature Pulse Rate 103 H 128 H 110 H Respiratory 21 22 Rate Blood Pressure 184/117 214/124 157/106 O2 Sat by Pulse Oximetry O2 Sat by Pulse Oximetry [ Bilateral Throughout] 12/01/16 12/01/16 12/01/16 07:01 07:30 07:35 Temperature 98.6 F Pulse Rate 117 H 121 H Respiratory 22 20 Rate Blood Pressure 166/106 181/111 O2 Sat by Pulse 100 100 Oximetry O2 Sat by Pulse Oximetry [ Bilateral Throughout] 12/01/16 12/01/16 12/01/16 08:00 08:19 08:21 Temperature Pulse Rate 126 H 125 H 124 H Respiratory 18 Rate Blood Pressure 182/115 191/120 191/120 O2 Sat by Pulse 100 100 Oximetry O2 Sat by Pulse Oximetry [ Bilateral Throughout] 12/01/16 12/01/16 12/01/16 08:30 09:00 09:30 Temperature Pulse Rate 107 H 115 H 123 H Respiratory 27 H 25 H 18 Rate Blood Pressure 166/96 169/96 177/108 O2 Sat by Pulse 99 99 99 Oximetry O2 Sat by Pulse Oximetry [ Bilateral Throughout] 12/01/16 12/01/16 12/01/16 10:01 10:30 10:50 Temperature 98.6 F Pulse Rate 120 H 120 H 125 H Respiratory 22 22 25 H Rate Blood Pressure 167/98 162/99 169/97 O2 Sat by Pulse 100 Oximetry O2 Sat by Pulse 100 Oximetry [ Bilateral Throughout] 12/01/16 12/01/16 12/01/16 11:00 11:15 11:30 Temperature Pulse Rate 124 H 124 H 128 H Respiratory 22 Rate Blood Pressure 166/89 159/100 127/81 O2 Sat by Pulse 100 Oximetry O2 Sat by Pulse Oximetry [ Bilateral Throughout] 12/01/16 12/01/16 12/01/16 11:31 11:45 12:00 Temperature 98.0 F Pulse Rate 127 H 132 H 131 H Respiratory 26 H 23 Rate Blood Pressure 127/81 116/71 153/98 O2 Sat by Pulse 100 100 Oximetry O2 Sat by Pulse Oximetry [ Bilateral Throughout] 12/01/16 12/01/16 12/01/16 12:05 12:13 12:15 Temperature Pulse Rate 129 H 130 H Respiratory 28 H Rate Blood Pressure 153/98 145/95 O2 Sat by Pulse 100 Oximetry O2 Sat by Pulse Oximetry [ Bilateral Throughout] 12/01/16 12/01/16 12/01/16 12:30 12:46 13:00 Temperature Pulse Rate 131 H 129 H 131 H Respiratory 27 H 25 H Rate Blood Pressure 139/95 134/95 144/102 O2 Sat by Pulse 100 100 Oximetry O2 Sat by Pulse Oximetry [ Bilateral Throughout] 12/01/16 12/01/16 12/01/16 13:02 13:15 13:30 Temperature Pulse Rate 132 H 133 H 131 H Respiratory 25 H Rate Blood Pressure 144/102 147/98 148/99 O2 Sat by Pulse 100 Oximetry O2 Sat by Pulse Oximetry [ Bilateral Throughout] 12/01/16 12/01/16 12/01/16 13:32 13:47 14:00 Temperature Pulse Rate 130 H 131 H 131 H Respiratory 29 H Rate Blood Pressure 148/99 152/99 144/107 O2 Sat by Pulse 100 Oximetry O2 Sat by Pulse Oximetry [ Bilateral Throughout] 12/01/16 12/01/16 12/01/16 14:20 14:27 14:30 Temperature 98.0 F Pulse Rate 133 H 131 H 128 H Respiratory 30 H 28 H Rate Blood Pressure 136/106 136/106 145/94 O2 Sat by Pulse 100 Oximetry O2 Sat by Pulse 100 Oximetry [ Bilateral Throughout] 12/01/16 12/01/16 12/01/16 14:33 14:34 15:00 Temperature Pulse Rate 129 H 127 H 118 H Respiratory 17 Rate Blood Pressure 145/94 145/94 124/72 O2 Sat by Pulse 97 Oximetry O2 Sat by Pulse Oximetry [ Bilateral Throughout] - General physical appearance well nourished, no distress, obese - Eyes PERRL - Respiratory normal expansion rales: bilateral - Abdomen soft, bowel sounds normal, not guarding, not rigid, wound (Covered with ostomy appliance with mild drainage per nursing staff) - Labs 12/01/16 03:35 12/01/16 03:35 Diabetes panel 12/01/16 Range/Units 03:35 Sodium 140 (137-145) mmol/L Potassium 3.6 (3.6-5.0) mmol/L Chloride 100.4 (98-107) mmol/L Carbon Dioxide 24 (22-30) mmol/L BUN 58 H (7-17) mg/dL Creatinine 1.8 H (0.7-1.2) mg/dL Glucose 146 H (65-100) mg/dL Calcium 9.2 (8.4-10.2) mg/dL Calcium panel 12/01/16 Range/Units 03:35 Calcium 9.2 (8.4-10.2) mg/dL Phosphorus 4.40 (2.5-4.5) mg/dL Pituitary panel 12/01/16 Range/Units 03:35 Sodium 140 (137-145) mmol/L Potassium 3.6 (3.6-5.0) mmol/L Chloride 100.4 (98-107) mmol/L Carbon Dioxide 24 (22-30) mmol/L BUN 58 H (7-17) mg/dL Creatinine 1.8 H (0.7-1.2) mg/dL Glucose 146 H (65-100) mg/dL Calcium 9.2 (8.4-10.2) mg/dL Adrenal panel 12/01/16 Range/Units 03:35 Sodium 140 (137-145) mmol/L Potassium 3.6 (3.6-5.0) mmol/L Chloride 100.4 (98-107) mmol/L Carbon Dioxide 24 (22-30) mmol/L BUN 58 H (7-17) mg/dL Creatinine 1.8 H (0.7-1.2) mg/dL Glucose 146 H (65-100) mg/dL Calcium 9.2 (8.4-10.2) mg/dL - Imaging CT scan - abdomen: report reviewed CT scan - pelvis: report reviewed
[2016-12-01] MEDS ORDERED: TPN ADULT IV SCH (20:00)
[2016-12-01] MEDS ORDERED: VANCOMYCIN/NS 1 GM/250 ML 1 GM/250 ML BAG IV ONE (20:00)
[2016-12-02] MEDS: ZOFRAN IV PRN (02:32)
[2016-12-02] MEDS: MORPHINE IV PRN ×2 (02:32→16:31)
[2016-12-02] MEDS: LASIX IV SCH ×2 (05:10→18:32)
[2016-12-02] MEDS: HumuLIN R SUB-Q SCH ×4 (06:00→18:35)
[2016-12-02] MEDS: APRESOLINE PO SCH ×3 (06:03→22:36)
[2016-12-02] MEDS: LOPRESSOR PO SCH ×4 (06:15→18:32)
[2016-12-02 06:55] LABS: Calcium 8.4 mg/dL (8.4-10.2)
[2016-12-02] MEDS: NORVASC PO SCH (09:24)
[2016-12-02] MEDS: HEPARIN SUB-Q SCH ×2 (09:25→22:36)
[2016-12-02] MEDS: PROTONIX FEEDTUBE SCH (09:25)
--- NOTE | 2016-12-02 10:49 | Progress Note ---
Assessment and Plan Assessment: 1) Recurrent SIRS: after recent code , likely from Enterococcal bacteremia from PICC line infection. 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 3) History of Candidemia: -Blood cultures positive for Silvia albicans on 09/23 -Blood cultures positive on 09/25 -Blood cultures negative on 09/30 -PICC line changed on 10/03 -Source ? gastric perf (PEG placed on 09/20) +/- TPN +/- central lines -TTE 10/07 no vegetations -PICC exchanged on 10/03 -fully treated with micafungin for 14 days last day 10/13 4) History CA-UTI s/p gutierrez exchanged 5) Diarrhea - ? etiology ? antibiotic-induced, not better. Multiple Cdiff negative 6) Initial presumed aspiration pneumonia 7) Respiratory failure s/p trach 8) Recent CVA-left MCA CVA 9) Uncontrolled HTN 10) Acute on CKD 11) Extensive back skin peeling ? burn from gastric secretions. Doubt allergic reaction - resolved 12) Severe anemia; ? from GI bleed 13) Recent abdominal wall abscess at surgical site-treated Plan: -continue vancomycin day 11 of -monitor temperature and leukocytosis -fistula evaluation ongoing I am signing off call me if questions Thank you Dr Foley for your consultation, will follow up with you. Pauline Carias MD Infectious Diseases Specialist [facility], [place], [facility] ([facility] [phone] Subjective Date of service: 12/02/16 Principal diagnosis: Acute resp failure on MVS; S/P Acute CVA; Acute Encephalopathy; JUANITA Interval history: Interval history: No fever. Remains on vent via trach. Tachycardia on monitor. Microbiology: Blood cultures: 09/13 neg 09/23 Silvia albicans 09/25 Silvia 09/29 neg 10/07 neg 11/05 neg 11/07 ngtd 11/22 E faecalis 1 of 4 bottles 11/25 ngtd Urine cultures: 09/10 neg 09/13 neg 09/23 10-100K mixed species 10/07 neg 11/05 VRE 11/07 mixed bacteria Respiratory cultures: 09/07 neg 09/13 neg 09/23 neg 11/07 MDR Pseudomonas 11/21 tracheal + VRE Wound cultures: 10/17 abd wall wound purulence + Pseudomonas MDR Stool cultures: cath tip 11/07 + [employer] Current Antimicrobials: vanco 11/23 Previous Antimicrobials: Zosyn 10/07 Vancomycin PO 10/01 Metronidazole 09/25 Micafungin 09/27-10/13 Meropenem 10/10 Vanco 10/17 zosyn 10/21 Cefepime 11/10 vancomyin 11/07 fluconazole 10/19 cefepime 10/29levaquin 11/05 Objective - Exam Narrative Exam: General appearance: somnolent, non communicative, on the vent via trach no following commands Eyes: anicteric sclera, moist conjunctivae; PERRLA HENT: Atraumatic; oropharynx limited; Normal external ears. +NGT with greenish secretion Neck: +trach in place; supple, no thyromegaly or lymphadenopathy Lungs: brit coarse BS CV: tachycardic Abdomen: Soft, non-tender, +old PEG site no drainage. +iliostomy. Right sided Surgical site x 2 with ostomy bag draining large amount yellowish secretion Extremities: +peripheral edema no extremity lymphadenopathy Skin: sacral area wounds superficial no purulence Psych: somnolent . Neuro: alert non verbal on the vent. Lines: new PICC left arm 11/29 - Constitutional Vitals: Vital Signs Temp Pulse Resp BP Pulse Ox 99.1 F 114 H 26 H 144/87 98 12/02/16 07:49 12/02/16 09:24 12/02/16 09:01 12/02/16 09:24 12/02/16 09:01 Temperature -Last 24 Hours Temperature 99.1 F Temperature 99.0 F Temperature 98.0 F Temperature 98.7 F Temperature 97.6 F Temperature 98.0 F Temperature 98.0 F Temperature 98.0 F Temperature 98.6 F - Labs CBC & Chem 7: 12/01/16 03:35 12/02/16 05:00 Labs: Abnormal lab results 12/01/16 12/01/16 12/01/16 Range/Units 11:52 17:40 23:41 BUN (7-17) mg/dL Glucose (65-100) mg/dL POC Glucose 152 H 140 H 144 H (70-105) 12/02/16 12/02/16 Range/Units 05:00 05:31 BUN 45 H (7-17) mg/dL Glucose 115 H (65-100) mg/dL POC Glucose 136 H (70-105)
--- NOTE | 2016-12-02 13:26 | Progress Note ---
Assessment and Plan Patient with protracted course. Surgery visit requested to evaluate possibility of fistula. Patient currently on tube feeds at 20cc's/hr with marked increase in output from previous PEG tube site. Will perform a fistulogram now for likely gastricutaneous fistula vs EC fistula. Subjective Date of service: 12/02/16 Patient Reports: Positive: no new complaints (Non-verbal) Objective Vital Signs - 12hr 12/02/16 12/02/16 12/02/16 01:30 02:00 02:30 Temperature Pulse Rate 96 H 94 H 97 H Pulse Rate [ From Monitor] Respiratory 14 25 H 21 Rate Blood Pressure 157/86 143/76 153/79 O2 Sat by Pulse 100 100 100 Oximetry 12/02/16 12/02/16 12/02/16 02:32 03:00 03:30 Temperature Pulse Rate 94 H 98 H Pulse Rate [ From Monitor] Respiratory 22 22 15 Rate Blood Pressure 133/77 153/82 O2 Sat by Pulse 100 100 Oximetry 12/02/16 12/02/16 12/02/16 04:00 04:10 04:31 Temperature 99.0 F Pulse Rate 105 H 97 H Pulse Rate [ 104 H From Monitor] Respiratory 17 18 26 H Rate Blood Pressure 175/79 132/72 O2 Sat by Pulse 98 Oximetry 12/02/16 12/02/16 12/02/16 05:01 06:03 06:15 Temperature Pulse Rate 104 H 113 H 116 H Pulse Rate [ From Monitor] Respiratory 21 Rate Blood Pressure 142/74 175/115 179/114 O2 Sat by Pulse Oximetry 12/02/16 12/02/16 12/02/16 07:01 07:31 07:49 Temperature 99.1 F Pulse Rate 105 H 104 H Pulse Rate [ From Monitor] Respiratory 26 H 29 H Rate Blood Pressure 157/98 159/95 O2 Sat by Pulse 99 99 Oximetry 12/02/16 12/02/16 12/02/16 08:01 08:31 08:32 Temperature Pulse Rate 108 H 109 H Pulse Rate [ From Monitor] Respiratory 29 H 31 H Rate Blood Pressure 161/87 157/97 O2 Sat by Pulse 98 99 99 Oximetry 12/02/16 12/02/16 12/02/16 09:01 09:24 09:31 Temperature Pulse Rate 111 H 114 H 116 H Pulse Rate [ From Monitor] Respiratory 26 H 27 H Rate Blood Pressure 144/87 144/87 121/94 O2 Sat by Pulse 98 98 Oximetry 12/02/16 12/02/16 12/02/16 10:00 10:31 11:00 Temperature Pulse Rate 115 H 119 H 121 H Pulse Rate [ From Monitor] Respiratory 35 H 31 H 32 H Rate Blood Pressure 148/96 121/94 157/103 O2 Sat by Pulse 98 98 94 Oximetry 12/02/16 12/02/16 12/02/16 11:30 11:49 12:00 Temperature Pulse Rate 118 H 120 H 118 H Pulse Rate [ From Monitor] Respiratory 31 H 31 H Rate Blood Pressure 125/86 122/89 142/82 O2 Sat by Pulse 95 95 Oximetry - General physical appearance well developed, well nourished, no distress, no pain, chronically ill - Neck trachea midline - Respiratory normal expansion, other (Off ventilator) - Abdomen soft, not tender, not distended, wound, other (Lateral port sites witj stable minimal drainage. Upper abdomen wound has markedly increased in drainage) - Labs 12/01/16 03:35 12/02/16 05:00 Diabetes panel 12/02/16 Range/Units 05:00 Sodium 139 (137-145) mmol/L Potassium 3.8 (3.6-5.0) mmol/L Chloride 101.4 (98-107) mmol/L Carbon Dioxide 25 (22-30) mmol/L BUN 45 H (7-17) mg/dL Creatinine 1.2 (0.7-1.2) mg/dL Glucose 115 H (65-100) mg/dL Calcium 8.4 (8.4-10.2) mg/dL Calcium panel 12/02/16 Range/Units 05:00 Calcium 8.4 (8.4-10.2) mg/dL Phosphorus 3.40 D (2.5-4.5) mg/dL Pituitary panel 12/02/16 Range/Units 05:00 Sodium 139 (137-145) mmol/L Potassium 3.8 (3.6-5.0) mmol/L Chloride 101.4 (98-107) mmol/L Carbon Dioxide 25 (22-30) mmol/L BUN 45 H (7-17) mg/dL Creatinine 1.2 (0.7-1.2) mg/dL Glucose 115 H (65-100) mg/dL Calcium 8.4 (8.4-10.2) mg/dL Adrenal panel 12/02/16 Range/Units 05:00 Sodium 139 (137-145) mmol/L Potassium 3.8 (3.6-5.0) mmol/L Chloride 101.4 (98-107) mmol/L Carbon Dioxide 25 (22-30) mmol/L BUN 45 H (7-17) mg/dL Creatinine 1.2 (0.7-1.2) mg/dL Glucose 115 H (65-100) mg/dL Calcium 8.4 (8.4-10.2) mg/dL - Imaging Abdominal x-ray: pending
--- NOTE | 2016-12-02 13:41 | Progress Note ---
Assessment and Plan Acute Hypoxemic Respiratory Failure (now with exacerbation and back on MVS) Hypertension (unable to receive p.o. 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 and get back to us early next week) - s/p dialysis yesterday - keep on with daily PSV trials and / or T-piece as tolerated - Placed PICC line for TPN administration (continue TPN; NPO except for meds) - continue scopolamine for secretion control - continue to wean FiO2 for sats > 94% - continue bronchodilators and pulmonary toilet - VAP bundle addressed - continue prn IV metorolol - continue AB's (Vancomycin) till stop date per ID recs - continue metoprolol and amlodipine (rate control better) - continue HD/UF per nephrology (for HD/UF session yesterday) - continue to follow electrolytes and correct as necessary - continue GI & VTE prophylaxis - Continue flu & pneumovax per protocol .....family conferencedetails are as documented above ... she remains critically ill on life sustaining interventions including MVS and at risk for further deterioration including ....35' CCT today without overlap Subjective Date of service: 12/02/16 Principal diagnosis: Acute resp failure on MVS; S/P Acute CVA; Acute Encephalopathy; JUANITA Interval history: Patient is seen today for: Acute resp failure on MVS; S/P Acute CVA; Acute Encephalopathy; JUANITA Seen and examined at bedside; 24hour events reviewed; nursing and respiratory care staff consulted; no adverse overnight events reported to me; not tolerating PSV or T-piece trials today; AMS is persistent; no high grade fevers ; ostomy bags still draining and fistulogram confirms entero-cutaneous fistula' s. Had extended discussion with next of kin (son and brother today re: end of life issues / CODE Status Objective Vital Signs - 12hr 12/02/16 12/02/16 12/02/16 02:00 02:30 02:32 Temperature Pulse Rate 94 H 97 H Pulse Rate [ From Monitor] Respiratory 25 H 21 22 Rate Blood Pressure 143/76 153/79 O2 Sat by Pulse 100 100 Oximetry 12/02/16 12/02/16 12/02/16 03:00 03:30 04:00 Temperature 99.0 F Pulse Rate 94 H 98 H Pulse Rate [ 104 H From Monitor] Respiratory 22 15 17 Rate Blood Pressure 133/77 153/82 O2 Sat by Pulse 100 100 98 Oximetry 12/02/16 12/02/16 12/02/16 04:10 04:31 05:01 Temperature Pulse Rate 105 H 97 H 104 H Pulse Rate [ From Monitor] Respiratory 18 26 H 21 Rate Blood Pressure 175/79 132/72 142/74 O2 Sat by Pulse Oximetry 12/02/16 12/02/16 12/02/16 06:03 06:15 07:01 Temperature Pulse Rate 113 H 116 H 105 H Pulse Rate [ From Monitor] Respiratory 26 H Rate Blood Pressure 175/115 179/114 157/98 O2 Sat by Pulse 99 Oximetry 12/02/16 12/02/16 12/02/16 07:31 07:49 08:01 Temperature 99.1 F Pulse Rate 104 H 108 H Pulse Rate [ From Monitor] Respiratory 29 H 29 H Rate Blood Pressure 159/95 161/87 O2 Sat by Pulse 99 98 Oximetry 12/02/16 12/02/16 12/02/16 08:31 08:32 09:01 Temperature Pulse Rate 109 H 111 H Pulse Rate [ From Monitor] Respiratory 31 H 26 H Rate Blood Pressure 157/97 144/87 O2 Sat by Pulse 99 99 98 Oximetry 12/02/16 12/02/16 12/02/16 09:24 09:31 10:00 Temperature Pulse Rate 114 H 116 H 115 H Pulse Rate [ From Monitor] Respiratory 27 H 35 H Rate Blood Pressure 144/87 121/94 148/96 O2 Sat by Pulse 98 98 Oximetry 12/02/16 12/02/16 12/02/16 10:31 11:00 11:30 Temperature Pulse Rate 119 H 121 H 118 H Pulse Rate [ From Monitor] Respiratory 31 H 32 H 31 H Rate Blood Pressure 121/94 157/103 125/86 O2 Sat by Pulse 98 94 95 Oximetry 12/02/16 12/02/16 12/02/16 11:49 12:00 12:30 Temperature 99.6 F Pulse Rate 120 H 118 H 114 H Pulse Rate [ From Monitor] Respiratory 31 H 32 H Rate Blood Pressure 122/89 142/82 127/68 O2 Sat by Pulse 95 97 Oximetry 12/02/16 13:01 Temperature Pulse Rate 105 H Pulse Rate [ From Monitor] Respiratory 32 H Rate Blood Pressure 136/67 O2 Sat by Pulse 97 Oximetry Constitutional: appears uncomfortable, other (not tracking) Eyes: non-icteric, other (tracheostomy tube in midline of neck) ENT: oropharynx moist Neck: supple, no lymphadenopathy, no JVD, other (no thyromegaly) Effort: mildly labored Ascultation: Bilateral: diminished breath sounds (bases), rhonchi (and referred upper airway sounds) Cardiovascular: regular rate and rhythm, other (no rubs / murmurs) Gastrointestinal: hypoactive bowel sounds, soft, non-tender, non-distended, other (RLQ & LUQ stomas with colostomy bags) Integumentary: other (healing back burn-like injury; poor turgor) Extremities: no cyanosis, no edema, pulses normal, no ischemia or petechiae Neurologic: pupils equal and round, unable to assess, other (encephalopathic) Psychiatric: other (unable to assess) CBC and BMP: 12/03/16 04:00 12/05/16 05:00 ABG, PT/INR, D-dimer: ABG POC ABG pH 7.487 (7.35-7.45) H 11/25/16 14:12 ABG pH 7.436 pH Units (7.350-7.450) 11/30/16 23:35 POC ABG pCO2 39.0 (35-45) 11/25/16 14:12 ABG pCO2 38.0 mm Hg 11/30/16 23:35 POC ABG pO2 153 (80-105) H 11/25/16 14:12 ABG pO2 83.0 mm Hg (80.0-90.0) 11/30/16 23:35 POC ABG HCO3 29.5 11/25/16 14:12 POC ABG Total CO2 31 11/25/16 14:12 POC ABG O2 Sat 99 11/25/16 14:12 ABG O2 Saturation 96.9 % (95.0-99.0) 11/30/16 23:35 PT/INR, D-dimer PT 16.8 Sec. (12.2-14.9) H 11/17/16 03:20 INR 1.37 (0.87-1.13) H 11/17/16 03:20 Abnormal lab findings: Abnormal Labs 09/03/16 09/03/16 09/03/16 12:12 15:07 16:20 WBC RBC Hgb Hct MCV MCH MCHC RDW Plt Count Lymph % (Auto) Stone % (Auto) Lymph # Stone # Baso # Seg Neutrophils % Seg Neuts % (Manual) Lymphocytes % (Manual) Monocytes % (Manual) Eosinophils % (Manual) Basophils % (Manual) Nucleated RBC % Seg Neutrophils # Seg Neutrophils # Man Lymphocytes # (Manual) Monocytes # (Manual) Eosinophils # (Manual) PT INR Fibrinogen dRVVT Confirm Interp Factor V Activity POC ABG pH 7.452 H POC ABG pCO2 POC ABG pO2 ABG pO2 ABG HCO3 ABG Hemoglobin Oxyhemoglobin Sodium Potassium Chloride Carbon Dioxide BUN Creatinine Glucose POC Glucose 178 H Lactic Acid Calcium Phosphorus 2.20 L Magnesium 1.60 L Direct Bilirubin AST ALT Alkaline Phosphatase Lactate Dehydrogenase Troponin T C-Reactive Protein Total Protein Albumin Prealbumin Triglycerides Cholesterol LDL Cholesterol Direct HDL Cholesterol Urine pH Urine WBC (Auto) Urine Creatinine Urine Total Protein Fluid Total Protein Vancomycin Trough Rheumatoid Factor Complement C4 Miscellaneous Test Crossmatch 09/03/16 09/03/16 09/03/16 17:57 17:58 23:50 WBC RBC Hgb Hct MCV MCH MCHC RDW Plt Count Lymph % (Auto) Stone % (Auto) Lymph # Stone # Baso # Seg Neutrophils % Seg Neuts % (Manual) Lymphocytes % (Manual) Monocytes % (Manual) Eosinophils % (Manual) Basophils % (Manual) Nucleated RBC % Seg Neutrophils # Seg Neutrophils # Man Lymphocytes # (Manual) Monocytes # (Manual) Eosinophils # (Manual) PT INR Fibrinogen dRVVT Confirm Interp Factor V Activity POC ABG pH POC ABG pCO2 POC ABG pO2 ABG pO2 ABG HCO3 ABG Hemoglobin Oxyhemoglobin Sodium Potassium Chloride Carbon Dioxide BUN Creatinine Glucose POC Glucose 162 H 145 H Lactic Acid Calcium Phosphorus 2.30 L Magnesium Direct Bilirubin AST ALT Alkaline Phosphatase Lactate Dehydrogenase Troponin T C-Reactive Protein Total Protein Albumin Prealbumin Triglycerides Cholesterol LDL Cholesterol Direct HDL Cholesterol Urine pH Urine WBC (Auto) Urine Creatinine Urine Total Protein Fluid Total Protein Vancomycin Trough Rheumatoid Factor Complement C4 Miscellaneous Test Crossmatch 09/04/16 09/04/16 09/04/16 03:31 03:31 05:42 WBC RBC Hgb 9.7 L D Hct MCV 72 L MCH 23 L MCHC RDW 17.5 H Plt Count Lymph % (Auto) 11.1 L Stone % (Auto) Lymph # Stone # Baso # Seg Neutrophils % 84.3 H Seg Neuts % (Manual) Lymphocytes % (Manual) Monocytes % (Manual) Eosinophils % (Manual) Basophils % (Manual) Nucleated RBC % Seg Neutrophils # 8.9 H Seg Neutrophils # Man Lymphocytes # (Manual) Monocytes # (Manual) Eosinophils # (Manual) PT INR Fibrinogen dRVVT Confirm Interp Factor V Activity POC ABG pH POC ABG pCO2 POC ABG pO2 ABG pO2 ABG HCO3 ABG Hemoglobin Oxyhemoglobin Sodium 135 L Potassium 2.9 L* Chloride 97.2 L Carbon Dioxide 19 L BUN Creatinine 1.7 H Glucose 170 H POC Glucose 152 H Lactic Acid Calcium Phosphorus Magnesium Direct Bilirubin AST ALT Alkaline Phosphatase Lactate Dehydrogenase Troponin T C-Reactive Protein Total Protein Albumin Prealbumin Triglycerides 160 H Cholesterol LDL Cholesterol Direct HDL Cholesterol 31 L Urine pH Urine WBC (Auto) Urine Creatinine Urine Total Protein Fluid Total Protein Vancomycin Trough Rheumatoid Factor Complement C4 Miscellaneous Test Crossmatch 09/04/16 09/04/16 09/04/16 11:34 17:46 23:29 WBC RBC Hgb Hct MCV MCH MCHC RDW Plt Count Lymph % (Auto) Stone % (Auto) Lymph # Stone # Baso # Seg Neutrophils % Seg Neuts % (Manual) Lymphocytes % (Manual) Monocytes % (Manual) Eosinophils % (Manual) Basophils % (Manual) Nucleated RBC % Seg Neutrophils # Seg Neutrophils # Man Lymphocytes # (Manual) Monocytes # (Manual) Eosinophils # (Manual) PT INR Fibrinogen dRVVT Confirm Interp Factor V Activity POC ABG pH POC ABG pCO2 POC ABG pO2 ABG pO2 ABG HCO3 ABG Hemoglobin Oxyhemoglobin Sodium Potassium Chloride Carbon Dioxide BUN Creatinine Glucose POC Glucose 165 H 210 H 139 H Lactic Acid Calcium Phosphorus Magnesium Direct Bilirubin AST ALT Alkaline Phosphatase Lactate Dehydrogenase Troponin T C-Reactive Protein Total Protein Albumin Prealbumin Triglycerides Cholesterol LDL Cholesterol Direct HDL Cholesterol Urine pH Urine WBC (Auto) Urine Creatinine Urine Total Protein Fluid Total Protein Vancomycin Trough Rheumatoid Factor Complement C4 Miscellaneous Test Crossmatch 09/05/16 09/05/16 09/05/16 04:05 04:05 05:38 WBC RBC Hgb Hct MCV 76 L D MCH 23 L MCHC RDW 17.8 H Plt Count Lymph % (Auto) Stone % (Auto) Lymph # Stone # Baso # Seg Neutrophils % Seg Neuts % (Manual) Lymphocytes % (Manual) Monocytes % (Manual) Eosinophils % (Manual) Basophils % (Manual) Nucleated RBC % Seg Neutrophils # Seg Neutrophils # Man Lymphocytes # (Manual) Monocytes # (Manual) Eosinophils # (Manual) PT INR Fibrinogen dRVVT Confirm Interp Factor V Activity POC ABG pH POC ABG pCO2 POC ABG pO2 ABG pO2 ABG HCO3 ABG Hemoglobin Oxyhemoglobin Sodium 134 L Potassium Chloride Carbon Dioxide 18 L BUN Creatinine 1.8 H Glucose 192 H POC Glucose 175 H Lactic Acid Calcium Phosphorus Magnesium Direct Bilirubin AST ALT Alkaline Phosphatase Lactate Dehydrogenase Troponin T C-Reactive Protein Total Protein Albumin Prealbumin Triglycerides Cholesterol LDL Cholesterol Direct HDL Cholesterol Urine pH Urine WBC (Auto) Urine Creatinine Urine Total Protein Fluid Total Protein Vancomycin Trough Rheumatoid Factor Complement C4 Miscellaneous Test Crossmatch 09/05/16 09/05/16 09/05/16 11:38 17:48 23:22 WBC RBC Hgb Hct MCV MCH MCHC RDW Plt Count Lymph % (Auto) Stone % (Auto) Lymph # Stone # Baso # Seg Neutrophils % Seg Neuts % (Manual) Lymphocytes % (Manual) Monocytes % (Manual) Eosinophils % (Manual) Basophils % (Manual) Nucleated RBC % Seg Neutrophils # Seg Neutrophils # Man Lymphocytes # (Manual) Monocytes # (Manual) Eosinophils # (Manual) PT INR Fibrinogen dRVVT Confirm Interp Factor V Activity POC ABG pH POC ABG pCO2 POC ABG pO2 ABG pO2 ABG HCO3 ABG Hemoglobin Oxyhemoglobin Sodium Potassium Chloride Carbon Dioxide BUN Creatinine Glucose POC Glucose 164 H 186 H 195 H Lactic Acid Calcium Phosphorus Magnesium Direct Bilirubin AST ALT Alkaline Phosphatase Lactate Dehydrogenase Troponin T C-Reactive Protein Total Protein Albumin Prealbumin Triglycerides Cholesterol LDL Cholesterol Direct HDL Cholesterol Urine pH Urine WBC (Auto) Urine Creatinine Urine Total Protein Fluid Total Protein Vancomycin Trough Rheumatoid Factor Complement C4 Miscellaneous Test Crossmatch 09/06/16 09/06/16 09/06/16 04:12 05:59 07:32 WBC RBC Hgb Hct MCV MCH MCHC RDW Plt Count Lymph % (Auto) Stone % (Auto) Lymph # Stone # Baso # Seg Neutrophils % Seg Neuts % (Manual) Lymphocytes % (Manual) Monocytes % (Manual) Eosinophils % (Manual) Basophils % (Manual) Nucleated RBC % Seg Neutrophils # Seg Neutrophils # Man Lymphocytes # (Manual) Monocytes # (Manual) Eosinophils # (Manual) PT INR Fibrinogen dRVVT Confirm Interp Factor V Activity POC ABG pH 7.514 H POC ABG pCO2 29.1 L POC ABG pO2 72 L ABG pO2 ABG HCO3 ABG Hemoglobin Oxyhemoglobin Sodium 133 L Potassium 3.4 L Chloride 94.9 L Carbon Dioxide 19 L BUN 30 H Creatinine 2.1 H Glucose 139 H POC Glucose 146 H Lactic Acid Calcium Phosphorus Magnesium Direct Bilirubin AST ALT Alkaline Phosphatase Lactate Dehydrogenase Troponin T C-Reactive Protein Total Protein Albumin Prealbumin Triglycerides Cholesterol LDL Cholesterol Direct HDL Cholesterol Urine pH Urine WBC (Auto) Urine Creatinine Urine Total Protein Fluid Total Protein Vancomycin Trough Rheumatoid Factor Complement C4 Miscellaneous Test Crossmatch 09/06/16 09/06/16 09/06/16 11:57 17:58 19:02 WBC RBC Hgb Hct MCV MCH MCHC RDW Plt Count Lymph % (Auto) Stone % (Auto) Lymph # Stone # Baso # Seg Neutrophils % Seg Neuts % (Manual) Lymphocytes % (Manual) Monocytes % (Manual) Eosinophils % (Manual) Basophils % (Manual) Nucleated RBC % Seg Neutrophils # Seg Neutrophils # Man Lymphocytes # (Manual) Monocytes # (Manual) Eosinophils # (Manual) PT INR Fibrinogen dRVVT Confirm Interp Factor V Activity POC ABG pH 7.465 H POC ABG pCO2 32.0 L POC ABG pO2 ABG pO2 ABG HCO3 ABG Hemoglobin Oxyhemoglobin Sodium Potassium Chloride Carbon Dioxide BUN Creatinine Glucose POC Glucose 165 H 160 H Lactic Acid Calcium Phosphorus Magnesium Direct Bilirubin AST ALT Alkaline Phosphatase Lactate Dehydrogenase Troponin T C-Reactive Protein Total Protein Albumin Prealbumin Triglycerides Cholesterol LDL Cholesterol Direct HDL Cholesterol Urine pH Urine WBC (Auto) Urine Creatinine Urine Total Protein Fluid Total Protein Vancomycin Trough Rheumatoid Factor Complement C4 Miscellaneous Test Crossmatch 09/06/16 09/07/16 09/07/16 23:45 02:47 02:47 WBC RBC Hgb Hct MCV MCH MCHC RDW Plt Count Lymph % (Auto) Stone % (Auto) Lymph # Stone # Baso # Seg Neutrophils % Seg Neuts % (Manual) Lymphocytes % (Manual) Monocytes % (Manual) Eosinophils % (Manual) Basophils % (Manual) Nucleated RBC % Seg Neutrophils # Seg Neutrophils # Man Lymphocytes # (Manual) Monocytes # (Manual) Eosinophils # (Manual) PT INR Fibrinogen dRVVT Confirm Interp Factor V Activity POC ABG pH POC ABG pCO2 POC ABG pO2 ABG pO2 ABG HCO3 ABG Hemoglobin Oxyhemoglobin Sodium Potassium Chloride Carbon Dioxide BUN Creatinine Glucose POC Glucose 204 H Lactic Acid Calcium Phosphorus Magnesium Direct Bilirubin AST ALT Alkaline Phosphatase Lactate Dehydrogenase Troponin T C-Reactive Protein Total Protein Albumin Prealbumin Triglycerides Cholesterol LDL Cholesterol Direct HDL Cholesterol Urine pH Urine WBC (Auto) 68.0 H Urine Creatinine 106.1 H Urine Total Protein Fluid Total Protein Vancomycin Trough Rheumatoid Factor Complement C4 Miscellaneous Test Crossmatch 09/07/16 09/07/16 09/07/16 04:50 06:19 06:39 WBC RBC Hgb Hct MCV MCH MCHC RDW Plt Count Lymph % (Auto) Stone % (Auto) Lymph # Stone # Baso # Seg Neutrophils % Seg Neuts % (Manual) Lymphocytes % (Manual) Monocytes % (Manual) Eosinophils % (Manual) Basophils % (Manual) Nucleated RBC % Seg Neutrophils # Seg Neutrophils # Man Lymphocytes # (Manual) Monocytes # (Manual) Eosinophils # (Manual) PT INR Fibrinogen dRVVT Confirm Interp Factor V Activity POC ABG pH 7.457 H POC ABG pCO2 32.1 L POC ABG pO2 76 L ABG pO2 ABG HCO3 ABG Hemoglobin Oxyhemoglobin Sodium 132 L Potassium Chloride 94.7 L Carbon Dioxide BUN 53 H Creatinine 2.9 H Glucose 151 H POC Glucose 149 H Lactic Acid Calcium Phosphorus Magnesium Direct Bilirubin AST ALT Alkaline Phosphatase Lactate Dehydrogenase Troponin T C-Reactive Protein Total Protein Albumin Prealbumin Triglycerides Cholesterol LDL Cholesterol Direct HDL Cholesterol Urine pH Urine WBC (Auto) Urine Creatinine Urine Total Protein Fluid Total Protein Vancomycin Trough Rheumatoid Factor Complement C4 Miscellaneous Test Crossmatch 09/07/16 09/07/16 09/07/16 09:20 11:43 11:43 WBC 19.4 H RBC Hgb 8.3 L Hct 26.4 L D MCV 72 L D MCH 22 L MCHC RDW 17.9 H Plt Count Lymph % (Auto) 8.5 L Stone % (Auto) Lymph # Stone # 1.0 H Baso # Seg Neutrophils % 85.8 H Seg Neuts % (Manual) Lymphocytes % (Manual) Monocytes % (Manual) Eosinophils % (Manual) Basophils % (Manual) Nucleated RBC % Seg Neutrophils # 16.6 H Seg Neutrophils # Man Lymphocytes # (Manual) Monocytes # (Manual) Eosinophils # (Manual) PT INR Fibrinogen dRVVT Confirm Interp Factor V Activity POC ABG pH POC ABG pCO2 POC ABG pO2 ABG pO2 ABG HCO3 ABG Hemoglobin Oxyhemoglobin Sodium 134 L Potassium Chloride 97.2 L Carbon Dioxide 20 L BUN 58 H Creatinine 2.9 H Glucose 147 H POC Glucose Lactic Acid Calcium Phosphorus 2.40 L Magnesium 2.40 H Direct Bilirubin AST ALT Alkaline Phosphatase Lactate Dehydrogenase Troponin T C-Reactive Protein Total Protein 5.8 L Albumin 2.2 L Prealbumin Triglycerides Cholesterol LDL Cholesterol Direct HDL Cholesterol Urine pH Urine WBC (Auto) Urine Creatinine Urine Total Protein Fluid Total Protein Vancomycin Trough Rheumatoid Factor Complement C4 58 H Miscellaneous Test Crossmatch 09/07/16 09/07/16 09/07/16 11:50 16:00 17:31 WBC RBC Hgb Hct MCV MCH MCHC RDW Plt Count Lymph % (Auto) Stone % (Auto) Lymph # Stone # Baso # Seg Neutrophils % Seg Neuts % (Manual) Lymphocytes % (Manual) Monocytes % (Manual) Eosinophils % (Manual) Basophils % (Manual) Nucleated RBC % Seg Neutrophils # Seg Neutrophils # Man Lymphocytes # (Manual) Monocytes # (Manual) Eosinophils # (Manual) PT INR Fibrinogen dRVVT Confirm Interp Factor V Activity POC ABG pH POC ABG pCO2 POC ABG pO2 158 H ABG pO2 ABG HCO3 ABG Hemoglobin Oxyhemoglobin Sodium Potassium Chloride Carbon Dioxide BUN Creatinine Glucose POC Glucose 175 H Lactic Acid Calcium Phosphorus Magnesium Direct Bilirubin AST ALT Alkaline Phosphatase Lactate Dehydrogenase Troponin T C-Reactive Protein Total Protein Albumin Prealbumin Triglycerides Cholesterol LDL Cholesterol Direct HDL Cholesterol Urine pH Urine WBC (Auto) Urine Creatinine 66.3 H Urine Total Protein Fluid Total Protein Vancomycin Trough Rheumatoid Factor Complement C4 Miscellaneous Test Crossmatch 09/07/16 09/08/16 09/08/16 23:50 05:46 06:18 WBC 17.8 H RBC 3.58 L Hgb 8.1 L Hct 25.5 L MCV 71 L MCH 23 L MCHC RDW 18.4 H Plt Count Lymph % (Auto) Stone % (Auto) Lymph # Stone # Baso # Seg Neutrophils % Seg Neuts % (Manual) 92.0 H Lymphocytes % (Manual) 6.0 L Monocytes % (Manual) Eosinophils % (Manual) Basophils % (Manual) Nucleated RBC % Seg Neutrophils # Seg Neutrophils # Man 16.4 H Lymphocytes # (Manual) 1.1 L Monocytes # (Manual) Eosinophils # (Manual) PT INR Fibrinogen dRVVT Confirm Interp Factor V Activity POC ABG pH POC ABG pCO2 34.3 L POC ABG pO2 71 L ABG pO2 ABG HCO3 ABG Hemoglobin Oxyhemoglobin Sodium Potassium Chloride Carbon Dioxide BUN Creatinine Glucose POC Glucose 216 H Lactic Acid Calcium Phosphorus Magnesium Direct Bilirubin AST ALT Alkaline Phosphatase Lactate Dehydrogenase Troponin T C-Reactive Protein Total Protein Albumin Prealbumin Triglycerides Cholesterol LDL Cholesterol Direct HDL Cholesterol Urine pH Urine WBC (Auto) Urine Creatinine Urine Total Protein Fluid Total Protein Vancomycin Trough Rheumatoid Factor Complement C4 Miscellaneous Test Crossmatch 09/08/16 09/08/16 09/08/16 06:18 06:51 10:55 WBC RBC Hgb Hct MCV MCH MCHC RDW Plt Count Lymph % (Auto) Stone % (Auto) Lymph # Stone # Baso # Seg Neutrophils % Seg Neuts % (Manual) Lymphocytes % (Manual) Monocytes % (Manual) Eosinophils % (Manual) Basophils % (Manual) Nucleated RBC % Seg Neutrophils # Seg Neutrophils # Man Lymphocytes # (Manual) Monocytes # (Manual) Eosinophils # (Manual) PT INR Fibrinogen dRVVT Confirm Interp Factor V Activity POC ABG pH POC ABG pCO2 POC ABG pO2 ABG pO2 ABG HCO3 ABG Hemoglobin Oxyhemoglobin Sodium 133 L Potassium Chloride 96.9 L Carbon Dioxide 20 L BUN 63 H Creatinine 2.7 H Glucose 195 H POC Glucose 204 H 169 H Lactic Acid Calcium Phosphorus Magnesium Direct Bilirubin AST ALT Alkaline Phosphatase Lactate Dehydrogenase Troponin T C-Reactive Protein Total Protein Albumin Prealbumin Triglycerides Cholesterol LDL Cholesterol Direct HDL Cholesterol Urine pH Urine WBC (Auto) Urine Creatinine Urine Total Protein Fluid Total Protein Vancomycin Trough Rheumatoid Factor Complement C4 Miscellaneous Test Crossmatch 09/08/16 09/08/16 09/08/16 11:48 11:48 11:48 WBC RBC Hgb Hct MCV MCH MCHC RDW Plt Count Lymph % (Auto) Stone % (Auto) Lymph # Stone # Baso # Seg Neutrophils % Seg Neuts % (Manual) Lymphocytes % (Manual) Monocytes % (Manual) Eosinophils % (Manual) Basophils % (Manual) Nucleated RBC % Seg Neutrophils # Seg Neutrophils # Man Lymphocytes # (Manual) Monocytes # (Manual) Eosinophils # (Manual) PT INR Fibrinogen 750 H dRVVT Confirm Interp Factor V Activity POC ABG pH POC ABG pCO2 POC ABG pO2 ABG pO2 ABG HCO3 ABG Hemoglobin Oxyhemoglobin Sodium Potassium Chloride Carbon Dioxide BUN Creatinine Glucose POC Glucose Lactic Acid Calcium Phosphorus Magnesium Direct Bilirubin AST ALT Alkaline Phosphatase Lactate Dehydrogenase Troponin T C-Reactive Protein 15.70 H Total Protein Albumin Prealbumin Triglycerides Cholesterol LDL Cholesterol Direct HDL Cholesterol Urine pH Urine WBC (Auto) Urine Creatinine Urine Total Protein Fluid Total Protein Vancomycin Trough Rheumatoid Factor 24 H Complement C4 Miscellaneous Test Crossmatch 09/08/16 09/08/16 09/09/16 15:35 18:25 00:24 WBC RBC Hgb Hct MCV MCH MCHC RDW Plt Count Lymph % (Auto) Stone % (Auto) Lymph # Stone # Baso # Seg Neutrophils % Seg Neuts % (Manual) Lymphocytes % (Manual) Monocytes % (Manual) Eosinophils % (Manual) Basophils % (Manual) Nucleated RBC % Seg Neutrophils # Seg Neutrophils # Man Lymphocytes # (Manual) Monocytes # (Manual) Eosinophils # (Manual) PT INR Fibrinogen dRVVT Confirm Interp Factor V Activity 182 H POC ABG pH POC ABG pCO2 POC ABG pO2 ABG pO2 ABG HCO3 ABG Hemoglobin Oxyhemoglobin Sodium Potassium Chloride Carbon Dioxide BUN Creatinine Glucose POC Glucose 184 H 216 H Lactic Acid Calcium Phosphorus Magnesium Direct Bilirubin AST ALT Alkaline Phosphatase Lactate Dehydrogenase Troponin T C-Reactive Protein Total Protein Albumin Prealbumin Triglycerides Cholesterol LDL Cholesterol Direct HDL Cholesterol Urine pH Urine WBC (Auto) Urine Creatinine Urine Total Protein Fluid Total Protein Vancomycin Trough Rheumatoid Factor Complement C4 Miscellaneous Test Crossmatch 09/09/16 09/09/16 09/09/16 03:00 03:00 04:04 WBC 27.9 H RBC Hgb 8.7 L Hct 28.1 L MCV 72 L MCH 22 L MCHC RDW 18.4 H Plt Count 485 H Lymph % (Auto) Stone % (Auto) Lymph # Stone # Baso # Seg Neutrophils % Seg Neuts % (Manual) 77.0 H Lymphocytes % (Manual) 9.0 L Monocytes % (Manual) Eosinophils % (Manual) Basophils % (Manual) Nucleated RBC % Seg Neutrophils # Seg Neutrophils # Man 21.5 H Lymphocytes # (Manual) Monocytes # (Manual) 2.0 H Eosinophils # (Manual) PT INR Fibrinogen dRVVT Confirm Interp Factor V Activity POC ABG pH POC ABG pCO2 POC ABG pO2 121 H ABG pO2 ABG HCO3 ABG Hemoglobin Oxyhemoglobin Sodium 135 L Potassium Chloride 96.3 L Carbon Dioxide 21 L BUN 83 H Creatinine 3.0 H Glucose 135 H POC Glucose Lactic Acid Calcium Phosphorus Magnesium Direct Bilirubin AST ALT Alkaline Phosphatase Lactate Dehydrogenase Troponin T C-Reactive Protein Total Protein Albumin Prealbumin Triglycerides Cholesterol LDL Cholesterol Direct HDL Cholesterol Urine pH Urine WBC (Auto) Urine Creatinine Urine Total Protein Fluid Total Protein Vancomycin Trough Rheumatoid Factor Complement C4 Miscellaneous Test Crossmatch 09/09/16 09/09/16 09/09/16 05:41 11:55 14:13 WBC RBC Hgb Hct MCV MCH MCHC RDW Plt Count Lymph % (Auto) Stone % (Auto) Lymph # Stone # Baso # Seg Neutrophils % Seg Neuts % (Manual) Lymphocytes % (Manual) Monocytes % (Manual) Eosinophils % (Manual) Basophils % (Manual) Nucleated RBC % Seg Neutrophils # Seg Neutrophils # Man Lymphocytes # (Manual) Monocytes # (Manual) Eosinophils # (Manual) PT INR Fibrinogen dRVVT Confirm Interp Factor V Activity POC ABG pH POC ABG pCO2 POC ABG pO2 ABG pO2 ABG HCO3 ABG Hemoglobin Oxyhemoglobin Sodium Potassium Chloride Carbon Dioxide BUN Creatinine Glucose POC Glucose 155 H 186 H Lactic Acid Calcium Phosphorus Magnesium Direct Bilirubin AST ALT Alkaline Phosphatase Lactate Dehydrogenase Troponin T C-Reactive Protein Total Protein Albumin Prealbumin Triglycerides Cholesterol LDL Cholesterol Direct HDL Cholesterol Urine pH Urine WBC (Auto) 25.0 H Urine Creatinine Urine Total Protein Fluid Total Protein Vancomycin Trough Rheumatoid Factor Complement C4 Miscellaneous Test Crossmatch 09/09/16 09/09/16 09/10/16 17:33 23:13 05:09 WBC RBC Hgb Hct MCV MCH MCHC RDW Plt Count Lymph % (Auto) Stone % (Auto) Lymph # Stone # Baso # Seg Neutrophils % Seg Neuts % (Manual) Lymphocytes % (Manual) Monocytes % (Manual) Eosinophils % (Manual) Basophils % (Manual) Nucleated RBC % Seg Neutrophils # Seg Neutrophils # Man Lymphocytes # (Manual) Monocytes # (Manual) Eosinophils # (Manual) PT INR Fibrinogen dRVVT Confirm Interp Factor V Activity POC ABG pH POC ABG pCO2 POC ABG pO2 74 L ABG pO2 ABG HCO3 ABG Hemoglobin Oxyhemoglobin Sodium Potassium Chloride Carbon Dioxide BUN Creatinine Glucose POC Glucose 211 H 215 H Lactic Acid Calcium Phosphorus Magnesium Direct Bilirubin AST ALT Alkaline Phosphatase Lactate Dehydrogenase Troponin T C-Reactive Protein Total Protein Albumin Prealbumin Triglycerides Cholesterol LDL Cholesterol Direct HDL Cholesterol Urine pH Urine WBC (Auto) Urine Creatinine Urine Total Protein Fluid Total Protein Vancomycin Trough Rheumatoid Factor Complement C4 Miscellaneous Test Crossmatch 09/10/16 09/10/1617 05:17 05:17 11:31 WBC 15.8 H RBC 3.25 L Hgb 7.3 L Hct 22.9 L MCV 71 L MCH 23 L MCHC RDW 18.4 H Plt Count Lymph % (Auto) Stone % (Auto) Lymph # Stone # Baso # Seg Neutrophils % Seg Neuts % (Manual) 91.0 H Lymphocytes % (Manual) 4.0 L Monocytes % (Manual) Eosinophils % (Manual) Basophils % (Manual) Nucleated RBC % Seg Neutrophils # Seg Neutrophils # Man 14.4 H Lymphocytes # (Manual) 0.6 L Monocytes # (Manual) Eosinophils # (Manual) PT INR Fibrinogen dRVVT Confirm Interp Factor V Activity POC ABG pH POC ABG pCO2 POC ABG pO2 ABG pO2 ABG HCO3 ABG Hemoglobin Oxyhemoglobin Sodium Potassium Chloride Carbon Dioxide 21 L BUN 93 H Creatinine 2.9 H Glucose 146 H POC Glucose 188 H Lactic Acid Calcium 8.1 L Phosphorus Magnesium Direct Bilirubin AST ALT Alkaline Phosphatase Lactate Dehydrogenase Troponin T C-Reactive Protein Total Protein Albumin Prealbumin Triglycerides Cholesterol LDL Cholesterol Direct HDL Cholesterol Urine pH Urine WBC (Auto) Urine Creatinine Urine Total Protein Fluid Total Protein Vancomycin Trough Rheumatoid Factor Complement C4 Miscellaneous Test Crossmatch 09/10/16 09/10/16 09/10/16 13:17 17:20 23:32 WBC RBC Hgb Hct MCV MCH MCHC RDW Plt Count Lymph % (Auto) Stone % (Auto) Lymph # Stone # Baso # Seg Neutrophils % Seg Neuts % (Manual) Lymphocytes % (Manual) Monocytes % (Manual) Eosinophils % (Manual) Basophils % (Manual) Nucleated RBC % Seg Neutrophils # Seg Neutrophils # Man Lymphocytes # (Manual) Monocytes # (Manual) Eosinophils # (Manual) PT INR Fibrinogen dRVVT Confirm Interp Factor V Activity POC ABG pH POC ABG pCO2 POC ABG pO2 ABG pO2 ABG HCO3 ABG Hemoglobin Oxyhemoglobin Sodium Potassium Chloride Carbon Dioxide BUN Creatinine Glucose POC Glucose 199 H 186 H Lactic Acid Calcium Phosphorus Magnesium Direct Bilirubin AST ALT Alkaline Phosphatase Lactate Dehydrogenase Troponin T C-Reactive Protein Total Protein Albumin Prealbumin Triglycerides Cholesterol LDL Cholesterol Direct HDL Cholesterol Urine pH Urine WBC (Auto) Urine Creatinine Urine Total Protein Fluid Total Protein Vancomycin Trough Rheumatoid Factor Complement C4 Miscellaneous Test Crossmatch See Detail 07/23/17 07/23/17 07/23/17 05:10 05:10 05:17 WBC 28.4 H RBC Hgb 9.2 L Hct 29.3 L D MCV 73 L MCH 23 L MCHC RDW 18.9 H Plt Count 452 H Lymph % (Auto) Stone % (Auto) Lymph # Stone # Baso # Seg Neutrophils % Seg Neuts % (Manual) 89.5 H Lymphocytes % (Manual) 2.0 L Monocytes % (Manual) Eosinophils % (Manual) Basophils % (Manual) Nucleated RBC % Seg Neutrophils # Seg Neutrophils # Man 25.4 H Lymphocytes # (Manual) 0.6 L Monocytes # (Manual) 1.3 H Eosinophils # (Manual) PT INR Fibrinogen dRVVT Confirm Interp Factor V Activity POC ABG pH POC ABG pCO2 POC ABG pO2 ABG pO2 ABG HCO3 ABG Hemoglobin Oxyhemoglobin Sodium 136 L Potassium Chloride Carbon Dioxide 18 L BUN 107 H Creatinine 2.6 H Glucose 187 H POC Glucose 230 H Lactic Acid Calcium 8.3 L Phosphorus Magnesium Direct Bilirubin AST ALT Alkaline Phosphatase Lactate Dehydrogenase Troponin T C-Reactive Protein Total Protein Albumin Prealbumin Triglycerides Cholesterol LDL Cholesterol Direct HDL Cholesterol Urine pH Urine WBC (Auto) Urine Creatinine Urine Total Protein Fluid Total Protein Vancomycin Trough Rheumatoid Factor Complement C4 Miscellaneous Test Crossmatch 09/11/16 09/11/16 09/11/16 05:55 12:02 17:32 WBC RBC Hgb Hct MCV MCH MCHC RDW Plt Count Lymph % (Auto) Stone % (Auto) Lymph # Stone # Baso # Seg Neutrophils % Seg Neuts % (Manual) Lymphocytes % (Manual) Monocytes % (Manual) Eosinophils % (Manual) Basophils % (Manual) Nucleated RBC % Seg Neutrophils # Seg Neutrophils # Man Lymphocytes # (Manual) Monocytes # (Manual) Eosinophils # (Manual) PT INR Fibrinogen dRVVT Confirm Interp Factor V Activity POC ABG pH POC ABG pCO2 33.8 L POC ABG pO2 ABG pO2 ABG HCO3 ABG Hemoglobin Oxyhemoglobin Sodium Potassium Chloride Carbon Dioxide BUN Creatinine Glucose POC Glucose 191 H 239 H Lactic Acid Calcium Phosphorus Magnesium Direct Bilirubin AST ALT Alkaline Phosphatase Lactate Dehydrogenase Troponin T C-Reactive Protein Total Protein Albumin Prealbumin Triglycerides Cholesterol LDL Cholesterol Direct HDL Cholesterol Urine pH Urine WBC (Auto) Urine Creatinine Urine Total Protein Fluid Total Protein Vancomycin Trough Rheumatoid Factor Complement C4 Miscellaneous Test Crossmatch 09/11/16 09/12/16 09/12/16 23:52 05:09 05:32 WBC RBC Hgb Hct MCV MCH MCHC RDW Plt Count Lymph % (Auto) Stone % (Auto) Lymph # Stone # Baso # Seg Neutrophils % Seg Neuts % (Manual) Lymphocytes % (Manual) Monocytes % (Manual) Eosinophils % (Manual) Basophils % (Manual) Nucleated RBC % Seg Neutrophils # Seg Neutrophils # Man Lymphocytes # (Manual) Monocytes # (Manual) Eosinophils # (Manual) PT INR Fibrinogen dRVVT Confirm Interp Factor V Activity POC ABG pH POC ABG pCO2 34.6 L POC ABG pO2 ABG pO2 ABG HCO3 ABG Hemoglobin Oxyhemoglobin Sodium Potassium Chloride Carbon Dioxide BUN Creatinine Glucose POC Glucose 265 H 184 H Lactic Acid Calcium Phosphorus Magnesium Direct Bilirubin AST ALT Alkaline Phosphatase Lactate Dehydrogenase Troponin T C-Reactive Protein Total Protein Albumin Prealbumin Triglycerides Cholesterol LDL Cholesterol Direct HDL Cholesterol Urine pH Urine WBC (Auto) Urine Creatinine Urine Total Protein Fluid Total Protein Vancomycin Trough Rheumatoid Factor Complement C4 Miscellaneous Test Crossmatch 09/12/16 09/12/16 09/12/16 06:45 06:45 07:22 WBC 31.7 H RBC 3.54 L Hgb 8.3 L Hct 25.9 L MCV 73 L MCH 23 L MCHC RDW 18.9 H Plt Count Lymph % (Auto) Stone % (Auto) Lymph # Stone # Baso # Seg Neutrophils % Seg Neuts % (Manual) 88.5 H Lymphocytes % (Manual) 4.5 L Monocytes % (Manual) Eosinophils % (Manual) Basophils % (Manual) Nucleated RBC % Seg Neutrophils # Seg Neutrophils # Man 28.1 H Lymphocytes # (Manual) Monocytes # (Manual) 1.0 H Eosinophils # (Manual) PT INR Fibrinogen dRVVT Confirm Interp Factor V Activity POC ABG pH POC ABG pCO2 POC ABG pO2 ABG pO2 ABG HCO3 ABG Hemoglobin Oxyhemoglobin Sodium Potassium Chloride Carbon Dioxide 20 L BUN 115 H Creatinine 2.7 H Glucose 165 H POC Glucose Lactic Acid Calcium 8.0 L Phosphorus Magnesium Direct Bilirubin AST ALT Alkaline Phosphatase Lactate Dehydrogenase Troponin T C-Reactive Protein Total Protein Albumin Prealbumin Triglycerides 217 H Cholesterol LDL Cholesterol Direct HDL Cholesterol Urine pH Urine WBC (Auto) Urine Creatinine Urine Total Protein Fluid Total Protein Vancomycin Trough Rheumatoid Factor Complement C4 Miscellaneous Test Crossmatch 09/12/16 09/12/16 09/12/16 07:22 09:59 12:21 WBC RBC Hgb Hct MCV MCH MCHC RDW Plt Count Lymph % (Auto) Stone % (Auto) Lymph # Stone # Baso # Seg Neutrophils % Seg Neuts % (Manual) Lymphocytes % (Manual) Monocytes % (Manual) Eosinophils % (Manual) Basophils % (Manual) Nucleated RBC % Seg Neutrophils # Seg Neutrophils # Man Lymphocytes # (Manual) Monocytes # (Manual) Eosinophils # (Manual) PT INR Fibrinogen dRVVT Confirm Interp Positive H Factor V Activity POC ABG pH POC ABG pCO2 POC ABG pO2 ABG pO2 ABG HCO3 ABG Hemoglobin Oxyhemoglobin Sodium Potassium Chloride Carbon Dioxide BUN Creatinine Glucose POC Glucose 224 H Lactic Acid Calcium Phosphorus Magnesium Direct Bilirubin AST ALT Alkaline Phosphatase Lactate Dehydrogenase Troponin T C-Reactive Protein 1.70 H Total Protein Albumin Prealbumin Triglycerides Cholesterol LDL Cholesterol Direct HDL Cholesterol Urine pH Urine WBC (Auto) Urine Creatinine Urine Total Protein Fluid Total Protein Vancomycin Trough Rheumatoid Factor Complement C4 Miscellaneous Test Crossmatch 09/12/16 09/12/16 09/13/16 16:51 23:28 04:00 WBC 45.0 H* RBC Hgb 9.4 L Hct MCV 75 L MCH 23 L MCHC RDW 19.0 H Plt Count 470 H Lymph % (Auto) Stone % (Auto) Lymph # Stone # Baso # Seg Neutrophils % Seg Neuts % (Manual) 89.0 H Lymphocytes % (Manual) 5.0 L Monocytes % (Manual) Eosinophils % (Manual) Basophils % (Manual) Nucleated RBC % Seg Neutrophils # Seg Neutrophils # Man 40.1 H Lymphocytes # (Manual) Monocytes # (Manual) Eosinophils # (Manual) PT INR Fibrinogen dRVVT Confirm Interp Factor V Activity POC ABG pH POC ABG pCO2 POC ABG pO2 ABG pO2 ABG HCO3 ABG Hemoglobin Oxyhemoglobin Sodium Potassium Chloride Carbon Dioxide BUN Creatinine Glucose POC Glucose 169 H 150 H Lactic Acid Calcium Phosphorus Magnesium Direct Bilirubin AST ALT Alkaline Phosphatase Lactate Dehydrogenase Troponin T C-Reactive Protein Total Protein Albumin Prealbumin Triglycerides Cholesterol LDL Cholesterol Direct HDL Cholesterol Urine pH Urine WBC (Auto) Urine Creatinine Urine Total Protein Fluid Total Protein Vancomycin Trough Rheumatoid Factor Complement C4 Miscellaneous Test Crossmatch 09/13/16 09/13/16 09/13/16 04:00 11:26 17:31 WBC RBC Hgb Hct MCV MCH MCHC RDW Plt Count Lymph % (Auto) Stone % (Auto) Lymph # Stone # Baso # Seg Neutrophils % Seg Neuts % (Manual) Lymphocytes % (Manual) Monocytes % (Manual) Eosinophils % (Manual) Basophils % (Manual) Nucleated RBC % Seg Neutrophils # Seg Neutrophils # Man Lymphocytes # (Manual) Monocytes # (Manual) Eosinophils # (Manual) PT INR Fibrinogen dRVVT Confirm Interp Factor V Activity POC ABG pH POC ABG pCO2 POC ABG pO2 ABG pO2 ABG HCO3 ABG Hemoglobin Oxyhemoglobin Sodium Potassium Chloride Carbon Dioxide 20 L BUN 116 H Creatinine 3.0 H Glucose 172 H POC Glucose 140 H 183 H Lactic Acid Calcium Phosphorus Magnesium Direct Bilirubin AST ALT Alkaline Phosphatase Lactate Dehydrogenase Troponin T C-Reactive Protein Total Protein 6.2 L Albumin 2.9 L Prealbumin Triglycerides Cholesterol LDL Cholesterol Direct HDL Cholesterol Urine pH Urine WBC (Auto) Urine Creatinine Urine Total Protein Fluid Total Protein Vancomycin Trough Rheumatoid Factor Complement C4 Miscellaneous Test Crossmatch 09/13/16 09/14/16 09/14/16 23:23 04:06 04:07 WBC 29.4 H RBC Hgb 8.9 L Hct 27.3 L MCV 75 L MCH 24 L MCHC RDW 19.1 H Plt Count Lymph % (Auto) Stone % (Auto) Lymph # Stone # Baso # Seg Neutrophils % Seg Neuts % (Manual) 84.0 H Lymphocytes % (Manual) 6.0 L Monocytes % (Manual) 9.0 H Eosinophils % (Manual) Basophils % (Manual) Nucleated RBC % Seg Neutrophils # Seg Neutrophils # Man 24.7 H Lymphocytes # (Manual) Monocytes # (Manual) 2.6 H Eosinophils # (Manual) PT INR Fibrinogen dRVVT Confirm Interp Factor V Activity POC ABG pH 7.342 L POC ABG pCO2 POC ABG pO2 116 H ABG pO2 ABG HCO3 ABG Hemoglobin Oxyhemoglobin Sodium Potassium Chloride Carbon Dioxide BUN Creatinine Glucose POC Glucose 154 H Lactic Acid Calcium Phosphorus Magnesium Direct Bilirubin AST ALT Alkaline Phosphatase Lactate Dehydrogenase Troponin T C-Reactive Protein Total Protein Albumin Prealbumin Triglycerides Cholesterol LDL Cholesterol Direct HDL Cholesterol Urine pH Urine WBC (Auto) Urine Creatinine Urine Total Protein Fluid Total Protein Vancomycin Trough Rheumatoid Factor Complement C4 Miscellaneous Test Crossmatch 09/14/16 09/14/16 09/14/16 04:07 05:29 12:19 WBC RBC Hgb Hct MCV MCH MCHC RDW Plt Count Lymph % (Auto) Stone % (Auto) Lymph # Stone # Baso # Seg Neutrophils % Seg Neuts % (Manual) Lymphocytes % (Manual) Monocytes % (Manual) Eosinophils % (Manual) Basophils % (Manual) Nucleated RBC % Seg Neutrophils # Seg Neutrophils # Man Lymphocytes # (Manual) Monocytes # (Manual) Eosinophils # (Manual) PT INR Fibrinogen dRVVT Confirm Interp Factor V Activity POC ABG pH POC ABG pCO2 POC ABG pO2 ABG pO2 ABG HCO3 ABG Hemoglobin Oxyhemoglobin Sodium 136 L Potassium Chloride Carbon Dioxide 18 L BUN 121 H Creatinine 2.8 H Glucose 214 H POC Glucose 239 H 181 H Lactic Acid Calcium Phosphorus Magnesium Direct Bilirubin AST ALT Alkaline Phosphatase Lactate Dehydrogenase Troponin T C-Reactive Protein Total Protein Albumin Prealbumin Triglycerides Cholesterol LDL Cholesterol Direct HDL Cholesterol Urine pH Urine WBC (Auto) Urine Creatinine Urine Total Protein Fluid Total Protein Vancomycin Trough Rheumatoid Factor Complement C4 Miscellaneous Test Crossmatch 09/14/16 09/14/16 09/15/16 18:12 23:37 05:00 WBC 26.1 H RBC 3.05 L Hgb 7.2 L Hct 22.9 L MCV 75 L MCH 24 L MCHC RDW 19.0 H Plt Count Lymph % (Auto) Stone % (Auto) Lymph # Stone # Baso # Seg Neutrophils % Seg Neuts % (Manual) Lymphocytes % (Manual) Monocytes % (Manual) Eosinophils % (Manual) Basophils % (Manual) Nucleated RBC % Seg Neutrophils # Seg Neutrophils # Man Lymphocytes # (Manual) Monocytes # (Manual) Eosinophils # (Manual) PT INR Fibrinogen dRVVT Confirm Interp Factor V Activity POC ABG pH POC ABG pCO2 POC ABG pO2 ABG pO2 ABG HCO3 ABG Hemoglobin Oxyhemoglobin Sodium Potassium Chloride Carbon Dioxide BUN Creatinine Glucose POC Glucose 266 H 154 H Lactic Acid Calcium Phosphorus Magnesium Direct Bilirubin AST ALT Alkaline Phosphatase Lactate Dehydrogenase Troponin T C-Reactive Protein Total Protein Albumin Prealbumin Triglycerides Cholesterol LDL Cholesterol Direct HDL Cholesterol Urine pH Urine WBC (Auto) Urine Creatinine Urine Total Protein Fluid Total Protein Vancomycin Trough Rheumatoid Factor Complement C4 Miscellaneous Test Crossmatch 09/15/16 09/15/16 09/15/16 05:00 05:17 12:45 WBC RBC Hgb Hct MCV MCH MCHC RDW Plt Count Lymph % (Auto) Stone % (Auto) Lymph # Stone # Baso # Seg Neutrophils % Seg Neuts % (Manual) Lymphocytes % (Manual) Monocytes % (Manual) Eosinophils % (Manual) Basophils % (Manual) Nucleated RBC % Seg Neutrophils # Seg Neutrophils # Man Lymphocytes # (Manual) Monocytes # (Manual) Eosinophils # (Manual) PT INR Fibrinogen dRVVT Confirm Interp Factor V Activity POC ABG pH POC ABG pCO2 POC ABG pO2 ABG pO2 ABG HCO3 ABG Hemoglobin Oxyhemoglobin Sodium Potassium 5.2 H Chloride Carbon Dioxide 18 L BUN 139 H Creatinine 3.7 H Glucose 227 H POC Glucose 226 H 244 H Lactic Acid Calcium 8.3 L Phosphorus Magnesium Direct Bilirubin AST ALT Alkaline Phosphatase Lactate Dehydrogenase Troponin T C-Reactive Protein Total Protein Albumin Prealbumin Triglycerides Cholesterol LDL Cholesterol Direct HDL Cholesterol Urine pH Urine WBC (Auto) Urine Creatinine Urine Total Protein Fluid Total Protein Vancomycin Trough Rheumatoid Factor Complement C4 Miscellaneous Test Crossmatch 09/15/16 09/15/16 09/15/16 14:32 17:33 23:35 WBC RBC Hgb Hct MCV MCH MCHC RDW Plt Count Lymph % (Auto) Stone % (Auto) Lymph # Stone # Baso # Seg Neutrophils % Seg Neuts % (Manual) Lymphocytes % (Manual) Monocytes % (Manual) Eosinophils % (Manual) Basophils % (Manual) Nucleated RBC % Seg Neutrophils # Seg Neutrophils # Man Lymphocytes # (Manual) Monocytes # (Manual) Eosinophils # (Manual) PT INR Fibrinogen dRVVT Confirm Interp Factor V Activity POC ABG pH POC ABG pCO2 27.7 L POC ABG pO2 120 H ABG pO2 ABG HCO3 ABG Hemoglobin Oxyhemoglobin Sodium Potassium Chloride Carbon Dioxide BUN Creatinine Glucose POC Glucose 232 H 167 H Lactic Acid Calcium Phosphorus Magnesium Direct Bilirubin AST ALT Alkaline Phosphatase Lactate Dehydrogenase Troponin T C-Reactive Protein Total Protein Albumin Prealbumin Triglycerides Cholesterol LDL Cholesterol Direct HDL Cholesterol Urine pH Urine WBC (Auto) Urine Creatinine Urine Total Protein Fluid Total Protein Vancomycin Trough Rheumatoid Factor Complement C4 Miscellaneous Test Crossmatch 09/16/16 09/16/16 09/16/16 03:58 10:27 10:27 WBC 19.0 H RBC 2.77 L Hgb 6.5 L Hct 20.9 L MCV 76 L MCH 23 L MCHC RDW 19.3 H Plt Count Lymph % (Auto) 11.0 L Stone % (Auto) Lymph # Stone # 1.1 H Baso # Seg Neutrophils % 82.5 H Seg Neuts % (Manual) Lymphocytes % (Manual) Monocytes % (Manual) Eosinophils % (Manual) Basophils % (Manual) Nucleated RBC % Seg Neutrophils # 15.7 H Seg Neutrophils # Man Lymphocytes # (Manual) Monocytes # (Manual) Eosinophils # (Manual) PT INR Fibrinogen dRVVT Confirm Interp Factor V Activity POC ABG pH POC ABG pCO2 POC ABG pO2 ABG pO2 ABG HCO3 ABG Hemoglobin Oxyhemoglobin Sodium Potassium Chloride 109.3 H Carbon Dioxide 18 L BUN 139 H Creatinine 4.1 H Glucose 144 H POC Glucose 146 H Lactic Acid Calcium 8.1 L Phosphorus Magnesium Direct Bilirubin AST ALT Alkaline Phosphatase Lactate Dehydrogenase Troponin T C-Reactive Protein Total Protein Albumin Prealbumin Triglycerides Cholesterol LDL Cholesterol Direct HDL Cholesterol Urine pH Urine WBC (Auto) Urine Creatinine Urine Total Protein Fluid Total Protein Vancomycin Trough Rheumatoid Factor Complement C4 Miscellaneous Test Crossmatch 09/16/16 09/16/16 09/16/16 12:04 12:10 13:55 WBC RBC Hgb Hct MCV MCH MCHC RDW Plt Count Lymph % (Auto) Stone % (Auto) Lymph # Stone # Baso # Seg Neutrophils % Seg Neuts % (Manual) Lymphocytes % (Manual) Monocytes % (Manual) Eosinophils % (Manual) Basophils % (Manual) Nucleated RBC % Seg Neutrophils # Seg Neutrophils # Man Lymphocytes # (Manual) Monocytes # (Manual) Eosinophils # (Manual) PT INR Fibrinogen dRVVT Confirm Interp Factor V Activity POC ABG pH POC ABG pCO2 32.9 L POC ABG pO2 ABG pO2 ABG HCO3 ABG Hemoglobin Oxyhemoglobin Sodium Potassium Chloride Carbon Dioxide BUN Creatinine Glucose POC Glucose 185 H Lactic Acid Calcium Phosphorus Magnesium Direct Bilirubin AST ALT Alkaline Phosphatase Lactate Dehydrogenase Troponin T C-Reactive Protein Total Protein Albumin Prealbumin Triglycerides Cholesterol LDL Cholesterol Direct HDL Cholesterol Urine pH Urine WBC (Auto) Urine Creatinine Urine Total Protein Fluid Total Protein Vancomycin Trough Rheumatoid Factor Complement C4 Miscellaneous Test Crossmatch See Detail 09/16/16 09/16/16 09/16/16 17:55 19:19 23:48 WBC RBC Hgb Hct MCV MCH MCHC RDW Plt Count Lymph % (Auto) Stone % (Auto) Lymph # Stone # Baso # Seg Neutrophils % Seg Neuts % (Manual) Lymphocytes % (Manual) Monocytes % (Manual) Eosinophils % (Manual) Basophils % (Manual) Nucleated RBC % Seg Neutrophils # Seg Neutrophils # Man Lymphocytes # (Manual) Monocytes # (Manual) Eosinophils # (Manual) PT INR Fibrinogen dRVVT Confirm Interp Factor V Activity POC ABG pH POC ABG pCO2 POC ABG pO2 ABG pO2 ABG HCO3 ABG Hemoglobin Oxyhemoglobin Sodium Potassium Chloride Carbon Dioxide BUN Creatinine Glucose POC Glucose 222 H 107 H Lactic Acid Calcium Phosphorus Magnesium Direct Bilirubin AST ALT Alkaline Phosphatase Lactate Dehydrogenase Troponin T C-Reactive Protein Total Protein Albumin Prealbumin Triglycerides Cholesterol LDL Cholesterol Direct HDL Cholesterol Urine pH Urine WBC (Auto) Urine Creatinine 47.4 H Urine Total Protein 16 H Fluid Total Protein Vancomycin Trough Rheumatoid Factor Complement C4 Miscellaneous Test Crossmatch 09/17/16 09/17/16 09/17/16 03:45 03:45 04:55 WBC 19.6 H RBC 3.41 L Hgb 8.5 L Hct 26.7 L MCV 78 L MCH 25 L MCHC RDW 19.9 H Plt Count Lymph % (Auto) 9.3 L Stone % (Auto) Lymph # Stone # 1.2 H Baso # Seg Neutrophils % 83.9 H Seg Neuts % (Manual) Lymphocytes % (Manual) Monocytes % (Manual) Eosinophils % (Manual) Basophils % (Manual) Nucleated RBC % Seg Neutrophils # 16.4 H Seg Neutrophils # Man Lymphocytes # (Manual) Monocytes # (Manual) Eosinophils # (Manual) PT INR Fibrinogen dRVVT Confirm Interp Factor V Activity POC ABG pH POC ABG pCO2 POC ABG pO2 ABG pO2 ABG HCO3 ABG Hemoglobin Oxyhemoglobin Sodium 146 H Potassium 5.1 H Chloride 110.9 H Carbon Dioxide 16 L BUN 146 H Creatinine 4.0 H Glucose 108 H POC Glucose 133 H Lactic Acid Calcium Phosphorus Magnesium 3.00 H Direct Bilirubin AST ALT Alkaline Phosphatase Lactate Dehydrogenase Troponin T C-Reactive Protein Total Protein Albumin Prealbumin Triglycerides Cholesterol LDL Cholesterol Direct HDL Cholesterol Urine pH Urine WBC (Auto) Urine Creatinine Urine Total Protein Fluid Total Protein Vancomycin Trough Rheumatoid Factor Complement C4 Miscellaneous Test Crossmatch 09/17/16 09/17/16 09/17/16 11:15 17:33 23:47 WBC RBC Hgb Hct MCV MCH MCHC RDW Plt Count Lymph % (Auto) Stone % (Auto) Lymph # Stone # Baso # Seg Neutrophils % Seg Neuts % (Manual) Lymphocytes % (Manual) Monocytes % (Manual) Eosinophils % (Manual) Basophils % (Manual) Nucleated RBC % Seg Neutrophils # Seg Neutrophils # Man Lymphocytes # (Manual) Monocytes # (Manual) Eosinophils # (Manual) PT INR Fibrinogen dRVVT Confirm Interp Factor V Activity POC ABG pH POC ABG pCO2 POC ABG pO2 ABG pO2 ABG HCO3 ABG Hemoglobin Oxyhemoglobin Sodium Potassium Chloride Carbon Dioxide BUN Creatinine Glucose POC Glucose 176 H 246 H 148 H Lactic Acid Calcium Phosphorus Magnesium Direct Bilirubin AST ALT Alkaline Phosphatase Lactate Dehydrogenase Troponin T C-Reactive Protein Total Protein Albumin Prealbumin Triglycerides Cholesterol LDL Cholesterol Direct HDL Cholesterol Urine pH Urine WBC (Auto) Urine Creatinine Urine Total Protein Fluid Total Protein Vancomycin Trough Rheumatoid Factor Complement C4 Miscellaneous Test Crossmatch 09/18/16 09/18/16 09/18/16 05:33 08:31 08:31 WBC 18.0 H RBC 3.17 L Hgb 9.0 L Hct 25.7 L MCV MCH MCHC 35 H RDW 20.4 H Plt Count Lymph % (Auto) Stone % (Auto) Lymph # Stone # Baso # Seg Neutrophils % Seg Neuts % (Manual) Lymphocytes % (Manual) Monocytes % (Manual) Eosinophils % (Manual) Basophils % (Manual) Nucleated RBC % Seg Neutrophils # Seg Neutrophils # Man Lymphocytes # (Manual) Monocytes # (Manual) Eosinophils # (Manual) PT INR Fibrinogen dRVVT Confirm Interp Factor V Activity POC ABG pH POC ABG pCO2 POC ABG pO2 ABG pO2 ABG HCO3 ABG Hemoglobin Oxyhemoglobin Sodium Potassium Chloride Carbon Dioxide 15 L BUN 124 H Creatinine 3.8 H Glucose POC Glucose 120 H Lactic Acid Calcium 8.1 L Phosphorus Magnesium Direct Bilirubin AST ALT Alkaline Phosphatase Lactate Dehydrogenase Troponin T C-Reactive Protein Total Protein Albumin Prealbumin Triglycerides Cholesterol LDL Cholesterol Direct HDL Cholesterol Urine pH Urine WBC (Auto) Urine Creatinine Urine Total Protein Fluid Total Protein Vancomycin Trough Rheumatoid Factor Complement C4 Miscellaneous Test Crossmatch 09/18/16 09/18/16 09/18/16 12:03 15:34 17:50 WBC RBC Hgb Hct MCV MCH MCHC RDW Plt Count Lymph % (Auto) Stone % (Auto) Lymph # Stone # Baso # Seg Neutrophils % Seg Neuts % (Manual) Lymphocytes % (Manual) Monocytes % (Manual) Eosinophils % (Manual) Basophils % (Manual) Nucleated RBC % Seg Neutrophils # Seg Neutrophils # Man Lymphocytes # (Manual) Monocytes # (Manual) Eosinophils # (Manual) PT INR Fibrinogen dRVVT Confirm Interp Factor V Activity POC ABG pH POC ABG pCO2 25.7 L POC ABG pO2 66 L ABG pO2 ABG HCO3 ABG Hemoglobin Oxyhemoglobin Sodium Potassium Chloride Carbon Dioxide BUN Creatinine Glucose POC Glucose 156 H 220 H Lactic Acid Calcium Phosphorus Magnesium Direct Bilirubin AST ALT Alkaline Phosphatase Lactate Dehydrogenase Troponin T C-Reactive Protein Total Protein Albumin Prealbumin Triglycerides Cholesterol LDL Cholesterol Direct HDL Cholesterol Urine pH Urine WBC (Auto) Urine Creatinine Urine Total Protein Fluid Total Protein Vancomycin Trough Rheumatoid Factor Complement C4 Miscellaneous Test Crossmatch 09/19/16 09/19/16 09/19/16 06:21 09:50 09:50 WBC 17.1 H RBC 3.49 L Hgb 9.0 L Hct 28.1 L MCV MCH 26 L MCHC RDW 20.8 H Plt Count Lymph % (Auto) 11.5 L Stone % (Auto) 7.5 H Lymph # Stone # 1.3 H Baso # Seg Neutrophils % 79.8 H Seg Neuts % (Manual) Lymphocytes % (Manual) Monocytes % (Manual) Eosinophils % (Manual) Basophils % (Manual) Nucleated RBC % Seg Neutrophils # 13.7 H Seg Neutrophils # Man Lymphocytes # (Manual) Monocytes # (Manual) Eosinophils # (Manual) PT INR Fibrinogen dRVVT Confirm Interp Factor V Activity POC ABG pH POC ABG pCO2 POC ABG pO2 ABG pO2 ABG HCO3 ABG Hemoglobin Oxyhemoglobin Sodium Potassium Chloride 108.6 H Carbon Dioxide 15 L BUN 125 H Creatinine 4.1 H Glucose 124 H POC Glucose 119 H Lactic Acid Calcium Phosphorus Magnesium Direct Bilirubin AST ALT Alkaline Phosphatase Lactate Dehydrogenase Troponin T C-Reactive Protein Total Protein Albumin Prealbumin Triglycerides Cholesterol LDL Cholesterol Direct HDL Cholesterol Urine pH Urine WBC (Auto) Urine Creatinine Urine Total Protein Fluid Total Protein Vancomycin Trough Rheumatoid Factor Complement C4 Miscellaneous Test Crossmatch 09/19/16 09/19/16 09/19/16 11:25 17:53 23:36 WBC RBC Hgb Hct MCV MCH MCHC RDW Plt Count Lymph % (Auto) Stone % (Auto) Lymph # Stone # Baso # Seg Neutrophils % Seg Neuts % (Manual) Lymphocytes % (Manual) Monocytes % (Manual) Eosinophils % (Manual) Basophils % (Manual) Nucleated RBC % Seg Neutrophils # Seg Neutrophils # Man Lymphocytes # (Manual) Monocytes # (Manual) Eosinophils # (Manual) PT INR Fibrinogen dRVVT Confirm Interp Factor V Activity POC ABG pH POC ABG pCO2 POC ABG pO2 ABG pO2 ABG HCO3 ABG Hemoglobin Oxyhemoglobin Sodium Potassium Chloride Carbon Dioxide BUN Creatinine Glucose POC Glucose 160 H 245 H 121 H Lactic Acid Calcium Phosphorus Magnesium Direct Bilirubin AST ALT Alkaline Phosphatase Lactate Dehydrogenase Troponin T C-Reactive Protein Total Protein Albumin Prealbumin Triglycerides Cholesterol LDL Cholesterol Direct HDL Cholesterol Urine pH Urine WBC (Auto) Urine Creatinine Urine Total Protein Fluid Total Protein Vancomycin Trough Rheumatoid Factor Complement C4 Miscellaneous Test Crossmatch 09/20/16 09/20/16 09/20/16 04:10 04:10 04:10 WBC 17.0 H RBC 3.21 L Hgb 8.2 L Hct 25.5 L MCV MCH 26 L MCHC RDW 20.9 H Plt Count Lymph % (Auto) Stone % (Auto) Lymph # Stone # Baso # Seg Neutrophils % Seg Neuts % (Manual) Lymphocytes % (Manual) Monocytes % (Manual) Eosinophils % (Manual) Basophils % (Manual) Nucleated RBC % Seg Neutrophils # Seg Neutrophils # Man Lymphocytes # (Manual) Monocytes # (Manual) Eosinophils # (Manual) PT INR Fibrinogen dRVVT Confirm Interp Factor V Activity POC ABG pH POC ABG pCO2 POC ABG pO2 ABG pO2 ABG HCO3 ABG Hemoglobin Oxyhemoglobin Sodium Potassium Chloride 111.0 H Carbon Dioxide 16 L BUN 129 H Creatinine 3.7 H Glucose 115 H POC Glucose Lactic Acid Calcium 8.2 L Phosphorus Magnesium Direct Bilirubin AST ALT Alkaline Phosphatase Lactate Dehydrogenase Troponin T C-Reactive Protein Total Protein Albumin Prealbumin Triglycerides 243 H Cholesterol LDL Cholesterol Direct HDL Cholesterol Urine pH Urine WBC (Auto) Urine Creatinine Urine Total Protein Fluid Total Protein Vancomycin Trough Rheumatoid Factor Complement C4 Miscellaneous Test Crossmatch 09/20/16 09/20/16 09/20/16 05:40 11:52 16:50 WBC RBC Hgb Hct MCV MCH MCHC RDW Plt Count Lymph % (Auto) Stone % (Auto) Lymph # Stone # Baso # Seg Neutrophils % Seg Neuts % (Manual) Lymphocytes % (Manual) Monocytes % (Manual) Eosinophils % (Manual) Basophils % (Manual) Nucleated RBC % Seg Neutrophils # Seg Neutrophils # Man Lymphocytes # (Manual) Monocytes # (Manual) Eosinophils # (Manual) PT INR Fibrinogen dRVVT Confirm Interp Factor V Activity POC ABG pH POC ABG pCO2 POC ABG pO2 ABG pO2 ABG HCO3 ABG Hemoglobin Oxyhemoglobin Sodium Potassium Chloride Carbon Dioxide BUN Creatinine Glucose POC Glucose 131 H 183 H 236 H Lactic Acid Calcium Phosphorus Magnesium Direct Bilirubin AST ALT Alkaline Phosphatase Lactate Dehydrogenase Troponin T C-Reactive Protein Total Protein Albumin Prealbumin Triglycerides Cholesterol LDL Cholesterol Direct HDL Cholesterol Urine pH Urine WBC (Auto) Urine Creatinine Urine Total Protein Fluid Total Protein Vancomycin Trough Rheumatoid Factor Complement C4 Miscellaneous Test Crossmatch 09/20/16 09/21/16 09/21/16 23:51 03:30 04:44 WBC RBC Hgb Hct MCV MCH MCHC RDW Plt Count Lymph % (Auto) Stone % (Auto) Lymph # Stone # Baso # Seg Neutrophils % Seg Neuts % (Manual) Lymphocytes % (Manual) Monocytes % (Manual) Eosinophils % (Manual) Basophils % (Manual) Nucleated RBC % Seg Neutrophils # Seg Neutrophils # Man Lymphocytes # (Manual) Monocytes # (Manual) Eosinophils # (Manual) PT INR Fibrinogen dRVVT Confirm Interp Factor V Activity POC ABG pH POC ABG pCO2 POC ABG pO2 ABG pO2 ABG HCO3 ABG Hemoglobin Oxyhemoglobin Sodium Potassium Chloride Carbon Dioxide BUN Creatinine Glucose POC Glucose 114 H 141 H Lactic Acid Calcium Phosphorus Magnesium 2.70 H Direct Bilirubin AST ALT Alkaline Phosphatase Lactate Dehydrogenase Troponin T C-Reactive Protein Total Protein Albumin Prealbumin Triglycerides Cholesterol LDL Cholesterol Direct HDL Cholesterol Urine pH Urine WBC (Auto) Urine Creatinine Urine Total Protein Fluid Total Protein Vancomycin Trough Rheumatoid Factor Complement C4 Miscellaneous Test Crossmatch 09/21/16 09/21/16 09/21/16 07:45 07:45 10:01 WBC 13.8 H RBC 2.94 L Hgb 7.5 L Hct 23.5 L MCV MCH 26 L MCHC RDW 21.2 H Plt Count Lymph % (Auto) 6.9 L Stone % (Auto) 9.4 H Lymph # 0.9 L Stone # 1.3 H Baso # Seg Neutrophils % 83.2 H Seg Neuts % (Manual) Lymphocytes % (Manual) Monocytes % (Manual) Eosinophils % (Manual) Basophils % (Manual) Nucleated RBC % Seg Neutrophils # 11.5 H Seg Neutrophils # Man Lymphocytes # (Manual) Monocytes # (Manual) Eosinophils # (Manual) PT INR Fibrinogen dRVVT Confirm Interp Factor V Activity POC ABG pH 7.308 L POC ABG pCO2 31.9 L POC ABG pO2 148 H ABG pO2 ABG HCO3 ABG Hemoglobin Oxyhemoglobin Sodium 147 H Potassium Chloride 114.2 H Carbon Dioxide 15 L BUN 120 H Creatinine 3.9 H Glucose 156 H POC Glucose Lactic Acid Calcium 8.2 L Phosphorus Magnesium Direct Bilirubin AST ALT Alkaline Phosphatase Lactate Dehydrogenase Troponin T C-Reactive Protein Total Protein Albumin Prealbumin Triglycerides Cholesterol LDL Cholesterol Direct HDL Cholesterol Urine pH Urine WBC (Auto) Urine Creatinine Urine Total Protein Fluid Total Protein Vancomycin Trough Rheumatoid Factor Complement C4 Miscellaneous Test Crossmatch 09/21/16 09/21/16 09/21/16 12:00 12:03 13:00 WBC RBC Hgb Hct MCV MCH MCHC RDW Plt Count Lymph % (Auto) Stone % (Auto) Lymph # Stone # Baso # Seg Neutrophils % Seg Neuts % (Manual) Lymphocytes % (Manual) Monocytes % (Manual) Eosinophils % (Manual) Basophils % (Manual) Nucleated RBC % Seg Neutrophils # Seg Neutrophils # Man Lymphocytes # (Manual) Monocytes # (Manual) Eosinophils # (Manual) PT INR Fibrinogen dRVVT Confirm Interp Factor V Activity POC ABG pH POC ABG pCO2 POC ABG pO2 ABG pO2 ABG HCO3 ABG Hemoglobin Oxyhemoglobin Sodium Potassium Chloride Carbon Dioxide BUN Creatinine Glucose POC Glucose 163 H Lactic Acid Calcium Phosphorus Magnesium Direct Bilirubin AST ALT Alkaline Phosphatase Lactate Dehydrogenase Troponin T C-Reactive Protein Total Protein Albumin Prealbumin Triglycerides Cholesterol LDL Cholesterol Direct HDL Cholesterol Urine pH Urine WBC (Auto) Urine Creatinine 54.8 H Urine Total Protein Fluid Total Protein Vancomycin Trough 2.3 L Rheumatoid Factor Complement C4 Miscellaneous Test Crossmatch 09/21/16 09/21/16 09/22/16 16:51 23:17 06:27 WBC RBC Hgb Hct MCV MCH MCHC RDW Plt Count Lymph % (Auto) Stone % (Auto) Lymph # Stone # Baso # Seg Neutrophils % Seg Neuts % (Manual) Lymphocytes % (Manual) Monocytes % (Manual) Eosinophils % (Manual) Basophils % (Manual) Nucleated RBC % Seg Neutrophils # Seg Neutrophils # Man Lymphocytes # (Manual) Monocytes # (Manual) Eosinophils # (Manual) PT INR Fibrinogen dRVVT Confirm Interp Factor V Activity POC ABG pH POC ABG pCO2 POC ABG pO2 ABG pO2 ABG HCO3 ABG Hemoglobin Oxyhemoglobin Sodium Potassium Chloride Carbon Dioxide BUN Creatinine Glucose POC Glucose 206 H 114 H 115 H Lactic Acid Calcium Phosphorus Magnesium Direct Bilirubin AST ALT Alkaline Phosphatase Lactate Dehydrogenase Troponin T C-Reactive Protein Total Protein Albumin Prealbumin Triglycerides Cholesterol LDL Cholesterol Direct HDL Cholesterol Urine pH Urine WBC (Auto) Urine Creatinine Urine Total Protein Fluid Total Protein Vancomycin Trough Rheumatoid Factor Complement C4 Miscellaneous Test Crossmatch 09/22/16 09/22/16 09/22/16 07:50 07:50 12:00 WBC 17.8 H RBC 3.04 L Hgb 8.0 L Hct 24.7 L MCV MCH 26 L MCHC RDW 21.6 H Plt Count Lymph % (Auto) Stone % (Auto) Lymph # Stone # Baso # Seg Neutrophils % Seg Neuts % (Manual) Lymphocytes % (Manual) Monocytes % (Manual) Eosinophils % (Manual) Basophils % (Manual) Nucleated RBC % Seg Neutrophils # Seg Neutrophils # Man Lymphocytes # (Manual) Monocytes # (Manual) Eosinophils # (Manual) PT INR Fibrinogen dRVVT Confirm Interp Factor V Activity POC ABG pH POC ABG pCO2 POC ABG pO2 ABG pO2 ABG HCO3 ABG Hemoglobin Oxyhemoglobin Sodium 150 H Potassium Chloride 118.2 H Carbon Dioxide 14 L BUN 111 H Creatinine 3.7 H Glucose 157 H POC Glucose 183 H Lactic Acid Calcium Phosphorus Magnesium Direct Bilirubin AST ALT Alkaline Phosphatase Lactate Dehydrogenase Troponin T C-Reactive Protein Total Protein Albumin Prealbumin Triglycerides Cholesterol LDL Cholesterol Direct HDL Cholesterol Urine pH Urine WBC (Auto) Urine Creatinine Urine Total Protein Fluid Total Protein Vancomycin Trough Rheumatoid Factor Complement C4 Miscellaneous Test Crossmatch 09/22/16 09/22/16 09/23/16 17:29 23:10 05:00 WBC 19.2 H RBC 3.13 L Hgb 8.0 L Hct 25.2 L MCV MCH 26 L MCHC RDW 22.1 H Plt Count Lymph % (Auto) Stone % (Auto) Lymph # Stone # Baso # Seg Neutrophils % Seg Neuts % (Manual) 92.0 H Lymphocytes % (Manual) 3.0 L Monocytes % (Manual) Eosinophils % (Manual) Basophils % (Manual) Nucleated RBC % Seg Neutrophils # Seg Neutrophils # Man 17.7 H Lymphocytes # (Manual) 0.6 L Monocytes # (Manual) Eosinophils # (Manual) PT INR Fibrinogen dRVVT Confirm Interp Factor V Activity POC ABG pH POC ABG pCO2 POC ABG pO2 ABG pO2 ABG HCO3 ABG Hemoglobin Oxyhemoglobin Sodium Potassium Chloride Carbon Dioxide BUN Creatinine Glucose POC Glucose 197 H 169 H Lactic Acid Calcium Phosphorus Magnesium Direct Bilirubin AST ALT Alkaline Phosphatase Lactate Dehydrogenase Troponin T C-Reactive Protein Total Protein Albumin Prealbumin Triglycerides Cholesterol LDL Cholesterol Direct HDL Cholesterol Urine pH Urine WBC (Auto) Urine Creatinine Urine Total Protein Fluid Total Protein Vancomycin Trough Rheumatoid Factor Complement C4 Miscellaneous Test Crossmatch 09/23/16 09/23/16 09/23/16 05:00 05:00 05:10 WBC RBC Hgb Hct MCV MCH MCHC RDW Plt Count Lymph % (Auto) Stone % (Auto) Lymph # Stone # Baso # Seg Neutrophils % Seg Neuts % (Manual) Lymphocytes % (Manual) Monocytes % (Manual) Eosinophils % (Manual) Basophils % (Manual) Nucleated RBC % Seg Neutrophils # Seg Neutrophils # Man Lymphocytes # (Manual) Monocytes # (Manual) Eosinophils # (Manual) PT INR Fibrinogen dRVVT Confirm Interp Factor V Activity POC ABG pH POC ABG pCO2 POC ABG pO2 ABG pO2 ABG HCO3 ABG Hemoglobin Oxyhemoglobin Sodium 147 H Potassium 3.2 L Chloride 115.7 H Carbon Dioxide 13 L BUN 111 H Creatinine 3.8 H Glucose 194 H POC Glucose 188 H Lactic Acid Calcium 7.3 L D Phosphorus Magnesium Direct Bilirubin AST ALT Alkaline Phosphatase Lactate Dehydrogenase Troponin T C-Reactive Protein 3.20 H Total Protein Albumin Prealbumin Triglycerides Cholesterol LDL Cholesterol Direct HDL Cholesterol Urine pH Urine WBC (Auto) Urine Creatinine Urine Total Protein Fluid Total Protein Vancomycin Trough Rheumatoid Factor Complement C4 Miscellaneous Test Crossmatch 09/23/16 09/23/16 09/23/16 11:37 12:29 18:01 WBC RBC Hgb Hct MCV MCH MCHC RDW Plt Count Lymph % (Auto) Stone % (Auto) Lymph # Stone # Baso # Seg Neutrophils % Seg Neuts % (Manual) Lymphocytes % (Manual) Monocytes % (Manual) Eosinophils % (Manual) Basophils % (Manual) Nucleated RBC % Seg Neutrophils # Seg Neutrophils # Man Lymphocytes # (Manual) Monocytes # (Manual) Eosinophils # (Manual) PT INR Fibrinogen dRVVT Confirm Interp Factor V Activity POC ABG pH POC ABG pCO2 18.9 L POC ABG pO2 143 H ABG pO2 ABG HCO3 ABG Hemoglobin Oxyhemoglobin Sodium Potassium Chloride Carbon Dioxide BUN Creatinine Glucose POC Glucose 153 H 108 H Lactic Acid Calcium Phosphorus Magnesium Direct Bilirubin AST ALT Alkaline Phosphatase Lactate Dehydrogenase Troponin T C-Reactive Protein Total Protein Albumin Prealbumin Triglycerides Cholesterol LDL Cholesterol Direct HDL Cholesterol Urine pH Urine WBC (Auto) Urine Creatinine Urine Total Protein Fluid Total Protein Vancomycin Trough Rheumatoid Factor Complement C4 Miscellaneous Test Crossmatch 09/23/16 09/23/16 09/24/16 21:19 23:43 05:16 WBC RBC Hgb Hct MCV MCH MCHC RDW Plt Count Lymph % (Auto) Stone % (Auto) Lymph # Stone # Baso # Seg Neutrophils % Seg Neuts % (Manual) Lymphocytes % (Manual) Monocytes % (Manual) Eosinophils % (Manual) Basophils % (Manual) Nucleated RBC % Seg Neutrophils # Seg Neutrophils # Man Lymphocytes # (Manual) Monocytes # (Manual) Eosinophils # (Manual) PT INR Fibrinogen dRVVT Confirm Interp Factor V Activity POC ABG pH POC ABG pCO2 17.3 L POC ABG pO2 112 H ABG pO2 ABG HCO3 ABG Hemoglobin Oxyhemoglobin Sodium Potassium Chloride Carbon Dioxide BUN Creatinine Glucose POC Glucose 143 H 164 H Lactic Acid Calcium Phosphorus Magnesium Direct Bilirubin AST ALT Alkaline Phosphatase Lactate Dehydrogenase Troponin T C-Reactive Protein Total Protein Albumin Prealbumin Triglycerides Cholesterol LDL Cholesterol Direct HDL Cholesterol Urine pH Urine WBC (Auto) Urine Creatinine Urine Total Protein Fluid Total Protein Vancomycin Trough Rheumatoid Factor Complement C4 Miscellaneous Test Crossmatch 09/24/16 09/24/16 09/24/16 05:21 11:58 17:06 WBC RBC Hgb Hct MCV MCH MCHC RDW Plt Count Lymph % (Auto) Stone % (Auto) Lymph # Stone # Baso # Seg Neutrophils % Seg Neuts % (Manual) Lymphocytes % (Manual) Monocytes % (Manual) Eosinophils % (Manual) Basophils % (Manual) Nucleated RBC % Seg Neutrophils # Seg Neutrophils # Man Lymphocytes # (Manual) Monocytes # (Manual) Eosinophils # (Manual) PT INR Fibrinogen dRVVT Confirm Interp Factor V Activity POC ABG pH POC ABG pCO2 POC ABG pO2 ABG pO2 ABG HCO3 ABG Hemoglobin Oxyhemoglobin Sodium Potassium Chloride Carbon Dioxide 10 L BUN 103 H Creatinine 4.3 H Glucose 163 H POC Glucose 173 H 167 H Lactic Acid Calcium 6.5 L Phosphorus Magnesium Direct Bilirubin AST ALT Alkaline Phosphatase Lactate Dehydrogenase Troponin T C-Reactive Protein Total Protein Albumin Prealbumin Triglycerides Cholesterol LDL Cholesterol Direct HDL Cholesterol Urine pH Urine WBC (Auto) Urine Creatinine Urine Total Protein Fluid Total Protein Vancomycin Trough Rheumatoid Factor Complement C4 Miscellaneous Test Crossmatch 09/24/16 09/24/16 09/24/16 20:15 21:02 23:48 WBC RBC Hgb Hct MCV MCH MCHC RDW Plt Count Lymph % (Auto) Stone % (Auto) Lymph # Stone # Baso # Seg Neutrophils % Seg Neuts % (Manual) Lymphocytes % (Manual) Monocytes % (Manual) Eosinophils % (Manual) Basophils % (Manual) Nucleated RBC % Seg Neutrophils # Seg Neutrophils # Man Lymphocytes # (Manual) Monocytes # (Manual) Eosinophils # (Manual) PT INR Fibrinogen dRVVT Confirm Interp Factor V Activity POC ABG pH 7.288 L POC ABG pCO2 30.2 L 21.5 L POC ABG pO2 32 L 39 L ABG pO2 ABG HCO3 ABG Hemoglobin Oxyhemoglobin Sodium Potassium Chloride Carbon Dioxide BUN Creatinine Glucose POC Glucose 109 H Lactic Acid Calcium Phosphorus Magnesium Direct Bilirubin AST ALT Alkaline Phosphatase Lactate Dehydrogenase Troponin T C-Reactive Protein Total Protein Albumin Prealbumin Triglycerides Cholesterol LDL Cholesterol Direct HDL Cholesterol Urine pH Urine WBC (Auto) Urine Creatinine Urine Total Protein Fluid Total Protein Vancomycin Trough Rheumatoid Factor Complement C4 Miscellaneous Test Crossmatch 09/25/16 09/25/16 09/25/16 04:20 04:20 04:20 WBC RBC 2.58 L Hgb 7.0 L Hct 21.0 L MCV MCH 27 L MCHC RDW 23.8 H Plt Count Lymph % (Auto) Stone % (Auto) Lymph # Stone # Baso # Seg Neutrophils % Seg Neuts % (Manual) Lymphocytes % (Manual) 12.0 L Monocytes % (Manual) Eosinophils % (Manual) 7.0 H Basophils % (Manual) 2.0 H Nucleated RBC % Seg Neutrophils # Seg Neutrophils # Man Lymphocytes # (Manual) 0.9 L Monocytes # (Manual) Eosinophils # (Manual) 0.5 H PT INR Fibrinogen dRVVT Confirm Interp Factor V Activity POC ABG pH POC ABG pCO2 POC ABG pO2 ABG pO2 ABG HCO3 ABG Hemoglobin Oxyhemoglobin Sodium Potassium Chloride Carbon Dioxide 15 L BUN 72 H Creatinine 3.8 H Glucose POC Glucose Lactic Acid Calcium 6.0 L Phosphorus 4.60 H Magnesium 1.60 L Direct Bilirubin AST ALT Alkaline Phosphatase Lactate Dehydrogenase Troponin T C-Reactive Protein Total Protein Albumin Prealbumin Triglycerides Cholesterol LDL Cholesterol Direct HDL Cholesterol Urine pH Urine WBC (Auto) Urine Creatinine Urine Total Protein Fluid Total Protein Vancomycin Trough Rheumatoid Factor Complement C4 Miscellaneous Test Crossmatch 09/25/16 09/25/16 09/25/16 04:57 08:02 10:30 WBC RBC Hgb Hct MCV MCH MCHC RDW Plt Count Lymph % (Auto) Stone % (Auto) Lymph # Stone # Baso # Seg Neutrophils % Seg Neuts % (Manual) Lymphocytes % (Manual) Monocytes % (Manual) Eosinophils % (Manual) Basophils % (Manual) Nucleated RBC % Seg Neutrophils # Seg Neutrophils # Man Lymphocytes # (Manual) Monocytes # (Manual) Eosinophils # (Manual) PT INR Fibrinogen dRVVT Confirm Interp Factor V Activity POC ABG pH POC ABG pCO2 24.7 L POC ABG pO2 152 H ABG pO2 ABG HCO3 ABG Hemoglobin Oxyhemoglobin Sodium Potassium Chloride Carbon Dioxide BUN Creatinine Glucose POC Glucose 113 H Lactic Acid Calcium Phosphorus Magnesium Direct Bilirubin AST ALT Alkaline Phosphatase Lactate Dehydrogenase Troponin T C-Reactive Protein Total Protein Albumin Prealbumin Triglycerides Cholesterol LDL Cholesterol Direct HDL Cholesterol Urine pH Urine WBC (Auto) Urine Creatinine Urine Total Protein Fluid Total Protein Vancomycin Trough Rheumatoid Factor Complement C4 Miscellaneous Test Crossmatch See Detail 09/25/16 09/25/16 09/25/16 12:05 17:44 23:47 WBC RBC Hgb Hct MCV MCH MCHC RDW Plt Count Lymph % (Auto) Stone % (Auto) Lymph # Stone # Baso # Seg Neutrophils % Seg Neuts % (Manual) Lymphocytes % (Manual) Monocytes % (Manual) Eosinophils % (Manual) Basophils % (Manual) Nucleated RBC % Seg Neutrophils # Seg Neutrophils # Man Lymphocytes # (Manual) Monocytes # (Manual) Eosinophils # (Manual) PT INR Fibrinogen dRVVT Confirm Interp Factor V Activity POC ABG pH POC ABG pCO2 POC ABG pO2 ABG pO2 ABG HCO3 ABG Hemoglobin Oxyhemoglobin Sodium Potassium Chloride Carbon Dioxide BUN Creatinine Glucose POC Glucose 117 H 119 H 150 H Lactic Acid Calcium Phosphorus Magnesium Direct Bilirubin AST ALT Alkaline Phosphatase Lactate Dehydrogenase Troponin T C-Reactive Protein Total Protein Albumin Prealbumin Triglycerides Cholesterol LDL Cholesterol Direct HDL Cholesterol Urine pH Urine WBC (Auto) Urine Creatinine Urine Total Protein Fluid Total Protein Vancomycin Trough Rheumatoid Factor Complement C4 Miscellaneous Test Crossmatch 09/26/16 09/26/16 09/26/16 04:25 04:25 04:25 WBC RBC 2.65 L Hgb 7.4 L Hct 21.6 L MCV MCH MCHC RDW 22.5 H Plt Count Lymph % (Auto) Stone % (Auto) Lymph # Stone # Baso # Seg Neutrophils % Seg Neuts % (Manual) Lymphocytes % (Manual) 6.0 L Monocytes % (Manual) Eosinophils % (Manual) 11.0 H Basophils % (Manual) Nucleated RBC % Seg Neutrophils # Seg Neutrophils # Man Lymphocytes # (Manual) 0.4 L Monocytes # (Manual) Eosinophils # (Manual) 0.6 H PT INR Fibrinogen dRVVT Confirm Interp Factor V Activity POC ABG pH POC ABG pCO2 POC ABG pO2 ABG pO2 ABG HCO3 ABG Hemoglobin Oxyhemoglobin Sodium Potassium Chloride 97.0 L Carbon Dioxide 19 L BUN 43 H Creatinine 2.6 H Glucose 130 H POC Glucose Lactic Acid 4.40 H* Calcium 6.7 L Phosphorus Magnesium Direct Bilirubin AST ALT Alkaline Phosphatase Lactate Dehydrogenase Troponin T C-Reactive Protein Total Protein Albumin Prealbumin Triglycerides Cholesterol LDL Cholesterol Direct HDL Cholesterol Urine pH Urine WBC (Auto) Urine Creatinine Urine Total Protein Fluid Total Protein Vancomycin Trough Rheumatoid Factor Complement C4 Miscellaneous Test Crossmatch 09/26/16 09/26/16 09/26/16 05:20 11:44 12:12 WBC RBC Hgb Hct MCV MCH MCHC RDW Plt Count Lymph % (Auto) Stone % (Auto) Lymph # Stone # Baso # Seg Neutrophils % Seg Neuts % (Manual) Lymphocytes % (Manual) Monocytes % (Manual) Eosinophils % (Manual) Basophils % (Manual) Nucleated RBC % Seg Neutrophils # Seg Neutrophils # Man Lymphocytes # (Manual) Monocytes # (Manual) Eosinophils # (Manual) PT INR Fibrinogen dRVVT Confirm Interp Factor V Activity POC ABG pH POC ABG pCO2 27.0 L POC ABG pO2 69 L ABG pO2 ABG HCO3 ABG Hemoglobin Oxyhemoglobin Sodium Potassium Chloride Carbon Dioxide BUN Creatinine Glucose POC Glucose 121 H 128 H Lactic Acid Calcium Phosphorus Magnesium Direct Bilirubin AST ALT Alkaline Phosphatase Lactate Dehydrogenase Troponin T C-Reactive Protein Total Protein Albumin Prealbumin Triglycerides Cholesterol LDL Cholesterol Direct HDL Cholesterol Urine pH Urine WBC (Auto) Urine Creatinine Urine Total Protein Fluid Total Protein Vancomycin Trough Rheumatoid Factor Complement C4 Miscellaneous Test Crossmatch 09/26/16 09/26/16 09/27/16 18:31 23:40 08:20 WBC RBC Hgb Hct MCV MCH MCHC RDW Plt Count Lymph % (Auto) Stone % (Auto) Lymph # Stone # Baso # Seg Neutrophils % Seg Neuts % (Manual) Lymphocytes % (Manual) Monocytes % (Manual) Eosinophils % (Manual) Basophils % (Manual) Nucleated RBC % Seg Neutrophils # Seg Neutrophils # Man Lymphocytes # (Manual) Monocytes # (Manual) Eosinophils # (Manual) PT INR Fibrinogen dRVVT Confirm Interp Factor V Activity POC ABG pH POC ABG pCO2 POC ABG pO2 ABG pO2 ABG HCO3 ABG Hemoglobin Oxyhemoglobin Sodium Potassium Chloride Carbon Dioxide BUN Creatinine Glucose POC Glucose 120 H 133 H Lactic Acid 4.10 H* Calcium Phosphorus Magnesium Direct Bilirubin AST ALT Alkaline Phosphatase Lactate Dehydrogenase Troponin T C-Reactive Protein Total Protein Albumin Prealbumin Triglycerides Cholesterol LDL Cholesterol Direct HDL Cholesterol Urine pH Urine WBC (Auto) Urine Creatinine Urine Total Protein Fluid Total Protein Vancomycin Trough Rheumatoid Factor Complement C4 Miscellaneous Test Crossmatch 09/27/16 09/27/16 09/27/16 11:23 15:00 18:15 WBC RBC Hgb Hct MCV MCH MCHC RDW Plt Count Lymph % (Auto) Stone % (Auto) Lymph # Stone # Baso # Seg Neutrophils % Seg Neuts % (Manual) Lymphocytes % (Manual) Monocytes % (Manual) Eosinophils % (Manual) Basophils % (Manual) Nucleated RBC % Seg Neutrophils # Seg Neutrophils # Man Lymphocytes # (Manual) Monocytes # (Manual) Eosinophils # (Manual) PT INR Fibrinogen dRVVT Confirm Interp Factor V Activity POC ABG pH 7.459 H POC ABG pCO2 27.1 L POC ABG pO2 140 H ABG pO2 ABG HCO3 ABG Hemoglobin Oxyhemoglobin Sodium Potassium Chloride Carbon Dioxide BUN Creatinine Glucose POC Glucose 114 H 127 H Lactic Acid Calcium Phosphorus Magnesium Direct Bilirubin AST ALT Alkaline Phosphatase Lactate Dehydrogenase Troponin T C-Reactive Protein Total Protein Albumin Prealbumin Triglycerides Cholesterol LDL Cholesterol Direct HDL Cholesterol Urine pH Urine WBC (Auto) Urine Creatinine Urine Total Protein Fluid Total Protein Vancomycin Trough Rheumatoid Factor Complement C4 Miscellaneous Test Crossmatch 09/27/16 09/27/16 09/28/16 Unknown Unknown 03:45 WBC RBC 2.49 L Hgb 6.8 L Hct 20.7 L MCV MCH 27 L MCHC RDW 22.1 H Plt Count Lymph % (Auto) Stone % (Auto) Lymph # Stone # Baso # Seg Neutrophils % Seg Neuts % (Manual) 32.0 L Lymphocytes % (Manual) 12.0 L Monocytes % (Manual) 11.0 H Eosinophils % (Manual) 10.0 H Basophils % (Manual) Nucleated RBC % Seg Neutrophils # Seg Neutrophils # Man Lymphocytes # (Manual) 1.0 L Monocytes # (Manual) 0.9 H Eosinophils # (Manual) 0.8 H PT INR Fibrinogen dRVVT Confirm Interp Factor V Activity POC ABG pH POC ABG pCO2 POC ABG pO2 ABG pO2 ABG HCO3 ABG Hemoglobin Oxyhemoglobin Sodium 135 L 135 L Potassium 3.5 L Chloride 93.6 L 94.4 L Carbon Dioxide 17 L 21 L BUN 45 H 28 H Creatinine 3.3 H 2.5 H Glucose 106 H POC Glucose Lactic Acid Calcium 7.3 L 7.1 L Phosphorus Magnesium Direct Bilirubin AST ALT Alkaline Phosphatase Lactate Dehydrogenase Troponin T C-Reactive Protein Total Protein Albumin Prealbumin Triglycerides Cholesterol LDL Cholesterol Direct HDL Cholesterol Urine pH Urine WBC (Auto) Urine Creatinine Urine Total Protein Fluid Total Protein Vancomycin Trough Rheumatoid Factor Complement C4 Miscellaneous Test Crossmatch 09/28/16 09/28/16 09/28/16 03:45 07:25 11:58 WBC 13.3 H RBC 3.01 L Hgb 8.4 L Hct 25.0 L MCV MCH MCHC RDW 20.5 H Plt Count 128 L Lymph % (Auto) Stone % (Auto) Lymph # Stone # Baso # Seg Neutrophils % Seg Neuts % (Manual) Lymphocytes % (Manual) 7.0 L Monocytes % (Manual) Eosinophils % (Manual) 6.0 H Basophils % (Manual) Nucleated RBC % Seg Neutrophils # Seg Neutrophils # Man Lymphocytes # (Manual) 0.9 L Monocytes # (Manual) Eosinophils # (Manual) 0.8 H PT INR Fibrinogen dRVVT Confirm Interp Factor V Activity POC ABG pH POC ABG pCO2 POC ABG pO2 ABG pO2 ABG HCO3 ABG Hemoglobin Oxyhemoglobin Sodium Potassium Chloride Carbon Dioxide BUN Creatinine Glucose POC Glucose 121 H Lactic Acid 4.50 H* Calcium Phosphorus Magnesium Direct Bilirubin AST ALT Alkaline Phosphatase Lactate Dehydrogenase Troponin T C-Reactive Protein Total Protein Albumin Prealbumin Triglycerides Cholesterol LDL Cholesterol Direct HDL Cholesterol Urine pH Urine WBC (Auto) Urine Creatinine Urine Total Protein Fluid Total Protein Vancomycin Trough Rheumatoid Factor Complement C4 Miscellaneous Test Crossmatch 09/29/16 09/29/16 09/29/16 06:45 06:45 06:45 WBC 14.9 H RBC 2.74 L Hgb 7.6 L Hct 23.2 L MCV MCH MCHC RDW 20.5 H Plt Count 81 L Lymph % (Auto) Stone % (Auto) Lymph # Stone # Baso # Seg Neutrophils % Seg Neuts % (Manual) 81.0 H Lymphocytes % (Manual) 4.0 L Monocytes % (Manual) Eosinophils % (Manual) Basophils % (Manual) Nucleated RBC % Seg Neutrophils # Seg Neutrophils # Man 12.1 H Lymphocytes # (Manual) 0.6 L Monocytes # (Manual) Eosinophils # (Manual) PT INR Fibrinogen dRVVT Confirm Interp Factor V Activity POC ABG pH POC ABG pCO2 POC ABG pO2 ABG pO2 ABG HCO3 ABG Hemoglobin Oxyhemoglobin Sodium 133 L Potassium 3.4 L Chloride 92.5 L Carbon Dioxide 21 L BUN 33 H Creatinine 3.0 H Glucose POC Glucose Lactic Acid Calcium 6.6 L Phosphorus Magnesium 1.40 L Direct Bilirubin 0.9 H AST ALT Alkaline Phosphatase Lactate Dehydrogenase Troponin T C-Reactive Protein Total Protein 4.3 L Albumin 1.3 L Prealbumin Triglycerides Cholesterol LDL Cholesterol Direct HDL Cholesterol Urine pH Urine WBC (Auto) Urine Creatinine Urine Total Protein Fluid Total Protein Vancomycin Trough Rheumatoid Factor Complement C4 Miscellaneous Test Crossmatch 09/29/16 09/29/16 09/30/16 17:52 20:12 00:07 WBC RBC Hgb Hct MCV MCH MCHC RDW Plt Count Lymph % (Auto) Stone % (Auto) Lymph # Stone # Baso # Seg Neutrophils % Seg Neuts % (Manual) Lymphocytes % (Manual) Monocytes % (Manual) Eosinophils % (Manual) Basophils % (Manual) Nucleated RBC % Seg Neutrophils # Seg Neutrophils # Man Lymphocytes # (Manual) Monocytes # (Manual) Eosinophils # (Manual) PT INR Fibrinogen dRVVT Confirm Interp Factor V Activity POC ABG pH POC ABG pCO2 POC ABG pO2 ABG pO2 ABG HCO3 ABG Hemoglobin Oxyhemoglobin Sodium Potassium Chloride Carbon Dioxide BUN Creatinine Glucose POC Glucose 50 L 51 L Lactic Acid Calcium Phosphorus Magnesium Direct Bilirubin AST ALT Alkaline Phosphatase Lactate Dehydrogenase Troponin T 0.204 H* C-Reactive Protein Total Protein Albumin Prealbumin Triglycerides Cholesterol 31 L LDL Cholesterol Direct 4 L HDL Cholesterol 3 L Urine pH Urine WBC (Auto) Urine Creatinine Urine Total Protein Fluid Total Protein Vancomycin Trough Rheumatoid Factor Complement C4 Miscellaneous Test Crossmatch 09/30/16 09/30/16 09/30/16 01:30 05:15 06:10 WBC RBC Hgb Hct MCV MCH MCHC RDW Plt Count Lymph % (Auto) Stone % (Auto) Lymph # Stone # Baso # Seg Neutrophils % Seg Neuts % (Manual) Lymphocytes % (Manual) Monocytes % (Manual) Eosinophils % (Manual) Basophils % (Manual) Nucleated RBC % Seg Neutrophils # Seg Neutrophils # Man Lymphocytes # (Manual) Monocytes # (Manual) Eosinophils # (Manual) PT INR Fibrinogen dRVVT Confirm Interp Factor V Activity POC ABG pH POC ABG pCO2 POC ABG pO2 ABG pO2 ABG HCO3 ABG Hemoglobin Oxyhemoglobin Sodium 133 L Potassium 3.2 L Chloride 93.2 L Carbon Dioxide 19 L BUN 36 H Creatinine 3.2 H Glucose 104 H POC Glucose 167 H 146 H Lactic Acid Calcium 6.4 L Phosphorus Magnesium 1.60 L Direct Bilirubin AST ALT Alkaline Phosphatase Lactate Dehydrogenase Troponin T C-Reactive Protein Total Protein Albumin Prealbumin Triglycerides Cholesterol LDL Cholesterol Direct HDL Cholesterol Urine pH Urine WBC (Auto) Urine Creatinine Urine Total Protein Fluid Total Protein Vancomycin Trough Rheumatoid Factor Complement C4 Miscellaneous Test Crossmatch 09/30/16 09/30/16 09/30/16 11:26 13:39 18:38 WBC RBC Hgb Hct MCV MCH MCHC RDW Plt Count Lymph % (Auto) Stone % (Auto) Lymph # Stone # Baso # Seg Neutrophils % Seg Neuts % (Manual) Lymphocytes % (Manual) Monocytes % (Manual) Eosinophils % (Manual) Basophils % (Manual) Nucleated RBC % Seg Neutrophils # Seg Neutrophils # Man Lymphocytes # (Manual) Monocytes # (Manual) Eosinophils # (Manual) PT INR Fibrinogen dRVVT Confirm Interp Factor V Activity POC ABG pH 7.479 H POC ABG pCO2 29.8 L POC ABG pO2 117 H ABG pO2 ABG HCO3 ABG Hemoglobin Oxyhemoglobin Sodium Potassium Chloride Carbon Dioxide BUN Creatinine Glucose POC Glucose 140 H 122 H Lactic Acid Calcium Phosphorus Magnesium Direct Bilirubin AST ALT Alkaline Phosphatase Lactate Dehydrogenase Troponin T C-Reactive Protein Total Protein Albumin Prealbumin Triglycerides Cholesterol LDL Cholesterol Direct HDL Cholesterol Urine pH Urine WBC (Auto) Urine Creatinine Urine Total Protein Fluid Total Protein Vancomycin Trough Rheumatoid Factor Complement C4 Miscellaneous Test Crossmatch 10/01/16 10/01/16 10/01/16 06:00 06:00 12:37 WBC 12.6 H RBC 2.75 L Hgb 7.3 L Hct 23.3 L MCV MCH 27 L MCHC RDW 20.6 H Plt Count 72 L Lymph % (Auto) Stone % (Auto) Lymph # Stone # Baso # Seg Neutrophils % Seg Neuts % (Manual) 31.0 L Lymphocytes % (Manual) 8.0 L Monocytes % (Manual) Eosinophils % (Manual) Basophils % (Manual) Nucleated RBC % 3.0 H Seg Neutrophils # Seg Neutrophils # Man Lymphocytes # (Manual) 1.0 L Monocytes # (Manual) Eosinophils # (Manual) PT INR Fibrinogen dRVVT Confirm Interp Factor V Activity POC ABG pH POC ABG pCO2 POC ABG pO2 ABG pO2 ABG HCO3 ABG Hemoglobin Oxyhemoglobin Sodium 127 L Potassium Chloride 86.8 L Carbon Dioxide 20 L BUN 42 H Creatinine 3.5 H Glucose POC Glucose 65 L Lactic Acid Calcium 7.0 L Phosphorus Magnesium Direct Bilirubin AST ALT Alkaline Phosphatase Lactate Dehydrogenase Troponin T C-Reactive Protein Total Protein Albumin Prealbumin Triglycerides Cholesterol LDL Cholesterol Direct HDL Cholesterol Urine pH Urine WBC (Auto) Urine Creatinine Urine Total Protein Fluid Total Protein Vancomycin Trough Rheumatoid Factor Complement C4 Miscellaneous Test Crossmatch 10/01/16 10/01/16 10/02/16 17:39 23:32 00:59 WBC RBC Hgb Hct MCV MCH MCHC RDW Plt Count Lymph % (Auto) Stone % (Auto) Lymph # Stone # Baso # Seg Neutrophils % Seg Neuts % (Manual) Lymphocytes % (Manual) Monocytes % (Manual) Eosinophils % (Manual) Basophils % (Manual) Nucleated RBC % Seg Neutrophils # Seg Neutrophils # Man Lymphocytes # (Manual) Monocytes # (Manual) Eosinophils # (Manual) PT INR Fibrinogen dRVVT Confirm Interp Factor V Activity POC ABG pH POC ABG pCO2 POC ABG pO2 ABG pO2 ABG HCO3 ABG Hemoglobin Oxyhemoglobin Sodium Potassium Chloride Carbon Dioxide BUN Creatinine Glucose POC Glucose 107 H 52 L 145 H Lactic Acid Calcium Phosphorus Magnesium Direct Bilirubin AST ALT Alkaline Phosphatase Lactate Dehydrogenase Troponin T C-Reactive Protein Total Protein Albumin Prealbumin Triglycerides Cholesterol LDL Cholesterol Direct HDL Cholesterol Urine pH Urine WBC (Auto) Urine Creatinine Urine Total Protein Fluid Total Protein Vancomycin Trough Rheumatoid Factor Complement C4 Miscellaneous Test Crossmatch 10/02/16 10/02/16 10/02/16 10:30 10:50 10:50 WBC 14.7 H RBC 2.76 L Hgb 7.4 L Hct 23.6 L MCV MCH 27 L MCHC RDW 20.2 H Plt Count 79 L Lymph % (Auto) Stone % (Auto) Lymph # Stone # Baso # Seg Neutrophils % Seg Neuts % (Manual) 86.0 H Lymphocytes % (Manual) 6.0 L Monocytes % (Manual) Eosinophils % (Manual) Basophils % (Manual) Nucleated RBC % Seg Neutrophils # Seg Neutrophils # Man 12.6 H Lymphocytes # (Manual) 0.9 L Monocytes # (Manual) Eosinophils # (Manual) PT INR Fibrinogen dRVVT Confirm Interp Factor V Activity POC ABG pH 7.486 H POC ABG pCO2 30.1 L POC ABG pO2 108 H ABG pO2 ABG HCO3 ABG Hemoglobin Oxyhemoglobin Sodium 131 L Potassium 3.4 L Chloride 89.9 L Carbon Dioxide BUN 26 H Creatinine 2.6 H Glucose POC Glucose Lactic Acid Calcium 7.0 L Phosphorus Magnesium Direct Bilirubin AST ALT Alkaline Phosphatase Lactate Dehydrogenase Troponin T C-Reactive Protein Total Protein Albumin Prealbumin Triglycerides Cholesterol LDL Cholesterol Direct HDL Cholesterol Urine pH Urine WBC (Auto) Urine Creatinine Urine Total Protein Fluid Total Protein Vancomycin Trough Rheumatoid Factor Complement C4 Miscellaneous Test Crossmatch 10/02/16 10/03/16 10/03/16 23:45 00:45 05:10 WBC 12.9 H RBC 2.77 L Hgb 7.6 L Hct 23.7 L MCV MCH 27 L MCHC RDW 19.7 H Plt Count 89 L Lymph % (Auto) Stone % (Auto) Lymph # Stone # Baso # Seg Neutrophils % Seg Neuts % (Manual) Lymphocytes % (Manual) 8.0 L Monocytes % (Manual) Eosinophils % (Manual) Basophils % (Manual) Nucleated RBC % Seg Neutrophils # 11.9 H Seg Neutrophils # Man Lymphocytes # (Manual) 1.0 L Monocytes # (Manual) Eosinophils # (Manual) PT INR Fibrinogen dRVVT Confirm Interp Factor V Activity POC ABG pH POC ABG pCO2 POC ABG pO2 ABG pO2 ABG HCO3 ABG Hemoglobin Oxyhemoglobin Sodium Potassium Chloride Carbon Dioxide BUN Creatinine Glucose POC Glucose 55 L 199 H Lactic Acid Calcium Phosphorus Magnesium Direct Bilirubin AST ALT Alkaline Phosphatase Lactate Dehydrogenase Troponin T C-Reactive Protein Total Protein Albumin Prealbumin Triglycerides Cholesterol LDL Cholesterol Direct HDL Cholesterol Urine pH Urine WBC (Auto) Urine Creatinine Urine Total Protein Fluid Total Protein Vancomycin Trough Rheumatoid Factor Complement C4 Miscellaneous Test Crossmatch 10/03/16 10/03/16 10/03/16 05:10 12:14 13:18 WBC RBC Hgb Hct MCV MCH MCHC RDW Plt Count Lymph % (Auto) Stone % (Auto) Lymph # Stone # Baso # Seg Neutrophils % Seg Neuts % (Manual) Lymphocytes % (Manual) Monocytes % (Manual) Eosinophils % (Manual) Basophils % (Manual) Nucleated RBC % Seg Neutrophils # Seg Neutrophils # Man Lymphocytes # (Manual) Monocytes # (Manual) Eosinophils # (Manual) PT INR Fibrinogen dRVVT Confirm Interp Factor V Activity POC ABG pH POC ABG pCO2 POC ABG pO2 ABG pO2 ABG HCO3 ABG Hemoglobin Oxyhemoglobin Sodium 129 L Potassium 3.3 L Chloride 88.8 L Carbon Dioxide 20 L BUN 29 H Creatinine 2.8 H Glucose POC Glucose 68 L 127 H Lactic Acid Calcium 7.2 L Phosphorus Magnesium Direct Bilirubin AST ALT Alkaline Phosphatase Lactate Dehydrogenase Troponin T C-Reactive Protein Total Protein Albumin Prealbumin Triglycerides Cholesterol LDL Cholesterol Direct HDL Cholesterol Urine pH Urine WBC (Auto) Urine Creatinine Urine Total Protein Fluid Total Protein Vancomycin Trough Rheumatoid Factor Complement C4 Miscellaneous Test Crossmatch 10/03/16 10/03/16 10/03/16 14:42 18:21 19:09 WBC RBC Hgb Hct MCV MCH MCHC RDW Plt Count Lymph % (Auto) Stone % (Auto) Lymph # Stone # Baso # Seg Neutrophils % Seg Neuts % (Manual) Lymphocytes % (Manual) Monocytes % (Manual) Eosinophils % (Manual) Basophils % (Manual) Nucleated RBC % Seg Neutrophils # Seg Neutrophils # Man Lymphocytes # (Manual) Monocytes # (Manual) Eosinophils # (Manual) PT INR Fibrinogen dRVVT Confirm Interp Factor V Activity POC ABG pH 7.499 H POC ABG pCO2 28.4 L POC ABG pO2 44 L ABG pO2 ABG HCO3 ABG Hemoglobin Oxyhemoglobin Sodium Potassium Chloride Carbon Dioxide BUN Creatinine Glucose POC Glucose 64 L 205 H Lactic Acid Calcium Phosphorus Magnesium Direct Bilirubin AST ALT Alkaline Phosphatase Lactate Dehydrogenase Troponin T C-Reactive Protein Total Protein Albumin Prealbumin Triglycerides Cholesterol LDL Cholesterol Direct HDL Cholesterol Urine pH Urine WBC (Auto) Urine Creatinine Urine Total Protein Fluid Total Protein Vancomycin Trough Rheumatoid Factor Complement C4 Miscellaneous Test Crossmatch 10/03/16 10/04/16 10/04/16 23:33 04:18 06:30 WBC RBC 2.54 L Hgb 7.1 L Hct 21.7 L MCV MCH MCHC RDW 19.5 H Plt Count 76 L Lymph % (Auto) Stone % (Auto) Lymph # Stone # Baso # Seg Neutrophils % Seg Neuts % (Manual) 88.0 H Lymphocytes % (Manual) 6.0 L Monocytes % (Manual) Eosinophils % (Manual) Basophils % (Manual) Nucleated RBC % Seg Neutrophils # Seg Neutrophils # Man 8.8 H Lymphocytes # (Manual) 0.6 L Monocytes # (Manual) Eosinophils # (Manual) PT INR Fibrinogen dRVVT Confirm Interp Factor V Activity POC ABG pH 7.461 H POC ABG pCO2 33.6 L POC ABG pO2 211 H ABG pO2 ABG HCO3 ABG Hemoglobin Oxyhemoglobin Sodium Potassium Chloride Carbon Dioxide BUN Creatinine Glucose POC Glucose 136 H Lactic Acid Calcium Phosphorus Magnesium Direct Bilirubin AST ALT Alkaline Phosphatase Lactate Dehydrogenase Troponin T C-Reactive Protein Total Protein Albumin Prealbumin Triglycerides Cholesterol LDL Cholesterol Direct HDL Cholesterol Urine pH Urine WBC (Auto) Urine Creatinine Urine Total Protein Fluid Total Protein Vancomycin Trough Rheumatoid Factor Complement C4 Miscellaneous Test Crossmatch 10/04/16 10/04/16 10/04/16 06:30 11:45 17:54 WBC RBC Hgb Hct MCV MCH MCHC RDW Plt Count Lymph % (Auto) Stone % (Auto) Lymph # Stone # Baso # Seg Neutrophils % Seg Neuts % (Manual) Lymphocytes % (Manual) Monocytes % (Manual) Eosinophils % (Manual) Basophils % (Manual) Nucleated RBC % Seg Neutrophils # Seg Neutrophils # Man Lymphocytes # (Manual) Monocytes # (Manual) Eosinophils # (Manual) PT INR Fibrinogen dRVVT Confirm Interp Factor V Activity POC ABG pH POC ABG pCO2 POC ABG pO2 ABG pO2 ABG HCO3 ABG Hemoglobin Oxyhemoglobin Sodium 128 L Potassium Chloride 87.4 L Carbon Dioxide 20 L BUN 34 H Creatinine 2.9 H Glucose 127 H POC Glucose 158 H 160 H Lactic Acid Calcium 7.4 L Phosphorus Magnesium Direct Bilirubin AST ALT Alkaline Phosphatase Lactate Dehydrogenase Troponin T C-Reactive Protein Total Protein Albumin Prealbumin Triglycerides Cholesterol LDL Cholesterol Direct HDL Cholesterol Urine pH Urine WBC (Auto) Urine Creatinine Urine Total Protein Fluid Total Protein Vancomycin Trough Rheumatoid Factor Complement C4 Miscellaneous Test Crossmatch 10/04/16 10/05/16 10/05/16 23:25 04:30 05:00 WBC RBC 2.64 L Hgb 7.5 L Hct 22.6 L MCV MCH MCHC RDW 19.3 H Plt Count 80 L Lymph % (Auto) Stone % (Auto) Lymph # Stone # Baso # Seg Neutrophils % Seg Neuts % (Manual) Lymphocytes % (Manual) 12.0 L Monocytes % (Manual) Eosinophils % (Manual) Basophils % (Manual) Nucleated RBC % Seg Neutrophils # Seg Neutrophils # Man Lymphocytes # (Manual) Monocytes # (Manual) Eosinophils # (Manual) PT INR Fibrinogen dRVVT Confirm Interp Factor V Activity POC ABG pH 7.475 H POC ABG pCO2 33.3 L POC ABG pO2 140 H ABG pO2 ABG HCO3 ABG Hemoglobin Oxyhemoglobin Sodium Potassium Chloride Carbon Dioxide BUN Creatinine Glucose POC Glucose 141 H Lactic Acid Calcium Phosphorus Magnesium Direct Bilirubin AST ALT Alkaline Phosphatase Lactate Dehydrogenase Troponin T C-Reactive Protein Total Protein Albumin Prealbumin Triglycerides Cholesterol LDL Cholesterol Direct HDL Cholesterol Urine pH Urine WBC (Auto) Urine Creatinine Urine Total Protein Fluid Total Protein Vancomycin Trough Rheumatoid Factor Complement C4 Miscellaneous Test Crossmatch 10/05/16 10/05/16 10/05/16 05:00 05:09 12:58 WBC RBC Hgb Hct MCV MCH MCHC RDW Plt Count Lymph % (Auto) Stone % (Auto) Lymph # Stone # Baso # Seg Neutrophils % Seg Neuts % (Manual) Lymphocytes % (Manual) Monocytes % (Manual) Eosinophils % (Manual) Basophils % (Manual) Nucleated RBC % Seg Neutrophils # Seg Neutrophils # Man Lymphocytes # (Manual) Monocytes # (Manual) Eosinophils # (Manual) PT INR Fibrinogen dRVVT Confirm Interp Factor V Activity POC ABG pH POC ABG pCO2 POC ABG pO2 ABG pO2 ABG HCO3 ABG Hemoglobin Oxyhemoglobin Sodium 131 L Potassium Chloride 94.0 L Carbon Dioxide 20 L BUN 22 H Creatinine 2.0 H Glucose 123 H POC Glucose 166 H 179 H Lactic Acid Calcium 7.7 L Phosphorus 2.20 L D Magnesium Direct Bilirubin AST ALT Alkaline Phosphatase Lactate Dehydrogenase Troponin T C-Reactive Protein Total Protein Albumin Prealbumin Triglycerides Cholesterol LDL Cholesterol Direct HDL Cholesterol Urine pH Urine WBC (Auto) Urine Creatinine Urine Total Protein Fluid Total Protein Vancomycin Trough Rheumatoid Factor Complement C4 Miscellaneous Test Crossmatch 10/05/16 10/05/16 10/05/16 15:50 18:53 23:12 WBC RBC Hgb Hct MCV MCH MCHC RDW Plt Count Lymph % (Auto) Stone % (Auto) Lymph # Stone # Baso # Seg Neutrophils % Seg Neuts % (Manual) Lymphocytes % (Manual) Monocytes % (Manual) Eosinophils % (Manual) Basophils % (Manual) Nucleated RBC % Seg Neutrophils # Seg Neutrophils # Man Lymphocytes # (Manual) Monocytes # (Manual) Eosinophils # (Manual) PT INR Fibrinogen dRVVT Confirm Interp Factor V Activity POC ABG pH POC ABG pCO2 POC ABG pO2 ABG pO2 ABG HCO3 ABG Hemoglobin Oxyhemoglobin Sodium Potassium Chloride Carbon Dioxide BUN Creatinine Glucose POC Glucose 150 H 164 H Lactic Acid Calcium Phosphorus Magnesium Direct Bilirubin AST ALT Alkaline Phosphatase Lactate Dehydrogenase Troponin T C-Reactive Protein Total Protein Albumin Prealbumin Triglycerides Cholesterol LDL Cholesterol Direct HDL Cholesterol Urine pH Urine WBC (Auto) Urine Creatinine Urine Total Protein Fluid Total Protein Vancomycin Trough Rheumatoid Factor Complement C4 Miscellaneous Test Crossmatch See Detail 10/06/16 10/06/16 10/06/16 03:50 03:50 04:53 WBC RBC 3.00 L Hgb 8.6 L Hct 25.8 L MCV MCH MCHC RDW 17.9 H Plt Count 65 L Lymph % (Auto) Stone % (Auto) Lymph # Stone # Baso # Seg Neutrophils % Seg Neuts % (Manual) 30.0 L Lymphocytes % (Manual) 5.0 L Monocytes % (Manual) Eosinophils % (Manual) Basophils % (Manual) Nucleated RBC % Seg Neutrophils # Seg Neutrophils # Man Lymphocytes # (Manual) 0.4 L Monocytes # (Manual) Eosinophils # (Manual) PT INR Fibrinogen dRVVT Confirm Interp Factor V Activity POC ABG pH 7.310 L POC ABG pCO2 49.0 H POC ABG pO2 ABG pO2 ABG HCO3 ABG Hemoglobin Oxyhemoglobin Sodium 133 L Potassium Chloride 95.9 L Carbon Dioxide BUN 26 H Creatinine 2.0 H Glucose 116 H POC Glucose Lactic Acid Calcium 7.8 L Phosphorus Magnesium Direct Bilirubin AST ALT Alkaline Phosphatase Lactate Dehydrogenase Troponin T C-Reactive Protein Total Protein Albumin Prealbumin Triglycerides Cholesterol LDL Cholesterol Direct HDL Cholesterol Urine pH Urine WBC (Auto) Urine Creatinine Urine Total Protein Fluid Total Protein Vancomycin Trough Rheumatoid Factor Complement C4 Miscellaneous Test Crossmatch 10/06/16 10/06/16 10/06/16 05:23 11:52 18:34 WBC RBC Hgb Hct MCV MCH MCHC RDW Plt Count Lymph % (Auto) Stone % (Auto) Lymph # Stone # Baso # Seg Neutrophils % Seg Neuts % (Manual) Lymphocytes % (Manual) Monocytes % (Manual) Eosinophils % (Manual) Basophils % (Manual) Nucleated RBC % Seg Neutrophils # Seg Neutrophils # Man Lymphocytes # (Manual) Monocytes # (Manual) Eosinophils # (Manual) PT INR Fibrinogen dRVVT Confirm Interp Factor V Activity POC ABG pH POC ABG pCO2 POC ABG pO2 ABG pO2 ABG HCO3 ABG Hemoglobin Oxyhemoglobin Sodium Potassium Chloride Carbon Dioxide BUN Creatinine Glucose POC Glucose 126 H 116 H 129 H Lactic Acid Calcium Phosphorus Magnesium Direct Bilirubin AST ALT Alkaline Phosphatase Lactate Dehydrogenase Troponin T C-Reactive Protein Total Protein Albumin Prealbumin Triglycerides Cholesterol LDL Cholesterol Direct HDL Cholesterol Urine pH Urine WBC (Auto) Urine Creatinine Urine Total Protein Fluid Total Protein Vancomycin Trough Rheumatoid Factor Complement C4 Miscellaneous Test Crossmatch 10/07/16 10/07/16 10/07/16 03:45 05:00 10:00 WBC 17.0 H RBC 2.68 L Hgb 7.3 L Hct 25.3 L MCV MCH 27 L MCHC 29 L RDW 19.6 H Plt Count 74 L Lymph % (Auto) Stone % (Auto) Lymph # Stone # Baso # Seg Neutrophils % Seg Neuts % (Manual) Lymphocytes % (Manual) 12.0 L Monocytes % (Manual) Eosinophils % (Manual) Basophils % (Manual) Nucleated RBC % 4.0 H Seg Neutrophils # Seg Neutrophils # Man 10.7 H Lymphocytes # (Manual) Monocytes # (Manual) Eosinophils # (Manual) PT INR Fibrinogen dRVVT Confirm Interp Factor V Activity POC ABG pH POC ABG pCO2 POC ABG pO2 ABG pO2 ABG HCO3 ABG Hemoglobin Oxyhemoglobin Sodium 130 L Potassium 3.2 L Chloride 93.9 L Carbon Dioxide 20 L BUN 44 H Creatinine 2.7 H Glucose 129 H POC Glucose Lactic Acid Calcium 7.4 L Phosphorus Magnesium Direct Bilirubin AST ALT 6 L Alkaline Phosphatase 195 H Lactate Dehydrogenase Troponin T C-Reactive Protein Total Protein 4.9 L Albumin 1.0 L Prealbumin Triglycerides Cholesterol LDL Cholesterol Direct HDL Cholesterol Urine pH Urine WBC (Auto) Urine Creatinine Urine Total Protein Fluid Total Protein Vancomycin Trough Rheumatoid Factor Complement C4 Miscellaneous Test Flexitest 1 H Crossmatch 10/07/16 10/07/16 10/07/16 10:00 11:24 18:10 WBC RBC Hgb Hct MCV MCH MCHC RDW Plt Count Lymph % (Auto) Stone % (Auto) Lymph # Stone # Baso # Seg Neutrophils % Seg Neuts % (Manual) Lymphocytes % (Manual) Monocytes % (Manual) Eosinophils % (Manual) Basophils % (Manual) Nucleated RBC % Seg Neutrophils # Seg Neutrophils # Man Lymphocytes # (Manual) Monocytes # (Manual) Eosinophils # (Manual) PT INR Fibrinogen dRVVT Confirm Interp Factor V Activity POC ABG pH POC ABG pCO2 POC ABG pO2 ABG pO2 ABG HCO3 ABG Hemoglobin Oxyhemoglobin Sodium Potassium Chloride Carbon Dioxide BUN Creatinine Glucose POC Glucose 116 H 130 H Lactic Acid Calcium Phosphorus Magnesium Direct Bilirubin AST ALT Alkaline Phosphatase Lactate Dehydrogenase Troponin T C-Reactive Protein 19.40 H Total Protein Albumin Prealbumin Triglycerides Cholesterol LDL Cholesterol Direct HDL Cholesterol Urine pH Urine WBC (Auto) Urine Creatinine Urine Total Protein Fluid Total Protein Vancomycin Trough Rheumatoid Factor Complement C4 Miscellaneous Test Crossmatch 10/07/16 10/08/16 10/08/16 18:30 00:00 04:00 WBC RBC Hgb Hct MCV MCH MCHC RDW Plt Count Lymph % (Auto) Stone % (Auto) Lymph # Stone # Baso # Seg Neutrophils % Seg Neuts % (Manual) Lymphocytes % (Manual) Monocytes % (Manual) Eosinophils % (Manual) Basophils % (Manual) Nucleated RBC % Seg Neutrophils # Seg Neutrophils # Man Lymphocytes # (Manual) Monocytes # (Manual) Eosinophils # (Manual) PT INR Fibrinogen dRVVT Confirm Interp Factor V Activity POC ABG pH POC ABG pCO2 POC ABG pO2 ABG pO2 ABG HCO3 ABG Hemoglobin Oxyhemoglobin Sodium 132 L Potassium 3.3 L Chloride 93.6 L Carbon Dioxide 17 L BUN 59 H Creatinine 2.7 H Glucose 121 H POC Glucose 122 H Lactic Acid Calcium 7.6 L Phosphorus Magnesium Direct Bilirubin AST ALT Alkaline Phosphatase Lactate Dehydrogenase Troponin T C-Reactive Protein Total Protein Albumin Prealbumin Triglycerides Cholesterol LDL Cholesterol Direct HDL Cholesterol Urine pH Urine WBC (Auto) > 182.0 H Urine Creatinine Urine Total Protein Fluid Total Protein Vancomycin Trough Rheumatoid Factor Complement C4 Miscellaneous Test Crossmatch 10/08/16 10/08/16 10/08/16 04:30 05:30 11:51 WBC RBC 5.15 H Hgb 14.4 H D Hct 44.5 H D MCV MCH MCHC RDW 19.5 H Plt Count 56 L Lymph % (Auto) Stone % (Auto) Lymph # Stone # Baso # Seg Neutrophils % Seg Neuts % (Manual) 24.0 L Lymphocytes % (Manual) 8.0 L Monocytes % (Manual) Eosinophils % (Manual) Basophils % (Manual) Nucleated RBC % 9.0 H Seg Neutrophils # Seg Neutrophils # Man Lymphocytes # (Manual) 0.7 L Monocytes # (Manual) Eosinophils # (Manual) PT INR Fibrinogen dRVVT Confirm Interp Factor V Activity POC ABG pH POC ABG pCO2 POC ABG pO2 ABG pO2 ABG HCO3 ABG Hemoglobin Oxyhemoglobin Sodium Potassium Chloride Carbon Dioxide BUN Creatinine Glucose POC Glucose 125 H 150 H Lactic Acid Calcium Phosphorus Magnesium Direct Bilirubin AST ALT Alkaline Phosphatase Lactate Dehydrogenase Troponin T C-Reactive Protein Total Protein Albumin Prealbumin Triglycerides Cholesterol LDL Cholesterol Direct HDL Cholesterol Urine pH Urine WBC (Auto) Urine Creatinine Urine Total Protein Fluid Total Protein Vancomycin Trough Rheumatoid Factor Complement C4 Miscellaneous Test Crossmatch 10/08/16 10/08/16 10/08/16 12:49 17:07 19:30 WBC RBC Hgb 7.1 L D Hct 22.4 L D MCV MCH MCHC RDW Plt Count Lymph % (Auto) Stone % (Auto) Lymph # Stone # Baso # Seg Neutrophils % Seg Neuts % (Manual) Lymphocytes % (Manual) Monocytes % (Manual) Eosinophils % (Manual) Basophils % (Manual) Nucleated RBC % Seg Neutrophils # Seg Neutrophils # Man Lymphocytes # (Manual) Monocytes # (Manual) Eosinophils # (Manual) PT INR Fibrinogen dRVVT Confirm Interp Factor V Activity POC ABG pH POC ABG pCO2 28.2 L POC ABG pO2 111 H ABG pO2 ABG HCO3 ABG Hemoglobin Oxyhemoglobin Sodium Potassium Chloride Carbon Dioxide BUN Creatinine Glucose POC Glucose 145 H Lactic Acid Calcium Phosphorus Magnesium Direct Bilirubin AST ALT Alkaline Phosphatase Lactate Dehydrogenase Troponin T C-Reactive Protein Total Protein Albumin Prealbumin Triglycerides Cholesterol LDL Cholesterol Direct HDL Cholesterol Urine pH Urine WBC (Auto) Urine Creatinine Urine Total Protein Fluid Total Protein Vancomycin Trough Rheumatoid Factor Complement C4 Miscellaneous Test Crossmatch 10/08/16 10/09/16 10/09/16 19:30 03:45 03:45 WBC 12.6 H RBC 2.36 L Hgb 6.7 L Hct 21.1 L MCV MCH MCHC RDW 19.5 H Plt Count 75 L Lymph % (Auto) Stone % (Auto) Lymph # Stone # Baso # Seg Neutrophils % Seg Neuts % (Manual) Lymphocytes % (Manual) Monocytes % (Manual) 10.0 H Eosinophils % (Manual) Basophils % (Manual) Nucleated RBC % 3.0 H Seg Neutrophils # Seg Neutrophils # Man Lymphocytes # (Manual) Monocytes # (Manual) 1.3 H Eosinophils # (Manual) PT 18.0 H INR 1.41 H Fibrinogen dRVVT Confirm Interp Factor V Activity POC ABG pH POC ABG pCO2 POC ABG pO2 ABG pO2 ABG HCO3 ABG Hemoglobin Oxyhemoglobin Sodium 135 L Potassium Chloride Carbon Dioxide 17 L BUN 81 H Creatinine 3.2 H Glucose 109 H POC Glucose Lactic Acid Calcium 7.4 L Phosphorus 4.60 H D Magnesium Direct Bilirubin AST ALT Alkaline Phosphatase Lactate Dehydrogenase Troponin T C-Reactive Protein Total Protein Albumin Prealbumin Triglycerides Cholesterol LDL Cholesterol Direct HDL Cholesterol Urine pH Urine WBC (Auto) Urine Creatinine Urine Total Protein Fluid Total Protein Vancomycin Trough Rheumatoid Factor Complement C4 Miscellaneous Test Crossmatch 10/09/16 10/09/16 10/09/16 03:45 05:14 07:20 WBC RBC Hgb Hct MCV MCH MCHC RDW Plt Count Lymph % (Auto) Stone % (Auto) Lymph # Stone # Baso # Seg Neutrophils % Seg Neuts % (Manual) Lymphocytes % (Manual) Monocytes % (Manual) Eosinophils % (Manual) Basophils % (Manual) Nucleated RBC % Seg Neutrophils # Seg Neutrophils # Man Lymphocytes # (Manual) Monocytes # (Manual) Eosinophils # (Manual) PT 19.0 H INR 1.51 H Fibrinogen dRVVT Confirm Interp Factor V Activity POC ABG pH POC ABG pCO2 POC ABG pO2 ABG pO2 ABG HCO3 ABG Hemoglobin Oxyhemoglobin Sodium Potassium Chloride Carbon Dioxide BUN Creatinine Glucose POC Glucose 151 H Lactic Acid Calcium Phosphorus Magnesium Direct Bilirubin AST ALT Alkaline Phosphatase Lactate Dehydrogenase Troponin T C-Reactive Protein Total Protein Albumin Prealbumin Triglycerides Cholesterol LDL Cholesterol Direct HDL Cholesterol Urine pH Urine WBC (Auto) Urine Creatinine Urine Total Protein Fluid Total Protein Vancomycin Trough Rheumatoid Factor Complement C4 Miscellaneous Test Crossmatch See Detail 10/09/16 10/09/16 10/09/16 11:46 16:20 16:43 WBC RBC Hgb 7.2 L Hct 22.2 L MCV MCH MCHC RDW Plt Count Lymph % (Auto) Stone % (Auto) Lymph # Stone # Baso # Seg Neutrophils % Seg Neuts % (Manual) Lymphocytes % (Manual) Monocytes % (Manual) Eosinophils % (Manual) Basophils % (Manual) Nucleated RBC % Seg Neutrophils # Seg Neutrophils # Man Lymphocytes # (Manual) Monocytes # (Manual) Eosinophils # (Manual) PT INR Fibrinogen dRVVT Confirm Interp Factor V Activity POC ABG pH POC ABG pCO2 POC ABG pO2 ABG pO2 ABG HCO3 ABG Hemoglobin Oxyhemoglobin Sodium Potassium Chloride Carbon Dioxide BUN Creatinine Glucose POC Glucose 133 H 141 H Lactic Acid Calcium Phosphorus Magnesium Direct Bilirubin AST ALT Alkaline Phosphatase Lactate Dehydrogenase Troponin T C-Reactive Protein Total Protein Albumin Prealbumin Triglycerides Cholesterol LDL Cholesterol Direct HDL Cholesterol Urine pH Urine WBC (Auto) Urine Creatinine Urine Total Protein Fluid Total Protein Vancomycin Trough Rheumatoid Factor Complement C4 Miscellaneous Test Crossmatch 10/10/16 10/10/16 10/10/16 05:00 05:00 11:19 WBC 18.5 H RBC 2.19 L Hgb 6.4 L Hct 19.6 L* MCV MCH MCHC RDW 19.3 H Plt Count 93 L Lymph % (Auto) Stone % (Auto) Lymph # Stone # Baso # Seg Neutrophils % Seg Neuts % (Manual) Lymphocytes % (Manual) 10.0 L Monocytes % (Manual) Eosinophils % (Manual) Basophils % (Manual) Nucleated RBC % 4.0 H Seg Neutrophils # Seg Neutrophils # Man 11.3 H Lymphocytes # (Manual) Monocytes # (Manual) Eosinophils # (Manual) PT INR Fibrinogen dRVVT Confirm Interp Factor V Activity POC ABG pH POC ABG pCO2 POC ABG pO2 ABG pO2 ABG HCO3 ABG Hemoglobin Oxyhemoglobin Sodium Potassium 5.7 H D Chloride Carbon Dioxide 16 L BUN 94 H Creatinine 3.1 H Glucose 131 H POC Glucose 153 H Lactic Acid Calcium 8.2 L Phosphorus 5.10 H Magnesium 2.40 H Direct Bilirubin 0.3 H AST ALT < 5 L Alkaline Phosphatase 319 H Lactate Dehydrogenase Troponin T C-Reactive Protein Total Protein 5.1 L Albumin 1.0 L Prealbumin Triglycerides Cholesterol LDL Cholesterol Direct HDL Cholesterol Urine pH Urine WBC (Auto) Urine Creatinine Urine Total Protein Fluid Total Protein Vancomycin Trough Rheumatoid Factor Complement C4 Miscellaneous Test Crossmatch 10/10/16 10/10/16 10/11/16 17:50 23:30 04:15 WBC RBC Hgb Hct MCV MCH MCHC RDW Plt Count Lymph % (Auto) Stone % (Auto) Lymph # Stone # Baso # Seg Neutrophils % Seg Neuts % (Manual) Lymphocytes % (Manual) Monocytes % (Manual) Eosinophils % (Manual) Basophils % (Manual) Nucleated RBC % Seg Neutrophils # Seg Neutrophils # Man Lymphocytes # (Manual) Monocytes # (Manual) Eosinophils # (Manual) PT INR Fibrinogen dRVVT Confirm Interp Factor V Activity POC ABG pH POC ABG pCO2 POC ABG pO2 ABG pO2 ABG HCO3 ABG Hemoglobin Oxyhemoglobin Sodium Potassium Chloride 96.4 L Carbon Dioxide 21 L BUN 57 H Creatinine 2.1 H Glucose 151 H POC Glucose 146 H 141 H Lactic Acid Calcium 8.3 L Phosphorus Magnesium Direct Bilirubin AST ALT Alkaline Phosphatase Lactate Dehydrogenase Troponin T C-Reactive Protein Total Protein Albumin Prealbumin Triglycerides Cholesterol LDL Cholesterol Direct HDL Cholesterol Urine pH Urine WBC (Auto) Urine Creatinine Urine Total Protein Fluid Total Protein Vancomycin Trough Rheumatoid Factor Complement C4 Miscellaneous Test Crossmatch 10/11/16 10/11/16 10/11/16 04:15 04:15 05:30 WBC 28.3 H RBC 3.12 L Hgb 9.3 L Hct 28.7 L D MCV MCH MCHC RDW 17.7 H Plt Count 128 L Lymph % (Auto) Stone % (Auto) Lymph # Stone # Baso # Seg Neutrophils % Seg Neuts % (Manual) Lymphocytes % (Manual) Monocytes % (Manual) Eosinophils % (Manual) Basophils % (Manual) Nucleated RBC % Seg Neutrophils # Seg Neutrophils # Man Lymphocytes # (Manual) Monocytes # (Manual) Eosinophils # (Manual) PT INR Fibrinogen dRVVT Confirm Interp Factor V Activity POC ABG pH POC ABG pCO2 POC ABG pO2 ABG pO2 ABG HCO3 ABG Hemoglobin Oxyhemoglobin Sodium Potassium Chloride Carbon Dioxide BUN Creatinine Glucose POC Glucose 167 H Lactic Acid Calcium Phosphorus Magnesium Direct Bilirubin AST ALT Alkaline Phosphatase Lactate Dehydrogenase Troponin T C-Reactive Protein 15.80 H Total Protein Albumin Prealbumin Triglycerides Cholesterol LDL Cholesterol Direct HDL Cholesterol Urine pH Urine WBC (Auto) Urine Creatinine Urine Total Protein Fluid Total Protein Vancomycin Trough Rheumatoid Factor Complement C4 Miscellaneous Test Crossmatch 10/11/16 10/11/16 10/11/16 11:40 15:49 23:57 WBC RBC Hgb Hct MCV MCH MCHC RDW Plt Count Lymph % (Auto) Stone % (Auto) Lymph # Stone # Baso # Seg Neutrophils % Seg Neuts % (Manual) Lymphocytes % (Manual) Monocytes % (Manual) Eosinophils % (Manual) Basophils % (Manual) Nucleated RBC % Seg Neutrophils # Seg Neutrophils # Man Lymphocytes # (Manual) Monocytes # (Manual) Eosinophils # (Manual) PT INR Fibrinogen dRVVT Confirm Interp Factor V Activity POC ABG pH POC ABG pCO2 POC ABG pO2 ABG pO2 ABG HCO3 ABG Hemoglobin Oxyhemoglobin Sodium Potassium Chloride Carbon Dioxide BUN Creatinine Glucose POC Glucose 139 H 168 H 161 H Lactic Acid Calcium Phosphorus Magnesium Direct Bilirubin AST ALT Alkaline Phosphatase Lactate Dehydrogenase Troponin T C-Reactive Protein Total Protein Albumin Prealbumin Triglycerides Cholesterol LDL Cholesterol Direct HDL Cholesterol Urine pH Urine WBC (Auto) Urine Creatinine Urine Total Protein Fluid Total Protein Vancomycin Trough Rheumatoid Factor Complement C4 Miscellaneous Test Crossmatch 10/12/16 10/12/16 10/12/16 04:40 04:40 05:44 WBC 22.5 H RBC 2.88 L Hgb 8.8 L Hct 26.8 L MCV MCH MCHC RDW 17.8 H Plt Count Lymph % (Auto) Stone % (Auto) Lymph # Stone # Baso # Seg Neutrophils % Seg Neuts % (Manual) Lymphocytes % (Manual) Monocytes % (Manual) Eosinophils % (Manual) Basophils % (Manual) Nucleated RBC % Seg Neutrophils # Seg Neutrophils # Man Lymphocytes # (Manual) Monocytes # (Manual) Eosinophils # (Manual) PT INR Fibrinogen dRVVT Confirm Interp Factor V Activity POC ABG pH POC ABG pCO2 POC ABG pO2 ABG pO2 ABG HCO3 ABG Hemoglobin Oxyhemoglobin Sodium 134 L Potassium Chloride 93.0 L Carbon Dioxide BUN 74 H Creatinine 2.5 H Glucose 137 H POC Glucose 158 H Lactic Acid Calcium 8.2 L Phosphorus Magnesium Direct Bilirubin AST ALT Alkaline Phosphatase Lactate Dehydrogenase Troponin T C-Reactive Protein Total Protein Albumin Prealbumin Triglycerides Cholesterol LDL Cholesterol Direct HDL Cholesterol Urine pH Urine WBC (Auto) Urine Creatinine Urine Total Protein Fluid Total Protein Vancomycin Trough Rheumatoid Factor Complement C4 Miscellaneous Test Crossmatch 10/12/16 10/12/16 10/12/16 12:27 18:18 23:46 WBC RBC Hgb Hct MCV MCH MCHC RDW Plt Count Lymph % (Auto) Stone % (Auto) Lymph # Stone # Baso # Seg Neutrophils % Seg Neuts % (Manual) Lymphocytes % (Manual) Monocytes % (Manual) Eosinophils % (Manual) Basophils % (Manual) Nucleated RBC % Seg Neutrophils # Seg Neutrophils # Man Lymphocytes # (Manual) Monocytes # (Manual) Eosinophils # (Manual) PT INR Fibrinogen dRVVT Confirm Interp Factor V Activity POC ABG pH POC ABG pCO2 POC ABG pO2 ABG pO2 ABG HCO3 ABG Hemoglobin Oxyhemoglobin Sodium Potassium Chloride Carbon Dioxide BUN Creatinine Glucose POC Glucose 153 H 140 H 150 H Lactic Acid Calcium Phosphorus Magnesium Direct Bilirubin AST ALT Alkaline Phosphatase Lactate Dehydrogenase Troponin T C-Reactive Protein Total Protein Albumin Prealbumin Triglycerides Cholesterol LDL Cholesterol Direct HDL Cholesterol Urine pH Urine WBC (Auto) Urine Creatinine Urine Total Protein Fluid Total Protein Vancomycin Trough Rheumatoid Factor Complement C4 Miscellaneous Test Crossmatch 10/13/16 10/13/16 10/13/16 06:22 09:20 12:29 WBC RBC Hgb Hct MCV MCH MCHC RDW Plt Count Lymph % (Auto) Stone % (Auto) Lymph # Stone # Baso # Seg Neutrophils % Seg Neuts % (Manual) Lymphocytes % (Manual) Monocytes % (Manual) Eosinophils % (Manual) Basophils % (Manual) Nucleated RBC % Seg Neutrophils # Seg Neutrophils # Man Lymphocytes # (Manual) Monocytes # (Manual) Eosinophils # (Manual) PT INR Fibrinogen dRVVT Confirm Interp Factor V Activity POC ABG pH POC ABG pCO2 POC ABG pO2 ABG pO2 ABG HCO3 ABG Hemoglobin Oxyhemoglobin Sodium Potassium Chloride Carbon Dioxide BUN Creatinine Glucose POC Glucose 165 H 193 H Lactic Acid Calcium Phosphorus Magnesium Direct Bilirubin AST ALT Alkaline Phosphatase Lactate Dehydrogenase Troponin T C-Reactive Protein Total Protein Albumin Prealbumin Triglycerides Cholesterol LDL Cholesterol Direct HDL Cholesterol Urine pH Urine WBC (Auto) Urine Creatinine Urine Total Protein Fluid Total Protein Vancomycin Trough Rheumatoid Factor Complement C4 Miscellaneous Test Flexitest 1 H Crossmatch 10/13/16 10/13/16 10/13/16 18:09 Unknown Unknown WBC 23.4 H RBC 2.83 L Hgb 8.7 L Hct 26.1 L MCV MCH MCHC RDW 18.1 H Plt Count Lymph % (Auto) Stone % (Auto) Lymph # Stone # Baso # Seg Neutrophils % Seg Neuts % (Manual) Lymphocytes % (Manual) Monocytes % (Manual) Eosinophils % (Manual) Basophils % (Manual) Nucleated RBC % Seg Neutrophils # Seg Neutrophils # Man Lymphocytes # (Manual) Monocytes # (Manual) Eosinophils # (Manual) PT INR Fibrinogen dRVVT Confirm Interp Factor V Activity POC ABG pH POC ABG pCO2 POC ABG pO2 ABG pO2 ABG HCO3 ABG Hemoglobin Oxyhemoglobin Sodium Potassium Chloride 95.8 L Carbon Dioxide BUN 82 H Creatinine 2.6 H Glucose 152 H POC Glucose 166 H Lactic Acid Calcium Phosphorus Magnesium Direct Bilirubin AST ALT Alkaline Phosphatase Lactate Dehydrogenase Troponin T C-Reactive Protein Total Protein Albumin Prealbumin Triglycerides Cholesterol LDL Cholesterol Direct HDL Cholesterol Urine pH Urine WBC (Auto) Urine Creatinine Urine Total Protein Fluid Total Protein Vancomycin Trough Rheumatoid Factor Complement C4 Miscellaneous Test Crossmatch 10/14/16 10/14/16 10/14/16 05:38 06:35 08:10 WBC 20.7 H RBC 2.81 L Hgb 8.4 L Hct 27.2 L MCV MCH MCHC RDW 19.4 H Plt Count Lymph % (Auto) Stone % (Auto) Lymph # Stone # Baso # Seg Neutrophils % Seg Neuts % (Manual) Lymphocytes % (Manual) Monocytes % (Manual) Eosinophils % (Manual) Basophils % (Manual) Nucleated RBC % Seg Neutrophils # Seg Neutrophils # Man Lymphocytes # (Manual) Monocytes # (Manual) Eosinophils # (Manual) PT INR Fibrinogen dRVVT Confirm Interp Factor V Activity POC ABG pH POC ABG pCO2 POC ABG pO2 ABG pO2 ABG HCO3 ABG Hemoglobin Oxyhemoglobin Sodium Potassium Chloride Carbon Dioxide BUN 58 H Creatinine 1.9 H Glucose 169 H POC Glucose 195 H Lactic Acid Calcium Phosphorus Magnesium Direct Bilirubin AST ALT Alkaline Phosphatase Lactate Dehydrogenase Troponin T C-Reactive Protein Total Protein Albumin Prealbumin Triglycerides Cholesterol LDL Cholesterol Direct HDL Cholesterol Urine pH Urine WBC (Auto) Urine Creatinine Urine Total Protein Fluid Total Protein Vancomycin Trough Rheumatoid Factor Complement C4 Miscellaneous Test Crossmatch 10/14/16 10/14/16 10/14/16 11:44 17:13 23:28 WBC RBC Hgb Hct MCV MCH MCHC RDW Plt Count Lymph % (Auto) Stone % (Auto) Lymph # Stone # Baso # Seg Neutrophils % Seg Neuts % (Manual) Lymphocytes % (Manual) Monocytes % (Manual) Eosinophils % (Manual) Basophils % (Manual) Nucleated RBC % Seg Neutrophils # Seg Neutrophils # Man Lymphocytes # (Manual) Monocytes # (Manual) Eosinophils # (Manual) PT INR Fibrinogen dRVVT Confirm Interp Factor V Activity POC ABG pH POC ABG pCO2 POC ABG pO2 ABG pO2 ABG HCO3 ABG Hemoglobin Oxyhemoglobin Sodium Potassium Chloride Carbon Dioxide BUN Creatinine Glucose POC Glucose 174 H 121 H 151 H Lactic Acid Calcium Phosphorus Magnesium Direct Bilirubin AST ALT Alkaline Phosphatase Lactate Dehydrogenase Troponin T C-Reactive Protein Total Protein Albumin Prealbumin Triglycerides Cholesterol LDL Cholesterol Direct HDL Cholesterol Urine pH Urine WBC (Auto) Urine Creatinine Urine Total Protein Fluid Total Protein Vancomycin Trough Rheumatoid Factor Complement C4 Miscellaneous Test Crossmatch 10/15/16 10/15/16 10/15/16 05:06 12:26 17:48 WBC RBC Hgb Hct MCV MCH MCHC RDW Plt Count Lymph % (Auto) Stone % (Auto) Lymph # Stone # Baso # Seg Neutrophils % Seg Neuts % (Manual) Lymphocytes % (Manual) Monocytes % (Manual) Eosinophils % (Manual) Basophils % (Manual) Nucleated RBC % Seg Neutrophils # Seg Neutrophils # Man Lymphocytes # (Manual) Monocytes # (Manual) Eosinophils # (Manual) PT INR Fibrinogen dRVVT Confirm Interp Factor V Activity POC ABG pH POC ABG pCO2 POC ABG pO2 ABG pO2 ABG HCO3 ABG Hemoglobin Oxyhemoglobin Sodium Potassium Chloride Carbon Dioxide BUN Creatinine Glucose POC Glucose 151 H 149 H 153 H Lactic Acid Calcium Phosphorus Magnesium Direct Bilirubin AST ALT Alkaline Phosphatase Lactate Dehydrogenase Troponin T C-Reactive Protein Total Protein Albumin Prealbumin Triglycerides Cholesterol LDL Cholesterol Direct HDL Cholesterol Urine pH Urine WBC (Auto) Urine Creatinine Urine Total Protein Fluid Total Protein Vancomycin Trough Rheumatoid Factor Complement C4 Miscellaneous Test Crossmatch 10/15/16 10/15/16 10/16/16 Unknown Unknown 00:02 WBC 23.4 H RBC 2.78 L Hgb 8.5 L Hct 25.7 L MCV MCH MCHC RDW 18.7 H Plt Count Lymph % (Auto) Stone % (Auto) Lymph # Stone # Baso # Seg Neutrophils % Seg Neuts % (Manual) Lymphocytes % (Manual) Monocytes % (Manual) Eosinophils % (Manual) Basophils % (Manual) Nucleated RBC % Seg Neutrophils # Seg Neutrophils # Man Lymphocytes # (Manual) Monocytes # (Manual) Eosinophils # (Manual) PT INR Fibrinogen dRVVT Confirm Interp Factor V Activity POC ABG pH POC ABG pCO2 POC ABG pO2 ABG pO2 ABG HCO3 ABG Hemoglobin Oxyhemoglobin Sodium Potassium Chloride Carbon Dioxide BUN 73 H Creatinine 2.3 H Glucose 120 H POC Glucose 137 H Lactic Acid Calcium Phosphorus Magnesium Direct Bilirubin AST ALT Alkaline Phosphatase Lactate Dehydrogenase Troponin T C-Reactive Protein Total Protein Albumin Prealbumin Triglycerides Cholesterol LDL Cholesterol Direct HDL Cholesterol Urine pH Urine WBC (Auto) Urine Creatinine Urine Total Protein Fluid Total Protein Vancomycin Trough Rheumatoid Factor Complement C4 Miscellaneous Test Crossmatch 10/16/16 10/16/16 10/16/16 05:44 06:25 06:25 WBC 22.5 H RBC 2.76 L Hgb 8.3 L Hct 25.2 L MCV MCH MCHC RDW 18.3 H Plt Count Lymph % (Auto) Stone % (Auto) Lymph # Stone # Baso # Seg Neutrophils % Seg Neuts % (Manual) Lymphocytes % (Manual) Monocytes % (Manual) Eosinophils % (Manual) Basophils % (Manual) Nucleated RBC % Seg Neutrophils # Seg Neutrophils # Man Lymphocytes # (Manual) Monocytes # (Manual) Eosinophils # (Manual) PT INR Fibrinogen dRVVT Confirm Interp Factor V Activity POC ABG pH POC ABG pCO2 POC ABG pO2 ABG pO2 ABG HCO3 ABG Hemoglobin Oxyhemoglobin Sodium Potassium Chloride Carbon Dioxide BUN 92 H Creatinine 3.0 H Glucose 138 H POC Glucose 110 H Lactic Acid Calcium Phosphorus Magnesium Direct Bilirubin AST ALT Alkaline Phosphatase Lactate Dehydrogenase Troponin T C-Reactive Protein Total Protein Albumin Prealbumin Triglycerides Cholesterol LDL Cholesterol Direct HDL Cholesterol Urine pH Urine WBC (Auto) Urine Creatinine Urine Total Protein Fluid Total Protein Vancomycin Trough Rheumatoid Factor Complement C4 Miscellaneous Test Crossmatch 10/16/16 10/16/16 10/16/16 11:27 11:48 17:36 WBC RBC Hgb Hct MCV MCH MCHC RDW Plt Count Lymph % (Auto) Stone % (Auto) Lymph # Stone # Baso # Seg Neutrophils % Seg Neuts % (Manual) Lymphocytes % (Manual) Monocytes % (Manual) Eosinophils % (Manual) Basophils % (Manual) Nucleated RBC % Seg Neutrophils # Seg Neutrophils # Man Lymphocytes # (Manual) Monocytes # (Manual) Eosinophils # (Manual) PT INR Fibrinogen dRVVT Confirm Interp Factor V Activity POC ABG pH 7.582 H POC ABG pCO2 27.4 L POC ABG pO2 110 H ABG pO2 ABG HCO3 ABG Hemoglobin Oxyhemoglobin Sodium Potassium Chloride Carbon Dioxide BUN Creatinine Glucose POC Glucose 121 H 133 H Lactic Acid Calcium Phosphorus Magnesium Direct Bilirubin AST ALT Alkaline Phosphatase Lactate Dehydrogenase Troponin T C-Reactive Protein Total Protein Albumin Prealbumin Triglycerides Cholesterol LDL Cholesterol Direct HDL Cholesterol Urine pH Urine WBC (Auto) Urine Creatinine Urine Total Protein Fluid Total Protein Vancomycin Trough Rheumatoid Factor Complement C4 Miscellaneous Test Crossmatch 10/16/16 10/17/16 10/17/16 20:48 04:24 04:24 WBC 21.4 H RBC 2.72 L Hgb 8.0 L Hct 25.2 L MCV MCH MCHC RDW 18.0 H Plt Count Lymph % (Auto) Stone % (Auto) Lymph # Stone # Baso # Seg Neutrophils % Seg Neuts % (Manual) Lymphocytes % (Manual) Monocytes % (Manual) Eosinophils % (Manual) Basophils % (Manual) Nucleated RBC % Seg Neutrophils # Seg Neutrophils # Man Lymphocytes # (Manual) Monocytes # (Manual) Eosinophils # (Manual) PT INR Fibrinogen dRVVT Confirm Interp Factor V Activity POC ABG pH 7.561 H POC ABG pCO2 24.4 L POC ABG pO2 77 L ABG pO2 ABG HCO3 ABG Hemoglobin Oxyhemoglobin Sodium 148 H Potassium Chloride Carbon Dioxide BUN 104 H Creatinine 3.0 H Glucose 149 H POC Glucose Lactic Acid Calcium Phosphorus Magnesium Direct Bilirubin AST ALT Alkaline Phosphatase 138 H Lactate Dehydrogenase Troponin T C-Reactive Protein Total Protein 6.2 L Albumin 1.5 L Prealbumin Triglycerides Cholesterol LDL Cholesterol Direct HDL Cholesterol Urine pH Urine WBC (Auto) Urine Creatinine Urine Total Protein Fluid Total Protein Vancomycin Trough Rheumatoid Factor Complement C4 Miscellaneous Test Crossmatch 10/17/16 10/17/16 10/17/16 06:02 12:17 17:14 WBC RBC Hgb Hct MCV MCH MCHC RDW Plt Count Lymph % (Auto) Stone % (Auto) Lymph # Stone # Baso # Seg Neutrophils % Seg Neuts % (Manual) Lymphocytes % (Manual) Monocytes % (Manual) Eosinophils % (Manual) Basophils % (Manual) Nucleated RBC % Seg Neutrophils # Seg Neutrophils # Man Lymphocytes # (Manual) Monocytes # (Manual) Eosinophils # (Manual) PT INR Fibrinogen dRVVT Confirm Interp Factor V Activity POC ABG pH POC ABG pCO2 POC ABG pO2 ABG pO2 ABG HCO3 ABG Hemoglobin Oxyhemoglobin Sodium Potassium Chloride Carbon Dioxide BUN Creatinine Glucose POC Glucose 170 H 167 H 126 H Lactic Acid Calcium Phosphorus Magnesium Direct Bilirubin AST ALT Alkaline Phosphatase Lactate Dehydrogenase Troponin T C-Reactive Protein Total Protein Albumin Prealbumin Triglycerides Cholesterol LDL Cholesterol Direct HDL Cholesterol Urine pH Urine WBC (Auto) Urine Creatinine Urine Total Protein Fluid Total Protein Vancomycin Trough Rheumatoid Factor Complement C4 Miscellaneous Test Crossmatch 10/17/16 10/18/16 10/18/16 23:17 04:00 04:00 WBC 20.7 H RBC 2.47 L Hgb 7.4 L Hct 22.9 L MCV MCH MCHC RDW 17.5 H Plt Count Lymph % (Auto) Stone % (Auto) Lymph # Stone # Baso # Seg Neutrophils % Seg Neuts % (Manual) Lymphocytes % (Manual) Monocytes % (Manual) Eosinophils % (Manual) Basophils % (Manual) Nucleated RBC % Seg Neutrophils # Seg Neutrophils # Man Lymphocytes # (Manual) Monocytes # (Manual) Eosinophils # (Manual) PT INR Fibrinogen dRVVT Confirm Interp Factor V Activity POC ABG pH POC ABG pCO2 POC ABG pO2 ABG pO2 ABG HCO3 ABG Hemoglobin Oxyhemoglobin Sodium 149 H Potassium Chloride 107.9 H Carbon Dioxide 20 L BUN 117 H Creatinine 3.2 H Glucose 119 H POC Glucose 121 H Lactic Acid Calcium Phosphorus Magnesium Direct Bilirubin AST ALT Alkaline Phosphatase Lactate Dehydrogenase Troponin T C-Reactive Protein Total Protein Albumin Prealbumin Triglycerides Cholesterol LDL Cholesterol Direct HDL Cholesterol Urine pH Urine WBC (Auto) Urine Creatinine Urine Total Protein Fluid Total Protein Vancomycin Trough Rheumatoid Factor Complement C4 Miscellaneous Test Crossmatch 10/18/16 10/18/16 10/18/16 05:23 10:46 17:30 WBC RBC Hgb Hct MCV MCH MCHC RDW Plt Count Lymph % (Auto) Stone % (Auto) Lymph # Stone # Baso # Seg Neutrophils % Seg Neuts % (Manual) Lymphocytes % (Manual) Monocytes % (Manual) Eosinophils % (Manual) Basophils % (Manual) Nucleated RBC % Seg Neutrophils # Seg Neutrophils # Man Lymphocytes # (Manual) Monocytes # (Manual) Eosinophils # (Manual) PT INR Fibrinogen dRVVT Confirm Interp Factor V Activity POC ABG pH POC ABG pCO2 POC ABG pO2 ABG pO2 ABG HCO3 ABG Hemoglobin Oxyhemoglobin Sodium Potassium Chloride Carbon Dioxide BUN Creatinine Glucose POC Glucose 119 H 155 H 124 H Lactic Acid Calcium Phosphorus Magnesium Direct Bilirubin AST ALT Alkaline Phosphatase Lactate Dehydrogenase Troponin T C-Reactive Protein Total Protein Albumin Prealbumin Triglycerides Cholesterol LDL Cholesterol Direct HDL Cholesterol Urine pH Urine WBC (Auto) Urine Creatinine Urine Total Protein Fluid Total Protein Vancomycin Trough Rheumatoid Factor Complement C4 Miscellaneous Test Crossmatch 10/19/16 10/19/16 10/19/16 04:00 04:00 05:25 WBC 17.4 H RBC 2.54 L Hgb 7.7 L Hct 23.6 L MCV MCH MCHC RDW 17.3 H Plt Count Lymph % (Auto) Stone % (Auto) Lymph # Stone # Baso # Seg Neutrophils % Seg Neuts % (Manual) Lymphocytes % (Manual) Monocytes % (Manual) Eosinophils % (Manual) Basophils % (Manual) Nucleated RBC % Seg Neutrophils # Seg Neutrophils # Man Lymphocytes # (Manual) Monocytes # (Manual) Eosinophils # (Manual) PT INR Fibrinogen dRVVT Confirm Interp Factor V Activity POC ABG pH POC ABG pCO2 POC ABG pO2 ABG pO2 ABG HCO3 ABG Hemoglobin Oxyhemoglobin Sodium Potassium Chloride Carbon Dioxide BUN 72 H Creatinine 2.1 H Glucose 116 H POC Glucose 119 H Lactic Acid Calcium Phosphorus Magnesium Direct Bilirubin AST ALT Alkaline Phosphatase Lactate Dehydrogenase Troponin T C-Reactive Protein Total Protein Albumin Prealbumin Triglycerides Cholesterol LDL Cholesterol Direct HDL Cholesterol Urine pH Urine WBC (Auto) Urine Creatinine Urine Total Protein Fluid Total Protein Vancomycin Trough Rheumatoid Factor Complement C4 Miscellaneous Test Crossmatch 10/19/16 10/19/16 10/20/16 11:46 23:59 06:00 WBC RBC Hgb Hct MCV MCH MCHC RDW Plt Count Lymph % (Auto) Stone % (Auto) Lymph # Stone # Baso # Seg Neutrophils % Seg Neuts % (Manual) Lymphocytes % (Manual) Monocytes % (Manual) Eosinophils % (Manual) Basophils % (Manual) Nucleated RBC % Seg Neutrophils # Seg Neutrophils # Man Lymphocytes # (Manual) Monocytes # (Manual) Eosinophils # (Manual) PT INR Fibrinogen dRVVT Confirm Interp Factor V Activity POC ABG pH POC ABG pCO2 POC ABG pO2 ABG pO2 ABG HCO3 ABG Hemoglobin Oxyhemoglobin Sodium Potassium Chloride Carbon Dioxide 17 L BUN 94 H Creatinine 2.7 H Glucose POC Glucose 116 H 117 H Lactic Acid Calcium Phosphorus Magnesium Direct Bilirubin AST ALT Alkaline Phosphatase Lactate Dehydrogenase Troponin T C-Reactive Protein Total Protein Albumin Prealbumin Triglycerides Cholesterol LDL Cholesterol Direct HDL Cholesterol Urine pH Urine WBC (Auto) Urine Creatinine Urine Total Protein Fluid Total Protein Vancomycin Trough Rheumatoid Factor Complement C4 Miscellaneous Test Crossmatch 10/20/16 10/20/16 10/20/16 06:00 11:49 16:00 WBC 19.7 H RBC 2.51 L Hgb 7.7 L Hct 23.5 L MCV MCH MCHC RDW 17.5 H Plt Count Lymph % (Auto) Stone % (Auto) Lymph # Stone # Baso # Seg Neutrophils % Seg Neuts % (Manual) Lymphocytes % (Manual) Monocytes % (Manual) Eosinophils % (Manual) Basophils % (Manual) Nucleated RBC % Seg Neutrophils # Seg Neutrophils # Man Lymphocytes # (Manual) Monocytes # (Manual) Eosinophils # (Manual) PT INR Fibrinogen dRVVT Confirm Interp Factor V Activity POC ABG pH POC ABG pCO2 POC ABG pO2 ABG pO2 ABG HCO3 ABG Hemoglobin Oxyhemoglobin Sodium Potassium Chloride Carbon Dioxide BUN Creatinine Glucose POC Glucose 117 H Lactic Acid Calcium Phosphorus Magnesium Direct Bilirubin AST ALT Alkaline Phosphatase Lactate Dehydrogenase Troponin T C-Reactive Protein Total Protein Albumin Prealbumin Triglycerides Cholesterol LDL Cholesterol Direct HDL Cholesterol Urine pH Urine WBC (Auto) Urine Creatinine Urine Total Protein Fluid Total Protein Vancomycin Trough Rheumatoid Factor Complement C4 Miscellaneous Test Flexitest 1 H Crossmatch 10/20/16 10/20/16 10/21/16 18:36 23:39 04:00 WBC RBC Hgb Hct MCV MCH MCHC RDW Plt Count Lymph % (Auto) Stone % (Auto) Lymph # Stone # Baso # Seg Neutrophils % Seg Neuts % (Manual) Lymphocytes % (Manual) Monocytes % (Manual) Eosinophils % (Manual) Basophils % (Manual) Nucleated RBC % Seg Neutrophils # Seg Neutrophils # Man Lymphocytes # (Manual) Monocytes # (Manual) Eosinophils # (Manual) PT INR Fibrinogen dRVVT Confirm Interp Factor V Activity POC ABG pH POC ABG pCO2 POC ABG pO2 ABG pO2 ABG HCO3 ABG Hemoglobin Oxyhemoglobin Sodium Potassium 5.4 H D Chloride Carbon Dioxide 15 L BUN 110 H Creatinine 3.0 H Glucose POC Glucose 127 H 114 H Lactic Acid Calcium Phosphorus Magnesium Direct Bilirubin AST ALT Alkaline Phosphatase Lactate Dehydrogenase Troponin T C-Reactive Protein Total Protein Albumin Prealbumin Triglycerides Cholesterol LDL Cholesterol Direct HDL Cholesterol Urine pH Urine WBC (Auto) Urine Creatinine Urine Total Protein Fluid Total Protein Vancomycin Trough Rheumatoid Factor Complement C4 Miscellaneous Test Crossmatch 10/21/16 10/21/16 10/22/16 05:54 23:46 05:18 WBC RBC Hgb Hct MCV MCH MCHC RDW Plt Count Lymph % (Auto) Stone % (Auto) Lymph # Stone # Baso # Seg Neutrophils % Seg Neuts % (Manual) Lymphocytes % (Manual) Monocytes % (Manual) Eosinophils % (Manual) Basophils % (Manual) Nucleated RBC % Seg Neutrophils # Seg Neutrophils # Man Lymphocytes # (Manual) Monocytes # (Manual) Eosinophils # (Manual) PT INR Fibrinogen dRVVT Confirm Interp Factor V Activity POC ABG pH POC ABG pCO2 POC ABG pO2 ABG pO2 ABG HCO3 ABG Hemoglobin Oxyhemoglobin Sodium Potassium Chloride Carbon Dioxide BUN Creatinine Glucose POC Glucose 119 H 108 H 109 H Lactic Acid Calcium Phosphorus Magnesium Direct Bilirubin AST ALT Alkaline Phosphatase Lactate Dehydrogenase Troponin T C-Reactive Protein Total Protein Albumin Prealbumin Triglycerides Cholesterol LDL Cholesterol Direct HDL Cholesterol Urine pH Urine WBC (Auto) Urine Creatinine Urine Total Protein Fluid Total Protein Vancomycin Trough Rheumatoid Factor Complement C4 Miscellaneous Test Crossmatch 0910/22/16 10/22/16 06:40 06:40 06:40 WBC 14.0 H RBC 2.03 L Hgb 7.0 L Hct 20.5 L MCV 98 H MCH 34 H MCHC 35 H RDW 17.8 H Plt Count Lymph % (Auto) Stone % (Auto) 9.9 H Lymph # Stone # 1.4 H Baso # 0.2 H Seg Neutrophils % 72.0 H Seg Neuts % (Manual) Lymphocytes % (Manual) Monocytes % (Manual) Eosinophils % (Manual) Basophils % (Manual) Nucleated RBC % Seg Neutrophils # 10.0 H Seg Neutrophils # Man Lymphocytes # (Manual) Monocytes # (Manual) Eosinophils # (Manual) PT INR Fibrinogen dRVVT Confirm Interp Factor V Activity POC ABG pH POC ABG pCO2 POC ABG pO2 ABG pO2 ABG HCO3 ABG Hemoglobin Oxyhemoglobin Sodium 130 L D Potassium Chloride 92.4 L Carbon Dioxide 20 L BUN 50 H Creatinine 1.6 H Glucose 589 H* POC Glucose Lactic Acid Calcium 7.8 L D Phosphorus Magnesium 1.60 L Direct Bilirubin AST ALT Alkaline Phosphatase Lactate Dehydrogenase Troponin T C-Reactive Protein Total Protein Albumin Prealbumin Triglycerides Cholesterol LDL Cholesterol Direct HDL Cholesterol Urine pH Urine WBC (Auto) Urine Creatinine Urine Total Protein Fluid Total Protein Vancomycin Trough Rheumatoid Factor Complement C4 Miscellaneous Test Crossmatch 10/22/16 10/22/16 10/22/16 11:39 16:44 23:36 WBC RBC Hgb Hct MCV MCH MCHC RDW Plt Count Lymph % (Auto) Stone % (Auto) Lymph # Stone # Baso # Seg Neutrophils % Seg Neuts % (Manual) Lymphocytes % (Manual) Monocytes % (Manual) Eosinophils % (Manual) Basophils % (Manual) Nucleated RBC % Seg Neutrophils # Seg Neutrophils # Man Lymphocytes # (Manual) Monocytes # (Manual) Eosinophils # (Manual) PT INR Fibrinogen dRVVT Confirm Interp Factor V Activity POC ABG pH POC ABG pCO2 POC ABG pO2 ABG pO2 ABG HCO3 ABG Hemoglobin Oxyhemoglobin Sodium Potassium Chloride Carbon Dioxide BUN Creatinine Glucose POC Glucose 142 H 163 H 123 H Lactic Acid Calcium Phosphorus Magnesium Direct Bilirubin AST ALT Alkaline Phosphatase Lactate Dehydrogenase Troponin T C-Reactive Protein Total Protein Albumin Prealbumin Triglycerides Cholesterol LDL Cholesterol Direct HDL Cholesterol Urine pH Urine WBC (Auto) Urine Creatinine Urine Total Protein Fluid Total Protein Vancomycin Trough Rheumatoid Factor Complement C4 Miscellaneous Test Crossmatch 10/23/16 10/23/16 10/23/16 04:58 06:00 12:12 WBC RBC Hgb Hct MCV MCH MCHC RDW Plt Count Lymph % (Auto) Stone % (Auto) Lymph # Stone # Baso # Seg Neutrophils % Seg Neuts % (Manual) Lymphocytes % (Manual) Monocytes % (Manual) Eosinophils % (Manual) Basophils % (Manual) Nucleated RBC % Seg Neutrophils # Seg Neutrophils # Man Lymphocytes # (Manual) Monocytes # (Manual) Eosinophils # (Manual) PT INR Fibrinogen dRVVT Confirm Interp Factor V Activity POC ABG pH POC ABG pCO2 POC ABG pO2 ABG pO2 ABG HCO3 ABG Hemoglobin Oxyhemoglobin Sodium 133 L Potassium 3.5 L Chloride 96.1 L Carbon Dioxide 18 L BUN 76 H Creatinine 2.1 H Glucose POC Glucose 133 H 138 H Lactic Acid Calcium 8.3 L Phosphorus Magnesium Direct Bilirubin AST ALT Alkaline Phosphatase Lactate Dehydrogenase Troponin T C-Reactive Protein Total Protein Albumin Prealbumin Triglycerides Cholesterol LDL Cholesterol Direct HDL Cholesterol Urine pH Urine WBC (Auto) Urine Creatinine Urine Total Protein Fluid Total Protein Vancomycin Trough Rheumatoid Factor Complement C4 Miscellaneous Test Crossmatch 10/23/16 10/23/16 10/24/16 16:53 23:37 04:00 WBC RBC Hgb Hct MCV MCH MCHC RDW Plt Count Lymph % (Auto) Stone % (Auto) Lymph # Stone # Baso # Seg Neutrophils % Seg Neuts % (Manual) Lymphocytes % (Manual) Monocytes % (Manual) Eosinophils % (Manual) Basophils % (Manual) Nucleated RBC % Seg Neutrophils # Seg Neutrophils # Man Lymphocytes # (Manual) Monocytes # (Manual) Eosinophils # (Manual) PT INR Fibrinogen dRVVT Confirm Interp Factor V Activity POC ABG pH POC ABG pCO2 POC ABG pO2 ABG pO2 ABG HCO3 ABG Hemoglobin Oxyhemoglobin Sodium 131 L Potassium Chloride 94.5 L Carbon Dioxide 19 L BUN 97 H Creatinine 2.6 H Glucose 110 H POC Glucose 125 H 123 H Lactic Acid Calcium 8.3 L Phosphorus Magnesium Direct Bilirubin AST ALT Alkaline Phosphatase Lactate Dehydrogenase Troponin T C-Reactive Protein Total Protein Albumin Prealbumin Triglycerides Cholesterol LDL Cholesterol Direct HDL Cholesterol Urine pH Urine WBC (Auto) Urine Creatinine Urine Total Protein Fluid Total Protein Vancomycin Trough Rheumatoid Factor Complement C4 Miscellaneous Test Crossmatch 10/24/16 10/24/16 10/24/16 07:49 11:39 17:52 WBC RBC Hgb 6.0 L Hct 19.7 L* MCV MCH MCHC RDW Plt Count Lymph % (Auto) Stone % (Auto) Lymph # Stone # Baso # Seg Neutrophils % Seg Neuts % (Manual) Lymphocytes % (Manual) Monocytes % (Manual) Eosinophils % (Manual) Basophils % (Manual) Nucleated RBC % Seg Neutrophils # Seg Neutrophils # Man Lymphocytes # (Manual) Monocytes # (Manual) Eosinophils # (Manual) PT INR Fibrinogen dRVVT Confirm Interp Factor V Activity POC ABG pH POC ABG pCO2 POC ABG pO2 ABG pO2 ABG HCO3 ABG Hemoglobin Oxyhemoglobin Sodium Potassium Chloride Carbon Dioxide BUN Creatinine Glucose POC Glucose 106 H 158 H Lactic Acid Calcium Phosphorus Magnesium Direct Bilirubin AST ALT Alkaline Phosphatase Lactate Dehydrogenase Troponin T C-Reactive Protein Total Protein Albumin Prealbumin Triglycerides Cholesterol LDL Cholesterol Direct HDL Cholesterol Urine pH Urine WBC (Auto) Urine Creatinine Urine Total Protein Fluid Total Protein Vancomycin Trough Rheumatoid Factor Complement C4 Miscellaneous Test Crossmatch 10/24/16 10/24/16 10/24/16 20:00 22:27 Unknown WBC RBC Hgb 9.4 L D Hct 27.5 L D MCV MCH MCHC RDW Plt Count Lymph % (Auto) Stone % (Auto) Lymph # Stone # Baso # Seg Neutrophils % Seg Neuts % (Manual) Lymphocytes % (Manual) Monocytes % (Manual) Eosinophils % (Manual) Basophils % (Manual) Nucleated RBC % Seg Neutrophils # Seg Neutrophils # Man Lymphocytes # (Manual) Monocytes # (Manual) Eosinophils # (Manual) PT INR Fibrinogen dRVVT Confirm Interp Factor V Activity POC ABG pH POC ABG pCO2 POC ABG pO2 ABG pO2 ABG HCO3 ABG Hemoglobin Oxyhemoglobin Sodium Potassium Chloride Carbon Dioxide BUN Creatinine Glucose POC Glucose 125 H Lactic Acid Calcium Phosphorus Magnesium Direct Bilirubin AST ALT Alkaline Phosphatase Lactate Dehydrogenase Troponin T C-Reactive Protein Total Protein Albumin Prealbumin Triglycerides Cholesterol LDL Cholesterol Direct HDL Cholesterol Urine pH Urine WBC (Auto) Urine Creatinine Urine Total Protein Fluid Total Protein Vancomycin Trough Rheumatoid Factor Complement C4 Miscellaneous Test Crossmatch See Detail 10/25/16 10/25/16 10/25/16 04:00 04:00 04:00 WBC 14.2 H RBC 2.98 L Hgb 9.0 L Hct 26.2 L MCV MCH MCHC RDW 16.6 H Plt Count Lymph % (Auto) Stone % (Auto) 10.7 H Lymph # Stone # 1.5 H Baso # Seg Neutrophils % 73.6 H Seg Neuts % (Manual) Lymphocytes % (Manual) Monocytes % (Manual) Eosinophils % (Manual) Basophils % (Manual) Nucleated RBC % Seg Neutrophils # 10.5 H Seg Neutrophils # Man Lymphocytes # (Manual) Monocytes # (Manual) Eosinophils # (Manual) PT INR Fibrinogen dRVVT Confirm Interp Factor V Activity POC ABG pH POC ABG pCO2 POC ABG pO2 ABG pO2 ABG HCO3 ABG Hemoglobin Oxyhemoglobin Sodium 132 L Potassium Chloride 94.7 L Carbon Dioxide BUN 51 H Creatinine 1.6 H Glucose 130 H POC Glucose Lactic Acid Calcium 8.3 L Phosphorus 1.60 L D Magnesium Direct Bilirubin AST ALT Alkaline Phosphatase Lactate Dehydrogenase Troponin T C-Reactive Protein Total Protein Albumin Prealbumin Triglycerides Cholesterol LDL Cholesterol Direct HDL Cholesterol Urine pH Urine WBC (Auto) Urine Creatinine Urine Total Protein Fluid Total Protein Vancomycin Trough Rheumatoid Factor Complement C4 Miscellaneous Test Crossmatch 10/25/16 10/25/16 10/25/16 04:32 11:48 17:22 WBC RBC Hgb Hct MCV MCH MCHC RDW Plt Count Lymph % (Auto) Stone % (Auto) Lymph # Stone # Baso # Seg Neutrophils % Seg Neuts % (Manual) Lymphocytes % (Manual) Monocytes % (Manual) Eosinophils % (Manual) Basophils % (Manual) Nucleated RBC % Seg Neutrophils # Seg Neutrophils # Man Lymphocytes # (Manual) Monocytes # (Manual) Eosinophils # (Manual) PT INR Fibrinogen dRVVT Confirm Interp Factor V Activity POC ABG pH POC ABG pCO2 POC ABG pO2 ABG pO2 ABG HCO3 ABG Hemoglobin Oxyhemoglobin Sodium Potassium Chloride Carbon Dioxide BUN Creatinine Glucose POC Glucose 124 H 171 H 120 H Lactic Acid Calcium Phosphorus Magnesium Direct Bilirubin AST ALT Alkaline Phosphatase Lactate Dehydrogenase Troponin T C-Reactive Protein Total Protein Albumin Prealbumin Triglycerides Cholesterol LDL Cholesterol Direct HDL Cholesterol Urine pH Urine WBC (Auto) Urine Creatinine Urine Total Protein Fluid Total Protein Vancomycin Trough Rheumatoid Factor Complement C4 Miscellaneous Test Crossmatch 10/26/16 10/26/16 10/26/16 04:54 07:06 07:06 WBC 16.9 H RBC 3.06 L Hgb 9.1 L Hct 26.9 L MCV MCH MCHC RDW 16.9 H Plt Count Lymph % (Auto) Stone % (Auto) Lymph # Stone # Baso # Seg Neutrophils % Seg Neuts % (Manual) 71.0 H Lymphocytes % (Manual) 5.0 L Monocytes % (Manual) 12.0 H Eosinophils % (Manual) Basophils % (Manual) Nucleated RBC % Seg Neutrophils # Seg Neutrophils # Man 12.0 H Lymphocytes # (Manual) 0.8 L Monocytes # (Manual) 2.0 H Eosinophils # (Manual) PT INR Fibrinogen dRVVT Confirm Interp Factor V Activity POC ABG pH POC ABG pCO2 POC ABG pO2 ABG pO2 ABG HCO3 ABG Hemoglobin Oxyhemoglobin Sodium 135 L Potassium Chloride 97.1 L Carbon Dioxide BUN 73 H Creatinine 2.2 H Glucose 117 H POC Glucose 123 H Lactic Acid Calcium Phosphorus 1.70 L Magnesium Direct Bilirubin AST ALT Alkaline Phosphatase Lactate Dehydrogenase Troponin T C-Reactive Protein Total Protein Albumin Prealbumin Triglycerides Cholesterol LDL Cholesterol Direct HDL Cholesterol Urine pH Urine WBC (Auto) Urine Creatinine Urine Total Protein Fluid Total Protein Vancomycin Trough Rheumatoid Factor Complement C4 Miscellaneous Test Crossmatch 10/26/16 10/26/16 10/26/16 12:12 17:29 23:42 WBC RBC Hgb Hct MCV MCH MCHC RDW Plt Count Lymph % (Auto) Stone % (Auto) Lymph # Stone # Baso # Seg Neutrophils % Seg Neuts % (Manual) Lymphocytes % (Manual) Monocytes % (Manual) Eosinophils % (Manual) Basophils % (Manual) Nucleated RBC % Seg Neutrophils # Seg Neutrophils # Man Lymphocytes # (Manual) Monocytes # (Manual) Eosinophils # (Manual) PT INR Fibrinogen dRVVT Confirm Interp Factor V Activity POC ABG pH POC ABG pCO2 POC ABG pO2 ABG pO2 ABG HCO3 ABG Hemoglobin Oxyhemoglobin Sodium Potassium Chloride Carbon Dioxide BUN Creatinine Glucose POC Glucose 126 H 161 H 118 H Lactic Acid Calcium Phosphorus Magnesium Direct Bilirubin AST ALT Alkaline Phosphatase Lactate Dehydrogenase Troponin T C-Reactive Protein Total Protein Albumin Prealbumin Triglycerides Cholesterol LDL Cholesterol Direct HDL Cholesterol Urine pH Urine WBC (Auto) Urine Creatinine Urine Total Protein Fluid Total Protein Vancomycin Trough Rheumatoid Factor Complement C4 Miscellaneous Test Crossmatch 10/27/16 10/27/16 10/27/16 05:03 06:30 06:30 WBC 13.9 H RBC 3.09 L Hgb 9.2 L Hct 27.5 L MCV MCH MCHC RDW 17.0 H Plt Count Lymph % (Auto) Stone % (Auto) Lymph # Stone # Baso # Seg Neutrophils % Seg Neuts % (Manual) 78.0 H Lymphocytes % (Manual) Monocytes % (Manual) Eosinophils % (Manual) Basophils % (Manual) Nucleated RBC % 2.0 H Seg Neutrophils # Seg Neutrophils # Man 10.8 H Lymphocytes # (Manual) Monocytes # (Manual) 1.0 H Eosinophils # (Manual) PT INR Fibrinogen dRVVT Confirm Interp Factor V Activity POC ABG pH POC ABG pCO2 POC ABG pO2 ABG pO2 ABG HCO3 ABG Hemoglobin Oxyhemoglobin Sodium Potassium Chloride Carbon Dioxide BUN 40 H Creatinine 1.5 H Glucose 135 H POC Glucose 107 H Lactic Acid Calcium 8.3 L Phosphorus 1.30 L D Magnesium Direct Bilirubin AST ALT Alkaline Phosphatase Lactate Dehydrogenase Troponin T C-Reactive Protein Total Protein Albumin Prealbumin Triglycerides Cholesterol LDL Cholesterol Direct HDL Cholesterol Urine pH Urine WBC (Auto) Urine Creatinine Urine Total Protein Fluid Total Protein Vancomycin Trough Rheumatoid Factor Complement C4 Miscellaneous Test Crossmatch 10/27/16 10/27/16 10/27/16 13:27 18:07 23:40 WBC RBC Hgb Hct MCV MCH MCHC RDW Plt Count Lymph % (Auto) Stone % (Auto) Lymph # Stone # Baso # Seg Neutrophils % Seg Neuts % (Manual) Lymphocytes % (Manual) Monocytes % (Manual) Eosinophils % (Manual) Basophils % (Manual) Nucleated RBC % Seg Neutrophils # Seg Neutrophils # Man Lymphocytes # (Manual) Monocytes # (Manual) Eosinophils # (Manual) PT INR Fibrinogen dRVVT Confirm Interp Factor V Activity POC ABG pH POC ABG pCO2 POC ABG pO2 ABG pO2 ABG HCO3 ABG Hemoglobin Oxyhemoglobin Sodium Potassium Chloride Carbon Dioxide BUN Creatinine Glucose POC Glucose 117 H 121 H 118 H Lactic Acid Calcium Phosphorus Magnesium Direct Bilirubin AST ALT Alkaline Phosphatase Lactate Dehydrogenase Troponin T C-Reactive Protein Total Protein Albumin Prealbumin Triglycerides Cholesterol LDL Cholesterol Direct HDL Cholesterol Urine pH Urine WBC (Auto) Urine Creatinine Urine Total Protein Fluid Total Protein Vancomycin Trough Rheumatoid Factor Complement C4 Miscellaneous Test Crossmatch 10/28/16 10/28/16 10/28/16 05:48 06:45 06:45 WBC 14.7 H RBC 3.05 L Hgb 9.0 L Hct 26.9 L MCV MCH MCHC RDW 16.8 H Plt Count Lymph % (Auto) 8.2 L Stone % (Auto) 8.4 H Lymph # Stone # 1.2 H Baso # Seg Neutrophils % 81.9 H Seg Neuts % (Manual) Lymphocytes % (Manual) Monocytes % (Manual) Eosinophils % (Manual) Basophils % (Manual) Nucleated RBC % Seg Neutrophils # 12.1 H Seg Neutrophils # Man Lymphocytes # (Manual) Monocytes # (Manual) Eosinophils # (Manual) PT INR Fibrinogen dRVVT Confirm Interp Factor V Activity POC ABG pH POC ABG pCO2 POC ABG pO2 ABG pO2 ABG HCO3 ABG Hemoglobin Oxyhemoglobin Sodium Potassium Chloride Carbon Dioxide BUN 60 H Creatinine 1.9 H Glucose 120 H POC Glucose 114 H Lactic Acid Calcium Phosphorus Magnesium Direct Bilirubin AST ALT Alkaline Phosphatase Lactate Dehydrogenase Troponin T C-Reactive Protein Total Protein Albumin Prealbumin Triglycerides Cholesterol LDL Cholesterol Direct HDL Cholesterol Urine pH Urine WBC (Auto) Urine Creatinine Urine Total Protein Fluid Total Protein Vancomycin Trough Rheumatoid Factor Complement C4 Miscellaneous Test Crossmatch 10/28/16 10/28/16 10/29/16 17:08 23:50 05:10 WBC RBC Hgb Hct MCV MCH MCHC RDW Plt Count Lymph % (Auto) Stone % (Auto) Lymph # Stone # Baso # Seg Neutrophils % Seg Neuts % (Manual) Lymphocytes % (Manual) Monocytes % (Manual) Eosinophils % (Manual) Basophils % (Manual) Nucleated RBC % Seg Neutrophils # Seg Neutrophils # Man Lymphocytes # (Manual) Monocytes # (Manual) Eosinophils # (Manual) PT INR Fibrinogen dRVVT Confirm Interp Factor V Activity POC ABG pH POC ABG pCO2 POC ABG pO2 ABG pO2 ABG HCO3 ABG Hemoglobin Oxyhemoglobin Sodium Potassium Chloride Carbon Dioxide BUN Creatinine Glucose POC Glucose 109 H 110 H 124 H Lactic Acid Calcium Phosphorus Magnesium Direct Bilirubin AST ALT Alkaline Phosphatase Lactate Dehydrogenase Troponin T C-Reactive Protein Total Protein Albumin Prealbumin Triglycerides Cholesterol LDL Cholesterol Direct HDL Cholesterol Urine pH Urine WBC (Auto) Urine Creatinine Urine Total Protein Fluid Total Protein Vancomycin Trough Rheumatoid Factor Complement C4 Miscellaneous Test Crossmatch 10/29/16 10/29/16 10/29/16 07:45 07:45 12:19 WBC 14.7 H RBC 3.15 L Hgb 9.3 L Hct 28.9 L MCV MCH MCHC RDW 17.0 H Plt Count Lymph % (Auto) 11.9 L Stone % (Auto) 8.6 H Lymph # Stone # 1.3 H Baso # Seg Neutrophils % 78.1 H Seg Neuts % (Manual) Lymphocytes % (Manual) Monocytes % (Manual) Eosinophils % (Manual) Basophils % (Manual) Nucleated RBC % Seg Neutrophils # 11.4 H Seg Neutrophils # Man Lymphocytes # (Manual) Monocytes # (Manual) Eosinophils # (Manual) PT INR Fibrinogen dRVVT Confirm Interp Factor V Activity POC ABG pH POC ABG pCO2 POC ABG pO2 ABG pO2 ABG HCO3 ABG Hemoglobin Oxyhemoglobin Sodium Potassium 5.1 H Chloride Carbon Dioxide 19 L BUN 78 H Creatinine 2.2 H Glucose 116 H POC Glucose 118 H Lactic Acid Calcium Phosphorus Magnesium Direct Bilirubin AST ALT Alkaline Phosphatase Lactate Dehydrogenase Troponin T C-Reactive Protein Total Protein Albumin Prealbumin Triglycerides Cholesterol LDL Cholesterol Direct HDL Cholesterol Urine pH Urine WBC (Auto) Urine Creatinine Urine Total Protein Fluid Total Protein Vancomycin Trough Rheumatoid Factor Complement C4 Miscellaneous Test Crossmatch 10/29/16 10/30/16 10/30/16 17:49 01:52 03:28 WBC RBC Hgb Hct MCV MCH MCHC RDW Plt Count Lymph % (Auto) Stone % (Auto) Lymph # Stone # Baso # Seg Neutrophils % Seg Neuts % (Manual) Lymphocytes % (Manual) Monocytes % (Manual) Eosinophils % (Manual) Basophils % (Manual) Nucleated RBC % Seg Neutrophils # Seg Neutrophils # Man Lymphocytes # (Manual) Monocytes # (Manual) Eosinophils # (Manual) PT INR Fibrinogen dRVVT Confirm Interp Factor V Activity POC ABG pH POC ABG pCO2 POC ABG pO2 ABG pO2 ABG HCO3 ABG Hemoglobin Oxyhemoglobin Sodium Potassium 5.4 H Chloride 97.5 L Carbon Dioxide 19 L BUN 90 H Creatinine 2.5 H Glucose POC Glucose 120 H 129 H Lactic Acid Calcium Phosphorus 5.20 H Magnesium Direct Bilirubin AST ALT Alkaline Phosphatase Lactate Dehydrogenase Troponin T C-Reactive Protein Total Protein Albumin Prealbumin Triglycerides Cholesterol LDL Cholesterol Direct HDL Cholesterol Urine pH Urine WBC (Auto) Urine Creatinine Urine Total Protein Fluid Total Protein Vancomycin Trough Rheumatoid Factor Complement C4 Miscellaneous Test Crossmatch 10/30/16 10/30/16 10/30/16 03:28 08:19 08:19 WBC 11.6 H 15.9 H RBC 2.75 L 2.82 L Hgb 7.9 L 8.3 L Hct 24.2 L 25.2 L MCV MCH MCHC RDW 16.7 H 17.2 H Plt Count Lymph % (Auto) Stone % (Auto) 9.8 H Lymph # Stone # 1.1 H Baso # Seg Neutrophils % 74.2 H Seg Neuts % (Manual) Lymphocytes % (Manual) Monocytes % (Manual) Eosinophils % (Manual) Basophils % (Manual) Nucleated RBC % Seg Neutrophils # 8.6 H Seg Neutrophils # Man Lymphocytes # (Manual) Monocytes # (Manual) Eosinophils # (Manual) PT INR Fibrinogen dRVVT Confirm Interp Factor V Activity POC ABG pH POC ABG pCO2 POC ABG pO2 ABG pO2 ABG HCO3 ABG Hemoglobin Oxyhemoglobin Sodium Potassium 5.3 H Chloride 97.4 L Carbon Dioxide 19 L BUN 93 H Creatinine 2.6 H Glucose POC Glucose Lactic Acid Calcium Phosphorus Magnesium Direct Bilirubin AST ALT Alkaline Phosphatase Lactate Dehydrogenase Troponin T C-Reactive Protein Total Protein Albumin Prealbumin Triglycerides Cholesterol LDL Cholesterol Direct HDL Cholesterol Urine pH Urine WBC (Auto) Urine Creatinine Urine Total Protein Fluid Total Protein Vancomycin Trough Rheumatoid Factor Complement C4 Miscellaneous Test Crossmatch 10/30/16 10/30/16 10/31/16 17:11 23:56 00:40 WBC RBC Hgb Hct MCV MCH MCHC RDW Plt Count Lymph % (Auto) Stone % (Auto) Lymph # Stone # Baso # Seg Neutrophils % Seg Neuts % (Manual) Lymphocytes % (Manual) Monocytes % (Manual) Eosinophils % (Manual) Basophils % (Manual) Nucleated RBC % Seg Neutrophils # Seg Neutrophils # Man Lymphocytes # (Manual) Monocytes # (Manual) Eosinophils # (Manual) PT INR Fibrinogen dRVVT Confirm Interp Factor V Activity POC ABG pH POC ABG pCO2 POC ABG pO2 ABG pO2 ABG HCO3 ABG Hemoglobin Oxyhemoglobin Sodium Potassium Chloride Carbon Dioxide BUN Creatinine Glucose POC Glucose 106 H 117 H 120 H Lactic Acid Calcium Phosphorus Magnesium Direct Bilirubin AST ALT Alkaline Phosphatase Lactate Dehydrogenase Troponin T C-Reactive Protein Total Protein Albumin Prealbumin Triglycerides Cholesterol LDL Cholesterol Direct HDL Cholesterol Urine pH Urine WBC (Auto) Urine Creatinine Urine Total Protein Fluid Total Protein Vancomycin Trough Rheumatoid Factor Complement C4 Miscellaneous Test Crossmatch 10/31/16 10/31/16 10/31/16 05:43 07:15 07:15 WBC 12.1 H RBC 2.63 L Hgb 7.7 L Hct 23.3 L MCV MCH MCHC RDW 16.7 H Plt Count Lymph % (Auto) 11.7 L Stone % (Auto) 7.7 H Lymph # Stone # 0.9 H Baso # Seg Neutrophils % 78.0 H Seg Neuts % (Manual) Lymphocytes % (Manual) Monocytes % (Manual) Eosinophils % (Manual) Basophils % (Manual) Nucleated RBC % Seg Neutrophils # 9.4 H Seg Neutrophils # Man Lymphocytes # (Manual) Monocytes # (Manual) Eosinophils # (Manual) PT INR Fibrinogen dRVVT Confirm Interp Factor V Activity POC ABG pH POC ABG pCO2 POC ABG pO2 ABG pO2 ABG HCO3 ABG Hemoglobin Oxyhemoglobin Sodium Potassium Chloride 96.4 L Carbon Dioxide 21 L BUN 99 H Creatinine 2.6 H Glucose 144 H POC Glucose 125 H Lactic Acid Calcium Phosphorus 4.80 H Magnesium Direct Bilirubin AST ALT Alkaline Phosphatase Lactate Dehydrogenase Troponin T C-Reactive Protein Total Protein Albumin Prealbumin Triglycerides Cholesterol LDL Cholesterol Direct HDL Cholesterol Urine pH Urine WBC (Auto) Urine Creatinine Urine Total Protein Fluid Total Protein Vancomycin Trough Rheumatoid Factor Complement C4 Miscellaneous Test Crossmatch 10/31/16 10/31/16 11/01/16 11:46 18:34 00:20 WBC RBC Hgb Hct MCV MCH MCHC RDW Plt Count Lymph % (Auto) Stone % (Auto) Lymph # Stone # Baso # Seg Neutrophils % Seg Neuts % (Manual) Lymphocytes % (Manual) Monocytes % (Manual) Eosinophils % (Manual) Basophils % (Manual) Nucleated RBC % Seg Neutrophils # Seg Neutrophils # Man Lymphocytes # (Manual) Monocytes # (Manual) Eosinophils # (Manual) PT INR Fibrinogen dRVVT Confirm Interp Factor V Activity POC ABG pH POC ABG pCO2 POC ABG pO2 ABG pO2 ABG HCO3 ABG Hemoglobin Oxyhemoglobin Sodium Potassium Chloride Carbon Dioxide BUN Creatinine Glucose POC Glucose 159 H 140 H 132 H Lactic Acid Calcium Phosphorus Magnesium Direct Bilirubin AST ALT Alkaline Phosphatase Lactate Dehydrogenase Troponin T C-Reactive Protein Total Protein Albumin Prealbumin Triglycerides Cholesterol LDL Cholesterol Direct HDL Cholesterol Urine pH Urine WBC (Auto) Urine Creatinine Urine Total Protein Fluid Total Protein Vancomycin Trough Rheumatoid Factor Complement C4 Miscellaneous Test Crossmatch 11/01/16 11/01/16 11/01/16 04:55 04:55 06:11 WBC 11.2 H RBC 2.68 L Hgb 7.5 L Hct 23.7 L MCV MCH MCHC RDW 16.1 H Plt Count Lymph % (Auto) Stone % (Auto) 9.8 H Lymph # Stone # 1.1 H Baso # Seg Neutrophils % 70.8 H Seg Neuts % (Manual) Lymphocytes % (Manual) Monocytes % (Manual) Eosinophils % (Manual) Basophils % (Manual) Nucleated RBC % Seg Neutrophils # 7.9 H Seg Neutrophils # Man Lymphocytes # (Manual) Monocytes # (Manual) Eosinophils # (Manual) PT INR Fibrinogen dRVVT Confirm Interp Factor V Activity POC ABG pH POC ABG pCO2 POC ABG pO2 ABG pO2 ABG HCO3 ABG Hemoglobin Oxyhemoglobin Sodium Potassium 3.3 L D Chloride Carbon Dioxide BUN 61 H Creatinine 1.9 H Glucose 114 H POC Glucose 115 H Lactic Acid Calcium Phosphorus 1.80 L D Magnesium Direct Bilirubin AST ALT Alkaline Phosphatase Lactate Dehydrogenase Troponin T C-Reactive Protein Total Protein Albumin Prealbumin Triglycerides Cholesterol LDL Cholesterol Direct HDL Cholesterol Urine pH Urine WBC (Auto) Urine Creatinine Urine Total Protein Fluid Total Protein Vancomycin Trough Rheumatoid Factor Complement C4 Miscellaneous Test Crossmatch 11/01/16 11/01/16 11/01/16 12:29 18:23 23:58 WBC RBC Hgb Hct MCV MCH MCHC RDW Plt Count Lymph % (Auto) Stone % (Auto) Lymph # Stone # Baso # Seg Neutrophils % Seg Neuts % (Manual) Lymphocytes % (Manual) Monocytes % (Manual) Eosinophils % (Manual) Basophils % (Manual) Nucleated RBC % Seg Neutrophils # Seg Neutrophils # Man Lymphocytes # (Manual) Monocytes # (Manual) Eosinophils # (Manual) PT INR Fibrinogen dRVVT Confirm Interp Factor V Activity POC ABG pH POC ABG pCO2 POC ABG pO2 ABG pO2 ABG HCO3 ABG Hemoglobin Oxyhemoglobin Sodium Potassium Chloride Carbon Dioxide BUN Creatinine Glucose POC Glucose 142 H 143 H 128 H Lactic Acid Calcium Phosphorus Magnesium Direct Bilirubin AST ALT Alkaline Phosphatase Lactate Dehydrogenase Troponin T C-Reactive Protein Total Protein Albumin Prealbumin Triglycerides Cholesterol LDL Cholesterol Direct HDL Cholesterol Urine pH Urine WBC (Auto) Urine Creatinine Urine Total Protein Fluid Total Protein Vancomycin Trough Rheumatoid Factor Complement C4 Miscellaneous Test Crossmatch 11/02/16 11/02/16 11/02/16 04:16 05:29 11:58 WBC RBC Hgb Hct MCV MCH MCHC RDW Plt Count Lymph % (Auto) Stone % (Auto) Lymph # Stone # Baso # Seg Neutrophils % Seg Neuts % (Manual) Lymphocytes % (Manual) Monocytes % (Manual) Eosinophils % (Manual) Basophils % (Manual) Nucleated RBC % Seg Neutrophils # Seg Neutrophils # Man Lymphocytes # (Manual) Monocytes # (Manual) Eosinophils # (Manual) PT INR Fibrinogen dRVVT Confirm Interp Factor V Activity POC ABG pH POC ABG pCO2 POC ABG pO2 ABG pO2 ABG HCO3 ABG Hemoglobin Oxyhemoglobin Sodium Potassium 3.1 L Chloride Carbon Dioxide BUN 73 H Creatinine 2.3 H Glucose 112 H POC Glucose 135 H 149 H Lactic Acid Calcium Phosphorus Magnesium Direct Bilirubin AST ALT Alkaline Phosphatase Lactate Dehydrogenase Troponin T C-Reactive Protein Total Protein Albumin Prealbumin Triglycerides Cholesterol LDL Cholesterol Direct HDL Cholesterol Urine pH Urine WBC (Auto) Urine Creatinine Urine Total Protein Fluid Total Protein Vancomycin Trough Rheumatoid Factor Complement C4 Miscellaneous Test Crossmatch 11/02/16 11/02/16 11/03/16 17:42 22:54 06:00 WBC RBC Hgb Hct MCV MCH MCHC RDW Plt Count Lymph % (Auto) Stone % (Auto) Lymph # Stone # Baso # Seg Neutrophils % Seg Neuts % (Manual) Lymphocytes % (Manual) Monocytes % (Manual) Eosinophils % (Manual) Basophils % (Manual) Nucleated RBC % Seg Neutrophils # Seg Neutrophils # Man Lymphocytes # (Manual) Monocytes # (Manual) Eosinophils # (Manual) PT INR Fibrinogen dRVVT Confirm Interp Factor V Activity POC ABG pH POC ABG pCO2 POC ABG pO2 ABG pO2 ABG HCO3 ABG Hemoglobin Oxyhemoglobin Sodium Potassium Chloride 96.7 L Carbon Dioxide BUN 41 H Creatinine 1.5 H Glucose 145 H POC Glucose 182 H 115 H Lactic Acid Calcium Phosphorus 1.60 L D Magnesium 1.50 L Direct Bilirubin AST ALT Alkaline Phosphatase Lactate Dehydrogenase Troponin T C-Reactive Protein Total Protein Albumin Prealbumin Triglycerides Cholesterol LDL Cholesterol Direct HDL Cholesterol Urine pH Urine WBC (Auto) Urine Creatinine Urine Total Protein Fluid Total Protein Vancomycin Trough Rheumatoid Factor Complement C4 Miscellaneous Test Crossmatch 11/03/16 11/03/16 11/03/16 11:53 17:45 23:37 WBC RBC Hgb Hct MCV MCH MCHC RDW Plt Count Lymph % (Auto) Stone % (Auto) Lymph # Stone # Baso # Seg Neutrophils % Seg Neuts % (Manual) Lymphocytes % (Manual) Monocytes % (Manual) Eosinophils % (Manual) Basophils % (Manual) Nucleated RBC % Seg Neutrophils # Seg Neutrophils # Man Lymphocytes # (Manual) Monocytes # (Manual) Eosinophils # (Manual) PT INR Fibrinogen dRVVT Confirm Interp Factor V Activity POC ABG pH POC ABG pCO2 POC ABG pO2 ABG pO2 ABG HCO3 ABG Hemoglobin Oxyhemoglobin Sodium Potassium Chloride Carbon Dioxide BUN Creatinine Glucose POC Glucose 131 H 134 H 113 H Lactic Acid Calcium Phosphorus Magnesium Direct Bilirubin AST ALT Alkaline Phosphatase Lactate Dehydrogenase Troponin T C-Reactive Protein Total Protein Albumin Prealbumin Triglycerides Cholesterol LDL Cholesterol Direct HDL Cholesterol Urine pH Urine WBC (Auto) Urine Creatinine Urine Total Protein Fluid Total Protein Vancomycin Trough Rheumatoid Factor Complement C4 Miscellaneous Test Crossmatch 11/04/16 11/04/16 11/04/16 05:41 06:00 12:10 WBC RBC Hgb Hct MCV MCH MCHC RDW Plt Count Lymph % (Auto) Stone % (Auto) Lymph # Stone # Baso # Seg Neutrophils % Seg Neuts % (Manual) Lymphocytes % (Manual) Monocytes % (Manual) Eosinophils % (Manual) Basophils % (Manual) Nucleated RBC % Seg Neutrophils # Seg Neutrophils # Man Lymphocytes # (Manual) Monocytes # (Manual) Eosinophils # (Manual) PT INR Fibrinogen dRVVT Confirm Interp Factor V Activity POC ABG pH POC ABG pCO2 POC ABG pO2 ABG pO2 ABG HCO3 ABG Hemoglobin Oxyhemoglobin Sodium Potassium Chloride 96.7 L Carbon Dioxide BUN 52 H Creatinine 1.9 H Glucose 126 H POC Glucose 137 H 191 H Lactic Acid Calcium Phosphorus Magnesium Direct Bilirubin AST ALT Alkaline Phosphatase Lactate Dehydrogenase Troponin T C-Reactive Protein Total Protein Albumin Prealbumin Triglycerides Cholesterol LDL Cholesterol Direct HDL Cholesterol Urine pH Urine WBC (Auto) Urine Creatinine Urine Total Protein Fluid Total Protein Vancomycin Trough Rheumatoid Factor Complement C4 Miscellaneous Test Crossmatch 11/04/16 11/05/16 11/05/16 22:57 03:10 05:10 WBC RBC Hgb Hct MCV MCH MCHC RDW Plt Count Lymph % (Auto) Stone % (Auto) Lymph # Stone # Baso # Seg Neutrophils % Seg Neuts % (Manual) Lymphocytes % (Manual) Monocytes % (Manual) Eosinophils % (Manual) Basophils % (Manual) Nucleated RBC % Seg Neutrophils # Seg Neutrophils # Man Lymphocytes # (Manual) Monocytes # (Manual) Eosinophils # (Manual) PT INR Fibrinogen dRVVT Confirm Interp Factor V Activity POC ABG pH POC ABG pCO2 POC ABG pO2 ABG pO2 ABG HCO3 ABG Hemoglobin Oxyhemoglobin Sodium 136 L Potassium Chloride 97.2 L Carbon Dioxide BUN 32 H Creatinine 1.3 H Glucose 123 H POC Glucose 125 H 108 H Lactic Acid Calcium 7.8 L Phosphorus Magnesium Direct Bilirubin AST ALT Alkaline Phosphatase Lactate Dehydrogenase Troponin T C-Reactive Protein Total Protein Albumin Prealbumin Triglycerides Cholesterol LDL Cholesterol Direct HDL Cholesterol Urine pH Urine WBC (Auto) Urine Creatinine Urine Total Protein Fluid Total Protein Vancomycin Trough Rheumatoid Factor Complement C4 Miscellaneous Test Crossmatch 11/05/16 11/05/16 11/05/16 12:23 13:09 13:25 WBC RBC Hgb Hct MCV MCH MCHC RDW Plt Count Lymph % (Auto) Stone % (Auto) Lymph # Stone # Baso # Seg Neutrophils % Seg Neuts % (Manual) Lymphocytes % (Manual) Monocytes % (Manual) Eosinophils % (Manual) Basophils % (Manual) Nucleated RBC % Seg Neutrophils # Seg Neutrophils # Man Lymphocytes # (Manual) Monocytes # (Manual) Eosinophils # (Manual) PT INR Fibrinogen dRVVT Confirm Interp Factor V Activity POC ABG pH POC ABG pCO2 POC ABG pO2 ABG pO2 ABG HCO3 ABG Hemoglobin Oxyhemoglobin Sodium Potassium Chloride Carbon Dioxide BUN Creatinine Glucose POC Glucose 124 H Lactic Acid Calcium Phosphorus Magnesium Direct Bilirubin AST ALT Alkaline Phosphatase Lactate Dehydrogenase Troponin T C-Reactive Protein 11.40 H Total Protein Albumin Prealbumin Triglycerides Cholesterol LDL Cholesterol Direct HDL Cholesterol Urine pH 9.0 H Urine WBC (Auto) Urine Creatinine Urine Total Protein Fluid Total Protein Vancomycin Trough Rheumatoid Factor Complement C4 Miscellaneous Test Crossmatch 11/05/16 11/05/16 11/05/16 13:25 17:54 23:42 WBC RBC Hgb Hct MCV MCH MCHC RDW Plt Count Lymph % (Auto) Stone % (Auto) Lymph # Stone # Baso # Seg Neutrophils % Seg Neuts % (Manual) Lymphocytes % (Manual) Monocytes % (Manual) Eosinophils % (Manual) Basophils % (Manual) Nucleated RBC % Seg Neutrophils # Seg Neutrophils # Man Lymphocytes # (Manual) Monocytes # (Manual) Eosinophils # (Manual) PT INR Fibrinogen dRVVT Confirm Interp Factor V Activity POC ABG pH POC ABG pCO2 POC ABG pO2 ABG pO2 ABG HCO3 ABG Hemoglobin Oxyhemoglobin Sodium Potassium Chloride Carbon Dioxide BUN Creatinine Glucose POC Glucose 114 H 134 H Lactic Acid Calcium Phosphorus Magnesium Direct Bilirubin AST ALT Alkaline Phosphatase Lactate Dehydrogenase Troponin T C-Reactive Protein Total Protein Albumin Prealbumin Triglycerides Cholesterol LDL Cholesterol Direct HDL Cholesterol Urine pH Urine WBC (Auto) Urine Creatinine Urine Total Protein Fluid Total Protein Vancomycin Trough Rheumatoid Factor Complement C4 Miscellaneous Test Flexitest 1 H Crossmatch 11/06/16 11/06/16 11/06/16 04:56 06:25 06:25 WBC RBC 2.50 L Hgb 7.3 L Hct 22.5 L MCV MCH MCHC RDW 16.9 H Plt Count Lymph % (Auto) Stone % (Auto) 10.5 H Lymph # Stone # 1.1 H Baso # Seg Neutrophils % Seg Neuts % (Manual) Lymphocytes % (Manual) Monocytes % (Manual) Eosinophils % (Manual) Basophils % (Manual) Nucleated RBC % Seg Neutrophils # Seg Neutrophils # Man Lymphocytes # (Manual) Monocytes # (Manual) Eosinophils # (Manual) PT INR Fibrinogen dRVVT Confirm Interp Factor V Activity POC ABG pH POC ABG pCO2 POC ABG pO2 ABG pO2 ABG HCO3 ABG Hemoglobin Oxyhemoglobin Sodium Potassium 5.1 H Chloride 95.9 L Carbon Dioxide BUN 52 H Creatinine 1.8 H Glucose 117 H POC Glucose 120 H Lactic Acid Calcium Phosphorus Magnesium Direct Bilirubin AST 103 H ALT 77 H Alkaline Phosphatase 285 H Lactate Dehydrogenase Troponin T C-Reactive Protein Total Protein 6.2 L Albumin 1.8 L Prealbumin 0.180 L Triglycerides Cholesterol LDL Cholesterol Direct HDL Cholesterol Urine pH Urine WBC (Auto) Urine Creatinine Urine Total Protein Fluid Total Protein Vancomycin Trough Rheumatoid Factor Complement C4 Miscellaneous Test Crossmatch 11/06/16 11/06/16 11/06/16 11:56 17:14 23:52 WBC RBC Hgb Hct MCV MCH MCHC RDW Plt Count Lymph % (Auto) Stone % (Auto) Lymph # Stone # Baso # Seg Neutrophils % Seg Neuts % (Manual) Lymphocytes % (Manual) Monocytes % (Manual) Eosinophils % (Manual) Basophils % (Manual) Nucleated RBC % Seg Neutrophils # Seg Neutrophils # Man Lymphocytes # (Manual) Monocytes # (Manual) Eosinophils # (Manual) PT INR Fibrinogen dRVVT Confirm Interp Factor V Activity POC ABG pH POC ABG pCO2 POC ABG pO2 ABG pO2 ABG HCO3 ABG Hemoglobin Oxyhemoglobin Sodium Potassium Chloride Carbon Dioxide BUN Creatinine Glucose POC Glucose 141 H 125 H 130 H Lactic Acid Calcium Phosphorus Magnesium Direct Bilirubin AST ALT Alkaline Phosphatase Lactate Dehydrogenase Troponin T C-Reactive Protein Total Protein Albumin Prealbumin Triglycerides Cholesterol LDL Cholesterol Direct HDL Cholesterol Urine pH Urine WBC (Auto) Urine Creatinine Urine Total Protein Fluid Total Protein Vancomycin Trough Rheumatoid Factor Complement C4 Miscellaneous Test Crossmatch 11/07/16 11/07/1617 06:30 06:30 09:37 WBC RBC 2.18 L Hgb 6.3 L Hct 19.7 L* MCV MCH MCHC RDW 16.8 H Plt Count Lymph % (Auto) Stone % (Auto) 10.0 H Lymph # Stone # 1.0 H Baso # Seg Neutrophils % Seg Neuts % (Manual) Lymphocytes % (Manual) Monocytes % (Manual) Eosinophils % (Manual) Basophils % (Manual) Nucleated RBC % Seg Neutrophils # Seg Neutrophils # Man Lymphocytes # (Manual) Monocytes # (Manual) Eosinophils # (Manual) PT INR Fibrinogen dRVVT Confirm Interp Factor V Activity POC ABG pH POC ABG pCO2 POC ABG pO2 ABG pO2 ABG HCO3 ABG Hemoglobin Oxyhemoglobin Sodium 135 L Potassium Chloride 95.6 L Carbon Dioxide BUN 70 H Creatinine 2.0 H Glucose 126 H POC Glucose Lactic Acid Calcium Phosphorus Magnesium Direct Bilirubin AST ALT Alkaline Phosphatase Lactate Dehydrogenase Troponin T C-Reactive Protein Total Protein Albumin Prealbumin Triglycerides Cholesterol LDL Cholesterol Direct HDL Cholesterol Urine pH Urine WBC (Auto) Urine Creatinine Urine Total Protein Fluid Total Protein Vancomycin Trough Rheumatoid Factor Complement C4 Miscellaneous Test Crossmatch See Detail 11/07/16 11/07/16 11/07/16 12:52 18:51 21:26 WBC RBC Hgb Hct MCV MCH MCHC RDW Plt Count Lymph % (Auto) Stone % (Auto) Lymph # Stone # Baso # Seg Neutrophils % Seg Neuts % (Manual) Lymphocytes % (Manual) Monocytes % (Manual) Eosinophils % (Manual) Basophils % (Manual) Nucleated RBC % Seg Neutrophils # Seg Neutrophils # Man Lymphocytes # (Manual) Monocytes # (Manual) Eosinophils # (Manual) PT INR Fibrinogen dRVVT Confirm Interp Factor V Activity POC ABG pH 7.523 H POC ABG pCO2 34.6 L POC ABG pO2 53 L ABG pO2 ABG HCO3 ABG Hemoglobin Oxyhemoglobin Sodium Potassium Chloride Carbon Dioxide BUN Creatinine Glucose POC Glucose 142 H 155 H Lactic Acid Calcium Phosphorus Magnesium Direct Bilirubin AST ALT Alkaline Phosphatase Lactate Dehydrogenase Troponin T C-Reactive Protein Total Protein Albumin Prealbumin Triglycerides Cholesterol LDL Cholesterol Direct HDL Cholesterol Urine pH Urine WBC (Auto) Urine Creatinine Urine Total Protein Fluid Total Protein Vancomycin Trough Rheumatoid Factor Complement C4 Miscellaneous Test Crossmatch 11/07/16 11/08/16 11/08/16 21:34 13:03 23:37 WBC RBC 2.63 L Hgb 7.7 L Hct 22.7 L MCV MCH MCHC RDW 17.0 H Plt Count Lymph % (Auto) Stone % (Auto) Lymph # Stone # Baso # Seg Neutrophils % Seg Neuts % (Manual) Lymphocytes % (Manual) Monocytes % (Manual) Eosinophils % (Manual) Basophils % (Manual) Nucleated RBC % Seg Neutrophils # Seg Neutrophils # Man Lymphocytes # (Manual) Monocytes # (Manual) Eosinophils # (Manual) PT INR Fibrinogen dRVVT Confirm Interp Factor V Activity POC ABG pH 7.478 H POC ABG pCO2 34.0 L POC ABG pO2 50 L ABG pO2 ABG HCO3 ABG Hemoglobin Oxyhemoglobin Sodium Potassium Chloride Carbon Dioxide BUN Creatinine Glucose POC Glucose 113 H Lactic Acid Calcium Phosphorus Magnesium Direct Bilirubin AST ALT Alkaline Phosphatase Lactate Dehydrogenase Troponin T C-Reactive Protein Total Protein Albumin Prealbumin Triglycerides Cholesterol LDL Cholesterol Direct HDL Cholesterol Urine pH Urine WBC (Auto) Urine Creatinine Urine Total Protein Fluid Total Protein Vancomycin Trough Rheumatoid Factor Complement C4 Miscellaneous Test Crossmatch 11/09/16 11/09/16 11/09/16 04:35 10:15 18:21 WBC RBC 2.68 L Hgb 7.8 L Hct 23.3 L MCV MCH MCHC RDW 17.0 H Plt Count Lymph % (Auto) Stone % (Auto) 12.1 H Lymph # Stone # 1.1 H Baso # Seg Neutrophils % Seg Neuts % (Manual) Lymphocytes % (Manual) Monocytes % (Manual) Eosinophils % (Manual) Basophils % (Manual) Nucleated RBC % Seg Neutrophils # Seg Neutrophils # Man Lymphocytes # (Manual) Monocytes # (Manual) Eosinophils # (Manual) PT INR Fibrinogen dRVVT Confirm Interp Factor V Activity POC ABG pH POC ABG pCO2 POC ABG pO2 ABG pO2 ABG HCO3 ABG Hemoglobin Oxyhemoglobin Sodium Potassium Chloride Carbon Dioxide BUN 51 H Creatinine 1.8 H Glucose POC Glucose 60 L Lactic Acid Calcium 8.3 L Phosphorus Magnesium Direct Bilirubin AST ALT Alkaline Phosphatase Lactate Dehydrogenase Troponin T C-Reactive Protein Total Protein Albumin Prealbumin Triglycerides Cholesterol LDL Cholesterol Direct HDL Cholesterol Urine pH Urine WBC (Auto) Urine Creatinine Urine Total Protein Fluid Total Protein Vancomycin Trough Rheumatoid Factor Complement C4 Miscellaneous Test Crossmatch 11/09/16 11/10/16 11/10/16 18:55 07:00 11:51 WBC RBC Hgb Hct MCV MCH MCHC RDW Plt Count Lymph % (Auto) Stone % (Auto) Lymph # Stone # Baso # Seg Neutrophils % Seg Neuts % (Manual) Lymphocytes % (Manual) Monocytes % (Manual) Eosinophils % (Manual) Basophils % (Manual) Nucleated RBC % Seg Neutrophils # Seg Neutrophils # Man Lymphocytes # (Manual) Monocytes # (Manual) Eosinophils # (Manual) PT INR Fibrinogen dRVVT Confirm Interp Factor V Activity POC ABG pH POC ABG pCO2 POC ABG pO2 ABG pO2 ABG HCO3 ABG Hemoglobin Oxyhemoglobin Sodium Potassium 3.0 L D Chloride 97.4 L Carbon Dioxide BUN 28 H Creatinine 1.3 H Glucose POC Glucose 68 L 120 H Lactic Acid Calcium 7.8 L Phosphorus Magnesium Direct Bilirubin AST ALT Alkaline Phosphatase Lactate Dehydrogenase Troponin T C-Reactive Protein Total Protein Albumin Prealbumin Triglycerides Cholesterol LDL Cholesterol Direct HDL Cholesterol Urine pH Urine WBC (Auto) Urine Creatinine Urine Total Protein Fluid Total Protein Vancomycin Trough Rheumatoid Factor Complement C4 Miscellaneous Test Crossmatch 11/10/16 11/11/16 11/11/16 14:20 06:59 06:59 WBC RBC 2.81 L Hgb 8.1 L Hct 24.4 L MCV MCH MCHC RDW 16.4 H Plt Count Lymph % (Auto) Stone % (Auto) 10.8 H Lymph # Stone # 1.0 H Baso # Seg Neutrophils % Seg Neuts % (Manual) Lymphocytes % (Manual) Monocytes % (Manual) Eosinophils % (Manual) Basophils % (Manual) Nucleated RBC % Seg Neutrophils # Seg Neutrophils # Man Lymphocytes # (Manual) Monocytes # (Manual) Eosinophils # (Manual) PT INR Fibrinogen dRVVT Confirm Interp Factor V Activity POC ABG pH POC ABG pCO2 POC ABG pO2 ABG pO2 ABG HCO3 ABG Hemoglobin Oxyhemoglobin Sodium Potassium Chloride Carbon Dioxide BUN Creatinine Glucose POC Glucose Lactic Acid Calcium Phosphorus Magnesium Direct Bilirubin AST ALT Alkaline Phosphatase Lactate Dehydrogenase 196 H Troponin T C-Reactive Protein Total Protein 6.1 L Albumin Prealbumin Triglycerides Cholesterol LDL Cholesterol Direct HDL Cholesterol Urine pH Urine WBC (Auto) Urine Creatinine Urine Total Protein Fluid Total Protein < 3.0 L Vancomycin Trough Rheumatoid Factor Complement C4 Miscellaneous Test Crossmatch 11/11/16 11/11/16 11/12/16 06:59 09:50 04:00 WBC RBC Hgb Hct MCV MCH MCHC RDW Plt Count Lymph % (Auto) Stone % (Auto) Lymph # Stone # Baso # Seg Neutrophils % Seg Neuts % (Manual) Lymphocytes % (Manual) Monocytes % (Manual) Eosinophils % (Manual) Basophils % (Manual) Nucleated RBC % Seg Neutrophils # Seg Neutrophils # Man Lymphocytes # (Manual) Monocytes # (Manual) Eosinophils # (Manual) PT INR 1.18 H Fibrinogen dRVVT Confirm Interp Factor V Activity POC ABG pH POC ABG pCO2 POC ABG pO2 ABG pO2 ABG HCO3 ABG Hemoglobin Oxyhemoglobin Sodium 136 L 133 L Potassium Chloride 96.1 L 94.8 L Carbon Dioxide 21 L BUN 37 H 42 H Creatinine 1.8 H 2.0 H Glucose POC Glucose Lactic Acid Calcium Phosphorus Magnesium Direct Bilirubin AST ALT Alkaline Phosphatase Lactate Dehydrogenase Troponin T C-Reactive Protein Total Protein Albumin Prealbumin Triglycerides Cholesterol LDL Cholesterol Direct HDL Cholesterol Urine pH Urine WBC (Auto) Urine Creatinine Urine Total Protein Fluid Total Protein Vancomycin Trough Rheumatoid Factor Complement C4 Miscellaneous Test Crossmatch 11/12/16 11/12/16 11/13/16 04:00 23:55 05:53 WBC RBC Hgb 8.9 L Hct 27.2 L MCV MCH MCHC RDW Plt Count Lymph % (Auto) Stone % (Auto) Lymph # Stone # Baso # Seg Neutrophils % Seg Neuts % (Manual) Lymphocytes % (Manual) Monocytes % (Manual) Eosinophils % (Manual) Basophils % (Manual) Nucleated RBC % Seg Neutrophils # Seg Neutrophils # Man Lymphocytes # (Manual) Monocytes # (Manual) Eosinophils # (Manual) PT INR Fibrinogen dRVVT Confirm Interp Factor V Activity POC ABG pH POC ABG pCO2 POC ABG pO2 ABG pO2 ABG HCO3 ABG Hemoglobin Oxyhemoglobin Sodium Potassium Chloride Carbon Dioxide BUN Creatinine Glucose POC Glucose 132 H 120 H Lactic Acid Calcium Phosphorus Magnesium Direct Bilirubin AST ALT Alkaline Phosphatase Lactate Dehydrogenase Troponin T C-Reactive Protein Total Protein Albumin Prealbumin Triglycerides Cholesterol LDL Cholesterol Direct HDL Cholesterol Urine pH Urine WBC (Auto) Urine Creatinine Urine Total Protein Fluid Total Protein Vancomycin Trough Rheumatoid Factor Complement C4 Miscellaneous Test Crossmatch 11/13/16 11/13/16 11/13/16 11:43 17:09 23:41 WBC RBC Hgb Hct MCV MCH MCHC RDW Plt Count Lymph % (Auto) Stone % (Auto) Lymph # Stone # Baso # Seg Neutrophils % Seg Neuts % (Manual) Lymphocytes % (Manual) Monocytes % (Manual) Eosinophils % (Manual) Basophils % (Manual) Nucleated RBC % Seg Neutrophils # Seg Neutrophils # Man Lymphocytes # (Manual) Monocytes # (Manual) Eosinophils # (Manual) PT INR Fibrinogen dRVVT Confirm Interp Factor V Activity POC ABG pH POC ABG pCO2 POC ABG pO2 ABG pO2 ABG HCO3 ABG Hemoglobin Oxyhemoglobin Sodium Potassium Chloride Carbon Dioxide BUN Creatinine Glucose POC Glucose 114 H 113 H 108 H Lactic Acid Calcium Phosphorus Magnesium Direct Bilirubin AST ALT Alkaline Phosphatase Lactate Dehydrogenase Troponin T C-Reactive Protein Total Protein Albumin Prealbumin Triglycerides Cholesterol LDL Cholesterol Direct HDL Cholesterol Urine pH Urine WBC (Auto) Urine Creatinine Urine Total Protein Fluid Total Protein Vancomycin Trough Rheumatoid Factor Complement C4 Miscellaneous Test Crossmatch 11/13/16 11/15/16 11/15/16 Unknown 00:37 03:30 WBC 11.2 H RBC 2.72 L Hgb 7.6 L Hct 23.4 L MCV MCH MCHC RDW 16.5 H Plt Count Lymph % (Auto) Stone % (Auto) Lymph # Stone # Baso # Seg Neutrophils % Seg Neuts % (Manual) Lymphocytes % (Manual) Monocytes % (Manual) Eosinophils % (Manual) Basophils % (Manual) Nucleated RBC % Seg Neutrophils # Seg Neutrophils # Man Lymphocytes # (Manual) Monocytes # (Manual) Eosinophils # (Manual) PT INR Fibrinogen dRVVT Confirm Interp Factor V Activity POC ABG pH POC ABG pCO2 POC ABG pO2 ABG pO2 ABG HCO3 ABG Hemoglobin Oxyhemoglobin Sodium 135 L Potassium Chloride 95.2 L Carbon Dioxide BUN 52 H Creatinine 2.2 H Glucose POC Glucose 108 H Lactic Acid Calcium Phosphorus Magnesium Direct Bilirubin AST ALT Alkaline Phosphatase Lactate Dehydrogenase Troponin T C-Reactive Protein Total Protein Albumin Prealbumin Triglycerides Cholesterol LDL Cholesterol Direct HDL Cholesterol Urine pH Urine WBC (Auto) Urine Creatinine Urine Total Protein Fluid Total Protein Vancomycin Trough Rheumatoid Factor Complement C4 Miscellaneous Test Crossmatch 11/15/16 11/15/16 11/15/16 03:30 05:04 11:50 WBC RBC Hgb Hct MCV MCH MCHC RDW Plt Count Lymph % (Auto) Stone % (Auto) Lymph # Stone # Baso # Seg Neutrophils % Seg Neuts % (Manual) Lymphocytes % (Manual) Monocytes % (Manual) Eosinophils % (Manual) Basophils % (Manual) Nucleated RBC % Seg Neutrophils # Seg Neutrophils # Man Lymphocytes # (Manual) Monocytes # (Manual) Eosinophils # (Manual) PT INR Fibrinogen dRVVT Confirm Interp Factor V Activity POC ABG pH POC ABG pCO2 POC ABG pO2 ABG pO2 ABG HCO3 ABG Hemoglobin Oxyhemoglobin Sodium Potassium 3.4 L Chloride Carbon Dioxide BUN 25 H Creatinine 1.5 H Glucose 103 H POC Glucose 121 H 144 H Lactic Acid Calcium Phosphorus Magnesium Direct Bilirubin AST ALT Alkaline Phosphatase Lactate Dehydrogenase Troponin T C-Reactive Protein Total Protein Albumin Prealbumin Triglycerides Cholesterol LDL Cholesterol Direct HDL Cholesterol Urine pH Urine WBC (Auto) Urine Creatinine Urine Total Protein Fluid Total Protein Vancomycin Trough Rheumatoid Factor Complement C4 Miscellaneous Test Crossmatch 11/15/16 11/15/16 11/16/16 21:28 23:20 11:44 WBC RBC Hgb Hct MCV MCH MCHC RDW Plt Count Lymph % (Auto) Stone % (Auto) Lymph # Stone # Baso # Seg Neutrophils % Seg Neuts % (Manual) Lymphocytes % (Manual) Monocytes % (Manual) Eosinophils % (Manual) Basophils % (Manual) Nucleated RBC % Seg Neutrophils # Seg Neutrophils # Man Lymphocytes # (Manual) Monocytes # (Manual) Eosinophils # (Manual) PT INR Fibrinogen dRVVT Confirm Interp Factor V Activity POC ABG pH 7.462 H POC ABG pCO2 POC ABG pO2 71 L ABG pO2 ABG HCO3 ABG Hemoglobin Oxyhemoglobin Sodium Potassium Chloride Carbon Dioxide BUN Creatinine Glucose POC Glucose 116 H 133 H Lactic Acid Calcium Phosphorus Magnesium Direct Bilirubin AST ALT Alkaline Phosphatase Lactate Dehydrogenase Troponin T C-Reactive Protein Total Protein Albumin Prealbumin Triglycerides Cholesterol LDL Cholesterol Direct HDL Cholesterol Urine pH Urine WBC (Auto) Urine Creatinine Urine Total Protein Fluid Total Protein Vancomycin Trough Rheumatoid Factor Complement C4 Miscellaneous Test Crossmatch 11/16/16 11/16/16 11/16/16 12:20 17:05 23:35 WBC 11.7 H RBC 2.73 L Hgb 7.6 L Hct 23.7 L MCV MCH MCHC RDW 16.6 H Plt Count Lymph % (Auto) Stone % (Auto) Lymph # Stone # Baso # Seg Neutrophils % Seg Neuts % (Manual) Lymphocytes % (Manual) Monocytes % (Manual) Eosinophils % (Manual) Basophils % (Manual) Nucleated RBC % Seg Neutrophils # Seg Neutrophils # Man Lymphocytes # (Manual) Monocytes # (Manual) Eosinophils # (Manual) PT INR Fibrinogen dRVVT Confirm Interp Factor V Activity POC ABG pH POC ABG pCO2 POC ABG pO2 ABG pO2 ABG HCO3 ABG Hemoglobin Oxyhemoglobin Sodium Potassium Chloride Carbon Dioxide BUN Creatinine Glucose POC Glucose 154 H 125 H Lactic Acid Calcium Phosphorus Magnesium Direct Bilirubin AST ALT Alkaline Phosphatase Lactate Dehydrogenase Troponin T C-Reactive Protein Total Protein Albumin Prealbumin Triglycerides Cholesterol LDL Cholesterol Direct HDL Cholesterol Urine pH Urine WBC (Auto) Urine Creatinine Urine Total Protein Fluid Total Protein Vancomycin Trough Rheumatoid Factor Complement C4 Miscellaneous Test Crossmatch 11/17/16 11/17/16 11/17/16 03:20 03:20 03:20 WBC RBC 2.55 L Hgb 7.3 L Hct 21.9 L MCV MCH MCHC RDW 16.6 H Plt Count Lymph % (Auto) Stone % (Auto) 11.5 H Lymph # Stone # 1.1 H Baso # Seg Neutrophils % Seg Neuts % (Manual) Lymphocytes % (Manual) Monocytes % (Manual) Eosinophils % (Manual) Basophils % (Manual) Nucleated RBC % Seg Neutrophils # Seg Neutrophils # Man Lymphocytes # (Manual) Monocytes # (Manual) Eosinophils # (Manual) PT 16.8 H INR 1.37 H Fibrinogen dRVVT Confirm Interp Factor V Activity POC ABG pH POC ABG pCO2 POC ABG pO2 ABG pO2 ABG HCO3 ABG Hemoglobin Oxyhemoglobin Sodium Potassium 3.5 L Chloride Carbon Dioxide BUN 21 H Creatinine Glucose POC Glucose Lactic Acid Calcium 7.9 L Phosphorus Magnesium Direct Bilirubin AST ALT Alkaline Phosphatase Lactate Dehydrogenase Troponin T C-Reactive Protein Total Protein Albumin Prealbumin Triglycerides Cholesterol LDL Cholesterol Direct HDL Cholesterol Urine pH Urine WBC (Auto) Urine Creatinine Urine Total Protein Fluid Total Protein Vancomycin Trough Rheumatoid Factor Complement C4 Miscellaneous Test Crossmatch 11/17/16 11/17/16 11/17/16 06:34 11:21 21:22 WBC RBC Hgb Hct MCV MCH MCHC RDW Plt Count Lymph % (Auto) Stone % (Auto) Lymph # Stone # Baso # Seg Neutrophils % Seg Neuts % (Manual) Lymphocytes % (Manual) Monocytes % (Manual) Eosinophils % (Manual) Basophils % (Manual) Nucleated RBC % Seg Neutrophils # Seg Neutrophils # Man Lymphocytes # (Manual) Monocytes # (Manual) Eosinophils # (Manual) PT INR Fibrinogen dRVVT Confirm Interp Factor V Activity POC ABG pH 7.467 H POC ABG pCO2 POC ABG pO2 73 L ABG pO2 ABG HCO3 ABG Hemoglobin Oxyhemoglobin Sodium Potassium Chloride Carbon Dioxide BUN Creatinine Glucose POC Glucose 121 H 119 H Lactic Acid Calcium Phosphorus Magnesium Direct Bilirubin AST ALT Alkaline Phosphatase Lactate Dehydrogenase Troponin T C-Reactive Protein Total Protein Albumin Prealbumin Triglycerides Cholesterol LDL Cholesterol Direct HDL Cholesterol Urine pH Urine WBC (Auto) Urine Creatinine Urine Total Protein Fluid Total Protein Vancomycin Trough Rheumatoid Factor Complement C4 Miscellaneous Test Crossmatch 11/18/16 11/18/16 11/19/16 12:16 17:19 00:00 WBC RBC Hgb Hct MCV MCH MCHC RDW Plt Count Lymph % (Auto) Stone % (Auto) Lymph # Stone # Baso # Seg Neutrophils % Seg Neuts % (Manual) Lymphocytes % (Manual) Monocytes % (Manual) Eosinophils % (Manual) Basophils % (Manual) Nucleated RBC % Seg Neutrophils # Seg Neutrophils # Man Lymphocytes # (Manual) Monocytes # (Manual) Eosinophils # (Manual) PT INR Fibrinogen dRVVT Confirm Interp Factor V Activity POC ABG pH POC ABG pCO2 POC ABG pO2 ABG pO2 ABG HCO3 ABG Hemoglobin Oxyhemoglobin Sodium Potassium Chloride Carbon Dioxide BUN Creatinine Glucose POC Glucose 124 H 162 H 139 H Lactic Acid Calcium Phosphorus Magnesium Direct Bilirubin AST ALT Alkaline Phosphatase Lactate Dehydrogenase Troponin T C-Reactive Protein Total Protein Albumin Prealbumin Triglycerides Cholesterol LDL Cholesterol Direct HDL Cholesterol Urine pH Urine WBC (Auto) Urine Creatinine Urine Total Protein Fluid Total Protein Vancomycin Trough Rheumatoid Factor Complement C4 Miscellaneous Test Crossmatch 11/19/16 11/19/16 11/20/16 05:00 12:43 00:40 WBC RBC Hgb Hct MCV MCH MCHC RDW Plt Count Lymph % (Auto) Stone % (Auto) Lymph # Stone # Baso # Seg Neutrophils % Seg Neuts % (Manual) Lymphocytes % (Manual) Monocytes % (Manual) Eosinophils % (Manual) Basophils % (Manual) Nucleated RBC % Seg Neutrophils # Seg Neutrophils # Man Lymphocytes # (Manual) Monocytes # (Manual) Eosinophils # (Manual) PT INR Fibrinogen dRVVT Confirm Interp Factor V Activity POC ABG pH POC ABG pCO2 POC ABG pO2 ABG pO2 ABG HCO3 ABG Hemoglobin Oxyhemoglobin Sodium Potassium Chloride Carbon Dioxide BUN Creatinine Glucose POC Glucose 110 H 125 H 136 H Lactic Acid Calcium Phosphorus Magnesium Direct Bilirubin AST ALT Alkaline Phosphatase Lactate Dehydrogenase Troponin T C-Reactive Protein Total Protein Albumin Prealbumin Triglycerides Cholesterol LDL Cholesterol Direct HDL Cholesterol Urine pH Urine WBC (Auto) Urine Creatinine Urine Total Protein Fluid Total Protein Vancomycin Trough Rheumatoid Factor Complement C4 Miscellaneous Test Crossmatch 11/20/16 11/20/16 11/20/16 05:00 05:00 05:51 WBC 13.1 H RBC 2.74 L Hgb 7.7 L Hct 23.6 L MCV MCH MCHC RDW 16.9 H Plt Count Lymph % (Auto) Stone % (Auto) 10.8 H Lymph # Stone # 1.4 H Baso # Seg Neutrophils % Seg Neuts % (Manual) Lymphocytes % (Manual) Monocytes % (Manual) Eosinophils % (Manual) Basophils % (Manual) Nucleated RBC % Seg Neutrophils # 7.9 H Seg Neutrophils # Man Lymphocytes # (Manual) Monocytes # (Manual) Eosinophils # (Manual) PT INR Fibrinogen dRVVT Confirm Interp Factor V Activity POC ABG pH POC ABG pCO2 POC ABG pO2 ABG pO2 ABG HCO3 ABG Hemoglobin Oxyhemoglobin Sodium Potassium Chloride Carbon Dioxide BUN 31 H Creatinine 1.8 H Glucose 129 H POC Glucose 133 H Lactic Acid Calcium Phosphorus Magnesium Direct Bilirubin AST ALT Alkaline Phosphatase Lactate Dehydrogenase Troponin T C-Reactive Protein Total Protein Albumin Prealbumin Triglycerides Cholesterol LDL Cholesterol Direct HDL Cholesterol Urine pH Urine WBC (Auto) Urine Creatinine Urine Total Protein Fluid Total Protein Vancomycin Trough Rheumatoid Factor Complement C4 Miscellaneous Test Crossmatch 11/20/16 11/20/16 11/21/16 12:40 18:10 01:20 WBC RBC Hgb Hct MCV MCH MCHC RDW Plt Count Lymph % (Auto) Stone % (Auto) Lymph # Stone # Baso # Seg Neutrophils % Seg Neuts % (Manual) Lymphocytes % (Manual) Monocytes % (Manual) Eosinophils % (Manual) Basophils % (Manual) Nucleated RBC % Seg Neutrophils # Seg Neutrophils # Man Lymphocytes # (Manual) Monocytes # (Manual) Eosinophils # (Manual) PT INR Fibrinogen dRVVT Confirm Interp Factor V Activity POC ABG pH POC ABG pCO2 POC ABG pO2 ABG pO2 ABG HCO3 ABG Hemoglobin Oxyhemoglobin Sodium Potassium Chloride Carbon Dioxide BUN Creatinine Glucose POC Glucose 134 H 138 H 136 H Lactic Acid Calcium Phosphorus Magnesium Direct Bilirubin AST ALT Alkaline Phosphatase Lactate Dehydrogenase Troponin T C-Reactive Protein Total Protein Albumin Prealbumin Triglycerides Cholesterol LDL Cholesterol Direct HDL Cholesterol Urine pH Urine WBC (Auto) Urine Creatinine Urine Total Protein Fluid Total Protein Vancomycin Trough Rheumatoid Factor Complement C4 Miscellaneous Test Crossmatch 11/21/16 11/21/16 11/21/16 07:04 07:45 07:45 WBC 22.0 H RBC 2.91 L Hgb 8.2 L Hct 25.4 L MCV MCH MCHC RDW 17.1 H Plt Count Lymph % (Auto) Stone % (Auto) Lymph # Stone # Baso # Seg Neutrophils % Seg Neuts % (Manual) Lymphocytes % (Manual) 8.0 L Monocytes % (Manual) Eosinophils % (Manual) Basophils % (Manual) Nucleated RBC % Seg Neutrophils # Seg Neutrophils # Man 14.7 H Lymphocytes # (Manual) Monocytes # (Manual) 1.1 H Eosinophils # (Manual) PT INR Fibrinogen dRVVT Confirm Interp Factor V Activity POC ABG pH POC ABG pCO2 POC ABG pO2 ABG pO2 ABG HCO3 ABG Hemoglobin Oxyhemoglobin Sodium Potassium Chloride Carbon Dioxide BUN 42 H Creatinine 2.0 H Glucose POC Glucose 108 H Lactic Acid Calcium Phosphorus Magnesium Direct Bilirubin AST ALT Alkaline Phosphatase Lactate Dehydrogenase Troponin T C-Reactive Protein Total Protein Albumin Prealbumin Triglycerides Cholesterol LDL Cholesterol Direct HDL Cholesterol Urine pH Urine WBC (Auto) Urine Creatinine Urine Total Protein Fluid Total Protein Vancomycin Trough Rheumatoid Factor Complement C4 Miscellaneous Test Crossmatch 11/21/16 11/21/16 11/21/16 08:38 10:09 11:20 WBC RBC Hgb Hct MCV MCH MCHC RDW Plt Count Lymph % (Auto) Stone % (Auto) Lymph # Stone # Baso # Seg Neutrophils % Seg Neuts % (Manual) Lymphocytes % (Manual) Monocytes % (Manual) Eosinophils % (Manual) Basophils % (Manual) Nucleated RBC % Seg Neutrophils # Seg Neutrophils # Man Lymphocytes # (Manual) Monocytes # (Manual) Eosinophils # (Manual) PT INR Fibrinogen dRVVT Confirm Interp Factor V Activity POC ABG pH 7.346 L POC ABG pCO2 34.4 L POC ABG pO2 314 H ABG pO2 ABG HCO3 ABG Hemoglobin Oxyhemoglobin Sodium Potassium Chloride Carbon Dioxide BUN Creatinine Glucose POC Glucose 195 H 153 H Lactic Acid Calcium Phosphorus Magnesium Direct Bilirubin AST ALT Alkaline Phosphatase Lactate Dehydrogenase Troponin T C-Reactive Protein Total Protein Albumin Prealbumin Triglycerides Cholesterol LDL Cholesterol Direct HDL Cholesterol Urine pH Urine WBC (Auto) Urine Creatinine Urine Total Protein Fluid Total Protein Vancomycin Trough Rheumatoid Factor Complement C4 Miscellaneous Test Crossmatch 11/21/16 11/22/16 11/22/16 23:37 04:48 05:00 WBC 29.7 H RBC 2.73 L Hgb 7.5 L Hct 24.2 L MCV MCH 27 L MCHC RDW 17.4 H Plt Count Lymph % (Auto) Stone % (Auto) Lymph # Stone # Baso # Seg Neutrophils % Seg Neuts % (Manual) Lymphocytes % (Manual) 7.0 L Monocytes % (Manual) Eosinophils % (Manual) Basophils % (Manual) Nucleated RBC % Seg Neutrophils # Seg Neutrophils # Man 15.4 H Lymphocytes # (Manual) Monocytes # (Manual) Eosinophils # (Manual) PT INR Fibrinogen dRVVT Confirm Interp Factor V Activity POC ABG pH POC ABG pCO2 24.6 L POC ABG pO2 189 H ABG pO2 ABG HCO3 ABG Hemoglobin Oxyhemoglobin Sodium Potassium Chloride Carbon Dioxide BUN Creatinine Glucose POC Glucose 65 L Lactic Acid Calcium Phosphorus Magnesium Direct Bilirubin AST ALT Alkaline Phosphatase Lactate Dehydrogenase Troponin T C-Reactive Protein Total Protein Albumin Prealbumin Triglycerides Cholesterol LDL Cholesterol Direct HDL Cholesterol Urine pH Urine WBC (Auto) Urine Creatinine Urine Total Protein Fluid Total Protein Vancomycin Trough Rheumatoid Factor Complement C4 Miscellaneous Test Crossmatch 11/22/16 11/23/16 11/23/16 05:00 03:44 04:06 WBC RBC 2.52 L Hgb 7.2 L Hct 21.5 L MCV MCH MCHC RDW 17.1 H Plt Count Lymph % (Auto) Stone % (Auto) 12.4 H Lymph # Stone # 1.4 H Baso # Seg Neutrophils % Seg Neuts % (Manual) Lymphocytes % (Manual) Monocytes % (Manual) Eosinophils % (Manual) Basophils % (Manual) Nucleated RBC % Seg Neutrophils # Seg Neutrophils # Man Lymphocytes # (Manual) Monocytes # (Manual) Eosinophils # (Manual) PT INR Fibrinogen dRVVT Confirm Interp Factor V Activity POC ABG pH 7.493 H POC ABG pCO2 29.5 L POC ABG pO2 49 L ABG pO2 ABG HCO3 ABG Hemoglobin Oxyhemoglobin Sodium 134 L Potassium Chloride 95.9 L Carbon Dioxide 14 L D BUN 51 H Creatinine 2.6 H Glucose POC Glucose Lactic Acid Calcium Phosphorus Magnesium Direct Bilirubin AST ALT Alkaline Phosphatase Lactate Dehydrogenase Troponin T C-Reactive Protein Total Protein Albumin Prealbumin Triglycerides Cholesterol LDL Cholesterol Direct HDL Cholesterol Urine pH Urine WBC (Auto) Urine Creatinine Urine Total Protein Fluid Total Protein Vancomycin Trough Rheumatoid Factor Complement C4 Miscellaneous Test Crossmatch 11/23/16 11/23/16 11/24/16 04:06 11:29 06:39 WBC RBC Hgb Hct MCV MCH MCHC RDW Plt Count Lymph % (Auto) Stone % (Auto) Lymph # Stone # Baso # Seg Neutrophils % Seg Neuts % (Manual) Lymphocytes % (Manual) Monocytes % (Manual) Eosinophils % (Manual) Basophils % (Manual) Nucleated RBC % Seg Neutrophils # Seg Neutrophils # Man Lymphocytes # (Manual) Monocytes # (Manual) Eosinophils # (Manual) PT INR Fibrinogen dRVVT Confirm Interp Factor V Activity POC ABG pH POC ABG pCO2 POC ABG pO2 ABG pO2 ABG HCO3 ABG Hemoglobin Oxyhemoglobin Sodium 136 L Potassium Chloride 95.2 L Carbon Dioxide BUN 60 H Creatinine 2.9 H Glucose POC Glucose 69 L 305 H Lactic Acid Calcium Phosphorus Magnesium 1.60 L Direct Bilirubin AST ALT Alkaline Phosphatase Lactate Dehydrogenase Troponin T C-Reactive Protein Total Protein Albumin Prealbumin Triglycerides Cholesterol LDL Cholesterol Direct HDL Cholesterol Urine pH Urine WBC (Auto) Urine Creatinine Urine Total Protein Fluid Total Protein Vancomycin Trough Rheumatoid Factor Complement C4 Miscellaneous Test Crossmatch 11/24/16 11/24/16 11/24/16 06:43 08:08 08:08 WBC 11.2 H RBC 2.47 L Hgb 6.8 L Hct 20.6 L MCV MCH MCHC RDW 17.0 H Plt Count Lymph % (Auto) Stone % (Auto) 10.3 H Lymph # Stone # 1.2 H Baso # Seg Neutrophils % Seg Neuts % (Manual) Lymphocytes % (Manual) Monocytes % (Manual) Eosinophils % (Manual) Basophils % (Manual) Nucleated RBC % Seg Neutrophils # Seg Neutrophils # Man Lymphocytes # (Manual) Monocytes # (Manual) Eosinophils # (Manual) PT INR Fibrinogen dRVVT Confirm Interp Factor V Activity POC ABG pH POC ABG pCO2 POC ABG pO2 ABG pO2 ABG HCO3 ABG Hemoglobin Oxyhemoglobin Sodium 135 L Potassium Chloride 96.3 L Carbon Dioxide BUN 61 H Creatinine 3.1 H Glucose POC Glucose 62 L Lactic Acid Calcium 8.2 L Phosphorus Magnesium Direct Bilirubin AST ALT Alkaline Phosphatase Lactate Dehydrogenase Troponin T C-Reactive Protein Total Protein Albumin Prealbumin Triglycerides Cholesterol LDL Cholesterol Direct HDL Cholesterol Urine pH Urine WBC (Auto) Urine Creatinine Urine Total Protein Fluid Total Protein Vancomycin Trough Rheumatoid Factor Complement C4 Miscellaneous Test Crossmatch 11/24/16 11/24/16 11/24/16 08:34 11:20 12:41 WBC RBC Hgb Hct MCV MCH MCHC RDW Plt Count Lymph % (Auto) Stone % (Auto) Lymph # Stone # Baso # Seg Neutrophils % Seg Neuts % (Manual) Lymphocytes % (Manual) Monocytes % (Manual) Eosinophils % (Manual) Basophils % (Manual) Nucleated RBC % Seg Neutrophils # Seg Neutrophils # Man Lymphocytes # (Manual) Monocytes # (Manual) Eosinophils # (Manual) PT INR Fibrinogen dRVVT Confirm Interp Factor V Activity POC ABG pH POC ABG pCO2 POC ABG pO2 ABG pO2 ABG HCO3 ABG Hemoglobin Oxyhemoglobin Sodium Potassium Chloride Carbon Dioxide BUN Creatinine Glucose POC Glucose 108 H Lactic Acid Calcium Phosphorus Magnesium 1.60 L Direct Bilirubin AST ALT Alkaline Phosphatase Lactate Dehydrogenase Troponin T C-Reactive Protein Total Protein Albumin Prealbumin Triglycerides Cholesterol LDL Cholesterol Direct HDL Cholesterol Urine pH Urine WBC (Auto) Urine Creatinine Urine Total Protein Fluid Total Protein Vancomycin Trough Rheumatoid Factor Complement C4 Miscellaneous Test Crossmatch See Detail 11/25/16 11/25/16 11/25/16 00:03 04:42 04:42 WBC RBC 3.03 L Hgb 8.6 L Hct 25.3 L MCV MCH MCHC RDW 16.2 H Plt Count Lymph % (Auto) Stone % (Auto) 8.1 H Lymph # Stone # Baso # Seg Neutrophils % 71.3 H Seg Neuts % (Manual) Lymphocytes % (Manual) Monocytes % (Manual) Eosinophils % (Manual) Basophils % (Manual) Nucleated RBC % Seg Neutrophils # Seg Neutrophils # Man Lymphocytes # (Manual) Monocytes # (Manual) Eosinophils # (Manual) PT INR Fibrinogen dRVVT Confirm Interp Factor V Activity POC ABG pH POC ABG pCO2 POC ABG pO2 ABG pO2 ABG HCO3 ABG Hemoglobin Oxyhemoglobin Sodium Potassium Chloride Carbon Dioxide BUN 61 H Creatinine 3.0 H Glucose 102 H POC Glucose 113 H Lactic Acid Calcium 8.2 L Phosphorus Magnesium Direct Bilirubin AST ALT Alkaline Phosphatase 142 H Lactate Dehydrogenase Troponin T C-Reactive Protein Total Protein 5.7 L Albumin 1.5 L Prealbumin Triglycerides Cholesterol LDL Cholesterol Direct HDL Cholesterol Urine pH Urine WBC (Auto) Urine Creatinine Urine Total Protein Fluid Total Protein Vancomycin Trough Rheumatoid Factor Complement C4 Miscellaneous Test Crossmatch 11/25/16 11/25/16 11/25/16 05:12 11:31 14:12 WBC RBC Hgb Hct MCV MCH MCHC RDW Plt Count Lymph % (Auto) Stone % (Auto) Lymph # Stone # Baso # Seg Neutrophils % Seg Neuts % (Manual) Lymphocytes % (Manual) Monocytes % (Manual) Eosinophils % (Manual) Basophils % (Manual) Nucleated RBC % Seg Neutrophils # Seg Neutrophils # Man Lymphocytes # (Manual) Monocytes # (Manual) Eosinophils # (Manual) PT INR Fibrinogen dRVVT Confirm Interp Factor V Activity POC ABG pH 7.487 H POC ABG pCO2 POC ABG pO2 153 H ABG pO2 ABG HCO3 ABG Hemoglobin Oxyhemoglobin Sodium Potassium Chloride Carbon Dioxide BUN Creatinine Glucose POC Glucose 131 H 140 H Lactic Acid Calcium Phosphorus Magnesium Direct Bilirubin AST ALT Alkaline Phosphatase Lactate Dehydrogenase Troponin T C-Reactive Protein Total Protein Albumin Prealbumin Triglycerides Cholesterol LDL Cholesterol Direct HDL Cholesterol Urine pH Urine WBC (Auto) Urine Creatinine Urine Total Protein Fluid Total Protein Vancomycin Trough Rheumatoid Factor Complement C4 Miscellaneous Test Crossmatch 11/25/16 11/26/16 11/26/16 17:23 00:09 05:13 WBC RBC 2.94 L Hgb 8.4 L Hct 24.6 L MCV MCH MCHC RDW 16.4 H Plt Count Lymph % (Auto) Stone % (Auto) 12.3 H Lymph # Stone # 1.1 H Baso # Seg Neutrophils % Seg Neuts % (Manual) Lymphocytes % (Manual) Monocytes % (Manual) Eosinophils % (Manual) Basophils % (Manual) Nucleated RBC % Seg Neutrophils # Seg Neutrophils # Man Lymphocytes # (Manual) Monocytes # (Manual) Eosinophils # (Manual) PT INR Fibrinogen dRVVT Confirm Interp Factor V Activity POC ABG pH POC ABG pCO2 POC ABG pO2 ABG pO2 ABG HCO3 ABG Hemoglobin Oxyhemoglobin Sodium Potassium Chloride Carbon Dioxide BUN Creatinine Glucose POC Glucose 146 H 112 H Lactic Acid Calcium Phosphorus Magnesium Direct Bilirubin AST ALT Alkaline Phosphatase Lactate Dehydrogenase Troponin T C-Reactive Protein Total Protein Albumin Prealbumin Triglycerides Cholesterol LDL Cholesterol Direct HDL Cholesterol Urine pH Urine WBC (Auto) Urine Creatinine Urine Total Protein Fluid Total Protein Vancomycin Trough Rheumatoid Factor Complement C4 Miscellaneous Test Crossmatch 11/26/16 11/26/16 11/26/16 05:13 05:28 11:53 WBC RBC Hgb Hct MCV MCH MCHC RDW Plt Count Lymph % (Auto) Stone % (Auto) Lymph # Stone # Baso # Seg Neutrophils % Seg Neuts % (Manual) Lymphocytes % (Manual) Monocytes % (Manual) Eosinophils % (Manual) Basophils % (Manual) Nucleated RBC % Seg Neutrophils # Seg Neutrophils # Man Lymphocytes # (Manual) Monocytes # (Manual) Eosinophils # (Manual) PT INR Fibrinogen dRVVT Confirm Interp Factor V Activity POC ABG pH POC ABG pCO2 POC ABG pO2 ABG pO2 ABG HCO3 ABG Hemoglobin Oxyhemoglobin Sodium Potassium Chloride 97.8 L Carbon Dioxide BUN 37 H Creatinine 2.0 H Glucose 109 H POC Glucose 117 H 111 H Lactic Acid Calcium 7.9 L Phosphorus 1.80 L D Magnesium Direct Bilirubin AST ALT Alkaline Phosphatase Lactate Dehydrogenase Troponin T C-Reactive Protein Total Protein Albumin Prealbumin Triglycerides Cholesterol LDL Cholesterol Direct HDL Cholesterol Urine pH Urine WBC (Auto) Urine Creatinine Urine Total Protein Fluid Total Protein Vancomycin Trough Rheumatoid Factor Complement C4 Miscellaneous Test Crossmatch 11/26/16 11/27/16 11/27/16 17:14 04:50 06:02 WBC RBC Hgb Hct MCV MCH MCHC RDW Plt Count Lymph % (Auto) Stone % (Auto) Lymph # Stone # Baso # Seg Neutrophils % Seg Neuts % (Manual) Lymphocytes % (Manual) Monocytes % (Manual) Eosinophils % (Manual) Basophils % (Manual) Nucleated RBC % Seg Neutrophils # Seg Neutrophils # Man Lymphocytes # (Manual) Monocytes # (Manual) Eosinophils # (Manual) PT INR Fibrinogen dRVVT Confirm Interp Factor V Activity POC ABG pH POC ABG pCO2 POC ABG pO2 ABG pO2 75.2 L ABG HCO3 26.4 H ABG Hemoglobin 7.6 L Oxyhemoglobin 94.8 L Sodium Potassium Chloride Carbon Dioxide BUN 49 H Creatinine 2.3 H Glucose POC Glucose 115 H Lactic Acid Calcium Phosphorus 1.50 L Magnesium Direct Bilirubin AST ALT Alkaline Phosphatase Lactate Dehydrogenase Troponin T C-Reactive Protein Total Protein Albumin Prealbumin Triglycerides Cholesterol LDL Cholesterol Direct HDL Cholesterol Urine pH Urine WBC (Auto) Urine Creatinine Urine Total Protein Fluid Total Protein Vancomycin Trough Rheumatoid Factor Complement C4 Miscellaneous Test Crossmatch 11/27/16 11/27/16 11/27/16 06:02 11:25 17:25 WBC 11.6 H RBC 2.75 L Hgb 7.6 L Hct 23.4 L MCV MCH MCHC RDW 16.5 H Plt Count Lymph % (Auto) Stone % (Auto) Lymph # Stone # Baso # Seg Neutrophils % Seg Neuts % (Manual) Lymphocytes % (Manual) Monocytes % (Manual) Eosinophils % (Manual) Basophils % (Manual) Nucleated RBC % Seg Neutrophils # Seg Neutrophils # Man Lymphocytes # (Manual) Monocytes # (Manual) Eosinophils # (Manual) PT INR Fibrinogen dRVVT Confirm Interp Factor V Activity POC ABG pH POC ABG pCO2 POC ABG pO2 ABG pO2 ABG HCO3 ABG Hemoglobin Oxyhemoglobin Sodium Potassium Chloride Carbon Dioxide BUN Creatinine Glucose POC Glucose 114 H 126 H Lactic Acid Calcium Phosphorus Magnesium Direct Bilirubin AST ALT Alkaline Phosphatase Lactate Dehydrogenase Troponin T C-Reactive Protein Total Protein Albumin Prealbumin Triglycerides Cholesterol LDL Cholesterol Direct HDL Cholesterol Urine pH Urine WBC (Auto) Urine Creatinine Urine Total Protein Fluid Total Protein Vancomycin Trough Rheumatoid Factor Complement C4 Miscellaneous Test Crossmatch 11/28/16 11/28/16 11/28/16 04:45 05:33 05:44 WBC RBC Hgb Hct MCV MCH MCHC RDW Plt Count Lymph % (Auto) Stone % (Auto) Lymph # Stone # Baso # Seg Neutrophils % Seg Neuts % (Manual) Lymphocytes % (Manual) Monocytes % (Manual) Eosinophils % (Manual) Basophils % (Manual) Nucleated RBC % Seg Neutrophils # Seg Neutrophils # Man Lymphocytes # (Manual) Monocytes # (Manual) Eosinophils # (Manual) PT INR Fibrinogen dRVVT Confirm Interp Factor V Activity POC ABG pH POC ABG pCO2 POC ABG pO2 ABG pO2 99.3 H ABG HCO3 ABG Hemoglobin 8.3 L Oxyhemoglobin Sodium Potassium Chloride Carbon Dioxide BUN 63 H Creatinine 2.4 H Glucose 102 H POC Glucose 108 H Lactic Acid Calcium Phosphorus 1.80 L Magnesium Direct Bilirubin AST ALT Alkaline Phosphatase Lactate Dehydrogenase Troponin T C-Reactive Protein Total Protein Albumin Prealbumin Triglycerides Cholesterol LDL Cholesterol Direct HDL Cholesterol Urine pH Urine WBC (Auto) Urine Creatinine Urine Total Protein Fluid Total Protein Vancomycin Trough Rheumatoid Factor Complement C4 Miscellaneous Test Crossmatch 11/28/16 11/28/16 11/28/16 12:31 16:09 23:46 WBC RBC Hgb Hct MCV MCH MCHC RDW Plt Count Lymph % (Auto) Stone % (Auto) Lymph # Stone # Baso # Seg Neutrophils % Seg Neuts % (Manual) Lymphocytes % (Manual) Monocytes % (Manual) Eosinophils % (Manual) Basophils % (Manual) Nucleated RBC % Seg Neutrophils # Seg Neutrophils # Man Lymphocytes # (Manual) Monocytes # (Manual) Eosinophils # (Manual) PT INR Fibrinogen dRVVT Confirm Interp Factor V Activity POC ABG pH POC ABG pCO2 POC ABG pO2 ABG pO2 ABG HCO3 ABG Hemoglobin Oxyhemoglobin Sodium Potassium Chloride Carbon Dioxide BUN Creatinine Glucose POC Glucose 126 H 111 H 119 H Lactic Acid Calcium Phosphorus Magnesium Direct Bilirubin AST ALT Alkaline Phosphatase Lactate Dehydrogenase Troponin T C-Reactive Protein Total Protein Albumin Prealbumin Triglycerides Cholesterol LDL Cholesterol Direct HDL Cholesterol Urine pH Urine WBC (Auto) Urine Creatinine Urine Total Protein Fluid Total Protein Vancomycin Trough Rheumatoid Factor Complement C4 Miscellaneous Test Crossmatch 11/29/16 11/29/16 11/29/16 03:33 04:52 05:10 WBC RBC Hgb Hct MCV MCH MCHC RDW Plt Count Lymph % (Auto) Stone % (Auto) Lymph # Stone # Baso # Seg Neutrophils % Seg Neuts % (Manual) Lymphocytes % (Manual) Monocytes % (Manual) Eosinophils % (Manual) Basophils % (Manual) Nucleated RBC % Seg Neutrophils # Seg Neutrophils # Man Lymphocytes # (Manual) Monocytes # (Manual) Eosinophils # (Manual) PT INR Fibrinogen dRVVT Confirm Interp Factor V Activity POC ABG pH POC ABG pCO2 POC ABG pO2 ABG pO2 ABG HCO3 ABG Hemoglobin 7.0 L Oxyhemoglobin 94.9 L Sodium Potassium Chloride Carbon Dioxide BUN 73 H Creatinine 2.7 H Glucose POC Glucose 108 H Lactic Acid Calcium Phosphorus Magnesium Direct Bilirubin AST ALT Alkaline Phosphatase Lactate Dehydrogenase Troponin T C-Reactive Protein Total Protein Albumin Prealbumin Triglycerides Cholesterol LDL Cholesterol Direct HDL Cholesterol Urine pH Urine WBC (Auto) Urine Creatinine Urine Total Protein Fluid Total Protein Vancomycin Trough Rheumatoid Factor Complement C4 Miscellaneous Test Crossmatch 11/29/16 11/29/16 11/29/16 12:16 18:05 23:46 WBC RBC Hgb Hct MCV MCH MCHC RDW Plt Count Lymph % (Auto) Stone % (Auto) Lymph # Stone # Baso # Seg Neutrophils % Seg Neuts % (Manual) Lymphocytes % (Manual) Monocytes % (Manual) Eosinophils % (Manual) Basophils % (Manual) Nucleated RBC % Seg Neutrophils # Seg Neutrophils # Man Lymphocytes # (Manual) Monocytes # (Manual) Eosinophils # (Manual) PT INR Fibrinogen dRVVT Confirm Interp Factor V Activity POC ABG pH POC ABG pCO2 POC ABG pO2 ABG pO2 ABG HCO3 ABG Hemoglobin Oxyhemoglobin Sodium Potassium Chloride Carbon Dioxide BUN Creatinine Glucose POC Glucose 133 H 146 H 141 H Lactic Acid Calcium Phosphorus Magnesium Direct Bilirubin AST ALT Alkaline Phosphatase Lactate Dehydrogenase Troponin T C-Reactive Protein Total Protein Albumin Prealbumin Triglycerides Cholesterol LDL Cholesterol Direct HDL Cholesterol Urine pH Urine WBC (Auto) Urine Creatinine Urine Total Protein Fluid Total Protein Vancomycin Trough Rheumatoid Factor Complement C4 Miscellaneous Test Crossmatch 11/30/16 11/30/16 11/30/16 04:17 04:17 04:32 WBC 12.0 H RBC 2.80 L Hgb 7.8 L Hct 23.6 L MCV MCH MCHC RDW 16.6 H Plt Count Lymph % (Auto) Stone % (Auto) 11.3 H Lymph # Stone # 1.4 H Baso # Seg Neutrophils % Seg Neuts % (Manual) Lymphocytes % (Manual) Monocytes % (Manual) Eosinophils % (Manual) Basophils % (Manual) Nucleated RBC % Seg Neutrophils # 8.2 H Seg Neutrophils # Man Lymphocytes # (Manual) Monocytes # (Manual) Eosinophils # (Manual) PT INR Fibrinogen dRVVT Confirm Interp Factor V Activity POC ABG pH POC ABG pCO2 POC ABG pO2 ABG pO2 ABG HCO3 ABG Hemoglobin Oxyhemoglobin Sodium 169 H* D Potassium 5.1 H Chloride 121.5 H Carbon Dioxide BUN 34 H Creatinine 1.3 H D Glucose 133 H POC Glucose 131 H Lactic Acid Calcium 10.3 H Phosphorus Magnesium Direct Bilirubin AST ALT Alkaline Phosphatase Lactate Dehydrogenase Troponin T C-Reactive Protein Total Protein Albumin Prealbumin Triglycerides Cholesterol LDL Cholesterol Direct HDL Cholesterol Urine pH Urine WBC (Auto) Urine Creatinine Urine Total Protein Fluid Total Protein Vancomycin Trough Rheumatoid Factor Complement C4 Miscellaneous Test Crossmatch 11/30/16 11/30/16 11/30/16 05:45 11:10 17:26 WBC RBC Hgb Hct MCV MCH MCHC RDW Plt Count Lymph % (Auto) Stone % (Auto) Lymph # Stone # Baso # Seg Neutrophils % Seg Neuts % (Manual) Lymphocytes % (Manual) Monocytes % (Manual) Eosinophils % (Manual) Basophils % (Manual) Nucleated RBC % Seg Neutrophils # Seg Neutrophils # Man Lymphocytes # (Manual) Monocytes # (Manual) Eosinophils # (Manual) PT INR Fibrinogen dRVVT Confirm Interp Factor V Activity POC ABG pH POC ABG pCO2 POC ABG pO2 ABG pO2 ABG HCO3 ABG Hemoglobin Oxyhemoglobin Sodium Potassium Chloride Carbon Dioxide BUN 45 H Creatinine 1.6 H Glucose 131 H POC Glucose 146 H 134 H Lactic Acid Calcium Phosphorus Magnesium Direct Bilirubin AST ALT Alkaline Phosphatase Lactate Dehydrogenase Troponin T C-Reactive Protein Total Protein Albumin Prealbumin Triglycerides Cholesterol LDL Cholesterol Direct HDL Cholesterol Urine pH Urine WBC (Auto) Urine Creatinine Urine Total Protein Fluid Total Protein Vancomycin Trough Rheumatoid Factor Complement C4 Miscellaneous Test Crossmatch 11/30/16 12/01/16 12/01/16 23:35 00:06 03:35 WBC RBC Hgb Hct MCV MCH MCHC RDW Plt Count Lymph % (Auto) Stone % (Auto) Lymph # Stone # Baso # Seg Neutrophils % Seg Neuts % (Manual) Lymphocytes % (Manual) Monocytes % (Manual) Eosinophils % (Manual) Basophils % (Manual) Nucleated RBC % Seg Neutrophils # Seg Neutrophils # Man Lymphocytes # (Manual) Monocytes # (Manual) Eosinophils # (Manual) PT INR Fibrinogen dRVVT Confirm Interp Factor V Activity POC ABG pH POC ABG pCO2 POC ABG pO2 ABG pO2 ABG HCO3 ABG Hemoglobin 6.9 L Oxyhemoglobin Sodium Potassium Chloride Carbon Dioxide BUN 58 H Creatinine 1.8 H Glucose 146 H POC Glucose 151 H Lactic Acid Calcium Phosphorus Magnesium Direct Bilirubin AST ALT Alkaline Phosphatase Lactate Dehydrogenase Troponin T C-Reactive Protein Total Protein Albumin Prealbumin Triglycerides Cholesterol LDL Cholesterol Direct HDL Cholesterol Urine pH Urine WBC (Auto) Urine Creatinine Urine Total Protein Fluid Total Protein Vancomycin Trough Rheumatoid Factor Complement C4 Miscellaneous Test Crossmatch 12/01/16 12/01/16 12/01/16 03:35 05:47 11:52 WBC 12.3 H RBC 2.82 L Hgb 7.8 L Hct 23.7 L MCV MCH MCHC RDW 16.7 H Plt Count Lymph % (Auto) Stone % (Auto) 9.8 H Lymph # Stone # 1.2 H Baso # Seg Neutrophils % Seg Neuts % (Manual) Lymphocytes % (Manual) Monocytes % (Manual) Eosinophils % (Manual) Basophils % (Manual) Nucleated RBC % Seg Neutrophils # 8.4 H Seg Neutrophils # Man Lymphocytes # (Manual) Monocytes # (Manual) Eosinophils # (Manual) PT INR Fibrinogen dRVVT Confirm Interp Factor V Activity POC ABG pH POC ABG pCO2 POC ABG pO2 ABG pO2 ABG HCO3 ABG Hemoglobin Oxyhemoglobin Sodium Potassium Chloride Carbon Dioxide BUN Creatinine Glucose POC Glucose 152 H 152 H Lactic Acid Calcium Phosphorus Magnesium Direct Bilirubin AST ALT Alkaline Phosphatase Lactate Dehydrogenase Troponin T C-Reactive Protein Total Protein Albumin Prealbumin Triglycerides Cholesterol LDL Cholesterol Direct HDL Cholesterol Urine pH Urine WBC (Auto) Urine Creatinine Urine Total Protein Fluid Total Protein Vancomycin Trough Rheumatoid Factor Complement C4 Miscellaneous Test Crossmatch 12/01/16 12/01/16 12/02/16 17:40 23:41 05:00 WBC RBC Hgb Hct MCV MCH MCHC RDW Plt Count Lymph % (Auto) Stone % (Auto) Lymph # Stone # Baso # Seg Neutrophils % Seg Neuts % (Manual) Lymphocytes % (Manual) Monocytes % (Manual) Eosinophils % (Manual) Basophils % (Manual) Nucleated RBC % Seg Neutrophils # Seg Neutrophils # Man Lymphocytes # (Manual) Monocytes # (Manual) Eosinophils # (Manual) PT INR Fibrinogen dRVVT Confirm Interp Factor V Activity POC ABG pH POC ABG pCO2 POC ABG pO2 ABG pO2 ABG HCO3 ABG Hemoglobin Oxyhemoglobin Sodium Potassium Chloride Carbon Dioxide BUN 45 H Creatinine Glucose 115 H POC Glucose 140 H 144 H Lactic Acid Calcium Phosphorus Magnesium Direct Bilirubin AST ALT Alkaline Phosphatase Lactate Dehydrogenase Troponin T C-Reactive Protein Total Protein Albumin Prealbumin Triglycerides Cholesterol LDL Cholesterol Direct HDL Cholesterol Urine pH Urine WBC (Auto) Urine Creatinine Urine Total Protein Fluid Total Protein Vancomycin Trough Rheumatoid Factor Complement C4 Miscellaneous Test Crossmatch 12/02/16 12/02/16 05:31 11:20 WBC RBC Hgb Hct MCV MCH MCHC RDW Plt Count Lymph % (Auto) Stone % (Auto) Lymph # Stone # Baso # Seg Neutrophils % Seg Neuts % (Manual) Lymphocytes % (Manual) Monocytes % (Manual) Eosinophils % (Manual) Basophils % (Manual) Nucleated RBC % Seg Neutrophils # Seg Neutrophils # Man Lymphocytes # (Manual) Monocytes # (Manual) Eosinophils # (Manual) PT INR Fibrinogen dRVVT Confirm Interp Factor V Activity POC ABG pH POC ABG pCO2 POC ABG pO2 ABG pO2 ABG HCO3 ABG Hemoglobin Oxyhemoglobin Sodium Potassium Chloride Carbon Dioxide BUN Creatinine Glucose POC Glucose 136 H 177 H Lactic Acid Calcium Phosphorus Magnesium Direct Bilirubin AST ALT Alkaline Phosphatase Lactate Dehydrogenase Troponin T C-Reactive Protein Total Protein Albumin Prealbumin Triglycerides Cholesterol LDL Cholesterol Direct HDL Cholesterol Urine pH Urine WBC (Auto) Urine Creatinine Urine Total Protein Fluid Total Protein Vancomycin Trough Rheumatoid Factor Complement C4 Miscellaneous Test Crossmatch Chest x-ray: image reviewed (no newe infiltrate; trach tube in good position) Allied health notes reviewed: RT
--- NOTE | 2016-12-02 14:03 | Event Note ---
Date: 12/02/16 Fistulogram performed by myself at bedside. Gastroview diluted to 50% with water and a syringe was then used to push it into the perceived fistula, followed by a KUB. 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 Awaiting final radiology read regarding any other findings.
--- NOTE | 2016-12-02 14:40 | XRay Report ---
KUB: Fistulogram. Food contents via feeding tube exiting through entrance site of recently removed PEG tube. Injection of contrast was made by Dr. Virgen at bedside bedside through tract from removed PEG tube. There is contained contrast in a semilunar contour in the left upper quadrant above and lateral to the stomach as well as a more amorphous accumulation of contrast over the right abdomen and a possible smaller accumulation in the pelvis. A small crescent-shaped collection is noted in the midabdomen. A large amount contrast is noted in the stomach where there is a well-positioned feeding tube. There is no clearly identified tract connecting the stomach or peritoneum to the skin. Impressions: The findings suggest that the PEG tube tract still connects with the stomach primarily but there is communication from the stomach or the tract to the peritoneal space.
[2016-12-02] MEDS: TRANSDERM-SCOP TD SCH (15:06)
--- NOTE | 2016-12-02 15:10 | Progress Note ---
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 Objective - Vital Signs Vital signs: Vital Signs - 12hr 12/02/16 12/02/16 12/02/16 03:30 04:00 04:10 Temperature 99.0 F Pulse Rate 98 H 105 H Pulse Rate [ 104 H From Monitor] Respiratory 15 17 18 Rate Blood Pressure 153/82 175/79 O2 Sat by Pulse 100 98 Oximetry 12/02/16 12/02/16 12/02/16 04:31 05:01 06:03 Temperature Pulse Rate 97 H 104 H 113 H Pulse Rate [ From Monitor] Respiratory 26 H 21 Rate Blood Pressure 132/72 142/74 175/115 O2 Sat by Pulse Oximetry 12/02/16 12/02/16 12/02/16 06:15 07:01 07:31 Temperature Pulse Rate 116 H 105 H 104 H Pulse Rate [ From Monitor] Respiratory 26 H 29 H Rate Blood Pressure 179/114 157/98 159/95 O2 Sat by Pulse 99 99 Oximetry 12/02/16 12/02/16 12/02/16 07:49 08:01 08:31 Temperature 99.1 F Pulse Rate 108 H 109 H Pulse Rate [ From Monitor] Respiratory 29 H 31 H Rate Blood Pressure 161/87 157/97 O2 Sat by Pulse 98 99 Oximetry 12/02/16 12/02/16 12/02/16 08:32 09:01 09:24 Temperature Pulse Rate 111 H 114 H Pulse Rate [ From Monitor] Respiratory 26 H Rate Blood Pressure 144/87 144/87 O2 Sat by Pulse 99 98 Oximetry 12/02/16 12/02/16 12/02/16 09:31 10:00 10:31 Temperature Pulse Rate 116 H 115 H 119 H Pulse Rate [ From Monitor] Respiratory 27 H 35 H 31 H Rate Blood Pressure 121/94 148/96 121/94 O2 Sat by Pulse 98 98 98 Oximetry 12/02/16 12/02/16 12/02/16 11:00 11:30 11:49 Temperature Pulse Rate 121 H 118 H 120 H Pulse Rate [ From Monitor] Respiratory 32 H 31 H Rate Blood Pressure 157/103 125/86 122/89 O2 Sat by Pulse 94 95 Oximetry 12/02/16 12/02/16 12/02/16 12:00 12:30 13:01 Temperature 99.6 F Pulse Rate 118 H 114 H 105 H Pulse Rate [ From Monitor] Respiratory 31 H 32 H 32 H Rate Blood Pressure 142/82 127/68 136/67 O2 Sat by Pulse 95 97 97 Oximetry 12/02/16 12/02/16 12/02/16 13:30 14:01 14:31 Temperature Pulse Rate 111 H 114 H 115 H Pulse Rate [ From Monitor] Respiratory 32 H 23 34 H Rate Blood Pressure 134/82 122/73 134/80 O2 Sat by Pulse 94 93 93 Oximetry 12/02/16 12/02/16 15:01 15:04 Temperature Pulse Rate 112 H 109 H Pulse Rate [ From Monitor] Respiratory 33 H Rate Blood Pressure 133/70 133/70 O2 Sat by Pulse 90 Oximetry - General Appearance General appearance: well-developed, well-nourished, intubated EENT: ATNC Neck: other (trach ) Respiratory: Present: Other (coarse BS) Cardiology: regular, S1S2 Gastrointestinal: no distended Integumentary: warm and dry Musculoskeletal: other (1+ edema) - Lab 12/01/16 03:35 12/02/16 05:00 Most recent lab results ABG pH 7.436 pH Units (7.350-7.450) 11/30/16 23:35 ABG pCO2 38.0 mm Hg 11/30/16 23:35 ABG pO2 83.0 mm Hg (80.0-90.0) 11/30/16 23:35 ABG HCO3 25.0 mmol/L (20.0-26.0) 11/30/16 23:35 ABG O2 Saturation 96.9 % (95.0-99.0) 11/30/16 23:35 Calcium 8.4 mg/dL (8.4-10.2) 12/02/16 05:00 Phosphorus 3.40 mg/dL (2.5-4.5) D 12/02/16 05:00 Magnesium 1.80 mg/dL (1.7-2.3) 12/01/16 03:35 Urine Creatinine 19.7 mg/dL (0.1-20.0) 11/12/16 10:18 Urine Sodium 36 mEq/L 09/16/16 19:19 Urine Total Protein 16 mg/dL (5-11.8) H 09/16/16 19:19
[2016-12-02] MEDS ORDERED: TPN ADULT IV SCH (20:00)
--- NOTE | 2016-12-02 22:21 | Progress Note ---
Assessment and Plan Assessment and plan: Patient is 46-year-old woman with a history of hypertension, diabetes, asthma, hyperlipidemia, chronic kidney disease and anxiety , who was brought in by family because, she couldn't get her words out, her face was also twisted, she was admitted for acute CVA and accelerated hypertension, she had a hx of poor adherence with her medications, and uncontrolled htn. Patient's SBP on admission was noted be greater than 260. TPA was started but this was discontinued after 5 minutes because her blood pressure became uncontrolled. The TPA was not initiated again because the patient was outside the TPA window. Status post cardiac arrest , 11/21/16 - Received CPR and was resuscitated. Fever - resolved - Now on Vancomycin - s/p R thoracentesis on 11/14, 240cc of serous fluid removed, cx of fluid was negative - Stool negative for C. difficile Severe Sepsis with septic shock - Resolving Surgical wound infection/gram-negative sepsis/candidemia/peritonitis - PEG has been removed and pus is drained from the PEG site - Currently on tube feeding -continue wound care to ostomy sites JUANITA, ESRD - on HD per nephrology Acute CVA with infarct - Neurology input appreciated - CT shows continued evolution of left MCA infarct with slight mass effect and edema, and there is no hemorrhage - PRINCE showed hyperdynamic with ef of 75%, neither clot nor septal defect seen - MRA Brain shows near complete occlusion of M2 and M3 of the left MCA - Repeat CT scan done on 09/11, shows stable findings - carotid doppler negative - Echo shows preserved systolic function but does show some left ventricular diastolic dysfunction - continue asa and statin Persistent vegetative state - This patient's needs placement at SNF - She was denied for LTACH Acute hypoxic respiratory failure requiring MV >96hrs - Status post tracheostomy, was on T piece Nosocomial acquired aspiration pneumonia/sepsis/UTI - Recurrent - On vancomycin Asthma/COPD exacerbation - ON trach, mechanical ventilation Acute Toxic Metabolic encephalopathy. - Multitifactorial, mostly secondary to evolution of CVA Bilateral pleural effusion, s/p right thoracentesis 11/14 - fluid analysis cw transudate Paroxysmal atrial fibrillation with rapid ventricular rate and hyper-coaguable state - failed cardioversion - Continue current medications, Not a candidate for anticoagulation secondary to anemia, thrombocytopenia, and massive CVA Diabetes type 2. Continue sliding-scale regular insulin and Accu-Cheks. Hyperlipidemia. Continue statin Nutrition - continue tube feeds Anemia requiring multiple transfusions/acute blood loss - Has received total 14 units of PRBC this admission. Will continue to transfuse to keep Hemoglobin above 7 - Hemoglobin 7.8 Per the Geographic Information Scientist patient's were explained the disease situation yesterday by Dr Lopez and they refused hospice. Have been explained by the hospitalist group and the career coach about the poor prognosis of the patient but the family said she may made it and refused. Will talk to them at the end of the week. Disposition. Very poor prognosis. The high probability of a clinically significant, sudden or life threatening deterioration of the [neurologic, CV] system(s) required my full and direct attention, intervention and personal management. The aggregate critical care time was [34] minutes. This time is in addition to time spent performing reported procedures but includes the following: [x] Data Review and interpretation [x] Patient assessment and monitoring of vital signs [x] Documentation [x] Medication orders and management History Interval history: Patient was seen and evaluated this morning, patient is in persistent vegetative state. 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 I have discussed the management plan with her brother, still hopeful she will make out of it. Hospitalist Physical - Physical exam Narrative exam: Patient is on mechanical ventilation Vital signs as documented. Head exam is unremarkable. No scleral icterus . Neck is without jugular venous distension, thyromegaly, or carotid bruits. Lungs are clear to auscultation. Cardiac exam reveals regular rate and Rhythm. First and second heart sounds normal. No murmurs, rubs or gallops. Abdominal exam reveals abscess draining from the PEG site, and multiple fistulas around the stomach. Extremities are nonedematous and both femoral and pedal pulses are normal. 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: comatose - Constitutional Vitals: Temp Pulse Resp BP Pulse Ox 98.1 F 100 H 22 114/70 99 12/02/16 20:00 12/02/16 19:32 12/02/16 18:00 12/02/16 19:32 12/02/16 19:32 General appearance: Present: no acute distress Results - Labs CBC & Chem 7: 12/01/16 03:35 12/02/16 05:00 Labs: Laboratory Last Values WBC 12.3 K/mm3 (4.5-11.0) H 12/01/16 03:35 RBC 2.82 M/mm3 (3.65-5.03) L 12/01/16 03:35 Hgb 7.8 gm/dl (10.1-14.3) L 12/01/16 03:35 Hct 23.7 % (30.3-42.9) L 12/01/16 03:35 MCV 84 fl (79-97) 12/01/16 03:35 MCH 28 pg (28-32) 12/01/16 03:35 MCHC 33 % (30-34) 12/01/16 03:35 RDW 16.7 % (13.2-15.2) H 12/01/16 03:35 Plt Count 284 K/mm3 (140-440) 12/01/16 03:35 Lymph % (Auto) 19.6 % (13.4-35.0) 12/01/16 03:35 Isabella % (Auto) 9.8 % (0.0-7.3) H 12/01/16 03:35 Eos % (Auto) 1.5 % (0.0-4.3) 12/01/16 03:35 Baso % (Auto) 0.3 % (0.0-1.8) 12/01/16 03:35 Lymph # 2.4 K/mm3 (1.2-5.4) 12/01/16 03:35 Isabella # 1.2 K/mm3 (0.0-0.8) H 12/01/16 03:35 Eos # 0.2 K/mm3 (0.0-0.4) 12/01/16 03:35 Baso # 0.0 K/mm3 (0.0-0.1) 12/01/16 03:35 Add Manual Diff Complete 11/22/16 05:00 Total Counted 100 11/22/16 05:00 Seg Neutrophils % 68.8 % (40.0-70.0) 12/01/16 03:35 Seg Neuts % (Manual) 52.0 % (40.0-70.0) 11/22/16 05:00 Band Neutrophils % 37.0 % 11/22/16 05:00 Lymphocytes % (Manual) 7.0 % (13.4-35.0) L 11/22/16 05:00 Reactive Lymphs % (Man) 0 % 11/22/16 05:00 Monocytes % (Manual) 0 % (0.0-7.3) 11/22/16 05:00 Eosinophils % (Manual) 1.0 % (0.0-4.3) 11/22/16 05:00 Basophils % (Manual) 0 % (0.0-1.8) 11/21/16 07:45 Metamyelocytes % 1.0 % 11/22/16 05:00 Myelocytes % 2.0 % 11/22/16 05:00 Promyelocytes % 0 % 11/22/16 05:00 Blast Cells % 0 % 11/22/16 05:00 Nucleated RBC % Not Reportable 11/22/16 05:00 Seg Neutrophils # 8.4 K/mm3 (1.8-7.7) H 12/01/16 03:35 Seg Neutrophils # Man 15.4 K/mm3 (1.8-7.7) H 11/22/16 05:00 Band Neutrophils # 11.0 K/mm3 11/22/16 05:00 Lymphocytes # (Manual) 2.1 K/mm3 (1.2-5.4) 11/22/16 05:00 Abs React Lymphs (Man) 0.0 K/mm3 11/22/16 05:00 Monocytes # (Manual) 0.0 K/mm3 (0.0-0.8) 11/22/16 05:00 Eosinophils # (Manual) 0.3 K/mm3 (0.0-0.4) 11/22/16 05:00 Basophils # (Manual) 0.0 K/mm3 (0.0-0.1) 11/22/16 05:00 Metamyelocytes # 0.3 K/mm3 11/22/16 05:00 Myelocytes # 0.6 K/mm3 11/22/16 05:00 Promyelocytes # 0.0 K/mm3 11/22/16 05:00 Blast Cells # 0.0 K/mm3 11/22/16 05:00 Pathologist Review 09/13/16 04:00 WBC Morphology Not Reportable 11/22/16 05:00 Hypersegmented Neuts Not Reportable 11/22/16 05:00 Hyposegmented Neuts Not Reportable 11/22/16 05:00 Hypogranular Neuts Not Reportable 11/22/16 05:00 Smudge Cells Not Reportable 11/22/16 05:00 Toxic Granulation Not Reportable 11/22/16 05:00 Toxic Vacuolation Not Reportable 11/22/16 05:00 Dohle Bodies Not Reportable 11/22/16 05:00 Pelger-Huet Anomaly Not Reportable 11/22/16 05:00 Jasmina Rods Not Reportable 11/22/16 05:00 Platelet Estimate Not Reportable 11/22/16 05:00 Clumped Platelets Not Reportable 11/22/16 05:00 Plt Clumps, EDTA Not Reportable 11/22/16 05:00 Large Platelets Not Reportable 11/22/16 05:00 Giant Platelets Not Reportable 11/22/16 05:00 Platelet Satelliting Not Reportable 11/22/16 05:00 Plt Morphology Comment Not Reportable 11/22/16 05:00 RBC Morphology Not Reportable 11/22/16 05:00 Dimorphic RBCs Not Reportable 11/22/16 05:00 Polychromasia Few 11/22/16 05:00 Hypochromasia Not Reportable 11/22/16 05:00 Poikilocytosis Not Reportable 11/22/16 05:00 Anisocytosis Not Reportable 11/22/16 05:00 Microcytosis Not Reportable 11/22/16 05:00 Macrocytosis Not Reportable 11/22/16 05:00 Spherocytes Not Reportable 11/22/16 05:00 Pappenheimer Bodies Not Reportable 11/22/16 05:00 Sickle Cells Not Reportable 11/22/16 05:00 Target Cells Not Reportable 11/22/16 05:00 Tear Drop Cells Not Reportable 11/22/16 05:00 Ovalocytes Not Reportable 11/22/16 05:00 Stomatocytes Few 10/06/16 03:50 Helmet Cells Not Reportable 11/22/16 05:00 Monet-[place] Bodies Not Reportable 11/22/16 05:00 [place] Rings Not Reportable 11/22/16 05:00 Lyons Cells Not Reportable 11/22/16 05:00 Bite Cells Not Reportable 11/22/16 05:00 Crenated Cell Not Reportable 11/22/16 05:00 Elliptocytes Not Reportable 11/22/16 05:00 Acanthocytes (Spur) Not Reportable 11/22/16 05:00 Rouleaux Not Reportable 11/22/16 05:00 Hemoglobin C Crystals Not Reportable 11/22/16 05:00 Schistocytes Not Reportable 11/22/16 05:00 Malaria parasites Not Reportable 11/22/16 05:00 ESR > 140.0 mm/Hr (0-20) 09/08/16 11:48 Jun Bodies Not Reportable 11/22/16 05:00 Hem Pathologist Commnt No 11/22/16 05:00 PT 16.8 Sec. (12.2-14.9) H 11/17/16 03:20 INR 1.37 (0.87-1.13) H 11/17/16 03:20 APTT 33.0 Sec. (24.2-36.6) 10/09/16 03:45 Thrombin Time 16.8 Sec. (15.1-19.6) 09/03/16 00:10 Fibrinogen 750 mg/dl (211-480) H 09/08/16 11:48 Lupus Anticoagulant see below 09/12/16 09:59 LA PTT Baseline See scanned report 09/12/16 09:59 dRVVT Confirm Interp Positive (Negative) H 09/12/16 09:59 dRVVT Screen 50:50 See scanned report 09/12/16 09:59 dRVVT Mix Interpret See scanned report 09/12/16 09:59 Protein C Antigen 122 % (70-140) 09/08/16 15:35 Free Protein S 97 % normal (50-147) 09/08/16 15:35 Total Protein S 109 % (70-140) 09/08/16 15:35 Antithrombin III Ag 100 % (80-120) 09/08/16 15:35 Heparin Anti-Xa, Unfract Negative (Negative) 09/29/16 13:35 Factor V Activity 182 % (65-150) H 09/08/16 15:35 POC ABG pH 7.487 (7.35-7.45) H 11/25/16 14:12 ABG pH 7.436 pH Units (7.350-7.450) 11/30/16 23:35 POC ABG pCO2 39.0 (35-45) 11/25/16 14:12 ABG pCO2 38.0 mm Hg 11/30/16 23:35 POC ABG pO2 153 (80-105) H 11/25/16 14:12 ABG pO2 83.0 mm Hg (80.0-90.0) 11/30/16 23:35 POC ABG HCO3 29.5 11/25/16 14:12 ABG HCO3 25.0 mmol/L (20.0-26.0) 11/30/16 23:35 POC ABG Total CO2 31 11/25/16 14:12 POC ABG O2 Sat 99 11/25/16 14:12 ABG O2 Saturation 96.9 % (95.0-99.0) 11/30/16 23:35 ABG O2 Content 9.4 (0.0-44) 11/30/16 23:35 POC ABG Base Excess 6 11/25/16 14:12 ABG Base Excess 0.8 mmol/L (-2.0-3.0) 11/30/16 23:35 ABG Hemoglobin 6.9 gm/dl (12.0-16.0) L 11/30/16 23:35 ABG Carboxyhemoglobin 1.5 % (0.0-5.0) 11/30/16 23:35 ABG Methemoglobin 0.5 % (0.0-1.5) 11/30/16 23:35 Oxyhemoglobin 95.0 % (95.0-99.0) 11/30/16 23:35 FiO2 28 % 11/30/16 23:35 Sodium 139 mmol/L (137-145) 12/02/16 05:00 Potassium 3.8 mmol/L (3.6-5.0) 12/02/16 05:00 Chloride 101.4 mmol/L (98-107) 12/02/16 05:00 Carbon Dioxide 25 mmol/L (22-30) 12/02/16 05:00 Anion Gap 16 mmol/L 12/02/16 05:00 BUN 45 mg/dL (7-17) H 12/02/16 05:00 Creatinine 1.2 mg/dL (0.7-1.2) 12/02/16 05:00 Estimated GFR 59 ml/min 12/02/16 05:00 BUN/Creatinine Ratio 38 % 12/02/16 05:00 Glucose 115 mg/dL (65-100) H 12/02/16 05:00 POC Glucose 139 (70-105) H 12/02/16 17:38 Osmolality 351 Mosm/kg 09/16/16 11:47 Lactic Acid 4.50 mmol/L (0.7-2.0) H* 09/28/16 07:25 Calcium 8.4 mg/dL (8.4-10.2) 12/02/16 05:00 Phosphorus 3.40 mg/dL (2.5-4.5) D 12/02/16 05:00 Magnesium 1.80 mg/dL (1.7-2.3) 12/01/16 03:35 Total Bilirubin 0.60 mg/dL (0.1-1.2) 11/25/16 04:42 Direct Bilirubin 0.3 mg/dL (0-0.2) H 10/10/16 05:00 Indirect Bilirubin 0.1 mg/dL 10/10/16 05:00 AST 19 units/L (5-40) 11/25/16 04:42 ALT 15 units/L (7-56) 11/25/16 04:42 Alkaline Phosphatase 142 units/L (35-129) H 11/25/16 04:42 Ammonia 27.0 umol/L (25-60) 09/07/16 08:37 Lactate Dehydrogenase 196 units/L (91-180) H 11/11/16 06:59 Total Creatine Kinase 121 units/L (30-135) 09/29/16 20:12 CK-MB (CK-2) < 1.0 ng/mL (0.0-4.0) 09/29/16 20:12 CK-MB (CK-2) Rel Index 0.8 (0-4) 09/29/16 20:12 Troponin T 0.204 ng/mL (0.00-0.029) H* 09/29/16 20:12 C-Reactive Protein 11.40 mg/dL (0.00-1.30) H 11/05/16 13:25 Total Protein 5.7 g/dL (6.3-8.2) L 11/25/16 04:42 Albumin 1.5 g/dL (3.9-5) L 11/25/16 04:42 Albumin/Globulin Ratio 0.4 % 11/25/16 04:42 Prealbumin 0.180 g/L (0.200-0.400) L 11/06/16 06:25 Triglycerides 137 mg/dL (2-149) 09/29/16 20:12 Cholesterol 31 mg/dL (50-199) L 09/29/16 20:12 LDL Cholesterol Direct 4 mg/dL (50-130) L 09/29/16 20:12 HDL Cholesterol 3 mg/dL (40-59) L 09/29/16 20:12 Cholesterol/HDL Ratio 10.33 % 09/29/16 20:12 Angiotensin Convert Enz See scanned report 09/08/16 11:48 Renin 0.99 ng/mL/h (0.25-5.82) 10/07/16 10:56 Aldosterone <1 ng/dL () 10/07/16 10:56 Aldosterone/Renin Dir see below 10/07/16 10:56 Serotonin Release Assay See scanned report 09/29/16 13:35 TSH 1.010 mlU/mL (0.270-4.200) 09/07/16 08:37 HCG, Qual Negative (Negative) 09/03/16 00:10 Urine Color Yellow (Yellow) 11/05/16 13:09 Urine Turbidity Clear (Clear) 11/05/16 13:09 Urine pH 9.0 (5.0-7.0) H 11/05/16 13:09 Ur Specific [place] 1.011 (1.003-1.030) 11/05/16 13:09 Urine Protein 100 mg/dl mg/dL (Negative) 11/05/16 13:09 Urine Glucose (UA) Neg mg/dL (Negative) 11/05/16 13:09 Urine Ketones Neg mg/dL (Negative) 11/05/16 13:09 Urine Blood Neg (Negative) 11/05/16 13:09 Urine Nitrite Neg (Negative) 11/05/16 13:09 Urine Bilirubin Neg (Negative) 11/05/16 13:09 Urine Urobilinogen < 2.0 mg/dL (<2.0) 11/05/16 13:09 Ur Leukocyte Esterase Neg (Negative) 11/05/16 13:09 Urine WBC (Auto) 4.0 /HPF (0.0-6.0) 11/05/16 13:09 Urine RBC (Auto) 1.0 /HPF (0.0-6.0) 11/05/16 13:09 U Epithel Cells (Auto) 1.0 /HPF (0-13.0) 10/07/16 18:30 Urine Bacteria (Auto) 4+ /HPF (Negative) 11/05/16 13:09 Urine WBC Clumps 2+ /HPF 09/07/16 02:47 Hyaline Casts 4 /LPF 09/07/16 02:47 Urine Mucus Few /HPF 10/07/16 18:30 Urine Yeast (Budding) 3+ /HPF 10/07/16 18:30 Urine Eosinophils None seen (None Seen) 09/07/16 16:00 Urine Total Volume 950 11/12/16 10:18 Urine Creatinine 19.7 mg/dL (0.1-20.0) 11/12/16 10:18 Height (in) 65.0 inches 11/12/16 10:18 Weight (lb) 181.0 lbs 11/12/16 10:18 Creatinine Clearance 5 11/12/16 10:18 Urine Sodium 36 mEq/L 09/16/16 19:19 Urine Total Protein 16 mg/dL (5-11.8) H 09/16/16 19:19 Fluid Total Protein < 3.0 (15.0-45.0) L 11/10/16 14:20 Fluid LDH 123 11/10/16 14:20 Vancomycin Trough 2.3 ug/mL (5.0-20.0) L 09/21/16 13:00 Random Vancomycin 16.5 ug/mL (0-40.0) 11/28/16 09:45 Urine Opiates Screen Presumptive negative 09/03/16 15:11 Urine Methadone Screen Presumptive positive 09/03/16 15:11 Ur Barbiturates Screen Presumptive positive 09/03/16 15:11 Ur Phencyclidine Scrn Presumptive negative 09/03/16 15:11 Ur Amphetamines Screen Presumptive negative 09/03/16 15:11 U Benzodiazepines Scrn Presumptive negative 09/03/16 15:11 Urine Cocaine Screen Presumptive negative 09/03/16 15:11 U Marijuana (THC) Screen Presumptive positive 09/03/16 15:11 Drugs of Abuse Note Disclamer 09/03/16 15:11 Rheumatoid Factor 24 IU/ml (0-13) H 09/08/16 11:48 SAHIL Screen Negative (Negative) 09/07/16 09:20 Proteinase 3 (PR3) Ab <1.0 AI (<1.0) 09/07/16 09:20 Myeloperoxidase Ab <1.0 AI (<1.0) 09/07/16 09:20 Sjogren's Antibody <1.0 AI (<1.0) 09/08/16 15:35 Scl-70 Scleroderma Ab <1.0 AI (<1.0) 09/08/16 15:35 Centromere B Antibody <1.0 AI (<1.0) 09/08/16 12:02 Heparin-induced Plt Ab Negative (Negative) 09/29/16 13:35 UF Heparin High Dose 11 % Release 09/29/16 13:35 SUDHIR UFH Low Dose 0.1 6 % Release 09/29/16 13:35 SUDHIR UFH Low Dose 0.5 8 % Release 09/29/16 13:35 Cardiolipid IgG Ab <14 GPL (<=14) 09/12/16 09:59 Cardiolipid IgA Ab <11 APL (<=11) 09/12/16 09:59 Cardiolipid IgM Ab <12 MPL (<=12) 09/12/16 09:59 Complement C3 148 mg/dL (90-180) 09/07/16 09:20 Complement C4 58 mg/dL (16-47) H 09/07/16 09:20 RPR Nonreactive (Nonreactive) 09/08/16 11:48 Hepatitis A IgM Ab Non-reactive (NonReactive) 09/24/16 14:40 Hep Bs Antigen Non-reactive (Negative) 09/24/16 14:40 Hep B Core IgM Ab Non-reactive (NonReactive) 09/24/16 14:40 Hepatitis C Antibody Non-reactive (NonReactive) 09/24/16 14:40 HIV 1&2 Antibody Rapid Non react (Non React) 09/08/16 11:48 HIV P24 Antigen Non react (Non React) 09/08/16 11:48 Miscellaneous Test Flexitest 1 H 11/05/16 13:25 Blood Type A POSITIVE 11/24/16 11:20 Antibody Screen TNR 11/24/16 11:20 DELORIS Antibody Screen Negative 11/24/16 11:20 Crossmatch See Detail 11/24/16 11:20
[2016-12-02] MEDS: ARTIFICIAL TEARS OPHTH OINT OU PRN (22:36)
[2016-12-03] MEDS: HumuLIN R SUB-Q SCH ×4 (01:04→18:26)
[2016-12-03] MEDS: LOPRESSOR PO SCH ×4 (01:06→18:25)
[2016-12-03] MEDS: APRESOLINE IV PRN (05:16)
[2016-12-03] MEDS: LASIX IV SCH ×2 (05:16→18:25)
[2016-12-03] MEDS: APRESOLINE PO SCH ×3 (05:17→21:37)
[2016-12-03 06:18] LABS: Hematocrit 23.6 % (30.3-42.9); Hemoglobin 7.4 gm/dl (10.1-14.3); Mean Corpuscular HGB Conc 31 % (30-34); Mean Corpuscular Hemoglobin 27 pg (28-32); Mean Corpuscular Volume 86 fl (79-97); Platelet Count 335 K/mm3 (140-440); Red Blood Count 2.74 M/mm3 (3.65-5.03); Red Cell Distribution Width 17.1 % (13.2-15.2)
[2016-12-03 08:41] LABS: Anisocytosis 1+; Basophils % (Manual) 0 % (0.0-1.8); Total Cells Counted 100
[2016-12-03 08:42] LABS: Dohle Bodies Rare; Hypochromasia 1+; Stomatocytes Rare; Target Cells Rare
[2016-12-03] MEDS: HEPARIN SUB-Q SCH ×2 (10:03→21:39)
[2016-12-03] MEDS: PROTONIX FEEDTUBE SCH (10:04)
[2016-12-03] MEDS: NORVASC PO SCH (10:04)
--- NOTE | 2016-12-03 10:35 | Progress Note ---
Assessment and Plan Patient continues to be stable. Due to fistulogram results, will elect to keep patient NPO (May have meds) and w/o tube feeds to allow tract to heal. Continue TPN. Poor prognosis form neurologic standpoint. Subjective Date of service: 12/03/16 Patient Reports: Positive: no new complaints (Non-verbal) Objective Vital Signs - 12hr 12/02/16 12/02/16 12/02/16 22:36 23:00 23:30 Temperature Pulse Rate 102 H 100 H 99 H Pulse Rate [ From Monitor] Respiratory 18 17 Rate Blood Pressure 114/66 108/66 108/61 O2 Sat by Pulse 99 99 Oximetry O2 Sat by Pulse Oximetry [ Assessment] 12/02/16 12/03/16 12/03/16 23:57 00:00 00:20 Temperature 98.0 F Pulse Rate 97 H 97 H 101 H Pulse Rate [ 100 H From Monitor] Respiratory 19 16 Rate Blood Pressure 108/60 116/66 110/59 O2 Sat by Pulse 100 99 99 Oximetry O2 Sat by Pulse 100 Oximetry [ Assessment] 12/03/16 12/03/16 12/03/16 00:31 01:01 01:06 Temperature Pulse Rate 97 H 91 H 95 H Pulse Rate [ From Monitor] Respiratory 14 14 Rate Blood Pressure 115/64 95/53 95/53 O2 Sat by Pulse 98 99 Oximetry O2 Sat by Pulse Oximetry [ Assessment] 12/03/16 12/03/16 12/03/16 01:30 02:01 02:30 Temperature Pulse Rate 89 87 88 Pulse Rate [ From Monitor] Respiratory 15 13 14 Rate Blood Pressure 105/67 105/62 120/66 O2 Sat by Pulse 98 100 100 Oximetry O2 Sat by Pulse Oximetry [ Assessment] 12/03/16 12/03/16 12/03/16 03:01 03:31 03:41 Temperature 97.4 F L Pulse Rate 88 95 H Pulse Rate [ From Monitor] Respiratory 17 16 Rate Blood Pressure 112/63 89/45 O2 Sat by Pulse 99 98 Oximetry O2 Sat by Pulse Oximetry [ Assessment] 12/03/16 12/03/16 12/03/16 03:52 04:00 04:31 Temperature Pulse Rate 99 H 97 H 102 H Pulse Rate [ 99 H From Monitor] Respiratory 12 11 L Rate Blood Pressure 156/85 150/85 172/91 O2 Sat by Pulse 98 99 99 Oximetry O2 Sat by Pulse Oximetry [ Assessment] 12/03/16 12/03/16 12/03/16 05:01 05:16 05:17 Temperature Pulse Rate 101 H 102 H 102 H Pulse Rate [ From Monitor] Respiratory 18 Rate Blood Pressure 152/77 172/91 172/91 O2 Sat by Pulse 99 Oximetry O2 Sat by Pulse Oximetry [ Assessment] 12/03/16 12/03/16 12/03/16 05:31 06:01 06:31 Temperature Pulse Rate 98 H 99 H 97 H Pulse Rate [ From Monitor] Respiratory 20 17 17 Rate Blood Pressure 139/76 145/74 148/76 O2 Sat by Pulse 98 97 98 Oximetry O2 Sat by Pulse Oximetry [ Assessment] 12/03/16 12/03/16 12/03/16 07:00 07:01 07:31 Temperature Pulse Rate 95 H 93 H Pulse Rate [ 94 H From Monitor] Respiratory 17 19 18 Rate Blood Pressure 127/70 128/73 O2 Sat by Pulse 99 99 99 Oximetry O2 Sat by Pulse Oximetry [ Assessment] 12/03/16 12/03/16 12/03/16 08:00 08:01 08:30 Temperature 98.4 F Pulse Rate 100 H 93 H Pulse Rate [ From Monitor] Respiratory 18 14 Rate Blood Pressure 120/78 146/80 O2 Sat by Pulse 99 100 Oximetry O2 Sat by Pulse Oximetry [ Assessment] 12/03/16 12/03/16 09:01 10:04 Temperature Pulse Rate 97 H 107 H Pulse Rate [ From Monitor] Respiratory 13 Rate Blood Pressure 132/87 165/90 O2 Sat by Pulse 100 Oximetry O2 Sat by Pulse Oximetry [ Assessment] - General physical appearance well developed - Respiratory normal expansion, normal respiratory effort - Abdomen soft, bowel sounds normal, not rebound, not guarding, not rigid, wound (Ostomy appliances covering them) - Labs 12/03/16 04:00 12/03/16 04:00 Diabetes panel 12/03/16 Range/Units 04:00 Sodium 139 (137-145) mmol/L Potassium 3.7 (3.6-5.0) mmol/L Chloride 100.4 (98-107) mmol/L Carbon Dioxide 23 (22-30) mmol/L BUN 61 H (7-17) mg/dL Creatinine 1.6 H (0.7-1.2) mg/dL Glucose 119 H (65-100) mg/dL Calcium 9.0 (8.4-10.2) mg/dL Calcium panel 12/03/16 Range/Units 04:00 Calcium 9.0 (8.4-10.2) mg/dL Phosphorus 3.40 (2.5-4.5) mg/dL Pituitary panel 12/03/16 Range/Units 04:00 Sodium 139 (137-145) mmol/L Potassium 3.7 (3.6-5.0) mmol/L Chloride 100.4 (98-107) mmol/L Carbon Dioxide 23 (22-30) mmol/L BUN 61 H (7-17) mg/dL Creatinine 1.6 H (0.7-1.2) mg/dL Glucose 119 H (65-100) mg/dL Calcium 9.0 (8.4-10.2) mg/dL Adrenal panel 12/03/16 Range/Units 04:00 Sodium 139 (137-145) mmol/L Potassium 3.7 (3.6-5.0) mmol/L Chloride 100.4 (98-107) mmol/L Carbon Dioxide 23 (22-30) mmol/L BUN 61 H (7-17) mg/dL Creatinine 1.6 H (0.7-1.2) mg/dL Glucose 119 H (65-100) mg/dL Calcium 9.0 (8.4-10.2) mg/dL
--- NOTE | 2016-12-03 14:54 | Progress Note ---
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 * Acute hypoxic respiratory failure * Left renal artery stenosis * Anemia * Hypertension * Hyponatremia * Tachycardia Plan: * Continue HD MWF schedule * UF as tolerated * Dose medications for renal function * Avoid potential nephrotoxins * Rate control per cardiology Subjective Date of service: 12/03/16 Principal diagnosis: Acute resp failure on MVS; S/P Acute CVA; Acute Encephalopathy; JUANITA Interval history: No acute events overnight Objective - Vital Signs Vital signs: Vital Signs - 12hr 12/03/16 12/03/16 12/03/16 03:01 03:31 03:41 Temperature 97.4 F L Pulse Rate 88 95 H Pulse Rate [ From Monitor] Respiratory 17 16 Rate Blood Pressure 112/63 89/45 O2 Sat by Pulse 99 98 Oximetry O2 Sat by Pulse Oximetry [ Assessment] 12/03/16 12/03/16 12/03/16 03:52 04:00 04:31 Temperature Pulse Rate 99 H 97 H 102 H Pulse Rate [ 99 H From Monitor] Respiratory 12 11 L Rate Blood Pressure 156/85 150/85 172/91 O2 Sat by Pulse 98 99 99 Oximetry O2 Sat by Pulse Oximetry [ Assessment] 12/03/16 12/03/16 12/03/16 05:01 05:16 05:17 Temperature Pulse Rate 101 H 102 H 102 H Pulse Rate [ From Monitor] Respiratory 18 Rate Blood Pressure 152/77 172/91 172/91 O2 Sat by Pulse 99 Oximetry O2 Sat by Pulse Oximetry [ Assessment] 12/03/16 12/03/16 12/03/16 05:31 06:01 06:31 Temperature Pulse Rate 98 H 99 H 97 H Pulse Rate [ From Monitor] Respiratory 20 17 17 Rate Blood Pressure 139/76 145/74 148/76 O2 Sat by Pulse 98 97 98 Oximetry O2 Sat by Pulse Oximetry [ Assessment] 12/03/16 12/03/16 12/03/16 07:00 07:01 07:31 Temperature Pulse Rate 95 H 93 H Pulse Rate [ 94 H From Monitor] Respiratory 17 19 18 Rate Blood Pressure 127/70 128/73 O2 Sat by Pulse 99 99 99 Oximetry O2 Sat by Pulse Oximetry [ Assessment] 12/03/16 12/03/16 12/03/16 08:00 08:01 08:30 Temperature 98.4 F Pulse Rate 100 H 93 H Pulse Rate [ From Monitor] Respiratory 18 14 Rate Blood Pressure 120/78 146/80 O2 Sat by Pulse 99 100 Oximetry O2 Sat by Pulse Oximetry [ Assessment] 12/03/16 12/03/16 12/03/16 09:01 09:30 10:00 Temperature Pulse Rate 97 H 100 H 103 H Pulse Rate [ From Monitor] Respiratory 13 17 19 Rate Blood Pressure 132/87 151/85 165/90 O2 Sat by Pulse 100 100 100 Oximetry O2 Sat by Pulse Oximetry [ Assessment] 12/03/16 12/03/16 12/03/16 10:04 10:30 11:00 Temperature Pulse Rate 107 H 104 H 110 H Pulse Rate [ From Monitor] Respiratory 17 18 Rate Blood Pressure 165/90 166/90 162/89 O2 Sat by Pulse 99 100 Oximetry O2 Sat by Pulse Oximetry [ Assessment] 12/03/16 12/03/16 12/03/16 11:30 11:41 12:00 Temperature 97.8 F Pulse Rate 110 H 109 H 109 H Pulse Rate [ From Monitor] Respiratory 25 H 18 Rate Blood Pressure 147/82 147/82 142/82 O2 Sat by Pulse 100 100 100 Oximetry O2 Sat by Pulse Oximetry [ Assessment] 12/03/16 12/03/16 12/03/16 12:01 12:20 12:30 Temperature Pulse Rate 109 H 99 H Pulse Rate [ 102 H From Monitor] Respiratory 18 17 Rate Blood Pressure 162/87 150/85 O2 Sat by Pulse 96 99 Oximetry O2 Sat by Pulse Oximetry [ Assessment] 12/03/16 12/03/16 12/03/16 13:00 13:30 14:00 Temperature Pulse Rate 99 H 102 H 101 H Pulse Rate [ From Monitor] Respiratory 11 L 20 12 Rate Blood Pressure 142/82 158/79 146/88 O2 Sat by Pulse 100 100 100 Oximetry O2 Sat by Pulse Oximetry [ Assessment] 12/03/16 12/03/16 12/03/16 14:30 14:36 14:42 Temperature Pulse Rate 102 H 102 H Pulse Rate [ From Monitor] Respiratory 18 Rate Blood Pressure 146/76 146/76 O2 Sat by Pulse 91 Oximetry O2 Sat by Pulse 100 Oximetry [ Assessment] - General Appearance General appearance: well-developed, well-nourished, intubated EENT: ATNC Respiratory: Present: Clear to Ascultation Cardiology: regular, S1S2 Gastrointestinal: normoactive bowel sounds Integumentary: no rash, warm and dry Musculoskeletal: other (1+ edema) - Lab 12/03/16 04:00 12/03/16 04:00 Most recent lab results ABG pH 7.436 pH Units (7.350-7.450) 11/30/16 23:35 ABG pCO2 38.0 mm Hg 11/30/16 23:35 ABG pO2 83.0 mm Hg (80.0-90.0) 11/30/16 23:35 ABG HCO3 25.0 mmol/L (20.0-26.0) 11/30/16 23:35 ABG O2 Saturation 96.9 % (95.0-99.0) 11/30/16 23:35 Calcium 9.0 mg/dL (8.4-10.2) 12/03/16 04:00 Phosphorus 3.40 mg/dL (2.5-4.5) 12/03/16 04:00 Magnesium 1.70 mg/dL (1.7-2.3) 12/03/16 04:00 Urine Creatinine 19.7 mg/dL (0.1-20.0) 11/12/16 10:18 Urine Sodium 36 mEq/L 09/16/16 19:19 Urine Total Protein 16 mg/dL (5-11.8) H 09/16/16 19:19
--- NOTE | 2016-12-03 15:42 | Progress Note ---
Assessment and Plan Patient not responding to verbal stimuli. Resting on mechanical ventilation , assist control rate 12 , tidal volume 500 , FIO2 30% PEEP 5 and O2 saturation 100%. - Patient Problems (1) Acute respiratory failure with hypoxia Current Visit: Yes Status: Acute Plan to address problem: Patient is on mechanical ventilation. Assist control rate 12, tidal volume 500, FIO2 30%, PEEP 5 . O2 saturation 100%. S/P tracheostomy. Albuterol/atrovent aerosol treatments q 6 hours. Continue S/C Heparin Continue Protonix. (2) Aspiration pneumonia Current Visit: Yes Status: Acute Qualifiers: Aspiration pneumonia type: A Laterality: L Lung location: L Plan to address problem: Patient is on vancomycin. Antibiotics as per infectious diseases. (3) Atrial fibrillation Current Visit: Yes Status: Acute Qualifiers: Atrial fibrillation type: A Plan to address problem: Management as per primary care and cardiology. (4) JUANITA (acute kidney injury) Current Visit: Yes Status: Acute Plan to address problem: Management as per nephrology. (5) Acute CVA (cerebrovascular accident) Current Visit: Yes Status: Acute Plan to address problem: Management as per primary care and neurology Subjective Date of service: 12/03/16 Principal diagnosis: Acute resp failure on MVS; S/P Acute CVA; Acute Encephalopathy; JUANITA Interval history: Patient not responding to verbal stimuli. Resting on mechanical ventilation , assist control rate 12 , tidal volume 500 , FIO2 30% PEEP 5 and O2 saturation 100%. I spent approximately 45 minutes of critical care time on this patient. By reviewing the chart, examinining the patient. ,review labs and chest xray, talking to respiratory therapy and nursing staff and work out plan of treatment. Objective Vital Signs - 12hr 12/03/16 12/03/16 12/03/16 03:41 03:52 04:00 Temperature 97.4 F L Pulse Rate 99 H 97 H Pulse Rate [ 99 H From Monitor] Respiratory 12 Rate Blood Pressure 156/85 150/85 O2 Sat by Pulse 98 99 Oximetry O2 Sat by Pulse Oximetry [ Assessment] 12/03/16 12/03/16 12/03/16 04:31 05:01 05:16 Temperature Pulse Rate 102 H 101 H 102 H Pulse Rate [ From Monitor] Respiratory 11 L 18 Rate Blood Pressure 172/91 152/77 172/91 O2 Sat by Pulse 99 99 Oximetry O2 Sat by Pulse Oximetry [ Assessment] 12/03/16 12/03/16 12/03/16 05:17 05:31 06:01 Temperature Pulse Rate 102 H 98 H 99 H Pulse Rate [ From Monitor] Respiratory 20 17 Rate Blood Pressure 172/91 139/76 145/74 O2 Sat by Pulse 98 97 Oximetry O2 Sat by Pulse Oximetry [ Assessment] 12/03/16 12/03/16 12/03/16 06:31 07:00 07:01 Temperature Pulse Rate 97 H 95 H Pulse Rate [ 94 H From Monitor] Respiratory 17 17 19 Rate Blood Pressure 148/76 127/70 O2 Sat by Pulse 98 99 99 Oximetry O2 Sat by Pulse Oximetry [ Assessment] 12/03/16 12/03/16 12/03/16 07:31 08:00 08:01 Temperature 98.4 F Pulse Rate 93 H 100 H Pulse Rate [ From Monitor] Respiratory 18 18 Rate Blood Pressure 128/73 120/78 O2 Sat by Pulse 99 99 Oximetry O2 Sat by Pulse Oximetry [ Assessment] 12/03/16 12/03/16 12/03/16 08:30 09:01 09:30 Temperature Pulse Rate 93 H 97 H 100 H Pulse Rate [ From Monitor] Respiratory 14 13 17 Rate Blood Pressure 146/80 132/87 151/85 O2 Sat by Pulse 100 100 100 Oximetry O2 Sat by Pulse Oximetry [ Assessment] 12/03/16 12/03/16 12/03/16 10:00 10:04 10:30 Temperature Pulse Rate 103 H 107 H 104 H Pulse Rate [ From Monitor] Respiratory 19 17 Rate Blood Pressure 165/90 165/90 166/90 O2 Sat by Pulse 100 99 Oximetry O2 Sat by Pulse Oximetry [ Assessment] 12/03/16 12/03/16 12/03/16 11:00 11:30 11:41 Temperature Pulse Rate 110 H 110 H 109 H Pulse Rate [ From Monitor] Respiratory 18 25 H Rate Blood Pressure 162/89 147/82 147/82 O2 Sat by Pulse 100 100 100 Oximetry O2 Sat by Pulse Oximetry [ Assessment] 12/03/16 12/03/16 12/03/16 12:00 12:01 12:20 Temperature 97.8 F Pulse Rate 109 H 109 H Pulse Rate [ 102 H From Monitor] Respiratory 18 18 Rate Blood Pressure 142/82 162/87 O2 Sat by Pulse 100 96 Oximetry O2 Sat by Pulse Oximetry [ Assessment] 12/03/16 12/03/16 12/03/16 12:30 13:00 13:30 Temperature Pulse Rate 99 H 99 H 102 H Pulse Rate [ From Monitor] Respiratory 17 11 L 20 Rate Blood Pressure 150/85 142/82 158/79 O2 Sat by Pulse 99 100 100 Oximetry O2 Sat by Pulse Oximetry [ Assessment] 12/03/16 12/03/16 12/03/16 14:00 14:30 14:36 Temperature Pulse Rate 101 H 102 H Pulse Rate [ From Monitor] Respiratory 12 18 Rate Blood Pressure 146/88 146/76 O2 Sat by Pulse 100 91 Oximetry O2 Sat by Pulse 100 Oximetry [ Assessment] 12/03/16 14:42 Temperature Pulse Rate 102 H Pulse Rate [ From Monitor] Respiratory Rate Blood Pressure 146/76 O2 Sat by Pulse Oximetry O2 Sat by Pulse Oximetry [ Assessment] Constitutional: no acute distress, other (eyes open; tracking movements) Eyes: non-icteric, other (tracheostomy tube in midline of neck) ENT: oropharynx moist Neck: supple, no lymphadenopathy Effort: mildly labored Ascultation: Bilateral: diminished breath sounds (bases), rales, rhonchi (and referred upper airway sounds) Percussion: Bilateral: dull (bases) Cardiovascular: regular rate and rhythm, other (no rubs / murmurs) Gastrointestinal: hypoactive bowel sounds, soft, non-tender, non-distended, other (RLQ stomas with colostomy bags) Integumentary: other (healing back burn-like injury; poor turgor) Extremities: no cyanosis, no edema, pulses normal, no ischemia or petechiae Neurologic: pupils equal and round, other (encephalopathic) Psychiatric: other (unable to assess) CBC and BMP: 12/03/16 04:00 12/03/16 04:00 ABG, PT/INR, D-dimer: ABG POC ABG pH 7.487 (7.35-7.45) H 11/25/16 14:12 ABG pH 7.436 pH Units (7.350-7.450) 11/30/16 23:35 POC ABG pCO2 39.0 (35-45) 11/25/16 14:12 ABG pCO2 38.0 mm Hg 11/30/16 23:35 POC ABG pO2 153 (80-105) H 11/25/16 14:12 ABG pO2 83.0 mm Hg (80.0-90.0) 11/30/16 23:35 POC ABG HCO3 29.5 11/25/16 14:12 POC ABG Total CO2 31 11/25/16 14:12 POC ABG O2 Sat 99 11/25/16 14:12 ABG O2 Saturation 96.9 % (95.0-99.0) 11/30/16 23:35 PT/INR, D-dimer PT 16.8 Sec. (12.2-14.9) H 11/17/16 03:20 INR 1.37 (0.87-1.13) H 11/17/16 03:20 Abnormal lab findings: Abnormal Labs 09/03/16 09/03/16 09/03/16 12:12 15:07 16:20 WBC RBC Hgb Hct MCV MCH MCHC RDW Plt Count Lymph % (Auto) [place] % (Auto) Lymph # [place] # Baso # Seg Neutrophils % Seg Neuts % (Manual) Lymphocytes % (Manual) Monocytes % (Manual) Eosinophils % (Manual) Basophils % (Manual) Nucleated RBC % Seg Neutrophils # Seg Neutrophils # Man Lymphocytes # (Manual) Monocytes # (Manual) Eosinophils # (Manual) PT INR Fibrinogen dRVVT Confirm Interp Factor V Activity POC ABG pH 7.452 H POC ABG pCO2 POC ABG pO2 ABG pO2 ABG HCO3 ABG Hemoglobin Oxyhemoglobin Sodium Potassium Chloride Carbon Dioxide BUN Creatinine Glucose POC Glucose 178 H Lactic Acid Calcium Phosphorus 2.20 L Magnesium 1.60 L Direct Bilirubin AST ALT Alkaline Phosphatase Lactate Dehydrogenase Troponin T C-Reactive Protein Total Protein Albumin Prealbumin Triglycerides Cholesterol LDL Cholesterol Direct HDL Cholesterol Urine pH Urine WBC (Auto) Urine Creatinine Urine Total Protein Fluid Total Protein Vancomycin Trough Rheumatoid Factor Complement C4 Miscellaneous Test Crossmatch 09/03/16 09/03/16 09/03/16 17:57 17:58 23:50 WBC RBC Hgb Hct MCV MCH MCHC RDW Plt Count Lymph % (Auto) [place] % (Auto) Lymph # [place] # Baso # Seg Neutrophils % Seg Neuts % (Manual) Lymphocytes % (Manual) Monocytes % (Manual) Eosinophils % (Manual) Basophils % (Manual) Nucleated RBC % Seg Neutrophils # Seg Neutrophils # Man Lymphocytes # (Manual) Monocytes # (Manual) Eosinophils # (Manual) PT INR Fibrinogen dRVVT Confirm Interp Factor V Activity POC ABG pH POC ABG pCO2 POC ABG pO2 ABG pO2 ABG HCO3 ABG Hemoglobin Oxyhemoglobin Sodium Potassium Chloride Carbon Dioxide BUN Creatinine Glucose POC Glucose 162 H 145 H Lactic Acid Calcium Phosphorus 2.30 L Magnesium Direct Bilirubin AST ALT Alkaline Phosphatase Lactate Dehydrogenase Troponin T C-Reactive Protein Total Protein Albumin Prealbumin Triglycerides Cholesterol LDL Cholesterol Direct HDL Cholesterol Urine pH Urine WBC (Auto) Urine Creatinine Urine Total Protein Fluid Total Protein Vancomycin Trough Rheumatoid Factor Complement C4 Miscellaneous Test Crossmatch 09/04/16 09/04/16 09/04/16 03:31 03:31 05:42 WBC RBC Hgb 9.7 L D Hct MCV 72 L MCH 23 L MCHC RDW 17.5 H Plt Count Lymph % (Auto) 11.1 L [place] % (Auto) Lymph # [place] # Baso # Seg Neutrophils % 84.3 H Seg Neuts % (Manual) Lymphocytes % (Manual) Monocytes % (Manual) Eosinophils % (Manual) Basophils % (Manual) Nucleated RBC % Seg Neutrophils # 8.9 H Seg Neutrophils # Man Lymphocytes # (Manual) Monocytes # (Manual) Eosinophils # (Manual) PT INR Fibrinogen dRVVT Confirm Interp Factor V Activity POC ABG pH POC ABG pCO2 POC ABG pO2 ABG pO2 ABG HCO3 ABG Hemoglobin Oxyhemoglobin Sodium 135 L Potassium 2.9 L* Chloride 97.2 L Carbon Dioxide 19 L BUN Creatinine 1.7 H Glucose 170 H POC Glucose 152 H Lactic Acid Calcium Phosphorus Magnesium Direct Bilirubin AST ALT Alkaline Phosphatase Lactate Dehydrogenase Troponin T C-Reactive Protein Total Protein Albumin Prealbumin Triglycerides 160 H Cholesterol LDL Cholesterol Direct HDL Cholesterol 31 L Urine pH Urine WBC (Auto) Urine Creatinine Urine Total Protein Fluid Total Protein Vancomycin Trough Rheumatoid Factor Complement C4 Miscellaneous Test Crossmatch 09/04/16 09/04/16 09/04/16 11:34 17:46 23:29 WBC RBC Hgb Hct MCV MCH MCHC RDW Plt Count Lymph % (Auto) [place] % (Auto) Lymph # [place] # Baso # Seg Neutrophils % Seg Neuts % (Manual) Lymphocytes % (Manual) Monocytes % (Manual) Eosinophils % (Manual) Basophils % (Manual) Nucleated RBC % Seg Neutrophils # Seg Neutrophils # Man Lymphocytes # (Manual) Monocytes # (Manual) Eosinophils # (Manual) PT INR Fibrinogen dRVVT Confirm Interp Factor V Activity POC ABG pH POC ABG pCO2 POC ABG pO2 ABG pO2 ABG HCO3 ABG Hemoglobin Oxyhemoglobin Sodium Potassium Chloride Carbon Dioxide BUN Creatinine Glucose POC Glucose 165 H 210 H 139 H Lactic Acid Calcium Phosphorus Magnesium Direct Bilirubin AST ALT Alkaline Phosphatase Lactate Dehydrogenase Troponin T C-Reactive Protein Total Protein Albumin Prealbumin Triglycerides Cholesterol LDL Cholesterol Direct HDL Cholesterol Urine pH Urine WBC (Auto) Urine Creatinine Urine Total Protein Fluid Total Protein Vancomycin Trough Rheumatoid Factor Complement C4 Miscellaneous Test Crossmatch 09/05/16 09/05/16 09/05/16 04:05 04:05 05:38 WBC RBC Hgb Hct MCV 76 L D MCH 23 L MCHC RDW 17.8 H Plt Count Lymph % (Auto) [place] % (Auto) Lymph # [place] # Baso # Seg Neutrophils % Seg Neuts % (Manual) Lymphocytes % (Manual) Monocytes % (Manual) Eosinophils % (Manual) Basophils % (Manual) Nucleated RBC % Seg Neutrophils # Seg Neutrophils # Man Lymphocytes # (Manual) Monocytes # (Manual) Eosinophils # (Manual) PT INR Fibrinogen dRVVT Confirm Interp Factor V Activity POC ABG pH POC ABG pCO2 POC ABG pO2 ABG pO2 ABG HCO3 ABG Hemoglobin Oxyhemoglobin Sodium 134 L Potassium Chloride Carbon Dioxide 18 L BUN Creatinine 1.8 H Glucose 192 H POC Glucose 175 H Lactic Acid Calcium Phosphorus Magnesium Direct Bilirubin AST ALT Alkaline Phosphatase Lactate Dehydrogenase Troponin T C-Reactive Protein Total Protein Albumin Prealbumin Triglycerides Cholesterol LDL Cholesterol Direct HDL Cholesterol Urine pH Urine WBC (Auto) Urine Creatinine Urine Total Protein Fluid Total Protein Vancomycin Trough Rheumatoid Factor Complement C4 Miscellaneous Test Crossmatch 09/05/16 09/05/16 09/05/16 11:38 17:48 23:22 WBC RBC Hgb Hct MCV MCH MCHC RDW Plt Count Lymph % (Auto) [place] % (Auto) Lymph # [place] # Baso # Seg Neutrophils % Seg Neuts % (Manual) Lymphocytes % (Manual) Monocytes % (Manual) Eosinophils % (Manual) Basophils % (Manual) Nucleated RBC % Seg Neutrophils # Seg Neutrophils # Man Lymphocytes # (Manual) Monocytes # (Manual) Eosinophils # (Manual) PT INR Fibrinogen dRVVT Confirm Interp Factor V Activity POC ABG pH POC ABG pCO2 POC ABG pO2 ABG pO2 ABG HCO3 ABG Hemoglobin Oxyhemoglobin Sodium Potassium Chloride Carbon Dioxide BUN Creatinine Glucose POC Glucose 164 H 186 H 195 H Lactic Acid Calcium Phosphorus Magnesium Direct Bilirubin AST ALT Alkaline Phosphatase Lactate Dehydrogenase Troponin T C-Reactive Protein Total Protein Albumin Prealbumin Triglycerides Cholesterol LDL Cholesterol Direct HDL Cholesterol Urine pH Urine WBC (Auto) Urine Creatinine Urine Total Protein Fluid Total Protein Vancomycin Trough Rheumatoid Factor Complement C4 Miscellaneous Test Crossmatch 09/06/16 09/06/16 09/06/16 04:12 05:59 07:32 WBC RBC Hgb Hct MCV MCH MCHC RDW Plt Count Lymph % (Auto) [place] % (Auto) Lymph # [place] # Baso # Seg Neutrophils % Seg Neuts % (Manual) Lymphocytes % (Manual) Monocytes % (Manual) Eosinophils % (Manual) Basophils % (Manual) Nucleated RBC % Seg Neutrophils # Seg Neutrophils # Man Lymphocytes # (Manual) Monocytes # (Manual) Eosinophils # (Manual) PT INR Fibrinogen dRVVT Confirm Interp Factor V Activity POC ABG pH 7.514 H POC ABG pCO2 29.1 L POC ABG pO2 72 L ABG pO2 ABG HCO3 ABG Hemoglobin Oxyhemoglobin Sodium 133 L Potassium 3.4 L Chloride 94.9 L Carbon Dioxide 19 L BUN 30 H Creatinine 2.1 H Glucose 139 H POC Glucose 146 H Lactic Acid Calcium Phosphorus Magnesium Direct Bilirubin AST ALT Alkaline Phosphatase Lactate Dehydrogenase Troponin T C-Reactive Protein Total Protein Albumin Prealbumin Triglycerides Cholesterol LDL Cholesterol Direct HDL Cholesterol Urine pH Urine WBC (Auto) Urine Creatinine Urine Total Protein Fluid Total Protein Vancomycin Trough Rheumatoid Factor Complement C4 Miscellaneous Test Crossmatch 09/06/16 09/06/16 09/06/16 11:57 17:58 19:02 WBC RBC Hgb Hct MCV MCH MCHC RDW Plt Count Lymph % (Auto) [place] % (Auto) Lymph # [place] # Baso # Seg Neutrophils % Seg Neuts % (Manual) Lymphocytes % (Manual) Monocytes % (Manual) Eosinophils % (Manual) Basophils % (Manual) Nucleated RBC % Seg Neutrophils # Seg Neutrophils # Man Lymphocytes # (Manual) Monocytes # (Manual) Eosinophils # (Manual) PT INR Fibrinogen dRVVT Confirm Interp Factor V Activity POC ABG pH 7.465 H POC ABG pCO2 32.0 L POC ABG pO2 ABG pO2 ABG HCO3 ABG Hemoglobin Oxyhemoglobin Sodium Potassium Chloride Carbon Dioxide BUN Creatinine Glucose POC Glucose 165 H 160 H Lactic Acid Calcium Phosphorus Magnesium Direct Bilirubin AST ALT Alkaline Phosphatase Lactate Dehydrogenase Troponin T C-Reactive Protein Total Protein Albumin Prealbumin Triglycerides Cholesterol LDL Cholesterol Direct HDL Cholesterol Urine pH Urine WBC (Auto) Urine Creatinine Urine Total Protein Fluid Total Protein Vancomycin Trough Rheumatoid Factor Complement C4 Miscellaneous Test Crossmatch 09/06/16 09/07/16 09/07/16 23:45 02:47 02:47 WBC RBC Hgb Hct MCV MCH MCHC RDW Plt Count Lymph % (Auto) [place] % (Auto) Lymph # [place] # Baso # Seg Neutrophils % Seg Neuts % (Manual) Lymphocytes % (Manual) Monocytes % (Manual) Eosinophils % (Manual) Basophils % (Manual) Nucleated RBC % Seg Neutrophils # Seg Neutrophils # Man Lymphocytes # (Manual) Monocytes # (Manual) Eosinophils # (Manual) PT INR Fibrinogen dRVVT Confirm Interp Factor V Activity POC ABG pH POC ABG pCO2 POC ABG pO2 ABG pO2 ABG HCO3 ABG Hemoglobin Oxyhemoglobin Sodium Potassium Chloride Carbon Dioxide BUN Creatinine Glucose POC Glucose 204 H Lactic Acid Calcium Phosphorus Magnesium Direct Bilirubin AST ALT Alkaline Phosphatase Lactate Dehydrogenase Troponin T C-Reactive Protein Total Protein Albumin Prealbumin Triglycerides Cholesterol LDL Cholesterol Direct HDL Cholesterol Urine pH Urine WBC (Auto) 68.0 H Urine Creatinine 106.1 H Urine Total Protein Fluid Total Protein Vancomycin Trough Rheumatoid Factor Complement C4 Miscellaneous Test Crossmatch 09/07/16 09/07/16 09/07/16 04:50 06:19 06:39 WBC RBC Hgb Hct MCV MCH MCHC RDW Plt Count Lymph % (Auto) [place] % (Auto) Lymph # [place] # Baso # Seg Neutrophils % Seg Neuts % (Manual) Lymphocytes % (Manual) Monocytes % (Manual) Eosinophils % (Manual) Basophils % (Manual) Nucleated RBC % Seg Neutrophils # Seg Neutrophils # Man Lymphocytes # (Manual) Monocytes # (Manual) Eosinophils # (Manual) PT INR Fibrinogen dRVVT Confirm Interp Factor V Activity POC ABG pH 7.457 H POC ABG pCO2 32.1 L POC ABG pO2 76 L ABG pO2 ABG HCO3 ABG Hemoglobin Oxyhemoglobin Sodium 132 L Potassium Chloride 94.7 L Carbon Dioxide BUN 53 H Creatinine 2.9 H Glucose 151 H POC Glucose 149 H Lactic Acid Calcium Phosphorus Magnesium Direct Bilirubin AST ALT Alkaline Phosphatase Lactate Dehydrogenase Troponin T C-Reactive Protein Total Protein Albumin Prealbumin Triglycerides Cholesterol LDL Cholesterol Direct HDL Cholesterol Urine pH Urine WBC (Auto) Urine Creatinine Urine Total Protein Fluid Total Protein Vancomycin Trough Rheumatoid Factor Complement C4 Miscellaneous Test Crossmatch 09/07/16 09/07/16 09/07/16 09:20 11:43 11:43 WBC 19.4 H RBC Hgb 8.3 L Hct 26.4 L D MCV 72 L D MCH 22 L MCHC RDW 17.9 H Plt Count Lymph % (Auto) 8.5 L [place] % (Auto) Lymph # [place] # 1.0 H Baso # Seg Neutrophils % 85.8 H Seg Neuts % (Manual) Lymphocytes % (Manual) Monocytes % (Manual) Eosinophils % (Manual) Basophils % (Manual) Nucleated RBC % Seg Neutrophils # 16.6 H Seg Neutrophils # Man Lymphocytes # (Manual) Monocytes # (Manual) Eosinophils # (Manual) PT INR Fibrinogen dRVVT Confirm Interp Factor V Activity POC ABG pH POC ABG pCO2 POC ABG pO2 ABG pO2 ABG HCO3 ABG Hemoglobin Oxyhemoglobin Sodium 134 L Potassium Chloride 97.2 L Carbon Dioxide 20 L BUN 58 H Creatinine 2.9 H Glucose 147 H POC Glucose Lactic Acid Calcium Phosphorus 2.40 L Magnesium 2.40 H Direct Bilirubin AST ALT Alkaline Phosphatase Lactate Dehydrogenase Troponin T C-Reactive Protein Total Protein 5.8 L Albumin 2.2 L Prealbumin Triglycerides Cholesterol LDL Cholesterol Direct HDL Cholesterol Urine pH Urine WBC (Auto) Urine Creatinine Urine Total Protein Fluid Total Protein Vancomycin Trough Rheumatoid Factor Complement C4 58 H Miscellaneous Test Crossmatch 09/07/16 09/07/16 09/07/16 11:50 16:00 17:31 WBC RBC Hgb Hct MCV MCH MCHC RDW Plt Count Lymph % (Auto) [place] % (Auto) Lymph # [place] # Baso # Seg Neutrophils % Seg Neuts % (Manual) Lymphocytes % (Manual) Monocytes % (Manual) Eosinophils % (Manual) Basophils % (Manual) Nucleated RBC % Seg Neutrophils # Seg Neutrophils # Man Lymphocytes # (Manual) Monocytes # (Manual) Eosinophils # (Manual) PT INR Fibrinogen dRVVT Confirm Interp Factor V Activity POC ABG pH POC ABG pCO2 POC ABG pO2 158 H ABG pO2 ABG HCO3 ABG Hemoglobin Oxyhemoglobin Sodium Potassium Chloride Carbon Dioxide BUN Creatinine Glucose POC Glucose 175 H Lactic Acid Calcium Phosphorus Magnesium Direct Bilirubin AST ALT Alkaline Phosphatase Lactate Dehydrogenase Troponin T C-Reactive Protein Total Protein Albumin Prealbumin Triglycerides Cholesterol LDL Cholesterol Direct HDL Cholesterol Urine pH Urine WBC (Auto) Urine Creatinine 66.3 H Urine Total Protein Fluid Total Protein Vancomycin Trough Rheumatoid Factor Complement C4 Miscellaneous Test Crossmatch 09/07/16 09/08/16 09/08/16 23:50 05:46 06:18 WBC 17.8 H RBC 3.58 L Hgb 8.1 L Hct 25.5 L MCV 71 L MCH 23 L MCHC RDW 18.4 H Plt Count Lymph % (Auto) [place] % (Auto) Lymph # [place] # Baso # Seg Neutrophils % Seg Neuts % (Manual) 92.0 H Lymphocytes % (Manual) 6.0 L Monocytes % (Manual) Eosinophils % (Manual) Basophils % (Manual) Nucleated RBC % Seg Neutrophils # Seg Neutrophils # Man 16.4 H Lymphocytes # (Manual) 1.1 L Monocytes # (Manual) Eosinophils # (Manual) PT INR Fibrinogen dRVVT Confirm Interp Factor V Activity POC ABG pH POC ABG pCO2 34.3 L POC ABG pO2 71 L ABG pO2 ABG HCO3 ABG Hemoglobin Oxyhemoglobin Sodium Potassium Chloride Carbon Dioxide BUN Creatinine Glucose POC Glucose 216 H Lactic Acid Calcium Phosphorus Magnesium Direct Bilirubin AST ALT Alkaline Phosphatase Lactate Dehydrogenase Troponin T C-Reactive Protein Total Protein Albumin Prealbumin Triglycerides Cholesterol LDL Cholesterol Direct HDL Cholesterol Urine pH Urine WBC (Auto) Urine Creatinine Urine Total Protein Fluid Total Protein Vancomycin Trough Rheumatoid Factor Complement C4 Miscellaneous Test Crossmatch 09/08/16 09/08/16 09/08/16 06:18 06:51 10:55 WBC RBC Hgb Hct MCV MCH MCHC RDW Plt Count Lymph % (Auto) [place] % (Auto) Lymph # [place] # Baso # Seg Neutrophils % Seg Neuts % (Manual) Lymphocytes % (Manual) Monocytes % (Manual) Eosinophils % (Manual) Basophils % (Manual) Nucleated RBC % Seg Neutrophils # Seg Neutrophils # Man Lymphocytes # (Manual) Monocytes # (Manual) Eosinophils # (Manual) PT INR Fibrinogen dRVVT Confirm Interp Factor V Activity POC ABG pH POC ABG pCO2 POC ABG pO2 ABG pO2 ABG HCO3 ABG Hemoglobin Oxyhemoglobin Sodium 133 L Potassium Chloride 96.9 L Carbon Dioxide 20 L BUN 63 H Creatinine 2.7 H Glucose 195 H POC Glucose 204 H 169 H Lactic Acid Calcium Phosphorus Magnesium Direct Bilirubin AST ALT Alkaline Phosphatase Lactate Dehydrogenase Troponin T C-Reactive Protein Total Protein Albumin Prealbumin Triglycerides Cholesterol LDL Cholesterol Direct HDL Cholesterol Urine pH Urine WBC (Auto) Urine Creatinine Urine Total Protein Fluid Total Protein Vancomycin Trough Rheumatoid Factor Complement C4 Miscellaneous Test Crossmatch 09/08/16 09/08/1609/08/17 11:48 11:48 11:48 WBC RBC Hgb Hct MCV MCH MCHC RDW Plt Count Lymph % (Auto) [place] % (Auto) Lymph # [place] # Baso # Seg Neutrophils % Seg Neuts % (Manual) Lymphocytes % (Manual) Monocytes % (Manual) Eosinophils % (Manual) Basophils % (Manual) Nucleated RBC % Seg Neutrophils # Seg Neutrophils # Man Lymphocytes # (Manual) Monocytes # (Manual) Eosinophils # (Manual) PT INR Fibrinogen 750 H dRVVT Confirm Interp Factor V Activity POC ABG pH POC ABG pCO2 POC ABG pO2 ABG pO2 ABG HCO3 ABG Hemoglobin Oxyhemoglobin Sodium Potassium Chloride Carbon Dioxide BUN Creatinine Glucose POC Glucose Lactic Acid Calcium Phosphorus Magnesium Direct Bilirubin AST ALT Alkaline Phosphatase Lactate Dehydrogenase Troponin T C-Reactive Protein 15.70 H Total Protein Albumin Prealbumin Triglycerides Cholesterol LDL Cholesterol Direct HDL Cholesterol Urine pH Urine WBC (Auto) Urine Creatinine Urine Total Protein Fluid Total Protein Vancomycin Trough Rheumatoid Factor 24 H Complement C4 Miscellaneous Test Crossmatch 09/08/16 09/08/16 09/09/16 15:35 18:25 00:24 WBC RBC Hgb Hct MCV MCH MCHC RDW Plt Count Lymph % (Auto) [place] % (Auto) Lymph # [place] # Baso # Seg Neutrophils % Seg Neuts % (Manual) Lymphocytes % (Manual) Monocytes % (Manual) Eosinophils % (Manual) Basophils % (Manual) Nucleated RBC % Seg Neutrophils # Seg Neutrophils # Man Lymphocytes # (Manual) Monocytes # (Manual) Eosinophils # (Manual) PT INR Fibrinogen dRVVT Confirm Interp Factor V Activity 182 H POC ABG pH POC ABG pCO2 POC ABG pO2 ABG pO2 ABG HCO3 ABG Hemoglobin Oxyhemoglobin Sodium Potassium Chloride Carbon Dioxide BUN Creatinine Glucose POC Glucose 184 H 216 H Lactic Acid Calcium Phosphorus Magnesium Direct Bilirubin AST ALT Alkaline Phosphatase Lactate Dehydrogenase Troponin T C-Reactive Protein Total Protein Albumin Prealbumin Triglycerides Cholesterol LDL Cholesterol Direct HDL Cholesterol Urine pH Urine WBC (Auto) Urine Creatinine Urine Total Protein Fluid Total Protein Vancomycin Trough Rheumatoid Factor Complement C4 Miscellaneous Test Crossmatch 09/09/16 09/09/16 09/09/16 03:00 03:00 04:04 WBC 27.9 H RBC Hgb 8.7 L Hct 28.1 L MCV 72 L MCH 22 L MCHC RDW 18.4 H Plt Count 485 H Lymph % (Auto) [place] % (Auto) Lymph # [place] # Baso # Seg Neutrophils % Seg Neuts % (Manual) 77.0 H Lymphocytes % (Manual) 9.0 L Monocytes % (Manual) Eosinophils % (Manual) Basophils % (Manual) Nucleated RBC % Seg Neutrophils # Seg Neutrophils # Man 21.5 H Lymphocytes # (Manual) Monocytes # (Manual) 2.0 H Eosinophils # (Manual) PT INR Fibrinogen dRVVT Confirm Interp Factor V Activity POC ABG pH POC ABG pCO2 POC ABG pO2 121 H ABG pO2 ABG HCO3 ABG Hemoglobin Oxyhemoglobin Sodium 135 L Potassium Chloride 96.3 L Carbon Dioxide 21 L BUN 83 H Creatinine 3.0 H Glucose 135 H POC Glucose Lactic Acid Calcium Phosphorus Magnesium Direct Bilirubin AST ALT Alkaline Phosphatase Lactate Dehydrogenase Troponin T C-Reactive Protein Total Protein Albumin Prealbumin Triglycerides Cholesterol LDL Cholesterol Direct HDL Cholesterol Urine pH Urine WBC (Auto) Urine Creatinine Urine Total Protein Fluid Total Protein Vancomycin Trough Rheumatoid Factor Complement C4 Miscellaneous Test Crossmatch 09/09/16 09/09/16 09/09/16 05:41 11:55 14:13 WBC RBC Hgb Hct MCV MCH MCHC RDW Plt Count Lymph % (Auto) [place] % (Auto) Lymph # [place] # Baso # Seg Neutrophils % Seg Neuts % (Manual) Lymphocytes % (Manual) Monocytes % (Manual) Eosinophils % (Manual) Basophils % (Manual) Nucleated RBC % Seg Neutrophils # Seg Neutrophils # Man Lymphocytes # (Manual) Monocytes # (Manual) Eosinophils # (Manual) PT INR Fibrinogen dRVVT Confirm Interp Factor V Activity POC ABG pH POC ABG pCO2 POC ABG pO2 ABG pO2 ABG HCO3 ABG Hemoglobin Oxyhemoglobin Sodium Potassium Chloride Carbon Dioxide BUN Creatinine Glucose POC Glucose 155 H 186 H Lactic Acid Calcium Phosphorus Magnesium Direct Bilirubin AST ALT Alkaline Phosphatase Lactate Dehydrogenase Troponin T C-Reactive Protein Total Protein Albumin Prealbumin Triglycerides Cholesterol LDL Cholesterol Direct HDL Cholesterol Urine pH Urine WBC (Auto) 25.0 H Urine Creatinine Urine Total Protein Fluid Total Protein Vancomycin Trough Rheumatoid Factor Complement C4 Miscellaneous Test Crossmatch 09/09/16 09/09/16 09/10/16 17:33 23:13 05:09 WBC RBC Hgb Hct MCV MCH MCHC RDW Plt Count Lymph % (Auto) [place] % (Auto) Lymph # [place] # Baso # Seg Neutrophils % Seg Neuts % (Manual) Lymphocytes % (Manual) Monocytes % (Manual) Eosinophils % (Manual) Basophils % (Manual) Nucleated RBC % Seg Neutrophils # Seg Neutrophils # Man Lymphocytes # (Manual) Monocytes # (Manual) Eosinophils # (Manual) PT INR Fibrinogen dRVVT Confirm Interp Factor V Activity POC ABG pH POC ABG pCO2 POC ABG pO2 74 L ABG pO2 ABG HCO3 ABG Hemoglobin Oxyhemoglobin Sodium Potassium Chloride Carbon Dioxide BUN Creatinine Glucose POC Glucose 211 H 215 H Lactic Acid Calcium Phosphorus Magnesium Direct Bilirubin AST ALT Alkaline Phosphatase Lactate Dehydrogenase Troponin T C-Reactive Protein Total Protein Albumin Prealbumin Triglycerides Cholesterol LDL Cholesterol Direct HDL Cholesterol Urine pH Urine WBC (Auto) Urine Creatinine Urine Total Protein Fluid Total Protein Vancomycin Trough Rheumatoid Factor Complement C4 Miscellaneous Test Crossmatch 09/10/16 09/10/16 09/10/16 05:17 05:17 11:31 WBC 15.8 H RBC 3.25 L Hgb 7.3 L Hct 22.9 L MCV 71 L MCH 23 L MCHC RDW 18.4 H Plt Count Lymph % (Auto) [place] % (Auto) Lymph # [place] # Baso # Seg Neutrophils % Seg Neuts % (Manual) 91.0 H Lymphocytes % (Manual) 4.0 L Monocytes % (Manual) Eosinophils % (Manual) Basophils % (Manual) Nucleated RBC % Seg Neutrophils # Seg Neutrophils # Man 14.4 H Lymphocytes # (Manual) 0.6 L Monocytes # (Manual) Eosinophils # (Manual) PT INR Fibrinogen dRVVT Confirm Interp Factor V Activity POC ABG pH POC ABG pCO2 POC ABG pO2 ABG pO2 ABG HCO3 ABG Hemoglobin Oxyhemoglobin Sodium Potassium Chloride Carbon Dioxide 21 L BUN 93 H Creatinine 2.9 H Glucose 146 H POC Glucose 188 H Lactic Acid Calcium 8.1 L Phosphorus Magnesium Direct Bilirubin AST ALT Alkaline Phosphatase Lactate Dehydrogenase Troponin T C-Reactive Protein Total Protein Albumin Prealbumin Triglycerides Cholesterol LDL Cholesterol Direct HDL Cholesterol Urine pH Urine WBC (Auto) Urine Creatinine Urine Total Protein Fluid Total Protein Vancomycin Trough Rheumatoid Factor Complement C4 Miscellaneous Test Crossmatch 09/10/16 09/10/16 09/10/16 13:17 17:20 23:32 WBC RBC Hgb Hct MCV MCH MCHC RDW Plt Count Lymph % (Auto) [place] % (Auto) Lymph # [place] # Baso # Seg Neutrophils % Seg Neuts % (Manual) Lymphocytes % (Manual) Monocytes % (Manual) Eosinophils % (Manual) Basophils % (Manual) Nucleated RBC % Seg Neutrophils # Seg Neutrophils # Man Lymphocytes # (Manual) Monocytes # (Manual) Eosinophils # (Manual) PT INR Fibrinogen dRVVT Confirm Interp Factor V Activity POC ABG pH POC ABG pCO2 POC ABG pO2 ABG pO2 ABG HCO3 ABG Hemoglobin Oxyhemoglobin Sodium Potassium Chloride Carbon Dioxide BUN Creatinine Glucose POC Glucose 199 H 186 H Lactic Acid Calcium Phosphorus Magnesium Direct Bilirubin AST ALT Alkaline Phosphatase Lactate Dehydrogenase Troponin T C-Reactive Protein Total Protein Albumin Prealbumin Triglycerides Cholesterol LDL Cholesterol Direct HDL Cholesterol Urine pH Urine WBC (Auto) Urine Creatinine Urine Total Protein Fluid Total Protein Vancomycin Trough Rheumatoid Factor Complement C4 Miscellaneous Test Crossmatch See Detail 09/11/16 09/11/16 09/11/16 05:10 05:10 05:17 WBC 28.4 H RBC Hgb 9.2 L Hct 29.3 L D MCV 73 L MCH 23 L MCHC RDW 18.9 H Plt Count 452 H Lymph % (Auto) [place] % (Auto) Lymph # [place] # Baso # Seg Neutrophils % Seg Neuts % (Manual) 89.5 H Lymphocytes % (Manual) 2.0 L Monocytes % (Manual) Eosinophils % (Manual) Basophils % (Manual) Nucleated RBC % Seg Neutrophils # Seg Neutrophils # Man 25.4 H Lymphocytes # (Manual) 0.6 L Monocytes # (Manual) 1.3 H Eosinophils # (Manual) PT INR Fibrinogen dRVVT Confirm Interp Factor V Activity POC ABG pH POC ABG pCO2 POC ABG pO2 ABG pO2 ABG HCO3 ABG Hemoglobin Oxyhemoglobin Sodium 136 L Potassium Chloride Carbon Dioxide 18 L BUN 107 H Creatinine 2.6 H Glucose 187 H POC Glucose 230 H Lactic Acid Calcium 8.3 L Phosphorus Magnesium Direct Bilirubin AST ALT Alkaline Phosphatase Lactate Dehydrogenase Troponin T C-Reactive Protein Total Protein Albumin Prealbumin Triglycerides Cholesterol LDL Cholesterol Direct HDL Cholesterol Urine pH Urine WBC (Auto) Urine Creatinine Urine Total Protein Fluid Total Protein Vancomycin Trough Rheumatoid Factor Complement C4 Miscellaneous Test Crossmatch 09/11/16 09/11/16 09/11/16 05:55 12:02 17:32 WBC RBC Hgb Hct MCV MCH MCHC RDW Plt Count Lymph % (Auto) [place] % (Auto) Lymph # [place] # Baso # Seg Neutrophils % Seg Neuts % (Manual) Lymphocytes % (Manual) Monocytes % (Manual) Eosinophils % (Manual) Basophils % (Manual) Nucleated RBC % Seg Neutrophils # Seg Neutrophils # Man Lymphocytes # (Manual) Monocytes # (Manual) Eosinophils # (Manual) PT INR Fibrinogen dRVVT Confirm Interp Factor V Activity POC ABG pH POC ABG pCO2 33.8 L POC ABG pO2 ABG pO2 ABG HCO3 ABG Hemoglobin Oxyhemoglobin Sodium Potassium Chloride Carbon Dioxide BUN Creatinine Glucose POC Glucose 191 H 239 H Lactic Acid Calcium Phosphorus Magnesium Direct Bilirubin AST ALT Alkaline Phosphatase Lactate Dehydrogenase Troponin T C-Reactive Protein Total Protein Albumin Prealbumin Triglycerides Cholesterol LDL Cholesterol Direct HDL Cholesterol Urine pH Urine WBC (Auto) Urine Creatinine Urine Total Protein Fluid Total Protein Vancomycin Trough Rheumatoid Factor Complement C4 Miscellaneous Test Crossmatch 09/11/16 09/12/16 09/12/16 23:52 05:09 05:32 WBC RBC Hgb Hct MCV MCH MCHC RDW Plt Count Lymph % (Auto) [place] % (Auto) Lymph # [place] # Baso # Seg Neutrophils % Seg Neuts % (Manual) Lymphocytes % (Manual) Monocytes % (Manual) Eosinophils % (Manual) Basophils % (Manual) Nucleated RBC % Seg Neutrophils # Seg Neutrophils # Man Lymphocytes # (Manual) Monocytes # (Manual) Eosinophils # (Manual) PT INR Fibrinogen dRVVT Confirm Interp Factor V Activity POC ABG pH POC ABG pCO2 34.6 L POC ABG pO2 ABG pO2 ABG HCO3 ABG Hemoglobin Oxyhemoglobin Sodium Potassium Chloride Carbon Dioxide BUN Creatinine Glucose POC Glucose 265 H 184 H Lactic Acid Calcium Phosphorus Magnesium Direct Bilirubin AST ALT Alkaline Phosphatase Lactate Dehydrogenase Troponin T C-Reactive Protein Total Protein Albumin Prealbumin Triglycerides Cholesterol LDL Cholesterol Direct HDL Cholesterol Urine pH Urine WBC (Auto) Urine Creatinine Urine Total Protein Fluid Total Protein Vancomycin Trough Rheumatoid Factor Complement C4 Miscellaneous Test Crossmatch 09/12/16 09/12/16 09/12/16 06:45 06:45 07:22 WBC 31.7 H RBC 3.54 L Hgb 8.3 L Hct 25.9 L MCV 73 L MCH 23 L MCHC RDW 18.9 H Plt Count Lymph % (Auto) [place] % (Auto) Lymph # [place] # Baso # Seg Neutrophils % Seg Neuts % (Manual) 88.5 H Lymphocytes % (Manual) 4.5 L Monocytes % (Manual) Eosinophils % (Manual) Basophils % (Manual) Nucleated RBC % Seg Neutrophils # Seg Neutrophils # Man 28.1 H Lymphocytes # (Manual) Monocytes # (Manual) 1.0 H Eosinophils # (Manual) PT INR Fibrinogen dRVVT Confirm Interp Factor V Activity POC ABG pH POC ABG pCO2 POC ABG pO2 ABG pO2 ABG HCO3 ABG Hemoglobin Oxyhemoglobin Sodium Potassium Chloride Carbon Dioxide 20 L BUN 115 H Creatinine 2.7 H Glucose 165 H POC Glucose Lactic Acid Calcium 8.0 L Phosphorus Magnesium Direct Bilirubin AST ALT Alkaline Phosphatase Lactate Dehydrogenase Troponin T C-Reactive Protein Total Protein Albumin Prealbumin Triglycerides 217 H Cholesterol LDL Cholesterol Direct HDL Cholesterol Urine pH Urine WBC (Auto) Urine Creatinine Urine Total Protein Fluid Total Protein Vancomycin Trough Rheumatoid Factor Complement C4 Miscellaneous Test Crossmatch 09/12/16 09/12/16 09/12/16 07:22 09:59 12:21 WBC RBC Hgb Hct MCV MCH MCHC RDW Plt Count Lymph % (Auto) [place] % (Auto) Lymph # [place] # Baso # Seg Neutrophils % Seg Neuts % (Manual) Lymphocytes % (Manual) Monocytes % (Manual) Eosinophils % (Manual) Basophils % (Manual) Nucleated RBC % Seg Neutrophils # Seg Neutrophils # Man Lymphocytes # (Manual) Monocytes # (Manual) Eosinophils # (Manual) PT INR Fibrinogen dRVVT Confirm Interp Positive H Factor V Activity POC ABG pH POC ABG pCO2 POC ABG pO2 ABG pO2 ABG HCO3 ABG Hemoglobin Oxyhemoglobin Sodium Potassium Chloride Carbon Dioxide BUN Creatinine Glucose POC Glucose 224 H Lactic Acid Calcium Phosphorus Magnesium Direct Bilirubin AST ALT Alkaline Phosphatase Lactate Dehydrogenase Troponin T C-Reactive Protein 1.70 H Total Protein Albumin Prealbumin Triglycerides Cholesterol LDL Cholesterol Direct HDL Cholesterol Urine pH Urine WBC (Auto) Urine Creatinine Urine Total Protein Fluid Total Protein Vancomycin Trough Rheumatoid Factor Complement C4 Miscellaneous Test Crossmatch 09/12/16 09/12/16 09/13/16 16:51 23:28 04:00 WBC 45.0 H* RBC Hgb 9.4 L Hct MCV 75 L MCH 23 L MCHC RDW 19.0 H Plt Count 470 H Lymph % (Auto) [place] % (Auto) Lymph # [place] # Baso # Seg Neutrophils % Seg Neuts % (Manual) 89.0 H Lymphocytes % (Manual) 5.0 L Monocytes % (Manual) Eosinophils % (Manual) Basophils % (Manual) Nucleated RBC % Seg Neutrophils # Seg Neutrophils # Man 40.1 H Lymphocytes # (Manual) Monocytes # (Manual) Eosinophils # (Manual) PT INR Fibrinogen dRVVT Confirm Interp Factor V Activity POC ABG pH POC ABG pCO2 POC ABG pO2 ABG pO2 ABG HCO3 ABG Hemoglobin Oxyhemoglobin Sodium Potassium Chloride Carbon Dioxide BUN Creatinine Glucose POC Glucose 169 H 150 H Lactic Acid Calcium Phosphorus Magnesium Direct Bilirubin AST ALT Alkaline Phosphatase Lactate Dehydrogenase Troponin T C-Reactive Protein Total Protein Albumin Prealbumin Triglycerides Cholesterol LDL Cholesterol Direct HDL Cholesterol Urine pH Urine WBC (Auto) Urine Creatinine Urine Total Protein Fluid Total Protein Vancomycin Trough Rheumatoid Factor Complement C4 Miscellaneous Test Crossmatch 09/13/16 09/13/16 09/13/16 04:00 11:26 17:31 WBC RBC Hgb Hct MCV MCH MCHC RDW Plt Count Lymph % (Auto) [place] % (Auto) Lymph # [place] # Baso # Seg Neutrophils % Seg Neuts % (Manual) Lymphocytes % (Manual) Monocytes % (Manual) Eosinophils % (Manual) Basophils % (Manual) Nucleated RBC % Seg Neutrophils # Seg Neutrophils # Man Lymphocytes # (Manual) Monocytes # (Manual) Eosinophils # (Manual) PT INR Fibrinogen dRVVT Confirm Interp Factor V Activity POC ABG pH POC ABG pCO2 POC ABG pO2 ABG pO2 ABG HCO3 ABG Hemoglobin Oxyhemoglobin Sodium Potassium Chloride Carbon Dioxide 20 L BUN 116 H Creatinine 3.0 H Glucose 172 H POC Glucose 140 H 183 H Lactic Acid Calcium Phosphorus Magnesium Direct Bilirubin AST ALT Alkaline Phosphatase Lactate Dehydrogenase Troponin T C-Reactive Protein Total Protein 6.2 L Albumin 2.9 L Prealbumin Triglycerides Cholesterol LDL Cholesterol Direct HDL Cholesterol Urine pH Urine WBC (Auto) Urine Creatinine Urine Total Protein Fluid Total Protein Vancomycin Trough Rheumatoid Factor Complement C4 Miscellaneous Test Crossmatch 09/13/16 09/14/16 09/14/16 23:23 04:06 04:07 WBC 29.4 H RBC Hgb 8.9 L Hct 27.3 L MCV 75 L MCH 24 L MCHC RDW 19.1 H Plt Count Lymph % (Auto) [place] % (Auto) Lymph # [place] # Baso # Seg Neutrophils % Seg Neuts % (Manual) 84.0 H Lymphocytes % (Manual) 6.0 L Monocytes % (Manual) 9.0 H Eosinophils % (Manual) Basophils % (Manual) Nucleated RBC % Seg Neutrophils # Seg Neutrophils # Man 24.7 H Lymphocytes # (Manual) Monocytes # (Manual) 2.6 H Eosinophils # (Manual) PT INR Fibrinogen dRVVT Confirm Interp Factor V Activity POC ABG pH 7.342 L POC ABG pCO2 POC ABG pO2 116 H ABG pO2 ABG HCO3 ABG Hemoglobin Oxyhemoglobin Sodium Potassium Chloride Carbon Dioxide BUN Creatinine Glucose POC Glucose 154 H Lactic Acid Calcium Phosphorus Magnesium Direct Bilirubin AST ALT Alkaline Phosphatase Lactate Dehydrogenase Troponin T C-Reactive Protein Total Protein Albumin Prealbumin Triglycerides Cholesterol LDL Cholesterol Direct HDL Cholesterol Urine pH Urine WBC (Auto) Urine Creatinine Urine Total Protein Fluid Total Protein Vancomycin Trough Rheumatoid Factor Complement C4 Miscellaneous Test Crossmatch 09/14/16 09/14/16 09/14/16 04:07 05:29 12:19 WBC RBC Hgb Hct MCV MCH MCHC RDW Plt Count Lymph % (Auto) [place] % (Auto) Lymph # [place] # Baso # Seg Neutrophils % Seg Neuts % (Manual) Lymphocytes % (Manual) Monocytes % (Manual) Eosinophils % (Manual) Basophils % (Manual) Nucleated RBC % Seg Neutrophils # Seg Neutrophils # Man Lymphocytes # (Manual) Monocytes # (Manual) Eosinophils # (Manual) PT INR Fibrinogen dRVVT Confirm Interp Factor V Activity POC ABG pH POC ABG pCO2 POC ABG pO2 ABG pO2 ABG HCO3 ABG Hemoglobin Oxyhemoglobin Sodium 136 L Potassium Chloride Carbon Dioxide 18 L BUN 121 H Creatinine 2.8 H Glucose 214 H POC Glucose 239 H 181 H Lactic Acid Calcium Phosphorus Magnesium Direct Bilirubin AST ALT Alkaline Phosphatase Lactate Dehydrogenase Troponin T C-Reactive Protein Total Protein Albumin Prealbumin Triglycerides Cholesterol LDL Cholesterol Direct HDL Cholesterol Urine pH Urine WBC (Auto) Urine Creatinine Urine Total Protein Fluid Total Protein Vancomycin Trough Rheumatoid Factor Complement C4 Miscellaneous Test Crossmatch 09/14/16 09/14/16 09/15/16 18:12 23:37 05:00 WBC 26.1 H RBC 3.05 L Hgb 7.2 L Hct 22.9 L MCV 75 L MCH 24 L MCHC RDW 19.0 H Plt Count Lymph % (Auto) [place] % (Auto) Lymph # [place] # Baso # Seg Neutrophils % Seg Neuts % (Manual) Lymphocytes % (Manual) Monocytes % (Manual) Eosinophils % (Manual) Basophils % (Manual) Nucleated RBC % Seg Neutrophils # Seg Neutrophils # Man Lymphocytes # (Manual) Monocytes # (Manual) Eosinophils # (Manual) PT INR Fibrinogen dRVVT Confirm Interp Factor V Activity POC ABG pH POC ABG pCO2 POC ABG pO2 ABG pO2 ABG HCO3 ABG Hemoglobin Oxyhemoglobin Sodium Potassium Chloride Carbon Dioxide BUN Creatinine Glucose POC Glucose 266 H 154 H Lactic Acid Calcium Phosphorus Magnesium Direct Bilirubin AST ALT Alkaline Phosphatase Lactate Dehydrogenase Troponin T C-Reactive Protein Total Protein Albumin Prealbumin Triglycerides Cholesterol LDL Cholesterol Direct HDL Cholesterol Urine pH Urine WBC (Auto) Urine Creatinine Urine Total Protein Fluid Total Protein Vancomycin Trough Rheumatoid Factor Complement C4 Miscellaneous Test Crossmatch 09/15/16 09/15/16 09/15/16 05:00 05:17 12:45 WBC RBC Hgb Hct MCV MCH MCHC RDW Plt Count Lymph % (Auto) [place] % (Auto) Lymph # [place] # Baso # Seg Neutrophils % Seg Neuts % (Manual) Lymphocytes % (Manual) Monocytes % (Manual) Eosinophils % (Manual) Basophils % (Manual) Nucleated RBC % Seg Neutrophils # Seg Neutrophils # Man Lymphocytes # (Manual) Monocytes # (Manual) Eosinophils # (Manual) PT INR Fibrinogen dRVVT Confirm Interp Factor V Activity POC ABG pH POC ABG pCO2 POC ABG pO2 ABG pO2 ABG HCO3 ABG Hemoglobin Oxyhemoglobin Sodium Potassium 5.2 H Chloride Carbon Dioxide 18 L BUN 139 H Creatinine 3.7 H Glucose 227 H POC Glucose 226 H 244 H Lactic Acid Calcium 8.3 L Phosphorus Magnesium Direct Bilirubin AST ALT Alkaline Phosphatase Lactate Dehydrogenase Troponin T C-Reactive Protein Total Protein Albumin Prealbumin Triglycerides Cholesterol LDL Cholesterol Direct HDL Cholesterol Urine pH Urine WBC (Auto) Urine Creatinine Urine Total Protein Fluid Total Protein Vancomycin Trough Rheumatoid Factor Complement C4 Miscellaneous Test Crossmatch 09/15/16 09/15/16 09/15/16 14:32 17:33 23:35 WBC RBC Hgb Hct MCV MCH MCHC RDW Plt Count Lymph % (Auto) [place] % (Auto) Lymph # [place] # Baso # Seg Neutrophils % Seg Neuts % (Manual) Lymphocytes % (Manual) Monocytes % (Manual) Eosinophils % (Manual) Basophils % (Manual) Nucleated RBC % Seg Neutrophils # Seg Neutrophils # Man Lymphocytes # (Manual) Monocytes # (Manual) Eosinophils # (Manual) PT INR Fibrinogen dRVVT Confirm Interp Factor V Activity POC ABG pH POC ABG pCO2 27.7 L POC ABG pO2 120 H ABG pO2 ABG HCO3 ABG Hemoglobin Oxyhemoglobin Sodium Potassium Chloride Carbon Dioxide BUN Creatinine Glucose POC Glucose 232 H 167 H Lactic Acid Calcium Phosphorus Magnesium Direct Bilirubin AST ALT Alkaline Phosphatase Lactate Dehydrogenase Troponin T C-Reactive Protein Total Protein Albumin Prealbumin Triglycerides Cholesterol LDL Cholesterol Direct HDL Cholesterol Urine pH Urine WBC (Auto) Urine Creatinine Urine Total Protein Fluid Total Protein Vancomycin Trough Rheumatoid Factor Complement C4 Miscellaneous Test Crossmatch 09/16/16 09/16/16 09/16/16 03:58 10:27 10:27 WBC 19.0 H RBC 2.77 L Hgb 6.5 L Hct 20.9 L MCV 76 L MCH 23 L MCHC RDW 19.3 H Plt Count Lymph % (Auto) 11.0 L [place] % (Auto) Lymph # [place] # 1.1 H Baso # Seg Neutrophils % 82.5 H Seg Neuts % (Manual) Lymphocytes % (Manual) Monocytes % (Manual) Eosinophils % (Manual) Basophils % (Manual) Nucleated RBC % Seg Neutrophils # 15.7 H Seg Neutrophils # Man Lymphocytes # (Manual) Monocytes # (Manual) Eosinophils # (Manual) PT INR Fibrinogen dRVVT Confirm Interp Factor V Activity POC ABG pH POC ABG pCO2 POC ABG pO2 ABG pO2 ABG HCO3 ABG Hemoglobin Oxyhemoglobin Sodium Potassium Chloride 109.3 H Carbon Dioxide 18 L BUN 139 H Creatinine 4.1 H Glucose 144 H POC Glucose 146 H Lactic Acid Calcium 8.1 L Phosphorus Magnesium Direct Bilirubin AST ALT Alkaline Phosphatase Lactate Dehydrogenase Troponin T C-Reactive Protein Total Protein Albumin Prealbumin Triglycerides Cholesterol LDL Cholesterol Direct HDL Cholesterol Urine pH Urine WBC (Auto) Urine Creatinine Urine Total Protein Fluid Total Protein Vancomycin Trough Rheumatoid Factor Complement C4 Miscellaneous Test Crossmatch 09/16/16 09/16/16 09/16/16 12:04 12:10 13:55 WBC RBC Hgb Hct MCV MCH MCHC RDW Plt Count Lymph % (Auto) [place] % (Auto) Lymph # [place] # Baso # Seg Neutrophils % Seg Neuts % (Manual) Lymphocytes % (Manual) Monocytes % (Manual) Eosinophils % (Manual) Basophils % (Manual) Nucleated RBC % Seg Neutrophils # Seg Neutrophils # Man Lymphocytes # (Manual) Monocytes # (Manual) Eosinophils # (Manual) PT INR Fibrinogen dRVVT Confirm Interp Factor V Activity POC ABG pH POC ABG pCO2 32.9 L POC ABG pO2 ABG pO2 ABG HCO3 ABG Hemoglobin Oxyhemoglobin Sodium Potassium Chloride Carbon Dioxide BUN Creatinine Glucose POC Glucose 185 H Lactic Acid Calcium Phosphorus Magnesium Direct Bilirubin AST ALT Alkaline Phosphatase Lactate Dehydrogenase Troponin T C-Reactive Protein Total Protein Albumin Prealbumin Triglycerides Cholesterol LDL Cholesterol Direct HDL Cholesterol Urine pH Urine WBC (Auto) Urine Creatinine Urine Total Protein Fluid Total Protein Vancomycin Trough Rheumatoid Factor Complement C4 Miscellaneous Test Crossmatch See Detail 09/16/16 09/16/16 09/16/16 17:55 19:19 23:48 WBC RBC Hgb Hct MCV MCH MCHC RDW Plt Count Lymph % (Auto) [place] % (Auto) Lymph # [place] # Baso # Seg Neutrophils % Seg Neuts % (Manual) Lymphocytes % (Manual) Monocytes % (Manual) Eosinophils % (Manual) Basophils % (Manual) Nucleated RBC % Seg Neutrophils # Seg Neutrophils # Man Lymphocytes # (Manual) Monocytes # (Manual) Eosinophils # (Manual) PT INR Fibrinogen dRVVT Confirm Interp Factor V Activity POC ABG pH POC ABG pCO2 POC ABG pO2 ABG pO2 ABG HCO3 ABG Hemoglobin Oxyhemoglobin Sodium Potassium Chloride Carbon Dioxide BUN Creatinine Glucose POC Glucose 222 H 107 H Lactic Acid Calcium Phosphorus Magnesium Direct Bilirubin AST ALT Alkaline Phosphatase Lactate Dehydrogenase Troponin T C-Reactive Protein Total Protein Albumin Prealbumin Triglycerides Cholesterol LDL Cholesterol Direct HDL Cholesterol Urine pH Urine WBC (Auto) Urine Creatinine 47.4 H Urine Total Protein 16 H Fluid Total Protein Vancomycin Trough Rheumatoid Factor Complement C4 Miscellaneous Test Crossmatch 09/17/16 09/17/16 09/17/16 03:45 03:45 04:55 WBC 19.6 H RBC 3.41 L Hgb 8.5 L Hct 26.7 L MCV 78 L MCH 25 L MCHC RDW 19.9 H Plt Count Lymph % (Auto) 9.3 L [place] % (Auto) Lymph # [place] # 1.2 H Baso # Seg Neutrophils % 83.9 H Seg Neuts % (Manual) Lymphocytes % (Manual) Monocytes % (Manual) Eosinophils % (Manual) Basophils % (Manual) Nucleated RBC % Seg Neutrophils # 16.4 H Seg Neutrophils # Man Lymphocytes # (Manual) Monocytes # (Manual) Eosinophils # (Manual) PT INR Fibrinogen dRVVT Confirm Interp Factor V Activity POC ABG pH POC ABG pCO2 POC ABG pO2 ABG pO2 ABG HCO3 ABG Hemoglobin Oxyhemoglobin Sodium 146 H Potassium 5.1 H Chloride 110.9 H Carbon Dioxide 16 L BUN 146 H Creatinine 4.0 H Glucose 108 H POC Glucose 133 H Lactic Acid Calcium Phosphorus Magnesium 3.00 H Direct Bilirubin AST ALT Alkaline Phosphatase Lactate Dehydrogenase Troponin T C-Reactive Protein Total Protein Albumin Prealbumin Triglycerides Cholesterol LDL Cholesterol Direct HDL Cholesterol Urine pH Urine WBC (Auto) Urine Creatinine Urine Total Protein Fluid Total Protein Vancomycin Trough Rheumatoid Factor Complement C4 Miscellaneous Test Crossmatch 09/17/16 09/17/16 09/17/16 11:15 17:33 23:47 WBC RBC Hgb Hct MCV MCH MCHC RDW Plt Count Lymph % (Auto) [place] % (Auto) Lymph # [place] # Baso # Seg Neutrophils % Seg Neuts % (Manual) Lymphocytes % (Manual) Monocytes % (Manual) Eosinophils % (Manual) Basophils % (Manual) Nucleated RBC % Seg Neutrophils # Seg Neutrophils # Man Lymphocytes # (Manual) Monocytes # (Manual) Eosinophils # (Manual) PT INR Fibrinogen dRVVT Confirm Interp Factor V Activity POC ABG pH POC ABG pCO2 POC ABG pO2 ABG pO2 ABG HCO3 ABG Hemoglobin Oxyhemoglobin Sodium Potassium Chloride Carbon Dioxide BUN Creatinine Glucose POC Glucose 176 H 246 H 148 H Lactic Acid Calcium Phosphorus Magnesium Direct Bilirubin AST ALT Alkaline Phosphatase Lactate Dehydrogenase Troponin T C-Reactive Protein Total Protein Albumin Prealbumin Triglycerides Cholesterol LDL Cholesterol Direct HDL Cholesterol Urine pH Urine WBC (Auto) Urine Creatinine Urine Total Protein Fluid Total Protein Vancomycin Trough Rheumatoid Factor Complement C4 Miscellaneous Test Crossmatch 09/18/16 09/18/16 09/18/16 05:33 08:31 08:31 WBC 18.0 H RBC 3.17 L Hgb 9.0 L Hct 25.7 L MCV MCH MCHC 35 H RDW 20.4 H Plt Count Lymph % (Auto) [place] % (Auto) Lymph # [place] # Baso # Seg Neutrophils % Seg Neuts % (Manual) Lymphocytes % (Manual) Monocytes % (Manual) Eosinophils % (Manual) Basophils % (Manual) Nucleated RBC % Seg Neutrophils # Seg Neutrophils # Man Lymphocytes # (Manual) Monocytes # (Manual) Eosinophils # (Manual) PT INR Fibrinogen dRVVT Confirm Interp Factor V Activity POC ABG pH POC ABG pCO2 POC ABG pO2 ABG pO2 ABG HCO3 ABG Hemoglobin Oxyhemoglobin Sodium Potassium Chloride Carbon Dioxide 15 L BUN 124 H Creatinine 3.8 H Glucose POC Glucose 120 H Lactic Acid Calcium 8.1 L Phosphorus Magnesium Direct Bilirubin AST ALT Alkaline Phosphatase Lactate Dehydrogenase Troponin T C-Reactive Protein Total Protein Albumin Prealbumin Triglycerides Cholesterol LDL Cholesterol Direct HDL Cholesterol Urine pH Urine WBC (Auto) Urine Creatinine Urine Total Protein Fluid Total Protein Vancomycin Trough Rheumatoid Factor Complement C4 Miscellaneous Test Crossmatch 09/18/16 09/18/16 09/18/16 12:03 15:34 17:50 WBC RBC Hgb Hct MCV MCH MCHC RDW Plt Count Lymph % (Auto) [place] % (Auto) Lymph # [place] # Baso # Seg Neutrophils % Seg Neuts % (Manual) Lymphocytes % (Manual) Monocytes % (Manual) Eosinophils % (Manual) Basophils % (Manual) Nucleated RBC % Seg Neutrophils # Seg Neutrophils # Man Lymphocytes # (Manual) Monocytes # (Manual) Eosinophils # (Manual) PT INR Fibrinogen dRVVT Confirm Interp Factor V Activity POC ABG pH POC ABG pCO2 25.7 L POC ABG pO2 66 L ABG pO2 ABG HCO3 ABG Hemoglobin Oxyhemoglobin Sodium Potassium Chloride Carbon Dioxide BUN Creatinine Glucose POC Glucose 156 H 220 H Lactic Acid Calcium Phosphorus Magnesium Direct Bilirubin AST ALT Alkaline Phosphatase Lactate Dehydrogenase Troponin T C-Reactive Protein Total Protein Albumin Prealbumin Triglycerides Cholesterol LDL Cholesterol Direct HDL Cholesterol Urine pH Urine WBC (Auto) Urine Creatinine Urine Total Protein Fluid Total Protein Vancomycin Trough Rheumatoid Factor Complement C4 Miscellaneous Test Crossmatch 09/19/16 09/19/16 09/19/16 06:21 09:50 09:50 WBC 17.1 H RBC 3.49 L Hgb 9.0 L Hct 28.1 L MCV MCH 26 L MCHC RDW 20.8 H Plt Count Lymph % (Auto) 11.5 L [place] % (Auto) 7.5 H Lymph # [place] # 1.3 H Baso # Seg Neutrophils % 79.8 H Seg Neuts % (Manual) Lymphocytes % (Manual) Monocytes % (Manual) Eosinophils % (Manual) Basophils % (Manual) Nucleated RBC % Seg Neutrophils # 13.7 H Seg Neutrophils # Man Lymphocytes # (Manual) Monocytes # (Manual) Eosinophils # (Manual) PT INR Fibrinogen dRVVT Confirm Interp Factor V Activity POC ABG pH POC ABG pCO2 POC ABG pO2 ABG pO2 ABG HCO3 ABG Hemoglobin Oxyhemoglobin Sodium Potassium Chloride 108.6 H Carbon Dioxide 15 L BUN 125 H Creatinine 4.1 H Glucose 124 H POC Glucose 119 H Lactic Acid Calcium Phosphorus Magnesium Direct Bilirubin AST ALT Alkaline Phosphatase Lactate Dehydrogenase Troponin T C-Reactive Protein Total Protein Albumin Prealbumin Triglycerides Cholesterol LDL Cholesterol Direct HDL Cholesterol Urine pH Urine WBC (Auto) Urine Creatinine Urine Total Protein Fluid Total Protein Vancomycin Trough Rheumatoid Factor Complement C4 Miscellaneous Test Crossmatch 07/09/19/16 09/19/16 11:25 17:53 23:36 WBC RBC Hgb Hct MCV MCH MCHC RDW Plt Count Lymph % (Auto) [place] % (Auto) Lymph # [place] # Baso # Seg Neutrophils % Seg Neuts % (Manual) Lymphocytes % (Manual) Monocytes % (Manual) Eosinophils % (Manual) Basophils % (Manual) Nucleated RBC % Seg Neutrophils # Seg Neutrophils # Man Lymphocytes # (Manual) Monocytes # (Manual) Eosinophils # (Manual) PT INR Fibrinogen dRVVT Confirm Interp Factor V Activity POC ABG pH POC ABG pCO2 POC ABG pO2 ABG pO2 ABG HCO3 ABG Hemoglobin Oxyhemoglobin Sodium Potassium Chloride Carbon Dioxide BUN Creatinine Glucose POC Glucose 160 H 245 H 121 H Lactic Acid Calcium Phosphorus Magnesium Direct Bilirubin AST ALT Alkaline Phosphatase Lactate Dehydrogenase Troponin T C-Reactive Protein Total Protein Albumin Prealbumin Triglycerides Cholesterol LDL Cholesterol Direct HDL Cholesterol Urine pH Urine WBC (Auto) Urine Creatinine Urine Total Protein Fluid Total Protein Vancomycin Trough Rheumatoid Factor Complement C4 Miscellaneous Test Crossmatch 09/20/16 09/20/16 09/20/16 04:10 04:10 04:10 WBC 17.0 H RBC 3.21 L Hgb 8.2 L Hct 25.5 L MCV MCH 26 L MCHC RDW 20.9 H Plt Count Lymph % (Auto) [place] % (Auto) Lymph # [place] # Baso # Seg Neutrophils % Seg Neuts % (Manual) Lymphocytes % (Manual) Monocytes % (Manual) Eosinophils % (Manual) Basophils % (Manual) Nucleated RBC % Seg Neutrophils # Seg Neutrophils # Man Lymphocytes # (Manual) Monocytes # (Manual) Eosinophils # (Manual) PT INR Fibrinogen dRVVT Confirm Interp Factor V Activity POC ABG pH POC ABG pCO2 POC ABG pO2 ABG pO2 ABG HCO3 ABG Hemoglobin Oxyhemoglobin Sodium Potassium Chloride 111.0 H Carbon Dioxide 16 L BUN 129 H Creatinine 3.7 H Glucose 115 H POC Glucose Lactic Acid Calcium 8.2 L Phosphorus Magnesium Direct Bilirubin AST ALT Alkaline Phosphatase Lactate Dehydrogenase Troponin T C-Reactive Protein Total Protein Albumin Prealbumin Triglycerides 243 H Cholesterol LDL Cholesterol Direct HDL Cholesterol Urine pH Urine WBC (Auto) Urine Creatinine Urine Total Protein Fluid Total Protein Vancomycin Trough Rheumatoid Factor Complement C4 Miscellaneous Test Crossmatch 09/20/16 09/20/16 09/20/16 05:40 11:52 16:50 WBC RBC Hgb Hct MCV MCH MCHC RDW Plt Count Lymph % (Auto) [place] % (Auto) Lymph # [place] # Baso # Seg Neutrophils % Seg Neuts % (Manual) Lymphocytes % (Manual) Monocytes % (Manual) Eosinophils % (Manual) Basophils % (Manual) Nucleated RBC % Seg Neutrophils # Seg Neutrophils # Man Lymphocytes # (Manual) Monocytes # (Manual) Eosinophils # (Manual) PT INR Fibrinogen dRVVT Confirm Interp Factor V Activity POC ABG pH POC ABG pCO2 POC ABG pO2 ABG pO2 ABG HCO3 ABG Hemoglobin Oxyhemoglobin Sodium Potassium Chloride Carbon Dioxide BUN Creatinine Glucose POC Glucose 131 H 183 H 236 H Lactic Acid Calcium Phosphorus Magnesium Direct Bilirubin AST ALT Alkaline Phosphatase Lactate Dehydrogenase Troponin T C-Reactive Protein Total Protein Albumin Prealbumin Triglycerides Cholesterol LDL Cholesterol Direct HDL Cholesterol Urine pH Urine WBC (Auto) Urine Creatinine Urine Total Protein Fluid Total Protein Vancomycin Trough Rheumatoid Factor Complement C4 Miscellaneous Test Crossmatch 09/20/16 09/21/16 09/21/16 23:51 03:30 04:44 WBC RBC Hgb Hct MCV MCH MCHC RDW Plt Count Lymph % (Auto) [place] % (Auto) Lymph # [place] # Baso # Seg Neutrophils % Seg Neuts % (Manual) Lymphocytes % (Manual) Monocytes % (Manual) Eosinophils % (Manual) Basophils % (Manual) Nucleated RBC % Seg Neutrophils # Seg Neutrophils # Man Lymphocytes # (Manual) Monocytes # (Manual) Eosinophils # (Manual) PT INR Fibrinogen dRVVT Confirm Interp Factor V Activity POC ABG pH POC ABG pCO2 POC ABG pO2 ABG pO2 ABG HCO3 ABG Hemoglobin Oxyhemoglobin Sodium Potassium Chloride Carbon Dioxide BUN Creatinine Glucose POC Glucose 114 H 141 H Lactic Acid Calcium Phosphorus Magnesium 2.70 H Direct Bilirubin AST ALT Alkaline Phosphatase Lactate Dehydrogenase Troponin T C-Reactive Protein Total Protein Albumin Prealbumin Triglycerides Cholesterol LDL Cholesterol Direct HDL Cholesterol Urine pH Urine WBC (Auto) Urine Creatinine Urine Total Protein Fluid Total Protein Vancomycin Trough Rheumatoid Factor Complement C4 Miscellaneous Test Crossmatch 09/21/16 09/21/16 09/21/16 07:45 07:45 10:01 WBC 13.8 H RBC 2.94 L Hgb 7.5 L Hct 23.5 L MCV MCH 26 L MCHC RDW 21.2 H Plt Count Lymph % (Auto) 6.9 L [place] % (Auto) 9.4 H Lymph # 0.9 L [place] # 1.3 H Baso # Seg Neutrophils % 83.2 H Seg Neuts % (Manual) Lymphocytes % (Manual) Monocytes % (Manual) Eosinophils % (Manual) Basophils % (Manual) Nucleated RBC % Seg Neutrophils # 11.5 H Seg Neutrophils # Man Lymphocytes # (Manual) Monocytes # (Manual) Eosinophils # (Manual) PT INR Fibrinogen dRVVT Confirm Interp Factor V Activity POC ABG pH 7.308 L POC ABG pCO2 31.9 L POC ABG pO2 148 H ABG pO2 ABG HCO3 ABG Hemoglobin Oxyhemoglobin Sodium 147 H Potassium Chloride 114.2 H Carbon Dioxide 15 L BUN 120 H Creatinine 3.9 H Glucose 156 H POC Glucose Lactic Acid Calcium 8.2 L Phosphorus Magnesium Direct Bilirubin AST ALT Alkaline Phosphatase Lactate Dehydrogenase Troponin T C-Reactive Protein Total Protein Albumin Prealbumin Triglycerides Cholesterol LDL Cholesterol Direct HDL Cholesterol Urine pH Urine WBC (Auto) Urine Creatinine Urine Total Protein Fluid Total Protein Vancomycin Trough Rheumatoid Factor Complement C4 Miscellaneous Test Crossmatch 09/21/16 09/21/16 09/21/16 12:00 12:03 13:00 WBC RBC Hgb Hct MCV MCH MCHC RDW Plt Count Lymph % (Auto) [place] % (Auto) Lymph # [place] # Baso # Seg Neutrophils % Seg Neuts % (Manual) Lymphocytes % (Manual) Monocytes % (Manual) Eosinophils % (Manual) Basophils % (Manual) Nucleated RBC % Seg Neutrophils # Seg Neutrophils # Man Lymphocytes # (Manual) Monocytes # (Manual) Eosinophils # (Manual) PT INR Fibrinogen dRVVT Confirm Interp Factor V Activity POC ABG pH POC ABG pCO2 POC ABG pO2 ABG pO2 ABG HCO3 ABG Hemoglobin Oxyhemoglobin Sodium Potassium Chloride Carbon Dioxide BUN Creatinine Glucose POC Glucose 163 H Lactic Acid Calcium Phosphorus Magnesium Direct Bilirubin AST ALT Alkaline Phosphatase Lactate Dehydrogenase Troponin T C-Reactive Protein Total Protein Albumin Prealbumin Triglycerides Cholesterol LDL Cholesterol Direct HDL Cholesterol Urine pH Urine WBC (Auto) Urine Creatinine 54.8 H Urine Total Protein Fluid Total Protein Vancomycin Trough 2.3 L Rheumatoid Factor Complement C4 Miscellaneous Test Crossmatch 09/21/16 09/21/16 09/22/16 16:51 23:17 06:27 WBC RBC Hgb Hct MCV MCH MCHC RDW Plt Count Lymph % (Auto) [place] % (Auto) Lymph # [place] # Baso # Seg Neutrophils % Seg Neuts % (Manual) Lymphocytes % (Manual) Monocytes % (Manual) Eosinophils % (Manual) Basophils % (Manual) Nucleated RBC % Seg Neutrophils # Seg Neutrophils # Man Lymphocytes # (Manual) Monocytes # (Manual) Eosinophils # (Manual) PT INR Fibrinogen dRVVT Confirm Interp Factor V Activity POC ABG pH POC ABG pCO2 POC ABG pO2 ABG pO2 ABG HCO3 ABG Hemoglobin Oxyhemoglobin Sodium Potassium Chloride Carbon Dioxide BUN Creatinine Glucose POC Glucose 206 H 114 H 115 H Lactic Acid Calcium Phosphorus Magnesium Direct Bilirubin AST ALT Alkaline Phosphatase Lactate Dehydrogenase Troponin T C-Reactive Protein Total Protein Albumin Prealbumin Triglycerides Cholesterol LDL Cholesterol Direct HDL Cholesterol Urine pH Urine WBC (Auto) Urine Creatinine Urine Total Protein Fluid Total Protein Vancomycin Trough Rheumatoid Factor Complement C4 Miscellaneous Test Crossmatch 09/22/16 09/22/16 09/22/16 07:50 07:50 12:00 WBC 17.8 H RBC 3.04 L Hgb 8.0 L Hct 24.7 L MCV MCH 26 L MCHC RDW 21.6 H Plt Count Lymph % (Auto) [place] % (Auto) Lymph # [place] # Baso # Seg Neutrophils % Seg Neuts % (Manual) Lymphocytes % (Manual) Monocytes % (Manual) Eosinophils % (Manual) Basophils % (Manual) Nucleated RBC % Seg Neutrophils # Seg Neutrophils # Man Lymphocytes # (Manual) Monocytes # (Manual) Eosinophils # (Manual) PT INR Fibrinogen dRVVT Confirm Interp Factor V Activity POC ABG pH POC ABG pCO2 POC ABG pO2 ABG pO2 ABG HCO3 ABG Hemoglobin Oxyhemoglobin Sodium 150 H Potassium Chloride 118.2 H Carbon Dioxide 14 L BUN 111 H Creatinine 3.7 H Glucose 157 H POC Glucose 183 H Lactic Acid Calcium Phosphorus Magnesium Direct Bilirubin AST ALT Alkaline Phosphatase Lactate Dehydrogenase Troponin T C-Reactive Protein Total Protein Albumin Prealbumin Triglycerides Cholesterol LDL Cholesterol Direct HDL Cholesterol Urine pH Urine WBC (Auto) Urine Creatinine Urine Total Protein Fluid Total Protein Vancomycin Trough Rheumatoid Factor Complement C4 Miscellaneous Test Crossmatch 09/22/16 09/22/16 09/23/16 17:29 23:10 05:00 WBC 19.2 H RBC 3.13 L Hgb 8.0 L Hct 25.2 L MCV MCH 26 L MCHC RDW 22.1 H Plt Count Lymph % (Auto) [place] % (Auto) Lymph # [place] # Baso # Seg Neutrophils % Seg Neuts % (Manual) 92.0 H Lymphocytes % (Manual) 3.0 L Monocytes % (Manual) Eosinophils % (Manual) Basophils % (Manual) Nucleated RBC % Seg Neutrophils # Seg Neutrophils # Man 17.7 H Lymphocytes # (Manual) 0.6 L Monocytes # (Manual) Eosinophils # (Manual) PT INR Fibrinogen dRVVT Confirm Interp Factor V Activity POC ABG pH POC ABG pCO2 POC ABG pO2 ABG pO2 ABG HCO3 ABG Hemoglobin Oxyhemoglobin Sodium Potassium Chloride Carbon Dioxide BUN Creatinine Glucose POC Glucose 197 H 169 H Lactic Acid Calcium Phosphorus Magnesium Direct Bilirubin AST ALT Alkaline Phosphatase Lactate Dehydrogenase Troponin T C-Reactive Protein Total Protein Albumin Prealbumin Triglycerides Cholesterol LDL Cholesterol Direct HDL Cholesterol Urine pH Urine WBC (Auto) Urine Creatinine Urine Total Protein Fluid Total Protein Vancomycin Trough Rheumatoid Factor Complement C4 Miscellaneous Test Crossmatch 09/23/16 09/23/16 09/23/16 05:00 05:00 05:10 WBC RBC Hgb Hct MCV MCH MCHC RDW Plt Count Lymph % (Auto) [place] % (Auto) Lymph # [place] # Baso # Seg Neutrophils % Seg Neuts % (Manual) Lymphocytes % (Manual) Monocytes % (Manual) Eosinophils % (Manual) Basophils % (Manual) Nucleated RBC % Seg Neutrophils # Seg Neutrophils # Man Lymphocytes # (Manual) Monocytes # (Manual) Eosinophils # (Manual) PT INR Fibrinogen dRVVT Confirm Interp Factor V Activity POC ABG pH POC ABG pCO2 POC ABG pO2 ABG pO2 ABG HCO3 ABG Hemoglobin Oxyhemoglobin Sodium 147 H Potassium 3.2 L Chloride 115.7 H Carbon Dioxide 13 L BUN 111 H Creatinine 3.8 H Glucose 194 H POC Glucose 188 H Lactic Acid Calcium 7.3 L D Phosphorus Magnesium Direct Bilirubin AST ALT Alkaline Phosphatase Lactate Dehydrogenase Troponin T C-Reactive Protein 3.20 H Total Protein Albumin Prealbumin Triglycerides Cholesterol LDL Cholesterol Direct HDL Cholesterol Urine pH Urine WBC (Auto) Urine Creatinine Urine Total Protein Fluid Total Protein Vancomycin Trough Rheumatoid Factor Complement C4 Miscellaneous Test Crossmatch 09/23/16 09/23/16 09/23/16 11:37 12:29 18:01 WBC RBC Hgb Hct MCV MCH MCHC RDW Plt Count Lymph % (Auto) [place] % (Auto) Lymph # [place] # Baso # Seg Neutrophils % Seg Neuts % (Manual) Lymphocytes % (Manual) Monocytes % (Manual) Eosinophils % (Manual) Basophils % (Manual) Nucleated RBC % Seg Neutrophils # Seg Neutrophils # Man Lymphocytes # (Manual) Monocytes # (Manual) Eosinophils # (Manual) PT INR Fibrinogen dRVVT Confirm Interp Factor V Activity POC ABG pH POC ABG pCO2 18.9 L POC ABG pO2 143 H ABG pO2 ABG HCO3 ABG Hemoglobin Oxyhemoglobin Sodium Potassium Chloride Carbon Dioxide BUN Creatinine Glucose POC Glucose 153 H 108 H Lactic Acid Calcium Phosphorus Magnesium Direct Bilirubin AST ALT Alkaline Phosphatase Lactate Dehydrogenase Troponin T C-Reactive Protein Total Protein Albumin Prealbumin Triglycerides Cholesterol LDL Cholesterol Direct HDL Cholesterol Urine pH Urine WBC (Auto) Urine Creatinine Urine Total Protein Fluid Total Protein Vancomycin Trough Rheumatoid Factor Complement C4 Miscellaneous Test Crossmatch 09/23/16 09/23/16 09/24/16 21:19 23:43 05:16 WBC RBC Hgb Hct MCV MCH MCHC RDW Plt Count Lymph % (Auto) [place] % (Auto) Lymph # [place] # Baso # Seg Neutrophils % Seg Neuts % (Manual) Lymphocytes % (Manual) Monocytes % (Manual) Eosinophils % (Manual) Basophils % (Manual) Nucleated RBC % Seg Neutrophils # Seg Neutrophils # Man Lymphocytes # (Manual) Monocytes # (Manual) Eosinophils # (Manual) PT INR Fibrinogen dRVVT Confirm Interp Factor V Activity POC ABG pH POC ABG pCO2 17.3 L POC ABG pO2 112 H ABG pO2 ABG HCO3 ABG Hemoglobin Oxyhemoglobin Sodium Potassium Chloride Carbon Dioxide BUN Creatinine Glucose POC Glucose 143 H 164 H Lactic Acid Calcium Phosphorus Magnesium Direct Bilirubin AST ALT Alkaline Phosphatase Lactate Dehydrogenase Troponin T C-Reactive Protein Total Protein Albumin Prealbumin Triglycerides Cholesterol LDL Cholesterol Direct HDL Cholesterol Urine pH Urine WBC (Auto) Urine Creatinine Urine Total Protein Fluid Total Protein Vancomycin Trough Rheumatoid Factor Complement C4 Miscellaneous Test Crossmatch 09/24/16 09/24/16 09/24/16 05:21 11:58 17:06 WBC RBC Hgb Hct MCV MCH MCHC RDW Plt Count Lymph % (Auto) [place] % (Auto) Lymph # [place] # Baso # Seg Neutrophils % Seg Neuts % (Manual) Lymphocytes % (Manual) Monocytes % (Manual) Eosinophils % (Manual) Basophils % (Manual) Nucleated RBC % Seg Neutrophils # Seg Neutrophils # Man Lymphocytes # (Manual) Monocytes # (Manual) Eosinophils # (Manual) PT INR Fibrinogen dRVVT Confirm Interp Factor V Activity POC ABG pH POC ABG pCO2 POC ABG pO2 ABG pO2 ABG HCO3 ABG Hemoglobin Oxyhemoglobin Sodium Potassium Chloride Carbon Dioxide 10 L BUN 103 H Creatinine 4.3 H Glucose 163 H POC Glucose 173 H 167 H Lactic Acid Calcium 6.5 L Phosphorus Magnesium Direct Bilirubin AST ALT Alkaline Phosphatase Lactate Dehydrogenase Troponin T C-Reactive Protein Total Protein Albumin Prealbumin Triglycerides Cholesterol LDL Cholesterol Direct HDL Cholesterol Urine pH Urine WBC (Auto) Urine Creatinine Urine Total Protein Fluid Total Protein Vancomycin Trough Rheumatoid Factor Complement C4 Miscellaneous Test Crossmatch 09/24/16 09/24/16 09/24/16 20:15 21:02 23:48 WBC RBC Hgb Hct MCV MCH MCHC RDW Plt Count Lymph % (Auto) [place] % (Auto) Lymph # [place] # Baso # Seg Neutrophils % Seg Neuts % (Manual) Lymphocytes % (Manual) Monocytes % (Manual) Eosinophils % (Manual) Basophils % (Manual) Nucleated RBC % Seg Neutrophils # Seg Neutrophils # Man Lymphocytes # (Manual) Monocytes # (Manual) Eosinophils # (Manual) PT INR Fibrinogen dRVVT Confirm Interp Factor V Activity POC ABG pH 7.288 L POC ABG pCO2 30.2 L 21.5 L POC ABG pO2 32 L 39 L ABG pO2 ABG HCO3 ABG Hemoglobin Oxyhemoglobin Sodium Potassium Chloride Carbon Dioxide BUN Creatinine Glucose POC Glucose 109 H Lactic Acid Calcium Phosphorus Magnesium Direct Bilirubin AST ALT Alkaline Phosphatase Lactate Dehydrogenase Troponin T C-Reactive Protein Total Protein Albumin Prealbumin Triglycerides Cholesterol LDL Cholesterol Direct HDL Cholesterol Urine pH Urine WBC (Auto) Urine Creatinine Urine Total Protein Fluid Total Protein Vancomycin Trough Rheumatoid Factor Complement C4 Miscellaneous Test Crossmatch 09/25/16 09/25/16 09/25/16 04:20 04:20 04:20 WBC RBC 2.58 L Hgb 7.0 L Hct 21.0 L MCV MCH 27 L MCHC RDW 23.8 H Plt Count Lymph % (Auto) [place] % (Auto) Lymph # [place] # Baso # Seg Neutrophils % Seg Neuts % (Manual) Lymphocytes % (Manual) 12.0 L Monocytes % (Manual) Eosinophils % (Manual) 7.0 H Basophils % (Manual) 2.0 H Nucleated RBC % Seg Neutrophils # Seg Neutrophils # Man Lymphocytes # (Manual) 0.9 L Monocytes # (Manual) Eosinophils # (Manual) 0.5 H PT INR Fibrinogen dRVVT Confirm Interp Factor V Activity POC ABG pH POC ABG pCO2 POC ABG pO2 ABG pO2 ABG HCO3 ABG Hemoglobin Oxyhemoglobin Sodium Potassium Chloride Carbon Dioxide 15 L BUN 72 H Creatinine 3.8 H Glucose POC Glucose Lactic Acid Calcium 6.0 L Phosphorus 4.60 H Magnesium 1.60 L Direct Bilirubin AST ALT Alkaline Phosphatase Lactate Dehydrogenase Troponin T C-Reactive Protein Total Protein Albumin Prealbumin Triglycerides Cholesterol LDL Cholesterol Direct HDL Cholesterol Urine pH Urine WBC (Auto) Urine Creatinine Urine Total Protein Fluid Total Protein Vancomycin Trough Rheumatoid Factor Complement C4 Miscellaneous Test Crossmatch 09/25/16 09/25/16 09/25/16 04:57 08:02 10:30 WBC RBC Hgb Hct MCV MCH MCHC RDW Plt Count Lymph % (Auto) [place] % (Auto) Lymph # [place] # Baso # Seg Neutrophils % Seg Neuts % (Manual) Lymphocytes % (Manual) Monocytes % (Manual) Eosinophils % (Manual) Basophils % (Manual) Nucleated RBC % Seg Neutrophils # Seg Neutrophils # Man Lymphocytes # (Manual) Monocytes # (Manual) Eosinophils # (Manual) PT INR Fibrinogen dRVVT Confirm Interp Factor V Activity POC ABG pH POC ABG pCO2 24.7 L POC ABG pO2 152 H ABG pO2 ABG HCO3 ABG Hemoglobin Oxyhemoglobin Sodium Potassium Chloride Carbon Dioxide BUN Creatinine Glucose POC Glucose 113 H Lactic Acid Calcium Phosphorus Magnesium Direct Bilirubin AST ALT Alkaline Phosphatase Lactate Dehydrogenase Troponin T C-Reactive Protein Total Protein Albumin Prealbumin Triglycerides Cholesterol LDL Cholesterol Direct HDL Cholesterol Urine pH Urine WBC (Auto) Urine Creatinine Urine Total Protein Fluid Total Protein Vancomycin Trough Rheumatoid Factor Complement C4 Miscellaneous Test Crossmatch See Detail 09/25/16 09/25/16 09/25/16 12:05 17:44 23:47 WBC RBC Hgb Hct MCV MCH MCHC RDW Plt Count Lymph % (Auto) [place] % (Auto) Lymph # [place] # Baso # Seg Neutrophils % Seg Neuts % (Manual) Lymphocytes % (Manual) Monocytes % (Manual) Eosinophils % (Manual) Basophils % (Manual) Nucleated RBC % Seg Neutrophils # Seg Neutrophils # Man Lymphocytes # (Manual) Monocytes # (Manual) Eosinophils # (Manual) PT INR Fibrinogen dRVVT Confirm Interp Factor V Activity POC ABG pH POC ABG pCO2 POC ABG pO2 ABG pO2 ABG HCO3 ABG Hemoglobin Oxyhemoglobin Sodium Potassium Chloride Carbon Dioxide BUN Creatinine Glucose POC Glucose 117 H 119 H 150 H Lactic Acid Calcium Phosphorus Magnesium Direct Bilirubin AST ALT Alkaline Phosphatase Lactate Dehydrogenase Troponin T C-Reactive Protein Total Protein Albumin Prealbumin Triglycerides Cholesterol LDL Cholesterol Direct HDL Cholesterol Urine pH Urine WBC (Auto) Urine Creatinine Urine Total Protein Fluid Total Protein Vancomycin Trough Rheumatoid Factor Complement C4 Miscellaneous Test Crossmatch 09/26/16 09/26/16 09/26/16 04:25 04:25 04:25 WBC RBC 2.65 L Hgb 7.4 L Hct 21.6 L MCV MCH MCHC RDW 22.5 H Plt Count Lymph % (Auto) [place] % (Auto) Lymph # [place] # Baso # Seg Neutrophils % Seg Neuts % (Manual) Lymphocytes % (Manual) 6.0 L Monocytes % (Manual) Eosinophils % (Manual) 11.0 H Basophils % (Manual) Nucleated RBC % Seg Neutrophils # Seg Neutrophils # Man Lymphocytes # (Manual) 0.4 L Monocytes # (Manual) Eosinophils # (Manual) 0.6 H PT INR Fibrinogen dRVVT Confirm Interp Factor V Activity POC ABG pH POC ABG pCO2 POC ABG pO2 ABG pO2 ABG HCO3 ABG Hemoglobin Oxyhemoglobin Sodium Potassium Chloride 97.0 L Carbon Dioxide 19 L BUN 43 H Creatinine 2.6 H Glucose 130 H POC Glucose Lactic Acid 4.40 H* Calcium 6.7 L Phosphorus Magnesium Direct Bilirubin AST ALT Alkaline Phosphatase Lactate Dehydrogenase Troponin T C-Reactive Protein Total Protein Albumin Prealbumin Triglycerides Cholesterol LDL Cholesterol Direct HDL Cholesterol Urine pH Urine WBC (Auto) Urine Creatinine Urine Total Protein Fluid Total Protein Vancomycin Trough Rheumatoid Factor Complement C4 Miscellaneous Test Crossmatch 09/26/16 09/26/16 09/26/16 05:20 11:44 12:12 WBC RBC Hgb Hct MCV MCH MCHC RDW Plt Count Lymph % (Auto) [place] % (Auto) Lymph # [place] # Baso # Seg Neutrophils % Seg Neuts % (Manual) Lymphocytes % (Manual) Monocytes % (Manual) Eosinophils % (Manual) Basophils % (Manual) Nucleated RBC % Seg Neutrophils # Seg Neutrophils # Man Lymphocytes # (Manual) Monocytes # (Manual) Eosinophils # (Manual) PT INR Fibrinogen dRVVT Confirm Interp Factor V Activity POC ABG pH POC ABG pCO2 27.0 L POC ABG pO2 69 L ABG pO2 ABG HCO3 ABG Hemoglobin Oxyhemoglobin Sodium Potassium Chloride Carbon Dioxide BUN Creatinine Glucose POC Glucose 121 H 128 H Lactic Acid Calcium Phosphorus Magnesium Direct Bilirubin AST ALT Alkaline Phosphatase Lactate Dehydrogenase Troponin T C-Reactive Protein Total Protein Albumin Prealbumin Triglycerides Cholesterol LDL Cholesterol Direct HDL Cholesterol Urine pH Urine WBC (Auto) Urine Creatinine Urine Total Protein Fluid Total Protein Vancomycin Trough Rheumatoid Factor Complement C4 Miscellaneous Test Crossmatch 09/26/16 09/26/16 09/27/16 18:31 23:40 08:20 WBC RBC Hgb Hct MCV MCH MCHC RDW Plt Count Lymph % (Auto) [place] % (Auto) Lymph # [place] # Baso # Seg Neutrophils % Seg Neuts % (Manual) Lymphocytes % (Manual) Monocytes % (Manual) Eosinophils % (Manual) Basophils % (Manual) Nucleated RBC % Seg Neutrophils # Seg Neutrophils # Man Lymphocytes # (Manual) Monocytes # (Manual) Eosinophils # (Manual) PT INR Fibrinogen dRVVT Confirm Interp Factor V Activity POC ABG pH POC ABG pCO2 POC ABG pO2 ABG pO2 ABG HCO3 ABG Hemoglobin Oxyhemoglobin Sodium Potassium Chloride Carbon Dioxide BUN Creatinine Glucose POC Glucose 120 H 133 H Lactic Acid 4.10 H* Calcium Phosphorus Magnesium Direct Bilirubin AST ALT Alkaline Phosphatase Lactate Dehydrogenase Troponin T C-Reactive Protein Total Protein Albumin Prealbumin Triglycerides Cholesterol LDL Cholesterol Direct HDL Cholesterol Urine pH Urine WBC (Auto) Urine Creatinine Urine Total Protein Fluid Total Protein Vancomycin Trough Rheumatoid Factor Complement C4 Miscellaneous Test Crossmatch 09/27/16 09/27/16 09/27/16 11:23 15:00 18:15 WBC RBC Hgb Hct MCV MCH MCHC RDW Plt Count Lymph % (Auto) [place] % (Auto) Lymph # [place] # [place] # Seg Neutrophils % Seg Neuts % (Manual) Lymphocytes % (Manual) Monocytes % (Manual) Eosinophils % (Manual) Basophils % (Manual) Nucleated RBC % Seg Neutrophils # Seg Neutrophils # Man Lymphocytes # (Manual) Monocytes # (Manual) Eosinophils # (Manual) PT INR Fibrinogen dRVVT Confirm Interp Factor V Activity POC ABG pH 7.459 H POC ABG pCO2 27.1 L POC ABG pO2 140 H ABG pO2 ABG HCO3 ABG Hemoglobin Oxyhemoglobin Sodium Potassium Chloride Carbon Dioxide BUN Creatinine Glucose POC Glucose 114 H 127 H Lactic Acid Calcium Phosphorus Magnesium Direct Bilirubin AST ALT Alkaline Phosphatase Lactate Dehydrogenase Troponin T C-Reactive Protein Total Protein Albumin Prealbumin Triglycerides Cholesterol LDL Cholesterol Direct HDL Cholesterol Urine pH Urine WBC (Auto) Urine Creatinine Urine Total Protein Fluid Total Protein Vancomycin Trough Rheumatoid Factor Complement C4 Miscellaneous Test Crossmatch 09/27/16 09/27/16 09/28/16 Unknown Unknown 03:45 WBC RBC 2.49 L Hgb 6.8 L Hct 20.7 L MCV MCH 27 L MCHC RDW 22.1 H Plt Count Lymph % (Auto) [place] % (Auto) Lymph # [place] # Baso # Seg Neutrophils % Seg Neuts % (Manual) 32.0 L Lymphocytes % (Manual) 12.0 L Monocytes % (Manual) 11.0 H Eosinophils % (Manual) 10.0 H Basophils % (Manual) Nucleated RBC % Seg Neutrophils # Seg Neutrophils # Man Lymphocytes # (Manual) 1.0 L Monocytes # (Manual) 0.9 H Eosinophils # (Manual) 0.8 H PT INR Fibrinogen dRVVT Confirm Interp Factor V Activity POC ABG pH POC ABG pCO2 POC ABG pO2 ABG pO2 ABG HCO3 ABG Hemoglobin Oxyhemoglobin Sodium 135 L 135 L Potassium 3.5 L Chloride 93.6 L 94.4 L Carbon Dioxide 17 L 21 L BUN 45 H 28 H Creatinine 3.3 H 2.5 H Glucose 106 H POC Glucose Lactic Acid Calcium 7.3 L 7.1 L Phosphorus Magnesium Direct Bilirubin AST ALT Alkaline Phosphatase Lactate Dehydrogenase Troponin T C-Reactive Protein Total Protein Albumin Prealbumin Triglycerides Cholesterol LDL Cholesterol Direct HDL Cholesterol Urine pH Urine WBC (Auto) Urine Creatinine Urine Total Protein Fluid Total Protein Vancomycin Trough Rheumatoid Factor Complement C4 Miscellaneous Test Crossmatch 09/28/16 09/28/16 09/28/16 03:45 07:25 11:58 WBC 13.3 H RBC 3.01 L Hgb 8.4 L Hct 25.0 L MCV MCH MCHC RDW 20.5 H Plt Count 128 L Lymph % (Auto) [place] % (Auto) Lymph # [place] # Baso # Seg Neutrophils % Seg Neuts % (Manual) Lymphocytes % (Manual) 7.0 L Monocytes % (Manual) Eosinophils % (Manual) 6.0 H Basophils % (Manual) Nucleated RBC % Seg Neutrophils # Seg Neutrophils # Man Lymphocytes # (Manual) 0.9 L Monocytes # (Manual) Eosinophils # (Manual) 0.8 H PT INR Fibrinogen dRVVT Confirm Interp Factor V Activity POC ABG pH POC ABG pCO2 POC ABG pO2 ABG pO2 ABG HCO3 ABG Hemoglobin Oxyhemoglobin Sodium Potassium Chloride Carbon Dioxide BUN Creatinine Glucose POC Glucose 121 H Lactic Acid 4.50 H* Calcium Phosphorus Magnesium Direct Bilirubin AST ALT Alkaline Phosphatase Lactate Dehydrogenase Troponin T C-Reactive Protein Total Protein Albumin Prealbumin Triglycerides Cholesterol LDL Cholesterol Direct HDL Cholesterol Urine pH Urine WBC (Auto) Urine Creatinine Urine Total Protein Fluid Total Protein Vancomycin Trough Rheumatoid Factor Complement C4 Miscellaneous Test Crossmatch 09/29/16 09/29/16 09/29/16 06:45 06:45 06:45 WBC 14.9 H RBC 2.74 L Hgb 7.6 L Hct 23.2 L MCV MCH MCHC RDW 20.5 H Plt Count 81 L Lymph % (Auto) [place] % (Auto) Lymph # [place] # Baso # Seg Neutrophils % Seg Neuts % (Manual) 81.0 H Lymphocytes % (Manual) 4.0 L Monocytes % (Manual) Eosinophils % (Manual) Basophils % (Manual) Nucleated RBC % Seg Neutrophils # Seg Neutrophils # Man 12.1 H Lymphocytes # (Manual) 0.6 L Monocytes # (Manual) Eosinophils # (Manual) PT INR Fibrinogen dRVVT Confirm Interp Factor V Activity POC ABG pH POC ABG pCO2 POC ABG pO2 ABG pO2 ABG HCO3 ABG Hemoglobin Oxyhemoglobin Sodium 133 L Potassium 3.4 L Chloride 92.5 L Carbon Dioxide 21 L BUN 33 H Creatinine 3.0 H Glucose POC Glucose Lactic Acid Calcium 6.6 L Phosphorus Magnesium 1.40 L Direct Bilirubin 0.9 H AST ALT Alkaline Phosphatase Lactate Dehydrogenase Troponin T C-Reactive Protein Total Protein 4.3 L Albumin 1.3 L Prealbumin Triglycerides Cholesterol LDL Cholesterol Direct HDL Cholesterol Urine pH Urine WBC (Auto) Urine Creatinine Urine Total Protein Fluid Total Protein Vancomycin Trough Rheumatoid Factor Complement C4 Miscellaneous Test Crossmatch 09/29/16 09/29/16 09/30/16 17:52 20:12 00:07 WBC RBC Hgb Hct MCV MCH MCHC RDW Plt Count Lymph % (Auto) [place] % (Auto) Lymph # [place] # Baso # Seg Neutrophils % Seg Neuts % (Manual) Lymphocytes % (Manual) Monocytes % (Manual) Eosinophils % (Manual) Basophils % (Manual) Nucleated RBC % Seg Neutrophils # Seg Neutrophils # Man Lymphocytes # (Manual) Monocytes # (Manual) Eosinophils # (Manual) PT INR Fibrinogen dRVVT Confirm Interp Factor V Activity POC ABG pH POC ABG pCO2 POC ABG pO2 ABG pO2 ABG HCO3 ABG Hemoglobin Oxyhemoglobin Sodium Potassium Chloride Carbon Dioxide BUN Creatinine Glucose POC Glucose 50 L 51 L Lactic Acid Calcium Phosphorus Magnesium Direct Bilirubin AST ALT Alkaline Phosphatase Lactate Dehydrogenase Troponin T 0.204 H* C-Reactive Protein Total Protein Albumin Prealbumin Triglycerides Cholesterol 31 L LDL Cholesterol Direct 4 L HDL Cholesterol 3 L Urine pH Urine WBC (Auto) Urine Creatinine Urine Total Protein Fluid Total Protein Vancomycin Trough Rheumatoid Factor Complement C4 Miscellaneous Test Crossmatch 09/30/16 09/30/16 09/30/16 01:30 05:15 06:10 WBC RBC Hgb Hct MCV MCH MCHC RDW Plt Count Lymph % (Auto) [place] % (Auto) Lymph # [place] # Baso # Seg Neutrophils % Seg Neuts % (Manual) Lymphocytes % (Manual) Monocytes % (Manual) Eosinophils % (Manual) Basophils % (Manual) Nucleated RBC % Seg Neutrophils # Seg Neutrophils # Man Lymphocytes # (Manual) Monocytes # (Manual) Eosinophils # (Manual) PT INR Fibrinogen dRVVT Confirm Interp Factor V Activity POC ABG pH POC ABG pCO2 POC ABG pO2 ABG pO2 ABG HCO3 ABG Hemoglobin Oxyhemoglobin Sodium 133 L Potassium 3.2 L Chloride 93.2 L Carbon Dioxide 19 L BUN 36 H Creatinine 3.2 H Glucose 104 H POC Glucose 167 H 146 H Lactic Acid Calcium 6.4 L Phosphorus Magnesium 1.60 L Direct Bilirubin AST ALT Alkaline Phosphatase Lactate Dehydrogenase Troponin T C-Reactive Protein Total Protein Albumin Prealbumin Triglycerides Cholesterol LDL Cholesterol Direct HDL Cholesterol Urine pH Urine WBC (Auto) Urine Creatinine Urine Total Protein Fluid Total Protein Vancomycin Trough Rheumatoid Factor Complement C4 Miscellaneous Test Crossmatch 09/30/16 09/30/16 09/30/16 11:26 13:39 18:38 WBC RBC Hgb Hct MCV MCH MCHC RDW Plt Count Lymph % (Auto) [place] % (Auto) Lymph # [place] # Baso # Seg Neutrophils % Seg Neuts % (Manual) Lymphocytes % (Manual) Monocytes % (Manual) Eosinophils % (Manual) Basophils % (Manual) Nucleated RBC % Seg Neutrophils # Seg Neutrophils # Man Lymphocytes # (Manual) Monocytes # (Manual) Eosinophils # (Manual) PT INR Fibrinogen dRVVT Confirm Interp Factor V Activity POC ABG pH 7.479 H POC ABG pCO2 29.8 L POC ABG pO2 117 H ABG pO2 ABG HCO3 ABG Hemoglobin Oxyhemoglobin Sodium Potassium Chloride Carbon Dioxide BUN Creatinine Glucose POC Glucose 140 H 122 H Lactic Acid Calcium Phosphorus Magnesium Direct Bilirubin AST ALT Alkaline Phosphatase Lactate Dehydrogenase Troponin T C-Reactive Protein Total Protein Albumin Prealbumin Triglycerides Cholesterol LDL Cholesterol Direct HDL Cholesterol Urine pH Urine WBC (Auto) Urine Creatinine Urine Total Protein Fluid Total Protein Vancomycin Trough Rheumatoid Factor Complement C4 Miscellaneous Test Crossmatch 10/01/16 10/01/16 10/01/16 06:00 06:00 12:37 WBC 12.6 H RBC 2.75 L Hgb 7.3 L Hct 23.3 L MCV MCH 27 L MCHC RDW 20.6 H Plt Count 72 L Lymph % (Auto) [place] % (Auto) Lymph # [place] # Baso # Seg Neutrophils % Seg Neuts % (Manual) 31.0 L Lymphocytes % (Manual) 8.0 L Monocytes % (Manual) Eosinophils % (Manual) Basophils % (Manual) Nucleated RBC % 3.0 H Seg Neutrophils # Seg Neutrophils # Man Lymphocytes # (Manual) 1.0 L Monocytes # (Manual) Eosinophils # (Manual) PT INR Fibrinogen dRVVT Confirm Interp Factor V Activity POC ABG pH POC ABG pCO2 POC ABG pO2 ABG pO2 ABG HCO3 ABG Hemoglobin Oxyhemoglobin Sodium 127 L Potassium Chloride 86.8 L Carbon Dioxide 20 L BUN 42 H Creatinine 3.5 H Glucose POC Glucose 65 L Lactic Acid Calcium 7.0 L Phosphorus Magnesium Direct Bilirubin AST ALT Alkaline Phosphatase Lactate Dehydrogenase Troponin T C-Reactive Protein Total Protein Albumin Prealbumin Triglycerides Cholesterol LDL Cholesterol Direct HDL Cholesterol Urine pH Urine WBC (Auto) Urine Creatinine Urine Total Protein Fluid Total Protein Vancomycin Trough Rheumatoid Factor Complement C4 Miscellaneous Test Crossmatch 10/01/16 10/01/16 10/02/16 17:39 23:32 00:59 WBC RBC Hgb Hct MCV MCH MCHC RDW Plt Count Lymph % (Auto) [place] % (Auto) Lymph # [place] # Baso # Seg Neutrophils % Seg Neuts % (Manual) Lymphocytes % (Manual) Monocytes % (Manual) Eosinophils % (Manual) Basophils % (Manual) Nucleated RBC % Seg Neutrophils # Seg Neutrophils # Man Lymphocytes # (Manual) Monocytes # (Manual) Eosinophils # (Manual) PT INR Fibrinogen dRVVT Confirm Interp Factor V Activity POC ABG pH POC ABG pCO2 POC ABG pO2 ABG pO2 ABG HCO3 ABG Hemoglobin Oxyhemoglobin Sodium Potassium Chloride Carbon Dioxide BUN Creatinine Glucose POC Glucose 107 H 52 L 145 H Lactic Acid Calcium Phosphorus Magnesium Direct Bilirubin AST ALT Alkaline Phosphatase Lactate Dehydrogenase Troponin T C-Reactive Protein Total Protein Albumin Prealbumin Triglycerides Cholesterol LDL Cholesterol Direct HDL Cholesterol Urine pH Urine WBC (Auto) Urine Creatinine Urine Total Protein Fluid Total Protein Vancomycin Trough Rheumatoid Factor Complement C4 Miscellaneous Test Crossmatch 10/02/16 10/02/16 10/02/16 10:30 10:50 10:50 WBC 14.7 H RBC 2.76 L Hgb 7.4 L Hct 23.6 L MCV MCH 27 L MCHC RDW 20.2 H Plt Count 79 L Lymph % (Auto) [place] % (Auto) Lymph # [place] # Baso # Seg Neutrophils % Seg Neuts % (Manual) 86.0 H Lymphocytes % (Manual) 6.0 L Monocytes % (Manual) Eosinophils % (Manual) Basophils % (Manual) Nucleated RBC % Seg Neutrophils # Seg Neutrophils # Man 12.6 H Lymphocytes # (Manual) 0.9 L Monocytes # (Manual) Eosinophils # (Manual) PT INR Fibrinogen dRVVT Confirm Interp Factor V Activity POC ABG pH 7.486 H POC ABG pCO2 30.1 L POC ABG pO2 108 H ABG pO2 ABG HCO3 ABG Hemoglobin Oxyhemoglobin Sodium 131 L Potassium 3.4 L Chloride 89.9 L Carbon Dioxide BUN 26 H Creatinine 2.6 H Glucose POC Glucose Lactic Acid Calcium 7.0 L Phosphorus Magnesium Direct Bilirubin AST ALT Alkaline Phosphatase Lactate Dehydrogenase Troponin T C-Reactive Protein Total Protein Albumin Prealbumin Triglycerides Cholesterol LDL Cholesterol Direct HDL Cholesterol Urine pH Urine WBC (Auto) Urine Creatinine Urine Total Protein Fluid Total Protein Vancomycin Trough Rheumatoid Factor Complement C4 Miscellaneous Test Crossmatch 10/02/16 10/03/16 10/03/16 23:45 00:45 05:10 WBC 12.9 H RBC 2.77 L Hgb 7.6 L Hct 23.7 L MCV MCH 27 L MCHC RDW 19.7 H Plt Count 89 L Lymph % (Auto) [place] % (Auto) Lymph # [place] # Baso # Seg Neutrophils % Seg Neuts % (Manual) Lymphocytes % (Manual) 8.0 L Monocytes % (Manual) Eosinophils % (Manual) Basophils % (Manual) Nucleated RBC % Seg Neutrophils # 11.9 H Seg Neutrophils # Man Lymphocytes # (Manual) 1.0 L Monocytes # (Manual) Eosinophils # (Manual) PT INR Fibrinogen dRVVT Confirm Interp Factor V Activity POC ABG pH POC ABG pCO2 POC ABG pO2 ABG pO2 ABG HCO3 ABG Hemoglobin Oxyhemoglobin Sodium Potassium Chloride Carbon Dioxide BUN Creatinine Glucose POC Glucose 55 L 199 H Lactic Acid Calcium Phosphorus Magnesium Direct Bilirubin AST ALT Alkaline Phosphatase Lactate Dehydrogenase Troponin T C-Reactive Protein Total Protein Albumin Prealbumin Triglycerides Cholesterol LDL Cholesterol Direct HDL Cholesterol Urine pH Urine WBC (Auto) Urine Creatinine Urine Total Protein Fluid Total Protein Vancomycin Trough Rheumatoid Factor Complement C4 Miscellaneous Test Crossmatch 10/03/16 10/03/16 10/03/16 05:10 12:14 13:18 WBC RBC Hgb Hct MCV MCH MCHC RDW Plt Count Lymph % (Auto) [place] % (Auto) Lymph # [place] # Baso # Seg Neutrophils % Seg Neuts % (Manual) Lymphocytes % (Manual) Monocytes % (Manual) Eosinophils % (Manual) Basophils % (Manual) Nucleated RBC % Seg Neutrophils # Seg Neutrophils # Man Lymphocytes # (Manual) Monocytes # (Manual) Eosinophils # (Manual) PT INR Fibrinogen dRVVT Confirm Interp Factor V Activity POC ABG pH POC ABG pCO2 POC ABG pO2 ABG pO2 ABG HCO3 ABG Hemoglobin Oxyhemoglobin Sodium 129 L Potassium 3.3 L Chloride 88.8 L Carbon Dioxide 20 L BUN 29 H Creatinine 2.8 H Glucose POC Glucose 68 L 127 H Lactic Acid Calcium 7.2 L Phosphorus Magnesium Direct Bilirubin AST ALT Alkaline Phosphatase Lactate Dehydrogenase Troponin T C-Reactive Protein Total Protein Albumin Prealbumin Triglycerides Cholesterol LDL Cholesterol Direct HDL Cholesterol Urine pH Urine WBC (Auto) Urine Creatinine Urine Total Protein Fluid Total Protein Vancomycin Trough Rheumatoid Factor Complement C4 Miscellaneous Test Crossmatch 10/03/16 10/03/16 10/03/16 14:42 18:21 19:09 WBC RBC Hgb Hct MCV MCH MCHC RDW Plt Count Lymph % (Auto) [place] % (Auto) Lymph # [place] # Baso # Seg Neutrophils % Seg Neuts % (Manual) Lymphocytes % (Manual) Monocytes % (Manual) Eosinophils % (Manual) Basophils % (Manual) Nucleated RBC % Seg Neutrophils # Seg Neutrophils # Man Lymphocytes # (Manual) Monocytes # (Manual) Eosinophils # (Manual) PT INR Fibrinogen dRVVT Confirm Interp Factor V Activity POC ABG pH 7.499 H POC ABG pCO2 28.4 L POC ABG pO2 44 L ABG pO2 ABG HCO3 ABG Hemoglobin Oxyhemoglobin Sodium Potassium Chloride Carbon Dioxide BUN Creatinine Glucose POC Glucose 64 L 205 H Lactic Acid Calcium Phosphorus Magnesium Direct Bilirubin AST ALT Alkaline Phosphatase Lactate Dehydrogenase Troponin T C-Reactive Protein Total Protein Albumin Prealbumin Triglycerides Cholesterol LDL Cholesterol Direct HDL Cholesterol Urine pH Urine WBC (Auto) Urine Creatinine Urine Total Protein Fluid Total Protein Vancomycin Trough Rheumatoid Factor Complement C4 Miscellaneous Test Crossmatch 10/03/16 10/04/16 10/04/16 23:33 04:18 06:30 WBC RBC 2.54 L Hgb 7.1 L Hct 21.7 L MCV MCH MCHC RDW 19.5 H Plt Count 76 L Lymph % (Auto) [place] % (Auto) Lymph # [place] # Baso # Seg Neutrophils % Seg Neuts % (Manual) 88.0 H Lymphocytes % (Manual) 6.0 L Monocytes % (Manual) Eosinophils % (Manual) Basophils % (Manual) Nucleated RBC % Seg Neutrophils # Seg Neutrophils # Man 8.8 H Lymphocytes # (Manual) 0.6 L Monocytes # (Manual) Eosinophils # (Manual) PT INR Fibrinogen dRVVT Confirm Interp Factor V Activity POC ABG pH 7.461 H POC ABG pCO2 33.6 L POC ABG pO2 211 H ABG pO2 ABG HCO3 ABG Hemoglobin Oxyhemoglobin Sodium Potassium Chloride Carbon Dioxide BUN Creatinine Glucose POC Glucose 136 H Lactic Acid Calcium Phosphorus Magnesium Direct Bilirubin AST ALT Alkaline Phosphatase Lactate Dehydrogenase Troponin T C-Reactive Protein Total Protein Albumin Prealbumin Triglycerides Cholesterol LDL Cholesterol Direct HDL Cholesterol Urine pH Urine WBC (Auto) Urine Creatinine Urine Total Protein Fluid Total Protein Vancomycin Trough Rheumatoid Factor Complement C4 Miscellaneous Test Crossmatch 10/04/16 10/04/16 10/04/16 06:30 11:45 17:54 WBC RBC Hgb Hct MCV MCH MCHC RDW Plt Count Lymph % (Auto) [place] % (Auto) Lymph # [place] # Baso # Seg Neutrophils % Seg Neuts % (Manual) Lymphocytes % (Manual) Monocytes % (Manual) Eosinophils % (Manual) Basophils % (Manual) Nucleated RBC % Seg Neutrophils # Seg Neutrophils # Man Lymphocytes # (Manual) Monocytes # (Manual) Eosinophils # (Manual) PT INR Fibrinogen dRVVT Confirm Interp Factor V Activity POC ABG pH POC ABG pCO2 POC ABG pO2 ABG pO2 ABG HCO3 ABG Hemoglobin Oxyhemoglobin Sodium 128 L Potassium Chloride 87.4 L Carbon Dioxide 20 L BUN 34 H Creatinine 2.9 H Glucose 127 H POC Glucose 158 H 160 H Lactic Acid Calcium 7.4 L Phosphorus Magnesium Direct Bilirubin AST ALT Alkaline Phosphatase Lactate Dehydrogenase Troponin T C-Reactive Protein Total Protein Albumin Prealbumin Triglycerides Cholesterol LDL Cholesterol Direct HDL Cholesterol Urine pH Urine WBC (Auto) Urine Creatinine Urine Total Protein Fluid Total Protein Vancomycin Trough Rheumatoid Factor Complement C4 Miscellaneous Test Crossmatch 10/04/16 10/05/16 10/05/16 23:25 04:30 05:00 WBC RBC 2.64 L Hgb 7.5 L Hct 22.6 L MCV MCH MCHC RDW 19.3 H Plt Count 80 L Lymph % (Auto) [place] % (Auto) Lymph # [place] # Baso # Seg Neutrophils % Seg Neuts % (Manual) Lymphocytes % (Manual) 12.0 L Monocytes % (Manual) Eosinophils % (Manual) Basophils % (Manual) Nucleated RBC % Seg Neutrophils # Seg Neutrophils # Man Lymphocytes # (Manual) Monocytes # (Manual) Eosinophils # (Manual) PT INR Fibrinogen dRVVT Confirm Interp Factor V Activity POC ABG pH 7.475 H POC ABG pCO2 33.3 L POC ABG pO2 140 H ABG pO2 ABG HCO3 ABG Hemoglobin Oxyhemoglobin Sodium Potassium Chloride Carbon Dioxide BUN Creatinine Glucose POC Glucose 141 H Lactic Acid Calcium Phosphorus Magnesium Direct Bilirubin AST ALT Alkaline Phosphatase Lactate Dehydrogenase Troponin T C-Reactive Protein Total Protein Albumin Prealbumin Triglycerides Cholesterol LDL Cholesterol Direct HDL Cholesterol Urine pH Urine WBC (Auto) Urine Creatinine Urine Total Protein Fluid Total Protein Vancomycin Trough Rheumatoid Factor Complement C4 Miscellaneous Test Crossmatch 10/05/16 10/05/16 10/05/16 05:00 05:09 12:58 WBC RBC Hgb Hct MCV MCH MCHC RDW Plt Count Lymph % (Auto) [place] % (Auto) Lymph # [place] # Baso # Seg Neutrophils % Seg Neuts % (Manual) Lymphocytes % (Manual) Monocytes % (Manual) Eosinophils % (Manual) Basophils % (Manual) Nucleated RBC % Seg Neutrophils # Seg Neutrophils # Man Lymphocytes # (Manual) Monocytes # (Manual) Eosinophils # (Manual) PT INR Fibrinogen dRVVT Confirm Interp Factor V Activity POC ABG pH POC ABG pCO2 POC ABG pO2 ABG pO2 ABG HCO3 ABG Hemoglobin Oxyhemoglobin Sodium 131 L Potassium Chloride 94.0 L Carbon Dioxide 20 L BUN 22 H Creatinine 2.0 H Glucose 123 H POC Glucose 166 H 179 H Lactic Acid Calcium 7.7 L Phosphorus 2.20 L D Magnesium Direct Bilirubin AST ALT Alkaline Phosphatase Lactate Dehydrogenase Troponin T C-Reactive Protein Total Protein Albumin Prealbumin Triglycerides Cholesterol LDL Cholesterol Direct HDL Cholesterol Urine pH Urine WBC (Auto) Urine Creatinine Urine Total Protein Fluid Total Protein Vancomycin Trough Rheumatoid Factor Complement C4 Miscellaneous Test Crossmatch 10/05/16 10/05/16 10/05/16 15:50 18:53 23:12 WBC RBC Hgb Hct MCV MCH MCHC RDW Plt Count Lymph % (Auto) [place] % (Auto) Lymph # [place] # Baso # Seg Neutrophils % Seg Neuts % (Manual) Lymphocytes % (Manual) Monocytes % (Manual) Eosinophils % (Manual) Basophils % (Manual) Nucleated RBC % Seg Neutrophils # Seg Neutrophils # Man Lymphocytes # (Manual) Monocytes # (Manual) Eosinophils # (Manual) PT INR Fibrinogen dRVVT Confirm Interp Factor V Activity POC ABG pH POC ABG pCO2 POC ABG pO2 ABG pO2 ABG HCO3 ABG Hemoglobin Oxyhemoglobin Sodium Potassium Chloride Carbon Dioxide BUN Creatinine Glucose POC Glucose 150 H 164 H Lactic Acid Calcium Phosphorus Magnesium Direct Bilirubin AST ALT Alkaline Phosphatase Lactate Dehydrogenase Troponin T C-Reactive Protein Total Protein Albumin Prealbumin Triglycerides Cholesterol LDL Cholesterol Direct HDL Cholesterol Urine pH Urine WBC (Auto) Urine Creatinine Urine Total Protein Fluid Total Protein Vancomycin Trough Rheumatoid Factor Complement C4 Miscellaneous Test Crossmatch See Detail 10/06/16 10/06/16 10/06/16 03:50 03:50 04:53 WBC RBC 3.00 L Hgb 8.6 L Hct 25.8 L MCV MCH MCHC RDW 17.9 H Plt Count 65 L Lymph % (Auto) [place] % (Auto) Lymph # [place] # Baso # Seg Neutrophils % Seg Neuts % (Manual) 30.0 L Lymphocytes % (Manual) 5.0 L Monocytes % (Manual) Eosinophils % (Manual) Basophils % (Manual) Nucleated RBC % Seg Neutrophils # Seg Neutrophils # Man Lymphocytes # (Manual) 0.4 L Monocytes # (Manual) Eosinophils # (Manual) PT INR Fibrinogen dRVVT Confirm Interp Factor V Activity POC ABG pH 7.310 L POC ABG pCO2 49.0 H POC ABG pO2 ABG pO2 ABG HCO3 ABG Hemoglobin Oxyhemoglobin Sodium 133 L Potassium Chloride 95.9 L Carbon Dioxide BUN 26 H Creatinine 2.0 H Glucose 116 H POC Glucose Lactic Acid Calcium 7.8 L Phosphorus Magnesium Direct Bilirubin AST ALT Alkaline Phosphatase Lactate Dehydrogenase Troponin T C-Reactive Protein Total Protein Albumin Prealbumin Triglycerides Cholesterol LDL Cholesterol Direct HDL Cholesterol Urine pH Urine WBC (Auto) Urine Creatinine Urine Total Protein Fluid Total Protein Vancomycin Trough Rheumatoid Factor Complement C4 Miscellaneous Test Crossmatch 10/06/16 10/06/16 10/06/16 05:23 11:52 18:34 WBC RBC Hgb Hct MCV MCH MCHC RDW Plt Count Lymph % (Auto) [place] % (Auto) Lymph # [place] # Baso # Seg Neutrophils % Seg Neuts % (Manual) Lymphocytes % (Manual) Monocytes % (Manual) Eosinophils % (Manual) Basophils % (Manual) Nucleated RBC % Seg Neutrophils # Seg Neutrophils # Man Lymphocytes # (Manual) Monocytes # (Manual) Eosinophils # (Manual) PT INR Fibrinogen dRVVT Confirm Interp Factor V Activity POC ABG pH POC ABG pCO2 POC ABG pO2 ABG pO2 ABG HCO3 ABG Hemoglobin Oxyhemoglobin Sodium Potassium Chloride Carbon Dioxide BUN Creatinine Glucose POC Glucose 126 H 116 H 129 H Lactic Acid Calcium Phosphorus Magnesium Direct Bilirubin AST ALT Alkaline Phosphatase Lactate Dehydrogenase Troponin T C-Reactive Protein Total Protein Albumin Prealbumin Triglycerides Cholesterol LDL Cholesterol Direct HDL Cholesterol Urine pH Urine WBC (Auto) Urine Creatinine Urine Total Protein Fluid Total Protein Vancomycin Trough Rheumatoid Factor Complement C4 Miscellaneous Test Crossmatch 10/07/16 10/07/16 10/07/16 03:45 05:00 10:00 WBC 17.0 H RBC 2.68 L Hgb 7.3 L Hct 25.3 L MCV MCH 27 L MCHC 29 L RDW 19.6 H Plt Count 74 L Lymph % (Auto) [place] % (Auto) Lymph # [place] # Baso # Seg Neutrophils % Seg Neuts % (Manual) Lymphocytes % (Manual) 12.0 L Monocytes % (Manual) Eosinophils % (Manual) Basophils % (Manual) Nucleated RBC % 4.0 H Seg Neutrophils # Seg Neutrophils # Man 10.7 H Lymphocytes # (Manual) Monocytes # (Manual) Eosinophils # (Manual) PT INR Fibrinogen dRVVT Confirm Interp Factor V Activity POC ABG pH POC ABG pCO2 POC ABG pO2 ABG pO2 ABG HCO3 ABG Hemoglobin Oxyhemoglobin Sodium 130 L Potassium 3.2 L Chloride 93.9 L Carbon Dioxide 20 L BUN 44 H Creatinine 2.7 H Glucose 129 H POC Glucose Lactic Acid Calcium 7.4 L Phosphorus Magnesium Direct Bilirubin AST ALT 6 L Alkaline Phosphatase 195 H Lactate Dehydrogenase Troponin T C-Reactive Protein Total Protein 4.9 L Albumin 1.0 L Prealbumin Triglycerides Cholesterol LDL Cholesterol Direct HDL Cholesterol Urine pH Urine WBC (Auto) Urine Creatinine Urine Total Protein Fluid Total Protein Vancomycin Trough Rheumatoid Factor Complement C4 Miscellaneous Test Flexitest 1 H Crossmatch 10/07/16 10/07/16 10/07/16 10:00 11:24 18:10 WBC RBC Hgb Hct MCV MCH MCHC RDW Plt Count Lymph % (Auto) [place] % (Auto) Lymph # [place] # Baso # Seg Neutrophils % Seg Neuts % (Manual) Lymphocytes % (Manual) Monocytes % (Manual) Eosinophils % (Manual) Basophils % (Manual) Nucleated RBC % Seg Neutrophils # Seg Neutrophils # Man Lymphocytes # (Manual) Monocytes # (Manual) Eosinophils # (Manual) PT INR Fibrinogen dRVVT Confirm Interp Factor V Activity POC ABG pH POC ABG pCO2 POC ABG pO2 ABG pO2 ABG HCO3 ABG Hemoglobin Oxyhemoglobin Sodium Potassium Chloride Carbon Dioxide BUN Creatinine Glucose POC Glucose 116 H 130 H Lactic Acid Calcium Phosphorus Magnesium Direct Bilirubin AST ALT Alkaline Phosphatase Lactate Dehydrogenase Troponin T C-Reactive Protein 19.40 H Total Protein Albumin Prealbumin Triglycerides Cholesterol LDL Cholesterol Direct HDL Cholesterol Urine pH Urine WBC (Auto) Urine Creatinine Urine Total Protein Fluid Total Protein Vancomycin Trough Rheumatoid Factor Complement C4 Miscellaneous Test Crossmatch 10/07/16 10/08/16 10/08/16 18:30 00:00 04:00 WBC RBC Hgb Hct MCV MCH MCHC RDW Plt Count Lymph % (Auto) [place] % (Auto) Lymph # [place] # Baso # Seg Neutrophils % Seg Neuts % (Manual) Lymphocytes % (Manual) Monocytes % (Manual) Eosinophils % (Manual) Basophils % (Manual) Nucleated RBC % Seg Neutrophils # Seg Neutrophils # Man Lymphocytes # (Manual) Monocytes # (Manual) Eosinophils # (Manual) PT INR Fibrinogen dRVVT Confirm Interp Factor V Activity POC ABG pH POC ABG pCO2 POC ABG pO2 ABG pO2 ABG HCO3 ABG Hemoglobin Oxyhemoglobin Sodium 132 L Potassium 3.3 L Chloride 93.6 L Carbon Dioxide 17 L BUN 59 H Creatinine 2.7 H Glucose 121 H POC Glucose 122 H Lactic Acid Calcium 7.6 L Phosphorus Magnesium Direct Bilirubin AST ALT Alkaline Phosphatase Lactate Dehydrogenase Troponin T C-Reactive Protein Total Protein Albumin Prealbumin Triglycerides Cholesterol LDL Cholesterol Direct HDL Cholesterol Urine pH Urine WBC (Auto) > 182.0 H Urine Creatinine Urine Total Protein Fluid Total Protein Vancomycin Trough Rheumatoid Factor Complement C4 Miscellaneous Test Crossmatch 10/08/16 10/08/16 10/08/16 04:30 05:30 11:51 WBC RBC 5.15 H Hgb 14.4 H D Hct 44.5 H D MCV MCH MCHC RDW 19.5 H Plt Count 56 L Lymph % (Auto) [place] % (Auto) Lymph # [place] # Baso # Seg Neutrophils % Seg Neuts % (Manual) 24.0 L Lymphocytes % (Manual) 8.0 L Monocytes % (Manual) Eosinophils % (Manual) Basophils % (Manual) Nucleated RBC % 9.0 H Seg Neutrophils # Seg Neutrophils # Man Lymphocytes # (Manual) 0.7 L Monocytes # (Manual) Eosinophils # (Manual) PT INR Fibrinogen dRVVT Confirm Interp Factor V Activity POC ABG pH POC ABG pCO2 POC ABG pO2 ABG pO2 ABG HCO3 ABG Hemoglobin Oxyhemoglobin Sodium Potassium Chloride Carbon Dioxide BUN Creatinine Glucose POC Glucose 125 H 150 H Lactic Acid Calcium Phosphorus Magnesium Direct Bilirubin AST ALT Alkaline Phosphatase Lactate Dehydrogenase Troponin T C-Reactive Protein Total Protein Albumin Prealbumin Triglycerides Cholesterol LDL Cholesterol Direct HDL Cholesterol Urine pH Urine WBC (Auto) Urine Creatinine Urine Total Protein Fluid Total Protein Vancomycin Trough Rheumatoid Factor Complement C4 Miscellaneous Test Crossmatch 10/08/16 10/08/16 10/08/16 12:49 17:07 19:30 WBC RBC Hgb 7.1 L D Hct 22.4 L D MCV MCH MCHC RDW Plt Count Lymph % (Auto) [place] % (Auto) Lymph # [place] # Baso # Seg Neutrophils % Seg Neuts % (Manual) Lymphocytes % (Manual) Monocytes % (Manual) Eosinophils % (Manual) Basophils % (Manual) Nucleated RBC % Seg Neutrophils # Seg Neutrophils # Man Lymphocytes # (Manual) Monocytes # (Manual) Eosinophils # (Manual) PT INR Fibrinogen dRVVT Confirm Interp Factor V Activity POC ABG pH POC ABG pCO2 28.2 L POC ABG pO2 111 H ABG pO2 ABG HCO3 ABG Hemoglobin Oxyhemoglobin Sodium Potassium Chloride Carbon Dioxide BUN Creatinine Glucose POC Glucose 145 H Lactic Acid Calcium Phosphorus Magnesium Direct Bilirubin AST ALT Alkaline Phosphatase Lactate Dehydrogenase Troponin T C-Reactive Protein Total Protein Albumin Prealbumin Triglycerides Cholesterol LDL Cholesterol Direct HDL Cholesterol Urine pH Urine WBC (Auto) Urine Creatinine Urine Total Protein Fluid Total Protein Vancomycin Trough Rheumatoid Factor Complement C4 Miscellaneous Test Crossmatch 10/08/16 10/09/16 10/09/16 19:30 03:45 03:45 WBC 12.6 H RBC 2.36 L Hgb 6.7 L Hct 21.1 L MCV MCH MCHC RDW 19.5 H Plt Count 75 L Lymph % (Auto) [place] % (Auto) Lymph # [place] # Baso # Seg Neutrophils % Seg Neuts % (Manual) Lymphocytes % (Manual) Monocytes % (Manual) 10.0 H Eosinophils % (Manual) Basophils % (Manual) Nucleated RBC % 3.0 H Seg Neutrophils # Seg Neutrophils # Man Lymphocytes # (Manual) Monocytes # (Manual) 1.3 H Eosinophils # (Manual) PT 18.0 H INR 1.41 H Fibrinogen dRVVT Confirm Interp Factor V Activity POC ABG pH POC ABG pCO2 POC ABG pO2 ABG pO2 ABG HCO3 ABG Hemoglobin Oxyhemoglobin Sodium 135 L Potassium Chloride Carbon Dioxide 17 L BUN 81 H Creatinine 3.2 H Glucose 109 H POC Glucose Lactic Acid Calcium 7.4 L Phosphorus 4.60 H D Magnesium Direct Bilirubin AST ALT Alkaline Phosphatase Lactate Dehydrogenase Troponin T C-Reactive Protein Total Protein Albumin Prealbumin Triglycerides Cholesterol LDL Cholesterol Direct HDL Cholesterol Urine pH Urine WBC (Auto) Urine Creatinine Urine Total Protein Fluid Total Protein Vancomycin Trough Rheumatoid Factor Complement C4 Miscellaneous Test Crossmatch 10/09/16 10/09/16 10/09/16 03:45 05:14 07:20 WBC RBC Hgb Hct MCV MCH MCHC RDW Plt Count Lymph % (Auto) [place] % (Auto) Lymph # [place] # Baso # Seg Neutrophils % Seg Neuts % (Manual) Lymphocytes % (Manual) Monocytes % (Manual) Eosinophils % (Manual) Basophils % (Manual) Nucleated RBC % Seg Neutrophils # Seg Neutrophils # Man Lymphocytes # (Manual) Monocytes # (Manual) Eosinophils # (Manual) PT 19.0 H INR 1.51 H Fibrinogen dRVVT Confirm Interp Factor V Activity POC ABG pH POC ABG pCO2 POC ABG pO2 ABG pO2 ABG HCO3 ABG Hemoglobin Oxyhemoglobin Sodium Potassium Chloride Carbon Dioxide BUN Creatinine Glucose POC Glucose 151 H Lactic Acid Calcium Phosphorus Magnesium Direct Bilirubin AST ALT Alkaline Phosphatase Lactate Dehydrogenase Troponin T C-Reactive Protein Total Protein Albumin Prealbumin Triglycerides Cholesterol LDL Cholesterol Direct HDL Cholesterol Urine pH Urine WBC (Auto) Urine Creatinine Urine Total Protein Fluid Total Protein Vancomycin Trough Rheumatoid Factor Complement C4 Miscellaneous Test Crossmatch See Detail 10/09/16 10/09/16 10/09/16 11:46 16:20 16:43 WBC RBC Hgb 7.2 L Hct 22.2 L MCV MCH MCHC RDW Plt Count Lymph % (Auto) [place] % (Auto) Lymph # [place] # Baso # Seg Neutrophils % Seg Neuts % (Manual) Lymphocytes % (Manual) Monocytes % (Manual) Eosinophils % (Manual) Basophils % (Manual) Nucleated RBC % Seg Neutrophils # Seg Neutrophils # Man Lymphocytes # (Manual) Monocytes # (Manual) Eosinophils # (Manual) PT INR Fibrinogen dRVVT Confirm Interp Factor V Activity POC ABG pH POC ABG pCO2 POC ABG pO2 ABG pO2 ABG HCO3 ABG Hemoglobin Oxyhemoglobin Sodium Potassium Chloride Carbon Dioxide BUN Creatinine Glucose POC Glucose 133 H 141 H Lactic Acid Calcium Phosphorus Magnesium Direct Bilirubin AST ALT Alkaline Phosphatase Lactate Dehydrogenase Troponin T C-Reactive Protein Total Protein Albumin Prealbumin Triglycerides Cholesterol LDL Cholesterol Direct HDL Cholesterol Urine pH Urine WBC (Auto) Urine Creatinine Urine Total Protein Fluid Total Protein Vancomycin Trough Rheumatoid Factor Complement C4 Miscellaneous Test Crossmatch 10/10/16 10/10/16 10/10/16 05:00 05:00 11:19 WBC 18.5 H RBC 2.19 L Hgb 6.4 L Hct 19.6 L* MCV MCH MCHC RDW 19.3 H Plt Count 93 L Lymph % (Auto) [place] % (Auto) Lymph # [place] # Baso # Seg Neutrophils % Seg Neuts % (Manual) Lymphocytes % (Manual) 10.0 L Monocytes % (Manual) Eosinophils % (Manual) Basophils % (Manual) Nucleated RBC % 4.0 H Seg Neutrophils # Seg Neutrophils # Man 11.3 H Lymphocytes # (Manual) Monocytes # (Manual) Eosinophils # (Manual) PT INR Fibrinogen dRVVT Confirm Interp Factor V Activity POC ABG pH POC ABG pCO2 POC ABG pO2 ABG pO2 ABG HCO3 ABG Hemoglobin Oxyhemoglobin Sodium Potassium 5.7 H D Chloride Carbon Dioxide 16 L BUN 94 H Creatinine 3.1 H Glucose 131 H POC Glucose 153 H Lactic Acid Calcium 8.2 L Phosphorus 5.10 H Magnesium 2.40 H Direct Bilirubin 0.3 H AST ALT < 5 L Alkaline Phosphatase 319 H Lactate Dehydrogenase Troponin T C-Reactive Protein Total Protein 5.1 L Albumin 1.0 L Prealbumin Triglycerides Cholesterol LDL Cholesterol Direct HDL Cholesterol Urine pH Urine WBC (Auto) Urine Creatinine Urine Total Protein Fluid Total Protein Vancomycin Trough Rheumatoid Factor Complement C4 Miscellaneous Test Crossmatch 0810/10/16 10/11/16 17:50 23:30 04:15 WBC RBC Hgb Hct MCV MCH MCHC RDW Plt Count Lymph % (Auto) [place] % (Auto) Lymph # [place] # Baso # Seg Neutrophils % Seg Neuts % (Manual) Lymphocytes % (Manual) Monocytes % (Manual) Eosinophils % (Manual) Basophils % (Manual) Nucleated RBC % Seg Neutrophils # Seg Neutrophils # Man Lymphocytes # (Manual) Monocytes # (Manual) Eosinophils # (Manual) PT INR Fibrinogen dRVVT Confirm Interp Factor V Activity POC ABG pH POC ABG pCO2 POC ABG pO2 ABG pO2 ABG HCO3 ABG Hemoglobin Oxyhemoglobin Sodium Potassium Chloride 96.4 L Carbon Dioxide 21 L BUN 57 H Creatinine 2.1 H Glucose 151 H POC Glucose 146 H 141 H Lactic Acid Calcium 8.3 L Phosphorus Magnesium Direct Bilirubin AST ALT Alkaline Phosphatase Lactate Dehydrogenase Troponin T C-Reactive Protein Total Protein Albumin Prealbumin Triglycerides Cholesterol LDL Cholesterol Direct HDL Cholesterol Urine pH Urine WBC (Auto) Urine Creatinine Urine Total Protein Fluid Total Protein Vancomycin Trough Rheumatoid Factor Complement C4 Miscellaneous Test Crossmatch 10/11/16 10/11/16 10/11/16 04:15 04:15 05:30 WBC 28.3 H RBC 3.12 L Hgb 9.3 L Hct 28.7 L D MCV MCH MCHC RDW 17.7 H Plt Count 128 L Lymph % (Auto) [place] % (Auto) Lymph # [place] # Baso # Seg Neutrophils % Seg Neuts % (Manual) Lymphocytes % (Manual) Monocytes % (Manual) Eosinophils % (Manual) Basophils % (Manual) Nucleated RBC % Seg Neutrophils # Seg Neutrophils # Man Lymphocytes # (Manual) Monocytes # (Manual) Eosinophils # (Manual) PT INR Fibrinogen dRVVT Confirm Interp Factor V Activity POC ABG pH POC ABG pCO2 POC ABG pO2 ABG pO2 ABG HCO3 ABG Hemoglobin Oxyhemoglobin Sodium Potassium Chloride Carbon Dioxide BUN Creatinine Glucose POC Glucose 167 H Lactic Acid Calcium Phosphorus Magnesium Direct Bilirubin AST ALT Alkaline Phosphatase Lactate Dehydrogenase Troponin T C-Reactive Protein 15.80 H Total Protein Albumin Prealbumin Triglycerides Cholesterol LDL Cholesterol Direct HDL Cholesterol Urine pH Urine WBC (Auto) Urine Creatinine Urine Total Protein Fluid Total Protein Vancomycin Trough Rheumatoid Factor Complement C4 Miscellaneous Test Crossmatch 10/11/16 10/11/16 10/11/16 11:40 15:49 23:57 WBC RBC Hgb Hct MCV MCH MCHC RDW Plt Count Lymph % (Auto) [place] % (Auto) Lymph # [place] # Baso # Seg Neutrophils % Seg Neuts % (Manual) Lymphocytes % (Manual) Monocytes % (Manual) Eosinophils % (Manual) Basophils % (Manual) Nucleated RBC % Seg Neutrophils # Seg Neutrophils # Man Lymphocytes # (Manual) Monocytes # (Manual) Eosinophils # (Manual) PT INR Fibrinogen dRVVT Confirm Interp Factor V Activity POC ABG pH POC ABG pCO2 POC ABG pO2 ABG pO2 ABG HCO3 ABG Hemoglobin Oxyhemoglobin Sodium Potassium Chloride Carbon Dioxide BUN Creatinine Glucose POC Glucose 139 H 168 H 161 H Lactic Acid Calcium Phosphorus Magnesium Direct Bilirubin AST ALT Alkaline Phosphatase Lactate Dehydrogenase Troponin T C-Reactive Protein Total Protein Albumin Prealbumin Triglycerides Cholesterol LDL Cholesterol Direct HDL Cholesterol Urine pH Urine WBC (Auto) Urine Creatinine Urine Total Protein Fluid Total Protein Vancomycin Trough Rheumatoid Factor Complement C4 Miscellaneous Test Crossmatch 10/12/16 10/12/16 10/12/16 04:40 04:40 05:44 WBC 22.5 H RBC 2.88 L Hgb 8.8 L Hct 26.8 L MCV MCH MCHC RDW 17.8 H Plt Count Lymph % (Auto) [place] % (Auto) Lymph # [place] # Baso # Seg Neutrophils % Seg Neuts % (Manual) Lymphocytes % (Manual) Monocytes % (Manual) Eosinophils % (Manual) Basophils % (Manual) Nucleated RBC % Seg Neutrophils # Seg Neutrophils # Man Lymphocytes # (Manual) Monocytes # (Manual) Eosinophils # (Manual) PT INR Fibrinogen dRVVT Confirm Interp Factor V Activity POC ABG pH POC ABG pCO2 POC ABG pO2 ABG pO2 ABG HCO3 ABG Hemoglobin Oxyhemoglobin Sodium 134 L Potassium Chloride 93.0 L Carbon Dioxide BUN 74 H Creatinine 2.5 H Glucose 137 H POC Glucose 158 H Lactic Acid Calcium 8.2 L Phosphorus Magnesium Direct Bilirubin AST ALT Alkaline Phosphatase Lactate Dehydrogenase Troponin T C-Reactive Protein Total Protein Albumin Prealbumin Triglycerides Cholesterol LDL Cholesterol Direct HDL Cholesterol Urine pH Urine WBC (Auto) Urine Creatinine Urine Total Protein Fluid Total Protein Vancomycin Trough Rheumatoid Factor Complement C4 Miscellaneous Test Crossmatch 10/12/16 10/12/16 10/12/16 12:27 18:18 23:46 WBC RBC Hgb Hct MCV MCH MCHC RDW Plt Count Lymph % (Auto) [place] % (Auto) Lymph # [place] # Baso # Seg Neutrophils % Seg Neuts % (Manual) Lymphocytes % (Manual) Monocytes % (Manual) Eosinophils % (Manual) Basophils % (Manual) Nucleated RBC % Seg Neutrophils # Seg Neutrophils # Man Lymphocytes # (Manual) Monocytes # (Manual) Eosinophils # (Manual) PT INR Fibrinogen dRVVT Confirm Interp Factor V Activity POC ABG pH POC ABG pCO2 POC ABG pO2 ABG pO2 ABG HCO3 ABG Hemoglobin Oxyhemoglobin Sodium Potassium Chloride Carbon Dioxide BUN Creatinine Glucose POC Glucose 153 H 140 H 150 H Lactic Acid Calcium Phosphorus Magnesium Direct Bilirubin AST ALT Alkaline Phosphatase Lactate Dehydrogenase Troponin T C-Reactive Protein Total Protein Albumin Prealbumin Triglycerides Cholesterol LDL Cholesterol Direct HDL Cholesterol Urine pH Urine WBC (Auto) Urine Creatinine Urine Total Protein Fluid Total Protein Vancomycin Trough Rheumatoid Factor Complement C4 Miscellaneous Test Crossmatch 10/13/16 10/13/16 10/13/16 06:22 09:20 12:29 WBC RBC Hgb Hct MCV MCH MCHC RDW Plt Count Lymph % (Auto) [place] % (Auto) Lymph # [place] # Baso # Seg Neutrophils % Seg Neuts % (Manual) Lymphocytes % (Manual) Monocytes % (Manual) Eosinophils % (Manual) Basophils % (Manual) Nucleated RBC % Seg Neutrophils # Seg Neutrophils # Man Lymphocytes # (Manual) Monocytes # (Manual) Eosinophils # (Manual) PT INR Fibrinogen dRVVT Confirm Interp Factor V Activity POC ABG pH POC ABG pCO2 POC ABG pO2 ABG pO2 ABG HCO3 ABG Hemoglobin Oxyhemoglobin Sodium Potassium Chloride Carbon Dioxide BUN Creatinine Glucose POC Glucose 165 H 193 H Lactic Acid Calcium Phosphorus Magnesium Direct Bilirubin AST ALT Alkaline Phosphatase Lactate Dehydrogenase Troponin T C-Reactive Protein Total Protein Albumin Prealbumin Triglycerides Cholesterol LDL Cholesterol Direct HDL Cholesterol Urine pH Urine WBC (Auto) Urine Creatinine Urine Total Protein Fluid Total Protein Vancomycin Trough Rheumatoid Factor Complement C4 Miscellaneous Test Flexitest 1 H Crossmatch 10/13/16 10/13/16 10/13/16 18:09 Unknown Unknown WBC 23.4 H RBC 2.83 L Hgb 8.7 L Hct 26.1 L MCV MCH MCHC RDW 18.1 H Plt Count Lymph % (Auto) [place] % (Auto) Lymph # [place] # Baso # Seg Neutrophils % Seg Neuts % (Manual) Lymphocytes % (Manual) Monocytes % (Manual) Eosinophils % (Manual) Basophils % (Manual) Nucleated RBC % Seg Neutrophils # Seg Neutrophils # Man Lymphocytes # (Manual) Monocytes # (Manual) Eosinophils # (Manual) PT INR Fibrinogen dRVVT Confirm Interp Factor V Activity POC ABG pH POC ABG pCO2 POC ABG pO2 ABG pO2 ABG HCO3 ABG Hemoglobin Oxyhemoglobin Sodium Potassium Chloride 95.8 L Carbon Dioxide BUN 82 H Creatinine 2.6 H Glucose 152 H POC Glucose 166 H Lactic Acid Calcium Phosphorus Magnesium Direct Bilirubin AST ALT Alkaline Phosphatase Lactate Dehydrogenase Troponin T C-Reactive Protein Total Protein Albumin Prealbumin Triglycerides Cholesterol LDL Cholesterol Direct HDL Cholesterol Urine pH Urine WBC (Auto) Urine Creatinine Urine Total Protein Fluid Total Protein Vancomycin Trough Rheumatoid Factor Complement C4 Miscellaneous Test Crossmatch 10/14/16 10/14/16 10/14/16 05:38 06:35 08:10 WBC 20.7 H RBC 2.81 L Hgb 8.4 L Hct 27.2 L MCV MCH MCHC RDW 19.4 H Plt Count Lymph % (Auto) [place] % (Auto) Lymph # [place] # Baso # Seg Neutrophils % Seg Neuts % (Manual) Lymphocytes % (Manual) Monocytes % (Manual) Eosinophils % (Manual) Basophils % (Manual) Nucleated RBC % Seg Neutrophils # Seg Neutrophils # Man Lymphocytes # (Manual) Monocytes # (Manual) Eosinophils # (Manual) PT INR Fibrinogen dRVVT Confirm Interp Factor V Activity POC ABG pH POC ABG pCO2 POC ABG pO2 ABG pO2 ABG HCO3 ABG Hemoglobin Oxyhemoglobin Sodium Potassium Chloride Carbon Dioxide BUN 58 H Creatinine 1.9 H Glucose 169 H POC Glucose 195 H Lactic Acid Calcium Phosphorus Magnesium Direct Bilirubin AST ALT Alkaline Phosphatase Lactate Dehydrogenase Troponin T C-Reactive Protein Total Protein Albumin Prealbumin Triglycerides Cholesterol LDL Cholesterol Direct HDL Cholesterol Urine pH Urine WBC (Auto) Urine Creatinine Urine Total Protein Fluid Total Protein Vancomycin Trough Rheumatoid Factor Complement C4 Miscellaneous Test Crossmatch 10/14/16 10/14/16 10/14/16 11:44 17:13 23:28 WBC RBC Hgb Hct MCV MCH MCHC RDW Plt Count Lymph % (Auto) [place] % (Auto) Lymph # [place] # Baso # Seg Neutrophils % Seg Neuts % (Manual) Lymphocytes % (Manual) Monocytes % (Manual) Eosinophils % (Manual) Basophils % (Manual) Nucleated RBC % Seg Neutrophils # Seg Neutrophils # Man Lymphocytes # (Manual) Monocytes # (Manual) Eosinophils # (Manual) PT INR Fibrinogen dRVVT Confirm Interp Factor V Activity POC ABG pH POC ABG pCO2 POC ABG pO2 ABG pO2 ABG HCO3 ABG Hemoglobin Oxyhemoglobin Sodium Potassium Chloride Carbon Dioxide BUN Creatinine Glucose POC Glucose 174 H 121 H 151 H Lactic Acid Calcium Phosphorus Magnesium Direct Bilirubin AST ALT Alkaline Phosphatase Lactate Dehydrogenase Troponin T C-Reactive Protein Total Protein Albumin Prealbumin Triglycerides Cholesterol LDL Cholesterol Direct HDL Cholesterol Urine pH Urine WBC (Auto) Urine Creatinine Urine Total Protein Fluid Total Protein Vancomycin Trough Rheumatoid Factor Complement C4 Miscellaneous Test Crossmatch 10/15/16 10/15/16 10/15/16 05:06 12:26 17:48 WBC RBC Hgb Hct MCV MCH MCHC RDW Plt Count Lymph % (Auto) [place] % (Auto) Lymph # [place] # Baso # Seg Neutrophils % Seg Neuts % (Manual) Lymphocytes % (Manual) Monocytes % (Manual) Eosinophils % (Manual) Basophils % (Manual) Nucleated RBC % Seg Neutrophils # Seg Neutrophils # Man Lymphocytes # (Manual) Monocytes # (Manual) Eosinophils # (Manual) PT INR Fibrinogen dRVVT Confirm Interp Factor V Activity POC ABG pH POC ABG pCO2 POC ABG pO2 ABG pO2 ABG HCO3 ABG Hemoglobin Oxyhemoglobin Sodium Potassium Chloride Carbon Dioxide BUN Creatinine Glucose POC Glucose 151 H 149 H 153 H Lactic Acid Calcium Phosphorus Magnesium Direct Bilirubin AST ALT Alkaline Phosphatase Lactate Dehydrogenase Troponin T C-Reactive Protein Total Protein Albumin Prealbumin Triglycerides Cholesterol LDL Cholesterol Direct HDL Cholesterol Urine pH Urine WBC (Auto) Urine Creatinine Urine Total Protein Fluid Total Protein Vancomycin Trough Rheumatoid Factor Complement C4 Miscellaneous Test Crossmatch 10/15/16 10/15/16 10/16/16 Unknown Unknown 00:02 WBC 23.4 H RBC 2.78 L Hgb 8.5 L Hct 25.7 L MCV MCH MCHC RDW 18.7 H Plt Count Lymph % (Auto) [place] % (Auto) Lymph # [place] # Baso # Seg Neutrophils % Seg Neuts % (Manual) Lymphocytes % (Manual) Monocytes % (Manual) Eosinophils % (Manual) Basophils % (Manual) Nucleated RBC % Seg Neutrophils # Seg Neutrophils # Man Lymphocytes # (Manual) Monocytes # (Manual) Eosinophils # (Manual) PT INR Fibrinogen dRVVT Confirm Interp Factor V Activity POC ABG pH POC ABG pCO2 POC ABG pO2 ABG pO2 ABG HCO3 ABG Hemoglobin Oxyhemoglobin Sodium Potassium Chloride Carbon Dioxide BUN 73 H Creatinine 2.3 H Glucose 120 H POC Glucose 137 H Lactic Acid Calcium Phosphorus Magnesium Direct Bilirubin AST ALT Alkaline Phosphatase Lactate Dehydrogenase Troponin T C-Reactive Protein Total Protein Albumin Prealbumin Triglycerides Cholesterol LDL Cholesterol Direct HDL Cholesterol Urine pH Urine WBC (Auto) Urine Creatinine Urine Total Protein Fluid Total Protein Vancomycin Trough Rheumatoid Factor Complement C4 Miscellaneous Test Crossmatch 10/16/16 10/16/16 10/16/16 05:44 06:25 06:25 WBC 22.5 H RBC 2.76 L Hgb 8.3 L Hct 25.2 L MCV MCH MCHC RDW 18.3 H Plt Count Lymph % (Auto) [place] % (Auto) Lymph # [place] # Baso # Seg Neutrophils % Seg Neuts % (Manual) Lymphocytes % (Manual) Monocytes % (Manual) Eosinophils % (Manual) Basophils % (Manual) Nucleated RBC % Seg Neutrophils # Seg Neutrophils # Man Lymphocytes # (Manual) Monocytes # (Manual) Eosinophils # (Manual) PT INR Fibrinogen dRVVT Confirm Interp Factor V Activity POC ABG pH POC ABG pCO2 POC ABG pO2 ABG pO2 ABG HCO3 ABG Hemoglobin Oxyhemoglobin Sodium Potassium Chloride Carbon Dioxide BUN 92 H Creatinine 3.0 H Glucose 138 H POC Glucose 110 H Lactic Acid Calcium Phosphorus Magnesium Direct Bilirubin AST ALT Alkaline Phosphatase Lactate Dehydrogenase Troponin T C-Reactive Protein Total Protein Albumin Prealbumin Triglycerides Cholesterol LDL Cholesterol Direct HDL Cholesterol Urine pH Urine WBC (Auto) Urine Creatinine Urine Total Protein Fluid Total Protein Vancomycin Trough Rheumatoid Factor Complement C4 Miscellaneous Test Crossmatch 10/16/16 10/16/16 10/16/16 11:27 11:48 17:36 WBC RBC Hgb Hct MCV MCH MCHC RDW Plt Count Lymph % (Auto) [place] % (Auto) Lymph # [place] # Baso # Seg Neutrophils % Seg Neuts % (Manual) Lymphocytes % (Manual) Monocytes % (Manual) Eosinophils % (Manual) Basophils % (Manual) Nucleated RBC % Seg Neutrophils # Seg Neutrophils # Man Lymphocytes # (Manual) Monocytes # (Manual) Eosinophils # (Manual) PT INR Fibrinogen dRVVT Confirm Interp Factor V Activity POC ABG pH 7.582 H POC ABG pCO2 27.4 L POC ABG pO2 110 H ABG pO2 ABG HCO3 ABG Hemoglobin Oxyhemoglobin Sodium Potassium Chloride Carbon Dioxide BUN Creatinine Glucose POC Glucose 121 H 133 H Lactic Acid Calcium Phosphorus Magnesium Direct Bilirubin AST ALT Alkaline Phosphatase Lactate Dehydrogenase Troponin T C-Reactive Protein Total Protein Albumin Prealbumin Triglycerides Cholesterol LDL Cholesterol Direct HDL Cholesterol Urine pH Urine WBC (Auto) Urine Creatinine Urine Total Protein Fluid Total Protein Vancomycin Trough Rheumatoid Factor Complement C4 Miscellaneous Test Crossmatch 10/16/16 10/17/16 10/17/16 20:48 04:24 04:24 WBC 21.4 H RBC 2.72 L Hgb 8.0 L Hct 25.2 L MCV MCH MCHC RDW 18.0 H Plt Count Lymph % (Auto) [place] % (Auto) Lymph # [place] # Baso # Seg Neutrophils % Seg Neuts % (Manual) Lymphocytes % (Manual) Monocytes % (Manual) Eosinophils % (Manual) Basophils % (Manual) Nucleated RBC % Seg Neutrophils # Seg Neutrophils # Man Lymphocytes # (Manual) Monocytes # (Manual) Eosinophils # (Manual) PT INR Fibrinogen dRVVT Confirm Interp Factor V Activity POC ABG pH 7.561 H POC ABG pCO2 24.4 L POC ABG pO2 77 L ABG pO2 ABG HCO3 ABG Hemoglobin Oxyhemoglobin Sodium 148 H Potassium Chloride Carbon Dioxide BUN 104 H Creatinine 3.0 H Glucose 149 H POC Glucose Lactic Acid Calcium Phosphorus Magnesium Direct Bilirubin AST ALT Alkaline Phosphatase 138 H Lactate Dehydrogenase Troponin T C-Reactive Protein Total Protein 6.2 L Albumin 1.5 L Prealbumin Triglycerides Cholesterol LDL Cholesterol Direct HDL Cholesterol Urine pH Urine WBC (Auto) Urine Creatinine Urine Total Protein Fluid Total Protein Vancomycin Trough Rheumatoid Factor Complement C4 Miscellaneous Test Crossmatch 10/17/16 10/17/16 10/17/16 06:02 12:17 17:14 WBC RBC Hgb Hct MCV MCH MCHC RDW Plt Count Lymph % (Auto) [place] % (Auto) Lymph # [place] # Baso # Seg Neutrophils % Seg Neuts % (Manual) Lymphocytes % (Manual) Monocytes % (Manual) Eosinophils % (Manual) Basophils % (Manual) Nucleated RBC % Seg Neutrophils # Seg Neutrophils # Man Lymphocytes # (Manual) Monocytes # (Manual) Eosinophils # (Manual) PT INR Fibrinogen dRVVT Confirm Interp Factor V Activity POC ABG pH POC ABG pCO2 POC ABG pO2 ABG pO2 ABG HCO3 ABG Hemoglobin Oxyhemoglobin Sodium Potassium Chloride Carbon Dioxide BUN Creatinine Glucose POC Glucose 170 H 167 H 126 H Lactic Acid Calcium Phosphorus Magnesium Direct Bilirubin AST ALT Alkaline Phosphatase Lactate Dehydrogenase Troponin T C-Reactive Protein Total Protein Albumin Prealbumin Triglycerides Cholesterol LDL Cholesterol Direct HDL Cholesterol Urine pH Urine WBC (Auto) Urine Creatinine Urine Total Protein Fluid Total Protein Vancomycin Trough Rheumatoid Factor Complement C4 Miscellaneous Test Crossmatch 10/17/16 10/18/16 10/18/16 23:17 04:00 04:00 WBC 20.7 H RBC 2.47 L Hgb 7.4 L Hct 22.9 L MCV MCH MCHC RDW 17.5 H Plt Count Lymph % (Auto) [place] % (Auto) Lymph # [place] # Baso # Seg Neutrophils % Seg Neuts % (Manual) Lymphocytes % (Manual) Monocytes % (Manual) Eosinophils % (Manual) Basophils % (Manual) Nucleated RBC % Seg Neutrophils # Seg Neutrophils # Man Lymphocytes # (Manual) Monocytes # (Manual) Eosinophils # (Manual) PT INR Fibrinogen dRVVT Confirm Interp Factor V Activity POC ABG pH POC ABG pCO2 POC ABG pO2 ABG pO2 ABG HCO3 ABG Hemoglobin Oxyhemoglobin Sodium 149 H Potassium Chloride 107.9 H Carbon Dioxide 20 L BUN 117 H Creatinine 3.2 H Glucose 119 H POC Glucose 121 H Lactic Acid Calcium Phosphorus Magnesium Direct Bilirubin AST ALT Alkaline Phosphatase Lactate Dehydrogenase Troponin T C-Reactive Protein Total Protein Albumin Prealbumin Triglycerides Cholesterol LDL Cholesterol Direct HDL Cholesterol Urine pH Urine WBC (Auto) Urine Creatinine Urine Total Protein Fluid Total Protein Vancomycin Trough Rheumatoid Factor Complement C4 Miscellaneous Test Crossmatch 10/18/16 10/18/16 10/18/16 05:23 10:46 17:30 WBC RBC Hgb Hct MCV MCH MCHC RDW Plt Count Lymph % (Auto) [place] % (Auto) Lymph # [place] # Baso # Seg Neutrophils % Seg Neuts % (Manual) Lymphocytes % (Manual) Monocytes % (Manual) Eosinophils % (Manual) Basophils % (Manual) Nucleated RBC % Seg Neutrophils # Seg Neutrophils # Man Lymphocytes # (Manual) Monocytes # (Manual) Eosinophils # (Manual) PT INR Fibrinogen dRVVT Confirm Interp Factor V Activity POC ABG pH POC ABG pCO2 POC ABG pO2 ABG pO2 ABG HCO3 ABG Hemoglobin Oxyhemoglobin Sodium Potassium Chloride Carbon Dioxide BUN Creatinine Glucose POC Glucose 119 H 155 H 124 H Lactic Acid Calcium Phosphorus Magnesium Direct Bilirubin AST ALT Alkaline Phosphatase Lactate Dehydrogenase Troponin T C-Reactive Protein Total Protein Albumin Prealbumin Triglycerides Cholesterol LDL Cholesterol Direct HDL Cholesterol Urine pH Urine WBC (Auto) Urine Creatinine Urine Total Protein Fluid Total Protein Vancomycin Trough Rheumatoid Factor Complement C4 Miscellaneous Test Crossmatch 10/19/16 10/19/16 10/19/16 04:00 04:00 05:25 WBC 17.4 H RBC 2.54 L Hgb 7.7 L Hct 23.6 L MCV MCH MCHC RDW 17.3 H Plt Count Lymph % (Auto) [place] % (Auto) Lymph # [place] # Baso # Seg Neutrophils % Seg Neuts % (Manual) Lymphocytes % (Manual) Monocytes % (Manual) Eosinophils % (Manual) Basophils % (Manual) Nucleated RBC % Seg Neutrophils # Seg Neutrophils # Man Lymphocytes # (Manual) Monocytes # (Manual) Eosinophils # (Manual) PT INR Fibrinogen dRVVT Confirm Interp Factor V Activity POC ABG pH POC ABG pCO2 POC ABG pO2 ABG pO2 ABG HCO3 ABG Hemoglobin Oxyhemoglobin Sodium Potassium Chloride Carbon Dioxide BUN 72 H Creatinine 2.1 H Glucose 116 H POC Glucose 119 H Lactic Acid Calcium Phosphorus Magnesium Direct Bilirubin AST ALT Alkaline Phosphatase Lactate Dehydrogenase Troponin T C-Reactive Protein Total Protein Albumin Prealbumin Triglycerides Cholesterol LDL Cholesterol Direct HDL Cholesterol Urine pH Urine WBC (Auto) Urine Creatinine Urine Total Protein Fluid Total Protein Vancomycin Trough Rheumatoid Factor Complement C4 Miscellaneous Test Crossmatch 10/19/16 10/19/16 10/20/16 11:46 23:59 06:00 WBC RBC Hgb Hct MCV MCH MCHC RDW Plt Count Lymph % (Auto) [place] % (Auto) Lymph # [place] # Baso # Seg Neutrophils % Seg Neuts % (Manual) Lymphocytes % (Manual) Monocytes % (Manual) Eosinophils % (Manual) Basophils % (Manual) Nucleated RBC % Seg Neutrophils # Seg Neutrophils # Man Lymphocytes # (Manual) Monocytes # (Manual) Eosinophils # (Manual) PT INR Fibrinogen dRVVT Confirm Interp Factor V Activity POC ABG pH POC ABG pCO2 POC ABG pO2 ABG pO2 ABG HCO3 ABG Hemoglobin Oxyhemoglobin Sodium Potassium Chloride Carbon Dioxide 17 L BUN 94 H Creatinine 2.7 H Glucose POC Glucose 116 H 117 H Lactic Acid Calcium Phosphorus Magnesium Direct Bilirubin AST ALT Alkaline Phosphatase Lactate Dehydrogenase Troponin T C-Reactive Protein Total Protein Albumin Prealbumin Triglycerides Cholesterol LDL Cholesterol Direct HDL Cholesterol Urine pH Urine WBC (Auto) Urine Creatinine Urine Total Protein Fluid Total Protein Vancomycin Trough Rheumatoid Factor Complement C4 Miscellaneous Test Crossmatch 10/20/16 10/20/16 10/20/16 06:00 11:49 16:00 WBC 19.7 H RBC 2.51 L Hgb 7.7 L Hct 23.5 L MCV MCH MCHC RDW 17.5 H Plt Count Lymph % (Auto) [place] % (Auto) Lymph # [place] # Baso # Seg Neutrophils % Seg Neuts % (Manual) Lymphocytes % (Manual) Monocytes % (Manual) Eosinophils % (Manual) Basophils % (Manual) Nucleated RBC % Seg Neutrophils # Seg Neutrophils # Man Lymphocytes # (Manual) Monocytes # (Manual) Eosinophils # (Manual) PT INR Fibrinogen dRVVT Confirm Interp Factor V Activity POC ABG pH POC ABG pCO2 POC ABG pO2 ABG pO2 ABG HCO3 ABG Hemoglobin Oxyhemoglobin Sodium Potassium Chloride Carbon Dioxide BUN Creatinine Glucose POC Glucose 117 H Lactic Acid Calcium Phosphorus Magnesium Direct Bilirubin AST ALT Alkaline Phosphatase Lactate Dehydrogenase Troponin T C-Reactive Protein Total Protein Albumin Prealbumin Triglycerides Cholesterol LDL Cholesterol Direct HDL Cholesterol Urine pH Urine WBC (Auto) Urine Creatinine Urine Total Protein Fluid Total Protein Vancomycin Trough Rheumatoid Factor Complement C4 Miscellaneous Test Flexitest 1 H Crossmatch 10/20/16 10/20/16 10/21/16 18:36 23:39 04:00 WBC RBC Hgb Hct MCV MCH MCHC RDW Plt Count Lymph % (Auto) [place] % (Auto) Lymph # [place] # Baso # Seg Neutrophils % Seg Neuts % (Manual) Lymphocytes % (Manual) Monocytes % (Manual) Eosinophils % (Manual) Basophils % (Manual) Nucleated RBC % Seg Neutrophils # Seg Neutrophils # Man Lymphocytes # (Manual) Monocytes # (Manual) Eosinophils # (Manual) PT INR Fibrinogen dRVVT Confirm Interp Factor V Activity POC ABG pH POC ABG pCO2 POC ABG pO2 ABG pO2 ABG HCO3 ABG Hemoglobin Oxyhemoglobin Sodium Potassium 5.4 H D Chloride Carbon Dioxide 15 L BUN 110 H Creatinine 3.0 H Glucose POC Glucose 127 H 114 H Lactic Acid Calcium Phosphorus Magnesium Direct Bilirubin AST ALT Alkaline Phosphatase Lactate Dehydrogenase Troponin T C-Reactive Protein Total Protein Albumin Prealbumin Triglycerides Cholesterol LDL Cholesterol Direct HDL Cholesterol Urine pH Urine WBC (Auto) Urine Creatinine Urine Total Protein Fluid Total Protein Vancomycin Trough Rheumatoid Factor Complement C4 Miscellaneous Test Crossmatch 10/21/16 10/21/16 10/22/16 05:54 23:46 05:18 WBC RBC Hgb Hct MCV MCH MCHC RDW Plt Count Lymph % (Auto) [place] % (Auto) Lymph # [place] # Baso # Seg Neutrophils % Seg Neuts % (Manual) Lymphocytes % (Manual) Monocytes % (Manual) Eosinophils % (Manual) Basophils % (Manual) Nucleated RBC % Seg Neutrophils # Seg Neutrophils # Man Lymphocytes # (Manual) Monocytes # (Manual) Eosinophils # (Manual) PT INR Fibrinogen dRVVT Confirm Interp Factor V Activity POC ABG pH POC ABG pCO2 POC ABG pO2 ABG pO2 ABG HCO3 ABG Hemoglobin Oxyhemoglobin Sodium Potassium Chloride Carbon Dioxide BUN Creatinine Glucose POC Glucose 119 H 108 H 109 H Lactic Acid Calcium Phosphorus Magnesium Direct Bilirubin AST ALT Alkaline Phosphatase Lactate Dehydrogenase Troponin T C-Reactive Protein Total Protein Albumin Prealbumin Triglycerides Cholesterol LDL Cholesterol Direct HDL Cholesterol Urine pH Urine WBC (Auto) Urine Creatinine Urine Total Protein Fluid Total Protein Vancomycin Trough Rheumatoid Factor Complement C4 Miscellaneous Test Crossmatch 10/22/16 10/22/16 10/22/16 06:40 06:40 06:40 WBC 14.0 H RBC 2.03 L Hgb 7.0 L Hct 20.5 L MCV 98 H MCH 34 H MCHC 35 H RDW 17.8 H Plt Count Lymph % (Auto) [place] % (Auto) 9.9 H Lymph # [place] # 1.4 H Baso # 0.2 H Seg Neutrophils % 72.0 H Seg Neuts % (Manual) Lymphocytes % (Manual) Monocytes % (Manual) Eosinophils % (Manual) Basophils % (Manual) Nucleated RBC % Seg Neutrophils # 10.0 H Seg Neutrophils # Man Lymphocytes # (Manual) Monocytes # (Manual) Eosinophils # (Manual) PT INR Fibrinogen dRVVT Confirm Interp Factor V Activity POC ABG pH POC ABG pCO2 POC ABG pO2 ABG pO2 ABG HCO3 ABG Hemoglobin Oxyhemoglobin Sodium 130 L D Potassium Chloride 92.4 L Carbon Dioxide 20 L BUN 50 H Creatinine 1.6 H Glucose 589 H* POC Glucose Lactic Acid Calcium 7.8 L D Phosphorus Magnesium 1.60 L Direct Bilirubin AST ALT Alkaline Phosphatase Lactate Dehydrogenase Troponin T C-Reactive Protein Total Protein Albumin Prealbumin Triglycerides Cholesterol LDL Cholesterol Direct HDL Cholesterol Urine pH Urine WBC (Auto) Urine Creatinine Urine Total Protein Fluid Total Protein Vancomycin Trough Rheumatoid Factor Complement C4 Miscellaneous Test Crossmatch 10/22/16 10/22/16 10/22/16 11:39 16:44 23:36 WBC RBC Hgb Hct MCV MCH MCHC RDW Plt Count Lymph % (Auto) [place] % (Auto) Lymph # [place] # Baso # Seg Neutrophils % Seg Neuts % (Manual) Lymphocytes % (Manual) Monocytes % (Manual) Eosinophils % (Manual) Basophils % (Manual) Nucleated RBC % Seg Neutrophils # Seg Neutrophils # Man Lymphocytes # (Manual) Monocytes # (Manual) Eosinophils # (Manual) PT INR Fibrinogen dRVVT Confirm Interp Factor V Activity POC ABG pH POC ABG pCO2 POC ABG pO2 ABG pO2 ABG HCO3 ABG Hemoglobin Oxyhemoglobin Sodium Potassium Chloride Carbon Dioxide BUN Creatinine Glucose POC Glucose 142 H 163 H 123 H Lactic Acid Calcium Phosphorus Magnesium Direct Bilirubin AST ALT Alkaline Phosphatase Lactate Dehydrogenase Troponin T C-Reactive Protein Total Protein Albumin Prealbumin Triglycerides Cholesterol LDL Cholesterol Direct HDL Cholesterol Urine pH Urine WBC (Auto) Urine Creatinine Urine Total Protein Fluid Total Protein Vancomycin Trough Rheumatoid Factor Complement C4 Miscellaneous Test Crossmatch 10/23/16 10/23/16 10/23/16 04:58 06:00 12:12 WBC RBC Hgb Hct MCV MCH MCHC RDW Plt Count Lymph % (Auto) [place] % (Auto) Lymph # [place] # Baso # Seg Neutrophils % Seg Neuts % (Manual) Lymphocytes % (Manual) Monocytes % (Manual) Eosinophils % (Manual) Basophils % (Manual) Nucleated RBC % Seg Neutrophils # Seg Neutrophils # Man Lymphocytes # (Manual) Monocytes # (Manual) Eosinophils # (Manual) PT INR Fibrinogen dRVVT Confirm Interp Factor V Activity POC ABG pH POC ABG pCO2 POC ABG pO2 ABG pO2 ABG HCO3 ABG Hemoglobin Oxyhemoglobin Sodium 133 L Potassium 3.5 L Chloride 96.1 L Carbon Dioxide 18 L BUN 76 H Creatinine 2.1 H Glucose POC Glucose 133 H 138 H Lactic Acid Calcium 8.3 L Phosphorus Magnesium Direct Bilirubin AST ALT Alkaline Phosphatase Lactate Dehydrogenase Troponin T C-Reactive Protein Total Protein Albumin Prealbumin Triglycerides Cholesterol LDL Cholesterol Direct HDL Cholesterol Urine pH Urine WBC (Auto) Urine Creatinine Urine Total Protein Fluid Total Protein Vancomycin Trough Rheumatoid Factor Complement C4 Miscellaneous Test Crossmatch 10/23/16 10/23/16 10/24/16 16:53 23:37 04:00 WBC RBC Hgb Hct MCV MCH MCHC RDW Plt Count Lymph % (Auto) [place] % (Auto) Lymph # [place] # Baso # Seg Neutrophils % Seg Neuts % (Manual) Lymphocytes % (Manual) Monocytes % (Manual) Eosinophils % (Manual) Basophils % (Manual) Nucleated RBC % Seg Neutrophils # Seg Neutrophils # Man Lymphocytes # (Manual) Monocytes # (Manual) Eosinophils # (Manual) PT INR Fibrinogen dRVVT Confirm Interp Factor V Activity POC ABG pH POC ABG pCO2 POC ABG pO2 ABG pO2 ABG HCO3 ABG Hemoglobin Oxyhemoglobin Sodium 131 L Potassium Chloride 94.5 L Carbon Dioxide 19 L BUN 97 H Creatinine 2.6 H Glucose 110 H POC Glucose 125 H 123 H Lactic Acid Calcium 8.3 L Phosphorus Magnesium Direct Bilirubin AST ALT Alkaline Phosphatase Lactate Dehydrogenase Troponin T C-Reactive Protein Total Protein Albumin Prealbumin Triglycerides Cholesterol LDL Cholesterol Direct HDL Cholesterol Urine pH Urine WBC (Auto) Urine Creatinine Urine Total Protein Fluid Total Protein Vancomycin Trough Rheumatoid Factor Complement C4 Miscellaneous Test Crossmatch 10/24/16 10/24/16 10/24/16 07:49 11:39 17:52 WBC RBC Hgb 6.0 L Hct 19.7 L* MCV MCH MCHC RDW Plt Count Lymph % (Auto) [place] % (Auto) Lymph # [place] # Baso # Seg Neutrophils % Seg Neuts % (Manual) Lymphocytes % (Manual) Monocytes % (Manual) Eosinophils % (Manual) Basophils % (Manual) Nucleated RBC % Seg Neutrophils # Seg Neutrophils # Man Lymphocytes # (Manual) Monocytes # (Manual) Eosinophils # (Manual) PT INR Fibrinogen dRVVT Confirm Interp Factor V Activity POC ABG pH POC ABG pCO2 POC ABG pO2 ABG pO2 ABG HCO3 ABG Hemoglobin Oxyhemoglobin Sodium Potassium Chloride Carbon Dioxide BUN Creatinine Glucose POC Glucose 106 H 158 H Lactic Acid Calcium Phosphorus Magnesium Direct Bilirubin AST ALT Alkaline Phosphatase Lactate Dehydrogenase Troponin T C-Reactive Protein Total Protein Albumin Prealbumin Triglycerides Cholesterol LDL Cholesterol Direct HDL Cholesterol Urine pH Urine WBC (Auto) Urine Creatinine Urine Total Protein Fluid Total Protein Vancomycin Trough Rheumatoid Factor Complement C4 Miscellaneous Test Crossmatch 10/24/16 10/24/16 10/24/16 20:00 22:27 Unknown WBC RBC Hgb 9.4 L D Hct 27.5 L D MCV MCH MCHC RDW Plt Count Lymph % (Auto) [place] % (Auto) Lymph # [place] # Baso # Seg Neutrophils % Seg Neuts % (Manual) Lymphocytes % (Manual) Monocytes % (Manual) Eosinophils % (Manual) Basophils % (Manual) Nucleated RBC % Seg Neutrophils # Seg Neutrophils # Man Lymphocytes # (Manual) Monocytes # (Manual) Eosinophils # (Manual) PT INR Fibrinogen dRVVT Confirm Interp Factor V Activity POC ABG pH POC ABG pCO2 POC ABG pO2 ABG pO2 ABG HCO3 ABG Hemoglobin Oxyhemoglobin Sodium Potassium Chloride Carbon Dioxide BUN Creatinine Glucose POC Glucose 125 H Lactic Acid Calcium Phosphorus Magnesium Direct Bilirubin AST ALT Alkaline Phosphatase Lactate Dehydrogenase Troponin T C-Reactive Protein Total Protein Albumin Prealbumin Triglycerides Cholesterol LDL Cholesterol Direct HDL Cholesterol Urine pH Urine WBC (Auto) Urine Creatinine Urine Total Protein Fluid Total Protein Vancomycin Trough Rheumatoid Factor Complement C4 Miscellaneous Test Crossmatch See Detail 10/25/16 10/25/16 10/25/16 04:00 04:00 04:00 WBC 14.2 H RBC 2.98 L Hgb 9.0 L Hct 26.2 L MCV MCH MCHC RDW 16.6 H Plt Count Lymph % (Auto) [place] % (Auto) 10.7 H Lymph # [place] # 1.5 H Baso # Seg Neutrophils % 73.6 H Seg Neuts % (Manual) Lymphocytes % (Manual) Monocytes % (Manual) Eosinophils % (Manual) Basophils % (Manual) Nucleated RBC % Seg Neutrophils # 10.5 H Seg Neutrophils # Man Lymphocytes # (Manual) Monocytes # (Manual) Eosinophils # (Manual) PT INR Fibrinogen dRVVT Confirm Interp Factor V Activity POC ABG pH POC ABG pCO2 POC ABG pO2 ABG pO2 ABG HCO3 ABG Hemoglobin Oxyhemoglobin Sodium 132 L Potassium Chloride 94.7 L Carbon Dioxide BUN 51 H Creatinine 1.6 H Glucose 130 H POC Glucose Lactic Acid Calcium 8.3 L Phosphorus 1.60 L D Magnesium Direct Bilirubin AST ALT Alkaline Phosphatase Lactate Dehydrogenase Troponin T C-Reactive Protein Total Protein Albumin Prealbumin Triglycerides Cholesterol LDL Cholesterol Direct HDL Cholesterol Urine pH Urine WBC (Auto) Urine Creatinine Urine Total Protein Fluid Total Protein Vancomycin Trough Rheumatoid Factor Complement C4 Miscellaneous Test Crossmatch 10/25/16 10/25/16 10/25/16 04:32 11:48 17:22 WBC RBC Hgb Hct MCV MCH MCHC RDW Plt Count Lymph % (Auto) [place] % (Auto) Lymph # [place] # Baso # Seg Neutrophils % Seg Neuts % (Manual) Lymphocytes % (Manual) Monocytes % (Manual) Eosinophils % (Manual) Basophils % (Manual) Nucleated RBC % Seg Neutrophils # Seg Neutrophils # Man Lymphocytes # (Manual) Monocytes # (Manual) Eosinophils # (Manual) PT INR Fibrinogen dRVVT Confirm Interp Factor V Activity POC ABG pH POC ABG pCO2 POC ABG pO2 ABG pO2 ABG HCO3 ABG Hemoglobin Oxyhemoglobin Sodium Potassium Chloride Carbon Dioxide BUN Creatinine Glucose POC Glucose 124 H 171 H 120 H Lactic Acid Calcium Phosphorus Magnesium Direct Bilirubin AST ALT Alkaline Phosphatase Lactate Dehydrogenase Troponin T C-Reactive Protein Total Protein Albumin Prealbumin Triglycerides Cholesterol LDL Cholesterol Direct HDL Cholesterol Urine pH Urine WBC (Auto) Urine Creatinine Urine Total Protein Fluid Total Protein Vancomycin Trough Rheumatoid Factor Complement C4 Miscellaneous Test Crossmatch 10/26/16 10/26/16 10/26/16 04:54 07:06 07:06 WBC 16.9 H RBC 3.06 L Hgb 9.1 L Hct 26.9 L MCV MCH MCHC RDW 16.9 H Plt Count Lymph % (Auto) [place] % (Auto) Lymph # [place] # Baso # Seg Neutrophils % Seg Neuts % (Manual) 71.0 H Lymphocytes % (Manual) 5.0 L Monocytes % (Manual) 12.0 H Eosinophils % (Manual) Basophils % (Manual) Nucleated RBC % Seg Neutrophils # Seg Neutrophils # Man 12.0 H Lymphocytes # (Manual) 0.8 L Monocytes # (Manual) 2.0 H Eosinophils # (Manual) PT INR Fibrinogen dRVVT Confirm Interp Factor V Activity POC ABG pH POC ABG pCO2 POC ABG pO2 ABG pO2 ABG HCO3 ABG Hemoglobin Oxyhemoglobin Sodium 135 L Potassium Chloride 97.1 L Carbon Dioxide BUN 73 H Creatinine 2.2 H Glucose 117 H POC Glucose 123 H Lactic Acid Calcium Phosphorus 1.70 L Magnesium Direct Bilirubin AST ALT Alkaline Phosphatase Lactate Dehydrogenase Troponin T C-Reactive Protein Total Protein Albumin Prealbumin Triglycerides Cholesterol LDL Cholesterol Direct HDL Cholesterol Urine pH Urine WBC (Auto) Urine Creatinine Urine Total Protein Fluid Total Protein Vancomycin Trough Rheumatoid Factor Complement C4 Miscellaneous Test Crossmatch 10/26/16 10/26/16 10/26/16 12:12 17:29 23:42 WBC RBC Hgb Hct MCV MCH MCHC RDW Plt Count Lymph % (Auto) [place] % (Auto) Lymph # [place] # Baso # Seg Neutrophils % Seg Neuts % (Manual) Lymphocytes % (Manual) Monocytes % (Manual) Eosinophils % (Manual) Basophils % (Manual) Nucleated RBC % Seg Neutrophils # Seg Neutrophils # Man Lymphocytes # (Manual) Monocytes # (Manual) Eosinophils # (Manual) PT INR Fibrinogen dRVVT Confirm Interp Factor V Activity POC ABG pH POC ABG pCO2 POC ABG pO2 ABG pO2 ABG HCO3 ABG Hemoglobin Oxyhemoglobin Sodium Potassium Chloride Carbon Dioxide BUN Creatinine Glucose POC Glucose 126 H 161 H 118 H Lactic Acid Calcium Phosphorus Magnesium Direct Bilirubin AST ALT Alkaline Phosphatase Lactate Dehydrogenase Troponin T C-Reactive Protein Total Protein Albumin Prealbumin Triglycerides Cholesterol LDL Cholesterol Direct HDL Cholesterol Urine pH Urine WBC (Auto) Urine Creatinine Urine Total Protein Fluid Total Protein Vancomycin Trough Rheumatoid Factor Complement C4 Miscellaneous Test Crossmatch 10/27/16 10/27/16 10/27/16 05:03 06:30 06:30 WBC 13.9 H RBC 3.09 L Hgb 9.2 L Hct 27.5 L MCV MCH MCHC RDW 17.0 H Plt Count Lymph % (Auto) [place] % (Auto) Lymph # [place] # Baso # Seg Neutrophils % Seg Neuts % (Manual) 78.0 H Lymphocytes % (Manual) Monocytes % (Manual) Eosinophils % (Manual) Basophils % (Manual) Nucleated RBC % 2.0 H Seg Neutrophils # Seg Neutrophils # Man 10.8 H Lymphocytes # (Manual) Monocytes # (Manual) 1.0 H Eosinophils # (Manual) PT INR Fibrinogen dRVVT Confirm Interp Factor V Activity POC ABG pH POC ABG pCO2 POC ABG pO2 ABG pO2 ABG HCO3 ABG Hemoglobin Oxyhemoglobin Sodium Potassium Chloride Carbon Dioxide BUN 40 H Creatinine 1.5 H Glucose 135 H POC Glucose 107 H Lactic Acid Calcium 8.3 L Phosphorus 1.30 L D Magnesium Direct Bilirubin AST ALT Alkaline Phosphatase Lactate Dehydrogenase Troponin T C-Reactive Protein Total Protein Albumin Prealbumin Triglycerides Cholesterol LDL Cholesterol Direct HDL Cholesterol Urine pH Urine WBC (Auto) Urine Creatinine Urine Total Protein Fluid Total Protein Vancomycin Trough Rheumatoid Factor Complement C4 Miscellaneous Test Crossmatch 10/27/16 10/27/16 10/27/16 13:27 18:07 23:40 WBC RBC Hgb Hct MCV MCH MCHC RDW Plt Count Lymph % (Auto) [place] % (Auto) Lymph # [place] # Baso # Seg Neutrophils % Seg Neuts % (Manual) Lymphocytes % (Manual) Monocytes % (Manual) Eosinophils % (Manual) Basophils % (Manual) Nucleated RBC % Seg Neutrophils # Seg Neutrophils # Man Lymphocytes # (Manual) Monocytes # (Manual) Eosinophils # (Manual) PT INR Fibrinogen dRVVT Confirm Interp Factor V Activity POC ABG pH POC ABG pCO2 POC ABG pO2 ABG pO2 ABG HCO3 ABG Hemoglobin Oxyhemoglobin Sodium Potassium Chloride Carbon Dioxide BUN Creatinine Glucose POC Glucose 117 H 121 H 118 H Lactic Acid Calcium Phosphorus Magnesium Direct Bilirubin AST ALT Alkaline Phosphatase Lactate Dehydrogenase Troponin T C-Reactive Protein Total Protein Albumin Prealbumin Triglycerides Cholesterol LDL Cholesterol Direct HDL Cholesterol Urine pH Urine WBC (Auto) Urine Creatinine Urine Total Protein Fluid Total Protein Vancomycin Trough Rheumatoid Factor Complement C4 Miscellaneous Test Crossmatch 10/28/16 10/28/16 10/28/16 05:48 06:45 06:45 WBC 14.7 H RBC 3.05 L Hgb 9.0 L Hct 26.9 L MCV MCH MCHC RDW 16.8 H Plt Count Lymph % (Auto) 8.2 L [place] % (Auto) 8.4 H Lymph # [place] # 1.2 H Baso # Seg Neutrophils % 81.9 H Seg Neuts % (Manual) Lymphocytes % (Manual) Monocytes % (Manual) Eosinophils % (Manual) Basophils % (Manual) Nucleated RBC % Seg Neutrophils # 12.1 H Seg Neutrophils # Man Lymphocytes # (Manual) Monocytes # (Manual) Eosinophils # (Manual) PT INR Fibrinogen dRVVT Confirm Interp Factor V Activity POC ABG pH POC ABG pCO2 POC ABG pO2 ABG pO2 ABG HCO3 ABG Hemoglobin Oxyhemoglobin Sodium Potassium Chloride Carbon Dioxide BUN 60 H Creatinine 1.9 H Glucose 120 H POC Glucose 114 H Lactic Acid Calcium Phosphorus Magnesium Direct Bilirubin AST ALT Alkaline Phosphatase Lactate Dehydrogenase Troponin T C-Reactive Protein Total Protein Albumin Prealbumin Triglycerides Cholesterol LDL Cholesterol Direct HDL Cholesterol Urine pH Urine WBC (Auto) Urine Creatinine Urine Total Protein Fluid Total Protein Vancomycin Trough Rheumatoid Factor Complement C4 Miscellaneous Test Crossmatch 10/28/16 10/28/16 10/29/16 17:08 23:50 05:10 WBC RBC Hgb Hct MCV MCH MCHC RDW Plt Count Lymph % (Auto) [place] % (Auto) Lymph # [place] # Baso # Seg Neutrophils % Seg Neuts % (Manual) Lymphocytes % (Manual) Monocytes % (Manual) Eosinophils % (Manual) Basophils % (Manual) Nucleated RBC % Seg Neutrophils # Seg Neutrophils # Man Lymphocytes # (Manual) Monocytes # (Manual) Eosinophils # (Manual) PT INR Fibrinogen dRVVT Confirm Interp Factor V Activity POC ABG pH POC ABG pCO2 POC ABG pO2 ABG pO2 ABG HCO3 ABG Hemoglobin Oxyhemoglobin Sodium Potassium Chloride Carbon Dioxide BUN Creatinine Glucose POC Glucose 109 H 110 H 124 H Lactic Acid Calcium Phosphorus Magnesium Direct Bilirubin AST ALT Alkaline Phosphatase Lactate Dehydrogenase Troponin T C-Reactive Protein Total Protein Albumin Prealbumin Triglycerides Cholesterol LDL Cholesterol Direct HDL Cholesterol Urine pH Urine WBC (Auto) Urine Creatinine Urine Total Protein Fluid Total Protein Vancomycin Trough Rheumatoid Factor Complement C4 Miscellaneous Test Crossmatch 10/29/16 10/29/16 10/29/16 07:45 07:45 12:19 WBC 14.7 H RBC 3.15 L Hgb 9.3 L Hct 28.9 L MCV MCH MCHC RDW 17.0 H Plt Count Lymph % (Auto) 11.9 L [place] % (Auto) 8.6 H Lymph # [place] # 1.3 H Baso # Seg Neutrophils % 78.1 H Seg Neuts % (Manual) Lymphocytes % (Manual) Monocytes % (Manual) Eosinophils % (Manual) Basophils % (Manual) Nucleated RBC % Seg Neutrophils # 11.4 H Seg Neutrophils # Man Lymphocytes # (Manual) Monocytes # (Manual) Eosinophils # (Manual) PT INR Fibrinogen dRVVT Confirm Interp Factor V Activity POC ABG pH POC ABG pCO2 POC ABG pO2 ABG pO2 ABG HCO3 ABG Hemoglobin Oxyhemoglobin Sodium Potassium 5.1 H Chloride Carbon Dioxide 19 L BUN 78 H Creatinine 2.2 H Glucose 116 H POC Glucose 118 H Lactic Acid Calcium Phosphorus Magnesium Direct Bilirubin AST ALT Alkaline Phosphatase Lactate Dehydrogenase Troponin T C-Reactive Protein Total Protein Albumin Prealbumin Triglycerides Cholesterol LDL Cholesterol Direct HDL Cholesterol Urine pH Urine WBC (Auto) Urine Creatinine Urine Total Protein Fluid Total Protein Vancomycin Trough Rheumatoid Factor Complement C4 Miscellaneous Test Crossmatch 10/29/16 10/30/16 10/30/16 17:49 01:52 03:28 WBC RBC Hgb Hct MCV MCH MCHC RDW Plt Count Lymph % (Auto) [place] % (Auto) Lymph # [place] # Baso # Seg Neutrophils % Seg Neuts % (Manual) Lymphocytes % (Manual) Monocytes % (Manual) Eosinophils % (Manual) Basophils % (Manual) Nucleated RBC % Seg Neutrophils # Seg Neutrophils # Man Lymphocytes # (Manual) Monocytes # (Manual) Eosinophils # (Manual) PT INR Fibrinogen dRVVT Confirm Interp Factor V Activity POC ABG pH POC ABG pCO2 POC ABG pO2 ABG pO2 ABG HCO3 ABG Hemoglobin Oxyhemoglobin Sodium Potassium 5.4 H Chloride 97.5 L Carbon Dioxide 19 L BUN 90 H Creatinine 2.5 H Glucose POC Glucose 120 H 129 H Lactic Acid Calcium Phosphorus 5.20 H Magnesium Direct Bilirubin AST ALT Alkaline Phosphatase Lactate Dehydrogenase Troponin T C-Reactive Protein Total Protein Albumin Prealbumin Triglycerides Cholesterol LDL Cholesterol Direct HDL Cholesterol Urine pH Urine WBC (Auto) Urine Creatinine Urine Total Protein Fluid Total Protein Vancomycin Trough Rheumatoid Factor Complement C4 Miscellaneous Test Crossmatch 10/30/16 10/30/16 10/30/16 03:28 08:19 08:19 WBC 11.6 H 15.9 H RBC 2.75 L 2.82 L Hgb 7.9 L 8.3 L Hct 24.2 L 25.2 L MCV MCH MCHC RDW 16.7 H 17.2 H Plt Count Lymph % (Auto) [place] % (Auto) 9.8 H Lymph # [place] # 1.1 H Baso # Seg Neutrophils % 74.2 H Seg Neuts % (Manual) Lymphocytes % (Manual) Monocytes % (Manual) Eosinophils % (Manual) Basophils % (Manual) Nucleated RBC % Seg Neutrophils # 8.6 H Seg Neutrophils # Man Lymphocytes # (Manual) Monocytes # (Manual) Eosinophils # (Manual) PT INR Fibrinogen dRVVT Confirm Interp Factor V Activity POC ABG pH POC ABG pCO2 POC ABG pO2 ABG pO2 ABG HCO3 ABG Hemoglobin Oxyhemoglobin Sodium Potassium 5.3 H Chloride 97.4 L Carbon Dioxide 19 L BUN 93 H Creatinine 2.6 H Glucose POC Glucose Lactic Acid Calcium Phosphorus Magnesium Direct Bilirubin AST ALT Alkaline Phosphatase Lactate Dehydrogenase Troponin T C-Reactive Protein Total Protein Albumin Prealbumin Triglycerides Cholesterol LDL Cholesterol Direct HDL Cholesterol Urine pH Urine WBC (Auto) Urine Creatinine Urine Total Protein Fluid Total Protein Vancomycin Trough Rheumatoid Factor Complement C4 Miscellaneous Test Crossmatch 10/30/16 10/30/16 10/31/16 17:11 23:56 00:40 WBC RBC Hgb Hct MCV MCH MCHC RDW Plt Count Lymph % (Auto) [place] % (Auto) Lymph # [place] # Baso # Seg Neutrophils % Seg Neuts % (Manual) Lymphocytes % (Manual) Monocytes % (Manual) Eosinophils % (Manual) Basophils % (Manual) Nucleated RBC % Seg Neutrophils # Seg Neutrophils # Man Lymphocytes # (Manual) Monocytes # (Manual) Eosinophils # (Manual) PT INR Fibrinogen dRVVT Confirm Interp Factor V Activity POC ABG pH POC ABG pCO2 POC ABG pO2 ABG pO2 ABG HCO3 ABG Hemoglobin Oxyhemoglobin Sodium Potassium Chloride Carbon Dioxide BUN Creatinine Glucose POC Glucose 106 H 117 H 120 H Lactic Acid Calcium Phosphorus Magnesium Direct Bilirubin AST ALT Alkaline Phosphatase Lactate Dehydrogenase Troponin T C-Reactive Protein Total Protein Albumin Prealbumin Triglycerides Cholesterol LDL Cholesterol Direct HDL Cholesterol Urine pH Urine WBC (Auto) Urine Creatinine Urine Total Protein Fluid Total Protein Vancomycin Trough Rheumatoid Factor Complement C4 Miscellaneous Test Crossmatch 10/31/16 10/31/16 10/31/16 05:43 07:15 07:15 WBC 12.1 H RBC 2.63 L Hgb 7.7 L Hct 23.3 L MCV MCH MCHC RDW 16.7 H Plt Count Lymph % (Auto) 11.7 L [place] % (Auto) 7.7 H Lymph # [place] # 0.9 H Baso # Seg Neutrophils % 78.0 H Seg Neuts % (Manual) Lymphocytes % (Manual) Monocytes % (Manual) Eosinophils % (Manual) Basophils % (Manual) Nucleated RBC % Seg Neutrophils # 9.4 H Seg Neutrophils # Man Lymphocytes # (Manual) Monocytes # (Manual) Eosinophils # (Manual) PT INR Fibrinogen dRVVT Confirm Interp Factor V Activity POC ABG pH POC ABG pCO2 POC ABG pO2 ABG pO2 ABG HCO3 ABG Hemoglobin Oxyhemoglobin Sodium Potassium Chloride 96.4 L Carbon Dioxide 21 L BUN 99 H Creatinine 2.6 H Glucose 144 H POC Glucose 125 H Lactic Acid Calcium Phosphorus 4.80 H Magnesium Direct Bilirubin AST ALT Alkaline Phosphatase Lactate Dehydrogenase Troponin T C-Reactive Protein Total Protein Albumin Prealbumin Triglycerides Cholesterol LDL Cholesterol Direct HDL Cholesterol Urine pH Urine WBC (Auto) Urine Creatinine Urine Total Protein Fluid Total Protein Vancomycin Trough Rheumatoid Factor Complement C4 Miscellaneous Test Crossmatch 10/31/16 10/31/16 11/01/16 11:46 18:34 00:20 WBC RBC Hgb Hct MCV MCH MCHC RDW Plt Count Lymph % (Auto) [place] % (Auto) Lymph # [place] # Baso # Seg Neutrophils % Seg Neuts % (Manual) Lymphocytes % (Manual) Monocytes % (Manual) Eosinophils % (Manual) Basophils % (Manual) Nucleated RBC % Seg Neutrophils # Seg Neutrophils # Man Lymphocytes # (Manual) Monocytes # (Manual) Eosinophils # (Manual) PT INR Fibrinogen dRVVT Confirm Interp Factor V Activity POC ABG pH POC ABG pCO2 POC ABG pO2 ABG pO2 ABG HCO3 ABG Hemoglobin Oxyhemoglobin Sodium Potassium Chloride Carbon Dioxide BUN Creatinine Glucose POC Glucose 159 H 140 H 132 H Lactic Acid Calcium Phosphorus Magnesium Direct Bilirubin AST ALT Alkaline Phosphatase Lactate Dehydrogenase Troponin T C-Reactive Protein Total Protein Albumin Prealbumin Triglycerides Cholesterol LDL Cholesterol Direct HDL Cholesterol Urine pH Urine WBC (Auto) Urine Creatinine Urine Total Protein Fluid Total Protein Vancomycin Trough Rheumatoid Factor Complement C4 Miscellaneous Test Crossmatch 11/01/16 11/01/16 11/01/16 04:55 04:55 06:11 WBC 11.2 H RBC 2.68 L Hgb 7.5 L Hct 23.7 L MCV MCH MCHC RDW 16.1 H Plt Count Lymph % (Auto) [place] % (Auto) 9.8 H Lymph # [place] # 1.1 H Baso # Seg Neutrophils % 70.8 H Seg Neuts % (Manual) Lymphocytes % (Manual) Monocytes % (Manual) Eosinophils % (Manual) Basophils % (Manual) Nucleated RBC % Seg Neutrophils # 7.9 H Seg Neutrophils # Man Lymphocytes # (Manual) Monocytes # (Manual) Eosinophils # (Manual) PT INR Fibrinogen dRVVT Confirm Interp Factor V Activity POC ABG pH POC ABG pCO2 POC ABG pO2 ABG pO2 ABG HCO3 ABG Hemoglobin Oxyhemoglobin Sodium Potassium 3.3 L D Chloride Carbon Dioxide BUN 61 H Creatinine 1.9 H Glucose 114 H POC Glucose 115 H Lactic Acid Calcium Phosphorus 1.80 L D Magnesium Direct Bilirubin AST ALT Alkaline Phosphatase Lactate Dehydrogenase Troponin T C-Reactive Protein Total Protein Albumin Prealbumin Triglycerides Cholesterol LDL Cholesterol Direct HDL Cholesterol Urine pH Urine WBC (Auto) Urine Creatinine Urine Total Protein Fluid Total Protein Vancomycin Trough Rheumatoid Factor Complement C4 Miscellaneous Test Crossmatch 11/01/16 11/01/16 11/01/16 12:29 18:23 23:58 WBC RBC Hgb Hct MCV MCH MCHC RDW Plt Count Lymph % (Auto) [place] % (Auto) Lymph # [place] # Baso # Seg Neutrophils % Seg Neuts % (Manual) Lymphocytes % (Manual) Monocytes % (Manual) Eosinophils % (Manual) Basophils % (Manual) Nucleated RBC % Seg Neutrophils # Seg Neutrophils # Man Lymphocytes # (Manual) Monocytes # (Manual) Eosinophils # (Manual) PT INR Fibrinogen dRVVT Confirm Interp Factor V Activity POC ABG pH POC ABG pCO2 POC ABG pO2 ABG pO2 ABG HCO3 ABG Hemoglobin Oxyhemoglobin Sodium Potassium Chloride Carbon Dioxide BUN Creatinine Glucose POC Glucose 142 H 143 H 128 H Lactic Acid Calcium Phosphorus Magnesium Direct Bilirubin AST ALT Alkaline Phosphatase Lactate Dehydrogenase Troponin T C-Reactive Protein Total Protein Albumin Prealbumin Triglycerides Cholesterol LDL Cholesterol Direct HDL Cholesterol Urine pH Urine WBC (Auto) Urine Creatinine Urine Total Protein Fluid Total Protein Vancomycin Trough Rheumatoid Factor Complement C4 Miscellaneous Test Crossmatch 11/02/16 11/02/16 11/02/16 04:16 05:29 11:58 WBC RBC Hgb Hct MCV MCH MCHC RDW Plt Count Lymph % (Auto) [place] % (Auto) Lymph # [place] # Baso # Seg Neutrophils % Seg Neuts % (Manual) Lymphocytes % (Manual) Monocytes % (Manual) Eosinophils % (Manual) Basophils % (Manual) Nucleated RBC % Seg Neutrophils # Seg Neutrophils # Man Lymphocytes # (Manual) Monocytes # (Manual) Eosinophils # (Manual) PT INR Fibrinogen dRVVT Confirm Interp Factor V Activity POC ABG pH POC ABG pCO2 POC ABG pO2 ABG pO2 ABG HCO3 ABG Hemoglobin Oxyhemoglobin Sodium Potassium 3.1 L Chloride Carbon Dioxide BUN 73 H Creatinine 2.3 H Glucose 112 H POC Glucose 135 H 149 H Lactic Acid Calcium Phosphorus Magnesium Direct Bilirubin AST ALT Alkaline Phosphatase Lactate Dehydrogenase Troponin T C-Reactive Protein Total Protein Albumin Prealbumin Triglycerides Cholesterol LDL Cholesterol Direct HDL Cholesterol Urine pH Urine WBC (Auto) Urine Creatinine Urine Total Protein Fluid Total Protein Vancomycin Trough Rheumatoid Factor Complement C4 Miscellaneous Test Crossmatch 11/02/16 11/02/16 11/03/16 17:42 22:54 06:00 WBC RBC Hgb Hct MCV MCH MCHC RDW Plt Count Lymph % (Auto) [place] % (Auto) Lymph # [place] # Baso # Seg Neutrophils % Seg Neuts % (Manual) Lymphocytes % (Manual) Monocytes % (Manual) Eosinophils % (Manual) Basophils % (Manual) Nucleated RBC % Seg Neutrophils # Seg Neutrophils # Man Lymphocytes # (Manual) Monocytes # (Manual) Eosinophils # (Manual) PT INR Fibrinogen dRVVT Confirm Interp Factor V Activity POC ABG pH POC ABG pCO2 POC ABG pO2 ABG pO2 ABG HCO3 ABG Hemoglobin Oxyhemoglobin Sodium Potassium Chloride 96.7 L Carbon Dioxide BUN 41 H Creatinine 1.5 H Glucose 145 H POC Glucose 182 H 115 H Lactic Acid Calcium Phosphorus 1.60 L D Magnesium 1.50 L Direct Bilirubin AST ALT Alkaline Phosphatase Lactate Dehydrogenase Troponin T C-Reactive Protein Total Protein Albumin Prealbumin Triglycerides Cholesterol LDL Cholesterol Direct HDL Cholesterol Urine pH Urine WBC (Auto) Urine Creatinine Urine Total Protein Fluid Total Protein Vancomycin Trough Rheumatoid Factor Complement C4 Miscellaneous Test Crossmatch 11/03/16 11/03/16 11/03/16 11:53 17:45 23:37 WBC RBC Hgb Hct MCV MCH MCHC RDW Plt Count Lymph % (Auto) [place] % (Auto) Lymph # [place] # Baso # Seg Neutrophils % Seg Neuts % (Manual) Lymphocytes % (Manual) Monocytes % (Manual) Eosinophils % (Manual) Basophils % (Manual) Nucleated RBC % Seg Neutrophils # Seg Neutrophils # Man Lymphocytes # (Manual) Monocytes # (Manual) Eosinophils # (Manual) PT INR Fibrinogen dRVVT Confirm Interp Factor V Activity POC ABG pH POC ABG pCO2 POC ABG pO2 ABG pO2 ABG HCO3 ABG Hemoglobin Oxyhemoglobin Sodium Potassium Chloride Carbon Dioxide BUN Creatinine Glucose POC Glucose 131 H 134 H 113 H Lactic Acid Calcium Phosphorus Magnesium Direct Bilirubin AST ALT Alkaline Phosphatase Lactate Dehydrogenase Troponin T C-Reactive Protein Total Protein Albumin Prealbumin Triglycerides Cholesterol LDL Cholesterol Direct HDL Cholesterol Urine pH Urine WBC (Auto) Urine Creatinine Urine Total Protein Fluid Total Protein Vancomycin Trough Rheumatoid Factor Complement C4 Miscellaneous Test Crossmatch 11/04/16 11/04/16 11/04/16 05:41 06:00 12:10 WBC RBC Hgb Hct MCV MCH MCHC RDW Plt Count Lymph % (Auto) [place] % (Auto) Lymph # [place] # Baso # Seg Neutrophils % Seg Neuts % (Manual) Lymphocytes % (Manual) Monocytes % (Manual) Eosinophils % (Manual) Basophils % (Manual) Nucleated RBC % Seg Neutrophils # Seg Neutrophils # Man Lymphocytes # (Manual) Monocytes # (Manual) Eosinophils # (Manual) PT INR Fibrinogen dRVVT Confirm Interp Factor V Activity POC ABG pH POC ABG pCO2 POC ABG pO2 ABG pO2 ABG HCO3 ABG Hemoglobin Oxyhemoglobin Sodium Potassium Chloride 96.7 L Carbon Dioxide BUN 52 H Creatinine 1.9 H Glucose 126 H POC Glucose 137 H 191 H Lactic Acid Calcium Phosphorus Magnesium Direct Bilirubin AST ALT Alkaline Phosphatase Lactate Dehydrogenase Troponin T C-Reactive Protein Total Protein Albumin Prealbumin Triglycerides Cholesterol LDL Cholesterol Direct HDL Cholesterol Urine pH Urine WBC (Auto) Urine Creatinine Urine Total Protein Fluid Total Protein Vancomycin Trough Rheumatoid Factor Complement C4 Miscellaneous Test Crossmatch 11/04/16 11/05/16 11/05/16 22:57 03:10 05:10 WBC RBC Hgb Hct MCV MCH MCHC RDW Plt Count Lymph % (Auto) [place] % (Auto) Lymph # [place] # Baso # Seg Neutrophils % Seg Neuts % (Manual) Lymphocytes % (Manual) Monocytes % (Manual) Eosinophils % (Manual) Basophils % (Manual) Nucleated RBC % Seg Neutrophils # Seg Neutrophils # Man Lymphocytes # (Manual) Monocytes # (Manual) Eosinophils # (Manual) PT INR Fibrinogen dRVVT Confirm Interp Factor V Activity POC ABG pH POC ABG pCO2 POC ABG pO2 ABG pO2 ABG HCO3 ABG Hemoglobin Oxyhemoglobin Sodium 136 L Potassium Chloride 97.2 L Carbon Dioxide BUN 32 H Creatinine 1.3 H Glucose 123 H POC Glucose 125 H 108 H Lactic Acid Calcium 7.8 L Phosphorus Magnesium Direct Bilirubin AST ALT Alkaline Phosphatase Lactate Dehydrogenase Troponin T C-Reactive Protein Total Protein Albumin Prealbumin Triglycerides Cholesterol LDL Cholesterol Direct HDL Cholesterol Urine pH Urine WBC (Auto) Urine Creatinine Urine Total Protein Fluid Total Protein Vancomycin Trough Rheumatoid Factor Complement C4 Miscellaneous Test Crossmatch 11/05/16 11/05/16 11/05/16 12:23 13:09 13:25 WBC RBC Hgb Hct MCV MCH MCHC RDW Plt Count Lymph % (Auto) [place] % (Auto) Lymph # [place] # Baso # Seg Neutrophils % Seg Neuts % (Manual) Lymphocytes % (Manual) Monocytes % (Manual) Eosinophils % (Manual) Basophils % (Manual) Nucleated RBC % Seg Neutrophils # Seg Neutrophils # Man Lymphocytes # (Manual) Monocytes # (Manual) Eosinophils # (Manual) PT INR Fibrinogen dRVVT Confirm Interp Factor V Activity POC ABG pH POC ABG pCO2 POC ABG pO2 ABG pO2 ABG HCO3 ABG Hemoglobin Oxyhemoglobin Sodium Potassium Chloride Carbon Dioxide BUN Creatinine Glucose POC Glucose 124 H Lactic Acid Calcium Phosphorus Magnesium Direct Bilirubin AST ALT Alkaline Phosphatase Lactate Dehydrogenase Troponin T C-Reactive Protein 11.40 H Total Protein Albumin Prealbumin Triglycerides Cholesterol LDL Cholesterol Direct HDL Cholesterol Urine pH 9.0 H Urine WBC (Auto) Urine Creatinine Urine Total Protein Fluid Total Protein Vancomycin Trough Rheumatoid Factor Complement C4 Miscellaneous Test Crossmatch 11/05/16 11/05/16 11/05/16 13:25 17:54 23:42 WBC RBC Hgb Hct MCV MCH MCHC RDW Plt Count Lymph % (Auto) [place] % (Auto) Lymph # [place] # Baso # Seg Neutrophils % Seg Neuts % (Manual) Lymphocytes % (Manual) Monocytes % (Manual) Eosinophils % (Manual) Basophils % (Manual) Nucleated RBC % Seg Neutrophils # Seg Neutrophils # Man Lymphocytes # (Manual) Monocytes # (Manual) Eosinophils # (Manual) PT INR Fibrinogen dRVVT Confirm Interp Factor V Activity POC ABG pH POC ABG pCO2 POC ABG pO2 ABG pO2 ABG HCO3 ABG Hemoglobin Oxyhemoglobin Sodium Potassium Chloride Carbon Dioxide BUN Creatinine Glucose POC Glucose 114 H 134 H Lactic Acid Calcium Phosphorus Magnesium Direct Bilirubin AST ALT Alkaline Phosphatase Lactate Dehydrogenase Troponin T C-Reactive Protein Total Protein Albumin Prealbumin Triglycerides Cholesterol LDL Cholesterol Direct HDL Cholesterol Urine pH Urine WBC (Auto) Urine Creatinine Urine Total Protein Fluid Total Protein Vancomycin Trough Rheumatoid Factor Complement C4 Miscellaneous Test Flexitest 1 H Crossmatch 11/06/16 11/06/16 11/06/16 04:56 06:25 06:25 WBC RBC 2.50 L Hgb 7.3 L Hct 22.5 L MCV MCH MCHC RDW 16.9 H Plt Count Lymph % (Auto) [place] % (Auto) 10.5 H Lymph # [place] # 1.1 H Baso # Seg Neutrophils % Seg Neuts % (Manual) Lymphocytes % (Manual) Monocytes % (Manual) Eosinophils % (Manual) Basophils % (Manual) Nucleated RBC % Seg Neutrophils # Seg Neutrophils # Man Lymphocytes # (Manual) Monocytes # (Manual) Eosinophils # (Manual) PT INR Fibrinogen dRVVT Confirm Interp Factor V Activity POC ABG pH POC ABG pCO2 POC ABG pO2 ABG pO2 ABG HCO3 ABG Hemoglobin Oxyhemoglobin Sodium Potassium 5.1 H Chloride 95.9 L Carbon Dioxide BUN 52 H Creatinine 1.8 H Glucose 117 H POC Glucose 120 H Lactic Acid Calcium Phosphorus Magnesium Direct Bilirubin AST 103 H ALT 77 H Alkaline Phosphatase 285 H Lactate Dehydrogenase Troponin T C-Reactive Protein Total Protein 6.2 L Albumin 1.8 L Prealbumin 0.180 L Triglycerides Cholesterol LDL Cholesterol Direct HDL Cholesterol Urine pH Urine WBC (Auto) Urine Creatinine Urine Total Protein Fluid Total Protein Vancomycin Trough Rheumatoid Factor Complement C4 Miscellaneous Test Crossmatch 11/06/16 11/06/16 11/06/16 11:56 17:14 23:52 WBC RBC Hgb Hct MCV MCH MCHC RDW Plt Count Lymph % (Auto) [place] % (Auto) Lymph # [place] # Baso # Seg Neutrophils % Seg Neuts % (Manual) Lymphocytes % (Manual) Monocytes % (Manual) Eosinophils % (Manual) Basophils % (Manual) Nucleated RBC % Seg Neutrophils # Seg Neutrophils # Man Lymphocytes # (Manual) Monocytes # (Manual) Eosinophils # (Manual) PT INR Fibrinogen dRVVT Confirm Interp Factor V Activity POC ABG pH POC ABG pCO2 POC ABG pO2 ABG pO2 ABG HCO3 ABG Hemoglobin Oxyhemoglobin Sodium Potassium Chloride Carbon Dioxide BUN Creatinine Glucose POC Glucose 141 H 125 H 130 H Lactic Acid Calcium Phosphorus Magnesium Direct Bilirubin AST ALT Alkaline Phosphatase Lactate Dehydrogenase Troponin T C-Reactive Protein Total Protein Albumin Prealbumin Triglycerides Cholesterol LDL Cholesterol Direct HDL Cholesterol Urine pH Urine WBC (Auto) Urine Creatinine Urine Total Protein Fluid Total Protein Vancomycin Trough Rheumatoid Factor Complement C4 Miscellaneous Test Crossmatch 11/07/16 11/07/16 11/07/16 06:30 06:30 09:37 WBC RBC 2.18 L Hgb 6.3 L Hct 19.7 L* MCV MCH MCHC RDW 16.8 H Plt Count Lymph % (Auto) [place] % (Auto) 10.0 H Lymph # [place] # 1.0 H Baso # Seg Neutrophils % Seg Neuts % (Manual) Lymphocytes % (Manual) Monocytes % (Manual) Eosinophils % (Manual) Basophils % (Manual) Nucleated RBC % Seg Neutrophils # Seg Neutrophils # Man Lymphocytes # (Manual) Monocytes # (Manual) Eosinophils # (Manual) PT INR Fibrinogen dRVVT Confirm Interp Factor V Activity POC ABG pH POC ABG pCO2 POC ABG pO2 ABG pO2 ABG HCO3 ABG Hemoglobin Oxyhemoglobin Sodium 135 L Potassium Chloride 95.6 L Carbon Dioxide BUN 70 H Creatinine 2.0 H Glucose 126 H POC Glucose Lactic Acid Calcium Phosphorus Magnesium Direct Bilirubin AST ALT Alkaline Phosphatase Lactate Dehydrogenase Troponin T C-Reactive Protein Total Protein Albumin Prealbumin Triglycerides Cholesterol LDL Cholesterol Direct HDL Cholesterol Urine pH Urine WBC (Auto) Urine Creatinine Urine Total Protein Fluid Total Protein Vancomycin Trough Rheumatoid Factor Complement C4 Miscellaneous Test Crossmatch See Detail 11/07/16 11/07/16 11/07/16 12:52 18:51 21:26 WBC RBC Hgb Hct MCV MCH MCHC RDW Plt Count Lymph % (Auto) [place] % (Auto) Lymph # [place] # Baso # Seg Neutrophils % Seg Neuts % (Manual) Lymphocytes % (Manual) Monocytes % (Manual) Eosinophils % (Manual) Basophils % (Manual) Nucleated RBC % Seg Neutrophils # Seg Neutrophils # Man Lymphocytes # (Manual) Monocytes # (Manual) Eosinophils # (Manual) PT INR Fibrinogen dRVVT Confirm Interp Factor V Activity POC ABG pH 7.523 H POC ABG pCO2 34.6 L POC ABG pO2 53 L ABG pO2 ABG HCO3 ABG Hemoglobin Oxyhemoglobin Sodium Potassium Chloride Carbon Dioxide BUN Creatinine Glucose POC Glucose 142 H 155 H Lactic Acid Calcium Phosphorus Magnesium Direct Bilirubin AST ALT Alkaline Phosphatase Lactate Dehydrogenase Troponin T C-Reactive Protein Total Protein Albumin Prealbumin Triglycerides Cholesterol LDL Cholesterol Direct HDL Cholesterol Urine pH Urine WBC (Auto) Urine Creatinine Urine Total Protein Fluid Total Protein Vancomycin Trough Rheumatoid Factor Complement C4 Miscellaneous Test Crossmatch 11/07/16 11/08/16 11/08/16 21:34 13:03 23:37 WBC RBC 2.63 L Hgb 7.7 L Hct 22.7 L MCV MCH MCHC RDW 17.0 H Plt Count Lymph % (Auto) [place] % (Auto) Lymph # [place] # Baso # Seg Neutrophils % Seg Neuts % (Manual) Lymphocytes % (Manual) Monocytes % (Manual) Eosinophils % (Manual) Basophils % (Manual) Nucleated RBC % Seg Neutrophils # Seg Neutrophils # Man Lymphocytes # (Manual) Monocytes # (Manual) Eosinophils # (Manual) PT INR Fibrinogen dRVVT Confirm Interp Factor V Activity POC ABG pH 7.478 H POC ABG pCO2 34.0 L POC ABG pO2 50 L ABG pO2 ABG HCO3 ABG Hemoglobin Oxyhemoglobin Sodium Potassium Chloride Carbon Dioxide BUN Creatinine Glucose POC Glucose 113 H Lactic Acid Calcium Phosphorus Magnesium Direct Bilirubin AST ALT Alkaline Phosphatase Lactate Dehydrogenase Troponin T C-Reactive Protein Total Protein Albumin Prealbumin Triglycerides Cholesterol LDL Cholesterol Direct HDL Cholesterol Urine pH Urine WBC (Auto) Urine Creatinine Urine Total Protein Fluid Total Protein Vancomycin Trough Rheumatoid Factor Complement C4 Miscellaneous Test Crossmatch 11/09/16 11/09/16 11/09/16 04:35 10:15 18:21 WBC RBC 2.68 L Hgb 7.8 L Hct 23.3 L MCV MCH MCHC RDW 17.0 H Plt Count Lymph % (Auto) [place] % (Auto) 12.1 H Lymph # [place] # 1.1 H Baso # Seg Neutrophils % Seg Neuts % (Manual) Lymphocytes % (Manual) Monocytes % (Manual) Eosinophils % (Manual) Basophils % (Manual) Nucleated RBC % Seg Neutrophils # Seg Neutrophils # Man Lymphocytes # (Manual) Monocytes # (Manual) Eosinophils # (Manual) PT INR Fibrinogen dRVVT Confirm Interp Factor V Activity POC ABG pH POC ABG pCO2 POC ABG pO2 ABG pO2 ABG HCO3 ABG Hemoglobin Oxyhemoglobin Sodium Potassium Chloride Carbon Dioxide BUN 51 H Creatinine 1.8 H Glucose POC Glucose 60 L Lactic Acid Calcium 8.3 L Phosphorus Magnesium Direct Bilirubin AST ALT Alkaline Phosphatase Lactate Dehydrogenase Troponin T C-Reactive Protein Total Protein Albumin Prealbumin Triglycerides Cholesterol LDL Cholesterol Direct HDL Cholesterol Urine pH Urine WBC (Auto) Urine Creatinine Urine Total Protein Fluid Total Protein Vancomycin Trough Rheumatoid Factor Complement C4 Miscellaneous Test Crossmatch 11/09/16 11/10/16 11/10/16 18:55 07:00 11:51 WBC RBC Hgb Hct MCV MCH MCHC RDW Plt Count Lymph % (Auto) [place] % (Auto) Lymph # [place] # Baso # Seg Neutrophils % Seg Neuts % (Manual) Lymphocytes % (Manual) Monocytes % (Manual) Eosinophils % (Manual) Basophils % (Manual) Nucleated RBC % Seg Neutrophils # Seg Neutrophils # Man Lymphocytes # (Manual) Monocytes # (Manual) Eosinophils # (Manual) PT INR Fibrinogen dRVVT Confirm Interp Factor V Activity POC ABG pH POC ABG pCO2 POC ABG pO2 ABG pO2 ABG HCO3 ABG Hemoglobin Oxyhemoglobin Sodium Potassium 3.0 L D Chloride 97.4 L Carbon Dioxide BUN 28 H Creatinine 1.3 H Glucose POC Glucose 68 L 120 H Lactic Acid Calcium 7.8 L Phosphorus Magnesium Direct Bilirubin AST ALT Alkaline Phosphatase Lactate Dehydrogenase Troponin T C-Reactive Protein Total Protein Albumin Prealbumin Triglycerides Cholesterol LDL Cholesterol Direct HDL Cholesterol Urine pH Urine WBC (Auto) Urine Creatinine Urine Total Protein Fluid Total Protein Vancomycin Trough Rheumatoid Factor Complement C4 Miscellaneous Test Crossmatch 11/10/16 11/11/16 11/11/16 14:20 06:59 06:59 WBC RBC 2.81 L Hgb 8.1 L Hct 24.4 L MCV MCH MCHC RDW 16.4 H Plt Count Lymph % (Auto) [place] % (Auto) 10.8 H Lymph # [place] # 1.0 H Baso # Seg Neutrophils % Seg Neuts % (Manual) Lymphocytes % (Manual) Monocytes % (Manual) Eosinophils % (Manual) Basophils % (Manual) Nucleated RBC % Seg Neutrophils # Seg Neutrophils # Man Lymphocytes # (Manual) Monocytes # (Manual) Eosinophils # (Manual) PT INR Fibrinogen dRVVT Confirm Interp Factor V Activity POC ABG pH POC ABG pCO2 POC ABG pO2 ABG pO2 ABG HCO3 ABG Hemoglobin Oxyhemoglobin Sodium Potassium Chloride Carbon Dioxide BUN Creatinine Glucose POC Glucose Lactic Acid Calcium Phosphorus Magnesium Direct Bilirubin AST ALT Alkaline Phosphatase Lactate Dehydrogenase 196 H Troponin T C-Reactive Protein Total Protein 6.1 L Albumin Prealbumin Triglycerides Cholesterol LDL Cholesterol Direct HDL Cholesterol Urine pH Urine WBC (Auto) Urine Creatinine Urine Total Protein Fluid Total Protein < 3.0 L Vancomycin Trough Rheumatoid Factor Complement C4 Miscellaneous Test Crossmatch 11/11/16 11/11/16 11/12/16 06:59 09:50 04:00 WBC RBC Hgb Hct MCV MCH MCHC RDW Plt Count Lymph % (Auto) [place] % (Auto) Lymph # [place] # Baso # Seg Neutrophils % Seg Neuts % (Manual) Lymphocytes % (Manual) Monocytes % (Manual) Eosinophils % (Manual) Basophils % (Manual) Nucleated RBC % Seg Neutrophils # Seg Neutrophils # Man Lymphocytes # (Manual) Monocytes # (Manual) Eosinophils # (Manual) PT INR 1.18 H Fibrinogen dRVVT Confirm Interp Factor V Activity POC ABG pH POC ABG pCO2 POC ABG pO2 ABG pO2 ABG HCO3 ABG Hemoglobin Oxyhemoglobin Sodium 136 L 133 L Potassium Chloride 96.1 L 94.8 L Carbon Dioxide 21 L BUN 37 H 42 H Creatinine 1.8 H 2.0 H Glucose POC Glucose Lactic Acid Calcium Phosphorus Magnesium Direct Bilirubin AST ALT Alkaline Phosphatase Lactate Dehydrogenase Troponin T C-Reactive Protein Total Protein Albumin Prealbumin Triglycerides Cholesterol LDL Cholesterol Direct HDL Cholesterol Urine pH Urine WBC (Auto) Urine Creatinine Urine Total Protein Fluid Total Protein Vancomycin Trough Rheumatoid Factor Complement C4 Miscellaneous Test Crossmatch 11/12/16 11/12/16 11/13/16 04:00 23:55 05:53 WBC RBC Hgb 8.9 L Hct 27.2 L MCV MCH MCHC RDW Plt Count Lymph % (Auto) [place] % (Auto) Lymph # [place] # Baso # Seg Neutrophils % Seg Neuts % (Manual) Lymphocytes % (Manual) Monocytes % (Manual) Eosinophils % (Manual) Basophils % (Manual) Nucleated RBC % Seg Neutrophils # Seg Neutrophils # Man Lymphocytes # (Manual) Monocytes # (Manual) Eosinophils # (Manual) PT INR Fibrinogen dRVVT Confirm Interp Factor V Activity POC ABG pH POC ABG pCO2 POC ABG pO2 ABG pO2 ABG HCO3 ABG Hemoglobin Oxyhemoglobin Sodium Potassium Chloride Carbon Dioxide BUN Creatinine Glucose POC Glucose 132 H 120 H Lactic Acid Calcium Phosphorus Magnesium Direct Bilirubin AST ALT Alkaline Phosphatase Lactate Dehydrogenase Troponin T C-Reactive Protein Total Protein Albumin Prealbumin Triglycerides Cholesterol LDL Cholesterol Direct HDL Cholesterol Urine pH Urine WBC (Auto) Urine Creatinine Urine Total Protein Fluid Total Protein Vancomycin Trough Rheumatoid Factor Complement C4 Miscellaneous Test Crossmatch 11/13/16 11/13/16 11/13/16 11:43 17:09 23:41 WBC RBC Hgb Hct MCV MCH MCHC RDW Plt Count Lymph % (Auto) [place] % (Auto) Lymph # [place] # Baso # Seg Neutrophils % Seg Neuts % (Manual) Lymphocytes % (Manual) Monocytes % (Manual) Eosinophils % (Manual) Basophils % (Manual) Nucleated RBC % Seg Neutrophils # Seg Neutrophils # Man Lymphocytes # (Manual) Monocytes # (Manual) Eosinophils # (Manual) PT INR Fibrinogen dRVVT Confirm Interp Factor V Activity POC ABG pH POC ABG pCO2 POC ABG pO2 ABG pO2 ABG HCO3 ABG Hemoglobin Oxyhemoglobin Sodium Potassium Chloride Carbon Dioxide BUN Creatinine Glucose POC Glucose 114 H 113 H 108 H Lactic Acid Calcium Phosphorus Magnesium Direct Bilirubin AST ALT Alkaline Phosphatase Lactate Dehydrogenase Troponin T C-Reactive Protein Total Protein Albumin Prealbumin Triglycerides Cholesterol LDL Cholesterol Direct HDL Cholesterol Urine pH Urine WBC (Auto) Urine Creatinine Urine Total Protein Fluid Total Protein Vancomycin Trough Rheumatoid Factor Complement C4 Miscellaneous Test Crossmatch 11/13/16 11/15/16 11/15/16 Unknown 00:37 03:30 WBC 11.2 H RBC 2.72 L Hgb 7.6 L Hct 23.4 L MCV MCH MCHC RDW 16.5 H Plt Count Lymph % (Auto) [place] % (Auto) Lymph # [place] # Baso # Seg Neutrophils % Seg Neuts % (Manual) Lymphocytes % (Manual) Monocytes % (Manual) Eosinophils % (Manual) Basophils % (Manual) Nucleated RBC % Seg Neutrophils # Seg Neutrophils # Man Lymphocytes # (Manual) Monocytes # (Manual) Eosinophils # (Manual) PT INR Fibrinogen dRVVT Confirm Interp Factor V Activity POC ABG pH POC ABG pCO2 POC ABG pO2 ABG pO2 ABG HCO3 ABG Hemoglobin Oxyhemoglobin Sodium 135 L Potassium Chloride 95.2 L Carbon Dioxide BUN 52 H Creatinine 2.2 H Glucose POC Glucose 108 H Lactic Acid Calcium Phosphorus Magnesium Direct Bilirubin AST ALT Alkaline Phosphatase Lactate Dehydrogenase Troponin T C-Reactive Protein Total Protein Albumin Prealbumin Triglycerides Cholesterol LDL Cholesterol Direct HDL Cholesterol Urine pH Urine WBC (Auto) Urine Creatinine Urine Total Protein Fluid Total Protein Vancomycin Trough Rheumatoid Factor Complement C4 Miscellaneous Test Crossmatch 11/15/16 11/15/16 11/15/16 03:30 05:04 11:50 WBC RBC Hgb Hct MCV MCH MCHC RDW Plt Count Lymph % (Auto) [place] % (Auto) Lymph # [place] # Baso # Seg Neutrophils % Seg Neuts % (Manual) Lymphocytes % (Manual) Monocytes % (Manual) Eosinophils % (Manual) Basophils % (Manual) Nucleated RBC % Seg Neutrophils # Seg Neutrophils # Man Lymphocytes # (Manual) Monocytes # (Manual) Eosinophils # (Manual) PT INR Fibrinogen dRVVT Confirm Interp Factor V Activity POC ABG pH POC ABG pCO2 POC ABG pO2 ABG pO2 ABG HCO3 ABG Hemoglobin Oxyhemoglobin Sodium Potassium 3.4 L Chloride Carbon Dioxide BUN 25 H Creatinine 1.5 H Glucose 103 H POC Glucose 121 H 144 H Lactic Acid Calcium Phosphorus Magnesium Direct Bilirubin AST ALT Alkaline Phosphatase Lactate Dehydrogenase Troponin T C-Reactive Protein Total Protein Albumin Prealbumin Triglycerides Cholesterol LDL Cholesterol Direct HDL Cholesterol Urine pH Urine WBC (Auto) Urine Creatinine Urine Total Protein Fluid Total Protein Vancomycin Trough Rheumatoid Factor Complement C4 Miscellaneous Test Crossmatch 11/15/16 11/15/16 11/16/16 21:28 23:20 11:44 WBC RBC Hgb Hct MCV MCH MCHC RDW Plt Count Lymph % (Auto) [place] % (Auto) Lymph # [place] # Baso # Seg Neutrophils % Seg Neuts % (Manual) Lymphocytes % (Manual) Monocytes % (Manual) Eosinophils % (Manual) Basophils % (Manual) Nucleated RBC % Seg Neutrophils # Seg Neutrophils # Man Lymphocytes # (Manual) Monocytes # (Manual) Eosinophils # (Manual) PT INR Fibrinogen dRVVT Confirm Interp Factor V Activity POC ABG pH 7.462 H POC ABG pCO2 POC ABG pO2 71 L ABG pO2 ABG HCO3 ABG Hemoglobin Oxyhemoglobin Sodium Potassium Chloride Carbon Dioxide BUN Creatinine Glucose POC Glucose 116 H 133 H Lactic Acid Calcium Phosphorus Magnesium Direct Bilirubin AST ALT Alkaline Phosphatase Lactate Dehydrogenase Troponin T C-Reactive Protein Total Protein Albumin Prealbumin Triglycerides Cholesterol LDL Cholesterol Direct HDL Cholesterol Urine pH Urine WBC (Auto) Urine Creatinine Urine Total Protein Fluid Total Protein Vancomycin Trough Rheumatoid Factor Complement C4 Miscellaneous Test Crossmatch 11/16/16 11/16/16 11/16/16 12:20 17:05 23:35 WBC 11.7 H RBC 2.73 L Hgb 7.6 L Hct 23.7 L MCV MCH MCHC RDW 16.6 H Plt Count Lymph % (Auto) [place] % (Auto) Lymph # [place] # Baso # Seg Neutrophils % Seg Neuts % (Manual) Lymphocytes % (Manual) Monocytes % (Manual) Eosinophils % (Manual) Basophils % (Manual) Nucleated RBC % Seg Neutrophils # Seg Neutrophils # Man Lymphocytes # (Manual) Monocytes # (Manual) Eosinophils # (Manual) PT INR Fibrinogen dRVVT Confirm Interp Factor V Activity POC ABG pH POC ABG pCO2 POC ABG pO2 ABG pO2 ABG HCO3 ABG Hemoglobin Oxyhemoglobin Sodium Potassium Chloride Carbon Dioxide BUN Creatinine Glucose POC Glucose 154 H 125 H Lactic Acid Calcium Phosphorus Magnesium Direct Bilirubin AST ALT Alkaline Phosphatase Lactate Dehydrogenase Troponin T C-Reactive Protein Total Protein Albumin Prealbumin Triglycerides Cholesterol LDL Cholesterol Direct HDL Cholesterol Urine pH Urine WBC (Auto) Urine Creatinine Urine Total Protein Fluid Total Protein Vancomycin Trough Rheumatoid Factor Complement C4 Miscellaneous Test Crossmatch 11/17/16 11/17/16 11/17/16 03:20 03:20 03:20 WBC RBC 2.55 L Hgb 7.3 L Hct 21.9 L MCV MCH MCHC RDW 16.6 H Plt Count Lymph % (Auto) [place] % (Auto) 11.5 H Lymph # [place] # 1.1 H Baso # Seg Neutrophils % Seg Neuts % (Manual) Lymphocytes % (Manual) Monocytes % (Manual) Eosinophils % (Manual) Basophils % (Manual) Nucleated RBC % Seg Neutrophils # Seg Neutrophils # Man Lymphocytes # (Manual) Monocytes # (Manual) Eosinophils # (Manual) PT 16.8 H INR 1.37 H Fibrinogen dRVVT Confirm Interp Factor V Activity POC ABG pH POC ABG pCO2 POC ABG pO2 ABG pO2 ABG HCO3 ABG Hemoglobin Oxyhemoglobin Sodium Potassium 3.5 L Chloride Carbon Dioxide BUN 21 H Creatinine Glucose POC Glucose Lactic Acid Calcium 7.9 L Phosphorus Magnesium Direct Bilirubin AST ALT Alkaline Phosphatase Lactate Dehydrogenase Troponin T C-Reactive Protein Total Protein Albumin Prealbumin Triglycerides Cholesterol LDL Cholesterol Direct HDL Cholesterol Urine pH Urine WBC (Auto) Urine Creatinine Urine Total Protein Fluid Total Protein Vancomycin Trough Rheumatoid Factor Complement C4 Miscellaneous Test Crossmatch 0911/17/16 11/17/16 06:34 11:21 21:22 WBC RBC Hgb Hct MCV MCH MCHC RDW Plt Count Lymph % (Auto) [place] % (Auto) Lymph # [place] # Baso # Seg Neutrophils % Seg Neuts % (Manual) Lymphocytes % (Manual) Monocytes % (Manual) Eosinophils % (Manual) Basophils % (Manual) Nucleated RBC % Seg Neutrophils # Seg Neutrophils # Man Lymphocytes # (Manual) Monocytes # (Manual) Eosinophils # (Manual) PT INR Fibrinogen dRVVT Confirm Interp Factor V Activity POC ABG pH 7.467 H POC ABG pCO2 POC ABG pO2 73 L ABG pO2 ABG HCO3 ABG Hemoglobin Oxyhemoglobin Sodium Potassium Chloride Carbon Dioxide BUN Creatinine Glucose POC Glucose 121 H 119 H Lactic Acid Calcium Phosphorus Magnesium Direct Bilirubin AST ALT Alkaline Phosphatase Lactate Dehydrogenase Troponin T C-Reactive Protein Total Protein Albumin Prealbumin Triglycerides Cholesterol LDL Cholesterol Direct HDL Cholesterol Urine pH Urine WBC (Auto) Urine Creatinine Urine Total Protein Fluid Total Protein Vancomycin Trough Rheumatoid Factor Complement C4 Miscellaneous Test Crossmatch 11/18/16 11/18/16 11/19/16 12:16 17:19 00:00 WBC RBC Hgb Hct MCV MCH MCHC RDW Plt Count Lymph % (Auto) [place] % (Auto) Lymph # [place] # Baso # Seg Neutrophils % Seg Neuts % (Manual) Lymphocytes % (Manual) Monocytes % (Manual) Eosinophils % (Manual) Basophils % (Manual) Nucleated RBC % Seg Neutrophils # Seg Neutrophils # Man Lymphocytes # (Manual) Monocytes # (Manual) Eosinophils # (Manual) PT INR Fibrinogen dRVVT Confirm Interp Factor V Activity POC ABG pH POC ABG pCO2 POC ABG pO2 ABG pO2 ABG HCO3 ABG Hemoglobin Oxyhemoglobin Sodium Potassium Chloride Carbon Dioxide BUN Creatinine Glucose POC Glucose 124 H 162 H 139 H Lactic Acid Calcium Phosphorus Magnesium Direct Bilirubin AST ALT Alkaline Phosphatase Lactate Dehydrogenase Troponin T C-Reactive Protein Total Protein Albumin Prealbumin Triglycerides Cholesterol LDL Cholesterol Direct HDL Cholesterol Urine pH Urine WBC (Auto) Urine Creatinine Urine Total Protein Fluid Total Protein Vancomycin Trough Rheumatoid Factor Complement C4 Miscellaneous Test Crossmatch 11/19/16 11/19/16 11/20/16 05:00 12:43 00:40 WBC RBC Hgb Hct MCV MCH MCHC RDW Plt Count Lymph % (Auto) [place] % (Auto) Lymph # [place] # Baso # Seg Neutrophils % Seg Neuts % (Manual) Lymphocytes % (Manual) Monocytes % (Manual) Eosinophils % (Manual) Basophils % (Manual) Nucleated RBC % Seg Neutrophils # Seg Neutrophils # Man Lymphocytes # (Manual) Monocytes # (Manual) Eosinophils # (Manual) PT INR Fibrinogen dRVVT Confirm Interp Factor V Activity POC ABG pH POC ABG pCO2 POC ABG pO2 ABG pO2 ABG HCO3 ABG Hemoglobin Oxyhemoglobin Sodium Potassium Chloride Carbon Dioxide BUN Creatinine Glucose POC Glucose 110 H 125 H 136 H Lactic Acid Calcium Phosphorus Magnesium Direct Bilirubin AST ALT Alkaline Phosphatase Lactate Dehydrogenase Troponin T C-Reactive Protein Total Protein Albumin Prealbumin Triglycerides Cholesterol LDL Cholesterol Direct HDL Cholesterol Urine pH Urine WBC (Auto) Urine Creatinine Urine Total Protein Fluid Total Protein Vancomycin Trough Rheumatoid Factor Complement C4 Miscellaneous Test Crossmatch 11/20/16 11/20/16 11/20/16 05:00 05:00 05:51 WBC 13.1 H RBC 2.74 L Hgb 7.7 L Hct 23.6 L MCV MCH MCHC RDW 16.9 H Plt Count Lymph % (Auto) [place] % (Auto) 10.8 H Lymph # [place] # 1.4 H Baso # Seg Neutrophils % Seg Neuts % (Manual) Lymphocytes % (Manual) Monocytes % (Manual) Eosinophils % (Manual) Basophils % (Manual) Nucleated RBC % Seg Neutrophils # 7.9 H Seg Neutrophils # Man Lymphocytes # (Manual) Monocytes # (Manual) Eosinophils # (Manual) PT INR Fibrinogen dRVVT Confirm Interp Factor V Activity POC ABG pH POC ABG pCO2 POC ABG pO2 ABG pO2 ABG HCO3 ABG Hemoglobin Oxyhemoglobin Sodium Potassium Chloride Carbon Dioxide BUN 31 H Creatinine 1.8 H Glucose 129 H POC Glucose 133 H Lactic Acid Calcium Phosphorus Magnesium Direct Bilirubin AST ALT Alkaline Phosphatase Lactate Dehydrogenase Troponin T C-Reactive Protein Total Protein Albumin Prealbumin Triglycerides Cholesterol LDL Cholesterol Direct HDL Cholesterol Urine pH Urine WBC (Auto) Urine Creatinine Urine Total Protein Fluid Total Protein Vancomycin Trough Rheumatoid Factor Complement C4 Miscellaneous Test Crossmatch 11/20/16 11/20/16 11/21/16 12:40 18:10 01:20 WBC RBC Hgb Hct MCV MCH MCHC RDW Plt Count Lymph % (Auto) [place] % (Auto) Lymph # [place] # Baso # Seg Neutrophils % Seg Neuts % (Manual) Lymphocytes % (Manual) Monocytes % (Manual) Eosinophils % (Manual) Basophils % (Manual) Nucleated RBC % Seg Neutrophils # Seg Neutrophils # Man Lymphocytes # (Manual) Monocytes # (Manual) Eosinophils # (Manual) PT INR Fibrinogen dRVVT Confirm Interp Factor V Activity POC ABG pH POC ABG pCO2 POC ABG pO2 ABG pO2 ABG HCO3 ABG Hemoglobin Oxyhemoglobin Sodium Potassium Chloride Carbon Dioxide BUN Creatinine Glucose POC Glucose 134 H 138 H 136 H Lactic Acid Calcium Phosphorus Magnesium Direct Bilirubin AST ALT Alkaline Phosphatase Lactate Dehydrogenase Troponin T C-Reactive Protein Total Protein Albumin Prealbumin Triglycerides Cholesterol LDL Cholesterol Direct HDL Cholesterol Urine pH Urine WBC (Auto) Urine Creatinine Urine Total Protein Fluid Total Protein Vancomycin Trough Rheumatoid Factor Complement C4 Miscellaneous Test Crossmatch 11/21/16 11/21/16 11/21/16 07:04 07:45 07:45 WBC 22.0 H RBC 2.91 L Hgb 8.2 L Hct 25.4 L MCV MCH MCHC RDW 17.1 H Plt Count Lymph % (Auto) [place] % (Auto) Lymph # [place] # Baso # Seg Neutrophils % Seg Neuts % (Manual) Lymphocytes % (Manual) 8.0 L Monocytes % (Manual) Eosinophils % (Manual) Basophils % (Manual) Nucleated RBC % Seg Neutrophils # Seg Neutrophils # Man 14.7 H Lymphocytes # (Manual) Monocytes # (Manual) 1.1 H Eosinophils # (Manual) PT INR Fibrinogen dRVVT Confirm Interp Factor V Activity POC ABG pH POC ABG pCO2 POC ABG pO2 ABG pO2 ABG HCO3 ABG Hemoglobin Oxyhemoglobin Sodium Potassium Chloride Carbon Dioxide BUN 42 H Creatinine 2.0 H Glucose POC Glucose 108 H Lactic Acid Calcium Phosphorus Magnesium Direct Bilirubin AST ALT Alkaline Phosphatase Lactate Dehydrogenase Troponin T C-Reactive Protein Total Protein Albumin Prealbumin Triglycerides Cholesterol LDL Cholesterol Direct HDL Cholesterol Urine pH Urine WBC (Auto) Urine Creatinine Urine Total Protein Fluid Total Protein Vancomycin Trough Rheumatoid Factor Complement C4 Miscellaneous Test Crossmatch 11/21/16 11/21/16 11/21/16 08:38 10:09 11:20 WBC RBC Hgb Hct MCV MCH MCHC RDW Plt Count Lymph % (Auto) [place] % (Auto) Lymph # [place] # Baso # Seg Neutrophils % Seg Neuts % (Manual) Lymphocytes % (Manual) Monocytes % (Manual) Eosinophils % (Manual) Basophils % (Manual) Nucleated RBC % Seg Neutrophils # Seg Neutrophils # Man Lymphocytes # (Manual) Monocytes # (Manual) Eosinophils # (Manual) PT INR Fibrinogen dRVVT Confirm Interp Factor V Activity POC ABG pH 7.346 L POC ABG pCO2 34.4 L POC ABG pO2 314 H ABG pO2 ABG HCO3 ABG Hemoglobin Oxyhemoglobin Sodium Potassium Chloride Carbon Dioxide BUN Creatinine Glucose POC Glucose 195 H 153 H Lactic Acid Calcium Phosphorus Magnesium Direct Bilirubin AST ALT Alkaline Phosphatase Lactate Dehydrogenase Troponin T C-Reactive Protein Total Protein Albumin Prealbumin Triglycerides Cholesterol LDL Cholesterol Direct HDL Cholesterol Urine pH Urine WBC (Auto) Urine Creatinine Urine Total Protein Fluid Total Protein Vancomycin Trough Rheumatoid Factor Complement C4 Miscellaneous Test Crossmatch 11/21/16 11/22/16 11/22/16 23:37 04:48 05:00 WBC 29.7 H RBC 2.73 L Hgb 7.5 L Hct 24.2 L MCV MCH 27 L MCHC RDW 17.4 H Plt Count Lymph % (Auto) [place] % (Auto) Lymph # [place] # Baso # Seg Neutrophils % Seg Neuts % (Manual) Lymphocytes % (Manual) 7.0 L Monocytes % (Manual) Eosinophils % (Manual) Basophils % (Manual) Nucleated RBC % Seg Neutrophils # Seg Neutrophils # Man 15.4 H Lymphocytes # (Manual) Monocytes # (Manual) Eosinophils # (Manual) PT INR Fibrinogen dRVVT Confirm Interp Factor V Activity POC ABG pH POC ABG pCO2 24.6 L POC ABG pO2 189 H ABG pO2 ABG HCO3 ABG Hemoglobin Oxyhemoglobin Sodium Potassium Chloride Carbon Dioxide BUN Creatinine Glucose POC Glucose 65 L Lactic Acid Calcium Phosphorus Magnesium Direct Bilirubin AST ALT Alkaline Phosphatase Lactate Dehydrogenase Troponin T C-Reactive Protein Total Protein Albumin Prealbumin Triglycerides Cholesterol LDL Cholesterol Direct HDL Cholesterol Urine pH Urine WBC (Auto) Urine Creatinine Urine Total Protein Fluid Total Protein Vancomycin Trough Rheumatoid Factor Complement C4 Miscellaneous Test Crossmatch 11/22/16 11/23/16 11/23/16 05:00 03:44 04:06 WBC RBC 2.52 L Hgb 7.2 L Hct 21.5 L MCV MCH MCHC RDW 17.1 H Plt Count Lymph % (Auto) [place] % (Auto) 12.4 H Lymph # [place] # 1.4 H Baso # Seg Neutrophils % Seg Neuts % (Manual) Lymphocytes % (Manual) Monocytes % (Manual) Eosinophils % (Manual) Basophils % (Manual) Nucleated RBC % Seg Neutrophils # Seg Neutrophils # Man Lymphocytes # (Manual) Monocytes # (Manual) Eosinophils # (Manual) PT INR Fibrinogen dRVVT Confirm Interp Factor V Activity POC ABG pH 7.493 H POC ABG pCO2 29.5 L POC ABG pO2 49 L ABG pO2 ABG HCO3 ABG Hemoglobin Oxyhemoglobin Sodium 134 L Potassium Chloride 95.9 L Carbon Dioxide 14 L D BUN 51 H Creatinine 2.6 H Glucose POC Glucose Lactic Acid Calcium Phosphorus Magnesium Direct Bilirubin AST ALT Alkaline Phosphatase Lactate Dehydrogenase Troponin T C-Reactive Protein Total Protein Albumin Prealbumin Triglycerides Cholesterol LDL Cholesterol Direct HDL Cholesterol Urine pH Urine WBC (Auto) Urine Creatinine Urine Total Protein Fluid Total Protein Vancomycin Trough Rheumatoid Factor Complement C4 Miscellaneous Test Crossmatch 11/23/16 11/23/16 11/24/16 04:06 11:29 06:39 WBC RBC Hgb Hct MCV MCH MCHC RDW Plt Count Lymph % (Auto) [place] % (Auto) Lymph # [place] # Baso # Seg Neutrophils % Seg Neuts % (Manual) Lymphocytes % (Manual) Monocytes % (Manual) Eosinophils % (Manual) Basophils % (Manual) Nucleated RBC % Seg Neutrophils # Seg Neutrophils # Man Lymphocytes # (Manual) Monocytes # (Manual) Eosinophils # (Manual) PT INR Fibrinogen dRVVT Confirm Interp Factor V Activity POC ABG pH POC ABG pCO2 POC ABG pO2 ABG pO2 ABG HCO3 ABG Hemoglobin Oxyhemoglobin Sodium 136 L Potassium Chloride 95.2 L Carbon Dioxide BUN 60 H Creatinine 2.9 H Glucose POC Glucose 69 L 305 H Lactic Acid Calcium Phosphorus Magnesium 1.60 L Direct Bilirubin AST ALT Alkaline Phosphatase Lactate Dehydrogenase Troponin T C-Reactive Protein Total Protein Albumin Prealbumin Triglycerides Cholesterol LDL Cholesterol Direct HDL Cholesterol Urine pH Urine WBC (Auto) Urine Creatinine Urine Total Protein Fluid Total Protein Vancomycin Trough Rheumatoid Factor Complement C4 Miscellaneous Test Crossmatch 11/24/16 11/24/16 11/24/16 06:43 08:08 08:08 WBC 11.2 H RBC 2.47 L Hgb 6.8 L Hct 20.6 L MCV MCH MCHC RDW 17.0 H Plt Count Lymph % (Auto) [place] % (Auto) 10.3 H Lymph # [place] # 1.2 H Baso # Seg Neutrophils % Seg Neuts % (Manual) Lymphocytes % (Manual) Monocytes % (Manual) Eosinophils % (Manual) Basophils % (Manual) Nucleated RBC % Seg Neutrophils # Seg Neutrophils # Man Lymphocytes # (Manual) Monocytes # (Manual) Eosinophils # (Manual) PT INR Fibrinogen dRVVT Confirm Interp Factor V Activity POC ABG pH POC ABG pCO2 POC ABG pO2 ABG pO2 ABG HCO3 ABG Hemoglobin Oxyhemoglobin Sodium 135 L Potassium Chloride 96.3 L Carbon Dioxide BUN 61 H Creatinine 3.1 H Glucose POC Glucose 62 L Lactic Acid Calcium 8.2 L Phosphorus Magnesium Direct Bilirubin AST ALT Alkaline Phosphatase Lactate Dehydrogenase Troponin T C-Reactive Protein Total Protein Albumin Prealbumin Triglycerides Cholesterol LDL Cholesterol Direct HDL Cholesterol Urine pH Urine WBC (Auto) Urine Creatinine Urine Total Protein Fluid Total Protein Vancomycin Trough Rheumatoid Factor Complement C4 Miscellaneous Test Crossmatch 11/24/16 11/24/16 11/24/16 08:34 11:20 12:41 WBC RBC Hgb Hct MCV MCH MCHC RDW Plt Count Lymph % (Auto) [place] % (Auto) Lymph # [place] # Baso # Seg Neutrophils % Seg Neuts % (Manual) Lymphocytes % (Manual) Monocytes % (Manual) Eosinophils % (Manual) Basophils % (Manual) Nucleated RBC % Seg Neutrophils # Seg Neutrophils # Man Lymphocytes # (Manual) Monocytes # (Manual) Eosinophils # (Manual) PT INR Fibrinogen dRVVT Confirm Interp Factor V Activity POC ABG pH POC ABG pCO2 POC ABG pO2 ABG pO2 ABG HCO3 ABG Hemoglobin Oxyhemoglobin Sodium Potassium Chloride Carbon Dioxide BUN Creatinine Glucose POC Glucose 108 H Lactic Acid Calcium Phosphorus Magnesium 1.60 L Direct Bilirubin AST ALT Alkaline Phosphatase Lactate Dehydrogenase Troponin T C-Reactive Protein Total Protein Albumin Prealbumin Triglycerides Cholesterol LDL Cholesterol Direct HDL Cholesterol Urine pH Urine WBC (Auto) Urine Creatinine Urine Total Protein Fluid Total Protein Vancomycin Trough Rheumatoid Factor Complement C4 Miscellaneous Test Crossmatch See Detail 11/25/16 11/25/16 11/25/16 00:03 04:42 04:42 WBC RBC 3.03 L Hgb 8.6 L Hct 25.3 L MCV MCH MCHC RDW 16.2 H Plt Count Lymph % (Auto) [place] % (Auto) 8.1 H Lymph # [place] # Baso # Seg Neutrophils % 71.3 H Seg Neuts % (Manual) Lymphocytes % (Manual) Monocytes % (Manual) Eosinophils % (Manual) Basophils % (Manual) Nucleated RBC % Seg Neutrophils # Seg Neutrophils # Man Lymphocytes # (Manual) Monocytes # (Manual) Eosinophils # (Manual) PT INR Fibrinogen dRVVT Confirm Interp Factor V Activity POC ABG pH POC ABG pCO2 POC ABG pO2 ABG pO2 ABG HCO3 ABG Hemoglobin Oxyhemoglobin Sodium Potassium Chloride Carbon Dioxide BUN 61 H Creatinine 3.0 H Glucose 102 H POC Glucose 113 H Lactic Acid Calcium 8.2 L Phosphorus Magnesium Direct Bilirubin AST ALT Alkaline Phosphatase 142 H Lactate Dehydrogenase Troponin T C-Reactive Protein Total Protein 5.7 L Albumin 1.5 L Prealbumin Triglycerides Cholesterol LDL Cholesterol Direct HDL Cholesterol Urine pH Urine WBC (Auto) Urine Creatinine Urine Total Protein Fluid Total Protein Vancomycin Trough Rheumatoid Factor Complement C4 Miscellaneous Test Crossmatch 11/25/16 11/25/16 11/25/16 05:12 11:31 14:12 WBC RBC Hgb Hct MCV MCH MCHC RDW Plt Count Lymph % (Auto) [place] % (Auto) Lymph # [place] # Baso # Seg Neutrophils % Seg Neuts % (Manual) Lymphocytes % (Manual) Monocytes % (Manual) Eosinophils % (Manual) Basophils % (Manual) Nucleated RBC % Seg Neutrophils # Seg Neutrophils # Man Lymphocytes # (Manual) Monocytes # (Manual) Eosinophils # (Manual) PT INR Fibrinogen dRVVT Confirm Interp Factor V Activity POC ABG pH 7.487 H POC ABG pCO2 POC ABG pO2 153 H ABG pO2 ABG HCO3 ABG Hemoglobin Oxyhemoglobin Sodium Potassium Chloride Carbon Dioxide BUN Creatinine Glucose POC Glucose 131 H 140 H Lactic Acid Calcium Phosphorus Magnesium Direct Bilirubin AST ALT Alkaline Phosphatase Lactate Dehydrogenase Troponin T C-Reactive Protein Total Protein Albumin Prealbumin Triglycerides Cholesterol LDL Cholesterol Direct HDL Cholesterol Urine pH Urine WBC (Auto) Urine Creatinine Urine Total Protein Fluid Total Protein Vancomycin Trough Rheumatoid Factor Complement C4 Miscellaneous Test Crossmatch 11/25/16 11/26/16 11/26/16 17:23 00:09 05:13 WBC RBC 2.94 L Hgb 8.4 L Hct 24.6 L MCV MCH MCHC RDW 16.4 H Plt Count Lymph % (Auto) [place] % (Auto) 12.3 H Lymph # [place] # 1.1 H Baso # Seg Neutrophils % Seg Neuts % (Manual) Lymphocytes % (Manual) Monocytes % (Manual) Eosinophils % (Manual) Basophils % (Manual) Nucleated RBC % Seg Neutrophils # Seg Neutrophils # Man Lymphocytes # (Manual) Monocytes # (Manual) Eosinophils # (Manual) PT INR Fibrinogen dRVVT Confirm Interp Factor V Activity POC ABG pH POC ABG pCO2 POC ABG pO2 ABG pO2 ABG HCO3 ABG Hemoglobin Oxyhemoglobin Sodium Potassium Chloride Carbon Dioxide BUN Creatinine Glucose POC Glucose 146 H 112 H Lactic Acid Calcium Phosphorus Magnesium Direct Bilirubin AST ALT Alkaline Phosphatase Lactate Dehydrogenase Troponin T C-Reactive Protein Total Protein Albumin Prealbumin Triglycerides Cholesterol LDL Cholesterol Direct HDL Cholesterol Urine pH Urine WBC (Auto) Urine Creatinine Urine Total Protein Fluid Total Protein Vancomycin Trough Rheumatoid Factor Complement C4 Miscellaneous Test Crossmatch 11/26/16 11/26/16 11/26/16 05:13 05:28 11:53 WBC RBC Hgb Hct MCV MCH MCHC RDW Plt Count Lymph % (Auto) [place] % (Auto) Lymph # [place] # Baso # Seg Neutrophils % Seg Neuts % (Manual) Lymphocytes % (Manual) Monocytes % (Manual) Eosinophils % (Manual) Basophils % (Manual) Nucleated RBC % Seg Neutrophils # Seg Neutrophils # Man Lymphocytes # (Manual) Monocytes # (Manual) Eosinophils # (Manual) PT INR Fibrinogen dRVVT Confirm Interp Factor V Activity POC ABG pH POC ABG pCO2 POC ABG pO2 ABG pO2 ABG HCO3 ABG Hemoglobin Oxyhemoglobin Sodium Potassium Chloride 97.8 L Carbon Dioxide BUN 37 H Creatinine 2.0 H Glucose 109 H POC Glucose 117 H 111 H Lactic Acid Calcium 7.9 L Phosphorus 1.80 L D Magnesium Direct Bilirubin AST ALT Alkaline Phosphatase Lactate Dehydrogenase Troponin T C-Reactive Protein Total Protein Albumin Prealbumin Triglycerides Cholesterol LDL Cholesterol Direct HDL Cholesterol Urine pH Urine WBC (Auto) Urine Creatinine Urine Total Protein Fluid Total Protein Vancomycin Trough Rheumatoid Factor Complement C4 Miscellaneous Test Crossmatch 11/26/16 11/27/16 11/27/16 17:14 04:50 06:02 WBC RBC Hgb Hct MCV MCH MCHC RDW Plt Count Lymph % (Auto) [place] % (Auto) Lymph # [place] # Baso # Seg Neutrophils % Seg Neuts % (Manual) Lymphocytes % (Manual) Monocytes % (Manual) Eosinophils % (Manual) Basophils % (Manual) Nucleated RBC % Seg Neutrophils # Seg Neutrophils # Man Lymphocytes # (Manual) Monocytes # (Manual) Eosinophils # (Manual) PT INR Fibrinogen dRVVT Confirm Interp Factor V Activity POC ABG pH POC ABG pCO2 POC ABG pO2 ABG pO2 75.2 L ABG HCO3 26.4 H ABG Hemoglobin 7.6 L Oxyhemoglobin 94.8 L Sodium Potassium Chloride Carbon Dioxide BUN 49 H Creatinine 2.3 H Glucose POC Glucose 115 H Lactic Acid Calcium Phosphorus 1.50 L Magnesium Direct Bilirubin AST ALT Alkaline Phosphatase Lactate Dehydrogenase Troponin T C-Reactive Protein Total Protein Albumin Prealbumin Triglycerides Cholesterol LDL Cholesterol Direct HDL Cholesterol Urine pH Urine WBC (Auto) Urine Creatinine Urine Total Protein Fluid Total Protein Vancomycin Trough Rheumatoid Factor Complement C4 Miscellaneous Test Crossmatch 11/27/16 11/27/16 11/27/16 06:02 11:25 17:25 WBC 11.6 H RBC 2.75 L Hgb 7.6 L Hct 23.4 L MCV MCH MCHC RDW 16.5 H Plt Count Lymph % (Auto) [place] % (Auto) Lymph # [place] # Baso # Seg Neutrophils % Seg Neuts % (Manual) Lymphocytes % (Manual) Monocytes % (Manual) Eosinophils % (Manual) Basophils % (Manual) Nucleated RBC % Seg Neutrophils # Seg Neutrophils # Man Lymphocytes # (Manual) Monocytes # (Manual) Eosinophils # (Manual) PT INR Fibrinogen dRVVT Confirm Interp Factor V Activity POC ABG pH POC ABG pCO2 POC ABG pO2 ABG pO2 ABG HCO3 ABG Hemoglobin Oxyhemoglobin Sodium Potassium Chloride Carbon Dioxide BUN Creatinine Glucose POC Glucose 114 H 126 H Lactic Acid Calcium Phosphorus Magnesium Direct Bilirubin AST ALT Alkaline Phosphatase Lactate Dehydrogenase Troponin T C-Reactive Protein Total Protein Albumin Prealbumin Triglycerides Cholesterol LDL Cholesterol Direct HDL Cholesterol Urine pH Urine WBC (Auto) Urine Creatinine Urine Total Protein Fluid Total Protein Vancomycin Trough Rheumatoid Factor Complement C4 Miscellaneous Test Crossmatch 11/28/16 11/28/16 11/28/16 04:45 05:33 05:44 WBC RBC Hgb Hct MCV MCH MCHC RDW Plt Count Lymph % (Auto) [place] % (Auto) Lymph # [place] # Baso # Seg Neutrophils % Seg Neuts % (Manual) Lymphocytes % (Manual) Monocytes % (Manual) Eosinophils % (Manual) Basophils % (Manual) Nucleated RBC % Seg Neutrophils # Seg Neutrophils # Man Lymphocytes # (Manual) Monocytes # (Manual) Eosinophils # (Manual) PT INR Fibrinogen dRVVT Confirm Interp Factor V Activity POC ABG pH POC ABG pCO2 POC ABG pO2 ABG pO2 99.3 H ABG HCO3 ABG Hemoglobin 8.3 L Oxyhemoglobin Sodium Potassium Chloride Carbon Dioxide BUN 63 H Creatinine 2.4 H Glucose 102 H POC Glucose 108 H Lactic Acid Calcium Phosphorus 1.80 L Magnesium Direct Bilirubin AST ALT Alkaline Phosphatase Lactate Dehydrogenase Troponin T C-Reactive Protein Total Protein Albumin Prealbumin Triglycerides Cholesterol LDL Cholesterol Direct HDL Cholesterol Urine pH Urine WBC (Auto) Urine Creatinine Urine Total Protein Fluid Total Protein Vancomycin Trough Rheumatoid Factor Complement C4 Miscellaneous Test Crossmatch 11/28/16 11/28/16 11/28/16 12:31 16:09 23:46 WBC RBC Hgb Hct MCV MCH MCHC RDW Plt Count Lymph % (Auto) [place] % (Auto) Lymph # [place] # Baso # Seg Neutrophils % Seg Neuts % (Manual) Lymphocytes % (Manual) Monocytes % (Manual) Eosinophils % (Manual) Basophils % (Manual) Nucleated RBC % Seg Neutrophils # Seg Neutrophils # Man Lymphocytes # (Manual) Monocytes # (Manual) Eosinophils # (Manual) PT INR Fibrinogen dRVVT Confirm Interp Factor V Activity POC ABG pH POC ABG pCO2 POC ABG pO2 ABG pO2 ABG HCO3 ABG Hemoglobin Oxyhemoglobin Sodium Potassium Chloride Carbon Dioxide BUN Creatinine Glucose POC Glucose 126 H 111 H 119 H Lactic Acid Calcium Phosphorus Magnesium Direct Bilirubin AST ALT Alkaline Phosphatase Lactate Dehydrogenase Troponin T C-Reactive Protein Total Protein Albumin Prealbumin Triglycerides Cholesterol LDL Cholesterol Direct HDL Cholesterol Urine pH Urine WBC (Auto) Urine Creatinine Urine Total Protein Fluid Total Protein Vancomycin Trough Rheumatoid Factor Complement C4 Miscellaneous Test Crossmatch 11/29/16 11/29/16 11/29/16 03:33 04:52 05:10 WBC RBC Hgb Hct MCV MCH MCHC RDW Plt Count Lymph % (Auto) [place] % (Auto) Lymph # [place] # Baso # Seg Neutrophils % Seg Neuts % (Manual) Lymphocytes % (Manual) Monocytes % (Manual) Eosinophils % (Manual) Basophils % (Manual) Nucleated RBC % Seg Neutrophils # Seg Neutrophils # Man Lymphocytes # (Manual) Monocytes # (Manual) Eosinophils # (Manual) PT INR Fibrinogen dRVVT Confirm Interp Factor V Activity POC ABG pH POC ABG pCO2 POC ABG pO2 ABG pO2 ABG HCO3 ABG Hemoglobin 7.0 L Oxyhemoglobin 94.9 L Sodium Potassium Chloride Carbon Dioxide BUN 73 H Creatinine 2.7 H Glucose POC Glucose 108 H Lactic Acid Calcium Phosphorus Magnesium Direct Bilirubin AST ALT Alkaline Phosphatase Lactate Dehydrogenase Troponin T C-Reactive Protein Total Protein Albumin Prealbumin Triglycerides Cholesterol LDL Cholesterol Direct HDL Cholesterol Urine pH Urine WBC (Auto) Urine Creatinine Urine Total Protein Fluid Total Protein Vancomycin Trough Rheumatoid Factor Complement C4 Miscellaneous Test Crossmatch 11/29/16 11/29/16 11/29/16 12:16 18:05 23:46 WBC RBC Hgb Hct MCV MCH MCHC RDW Plt Count Lymph % (Auto) [place] % (Auto) Lymph # [place] # Baso # Seg Neutrophils % Seg Neuts % (Manual) Lymphocytes % (Manual) Monocytes % (Manual) Eosinophils % (Manual) Basophils % (Manual) Nucleated RBC % Seg Neutrophils # Seg Neutrophils # Man Lymphocytes # (Manual) Monocytes # (Manual) Eosinophils # (Manual) PT INR Fibrinogen dRVVT Confirm Interp Factor V Activity POC ABG pH POC ABG pCO2 POC ABG pO2 ABG pO2 ABG HCO3 ABG Hemoglobin Oxyhemoglobin Sodium Potassium Chloride Carbon Dioxide BUN Creatinine Glucose POC Glucose 133 H 146 H 141 H Lactic Acid Calcium Phosphorus Magnesium Direct Bilirubin AST ALT Alkaline Phosphatase Lactate Dehydrogenase Troponin T C-Reactive Protein Total Protein Albumin Prealbumin Triglycerides Cholesterol LDL Cholesterol Direct HDL Cholesterol Urine pH Urine WBC (Auto) Urine Creatinine Urine Total Protein Fluid Total Protein Vancomycin Trough Rheumatoid Factor Complement C4 Miscellaneous Test Crossmatch 11/30/16 11/30/16 11/30/16 04:17 04:17 04:32 WBC 12.0 H RBC 2.80 L Hgb 7.8 L Hct 23.6 L MCV MCH MCHC RDW 16.6 H Plt Count Lymph % (Auto) [place] % (Auto) 11.3 H Lymph # [place] # 1.4 H Baso # Seg Neutrophils % Seg Neuts % (Manual) Lymphocytes % (Manual) Monocytes % (Manual) Eosinophils % (Manual) Basophils % (Manual) Nucleated RBC % Seg Neutrophils # 8.2 H Seg Neutrophils # Man Lymphocytes # (Manual) Monocytes # (Manual) Eosinophils # (Manual) PT INR Fibrinogen dRVVT Confirm Interp Factor V Activity POC ABG pH POC ABG pCO2 POC ABG pO2 ABG pO2 ABG HCO3 ABG Hemoglobin Oxyhemoglobin Sodium 169 H* D Potassium 5.1 H Chloride 121.5 H Carbon Dioxide BUN 34 H Creatinine 1.3 H D Glucose 133 H POC Glucose 131 H Lactic Acid Calcium 10.3 H Phosphorus Magnesium Direct Bilirubin AST ALT Alkaline Phosphatase Lactate Dehydrogenase Troponin T C-Reactive Protein Total Protein Albumin Prealbumin Triglycerides Cholesterol LDL Cholesterol Direct HDL Cholesterol Urine pH Urine WBC (Auto) Urine Creatinine Urine Total Protein Fluid Total Protein Vancomycin Trough Rheumatoid Factor Complement C4 Miscellaneous Test Crossmatch 11/30/16 11/30/16 11/30/16 05:45 11:10 17:26 WBC RBC Hgb Hct MCV MCH MCHC RDW Plt Count Lymph % (Auto) [place] % (Auto) Lymph # [place] # Baso # Seg Neutrophils % Seg Neuts % (Manual) Lymphocytes % (Manual) Monocytes % (Manual) Eosinophils % (Manual) Basophils % (Manual) Nucleated RBC % Seg Neutrophils # Seg Neutrophils # Man Lymphocytes # (Manual) Monocytes # (Manual) Eosinophils # (Manual) PT INR Fibrinogen dRVVT Confirm Interp Factor V Activity POC ABG pH POC ABG pCO2 POC ABG pO2 ABG pO2 ABG HCO3 ABG Hemoglobin Oxyhemoglobin Sodium Potassium Chloride Carbon Dioxide BUN 45 H Creatinine 1.6 H Glucose 131 H POC Glucose 146 H 134 H Lactic Acid Calcium Phosphorus Magnesium Direct Bilirubin AST ALT Alkaline Phosphatase Lactate Dehydrogenase Troponin T C-Reactive Protein Total Protein Albumin Prealbumin Triglycerides Cholesterol LDL Cholesterol Direct HDL Cholesterol Urine pH Urine WBC (Auto) Urine Creatinine Urine Total Protein Fluid Total Protein Vancomycin Trough Rheumatoid Factor Complement C4 Miscellaneous Test Crossmatch 11/30/16 12/01/16 12/01/16 23:35 00:06 03:35 WBC RBC Hgb Hct MCV MCH MCHC RDW Plt Count Lymph % (Auto) [place] % (Auto) Lymph # [place] # Baso # Seg Neutrophils % Seg Neuts % (Manual) Lymphocytes % (Manual) Monocytes % (Manual) Eosinophils % (Manual) Basophils % (Manual) Nucleated RBC % Seg Neutrophils # Seg Neutrophils # Man Lymphocytes # (Manual) Monocytes # (Manual) Eosinophils # (Manual) PT INR Fibrinogen dRVVT Confirm Interp Factor V Activity POC ABG pH POC ABG pCO2 POC ABG pO2 ABG pO2 ABG HCO3 ABG Hemoglobin 6.9 L Oxyhemoglobin Sodium Potassium Chloride Carbon Dioxide BUN 58 H Creatinine 1.8 H Glucose 146 H POC Glucose 151 H Lactic Acid Calcium Phosphorus Magnesium Direct Bilirubin AST ALT Alkaline Phosphatase Lactate Dehydrogenase Troponin T C-Reactive Protein Total Protein Albumin Prealbumin Triglycerides Cholesterol LDL Cholesterol Direct HDL Cholesterol Urine pH Urine WBC (Auto) Urine Creatinine Urine Total Protein Fluid Total Protein Vancomycin Trough Rheumatoid Factor Complement C4 Miscellaneous Test Crossmatch 12/01/16 12/01/16 12/01/16 03:35 05:47 11:52 WBC 12.3 H RBC 2.82 L Hgb 7.8 L Hct 23.7 L MCV MCH MCHC RDW 16.7 H Plt Count Lymph % (Auto) [place] % (Auto) 9.8 H Lymph # [place] # 1.2 H Baso # Seg Neutrophils % Seg Neuts % (Manual) Lymphocytes % (Manual) Monocytes % (Manual) Eosinophils % (Manual) Basophils % (Manual) Nucleated RBC % Seg Neutrophils # 8.4 H Seg Neutrophils # Man Lymphocytes # (Manual) Monocytes # (Manual) Eosinophils # (Manual) PT INR Fibrinogen dRVVT Confirm Interp Factor V Activity POC ABG pH POC ABG pCO2 POC ABG pO2 ABG pO2 ABG HCO3 ABG Hemoglobin Oxyhemoglobin Sodium Potassium Chloride Carbon Dioxide BUN Creatinine Glucose POC Glucose 152 H 152 H Lactic Acid Calcium Phosphorus Magnesium Direct Bilirubin AST ALT Alkaline Phosphatase Lactate Dehydrogenase Troponin T C-Reactive Protein Total Protein Albumin Prealbumin Triglycerides Cholesterol LDL Cholesterol Direct HDL Cholesterol Urine pH Urine WBC (Auto) Urine Creatinine Urine Total Protein Fluid Total Protein Vancomycin Trough Rheumatoid Factor Complement C4 Miscellaneous Test Crossmatch 12/01/16 12/01/16 12/02/16 17:40 23:41 05:00 WBC RBC Hgb Hct MCV MCH MCHC RDW Plt Count Lymph % (Auto) [place] % (Auto) Lymph # [place] # Baso # Seg Neutrophils % Seg Neuts % (Manual) Lymphocytes % (Manual) Monocytes % (Manual) Eosinophils % (Manual) Basophils % (Manual) Nucleated RBC % Seg Neutrophils # Seg Neutrophils # Man Lymphocytes # (Manual) Monocytes # (Manual) Eosinophils # (Manual) PT INR Fibrinogen dRVVT Confirm Interp Factor V Activity POC ABG pH POC ABG pCO2 POC ABG pO2 ABG pO2 ABG HCO3 ABG Hemoglobin Oxyhemoglobin Sodium Potassium Chloride Carbon Dioxide BUN 45 H Creatinine Glucose 115 H POC Glucose 140 H 144 H Lactic Acid Calcium Phosphorus Magnesium Direct Bilirubin AST ALT Alkaline Phosphatase Lactate Dehydrogenase Troponin T C-Reactive Protein Total Protein Albumin Prealbumin Triglycerides Cholesterol LDL Cholesterol Direct HDL Cholesterol Urine pH Urine WBC (Auto) Urine Creatinine Urine Total Protein Fluid Total Protein Vancomycin Trough Rheumatoid Factor Complement C4 Miscellaneous Test Crossmatch 12/02/16 12/02/16 12/02/16 05:31 11:20 17:38 WBC RBC Hgb Hct MCV MCH MCHC RDW Plt Count Lymph % (Auto) [place] % (Auto) Lymph # [place] # Baso # Seg Neutrophils % Seg Neuts % (Manual) Lymphocytes % (Manual) Monocytes % (Manual) Eosinophils % (Manual) Basophils % (Manual) Nucleated RBC % Seg Neutrophils # Seg Neutrophils # Man Lymphocytes # (Manual) Monocytes # (Manual) Eosinophils # (Manual) PT INR Fibrinogen dRVVT Confirm Interp Factor V Activity POC ABG pH POC ABG pCO2 POC ABG pO2 ABG pO2 ABG HCO3 ABG Hemoglobin Oxyhemoglobin Sodium Potassium Chloride Carbon Dioxide BUN Creatinine Glucose POC Glucose 136 H 177 H 139 H Lactic Acid Calcium Phosphorus Magnesium Direct Bilirubin AST ALT Alkaline Phosphatase Lactate Dehydrogenase Troponin T C-Reactive Protein Total Protein Albumin Prealbumin Triglycerides Cholesterol LDL Cholesterol Direct HDL Cholesterol Urine pH Urine WBC (Auto) Urine Creatinine Urine Total Protein Fluid Total Protein Vancomycin Trough Rheumatoid Factor Complement C4 Miscellaneous Test Crossmatch 12/02/16 12/03/16 12/03/16 23:43 04:00 04:00 WBC 20.4 H RBC 2.74 L Hgb 7.4 L Hct 23.6 L MCV MCH 27 L MCHC RDW 17.1 H Plt Count Lymph % (Auto) [place] % (Auto) Lymph # [place] # Baso # Seg Neutrophils % Seg Neuts % (Manual) 31.0 L Lymphocytes % (Manual) Monocytes % (Manual) Eosinophils % (Manual) Basophils % (Manual) Nucleated RBC % Seg Neutrophils # Seg Neutrophils # Man Lymphocytes # (Manual) Monocytes # (Manual) Eosinophils # (Manual) PT INR Fibrinogen dRVVT Confirm Interp Factor V Activity POC ABG pH POC ABG pCO2 POC ABG pO2 ABG pO2 ABG HCO3 ABG Hemoglobin Oxyhemoglobin Sodium Potassium Chloride Carbon Dioxide BUN 61 H Creatinine 1.6 H Glucose 119 H POC Glucose 158 H Lactic Acid Calcium Phosphorus Magnesium Direct Bilirubin AST ALT Alkaline Phosphatase Lactate Dehydrogenase Troponin T C-Reactive Protein Total Protein Albumin Prealbumin Triglycerides Cholesterol LDL Cholesterol Direct HDL Cholesterol Urine pH Urine WBC (Auto) Urine Creatinine Urine Total Protein Fluid Total Protein Vancomycin Trough Rheumatoid Factor Complement C4 Miscellaneous Test Crossmatch 12/03/16 05:02 WBC RBC Hgb Hct MCV MCH MCHC RDW Plt Count Lymph % (Auto) [place] % (Auto) Lymph # [place] # Baso # Seg Neutrophils % Seg Neuts % (Manual) Lymphocytes % (Manual) Monocytes % (Manual) Eosinophils % (Manual) Basophils % (Manual) Nucleated RBC % Seg Neutrophils # Seg Neutrophils # Man Lymphocytes # (Manual) Monocytes # (Manual) Eosinophils # (Manual) PT INR Fibrinogen dRVVT Confirm Interp Factor V Activity POC ABG pH POC ABG pCO2 POC ABG pO2 ABG pO2 ABG HCO3 ABG Hemoglobin Oxyhemoglobin Sodium Potassium Chloride Carbon Dioxide BUN Creatinine Glucose POC Glucose 146 H Lactic Acid Calcium Phosphorus Magnesium Direct Bilirubin AST ALT Alkaline Phosphatase Lactate Dehydrogenase Troponin T C-Reactive Protein Total Protein Albumin Prealbumin Triglycerides Cholesterol LDL Cholesterol Direct HDL Cholesterol Urine pH Urine WBC (Auto) Urine Creatinine Urine Total Protein Fluid Total Protein Vancomycin Trough Rheumatoid Factor Complement C4 Miscellaneous Test Crossmatch Chest x-ray: report reviewed (Borderline cardiomegaly. Bilateral pleural effusions.), image reviewed Allied health notes reviewed: RT
[2016-12-03] MEDS ORDERED: PROVENTIL IH PRN (16:48)
[2016-12-03] MEDS ORDERED: TPN ADULT IV SCH (20:00)
[2016-12-03] MEDS ORDERED: ATROVENT IH SCH (20:00)
[2016-12-03] MEDS ORDERED: PROVENTIL IH SCH (20:00)
[2016-12-03] MEDS: DUONEB *Not for PRN Use IH SCH (20:51)
[2016-12-04] MEDS: HumuLIN R SUB-Q SCH ×2 (00:15→05:45)
[2016-12-04] MEDS: LOPRESSOR PO SCH ×3 (00:16→18:41)
[2016-12-04] MEDS: DUONEB *Not for PRN Use IH SCH ×4 (01:59→21:27)
[2016-12-04] MEDS: APRESOLINE PO SCH ×3 (05:45→21:49)
[2016-12-04] MEDS: LASIX IV SCH ×2 (05:54→18:41)
[2016-12-04 06:34] LABS: Albumin 1.5 g/dL (3.9-5); Calcium 9.1 mg/dL (8.4-10.2)
[2016-12-04] MEDS: NORVASC PO SCH (09:28)
[2016-12-04] MEDS: HEPARIN SUB-Q SCH ×2 (09:28→21:51)
[2016-12-04] MEDS: PROTONIX FEEDTUBE SCH (09:28)
--- NOTE | 2016-12-04 13:03 | Progress Note ---
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 * Acute hypoxic respiratory failure * Left renal artery stenosis * Anemia * Hypertension * Hyponatremia * Tachycardia Plan: * Continue HD MWF schedule * UF as tolerated * Dose medications for renal function * Avoid potential nephrotoxins * Rate control per cardiology Subjective Date of service: 12/04/16 Principal diagnosis: Acute resp failure on MVS; S/P Acute CVA; Acute Encephalopathy; JUANITA Interval history: No acute events overnight Objective - Vital Signs Vital signs: Vital Signs - 12hr 12/04/16 12/04/16 12/04/16 01:30 02:00 02:10 Temperature Pulse Rate 127 H 115 H Pulse Rate [ 110 H Bilateral Throughout] Pulse Rate [ 110 H From Monitor] Respiratory 20 22 Rate Respiratory 22 Rate [Bilateral Throughout] Blood Pressure 129/62 127/88 O2 Sat by Pulse 98 96 Oximetry O2 Sat by Pulse Oximetry [ Assessment] 12/04/16 12/04/16 12/04/16 02:25 02:30 03:00 Temperature Pulse Rate 112 H 114 H Pulse Rate [ 110 H Bilateral Throughout] Pulse Rate [ From Monitor] Respiratory 18 21 Rate Respiratory 18 Rate [Bilateral Throughout] Blood Pressure 112/67 118/65 O2 Sat by Pulse 100 99 Oximetry O2 Sat by Pulse Oximetry [ Assessment] 12/04/16 12/04/16 12/04/16 03:20 03:30 03:52 Temperature 97.5 F L Pulse Rate 107 H 109 H Pulse Rate [ Bilateral Throughout] Pulse Rate [ From Monitor] Respiratory 22 Rate Respiratory Rate [Bilateral Throughout] Blood Pressure 106/62 109/53 O2 Sat by Pulse 99 99 Oximetry O2 Sat by Pulse Oximetry [ Assessment] 12/04/16 12/04/16 12/04/16 04:00 04:30 04:45 Temperature Pulse Rate 108 H 114 H Pulse Rate [ Bilateral Throughout] Pulse Rate [ 111 H From Monitor] Respiratory 19 22 20 Rate Respiratory Rate [Bilateral Throughout] Blood Pressure 117/64 130/79 O2 Sat by Pulse 99 98 98 Oximetry O2 Sat by Pulse Oximetry [ Assessment] 12/04/16 12/04/16 12/04/16 05:00 05:30 05:45 Temperature Pulse Rate 113 H 110 H 117 H Pulse Rate [ Bilateral Throughout] Pulse Rate [ From Monitor] Respiratory 22 20 Rate Respiratory Rate [Bilateral Throughout] Blood Pressure 147/86 112/62 112/62 O2 Sat by Pulse 98 99 Oximetry O2 Sat by Pulse Oximetry [ Assessment] 12/04/16 12/04/16 12/04/16 06:00 06:30 07:00 Temperature Pulse Rate 112 H 107 H 115 H Pulse Rate [ Bilateral Throughout] Pulse Rate [ From Monitor] Respiratory 16 20 25 H Rate Respiratory Rate [Bilateral Throughout] Blood Pressure 130/75 107/71 134/81 O2 Sat by Pulse 99 99 99 Oximetry O2 Sat by Pulse Oximetry [ Assessment] 12/04/16 12/04/16 12/04/16 07:30 08:00 08:30 Temperature 98.9 F Pulse Rate 114 H 112 H 101 H Pulse Rate [ Bilateral Throughout] Pulse Rate [ 101 H From Monitor] Respiratory 24 21 18 Rate Respiratory Rate [Bilateral Throughout] Blood Pressure 113/77 130/77 109/59 O2 Sat by Pulse 98 98 99 Oximetry O2 Sat by Pulse Oximetry [ Assessment] 12/04/16 12/04/16 12/04/16 09:00 09:28 09:30 Temperature Pulse Rate 110 H 120 H 118 H Pulse Rate [ Bilateral Throughout] Pulse Rate [ From Monitor] Respiratory 20 11 L Rate Respiratory Rate [Bilateral Throughout] Blood Pressure 148/87 155/85 152/90 O2 Sat by Pulse 98 100 Oximetry O2 Sat by Pulse Oximetry [ Assessment] 12/04/16 12/04/16 12/04/16 09:35 09:38 09:48 Temperature Pulse Rate 118 H Pulse Rate [ 118 H 119 H Bilateral Throughout] Pulse Rate [ From Monitor] Respiratory Rate Respiratory 22 20 Rate [Bilateral Throughout] Blood Pressure 152/90 O2 Sat by Pulse 100 Oximetry O2 Sat by Pulse Oximetry [ Assessment] 12/04/16 12/04/16 12/04/16 09:50 10:00 10:15 Temperature Pulse Rate 126 H 122 H Pulse Rate [ Bilateral Throughout] Pulse Rate [ From Monitor] Respiratory 19 Rate Respiratory Rate [Bilateral Throughout] Blood Pressure 153/87 O2 Sat by Pulse 100 Oximetry O2 Sat by Pulse 100 Oximetry [ Assessment] 12/04/16 12/04/16 12/04/16 11:26 12:00 12:07 Temperature 98.8 F Pulse Rate 118 H 101 H Pulse Rate [ Bilateral Throughout] Pulse Rate [ From Monitor] Respiratory Rate Respiratory Rate [Bilateral Throughout] Blood Pressure 134/87 153/94 O2 Sat by Pulse 100 Oximetry O2 Sat by Pulse Oximetry [ Assessment] - General Appearance General appearance: intubated EENT: ATNC Neck: other (trach) Respiratory: Present: Other (coarse BS) Cardiology: regular, S1S2 Gastrointestinal: obese Musculoskeletal: other (+edema) - Lab 12/03/16 04:00 12/04/16 04:00 Most recent lab results ABG pH 7.436 pH Units (7.350-7.450) 11/30/16 23:35 ABG pCO2 38.0 mm Hg 11/30/16 23:35 ABG pO2 83.0 mm Hg (80.0-90.0) 11/30/16 23:35 ABG HCO3 25.0 mmol/L (20.0-26.0) 11/30/16 23:35 ABG O2 Saturation 96.9 % (95.0-99.0) 11/30/16 23:35 Calcium 9.1 mg/dL (8.4-10.2) 12/04/16 04:00 Phosphorus 4.20 mg/dL (2.5-4.5) D 12/04/16 04:00 Magnesium 1.80 mg/dL (1.7-2.3) 12/04/16 04:00 Urine Creatinine 19.7 mg/dL (0.1-20.0) 11/12/16 10:18 Urine Sodium 36 mEq/L 09/16/16 19:19 Urine Total Protein 16 mg/dL (5-11.8) H 09/16/16 19:19
[2016-12-04] MEDS: DURAGESIC TD SCH (13:41)
--- NOTE | 2016-12-04 14:02 | Progress Note ---
Assessment and Plan Assessment and plan: Patient is 46-year-old woman with a history of hypertension, diabetes, asthma, hyperlipidemia, chronic kidney disease and anxiety , who was brought in by family because, she couldn't get her words out, her face was also twisted, she was admitted for acute CVA and accelerated hypertension, she had a hx of poor adherence with her medications, and uncontrolled htn. Patient's SBP on admission was noted be greater than 260. TPA was started but this was discontinued after 5 minutes because her blood pressure became uncontrolled. The TPA was not initiated again because the patient was outside the TPA window. Status post cardiac arrest , 11/21/16 - Received CPR and was resuscitated. Fever - resolved - Now on Vancomycin - s/p R thoracentesis on 11/14, 240cc of serous fluid removed, cx of fluid was negative - Stool negative for C. difficile Severe Sepsis with septic shock - Resolving Surgical wound infection/gram-negative sepsis/candidemia/peritonitis - PEG has been removed and pus is drained from the PEG site - Currently on tube feeding -continue wound care to ostomy sites JUANITA, ESRD - on HD per nephrology Acute CVA with infarct - Neurology input appreciated - CT shows continued evolution of left MCA infarct with slight mass effect and edema, and there is no hemorrhage - PRINCE showed hyperdynamic with ef of 75%, neither clot nor septal defect seen - MRA Brain shows near complete occlusion of M2 and M3 of the left MCA - Repeat CT scan done on 09/11, shows stable findings - carotid doppler negative - Echo shows preserved systolic function but does show some left ventricular diastolic dysfunction - continue asa and statin Persistent vegetative state - This patient's needs placement at SNF - She was denied for LTACH Acute hypoxic respiratory failure requiring MV >96hrs - Status post tracheostomy, was on T piece Nosocomial acquired aspiration pneumonia/sepsis/UTI - Recurrent - On vancomycin Asthma/COPD exacerbation - ON trach, mechanical ventilation Acute Toxic Metabolic encephalopathy. - Multitifactorial, mostly secondary to evolution of CVA Bilateral pleural effusion, s/p right thoracentesis 11/14 - fluid analysis cw transudate Paroxysmal atrial fibrillation with rapid ventricular rate and hyper-coaguable state - failed cardioversion - Continue current medications, Not a candidate for anticoagulation secondary to anemia, thrombocytopenia, and massive CVA Diabetes type 2. Continue sliding-scale regular insulin and Accu-Cheks. Hyperlipidemia. Continue statin Nutrition - continue tube feeds Anemia requiring multiple transfusions/acute blood loss - Has received total 14 units of PRBC this admission. Will continue to transfuse to keep Hemoglobin above 7 - Hemoglobin 7.8 Per the L[facility]er patient's were explained the disease situation yesterday by Dr Lopez and they refused hospice. Have been explained by the hospitalist group and the exercise planner about the poor prognosis of the patient but the family said she may made it and refused. Will talk to them at the end of the week. Disposition. Very poor prognosis. The high probability of a clinically significant, sudden or life threatening deterioration of the [neurologic, CV] system(s) required my full and direct attention, intervention and personal management. The aggregate critical care time was [34] minutes. This time is in addition to time spent performing reported procedures but includes the following: [x] Data Review and interpretation [x] Patient assessment and monitoring of vital signs [x] Documentation [x] Medication orders and management History Interval history: Patient was seen and evaluated this morning, patient is in persistent vegetative state. 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 Hospitalist Physical - Physical exam Narrative exam: Patient is on mechanical ventilation Vital signs as documented. Head exam is unremarkable. No scleral icterus . Neck is without jugular venous distension, thyromegaly, or carotid bruits. Lungs are clear to auscultation. Cardiac exam reveals regular rate and Rhythm. First and second heart sounds normal. No murmurs, rubs or gallops. Abdominal exam reveals abscess draining from the PEG site, and multiple fistulas around the stomach. Extremities are nonedematous and both femoral and pedal pulses are normal. DIGITAL COMMUNITY MANAGER: comatose - Constitutional Vitals: Temp Pulse Resp BP Pulse Ox 98.8 F 107 H 20 135/88 100 12/04/16 12:00 12/04/16 13:42 12/04/16 13:30 12/04/16 13:42 12/04/16 13:30 General appearance: Present: no acute distress Results - Labs CBC & Chem 7: 12/03/16 04:00 12/04/16 04:00 Labs: Laboratory Last Values WBC 20.4 K/mm3 (4.5-11.0) H 12/03/16 04:00 RBC 2.74 M/mm3 (3.65-5.03) L 10/14/17 04:00 Hgb 7.4 gm/dl (10.1-14.3) L 12/03/16 04:00 Hct 23.6 % (30.3-42.9) L 12/03/16 04:00 MCV 86 fl (79-97) 12/03/16 04:00 MCH 27 pg (28-32) L 12/03/16 04:00 MCHC 31 % (30-34) 12/03/16 04:00 RDW 17.1 % (13.2-15.2) H 12/03/16 04:00 Plt Count 335 K/mm3 (140-440) 12/03/16 04:00 Lymph % (Auto) 19.6 % (13.4-35.0) 12/01/16 03:35 [place] % (Auto) 9.8 % (0.0-7.3) H 12/01/16 03:35 Eos % (Auto) 1.5 % (0.0-4.3) 12/01/16 03:35 Baso % (Auto) 0.3 % (0.0-1.8) 12/01/16 03:35 Lymph # 2.4 K/mm3 (1.2-5.4) 12/01/16 03:35 [place] # 1.2 K/mm3 (0.0-0.8) H 12/01/16 03:35 Eos # 0.2 K/mm3 (0.0-0.4) 12/01/16 03:35 Baso # 0.0 K/mm3 (0.0-0.1) 12/01/16 03:35 Add Manual Diff Complete 12/03/16 04:00 Total Counted 100 12/03/16 04:00 Seg Neutrophils % 68.8 % (40.0-70.0) 12/01/16 03:35 Seg Neuts % (Manual) 31.0 % (40.0-70.0) L 12/03/16 04:00 Band Neutrophils % 39.0 % 12/03/16 04:00 Lymphocytes % (Manual) 22.0 % (13.4-35.0) 12/03/16 04:00 Reactive Lymphs % (Man) 0 % 12/03/16 04:00 Monocytes % (Manual) 3.0 % (0.0-7.3) 12/03/16 04:00 Eosinophils % (Manual) 1.0 % (0.0-4.3) 12/03/16 04:00 Basophils % (Manual) 0 % (0.0-1.8) 12/03/16 04:00 Metamyelocytes % 4.0 % 12/03/16 04:00 Myelocytes % 0 % 12/03/16 04:00 Promyelocytes % 0 % 12/03/16 04:00 Blast Cells % 0 % 12/03/16 04:00 Nucleated RBC % Not Reportable 12/03/16 04:00 Seg Neutrophils # 8.4 K/mm3 (1.8-7.7) H 12/01/16 03:35 Seg Neutrophils # Man 6.3 K/mm3 (1.8-7.7) 12/03/16 04:00 Band Neutrophils # 8.0 K/mm3 12/03/16 04:00 Lymphocytes # (Manual) 4.5 K/mm3 (1.2-5.4) 12/03/16 04:00 Abs React Lymphs (Man) 0.0 K/mm3 12/03/16 04:00 Monocytes # (Manual) 0.6 K/mm3 (0.0-0.8) 12/03/16 04:00 Eosinophils # (Manual) 0.2 K/mm3 (0.0-0.4) 12/03/16 04:00 Basophils # (Manual) 0.0 K/mm3 (0.0-0.1) 12/03/16 04:00 Metamyelocytes # 0.8 K/mm3 12/03/16 04:00 Myelocytes # 0.0 K/mm3 12/03/16 04:00 Promyelocytes # 0.0 K/mm3 12/03/16 04:00 Blast Cells # 0.0 K/mm3 12/03/16 04:00 Pathologist Review 09/13/16 04:00 WBC Morphology Not Reportable 12/03/16 04:00 Hypersegmented Neuts Not Reportable 12/03/16 04:00 Hyposegmented Neuts Not Reportable 12/03/16 04:00 Hypogranular Neuts Not Reportable 12/03/16 04:00 Smudge Cells Not Reportable 12/03/16 04:00 Toxic Granulation Not Reportable 12/03/16 04:00 Toxic Vacuolation Not Reportable 12/03/16 04:00 Dohle Bodies Rare 12/03/16 04:00 Pelger-Huet Anomaly Not Reportable 12/03/16 04:00 Jasmina Rods Not Reportable 12/03/16 04:00 Platelet Estimate Appears normal 12/03/16 04:00 Clumped Platelets Not Reportable 12/03/16 04:00 Plt Clumps, EDTA Not Reportable 12/03/16 04:00 Large Platelets Not Reportable 12/03/16 04:00 Giant Platelets Not Reportable 12/03/16 04:00 Platelet Satelliting Not Reportable 12/03/16 04:00 Plt Morphology Comment Not Reportable 12/03/16 04:00 RBC Morphology Not Reportable 12/03/16 04:00 Dimorphic RBCs Not Reportable 12/03/16 04:00 Polychromasia Few 12/03/16 04:00 Hypochromasia 1+ 12/03/16 04:00 Poikilocytosis Not Reportable 12/03/16 04:00 Anisocytosis 1+ 12/03/16 04:00 Microcytosis Not Reportable 12/03/16 04:00 Macrocytosis Not Reportable 12/03/16 04:00 Spherocytes Not Reportable 12/03/16 04:00 Pappenheimer Bodies Not Reportable 12/03/16 04:00 Sickle Cells Not Reportable 12/03/16 04:00 Target Cells Rare 12/03/16 04:00 Tear Drop Cells Not Reportable 12/03/16 04:00 Ovalocytes Not Reportable 12/03/16 04:00 Stomatocytes Rare 12/03/16 04:00 Helmet Cells Not Reportable 12/03/16 04:00 [place] Bodies Not Reportable 12/03/16 04:00 Kelley Rings Not Reportable 12/03/16 04:00 Chuck Cells Not Reportable 12/03/16 04:00 Bite Cells Not Reportable 12/03/16 04:00 Crenated Cell Not Reportable 12/03/16 04:00 Elliptocytes Not Reportable 12/03/16 04:00 Acanthocytes (Spur) Not Reportable 12/03/16 04:00 Rouleaux Not Reportable 12/03/16 04:00 Hemoglobin C Crystals Not Reportable 12/03/16 04:00 Schistocytes Not Reportable 12/03/16 04:00 Malaria parasites Not Reportable 12/03/16 04:00 ESR > 140.0 mm/Hr (0-20) 09/08/16 11:48 Jun Bodies Not Reportable 12/03/16 04:00 Hem Pathologist Commnt No 12/03/16 04:00 PT 16.8 Sec. (12.2-14.9) H 11/17/16 03:20 INR 1.37 (0.87-1.13) H 11/17/16 03:20 APTT 33.0 Sec. (24.2-36.6) 10/09/16 03:45 Thrombin Time 16.8 Sec. (15.1-19.6) 09/03/16 00:10 Fibrinogen 750 mg/dl (211-480) H 09/08/16 11:48 Lupus Anticoagulant see below 09/12/16 09:59 LA PTT Baseline See scanned report 09/12/16 09:59 dRVVT Confirm Interp Positive (Negative) H 09/12/16 09:59 dRVVT Screen 50:50 See scanned report 09/12/16 09:59 dRVVT Mix Interpret See scanned report 09/12/16 09:59 Protein C Antigen 122 % (70-140) 09/08/16 15:35 Free Protein S 97 % normal (50-147) 09/08/16 15:35 Total Protein S 109 % (70-140) 09/08/16 15:35 Antithrombin III Ag 100 % (80-120) 09/08/16 15:35 Heparin Anti-Xa, Unfract Negative (Negative) 09/29/16 13:35 Factor V Activity 182 % (65-150) H 09/08/16 15:35 POC ABG pH 7.487 (7.35-7.45) H 11/25/16 14:12 ABG pH 7.436 pH Units (7.350-7.450) 11/30/16 23:35 POC ABG pCO2 39.0 (35-45) 11/25/16 14:12 ABG pCO2 38.0 mm Hg 11/30/16 23:35 POC ABG pO2 153 (80-105) H 11/25/16 14:12 ABG pO2 83.0 mm Hg (80.0-90.0) 11/30/16 23:35 POC ABG HCO3 29.5 11/25/16 14:12 ABG HCO3 25.0 mmol/L (20.0-26.0) 11/30/16 23:35 POC ABG Total CO2 31 11/25/16 14:12 POC ABG O2 Sat 99 11/25/16 14:12 ABG O2 Saturation 96.9 % (95.0-99.0) 11/30/16 23:35 ABG O2 Content 9.4 (0.0-44) 11/30/16 23:35 POC ABG Base Excess 6 11/25/16 14:12 ABG Base Excess 0.8 mmol/L (-2.0-3.0) 11/30/16 23:35 ABG Hemoglobin 6.9 gm/dl (12.0-16.0) L 11/30/16 23:35 ABG Carboxyhemoglobin 1.5 % (0.0-5.0) 11/30/16 23:35 ABG Methemoglobin 0.5 % (0.0-1.5) 11/30/16 23:35 Oxyhemoglobin 95.0 % (95.0-99.0) 11/30/16 23:35 FiO2 28 % 11/30/16 23:35 Sodium 137 mmol/L (137-145) 12/04/16 04:00 Potassium 3.6 mmol/L (3.6-5.0) 12/04/16 04:00 Chloride 98.3 mmol/L (98-107) 12/04/16 04:00 Carbon Dioxide 24 mmol/L (22-30) 12/04/16 04:00 Anion Gap 18 mmol/L 12/04/16 04:00 BUN 76 mg/dL (7-17) H 12/04/16 04:00 Creatinine 1.6 mg/dL (0.7-1.2) H 12/04/16 04:00 Estimated GFR 42 ml/min 12/04/16 04:00 BUN/Creatinine Ratio 48 % 12/04/16 04:00 Glucose 99 mg/dL (65-100) 12/04/16 04:00 POC Glucose 136 (70-105) H 12/04/16 04:45 Osmolality 351 Mosm/kg 09/16/16 11:47 Lactic Acid 4.50 mmol/L (0.7-2.0) H* 09/28/16 07:25 Calcium 9.1 mg/dL (8.4-10.2) 12/04/16 04:00 Phosphorus 4.20 mg/dL (2.5-4.5) D 12/04/16 04:00 Magnesium 1.80 mg/dL (1.7-2.3) 12/04/16 04:00 Total Bilirubin 0.20 mg/dL (0.1-1.2) 12/04/16 04:00 Direct Bilirubin 0.3 mg/dL (0-0.2) H 10/10/16 05:00 Indirect Bilirubin 0.1 mg/dL 10/10/16 05:00 AST 29 units/L (5-40) 12/04/16 04:00 ALT 43 units/L (7-56) 12/04/16 04:00 Alkaline Phosphatase 155 units/L (35-129) H 12/04/16 04:00 Ammonia 27.0 umol/L (25-60) 09/07/16 08:37 Lactate Dehydrogenase 196 units/L (91-180) H 11/11/16 06:59 Total Creatine Kinase 121 units/L (30-135) 09/29/16 20:12 CK-MB (CK-2) < 1.0 ng/mL (0.0-4.0) 09/29/16 20:12 CK-MB (CK-2) Rel Index 0.8 (0-4) 09/29/16 20:12 Troponin T 0.204 ng/mL (0.00-0.029) H* 09/29/16 20:12 C-Reactive Protein 11.40 mg/dL (0.00-1.30) H 11/05/16 13:25 Total Protein 5.5 g/dL (6.3-8.2) L 12/04/16 04:00 Albumin 1.5 g/dL (3.9-5) L 12/04/16 04:00 Albumin/Globulin Ratio 0.4 % 12/04/16 04:00 Prealbumin 0.180 g/L (0.200-0.400) L 11/06/16 06:25 Triglycerides 137 mg/dL (2-149) 09/29/16 20:12 Cholesterol 31 mg/dL (50-199) L 09/29/16 20:12 LDL Cholesterol Direct 4 mg/dL (50-130) L 09/29/16 20:12 HDL Cholesterol 3 mg/dL (40-59) L 09/29/16 20:12 Cholesterol/HDL Ratio 10.33 % 09/29/16 20:12 Angiotensin Convert Enz See scanned report 09/08/16 11:48 Renin 0.99 ng/mL/h (0.25-5.82) 10/07/16 10:56 Aldosterone <1 ng/dL () 10/07/16 10:56 Aldosterone/Renin Dir see below 10/07/16 10:56 Serotonin Release Assay See scanned report 09/29/16 13:35 TSH 1.010 mlU/mL (0.270-4.200) 09/07/16 08:37 HCG, Qual Negative (Negative) 09/03/16 00:10 Urine Color Yellow (Yellow) 11/05/16 13:09 Urine Turbidity Clear (Clear) 11/05/16 13:09 Urine pH 9.0 (5.0-7.0) H 11/05/16 13:09 Ur Specific [place] 1.011 (1.003-1.030) 11/05/16 13:09 Urine Protein 100 mg/dl mg/dL (Negative) 11/05/16 13:09 Urine Glucose (UA) Neg mg/dL (Negative) 11/05/16 13:09 Urine Ketones Neg mg/dL (Negative) 11/05/16 13:09 Urine Blood Neg (Negative) 11/05/16 13:09 Urine Nitrite Neg (Negative) 11/05/16 13:09 Urine Bilirubin Neg (Negative) 11/05/16 13:09 Urine Urobilinogen < 2.0 mg/dL (<2.0) 11/05/16 13:09 Ur Leukocyte Esterase Neg (Negative) 11/05/16 13:09 Urine WBC (Auto) 4.0 /HPF (0.0-6.0) 11/05/16 13:09 Urine RBC (Auto) 1.0 /HPF (0.0-6.0) 11/05/16 13:09 U Epithel Cells (Auto) 1.0 /HPF (0-13.0) 10/07/16 18:30 Urine Bacteria (Auto) 4+ /HPF (Negative) 11/05/16 13:09 Urine WBC Clumps 2+ /HPF 09/07/16 02:47 Hyaline Casts 4 /LPF 09/07/16 02:47 Urine Mucus Few /HPF 10/07/16 18:30 Urine Yeast (Budding) 3+ /HPF 10/07/16 18:30 Urine Eosinophils None seen (None Seen) 09/07/16 16:00 Urine Total Volume 950 11/12/16 10:18 Urine Creatinine 19.7 mg/dL (0.1-20.0) 11/12/16 10:18 Height (in) 65.0 inches 11/12/16 10:18 Weight (lb) 181.0 lbs 11/12/16 10:18 Creatinine Clearance 5 11/12/16 10:18 Urine Sodium 36 mEq/L 09/16/16 19:19 Urine Total Protein 16 mg/dL (5-11.8) H 09/16/16 19:19 Fluid Total Protein < 3.0 (15.0-45.0) L 11/10/16 14:20 Fluid LDH 123 11/10/16 14:20 Vancomycin Trough 2.3 ug/mL (5.0-20.0) L 09/21/16 13:00 Random Vancomycin 16.5 ug/mL (0-40.0) 11/28/16 09:45 Urine Opiates Screen Presumptive negative 09/03/16 15:11 Urine Methadone Screen Presumptive positive 09/03/16 15:11 Ur Barbiturates Screen Presumptive positive 09/03/16 15:11 Ur Phencyclidine Scrn Presumptive negative 09/03/16 15:11 Ur Amphetamines Screen Presumptive negative 09/03/16 15:11 U Benzodiazepines Scrn Presumptive negative 09/03/16 15:11 Urine Cocaine Screen Presumptive negative 09/03/16 15:11 U Marijuana (THC) Screen Presumptive positive 09/03/16 15:11 Drugs of Abuse Note Disclamer 09/03/16 15:11 Rheumatoid Factor 24 IU/ml (0-13) H 09/08/16 11:48 SAHIL Screen Negative (Negative) 09/07/16 09:20 Proteinase 3 (PR3) Ab <1.0 AI (<1.0) 09/07/16 09:20 Myeloperoxidase Ab <1.0 AI (<1.0) 09/07/16 09:20 Sjogren's Antibody <1.0 AI (<1.0) 09/08/16 15:35 Scl-70 Scleroderma Ab <1.0 AI (<1.0) 09/08/16 15:35 Centromere B Antibody <1.0 AI (<1.0) 09/08/16 12:02 Heparin-induced Plt Ab Negative (Negative) 09/29/16 13:35 UF Heparin High Dose 11 % Release 09/29/16 13:35 SUDHIR UFH Low Dose 0.1 6 % Release 09/29/16 13:35 SUDHIR UFH Low Dose 0.5 8 % Release 09/29/16 13:35 Cardiolipid IgG Ab <14 GPL (<=14) 09/12/16 09:59 Cardiolipid IgA Ab <11 APL (<=11) 09/12/16 09:59 Cardiolipid IgM Ab <12 MPL (<=12) 09/12/16 09:59 Complement C3 148 mg/dL (90-180) 09/07/16 09:20 Complement C4 58 mg/dL (16-47) H 09/07/16 09:20 RPR Nonreactive (Nonreactive) 09/08/16 11:48 Hepatitis A IgM Ab Non-reactive (NonReactive) 09/24/16 14:40 Hep Bs Antigen Non-reactive (Negative) 09/24/16 14:40 Hep B Core IgM Ab Non-reactive (NonReactive) 09/24/16 14:40 Hepatitis C Antibody Non-reactive (NonReactive) 09/24/16 14:40 HIV 1&2 Antibody Rapid Non react (Non React) 09/08/16 11:48 HIV P24 Antigen Non react (Non React) 09/08/16 11:48 Miscellaneous Test Flexitest 1 H 11/05/16 13:25 Blood Type A POSITIVE 11/24/16 11:20 Antibody Screen TNR 11/24/16 11:20 DELORIS Antibody Screen Negative 11/24/16 11:20 Crossmatch See Detail 11/24/16 11:20
--- NOTE | 2016-12-04 14:04 | Progress Note ---
Assessment and Plan - Patient Problems (1) Dislodged gastrostomy tube Current Visit: Yes Status: Acute Plan to address problem: added cranberry juice to dobhoff to eval drainage. May consider methylene blue to eval for viscous leak/ fistula but doubt there is one. continue supportive care. Monitor wbc. Subjective Date of service: 12/04/16 Patient Reports: Positive: afebrile, other (no acute events. ) Objective Vital Signs - 12hr 12/04/16 12/04/16 12/04/16 02:10 02:25 02:30 Temperature Pulse Rate 112 H Pulse Rate [ 110 H 110 H Bilateral Throughout] Pulse Rate [ From Monitor] Respiratory 18 Rate Respiratory 22 18 Rate [Bilateral Throughout] Blood Pressure 112/67 O2 Sat by Pulse 100 Oximetry O2 Sat by Pulse Oximetry [ Assessment] 12/04/16 12/04/16 12/04/16 03:00 03:20 03:30 Temperature Pulse Rate 114 H 107 H 109 H Pulse Rate [ Bilateral Throughout] Pulse Rate [ From Monitor] Respiratory 21 22 Rate Respiratory Rate [Bilateral Throughout] Blood Pressure 118/65 106/62 109/53 O2 Sat by Pulse 99 99 99 Oximetry O2 Sat by Pulse Oximetry [ Assessment] 12/04/16 12/04/16 12/04/16 03:52 04:00 04:30 Temperature 97.5 F L Pulse Rate 108 H 114 H Pulse Rate [ Bilateral Throughout] Pulse Rate [ From Monitor] Respiratory 19 22 Rate Respiratory Rate [Bilateral Throughout] Blood Pressure 117/64 130/79 O2 Sat by Pulse 99 98 Oximetry O2 Sat by Pulse Oximetry [ Assessment] 12/04/16 12/04/16 12/04/16 04:45 05:00 05:30 Temperature Pulse Rate 113 H 110 H Pulse Rate [ Bilateral Throughout] Pulse Rate [ 111 H From Monitor] Respiratory 20 22 20 Rate Respiratory Rate [Bilateral Throughout] Blood Pressure 147/86 112/62 O2 Sat by Pulse 98 98 99 Oximetry O2 Sat by Pulse Oximetry [ Assessment] 12/04/16 12/04/16 12/04/16 05:45 06:00 06:30 Temperature Pulse Rate 117 H 112 H 107 H Pulse Rate [ Bilateral Throughout] Pulse Rate [ From Monitor] Respiratory 16 20 Rate Respiratory Rate [Bilateral Throughout] Blood Pressure 112/62 130/75 107/71 O2 Sat by Pulse 99 99 Oximetry O2 Sat by Pulse Oximetry [ Assessment] 12/04/16 12/04/16 12/04/16 07:00 07:30 08:00 Temperature 98.9 F Pulse Rate 115 H 114 H 112 H Pulse Rate [ Bilateral Throughout] Pulse Rate [ From Monitor] Respiratory 25 H 24 21 Rate Respiratory Rate [Bilateral Throughout] Blood Pressure 134/81 113/77 130/77 O2 Sat by Pulse 99 98 98 Oximetry O2 Sat by Pulse Oximetry [ Assessment] 12/04/16 12/04/16 12/04/16 08:30 09:00 09:28 Temperature Pulse Rate 101 H 110 H 120 H Pulse Rate [ Bilateral Throughout] Pulse Rate [ 101 H From Monitor] Respiratory 18 20 Rate Respiratory Rate [Bilateral Throughout] Blood Pressure 109/59 148/87 155/85 O2 Sat by Pulse 99 98 Oximetry O2 Sat by Pulse Oximetry [ Assessment] 12/04/16 12/04/16 12/04/16 09:30 09:35 09:38 Temperature Pulse Rate 118 H 118 H Pulse Rate [ 118 H Bilateral Throughout] Pulse Rate [ From Monitor] Respiratory 11 L Rate Respiratory 22 Rate [Bilateral Throughout] Blood Pressure 152/90 152/90 O2 Sat by Pulse 100 100 Oximetry O2 Sat by Pulse Oximetry [ Assessment] 12/04/16 12/04/16 12/04/16 09:48 09:50 10:00 Temperature Pulse Rate 126 H Pulse Rate [ 119 H Bilateral Throughout] Pulse Rate [ From Monitor] Respiratory 19 Rate Respiratory 20 Rate [Bilateral Throughout] Blood Pressure 153/87 O2 Sat by Pulse 100 Oximetry O2 Sat by Pulse 100 Oximetry [ Assessment] 12/04/16 12/04/16 12/04/16 10:15 10:30 11:00 Temperature Pulse Rate 122 H 124 H 122 H Pulse Rate [ Bilateral Throughout] Pulse Rate [ From Monitor] Respiratory 19 16 Rate Respiratory Rate [Bilateral Throughout] Blood Pressure 151/86 128/80 O2 Sat by Pulse 100 100 Oximetry O2 Sat by Pulse Oximetry [ Assessment] 12/04/16 12/04/16 12/04/16 11:26 11:30 12:00 Temperature 98.8 F Pulse Rate 118 H 119 H 105 H Pulse Rate [ Bilateral Throughout] Pulse Rate [ From Monitor] Respiratory 22 16 Rate Respiratory Rate [Bilateral Throughout] Blood Pressure 134/87 132/86 153/94 O2 Sat by Pulse 100 100 Oximetry O2 Sat by Pulse Oximetry [ Assessment] 12/04/16 12/04/16 12/04/16 12:07 12:30 13:00 Temperature Pulse Rate 101 H 105 H 102 H Pulse Rate [ Bilateral Throughout] Pulse Rate [ From Monitor] Respiratory 14 17 Rate Respiratory Rate [Bilateral Throughout] Blood Pressure 153/94 126/84 144/86 O2 Sat by Pulse 100 99 100 Oximetry O2 Sat by Pulse Oximetry [ Assessment] 12/04/16 12/04/16 13:30 13:42 Temperature Pulse Rate 104 H 107 H Pulse Rate [ Bilateral Throughout] Pulse Rate [ From Monitor] Respiratory 20 Rate Respiratory Rate [Bilateral Throughout] Blood Pressure 135/88 135/88 O2 Sat by Pulse 100 Oximetry O2 Sat by Pulse Oximetry [ Assessment] - General physical appearance no distress - Respiratory normal respiratory effort (on vent 30% fio2) - Abdomen soft, not tender, wound (copious drainage ?purulent) - Labs 12/03/16 04:00 12/04/16 04:00 Diabetes panel 12/04/16 Range/Units 04:00 Sodium 137 (137-145) mmol/L Potassium 3.6 (3.6-5.0) mmol/L Chloride 98.3 (98-107) mmol/L Carbon Dioxide 24 (22-30) mmol/L BUN 76 H (7-17) mg/dL Creatinine 1.6 H (0.7-1.2) mg/dL Glucose 99 (65-100) mg/dL Calcium 9.1 (8.4-10.2) mg/dL AST 29 (5-40) units/L ALT 43 (7-56) units/L Alkaline Phosphatase 155 H (35-129) units/L Total Protein 5.5 L (6.3-8.2) g/dL Albumin 1.5 L (3.9-5) g/dL Calcium panel 12/04/16 Range/Units 04:00 Calcium 9.1 (8.4-10.2) mg/dL Phosphorus 4.20 D (2.5-4.5) mg/dL Albumin 1.5 L (3.9-5) g/dL Pituitary panel 12/04/16 Range/Units 04:00 Sodium 137 (137-145) mmol/L Potassium 3.6 (3.6-5.0) mmol/L Chloride 98.3 (98-107) mmol/L Carbon Dioxide 24 (22-30) mmol/L BUN 76 H (7-17) mg/dL Creatinine 1.6 H (0.7-1.2) mg/dL Glucose 99 (65-100) mg/dL Calcium 9.1 (8.4-10.2) mg/dL Adrenal panel 12/04/16 Range/Units 04:00 Sodium 137 (137-145) mmol/L Potassium 3.6 (3.6-5.0) mmol/L Chloride 98.3 (98-107) mmol/L Carbon Dioxide 24 (22-30) mmol/L BUN 76 H (7-17) mg/dL Creatinine 1.6 H (0.7-1.2) mg/dL Glucose 99 (65-100) mg/dL Calcium 9.1 (8.4-10.2) mg/dL Total Bilirubin 0.20 (0.1-1.2) mg/dL AST 29 (5-40) units/L ALT 43 (7-56) units/L Alkaline Phosphatase 155 H (35-129) units/L Total Protein 5.5 L (6.3-8.2) g/dL Albumin 1.5 L (3.9-5) g/dL
--- NOTE | 2016-12-04 15:36 | Progress Note ---
Assessment and Plan Patient awake Patient not responding to verbal stimuli. Not following any commands.Resting on mechanical ventilation , assist control rate 12 , tidal volume 500 , FIO2 30% PEEP 5 and O2 saturation 100%.However patient failed spontaneous breathing trial this morning. I spent critical care time approximately 40 minutes in examining the patient, talking to the nursing and respiratory therapy staff.Reviewing the lab results and review the plan of treatment. - Patient Problems (1) Acute respiratory failure with hypoxia Current Visit: Yes Status: Acute Plan to address problem: Patient is on mechanical ventilation. Assist control rate 12, tidal volume 500, FIO2 30%, PEEP 5 . O2 saturation 100%. S/P tracheostomy. Albuterol/atrovent aerosol treatments q 6 hours. Continue S/C Heparin Continue Protonix. Chest xray and ABGs in AM Continue spontaneous breathing trials as tolerated. (2) Aspiration pneumonia Current Visit: Yes Status: Acute Qualifiers: Aspiration pneumonia type: A Laterality: L Lung location: L Plan to address problem: Patient is on vancomycin. Antibiotics as per infectious diseases. (3) Atrial fibrillation Current Visit: Yes Status: Acute Qualifiers: Atrial fibrillation type: A Plan to address problem: Management as per primary care and cardiology. (4) JUANITA (acute kidney injury) Current Visit: Yes Status: Acute Plan to address problem: Management as per nephrology. (5) Acute CVA (cerebrovascular accident) Current Visit: Yes Status: Acute Plan to address problem: Management as per primary care and neurology Subjective Date of service: 12/04/16 Principal diagnosis: Acute resp failure on MVS; S/P Acute CVA; Acute Encephalopathy; JUANITA Interval history: Patient awake Patient not responding to verbal stimuli. Not following any commands.Resting on mechanical ventilation , assist control rate 12 , tidal volume 500 , FIO2 30% PEEP 5 and O2 saturation 100%.However patient failed spontaneous breathing trial this morning. Objective Vital Signs - 12hr 12/04/16 12/04/16 12/04/16 03:52 04:00 04:30 Temperature 97.5 F L Pulse Rate 108 H 114 H Pulse Rate [ Bilateral Throughout] Pulse Rate [ From Monitor] Respiratory 19 22 Rate Respiratory Rate [Bilateral Throughout] Blood Pressure 117/64 130/79 O2 Sat by Pulse 99 98 Oximetry O2 Sat by Pulse Oximetry [ Assessment] 12/04/16 12/04/16 12/04/16 04:45 05:00 05:30 Temperature Pulse Rate 113 H 110 H Pulse Rate [ Bilateral Throughout] Pulse Rate [ 111 H From Monitor] Respiratory 20 22 20 Rate Respiratory Rate [Bilateral Throughout] Blood Pressure 147/86 112/62 O2 Sat by Pulse 98 98 99 Oximetry O2 Sat by Pulse Oximetry [ Assessment] 12/04/16 12/04/16 12/04/16 05:45 06:00 06:30 Temperature Pulse Rate 117 H 112 H 107 H Pulse Rate [ Bilateral Throughout] Pulse Rate [ From Monitor] Respiratory 16 20 Rate Respiratory Rate [Bilateral Throughout] Blood Pressure 112/62 130/75 107/71 O2 Sat by Pulse 99 99 Oximetry O2 Sat by Pulse Oximetry [ Assessment] 12/04/16 12/04/16 12/04/16 07:00 07:30 08:00 Temperature 98.9 F Pulse Rate 115 H 114 H 112 H Pulse Rate [ Bilateral Throughout] Pulse Rate [ From Monitor] Respiratory 25 H 24 21 Rate Respiratory Rate [Bilateral Throughout] Blood Pressure 134/81 113/77 130/77 O2 Sat by Pulse 99 98 98 Oximetry O2 Sat by Pulse Oximetry [ Assessment] 12/04/16 12/04/16 12/04/16 08:30 09:00 09:28 Temperature Pulse Rate 101 H 110 H 120 H Pulse Rate [ Bilateral Throughout] Pulse Rate [ 101 H From Monitor] Respiratory 18 20 Rate Respiratory Rate [Bilateral Throughout] Blood Pressure 109/59 148/87 155/85 O2 Sat by Pulse 99 98 Oximetry O2 Sat by Pulse Oximetry [ Assessment] 12/04/16 12/04/16 12/04/16 09:30 09:35 09:38 Temperature Pulse Rate 118 H 118 H Pulse Rate [ 118 H Bilateral Throughout] Pulse Rate [ From Monitor] Respiratory 11 L Rate Respiratory 22 Rate [Bilateral Throughout] Blood Pressure 152/90 152/90 O2 Sat by Pulse 100 100 Oximetry O2 Sat by Pulse Oximetry [ Assessment] 12/04/16 12/04/16 12/04/16 09:48 09:50 10:00 Temperature Pulse Rate 126 H Pulse Rate [ 119 H Bilateral Throughout] Pulse Rate [ From Monitor] Respiratory 19 Rate Respiratory 20 Rate [Bilateral Throughout] Blood Pressure 153/87 O2 Sat by Pulse 100 Oximetry O2 Sat by Pulse 100 Oximetry [ Assessment] 12/04/16 12/04/16 12/04/16 10:15 10:30 11:00 Temperature Pulse Rate 122 H 124 H 122 H Pulse Rate [ Bilateral Throughout] Pulse Rate [ From Monitor] Respiratory 19 16 Rate Respiratory Rate [Bilateral Throughout] Blood Pressure 151/86 128/80 O2 Sat by Pulse 100 100 Oximetry O2 Sat by Pulse Oximetry [ Assessment] 12/04/16 12/04/16 12/04/16 11:26 11:30 12:00 Temperature 98.8 F Pulse Rate 118 H 119 H 105 H Pulse Rate [ Bilateral Throughout] Pulse Rate [ From Monitor] Respiratory 22 16 Rate Respiratory Rate [Bilateral Throughout] Blood Pressure 134/87 132/86 153/94 O2 Sat by Pulse 100 100 Oximetry O2 Sat by Pulse Oximetry [ Assessment] 12/04/16 12/04/16 12/04/16 12:07 12:30 13:00 Temperature Pulse Rate 101 H 105 H 102 H Pulse Rate [ Bilateral Throughout] Pulse Rate [ 97 H From Monitor] Respiratory 14 15 Rate Respiratory Rate [Bilateral Throughout] Blood Pressure 153/94 126/84 144/86 O2 Sat by Pulse 100 99 100 Oximetry O2 Sat by Pulse Oximetry [ Assessment] 12/04/16 12/04/16 12/04/16 13:30 13:42 14:00 Temperature Pulse Rate 104 H 107 H 105 H Pulse Rate [ Bilateral Throughout] Pulse Rate [ From Monitor] Respiratory 20 22 Rate Respiratory Rate [Bilateral Throughout] Blood Pressure 135/88 135/88 141/88 O2 Sat by Pulse 100 100 Oximetry O2 Sat by Pulse Oximetry [ Assessment] 12/04/16 12/04/16 14:34 14:42 Temperature Pulse Rate Pulse Rate [ 108 H 113 H Bilateral Throughout] Pulse Rate [ From Monitor] Respiratory Rate Respiratory 20 22 Rate [Bilateral Throughout] Blood Pressure O2 Sat by Pulse Oximetry O2 Sat by Pulse Oximetry [ Assessment] Constitutional: no acute distress, other (eyes open; tracking movements) Eyes: non-icteric, other (tracheostomy tube in midline of neck) ENT: oropharynx moist Neck: supple, no lymphadenopathy Effort: mildly labored Ascultation: Bilateral: diminished breath sounds (bases), rales, rhonchi (and referred upper airway sounds) Percussion: Bilateral: dull (bases) Cardiovascular: regular rate and rhythm, other (no rubs / murmurs) Gastrointestinal: hypoactive bowel sounds, soft, non-tender, non-distended, other (RLQ stomas with colostomy bags) Integumentary: other (healing back burn-like injury; poor turgor) Extremities: no cyanosis, no edema, pulses normal, no ischemia or petechiae Neurologic: pupils equal and round, other (encephalopathic) Psychiatric: other (unable to assess) CBC and BMP: 12/03/16 04:00 12/04/16 04:00 ABG, PT/INR, D-dimer: ABG POC ABG pH 7.487 (7.35-7.45) H 11/25/16 14:12 ABG pH 7.436 pH Units (7.350-7.450) 11/30/16 23:35 POC ABG pCO2 39.0 (35-45) 11/25/16 14:12 ABG pCO2 38.0 mm Hg 11/30/16 23:35 POC ABG pO2 153 (80-105) H 11/25/16 14:12 ABG pO2 83.0 mm Hg (80.0-90.0) 11/30/16 23:35 POC ABG HCO3 29.5 11/25/16 14:12 POC ABG Total CO2 31 11/25/16 14:12 POC ABG O2 Sat 99 11/25/16 14:12 ABG O2 Saturation 96.9 % (95.0-99.0) 11/30/16 23:35 PT/INR, D-dimer PT 16.8 Sec. (12.2-14.9) H 11/17/16 03:20 INR 1.37 (0.87-1.13) H 11/17/16 03:20 Abnormal lab findings: Abnormal Labs 09/03/16 09/03/16 09/03/16 12:12 15:07 16:20 WBC RBC Hgb Hct MCV MCH MCHC RDW Plt Count Lymph % (Auto) [place] % (Auto) Lymph # [place] # Baso # Seg Neutrophils % Seg Neuts % (Manual) Lymphocytes % (Manual) Monocytes % (Manual) Eosinophils % (Manual) Basophils % (Manual) Nucleated RBC % Seg Neutrophils # Seg Neutrophils # Man Lymphocytes # (Manual) Monocytes # (Manual) Eosinophils # (Manual) PT INR Fibrinogen dRVVT Confirm Interp Factor V Activity POC ABG pH 7.452 H POC ABG pCO2 POC ABG pO2 ABG pO2 ABG HCO3 ABG Hemoglobin Oxyhemoglobin Sodium Potassium Chloride Carbon Dioxide BUN Creatinine Glucose POC Glucose 178 H Lactic Acid Calcium Phosphorus 2.20 L Magnesium 1.60 L Direct Bilirubin AST ALT Alkaline Phosphatase Lactate Dehydrogenase Troponin T C-Reactive Protein Total Protein Albumin Prealbumin Triglycerides Cholesterol LDL Cholesterol Direct HDL Cholesterol Urine pH Urine WBC (Auto) Urine Creatinine Urine Total Protein Fluid Total Protein Vancomycin Trough Rheumatoid Factor Complement C4 Miscellaneous Test Crossmatch 09/03/16 09/03/16 09/03/16 17:57 17:58 23:50 WBC RBC Hgb Hct MCV MCH MCHC RDW Plt Count Lymph % (Auto) [place] % (Auto) Lymph # [place] # Baso # Seg Neutrophils % Seg Neuts % (Manual) Lymphocytes % (Manual) Monocytes % (Manual) Eosinophils % (Manual) Basophils % (Manual) Nucleated RBC % Seg Neutrophils # Seg Neutrophils # Man Lymphocytes # (Manual) Monocytes # (Manual) Eosinophils # (Manual) PT INR Fibrinogen dRVVT Confirm Interp Factor V Activity POC ABG pH POC ABG pCO2 POC ABG pO2 ABG pO2 ABG HCO3 ABG Hemoglobin Oxyhemoglobin Sodium Potassium Chloride Carbon Dioxide BUN Creatinine Glucose POC Glucose 162 H 145 H Lactic Acid Calcium Phosphorus 2.30 L Magnesium Direct Bilirubin AST ALT Alkaline Phosphatase Lactate Dehydrogenase Troponin T C-Reactive Protein Total Protein Albumin Prealbumin Triglycerides Cholesterol LDL Cholesterol Direct HDL Cholesterol Urine pH Urine WBC (Auto) Urine Creatinine Urine Total Protein Fluid Total Protein Vancomycin Trough Rheumatoid Factor Complement C4 Miscellaneous Test Crossmatch 09/04/16 09/04/16 09/04/16 03:31 03:31 05:42 WBC RBC Hgb 9.7 L D Hct MCV 72 L MCH 23 L MCHC RDW 17.5 H Plt Count Lymph % (Auto) 11.1 L [place] % (Auto) Lymph # [place] # Baso # Seg Neutrophils % 84.3 H Seg Neuts % (Manual) Lymphocytes % (Manual) Monocytes % (Manual) Eosinophils % (Manual) Basophils % (Manual) Nucleated RBC % Seg Neutrophils # 8.9 H Seg Neutrophils # Man Lymphocytes # (Manual) Monocytes # (Manual) Eosinophils # (Manual) PT INR Fibrinogen dRVVT Confirm Interp Factor V Activity POC ABG pH POC ABG pCO2 POC ABG pO2 ABG pO2 ABG HCO3 ABG Hemoglobin Oxyhemoglobin Sodium 135 L Potassium 2.9 L* Chloride 97.2 L Carbon Dioxide 19 L BUN Creatinine 1.7 H Glucose 170 H POC Glucose 152 H Lactic Acid Calcium Phosphorus Magnesium Direct Bilirubin AST ALT Alkaline Phosphatase Lactate Dehydrogenase Troponin T C-Reactive Protein Total Protein Albumin Prealbumin Triglycerides 160 H Cholesterol LDL Cholesterol Direct HDL Cholesterol 31 L Urine pH Urine WBC (Auto) Urine Creatinine Urine Total Protein Fluid Total Protein Vancomycin Trough Rheumatoid Factor Complement C4 Miscellaneous Test Crossmatch 09/04/16 09/04/16 09/04/16 11:34 17:46 23:29 WBC RBC Hgb Hct MCV MCH MCHC RDW Plt Count Lymph % (Auto) [place] % (Auto) Lymph # [place] # Baso # Seg Neutrophils % Seg Neuts % (Manual) Lymphocytes % (Manual) Monocytes % (Manual) Eosinophils % (Manual) Basophils % (Manual) Nucleated RBC % Seg Neutrophils # Seg Neutrophils # Man Lymphocytes # (Manual) Monocytes # (Manual) Eosinophils # (Manual) PT INR Fibrinogen dRVVT Confirm Interp Factor V Activity POC ABG pH POC ABG pCO2 POC ABG pO2 ABG pO2 ABG HCO3 ABG Hemoglobin Oxyhemoglobin Sodium Potassium Chloride Carbon Dioxide BUN Creatinine Glucose POC Glucose 165 H 210 H 139 H Lactic Acid Calcium Phosphorus Magnesium Direct Bilirubin AST ALT Alkaline Phosphatase Lactate Dehydrogenase Troponin T C-Reactive Protein Total Protein Albumin Prealbumin Triglycerides Cholesterol LDL Cholesterol Direct HDL Cholesterol Urine pH Urine WBC (Auto) Urine Creatinine Urine Total Protein Fluid Total Protein Vancomycin Trough Rheumatoid Factor Complement C4 Miscellaneous Test Crossmatch 09/05/16 09/05/16 09/05/16 04:05 04:05 05:38 WBC RBC Hgb Hct MCV 76 L D MCH 23 L MCHC RDW 17.8 H Plt Count Lymph % (Auto) [place] % (Auto) Lymph # [place] # Baso # Seg Neutrophils % Seg Neuts % (Manual) Lymphocytes % (Manual) Monocytes % (Manual) Eosinophils % (Manual) Basophils % (Manual) Nucleated RBC % Seg Neutrophils # Seg Neutrophils # Man Lymphocytes # (Manual) Monocytes # (Manual) Eosinophils # (Manual) PT INR Fibrinogen dRVVT Confirm Interp Factor V Activity POC ABG pH POC ABG pCO2 POC ABG pO2 ABG pO2 ABG HCO3 ABG Hemoglobin Oxyhemoglobin Sodium 134 L Potassium Chloride Carbon Dioxide 18 L BUN Creatinine 1.8 H Glucose 192 H POC Glucose 175 H Lactic Acid Calcium Phosphorus Magnesium Direct Bilirubin AST ALT Alkaline Phosphatase Lactate Dehydrogenase Troponin T C-Reactive Protein Total Protein Albumin Prealbumin Triglycerides Cholesterol LDL Cholesterol Direct HDL Cholesterol Urine pH Urine WBC (Auto) Urine Creatinine Urine Total Protein Fluid Total Protein Vancomycin Trough Rheumatoid Factor Complement C4 Miscellaneous Test Crossmatch 09/05/16 09/05/16 09/05/16 11:38 17:48 23:22 WBC RBC Hgb Hct MCV MCH MCHC RDW Plt Count Lymph % (Auto) [place] % (Auto) Lymph # [place] # Baso # Seg Neutrophils % Seg Neuts % (Manual) Lymphocytes % (Manual) Monocytes % (Manual) Eosinophils % (Manual) Basophils % (Manual) Nucleated RBC % Seg Neutrophils # Seg Neutrophils # Man Lymphocytes # (Manual) Monocytes # (Manual) Eosinophils # (Manual) PT INR Fibrinogen dRVVT Confirm Interp Factor V Activity POC ABG pH POC ABG pCO2 POC ABG pO2 ABG pO2 ABG HCO3 ABG Hemoglobin Oxyhemoglobin Sodium Potassium Chloride Carbon Dioxide BUN Creatinine Glucose POC Glucose 164 H 186 H 195 H Lactic Acid Calcium Phosphorus Magnesium Direct Bilirubin AST ALT Alkaline Phosphatase Lactate Dehydrogenase Troponin T C-Reactive Protein Total Protein Albumin Prealbumin Triglycerides Cholesterol LDL Cholesterol Direct HDL Cholesterol Urine pH Urine WBC (Auto) Urine Creatinine Urine Total Protein Fluid Total Protein Vancomycin Trough Rheumatoid Factor Complement C4 Miscellaneous Test Crossmatch 09/06/16 09/06/16 09/06/16 04:12 05:59 07:32 WBC RBC Hgb Hct MCV MCH MCHC RDW Plt Count Lymph % (Auto) [place] % (Auto) Lymph # [place] # Baso # Seg Neutrophils % Seg Neuts % (Manual) Lymphocytes % (Manual) Monocytes % (Manual) Eosinophils % (Manual) Basophils % (Manual) Nucleated RBC % Seg Neutrophils # Seg Neutrophils # Man Lymphocytes # (Manual) Monocytes # (Manual) Eosinophils # (Manual) PT INR Fibrinogen dRVVT Confirm Interp Factor V Activity POC ABG pH 7.514 H POC ABG pCO2 29.1 L POC ABG pO2 72 L ABG pO2 ABG HCO3 ABG Hemoglobin Oxyhemoglobin Sodium 133 L Potassium 3.4 L Chloride 94.9 L Carbon Dioxide 19 L BUN 30 H Creatinine 2.1 H Glucose 139 H POC Glucose 146 H Lactic Acid Calcium Phosphorus Magnesium Direct Bilirubin AST ALT Alkaline Phosphatase Lactate Dehydrogenase Troponin T C-Reactive Protein Total Protein Albumin Prealbumin Triglycerides Cholesterol LDL Cholesterol Direct HDL Cholesterol Urine pH Urine WBC (Auto) Urine Creatinine Urine Total Protein Fluid Total Protein Vancomycin Trough Rheumatoid Factor Complement C4 Miscellaneous Test Crossmatch 09/06/16 09/06/16 09/06/16 11:57 17:58 19:02 WBC RBC Hgb Hct MCV MCH MCHC RDW Plt Count Lymph % (Auto) [place] % (Auto) Lymph # [place] # Baso # Seg Neutrophils % Seg Neuts % (Manual) Lymphocytes % (Manual) Monocytes % (Manual) Eosinophils % (Manual) Basophils % (Manual) Nucleated RBC % Seg Neutrophils # Seg Neutrophils # Man Lymphocytes # (Manual) Monocytes # (Manual) Eosinophils # (Manual) PT INR Fibrinogen dRVVT Confirm Interp Factor V Activity POC ABG pH 7.465 H POC ABG pCO2 32.0 L POC ABG pO2 ABG pO2 ABG HCO3 ABG Hemoglobin Oxyhemoglobin Sodium Potassium Chloride Carbon Dioxide BUN Creatinine Glucose POC Glucose 165 H 160 H Lactic Acid Calcium Phosphorus Magnesium Direct Bilirubin AST ALT Alkaline Phosphatase Lactate Dehydrogenase Troponin T C-Reactive Protein Total Protein Albumin Prealbumin Triglycerides Cholesterol LDL Cholesterol Direct HDL Cholesterol Urine pH Urine WBC (Auto) Urine Creatinine Urine Total Protein Fluid Total Protein Vancomycin Trough Rheumatoid Factor Complement C4 Miscellaneous Test Crossmatch 09/06/16 09/07/16 09/07/16 23:45 02:47 02:47 WBC RBC Hgb Hct MCV MCH MCHC RDW Plt Count Lymph % (Auto) [place] % (Auto) Lymph # [place] # Baso # Seg Neutrophils % Seg Neuts % (Manual) Lymphocytes % (Manual) Monocytes % (Manual) Eosinophils % (Manual) Basophils % (Manual) Nucleated RBC % Seg Neutrophils # Seg Neutrophils # Man Lymphocytes # (Manual) Monocytes # (Manual) Eosinophils # (Manual) PT INR Fibrinogen dRVVT Confirm Interp Factor V Activity POC ABG pH POC ABG pCO2 POC ABG pO2 ABG pO2 ABG HCO3 ABG Hemoglobin Oxyhemoglobin Sodium Potassium Chloride Carbon Dioxide BUN Creatinine Glucose POC Glucose 204 H Lactic Acid Calcium Phosphorus Magnesium Direct Bilirubin AST ALT Alkaline Phosphatase Lactate Dehydrogenase Troponin T C-Reactive Protein Total Protein Albumin Prealbumin Triglycerides Cholesterol LDL Cholesterol Direct HDL Cholesterol Urine pH Urine WBC (Auto) 68.0 H Urine Creatinine 106.1 H Urine Total Protein Fluid Total Protein Vancomycin Trough Rheumatoid Factor Complement C4 Miscellaneous Test Crossmatch 09/07/16 09/07/16 09/07/16 04:50 06:19 06:39 WBC RBC Hgb Hct MCV MCH MCHC RDW Plt Count Lymph % (Auto) [place] % (Auto) Lymph # [place] # Baso # Seg Neutrophils % Seg Neuts % (Manual) Lymphocytes % (Manual) Monocytes % (Manual) Eosinophils % (Manual) Basophils % (Manual) Nucleated RBC % Seg Neutrophils # Seg Neutrophils # Man Lymphocytes # (Manual) Monocytes # (Manual) Eosinophils # (Manual) PT INR Fibrinogen dRVVT Confirm Interp Factor V Activity POC ABG pH 7.457 H POC ABG pCO2 32.1 L POC ABG pO2 76 L ABG pO2 ABG HCO3 ABG Hemoglobin Oxyhemoglobin Sodium 132 L Potassium Chloride 94.7 L Carbon Dioxide BUN 53 H Creatinine 2.9 H Glucose 151 H POC Glucose 149 H Lactic Acid Calcium Phosphorus Magnesium Direct Bilirubin AST ALT Alkaline Phosphatase Lactate Dehydrogenase Troponin T C-Reactive Protein Total Protein Albumin Prealbumin Triglycerides Cholesterol LDL Cholesterol Direct HDL Cholesterol Urine pH Urine WBC (Auto) Urine Creatinine Urine Total Protein Fluid Total Protein Vancomycin Trough Rheumatoid Factor Complement C4 Miscellaneous Test Crossmatch 09/07/16 09/07/16 09/07/16 09:20 11:43 11:43 WBC 19.4 H RBC Hgb 8.3 L Hct 26.4 L D MCV 72 L D MCH 22 L MCHC RDW 17.9 H Plt Count Lymph % (Auto) 8.5 L [place] % (Auto) Lymph # [place] # 1.0 H Baso # Seg Neutrophils % 85.8 H Seg Neuts % (Manual) Lymphocytes % (Manual) Monocytes % (Manual) Eosinophils % (Manual) Basophils % (Manual) Nucleated RBC % Seg Neutrophils # 16.6 H Seg Neutrophils # Man Lymphocytes # (Manual) Monocytes # (Manual) Eosinophils # (Manual) PT INR Fibrinogen dRVVT Confirm Interp Factor V Activity POC ABG pH POC ABG pCO2 POC ABG pO2 ABG pO2 ABG HCO3 ABG Hemoglobin Oxyhemoglobin Sodium 134 L Potassium Chloride 97.2 L Carbon Dioxide 20 L BUN 58 H Creatinine 2.9 H Glucose 147 H POC Glucose Lactic Acid Calcium Phosphorus 2.40 L Magnesium 2.40 H Direct Bilirubin AST ALT Alkaline Phosphatase Lactate Dehydrogenase Troponin T C-Reactive Protein Total Protein 5.8 L Albumin 2.2 L Prealbumin Triglycerides Cholesterol LDL Cholesterol Direct HDL Cholesterol Urine pH Urine WBC (Auto) Urine Creatinine Urine Total Protein Fluid Total Protein Vancomycin Trough Rheumatoid Factor Complement C4 58 H Miscellaneous Test Crossmatch 09/07/16 09/07/16 09/07/16 11:50 16:00 17:31 WBC RBC Hgb Hct MCV MCH MCHC RDW Plt Count Lymph % (Auto) [place] % (Auto) Lymph # [place] # Baso # Seg Neutrophils % Seg Neuts % (Manual) Lymphocytes % (Manual) Monocytes % (Manual) Eosinophils % (Manual) Basophils % (Manual) Nucleated RBC % Seg Neutrophils # Seg Neutrophils # Man Lymphocytes # (Manual) Monocytes # (Manual) Eosinophils # (Manual) PT INR Fibrinogen dRVVT Confirm Interp Factor V Activity POC ABG pH POC ABG pCO2 POC ABG pO2 158 H ABG pO2 ABG HCO3 ABG Hemoglobin Oxyhemoglobin Sodium Potassium Chloride Carbon Dioxide BUN Creatinine Glucose POC Glucose 175 H Lactic Acid Calcium Phosphorus Magnesium Direct Bilirubin AST ALT Alkaline Phosphatase Lactate Dehydrogenase Troponin T C-Reactive Protein Total Protein Albumin Prealbumin Triglycerides Cholesterol LDL Cholesterol Direct HDL Cholesterol Urine pH Urine WBC (Auto) Urine Creatinine 66.3 H Urine Total Protein Fluid Total Protein Vancomycin Trough Rheumatoid Factor Complement C4 Miscellaneous Test Crossmatch 09/07/16 09/08/16 09/08/16 23:50 05:46 06:18 WBC 17.8 H RBC 3.58 L Hgb 8.1 L Hct 25.5 L MCV 71 L MCH 23 L MCHC RDW 18.4 H Plt Count Lymph % (Auto) [place] % (Auto) Lymph # [place] # Baso # Seg Neutrophils % Seg Neuts % (Manual) 92.0 H Lymphocytes % (Manual) 6.0 L Monocytes % (Manual) Eosinophils % (Manual) Basophils % (Manual) Nucleated RBC % Seg Neutrophils # Seg Neutrophils # Man 16.4 H Lymphocytes # (Manual) 1.1 L Monocytes # (Manual) Eosinophils # (Manual) PT INR Fibrinogen dRVVT Confirm Interp Factor V Activity POC ABG pH POC ABG pCO2 34.3 L POC ABG pO2 71 L ABG pO2 ABG HCO3 ABG Hemoglobin Oxyhemoglobin Sodium Potassium Chloride Carbon Dioxide BUN Creatinine Glucose POC Glucose 216 H Lactic Acid Calcium Phosphorus Magnesium Direct Bilirubin AST ALT Alkaline Phosphatase Lactate Dehydrogenase Troponin T C-Reactive Protein Total Protein Albumin Prealbumin Triglycerides Cholesterol LDL Cholesterol Direct HDL Cholesterol Urine pH Urine WBC (Auto) Urine Creatinine Urine Total Protein Fluid Total Protein Vancomycin Trough Rheumatoid Factor Complement C4 Miscellaneous Test Crossmatch 09/08/16 09/08/16 09/08/16 06:18 06:51 10:55 WBC RBC Hgb Hct MCV MCH MCHC RDW Plt Count Lymph % (Auto) [place] % (Auto) Lymph # [place] # Baso # Seg Neutrophils % Seg Neuts % (Manual) Lymphocytes % (Manual) Monocytes % (Manual) Eosinophils % (Manual) Basophils % (Manual) Nucleated RBC % Seg Neutrophils # Seg Neutrophils # Man Lymphocytes # (Manual) Monocytes # (Manual) Eosinophils # (Manual) PT INR Fibrinogen dRVVT Confirm Interp Factor V Activity POC ABG pH POC ABG pCO2 POC ABG pO2 ABG pO2 ABG HCO3 ABG Hemoglobin Oxyhemoglobin Sodium 133 L Potassium Chloride 96.9 L Carbon Dioxide 20 L BUN 63 H Creatinine 2.7 H Glucose 195 H POC Glucose 204 H 169 H Lactic Acid Calcium Phosphorus Magnesium Direct Bilirubin AST ALT Alkaline Phosphatase Lactate Dehydrogenase Troponin T C-Reactive Protein Total Protein Albumin Prealbumin Triglycerides Cholesterol LDL Cholesterol Direct HDL Cholesterol Urine pH Urine WBC (Auto) Urine Creatinine Urine Total Protein Fluid Total Protein Vancomycin Trough Rheumatoid Factor Complement C4 Miscellaneous Test Crossmatch 09/08/16 09/08/16 09/08/16 11:48 11:48 11:48 WBC RBC Hgb Hct MCV MCH MCHC RDW Plt Count Lymph % (Auto) [place] % (Auto) Lymph # [place] # Baso # Seg Neutrophils % Seg Neuts % (Manual) Lymphocytes % (Manual) Monocytes % (Manual) Eosinophils % (Manual) Basophils % (Manual) Nucleated RBC % Seg Neutrophils # Seg Neutrophils # Man Lymphocytes # (Manual) Monocytes # (Manual) Eosinophils # (Manual) PT INR Fibrinogen 750 H dRVVT Confirm Interp Factor V Activity POC ABG pH POC ABG pCO2 POC ABG pO2 ABG pO2 ABG HCO3 ABG Hemoglobin Oxyhemoglobin Sodium Potassium Chloride Carbon Dioxide BUN Creatinine Glucose POC Glucose Lactic Acid Calcium Phosphorus Magnesium Direct Bilirubin AST ALT Alkaline Phosphatase Lactate Dehydrogenase Troponin T C-Reactive Protein 15.70 H Total Protein Albumin Prealbumin Triglycerides Cholesterol LDL Cholesterol Direct HDL Cholesterol Urine pH Urine WBC (Auto) Urine Creatinine Urine Total Protein Fluid Total Protein Vancomycin Trough Rheumatoid Factor 24 H Complement C4 Miscellaneous Test Crossmatch 09/08/16 09/08/16 09/09/16 15:35 18:25 00:24 WBC RBC Hgb Hct MCV MCH MCHC RDW Plt Count Lymph % (Auto) [place] % (Auto) Lymph # [place] # Baso # Seg Neutrophils % Seg Neuts % (Manual) Lymphocytes % (Manual) Monocytes % (Manual) Eosinophils % (Manual) Basophils % (Manual) Nucleated RBC % Seg Neutrophils # Seg Neutrophils # Man Lymphocytes # (Manual) Monocytes # (Manual) Eosinophils # (Manual) PT INR Fibrinogen dRVVT Confirm Interp Factor V Activity 182 H POC ABG pH POC ABG pCO2 POC ABG pO2 ABG pO2 ABG HCO3 ABG Hemoglobin Oxyhemoglobin Sodium Potassium Chloride Carbon Dioxide BUN Creatinine Glucose POC Glucose 184 H 216 H Lactic Acid Calcium Phosphorus Magnesium Direct Bilirubin AST ALT Alkaline Phosphatase Lactate Dehydrogenase Troponin T C-Reactive Protein Total Protein Albumin Prealbumin Triglycerides Cholesterol LDL Cholesterol Direct HDL Cholesterol Urine pH Urine WBC (Auto) Urine Creatinine Urine Total Protein Fluid Total Protein Vancomycin Trough Rheumatoid Factor Complement C4 Miscellaneous Test Crossmatch 09/09/16 09/09/16 09/09/16 03:00 03:00 04:04 WBC 27.9 H RBC Hgb 8.7 L Hct 28.1 L MCV 72 L MCH 22 L MCHC RDW 18.4 H Plt Count 485 H Lymph % (Auto) [place] % (Auto) Lymph # [place] # Baso # Seg Neutrophils % Seg Neuts % (Manual) 77.0 H Lymphocytes % (Manual) 9.0 L Monocytes % (Manual) Eosinophils % (Manual) Basophils % (Manual) Nucleated RBC % Seg Neutrophils # Seg Neutrophils # Man 21.5 H Lymphocytes # (Manual) Monocytes # (Manual) 2.0 H Eosinophils # (Manual) PT INR Fibrinogen dRVVT Confirm Interp Factor V Activity POC ABG pH POC ABG pCO2 POC ABG pO2 121 H ABG pO2 ABG HCO3 ABG Hemoglobin Oxyhemoglobin Sodium 135 L Potassium Chloride 96.3 L Carbon Dioxide 21 L BUN 83 H Creatinine 3.0 H Glucose 135 H POC Glucose Lactic Acid Calcium Phosphorus Magnesium Direct Bilirubin AST ALT Alkaline Phosphatase Lactate Dehydrogenase Troponin T C-Reactive Protein Total Protein Albumin Prealbumin Triglycerides Cholesterol LDL Cholesterol Direct HDL Cholesterol Urine pH Urine WBC (Auto) Urine Creatinine Urine Total Protein Fluid Total Protein Vancomycin Trough Rheumatoid Factor Complement C4 Miscellaneous Test Crossmatch 09/09/16 09/09/16 09/09/16 05:41 11:55 14:13 WBC RBC Hgb Hct MCV MCH MCHC RDW Plt Count Lymph % (Auto) [place] % (Auto) Lymph # [place] # Baso # Seg Neutrophils % Seg Neuts % (Manual) Lymphocytes % (Manual) Monocytes % (Manual) Eosinophils % (Manual) Basophils % (Manual) Nucleated RBC % Seg Neutrophils # Seg Neutrophils # Man Lymphocytes # (Manual) Monocytes # (Manual) Eosinophils # (Manual) PT INR Fibrinogen dRVVT Confirm Interp Factor V Activity POC ABG pH POC ABG pCO2 POC ABG pO2 ABG pO2 ABG HCO3 ABG Hemoglobin Oxyhemoglobin Sodium Potassium Chloride Carbon Dioxide BUN Creatinine Glucose POC Glucose 155 H 186 H Lactic Acid Calcium Phosphorus Magnesium Direct Bilirubin AST ALT Alkaline Phosphatase Lactate Dehydrogenase Troponin T C-Reactive Protein Total Protein Albumin Prealbumin Triglycerides Cholesterol LDL Cholesterol Direct HDL Cholesterol Urine pH Urine WBC (Auto) 25.0 H Urine Creatinine Urine Total Protein Fluid Total Protein Vancomycin Trough Rheumatoid Factor Complement C4 Miscellaneous Test Crossmatch 09/09/16 09/09/16 09/10/16 17:33 23:13 05:09 WBC RBC Hgb Hct MCV MCH MCHC RDW Plt Count Lymph % (Auto) [place] % (Auto) Lymph # [place] # Baso # Seg Neutrophils % Seg Neuts % (Manual) Lymphocytes % (Manual) Monocytes % (Manual) Eosinophils % (Manual) Basophils % (Manual) Nucleated RBC % Seg Neutrophils # Seg Neutrophils # Man Lymphocytes # (Manual) Monocytes # (Manual) Eosinophils # (Manual) PT INR Fibrinogen dRVVT Confirm Interp Factor V Activity POC ABG pH POC ABG pCO2 POC ABG pO2 74 L ABG pO2 ABG HCO3 ABG Hemoglobin Oxyhemoglobin Sodium Potassium Chloride Carbon Dioxide BUN Creatinine Glucose POC Glucose 211 H 215 H Lactic Acid Calcium Phosphorus Magnesium Direct Bilirubin AST ALT Alkaline Phosphatase Lactate Dehydrogenase Troponin T C-Reactive Protein Total Protein Albumin Prealbumin Triglycerides Cholesterol LDL Cholesterol Direct HDL Cholesterol Urine pH Urine WBC (Auto) Urine Creatinine Urine Total Protein Fluid Total Protein Vancomycin Trough Rheumatoid Factor Complement C4 Miscellaneous Test Crossmatch 09/10/16 09/10/16 09/10/16 05:17 05:17 11:31 WBC 15.8 H RBC 3.25 L Hgb 7.3 L Hct 22.9 L MCV 71 L MCH 23 L MCHC RDW 18.4 H Plt Count Lymph % (Auto) [place] % (Auto) Lymph # [place] # Baso # Seg Neutrophils % Seg Neuts % (Manual) 91.0 H Lymphocytes % (Manual) 4.0 L Monocytes % (Manual) Eosinophils % (Manual) Basophils % (Manual) Nucleated RBC % Seg Neutrophils # Seg Neutrophils # Man 14.4 H Lymphocytes # (Manual) 0.6 L Monocytes # (Manual) Eosinophils # (Manual) PT INR Fibrinogen dRVVT Confirm Interp Factor V Activity POC ABG pH POC ABG pCO2 POC ABG pO2 ABG pO2 ABG HCO3 ABG Hemoglobin Oxyhemoglobin Sodium Potassium Chloride Carbon Dioxide 21 L BUN 93 H Creatinine 2.9 H Glucose 146 H POC Glucose 188 H Lactic Acid Calcium 8.1 L Phosphorus Magnesium Direct Bilirubin AST ALT Alkaline Phosphatase Lactate Dehydrogenase Troponin T C-Reactive Protein Total Protein Albumin Prealbumin Triglycerides Cholesterol LDL Cholesterol Direct HDL Cholesterol Urine pH Urine WBC (Auto) Urine Creatinine Urine Total Protein Fluid Total Protein Vancomycin Trough Rheumatoid Factor Complement C4 Miscellaneous Test Crossmatch 09/10/16 09/10/16 09/10/16 13:17 17:20 23:32 WBC RBC Hgb Hct MCV MCH MCHC RDW Plt Count Lymph % (Auto) [place] % (Auto) Lymph # [place] # Baso # Seg Neutrophils % Seg Neuts % (Manual) Lymphocytes % (Manual) Monocytes % (Manual) Eosinophils % (Manual) Basophils % (Manual) Nucleated RBC % Seg Neutrophils # Seg Neutrophils # Man Lymphocytes # (Manual) Monocytes # (Manual) Eosinophils # (Manual) PT INR Fibrinogen dRVVT Confirm Interp Factor V Activity POC ABG pH POC ABG pCO2 POC ABG pO2 ABG pO2 ABG HCO3 ABG Hemoglobin Oxyhemoglobin Sodium Potassium Chloride Carbon Dioxide BUN Creatinine Glucose POC Glucose 199 H 186 H Lactic Acid Calcium Phosphorus Magnesium Direct Bilirubin AST ALT Alkaline Phosphatase Lactate Dehydrogenase Troponin T C-Reactive Protein Total Protein Albumin Prealbumin Triglycerides Cholesterol LDL Cholesterol Direct HDL Cholesterol Urine pH Urine WBC (Auto) Urine Creatinine Urine Total Protein Fluid Total Protein Vancomycin Trough Rheumatoid Factor Complement C4 Miscellaneous Test Crossmatch See Detail 09/11/16 09/11/16 09/11/16 05:10 05:10 05:17 WBC 28.4 H RBC Hgb 9.2 L Hct 29.3 L D MCV 73 L MCH 23 L MCHC RDW 18.9 H Plt Count 452 H Lymph % (Auto) [place] % (Auto) Lymph # [place] # Baso # Seg Neutrophils % Seg Neuts % (Manual) 89.5 H Lymphocytes % (Manual) 2.0 L Monocytes % (Manual) Eosinophils % (Manual) Basophils % (Manual) Nucleated RBC % Seg Neutrophils # Seg Neutrophils # Man 25.4 H Lymphocytes # (Manual) 0.6 L Monocytes # (Manual) 1.3 H Eosinophils # (Manual) PT INR Fibrinogen dRVVT Confirm Interp Factor V Activity POC ABG pH POC ABG pCO2 POC ABG pO2 ABG pO2 ABG HCO3 ABG Hemoglobin Oxyhemoglobin Sodium 136 L Potassium Chloride Carbon Dioxide 18 L BUN 107 H Creatinine 2.6 H Glucose 187 H POC Glucose 230 H Lactic Acid Calcium 8.3 L Phosphorus Magnesium Direct Bilirubin AST ALT Alkaline Phosphatase Lactate Dehydrogenase Troponin T C-Reactive Protein Total Protein Albumin Prealbumin Triglycerides Cholesterol LDL Cholesterol Direct HDL Cholesterol Urine pH Urine WBC (Auto) Urine Creatinine Urine Total Protein Fluid Total Protein Vancomycin Trough Rheumatoid Factor Complement C4 Miscellaneous Test Crossmatch 09/11/16 09/11/16 09/11/16 05:55 12:02 17:32 WBC RBC Hgb Hct MCV MCH MCHC RDW Plt Count Lymph % (Auto) [place] % (Auto) Lymph # [place] # Baso # Seg Neutrophils % Seg Neuts % (Manual) Lymphocytes % (Manual) Monocytes % (Manual) Eosinophils % (Manual) Basophils % (Manual) Nucleated RBC % Seg Neutrophils # Seg Neutrophils # Man Lymphocytes # (Manual) Monocytes # (Manual) Eosinophils # (Manual) PT INR Fibrinogen dRVVT Confirm Interp Factor V Activity POC ABG pH POC ABG pCO2 33.8 L POC ABG pO2 ABG pO2 ABG HCO3 ABG Hemoglobin Oxyhemoglobin Sodium Potassium Chloride Carbon Dioxide BUN Creatinine Glucose POC Glucose 191 H 239 H Lactic Acid Calcium Phosphorus Magnesium Direct Bilirubin AST ALT Alkaline Phosphatase Lactate Dehydrogenase Troponin T C-Reactive Protein Total Protein Albumin Prealbumin Triglycerides Cholesterol LDL Cholesterol Direct HDL Cholesterol Urine pH Urine WBC (Auto) Urine Creatinine Urine Total Protein Fluid Total Protein Vancomycin Trough Rheumatoid Factor Complement C4 Miscellaneous Test Crossmatch 09/11/16 09/12/16 09/12/16 23:52 05:09 05:32 WBC RBC Hgb Hct MCV MCH MCHC RDW Plt Count Lymph % (Auto) [place] % (Auto) Lymph # [place] # Baso # Seg Neutrophils % Seg Neuts % (Manual) Lymphocytes % (Manual) Monocytes % (Manual) Eosinophils % (Manual) Basophils % (Manual) Nucleated RBC % Seg Neutrophils # Seg Neutrophils # Man Lymphocytes # (Manual) Monocytes # (Manual) Eosinophils # (Manual) PT INR Fibrinogen dRVVT Confirm Interp Factor V Activity POC ABG pH POC ABG pCO2 34.6 L POC ABG pO2 ABG pO2 ABG HCO3 ABG Hemoglobin Oxyhemoglobin Sodium Potassium Chloride Carbon Dioxide BUN Creatinine Glucose POC Glucose 265 H 184 H Lactic Acid Calcium Phosphorus Magnesium Direct Bilirubin AST ALT Alkaline Phosphatase Lactate Dehydrogenase Troponin T C-Reactive Protein Total Protein Albumin Prealbumin Triglycerides Cholesterol LDL Cholesterol Direct HDL Cholesterol Urine pH Urine WBC (Auto) Urine Creatinine Urine Total Protein Fluid Total Protein Vancomycin Trough Rheumatoid Factor Complement C4 Miscellaneous Test Crossmatch 09/12/16 09/12/16 09/12/16 06:45 06:45 07:22 WBC 31.7 H RBC 3.54 L Hgb 8.3 L Hct 25.9 L MCV 73 L MCH 23 L MCHC RDW 18.9 H Plt Count Lymph % (Auto) [place] % (Auto) Lymph # [place] # Baso # Seg Neutrophils % Seg Neuts % (Manual) 88.5 H Lymphocytes % (Manual) 4.5 L Monocytes % (Manual) Eosinophils % (Manual) Basophils % (Manual) Nucleated RBC % Seg Neutrophils # Seg Neutrophils # Man 28.1 H Lymphocytes # (Manual) Monocytes # (Manual) 1.0 H Eosinophils # (Manual) PT INR Fibrinogen dRVVT Confirm Interp Factor V Activity POC ABG pH POC ABG pCO2 POC ABG pO2 ABG pO2 ABG HCO3 ABG Hemoglobin Oxyhemoglobin Sodium Potassium Chloride Carbon Dioxide 20 L BUN 115 H Creatinine 2.7 H Glucose 165 H POC Glucose Lactic Acid Calcium 8.0 L Phosphorus Magnesium Direct Bilirubin AST ALT Alkaline Phosphatase Lactate Dehydrogenase Troponin T C-Reactive Protein Total Protein Albumin Prealbumin Triglycerides 217 H Cholesterol LDL Cholesterol Direct HDL Cholesterol Urine pH Urine WBC (Auto) Urine Creatinine Urine Total Protein Fluid Total Protein Vancomycin Trough Rheumatoid Factor Complement C4 Miscellaneous Test Crossmatch 09/12/16 09/12/16 09/12/16 07:22 09:59 12:21 WBC RBC Hgb Hct MCV MCH MCHC RDW Plt Count Lymph % (Auto) [place] % (Auto) Lymph # [place] # Baso # Seg Neutrophils % Seg Neuts % (Manual) Lymphocytes % (Manual) Monocytes % (Manual) Eosinophils % (Manual) Basophils % (Manual) Nucleated RBC % Seg Neutrophils # Seg Neutrophils # Man Lymphocytes # (Manual) Monocytes # (Manual) Eosinophils # (Manual) PT INR Fibrinogen dRVVT Confirm Interp Positive H Factor V Activity POC ABG pH POC ABG pCO2 POC ABG pO2 ABG pO2 ABG HCO3 ABG Hemoglobin Oxyhemoglobin Sodium Potassium Chloride Carbon Dioxide BUN Creatinine Glucose POC Glucose 224 H Lactic Acid Calcium Phosphorus Magnesium Direct Bilirubin AST ALT Alkaline Phosphatase Lactate Dehydrogenase Troponin T C-Reactive Protein 1.70 H Total Protein Albumin Prealbumin Triglycerides Cholesterol LDL Cholesterol Direct HDL Cholesterol Urine pH Urine WBC (Auto) Urine Creatinine Urine Total Protein Fluid Total Protein Vancomycin Trough Rheumatoid Factor Complement C4 Miscellaneous Test Crossmatch 09/12/16 09/12/16 09/13/16 16:51 23:28 04:00 WBC 45.0 H* RBC Hgb 9.4 L Hct MCV 75 L MCH 23 L MCHC RDW 19.0 H Plt Count 470 H Lymph % (Auto) [place] % (Auto) Lymph # [place] # Baso # Seg Neutrophils % Seg Neuts % (Manual) 89.0 H Lymphocytes % (Manual) 5.0 L Monocytes % (Manual) Eosinophils % (Manual) Basophils % (Manual) Nucleated RBC % Seg Neutrophils # Seg Neutrophils # Man 40.1 H Lymphocytes # (Manual) Monocytes # (Manual) Eosinophils # (Manual) PT INR Fibrinogen dRVVT Confirm Interp Factor V Activity POC ABG pH POC ABG pCO2 POC ABG pO2 ABG pO2 ABG HCO3 ABG Hemoglobin Oxyhemoglobin Sodium Potassium Chloride Carbon Dioxide BUN Creatinine Glucose POC Glucose 169 H 150 H Lactic Acid Calcium Phosphorus Magnesium Direct Bilirubin AST ALT Alkaline Phosphatase Lactate Dehydrogenase Troponin T C-Reactive Protein Total Protein Albumin Prealbumin Triglycerides Cholesterol LDL Cholesterol Direct HDL Cholesterol Urine pH Urine WBC (Auto) Urine Creatinine Urine Total Protein Fluid Total Protein Vancomycin Trough Rheumatoid Factor Complement C4 Miscellaneous Test Crossmatch 09/13/16 09/13/16 09/13/16 04:00 11:26 17:31 WBC RBC Hgb Hct MCV MCH MCHC RDW Plt Count Lymph % (Auto) [place] % (Auto) Lymph # [place] # Baso # Seg Neutrophils % Seg Neuts % (Manual) Lymphocytes % (Manual) Monocytes % (Manual) Eosinophils % (Manual) Basophils % (Manual) Nucleated RBC % Seg Neutrophils # Seg Neutrophils # Man Lymphocytes # (Manual) Monocytes # (Manual) Eosinophils # (Manual) PT INR Fibrinogen dRVVT Confirm Interp Factor V Activity POC ABG pH POC ABG pCO2 POC ABG pO2 ABG pO2 ABG HCO3 ABG Hemoglobin Oxyhemoglobin Sodium Potassium Chloride Carbon Dioxide 20 L BUN 116 H Creatinine 3.0 H Glucose 172 H POC Glucose 140 H 183 H Lactic Acid Calcium Phosphorus Magnesium Direct Bilirubin AST ALT Alkaline Phosphatase Lactate Dehydrogenase Troponin T C-Reactive Protein Total Protein 6.2 L Albumin 2.9 L Prealbumin Triglycerides Cholesterol LDL Cholesterol Direct HDL Cholesterol Urine pH Urine WBC (Auto) Urine Creatinine Urine Total Protein Fluid Total Protein Vancomycin Trough Rheumatoid Factor Complement C4 Miscellaneous Test Crossmatch 09/13/16 09/14/16 09/14/16 23:23 04:06 04:07 WBC 29.4 H RBC Hgb 8.9 L Hct 27.3 L MCV 75 L MCH 24 L MCHC RDW 19.1 H Plt Count Lymph % (Auto) [place] % (Auto) Lymph # [place] # Baso # Seg Neutrophils % Seg Neuts % (Manual) 84.0 H Lymphocytes % (Manual) 6.0 L Monocytes % (Manual) 9.0 H Eosinophils % (Manual) Basophils % (Manual) Nucleated RBC % Seg Neutrophils # Seg Neutrophils # Man 24.7 H Lymphocytes # (Manual) Monocytes # (Manual) 2.6 H Eosinophils # (Manual) PT INR Fibrinogen dRVVT Confirm Interp Factor V Activity POC ABG pH 7.342 L POC ABG pCO2 POC ABG pO2 116 H ABG pO2 ABG HCO3 ABG Hemoglobin Oxyhemoglobin Sodium Potassium Chloride Carbon Dioxide BUN Creatinine Glucose POC Glucose 154 H Lactic Acid Calcium Phosphorus Magnesium Direct Bilirubin AST ALT Alkaline Phosphatase Lactate Dehydrogenase Troponin T C-Reactive Protein Total Protein Albumin Prealbumin Triglycerides Cholesterol LDL Cholesterol Direct HDL Cholesterol Urine pH Urine WBC (Auto) Urine Creatinine Urine Total Protein Fluid Total Protein Vancomycin Trough Rheumatoid Factor Complement C4 Miscellaneous Test Crossmatch 09/14/16 09/14/16 09/14/16 04:07 05:29 12:19 WBC RBC Hgb Hct MCV MCH MCHC RDW Plt Count Lymph % (Auto) [place] % (Auto) Lymph # [place] # Baso # Seg Neutrophils % Seg Neuts % (Manual) Lymphocytes % (Manual) Monocytes % (Manual) Eosinophils % (Manual) Basophils % (Manual) Nucleated RBC % Seg Neutrophils # Seg Neutrophils # Man Lymphocytes # (Manual) Monocytes # (Manual) Eosinophils # (Manual) PT INR Fibrinogen dRVVT Confirm Interp Factor V Activity POC ABG pH POC ABG pCO2 POC ABG pO2 ABG pO2 ABG HCO3 ABG Hemoglobin Oxyhemoglobin Sodium 136 L Potassium Chloride Carbon Dioxide 18 L BUN 121 H Creatinine 2.8 H Glucose 214 H POC Glucose 239 H 181 H Lactic Acid Calcium Phosphorus Magnesium Direct Bilirubin AST ALT Alkaline Phosphatase Lactate Dehydrogenase Troponin T C-Reactive Protein Total Protein Albumin Prealbumin Triglycerides Cholesterol LDL Cholesterol Direct HDL Cholesterol Urine pH Urine WBC (Auto) Urine Creatinine Urine Total Protein Fluid Total Protein Vancomycin Trough Rheumatoid Factor Complement C4 Miscellaneous Test Crossmatch 09/14/16 09/14/16 09/15/16 18:12 23:37 05:00 WBC 26.1 H RBC 3.05 L Hgb 7.2 L Hct 22.9 L MCV 75 L MCH 24 L MCHC RDW 19.0 H Plt Count Lymph % (Auto) [place] % (Auto) Lymph # [place] # Baso # Seg Neutrophils % Seg Neuts % (Manual) Lymphocytes % (Manual) Monocytes % (Manual) Eosinophils % (Manual) Basophils % (Manual) Nucleated RBC % Seg Neutrophils # Seg Neutrophils # Man Lymphocytes # (Manual) Monocytes # (Manual) Eosinophils # (Manual) PT INR Fibrinogen dRVVT Confirm Interp Factor V Activity POC ABG pH POC ABG pCO2 POC ABG pO2 ABG pO2 ABG HCO3 ABG Hemoglobin Oxyhemoglobin Sodium Potassium Chloride Carbon Dioxide BUN Creatinine Glucose POC Glucose 266 H 154 H Lactic Acid Calcium Phosphorus Magnesium Direct Bilirubin AST ALT Alkaline Phosphatase Lactate Dehydrogenase Troponin T C-Reactive Protein Total Protein Albumin Prealbumin Triglycerides Cholesterol LDL Cholesterol Direct HDL Cholesterol Urine pH Urine WBC (Auto) Urine Creatinine Urine Total Protein Fluid Total Protein Vancomycin Trough Rheumatoid Factor Complement C4 Miscellaneous Test Crossmatch 09/15/16 09/15/16 09/15/16 05:00 05:17 12:45 WBC RBC Hgb Hct MCV MCH MCHC RDW Plt Count Lymph % (Auto) [place] % (Auto) Lymph # [place] # Baso # Seg Neutrophils % Seg Neuts % (Manual) Lymphocytes % (Manual) Monocytes % (Manual) Eosinophils % (Manual) Basophils % (Manual) Nucleated RBC % Seg Neutrophils # Seg Neutrophils # Man Lymphocytes # (Manual) Monocytes # (Manual) Eosinophils # (Manual) PT INR Fibrinogen dRVVT Confirm Interp Factor V Activity POC ABG pH POC ABG pCO2 POC ABG pO2 ABG pO2 ABG HCO3 ABG Hemoglobin Oxyhemoglobin Sodium Potassium 5.2 H Chloride Carbon Dioxide 18 L BUN 139 H Creatinine 3.7 H Glucose 227 H POC Glucose 226 H 244 H Lactic Acid Calcium 8.3 L Phosphorus Magnesium Direct Bilirubin AST ALT Alkaline Phosphatase Lactate Dehydrogenase Troponin T C-Reactive Protein Total Protein Albumin Prealbumin Triglycerides Cholesterol LDL Cholesterol Direct HDL Cholesterol Urine pH Urine WBC (Auto) Urine Creatinine Urine Total Protein Fluid Total Protein Vancomycin Trough Rheumatoid Factor Complement C4 Miscellaneous Test Crossmatch 09/15/16 09/15/16 09/15/16 14:32 17:33 23:35 WBC RBC Hgb Hct MCV MCH MCHC RDW Plt Count Lymph % (Auto) [place] % (Auto) Lymph # [place] # Baso # Seg Neutrophils % Seg Neuts % (Manual) Lymphocytes % (Manual) Monocytes % (Manual) Eosinophils % (Manual) Basophils % (Manual) Nucleated RBC % Seg Neutrophils # Seg Neutrophils # Man Lymphocytes # (Manual) Monocytes # (Manual) Eosinophils # (Manual) PT INR Fibrinogen dRVVT Confirm Interp Factor V Activity POC ABG pH POC ABG pCO2 27.7 L POC ABG pO2 120 H ABG pO2 ABG HCO3 ABG Hemoglobin Oxyhemoglobin Sodium Potassium Chloride Carbon Dioxide BUN Creatinine Glucose POC Glucose 232 H 167 H Lactic Acid Calcium Phosphorus Magnesium Direct Bilirubin AST ALT Alkaline Phosphatase Lactate Dehydrogenase Troponin T C-Reactive Protein Total Protein Albumin Prealbumin Triglycerides Cholesterol LDL Cholesterol Direct HDL Cholesterol Urine pH Urine WBC (Auto) Urine Creatinine Urine Total Protein Fluid Total Protein Vancomycin Trough Rheumatoid Factor Complement C4 Miscellaneous Test Crossmatch 09/16/16 09/16/16 09/16/16 03:58 10:27 10:27 WBC 19.0 H RBC 2.77 L Hgb 6.5 L Hct 20.9 L MCV 76 L MCH 23 L MCHC RDW 19.3 H Plt Count Lymph % (Auto) 11.0 L [place] % (Auto) Lymph # [place] # 1.1 H Baso # Seg Neutrophils % 82.5 H Seg Neuts % (Manual) Lymphocytes % (Manual) Monocytes % (Manual) Eosinophils % (Manual) Basophils % (Manual) Nucleated RBC % Seg Neutrophils # 15.7 H Seg Neutrophils # Man Lymphocytes # (Manual) Monocytes # (Manual) Eosinophils # (Manual) PT INR Fibrinogen dRVVT Confirm Interp Factor V Activity POC ABG pH POC ABG pCO2 POC ABG pO2 ABG pO2 ABG HCO3 ABG Hemoglobin Oxyhemoglobin Sodium Potassium Chloride 109.3 H Carbon Dioxide 18 L BUN 139 H Creatinine 4.1 H Glucose 144 H POC Glucose 146 H Lactic Acid Calcium 8.1 L Phosphorus Magnesium Direct Bilirubin AST ALT Alkaline Phosphatase Lactate Dehydrogenase Troponin T C-Reactive Protein Total Protein Albumin Prealbumin Triglycerides Cholesterol LDL Cholesterol Direct HDL Cholesterol Urine pH Urine WBC (Auto) Urine Creatinine Urine Total Protein Fluid Total Protein Vancomycin Trough Rheumatoid Factor Complement C4 Miscellaneous Test Crossmatch 09/16/16 09/16/16 09/16/16 12:04 12:10 13:55 WBC RBC Hgb Hct MCV MCH MCHC RDW Plt Count Lymph % (Auto) [place] % (Auto) Lymph # [place] # Baso # Seg Neutrophils % Seg Neuts % (Manual) Lymphocytes % (Manual) Monocytes % (Manual) Eosinophils % (Manual) Basophils % (Manual) Nucleated RBC % Seg Neutrophils # Seg Neutrophils # Man Lymphocytes # (Manual) Monocytes # (Manual) Eosinophils # (Manual) PT INR Fibrinogen dRVVT Confirm Interp Factor V Activity POC ABG pH POC ABG pCO2 32.9 L POC ABG pO2 ABG pO2 ABG HCO3 ABG Hemoglobin Oxyhemoglobin Sodium Potassium Chloride Carbon Dioxide BUN Creatinine Glucose POC Glucose 185 H Lactic Acid Calcium Phosphorus Magnesium Direct Bilirubin AST ALT Alkaline Phosphatase Lactate Dehydrogenase Troponin T C-Reactive Protein Total Protein Albumin Prealbumin Triglycerides Cholesterol LDL Cholesterol Direct HDL Cholesterol Urine pH Urine WBC (Auto) Urine Creatinine Urine Total Protein Fluid Total Protein Vancomycin Trough Rheumatoid Factor Complement C4 Miscellaneous Test Crossmatch See Detail 09/16/16 09/16/16 09/16/16 17:55 19:19 23:48 WBC RBC Hgb Hct MCV MCH MCHC RDW Plt Count Lymph % (Auto) [place] % (Auto) Lymph # [place] # Baso # Seg Neutrophils % Seg Neuts % (Manual) Lymphocytes % (Manual) Monocytes % (Manual) Eosinophils % (Manual) Basophils % (Manual) Nucleated RBC % Seg Neutrophils # Seg Neutrophils # Man Lymphocytes # (Manual) Monocytes # (Manual) Eosinophils # (Manual) PT INR Fibrinogen dRVVT Confirm Interp Factor V Activity POC ABG pH POC ABG pCO2 POC ABG pO2 ABG pO2 ABG HCO3 ABG Hemoglobin Oxyhemoglobin Sodium Potassium Chloride Carbon Dioxide BUN Creatinine Glucose POC Glucose 222 H 107 H Lactic Acid Calcium Phosphorus Magnesium Direct Bilirubin AST ALT Alkaline Phosphatase Lactate Dehydrogenase Troponin T C-Reactive Protein Total Protein Albumin Prealbumin Triglycerides Cholesterol LDL Cholesterol Direct HDL Cholesterol Urine pH Urine WBC (Auto) Urine Creatinine 47.4 H Urine Total Protein 16 H Fluid Total Protein Vancomycin Trough Rheumatoid Factor Complement C4 Miscellaneous Test Crossmatch 09/17/16 09/17/16 09/17/16 03:45 03:45 04:55 WBC 19.6 H RBC 3.41 L Hgb 8.5 L Hct 26.7 L MCV 78 L MCH 25 L MCHC RDW 19.9 H Plt Count Lymph % (Auto) 9.3 L [place] % (Auto) Lymph # [place] # 1.2 H Baso # Seg Neutrophils % 83.9 H Seg Neuts % (Manual) Lymphocytes % (Manual) Monocytes % (Manual) Eosinophils % (Manual) Basophils % (Manual) Nucleated RBC % Seg Neutrophils # 16.4 H Seg Neutrophils # Man Lymphocytes # (Manual) Monocytes # (Manual) Eosinophils # (Manual) PT INR Fibrinogen dRVVT Confirm Interp Factor V Activity POC ABG pH POC ABG pCO2 POC ABG pO2 ABG pO2 ABG HCO3 ABG Hemoglobin Oxyhemoglobin Sodium 146 H Potassium 5.1 H Chloride 110.9 H Carbon Dioxide 16 L BUN 146 H Creatinine 4.0 H Glucose 108 H POC Glucose 133 H Lactic Acid Calcium Phosphorus Magnesium 3.00 H Direct Bilirubin AST ALT Alkaline Phosphatase Lactate Dehydrogenase Troponin T C-Reactive Protein Total Protein Albumin Prealbumin Triglycerides Cholesterol LDL Cholesterol Direct HDL Cholesterol Urine pH Urine WBC (Auto) Urine Creatinine Urine Total Protein Fluid Total Protein Vancomycin Trough Rheumatoid Factor Complement C4 Miscellaneous Test Crossmatch 09/17/16 09/17/16 09/17/16 11:15 17:33 23:47 WBC RBC Hgb Hct MCV MCH MCHC RDW Plt Count Lymph % (Auto) [place] % (Auto) Lymph # [place] # Baso # Seg Neutrophils % Seg Neuts % (Manual) Lymphocytes % (Manual) Monocytes % (Manual) Eosinophils % (Manual) Basophils % (Manual) Nucleated RBC % Seg Neutrophils # Seg Neutrophils # Man Lymphocytes # (Manual) Monocytes # (Manual) Eosinophils # (Manual) PT INR Fibrinogen dRVVT Confirm Interp Factor V Activity POC ABG pH POC ABG pCO2 POC ABG pO2 ABG pO2 ABG HCO3 ABG Hemoglobin Oxyhemoglobin Sodium Potassium Chloride Carbon Dioxide BUN Creatinine Glucose POC Glucose 176 H 246 H 148 H Lactic Acid Calcium Phosphorus Magnesium Direct Bilirubin AST ALT Alkaline Phosphatase Lactate Dehydrogenase Troponin T C-Reactive Protein Total Protein Albumin Prealbumin Triglycerides Cholesterol LDL Cholesterol Direct HDL Cholesterol Urine pH Urine WBC (Auto) Urine Creatinine Urine Total Protein Fluid Total Protein Vancomycin Trough Rheumatoid Factor Complement C4 Miscellaneous Test Crossmatch 09/18/16 09/18/16 09/18/16 05:33 08:31 08:31 WBC 18.0 H RBC 3.17 L Hgb 9.0 L Hct 25.7 L MCV MCH MCHC 35 H RDW 20.4 H Plt Count Lymph % (Auto) [place] % (Auto) Lymph # [place] # Baso # Seg Neutrophils % Seg Neuts % (Manual) Lymphocytes % (Manual) Monocytes % (Manual) Eosinophils % (Manual) Basophils % (Manual) Nucleated RBC % Seg Neutrophils # Seg Neutrophils # Man Lymphocytes # (Manual) Monocytes # (Manual) Eosinophils # (Manual) PT INR Fibrinogen dRVVT Confirm Interp Factor V Activity POC ABG pH POC ABG pCO2 POC ABG pO2 ABG pO2 ABG HCO3 ABG Hemoglobin Oxyhemoglobin Sodium Potassium Chloride Carbon Dioxide 15 L BUN 124 H Creatinine 3.8 H Glucose POC Glucose 120 H Lactic Acid Calcium 8.1 L Phosphorus Magnesium Direct Bilirubin AST ALT Alkaline Phosphatase Lactate Dehydrogenase Troponin T C-Reactive Protein Total Protein Albumin Prealbumin Triglycerides Cholesterol LDL Cholesterol Direct HDL Cholesterol Urine pH Urine WBC (Auto) Urine Creatinine Urine Total Protein Fluid Total Protein Vancomycin Trough Rheumatoid Factor Complement C4 Miscellaneous Test Crossmatch 09/18/16 09/18/16 09/18/16 12:03 15:34 17:50 WBC RBC Hgb Hct MCV MCH MCHC RDW Plt Count Lymph % (Auto) [place] % (Auto) Lymph # [place] # Baso # Seg Neutrophils % Seg Neuts % (Manual) Lymphocytes % (Manual) Monocytes % (Manual) Eosinophils % (Manual) Basophils % (Manual) Nucleated RBC % Seg Neutrophils # Seg Neutrophils # Man Lymphocytes # (Manual) Monocytes # (Manual) Eosinophils # (Manual) PT INR Fibrinogen dRVVT Confirm Interp Factor V Activity POC ABG pH POC ABG pCO2 25.7 L POC ABG pO2 66 L ABG pO2 ABG HCO3 ABG Hemoglobin Oxyhemoglobin Sodium Potassium Chloride Carbon Dioxide BUN Creatinine Glucose POC Glucose 156 H 220 H Lactic Acid Calcium Phosphorus Magnesium Direct Bilirubin AST ALT Alkaline Phosphatase Lactate Dehydrogenase Troponin T C-Reactive Protein Total Protein Albumin Prealbumin Triglycerides Cholesterol LDL Cholesterol Direct HDL Cholesterol Urine pH Urine WBC (Auto) Urine Creatinine Urine Total Protein Fluid Total Protein Vancomycin Trough Rheumatoid Factor Complement C4 Miscellaneous Test Crossmatch 09/19/16 09/19/16 09/19/16 06:21 09:50 09:50 WBC 17.1 H RBC 3.49 L Hgb 9.0 L Hct 28.1 L MCV MCH 26 L MCHC RDW 20.8 H Plt Count Lymph % (Auto) 11.5 L [place] % (Auto) 7.5 H Lymph # [place] # 1.3 H Baso # Seg Neutrophils % 79.8 H Seg Neuts % (Manual) Lymphocytes % (Manual) Monocytes % (Manual) Eosinophils % (Manual) Basophils % (Manual) Nucleated RBC % Seg Neutrophils # 13.7 H Seg Neutrophils # Man Lymphocytes # (Manual) Monocytes # (Manual) Eosinophils # (Manual) PT INR Fibrinogen dRVVT Confirm Interp Factor V Activity POC ABG pH POC ABG pCO2 POC ABG pO2 ABG pO2 ABG HCO3 ABG Hemoglobin Oxyhemoglobin Sodium Potassium Chloride 108.6 H Carbon Dioxide 15 L BUN 125 H Creatinine 4.1 H Glucose 124 H POC Glucose 119 H Lactic Acid Calcium Phosphorus Magnesium Direct Bilirubin AST ALT Alkaline Phosphatase Lactate Dehydrogenase Troponin T C-Reactive Protein Total Protein Albumin Prealbumin Triglycerides Cholesterol LDL Cholesterol Direct HDL Cholesterol Urine pH Urine WBC (Auto) Urine Creatinine Urine Total Protein Fluid Total Protein Vancomycin Trough Rheumatoid Factor Complement C4 Miscellaneous Test Crossmatch 09/19/16 09/19/16 09/19/16 11:25 17:53 23:36 WBC RBC Hgb Hct MCV MCH MCHC RDW Plt Count Lymph % (Auto) [place] % (Auto) Lymph # [place] # Baso # Seg Neutrophils % Seg Neuts % (Manual) Lymphocytes % (Manual) Monocytes % (Manual) Eosinophils % (Manual) Basophils % (Manual) Nucleated RBC % Seg Neutrophils # Seg Neutrophils # Man Lymphocytes # (Manual) Monocytes # (Manual) Eosinophils # (Manual) PT INR Fibrinogen dRVVT Confirm Interp Factor V Activity POC ABG pH POC ABG pCO2 POC ABG pO2 ABG pO2 ABG HCO3 ABG Hemoglobin Oxyhemoglobin Sodium Potassium Chloride Carbon Dioxide BUN Creatinine Glucose POC Glucose 160 H 245 H 121 H Lactic Acid Calcium Phosphorus Magnesium Direct Bilirubin AST ALT Alkaline Phosphatase Lactate Dehydrogenase Troponin T C-Reactive Protein Total Protein Albumin Prealbumin Triglycerides Cholesterol LDL Cholesterol Direct HDL Cholesterol Urine pH Urine WBC (Auto) Urine Creatinine Urine Total Protein Fluid Total Protein Vancomycin Trough Rheumatoid Factor Complement C4 Miscellaneous Test Crossmatch 09/20/16 09/20/16 09/20/16 04:10 04:10 04:10 WBC 17.0 H RBC 3.21 L Hgb 8.2 L Hct 25.5 L MCV MCH 26 L MCHC RDW 20.9 H Plt Count Lymph % (Auto) [place] % (Auto) Lymph # [place] # Baso # Seg Neutrophils % Seg Neuts % (Manual) Lymphocytes % (Manual) Monocytes % (Manual) Eosinophils % (Manual) Basophils % (Manual) Nucleated RBC % Seg Neutrophils # Seg Neutrophils # Man Lymphocytes # (Manual) Monocytes # (Manual) Eosinophils # (Manual) PT INR Fibrinogen dRVVT Confirm Interp Factor V Activity POC ABG pH POC ABG pCO2 POC ABG pO2 ABG pO2 ABG HCO3 ABG Hemoglobin Oxyhemoglobin Sodium Potassium Chloride 111.0 H Carbon Dioxide 16 L BUN 129 H Creatinine 3.7 H Glucose 115 H POC Glucose Lactic Acid Calcium 8.2 L Phosphorus Magnesium Direct Bilirubin AST ALT Alkaline Phosphatase Lactate Dehydrogenase Troponin T C-Reactive Protein Total Protein Albumin Prealbumin Triglycerides 243 H Cholesterol LDL Cholesterol Direct HDL Cholesterol Urine pH Urine WBC (Auto) Urine Creatinine Urine Total Protein Fluid Total Protein Vancomycin Trough Rheumatoid Factor Complement C4 Miscellaneous Test Crossmatch 09/20/16 09/20/16 09/20/16 05:40 11:52 16:50 WBC RBC Hgb Hct MCV MCH MCHC RDW Plt Count Lymph % (Auto) [place] % (Auto) Lymph # [place] # Baso # Seg Neutrophils % Seg Neuts % (Manual) Lymphocytes % (Manual) Monocytes % (Manual) Eosinophils % (Manual) Basophils % (Manual) Nucleated RBC % Seg Neutrophils # Seg Neutrophils # Man Lymphocytes # (Manual) Monocytes # (Manual) Eosinophils # (Manual) PT INR Fibrinogen dRVVT Confirm Interp Factor V Activity POC ABG pH POC ABG pCO2 POC ABG pO2 ABG pO2 ABG HCO3 ABG Hemoglobin Oxyhemoglobin Sodium Potassium Chloride Carbon Dioxide BUN Creatinine Glucose POC Glucose 131 H 183 H 236 H Lactic Acid Calcium Phosphorus Magnesium Direct Bilirubin AST ALT Alkaline Phosphatase Lactate Dehydrogenase Troponin T C-Reactive Protein Total Protein Albumin Prealbumin Triglycerides Cholesterol LDL Cholesterol Direct HDL Cholesterol Urine pH Urine WBC (Auto) Urine Creatinine Urine Total Protein Fluid Total Protein Vancomycin Trough Rheumatoid Factor Complement C4 Miscellaneous Test Crossmatch 09/20/16 09/21/16 09/21/16 23:51 03:30 04:44 WBC RBC Hgb Hct MCV MCH MCHC RDW Plt Count Lymph % (Auto) [place] % (Auto) Lymph # [place] # Baso # Seg Neutrophils % Seg Neuts % (Manual) Lymphocytes % (Manual) Monocytes % (Manual) Eosinophils % (Manual) Basophils % (Manual) Nucleated RBC % Seg Neutrophils # Seg Neutrophils # Man Lymphocytes # (Manual) Monocytes # (Manual) Eosinophils # (Manual) PT INR Fibrinogen dRVVT Confirm Interp Factor V Activity POC ABG pH POC ABG pCO2 POC ABG pO2 ABG pO2 ABG HCO3 ABG Hemoglobin Oxyhemoglobin Sodium Potassium Chloride Carbon Dioxide BUN Creatinine Glucose POC Glucose 114 H 141 H Lactic Acid Calcium Phosphorus Magnesium 2.70 H Direct Bilirubin AST ALT Alkaline Phosphatase Lactate Dehydrogenase Troponin T C-Reactive Protein Total Protein Albumin Prealbumin Triglycerides Cholesterol LDL Cholesterol Direct HDL Cholesterol Urine pH Urine WBC (Auto) Urine Creatinine Urine Total Protein Fluid Total Protein Vancomycin Trough Rheumatoid Factor Complement C4 Miscellaneous Test Crossmatch 09/21/16 09/21/16 09/21/16 07:45 07:45 10:01 WBC 13.8 H RBC 2.94 L Hgb 7.5 L Hct 23.5 L MCV MCH 26 L MCHC RDW 21.2 H Plt Count Lymph % (Auto) 6.9 L [place] % (Auto) 9.4 H Lymph # 0.9 L [place] # 1.3 H Baso # Seg Neutrophils % 83.2 H Seg Neuts % (Manual) Lymphocytes % (Manual) Monocytes % (Manual) Eosinophils % (Manual) Basophils % (Manual) Nucleated RBC % Seg Neutrophils # 11.5 H Seg Neutrophils # Man Lymphocytes # (Manual) Monocytes # (Manual) Eosinophils # (Manual) PT INR Fibrinogen dRVVT Confirm Interp Factor V Activity POC ABG pH 7.308 L POC ABG pCO2 31.9 L POC ABG pO2 148 H ABG pO2 ABG HCO3 ABG Hemoglobin Oxyhemoglobin Sodium 147 H Potassium Chloride 114.2 H Carbon Dioxide 15 L BUN 120 H Creatinine 3.9 H Glucose 156 H POC Glucose Lactic Acid Calcium 8.2 L Phosphorus Magnesium Direct Bilirubin AST ALT Alkaline Phosphatase Lactate Dehydrogenase Troponin T C-Reactive Protein Total Protein Albumin Prealbumin Triglycerides Cholesterol LDL Cholesterol Direct HDL Cholesterol Urine pH Urine WBC (Auto) Urine Creatinine Urine Total Protein Fluid Total Protein Vancomycin Trough Rheumatoid Factor Complement C4 Miscellaneous Test Crossmatch 09/21/16 09/21/16 09/21/16 12:00 12:03 13:00 WBC RBC Hgb Hct MCV MCH MCHC RDW Plt Count Lymph % (Auto) [place] % (Auto) Lymph # [place] # Baso # Seg Neutrophils % Seg Neuts % (Manual) Lymphocytes % (Manual) Monocytes % (Manual) Eosinophils % (Manual) Basophils % (Manual) Nucleated RBC % Seg Neutrophils # Seg Neutrophils # Man Lymphocytes # (Manual) Monocytes # (Manual) Eosinophils # (Manual) PT INR Fibrinogen dRVVT Confirm Interp Factor V Activity POC ABG pH POC ABG pCO2 POC ABG pO2 ABG pO2 ABG HCO3 ABG Hemoglobin Oxyhemoglobin Sodium Potassium Chloride Carbon Dioxide BUN Creatinine Glucose POC Glucose 163 H Lactic Acid Calcium Phosphorus Magnesium Direct Bilirubin AST ALT Alkaline Phosphatase Lactate Dehydrogenase Troponin T C-Reactive Protein Total Protein Albumin Prealbumin Triglycerides Cholesterol LDL Cholesterol Direct HDL Cholesterol Urine pH Urine WBC (Auto) Urine Creatinine 54.8 H Urine Total Protein Fluid Total Protein Vancomycin Trough 2.3 L Rheumatoid Factor Complement C4 Miscellaneous Test Crossmatch 09/21/16 09/21/16 09/22/16 16:51 23:17 06:27 WBC RBC Hgb Hct MCV MCH MCHC RDW Plt Count Lymph % (Auto) [place] % (Auto) Lymph # [place] # Baso # Seg Neutrophils % Seg Neuts % (Manual) Lymphocytes % (Manual) Monocytes % (Manual) Eosinophils % (Manual) Basophils % (Manual) Nucleated RBC % Seg Neutrophils # Seg Neutrophils # Man Lymphocytes # (Manual) Monocytes # (Manual) Eosinophils # (Manual) PT INR Fibrinogen dRVVT Confirm Interp Factor V Activity POC ABG pH POC ABG pCO2 POC ABG pO2 ABG pO2 ABG HCO3 ABG Hemoglobin Oxyhemoglobin Sodium Potassium Chloride Carbon Dioxide BUN Creatinine Glucose POC Glucose 206 H 114 H 115 H Lactic Acid Calcium Phosphorus Magnesium Direct Bilirubin AST ALT Alkaline Phosphatase Lactate Dehydrogenase Troponin T C-Reactive Protein Total Protein Albumin Prealbumin Triglycerides Cholesterol LDL Cholesterol Direct HDL Cholesterol Urine pH Urine WBC (Auto) Urine Creatinine Urine Total Protein Fluid Total Protein Vancomycin Trough Rheumatoid Factor Complement C4 Miscellaneous Test Crossmatch 09/22/16 09/22/16 09/22/16 07:50 07:50 12:00 WBC 17.8 H RBC 3.04 L Hgb 8.0 L Hct 24.7 L MCV MCH 26 L MCHC RDW 21.6 H Plt Count Lymph % (Auto) [place] % (Auto) Lymph # [place] # Baso # Seg Neutrophils % Seg Neuts % (Manual) Lymphocytes % (Manual) Monocytes % (Manual) Eosinophils % (Manual) Basophils % (Manual) Nucleated RBC % Seg Neutrophils # Seg Neutrophils # Man Lymphocytes # (Manual) Monocytes # (Manual) Eosinophils # (Manual) PT INR Fibrinogen dRVVT Confirm Interp Factor V Activity POC ABG pH POC ABG pCO2 POC ABG pO2 ABG pO2 ABG HCO3 ABG Hemoglobin Oxyhemoglobin Sodium 150 H Potassium Chloride 118.2 H Carbon Dioxide 14 L BUN 111 H Creatinine 3.7 H Glucose 157 H POC Glucose 183 H Lactic Acid Calcium Phosphorus Magnesium Direct Bilirubin AST ALT Alkaline Phosphatase Lactate Dehydrogenase Troponin T C-Reactive Protein Total Protein Albumin Prealbumin Triglycerides Cholesterol LDL Cholesterol Direct HDL Cholesterol Urine pH Urine WBC (Auto) Urine Creatinine Urine Total Protein Fluid Total Protein Vancomycin Trough Rheumatoid Factor Complement C4 Miscellaneous Test Crossmatch 09/22/16 09/22/16 09/23/16 17:29 23:10 05:00 WBC 19.2 H RBC 3.13 L Hgb 8.0 L Hct 25.2 L MCV MCH 26 L MCHC RDW 22.1 H Plt Count Lymph % (Auto) [place] % (Auto) Lymph # [place] # Baso # Seg Neutrophils % Seg Neuts % (Manual) 92.0 H Lymphocytes % (Manual) 3.0 L Monocytes % (Manual) Eosinophils % (Manual) Basophils % (Manual) Nucleated RBC % Seg Neutrophils # Seg Neutrophils # Man 17.7 H Lymphocytes # (Manual) 0.6 L Monocytes # (Manual) Eosinophils # (Manual) PT INR Fibrinogen dRVVT Confirm Interp Factor V Activity POC ABG pH POC ABG pCO2 POC ABG pO2 ABG pO2 ABG HCO3 ABG Hemoglobin Oxyhemoglobin Sodium Potassium Chloride Carbon Dioxide BUN Creatinine Glucose POC Glucose 197 H 169 H Lactic Acid Calcium Phosphorus Magnesium Direct Bilirubin AST ALT Alkaline Phosphatase Lactate Dehydrogenase Troponin T C-Reactive Protein Total Protein Albumin Prealbumin Triglycerides Cholesterol LDL Cholesterol Direct HDL Cholesterol Urine pH Urine WBC (Auto) Urine Creatinine Urine Total Protein Fluid Total Protein Vancomycin Trough Rheumatoid Factor Complement C4 Miscellaneous Test Crossmatch 09/23/16 09/23/16 09/23/16 05:00 05:00 05:10 WBC RBC Hgb Hct MCV MCH MCHC RDW Plt Count Lymph % (Auto) [place] % (Auto) Lymph # [place] # Baso # Seg Neutrophils % Seg Neuts % (Manual) Lymphocytes % (Manual) Monocytes % (Manual) Eosinophils % (Manual) Basophils % (Manual) Nucleated RBC % Seg Neutrophils # Seg Neutrophils # Man Lymphocytes # (Manual) Monocytes # (Manual) Eosinophils # (Manual) PT INR Fibrinogen dRVVT Confirm Interp Factor V Activity POC ABG pH POC ABG pCO2 POC ABG pO2 ABG pO2 ABG HCO3 ABG Hemoglobin Oxyhemoglobin Sodium 147 H Potassium 3.2 L Chloride 115.7 H Carbon Dioxide 13 L BUN 111 H Creatinine 3.8 H Glucose 194 H POC Glucose 188 H Lactic Acid Calcium 7.3 L D Phosphorus Magnesium Direct Bilirubin AST ALT Alkaline Phosphatase Lactate Dehydrogenase Troponin T C-Reactive Protein 3.20 H Total Protein Albumin Prealbumin Triglycerides Cholesterol LDL Cholesterol Direct HDL Cholesterol Urine pH Urine WBC (Auto) Urine Creatinine Urine Total Protein Fluid Total Protein Vancomycin Trough Rheumatoid Factor Complement C4 Miscellaneous Test Crossmatch 09/23/16 09/23/16 09/23/16 11:37 12:29 18:01 WBC RBC Hgb Hct MCV MCH MCHC RDW Plt Count Lymph % (Auto) [place] % (Auto) Lymph # [place] # Baso # Seg Neutrophils % Seg Neuts % (Manual) Lymphocytes % (Manual) Monocytes % (Manual) Eosinophils % (Manual) Basophils % (Manual) Nucleated RBC % Seg Neutrophils # Seg Neutrophils # Man Lymphocytes # (Manual) Monocytes # (Manual) Eosinophils # (Manual) PT INR Fibrinogen dRVVT Confirm Interp Factor V Activity POC ABG pH POC ABG pCO2 18.9 L POC ABG pO2 143 H ABG pO2 ABG HCO3 ABG Hemoglobin Oxyhemoglobin Sodium Potassium Chloride Carbon Dioxide BUN Creatinine Glucose POC Glucose 153 H 108 H Lactic Acid Calcium Phosphorus Magnesium Direct Bilirubin AST ALT Alkaline Phosphatase Lactate Dehydrogenase Troponin T C-Reactive Protein Total Protein Albumin Prealbumin Triglycerides Cholesterol LDL Cholesterol Direct HDL Cholesterol Urine pH Urine WBC (Auto) Urine Creatinine Urine Total Protein Fluid Total Protein Vancomycin Trough Rheumatoid Factor Complement C4 Miscellaneous Test Crossmatch 09/23/16 09/23/16 09/24/16 21:19 23:43 05:16 WBC RBC Hgb Hct MCV MCH MCHC RDW Plt Count Lymph % (Auto) [place] % (Auto) Lymph # [place] # Baso # Seg Neutrophils % Seg Neuts % (Manual) Lymphocytes % (Manual) Monocytes % (Manual) Eosinophils % (Manual) Basophils % (Manual) Nucleated RBC % Seg Neutrophils # Seg Neutrophils # Man Lymphocytes # (Manual) Monocytes # (Manual) Eosinophils # (Manual) PT INR Fibrinogen dRVVT Confirm Interp Factor V Activity POC ABG pH POC ABG pCO2 17.3 L POC ABG pO2 112 H ABG pO2 ABG HCO3 ABG Hemoglobin Oxyhemoglobin Sodium Potassium Chloride Carbon Dioxide BUN Creatinine Glucose POC Glucose 143 H 164 H Lactic Acid Calcium Phosphorus Magnesium Direct Bilirubin AST ALT Alkaline Phosphatase Lactate Dehydrogenase Troponin T C-Reactive Protein Total Protein Albumin Prealbumin Triglycerides Cholesterol LDL Cholesterol Direct HDL Cholesterol Urine pH Urine WBC (Auto) Urine Creatinine Urine Total Protein Fluid Total Protein Vancomycin Trough Rheumatoid Factor Complement C4 Miscellaneous Test Crossmatch 09/24/16 09/24/16 09/24/16 05:21 11:58 17:06 WBC RBC Hgb Hct MCV MCH MCHC RDW Plt Count Lymph % (Auto) [place] % (Auto) Lymph # [place] # Baso # Seg Neutrophils % Seg Neuts % (Manual) Lymphocytes % (Manual) Monocytes % (Manual) Eosinophils % (Manual) Basophils % (Manual) Nucleated RBC % Seg Neutrophils # Seg Neutrophils # Man Lymphocytes # (Manual) Monocytes # (Manual) Eosinophils # (Manual) PT INR Fibrinogen dRVVT Confirm Interp Factor V Activity POC ABG pH POC ABG pCO2 POC ABG pO2 ABG pO2 ABG HCO3 ABG Hemoglobin Oxyhemoglobin Sodium Potassium Chloride Carbon Dioxide 10 L BUN 103 H Creatinine 4.3 H Glucose 163 H POC Glucose 173 H 167 H Lactic Acid Calcium 6.5 L Phosphorus Magnesium Direct Bilirubin AST ALT Alkaline Phosphatase Lactate Dehydrogenase Troponin T C-Reactive Protein Total Protein Albumin Prealbumin Triglycerides Cholesterol LDL Cholesterol Direct HDL Cholesterol Urine pH Urine WBC (Auto) Urine Creatinine Urine Total Protein Fluid Total Protein Vancomycin Trough Rheumatoid Factor Complement C4 Miscellaneous Test Crossmatch 09/24/16 09/24/16 09/24/16 20:15 21:02 23:48 WBC RBC Hgb Hct MCV MCH MCHC RDW Plt Count Lymph % (Auto) [place] % (Auto) Lymph # [place] # Baso # Seg Neutrophils % Seg Neuts % (Manual) Lymphocytes % (Manual) Monocytes % (Manual) Eosinophils % (Manual) Basophils % (Manual) Nucleated RBC % Seg Neutrophils # Seg Neutrophils # Man Lymphocytes # (Manual) Monocytes # (Manual) Eosinophils # (Manual) PT INR Fibrinogen dRVVT Confirm Interp Factor V Activity POC ABG pH 7.288 L POC ABG pCO2 30.2 L 21.5 L POC ABG pO2 32 L 39 L ABG pO2 ABG HCO3 ABG Hemoglobin Oxyhemoglobin Sodium Potassium Chloride Carbon Dioxide BUN Creatinine Glucose POC Glucose 109 H Lactic Acid Calcium Phosphorus Magnesium Direct Bilirubin AST ALT Alkaline Phosphatase Lactate Dehydrogenase Troponin T C-Reactive Protein Total Protein Albumin Prealbumin Triglycerides Cholesterol LDL Cholesterol Direct HDL Cholesterol Urine pH Urine WBC (Auto) Urine Creatinine Urine Total Protein Fluid Total Protein Vancomycin Trough Rheumatoid Factor Complement C4 Miscellaneous Test Crossmatch 09/25/16 09/25/16 09/25/16 04:20 04:20 04:20 WBC RBC 2.58 L Hgb 7.0 L Hct 21.0 L MCV MCH 27 L MCHC RDW 23.8 H Plt Count Lymph % (Auto) [place] % (Auto) Lymph # [place] # Baso # Seg Neutrophils % Seg Neuts % (Manual) Lymphocytes % (Manual) 12.0 L Monocytes % (Manual) Eosinophils % (Manual) 7.0 H Basophils % (Manual) 2.0 H Nucleated RBC % Seg Neutrophils # Seg Neutrophils # Man Lymphocytes # (Manual) 0.9 L Monocytes # (Manual) Eosinophils # (Manual) 0.5 H PT INR Fibrinogen dRVVT Confirm Interp Factor V Activity POC ABG pH POC ABG pCO2 POC ABG pO2 ABG pO2 ABG HCO3 ABG Hemoglobin Oxyhemoglobin Sodium Potassium Chloride Carbon Dioxide 15 L BUN 72 H Creatinine 3.8 H Glucose POC Glucose Lactic Acid Calcium 6.0 L Phosphorus 4.60 H Magnesium 1.60 L Direct Bilirubin AST ALT Alkaline Phosphatase Lactate Dehydrogenase Troponin T C-Reactive Protein Total Protein Albumin Prealbumin Triglycerides Cholesterol LDL Cholesterol Direct HDL Cholesterol Urine pH Urine WBC (Auto) Urine Creatinine Urine Total Protein Fluid Total Protein Vancomycin Trough Rheumatoid Factor Complement C4 Miscellaneous Test Crossmatch 09/25/16 09/25/16 09/25/16 04:57 08:02 10:30 WBC RBC Hgb Hct MCV MCH MCHC RDW Plt Count Lymph % (Auto) [place] % (Auto) Lymph # [place] # Baso # Seg Neutrophils % Seg Neuts % (Manual) Lymphocytes % (Manual) Monocytes % (Manual) Eosinophils % (Manual) Basophils % (Manual) Nucleated RBC % Seg Neutrophils # Seg Neutrophils # Man Lymphocytes # (Manual) Monocytes # (Manual) Eosinophils # (Manual) PT INR Fibrinogen dRVVT Confirm Interp Factor V Activity POC ABG pH POC ABG pCO2 24.7 L POC ABG pO2 152 H ABG pO2 ABG HCO3 ABG Hemoglobin Oxyhemoglobin Sodium Potassium Chloride Carbon Dioxide BUN Creatinine Glucose POC Glucose 113 H Lactic Acid Calcium Phosphorus Magnesium Direct Bilirubin AST ALT Alkaline Phosphatase Lactate Dehydrogenase Troponin T C-Reactive Protein Total Protein Albumin Prealbumin Triglycerides Cholesterol LDL Cholesterol Direct HDL Cholesterol Urine pH Urine WBC (Auto) Urine Creatinine Urine Total Protein Fluid Total Protein Vancomycin Trough Rheumatoid Factor Complement C4 Miscellaneous Test Crossmatch See Detail 08/08/0609/25/16 09/25/16 12:05 17:44 23:47 WBC RBC Hgb Hct MCV MCH MCHC RDW Plt Count Lymph % (Auto) [place] % (Auto) Lymph # [place] # Baso # Seg Neutrophils % Seg Neuts % (Manual) Lymphocytes % (Manual) Monocytes % (Manual) Eosinophils % (Manual) Basophils % (Manual) Nucleated RBC % Seg Neutrophils # Seg Neutrophils # Man Lymphocytes # (Manual) Monocytes # (Manual) Eosinophils # (Manual) PT INR Fibrinogen dRVVT Confirm Interp Factor V Activity POC ABG pH POC ABG pCO2 POC ABG pO2 ABG pO2 ABG HCO3 ABG Hemoglobin Oxyhemoglobin Sodium Potassium Chloride Carbon Dioxide BUN Creatinine Glucose POC Glucose 117 H 119 H 150 H Lactic Acid Calcium Phosphorus Magnesium Direct Bilirubin AST ALT Alkaline Phosphatase Lactate Dehydrogenase Troponin T C-Reactive Protein Total Protein Albumin Prealbumin Triglycerides Cholesterol LDL Cholesterol Direct HDL Cholesterol Urine pH Urine WBC (Auto) Urine Creatinine Urine Total Protein Fluid Total Protein Vancomycin Trough Rheumatoid Factor Complement C4 Miscellaneous Test Crossmatch 09/26/16 09/26/16 09/26/16 04:25 04:25 04:25 WBC RBC 2.65 L Hgb 7.4 L Hct 21.6 L MCV MCH MCHC RDW 22.5 H Plt Count Lymph % (Auto) [place] % (Auto) Lymph # [place] # Baso # Seg Neutrophils % Seg Neuts % (Manual) Lymphocytes % (Manual) 6.0 L Monocytes % (Manual) Eosinophils % (Manual) 11.0 H Basophils % (Manual) Nucleated RBC % Seg Neutrophils # Seg Neutrophils # Man Lymphocytes # (Manual) 0.4 L Monocytes # (Manual) Eosinophils # (Manual) 0.6 H PT INR Fibrinogen dRVVT Confirm Interp Factor V Activity POC ABG pH POC ABG pCO2 POC ABG pO2 ABG pO2 ABG HCO3 ABG Hemoglobin Oxyhemoglobin Sodium Potassium Chloride 97.0 L Carbon Dioxide 19 L BUN 43 H Creatinine 2.6 H Glucose 130 H POC Glucose Lactic Acid 4.40 H* Calcium 6.7 L Phosphorus Magnesium Direct Bilirubin AST ALT Alkaline Phosphatase Lactate Dehydrogenase Troponin T C-Reactive Protein Total Protein Albumin Prealbumin Triglycerides Cholesterol LDL Cholesterol Direct HDL Cholesterol Urine pH Urine WBC (Auto) Urine Creatinine Urine Total Protein Fluid Total Protein Vancomycin Trough Rheumatoid Factor Complement C4 Miscellaneous Test Crossmatch 09/26/16 09/26/16 09/26/16 05:20 11:44 12:12 WBC RBC Hgb Hct MCV MCH MCHC RDW Plt Count Lymph % (Auto) [place] % (Auto) Lymph # [place] # Baso # Seg Neutrophils % Seg Neuts % (Manual) Lymphocytes % (Manual) Monocytes % (Manual) Eosinophils % (Manual) Basophils % (Manual) Nucleated RBC % Seg Neutrophils # Seg Neutrophils # Man Lymphocytes # (Manual) Monocytes # (Manual) Eosinophils # (Manual) PT INR Fibrinogen dRVVT Confirm Interp Factor V Activity POC ABG pH POC ABG pCO2 27.0 L POC ABG pO2 69 L ABG pO2 ABG HCO3 ABG Hemoglobin Oxyhemoglobin Sodium Potassium Chloride Carbon Dioxide BUN Creatinine Glucose POC Glucose 121 H 128 H Lactic Acid Calcium Phosphorus Magnesium Direct Bilirubin AST ALT Alkaline Phosphatase Lactate Dehydrogenase Troponin T C-Reactive Protein Total Protein Albumin Prealbumin Triglycerides Cholesterol LDL Cholesterol Direct HDL Cholesterol Urine pH Urine WBC (Auto) Urine Creatinine Urine Total Protein Fluid Total Protein Vancomycin Trough Rheumatoid Factor Complement C4 Miscellaneous Test Crossmatch 09/26/16 09/26/16 09/27/16 18:31 23:40 08:20 WBC RBC Hgb Hct MCV MCH MCHC RDW Plt Count Lymph % (Auto) [place] % (Auto) Lymph # [place] # Baso # Seg Neutrophils % Seg Neuts % (Manual) Lymphocytes % (Manual) Monocytes % (Manual) Eosinophils % (Manual) Basophils % (Manual) Nucleated RBC % Seg Neutrophils # Seg Neutrophils # Man Lymphocytes # (Manual) Monocytes # (Manual) Eosinophils # (Manual) PT INR Fibrinogen dRVVT Confirm Interp Factor V Activity POC ABG pH POC ABG pCO2 POC ABG pO2 ABG pO2 ABG HCO3 ABG Hemoglobin Oxyhemoglobin Sodium Potassium Chloride Carbon Dioxide BUN Creatinine Glucose POC Glucose 120 H 133 H Lactic Acid 4.10 H* Calcium Phosphorus Magnesium Direct Bilirubin AST ALT Alkaline Phosphatase Lactate Dehydrogenase Troponin T C-Reactive Protein Total Protein Albumin Prealbumin Triglycerides Cholesterol LDL Cholesterol Direct HDL Cholesterol Urine pH Urine WBC (Auto) Urine Creatinine Urine Total Protein Fluid Total Protein Vancomycin Trough Rheumatoid Factor Complement C4 Miscellaneous Test Crossmatch 09/27/16 09/27/16 09/27/16 11:23 15:00 18:15 WBC RBC Hgb Hct MCV MCH MCHC RDW Plt Count Lymph % (Auto) [place] % (Auto) Lymph # [place] # Baso # Seg Neutrophils % Seg Neuts % (Manual) Lymphocytes % (Manual) Monocytes % (Manual) Eosinophils % (Manual) Basophils % (Manual) Nucleated RBC % Seg Neutrophils # Seg Neutrophils # Man Lymphocytes # (Manual) Monocytes # (Manual) Eosinophils # (Manual) PT INR Fibrinogen dRVVT Confirm Interp Factor V Activity POC ABG pH 7.459 H POC ABG pCO2 27.1 L POC ABG pO2 140 H ABG pO2 ABG HCO3 ABG Hemoglobin Oxyhemoglobin Sodium Potassium Chloride Carbon Dioxide BUN Creatinine Glucose POC Glucose 114 H 127 H Lactic Acid Calcium Phosphorus Magnesium Direct Bilirubin AST ALT Alkaline Phosphatase Lactate Dehydrogenase Troponin T C-Reactive Protein Total Protein Albumin Prealbumin Triglycerides Cholesterol LDL Cholesterol Direct HDL Cholesterol Urine pH Urine WBC (Auto) Urine Creatinine Urine Total Protein Fluid Total Protein Vancomycin Trough Rheumatoid Factor Complement C4 Miscellaneous Test Crossmatch 09/27/16 09/27/16 09/28/16 Unknown Unknown 03:45 WBC RBC 2.49 L Hgb 6.8 L Hct 20.7 L MCV MCH 27 L MCHC RDW 22.1 H Plt Count Lymph % (Auto) [place] % (Auto) Lymph # [place] # Baso # Seg Neutrophils % Seg Neuts % (Manual) 32.0 L Lymphocytes % (Manual) 12.0 L Monocytes % (Manual) 11.0 H Eosinophils % (Manual) 10.0 H Basophils % (Manual) Nucleated RBC % Seg Neutrophils # Seg Neutrophils # Man Lymphocytes # (Manual) 1.0 L Monocytes # (Manual) 0.9 H Eosinophils # (Manual) 0.8 H PT INR Fibrinogen dRVVT Confirm Interp Factor V Activity POC ABG pH POC ABG pCO2 POC ABG pO2 ABG pO2 ABG HCO3 ABG Hemoglobin Oxyhemoglobin Sodium 135 L 135 L Potassium 3.5 L Chloride 93.6 L 94.4 L Carbon Dioxide 17 L 21 L BUN 45 H 28 H Creatinine 3.3 H 2.5 H Glucose 106 H POC Glucose Lactic Acid Calcium 7.3 L 7.1 L Phosphorus Magnesium Direct Bilirubin AST ALT Alkaline Phosphatase Lactate Dehydrogenase Troponin T C-Reactive Protein Total Protein Albumin Prealbumin Triglycerides Cholesterol LDL Cholesterol Direct HDL Cholesterol Urine pH Urine WBC (Auto) Urine Creatinine Urine Total Protein Fluid Total Protein Vancomycin Trough Rheumatoid Factor Complement C4 Miscellaneous Test Crossmatch 09/28/16 09/28/16 09/28/16 03:45 07:25 11:58 WBC 13.3 H RBC 3.01 L Hgb 8.4 L Hct 25.0 L MCV MCH MCHC RDW 20.5 H Plt Count 128 L Lymph % (Auto) [place] % (Auto) Lymph # [place] # Baso # Seg Neutrophils % Seg Neuts % (Manual) Lymphocytes % (Manual) 7.0 L Monocytes % (Manual) Eosinophils % (Manual) 6.0 H Basophils % (Manual) Nucleated RBC % Seg Neutrophils # Seg Neutrophils # Man Lymphocytes # (Manual) 0.9 L Monocytes # (Manual) Eosinophils # (Manual) 0.8 H PT INR Fibrinogen dRVVT Confirm Interp Factor V Activity POC ABG pH POC ABG pCO2 POC ABG pO2 ABG pO2 ABG HCO3 ABG Hemoglobin Oxyhemoglobin Sodium Potassium Chloride Carbon Dioxide BUN Creatinine Glucose POC Glucose 121 H Lactic Acid 4.50 H* Calcium Phosphorus Magnesium Direct Bilirubin AST ALT Alkaline Phosphatase Lactate Dehydrogenase Troponin T C-Reactive Protein Total Protein Albumin Prealbumin Triglycerides Cholesterol LDL Cholesterol Direct HDL Cholesterol Urine pH Urine WBC (Auto) Urine Creatinine Urine Total Protein Fluid Total Protein Vancomycin Trough Rheumatoid Factor Complement C4 Miscellaneous Test Crossmatch 09/29/16 09/29/16 09/29/16 06:45 06:45 06:45 WBC 14.9 H RBC 2.74 L Hgb 7.6 L Hct 23.2 L MCV MCH MCHC RDW 20.5 H Plt Count 81 L Lymph % (Auto) [place] % (Auto) Lymph # [place] # Baso # Seg Neutrophils % Seg Neuts % (Manual) 81.0 H Lymphocytes % (Manual) 4.0 L Monocytes % (Manual) Eosinophils % (Manual) Basophils % (Manual) Nucleated RBC % Seg Neutrophils # Seg Neutrophils # Man 12.1 H Lymphocytes # (Manual) 0.6 L Monocytes # (Manual) Eosinophils # (Manual) PT INR Fibrinogen dRVVT Confirm Interp Factor V Activity POC ABG pH POC ABG pCO2 POC ABG pO2 ABG pO2 ABG HCO3 ABG Hemoglobin Oxyhemoglobin Sodium 133 L Potassium 3.4 L Chloride 92.5 L Carbon Dioxide 21 L BUN 33 H Creatinine 3.0 H Glucose POC Glucose Lactic Acid Calcium 6.6 L Phosphorus Magnesium 1.40 L Direct Bilirubin 0.9 H AST ALT Alkaline Phosphatase Lactate Dehydrogenase Troponin T C-Reactive Protein Total Protein 4.3 L Albumin 1.3 L Prealbumin Triglycerides Cholesterol LDL Cholesterol Direct HDL Cholesterol Urine pH Urine WBC (Auto) Urine Creatinine Urine Total Protein Fluid Total Protein Vancomycin Trough Rheumatoid Factor Complement C4 Miscellaneous Test Crossmatch 09/29/16 09/29/16 09/30/16 17:52 20:12 00:07 WBC RBC Hgb Hct MCV MCH MCHC RDW Plt Count Lymph % (Auto) [place] % (Auto) Lymph # [place] # Baso # Seg Neutrophils % Seg Neuts % (Manual) Lymphocytes % (Manual) Monocytes % (Manual) Eosinophils % (Manual) Basophils % (Manual) Nucleated RBC % Seg Neutrophils # Seg Neutrophils # Man Lymphocytes # (Manual) Monocytes # (Manual) Eosinophils # (Manual) PT INR Fibrinogen dRVVT Confirm Interp Factor V Activity POC ABG pH POC ABG pCO2 POC ABG pO2 ABG pO2 ABG HCO3 ABG Hemoglobin Oxyhemoglobin Sodium Potassium Chloride Carbon Dioxide BUN Creatinine Glucose POC Glucose 50 L 51 L Lactic Acid Calcium Phosphorus Magnesium Direct Bilirubin AST ALT Alkaline Phosphatase Lactate Dehydrogenase Troponin T 0.204 H* C-Reactive Protein Total Protein Albumin Prealbumin Triglycerides Cholesterol 31 L LDL Cholesterol Direct 4 L HDL Cholesterol 3 L Urine pH Urine WBC (Auto) Urine Creatinine Urine Total Protein Fluid Total Protein Vancomycin Trough Rheumatoid Factor Complement C4 Miscellaneous Test Crossmatch 09/30/16 09/30/16 09/30/16 01:30 05:15 06:10 WBC RBC Hgb Hct MCV MCH MCHC RDW Plt Count Lymph % (Auto) [place] % (Auto) Lymph # [place] # Baso # Seg Neutrophils % Seg Neuts % (Manual) Lymphocytes % (Manual) Monocytes % (Manual) Eosinophils % (Manual) Basophils % (Manual) Nucleated RBC % Seg Neutrophils # Seg Neutrophils # Man Lymphocytes # (Manual) Monocytes # (Manual) Eosinophils # (Manual) PT INR Fibrinogen dRVVT Confirm Interp Factor V Activity POC ABG pH POC ABG pCO2 POC ABG pO2 ABG pO2 ABG HCO3 ABG Hemoglobin Oxyhemoglobin Sodium 133 L Potassium 3.2 L Chloride 93.2 L Carbon Dioxide 19 L BUN 36 H Creatinine 3.2 H Glucose 104 H POC Glucose 167 H 146 H Lactic Acid Calcium 6.4 L Phosphorus Magnesium 1.60 L Direct Bilirubin AST ALT Alkaline Phosphatase Lactate Dehydrogenase Troponin T C-Reactive Protein Total Protein Albumin Prealbumin Triglycerides Cholesterol LDL Cholesterol Direct HDL Cholesterol Urine pH Urine WBC (Auto) Urine Creatinine Urine Total Protein Fluid Total Protein Vancomycin Trough Rheumatoid Factor Complement C4 Miscellaneous Test Crossmatch 09/30/16 09/30/16 09/30/16 11:26 13:39 18:38 WBC RBC Hgb Hct MCV MCH MCHC RDW Plt Count Lymph % (Auto) [place] % (Auto) Lymph # [place] # Baso # Seg Neutrophils % Seg Neuts % (Manual) Lymphocytes % (Manual) Monocytes % (Manual) Eosinophils % (Manual) Basophils % (Manual) Nucleated RBC % Seg Neutrophils # Seg Neutrophils # Man Lymphocytes # (Manual) Monocytes # (Manual) Eosinophils # (Manual) PT INR Fibrinogen dRVVT Confirm Interp Factor V Activity POC ABG pH 7.479 H POC ABG pCO2 29.8 L POC ABG pO2 117 H ABG pO2 ABG HCO3 ABG Hemoglobin Oxyhemoglobin Sodium Potassium Chloride Carbon Dioxide BUN Creatinine Glucose POC Glucose 140 H 122 H Lactic Acid Calcium Phosphorus Magnesium Direct Bilirubin AST ALT Alkaline Phosphatase Lactate Dehydrogenase Troponin T C-Reactive Protein Total Protein Albumin Prealbumin Triglycerides Cholesterol LDL Cholesterol Direct HDL Cholesterol Urine pH Urine WBC (Auto) Urine Creatinine Urine Total Protein Fluid Total Protein Vancomycin Trough Rheumatoid Factor Complement C4 Miscellaneous Test Crossmatch 10/01/16 10/01/16 10/01/16 06:00 06:00 12:37 WBC 12.6 H RBC 2.75 L Hgb 7.3 L Hct 23.3 L MCV MCH 27 L MCHC RDW 20.6 H Plt Count 72 L Lymph % (Auto) [place] % (Auto) Lymph # [place] # Baso # Seg Neutrophils % Seg Neuts % (Manual) 31.0 L Lymphocytes % (Manual) 8.0 L Monocytes % (Manual) Eosinophils % (Manual) Basophils % (Manual) Nucleated RBC % 3.0 H Seg Neutrophils # Seg Neutrophils # Man Lymphocytes # (Manual) 1.0 L Monocytes # (Manual) Eosinophils # (Manual) PT INR Fibrinogen dRVVT Confirm Interp Factor V Activity POC ABG pH POC ABG pCO2 POC ABG pO2 ABG pO2 ABG HCO3 ABG Hemoglobin Oxyhemoglobin Sodium 127 L Potassium Chloride 86.8 L Carbon Dioxide 20 L BUN 42 H Creatinine 3.5 H Glucose POC Glucose 65 L Lactic Acid Calcium 7.0 L Phosphorus Magnesium Direct Bilirubin AST ALT Alkaline Phosphatase Lactate Dehydrogenase Troponin T C-Reactive Protein Total Protein Albumin Prealbumin Triglycerides Cholesterol LDL Cholesterol Direct HDL Cholesterol Urine pH Urine WBC (Auto) Urine Creatinine Urine Total Protein Fluid Total Protein Vancomycin Trough Rheumatoid Factor Complement C4 Miscellaneous Test Crossmatch 10/01/16 10/01/16 10/02/16 17:39 23:32 00:59 WBC RBC Hgb Hct MCV MCH MCHC RDW Plt Count Lymph % (Auto) [place] % (Auto) Lymph # [place] # Baso # Seg Neutrophils % Seg Neuts % (Manual) Lymphocytes % (Manual) Monocytes % (Manual) Eosinophils % (Manual) Basophils % (Manual) Nucleated RBC % Seg Neutrophils # Seg Neutrophils # Man Lymphocytes # (Manual) Monocytes # (Manual) Eosinophils # (Manual) PT INR Fibrinogen dRVVT Confirm Interp Factor V Activity POC ABG pH POC ABG pCO2 POC ABG pO2 ABG pO2 ABG HCO3 ABG Hemoglobin Oxyhemoglobin Sodium Potassium Chloride Carbon Dioxide BUN Creatinine Glucose POC Glucose 107 H 52 L 145 H Lactic Acid Calcium Phosphorus Magnesium Direct Bilirubin AST ALT Alkaline Phosphatase Lactate Dehydrogenase Troponin T C-Reactive Protein Total Protein Albumin Prealbumin Triglycerides Cholesterol LDL Cholesterol Direct HDL Cholesterol Urine pH Urine WBC (Auto) Urine Creatinine Urine Total Protein Fluid Total Protein Vancomycin Trough Rheumatoid Factor Complement C4 Miscellaneous Test Crossmatch 10/02/16 10/02/16 10/02/16 10:30 10:50 10:50 WBC 14.7 H RBC 2.76 L Hgb 7.4 L Hct 23.6 L MCV MCH 27 L MCHC RDW 20.2 H Plt Count 79 L Lymph % (Auto) [place] % (Auto) Lymph # [place] # Baso # Seg Neutrophils % Seg Neuts % (Manual) 86.0 H Lymphocytes % (Manual) 6.0 L Monocytes % (Manual) Eosinophils % (Manual) Basophils % (Manual) Nucleated RBC % Seg Neutrophils # Seg Neutrophils # Man 12.6 H Lymphocytes # (Manual) 0.9 L Monocytes # (Manual) Eosinophils # (Manual) PT INR Fibrinogen dRVVT Confirm Interp Factor V Activity POC ABG pH 7.486 H POC ABG pCO2 30.1 L POC ABG pO2 108 H ABG pO2 ABG HCO3 ABG Hemoglobin Oxyhemoglobin Sodium 131 L Potassium 3.4 L Chloride 89.9 L Carbon Dioxide BUN 26 H Creatinine 2.6 H Glucose POC Glucose Lactic Acid Calcium 7.0 L Phosphorus Magnesium Direct Bilirubin AST ALT Alkaline Phosphatase Lactate Dehydrogenase Troponin T C-Reactive Protein Total Protein Albumin Prealbumin Triglycerides Cholesterol LDL Cholesterol Direct HDL Cholesterol Urine pH Urine WBC (Auto) Urine Creatinine Urine Total Protein Fluid Total Protein Vancomycin Trough Rheumatoid Factor Complement C4 Miscellaneous Test Crossmatch 10/02/16 10/03/16 10/03/16 23:45 00:45 05:10 WBC 12.9 H RBC 2.77 L Hgb 7.6 L Hct 23.7 L MCV MCH 27 L MCHC RDW 19.7 H Plt Count 89 L Lymph % (Auto) [place] % (Auto) Lymph # [place] # Baso # Seg Neutrophils % Seg Neuts % (Manual) Lymphocytes % (Manual) 8.0 L Monocytes % (Manual) Eosinophils % (Manual) Basophils % (Manual) Nucleated RBC % Seg Neutrophils # 11.9 H Seg Neutrophils # Man Lymphocytes # (Manual) 1.0 L Monocytes # (Manual) Eosinophils # (Manual) PT INR Fibrinogen dRVVT Confirm Interp Factor V Activity POC ABG pH POC ABG pCO2 POC ABG pO2 ABG pO2 ABG HCO3 ABG Hemoglobin Oxyhemoglobin Sodium Potassium Chloride Carbon Dioxide BUN Creatinine Glucose POC Glucose 55 L 199 H Lactic Acid Calcium Phosphorus Magnesium Direct Bilirubin AST ALT Alkaline Phosphatase Lactate Dehydrogenase Troponin T C-Reactive Protein Total Protein Albumin Prealbumin Triglycerides Cholesterol LDL Cholesterol Direct HDL Cholesterol Urine pH Urine WBC (Auto) Urine Creatinine Urine Total Protein Fluid Total Protein Vancomycin Trough Rheumatoid Factor Complement C4 Miscellaneous Test Crossmatch 10/03/16 10/03/16 10/03/16 05:10 12:14 13:18 WBC RBC Hgb Hct MCV MCH MCHC RDW Plt Count Lymph % (Auto) [place] % (Auto) Lymph # [place] # Baso # Seg Neutrophils % Seg Neuts % (Manual) Lymphocytes % (Manual) Monocytes % (Manual) Eosinophils % (Manual) Basophils % (Manual) Nucleated RBC % Seg Neutrophils # Seg Neutrophils # Man Lymphocytes # (Manual) Monocytes # (Manual) Eosinophils # (Manual) PT INR Fibrinogen dRVVT Confirm Interp Factor V Activity POC ABG pH POC ABG pCO2 POC ABG pO2 ABG pO2 ABG HCO3 ABG Hemoglobin Oxyhemoglobin Sodium 129 L Potassium 3.3 L Chloride 88.8 L Carbon Dioxide 20 L BUN 29 H Creatinine 2.8 H Glucose POC Glucose 68 L 127 H Lactic Acid Calcium 7.2 L Phosphorus Magnesium Direct Bilirubin AST ALT Alkaline Phosphatase Lactate Dehydrogenase Troponin T C-Reactive Protein Total Protein Albumin Prealbumin Triglycerides Cholesterol LDL Cholesterol Direct HDL Cholesterol Urine pH Urine WBC (Auto) Urine Creatinine Urine Total Protein Fluid Total Protein Vancomycin Trough Rheumatoid Factor Complement C4 Miscellaneous Test Crossmatch 10/03/16 10/03/16 10/03/16 14:42 18:21 19:09 WBC RBC Hgb Hct MCV MCH MCHC RDW Plt Count Lymph % (Auto) [place] % (Auto) Lymph # [place] # Baso # Seg Neutrophils % Seg Neuts % (Manual) Lymphocytes % (Manual) Monocytes % (Manual) Eosinophils % (Manual) Basophils % (Manual) Nucleated RBC % Seg Neutrophils # Seg Neutrophils # Man Lymphocytes # (Manual) Monocytes # (Manual) Eosinophils # (Manual) PT INR Fibrinogen dRVVT Confirm Interp Factor V Activity POC ABG pH 7.499 H POC ABG pCO2 28.4 L POC ABG pO2 44 L ABG pO2 ABG HCO3 ABG Hemoglobin Oxyhemoglobin Sodium Potassium Chloride Carbon Dioxide BUN Creatinine Glucose POC Glucose 64 L 205 H Lactic Acid Calcium Phosphorus Magnesium Direct Bilirubin AST ALT Alkaline Phosphatase Lactate Dehydrogenase Troponin T C-Reactive Protein Total Protein Albumin Prealbumin Triglycerides Cholesterol LDL Cholesterol Direct HDL Cholesterol Urine pH Urine WBC (Auto) Urine Creatinine Urine Total Protein Fluid Total Protein Vancomycin Trough Rheumatoid Factor Complement C4 Miscellaneous Test Crossmatch 10/03/16 10/04/16 10/04/16 23:33 04:18 06:30 WBC RBC 2.54 L Hgb 7.1 L Hct 21.7 L MCV MCH MCHC RDW 19.5 H Plt Count 76 L Lymph % (Auto) [place] % (Auto) Lymph # [place] # Baso # Seg Neutrophils % Seg Neuts % (Manual) 88.0 H Lymphocytes % (Manual) 6.0 L Monocytes % (Manual) Eosinophils % (Manual) Basophils % (Manual) Nucleated RBC % Seg Neutrophils # Seg Neutrophils # Man 8.8 H Lymphocytes # (Manual) 0.6 L Monocytes # (Manual) Eosinophils # (Manual) PT INR Fibrinogen dRVVT Confirm Interp Factor V Activity POC ABG pH 7.461 H POC ABG pCO2 33.6 L POC ABG pO2 211 H ABG pO2 ABG HCO3 ABG Hemoglobin Oxyhemoglobin Sodium Potassium Chloride Carbon Dioxide BUN Creatinine Glucose POC Glucose 136 H Lactic Acid Calcium Phosphorus Magnesium Direct Bilirubin AST ALT Alkaline Phosphatase Lactate Dehydrogenase Troponin T C-Reactive Protein Total Protein Albumin Prealbumin Triglycerides Cholesterol LDL Cholesterol Direct HDL Cholesterol Urine pH Urine WBC (Auto) Urine Creatinine Urine Total Protein Fluid Total Protein Vancomycin Trough Rheumatoid Factor Complement C4 Miscellaneous Test Crossmatch 10/04/16 10/04/16 10/04/16 06:30 11:45 17:54 WBC RBC Hgb Hct MCV MCH MCHC RDW Plt Count Lymph % (Auto) [place] % (Auto) Lymph # [place] # Baso # Seg Neutrophils % Seg Neuts % (Manual) Lymphocytes % (Manual) Monocytes % (Manual) Eosinophils % (Manual) Basophils % (Manual) Nucleated RBC % Seg Neutrophils # Seg Neutrophils # Man Lymphocytes # (Manual) Monocytes # (Manual) Eosinophils # (Manual) PT INR Fibrinogen dRVVT Confirm Interp Factor V Activity POC ABG pH POC ABG pCO2 POC ABG pO2 ABG pO2 ABG HCO3 ABG Hemoglobin Oxyhemoglobin Sodium 128 L Potassium Chloride 87.4 L Carbon Dioxide 20 L BUN 34 H Creatinine 2.9 H Glucose 127 H POC Glucose 158 H 160 H Lactic Acid Calcium 7.4 L Phosphorus Magnesium Direct Bilirubin AST ALT Alkaline Phosphatase Lactate Dehydrogenase Troponin T C-Reactive Protein Total Protein Albumin Prealbumin Triglycerides Cholesterol LDL Cholesterol Direct HDL Cholesterol Urine pH Urine WBC (Auto) Urine Creatinine Urine Total Protein Fluid Total Protein Vancomycin Trough Rheumatoid Factor Complement C4 Miscellaneous Test Crossmatch 10/04/16 10/05/16 10/05/16 23:25 04:30 05:00 WBC RBC 2.64 L Hgb 7.5 L Hct 22.6 L MCV MCH MCHC RDW 19.3 H Plt Count 80 L Lymph % (Auto) [place] % (Auto) Lymph # [place] # Baso # Seg Neutrophils % Seg Neuts % (Manual) Lymphocytes % (Manual) 12.0 L Monocytes % (Manual) Eosinophils % (Manual) Basophils % (Manual) Nucleated RBC % Seg Neutrophils # Seg Neutrophils # Man Lymphocytes # (Manual) Monocytes # (Manual) Eosinophils # (Manual) PT INR Fibrinogen dRVVT Confirm Interp Factor V Activity POC ABG pH 7.475 H POC ABG pCO2 33.3 L POC ABG pO2 140 H ABG pO2 ABG HCO3 ABG Hemoglobin Oxyhemoglobin Sodium Potassium Chloride Carbon Dioxide BUN Creatinine Glucose POC Glucose 141 H Lactic Acid Calcium Phosphorus Magnesium Direct Bilirubin AST ALT Alkaline Phosphatase Lactate Dehydrogenase Troponin T C-Reactive Protein Total Protein Albumin Prealbumin Triglycerides Cholesterol LDL Cholesterol Direct HDL Cholesterol Urine pH Urine WBC (Auto) Urine Creatinine Urine Total Protein Fluid Total Protein Vancomycin Trough Rheumatoid Factor Complement C4 Miscellaneous Test Crossmatch 10/05/16 10/05/16 10/05/16 05:00 05:09 12:58 WBC RBC Hgb Hct MCV MCH MCHC RDW Plt Count Lymph % (Auto) [place] % (Auto) Lymph # [place] # Baso # Seg Neutrophils % Seg Neuts % (Manual) Lymphocytes % (Manual) Monocytes % (Manual) Eosinophils % (Manual) Basophils % (Manual) Nucleated RBC % Seg Neutrophils # Seg Neutrophils # Man Lymphocytes # (Manual) Monocytes # (Manual) Eosinophils # (Manual) PT INR Fibrinogen dRVVT Confirm Interp Factor V Activity POC ABG pH POC ABG pCO2 POC ABG pO2 ABG pO2 ABG HCO3 ABG Hemoglobin Oxyhemoglobin Sodium 131 L Potassium Chloride 94.0 L Carbon Dioxide 20 L BUN 22 H Creatinine 2.0 H Glucose 123 H POC Glucose 166 H 179 H Lactic Acid Calcium 7.7 L Phosphorus 2.20 L D Magnesium Direct Bilirubin AST ALT Alkaline Phosphatase Lactate Dehydrogenase Troponin T C-Reactive Protein Total Protein Albumin Prealbumin Triglycerides Cholesterol LDL Cholesterol Direct HDL Cholesterol Urine pH Urine WBC (Auto) Urine Creatinine Urine Total Protein Fluid Total Protein Vancomycin Trough Rheumatoid Factor Complement C4 Miscellaneous Test Crossmatch 10/05/16 10/05/16 10/05/16 15:50 18:53 23:12 WBC RBC Hgb Hct MCV MCH MCHC RDW Plt Count Lymph % (Auto) [place] % (Auto) Lymph # [place] # Baso # Seg Neutrophils % Seg Neuts % (Manual) Lymphocytes % (Manual) Monocytes % (Manual) Eosinophils % (Manual) Basophils % (Manual) Nucleated RBC % Seg Neutrophils # Seg Neutrophils # Man Lymphocytes # (Manual) Monocytes # (Manual) Eosinophils # (Manual) PT INR Fibrinogen dRVVT Confirm Interp Factor V Activity POC ABG pH POC ABG pCO2 POC ABG pO2 ABG pO2 ABG HCO3 ABG Hemoglobin Oxyhemoglobin Sodium Potassium Chloride Carbon Dioxide BUN Creatinine Glucose POC Glucose 150 H 164 H Lactic Acid Calcium Phosphorus Magnesium Direct Bilirubin AST ALT Alkaline Phosphatase Lactate Dehydrogenase Troponin T C-Reactive Protein Total Protein Albumin Prealbumin Triglycerides Cholesterol LDL Cholesterol Direct HDL Cholesterol Urine pH Urine WBC (Auto) Urine Creatinine Urine Total Protein Fluid Total Protein Vancomycin Trough Rheumatoid Factor Complement C4 Miscellaneous Test Crossmatch See Detail 10/06/16 10/06/16 10/06/16 03:50 03:50 04:53 WBC RBC 3.00 L Hgb 8.6 L Hct 25.8 L MCV MCH MCHC RDW 17.9 H Plt Count 65 L Lymph % (Auto) [place] % (Auto) Lymph # [place] # Baso # Seg Neutrophils % Seg Neuts % (Manual) 30.0 L Lymphocytes % (Manual) 5.0 L Monocytes % (Manual) Eosinophils % (Manual) Basophils % (Manual) Nucleated RBC % Seg Neutrophils # Seg Neutrophils # Man Lymphocytes # (Manual) 0.4 L Monocytes # (Manual) Eosinophils # (Manual) PT INR Fibrinogen dRVVT Confirm Interp Factor V Activity POC ABG pH 7.310 L POC ABG pCO2 49.0 H POC ABG pO2 ABG pO2 ABG HCO3 ABG Hemoglobin Oxyhemoglobin Sodium 133 L Potassium Chloride 95.9 L Carbon Dioxide BUN 26 H Creatinine 2.0 H Glucose 116 H POC Glucose Lactic Acid Calcium 7.8 L Phosphorus Magnesium Direct Bilirubin AST ALT Alkaline Phosphatase Lactate Dehydrogenase Troponin T C-Reactive Protein Total Protein Albumin Prealbumin Triglycerides Cholesterol LDL Cholesterol Direct HDL Cholesterol Urine pH Urine WBC (Auto) Urine Creatinine Urine Total Protein Fluid Total Protein Vancomycin Trough Rheumatoid Factor Complement C4 Miscellaneous Test Crossmatch 10/06/16 10/06/16 10/06/16 05:23 11:52 18:34 WBC RBC Hgb Hct MCV MCH MCHC RDW Plt Count Lymph % (Auto) [place] % (Auto) Lymph # [place] # Baso # Seg Neutrophils % Seg Neuts % (Manual) Lymphocytes % (Manual) Monocytes % (Manual) Eosinophils % (Manual) Basophils % (Manual) Nucleated RBC % Seg Neutrophils # Seg Neutrophils # Man Lymphocytes # (Manual) Monocytes # (Manual) Eosinophils # (Manual) PT INR Fibrinogen dRVVT Confirm Interp Factor V Activity POC ABG pH POC ABG pCO2 POC ABG pO2 ABG pO2 ABG HCO3 ABG Hemoglobin Oxyhemoglobin Sodium Potassium Chloride Carbon Dioxide BUN Creatinine Glucose POC Glucose 126 H 116 H 129 H Lactic Acid Calcium Phosphorus Magnesium Direct Bilirubin AST ALT Alkaline Phosphatase Lactate Dehydrogenase Troponin T C-Reactive Protein Total Protein Albumin Prealbumin Triglycerides Cholesterol LDL Cholesterol Direct HDL Cholesterol Urine pH Urine WBC (Auto) Urine Creatinine Urine Total Protein Fluid Total Protein Vancomycin Trough Rheumatoid Factor Complement C4 Miscellaneous Test Crossmatch 10/07/16 10/07/16 10/07/16 03:45 05:00 10:00 WBC 17.0 H RBC 2.68 L Hgb 7.3 L Hct 25.3 L MCV MCH 27 L MCHC 29 L RDW 19.6 H Plt Count 74 L Lymph % (Auto) [place] % (Auto) Lymph # [place] # Baso # Seg Neutrophils % Seg Neuts % (Manual) Lymphocytes % (Manual) 12.0 L Monocytes % (Manual) Eosinophils % (Manual) Basophils % (Manual) Nucleated RBC % 4.0 H Seg Neutrophils # Seg Neutrophils # Man 10.7 H Lymphocytes # (Manual) Monocytes # (Manual) Eosinophils # (Manual) PT INR Fibrinogen dRVVT Confirm Interp Factor V Activity POC ABG pH POC ABG pCO2 POC ABG pO2 ABG pO2 ABG HCO3 ABG Hemoglobin Oxyhemoglobin Sodium 130 L Potassium 3.2 L Chloride 93.9 L Carbon Dioxide 20 L BUN 44 H Creatinine 2.7 H Glucose 129 H POC Glucose Lactic Acid Calcium 7.4 L Phosphorus Magnesium Direct Bilirubin AST ALT 6 L Alkaline Phosphatase 195 H Lactate Dehydrogenase Troponin T C-Reactive Protein Total Protein 4.9 L Albumin 1.0 L Prealbumin Triglycerides Cholesterol LDL Cholesterol Direct HDL Cholesterol Urine pH Urine WBC (Auto) Urine Creatinine Urine Total Protein Fluid Total Protein Vancomycin Trough Rheumatoid Factor Complement C4 Miscellaneous Test Flexitest 1 H Crossmatch 10/07/16 10/07/16 10/07/16 10:00 11:24 18:10 WBC RBC Hgb Hct MCV MCH MCHC RDW Plt Count Lymph % (Auto) [place] % (Auto) Lymph # [place] # Baso # Seg Neutrophils % Seg Neuts % (Manual) Lymphocytes % (Manual) Monocytes % (Manual) Eosinophils % (Manual) Basophils % (Manual) Nucleated RBC % Seg Neutrophils # Seg Neutrophils # Man Lymphocytes # (Manual) Monocytes # (Manual) Eosinophils # (Manual) PT INR Fibrinogen dRVVT Confirm Interp Factor V Activity POC ABG pH POC ABG pCO2 POC ABG pO2 ABG pO2 ABG HCO3 ABG Hemoglobin Oxyhemoglobin Sodium Potassium Chloride Carbon Dioxide BUN Creatinine Glucose POC Glucose 116 H 130 H Lactic Acid Calcium Phosphorus Magnesium Direct Bilirubin AST ALT Alkaline Phosphatase Lactate Dehydrogenase Troponin T C-Reactive Protein 19.40 H Total Protein Albumin Prealbumin Triglycerides Cholesterol LDL Cholesterol Direct HDL Cholesterol Urine pH Urine WBC (Auto) Urine Creatinine Urine Total Protein Fluid Total Protein Vancomycin Trough Rheumatoid Factor Complement C4 Miscellaneous Test Crossmatch 10/07/16 10/08/16 10/08/16 18:30 00:00 04:00 WBC RBC Hgb Hct MCV MCH MCHC RDW Plt Count Lymph % (Auto) [place] % (Auto) Lymph # [place] # Baso # Seg Neutrophils % Seg Neuts % (Manual) Lymphocytes % (Manual) Monocytes % (Manual) Eosinophils % (Manual) Basophils % (Manual) Nucleated RBC % Seg Neutrophils # Seg Neutrophils # Man Lymphocytes # (Manual) Monocytes # (Manual) Eosinophils # (Manual) PT INR Fibrinogen dRVVT Confirm Interp Factor V Activity POC ABG pH POC ABG pCO2 POC ABG pO2 ABG pO2 ABG HCO3 ABG Hemoglobin Oxyhemoglobin Sodium 132 L Potassium 3.3 L Chloride 93.6 L Carbon Dioxide 17 L BUN 59 H Creatinine 2.7 H Glucose 121 H POC Glucose 122 H Lactic Acid Calcium 7.6 L Phosphorus Magnesium Direct Bilirubin AST ALT Alkaline Phosphatase Lactate Dehydrogenase Troponin T C-Reactive Protein Total Protein Albumin Prealbumin Triglycerides Cholesterol LDL Cholesterol Direct HDL Cholesterol Urine pH Urine WBC (Auto) > 182.0 H Urine Creatinine Urine Total Protein Fluid Total Protein Vancomycin Trough Rheumatoid Factor Complement C4 Miscellaneous Test Crossmatch 10/08/16 10/08/16 10/08/16 04:30 05:30 11:51 WBC RBC 5.15 H Hgb 14.4 H D Hct 44.5 H D MCV MCH MCHC RDW 19.5 H Plt Count 56 L Lymph % (Auto) [place] % (Auto) Lymph # [place] # Baso # Seg Neutrophils % Seg Neuts % (Manual) 24.0 L Lymphocytes % (Manual) 8.0 L Monocytes % (Manual) Eosinophils % (Manual) Basophils % (Manual) Nucleated RBC % 9.0 H Seg Neutrophils # Seg Neutrophils # Man Lymphocytes # (Manual) 0.7 L Monocytes # (Manual) Eosinophils # (Manual) PT INR Fibrinogen dRVVT Confirm Interp Factor V Activity POC ABG pH POC ABG pCO2 POC ABG pO2 ABG pO2 ABG HCO3 ABG Hemoglobin Oxyhemoglobin Sodium Potassium Chloride Carbon Dioxide BUN Creatinine Glucose POC Glucose 125 H 150 H Lactic Acid Calcium Phosphorus Magnesium Direct Bilirubin AST ALT Alkaline Phosphatase Lactate Dehydrogenase Troponin T C-Reactive Protein Total Protein Albumin Prealbumin Triglycerides Cholesterol LDL Cholesterol Direct HDL Cholesterol Urine pH Urine WBC (Auto) Urine Creatinine Urine Total Protein Fluid Total Protein Vancomycin Trough Rheumatoid Factor Complement C4 Miscellaneous Test Crossmatch 10/08/16 10/08/16 10/08/16 12:49 17:07 19:30 WBC RBC Hgb 7.1 L D Hct 22.4 L D MCV MCH MCHC RDW Plt Count Lymph % (Auto) [place] % (Auto) Lymph # [place] # Baso # Seg Neutrophils % Seg Neuts % (Manual) Lymphocytes % (Manual) Monocytes % (Manual) Eosinophils % (Manual) Basophils % (Manual) Nucleated RBC % Seg Neutrophils # Seg Neutrophils # Man Lymphocytes # (Manual) Monocytes # (Manual) Eosinophils # (Manual) PT INR Fibrinogen dRVVT Confirm Interp Factor V Activity POC ABG pH POC ABG pCO2 28.2 L POC ABG pO2 111 H ABG pO2 ABG HCO3 ABG Hemoglobin Oxyhemoglobin Sodium Potassium Chloride Carbon Dioxide BUN Creatinine Glucose POC Glucose 145 H Lactic Acid Calcium Phosphorus Magnesium Direct Bilirubin AST ALT Alkaline Phosphatase Lactate Dehydrogenase Troponin T C-Reactive Protein Total Protein Albumin Prealbumin Triglycerides Cholesterol LDL Cholesterol Direct HDL Cholesterol Urine pH Urine WBC (Auto) Urine Creatinine Urine Total Protein Fluid Total Protein Vancomycin Trough Rheumatoid Factor Complement C4 Miscellaneous Test Crossmatch 10/08/16 10/09/16 10/09/16 19:30 03:45 03:45 WBC 12.6 H RBC 2.36 L Hgb 6.7 L Hct 21.1 L MCV MCH MCHC RDW 19.5 H Plt Count 75 L Lymph % (Auto) [place] % (Auto) Lymph # [place] # Baso # Seg Neutrophils % Seg Neuts % (Manual) Lymphocytes % (Manual) Monocytes % (Manual) 10.0 H Eosinophils % (Manual) Basophils % (Manual) Nucleated RBC % 3.0 H Seg Neutrophils # Seg Neutrophils # Man Lymphocytes # (Manual) Monocytes # (Manual) 1.3 H Eosinophils # (Manual) PT 18.0 H INR 1.41 H Fibrinogen dRVVT Confirm Interp Factor V Activity POC ABG pH POC ABG pCO2 POC ABG pO2 ABG pO2 ABG HCO3 ABG Hemoglobin Oxyhemoglobin Sodium 135 L Potassium Chloride Carbon Dioxide 17 L BUN 81 H Creatinine 3.2 H Glucose 109 H POC Glucose Lactic Acid Calcium 7.4 L Phosphorus 4.60 H D Magnesium Direct Bilirubin AST ALT Alkaline Phosphatase Lactate Dehydrogenase Troponin T C-Reactive Protein Total Protein Albumin Prealbumin Triglycerides Cholesterol LDL Cholesterol Direct HDL Cholesterol Urine pH Urine WBC (Auto) Urine Creatinine Urine Total Protein Fluid Total Protein Vancomycin Trough Rheumatoid Factor Complement C4 Miscellaneous Test Crossmatch 10/09/16 10/09/16 10/09/16 03:45 05:14 07:20 WBC RBC Hgb Hct MCV MCH MCHC RDW Plt Count Lymph % (Auto) [place] % (Auto) Lymph # [place] # Baso # Seg Neutrophils % Seg Neuts % (Manual) Lymphocytes % (Manual) Monocytes % (Manual) Eosinophils % (Manual) Basophils % (Manual) Nucleated RBC % Seg Neutrophils # Seg Neutrophils # Man Lymphocytes # (Manual) Monocytes # (Manual) Eosinophils # (Manual) PT 19.0 H INR 1.51 H Fibrinogen dRVVT Confirm Interp Factor V Activity POC ABG pH POC ABG pCO2 POC ABG pO2 ABG pO2 ABG HCO3 ABG Hemoglobin Oxyhemoglobin Sodium Potassium Chloride Carbon Dioxide BUN Creatinine Glucose POC Glucose 151 H Lactic Acid Calcium Phosphorus Magnesium Direct Bilirubin AST ALT Alkaline Phosphatase Lactate Dehydrogenase Troponin T C-Reactive Protein Total Protein Albumin Prealbumin Triglycerides Cholesterol LDL Cholesterol Direct HDL Cholesterol Urine pH Urine WBC (Auto) Urine Creatinine Urine Total Protein Fluid Total Protein Vancomycin Trough Rheumatoid Factor Complement C4 Miscellaneous Test Crossmatch See Detail 10/09/16 10/09/16 10/09/16 11:46 16:20 16:43 WBC RBC Hgb 7.2 L Hct 22.2 L MCV MCH MCHC RDW Plt Count Lymph % (Auto) [place] % (Auto) Lymph # [place] # Baso # Seg Neutrophils % Seg Neuts % (Manual) Lymphocytes % (Manual) Monocytes % (Manual) Eosinophils % (Manual) Basophils % (Manual) Nucleated RBC % Seg Neutrophils # Seg Neutrophils # Man Lymphocytes # (Manual) Monocytes # (Manual) Eosinophils # (Manual) PT INR Fibrinogen dRVVT Confirm Interp Factor V Activity POC ABG pH POC ABG pCO2 POC ABG pO2 ABG pO2 ABG HCO3 ABG Hemoglobin Oxyhemoglobin Sodium Potassium Chloride Carbon Dioxide BUN Creatinine Glucose POC Glucose 133 H 141 H Lactic Acid Calcium Phosphorus Magnesium Direct Bilirubin AST ALT Alkaline Phosphatase Lactate Dehydrogenase Troponin T C-Reactive Protein Total Protein Albumin Prealbumin Triglycerides Cholesterol LDL Cholesterol Direct HDL Cholesterol Urine pH Urine WBC (Auto) Urine Creatinine Urine Total Protein Fluid Total Protein Vancomycin Trough Rheumatoid Factor Complement C4 Miscellaneous Test Crossmatch 10/10/16 10/10/16 10/10/16 05:00 05:00 11:19 WBC 18.5 H RBC 2.19 L Hgb 6.4 L Hct 19.6 L* MCV MCH MCHC RDW 19.3 H Plt Count 93 L Lymph % (Auto) [place] % (Auto) Lymph # [place] # Baso # Seg Neutrophils % Seg Neuts % (Manual) Lymphocytes % (Manual) 10.0 L Monocytes % (Manual) Eosinophils % (Manual) Basophils % (Manual) Nucleated RBC % 4.0 H Seg Neutrophils # Seg Neutrophils # Man 11.3 H Lymphocytes # (Manual) Monocytes # (Manual) Eosinophils # (Manual) PT INR Fibrinogen dRVVT Confirm Interp Factor V Activity POC ABG pH POC ABG pCO2 POC ABG pO2 ABG pO2 ABG HCO3 ABG Hemoglobin Oxyhemoglobin Sodium Potassium 5.7 H D Chloride Carbon Dioxide 16 L BUN 94 H Creatinine 3.1 H Glucose 131 H POC Glucose 153 H Lactic Acid Calcium 8.2 L Phosphorus 5.10 H Magnesium 2.40 H Direct Bilirubin 0.3 H AST ALT < 5 L Alkaline Phosphatase 319 H Lactate Dehydrogenase Troponin T C-Reactive Protein Total Protein 5.1 L Albumin 1.0 L Prealbumin Triglycerides Cholesterol LDL Cholesterol Direct HDL Cholesterol Urine pH Urine WBC (Auto) Urine Creatinine Urine Total Protein Fluid Total Protein Vancomycin Trough Rheumatoid Factor Complement C4 Miscellaneous Test Crossmatch 10/10/16 10/10/16 10/11/16 17:50 23:30 04:15 WBC RBC Hgb Hct MCV MCH MCHC RDW Plt Count Lymph % (Auto) [place] % (Auto) Lymph # [place] # Baso # Seg Neutrophils % Seg Neuts % (Manual) Lymphocytes % (Manual) Monocytes % (Manual) Eosinophils % (Manual) Basophils % (Manual) Nucleated RBC % Seg Neutrophils # Seg Neutrophils # Man Lymphocytes # (Manual) Monocytes # (Manual) Eosinophils # (Manual) PT INR Fibrinogen dRVVT Confirm Interp Factor V Activity POC ABG pH POC ABG pCO2 POC ABG pO2 ABG pO2 ABG HCO3 ABG Hemoglobin Oxyhemoglobin Sodium Potassium Chloride 96.4 L Carbon Dioxide 21 L BUN 57 H Creatinine 2.1 H Glucose 151 H POC Glucose 146 H 141 H Lactic Acid Calcium 8.3 L Phosphorus Magnesium Direct Bilirubin AST ALT Alkaline Phosphatase Lactate Dehydrogenase Troponin T C-Reactive Protein Total Protein Albumin Prealbumin Triglycerides Cholesterol LDL Cholesterol Direct HDL Cholesterol Urine pH Urine WBC (Auto) Urine Creatinine Urine Total Protein Fluid Total Protein Vancomycin Trough Rheumatoid Factor Complement C4 Miscellaneous Test Crossmatch 10/11/16 10/11/16 10/11/16 04:15 04:15 05:30 WBC 28.3 H RBC 3.12 L Hgb 9.3 L Hct 28.7 L D MCV MCH MCHC RDW 17.7 H Plt Count 128 L Lymph % (Auto) [place] % (Auto) Lymph # [place] # Baso # Seg Neutrophils % Seg Neuts % (Manual) Lymphocytes % (Manual) Monocytes % (Manual) Eosinophils % (Manual) Basophils % (Manual) Nucleated RBC % Seg Neutrophils # Seg Neutrophils # Man Lymphocytes # (Manual) Monocytes # (Manual) Eosinophils # (Manual) PT INR Fibrinogen dRVVT Confirm Interp Factor V Activity POC ABG pH POC ABG pCO2 POC ABG pO2 ABG pO2 ABG HCO3 ABG Hemoglobin Oxyhemoglobin Sodium Potassium Chloride Carbon Dioxide BUN Creatinine Glucose POC Glucose 167 H Lactic Acid Calcium Phosphorus Magnesium Direct Bilirubin AST ALT Alkaline Phosphatase Lactate Dehydrogenase Troponin T C-Reactive Protein 15.80 H Total Protein Albumin Prealbumin Triglycerides Cholesterol LDL Cholesterol Direct HDL Cholesterol Urine pH Urine WBC (Auto) Urine Creatinine Urine Total Protein Fluid Total Protein Vancomycin Trough Rheumatoid Factor Complement C4 Miscellaneous Test Crossmatch 10/11/16 10/11/16 10/11/16 11:40 15:49 23:57 WBC RBC Hgb Hct MCV MCH MCHC RDW Plt Count Lymph % (Auto) [place] % (Auto) Lymph # [place] # Baso # Seg Neutrophils % Seg Neuts % (Manual) Lymphocytes % (Manual) Monocytes % (Manual) Eosinophils % (Manual) Basophils % (Manual) Nucleated RBC % Seg Neutrophils # Seg Neutrophils # Man Lymphocytes # (Manual) Monocytes # (Manual) Eosinophils # (Manual) PT INR Fibrinogen dRVVT Confirm Interp Factor V Activity POC ABG pH POC ABG pCO2 POC ABG pO2 ABG pO2 ABG HCO3 ABG Hemoglobin Oxyhemoglobin Sodium Potassium Chloride Carbon Dioxide BUN Creatinine Glucose POC Glucose 139 H 168 H 161 H Lactic Acid Calcium Phosphorus Magnesium Direct Bilirubin AST ALT Alkaline Phosphatase Lactate Dehydrogenase Troponin T C-Reactive Protein Total Protein Albumin Prealbumin Triglycerides Cholesterol LDL Cholesterol Direct HDL Cholesterol Urine pH Urine WBC (Auto) Urine Creatinine Urine Total Protein Fluid Total Protein Vancomycin Trough Rheumatoid Factor Complement C4 Miscellaneous Test Crossmatch 10/12/16 10/12/16 10/12/16 04:40 04:40 05:44 WBC 22.5 H RBC 2.88 L Hgb 8.8 L Hct 26.8 L MCV MCH MCHC RDW 17.8 H Plt Count Lymph % (Auto) [place] % (Auto) Lymph # [place] # Baso # Seg Neutrophils % Seg Neuts % (Manual) Lymphocytes % (Manual) Monocytes % (Manual) Eosinophils % (Manual) Basophils % (Manual) Nucleated RBC % Seg Neutrophils # Seg Neutrophils # Man Lymphocytes # (Manual) Monocytes # (Manual) Eosinophils # (Manual) PT INR Fibrinogen dRVVT Confirm Interp Factor V Activity POC ABG pH POC ABG pCO2 POC ABG pO2 ABG pO2 ABG HCO3 ABG Hemoglobin Oxyhemoglobin Sodium 134 L Potassium Chloride 93.0 L Carbon Dioxide BUN 74 H Creatinine 2.5 H Glucose 137 H POC Glucose 158 H Lactic Acid Calcium 8.2 L Phosphorus Magnesium Direct Bilirubin AST ALT Alkaline Phosphatase Lactate Dehydrogenase Troponin T C-Reactive Protein Total Protein Albumin Prealbumin Triglycerides Cholesterol LDL Cholesterol Direct HDL Cholesterol Urine pH Urine WBC (Auto) Urine Creatinine Urine Total Protein Fluid Total Protein Vancomycin Trough Rheumatoid Factor Complement C4 Miscellaneous Test Crossmatch 10/12/16 10/12/16 10/12/16 12:27 18:18 23:46 WBC RBC Hgb Hct MCV MCH MCHC RDW Plt Count Lymph % (Auto) [place] % (Auto) Lymph # [place] # Baso # Seg Neutrophils % Seg Neuts % (Manual) Lymphocytes % (Manual) Monocytes % (Manual) Eosinophils % (Manual) Basophils % (Manual) Nucleated RBC % Seg Neutrophils # Seg Neutrophils # Man Lymphocytes # (Manual) Monocytes # (Manual) Eosinophils # (Manual) PT INR Fibrinogen dRVVT Confirm Interp Factor V Activity POC ABG pH POC ABG pCO2 POC ABG pO2 ABG pO2 ABG HCO3 ABG Hemoglobin Oxyhemoglobin Sodium Potassium Chloride Carbon Dioxide BUN Creatinine Glucose POC Glucose 153 H 140 H 150 H Lactic Acid Calcium Phosphorus Magnesium Direct Bilirubin AST ALT Alkaline Phosphatase Lactate Dehydrogenase Troponin T C-Reactive Protein Total Protein Albumin Prealbumin Triglycerides Cholesterol LDL Cholesterol Direct HDL Cholesterol Urine pH Urine WBC (Auto) Urine Creatinine Urine Total Protein Fluid Total Protein Vancomycin Trough Rheumatoid Factor Complement C4 Miscellaneous Test Crossmatch 10/13/16 10/13/16 10/13/16 06:22 09:20 12:29 WBC RBC Hgb Hct MCV MCH MCHC RDW Plt Count Lymph % (Auto) [place] % (Auto) Lymph # [place] # Baso # Seg Neutrophils % Seg Neuts % (Manual) Lymphocytes % (Manual) Monocytes % (Manual) Eosinophils % (Manual) Basophils % (Manual) Nucleated RBC % Seg Neutrophils # Seg Neutrophils # Man Lymphocytes # (Manual) Monocytes # (Manual) Eosinophils # (Manual) PT INR Fibrinogen dRVVT Confirm Interp Factor V Activity POC ABG pH POC ABG pCO2 POC ABG pO2 ABG pO2 ABG HCO3 ABG Hemoglobin Oxyhemoglobin Sodium Potassium Chloride Carbon Dioxide BUN Creatinine Glucose POC Glucose 165 H 193 H Lactic Acid Calcium Phosphorus Magnesium Direct Bilirubin AST ALT Alkaline Phosphatase Lactate Dehydrogenase Troponin T C-Reactive Protein Total Protein Albumin Prealbumin Triglycerides Cholesterol LDL Cholesterol Direct HDL Cholesterol Urine pH Urine WBC (Auto) Urine Creatinine Urine Total Protein Fluid Total Protein Vancomycin Trough Rheumatoid Factor Complement C4 Miscellaneous Test Flexitest 1 H Crossmatch 10/13/16 10/13/16 10/13/16 18:09 Unknown Unknown WBC 23.4 H RBC 2.83 L Hgb 8.7 L Hct 26.1 L MCV MCH MCHC RDW 18.1 H Plt Count Lymph % (Auto) [place] % (Auto) Lymph # [place] # Baso # Seg Neutrophils % Seg Neuts % (Manual) Lymphocytes % (Manual) Monocytes % (Manual) Eosinophils % (Manual) Basophils % (Manual) Nucleated RBC % Seg Neutrophils # Seg Neutrophils # Man Lymphocytes # (Manual) Monocytes # (Manual) Eosinophils # (Manual) PT INR Fibrinogen dRVVT Confirm Interp Factor V Activity POC ABG pH POC ABG pCO2 POC ABG pO2 ABG pO2 ABG HCO3 ABG Hemoglobin Oxyhemoglobin Sodium Potassium Chloride 95.8 L Carbon Dioxide BUN 82 H Creatinine 2.6 H Glucose 152 H POC Glucose 166 H Lactic Acid Calcium Phosphorus Magnesium Direct Bilirubin AST ALT Alkaline Phosphatase Lactate Dehydrogenase Troponin T C-Reactive Protein Total Protein Albumin Prealbumin Triglycerides Cholesterol LDL Cholesterol Direct HDL Cholesterol Urine pH Urine WBC (Auto) Urine Creatinine Urine Total Protein Fluid Total Protein Vancomycin Trough Rheumatoid Factor Complement C4 Miscellaneous Test Crossmatch 10/14/16 10/14/16 10/14/16 05:38 06:35 08:10 WBC 20.7 H RBC 2.81 L Hgb 8.4 L Hct 27.2 L MCV MCH MCHC RDW 19.4 H Plt Count Lymph % (Auto) [place] % (Auto) Lymph # [place] # Baso # Seg Neutrophils % Seg Neuts % (Manual) Lymphocytes % (Manual) Monocytes % (Manual) Eosinophils % (Manual) Basophils % (Manual) Nucleated RBC % Seg Neutrophils # Seg Neutrophils # Man Lymphocytes # (Manual) Monocytes # (Manual) Eosinophils # (Manual) PT INR Fibrinogen dRVVT Confirm Interp Factor V Activity POC ABG pH POC ABG pCO2 POC ABG pO2 ABG pO2 ABG HCO3 ABG Hemoglobin Oxyhemoglobin Sodium Potassium Chloride Carbon Dioxide BUN 58 H Creatinine 1.9 H Glucose 169 H POC Glucose 195 H Lactic Acid Calcium Phosphorus Magnesium Direct Bilirubin AST ALT Alkaline Phosphatase Lactate Dehydrogenase Troponin T C-Reactive Protein Total Protein Albumin Prealbumin Triglycerides Cholesterol LDL Cholesterol Direct HDL Cholesterol Urine pH Urine WBC (Auto) Urine Creatinine Urine Total Protein Fluid Total Protein Vancomycin Trough Rheumatoid Factor Complement C4 Miscellaneous Test Crossmatch 10/14/16 10/14/16 10/14/16 11:44 17:13 23:28 WBC RBC Hgb Hct MCV MCH MCHC RDW Plt Count Lymph % (Auto) [place] % (Auto) Lymph # [place] # Baso # Seg Neutrophils % Seg Neuts % (Manual) Lymphocytes % (Manual) Monocytes % (Manual) Eosinophils % (Manual) Basophils % (Manual) Nucleated RBC % Seg Neutrophils # Seg Neutrophils # Man Lymphocytes # (Manual) Monocytes # (Manual) Eosinophils # (Manual) PT INR Fibrinogen dRVVT Confirm Interp Factor V Activity POC ABG pH POC ABG pCO2 POC ABG pO2 ABG pO2 ABG HCO3 ABG Hemoglobin Oxyhemoglobin Sodium Potassium Chloride Carbon Dioxide BUN Creatinine Glucose POC Glucose 174 H 121 H 151 H Lactic Acid Calcium Phosphorus Magnesium Direct Bilirubin AST ALT Alkaline Phosphatase Lactate Dehydrogenase Troponin T C-Reactive Protein Total Protein Albumin Prealbumin Triglycerides Cholesterol LDL Cholesterol Direct HDL Cholesterol Urine pH Urine WBC (Auto) Urine Creatinine Urine Total Protein Fluid Total Protein Vancomycin Trough Rheumatoid Factor Complement C4 Miscellaneous Test Crossmatch 10/15/16 10/15/16 10/15/16 05:06 12:26 17:48 WBC RBC Hgb Hct MCV MCH MCHC RDW Plt Count Lymph % (Auto) [place] % (Auto) Lymph # [place] # Baso # Seg Neutrophils % Seg Neuts % (Manual) Lymphocytes % (Manual) Monocytes % (Manual) Eosinophils % (Manual) Basophils % (Manual) Nucleated RBC % Seg Neutrophils # Seg Neutrophils # Man Lymphocytes # (Manual) Monocytes # (Manual) Eosinophils # (Manual) PT INR Fibrinogen dRVVT Confirm Interp Factor V Activity POC ABG pH POC ABG pCO2 POC ABG pO2 ABG pO2 ABG HCO3 ABG Hemoglobin Oxyhemoglobin Sodium Potassium Chloride Carbon Dioxide BUN Creatinine Glucose POC Glucose 151 H 149 H 153 H Lactic Acid Calcium Phosphorus Magnesium Direct Bilirubin AST ALT Alkaline Phosphatase Lactate Dehydrogenase Troponin T C-Reactive Protein Total Protein Albumin Prealbumin Triglycerides Cholesterol LDL Cholesterol Direct HDL Cholesterol Urine pH Urine WBC (Auto) Urine Creatinine Urine Total Protein Fluid Total Protein Vancomycin Trough Rheumatoid Factor Complement C4 Miscellaneous Test Crossmatch 10/15/16 10/15/16 10/16/16 Unknown Unknown 00:02 WBC 23.4 H RBC 2.78 L Hgb 8.5 L Hct 25.7 L MCV MCH MCHC RDW 18.7 H Plt Count Lymph % (Auto) [place] % (Auto) Lymph # [place] # Baso # Seg Neutrophils % Seg Neuts % (Manual) Lymphocytes % (Manual) Monocytes % (Manual) Eosinophils % (Manual) Basophils % (Manual) Nucleated RBC % Seg Neutrophils # Seg Neutrophils # Man Lymphocytes # (Manual) Monocytes # (Manual) Eosinophils # (Manual) PT INR Fibrinogen dRVVT Confirm Interp Factor V Activity POC ABG pH POC ABG pCO2 POC ABG pO2 ABG pO2 ABG HCO3 ABG Hemoglobin Oxyhemoglobin Sodium Potassium Chloride Carbon Dioxide BUN 73 H Creatinine 2.3 H Glucose 120 H POC Glucose 137 H Lactic Acid Calcium Phosphorus Magnesium Direct Bilirubin AST ALT Alkaline Phosphatase Lactate Dehydrogenase Troponin T C-Reactive Protein Total Protein Albumin Prealbumin Triglycerides Cholesterol LDL Cholesterol Direct HDL Cholesterol Urine pH Urine WBC (Auto) Urine Creatinine Urine Total Protein Fluid Total Protein Vancomycin Trough Rheumatoid Factor Complement C4 Miscellaneous Test Crossmatch 10/16/16 10/16/16 10/16/16 05:44 06:25 06:25 WBC 22.5 H RBC 2.76 L Hgb 8.3 L Hct 25.2 L MCV MCH MCHC RDW 18.3 H Plt Count Lymph % (Auto) [place] % (Auto) Lymph # [place] # Baso # Seg Neutrophils % Seg Neuts % (Manual) Lymphocytes % (Manual) Monocytes % (Manual) Eosinophils % (Manual) Basophils % (Manual) Nucleated RBC % Seg Neutrophils # Seg Neutrophils # Man Lymphocytes # (Manual) Monocytes # (Manual) Eosinophils # (Manual) PT INR Fibrinogen dRVVT Confirm Interp Factor V Activity POC ABG pH POC ABG pCO2 POC ABG pO2 ABG pO2 ABG HCO3 ABG Hemoglobin Oxyhemoglobin Sodium Potassium Chloride Carbon Dioxide BUN 92 H Creatinine 3.0 H Glucose 138 H POC Glucose 110 H Lactic Acid Calcium Phosphorus Magnesium Direct Bilirubin AST ALT Alkaline Phosphatase Lactate Dehydrogenase Troponin T C-Reactive Protein Total Protein Albumin Prealbumin Triglycerides Cholesterol LDL Cholesterol Direct HDL Cholesterol Urine pH Urine WBC (Auto) Urine Creatinine Urine Total Protein Fluid Total Protein Vancomycin Trough Rheumatoid Factor Complement C4 Miscellaneous Test Crossmatch 10/16/16 10/16/16 10/16/16 11:27 11:48 17:36 WBC RBC Hgb Hct MCV MCH MCHC RDW Plt Count Lymph % (Auto) [place] % (Auto) Lymph # [place] # Baso # Seg Neutrophils % Seg Neuts % (Manual) Lymphocytes % (Manual) Monocytes % (Manual) Eosinophils % (Manual) Basophils % (Manual) Nucleated RBC % Seg Neutrophils # Seg Neutrophils # Man Lymphocytes # (Manual) Monocytes # (Manual) Eosinophils # (Manual) PT INR Fibrinogen dRVVT Confirm Interp Factor V Activity POC ABG pH 7.582 H POC ABG pCO2 27.4 L POC ABG pO2 110 H ABG pO2 ABG HCO3 ABG Hemoglobin Oxyhemoglobin Sodium Potassium Chloride Carbon Dioxide BUN Creatinine Glucose POC Glucose 121 H 133 H Lactic Acid Calcium Phosphorus Magnesium Direct Bilirubin AST ALT Alkaline Phosphatase Lactate Dehydrogenase Troponin T C-Reactive Protein Total Protein Albumin Prealbumin Triglycerides Cholesterol LDL Cholesterol Direct HDL Cholesterol Urine pH Urine WBC (Auto) Urine Creatinine Urine Total Protein Fluid Total Protein Vancomycin Trough Rheumatoid Factor Complement C4 Miscellaneous Test Crossmatch 10/16/16 10/17/16 10/17/16 20:48 04:24 04:24 WBC 21.4 H RBC 2.72 L Hgb 8.0 L Hct 25.2 L MCV MCH MCHC RDW 18.0 H Plt Count Lymph % (Auto) [place] % (Auto) Lymph # [place] # Baso # Seg Neutrophils % Seg Neuts % (Manual) Lymphocytes % (Manual) Monocytes % (Manual) Eosinophils % (Manual) Basophils % (Manual) Nucleated RBC % Seg Neutrophils # Seg Neutrophils # Man Lymphocytes # (Manual) Monocytes # (Manual) Eosinophils # (Manual) PT INR Fibrinogen dRVVT Confirm Interp Factor V Activity POC ABG pH 7.561 H POC ABG pCO2 24.4 L POC ABG pO2 77 L ABG pO2 ABG HCO3 ABG Hemoglobin Oxyhemoglobin Sodium 148 H Potassium Chloride Carbon Dioxide BUN 104 H Creatinine 3.0 H Glucose 149 H POC Glucose Lactic Acid Calcium Phosphorus Magnesium Direct Bilirubin AST ALT Alkaline Phosphatase 138 H Lactate Dehydrogenase Troponin T C-Reactive Protein Total Protein 6.2 L Albumin 1.5 L Prealbumin Triglycerides Cholesterol LDL Cholesterol Direct HDL Cholesterol Urine pH Urine WBC (Auto) Urine Creatinine Urine Total Protein Fluid Total Protein Vancomycin Trough Rheumatoid Factor Complement C4 Miscellaneous Test Crossmatch 10/17/16 10/17/16 10/17/16 06:02 12:17 17:14 WBC RBC Hgb Hct MCV MCH MCHC RDW Plt Count Lymph % (Auto) [place] % (Auto) Lymph # [place] # Baso # Seg Neutrophils % Seg Neuts % (Manual) Lymphocytes % (Manual) Monocytes % (Manual) Eosinophils % (Manual) Basophils % (Manual) Nucleated RBC % Seg Neutrophils # Seg Neutrophils # Man Lymphocytes # (Manual) Monocytes # (Manual) Eosinophils # (Manual) PT INR Fibrinogen dRVVT Confirm Interp Factor V Activity POC ABG pH POC ABG pCO2 POC ABG pO2 ABG pO2 ABG HCO3 ABG Hemoglobin Oxyhemoglobin Sodium Potassium Chloride Carbon Dioxide BUN Creatinine Glucose POC Glucose 170 H 167 H 126 H Lactic Acid Calcium Phosphorus Magnesium Direct Bilirubin AST ALT Alkaline Phosphatase Lactate Dehydrogenase Troponin T C-Reactive Protein Total Protein Albumin Prealbumin Triglycerides Cholesterol LDL Cholesterol Direct HDL Cholesterol Urine pH Urine WBC (Auto) Urine Creatinine Urine Total Protein Fluid Total Protein Vancomycin Trough Rheumatoid Factor Complement C4 Miscellaneous Test Crossmatch 10/17/16 10/18/16 10/18/16 23:17 04:00 04:00 WBC 20.7 H RBC 2.47 L Hgb 7.4 L Hct 22.9 L MCV MCH MCHC RDW 17.5 H Plt Count Lymph % (Auto) [place] % (Auto) Lymph # [place] # Baso # Seg Neutrophils % Seg Neuts % (Manual) Lymphocytes % (Manual) Monocytes % (Manual) Eosinophils % (Manual) Basophils % (Manual) Nucleated RBC % Seg Neutrophils # Seg Neutrophils # Man Lymphocytes # (Manual) Monocytes # (Manual) Eosinophils # (Manual) PT INR Fibrinogen dRVVT Confirm Interp Factor V Activity POC ABG pH POC ABG pCO2 POC ABG pO2 ABG pO2 ABG HCO3 ABG Hemoglobin Oxyhemoglobin Sodium 149 H Potassium Chloride 107.9 H Carbon Dioxide 20 L BUN 117 H Creatinine 3.2 H Glucose 119 H POC Glucose 121 H Lactic Acid Calcium Phosphorus Magnesium Direct Bilirubin AST ALT Alkaline Phosphatase Lactate Dehydrogenase Troponin T C-Reactive Protein Total Protein Albumin Prealbumin Triglycerides Cholesterol LDL Cholesterol Direct HDL Cholesterol Urine pH Urine WBC (Auto) Urine Creatinine Urine Total Protein Fluid Total Protein Vancomycin Trough Rheumatoid Factor Complement C4 Miscellaneous Test Crossmatch 10/18/16 10/18/16 10/18/16 05:23 10:46 17:30 WBC RBC Hgb Hct MCV MCH MCHC RDW Plt Count Lymph % (Auto) [place] % (Auto) Lymph # [place] # Baso # Seg Neutrophils % Seg Neuts % (Manual) Lymphocytes % (Manual) Monocytes % (Manual) Eosinophils % (Manual) Basophils % (Manual) Nucleated RBC % Seg Neutrophils # Seg Neutrophils # Man Lymphocytes # (Manual) Monocytes # (Manual) Eosinophils # (Manual) PT INR Fibrinogen dRVVT Confirm Interp Factor V Activity POC ABG pH POC ABG pCO2 POC ABG pO2 ABG pO2 ABG HCO3 ABG Hemoglobin Oxyhemoglobin Sodium Potassium Chloride Carbon Dioxide BUN Creatinine Glucose POC Glucose 119 H 155 H 124 H Lactic Acid Calcium Phosphorus Magnesium Direct Bilirubin AST ALT Alkaline Phosphatase Lactate Dehydrogenase Troponin T C-Reactive Protein Total Protein Albumin Prealbumin Triglycerides Cholesterol LDL Cholesterol Direct HDL Cholesterol Urine pH Urine WBC (Auto) Urine Creatinine Urine Total Protein Fluid Total Protein Vancomycin Trough Rheumatoid Factor Complement C4 Miscellaneous Test Crossmatch 10/19/16 10/19/16 10/19/16 04:00 04:00 05:25 WBC 17.4 H RBC 2.54 L Hgb 7.7 L Hct 23.6 L MCV MCH MCHC RDW 17.3 H Plt Count Lymph % (Auto) [place] % (Auto) Lymph # [place] # Baso # Seg Neutrophils % Seg Neuts % (Manual) Lymphocytes % (Manual) Monocytes % (Manual) Eosinophils % (Manual) Basophils % (Manual) Nucleated RBC % Seg Neutrophils # Seg Neutrophils # Man Lymphocytes # (Manual) Monocytes # (Manual) Eosinophils # (Manual) PT INR Fibrinogen dRVVT Confirm Interp Factor V Activity POC ABG pH POC ABG pCO2 POC ABG pO2 ABG pO2 ABG HCO3 ABG Hemoglobin Oxyhemoglobin Sodium Potassium Chloride Carbon Dioxide BUN 72 H Creatinine 2.1 H Glucose 116 H POC Glucose 119 H Lactic Acid Calcium Phosphorus Magnesium Direct Bilirubin AST ALT Alkaline Phosphatase Lactate Dehydrogenase Troponin T C-Reactive Protein Total Protein Albumin Prealbumin Triglycerides Cholesterol LDL Cholesterol Direct HDL Cholesterol Urine pH Urine WBC (Auto) Urine Creatinine Urine Total Protein Fluid Total Protein Vancomycin Trough Rheumatoid Factor Complement C4 Miscellaneous Test Crossmatch 10/19/16 10/19/16 10/20/16 11:46 23:59 06:00 WBC RBC Hgb Hct MCV MCH MCHC RDW Plt Count Lymph % (Auto) [place] % (Auto) Lymph # [place] # Baso # Seg Neutrophils % Seg Neuts % (Manual) Lymphocytes % (Manual) Monocytes % (Manual) Eosinophils % (Manual) Basophils % (Manual) Nucleated RBC % Seg Neutrophils # Seg Neutrophils # Man Lymphocytes # (Manual) Monocytes # (Manual) Eosinophils # (Manual) PT INR Fibrinogen dRVVT Confirm Interp Factor V Activity POC ABG pH POC ABG pCO2 POC ABG pO2 ABG pO2 ABG HCO3 ABG Hemoglobin Oxyhemoglobin Sodium Potassium Chloride Carbon Dioxide 17 L BUN 94 H Creatinine 2.7 H Glucose POC Glucose 116 H 117 H Lactic Acid Calcium Phosphorus Magnesium Direct Bilirubin AST ALT Alkaline Phosphatase Lactate Dehydrogenase Troponin T C-Reactive Protein Total Protein Albumin Prealbumin Triglycerides Cholesterol LDL Cholesterol Direct HDL Cholesterol Urine pH Urine WBC (Auto) Urine Creatinine Urine Total Protein Fluid Total Protein Vancomycin Trough Rheumatoid Factor Complement C4 Miscellaneous Test Crossmatch 10/20/16 10/20/16 10/20/16 06:00 11:49 16:00 WBC 19.7 H RBC 2.51 L Hgb 7.7 L Hct 23.5 L MCV MCH MCHC RDW 17.5 H Plt Count Lymph % (Auto) [place] % (Auto) Lymph # [place] # Baso # Seg Neutrophils % Seg Neuts % (Manual) Lymphocytes % (Manual) Monocytes % (Manual) Eosinophils % (Manual) Basophils % (Manual) Nucleated RBC % Seg Neutrophils # Seg Neutrophils # Man Lymphocytes # (Manual) Monocytes # (Manual) Eosinophils # (Manual) PT INR Fibrinogen dRVVT Confirm Interp Factor V Activity POC ABG pH POC ABG pCO2 POC ABG pO2 ABG pO2 ABG HCO3 ABG Hemoglobin Oxyhemoglobin Sodium Potassium Chloride Carbon Dioxide BUN Creatinine Glucose POC Glucose 117 H Lactic Acid Calcium Phosphorus Magnesium Direct Bilirubin AST ALT Alkaline Phosphatase Lactate Dehydrogenase Troponin T C-Reactive Protein Total Protein Albumin Prealbumin Triglycerides Cholesterol LDL Cholesterol Direct HDL Cholesterol Urine pH Urine WBC (Auto) Urine Creatinine Urine Total Protein Fluid Total Protein Vancomycin Trough Rheumatoid Factor Complement C4 Miscellaneous Test Flexitest 1 H Crossmatch 10/20/16 10/20/16 10/21/16 18:36 23:39 04:00 WBC RBC Hgb Hct MCV MCH MCHC RDW Plt Count Lymph % (Auto) [place] % (Auto) Lymph # [place] # Baso # Seg Neutrophils % Seg Neuts % (Manual) Lymphocytes % (Manual) Monocytes % (Manual) Eosinophils % (Manual) Basophils % (Manual) Nucleated RBC % Seg Neutrophils # Seg Neutrophils # Man Lymphocytes # (Manual) Monocytes # (Manual) Eosinophils # (Manual) PT INR Fibrinogen dRVVT Confirm Interp Factor V Activity POC ABG pH POC ABG pCO2 POC ABG pO2 ABG pO2 ABG HCO3 ABG Hemoglobin Oxyhemoglobin Sodium Potassium 5.4 H D Chloride Carbon Dioxide 15 L BUN 110 H Creatinine 3.0 H Glucose POC Glucose 127 H 114 H Lactic Acid Calcium Phosphorus Magnesium Direct Bilirubin AST ALT Alkaline Phosphatase Lactate Dehydrogenase Troponin T C-Reactive Protein Total Protein Albumin Prealbumin Triglycerides Cholesterol LDL Cholesterol Direct HDL Cholesterol Urine pH Urine WBC (Auto) Urine Creatinine Urine Total Protein Fluid Total Protein Vancomycin Trough Rheumatoid Factor Complement C4 Miscellaneous Test Crossmatch 10/21/16 10/21/16 10/22/16 05:54 23:46 05:18 WBC RBC Hgb Hct MCV MCH MCHC RDW Plt Count Lymph % (Auto) [place] % (Auto) Lymph # [place] # Baso # Seg Neutrophils % Seg Neuts % (Manual) Lymphocytes % (Manual) Monocytes % (Manual) Eosinophils % (Manual) Basophils % (Manual) Nucleated RBC % Seg Neutrophils # Seg Neutrophils # Man Lymphocytes # (Manual) Monocytes # (Manual) Eosinophils # (Manual) PT INR Fibrinogen dRVVT Confirm Interp Factor V Activity POC ABG pH POC ABG pCO2 POC ABG pO2 ABG pO2 ABG HCO3 ABG Hemoglobin Oxyhemoglobin Sodium Potassium Chloride Carbon Dioxide BUN Creatinine Glucose POC Glucose 119 H 108 H 109 H Lactic Acid Calcium Phosphorus Magnesium Direct Bilirubin AST ALT Alkaline Phosphatase Lactate Dehydrogenase Troponin T C-Reactive Protein Total Protein Albumin Prealbumin Triglycerides Cholesterol LDL Cholesterol Direct HDL Cholesterol Urine pH Urine WBC (Auto) Urine Creatinine Urine Total Protein Fluid Total Protein Vancomycin Trough Rheumatoid Factor Complement C4 Miscellaneous Test Crossmatch 10/22/16 10/22/16 10/22/16 06:40 06:40 06:40 WBC 14.0 H RBC 2.03 L Hgb 7.0 L Hct 20.5 L MCV 98 H MCH 34 H MCHC 35 H RDW 17.8 H Plt Count Lymph % (Auto) [place] % (Auto) 9.9 H Lymph # [place] # 1.4 H Baso # 0.2 H Seg Neutrophils % 72.0 H Seg Neuts % (Manual) Lymphocytes % (Manual) Monocytes % (Manual) Eosinophils % (Manual) Basophils % (Manual) Nucleated RBC % Seg Neutrophils # 10.0 H Seg Neutrophils # Man Lymphocytes # (Manual) Monocytes # (Manual) Eosinophils # (Manual) PT INR Fibrinogen dRVVT Confirm Interp Factor V Activity POC ABG pH POC ABG pCO2 POC ABG pO2 ABG pO2 ABG HCO3 ABG Hemoglobin Oxyhemoglobin Sodium 130 L D Potassium Chloride 92.4 L Carbon Dioxide 20 L BUN 50 H Creatinine 1.6 H Glucose 589 H* POC Glucose Lactic Acid Calcium 7.8 L D Phosphorus Magnesium 1.60 L Direct Bilirubin AST ALT Alkaline Phosphatase Lactate Dehydrogenase Troponin T C-Reactive Protein Total Protein Albumin Prealbumin Triglycerides Cholesterol LDL Cholesterol Direct HDL Cholesterol Urine pH Urine WBC (Auto) Urine Creatinine Urine Total Protein Fluid Total Protein Vancomycin Trough Rheumatoid Factor Complement C4 Miscellaneous Test Crossmatch 10/22/16 10/22/16 10/22/16 11:39 16:44 23:36 WBC RBC Hgb Hct MCV MCH MCHC RDW Plt Count Lymph % (Auto) [place] % (Auto) Lymph # [place] # Baso # Seg Neutrophils % Seg Neuts % (Manual) Lymphocytes % (Manual) Monocytes % (Manual) Eosinophils % (Manual) Basophils % (Manual) Nucleated RBC % Seg Neutrophils # Seg Neutrophils # Man Lymphocytes # (Manual) Monocytes # (Manual) Eosinophils # (Manual) PT INR Fibrinogen dRVVT Confirm Interp Factor V Activity POC ABG pH POC ABG pCO2 POC ABG pO2 ABG pO2 ABG HCO3 ABG Hemoglobin Oxyhemoglobin Sodium Potassium Chloride Carbon Dioxide BUN Creatinine Glucose POC Glucose 142 H 163 H 123 H Lactic Acid Calcium Phosphorus Magnesium Direct Bilirubin AST ALT Alkaline Phosphatase Lactate Dehydrogenase Troponin T C-Reactive Protein Total Protein Albumin Prealbumin Triglycerides Cholesterol LDL Cholesterol Direct HDL Cholesterol Urine pH Urine WBC (Auto) Urine Creatinine Urine Total Protein Fluid Total Protein Vancomycin Trough Rheumatoid Factor Complement C4 Miscellaneous Test Crossmatch 10/23/16 10/23/16 10/23/16 04:58 06:00 12:12 WBC RBC Hgb Hct MCV MCH MCHC RDW Plt Count Lymph % (Auto) [place] % (Auto) Lymph # [place] # Baso # Seg Neutrophils % Seg Neuts % (Manual) Lymphocytes % (Manual) Monocytes % (Manual) Eosinophils % (Manual) Basophils % (Manual) Nucleated RBC % Seg Neutrophils # Seg Neutrophils # Man Lymphocytes # (Manual) Monocytes # (Manual) Eosinophils # (Manual) PT INR Fibrinogen dRVVT Confirm Interp Factor V Activity POC ABG pH POC ABG pCO2 POC ABG pO2 ABG pO2 ABG HCO3 ABG Hemoglobin Oxyhemoglobin Sodium 133 L Potassium 3.5 L Chloride 96.1 L Carbon Dioxide 18 L BUN 76 H Creatinine 2.1 H Glucose POC Glucose 133 H 138 H Lactic Acid Calcium 8.3 L Phosphorus Magnesium Direct Bilirubin AST ALT Alkaline Phosphatase Lactate Dehydrogenase Troponin T C-Reactive Protein Total Protein Albumin Prealbumin Triglycerides Cholesterol LDL Cholesterol Direct HDL Cholesterol Urine pH Urine WBC (Auto) Urine Creatinine Urine Total Protein Fluid Total Protein Vancomycin Trough Rheumatoid Factor Complement C4 Miscellaneous Test Crossmatch 10/23/16 10/23/16 10/24/16 16:53 23:37 04:00 WBC RBC Hgb Hct MCV MCH MCHC RDW Plt Count Lymph % (Auto) [place] % (Auto) Lymph # [place] # Baso # Seg Neutrophils % Seg Neuts % (Manual) Lymphocytes % (Manual) Monocytes % (Manual) Eosinophils % (Manual) Basophils % (Manual) Nucleated RBC % Seg Neutrophils # Seg Neutrophils # Man Lymphocytes # (Manual) Monocytes # (Manual) Eosinophils # (Manual) PT INR Fibrinogen dRVVT Confirm Interp Factor V Activity POC ABG pH POC ABG pCO2 POC ABG pO2 ABG pO2 ABG HCO3 ABG Hemoglobin Oxyhemoglobin Sodium 131 L Potassium Chloride 94.5 L Carbon Dioxide 19 L BUN 97 H Creatinine 2.6 H Glucose 110 H POC Glucose 125 H 123 H Lactic Acid Calcium 8.3 L Phosphorus Magnesium Direct Bilirubin AST ALT Alkaline Phosphatase Lactate Dehydrogenase Troponin T C-Reactive Protein Total Protein Albumin Prealbumin Triglycerides Cholesterol LDL Cholesterol Direct HDL Cholesterol Urine pH Urine WBC (Auto) Urine Creatinine Urine Total Protein Fluid Total Protein Vancomycin Trough Rheumatoid Factor Complement C4 Miscellaneous Test Crossmatch 10/24/16 10/24/16 10/24/16 07:49 11:39 17:52 WBC RBC Hgb 6.0 L Hct 19.7 L* MCV MCH MCHC RDW Plt Count Lymph % (Auto) [place] % (Auto) Lymph # [place] # Baso # Seg Neutrophils % Seg Neuts % (Manual) Lymphocytes % (Manual) Monocytes % (Manual) Eosinophils % (Manual) Basophils % (Manual) Nucleated RBC % Seg Neutrophils # Seg Neutrophils # Man Lymphocytes # (Manual) Monocytes # (Manual) Eosinophils # (Manual) PT INR Fibrinogen dRVVT Confirm Interp Factor V Activity POC ABG pH POC ABG pCO2 POC ABG pO2 ABG pO2 ABG HCO3 ABG Hemoglobin Oxyhemoglobin Sodium Potassium Chloride Carbon Dioxide BUN Creatinine Glucose POC Glucose 106 H 158 H Lactic Acid Calcium Phosphorus Magnesium Direct Bilirubin AST ALT Alkaline Phosphatase Lactate Dehydrogenase Troponin T C-Reactive Protein Total Protein Albumin Prealbumin Triglycerides Cholesterol LDL Cholesterol Direct HDL Cholesterol Urine pH Urine WBC (Auto) Urine Creatinine Urine Total Protein Fluid Total Protein Vancomycin Trough Rheumatoid Factor Complement C4 Miscellaneous Test Crossmatch 10/24/16 10/24/16 10/24/16 20:00 22:27 Unknown WBC RBC Hgb 9.4 L D Hct 27.5 L D MCV MCH MCHC RDW Plt Count Lymph % (Auto) [place] % (Auto) Lymph # [place] # Baso # Seg Neutrophils % Seg Neuts % (Manual) Lymphocytes % (Manual) Monocytes % (Manual) Eosinophils % (Manual) Basophils % (Manual) Nucleated RBC % Seg Neutrophils # Seg Neutrophils # Man Lymphocytes # (Manual) Monocytes # (Manual) Eosinophils # (Manual) PT INR Fibrinogen dRVVT Confirm Interp Factor V Activity POC ABG pH POC ABG pCO2 POC ABG pO2 ABG pO2 ABG HCO3 ABG Hemoglobin Oxyhemoglobin Sodium Potassium Chloride Carbon Dioxide BUN Creatinine Glucose POC Glucose 125 H Lactic Acid Calcium Phosphorus Magnesium Direct Bilirubin AST ALT Alkaline Phosphatase Lactate Dehydrogenase Troponin T C-Reactive Protein Total Protein Albumin Prealbumin Triglycerides Cholesterol LDL Cholesterol Direct HDL Cholesterol Urine pH Urine WBC (Auto) Urine Creatinine Urine Total Protein Fluid Total Protein Vancomycin Trough Rheumatoid Factor Complement C4 Miscellaneous Test Crossmatch See Detail 10/25/16 10/25/16 10/25/16 04:00 04:00 04:00 WBC 14.2 H RBC 2.98 L Hgb 9.0 L Hct 26.2 L MCV MCH MCHC RDW 16.6 H Plt Count Lymph % (Auto) [place] % (Auto) 10.7 H Lymph # [place] # 1.5 H Baso # Seg Neutrophils % 73.6 H Seg Neuts % (Manual) Lymphocytes % (Manual) Monocytes % (Manual) Eosinophils % (Manual) Basophils % (Manual) Nucleated RBC % Seg Neutrophils # 10.5 H Seg Neutrophils # Man Lymphocytes # (Manual) Monocytes # (Manual) Eosinophils # (Manual) PT INR Fibrinogen dRVVT Confirm Interp Factor V Activity POC ABG pH POC ABG pCO2 POC ABG pO2 ABG pO2 ABG HCO3 ABG Hemoglobin Oxyhemoglobin Sodium 132 L Potassium Chloride 94.7 L Carbon Dioxide BUN 51 H Creatinine 1.6 H Glucose 130 H POC Glucose Lactic Acid Calcium 8.3 L Phosphorus 1.60 L D Magnesium Direct Bilirubin AST ALT Alkaline Phosphatase Lactate Dehydrogenase Troponin T C-Reactive Protein Total Protein Albumin Prealbumin Triglycerides Cholesterol LDL Cholesterol Direct HDL Cholesterol Urine pH Urine WBC (Auto) Urine Creatinine Urine Total Protein Fluid Total Protein Vancomycin Trough Rheumatoid Factor Complement C4 Miscellaneous Test Crossmatch 10/25/16 10/25/16 10/25/16 04:32 11:48 17:22 WBC RBC Hgb Hct MCV MCH MCHC RDW Plt Count Lymph % (Auto) [place] % (Auto) Lymph # [place] # Baso # Seg Neutrophils % Seg Neuts % (Manual) Lymphocytes % (Manual) Monocytes % (Manual) Eosinophils % (Manual) Basophils % (Manual) Nucleated RBC % Seg Neutrophils # Seg Neutrophils # Man Lymphocytes # (Manual) Monocytes # (Manual) Eosinophils # (Manual) PT INR Fibrinogen dRVVT Confirm Interp Factor V Activity POC ABG pH POC ABG pCO2 POC ABG pO2 ABG pO2 ABG HCO3 ABG Hemoglobin Oxyhemoglobin Sodium Potassium Chloride Carbon Dioxide BUN Creatinine Glucose POC Glucose 124 H 171 H 120 H Lactic Acid Calcium Phosphorus Magnesium Direct Bilirubin AST ALT Alkaline Phosphatase Lactate Dehydrogenase Troponin T C-Reactive Protein Total Protein Albumin Prealbumin Triglycerides Cholesterol LDL Cholesterol Direct HDL Cholesterol Urine pH Urine WBC (Auto) Urine Creatinine Urine Total Protein Fluid Total Protein Vancomycin Trough Rheumatoid Factor Complement C4 Miscellaneous Test Crossmatch 10/26/16 10/26/16 10/26/16 04:54 07:06 07:06 WBC 16.9 H RBC 3.06 L Hgb 9.1 L Hct 26.9 L MCV MCH MCHC RDW 16.9 H Plt Count Lymph % (Auto) [place] % (Auto) Lymph # [place] # Baso # Seg Neutrophils % Seg Neuts % (Manual) 71.0 H Lymphocytes % (Manual) 5.0 L Monocytes % (Manual) 12.0 H Eosinophils % (Manual) Basophils % (Manual) Nucleated RBC % Seg Neutrophils # Seg Neutrophils # Man 12.0 H Lymphocytes # (Manual) 0.8 L Monocytes # (Manual) 2.0 H Eosinophils # (Manual) PT INR Fibrinogen dRVVT Confirm Interp Factor V Activity POC ABG pH POC ABG pCO2 POC ABG pO2 ABG pO2 ABG HCO3 ABG Hemoglobin Oxyhemoglobin Sodium 135 L Potassium Chloride 97.1 L Carbon Dioxide BUN 73 H Creatinine 2.2 H Glucose 117 H POC Glucose 123 H Lactic Acid Calcium Phosphorus 1.70 L Magnesium Direct Bilirubin AST ALT Alkaline Phosphatase Lactate Dehydrogenase Troponin T C-Reactive Protein Total Protein Albumin Prealbumin Triglycerides Cholesterol LDL Cholesterol Direct HDL Cholesterol Urine pH Urine WBC (Auto) Urine Creatinine Urine Total Protein Fluid Total Protein Vancomycin Trough Rheumatoid Factor Complement C4 Miscellaneous Test Crossmatch 10/26/16 10/26/16 10/26/16 12:12 17:29 23:42 WBC RBC Hgb Hct MCV MCH MCHC RDW Plt Count Lymph % (Auto) [place] % (Auto) Lymph # [place] # Baso # Seg Neutrophils % Seg Neuts % (Manual) Lymphocytes % (Manual) Monocytes % (Manual) Eosinophils % (Manual) Basophils % (Manual) Nucleated RBC % Seg Neutrophils # Seg Neutrophils # Man Lymphocytes # (Manual) Monocytes # (Manual) Eosinophils # (Manual) PT INR Fibrinogen dRVVT Confirm Interp Factor V Activity POC ABG pH POC ABG pCO2 POC ABG pO2 ABG pO2 ABG HCO3 ABG Hemoglobin Oxyhemoglobin Sodium Potassium Chloride Carbon Dioxide BUN Creatinine Glucose POC Glucose 126 H 161 H 118 H Lactic Acid Calcium Phosphorus Magnesium Direct Bilirubin AST ALT Alkaline Phosphatase Lactate Dehydrogenase Troponin T C-Reactive Protein Total Protein Albumin Prealbumin Triglycerides Cholesterol LDL Cholesterol Direct HDL Cholesterol Urine pH Urine WBC (Auto) Urine Creatinine Urine Total Protein Fluid Total Protein Vancomycin Trough Rheumatoid Factor Complement C4 Miscellaneous Test Crossmatch 10/27/16 10/27/16 10/27/16 05:03 06:30 06:30 WBC 13.9 H RBC 3.09 L Hgb 9.2 L Hct 27.5 L MCV MCH MCHC RDW 17.0 H Plt Count Lymph % (Auto) [place] % (Auto) Lymph # [place] # Baso # Seg Neutrophils % Seg Neuts % (Manual) 78.0 H Lymphocytes % (Manual) Monocytes % (Manual) Eosinophils % (Manual) Basophils % (Manual) Nucleated RBC % 2.0 H Seg Neutrophils # Seg Neutrophils # Man 10.8 H Lymphocytes # (Manual) Monocytes # (Manual) 1.0 H Eosinophils # (Manual) PT INR Fibrinogen dRVVT Confirm Interp Factor V Activity POC ABG pH POC ABG pCO2 POC ABG pO2 ABG pO2 ABG HCO3 ABG Hemoglobin Oxyhemoglobin Sodium Potassium Chloride Carbon Dioxide BUN 40 H Creatinine 1.5 H Glucose 135 H POC Glucose 107 H Lactic Acid Calcium 8.3 L Phosphorus 1.30 L D Magnesium Direct Bilirubin AST ALT Alkaline Phosphatase Lactate Dehydrogenase Troponin T C-Reactive Protein Total Protein Albumin Prealbumin Triglycerides Cholesterol LDL Cholesterol Direct HDL Cholesterol Urine pH Urine WBC (Auto) Urine Creatinine Urine Total Protein Fluid Total Protein Vancomycin Trough Rheumatoid Factor Complement C4 Miscellaneous Test Crossmatch 10/27/16 10/27/16 10/27/16 13:27 18:07 23:40 WBC RBC Hgb Hct MCV MCH MCHC RDW Plt Count Lymph % (Auto) [place] % (Auto) Lymph # [place] # Baso # Seg Neutrophils % Seg Neuts % (Manual) Lymphocytes % (Manual) Monocytes % (Manual) Eosinophils % (Manual) Basophils % (Manual) Nucleated RBC % Seg Neutrophils # Seg Neutrophils # Man Lymphocytes # (Manual) Monocytes # (Manual) Eosinophils # (Manual) PT INR Fibrinogen dRVVT Confirm Interp Factor V Activity POC ABG pH POC ABG pCO2 POC ABG pO2 ABG pO2 ABG HCO3 ABG Hemoglobin Oxyhemoglobin Sodium Potassium Chloride Carbon Dioxide BUN Creatinine Glucose POC Glucose 117 H 121 H 118 H Lactic Acid Calcium Phosphorus Magnesium Direct Bilirubin AST ALT Alkaline Phosphatase Lactate Dehydrogenase Troponin T C-Reactive Protein Total Protein Albumin Prealbumin Triglycerides Cholesterol LDL Cholesterol Direct HDL Cholesterol Urine pH Urine WBC (Auto) Urine Creatinine Urine Total Protein Fluid Total Protein Vancomycin Trough Rheumatoid Factor Complement C4 Miscellaneous Test Crossmatch 10/28/16 10/28/16 10/28/16 05:48 06:45 06:45 WBC 14.7 H RBC 3.05 L Hgb 9.0 L Hct 26.9 L MCV MCH MCHC RDW 16.8 H Plt Count Lymph % (Auto) 8.2 L [place] % (Auto) 8.4 H Lymph # [place] # 1.2 H Baso # Seg Neutrophils % 81.9 H Seg Neuts % (Manual) Lymphocytes % (Manual) Monocytes % (Manual) Eosinophils % (Manual) Basophils % (Manual) Nucleated RBC % Seg Neutrophils # 12.1 H Seg Neutrophils # Man Lymphocytes # (Manual) Monocytes # (Manual) Eosinophils # (Manual) PT INR Fibrinogen dRVVT Confirm Interp Factor V Activity POC ABG pH POC ABG pCO2 POC ABG pO2 ABG pO2 ABG HCO3 ABG Hemoglobin Oxyhemoglobin Sodium Potassium Chloride Carbon Dioxide BUN 60 H Creatinine 1.9 H Glucose 120 H POC Glucose 114 H Lactic Acid Calcium Phosphorus Magnesium Direct Bilirubin AST ALT Alkaline Phosphatase Lactate Dehydrogenase Troponin T C-Reactive Protein Total Protein Albumin Prealbumin Triglycerides Cholesterol LDL Cholesterol Direct HDL Cholesterol Urine pH Urine WBC (Auto) Urine Creatinine Urine Total Protein Fluid Total Protein Vancomycin Trough Rheumatoid Factor Complement C4 Miscellaneous Test Crossmatch 10/28/16 10/28/16 10/29/16 17:08 23:50 05:10 WBC RBC Hgb Hct MCV MCH MCHC RDW Plt Count Lymph % (Auto) [place] % (Auto) Lymph # [place] # Baso # Seg Neutrophils % Seg Neuts % (Manual) Lymphocytes % (Manual) Monocytes % (Manual) Eosinophils % (Manual) Basophils % (Manual) Nucleated RBC % Seg Neutrophils # Seg Neutrophils # Man Lymphocytes # (Manual) Monocytes # (Manual) Eosinophils # (Manual) PT INR Fibrinogen dRVVT Confirm Interp Factor V Activity POC ABG pH POC ABG pCO2 POC ABG pO2 ABG pO2 ABG HCO3 ABG Hemoglobin Oxyhemoglobin Sodium Potassium Chloride Carbon Dioxide BUN Creatinine Glucose POC Glucose 109 H 110 H 124 H Lactic Acid Calcium Phosphorus Magnesium Direct Bilirubin AST ALT Alkaline Phosphatase Lactate Dehydrogenase Troponin T C-Reactive Protein Total Protein Albumin Prealbumin Triglycerides Cholesterol LDL Cholesterol Direct HDL Cholesterol Urine pH Urine WBC (Auto) Urine Creatinine Urine Total Protein Fluid Total Protein Vancomycin Trough Rheumatoid Factor Complement C4 Miscellaneous Test Crossmatch 10/29/16 10/29/16 10/29/16 07:45 07:45 12:19 WBC 14.7 H RBC 3.15 L Hgb 9.3 L Hct 28.9 L MCV MCH MCHC RDW 17.0 H Plt Count Lymph % (Auto) 11.9 L [place] % (Auto) 8.6 H Lymph # [place] # 1.3 H Baso # Seg Neutrophils % 78.1 H Seg Neuts % (Manual) Lymphocytes % (Manual) Monocytes % (Manual) Eosinophils % (Manual) Basophils % (Manual) Nucleated RBC % Seg Neutrophils # 11.4 H Seg Neutrophils # Man Lymphocytes # (Manual) Monocytes # (Manual) Eosinophils # (Manual) PT INR Fibrinogen dRVVT Confirm Interp Factor V Activity POC ABG pH POC ABG pCO2 POC ABG pO2 ABG pO2 ABG HCO3 ABG Hemoglobin Oxyhemoglobin Sodium Potassium 5.1 H Chloride Carbon Dioxide 19 L BUN 78 H Creatinine 2.2 H Glucose 116 H POC Glucose 118 H Lactic Acid Calcium Phosphorus Magnesium Direct Bilirubin AST ALT Alkaline Phosphatase Lactate Dehydrogenase Troponin T C-Reactive Protein Total Protein Albumin Prealbumin Triglycerides Cholesterol LDL Cholesterol Direct HDL Cholesterol Urine pH Urine WBC (Auto) Urine Creatinine Urine Total Protein Fluid Total Protein Vancomycin Trough Rheumatoid Factor Complement C4 Miscellaneous Test Crossmatch 10/29/16 10/30/16 10/30/16 17:49 01:52 03:28 WBC RBC Hgb Hct MCV MCH MCHC RDW Plt Count Lymph % (Auto) [place] % (Auto) Lymph # [place] # Baso # Seg Neutrophils % Seg Neuts % (Manual) Lymphocytes % (Manual) Monocytes % (Manual) Eosinophils % (Manual) Basophils % (Manual) Nucleated RBC % Seg Neutrophils # Seg Neutrophils # Man Lymphocytes # (Manual) Monocytes # (Manual) Eosinophils # (Manual) PT INR Fibrinogen dRVVT Confirm Interp Factor V Activity POC ABG pH POC ABG pCO2 POC ABG pO2 ABG pO2 ABG HCO3 ABG Hemoglobin Oxyhemoglobin Sodium Potassium 5.4 H Chloride 97.5 L Carbon Dioxide 19 L BUN 90 H Creatinine 2.5 H Glucose POC Glucose 120 H 129 H Lactic Acid Calcium Phosphorus 5.20 H Magnesium Direct Bilirubin AST ALT Alkaline Phosphatase Lactate Dehydrogenase Troponin T C-Reactive Protein Total Protein Albumin Prealbumin Triglycerides Cholesterol LDL Cholesterol Direct HDL Cholesterol Urine pH Urine WBC (Auto) Urine Creatinine Urine Total Protein Fluid Total Protein Vancomycin Trough Rheumatoid Factor Complement C4 Miscellaneous Test Crossmatch 10/30/16 10/30/16 10/30/16 03:28 08:19 08:19 WBC 11.6 H 15.9 H RBC 2.75 L 2.82 L Hgb 7.9 L 8.3 L Hct 24.2 L 25.2 L MCV MCH MCHC RDW 16.7 H 17.2 H Plt Count Lymph % (Auto) [place] % (Auto) 9.8 H Lymph # [place] # 1.1 H Baso # Seg Neutrophils % 74.2 H Seg Neuts % (Manual) Lymphocytes % (Manual) Monocytes % (Manual) Eosinophils % (Manual) Basophils % (Manual) Nucleated RBC % Seg Neutrophils # 8.6 H Seg Neutrophils # Man Lymphocytes # (Manual) Monocytes # (Manual) Eosinophils # (Manual) PT INR Fibrinogen dRVVT Confirm Interp Factor V Activity POC ABG pH POC ABG pCO2 POC ABG pO2 ABG pO2 ABG HCO3 ABG Hemoglobin Oxyhemoglobin Sodium Potassium 5.3 H Chloride 97.4 L Carbon Dioxide 19 L BUN 93 H Creatinine 2.6 H Glucose POC Glucose Lactic Acid Calcium Phosphorus Magnesium Direct Bilirubin AST ALT Alkaline Phosphatase Lactate Dehydrogenase Troponin T C-Reactive Protein Total Protein Albumin Prealbumin Triglycerides Cholesterol LDL Cholesterol Direct HDL Cholesterol Urine pH Urine WBC (Auto) Urine Creatinine Urine Total Protein Fluid Total Protein Vancomycin Trough Rheumatoid Factor Complement C4 Miscellaneous Test Crossmatch 10/30/16 10/30/16 10/31/16 17:11 23:56 00:40 WBC RBC Hgb Hct MCV MCH MCHC RDW Plt Count Lymph % (Auto) [place] % (Auto) Lymph # [place] # Baso # Seg Neutrophils % Seg Neuts % (Manual) Lymphocytes % (Manual) Monocytes % (Manual) Eosinophils % (Manual) Basophils % (Manual) Nucleated RBC % Seg Neutrophils # Seg Neutrophils # Man Lymphocytes # (Manual) Monocytes # (Manual) Eosinophils # (Manual) PT INR Fibrinogen dRVVT Confirm Interp Factor V Activity POC ABG pH POC ABG pCO2 POC ABG pO2 ABG pO2 ABG HCO3 ABG Hemoglobin Oxyhemoglobin Sodium Potassium Chloride Carbon Dioxide BUN Creatinine Glucose POC Glucose 106 H 117 H 120 H Lactic Acid Calcium Phosphorus Magnesium Direct Bilirubin AST ALT Alkaline Phosphatase Lactate Dehydrogenase Troponin T C-Reactive Protein Total Protein Albumin Prealbumin Triglycerides Cholesterol LDL Cholesterol Direct HDL Cholesterol Urine pH Urine WBC (Auto) Urine Creatinine Urine Total Protein Fluid Total Protein Vancomycin Trough Rheumatoid Factor Complement C4 Miscellaneous Test Crossmatch 10/31/16 10/31/16 10/31/16 05:43 07:15 07:15 WBC 12.1 H RBC 2.63 L Hgb 7.7 L Hct 23.3 L MCV MCH MCHC RDW 16.7 H Plt Count Lymph % (Auto) 11.7 L [place] % (Auto) 7.7 H Lymph # [place] # 0.9 H Baso # Seg Neutrophils % 78.0 H Seg Neuts % (Manual) Lymphocytes % (Manual) Monocytes % (Manual) Eosinophils % (Manual) Basophils % (Manual) Nucleated RBC % Seg Neutrophils # 9.4 H Seg Neutrophils # Man Lymphocytes # (Manual) Monocytes # (Manual) Eosinophils # (Manual) PT INR Fibrinogen dRVVT Confirm Interp Factor V Activity POC ABG pH POC ABG pCO2 POC ABG pO2 ABG pO2 ABG HCO3 ABG Hemoglobin Oxyhemoglobin Sodium Potassium Chloride 96.4 L Carbon Dioxide 21 L BUN 99 H Creatinine 2.6 H Glucose 144 H POC Glucose 125 H Lactic Acid Calcium Phosphorus 4.80 H Magnesium Direct Bilirubin AST ALT Alkaline Phosphatase Lactate Dehydrogenase Troponin T C-Reactive Protein Total Protein Albumin Prealbumin Triglycerides Cholesterol LDL Cholesterol Direct HDL Cholesterol Urine pH Urine WBC (Auto) Urine Creatinine Urine Total Protein Fluid Total Protein Vancomycin Trough Rheumatoid Factor Complement C4 Miscellaneous Test Crossmatch 10/31/16 10/31/16 11/01/16 11:46 18:34 00:20 WBC RBC Hgb Hct MCV MCH MCHC RDW Plt Count Lymph % (Auto) [place] % (Auto) Lymph # [place] # Baso # Seg Neutrophils % Seg Neuts % (Manual) Lymphocytes % (Manual) Monocytes % (Manual) Eosinophils % (Manual) Basophils % (Manual) Nucleated RBC % Seg Neutrophils # Seg Neutrophils # Man Lymphocytes # (Manual) Monocytes # (Manual) Eosinophils # (Manual) PT INR Fibrinogen dRVVT Confirm Interp Factor V Activity POC ABG pH POC ABG pCO2 POC ABG pO2 ABG pO2 ABG HCO3 ABG Hemoglobin Oxyhemoglobin Sodium Potassium Chloride Carbon Dioxide BUN Creatinine Glucose POC Glucose 159 H 140 H 132 H Lactic Acid Calcium Phosphorus Magnesium Direct Bilirubin AST ALT Alkaline Phosphatase Lactate Dehydrogenase Troponin T C-Reactive Protein Total Protein Albumin Prealbumin Triglycerides Cholesterol LDL Cholesterol Direct HDL Cholesterol Urine pH Urine WBC (Auto) Urine Creatinine Urine Total Protein Fluid Total Protein Vancomycin Trough Rheumatoid Factor Complement C4 Miscellaneous Test Crossmatch 11/01/16 11/01/16 11/01/16 04:55 04:55 06:11 WBC 11.2 H RBC 2.68 L Hgb 7.5 L Hct 23.7 L MCV MCH MCHC RDW 16.1 H Plt Count Lymph % (Auto) [place] % (Auto) 9.8 H Lymph # [place] # 1.1 H Baso # Seg Neutrophils % 70.8 H Seg Neuts % (Manual) Lymphocytes % (Manual) Monocytes % (Manual) Eosinophils % (Manual) Basophils % (Manual) Nucleated RBC % Seg Neutrophils # 7.9 H Seg Neutrophils # Man Lymphocytes # (Manual) Monocytes # (Manual) Eosinophils # (Manual) PT INR Fibrinogen dRVVT Confirm Interp Factor V Activity POC ABG pH POC ABG pCO2 POC ABG pO2 ABG pO2 ABG HCO3 ABG Hemoglobin Oxyhemoglobin Sodium Potassium 3.3 L D Chloride Carbon Dioxide BUN 61 H Creatinine 1.9 H Glucose 114 H POC Glucose 115 H Lactic Acid Calcium Phosphorus 1.80 L D Magnesium Direct Bilirubin AST ALT Alkaline Phosphatase Lactate Dehydrogenase Troponin T C-Reactive Protein Total Protein Albumin Prealbumin Triglycerides Cholesterol LDL Cholesterol Direct HDL Cholesterol Urine pH Urine WBC (Auto) Urine Creatinine Urine Total Protein Fluid Total Protein Vancomycin Trough Rheumatoid Factor Complement C4 Miscellaneous Test Crossmatch 11/01/16 11/01/16 11/01/16 12:29 18:23 23:58 WBC RBC Hgb Hct MCV MCH MCHC RDW Plt Count Lymph % (Auto) [place] % (Auto) Lymph # [place] # Baso # Seg Neutrophils % Seg Neuts % (Manual) Lymphocytes % (Manual) Monocytes % (Manual) Eosinophils % (Manual) Basophils % (Manual) Nucleated RBC % Seg Neutrophils # Seg Neutrophils # Man Lymphocytes # (Manual) Monocytes # (Manual) Eosinophils # (Manual) PT INR Fibrinogen dRVVT Confirm Interp Factor V Activity POC ABG pH POC ABG pCO2 POC ABG pO2 ABG pO2 ABG HCO3 ABG Hemoglobin Oxyhemoglobin Sodium Potassium Chloride Carbon Dioxide BUN Creatinine Glucose POC Glucose 142 H 143 H 128 H Lactic Acid Calcium Phosphorus Magnesium Direct Bilirubin AST ALT Alkaline Phosphatase Lactate Dehydrogenase Troponin T C-Reactive Protein Total Protein Albumin Prealbumin Triglycerides Cholesterol LDL Cholesterol Direct HDL Cholesterol Urine pH Urine WBC (Auto) Urine Creatinine Urine Total Protein Fluid Total Protein Vancomycin Trough Rheumatoid Factor Complement C4 Miscellaneous Test Crossmatch 11/02/16 11/02/16 11/02/16 04:16 05:29 11:58 WBC RBC Hgb Hct MCV MCH MCHC RDW Plt Count Lymph % (Auto) [place] % (Auto) Lymph # [place] # Baso # Seg Neutrophils % Seg Neuts % (Manual) Lymphocytes % (Manual) Monocytes % (Manual) Eosinophils % (Manual) Basophils % (Manual) Nucleated RBC % Seg Neutrophils # Seg Neutrophils # Man Lymphocytes # (Manual) Monocytes # (Manual) Eosinophils # (Manual) PT INR Fibrinogen dRVVT Confirm Interp Factor V Activity POC ABG pH POC ABG pCO2 POC ABG pO2 ABG pO2 ABG HCO3 ABG Hemoglobin Oxyhemoglobin Sodium Potassium 3.1 L Chloride Carbon Dioxide BUN 73 H Creatinine 2.3 H Glucose 112 H POC Glucose 135 H 149 H Lactic Acid Calcium Phosphorus Magnesium Direct Bilirubin AST ALT Alkaline Phosphatase Lactate Dehydrogenase Troponin T C-Reactive Protein Total Protein Albumin Prealbumin Triglycerides Cholesterol LDL Cholesterol Direct HDL Cholesterol Urine pH Urine WBC (Auto) Urine Creatinine Urine Total Protein Fluid Total Protein Vancomycin Trough Rheumatoid Factor Complement C4 Miscellaneous Test Crossmatch 11/02/16 11/02/16 11/03/16 17:42 22:54 06:00 WBC RBC Hgb Hct MCV MCH MCHC RDW Plt Count Lymph % (Auto) [place] % (Auto) Lymph # [place] # Baso # Seg Neutrophils % Seg Neuts % (Manual) Lymphocytes % (Manual) Monocytes % (Manual) Eosinophils % (Manual) Basophils % (Manual) Nucleated RBC % Seg Neutrophils # Seg Neutrophils # Man Lymphocytes # (Manual) Monocytes # (Manual) Eosinophils # (Manual) PT INR Fibrinogen dRVVT Confirm Interp Factor V Activity POC ABG pH POC ABG pCO2 POC ABG pO2 ABG pO2 ABG HCO3 ABG Hemoglobin Oxyhemoglobin Sodium Potassium Chloride 96.7 L Carbon Dioxide BUN 41 H Creatinine 1.5 H Glucose 145 H POC Glucose 182 H 115 H Lactic Acid Calcium Phosphorus 1.60 L D Magnesium 1.50 L Direct Bilirubin AST ALT Alkaline Phosphatase Lactate Dehydrogenase Troponin T C-Reactive Protein Total Protein Albumin Prealbumin Triglycerides Cholesterol LDL Cholesterol Direct HDL Cholesterol Urine pH Urine WBC (Auto) Urine Creatinine Urine Total Protein Fluid Total Protein Vancomycin Trough Rheumatoid Factor Complement C4 Miscellaneous Test Crossmatch 11/03/16 11/03/16 11/03/16 11:53 17:45 23:37 WBC RBC Hgb Hct MCV MCH MCHC RDW Plt Count Lymph % (Auto) [place] % (Auto) Lymph # [place] # Baso # Seg Neutrophils % Seg Neuts % (Manual) Lymphocytes % (Manual) Monocytes % (Manual) Eosinophils % (Manual) Basophils % (Manual) Nucleated RBC % Seg Neutrophils # Seg Neutrophils # Man Lymphocytes # (Manual) Monocytes # (Manual) Eosinophils # (Manual) PT INR Fibrinogen dRVVT Confirm Interp Factor V Activity POC ABG pH POC ABG pCO2 POC ABG pO2 ABG pO2 ABG HCO3 ABG Hemoglobin Oxyhemoglobin Sodium Potassium Chloride Carbon Dioxide BUN Creatinine Glucose POC Glucose 131 H 134 H 113 H Lactic Acid Calcium Phosphorus Magnesium Direct Bilirubin AST ALT Alkaline Phosphatase Lactate Dehydrogenase Troponin T C-Reactive Protein Total Protein Albumin Prealbumin Triglycerides Cholesterol LDL Cholesterol Direct HDL Cholesterol Urine pH Urine WBC (Auto) Urine Creatinine Urine Total Protein Fluid Total Protein Vancomycin Trough Rheumatoid Factor Complement C4 Miscellaneous Test Crossmatch 11/04/16 11/04/16 11/04/16 05:41 06:00 12:10 WBC RBC Hgb Hct MCV MCH MCHC RDW Plt Count Lymph % (Auto) [place] % (Auto) Lymph # [place] # Baso # Seg Neutrophils % Seg Neuts % (Manual) Lymphocytes % (Manual) Monocytes % (Manual) Eosinophils % (Manual) Basophils % (Manual) Nucleated RBC % Seg Neutrophils # Seg Neutrophils # Man Lymphocytes # (Manual) Monocytes # (Manual) Eosinophils # (Manual) PT INR Fibrinogen dRVVT Confirm Interp Factor V Activity POC ABG pH POC ABG pCO2 POC ABG pO2 ABG pO2 ABG HCO3 ABG Hemoglobin Oxyhemoglobin Sodium Potassium Chloride 96.7 L Carbon Dioxide BUN 52 H Creatinine 1.9 H Glucose 126 H POC Glucose 137 H 191 H Lactic Acid Calcium Phosphorus Magnesium Direct Bilirubin AST ALT Alkaline Phosphatase Lactate Dehydrogenase Troponin T C-Reactive Protein Total Protein Albumin Prealbumin Triglycerides Cholesterol LDL Cholesterol Direct HDL Cholesterol Urine pH Urine WBC (Auto) Urine Creatinine Urine Total Protein Fluid Total Protein Vancomycin Trough Rheumatoid Factor Complement C4 Miscellaneous Test Crossmatch 11/04/16 11/05/16 11/05/16 22:57 03:10 05:10 WBC RBC Hgb Hct MCV MCH MCHC RDW Plt Count Lymph % (Auto) [place] % (Auto) Lymph # [place] # Baso # Seg Neutrophils % Seg Neuts % (Manual) Lymphocytes % (Manual) Monocytes % (Manual) Eosinophils % (Manual) Basophils % (Manual) Nucleated RBC % Seg Neutrophils # Seg Neutrophils # Man Lymphocytes # (Manual) Monocytes # (Manual) Eosinophils # (Manual) PT INR Fibrinogen dRVVT Confirm Interp Factor V Activity POC ABG pH POC ABG pCO2 POC ABG pO2 ABG pO2 ABG HCO3 ABG Hemoglobin Oxyhemoglobin Sodium 136 L Potassium Chloride 97.2 L Carbon Dioxide BUN 32 H Creatinine 1.3 H Glucose 123 H POC Glucose 125 H 108 H Lactic Acid Calcium 7.8 L Phosphorus Magnesium Direct Bilirubin AST ALT Alkaline Phosphatase Lactate Dehydrogenase Troponin T C-Reactive Protein Total Protein Albumin Prealbumin Triglycerides Cholesterol LDL Cholesterol Direct HDL Cholesterol Urine pH Urine WBC (Auto) Urine Creatinine Urine Total Protein Fluid Total Protein Vancomycin Trough Rheumatoid Factor Complement C4 Miscellaneous Test Crossmatch 11/05/16 11/05/16 11/05/16 12:23 13:09 13:25 WBC RBC Hgb Hct MCV MCH MCHC RDW Plt Count Lymph % (Auto) [place] % (Auto) Lymph # [place] # Baso # Seg Neutrophils % Seg Neuts % (Manual) Lymphocytes % (Manual) Monocytes % (Manual) Eosinophils % (Manual) Basophils % (Manual) Nucleated RBC % Seg Neutrophils # Seg Neutrophils # Man Lymphocytes # (Manual) Monocytes # (Manual) Eosinophils # (Manual) PT INR Fibrinogen dRVVT Confirm Interp Factor V Activity POC ABG pH POC ABG pCO2 POC ABG pO2 ABG pO2 ABG HCO3 ABG Hemoglobin Oxyhemoglobin Sodium Potassium Chloride Carbon Dioxide BUN Creatinine Glucose POC Glucose 124 H Lactic Acid Calcium Phosphorus Magnesium Direct Bilirubin AST ALT Alkaline Phosphatase Lactate Dehydrogenase Troponin T C-Reactive Protein 11.40 H Total Protein Albumin Prealbumin Triglycerides Cholesterol LDL Cholesterol Direct HDL Cholesterol Urine pH 9.0 H Urine WBC (Auto) Urine Creatinine Urine Total Protein Fluid Total Protein Vancomycin Trough Rheumatoid Factor Complement C4 Miscellaneous Test Crossmatch 11/05/16 11/05/16 11/05/16 13:25 17:54 23:42 WBC RBC Hgb Hct MCV MCH MCHC RDW Plt Count Lymph % (Auto) [place] % (Auto) Lymph # [place] # Baso # Seg Neutrophils % Seg Neuts % (Manual) Lymphocytes % (Manual) Monocytes % (Manual) Eosinophils % (Manual) Basophils % (Manual) Nucleated RBC % Seg Neutrophils # Seg Neutrophils # Man Lymphocytes # (Manual) Monocytes # (Manual) Eosinophils # (Manual) PT INR Fibrinogen dRVVT Confirm Interp Factor V Activity POC ABG pH POC ABG pCO2 POC ABG pO2 ABG pO2 ABG HCO3 ABG Hemoglobin Oxyhemoglobin Sodium Potassium Chloride Carbon Dioxide BUN Creatinine Glucose POC Glucose 114 H 134 H Lactic Acid Calcium Phosphorus Magnesium Direct Bilirubin AST ALT Alkaline Phosphatase Lactate Dehydrogenase Troponin T C-Reactive Protein Total Protein Albumin Prealbumin Triglycerides Cholesterol LDL Cholesterol Direct HDL Cholesterol Urine pH Urine WBC (Auto) Urine Creatinine Urine Total Protein Fluid Total Protein Vancomycin Trough Rheumatoid Factor Complement C4 Miscellaneous Test Flexitest 1 H Crossmatch 11/06/16 11/06/16 11/06/16 04:56 06:25 06:25 WBC RBC 2.50 L Hgb 7.3 L Hct 22.5 L MCV MCH MCHC RDW 16.9 H Plt Count Lymph % (Auto) [place] % (Auto) 10.5 H Lymph # [place] # 1.1 H Baso # Seg Neutrophils % Seg Neuts % (Manual) Lymphocytes % (Manual) Monocytes % (Manual) Eosinophils % (Manual) Basophils % (Manual) Nucleated RBC % Seg Neutrophils # Seg Neutrophils # Man Lymphocytes # (Manual) Monocytes # (Manual) Eosinophils # (Manual) PT INR Fibrinogen dRVVT Confirm Interp Factor V Activity POC ABG pH POC ABG pCO2 POC ABG pO2 ABG pO2 ABG HCO3 ABG Hemoglobin Oxyhemoglobin Sodium Potassium 5.1 H Chloride 95.9 L Carbon Dioxide BUN 52 H Creatinine 1.8 H Glucose 117 H POC Glucose 120 H Lactic Acid Calcium Phosphorus Magnesium Direct Bilirubin AST 103 H ALT 77 H Alkaline Phosphatase 285 H Lactate Dehydrogenase Troponin T C-Reactive Protein Total Protein 6.2 L Albumin 1.8 L Prealbumin 0.180 L Triglycerides Cholesterol LDL Cholesterol Direct HDL Cholesterol Urine pH Urine WBC (Auto) Urine Creatinine Urine Total Protein Fluid Total Protein Vancomycin Trough Rheumatoid Factor Complement C4 Miscellaneous Test Crossmatch 11/06/16 11/06/16 11/06/16 11:56 17:14 23:52 WBC RBC Hgb Hct MCV MCH MCHC RDW Plt Count Lymph % (Auto) [place] % (Auto) Lymph # [place] # Baso # Seg Neutrophils % Seg Neuts % (Manual) Lymphocytes % (Manual) Monocytes % (Manual) Eosinophils % (Manual) Basophils % (Manual) Nucleated RBC % Seg Neutrophils # Seg Neutrophils # Man Lymphocytes # (Manual) Monocytes # (Manual) Eosinophils # (Manual) PT INR Fibrinogen dRVVT Confirm Interp Factor V Activity POC ABG pH POC ABG pCO2 POC ABG pO2 ABG pO2 ABG HCO3 ABG Hemoglobin Oxyhemoglobin Sodium Potassium Chloride Carbon Dioxide BUN Creatinine Glucose POC Glucose 141 H 125 H 130 H Lactic Acid Calcium Phosphorus Magnesium Direct Bilirubin AST ALT Alkaline Phosphatase Lactate Dehydrogenase Troponin T C-Reactive Protein Total Protein Albumin Prealbumin Triglycerides Cholesterol LDL Cholesterol Direct HDL Cholesterol Urine pH Urine WBC (Auto) Urine Creatinine Urine Total Protein Fluid Total Protein Vancomycin Trough Rheumatoid Factor Complement C4 Miscellaneous Test Crossmatch 11/07/16 11/07/16 11/07/16 06:30 06:30 09:37 WBC RBC 2.18 L Hgb 6.3 L Hct 19.7 L* MCV MCH MCHC RDW 16.8 H Plt Count Lymph % (Auto) [place] % (Auto) 10.0 H Lymph # [place] # 1.0 H Baso # Seg Neutrophils % Seg Neuts % (Manual) Lymphocytes % (Manual) Monocytes % (Manual) Eosinophils % (Manual) Basophils % (Manual) Nucleated RBC % Seg Neutrophils # Seg Neutrophils # Man Lymphocytes # (Manual) Monocytes # (Manual) Eosinophils # (Manual) PT INR Fibrinogen dRVVT Confirm Interp Factor V Activity POC ABG pH POC ABG pCO2 POC ABG pO2 ABG pO2 ABG HCO3 ABG Hemoglobin Oxyhemoglobin Sodium 135 L Potassium Chloride 95.6 L Carbon Dioxide BUN 70 H Creatinine 2.0 H Glucose 126 H POC Glucose Lactic Acid Calcium Phosphorus Magnesium Direct Bilirubin AST ALT Alkaline Phosphatase Lactate Dehydrogenase Troponin T C-Reactive Protein Total Protein Albumin Prealbumin Triglycerides Cholesterol LDL Cholesterol Direct HDL Cholesterol Urine pH Urine WBC (Auto) Urine Creatinine Urine Total Protein Fluid Total Protein Vancomycin Trough Rheumatoid Factor Complement C4 Miscellaneous Test Crossmatch See Detail 11/07/16 11/07/16 11/07/16 12:52 18:51 21:26 WBC RBC Hgb Hct MCV MCH MCHC RDW Plt Count Lymph % (Auto) [place] % (Auto) Lymph # [place] # Baso # Seg Neutrophils % Seg Neuts % (Manual) Lymphocytes % (Manual) Monocytes % (Manual) Eosinophils % (Manual) Basophils % (Manual) Nucleated RBC % Seg Neutrophils # Seg Neutrophils # Man Lymphocytes # (Manual) Monocytes # (Manual) Eosinophils # (Manual) PT INR Fibrinogen dRVVT Confirm Interp Factor V Activity POC ABG pH 7.523 H POC ABG pCO2 34.6 L POC ABG pO2 53 L ABG pO2 ABG HCO3 ABG Hemoglobin Oxyhemoglobin Sodium Potassium Chloride Carbon Dioxide BUN Creatinine Glucose POC Glucose 142 H 155 H Lactic Acid Calcium Phosphorus Magnesium Direct Bilirubin AST ALT Alkaline Phosphatase Lactate Dehydrogenase Troponin T C-Reactive Protein Total Protein Albumin Prealbumin Triglycerides Cholesterol LDL Cholesterol Direct HDL Cholesterol Urine pH Urine WBC (Auto) Urine Creatinine Urine Total Protein Fluid Total Protein Vancomycin Trough Rheumatoid Factor Complement C4 Miscellaneous Test Crossmatch 11/07/16 11/08/16 11/08/16 21:34 13:03 23:37 WBC RBC 2.63 L Hgb 7.7 L Hct 22.7 L MCV MCH MCHC RDW 17.0 H Plt Count Lymph % (Auto) [place] % (Auto) Lymph # [place] # Baso # Seg Neutrophils % Seg Neuts % (Manual) Lymphocytes % (Manual) Monocytes % (Manual) Eosinophils % (Manual) Basophils % (Manual) Nucleated RBC % Seg Neutrophils # Seg Neutrophils # Man Lymphocytes # (Manual) Monocytes # (Manual) Eosinophils # (Manual) PT INR Fibrinogen dRVVT Confirm Interp Factor V Activity POC ABG pH 7.478 H POC ABG pCO2 34.0 L POC ABG pO2 50 L ABG pO2 ABG HCO3 ABG Hemoglobin Oxyhemoglobin Sodium Potassium Chloride Carbon Dioxide BUN Creatinine Glucose POC Glucose 113 H Lactic Acid Calcium Phosphorus Magnesium Direct Bilirubin AST ALT Alkaline Phosphatase Lactate Dehydrogenase Troponin T C-Reactive Protein Total Protein Albumin Prealbumin Triglycerides Cholesterol LDL Cholesterol Direct HDL Cholesterol Urine pH Urine WBC (Auto) Urine Creatinine Urine Total Protein Fluid Total Protein Vancomycin Trough Rheumatoid Factor Complement C4 Miscellaneous Test Crossmatch 11/09/16 11/09/16 11/09/16 04:35 10:15 18:21 WBC RBC 2.68 L Hgb 7.8 L Hct 23.3 L MCV MCH MCHC RDW 17.0 H Plt Count Lymph % (Auto) [place] % (Auto) 12.1 H Lymph # [place] # 1.1 H Baso # Seg Neutrophils % Seg Neuts % (Manual) Lymphocytes % (Manual) Monocytes % (Manual) Eosinophils % (Manual) Basophils % (Manual) Nucleated RBC % Seg Neutrophils # Seg Neutrophils # Man Lymphocytes # (Manual) Monocytes # (Manual) Eosinophils # (Manual) PT INR Fibrinogen dRVVT Confirm Interp Factor V Activity POC ABG pH POC ABG pCO2 POC ABG pO2 ABG pO2 ABG HCO3 ABG Hemoglobin Oxyhemoglobin Sodium Potassium Chloride Carbon Dioxide BUN 51 H Creatinine 1.8 H Glucose POC Glucose 60 L Lactic Acid Calcium 8.3 L Phosphorus Magnesium Direct Bilirubin AST ALT Alkaline Phosphatase Lactate Dehydrogenase Troponin T C-Reactive Protein Total Protein Albumin Prealbumin Triglycerides Cholesterol LDL Cholesterol Direct HDL Cholesterol Urine pH Urine WBC (Auto) Urine Creatinine Urine Total Protein Fluid Total Protein Vancomycin Trough Rheumatoid Factor Complement C4 Miscellaneous Test Crossmatch 11/09/16 11/10/16 11/10/16 18:55 07:00 11:51 WBC RBC Hgb Hct MCV MCH MCHC RDW Plt Count Lymph % (Auto) [place] % (Auto) Lymph # [place] # Baso # Seg Neutrophils % Seg Neuts % (Manual) Lymphocytes % (Manual) Monocytes % (Manual) Eosinophils % (Manual) Basophils % (Manual) Nucleated RBC % Seg Neutrophils # Seg Neutrophils # Man Lymphocytes # (Manual) Monocytes # (Manual) Eosinophils # (Manual) PT INR Fibrinogen dRVVT Confirm Interp Factor V Activity POC ABG pH POC ABG pCO2 POC ABG pO2 ABG pO2 ABG HCO3 ABG Hemoglobin Oxyhemoglobin Sodium Potassium 3.0 L D Chloride 97.4 L Carbon Dioxide BUN 28 H Creatinine 1.3 H Glucose POC Glucose 68 L 120 H Lactic Acid Calcium 7.8 L Phosphorus Magnesium Direct Bilirubin AST ALT Alkaline Phosphatase Lactate Dehydrogenase Troponin T C-Reactive Protein Total Protein Albumin Prealbumin Triglycerides Cholesterol LDL Cholesterol Direct HDL Cholesterol Urine pH Urine WBC (Auto) Urine Creatinine Urine Total Protein Fluid Total Protein Vancomycin Trough Rheumatoid Factor Complement C4 Miscellaneous Test Crossmatch 11/10/16 11/11/16 11/11/16 14:20 06:59 06:59 WBC RBC 2.81 L Hgb 8.1 L Hct 24.4 L MCV MCH MCHC RDW 16.4 H Plt Count Lymph % (Auto) [place] % (Auto) 10.8 H Lymph # [place] # 1.0 H Baso # Seg Neutrophils % Seg Neuts % (Manual) Lymphocytes % (Manual) Monocytes % (Manual) Eosinophils % (Manual) Basophils % (Manual) Nucleated RBC % Seg Neutrophils # Seg Neutrophils # Man Lymphocytes # (Manual) Monocytes # (Manual) Eosinophils # (Manual) PT INR Fibrinogen dRVVT Confirm Interp Factor V Activity POC ABG pH POC ABG pCO2 POC ABG pO2 ABG pO2 ABG HCO3 ABG Hemoglobin Oxyhemoglobin Sodium Potassium Chloride Carbon Dioxide BUN Creatinine Glucose POC Glucose Lactic Acid Calcium Phosphorus Magnesium Direct Bilirubin AST ALT Alkaline Phosphatase Lactate Dehydrogenase 196 H Troponin T C-Reactive Protein Total Protein 6.1 L Albumin Prealbumin Triglycerides Cholesterol LDL Cholesterol Direct HDL Cholesterol Urine pH Urine WBC (Auto) Urine Creatinine Urine Total Protein Fluid Total Protein < 3.0 L Vancomycin Trough Rheumatoid Factor Complement C4 Miscellaneous Test Crossmatch 11/11/16 11/11/16 11/12/16 06:59 09:50 04:00 WBC RBC Hgb Hct MCV MCH MCHC RDW Plt Count Lymph % (Auto) [place] % (Auto) Lymph # [place] # Baso # Seg Neutrophils % Seg Neuts % (Manual) Lymphocytes % (Manual) Monocytes % (Manual) Eosinophils % (Manual) Basophils % (Manual) Nucleated RBC % Seg Neutrophils # Seg Neutrophils # Man Lymphocytes # (Manual) Monocytes # (Manual) Eosinophils # (Manual) PT INR 1.18 H Fibrinogen dRVVT Confirm Interp Factor V Activity POC ABG pH POC ABG pCO2 POC ABG pO2 ABG pO2 ABG HCO3 ABG Hemoglobin Oxyhemoglobin Sodium 136 L 133 L Potassium Chloride 96.1 L 94.8 L Carbon Dioxide 21 L BUN 37 H 42 H Creatinine 1.8 H 2.0 H Glucose POC Glucose Lactic Acid Calcium Phosphorus Magnesium Direct Bilirubin AST ALT Alkaline Phosphatase Lactate Dehydrogenase Troponin T C-Reactive Protein Total Protein Albumin Prealbumin Triglycerides Cholesterol LDL Cholesterol Direct HDL Cholesterol Urine pH Urine WBC (Auto) Urine Creatinine Urine Total Protein Fluid Total Protein Vancomycin Trough Rheumatoid Factor Complement C4 Miscellaneous Test Crossmatch 11/12/16 11/12/16 11/13/16 04:00 23:55 05:53 WBC RBC Hgb 8.9 L Hct 27.2 L MCV MCH MCHC RDW Plt Count Lymph % (Auto) [place] % (Auto) Lymph # [place] # Baso # Seg Neutrophils % Seg Neuts % (Manual) Lymphocytes % (Manual) Monocytes % (Manual) Eosinophils % (Manual) Basophils % (Manual) Nucleated RBC % Seg Neutrophils # Seg Neutrophils # Man Lymphocytes # (Manual) Monocytes # (Manual) Eosinophils # (Manual) PT INR Fibrinogen dRVVT Confirm Interp Factor V Activity POC ABG pH POC ABG pCO2 POC ABG pO2 ABG pO2 ABG HCO3 ABG Hemoglobin Oxyhemoglobin Sodium Potassium Chloride Carbon Dioxide BUN Creatinine Glucose POC Glucose 132 H 120 H Lactic Acid Calcium Phosphorus Magnesium Direct Bilirubin AST ALT Alkaline Phosphatase Lactate Dehydrogenase Troponin T C-Reactive Protein Total Protein Albumin Prealbumin Triglycerides Cholesterol LDL Cholesterol Direct HDL Cholesterol Urine pH Urine WBC (Auto) Urine Creatinine Urine Total Protein Fluid Total Protein Vancomycin Trough Rheumatoid Factor Complement C4 Miscellaneous Test Crossmatch 11/13/16 11/13/16 11/13/16 11:43 17:09 23:41 WBC RBC Hgb Hct MCV MCH MCHC RDW Plt Count Lymph % (Auto) [place] % (Auto) Lymph # [place] # Baso # Seg Neutrophils % Seg Neuts % (Manual) Lymphocytes % (Manual) Monocytes % (Manual) Eosinophils % (Manual) Basophils % (Manual) Nucleated RBC % Seg Neutrophils # Seg Neutrophils # Man Lymphocytes # (Manual) Monocytes # (Manual) Eosinophils # (Manual) PT INR Fibrinogen dRVVT Confirm Interp Factor V Activity POC ABG pH POC ABG pCO2 POC ABG pO2 ABG pO2 ABG HCO3 ABG Hemoglobin Oxyhemoglobin Sodium Potassium Chloride Carbon Dioxide BUN Creatinine Glucose POC Glucose 114 H 113 H 108 H Lactic Acid Calcium Phosphorus Magnesium Direct Bilirubin AST ALT Alkaline Phosphatase Lactate Dehydrogenase Troponin T C-Reactive Protein Total Protein Albumin Prealbumin Triglycerides Cholesterol LDL Cholesterol Direct HDL Cholesterol Urine pH Urine WBC (Auto) Urine Creatinine Urine Total Protein Fluid Total Protein Vancomycin Trough Rheumatoid Factor Complement C4 Miscellaneous Test Crossmatch 11/13/16 11/15/16 11/15/16 Unknown 00:37 03:30 WBC 11.2 H RBC 2.72 L Hgb 7.6 L Hct 23.4 L MCV MCH MCHC RDW 16.5 H Plt Count Lymph % (Auto) [place] % (Auto) Lymph # [place] # Baso # Seg Neutrophils % Seg Neuts % (Manual) Lymphocytes % (Manual) Monocytes % (Manual) Eosinophils % (Manual) Basophils % (Manual) Nucleated RBC % Seg Neutrophils # Seg Neutrophils # Man Lymphocytes # (Manual) Monocytes # (Manual) Eosinophils # (Manual) PT INR Fibrinogen dRVVT Confirm Interp Factor V Activity POC ABG pH POC ABG pCO2 POC ABG pO2 ABG pO2 ABG HCO3 ABG Hemoglobin Oxyhemoglobin Sodium 135 L Potassium Chloride 95.2 L Carbon Dioxide BUN 52 H Creatinine 2.2 H Glucose POC Glucose 108 H Lactic Acid Calcium Phosphorus Magnesium Direct Bilirubin AST ALT Alkaline Phosphatase Lactate Dehydrogenase Troponin T C-Reactive Protein Total Protein Albumin Prealbumin Triglycerides Cholesterol LDL Cholesterol Direct HDL Cholesterol Urine pH Urine WBC (Auto) Urine Creatinine Urine Total Protein Fluid Total Protein Vancomycin Trough Rheumatoid Factor Complement C4 Miscellaneous Test Crossmatch 11/15/16 11/15/16 11/15/16 03:30 05:04 11:50 WBC RBC Hgb Hct MCV MCH MCHC RDW Plt Count Lymph % (Auto) [place] % (Auto) Lymph # [place] # Baso # Seg Neutrophils % Seg Neuts % (Manual) Lymphocytes % (Manual) Monocytes % (Manual) Eosinophils % (Manual) Basophils % (Manual) Nucleated RBC % Seg Neutrophils # Seg Neutrophils # Man Lymphocytes # (Manual) Monocytes # (Manual) Eosinophils # (Manual) PT INR Fibrinogen dRVVT Confirm Interp Factor V Activity POC ABG pH POC ABG pCO2 POC ABG pO2 ABG pO2 ABG HCO3 ABG Hemoglobin Oxyhemoglobin Sodium Potassium 3.4 L Chloride Carbon Dioxide BUN 25 H Creatinine 1.5 H Glucose 103 H POC Glucose 121 H 144 H Lactic Acid Calcium Phosphorus Magnesium Direct Bilirubin AST ALT Alkaline Phosphatase Lactate Dehydrogenase Troponin T C-Reactive Protein Total Protein Albumin Prealbumin Triglycerides Cholesterol LDL Cholesterol Direct HDL Cholesterol Urine pH Urine WBC (Auto) Urine Creatinine Urine Total Protein Fluid Total Protein Vancomycin Trough Rheumatoid Factor Complement C4 Miscellaneous Test Crossmatch 11/15/16 11/15/16 11/16/16 21:28 23:20 11:44 WBC RBC Hgb Hct MCV MCH MCHC RDW Plt Count Lymph % (Auto) [place] % (Auto) Lymph # [place] # Baso # Seg Neutrophils % Seg Neuts % (Manual) Lymphocytes % (Manual) Monocytes % (Manual) Eosinophils % (Manual) Basophils % (Manual) Nucleated RBC % Seg Neutrophils # Seg Neutrophils # Man Lymphocytes # (Manual) Monocytes # (Manual) Eosinophils # (Manual) PT INR Fibrinogen dRVVT Confirm Interp Factor V Activity POC ABG pH 7.462 H POC ABG pCO2 POC ABG pO2 71 L ABG pO2 ABG HCO3 ABG Hemoglobin Oxyhemoglobin Sodium Potassium Chloride Carbon Dioxide BUN Creatinine Glucose POC Glucose 116 H 133 H Lactic Acid Calcium Phosphorus Magnesium Direct Bilirubin AST ALT Alkaline Phosphatase Lactate Dehydrogenase Troponin T C-Reactive Protein Total Protein Albumin Prealbumin Triglycerides Cholesterol LDL Cholesterol Direct HDL Cholesterol Urine pH Urine WBC (Auto) Urine Creatinine Urine Total Protein Fluid Total Protein Vancomycin Trough Rheumatoid Factor Complement C4 Miscellaneous Test Crossmatch 11/16/16 11/16/16 11/16/16 12:20 17:05 23:35 WBC 11.7 H RBC 2.73 L Hgb 7.6 L Hct 23.7 L MCV MCH MCHC RDW 16.6 H Plt Count Lymph % (Auto) [place] % (Auto) Lymph # [place] # Baso # Seg Neutrophils % Seg Neuts % (Manual) Lymphocytes % (Manual) Monocytes % (Manual) Eosinophils % (Manual) Basophils % (Manual) Nucleated RBC % Seg Neutrophils # Seg Neutrophils # Man Lymphocytes # (Manual) Monocytes # (Manual) Eosinophils # (Manual) PT INR Fibrinogen dRVVT Confirm Interp Factor V Activity POC ABG pH POC ABG pCO2 POC ABG pO2 ABG pO2 ABG HCO3 ABG Hemoglobin Oxyhemoglobin Sodium Potassium Chloride Carbon Dioxide BUN Creatinine Glucose POC Glucose 154 H 125 H Lactic Acid Calcium Phosphorus Magnesium Direct Bilirubin AST ALT Alkaline Phosphatase Lactate Dehydrogenase Troponin T C-Reactive Protein Total Protein Albumin Prealbumin Triglycerides Cholesterol LDL Cholesterol Direct HDL Cholesterol Urine pH Urine WBC (Auto) Urine Creatinine Urine Total Protein Fluid Total Protein Vancomycin Trough Rheumatoid Factor Complement C4 Miscellaneous Test Crossmatch 11/17/16 11/17/16 11/17/16 03:20 03:20 03:20 WBC RBC 2.55 L Hgb 7.3 L Hct 21.9 L MCV MCH MCHC RDW 16.6 H Plt Count Lymph % (Auto) [place] % (Auto) 11.5 H Lymph # [place] # 1.1 H Baso # Seg Neutrophils % Seg Neuts % (Manual) Lymphocytes % (Manual) Monocytes % (Manual) Eosinophils % (Manual) Basophils % (Manual) Nucleated RBC % Seg Neutrophils # Seg Neutrophils # Man Lymphocytes # (Manual) Monocytes # (Manual) Eosinophils # (Manual) PT 16.8 H INR 1.37 H Fibrinogen dRVVT Confirm Interp Factor V Activity POC ABG pH POC ABG pCO2 POC ABG pO2 ABG pO2 ABG HCO3 ABG Hemoglobin Oxyhemoglobin Sodium Potassium 3.5 L Chloride Carbon Dioxide BUN 21 H Creatinine Glucose POC Glucose Lactic Acid Calcium 7.9 L Phosphorus Magnesium Direct Bilirubin AST ALT Alkaline Phosphatase Lactate Dehydrogenase Troponin T C-Reactive Protein Total Protein Albumin Prealbumin Triglycerides Cholesterol LDL Cholesterol Direct HDL Cholesterol Urine pH Urine WBC (Auto) Urine Creatinine Urine Total Protein Fluid Total Protein Vancomycin Trough Rheumatoid Factor Complement C4 Miscellaneous Test Crossmatch 11/17/16 11/17/16 11/17/16 06:34 11:21 21:22 WBC RBC Hgb Hct MCV MCH MCHC RDW Plt Count Lymph % (Auto) [place] % (Auto) Lymph # [place] # Baso # Seg Neutrophils % Seg Neuts % (Manual) Lymphocytes % (Manual) Monocytes % (Manual) Eosinophils % (Manual) Basophils % (Manual) Nucleated RBC % Seg Neutrophils # Seg Neutrophils # Man Lymphocytes # (Manual) Monocytes # (Manual) Eosinophils # (Manual) PT INR Fibrinogen dRVVT Confirm Interp Factor V Activity POC ABG pH 7.467 H POC ABG pCO2 POC ABG pO2 73 L ABG pO2 ABG HCO3 ABG Hemoglobin Oxyhemoglobin Sodium Potassium Chloride Carbon Dioxide BUN Creatinine Glucose POC Glucose 121 H 119 H Lactic Acid Calcium Phosphorus Magnesium Direct Bilirubin AST ALT Alkaline Phosphatase Lactate Dehydrogenase Troponin T C-Reactive Protein Total Protein Albumin Prealbumin Triglycerides Cholesterol LDL Cholesterol Direct HDL Cholesterol Urine pH Urine WBC (Auto) Urine Creatinine Urine Total Protein Fluid Total Protein Vancomycin Trough Rheumatoid Factor Complement C4 Miscellaneous Test Crossmatch 11/18/16 11/18/16 11/19/16 12:16 17:19 00:00 WBC RBC Hgb Hct MCV MCH MCHC RDW Plt Count Lymph % (Auto) [place] % (Auto) Lymph # [place] # Baso # Seg Neutrophils % Seg Neuts % (Manual) Lymphocytes % (Manual) Monocytes % (Manual) Eosinophils % (Manual) Basophils % (Manual) Nucleated RBC % Seg Neutrophils # Seg Neutrophils # Man Lymphocytes # (Manual) Monocytes # (Manual) Eosinophils # (Manual) PT INR Fibrinogen dRVVT Confirm Interp Factor V Activity POC ABG pH POC ABG pCO2 POC ABG pO2 ABG pO2 ABG HCO3 ABG Hemoglobin Oxyhemoglobin Sodium Potassium Chloride Carbon Dioxide BUN Creatinine Glucose POC Glucose 124 H 162 H 139 H Lactic Acid Calcium Phosphorus Magnesium Direct Bilirubin AST ALT Alkaline Phosphatase Lactate Dehydrogenase Troponin T C-Reactive Protein Total Protein Albumin Prealbumin Triglycerides Cholesterol LDL Cholesterol Direct HDL Cholesterol Urine pH Urine WBC (Auto) Urine Creatinine Urine Total Protein Fluid Total Protein Vancomycin Trough Rheumatoid Factor Complement C4 Miscellaneous Test Crossmatch 11/19/16 11/19/16 11/20/16 05:00 12:43 00:40 WBC RBC Hgb Hct MCV MCH MCHC RDW Plt Count Lymph % (Auto) [place] % (Auto) Lymph # [place] # Baso # Seg Neutrophils % Seg Neuts % (Manual) Lymphocytes % (Manual) Monocytes % (Manual) Eosinophils % (Manual) Basophils % (Manual) Nucleated RBC % Seg Neutrophils # Seg Neutrophils # Man Lymphocytes # (Manual) Monocytes # (Manual) Eosinophils # (Manual) PT INR Fibrinogen dRVVT Confirm Interp Factor V Activity POC ABG pH POC ABG pCO2 POC ABG pO2 ABG pO2 ABG HCO3 ABG Hemoglobin Oxyhemoglobin Sodium Potassium Chloride Carbon Dioxide BUN Creatinine Glucose POC Glucose 110 H 125 H 136 H Lactic Acid Calcium Phosphorus Magnesium Direct Bilirubin AST ALT Alkaline Phosphatase Lactate Dehydrogenase Troponin T C-Reactive Protein Total Protein Albumin Prealbumin Triglycerides Cholesterol LDL Cholesterol Direct HDL Cholesterol Urine pH Urine WBC (Auto) Urine Creatinine Urine Total Protein Fluid Total Protein Vancomycin Trough Rheumatoid Factor Complement C4 Miscellaneous Test Crossmatch 11/20/16 11/20/16 11/20/16 05:00 05:00 05:51 WBC 13.1 H RBC 2.74 L Hgb 7.7 L Hct 23.6 L MCV MCH MCHC RDW 16.9 H Plt Count Lymph % (Auto) [place] % (Auto) 10.8 H Lymph # [place] # 1.4 H Baso # Seg Neutrophils % Seg Neuts % (Manual) Lymphocytes % (Manual) Monocytes % (Manual) Eosinophils % (Manual) Basophils % (Manual) Nucleated RBC % Seg Neutrophils # 7.9 H Seg Neutrophils # Man Lymphocytes # (Manual) Monocytes # (Manual) Eosinophils # (Manual) PT INR Fibrinogen dRVVT Confirm Interp Factor V Activity POC ABG pH POC ABG pCO2 POC ABG pO2 ABG pO2 ABG HCO3 ABG Hemoglobin Oxyhemoglobin Sodium Potassium Chloride Carbon Dioxide BUN 31 H Creatinine 1.8 H Glucose 129 H POC Glucose 133 H Lactic Acid Calcium Phosphorus Magnesium Direct Bilirubin AST ALT Alkaline Phosphatase Lactate Dehydrogenase Troponin T C-Reactive Protein Total Protein Albumin Prealbumin Triglycerides Cholesterol LDL Cholesterol Direct HDL Cholesterol Urine pH Urine WBC (Auto) Urine Creatinine Urine Total Protein Fluid Total Protein Vancomycin Trough Rheumatoid Factor Complement C4 Miscellaneous Test Crossmatch 11/20/16 11/20/16 11/21/16 12:40 18:10 01:20 WBC RBC Hgb Hct MCV MCH MCHC RDW Plt Count Lymph % (Auto) [place] % (Auto) Lymph # [place] # Baso # Seg Neutrophils % Seg Neuts % (Manual) Lymphocytes % (Manual) Monocytes % (Manual) Eosinophils % (Manual) Basophils % (Manual) Nucleated RBC % Seg Neutrophils # Seg Neutrophils # Man Lymphocytes # (Manual) Monocytes # (Manual) Eosinophils # (Manual) PT INR Fibrinogen dRVVT Confirm Interp Factor V Activity POC ABG pH POC ABG pCO2 POC ABG pO2 ABG pO2 ABG HCO3 ABG Hemoglobin Oxyhemoglobin Sodium Potassium Chloride Carbon Dioxide BUN Creatinine Glucose POC Glucose 134 H 138 H 136 H Lactic Acid Calcium Phosphorus Magnesium Direct Bilirubin AST ALT Alkaline Phosphatase Lactate Dehydrogenase Troponin T C-Reactive Protein Total Protein Albumin Prealbumin Triglycerides Cholesterol LDL Cholesterol Direct HDL Cholesterol Urine pH Urine WBC (Auto) Urine Creatinine Urine Total Protein Fluid Total Protein Vancomycin Trough Rheumatoid Factor Complement C4 Miscellaneous Test Crossmatch 11/21/16 11/21/16 11/21/16 07:04 07:45 07:45 WBC 22.0 H RBC 2.91 L Hgb 8.2 L Hct 25.4 L MCV MCH MCHC RDW 17.1 H Plt Count Lymph % (Auto) [place] % (Auto) Lymph # [place] # Baso # Seg Neutrophils % Seg Neuts % (Manual) Lymphocytes % (Manual) 8.0 L Monocytes % (Manual) Eosinophils % (Manual) Basophils % (Manual) Nucleated RBC % Seg Neutrophils # Seg Neutrophils # Man 14.7 H Lymphocytes # (Manual) Monocytes # (Manual) 1.1 H Eosinophils # (Manual) PT INR Fibrinogen dRVVT Confirm Interp Factor V Activity POC ABG pH POC ABG pCO2 POC ABG pO2 ABG pO2 ABG HCO3 ABG Hemoglobin Oxyhemoglobin Sodium Potassium Chloride Carbon Dioxide BUN 42 H Creatinine 2.0 H Glucose POC Glucose 108 H Lactic Acid Calcium Phosphorus Magnesium Direct Bilirubin AST ALT Alkaline Phosphatase Lactate Dehydrogenase Troponin T C-Reactive Protein Total Protein Albumin Prealbumin Triglycerides Cholesterol LDL Cholesterol Direct HDL Cholesterol Urine pH Urine WBC (Auto) Urine Creatinine Urine Total Protein Fluid Total Protein Vancomycin Trough Rheumatoid Factor Complement C4 Miscellaneous Test Crossmatch 11/21/16 11/21/16 11/21/16 08:38 10:09 11:20 WBC RBC Hgb Hct MCV MCH MCHC RDW Plt Count Lymph % (Auto) [place] % (Auto) Lymph # [place] # Baso # Seg Neutrophils % Seg Neuts % (Manual) Lymphocytes % (Manual) Monocytes % (Manual) Eosinophils % (Manual) Basophils % (Manual) Nucleated RBC % Seg Neutrophils # Seg Neutrophils # Man Lymphocytes # (Manual) Monocytes # (Manual) Eosinophils # (Manual) PT INR Fibrinogen dRVVT Confirm Interp Factor V Activity POC ABG pH 7.346 L POC ABG pCO2 34.4 L POC ABG pO2 314 H ABG pO2 ABG HCO3 ABG Hemoglobin Oxyhemoglobin Sodium Potassium Chloride Carbon Dioxide BUN Creatinine Glucose POC Glucose 195 H 153 H Lactic Acid Calcium Phosphorus Magnesium Direct Bilirubin AST ALT Alkaline Phosphatase Lactate Dehydrogenase Troponin T C-Reactive Protein Total Protein Albumin Prealbumin Triglycerides Cholesterol LDL Cholesterol Direct HDL Cholesterol Urine pH Urine WBC (Auto) Urine Creatinine Urine Total Protein Fluid Total Protein Vancomycin Trough Rheumatoid Factor Complement C4 Miscellaneous Test Crossmatch 11/21/16 11/22/16 11/22/16 23:37 04:48 05:00 WBC 29.7 H RBC 2.73 L Hgb 7.5 L Hct 24.2 L MCV MCH 27 L MCHC RDW 17.4 H Plt Count Lymph % (Auto) [place] % (Auto) Lymph # [place] # Baso # Seg Neutrophils % Seg Neuts % (Manual) Lymphocytes % (Manual) 7.0 L Monocytes % (Manual) Eosinophils % (Manual) Basophils % (Manual) Nucleated RBC % Seg Neutrophils # Seg Neutrophils # Man 15.4 H Lymphocytes # (Manual) Monocytes # (Manual) Eosinophils # (Manual) PT INR Fibrinogen dRVVT Confirm Interp Factor V Activity POC ABG pH POC ABG pCO2 24.6 L POC ABG pO2 189 H ABG pO2 ABG HCO3 ABG Hemoglobin Oxyhemoglobin Sodium Potassium Chloride Carbon Dioxide BUN Creatinine Glucose POC Glucose 65 L Lactic Acid Calcium Phosphorus Magnesium Direct Bilirubin AST ALT Alkaline Phosphatase Lactate Dehydrogenase Troponin T C-Reactive Protein Total Protein Albumin Prealbumin Triglycerides Cholesterol LDL Cholesterol Direct HDL Cholesterol Urine pH Urine WBC (Auto) Urine Creatinine Urine Total Protein Fluid Total Protein Vancomycin Trough Rheumatoid Factor Complement C4 Miscellaneous Test Crossmatch 11/22/16 11/23/16 11/23/16 05:00 03:44 04:06 WBC RBC 2.52 L Hgb 7.2 L Hct 21.5 L MCV MCH MCHC RDW 17.1 H Plt Count Lymph % (Auto) [place] % (Auto) 12.4 H Lymph # [place] # 1.4 H Baso # Seg Neutrophils % Seg Neuts % (Manual) Lymphocytes % (Manual) Monocytes % (Manual) Eosinophils % (Manual) Basophils % (Manual) Nucleated RBC % Seg Neutrophils # Seg Neutrophils # Man Lymphocytes # (Manual) Monocytes # (Manual) Eosinophils # (Manual) PT INR Fibrinogen dRVVT Confirm Interp Factor V Activity POC ABG pH 7.493 H POC ABG pCO2 29.5 L POC ABG pO2 49 L ABG pO2 ABG HCO3 ABG Hemoglobin Oxyhemoglobin Sodium 134 L Potassium Chloride 95.9 L Carbon Dioxide 14 L D BUN 51 H Creatinine 2.6 H Glucose POC Glucose Lactic Acid Calcium Phosphorus Magnesium Direct Bilirubin AST ALT Alkaline Phosphatase Lactate Dehydrogenase Troponin T C-Reactive Protein Total Protein Albumin Prealbumin Triglycerides Cholesterol LDL Cholesterol Direct HDL Cholesterol Urine pH Urine WBC (Auto) Urine Creatinine Urine Total Protein Fluid Total Protein Vancomycin Trough Rheumatoid Factor Complement C4 Miscellaneous Test Crossmatch 11/23/16 11/23/16 11/24/16 04:06 11:29 06:39 WBC RBC Hgb Hct MCV MCH MCHC RDW Plt Count Lymph % (Auto) [place] % (Auto) Lymph # [place] # Baso # Seg Neutrophils % Seg Neuts % (Manual) Lymphocytes % (Manual) Monocytes % (Manual) Eosinophils % (Manual) Basophils % (Manual) Nucleated RBC % Seg Neutrophils # Seg Neutrophils # Man Lymphocytes # (Manual) Monocytes # (Manual) Eosinophils # (Manual) PT INR Fibrinogen dRVVT Confirm Interp Factor V Activity POC ABG pH POC ABG pCO2 POC ABG pO2 ABG pO2 ABG HCO3 ABG Hemoglobin Oxyhemoglobin Sodium 136 L Potassium Chloride 95.2 L Carbon Dioxide BUN 60 H Creatinine 2.9 H Glucose POC Glucose 69 L 305 H Lactic Acid Calcium Phosphorus Magnesium 1.60 L Direct Bilirubin AST ALT Alkaline Phosphatase Lactate Dehydrogenase Troponin T C-Reactive Protein Total Protein Albumin Prealbumin Triglycerides Cholesterol LDL Cholesterol Direct HDL Cholesterol Urine pH Urine WBC (Auto) Urine Creatinine Urine Total Protein Fluid Total Protein Vancomycin Trough Rheumatoid Factor Complement C4 Miscellaneous Test Crossmatch 11/24/16 11/24/16 11/24/16 06:43 08:08 08:08 WBC 11.2 H RBC 2.47 L Hgb 6.8 L Hct 20.6 L MCV MCH MCHC RDW 17.0 H Plt Count Lymph % (Auto) [place] % (Auto) 10.3 H Lymph # [place] # 1.2 H Baso # Seg Neutrophils % Seg Neuts % (Manual) Lymphocytes % (Manual) Monocytes % (Manual) Eosinophils % (Manual) Basophils % (Manual) Nucleated RBC % Seg Neutrophils # Seg Neutrophils # Man Lymphocytes # (Manual) Monocytes # (Manual) Eosinophils # (Manual) PT INR Fibrinogen dRVVT Confirm Interp Factor V Activity POC ABG pH POC ABG pCO2 POC ABG pO2 ABG pO2 ABG HCO3 ABG Hemoglobin Oxyhemoglobin Sodium 135 L Potassium Chloride 96.3 L Carbon Dioxide BUN 61 H Creatinine 3.1 H Glucose POC Glucose 62 L Lactic Acid Calcium 8.2 L Phosphorus Magnesium Direct Bilirubin AST ALT Alkaline Phosphatase Lactate Dehydrogenase Troponin T C-Reactive Protein Total Protein Albumin Prealbumin Triglycerides Cholesterol LDL Cholesterol Direct HDL Cholesterol Urine pH Urine WBC (Auto) Urine Creatinine Urine Total Protein Fluid Total Protein Vancomycin Trough Rheumatoid Factor Complement C4 Miscellaneous Test Crossmatch 11/24/16 11/24/16 11/24/16 08:34 11:20 12:41 WBC RBC Hgb Hct MCV MCH MCHC RDW Plt Count Lymph % (Auto) [place] % (Auto) Lymph # [place] # Baso # Seg Neutrophils % Seg Neuts % (Manual) Lymphocytes % (Manual) Monocytes % (Manual) Eosinophils % (Manual) Basophils % (Manual) Nucleated RBC % Seg Neutrophils # Seg Neutrophils # Man Lymphocytes # (Manual) Monocytes # (Manual) Eosinophils # (Manual) PT INR Fibrinogen dRVVT Confirm Interp Factor V Activity POC ABG pH POC ABG pCO2 POC ABG pO2 ABG pO2 ABG HCO3 ABG Hemoglobin Oxyhemoglobin Sodium Potassium Chloride Carbon Dioxide BUN Creatinine Glucose POC Glucose 108 H Lactic Acid Calcium Phosphorus Magnesium 1.60 L Direct Bilirubin AST ALT Alkaline Phosphatase Lactate Dehydrogenase Troponin T C-Reactive Protein Total Protein Albumin Prealbumin Triglycerides Cholesterol LDL Cholesterol Direct HDL Cholesterol Urine pH Urine WBC (Auto) Urine Creatinine Urine Total Protein Fluid Total Protein Vancomycin Trough Rheumatoid Factor Complement C4 Miscellaneous Test Crossmatch See Detail 11/25/16 11/25/16 11/25/16 00:03 04:42 04:42 WBC RBC 3.03 L Hgb 8.6 L Hct 25.3 L MCV MCH MCHC RDW 16.2 H Plt Count Lymph % (Auto) [place] % (Auto) 8.1 H Lymph # [place] # Baso # Seg Neutrophils % 71.3 H Seg Neuts % (Manual) Lymphocytes % (Manual) Monocytes % (Manual) Eosinophils % (Manual) Basophils % (Manual) Nucleated RBC % Seg Neutrophils # Seg Neutrophils # Man Lymphocytes # (Manual) Monocytes # (Manual) Eosinophils # (Manual) PT INR Fibrinogen dRVVT Confirm Interp Factor V Activity POC ABG pH POC ABG pCO2 POC ABG pO2 ABG pO2 ABG HCO3 ABG Hemoglobin Oxyhemoglobin Sodium Potassium Chloride Carbon Dioxide BUN 61 H Creatinine 3.0 H Glucose 102 H POC Glucose 113 H Lactic Acid Calcium 8.2 L Phosphorus Magnesium Direct Bilirubin AST ALT Alkaline Phosphatase 142 H Lactate Dehydrogenase Troponin T C-Reactive Protein Total Protein 5.7 L Albumin 1.5 L Prealbumin Triglycerides Cholesterol LDL Cholesterol Direct HDL Cholesterol Urine pH Urine WBC (Auto) Urine Creatinine Urine Total Protein Fluid Total Protein Vancomycin Trough Rheumatoid Factor Complement C4 Miscellaneous Test Crossmatch 11/25/16 11/25/16 11/25/16 05:12 11:31 14:12 WBC RBC Hgb Hct MCV MCH MCHC RDW Plt Count Lymph % (Auto) [place] % (Auto) Lymph # [place] # Baso # Seg Neutrophils % Seg Neuts % (Manual) Lymphocytes % (Manual) Monocytes % (Manual) Eosinophils % (Manual) Basophils % (Manual) Nucleated RBC % Seg Neutrophils # Seg Neutrophils # Man Lymphocytes # (Manual) Monocytes # (Manual) Eosinophils # (Manual) PT INR Fibrinogen dRVVT Confirm Interp Factor V Activity POC ABG pH 7.487 H POC ABG pCO2 POC ABG pO2 153 H ABG pO2 ABG HCO3 ABG Hemoglobin Oxyhemoglobin Sodium Potassium Chloride Carbon Dioxide BUN Creatinine Glucose POC Glucose 131 H 140 H Lactic Acid Calcium Phosphorus Magnesium Direct Bilirubin AST ALT Alkaline Phosphatase Lactate Dehydrogenase Troponin T C-Reactive Protein Total Protein Albumin Prealbumin Triglycerides Cholesterol LDL Cholesterol Direct HDL Cholesterol Urine pH Urine WBC (Auto) Urine Creatinine Urine Total Protein Fluid Total Protein Vancomycin Trough Rheumatoid Factor Complement C4 Miscellaneous Test Crossmatch 11/25/16 11/26/16 11/26/16 17:23 00:09 05:13 WBC RBC 2.94 L Hgb 8.4 L Hct 24.6 L MCV MCH MCHC RDW 16.4 H Plt Count Lymph % (Auto) [place] % (Auto) 12.3 H Lymph # [place] # 1.1 H Baso # Seg Neutrophils % Seg Neuts % (Manual) Lymphocytes % (Manual) Monocytes % (Manual) Eosinophils % (Manual) Basophils % (Manual) Nucleated RBC % Seg Neutrophils # Seg Neutrophils # Man Lymphocytes # (Manual) Monocytes # (Manual) Eosinophils # (Manual) PT INR Fibrinogen dRVVT Confirm Interp Factor V Activity POC ABG pH POC ABG pCO2 POC ABG pO2 ABG pO2 ABG HCO3 ABG Hemoglobin Oxyhemoglobin Sodium Potassium Chloride Carbon Dioxide BUN Creatinine Glucose POC Glucose 146 H 112 H Lactic Acid Calcium Phosphorus Magnesium Direct Bilirubin AST ALT Alkaline Phosphatase Lactate Dehydrogenase Troponin T C-Reactive Protein Total Protein Albumin Prealbumin Triglycerides Cholesterol LDL Cholesterol Direct HDL Cholesterol Urine pH Urine WBC (Auto) Urine Creatinine Urine Total Protein Fluid Total Protein Vancomycin Trough Rheumatoid Factor Complement C4 Miscellaneous Test Crossmatch 11/26/16 11/26/16 11/26/16 05:13 05:28 11:53 WBC RBC Hgb Hct MCV MCH MCHC RDW Plt Count Lymph % (Auto) [place] % (Auto) Lymph # [place] # Baso # Seg Neutrophils % Seg Neuts % (Manual) Lymphocytes % (Manual) Monocytes % (Manual) Eosinophils % (Manual) Basophils % (Manual) Nucleated RBC % Seg Neutrophils # Seg Neutrophils # Man Lymphocytes # (Manual) Monocytes # (Manual) Eosinophils # (Manual) PT INR Fibrinogen dRVVT Confirm Interp Factor V Activity POC ABG pH POC ABG pCO2 POC ABG pO2 ABG pO2 ABG HCO3 ABG Hemoglobin Oxyhemoglobin Sodium Potassium Chloride 97.8 L Carbon Dioxide BUN 37 H Creatinine 2.0 H Glucose 109 H POC Glucose 117 H 111 H Lactic Acid Calcium 7.9 L Phosphorus 1.80 L D Magnesium Direct Bilirubin AST ALT Alkaline Phosphatase Lactate Dehydrogenase Troponin T C-Reactive Protein Total Protein Albumin Prealbumin Triglycerides Cholesterol LDL Cholesterol Direct HDL Cholesterol Urine pH Urine WBC (Auto) Urine Creatinine Urine Total Protein Fluid Total Protein Vancomycin Trough Rheumatoid Factor Complement C4 Miscellaneous Test Crossmatch 11/26/16 11/27/16 11/27/16 17:14 04:50 06:02 WBC RBC Hgb Hct MCV MCH MCHC RDW Plt Count Lymph % (Auto) [place] % (Auto) Lymph # [place] # Baso # Seg Neutrophils % Seg Neuts % (Manual) Lymphocytes % (Manual) Monocytes % (Manual) Eosinophils % (Manual) Basophils % (Manual) Nucleated RBC % Seg Neutrophils # Seg Neutrophils # Man Lymphocytes # (Manual) Monocytes # (Manual) Eosinophils # (Manual) PT INR Fibrinogen dRVVT Confirm Interp Factor V Activity POC ABG pH POC ABG pCO2 POC ABG pO2 ABG pO2 75.2 L ABG HCO3 26.4 H ABG Hemoglobin 7.6 L Oxyhemoglobin 94.8 L Sodium Potassium Chloride Carbon Dioxide BUN 49 H Creatinine 2.3 H Glucose POC Glucose 115 H Lactic Acid Calcium Phosphorus 1.50 L Magnesium Direct Bilirubin AST ALT Alkaline Phosphatase Lactate Dehydrogenase Troponin T C-Reactive Protein Total Protein Albumin Prealbumin Triglycerides Cholesterol LDL Cholesterol Direct HDL Cholesterol Urine pH Urine WBC (Auto) Urine Creatinine Urine Total Protein Fluid Total Protein Vancomycin Trough Rheumatoid Factor Complement C4 Miscellaneous Test Crossmatch 11/27/16 11/27/16 11/27/16 06:02 11:25 17:25 WBC 11.6 H RBC 2.75 L Hgb 7.6 L Hct 23.4 L MCV MCH MCHC RDW 16.5 H Plt Count Lymph % (Auto) [place] % (Auto) Lymph # [place] # Baso # Seg Neutrophils % Seg Neuts % (Manual) Lymphocytes % (Manual) Monocytes % (Manual) Eosinophils % (Manual) Basophils % (Manual) Nucleated RBC % Seg Neutrophils # Seg Neutrophils # Man Lymphocytes # (Manual) Monocytes # (Manual) Eosinophils # (Manual) PT INR Fibrinogen dRVVT Confirm Interp Factor V Activity POC ABG pH POC ABG pCO2 POC ABG pO2 ABG pO2 ABG HCO3 ABG Hemoglobin Oxyhemoglobin Sodium Potassium Chloride Carbon Dioxide BUN Creatinine Glucose POC Glucose 114 H 126 H Lactic Acid Calcium Phosphorus Magnesium Direct Bilirubin AST ALT Alkaline Phosphatase Lactate Dehydrogenase Troponin T C-Reactive Protein Total Protein Albumin Prealbumin Triglycerides Cholesterol LDL Cholesterol Direct HDL Cholesterol Urine pH Urine WBC (Auto) Urine Creatinine Urine Total Protein Fluid Total Protein Vancomycin Trough Rheumatoid Factor Complement C4 Miscellaneous Test Crossmatch 11/28/16 11/28/16 11/28/16 04:45 05:33 05:44 WBC RBC Hgb Hct MCV MCH MCHC RDW Plt Count Lymph % (Auto) [place] % (Auto) Lymph # [place] # Baso # Seg Neutrophils % Seg Neuts % (Manual) Lymphocytes % (Manual) Monocytes % (Manual) Eosinophils % (Manual) Basophils % (Manual) Nucleated RBC % Seg Neutrophils # Seg Neutrophils # Man Lymphocytes # (Manual) Monocytes # (Manual) Eosinophils # (Manual) PT INR Fibrinogen dRVVT Confirm Interp Factor V Activity POC ABG pH POC ABG pCO2 POC ABG pO2 ABG pO2 99.3 H ABG HCO3 ABG Hemoglobin 8.3 L Oxyhemoglobin Sodium Potassium Chloride Carbon Dioxide BUN 63 H Creatinine 2.4 H Glucose 102 H POC Glucose 108 H Lactic Acid Calcium Phosphorus 1.80 L Magnesium Direct Bilirubin AST ALT Alkaline Phosphatase Lactate Dehydrogenase Troponin T C-Reactive Protein Total Protein Albumin Prealbumin Triglycerides Cholesterol LDL Cholesterol Direct HDL Cholesterol Urine pH Urine WBC (Auto) Urine Creatinine Urine Total Protein Fluid Total Protein Vancomycin Trough Rheumatoid Factor Complement C4 Miscellaneous Test Crossmatch 11/28/16 11/28/16 11/28/16 12:31 16:09 23:46 WBC RBC Hgb Hct MCV MCH MCHC RDW Plt Count Lymph % (Auto) [place] % (Auto) Lymph # [place] # Baso # Seg Neutrophils % Seg Neuts % (Manual) Lymphocytes % (Manual) Monocytes % (Manual) Eosinophils % (Manual) Basophils % (Manual) Nucleated RBC % Seg Neutrophils # Seg Neutrophils # Man Lymphocytes # (Manual) Monocytes # (Manual) Eosinophils # (Manual) PT INR Fibrinogen dRVVT Confirm Interp Factor V Activity POC ABG pH POC ABG pCO2 POC ABG pO2 ABG pO2 ABG HCO3 ABG Hemoglobin Oxyhemoglobin Sodium Potassium Chloride Carbon Dioxide BUN Creatinine Glucose POC Glucose 126 H 111 H 119 H Lactic Acid Calcium Phosphorus Magnesium Direct Bilirubin AST ALT Alkaline Phosphatase Lactate Dehydrogenase Troponin T C-Reactive Protein Total Protein Albumin Prealbumin Triglycerides Cholesterol LDL Cholesterol Direct HDL Cholesterol Urine pH Urine WBC (Auto) Urine Creatinine Urine Total Protein Fluid Total Protein Vancomycin Trough Rheumatoid Factor Complement C4 Miscellaneous Test Crossmatch 11/29/16 11/29/16 11/29/16 03:33 04:52 05:10 WBC RBC Hgb Hct MCV MCH MCHC RDW Plt Count Lymph % (Auto) [place] % (Auto) Lymph # [place] # Baso # Seg Neutrophils % Seg Neuts % (Manual) Lymphocytes % (Manual) Monocytes % (Manual) Eosinophils % (Manual) Basophils % (Manual) Nucleated RBC % Seg Neutrophils # Seg Neutrophils # Man Lymphocytes # (Manual) Monocytes # (Manual) Eosinophils # (Manual) PT INR Fibrinogen dRVVT Confirm Interp Factor V Activity POC ABG pH POC ABG pCO2 POC ABG pO2 ABG pO2 ABG HCO3 ABG Hemoglobin 7.0 L Oxyhemoglobin 94.9 L Sodium Potassium Chloride Carbon Dioxide BUN 73 H Creatinine 2.7 H Glucose POC Glucose 108 H Lactic Acid Calcium Phosphorus Magnesium Direct Bilirubin AST ALT Alkaline Phosphatase Lactate Dehydrogenase Troponin T C-Reactive Protein Total Protein Albumin Prealbumin Triglycerides Cholesterol LDL Cholesterol Direct HDL Cholesterol Urine pH Urine WBC (Auto) Urine Creatinine Urine Total Protein Fluid Total Protein Vancomycin Trough Rheumatoid Factor Complement C4 Miscellaneous Test Crossmatch 11/29/16 11/29/16 11/29/16 12:16 18:05 23:46 WBC RBC Hgb Hct MCV MCH MCHC RDW Plt Count Lymph % (Auto) [place] % (Auto) Lymph # [place] # Baso # Seg Neutrophils % Seg Neuts % (Manual) Lymphocytes % (Manual) Monocytes % (Manual) Eosinophils % (Manual) Basophils % (Manual) Nucleated RBC % Seg Neutrophils # Seg Neutrophils # Man Lymphocytes # (Manual) Monocytes # (Manual) Eosinophils # (Manual) PT INR Fibrinogen dRVVT Confirm Interp Factor V Activity POC ABG pH POC ABG pCO2 POC ABG pO2 ABG pO2 ABG HCO3 ABG Hemoglobin Oxyhemoglobin Sodium Potassium Chloride Carbon Dioxide BUN Creatinine Glucose POC Glucose 133 H 146 H 141 H Lactic Acid Calcium Phosphorus Magnesium Direct Bilirubin AST ALT Alkaline Phosphatase Lactate Dehydrogenase Troponin T C-Reactive Protein Total Protein Albumin Prealbumin Triglycerides Cholesterol LDL Cholesterol Direct HDL Cholesterol Urine pH Urine WBC (Auto) Urine Creatinine Urine Total Protein Fluid Total Protein Vancomycin Trough Rheumatoid Factor Complement C4 Miscellaneous Test Crossmatch 11/30/16 11/30/16 11/30/16 04:17 04:17 04:32 WBC 12.0 H RBC 2.80 L Hgb 7.8 L Hct 23.6 L MCV MCH MCHC RDW 16.6 H Plt Count Lymph % (Auto) [place] % (Auto) 11.3 H Lymph # [place] # 1.4 H Baso # Seg Neutrophils % Seg Neuts % (Manual) Lymphocytes % (Manual) Monocytes % (Manual) Eosinophils % (Manual) Basophils % (Manual) Nucleated RBC % Seg Neutrophils # 8.2 H Seg Neutrophils # Man Lymphocytes # (Manual) Monocytes # (Manual) Eosinophils # (Manual) PT INR Fibrinogen dRVVT Confirm Interp Factor V Activity POC ABG pH POC ABG pCO2 POC ABG pO2 ABG pO2 ABG HCO3 ABG Hemoglobin Oxyhemoglobin Sodium 169 H* D Potassium 5.1 H Chloride 121.5 H Carbon Dioxide BUN 34 H Creatinine 1.3 H D Glucose 133 H POC Glucose 131 H Lactic Acid Calcium 10.3 H Phosphorus Magnesium Direct Bilirubin AST ALT Alkaline Phosphatase Lactate Dehydrogenase Troponin T C-Reactive Protein Total Protein Albumin Prealbumin Triglycerides Cholesterol LDL Cholesterol Direct HDL Cholesterol Urine pH Urine WBC (Auto) Urine Creatinine Urine Total Protein Fluid Total Protein Vancomycin Trough Rheumatoid Factor Complement C4 Miscellaneous Test Crossmatch 11/30/16 11/30/16 11/30/16 05:45 11:10 17:26 WBC RBC Hgb Hct MCV MCH MCHC RDW Plt Count Lymph % (Auto) [place] % (Auto) Lymph # [place] # Baso # Seg Neutrophils % Seg Neuts % (Manual) Lymphocytes % (Manual) Monocytes % (Manual) Eosinophils % (Manual) Basophils % (Manual) Nucleated RBC % Seg Neutrophils # Seg Neutrophils # Man Lymphocytes # (Manual) Monocytes # (Manual) Eosinophils # (Manual) PT INR Fibrinogen dRVVT Confirm Interp Factor V Activity POC ABG pH POC ABG pCO2 POC ABG pO2 ABG pO2 ABG HCO3 ABG Hemoglobin Oxyhemoglobin Sodium Potassium Chloride Carbon Dioxide BUN 45 H Creatinine 1.6 H Glucose 131 H POC Glucose 146 H 134 H Lactic Acid Calcium Phosphorus Magnesium Direct Bilirubin AST ALT Alkaline Phosphatase Lactate Dehydrogenase Troponin T C-Reactive Protein Total Protein Albumin Prealbumin Triglycerides Cholesterol LDL Cholesterol Direct HDL Cholesterol Urine pH Urine WBC (Auto) Urine Creatinine Urine Total Protein Fluid Total Protein Vancomycin Trough Rheumatoid Factor Complement C4 Miscellaneous Test Crossmatch 11/30/16 12/01/16 12/01/16 23:35 00:06 03:35 WBC RBC Hgb Hct MCV MCH MCHC RDW Plt Count Lymph % (Auto) [place] % (Auto) Lymph # [place] # Baso # Seg Neutrophils % Seg Neuts % (Manual) Lymphocytes % (Manual) Monocytes % (Manual) Eosinophils % (Manual) Basophils % (Manual) Nucleated RBC % Seg Neutrophils # Seg Neutrophils # Man Lymphocytes # (Manual) Monocytes # (Manual) Eosinophils # (Manual) PT INR Fibrinogen dRVVT Confirm Interp Factor V Activity POC ABG pH POC ABG pCO2 POC ABG pO2 ABG pO2 ABG HCO3 ABG Hemoglobin 6.9 L Oxyhemoglobin Sodium Potassium Chloride Carbon Dioxide BUN 58 H Creatinine 1.8 H Glucose 146 H POC Glucose 151 H Lactic Acid Calcium Phosphorus Magnesium Direct Bilirubin AST ALT Alkaline Phosphatase Lactate Dehydrogenase Troponin T C-Reactive Protein Total Protein Albumin Prealbumin Triglycerides Cholesterol LDL Cholesterol Direct HDL Cholesterol Urine pH Urine WBC (Auto) Urine Creatinine Urine Total Protein Fluid Total Protein Vancomycin Trough Rheumatoid Factor Complement C4 Miscellaneous Test Crossmatch 12/01/16 12/01/16 12/01/16 03:35 05:47 11:52 WBC 12.3 H RBC 2.82 L Hgb 7.8 L Hct 23.7 L MCV MCH MCHC RDW 16.7 H Plt Count Lymph % (Auto) [place] % (Auto) 9.8 H Lymph # [place] # 1.2 H Baso # Seg Neutrophils % Seg Neuts % (Manual) Lymphocytes % (Manual) Monocytes % (Manual) Eosinophils % (Manual) Basophils % (Manual) Nucleated RBC % Seg Neutrophils # 8.4 H Seg Neutrophils # Man Lymphocytes # (Manual) Monocytes # (Manual) Eosinophils # (Manual) PT INR Fibrinogen dRVVT Confirm Interp Factor V Activity POC ABG pH POC ABG pCO2 POC ABG pO2 ABG pO2 ABG HCO3 ABG Hemoglobin Oxyhemoglobin Sodium Potassium Chloride Carbon Dioxide BUN Creatinine Glucose POC Glucose 152 H 152 H Lactic Acid Calcium Phosphorus Magnesium Direct Bilirubin AST ALT Alkaline Phosphatase Lactate Dehydrogenase Troponin T C-Reactive Protein Total Protein Albumin Prealbumin Triglycerides Cholesterol LDL Cholesterol Direct HDL Cholesterol Urine pH Urine WBC (Auto) Urine Creatinine Urine Total Protein Fluid Total Protein Vancomycin Trough Rheumatoid Factor Complement C4 Miscellaneous Test Crossmatch 12/01/16 12/01/16 12/02/16 17:40 23:41 05:00 WBC RBC Hgb Hct MCV MCH MCHC RDW Plt Count Lymph % (Auto) [place] % (Auto) Lymph # [place] # Baso # Seg Neutrophils % Seg Neuts % (Manual) Lymphocytes % (Manual) Monocytes % (Manual) Eosinophils % (Manual) Basophils % (Manual) Nucleated RBC % Seg Neutrophils # Seg Neutrophils # Man Lymphocytes # (Manual) Monocytes # (Manual) Eosinophils # (Manual) PT INR Fibrinogen dRVVT Confirm Interp Factor V Activity POC ABG pH POC ABG pCO2 POC ABG pO2 ABG pO2 ABG HCO3 ABG Hemoglobin Oxyhemoglobin Sodium Potassium Chloride Carbon Dioxide BUN 45 H Creatinine Glucose 115 H POC Glucose 140 H 144 H Lactic Acid Calcium Phosphorus Magnesium Direct Bilirubin AST ALT Alkaline Phosphatase Lactate Dehydrogenase Troponin T C-Reactive Protein Total Protein Albumin Prealbumin Triglycerides Cholesterol LDL Cholesterol Direct HDL Cholesterol Urine pH Urine WBC (Auto) Urine Creatinine Urine Total Protein Fluid Total Protein Vancomycin Trough Rheumatoid Factor Complement C4 Miscellaneous Test Crossmatch 12/02/16 12/02/16 12/02/16 05:31 11:20 17:38 WBC RBC Hgb Hct MCV MCH MCHC RDW Plt Count Lymph % (Auto) [place] % (Auto) Lymph # [place] # Baso # Seg Neutrophils % Seg Neuts % (Manual) Lymphocytes % (Manual) Monocytes % (Manual) Eosinophils % (Manual) Basophils % (Manual) Nucleated RBC % Seg Neutrophils # Seg Neutrophils # Man Lymphocytes # (Manual) Monocytes # (Manual) Eosinophils # (Manual) PT INR Fibrinogen dRVVT Confirm Interp Factor V Activity POC ABG pH POC ABG pCO2 POC ABG pO2 ABG pO2 ABG HCO3 ABG Hemoglobin Oxyhemoglobin Sodium Potassium Chloride Carbon Dioxide BUN Creatinine Glucose POC Glucose 136 H 177 H 139 H Lactic Acid Calcium Phosphorus Magnesium Direct Bilirubin AST ALT Alkaline Phosphatase Lactate Dehydrogenase Troponin T C-Reactive Protein Total Protein Albumin Prealbumin Triglycerides Cholesterol LDL Cholesterol Direct HDL Cholesterol Urine pH Urine WBC (Auto) Urine Creatinine Urine Total Protein Fluid Total Protein Vancomycin Trough Rheumatoid Factor Complement C4 Miscellaneous Test Crossmatch 12/02/16 12/03/16 12/03/16 23:43 04:00 04:00 WBC 20.4 H RBC 2.74 L Hgb 7.4 L Hct 23.6 L MCV MCH 27 L MCHC RDW 17.1 H Plt Count Lymph % (Auto) [place] % (Auto) Lymph # [place] # Baso # Seg Neutrophils % Seg Neuts % (Manual) 31.0 L Lymphocytes % (Manual) Monocytes % (Manual) Eosinophils % (Manual) Basophils % (Manual) Nucleated RBC % Seg Neutrophils # Seg Neutrophils # Man Lymphocytes # (Manual) Monocytes # (Manual) Eosinophils # (Manual) PT INR Fibrinogen dRVVT Confirm Interp Factor V Activity POC ABG pH POC ABG pCO2 POC ABG pO2 ABG pO2 ABG HCO3 ABG Hemoglobin Oxyhemoglobin Sodium Potassium Chloride Carbon Dioxide BUN 61 H Creatinine 1.6 H Glucose 119 H POC Glucose 158 H Lactic Acid Calcium Phosphorus Magnesium Direct Bilirubin AST ALT Alkaline Phosphatase Lactate Dehydrogenase Troponin T C-Reactive Protein Total Protein Albumin Prealbumin Triglycerides Cholesterol LDL Cholesterol Direct HDL Cholesterol Urine pH Urine WBC (Auto) Urine Creatinine Urine Total Protein Fluid Total Protein Vancomycin Trough Rheumatoid Factor Complement C4 Miscellaneous Test Crossmatch 12/03/16 12/03/16 12/03/16 05:02 12:11 18:16 WBC RBC Hgb Hct MCV MCH MCHC RDW Plt Count Lymph % (Auto) [place] % (Auto) Lymph # [place] # Baso # Seg Neutrophils % Seg Neuts % (Manual) Lymphocytes % (Manual) Monocytes % (Manual) Eosinophils % (Manual) Basophils % (Manual) Nucleated RBC % Seg Neutrophils # Seg Neutrophils # Man Lymphocytes # (Manual) Monocytes # (Manual) Eosinophils # (Manual) PT INR Fibrinogen dRVVT Confirm Interp Factor V Activity POC ABG pH POC ABG pCO2 POC ABG pO2 ABG pO2 ABG HCO3 ABG Hemoglobin Oxyhemoglobin Sodium Potassium Chloride Carbon Dioxide BUN Creatinine Glucose POC Glucose 146 H 157 H 124 H Lactic Acid Calcium Phosphorus Magnesium Direct Bilirubin AST ALT Alkaline Phosphatase Lactate Dehydrogenase Troponin T C-Reactive Protein Total Protein Albumin Prealbumin Triglycerides Cholesterol LDL Cholesterol Direct HDL Cholesterol Urine pH Urine WBC (Auto) Urine Creatinine Urine Total Protein Fluid Total Protein Vancomycin Trough Rheumatoid Factor Complement C4 Miscellaneous Test Crossmatch 12/03/16 12/04/16 12/04/16 23:41 04:00 04:45 WBC RBC Hgb Hct MCV MCH MCHC RDW Plt Count Lymph % (Auto) [place] % (Auto) Lymph # [place] # Baso # Seg Neutrophils % Seg Neuts % (Manual) Lymphocytes % (Manual) Monocytes % (Manual) Eosinophils % (Manual) Basophils % (Manual) Nucleated RBC % Seg Neutrophils # Seg Neutrophils # Man Lymphocytes # (Manual) Monocytes # (Manual) Eosinophils # (Manual) PT INR Fibrinogen dRVVT Confirm Interp Factor V Activity POC ABG pH POC ABG pCO2 POC ABG pO2 ABG pO2 ABG HCO3 ABG Hemoglobin Oxyhemoglobin Sodium Potassium Chloride Carbon Dioxide BUN 76 H Creatinine 1.6 H Glucose POC Glucose 130 H 136 H Lactic Acid Calcium Phosphorus Magnesium Direct Bilirubin AST ALT Alkaline Phosphatase 155 H Lactate Dehydrogenase Troponin T C-Reactive Protein Total Protein 5.5 L Albumin 1.5 L Prealbumin Triglycerides Cholesterol LDL Cholesterol Direct HDL Cholesterol Urine pH Urine WBC (Auto) Urine Creatinine Urine Total Protein Fluid Total Protein Vancomycin Trough Rheumatoid Factor Complement C4 Miscellaneous Test Crossmatch Allied health notes reviewed: RT
[2016-12-04] MEDS ORDERED: TPN ADULT IV SCH (20:00)
[2016-12-05] MEDS: DUONEB *Not for PRN Use IH SCH ×4 (01:59→19:05)
[2016-12-05] MEDS: HumuLIN R SUB-Q SCH ×4 (02:47→18:37)
[2016-12-05] MEDS: LOPRESSOR PO SCH ×5 (02:47→23:49)
[2016-12-05 06:05] LABS: ABG Base Excess -3.4 mmol/L (-2.0-3.0); ABG HCO3 20.1 mmol/L (20.0-26.0); ABG Methemoglobin 0.6 % (0.0-1.5); ABG Oxygen Saturation 96.8 % (95.0-99.0); ABG PCO2 29.6 mm Hg; ABG PH 7.45 pH Units (7.350-7.450); ABG PO2 75.2 mm Hg (80.0-90.0)
[2016-12-05 06:18] LABS: Calcium 9.3 mg/dL (8.4-10.2)
[2016-12-05] MEDS: LASIX IV SCH ×2 (06:37→18:12)
[2016-12-05] MEDS: APRESOLINE PO SCH ×3 (06:37→21:00)
--- NOTE | 2016-12-05 07:25 | XRay Report ---
AP CHEST: HISTORY: Acute respiratory failure The tracheostomy, feeding tube and left venous catheter remain in adequate position. There is decreased hazy opacity at the lung bases since 11/30/15 consistent with improvement in atelectatic changes or pleural effusions. The upper lung zones are clear. Heart size is stable at the upper limits of normal. IMPRESSION: Improvement in bibasilar atelectasis or pleural effusions. No new acute process.
--- NOTE | 2016-12-05 09:47 | Progress Note ---
Subjective Principal diagnosis: Acute resp failure on MVS; S/P Acute CVA; Acute Encephalopathy; JUANITA Interval history: Patient was seen today for follow-up on multiple renal related issues,events of this admission. She is currently on TPN she remains dialysis dependent Events of [place] 24 hours were reviewed Vitals labs intake and output medications were reviewed from today Allergies: Reviewed Social history: Reviewed Family history: Reviewed Physical examination HEENT: Oral mucosa moist no pharyngeal erythema Neck: Supple no JVD Chest: Clear to auscultation no crackles rales or wheezes Heart: Regular rate and rhythm S1-S2 heard no S3-S4 Abdomen: Soft nontender no renal bruit no CVA tenderness no suprapubic fullness Extremity: Mild edema dry skin no peripheral cyanosis pulses palpable Musculoskeletal: No joint effusion noted Assessment and plan Acute and chronic renal failure with no signs symptoms of recovery; patient is currently dialysis dependent 3 times a week for solute and volume clearance patient may be progressing to end-stage renal disease She will continue to dialyze Monday and Monday schedule if needed additional treatment can be given Accelerated, uncontrolled hypertension patient who does have renovascular disease currently blood pressure is much better controlled Anemia and renal failure patient has had CVA and hence would like to avoid erythropoietin in the setting please longer packed red blood cell transfusion if hemoglobin is under 7 Nutrition: Patient is currently on TPN, patient has had pus draining from the PEG tube site and hence it was removed History of acute CVA MCA territory Persistent vegetative state; prognosis appears to be very poor Respiratory failure currently; status post tracheotomy Difficult to control hypertension to monitor and follow History of bacteremia infections currently followed by infectious disease Fever: Currently resolved Objective - Vital Signs Vital signs: Vital Signs - 12hr 12/04/16 12/04/16 12/04/16 21:49 21:50 22:00 Temperature Pulse Rate 117 H 120 H Pulse Rate [ 116 H Bilateral Throughout] Pulse Rate [ From Monitor] Respiratory Rate Respiratory 16 Rate [Bilateral Throughout] Blood Pressure 151/86 O2 Sat by Pulse Oximetry O2 Sat by Pulse Oximetry [ Assessment] 12/04/16 12/04/16 12/04/16 22:01 22:30 23:00 Temperature Pulse Rate 124 H 119 H 120 H Pulse Rate [ Bilateral Throughout] Pulse Rate [ From Monitor] Respiratory 19 13 21 Rate Respiratory Rate [Bilateral Throughout] Blood Pressure 152/89 167/95 165/96 O2 Sat by Pulse 100 100 100 Oximetry O2 Sat by Pulse Oximetry [ Assessment] 12/04/16 12/04/16 12/05/16 23:30 23:31 00:00 Temperature 100.1 F H Pulse Rate 119 H 123 H Pulse Rate [ Bilateral Throughout] Pulse Rate [ 118 H From Monitor] Respiratory 23 18 Rate Respiratory Rate [Bilateral Throughout] Blood Pressure 151/94 150/96 O2 Sat by Pulse 95 100 Oximetry O2 Sat by Pulse Oximetry [ Assessment] 12/05/16 12/05/16 12/05/16 00:13 00:20 00:30 Temperature Pulse Rate 125 H 121 H Pulse Rate [ Bilateral Throughout] Pulse Rate [ From Monitor] Respiratory 21 Rate Respiratory Rate [Bilateral Throughout] Blood Pressure 129/96 142/97 O2 Sat by Pulse 100 99 Oximetry O2 Sat by Pulse 100 Oximetry [ Assessment] 12/05/16 12/05/16 12/05/16 01:00 01:30 01:50 Temperature Pulse Rate 119 H 118 H Pulse Rate [ 115 H Bilateral Throughout] Pulse Rate [ From Monitor] Respiratory 22 20 Rate Respiratory 13 Rate [Bilateral Throughout] Blood Pressure 140/98 158/96 O2 Sat by Pulse 98 100 Oximetry O2 Sat by Pulse Oximetry [ Assessment] 12/05/16 12/05/16 12/05/16 01:59 02:00 02:30 Temperature Pulse Rate 119 H 117 H Pulse Rate [ 113 H Bilateral Throughout] Pulse Rate [ From Monitor] Respiratory 22 17 Rate Respiratory 14 Rate [Bilateral Throughout] Blood Pressure 152/97 152/86 O2 Sat by Pulse 100 100 Oximetry O2 Sat by Pulse Oximetry [ Assessment] 12/05/16 12/05/16 12/05/16 02:47 03:00 03:29 Temperature 99.8 F H Pulse Rate 122 H 110 H 107 H Pulse Rate [ Bilateral Throughout] Pulse Rate [ From Monitor] Respiratory 20 Rate Respiratory Rate [Bilateral Throughout] Blood Pressure 157/96 145/86 125/75 O2 Sat by Pulse 97 96 Oximetry O2 Sat by Pulse Oximetry [ Assessment] 12/05/16 12/05/16 12/05/16 03:30 04:00 04:01 Temperature Pulse Rate 106 H 106 H Pulse Rate [ Bilateral Throughout] Pulse Rate [ 112 H From Monitor] Respiratory 20 24 28 H Rate Respiratory Rate [Bilateral Throughout] Blood Pressure 125/75 147/78 O2 Sat by Pulse 96 100 98 Oximetry O2 Sat by Pulse Oximetry [ Assessment] 12/05/16 12/05/16 12/05/16 04:30 05:01 05:31 Temperature Pulse Rate 112 H 117 H 112 H Pulse Rate [ Bilateral Throughout] Pulse Rate [ From Monitor] Respiratory 24 13 23 Rate Respiratory Rate [Bilateral Throughout] Blood Pressure 145/81 159/85 153/80 O2 Sat by Pulse 99 99 99 Oximetry O2 Sat by Pulse Oximetry [ Assessment] 12/05/16 12/05/16 12/05/16 06:00 06:30 06:37 Temperature Pulse Rate 114 H 115 H 114 H Pulse Rate [ Bilateral Throughout] Pulse Rate [ From Monitor] Respiratory 24 19 Rate Respiratory Rate [Bilateral Throughout] Blood Pressure 147/83 148/77 148/77 O2 Sat by Pulse 98 97 Oximetry O2 Sat by Pulse Oximetry [ Assessment] 12/05/16 12/05/16 12/05/16 06:38 07:01 07:30 Temperature Pulse Rate 113 H 103 H 100 H Pulse Rate [ Bilateral Throughout] Pulse Rate [ From Monitor] Respiratory 16 16 Rate Respiratory Rate [Bilateral Throughout] Blood Pressure 148/77 133/70 128/63 O2 Sat by Pulse 100 100 Oximetry O2 Sat by Pulse Oximetry [ Assessment] 12/05/16 12/05/16 12/05/16 07:57 08:00 08:30 Temperature 98.9 F Pulse Rate 102 H 101 H Pulse Rate [ Bilateral Throughout] Pulse Rate [ From Monitor] Respiratory 20 20 Rate Respiratory Rate [Bilateral Throughout] Blood Pressure 134/71 130/74 O2 Sat by Pulse 100 100 100 Oximetry O2 Sat by Pulse Oximetry [ Assessment] 12/05/16 12/05/16 12/05/16 08:43 08:45 09:00 Temperature Pulse Rate 101 H 105 H Pulse Rate [ 101 H Bilateral Throughout] Pulse Rate [ From Monitor] Respiratory 17 Rate Respiratory 21 Rate [Bilateral Throughout] Blood Pressure 130/74 133/80 O2 Sat by Pulse 99 100 Oximetry O2 Sat by Pulse Oximetry [ Assessment] 12/05/16 09:02 Temperature Pulse Rate Pulse Rate [ 103 H Bilateral Throughout] Pulse Rate [ From Monitor] Respiratory Rate Respiratory 18 Rate [Bilateral Throughout] Blood Pressure O2 Sat by Pulse Oximetry O2 Sat by Pulse Oximetry [ Assessment] - Lab 12/03/16 04:00 12/05/16 05:00 Most recent lab results ABG pH 7.450 pH Units (7.350-7.450) 12/05/16 Unknown ABG pCO2 29.6 mm Hg 12/05/16 Unknown ABG pO2 75.2 mm Hg (80.0-90.0) L 12/05/16 Unknown ABG HCO3 20.1 mmol/L (20.0-26.0) 12/05/16 Unknown ABG O2 Saturation 96.8 % (95.0-99.0) 12/05/16 Unknown Calcium 9.3 mg/dL (8.4-10.2) 12/05/16 05:00 Phosphorus 4.50 mg/dL (2.5-4.5) 12/05/16 05:00 Magnesium 1.80 mg/dL (1.7-2.3) 12/05/16 05:00 Urine Creatinine 19.7 mg/dL (0.1-20.0) 11/12/16 10:18 Urine Sodium 36 mEq/L 09/16/16 19:19 Urine Total Protein 16 mg/dL (5-11.8) H 09/16/16 19:19
--- NOTE | 2016-12-05 09:55 | Progress Note ---
Assessment and Plan Acute Hypoxemic Respiratory Failure (now with exacerbation and back on MVS) Hypertension (unable to receive p.o. 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 and get back to us this week ) - keep on with daily PSV trials and / or T-piece as tolerated - will repeat PSV trial later today - prn analgesia for pain control - Placed PICC line for TPN administration (continue TPN; NPO except for meds) - continue scopolamine for secretion control - continue to wean FiO2 for sats > 94% - continue bronchodilators and pulmonary toilet - VAP bundle addressed - continue prn IV metorolol - continue AB's (Vancomycin) till stop date per ID recs - continue metoprolol and amlodipine (rate control better) - continue HD/UF per nephrology (for HD/UF session yesterday) - continue to follow electrolytes and correct as necessary - continue GI & VTE prophylaxis - Continue flu & pneumovax per protocol ... she remains critically ill on life sustaining interventions including MVS and at risk for further deterioration including ....32' CCT today without overlap Subjective Date of service: 12/05/16 Principal diagnosis: Acute resp failure on MVS; S/P Acute CVA; Acute Encephalopathy; JUANITA Interval history: Patient is seen today for: Acute resp failure on MVS; S/P Acute CVA; Acute Encephalopathy; JUANITA Seen and examined at bedside; 24hour events reviewed; nursing and respiratory care staff consulted; no adverse overnight events reported to me; again not tolerating PSV or t-piece weaning today; breathing remains labored; tracheostomy secretions minimal; AMS is persistent; still with stomal drainage into colostomy bags; no emesis or overt aspiration reported;no seizures Objective Vital Signs - 12hr 12/04/16 12/04/16 12/04/16 22:00 22:01 22:30 Temperature Pulse Rate 120 H 124 H 119 H Pulse Rate [ Bilateral Throughout] Pulse Rate [ From Monitor] Respiratory 19 13 Rate Respiratory Rate [Bilateral Throughout] Blood Pressure 152/89 167/95 O2 Sat by Pulse 100 100 Oximetry O2 Sat by Pulse Oximetry [ Assessment] 12/04/16 12/04/16 12/04/16 23:00 23:30 23:31 Temperature 100.1 F H Pulse Rate 120 H 119 H Pulse Rate [ Bilateral Throughout] Pulse Rate [ From Monitor] Respiratory 21 23 Rate Respiratory Rate [Bilateral Throughout] Blood Pressure 165/96 151/94 O2 Sat by Pulse 100 95 Oximetry O2 Sat by Pulse Oximetry [ Assessment] 12/05/16 12/05/16 12/05/16 00:00 00:13 00:20 Temperature Pulse Rate 123 H 125 H Pulse Rate [ Bilateral Throughout] Pulse Rate [ 118 H From Monitor] Respiratory 18 Rate Respiratory Rate [Bilateral Throughout] Blood Pressure 150/96 129/96 O2 Sat by Pulse 100 100 Oximetry O2 Sat by Pulse 100 Oximetry [ Assessment] 12/05/16 12/05/16 12/05/16 00:30 01:00 01:30 Temperature Pulse Rate 121 H 119 H 118 H Pulse Rate [ Bilateral Throughout] Pulse Rate [ From Monitor] Respiratory 21 22 20 Rate Respiratory Rate [Bilateral Throughout] Blood Pressure 142/97 140/98 158/96 O2 Sat by Pulse 99 98 100 Oximetry O2 Sat by Pulse Oximetry [ Assessment] 12/05/16 12/05/16 12/05/16 01:50 01:59 02:00 Temperature Pulse Rate 119 H Pulse Rate [ 115 H 113 H Bilateral Throughout] Pulse Rate [ From Monitor] Respiratory 22 Rate Respiratory 13 14 Rate [Bilateral Throughout] Blood Pressure 152/97 O2 Sat by Pulse 100 Oximetry O2 Sat by Pulse Oximetry [ Assessment] 12/05/16 12/05/16 12/05/16 02:30 02:47 03:00 Temperature 99.8 F H Pulse Rate 117 H 122 H 110 H Pulse Rate [ Bilateral Throughout] Pulse Rate [ From Monitor] Respiratory 17 20 Rate Respiratory Rate [Bilateral Throughout] Blood Pressure 152/86 157/96 145/86 O2 Sat by Pulse 100 97 Oximetry O2 Sat by Pulse Oximetry [ Assessment] 12/05/16 12/05/16 12/05/16 03:29 03:30 04:00 Temperature Pulse Rate 107 H 106 H Pulse Rate [ Bilateral Throughout] Pulse Rate [ 112 H From Monitor] Respiratory 20 24 Rate Respiratory Rate [Bilateral Throughout] Blood Pressure 125/75 125/75 O2 Sat by Pulse 96 96 100 Oximetry O2 Sat by Pulse Oximetry [ Assessment] 12/05/16 12/05/16 12/05/16 04:01 04:30 05:01 Temperature Pulse Rate 106 H 112 H 117 H Pulse Rate [ Bilateral Throughout] Pulse Rate [ From Monitor] Respiratory 28 H 24 13 Rate Respiratory Rate [Bilateral Throughout] Blood Pressure 147/78 145/81 159/85 O2 Sat by Pulse 98 99 99 Oximetry O2 Sat by Pulse Oximetry [ Assessment] 12/05/16 12/05/16 12/05/16 05:31 06:00 06:30 Temperature Pulse Rate 112 H 114 H 115 H Pulse Rate [ Bilateral Throughout] Pulse Rate [ From Monitor] Respiratory 23 24 19 Rate Respiratory Rate [Bilateral Throughout] Blood Pressure 153/80 147/83 148/77 O2 Sat by Pulse 99 98 97 Oximetry O2 Sat by Pulse Oximetry [ Assessment] 12/05/16 12/05/16 12/05/16 06:37 06:38 07:01 Temperature Pulse Rate 114 H 113 H 103 H Pulse Rate [ Bilateral Throughout] Pulse Rate [ From Monitor] Respiratory 16 Rate Respiratory Rate [Bilateral Throughout] Blood Pressure 148/77 148/77 133/70 O2 Sat by Pulse 100 Oximetry O2 Sat by Pulse Oximetry [ Assessment] 12/05/16 12/05/16 12/05/16 07:30 07:57 08:00 Temperature 98.9 F Pulse Rate 100 H 102 H Pulse Rate [ Bilateral Throughout] Pulse Rate [ From Monitor] Respiratory 16 20 Rate Respiratory Rate [Bilateral Throughout] Blood Pressure 128/63 134/71 O2 Sat by Pulse 100 100 100 Oximetry O2 Sat by Pulse Oximetry [ Assessment] 12/05/16 12/05/16 12/05/16 08:30 08:43 08:45 Temperature Pulse Rate 101 H 101 H Pulse Rate [ 101 H Bilateral Throughout] Pulse Rate [ From Monitor] Respiratory 20 Rate Respiratory 21 Rate [Bilateral Throughout] Blood Pressure 130/74 130/74 O2 Sat by Pulse 100 99 Oximetry O2 Sat by Pulse Oximetry [ Assessment] 12/05/16 12/05/16 09:00 09:02 Temperature Pulse Rate 105 H Pulse Rate [ 103 H Bilateral Throughout] Pulse Rate [ From Monitor] Respiratory 17 Rate Respiratory 18 Rate [Bilateral Throughout] Blood Pressure 133/80 O2 Sat by Pulse 100 Oximetry O2 Sat by Pulse Oximetry [ Assessment] Constitutional: no acute distress, other (eyes open; no longer tracking movements) Eyes: non-icteric, other (tracheostomy tube in midline of neck) ENT: oropharynx moist Neck: supple, no lymphadenopathy Effort: mildly labored Ascultation: Bilateral: diminished breath sounds (bases), rhonchi (and referred upper airway sounds) Percussion: Bilateral: dull (bases) Cardiovascular: regular rate and rhythm, other (no rubs / murmurs) Gastrointestinal: hypoactive bowel sounds, soft, non-tender, non-distended, other (RLQ stomas with colostomy bags) Integumentary: other (healing back burn-like injury; poor turgor) Extremities: no cyanosis, no edema, pulses normal, no ischemia or petechiae Neurologic: pupils equal and round, other (encephalopathic) Psychiatric: other (unable to assess) CBC and BMP: 12/06/16 06:46 12/06/16 06:00 ABG, PT/INR, D-dimer: ABG POC ABG pH 7.487 (7.35-7.45) H 11/25/16 14:12 ABG pH 7.450 pH Units (7.350-7.450) 12/05/16 Unknown POC ABG pCO2 39.0 (35-45) 11/25/16 14:12 ABG pCO2 29.6 mm Hg 12/05/16 Unknown POC ABG pO2 153 (80-105) H 11/25/16 14:12 ABG pO2 75.2 mm Hg (80.0-90.0) L 12/05/16 Unknown POC ABG HCO3 29.5 11/25/16 14:12 POC ABG Total CO2 31 11/25/16 14:12 POC ABG O2 Sat 99 11/25/16 14:12 ABG O2 Saturation 96.8 % (95.0-99.0) 12/05/16 Unknown PT/INR, D-dimer PT 16.8 Sec. (12.2-14.9) H 11/17/16 03:20 INR 1.37 (0.87-1.13) H 11/17/16 03:20 Abnormal lab findings: Abnormal Labs 09/03/16 09/03/16 09/03/16 12:12 15:07 16:20 WBC RBC Hgb Hct MCV MCH MCHC RDW Plt Count Lymph % (Auto) [place] % (Auto) Lymph # [place] # Baso # Seg Neutrophils % Seg Neuts % (Manual) Lymphocytes % (Manual) Monocytes % (Manual) Eosinophils % (Manual) Basophils % (Manual) Nucleated RBC % Seg Neutrophils # Seg Neutrophils # Man Lymphocytes # (Manual) Monocytes # (Manual) Eosinophils # (Manual) PT INR Fibrinogen dRVVT Confirm Interp Factor V Activity POC ABG pH 7.452 H POC ABG pCO2 POC ABG pO2 ABG pO2 ABG HCO3 ABG Base Excess ABG Hemoglobin Oxyhemoglobin Sodium Potassium Chloride Carbon Dioxide BUN Creatinine Glucose POC Glucose 178 H Lactic Acid Calcium Phosphorus 2.20 L Magnesium 1.60 L Direct Bilirubin AST ALT Alkaline Phosphatase Lactate Dehydrogenase Troponin T C-Reactive Protein Total Protein Albumin Prealbumin Triglycerides Cholesterol LDL Cholesterol Direct HDL Cholesterol Urine pH Urine WBC (Auto) Urine Creatinine Urine Total Protein Fluid Total Protein Vancomycin Trough Rheumatoid Factor Complement C4 Miscellaneous Test Crossmatch 09/03/16 09/03/16 09/03/16 17:57 17:58 23:50 WBC RBC Hgb Hct MCV MCH MCHC RDW Plt Count Lymph % (Auto) [place] % (Auto) Lymph # [place] # Baso # Seg Neutrophils % Seg Neuts % (Manual) Lymphocytes % (Manual) Monocytes % (Manual) Eosinophils % (Manual) Basophils % (Manual) Nucleated RBC % Seg Neutrophils # Seg Neutrophils # Man Lymphocytes # (Manual) Monocytes # (Manual) Eosinophils # (Manual) PT INR Fibrinogen dRVVT Confirm Interp Factor V Activity POC ABG pH POC ABG pCO2 POC ABG pO2 ABG pO2 ABG HCO3 ABG Base Excess ABG Hemoglobin Oxyhemoglobin Sodium Potassium Chloride Carbon Dioxide BUN Creatinine Glucose POC Glucose 162 H 145 H Lactic Acid Calcium Phosphorus 2.30 L Magnesium Direct Bilirubin AST ALT Alkaline Phosphatase Lactate Dehydrogenase Troponin T C-Reactive Protein Total Protein Albumin Prealbumin Triglycerides Cholesterol LDL Cholesterol Direct HDL Cholesterol Urine pH Urine WBC (Auto) Urine Creatinine Urine Total Protein Fluid Total Protein Vancomycin Trough Rheumatoid Factor Complement C4 Miscellaneous Test Crossmatch 09/04/16 09/04/16 09/04/16 03:31 03:31 05:42 WBC RBC Hgb 9.7 L D Hct MCV 72 L MCH 23 L MCHC RDW 17.5 H Plt Count Lymph % (Auto) 11.1 L [place] % (Auto) Lymph # [place] # Baso # Seg Neutrophils % 84.3 H Seg Neuts % (Manual) Lymphocytes % (Manual) Monocytes % (Manual) Eosinophils % (Manual) Basophils % (Manual) Nucleated RBC % Seg Neutrophils # 8.9 H Seg Neutrophils # Man Lymphocytes # (Manual) Monocytes # (Manual) Eosinophils # (Manual) PT INR Fibrinogen dRVVT Confirm Interp Factor V Activity POC ABG pH POC ABG pCO2 POC ABG pO2 ABG pO2 ABG HCO3 ABG Base Excess ABG Hemoglobin Oxyhemoglobin Sodium 135 L Potassium 2.9 L* Chloride 97.2 L Carbon Dioxide 19 L BUN Creatinine 1.7 H Glucose 170 H POC Glucose 152 H Lactic Acid Calcium Phosphorus Magnesium Direct Bilirubin AST ALT Alkaline Phosphatase Lactate Dehydrogenase Troponin T C-Reactive Protein Total Protein Albumin Prealbumin Triglycerides 160 H Cholesterol LDL Cholesterol Direct HDL Cholesterol 31 L Urine pH Urine WBC (Auto) Urine Creatinine Urine Total Protein Fluid Total Protein Vancomycin Trough Rheumatoid Factor Complement C4 Miscellaneous Test Crossmatch 09/04/16 09/04/16 09/04/16 11:34 17:46 23:29 WBC RBC Hgb Hct MCV MCH MCHC RDW Plt Count Lymph % (Auto) [place] % (Auto) Lymph # [place] # Baso # Seg Neutrophils % Seg Neuts % (Manual) Lymphocytes % (Manual) Monocytes % (Manual) Eosinophils % (Manual) Basophils % (Manual) Nucleated RBC % Seg Neutrophils # Seg Neutrophils # Man Lymphocytes # (Manual) Monocytes # (Manual) Eosinophils # (Manual) PT INR Fibrinogen dRVVT Confirm Interp Factor V Activity POC ABG pH POC ABG pCO2 POC ABG pO2 ABG pO2 ABG HCO3 ABG Base Excess ABG Hemoglobin Oxyhemoglobin Sodium Potassium Chloride Carbon Dioxide BUN Creatinine Glucose POC Glucose 165 H 210 H 139 H Lactic Acid Calcium Phosphorus Magnesium Direct Bilirubin AST ALT Alkaline Phosphatase Lactate Dehydrogenase Troponin T C-Reactive Protein Total Protein Albumin Prealbumin Triglycerides Cholesterol LDL Cholesterol Direct HDL Cholesterol Urine pH Urine WBC (Auto) Urine Creatinine Urine Total Protein Fluid Total Protein Vancomycin Trough Rheumatoid Factor Complement C4 Miscellaneous Test Crossmatch 09/05/16 09/05/16 09/05/16 04:05 04:05 05:38 WBC RBC Hgb Hct MCV 76 L D MCH 23 L MCHC RDW 17.8 H Plt Count Lymph % (Auto) [place] % (Auto) Lymph # [place] # Baso # Seg Neutrophils % Seg Neuts % (Manual) Lymphocytes % (Manual) Monocytes % (Manual) Eosinophils % (Manual) Basophils % (Manual) Nucleated RBC % Seg Neutrophils # Seg Neutrophils # Man Lymphocytes # (Manual) Monocytes # (Manual) Eosinophils # (Manual) PT INR Fibrinogen dRVVT Confirm Interp Factor V Activity POC ABG pH POC ABG pCO2 POC ABG pO2 ABG pO2 ABG HCO3 ABG Base Excess ABG Hemoglobin Oxyhemoglobin Sodium 134 L Potassium Chloride Carbon Dioxide 18 L BUN Creatinine 1.8 H Glucose 192 H POC Glucose 175 H Lactic Acid Calcium Phosphorus Magnesium Direct Bilirubin AST ALT Alkaline Phosphatase Lactate Dehydrogenase Troponin T C-Reactive Protein Total Protein Albumin Prealbumin Triglycerides Cholesterol LDL Cholesterol Direct HDL Cholesterol Urine pH Urine WBC (Auto) Urine Creatinine Urine Total Protein Fluid Total Protein Vancomycin Trough Rheumatoid Factor Complement C4 Miscellaneous Test Crossmatch 09/05/16 09/05/16 09/05/16 11:38 17:48 23:22 WBC RBC Hgb Hct MCV MCH MCHC RDW Plt Count Lymph % (Auto) [place] % (Auto) Lymph # [place] # Baso # Seg Neutrophils % Seg Neuts % (Manual) Lymphocytes % (Manual) Monocytes % (Manual) Eosinophils % (Manual) Basophils % (Manual) Nucleated RBC % Seg Neutrophils # Seg Neutrophils # Man Lymphocytes # (Manual) Monocytes # (Manual) Eosinophils # (Manual) PT INR Fibrinogen dRVVT Confirm Interp Factor V Activity POC ABG pH POC ABG pCO2 POC ABG pO2 ABG pO2 ABG HCO3 ABG Base Excess ABG Hemoglobin Oxyhemoglobin Sodium Potassium Chloride Carbon Dioxide BUN Creatinine Glucose POC Glucose 164 H 186 H 195 H Lactic Acid Calcium Phosphorus Magnesium Direct Bilirubin AST ALT Alkaline Phosphatase Lactate Dehydrogenase Troponin T C-Reactive Protein Total Protein Albumin Prealbumin Triglycerides Cholesterol LDL Cholesterol Direct HDL Cholesterol Urine pH Urine WBC (Auto) Urine Creatinine Urine Total Protein Fluid Total Protein Vancomycin Trough Rheumatoid Factor Complement C4 Miscellaneous Test Crossmatch 09/06/16 09/06/16 09/06/16 04:12 05:59 07:32 WBC RBC Hgb Hct MCV MCH MCHC RDW Plt Count Lymph % (Auto) [place] % (Auto) Lymph # [place] # Baso # Seg Neutrophils % Seg Neuts % (Manual) Lymphocytes % (Manual) Monocytes % (Manual) Eosinophils % (Manual) Basophils % (Manual) Nucleated RBC % Seg Neutrophils # Seg Neutrophils # Man Lymphocytes # (Manual) Monocytes # (Manual) Eosinophils # (Manual) PT INR Fibrinogen dRVVT Confirm Interp Factor V Activity POC ABG pH 7.514 H POC ABG pCO2 29.1 L POC ABG pO2 72 L ABG pO2 ABG HCO3 ABG Base Excess ABG Hemoglobin Oxyhemoglobin Sodium 133 L Potassium 3.4 L Chloride 94.9 L Carbon Dioxide 19 L BUN 30 H Creatinine 2.1 H Glucose 139 H POC Glucose 146 H Lactic Acid Calcium Phosphorus Magnesium Direct Bilirubin AST ALT Alkaline Phosphatase Lactate Dehydrogenase Troponin T C-Reactive Protein Total Protein Albumin Prealbumin Triglycerides Cholesterol LDL Cholesterol Direct HDL Cholesterol Urine pH Urine WBC (Auto) Urine Creatinine Urine Total Protein Fluid Total Protein Vancomycin Trough Rheumatoid Factor Complement C4 Miscellaneous Test Crossmatch 09/06/16 09/06/16 09/06/16 11:57 17:58 19:02 WBC RBC Hgb Hct MCV MCH MCHC RDW Plt Count Lymph % (Auto) [place] % (Auto) Lymph # [place] # Baso # Seg Neutrophils % Seg Neuts % (Manual) Lymphocytes % (Manual) Monocytes % (Manual) Eosinophils % (Manual) Basophils % (Manual) Nucleated RBC % Seg Neutrophils # Seg Neutrophils # Man Lymphocytes # (Manual) Monocytes # (Manual) Eosinophils # (Manual) PT INR Fibrinogen dRVVT Confirm Interp Factor V Activity POC ABG pH 7.465 H POC ABG pCO2 32.0 L POC ABG pO2 ABG pO2 ABG HCO3 ABG Base Excess ABG Hemoglobin Oxyhemoglobin Sodium Potassium Chloride Carbon Dioxide BUN Creatinine Glucose POC Glucose 165 H 160 H Lactic Acid Calcium Phosphorus Magnesium Direct Bilirubin AST ALT Alkaline Phosphatase Lactate Dehydrogenase Troponin T C-Reactive Protein Total Protein Albumin Prealbumin Triglycerides Cholesterol LDL Cholesterol Direct HDL Cholesterol Urine pH Urine WBC (Auto) Urine Creatinine Urine Total Protein Fluid Total Protein Vancomycin Trough Rheumatoid Factor Complement C4 Miscellaneous Test Crossmatch 09/06/16 09/07/16 09/07/16 23:45 02:47 02:47 WBC RBC Hgb Hct MCV MCH MCHC RDW Plt Count Lymph % (Auto) [place] % (Auto) Lymph # [place] # Baso # Seg Neutrophils % Seg Neuts % (Manual) Lymphocytes % (Manual) Monocytes % (Manual) Eosinophils % (Manual) Basophils % (Manual) Nucleated RBC % Seg Neutrophils # Seg Neutrophils # Man Lymphocytes # (Manual) Monocytes # (Manual) Eosinophils # (Manual) PT INR Fibrinogen dRVVT Confirm Interp Factor V Activity POC ABG pH POC ABG pCO2 POC ABG pO2 ABG pO2 ABG HCO3 ABG Base Excess ABG Hemoglobin Oxyhemoglobin Sodium Potassium Chloride Carbon Dioxide BUN Creatinine Glucose POC Glucose 204 H Lactic Acid Calcium Phosphorus Magnesium Direct Bilirubin AST ALT Alkaline Phosphatase Lactate Dehydrogenase Troponin T C-Reactive Protein Total Protein Albumin Prealbumin Triglycerides Cholesterol LDL Cholesterol Direct HDL Cholesterol Urine pH Urine WBC (Auto) 68.0 H Urine Creatinine 106.1 H Urine Total Protein Fluid Total Protein Vancomycin Trough Rheumatoid Factor Complement C4 Miscellaneous Test Crossmatch 09/07/16 09/07/16 09/07/16 04:50 06:19 06:39 WBC RBC Hgb Hct MCV MCH MCHC RDW Plt Count Lymph % (Auto) [place] % (Auto) Lymph # [place] # Baso # Seg Neutrophils % Seg Neuts % (Manual) Lymphocytes % (Manual) Monocytes % (Manual) Eosinophils % (Manual) Basophils % (Manual) Nucleated RBC % Seg Neutrophils # Seg Neutrophils # Man Lymphocytes # (Manual) Monocytes # (Manual) Eosinophils # (Manual) PT INR Fibrinogen dRVVT Confirm Interp Factor V Activity POC ABG pH 7.457 H POC ABG pCO2 32.1 L POC ABG pO2 76 L ABG pO2 ABG HCO3 ABG Base Excess ABG Hemoglobin Oxyhemoglobin Sodium 132 L Potassium Chloride 94.7 L Carbon Dioxide BUN 53 H Creatinine 2.9 H Glucose 151 H POC Glucose 149 H Lactic Acid Calcium Phosphorus Magnesium Direct Bilirubin AST ALT Alkaline Phosphatase Lactate Dehydrogenase Troponin T C-Reactive Protein Total Protein Albumin Prealbumin Triglycerides Cholesterol LDL Cholesterol Direct HDL Cholesterol Urine pH Urine WBC (Auto) Urine Creatinine Urine Total Protein Fluid Total Protein Vancomycin Trough Rheumatoid Factor Complement C4 Miscellaneous Test Crossmatch 09/07/16 09/07/16 09/07/16 09:20 11:43 11:43 WBC 19.4 H RBC Hgb 8.3 L Hct 26.4 L D MCV 72 L D MCH 22 L MCHC RDW 17.9 H Plt Count Lymph % (Auto) 8.5 L [place] % (Auto) Lymph # [place] # 1.0 H Baso # Seg Neutrophils % 85.8 H Seg Neuts % (Manual) Lymphocytes % (Manual) Monocytes % (Manual) Eosinophils % (Manual) Basophils % (Manual) Nucleated RBC % Seg Neutrophils # 16.6 H Seg Neutrophils # Man Lymphocytes # (Manual) Monocytes # (Manual) Eosinophils # (Manual) PT INR Fibrinogen dRVVT Confirm Interp Factor V Activity POC ABG pH POC ABG pCO2 POC ABG pO2 ABG pO2 ABG HCO3 ABG Base Excess ABG Hemoglobin Oxyhemoglobin Sodium 134 L Potassium Chloride 97.2 L Carbon Dioxide 20 L BUN 58 H Creatinine 2.9 H Glucose 147 H POC Glucose Lactic Acid Calcium Phosphorus 2.40 L Magnesium 2.40 H Direct Bilirubin AST ALT Alkaline Phosphatase Lactate Dehydrogenase Troponin T C-Reactive Protein Total Protein 5.8 L Albumin 2.2 L Prealbumin Triglycerides Cholesterol LDL Cholesterol Direct HDL Cholesterol Urine pH Urine WBC (Auto) Urine Creatinine Urine Total Protein Fluid Total Protein Vancomycin Trough Rheumatoid Factor Complement C4 58 H Miscellaneous Test Crossmatch 09/07/16 09/07/16 09/07/16 11:50 16:00 17:31 WBC RBC Hgb Hct MCV MCH MCHC RDW Plt Count Lymph % (Auto) [place] % (Auto) Lymph # [place] # Baso # Seg Neutrophils % Seg Neuts % (Manual) Lymphocytes % (Manual) Monocytes % (Manual) Eosinophils % (Manual) Basophils % (Manual) Nucleated RBC % Seg Neutrophils # Seg Neutrophils # Man Lymphocytes # (Manual) Monocytes # (Manual) Eosinophils # (Manual) PT INR Fibrinogen dRVVT Confirm Interp Factor V Activity POC ABG pH POC ABG pCO2 POC ABG pO2 158 H ABG pO2 ABG HCO3 ABG Base Excess ABG Hemoglobin Oxyhemoglobin Sodium Potassium Chloride Carbon Dioxide BUN Creatinine Glucose POC Glucose 175 H Lactic Acid Calcium Phosphorus Magnesium Direct Bilirubin AST ALT Alkaline Phosphatase Lactate Dehydrogenase Troponin T C-Reactive Protein Total Protein Albumin Prealbumin Triglycerides Cholesterol LDL Cholesterol Direct HDL Cholesterol Urine pH Urine WBC (Auto) Urine Creatinine 66.3 H Urine Total Protein Fluid Total Protein Vancomycin Trough Rheumatoid Factor Complement C4 Miscellaneous Test Crossmatch 09/07/16 09/08/16 09/08/16 23:50 05:46 06:18 WBC 17.8 H RBC 3.58 L Hgb 8.1 L Hct 25.5 L MCV 71 L MCH 23 L MCHC RDW 18.4 H Plt Count Lymph % (Auto) [place] % (Auto) Lymph # [place] # Baso # Seg Neutrophils % Seg Neuts % (Manual) 92.0 H Lymphocytes % (Manual) 6.0 L Monocytes % (Manual) Eosinophils % (Manual) Basophils % (Manual) Nucleated RBC % Seg Neutrophils # Seg Neutrophils # Man 16.4 H Lymphocytes # (Manual) 1.1 L Monocytes # (Manual) Eosinophils # (Manual) PT INR Fibrinogen dRVVT Confirm Interp Factor V Activity POC ABG pH POC ABG pCO2 34.3 L POC ABG pO2 71 L ABG pO2 ABG HCO3 ABG Base Excess ABG Hemoglobin Oxyhemoglobin Sodium Potassium Chloride Carbon Dioxide BUN Creatinine Glucose POC Glucose 216 H Lactic Acid Calcium Phosphorus Magnesium Direct Bilirubin AST ALT Alkaline Phosphatase Lactate Dehydrogenase Troponin T C-Reactive Protein Total Protein Albumin Prealbumin Triglycerides Cholesterol LDL Cholesterol Direct HDL Cholesterol Urine pH Urine WBC (Auto) Urine Creatinine Urine Total Protein Fluid Total Protein Vancomycin Trough Rheumatoid Factor Complement C4 Miscellaneous Test Crossmatch 09/08/16 09/08/16 09/08/16 06:18 06:51 10:55 WBC RBC Hgb Hct MCV MCH MCHC RDW Plt Count Lymph % (Auto) [place] % (Auto) Lymph # [place] # Baso # Seg Neutrophils % Seg Neuts % (Manual) Lymphocytes % (Manual) Monocytes % (Manual) Eosinophils % (Manual) Basophils % (Manual) Nucleated RBC % Seg Neutrophils # Seg Neutrophils # Man Lymphocytes # (Manual) Monocytes # (Manual) Eosinophils # (Manual) PT INR Fibrinogen dRVVT Confirm Interp Factor V Activity POC ABG pH POC ABG pCO2 POC ABG pO2 ABG pO2 ABG HCO3 ABG Base Excess ABG Hemoglobin Oxyhemoglobin Sodium 133 L Potassium Chloride 96.9 L Carbon Dioxide 20 L BUN 63 H Creatinine 2.7 H Glucose 195 H POC Glucose 204 H 169 H Lactic Acid Calcium Phosphorus Magnesium Direct Bilirubin AST ALT Alkaline Phosphatase Lactate Dehydrogenase Troponin T C-Reactive Protein Total Protein Albumin Prealbumin Triglycerides Cholesterol LDL Cholesterol Direct HDL Cholesterol Urine pH Urine WBC (Auto) Urine Creatinine Urine Total Protein Fluid Total Protein Vancomycin Trough Rheumatoid Factor Complement C4 Miscellaneous Test Crossmatch 09/08/16 09/08/16 09/08/16 11:48 11:48 11:48 WBC RBC Hgb Hct MCV MCH MCHC RDW Plt Count Lymph % (Auto) [place] % (Auto) Lymph # [place] # Baso # Seg Neutrophils % Seg Neuts % (Manual) Lymphocytes % (Manual) Monocytes % (Manual) Eosinophils % (Manual) Basophils % (Manual) Nucleated RBC % Seg Neutrophils # Seg Neutrophils # Man Lymphocytes # (Manual) Monocytes # (Manual) Eosinophils # (Manual) PT INR Fibrinogen 750 H dRVVT Confirm Interp Factor V Activity POC ABG pH POC ABG pCO2 POC ABG pO2 ABG pO2 ABG HCO3 ABG Base Excess ABG Hemoglobin Oxyhemoglobin Sodium Potassium Chloride Carbon Dioxide BUN Creatinine Glucose POC Glucose Lactic Acid Calcium Phosphorus Magnesium Direct Bilirubin AST ALT Alkaline Phosphatase Lactate Dehydrogenase Troponin T C-Reactive Protein 15.70 H Total Protein Albumin Prealbumin Triglycerides Cholesterol LDL Cholesterol Direct HDL Cholesterol Urine pH Urine WBC (Auto) Urine Creatinine Urine Total Protein Fluid Total Protein Vancomycin Trough Rheumatoid Factor 24 H Complement C4 Miscellaneous Test Crossmatch 09/08/16 09/08/16 09/09/16 15:35 18:25 00:24 WBC RBC Hgb Hct MCV MCH MCHC RDW Plt Count Lymph % (Auto) [place] % (Auto) Lymph # [place] # Baso # Seg Neutrophils % Seg Neuts % (Manual) Lymphocytes % (Manual) Monocytes % (Manual) Eosinophils % (Manual) Basophils % (Manual) Nucleated RBC % Seg Neutrophils # Seg Neutrophils # Man Lymphocytes # (Manual) Monocytes # (Manual) Eosinophils # (Manual) PT INR Fibrinogen dRVVT Confirm Interp Factor V Activity 182 H POC ABG pH POC ABG pCO2 POC ABG pO2 ABG pO2 ABG HCO3 ABG Base Excess ABG Hemoglobin Oxyhemoglobin Sodium Potassium Chloride Carbon Dioxide BUN Creatinine Glucose POC Glucose 184 H 216 H Lactic Acid Calcium Phosphorus Magnesium Direct Bilirubin AST ALT Alkaline Phosphatase Lactate Dehydrogenase Troponin T C-Reactive Protein Total Protein Albumin Prealbumin Triglycerides Cholesterol LDL Cholesterol Direct HDL Cholesterol Urine pH Urine WBC (Auto) Urine Creatinine Urine Total Protein Fluid Total Protein Vancomycin Trough Rheumatoid Factor Complement C4 Miscellaneous Test Crossmatch 09/09/16 09/09/16 09/09/16 03:00 03:00 04:04 WBC 27.9 H RBC Hgb 8.7 L Hct 28.1 L MCV 72 L MCH 22 L MCHC RDW 18.4 H Plt Count 485 H Lymph % (Auto) [place] % (Auto) Lymph # [place] # Baso # Seg Neutrophils % Seg Neuts % (Manual) 77.0 H Lymphocytes % (Manual) 9.0 L Monocytes % (Manual) Eosinophils % (Manual) Basophils % (Manual) Nucleated RBC % Seg Neutrophils # Seg Neutrophils # Man 21.5 H Lymphocytes # (Manual) Monocytes # (Manual) 2.0 H Eosinophils # (Manual) PT INR Fibrinogen dRVVT Confirm Interp Factor V Activity POC ABG pH POC ABG pCO2 POC ABG pO2 121 H ABG pO2 ABG HCO3 ABG Base Excess ABG Hemoglobin Oxyhemoglobin Sodium 135 L Potassium Chloride 96.3 L Carbon Dioxide 21 L BUN 83 H Creatinine 3.0 H Glucose 135 H POC Glucose Lactic Acid Calcium Phosphorus Magnesium Direct Bilirubin AST ALT Alkaline Phosphatase Lactate Dehydrogenase Troponin T C-Reactive Protein Total Protein Albumin Prealbumin Triglycerides Cholesterol LDL Cholesterol Direct HDL Cholesterol Urine pH Urine WBC (Auto) Urine Creatinine Urine Total Protein Fluid Total Protein Vancomycin Trough Rheumatoid Factor Complement C4 Miscellaneous Test Crossmatch 09/09/16 09/09/16 09/09/16 05:41 11:55 14:13 WBC RBC Hgb Hct MCV MCH MCHC RDW Plt Count Lymph % (Auto) [place] % (Auto) Lymph # [place] # Baso # Seg Neutrophils % Seg Neuts % (Manual) Lymphocytes % (Manual) Monocytes % (Manual) Eosinophils % (Manual) Basophils % (Manual) Nucleated RBC % Seg Neutrophils # Seg Neutrophils # Man Lymphocytes # (Manual) Monocytes # (Manual) Eosinophils # (Manual) PT INR Fibrinogen dRVVT Confirm Interp Factor V Activity POC ABG pH POC ABG pCO2 POC ABG pO2 ABG pO2 ABG HCO3 ABG Base Excess ABG Hemoglobin Oxyhemoglobin Sodium Potassium Chloride Carbon Dioxide BUN Creatinine Glucose POC Glucose 155 H 186 H Lactic Acid Calcium Phosphorus Magnesium Direct Bilirubin AST ALT Alkaline Phosphatase Lactate Dehydrogenase Troponin T C-Reactive Protein Total Protein Albumin Prealbumin Triglycerides Cholesterol LDL Cholesterol Direct HDL Cholesterol Urine pH Urine WBC (Auto) 25.0 H Urine Creatinine Urine Total Protein Fluid Total Protein Vancomycin Trough Rheumatoid Factor Complement C4 Miscellaneous Test Crossmatch 09/09/16 09/09/16 09/10/16 17:33 23:13 05:09 WBC RBC Hgb Hct MCV MCH MCHC RDW Plt Count Lymph % (Auto) [place] % (Auto) Lymph # [place] # Baso # Seg Neutrophils % Seg Neuts % (Manual) Lymphocytes % (Manual) Monocytes % (Manual) Eosinophils % (Manual) Basophils % (Manual) Nucleated RBC % Seg Neutrophils # Seg Neutrophils # Man Lymphocytes # (Manual) Monocytes # (Manual) Eosinophils # (Manual) PT INR Fibrinogen dRVVT Confirm Interp Factor V Activity POC ABG pH POC ABG pCO2 POC ABG pO2 74 L ABG pO2 ABG HCO3 ABG Base Excess ABG Hemoglobin Oxyhemoglobin Sodium Potassium Chloride Carbon Dioxide BUN Creatinine Glucose POC Glucose 211 H 215 H Lactic Acid Calcium Phosphorus Magnesium Direct Bilirubin AST ALT Alkaline Phosphatase Lactate Dehydrogenase Troponin T C-Reactive Protein Total Protein Albumin Prealbumin Triglycerides Cholesterol LDL Cholesterol Direct HDL Cholesterol Urine pH Urine WBC (Auto) Urine Creatinine Urine Total Protein Fluid Total Protein Vancomycin Trough Rheumatoid Factor Complement C4 Miscellaneous Test Crossmatch 09/10/16 09/10/16 09/10/16 05:17 05:17 11:31 WBC 15.8 H RBC 3.25 L Hgb 7.3 L Hct 22.9 L MCV 71 L MCH 23 L MCHC RDW 18.4 H Plt Count Lymph % (Auto) [place] % (Auto) Lymph # [place] # Baso # Seg Neutrophils % Seg Neuts % (Manual) 91.0 H Lymphocytes % (Manual) 4.0 L Monocytes % (Manual) Eosinophils % (Manual) Basophils % (Manual) Nucleated RBC % Seg Neutrophils # Seg Neutrophils # Man 14.4 H Lymphocytes # (Manual) 0.6 L Monocytes # (Manual) Eosinophils # (Manual) PT INR Fibrinogen dRVVT Confirm Interp Factor V Activity POC ABG pH POC ABG pCO2 POC ABG pO2 ABG pO2 ABG HCO3 ABG Base Excess ABG Hemoglobin Oxyhemoglobin Sodium Potassium Chloride Carbon Dioxide 21 L BUN 93 H Creatinine 2.9 H Glucose 146 H POC Glucose 188 H Lactic Acid Calcium 8.1 L Phosphorus Magnesium Direct Bilirubin AST ALT Alkaline Phosphatase Lactate Dehydrogenase Troponin T C-Reactive Protein Total Protein Albumin Prealbumin Triglycerides Cholesterol LDL Cholesterol Direct HDL Cholesterol Urine pH Urine WBC (Auto) Urine Creatinine Urine Total Protein Fluid Total Protein Vancomycin Trough Rheumatoid Factor Complement C4 Miscellaneous Test Crossmatch 09/10/16 09/10/16 09/10/16 13:17 17:20 23:32 WBC RBC Hgb Hct MCV MCH MCHC RDW Plt Count Lymph % (Auto) [place] % (Auto) Lymph # [place] # Baso # Seg Neutrophils % Seg Neuts % (Manual) Lymphocytes % (Manual) Monocytes % (Manual) Eosinophils % (Manual) Basophils % (Manual) Nucleated RBC % Seg Neutrophils # Seg Neutrophils # Man Lymphocytes # (Manual) Monocytes # (Manual) Eosinophils # (Manual) PT INR Fibrinogen dRVVT Confirm Interp Factor V Activity POC ABG pH POC ABG pCO2 POC ABG pO2 ABG pO2 ABG HCO3 ABG Base Excess ABG Hemoglobin Oxyhemoglobin Sodium Potassium Chloride Carbon Dioxide BUN Creatinine Glucose POC Glucose 199 H 186 H Lactic Acid Calcium Phosphorus Magnesium Direct Bilirubin AST ALT Alkaline Phosphatase Lactate Dehydrogenase Troponin T C-Reactive Protein Total Protein Albumin Prealbumin Triglycerides Cholesterol LDL Cholesterol Direct HDL Cholesterol Urine pH Urine WBC (Auto) Urine Creatinine Urine Total Protein Fluid Total Protein Vancomycin Trough Rheumatoid Factor Complement C4 Miscellaneous Test Crossmatch See Detail 07/23/17 07/23/17 07/23/17 05:10 05:10 05:17 WBC 28.4 H RBC Hgb 9.2 L Hct 29.3 L D MCV 73 L MCH 23 L MCHC RDW 18.9 H Plt Count 452 H Lymph % (Auto) [place] % (Auto) Lymph # [place] # Baso # Seg Neutrophils % Seg Neuts % (Manual) 89.5 H Lymphocytes % (Manual) 2.0 L Monocytes % (Manual) Eosinophils % (Manual) Basophils % (Manual) Nucleated RBC % Seg Neutrophils # Seg Neutrophils # Man 25.4 H Lymphocytes # (Manual) 0.6 L Monocytes # (Manual) 1.3 H Eosinophils # (Manual) PT INR Fibrinogen dRVVT Confirm Interp Factor V Activity POC ABG pH POC ABG pCO2 POC ABG pO2 ABG pO2 ABG HCO3 ABG Base Excess ABG Hemoglobin Oxyhemoglobin Sodium 136 L Potassium Chloride Carbon Dioxide 18 L BUN 107 H Creatinine 2.6 H Glucose 187 H POC Glucose 230 H Lactic Acid Calcium 8.3 L Phosphorus Magnesium Direct Bilirubin AST ALT Alkaline Phosphatase Lactate Dehydrogenase Troponin T C-Reactive Protein Total Protein Albumin Prealbumin Triglycerides Cholesterol LDL Cholesterol Direct HDL Cholesterol Urine pH Urine WBC (Auto) Urine Creatinine Urine Total Protein Fluid Total Protein Vancomycin Trough Rheumatoid Factor Complement C4 Miscellaneous Test Crossmatch 09/11/16 09/11/16 09/11/16 05:55 12:02 17:32 WBC RBC Hgb Hct MCV MCH MCHC RDW Plt Count Lymph % (Auto) [place] % (Auto) Lymph # [place] # Baso # Seg Neutrophils % Seg Neuts % (Manual) Lymphocytes % (Manual) Monocytes % (Manual) Eosinophils % (Manual) Basophils % (Manual) Nucleated RBC % Seg Neutrophils # Seg Neutrophils # Man Lymphocytes # (Manual) Monocytes # (Manual) Eosinophils # (Manual) PT INR Fibrinogen dRVVT Confirm Interp Factor V Activity POC ABG pH POC ABG pCO2 33.8 L POC ABG pO2 ABG pO2 ABG HCO3 ABG Base Excess ABG Hemoglobin Oxyhemoglobin Sodium Potassium Chloride Carbon Dioxide BUN Creatinine Glucose POC Glucose 191 H 239 H Lactic Acid Calcium Phosphorus Magnesium Direct Bilirubin AST ALT Alkaline Phosphatase Lactate Dehydrogenase Troponin T C-Reactive Protein Total Protein Albumin Prealbumin Triglycerides Cholesterol LDL Cholesterol Direct HDL Cholesterol Urine pH Urine WBC (Auto) Urine Creatinine Urine Total Protein Fluid Total Protein Vancomycin Trough Rheumatoid Factor Complement C4 Miscellaneous Test Crossmatch 09/11/16 09/12/16 09/12/16 23:52 05:09 05:32 WBC RBC Hgb Hct MCV MCH MCHC RDW Plt Count Lymph % (Auto) [place] % (Auto) Lymph # [place] # Baso # Seg Neutrophils % Seg Neuts % (Manual) Lymphocytes % (Manual) Monocytes % (Manual) Eosinophils % (Manual) Basophils % (Manual) Nucleated RBC % Seg Neutrophils # Seg Neutrophils # Man Lymphocytes # (Manual) Monocytes # (Manual) Eosinophils # (Manual) PT INR Fibrinogen dRVVT Confirm Interp Factor V Activity POC ABG pH POC ABG pCO2 34.6 L POC ABG pO2 ABG pO2 ABG HCO3 ABG Base Excess ABG Hemoglobin Oxyhemoglobin Sodium Potassium Chloride Carbon Dioxide BUN Creatinine Glucose POC Glucose 265 H 184 H Lactic Acid Calcium Phosphorus Magnesium Direct Bilirubin AST ALT Alkaline Phosphatase Lactate Dehydrogenase Troponin T C-Reactive Protein Total Protein Albumin Prealbumin Triglycerides Cholesterol LDL Cholesterol Direct HDL Cholesterol Urine pH Urine WBC (Auto) Urine Creatinine Urine Total Protein Fluid Total Protein Vancomycin Trough Rheumatoid Factor Complement C4 Miscellaneous Test Crossmatch 09/12/16 09/12/16 09/12/16 06:45 06:45 07:22 WBC 31.7 H RBC 3.54 L Hgb 8.3 L Hct 25.9 L MCV 73 L MCH 23 L MCHC RDW 18.9 H Plt Count Lymph % (Auto) [place] % (Auto) Lymph # [place] # Baso # Seg Neutrophils % Seg Neuts % (Manual) 88.5 H Lymphocytes % (Manual) 4.5 L Monocytes % (Manual) Eosinophils % (Manual) Basophils % (Manual) Nucleated RBC % Seg Neutrophils # Seg Neutrophils # Man 28.1 H Lymphocytes # (Manual) Monocytes # (Manual) 1.0 H Eosinophils # (Manual) PT INR Fibrinogen dRVVT Confirm Interp Factor V Activity POC ABG pH POC ABG pCO2 POC ABG pO2 ABG pO2 ABG HCO3 ABG Base Excess ABG Hemoglobin Oxyhemoglobin Sodium Potassium Chloride Carbon Dioxide 20 L BUN 115 H Creatinine 2.7 H Glucose 165 H POC Glucose Lactic Acid Calcium 8.0 L Phosphorus Magnesium Direct Bilirubin AST ALT Alkaline Phosphatase Lactate Dehydrogenase Troponin T C-Reactive Protein Total Protein Albumin Prealbumin Triglycerides 217 H Cholesterol LDL Cholesterol Direct HDL Cholesterol Urine pH Urine WBC (Auto) Urine Creatinine Urine Total Protein Fluid Total Protein Vancomycin Trough Rheumatoid Factor Complement C4 Miscellaneous Test Crossmatch 09/12/16 09/12/16 09/12/16 07:22 09:59 12:21 WBC RBC Hgb Hct MCV MCH MCHC RDW Plt Count Lymph % (Auto) [place] % (Auto) Lymph # [place] # Baso # Seg Neutrophils % Seg Neuts % (Manual) Lymphocytes % (Manual) Monocytes % (Manual) Eosinophils % (Manual) Basophils % (Manual) Nucleated RBC % Seg Neutrophils # Seg Neutrophils # Man Lymphocytes # (Manual) Monocytes # (Manual) Eosinophils # (Manual) PT INR Fibrinogen dRVVT Confirm Interp Positive H Factor V Activity POC ABG pH POC ABG pCO2 POC ABG pO2 ABG pO2 ABG HCO3 ABG Base Excess ABG Hemoglobin Oxyhemoglobin Sodium Potassium Chloride Carbon Dioxide BUN Creatinine Glucose POC Glucose 224 H Lactic Acid Calcium Phosphorus Magnesium Direct Bilirubin AST ALT Alkaline Phosphatase Lactate Dehydrogenase Troponin T C-Reactive Protein 1.70 H Total Protein Albumin Prealbumin Triglycerides Cholesterol LDL Cholesterol Direct HDL Cholesterol Urine pH Urine WBC (Auto) Urine Creatinine Urine Total Protein Fluid Total Protein Vancomycin Trough Rheumatoid Factor Complement C4 Miscellaneous Test Crossmatch 09/12/16 09/12/16 09/13/16 16:51 23:28 04:00 WBC 45.0 H* RBC Hgb 9.4 L Hct MCV 75 L MCH 23 L MCHC RDW 19.0 H Plt Count 470 H Lymph % (Auto) [place] % (Auto) Lymph # [place] # Baso # Seg Neutrophils % Seg Neuts % (Manual) 89.0 H Lymphocytes % (Manual) 5.0 L Monocytes % (Manual) Eosinophils % (Manual) Basophils % (Manual) Nucleated RBC % Seg Neutrophils # Seg Neutrophils # Man 40.1 H Lymphocytes # (Manual) Monocytes # (Manual) Eosinophils # (Manual) PT INR Fibrinogen dRVVT Confirm Interp Factor V Activity POC ABG pH POC ABG pCO2 POC ABG pO2 ABG pO2 ABG HCO3 ABG Base Excess ABG Hemoglobin Oxyhemoglobin Sodium Potassium Chloride Carbon Dioxide BUN Creatinine Glucose POC Glucose 169 H 150 H Lactic Acid Calcium Phosphorus Magnesium Direct Bilirubin AST ALT Alkaline Phosphatase Lactate Dehydrogenase Troponin T C-Reactive Protein Total Protein Albumin Prealbumin Triglycerides Cholesterol LDL Cholesterol Direct HDL Cholesterol Urine pH Urine WBC (Auto) Urine Creatinine Urine Total Protein Fluid Total Protein Vancomycin Trough Rheumatoid Factor Complement C4 Miscellaneous Test Crossmatch 09/13/16 09/13/16 09/13/16 04:00 11:26 17:31 WBC RBC Hgb Hct MCV MCH MCHC RDW Plt Count Lymph % (Auto) [place] % (Auto) Lymph # [place] # Baso # Seg Neutrophils % Seg Neuts % (Manual) Lymphocytes % (Manual) Monocytes % (Manual) Eosinophils % (Manual) Basophils % (Manual) Nucleated RBC % Seg Neutrophils # Seg Neutrophils # Man Lymphocytes # (Manual) Monocytes # (Manual) Eosinophils # (Manual) PT INR Fibrinogen dRVVT Confirm Interp Factor V Activity POC ABG pH POC ABG pCO2 POC ABG pO2 ABG pO2 ABG HCO3 ABG Base Excess ABG Hemoglobin Oxyhemoglobin Sodium Potassium Chloride Carbon Dioxide 20 L BUN 116 H Creatinine 3.0 H Glucose 172 H POC Glucose 140 H 183 H Lactic Acid Calcium Phosphorus Magnesium Direct Bilirubin AST ALT Alkaline Phosphatase Lactate Dehydrogenase Troponin T C-Reactive Protein Total Protein 6.2 L Albumin 2.9 L Prealbumin Triglycerides Cholesterol LDL Cholesterol Direct HDL Cholesterol Urine pH Urine WBC (Auto) Urine Creatinine Urine Total Protein Fluid Total Protein Vancomycin Trough Rheumatoid Factor Complement C4 Miscellaneous Test Crossmatch 09/13/16 09/14/16 09/14/16 23:23 04:06 04:07 WBC 29.4 H RBC Hgb 8.9 L Hct 27.3 L MCV 75 L MCH 24 L MCHC RDW 19.1 H Plt Count Lymph % (Auto) [place] % (Auto) Lymph # [place] # Baso # Seg Neutrophils % Seg Neuts % (Manual) 84.0 H Lymphocytes % (Manual) 6.0 L Monocytes % (Manual) 9.0 H Eosinophils % (Manual) Basophils % (Manual) Nucleated RBC % Seg Neutrophils # Seg Neutrophils # Man 24.7 H Lymphocytes # (Manual) Monocytes # (Manual) 2.6 H Eosinophils # (Manual) PT INR Fibrinogen dRVVT Confirm Interp Factor V Activity POC ABG pH 7.342 L POC ABG pCO2 POC ABG pO2 116 H ABG pO2 ABG HCO3 ABG Base Excess ABG Hemoglobin Oxyhemoglobin Sodium Potassium Chloride Carbon Dioxide BUN Creatinine Glucose POC Glucose 154 H Lactic Acid Calcium Phosphorus Magnesium Direct Bilirubin AST ALT Alkaline Phosphatase Lactate Dehydrogenase Troponin T C-Reactive Protein Total Protein Albumin Prealbumin Triglycerides Cholesterol LDL Cholesterol Direct HDL Cholesterol Urine pH Urine WBC (Auto) Urine Creatinine Urine Total Protein Fluid Total Protein Vancomycin Trough Rheumatoid Factor Complement C4 Miscellaneous Test Crossmatch 09/14/16 09/14/16 09/14/16 04:07 05:29 12:19 WBC RBC Hgb Hct MCV MCH MCHC RDW Plt Count Lymph % (Auto) [place] % (Auto) Lymph # [place] # Baso # Seg Neutrophils % Seg Neuts % (Manual) Lymphocytes % (Manual) Monocytes % (Manual) Eosinophils % (Manual) Basophils % (Manual) Nucleated RBC % Seg Neutrophils # Seg Neutrophils # Man Lymphocytes # (Manual) Monocytes # (Manual) Eosinophils # (Manual) PT INR Fibrinogen dRVVT Confirm Interp Factor V Activity POC ABG pH POC ABG pCO2 POC ABG pO2 ABG pO2 ABG HCO3 ABG Base Excess ABG Hemoglobin Oxyhemoglobin Sodium 136 L Potassium Chloride Carbon Dioxide 18 L BUN 121 H Creatinine 2.8 H Glucose 214 H POC Glucose 239 H 181 H Lactic Acid Calcium Phosphorus Magnesium Direct Bilirubin AST ALT Alkaline Phosphatase Lactate Dehydrogenase Troponin T C-Reactive Protein Total Protein Albumin Prealbumin Triglycerides Cholesterol LDL Cholesterol Direct HDL Cholesterol Urine pH Urine WBC (Auto) Urine Creatinine Urine Total Protein Fluid Total Protein Vancomycin Trough Rheumatoid Factor Complement C4 Miscellaneous Test Crossmatch 09/14/16 09/14/16 09/15/16 18:12 23:37 05:00 WBC 26.1 H RBC 3.05 L Hgb 7.2 L Hct 22.9 L MCV 75 L MCH 24 L MCHC RDW 19.0 H Plt Count Lymph % (Auto) [place] % (Auto) Lymph # [place] # Baso # Seg Neutrophils % Seg Neuts % (Manual) Lymphocytes % (Manual) Monocytes % (Manual) Eosinophils % (Manual) Basophils % (Manual) Nucleated RBC % Seg Neutrophils # Seg Neutrophils # Man Lymphocytes # (Manual) Monocytes # (Manual) Eosinophils # (Manual) PT INR Fibrinogen dRVVT Confirm Interp Factor V Activity POC ABG pH POC ABG pCO2 POC ABG pO2 ABG pO2 ABG HCO3 ABG Base Excess ABG Hemoglobin Oxyhemoglobin Sodium Potassium Chloride Carbon Dioxide BUN Creatinine Glucose POC Glucose 266 H 154 H Lactic Acid Calcium Phosphorus Magnesium Direct Bilirubin AST ALT Alkaline Phosphatase Lactate Dehydrogenase Troponin T C-Reactive Protein Total Protein Albumin Prealbumin Triglycerides Cholesterol LDL Cholesterol Direct HDL Cholesterol Urine pH Urine WBC (Auto) Urine Creatinine Urine Total Protein Fluid Total Protein Vancomycin Trough Rheumatoid Factor Complement C4 Miscellaneous Test Crossmatch 09/15/16 09/15/16 09/15/16 05:00 05:17 12:45 WBC RBC Hgb Hct MCV MCH MCHC RDW Plt Count Lymph % (Auto) [place] % (Auto) Lymph # [place] # Baso # Seg Neutrophils % Seg Neuts % (Manual) Lymphocytes % (Manual) Monocytes % (Manual) Eosinophils % (Manual) Basophils % (Manual) Nucleated RBC % Seg Neutrophils # Seg Neutrophils # Man Lymphocytes # (Manual) Monocytes # (Manual) Eosinophils # (Manual) PT INR Fibrinogen dRVVT Confirm Interp Factor V Activity POC ABG pH POC ABG pCO2 POC ABG pO2 ABG pO2 ABG HCO3 ABG Base Excess ABG Hemoglobin Oxyhemoglobin Sodium Potassium 5.2 H Chloride Carbon Dioxide 18 L BUN 139 H Creatinine 3.7 H Glucose 227 H POC Glucose 226 H 244 H Lactic Acid Calcium 8.3 L Phosphorus Magnesium Direct Bilirubin AST ALT Alkaline Phosphatase Lactate Dehydrogenase Troponin T C-Reactive Protein Total Protein Albumin Prealbumin Triglycerides Cholesterol LDL Cholesterol Direct HDL Cholesterol Urine pH Urine WBC (Auto) Urine Creatinine Urine Total Protein Fluid Total Protein Vancomycin Trough Rheumatoid Factor Complement C4 Miscellaneous Test Crossmatch 09/15/16 09/15/16 09/15/16 14:32 17:33 23:35 WBC RBC Hgb Hct MCV MCH MCHC RDW Plt Count Lymph % (Auto) [place] % (Auto) Lymph # [place] # Baso # Seg Neutrophils % Seg Neuts % (Manual) Lymphocytes % (Manual) Monocytes % (Manual) Eosinophils % (Manual) Basophils % (Manual) Nucleated RBC % Seg Neutrophils # Seg Neutrophils # Man Lymphocytes # (Manual) Monocytes # (Manual) Eosinophils # (Manual) PT INR Fibrinogen dRVVT Confirm Interp Factor V Activity POC ABG pH POC ABG pCO2 27.7 L POC ABG pO2 120 H ABG pO2 ABG HCO3 ABG Base Excess ABG Hemoglobin Oxyhemoglobin Sodium Potassium Chloride Carbon Dioxide BUN Creatinine Glucose POC Glucose 232 H 167 H Lactic Acid Calcium Phosphorus Magnesium Direct Bilirubin AST ALT Alkaline Phosphatase Lactate Dehydrogenase Troponin T C-Reactive Protein Total Protein Albumin Prealbumin Triglycerides Cholesterol LDL Cholesterol Direct HDL Cholesterol Urine pH Urine WBC (Auto) Urine Creatinine Urine Total Protein Fluid Total Protein Vancomycin Trough Rheumatoid Factor Complement C4 Miscellaneous Test Crossmatch 09/16/16 09/16/16 09/16/16 03:58 10:27 10:27 WBC 19.0 H RBC 2.77 L Hgb 6.5 L Hct 20.9 L MCV 76 L MCH 23 L MCHC RDW 19.3 H Plt Count Lymph % (Auto) 11.0 L [place] % (Auto) Lymph # [place] # 1.1 H Baso # Seg Neutrophils % 82.5 H Seg Neuts % (Manual) Lymphocytes % (Manual) Monocytes % (Manual) Eosinophils % (Manual) Basophils % (Manual) Nucleated RBC % Seg Neutrophils # 15.7 H Seg Neutrophils # Man Lymphocytes # (Manual) Monocytes # (Manual) Eosinophils # (Manual) PT INR Fibrinogen dRVVT Confirm Interp Factor V Activity POC ABG pH POC ABG pCO2 POC ABG pO2 ABG pO2 ABG HCO3 ABG Base Excess ABG Hemoglobin Oxyhemoglobin Sodium Potassium Chloride 109.3 H Carbon Dioxide 18 L BUN 139 H Creatinine 4.1 H Glucose 144 H POC Glucose 146 H Lactic Acid Calcium 8.1 L Phosphorus Magnesium Direct Bilirubin AST ALT Alkaline Phosphatase Lactate Dehydrogenase Troponin T C-Reactive Protein Total Protein Albumin Prealbumin Triglycerides Cholesterol LDL Cholesterol Direct HDL Cholesterol Urine pH Urine WBC (Auto) Urine Creatinine Urine Total Protein Fluid Total Protein Vancomycin Trough Rheumatoid Factor Complement C4 Miscellaneous Test Crossmatch 09/16/16 09/16/16 09/16/16 12:04 12:10 13:55 WBC RBC Hgb Hct MCV MCH MCHC RDW Plt Count Lymph % (Auto) [place] % (Auto) Lymph # [place] # Baso # Seg Neutrophils % Seg Neuts % (Manual) Lymphocytes % (Manual) Monocytes % (Manual) Eosinophils % (Manual) Basophils % (Manual) Nucleated RBC % Seg Neutrophils # Seg Neutrophils # Man Lymphocytes # (Manual) Monocytes # (Manual) Eosinophils # (Manual) PT INR Fibrinogen dRVVT Confirm Interp Factor V Activity POC ABG pH POC ABG pCO2 32.9 L POC ABG pO2 ABG pO2 ABG HCO3 ABG Base Excess ABG Hemoglobin Oxyhemoglobin Sodium Potassium Chloride Carbon Dioxide BUN Creatinine Glucose POC Glucose 185 H Lactic Acid Calcium Phosphorus Magnesium Direct Bilirubin AST ALT Alkaline Phosphatase Lactate Dehydrogenase Troponin T C-Reactive Protein Total Protein Albumin Prealbumin Triglycerides Cholesterol LDL Cholesterol Direct HDL Cholesterol Urine pH Urine WBC (Auto) Urine Creatinine Urine Total Protein Fluid Total Protein Vancomycin Trough Rheumatoid Factor Complement C4 Miscellaneous Test Crossmatch See Detail 09/16/16 09/16/16 09/16/16 17:55 19:19 23:48 WBC RBC Hgb Hct MCV MCH MCHC RDW Plt Count Lymph % (Auto) [place] % (Auto) Lymph # [place] # Baso # Seg Neutrophils % Seg Neuts % (Manual) Lymphocytes % (Manual) Monocytes % (Manual) Eosinophils % (Manual) Basophils % (Manual) Nucleated RBC % Seg Neutrophils # Seg Neutrophils # Man Lymphocytes # (Manual) Monocytes # (Manual) Eosinophils # (Manual) PT INR Fibrinogen dRVVT Confirm Interp Factor V Activity POC ABG pH POC ABG pCO2 POC ABG pO2 ABG pO2 ABG HCO3 ABG Base Excess ABG Hemoglobin Oxyhemoglobin Sodium Potassium Chloride Carbon Dioxide BUN Creatinine Glucose POC Glucose 222 H 107 H Lactic Acid Calcium Phosphorus Magnesium Direct Bilirubin AST ALT Alkaline Phosphatase Lactate Dehydrogenase Troponin T C-Reactive Protein Total Protein Albumin Prealbumin Triglycerides Cholesterol LDL Cholesterol Direct HDL Cholesterol Urine pH Urine WBC (Auto) Urine Creatinine 47.4 H Urine Total Protein 16 H Fluid Total Protein Vancomycin Trough Rheumatoid Factor Complement C4 Miscellaneous Test Crossmatch 09/17/16 09/17/16 09/17/16 03:45 03:45 04:55 WBC 19.6 H RBC 3.41 L Hgb 8.5 L Hct 26.7 L MCV 78 L MCH 25 L MCHC RDW 19.9 H Plt Count Lymph % (Auto) 9.3 L [place] % (Auto) Lymph # [place] # 1.2 H Baso # Seg Neutrophils % 83.9 H Seg Neuts % (Manual) Lymphocytes % (Manual) Monocytes % (Manual) Eosinophils % (Manual) Basophils % (Manual) Nucleated RBC % Seg Neutrophils # 16.4 H Seg Neutrophils # Man Lymphocytes # (Manual) Monocytes # (Manual) Eosinophils # (Manual) PT INR Fibrinogen dRVVT Confirm Interp Factor V Activity POC ABG pH POC ABG pCO2 POC ABG pO2 ABG pO2 ABG HCO3 ABG Base Excess ABG Hemoglobin Oxyhemoglobin Sodium 146 H Potassium 5.1 H Chloride 110.9 H Carbon Dioxide 16 L BUN 146 H Creatinine 4.0 H Glucose 108 H POC Glucose 133 H Lactic Acid Calcium Phosphorus Magnesium 3.00 H Direct Bilirubin AST ALT Alkaline Phosphatase Lactate Dehydrogenase Troponin T C-Reactive Protein Total Protein Albumin Prealbumin Triglycerides Cholesterol LDL Cholesterol Direct HDL Cholesterol Urine pH Urine WBC (Auto) Urine Creatinine Urine Total Protein Fluid Total Protein Vancomycin Trough Rheumatoid Factor Complement C4 Miscellaneous Test Crossmatch 09/17/16 09/17/16 09/17/16 11:15 17:33 23:47 WBC RBC Hgb Hct MCV MCH MCHC RDW Plt Count Lymph % (Auto) [place] % (Auto) Lymph # [place] # Baso # Seg Neutrophils % Seg Neuts % (Manual) Lymphocytes % (Manual) Monocytes % (Manual) Eosinophils % (Manual) Basophils % (Manual) Nucleated RBC % Seg Neutrophils # Seg Neutrophils # Man Lymphocytes # (Manual) Monocytes # (Manual) Eosinophils # (Manual) PT INR Fibrinogen dRVVT Confirm Interp Factor V Activity POC ABG pH POC ABG pCO2 POC ABG pO2 ABG pO2 ABG HCO3 ABG Base Excess ABG Hemoglobin Oxyhemoglobin Sodium Potassium Chloride Carbon Dioxide BUN Creatinine Glucose POC Glucose 176 H 246 H 148 H Lactic Acid Calcium Phosphorus Magnesium Direct Bilirubin AST ALT Alkaline Phosphatase Lactate Dehydrogenase Troponin T C-Reactive Protein Total Protein Albumin Prealbumin Triglycerides Cholesterol LDL Cholesterol Direct HDL Cholesterol Urine pH Urine WBC (Auto) Urine Creatinine Urine Total Protein Fluid Total Protein Vancomycin Trough Rheumatoid Factor Complement C4 Miscellaneous Test Crossmatch 09/18/16 09/18/16 09/18/16 05:33 08:31 08:31 WBC 18.0 H RBC 3.17 L Hgb 9.0 L Hct 25.7 L MCV MCH MCHC 35 H RDW 20.4 H Plt Count Lymph % (Auto) [place] % (Auto) Lymph # [place] # Baso # Seg Neutrophils % Seg Neuts % (Manual) Lymphocytes % (Manual) Monocytes % (Manual) Eosinophils % (Manual) Basophils % (Manual) Nucleated RBC % Seg Neutrophils # Seg Neutrophils # Man Lymphocytes # (Manual) Monocytes # (Manual) Eosinophils # (Manual) PT INR Fibrinogen dRVVT Confirm Interp Factor V Activity POC ABG pH POC ABG pCO2 POC ABG pO2 ABG pO2 ABG HCO3 ABG Base Excess ABG Hemoglobin Oxyhemoglobin Sodium Potassium Chloride Carbon Dioxide 15 L BUN 124 H Creatinine 3.8 H Glucose POC Glucose 120 H Lactic Acid Calcium 8.1 L Phosphorus Magnesium Direct Bilirubin AST ALT Alkaline Phosphatase Lactate Dehydrogenase Troponin T C-Reactive Protein Total Protein Albumin Prealbumin Triglycerides Cholesterol LDL Cholesterol Direct HDL Cholesterol Urine pH Urine WBC (Auto) Urine Creatinine Urine Total Protein Fluid Total Protein Vancomycin Trough Rheumatoid Factor Complement C4 Miscellaneous Test Crossmatch 09/18/16 09/18/16 09/18/16 12:03 15:34 17:50 WBC RBC Hgb Hct MCV MCH MCHC RDW Plt Count Lymph % (Auto) [place] % (Auto) Lymph # [place] # Baso # Seg Neutrophils % Seg Neuts % (Manual) Lymphocytes % (Manual) Monocytes % (Manual) Eosinophils % (Manual) Basophils % (Manual) Nucleated RBC % Seg Neutrophils # Seg Neutrophils # Man Lymphocytes # (Manual) Monocytes # (Manual) Eosinophils # (Manual) PT INR Fibrinogen dRVVT Confirm Interp Factor V Activity POC ABG pH POC ABG pCO2 25.7 L POC ABG pO2 66 L ABG pO2 ABG HCO3 ABG Base Excess ABG Hemoglobin Oxyhemoglobin Sodium Potassium Chloride Carbon Dioxide BUN Creatinine Glucose POC Glucose 156 H 220 H Lactic Acid Calcium Phosphorus Magnesium Direct Bilirubin AST ALT Alkaline Phosphatase Lactate Dehydrogenase Troponin T C-Reactive Protein Total Protein Albumin Prealbumin Triglycerides Cholesterol LDL Cholesterol Direct HDL Cholesterol Urine pH Urine WBC (Auto) Urine Creatinine Urine Total Protein Fluid Total Protein Vancomycin Trough Rheumatoid Factor Complement C4 Miscellaneous Test Crossmatch 09/19/16 09/19/16 09/19/16 06:21 09:50 09:50 WBC 17.1 H RBC 3.49 L Hgb 9.0 L Hct 28.1 L MCV MCH 26 L MCHC RDW 20.8 H Plt Count Lymph % (Auto) 11.5 L [place] % (Auto) 7.5 H Lymph # [place] # 1.3 H Baso # Seg Neutrophils % 79.8 H Seg Neuts % (Manual) Lymphocytes % (Manual) Monocytes % (Manual) Eosinophils % (Manual) Basophils % (Manual) Nucleated RBC % Seg Neutrophils # 13.7 H Seg Neutrophils # Man Lymphocytes # (Manual) Monocytes # (Manual) Eosinophils # (Manual) PT INR Fibrinogen dRVVT Confirm Interp Factor V Activity POC ABG pH POC ABG pCO2 POC ABG pO2 ABG pO2 ABG HCO3 ABG Base Excess ABG Hemoglobin Oxyhemoglobin Sodium Potassium Chloride 108.6 H Carbon Dioxide 15 L BUN 125 H Creatinine 4.1 H Glucose 124 H POC Glucose 119 H Lactic Acid Calcium Phosphorus Magnesium Direct Bilirubin AST ALT Alkaline Phosphatase Lactate Dehydrogenase Troponin T C-Reactive Protein Total Protein Albumin Prealbumin Triglycerides Cholesterol LDL Cholesterol Direct HDL Cholesterol Urine pH Urine WBC (Auto) Urine Creatinine Urine Total Protein Fluid Total Protein Vancomycin Trough Rheumatoid Factor Complement C4 Miscellaneous Test Crossmatch 09/19/16 09/19/16 09/19/16 11:25 17:53 23:36 WBC RBC Hgb Hct MCV MCH MCHC RDW Plt Count Lymph % (Auto) [place] % (Auto) Lymph # [place] # Baso # Seg Neutrophils % Seg Neuts % (Manual) Lymphocytes % (Manual) Monocytes % (Manual) Eosinophils % (Manual) Basophils % (Manual) Nucleated RBC % Seg Neutrophils # Seg Neutrophils # Man Lymphocytes # (Manual) Monocytes # (Manual) Eosinophils # (Manual) PT INR Fibrinogen dRVVT Confirm Interp Factor V Activity POC ABG pH POC ABG pCO2 POC ABG pO2 ABG pO2 ABG HCO3 ABG Base Excess ABG Hemoglobin Oxyhemoglobin Sodium Potassium Chloride Carbon Dioxide BUN Creatinine Glucose POC Glucose 160 H 245 H 121 H Lactic Acid Calcium Phosphorus Magnesium Direct Bilirubin AST ALT Alkaline Phosphatase Lactate Dehydrogenase Troponin T C-Reactive Protein Total Protein Albumin Prealbumin Triglycerides Cholesterol LDL Cholesterol Direct HDL Cholesterol Urine pH Urine WBC (Auto) Urine Creatinine Urine Total Protein Fluid Total Protein Vancomycin Trough Rheumatoid Factor Complement C4 Miscellaneous Test Crossmatch 09/20/16 09/20/16 09/20/16 04:10 04:10 04:10 WBC 17.0 H RBC 3.21 L Hgb 8.2 L Hct 25.5 L MCV MCH 26 L MCHC RDW 20.9 H Plt Count Lymph % (Auto) [place] % (Auto) Lymph # [place] # Baso # Seg Neutrophils % Seg Neuts % (Manual) Lymphocytes % (Manual) Monocytes % (Manual) Eosinophils % (Manual) Basophils % (Manual) Nucleated RBC % Seg Neutrophils # Seg Neutrophils # Man Lymphocytes # (Manual) Monocytes # (Manual) Eosinophils # (Manual) PT INR Fibrinogen dRVVT Confirm Interp Factor V Activity POC ABG pH POC ABG pCO2 POC ABG pO2 ABG pO2 ABG HCO3 ABG Base Excess ABG Hemoglobin Oxyhemoglobin Sodium Potassium Chloride 111.0 H Carbon Dioxide 16 L BUN 129 H Creatinine 3.7 H Glucose 115 H POC Glucose Lactic Acid Calcium 8.2 L Phosphorus Magnesium Direct Bilirubin AST ALT Alkaline Phosphatase Lactate Dehydrogenase Troponin T C-Reactive Protein Total Protein Albumin Prealbumin Triglycerides 243 H Cholesterol LDL Cholesterol Direct HDL Cholesterol Urine pH Urine WBC (Auto) Urine Creatinine Urine Total Protein Fluid Total Protein Vancomycin Trough Rheumatoid Factor Complement C4 Miscellaneous Test Crossmatch 09/20/16 09/20/16 09/20/16 05:40 11:52 16:50 WBC RBC Hgb Hct MCV MCH MCHC RDW Plt Count Lymph % (Auto) [place] % (Auto) Lymph # [place] # Baso # Seg Neutrophils % Seg Neuts % (Manual) Lymphocytes % (Manual) Monocytes % (Manual) Eosinophils % (Manual) Basophils % (Manual) Nucleated RBC % Seg Neutrophils # Seg Neutrophils # Man Lymphocytes # (Manual) Monocytes # (Manual) Eosinophils # (Manual) PT INR Fibrinogen dRVVT Confirm Interp Factor V Activity POC ABG pH POC ABG pCO2 POC ABG pO2 ABG pO2 ABG HCO3 ABG Base Excess ABG Hemoglobin Oxyhemoglobin Sodium Potassium Chloride Carbon Dioxide BUN Creatinine Glucose POC Glucose 131 H 183 H 236 H Lactic Acid Calcium Phosphorus Magnesium Direct Bilirubin AST ALT Alkaline Phosphatase Lactate Dehydrogenase Troponin T C-Reactive Protein Total Protein Albumin Prealbumin Triglycerides Cholesterol LDL Cholesterol Direct HDL Cholesterol Urine pH Urine WBC (Auto) Urine Creatinine Urine Total Protein Fluid Total Protein Vancomycin Trough Rheumatoid Factor Complement C4 Miscellaneous Test Crossmatch 09/20/16 09/21/16 09/21/16 23:51 03:30 04:44 WBC RBC Hgb Hct MCV MCH MCHC RDW Plt Count Lymph % (Auto) [place] % (Auto) Lymph # [place] # Baso # Seg Neutrophils % Seg Neuts % (Manual) Lymphocytes % (Manual) Monocytes % (Manual) Eosinophils % (Manual) Basophils % (Manual) Nucleated RBC % Seg Neutrophils # Seg Neutrophils # Man Lymphocytes # (Manual) Monocytes # (Manual) Eosinophils # (Manual) PT INR Fibrinogen dRVVT Confirm Interp Factor V Activity POC ABG pH POC ABG pCO2 POC ABG pO2 ABG pO2 ABG HCO3 ABG Base Excess ABG Hemoglobin Oxyhemoglobin Sodium Potassium Chloride Carbon Dioxide BUN Creatinine Glucose POC Glucose 114 H 141 H Lactic Acid Calcium Phosphorus Magnesium 2.70 H Direct Bilirubin AST ALT Alkaline Phosphatase Lactate Dehydrogenase Troponin T C-Reactive Protein Total Protein Albumin Prealbumin Triglycerides Cholesterol LDL Cholesterol Direct HDL Cholesterol Urine pH Urine WBC (Auto) Urine Creatinine Urine Total Protein Fluid Total Protein Vancomycin Trough Rheumatoid Factor Complement C4 Miscellaneous Test Crossmatch 09/21/16 09/21/16 09/21/16 07:45 07:45 10:01 WBC 13.8 H RBC 2.94 L Hgb 7.5 L Hct 23.5 L MCV MCH 26 L MCHC RDW 21.2 H Plt Count Lymph % (Auto) 6.9 L [place] % (Auto) 9.4 H Lymph # 0.9 L [place] # 1.3 H Baso # Seg Neutrophils % 83.2 H Seg Neuts % (Manual) Lymphocytes % (Manual) Monocytes % (Manual) Eosinophils % (Manual) Basophils % (Manual) Nucleated RBC % Seg Neutrophils # 11.5 H Seg Neutrophils # Man Lymphocytes # (Manual) Monocytes # (Manual) Eosinophils # (Manual) PT INR Fibrinogen dRVVT Confirm Interp Factor V Activity POC ABG pH 7.308 L POC ABG pCO2 31.9 L POC ABG pO2 148 H ABG pO2 ABG HCO3 ABG Base Excess ABG Hemoglobin Oxyhemoglobin Sodium 147 H Potassium Chloride 114.2 H Carbon Dioxide 15 L BUN 120 H Creatinine 3.9 H Glucose 156 H POC Glucose Lactic Acid Calcium 8.2 L Phosphorus Magnesium Direct Bilirubin AST ALT Alkaline Phosphatase Lactate Dehydrogenase Troponin T C-Reactive Protein Total Protein Albumin Prealbumin Triglycerides Cholesterol LDL Cholesterol Direct HDL Cholesterol Urine pH Urine WBC (Auto) Urine Creatinine Urine Total Protein Fluid Total Protein Vancomycin Trough Rheumatoid Factor Complement C4 Miscellaneous Test Crossmatch 09/21/16 09/21/16 09/21/16 12:00 12:03 13:00 WBC RBC Hgb Hct MCV MCH MCHC RDW Plt Count Lymph % (Auto) [place] % (Auto) Lymph # [place] # Baso # Seg Neutrophils % Seg Neuts % (Manual) Lymphocytes % (Manual) Monocytes % (Manual) Eosinophils % (Manual) Basophils % (Manual) Nucleated RBC % Seg Neutrophils # Seg Neutrophils # Man Lymphocytes # (Manual) Monocytes # (Manual) Eosinophils # (Manual) PT INR Fibrinogen dRVVT Confirm Interp Factor V Activity POC ABG pH POC ABG pCO2 POC ABG pO2 ABG pO2 ABG HCO3 ABG Base Excess ABG Hemoglobin Oxyhemoglobin Sodium Potassium Chloride Carbon Dioxide BUN Creatinine Glucose POC Glucose 163 H Lactic Acid Calcium Phosphorus Magnesium Direct Bilirubin AST ALT Alkaline Phosphatase Lactate Dehydrogenase Troponin T C-Reactive Protein Total Protein Albumin Prealbumin Triglycerides Cholesterol LDL Cholesterol Direct HDL Cholesterol Urine pH Urine WBC (Auto) Urine Creatinine 54.8 H Urine Total Protein Fluid Total Protein Vancomycin Trough 2.3 L Rheumatoid Factor Complement C4 Miscellaneous Test Crossmatch 09/21/16 09/21/16 09/22/16 16:51 23:17 06:27 WBC RBC Hgb Hct MCV MCH MCHC RDW Plt Count Lymph % (Auto) [place] % (Auto) Lymph # [place] # Baso # Seg Neutrophils % Seg Neuts % (Manual) Lymphocytes % (Manual) Monocytes % (Manual) Eosinophils % (Manual) Basophils % (Manual) Nucleated RBC % Seg Neutrophils # Seg Neutrophils # Man Lymphocytes # (Manual) Monocytes # (Manual) Eosinophils # (Manual) PT INR Fibrinogen dRVVT Confirm Interp Factor V Activity POC ABG pH POC ABG pCO2 POC ABG pO2 ABG pO2 ABG HCO3 ABG Base Excess ABG Hemoglobin Oxyhemoglobin Sodium Potassium Chloride Carbon Dioxide BUN Creatinine Glucose POC Glucose 206 H 114 H 115 H Lactic Acid Calcium Phosphorus Magnesium Direct Bilirubin AST ALT Alkaline Phosphatase Lactate Dehydrogenase Troponin T C-Reactive Protein Total Protein Albumin Prealbumin Triglycerides Cholesterol LDL Cholesterol Direct HDL Cholesterol Urine pH Urine WBC (Auto) Urine Creatinine Urine Total Protein Fluid Total Protein Vancomycin Trough Rheumatoid Factor Complement C4 Miscellaneous Test Crossmatch 09/22/16 09/22/16 09/22/16 07:50 07:50 12:00 WBC 17.8 H RBC 3.04 L Hgb 8.0 L Hct 24.7 L MCV MCH 26 L MCHC RDW 21.6 H Plt Count Lymph % (Auto) [place] % (Auto) Lymph # [place] # Baso # Seg Neutrophils % Seg Neuts % (Manual) Lymphocytes % (Manual) Monocytes % (Manual) Eosinophils % (Manual) Basophils % (Manual) Nucleated RBC % Seg Neutrophils # Seg Neutrophils # Man Lymphocytes # (Manual) Monocytes # (Manual) Eosinophils # (Manual) PT INR Fibrinogen dRVVT Confirm Interp Factor V Activity POC ABG pH POC ABG pCO2 POC ABG pO2 ABG pO2 ABG HCO3 ABG Base Excess ABG Hemoglobin Oxyhemoglobin Sodium 150 H Potassium Chloride 118.2 H Carbon Dioxide 14 L BUN 111 H Creatinine 3.7 H Glucose 157 H POC Glucose 183 H Lactic Acid Calcium Phosphorus Magnesium Direct Bilirubin AST ALT Alkaline Phosphatase Lactate Dehydrogenase Troponin T C-Reactive Protein Total Protein Albumin Prealbumin Triglycerides Cholesterol LDL Cholesterol Direct HDL Cholesterol Urine pH Urine WBC (Auto) Urine Creatinine Urine Total Protein Fluid Total Protein Vancomycin Trough Rheumatoid Factor Complement C4 Miscellaneous Test Crossmatch 09/22/16 09/22/16 09/23/16 17:29 23:10 05:00 WBC 19.2 H RBC 3.13 L Hgb 8.0 L Hct 25.2 L MCV MCH 26 L MCHC RDW 22.1 H Plt Count Lymph % (Auto) [place] % (Auto) Lymph # [place] # Baso # Seg Neutrophils % Seg Neuts % (Manual) 92.0 H Lymphocytes % (Manual) 3.0 L Monocytes % (Manual) Eosinophils % (Manual) Basophils % (Manual) Nucleated RBC % Seg Neutrophils # Seg Neutrophils # Man 17.7 H Lymphocytes # (Manual) 0.6 L Monocytes # (Manual) Eosinophils # (Manual) PT INR Fibrinogen dRVVT Confirm Interp Factor V Activity POC ABG pH POC ABG pCO2 POC ABG pO2 ABG pO2 ABG HCO3 ABG Base Excess ABG Hemoglobin Oxyhemoglobin Sodium Potassium Chloride Carbon Dioxide BUN Creatinine Glucose POC Glucose 197 H 169 H Lactic Acid Calcium Phosphorus Magnesium Direct Bilirubin AST ALT Alkaline Phosphatase Lactate Dehydrogenase Troponin T C-Reactive Protein Total Protein Albumin Prealbumin Triglycerides Cholesterol LDL Cholesterol Direct HDL Cholesterol Urine pH Urine WBC (Auto) Urine Creatinine Urine Total Protein Fluid Total Protein Vancomycin Trough Rheumatoid Factor Complement C4 Miscellaneous Test Crossmatch 09/23/16 09/23/16 09/23/16 05:00 05:00 05:10 WBC RBC Hgb Hct MCV MCH MCHC RDW Plt Count Lymph % (Auto) [place] % (Auto) Lymph # [place] # Baso # Seg Neutrophils % Seg Neuts % (Manual) Lymphocytes % (Manual) Monocytes % (Manual) Eosinophils % (Manual) Basophils % (Manual) Nucleated RBC % Seg Neutrophils # Seg Neutrophils # Man Lymphocytes # (Manual) Monocytes # (Manual) Eosinophils # (Manual) PT INR Fibrinogen dRVVT Confirm Interp Factor V Activity POC ABG pH POC ABG pCO2 POC ABG pO2 ABG pO2 ABG HCO3 ABG Base Excess ABG Hemoglobin Oxyhemoglobin Sodium 147 H Potassium 3.2 L Chloride 115.7 H Carbon Dioxide 13 L BUN 111 H Creatinine 3.8 H Glucose 194 H POC Glucose 188 H Lactic Acid Calcium 7.3 L D Phosphorus Magnesium Direct Bilirubin AST ALT Alkaline Phosphatase Lactate Dehydrogenase Troponin T C-Reactive Protein 3.20 H Total Protein Albumin Prealbumin Triglycerides Cholesterol LDL Cholesterol Direct HDL Cholesterol Urine pH Urine WBC (Auto) Urine Creatinine Urine Total Protein Fluid Total Protein Vancomycin Trough Rheumatoid Factor Complement C4 Miscellaneous Test Crossmatch 09/23/16 09/23/16 09/23/16 11:37 12:29 18:01 WBC RBC Hgb Hct MCV MCH MCHC RDW Plt Count Lymph % (Auto) [place] % (Auto) Lymph # [place] # Baso # Seg Neutrophils % Seg Neuts % (Manual) Lymphocytes % (Manual) Monocytes % (Manual) Eosinophils % (Manual) Basophils % (Manual) Nucleated RBC % Seg Neutrophils # Seg Neutrophils # Man Lymphocytes # (Manual) Monocytes # (Manual) Eosinophils # (Manual) PT INR Fibrinogen dRVVT Confirm Interp Factor V Activity POC ABG pH POC ABG pCO2 18.9 L POC ABG pO2 143 H ABG pO2 ABG HCO3 ABG Base Excess ABG Hemoglobin Oxyhemoglobin Sodium Potassium Chloride Carbon Dioxide BUN Creatinine Glucose POC Glucose 153 H 108 H Lactic Acid Calcium Phosphorus Magnesium Direct Bilirubin AST ALT Alkaline Phosphatase Lactate Dehydrogenase Troponin T C-Reactive Protein Total Protein Albumin Prealbumin Triglycerides Cholesterol LDL Cholesterol Direct HDL Cholesterol Urine pH Urine WBC (Auto) Urine Creatinine Urine Total Protein Fluid Total Protein Vancomycin Trough Rheumatoid Factor Complement C4 Miscellaneous Test Crossmatch 09/23/16 09/23/16 09/24/16 21:19 23:43 05:16 WBC RBC Hgb Hct MCV MCH MCHC RDW Plt Count Lymph % (Auto) [place] % (Auto) Lymph # [place] # Baso # Seg Neutrophils % Seg Neuts % (Manual) Lymphocytes % (Manual) Monocytes % (Manual) Eosinophils % (Manual) Basophils % (Manual) Nucleated RBC % Seg Neutrophils # Seg Neutrophils # Man Lymphocytes # (Manual) Monocytes # (Manual) Eosinophils # (Manual) PT INR Fibrinogen dRVVT Confirm Interp Factor V Activity POC ABG pH POC ABG pCO2 17.3 L POC ABG pO2 112 H ABG pO2 ABG HCO3 ABG Base Excess ABG Hemoglobin Oxyhemoglobin Sodium Potassium Chloride Carbon Dioxide BUN Creatinine Glucose POC Glucose 143 H 164 H Lactic Acid Calcium Phosphorus Magnesium Direct Bilirubin AST ALT Alkaline Phosphatase Lactate Dehydrogenase Troponin T C-Reactive Protein Total Protein Albumin Prealbumin Triglycerides Cholesterol LDL Cholesterol Direct HDL Cholesterol Urine pH Urine WBC (Auto) Urine Creatinine Urine Total Protein Fluid Total Protein Vancomycin Trough Rheumatoid Factor Complement C4 Miscellaneous Test Crossmatch 09/24/16 09/24/16 09/24/16 05:21 11:58 17:06 WBC RBC Hgb Hct MCV MCH MCHC RDW Plt Count Lymph % (Auto) [place] % (Auto) Lymph # [place] # Baso # Seg Neutrophils % Seg Neuts % (Manual) Lymphocytes % (Manual) Monocytes % (Manual) Eosinophils % (Manual) Basophils % (Manual) Nucleated RBC % Seg Neutrophils # Seg Neutrophils # Man Lymphocytes # (Manual) Monocytes # (Manual) Eosinophils # (Manual) PT INR Fibrinogen dRVVT Confirm Interp Factor V Activity POC ABG pH POC ABG pCO2 POC ABG pO2 ABG pO2 ABG HCO3 ABG Base Excess ABG Hemoglobin Oxyhemoglobin Sodium Potassium Chloride Carbon Dioxide 10 L BUN 103 H Creatinine 4.3 H Glucose 163 H POC Glucose 173 H 167 H Lactic Acid Calcium 6.5 L Phosphorus Magnesium Direct Bilirubin AST ALT Alkaline Phosphatase Lactate Dehydrogenase Troponin T C-Reactive Protein Total Protein Albumin Prealbumin Triglycerides Cholesterol LDL Cholesterol Direct HDL Cholesterol Urine pH Urine WBC (Auto) Urine Creatinine Urine Total Protein Fluid Total Protein Vancomycin Trough Rheumatoid Factor Complement C4 Miscellaneous Test Crossmatch 09/24/16 09/24/16 09/24/16 20:15 21:02 23:48 WBC RBC Hgb Hct MCV MCH MCHC RDW Plt Count Lymph % (Auto) [place] % (Auto) Lymph # [place] # Baso # Seg Neutrophils % Seg Neuts % (Manual) Lymphocytes % (Manual) Monocytes % (Manual) Eosinophils % (Manual) Basophils % (Manual) Nucleated RBC % Seg Neutrophils # Seg Neutrophils # Man Lymphocytes # (Manual) Monocytes # (Manual) Eosinophils # (Manual) PT INR Fibrinogen dRVVT Confirm Interp Factor V Activity POC ABG pH 7.288 L POC ABG pCO2 30.2 L 21.5 L POC ABG pO2 32 L 39 L ABG pO2 ABG HCO3 ABG Base Excess ABG Hemoglobin Oxyhemoglobin Sodium Potassium Chloride Carbon Dioxide BUN Creatinine Glucose POC Glucose 109 H Lactic Acid Calcium Phosphorus Magnesium Direct Bilirubin AST ALT Alkaline Phosphatase Lactate Dehydrogenase Troponin T C-Reactive Protein Total Protein Albumin Prealbumin Triglycerides Cholesterol LDL Cholesterol Direct HDL Cholesterol Urine pH Urine WBC (Auto) Urine Creatinine Urine Total Protein Fluid Total Protein Vancomycin Trough Rheumatoid Factor Complement C4 Miscellaneous Test Crossmatch 09/25/16 09/25/16 09/25/16 04:20 04:20 04:20 WBC RBC 2.58 L Hgb 7.0 L Hct 21.0 L MCV MCH 27 L MCHC RDW 23.8 H Plt Count Lymph % (Auto) [place] % (Auto) Lymph # [place] # Baso # Seg Neutrophils % Seg Neuts % (Manual) Lymphocytes % (Manual) 12.0 L Monocytes % (Manual) Eosinophils % (Manual) 7.0 H Basophils % (Manual) 2.0 H Nucleated RBC % Seg Neutrophils # Seg Neutrophils # Man Lymphocytes # (Manual) 0.9 L Monocytes # (Manual) Eosinophils # (Manual) 0.5 H PT INR Fibrinogen dRVVT Confirm Interp Factor V Activity POC ABG pH POC ABG pCO2 POC ABG pO2 ABG pO2 ABG HCO3 ABG Base Excess ABG Hemoglobin Oxyhemoglobin Sodium Potassium Chloride Carbon Dioxide 15 L BUN 72 H Creatinine 3.8 H Glucose POC Glucose Lactic Acid Calcium 6.0 L Phosphorus 4.60 H Magnesium 1.60 L Direct Bilirubin AST ALT Alkaline Phosphatase Lactate Dehydrogenase Troponin T C-Reactive Protein Total Protein Albumin Prealbumin Triglycerides Cholesterol LDL Cholesterol Direct HDL Cholesterol Urine pH Urine WBC (Auto) Urine Creatinine Urine Total Protein Fluid Total Protein Vancomycin Trough Rheumatoid Factor Complement C4 Miscellaneous Test Crossmatch 09/25/16 09/25/16 09/25/16 04:57 08:02 10:30 WBC RBC Hgb Hct MCV MCH MCHC RDW Plt Count Lymph % (Auto) [place] % (Auto) Lymph # [place] # Baso # Seg Neutrophils % Seg Neuts % (Manual) Lymphocytes % (Manual) Monocytes % (Manual) Eosinophils % (Manual) Basophils % (Manual) Nucleated RBC % Seg Neutrophils # Seg Neutrophils # Man Lymphocytes # (Manual) Monocytes # (Manual) Eosinophils # (Manual) PT INR Fibrinogen dRVVT Confirm Interp Factor V Activity POC ABG pH POC ABG pCO2 24.7 L POC ABG pO2 152 H ABG pO2 ABG HCO3 ABG Base Excess ABG Hemoglobin Oxyhemoglobin Sodium Potassium Chloride Carbon Dioxide BUN Creatinine Glucose POC Glucose 113 H Lactic Acid Calcium Phosphorus Magnesium Direct Bilirubin AST ALT Alkaline Phosphatase Lactate Dehydrogenase Troponin T C-Reactive Protein Total Protein Albumin Prealbumin Triglycerides Cholesterol LDL Cholesterol Direct HDL Cholesterol Urine pH Urine WBC (Auto) Urine Creatinine Urine Total Protein Fluid Total Protein Vancomycin Trough Rheumatoid Factor Complement C4 Miscellaneous Test Crossmatch See Detail 09/25/16 09/25/16 09/25/16 12:05 17:44 23:47 WBC RBC Hgb Hct MCV MCH MCHC RDW Plt Count Lymph % (Auto) [place] % (Auto) Lymph # [place] # Baso # Seg Neutrophils % Seg Neuts % (Manual) Lymphocytes % (Manual) Monocytes % (Manual) Eosinophils % (Manual) Basophils % (Manual) Nucleated RBC % Seg Neutrophils # Seg Neutrophils # Man Lymphocytes # (Manual) Monocytes # (Manual) Eosinophils # (Manual) PT INR Fibrinogen dRVVT Confirm Interp Factor V Activity POC ABG pH POC ABG pCO2 POC ABG pO2 ABG pO2 ABG HCO3 ABG Base Excess ABG Hemoglobin Oxyhemoglobin Sodium Potassium Chloride Carbon Dioxide BUN Creatinine Glucose POC Glucose 117 H 119 H 150 H Lactic Acid Calcium Phosphorus Magnesium Direct Bilirubin AST ALT Alkaline Phosphatase Lactate Dehydrogenase Troponin T C-Reactive Protein Total Protein Albumin Prealbumin Triglycerides Cholesterol LDL Cholesterol Direct HDL Cholesterol Urine pH Urine WBC (Auto) Urine Creatinine Urine Total Protein Fluid Total Protein Vancomycin Trough Rheumatoid Factor Complement C4 Miscellaneous Test Crossmatch 09/26/16 09/26/16 09/26/16 04:25 04:25 04:25 WBC RBC 2.65 L Hgb 7.4 L Hct 21.6 L MCV MCH MCHC RDW 22.5 H Plt Count Lymph % (Auto) [place] % (Auto) Lymph # [place] # Baso # Seg Neutrophils % Seg Neuts % (Manual) Lymphocytes % (Manual) 6.0 L Monocytes % (Manual) Eosinophils % (Manual) 11.0 H Basophils % (Manual) Nucleated RBC % Seg Neutrophils # Seg Neutrophils # Man Lymphocytes # (Manual) 0.4 L Monocytes # (Manual) Eosinophils # (Manual) 0.6 H PT INR Fibrinogen dRVVT Confirm Interp Factor V Activity POC ABG pH POC ABG pCO2 POC ABG pO2 ABG pO2 ABG HCO3 ABG Base Excess ABG Hemoglobin Oxyhemoglobin Sodium Potassium Chloride 97.0 L Carbon Dioxide 19 L BUN 43 H Creatinine 2.6 H Glucose 130 H POC Glucose Lactic Acid 4.40 H* Calcium 6.7 L Phosphorus Magnesium Direct Bilirubin AST ALT Alkaline Phosphatase Lactate Dehydrogenase Troponin T C-Reactive Protein Total Protein Albumin Prealbumin Triglycerides Cholesterol LDL Cholesterol Direct HDL Cholesterol Urine pH Urine WBC (Auto) Urine Creatinine Urine Total Protein Fluid Total Protein Vancomycin Trough Rheumatoid Factor Complement C4 Miscellaneous Test Crossmatch 09/26/16 09/26/16 09/26/16 05:20 11:44 12:12 WBC RBC Hgb Hct MCV MCH MCHC RDW Plt Count Lymph % (Auto) [place] % (Auto) Lymph # [place] # Baso # Seg Neutrophils % Seg Neuts % (Manual) Lymphocytes % (Manual) Monocytes % (Manual) Eosinophils % (Manual) Basophils % (Manual) Nucleated RBC % Seg Neutrophils # Seg Neutrophils # Man Lymphocytes # (Manual) Monocytes # (Manual) Eosinophils # (Manual) PT INR Fibrinogen dRVVT Confirm Interp Factor V Activity POC ABG pH POC ABG pCO2 27.0 L POC ABG pO2 69 L ABG pO2 ABG HCO3 ABG Base Excess ABG Hemoglobin Oxyhemoglobin Sodium Potassium Chloride Carbon Dioxide BUN Creatinine Glucose POC Glucose 121 H 128 H Lactic Acid Calcium Phosphorus Magnesium Direct Bilirubin AST ALT Alkaline Phosphatase Lactate Dehydrogenase Troponin T C-Reactive Protein Total Protein Albumin Prealbumin Triglycerides Cholesterol LDL Cholesterol Direct HDL Cholesterol Urine pH Urine WBC (Auto) Urine Creatinine Urine Total Protein Fluid Total Protein Vancomycin Trough Rheumatoid Factor Complement C4 Miscellaneous Test Crossmatch 09/26/16 09/26/16 09/27/16 18:31 23:40 08:20 WBC RBC Hgb Hct MCV MCH MCHC RDW Plt Count Lymph % (Auto) [place] % (Auto) Lymph # [place] # Baso # Seg Neutrophils % Seg Neuts % (Manual) Lymphocytes % (Manual) Monocytes % (Manual) Eosinophils % (Manual) Basophils % (Manual) Nucleated RBC % Seg Neutrophils # Seg Neutrophils # Man Lymphocytes # (Manual) Monocytes # (Manual) Eosinophils # (Manual) PT INR Fibrinogen dRVVT Confirm Interp Factor V Activity POC ABG pH POC ABG pCO2 POC ABG pO2 ABG pO2 ABG HCO3 ABG Base Excess ABG Hemoglobin Oxyhemoglobin Sodium Potassium Chloride Carbon Dioxide BUN Creatinine Glucose POC Glucose 120 H 133 H Lactic Acid 4.10 H* Calcium Phosphorus Magnesium Direct Bilirubin AST ALT Alkaline Phosphatase Lactate Dehydrogenase Troponin T C-Reactive Protein Total Protein Albumin Prealbumin Triglycerides Cholesterol LDL Cholesterol Direct HDL Cholesterol Urine pH Urine WBC (Auto) Urine Creatinine Urine Total Protein Fluid Total Protein Vancomycin Trough Rheumatoid Factor Complement C4 Miscellaneous Test Crossmatch 09/27/16 09/27/16 09/27/16 11:23 15:00 18:15 WBC RBC Hgb Hct MCV MCH MCHC RDW Plt Count Lymph % (Auto) [place] % (Auto) Lymph # [place] # [place] # Seg Neutrophils % Seg Neuts % (Manual) Lymphocytes % (Manual) Monocytes % (Manual) Eosinophils % (Manual) Basophils % (Manual) Nucleated RBC % Seg Neutrophils # Seg Neutrophils # Man Lymphocytes # (Manual) Monocytes # (Manual) Eosinophils # (Manual) PT INR Fibrinogen dRVVT Confirm Interp Factor V Activity POC ABG pH 7.459 H POC ABG pCO2 27.1 L POC ABG pO2 140 H ABG pO2 ABG HCO3 ABG Base Excess ABG Hemoglobin Oxyhemoglobin Sodium Potassium Chloride Carbon Dioxide BUN Creatinine Glucose POC Glucose 114 H 127 H Lactic Acid Calcium Phosphorus Magnesium Direct Bilirubin AST ALT Alkaline Phosphatase Lactate Dehydrogenase Troponin T C-Reactive Protein Total Protein Albumin Prealbumin Triglycerides Cholesterol LDL Cholesterol Direct HDL Cholesterol Urine pH Urine WBC (Auto) Urine Creatinine Urine Total Protein Fluid Total Protein Vancomycin Trough Rheumatoid Factor Complement C4 Miscellaneous Test Crossmatch 09/27/16 09/27/16 09/28/16 Unknown Unknown 03:45 WBC RBC 2.49 L Hgb 6.8 L Hct 20.7 L MCV MCH 27 L MCHC RDW 22.1 H Plt Count Lymph % (Auto) [place] % (Auto) Lymph # [place] # Baso # Seg Neutrophils % Seg Neuts % (Manual) 32.0 L Lymphocytes % (Manual) 12.0 L Monocytes % (Manual) 11.0 H Eosinophils % (Manual) 10.0 H Basophils % (Manual) Nucleated RBC % Seg Neutrophils # Seg Neutrophils # Man Lymphocytes # (Manual) 1.0 L Monocytes # (Manual) 0.9 H Eosinophils # (Manual) 0.8 H PT INR Fibrinogen dRVVT Confirm Interp Factor V Activity POC ABG pH POC ABG pCO2 POC ABG pO2 ABG pO2 ABG HCO3 ABG Base Excess ABG Hemoglobin Oxyhemoglobin Sodium 135 L 135 L Potassium 3.5 L Chloride 93.6 L 94.4 L Carbon Dioxide 17 L 21 L BUN 45 H 28 H Creatinine 3.3 H 2.5 H Glucose 106 H POC Glucose Lactic Acid Calcium 7.3 L 7.1 L Phosphorus Magnesium Direct Bilirubin AST ALT Alkaline Phosphatase Lactate Dehydrogenase Troponin T C-Reactive Protein Total Protein Albumin Prealbumin Triglycerides Cholesterol LDL Cholesterol Direct HDL Cholesterol Urine pH Urine WBC (Auto) Urine Creatinine Urine Total Protein Fluid Total Protein Vancomycin Trough Rheumatoid Factor Complement C4 Miscellaneous Test Crossmatch 09/28/16 09/28/16 09/28/16 03:45 07:25 11:58 WBC 13.3 H RBC 3.01 L Hgb 8.4 L Hct 25.0 L MCV MCH MCHC RDW 20.5 H Plt Count 128 L Lymph % (Auto) [place] % (Auto) Lymph # [place] # Baso # Seg Neutrophils % Seg Neuts % (Manual) Lymphocytes % (Manual) 7.0 L Monocytes % (Manual) Eosinophils % (Manual) 6.0 H Basophils % (Manual) Nucleated RBC % Seg Neutrophils # Seg Neutrophils # Man Lymphocytes # (Manual) 0.9 L Monocytes # (Manual) Eosinophils # (Manual) 0.8 H PT INR Fibrinogen dRVVT Confirm Interp Factor V Activity POC ABG pH POC ABG pCO2 POC ABG pO2 ABG pO2 ABG HCO3 ABG Base Excess ABG Hemoglobin Oxyhemoglobin Sodium Potassium Chloride Carbon Dioxide BUN Creatinine Glucose POC Glucose 121 H Lactic Acid 4.50 H* Calcium Phosphorus Magnesium Direct Bilirubin AST ALT Alkaline Phosphatase Lactate Dehydrogenase Troponin T C-Reactive Protein Total Protein Albumin Prealbumin Triglycerides Cholesterol LDL Cholesterol Direct HDL Cholesterol Urine pH Urine WBC (Auto) Urine Creatinine Urine Total Protein Fluid Total Protein Vancomycin Trough Rheumatoid Factor Complement C4 Miscellaneous Test Crossmatch 09/29/16 09/29/16 09/29/16 06:45 06:45 06:45 WBC 14.9 H RBC 2.74 L Hgb 7.6 L Hct 23.2 L MCV MCH MCHC RDW 20.5 H Plt Count 81 L Lymph % (Auto) [place] % (Auto) Lymph # [place] # Baso # Seg Neutrophils % Seg Neuts % (Manual) 81.0 H Lymphocytes % (Manual) 4.0 L Monocytes % (Manual) Eosinophils % (Manual) Basophils % (Manual) Nucleated RBC % Seg Neutrophils # Seg Neutrophils # Man 12.1 H Lymphocytes # (Manual) 0.6 L Monocytes # (Manual) Eosinophils # (Manual) PT INR Fibrinogen dRVVT Confirm Interp Factor V Activity POC ABG pH POC ABG pCO2 POC ABG pO2 ABG pO2 ABG HCO3 ABG Base Excess ABG Hemoglobin Oxyhemoglobin Sodium 133 L Potassium 3.4 L Chloride 92.5 L Carbon Dioxide 21 L BUN 33 H Creatinine 3.0 H Glucose POC Glucose Lactic Acid Calcium 6.6 L Phosphorus Magnesium 1.40 L Direct Bilirubin 0.9 H AST ALT Alkaline Phosphatase Lactate Dehydrogenase Troponin T C-Reactive Protein Total Protein 4.3 L Albumin 1.3 L Prealbumin Triglycerides Cholesterol LDL Cholesterol Direct HDL Cholesterol Urine pH Urine WBC (Auto) Urine Creatinine Urine Total Protein Fluid Total Protein Vancomycin Trough Rheumatoid Factor Complement C4 Miscellaneous Test Crossmatch 09/29/16 09/29/16 09/30/16 17:52 20:12 00:07 WBC RBC Hgb Hct MCV MCH MCHC RDW Plt Count Lymph % (Auto) [place] % (Auto) Lymph # [place] # Baso # Seg Neutrophils % Seg Neuts % (Manual) Lymphocytes % (Manual) Monocytes % (Manual) Eosinophils % (Manual) Basophils % (Manual) Nucleated RBC % Seg Neutrophils # Seg Neutrophils # Man Lymphocytes # (Manual) Monocytes # (Manual) Eosinophils # (Manual) PT INR Fibrinogen dRVVT Confirm Interp Factor V Activity POC ABG pH POC ABG pCO2 POC ABG pO2 ABG pO2 ABG HCO3 ABG Base Excess ABG Hemoglobin Oxyhemoglobin Sodium Potassium Chloride Carbon Dioxide BUN Creatinine Glucose POC Glucose 50 L 51 L Lactic Acid Calcium Phosphorus Magnesium Direct Bilirubin AST ALT Alkaline Phosphatase Lactate Dehydrogenase Troponin T 0.204 H* C-Reactive Protein Total Protein Albumin Prealbumin Triglycerides Cholesterol 31 L LDL Cholesterol Direct 4 L HDL Cholesterol 3 L Urine pH Urine WBC (Auto) Urine Creatinine Urine Total Protein Fluid Total Protein Vancomycin Trough Rheumatoid Factor Complement C4 Miscellaneous Test Crossmatch 09/30/16 09/30/16 09/30/16 01:30 05:15 06:10 WBC RBC Hgb Hct MCV MCH MCHC RDW Plt Count Lymph % (Auto) [place] % (Auto) Lymph # [place] # Baso # Seg Neutrophils % Seg Neuts % (Manual) Lymphocytes % (Manual) Monocytes % (Manual) Eosinophils % (Manual) Basophils % (Manual) Nucleated RBC % Seg Neutrophils # Seg Neutrophils # Man Lymphocytes # (Manual) Monocytes # (Manual) Eosinophils # (Manual) PT INR Fibrinogen dRVVT Confirm Interp Factor V Activity POC ABG pH POC ABG pCO2 POC ABG pO2 ABG pO2 ABG HCO3 ABG Base Excess ABG Hemoglobin Oxyhemoglobin Sodium 133 L Potassium 3.2 L Chloride 93.2 L Carbon Dioxide 19 L BUN 36 H Creatinine 3.2 H Glucose 104 H POC Glucose 167 H 146 H Lactic Acid Calcium 6.4 L Phosphorus Magnesium 1.60 L Direct Bilirubin AST ALT Alkaline Phosphatase Lactate Dehydrogenase Troponin T C-Reactive Protein Total Protein Albumin Prealbumin Triglycerides Cholesterol LDL Cholesterol Direct HDL Cholesterol Urine pH Urine WBC (Auto) Urine Creatinine Urine Total Protein Fluid Total Protein Vancomycin Trough Rheumatoid Factor Complement C4 Miscellaneous Test Crossmatch 09/30/16 09/30/16 09/30/16 11:26 13:39 18:38 WBC RBC Hgb Hct MCV MCH MCHC RDW Plt Count Lymph % (Auto) [place] % (Auto) Lymph # [place] # Baso # Seg Neutrophils % Seg Neuts % (Manual) Lymphocytes % (Manual) Monocytes % (Manual) Eosinophils % (Manual) Basophils % (Manual) Nucleated RBC % Seg Neutrophils # Seg Neutrophils # Man Lymphocytes # (Manual) Monocytes # (Manual) Eosinophils # (Manual) PT INR Fibrinogen dRVVT Confirm Interp Factor V Activity POC ABG pH 7.479 H POC ABG pCO2 29.8 L POC ABG pO2 117 H ABG pO2 ABG HCO3 ABG Base Excess ABG Hemoglobin Oxyhemoglobin Sodium Potassium Chloride Carbon Dioxide BUN Creatinine Glucose POC Glucose 140 H 122 H Lactic Acid Calcium Phosphorus Magnesium Direct Bilirubin AST ALT Alkaline Phosphatase Lactate Dehydrogenase Troponin T C-Reactive Protein Total Protein Albumin Prealbumin Triglycerides Cholesterol LDL Cholesterol Direct HDL Cholesterol Urine pH Urine WBC (Auto) Urine Creatinine Urine Total Protein Fluid Total Protein Vancomycin Trough Rheumatoid Factor Complement C4 Miscellaneous Test Crossmatch 10/01/16 10/01/16 10/01/16 06:00 06:00 12:37 WBC 12.6 H RBC 2.75 L Hgb 7.3 L Hct 23.3 L MCV MCH 27 L MCHC RDW 20.6 H Plt Count 72 L Lymph % (Auto) [place] % (Auto) Lymph # [place] # Baso # Seg Neutrophils % Seg Neuts % (Manual) 31.0 L Lymphocytes % (Manual) 8.0 L Monocytes % (Manual) Eosinophils % (Manual) Basophils % (Manual) Nucleated RBC % 3.0 H Seg Neutrophils # Seg Neutrophils # Man Lymphocytes # (Manual) 1.0 L Monocytes # (Manual) Eosinophils # (Manual) PT INR Fibrinogen dRVVT Confirm Interp Factor V Activity POC ABG pH POC ABG pCO2 POC ABG pO2 ABG pO2 ABG HCO3 ABG Base Excess ABG Hemoglobin Oxyhemoglobin Sodium 127 L Potassium Chloride 86.8 L Carbon Dioxide 20 L BUN 42 H Creatinine 3.5 H Glucose POC Glucose 65 L Lactic Acid Calcium 7.0 L Phosphorus Magnesium Direct Bilirubin AST ALT Alkaline Phosphatase Lactate Dehydrogenase Troponin T C-Reactive Protein Total Protein Albumin Prealbumin Triglycerides Cholesterol LDL Cholesterol Direct HDL Cholesterol Urine pH Urine WBC (Auto) Urine Creatinine Urine Total Protein Fluid Total Protein Vancomycin Trough Rheumatoid Factor Complement C4 Miscellaneous Test Crossmatch 10/01/16 10/01/16 10/02/16 17:39 23:32 00:59 WBC RBC Hgb Hct MCV MCH MCHC RDW Plt Count Lymph % (Auto) [place] % (Auto) Lymph # [place] # Baso # Seg Neutrophils % Seg Neuts % (Manual) Lymphocytes % (Manual) Monocytes % (Manual) Eosinophils % (Manual) Basophils % (Manual) Nucleated RBC % Seg Neutrophils # Seg Neutrophils # Man Lymphocytes # (Manual) Monocytes # (Manual) Eosinophils # (Manual) PT INR Fibrinogen dRVVT Confirm Interp Factor V Activity POC ABG pH POC ABG pCO2 POC ABG pO2 ABG pO2 ABG HCO3 ABG Base Excess ABG Hemoglobin Oxyhemoglobin Sodium Potassium Chloride Carbon Dioxide BUN Creatinine Glucose POC Glucose 107 H 52 L 145 H Lactic Acid Calcium Phosphorus Magnesium Direct Bilirubin AST ALT Alkaline Phosphatase Lactate Dehydrogenase Troponin T C-Reactive Protein Total Protein Albumin Prealbumin Triglycerides Cholesterol LDL Cholesterol Direct HDL Cholesterol Urine pH Urine WBC (Auto) Urine Creatinine Urine Total Protein Fluid Total Protein Vancomycin Trough Rheumatoid Factor Complement C4 Miscellaneous Test Crossmatch 10/02/16 10/02/16 10/02/16 10:30 10:50 10:50 WBC 14.7 H RBC 2.76 L Hgb 7.4 L Hct 23.6 L MCV MCH 27 L MCHC RDW 20.2 H Plt Count 79 L Lymph % (Auto) [place] % (Auto) Lymph # [place] # Baso # Seg Neutrophils % Seg Neuts % (Manual) 86.0 H Lymphocytes % (Manual) 6.0 L Monocytes % (Manual) Eosinophils % (Manual) Basophils % (Manual) Nucleated RBC % Seg Neutrophils # Seg Neutrophils # Man 12.6 H Lymphocytes # (Manual) 0.9 L Monocytes # (Manual) Eosinophils # (Manual) PT INR Fibrinogen dRVVT Confirm Interp Factor V Activity POC ABG pH 7.486 H POC ABG pCO2 30.1 L POC ABG pO2 108 H ABG pO2 ABG HCO3 ABG Base Excess ABG Hemoglobin Oxyhemoglobin Sodium 131 L Potassium 3.4 L Chloride 89.9 L Carbon Dioxide BUN 26 H Creatinine 2.6 H Glucose POC Glucose Lactic Acid Calcium 7.0 L Phosphorus Magnesium Direct Bilirubin AST ALT Alkaline Phosphatase Lactate Dehydrogenase Troponin T C-Reactive Protein Total Protein Albumin Prealbumin Triglycerides Cholesterol LDL Cholesterol Direct HDL Cholesterol Urine pH Urine WBC (Auto) Urine Creatinine Urine Total Protein Fluid Total Protein Vancomycin Trough Rheumatoid Factor Complement C4 Miscellaneous Test Crossmatch 10/02/16 10/03/16 10/03/16 23:45 00:45 05:10 WBC 12.9 H RBC 2.77 L Hgb 7.6 L Hct 23.7 L MCV MCH 27 L MCHC RDW 19.7 H Plt Count 89 L Lymph % (Auto) [place] % (Auto) Lymph # [place] # Baso # Seg Neutrophils % Seg Neuts % (Manual) Lymphocytes % (Manual) 8.0 L Monocytes % (Manual) Eosinophils % (Manual) Basophils % (Manual) Nucleated RBC % Seg Neutrophils # 11.9 H Seg Neutrophils # Man Lymphocytes # (Manual) 1.0 L Monocytes # (Manual) Eosinophils # (Manual) PT INR Fibrinogen dRVVT Confirm Interp Factor V Activity POC ABG pH POC ABG pCO2 POC ABG pO2 ABG pO2 ABG HCO3 ABG Base Excess ABG Hemoglobin Oxyhemoglobin Sodium Potassium Chloride Carbon Dioxide BUN Creatinine Glucose POC Glucose 55 L 199 H Lactic Acid Calcium Phosphorus Magnesium Direct Bilirubin AST ALT Alkaline Phosphatase Lactate Dehydrogenase Troponin T C-Reactive Protein Total Protein Albumin Prealbumin Triglycerides Cholesterol LDL Cholesterol Direct HDL Cholesterol Urine pH Urine WBC (Auto) Urine Creatinine Urine Total Protein Fluid Total Protein Vancomycin Trough Rheumatoid Factor Complement C4 Miscellaneous Test Crossmatch 10/03/16 10/03/16 10/03/16 05:10 12:14 13:18 WBC RBC Hgb Hct MCV MCH MCHC RDW Plt Count Lymph % (Auto) [place] % (Auto) Lymph # [place] # Baso # Seg Neutrophils % Seg Neuts % (Manual) Lymphocytes % (Manual) Monocytes % (Manual) Eosinophils % (Manual) Basophils % (Manual) Nucleated RBC % Seg Neutrophils # Seg Neutrophils # Man Lymphocytes # (Manual) Monocytes # (Manual) Eosinophils # (Manual) PT INR Fibrinogen dRVVT Confirm Interp Factor V Activity POC ABG pH POC ABG pCO2 POC ABG pO2 ABG pO2 ABG HCO3 ABG Base Excess ABG Hemoglobin Oxyhemoglobin Sodium 129 L Potassium 3.3 L Chloride 88.8 L Carbon Dioxide 20 L BUN 29 H Creatinine 2.8 H Glucose POC Glucose 68 L 127 H Lactic Acid Calcium 7.2 L Phosphorus Magnesium Direct Bilirubin AST ALT Alkaline Phosphatase Lactate Dehydrogenase Troponin T C-Reactive Protein Total Protein Albumin Prealbumin Triglycerides Cholesterol LDL Cholesterol Direct HDL Cholesterol Urine pH Urine WBC (Auto) Urine Creatinine Urine Total Protein Fluid Total Protein Vancomycin Trough Rheumatoid Factor Complement C4 Miscellaneous Test Crossmatch 10/03/16 10/03/16 10/03/16 14:42 18:21 19:09 WBC RBC Hgb Hct MCV MCH MCHC RDW Plt Count Lymph % (Auto) [place] % (Auto) Lymph # [place] # Baso # Seg Neutrophils % Seg Neuts % (Manual) Lymphocytes % (Manual) Monocytes % (Manual) Eosinophils % (Manual) Basophils % (Manual) Nucleated RBC % Seg Neutrophils # Seg Neutrophils # Man Lymphocytes # (Manual) Monocytes # (Manual) Eosinophils # (Manual) PT INR Fibrinogen dRVVT Confirm Interp Factor V Activity POC ABG pH 7.499 H POC ABG pCO2 28.4 L POC ABG pO2 44 L ABG pO2 ABG HCO3 ABG Base Excess ABG Hemoglobin Oxyhemoglobin Sodium Potassium Chloride Carbon Dioxide BUN Creatinine Glucose POC Glucose 64 L 205 H Lactic Acid Calcium Phosphorus Magnesium Direct Bilirubin AST ALT Alkaline Phosphatase Lactate Dehydrogenase Troponin T C-Reactive Protein Total Protein Albumin Prealbumin Triglycerides Cholesterol LDL Cholesterol Direct HDL Cholesterol Urine pH Urine WBC (Auto) Urine Creatinine Urine Total Protein Fluid Total Protein Vancomycin Trough Rheumatoid Factor Complement C4 Miscellaneous Test Crossmatch 10/03/16 10/04/16 10/04/16 23:33 04:18 06:30 WBC RBC 2.54 L Hgb 7.1 L Hct 21.7 L MCV MCH MCHC RDW 19.5 H Plt Count 76 L Lymph % (Auto) [place] % (Auto) Lymph # [place] # Baso # Seg Neutrophils % Seg Neuts % (Manual) 88.0 H Lymphocytes % (Manual) 6.0 L Monocytes % (Manual) Eosinophils % (Manual) Basophils % (Manual) Nucleated RBC % Seg Neutrophils # Seg Neutrophils # Man 8.8 H Lymphocytes # (Manual) 0.6 L Monocytes # (Manual) Eosinophils # (Manual) PT INR Fibrinogen dRVVT Confirm Interp Factor V Activity POC ABG pH 7.461 H POC ABG pCO2 33.6 L POC ABG pO2 211 H ABG pO2 ABG HCO3 ABG Base Excess ABG Hemoglobin Oxyhemoglobin Sodium Potassium Chloride Carbon Dioxide BUN Creatinine Glucose POC Glucose 136 H Lactic Acid Calcium Phosphorus Magnesium Direct Bilirubin AST ALT Alkaline Phosphatase Lactate Dehydrogenase Troponin T C-Reactive Protein Total Protein Albumin Prealbumin Triglycerides Cholesterol LDL Cholesterol Direct HDL Cholesterol Urine pH Urine WBC (Auto) Urine Creatinine Urine Total Protein Fluid Total Protein Vancomycin Trough Rheumatoid Factor Complement C4 Miscellaneous Test Crossmatch 10/04/16 10/04/16 10/04/16 06:30 11:45 17:54 WBC RBC Hgb Hct MCV MCH MCHC RDW Plt Count Lymph % (Auto) [place] % (Auto) Lymph # [place] # Baso # Seg Neutrophils % Seg Neuts % (Manual) Lymphocytes % (Manual) Monocytes % (Manual) Eosinophils % (Manual) Basophils % (Manual) Nucleated RBC % Seg Neutrophils # Seg Neutrophils # Man Lymphocytes # (Manual) Monocytes # (Manual) Eosinophils # (Manual) PT INR Fibrinogen dRVVT Confirm Interp Factor V Activity POC ABG pH POC ABG pCO2 POC ABG pO2 ABG pO2 ABG HCO3 ABG Base Excess ABG Hemoglobin Oxyhemoglobin Sodium 128 L Potassium Chloride 87.4 L Carbon Dioxide 20 L BUN 34 H Creatinine 2.9 H Glucose 127 H POC Glucose 158 H 160 H Lactic Acid Calcium 7.4 L Phosphorus Magnesium Direct Bilirubin AST ALT Alkaline Phosphatase Lactate Dehydrogenase Troponin T C-Reactive Protein Total Protein Albumin Prealbumin Triglycerides Cholesterol LDL Cholesterol Direct HDL Cholesterol Urine pH Urine WBC (Auto) Urine Creatinine Urine Total Protein Fluid Total Protein Vancomycin Trough Rheumatoid Factor Complement C4 Miscellaneous Test Crossmatch 10/04/16 10/05/16 10/05/16 23:25 04:30 05:00 WBC RBC 2.64 L Hgb 7.5 L Hct 22.6 L MCV MCH MCHC RDW 19.3 H Plt Count 80 L Lymph % (Auto) [place] % (Auto) Lymph # [place] # Baso # Seg Neutrophils % Seg Neuts % (Manual) Lymphocytes % (Manual) 12.0 L Monocytes % (Manual) Eosinophils % (Manual) Basophils % (Manual) Nucleated RBC % Seg Neutrophils # Seg Neutrophils # Man Lymphocytes # (Manual) Monocytes # (Manual) Eosinophils # (Manual) PT INR Fibrinogen dRVVT Confirm Interp Factor V Activity POC ABG pH 7.475 H POC ABG pCO2 33.3 L POC ABG pO2 140 H ABG pO2 ABG HCO3 ABG Base Excess ABG Hemoglobin Oxyhemoglobin Sodium Potassium Chloride Carbon Dioxide BUN Creatinine Glucose POC Glucose 141 H Lactic Acid Calcium Phosphorus Magnesium Direct Bilirubin AST ALT Alkaline Phosphatase Lactate Dehydrogenase Troponin T C-Reactive Protein Total Protein Albumin Prealbumin Triglycerides Cholesterol LDL Cholesterol Direct HDL Cholesterol Urine pH Urine WBC (Auto) Urine Creatinine Urine Total Protein Fluid Total Protein Vancomycin Trough Rheumatoid Factor Complement C4 Miscellaneous Test Crossmatch 10/05/16 10/05/16 10/05/16 05:00 05:09 12:58 WBC RBC Hgb Hct MCV MCH MCHC RDW Plt Count Lymph % (Auto) [place] % (Auto) Lymph # [place] # Baso # Seg Neutrophils % Seg Neuts % (Manual) Lymphocytes % (Manual) Monocytes % (Manual) Eosinophils % (Manual) Basophils % (Manual) Nucleated RBC % Seg Neutrophils # Seg Neutrophils # Man Lymphocytes # (Manual) Monocytes # (Manual) Eosinophils # (Manual) PT INR Fibrinogen dRVVT Confirm Interp Factor V Activity POC ABG pH POC ABG pCO2 POC ABG pO2 ABG pO2 ABG HCO3 ABG Base Excess ABG Hemoglobin Oxyhemoglobin Sodium 131 L Potassium Chloride 94.0 L Carbon Dioxide 20 L BUN 22 H Creatinine 2.0 H Glucose 123 H POC Glucose 166 H 179 H Lactic Acid Calcium 7.7 L Phosphorus 2.20 L D Magnesium Direct Bilirubin AST ALT Alkaline Phosphatase Lactate Dehydrogenase Troponin T C-Reactive Protein Total Protein Albumin Prealbumin Triglycerides Cholesterol LDL Cholesterol Direct HDL Cholesterol Urine pH Urine WBC (Auto) Urine Creatinine Urine Total Protein Fluid Total Protein Vancomycin Trough Rheumatoid Factor Complement C4 Miscellaneous Test Crossmatch 10/05/16 10/05/16 10/05/16 15:50 18:53 23:12 WBC RBC Hgb Hct MCV MCH MCHC RDW Plt Count Lymph % (Auto) [place] % (Auto) Lymph # [place] # Baso # Seg Neutrophils % Seg Neuts % (Manual) Lymphocytes % (Manual) Monocytes % (Manual) Eosinophils % (Manual) Basophils % (Manual) Nucleated RBC % Seg Neutrophils # Seg Neutrophils # Man Lymphocytes # (Manual) Monocytes # (Manual) Eosinophils # (Manual) PT INR Fibrinogen dRVVT Confirm Interp Factor V Activity POC ABG pH POC ABG pCO2 POC ABG pO2 ABG pO2 ABG HCO3 ABG Base Excess ABG Hemoglobin Oxyhemoglobin Sodium Potassium Chloride Carbon Dioxide BUN Creatinine Glucose POC Glucose 150 H 164 H Lactic Acid Calcium Phosphorus Magnesium Direct Bilirubin AST ALT Alkaline Phosphatase Lactate Dehydrogenase Troponin T C-Reactive Protein Total Protein Albumin Prealbumin Triglycerides Cholesterol LDL Cholesterol Direct HDL Cholesterol Urine pH Urine WBC (Auto) Urine Creatinine Urine Total Protein Fluid Total Protein Vancomycin Trough Rheumatoid Factor Complement C4 Miscellaneous Test Crossmatch See Detail 10/06/16 10/06/16 10/06/16 03:50 03:50 04:53 WBC RBC 3.00 L Hgb 8.6 L Hct 25.8 L MCV MCH MCHC RDW 17.9 H Plt Count 65 L Lymph % (Auto) [place] % (Auto) Lymph # [place] # Baso # Seg Neutrophils % Seg Neuts % (Manual) 30.0 L Lymphocytes % (Manual) 5.0 L Monocytes % (Manual) Eosinophils % (Manual) Basophils % (Manual) Nucleated RBC % Seg Neutrophils # Seg Neutrophils # Man Lymphocytes # (Manual) 0.4 L Monocytes # (Manual) Eosinophils # (Manual) PT INR Fibrinogen dRVVT Confirm Interp Factor V Activity POC ABG pH 7.310 L POC ABG pCO2 49.0 H POC ABG pO2 ABG pO2 ABG HCO3 ABG Base Excess ABG Hemoglobin Oxyhemoglobin Sodium 133 L Potassium Chloride 95.9 L Carbon Dioxide BUN 26 H Creatinine 2.0 H Glucose 116 H POC Glucose Lactic Acid Calcium 7.8 L Phosphorus Magnesium Direct Bilirubin AST ALT Alkaline Phosphatase Lactate Dehydrogenase Troponin T C-Reactive Protein Total Protein Albumin Prealbumin Triglycerides Cholesterol LDL Cholesterol Direct HDL Cholesterol Urine pH Urine WBC (Auto) Urine Creatinine Urine Total Protein Fluid Total Protein Vancomycin Trough Rheumatoid Factor Complement C4 Miscellaneous Test Crossmatch 10/06/16 10/06/16 10/06/16 05:23 11:52 18:34 WBC RBC Hgb Hct MCV MCH MCHC RDW Plt Count Lymph % (Auto) [place] % (Auto) Lymph # [place] # Baso # Seg Neutrophils % Seg Neuts % (Manual) Lymphocytes % (Manual) Monocytes % (Manual) Eosinophils % (Manual) Basophils % (Manual) Nucleated RBC % Seg Neutrophils # Seg Neutrophils # Man Lymphocytes # (Manual) Monocytes # (Manual) Eosinophils # (Manual) PT INR Fibrinogen dRVVT Confirm Interp Factor V Activity POC ABG pH POC ABG pCO2 POC ABG pO2 ABG pO2 ABG HCO3 ABG Base Excess ABG Hemoglobin Oxyhemoglobin Sodium Potassium Chloride Carbon Dioxide BUN Creatinine Glucose POC Glucose 126 H 116 H 129 H Lactic Acid Calcium Phosphorus Magnesium Direct Bilirubin AST ALT Alkaline Phosphatase Lactate Dehydrogenase Troponin T C-Reactive Protein Total Protein Albumin Prealbumin Triglycerides Cholesterol LDL Cholesterol Direct HDL Cholesterol Urine pH Urine WBC (Auto) Urine Creatinine Urine Total Protein Fluid Total Protein Vancomycin Trough Rheumatoid Factor Complement C4 Miscellaneous Test Crossmatch 10/07/16 10/07/16 10/07/16 03:45 05:00 10:00 WBC 17.0 H RBC 2.68 L Hgb 7.3 L Hct 25.3 L MCV MCH 27 L MCHC 29 L RDW 19.6 H Plt Count 74 L Lymph % (Auto) [place] % (Auto) Lymph # [place] # Baso # Seg Neutrophils % Seg Neuts % (Manual) Lymphocytes % (Manual) 12.0 L Monocytes % (Manual) Eosinophils % (Manual) Basophils % (Manual) Nucleated RBC % 4.0 H Seg Neutrophils # Seg Neutrophils # Man 10.7 H Lymphocytes # (Manual) Monocytes # (Manual) Eosinophils # (Manual) PT INR Fibrinogen dRVVT Confirm Interp Factor V Activity POC ABG pH POC ABG pCO2 POC ABG pO2 ABG pO2 ABG HCO3 ABG Base Excess ABG Hemoglobin Oxyhemoglobin Sodium 130 L Potassium 3.2 L Chloride 93.9 L Carbon Dioxide 20 L BUN 44 H Creatinine 2.7 H Glucose 129 H POC Glucose Lactic Acid Calcium 7.4 L Phosphorus Magnesium Direct Bilirubin AST ALT 6 L Alkaline Phosphatase 195 H Lactate Dehydrogenase Troponin T C-Reactive Protein Total Protein 4.9 L Albumin 1.0 L Prealbumin Triglycerides Cholesterol LDL Cholesterol Direct HDL Cholesterol Urine pH Urine WBC (Auto) Urine Creatinine Urine Total Protein Fluid Total Protein Vancomycin Trough Rheumatoid Factor Complement C4 Miscellaneous Test Flexitest 1 H Crossmatch 10/07/16 10/07/16 10/07/16 10:00 11:24 18:10 WBC RBC Hgb Hct MCV MCH MCHC RDW Plt Count Lymph % (Auto) [place] % (Auto) Lymph # [place] # Baso # Seg Neutrophils % Seg Neuts % (Manual) Lymphocytes % (Manual) Monocytes % (Manual) Eosinophils % (Manual) Basophils % (Manual) Nucleated RBC % Seg Neutrophils # Seg Neutrophils # Man Lymphocytes # (Manual) Monocytes # (Manual) Eosinophils # (Manual) PT INR Fibrinogen dRVVT Confirm Interp Factor V Activity POC ABG pH POC ABG pCO2 POC ABG pO2 ABG pO2 ABG HCO3 ABG Base Excess ABG Hemoglobin Oxyhemoglobin Sodium Potassium Chloride Carbon Dioxide BUN Creatinine Glucose POC Glucose 116 H 130 H Lactic Acid Calcium Phosphorus Magnesium Direct Bilirubin AST ALT Alkaline Phosphatase Lactate Dehydrogenase Troponin T C-Reactive Protein 19.40 H Total Protein Albumin Prealbumin Triglycerides Cholesterol LDL Cholesterol Direct HDL Cholesterol Urine pH Urine WBC (Auto) Urine Creatinine Urine Total Protein Fluid Total Protein Vancomycin Trough Rheumatoid Factor Complement C4 Miscellaneous Test Crossmatch 10/07/16 10/08/16 10/08/16 18:30 00:00 04:00 WBC RBC Hgb Hct MCV MCH MCHC RDW Plt Count Lymph % (Auto) [place] % (Auto) Lymph # [place] # Baso # Seg Neutrophils % Seg Neuts % (Manual) Lymphocytes % (Manual) Monocytes % (Manual) Eosinophils % (Manual) Basophils % (Manual) Nucleated RBC % Seg Neutrophils # Seg Neutrophils # Man Lymphocytes # (Manual) Monocytes # (Manual) Eosinophils # (Manual) PT INR Fibrinogen dRVVT Confirm Interp Factor V Activity POC ABG pH POC ABG pCO2 POC ABG pO2 ABG pO2 ABG HCO3 ABG Base Excess ABG Hemoglobin Oxyhemoglobin Sodium 132 L Potassium 3.3 L Chloride 93.6 L Carbon Dioxide 17 L BUN 59 H Creatinine 2.7 H Glucose 121 H POC Glucose 122 H Lactic Acid Calcium 7.6 L Phosphorus Magnesium Direct Bilirubin AST ALT Alkaline Phosphatase Lactate Dehydrogenase Troponin T C-Reactive Protein Total Protein Albumin Prealbumin Triglycerides Cholesterol LDL Cholesterol Direct HDL Cholesterol Urine pH Urine WBC (Auto) > 182.0 H Urine Creatinine Urine Total Protein Fluid Total Protein Vancomycin Trough Rheumatoid Factor Complement C4 Miscellaneous Test Crossmatch 10/08/16 10/08/16 10/08/16 04:30 05:30 11:51 WBC RBC 5.15 H Hgb 14.4 H D Hct 44.5 H D MCV MCH MCHC RDW 19.5 H Plt Count 56 L Lymph % (Auto) [place] % (Auto) Lymph # [place] # Baso # Seg Neutrophils % Seg Neuts % (Manual) 24.0 L Lymphocytes % (Manual) 8.0 L Monocytes % (Manual) Eosinophils % (Manual) Basophils % (Manual) Nucleated RBC % 9.0 H Seg Neutrophils # Seg Neutrophils # Man Lymphocytes # (Manual) 0.7 L Monocytes # (Manual) Eosinophils # (Manual) PT INR Fibrinogen dRVVT Confirm Interp Factor V Activity POC ABG pH POC ABG pCO2 POC ABG pO2 ABG pO2 ABG HCO3 ABG Base Excess ABG Hemoglobin Oxyhemoglobin Sodium Potassium Chloride Carbon Dioxide BUN Creatinine Glucose POC Glucose 125 H 150 H Lactic Acid Calcium Phosphorus Magnesium Direct Bilirubin AST ALT Alkaline Phosphatase Lactate Dehydrogenase Troponin T C-Reactive Protein Total Protein Albumin Prealbumin Triglycerides Cholesterol LDL Cholesterol Direct HDL Cholesterol Urine pH Urine WBC (Auto) Urine Creatinine Urine Total Protein Fluid Total Protein Vancomycin Trough Rheumatoid Factor Complement C4 Miscellaneous Test Crossmatch 10/08/16 10/08/16 10/08/16 12:49 17:07 19:30 WBC RBC Hgb 7.1 L D Hct 22.4 L D MCV MCH MCHC RDW Plt Count Lymph % (Auto) [place] % (Auto) Lymph # [place] # Baso # Seg Neutrophils % Seg Neuts % (Manual) Lymphocytes % (Manual) Monocytes % (Manual) Eosinophils % (Manual) Basophils % (Manual) Nucleated RBC % Seg Neutrophils # Seg Neutrophils # Man Lymphocytes # (Manual) Monocytes # (Manual) Eosinophils # (Manual) PT INR Fibrinogen dRVVT Confirm Interp Factor V Activity POC ABG pH POC ABG pCO2 28.2 L POC ABG pO2 111 H ABG pO2 ABG HCO3 ABG Base Excess ABG Hemoglobin Oxyhemoglobin Sodium Potassium Chloride Carbon Dioxide BUN Creatinine Glucose POC Glucose 145 H Lactic Acid Calcium Phosphorus Magnesium Direct Bilirubin AST ALT Alkaline Phosphatase Lactate Dehydrogenase Troponin T C-Reactive Protein Total Protein Albumin Prealbumin Triglycerides Cholesterol LDL Cholesterol Direct HDL Cholesterol Urine pH Urine WBC (Auto) Urine Creatinine Urine Total Protein Fluid Total Protein Vancomycin Trough Rheumatoid Factor Complement C4 Miscellaneous Test Crossmatch 10/08/16 10/09/16 10/09/16 19:30 03:45 03:45 WBC 12.6 H RBC 2.36 L Hgb 6.7 L Hct 21.1 L MCV MCH MCHC RDW 19.5 H Plt Count 75 L Lymph % (Auto) [place] % (Auto) Lymph # [place] # Baso # Seg Neutrophils % Seg Neuts % (Manual) Lymphocytes % (Manual) Monocytes % (Manual) 10.0 H Eosinophils % (Manual) Basophils % (Manual) Nucleated RBC % 3.0 H Seg Neutrophils # Seg Neutrophils # Man Lymphocytes # (Manual) Monocytes # (Manual) 1.3 H Eosinophils # (Manual) PT 18.0 H INR 1.41 H Fibrinogen dRVVT Confirm Interp Factor V Activity POC ABG pH POC ABG pCO2 POC ABG pO2 ABG pO2 ABG HCO3 ABG Base Excess ABG Hemoglobin Oxyhemoglobin Sodium 135 L Potassium Chloride Carbon Dioxide 17 L BUN 81 H Creatinine 3.2 H Glucose 109 H POC Glucose Lactic Acid Calcium 7.4 L Phosphorus 4.60 H D Magnesium Direct Bilirubin AST ALT Alkaline Phosphatase Lactate Dehydrogenase Troponin T C-Reactive Protein Total Protein Albumin Prealbumin Triglycerides Cholesterol LDL Cholesterol Direct HDL Cholesterol Urine pH Urine WBC (Auto) Urine Creatinine Urine Total Protein Fluid Total Protein Vancomycin Trough Rheumatoid Factor Complement C4 Miscellaneous Test Crossmatch 10/09/16 10/09/16 10/09/16 03:45 05:14 07:20 WBC RBC Hgb Hct MCV MCH MCHC RDW Plt Count Lymph % (Auto) [place] % (Auto) Lymph # [place] # Baso # Seg Neutrophils % Seg Neuts % (Manual) Lymphocytes % (Manual) Monocytes % (Manual) Eosinophils % (Manual) Basophils % (Manual) Nucleated RBC % Seg Neutrophils # Seg Neutrophils # Man Lymphocytes # (Manual) Monocytes # (Manual) Eosinophils # (Manual) PT 19.0 H INR 1.51 H Fibrinogen dRVVT Confirm Interp Factor V Activity POC ABG pH POC ABG pCO2 POC ABG pO2 ABG pO2 ABG HCO3 ABG Base Excess ABG Hemoglobin Oxyhemoglobin Sodium Potassium Chloride Carbon Dioxide BUN Creatinine Glucose POC Glucose 151 H Lactic Acid Calcium Phosphorus Magnesium Direct Bilirubin AST ALT Alkaline Phosphatase Lactate Dehydrogenase Troponin T C-Reactive Protein Total Protein Albumin Prealbumin Triglycerides Cholesterol LDL Cholesterol Direct HDL Cholesterol Urine pH Urine WBC (Auto) Urine Creatinine Urine Total Protein Fluid Total Protein Vancomycin Trough Rheumatoid Factor Complement C4 Miscellaneous Test Crossmatch See Detail 10/09/16 10/09/16 10/09/16 11:46 16:20 16:43 WBC RBC Hgb 7.2 L Hct 22.2 L MCV MCH MCHC RDW Plt Count Lymph % (Auto) [place] % (Auto) Lymph # [place] # Baso # Seg Neutrophils % Seg Neuts % (Manual) Lymphocytes % (Manual) Monocytes % (Manual) Eosinophils % (Manual) Basophils % (Manual) Nucleated RBC % Seg Neutrophils # Seg Neutrophils # Man Lymphocytes # (Manual) Monocytes # (Manual) Eosinophils # (Manual) PT INR Fibrinogen dRVVT Confirm Interp Factor V Activity POC ABG pH POC ABG pCO2 POC ABG pO2 ABG pO2 ABG HCO3 ABG Base Excess ABG Hemoglobin Oxyhemoglobin Sodium Potassium Chloride Carbon Dioxide BUN Creatinine Glucose POC Glucose 133 H 141 H Lactic Acid Calcium Phosphorus Magnesium Direct Bilirubin AST ALT Alkaline Phosphatase Lactate Dehydrogenase Troponin T C-Reactive Protein Total Protein Albumin Prealbumin Triglycerides Cholesterol LDL Cholesterol Direct HDL Cholesterol Urine pH Urine WBC (Auto) Urine Creatinine Urine Total Protein Fluid Total Protein Vancomycin Trough Rheumatoid Factor Complement C4 Miscellaneous Test Crossmatch 10/10/16 10/10/16 10/10/16 05:00 05:00 11:19 WBC 18.5 H RBC 2.19 L Hgb 6.4 L Hct 19.6 L* MCV MCH MCHC RDW 19.3 H Plt Count 93 L Lymph % (Auto) [place] % (Auto) Lymph # [place] # Baso # Seg Neutrophils % Seg Neuts % (Manual) Lymphocytes % (Manual) 10.0 L Monocytes % (Manual) Eosinophils % (Manual) Basophils % (Manual) Nucleated RBC % 4.0 H Seg Neutrophils # Seg Neutrophils # Man 11.3 H Lymphocytes # (Manual) Monocytes # (Manual) Eosinophils # (Manual) PT INR Fibrinogen dRVVT Confirm Interp Factor V Activity POC ABG pH POC ABG pCO2 POC ABG pO2 ABG pO2 ABG HCO3 ABG Base Excess ABG Hemoglobin Oxyhemoglobin Sodium Potassium 5.7 H D Chloride Carbon Dioxide 16 L BUN 94 H Creatinine 3.1 H Glucose 131 H POC Glucose 153 H Lactic Acid Calcium 8.2 L Phosphorus 5.10 H Magnesium 2.40 H Direct Bilirubin 0.3 H AST ALT < 5 L Alkaline Phosphatase 319 H Lactate Dehydrogenase Troponin T C-Reactive Protein Total Protein 5.1 L Albumin 1.0 L Prealbumin Triglycerides Cholesterol LDL Cholesterol Direct HDL Cholesterol Urine pH Urine WBC (Auto) Urine Creatinine Urine Total Protein Fluid Total Protein Vancomycin Trough Rheumatoid Factor Complement C4 Miscellaneous Test Crossmatch 10/10/16 10/10/16 10/11/16 17:50 23:30 04:15 WBC RBC Hgb Hct MCV MCH MCHC RDW Plt Count Lymph % (Auto) [place] % (Auto) Lymph # [place] # Baso # Seg Neutrophils % Seg Neuts % (Manual) Lymphocytes % (Manual) Monocytes % (Manual) Eosinophils % (Manual) Basophils % (Manual) Nucleated RBC % Seg Neutrophils # Seg Neutrophils # Man Lymphocytes # (Manual) Monocytes # (Manual) Eosinophils # (Manual) PT INR Fibrinogen dRVVT Confirm Interp Factor V Activity POC ABG pH POC ABG pCO2 POC ABG pO2 ABG pO2 ABG HCO3 ABG Base Excess ABG Hemoglobin Oxyhemoglobin Sodium Potassium Chloride 96.4 L Carbon Dioxide 21 L BUN 57 H Creatinine 2.1 H Glucose 151 H POC Glucose 146 H 141 H Lactic Acid Calcium 8.3 L Phosphorus Magnesium Direct Bilirubin AST ALT Alkaline Phosphatase Lactate Dehydrogenase Troponin T C-Reactive Protein Total Protein Albumin Prealbumin Triglycerides Cholesterol LDL Cholesterol Direct HDL Cholesterol Urine pH Urine WBC (Auto) Urine Creatinine Urine Total Protein Fluid Total Protein Vancomycin Trough Rheumatoid Factor Complement C4 Miscellaneous Test Crossmatch 10/11/16 10/11/16 10/11/16 04:15 04:15 05:30 WBC 28.3 H RBC 3.12 L Hgb 9.3 L Hct 28.7 L D MCV MCH MCHC RDW 17.7 H Plt Count 128 L Lymph % (Auto) [place] % (Auto) Lymph # [place] # Baso # Seg Neutrophils % Seg Neuts % (Manual) Lymphocytes % (Manual) Monocytes % (Manual) Eosinophils % (Manual) Basophils % (Manual) Nucleated RBC % Seg Neutrophils # Seg Neutrophils # Man Lymphocytes # (Manual) Monocytes # (Manual) Eosinophils # (Manual) PT INR Fibrinogen dRVVT Confirm Interp Factor V Activity POC ABG pH POC ABG pCO2 POC ABG pO2 ABG pO2 ABG HCO3 ABG Base Excess ABG Hemoglobin Oxyhemoglobin Sodium Potassium Chloride Carbon Dioxide BUN Creatinine Glucose POC Glucose 167 H Lactic Acid Calcium Phosphorus Magnesium Direct Bilirubin AST ALT Alkaline Phosphatase Lactate Dehydrogenase Troponin T C-Reactive Protein 15.80 H Total Protein Albumin Prealbumin Triglycerides Cholesterol LDL Cholesterol Direct HDL Cholesterol Urine pH Urine WBC (Auto) Urine Creatinine Urine Total Protein Fluid Total Protein Vancomycin Trough Rheumatoid Factor Complement C4 Miscellaneous Test Crossmatch 10/11/16 10/11/16 10/11/16 11:40 15:49 23:57 WBC RBC Hgb Hct MCV MCH MCHC RDW Plt Count Lymph % (Auto) [place] % (Auto) Lymph # [place] # Baso # Seg Neutrophils % Seg Neuts % (Manual) Lymphocytes % (Manual) Monocytes % (Manual) Eosinophils % (Manual) Basophils % (Manual) Nucleated RBC % Seg Neutrophils # Seg Neutrophils # Man Lymphocytes # (Manual) Monocytes # (Manual) Eosinophils # (Manual) PT INR Fibrinogen dRVVT Confirm Interp Factor V Activity POC ABG pH POC ABG pCO2 POC ABG pO2 ABG pO2 ABG HCO3 ABG Base Excess ABG Hemoglobin Oxyhemoglobin Sodium Potassium Chloride Carbon Dioxide BUN Creatinine Glucose POC Glucose 139 H 168 H 161 H Lactic Acid Calcium Phosphorus Magnesium Direct Bilirubin AST ALT Alkaline Phosphatase Lactate Dehydrogenase Troponin T C-Reactive Protein Total Protein Albumin Prealbumin Triglycerides Cholesterol LDL Cholesterol Direct HDL Cholesterol Urine pH Urine WBC (Auto) Urine Creatinine Urine Total Protein Fluid Total Protein Vancomycin Trough Rheumatoid Factor Complement C4 Miscellaneous Test Crossmatch 10/12/16 10/12/16 10/12/16 04:40 04:40 05:44 WBC 22.5 H RBC 2.88 L Hgb 8.8 L Hct 26.8 L MCV MCH MCHC RDW 17.8 H Plt Count Lymph % (Auto) [place] % (Auto) Lymph # [place] # Baso # Seg Neutrophils % Seg Neuts % (Manual) Lymphocytes % (Manual) Monocytes % (Manual) Eosinophils % (Manual) Basophils % (Manual) Nucleated RBC % Seg Neutrophils # Seg Neutrophils # Man Lymphocytes # (Manual) Monocytes # (Manual) Eosinophils # (Manual) PT INR Fibrinogen dRVVT Confirm Interp Factor V Activity POC ABG pH POC ABG pCO2 POC ABG pO2 ABG pO2 ABG HCO3 ABG Base Excess ABG Hemoglobin Oxyhemoglobin Sodium 134 L Potassium Chloride 93.0 L Carbon Dioxide BUN 74 H Creatinine 2.5 H Glucose 137 H POC Glucose 158 H Lactic Acid Calcium 8.2 L Phosphorus Magnesium Direct Bilirubin AST ALT Alkaline Phosphatase Lactate Dehydrogenase Troponin T C-Reactive Protein Total Protein Albumin Prealbumin Triglycerides Cholesterol LDL Cholesterol Direct HDL Cholesterol Urine pH Urine WBC (Auto) Urine Creatinine Urine Total Protein Fluid Total Protein Vancomycin Trough Rheumatoid Factor Complement C4 Miscellaneous Test Crossmatch 10/12/16 10/12/16 10/12/16 12:27 18:18 23:46 WBC RBC Hgb Hct MCV MCH MCHC RDW Plt Count Lymph % (Auto) [place] % (Auto) Lymph # [place] # Baso # Seg Neutrophils % Seg Neuts % (Manual) Lymphocytes % (Manual) Monocytes % (Manual) Eosinophils % (Manual) Basophils % (Manual) Nucleated RBC % Seg Neutrophils # Seg Neutrophils # Man Lymphocytes # (Manual) Monocytes # (Manual) Eosinophils # (Manual) PT INR Fibrinogen dRVVT Confirm Interp Factor V Activity POC ABG pH POC ABG pCO2 POC ABG pO2 ABG pO2 ABG HCO3 ABG Base Excess ABG Hemoglobin Oxyhemoglobin Sodium Potassium Chloride Carbon Dioxide BUN Creatinine Glucose POC Glucose 153 H 140 H 150 H Lactic Acid Calcium Phosphorus Magnesium Direct Bilirubin AST ALT Alkaline Phosphatase Lactate Dehydrogenase Troponin T C-Reactive Protein Total Protein Albumin Prealbumin Triglycerides Cholesterol LDL Cholesterol Direct HDL Cholesterol Urine pH Urine WBC (Auto) Urine Creatinine Urine Total Protein Fluid Total Protein Vancomycin Trough Rheumatoid Factor Complement C4 Miscellaneous Test Crossmatch 10/13/16 10/13/16 10/13/16 06:22 09:20 12:29 WBC RBC Hgb Hct MCV MCH MCHC RDW Plt Count Lymph % (Auto) [place] % (Auto) Lymph # [place] # Baso # Seg Neutrophils % Seg Neuts % (Manual) Lymphocytes % (Manual) Monocytes % (Manual) Eosinophils % (Manual) Basophils % (Manual) Nucleated RBC % Seg Neutrophils # Seg Neutrophils # Man Lymphocytes # (Manual) Monocytes # (Manual) Eosinophils # (Manual) PT INR Fibrinogen dRVVT Confirm Interp Factor V Activity POC ABG pH POC ABG pCO2 POC ABG pO2 ABG pO2 ABG HCO3 ABG Base Excess ABG Hemoglobin Oxyhemoglobin Sodium Potassium Chloride Carbon Dioxide BUN Creatinine Glucose POC Glucose 165 H 193 H Lactic Acid Calcium Phosphorus Magnesium Direct Bilirubin AST ALT Alkaline Phosphatase Lactate Dehydrogenase Troponin T C-Reactive Protein Total Protein Albumin Prealbumin Triglycerides Cholesterol LDL Cholesterol Direct HDL Cholesterol Urine pH Urine WBC (Auto) Urine Creatinine Urine Total Protein Fluid Total Protein Vancomycin Trough Rheumatoid Factor Complement C4 Miscellaneous Test Flexitest 1 H Crossmatch 10/13/16 10/13/16 10/13/16 18:09 Unknown Unknown WBC 23.4 H RBC 2.83 L Hgb 8.7 L Hct 26.1 L MCV MCH MCHC RDW 18.1 H Plt Count Lymph % (Auto) [place] % (Auto) Lymph # [place] # Baso # Seg Neutrophils % Seg Neuts % (Manual) Lymphocytes % (Manual) Monocytes % (Manual) Eosinophils % (Manual) Basophils % (Manual) Nucleated RBC % Seg Neutrophils # Seg Neutrophils # Man Lymphocytes # (Manual) Monocytes # (Manual) Eosinophils # (Manual) PT INR Fibrinogen dRVVT Confirm Interp Factor V Activity POC ABG pH POC ABG pCO2 POC ABG pO2 ABG pO2 ABG HCO3 ABG Base Excess ABG Hemoglobin Oxyhemoglobin Sodium Potassium Chloride 95.8 L Carbon Dioxide BUN 82 H Creatinine 2.6 H Glucose 152 H POC Glucose 166 H Lactic Acid Calcium Phosphorus Magnesium Direct Bilirubin AST ALT Alkaline Phosphatase Lactate Dehydrogenase Troponin T C-Reactive Protein Total Protein Albumin Prealbumin Triglycerides Cholesterol LDL Cholesterol Direct HDL Cholesterol Urine pH Urine WBC (Auto) Urine Creatinine Urine Total Protein Fluid Total Protein Vancomycin Trough Rheumatoid Factor Complement C4 Miscellaneous Test Crossmatch 10/14/16 10/14/16 10/14/16 05:38 06:35 08:10 WBC 20.7 H RBC 2.81 L Hgb 8.4 L Hct 27.2 L MCV MCH MCHC RDW 19.4 H Plt Count Lymph % (Auto) [place] % (Auto) Lymph # [place] # Baso # Seg Neutrophils % Seg Neuts % (Manual) Lymphocytes % (Manual) Monocytes % (Manual) Eosinophils % (Manual) Basophils % (Manual) Nucleated RBC % Seg Neutrophils # Seg Neutrophils # Man Lymphocytes # (Manual) Monocytes # (Manual) Eosinophils # (Manual) PT INR Fibrinogen dRVVT Confirm Interp Factor V Activity POC ABG pH POC ABG pCO2 POC ABG pO2 ABG pO2 ABG HCO3 ABG Base Excess ABG Hemoglobin Oxyhemoglobin Sodium Potassium Chloride Carbon Dioxide BUN 58 H Creatinine 1.9 H Glucose 169 H POC Glucose 195 H Lactic Acid Calcium Phosphorus Magnesium Direct Bilirubin AST ALT Alkaline Phosphatase Lactate Dehydrogenase Troponin T C-Reactive Protein Total Protein Albumin Prealbumin Triglycerides Cholesterol LDL Cholesterol Direct HDL Cholesterol Urine pH Urine WBC (Auto) Urine Creatinine Urine Total Protein Fluid Total Protein Vancomycin Trough Rheumatoid Factor Complement C4 Miscellaneous Test Crossmatch 10/14/16 10/14/16 10/14/16 11:44 17:13 23:28 WBC RBC Hgb Hct MCV MCH MCHC RDW Plt Count Lymph % (Auto) [place] % (Auto) Lymph # [place] # Baso # Seg Neutrophils % Seg Neuts % (Manual) Lymphocytes % (Manual) Monocytes % (Manual) Eosinophils % (Manual) Basophils % (Manual) Nucleated RBC % Seg Neutrophils # Seg Neutrophils # Man Lymphocytes # (Manual) Monocytes # (Manual) Eosinophils # (Manual) PT INR Fibrinogen dRVVT Confirm Interp Factor V Activity POC ABG pH POC ABG pCO2 POC ABG pO2 ABG pO2 ABG HCO3 ABG Base Excess ABG Hemoglobin Oxyhemoglobin Sodium Potassium Chloride Carbon Dioxide BUN Creatinine Glucose POC Glucose 174 H 121 H 151 H Lactic Acid Calcium Phosphorus Magnesium Direct Bilirubin AST ALT Alkaline Phosphatase Lactate Dehydrogenase Troponin T C-Reactive Protein Total Protein Albumin Prealbumin Triglycerides Cholesterol LDL Cholesterol Direct HDL Cholesterol Urine pH Urine WBC (Auto) Urine Creatinine Urine Total Protein Fluid Total Protein Vancomycin Trough Rheumatoid Factor Complement C4 Miscellaneous Test Crossmatch 10/15/16 10/15/16 10/15/16 05:06 12:26 17:48 WBC RBC Hgb Hct MCV MCH MCHC RDW Plt Count Lymph % (Auto) [place] % (Auto) Lymph # [place] # Baso # Seg Neutrophils % Seg Neuts % (Manual) Lymphocytes % (Manual) Monocytes % (Manual) Eosinophils % (Manual) Basophils % (Manual) Nucleated RBC % Seg Neutrophils # Seg Neutrophils # Man Lymphocytes # (Manual) Monocytes # (Manual) Eosinophils # (Manual) PT INR Fibrinogen dRVVT Confirm Interp Factor V Activity POC ABG pH POC ABG pCO2 POC ABG pO2 ABG pO2 ABG HCO3 ABG Base Excess ABG Hemoglobin Oxyhemoglobin Sodium Potassium Chloride Carbon Dioxide BUN Creatinine Glucose POC Glucose 151 H 149 H 153 H Lactic Acid Calcium Phosphorus Magnesium Direct Bilirubin AST ALT Alkaline Phosphatase Lactate Dehydrogenase Troponin T C-Reactive Protein Total Protein Albumin Prealbumin Triglycerides Cholesterol LDL Cholesterol Direct HDL Cholesterol Urine pH Urine WBC (Auto) Urine Creatinine Urine Total Protein Fluid Total Protein Vancomycin Trough Rheumatoid Factor Complement C4 Miscellaneous Test Crossmatch 10/15/16 10/15/16 10/16/16 Unknown Unknown 00:02 WBC 23.4 H RBC 2.78 L Hgb 8.5 L Hct 25.7 L MCV MCH MCHC RDW 18.7 H Plt Count Lymph % (Auto) [place] % (Auto) Lymph # [place] # Baso # Seg Neutrophils % Seg Neuts % (Manual) Lymphocytes % (Manual) Monocytes % (Manual) Eosinophils % (Manual) Basophils % (Manual) Nucleated RBC % Seg Neutrophils # Seg Neutrophils # Man Lymphocytes # (Manual) Monocytes # (Manual) Eosinophils # (Manual) PT INR Fibrinogen dRVVT Confirm Interp Factor V Activity POC ABG pH POC ABG pCO2 POC ABG pO2 ABG pO2 ABG HCO3 ABG Base Excess ABG Hemoglobin Oxyhemoglobin Sodium Potassium Chloride Carbon Dioxide BUN 73 H Creatinine 2.3 H Glucose 120 H POC Glucose 137 H Lactic Acid Calcium Phosphorus Magnesium Direct Bilirubin AST ALT Alkaline Phosphatase Lactate Dehydrogenase Troponin T C-Reactive Protein Total Protein Albumin Prealbumin Triglycerides Cholesterol LDL Cholesterol Direct HDL Cholesterol Urine pH Urine WBC (Auto) Urine Creatinine Urine Total Protein Fluid Total Protein Vancomycin Trough Rheumatoid Factor Complement C4 Miscellaneous Test Crossmatch 10/16/16 10/16/16 10/16/16 05:44 06:25 06:25 WBC 22.5 H RBC 2.76 L Hgb 8.3 L Hct 25.2 L MCV MCH MCHC RDW 18.3 H Plt Count Lymph % (Auto) [place] % (Auto) Lymph # [place] # Baso # Seg Neutrophils % Seg Neuts % (Manual) Lymphocytes % (Manual) Monocytes % (Manual) Eosinophils % (Manual) Basophils % (Manual) Nucleated RBC % Seg Neutrophils # Seg Neutrophils # Man Lymphocytes # (Manual) Monocytes # (Manual) Eosinophils # (Manual) PT INR Fibrinogen dRVVT Confirm Interp Factor V Activity POC ABG pH POC ABG pCO2 POC ABG pO2 ABG pO2 ABG HCO3 ABG Base Excess ABG Hemoglobin Oxyhemoglobin Sodium Potassium Chloride Carbon Dioxide BUN 92 H Creatinine 3.0 H Glucose 138 H POC Glucose 110 H Lactic Acid Calcium Phosphorus Magnesium Direct Bilirubin AST ALT Alkaline Phosphatase Lactate Dehydrogenase Troponin T C-Reactive Protein Total Protein Albumin Prealbumin Triglycerides Cholesterol LDL Cholesterol Direct HDL Cholesterol Urine pH Urine WBC (Auto) Urine Creatinine Urine Total Protein Fluid Total Protein Vancomycin Trough Rheumatoid Factor Complement C4 Miscellaneous Test Crossmatch 10/16/16 10/16/16 10/16/16 11:27 11:48 17:36 WBC RBC Hgb Hct MCV MCH MCHC RDW Plt Count Lymph % (Auto) [place] % (Auto) Lymph # [place] # Baso # Seg Neutrophils % Seg Neuts % (Manual) Lymphocytes % (Manual) Monocytes % (Manual) Eosinophils % (Manual) Basophils % (Manual) Nucleated RBC % Seg Neutrophils # Seg Neutrophils # Man Lymphocytes # (Manual) Monocytes # (Manual) Eosinophils # (Manual) PT INR Fibrinogen dRVVT Confirm Interp Factor V Activity POC ABG pH 7.582 H POC ABG pCO2 27.4 L POC ABG pO2 110 H ABG pO2 ABG HCO3 ABG Base Excess ABG Hemoglobin Oxyhemoglobin Sodium Potassium Chloride Carbon Dioxide BUN Creatinine Glucose POC Glucose 121 H 133 H Lactic Acid Calcium Phosphorus Magnesium Direct Bilirubin AST ALT Alkaline Phosphatase Lactate Dehydrogenase Troponin T C-Reactive Protein Total Protein Albumin Prealbumin Triglycerides Cholesterol LDL Cholesterol Direct HDL Cholesterol Urine pH Urine WBC (Auto) Urine Creatinine Urine Total Protein Fluid Total Protein Vancomycin Trough Rheumatoid Factor Complement C4 Miscellaneous Test Crossmatch 10/16/16 10/17/16 10/17/16 20:48 04:24 04:24 WBC 21.4 H RBC 2.72 L Hgb 8.0 L Hct 25.2 L MCV MCH MCHC RDW 18.0 H Plt Count Lymph % (Auto) [place] % (Auto) Lymph # [place] # Baso # Seg Neutrophils % Seg Neuts % (Manual) Lymphocytes % (Manual) Monocytes % (Manual) Eosinophils % (Manual) Basophils % (Manual) Nucleated RBC % Seg Neutrophils # Seg Neutrophils # Man Lymphocytes # (Manual) Monocytes # (Manual) Eosinophils # (Manual) PT INR Fibrinogen dRVVT Confirm Interp Factor V Activity POC ABG pH 7.561 H POC ABG pCO2 24.4 L POC ABG pO2 77 L ABG pO2 ABG HCO3 ABG Base Excess ABG Hemoglobin Oxyhemoglobin Sodium 148 H Potassium Chloride Carbon Dioxide BUN 104 H Creatinine 3.0 H Glucose 149 H POC Glucose Lactic Acid Calcium Phosphorus Magnesium Direct Bilirubin AST ALT Alkaline Phosphatase 138 H Lactate Dehydrogenase Troponin T C-Reactive Protein Total Protein 6.2 L Albumin 1.5 L Prealbumin Triglycerides Cholesterol LDL Cholesterol Direct HDL Cholesterol Urine pH Urine WBC (Auto) Urine Creatinine Urine Total Protein Fluid Total Protein Vancomycin Trough Rheumatoid Factor Complement C4 Miscellaneous Test Crossmatch 10/17/16 10/17/16 10/17/16 06:02 12:17 17:14 WBC RBC Hgb Hct MCV MCH MCHC RDW Plt Count Lymph % (Auto) [place] % (Auto) Lymph # [place] # Baso # Seg Neutrophils % Seg Neuts % (Manual) Lymphocytes % (Manual) Monocytes % (Manual) Eosinophils % (Manual) Basophils % (Manual) Nucleated RBC % Seg Neutrophils # Seg Neutrophils # Man Lymphocytes # (Manual) Monocytes # (Manual) Eosinophils # (Manual) PT INR Fibrinogen dRVVT Confirm Interp Factor V Activity POC ABG pH POC ABG pCO2 POC ABG pO2 ABG pO2 ABG HCO3 ABG Base Excess ABG Hemoglobin Oxyhemoglobin Sodium Potassium Chloride Carbon Dioxide BUN Creatinine Glucose POC Glucose 170 H 167 H 126 H Lactic Acid Calcium Phosphorus Magnesium Direct Bilirubin AST ALT Alkaline Phosphatase Lactate Dehydrogenase Troponin T C-Reactive Protein Total Protein Albumin Prealbumin Triglycerides Cholesterol LDL Cholesterol Direct HDL Cholesterol Urine pH Urine WBC (Auto) Urine Creatinine Urine Total Protein Fluid Total Protein Vancomycin Trough Rheumatoid Factor Complement C4 Miscellaneous Test Crossmatch 10/17/16 10/18/16 10/18/16 23:17 04:00 04:00 WBC 20.7 H RBC 2.47 L Hgb 7.4 L Hct 22.9 L MCV MCH MCHC RDW 17.5 H Plt Count Lymph % (Auto) [place] % (Auto) Lymph # [place] # Baso # Seg Neutrophils % Seg Neuts % (Manual) Lymphocytes % (Manual) Monocytes % (Manual) Eosinophils % (Manual) Basophils % (Manual) Nucleated RBC % Seg Neutrophils # Seg Neutrophils # Man Lymphocytes # (Manual) Monocytes # (Manual) Eosinophils # (Manual) PT INR Fibrinogen dRVVT Confirm Interp Factor V Activity POC ABG pH POC ABG pCO2 POC ABG pO2 ABG pO2 ABG HCO3 ABG Base Excess ABG Hemoglobin Oxyhemoglobin Sodium 149 H Potassium Chloride 107.9 H Carbon Dioxide 20 L BUN 117 H Creatinine 3.2 H Glucose 119 H POC Glucose 121 H Lactic Acid Calcium Phosphorus Magnesium Direct Bilirubin AST ALT Alkaline Phosphatase Lactate Dehydrogenase Troponin T C-Reactive Protein Total Protein Albumin Prealbumin Triglycerides Cholesterol LDL Cholesterol Direct HDL Cholesterol Urine pH Urine WBC (Auto) Urine Creatinine Urine Total Protein Fluid Total Protein Vancomycin Trough Rheumatoid Factor Complement C4 Miscellaneous Test Crossmatch 10/18/16 10/18/16 10/18/16 05:23 10:46 17:30 WBC RBC Hgb Hct MCV MCH MCHC RDW Plt Count Lymph % (Auto) [place] % (Auto) Lymph # [place] # Baso # Seg Neutrophils % Seg Neuts % (Manual) Lymphocytes % (Manual) Monocytes % (Manual) Eosinophils % (Manual) Basophils % (Manual) Nucleated RBC % Seg Neutrophils # Seg Neutrophils # Man Lymphocytes # (Manual) Monocytes # (Manual) Eosinophils # (Manual) PT INR Fibrinogen dRVVT Confirm Interp Factor V Activity POC ABG pH POC ABG pCO2 POC ABG pO2 ABG pO2 ABG HCO3 ABG Base Excess ABG Hemoglobin Oxyhemoglobin Sodium Potassium Chloride Carbon Dioxide BUN Creatinine Glucose POC Glucose 119 H 155 H 124 H Lactic Acid Calcium Phosphorus Magnesium Direct Bilirubin AST ALT Alkaline Phosphatase Lactate Dehydrogenase Troponin T C-Reactive Protein Total Protein Albumin Prealbumin Triglycerides Cholesterol LDL Cholesterol Direct HDL Cholesterol Urine pH Urine WBC (Auto) Urine Creatinine Urine Total Protein Fluid Total Protein Vancomycin Trough Rheumatoid Factor Complement C4 Miscellaneous Test Crossmatch 10/19/16 10/19/16 10/19/16 04:00 04:00 05:25 WBC 17.4 H RBC 2.54 L Hgb 7.7 L Hct 23.6 L MCV MCH MCHC RDW 17.3 H Plt Count Lymph % (Auto) [place] % (Auto) Lymph # [place] # Baso # Seg Neutrophils % Seg Neuts % (Manual) Lymphocytes % (Manual) Monocytes % (Manual) Eosinophils % (Manual) Basophils % (Manual) Nucleated RBC % Seg Neutrophils # Seg Neutrophils # Man Lymphocytes # (Manual) Monocytes # (Manual) Eosinophils # (Manual) PT INR Fibrinogen dRVVT Confirm Interp Factor V Activity POC ABG pH POC ABG pCO2 POC ABG pO2 ABG pO2 ABG HCO3 ABG Base Excess ABG Hemoglobin Oxyhemoglobin Sodium Potassium Chloride Carbon Dioxide BUN 72 H Creatinine 2.1 H Glucose 116 H POC Glucose 119 H Lactic Acid Calcium Phosphorus Magnesium Direct Bilirubin AST ALT Alkaline Phosphatase Lactate Dehydrogenase Troponin T C-Reactive Protein Total Protein Albumin Prealbumin Triglycerides Cholesterol LDL Cholesterol Direct HDL Cholesterol Urine pH Urine WBC (Auto) Urine Creatinine Urine Total Protein Fluid Total Protein Vancomycin Trough Rheumatoid Factor Complement C4 Miscellaneous Test Crossmatch 10/19/16 10/19/16 10/20/16 11:46 23:59 06:00 WBC RBC Hgb Hct MCV MCH MCHC RDW Plt Count Lymph % (Auto) [place] % (Auto) Lymph # [place] # Baso # Seg Neutrophils % Seg Neuts % (Manual) Lymphocytes % (Manual) Monocytes % (Manual) Eosinophils % (Manual) Basophils % (Manual) Nucleated RBC % Seg Neutrophils # Seg Neutrophils # Man Lymphocytes # (Manual) Monocytes # (Manual) Eosinophils # (Manual) PT INR Fibrinogen dRVVT Confirm Interp Factor V Activity POC ABG pH POC ABG pCO2 POC ABG pO2 ABG pO2 ABG HCO3 ABG Base Excess ABG Hemoglobin Oxyhemoglobin Sodium Potassium Chloride Carbon Dioxide 17 L BUN 94 H Creatinine 2.7 H Glucose POC Glucose 116 H 117 H Lactic Acid Calcium Phosphorus Magnesium Direct Bilirubin AST ALT Alkaline Phosphatase Lactate Dehydrogenase Troponin T C-Reactive Protein Total Protein Albumin Prealbumin Triglycerides Cholesterol LDL Cholesterol Direct HDL Cholesterol Urine pH Urine WBC (Auto) Urine Creatinine Urine Total Protein Fluid Total Protein Vancomycin Trough Rheumatoid Factor Complement C4 Miscellaneous Test Crossmatch 10/20/16 10/20/16 10/20/16 06:00 11:49 16:00 WBC 19.7 H RBC 2.51 L Hgb 7.7 L Hct 23.5 L MCV MCH MCHC RDW 17.5 H Plt Count Lymph % (Auto) [place] % (Auto) Lymph # [place] # Baso # Seg Neutrophils % Seg Neuts % (Manual) Lymphocytes % (Manual) Monocytes % (Manual) Eosinophils % (Manual) Basophils % (Manual) Nucleated RBC % Seg Neutrophils # Seg Neutrophils # Man Lymphocytes # (Manual) Monocytes # (Manual) Eosinophils # (Manual) PT INR Fibrinogen dRVVT Confirm Interp Factor V Activity POC ABG pH POC ABG pCO2 POC ABG pO2 ABG pO2 ABG HCO3 ABG Base Excess ABG Hemoglobin Oxyhemoglobin Sodium Potassium Chloride Carbon Dioxide BUN Creatinine Glucose POC Glucose 117 H Lactic Acid Calcium Phosphorus Magnesium Direct Bilirubin AST ALT Alkaline Phosphatase Lactate Dehydrogenase Troponin T C-Reactive Protein Total Protein Albumin Prealbumin Triglycerides Cholesterol LDL Cholesterol Direct HDL Cholesterol Urine pH Urine WBC (Auto) Urine Creatinine Urine Total Protein Fluid Total Protein Vancomycin Trough Rheumatoid Factor Complement C4 Miscellaneous Test Flexitest 1 H Crossmatch 10/20/16 10/20/16 10/21/16 18:36 23:39 04:00 WBC RBC Hgb Hct MCV MCH MCHC RDW Plt Count Lymph % (Auto) [place] % (Auto) Lymph # [place] # Baso # Seg Neutrophils % Seg Neuts % (Manual) Lymphocytes % (Manual) Monocytes % (Manual) Eosinophils % (Manual) Basophils % (Manual) Nucleated RBC % Seg Neutrophils # Seg Neutrophils # Man Lymphocytes # (Manual) Monocytes # (Manual) Eosinophils # (Manual) PT INR Fibrinogen dRVVT Confirm Interp Factor V Activity POC ABG pH POC ABG pCO2 POC ABG pO2 ABG pO2 ABG HCO3 ABG Base Excess ABG Hemoglobin Oxyhemoglobin Sodium Potassium 5.4 H D Chloride Carbon Dioxide 15 L BUN 110 H Creatinine 3.0 H Glucose POC Glucose 127 H 114 H Lactic Acid Calcium Phosphorus Magnesium Direct Bilirubin AST ALT Alkaline Phosphatase Lactate Dehydrogenase Troponin T C-Reactive Protein Total Protein Albumin Prealbumin Triglycerides Cholesterol LDL Cholesterol Direct HDL Cholesterol Urine pH Urine WBC (Auto) Urine Creatinine Urine Total Protein Fluid Total Protein Vancomycin Trough Rheumatoid Factor Complement C4 Miscellaneous Test Crossmatch 10/21/16 10/21/16 10/22/16 05:54 23:46 05:18 WBC RBC Hgb Hct MCV MCH MCHC RDW Plt Count Lymph % (Auto) [place] % (Auto) Lymph # [place] # Baso # Seg Neutrophils % Seg Neuts % (Manual) Lymphocytes % (Manual) Monocytes % (Manual) Eosinophils % (Manual) Basophils % (Manual) Nucleated RBC % Seg Neutrophils # Seg Neutrophils # Man Lymphocytes # (Manual) Monocytes # (Manual) Eosinophils # (Manual) PT INR Fibrinogen dRVVT Confirm Interp Factor V Activity POC ABG pH POC ABG pCO2 POC ABG pO2 ABG pO2 ABG HCO3 ABG Base Excess ABG Hemoglobin Oxyhemoglobin Sodium Potassium Chloride Carbon Dioxide BUN Creatinine Glucose POC Glucose 119 H 108 H 109 H Lactic Acid Calcium Phosphorus Magnesium Direct Bilirubin AST ALT Alkaline Phosphatase Lactate Dehydrogenase Troponin T C-Reactive Protein Total Protein Albumin Prealbumin Triglycerides Cholesterol LDL Cholesterol Direct HDL Cholesterol Urine pH Urine WBC (Auto) Urine Creatinine Urine Total Protein Fluid Total Protein Vancomycin Trough Rheumatoid Factor Complement C4 Miscellaneous Test Crossmatch 10/22/16 10/22/16 10/22/16 06:40 06:40 06:40 WBC 14.0 H RBC 2.03 L Hgb 7.0 L Hct 20.5 L MCV 98 H MCH 34 H MCHC 35 H RDW 17.8 H Plt Count Lymph % (Auto) [place] % (Auto) 9.9 H Lymph # [place] # 1.4 H Baso # 0.2 H Seg Neutrophils % 72.0 H Seg Neuts % (Manual) Lymphocytes % (Manual) Monocytes % (Manual) Eosinophils % (Manual) Basophils % (Manual) Nucleated RBC % Seg Neutrophils # 10.0 H Seg Neutrophils # Man Lymphocytes # (Manual) Monocytes # (Manual) Eosinophils # (Manual) PT INR Fibrinogen dRVVT Confirm Interp Factor V Activity POC ABG pH POC ABG pCO2 POC ABG pO2 ABG pO2 ABG HCO3 ABG Base Excess ABG Hemoglobin Oxyhemoglobin Sodium 130 L D Potassium Chloride 92.4 L Carbon Dioxide 20 L BUN 50 H Creatinine 1.6 H Glucose 589 H* POC Glucose Lactic Acid Calcium 7.8 L D Phosphorus Magnesium 1.60 L Direct Bilirubin AST ALT Alkaline Phosphatase Lactate Dehydrogenase Troponin T C-Reactive Protein Total Protein Albumin Prealbumin Triglycerides Cholesterol LDL Cholesterol Direct HDL Cholesterol Urine pH Urine WBC (Auto) Urine Creatinine Urine Total Protein Fluid Total Protein Vancomycin Trough Rheumatoid Factor Complement C4 Miscellaneous Test Crossmatch 10/22/16 10/22/16 10/22/16 11:39 16:44 23:36 WBC RBC Hgb Hct MCV MCH MCHC RDW Plt Count Lymph % (Auto) [place] % (Auto) Lymph # [place] # Baso # Seg Neutrophils % Seg Neuts % (Manual) Lymphocytes % (Manual) Monocytes % (Manual) Eosinophils % (Manual) Basophils % (Manual) Nucleated RBC % Seg Neutrophils # Seg Neutrophils # Man Lymphocytes # (Manual) Monocytes # (Manual) Eosinophils # (Manual) PT INR Fibrinogen dRVVT Confirm Interp Factor V Activity POC ABG pH POC ABG pCO2 POC ABG pO2 ABG pO2 ABG HCO3 ABG Base Excess ABG Hemoglobin Oxyhemoglobin Sodium Potassium Chloride Carbon Dioxide BUN Creatinine Glucose POC Glucose 142 H 163 H 123 H Lactic Acid Calcium Phosphorus Magnesium Direct Bilirubin AST ALT Alkaline Phosphatase Lactate Dehydrogenase Troponin T C-Reactive Protein Total Protein Albumin Prealbumin Triglycerides Cholesterol LDL Cholesterol Direct HDL Cholesterol Urine pH Urine WBC (Auto) Urine Creatinine Urine Total Protein Fluid Total Protein Vancomycin Trough Rheumatoid Factor Complement C4 Miscellaneous Test Crossmatch 10/23/16 10/23/16 10/23/16 04:58 06:00 12:12 WBC RBC Hgb Hct MCV MCH MCHC RDW Plt Count Lymph % (Auto) [place] % (Auto) Lymph # [place] # Baso # Seg Neutrophils % Seg Neuts % (Manual) Lymphocytes % (Manual) Monocytes % (Manual) Eosinophils % (Manual) Basophils % (Manual) Nucleated RBC % Seg Neutrophils # Seg Neutrophils # Man Lymphocytes # (Manual) Monocytes # (Manual) Eosinophils # (Manual) PT INR Fibrinogen dRVVT Confirm Interp Factor V Activity POC ABG pH POC ABG pCO2 POC ABG pO2 ABG pO2 ABG HCO3 ABG Base Excess ABG Hemoglobin Oxyhemoglobin Sodium 133 L Potassium 3.5 L Chloride 96.1 L Carbon Dioxide 18 L BUN 76 H Creatinine 2.1 H Glucose POC Glucose 133 H 138 H Lactic Acid Calcium 8.3 L Phosphorus Magnesium Direct Bilirubin AST ALT Alkaline Phosphatase Lactate Dehydrogenase Troponin T C-Reactive Protein Total Protein Albumin Prealbumin Triglycerides Cholesterol LDL Cholesterol Direct HDL Cholesterol Urine pH Urine WBC (Auto) Urine Creatinine Urine Total Protein Fluid Total Protein Vancomycin Trough Rheumatoid Factor Complement C4 Miscellaneous Test Crossmatch 10/23/16 10/23/16 10/24/16 16:53 23:37 04:00 WBC RBC Hgb Hct MCV MCH MCHC RDW Plt Count Lymph % (Auto) [place] % (Auto) Lymph # [place] # Baso # Seg Neutrophils % Seg Neuts % (Manual) Lymphocytes % (Manual) Monocytes % (Manual) Eosinophils % (Manual) Basophils % (Manual) Nucleated RBC % Seg Neutrophils # Seg Neutrophils # Man Lymphocytes # (Manual) Monocytes # (Manual) Eosinophils # (Manual) PT INR Fibrinogen dRVVT Confirm Interp Factor V Activity POC ABG pH POC ABG pCO2 POC ABG pO2 ABG pO2 ABG HCO3 ABG Base Excess ABG Hemoglobin Oxyhemoglobin Sodium 131 L Potassium Chloride 94.5 L Carbon Dioxide 19 L BUN 97 H Creatinine 2.6 H Glucose 110 H POC Glucose 125 H 123 H Lactic Acid Calcium 8.3 L Phosphorus Magnesium Direct Bilirubin AST ALT Alkaline Phosphatase Lactate Dehydrogenase Troponin T C-Reactive Protein Total Protein Albumin Prealbumin Triglycerides Cholesterol LDL Cholesterol Direct HDL Cholesterol Urine pH Urine WBC (Auto) Urine Creatinine Urine Total Protein Fluid Total Protein Vancomycin Trough Rheumatoid Factor Complement C4 Miscellaneous Test Crossmatch 10/24/16 10/24/16 10/24/16 07:49 11:39 17:52 WBC RBC Hgb 6.0 L Hct 19.7 L* MCV MCH MCHC RDW Plt Count Lymph % (Auto) [place] % (Auto) Lymph # [place] # Baso # Seg Neutrophils % Seg Neuts % (Manual) Lymphocytes % (Manual) Monocytes % (Manual) Eosinophils % (Manual) Basophils % (Manual) Nucleated RBC % Seg Neutrophils # Seg Neutrophils # Man Lymphocytes # (Manual) Monocytes # (Manual) Eosinophils # (Manual) PT INR Fibrinogen dRVVT Confirm Interp Factor V Activity POC ABG pH POC ABG pCO2 POC ABG pO2 ABG pO2 ABG HCO3 ABG Base Excess ABG Hemoglobin Oxyhemoglobin Sodium Potassium Chloride Carbon Dioxide BUN Creatinine Glucose POC Glucose 106 H 158 H Lactic Acid Calcium Phosphorus Magnesium Direct Bilirubin AST ALT Alkaline Phosphatase Lactate Dehydrogenase Troponin T C-Reactive Protein Total Protein Albumin Prealbumin Triglycerides Cholesterol LDL Cholesterol Direct HDL Cholesterol Urine pH Urine WBC (Auto) Urine Creatinine Urine Total Protein Fluid Total Protein Vancomycin Trough Rheumatoid Factor Complement C4 Miscellaneous Test Crossmatch 10/24/16 10/24/16 10/24/16 20:00 22:27 Unknown WBC RBC Hgb 9.4 L D Hct 27.5 L D MCV MCH MCHC RDW Plt Count Lymph % (Auto) [place] % (Auto) Lymph # [place] # Baso # Seg Neutrophils % Seg Neuts % (Manual) Lymphocytes % (Manual) Monocytes % (Manual) Eosinophils % (Manual) Basophils % (Manual) Nucleated RBC % Seg Neutrophils # Seg Neutrophils # Man Lymphocytes # (Manual) Monocytes # (Manual) Eosinophils # (Manual) PT INR Fibrinogen dRVVT Confirm Interp Factor V Activity POC ABG pH POC ABG pCO2 POC ABG pO2 ABG pO2 ABG HCO3 ABG Base Excess ABG Hemoglobin Oxyhemoglobin Sodium Potassium Chloride Carbon Dioxide BUN Creatinine Glucose POC Glucose 125 H Lactic Acid Calcium Phosphorus Magnesium Direct Bilirubin AST ALT Alkaline Phosphatase Lactate Dehydrogenase Troponin T C-Reactive Protein Total Protein Albumin Prealbumin Triglycerides Cholesterol LDL Cholesterol Direct HDL Cholesterol Urine pH Urine WBC (Auto) Urine Creatinine Urine Total Protein Fluid Total Protein Vancomycin Trough Rheumatoid Factor Complement C4 Miscellaneous Test Crossmatch See Detail 10/25/16 10/25/16 10/25/16 04:00 04:00 04:00 WBC 14.2 H RBC 2.98 L Hgb 9.0 L Hct 26.2 L MCV MCH MCHC RDW 16.6 H Plt Count Lymph % (Auto) [place] % (Auto) 10.7 H Lymph # [place] # 1.5 H Baso # Seg Neutrophils % 73.6 H Seg Neuts % (Manual) Lymphocytes % (Manual) Monocytes % (Manual) Eosinophils % (Manual) Basophils % (Manual) Nucleated RBC % Seg Neutrophils # 10.5 H Seg Neutrophils # Man Lymphocytes # (Manual) Monocytes # (Manual) Eosinophils # (Manual) PT INR Fibrinogen dRVVT Confirm Interp Factor V Activity POC ABG pH POC ABG pCO2 POC ABG pO2 ABG pO2 ABG HCO3 ABG Base Excess ABG Hemoglobin Oxyhemoglobin Sodium 132 L Potassium Chloride 94.7 L Carbon Dioxide BUN 51 H Creatinine 1.6 H Glucose 130 H POC Glucose Lactic Acid Calcium 8.3 L Phosphorus 1.60 L D Magnesium Direct Bilirubin AST ALT Alkaline Phosphatase Lactate Dehydrogenase Troponin T C-Reactive Protein Total Protein Albumin Prealbumin Triglycerides Cholesterol LDL Cholesterol Direct HDL Cholesterol Urine pH Urine WBC (Auto) Urine Creatinine Urine Total Protein Fluid Total Protein Vancomycin Trough Rheumatoid Factor Complement C4 Miscellaneous Test Crossmatch 10/25/16 10/25/16 10/25/16 04:32 11:48 17:22 WBC RBC Hgb Hct MCV MCH MCHC RDW Plt Count Lymph % (Auto) [place] % (Auto) Lymph # [place] # Baso # Seg Neutrophils % Seg Neuts % (Manual) Lymphocytes % (Manual) Monocytes % (Manual) Eosinophils % (Manual) Basophils % (Manual) Nucleated RBC % Seg Neutrophils # Seg Neutrophils # Man Lymphocytes # (Manual) Monocytes # (Manual) Eosinophils # (Manual) PT INR Fibrinogen dRVVT Confirm Interp Factor V Activity POC ABG pH POC ABG pCO2 POC ABG pO2 ABG pO2 ABG HCO3 ABG Base Excess ABG Hemoglobin Oxyhemoglobin Sodium Potassium Chloride Carbon Dioxide BUN Creatinine Glucose POC Glucose 124 H 171 H 120 H Lactic Acid Calcium Phosphorus Magnesium Direct Bilirubin AST ALT Alkaline Phosphatase Lactate Dehydrogenase Troponin T C-Reactive Protein Total Protein Albumin Prealbumin Triglycerides Cholesterol LDL Cholesterol Direct HDL Cholesterol Urine pH Urine WBC (Auto) Urine Creatinine Urine Total Protein Fluid Total Protein Vancomycin Trough Rheumatoid Factor Complement C4 Miscellaneous Test Crossmatch 10/26/16 10/26/16 10/26/16 04:54 07:06 07:06 WBC 16.9 H RBC 3.06 L Hgb 9.1 L Hct 26.9 L MCV MCH MCHC RDW 16.9 H Plt Count Lymph % (Auto) [place] % (Auto) Lymph # [place] # Baso # Seg Neutrophils % Seg Neuts % (Manual) 71.0 H Lymphocytes % (Manual) 5.0 L Monocytes % (Manual) 12.0 H Eosinophils % (Manual) Basophils % (Manual) Nucleated RBC % Seg Neutrophils # Seg Neutrophils # Man 12.0 H Lymphocytes # (Manual) 0.8 L Monocytes # (Manual) 2.0 H Eosinophils # (Manual) PT INR Fibrinogen dRVVT Confirm Interp Factor V Activity POC ABG pH POC ABG pCO2 POC ABG pO2 ABG pO2 ABG HCO3 ABG Base Excess ABG Hemoglobin Oxyhemoglobin Sodium 135 L Potassium Chloride 97.1 L Carbon Dioxide BUN 73 H Creatinine 2.2 H Glucose 117 H POC Glucose 123 H Lactic Acid Calcium Phosphorus 1.70 L Magnesium Direct Bilirubin AST ALT Alkaline Phosphatase Lactate Dehydrogenase Troponin T C-Reactive Protein Total Protein Albumin Prealbumin Triglycerides Cholesterol LDL Cholesterol Direct HDL Cholesterol Urine pH Urine WBC (Auto) Urine Creatinine Urine Total Protein Fluid Total Protein Vancomycin Trough Rheumatoid Factor Complement C4 Miscellaneous Test Crossmatch 10/26/16 10/26/16 10/26/16 12:12 17:29 23:42 WBC RBC Hgb Hct MCV MCH MCHC RDW Plt Count Lymph % (Auto) [place] % (Auto) Lymph # [place] # Baso # Seg Neutrophils % Seg Neuts % (Manual) Lymphocytes % (Manual) Monocytes % (Manual) Eosinophils % (Manual) Basophils % (Manual) Nucleated RBC % Seg Neutrophils # Seg Neutrophils # Man Lymphocytes # (Manual) Monocytes # (Manual) Eosinophils # (Manual) PT INR Fibrinogen dRVVT Confirm Interp Factor V Activity POC ABG pH POC ABG pCO2 POC ABG pO2 ABG pO2 ABG HCO3 ABG Base Excess ABG Hemoglobin Oxyhemoglobin Sodium Potassium Chloride Carbon Dioxide BUN Creatinine Glucose POC Glucose 126 H 161 H 118 H Lactic Acid Calcium Phosphorus Magnesium Direct Bilirubin AST ALT Alkaline Phosphatase Lactate Dehydrogenase Troponin T C-Reactive Protein Total Protein Albumin Prealbumin Triglycerides Cholesterol LDL Cholesterol Direct HDL Cholesterol Urine pH Urine WBC (Auto) Urine Creatinine Urine Total Protein Fluid Total Protein Vancomycin Trough Rheumatoid Factor Complement C4 Miscellaneous Test Crossmatch 10/27/16 10/27/16 10/27/16 05:03 06:30 06:30 WBC 13.9 H RBC 3.09 L Hgb 9.2 L Hct 27.5 L MCV MCH MCHC RDW 17.0 H Plt Count Lymph % (Auto) [place] % (Auto) Lymph # [place] # Baso # Seg Neutrophils % Seg Neuts % (Manual) 78.0 H Lymphocytes % (Manual) Monocytes % (Manual) Eosinophils % (Manual) Basophils % (Manual) Nucleated RBC % 2.0 H Seg Neutrophils # Seg Neutrophils # Man 10.8 H Lymphocytes # (Manual) Monocytes # (Manual) 1.0 H Eosinophils # (Manual) PT INR Fibrinogen dRVVT Confirm Interp Factor V Activity POC ABG pH POC ABG pCO2 POC ABG pO2 ABG pO2 ABG HCO3 ABG Base Excess ABG Hemoglobin Oxyhemoglobin Sodium Potassium Chloride Carbon Dioxide BUN 40 H Creatinine 1.5 H Glucose 135 H POC Glucose 107 H Lactic Acid Calcium 8.3 L Phosphorus 1.30 L D Magnesium Direct Bilirubin AST ALT Alkaline Phosphatase Lactate Dehydrogenase Troponin T C-Reactive Protein Total Protein Albumin Prealbumin Triglycerides Cholesterol LDL Cholesterol Direct HDL Cholesterol Urine pH Urine WBC (Auto) Urine Creatinine Urine Total Protein Fluid Total Protein Vancomycin Trough Rheumatoid Factor Complement C4 Miscellaneous Test Crossmatch 10/27/16 10/27/16 10/27/16 13:27 18:07 23:40 WBC RBC Hgb Hct MCV MCH MCHC RDW Plt Count Lymph % (Auto) [place] % (Auto) Lymph # [place] # Baso # Seg Neutrophils % Seg Neuts % (Manual) Lymphocytes % (Manual) Monocytes % (Manual) Eosinophils % (Manual) Basophils % (Manual) Nucleated RBC % Seg Neutrophils # Seg Neutrophils # Man Lymphocytes # (Manual) Monocytes # (Manual) Eosinophils # (Manual) PT INR Fibrinogen dRVVT Confirm Interp Factor V Activity POC ABG pH POC ABG pCO2 POC ABG pO2 ABG pO2 ABG HCO3 ABG Base Excess ABG Hemoglobin Oxyhemoglobin Sodium Potassium Chloride Carbon Dioxide BUN Creatinine Glucose POC Glucose 117 H 121 H 118 H Lactic Acid Calcium Phosphorus Magnesium Direct Bilirubin AST ALT Alkaline Phosphatase Lactate Dehydrogenase Troponin T C-Reactive Protein Total Protein Albumin Prealbumin Triglycerides Cholesterol LDL Cholesterol Direct HDL Cholesterol Urine pH Urine WBC (Auto) Urine Creatinine Urine Total Protein Fluid Total Protein Vancomycin Trough Rheumatoid Factor Complement C4 Miscellaneous Test Crossmatch 10/28/16 10/28/16 10/28/16 05:48 06:45 06:45 WBC 14.7 H RBC 3.05 L Hgb 9.0 L Hct 26.9 L MCV MCH MCHC RDW 16.8 H Plt Count Lymph % (Auto) 8.2 L [place] % (Auto) 8.4 H Lymph # [place] # 1.2 H Baso # Seg Neutrophils % 81.9 H Seg Neuts % (Manual) Lymphocytes % (Manual) Monocytes % (Manual) Eosinophils % (Manual) Basophils % (Manual) Nucleated RBC % Seg Neutrophils # 12.1 H Seg Neutrophils # Man Lymphocytes # (Manual) Monocytes # (Manual) Eosinophils # (Manual) PT INR Fibrinogen dRVVT Confirm Interp Factor V Activity POC ABG pH POC ABG pCO2 POC ABG pO2 ABG pO2 ABG HCO3 ABG Base Excess ABG Hemoglobin Oxyhemoglobin Sodium Potassium Chloride Carbon Dioxide BUN 60 H Creatinine 1.9 H Glucose 120 H POC Glucose 114 H Lactic Acid Calcium Phosphorus Magnesium Direct Bilirubin AST ALT Alkaline Phosphatase Lactate Dehydrogenase Troponin T C-Reactive Protein Total Protein Albumin Prealbumin Triglycerides Cholesterol LDL Cholesterol Direct HDL Cholesterol Urine pH Urine WBC (Auto) Urine Creatinine Urine Total Protein Fluid Total Protein Vancomycin Trough Rheumatoid Factor Complement C4 Miscellaneous Test Crossmatch 10/28/16 10/28/16 10/29/16 17:08 23:50 05:10 WBC RBC Hgb Hct MCV MCH MCHC RDW Plt Count Lymph % (Auto) [place] % (Auto) Lymph # [place] # Baso # Seg Neutrophils % Seg Neuts % (Manual) Lymphocytes % (Manual) Monocytes % (Manual) Eosinophils % (Manual) Basophils % (Manual) Nucleated RBC % Seg Neutrophils # Seg Neutrophils # Man Lymphocytes # (Manual) Monocytes # (Manual) Eosinophils # (Manual) PT INR Fibrinogen dRVVT Confirm Interp Factor V Activity POC ABG pH POC ABG pCO2 POC ABG pO2 ABG pO2 ABG HCO3 ABG Base Excess ABG Hemoglobin Oxyhemoglobin Sodium Potassium Chloride Carbon Dioxide BUN Creatinine Glucose POC Glucose 109 H 110 H 124 H Lactic Acid Calcium Phosphorus Magnesium Direct Bilirubin AST ALT Alkaline Phosphatase Lactate Dehydrogenase Troponin T C-Reactive Protein Total Protein Albumin Prealbumin Triglycerides Cholesterol LDL Cholesterol Direct HDL Cholesterol Urine pH Urine WBC (Auto) Urine Creatinine Urine Total Protein Fluid Total Protein Vancomycin Trough Rheumatoid Factor Complement C4 Miscellaneous Test Crossmatch 10/29/16 10/29/16 10/29/16 07:45 07:45 12:19 WBC 14.7 H RBC 3.15 L Hgb 9.3 L Hct 28.9 L MCV MCH MCHC RDW 17.0 H Plt Count Lymph % (Auto) 11.9 L [place] % (Auto) 8.6 H Lymph # [place] # 1.3 H Baso # Seg Neutrophils % 78.1 H Seg Neuts % (Manual) Lymphocytes % (Manual) Monocytes % (Manual) Eosinophils % (Manual) Basophils % (Manual) Nucleated RBC % Seg Neutrophils # 11.4 H Seg Neutrophils # Man Lymphocytes # (Manual) Monocytes # (Manual) Eosinophils # (Manual) PT INR Fibrinogen dRVVT Confirm Interp Factor V Activity POC ABG pH POC ABG pCO2 POC ABG pO2 ABG pO2 ABG HCO3 ABG Base Excess ABG Hemoglobin Oxyhemoglobin Sodium Potassium 5.1 H Chloride Carbon Dioxide 19 L BUN 78 H Creatinine 2.2 H Glucose 116 H POC Glucose 118 H Lactic Acid Calcium Phosphorus Magnesium Direct Bilirubin AST ALT Alkaline Phosphatase Lactate Dehydrogenase Troponin T C-Reactive Protein Total Protein Albumin Prealbumin Triglycerides Cholesterol LDL Cholesterol Direct HDL Cholesterol Urine pH Urine WBC (Auto) Urine Creatinine Urine Total Protein Fluid Total Protein Vancomycin Trough Rheumatoid Factor Complement C4 Miscellaneous Test Crossmatch 10/29/16 10/30/16 10/30/16 17:49 01:52 03:28 WBC RBC Hgb Hct MCV MCH MCHC RDW Plt Count Lymph % (Auto) [place] % (Auto) Lymph # [place] # Baso # Seg Neutrophils % Seg Neuts % (Manual) Lymphocytes % (Manual) Monocytes % (Manual) Eosinophils % (Manual) Basophils % (Manual) Nucleated RBC % Seg Neutrophils # Seg Neutrophils # Man Lymphocytes # (Manual) Monocytes # (Manual) Eosinophils # (Manual) PT INR Fibrinogen dRVVT Confirm Interp Factor V Activity POC ABG pH POC ABG pCO2 POC ABG pO2 ABG pO2 ABG HCO3 ABG Base Excess ABG Hemoglobin Oxyhemoglobin Sodium Potassium 5.4 H Chloride 97.5 L Carbon Dioxide 19 L BUN 90 H Creatinine 2.5 H Glucose POC Glucose 120 H 129 H Lactic Acid Calcium Phosphorus 5.20 H Magnesium Direct Bilirubin AST ALT Alkaline Phosphatase Lactate Dehydrogenase Troponin T C-Reactive Protein Total Protein Albumin Prealbumin Triglycerides Cholesterol LDL Cholesterol Direct HDL Cholesterol Urine pH Urine WBC (Auto) Urine Creatinine Urine Total Protein Fluid Total Protein Vancomycin Trough Rheumatoid Factor Complement C4 Miscellaneous Test Crossmatch 10/30/16 10/30/16 10/30/16 03:28 08:19 08:19 WBC 11.6 H 15.9 H RBC 2.75 L 2.82 L Hgb 7.9 L 8.3 L Hct 24.2 L 25.2 L MCV MCH MCHC RDW 16.7 H 17.2 H Plt Count Lymph % (Auto) [place] % (Auto) 9.8 H Lymph # [place] # 1.1 H Baso # Seg Neutrophils % 74.2 H Seg Neuts % (Manual) Lymphocytes % (Manual) Monocytes % (Manual) Eosinophils % (Manual) Basophils % (Manual) Nucleated RBC % Seg Neutrophils # 8.6 H Seg Neutrophils # Man Lymphocytes # (Manual) Monocytes # (Manual) Eosinophils # (Manual) PT INR Fibrinogen dRVVT Confirm Interp Factor V Activity POC ABG pH POC ABG pCO2 POC ABG pO2 ABG pO2 ABG HCO3 ABG Base Excess ABG Hemoglobin Oxyhemoglobin Sodium Potassium 5.3 H Chloride 97.4 L Carbon Dioxide 19 L BUN 93 H Creatinine 2.6 H Glucose POC Glucose Lactic Acid Calcium Phosphorus Magnesium Direct Bilirubin AST ALT Alkaline Phosphatase Lactate Dehydrogenase Troponin T C-Reactive Protein Total Protein Albumin Prealbumin Triglycerides Cholesterol LDL Cholesterol Direct HDL Cholesterol Urine pH Urine WBC (Auto) Urine Creatinine Urine Total Protein Fluid Total Protein Vancomycin Trough Rheumatoid Factor Complement C4 Miscellaneous Test Crossmatch 10/30/16 10/30/16 10/31/16 17:11 23:56 00:40 WBC RBC Hgb Hct MCV MCH MCHC RDW Plt Count Lymph % (Auto) [place] % (Auto) Lymph # [place] # Baso # Seg Neutrophils % Seg Neuts % (Manual) Lymphocytes % (Manual) Monocytes % (Manual) Eosinophils % (Manual) Basophils % (Manual) Nucleated RBC % Seg Neutrophils # Seg Neutrophils # Man Lymphocytes # (Manual) Monocytes # (Manual) Eosinophils # (Manual) PT INR Fibrinogen dRVVT Confirm Interp Factor V Activity POC ABG pH POC ABG pCO2 POC ABG pO2 ABG pO2 ABG HCO3 ABG Base Excess ABG Hemoglobin Oxyhemoglobin Sodium Potassium Chloride Carbon Dioxide BUN Creatinine Glucose POC Glucose 106 H 117 H 120 H Lactic Acid Calcium Phosphorus Magnesium Direct Bilirubin AST ALT Alkaline Phosphatase Lactate Dehydrogenase Troponin T C-Reactive Protein Total Protein Albumin Prealbumin Triglycerides Cholesterol LDL Cholesterol Direct HDL Cholesterol Urine pH Urine WBC (Auto) Urine Creatinine Urine Total Protein Fluid Total Protein Vancomycin Trough Rheumatoid Factor Complement C4 Miscellaneous Test Crossmatch 10/31/16 10/31/16 10/31/16 05:43 07:15 07:15 WBC 12.1 H RBC 2.63 L Hgb 7.7 L Hct 23.3 L MCV MCH MCHC RDW 16.7 H Plt Count Lymph % (Auto) 11.7 L [place] % (Auto) 7.7 H Lymph # [place] # 0.9 H Baso # Seg Neutrophils % 78.0 H Seg Neuts % (Manual) Lymphocytes % (Manual) Monocytes % (Manual) Eosinophils % (Manual) Basophils % (Manual) Nucleated RBC % Seg Neutrophils # 9.4 H Seg Neutrophils # Man Lymphocytes # (Manual) Monocytes # (Manual) Eosinophils # (Manual) PT INR Fibrinogen dRVVT Confirm Interp Factor V Activity POC ABG pH POC ABG pCO2 POC ABG pO2 ABG pO2 ABG HCO3 ABG Base Excess ABG Hemoglobin Oxyhemoglobin Sodium Potassium Chloride 96.4 L Carbon Dioxide 21 L BUN 99 H Creatinine 2.6 H Glucose 144 H POC Glucose 125 H Lactic Acid Calcium Phosphorus 4.80 H Magnesium Direct Bilirubin AST ALT Alkaline Phosphatase Lactate Dehydrogenase Troponin T C-Reactive Protein Total Protein Albumin Prealbumin Triglycerides Cholesterol LDL Cholesterol Direct HDL Cholesterol Urine pH Urine WBC (Auto) Urine Creatinine Urine Total Protein Fluid Total Protein Vancomycin Trough Rheumatoid Factor Complement C4 Miscellaneous Test Crossmatch 10/31/16 10/31/16 11/01/16 11:46 18:34 00:20 WBC RBC Hgb Hct MCV MCH MCHC RDW Plt Count Lymph % (Auto) [place] % (Auto) Lymph # [place] # Baso # Seg Neutrophils % Seg Neuts % (Manual) Lymphocytes % (Manual) Monocytes % (Manual) Eosinophils % (Manual) Basophils % (Manual) Nucleated RBC % Seg Neutrophils # Seg Neutrophils # Man Lymphocytes # (Manual) Monocytes # (Manual) Eosinophils # (Manual) PT INR Fibrinogen dRVVT Confirm Interp Factor V Activity POC ABG pH POC ABG pCO2 POC ABG pO2 ABG pO2 ABG HCO3 ABG Base Excess ABG Hemoglobin Oxyhemoglobin Sodium Potassium Chloride Carbon Dioxide BUN Creatinine Glucose POC Glucose 159 H 140 H 132 H Lactic Acid Calcium Phosphorus Magnesium Direct Bilirubin AST ALT Alkaline Phosphatase Lactate Dehydrogenase Troponin T C-Reactive Protein Total Protein Albumin Prealbumin Triglycerides Cholesterol LDL Cholesterol Direct HDL Cholesterol Urine pH Urine WBC (Auto) Urine Creatinine Urine Total Protein Fluid Total Protein Vancomycin Trough Rheumatoid Factor Complement C4 Miscellaneous Test Crossmatch 11/01/16 11/01/16 11/01/16 04:55 04:55 06:11 WBC 11.2 H RBC 2.68 L Hgb 7.5 L Hct 23.7 L MCV MCH MCHC RDW 16.1 H Plt Count Lymph % (Auto) [place] % (Auto) 9.8 H Lymph # [place] # 1.1 H Baso # Seg Neutrophils % 70.8 H Seg Neuts % (Manual) Lymphocytes % (Manual) Monocytes % (Manual) Eosinophils % (Manual) Basophils % (Manual) Nucleated RBC % Seg Neutrophils # 7.9 H Seg Neutrophils # Man Lymphocytes # (Manual) Monocytes # (Manual) Eosinophils # (Manual) PT INR Fibrinogen dRVVT Confirm Interp Factor V Activity POC ABG pH POC ABG pCO2 POC ABG pO2 ABG pO2 ABG HCO3 ABG Base Excess ABG Hemoglobin Oxyhemoglobin Sodium Potassium 3.3 L D Chloride Carbon Dioxide BUN 61 H Creatinine 1.9 H Glucose 114 H POC Glucose 115 H Lactic Acid Calcium Phosphorus 1.80 L D Magnesium Direct Bilirubin AST ALT Alkaline Phosphatase Lactate Dehydrogenase Troponin T C-Reactive Protein Total Protein Albumin Prealbumin Triglycerides Cholesterol LDL Cholesterol Direct HDL Cholesterol Urine pH Urine WBC (Auto) Urine Creatinine Urine Total Protein Fluid Total Protein Vancomycin Trough Rheumatoid Factor Complement C4 Miscellaneous Test Crossmatch 11/01/16 11/01/16 11/01/16 12:29 18:23 23:58 WBC RBC Hgb Hct MCV MCH MCHC RDW Plt Count Lymph % (Auto) [place] % (Auto) Lymph # [place] # Baso # Seg Neutrophils % Seg Neuts % (Manual) Lymphocytes % (Manual) Monocytes % (Manual) Eosinophils % (Manual) Basophils % (Manual) Nucleated RBC % Seg Neutrophils # Seg Neutrophils # Man Lymphocytes # (Manual) Monocytes # (Manual) Eosinophils # (Manual) PT INR Fibrinogen dRVVT Confirm Interp Factor V Activity POC ABG pH POC ABG pCO2 POC ABG pO2 ABG pO2 ABG HCO3 ABG Base Excess ABG Hemoglobin Oxyhemoglobin Sodium Potassium Chloride Carbon Dioxide BUN Creatinine Glucose POC Glucose 142 H 143 H 128 H Lactic Acid Calcium Phosphorus Magnesium Direct Bilirubin AST ALT Alkaline Phosphatase Lactate Dehydrogenase Troponin T C-Reactive Protein Total Protein Albumin Prealbumin Triglycerides Cholesterol LDL Cholesterol Direct HDL Cholesterol Urine pH Urine WBC (Auto) Urine Creatinine Urine Total Protein Fluid Total Protein Vancomycin Trough Rheumatoid Factor Complement C4 Miscellaneous Test Crossmatch 11/02/16 11/02/16 11/02/16 04:16 05:29 11:58 WBC RBC Hgb Hct MCV MCH MCHC RDW Plt Count Lymph % (Auto) [place] % (Auto) Lymph # [place] # Baso # Seg Neutrophils % Seg Neuts % (Manual) Lymphocytes % (Manual) Monocytes % (Manual) Eosinophils % (Manual) Basophils % (Manual) Nucleated RBC % Seg Neutrophils # Seg Neutrophils # Man Lymphocytes # (Manual) Monocytes # (Manual) Eosinophils # (Manual) PT INR Fibrinogen dRVVT Confirm Interp Factor V Activity POC ABG pH POC ABG pCO2 POC ABG pO2 ABG pO2 ABG HCO3 ABG Base Excess ABG Hemoglobin Oxyhemoglobin Sodium Potassium 3.1 L Chloride Carbon Dioxide BUN 73 H Creatinine 2.3 H Glucose 112 H POC Glucose 135 H 149 H Lactic Acid Calcium Phosphorus Magnesium Direct Bilirubin AST ALT Alkaline Phosphatase Lactate Dehydrogenase Troponin T C-Reactive Protein Total Protein Albumin Prealbumin Triglycerides Cholesterol LDL Cholesterol Direct HDL Cholesterol Urine pH Urine WBC (Auto) Urine Creatinine Urine Total Protein Fluid Total Protein Vancomycin Trough Rheumatoid Factor Complement C4 Miscellaneous Test Crossmatch 11/02/16 11/02/16 11/03/16 17:42 22:54 06:00 WBC RBC Hgb Hct MCV MCH MCHC RDW Plt Count Lymph % (Auto) [place] % (Auto) Lymph # [place] # Baso # Seg Neutrophils % Seg Neuts % (Manual) Lymphocytes % (Manual) Monocytes % (Manual) Eosinophils % (Manual) Basophils % (Manual) Nucleated RBC % Seg Neutrophils # Seg Neutrophils # Man Lymphocytes # (Manual) Monocytes # (Manual) Eosinophils # (Manual) PT INR Fibrinogen dRVVT Confirm Interp Factor V Activity POC ABG pH POC ABG pCO2 POC ABG pO2 ABG pO2 ABG HCO3 ABG Base Excess ABG Hemoglobin Oxyhemoglobin Sodium Potassium Chloride 96.7 L Carbon Dioxide BUN 41 H Creatinine 1.5 H Glucose 145 H POC Glucose 182 H 115 H Lactic Acid Calcium Phosphorus 1.60 L D Magnesium 1.50 L Direct Bilirubin AST ALT Alkaline Phosphatase Lactate Dehydrogenase Troponin T C-Reactive Protein Total Protein Albumin Prealbumin Triglycerides Cholesterol LDL Cholesterol Direct HDL Cholesterol Urine pH Urine WBC (Auto) Urine Creatinine Urine Total Protein Fluid Total Protein Vancomycin Trough Rheumatoid Factor Complement C4 Miscellaneous Test Crossmatch 11/03/16 11/03/16 11/03/16 11:53 17:45 23:37 WBC RBC Hgb Hct MCV MCH MCHC RDW Plt Count Lymph % (Auto) [place] % (Auto) Lymph # [place] # Baso # Seg Neutrophils % Seg Neuts % (Manual) Lymphocytes % (Manual) Monocytes % (Manual) Eosinophils % (Manual) Basophils % (Manual) Nucleated RBC % Seg Neutrophils # Seg Neutrophils # Man Lymphocytes # (Manual) Monocytes # (Manual) Eosinophils # (Manual) PT INR Fibrinogen dRVVT Confirm Interp Factor V Activity POC ABG pH POC ABG pCO2 POC ABG pO2 ABG pO2 ABG HCO3 ABG Base Excess ABG Hemoglobin Oxyhemoglobin Sodium Potassium Chloride Carbon Dioxide BUN Creatinine Glucose POC Glucose 131 H 134 H 113 H Lactic Acid Calcium Phosphorus Magnesium Direct Bilirubin AST ALT Alkaline Phosphatase Lactate Dehydrogenase Troponin T C-Reactive Protein Total Protein Albumin Prealbumin Triglycerides Cholesterol LDL Cholesterol Direct HDL Cholesterol Urine pH Urine WBC (Auto) Urine Creatinine Urine Total Protein Fluid Total Protein Vancomycin Trough Rheumatoid Factor Complement C4 Miscellaneous Test Crossmatch 11/04/16 11/04/16 11/04/16 05:41 06:00 12:10 WBC RBC Hgb Hct MCV MCH MCHC RDW Plt Count Lymph % (Auto) [place] % (Auto) Lymph # [place] # Baso # Seg Neutrophils % Seg Neuts % (Manual) Lymphocytes % (Manual) Monocytes % (Manual) Eosinophils % (Manual) Basophils % (Manual) Nucleated RBC % Seg Neutrophils # Seg Neutrophils # Man Lymphocytes # (Manual) Monocytes # (Manual) Eosinophils # (Manual) PT INR Fibrinogen dRVVT Confirm Interp Factor V Activity POC ABG pH POC ABG pCO2 POC ABG pO2 ABG pO2 ABG HCO3 ABG Base Excess ABG Hemoglobin Oxyhemoglobin Sodium Potassium Chloride 96.7 L Carbon Dioxide BUN 52 H Creatinine 1.9 H Glucose 126 H POC Glucose 137 H 191 H Lactic Acid Calcium Phosphorus Magnesium Direct Bilirubin AST ALT Alkaline Phosphatase Lactate Dehydrogenase Troponin T C-Reactive Protein Total Protein Albumin Prealbumin Triglycerides Cholesterol LDL Cholesterol Direct HDL Cholesterol Urine pH Urine WBC (Auto) Urine Creatinine Urine Total Protein Fluid Total Protein Vancomycin Trough Rheumatoid Factor Complement C4 Miscellaneous Test Crossmatch 11/04/16 11/05/16 11/05/16 22:57 03:10 05:10 WBC RBC Hgb Hct MCV MCH MCHC RDW Plt Count Lymph % (Auto) [place] % (Auto) Lymph # [place] # Baso # Seg Neutrophils % Seg Neuts % (Manual) Lymphocytes % (Manual) Monocytes % (Manual) Eosinophils % (Manual) Basophils % (Manual) Nucleated RBC % Seg Neutrophils # Seg Neutrophils # Man Lymphocytes # (Manual) Monocytes # (Manual) Eosinophils # (Manual) PT INR Fibrinogen dRVVT Confirm Interp Factor V Activity POC ABG pH POC ABG pCO2 POC ABG pO2 ABG pO2 ABG HCO3 ABG Base Excess ABG Hemoglobin Oxyhemoglobin Sodium 136 L Potassium Chloride 97.2 L Carbon Dioxide BUN 32 H Creatinine 1.3 H Glucose 123 H POC Glucose 125 H 108 H Lactic Acid Calcium 7.8 L Phosphorus Magnesium Direct Bilirubin AST ALT Alkaline Phosphatase Lactate Dehydrogenase Troponin T C-Reactive Protein Total Protein Albumin Prealbumin Triglycerides Cholesterol LDL Cholesterol Direct HDL Cholesterol Urine pH Urine WBC (Auto) Urine Creatinine Urine Total Protein Fluid Total Protein Vancomycin Trough Rheumatoid Factor Complement C4 Miscellaneous Test Crossmatch 11/05/16 11/05/16 11/05/16 12:23 13:09 13:25 WBC RBC Hgb Hct MCV MCH MCHC RDW Plt Count Lymph % (Auto) [place] % (Auto) Lymph # [place] # Baso # Seg Neutrophils % Seg Neuts % (Manual) Lymphocytes % (Manual) Monocytes % (Manual) Eosinophils % (Manual) Basophils % (Manual) Nucleated RBC % Seg Neutrophils # Seg Neutrophils # Man Lymphocytes # (Manual) Monocytes # (Manual) Eosinophils # (Manual) PT INR Fibrinogen dRVVT Confirm Interp Factor V Activity POC ABG pH POC ABG pCO2 POC ABG pO2 ABG pO2 ABG HCO3 ABG Base Excess ABG Hemoglobin Oxyhemoglobin Sodium Potassium Chloride Carbon Dioxide BUN Creatinine Glucose POC Glucose 124 H Lactic Acid Calcium Phosphorus Magnesium Direct Bilirubin AST ALT Alkaline Phosphatase Lactate Dehydrogenase Troponin T C-Reactive Protein 11.40 H Total Protein Albumin Prealbumin Triglycerides Cholesterol LDL Cholesterol Direct HDL Cholesterol Urine pH 9.0 H Urine WBC (Auto) Urine Creatinine Urine Total Protein Fluid Total Protein Vancomycin Trough Rheumatoid Factor Complement C4 Miscellaneous Test Crossmatch 11/05/16 11/05/16 11/05/16 13:25 17:54 23:42 WBC RBC Hgb Hct MCV MCH MCHC RDW Plt Count Lymph % (Auto) [place] % (Auto) Lymph # [place] # [place] # Seg Neutrophils % Seg Neuts % (Manual) Lymphocytes % (Manual) Monocytes % (Manual) Eosinophils % (Manual) Basophils % (Manual) Nucleated RBC % Seg Neutrophils # Seg Neutrophils # Man Lymphocytes # (Manual) Monocytes # (Manual) Eosinophils # (Manual) PT INR Fibrinogen dRVVT Confirm Interp Factor V Activity POC ABG pH POC ABG pCO2 POC ABG pO2 ABG pO2 ABG HCO3 ABG Base Excess ABG Hemoglobin Oxyhemoglobin Sodium Potassium Chloride Carbon Dioxide BUN Creatinine Glucose POC Glucose 114 H 134 H Lactic Acid Calcium Phosphorus Magnesium Direct Bilirubin AST ALT Alkaline Phosphatase Lactate Dehydrogenase Troponin T C-Reactive Protein Total Protein Albumin Prealbumin Triglycerides Cholesterol LDL Cholesterol Direct HDL Cholesterol Urine pH Urine WBC (Auto) Urine Creatinine Urine Total Protein Fluid Total Protein Vancomycin Trough Rheumatoid Factor Complement C4 Miscellaneous Test Flexitest 1 H Crossmatch 11/06/16 11/06/16 11/06/16 04:56 06:25 06:25 WBC RBC 2.50 L Hgb 7.3 L Hct 22.5 L MCV MCH MCHC RDW 16.9 H Plt Count Lymph % (Auto) [place] % (Auto) 10.5 H Lymph # [place] # 1.1 H Baso # Seg Neutrophils % Seg Neuts % (Manual) Lymphocytes % (Manual) Monocytes % (Manual) Eosinophils % (Manual) Basophils % (Manual) Nucleated RBC % Seg Neutrophils # Seg Neutrophils # Man Lymphocytes # (Manual) Monocytes # (Manual) Eosinophils # (Manual) PT INR Fibrinogen dRVVT Confirm Interp Factor V Activity POC ABG pH POC ABG pCO2 POC ABG pO2 ABG pO2 ABG HCO3 ABG Base Excess ABG Hemoglobin Oxyhemoglobin Sodium Potassium 5.1 H Chloride 95.9 L Carbon Dioxide BUN 52 H Creatinine 1.8 H Glucose 117 H POC Glucose 120 H Lactic Acid Calcium Phosphorus Magnesium Direct Bilirubin AST 103 H ALT 77 H Alkaline Phosphatase 285 H Lactate Dehydrogenase Troponin T C-Reactive Protein Total Protein 6.2 L Albumin 1.8 L Prealbumin 0.180 L Triglycerides Cholesterol LDL Cholesterol Direct HDL Cholesterol Urine pH Urine WBC (Auto) Urine Creatinine Urine Total Protein Fluid Total Protein Vancomycin Trough Rheumatoid Factor Complement C4 Miscellaneous Test Crossmatch 11/06/16 11/06/16 11/06/16 11:56 17:14 23:52 WBC RBC Hgb Hct MCV MCH MCHC RDW Plt Count Lymph % (Auto) [place] % (Auto) Lymph # [place] # Baso # Seg Neutrophils % Seg Neuts % (Manual) Lymphocytes % (Manual) Monocytes % (Manual) Eosinophils % (Manual) Basophils % (Manual) Nucleated RBC % Seg Neutrophils # Seg Neutrophils # Man Lymphocytes # (Manual) Monocytes # (Manual) Eosinophils # (Manual) PT INR Fibrinogen dRVVT Confirm Interp Factor V Activity POC ABG pH POC ABG pCO2 POC ABG pO2 ABG pO2 ABG HCO3 ABG Base Excess ABG Hemoglobin Oxyhemoglobin Sodium Potassium Chloride Carbon Dioxide BUN Creatinine Glucose POC Glucose 141 H 125 H 130 H Lactic Acid Calcium Phosphorus Magnesium Direct Bilirubin AST ALT Alkaline Phosphatase Lactate Dehydrogenase Troponin T C-Reactive Protein Total Protein Albumin Prealbumin Triglycerides Cholesterol LDL Cholesterol Direct HDL Cholesterol Urine pH Urine WBC (Auto) Urine Creatinine Urine Total Protein Fluid Total Protein Vancomycin Trough Rheumatoid Factor Complement C4 Miscellaneous Test Crossmatch 11/07/16 11/07/16 11/07/16 06:30 06:30 09:37 WBC RBC 2.18 L Hgb 6.3 L Hct 19.7 L* MCV MCH MCHC RDW 16.8 H Plt Count Lymph % (Auto) [place] % (Auto) 10.0 H Lymph # [place] # 1.0 H Baso # Seg Neutrophils % Seg Neuts % (Manual) Lymphocytes % (Manual) Monocytes % (Manual) Eosinophils % (Manual) Basophils % (Manual) Nucleated RBC % Seg Neutrophils # Seg Neutrophils # Man Lymphocytes # (Manual) Monocytes # (Manual) Eosinophils # (Manual) PT INR Fibrinogen dRVVT Confirm Interp Factor V Activity POC ABG pH POC ABG pCO2 POC ABG pO2 ABG pO2 ABG HCO3 ABG Base Excess ABG Hemoglobin Oxyhemoglobin Sodium 135 L Potassium Chloride 95.6 L Carbon Dioxide BUN 70 H Creatinine 2.0 H Glucose 126 H POC Glucose Lactic Acid Calcium Phosphorus Magnesium Direct Bilirubin AST ALT Alkaline Phosphatase Lactate Dehydrogenase Troponin T C-Reactive Protein Total Protein Albumin Prealbumin Triglycerides Cholesterol LDL Cholesterol Direct HDL Cholesterol Urine pH Urine WBC (Auto) Urine Creatinine Urine Total Protein Fluid Total Protein Vancomycin Trough Rheumatoid Factor Complement C4 Miscellaneous Test Crossmatch See Detail 11/07/16 11/07/16 11/07/16 12:52 18:51 21:26 WBC RBC Hgb Hct MCV MCH MCHC RDW Plt Count Lymph % (Auto) [place] % (Auto) Lymph # [place] # Baso # Seg Neutrophils % Seg Neuts % (Manual) Lymphocytes % (Manual) Monocytes % (Manual) Eosinophils % (Manual) Basophils % (Manual) Nucleated RBC % Seg Neutrophils # Seg Neutrophils # Man Lymphocytes # (Manual) Monocytes # (Manual) Eosinophils # (Manual) PT INR Fibrinogen dRVVT Confirm Interp Factor V Activity POC ABG pH 7.523 H POC ABG pCO2 34.6 L POC ABG pO2 53 L ABG pO2 ABG HCO3 ABG Base Excess ABG Hemoglobin Oxyhemoglobin Sodium Potassium Chloride Carbon Dioxide BUN Creatinine Glucose POC Glucose 142 H 155 H Lactic Acid Calcium Phosphorus Magnesium Direct Bilirubin AST ALT Alkaline Phosphatase Lactate Dehydrogenase Troponin T C-Reactive Protein Total Protein Albumin Prealbumin Triglycerides Cholesterol LDL Cholesterol Direct HDL Cholesterol Urine pH Urine WBC (Auto) Urine Creatinine Urine Total Protein Fluid Total Protein Vancomycin Trough Rheumatoid Factor Complement C4 Miscellaneous Test Crossmatch 11/07/16 11/08/16 11/08/16 21:34 13:03 23:37 WBC RBC 2.63 L Hgb 7.7 L Hct 22.7 L MCV MCH MCHC RDW 17.0 H Plt Count Lymph % (Auto) [place] % (Auto) Lymph # [place] # Baso # Seg Neutrophils % Seg Neuts % (Manual) Lymphocytes % (Manual) Monocytes % (Manual) Eosinophils % (Manual) Basophils % (Manual) Nucleated RBC % Seg Neutrophils # Seg Neutrophils # Man Lymphocytes # (Manual) Monocytes # (Manual) Eosinophils # (Manual) PT INR Fibrinogen dRVVT Confirm Interp Factor V Activity POC ABG pH 7.478 H POC ABG pCO2 34.0 L POC ABG pO2 50 L ABG pO2 ABG HCO3 ABG Base Excess ABG Hemoglobin Oxyhemoglobin Sodium Potassium Chloride Carbon Dioxide BUN Creatinine Glucose POC Glucose 113 H Lactic Acid Calcium Phosphorus Magnesium Direct Bilirubin AST ALT Alkaline Phosphatase Lactate Dehydrogenase Troponin T C-Reactive Protein Total Protein Albumin Prealbumin Triglycerides Cholesterol LDL Cholesterol Direct HDL Cholesterol Urine pH Urine WBC (Auto) Urine Creatinine Urine Total Protein Fluid Total Protein Vancomycin Trough Rheumatoid Factor Complement C4 Miscellaneous Test Crossmatch 11/09/16 11/09/16 11/09/16 04:35 10:15 18:21 WBC RBC 2.68 L Hgb 7.8 L Hct 23.3 L MCV MCH MCHC RDW 17.0 H Plt Count Lymph % (Auto) [place] % (Auto) 12.1 H Lymph # [place] # 1.1 H Baso # Seg Neutrophils % Seg Neuts % (Manual) Lymphocytes % (Manual) Monocytes % (Manual) Eosinophils % (Manual) Basophils % (Manual) Nucleated RBC % Seg Neutrophils # Seg Neutrophils # Man Lymphocytes # (Manual) Monocytes # (Manual) Eosinophils # (Manual) PT INR Fibrinogen dRVVT Confirm Interp Factor V Activity POC ABG pH POC ABG pCO2 POC ABG pO2 ABG pO2 ABG HCO3 ABG Base Excess ABG Hemoglobin Oxyhemoglobin Sodium Potassium Chloride Carbon Dioxide BUN 51 H Creatinine 1.8 H Glucose POC Glucose 60 L Lactic Acid Calcium 8.3 L Phosphorus Magnesium Direct Bilirubin AST ALT Alkaline Phosphatase Lactate Dehydrogenase Troponin T C-Reactive Protein Total Protein Albumin Prealbumin Triglycerides Cholesterol LDL Cholesterol Direct HDL Cholesterol Urine pH Urine WBC (Auto) Urine Creatinine Urine Total Protein Fluid Total Protein Vancomycin Trough Rheumatoid Factor Complement C4 Miscellaneous Test Crossmatch 11/09/16 11/10/16 11/10/16 18:55 07:00 11:51 WBC RBC Hgb Hct MCV MCH MCHC RDW Plt Count Lymph % (Auto) [place] % (Auto) Lymph # [place] # Baso # Seg Neutrophils % Seg Neuts % (Manual) Lymphocytes % (Manual) Monocytes % (Manual) Eosinophils % (Manual) Basophils % (Manual) Nucleated RBC % Seg Neutrophils # Seg Neutrophils # Man Lymphocytes # (Manual) Monocytes # (Manual) Eosinophils # (Manual) PT INR Fibrinogen dRVVT Confirm Interp Factor V Activity POC ABG pH POC ABG pCO2 POC ABG pO2 ABG pO2 ABG HCO3 ABG Base Excess ABG Hemoglobin Oxyhemoglobin Sodium Potassium 3.0 L D Chloride 97.4 L Carbon Dioxide BUN 28 H Creatinine 1.3 H Glucose POC Glucose 68 L 120 H Lactic Acid Calcium 7.8 L Phosphorus Magnesium Direct Bilirubin AST ALT Alkaline Phosphatase Lactate Dehydrogenase Troponin T C-Reactive Protein Total Protein Albumin Prealbumin Triglycerides Cholesterol LDL Cholesterol Direct HDL Cholesterol Urine pH Urine WBC (Auto) Urine Creatinine Urine Total Protein Fluid Total Protein Vancomycin Trough Rheumatoid Factor Complement C4 Miscellaneous Test Crossmatch 11/10/16 11/11/16 11/11/16 14:20 06:59 06:59 WBC RBC 2.81 L Hgb 8.1 L Hct 24.4 L MCV MCH MCHC RDW 16.4 H Plt Count Lymph % (Auto) [place] % (Auto) 10.8 H Lymph # [place] # 1.0 H Baso # Seg Neutrophils % Seg Neuts % (Manual) Lymphocytes % (Manual) Monocytes % (Manual) Eosinophils % (Manual) Basophils % (Manual) Nucleated RBC % Seg Neutrophils # Seg Neutrophils # Man Lymphocytes # (Manual) Monocytes # (Manual) Eosinophils # (Manual) PT INR Fibrinogen dRVVT Confirm Interp Factor V Activity POC ABG pH POC ABG pCO2 POC ABG pO2 ABG pO2 ABG HCO3 ABG Base Excess ABG Hemoglobin Oxyhemoglobin Sodium Potassium Chloride Carbon Dioxide BUN Creatinine Glucose POC Glucose Lactic Acid Calcium Phosphorus Magnesium Direct Bilirubin AST ALT Alkaline Phosphatase Lactate Dehydrogenase 196 H Troponin T C-Reactive Protein Total Protein 6.1 L Albumin Prealbumin Triglycerides Cholesterol LDL Cholesterol Direct HDL Cholesterol Urine pH Urine WBC (Auto) Urine Creatinine Urine Total Protein Fluid Total Protein < 3.0 L Vancomycin Trough Rheumatoid Factor Complement C4 Miscellaneous Test Crossmatch 11/11/16 11/11/16 11/12/16 06:59 09:50 04:00 WBC RBC Hgb Hct MCV MCH MCHC RDW Plt Count Lymph % (Auto) [place] % (Auto) Lymph # [place] # Baso # Seg Neutrophils % Seg Neuts % (Manual) Lymphocytes % (Manual) Monocytes % (Manual) Eosinophils % (Manual) Basophils % (Manual) Nucleated RBC % Seg Neutrophils # Seg Neutrophils # Man Lymphocytes # (Manual) Monocytes # (Manual) Eosinophils # (Manual) PT INR 1.18 H Fibrinogen dRVVT Confirm Interp Factor V Activity POC ABG pH POC ABG pCO2 POC ABG pO2 ABG pO2 ABG HCO3 ABG Base Excess ABG Hemoglobin Oxyhemoglobin Sodium 136 L 133 L Potassium Chloride 96.1 L 94.8 L Carbon Dioxide 21 L BUN 37 H 42 H Creatinine 1.8 H 2.0 H Glucose POC Glucose Lactic Acid Calcium Phosphorus Magnesium Direct Bilirubin AST ALT Alkaline Phosphatase Lactate Dehydrogenase Troponin T C-Reactive Protein Total Protein Albumin Prealbumin Triglycerides Cholesterol LDL Cholesterol Direct HDL Cholesterol Urine pH Urine WBC (Auto) Urine Creatinine Urine Total Protein Fluid Total Protein Vancomycin Trough Rheumatoid Factor Complement C4 Miscellaneous Test Crossmatch 11/12/16 11/12/16 11/13/16 04:00 23:55 05:53 WBC RBC Hgb 8.9 L Hct 27.2 L MCV MCH MCHC RDW Plt Count Lymph % (Auto) [place] % (Auto) Lymph # [place] # Baso # Seg Neutrophils % Seg Neuts % (Manual) Lymphocytes % (Manual) Monocytes % (Manual) Eosinophils % (Manual) Basophils % (Manual) Nucleated RBC % Seg Neutrophils # Seg Neutrophils # Man Lymphocytes # (Manual) Monocytes # (Manual) Eosinophils # (Manual) PT INR Fibrinogen dRVVT Confirm Interp Factor V Activity POC ABG pH POC ABG pCO2 POC ABG pO2 ABG pO2 ABG HCO3 ABG Base Excess ABG Hemoglobin Oxyhemoglobin Sodium Potassium Chloride Carbon Dioxide BUN Creatinine Glucose POC Glucose 132 H 120 H Lactic Acid Calcium Phosphorus Magnesium Direct Bilirubin AST ALT Alkaline Phosphatase Lactate Dehydrogenase Troponin T C-Reactive Protein Total Protein Albumin Prealbumin Triglycerides Cholesterol LDL Cholesterol Direct HDL Cholesterol Urine pH Urine WBC (Auto) Urine Creatinine Urine Total Protein Fluid Total Protein Vancomycin Trough Rheumatoid Factor Complement C4 Miscellaneous Test Crossmatch 11/13/16 11/13/16 11/13/16 11:43 17:09 23:41 WBC RBC Hgb Hct MCV MCH MCHC RDW Plt Count Lymph % (Auto) [place] % (Auto) Lymph # [place] # Baso # Seg Neutrophils % Seg Neuts % (Manual) Lymphocytes % (Manual) Monocytes % (Manual) Eosinophils % (Manual) Basophils % (Manual) Nucleated RBC % Seg Neutrophils # Seg Neutrophils # Man Lymphocytes # (Manual) Monocytes # (Manual) Eosinophils # (Manual) PT INR Fibrinogen dRVVT Confirm Interp Factor V Activity POC ABG pH POC ABG pCO2 POC ABG pO2 ABG pO2 ABG HCO3 ABG Base Excess ABG Hemoglobin Oxyhemoglobin Sodium Potassium Chloride Carbon Dioxide BUN Creatinine Glucose POC Glucose 114 H 113 H 108 H Lactic Acid Calcium Phosphorus Magnesium Direct Bilirubin AST ALT Alkaline Phosphatase Lactate Dehydrogenase Troponin T C-Reactive Protein Total Protein Albumin Prealbumin Triglycerides Cholesterol LDL Cholesterol Direct HDL Cholesterol Urine pH Urine WBC (Auto) Urine Creatinine Urine Total Protein Fluid Total Protein Vancomycin Trough Rheumatoid Factor Complement C4 Miscellaneous Test Crossmatch 11/13/16 11/15/16 11/15/16 Unknown 00:37 03:30 WBC 11.2 H RBC 2.72 L Hgb 7.6 L Hct 23.4 L MCV MCH MCHC RDW 16.5 H Plt Count Lymph % (Auto) [place] % (Auto) Lymph # [place] # Baso # Seg Neutrophils % Seg Neuts % (Manual) Lymphocytes % (Manual) Monocytes % (Manual) Eosinophils % (Manual) Basophils % (Manual) Nucleated RBC % Seg Neutrophils # Seg Neutrophils # Man Lymphocytes # (Manual) Monocytes # (Manual) Eosinophils # (Manual) PT INR Fibrinogen dRVVT Confirm Interp Factor V Activity POC ABG pH POC ABG pCO2 POC ABG pO2 ABG pO2 ABG HCO3 ABG Base Excess ABG Hemoglobin Oxyhemoglobin Sodium 135 L Potassium Chloride 95.2 L Carbon Dioxide BUN 52 H Creatinine 2.2 H Glucose POC Glucose 108 H Lactic Acid Calcium Phosphorus Magnesium Direct Bilirubin AST ALT Alkaline Phosphatase Lactate Dehydrogenase Troponin T C-Reactive Protein Total Protein Albumin Prealbumin Triglycerides Cholesterol LDL Cholesterol Direct HDL Cholesterol Urine pH Urine WBC (Auto) Urine Creatinine Urine Total Protein Fluid Total Protein Vancomycin Trough Rheumatoid Factor Complement C4 Miscellaneous Test Crossmatch 11/15/16 11/15/16 11/15/16 03:30 05:04 11:50 WBC RBC Hgb Hct MCV MCH MCHC RDW Plt Count Lymph % (Auto) [place] % (Auto) Lymph # [place] # Baso # Seg Neutrophils % Seg Neuts % (Manual) Lymphocytes % (Manual) Monocytes % (Manual) Eosinophils % (Manual) Basophils % (Manual) Nucleated RBC % Seg Neutrophils # Seg Neutrophils # Man Lymphocytes # (Manual) Monocytes # (Manual) Eosinophils # (Manual) PT INR Fibrinogen dRVVT Confirm Interp Factor V Activity POC ABG pH POC ABG pCO2 POC ABG pO2 ABG pO2 ABG HCO3 ABG Base Excess ABG Hemoglobin Oxyhemoglobin Sodium Potassium 3.4 L Chloride Carbon Dioxide BUN 25 H Creatinine 1.5 H Glucose 103 H POC Glucose 121 H 144 H Lactic Acid Calcium Phosphorus Magnesium Direct Bilirubin AST ALT Alkaline Phosphatase Lactate Dehydrogenase Troponin T C-Reactive Protein Total Protein Albumin Prealbumin Triglycerides Cholesterol LDL Cholesterol Direct HDL Cholesterol Urine pH Urine WBC (Auto) Urine Creatinine Urine Total Protein Fluid Total Protein Vancomycin Trough Rheumatoid Factor Complement C4 Miscellaneous Test Crossmatch 11/15/16 11/15/16 11/16/16 21:28 23:20 11:44 WBC RBC Hgb Hct MCV MCH MCHC RDW Plt Count Lymph % (Auto) [place] % (Auto) Lymph # [place] # Baso # Seg Neutrophils % Seg Neuts % (Manual) Lymphocytes % (Manual) Monocytes % (Manual) Eosinophils % (Manual) Basophils % (Manual) Nucleated RBC % Seg Neutrophils # Seg Neutrophils # Man Lymphocytes # (Manual) Monocytes # (Manual) Eosinophils # (Manual) PT INR Fibrinogen dRVVT Confirm Interp Factor V Activity POC ABG pH 7.462 H POC ABG pCO2 POC ABG pO2 71 L ABG pO2 ABG HCO3 ABG Base Excess ABG Hemoglobin Oxyhemoglobin Sodium Potassium Chloride Carbon Dioxide BUN Creatinine Glucose POC Glucose 116 H 133 H Lactic Acid Calcium Phosphorus Magnesium Direct Bilirubin AST ALT Alkaline Phosphatase Lactate Dehydrogenase Troponin T C-Reactive Protein Total Protein Albumin Prealbumin Triglycerides Cholesterol LDL Cholesterol Direct HDL Cholesterol Urine pH Urine WBC (Auto) Urine Creatinine Urine Total Protein Fluid Total Protein Vancomycin Trough Rheumatoid Factor Complement C4 Miscellaneous Test Crossmatch 11/16/16 11/16/16 11/16/16 12:20 17:05 23:35 WBC 11.7 H RBC 2.73 L Hgb 7.6 L Hct 23.7 L MCV MCH MCHC RDW 16.6 H Plt Count Lymph % (Auto) [place] % (Auto) Lymph # [place] # Baso # Seg Neutrophils % Seg Neuts % (Manual) Lymphocytes % (Manual) Monocytes % (Manual) Eosinophils % (Manual) Basophils % (Manual) Nucleated RBC % Seg Neutrophils # Seg Neutrophils # Man Lymphocytes # (Manual) Monocytes # (Manual) Eosinophils # (Manual) PT INR Fibrinogen dRVVT Confirm Interp Factor V Activity POC ABG pH POC ABG pCO2 POC ABG pO2 ABG pO2 ABG HCO3 ABG Base Excess ABG Hemoglobin Oxyhemoglobin Sodium Potassium Chloride Carbon Dioxide BUN Creatinine Glucose POC Glucose 154 H 125 H Lactic Acid Calcium Phosphorus Magnesium Direct Bilirubin AST ALT Alkaline Phosphatase Lactate Dehydrogenase Troponin T C-Reactive Protein Total Protein Albumin Prealbumin Triglycerides Cholesterol LDL Cholesterol Direct HDL Cholesterol Urine pH Urine WBC (Auto) Urine Creatinine Urine Total Protein Fluid Total Protein Vancomycin Trough Rheumatoid Factor Complement C4 Miscellaneous Test Crossmatch 11/17/16 11/17/16 11/17/16 03:20 03:20 03:20 WBC RBC 2.55 L Hgb 7.3 L Hct 21.9 L MCV MCH MCHC RDW 16.6 H Plt Count Lymph % (Auto) [place] % (Auto) 11.5 H Lymph # [place] # 1.1 H Baso # Seg Neutrophils % Seg Neuts % (Manual) Lymphocytes % (Manual) Monocytes % (Manual) Eosinophils % (Manual) Basophils % (Manual) Nucleated RBC % Seg Neutrophils # Seg Neutrophils # Man Lymphocytes # (Manual) Monocytes # (Manual) Eosinophils # (Manual) PT 16.8 H INR 1.37 H Fibrinogen dRVVT Confirm Interp Factor V Activity POC ABG pH POC ABG pCO2 POC ABG pO2 ABG pO2 ABG HCO3 ABG Base Excess ABG Hemoglobin Oxyhemoglobin Sodium Potassium 3.5 L Chloride Carbon Dioxide BUN 21 H Creatinine Glucose POC Glucose Lactic Acid Calcium 7.9 L Phosphorus Magnesium Direct Bilirubin AST ALT Alkaline Phosphatase Lactate Dehydrogenase Troponin T C-Reactive Protein Total Protein Albumin Prealbumin Triglycerides Cholesterol LDL Cholesterol Direct HDL Cholesterol Urine pH Urine WBC (Auto) Urine Creatinine Urine Total Protein Fluid Total Protein Vancomycin Trough Rheumatoid Factor Complement C4 Miscellaneous Test Crossmatch 11/17/16 11/17/16 11/17/16 06:34 11:21 21:22 WBC RBC Hgb Hct MCV MCH MCHC RDW Plt Count Lymph % (Auto) [place] % (Auto) Lymph # [place] # Baso # Seg Neutrophils % Seg Neuts % (Manual) Lymphocytes % (Manual) Monocytes % (Manual) Eosinophils % (Manual) Basophils % (Manual) Nucleated RBC % Seg Neutrophils # Seg Neutrophils # Man Lymphocytes # (Manual) Monocytes # (Manual) Eosinophils # (Manual) PT INR Fibrinogen dRVVT Confirm Interp Factor V Activity POC ABG pH 7.467 H POC ABG pCO2 POC ABG pO2 73 L ABG pO2 ABG HCO3 ABG Base Excess ABG Hemoglobin Oxyhemoglobin Sodium Potassium Chloride Carbon Dioxide BUN Creatinine Glucose POC Glucose 121 H 119 H Lactic Acid Calcium Phosphorus Magnesium Direct Bilirubin AST ALT Alkaline Phosphatase Lactate Dehydrogenase Troponin T C-Reactive Protein Total Protein Albumin Prealbumin Triglycerides Cholesterol LDL Cholesterol Direct HDL Cholesterol Urine pH Urine WBC (Auto) Urine Creatinine Urine Total Protein Fluid Total Protein Vancomycin Trough Rheumatoid Factor Complement C4 Miscellaneous Test Crossmatch 11/18/16 11/18/16 11/19/16 12:16 17:19 00:00 WBC RBC Hgb Hct MCV MCH MCHC RDW Plt Count Lymph % (Auto) [place] % (Auto) Lymph # [place] # Baso # Seg Neutrophils % Seg Neuts % (Manual) Lymphocytes % (Manual) Monocytes % (Manual) Eosinophils % (Manual) Basophils % (Manual) Nucleated RBC % Seg Neutrophils # Seg Neutrophils # Man Lymphocytes # (Manual) Monocytes # (Manual) Eosinophils # (Manual) PT INR Fibrinogen dRVVT Confirm Interp Factor V Activity POC ABG pH POC ABG pCO2 POC ABG pO2 ABG pO2 ABG HCO3 ABG Base Excess ABG Hemoglobin Oxyhemoglobin Sodium Potassium Chloride Carbon Dioxide BUN Creatinine Glucose POC Glucose 124 H 162 H 139 H Lactic Acid Calcium Phosphorus Magnesium Direct Bilirubin AST ALT Alkaline Phosphatase Lactate Dehydrogenase Troponin T C-Reactive Protein Total Protein Albumin Prealbumin Triglycerides Cholesterol LDL Cholesterol Direct HDL Cholesterol Urine pH Urine WBC (Auto) Urine Creatinine Urine Total Protein Fluid Total Protein Vancomycin Trough Rheumatoid Factor Complement C4 Miscellaneous Test Crossmatch 11/19/16 11/19/16 11/20/16 05:00 12:43 00:40 WBC RBC Hgb Hct MCV MCH MCHC RDW Plt Count Lymph % (Auto) [place] % (Auto) Lymph # [place] # Baso # Seg Neutrophils % Seg Neuts % (Manual) Lymphocytes % (Manual) Monocytes % (Manual) Eosinophils % (Manual) Basophils % (Manual) Nucleated RBC % Seg Neutrophils # Seg Neutrophils # Man Lymphocytes # (Manual) Monocytes # (Manual) Eosinophils # (Manual) PT INR Fibrinogen dRVVT Confirm Interp Factor V Activity POC ABG pH POC ABG pCO2 POC ABG pO2 ABG pO2 ABG HCO3 ABG Base Excess ABG Hemoglobin Oxyhemoglobin Sodium Potassium Chloride Carbon Dioxide BUN Creatinine Glucose POC Glucose 110 H 125 H 136 H Lactic Acid Calcium Phosphorus Magnesium Direct Bilirubin AST ALT Alkaline Phosphatase Lactate Dehydrogenase Troponin T C-Reactive Protein Total Protein Albumin Prealbumin Triglycerides Cholesterol LDL Cholesterol Direct HDL Cholesterol Urine pH Urine WBC (Auto) Urine Creatinine Urine Total Protein Fluid Total Protein Vancomycin Trough Rheumatoid Factor Complement C4 Miscellaneous Test Crossmatch 11/20/16 11/20/16 11/20/16 05:00 05:00 05:51 WBC 13.1 H RBC 2.74 L Hgb 7.7 L Hct 23.6 L MCV MCH MCHC RDW 16.9 H Plt Count Lymph % (Auto) [place] % (Auto) 10.8 H Lymph # [place] # 1.4 H Baso # Seg Neutrophils % Seg Neuts % (Manual) Lymphocytes % (Manual) Monocytes % (Manual) Eosinophils % (Manual) Basophils % (Manual) Nucleated RBC % Seg Neutrophils # 7.9 H Seg Neutrophils # Man Lymphocytes # (Manual) Monocytes # (Manual) Eosinophils # (Manual) PT INR Fibrinogen dRVVT Confirm Interp Factor V Activity POC ABG pH POC ABG pCO2 POC ABG pO2 ABG pO2 ABG HCO3 ABG Base Excess ABG Hemoglobin Oxyhemoglobin Sodium Potassium Chloride Carbon Dioxide BUN 31 H Creatinine 1.8 H Glucose 129 H POC Glucose 133 H Lactic Acid Calcium Phosphorus Magnesium Direct Bilirubin AST ALT Alkaline Phosphatase Lactate Dehydrogenase Troponin T C-Reactive Protein Total Protein Albumin Prealbumin Triglycerides Cholesterol LDL Cholesterol Direct HDL Cholesterol Urine pH Urine WBC (Auto) Urine Creatinine Urine Total Protein Fluid Total Protein Vancomycin Trough Rheumatoid Factor Complement C4 Miscellaneous Test Crossmatch 11/20/16 11/20/16 11/21/16 12:40 18:10 01:20 WBC RBC Hgb Hct MCV MCH MCHC RDW Plt Count Lymph % (Auto) [place] % (Auto) Lymph # [place] # Baso # Seg Neutrophils % Seg Neuts % (Manual) Lymphocytes % (Manual) Monocytes % (Manual) Eosinophils % (Manual) Basophils % (Manual) Nucleated RBC % Seg Neutrophils # Seg Neutrophils # Man Lymphocytes # (Manual) Monocytes # (Manual) Eosinophils # (Manual) PT INR Fibrinogen dRVVT Confirm Interp Factor V Activity POC ABG pH POC ABG pCO2 POC ABG pO2 ABG pO2 ABG HCO3 ABG Base Excess ABG Hemoglobin Oxyhemoglobin Sodium Potassium Chloride Carbon Dioxide BUN Creatinine Glucose POC Glucose 134 H 138 H 136 H Lactic Acid Calcium Phosphorus Magnesium Direct Bilirubin AST ALT Alkaline Phosphatase Lactate Dehydrogenase Troponin T C-Reactive Protein Total Protein Albumin Prealbumin Triglycerides Cholesterol LDL Cholesterol Direct HDL Cholesterol Urine pH Urine WBC (Auto) Urine Creatinine Urine Total Protein Fluid Total Protein Vancomycin Trough Rheumatoid Factor Complement C4 Miscellaneous Test Crossmatch 11/21/16 11/21/16 11/21/16 07:04 07:45 07:45 WBC 22.0 H RBC 2.91 L Hgb 8.2 L Hct 25.4 L MCV MCH MCHC RDW 17.1 H Plt Count Lymph % (Auto) [place] % (Auto) Lymph # [place] # Baso # Seg Neutrophils % Seg Neuts % (Manual) Lymphocytes % (Manual) 8.0 L Monocytes % (Manual) Eosinophils % (Manual) Basophils % (Manual) Nucleated RBC % Seg Neutrophils # Seg Neutrophils # Man 14.7 H Lymphocytes # (Manual) Monocytes # (Manual) 1.1 H Eosinophils # (Manual) PT INR Fibrinogen dRVVT Confirm Interp Factor V Activity POC ABG pH POC ABG pCO2 POC ABG pO2 ABG pO2 ABG HCO3 ABG Base Excess ABG Hemoglobin Oxyhemoglobin Sodium Potassium Chloride Carbon Dioxide BUN 42 H Creatinine 2.0 H Glucose POC Glucose 108 H Lactic Acid Calcium Phosphorus Magnesium Direct Bilirubin AST ALT Alkaline Phosphatase Lactate Dehydrogenase Troponin T C-Reactive Protein Total Protein Albumin Prealbumin Triglycerides Cholesterol LDL Cholesterol Direct HDL Cholesterol Urine pH Urine WBC (Auto) Urine Creatinine Urine Total Protein Fluid Total Protein Vancomycin Trough Rheumatoid Factor Complement C4 Miscellaneous Test Crossmatch 11/21/16 11/21/16 11/21/16 08:38 10:09 11:20 WBC RBC Hgb Hct MCV MCH MCHC RDW Plt Count Lymph % (Auto) [place] % (Auto) Lymph # [place] # Baso # Seg Neutrophils % Seg Neuts % (Manual) Lymphocytes % (Manual) Monocytes % (Manual) Eosinophils % (Manual) Basophils % (Manual) Nucleated RBC % Seg Neutrophils # Seg Neutrophils # Man Lymphocytes # (Manual) Monocytes # (Manual) Eosinophils # (Manual) PT INR Fibrinogen dRVVT Confirm Interp Factor V Activity POC ABG pH 7.346 L POC ABG pCO2 34.4 L POC ABG pO2 314 H ABG pO2 ABG HCO3 ABG Base Excess ABG Hemoglobin Oxyhemoglobin Sodium Potassium Chloride Carbon Dioxide BUN Creatinine Glucose POC Glucose 195 H 153 H Lactic Acid Calcium Phosphorus Magnesium Direct Bilirubin AST ALT Alkaline Phosphatase Lactate Dehydrogenase Troponin T C-Reactive Protein Total Protein Albumin Prealbumin Triglycerides Cholesterol LDL Cholesterol Direct HDL Cholesterol Urine pH Urine WBC (Auto) Urine Creatinine Urine Total Protein Fluid Total Protein Vancomycin Trough Rheumatoid Factor Complement C4 Miscellaneous Test Crossmatch 11/21/16 11/22/16 11/22/16 23:37 04:48 05:00 WBC 29.7 H RBC 2.73 L Hgb 7.5 L Hct 24.2 L MCV MCH 27 L MCHC RDW 17.4 H Plt Count Lymph % (Auto) [place] % (Auto) Lymph # [place] # Baso # Seg Neutrophils % Seg Neuts % (Manual) Lymphocytes % (Manual) 7.0 L Monocytes % (Manual) Eosinophils % (Manual) Basophils % (Manual) Nucleated RBC % Seg Neutrophils # Seg Neutrophils # Man 15.4 H Lymphocytes # (Manual) Monocytes # (Manual) Eosinophils # (Manual) PT INR Fibrinogen dRVVT Confirm Interp Factor V Activity POC ABG pH POC ABG pCO2 24.6 L POC ABG pO2 189 H ABG pO2 ABG HCO3 ABG Base Excess ABG Hemoglobin Oxyhemoglobin Sodium Potassium Chloride Carbon Dioxide BUN Creatinine Glucose POC Glucose 65 L Lactic Acid Calcium Phosphorus Magnesium Direct Bilirubin AST ALT Alkaline Phosphatase Lactate Dehydrogenase Troponin T C-Reactive Protein Total Protein Albumin Prealbumin Triglycerides Cholesterol LDL Cholesterol Direct HDL Cholesterol Urine pH Urine WBC (Auto) Urine Creatinine Urine Total Protein Fluid Total Protein Vancomycin Trough Rheumatoid Factor Complement C4 Miscellaneous Test Crossmatch 11/22/16 11/23/16 11/23/16 05:00 03:44 04:06 WBC RBC 2.52 L Hgb 7.2 L Hct 21.5 L MCV MCH MCHC RDW 17.1 H Plt Count Lymph % (Auto) [place] % (Auto) 12.4 H Lymph # [place] # 1.4 H Baso # Seg Neutrophils % Seg Neuts % (Manual) Lymphocytes % (Manual) Monocytes % (Manual) Eosinophils % (Manual) Basophils % (Manual) Nucleated RBC % Seg Neutrophils # Seg Neutrophils # Man Lymphocytes # (Manual) Monocytes # (Manual) Eosinophils # (Manual) PT INR Fibrinogen dRVVT Confirm Interp Factor V Activity POC ABG pH 7.493 H POC ABG pCO2 29.5 L POC ABG pO2 49 L ABG pO2 ABG HCO3 ABG Base Excess ABG Hemoglobin Oxyhemoglobin Sodium 134 L Potassium Chloride 95.9 L Carbon Dioxide 14 L D BUN 51 H Creatinine 2.6 H Glucose POC Glucose Lactic Acid Calcium Phosphorus Magnesium Direct Bilirubin AST ALT Alkaline Phosphatase Lactate Dehydrogenase Troponin T C-Reactive Protein Total Protein Albumin Prealbumin Triglycerides Cholesterol LDL Cholesterol Direct HDL Cholesterol Urine pH Urine WBC (Auto) Urine Creatinine Urine Total Protein Fluid Total Protein Vancomycin Trough Rheumatoid Factor Complement C4 Miscellaneous Test Crossmatch 11/23/16 11/23/16 11/24/16 04:06 11:29 06:39 WBC RBC Hgb Hct MCV MCH MCHC RDW Plt Count Lymph % (Auto) [place] % (Auto) Lymph # [place] # Baso # Seg Neutrophils % Seg Neuts % (Manual) Lymphocytes % (Manual) Monocytes % (Manual) Eosinophils % (Manual) Basophils % (Manual) Nucleated RBC % Seg Neutrophils # Seg Neutrophils # Man Lymphocytes # (Manual) Monocytes # (Manual) Eosinophils # (Manual) PT INR Fibrinogen dRVVT Confirm Interp Factor V Activity POC ABG pH POC ABG pCO2 POC ABG pO2 ABG pO2 ABG HCO3 ABG Base Excess ABG Hemoglobin Oxyhemoglobin Sodium 136 L Potassium Chloride 95.2 L Carbon Dioxide BUN 60 H Creatinine 2.9 H Glucose POC Glucose 69 L 305 H Lactic Acid Calcium Phosphorus Magnesium 1.60 L Direct Bilirubin AST ALT Alkaline Phosphatase Lactate Dehydrogenase Troponin T C-Reactive Protein Total Protein Albumin Prealbumin Triglycerides Cholesterol LDL Cholesterol Direct HDL Cholesterol Urine pH Urine WBC (Auto) Urine Creatinine Urine Total Protein Fluid Total Protein Vancomycin Trough Rheumatoid Factor Complement C4 Miscellaneous Test Crossmatch 11/24/16 11/24/16 11/24/16 06:43 08:08 08:08 WBC 11.2 H RBC 2.47 L Hgb 6.8 L Hct 20.6 L MCV MCH MCHC RDW 17.0 H Plt Count Lymph % (Auto) [place] % (Auto) 10.3 H Lymph # [place] # 1.2 H Baso # Seg Neutrophils % Seg Neuts % (Manual) Lymphocytes % (Manual) Monocytes % (Manual) Eosinophils % (Manual) Basophils % (Manual) Nucleated RBC % Seg Neutrophils # Seg Neutrophils # Man Lymphocytes # (Manual) Monocytes # (Manual) Eosinophils # (Manual) PT INR Fibrinogen dRVVT Confirm Interp Factor V Activity POC ABG pH POC ABG pCO2 POC ABG pO2 ABG pO2 ABG HCO3 ABG Base Excess ABG Hemoglobin Oxyhemoglobin Sodium 135 L Potassium Chloride 96.3 L Carbon Dioxide BUN 61 H Creatinine 3.1 H Glucose POC Glucose 62 L Lactic Acid Calcium 8.2 L Phosphorus Magnesium Direct Bilirubin AST ALT Alkaline Phosphatase Lactate Dehydrogenase Troponin T C-Reactive Protein Total Protein Albumin Prealbumin Triglycerides Cholesterol LDL Cholesterol Direct HDL Cholesterol Urine pH Urine WBC (Auto) Urine Creatinine Urine Total Protein Fluid Total Protein Vancomycin Trough Rheumatoid Factor Complement C4 Miscellaneous Test Crossmatch 11/24/16 11/24/16 11/24/16 08:34 11:20 12:41 WBC RBC Hgb Hct MCV MCH MCHC RDW Plt Count Lymph % (Auto) [place] % (Auto) Lymph # [place] # Baso # Seg Neutrophils % Seg Neuts % (Manual) Lymphocytes % (Manual) Monocytes % (Manual) Eosinophils % (Manual) Basophils % (Manual) Nucleated RBC % Seg Neutrophils # Seg Neutrophils # Man Lymphocytes # (Manual) Monocytes # (Manual) Eosinophils # (Manual) PT INR Fibrinogen dRVVT Confirm Interp Factor V Activity POC ABG pH POC ABG pCO2 POC ABG pO2 ABG pO2 ABG HCO3 ABG Base Excess ABG Hemoglobin Oxyhemoglobin Sodium Potassium Chloride Carbon Dioxide BUN Creatinine Glucose POC Glucose 108 H Lactic Acid Calcium Phosphorus Magnesium 1.60 L Direct Bilirubin AST ALT Alkaline Phosphatase Lactate Dehydrogenase Troponin T C-Reactive Protein Total Protein Albumin Prealbumin Triglycerides Cholesterol LDL Cholesterol Direct HDL Cholesterol Urine pH Urine WBC (Auto) Urine Creatinine Urine Total Protein Fluid Total Protein Vancomycin Trough Rheumatoid Factor Complement C4 Miscellaneous Test Crossmatch See Detail 11/25/16 11/25/16 11/25/16 00:03 04:42 04:42 WBC RBC 3.03 L Hgb 8.6 L Hct 25.3 L MCV MCH MCHC RDW 16.2 H Plt Count Lymph % (Auto) [place] % (Auto) 8.1 H Lymph # [place] # Baso # Seg Neutrophils % 71.3 H Seg Neuts % (Manual) Lymphocytes % (Manual) Monocytes % (Manual) Eosinophils % (Manual) Basophils % (Manual) Nucleated RBC % Seg Neutrophils # Seg Neutrophils # Man Lymphocytes # (Manual) Monocytes # (Manual) Eosinophils # (Manual) PT INR Fibrinogen dRVVT Confirm Interp Factor V Activity POC ABG pH POC ABG pCO2 POC ABG pO2 ABG pO2 ABG HCO3 ABG Base Excess ABG Hemoglobin Oxyhemoglobin Sodium Potassium Chloride Carbon Dioxide BUN 61 H Creatinine 3.0 H Glucose 102 H POC Glucose 113 H Lactic Acid Calcium 8.2 L Phosphorus Magnesium Direct Bilirubin AST ALT Alkaline Phosphatase 142 H Lactate Dehydrogenase Troponin T C-Reactive Protein Total Protein 5.7 L Albumin 1.5 L Prealbumin Triglycerides Cholesterol LDL Cholesterol Direct HDL Cholesterol Urine pH Urine WBC (Auto) Urine Creatinine Urine Total Protein Fluid Total Protein Vancomycin Trough Rheumatoid Factor Complement C4 Miscellaneous Test Crossmatch 11/25/16 11/25/16 11/25/16 05:12 11:31 14:12 WBC RBC Hgb Hct MCV MCH MCHC RDW Plt Count Lymph % (Auto) [place] % (Auto) Lymph # [place] # Baso # Seg Neutrophils % Seg Neuts % (Manual) Lymphocytes % (Manual) Monocytes % (Manual) Eosinophils % (Manual) Basophils % (Manual) Nucleated RBC % Seg Neutrophils # Seg Neutrophils # Man Lymphocytes # (Manual) Monocytes # (Manual) Eosinophils # (Manual) PT INR Fibrinogen dRVVT Confirm Interp Factor V Activity POC ABG pH 7.487 H POC ABG pCO2 POC ABG pO2 153 H ABG pO2 ABG HCO3 ABG Base Excess ABG Hemoglobin Oxyhemoglobin Sodium Potassium Chloride Carbon Dioxide BUN Creatinine Glucose POC Glucose 131 H 140 H Lactic Acid Calcium Phosphorus Magnesium Direct Bilirubin AST ALT Alkaline Phosphatase Lactate Dehydrogenase Troponin T C-Reactive Protein Total Protein Albumin Prealbumin Triglycerides Cholesterol LDL Cholesterol Direct HDL Cholesterol Urine pH Urine WBC (Auto) Urine Creatinine Urine Total Protein Fluid Total Protein Vancomycin Trough Rheumatoid Factor Complement C4 Miscellaneous Test Crossmatch 11/25/16 11/26/16 11/26/16 17:23 00:09 05:13 WBC RBC 2.94 L Hgb 8.4 L Hct 24.6 L MCV MCH MCHC RDW 16.4 H Plt Count Lymph % (Auto) [place] % (Auto) 12.3 H Lymph # [place] # 1.1 H Baso # Seg Neutrophils % Seg Neuts % (Manual) Lymphocytes % (Manual) Monocytes % (Manual) Eosinophils % (Manual) Basophils % (Manual) Nucleated RBC % Seg Neutrophils # Seg Neutrophils # Man Lymphocytes # (Manual) Monocytes # (Manual) Eosinophils # (Manual) PT INR Fibrinogen dRVVT Confirm Interp Factor V Activity POC ABG pH POC ABG pCO2 POC ABG pO2 ABG pO2 ABG HCO3 ABG Base Excess ABG Hemoglobin Oxyhemoglobin Sodium Potassium Chloride Carbon Dioxide BUN Creatinine Glucose POC Glucose 146 H 112 H Lactic Acid Calcium Phosphorus Magnesium Direct Bilirubin AST ALT Alkaline Phosphatase Lactate Dehydrogenase Troponin T C-Reactive Protein Total Protein Albumin Prealbumin Triglycerides Cholesterol LDL Cholesterol Direct HDL Cholesterol Urine pH Urine WBC (Auto) Urine Creatinine Urine Total Protein Fluid Total Protein Vancomycin Trough Rheumatoid Factor Complement C4 Miscellaneous Test Crossmatch 11/26/16 11/26/16 11/26/16 05:13 05:28 11:53 WBC RBC Hgb Hct MCV MCH MCHC RDW Plt Count Lymph % (Auto) [place] % (Auto) Lymph # [place] # Baso # Seg Neutrophils % Seg Neuts % (Manual) Lymphocytes % (Manual) Monocytes % (Manual) Eosinophils % (Manual) Basophils % (Manual) Nucleated RBC % Seg Neutrophils # Seg Neutrophils # Man Lymphocytes # (Manual) Monocytes # (Manual) Eosinophils # (Manual) PT INR Fibrinogen dRVVT Confirm Interp Factor V Activity POC ABG pH POC ABG pCO2 POC ABG pO2 ABG pO2 ABG HCO3 ABG Base Excess ABG Hemoglobin Oxyhemoglobin Sodium Potassium Chloride 97.8 L Carbon Dioxide BUN 37 H Creatinine 2.0 H Glucose 109 H POC Glucose 117 H 111 H Lactic Acid Calcium 7.9 L Phosphorus 1.80 L D Magnesium Direct Bilirubin AST ALT Alkaline Phosphatase Lactate Dehydrogenase Troponin T C-Reactive Protein Total Protein Albumin Prealbumin Triglycerides Cholesterol LDL Cholesterol Direct HDL Cholesterol Urine pH Urine WBC (Auto) Urine Creatinine Urine Total Protein Fluid Total Protein Vancomycin Trough Rheumatoid Factor Complement C4 Miscellaneous Test Crossmatch 11/26/16 11/27/16 11/27/16 17:14 04:50 06:02 WBC RBC Hgb Hct MCV MCH MCHC RDW Plt Count Lymph % (Auto) [place] % (Auto) Lymph # [place] # Baso # Seg Neutrophils % Seg Neuts % (Manual) Lymphocytes % (Manual) Monocytes % (Manual) Eosinophils % (Manual) Basophils % (Manual) Nucleated RBC % Seg Neutrophils # Seg Neutrophils # Man Lymphocytes # (Manual) Monocytes # (Manual) Eosinophils # (Manual) PT INR Fibrinogen dRVVT Confirm Interp Factor V Activity POC ABG pH POC ABG pCO2 POC ABG pO2 ABG pO2 75.2 L ABG HCO3 26.4 H ABG Base Excess ABG Hemoglobin 7.6 L Oxyhemoglobin 94.8 L Sodium Potassium Chloride Carbon Dioxide BUN 49 H Creatinine 2.3 H Glucose POC Glucose 115 H Lactic Acid Calcium Phosphorus 1.50 L Magnesium Direct Bilirubin AST ALT Alkaline Phosphatase Lactate Dehydrogenase Troponin T C-Reactive Protein Total Protein Albumin Prealbumin Triglycerides Cholesterol LDL Cholesterol Direct HDL Cholesterol Urine pH Urine WBC (Auto) Urine Creatinine Urine Total Protein Fluid Total Protein Vancomycin Trough Rheumatoid Factor Complement C4 Miscellaneous Test Crossmatch 11/27/16 11/27/16 11/27/16 06:02 11:25 17:25 WBC 11.6 H RBC 2.75 L Hgb 7.6 L Hct 23.4 L MCV MCH MCHC RDW 16.5 H Plt Count Lymph % (Auto) [place] % (Auto) Lymph # [place] # Baso # Seg Neutrophils % Seg Neuts % (Manual) Lymphocytes % (Manual) Monocytes % (Manual) Eosinophils % (Manual) Basophils % (Manual) Nucleated RBC % Seg Neutrophils # Seg Neutrophils # Man Lymphocytes # (Manual) Monocytes # (Manual) Eosinophils # (Manual) PT INR Fibrinogen dRVVT Confirm Interp Factor V Activity POC ABG pH POC ABG pCO2 POC ABG pO2 ABG pO2 ABG HCO3 ABG Base Excess ABG Hemoglobin Oxyhemoglobin Sodium Potassium Chloride Carbon Dioxide BUN Creatinine Glucose POC Glucose 114 H 126 H Lactic Acid Calcium Phosphorus Magnesium Direct Bilirubin AST ALT Alkaline Phosphatase Lactate Dehydrogenase Troponin T C-Reactive Protein Total Protein Albumin Prealbumin Triglycerides Cholesterol LDL Cholesterol Direct HDL Cholesterol Urine pH Urine WBC (Auto) Urine Creatinine Urine Total Protein Fluid Total Protein Vancomycin Trough Rheumatoid Factor Complement C4 Miscellaneous Test Crossmatch 11/28/16 11/28/16 11/28/16 04:45 05:33 05:44 WBC RBC Hgb Hct MCV MCH MCHC RDW Plt Count Lymph % (Auto) [place] % (Auto) Lymph # [place] # Baso # Seg Neutrophils % Seg Neuts % (Manual) Lymphocytes % (Manual) Monocytes % (Manual) Eosinophils % (Manual) Basophils % (Manual) Nucleated RBC % Seg Neutrophils # Seg Neutrophils # Man Lymphocytes # (Manual) Monocytes # (Manual) Eosinophils # (Manual) PT INR Fibrinogen dRVVT Confirm Interp Factor V Activity POC ABG pH POC ABG pCO2 POC ABG pO2 ABG pO2 99.3 H ABG HCO3 ABG Base Excess ABG Hemoglobin 8.3 L Oxyhemoglobin Sodium Potassium Chloride Carbon Dioxide BUN 63 H Creatinine 2.4 H Glucose 102 H POC Glucose 108 H Lactic Acid Calcium Phosphorus 1.80 L Magnesium Direct Bilirubin AST ALT Alkaline Phosphatase Lactate Dehydrogenase Troponin T C-Reactive Protein Total Protein Albumin Prealbumin Triglycerides Cholesterol LDL Cholesterol Direct HDL Cholesterol Urine pH Urine WBC (Auto) Urine Creatinine Urine Total Protein Fluid Total Protein Vancomycin Trough Rheumatoid Factor Complement C4 Miscellaneous Test Crossmatch 11/28/16 11/28/16 11/28/16 12:31 16:09 23:46 WBC RBC Hgb Hct MCV MCH MCHC RDW Plt Count Lymph % (Auto) [place] % (Auto) Lymph # [place] # Baso # Seg Neutrophils % Seg Neuts % (Manual) Lymphocytes % (Manual) Monocytes % (Manual) Eosinophils % (Manual) Basophils % (Manual) Nucleated RBC % Seg Neutrophils # Seg Neutrophils # Man Lymphocytes # (Manual) Monocytes # (Manual) Eosinophils # (Manual) PT INR Fibrinogen dRVVT Confirm Interp Factor V Activity POC ABG pH POC ABG pCO2 POC ABG pO2 ABG pO2 ABG HCO3 ABG Base Excess ABG Hemoglobin Oxyhemoglobin Sodium Potassium Chloride Carbon Dioxide BUN Creatinine Glucose POC Glucose 126 H 111 H 119 H Lactic Acid Calcium Phosphorus Magnesium Direct Bilirubin AST ALT Alkaline Phosphatase Lactate Dehydrogenase Troponin T C-Reactive Protein Total Protein Albumin Prealbumin Triglycerides Cholesterol LDL Cholesterol Direct HDL Cholesterol Urine pH Urine WBC (Auto) Urine Creatinine Urine Total Protein Fluid Total Protein Vancomycin Trough Rheumatoid Factor Complement C4 Miscellaneous Test Crossmatch 11/29/16 11/29/16 11/29/16 03:33 04:52 05:10 WBC RBC Hgb Hct MCV MCH MCHC RDW Plt Count Lymph % (Auto) [place] % (Auto) Lymph # [place] # Baso # Seg Neutrophils % Seg Neuts % (Manual) Lymphocytes % (Manual) Monocytes % (Manual) Eosinophils % (Manual) Basophils % (Manual) Nucleated RBC % Seg Neutrophils # Seg Neutrophils # Man Lymphocytes # (Manual) Monocytes # (Manual) Eosinophils # (Manual) PT INR Fibrinogen dRVVT Confirm Interp Factor V Activity POC ABG pH POC ABG pCO2 POC ABG pO2 ABG pO2 ABG HCO3 ABG Base Excess ABG Hemoglobin 7.0 L Oxyhemoglobin 94.9 L Sodium Potassium Chloride Carbon Dioxide BUN 73 H Creatinine 2.7 H Glucose POC Glucose 108 H Lactic Acid Calcium Phosphorus Magnesium Direct Bilirubin AST ALT Alkaline Phosphatase Lactate Dehydrogenase Troponin T C-Reactive Protein Total Protein Albumin Prealbumin Triglycerides Cholesterol LDL Cholesterol Direct HDL Cholesterol Urine pH Urine WBC (Auto) Urine Creatinine Urine Total Protein Fluid Total Protein Vancomycin Trough Rheumatoid Factor Complement C4 Miscellaneous Test Crossmatch 11/29/16 11/29/16 11/29/16 12:16 18:05 23:46 WBC RBC Hgb Hct MCV MCH MCHC RDW Plt Count Lymph % (Auto) [place] % (Auto) Lymph # [place] # Baso # Seg Neutrophils % Seg Neuts % (Manual) Lymphocytes % (Manual) Monocytes % (Manual) Eosinophils % (Manual) Basophils % (Manual) Nucleated RBC % Seg Neutrophils # Seg Neutrophils # Man Lymphocytes # (Manual) Monocytes # (Manual) Eosinophils # (Manual) PT INR Fibrinogen dRVVT Confirm Interp Factor V Activity POC ABG pH POC ABG pCO2 POC ABG pO2 ABG pO2 ABG HCO3 ABG Base Excess ABG Hemoglobin Oxyhemoglobin Sodium Potassium Chloride Carbon Dioxide BUN Creatinine Glucose POC Glucose 133 H 146 H 141 H Lactic Acid Calcium Phosphorus Magnesium Direct Bilirubin AST ALT Alkaline Phosphatase Lactate Dehydrogenase Troponin T C-Reactive Protein Total Protein Albumin Prealbumin Triglycerides Cholesterol LDL Cholesterol Direct HDL Cholesterol Urine pH Urine WBC (Auto) Urine Creatinine Urine Total Protein Fluid Total Protein Vancomycin Trough Rheumatoid Factor Complement C4 Miscellaneous Test Crossmatch 11/30/16 11/30/16 11/30/16 04:17 04:17 04:32 WBC 12.0 H RBC 2.80 L Hgb 7.8 L Hct 23.6 L MCV MCH MCHC RDW 16.6 H Plt Count Lymph % (Auto) [place] % (Auto) 11.3 H Lymph # [place] # 1.4 H Baso # Seg Neutrophils % Seg Neuts % (Manual) Lymphocytes % (Manual) Monocytes % (Manual) Eosinophils % (Manual) Basophils % (Manual) Nucleated RBC % Seg Neutrophils # 8.2 H Seg Neutrophils # Man Lymphocytes # (Manual) Monocytes # (Manual) Eosinophils # (Manual) PT INR Fibrinogen dRVVT Confirm Interp Factor V Activity POC ABG pH POC ABG pCO2 POC ABG pO2 ABG pO2 ABG HCO3 ABG Base Excess ABG Hemoglobin Oxyhemoglobin Sodium 169 H* D Potassium 5.1 H Chloride 121.5 H Carbon Dioxide BUN 34 H Creatinine 1.3 H D Glucose 133 H POC Glucose 131 H Lactic Acid Calcium 10.3 H Phosphorus Magnesium Direct Bilirubin AST ALT Alkaline Phosphatase Lactate Dehydrogenase Troponin T C-Reactive Protein Total Protein Albumin Prealbumin Triglycerides Cholesterol LDL Cholesterol Direct HDL Cholesterol Urine pH Urine WBC (Auto) Urine Creatinine Urine Total Protein Fluid Total Protein Vancomycin Trough Rheumatoid Factor Complement C4 Miscellaneous Test Crossmatch 11/30/16 11/30/16 11/30/16 05:45 11:10 17:26 WBC RBC Hgb Hct MCV MCH MCHC RDW Plt Count Lymph % (Auto) [place] % (Auto) Lymph # [place] # Baso # Seg Neutrophils % Seg Neuts % (Manual) Lymphocytes % (Manual) Monocytes % (Manual) Eosinophils % (Manual) Basophils % (Manual) Nucleated RBC % Seg Neutrophils # Seg Neutrophils # Man Lymphocytes # (Manual) Monocytes # (Manual) Eosinophils # (Manual) PT INR Fibrinogen dRVVT Confirm Interp Factor V Activity POC ABG pH POC ABG pCO2 POC ABG pO2 ABG pO2 ABG HCO3 ABG Base Excess ABG Hemoglobin Oxyhemoglobin Sodium Potassium Chloride Carbon Dioxide BUN 45 H Creatinine 1.6 H Glucose 131 H POC Glucose 146 H 134 H Lactic Acid Calcium Phosphorus Magnesium Direct Bilirubin AST ALT Alkaline Phosphatase Lactate Dehydrogenase Troponin T C-Reactive Protein Total Protein Albumin Prealbumin Triglycerides Cholesterol LDL Cholesterol Direct HDL Cholesterol Urine pH Urine WBC (Auto) Urine Creatinine Urine Total Protein Fluid Total Protein Vancomycin Trough Rheumatoid Factor Complement C4 Miscellaneous Test Crossmatch 11/30/16 12/01/16 12/01/16 23:35 00:06 03:35 WBC RBC Hgb Hct MCV MCH MCHC RDW Plt Count Lymph % (Auto) [place] % (Auto) Lymph # [place] # Baso # Seg Neutrophils % Seg Neuts % (Manual) Lymphocytes % (Manual) Monocytes % (Manual) Eosinophils % (Manual) Basophils % (Manual) Nucleated RBC % Seg Neutrophils # Seg Neutrophils # Man Lymphocytes # (Manual) Monocytes # (Manual) Eosinophils # (Manual) PT INR Fibrinogen dRVVT Confirm Interp Factor V Activity POC ABG pH POC ABG pCO2 POC ABG pO2 ABG pO2 ABG HCO3 ABG Base Excess ABG Hemoglobin 6.9 L Oxyhemoglobin Sodium Potassium Chloride Carbon Dioxide BUN 58 H Creatinine 1.8 H Glucose 146 H POC Glucose 151 H Lactic Acid Calcium Phosphorus Magnesium Direct Bilirubin AST ALT Alkaline Phosphatase Lactate Dehydrogenase Troponin T C-Reactive Protein Total Protein Albumin Prealbumin Triglycerides Cholesterol LDL Cholesterol Direct HDL Cholesterol Urine pH Urine WBC (Auto) Urine Creatinine Urine Total Protein Fluid Total Protein Vancomycin Trough Rheumatoid Factor Complement C4 Miscellaneous Test Crossmatch 12/01/16 12/01/16 12/01/16 03:35 05:47 11:52 WBC 12.3 H RBC 2.82 L Hgb 7.8 L Hct 23.7 L MCV MCH MCHC RDW 16.7 H Plt Count Lymph % (Auto) [place] % (Auto) 9.8 H Lymph # [place] # 1.2 H Baso # Seg Neutrophils % Seg Neuts % (Manual) Lymphocytes % (Manual) Monocytes % (Manual) Eosinophils % (Manual) Basophils % (Manual) Nucleated RBC % Seg Neutrophils # 8.4 H Seg Neutrophils # Man Lymphocytes # (Manual) Monocytes # (Manual) Eosinophils # (Manual) PT INR Fibrinogen dRVVT Confirm Interp Factor V Activity POC ABG pH POC ABG pCO2 POC ABG pO2 ABG pO2 ABG HCO3 ABG Base Excess ABG Hemoglobin Oxyhemoglobin Sodium Potassium Chloride Carbon Dioxide BUN Creatinine Glucose POC Glucose 152 H 152 H Lactic Acid Calcium Phosphorus Magnesium Direct Bilirubin AST ALT Alkaline Phosphatase Lactate Dehydrogenase Troponin T C-Reactive Protein Total Protein Albumin Prealbumin Triglycerides Cholesterol LDL Cholesterol Direct HDL Cholesterol Urine pH Urine WBC (Auto) Urine Creatinine Urine Total Protein Fluid Total Protein Vancomycin Trough Rheumatoid Factor Complement C4 Miscellaneous Test Crossmatch 12/01/16 12/01/16 12/02/16 17:40 23:41 05:00 WBC RBC Hgb Hct MCV MCH MCHC RDW Plt Count Lymph % (Auto) [place] % (Auto) Lymph # [place] # Baso # Seg Neutrophils % Seg Neuts % (Manual) Lymphocytes % (Manual) Monocytes % (Manual) Eosinophils % (Manual) Basophils % (Manual) Nucleated RBC % Seg Neutrophils # Seg Neutrophils # Man Lymphocytes # (Manual) Monocytes # (Manual) Eosinophils # (Manual) PT INR Fibrinogen dRVVT Confirm Interp Factor V Activity POC ABG pH POC ABG pCO2 POC ABG pO2 ABG pO2 ABG HCO3 ABG Base Excess ABG Hemoglobin Oxyhemoglobin Sodium Potassium Chloride Carbon Dioxide BUN 45 H Creatinine Glucose 115 H POC Glucose 140 H 144 H Lactic Acid Calcium Phosphorus Magnesium Direct Bilirubin AST ALT Alkaline Phosphatase Lactate Dehydrogenase Troponin T C-Reactive Protein Total Protein Albumin Prealbumin Triglycerides Cholesterol LDL Cholesterol Direct HDL Cholesterol Urine pH Urine WBC (Auto) Urine Creatinine Urine Total Protein Fluid Total Protein Vancomycin Trough Rheumatoid Factor Complement C4 Miscellaneous Test Crossmatch 12/02/16 12/02/16 12/02/16 05:31 11:20 17:38 WBC RBC Hgb Hct MCV MCH MCHC RDW Plt Count Lymph % (Auto) [place] % (Auto) Lymph # [place] # Baso # Seg Neutrophils % Seg Neuts % (Manual) Lymphocytes % (Manual) Monocytes % (Manual) Eosinophils % (Manual) Basophils % (Manual) Nucleated RBC % Seg Neutrophils # Seg Neutrophils # Man Lymphocytes # (Manual) Monocytes # (Manual) Eosinophils # (Manual) PT INR Fibrinogen dRVVT Confirm Interp Factor V Activity POC ABG pH POC ABG pCO2 POC ABG pO2 ABG pO2 ABG HCO3 ABG Base Excess ABG Hemoglobin Oxyhemoglobin Sodium Potassium Chloride Carbon Dioxide BUN Creatinine Glucose POC Glucose 136 H 177 H 139 H Lactic Acid Calcium Phosphorus Magnesium Direct Bilirubin AST ALT Alkaline Phosphatase Lactate Dehydrogenase Troponin T C-Reactive Protein Total Protein Albumin Prealbumin Triglycerides Cholesterol LDL Cholesterol Direct HDL Cholesterol Urine pH Urine WBC (Auto) Urine Creatinine Urine Total Protein Fluid Total Protein Vancomycin Trough Rheumatoid Factor Complement C4 Miscellaneous Test Crossmatch 12/02/16 12/03/16 12/03/16 23:43 04:00 04:00 WBC 20.4 H RBC 2.74 L Hgb 7.4 L Hct 23.6 L MCV MCH 27 L MCHC RDW 17.1 H Plt Count Lymph % (Auto) [place] % (Auto) Lymph # [place] # Baso # Seg Neutrophils % Seg Neuts % (Manual) 31.0 L Lymphocytes % (Manual) Monocytes % (Manual) Eosinophils % (Manual) Basophils % (Manual) Nucleated RBC % Seg Neutrophils # Seg Neutrophils # Man Lymphocytes # (Manual) Monocytes # (Manual) Eosinophils # (Manual) PT INR Fibrinogen dRVVT Confirm Interp Factor V Activity POC ABG pH POC ABG pCO2 POC ABG pO2 ABG pO2 ABG HCO3 ABG Base Excess ABG Hemoglobin Oxyhemoglobin Sodium Potassium Chloride Carbon Dioxide BUN 61 H Creatinine 1.6 H Glucose 119 H POC Glucose 158 H Lactic Acid Calcium Phosphorus Magnesium Direct Bilirubin AST ALT Alkaline Phosphatase Lactate Dehydrogenase Troponin T C-Reactive Protein Total Protein Albumin Prealbumin Triglycerides Cholesterol LDL Cholesterol Direct HDL Cholesterol Urine pH Urine WBC (Auto) Urine Creatinine Urine Total Protein Fluid Total Protein Vancomycin Trough Rheumatoid Factor Complement C4 Miscellaneous Test Crossmatch 12/03/16 12/03/16 12/03/16 05:02 12:11 18:16 WBC RBC Hgb Hct MCV MCH MCHC RDW Plt Count Lymph % (Auto) [place] % (Auto) Lymph # [place] # Baso # Seg Neutrophils % Seg Neuts % (Manual) Lymphocytes % (Manual) Monocytes % (Manual) Eosinophils % (Manual) Basophils % (Manual) Nucleated RBC % Seg Neutrophils # Seg Neutrophils # Man Lymphocytes # (Manual) Monocytes # (Manual) Eosinophils # (Manual) PT INR Fibrinogen dRVVT Confirm Interp Factor V Activity POC ABG pH POC ABG pCO2 POC ABG pO2 ABG pO2 ABG HCO3 ABG Base Excess ABG Hemoglobin Oxyhemoglobin Sodium Potassium Chloride Carbon Dioxide BUN Creatinine Glucose POC Glucose 146 H 157 H 124 H Lactic Acid Calcium Phosphorus Magnesium Direct Bilirubin AST ALT Alkaline Phosphatase Lactate Dehydrogenase Troponin T C-Reactive Protein Total Protein Albumin Prealbumin Triglycerides Cholesterol LDL Cholesterol Direct HDL Cholesterol Urine pH Urine WBC (Auto) Urine Creatinine Urine Total Protein Fluid Total Protein Vancomycin Trough Rheumatoid Factor Complement C4 Miscellaneous Test Crossmatch 12/03/16 12/04/16 12/04/16 23:41 04:00 04:45 WBC RBC Hgb Hct MCV MCH MCHC RDW Plt Count Lymph % (Auto) [place] % (Auto) Lymph # [place] # Baso # Seg Neutrophils % Seg Neuts % (Manual) Lymphocytes % (Manual) Monocytes % (Manual) Eosinophils % (Manual) Basophils % (Manual) Nucleated RBC % Seg Neutrophils # Seg Neutrophils # Man Lymphocytes # (Manual) Monocytes # (Manual) Eosinophils # (Manual) PT INR Fibrinogen dRVVT Confirm Interp Factor V Activity POC ABG pH POC ABG pCO2 POC ABG pO2 ABG pO2 ABG HCO3 ABG Base Excess ABG Hemoglobin Oxyhemoglobin Sodium Potassium Chloride Carbon Dioxide BUN 76 H Creatinine 1.6 H Glucose POC Glucose 130 H 136 H Lactic Acid Calcium Phosphorus Magnesium Direct Bilirubin AST ALT Alkaline Phosphatase 155 H Lactate Dehydrogenase Troponin T C-Reactive Protein Total Protein 5.5 L Albumin 1.5 L Prealbumin Triglycerides Cholesterol LDL Cholesterol Direct HDL Cholesterol Urine pH Urine WBC (Auto) Urine Creatinine Urine Total Protein Fluid Total Protein Vancomycin Trough Rheumatoid Factor Complement C4 Miscellaneous Test Crossmatch 12/05/16 12/05/16 12/05/16 00:10 05:00 05:18 WBC RBC Hgb Hct MCV MCH MCHC RDW Plt Count Lymph % (Auto) [place] % (Auto) Lymph # [place] # Baso # Seg Neutrophils % Seg Neuts % (Manual) Lymphocytes % (Manual) Monocytes % (Manual) Eosinophils % (Manual) Basophils % (Manual) Nucleated RBC % Seg Neutrophils # Seg Neutrophils # Man Lymphocytes # (Manual) Monocytes # (Manual) Eosinophils # (Manual) PT INR Fibrinogen dRVVT Confirm Interp Factor V Activity POC ABG pH POC ABG pCO2 POC ABG pO2 ABG pO2 ABG HCO3 ABG Base Excess ABG Hemoglobin Oxyhemoglobin Sodium Potassium Chloride Carbon Dioxide 21 L BUN 85 H Creatinine 1.9 H Glucose 131 H POC Glucose 124 H 154 H Lactic Acid Calcium Phosphorus Magnesium Direct Bilirubin AST ALT Alkaline Phosphatase Lactate Dehydrogenase Troponin T C-Reactive Protein Total Protein Albumin Prealbumin Triglycerides Cholesterol LDL Cholesterol Direct HDL Cholesterol Urine pH Urine WBC (Auto) Urine Creatinine Urine Total Protein Fluid Total Protein Vancomycin Trough Rheumatoid Factor Complement C4 Miscellaneous Test Crossmatch 12/05/16 Unknown WBC RBC Hgb Hct MCV MCH MCHC RDW Plt Count Lymph % (Auto) [place] % (Auto) Lymph # [place] # Baso # Seg Neutrophils % Seg Neuts % (Manual) Lymphocytes % (Manual) Monocytes % (Manual) Eosinophils % (Manual) Basophils % (Manual) Nucleated RBC % Seg Neutrophils # Seg Neutrophils # Man Lymphocytes # (Manual) Monocytes # (Manual) Eosinophils # (Manual) PT INR Fibrinogen dRVVT Confirm Interp Factor V Activity POC ABG pH POC ABG pCO2 POC ABG pO2 ABG pO2 75.2 L ABG HCO3 ABG Base Excess -3.4 L ABG Hemoglobin 7.4 L Oxyhemoglobin 94.5 L Sodium Potassium Chloride Carbon Dioxide BUN Creatinine Glucose POC Glucose Lactic Acid Calcium Phosphorus Magnesium Direct Bilirubin AST ALT Alkaline Phosphatase Lactate Dehydrogenase Troponin T C-Reactive Protein Total Protein Albumin Prealbumin Triglycerides Cholesterol LDL Cholesterol Direct HDL Cholesterol Urine pH Urine WBC (Auto) Urine Creatinine Urine Total Protein Fluid Total Protein Vancomycin Trough Rheumatoid Factor Complement C4 Miscellaneous Test Crossmatch Allied health notes reviewed: RT
[2016-12-05] MEDS: HEPARIN SUB-Q SCH ×2 (10:46→21:00)
[2016-12-05] MEDS: PROTONIX FEEDTUBE SCH (10:47)
[2016-12-05] MEDS: NORVASC PO SCH (10:47)
--- NOTE | 2016-12-05 11:55 | Progress Note ---
Assessment and Plan Patient with brain injury requiring prolongued mechanical ventilation. Drainage from abdominal wounds currently being managed with ostomy appliances. Continue to do so for now until ethiology of drainage is ellucidated. Regardless, she is in no condition to undergo any sort of intervention for them, so at this point, recommend conservative management with NPO/TPN and wound monitor/dressing changes. Subjective Date of service: 12/05/16 Patient Reports: Positive: no new complaints (Non-verbal) Objective Vital Signs - 12hr 12/05/16 12/05/16 12/05/16 00:00 00:13 00:20 Temperature Pulse Rate 123 H 125 H Pulse Rate [ Bilateral Throughout] Pulse Rate [ 118 H From Monitor] Respiratory 18 Rate Respiratory Rate [Bilateral Throughout] Blood Pressure 150/96 129/96 O2 Sat by Pulse 100 100 Oximetry O2 Sat by Pulse 100 Oximetry [ Assessment] 12/05/16 12/05/16 12/05/16 00:30 01:00 01:30 Temperature Pulse Rate 121 H 119 H 118 H Pulse Rate [ Bilateral Throughout] Pulse Rate [ From Monitor] Respiratory 21 22 20 Rate Respiratory Rate [Bilateral Throughout] Blood Pressure 142/97 140/98 158/96 O2 Sat by Pulse 99 98 100 Oximetry O2 Sat by Pulse Oximetry [ Assessment] 12/05/16 12/05/16 12/05/16 01:50 01:59 02:00 Temperature Pulse Rate 119 H Pulse Rate [ 115 H 113 H Bilateral Throughout] Pulse Rate [ From Monitor] Respiratory 22 Rate Respiratory 13 14 Rate [Bilateral Throughout] Blood Pressure 152/97 O2 Sat by Pulse 100 Oximetry O2 Sat by Pulse Oximetry [ Assessment] 12/05/16 12/05/16 12/05/16 02:30 02:47 03:00 Temperature 99.8 F H Pulse Rate 117 H 122 H 110 H Pulse Rate [ Bilateral Throughout] Pulse Rate [ From Monitor] Respiratory 17 20 Rate Respiratory Rate [Bilateral Throughout] Blood Pressure 152/86 157/96 145/86 O2 Sat by Pulse 100 97 Oximetry O2 Sat by Pulse Oximetry [ Assessment] 12/05/16 12/05/16 12/05/16 03:29 03:30 04:00 Temperature Pulse Rate 107 H 106 H Pulse Rate [ Bilateral Throughout] Pulse Rate [ 112 H From Monitor] Respiratory 20 24 Rate Respiratory Rate [Bilateral Throughout] Blood Pressure 125/75 125/75 O2 Sat by Pulse 96 96 100 Oximetry O2 Sat by Pulse Oximetry [ Assessment] 12/05/16 12/05/16 12/05/16 04:01 04:30 05:01 Temperature Pulse Rate 106 H 112 H 117 H Pulse Rate [ Bilateral Throughout] Pulse Rate [ From Monitor] Respiratory 28 H 24 13 Rate Respiratory Rate [Bilateral Throughout] Blood Pressure 147/78 145/81 159/85 O2 Sat by Pulse 98 99 99 Oximetry O2 Sat by Pulse Oximetry [ Assessment] 12/05/16 12/05/16 12/05/16 05:31 06:00 06:30 Temperature Pulse Rate 112 H 114 H 115 H Pulse Rate [ Bilateral Throughout] Pulse Rate [ From Monitor] Respiratory 23 24 19 Rate Respiratory Rate [Bilateral Throughout] Blood Pressure 153/80 147/83 148/77 O2 Sat by Pulse 99 98 97 Oximetry O2 Sat by Pulse Oximetry [ Assessment] 12/05/16 12/05/16 12/05/16 06:37 06:38 07:01 Temperature Pulse Rate 114 H 113 H 103 H Pulse Rate [ Bilateral Throughout] Pulse Rate [ From Monitor] Respiratory 16 Rate Respiratory Rate [Bilateral Throughout] Blood Pressure 148/77 148/77 133/70 O2 Sat by Pulse 100 Oximetry O2 Sat by Pulse Oximetry [ Assessment] 12/05/16 12/05/16 12/05/16 07:30 07:57 08:00 Temperature 98.9 F Pulse Rate 100 H 102 H Pulse Rate [ Bilateral Throughout] Pulse Rate [ From Monitor] Respiratory 16 20 Rate Respiratory Rate [Bilateral Throughout] Blood Pressure 128/63 134/71 O2 Sat by Pulse 100 100 100 Oximetry O2 Sat by Pulse Oximetry [ Assessment] 12/05/16 12/05/16 12/05/16 08:30 08:43 08:45 Temperature Pulse Rate 101 H 101 H Pulse Rate [ 101 H Bilateral Throughout] Pulse Rate [ From Monitor] Respiratory 20 Rate Respiratory 21 Rate [Bilateral Throughout] Blood Pressure 130/74 130/74 O2 Sat by Pulse 100 99 Oximetry O2 Sat by Pulse Oximetry [ Assessment] 12/05/16 12/05/16 12/05/16 09:00 09:02 09:30 Temperature Pulse Rate 105 H 107 H Pulse Rate [ 103 H Bilateral Throughout] Pulse Rate [ From Monitor] Respiratory 17 13 Rate Respiratory 18 Rate [Bilateral Throughout] Blood Pressure 133/80 122/69 O2 Sat by Pulse 100 99 Oximetry O2 Sat by Pulse Oximetry [ Assessment] 12/05/16 12/05/16 12/05/16 10:00 10:30 11:00 Temperature Pulse Rate 107 H 103 H 105 H Pulse Rate [ Bilateral Throughout] Pulse Rate [ From Monitor] Respiratory 21 24 22 Rate Respiratory Rate [Bilateral Throughout] Blood Pressure 133/73 120/66 137/76 O2 Sat by Pulse 98 99 100 Oximetry O2 Sat by Pulse Oximetry [ Assessment] 12/05/16 11:49 Temperature Pulse Rate 110 H Pulse Rate [ Bilateral Throughout] Pulse Rate [ From Monitor] Respiratory Rate Respiratory Rate [Bilateral Throughout] Blood Pressure 141/79 O2 Sat by Pulse 98 Oximetry O2 Sat by Pulse Oximetry [ Assessment] - General physical appearance well developed, no distress, chronically ill, obese - Eyes PERRL - Neck trachea midline - Respiratory normal expansion, other (On mechanical ventilation) - Abdomen soft, bowel sounds normal, not distended, not rebound, not guarding, not rigid, wound (Drainage from RLQ wound and epigastric wound) - Labs 12/03/16 04:00 12/05/16 05:00 Diabetes panel 12/05/16 Range/Units 05:00 Sodium 140 (137-145) mmol/L Potassium 4.1 (3.6-5.0) mmol/L Chloride 100.5 (98-107) mmol/L Carbon Dioxide 21 L (22-30) mmol/L BUN 85 H (7-17) mg/dL Creatinine 1.9 H (0.7-1.2) mg/dL Glucose 131 H (65-100) mg/dL Calcium 9.3 (8.4-10.2) mg/dL Calcium panel 12/05/16 Range/Units 05:00 Calcium 9.3 (8.4-10.2) mg/dL Phosphorus 4.50 (2.5-4.5) mg/dL Pituitary panel 12/05/16 Range/Units 05:00 Sodium 140 (137-145) mmol/L Potassium 4.1 (3.6-5.0) mmol/L Chloride 100.5 (98-107) mmol/L Carbon Dioxide 21 L (22-30) mmol/L BUN 85 H (7-17) mg/dL Creatinine 1.9 H (0.7-1.2) mg/dL Glucose 131 H (65-100) mg/dL Calcium 9.3 (8.4-10.2) mg/dL Adrenal panel 12/05/16 Range/Units 05:00 Sodium 140 (137-145) mmol/L Potassium 4.1 (3.6-5.0) mmol/L Chloride 100.5 (98-107) mmol/L Carbon Dioxide 21 L (22-30) mmol/L BUN 85 H (7-17) mg/dL Creatinine 1.9 H (0.7-1.2) mg/dL Glucose 131 H (65-100) mg/dL Calcium 9.3 (8.4-10.2) mg/dL
--- NOTE | 2016-12-05 12:08 | Progress Note ---
Assessment and Plan Acute Hypoxemic Respiratory Failure (now with exacerbation and back on MVS) Hypertension (unable to receive p.o. 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 and get back to us early next week) - s/p dialysis yesterday - keep on with daily PSV trials and / or T-piece as tolerated - Placed PICC line for TPN administration (continue TPN; NPO except for meds) - continue scopolamine for secretion control - continue to wean FiO2 for sats > 94% - continue bronchodilators and pulmonary toilet - VAP bundle addressed - continue prn IV metorolol - continue AB's (Vancomycin) till stop date per ID recs - continue metoprolol and amlodipine (rate control better) - continue HD/UF per nephrology (for HD/UF session yesterday) - continue to follow electrolytes and correct as necessary - continue GI & VTE prophylaxis - Continue flu & pneumovax per protocol ... she remains critically ill on life sustaining interventions including MVS and at risk for further deterioration including ....35' CCT today without overlap Subjective Date of service: 12/05/16 Principal diagnosis: Acute resp failure on MVS; S/P Acute CVA; Acute Encephalopathy; JUANITA Interval history: Patient is seen today for: Acute resp failure on MVS; S/P Acute CVA; Acute Encephalopathy; JUANITA Seen and examined at bedside; 24hour events reviewed; nursing and respiratory care staff consulted; no adverse overnight events reported to me; Objective Vital Signs - 12hr 12/05/16 12/05/16 12/05/16 00:13 00:20 00:30 Temperature Pulse Rate 125 H 121 H Pulse Rate [ Bilateral Throughout] Pulse Rate [ From Monitor] Respiratory 21 Rate Respiratory Rate [Bilateral Throughout] Blood Pressure 129/96 142/97 O2 Sat by Pulse 100 99 Oximetry O2 Sat by Pulse 100 Oximetry [ Assessment] 12/05/16 12/05/16 12/05/16 01:00 01:30 01:50 Temperature Pulse Rate 119 H 118 H Pulse Rate [ 115 H Bilateral Throughout] Pulse Rate [ From Monitor] Respiratory 22 20 Rate Respiratory 13 Rate [Bilateral Throughout] Blood Pressure 140/98 158/96 O2 Sat by Pulse 98 100 Oximetry O2 Sat by Pulse Oximetry [ Assessment] 12/05/16 12/05/16 12/05/16 01:59 02:00 02:30 Temperature Pulse Rate 119 H 117 H Pulse Rate [ 113 H Bilateral Throughout] Pulse Rate [ From Monitor] Respiratory 22 17 Rate Respiratory 14 Rate [Bilateral Throughout] Blood Pressure 152/97 152/86 O2 Sat by Pulse 100 100 Oximetry O2 Sat by Pulse Oximetry [ Assessment] 12/05/16 12/05/16 12/05/16 02:47 03:00 03:29 Temperature 99.8 F H Pulse Rate 122 H 110 H 107 H Pulse Rate [ Bilateral Throughout] Pulse Rate [ From Monitor] Respiratory 20 Rate Respiratory Rate [Bilateral Throughout] Blood Pressure 157/96 145/86 125/75 O2 Sat by Pulse 97 96 Oximetry O2 Sat by Pulse Oximetry [ Assessment] 12/05/16 12/05/16 12/05/16 03:30 04:00 04:01 Temperature Pulse Rate 106 H 106 H Pulse Rate [ Bilateral Throughout] Pulse Rate [ 112 H From Monitor] Respiratory 20 24 28 H Rate Respiratory Rate [Bilateral Throughout] Blood Pressure 125/75 147/78 O2 Sat by Pulse 96 100 98 Oximetry O2 Sat by Pulse Oximetry [ Assessment] 12/05/16 12/05/16 12/05/16 04:30 05:01 05:31 Temperature Pulse Rate 112 H 117 H 112 H Pulse Rate [ Bilateral Throughout] Pulse Rate [ From Monitor] Respiratory 24 13 23 Rate Respiratory Rate [Bilateral Throughout] Blood Pressure 145/81 159/85 153/80 O2 Sat by Pulse 99 99 99 Oximetry O2 Sat by Pulse Oximetry [ Assessment] 12/05/16 12/05/16 12/05/16 06:00 06:30 06:37 Temperature Pulse Rate 114 H 115 H 114 H Pulse Rate [ Bilateral Throughout] Pulse Rate [ From Monitor] Respiratory 24 19 Rate Respiratory Rate [Bilateral Throughout] Blood Pressure 147/83 148/77 148/77 O2 Sat by Pulse 98 97 Oximetry O2 Sat by Pulse Oximetry [ Assessment] 12/05/16 12/05/16 12/05/16 06:38 07:01 07:30 Temperature Pulse Rate 113 H 103 H 100 H Pulse Rate [ Bilateral Throughout] Pulse Rate [ From Monitor] Respiratory 16 16 Rate Respiratory Rate [Bilateral Throughout] Blood Pressure 148/77 133/70 128/63 O2 Sat by Pulse 100 100 Oximetry O2 Sat by Pulse Oximetry [ Assessment] 12/05/16 12/05/16 12/05/16 07:57 08:00 08:30 Temperature 98.9 F Pulse Rate 102 H 101 H Pulse Rate [ Bilateral Throughout] Pulse Rate [ From Monitor] Respiratory 20 20 Rate Respiratory Rate [Bilateral Throughout] Blood Pressure 134/71 130/74 O2 Sat by Pulse 100 100 100 Oximetry O2 Sat by Pulse Oximetry [ Assessment] 12/05/16 12/05/16 12/05/16 08:43 08:45 09:00 Temperature Pulse Rate 101 H 105 H Pulse Rate [ 101 H Bilateral Throughout] Pulse Rate [ From Monitor] Respiratory 17 Rate Respiratory 21 Rate [Bilateral Throughout] Blood Pressure 130/74 133/80 O2 Sat by Pulse 99 100 Oximetry O2 Sat by Pulse Oximetry [ Assessment] 12/05/16 12/05/16 12/05/16 09:02 09:30 10:00 Temperature Pulse Rate 107 H 107 H Pulse Rate [ 103 H Bilateral Throughout] Pulse Rate [ From Monitor] Respiratory 13 21 Rate Respiratory 18 Rate [Bilateral Throughout] Blood Pressure 122/69 133/73 O2 Sat by Pulse 99 98 Oximetry O2 Sat by Pulse Oximetry [ Assessment] 12/05/16 12/05/16 12/05/16 10:30 11:00 11:49 Temperature Pulse Rate 103 H 105 H 110 H Pulse Rate [ Bilateral Throughout] Pulse Rate [ From Monitor] Respiratory 24 22 Rate Respiratory Rate [Bilateral Throughout] Blood Pressure 120/66 137/76 141/79 O2 Sat by Pulse 99 100 98 Oximetry O2 Sat by Pulse Oximetry [ Assessment] Constitutional: appears uncomfortable, other (not tracking) Eyes: non-icteric, other (tracheostomy tube in midline of neck) ENT: oropharynx moist Neck: supple, no lymphadenopathy, no JVD, other (no thyromegaly) Effort: mildly labored Ascultation: Bilateral: clear, diminished breath sounds (bases), rales, rhonchi (and referred upper airway sounds) Percussion: Bilateral: dull (bases) Cardiovascular: regular rate and rhythm, other (no rubs / murmurs) Gastrointestinal: hypoactive bowel sounds, soft, non-tender, non-distended, other (RLQ & LUQ stomas with colostomy bags) Integumentary: other (healing back burn-like injury; poor turgor) Extremities: no cyanosis, no edema, pulses normal, no ischemia or petechiae Neurologic: pupils equal and round, unable to assess, other (encephalopathic) Psychiatric: other (unable to assess) CBC and BMP: 12/03/16 04:00 12/05/16 05:00 ABG, PT/INR, D-dimer: ABG POC ABG pH 7.487 (7.35-7.45) H 11/25/16 14:12 ABG pH 7.450 pH Units (7.350-7.450) 12/05/16 Unknown POC ABG pCO2 39.0 (35-45) 11/25/16 14:12 ABG pCO2 29.6 mm Hg 12/05/16 Unknown POC ABG pO2 153 (80-105) H 11/25/16 14:12 ABG pO2 75.2 mm Hg (80.0-90.0) L 12/05/16 Unknown POC ABG HCO3 29.5 11/25/16 14:12 POC ABG Total CO2 31 11/25/16 14:12 POC ABG O2 Sat 99 11/25/16 14:12 ABG O2 Saturation 96.8 % (95.0-99.0) 12/05/16 Unknown PT/INR, D-dimer PT 16.8 Sec. (12.2-14.9) H 11/17/16 03:20 INR 1.37 (0.87-1.13) H 11/17/16 03:20 Abnormal lab findings: Abnormal Labs 09/03/16 09/03/16 09/03/16 12:12 15:07 16:20 WBC RBC Hgb Hct MCV MCH MCHC RDW Plt Count Lymph % (Auto) [place] % (Auto) Lymph # [place] # Baso # Seg Neutrophils % Seg Neuts % (Manual) Lymphocytes % (Manual) Monocytes % (Manual) Eosinophils % (Manual) Basophils % (Manual) Nucleated RBC % Seg Neutrophils # Seg Neutrophils # Man Lymphocytes # (Manual) Monocytes # (Manual) Eosinophils # (Manual) PT INR Fibrinogen dRVVT Confirm Interp Factor V Activity POC ABG pH 7.452 H POC ABG pCO2 POC ABG pO2 ABG pO2 ABG HCO3 ABG Base Excess ABG Hemoglobin Oxyhemoglobin Sodium Potassium Chloride Carbon Dioxide BUN Creatinine Glucose POC Glucose 178 H Lactic Acid Calcium Phosphorus 2.20 L Magnesium 1.60 L Direct Bilirubin AST ALT Alkaline Phosphatase Lactate Dehydrogenase Troponin T C-Reactive Protein Total Protein Albumin Prealbumin Triglycerides Cholesterol LDL Cholesterol Direct HDL Cholesterol Urine pH Urine WBC (Auto) Urine Creatinine Urine Total Protein Fluid Total Protein Vancomycin Trough Rheumatoid Factor Complement C4 Miscellaneous Test Crossmatch 09/03/16 09/03/16 09/03/16 17:57 17:58 23:50 WBC RBC Hgb Hct MCV MCH MCHC RDW Plt Count Lymph % (Auto) [place] % (Auto) Lymph # [place] # Baso # Seg Neutrophils % Seg Neuts % (Manual) Lymphocytes % (Manual) Monocytes % (Manual) Eosinophils % (Manual) Basophils % (Manual) Nucleated RBC % Seg Neutrophils # Seg Neutrophils # Man Lymphocytes # (Manual) Monocytes # (Manual) Eosinophils # (Manual) PT INR Fibrinogen dRVVT Confirm Interp Factor V Activity POC ABG pH POC ABG pCO2 POC ABG pO2 ABG pO2 ABG HCO3 ABG Base Excess ABG Hemoglobin Oxyhemoglobin Sodium Potassium Chloride Carbon Dioxide BUN Creatinine Glucose POC Glucose 162 H 145 H Lactic Acid Calcium Phosphorus 2.30 L Magnesium Direct Bilirubin AST ALT Alkaline Phosphatase Lactate Dehydrogenase Troponin T C-Reactive Protein Total Protein Albumin Prealbumin Triglycerides Cholesterol LDL Cholesterol Direct HDL Cholesterol Urine pH Urine WBC (Auto) Urine Creatinine Urine Total Protein Fluid Total Protein Vancomycin Trough Rheumatoid Factor Complement C4 Miscellaneous Test Crossmatch 09/04/16 09/04/16 09/04/16 03:31 03:31 05:42 WBC RBC Hgb 9.7 L D Hct MCV 72 L MCH 23 L MCHC RDW 17.5 H Plt Count Lymph % (Auto) 11.1 L [place] % (Auto) Lymph # [place] # Baso # Seg Neutrophils % 84.3 H Seg Neuts % (Manual) Lymphocytes % (Manual) Monocytes % (Manual) Eosinophils % (Manual) Basophils % (Manual) Nucleated RBC % Seg Neutrophils # 8.9 H Seg Neutrophils # Man Lymphocytes # (Manual) Monocytes # (Manual) Eosinophils # (Manual) PT INR Fibrinogen dRVVT Confirm Interp Factor V Activity POC ABG pH POC ABG pCO2 POC ABG pO2 ABG pO2 ABG HCO3 ABG Base Excess ABG Hemoglobin Oxyhemoglobin Sodium 135 L Potassium 2.9 L* Chloride 97.2 L Carbon Dioxide 19 L BUN Creatinine 1.7 H Glucose 170 H POC Glucose 152 H Lactic Acid Calcium Phosphorus Magnesium Direct Bilirubin AST ALT Alkaline Phosphatase Lactate Dehydrogenase Troponin T C-Reactive Protein Total Protein Albumin Prealbumin Triglycerides 160 H Cholesterol LDL Cholesterol Direct HDL Cholesterol 31 L Urine pH Urine WBC (Auto) Urine Creatinine Urine Total Protein Fluid Total Protein Vancomycin Trough Rheumatoid Factor Complement C4 Miscellaneous Test Crossmatch 09/04/16 09/04/16 09/04/16 11:34 17:46 23:29 WBC RBC Hgb Hct MCV MCH MCHC RDW Plt Count Lymph % (Auto) [place] % (Auto) Lymph # [place] # Baso # Seg Neutrophils % Seg Neuts % (Manual) Lymphocytes % (Manual) Monocytes % (Manual) Eosinophils % (Manual) Basophils % (Manual) Nucleated RBC % Seg Neutrophils # Seg Neutrophils # Man Lymphocytes # (Manual) Monocytes # (Manual) Eosinophils # (Manual) PT INR Fibrinogen dRVVT Confirm Interp Factor V Activity POC ABG pH POC ABG pCO2 POC ABG pO2 ABG pO2 ABG HCO3 ABG Base Excess ABG Hemoglobin Oxyhemoglobin Sodium Potassium Chloride Carbon Dioxide BUN Creatinine Glucose POC Glucose 165 H 210 H 139 H Lactic Acid Calcium Phosphorus Magnesium Direct Bilirubin AST ALT Alkaline Phosphatase Lactate Dehydrogenase Troponin T C-Reactive Protein Total Protein Albumin Prealbumin Triglycerides Cholesterol LDL Cholesterol Direct HDL Cholesterol Urine pH Urine WBC (Auto) Urine Creatinine Urine Total Protein Fluid Total Protein Vancomycin Trough Rheumatoid Factor Complement C4 Miscellaneous Test Crossmatch 09/05/16 09/05/16 09/05/16 04:05 04:05 05:38 WBC RBC Hgb Hct MCV 76 L D MCH 23 L MCHC RDW 17.8 H Plt Count Lymph % (Auto) [place] % (Auto) Lymph # [place] # Baso # Seg Neutrophils % Seg Neuts % (Manual) Lymphocytes % (Manual) Monocytes % (Manual) Eosinophils % (Manual) Basophils % (Manual) Nucleated RBC % Seg Neutrophils # Seg Neutrophils # Man Lymphocytes # (Manual) Monocytes # (Manual) Eosinophils # (Manual) PT INR Fibrinogen dRVVT Confirm Interp Factor V Activity POC ABG pH POC ABG pCO2 POC ABG pO2 ABG pO2 ABG HCO3 ABG Base Excess ABG Hemoglobin Oxyhemoglobin Sodium 134 L Potassium Chloride Carbon Dioxide 18 L BUN Creatinine 1.8 H Glucose 192 H POC Glucose 175 H Lactic Acid Calcium Phosphorus Magnesium Direct Bilirubin AST ALT Alkaline Phosphatase Lactate Dehydrogenase Troponin T C-Reactive Protein Total Protein Albumin Prealbumin Triglycerides Cholesterol LDL Cholesterol Direct HDL Cholesterol Urine pH Urine WBC (Auto) Urine Creatinine Urine Total Protein Fluid Total Protein Vancomycin Trough Rheumatoid Factor Complement C4 Miscellaneous Test Crossmatch 09/05/16 09/05/16 09/05/16 11:38 17:48 23:22 WBC RBC Hgb Hct MCV MCH MCHC RDW Plt Count Lymph % (Auto) [place] % (Auto) Lymph # [place] # Baso # Seg Neutrophils % Seg Neuts % (Manual) Lymphocytes % (Manual) Monocytes % (Manual) Eosinophils % (Manual) Basophils % (Manual) Nucleated RBC % Seg Neutrophils # Seg Neutrophils # Man Lymphocytes # (Manual) Monocytes # (Manual) Eosinophils # (Manual) PT INR Fibrinogen dRVVT Confirm Interp Factor V Activity POC ABG pH POC ABG pCO2 POC ABG pO2 ABG pO2 ABG HCO3 ABG Base Excess ABG Hemoglobin Oxyhemoglobin Sodium Potassium Chloride Carbon Dioxide BUN Creatinine Glucose POC Glucose 164 H 186 H 195 H Lactic Acid Calcium Phosphorus Magnesium Direct Bilirubin AST ALT Alkaline Phosphatase Lactate Dehydrogenase Troponin T C-Reactive Protein Total Protein Albumin Prealbumin Triglycerides Cholesterol LDL Cholesterol Direct HDL Cholesterol Urine pH Urine WBC (Auto) Urine Creatinine Urine Total Protein Fluid Total Protein Vancomycin Trough Rheumatoid Factor Complement C4 Miscellaneous Test Crossmatch 09/06/16 09/06/16 09/06/16 04:12 05:59 07:32 WBC RBC Hgb Hct MCV MCH MCHC RDW Plt Count Lymph % (Auto) [place] % (Auto) Lymph # [place] # Baso # Seg Neutrophils % Seg Neuts % (Manual) Lymphocytes % (Manual) Monocytes % (Manual) Eosinophils % (Manual) Basophils % (Manual) Nucleated RBC % Seg Neutrophils # Seg Neutrophils # Man Lymphocytes # (Manual) Monocytes # (Manual) Eosinophils # (Manual) PT INR Fibrinogen dRVVT Confirm Interp Factor V Activity POC ABG pH 7.514 H POC ABG pCO2 29.1 L POC ABG pO2 72 L ABG pO2 ABG HCO3 ABG Base Excess ABG Hemoglobin Oxyhemoglobin Sodium 133 L Potassium 3.4 L Chloride 94.9 L Carbon Dioxide 19 L BUN 30 H Creatinine 2.1 H Glucose 139 H POC Glucose 146 H Lactic Acid Calcium Phosphorus Magnesium Direct Bilirubin AST ALT Alkaline Phosphatase Lactate Dehydrogenase Troponin T C-Reactive Protein Total Protein Albumin Prealbumin Triglycerides Cholesterol LDL Cholesterol Direct HDL Cholesterol Urine pH Urine WBC (Auto) Urine Creatinine Urine Total Protein Fluid Total Protein Vancomycin Trough Rheumatoid Factor Complement C4 Miscellaneous Test Crossmatch 09/06/16 09/06/16 09/06/16 11:57 17:58 19:02 WBC RBC Hgb Hct MCV MCH MCHC RDW Plt Count Lymph % (Auto) [place] % (Auto) Lymph # [place] # Baso # Seg Neutrophils % Seg Neuts % (Manual) Lymphocytes % (Manual) Monocytes % (Manual) Eosinophils % (Manual) Basophils % (Manual) Nucleated RBC % Seg Neutrophils # Seg Neutrophils # Man Lymphocytes # (Manual) Monocytes # (Manual) Eosinophils # (Manual) PT INR Fibrinogen dRVVT Confirm Interp Factor V Activity POC ABG pH 7.465 H POC ABG pCO2 32.0 L POC ABG pO2 ABG pO2 ABG HCO3 ABG Base Excess ABG Hemoglobin Oxyhemoglobin Sodium Potassium Chloride Carbon Dioxide BUN Creatinine Glucose POC Glucose 165 H 160 H Lactic Acid Calcium Phosphorus Magnesium Direct Bilirubin AST ALT Alkaline Phosphatase Lactate Dehydrogenase Troponin T C-Reactive Protein Total Protein Albumin Prealbumin Triglycerides Cholesterol LDL Cholesterol Direct HDL Cholesterol Urine pH Urine WBC (Auto) Urine Creatinine Urine Total Protein Fluid Total Protein Vancomycin Trough Rheumatoid Factor Complement C4 Miscellaneous Test Crossmatch 09/06/16 09/07/16 09/07/16 23:45 02:47 02:47 WBC RBC Hgb Hct MCV MCH MCHC RDW Plt Count Lymph % (Auto) [place] % (Auto) Lymph # [place] # Baso # Seg Neutrophils % Seg Neuts % (Manual) Lymphocytes % (Manual) Monocytes % (Manual) Eosinophils % (Manual) Basophils % (Manual) Nucleated RBC % Seg Neutrophils # Seg Neutrophils # Man Lymphocytes # (Manual) Monocytes # (Manual) Eosinophils # (Manual) PT INR Fibrinogen dRVVT Confirm Interp Factor V Activity POC ABG pH POC ABG pCO2 POC ABG pO2 ABG pO2 ABG HCO3 ABG Base Excess ABG Hemoglobin Oxyhemoglobin Sodium Potassium Chloride Carbon Dioxide BUN Creatinine Glucose POC Glucose 204 H Lactic Acid Calcium Phosphorus Magnesium Direct Bilirubin AST ALT Alkaline Phosphatase Lactate Dehydrogenase Troponin T C-Reactive Protein Total Protein Albumin Prealbumin Triglycerides Cholesterol LDL Cholesterol Direct HDL Cholesterol Urine pH Urine WBC (Auto) 68.0 H Urine Creatinine 106.1 H Urine Total Protein Fluid Total Protein Vancomycin Trough Rheumatoid Factor Complement C4 Miscellaneous Test Crossmatch 09/07/16 09/07/16 09/07/16 04:50 06:19 06:39 WBC RBC Hgb Hct MCV MCH MCHC RDW Plt Count Lymph % (Auto) [place] % (Auto) Lymph # [place] # Baso # Seg Neutrophils % Seg Neuts % (Manual) Lymphocytes % (Manual) Monocytes % (Manual) Eosinophils % (Manual) Basophils % (Manual) Nucleated RBC % Seg Neutrophils # Seg Neutrophils # Man Lymphocytes # (Manual) Monocytes # (Manual) Eosinophils # (Manual) PT INR Fibrinogen dRVVT Confirm Interp Factor V Activity POC ABG pH 7.457 H POC ABG pCO2 32.1 L POC ABG pO2 76 L ABG pO2 ABG HCO3 ABG Base Excess ABG Hemoglobin Oxyhemoglobin Sodium 132 L Potassium Chloride 94.7 L Carbon Dioxide BUN 53 H Creatinine 2.9 H Glucose 151 H POC Glucose 149 H Lactic Acid Calcium Phosphorus Magnesium Direct Bilirubin AST ALT Alkaline Phosphatase Lactate Dehydrogenase Troponin T C-Reactive Protein Total Protein Albumin Prealbumin Triglycerides Cholesterol LDL Cholesterol Direct HDL Cholesterol Urine pH Urine WBC (Auto) Urine Creatinine Urine Total Protein Fluid Total Protein Vancomycin Trough Rheumatoid Factor Complement C4 Miscellaneous Test Crossmatch 09/07/16 09/07/16 09/07/16 09:20 11:43 11:43 WBC 19.4 H RBC Hgb 8.3 L Hct 26.4 L D MCV 72 L D MCH 22 L MCHC RDW 17.9 H Plt Count Lymph % (Auto) 8.5 L [place] % (Auto) Lymph # [place] # 1.0 H Baso # Seg Neutrophils % 85.8 H Seg Neuts % (Manual) Lymphocytes % (Manual) Monocytes % (Manual) Eosinophils % (Manual) Basophils % (Manual) Nucleated RBC % Seg Neutrophils # 16.6 H Seg Neutrophils # Man Lymphocytes # (Manual) Monocytes # (Manual) Eosinophils # (Manual) PT INR Fibrinogen dRVVT Confirm Interp Factor V Activity POC ABG pH POC ABG pCO2 POC ABG pO2 ABG pO2 ABG HCO3 ABG Base Excess ABG Hemoglobin Oxyhemoglobin Sodium 134 L Potassium Chloride 97.2 L Carbon Dioxide 20 L BUN 58 H Creatinine 2.9 H Glucose 147 H POC Glucose Lactic Acid Calcium Phosphorus 2.40 L Magnesium 2.40 H Direct Bilirubin AST ALT Alkaline Phosphatase Lactate Dehydrogenase Troponin T C-Reactive Protein Total Protein 5.8 L Albumin 2.2 L Prealbumin Triglycerides Cholesterol LDL Cholesterol Direct HDL Cholesterol Urine pH Urine WBC (Auto) Urine Creatinine Urine Total Protein Fluid Total Protein Vancomycin Trough Rheumatoid Factor Complement C4 58 H Miscellaneous Test Crossmatch 07/19/17 07/19/17 07/19/17 11:50 16:00 17:31 WBC RBC Hgb Hct MCV MCH MCHC RDW Plt Count Lymph % (Auto) [place] % (Auto) Lymph # [place] # Baso # Seg Neutrophils % Seg Neuts % (Manual) Lymphocytes % (Manual) Monocytes % (Manual) Eosinophils % (Manual) Basophils % (Manual) Nucleated RBC % Seg Neutrophils # Seg Neutrophils # Man Lymphocytes # (Manual) Monocytes # (Manual) Eosinophils # (Manual) PT INR Fibrinogen dRVVT Confirm Interp Factor V Activity POC ABG pH POC ABG pCO2 POC ABG pO2 158 H ABG pO2 ABG HCO3 ABG Base Excess ABG Hemoglobin Oxyhemoglobin Sodium Potassium Chloride Carbon Dioxide BUN Creatinine Glucose POC Glucose 175 H Lactic Acid Calcium Phosphorus Magnesium Direct Bilirubin AST ALT Alkaline Phosphatase Lactate Dehydrogenase Troponin T C-Reactive Protein Total Protein Albumin Prealbumin Triglycerides Cholesterol LDL Cholesterol Direct HDL Cholesterol Urine pH Urine WBC (Auto) Urine Creatinine 66.3 H Urine Total Protein Fluid Total Protein Vancomycin Trough Rheumatoid Factor Complement C4 Miscellaneous Test Crossmatch 09/07/16 09/08/16 09/08/16 23:50 05:46 06:18 WBC 17.8 H RBC 3.58 L Hgb 8.1 L Hct 25.5 L MCV 71 L MCH 23 L MCHC RDW 18.4 H Plt Count Lymph % (Auto) [place] % (Auto) Lymph # [place] # Baso # Seg Neutrophils % Seg Neuts % (Manual) 92.0 H Lymphocytes % (Manual) 6.0 L Monocytes % (Manual) Eosinophils % (Manual) Basophils % (Manual) Nucleated RBC % Seg Neutrophils # Seg Neutrophils # Man 16.4 H Lymphocytes # (Manual) 1.1 L Monocytes # (Manual) Eosinophils # (Manual) PT INR Fibrinogen dRVVT Confirm Interp Factor V Activity POC ABG pH POC ABG pCO2 34.3 L POC ABG pO2 71 L ABG pO2 ABG HCO3 ABG Base Excess ABG Hemoglobin Oxyhemoglobin Sodium Potassium Chloride Carbon Dioxide BUN Creatinine Glucose POC Glucose 216 H Lactic Acid Calcium Phosphorus Magnesium Direct Bilirubin AST ALT Alkaline Phosphatase Lactate Dehydrogenase Troponin T C-Reactive Protein Total Protein Albumin Prealbumin Triglycerides Cholesterol LDL Cholesterol Direct HDL Cholesterol Urine pH Urine WBC (Auto) Urine Creatinine Urine Total Protein Fluid Total Protein Vancomycin Trough Rheumatoid Factor Complement C4 Miscellaneous Test Crossmatch 09/08/16 09/08/16 09/08/16 06:18 06:51 10:55 WBC RBC Hgb Hct MCV MCH MCHC RDW Plt Count Lymph % (Auto) [place] % (Auto) Lymph # [place] # Baso # Seg Neutrophils % Seg Neuts % (Manual) Lymphocytes % (Manual) Monocytes % (Manual) Eosinophils % (Manual) Basophils % (Manual) Nucleated RBC % Seg Neutrophils # Seg Neutrophils # Man Lymphocytes # (Manual) Monocytes # (Manual) Eosinophils # (Manual) PT INR Fibrinogen dRVVT Confirm Interp Factor V Activity POC ABG pH POC ABG pCO2 POC ABG pO2 ABG pO2 ABG HCO3 ABG Base Excess ABG Hemoglobin Oxyhemoglobin Sodium 133 L Potassium Chloride 96.9 L Carbon Dioxide 20 L BUN 63 H Creatinine 2.7 H Glucose 195 H POC Glucose 204 H 169 H Lactic Acid Calcium Phosphorus Magnesium Direct Bilirubin AST ALT Alkaline Phosphatase Lactate Dehydrogenase Troponin T C-Reactive Protein Total Protein Albumin Prealbumin Triglycerides Cholesterol LDL Cholesterol Direct HDL Cholesterol Urine pH Urine WBC (Auto) Urine Creatinine Urine Total Protein Fluid Total Protein Vancomycin Trough Rheumatoid Factor Complement C4 Miscellaneous Test Crossmatch 09/08/16 09/08/16 09/08/16 11:48 11:48 11:48 WBC RBC Hgb Hct MCV MCH MCHC RDW Plt Count Lymph % (Auto) [place] % (Auto) Lymph # [place] # Baso # Seg Neutrophils % Seg Neuts % (Manual) Lymphocytes % (Manual) Monocytes % (Manual) Eosinophils % (Manual) Basophils % (Manual) Nucleated RBC % Seg Neutrophils # Seg Neutrophils # Man Lymphocytes # (Manual) Monocytes # (Manual) Eosinophils # (Manual) PT INR Fibrinogen 750 H dRVVT Confirm Interp Factor V Activity POC ABG pH POC ABG pCO2 POC ABG pO2 ABG pO2 ABG HCO3 ABG Base Excess ABG Hemoglobin Oxyhemoglobin Sodium Potassium Chloride Carbon Dioxide BUN Creatinine Glucose POC Glucose Lactic Acid Calcium Phosphorus Magnesium Direct Bilirubin AST ALT Alkaline Phosphatase Lactate Dehydrogenase Troponin T C-Reactive Protein 15.70 H Total Protein Albumin Prealbumin Triglycerides Cholesterol LDL Cholesterol Direct HDL Cholesterol Urine pH Urine WBC (Auto) Urine Creatinine Urine Total Protein Fluid Total Protein Vancomycin Trough Rheumatoid Factor 24 H Complement C4 Miscellaneous Test Crossmatch 09/08/16 09/08/16 09/09/16 15:35 18:25 00:24 WBC RBC Hgb Hct MCV MCH MCHC RDW Plt Count Lymph % (Auto) [place] % (Auto) Lymph # [place] # Baso # Seg Neutrophils % Seg Neuts % (Manual) Lymphocytes % (Manual) Monocytes % (Manual) Eosinophils % (Manual) Basophils % (Manual) Nucleated RBC % Seg Neutrophils # Seg Neutrophils # Man Lymphocytes # (Manual) Monocytes # (Manual) Eosinophils # (Manual) PT INR Fibrinogen dRVVT Confirm Interp Factor V Activity 182 H POC ABG pH POC ABG pCO2 POC ABG pO2 ABG pO2 ABG HCO3 ABG Base Excess ABG Hemoglobin Oxyhemoglobin Sodium Potassium Chloride Carbon Dioxide BUN Creatinine Glucose POC Glucose 184 H 216 H Lactic Acid Calcium Phosphorus Magnesium Direct Bilirubin AST ALT Alkaline Phosphatase Lactate Dehydrogenase Troponin T C-Reactive Protein Total Protein Albumin Prealbumin Triglycerides Cholesterol LDL Cholesterol Direct HDL Cholesterol Urine pH Urine WBC (Auto) Urine Creatinine Urine Total Protein Fluid Total Protein Vancomycin Trough Rheumatoid Factor Complement C4 Miscellaneous Test Crossmatch 09/09/16 09/09/16 09/09/16 03:00 03:00 04:04 WBC 27.9 H RBC Hgb 8.7 L Hct 28.1 L MCV 72 L MCH 22 L MCHC RDW 18.4 H Plt Count 485 H Lymph % (Auto) [place] % (Auto) Lymph # [place] # Baso # Seg Neutrophils % Seg Neuts % (Manual) 77.0 H Lymphocytes % (Manual) 9.0 L Monocytes % (Manual) Eosinophils % (Manual) Basophils % (Manual) Nucleated RBC % Seg Neutrophils # Seg Neutrophils # Man 21.5 H Lymphocytes # (Manual) Monocytes # (Manual) 2.0 H Eosinophils # (Manual) PT INR Fibrinogen dRVVT Confirm Interp Factor V Activity POC ABG pH POC ABG pCO2 POC ABG pO2 121 H ABG pO2 ABG HCO3 ABG Base Excess ABG Hemoglobin Oxyhemoglobin Sodium 135 L Potassium Chloride 96.3 L Carbon Dioxide 21 L BUN 83 H Creatinine 3.0 H Glucose 135 H POC Glucose Lactic Acid Calcium Phosphorus Magnesium Direct Bilirubin AST ALT Alkaline Phosphatase Lactate Dehydrogenase Troponin T C-Reactive Protein Total Protein Albumin Prealbumin Triglycerides Cholesterol LDL Cholesterol Direct HDL Cholesterol Urine pH Urine WBC (Auto) Urine Creatinine Urine Total Protein Fluid Total Protein Vancomycin Trough Rheumatoid Factor Complement C4 Miscellaneous Test Crossmatch 09/09/16 09/09/16 09/09/16 05:41 11:55 14:13 WBC RBC Hgb Hct MCV MCH MCHC RDW Plt Count Lymph % (Auto) [place] % (Auto) Lymph # [place] # Baso # Seg Neutrophils % Seg Neuts % (Manual) Lymphocytes % (Manual) Monocytes % (Manual) Eosinophils % (Manual) Basophils % (Manual) Nucleated RBC % Seg Neutrophils # Seg Neutrophils # Man Lymphocytes # (Manual) Monocytes # (Manual) Eosinophils # (Manual) PT INR Fibrinogen dRVVT Confirm Interp Factor V Activity POC ABG pH POC ABG pCO2 POC ABG pO2 ABG pO2 ABG HCO3 ABG Base Excess ABG Hemoglobin Oxyhemoglobin Sodium Potassium Chloride Carbon Dioxide BUN Creatinine Glucose POC Glucose 155 H 186 H Lactic Acid Calcium Phosphorus Magnesium Direct Bilirubin AST ALT Alkaline Phosphatase Lactate Dehydrogenase Troponin T C-Reactive Protein Total Protein Albumin Prealbumin Triglycerides Cholesterol LDL Cholesterol Direct HDL Cholesterol Urine pH Urine WBC (Auto) 25.0 H Urine Creatinine Urine Total Protein Fluid Total Protein Vancomycin Trough Rheumatoid Factor Complement C4 Miscellaneous Test Crossmatch 09/09/16 09/09/16 09/10/16 17:33 23:13 05:09 WBC RBC Hgb Hct MCV MCH MCHC RDW Plt Count Lymph % (Auto) [place] % (Auto) Lymph # [place] # Baso # Seg Neutrophils % Seg Neuts % (Manual) Lymphocytes % (Manual) Monocytes % (Manual) Eosinophils % (Manual) Basophils % (Manual) Nucleated RBC % Seg Neutrophils # Seg Neutrophils # Man Lymphocytes # (Manual) Monocytes # (Manual) Eosinophils # (Manual) PT INR Fibrinogen dRVVT Confirm Interp Factor V Activity POC ABG pH POC ABG pCO2 POC ABG pO2 74 L ABG pO2 ABG HCO3 ABG Base Excess ABG Hemoglobin Oxyhemoglobin Sodium Potassium Chloride Carbon Dioxide BUN Creatinine Glucose POC Glucose 211 H 215 H Lactic Acid Calcium Phosphorus Magnesium Direct Bilirubin AST ALT Alkaline Phosphatase Lactate Dehydrogenase Troponin T C-Reactive Protein Total Protein Albumin Prealbumin Triglycerides Cholesterol LDL Cholesterol Direct HDL Cholesterol Urine pH Urine WBC (Auto) Urine Creatinine Urine Total Protein Fluid Total Protein Vancomycin Trough Rheumatoid Factor Complement C4 Miscellaneous Test Crossmatch 09/10/16 09/10/16 09/10/16 05:17 05:17 11:31 WBC 15.8 H RBC 3.25 L Hgb 7.3 L Hct 22.9 L MCV 71 L MCH 23 L MCHC RDW 18.4 H Plt Count Lymph % (Auto) [place] % (Auto) Lymph # [place] # Baso # Seg Neutrophils % Seg Neuts % (Manual) 91.0 H Lymphocytes % (Manual) 4.0 L Monocytes % (Manual) Eosinophils % (Manual) Basophils % (Manual) Nucleated RBC % Seg Neutrophils # Seg Neutrophils # Man 14.4 H Lymphocytes # (Manual) 0.6 L Monocytes # (Manual) Eosinophils # (Manual) PT INR Fibrinogen dRVVT Confirm Interp Factor V Activity POC ABG pH POC ABG pCO2 POC ABG pO2 ABG pO2 ABG HCO3 ABG Base Excess ABG Hemoglobin Oxyhemoglobin Sodium Potassium Chloride Carbon Dioxide 21 L BUN 93 H Creatinine 2.9 H Glucose 146 H POC Glucose 188 H Lactic Acid Calcium 8.1 L Phosphorus Magnesium Direct Bilirubin AST ALT Alkaline Phosphatase Lactate Dehydrogenase Troponin T C-Reactive Protein Total Protein Albumin Prealbumin Triglycerides Cholesterol LDL Cholesterol Direct HDL Cholesterol Urine pH Urine WBC (Auto) Urine Creatinine Urine Total Protein Fluid Total Protein Vancomycin Trough Rheumatoid Factor Complement C4 Miscellaneous Test Crossmatch 09/10/16 09/10/16 09/10/16 13:17 17:20 23:32 WBC RBC Hgb Hct MCV MCH MCHC RDW Plt Count Lymph % (Auto) [place] % (Auto) Lymph # [place] # Baso # Seg Neutrophils % Seg Neuts % (Manual) Lymphocytes % (Manual) Monocytes % (Manual) Eosinophils % (Manual) Basophils % (Manual) Nucleated RBC % Seg Neutrophils # Seg Neutrophils # Man Lymphocytes # (Manual) Monocytes # (Manual) Eosinophils # (Manual) PT INR Fibrinogen dRVVT Confirm Interp Factor V Activity POC ABG pH POC ABG pCO2 POC ABG pO2 ABG pO2 ABG HCO3 ABG Base Excess ABG Hemoglobin Oxyhemoglobin Sodium Potassium Chloride Carbon Dioxide BUN Creatinine Glucose POC Glucose 199 H 186 H Lactic Acid Calcium Phosphorus Magnesium Direct Bilirubin AST ALT Alkaline Phosphatase Lactate Dehydrogenase Troponin T C-Reactive Protein Total Protein Albumin Prealbumin Triglycerides Cholesterol LDL Cholesterol Direct HDL Cholesterol Urine pH Urine WBC (Auto) Urine Creatinine Urine Total Protein Fluid Total Protein Vancomycin Trough Rheumatoid Factor Complement C4 Miscellaneous Test Crossmatch See Detail 09/11/16 09/11/16 09/11/16 05:10 05:10 05:17 WBC 28.4 H RBC Hgb 9.2 L Hct 29.3 L D MCV 73 L MCH 23 L MCHC RDW 18.9 H Plt Count 452 H Lymph % (Auto) [place] % (Auto) Lymph # [place] # Baso # Seg Neutrophils % Seg Neuts % (Manual) 89.5 H Lymphocytes % (Manual) 2.0 L Monocytes % (Manual) Eosinophils % (Manual) Basophils % (Manual) Nucleated RBC % Seg Neutrophils # Seg Neutrophils # Man 25.4 H Lymphocytes # (Manual) 0.6 L Monocytes # (Manual) 1.3 H Eosinophils # (Manual) PT INR Fibrinogen dRVVT Confirm Interp Factor V Activity POC ABG pH POC ABG pCO2 POC ABG pO2 ABG pO2 ABG HCO3 ABG Base Excess ABG Hemoglobin Oxyhemoglobin Sodium 136 L Potassium Chloride Carbon Dioxide 18 L BUN 107 H Creatinine 2.6 H Glucose 187 H POC Glucose 230 H Lactic Acid Calcium 8.3 L Phosphorus Magnesium Direct Bilirubin AST ALT Alkaline Phosphatase Lactate Dehydrogenase Troponin T C-Reactive Protein Total Protein Albumin Prealbumin Triglycerides Cholesterol LDL Cholesterol Direct HDL Cholesterol Urine pH Urine WBC (Auto) Urine Creatinine Urine Total Protein Fluid Total Protein Vancomycin Trough Rheumatoid Factor Complement C4 Miscellaneous Test Crossmatch 09/11/16 09/11/16 09/11/16 05:55 12:02 17:32 WBC RBC Hgb Hct MCV MCH MCHC RDW Plt Count Lymph % (Auto) [place] % (Auto) Lymph # [place] # Baso # Seg Neutrophils % Seg Neuts % (Manual) Lymphocytes % (Manual) Monocytes % (Manual) Eosinophils % (Manual) Basophils % (Manual) Nucleated RBC % Seg Neutrophils # Seg Neutrophils # Man Lymphocytes # (Manual) Monocytes # (Manual) Eosinophils # (Manual) PT INR Fibrinogen dRVVT Confirm Interp Factor V Activity POC ABG pH POC ABG pCO2 33.8 L POC ABG pO2 ABG pO2 ABG HCO3 ABG Base Excess ABG Hemoglobin Oxyhemoglobin Sodium Potassium Chloride Carbon Dioxide BUN Creatinine Glucose POC Glucose 191 H 239 H Lactic Acid Calcium Phosphorus Magnesium Direct Bilirubin AST ALT Alkaline Phosphatase Lactate Dehydrogenase Troponin T C-Reactive Protein Total Protein Albumin Prealbumin Triglycerides Cholesterol LDL Cholesterol Direct HDL Cholesterol Urine pH Urine WBC (Auto) Urine Creatinine Urine Total Protein Fluid Total Protein Vancomycin Trough Rheumatoid Factor Complement C4 Miscellaneous Test Crossmatch 09/11/16 09/12/16 09/12/16 23:52 05:09 05:32 WBC RBC Hgb Hct MCV MCH MCHC RDW Plt Count Lymph % (Auto) [place] % (Auto) Lymph # [place] # Baso # Seg Neutrophils % Seg Neuts % (Manual) Lymphocytes % (Manual) Monocytes % (Manual) Eosinophils % (Manual) Basophils % (Manual) Nucleated RBC % Seg Neutrophils # Seg Neutrophils # Man Lymphocytes # (Manual) Monocytes # (Manual) Eosinophils # (Manual) PT INR Fibrinogen dRVVT Confirm Interp Factor V Activity POC ABG pH POC ABG pCO2 34.6 L POC ABG pO2 ABG pO2 ABG HCO3 ABG Base Excess ABG Hemoglobin Oxyhemoglobin Sodium Potassium Chloride Carbon Dioxide BUN Creatinine Glucose POC Glucose 265 H 184 H Lactic Acid Calcium Phosphorus Magnesium Direct Bilirubin AST ALT Alkaline Phosphatase Lactate Dehydrogenase Troponin T C-Reactive Protein Total Protein Albumin Prealbumin Triglycerides Cholesterol LDL Cholesterol Direct HDL Cholesterol Urine pH Urine WBC (Auto) Urine Creatinine Urine Total Protein Fluid Total Protein Vancomycin Trough Rheumatoid Factor Complement C4 Miscellaneous Test Crossmatch 09/12/16 09/12/16 09/12/16 06:45 06:45 07:22 WBC 31.7 H RBC 3.54 L Hgb 8.3 L Hct 25.9 L MCV 73 L MCH 23 L MCHC RDW 18.9 H Plt Count Lymph % (Auto) [place] % (Auto) Lymph # [place] # Baso # Seg Neutrophils % Seg Neuts % (Manual) 88.5 H Lymphocytes % (Manual) 4.5 L Monocytes % (Manual) Eosinophils % (Manual) Basophils % (Manual) Nucleated RBC % Seg Neutrophils # Seg Neutrophils # Man 28.1 H Lymphocytes # (Manual) Monocytes # (Manual) 1.0 H Eosinophils # (Manual) PT INR Fibrinogen dRVVT Confirm Interp Factor V Activity POC ABG pH POC ABG pCO2 POC ABG pO2 ABG pO2 ABG HCO3 ABG Base Excess ABG Hemoglobin Oxyhemoglobin Sodium Potassium Chloride Carbon Dioxide 20 L BUN 115 H Creatinine 2.7 H Glucose 165 H POC Glucose Lactic Acid Calcium 8.0 L Phosphorus Magnesium Direct Bilirubin AST ALT Alkaline Phosphatase Lactate Dehydrogenase Troponin T C-Reactive Protein Total Protein Albumin Prealbumin Triglycerides 217 H Cholesterol LDL Cholesterol Direct HDL Cholesterol Urine pH Urine WBC (Auto) Urine Creatinine Urine Total Protein Fluid Total Protein Vancomycin Trough Rheumatoid Factor Complement C4 Miscellaneous Test Crossmatch 09/12/16 09/12/16 09/12/16 07:22 09:59 12:21 WBC RBC Hgb Hct MCV MCH MCHC RDW Plt Count Lymph % (Auto) [place] % (Auto) Lymph # [place] # Baso # Seg Neutrophils % Seg Neuts % (Manual) Lymphocytes % (Manual) Monocytes % (Manual) Eosinophils % (Manual) Basophils % (Manual) Nucleated RBC % Seg Neutrophils # Seg Neutrophils # Man Lymphocytes # (Manual) Monocytes # (Manual) Eosinophils # (Manual) PT INR Fibrinogen dRVVT Confirm Interp Positive H Factor V Activity POC ABG pH POC ABG pCO2 POC ABG pO2 ABG pO2 ABG HCO3 ABG Base Excess ABG Hemoglobin Oxyhemoglobin Sodium Potassium Chloride Carbon Dioxide BUN Creatinine Glucose POC Glucose 224 H Lactic Acid Calcium Phosphorus Magnesium Direct Bilirubin AST ALT Alkaline Phosphatase Lactate Dehydrogenase Troponin T C-Reactive Protein 1.70 H Total Protein Albumin Prealbumin Triglycerides Cholesterol LDL Cholesterol Direct HDL Cholesterol Urine pH Urine WBC (Auto) Urine Creatinine Urine Total Protein Fluid Total Protein Vancomycin Trough Rheumatoid Factor Complement C4 Miscellaneous Test Crossmatch 09/12/16 09/12/16 09/13/16 16:51 23:28 04:00 WBC 45.0 H* RBC Hgb 9.4 L Hct MCV 75 L MCH 23 L MCHC RDW 19.0 H Plt Count 470 H Lymph % (Auto) [place] % (Auto) Lymph # [place] # Baso # Seg Neutrophils % Seg Neuts % (Manual) 89.0 H Lymphocytes % (Manual) 5.0 L Monocytes % (Manual) Eosinophils % (Manual) Basophils % (Manual) Nucleated RBC % Seg Neutrophils # Seg Neutrophils # Man 40.1 H Lymphocytes # (Manual) Monocytes # (Manual) Eosinophils # (Manual) PT INR Fibrinogen dRVVT Confirm Interp Factor V Activity POC ABG pH POC ABG pCO2 POC ABG pO2 ABG pO2 ABG HCO3 ABG Base Excess ABG Hemoglobin Oxyhemoglobin Sodium Potassium Chloride Carbon Dioxide BUN Creatinine Glucose POC Glucose 169 H 150 H Lactic Acid Calcium Phosphorus Magnesium Direct Bilirubin AST ALT Alkaline Phosphatase Lactate Dehydrogenase Troponin T C-Reactive Protein Total Protein Albumin Prealbumin Triglycerides Cholesterol LDL Cholesterol Direct HDL Cholesterol Urine pH Urine WBC (Auto) Urine Creatinine Urine Total Protein Fluid Total Protein Vancomycin Trough Rheumatoid Factor Complement C4 Miscellaneous Test Crossmatch 09/13/16 09/13/16 09/13/16 04:00 11:26 17:31 WBC RBC Hgb Hct MCV MCH MCHC RDW Plt Count Lymph % (Auto) [place] % (Auto) Lymph # [place] # Baso # Seg Neutrophils % Seg Neuts % (Manual) Lymphocytes % (Manual) Monocytes % (Manual) Eosinophils % (Manual) Basophils % (Manual) Nucleated RBC % Seg Neutrophils # Seg Neutrophils # Man Lymphocytes # (Manual) Monocytes # (Manual) Eosinophils # (Manual) PT INR Fibrinogen dRVVT Confirm Interp Factor V Activity POC ABG pH POC ABG pCO2 POC ABG pO2 ABG pO2 ABG HCO3 ABG Base Excess ABG Hemoglobin Oxyhemoglobin Sodium Potassium Chloride Carbon Dioxide 20 L BUN 116 H Creatinine 3.0 H Glucose 172 H POC Glucose 140 H 183 H Lactic Acid Calcium Phosphorus Magnesium Direct Bilirubin AST ALT Alkaline Phosphatase Lactate Dehydrogenase Troponin T C-Reactive Protein Total Protein 6.2 L Albumin 2.9 L Prealbumin Triglycerides Cholesterol LDL Cholesterol Direct HDL Cholesterol Urine pH Urine WBC (Auto) Urine Creatinine Urine Total Protein Fluid Total Protein Vancomycin Trough Rheumatoid Factor Complement C4 Miscellaneous Test Crossmatch 09/13/16 09/14/16 09/14/16 23:23 04:06 04:07 WBC 29.4 H RBC Hgb 8.9 L Hct 27.3 L MCV 75 L MCH 24 L MCHC RDW 19.1 H Plt Count Lymph % (Auto) [place] % (Auto) Lymph # [place] # Baso # Seg Neutrophils % Seg Neuts % (Manual) 84.0 H Lymphocytes % (Manual) 6.0 L Monocytes % (Manual) 9.0 H Eosinophils % (Manual) Basophils % (Manual) Nucleated RBC % Seg Neutrophils # Seg Neutrophils # Man 24.7 H Lymphocytes # (Manual) Monocytes # (Manual) 2.6 H Eosinophils # (Manual) PT INR Fibrinogen dRVVT Confirm Interp Factor V Activity POC ABG pH 7.342 L POC ABG pCO2 POC ABG pO2 116 H ABG pO2 ABG HCO3 ABG Base Excess ABG Hemoglobin Oxyhemoglobin Sodium Potassium Chloride Carbon Dioxide BUN Creatinine Glucose POC Glucose 154 H Lactic Acid Calcium Phosphorus Magnesium Direct Bilirubin AST ALT Alkaline Phosphatase Lactate Dehydrogenase Troponin T C-Reactive Protein Total Protein Albumin Prealbumin Triglycerides Cholesterol LDL Cholesterol Direct HDL Cholesterol Urine pH Urine WBC (Auto) Urine Creatinine Urine Total Protein Fluid Total Protein Vancomycin Trough Rheumatoid Factor Complement C4 Miscellaneous Test Crossmatch 09/14/16 09/14/16 09/14/16 04:07 05:29 12:19 WBC RBC Hgb Hct MCV MCH MCHC RDW Plt Count Lymph % (Auto) [place] % (Auto) Lymph # [place] # Baso # Seg Neutrophils % Seg Neuts % (Manual) Lymphocytes % (Manual) Monocytes % (Manual) Eosinophils % (Manual) Basophils % (Manual) Nucleated RBC % Seg Neutrophils # Seg Neutrophils # Man Lymphocytes # (Manual) Monocytes # (Manual) Eosinophils # (Manual) PT INR Fibrinogen dRVVT Confirm Interp Factor V Activity POC ABG pH POC ABG pCO2 POC ABG pO2 ABG pO2 ABG HCO3 ABG Base Excess ABG Hemoglobin Oxyhemoglobin Sodium 136 L Potassium Chloride Carbon Dioxide 18 L BUN 121 H Creatinine 2.8 H Glucose 214 H POC Glucose 239 H 181 H Lactic Acid Calcium Phosphorus Magnesium Direct Bilirubin AST ALT Alkaline Phosphatase Lactate Dehydrogenase Troponin T C-Reactive Protein Total Protein Albumin Prealbumin Triglycerides Cholesterol LDL Cholesterol Direct HDL Cholesterol Urine pH Urine WBC (Auto) Urine Creatinine Urine Total Protein Fluid Total Protein Vancomycin Trough Rheumatoid Factor Complement C4 Miscellaneous Test Crossmatch 09/14/16 09/14/16 09/15/16 18:12 23:37 05:00 WBC 26.1 H RBC 3.05 L Hgb 7.2 L Hct 22.9 L MCV 75 L MCH 24 L MCHC RDW 19.0 H Plt Count Lymph % (Auto) [place] % (Auto) Lymph # [place] # Baso # Seg Neutrophils % Seg Neuts % (Manual) Lymphocytes % (Manual) Monocytes % (Manual) Eosinophils % (Manual) Basophils % (Manual) Nucleated RBC % Seg Neutrophils # Seg Neutrophils # Man Lymphocytes # (Manual) Monocytes # (Manual) Eosinophils # (Manual) PT INR Fibrinogen dRVVT Confirm Interp Factor V Activity POC ABG pH POC ABG pCO2 POC ABG pO2 ABG pO2 ABG HCO3 ABG Base Excess ABG Hemoglobin Oxyhemoglobin Sodium Potassium Chloride Carbon Dioxide BUN Creatinine Glucose POC Glucose 266 H 154 H Lactic Acid Calcium Phosphorus Magnesium Direct Bilirubin AST ALT Alkaline Phosphatase Lactate Dehydrogenase Troponin T C-Reactive Protein Total Protein Albumin Prealbumin Triglycerides Cholesterol LDL Cholesterol Direct HDL Cholesterol Urine pH Urine WBC (Auto) Urine Creatinine Urine Total Protein Fluid Total Protein Vancomycin Trough Rheumatoid Factor Complement C4 Miscellaneous Test Crossmatch 09/15/16 09/15/16 09/15/16 05:00 05:17 12:45 WBC RBC Hgb Hct MCV MCH MCHC RDW Plt Count Lymph % (Auto) [place] % (Auto) Lymph # [place] # Baso # Seg Neutrophils % Seg Neuts % (Manual) Lymphocytes % (Manual) Monocytes % (Manual) Eosinophils % (Manual) Basophils % (Manual) Nucleated RBC % Seg Neutrophils # Seg Neutrophils # Man Lymphocytes # (Manual) Monocytes # (Manual) Eosinophils # (Manual) PT INR Fibrinogen dRVVT Confirm Interp Factor V Activity POC ABG pH POC ABG pCO2 POC ABG pO2 ABG pO2 ABG HCO3 ABG Base Excess ABG Hemoglobin Oxyhemoglobin Sodium Potassium 5.2 H Chloride Carbon Dioxide 18 L BUN 139 H Creatinine 3.7 H Glucose 227 H POC Glucose 226 H 244 H Lactic Acid Calcium 8.3 L Phosphorus Magnesium Direct Bilirubin AST ALT Alkaline Phosphatase Lactate Dehydrogenase Troponin T C-Reactive Protein Total Protein Albumin Prealbumin Triglycerides Cholesterol LDL Cholesterol Direct HDL Cholesterol Urine pH Urine WBC (Auto) Urine Creatinine Urine Total Protein Fluid Total Protein Vancomycin Trough Rheumatoid Factor Complement C4 Miscellaneous Test Crossmatch 09/15/16 09/15/16 09/15/16 14:32 17:33 23:35 WBC RBC Hgb Hct MCV MCH MCHC RDW Plt Count Lymph % (Auto) [place] % (Auto) Lymph # [place] # Baso # Seg Neutrophils % Seg Neuts % (Manual) Lymphocytes % (Manual) Monocytes % (Manual) Eosinophils % (Manual) Basophils % (Manual) Nucleated RBC % Seg Neutrophils # Seg Neutrophils # Man Lymphocytes # (Manual) Monocytes # (Manual) Eosinophils # (Manual) PT INR Fibrinogen dRVVT Confirm Interp Factor V Activity POC ABG pH POC ABG pCO2 27.7 L POC ABG pO2 120 H ABG pO2 ABG HCO3 ABG Base Excess ABG Hemoglobin Oxyhemoglobin Sodium Potassium Chloride Carbon Dioxide BUN Creatinine Glucose POC Glucose 232 H 167 H Lactic Acid Calcium Phosphorus Magnesium Direct Bilirubin AST ALT Alkaline Phosphatase Lactate Dehydrogenase Troponin T C-Reactive Protein Total Protein Albumin Prealbumin Triglycerides Cholesterol LDL Cholesterol Direct HDL Cholesterol Urine pH Urine WBC (Auto) Urine Creatinine Urine Total Protein Fluid Total Protein Vancomycin Trough Rheumatoid Factor Complement C4 Miscellaneous Test Crossmatch 09/16/16 09/16/16 09/16/16 03:58 10:27 10:27 WBC 19.0 H RBC 2.77 L Hgb 6.5 L Hct 20.9 L MCV 76 L MCH 23 L MCHC RDW 19.3 H Plt Count Lymph % (Auto) 11.0 L [place] % (Auto) Lymph # [place] # 1.1 H Baso # Seg Neutrophils % 82.5 H Seg Neuts % (Manual) Lymphocytes % (Manual) Monocytes % (Manual) Eosinophils % (Manual) Basophils % (Manual) Nucleated RBC % Seg Neutrophils # 15.7 H Seg Neutrophils # Man Lymphocytes # (Manual) Monocytes # (Manual) Eosinophils # (Manual) PT INR Fibrinogen dRVVT Confirm Interp Factor V Activity POC ABG pH POC ABG pCO2 POC ABG pO2 ABG pO2 ABG HCO3 ABG Base Excess ABG Hemoglobin Oxyhemoglobin Sodium Potassium Chloride 109.3 H Carbon Dioxide 18 L BUN 139 H Creatinine 4.1 H Glucose 144 H POC Glucose 146 H Lactic Acid Calcium 8.1 L Phosphorus Magnesium Direct Bilirubin AST ALT Alkaline Phosphatase Lactate Dehydrogenase Troponin T C-Reactive Protein Total Protein Albumin Prealbumin Triglycerides Cholesterol LDL Cholesterol Direct HDL Cholesterol Urine pH Urine WBC (Auto) Urine Creatinine Urine Total Protein Fluid Total Protein Vancomycin Trough Rheumatoid Factor Complement C4 Miscellaneous Test Crossmatch 09/16/16 09/16/16 09/16/16 12:04 12:10 13:55 WBC RBC Hgb Hct MCV MCH MCHC RDW Plt Count Lymph % (Auto) [place] % (Auto) Lymph # [place] # Baso # Seg Neutrophils % Seg Neuts % (Manual) Lymphocytes % (Manual) Monocytes % (Manual) Eosinophils % (Manual) Basophils % (Manual) Nucleated RBC % Seg Neutrophils # Seg Neutrophils # Man Lymphocytes # (Manual) Monocytes # (Manual) Eosinophils # (Manual) PT INR Fibrinogen dRVVT Confirm Interp Factor V Activity POC ABG pH POC ABG pCO2 32.9 L POC ABG pO2 ABG pO2 ABG HCO3 ABG Base Excess ABG Hemoglobin Oxyhemoglobin Sodium Potassium Chloride Carbon Dioxide BUN Creatinine Glucose POC Glucose 185 H Lactic Acid Calcium Phosphorus Magnesium Direct Bilirubin AST ALT Alkaline Phosphatase Lactate Dehydrogenase Troponin T C-Reactive Protein Total Protein Albumin Prealbumin Triglycerides Cholesterol LDL Cholesterol Direct HDL Cholesterol Urine pH Urine WBC (Auto) Urine Creatinine Urine Total Protein Fluid Total Protein Vancomycin Trough Rheumatoid Factor Complement C4 Miscellaneous Test Crossmatch See Detail 09/16/16 09/16/16 09/16/16 17:55 19:19 23:48 WBC RBC Hgb Hct MCV MCH MCHC RDW Plt Count Lymph % (Auto) [place] % (Auto) Lymph # [place] # Baso # Seg Neutrophils % Seg Neuts % (Manual) Lymphocytes % (Manual) Monocytes % (Manual) Eosinophils % (Manual) Basophils % (Manual) Nucleated RBC % Seg Neutrophils # Seg Neutrophils # Man Lymphocytes # (Manual) Monocytes # (Manual) Eosinophils # (Manual) PT INR Fibrinogen dRVVT Confirm Interp Factor V Activity POC ABG pH POC ABG pCO2 POC ABG pO2 ABG pO2 ABG HCO3 ABG Base Excess ABG Hemoglobin Oxyhemoglobin Sodium Potassium Chloride Carbon Dioxide BUN Creatinine Glucose POC Glucose 222 H 107 H Lactic Acid Calcium Phosphorus Magnesium Direct Bilirubin AST ALT Alkaline Phosphatase Lactate Dehydrogenase Troponin T C-Reactive Protein Total Protein Albumin Prealbumin Triglycerides Cholesterol LDL Cholesterol Direct HDL Cholesterol Urine pH Urine WBC (Auto) Urine Creatinine 47.4 H Urine Total Protein 16 H Fluid Total Protein Vancomycin Trough Rheumatoid Factor Complement C4 Miscellaneous Test Crossmatch 09/17/16 09/17/16 09/17/16 03:45 03:45 04:55 WBC 19.6 H RBC 3.41 L Hgb 8.5 L Hct 26.7 L MCV 78 L MCH 25 L MCHC RDW 19.9 H Plt Count Lymph % (Auto) 9.3 L [place] % (Auto) Lymph # [place] # 1.2 H Baso # Seg Neutrophils % 83.9 H Seg Neuts % (Manual) Lymphocytes % (Manual) Monocytes % (Manual) Eosinophils % (Manual) Basophils % (Manual) Nucleated RBC % Seg Neutrophils # 16.4 H Seg Neutrophils # Man Lymphocytes # (Manual) Monocytes # (Manual) Eosinophils # (Manual) PT INR Fibrinogen dRVVT Confirm Interp Factor V Activity POC ABG pH POC ABG pCO2 POC ABG pO2 ABG pO2 ABG HCO3 ABG Base Excess ABG Hemoglobin Oxyhemoglobin Sodium 146 H Potassium 5.1 H Chloride 110.9 H Carbon Dioxide 16 L BUN 146 H Creatinine 4.0 H Glucose 108 H POC Glucose 133 H Lactic Acid Calcium Phosphorus Magnesium 3.00 H Direct Bilirubin AST ALT Alkaline Phosphatase Lactate Dehydrogenase Troponin T C-Reactive Protein Total Protein Albumin Prealbumin Triglycerides Cholesterol LDL Cholesterol Direct HDL Cholesterol Urine pH Urine WBC (Auto) Urine Creatinine Urine Total Protein Fluid Total Protein Vancomycin Trough Rheumatoid Factor Complement C4 Miscellaneous Test Crossmatch 09/17/16 09/17/16 09/17/16 11:15 17:33 23:47 WBC RBC Hgb Hct MCV MCH MCHC RDW Plt Count Lymph % (Auto) [place] % (Auto) Lymph # [place] # Baso # Seg Neutrophils % Seg Neuts % (Manual) Lymphocytes % (Manual) Monocytes % (Manual) Eosinophils % (Manual) Basophils % (Manual) Nucleated RBC % Seg Neutrophils # Seg Neutrophils # Man Lymphocytes # (Manual) Monocytes # (Manual) Eosinophils # (Manual) PT INR Fibrinogen dRVVT Confirm Interp Factor V Activity POC ABG pH POC ABG pCO2 POC ABG pO2 ABG pO2 ABG HCO3 ABG Base Excess ABG Hemoglobin Oxyhemoglobin Sodium Potassium Chloride Carbon Dioxide BUN Creatinine Glucose POC Glucose 176 H 246 H 148 H Lactic Acid Calcium Phosphorus Magnesium Direct Bilirubin AST ALT Alkaline Phosphatase Lactate Dehydrogenase Troponin T C-Reactive Protein Total Protein Albumin Prealbumin Triglycerides Cholesterol LDL Cholesterol Direct HDL Cholesterol Urine pH Urine WBC (Auto) Urine Creatinine Urine Total Protein Fluid Total Protein Vancomycin Trough Rheumatoid Factor Complement C4 Miscellaneous Test Crossmatch 09/18/16 09/18/16 09/18/16 05:33 08:31 08:31 WBC 18.0 H RBC 3.17 L Hgb 9.0 L Hct 25.7 L MCV MCH MCHC 35 H RDW 20.4 H Plt Count Lymph % (Auto) [place] % (Auto) Lymph # [place] # Baso # Seg Neutrophils % Seg Neuts % (Manual) Lymphocytes % (Manual) Monocytes % (Manual) Eosinophils % (Manual) Basophils % (Manual) Nucleated RBC % Seg Neutrophils # Seg Neutrophils # Man Lymphocytes # (Manual) Monocytes # (Manual) Eosinophils # (Manual) PT INR Fibrinogen dRVVT Confirm Interp Factor V Activity POC ABG pH POC ABG pCO2 POC ABG pO2 ABG pO2 ABG HCO3 ABG Base Excess ABG Hemoglobin Oxyhemoglobin Sodium Potassium Chloride Carbon Dioxide 15 L BUN 124 H Creatinine 3.8 H Glucose POC Glucose 120 H Lactic Acid Calcium 8.1 L Phosphorus Magnesium Direct Bilirubin AST ALT Alkaline Phosphatase Lactate Dehydrogenase Troponin T C-Reactive Protein Total Protein Albumin Prealbumin Triglycerides Cholesterol LDL Cholesterol Direct HDL Cholesterol Urine pH Urine WBC (Auto) Urine Creatinine Urine Total Protein Fluid Total Protein Vancomycin Trough Rheumatoid Factor Complement C4 Miscellaneous Test Crossmatch 09/18/16 09/18/16 09/18/16 12:03 15:34 17:50 WBC RBC Hgb Hct MCV MCH MCHC RDW Plt Count Lymph % (Auto) [place] % (Auto) Lymph # [place] # Baso # Seg Neutrophils % Seg Neuts % (Manual) Lymphocytes % (Manual) Monocytes % (Manual) Eosinophils % (Manual) Basophils % (Manual) Nucleated RBC % Seg Neutrophils # Seg Neutrophils # Man Lymphocytes # (Manual) Monocytes # (Manual) Eosinophils # (Manual) PT INR Fibrinogen dRVVT Confirm Interp Factor V Activity POC ABG pH POC ABG pCO2 25.7 L POC ABG pO2 66 L ABG pO2 ABG HCO3 ABG Base Excess ABG Hemoglobin Oxyhemoglobin Sodium Potassium Chloride Carbon Dioxide BUN Creatinine Glucose POC Glucose 156 H 220 H Lactic Acid Calcium Phosphorus Magnesium Direct Bilirubin AST ALT Alkaline Phosphatase Lactate Dehydrogenase Troponin T C-Reactive Protein Total Protein Albumin Prealbumin Triglycerides Cholesterol LDL Cholesterol Direct HDL Cholesterol Urine pH Urine WBC (Auto) Urine Creatinine Urine Total Protein Fluid Total Protein Vancomycin Trough Rheumatoid Factor Complement C4 Miscellaneous Test Crossmatch 09/19/16 09/19/16 09/19/16 06:21 09:50 09:50 WBC 17.1 H RBC 3.49 L Hgb 9.0 L Hct 28.1 L MCV MCH 26 L MCHC RDW 20.8 H Plt Count Lymph % (Auto) 11.5 L [place] % (Auto) 7.5 H Lymph # [place] # 1.3 H Baso # Seg Neutrophils % 79.8 H Seg Neuts % (Manual) Lymphocytes % (Manual) Monocytes % (Manual) Eosinophils % (Manual) Basophils % (Manual) Nucleated RBC % Seg Neutrophils # 13.7 H Seg Neutrophils # Man Lymphocytes # (Manual) Monocytes # (Manual) Eosinophils # (Manual) PT INR Fibrinogen dRVVT Confirm Interp Factor V Activity POC ABG pH POC ABG pCO2 POC ABG pO2 ABG pO2 ABG HCO3 ABG Base Excess ABG Hemoglobin Oxyhemoglobin Sodium Potassium Chloride 108.6 H Carbon Dioxide 15 L BUN 125 H Creatinine 4.1 H Glucose 124 H POC Glucose 119 H Lactic Acid Calcium Phosphorus Magnesium Direct Bilirubin AST ALT Alkaline Phosphatase Lactate Dehydrogenase Troponin T C-Reactive Protein Total Protein Albumin Prealbumin Triglycerides Cholesterol LDL Cholesterol Direct HDL Cholesterol Urine pH Urine WBC (Auto) Urine Creatinine Urine Total Protein Fluid Total Protein Vancomycin Trough Rheumatoid Factor Complement C4 Miscellaneous Test Crossmatch 09/19/16 09/19/16 09/19/16 11:25 17:53 23:36 WBC RBC Hgb Hct MCV MCH MCHC RDW Plt Count Lymph % (Auto) [place] % (Auto) Lymph # [place] # Baso # Seg Neutrophils % Seg Neuts % (Manual) Lymphocytes % (Manual) Monocytes % (Manual) Eosinophils % (Manual) Basophils % (Manual) Nucleated RBC % Seg Neutrophils # Seg Neutrophils # Man Lymphocytes # (Manual) Monocytes # (Manual) Eosinophils # (Manual) PT INR Fibrinogen dRVVT Confirm Interp Factor V Activity POC ABG pH POC ABG pCO2 POC ABG pO2 ABG pO2 ABG HCO3 ABG Base Excess ABG Hemoglobin Oxyhemoglobin Sodium Potassium Chloride Carbon Dioxide BUN Creatinine Glucose POC Glucose 160 H 245 H 121 H Lactic Acid Calcium Phosphorus Magnesium Direct Bilirubin AST ALT Alkaline Phosphatase Lactate Dehydrogenase Troponin T C-Reactive Protein Total Protein Albumin Prealbumin Triglycerides Cholesterol LDL Cholesterol Direct HDL Cholesterol Urine pH Urine WBC (Auto) Urine Creatinine Urine Total Protein Fluid Total Protein Vancomycin Trough Rheumatoid Factor Complement C4 Miscellaneous Test Crossmatch 09/20/16 09/20/16 09/20/16 04:10 04:10 04:10 WBC 17.0 H RBC 3.21 L Hgb 8.2 L Hct 25.5 L MCV MCH 26 L MCHC RDW 20.9 H Plt Count Lymph % (Auto) [place] % (Auto) Lymph # [place] # Baso # Seg Neutrophils % Seg Neuts % (Manual) Lymphocytes % (Manual) Monocytes % (Manual) Eosinophils % (Manual) Basophils % (Manual) Nucleated RBC % Seg Neutrophils # Seg Neutrophils # Man Lymphocytes # (Manual) Monocytes # (Manual) Eosinophils # (Manual) PT INR Fibrinogen dRVVT Confirm Interp Factor V Activity POC ABG pH POC ABG pCO2 POC ABG pO2 ABG pO2 ABG HCO3 ABG Base Excess ABG Hemoglobin Oxyhemoglobin Sodium Potassium Chloride 111.0 H Carbon Dioxide 16 L BUN 129 H Creatinine 3.7 H Glucose 115 H POC Glucose Lactic Acid Calcium 8.2 L Phosphorus Magnesium Direct Bilirubin AST ALT Alkaline Phosphatase Lactate Dehydrogenase Troponin T C-Reactive Protein Total Protein Albumin Prealbumin Triglycerides 243 H Cholesterol LDL Cholesterol Direct HDL Cholesterol Urine pH Urine WBC (Auto) Urine Creatinine Urine Total Protein Fluid Total Protein Vancomycin Trough Rheumatoid Factor Complement C4 Miscellaneous Test Crossmatch 09/20/16 09/20/16 09/20/16 05:40 11:52 16:50 WBC RBC Hgb Hct MCV MCH MCHC RDW Plt Count Lymph % (Auto) [place] % (Auto) Lymph # [place] # Baso # Seg Neutrophils % Seg Neuts % (Manual) Lymphocytes % (Manual) Monocytes % (Manual) Eosinophils % (Manual) Basophils % (Manual) Nucleated RBC % Seg Neutrophils # Seg Neutrophils # Man Lymphocytes # (Manual) Monocytes # (Manual) Eosinophils # (Manual) PT INR Fibrinogen dRVVT Confirm Interp Factor V Activity POC ABG pH POC ABG pCO2 POC ABG pO2 ABG pO2 ABG HCO3 ABG Base Excess ABG Hemoglobin Oxyhemoglobin Sodium Potassium Chloride Carbon Dioxide BUN Creatinine Glucose POC Glucose 131 H 183 H 236 H Lactic Acid Calcium Phosphorus Magnesium Direct Bilirubin AST ALT Alkaline Phosphatase Lactate Dehydrogenase Troponin T C-Reactive Protein Total Protein Albumin Prealbumin Triglycerides Cholesterol LDL Cholesterol Direct HDL Cholesterol Urine pH Urine WBC (Auto) Urine Creatinine Urine Total Protein Fluid Total Protein Vancomycin Trough Rheumatoid Factor Complement C4 Miscellaneous Test Crossmatch 09/20/16 09/21/16 09/21/16 23:51 03:30 04:44 WBC RBC Hgb Hct MCV MCH MCHC RDW Plt Count Lymph % (Auto) [place] % (Auto) Lymph # [place] # Baso # Seg Neutrophils % Seg Neuts % (Manual) Lymphocytes % (Manual) Monocytes % (Manual) Eosinophils % (Manual) Basophils % (Manual) Nucleated RBC % Seg Neutrophils # Seg Neutrophils # Man Lymphocytes # (Manual) Monocytes # (Manual) Eosinophils # (Manual) PT INR Fibrinogen dRVVT Confirm Interp Factor V Activity POC ABG pH POC ABG pCO2 POC ABG pO2 ABG pO2 ABG HCO3 ABG Base Excess ABG Hemoglobin Oxyhemoglobin Sodium Potassium Chloride Carbon Dioxide BUN Creatinine Glucose POC Glucose 114 H 141 H Lactic Acid Calcium Phosphorus Magnesium 2.70 H Direct Bilirubin AST ALT Alkaline Phosphatase Lactate Dehydrogenase Troponin T C-Reactive Protein Total Protein Albumin Prealbumin Triglycerides Cholesterol LDL Cholesterol Direct HDL Cholesterol Urine pH Urine WBC (Auto) Urine Creatinine Urine Total Protein Fluid Total Protein Vancomycin Trough Rheumatoid Factor Complement C4 Miscellaneous Test Crossmatch 09/21/16 09/21/16 09/21/16 07:45 07:45 10:01 WBC 13.8 H RBC 2.94 L Hgb 7.5 L Hct 23.5 L MCV MCH 26 L MCHC RDW 21.2 H Plt Count Lymph % (Auto) 6.9 L [place] % (Auto) 9.4 H Lymph # 0.9 L [place] # 1.3 H Baso # Seg Neutrophils % 83.2 H Seg Neuts % (Manual) Lymphocytes % (Manual) Monocytes % (Manual) Eosinophils % (Manual) Basophils % (Manual) Nucleated RBC % Seg Neutrophils # 11.5 H Seg Neutrophils # Man Lymphocytes # (Manual) Monocytes # (Manual) Eosinophils # (Manual) PT INR Fibrinogen dRVVT Confirm Interp Factor V Activity POC ABG pH 7.308 L POC ABG pCO2 31.9 L POC ABG pO2 148 H ABG pO2 ABG HCO3 ABG Base Excess ABG Hemoglobin Oxyhemoglobin Sodium 147 H Potassium Chloride 114.2 H Carbon Dioxide 15 L BUN 120 H Creatinine 3.9 H Glucose 156 H POC Glucose Lactic Acid Calcium 8.2 L Phosphorus Magnesium Direct Bilirubin AST ALT Alkaline Phosphatase Lactate Dehydrogenase Troponin T C-Reactive Protein Total Protein Albumin Prealbumin Triglycerides Cholesterol LDL Cholesterol Direct HDL Cholesterol Urine pH Urine WBC (Auto) Urine Creatinine Urine Total Protein Fluid Total Protein Vancomycin Trough Rheumatoid Factor Complement C4 Miscellaneous Test Crossmatch 09/21/16 09/21/16 09/21/16 12:00 12:03 13:00 WBC RBC Hgb Hct MCV MCH MCHC RDW Plt Count Lymph % (Auto) [place] % (Auto) Lymph # [place] # Baso # Seg Neutrophils % Seg Neuts % (Manual) Lymphocytes % (Manual) Monocytes % (Manual) Eosinophils % (Manual) Basophils % (Manual) Nucleated RBC % Seg Neutrophils # Seg Neutrophils # Man Lymphocytes # (Manual) Monocytes # (Manual) Eosinophils # (Manual) PT INR Fibrinogen dRVVT Confirm Interp Factor V Activity POC ABG pH POC ABG pCO2 POC ABG pO2 ABG pO2 ABG HCO3 ABG Base Excess ABG Hemoglobin Oxyhemoglobin Sodium Potassium Chloride Carbon Dioxide BUN Creatinine Glucose POC Glucose 163 H Lactic Acid Calcium Phosphorus Magnesium Direct Bilirubin AST ALT Alkaline Phosphatase Lactate Dehydrogenase Troponin T C-Reactive Protein Total Protein Albumin Prealbumin Triglycerides Cholesterol LDL Cholesterol Direct HDL Cholesterol Urine pH Urine WBC (Auto) Urine Creatinine 54.8 H Urine Total Protein Fluid Total Protein Vancomycin Trough 2.3 L Rheumatoid Factor Complement C4 Miscellaneous Test Crossmatch 09/21/16 09/21/16 09/22/16 16:51 23:17 06:27 WBC RBC Hgb Hct MCV MCH MCHC RDW Plt Count Lymph % (Auto) [place] % (Auto) Lymph # [place] # Baso # Seg Neutrophils % Seg Neuts % (Manual) Lymphocytes % (Manual) Monocytes % (Manual) Eosinophils % (Manual) Basophils % (Manual) Nucleated RBC % Seg Neutrophils # Seg Neutrophils # Man Lymphocytes # (Manual) Monocytes # (Manual) Eosinophils # (Manual) PT INR Fibrinogen dRVVT Confirm Interp Factor V Activity POC ABG pH POC ABG pCO2 POC ABG pO2 ABG pO2 ABG HCO3 ABG Base Excess ABG Hemoglobin Oxyhemoglobin Sodium Potassium Chloride Carbon Dioxide BUN Creatinine Glucose POC Glucose 206 H 114 H 115 H Lactic Acid Calcium Phosphorus Magnesium Direct Bilirubin AST ALT Alkaline Phosphatase Lactate Dehydrogenase Troponin T C-Reactive Protein Total Protein Albumin Prealbumin Triglycerides Cholesterol LDL Cholesterol Direct HDL Cholesterol Urine pH Urine WBC (Auto) Urine Creatinine Urine Total Protein Fluid Total Protein Vancomycin Trough Rheumatoid Factor Complement C4 Miscellaneous Test Crossmatch 09/22/16 09/22/16 09/22/16 07:50 07:50 12:00 WBC 17.8 H RBC 3.04 L Hgb 8.0 L Hct 24.7 L MCV MCH 26 L MCHC RDW 21.6 H Plt Count Lymph % (Auto) [place] % (Auto) Lymph # [place] # Baso # Seg Neutrophils % Seg Neuts % (Manual) Lymphocytes % (Manual) Monocytes % (Manual) Eosinophils % (Manual) Basophils % (Manual) Nucleated RBC % Seg Neutrophils # Seg Neutrophils # Man Lymphocytes # (Manual) Monocytes # (Manual) Eosinophils # (Manual) PT INR Fibrinogen dRVVT Confirm Interp Factor V Activity POC ABG pH POC ABG pCO2 POC ABG pO2 ABG pO2 ABG HCO3 ABG Base Excess ABG Hemoglobin Oxyhemoglobin Sodium 150 H Potassium Chloride 118.2 H Carbon Dioxide 14 L BUN 111 H Creatinine 3.7 H Glucose 157 H POC Glucose 183 H Lactic Acid Calcium Phosphorus Magnesium Direct Bilirubin AST ALT Alkaline Phosphatase Lactate Dehydrogenase Troponin T C-Reactive Protein Total Protein Albumin Prealbumin Triglycerides Cholesterol LDL Cholesterol Direct HDL Cholesterol Urine pH Urine WBC (Auto) Urine Creatinine Urine Total Protein Fluid Total Protein Vancomycin Trough Rheumatoid Factor Complement C4 Miscellaneous Test Crossmatch 09/22/16 09/22/16 09/23/16 17:29 23:10 05:00 WBC 19.2 H RBC 3.13 L Hgb 8.0 L Hct 25.2 L MCV MCH 26 L MCHC RDW 22.1 H Plt Count Lymph % (Auto) [place] % (Auto) Lymph # [place] # Baso # Seg Neutrophils % Seg Neuts % (Manual) 92.0 H Lymphocytes % (Manual) 3.0 L Monocytes % (Manual) Eosinophils % (Manual) Basophils % (Manual) Nucleated RBC % Seg Neutrophils # Seg Neutrophils # Man 17.7 H Lymphocytes # (Manual) 0.6 L Monocytes # (Manual) Eosinophils # (Manual) PT INR Fibrinogen dRVVT Confirm Interp Factor V Activity POC ABG pH POC ABG pCO2 POC ABG pO2 ABG pO2 ABG HCO3 ABG Base Excess ABG Hemoglobin Oxyhemoglobin Sodium Potassium Chloride Carbon Dioxide BUN Creatinine Glucose POC Glucose 197 H 169 H Lactic Acid Calcium Phosphorus Magnesium Direct Bilirubin AST ALT Alkaline Phosphatase Lactate Dehydrogenase Troponin T C-Reactive Protein Total Protein Albumin Prealbumin Triglycerides Cholesterol LDL Cholesterol Direct HDL Cholesterol Urine pH Urine WBC (Auto) Urine Creatinine Urine Total Protein Fluid Total Protein Vancomycin Trough Rheumatoid Factor Complement C4 Miscellaneous Test Crossmatch 09/23/16 09/23/16 09/23/16 05:00 05:00 05:10 WBC RBC Hgb Hct MCV MCH MCHC RDW Plt Count Lymph % (Auto) [place] % (Auto) Lymph # [place] # Baso # Seg Neutrophils % Seg Neuts % (Manual) Lymphocytes % (Manual) Monocytes % (Manual) Eosinophils % (Manual) Basophils % (Manual) Nucleated RBC % Seg Neutrophils # Seg Neutrophils # Man Lymphocytes # (Manual) Monocytes # (Manual) Eosinophils # (Manual) PT INR Fibrinogen dRVVT Confirm Interp Factor V Activity POC ABG pH POC ABG pCO2 POC ABG pO2 ABG pO2 ABG HCO3 ABG Base Excess ABG Hemoglobin Oxyhemoglobin Sodium 147 H Potassium 3.2 L Chloride 115.7 H Carbon Dioxide 13 L BUN 111 H Creatinine 3.8 H Glucose 194 H POC Glucose 188 H Lactic Acid Calcium 7.3 L D Phosphorus Magnesium Direct Bilirubin AST ALT Alkaline Phosphatase Lactate Dehydrogenase Troponin T C-Reactive Protein 3.20 H Total Protein Albumin Prealbumin Triglycerides Cholesterol LDL Cholesterol Direct HDL Cholesterol Urine pH Urine WBC (Auto) Urine Creatinine Urine Total Protein Fluid Total Protein Vancomycin Trough Rheumatoid Factor Complement C4 Miscellaneous Test Crossmatch 09/23/16 09/23/16 09/23/16 11:37 12:29 18:01 WBC RBC Hgb Hct MCV MCH MCHC RDW Plt Count Lymph % (Auto) [place] % (Auto) Lymph # [place] # Baso # Seg Neutrophils % Seg Neuts % (Manual) Lymphocytes % (Manual) Monocytes % (Manual) Eosinophils % (Manual) Basophils % (Manual) Nucleated RBC % Seg Neutrophils # Seg Neutrophils # Man Lymphocytes # (Manual) Monocytes # (Manual) Eosinophils # (Manual) PT INR Fibrinogen dRVVT Confirm Interp Factor V Activity POC ABG pH POC ABG pCO2 18.9 L POC ABG pO2 143 H ABG pO2 ABG HCO3 ABG Base Excess ABG Hemoglobin Oxyhemoglobin Sodium Potassium Chloride Carbon Dioxide BUN Creatinine Glucose POC Glucose 153 H 108 H Lactic Acid Calcium Phosphorus Magnesium Direct Bilirubin AST ALT Alkaline Phosphatase Lactate Dehydrogenase Troponin T C-Reactive Protein Total Protein Albumin Prealbumin Triglycerides Cholesterol LDL Cholesterol Direct HDL Cholesterol Urine pH Urine WBC (Auto) Urine Creatinine Urine Total Protein Fluid Total Protein Vancomycin Trough Rheumatoid Factor Complement C4 Miscellaneous Test Crossmatch 09/23/16 09/23/16 09/24/16 21:19 23:43 05:16 WBC RBC Hgb Hct MCV MCH MCHC RDW Plt Count Lymph % (Auto) [place] % (Auto) Lymph # [place] # Baso # Seg Neutrophils % Seg Neuts % (Manual) Lymphocytes % (Manual) Monocytes % (Manual) Eosinophils % (Manual) Basophils % (Manual) Nucleated RBC % Seg Neutrophils # Seg Neutrophils # Man Lymphocytes # (Manual) Monocytes # (Manual) Eosinophils # (Manual) PT INR Fibrinogen dRVVT Confirm Interp Factor V Activity POC ABG pH POC ABG pCO2 17.3 L POC ABG pO2 112 H ABG pO2 ABG HCO3 ABG Base Excess ABG Hemoglobin Oxyhemoglobin Sodium Potassium Chloride Carbon Dioxide BUN Creatinine Glucose POC Glucose 143 H 164 H Lactic Acid Calcium Phosphorus Magnesium Direct Bilirubin AST ALT Alkaline Phosphatase Lactate Dehydrogenase Troponin T C-Reactive Protein Total Protein Albumin Prealbumin Triglycerides Cholesterol LDL Cholesterol Direct HDL Cholesterol Urine pH Urine WBC (Auto) Urine Creatinine Urine Total Protein Fluid Total Protein Vancomycin Trough Rheumatoid Factor Complement C4 Miscellaneous Test Crossmatch 09/24/16 09/24/16 09/24/16 05:21 11:58 17:06 WBC RBC Hgb Hct MCV MCH MCHC RDW Plt Count Lymph % (Auto) [place] % (Auto) Lymph # [place] # Baso # Seg Neutrophils % Seg Neuts % (Manual) Lymphocytes % (Manual) Monocytes % (Manual) Eosinophils % (Manual) Basophils % (Manual) Nucleated RBC % Seg Neutrophils # Seg Neutrophils # Man Lymphocytes # (Manual) Monocytes # (Manual) Eosinophils # (Manual) PT INR Fibrinogen dRVVT Confirm Interp Factor V Activity POC ABG pH POC ABG pCO2 POC ABG pO2 ABG pO2 ABG HCO3 ABG Base Excess ABG Hemoglobin Oxyhemoglobin Sodium Potassium Chloride Carbon Dioxide 10 L BUN 103 H Creatinine 4.3 H Glucose 163 H POC Glucose 173 H 167 H Lactic Acid Calcium 6.5 L Phosphorus Magnesium Direct Bilirubin AST ALT Alkaline Phosphatase Lactate Dehydrogenase Troponin T C-Reactive Protein Total Protein Albumin Prealbumin Triglycerides Cholesterol LDL Cholesterol Direct HDL Cholesterol Urine pH Urine WBC (Auto) Urine Creatinine Urine Total Protein Fluid Total Protein Vancomycin Trough Rheumatoid Factor Complement C4 Miscellaneous Test Crossmatch 09/24/16 09/24/16 09/24/16 20:15 21:02 23:48 WBC RBC Hgb Hct MCV MCH MCHC RDW Plt Count Lymph % (Auto) [place] % (Auto) Lymph # [place] # Baso # Seg Neutrophils % Seg Neuts % (Manual) Lymphocytes % (Manual) Monocytes % (Manual) Eosinophils % (Manual) Basophils % (Manual) Nucleated RBC % Seg Neutrophils # Seg Neutrophils # Man Lymphocytes # (Manual) Monocytes # (Manual) Eosinophils # (Manual) PT INR Fibrinogen dRVVT Confirm Interp Factor V Activity POC ABG pH 7.288 L POC ABG pCO2 30.2 L 21.5 L POC ABG pO2 32 L 39 L ABG pO2 ABG HCO3 ABG Base Excess ABG Hemoglobin Oxyhemoglobin Sodium Potassium Chloride Carbon Dioxide BUN Creatinine Glucose POC Glucose 109 H Lactic Acid Calcium Phosphorus Magnesium Direct Bilirubin AST ALT Alkaline Phosphatase Lactate Dehydrogenase Troponin T C-Reactive Protein Total Protein Albumin Prealbumin Triglycerides Cholesterol LDL Cholesterol Direct HDL Cholesterol Urine pH Urine WBC (Auto) Urine Creatinine Urine Total Protein Fluid Total Protein Vancomycin Trough Rheumatoid Factor Complement C4 Miscellaneous Test Crossmatch 09/25/16 09/25/16 09/25/16 04:20 04:20 04:20 WBC RBC 2.58 L Hgb 7.0 L Hct 21.0 L MCV MCH 27 L MCHC RDW 23.8 H Plt Count Lymph % (Auto) [place] % (Auto) Lymph # [place] # Baso # Seg Neutrophils % Seg Neuts % (Manual) Lymphocytes % (Manual) 12.0 L Monocytes % (Manual) Eosinophils % (Manual) 7.0 H Basophils % (Manual) 2.0 H Nucleated RBC % Seg Neutrophils # Seg Neutrophils # Man Lymphocytes # (Manual) 0.9 L Monocytes # (Manual) Eosinophils # (Manual) 0.5 H PT INR Fibrinogen dRVVT Confirm Interp Factor V Activity POC ABG pH POC ABG pCO2 POC ABG pO2 ABG pO2 ABG HCO3 ABG Base Excess ABG Hemoglobin Oxyhemoglobin Sodium Potassium Chloride Carbon Dioxide 15 L BUN 72 H Creatinine 3.8 H Glucose POC Glucose Lactic Acid Calcium 6.0 L Phosphorus 4.60 H Magnesium 1.60 L Direct Bilirubin AST ALT Alkaline Phosphatase Lactate Dehydrogenase Troponin T C-Reactive Protein Total Protein Albumin Prealbumin Triglycerides Cholesterol LDL Cholesterol Direct HDL Cholesterol Urine pH Urine WBC (Auto) Urine Creatinine Urine Total Protein Fluid Total Protein Vancomycin Trough Rheumatoid Factor Complement C4 Miscellaneous Test Crossmatch 09/25/16 09/25/16 09/25/16 04:57 08:02 10:30 WBC RBC Hgb Hct MCV MCH MCHC RDW Plt Count Lymph % (Auto) [place] % (Auto) Lymph # [place] # Baso # Seg Neutrophils % Seg Neuts % (Manual) Lymphocytes % (Manual) Monocytes % (Manual) Eosinophils % (Manual) Basophils % (Manual) Nucleated RBC % Seg Neutrophils # Seg Neutrophils # Man Lymphocytes # (Manual) Monocytes # (Manual) Eosinophils # (Manual) PT INR Fibrinogen dRVVT Confirm Interp Factor V Activity POC ABG pH POC ABG pCO2 24.7 L POC ABG pO2 152 H ABG pO2 ABG HCO3 ABG Base Excess ABG Hemoglobin Oxyhemoglobin Sodium Potassium Chloride Carbon Dioxide BUN Creatinine Glucose POC Glucose 113 H Lactic Acid Calcium Phosphorus Magnesium Direct Bilirubin AST ALT Alkaline Phosphatase Lactate Dehydrogenase Troponin T C-Reactive Protein Total Protein Albumin Prealbumin Triglycerides Cholesterol LDL Cholesterol Direct HDL Cholesterol Urine pH Urine WBC (Auto) Urine Creatinine Urine Total Protein Fluid Total Protein Vancomycin Trough Rheumatoid Factor Complement C4 Miscellaneous Test Crossmatch See Detail 09/25/16 09/25/16 09/25/16 12:05 17:44 23:47 WBC RBC Hgb Hct MCV MCH MCHC RDW Plt Count Lymph % (Auto) [place] % (Auto) Lymph # [place] # Baso # Seg Neutrophils % Seg Neuts % (Manual) Lymphocytes % (Manual) Monocytes % (Manual) Eosinophils % (Manual) Basophils % (Manual) Nucleated RBC % Seg Neutrophils # Seg Neutrophils # Man Lymphocytes # (Manual) Monocytes # (Manual) Eosinophils # (Manual) PT INR Fibrinogen dRVVT Confirm Interp Factor V Activity POC ABG pH POC ABG pCO2 POC ABG pO2 ABG pO2 ABG HCO3 ABG Base Excess ABG Hemoglobin Oxyhemoglobin Sodium Potassium Chloride Carbon Dioxide BUN Creatinine Glucose POC Glucose 117 H 119 H 150 H Lactic Acid Calcium Phosphorus Magnesium Direct Bilirubin AST ALT Alkaline Phosphatase Lactate Dehydrogenase Troponin T C-Reactive Protein Total Protein Albumin Prealbumin Triglycerides Cholesterol LDL Cholesterol Direct HDL Cholesterol Urine pH Urine WBC (Auto) Urine Creatinine Urine Total Protein Fluid Total Protein Vancomycin Trough Rheumatoid Factor Complement C4 Miscellaneous Test Crossmatch 09/26/16 09/26/16 09/26/16 04:25 04:25 04:25 WBC RBC 2.65 L Hgb 7.4 L Hct 21.6 L MCV MCH MCHC RDW 22.5 H Plt Count Lymph % (Auto) [place] % (Auto) Lymph # [place] # Baso # Seg Neutrophils % Seg Neuts % (Manual) Lymphocytes % (Manual) 6.0 L Monocytes % (Manual) Eosinophils % (Manual) 11.0 H Basophils % (Manual) Nucleated RBC % Seg Neutrophils # Seg Neutrophils # Man Lymphocytes # (Manual) 0.4 L Monocytes # (Manual) Eosinophils # (Manual) 0.6 H PT INR Fibrinogen dRVVT Confirm Interp Factor V Activity POC ABG pH POC ABG pCO2 POC ABG pO2 ABG pO2 ABG HCO3 ABG Base Excess ABG Hemoglobin Oxyhemoglobin Sodium Potassium Chloride 97.0 L Carbon Dioxide 19 L BUN 43 H Creatinine 2.6 H Glucose 130 H POC Glucose Lactic Acid 4.40 H* Calcium 6.7 L Phosphorus Magnesium Direct Bilirubin AST ALT Alkaline Phosphatase Lactate Dehydrogenase Troponin T C-Reactive Protein Total Protein Albumin Prealbumin Triglycerides Cholesterol LDL Cholesterol Direct HDL Cholesterol Urine pH Urine WBC (Auto) Urine Creatinine Urine Total Protein Fluid Total Protein Vancomycin Trough Rheumatoid Factor Complement C4 Miscellaneous Test Crossmatch 09/26/16 09/26/16 09/26/16 05:20 11:44 12:12 WBC RBC Hgb Hct MCV MCH MCHC RDW Plt Count Lymph % (Auto) [place] % (Auto) Lymph # [place] # Baso # Seg Neutrophils % Seg Neuts % (Manual) Lymphocytes % (Manual) Monocytes % (Manual) Eosinophils % (Manual) Basophils % (Manual) Nucleated RBC % Seg Neutrophils # Seg Neutrophils # Man Lymphocytes # (Manual) Monocytes # (Manual) Eosinophils # (Manual) PT INR Fibrinogen dRVVT Confirm Interp Factor V Activity POC ABG pH POC ABG pCO2 27.0 L POC ABG pO2 69 L ABG pO2 ABG HCO3 ABG Base Excess ABG Hemoglobin Oxyhemoglobin Sodium Potassium Chloride Carbon Dioxide BUN Creatinine Glucose POC Glucose 121 H 128 H Lactic Acid Calcium Phosphorus Magnesium Direct Bilirubin AST ALT Alkaline Phosphatase Lactate Dehydrogenase Troponin T C-Reactive Protein Total Protein Albumin Prealbumin Triglycerides Cholesterol LDL Cholesterol Direct HDL Cholesterol Urine pH Urine WBC (Auto) Urine Creatinine Urine Total Protein Fluid Total Protein Vancomycin Trough Rheumatoid Factor Complement C4 Miscellaneous Test Crossmatch 09/26/16 09/26/16 09/27/16 18:31 23:40 08:20 WBC RBC Hgb Hct MCV MCH MCHC RDW Plt Count Lymph % (Auto) [place] % (Auto) Lymph # [place] # Baso # Seg Neutrophils % Seg Neuts % (Manual) Lymphocytes % (Manual) Monocytes % (Manual) Eosinophils % (Manual) Basophils % (Manual) Nucleated RBC % Seg Neutrophils # Seg Neutrophils # Man Lymphocytes # (Manual) Monocytes # (Manual) Eosinophils # (Manual) PT INR Fibrinogen dRVVT Confirm Interp Factor V Activity POC ABG pH POC ABG pCO2 POC ABG pO2 ABG pO2 ABG HCO3 ABG Base Excess ABG Hemoglobin Oxyhemoglobin Sodium Potassium Chloride Carbon Dioxide BUN Creatinine Glucose POC Glucose 120 H 133 H Lactic Acid 4.10 H* Calcium Phosphorus Magnesium Direct Bilirubin AST ALT Alkaline Phosphatase Lactate Dehydrogenase Troponin T C-Reactive Protein Total Protein Albumin Prealbumin Triglycerides Cholesterol LDL Cholesterol Direct HDL Cholesterol Urine pH Urine WBC (Auto) Urine Creatinine Urine Total Protein Fluid Total Protein Vancomycin Trough Rheumatoid Factor Complement C4 Miscellaneous Test Crossmatch 09/27/16 09/27/16 09/27/16 11:23 15:00 18:15 WBC RBC Hgb Hct MCV MCH MCHC RDW Plt Count Lymph % (Auto) [place] % (Auto) Lymph # [place] # Baso # Seg Neutrophils % Seg Neuts % (Manual) Lymphocytes % (Manual) Monocytes % (Manual) Eosinophils % (Manual) Basophils % (Manual) Nucleated RBC % Seg Neutrophils # Seg Neutrophils # Man Lymphocytes # (Manual) Monocytes # (Manual) Eosinophils # (Manual) PT INR Fibrinogen dRVVT Confirm Interp Factor V Activity POC ABG pH 7.459 H POC ABG pCO2 27.1 L POC ABG pO2 140 H ABG pO2 ABG HCO3 ABG Base Excess ABG Hemoglobin Oxyhemoglobin Sodium Potassium Chloride Carbon Dioxide BUN Creatinine Glucose POC Glucose 114 H 127 H Lactic Acid Calcium Phosphorus Magnesium Direct Bilirubin AST ALT Alkaline Phosphatase Lactate Dehydrogenase Troponin T C-Reactive Protein Total Protein Albumin Prealbumin Triglycerides Cholesterol LDL Cholesterol Direct HDL Cholesterol Urine pH Urine WBC (Auto) Urine Creatinine Urine Total Protein Fluid Total Protein Vancomycin Trough Rheumatoid Factor Complement C4 Miscellaneous Test Crossmatch 09/27/16 09/27/16 09/28/16 Unknown Unknown 03:45 WBC RBC 2.49 L Hgb 6.8 L Hct 20.7 L MCV MCH 27 L MCHC RDW 22.1 H Plt Count Lymph % (Auto) [place] % (Auto) Lymph # [place] # Baso # Seg Neutrophils % Seg Neuts % (Manual) 32.0 L Lymphocytes % (Manual) 12.0 L Monocytes % (Manual) 11.0 H Eosinophils % (Manual) 10.0 H Basophils % (Manual) Nucleated RBC % Seg Neutrophils # Seg Neutrophils # Man Lymphocytes # (Manual) 1.0 L Monocytes # (Manual) 0.9 H Eosinophils # (Manual) 0.8 H PT INR Fibrinogen dRVVT Confirm Interp Factor V Activity POC ABG pH POC ABG pCO2 POC ABG pO2 ABG pO2 ABG HCO3 ABG Base Excess ABG Hemoglobin Oxyhemoglobin Sodium 135 L 135 L Potassium 3.5 L Chloride 93.6 L 94.4 L Carbon Dioxide 17 L 21 L BUN 45 H 28 H Creatinine 3.3 H 2.5 H Glucose 106 H POC Glucose Lactic Acid Calcium 7.3 L 7.1 L Phosphorus Magnesium Direct Bilirubin AST ALT Alkaline Phosphatase Lactate Dehydrogenase Troponin T C-Reactive Protein Total Protein Albumin Prealbumin Triglycerides Cholesterol LDL Cholesterol Direct HDL Cholesterol Urine pH Urine WBC (Auto) Urine Creatinine Urine Total Protein Fluid Total Protein Vancomycin Trough Rheumatoid Factor Complement C4 Miscellaneous Test Crossmatch 09/28/16 09/28/16 09/28/16 03:45 07:25 11:58 WBC 13.3 H RBC 3.01 L Hgb 8.4 L Hct 25.0 L MCV MCH MCHC RDW 20.5 H Plt Count 128 L Lymph % (Auto) [place] % (Auto) Lymph # [place] # Baso # Seg Neutrophils % Seg Neuts % (Manual) Lymphocytes % (Manual) 7.0 L Monocytes % (Manual) Eosinophils % (Manual) 6.0 H Basophils % (Manual) Nucleated RBC % Seg Neutrophils # Seg Neutrophils # Man Lymphocytes # (Manual) 0.9 L Monocytes # (Manual) Eosinophils # (Manual) 0.8 H PT INR Fibrinogen dRVVT Confirm Interp Factor V Activity POC ABG pH POC ABG pCO2 POC ABG pO2 ABG pO2 ABG HCO3 ABG Base Excess ABG Hemoglobin Oxyhemoglobin Sodium Potassium Chloride Carbon Dioxide BUN Creatinine Glucose POC Glucose 121 H Lactic Acid 4.50 H* Calcium Phosphorus Magnesium Direct Bilirubin AST ALT Alkaline Phosphatase Lactate Dehydrogenase Troponin T C-Reactive Protein Total Protein Albumin Prealbumin Triglycerides Cholesterol LDL Cholesterol Direct HDL Cholesterol Urine pH Urine WBC (Auto) Urine Creatinine Urine Total Protein Fluid Total Protein Vancomycin Trough Rheumatoid Factor Complement C4 Miscellaneous Test Crossmatch 09/29/16 09/29/16 09/29/16 06:45 06:45 06:45 WBC 14.9 H RBC 2.74 L Hgb 7.6 L Hct 23.2 L MCV MCH MCHC RDW 20.5 H Plt Count 81 L Lymph % (Auto) [place] % (Auto) Lymph # [place] # Baso # Seg Neutrophils % Seg Neuts % (Manual) 81.0 H Lymphocytes % (Manual) 4.0 L Monocytes % (Manual) Eosinophils % (Manual) Basophils % (Manual) Nucleated RBC % Seg Neutrophils # Seg Neutrophils # Man 12.1 H Lymphocytes # (Manual) 0.6 L Monocytes # (Manual) Eosinophils # (Manual) PT INR Fibrinogen dRVVT Confirm Interp Factor V Activity POC ABG pH POC ABG pCO2 POC ABG pO2 ABG pO2 ABG HCO3 ABG Base Excess ABG Hemoglobin Oxyhemoglobin Sodium 133 L Potassium 3.4 L Chloride 92.5 L Carbon Dioxide 21 L BUN 33 H Creatinine 3.0 H Glucose POC Glucose Lactic Acid Calcium 6.6 L Phosphorus Magnesium 1.40 L Direct Bilirubin 0.9 H AST ALT Alkaline Phosphatase Lactate Dehydrogenase Troponin T C-Reactive Protein Total Protein 4.3 L Albumin 1.3 L Prealbumin Triglycerides Cholesterol LDL Cholesterol Direct HDL Cholesterol Urine pH Urine WBC (Auto) Urine Creatinine Urine Total Protein Fluid Total Protein Vancomycin Trough Rheumatoid Factor Complement C4 Miscellaneous Test Crossmatch 09/29/16 09/29/16 09/30/16 17:52 20:12 00:07 WBC RBC Hgb Hct MCV MCH MCHC RDW Plt Count Lymph % (Auto) [place] % (Auto) Lymph # [place] # Baso # Seg Neutrophils % Seg Neuts % (Manual) Lymphocytes % (Manual) Monocytes % (Manual) Eosinophils % (Manual) Basophils % (Manual) Nucleated RBC % Seg Neutrophils # Seg Neutrophils # Man Lymphocytes # (Manual) Monocytes # (Manual) Eosinophils # (Manual) PT INR Fibrinogen dRVVT Confirm Interp Factor V Activity POC ABG pH POC ABG pCO2 POC ABG pO2 ABG pO2 ABG HCO3 ABG Base Excess ABG Hemoglobin Oxyhemoglobin Sodium Potassium Chloride Carbon Dioxide BUN Creatinine Glucose POC Glucose 50 L 51 L Lactic Acid Calcium Phosphorus Magnesium Direct Bilirubin AST ALT Alkaline Phosphatase Lactate Dehydrogenase Troponin T 0.204 H* C-Reactive Protein Total Protein Albumin Prealbumin Triglycerides Cholesterol 31 L LDL Cholesterol Direct 4 L HDL Cholesterol 3 L Urine pH Urine WBC (Auto) Urine Creatinine Urine Total Protein Fluid Total Protein Vancomycin Trough Rheumatoid Factor Complement C4 Miscellaneous Test Crossmatch 09/30/16 09/30/16 09/30/16 01:30 05:15 06:10 WBC RBC Hgb Hct MCV MCH MCHC RDW Plt Count Lymph % (Auto) [place] % (Auto) Lymph # [place] # Baso # Seg Neutrophils % Seg Neuts % (Manual) Lymphocytes % (Manual) Monocytes % (Manual) Eosinophils % (Manual) Basophils % (Manual) Nucleated RBC % Seg Neutrophils # Seg Neutrophils # Man Lymphocytes # (Manual) Monocytes # (Manual) Eosinophils # (Manual) PT INR Fibrinogen dRVVT Confirm Interp Factor V Activity POC ABG pH POC ABG pCO2 POC ABG pO2 ABG pO2 ABG HCO3 ABG Base Excess ABG Hemoglobin Oxyhemoglobin Sodium 133 L Potassium 3.2 L Chloride 93.2 L Carbon Dioxide 19 L BUN 36 H Creatinine 3.2 H Glucose 104 H POC Glucose 167 H 146 H Lactic Acid Calcium 6.4 L Phosphorus Magnesium 1.60 L Direct Bilirubin AST ALT Alkaline Phosphatase Lactate Dehydrogenase Troponin T C-Reactive Protein Total Protein Albumin Prealbumin Triglycerides Cholesterol LDL Cholesterol Direct HDL Cholesterol Urine pH Urine WBC (Auto) Urine Creatinine Urine Total Protein Fluid Total Protein Vancomycin Trough Rheumatoid Factor Complement C4 Miscellaneous Test Crossmatch 09/30/16 09/30/16 09/30/16 11:26 13:39 18:38 WBC RBC Hgb Hct MCV MCH MCHC RDW Plt Count Lymph % (Auto) [place] % (Auto) Lymph # [place] # Baso # Seg Neutrophils % Seg Neuts % (Manual) Lymphocytes % (Manual) Monocytes % (Manual) Eosinophils % (Manual) Basophils % (Manual) Nucleated RBC % Seg Neutrophils # Seg Neutrophils # Man Lymphocytes # (Manual) Monocytes # (Manual) Eosinophils # (Manual) PT INR Fibrinogen dRVVT Confirm Interp Factor V Activity POC ABG pH 7.479 H POC ABG pCO2 29.8 L POC ABG pO2 117 H ABG pO2 ABG HCO3 ABG Base Excess ABG Hemoglobin Oxyhemoglobin Sodium Potassium Chloride Carbon Dioxide BUN Creatinine Glucose POC Glucose 140 H 122 H Lactic Acid Calcium Phosphorus Magnesium Direct Bilirubin AST ALT Alkaline Phosphatase Lactate Dehydrogenase Troponin T C-Reactive Protein Total Protein Albumin Prealbumin Triglycerides Cholesterol LDL Cholesterol Direct HDL Cholesterol Urine pH Urine WBC (Auto) Urine Creatinine Urine Total Protein Fluid Total Protein Vancomycin Trough Rheumatoid Factor Complement C4 Miscellaneous Test Crossmatch 10/01/16 10/01/16 10/01/16 06:00 06:00 12:37 WBC 12.6 H RBC 2.75 L Hgb 7.3 L Hct 23.3 L MCV MCH 27 L MCHC RDW 20.6 H Plt Count 72 L Lymph % (Auto) [place] % (Auto) Lymph # [place] # Baso # Seg Neutrophils % Seg Neuts % (Manual) 31.0 L Lymphocytes % (Manual) 8.0 L Monocytes % (Manual) Eosinophils % (Manual) Basophils % (Manual) Nucleated RBC % 3.0 H Seg Neutrophils # Seg Neutrophils # Man Lymphocytes # (Manual) 1.0 L Monocytes # (Manual) Eosinophils # (Manual) PT INR Fibrinogen dRVVT Confirm Interp Factor V Activity POC ABG pH POC ABG pCO2 POC ABG pO2 ABG pO2 ABG HCO3 ABG Base Excess ABG Hemoglobin Oxyhemoglobin Sodium 127 L Potassium Chloride 86.8 L Carbon Dioxide 20 L BUN 42 H Creatinine 3.5 H Glucose POC Glucose 65 L Lactic Acid Calcium 7.0 L Phosphorus Magnesium Direct Bilirubin AST ALT Alkaline Phosphatase Lactate Dehydrogenase Troponin T C-Reactive Protein Total Protein Albumin Prealbumin Triglycerides Cholesterol LDL Cholesterol Direct HDL Cholesterol Urine pH Urine WBC (Auto) Urine Creatinine Urine Total Protein Fluid Total Protein Vancomycin Trough Rheumatoid Factor Complement C4 Miscellaneous Test Crossmatch 10/01/16 10/01/16 10/02/16 17:39 23:32 00:59 WBC RBC Hgb Hct MCV MCH MCHC RDW Plt Count Lymph % (Auto) [place] % (Auto) Lymph # [place] # Baso # Seg Neutrophils % Seg Neuts % (Manual) Lymphocytes % (Manual) Monocytes % (Manual) Eosinophils % (Manual) Basophils % (Manual) Nucleated RBC % Seg Neutrophils # Seg Neutrophils # Man Lymphocytes # (Manual) Monocytes # (Manual) Eosinophils # (Manual) PT INR Fibrinogen dRVVT Confirm Interp Factor V Activity POC ABG pH POC ABG pCO2 POC ABG pO2 ABG pO2 ABG HCO3 ABG Base Excess ABG Hemoglobin Oxyhemoglobin Sodium Potassium Chloride Carbon Dioxide BUN Creatinine Glucose POC Glucose 107 H 52 L 145 H Lactic Acid Calcium Phosphorus Magnesium Direct Bilirubin AST ALT Alkaline Phosphatase Lactate Dehydrogenase Troponin T C-Reactive Protein Total Protein Albumin Prealbumin Triglycerides Cholesterol LDL Cholesterol Direct HDL Cholesterol Urine pH Urine WBC (Auto) Urine Creatinine Urine Total Protein Fluid Total Protein Vancomycin Trough Rheumatoid Factor Complement C4 Miscellaneous Test Crossmatch 10/02/16 10/02/16 10/02/16 10:30 10:50 10:50 WBC 14.7 H RBC 2.76 L Hgb 7.4 L Hct 23.6 L MCV MCH 27 L MCHC RDW 20.2 H Plt Count 79 L Lymph % (Auto) [place] % (Auto) Lymph # [place] # Baso # Seg Neutrophils % Seg Neuts % (Manual) 86.0 H Lymphocytes % (Manual) 6.0 L Monocytes % (Manual) Eosinophils % (Manual) Basophils % (Manual) Nucleated RBC % Seg Neutrophils # Seg Neutrophils # Man 12.6 H Lymphocytes # (Manual) 0.9 L Monocytes # (Manual) Eosinophils # (Manual) PT INR Fibrinogen dRVVT Confirm Interp Factor V Activity POC ABG pH 7.486 H POC ABG pCO2 30.1 L POC ABG pO2 108 H ABG pO2 ABG HCO3 ABG Base Excess ABG Hemoglobin Oxyhemoglobin Sodium 131 L Potassium 3.4 L Chloride 89.9 L Carbon Dioxide BUN 26 H Creatinine 2.6 H Glucose POC Glucose Lactic Acid Calcium 7.0 L Phosphorus Magnesium Direct Bilirubin AST ALT Alkaline Phosphatase Lactate Dehydrogenase Troponin T C-Reactive Protein Total Protein Albumin Prealbumin Triglycerides Cholesterol LDL Cholesterol Direct HDL Cholesterol Urine pH Urine WBC (Auto) Urine Creatinine Urine Total Protein Fluid Total Protein Vancomycin Trough Rheumatoid Factor Complement C4 Miscellaneous Test Crossmatch 10/02/16 10/03/16 10/03/16 23:45 00:45 05:10 WBC 12.9 H RBC 2.77 L Hgb 7.6 L Hct 23.7 L MCV MCH 27 L MCHC RDW 19.7 H Plt Count 89 L Lymph % (Auto) [place] % (Auto) Lymph # [place] # Baso # Seg Neutrophils % Seg Neuts % (Manual) Lymphocytes % (Manual) 8.0 L Monocytes % (Manual) Eosinophils % (Manual) Basophils % (Manual) Nucleated RBC % Seg Neutrophils # 11.9 H Seg Neutrophils # Man Lymphocytes # (Manual) 1.0 L Monocytes # (Manual) Eosinophils # (Manual) PT INR Fibrinogen dRVVT Confirm Interp Factor V Activity POC ABG pH POC ABG pCO2 POC ABG pO2 ABG pO2 ABG HCO3 ABG Base Excess ABG Hemoglobin Oxyhemoglobin Sodium Potassium Chloride Carbon Dioxide BUN Creatinine Glucose POC Glucose 55 L 199 H Lactic Acid Calcium Phosphorus Magnesium Direct Bilirubin AST ALT Alkaline Phosphatase Lactate Dehydrogenase Troponin T C-Reactive Protein Total Protein Albumin Prealbumin Triglycerides Cholesterol LDL Cholesterol Direct HDL Cholesterol Urine pH Urine WBC (Auto) Urine Creatinine Urine Total Protein Fluid Total Protein Vancomycin Trough Rheumatoid Factor Complement C4 Miscellaneous Test Crossmatch 10/03/16 10/03/16 10/03/16 05:10 12:14 13:18 WBC RBC Hgb Hct MCV MCH MCHC RDW Plt Count Lymph % (Auto) [place] % (Auto) Lymph # [place] # Baso # Seg Neutrophils % Seg Neuts % (Manual) Lymphocytes % (Manual) Monocytes % (Manual) Eosinophils % (Manual) Basophils % (Manual) Nucleated RBC % Seg Neutrophils # Seg Neutrophils # Man Lymphocytes # (Manual) Monocytes # (Manual) Eosinophils # (Manual) PT INR Fibrinogen dRVVT Confirm Interp Factor V Activity POC ABG pH POC ABG pCO2 POC ABG pO2 ABG pO2 ABG HCO3 ABG Base Excess ABG Hemoglobin Oxyhemoglobin Sodium 129 L Potassium 3.3 L Chloride 88.8 L Carbon Dioxide 20 L BUN 29 H Creatinine 2.8 H Glucose POC Glucose 68 L 127 H Lactic Acid Calcium 7.2 L Phosphorus Magnesium Direct Bilirubin AST ALT Alkaline Phosphatase Lactate Dehydrogenase Troponin T C-Reactive Protein Total Protein Albumin Prealbumin Triglycerides Cholesterol LDL Cholesterol Direct HDL Cholesterol Urine pH Urine WBC (Auto) Urine Creatinine Urine Total Protein Fluid Total Protein Vancomycin Trough Rheumatoid Factor Complement C4 Miscellaneous Test Crossmatch 10/03/16 10/03/16 10/03/16 14:42 18:21 19:09 WBC RBC Hgb Hct MCV MCH MCHC RDW Plt Count Lymph % (Auto) [place] % (Auto) Lymph # [place] # Baso # Seg Neutrophils % Seg Neuts % (Manual) Lymphocytes % (Manual) Monocytes % (Manual) Eosinophils % (Manual) Basophils % (Manual) Nucleated RBC % Seg Neutrophils # Seg Neutrophils # Man Lymphocytes # (Manual) Monocytes # (Manual) Eosinophils # (Manual) PT INR Fibrinogen dRVVT Confirm Interp Factor V Activity POC ABG pH 7.499 H POC ABG pCO2 28.4 L POC ABG pO2 44 L ABG pO2 ABG HCO3 ABG Base Excess ABG Hemoglobin Oxyhemoglobin Sodium Potassium Chloride Carbon Dioxide BUN Creatinine Glucose POC Glucose 64 L 205 H Lactic Acid Calcium Phosphorus Magnesium Direct Bilirubin AST ALT Alkaline Phosphatase Lactate Dehydrogenase Troponin T C-Reactive Protein Total Protein Albumin Prealbumin Triglycerides Cholesterol LDL Cholesterol Direct HDL Cholesterol Urine pH Urine WBC (Auto) Urine Creatinine Urine Total Protein Fluid Total Protein Vancomycin Trough Rheumatoid Factor Complement C4 Miscellaneous Test Crossmatch 10/03/16 10/04/16 10/04/16 23:33 04:18 06:30 WBC RBC 2.54 L Hgb 7.1 L Hct 21.7 L MCV MCH MCHC RDW 19.5 H Plt Count 76 L Lymph % (Auto) [place] % (Auto) Lymph # [place] # Baso # Seg Neutrophils % Seg Neuts % (Manual) 88.0 H Lymphocytes % (Manual) 6.0 L Monocytes % (Manual) Eosinophils % (Manual) Basophils % (Manual) Nucleated RBC % Seg Neutrophils # Seg Neutrophils # Man 8.8 H Lymphocytes # (Manual) 0.6 L Monocytes # (Manual) Eosinophils # (Manual) PT INR Fibrinogen dRVVT Confirm Interp Factor V Activity POC ABG pH 7.461 H POC ABG pCO2 33.6 L POC ABG pO2 211 H ABG pO2 ABG HCO3 ABG Base Excess ABG Hemoglobin Oxyhemoglobin Sodium Potassium Chloride Carbon Dioxide BUN Creatinine Glucose POC Glucose 136 H Lactic Acid Calcium Phosphorus Magnesium Direct Bilirubin AST ALT Alkaline Phosphatase Lactate Dehydrogenase Troponin T C-Reactive Protein Total Protein Albumin Prealbumin Triglycerides Cholesterol LDL Cholesterol Direct HDL Cholesterol Urine pH Urine WBC (Auto) Urine Creatinine Urine Total Protein Fluid Total Protein Vancomycin Trough Rheumatoid Factor Complement C4 Miscellaneous Test Crossmatch 10/04/16 10/04/16 10/04/16 06:30 11:45 17:54 WBC RBC Hgb Hct MCV MCH MCHC RDW Plt Count Lymph % (Auto) [place] % (Auto) Lymph # [place] # Baso # Seg Neutrophils % Seg Neuts % (Manual) Lymphocytes % (Manual) Monocytes % (Manual) Eosinophils % (Manual) Basophils % (Manual) Nucleated RBC % Seg Neutrophils # Seg Neutrophils # Man Lymphocytes # (Manual) Monocytes # (Manual) Eosinophils # (Manual) PT INR Fibrinogen dRVVT Confirm Interp Factor V Activity POC ABG pH POC ABG pCO2 POC ABG pO2 ABG pO2 ABG HCO3 ABG Base Excess ABG Hemoglobin Oxyhemoglobin Sodium 128 L Potassium Chloride 87.4 L Carbon Dioxide 20 L BUN 34 H Creatinine 2.9 H Glucose 127 H POC Glucose 158 H 160 H Lactic Acid Calcium 7.4 L Phosphorus Magnesium Direct Bilirubin AST ALT Alkaline Phosphatase Lactate Dehydrogenase Troponin T C-Reactive Protein Total Protein Albumin Prealbumin Triglycerides Cholesterol LDL Cholesterol Direct HDL Cholesterol Urine pH Urine WBC (Auto) Urine Creatinine Urine Total Protein Fluid Total Protein Vancomycin Trough Rheumatoid Factor Complement C4 Miscellaneous Test Crossmatch 10/04/16 10/05/16 10/05/16 23:25 04:30 05:00 WBC RBC 2.64 L Hgb 7.5 L Hct 22.6 L MCV MCH MCHC RDW 19.3 H Plt Count 80 L Lymph % (Auto) [place] % (Auto) Lymph # [place] # Baso # Seg Neutrophils % Seg Neuts % (Manual) Lymphocytes % (Manual) 12.0 L Monocytes % (Manual) Eosinophils % (Manual) Basophils % (Manual) Nucleated RBC % Seg Neutrophils # Seg Neutrophils # Man Lymphocytes # (Manual) Monocytes # (Manual) Eosinophils # (Manual) PT INR Fibrinogen dRVVT Confirm Interp Factor V Activity POC ABG pH 7.475 H POC ABG pCO2 33.3 L POC ABG pO2 140 H ABG pO2 ABG HCO3 ABG Base Excess ABG Hemoglobin Oxyhemoglobin Sodium Potassium Chloride Carbon Dioxide BUN Creatinine Glucose POC Glucose 141 H Lactic Acid Calcium Phosphorus Magnesium Direct Bilirubin AST ALT Alkaline Phosphatase Lactate Dehydrogenase Troponin T C-Reactive Protein Total Protein Albumin Prealbumin Triglycerides Cholesterol LDL Cholesterol Direct HDL Cholesterol Urine pH Urine WBC (Auto) Urine Creatinine Urine Total Protein Fluid Total Protein Vancomycin Trough Rheumatoid Factor Complement C4 Miscellaneous Test Crossmatch 10/05/16 10/05/16 10/05/16 05:00 05:09 12:58 WBC RBC Hgb Hct MCV MCH MCHC RDW Plt Count Lymph % (Auto) [place] % (Auto) Lymph # [place] # Baso # Seg Neutrophils % Seg Neuts % (Manual) Lymphocytes % (Manual) Monocytes % (Manual) Eosinophils % (Manual) Basophils % (Manual) Nucleated RBC % Seg Neutrophils # Seg Neutrophils # Man Lymphocytes # (Manual) Monocytes # (Manual) Eosinophils # (Manual) PT INR Fibrinogen dRVVT Confirm Interp Factor V Activity POC ABG pH POC ABG pCO2 POC ABG pO2 ABG pO2 ABG HCO3 ABG Base Excess ABG Hemoglobin Oxyhemoglobin Sodium 131 L Potassium Chloride 94.0 L Carbon Dioxide 20 L BUN 22 H Creatinine 2.0 H Glucose 123 H POC Glucose 166 H 179 H Lactic Acid Calcium 7.7 L Phosphorus 2.20 L D Magnesium Direct Bilirubin AST ALT Alkaline Phosphatase Lactate Dehydrogenase Troponin T C-Reactive Protein Total Protein Albumin Prealbumin Triglycerides Cholesterol LDL Cholesterol Direct HDL Cholesterol Urine pH Urine WBC (Auto) Urine Creatinine Urine Total Protein Fluid Total Protein Vancomycin Trough Rheumatoid Factor Complement C4 Miscellaneous Test Crossmatch 08/16/17 08/16/17 08/16/17 15:50 18:53 23:12 WBC RBC Hgb Hct MCV MCH MCHC RDW Plt Count Lymph % (Auto) [place] % (Auto) Lymph # [place] # Baso # Seg Neutrophils % Seg Neuts % (Manual) Lymphocytes % (Manual) Monocytes % (Manual) Eosinophils % (Manual) Basophils % (Manual) Nucleated RBC % Seg Neutrophils # Seg Neutrophils # Man Lymphocytes # (Manual) Monocytes # (Manual) Eosinophils # (Manual) PT INR Fibrinogen dRVVT Confirm Interp Factor V Activity POC ABG pH POC ABG pCO2 POC ABG pO2 ABG pO2 ABG HCO3 ABG Base Excess ABG Hemoglobin Oxyhemoglobin Sodium Potassium Chloride Carbon Dioxide BUN Creatinine Glucose POC Glucose 150 H 164 H Lactic Acid Calcium Phosphorus Magnesium Direct Bilirubin AST ALT Alkaline Phosphatase Lactate Dehydrogenase Troponin T C-Reactive Protein Total Protein Albumin Prealbumin Triglycerides Cholesterol LDL Cholesterol Direct HDL Cholesterol Urine pH Urine WBC (Auto) Urine Creatinine Urine Total Protein Fluid Total Protein Vancomycin Trough Rheumatoid Factor Complement C4 Miscellaneous Test Crossmatch See Detail 10/06/16 10/06/16 10/06/16 03:50 03:50 04:53 WBC RBC 3.00 L Hgb 8.6 L Hct 25.8 L MCV MCH MCHC RDW 17.9 H Plt Count 65 L Lymph % (Auto) [place] % (Auto) Lymph # [place] # Baso # Seg Neutrophils % Seg Neuts % (Manual) 30.0 L Lymphocytes % (Manual) 5.0 L Monocytes % (Manual) Eosinophils % (Manual) Basophils % (Manual) Nucleated RBC % Seg Neutrophils # Seg Neutrophils # Man Lymphocytes # (Manual) 0.4 L Monocytes # (Manual) Eosinophils # (Manual) PT INR Fibrinogen dRVVT Confirm Interp Factor V Activity POC ABG pH 7.310 L POC ABG pCO2 49.0 H POC ABG pO2 ABG pO2 ABG HCO3 ABG Base Excess ABG Hemoglobin Oxyhemoglobin Sodium 133 L Potassium Chloride 95.9 L Carbon Dioxide BUN 26 H Creatinine 2.0 H Glucose 116 H POC Glucose Lactic Acid Calcium 7.8 L Phosphorus Magnesium Direct Bilirubin AST ALT Alkaline Phosphatase Lactate Dehydrogenase Troponin T C-Reactive Protein Total Protein Albumin Prealbumin Triglycerides Cholesterol LDL Cholesterol Direct HDL Cholesterol Urine pH Urine WBC (Auto) Urine Creatinine Urine Total Protein Fluid Total Protein Vancomycin Trough Rheumatoid Factor Complement C4 Miscellaneous Test Crossmatch 10/06/16 10/06/16 10/06/16 05:23 11:52 18:34 WBC RBC Hgb Hct MCV MCH MCHC RDW Plt Count Lymph % (Auto) [place] % (Auto) Lymph # [place] # Baso # Seg Neutrophils % Seg Neuts % (Manual) Lymphocytes % (Manual) Monocytes % (Manual) Eosinophils % (Manual) Basophils % (Manual) Nucleated RBC % Seg Neutrophils # Seg Neutrophils # Man Lymphocytes # (Manual) Monocytes # (Manual) Eosinophils # (Manual) PT INR Fibrinogen dRVVT Confirm Interp Factor V Activity POC ABG pH POC ABG pCO2 POC ABG pO2 ABG pO2 ABG HCO3 ABG Base Excess ABG Hemoglobin Oxyhemoglobin Sodium Potassium Chloride Carbon Dioxide BUN Creatinine Glucose POC Glucose 126 H 116 H 129 H Lactic Acid Calcium Phosphorus Magnesium Direct Bilirubin AST ALT Alkaline Phosphatase Lactate Dehydrogenase Troponin T C-Reactive Protein Total Protein Albumin Prealbumin Triglycerides Cholesterol LDL Cholesterol Direct HDL Cholesterol Urine pH Urine WBC (Auto) Urine Creatinine Urine Total Protein Fluid Total Protein Vancomycin Trough Rheumatoid Factor Complement C4 Miscellaneous Test Crossmatch 10/07/16 10/07/16 10/07/16 03:45 05:00 10:00 WBC 17.0 H RBC 2.68 L Hgb 7.3 L Hct 25.3 L MCV MCH 27 L MCHC 29 L RDW 19.6 H Plt Count 74 L Lymph % (Auto) [place] % (Auto) Lymph # [place] # Baso # Seg Neutrophils % Seg Neuts % (Manual) Lymphocytes % (Manual) 12.0 L Monocytes % (Manual) Eosinophils % (Manual) Basophils % (Manual) Nucleated RBC % 4.0 H Seg Neutrophils # Seg Neutrophils # Man 10.7 H Lymphocytes # (Manual) Monocytes # (Manual) Eosinophils # (Manual) PT INR Fibrinogen dRVVT Confirm Interp Factor V Activity POC ABG pH POC ABG pCO2 POC ABG pO2 ABG pO2 ABG HCO3 ABG Base Excess ABG Hemoglobin Oxyhemoglobin Sodium 130 L Potassium 3.2 L Chloride 93.9 L Carbon Dioxide 20 L BUN 44 H Creatinine 2.7 H Glucose 129 H POC Glucose Lactic Acid Calcium 7.4 L Phosphorus Magnesium Direct Bilirubin AST ALT 6 L Alkaline Phosphatase 195 H Lactate Dehydrogenase Troponin T C-Reactive Protein Total Protein 4.9 L Albumin 1.0 L Prealbumin Triglycerides Cholesterol LDL Cholesterol Direct HDL Cholesterol Urine pH Urine WBC (Auto) Urine Creatinine Urine Total Protein Fluid Total Protein Vancomycin Trough Rheumatoid Factor Complement C4 Miscellaneous Test Flexitest 1 H Crossmatch 10/07/16 10/07/16 10/07/16 10:00 11:24 18:10 WBC RBC Hgb Hct MCV MCH MCHC RDW Plt Count Lymph % (Auto) [place] % (Auto) Lymph # [place] # Baso # Seg Neutrophils % Seg Neuts % (Manual) Lymphocytes % (Manual) Monocytes % (Manual) Eosinophils % (Manual) Basophils % (Manual) Nucleated RBC % Seg Neutrophils # Seg Neutrophils # Man Lymphocytes # (Manual) Monocytes # (Manual) Eosinophils # (Manual) PT INR Fibrinogen dRVVT Confirm Interp Factor V Activity POC ABG pH POC ABG pCO2 POC ABG pO2 ABG pO2 ABG HCO3 ABG Base Excess ABG Hemoglobin Oxyhemoglobin Sodium Potassium Chloride Carbon Dioxide BUN Creatinine Glucose POC Glucose 116 H 130 H Lactic Acid Calcium Phosphorus Magnesium Direct Bilirubin AST ALT Alkaline Phosphatase Lactate Dehydrogenase Troponin T C-Reactive Protein 19.40 H Total Protein Albumin Prealbumin Triglycerides Cholesterol LDL Cholesterol Direct HDL Cholesterol Urine pH Urine WBC (Auto) Urine Creatinine Urine Total Protein Fluid Total Protein Vancomycin Trough Rheumatoid Factor Complement C4 Miscellaneous Test Crossmatch 10/07/16 10/08/16 10/08/16 18:30 00:00 04:00 WBC RBC Hgb Hct MCV MCH MCHC RDW Plt Count Lymph % (Auto) [place] % (Auto) Lymph # [place] # Baso # Seg Neutrophils % Seg Neuts % (Manual) Lymphocytes % (Manual) Monocytes % (Manual) Eosinophils % (Manual) Basophils % (Manual) Nucleated RBC % Seg Neutrophils # Seg Neutrophils # Man Lymphocytes # (Manual) Monocytes # (Manual) Eosinophils # (Manual) PT INR Fibrinogen dRVVT Confirm Interp Factor V Activity POC ABG pH POC ABG pCO2 POC ABG pO2 ABG pO2 ABG HCO3 ABG Base Excess ABG Hemoglobin Oxyhemoglobin Sodium 132 L Potassium 3.3 L Chloride 93.6 L Carbon Dioxide 17 L BUN 59 H Creatinine 2.7 H Glucose 121 H POC Glucose 122 H Lactic Acid Calcium 7.6 L Phosphorus Magnesium Direct Bilirubin AST ALT Alkaline Phosphatase Lactate Dehydrogenase Troponin T C-Reactive Protein Total Protein Albumin Prealbumin Triglycerides Cholesterol LDL Cholesterol Direct HDL Cholesterol Urine pH Urine WBC (Auto) > 182.0 H Urine Creatinine Urine Total Protein Fluid Total Protein Vancomycin Trough Rheumatoid Factor Complement C4 Miscellaneous Test Crossmatch 10/08/16 10/08/16 10/08/16 04:30 05:30 11:51 WBC RBC 5.15 H Hgb 14.4 H D Hct 44.5 H D MCV MCH MCHC RDW 19.5 H Plt Count 56 L Lymph % (Auto) [place] % (Auto) Lymph # [place] # Baso # Seg Neutrophils % Seg Neuts % (Manual) 24.0 L Lymphocytes % (Manual) 8.0 L Monocytes % (Manual) Eosinophils % (Manual) Basophils % (Manual) Nucleated RBC % 9.0 H Seg Neutrophils # Seg Neutrophils # Man Lymphocytes # (Manual) 0.7 L Monocytes # (Manual) Eosinophils # (Manual) PT INR Fibrinogen dRVVT Confirm Interp Factor V Activity POC ABG pH POC ABG pCO2 POC ABG pO2 ABG pO2 ABG HCO3 ABG Base Excess ABG Hemoglobin Oxyhemoglobin Sodium Potassium Chloride Carbon Dioxide BUN Creatinine Glucose POC Glucose 125 H 150 H Lactic Acid Calcium Phosphorus Magnesium Direct Bilirubin AST ALT Alkaline Phosphatase Lactate Dehydrogenase Troponin T C-Reactive Protein Total Protein Albumin Prealbumin Triglycerides Cholesterol LDL Cholesterol Direct HDL Cholesterol Urine pH Urine WBC (Auto) Urine Creatinine Urine Total Protein Fluid Total Protein Vancomycin Trough Rheumatoid Factor Complement C4 Miscellaneous Test Crossmatch 10/08/16 10/08/16 10/08/16 12:49 17:07 19:30 WBC RBC Hgb 7.1 L D Hct 22.4 L D MCV MCH MCHC RDW Plt Count Lymph % (Auto) [place] % (Auto) Lymph # [place] # Baso # Seg Neutrophils % Seg Neuts % (Manual) Lymphocytes % (Manual) Monocytes % (Manual) Eosinophils % (Manual) Basophils % (Manual) Nucleated RBC % Seg Neutrophils # Seg Neutrophils # Man Lymphocytes # (Manual) Monocytes # (Manual) Eosinophils # (Manual) PT INR Fibrinogen dRVVT Confirm Interp Factor V Activity POC ABG pH POC ABG pCO2 28.2 L POC ABG pO2 111 H ABG pO2 ABG HCO3 ABG Base Excess ABG Hemoglobin Oxyhemoglobin Sodium Potassium Chloride Carbon Dioxide BUN Creatinine Glucose POC Glucose 145 H Lactic Acid Calcium Phosphorus Magnesium Direct Bilirubin AST ALT Alkaline Phosphatase Lactate Dehydrogenase Troponin T C-Reactive Protein Total Protein Albumin Prealbumin Triglycerides Cholesterol LDL Cholesterol Direct HDL Cholesterol Urine pH Urine WBC (Auto) Urine Creatinine Urine Total Protein Fluid Total Protein Vancomycin Trough Rheumatoid Factor Complement C4 Miscellaneous Test Crossmatch 10/08/16 10/09/16 10/09/16 19:30 03:45 03:45 WBC 12.6 H RBC 2.36 L Hgb 6.7 L Hct 21.1 L MCV MCH MCHC RDW 19.5 H Plt Count 75 L Lymph % (Auto) [place] % (Auto) Lymph # [place] # Baso # Seg Neutrophils % Seg Neuts % (Manual) Lymphocytes % (Manual) Monocytes % (Manual) 10.0 H Eosinophils % (Manual) Basophils % (Manual) Nucleated RBC % 3.0 H Seg Neutrophils # Seg Neutrophils # Man Lymphocytes # (Manual) Monocytes # (Manual) 1.3 H Eosinophils # (Manual) PT 18.0 H INR 1.41 H Fibrinogen dRVVT Confirm Interp Factor V Activity POC ABG pH POC ABG pCO2 POC ABG pO2 ABG pO2 ABG HCO3 ABG Base Excess ABG Hemoglobin Oxyhemoglobin Sodium 135 L Potassium Chloride Carbon Dioxide 17 L BUN 81 H Creatinine 3.2 H Glucose 109 H POC Glucose Lactic Acid Calcium 7.4 L Phosphorus 4.60 H D Magnesium Direct Bilirubin AST ALT Alkaline Phosphatase Lactate Dehydrogenase Troponin T C-Reactive Protein Total Protein Albumin Prealbumin Triglycerides Cholesterol LDL Cholesterol Direct HDL Cholesterol Urine pH Urine WBC (Auto) Urine Creatinine Urine Total Protein Fluid Total Protein Vancomycin Trough Rheumatoid Factor Complement C4 Miscellaneous Test Crossmatch 10/09/16 10/09/16 10/09/16 03:45 05:14 07:20 WBC RBC Hgb Hct MCV MCH MCHC RDW Plt Count Lymph % (Auto) [place] % (Auto) Lymph # [place] # Baso # Seg Neutrophils % Seg Neuts % (Manual) Lymphocytes % (Manual) Monocytes % (Manual) Eosinophils % (Manual) Basophils % (Manual) Nucleated RBC % Seg Neutrophils # Seg Neutrophils # Man Lymphocytes # (Manual) Monocytes # (Manual) Eosinophils # (Manual) PT 19.0 H INR 1.51 H Fibrinogen dRVVT Confirm Interp Factor V Activity POC ABG pH POC ABG pCO2 POC ABG pO2 ABG pO2 ABG HCO3 ABG Base Excess ABG Hemoglobin Oxyhemoglobin Sodium Potassium Chloride Carbon Dioxide BUN Creatinine Glucose POC Glucose 151 H Lactic Acid Calcium Phosphorus Magnesium Direct Bilirubin AST ALT Alkaline Phosphatase Lactate Dehydrogenase Troponin T C-Reactive Protein Total Protein Albumin Prealbumin Triglycerides Cholesterol LDL Cholesterol Direct HDL Cholesterol Urine pH Urine WBC (Auto) Urine Creatinine Urine Total Protein Fluid Total Protein Vancomycin Trough Rheumatoid Factor Complement C4 Miscellaneous Test Crossmatch See Detail 10/09/16 10/09/16 10/09/16 11:46 16:20 16:43 WBC RBC Hgb 7.2 L Hct 22.2 L MCV MCH MCHC RDW Plt Count Lymph % (Auto) [place] % (Auto) Lymph # [place] # Baso # Seg Neutrophils % Seg Neuts % (Manual) Lymphocytes % (Manual) Monocytes % (Manual) Eosinophils % (Manual) Basophils % (Manual) Nucleated RBC % Seg Neutrophils # Seg Neutrophils # Man Lymphocytes # (Manual) Monocytes # (Manual) Eosinophils # (Manual) PT INR Fibrinogen dRVVT Confirm Interp Factor V Activity POC ABG pH POC ABG pCO2 POC ABG pO2 ABG pO2 ABG HCO3 ABG Base Excess ABG Hemoglobin Oxyhemoglobin Sodium Potassium Chloride Carbon Dioxide BUN Creatinine Glucose POC Glucose 133 H 141 H Lactic Acid Calcium Phosphorus Magnesium Direct Bilirubin AST ALT Alkaline Phosphatase Lactate Dehydrogenase Troponin T C-Reactive Protein Total Protein Albumin Prealbumin Triglycerides Cholesterol LDL Cholesterol Direct HDL Cholesterol Urine pH Urine WBC (Auto) Urine Creatinine Urine Total Protein Fluid Total Protein Vancomycin Trough Rheumatoid Factor Complement C4 Miscellaneous Test Crossmatch 10/10/16 10/10/16 10/10/16 05:00 05:00 11:19 WBC 18.5 H RBC 2.19 L Hgb 6.4 L Hct 19.6 L* MCV MCH MCHC RDW 19.3 H Plt Count 93 L Lymph % (Auto) [place] % (Auto) Lymph # [place] # Baso # Seg Neutrophils % Seg Neuts % (Manual) Lymphocytes % (Manual) 10.0 L Monocytes % (Manual) Eosinophils % (Manual) Basophils % (Manual) Nucleated RBC % 4.0 H Seg Neutrophils # Seg Neutrophils # Man 11.3 H Lymphocytes # (Manual) Monocytes # (Manual) Eosinophils # (Manual) PT INR Fibrinogen dRVVT Confirm Interp Factor V Activity POC ABG pH POC ABG pCO2 POC ABG pO2 ABG pO2 ABG HCO3 ABG Base Excess ABG Hemoglobin Oxyhemoglobin Sodium Potassium 5.7 H D Chloride Carbon Dioxide 16 L BUN 94 H Creatinine 3.1 H Glucose 131 H POC Glucose 153 H Lactic Acid Calcium 8.2 L Phosphorus 5.10 H Magnesium 2.40 H Direct Bilirubin 0.3 H AST ALT < 5 L Alkaline Phosphatase 319 H Lactate Dehydrogenase Troponin T C-Reactive Protein Total Protein 5.1 L Albumin 1.0 L Prealbumin Triglycerides Cholesterol LDL Cholesterol Direct HDL Cholesterol Urine pH Urine WBC (Auto) Urine Creatinine Urine Total Protein Fluid Total Protein Vancomycin Trough Rheumatoid Factor Complement C4 Miscellaneous Test Crossmatch 10/10/16 10/10/16 10/11/16 17:50 23:30 04:15 WBC RBC Hgb Hct MCV MCH MCHC RDW Plt Count Lymph % (Auto) [place] % (Auto) Lymph # [place] # Baso # Seg Neutrophils % Seg Neuts % (Manual) Lymphocytes % (Manual) Monocytes % (Manual) Eosinophils % (Manual) Basophils % (Manual) Nucleated RBC % Seg Neutrophils # Seg Neutrophils # Man Lymphocytes # (Manual) Monocytes # (Manual) Eosinophils # (Manual) PT INR Fibrinogen dRVVT Confirm Interp Factor V Activity POC ABG pH POC ABG pCO2 POC ABG pO2 ABG pO2 ABG HCO3 ABG Base Excess ABG Hemoglobin Oxyhemoglobin Sodium Potassium Chloride 96.4 L Carbon Dioxide 21 L BUN 57 H Creatinine 2.1 H Glucose 151 H POC Glucose 146 H 141 H Lactic Acid Calcium 8.3 L Phosphorus Magnesium Direct Bilirubin AST ALT Alkaline Phosphatase Lactate Dehydrogenase Troponin T C-Reactive Protein Total Protein Albumin Prealbumin Triglycerides Cholesterol LDL Cholesterol Direct HDL Cholesterol Urine pH Urine WBC (Auto) Urine Creatinine Urine Total Protein Fluid Total Protein Vancomycin Trough Rheumatoid Factor Complement C4 Miscellaneous Test Crossmatch 10/11/16 10/11/16 10/11/16 04:15 04:15 05:30 WBC 28.3 H RBC 3.12 L Hgb 9.3 L Hct 28.7 L D MCV MCH MCHC RDW 17.7 H Plt Count 128 L Lymph % (Auto) [place] % (Auto) Lymph # [place] # Baso # Seg Neutrophils % Seg Neuts % (Manual) Lymphocytes % (Manual) Monocytes % (Manual) Eosinophils % (Manual) Basophils % (Manual) Nucleated RBC % Seg Neutrophils # Seg Neutrophils # Man Lymphocytes # (Manual) Monocytes # (Manual) Eosinophils # (Manual) PT INR Fibrinogen dRVVT Confirm Interp Factor V Activity POC ABG pH POC ABG pCO2 POC ABG pO2 ABG pO2 ABG HCO3 ABG Base Excess ABG Hemoglobin Oxyhemoglobin Sodium Potassium Chloride Carbon Dioxide BUN Creatinine Glucose POC Glucose 167 H Lactic Acid Calcium Phosphorus Magnesium Direct Bilirubin AST ALT Alkaline Phosphatase Lactate Dehydrogenase Troponin T C-Reactive Protein 15.80 H Total Protein Albumin Prealbumin Triglycerides Cholesterol LDL Cholesterol Direct HDL Cholesterol Urine pH Urine WBC (Auto) Urine Creatinine Urine Total Protein Fluid Total Protein Vancomycin Trough Rheumatoid Factor Complement C4 Miscellaneous Test Crossmatch 10/11/16 10/11/16 10/11/16 11:40 15:49 23:57 WBC RBC Hgb Hct MCV MCH MCHC RDW Plt Count Lymph % (Auto) [place] % (Auto) Lymph # [place] # Baso # Seg Neutrophils % Seg Neuts % (Manual) Lymphocytes % (Manual) Monocytes % (Manual) Eosinophils % (Manual) Basophils % (Manual) Nucleated RBC % Seg Neutrophils # Seg Neutrophils # Man Lymphocytes # (Manual) Monocytes # (Manual) Eosinophils # (Manual) PT INR Fibrinogen dRVVT Confirm Interp Factor V Activity POC ABG pH POC ABG pCO2 POC ABG pO2 ABG pO2 ABG HCO3 ABG Base Excess ABG Hemoglobin Oxyhemoglobin Sodium Potassium Chloride Carbon Dioxide BUN Creatinine Glucose POC Glucose 139 H 168 H 161 H Lactic Acid Calcium Phosphorus Magnesium Direct Bilirubin AST ALT Alkaline Phosphatase Lactate Dehydrogenase Troponin T C-Reactive Protein Total Protein Albumin Prealbumin Triglycerides Cholesterol LDL Cholesterol Direct HDL Cholesterol Urine pH Urine WBC (Auto) Urine Creatinine Urine Total Protein Fluid Total Protein Vancomycin Trough Rheumatoid Factor Complement C4 Miscellaneous Test Crossmatch 10/12/16 10/12/16 10/12/16 04:40 04:40 05:44 WBC 22.5 H RBC 2.88 L Hgb 8.8 L Hct 26.8 L MCV MCH MCHC RDW 17.8 H Plt Count Lymph % (Auto) [place] % (Auto) Lymph # [place] # Baso # Seg Neutrophils % Seg Neuts % (Manual) Lymphocytes % (Manual) Monocytes % (Manual) Eosinophils % (Manual) Basophils % (Manual) Nucleated RBC % Seg Neutrophils # Seg Neutrophils # Man Lymphocytes # (Manual) Monocytes # (Manual) Eosinophils # (Manual) PT INR Fibrinogen dRVVT Confirm Interp Factor V Activity POC ABG pH POC ABG pCO2 POC ABG pO2 ABG pO2 ABG HCO3 ABG Base Excess ABG Hemoglobin Oxyhemoglobin Sodium 134 L Potassium Chloride 93.0 L Carbon Dioxide BUN 74 H Creatinine 2.5 H Glucose 137 H POC Glucose 158 H Lactic Acid Calcium 8.2 L Phosphorus Magnesium Direct Bilirubin AST ALT Alkaline Phosphatase Lactate Dehydrogenase Troponin T C-Reactive Protein Total Protein Albumin Prealbumin Triglycerides Cholesterol LDL Cholesterol Direct HDL Cholesterol Urine pH Urine WBC (Auto) Urine Creatinine Urine Total Protein Fluid Total Protein Vancomycin Trough Rheumatoid Factor Complement C4 Miscellaneous Test Crossmatch 10/12/16 10/12/16 10/12/16 12:27 18:18 23:46 WBC RBC Hgb Hct MCV MCH MCHC RDW Plt Count Lymph % (Auto) [place] % (Auto) Lymph # [place] # Baso # Seg Neutrophils % Seg Neuts % (Manual) Lymphocytes % (Manual) Monocytes % (Manual) Eosinophils % (Manual) Basophils % (Manual) Nucleated RBC % Seg Neutrophils # Seg Neutrophils # Man Lymphocytes # (Manual) Monocytes # (Manual) Eosinophils # (Manual) PT INR Fibrinogen dRVVT Confirm Interp Factor V Activity POC ABG pH POC ABG pCO2 POC ABG pO2 ABG pO2 ABG HCO3 ABG Base Excess ABG Hemoglobin Oxyhemoglobin Sodium Potassium Chloride Carbon Dioxide BUN Creatinine Glucose POC Glucose 153 H 140 H 150 H Lactic Acid Calcium Phosphorus Magnesium Direct Bilirubin AST ALT Alkaline Phosphatase Lactate Dehydrogenase Troponin T C-Reactive Protein Total Protein Albumin Prealbumin Triglycerides Cholesterol LDL Cholesterol Direct HDL Cholesterol Urine pH Urine WBC (Auto) Urine Creatinine Urine Total Protein Fluid Total Protein Vancomycin Trough Rheumatoid Factor Complement C4 Miscellaneous Test Crossmatch 10/13/16 10/13/16 10/13/16 06:22 09:20 12:29 WBC RBC Hgb Hct MCV MCH MCHC RDW Plt Count Lymph % (Auto) [place] % (Auto) Lymph # [place] # Baso # Seg Neutrophils % Seg Neuts % (Manual) Lymphocytes % (Manual) Monocytes % (Manual) Eosinophils % (Manual) Basophils % (Manual) Nucleated RBC % Seg Neutrophils # Seg Neutrophils # Man Lymphocytes # (Manual) Monocytes # (Manual) Eosinophils # (Manual) PT INR Fibrinogen dRVVT Confirm Interp Factor V Activity POC ABG pH POC ABG pCO2 POC ABG pO2 ABG pO2 ABG HCO3 ABG Base Excess ABG Hemoglobin Oxyhemoglobin Sodium Potassium Chloride Carbon Dioxide BUN Creatinine Glucose POC Glucose 165 H 193 H Lactic Acid Calcium Phosphorus Magnesium Direct Bilirubin AST ALT Alkaline Phosphatase Lactate Dehydrogenase Troponin T C-Reactive Protein Total Protein Albumin Prealbumin Triglycerides Cholesterol LDL Cholesterol Direct HDL Cholesterol Urine pH Urine WBC (Auto) Urine Creatinine Urine Total Protein Fluid Total Protein Vancomycin Trough Rheumatoid Factor Complement C4 Miscellaneous Test Flexitest 1 H Crossmatch 10/13/16 10/13/16 10/13/16 18:09 Unknown Unknown WBC 23.4 H RBC 2.83 L Hgb 8.7 L Hct 26.1 L MCV MCH MCHC RDW 18.1 H Plt Count Lymph % (Auto) [place] % (Auto) Lymph # [place] # Baso # Seg Neutrophils % Seg Neuts % (Manual) Lymphocytes % (Manual) Monocytes % (Manual) Eosinophils % (Manual) Basophils % (Manual) Nucleated RBC % Seg Neutrophils # Seg Neutrophils # Man Lymphocytes # (Manual) Monocytes # (Manual) Eosinophils # (Manual) PT INR Fibrinogen dRVVT Confirm Interp Factor V Activity POC ABG pH POC ABG pCO2 POC ABG pO2 ABG pO2 ABG HCO3 ABG Base Excess ABG Hemoglobin Oxyhemoglobin Sodium Potassium Chloride 95.8 L Carbon Dioxide BUN 82 H Creatinine 2.6 H Glucose 152 H POC Glucose 166 H Lactic Acid Calcium Phosphorus Magnesium Direct Bilirubin AST ALT Alkaline Phosphatase Lactate Dehydrogenase Troponin T C-Reactive Protein Total Protein Albumin Prealbumin Triglycerides Cholesterol LDL Cholesterol Direct HDL Cholesterol Urine pH Urine WBC (Auto) Urine Creatinine Urine Total Protein Fluid Total Protein Vancomycin Trough Rheumatoid Factor Complement C4 Miscellaneous Test Crossmatch 10/14/16 10/14/16 10/14/16 05:38 06:35 08:10 WBC 20.7 H RBC 2.81 L Hgb 8.4 L Hct 27.2 L MCV MCH MCHC RDW 19.4 H Plt Count Lymph % (Auto) [place] % (Auto) Lymph # [place] # Baso # Seg Neutrophils % Seg Neuts % (Manual) Lymphocytes % (Manual) Monocytes % (Manual) Eosinophils % (Manual) Basophils % (Manual) Nucleated RBC % Seg Neutrophils # Seg Neutrophils # Man Lymphocytes # (Manual) Monocytes # (Manual) Eosinophils # (Manual) PT INR Fibrinogen dRVVT Confirm Interp Factor V Activity POC ABG pH POC ABG pCO2 POC ABG pO2 ABG pO2 ABG HCO3 ABG Base Excess ABG Hemoglobin Oxyhemoglobin Sodium Potassium Chloride Carbon Dioxide BUN 58 H Creatinine 1.9 H Glucose 169 H POC Glucose 195 H Lactic Acid Calcium Phosphorus Magnesium Direct Bilirubin AST ALT Alkaline Phosphatase Lactate Dehydrogenase Troponin T C-Reactive Protein Total Protein Albumin Prealbumin Triglycerides Cholesterol LDL Cholesterol Direct HDL Cholesterol Urine pH Urine WBC (Auto) Urine Creatinine Urine Total Protein Fluid Total Protein Vancomycin Trough Rheumatoid Factor Complement C4 Miscellaneous Test Crossmatch 10/14/16 10/14/16 10/14/16 11:44 17:13 23:28 WBC RBC Hgb Hct MCV MCH MCHC RDW Plt Count Lymph % (Auto) [place] % (Auto) Lymph # [place] # Baso # Seg Neutrophils % Seg Neuts % (Manual) Lymphocytes % (Manual) Monocytes % (Manual) Eosinophils % (Manual) Basophils % (Manual) Nucleated RBC % Seg Neutrophils # Seg Neutrophils # Man Lymphocytes # (Manual) Monocytes # (Manual) Eosinophils # (Manual) PT INR Fibrinogen dRVVT Confirm Interp Factor V Activity POC ABG pH POC ABG pCO2 POC ABG pO2 ABG pO2 ABG HCO3 ABG Base Excess ABG Hemoglobin Oxyhemoglobin Sodium Potassium Chloride Carbon Dioxide BUN Creatinine Glucose POC Glucose 174 H 121 H 151 H Lactic Acid Calcium Phosphorus Magnesium Direct Bilirubin AST ALT Alkaline Phosphatase Lactate Dehydrogenase Troponin T C-Reactive Protein Total Protein Albumin Prealbumin Triglycerides Cholesterol LDL Cholesterol Direct HDL Cholesterol Urine pH Urine WBC (Auto) Urine Creatinine Urine Total Protein Fluid Total Protein Vancomycin Trough Rheumatoid Factor Complement C4 Miscellaneous Test Crossmatch 10/15/16 10/15/16 10/15/16 05:06 12:26 17:48 WBC RBC Hgb Hct MCV MCH MCHC RDW Plt Count Lymph % (Auto) [place] % (Auto) Lymph # [place] # Baso # Seg Neutrophils % Seg Neuts % (Manual) Lymphocytes % (Manual) Monocytes % (Manual) Eosinophils % (Manual) Basophils % (Manual) Nucleated RBC % Seg Neutrophils # Seg Neutrophils # Man Lymphocytes # (Manual) Monocytes # (Manual) Eosinophils # (Manual) PT INR Fibrinogen dRVVT Confirm Interp Factor V Activity POC ABG pH POC ABG pCO2 POC ABG pO2 ABG pO2 ABG HCO3 ABG Base Excess ABG Hemoglobin Oxyhemoglobin Sodium Potassium Chloride Carbon Dioxide BUN Creatinine Glucose POC Glucose 151 H 149 H 153 H Lactic Acid Calcium Phosphorus Magnesium Direct Bilirubin AST ALT Alkaline Phosphatase Lactate Dehydrogenase Troponin T C-Reactive Protein Total Protein Albumin Prealbumin Triglycerides Cholesterol LDL Cholesterol Direct HDL Cholesterol Urine pH Urine WBC (Auto) Urine Creatinine Urine Total Protein Fluid Total Protein Vancomycin Trough Rheumatoid Factor Complement C4 Miscellaneous Test Crossmatch 10/15/16 10/15/16 10/16/16 Unknown Unknown 00:02 WBC 23.4 H RBC 2.78 L Hgb 8.5 L Hct 25.7 L MCV MCH MCHC RDW 18.7 H Plt Count Lymph % (Auto) [place] % (Auto) Lymph # [place] # Baso # Seg Neutrophils % Seg Neuts % (Manual) Lymphocytes % (Manual) Monocytes % (Manual) Eosinophils % (Manual) Basophils % (Manual) Nucleated RBC % Seg Neutrophils # Seg Neutrophils # Man Lymphocytes # (Manual) Monocytes # (Manual) Eosinophils # (Manual) PT INR Fibrinogen dRVVT Confirm Interp Factor V Activity POC ABG pH POC ABG pCO2 POC ABG pO2 ABG pO2 ABG HCO3 ABG Base Excess ABG Hemoglobin Oxyhemoglobin Sodium Potassium Chloride Carbon Dioxide BUN 73 H Creatinine 2.3 H Glucose 120 H POC Glucose 137 H Lactic Acid Calcium Phosphorus Magnesium Direct Bilirubin AST ALT Alkaline Phosphatase Lactate Dehydrogenase Troponin T C-Reactive Protein Total Protein Albumin Prealbumin Triglycerides Cholesterol LDL Cholesterol Direct HDL Cholesterol Urine pH Urine WBC (Auto) Urine Creatinine Urine Total Protein Fluid Total Protein Vancomycin Trough Rheumatoid Factor Complement C4 Miscellaneous Test Crossmatch 10/16/16 10/16/16 10/16/16 05:44 06:25 06:25 WBC 22.5 H RBC 2.76 L Hgb 8.3 L Hct 25.2 L MCV MCH MCHC RDW 18.3 H Plt Count Lymph % (Auto) [place] % (Auto) Lymph # [place] # Baso # Seg Neutrophils % Seg Neuts % (Manual) Lymphocytes % (Manual) Monocytes % (Manual) Eosinophils % (Manual) Basophils % (Manual) Nucleated RBC % Seg Neutrophils # Seg Neutrophils # Man Lymphocytes # (Manual) Monocytes # (Manual) Eosinophils # (Manual) PT INR Fibrinogen dRVVT Confirm Interp Factor V Activity POC ABG pH POC ABG pCO2 POC ABG pO2 ABG pO2 ABG HCO3 ABG Base Excess ABG Hemoglobin Oxyhemoglobin Sodium Potassium Chloride Carbon Dioxide BUN 92 H Creatinine 3.0 H Glucose 138 H POC Glucose 110 H Lactic Acid Calcium Phosphorus Magnesium Direct Bilirubin AST ALT Alkaline Phosphatase Lactate Dehydrogenase Troponin T C-Reactive Protein Total Protein Albumin Prealbumin Triglycerides Cholesterol LDL Cholesterol Direct HDL Cholesterol Urine pH Urine WBC (Auto) Urine Creatinine Urine Total Protein Fluid Total Protein Vancomycin Trough Rheumatoid Factor Complement C4 Miscellaneous Test Crossmatch 10/16/16 10/16/16 10/16/16 11:27 11:48 17:36 WBC RBC Hgb Hct MCV MCH MCHC RDW Plt Count Lymph % (Auto) [place] % (Auto) Lymph # [place] # Baso # Seg Neutrophils % Seg Neuts % (Manual) Lymphocytes % (Manual) Monocytes % (Manual) Eosinophils % (Manual) Basophils % (Manual) Nucleated RBC % Seg Neutrophils # Seg Neutrophils # Man Lymphocytes # (Manual) Monocytes # (Manual) Eosinophils # (Manual) PT INR Fibrinogen dRVVT Confirm Interp Factor V Activity POC ABG pH 7.582 H POC ABG pCO2 27.4 L POC ABG pO2 110 H ABG pO2 ABG HCO3 ABG Base Excess ABG Hemoglobin Oxyhemoglobin Sodium Potassium Chloride Carbon Dioxide BUN Creatinine Glucose POC Glucose 121 H 133 H Lactic Acid Calcium Phosphorus Magnesium Direct Bilirubin AST ALT Alkaline Phosphatase Lactate Dehydrogenase Troponin T C-Reactive Protein Total Protein Albumin Prealbumin Triglycerides Cholesterol LDL Cholesterol Direct HDL Cholesterol Urine pH Urine WBC (Auto) Urine Creatinine Urine Total Protein Fluid Total Protein Vancomycin Trough Rheumatoid Factor Complement C4 Miscellaneous Test Crossmatch 10/16/16 10/17/16 10/17/16 20:48 04:24 04:24 WBC 21.4 H RBC 2.72 L Hgb 8.0 L Hct 25.2 L MCV MCH MCHC RDW 18.0 H Plt Count Lymph % (Auto) [place] % (Auto) Lymph # [place] # Baso # Seg Neutrophils % Seg Neuts % (Manual) Lymphocytes % (Manual) Monocytes % (Manual) Eosinophils % (Manual) Basophils % (Manual) Nucleated RBC % Seg Neutrophils # Seg Neutrophils # Man Lymphocytes # (Manual) Monocytes # (Manual) Eosinophils # (Manual) PT INR Fibrinogen dRVVT Confirm Interp Factor V Activity POC ABG pH 7.561 H POC ABG pCO2 24.4 L POC ABG pO2 77 L ABG pO2 ABG HCO3 ABG Base Excess ABG Hemoglobin Oxyhemoglobin Sodium 148 H Potassium Chloride Carbon Dioxide BUN 104 H Creatinine 3.0 H Glucose 149 H POC Glucose Lactic Acid Calcium Phosphorus Magnesium Direct Bilirubin AST ALT Alkaline Phosphatase 138 H Lactate Dehydrogenase Troponin T C-Reactive Protein Total Protein 6.2 L Albumin 1.5 L Prealbumin Triglycerides Cholesterol LDL Cholesterol Direct HDL Cholesterol Urine pH Urine WBC (Auto) Urine Creatinine Urine Total Protein Fluid Total Protein Vancomycin Trough Rheumatoid Factor Complement C4 Miscellaneous Test Crossmatch 10/17/16 10/17/16 10/17/16 06:02 12:17 17:14 WBC RBC Hgb Hct MCV MCH MCHC RDW Plt Count Lymph % (Auto) [place] % (Auto) Lymph # [place] # Baso # Seg Neutrophils % Seg Neuts % (Manual) Lymphocytes % (Manual) Monocytes % (Manual) Eosinophils % (Manual) Basophils % (Manual) Nucleated RBC % Seg Neutrophils # Seg Neutrophils # Man Lymphocytes # (Manual) Monocytes # (Manual) Eosinophils # (Manual) PT INR Fibrinogen dRVVT Confirm Interp Factor V Activity POC ABG pH POC ABG pCO2 POC ABG pO2 ABG pO2 ABG HCO3 ABG Base Excess ABG Hemoglobin Oxyhemoglobin Sodium Potassium Chloride Carbon Dioxide BUN Creatinine Glucose POC Glucose 170 H 167 H 126 H Lactic Acid Calcium Phosphorus Magnesium Direct Bilirubin AST ALT Alkaline Phosphatase Lactate Dehydrogenase Troponin T C-Reactive Protein Total Protein Albumin Prealbumin Triglycerides Cholesterol LDL Cholesterol Direct HDL Cholesterol Urine pH Urine WBC (Auto) Urine Creatinine Urine Total Protein Fluid Total Protein Vancomycin Trough Rheumatoid Factor Complement C4 Miscellaneous Test Crossmatch 10/17/16 10/18/16 10/18/16 23:17 04:00 04:00 WBC 20.7 H RBC 2.47 L Hgb 7.4 L Hct 22.9 L MCV MCH MCHC RDW 17.5 H Plt Count Lymph % (Auto) [place] % (Auto) Lymph # [place] # Baso # Seg Neutrophils % Seg Neuts % (Manual) Lymphocytes % (Manual) Monocytes % (Manual) Eosinophils % (Manual) Basophils % (Manual) Nucleated RBC % Seg Neutrophils # Seg Neutrophils # Man Lymphocytes # (Manual) Monocytes # (Manual) Eosinophils # (Manual) PT INR Fibrinogen dRVVT Confirm Interp Factor V Activity POC ABG pH POC ABG pCO2 POC ABG pO2 ABG pO2 ABG HCO3 ABG Base Excess ABG Hemoglobin Oxyhemoglobin Sodium 149 H Potassium Chloride 107.9 H Carbon Dioxide 20 L BUN 117 H Creatinine 3.2 H Glucose 119 H POC Glucose 121 H Lactic Acid Calcium Phosphorus Magnesium Direct Bilirubin AST ALT Alkaline Phosphatase Lactate Dehydrogenase Troponin T C-Reactive Protein Total Protein Albumin Prealbumin Triglycerides Cholesterol LDL Cholesterol Direct HDL Cholesterol Urine pH Urine WBC (Auto) Urine Creatinine Urine Total Protein Fluid Total Protein Vancomycin Trough Rheumatoid Factor Complement C4 Miscellaneous Test Crossmatch 10/18/16 10/18/16 10/18/16 05:23 10:46 17:30 WBC RBC Hgb Hct MCV MCH MCHC RDW Plt Count Lymph % (Auto) [place] % (Auto) Lymph # [place] # Baso # Seg Neutrophils % Seg Neuts % (Manual) Lymphocytes % (Manual) Monocytes % (Manual) Eosinophils % (Manual) Basophils % (Manual) Nucleated RBC % Seg Neutrophils # Seg Neutrophils # Man Lymphocytes # (Manual) Monocytes # (Manual) Eosinophils # (Manual) PT INR Fibrinogen dRVVT Confirm Interp Factor V Activity POC ABG pH POC ABG pCO2 POC ABG pO2 ABG pO2 ABG HCO3 ABG Base Excess ABG Hemoglobin Oxyhemoglobin Sodium Potassium Chloride Carbon Dioxide BUN Creatinine Glucose POC Glucose 119 H 155 H 124 H Lactic Acid Calcium Phosphorus Magnesium Direct Bilirubin AST ALT Alkaline Phosphatase Lactate Dehydrogenase Troponin T C-Reactive Protein Total Protein Albumin Prealbumin Triglycerides Cholesterol LDL Cholesterol Direct HDL Cholesterol Urine pH Urine WBC (Auto) Urine Creatinine Urine Total Protein Fluid Total Protein Vancomycin Trough Rheumatoid Factor Complement C4 Miscellaneous Test Crossmatch 10/19/16 10/19/16 10/19/16 04:00 04:00 05:25 WBC 17.4 H RBC 2.54 L Hgb 7.7 L Hct 23.6 L MCV MCH MCHC RDW 17.3 H Plt Count Lymph % (Auto) [place] % (Auto) Lymph # [place] # Baso # Seg Neutrophils % Seg Neuts % (Manual) Lymphocytes % (Manual) Monocytes % (Manual) Eosinophils % (Manual) Basophils % (Manual) Nucleated RBC % Seg Neutrophils # Seg Neutrophils # Man Lymphocytes # (Manual) Monocytes # (Manual) Eosinophils # (Manual) PT INR Fibrinogen dRVVT Confirm Interp Factor V Activity POC ABG pH POC ABG pCO2 POC ABG pO2 ABG pO2 ABG HCO3 ABG Base Excess ABG Hemoglobin Oxyhemoglobin Sodium Potassium Chloride Carbon Dioxide BUN 72 H Creatinine 2.1 H Glucose 116 H POC Glucose 119 H Lactic Acid Calcium Phosphorus Magnesium Direct Bilirubin AST ALT Alkaline Phosphatase Lactate Dehydrogenase Troponin T C-Reactive Protein Total Protein Albumin Prealbumin Triglycerides Cholesterol LDL Cholesterol Direct HDL Cholesterol Urine pH Urine WBC (Auto) Urine Creatinine Urine Total Protein Fluid Total Protein Vancomycin Trough Rheumatoid Factor Complement C4 Miscellaneous Test Crossmatch 10/19/16 10/19/16 10/20/16 11:46 23:59 06:00 WBC RBC Hgb Hct MCV MCH MCHC RDW Plt Count Lymph % (Auto) [place] % (Auto) Lymph # [place] # Baso # Seg Neutrophils % Seg Neuts % (Manual) Lymphocytes % (Manual) Monocytes % (Manual) Eosinophils % (Manual) Basophils % (Manual) Nucleated RBC % Seg Neutrophils # Seg Neutrophils # Man Lymphocytes # (Manual) Monocytes # (Manual) Eosinophils # (Manual) PT INR Fibrinogen dRVVT Confirm Interp Factor V Activity POC ABG pH POC ABG pCO2 POC ABG pO2 ABG pO2 ABG HCO3 ABG Base Excess ABG Hemoglobin Oxyhemoglobin Sodium Potassium Chloride Carbon Dioxide 17 L BUN 94 H Creatinine 2.7 H Glucose POC Glucose 116 H 117 H Lactic Acid Calcium Phosphorus Magnesium Direct Bilirubin AST ALT Alkaline Phosphatase Lactate Dehydrogenase Troponin T C-Reactive Protein Total Protein Albumin Prealbumin Triglycerides Cholesterol LDL Cholesterol Direct HDL Cholesterol Urine pH Urine WBC (Auto) Urine Creatinine Urine Total Protein Fluid Total Protein Vancomycin Trough Rheumatoid Factor Complement C4 Miscellaneous Test Crossmatch 10/20/16 10/20/16 10/20/16 06:00 11:49 16:00 WBC 19.7 H RBC 2.51 L Hgb 7.7 L Hct 23.5 L MCV MCH MCHC RDW 17.5 H Plt Count Lymph % (Auto) [place] % (Auto) Lymph # [place] # Baso # Seg Neutrophils % Seg Neuts % (Manual) Lymphocytes % (Manual) Monocytes % (Manual) Eosinophils % (Manual) Basophils % (Manual) Nucleated RBC % Seg Neutrophils # Seg Neutrophils # Man Lymphocytes # (Manual) Monocytes # (Manual) Eosinophils # (Manual) PT INR Fibrinogen dRVVT Confirm Interp Factor V Activity POC ABG pH POC ABG pCO2 POC ABG pO2 ABG pO2 ABG HCO3 ABG Base Excess ABG Hemoglobin Oxyhemoglobin Sodium Potassium Chloride Carbon Dioxide BUN Creatinine Glucose POC Glucose 117 H Lactic Acid Calcium Phosphorus Magnesium Direct Bilirubin AST ALT Alkaline Phosphatase Lactate Dehydrogenase Troponin T C-Reactive Protein Total Protein Albumin Prealbumin Triglycerides Cholesterol LDL Cholesterol Direct HDL Cholesterol Urine pH Urine WBC (Auto) Urine Creatinine Urine Total Protein Fluid Total Protein Vancomycin Trough Rheumatoid Factor Complement C4 Miscellaneous Test Flexitest 1 H Crossmatch 10/20/16 10/20/16 10/21/16 18:36 23:39 04:00 WBC RBC Hgb Hct MCV MCH MCHC RDW Plt Count Lymph % (Auto) [place] % (Auto) Lymph # [place] # Baso # Seg Neutrophils % Seg Neuts % (Manual) Lymphocytes % (Manual) Monocytes % (Manual) Eosinophils % (Manual) Basophils % (Manual) Nucleated RBC % Seg Neutrophils # Seg Neutrophils # Man Lymphocytes # (Manual) Monocytes # (Manual) Eosinophils # (Manual) PT INR Fibrinogen dRVVT Confirm Interp Factor V Activity POC ABG pH POC ABG pCO2 POC ABG pO2 ABG pO2 ABG HCO3 ABG Base Excess ABG Hemoglobin Oxyhemoglobin Sodium Potassium 5.4 H D Chloride Carbon Dioxide 15 L BUN 110 H Creatinine 3.0 H Glucose POC Glucose 127 H 114 H Lactic Acid Calcium Phosphorus Magnesium Direct Bilirubin AST ALT Alkaline Phosphatase Lactate Dehydrogenase Troponin T C-Reactive Protein Total Protein Albumin Prealbumin Triglycerides Cholesterol LDL Cholesterol Direct HDL Cholesterol Urine pH Urine WBC (Auto) Urine Creatinine Urine Total Protein Fluid Total Protein Vancomycin Trough Rheumatoid Factor Complement C4 Miscellaneous Test Crossmatch 10/21/16 10/21/16 10/22/16 05:54 23:46 05:18 WBC RBC Hgb Hct MCV MCH MCHC RDW Plt Count Lymph % (Auto) [place] % (Auto) Lymph # [place] # Baso # Seg Neutrophils % Seg Neuts % (Manual) Lymphocytes % (Manual) Monocytes % (Manual) Eosinophils % (Manual) Basophils % (Manual) Nucleated RBC % Seg Neutrophils # Seg Neutrophils # Man Lymphocytes # (Manual) Monocytes # (Manual) Eosinophils # (Manual) PT INR Fibrinogen dRVVT Confirm Interp Factor V Activity POC ABG pH POC ABG pCO2 POC ABG pO2 ABG pO2 ABG HCO3 ABG Base Excess ABG Hemoglobin Oxyhemoglobin Sodium Potassium Chloride Carbon Dioxide BUN Creatinine Glucose POC Glucose 119 H 108 H 109 H Lactic Acid Calcium Phosphorus Magnesium Direct Bilirubin AST ALT Alkaline Phosphatase Lactate Dehydrogenase Troponin T C-Reactive Protein Total Protein Albumin Prealbumin Triglycerides Cholesterol LDL Cholesterol Direct HDL Cholesterol Urine pH Urine WBC (Auto) Urine Creatinine Urine Total Protein Fluid Total Protein Vancomycin Trough Rheumatoid Factor Complement C4 Miscellaneous Test Crossmatch 10/22/16 10/22/16 10/22/16 06:40 06:40 06:40 WBC 14.0 H RBC 2.03 L Hgb 7.0 L Hct 20.5 L MCV 98 H MCH 34 H MCHC 35 H RDW 17.8 H Plt Count Lymph % (Auto) [place] % (Auto) 9.9 H Lymph # [place] # 1.4 H Baso # 0.2 H Seg Neutrophils % 72.0 H Seg Neuts % (Manual) Lymphocytes % (Manual) Monocytes % (Manual) Eosinophils % (Manual) Basophils % (Manual) Nucleated RBC % Seg Neutrophils # 10.0 H Seg Neutrophils # Man Lymphocytes # (Manual) Monocytes # (Manual) Eosinophils # (Manual) PT INR Fibrinogen dRVVT Confirm Interp Factor V Activity POC ABG pH POC ABG pCO2 POC ABG pO2 ABG pO2 ABG HCO3 ABG Base Excess ABG Hemoglobin Oxyhemoglobin Sodium 130 L D Potassium Chloride 92.4 L Carbon Dioxide 20 L BUN 50 H Creatinine 1.6 H Glucose 589 H* POC Glucose Lactic Acid Calcium 7.8 L D Phosphorus Magnesium 1.60 L Direct Bilirubin AST ALT Alkaline Phosphatase Lactate Dehydrogenase Troponin T C-Reactive Protein Total Protein Albumin Prealbumin Triglycerides Cholesterol LDL Cholesterol Direct HDL Cholesterol Urine pH Urine WBC (Auto) Urine Creatinine Urine Total Protein Fluid Total Protein Vancomycin Trough Rheumatoid Factor Complement C4 Miscellaneous Test Crossmatch 10/22/16 10/22/16 10/22/16 11:39 16:44 23:36 WBC RBC Hgb Hct MCV MCH MCHC RDW Plt Count Lymph % (Auto) [place] % (Auto) Lymph # [place] # Baso # Seg Neutrophils % Seg Neuts % (Manual) Lymphocytes % (Manual) Monocytes % (Manual) Eosinophils % (Manual) Basophils % (Manual) Nucleated RBC % Seg Neutrophils # Seg Neutrophils # Man Lymphocytes # (Manual) Monocytes # (Manual) Eosinophils # (Manual) PT INR Fibrinogen dRVVT Confirm Interp Factor V Activity POC ABG pH POC ABG pCO2 POC ABG pO2 ABG pO2 ABG HCO3 ABG Base Excess ABG Hemoglobin Oxyhemoglobin Sodium Potassium Chloride Carbon Dioxide BUN Creatinine Glucose POC Glucose 142 H 163 H 123 H Lactic Acid Calcium Phosphorus Magnesium Direct Bilirubin AST ALT Alkaline Phosphatase Lactate Dehydrogenase Troponin T C-Reactive Protein Total Protein Albumin Prealbumin Triglycerides Cholesterol LDL Cholesterol Direct HDL Cholesterol Urine pH Urine WBC (Auto) Urine Creatinine Urine Total Protein Fluid Total Protein Vancomycin Trough Rheumatoid Factor Complement C4 Miscellaneous Test Crossmatch 10/23/16 10/23/16 10/23/16 04:58 06:00 12:12 WBC RBC Hgb Hct MCV MCH MCHC RDW Plt Count Lymph % (Auto) [place] % (Auto) Lymph # [place] # Baso # Seg Neutrophils % Seg Neuts % (Manual) Lymphocytes % (Manual) Monocytes % (Manual) Eosinophils % (Manual) Basophils % (Manual) Nucleated RBC % Seg Neutrophils # Seg Neutrophils # Man Lymphocytes # (Manual) Monocytes # (Manual) Eosinophils # (Manual) PT INR Fibrinogen dRVVT Confirm Interp Factor V Activity POC ABG pH POC ABG pCO2 POC ABG pO2 ABG pO2 ABG HCO3 ABG Base Excess ABG Hemoglobin Oxyhemoglobin Sodium 133 L Potassium 3.5 L Chloride 96.1 L Carbon Dioxide 18 L BUN 76 H Creatinine 2.1 H Glucose POC Glucose 133 H 138 H Lactic Acid Calcium 8.3 L Phosphorus Magnesium Direct Bilirubin AST ALT Alkaline Phosphatase Lactate Dehydrogenase Troponin T C-Reactive Protein Total Protein Albumin Prealbumin Triglycerides Cholesterol LDL Cholesterol Direct HDL Cholesterol Urine pH Urine WBC (Auto) Urine Creatinine Urine Total Protein Fluid Total Protein Vancomycin Trough Rheumatoid Factor Complement C4 Miscellaneous Test Crossmatch 10/23/16 10/23/16 10/24/16 16:53 23:37 04:00 WBC RBC Hgb Hct MCV MCH MCHC RDW Plt Count Lymph % (Auto) [place] % (Auto) Lymph # [place] # Baso # Seg Neutrophils % Seg Neuts % (Manual) Lymphocytes % (Manual) Monocytes % (Manual) Eosinophils % (Manual) Basophils % (Manual) Nucleated RBC % Seg Neutrophils # Seg Neutrophils # Man Lymphocytes # (Manual) Monocytes # (Manual) Eosinophils # (Manual) PT INR Fibrinogen dRVVT Confirm Interp Factor V Activity POC ABG pH POC ABG pCO2 POC ABG pO2 ABG pO2 ABG HCO3 ABG Base Excess ABG Hemoglobin Oxyhemoglobin Sodium 131 L Potassium Chloride 94.5 L Carbon Dioxide 19 L BUN 97 H Creatinine 2.6 H Glucose 110 H POC Glucose 125 H 123 H Lactic Acid Calcium 8.3 L Phosphorus Magnesium Direct Bilirubin AST ALT Alkaline Phosphatase Lactate Dehydrogenase Troponin T C-Reactive Protein Total Protein Albumin Prealbumin Triglycerides Cholesterol LDL Cholesterol Direct HDL Cholesterol Urine pH Urine WBC (Auto) Urine Creatinine Urine Total Protein Fluid Total Protein Vancomycin Trough Rheumatoid Factor Complement C4 Miscellaneous Test Crossmatch 10/24/16 10/24/16 10/24/16 07:49 11:39 17:52 WBC RBC Hgb 6.0 L Hct 19.7 L* MCV MCH MCHC RDW Plt Count Lymph % (Auto) [place] % (Auto) Lymph # [place] # Baso # Seg Neutrophils % Seg Neuts % (Manual) Lymphocytes % (Manual) Monocytes % (Manual) Eosinophils % (Manual) Basophils % (Manual) Nucleated RBC % Seg Neutrophils # Seg Neutrophils # Man Lymphocytes # (Manual) Monocytes # (Manual) Eosinophils # (Manual) PT INR Fibrinogen dRVVT Confirm Interp Factor V Activity POC ABG pH POC ABG pCO2 POC ABG pO2 ABG pO2 ABG HCO3 ABG Base Excess ABG Hemoglobin Oxyhemoglobin Sodium Potassium Chloride Carbon Dioxide BUN Creatinine Glucose POC Glucose 106 H 158 H Lactic Acid Calcium Phosphorus Magnesium Direct Bilirubin AST ALT Alkaline Phosphatase Lactate Dehydrogenase Troponin T C-Reactive Protein Total Protein Albumin Prealbumin Triglycerides Cholesterol LDL Cholesterol Direct HDL Cholesterol Urine pH Urine WBC (Auto) Urine Creatinine Urine Total Protein Fluid Total Protein Vancomycin Trough Rheumatoid Factor Complement C4 Miscellaneous Test Crossmatch 09/06/0610/24/16 10/24/16 20:00 22:27 Unknown WBC RBC Hgb 9.4 L D Hct 27.5 L D MCV MCH MCHC RDW Plt Count Lymph % (Auto) [place] % (Auto) Lymph # [place] # Baso # Seg Neutrophils % Seg Neuts % (Manual) Lymphocytes % (Manual) Monocytes % (Manual) Eosinophils % (Manual) Basophils % (Manual) Nucleated RBC % Seg Neutrophils # Seg Neutrophils # Man Lymphocytes # (Manual) Monocytes # (Manual) Eosinophils # (Manual) PT INR Fibrinogen dRVVT Confirm Interp Factor V Activity POC ABG pH POC ABG pCO2 POC ABG pO2 ABG pO2 ABG HCO3 ABG Base Excess ABG Hemoglobin Oxyhemoglobin Sodium Potassium Chloride Carbon Dioxide BUN Creatinine Glucose POC Glucose 125 H Lactic Acid Calcium Phosphorus Magnesium Direct Bilirubin AST ALT Alkaline Phosphatase Lactate Dehydrogenase Troponin T C-Reactive Protein Total Protein Albumin Prealbumin Triglycerides Cholesterol LDL Cholesterol Direct HDL Cholesterol Urine pH Urine WBC (Auto) Urine Creatinine Urine Total Protein Fluid Total Protein Vancomycin Trough Rheumatoid Factor Complement C4 Miscellaneous Test Crossmatch See Detail 10/25/16 10/25/16 10/25/16 04:00 04:00 04:00 WBC 14.2 H RBC 2.98 L Hgb 9.0 L Hct 26.2 L MCV MCH MCHC RDW 16.6 H Plt Count Lymph % (Auto) [place] % (Auto) 10.7 H Lymph # [place] # 1.5 H Baso # Seg Neutrophils % 73.6 H Seg Neuts % (Manual) Lymphocytes % (Manual) Monocytes % (Manual) Eosinophils % (Manual) Basophils % (Manual) Nucleated RBC % Seg Neutrophils # 10.5 H Seg Neutrophils # Man Lymphocytes # (Manual) Monocytes # (Manual) Eosinophils # (Manual) PT INR Fibrinogen dRVVT Confirm Interp Factor V Activity POC ABG pH POC ABG pCO2 POC ABG pO2 ABG pO2 ABG HCO3 ABG Base Excess ABG Hemoglobin Oxyhemoglobin Sodium 132 L Potassium Chloride 94.7 L Carbon Dioxide BUN 51 H Creatinine 1.6 H Glucose 130 H POC Glucose Lactic Acid Calcium 8.3 L Phosphorus 1.60 L D Magnesium Direct Bilirubin AST ALT Alkaline Phosphatase Lactate Dehydrogenase Troponin T C-Reactive Protein Total Protein Albumin Prealbumin Triglycerides Cholesterol LDL Cholesterol Direct HDL Cholesterol Urine pH Urine WBC (Auto) Urine Creatinine Urine Total Protein Fluid Total Protein Vancomycin Trough Rheumatoid Factor Complement C4 Miscellaneous Test Crossmatch 10/25/16 10/25/16 10/25/16 04:32 11:48 17:22 WBC RBC Hgb Hct MCV MCH MCHC RDW Plt Count Lymph % (Auto) [place] % (Auto) Lymph # [place] # Baso # Seg Neutrophils % Seg Neuts % (Manual) Lymphocytes % (Manual) Monocytes % (Manual) Eosinophils % (Manual) Basophils % (Manual) Nucleated RBC % Seg Neutrophils # Seg Neutrophils # Man Lymphocytes # (Manual) Monocytes # (Manual) Eosinophils # (Manual) PT INR Fibrinogen dRVVT Confirm Interp Factor V Activity POC ABG pH POC ABG pCO2 POC ABG pO2 ABG pO2 ABG HCO3 ABG Base Excess ABG Hemoglobin Oxyhemoglobin Sodium Potassium Chloride Carbon Dioxide BUN Creatinine Glucose POC Glucose 124 H 171 H 120 H Lactic Acid Calcium Phosphorus Magnesium Direct Bilirubin AST ALT Alkaline Phosphatase Lactate Dehydrogenase Troponin T C-Reactive Protein Total Protein Albumin Prealbumin Triglycerides Cholesterol LDL Cholesterol Direct HDL Cholesterol Urine pH Urine WBC (Auto) Urine Creatinine Urine Total Protein Fluid Total Protein Vancomycin Trough Rheumatoid Factor Complement C4 Miscellaneous Test Crossmatch 10/26/16 10/26/16 10/26/16 04:54 07:06 07:06 WBC 16.9 H RBC 3.06 L Hgb 9.1 L Hct 26.9 L MCV MCH MCHC RDW 16.9 H Plt Count Lymph % (Auto) [place] % (Auto) Lymph # [place] # Baso # Seg Neutrophils % Seg Neuts % (Manual) 71.0 H Lymphocytes % (Manual) 5.0 L Monocytes % (Manual) 12.0 H Eosinophils % (Manual) Basophils % (Manual) Nucleated RBC % Seg Neutrophils # Seg Neutrophils # Man 12.0 H Lymphocytes # (Manual) 0.8 L Monocytes # (Manual) 2.0 H Eosinophils # (Manual) PT INR Fibrinogen dRVVT Confirm Interp Factor V Activity POC ABG pH POC ABG pCO2 POC ABG pO2 ABG pO2 ABG HCO3 ABG Base Excess ABG Hemoglobin Oxyhemoglobin Sodium 135 L Potassium Chloride 97.1 L Carbon Dioxide BUN 73 H Creatinine 2.2 H Glucose 117 H POC Glucose 123 H Lactic Acid Calcium Phosphorus 1.70 L Magnesium Direct Bilirubin AST ALT Alkaline Phosphatase Lactate Dehydrogenase Troponin T C-Reactive Protein Total Protein Albumin Prealbumin Triglycerides Cholesterol LDL Cholesterol Direct HDL Cholesterol Urine pH Urine WBC (Auto) Urine Creatinine Urine Total Protein Fluid Total Protein Vancomycin Trough Rheumatoid Factor Complement C4 Miscellaneous Test Crossmatch 10/26/16 10/26/16 10/26/16 12:12 17:29 23:42 WBC RBC Hgb Hct MCV MCH MCHC RDW Plt Count Lymph % (Auto) [place] % (Auto) Lymph # [place] # Baso # Seg Neutrophils % Seg Neuts % (Manual) Lymphocytes % (Manual) Monocytes % (Manual) Eosinophils % (Manual) Basophils % (Manual) Nucleated RBC % Seg Neutrophils # Seg Neutrophils # Man Lymphocytes # (Manual) Monocytes # (Manual) Eosinophils # (Manual) PT INR Fibrinogen dRVVT Confirm Interp Factor V Activity POC ABG pH POC ABG pCO2 POC ABG pO2 ABG pO2 ABG HCO3 ABG Base Excess ABG Hemoglobin Oxyhemoglobin Sodium Potassium Chloride Carbon Dioxide BUN Creatinine Glucose POC Glucose 126 H 161 H 118 H Lactic Acid Calcium Phosphorus Magnesium Direct Bilirubin AST ALT Alkaline Phosphatase Lactate Dehydrogenase Troponin T C-Reactive Protein Total Protein Albumin Prealbumin Triglycerides Cholesterol LDL Cholesterol Direct HDL Cholesterol Urine pH Urine WBC (Auto) Urine Creatinine Urine Total Protein Fluid Total Protein Vancomycin Trough Rheumatoid Factor Complement C4 Miscellaneous Test Crossmatch 10/27/16 10/27/16 10/27/16 05:03 06:30 06:30 WBC 13.9 H RBC 3.09 L Hgb 9.2 L Hct 27.5 L MCV MCH MCHC RDW 17.0 H Plt Count Lymph % (Auto) [place] % (Auto) Lymph # [place] # Baso # Seg Neutrophils % Seg Neuts % (Manual) 78.0 H Lymphocytes % (Manual) Monocytes % (Manual) Eosinophils % (Manual) Basophils % (Manual) Nucleated RBC % 2.0 H Seg Neutrophils # Seg Neutrophils # Man 10.8 H Lymphocytes # (Manual) Monocytes # (Manual) 1.0 H Eosinophils # (Manual) PT INR Fibrinogen dRVVT Confirm Interp Factor V Activity POC ABG pH POC ABG pCO2 POC ABG pO2 ABG pO2 ABG HCO3 ABG Base Excess ABG Hemoglobin Oxyhemoglobin Sodium Potassium Chloride Carbon Dioxide BUN 40 H Creatinine 1.5 H Glucose 135 H POC Glucose 107 H Lactic Acid Calcium 8.3 L Phosphorus 1.30 L D Magnesium Direct Bilirubin AST ALT Alkaline Phosphatase Lactate Dehydrogenase Troponin T C-Reactive Protein Total Protein Albumin Prealbumin Triglycerides Cholesterol LDL Cholesterol Direct HDL Cholesterol Urine pH Urine WBC (Auto) Urine Creatinine Urine Total Protein Fluid Total Protein Vancomycin Trough Rheumatoid Factor Complement C4 Miscellaneous Test Crossmatch 10/27/16 10/27/16 10/27/16 13:27 18:07 23:40 WBC RBC Hgb Hct MCV MCH MCHC RDW Plt Count Lymph % (Auto) [place] % (Auto) Lymph # [place] # Baso # Seg Neutrophils % Seg Neuts % (Manual) Lymphocytes % (Manual) Monocytes % (Manual) Eosinophils % (Manual) Basophils % (Manual) Nucleated RBC % Seg Neutrophils # Seg Neutrophils # Man Lymphocytes # (Manual) Monocytes # (Manual) Eosinophils # (Manual) PT INR Fibrinogen dRVVT Confirm Interp Factor V Activity POC ABG pH POC ABG pCO2 POC ABG pO2 ABG pO2 ABG HCO3 ABG Base Excess ABG Hemoglobin Oxyhemoglobin Sodium Potassium Chloride Carbon Dioxide BUN Creatinine Glucose POC Glucose 117 H 121 H 118 H Lactic Acid Calcium Phosphorus Magnesium Direct Bilirubin AST ALT Alkaline Phosphatase Lactate Dehydrogenase Troponin T C-Reactive Protein Total Protein Albumin Prealbumin Triglycerides Cholesterol LDL Cholesterol Direct HDL Cholesterol Urine pH Urine WBC (Auto) Urine Creatinine Urine Total Protein Fluid Total Protein Vancomycin Trough Rheumatoid Factor Complement C4 Miscellaneous Test Crossmatch 10/28/16 10/28/16 10/28/16 05:48 06:45 06:45 WBC 14.7 H RBC 3.05 L Hgb 9.0 L Hct 26.9 L MCV MCH MCHC RDW 16.8 H Plt Count Lymph % (Auto) 8.2 L [place] % (Auto) 8.4 H Lymph # [place] # 1.2 H Baso # Seg Neutrophils % 81.9 H Seg Neuts % (Manual) Lymphocytes % (Manual) Monocytes % (Manual) Eosinophils % (Manual) Basophils % (Manual) Nucleated RBC % Seg Neutrophils # 12.1 H Seg Neutrophils # Man Lymphocytes # (Manual) Monocytes # (Manual) Eosinophils # (Manual) PT INR Fibrinogen dRVVT Confirm Interp Factor V Activity POC ABG pH POC ABG pCO2 POC ABG pO2 ABG pO2 ABG HCO3 ABG Base Excess ABG Hemoglobin Oxyhemoglobin Sodium Potassium Chloride Carbon Dioxide BUN 60 H Creatinine 1.9 H Glucose 120 H POC Glucose 114 H Lactic Acid Calcium Phosphorus Magnesium Direct Bilirubin AST ALT Alkaline Phosphatase Lactate Dehydrogenase Troponin T C-Reactive Protein Total Protein Albumin Prealbumin Triglycerides Cholesterol LDL Cholesterol Direct HDL Cholesterol Urine pH Urine WBC (Auto) Urine Creatinine Urine Total Protein Fluid Total Protein Vancomycin Trough Rheumatoid Factor Complement C4 Miscellaneous Test Crossmatch 10/28/16 10/28/16 10/29/16 17:08 23:50 05:10 WBC RBC Hgb Hct MCV MCH MCHC RDW Plt Count Lymph % (Auto) [place] % (Auto) Lymph # [place] # Baso # Seg Neutrophils % Seg Neuts % (Manual) Lymphocytes % (Manual) Monocytes % (Manual) Eosinophils % (Manual) Basophils % (Manual) Nucleated RBC % Seg Neutrophils # Seg Neutrophils # Man Lymphocytes # (Manual) Monocytes # (Manual) Eosinophils # (Manual) PT INR Fibrinogen dRVVT Confirm Interp Factor V Activity POC ABG pH POC ABG pCO2 POC ABG pO2 ABG pO2 ABG HCO3 ABG Base Excess ABG Hemoglobin Oxyhemoglobin Sodium Potassium Chloride Carbon Dioxide BUN Creatinine Glucose POC Glucose 109 H 110 H 124 H Lactic Acid Calcium Phosphorus Magnesium Direct Bilirubin AST ALT Alkaline Phosphatase Lactate Dehydrogenase Troponin T C-Reactive Protein Total Protein Albumin Prealbumin Triglycerides Cholesterol LDL Cholesterol Direct HDL Cholesterol Urine pH Urine WBC (Auto) Urine Creatinine Urine Total Protein Fluid Total Protein Vancomycin Trough Rheumatoid Factor Complement C4 Miscellaneous Test Crossmatch 10/29/16 10/29/16 10/29/16 07:45 07:45 12:19 WBC 14.7 H RBC 3.15 L Hgb 9.3 L Hct 28.9 L MCV MCH MCHC RDW 17.0 H Plt Count Lymph % (Auto) 11.9 L [place] % (Auto) 8.6 H Lymph # [place] # 1.3 H Baso # Seg Neutrophils % 78.1 H Seg Neuts % (Manual) Lymphocytes % (Manual) Monocytes % (Manual) Eosinophils % (Manual) Basophils % (Manual) Nucleated RBC % Seg Neutrophils # 11.4 H Seg Neutrophils # Man Lymphocytes # (Manual) Monocytes # (Manual) Eosinophils # (Manual) PT INR Fibrinogen dRVVT Confirm Interp Factor V Activity POC ABG pH POC ABG pCO2 POC ABG pO2 ABG pO2 ABG HCO3 ABG Base Excess ABG Hemoglobin Oxyhemoglobin Sodium Potassium 5.1 H Chloride Carbon Dioxide 19 L BUN 78 H Creatinine 2.2 H Glucose 116 H POC Glucose 118 H Lactic Acid Calcium Phosphorus Magnesium Direct Bilirubin AST ALT Alkaline Phosphatase Lactate Dehydrogenase Troponin T C-Reactive Protein Total Protein Albumin Prealbumin Triglycerides Cholesterol LDL Cholesterol Direct HDL Cholesterol Urine pH Urine WBC (Auto) Urine Creatinine Urine Total Protein Fluid Total Protein Vancomycin Trough Rheumatoid Factor Complement C4 Miscellaneous Test Crossmatch 09/11/0610/30/16 10/30/16 17:49 01:52 03:28 WBC RBC Hgb Hct MCV MCH MCHC RDW Plt Count Lymph % (Auto) [place] % (Auto) Lymph # [place] # Baso # Seg Neutrophils % Seg Neuts % (Manual) Lymphocytes % (Manual) Monocytes % (Manual) Eosinophils % (Manual) Basophils % (Manual) Nucleated RBC % Seg Neutrophils # Seg Neutrophils # Man Lymphocytes # (Manual) Monocytes # (Manual) Eosinophils # (Manual) PT INR Fibrinogen dRVVT Confirm Interp Factor V Activity POC ABG pH POC ABG pCO2 POC ABG pO2 ABG pO2 ABG HCO3 ABG Base Excess ABG Hemoglobin Oxyhemoglobin Sodium Potassium 5.4 H Chloride 97.5 L Carbon Dioxide 19 L BUN 90 H Creatinine 2.5 H Glucose POC Glucose 120 H 129 H Lactic Acid Calcium Phosphorus 5.20 H Magnesium Direct Bilirubin AST ALT Alkaline Phosphatase Lactate Dehydrogenase Troponin T C-Reactive Protein Total Protein Albumin Prealbumin Triglycerides Cholesterol LDL Cholesterol Direct HDL Cholesterol Urine pH Urine WBC (Auto) Urine Creatinine Urine Total Protein Fluid Total Protein Vancomycin Trough Rheumatoid Factor Complement C4 Miscellaneous Test Crossmatch 10/30/16 10/30/16 10/30/16 03:28 08:19 08:19 WBC 11.6 H 15.9 H RBC 2.75 L 2.82 L Hgb 7.9 L 8.3 L Hct 24.2 L 25.2 L MCV MCH MCHC RDW 16.7 H 17.2 H Plt Count Lymph % (Auto) [place] % (Auto) 9.8 H Lymph # [place] # 1.1 H Baso # Seg Neutrophils % 74.2 H Seg Neuts % (Manual) Lymphocytes % (Manual) Monocytes % (Manual) Eosinophils % (Manual) Basophils % (Manual) Nucleated RBC % Seg Neutrophils # 8.6 H Seg Neutrophils # Man Lymphocytes # (Manual) Monocytes # (Manual) Eosinophils # (Manual) PT INR Fibrinogen dRVVT Confirm Interp Factor V Activity POC ABG pH POC ABG pCO2 POC ABG pO2 ABG pO2 ABG HCO3 ABG Base Excess ABG Hemoglobin Oxyhemoglobin Sodium Potassium 5.3 H Chloride 97.4 L Carbon Dioxide 19 L BUN 93 H Creatinine 2.6 H Glucose POC Glucose Lactic Acid Calcium Phosphorus Magnesium Direct Bilirubin AST ALT Alkaline Phosphatase Lactate Dehydrogenase Troponin T C-Reactive Protein Total Protein Albumin Prealbumin Triglycerides Cholesterol LDL Cholesterol Direct HDL Cholesterol Urine pH Urine WBC (Auto) Urine Creatinine Urine Total Protein Fluid Total Protein Vancomycin Trough Rheumatoid Factor Complement C4 Miscellaneous Test Crossmatch 10/30/16 10/30/16 10/31/16 17:11 23:56 00:40 WBC RBC Hgb Hct MCV MCH MCHC RDW Plt Count Lymph % (Auto) [place] % (Auto) Lymph # [place] # Baso # Seg Neutrophils % Seg Neuts % (Manual) Lymphocytes % (Manual) Monocytes % (Manual) Eosinophils % (Manual) Basophils % (Manual) Nucleated RBC % Seg Neutrophils # Seg Neutrophils # Man Lymphocytes # (Manual) Monocytes # (Manual) Eosinophils # (Manual) PT INR Fibrinogen dRVVT Confirm Interp Factor V Activity POC ABG pH POC ABG pCO2 POC ABG pO2 ABG pO2 ABG HCO3 ABG Base Excess ABG Hemoglobin Oxyhemoglobin Sodium Potassium Chloride Carbon Dioxide BUN Creatinine Glucose POC Glucose 106 H 117 H 120 H Lactic Acid Calcium Phosphorus Magnesium Direct Bilirubin AST ALT Alkaline Phosphatase Lactate Dehydrogenase Troponin T C-Reactive Protein Total Protein Albumin Prealbumin Triglycerides Cholesterol LDL Cholesterol Direct HDL Cholesterol Urine pH Urine WBC (Auto) Urine Creatinine Urine Total Protein Fluid Total Protein Vancomycin Trough Rheumatoid Factor Complement C4 Miscellaneous Test Crossmatch 10/31/16 10/31/16 10/31/16 05:43 07:15 07:15 WBC 12.1 H RBC 2.63 L Hgb 7.7 L Hct 23.3 L MCV MCH MCHC RDW 16.7 H Plt Count Lymph % (Auto) 11.7 L [place] % (Auto) 7.7 H Lymph # [place] # 0.9 H Baso # Seg Neutrophils % 78.0 H Seg Neuts % (Manual) Lymphocytes % (Manual) Monocytes % (Manual) Eosinophils % (Manual) Basophils % (Manual) Nucleated RBC % Seg Neutrophils # 9.4 H Seg Neutrophils # Man Lymphocytes # (Manual) Monocytes # (Manual) Eosinophils # (Manual) PT INR Fibrinogen dRVVT Confirm Interp Factor V Activity POC ABG pH POC ABG pCO2 POC ABG pO2 ABG pO2 ABG HCO3 ABG Base Excess ABG Hemoglobin Oxyhemoglobin Sodium Potassium Chloride 96.4 L Carbon Dioxide 21 L BUN 99 H Creatinine 2.6 H Glucose 144 H POC Glucose 125 H Lactic Acid Calcium Phosphorus 4.80 H Magnesium Direct Bilirubin AST ALT Alkaline Phosphatase Lactate Dehydrogenase Troponin T C-Reactive Protein Total Protein Albumin Prealbumin Triglycerides Cholesterol LDL Cholesterol Direct HDL Cholesterol Urine pH Urine WBC (Auto) Urine Creatinine Urine Total Protein Fluid Total Protein Vancomycin Trough Rheumatoid Factor Complement C4 Miscellaneous Test Crossmatch 10/31/16 10/31/16 11/01/16 11:46 18:34 00:20 WBC RBC Hgb Hct MCV MCH MCHC RDW Plt Count Lymph % (Auto) [place] % (Auto) Lymph # [place] # Baso # Seg Neutrophils % Seg Neuts % (Manual) Lymphocytes % (Manual) Monocytes % (Manual) Eosinophils % (Manual) Basophils % (Manual) Nucleated RBC % Seg Neutrophils # Seg Neutrophils # Man Lymphocytes # (Manual) Monocytes # (Manual) Eosinophils # (Manual) PT INR Fibrinogen dRVVT Confirm Interp Factor V Activity POC ABG pH POC ABG pCO2 POC ABG pO2 ABG pO2 ABG HCO3 ABG Base Excess ABG Hemoglobin Oxyhemoglobin Sodium Potassium Chloride Carbon Dioxide BUN Creatinine Glucose POC Glucose 159 H 140 H 132 H Lactic Acid Calcium Phosphorus Magnesium Direct Bilirubin AST ALT Alkaline Phosphatase Lactate Dehydrogenase Troponin T C-Reactive Protein Total Protein Albumin Prealbumin Triglycerides Cholesterol LDL Cholesterol Direct HDL Cholesterol Urine pH Urine WBC (Auto) Urine Creatinine Urine Total Protein Fluid Total Protein Vancomycin Trough Rheumatoid Factor Complement C4 Miscellaneous Test Crossmatch 11/01/16 11/01/16 11/01/16 04:55 04:55 06:11 WBC 11.2 H RBC 2.68 L Hgb 7.5 L Hct 23.7 L MCV MCH MCHC RDW 16.1 H Plt Count Lymph % (Auto) [place] % (Auto) 9.8 H Lymph # [place] # 1.1 H Baso # Seg Neutrophils % 70.8 H Seg Neuts % (Manual) Lymphocytes % (Manual) Monocytes % (Manual) Eosinophils % (Manual) Basophils % (Manual) Nucleated RBC % Seg Neutrophils # 7.9 H Seg Neutrophils # Man Lymphocytes # (Manual) Monocytes # (Manual) Eosinophils # (Manual) PT INR Fibrinogen dRVVT Confirm Interp Factor V Activity POC ABG pH POC ABG pCO2 POC ABG pO2 ABG pO2 ABG HCO3 ABG Base Excess ABG Hemoglobin Oxyhemoglobin Sodium Potassium 3.3 L D Chloride Carbon Dioxide BUN 61 H Creatinine 1.9 H Glucose 114 H POC Glucose 115 H Lactic Acid Calcium Phosphorus 1.80 L D Magnesium Direct Bilirubin AST ALT Alkaline Phosphatase Lactate Dehydrogenase Troponin T C-Reactive Protein Total Protein Albumin Prealbumin Triglycerides Cholesterol LDL Cholesterol Direct HDL Cholesterol Urine pH Urine WBC (Auto) Urine Creatinine Urine Total Protein Fluid Total Protein Vancomycin Trough Rheumatoid Factor Complement C4 Miscellaneous Test Crossmatch 11/01/16 11/01/16 11/01/16 12:29 18:23 23:58 WBC RBC Hgb Hct MCV MCH MCHC RDW Plt Count Lymph % (Auto) [place] % (Auto) Lymph # [place] # Baso # Seg Neutrophils % Seg Neuts % (Manual) Lymphocytes % (Manual) Monocytes % (Manual) Eosinophils % (Manual) Basophils % (Manual) Nucleated RBC % Seg Neutrophils # Seg Neutrophils # Man Lymphocytes # (Manual) Monocytes # (Manual) Eosinophils # (Manual) PT INR Fibrinogen dRVVT Confirm Interp Factor V Activity POC ABG pH POC ABG pCO2 POC ABG pO2 ABG pO2 ABG HCO3 ABG Base Excess ABG Hemoglobin Oxyhemoglobin Sodium Potassium Chloride Carbon Dioxide BUN Creatinine Glucose POC Glucose 142 H 143 H 128 H Lactic Acid Calcium Phosphorus Magnesium Direct Bilirubin AST ALT Alkaline Phosphatase Lactate Dehydrogenase Troponin T C-Reactive Protein Total Protein Albumin Prealbumin Triglycerides Cholesterol LDL Cholesterol Direct HDL Cholesterol Urine pH Urine WBC (Auto) Urine Creatinine Urine Total Protein Fluid Total Protein Vancomycin Trough Rheumatoid Factor Complement C4 Miscellaneous Test Crossmatch 11/02/16 11/02/16 11/02/16 04:16 05:29 11:58 WBC RBC Hgb Hct MCV MCH MCHC RDW Plt Count Lymph % (Auto) [place] % (Auto) Lymph # [place] # Baso # Seg Neutrophils % Seg Neuts % (Manual) Lymphocytes % (Manual) Monocytes % (Manual) Eosinophils % (Manual) Basophils % (Manual) Nucleated RBC % Seg Neutrophils # Seg Neutrophils # Man Lymphocytes # (Manual) Monocytes # (Manual) Eosinophils # (Manual) PT INR Fibrinogen dRVVT Confirm Interp Factor V Activity POC ABG pH POC ABG pCO2 POC ABG pO2 ABG pO2 ABG HCO3 ABG Base Excess ABG Hemoglobin Oxyhemoglobin Sodium Potassium 3.1 L Chloride Carbon Dioxide BUN 73 H Creatinine 2.3 H Glucose 112 H POC Glucose 135 H 149 H Lactic Acid Calcium Phosphorus Magnesium Direct Bilirubin AST ALT Alkaline Phosphatase Lactate Dehydrogenase Troponin T C-Reactive Protein Total Protein Albumin Prealbumin Triglycerides Cholesterol LDL Cholesterol Direct HDL Cholesterol Urine pH Urine WBC (Auto) Urine Creatinine Urine Total Protein Fluid Total Protein Vancomycin Trough Rheumatoid Factor Complement C4 Miscellaneous Test Crossmatch 11/02/16 11/02/16 11/03/16 17:42 22:54 06:00 WBC RBC Hgb Hct MCV MCH MCHC RDW Plt Count Lymph % (Auto) [place] % (Auto) Lymph # [place] # Baso # Seg Neutrophils % Seg Neuts % (Manual) Lymphocytes % (Manual) Monocytes % (Manual) Eosinophils % (Manual) Basophils % (Manual) Nucleated RBC % Seg Neutrophils # Seg Neutrophils # Man Lymphocytes # (Manual) Monocytes # (Manual) Eosinophils # (Manual) PT INR Fibrinogen dRVVT Confirm Interp Factor V Activity POC ABG pH POC ABG pCO2 POC ABG pO2 ABG pO2 ABG HCO3 ABG Base Excess ABG Hemoglobin Oxyhemoglobin Sodium Potassium Chloride 96.7 L Carbon Dioxide BUN 41 H Creatinine 1.5 H Glucose 145 H POC Glucose 182 H 115 H Lactic Acid Calcium Phosphorus 1.60 L D Magnesium 1.50 L Direct Bilirubin AST ALT Alkaline Phosphatase Lactate Dehydrogenase Troponin T C-Reactive Protein Total Protein Albumin Prealbumin Triglycerides Cholesterol LDL Cholesterol Direct HDL Cholesterol Urine pH Urine WBC (Auto) Urine Creatinine Urine Total Protein Fluid Total Protein Vancomycin Trough Rheumatoid Factor Complement C4 Miscellaneous Test Crossmatch 11/03/16 11/03/16 11/03/16 11:53 17:45 23:37 WBC RBC Hgb Hct MCV MCH MCHC RDW Plt Count Lymph % (Auto) [place] % (Auto) Lymph # [place] # Baso # Seg Neutrophils % Seg Neuts % (Manual) Lymphocytes % (Manual) Monocytes % (Manual) Eosinophils % (Manual) Basophils % (Manual) Nucleated RBC % Seg Neutrophils # Seg Neutrophils # Man Lymphocytes # (Manual) Monocytes # (Manual) Eosinophils # (Manual) PT INR Fibrinogen dRVVT Confirm Interp Factor V Activity POC ABG pH POC ABG pCO2 POC ABG pO2 ABG pO2 ABG HCO3 ABG Base Excess ABG Hemoglobin Oxyhemoglobin Sodium Potassium Chloride Carbon Dioxide BUN Creatinine Glucose POC Glucose 131 H 134 H 113 H Lactic Acid Calcium Phosphorus Magnesium Direct Bilirubin AST ALT Alkaline Phosphatase Lactate Dehydrogenase Troponin T C-Reactive Protein Total Protein Albumin Prealbumin Triglycerides Cholesterol LDL Cholesterol Direct HDL Cholesterol Urine pH Urine WBC (Auto) Urine Creatinine Urine Total Protein Fluid Total Protein Vancomycin Trough Rheumatoid Factor Complement C4 Miscellaneous Test Crossmatch 11/04/16 11/04/16 11/04/16 05:41 06:00 12:10 WBC RBC Hgb Hct MCV MCH MCHC RDW Plt Count Lymph % (Auto) [place] % (Auto) Lymph # [place] # Baso # Seg Neutrophils % Seg Neuts % (Manual) Lymphocytes % (Manual) Monocytes % (Manual) Eosinophils % (Manual) Basophils % (Manual) Nucleated RBC % Seg Neutrophils # Seg Neutrophils # Man Lymphocytes # (Manual) Monocytes # (Manual) Eosinophils # (Manual) PT INR Fibrinogen dRVVT Confirm Interp Factor V Activity POC ABG pH POC ABG pCO2 POC ABG pO2 ABG pO2 ABG HCO3 ABG Base Excess ABG Hemoglobin Oxyhemoglobin Sodium Potassium Chloride 96.7 L Carbon Dioxide BUN 52 H Creatinine 1.9 H Glucose 126 H POC Glucose 137 H 191 H Lactic Acid Calcium Phosphorus Magnesium Direct Bilirubin AST ALT Alkaline Phosphatase Lactate Dehydrogenase Troponin T C-Reactive Protein Total Protein Albumin Prealbumin Triglycerides Cholesterol LDL Cholesterol Direct HDL Cholesterol Urine pH Urine WBC (Auto) Urine Creatinine Urine Total Protein Fluid Total Protein Vancomycin Trough Rheumatoid Factor Complement C4 Miscellaneous Test Crossmatch 11/04/16 11/05/16 11/05/16 22:57 03:10 05:10 WBC RBC Hgb Hct MCV MCH MCHC RDW Plt Count Lymph % (Auto) [place] % (Auto) Lymph # [place] # Baso # Seg Neutrophils % Seg Neuts % (Manual) Lymphocytes % (Manual) Monocytes % (Manual) Eosinophils % (Manual) Basophils % (Manual) Nucleated RBC % Seg Neutrophils # Seg Neutrophils # Man Lymphocytes # (Manual) Monocytes # (Manual) Eosinophils # (Manual) PT INR Fibrinogen dRVVT Confirm Interp Factor V Activity POC ABG pH POC ABG pCO2 POC ABG pO2 ABG pO2 ABG HCO3 ABG Base Excess ABG Hemoglobin Oxyhemoglobin Sodium 136 L Potassium Chloride 97.2 L Carbon Dioxide BUN 32 H Creatinine 1.3 H Glucose 123 H POC Glucose 125 H 108 H Lactic Acid Calcium 7.8 L Phosphorus Magnesium Direct Bilirubin AST ALT Alkaline Phosphatase Lactate Dehydrogenase Troponin T C-Reactive Protein Total Protein Albumin Prealbumin Triglycerides Cholesterol LDL Cholesterol Direct HDL Cholesterol Urine pH Urine WBC (Auto) Urine Creatinine Urine Total Protein Fluid Total Protein Vancomycin Trough Rheumatoid Factor Complement C4 Miscellaneous Test Crossmatch 11/05/16 11/05/16 11/05/16 12:23 13:09 13:25 WBC RBC Hgb Hct MCV MCH MCHC RDW Plt Count Lymph % (Auto) [place] % (Auto) Lymph # [place] # Baso # Seg Neutrophils % Seg Neuts % (Manual) Lymphocytes % (Manual) Monocytes % (Manual) Eosinophils % (Manual) Basophils % (Manual) Nucleated RBC % Seg Neutrophils # Seg Neutrophils # Man Lymphocytes # (Manual) Monocytes # (Manual) Eosinophils # (Manual) PT INR Fibrinogen dRVVT Confirm Interp Factor V Activity POC ABG pH POC ABG pCO2 POC ABG pO2 ABG pO2 ABG HCO3 ABG Base Excess ABG Hemoglobin Oxyhemoglobin Sodium Potassium Chloride Carbon Dioxide BUN Creatinine Glucose POC Glucose 124 H Lactic Acid Calcium Phosphorus Magnesium Direct Bilirubin AST ALT Alkaline Phosphatase Lactate Dehydrogenase Troponin T C-Reactive Protein 11.40 H Total Protein Albumin Prealbumin Triglycerides Cholesterol LDL Cholesterol Direct HDL Cholesterol Urine pH 9.0 H Urine WBC (Auto) Urine Creatinine Urine Total Protein Fluid Total Protein Vancomycin Trough Rheumatoid Factor Complement C4 Miscellaneous Test Crossmatch 11/05/16 11/05/16 11/05/16 13:25 17:54 23:42 WBC RBC Hgb Hct MCV MCH MCHC RDW Plt Count Lymph % (Auto) [place] % (Auto) Lymph # [place] # Baso # Seg Neutrophils % Seg Neuts % (Manual) Lymphocytes % (Manual) Monocytes % (Manual) Eosinophils % (Manual) Basophils % (Manual) Nucleated RBC % Seg Neutrophils # Seg Neutrophils # Man Lymphocytes # (Manual) Monocytes # (Manual) Eosinophils # (Manual) PT INR Fibrinogen dRVVT Confirm Interp Factor V Activity POC ABG pH POC ABG pCO2 POC ABG pO2 ABG pO2 ABG HCO3 ABG Base Excess ABG Hemoglobin Oxyhemoglobin Sodium Potassium Chloride Carbon Dioxide BUN Creatinine Glucose POC Glucose 114 H 134 H Lactic Acid Calcium Phosphorus Magnesium Direct Bilirubin AST ALT Alkaline Phosphatase Lactate Dehydrogenase Troponin T C-Reactive Protein Total Protein Albumin Prealbumin Triglycerides Cholesterol LDL Cholesterol Direct HDL Cholesterol Urine pH Urine WBC (Auto) Urine Creatinine Urine Total Protein Fluid Total Protein Vancomycin Trough Rheumatoid Factor Complement C4 Miscellaneous Test Flexitest 1 H Crossmatch 11/06/16 11/06/16 11/06/16 04:56 06:25 06:25 WBC RBC 2.50 L Hgb 7.3 L Hct 22.5 L MCV MCH MCHC RDW 16.9 H Plt Count Lymph % (Auto) [place] % (Auto) 10.5 H Lymph # [place] # 1.1 H Baso # Seg Neutrophils % Seg Neuts % (Manual) Lymphocytes % (Manual) Monocytes % (Manual) Eosinophils % (Manual) Basophils % (Manual) Nucleated RBC % Seg Neutrophils # Seg Neutrophils # Man Lymphocytes # (Manual) Monocytes # (Manual) Eosinophils # (Manual) PT INR Fibrinogen dRVVT Confirm Interp Factor V Activity POC ABG pH POC ABG pCO2 POC ABG pO2 ABG pO2 ABG HCO3 ABG Base Excess ABG Hemoglobin Oxyhemoglobin Sodium Potassium 5.1 H Chloride 95.9 L Carbon Dioxide BUN 52 H Creatinine 1.8 H Glucose 117 H POC Glucose 120 H Lactic Acid Calcium Phosphorus Magnesium Direct Bilirubin AST 103 H ALT 77 H Alkaline Phosphatase 285 H Lactate Dehydrogenase Troponin T C-Reactive Protein Total Protein 6.2 L Albumin 1.8 L Prealbumin 0.180 L Triglycerides Cholesterol LDL Cholesterol Direct HDL Cholesterol Urine pH Urine WBC (Auto) Urine Creatinine Urine Total Protein Fluid Total Protein Vancomycin Trough Rheumatoid Factor Complement C4 Miscellaneous Test Crossmatch 11/06/16 11/06/16 11/06/16 11:56 17:14 23:52 WBC RBC Hgb Hct MCV MCH MCHC RDW Plt Count Lymph % (Auto) [place] % (Auto) Lymph # [place] # Baso # Seg Neutrophils % Seg Neuts % (Manual) Lymphocytes % (Manual) Monocytes % (Manual) Eosinophils % (Manual) Basophils % (Manual) Nucleated RBC % Seg Neutrophils # Seg Neutrophils # Man Lymphocytes # (Manual) Monocytes # (Manual) Eosinophils # (Manual) PT INR Fibrinogen dRVVT Confirm Interp Factor V Activity POC ABG pH POC ABG pCO2 POC ABG pO2 ABG pO2 ABG HCO3 ABG Base Excess ABG Hemoglobin Oxyhemoglobin Sodium Potassium Chloride Carbon Dioxide BUN Creatinine Glucose POC Glucose 141 H 125 H 130 H Lactic Acid Calcium Phosphorus Magnesium Direct Bilirubin AST ALT Alkaline Phosphatase Lactate Dehydrogenase Troponin T C-Reactive Protein Total Protein Albumin Prealbumin Triglycerides Cholesterol LDL Cholesterol Direct HDL Cholesterol Urine pH Urine WBC (Auto) Urine Creatinine Urine Total Protein Fluid Total Protein Vancomycin Trough Rheumatoid Factor Complement C4 Miscellaneous Test Crossmatch 11/07/16 11/07/16 11/07/16 06:30 06:30 09:37 WBC RBC 2.18 L Hgb 6.3 L Hct 19.7 L* MCV MCH MCHC RDW 16.8 H Plt Count Lymph % (Auto) [place] % (Auto) 10.0 H Lymph # [place] # 1.0 H Baso # Seg Neutrophils % Seg Neuts % (Manual) Lymphocytes % (Manual) Monocytes % (Manual) Eosinophils % (Manual) Basophils % (Manual) Nucleated RBC % Seg Neutrophils # Seg Neutrophils # Man Lymphocytes # (Manual) Monocytes # (Manual) Eosinophils # (Manual) PT INR Fibrinogen dRVVT Confirm Interp Factor V Activity POC ABG pH POC ABG pCO2 POC ABG pO2 ABG pO2 ABG HCO3 ABG Base Excess ABG Hemoglobin Oxyhemoglobin Sodium 135 L Potassium Chloride 95.6 L Carbon Dioxide BUN 70 H Creatinine 2.0 H Glucose 126 H POC Glucose Lactic Acid Calcium Phosphorus Magnesium Direct Bilirubin AST ALT Alkaline Phosphatase Lactate Dehydrogenase Troponin T C-Reactive Protein Total Protein Albumin Prealbumin Triglycerides Cholesterol LDL Cholesterol Direct HDL Cholesterol Urine pH Urine WBC (Auto) Urine Creatinine Urine Total Protein Fluid Total Protein Vancomycin Trough Rheumatoid Factor Complement C4 Miscellaneous Test Crossmatch See Detail 11/07/16 11/07/16 11/07/16 12:52 18:51 21:26 WBC RBC Hgb Hct MCV MCH MCHC RDW Plt Count Lymph % (Auto) [place] % (Auto) Lymph # [place] # Baso # Seg Neutrophils % Seg Neuts % (Manual) Lymphocytes % (Manual) Monocytes % (Manual) Eosinophils % (Manual) Basophils % (Manual) Nucleated RBC % Seg Neutrophils # Seg Neutrophils # Man Lymphocytes # (Manual) Monocytes # (Manual) Eosinophils # (Manual) PT INR Fibrinogen dRVVT Confirm Interp Factor V Activity POC ABG pH 7.523 H POC ABG pCO2 34.6 L POC ABG pO2 53 L ABG pO2 ABG HCO3 ABG Base Excess ABG Hemoglobin Oxyhemoglobin Sodium Potassium Chloride Carbon Dioxide BUN Creatinine Glucose POC Glucose 142 H 155 H Lactic Acid Calcium Phosphorus Magnesium Direct Bilirubin AST ALT Alkaline Phosphatase Lactate Dehydrogenase Troponin T C-Reactive Protein Total Protein Albumin Prealbumin Triglycerides Cholesterol LDL Cholesterol Direct HDL Cholesterol Urine pH Urine WBC (Auto) Urine Creatinine Urine Total Protein Fluid Total Protein Vancomycin Trough Rheumatoid Factor Complement C4 Miscellaneous Test Crossmatch 11/07/16 11/08/16 11/08/16 21:34 13:03 23:37 WBC RBC 2.63 L Hgb 7.7 L Hct 22.7 L MCV MCH MCHC RDW 17.0 H Plt Count Lymph % (Auto) [place] % (Auto) Lymph # [place] # Baso # Seg Neutrophils % Seg Neuts % (Manual) Lymphocytes % (Manual) Monocytes % (Manual) Eosinophils % (Manual) Basophils % (Manual) Nucleated RBC % Seg Neutrophils # Seg Neutrophils # Man Lymphocytes # (Manual) Monocytes # (Manual) Eosinophils # (Manual) PT INR Fibrinogen dRVVT Confirm Interp Factor V Activity POC ABG pH 7.478 H POC ABG pCO2 34.0 L POC ABG pO2 50 L ABG pO2 ABG HCO3 ABG Base Excess ABG Hemoglobin Oxyhemoglobin Sodium Potassium Chloride Carbon Dioxide BUN Creatinine Glucose POC Glucose 113 H Lactic Acid Calcium Phosphorus Magnesium Direct Bilirubin AST ALT Alkaline Phosphatase Lactate Dehydrogenase Troponin T C-Reactive Protein Total Protein Albumin Prealbumin Triglycerides Cholesterol LDL Cholesterol Direct HDL Cholesterol Urine pH Urine WBC (Auto) Urine Creatinine Urine Total Protein Fluid Total Protein Vancomycin Trough Rheumatoid Factor Complement C4 Miscellaneous Test Crossmatch 11/09/16 11/09/16 11/09/16 04:35 10:15 18:21 WBC RBC 2.68 L Hgb 7.8 L Hct 23.3 L MCV MCH MCHC RDW 17.0 H Plt Count Lymph % (Auto) [place] % (Auto) 12.1 H Lymph # [place] # 1.1 H Baso # Seg Neutrophils % Seg Neuts % (Manual) Lymphocytes % (Manual) Monocytes % (Manual) Eosinophils % (Manual) Basophils % (Manual) Nucleated RBC % Seg Neutrophils # Seg Neutrophils # Man Lymphocytes # (Manual) Monocytes # (Manual) Eosinophils # (Manual) PT INR Fibrinogen dRVVT Confirm Interp Factor V Activity POC ABG pH POC ABG pCO2 POC ABG pO2 ABG pO2 ABG HCO3 ABG Base Excess ABG Hemoglobin Oxyhemoglobin Sodium Potassium Chloride Carbon Dioxide BUN 51 H Creatinine 1.8 H Glucose POC Glucose 60 L Lactic Acid Calcium 8.3 L Phosphorus Magnesium Direct Bilirubin AST ALT Alkaline Phosphatase Lactate Dehydrogenase Troponin T C-Reactive Protein Total Protein Albumin Prealbumin Triglycerides Cholesterol LDL Cholesterol Direct HDL Cholesterol Urine pH Urine WBC (Auto) Urine Creatinine Urine Total Protein Fluid Total Protein Vancomycin Trough Rheumatoid Factor Complement C4 Miscellaneous Test Crossmatch 11/09/16 11/10/16 11/10/16 18:55 07:00 11:51 WBC RBC Hgb Hct MCV MCH MCHC RDW Plt Count Lymph % (Auto) [place] % (Auto) Lymph # [place] # Baso # Seg Neutrophils % Seg Neuts % (Manual) Lymphocytes % (Manual) Monocytes % (Manual) Eosinophils % (Manual) Basophils % (Manual) Nucleated RBC % Seg Neutrophils # Seg Neutrophils # Man Lymphocytes # (Manual) Monocytes # (Manual) Eosinophils # (Manual) PT INR Fibrinogen dRVVT Confirm Interp Factor V Activity POC ABG pH POC ABG pCO2 POC ABG pO2 ABG pO2 ABG HCO3 ABG Base Excess ABG Hemoglobin Oxyhemoglobin Sodium Potassium 3.0 L D Chloride 97.4 L Carbon Dioxide BUN 28 H Creatinine 1.3 H Glucose POC Glucose 68 L 120 H Lactic Acid Calcium 7.8 L Phosphorus Magnesium Direct Bilirubin AST ALT Alkaline Phosphatase Lactate Dehydrogenase Troponin T C-Reactive Protein Total Protein Albumin Prealbumin Triglycerides Cholesterol LDL Cholesterol Direct HDL Cholesterol Urine pH Urine WBC (Auto) Urine Creatinine Urine Total Protein Fluid Total Protein Vancomycin Trough Rheumatoid Factor Complement C4 Miscellaneous Test Crossmatch 11/10/16 11/11/16 11/11/16 14:20 06:59 06:59 WBC RBC 2.81 L Hgb 8.1 L Hct 24.4 L MCV MCH MCHC RDW 16.4 H Plt Count Lymph % (Auto) [place] % (Auto) 10.8 H Lymph # [place] # 1.0 H Baso # Seg Neutrophils % Seg Neuts % (Manual) Lymphocytes % (Manual) Monocytes % (Manual) Eosinophils % (Manual) Basophils % (Manual) Nucleated RBC % Seg Neutrophils # Seg Neutrophils # Man Lymphocytes # (Manual) Monocytes # (Manual) Eosinophils # (Manual) PT INR Fibrinogen dRVVT Confirm Interp Factor V Activity POC ABG pH POC ABG pCO2 POC ABG pO2 ABG pO2 ABG HCO3 ABG Base Excess ABG Hemoglobin Oxyhemoglobin Sodium Potassium Chloride Carbon Dioxide BUN Creatinine Glucose POC Glucose Lactic Acid Calcium Phosphorus Magnesium Direct Bilirubin AST ALT Alkaline Phosphatase Lactate Dehydrogenase 196 H Troponin T C-Reactive Protein Total Protein 6.1 L Albumin Prealbumin Triglycerides Cholesterol LDL Cholesterol Direct HDL Cholesterol Urine pH Urine WBC (Auto) Urine Creatinine Urine Total Protein Fluid Total Protein < 3.0 L Vancomycin Trough Rheumatoid Factor Complement C4 Miscellaneous Test Crossmatch 11/11/16 11/11/16 11/12/16 06:59 09:50 04:00 WBC RBC Hgb Hct MCV MCH MCHC RDW Plt Count Lymph % (Auto) [place] % (Auto) Lymph # [place] # Baso # Seg Neutrophils % Seg Neuts % (Manual) Lymphocytes % (Manual) Monocytes % (Manual) Eosinophils % (Manual) Basophils % (Manual) Nucleated RBC % Seg Neutrophils # Seg Neutrophils # Man Lymphocytes # (Manual) Monocytes # (Manual) Eosinophils # (Manual) PT INR 1.18 H Fibrinogen dRVVT Confirm Interp Factor V Activity POC ABG pH POC ABG pCO2 POC ABG pO2 ABG pO2 ABG HCO3 ABG Base Excess ABG Hemoglobin Oxyhemoglobin Sodium 136 L 133 L Potassium Chloride 96.1 L 94.8 L Carbon Dioxide 21 L BUN 37 H 42 H Creatinine 1.8 H 2.0 H Glucose POC Glucose Lactic Acid Calcium Phosphorus Magnesium Direct Bilirubin AST ALT Alkaline Phosphatase Lactate Dehydrogenase Troponin T C-Reactive Protein Total Protein Albumin Prealbumin Triglycerides Cholesterol LDL Cholesterol Direct HDL Cholesterol Urine pH Urine WBC (Auto) Urine Creatinine Urine Total Protein Fluid Total Protein Vancomycin Trough Rheumatoid Factor Complement C4 Miscellaneous Test Crossmatch 11/12/16 11/12/16 11/13/16 04:00 23:55 05:53 WBC RBC Hgb 8.9 L Hct 27.2 L MCV MCH MCHC RDW Plt Count Lymph % (Auto) [place] % (Auto) Lymph # [place] # Baso # Seg Neutrophils % Seg Neuts % (Manual) Lymphocytes % (Manual) Monocytes % (Manual) Eosinophils % (Manual) Basophils % (Manual) Nucleated RBC % Seg Neutrophils # Seg Neutrophils # Man Lymphocytes # (Manual) Monocytes # (Manual) Eosinophils # (Manual) PT INR Fibrinogen dRVVT Confirm Interp Factor V Activity POC ABG pH POC ABG pCO2 POC ABG pO2 ABG pO2 ABG HCO3 ABG Base Excess ABG Hemoglobin Oxyhemoglobin Sodium Potassium Chloride Carbon Dioxide BUN Creatinine Glucose POC Glucose 132 H 120 H Lactic Acid Calcium Phosphorus Magnesium Direct Bilirubin AST ALT Alkaline Phosphatase Lactate Dehydrogenase Troponin T C-Reactive Protein Total Protein Albumin Prealbumin Triglycerides Cholesterol LDL Cholesterol Direct HDL Cholesterol Urine pH Urine WBC (Auto) Urine Creatinine Urine Total Protein Fluid Total Protein Vancomycin Trough Rheumatoid Factor Complement C4 Miscellaneous Test Crossmatch 11/13/16 11/13/16 11/13/16 11:43 17:09 23:41 WBC RBC Hgb Hct MCV MCH MCHC RDW Plt Count Lymph % (Auto) [place] % (Auto) Lymph # [place] # Baso # Seg Neutrophils % Seg Neuts % (Manual) Lymphocytes % (Manual) Monocytes % (Manual) Eosinophils % (Manual) Basophils % (Manual) Nucleated RBC % Seg Neutrophils # Seg Neutrophils # Man Lymphocytes # (Manual) Monocytes # (Manual) Eosinophils # (Manual) PT INR Fibrinogen dRVVT Confirm Interp Factor V Activity POC ABG pH POC ABG pCO2 POC ABG pO2 ABG pO2 ABG HCO3 ABG Base Excess ABG Hemoglobin Oxyhemoglobin Sodium Potassium Chloride Carbon Dioxide BUN Creatinine Glucose POC Glucose 114 H 113 H 108 H Lactic Acid Calcium Phosphorus Magnesium Direct Bilirubin AST ALT Alkaline Phosphatase Lactate Dehydrogenase Troponin T C-Reactive Protein Total Protein Albumin Prealbumin Triglycerides Cholesterol LDL Cholesterol Direct HDL Cholesterol Urine pH Urine WBC (Auto) Urine Creatinine Urine Total Protein Fluid Total Protein Vancomycin Trough Rheumatoid Factor Complement C4 Miscellaneous Test Crossmatch 11/13/16 11/15/16 11/15/16 Unknown 00:37 03:30 WBC 11.2 H RBC 2.72 L Hgb 7.6 L Hct 23.4 L MCV MCH MCHC RDW 16.5 H Plt Count Lymph % (Auto) [place] % (Auto) Lymph # [place] # Baso # Seg Neutrophils % Seg Neuts % (Manual) Lymphocytes % (Manual) Monocytes % (Manual) Eosinophils % (Manual) Basophils % (Manual) Nucleated RBC % Seg Neutrophils # Seg Neutrophils # Man Lymphocytes # (Manual) Monocytes # (Manual) Eosinophils # (Manual) PT INR Fibrinogen dRVVT Confirm Interp Factor V Activity POC ABG pH POC ABG pCO2 POC ABG pO2 ABG pO2 ABG HCO3 ABG Base Excess ABG Hemoglobin Oxyhemoglobin Sodium 135 L Potassium Chloride 95.2 L Carbon Dioxide BUN 52 H Creatinine 2.2 H Glucose POC Glucose 108 H Lactic Acid Calcium Phosphorus Magnesium Direct Bilirubin AST ALT Alkaline Phosphatase Lactate Dehydrogenase Troponin T C-Reactive Protein Total Protein Albumin Prealbumin Triglycerides Cholesterol LDL Cholesterol Direct HDL Cholesterol Urine pH Urine WBC (Auto) Urine Creatinine Urine Total Protein Fluid Total Protein Vancomycin Trough Rheumatoid Factor Complement C4 Miscellaneous Test Crossmatch 11/15/16 11/15/16 11/15/16 03:30 05:04 11:50 WBC RBC Hgb Hct MCV MCH MCHC RDW Plt Count Lymph % (Auto) [place] % (Auto) Lymph # [place] # Baso # Seg Neutrophils % Seg Neuts % (Manual) Lymphocytes % (Manual) Monocytes % (Manual) Eosinophils % (Manual) Basophils % (Manual) Nucleated RBC % Seg Neutrophils # Seg Neutrophils # Man Lymphocytes # (Manual) Monocytes # (Manual) Eosinophils # (Manual) PT INR Fibrinogen dRVVT Confirm Interp Factor V Activity POC ABG pH POC ABG pCO2 POC ABG pO2 ABG pO2 ABG HCO3 ABG Base Excess ABG Hemoglobin Oxyhemoglobin Sodium Potassium 3.4 L Chloride Carbon Dioxide BUN 25 H Creatinine 1.5 H Glucose 103 H POC Glucose 121 H 144 H Lactic Acid Calcium Phosphorus Magnesium Direct Bilirubin AST ALT Alkaline Phosphatase Lactate Dehydrogenase Troponin T C-Reactive Protein Total Protein Albumin Prealbumin Triglycerides Cholesterol LDL Cholesterol Direct HDL Cholesterol Urine pH Urine WBC (Auto) Urine Creatinine Urine Total Protein Fluid Total Protein Vancomycin Trough Rheumatoid Factor Complement C4 Miscellaneous Test Crossmatch 11/15/16 11/15/16 11/16/16 21:28 23:20 11:44 WBC RBC Hgb Hct MCV MCH MCHC RDW Plt Count Lymph % (Auto) [place] % (Auto) Lymph # [place] # Baso # Seg Neutrophils % Seg Neuts % (Manual) Lymphocytes % (Manual) Monocytes % (Manual) Eosinophils % (Manual) Basophils % (Manual) Nucleated RBC % Seg Neutrophils # Seg Neutrophils # Man Lymphocytes # (Manual) Monocytes # (Manual) Eosinophils # (Manual) PT INR Fibrinogen dRVVT Confirm Interp Factor V Activity POC ABG pH 7.462 H POC ABG pCO2 POC ABG pO2 71 L ABG pO2 ABG HCO3 ABG Base Excess ABG Hemoglobin Oxyhemoglobin Sodium Potassium Chloride Carbon Dioxide BUN Creatinine Glucose POC Glucose 116 H 133 H Lactic Acid Calcium Phosphorus Magnesium Direct Bilirubin AST ALT Alkaline Phosphatase Lactate Dehydrogenase Troponin T C-Reactive Protein Total Protein Albumin Prealbumin Triglycerides Cholesterol LDL Cholesterol Direct HDL Cholesterol Urine pH Urine WBC (Auto) Urine Creatinine Urine Total Protein Fluid Total Protein Vancomycin Trough Rheumatoid Factor Complement C4 Miscellaneous Test Crossmatch 11/16/16 11/16/16 11/16/16 12:20 17:05 23:35 WBC 11.7 H RBC 2.73 L Hgb 7.6 L Hct 23.7 L MCV MCH MCHC RDW 16.6 H Plt Count Lymph % (Auto) [place] % (Auto) Lymph # [place] # Baso # Seg Neutrophils % Seg Neuts % (Manual) Lymphocytes % (Manual) Monocytes % (Manual) Eosinophils % (Manual) Basophils % (Manual) Nucleated RBC % Seg Neutrophils # Seg Neutrophils # Man Lymphocytes # (Manual) Monocytes # (Manual) Eosinophils # (Manual) PT INR Fibrinogen dRVVT Confirm Interp Factor V Activity POC ABG pH POC ABG pCO2 POC ABG pO2 ABG pO2 ABG HCO3 ABG Base Excess ABG Hemoglobin Oxyhemoglobin Sodium Potassium Chloride Carbon Dioxide BUN Creatinine Glucose POC Glucose 154 H 125 H Lactic Acid Calcium Phosphorus Magnesium Direct Bilirubin AST ALT Alkaline Phosphatase Lactate Dehydrogenase Troponin T C-Reactive Protein Total Protein Albumin Prealbumin Triglycerides Cholesterol LDL Cholesterol Direct HDL Cholesterol Urine pH Urine WBC (Auto) Urine Creatinine Urine Total Protein Fluid Total Protein Vancomycin Trough Rheumatoid Factor Complement C4 Miscellaneous Test Crossmatch 11/17/16 11/17/16 11/17/16 03:20 03:20 03:20 WBC RBC 2.55 L Hgb 7.3 L Hct 21.9 L MCV MCH MCHC RDW 16.6 H Plt Count Lymph % (Auto) [place] % (Auto) 11.5 H Lymph # [place] # 1.1 H Baso # Seg Neutrophils % Seg Neuts % (Manual) Lymphocytes % (Manual) Monocytes % (Manual) Eosinophils % (Manual) Basophils % (Manual) Nucleated RBC % Seg Neutrophils # Seg Neutrophils # Man Lymphocytes # (Manual) Monocytes # (Manual) Eosinophils # (Manual) PT 16.8 H INR 1.37 H Fibrinogen dRVVT Confirm Interp Factor V Activity POC ABG pH POC ABG pCO2 POC ABG pO2 ABG pO2 ABG HCO3 ABG Base Excess ABG Hemoglobin Oxyhemoglobin Sodium Potassium 3.5 L Chloride Carbon Dioxide BUN 21 H Creatinine Glucose POC Glucose Lactic Acid Calcium 7.9 L Phosphorus Magnesium Direct Bilirubin AST ALT Alkaline Phosphatase Lactate Dehydrogenase Troponin T C-Reactive Protein Total Protein Albumin Prealbumin Triglycerides Cholesterol LDL Cholesterol Direct HDL Cholesterol Urine pH Urine WBC (Auto) Urine Creatinine Urine Total Protein Fluid Total Protein Vancomycin Trough Rheumatoid Factor Complement C4 Miscellaneous Test Crossmatch 11/17/16 11/17/16 11/17/16 06:34 11:21 21:22 WBC RBC Hgb Hct MCV MCH MCHC RDW Plt Count Lymph % (Auto) [place] % (Auto) Lymph # [place] # Baso # Seg Neutrophils % Seg Neuts % (Manual) Lymphocytes % (Manual) Monocytes % (Manual) Eosinophils % (Manual) Basophils % (Manual) Nucleated RBC % Seg Neutrophils # Seg Neutrophils # Man Lymphocytes # (Manual) Monocytes # (Manual) Eosinophils # (Manual) PT INR Fibrinogen dRVVT Confirm Interp Factor V Activity POC ABG pH 7.467 H POC ABG pCO2 POC ABG pO2 73 L ABG pO2 ABG HCO3 ABG Base Excess ABG Hemoglobin Oxyhemoglobin Sodium Potassium Chloride Carbon Dioxide BUN Creatinine Glucose POC Glucose 121 H 119 H Lactic Acid Calcium Phosphorus Magnesium Direct Bilirubin AST ALT Alkaline Phosphatase Lactate Dehydrogenase Troponin T C-Reactive Protein Total Protein Albumin Prealbumin Triglycerides Cholesterol LDL Cholesterol Direct HDL Cholesterol Urine pH Urine WBC (Auto) Urine Creatinine Urine Total Protein Fluid Total Protein Vancomycin Trough Rheumatoid Factor Complement C4 Miscellaneous Test Crossmatch 11/18/16 11/18/16 11/19/16 12:16 17:19 00:00 WBC RBC Hgb Hct MCV MCH MCHC RDW Plt Count Lymph % (Auto) [place] % (Auto) Lymph # [place] # Baso # Seg Neutrophils % Seg Neuts % (Manual) Lymphocytes % (Manual) Monocytes % (Manual) Eosinophils % (Manual) Basophils % (Manual) Nucleated RBC % Seg Neutrophils # Seg Neutrophils # Man Lymphocytes # (Manual) Monocytes # (Manual) Eosinophils # (Manual) PT INR Fibrinogen dRVVT Confirm Interp Factor V Activity POC ABG pH POC ABG pCO2 POC ABG pO2 ABG pO2 ABG HCO3 ABG Base Excess ABG Hemoglobin Oxyhemoglobin Sodium Potassium Chloride Carbon Dioxide BUN Creatinine Glucose POC Glucose 124 H 162 H 139 H Lactic Acid Calcium Phosphorus Magnesium Direct Bilirubin AST ALT Alkaline Phosphatase Lactate Dehydrogenase Troponin T C-Reactive Protein Total Protein Albumin Prealbumin Triglycerides Cholesterol LDL Cholesterol Direct HDL Cholesterol Urine pH Urine WBC (Auto) Urine Creatinine Urine Total Protein Fluid Total Protein Vancomycin Trough Rheumatoid Factor Complement C4 Miscellaneous Test Crossmatch 11/19/16 11/19/16 11/20/16 05:00 12:43 00:40 WBC RBC Hgb Hct MCV MCH MCHC RDW Plt Count Lymph % (Auto) [place] % (Auto) Lymph # [place] # Baso # Seg Neutrophils % Seg Neuts % (Manual) Lymphocytes % (Manual) Monocytes % (Manual) Eosinophils % (Manual) Basophils % (Manual) Nucleated RBC % Seg Neutrophils # Seg Neutrophils # Man Lymphocytes # (Manual) Monocytes # (Manual) Eosinophils # (Manual) PT INR Fibrinogen dRVVT Confirm Interp Factor V Activity POC ABG pH POC ABG pCO2 POC ABG pO2 ABG pO2 ABG HCO3 ABG Base Excess ABG Hemoglobin Oxyhemoglobin Sodium Potassium Chloride Carbon Dioxide BUN Creatinine Glucose POC Glucose 110 H 125 H 136 H Lactic Acid Calcium Phosphorus Magnesium Direct Bilirubin AST ALT Alkaline Phosphatase Lactate Dehydrogenase Troponin T C-Reactive Protein Total Protein Albumin Prealbumin Triglycerides Cholesterol LDL Cholesterol Direct HDL Cholesterol Urine pH Urine WBC (Auto) Urine Creatinine Urine Total Protein Fluid Total Protein Vancomycin Trough Rheumatoid Factor Complement C4 Miscellaneous Test Crossmatch 11/20/16 11/20/16 11/20/16 05:00 05:00 05:51 WBC 13.1 H RBC 2.74 L Hgb 7.7 L Hct 23.6 L MCV MCH MCHC RDW 16.9 H Plt Count Lymph % (Auto) [place] % (Auto) 10.8 H Lymph # [place] # 1.4 H Baso # Seg Neutrophils % Seg Neuts % (Manual) Lymphocytes % (Manual) Monocytes % (Manual) Eosinophils % (Manual) Basophils % (Manual) Nucleated RBC % Seg Neutrophils # 7.9 H Seg Neutrophils # Man Lymphocytes # (Manual) Monocytes # (Manual) Eosinophils # (Manual) PT INR Fibrinogen dRVVT Confirm Interp Factor V Activity POC ABG pH POC ABG pCO2 POC ABG pO2 ABG pO2 ABG HCO3 ABG Base Excess ABG Hemoglobin Oxyhemoglobin Sodium Potassium Chloride Carbon Dioxide BUN 31 H Creatinine 1.8 H Glucose 129 H POC Glucose 133 H Lactic Acid Calcium Phosphorus Magnesium Direct Bilirubin AST ALT Alkaline Phosphatase Lactate Dehydrogenase Troponin T C-Reactive Protein Total Protein Albumin Prealbumin Triglycerides Cholesterol LDL Cholesterol Direct HDL Cholesterol Urine pH Urine WBC (Auto) Urine Creatinine Urine Total Protein Fluid Total Protein Vancomycin Trough Rheumatoid Factor Complement C4 Miscellaneous Test Crossmatch 11/20/16 11/20/16 11/21/16 12:40 18:10 01:20 WBC RBC Hgb Hct MCV MCH MCHC RDW Plt Count Lymph % (Auto) [place] % (Auto) Lymph # [place] # Baso # Seg Neutrophils % Seg Neuts % (Manual) Lymphocytes % (Manual) Monocytes % (Manual) Eosinophils % (Manual) Basophils % (Manual) Nucleated RBC % Seg Neutrophils # Seg Neutrophils # Man Lymphocytes # (Manual) Monocytes # (Manual) Eosinophils # (Manual) PT INR Fibrinogen dRVVT Confirm Interp Factor V Activity POC ABG pH POC ABG pCO2 POC ABG pO2 ABG pO2 ABG HCO3 ABG Base Excess ABG Hemoglobin Oxyhemoglobin Sodium Potassium Chloride Carbon Dioxide BUN Creatinine Glucose POC Glucose 134 H 138 H 136 H Lactic Acid Calcium Phosphorus Magnesium Direct Bilirubin AST ALT Alkaline Phosphatase Lactate Dehydrogenase Troponin T C-Reactive Protein Total Protein Albumin Prealbumin Triglycerides Cholesterol LDL Cholesterol Direct HDL Cholesterol Urine pH Urine WBC (Auto) Urine Creatinine Urine Total Protein Fluid Total Protein Vancomycin Trough Rheumatoid Factor Complement C4 Miscellaneous Test Crossmatch 11/21/16 11/21/16 11/21/16 07:04 07:45 07:45 WBC 22.0 H RBC 2.91 L Hgb 8.2 L Hct 25.4 L MCV MCH MCHC RDW 17.1 H Plt Count Lymph % (Auto) [place] % (Auto) Lymph # [place] # Baso # Seg Neutrophils % Seg Neuts % (Manual) Lymphocytes % (Manual) 8.0 L Monocytes % (Manual) Eosinophils % (Manual) Basophils % (Manual) Nucleated RBC % Seg Neutrophils # Seg Neutrophils # Man 14.7 H Lymphocytes # (Manual) Monocytes # (Manual) 1.1 H Eosinophils # (Manual) PT INR Fibrinogen dRVVT Confirm Interp Factor V Activity POC ABG pH POC ABG pCO2 POC ABG pO2 ABG pO2 ABG HCO3 ABG Base Excess ABG Hemoglobin Oxyhemoglobin Sodium Potassium Chloride Carbon Dioxide BUN 42 H Creatinine 2.0 H Glucose POC Glucose 108 H Lactic Acid Calcium Phosphorus Magnesium Direct Bilirubin AST ALT Alkaline Phosphatase Lactate Dehydrogenase Troponin T C-Reactive Protein Total Protein Albumin Prealbumin Triglycerides Cholesterol LDL Cholesterol Direct HDL Cholesterol Urine pH Urine WBC (Auto) Urine Creatinine Urine Total Protein Fluid Total Protein Vancomycin Trough Rheumatoid Factor Complement C4 Miscellaneous Test Crossmatch 11/21/16 11/21/16 11/21/16 08:38 10:09 11:20 WBC RBC Hgb Hct MCV MCH MCHC RDW Plt Count Lymph % (Auto) [place] % (Auto) Lymph # [place] # Baso # Seg Neutrophils % Seg Neuts % (Manual) Lymphocytes % (Manual) Monocytes % (Manual) Eosinophils % (Manual) Basophils % (Manual) Nucleated RBC % Seg Neutrophils # Seg Neutrophils # Man Lymphocytes # (Manual) Monocytes # (Manual) Eosinophils # (Manual) PT INR Fibrinogen dRVVT Confirm Interp Factor V Activity POC ABG pH 7.346 L POC ABG pCO2 34.4 L POC ABG pO2 314 H ABG pO2 ABG HCO3 ABG Base Excess ABG Hemoglobin Oxyhemoglobin Sodium Potassium Chloride Carbon Dioxide BUN Creatinine Glucose POC Glucose 195 H 153 H Lactic Acid Calcium Phosphorus Magnesium Direct Bilirubin AST ALT Alkaline Phosphatase Lactate Dehydrogenase Troponin T C-Reactive Protein Total Protein Albumin Prealbumin Triglycerides Cholesterol LDL Cholesterol Direct HDL Cholesterol Urine pH Urine WBC (Auto) Urine Creatinine Urine Total Protein Fluid Total Protein Vancomycin Trough Rheumatoid Factor Complement C4 Miscellaneous Test Crossmatch 11/21/16 11/22/16 11/22/16 23:37 04:48 05:00 WBC 29.7 H RBC 2.73 L Hgb 7.5 L Hct 24.2 L MCV MCH 27 L MCHC RDW 17.4 H Plt Count Lymph % (Auto) [place] % (Auto) Lymph # [place] # Baso # Seg Neutrophils % Seg Neuts % (Manual) Lymphocytes % (Manual) 7.0 L Monocytes % (Manual) Eosinophils % (Manual) Basophils % (Manual) Nucleated RBC % Seg Neutrophils # Seg Neutrophils # Man 15.4 H Lymphocytes # (Manual) Monocytes # (Manual) Eosinophils # (Manual) PT INR Fibrinogen dRVVT Confirm Interp Factor V Activity POC ABG pH POC ABG pCO2 24.6 L POC ABG pO2 189 H ABG pO2 ABG HCO3 ABG Base Excess ABG Hemoglobin Oxyhemoglobin Sodium Potassium Chloride Carbon Dioxide BUN Creatinine Glucose POC Glucose 65 L Lactic Acid Calcium Phosphorus Magnesium Direct Bilirubin AST ALT Alkaline Phosphatase Lactate Dehydrogenase Troponin T C-Reactive Protein Total Protein Albumin Prealbumin Triglycerides Cholesterol LDL Cholesterol Direct HDL Cholesterol Urine pH Urine WBC (Auto) Urine Creatinine Urine Total Protein Fluid Total Protein Vancomycin Trough Rheumatoid Factor Complement C4 Miscellaneous Test Crossmatch 11/22/16 11/23/16 11/23/16 05:00 03:44 04:06 WBC RBC 2.52 L Hgb 7.2 L Hct 21.5 L MCV MCH MCHC RDW 17.1 H Plt Count Lymph % (Auto) [place] % (Auto) 12.4 H Lymph # [place] # 1.4 H Baso # Seg Neutrophils % Seg Neuts % (Manual) Lymphocytes % (Manual) Monocytes % (Manual) Eosinophils % (Manual) Basophils % (Manual) Nucleated RBC % Seg Neutrophils # Seg Neutrophils # Man Lymphocytes # (Manual) Monocytes # (Manual) Eosinophils # (Manual) PT INR Fibrinogen dRVVT Confirm Interp Factor V Activity POC ABG pH 7.493 H POC ABG pCO2 29.5 L POC ABG pO2 49 L ABG pO2 ABG HCO3 ABG Base Excess ABG Hemoglobin Oxyhemoglobin Sodium 134 L Potassium Chloride 95.9 L Carbon Dioxide 14 L D BUN 51 H Creatinine 2.6 H Glucose POC Glucose Lactic Acid Calcium Phosphorus Magnesium Direct Bilirubin AST ALT Alkaline Phosphatase Lactate Dehydrogenase Troponin T C-Reactive Protein Total Protein Albumin Prealbumin Triglycerides Cholesterol LDL Cholesterol Direct HDL Cholesterol Urine pH Urine WBC (Auto) Urine Creatinine Urine Total Protein Fluid Total Protein Vancomycin Trough Rheumatoid Factor Complement C4 Miscellaneous Test Crossmatch 11/23/16 11/23/16 11/24/16 04:06 11:29 06:39 WBC RBC Hgb Hct MCV MCH MCHC RDW Plt Count Lymph % (Auto) [place] % (Auto) Lymph # [place] # Baso # Seg Neutrophils % Seg Neuts % (Manual) Lymphocytes % (Manual) Monocytes % (Manual) Eosinophils % (Manual) Basophils % (Manual) Nucleated RBC % Seg Neutrophils # Seg Neutrophils # Man Lymphocytes # (Manual) Monocytes # (Manual) Eosinophils # (Manual) PT INR Fibrinogen dRVVT Confirm Interp Factor V Activity POC ABG pH POC ABG pCO2 POC ABG pO2 ABG pO2 ABG HCO3 ABG Base Excess ABG Hemoglobin Oxyhemoglobin Sodium 136 L Potassium Chloride 95.2 L Carbon Dioxide BUN 60 H Creatinine 2.9 H Glucose POC Glucose 69 L 305 H Lactic Acid Calcium Phosphorus Magnesium 1.60 L Direct Bilirubin AST ALT Alkaline Phosphatase Lactate Dehydrogenase Troponin T C-Reactive Protein Total Protein Albumin Prealbumin Triglycerides Cholesterol LDL Cholesterol Direct HDL Cholesterol Urine pH Urine WBC (Auto) Urine Creatinine Urine Total Protein Fluid Total Protein Vancomycin Trough Rheumatoid Factor Complement C4 Miscellaneous Test Crossmatch 11/24/16 11/24/16 11/24/16 06:43 08:08 08:08 WBC 11.2 H RBC 2.47 L Hgb 6.8 L Hct 20.6 L MCV MCH MCHC RDW 17.0 H Plt Count Lymph % (Auto) [place] % (Auto) 10.3 H Lymph # [place] # 1.2 H Baso # Seg Neutrophils % Seg Neuts % (Manual) Lymphocytes % (Manual) Monocytes % (Manual) Eosinophils % (Manual) Basophils % (Manual) Nucleated RBC % Seg Neutrophils # Seg Neutrophils # Man Lymphocytes # (Manual) Monocytes # (Manual) Eosinophils # (Manual) PT INR Fibrinogen dRVVT Confirm Interp Factor V Activity POC ABG pH POC ABG pCO2 POC ABG pO2 ABG pO2 ABG HCO3 ABG Base Excess ABG Hemoglobin Oxyhemoglobin Sodium 135 L Potassium Chloride 96.3 L Carbon Dioxide BUN 61 H Creatinine 3.1 H Glucose POC Glucose 62 L Lactic Acid Calcium 8.2 L Phosphorus Magnesium Direct Bilirubin AST ALT Alkaline Phosphatase Lactate Dehydrogenase Troponin T C-Reactive Protein Total Protein Albumin Prealbumin Triglycerides Cholesterol LDL Cholesterol Direct HDL Cholesterol Urine pH Urine WBC (Auto) Urine Creatinine Urine Total Protein Fluid Total Protein Vancomycin Trough Rheumatoid Factor Complement C4 Miscellaneous Test Crossmatch 11/24/16 11/24/16 11/24/16 08:34 11:20 12:41 WBC RBC Hgb Hct MCV MCH MCHC RDW Plt Count Lymph % (Auto) [place] % (Auto) Lymph # [place] # Baso # Seg Neutrophils % Seg Neuts % (Manual) Lymphocytes % (Manual) Monocytes % (Manual) Eosinophils % (Manual) Basophils % (Manual) Nucleated RBC % Seg Neutrophils # Seg Neutrophils # Man Lymphocytes # (Manual) Monocytes # (Manual) Eosinophils # (Manual) PT INR Fibrinogen dRVVT Confirm Interp Factor V Activity POC ABG pH POC ABG pCO2 POC ABG pO2 ABG pO2 ABG HCO3 ABG Base Excess ABG Hemoglobin Oxyhemoglobin Sodium Potassium Chloride Carbon Dioxide BUN Creatinine Glucose POC Glucose 108 H Lactic Acid Calcium Phosphorus Magnesium 1.60 L Direct Bilirubin AST ALT Alkaline Phosphatase Lactate Dehydrogenase Troponin T C-Reactive Protein Total Protein Albumin Prealbumin Triglycerides Cholesterol LDL Cholesterol Direct HDL Cholesterol Urine pH Urine WBC (Auto) Urine Creatinine Urine Total Protein Fluid Total Protein Vancomycin Trough Rheumatoid Factor Complement C4 Miscellaneous Test Crossmatch See Detail 11/25/16 11/25/16 11/25/16 00:03 04:42 04:42 WBC RBC 3.03 L Hgb 8.6 L Hct 25.3 L MCV MCH MCHC RDW 16.2 H Plt Count Lymph % (Auto) [place] % (Auto) 8.1 H Lymph # [place] # Baso # Seg Neutrophils % 71.3 H Seg Neuts % (Manual) Lymphocytes % (Manual) Monocytes % (Manual) Eosinophils % (Manual) Basophils % (Manual) Nucleated RBC % Seg Neutrophils # Seg Neutrophils # Man Lymphocytes # (Manual) Monocytes # (Manual) Eosinophils # (Manual) PT INR Fibrinogen dRVVT Confirm Interp Factor V Activity POC ABG pH POC ABG pCO2 POC ABG pO2 ABG pO2 ABG HCO3 ABG Base Excess ABG Hemoglobin Oxyhemoglobin Sodium Potassium Chloride Carbon Dioxide BUN 61 H Creatinine 3.0 H Glucose 102 H POC Glucose 113 H Lactic Acid Calcium 8.2 L Phosphorus Magnesium Direct Bilirubin AST ALT Alkaline Phosphatase 142 H Lactate Dehydrogenase Troponin T C-Reactive Protein Total Protein 5.7 L Albumin 1.5 L Prealbumin Triglycerides Cholesterol LDL Cholesterol Direct HDL Cholesterol Urine pH Urine WBC (Auto) Urine Creatinine Urine Total Protein Fluid Total Protein Vancomycin Trough Rheumatoid Factor Complement C4 Miscellaneous Test Crossmatch 11/25/16 11/25/16 11/25/16 05:12 11:31 14:12 WBC RBC Hgb Hct MCV MCH MCHC RDW Plt Count Lymph % (Auto) [place] % (Auto) Lymph # [place] # Baso # Seg Neutrophils % Seg Neuts % (Manual) Lymphocytes % (Manual) Monocytes % (Manual) Eosinophils % (Manual) Basophils % (Manual) Nucleated RBC % Seg Neutrophils # Seg Neutrophils # Man Lymphocytes # (Manual) Monocytes # (Manual) Eosinophils # (Manual) PT INR Fibrinogen dRVVT Confirm Interp Factor V Activity POC ABG pH 7.487 H POC ABG pCO2 POC ABG pO2 153 H ABG pO2 ABG HCO3 ABG Base Excess ABG Hemoglobin Oxyhemoglobin Sodium Potassium Chloride Carbon Dioxide BUN Creatinine Glucose POC Glucose 131 H 140 H Lactic Acid Calcium Phosphorus Magnesium Direct Bilirubin AST ALT Alkaline Phosphatase Lactate Dehydrogenase Troponin T C-Reactive Protein Total Protein Albumin Prealbumin Triglycerides Cholesterol LDL Cholesterol Direct HDL Cholesterol Urine pH Urine WBC (Auto) Urine Creatinine Urine Total Protein Fluid Total Protein Vancomycin Trough Rheumatoid Factor Complement C4 Miscellaneous Test Crossmatch 11/25/16 11/26/16 11/26/16 17:23 00:09 05:13 WBC RBC 2.94 L Hgb 8.4 L Hct 24.6 L MCV MCH MCHC RDW 16.4 H Plt Count Lymph % (Auto) [place] % (Auto) 12.3 H Lymph # [place] # 1.1 H Baso # Seg Neutrophils % Seg Neuts % (Manual) Lymphocytes % (Manual) Monocytes % (Manual) Eosinophils % (Manual) Basophils % (Manual) Nucleated RBC % Seg Neutrophils # Seg Neutrophils # Man Lymphocytes # (Manual) Monocytes # (Manual) Eosinophils # (Manual) PT INR Fibrinogen dRVVT Confirm Interp Factor V Activity POC ABG pH POC ABG pCO2 POC ABG pO2 ABG pO2 ABG HCO3 ABG Base Excess ABG Hemoglobin Oxyhemoglobin Sodium Potassium Chloride Carbon Dioxide BUN Creatinine Glucose POC Glucose 146 H 112 H Lactic Acid Calcium Phosphorus Magnesium Direct Bilirubin AST ALT Alkaline Phosphatase Lactate Dehydrogenase Troponin T C-Reactive Protein Total Protein Albumin Prealbumin Triglycerides Cholesterol LDL Cholesterol Direct HDL Cholesterol Urine pH Urine WBC (Auto) Urine Creatinine Urine Total Protein Fluid Total Protein Vancomycin Trough Rheumatoid Factor Complement C4 Miscellaneous Test Crossmatch 11/26/16 11/26/16 11/26/16 05:13 05:28 11:53 WBC RBC Hgb Hct MCV MCH MCHC RDW Plt Count Lymph % (Auto) [place] % (Auto) Lymph # [place] # Baso # Seg Neutrophils % Seg Neuts % (Manual) Lymphocytes % (Manual) Monocytes % (Manual) Eosinophils % (Manual) Basophils % (Manual) Nucleated RBC % Seg Neutrophils # Seg Neutrophils # Man Lymphocytes # (Manual) Monocytes # (Manual) Eosinophils # (Manual) PT INR Fibrinogen dRVVT Confirm Interp Factor V Activity POC ABG pH POC ABG pCO2 POC ABG pO2 ABG pO2 ABG HCO3 ABG Base Excess ABG Hemoglobin Oxyhemoglobin Sodium Potassium Chloride 97.8 L Carbon Dioxide BUN 37 H Creatinine 2.0 H Glucose 109 H POC Glucose 117 H 111 H Lactic Acid Calcium 7.9 L Phosphorus 1.80 L D Magnesium Direct Bilirubin AST ALT Alkaline Phosphatase Lactate Dehydrogenase Troponin T C-Reactive Protein Total Protein Albumin Prealbumin Triglycerides Cholesterol LDL Cholesterol Direct HDL Cholesterol Urine pH Urine WBC (Auto) Urine Creatinine Urine Total Protein Fluid Total Protein Vancomycin Trough Rheumatoid Factor Complement C4 Miscellaneous Test Crossmatch 11/26/16 11/27/16 11/27/16 17:14 04:50 06:02 WBC RBC Hgb Hct MCV MCH MCHC RDW Plt Count Lymph % (Auto) [place] % (Auto) Lymph # [place] # Baso # Seg Neutrophils % Seg Neuts % (Manual) Lymphocytes % (Manual) Monocytes % (Manual) Eosinophils % (Manual) Basophils % (Manual) Nucleated RBC % Seg Neutrophils # Seg Neutrophils # Man Lymphocytes # (Manual) Monocytes # (Manual) Eosinophils # (Manual) PT INR Fibrinogen dRVVT Confirm Interp Factor V Activity POC ABG pH POC ABG pCO2 POC ABG pO2 ABG pO2 75.2 L ABG HCO3 26.4 H ABG Base Excess ABG Hemoglobin 7.6 L Oxyhemoglobin 94.8 L Sodium Potassium Chloride Carbon Dioxide BUN 49 H Creatinine 2.3 H Glucose POC Glucose 115 H Lactic Acid Calcium Phosphorus 1.50 L Magnesium Direct Bilirubin AST ALT Alkaline Phosphatase Lactate Dehydrogenase Troponin T C-Reactive Protein Total Protein Albumin Prealbumin Triglycerides Cholesterol LDL Cholesterol Direct HDL Cholesterol Urine pH Urine WBC (Auto) Urine Creatinine Urine Total Protein Fluid Total Protein Vancomycin Trough Rheumatoid Factor Complement C4 Miscellaneous Test Crossmatch 11/27/16 11/27/16 11/27/16 06:02 11:25 17:25 WBC 11.6 H RBC 2.75 L Hgb 7.6 L Hct 23.4 L MCV MCH MCHC RDW 16.5 H Plt Count Lymph % (Auto) [place] % (Auto) Lymph # [place] # Baso # Seg Neutrophils % Seg Neuts % (Manual) Lymphocytes % (Manual) Monocytes % (Manual) Eosinophils % (Manual) Basophils % (Manual) Nucleated RBC % Seg Neutrophils # Seg Neutrophils # Man Lymphocytes # (Manual) Monocytes # (Manual) Eosinophils # (Manual) PT INR Fibrinogen dRVVT Confirm Interp Factor V Activity POC ABG pH POC ABG pCO2 POC ABG pO2 ABG pO2 ABG HCO3 ABG Base Excess ABG Hemoglobin Oxyhemoglobin Sodium Potassium Chloride Carbon Dioxide BUN Creatinine Glucose POC Glucose 114 H 126 H Lactic Acid Calcium Phosphorus Magnesium Direct Bilirubin AST ALT Alkaline Phosphatase Lactate Dehydrogenase Troponin T C-Reactive Protein Total Protein Albumin Prealbumin Triglycerides Cholesterol LDL Cholesterol Direct HDL Cholesterol Urine pH Urine WBC (Auto) Urine Creatinine Urine Total Protein Fluid Total Protein Vancomycin Trough Rheumatoid Factor Complement C4 Miscellaneous Test Crossmatch 11/28/16 11/28/16 11/28/16 04:45 05:33 05:44 WBC RBC Hgb Hct MCV MCH MCHC RDW Plt Count Lymph % (Auto) [place] % (Auto) Lymph # [place] # Baso # Seg Neutrophils % Seg Neuts % (Manual) Lymphocytes % (Manual) Monocytes % (Manual) Eosinophils % (Manual) Basophils % (Manual) Nucleated RBC % Seg Neutrophils # Seg Neutrophils # Man Lymphocytes # (Manual) Monocytes # (Manual) Eosinophils # (Manual) PT INR Fibrinogen dRVVT Confirm Interp Factor V Activity POC ABG pH POC ABG pCO2 POC ABG pO2 ABG pO2 99.3 H ABG HCO3 ABG Base Excess ABG Hemoglobin 8.3 L Oxyhemoglobin Sodium Potassium Chloride Carbon Dioxide BUN 63 H Creatinine 2.4 H Glucose 102 H POC Glucose 108 H Lactic Acid Calcium Phosphorus 1.80 L Magnesium Direct Bilirubin AST ALT Alkaline Phosphatase Lactate Dehydrogenase Troponin T C-Reactive Protein Total Protein Albumin Prealbumin Triglycerides Cholesterol LDL Cholesterol Direct HDL Cholesterol Urine pH Urine WBC (Auto) Urine Creatinine Urine Total Protein Fluid Total Protein Vancomycin Trough Rheumatoid Factor Complement C4 Miscellaneous Test Crossmatch 11/28/16 11/28/16 11/28/16 12:31 16:09 23:46 WBC RBC Hgb Hct MCV MCH MCHC RDW Plt Count Lymph % (Auto) [place] % (Auto) Lymph # [place] # Baso # Seg Neutrophils % Seg Neuts % (Manual) Lymphocytes % (Manual) Monocytes % (Manual) Eosinophils % (Manual) Basophils % (Manual) Nucleated RBC % Seg Neutrophils # Seg Neutrophils # Man Lymphocytes # (Manual) Monocytes # (Manual) Eosinophils # (Manual) PT INR Fibrinogen dRVVT Confirm Interp Factor V Activity POC ABG pH POC ABG pCO2 POC ABG pO2 ABG pO2 ABG HCO3 ABG Base Excess ABG Hemoglobin Oxyhemoglobin Sodium Potassium Chloride Carbon Dioxide BUN Creatinine Glucose POC Glucose 126 H 111 H 119 H Lactic Acid Calcium Phosphorus Magnesium Direct Bilirubin AST ALT Alkaline Phosphatase Lactate Dehydrogenase Troponin T C-Reactive Protein Total Protein Albumin Prealbumin Triglycerides Cholesterol LDL Cholesterol Direct HDL Cholesterol Urine pH Urine WBC (Auto) Urine Creatinine Urine Total Protein Fluid Total Protein Vancomycin Trough Rheumatoid Factor Complement C4 Miscellaneous Test Crossmatch 11/29/16 11/29/16 11/29/16 03:33 04:52 05:10 WBC RBC Hgb Hct MCV MCH MCHC RDW Plt Count Lymph % (Auto) [place] % (Auto) Lymph # [place] # Baso # Seg Neutrophils % Seg Neuts % (Manual) Lymphocytes % (Manual) Monocytes % (Manual) Eosinophils % (Manual) Basophils % (Manual) Nucleated RBC % Seg Neutrophils # Seg Neutrophils # Man Lymphocytes # (Manual) Monocytes # (Manual) Eosinophils # (Manual) PT INR Fibrinogen dRVVT Confirm Interp Factor V Activity POC ABG pH POC ABG pCO2 POC ABG pO2 ABG pO2 ABG HCO3 ABG Base Excess ABG Hemoglobin 7.0 L Oxyhemoglobin 94.9 L Sodium Potassium Chloride Carbon Dioxide BUN 73 H Creatinine 2.7 H Glucose POC Glucose 108 H Lactic Acid Calcium Phosphorus Magnesium Direct Bilirubin AST ALT Alkaline Phosphatase Lactate Dehydrogenase Troponin T C-Reactive Protein Total Protein Albumin Prealbumin Triglycerides Cholesterol LDL Cholesterol Direct HDL Cholesterol Urine pH Urine WBC (Auto) Urine Creatinine Urine Total Protein Fluid Total Protein Vancomycin Trough Rheumatoid Factor Complement C4 Miscellaneous Test Crossmatch 11/29/16 11/29/16 11/29/16 12:16 18:05 23:46 WBC RBC Hgb Hct MCV MCH MCHC RDW Plt Count Lymph % (Auto) [place] % (Auto) Lymph # [place] # Baso # Seg Neutrophils % Seg Neuts % (Manual) Lymphocytes % (Manual) Monocytes % (Manual) Eosinophils % (Manual) Basophils % (Manual) Nucleated RBC % Seg Neutrophils # Seg Neutrophils # Man Lymphocytes # (Manual) Monocytes # (Manual) Eosinophils # (Manual) PT INR Fibrinogen dRVVT Confirm Interp Factor V Activity POC ABG pH POC ABG pCO2 POC ABG pO2 ABG pO2 ABG HCO3 ABG Base Excess ABG Hemoglobin Oxyhemoglobin Sodium Potassium Chloride Carbon Dioxide BUN Creatinine Glucose POC Glucose 133 H 146 H 141 H Lactic Acid Calcium Phosphorus Magnesium Direct Bilirubin AST ALT Alkaline Phosphatase Lactate Dehydrogenase Troponin T C-Reactive Protein Total Protein Albumin Prealbumin Triglycerides Cholesterol LDL Cholesterol Direct HDL Cholesterol Urine pH Urine WBC (Auto) Urine Creatinine Urine Total Protein Fluid Total Protein Vancomycin Trough Rheumatoid Factor Complement C4 Miscellaneous Test Crossmatch 11/30/16 11/30/16 11/30/16 04:17 04:17 04:32 WBC 12.0 H RBC 2.80 L Hgb 7.8 L Hct 23.6 L MCV MCH MCHC RDW 16.6 H Plt Count Lymph % (Auto) [place] % (Auto) 11.3 H Lymph # [place] # 1.4 H Baso # Seg Neutrophils % Seg Neuts % (Manual) Lymphocytes % (Manual) Monocytes % (Manual) Eosinophils % (Manual) Basophils % (Manual) Nucleated RBC % Seg Neutrophils # 8.2 H Seg Neutrophils # Man Lymphocytes # (Manual) Monocytes # (Manual) Eosinophils # (Manual) PT INR Fibrinogen dRVVT Confirm Interp Factor V Activity POC ABG pH POC ABG pCO2 POC ABG pO2 ABG pO2 ABG HCO3 ABG Base Excess ABG Hemoglobin Oxyhemoglobin Sodium 169 H* D Potassium 5.1 H Chloride 121.5 H Carbon Dioxide BUN 34 H Creatinine 1.3 H D Glucose 133 H POC Glucose 131 H Lactic Acid Calcium 10.3 H Phosphorus Magnesium Direct Bilirubin AST ALT Alkaline Phosphatase Lactate Dehydrogenase Troponin T C-Reactive Protein Total Protein Albumin Prealbumin Triglycerides Cholesterol LDL Cholesterol Direct HDL Cholesterol Urine pH Urine WBC (Auto) Urine Creatinine Urine Total Protein Fluid Total Protein Vancomycin Trough Rheumatoid Factor Complement C4 Miscellaneous Test Crossmatch 11/30/16 11/30/16 11/30/16 05:45 11:10 17:26 WBC RBC Hgb Hct MCV MCH MCHC RDW Plt Count Lymph % (Auto) [place] % (Auto) Lymph # [place] # Baso # Seg Neutrophils % Seg Neuts % (Manual) Lymphocytes % (Manual) Monocytes % (Manual) Eosinophils % (Manual) Basophils % (Manual) Nucleated RBC % Seg Neutrophils # Seg Neutrophils # Man Lymphocytes # (Manual) Monocytes # (Manual) Eosinophils # (Manual) PT INR Fibrinogen dRVVT Confirm Interp Factor V Activity POC ABG pH POC ABG pCO2 POC ABG pO2 ABG pO2 ABG HCO3 ABG Base Excess ABG Hemoglobin Oxyhemoglobin Sodium Potassium Chloride Carbon Dioxide BUN 45 H Creatinine 1.6 H Glucose 131 H POC Glucose 146 H 134 H Lactic Acid Calcium Phosphorus Magnesium Direct Bilirubin AST ALT Alkaline Phosphatase Lactate Dehydrogenase Troponin T C-Reactive Protein Total Protein Albumin Prealbumin Triglycerides Cholesterol LDL Cholesterol Direct HDL Cholesterol Urine pH Urine WBC (Auto) Urine Creatinine Urine Total Protein Fluid Total Protein Vancomycin Trough Rheumatoid Factor Complement C4 Miscellaneous Test Crossmatch 11/30/16 12/01/16 12/01/16 23:35 00:06 03:35 WBC RBC Hgb Hct MCV MCH MCHC RDW Plt Count Lymph % (Auto) [place] % (Auto) Lymph # [place] # Baso # Seg Neutrophils % Seg Neuts % (Manual) Lymphocytes % (Manual) Monocytes % (Manual) Eosinophils % (Manual) Basophils % (Manual) Nucleated RBC % Seg Neutrophils # Seg Neutrophils # Man Lymphocytes # (Manual) Monocytes # (Manual) Eosinophils # (Manual) PT INR Fibrinogen dRVVT Confirm Interp Factor V Activity POC ABG pH POC ABG pCO2 POC ABG pO2 ABG pO2 ABG HCO3 ABG Base Excess ABG Hemoglobin 6.9 L Oxyhemoglobin Sodium Potassium Chloride Carbon Dioxide BUN 58 H Creatinine 1.8 H Glucose 146 H POC Glucose 151 H Lactic Acid Calcium Phosphorus Magnesium Direct Bilirubin AST ALT Alkaline Phosphatase Lactate Dehydrogenase Troponin T C-Reactive Protein Total Protein Albumin Prealbumin Triglycerides Cholesterol LDL Cholesterol Direct HDL Cholesterol Urine pH Urine WBC (Auto) Urine Creatinine Urine Total Protein Fluid Total Protein Vancomycin Trough Rheumatoid Factor Complement C4 Miscellaneous Test Crossmatch 12/01/16 12/01/16 12/01/16 03:35 05:47 11:52 WBC 12.3 H RBC 2.82 L Hgb 7.8 L Hct 23.7 L MCV MCH MCHC RDW 16.7 H Plt Count Lymph % (Auto) [place] % (Auto) 9.8 H Lymph # [place] # 1.2 H Baso # Seg Neutrophils % Seg Neuts % (Manual) Lymphocytes % (Manual) Monocytes % (Manual) Eosinophils % (Manual) Basophils % (Manual) Nucleated RBC % Seg Neutrophils # 8.4 H Seg Neutrophils # Man Lymphocytes # (Manual) Monocytes # (Manual) Eosinophils # (Manual) PT INR Fibrinogen dRVVT Confirm Interp Factor V Activity POC ABG pH POC ABG pCO2 POC ABG pO2 ABG pO2 ABG HCO3 ABG Base Excess ABG Hemoglobin Oxyhemoglobin Sodium Potassium Chloride Carbon Dioxide BUN Creatinine Glucose POC Glucose 152 H 152 H Lactic Acid Calcium Phosphorus Magnesium Direct Bilirubin AST ALT Alkaline Phosphatase Lactate Dehydrogenase Troponin T C-Reactive Protein Total Protein Albumin Prealbumin Triglycerides Cholesterol LDL Cholesterol Direct HDL Cholesterol Urine pH Urine WBC (Auto) Urine Creatinine Urine Total Protein Fluid Total Protein Vancomycin Trough Rheumatoid Factor Complement C4 Miscellaneous Test Crossmatch 12/01/16 12/01/16 12/02/16 17:40 23:41 05:00 WBC RBC Hgb Hct MCV MCH MCHC RDW Plt Count Lymph % (Auto) [place] % (Auto) Lymph # [place] # Baso # Seg Neutrophils % Seg Neuts % (Manual) Lymphocytes % (Manual) Monocytes % (Manual) Eosinophils % (Manual) Basophils % (Manual) Nucleated RBC % Seg Neutrophils # Seg Neutrophils # Man Lymphocytes # (Manual) Monocytes # (Manual) Eosinophils # (Manual) PT INR Fibrinogen dRVVT Confirm Interp Factor V Activity POC ABG pH POC ABG pCO2 POC ABG pO2 ABG pO2 ABG HCO3 ABG Base Excess ABG Hemoglobin Oxyhemoglobin Sodium Potassium Chloride Carbon Dioxide BUN 45 H Creatinine Glucose 115 H POC Glucose 140 H 144 H Lactic Acid Calcium Phosphorus Magnesium Direct Bilirubin AST ALT Alkaline Phosphatase Lactate Dehydrogenase Troponin T C-Reactive Protein Total Protein Albumin Prealbumin Triglycerides Cholesterol LDL Cholesterol Direct HDL Cholesterol Urine pH Urine WBC (Auto) Urine Creatinine Urine Total Protein Fluid Total Protein Vancomycin Trough Rheumatoid Factor Complement C4 Miscellaneous Test Crossmatch 12/02/16 12/02/16 12/02/16 05:31 11:20 17:38 WBC RBC Hgb Hct MCV MCH MCHC RDW Plt Count Lymph % (Auto) [place] % (Auto) Lymph # [place] # Baso # Seg Neutrophils % Seg Neuts % (Manual) Lymphocytes % (Manual) Monocytes % (Manual) Eosinophils % (Manual) Basophils % (Manual) Nucleated RBC % Seg Neutrophils # Seg Neutrophils # Man Lymphocytes # (Manual) Monocytes # (Manual) Eosinophils # (Manual) PT INR Fibrinogen dRVVT Confirm Interp Factor V Activity POC ABG pH POC ABG pCO2 POC ABG pO2 ABG pO2 ABG HCO3 ABG Base Excess ABG Hemoglobin Oxyhemoglobin Sodium Potassium Chloride Carbon Dioxide BUN Creatinine Glucose POC Glucose 136 H 177 H 139 H Lactic Acid Calcium Phosphorus Magnesium Direct Bilirubin AST ALT Alkaline Phosphatase Lactate Dehydrogenase Troponin T C-Reactive Protein Total Protein Albumin Prealbumin Triglycerides Cholesterol LDL Cholesterol Direct HDL Cholesterol Urine pH Urine WBC (Auto) Urine Creatinine Urine Total Protein Fluid Total Protein Vancomycin Trough Rheumatoid Factor Complement C4 Miscellaneous Test Crossmatch 12/02/16 12/03/16 12/03/16 23:43 04:00 04:00 WBC 20.4 H RBC 2.74 L Hgb 7.4 L Hct 23.6 L MCV MCH 27 L MCHC RDW 17.1 H Plt Count Lymph % (Auto) [place] % (Auto) Lymph # [place] # Baso # Seg Neutrophils % Seg Neuts % (Manual) 31.0 L Lymphocytes % (Manual) Monocytes % (Manual) Eosinophils % (Manual) Basophils % (Manual) Nucleated RBC % Seg Neutrophils # Seg Neutrophils # Man Lymphocytes # (Manual) Monocytes # (Manual) Eosinophils # (Manual) PT INR Fibrinogen dRVVT Confirm Interp Factor V Activity POC ABG pH POC ABG pCO2 POC ABG pO2 ABG pO2 ABG HCO3 ABG Base Excess ABG Hemoglobin Oxyhemoglobin Sodium Potassium Chloride Carbon Dioxide BUN 61 H Creatinine 1.6 H Glucose 119 H POC Glucose 158 H Lactic Acid Calcium Phosphorus Magnesium Direct Bilirubin AST ALT Alkaline Phosphatase Lactate Dehydrogenase Troponin T C-Reactive Protein Total Protein Albumin Prealbumin Triglycerides Cholesterol LDL Cholesterol Direct HDL Cholesterol Urine pH Urine WBC (Auto) Urine Creatinine Urine Total Protein Fluid Total Protein Vancomycin Trough Rheumatoid Factor Complement C4 Miscellaneous Test Crossmatch 12/03/16 12/03/16 12/03/16 05:02 12:11 18:16 WBC RBC Hgb Hct MCV MCH MCHC RDW Plt Count Lymph % (Auto) [place] % (Auto) Lymph # [place] # Baso # Seg Neutrophils % Seg Neuts % (Manual) Lymphocytes % (Manual) Monocytes % (Manual) Eosinophils % (Manual) Basophils % (Manual) Nucleated RBC % Seg Neutrophils # Seg Neutrophils # Man Lymphocytes # (Manual) Monocytes # (Manual) Eosinophils # (Manual) PT INR Fibrinogen dRVVT Confirm Interp Factor V Activity POC ABG pH POC ABG pCO2 POC ABG pO2 ABG pO2 ABG HCO3 ABG Base Excess ABG Hemoglobin Oxyhemoglobin Sodium Potassium Chloride Carbon Dioxide BUN Creatinine Glucose POC Glucose 146 H 157 H 124 H Lactic Acid Calcium Phosphorus Magnesium Direct Bilirubin AST ALT Alkaline Phosphatase Lactate Dehydrogenase Troponin T C-Reactive Protein Total Protein Albumin Prealbumin Triglycerides Cholesterol LDL Cholesterol Direct HDL Cholesterol Urine pH Urine WBC (Auto) Urine Creatinine Urine Total Protein Fluid Total Protein Vancomycin Trough Rheumatoid Factor Complement C4 Miscellaneous Test Crossmatch 12/03/16 12/04/16 12/04/16 23:41 04:00 04:45 WBC RBC Hgb Hct MCV MCH MCHC RDW Plt Count Lymph % (Auto) [place] % (Auto) Lymph # [place] # Baso # Seg Neutrophils % Seg Neuts % (Manual) Lymphocytes % (Manual) Monocytes % (Manual) Eosinophils % (Manual) Basophils % (Manual) Nucleated RBC % Seg Neutrophils # Seg Neutrophils # Man Lymphocytes # (Manual) Monocytes # (Manual) Eosinophils # (Manual) PT INR Fibrinogen dRVVT Confirm Interp Factor V Activity POC ABG pH POC ABG pCO2 POC ABG pO2 ABG pO2 ABG HCO3 ABG Base Excess ABG Hemoglobin Oxyhemoglobin Sodium Potassium Chloride Carbon Dioxide BUN 76 H Creatinine 1.6 H Glucose POC Glucose 130 H 136 H Lactic Acid Calcium Phosphorus Magnesium Direct Bilirubin AST ALT Alkaline Phosphatase 155 H Lactate Dehydrogenase Troponin T C-Reactive Protein Total Protein 5.5 L Albumin 1.5 L Prealbumin Triglycerides Cholesterol LDL Cholesterol Direct HDL Cholesterol Urine pH Urine WBC (Auto) Urine Creatinine Urine Total Protein Fluid Total Protein Vancomycin Trough Rheumatoid Factor Complement C4 Miscellaneous Test Crossmatch 12/04/16 12/04/16 12/05/16 12:08 17:23 00:10 WBC RBC Hgb Hct MCV MCH MCHC RDW Plt Count Lymph % (Auto) [place] % (Auto) Lymph # [place] # Baso # Seg Neutrophils % Seg Neuts % (Manual) Lymphocytes % (Manual) Monocytes % (Manual) Eosinophils % (Manual) Basophils % (Manual) Nucleated RBC % Seg Neutrophils # Seg Neutrophils # Man Lymphocytes # (Manual) Monocytes # (Manual) Eosinophils # (Manual) PT INR Fibrinogen dRVVT Confirm Interp Factor V Activity POC ABG pH POC ABG pCO2 POC ABG pO2 ABG pO2 ABG HCO3 ABG Base Excess ABG Hemoglobin Oxyhemoglobin Sodium Potassium Chloride Carbon Dioxide BUN Creatinine Glucose POC Glucose 114 H 129 H 124 H Lactic Acid Calcium Phosphorus Magnesium Direct Bilirubin AST ALT Alkaline Phosphatase Lactate Dehydrogenase Troponin T C-Reactive Protein Total Protein Albumin Prealbumin Triglycerides Cholesterol LDL Cholesterol Direct HDL Cholesterol Urine pH Urine WBC (Auto) Urine Creatinine Urine Total Protein Fluid Total Protein Vancomycin Trough Rheumatoid Factor Complement C4 Miscellaneous Test Crossmatch 12/05/16 12/05/16 12/05/16 05:00 05:18 11:43 WBC RBC Hgb Hct MCV MCH MCHC RDW Plt Count Lymph % (Auto) [place] % (Auto) Lymph # [place] # Baso # Seg Neutrophils % Seg Neuts % (Manual) Lymphocytes % (Manual) Monocytes % (Manual) Eosinophils % (Manual) Basophils % (Manual) Nucleated RBC % Seg Neutrophils # Seg Neutrophils # Man Lymphocytes # (Manual) Monocytes # (Manual) Eosinophils # (Manual) PT INR Fibrinogen dRVVT Confirm Interp Factor V Activity POC ABG pH POC ABG pCO2 POC ABG pO2 ABG pO2 ABG HCO3 ABG Base Excess ABG Hemoglobin Oxyhemoglobin Sodium Potassium Chloride Carbon Dioxide 21 L BUN 85 H Creatinine 1.9 H Glucose 131 H POC Glucose 154 H 117 H Lactic Acid Calcium Phosphorus Magnesium Direct Bilirubin AST ALT Alkaline Phosphatase Lactate Dehydrogenase Troponin T C-Reactive Protein Total Protein Albumin Prealbumin Triglycerides Cholesterol LDL Cholesterol Direct HDL Cholesterol Urine pH Urine WBC (Auto) Urine Creatinine Urine Total Protein Fluid Total Protein Vancomycin Trough Rheumatoid Factor Complement C4 Miscellaneous Test Crossmatch 12/05/16 Unknown WBC RBC Hgb Hct MCV MCH MCHC RDW Plt Count Lymph % (Auto) [place] % (Auto) Lymph # [place] # Baso # Seg Neutrophils % Seg Neuts % (Manual) Lymphocytes % (Manual) Monocytes % (Manual) Eosinophils % (Manual) Basophils % (Manual) Nucleated RBC % Seg Neutrophils # Seg Neutrophils # Man Lymphocytes # (Manual) Monocytes # (Manual) Eosinophils # (Manual) PT INR Fibrinogen dRVVT Confirm Interp Factor V Activity POC ABG pH POC ABG pCO2 POC ABG pO2 ABG pO2 75.2 L ABG HCO3 ABG Base Excess -3.4 L ABG Hemoglobin 7.4 L Oxyhemoglobin 94.5 L Sodium Potassium Chloride Carbon Dioxide BUN Creatinine Glucose POC Glucose Lactic Acid Calcium Phosphorus Magnesium Direct Bilirubin AST ALT Alkaline Phosphatase Lactate Dehydrogenase Troponin T C-Reactive Protein Total Protein Albumin Prealbumin Triglycerides Cholesterol LDL Cholesterol Direct HDL Cholesterol Urine pH Urine WBC (Auto) Urine Creatinine Urine Total Protein Fluid Total Protein Vancomycin Trough Rheumatoid Factor Complement C4 Miscellaneous Test Crossmatch Allied health notes reviewed: RT
[2016-12-05] MEDS: TRANSDERM-SCOP TD SCH (14:09)
--- NOTE | 2016-12-05 16:55 | Progress Note ---
Assessment and Plan Assessment and plan: Patient is 46-year-old woman with a history of hypertension, diabetes, asthma, hyperlipidemia, chronic kidney disease and anxiety , who was brought in by family because, she couldn't get her words out, her face was also twisted, she was admitted for acute CVA and accelerated hypertension, she had a hx of poor adherence with her medications, and uncontrolled htn. Patient's SBP on admission was noted be greater than 260. TPA was started but this was discontinued after 5 minutes because her blood pressure became uncontrolled. The TPA was not initiated again because the patient was outside the TPA window. Status post cardiac arrest , 11/21/16 - Received CPR and was resuscitated. Fever - resolved - Antibiotic discontinued today per ID - s/p R thoracentesis on 11/14, 240cc of serous fluid removed, cx of fluid was negative - Stool negative for C. difficile Severe Sepsis with septic shock - Resolving Surgical wound infection/gram-negative sepsis/candidemia/peritonitis - PEG has been removed and pus is drained from the PEG site - Currently on tube feeding -continue wound care to ostomy sites JUANITA, ESRD - on HD per nephrology Acute CVA with infarct - Neurology input appreciated - CT shows continued evolution of left MCA infarct with slight mass effect and edema, and there is no hemorrhage - PRINCE showed hyperdynamic with ef of 75%, neither clot nor septal defect seen - MRA Brain shows near complete occlusion of M2 and M3 of the left MCA - Repeat CT scan done on 09/11, shows stable findings - carotid doppler negative - Echo shows preserved systolic function but does show some left ventricular diastolic dysfunction - continue asa and statin Persistent vegetative state - This patient's needs placement at SNF - She was denied for LTACH Acute hypoxic respiratory failure requiring MV >96hrs - Status post tracheostomy, was on T piece Nosocomial acquired aspiration pneumonia/sepsis/UTI - Recurrent - Vancomycin D/nolvia today as scheduled by ID Asthma/COPD exacerbation - ON trach, mechanical ventilation Acute Toxic Metabolic encephalopathy. - Multitifactorial, mostly secondary to evolution of CVA Bilateral pleural effusion, s/p right thoracentesis 11/14 - fluid analysis cw transudate Paroxysmal atrial fibrillation with rapid ventricular rate and hyper-coaguable state - failed cardioversion - Continue current medications, Not a candidate for anticoagulation secondary to anemia, thrombocytopenia, and massive CVA Diabetes type 2. Continue sliding-scale regular insulin and Accu-Cheks. Hyperlipidemia. Continue statin Nutrition - continue tube feeds Anemia requiring multiple transfusions/acute blood loss - Has received total 14 units of PRBC this admission. Will continue to transfuse to keep Hemoglobin above 7 - Hemoglobin 7.8 Per the Matrix Supervisor patient's were explained the disease situation yesterday by Dr Lopez and they refused hospice. Have been explained by the hospitalist group and the director of philanthropy about the poor prognosis of the patient but the family said she may made it and refused. Will talk to them at the end of the week. Disposition. Very poor prognosis. The high probability of a clinically significant, sudden or life threatening deterioration of the [neurologic, CV] system(s) required my full and direct attention, intervention and personal management. The aggregate critical care time was [34] minutes. This time is in addition to time spent performing reported procedures but includes the following: [x] Data Review and interpretation [x] Patient assessment and monitoring of vital signs [x] Documentation [x] Medication orders and management History Interval history: Patient was seen and evaluated this morning, patient is in persistent vegetative state. 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 Hospitalist Physical - Physical exam Narrative exam: Patient is on mechanical ventilation Vital signs as documented. Head exam is unremarkable. No scleral icterus . Neck is without jugular venous distension, thyromegaly, or carotid bruits. Lungs are clear to auscultation. Cardiac exam reveals regular rate and Rhythm. First and second heart sounds normal. No murmurs, rubs or gallops. Abdominal exam reveals abscess draining from the PEG site, and multiple fistulas around the stomach. Extremities are nonedematous and both femoral and pedal pulses are normal. [employer]: comatose - Constitutional Vitals: Temp Pulse Resp BP Pulse Ox 99.2 F 104 H 19 135/80 100 12/05/16 16:00 12/05/16 16:32 12/05/16 15:30 12/05/16 16:32 12/05/16 16:32 General appearance: Present: no acute distress Results - Labs CBC & Chem 7: 12/03/16 04:00 12/05/16 05:00 Labs: Laboratory Last Values WBC 20.4 K/mm3 (4.5-11.0) H 12/03/16 04:00 RBC 2.74 M/mm3 (3.65-5.03) L 12/03/16 04:00 Hgb 7.4 gm/dl (10.1-14.3) L 12/03/16 04:00 Hct 23.6 % (30.3-42.9) L 12/03/16 04:00 MCV 86 fl (79-97) 12/03/16 04:00 MCH 27 pg (28-32) L 12/03/16 04:00 MCHC 31 % (30-34) 12/03/16 04:00 RDW 17.1 % (13.2-15.2) H 12/03/16 04:00 Plt Count 335 K/mm3 (140-440) 12/03/16 04:00 Lymph % (Auto) 19.6 % (13.4-35.0) 12/01/16 03:35 [place] % (Auto) 9.8 % (0.0-7.3) H 12/01/16 03:35 Eos % (Auto) 1.5 % (0.0-4.3) 12/01/16 03:35 Baso % (Auto) 0.3 % (0.0-1.8) 12/01/16 03:35 Lymph # 2.4 K/mm3 (1.2-5.4) 12/01/16 03:35 [place] # 1.2 K/mm3 (0.0-0.8) H 12/01/16 03:35 Eos # 0.2 K/mm3 (0.0-0.4) 12/01/16 03:35 Baso # 0.0 K/mm3 (0.0-0.1) 12/01/16 03:35 Add Manual Diff Complete 12/03/16 04:00 Total Counted 100 12/03/16 04:00 Seg Neutrophils % 68.8 % (40.0-70.0) 12/01/16 03:35 Seg Neuts % (Manual) 31.0 % (40.0-70.0) L 12/03/16 04:00 Band Neutrophils % 39.0 % 12/03/16 04:00 Lymphocytes % (Manual) 22.0 % (13.4-35.0) 12/03/16 04:00 Reactive Lymphs % (Man) 0 % 12/03/16 04:00 Monocytes % (Manual) 3.0 % (0.0-7.3) 12/03/16 04:00 Eosinophils % (Manual) 1.0 % (0.0-4.3) 12/03/16 04:00 Basophils % (Manual) 0 % (0.0-1.8) 12/03/16 04:00 Metamyelocytes % 4.0 % 12/03/16 04:00 Myelocytes % 0 % 12/03/16 04:00 Promyelocytes % 0 % 12/03/16 04:00 Blast Cells % 0 % 12/03/16 04:00 Nucleated RBC % Not Reportable 12/03/16 04:00 Seg Neutrophils # 8.4 K/mm3 (1.8-7.7) H 12/01/16 03:35 Seg Neutrophils # Man 6.3 K/mm3 (1.8-7.7) 12/03/16 04:00 Band Neutrophils # 8.0 K/mm3 12/03/16 04:00 Lymphocytes # (Manual) 4.5 K/mm3 (1.2-5.4) 12/03/16 04:00 Abs React Lymphs (Man) 0.0 K/mm3 12/03/16 04:00 Monocytes # (Manual) 0.6 K/mm3 (0.0-0.8) 12/03/16 04:00 Eosinophils # (Manual) 0.2 K/mm3 (0.0-0.4) 12/03/16 04:00 Basophils # (Manual) 0.0 K/mm3 (0.0-0.1) 12/03/16 04:00 Metamyelocytes # 0.8 K/mm3 12/03/16 04:00 Myelocytes # 0.0 K/mm3 12/03/16 04:00 Promyelocytes # 0.0 K/mm3 12/03/16 04:00 Blast Cells # 0.0 K/mm3 12/03/16 04:00 Pathologist Review 09/13/16 04:00 WBC Morphology Not Reportable 12/03/16 04:00 Hypersegmented Neuts Not Reportable 12/03/16 04:00 Hyposegmented Neuts Not Reportable 12/03/16 04:00 Hypogranular Neuts Not Reportable 12/03/16 04:00 Smudge Cells Not Reportable 12/03/16 04:00 Toxic Granulation Not Reportable 12/03/16 04:00 Toxic Vacuolation Not Reportable 12/03/16 04:00 Dohle Bodies Rare 12/03/16 04:00 Pelger-Huet Anomaly Not Reportable 12/03/16 04:00 Jasmina Rods Not Reportable 12/03/16 04:00 Platelet Estimate Appears normal 12/03/16 04:00 Clumped Platelets Not Reportable 12/03/16 04:00 Plt Clumps, EDTA Not Reportable 12/03/16 04:00 Large Platelets Not Reportable 12/03/16 04:00 Giant Platelets Not Reportable 12/03/16 04:00 Platelet Satelliting Not Reportable 12/03/16 04:00 Plt Morphology Comment Not Reportable 12/03/16 04:00 RBC Morphology Not Reportable 12/03/16 04:00 Dimorphic RBCs Not Reportable 12/03/16 04:00 Polychromasia Few 12/03/16 04:00 Hypochromasia 1+ 12/03/16 04:00 Poikilocytosis Not Reportable 12/03/16 04:00 Anisocytosis 1+ 12/03/16 04:00 Microcytosis Not Reportable 12/03/16 04:00 Macrocytosis Not Reportable 12/03/16 04:00 Spherocytes Not Reportable 12/03/16 04:00 Pappenheimer Bodies Not Reportable 12/03/16 04:00 Sickle Cells Not Reportable 12/03/16 04:00 Target Cells Rare 12/03/16 04:00 Tear Drop Cells Not Reportable 12/03/16 04:00 Ovalocytes Not Reportable 12/03/16 04:00 Stomatocytes Rare 12/03/16 04:00 Helmet Cells Not Reportable 12/03/16 04:00 Monet-[place] Bodies Not Reportable 12/03/16 04:00 [place] Rings Not Reportable 12/03/16 04:00 Chuck Cells Not Reportable 12/03/16 04:00 Bite Cells Not Reportable 12/03/16 04:00 Crenated Cell Not Reportable 12/03/16 04:00 Elliptocytes Not Reportable 12/03/16 04:00 Acanthocytes (Spur) Not Reportable 12/03/16 04:00 Rouleaux Not Reportable 12/03/16 04:00 Hemoglobin C Crystals Not Reportable 12/03/16 04:00 Schistocytes Not Reportable 12/03/16 04:00 Malaria parasites Not Reportable 12/03/16 04:00 ESR > 140.0 mm/Hr (0-20) 09/08/16 11:48 Jun Bodies Not Reportable 12/03/16 04:00 Hem Pathologist Commnt No 12/03/16 04:00 PT 16.8 Sec. (12.2-14.9) H 11/17/16 03:20 INR 1.37 (0.87-1.13) H 11/17/16 03:20 APTT 33.0 Sec. (24.2-36.6) 10/09/16 03:45 Thrombin Time 16.8 Sec. (15.1-19.6) 09/03/16 00:10 Fibrinogen 750 mg/dl (211-480) H 09/08/16 11:48 Lupus Anticoagulant see below 09/12/16 09:59 LA PTT Baseline See scanned report 09/12/16 09:59 dRVVT Confirm Interp Positive (Negative) H 09/12/16 09:59 dRVVT Screen 50:50 See scanned report 09/12/16 09:59 dRVVT Mix Interpret See scanned report 09/12/16 09:59 Protein C Antigen 122 % (70-140) 09/08/16 15:35 Free Protein S 97 % normal (50-147) 09/08/16 15:35 Total Protein S 109 % (70-140) 09/08/16 15:35 Antithrombin III Ag 100 % (80-120) 09/08/16 15:35 Heparin Anti-Xa, Unfract Negative (Negative) 09/29/16 13:35 Factor V Activity 182 % (65-150) H 09/08/16 15:35 POC ABG pH 7.487 (7.35-7.45) H 11/25/16 14:12 ABG pH 7.450 pH Units (7.350-7.450) 12/05/16 Unknown POC ABG pCO2 39.0 (35-45) 11/25/16 14:12 ABG pCO2 29.6 mm Hg 12/05/16 Unknown POC ABG pO2 153 (80-105) H 11/25/16 14:12 ABG pO2 75.2 mm Hg (80.0-90.0) L 12/05/16 Unknown POC ABG HCO3 29.5 11/25/16 14:12 ABG HCO3 20.1 mmol/L (20.0-26.0) 12/05/16 Unknown POC ABG Total CO2 31 11/25/16 14:12 POC ABG O2 Sat 99 11/25/16 14:12 ABG O2 Saturation 96.8 % (95.0-99.0) 12/05/16 Unknown ABG O2 Content 9.9 (0.0-44) 12/05/16 Unknown POC ABG Base Excess 6 11/25/16 14:12 ABG Base Excess -3.4 mmol/L (-2.0-3.0) L 12/05/16 Unknown ABG Hemoglobin 7.4 gm/dl (12.0-16.0) L 12/05/16 Unknown ABG Carboxyhemoglobin 1.8 % (0.0-5.0) 12/05/16 Unknown ABG Methemoglobin 0.6 % (0.0-1.5) 12/05/16 Unknown Oxyhemoglobin 94.5 % (95.0-99.0) L 12/05/16 Unknown FiO2 30 % 12/05/16 Unknown Sodium 140 mmol/L (137-145) 12/05/16 05:00 Potassium 4.1 mmol/L (3.6-5.0) 12/05/16 05:00 Chloride 100.5 mmol/L (98-107) 12/05/16 05:00 Carbon Dioxide 21 mmol/L (22-30) L 12/05/16 05:00 Anion Gap 23 mmol/L 12/05/16 05:00 BUN 85 mg/dL (7-17) H 12/05/16 05:00 Creatinine 1.9 mg/dL (0.7-1.2) H 12/05/16 05:00 Estimated GFR 35 ml/min 12/05/16 05:00 BUN/Creatinine Ratio 45 % 12/05/16 05:00 Glucose 131 mg/dL (65-100) H 12/05/16 05:00 POC Glucose 117 (70-105) H 12/05/16 11:43 Osmolality 351 Mosm/kg 09/16/16 11:47 Lactic Acid 4.50 mmol/L (0.7-2.0) H* 09/28/16 07:25 Calcium 9.3 mg/dL (8.4-10.2) 12/05/16 05:00 Phosphorus 4.50 mg/dL (2.5-4.5) 12/05/16 05:00 Magnesium 1.80 mg/dL (1.7-2.3) 12/05/16 05:00 Total Bilirubin 0.20 mg/dL (0.1-1.2) 12/04/16 04:00 Direct Bilirubin 0.3 mg/dL (0-0.2) H 10/10/16 05:00 Indirect Bilirubin 0.1 mg/dL 10/10/16 05:00 AST 29 units/L (5-40) 12/04/16 04:00 ALT 43 units/L (7-56) 12/04/16 04:00 Alkaline Phosphatase 155 units/L (35-129) H 12/04/16 04:00 Ammonia 27.0 umol/L (25-60) 09/07/16 08:37 Lactate Dehydrogenase 196 units/L (91-180) H 11/11/16 06:59 Total Creatine Kinase 121 units/L (30-135) 09/29/16 20:12 CK-MB (CK-2) < 1.0 ng/mL (0.0-4.0) 09/29/16 20:12 CK-MB (CK-2) Rel Index 0.8 (0-4) 09/29/16 20:12 Troponin T 0.204 ng/mL (0.00-0.029) H* 09/29/16 20:12 C-Reactive Protein 19.30 mg/dL (0.00-1.30) H 12/05/16 05:00 Total Protein 5.5 g/dL (6.3-8.2) L 12/04/16 04:00 Albumin 1.5 g/dL (3.9-5) L 12/04/16 04:00 Albumin/Globulin Ratio 0.4 % 12/04/16 04:00 Prealbumin 0.180 g/L (0.200-0.400) L 11/06/16 06:25 Triglycerides 137 mg/dL (2-149) 09/29/16 20:12 Cholesterol 31 mg/dL (50-199) L 09/29/16 20:12 LDL Cholesterol Direct 4 mg/dL (50-130) L 09/29/16 20:12 HDL Cholesterol 3 mg/dL (40-59) L 09/29/16 20:12 Cholesterol/HDL Ratio 10.33 % 09/29/16 20:12 Angiotensin Convert Enz See scanned report 09/08/16 11:48 Renin 0.99 ng/mL/h (0.25-5.82) 10/07/16 10:56 Aldosterone <1 ng/dL () 10/07/16 10:56 Aldosterone/Renin Dir see below 10/07/16 10:56 Serotonin Release Assay See scanned report 09/29/16 13:35 TSH 1.010 mlU/mL (0.270-4.200) 09/07/16 08:37 HCG, Qual Negative (Negative) 09/03/16 00:10 Urine Color Yellow (Yellow) 11/05/16 13:09 Urine Turbidity Clear (Clear) 11/05/16 13:09 Urine pH 9.0 (5.0-7.0) H 11/05/16 13:09 Ur Specific [place] 1.011 (1.003-1.030) 11/05/16 13:09 Urine Protein 100 mg/dl mg/dL (Negative) 11/05/16 13:09 Urine Glucose (UA) Neg mg/dL (Negative) 11/05/16 13:09 Urine Ketones Neg mg/dL (Negative) 11/05/16 13:09 Urine Blood Neg (Negative) 11/05/16 13:09 Urine Nitrite Neg (Negative) 11/05/16 13:09 Urine Bilirubin Neg (Negative) 11/05/16 13:09 Urine Urobilinogen < 2.0 mg/dL (<2.0) 11/05/16 13:09 Ur Leukocyte Esterase Neg (Negative) 11/05/16 13:09 Urine WBC (Auto) 4.0 /HPF (0.0-6.0) 11/05/16 13:09 Urine RBC (Auto) 1.0 /HPF (0.0-6.0) 11/05/16 13:09 U Epithel Cells (Auto) 1.0 /HPF (0-13.0) 10/07/16 18:30 Urine Bacteria (Auto) 4+ /HPF (Negative) 11/05/16 13:09 Urine WBC Clumps 2+ /HPF 09/07/16 02:47 Hyaline Casts 4 /LPF 09/07/16 02:47 Urine Mucus Few /HPF 10/07/16 18:30 Urine Yeast (Budding) 3+ /HPF 10/07/16 18:30 Urine Eosinophils None seen (None Seen) 09/07/16 16:00 Urine Total Volume 950 11/12/16 10:18 Urine Creatinine 19.7 mg/dL (0.1-20.0) 11/12/16 10:18 Height (in) 65.0 inches 11/12/16 10:18 Weight (lb) 181.0 lbs 11/12/16 10:18 Creatinine Clearance 5 11/12/16 10:18 Urine Sodium 36 mEq/L 09/16/16 19:19 Urine Total Protein 16 mg/dL (5-11.8) H 09/16/16 19:19 Fluid Total Protein < 3.0 (15.0-45.0) L 11/10/16 14:20 Fluid LDH 123 11/10/16 14:20 Vancomycin Trough 2.3 ug/mL (5.0-20.0) L 09/21/16 13:00 Random Vancomycin 16.5 ug/mL (0-40.0) 11/28/16 09:45 Urine Opiates Screen Presumptive negative 09/03/16 15:11 Urine Methadone Screen Presumptive positive 09/03/16 15:11 Ur Barbiturates Screen Presumptive positive 09/03/16 15:11 Ur Phencyclidine Scrn Presumptive negative 09/03/16 15:11 Ur Amphetamines Screen Presumptive negative 09/03/16 15:11 U Benzodiazepines Scrn Presumptive negative 09/03/16 15:11 Urine Cocaine Screen Presumptive negative 09/03/16 15:11 U Marijuana (THC) Screen Presumptive positive 09/03/16 15:11 Drugs of Abuse Note Disclamer 09/03/16 15:11 Rheumatoid Factor 24 IU/ml (0-13) H 09/08/16 11:48 SAHIL Screen Negative (Negative) 09/07/16 09:20 Proteinase 3 (PR3) Ab <1.0 AI (<1.0) 09/07/16 09:20 Myeloperoxidase Ab <1.0 AI (<1.0) 09/07/16 09:20 Sjogren's Antibody <1.0 AI (<1.0) 09/08/16 15:35 Scl-70 Scleroderma Ab <1.0 AI (<1.0) 09/08/16 15:35 Centromere B Antibody <1.0 AI (<1.0) 09/08/16 12:02 Heparin-induced Plt Ab Negative (Negative) 09/29/16 13:35 UF Heparin High Dose 11 % Release 09/29/16 13:35 SUDHIR UFH Low Dose 0.1 6 % Release 09/29/16 13:35 SUDHIR UFH Low Dose 0.5 8 % Release 09/29/16 13:35 Cardiolipid IgG Ab <14 GPL (<=14) 09/12/16 09:59 Cardiolipid IgA Ab <11 APL (<=11) 09/12/16 09:59 Cardiolipid IgM Ab <12 MPL (<=12) 09/12/16 09:59 Complement C3 148 mg/dL (90-180) 09/07/16 09:20 Complement C4 58 mg/dL (16-47) H 09/07/16 09:20 RPR Nonreactive (Nonreactive) 09/08/16 11:48 Hepatitis A IgM Ab Non-reactive (NonReactive) 09/24/16 14:40 Hep Bs Antigen Non-reactive (Negative) 09/24/16 14:40 Hep B Core IgM Ab Non-reactive (NonReactive) 09/24/16 14:40 Hepatitis C Antibody Non-reactive (NonReactive) 09/24/16 14:40 HIV 1&2 Antibody Rapid Non react (Non React) 09/08/16 11:48 HIV P24 Antigen Non react (Non React) 09/08/16 11:48 Miscellaneous Test Flexitest 1 H 11/05/16 13:25 Blood Type A POSITIVE 11/24/16 11:20 Antibody Screen TNR 11/24/16 11:20 DELORIS Antibody Screen Negative 11/24/16 11:20 Crossmatch See Detail 11/24/16 11:20
[2016-12-05] MEDS ORDERED: INTRALIPID 20% 250 ML IV SCH (20:00)
[2016-12-05] MEDS ORDERED: TPN ADULT IV SCH (20:00)
[2016-12-06] MEDS: HumuLIN R SUB-Q SCH ×5 (00:15→18:36)
[2016-12-06] MEDS: DUONEB *Not for PRN Use IH SCH ×4 (01:59→19:22)
[2016-12-06] MEDS: APRESOLINE PO SCH ×3 (06:36→21:45)
[2016-12-06] MEDS: LASIX IV SCH ×2 (06:42→18:37)
[2016-12-06] MEDS: LOPRESSOR PO SCH ×3 (06:42→18:37)
[2016-12-06 07:29] LABS: Calcium 9.1 mg/dL (8.4-10.2)
[2016-12-06 08:35] LABS: Hematocrit 26.4 % (30.3-42.9); Hemoglobin 8.3 gm/dl (10.1-14.3)
--- NOTE | 2016-12-06 09:04 | Progress Note ---
Assessment and Plan Acute Hypoxemic Respiratory Failure (now with exacerbation and back on MVS) Hypertension (unable to receive p.o. 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 and get back to us this next week) - for dialysis today - repeat H&H +/- transfusion - keep on with daily PSV trials and / or T-piece as tolerated (repeat trial each shift if failed earlier shift) - continue TPN administration (continue TPN; NPO except for meds) - continue scopolamine for secretion control - continue to wean FiO2 for sats > 94% - continue bronchodilators and pulmonary toilet - VAP bundle addressed - continue prn IV metorolol - continue AB's (Vancomycin) till stop date per ID recs - continue metoprolol and amlodipine (rate control better) - continue HD/UF per nephrology (for HD/UF session yesterday) - continue to follow electrolytes and correct as necessary - continue GI & VTE prophylaxis - Continue flu & pneumovax per protocol ... she remains critically ill on life sustaining interventions including MVS and at risk for further deterioration including ....33' CCT today without overlap Subjective Date of service: 12/06/16 Principal diagnosis: Acute resp failure on MVS; S/P Acute CVA; Acute Encephalopathy; JUANITA Interval history: Patient is seen today for: Acute resp failure on MVS; S/P Acute CVA; Acute Encephalopathy; JUANITA Seen and examined at bedside; 24hour events reviewed; nursing and respiratory care staff consulted; no adverse overnight events reported to me; for dialysis today; tolerated only a few minutes on PSV today; AMS is persistent but no seizure; Hb < 7.0 without gross bleeding; remains NPO except for meds and GI tract stomal drainage is persistent Objective Vital Signs - 12hr 12/05/16 12/05/16 12/05/16 21:30 22:00 22:30 Temperature Pulse Rate 119 H 122 H 117 H Pulse Rate [ Bilateral Throughout] Pulse Rate [ From Monitor] Respiratory 24 23 22 Rate Respiratory Rate [Bilateral Throughout] Blood Pressure 154/84 149/82 129/75 O2 Sat by Pulse 99 99 99 Oximetry O2 Sat by Pulse Oximetry [ Assessment] 12/05/16 12/05/16 12/05/16 23:00 23:02 23:25 Temperature 98.9 F Pulse Rate 119 H 124 H Pulse Rate [ Bilateral Throughout] Pulse Rate [ From Monitor] Respiratory 23 Rate Respiratory Rate [Bilateral Throughout] Blood Pressure 111/62 133/77 O2 Sat by Pulse 96 99 Oximetry O2 Sat by Pulse Oximetry [ Assessment] 12/05/16 12/05/16 12/05/16 23:29 23:30 23:36 Temperature Pulse Rate 126 H 126 H Pulse Rate [ Bilateral Throughout] Pulse Rate [ From Monitor] Respiratory 17 15 Rate Respiratory Rate [Bilateral Throughout] Blood Pressure 154/84 154/84 O2 Sat by Pulse 100 100 Oximetry O2 Sat by Pulse 100 Oximetry [ Assessment] 12/05/16 12/06/16 12/06/16 23:49 00:00 00:30 Temperature Pulse Rate 126 H 127 H 126 H Pulse Rate [ Bilateral Throughout] Pulse Rate [ From Monitor] Respiratory 23 26 H Rate Respiratory Rate [Bilateral Throughout] Blood Pressure 153/86 144/76 132/74 O2 Sat by Pulse 100 98 Oximetry O2 Sat by Pulse Oximetry [ Assessment] 12/06/16 12/06/16 12/06/16 01:00 01:30 01:59 Temperature Pulse Rate 123 H 98 H Pulse Rate [ 102 H Bilateral Throughout] Pulse Rate [ From Monitor] Respiratory 20 26 H Rate Respiratory 24 Rate [Bilateral Throughout] Blood Pressure 121/85 122/76 O2 Sat by Pulse 100 100 Oximetry O2 Sat by Pulse Oximetry [ Assessment] 12/06/16 12/06/16 12/06/16 02:00 02:15 02:30 Temperature Pulse Rate 102 H 112 H Pulse Rate [ 104 H Bilateral Throughout] Pulse Rate [ From Monitor] Respiratory 25 H 26 H Rate Respiratory 24 Rate [Bilateral Throughout] Blood Pressure 128/68 140/71 O2 Sat by Pulse 100 100 Oximetry O2 Sat by Pulse Oximetry [ Assessment] 12/06/16 12/06/16 12/06/16 03:00 03:30 03:49 Temperature 99.4 F Pulse Rate 106 H 108 H Pulse Rate [ Bilateral Throughout] Pulse Rate [ From Monitor] Respiratory 24 18 Rate Respiratory Rate [Bilateral Throughout] Blood Pressure 118/73 126/73 O2 Sat by Pulse 99 99 Oximetry O2 Sat by Pulse Oximetry [ Assessment] 12/06/16 12/06/16 12/06/16 04:00 04:30 04:32 Temperature Pulse Rate 105 H 105 H 107 H Pulse Rate [ Bilateral Throughout] Pulse Rate [ From Monitor] Respiratory 18 19 Rate Respiratory Rate [Bilateral Throughout] Blood Pressure 117/64 110/64 117/63 O2 Sat by Pulse 100 100 99 Oximetry O2 Sat by Pulse Oximetry [ Assessment] 12/06/16 12/06/16 12/06/16 04:45 05:00 05:30 Temperature Pulse Rate 94 H 105 H 104 H Pulse Rate [ Bilateral Throughout] Pulse Rate [ From Monitor] Respiratory 18 21 Rate Respiratory Rate [Bilateral Throughout] Blood Pressure 110/59 102/58 O2 Sat by Pulse 97 100 100 Oximetry O2 Sat by Pulse Oximetry [ Assessment] 12/06/16 12/06/16 12/06/16 06:00 06:30 06:36 Temperature Pulse Rate 106 H 103 H 103 H Pulse Rate [ Bilateral Throughout] Pulse Rate [ From Monitor] Respiratory 20 18 Rate Respiratory Rate [Bilateral Throughout] Blood Pressure 110/60 110/60 110/60 O2 Sat by Pulse 100 100 Oximetry O2 Sat by Pulse Oximetry [ Assessment] 12/06/16 12/06/16 12/06/16 06:42 07:00 07:30 Temperature Pulse Rate 103 H 105 H 94 H Pulse Rate [ Bilateral Throughout] Pulse Rate [ From Monitor] Respiratory 18 17 Rate Respiratory Rate [Bilateral Throughout] Blood Pressure 110/60 110/60 88/54 O2 Sat by Pulse 100 100 Oximetry O2 Sat by Pulse Oximetry [ Assessment] 12/06/16 12/06/16 08:00 09:00 Temperature 99.5 F Pulse Rate 93 H 94 H Pulse Rate [ Bilateral Throughout] Pulse Rate [ 128 H From Monitor] Respiratory 18 Rate Respiratory Rate [Bilateral Throughout] Blood Pressure 104/56 94/48 O2 Sat by Pulse 100 100 Oximetry O2 Sat by Pulse Oximetry [ Assessment] Constitutional: appears uncomfortable, other (not tracking) Eyes: non-icteric, other (tracheostomy tube in midline of neck) ENT: oropharynx moist, oropharyngeal exudate pre Neck: supple, no lymphadenopathy, no JVD, other (no thyromegaly) Effort: mildly labored Ascultation: Bilateral: diminished breath sounds (bases), rhonchi (and referred upper airway sounds) Percussion: Bilateral: dull (bases) Cardiovascular: regular rate and rhythm, other (no rubs / murmurs) Gastrointestinal: hypoactive bowel sounds, soft, non-tender, non-distended, other (RLQ & LUQ stomas with colostomy bags) Integumentary: other (healing back burn-like injury; poor turgor) Extremities: no cyanosis, pulses normal, no ischemia or petechiae, edema (1+ bilaterally) Neurologic: pupils equal and round, unable to assess, other (encephalopathic) Psychiatric: other (unable to assess) CBC and BMP: 12/07/16 08:00 12/07/16 06:30 ABG, PT/INR, D-dimer: ABG POC ABG pH 7.487 (7.35-7.45) H 11/25/16 14:12 ABG pH 7.450 pH Units (7.350-7.450) 12/05/16 Unknown POC ABG pCO2 39.0 (35-45) 11/25/16 14:12 ABG pCO2 29.6 mm Hg 12/05/16 Unknown POC ABG pO2 153 (80-105) H 11/25/16 14:12 ABG pO2 75.2 mm Hg (80.0-90.0) L 12/05/16 Unknown POC ABG HCO3 29.5 11/25/16 14:12 POC ABG Total CO2 31 11/25/16 14:12 POC ABG O2 Sat 99 11/25/16 14:12 ABG O2 Saturation 96.8 % (95.0-99.0) 12/05/16 Unknown PT/INR, D-dimer PT 16.8 Sec. (12.2-14.9) H 11/17/16 03:20 INR 1.37 (0.87-1.13) H 11/17/16 03:20 Abnormal lab findings: Abnormal Labs 09/03/16 09/03/16 09/03/16 12:12 15:07 16:20 WBC RBC Hgb Hct MCV MCH MCHC RDW Plt Count Lymph % (Auto) [place] % (Auto) Lymph # [place] # Baso # Seg Neutrophils % Seg Neuts % (Manual) Lymphocytes % (Manual) Monocytes % (Manual) Eosinophils % (Manual) Basophils % (Manual) Nucleated RBC % Seg Neutrophils # Seg Neutrophils # Man Lymphocytes # (Manual) Monocytes # (Manual) Eosinophils # (Manual) PT INR Fibrinogen dRVVT Confirm Interp Factor V Activity POC ABG pH 7.452 H POC ABG pCO2 POC ABG pO2 ABG pO2 ABG HCO3 ABG Base Excess ABG Hemoglobin Oxyhemoglobin Sodium Potassium Chloride Carbon Dioxide BUN Creatinine Glucose POC Glucose 178 H Lactic Acid Calcium Phosphorus 2.20 L Magnesium 1.60 L Direct Bilirubin AST ALT Alkaline Phosphatase Lactate Dehydrogenase Troponin T C-Reactive Protein Total Protein Albumin Prealbumin Triglycerides Cholesterol LDL Cholesterol Direct HDL Cholesterol Urine pH Urine WBC (Auto) Urine Creatinine Urine Total Protein Fluid Total Protein Vancomycin Trough Rheumatoid Factor Complement C4 Miscellaneous Test Crossmatch 09/03/16 09/03/16 09/03/16 17:57 17:58 23:50 WBC RBC Hgb Hct MCV MCH MCHC RDW Plt Count Lymph % (Auto) [place] % (Auto) Lymph # [place] # Baso # Seg Neutrophils % Seg Neuts % (Manual) Lymphocytes % (Manual) Monocytes % (Manual) Eosinophils % (Manual) Basophils % (Manual) Nucleated RBC % Seg Neutrophils # Seg Neutrophils # Man Lymphocytes # (Manual) Monocytes # (Manual) Eosinophils # (Manual) PT INR Fibrinogen dRVVT Confirm Interp Factor V Activity POC ABG pH POC ABG pCO2 POC ABG pO2 ABG pO2 ABG HCO3 ABG Base Excess ABG Hemoglobin Oxyhemoglobin Sodium Potassium Chloride Carbon Dioxide BUN Creatinine Glucose POC Glucose 162 H 145 H Lactic Acid Calcium Phosphorus 2.30 L Magnesium Direct Bilirubin AST ALT Alkaline Phosphatase Lactate Dehydrogenase Troponin T C-Reactive Protein Total Protein Albumin Prealbumin Triglycerides Cholesterol LDL Cholesterol Direct HDL Cholesterol Urine pH Urine WBC (Auto) Urine Creatinine Urine Total Protein Fluid Total Protein Vancomycin Trough Rheumatoid Factor Complement C4 Miscellaneous Test Crossmatch 09/04/16 09/04/16 09/04/16 03:31 03:31 05:42 WBC RBC Hgb 9.7 L D Hct MCV 72 L MCH 23 L MCHC RDW 17.5 H Plt Count Lymph % (Auto) 11.1 L [place] % (Auto) Lymph # [place] # Baso # Seg Neutrophils % 84.3 H Seg Neuts % (Manual) Lymphocytes % (Manual) Monocytes % (Manual) Eosinophils % (Manual) Basophils % (Manual) Nucleated RBC % Seg Neutrophils # 8.9 H Seg Neutrophils # Man Lymphocytes # (Manual) Monocytes # (Manual) Eosinophils # (Manual) PT INR Fibrinogen dRVVT Confirm Interp Factor V Activity POC ABG pH POC ABG pCO2 POC ABG pO2 ABG pO2 ABG HCO3 ABG Base Excess ABG Hemoglobin Oxyhemoglobin Sodium 135 L Potassium 2.9 L* Chloride 97.2 L Carbon Dioxide 19 L BUN Creatinine 1.7 H Glucose 170 H POC Glucose 152 H Lactic Acid Calcium Phosphorus Magnesium Direct Bilirubin AST ALT Alkaline Phosphatase Lactate Dehydrogenase Troponin T C-Reactive Protein Total Protein Albumin Prealbumin Triglycerides 160 H Cholesterol LDL Cholesterol Direct HDL Cholesterol 31 L Urine pH Urine WBC (Auto) Urine Creatinine Urine Total Protein Fluid Total Protein Vancomycin Trough Rheumatoid Factor Complement C4 Miscellaneous Test Crossmatch 09/04/16 09/04/16 09/04/16 11:34 17:46 23:29 WBC RBC Hgb Hct MCV MCH MCHC RDW Plt Count Lymph % (Auto) [place] % (Auto) Lymph # [place] # Baso # Seg Neutrophils % Seg Neuts % (Manual) Lymphocytes % (Manual) Monocytes % (Manual) Eosinophils % (Manual) Basophils % (Manual) Nucleated RBC % Seg Neutrophils # Seg Neutrophils # Man Lymphocytes # (Manual) Monocytes # (Manual) Eosinophils # (Manual) PT INR Fibrinogen dRVVT Confirm Interp Factor V Activity POC ABG pH POC ABG pCO2 POC ABG pO2 ABG pO2 ABG HCO3 ABG Base Excess ABG Hemoglobin Oxyhemoglobin Sodium Potassium Chloride Carbon Dioxide BUN Creatinine Glucose POC Glucose 165 H 210 H 139 H Lactic Acid Calcium Phosphorus Magnesium Direct Bilirubin AST ALT Alkaline Phosphatase Lactate Dehydrogenase Troponin T C-Reactive Protein Total Protein Albumin Prealbumin Triglycerides Cholesterol LDL Cholesterol Direct HDL Cholesterol Urine pH Urine WBC (Auto) Urine Creatinine Urine Total Protein Fluid Total Protein Vancomycin Trough Rheumatoid Factor Complement C4 Miscellaneous Test Crossmatch 09/05/16 09/05/16 09/05/16 04:05 04:05 05:38 WBC RBC Hgb Hct MCV 76 L D MCH 23 L MCHC RDW 17.8 H Plt Count Lymph % (Auto) [place] % (Auto) Lymph # [place] # Baso # Seg Neutrophils % Seg Neuts % (Manual) Lymphocytes % (Manual) Monocytes % (Manual) Eosinophils % (Manual) Basophils % (Manual) Nucleated RBC % Seg Neutrophils # Seg Neutrophils # Man Lymphocytes # (Manual) Monocytes # (Manual) Eosinophils # (Manual) PT INR Fibrinogen dRVVT Confirm Interp Factor V Activity POC ABG pH POC ABG pCO2 POC ABG pO2 ABG pO2 ABG HCO3 ABG Base Excess ABG Hemoglobin Oxyhemoglobin Sodium 134 L Potassium Chloride Carbon Dioxide 18 L BUN Creatinine 1.8 H Glucose 192 H POC Glucose 175 H Lactic Acid Calcium Phosphorus Magnesium Direct Bilirubin AST ALT Alkaline Phosphatase Lactate Dehydrogenase Troponin T C-Reactive Protein Total Protein Albumin Prealbumin Triglycerides Cholesterol LDL Cholesterol Direct HDL Cholesterol Urine pH Urine WBC (Auto) Urine Creatinine Urine Total Protein Fluid Total Protein Vancomycin Trough Rheumatoid Factor Complement C4 Miscellaneous Test Crossmatch 09/05/16 09/05/16 09/05/16 11:38 17:48 23:22 WBC RBC Hgb Hct MCV MCH MCHC RDW Plt Count Lymph % (Auto) [place] % (Auto) Lymph # [place] # Baso # Seg Neutrophils % Seg Neuts % (Manual) Lymphocytes % (Manual) Monocytes % (Manual) Eosinophils % (Manual) Basophils % (Manual) Nucleated RBC % Seg Neutrophils # Seg Neutrophils # Man Lymphocytes # (Manual) Monocytes # (Manual) Eosinophils # (Manual) PT INR Fibrinogen dRVVT Confirm Interp Factor V Activity POC ABG pH POC ABG pCO2 POC ABG pO2 ABG pO2 ABG HCO3 ABG Base Excess ABG Hemoglobin Oxyhemoglobin Sodium Potassium Chloride Carbon Dioxide BUN Creatinine Glucose POC Glucose 164 H 186 H 195 H Lactic Acid Calcium Phosphorus Magnesium Direct Bilirubin AST ALT Alkaline Phosphatase Lactate Dehydrogenase Troponin T C-Reactive Protein Total Protein Albumin Prealbumin Triglycerides Cholesterol LDL Cholesterol Direct HDL Cholesterol Urine pH Urine WBC (Auto) Urine Creatinine Urine Total Protein Fluid Total Protein Vancomycin Trough Rheumatoid Factor Complement C4 Miscellaneous Test Crossmatch 09/06/16 09/06/16 09/06/16 04:12 05:59 07:32 WBC RBC Hgb Hct MCV MCH MCHC RDW Plt Count Lymph % (Auto) [place] % (Auto) Lymph # [place] # Baso # Seg Neutrophils % Seg Neuts % (Manual) Lymphocytes % (Manual) Monocytes % (Manual) Eosinophils % (Manual) Basophils % (Manual) Nucleated RBC % Seg Neutrophils # Seg Neutrophils # Man Lymphocytes # (Manual) Monocytes # (Manual) Eosinophils # (Manual) PT INR Fibrinogen dRVVT Confirm Interp Factor V Activity POC ABG pH 7.514 H POC ABG pCO2 29.1 L POC ABG pO2 72 L ABG pO2 ABG HCO3 ABG Base Excess ABG Hemoglobin Oxyhemoglobin Sodium 133 L Potassium 3.4 L Chloride 94.9 L Carbon Dioxide 19 L BUN 30 H Creatinine 2.1 H Glucose 139 H POC Glucose 146 H Lactic Acid Calcium Phosphorus Magnesium Direct Bilirubin AST ALT Alkaline Phosphatase Lactate Dehydrogenase Troponin T C-Reactive Protein Total Protein Albumin Prealbumin Triglycerides Cholesterol LDL Cholesterol Direct HDL Cholesterol Urine pH Urine WBC (Auto) Urine Creatinine Urine Total Protein Fluid Total Protein Vancomycin Trough Rheumatoid Factor Complement C4 Miscellaneous Test Crossmatch 09/06/16 09/06/16 09/06/16 11:57 17:58 19:02 WBC RBC Hgb Hct MCV MCH MCHC RDW Plt Count Lymph % (Auto) [place] % (Auto) Lymph # [place] # Baso # Seg Neutrophils % Seg Neuts % (Manual) Lymphocytes % (Manual) Monocytes % (Manual) Eosinophils % (Manual) Basophils % (Manual) Nucleated RBC % Seg Neutrophils # Seg Neutrophils # Man Lymphocytes # (Manual) Monocytes # (Manual) Eosinophils # (Manual) PT INR Fibrinogen dRVVT Confirm Interp Factor V Activity POC ABG pH 7.465 H POC ABG pCO2 32.0 L POC ABG pO2 ABG pO2 ABG HCO3 ABG Base Excess ABG Hemoglobin Oxyhemoglobin Sodium Potassium Chloride Carbon Dioxide BUN Creatinine Glucose POC Glucose 165 H 160 H Lactic Acid Calcium Phosphorus Magnesium Direct Bilirubin AST ALT Alkaline Phosphatase Lactate Dehydrogenase Troponin T C-Reactive Protein Total Protein Albumin Prealbumin Triglycerides Cholesterol LDL Cholesterol Direct HDL Cholesterol Urine pH Urine WBC (Auto) Urine Creatinine Urine Total Protein Fluid Total Protein Vancomycin Trough Rheumatoid Factor Complement C4 Miscellaneous Test Crossmatch 09/06/16 09/07/16 09/07/16 23:45 02:47 02:47 WBC RBC Hgb Hct MCV MCH MCHC RDW Plt Count Lymph % (Auto) [place] % (Auto) Lymph # [place] # Baso # Seg Neutrophils % Seg Neuts % (Manual) Lymphocytes % (Manual) Monocytes % (Manual) Eosinophils % (Manual) Basophils % (Manual) Nucleated RBC % Seg Neutrophils # Seg Neutrophils # Man Lymphocytes # (Manual) Monocytes # (Manual) Eosinophils # (Manual) PT INR Fibrinogen dRVVT Confirm Interp Factor V Activity POC ABG pH POC ABG pCO2 POC ABG pO2 ABG pO2 ABG HCO3 ABG Base Excess ABG Hemoglobin Oxyhemoglobin Sodium Potassium Chloride Carbon Dioxide BUN Creatinine Glucose POC Glucose 204 H Lactic Acid Calcium Phosphorus Magnesium Direct Bilirubin AST ALT Alkaline Phosphatase Lactate Dehydrogenase Troponin T C-Reactive Protein Total Protein Albumin Prealbumin Triglycerides Cholesterol LDL Cholesterol Direct HDL Cholesterol Urine pH Urine WBC (Auto) 68.0 H Urine Creatinine 106.1 H Urine Total Protein Fluid Total Protein Vancomycin Trough Rheumatoid Factor Complement C4 Miscellaneous Test Crossmatch 09/07/16 09/07/16 09/07/16 04:50 06:19 06:39 WBC RBC Hgb Hct MCV MCH MCHC RDW Plt Count Lymph % (Auto) [place] % (Auto) Lymph # [place] # Baso # Seg Neutrophils % Seg Neuts % (Manual) Lymphocytes % (Manual) Monocytes % (Manual) Eosinophils % (Manual) Basophils % (Manual) Nucleated RBC % Seg Neutrophils # Seg Neutrophils # Man Lymphocytes # (Manual) Monocytes # (Manual) Eosinophils # (Manual) PT INR Fibrinogen dRVVT Confirm Interp Factor V Activity POC ABG pH 7.457 H POC ABG pCO2 32.1 L POC ABG pO2 76 L ABG pO2 ABG HCO3 ABG Base Excess ABG Hemoglobin Oxyhemoglobin Sodium 132 L Potassium Chloride 94.7 L Carbon Dioxide BUN 53 H Creatinine 2.9 H Glucose 151 H POC Glucose 149 H Lactic Acid Calcium Phosphorus Magnesium Direct Bilirubin AST ALT Alkaline Phosphatase Lactate Dehydrogenase Troponin T C-Reactive Protein Total Protein Albumin Prealbumin Triglycerides Cholesterol LDL Cholesterol Direct HDL Cholesterol Urine pH Urine WBC (Auto) Urine Creatinine Urine Total Protein Fluid Total Protein Vancomycin Trough Rheumatoid Factor Complement C4 Miscellaneous Test Crossmatch 09/07/16 09/07/16 09/07/16 09:20 11:43 11:43 WBC 19.4 H RBC Hgb 8.3 L Hct 26.4 L D MCV 72 L D MCH 22 L MCHC RDW 17.9 H Plt Count Lymph % (Auto) 8.5 L [place] % (Auto) Lymph # [place] # 1.0 H Baso # Seg Neutrophils % 85.8 H Seg Neuts % (Manual) Lymphocytes % (Manual) Monocytes % (Manual) Eosinophils % (Manual) Basophils % (Manual) Nucleated RBC % Seg Neutrophils # 16.6 H Seg Neutrophils # Man Lymphocytes # (Manual) Monocytes # (Manual) Eosinophils # (Manual) PT INR Fibrinogen dRVVT Confirm Interp Factor V Activity POC ABG pH POC ABG pCO2 POC ABG pO2 ABG pO2 ABG HCO3 ABG Base Excess ABG Hemoglobin Oxyhemoglobin Sodium 134 L Potassium Chloride 97.2 L Carbon Dioxide 20 L BUN 58 H Creatinine 2.9 H Glucose 147 H POC Glucose Lactic Acid Calcium Phosphorus 2.40 L Magnesium 2.40 H Direct Bilirubin AST ALT Alkaline Phosphatase Lactate Dehydrogenase Troponin T C-Reactive Protein Total Protein 5.8 L Albumin 2.2 L Prealbumin Triglycerides Cholesterol LDL Cholesterol Direct HDL Cholesterol Urine pH Urine WBC (Auto) Urine Creatinine Urine Total Protein Fluid Total Protein Vancomycin Trough Rheumatoid Factor Complement C4 58 H Miscellaneous Test Crossmatch 09/07/16 09/07/16 09/07/16 11:50 16:00 17:31 WBC RBC Hgb Hct MCV MCH MCHC RDW Plt Count Lymph % (Auto) [place] % (Auto) Lymph # [place] # Baso # Seg Neutrophils % Seg Neuts % (Manual) Lymphocytes % (Manual) Monocytes % (Manual) Eosinophils % (Manual) Basophils % (Manual) Nucleated RBC % Seg Neutrophils # Seg Neutrophils # Man Lymphocytes # (Manual) Monocytes # (Manual) Eosinophils # (Manual) PT INR Fibrinogen dRVVT Confirm Interp Factor V Activity POC ABG pH POC ABG pCO2 POC ABG pO2 158 H ABG pO2 ABG HCO3 ABG Base Excess ABG Hemoglobin Oxyhemoglobin Sodium Potassium Chloride Carbon Dioxide BUN Creatinine Glucose POC Glucose 175 H Lactic Acid Calcium Phosphorus Magnesium Direct Bilirubin AST ALT Alkaline Phosphatase Lactate Dehydrogenase Troponin T C-Reactive Protein Total Protein Albumin Prealbumin Triglycerides Cholesterol LDL Cholesterol Direct HDL Cholesterol Urine pH Urine WBC (Auto) Urine Creatinine 66.3 H Urine Total Protein Fluid Total Protein Vancomycin Trough Rheumatoid Factor Complement C4 Miscellaneous Test Crossmatch 09/07/16 09/08/16 09/08/16 23:50 05:46 06:18 WBC 17.8 H RBC 3.58 L Hgb 8.1 L Hct 25.5 L MCV 71 L MCH 23 L MCHC RDW 18.4 H Plt Count Lymph % (Auto) [place] % (Auto) Lymph # [place] # Baso # Seg Neutrophils % Seg Neuts % (Manual) 92.0 H Lymphocytes % (Manual) 6.0 L Monocytes % (Manual) Eosinophils % (Manual) Basophils % (Manual) Nucleated RBC % Seg Neutrophils # Seg Neutrophils # Man 16.4 H Lymphocytes # (Manual) 1.1 L Monocytes # (Manual) Eosinophils # (Manual) PT INR Fibrinogen dRVVT Confirm Interp Factor V Activity POC ABG pH POC ABG pCO2 34.3 L POC ABG pO2 71 L ABG pO2 ABG HCO3 ABG Base Excess ABG Hemoglobin Oxyhemoglobin Sodium Potassium Chloride Carbon Dioxide BUN Creatinine Glucose POC Glucose 216 H Lactic Acid Calcium Phosphorus Magnesium Direct Bilirubin AST ALT Alkaline Phosphatase Lactate Dehydrogenase Troponin T C-Reactive Protein Total Protein Albumin Prealbumin Triglycerides Cholesterol LDL Cholesterol Direct HDL Cholesterol Urine pH Urine WBC (Auto) Urine Creatinine Urine Total Protein Fluid Total Protein Vancomycin Trough Rheumatoid Factor Complement C4 Miscellaneous Test Crossmatch 09/08/16 09/08/16 09/08/16 06:18 06:51 10:55 WBC RBC Hgb Hct MCV MCH MCHC RDW Plt Count Lymph % (Auto) [place] % (Auto) Lymph # [place] # Baso # Seg Neutrophils % Seg Neuts % (Manual) Lymphocytes % (Manual) Monocytes % (Manual) Eosinophils % (Manual) Basophils % (Manual) Nucleated RBC % Seg Neutrophils # Seg Neutrophils # Man Lymphocytes # (Manual) Monocytes # (Manual) Eosinophils # (Manual) PT INR Fibrinogen dRVVT Confirm Interp Factor V Activity POC ABG pH POC ABG pCO2 POC ABG pO2 ABG pO2 ABG HCO3 ABG Base Excess ABG Hemoglobin Oxyhemoglobin Sodium 133 L Potassium Chloride 96.9 L Carbon Dioxide 20 L BUN 63 H Creatinine 2.7 H Glucose 195 H POC Glucose 204 H 169 H Lactic Acid Calcium Phosphorus Magnesium Direct Bilirubin AST ALT Alkaline Phosphatase Lactate Dehydrogenase Troponin T C-Reactive Protein Total Protein Albumin Prealbumin Triglycerides Cholesterol LDL Cholesterol Direct HDL Cholesterol Urine pH Urine WBC (Auto) Urine Creatinine Urine Total Protein Fluid Total Protein Vancomycin Trough Rheumatoid Factor Complement C4 Miscellaneous Test Crossmatch 09/08/16 09/08/16 09/08/16 11:48 11:48 11:48 WBC RBC Hgb Hct MCV MCH MCHC RDW Plt Count Lymph % (Auto) [place] % (Auto) Lymph # [place] # Baso # Seg Neutrophils % Seg Neuts % (Manual) Lymphocytes % (Manual) Monocytes % (Manual) Eosinophils % (Manual) Basophils % (Manual) Nucleated RBC % Seg Neutrophils # Seg Neutrophils # Man Lymphocytes # (Manual) Monocytes # (Manual) Eosinophils # (Manual) PT INR Fibrinogen 750 H dRVVT Confirm Interp Factor V Activity POC ABG pH POC ABG pCO2 POC ABG pO2 ABG pO2 ABG HCO3 ABG Base Excess ABG Hemoglobin Oxyhemoglobin Sodium Potassium Chloride Carbon Dioxide BUN Creatinine Glucose POC Glucose Lactic Acid Calcium Phosphorus Magnesium Direct Bilirubin AST ALT Alkaline Phosphatase Lactate Dehydrogenase Troponin T C-Reactive Protein 15.70 H Total Protein Albumin Prealbumin Triglycerides Cholesterol LDL Cholesterol Direct HDL Cholesterol Urine pH Urine WBC (Auto) Urine Creatinine Urine Total Protein Fluid Total Protein Vancomycin Trough Rheumatoid Factor 24 H Complement C4 Miscellaneous Test Crossmatch 09/08/16 09/08/16 09/09/16 15:35 18:25 00:24 WBC RBC Hgb Hct MCV MCH MCHC RDW Plt Count Lymph % (Auto) [place] % (Auto) Lymph # [place] # Baso # Seg Neutrophils % Seg Neuts % (Manual) Lymphocytes % (Manual) Monocytes % (Manual) Eosinophils % (Manual) Basophils % (Manual) Nucleated RBC % Seg Neutrophils # Seg Neutrophils # Man Lymphocytes # (Manual) Monocytes # (Manual) Eosinophils # (Manual) PT INR Fibrinogen dRVVT Confirm Interp Factor V Activity 182 H POC ABG pH POC ABG pCO2 POC ABG pO2 ABG pO2 ABG HCO3 ABG Base Excess ABG Hemoglobin Oxyhemoglobin Sodium Potassium Chloride Carbon Dioxide BUN Creatinine Glucose POC Glucose 184 H 216 H Lactic Acid Calcium Phosphorus Magnesium Direct Bilirubin AST ALT Alkaline Phosphatase Lactate Dehydrogenase Troponin T C-Reactive Protein Total Protein Albumin Prealbumin Triglycerides Cholesterol LDL Cholesterol Direct HDL Cholesterol Urine pH Urine WBC (Auto) Urine Creatinine Urine Total Protein Fluid Total Protein Vancomycin Trough Rheumatoid Factor Complement C4 Miscellaneous Test Crossmatch 09/09/16 09/09/16 09/09/16 03:00 03:00 04:04 WBC 27.9 H RBC Hgb 8.7 L Hct 28.1 L MCV 72 L MCH 22 L MCHC RDW 18.4 H Plt Count 485 H Lymph % (Auto) [place] % (Auto) Lymph # [place] # Baso # Seg Neutrophils % Seg Neuts % (Manual) 77.0 H Lymphocytes % (Manual) 9.0 L Monocytes % (Manual) Eosinophils % (Manual) Basophils % (Manual) Nucleated RBC % Seg Neutrophils # Seg Neutrophils # Man 21.5 H Lymphocytes # (Manual) Monocytes # (Manual) 2.0 H Eosinophils # (Manual) PT INR Fibrinogen dRVVT Confirm Interp Factor V Activity POC ABG pH POC ABG pCO2 POC ABG pO2 121 H ABG pO2 ABG HCO3 ABG Base Excess ABG Hemoglobin Oxyhemoglobin Sodium 135 L Potassium Chloride 96.3 L Carbon Dioxide 21 L BUN 83 H Creatinine 3.0 H Glucose 135 H POC Glucose Lactic Acid Calcium Phosphorus Magnesium Direct Bilirubin AST ALT Alkaline Phosphatase Lactate Dehydrogenase Troponin T C-Reactive Protein Total Protein Albumin Prealbumin Triglycerides Cholesterol LDL Cholesterol Direct HDL Cholesterol Urine pH Urine WBC (Auto) Urine Creatinine Urine Total Protein Fluid Total Protein Vancomycin Trough Rheumatoid Factor Complement C4 Miscellaneous Test Crossmatch 09/09/16 09/09/16 09/09/16 05:41 11:55 14:13 WBC RBC Hgb Hct MCV MCH MCHC RDW Plt Count Lymph % (Auto) [place] % (Auto) Lymph # [place] # Baso # Seg Neutrophils % Seg Neuts % (Manual) Lymphocytes % (Manual) Monocytes % (Manual) Eosinophils % (Manual) Basophils % (Manual) Nucleated RBC % Seg Neutrophils # Seg Neutrophils # Man Lymphocytes # (Manual) Monocytes # (Manual) Eosinophils # (Manual) PT INR Fibrinogen dRVVT Confirm Interp Factor V Activity POC ABG pH POC ABG pCO2 POC ABG pO2 ABG pO2 ABG HCO3 ABG Base Excess ABG Hemoglobin Oxyhemoglobin Sodium Potassium Chloride Carbon Dioxide BUN Creatinine Glucose POC Glucose 155 H 186 H Lactic Acid Calcium Phosphorus Magnesium Direct Bilirubin AST ALT Alkaline Phosphatase Lactate Dehydrogenase Troponin T C-Reactive Protein Total Protein Albumin Prealbumin Triglycerides Cholesterol LDL Cholesterol Direct HDL Cholesterol Urine pH Urine WBC (Auto) 25.0 H Urine Creatinine Urine Total Protein Fluid Total Protein Vancomycin Trough Rheumatoid Factor Complement C4 Miscellaneous Test Crossmatch 09/09/16 09/09/16 09/10/16 17:33 23:13 05:09 WBC RBC Hgb Hct MCV MCH MCHC RDW Plt Count Lymph % (Auto) [place] % (Auto) Lymph # [place] # Baso # Seg Neutrophils % Seg Neuts % (Manual) Lymphocytes % (Manual) Monocytes % (Manual) Eosinophils % (Manual) Basophils % (Manual) Nucleated RBC % Seg Neutrophils # Seg Neutrophils # Man Lymphocytes # (Manual) Monocytes # (Manual) Eosinophils # (Manual) PT INR Fibrinogen dRVVT Confirm Interp Factor V Activity POC ABG pH POC ABG pCO2 POC ABG pO2 74 L ABG pO2 ABG HCO3 ABG Base Excess ABG Hemoglobin Oxyhemoglobin Sodium Potassium Chloride Carbon Dioxide BUN Creatinine Glucose POC Glucose 211 H 215 H Lactic Acid Calcium Phosphorus Magnesium Direct Bilirubin AST ALT Alkaline Phosphatase Lactate Dehydrogenase Troponin T C-Reactive Protein Total Protein Albumin Prealbumin Triglycerides Cholesterol LDL Cholesterol Direct HDL Cholesterol Urine pH Urine WBC (Auto) Urine Creatinine Urine Total Protein Fluid Total Protein Vancomycin Trough Rheumatoid Factor Complement C4 Miscellaneous Test Crossmatch 09/10/16 09/10/16 09/10/16 05:17 05:17 11:31 WBC 15.8 H RBC 3.25 L Hgb 7.3 L Hct 22.9 L MCV 71 L MCH 23 L MCHC RDW 18.4 H Plt Count Lymph % (Auto) [place] % (Auto) Lymph # [place] # Baso # Seg Neutrophils % Seg Neuts % (Manual) 91.0 H Lymphocytes % (Manual) 4.0 L Monocytes % (Manual) Eosinophils % (Manual) Basophils % (Manual) Nucleated RBC % Seg Neutrophils # Seg Neutrophils # Man 14.4 H Lymphocytes # (Manual) 0.6 L Monocytes # (Manual) Eosinophils # (Manual) PT INR Fibrinogen dRVVT Confirm Interp Factor V Activity POC ABG pH POC ABG pCO2 POC ABG pO2 ABG pO2 ABG HCO3 ABG Base Excess ABG Hemoglobin Oxyhemoglobin Sodium Potassium Chloride Carbon Dioxide 21 L BUN 93 H Creatinine 2.9 H Glucose 146 H POC Glucose 188 H Lactic Acid Calcium 8.1 L Phosphorus Magnesium Direct Bilirubin AST ALT Alkaline Phosphatase Lactate Dehydrogenase Troponin T C-Reactive Protein Total Protein Albumin Prealbumin Triglycerides Cholesterol LDL Cholesterol Direct HDL Cholesterol Urine pH Urine WBC (Auto) Urine Creatinine Urine Total Protein Fluid Total Protein Vancomycin Trough Rheumatoid Factor Complement C4 Miscellaneous Test Crossmatch 09/10/16 09/10/16 09/10/16 13:17 17:20 23:32 WBC RBC Hgb Hct MCV MCH MCHC RDW Plt Count Lymph % (Auto) [place] % (Auto) Lymph # [place] # Baso # Seg Neutrophils % Seg Neuts % (Manual) Lymphocytes % (Manual) Monocytes % (Manual) Eosinophils % (Manual) Basophils % (Manual) Nucleated RBC % Seg Neutrophils # Seg Neutrophils # Man Lymphocytes # (Manual) Monocytes # (Manual) Eosinophils # (Manual) PT INR Fibrinogen dRVVT Confirm Interp Factor V Activity POC ABG pH POC ABG pCO2 POC ABG pO2 ABG pO2 ABG HCO3 ABG Base Excess ABG Hemoglobin Oxyhemoglobin Sodium Potassium Chloride Carbon Dioxide BUN Creatinine Glucose POC Glucose 199 H 186 H Lactic Acid Calcium Phosphorus Magnesium Direct Bilirubin AST ALT Alkaline Phosphatase Lactate Dehydrogenase Troponin T C-Reactive Protein Total Protein Albumin Prealbumin Triglycerides Cholesterol LDL Cholesterol Direct HDL Cholesterol Urine pH Urine WBC (Auto) Urine Creatinine Urine Total Protein Fluid Total Protein Vancomycin Trough Rheumatoid Factor Complement C4 Miscellaneous Test Crossmatch See Detail 09/11/16 09/11/16 09/11/16 05:10 05:10 05:17 WBC 28.4 H RBC Hgb 9.2 L Hct 29.3 L D MCV 73 L MCH 23 L MCHC RDW 18.9 H Plt Count 452 H Lymph % (Auto) [place] % (Auto) Lymph # [place] # Baso # Seg Neutrophils % Seg Neuts % (Manual) 89.5 H Lymphocytes % (Manual) 2.0 L Monocytes % (Manual) Eosinophils % (Manual) Basophils % (Manual) Nucleated RBC % Seg Neutrophils # Seg Neutrophils # Man 25.4 H Lymphocytes # (Manual) 0.6 L Monocytes # (Manual) 1.3 H Eosinophils # (Manual) PT INR Fibrinogen dRVVT Confirm Interp Factor V Activity POC ABG pH POC ABG pCO2 POC ABG pO2 ABG pO2 ABG HCO3 ABG Base Excess ABG Hemoglobin Oxyhemoglobin Sodium 136 L Potassium Chloride Carbon Dioxide 18 L BUN 107 H Creatinine 2.6 H Glucose 187 H POC Glucose 230 H Lactic Acid Calcium 8.3 L Phosphorus Magnesium Direct Bilirubin AST ALT Alkaline Phosphatase Lactate Dehydrogenase Troponin T C-Reactive Protein Total Protein Albumin Prealbumin Triglycerides Cholesterol LDL Cholesterol Direct HDL Cholesterol Urine pH Urine WBC (Auto) Urine Creatinine Urine Total Protein Fluid Total Protein Vancomycin Trough Rheumatoid Factor Complement C4 Miscellaneous Test Crossmatch 09/11/16 09/11/16 09/11/16 05:55 12:02 17:32 WBC RBC Hgb Hct MCV MCH MCHC RDW Plt Count Lymph % (Auto) [place] % (Auto) Lymph # [place] # Baso # Seg Neutrophils % Seg Neuts % (Manual) Lymphocytes % (Manual) Monocytes % (Manual) Eosinophils % (Manual) Basophils % (Manual) Nucleated RBC % Seg Neutrophils # Seg Neutrophils # Man Lymphocytes # (Manual) Monocytes # (Manual) Eosinophils # (Manual) PT INR Fibrinogen dRVVT Confirm Interp Factor V Activity POC ABG pH POC ABG pCO2 33.8 L POC ABG pO2 ABG pO2 ABG HCO3 ABG Base Excess ABG Hemoglobin Oxyhemoglobin Sodium Potassium Chloride Carbon Dioxide BUN Creatinine Glucose POC Glucose 191 H 239 H Lactic Acid Calcium Phosphorus Magnesium Direct Bilirubin AST ALT Alkaline Phosphatase Lactate Dehydrogenase Troponin T C-Reactive Protein Total Protein Albumin Prealbumin Triglycerides Cholesterol LDL Cholesterol Direct HDL Cholesterol Urine pH Urine WBC (Auto) Urine Creatinine Urine Total Protein Fluid Total Protein Vancomycin Trough Rheumatoid Factor Complement C4 Miscellaneous Test Crossmatch 09/11/16 09/12/16 09/12/16 23:52 05:09 05:32 WBC RBC Hgb Hct MCV MCH MCHC RDW Plt Count Lymph % (Auto) [place] % (Auto) Lymph # [place] # Baso # Seg Neutrophils % Seg Neuts % (Manual) Lymphocytes % (Manual) Monocytes % (Manual) Eosinophils % (Manual) Basophils % (Manual) Nucleated RBC % Seg Neutrophils # Seg Neutrophils # Man Lymphocytes # (Manual) Monocytes # (Manual) Eosinophils # (Manual) PT INR Fibrinogen dRVVT Confirm Interp Factor V Activity POC ABG pH POC ABG pCO2 34.6 L POC ABG pO2 ABG pO2 ABG HCO3 ABG Base Excess ABG Hemoglobin Oxyhemoglobin Sodium Potassium Chloride Carbon Dioxide BUN Creatinine Glucose POC Glucose 265 H 184 H Lactic Acid Calcium Phosphorus Magnesium Direct Bilirubin AST ALT Alkaline Phosphatase Lactate Dehydrogenase Troponin T C-Reactive Protein Total Protein Albumin Prealbumin Triglycerides Cholesterol LDL Cholesterol Direct HDL Cholesterol Urine pH Urine WBC (Auto) Urine Creatinine Urine Total Protein Fluid Total Protein Vancomycin Trough Rheumatoid Factor Complement C4 Miscellaneous Test Crossmatch 09/12/16 09/12/16 09/12/16 06:45 06:45 07:22 WBC 31.7 H RBC 3.54 L Hgb 8.3 L Hct 25.9 L MCV 73 L MCH 23 L MCHC RDW 18.9 H Plt Count Lymph % (Auto) [place] % (Auto) Lymph # [place] # Baso # Seg Neutrophils % Seg Neuts % (Manual) 88.5 H Lymphocytes % (Manual) 4.5 L Monocytes % (Manual) Eosinophils % (Manual) Basophils % (Manual) Nucleated RBC % Seg Neutrophils # Seg Neutrophils # Man 28.1 H Lymphocytes # (Manual) Monocytes # (Manual) 1.0 H Eosinophils # (Manual) PT INR Fibrinogen dRVVT Confirm Interp Factor V Activity POC ABG pH POC ABG pCO2 POC ABG pO2 ABG pO2 ABG HCO3 ABG Base Excess ABG Hemoglobin Oxyhemoglobin Sodium Potassium Chloride Carbon Dioxide 20 L BUN 115 H Creatinine 2.7 H Glucose 165 H POC Glucose Lactic Acid Calcium 8.0 L Phosphorus Magnesium Direct Bilirubin AST ALT Alkaline Phosphatase Lactate Dehydrogenase Troponin T C-Reactive Protein Total Protein Albumin Prealbumin Triglycerides 217 H Cholesterol LDL Cholesterol Direct HDL Cholesterol Urine pH Urine WBC (Auto) Urine Creatinine Urine Total Protein Fluid Total Protein Vancomycin Trough Rheumatoid Factor Complement C4 Miscellaneous Test Crossmatch 09/12/16 09/12/16 09/12/16 07:22 09:59 12:21 WBC RBC Hgb Hct MCV MCH MCHC RDW Plt Count Lymph % (Auto) [place] % (Auto) Lymph # [place] # Baso # Seg Neutrophils % Seg Neuts % (Manual) Lymphocytes % (Manual) Monocytes % (Manual) Eosinophils % (Manual) Basophils % (Manual) Nucleated RBC % Seg Neutrophils # Seg Neutrophils # Man Lymphocytes # (Manual) Monocytes # (Manual) Eosinophils # (Manual) PT INR Fibrinogen dRVVT Confirm Interp Positive H Factor V Activity POC ABG pH POC ABG pCO2 POC ABG pO2 ABG pO2 ABG HCO3 ABG Base Excess ABG Hemoglobin Oxyhemoglobin Sodium Potassium Chloride Carbon Dioxide BUN Creatinine Glucose POC Glucose 224 H Lactic Acid Calcium Phosphorus Magnesium Direct Bilirubin AST ALT Alkaline Phosphatase Lactate Dehydrogenase Troponin T C-Reactive Protein 1.70 H Total Protein Albumin Prealbumin Triglycerides Cholesterol LDL Cholesterol Direct HDL Cholesterol Urine pH Urine WBC (Auto) Urine Creatinine Urine Total Protein Fluid Total Protein Vancomycin Trough Rheumatoid Factor Complement C4 Miscellaneous Test Crossmatch 09/12/16 09/12/16 09/13/16 16:51 23:28 04:00 WBC 45.0 H* RBC Hgb 9.4 L Hct MCV 75 L MCH 23 L MCHC RDW 19.0 H Plt Count 470 H Lymph % (Auto) [place] % (Auto) Lymph # [place] # Baso # Seg Neutrophils % Seg Neuts % (Manual) 89.0 H Lymphocytes % (Manual) 5.0 L Monocytes % (Manual) Eosinophils % (Manual) Basophils % (Manual) Nucleated RBC % Seg Neutrophils # Seg Neutrophils # Man 40.1 H Lymphocytes # (Manual) Monocytes # (Manual) Eosinophils # (Manual) PT INR Fibrinogen dRVVT Confirm Interp Factor V Activity POC ABG pH POC ABG pCO2 POC ABG pO2 ABG pO2 ABG HCO3 ABG Base Excess ABG Hemoglobin Oxyhemoglobin Sodium Potassium Chloride Carbon Dioxide BUN Creatinine Glucose POC Glucose 169 H 150 H Lactic Acid Calcium Phosphorus Magnesium Direct Bilirubin AST ALT Alkaline Phosphatase Lactate Dehydrogenase Troponin T C-Reactive Protein Total Protein Albumin Prealbumin Triglycerides Cholesterol LDL Cholesterol Direct HDL Cholesterol Urine pH Urine WBC (Auto) Urine Creatinine Urine Total Protein Fluid Total Protein Vancomycin Trough Rheumatoid Factor Complement C4 Miscellaneous Test Crossmatch 09/13/16 09/13/16 09/13/16 04:00 11:26 17:31 WBC RBC Hgb Hct MCV MCH MCHC RDW Plt Count Lymph % (Auto) [place] % (Auto) Lymph # [place] # Baso # Seg Neutrophils % Seg Neuts % (Manual) Lymphocytes % (Manual) Monocytes % (Manual) Eosinophils % (Manual) Basophils % (Manual) Nucleated RBC % Seg Neutrophils # Seg Neutrophils # Man Lymphocytes # (Manual) Monocytes # (Manual) Eosinophils # (Manual) PT INR Fibrinogen dRVVT Confirm Interp Factor V Activity POC ABG pH POC ABG pCO2 POC ABG pO2 ABG pO2 ABG HCO3 ABG Base Excess ABG Hemoglobin Oxyhemoglobin Sodium Potassium Chloride Carbon Dioxide 20 L BUN 116 H Creatinine 3.0 H Glucose 172 H POC Glucose 140 H 183 H Lactic Acid Calcium Phosphorus Magnesium Direct Bilirubin AST ALT Alkaline Phosphatase Lactate Dehydrogenase Troponin T C-Reactive Protein Total Protein 6.2 L Albumin 2.9 L Prealbumin Triglycerides Cholesterol LDL Cholesterol Direct HDL Cholesterol Urine pH Urine WBC (Auto) Urine Creatinine Urine Total Protein Fluid Total Protein Vancomycin Trough Rheumatoid Factor Complement C4 Miscellaneous Test Crossmatch 09/13/16 09/14/16 09/14/16 23:23 04:06 04:07 WBC 29.4 H RBC Hgb 8.9 L Hct 27.3 L MCV 75 L MCH 24 L MCHC RDW 19.1 H Plt Count Lymph % (Auto) [place] % (Auto) Lymph # [place] # Baso # Seg Neutrophils % Seg Neuts % (Manual) 84.0 H Lymphocytes % (Manual) 6.0 L Monocytes % (Manual) 9.0 H Eosinophils % (Manual) Basophils % (Manual) Nucleated RBC % Seg Neutrophils # Seg Neutrophils # Man 24.7 H Lymphocytes # (Manual) Monocytes # (Manual) 2.6 H Eosinophils # (Manual) PT INR Fibrinogen dRVVT Confirm Interp Factor V Activity POC ABG pH 7.342 L POC ABG pCO2 POC ABG pO2 116 H ABG pO2 ABG HCO3 ABG Base Excess ABG Hemoglobin Oxyhemoglobin Sodium Potassium Chloride Carbon Dioxide BUN Creatinine Glucose POC Glucose 154 H Lactic Acid Calcium Phosphorus Magnesium Direct Bilirubin AST ALT Alkaline Phosphatase Lactate Dehydrogenase Troponin T C-Reactive Protein Total Protein Albumin Prealbumin Triglycerides Cholesterol LDL Cholesterol Direct HDL Cholesterol Urine pH Urine WBC (Auto) Urine Creatinine Urine Total Protein Fluid Total Protein Vancomycin Trough Rheumatoid Factor Complement C4 Miscellaneous Test Crossmatch 09/14/16 09/14/16 09/14/16 04:07 05:29 12:19 WBC RBC Hgb Hct MCV MCH MCHC RDW Plt Count Lymph % (Auto) [place] % (Auto) Lymph # [place] # Baso # Seg Neutrophils % Seg Neuts % (Manual) Lymphocytes % (Manual) Monocytes % (Manual) Eosinophils % (Manual) Basophils % (Manual) Nucleated RBC % Seg Neutrophils # Seg Neutrophils # Man Lymphocytes # (Manual) Monocytes # (Manual) Eosinophils # (Manual) PT INR Fibrinogen dRVVT Confirm Interp Factor V Activity POC ABG pH POC ABG pCO2 POC ABG pO2 ABG pO2 ABG HCO3 ABG Base Excess ABG Hemoglobin Oxyhemoglobin Sodium 136 L Potassium Chloride Carbon Dioxide 18 L BUN 121 H Creatinine 2.8 H Glucose 214 H POC Glucose 239 H 181 H Lactic Acid Calcium Phosphorus Magnesium Direct Bilirubin AST ALT Alkaline Phosphatase Lactate Dehydrogenase Troponin T C-Reactive Protein Total Protein Albumin Prealbumin Triglycerides Cholesterol LDL Cholesterol Direct HDL Cholesterol Urine pH Urine WBC (Auto) Urine Creatinine Urine Total Protein Fluid Total Protein Vancomycin Trough Rheumatoid Factor Complement C4 Miscellaneous Test Crossmatch 09/14/16 09/14/16 09/15/16 18:12 23:37 05:00 WBC 26.1 H RBC 3.05 L Hgb 7.2 L Hct 22.9 L MCV 75 L MCH 24 L MCHC RDW 19.0 H Plt Count Lymph % (Auto) [place] % (Auto) Lymph # [place] # Baso # Seg Neutrophils % Seg Neuts % (Manual) Lymphocytes % (Manual) Monocytes % (Manual) Eosinophils % (Manual) Basophils % (Manual) Nucleated RBC % Seg Neutrophils # Seg Neutrophils # Man Lymphocytes # (Manual) Monocytes # (Manual) Eosinophils # (Manual) PT INR Fibrinogen dRVVT Confirm Interp Factor V Activity POC ABG pH POC ABG pCO2 POC ABG pO2 ABG pO2 ABG HCO3 ABG Base Excess ABG Hemoglobin Oxyhemoglobin Sodium Potassium Chloride Carbon Dioxide BUN Creatinine Glucose POC Glucose 266 H 154 H Lactic Acid Calcium Phosphorus Magnesium Direct Bilirubin AST ALT Alkaline Phosphatase Lactate Dehydrogenase Troponin T C-Reactive Protein Total Protein Albumin Prealbumin Triglycerides Cholesterol LDL Cholesterol Direct HDL Cholesterol Urine pH Urine WBC (Auto) Urine Creatinine Urine Total Protein Fluid Total Protein Vancomycin Trough Rheumatoid Factor Complement C4 Miscellaneous Test Crossmatch 09/15/16 09/15/16 09/15/16 05:00 05:17 12:45 WBC RBC Hgb Hct MCV MCH MCHC RDW Plt Count Lymph % (Auto) [place] % (Auto) Lymph # [place] # Baso # Seg Neutrophils % Seg Neuts % (Manual) Lymphocytes % (Manual) Monocytes % (Manual) Eosinophils % (Manual) Basophils % (Manual) Nucleated RBC % Seg Neutrophils # Seg Neutrophils # Man Lymphocytes # (Manual) Monocytes # (Manual) Eosinophils # (Manual) PT INR Fibrinogen dRVVT Confirm Interp Factor V Activity POC ABG pH POC ABG pCO2 POC ABG pO2 ABG pO2 ABG HCO3 ABG Base Excess ABG Hemoglobin Oxyhemoglobin Sodium Potassium 5.2 H Chloride Carbon Dioxide 18 L BUN 139 H Creatinine 3.7 H Glucose 227 H POC Glucose 226 H 244 H Lactic Acid Calcium 8.3 L Phosphorus Magnesium Direct Bilirubin AST ALT Alkaline Phosphatase Lactate Dehydrogenase Troponin T C-Reactive Protein Total Protein Albumin Prealbumin Triglycerides Cholesterol LDL Cholesterol Direct HDL Cholesterol Urine pH Urine WBC (Auto) Urine Creatinine Urine Total Protein Fluid Total Protein Vancomycin Trough Rheumatoid Factor Complement C4 Miscellaneous Test Crossmatch 09/15/16 09/15/16 09/15/16 14:32 17:33 23:35 WBC RBC Hgb Hct MCV MCH MCHC RDW Plt Count Lymph % (Auto) [place] % (Auto) Lymph # [place] # Baso # Seg Neutrophils % Seg Neuts % (Manual) Lymphocytes % (Manual) Monocytes % (Manual) Eosinophils % (Manual) Basophils % (Manual) Nucleated RBC % Seg Neutrophils # Seg Neutrophils # Man Lymphocytes # (Manual) Monocytes # (Manual) Eosinophils # (Manual) PT INR Fibrinogen dRVVT Confirm Interp Factor V Activity POC ABG pH POC ABG pCO2 27.7 L POC ABG pO2 120 H ABG pO2 ABG HCO3 ABG Base Excess ABG Hemoglobin Oxyhemoglobin Sodium Potassium Chloride Carbon Dioxide BUN Creatinine Glucose POC Glucose 232 H 167 H Lactic Acid Calcium Phosphorus Magnesium Direct Bilirubin AST ALT Alkaline Phosphatase Lactate Dehydrogenase Troponin T C-Reactive Protein Total Protein Albumin Prealbumin Triglycerides Cholesterol LDL Cholesterol Direct HDL Cholesterol Urine pH Urine WBC (Auto) Urine Creatinine Urine Total Protein Fluid Total Protein Vancomycin Trough Rheumatoid Factor Complement C4 Miscellaneous Test Crossmatch 09/16/16 09/16/16 09/16/16 03:58 10:27 10:27 WBC 19.0 H RBC 2.77 L Hgb 6.5 L Hct 20.9 L MCV 76 L MCH 23 L MCHC RDW 19.3 H Plt Count Lymph % (Auto) 11.0 L [place] % (Auto) Lymph # [place] # 1.1 H Baso # Seg Neutrophils % 82.5 H Seg Neuts % (Manual) Lymphocytes % (Manual) Monocytes % (Manual) Eosinophils % (Manual) Basophils % (Manual) Nucleated RBC % Seg Neutrophils # 15.7 H Seg Neutrophils # Man Lymphocytes # (Manual) Monocytes # (Manual) Eosinophils # (Manual) PT INR Fibrinogen dRVVT Confirm Interp Factor V Activity POC ABG pH POC ABG pCO2 POC ABG pO2 ABG pO2 ABG HCO3 ABG Base Excess ABG Hemoglobin Oxyhemoglobin Sodium Potassium Chloride 109.3 H Carbon Dioxide 18 L BUN 139 H Creatinine 4.1 H Glucose 144 H POC Glucose 146 H Lactic Acid Calcium 8.1 L Phosphorus Magnesium Direct Bilirubin AST ALT Alkaline Phosphatase Lactate Dehydrogenase Troponin T C-Reactive Protein Total Protein Albumin Prealbumin Triglycerides Cholesterol LDL Cholesterol Direct HDL Cholesterol Urine pH Urine WBC (Auto) Urine Creatinine Urine Total Protein Fluid Total Protein Vancomycin Trough Rheumatoid Factor Complement C4 Miscellaneous Test Crossmatch 09/16/16 09/16/16 09/16/16 12:04 12:10 13:55 WBC RBC Hgb Hct MCV MCH MCHC RDW Plt Count Lymph % (Auto) [place] % (Auto) Lymph # [place] # Baso # Seg Neutrophils % Seg Neuts % (Manual) Lymphocytes % (Manual) Monocytes % (Manual) Eosinophils % (Manual) Basophils % (Manual) Nucleated RBC % Seg Neutrophils # Seg Neutrophils # Man Lymphocytes # (Manual) Monocytes # (Manual) Eosinophils # (Manual) PT INR Fibrinogen dRVVT Confirm Interp Factor V Activity POC ABG pH POC ABG pCO2 32.9 L POC ABG pO2 ABG pO2 ABG HCO3 ABG Base Excess ABG Hemoglobin Oxyhemoglobin Sodium Potassium Chloride Carbon Dioxide BUN Creatinine Glucose POC Glucose 185 H Lactic Acid Calcium Phosphorus Magnesium Direct Bilirubin AST ALT Alkaline Phosphatase Lactate Dehydrogenase Troponin T C-Reactive Protein Total Protein Albumin Prealbumin Triglycerides Cholesterol LDL Cholesterol Direct HDL Cholesterol Urine pH Urine WBC (Auto) Urine Creatinine Urine Total Protein Fluid Total Protein Vancomycin Trough Rheumatoid Factor Complement C4 Miscellaneous Test Crossmatch See Detail 09/16/16 09/16/16 09/16/16 17:55 19:19 23:48 WBC RBC Hgb Hct MCV MCH MCHC RDW Plt Count Lymph % (Auto) [place] % (Auto) Lymph # [place] # Baso # Seg Neutrophils % Seg Neuts % (Manual) Lymphocytes % (Manual) Monocytes % (Manual) Eosinophils % (Manual) Basophils % (Manual) Nucleated RBC % Seg Neutrophils # Seg Neutrophils # Man Lymphocytes # (Manual) Monocytes # (Manual) Eosinophils # (Manual) PT INR Fibrinogen dRVVT Confirm Interp Factor V Activity POC ABG pH POC ABG pCO2 POC ABG pO2 ABG pO2 ABG HCO3 ABG Base Excess ABG Hemoglobin Oxyhemoglobin Sodium Potassium Chloride Carbon Dioxide BUN Creatinine Glucose POC Glucose 222 H 107 H Lactic Acid Calcium Phosphorus Magnesium Direct Bilirubin AST ALT Alkaline Phosphatase Lactate Dehydrogenase Troponin T C-Reactive Protein Total Protein Albumin Prealbumin Triglycerides Cholesterol LDL Cholesterol Direct HDL Cholesterol Urine pH Urine WBC (Auto) Urine Creatinine 47.4 H Urine Total Protein 16 H Fluid Total Protein Vancomycin Trough Rheumatoid Factor Complement C4 Miscellaneous Test Crossmatch 09/17/16 09/17/16 09/17/16 03:45 03:45 04:55 WBC 19.6 H RBC 3.41 L Hgb 8.5 L Hct 26.7 L MCV 78 L MCH 25 L MCHC RDW 19.9 H Plt Count Lymph % (Auto) 9.3 L [place] % (Auto) Lymph # [place] # 1.2 H Baso # Seg Neutrophils % 83.9 H Seg Neuts % (Manual) Lymphocytes % (Manual) Monocytes % (Manual) Eosinophils % (Manual) Basophils % (Manual) Nucleated RBC % Seg Neutrophils # 16.4 H Seg Neutrophils # Man Lymphocytes # (Manual) Monocytes # (Manual) Eosinophils # (Manual) PT INR Fibrinogen dRVVT Confirm Interp Factor V Activity POC ABG pH POC ABG pCO2 POC ABG pO2 ABG pO2 ABG HCO3 ABG Base Excess ABG Hemoglobin Oxyhemoglobin Sodium 146 H Potassium 5.1 H Chloride 110.9 H Carbon Dioxide 16 L BUN 146 H Creatinine 4.0 H Glucose 108 H POC Glucose 133 H Lactic Acid Calcium Phosphorus Magnesium 3.00 H Direct Bilirubin AST ALT Alkaline Phosphatase Lactate Dehydrogenase Troponin T C-Reactive Protein Total Protein Albumin Prealbumin Triglycerides Cholesterol LDL Cholesterol Direct HDL Cholesterol Urine pH Urine WBC (Auto) Urine Creatinine Urine Total Protein Fluid Total Protein Vancomycin Trough Rheumatoid Factor Complement C4 Miscellaneous Test Crossmatch 09/17/16 09/17/16 09/17/16 11:15 17:33 23:47 WBC RBC Hgb Hct MCV MCH MCHC RDW Plt Count Lymph % (Auto) [place] % (Auto) Lymph # [place] # Baso # Seg Neutrophils % Seg Neuts % (Manual) Lymphocytes % (Manual) Monocytes % (Manual) Eosinophils % (Manual) Basophils % (Manual) Nucleated RBC % Seg Neutrophils # Seg Neutrophils # Man Lymphocytes # (Manual) Monocytes # (Manual) Eosinophils # (Manual) PT INR Fibrinogen dRVVT Confirm Interp Factor V Activity POC ABG pH POC ABG pCO2 POC ABG pO2 ABG pO2 ABG HCO3 ABG Base Excess ABG Hemoglobin Oxyhemoglobin Sodium Potassium Chloride Carbon Dioxide BUN Creatinine Glucose POC Glucose 176 H 246 H 148 H Lactic Acid Calcium Phosphorus Magnesium Direct Bilirubin AST ALT Alkaline Phosphatase Lactate Dehydrogenase Troponin T C-Reactive Protein Total Protein Albumin Prealbumin Triglycerides Cholesterol LDL Cholesterol Direct HDL Cholesterol Urine pH Urine WBC (Auto) Urine Creatinine Urine Total Protein Fluid Total Protein Vancomycin Trough Rheumatoid Factor Complement C4 Miscellaneous Test Crossmatch 09/18/16 09/18/16 09/18/16 05:33 08:31 08:31 WBC 18.0 H RBC 3.17 L Hgb 9.0 L Hct 25.7 L MCV MCH MCHC 35 H RDW 20.4 H Plt Count Lymph % (Auto) [place] % (Auto) Lymph # [place] # Baso # Seg Neutrophils % Seg Neuts % (Manual) Lymphocytes % (Manual) Monocytes % (Manual) Eosinophils % (Manual) Basophils % (Manual) Nucleated RBC % Seg Neutrophils # Seg Neutrophils # Man Lymphocytes # (Manual) Monocytes # (Manual) Eosinophils # (Manual) PT INR Fibrinogen dRVVT Confirm Interp Factor V Activity POC ABG pH POC ABG pCO2 POC ABG pO2 ABG pO2 ABG HCO3 ABG Base Excess ABG Hemoglobin Oxyhemoglobin Sodium Potassium Chloride Carbon Dioxide 15 L BUN 124 H Creatinine 3.8 H Glucose POC Glucose 120 H Lactic Acid Calcium 8.1 L Phosphorus Magnesium Direct Bilirubin AST ALT Alkaline Phosphatase Lactate Dehydrogenase Troponin T C-Reactive Protein Total Protein Albumin Prealbumin Triglycerides Cholesterol LDL Cholesterol Direct HDL Cholesterol Urine pH Urine WBC (Auto) Urine Creatinine Urine Total Protein Fluid Total Protein Vancomycin Trough Rheumatoid Factor Complement C4 Miscellaneous Test Crossmatch 09/18/16 09/18/16 09/18/16 12:03 15:34 17:50 WBC RBC Hgb Hct MCV MCH MCHC RDW Plt Count Lymph % (Auto) [place] % (Auto) Lymph # [place] # Baso # Seg Neutrophils % Seg Neuts % (Manual) Lymphocytes % (Manual) Monocytes % (Manual) Eosinophils % (Manual) Basophils % (Manual) Nucleated RBC % Seg Neutrophils # Seg Neutrophils # Man Lymphocytes # (Manual) Monocytes # (Manual) Eosinophils # (Manual) PT INR Fibrinogen dRVVT Confirm Interp Factor V Activity POC ABG pH POC ABG pCO2 25.7 L POC ABG pO2 66 L ABG pO2 ABG HCO3 ABG Base Excess ABG Hemoglobin Oxyhemoglobin Sodium Potassium Chloride Carbon Dioxide BUN Creatinine Glucose POC Glucose 156 H 220 H Lactic Acid Calcium Phosphorus Magnesium Direct Bilirubin AST ALT Alkaline Phosphatase Lactate Dehydrogenase Troponin T C-Reactive Protein Total Protein Albumin Prealbumin Triglycerides Cholesterol LDL Cholesterol Direct HDL Cholesterol Urine pH Urine WBC (Auto) Urine Creatinine Urine Total Protein Fluid Total Protein Vancomycin Trough Rheumatoid Factor Complement C4 Miscellaneous Test Crossmatch 09/19/16 09/19/16 09/19/16 06:21 09:50 09:50 WBC 17.1 H RBC 3.49 L Hgb 9.0 L Hct 28.1 L MCV MCH 26 L MCHC RDW 20.8 H Plt Count Lymph % (Auto) 11.5 L [place] % (Auto) 7.5 H Lymph # [place] # 1.3 H Baso # Seg Neutrophils % 79.8 H Seg Neuts % (Manual) Lymphocytes % (Manual) Monocytes % (Manual) Eosinophils % (Manual) Basophils % (Manual) Nucleated RBC % Seg Neutrophils # 13.7 H Seg Neutrophils # Man Lymphocytes # (Manual) Monocytes # (Manual) Eosinophils # (Manual) PT INR Fibrinogen dRVVT Confirm Interp Factor V Activity POC ABG pH POC ABG pCO2 POC ABG pO2 ABG pO2 ABG HCO3 ABG Base Excess ABG Hemoglobin Oxyhemoglobin Sodium Potassium Chloride 108.6 H Carbon Dioxide 15 L BUN 125 H Creatinine 4.1 H Glucose 124 H POC Glucose 119 H Lactic Acid Calcium Phosphorus Magnesium Direct Bilirubin AST ALT Alkaline Phosphatase Lactate Dehydrogenase Troponin T C-Reactive Protein Total Protein Albumin Prealbumin Triglycerides Cholesterol LDL Cholesterol Direct HDL Cholesterol Urine pH Urine WBC (Auto) Urine Creatinine Urine Total Protein Fluid Total Protein Vancomycin Trough Rheumatoid Factor Complement C4 Miscellaneous Test Crossmatch 09/19/16 09/19/16 09/19/16 11:25 17:53 23:36 WBC RBC Hgb Hct MCV MCH MCHC RDW Plt Count Lymph % (Auto) [place] % (Auto) Lymph # [place] # Baso # Seg Neutrophils % Seg Neuts % (Manual) Lymphocytes % (Manual) Monocytes % (Manual) Eosinophils % (Manual) Basophils % (Manual) Nucleated RBC % Seg Neutrophils # Seg Neutrophils # Man Lymphocytes # (Manual) Monocytes # (Manual) Eosinophils # (Manual) PT INR Fibrinogen dRVVT Confirm Interp Factor V Activity POC ABG pH POC ABG pCO2 POC ABG pO2 ABG pO2 ABG HCO3 ABG Base Excess ABG Hemoglobin Oxyhemoglobin Sodium Potassium Chloride Carbon Dioxide BUN Creatinine Glucose POC Glucose 160 H 245 H 121 H Lactic Acid Calcium Phosphorus Magnesium Direct Bilirubin AST ALT Alkaline Phosphatase Lactate Dehydrogenase Troponin T C-Reactive Protein Total Protein Albumin Prealbumin Triglycerides Cholesterol LDL Cholesterol Direct HDL Cholesterol Urine pH Urine WBC (Auto) Urine Creatinine Urine Total Protein Fluid Total Protein Vancomycin Trough Rheumatoid Factor Complement C4 Miscellaneous Test Crossmatch 09/20/16 09/20/16 09/20/16 04:10 04:10 04:10 WBC 17.0 H RBC 3.21 L Hgb 8.2 L Hct 25.5 L MCV MCH 26 L MCHC RDW 20.9 H Plt Count Lymph % (Auto) [place] % (Auto) Lymph # [place] # Baso # Seg Neutrophils % Seg Neuts % (Manual) Lymphocytes % (Manual) Monocytes % (Manual) Eosinophils % (Manual) Basophils % (Manual) Nucleated RBC % Seg Neutrophils # Seg Neutrophils # Man Lymphocytes # (Manual) Monocytes # (Manual) Eosinophils # (Manual) PT INR Fibrinogen dRVVT Confirm Interp Factor V Activity POC ABG pH POC ABG pCO2 POC ABG pO2 ABG pO2 ABG HCO3 ABG Base Excess ABG Hemoglobin Oxyhemoglobin Sodium Potassium Chloride 111.0 H Carbon Dioxide 16 L BUN 129 H Creatinine 3.7 H Glucose 115 H POC Glucose Lactic Acid Calcium 8.2 L Phosphorus Magnesium Direct Bilirubin AST ALT Alkaline Phosphatase Lactate Dehydrogenase Troponin T C-Reactive Protein Total Protein Albumin Prealbumin Triglycerides 243 H Cholesterol LDL Cholesterol Direct HDL Cholesterol Urine pH Urine WBC (Auto) Urine Creatinine Urine Total Protein Fluid Total Protein Vancomycin Trough Rheumatoid Factor Complement C4 Miscellaneous Test Crossmatch 09/20/16 09/20/16 09/20/16 05:40 11:52 16:50 WBC RBC Hgb Hct MCV MCH MCHC RDW Plt Count Lymph % (Auto) [place] % (Auto) Lymph # [place] # Baso # Seg Neutrophils % Seg Neuts % (Manual) Lymphocytes % (Manual) Monocytes % (Manual) Eosinophils % (Manual) Basophils % (Manual) Nucleated RBC % Seg Neutrophils # Seg Neutrophils # Man Lymphocytes # (Manual) Monocytes # (Manual) Eosinophils # (Manual) PT INR Fibrinogen dRVVT Confirm Interp Factor V Activity POC ABG pH POC ABG pCO2 POC ABG pO2 ABG pO2 ABG HCO3 ABG Base Excess ABG Hemoglobin Oxyhemoglobin Sodium Potassium Chloride Carbon Dioxide BUN Creatinine Glucose POC Glucose 131 H 183 H 236 H Lactic Acid Calcium Phosphorus Magnesium Direct Bilirubin AST ALT Alkaline Phosphatase Lactate Dehydrogenase Troponin T C-Reactive Protein Total Protein Albumin Prealbumin Triglycerides Cholesterol LDL Cholesterol Direct HDL Cholesterol Urine pH Urine WBC (Auto) Urine Creatinine Urine Total Protein Fluid Total Protein Vancomycin Trough Rheumatoid Factor Complement C4 Miscellaneous Test Crossmatch 09/20/16 09/21/16 09/21/16 23:51 03:30 04:44 WBC RBC Hgb Hct MCV MCH MCHC RDW Plt Count Lymph % (Auto) [place] % (Auto) Lymph # [place] # Baso # Seg Neutrophils % Seg Neuts % (Manual) Lymphocytes % (Manual) Monocytes % (Manual) Eosinophils % (Manual) Basophils % (Manual) Nucleated RBC % Seg Neutrophils # Seg Neutrophils # Man Lymphocytes # (Manual) Monocytes # (Manual) Eosinophils # (Manual) PT INR Fibrinogen dRVVT Confirm Interp Factor V Activity POC ABG pH POC ABG pCO2 POC ABG pO2 ABG pO2 ABG HCO3 ABG Base Excess ABG Hemoglobin Oxyhemoglobin Sodium Potassium Chloride Carbon Dioxide BUN Creatinine Glucose POC Glucose 114 H 141 H Lactic Acid Calcium Phosphorus Magnesium 2.70 H Direct Bilirubin AST ALT Alkaline Phosphatase Lactate Dehydrogenase Troponin T C-Reactive Protein Total Protein Albumin Prealbumin Triglycerides Cholesterol LDL Cholesterol Direct HDL Cholesterol Urine pH Urine WBC (Auto) Urine Creatinine Urine Total Protein Fluid Total Protein Vancomycin Trough Rheumatoid Factor Complement C4 Miscellaneous Test Crossmatch 09/21/16 09/21/16 09/21/16 07:45 07:45 10:01 WBC 13.8 H RBC 2.94 L Hgb 7.5 L Hct 23.5 L MCV MCH 26 L MCHC RDW 21.2 H Plt Count Lymph % (Auto) 6.9 L [place] % (Auto) 9.4 H Lymph # 0.9 L [place] # 1.3 H Baso # Seg Neutrophils % 83.2 H Seg Neuts % (Manual) Lymphocytes % (Manual) Monocytes % (Manual) Eosinophils % (Manual) Basophils % (Manual) Nucleated RBC % Seg Neutrophils # 11.5 H Seg Neutrophils # Man Lymphocytes # (Manual) Monocytes # (Manual) Eosinophils # (Manual) PT INR Fibrinogen dRVVT Confirm Interp Factor V Activity POC ABG pH 7.308 L POC ABG pCO2 31.9 L POC ABG pO2 148 H ABG pO2 ABG HCO3 ABG Base Excess ABG Hemoglobin Oxyhemoglobin Sodium 147 H Potassium Chloride 114.2 H Carbon Dioxide 15 L BUN 120 H Creatinine 3.9 H Glucose 156 H POC Glucose Lactic Acid Calcium 8.2 L Phosphorus Magnesium Direct Bilirubin AST ALT Alkaline Phosphatase Lactate Dehydrogenase Troponin T C-Reactive Protein Total Protein Albumin Prealbumin Triglycerides Cholesterol LDL Cholesterol Direct HDL Cholesterol Urine pH Urine WBC (Auto) Urine Creatinine Urine Total Protein Fluid Total Protein Vancomycin Trough Rheumatoid Factor Complement C4 Miscellaneous Test Crossmatch 09/21/16 09/21/16 09/21/16 12:00 12:03 13:00 WBC RBC Hgb Hct MCV MCH MCHC RDW Plt Count Lymph % (Auto) [place] % (Auto) Lymph # [place] # Baso # Seg Neutrophils % Seg Neuts % (Manual) Lymphocytes % (Manual) Monocytes % (Manual) Eosinophils % (Manual) Basophils % (Manual) Nucleated RBC % Seg Neutrophils # Seg Neutrophils # Man Lymphocytes # (Manual) Monocytes # (Manual) Eosinophils # (Manual) PT INR Fibrinogen dRVVT Confirm Interp Factor V Activity POC ABG pH POC ABG pCO2 POC ABG pO2 ABG pO2 ABG HCO3 ABG Base Excess ABG Hemoglobin Oxyhemoglobin Sodium Potassium Chloride Carbon Dioxide BUN Creatinine Glucose POC Glucose 163 H Lactic Acid Calcium Phosphorus Magnesium Direct Bilirubin AST ALT Alkaline Phosphatase Lactate Dehydrogenase Troponin T C-Reactive Protein Total Protein Albumin Prealbumin Triglycerides Cholesterol LDL Cholesterol Direct HDL Cholesterol Urine pH Urine WBC (Auto) Urine Creatinine 54.8 H Urine Total Protein Fluid Total Protein Vancomycin Trough 2.3 L Rheumatoid Factor Complement C4 Miscellaneous Test Crossmatch 09/21/16 09/21/16 09/22/16 16:51 23:17 06:27 WBC RBC Hgb Hct MCV MCH MCHC RDW Plt Count Lymph % (Auto) [place] % (Auto) Lymph # [place] # Baso # Seg Neutrophils % Seg Neuts % (Manual) Lymphocytes % (Manual) Monocytes % (Manual) Eosinophils % (Manual) Basophils % (Manual) Nucleated RBC % Seg Neutrophils # Seg Neutrophils # Man Lymphocytes # (Manual) Monocytes # (Manual) Eosinophils # (Manual) PT INR Fibrinogen dRVVT Confirm Interp Factor V Activity POC ABG pH POC ABG pCO2 POC ABG pO2 ABG pO2 ABG HCO3 ABG Base Excess ABG Hemoglobin Oxyhemoglobin Sodium Potassium Chloride Carbon Dioxide BUN Creatinine Glucose POC Glucose 206 H 114 H 115 H Lactic Acid Calcium Phosphorus Magnesium Direct Bilirubin AST ALT Alkaline Phosphatase Lactate Dehydrogenase Troponin T C-Reactive Protein Total Protein Albumin Prealbumin Triglycerides Cholesterol LDL Cholesterol Direct HDL Cholesterol Urine pH Urine WBC (Auto) Urine Creatinine Urine Total Protein Fluid Total Protein Vancomycin Trough Rheumatoid Factor Complement C4 Miscellaneous Test Crossmatch 09/22/16 09/22/16 09/22/16 07:50 07:50 12:00 WBC 17.8 H RBC 3.04 L Hgb 8.0 L Hct 24.7 L MCV MCH 26 L MCHC RDW 21.6 H Plt Count Lymph % (Auto) [place] % (Auto) Lymph # [place] # Baso # Seg Neutrophils % Seg Neuts % (Manual) Lymphocytes % (Manual) Monocytes % (Manual) Eosinophils % (Manual) Basophils % (Manual) Nucleated RBC % Seg Neutrophils # Seg Neutrophils # Man Lymphocytes # (Manual) Monocytes # (Manual) Eosinophils # (Manual) PT INR Fibrinogen dRVVT Confirm Interp Factor V Activity POC ABG pH POC ABG pCO2 POC ABG pO2 ABG pO2 ABG HCO3 ABG Base Excess ABG Hemoglobin Oxyhemoglobin Sodium 150 H Potassium Chloride 118.2 H Carbon Dioxide 14 L BUN 111 H Creatinine 3.7 H Glucose 157 H POC Glucose 183 H Lactic Acid Calcium Phosphorus Magnesium Direct Bilirubin AST ALT Alkaline Phosphatase Lactate Dehydrogenase Troponin T C-Reactive Protein Total Protein Albumin Prealbumin Triglycerides Cholesterol LDL Cholesterol Direct HDL Cholesterol Urine pH Urine WBC (Auto) Urine Creatinine Urine Total Protein Fluid Total Protein Vancomycin Trough Rheumatoid Factor Complement C4 Miscellaneous Test Crossmatch 09/22/16 09/22/16 09/23/16 17:29 23:10 05:00 WBC 19.2 H RBC 3.13 L Hgb 8.0 L Hct 25.2 L MCV MCH 26 L MCHC RDW 22.1 H Plt Count Lymph % (Auto) [place] % (Auto) Lymph # [place] # Baso # Seg Neutrophils % Seg Neuts % (Manual) 92.0 H Lymphocytes % (Manual) 3.0 L Monocytes % (Manual) Eosinophils % (Manual) Basophils % (Manual) Nucleated RBC % Seg Neutrophils # Seg Neutrophils # Man 17.7 H Lymphocytes # (Manual) 0.6 L Monocytes # (Manual) Eosinophils # (Manual) PT INR Fibrinogen dRVVT Confirm Interp Factor V Activity POC ABG pH POC ABG pCO2 POC ABG pO2 ABG pO2 ABG HCO3 ABG Base Excess ABG Hemoglobin Oxyhemoglobin Sodium Potassium Chloride Carbon Dioxide BUN Creatinine Glucose POC Glucose 197 H 169 H Lactic Acid Calcium Phosphorus Magnesium Direct Bilirubin AST ALT Alkaline Phosphatase Lactate Dehydrogenase Troponin T C-Reactive Protein Total Protein Albumin Prealbumin Triglycerides Cholesterol LDL Cholesterol Direct HDL Cholesterol Urine pH Urine WBC (Auto) Urine Creatinine Urine Total Protein Fluid Total Protein Vancomycin Trough Rheumatoid Factor Complement C4 Miscellaneous Test Crossmatch 09/23/16 09/23/16 09/23/16 05:00 05:00 05:10 WBC RBC Hgb Hct MCV MCH MCHC RDW Plt Count Lymph % (Auto) [place] % (Auto) Lymph # [place] # Baso # Seg Neutrophils % Seg Neuts % (Manual) Lymphocytes % (Manual) Monocytes % (Manual) Eosinophils % (Manual) Basophils % (Manual) Nucleated RBC % Seg Neutrophils # Seg Neutrophils # Man Lymphocytes # (Manual) Monocytes # (Manual) Eosinophils # (Manual) PT INR Fibrinogen dRVVT Confirm Interp Factor V Activity POC ABG pH POC ABG pCO2 POC ABG pO2 ABG pO2 ABG HCO3 ABG Base Excess ABG Hemoglobin Oxyhemoglobin Sodium 147 H Potassium 3.2 L Chloride 115.7 H Carbon Dioxide 13 L BUN 111 H Creatinine 3.8 H Glucose 194 H POC Glucose 188 H Lactic Acid Calcium 7.3 L D Phosphorus Magnesium Direct Bilirubin AST ALT Alkaline Phosphatase Lactate Dehydrogenase Troponin T C-Reactive Protein 3.20 H Total Protein Albumin Prealbumin Triglycerides Cholesterol LDL Cholesterol Direct HDL Cholesterol Urine pH Urine WBC (Auto) Urine Creatinine Urine Total Protein Fluid Total Protein Vancomycin Trough Rheumatoid Factor Complement C4 Miscellaneous Test Crossmatch 09/23/16 09/23/16 09/23/16 11:37 12:29 18:01 WBC RBC Hgb Hct MCV MCH MCHC RDW Plt Count Lymph % (Auto) [place] % (Auto) Lymph # [place] # Baso # Seg Neutrophils % Seg Neuts % (Manual) Lymphocytes % (Manual) Monocytes % (Manual) Eosinophils % (Manual) Basophils % (Manual) Nucleated RBC % Seg Neutrophils # Seg Neutrophils # Man Lymphocytes # (Manual) Monocytes # (Manual) Eosinophils # (Manual) PT INR Fibrinogen dRVVT Confirm Interp Factor V Activity POC ABG pH POC ABG pCO2 18.9 L POC ABG pO2 143 H ABG pO2 ABG HCO3 ABG Base Excess ABG Hemoglobin Oxyhemoglobin Sodium Potassium Chloride Carbon Dioxide BUN Creatinine Glucose POC Glucose 153 H 108 H Lactic Acid Calcium Phosphorus Magnesium Direct Bilirubin AST ALT Alkaline Phosphatase Lactate Dehydrogenase Troponin T C-Reactive Protein Total Protein Albumin Prealbumin Triglycerides Cholesterol LDL Cholesterol Direct HDL Cholesterol Urine pH Urine WBC (Auto) Urine Creatinine Urine Total Protein Fluid Total Protein Vancomycin Trough Rheumatoid Factor Complement C4 Miscellaneous Test Crossmatch 09/23/16 09/23/16 09/24/16 21:19 23:43 05:16 WBC RBC Hgb Hct MCV MCH MCHC RDW Plt Count Lymph % (Auto) [place] % (Auto) Lymph # [place] # Baso # Seg Neutrophils % Seg Neuts % (Manual) Lymphocytes % (Manual) Monocytes % (Manual) Eosinophils % (Manual) Basophils % (Manual) Nucleated RBC % Seg Neutrophils # Seg Neutrophils # Man Lymphocytes # (Manual) Monocytes # (Manual) Eosinophils # (Manual) PT INR Fibrinogen dRVVT Confirm Interp Factor V Activity POC ABG pH POC ABG pCO2 17.3 L POC ABG pO2 112 H ABG pO2 ABG HCO3 ABG Base Excess ABG Hemoglobin Oxyhemoglobin Sodium Potassium Chloride Carbon Dioxide BUN Creatinine Glucose POC Glucose 143 H 164 H Lactic Acid Calcium Phosphorus Magnesium Direct Bilirubin AST ALT Alkaline Phosphatase Lactate Dehydrogenase Troponin T C-Reactive Protein Total Protein Albumin Prealbumin Triglycerides Cholesterol LDL Cholesterol Direct HDL Cholesterol Urine pH Urine WBC (Auto) Urine Creatinine Urine Total Protein Fluid Total Protein Vancomycin Trough Rheumatoid Factor Complement C4 Miscellaneous Test Crossmatch 09/24/16 09/24/16 09/24/16 05:21 11:58 17:06 WBC RBC Hgb Hct MCV MCH MCHC RDW Plt Count Lymph % (Auto) [place] % (Auto) Lymph # [place] # Baso # Seg Neutrophils % Seg Neuts % (Manual) Lymphocytes % (Manual) Monocytes % (Manual) Eosinophils % (Manual) Basophils % (Manual) Nucleated RBC % Seg Neutrophils # Seg Neutrophils # Man Lymphocytes # (Manual) Monocytes # (Manual) Eosinophils # (Manual) PT INR Fibrinogen dRVVT Confirm Interp Factor V Activity POC ABG pH POC ABG pCO2 POC ABG pO2 ABG pO2 ABG HCO3 ABG Base Excess ABG Hemoglobin Oxyhemoglobin Sodium Potassium Chloride Carbon Dioxide 10 L BUN 103 H Creatinine 4.3 H Glucose 163 H POC Glucose 173 H 167 H Lactic Acid Calcium 6.5 L Phosphorus Magnesium Direct Bilirubin AST ALT Alkaline Phosphatase Lactate Dehydrogenase Troponin T C-Reactive Protein Total Protein Albumin Prealbumin Triglycerides Cholesterol LDL Cholesterol Direct HDL Cholesterol Urine pH Urine WBC (Auto) Urine Creatinine Urine Total Protein Fluid Total Protein Vancomycin Trough Rheumatoid Factor Complement C4 Miscellaneous Test Crossmatch 09/24/16 09/24/16 09/24/16 20:15 21:02 23:48 WBC RBC Hgb Hct MCV MCH MCHC RDW Plt Count Lymph % (Auto) [place] % (Auto) Lymph # [place] # Baso # Seg Neutrophils % Seg Neuts % (Manual) Lymphocytes % (Manual) Monocytes % (Manual) Eosinophils % (Manual) Basophils % (Manual) Nucleated RBC % Seg Neutrophils # Seg Neutrophils # Man Lymphocytes # (Manual) Monocytes # (Manual) Eosinophils # (Manual) PT INR Fibrinogen dRVVT Confirm Interp Factor V Activity POC ABG pH 7.288 L POC ABG pCO2 30.2 L 21.5 L POC ABG pO2 32 L 39 L ABG pO2 ABG HCO3 ABG Base Excess ABG Hemoglobin Oxyhemoglobin Sodium Potassium Chloride Carbon Dioxide BUN Creatinine Glucose POC Glucose 109 H Lactic Acid Calcium Phosphorus Magnesium Direct Bilirubin AST ALT Alkaline Phosphatase Lactate Dehydrogenase Troponin T C-Reactive Protein Total Protein Albumin Prealbumin Triglycerides Cholesterol LDL Cholesterol Direct HDL Cholesterol Urine pH Urine WBC (Auto) Urine Creatinine Urine Total Protein Fluid Total Protein Vancomycin Trough Rheumatoid Factor Complement C4 Miscellaneous Test Crossmatch 09/25/16 09/25/16 09/25/16 04:20 04:20 04:20 WBC RBC 2.58 L Hgb 7.0 L Hct 21.0 L MCV MCH 27 L MCHC RDW 23.8 H Plt Count Lymph % (Auto) [place] % (Auto) Lymph # [place] # Baso # Seg Neutrophils % Seg Neuts % (Manual) Lymphocytes % (Manual) 12.0 L Monocytes % (Manual) Eosinophils % (Manual) 7.0 H Basophils % (Manual) 2.0 H Nucleated RBC % Seg Neutrophils # Seg Neutrophils # Man Lymphocytes # (Manual) 0.9 L Monocytes # (Manual) Eosinophils # (Manual) 0.5 H PT INR Fibrinogen dRVVT Confirm Interp Factor V Activity POC ABG pH POC ABG pCO2 POC ABG pO2 ABG pO2 ABG HCO3 ABG Base Excess ABG Hemoglobin Oxyhemoglobin Sodium Potassium Chloride Carbon Dioxide 15 L BUN 72 H Creatinine 3.8 H Glucose POC Glucose Lactic Acid Calcium 6.0 L Phosphorus 4.60 H Magnesium 1.60 L Direct Bilirubin AST ALT Alkaline Phosphatase Lactate Dehydrogenase Troponin T C-Reactive Protein Total Protein Albumin Prealbumin Triglycerides Cholesterol LDL Cholesterol Direct HDL Cholesterol Urine pH Urine WBC (Auto) Urine Creatinine Urine Total Protein Fluid Total Protein Vancomycin Trough Rheumatoid Factor Complement C4 Miscellaneous Test Crossmatch 09/25/16 09/25/16 09/25/16 04:57 08:02 10:30 WBC RBC Hgb Hct MCV MCH MCHC RDW Plt Count Lymph % (Auto) [place] % (Auto) Lymph # [place] # Baso # Seg Neutrophils % Seg Neuts % (Manual) Lymphocytes % (Manual) Monocytes % (Manual) Eosinophils % (Manual) Basophils % (Manual) Nucleated RBC % Seg Neutrophils # Seg Neutrophils # Man Lymphocytes # (Manual) Monocytes # (Manual) Eosinophils # (Manual) PT INR Fibrinogen dRVVT Confirm Interp Factor V Activity POC ABG pH POC ABG pCO2 24.7 L POC ABG pO2 152 H ABG pO2 ABG HCO3 ABG Base Excess ABG Hemoglobin Oxyhemoglobin Sodium Potassium Chloride Carbon Dioxide BUN Creatinine Glucose POC Glucose 113 H Lactic Acid Calcium Phosphorus Magnesium Direct Bilirubin AST ALT Alkaline Phosphatase Lactate Dehydrogenase Troponin T C-Reactive Protein Total Protein Albumin Prealbumin Triglycerides Cholesterol LDL Cholesterol Direct HDL Cholesterol Urine pH Urine WBC (Auto) Urine Creatinine Urine Total Protein Fluid Total Protein Vancomycin Trough Rheumatoid Factor Complement C4 Miscellaneous Test Crossmatch See Detail 09/25/16 09/25/16 09/25/16 12:05 17:44 23:47 WBC RBC Hgb Hct MCV MCH MCHC RDW Plt Count Lymph % (Auto) [place] % (Auto) Lymph # [place] # Baso # Seg Neutrophils % Seg Neuts % (Manual) Lymphocytes % (Manual) Monocytes % (Manual) Eosinophils % (Manual) Basophils % (Manual) Nucleated RBC % Seg Neutrophils # Seg Neutrophils # Man Lymphocytes # (Manual) Monocytes # (Manual) Eosinophils # (Manual) PT INR Fibrinogen dRVVT Confirm Interp Factor V Activity POC ABG pH POC ABG pCO2 POC ABG pO2 ABG pO2 ABG HCO3 ABG Base Excess ABG Hemoglobin Oxyhemoglobin Sodium Potassium Chloride Carbon Dioxide BUN Creatinine Glucose POC Glucose 117 H 119 H 150 H Lactic Acid Calcium Phosphorus Magnesium Direct Bilirubin AST ALT Alkaline Phosphatase Lactate Dehydrogenase Troponin T C-Reactive Protein Total Protein Albumin Prealbumin Triglycerides Cholesterol LDL Cholesterol Direct HDL Cholesterol Urine pH Urine WBC (Auto) Urine Creatinine Urine Total Protein Fluid Total Protein Vancomycin Trough Rheumatoid Factor Complement C4 Miscellaneous Test Crossmatch 09/26/16 09/26/16 09/26/16 04:25 04:25 04:25 WBC RBC 2.65 L Hgb 7.4 L Hct 21.6 L MCV MCH MCHC RDW 22.5 H Plt Count Lymph % (Auto) [place] % (Auto) Lymph # [place] # Baso # Seg Neutrophils % Seg Neuts % (Manual) Lymphocytes % (Manual) 6.0 L Monocytes % (Manual) Eosinophils % (Manual) 11.0 H Basophils % (Manual) Nucleated RBC % Seg Neutrophils # Seg Neutrophils # Man Lymphocytes # (Manual) 0.4 L Monocytes # (Manual) Eosinophils # (Manual) 0.6 H PT INR Fibrinogen dRVVT Confirm Interp Factor V Activity POC ABG pH POC ABG pCO2 POC ABG pO2 ABG pO2 ABG HCO3 ABG Base Excess ABG Hemoglobin Oxyhemoglobin Sodium Potassium Chloride 97.0 L Carbon Dioxide 19 L BUN 43 H Creatinine 2.6 H Glucose 130 H POC Glucose Lactic Acid 4.40 H* Calcium 6.7 L Phosphorus Magnesium Direct Bilirubin AST ALT Alkaline Phosphatase Lactate Dehydrogenase Troponin T C-Reactive Protein Total Protein Albumin Prealbumin Triglycerides Cholesterol LDL Cholesterol Direct HDL Cholesterol Urine pH Urine WBC (Auto) Urine Creatinine Urine Total Protein Fluid Total Protein Vancomycin Trough Rheumatoid Factor Complement C4 Miscellaneous Test Crossmatch 09/26/16 09/26/16 09/26/16 05:20 11:44 12:12 WBC RBC Hgb Hct MCV MCH MCHC RDW Plt Count Lymph % (Auto) [place] % (Auto) Lymph # [place] # Baso # Seg Neutrophils % Seg Neuts % (Manual) Lymphocytes % (Manual) Monocytes % (Manual) Eosinophils % (Manual) Basophils % (Manual) Nucleated RBC % Seg Neutrophils # Seg Neutrophils # Man Lymphocytes # (Manual) Monocytes # (Manual) Eosinophils # (Manual) PT INR Fibrinogen dRVVT Confirm Interp Factor V Activity POC ABG pH POC ABG pCO2 27.0 L POC ABG pO2 69 L ABG pO2 ABG HCO3 ABG Base Excess ABG Hemoglobin Oxyhemoglobin Sodium Potassium Chloride Carbon Dioxide BUN Creatinine Glucose POC Glucose 121 H 128 H Lactic Acid Calcium Phosphorus Magnesium Direct Bilirubin AST ALT Alkaline Phosphatase Lactate Dehydrogenase Troponin T C-Reactive Protein Total Protein Albumin Prealbumin Triglycerides Cholesterol LDL Cholesterol Direct HDL Cholesterol Urine pH Urine WBC (Auto) Urine Creatinine Urine Total Protein Fluid Total Protein Vancomycin Trough Rheumatoid Factor Complement C4 Miscellaneous Test Crossmatch 09/26/16 09/26/16 09/27/16 18:31 23:40 08:20 WBC RBC Hgb Hct MCV MCH MCHC RDW Plt Count Lymph % (Auto) [place] % (Auto) Lymph # [place] # Baso # Seg Neutrophils % Seg Neuts % (Manual) Lymphocytes % (Manual) Monocytes % (Manual) Eosinophils % (Manual) Basophils % (Manual) Nucleated RBC % Seg Neutrophils # Seg Neutrophils # Man Lymphocytes # (Manual) Monocytes # (Manual) Eosinophils # (Manual) PT INR Fibrinogen dRVVT Confirm Interp Factor V Activity POC ABG pH POC ABG pCO2 POC ABG pO2 ABG pO2 ABG HCO3 ABG Base Excess ABG Hemoglobin Oxyhemoglobin Sodium Potassium Chloride Carbon Dioxide BUN Creatinine Glucose POC Glucose 120 H 133 H Lactic Acid 4.10 H* Calcium Phosphorus Magnesium Direct Bilirubin AST ALT Alkaline Phosphatase Lactate Dehydrogenase Troponin T C-Reactive Protein Total Protein Albumin Prealbumin Triglycerides Cholesterol LDL Cholesterol Direct HDL Cholesterol Urine pH Urine WBC (Auto) Urine Creatinine Urine Total Protein Fluid Total Protein Vancomycin Trough Rheumatoid Factor Complement C4 Miscellaneous Test Crossmatch 09/27/16 09/27/16 09/27/16 11:23 15:00 18:15 WBC RBC Hgb Hct MCV MCH MCHC RDW Plt Count Lymph % (Auto) [place] % (Auto) Lymph # [place] # Baso # Seg Neutrophils % Seg Neuts % (Manual) Lymphocytes % (Manual) Monocytes % (Manual) Eosinophils % (Manual) Basophils % (Manual) Nucleated RBC % Seg Neutrophils # Seg Neutrophils # Man Lymphocytes # (Manual) Monocytes # (Manual) Eosinophils # (Manual) PT INR Fibrinogen dRVVT Confirm Interp Factor V Activity POC ABG pH 7.459 H POC ABG pCO2 27.1 L POC ABG pO2 140 H ABG pO2 ABG HCO3 ABG Base Excess ABG Hemoglobin Oxyhemoglobin Sodium Potassium Chloride Carbon Dioxide BUN Creatinine Glucose POC Glucose 114 H 127 H Lactic Acid Calcium Phosphorus Magnesium Direct Bilirubin AST ALT Alkaline Phosphatase Lactate Dehydrogenase Troponin T C-Reactive Protein Total Protein Albumin Prealbumin Triglycerides Cholesterol LDL Cholesterol Direct HDL Cholesterol Urine pH Urine WBC (Auto) Urine Creatinine Urine Total Protein Fluid Total Protein Vancomycin Trough Rheumatoid Factor Complement C4 Miscellaneous Test Crossmatch 09/27/16 09/27/16 09/28/16 Unknown Unknown 03:45 WBC RBC 2.49 L Hgb 6.8 L Hct 20.7 L MCV MCH 27 L MCHC RDW 22.1 H Plt Count Lymph % (Auto) [place] % (Auto) Lymph # [place] # Baso # Seg Neutrophils % Seg Neuts % (Manual) 32.0 L Lymphocytes % (Manual) 12.0 L Monocytes % (Manual) 11.0 H Eosinophils % (Manual) 10.0 H Basophils % (Manual) Nucleated RBC % Seg Neutrophils # Seg Neutrophils # Man Lymphocytes # (Manual) 1.0 L Monocytes # (Manual) 0.9 H Eosinophils # (Manual) 0.8 H PT INR Fibrinogen dRVVT Confirm Interp Factor V Activity POC ABG pH POC ABG pCO2 POC ABG pO2 ABG pO2 ABG HCO3 ABG Base Excess ABG Hemoglobin Oxyhemoglobin Sodium 135 L 135 L Potassium 3.5 L Chloride 93.6 L 94.4 L Carbon Dioxide 17 L 21 L BUN 45 H 28 H Creatinine 3.3 H 2.5 H Glucose 106 H POC Glucose Lactic Acid Calcium 7.3 L 7.1 L Phosphorus Magnesium Direct Bilirubin AST ALT Alkaline Phosphatase Lactate Dehydrogenase Troponin T C-Reactive Protein Total Protein Albumin Prealbumin Triglycerides Cholesterol LDL Cholesterol Direct HDL Cholesterol Urine pH Urine WBC (Auto) Urine Creatinine Urine Total Protein Fluid Total Protein Vancomycin Trough Rheumatoid Factor Complement C4 Miscellaneous Test Crossmatch 09/28/16 09/28/16 09/28/16 03:45 07:25 11:58 WBC 13.3 H RBC 3.01 L Hgb 8.4 L Hct 25.0 L MCV MCH MCHC RDW 20.5 H Plt Count 128 L Lymph % (Auto) [place] % (Auto) Lymph # [place] # Baso # Seg Neutrophils % Seg Neuts % (Manual) Lymphocytes % (Manual) 7.0 L Monocytes % (Manual) Eosinophils % (Manual) 6.0 H Basophils % (Manual) Nucleated RBC % Seg Neutrophils # Seg Neutrophils # Man Lymphocytes # (Manual) 0.9 L Monocytes # (Manual) Eosinophils # (Manual) 0.8 H PT INR Fibrinogen dRVVT Confirm Interp Factor V Activity POC ABG pH POC ABG pCO2 POC ABG pO2 ABG pO2 ABG HCO3 ABG Base Excess ABG Hemoglobin Oxyhemoglobin Sodium Potassium Chloride Carbon Dioxide BUN Creatinine Glucose POC Glucose 121 H Lactic Acid 4.50 H* Calcium Phosphorus Magnesium Direct Bilirubin AST ALT Alkaline Phosphatase Lactate Dehydrogenase Troponin T C-Reactive Protein Total Protein Albumin Prealbumin Triglycerides Cholesterol LDL Cholesterol Direct HDL Cholesterol Urine pH Urine WBC (Auto) Urine Creatinine Urine Total Protein Fluid Total Protein Vancomycin Trough Rheumatoid Factor Complement C4 Miscellaneous Test Crossmatch 09/29/16 09/29/16 09/29/16 06:45 06:45 06:45 WBC 14.9 H RBC 2.74 L Hgb 7.6 L Hct 23.2 L MCV MCH MCHC RDW 20.5 H Plt Count 81 L Lymph % (Auto) [place] % (Auto) Lymph # [place] # Baso # Seg Neutrophils % Seg Neuts % (Manual) 81.0 H Lymphocytes % (Manual) 4.0 L Monocytes % (Manual) Eosinophils % (Manual) Basophils % (Manual) Nucleated RBC % Seg Neutrophils # Seg Neutrophils # Man 12.1 H Lymphocytes # (Manual) 0.6 L Monocytes # (Manual) Eosinophils # (Manual) PT INR Fibrinogen dRVVT Confirm Interp Factor V Activity POC ABG pH POC ABG pCO2 POC ABG pO2 ABG pO2 ABG HCO3 ABG Base Excess ABG Hemoglobin Oxyhemoglobin Sodium 133 L Potassium 3.4 L Chloride 92.5 L Carbon Dioxide 21 L BUN 33 H Creatinine 3.0 H Glucose POC Glucose Lactic Acid Calcium 6.6 L Phosphorus Magnesium 1.40 L Direct Bilirubin 0.9 H AST ALT Alkaline Phosphatase Lactate Dehydrogenase Troponin T C-Reactive Protein Total Protein 4.3 L Albumin 1.3 L Prealbumin Triglycerides Cholesterol LDL Cholesterol Direct HDL Cholesterol Urine pH Urine WBC (Auto) Urine Creatinine Urine Total Protein Fluid Total Protein Vancomycin Trough Rheumatoid Factor Complement C4 Miscellaneous Test Crossmatch 09/29/16 09/29/16 09/30/16 17:52 20:12 00:07 WBC RBC Hgb Hct MCV MCH MCHC RDW Plt Count Lymph % (Auto) [place] % (Auto) Lymph # [place] # Baso # Seg Neutrophils % Seg Neuts % (Manual) Lymphocytes % (Manual) Monocytes % (Manual) Eosinophils % (Manual) Basophils % (Manual) Nucleated RBC % Seg Neutrophils # Seg Neutrophils # Man Lymphocytes # (Manual) Monocytes # (Manual) Eosinophils # (Manual) PT INR Fibrinogen dRVVT Confirm Interp Factor V Activity POC ABG pH POC ABG pCO2 POC ABG pO2 ABG pO2 ABG HCO3 ABG Base Excess ABG Hemoglobin Oxyhemoglobin Sodium Potassium Chloride Carbon Dioxide BUN Creatinine Glucose POC Glucose 50 L 51 L Lactic Acid Calcium Phosphorus Magnesium Direct Bilirubin AST ALT Alkaline Phosphatase Lactate Dehydrogenase Troponin T 0.204 H* C-Reactive Protein Total Protein Albumin Prealbumin Triglycerides Cholesterol 31 L LDL Cholesterol Direct 4 L HDL Cholesterol 3 L Urine pH Urine WBC (Auto) Urine Creatinine Urine Total Protein Fluid Total Protein Vancomycin Trough Rheumatoid Factor Complement C4 Miscellaneous Test Crossmatch 09/30/16 09/30/16 09/30/16 01:30 05:15 06:10 WBC RBC Hgb Hct MCV MCH MCHC RDW Plt Count Lymph % (Auto) [place] % (Auto) Lymph # [place] # Baso # Seg Neutrophils % Seg Neuts % (Manual) Lymphocytes % (Manual) Monocytes % (Manual) Eosinophils % (Manual) Basophils % (Manual) Nucleated RBC % Seg Neutrophils # Seg Neutrophils # Man Lymphocytes # (Manual) Monocytes # (Manual) Eosinophils # (Manual) PT INR Fibrinogen dRVVT Confirm Interp Factor V Activity POC ABG pH POC ABG pCO2 POC ABG pO2 ABG pO2 ABG HCO3 ABG Base Excess ABG Hemoglobin Oxyhemoglobin Sodium 133 L Potassium 3.2 L Chloride 93.2 L Carbon Dioxide 19 L BUN 36 H Creatinine 3.2 H Glucose 104 H POC Glucose 167 H 146 H Lactic Acid Calcium 6.4 L Phosphorus Magnesium 1.60 L Direct Bilirubin AST ALT Alkaline Phosphatase Lactate Dehydrogenase Troponin T C-Reactive Protein Total Protein Albumin Prealbumin Triglycerides Cholesterol LDL Cholesterol Direct HDL Cholesterol Urine pH Urine WBC (Auto) Urine Creatinine Urine Total Protein Fluid Total Protein Vancomycin Trough Rheumatoid Factor Complement C4 Miscellaneous Test Crossmatch 09/30/16 09/30/16 09/30/16 11:26 13:39 18:38 WBC RBC Hgb Hct MCV MCH MCHC RDW Plt Count Lymph % (Auto) [place] % (Auto) Lymph # [place] # Baso # Seg Neutrophils % Seg Neuts % (Manual) Lymphocytes % (Manual) Monocytes % (Manual) Eosinophils % (Manual) Basophils % (Manual) Nucleated RBC % Seg Neutrophils # Seg Neutrophils # Man Lymphocytes # (Manual) Monocytes # (Manual) Eosinophils # (Manual) PT INR Fibrinogen dRVVT Confirm Interp Factor V Activity POC ABG pH 7.479 H POC ABG pCO2 29.8 L POC ABG pO2 117 H ABG pO2 ABG HCO3 ABG Base Excess ABG Hemoglobin Oxyhemoglobin Sodium Potassium Chloride Carbon Dioxide BUN Creatinine Glucose POC Glucose 140 H 122 H Lactic Acid Calcium Phosphorus Magnesium Direct Bilirubin AST ALT Alkaline Phosphatase Lactate Dehydrogenase Troponin T C-Reactive Protein Total Protein Albumin Prealbumin Triglycerides Cholesterol LDL Cholesterol Direct HDL Cholesterol Urine pH Urine WBC (Auto) Urine Creatinine Urine Total Protein Fluid Total Protein Vancomycin Trough Rheumatoid Factor Complement C4 Miscellaneous Test Crossmatch 10/01/16 10/01/16 10/01/16 06:00 06:00 12:37 WBC 12.6 H RBC 2.75 L Hgb 7.3 L Hct 23.3 L MCV MCH 27 L MCHC RDW 20.6 H Plt Count 72 L Lymph % (Auto) [place] % (Auto) Lymph # [place] # Baso # Seg Neutrophils % Seg Neuts % (Manual) 31.0 L Lymphocytes % (Manual) 8.0 L Monocytes % (Manual) Eosinophils % (Manual) Basophils % (Manual) Nucleated RBC % 3.0 H Seg Neutrophils # Seg Neutrophils # Man Lymphocytes # (Manual) 1.0 L Monocytes # (Manual) Eosinophils # (Manual) PT INR Fibrinogen dRVVT Confirm Interp Factor V Activity POC ABG pH POC ABG pCO2 POC ABG pO2 ABG pO2 ABG HCO3 ABG Base Excess ABG Hemoglobin Oxyhemoglobin Sodium 127 L Potassium Chloride 86.8 L Carbon Dioxide 20 L BUN 42 H Creatinine 3.5 H Glucose POC Glucose 65 L Lactic Acid Calcium 7.0 L Phosphorus Magnesium Direct Bilirubin AST ALT Alkaline Phosphatase Lactate Dehydrogenase Troponin T C-Reactive Protein Total Protein Albumin Prealbumin Triglycerides Cholesterol LDL Cholesterol Direct HDL Cholesterol Urine pH Urine WBC (Auto) Urine Creatinine Urine Total Protein Fluid Total Protein Vancomycin Trough Rheumatoid Factor Complement C4 Miscellaneous Test Crossmatch 10/01/16 10/01/16 10/02/16 17:39 23:32 00:59 WBC RBC Hgb Hct MCV MCH MCHC RDW Plt Count Lymph % (Auto) [place] % (Auto) Lymph # [place] # Baso # Seg Neutrophils % Seg Neuts % (Manual) Lymphocytes % (Manual) Monocytes % (Manual) Eosinophils % (Manual) Basophils % (Manual) Nucleated RBC % Seg Neutrophils # Seg Neutrophils # Man Lymphocytes # (Manual) Monocytes # (Manual) Eosinophils # (Manual) PT INR Fibrinogen dRVVT Confirm Interp Factor V Activity POC ABG pH POC ABG pCO2 POC ABG pO2 ABG pO2 ABG HCO3 ABG Base Excess ABG Hemoglobin Oxyhemoglobin Sodium Potassium Chloride Carbon Dioxide BUN Creatinine Glucose POC Glucose 107 H 52 L 145 H Lactic Acid Calcium Phosphorus Magnesium Direct Bilirubin AST ALT Alkaline Phosphatase Lactate Dehydrogenase Troponin T C-Reactive Protein Total Protein Albumin Prealbumin Triglycerides Cholesterol LDL Cholesterol Direct HDL Cholesterol Urine pH Urine WBC (Auto) Urine Creatinine Urine Total Protein Fluid Total Protein Vancomycin Trough Rheumatoid Factor Complement C4 Miscellaneous Test Crossmatch 10/02/16 10/02/16 10/02/16 10:30 10:50 10:50 WBC 14.7 H RBC 2.76 L Hgb 7.4 L Hct 23.6 L MCV MCH 27 L MCHC RDW 20.2 H Plt Count 79 L Lymph % (Auto) [place] % (Auto) Lymph # [place] # Baso # Seg Neutrophils % Seg Neuts % (Manual) 86.0 H Lymphocytes % (Manual) 6.0 L Monocytes % (Manual) Eosinophils % (Manual) Basophils % (Manual) Nucleated RBC % Seg Neutrophils # Seg Neutrophils # Man 12.6 H Lymphocytes # (Manual) 0.9 L Monocytes # (Manual) Eosinophils # (Manual) PT INR Fibrinogen dRVVT Confirm Interp Factor V Activity POC ABG pH 7.486 H POC ABG pCO2 30.1 L POC ABG pO2 108 H ABG pO2 ABG HCO3 ABG Base Excess ABG Hemoglobin Oxyhemoglobin Sodium 131 L Potassium 3.4 L Chloride 89.9 L Carbon Dioxide BUN 26 H Creatinine 2.6 H Glucose POC Glucose Lactic Acid Calcium 7.0 L Phosphorus Magnesium Direct Bilirubin AST ALT Alkaline Phosphatase Lactate Dehydrogenase Troponin T C-Reactive Protein Total Protein Albumin Prealbumin Triglycerides Cholesterol LDL Cholesterol Direct HDL Cholesterol Urine pH Urine WBC (Auto) Urine Creatinine Urine Total Protein Fluid Total Protein Vancomycin Trough Rheumatoid Factor Complement C4 Miscellaneous Test Crossmatch 10/02/16 10/03/16 10/03/16 23:45 00:45 05:10 WBC 12.9 H RBC 2.77 L Hgb 7.6 L Hct 23.7 L MCV MCH 27 L MCHC RDW 19.7 H Plt Count 89 L Lymph % (Auto) [place] % (Auto) Lymph # [place] # Baso # Seg Neutrophils % Seg Neuts % (Manual) Lymphocytes % (Manual) 8.0 L Monocytes % (Manual) Eosinophils % (Manual) Basophils % (Manual) Nucleated RBC % Seg Neutrophils # 11.9 H Seg Neutrophils # Man Lymphocytes # (Manual) 1.0 L Monocytes # (Manual) Eosinophils # (Manual) PT INR Fibrinogen dRVVT Confirm Interp Factor V Activity POC ABG pH POC ABG pCO2 POC ABG pO2 ABG pO2 ABG HCO3 ABG Base Excess ABG Hemoglobin Oxyhemoglobin Sodium Potassium Chloride Carbon Dioxide BUN Creatinine Glucose POC Glucose 55 L 199 H Lactic Acid Calcium Phosphorus Magnesium Direct Bilirubin AST ALT Alkaline Phosphatase Lactate Dehydrogenase Troponin T C-Reactive Protein Total Protein Albumin Prealbumin Triglycerides Cholesterol LDL Cholesterol Direct HDL Cholesterol Urine pH Urine WBC (Auto) Urine Creatinine Urine Total Protein Fluid Total Protein Vancomycin Trough Rheumatoid Factor Complement C4 Miscellaneous Test Crossmatch 10/03/16 10/03/16 10/03/16 05:10 12:14 13:18 WBC RBC Hgb Hct MCV MCH MCHC RDW Plt Count Lymph % (Auto) [place] % (Auto) Lymph # [place] # Baso # Seg Neutrophils % Seg Neuts % (Manual) Lymphocytes % (Manual) Monocytes % (Manual) Eosinophils % (Manual) Basophils % (Manual) Nucleated RBC % Seg Neutrophils # Seg Neutrophils # Man Lymphocytes # (Manual) Monocytes # (Manual) Eosinophils # (Manual) PT INR Fibrinogen dRVVT Confirm Interp Factor V Activity POC ABG pH POC ABG pCO2 POC ABG pO2 ABG pO2 ABG HCO3 ABG Base Excess ABG Hemoglobin Oxyhemoglobin Sodium 129 L Potassium 3.3 L Chloride 88.8 L Carbon Dioxide 20 L BUN 29 H Creatinine 2.8 H Glucose POC Glucose 68 L 127 H Lactic Acid Calcium 7.2 L Phosphorus Magnesium Direct Bilirubin AST ALT Alkaline Phosphatase Lactate Dehydrogenase Troponin T C-Reactive Protein Total Protein Albumin Prealbumin Triglycerides Cholesterol LDL Cholesterol Direct HDL Cholesterol Urine pH Urine WBC (Auto) Urine Creatinine Urine Total Protein Fluid Total Protein Vancomycin Trough Rheumatoid Factor Complement C4 Miscellaneous Test Crossmatch 10/03/16 10/03/16 10/03/16 14:42 18:21 19:09 WBC RBC Hgb Hct MCV MCH MCHC RDW Plt Count Lymph % (Auto) [place] % (Auto) Lymph # [place] # Baso # Seg Neutrophils % Seg Neuts % (Manual) Lymphocytes % (Manual) Monocytes % (Manual) Eosinophils % (Manual) Basophils % (Manual) Nucleated RBC % Seg Neutrophils # Seg Neutrophils # Man Lymphocytes # (Manual) Monocytes # (Manual) Eosinophils # (Manual) PT INR Fibrinogen dRVVT Confirm Interp Factor V Activity POC ABG pH 7.499 H POC ABG pCO2 28.4 L POC ABG pO2 44 L ABG pO2 ABG HCO3 ABG Base Excess ABG Hemoglobin Oxyhemoglobin Sodium Potassium Chloride Carbon Dioxide BUN Creatinine Glucose POC Glucose 64 L 205 H Lactic Acid Calcium Phosphorus Magnesium Direct Bilirubin AST ALT Alkaline Phosphatase Lactate Dehydrogenase Troponin T C-Reactive Protein Total Protein Albumin Prealbumin Triglycerides Cholesterol LDL Cholesterol Direct HDL Cholesterol Urine pH Urine WBC (Auto) Urine Creatinine Urine Total Protein Fluid Total Protein Vancomycin Trough Rheumatoid Factor Complement C4 Miscellaneous Test Crossmatch 10/03/16 10/04/16 10/04/16 23:33 04:18 06:30 WBC RBC 2.54 L Hgb 7.1 L Hct 21.7 L MCV MCH MCHC RDW 19.5 H Plt Count 76 L Lymph % (Auto) [place] % (Auto) Lymph # [place] # Baso # Seg Neutrophils % Seg Neuts % (Manual) 88.0 H Lymphocytes % (Manual) 6.0 L Monocytes % (Manual) Eosinophils % (Manual) Basophils % (Manual) Nucleated RBC % Seg Neutrophils # Seg Neutrophils # Man 8.8 H Lymphocytes # (Manual) 0.6 L Monocytes # (Manual) Eosinophils # (Manual) PT INR Fibrinogen dRVVT Confirm Interp Factor V Activity POC ABG pH 7.461 H POC ABG pCO2 33.6 L POC ABG pO2 211 H ABG pO2 ABG HCO3 ABG Base Excess ABG Hemoglobin Oxyhemoglobin Sodium Potassium Chloride Carbon Dioxide BUN Creatinine Glucose POC Glucose 136 H Lactic Acid Calcium Phosphorus Magnesium Direct Bilirubin AST ALT Alkaline Phosphatase Lactate Dehydrogenase Troponin T C-Reactive Protein Total Protein Albumin Prealbumin Triglycerides Cholesterol LDL Cholesterol Direct HDL Cholesterol Urine pH Urine WBC (Auto) Urine Creatinine Urine Total Protein Fluid Total Protein Vancomycin Trough Rheumatoid Factor Complement C4 Miscellaneous Test Crossmatch 10/04/16 10/04/16 10/04/16 06:30 11:45 17:54 WBC RBC Hgb Hct MCV MCH MCHC RDW Plt Count Lymph % (Auto) [place] % (Auto) Lymph # [place] # Baso # Seg Neutrophils % Seg Neuts % (Manual) Lymphocytes % (Manual) Monocytes % (Manual) Eosinophils % (Manual) Basophils % (Manual) Nucleated RBC % Seg Neutrophils # Seg Neutrophils # Man Lymphocytes # (Manual) Monocytes # (Manual) Eosinophils # (Manual) PT INR Fibrinogen dRVVT Confirm Interp Factor V Activity POC ABG pH POC ABG pCO2 POC ABG pO2 ABG pO2 ABG HCO3 ABG Base Excess ABG Hemoglobin Oxyhemoglobin Sodium 128 L Potassium Chloride 87.4 L Carbon Dioxide 20 L BUN 34 H Creatinine 2.9 H Glucose 127 H POC Glucose 158 H 160 H Lactic Acid Calcium 7.4 L Phosphorus Magnesium Direct Bilirubin AST ALT Alkaline Phosphatase Lactate Dehydrogenase Troponin T C-Reactive Protein Total Protein Albumin Prealbumin Triglycerides Cholesterol LDL Cholesterol Direct HDL Cholesterol Urine pH Urine WBC (Auto) Urine Creatinine Urine Total Protein Fluid Total Protein Vancomycin Trough Rheumatoid Factor Complement C4 Miscellaneous Test Crossmatch 10/04/16 10/05/16 10/05/16 23:25 04:30 05:00 WBC RBC 2.64 L Hgb 7.5 L Hct 22.6 L MCV MCH MCHC RDW 19.3 H Plt Count 80 L Lymph % (Auto) [place] % (Auto) Lymph # [place] # Baso # Seg Neutrophils % Seg Neuts % (Manual) Lymphocytes % (Manual) 12.0 L Monocytes % (Manual) Eosinophils % (Manual) Basophils % (Manual) Nucleated RBC % Seg Neutrophils # Seg Neutrophils # Man Lymphocytes # (Manual) Monocytes # (Manual) Eosinophils # (Manual) PT INR Fibrinogen dRVVT Confirm Interp Factor V Activity POC ABG pH 7.475 H POC ABG pCO2 33.3 L POC ABG pO2 140 H ABG pO2 ABG HCO3 ABG Base Excess ABG Hemoglobin Oxyhemoglobin Sodium Potassium Chloride Carbon Dioxide BUN Creatinine Glucose POC Glucose 141 H Lactic Acid Calcium Phosphorus Magnesium Direct Bilirubin AST ALT Alkaline Phosphatase Lactate Dehydrogenase Troponin T C-Reactive Protein Total Protein Albumin Prealbumin Triglycerides Cholesterol LDL Cholesterol Direct HDL Cholesterol Urine pH Urine WBC (Auto) Urine Creatinine Urine Total Protein Fluid Total Protein Vancomycin Trough Rheumatoid Factor Complement C4 Miscellaneous Test Crossmatch 10/05/16 10/05/16 10/05/16 05:00 05:09 12:58 WBC RBC Hgb Hct MCV MCH MCHC RDW Plt Count Lymph % (Auto) [place] % (Auto) Lymph # [place] # Baso # Seg Neutrophils % Seg Neuts % (Manual) Lymphocytes % (Manual) Monocytes % (Manual) Eosinophils % (Manual) Basophils % (Manual) Nucleated RBC % Seg Neutrophils # Seg Neutrophils # Man Lymphocytes # (Manual) Monocytes # (Manual) Eosinophils # (Manual) PT INR Fibrinogen dRVVT Confirm Interp Factor V Activity POC ABG pH POC ABG pCO2 POC ABG pO2 ABG pO2 ABG HCO3 ABG Base Excess ABG Hemoglobin Oxyhemoglobin Sodium 131 L Potassium Chloride 94.0 L Carbon Dioxide 20 L BUN 22 H Creatinine 2.0 H Glucose 123 H POC Glucose 166 H 179 H Lactic Acid Calcium 7.7 L Phosphorus 2.20 L D Magnesium Direct Bilirubin AST ALT Alkaline Phosphatase Lactate Dehydrogenase Troponin T C-Reactive Protein Total Protein Albumin Prealbumin Triglycerides Cholesterol LDL Cholesterol Direct HDL Cholesterol Urine pH Urine WBC (Auto) Urine Creatinine Urine Total Protein Fluid Total Protein Vancomycin Trough Rheumatoid Factor Complement C4 Miscellaneous Test Crossmatch 10/05/16 10/05/16 10/05/16 15:50 18:53 23:12 WBC RBC Hgb Hct MCV MCH MCHC RDW Plt Count Lymph % (Auto) [place] % (Auto) Lymph # [place] # Baso # Seg Neutrophils % Seg Neuts % (Manual) Lymphocytes % (Manual) Monocytes % (Manual) Eosinophils % (Manual) Basophils % (Manual) Nucleated RBC % Seg Neutrophils # Seg Neutrophils # Man Lymphocytes # (Manual) Monocytes # (Manual) Eosinophils # (Manual) PT INR Fibrinogen dRVVT Confirm Interp Factor V Activity POC ABG pH POC ABG pCO2 POC ABG pO2 ABG pO2 ABG HCO3 ABG Base Excess ABG Hemoglobin Oxyhemoglobin Sodium Potassium Chloride Carbon Dioxide BUN Creatinine Glucose POC Glucose 150 H 164 H Lactic Acid Calcium Phosphorus Magnesium Direct Bilirubin AST ALT Alkaline Phosphatase Lactate Dehydrogenase Troponin T C-Reactive Protein Total Protein Albumin Prealbumin Triglycerides Cholesterol LDL Cholesterol Direct HDL Cholesterol Urine pH Urine WBC (Auto) Urine Creatinine Urine Total Protein Fluid Total Protein Vancomycin Trough Rheumatoid Factor Complement C4 Miscellaneous Test Crossmatch See Detail 10/06/16 10/06/16 10/06/16 03:50 03:50 04:53 WBC RBC 3.00 L Hgb 8.6 L Hct 25.8 L MCV MCH MCHC RDW 17.9 H Plt Count 65 L Lymph % (Auto) [place] % (Auto) Lymph # [place] # Baso # Seg Neutrophils % Seg Neuts % (Manual) 30.0 L Lymphocytes % (Manual) 5.0 L Monocytes % (Manual) Eosinophils % (Manual) Basophils % (Manual) Nucleated RBC % Seg Neutrophils # Seg Neutrophils # Man Lymphocytes # (Manual) 0.4 L Monocytes # (Manual) Eosinophils # (Manual) PT INR Fibrinogen dRVVT Confirm Interp Factor V Activity POC ABG pH 7.310 L POC ABG pCO2 49.0 H POC ABG pO2 ABG pO2 ABG HCO3 ABG Base Excess ABG Hemoglobin Oxyhemoglobin Sodium 133 L Potassium Chloride 95.9 L Carbon Dioxide BUN 26 H Creatinine 2.0 H Glucose 116 H POC Glucose Lactic Acid Calcium 7.8 L Phosphorus Magnesium Direct Bilirubin AST ALT Alkaline Phosphatase Lactate Dehydrogenase Troponin T C-Reactive Protein Total Protein Albumin Prealbumin Triglycerides Cholesterol LDL Cholesterol Direct HDL Cholesterol Urine pH Urine WBC (Auto) Urine Creatinine Urine Total Protein Fluid Total Protein Vancomycin Trough Rheumatoid Factor Complement C4 Miscellaneous Test Crossmatch 10/06/16 10/06/16 10/06/16 05:23 11:52 18:34 WBC RBC Hgb Hct MCV MCH MCHC RDW Plt Count Lymph % (Auto) [place] % (Auto) Lymph # [place] # Baso # Seg Neutrophils % Seg Neuts % (Manual) Lymphocytes % (Manual) Monocytes % (Manual) Eosinophils % (Manual) Basophils % (Manual) Nucleated RBC % Seg Neutrophils # Seg Neutrophils # Man Lymphocytes # (Manual) Monocytes # (Manual) Eosinophils # (Manual) PT INR Fibrinogen dRVVT Confirm Interp Factor V Activity POC ABG pH POC ABG pCO2 POC ABG pO2 ABG pO2 ABG HCO3 ABG Base Excess ABG Hemoglobin Oxyhemoglobin Sodium Potassium Chloride Carbon Dioxide BUN Creatinine Glucose POC Glucose 126 H 116 H 129 H Lactic Acid Calcium Phosphorus Magnesium Direct Bilirubin AST ALT Alkaline Phosphatase Lactate Dehydrogenase Troponin T C-Reactive Protein Total Protein Albumin Prealbumin Triglycerides Cholesterol LDL Cholesterol Direct HDL Cholesterol Urine pH Urine WBC (Auto) Urine Creatinine Urine Total Protein Fluid Total Protein Vancomycin Trough Rheumatoid Factor Complement C4 Miscellaneous Test Crossmatch 10/07/16 10/07/16 10/07/16 03:45 05:00 10:00 WBC 17.0 H RBC 2.68 L Hgb 7.3 L Hct 25.3 L MCV MCH 27 L MCHC 29 L RDW 19.6 H Plt Count 74 L Lymph % (Auto) [place] % (Auto) Lymph # [place] # Baso # Seg Neutrophils % Seg Neuts % (Manual) Lymphocytes % (Manual) 12.0 L Monocytes % (Manual) Eosinophils % (Manual) Basophils % (Manual) Nucleated RBC % 4.0 H Seg Neutrophils # Seg Neutrophils # Man 10.7 H Lymphocytes # (Manual) Monocytes # (Manual) Eosinophils # (Manual) PT INR Fibrinogen dRVVT Confirm Interp Factor V Activity POC ABG pH POC ABG pCO2 POC ABG pO2 ABG pO2 ABG HCO3 ABG Base Excess ABG Hemoglobin Oxyhemoglobin Sodium 130 L Potassium 3.2 L Chloride 93.9 L Carbon Dioxide 20 L BUN 44 H Creatinine 2.7 H Glucose 129 H POC Glucose Lactic Acid Calcium 7.4 L Phosphorus Magnesium Direct Bilirubin AST ALT 6 L Alkaline Phosphatase 195 H Lactate Dehydrogenase Troponin T C-Reactive Protein Total Protein 4.9 L Albumin 1.0 L Prealbumin Triglycerides Cholesterol LDL Cholesterol Direct HDL Cholesterol Urine pH Urine WBC (Auto) Urine Creatinine Urine Total Protein Fluid Total Protein Vancomycin Trough Rheumatoid Factor Complement C4 Miscellaneous Test Flexitest 1 H Crossmatch 10/07/16 10/07/16 10/07/16 10:00 11:24 18:10 WBC RBC Hgb Hct MCV MCH MCHC RDW Plt Count Lymph % (Auto) [place] % (Auto) Lymph # [place] # Baso # Seg Neutrophils % Seg Neuts % (Manual) Lymphocytes % (Manual) Monocytes % (Manual) Eosinophils % (Manual) Basophils % (Manual) Nucleated RBC % Seg Neutrophils # Seg Neutrophils # Man Lymphocytes # (Manual) Monocytes # (Manual) Eosinophils # (Manual) PT INR Fibrinogen dRVVT Confirm Interp Factor V Activity POC ABG pH POC ABG pCO2 POC ABG pO2 ABG pO2 ABG HCO3 ABG Base Excess ABG Hemoglobin Oxyhemoglobin Sodium Potassium Chloride Carbon Dioxide BUN Creatinine Glucose POC Glucose 116 H 130 H Lactic Acid Calcium Phosphorus Magnesium Direct Bilirubin AST ALT Alkaline Phosphatase Lactate Dehydrogenase Troponin T C-Reactive Protein 19.40 H Total Protein Albumin Prealbumin Triglycerides Cholesterol LDL Cholesterol Direct HDL Cholesterol Urine pH Urine WBC (Auto) Urine Creatinine Urine Total Protein Fluid Total Protein Vancomycin Trough Rheumatoid Factor Complement C4 Miscellaneous Test Crossmatch 10/07/16 10/08/16 10/08/16 18:30 00:00 04:00 WBC RBC Hgb Hct MCV MCH MCHC RDW Plt Count Lymph % (Auto) [place] % (Auto) Lymph # [place] # Baso # Seg Neutrophils % Seg Neuts % (Manual) Lymphocytes % (Manual) Monocytes % (Manual) Eosinophils % (Manual) Basophils % (Manual) Nucleated RBC % Seg Neutrophils # Seg Neutrophils # Man Lymphocytes # (Manual) Monocytes # (Manual) Eosinophils # (Manual) PT INR Fibrinogen dRVVT Confirm Interp Factor V Activity POC ABG pH POC ABG pCO2 POC ABG pO2 ABG pO2 ABG HCO3 ABG Base Excess ABG Hemoglobin Oxyhemoglobin Sodium 132 L Potassium 3.3 L Chloride 93.6 L Carbon Dioxide 17 L BUN 59 H Creatinine 2.7 H Glucose 121 H POC Glucose 122 H Lactic Acid Calcium 7.6 L Phosphorus Magnesium Direct Bilirubin AST ALT Alkaline Phosphatase Lactate Dehydrogenase Troponin T C-Reactive Protein Total Protein Albumin Prealbumin Triglycerides Cholesterol LDL Cholesterol Direct HDL Cholesterol Urine pH Urine WBC (Auto) > 182.0 H Urine Creatinine Urine Total Protein Fluid Total Protein Vancomycin Trough Rheumatoid Factor Complement C4 Miscellaneous Test Crossmatch 10/08/16 10/08/16 10/08/16 04:30 05:30 11:51 WBC RBC 5.15 H Hgb 14.4 H D Hct 44.5 H D MCV MCH MCHC RDW 19.5 H Plt Count 56 L Lymph % (Auto) [place] % (Auto) Lymph # [place] # Baso # Seg Neutrophils % Seg Neuts % (Manual) 24.0 L Lymphocytes % (Manual) 8.0 L Monocytes % (Manual) Eosinophils % (Manual) Basophils % (Manual) Nucleated RBC % 9.0 H Seg Neutrophils # Seg Neutrophils # Man Lymphocytes # (Manual) 0.7 L Monocytes # (Manual) Eosinophils # (Manual) PT INR Fibrinogen dRVVT Confirm Interp Factor V Activity POC ABG pH POC ABG pCO2 POC ABG pO2 ABG pO2 ABG HCO3 ABG Base Excess ABG Hemoglobin Oxyhemoglobin Sodium Potassium Chloride Carbon Dioxide BUN Creatinine Glucose POC Glucose 125 H 150 H Lactic Acid Calcium Phosphorus Magnesium Direct Bilirubin AST ALT Alkaline Phosphatase Lactate Dehydrogenase Troponin T C-Reactive Protein Total Protein Albumin Prealbumin Triglycerides Cholesterol LDL Cholesterol Direct HDL Cholesterol Urine pH Urine WBC (Auto) Urine Creatinine Urine Total Protein Fluid Total Protein Vancomycin Trough Rheumatoid Factor Complement C4 Miscellaneous Test Crossmatch 10/08/16 10/08/16 10/08/16 12:49 17:07 19:30 WBC RBC Hgb 7.1 L D Hct 22.4 L D MCV MCH MCHC RDW Plt Count Lymph % (Auto) [place] % (Auto) Lymph # [place] # Baso # Seg Neutrophils % Seg Neuts % (Manual) Lymphocytes % (Manual) Monocytes % (Manual) Eosinophils % (Manual) Basophils % (Manual) Nucleated RBC % Seg Neutrophils # Seg Neutrophils # Man Lymphocytes # (Manual) Monocytes # (Manual) Eosinophils # (Manual) PT INR Fibrinogen dRVVT Confirm Interp Factor V Activity POC ABG pH POC ABG pCO2 28.2 L POC ABG pO2 111 H ABG pO2 ABG HCO3 ABG Base Excess ABG Hemoglobin Oxyhemoglobin Sodium Potassium Chloride Carbon Dioxide BUN Creatinine Glucose POC Glucose 145 H Lactic Acid Calcium Phosphorus Magnesium Direct Bilirubin AST ALT Alkaline Phosphatase Lactate Dehydrogenase Troponin T C-Reactive Protein Total Protein Albumin Prealbumin Triglycerides Cholesterol LDL Cholesterol Direct HDL Cholesterol Urine pH Urine WBC (Auto) Urine Creatinine Urine Total Protein Fluid Total Protein Vancomycin Trough Rheumatoid Factor Complement C4 Miscellaneous Test Crossmatch 10/08/16 10/09/16 10/09/16 19:30 03:45 03:45 WBC 12.6 H RBC 2.36 L Hgb 6.7 L Hct 21.1 L MCV MCH MCHC RDW 19.5 H Plt Count 75 L Lymph % (Auto) [place] % (Auto) Lymph # [place] # Baso # Seg Neutrophils % Seg Neuts % (Manual) Lymphocytes % (Manual) Monocytes % (Manual) 10.0 H Eosinophils % (Manual) Basophils % (Manual) Nucleated RBC % 3.0 H Seg Neutrophils # Seg Neutrophils # Man Lymphocytes # (Manual) Monocytes # (Manual) 1.3 H Eosinophils # (Manual) PT 18.0 H INR 1.41 H Fibrinogen dRVVT Confirm Interp Factor V Activity POC ABG pH POC ABG pCO2 POC ABG pO2 ABG pO2 ABG HCO3 ABG Base Excess ABG Hemoglobin Oxyhemoglobin Sodium 135 L Potassium Chloride Carbon Dioxide 17 L BUN 81 H Creatinine 3.2 H Glucose 109 H POC Glucose Lactic Acid Calcium 7.4 L Phosphorus 4.60 H D Magnesium Direct Bilirubin AST ALT Alkaline Phosphatase Lactate Dehydrogenase Troponin T C-Reactive Protein Total Protein Albumin Prealbumin Triglycerides Cholesterol LDL Cholesterol Direct HDL Cholesterol Urine pH Urine WBC (Auto) Urine Creatinine Urine Total Protein Fluid Total Protein Vancomycin Trough Rheumatoid Factor Complement C4 Miscellaneous Test Crossmatch 10/09/16 10/09/16 10/09/16 03:45 05:14 07:20 WBC RBC Hgb Hct MCV MCH MCHC RDW Plt Count Lymph % (Auto) [place] % (Auto) Lymph # [place] # Baso # Seg Neutrophils % Seg Neuts % (Manual) Lymphocytes % (Manual) Monocytes % (Manual) Eosinophils % (Manual) Basophils % (Manual) Nucleated RBC % Seg Neutrophils # Seg Neutrophils # Man Lymphocytes # (Manual) Monocytes # (Manual) Eosinophils # (Manual) PT 19.0 H INR 1.51 H Fibrinogen dRVVT Confirm Interp Factor V Activity POC ABG pH POC ABG pCO2 POC ABG pO2 ABG pO2 ABG HCO3 ABG Base Excess ABG Hemoglobin Oxyhemoglobin Sodium Potassium Chloride Carbon Dioxide BUN Creatinine Glucose POC Glucose 151 H Lactic Acid Calcium Phosphorus Magnesium Direct Bilirubin AST ALT Alkaline Phosphatase Lactate Dehydrogenase Troponin T C-Reactive Protein Total Protein Albumin Prealbumin Triglycerides Cholesterol LDL Cholesterol Direct HDL Cholesterol Urine pH Urine WBC (Auto) Urine Creatinine Urine Total Protein Fluid Total Protein Vancomycin Trough Rheumatoid Factor Complement C4 Miscellaneous Test Crossmatch See Detail 10/09/16 10/09/16 10/09/16 11:46 16:20 16:43 WBC RBC Hgb 7.2 L Hct 22.2 L MCV MCH MCHC RDW Plt Count Lymph % (Auto) [place] % (Auto) Lymph # [place] # Baso # Seg Neutrophils % Seg Neuts % (Manual) Lymphocytes % (Manual) Monocytes % (Manual) Eosinophils % (Manual) Basophils % (Manual) Nucleated RBC % Seg Neutrophils # Seg Neutrophils # Man Lymphocytes # (Manual) Monocytes # (Manual) Eosinophils # (Manual) PT INR Fibrinogen dRVVT Confirm Interp Factor V Activity POC ABG pH POC ABG pCO2 POC ABG pO2 ABG pO2 ABG HCO3 ABG Base Excess ABG Hemoglobin Oxyhemoglobin Sodium Potassium Chloride Carbon Dioxide BUN Creatinine Glucose POC Glucose 133 H 141 H Lactic Acid Calcium Phosphorus Magnesium Direct Bilirubin AST ALT Alkaline Phosphatase Lactate Dehydrogenase Troponin T C-Reactive Protein Total Protein Albumin Prealbumin Triglycerides Cholesterol LDL Cholesterol Direct HDL Cholesterol Urine pH Urine WBC (Auto) Urine Creatinine Urine Total Protein Fluid Total Protein Vancomycin Trough Rheumatoid Factor Complement C4 Miscellaneous Test Crossmatch 10/10/16 10/10/16 10/10/16 05:00 05:00 11:19 WBC 18.5 H RBC 2.19 L Hgb 6.4 L Hct 19.6 L* MCV MCH MCHC RDW 19.3 H Plt Count 93 L Lymph % (Auto) [place] % (Auto) Lymph # [place] # Baso # Seg Neutrophils % Seg Neuts % (Manual) Lymphocytes % (Manual) 10.0 L Monocytes % (Manual) Eosinophils % (Manual) Basophils % (Manual) Nucleated RBC % 4.0 H Seg Neutrophils # Seg Neutrophils # Man 11.3 H Lymphocytes # (Manual) Monocytes # (Manual) Eosinophils # (Manual) PT INR Fibrinogen dRVVT Confirm Interp Factor V Activity POC ABG pH POC ABG pCO2 POC ABG pO2 ABG pO2 ABG HCO3 ABG Base Excess ABG Hemoglobin Oxyhemoglobin Sodium Potassium 5.7 H D Chloride Carbon Dioxide 16 L BUN 94 H Creatinine 3.1 H Glucose 131 H POC Glucose 153 H Lactic Acid Calcium 8.2 L Phosphorus 5.10 H Magnesium 2.40 H Direct Bilirubin 0.3 H AST ALT < 5 L Alkaline Phosphatase 319 H Lactate Dehydrogenase Troponin T C-Reactive Protein Total Protein 5.1 L Albumin 1.0 L Prealbumin Triglycerides Cholesterol LDL Cholesterol Direct HDL Cholesterol Urine pH Urine WBC (Auto) Urine Creatinine Urine Total Protein Fluid Total Protein Vancomycin Trough Rheumatoid Factor Complement C4 Miscellaneous Test Crossmatch 10/10/16 10/10/16 10/11/16 17:50 23:30 04:15 WBC RBC Hgb Hct MCV MCH MCHC RDW Plt Count Lymph % (Auto) [place] % (Auto) Lymph # [place] # Baso # Seg Neutrophils % Seg Neuts % (Manual) Lymphocytes % (Manual) Monocytes % (Manual) Eosinophils % (Manual) Basophils % (Manual) Nucleated RBC % Seg Neutrophils # Seg Neutrophils # Man Lymphocytes # (Manual) Monocytes # (Manual) Eosinophils # (Manual) PT INR Fibrinogen dRVVT Confirm Interp Factor V Activity POC ABG pH POC ABG pCO2 POC ABG pO2 ABG pO2 ABG HCO3 ABG Base Excess ABG Hemoglobin Oxyhemoglobin Sodium Potassium Chloride 96.4 L Carbon Dioxide 21 L BUN 57 H Creatinine 2.1 H Glucose 151 H POC Glucose 146 H 141 H Lactic Acid Calcium 8.3 L Phosphorus Magnesium Direct Bilirubin AST ALT Alkaline Phosphatase Lactate Dehydrogenase Troponin T C-Reactive Protein Total Protein Albumin Prealbumin Triglycerides Cholesterol LDL Cholesterol Direct HDL Cholesterol Urine pH Urine WBC (Auto) Urine Creatinine Urine Total Protein Fluid Total Protein Vancomycin Trough Rheumatoid Factor Complement C4 Miscellaneous Test Crossmatch 10/11/16 10/11/16 10/11/16 04:15 04:15 05:30 WBC 28.3 H RBC 3.12 L Hgb 9.3 L Hct 28.7 L D MCV MCH MCHC RDW 17.7 H Plt Count 128 L Lymph % (Auto) [place] % (Auto) Lymph # [place] # Baso # Seg Neutrophils % Seg Neuts % (Manual) Lymphocytes % (Manual) Monocytes % (Manual) Eosinophils % (Manual) Basophils % (Manual) Nucleated RBC % Seg Neutrophils # Seg Neutrophils # Man Lymphocytes # (Manual) Monocytes # (Manual) Eosinophils # (Manual) PT INR Fibrinogen dRVVT Confirm Interp Factor V Activity POC ABG pH POC ABG pCO2 POC ABG pO2 ABG pO2 ABG HCO3 ABG Base Excess ABG Hemoglobin Oxyhemoglobin Sodium Potassium Chloride Carbon Dioxide BUN Creatinine Glucose POC Glucose 167 H Lactic Acid Calcium Phosphorus Magnesium Direct Bilirubin AST ALT Alkaline Phosphatase Lactate Dehydrogenase Troponin T C-Reactive Protein 15.80 H Total Protein Albumin Prealbumin Triglycerides Cholesterol LDL Cholesterol Direct HDL Cholesterol Urine pH Urine WBC (Auto) Urine Creatinine Urine Total Protein Fluid Total Protein Vancomycin Trough Rheumatoid Factor Complement C4 Miscellaneous Test Crossmatch 10/11/16 10/11/16 10/11/16 11:40 15:49 23:57 WBC RBC Hgb Hct MCV MCH MCHC RDW Plt Count Lymph % (Auto) [place] % (Auto) Lymph # [place] # Baso # Seg Neutrophils % Seg Neuts % (Manual) Lymphocytes % (Manual) Monocytes % (Manual) Eosinophils % (Manual) Basophils % (Manual) Nucleated RBC % Seg Neutrophils # Seg Neutrophils # Man Lymphocytes # (Manual) Monocytes # (Manual) Eosinophils # (Manual) PT INR Fibrinogen dRVVT Confirm Interp Factor V Activity POC ABG pH POC ABG pCO2 POC ABG pO2 ABG pO2 ABG HCO3 ABG Base Excess ABG Hemoglobin Oxyhemoglobin Sodium Potassium Chloride Carbon Dioxide BUN Creatinine Glucose POC Glucose 139 H 168 H 161 H Lactic Acid Calcium Phosphorus Magnesium Direct Bilirubin AST ALT Alkaline Phosphatase Lactate Dehydrogenase Troponin T C-Reactive Protein Total Protein Albumin Prealbumin Triglycerides Cholesterol LDL Cholesterol Direct HDL Cholesterol Urine pH Urine WBC (Auto) Urine Creatinine Urine Total Protein Fluid Total Protein Vancomycin Trough Rheumatoid Factor Complement C4 Miscellaneous Test Crossmatch 10/12/16 10/12/16 10/12/16 04:40 04:40 05:44 WBC 22.5 H RBC 2.88 L Hgb 8.8 L Hct 26.8 L MCV MCH MCHC RDW 17.8 H Plt Count Lymph % (Auto) [place] % (Auto) Lymph # [place] # Baso # Seg Neutrophils % Seg Neuts % (Manual) Lymphocytes % (Manual) Monocytes % (Manual) Eosinophils % (Manual) Basophils % (Manual) Nucleated RBC % Seg Neutrophils # Seg Neutrophils # Man Lymphocytes # (Manual) Monocytes # (Manual) Eosinophils # (Manual) PT INR Fibrinogen dRVVT Confirm Interp Factor V Activity POC ABG pH POC ABG pCO2 POC ABG pO2 ABG pO2 ABG HCO3 ABG Base Excess ABG Hemoglobin Oxyhemoglobin Sodium 134 L Potassium Chloride 93.0 L Carbon Dioxide BUN 74 H Creatinine 2.5 H Glucose 137 H POC Glucose 158 H Lactic Acid Calcium 8.2 L Phosphorus Magnesium Direct Bilirubin AST ALT Alkaline Phosphatase Lactate Dehydrogenase Troponin T C-Reactive Protein Total Protein Albumin Prealbumin Triglycerides Cholesterol LDL Cholesterol Direct HDL Cholesterol Urine pH Urine WBC (Auto) Urine Creatinine Urine Total Protein Fluid Total Protein Vancomycin Trough Rheumatoid Factor Complement C4 Miscellaneous Test Crossmatch 10/12/16 10/12/16 10/12/16 12:27 18:18 23:46 WBC RBC Hgb Hct MCV MCH MCHC RDW Plt Count Lymph % (Auto) [place] % (Auto) Lymph # [place] # Baso # Seg Neutrophils % Seg Neuts % (Manual) Lymphocytes % (Manual) Monocytes % (Manual) Eosinophils % (Manual) Basophils % (Manual) Nucleated RBC % Seg Neutrophils # Seg Neutrophils # Man Lymphocytes # (Manual) Monocytes # (Manual) Eosinophils # (Manual) PT INR Fibrinogen dRVVT Confirm Interp Factor V Activity POC ABG pH POC ABG pCO2 POC ABG pO2 ABG pO2 ABG HCO3 ABG Base Excess ABG Hemoglobin Oxyhemoglobin Sodium Potassium Chloride Carbon Dioxide BUN Creatinine Glucose POC Glucose 153 H 140 H 150 H Lactic Acid Calcium Phosphorus Magnesium Direct Bilirubin AST ALT Alkaline Phosphatase Lactate Dehydrogenase Troponin T C-Reactive Protein Total Protein Albumin Prealbumin Triglycerides Cholesterol LDL Cholesterol Direct HDL Cholesterol Urine pH Urine WBC (Auto) Urine Creatinine Urine Total Protein Fluid Total Protein Vancomycin Trough Rheumatoid Factor Complement C4 Miscellaneous Test Crossmatch 10/13/16 10/13/16 10/13/16 06:22 09:20 12:29 WBC RBC Hgb Hct MCV MCH MCHC RDW Plt Count Lymph % (Auto) [place] % (Auto) Lymph # [place] # Baso # Seg Neutrophils % Seg Neuts % (Manual) Lymphocytes % (Manual) Monocytes % (Manual) Eosinophils % (Manual) Basophils % (Manual) Nucleated RBC % Seg Neutrophils # Seg Neutrophils # Man Lymphocytes # (Manual) Monocytes # (Manual) Eosinophils # (Manual) PT INR Fibrinogen dRVVT Confirm Interp Factor V Activity POC ABG pH POC ABG pCO2 POC ABG pO2 ABG pO2 ABG HCO3 ABG Base Excess ABG Hemoglobin Oxyhemoglobin Sodium Potassium Chloride Carbon Dioxide BUN Creatinine Glucose POC Glucose 165 H 193 H Lactic Acid Calcium Phosphorus Magnesium Direct Bilirubin AST ALT Alkaline Phosphatase Lactate Dehydrogenase Troponin T C-Reactive Protein Total Protein Albumin Prealbumin Triglycerides Cholesterol LDL Cholesterol Direct HDL Cholesterol Urine pH Urine WBC (Auto) Urine Creatinine Urine Total Protein Fluid Total Protein Vancomycin Trough Rheumatoid Factor Complement C4 Miscellaneous Test Flexitest 1 H Crossmatch 10/13/16 10/13/16 10/13/16 18:09 Unknown Unknown WBC 23.4 H RBC 2.83 L Hgb 8.7 L Hct 26.1 L MCV MCH MCHC RDW 18.1 H Plt Count Lymph % (Auto) [place] % (Auto) Lymph # [place] # Baso # Seg Neutrophils % Seg Neuts % (Manual) Lymphocytes % (Manual) Monocytes % (Manual) Eosinophils % (Manual) Basophils % (Manual) Nucleated RBC % Seg Neutrophils # Seg Neutrophils # Man Lymphocytes # (Manual) Monocytes # (Manual) Eosinophils # (Manual) PT INR Fibrinogen dRVVT Confirm Interp Factor V Activity POC ABG pH POC ABG pCO2 POC ABG pO2 ABG pO2 ABG HCO3 ABG Base Excess ABG Hemoglobin Oxyhemoglobin Sodium Potassium Chloride 95.8 L Carbon Dioxide BUN 82 H Creatinine 2.6 H Glucose 152 H POC Glucose 166 H Lactic Acid Calcium Phosphorus Magnesium Direct Bilirubin AST ALT Alkaline Phosphatase Lactate Dehydrogenase Troponin T C-Reactive Protein Total Protein Albumin Prealbumin Triglycerides Cholesterol LDL Cholesterol Direct HDL Cholesterol Urine pH Urine WBC (Auto) Urine Creatinine Urine Total Protein Fluid Total Protein Vancomycin Trough Rheumatoid Factor Complement C4 Miscellaneous Test Crossmatch 10/14/16 10/14/16 10/14/16 05:38 06:35 08:10 WBC 20.7 H RBC 2.81 L Hgb 8.4 L Hct 27.2 L MCV MCH MCHC RDW 19.4 H Plt Count Lymph % (Auto) [place] % (Auto) Lymph # [place] # Baso # Seg Neutrophils % Seg Neuts % (Manual) Lymphocytes % (Manual) Monocytes % (Manual) Eosinophils % (Manual) Basophils % (Manual) Nucleated RBC % Seg Neutrophils # Seg Neutrophils # Man Lymphocytes # (Manual) Monocytes # (Manual) Eosinophils # (Manual) PT INR Fibrinogen dRVVT Confirm Interp Factor V Activity POC ABG pH POC ABG pCO2 POC ABG pO2 ABG pO2 ABG HCO3 ABG Base Excess ABG Hemoglobin Oxyhemoglobin Sodium Potassium Chloride Carbon Dioxide BUN 58 H Creatinine 1.9 H Glucose 169 H POC Glucose 195 H Lactic Acid Calcium Phosphorus Magnesium Direct Bilirubin AST ALT Alkaline Phosphatase Lactate Dehydrogenase Troponin T C-Reactive Protein Total Protein Albumin Prealbumin Triglycerides Cholesterol LDL Cholesterol Direct HDL Cholesterol Urine pH Urine WBC (Auto) Urine Creatinine Urine Total Protein Fluid Total Protein Vancomycin Trough Rheumatoid Factor Complement C4 Miscellaneous Test Crossmatch 10/14/16 10/14/16 10/14/16 11:44 17:13 23:28 WBC RBC Hgb Hct MCV MCH MCHC RDW Plt Count Lymph % (Auto) [place] % (Auto) Lymph # [place] # Baso # Seg Neutrophils % Seg Neuts % (Manual) Lymphocytes % (Manual) Monocytes % (Manual) Eosinophils % (Manual) Basophils % (Manual) Nucleated RBC % Seg Neutrophils # Seg Neutrophils # Man Lymphocytes # (Manual) Monocytes # (Manual) Eosinophils # (Manual) PT INR Fibrinogen dRVVT Confirm Interp Factor V Activity POC ABG pH POC ABG pCO2 POC ABG pO2 ABG pO2 ABG HCO3 ABG Base Excess ABG Hemoglobin Oxyhemoglobin Sodium Potassium Chloride Carbon Dioxide BUN Creatinine Glucose POC Glucose 174 H 121 H 151 H Lactic Acid Calcium Phosphorus Magnesium Direct Bilirubin AST ALT Alkaline Phosphatase Lactate Dehydrogenase Troponin T C-Reactive Protein Total Protein Albumin Prealbumin Triglycerides Cholesterol LDL Cholesterol Direct HDL Cholesterol Urine pH Urine WBC (Auto) Urine Creatinine Urine Total Protein Fluid Total Protein Vancomycin Trough Rheumatoid Factor Complement C4 Miscellaneous Test Crossmatch 10/15/16 10/15/16 10/15/16 05:06 12:26 17:48 WBC RBC Hgb Hct MCV MCH MCHC RDW Plt Count Lymph % (Auto) [place] % (Auto) Lymph # [place] # Baso # Seg Neutrophils % Seg Neuts % (Manual) Lymphocytes % (Manual) Monocytes % (Manual) Eosinophils % (Manual) Basophils % (Manual) Nucleated RBC % Seg Neutrophils # Seg Neutrophils # Man Lymphocytes # (Manual) Monocytes # (Manual) Eosinophils # (Manual) PT INR Fibrinogen dRVVT Confirm Interp Factor V Activity POC ABG pH POC ABG pCO2 POC ABG pO2 ABG pO2 ABG HCO3 ABG Base Excess ABG Hemoglobin Oxyhemoglobin Sodium Potassium Chloride Carbon Dioxide BUN Creatinine Glucose POC Glucose 151 H 149 H 153 H Lactic Acid Calcium Phosphorus Magnesium Direct Bilirubin AST ALT Alkaline Phosphatase Lactate Dehydrogenase Troponin T C-Reactive Protein Total Protein Albumin Prealbumin Triglycerides Cholesterol LDL Cholesterol Direct HDL Cholesterol Urine pH Urine WBC (Auto) Urine Creatinine Urine Total Protein Fluid Total Protein Vancomycin Trough Rheumatoid Factor Complement C4 Miscellaneous Test Crossmatch 10/15/16 10/15/16 10/16/16 Unknown Unknown 00:02 WBC 23.4 H RBC 2.78 L Hgb 8.5 L Hct 25.7 L MCV MCH MCHC RDW 18.7 H Plt Count Lymph % (Auto) [place] % (Auto) Lymph # [place] # Baso # Seg Neutrophils % Seg Neuts % (Manual) Lymphocytes % (Manual) Monocytes % (Manual) Eosinophils % (Manual) Basophils % (Manual) Nucleated RBC % Seg Neutrophils # Seg Neutrophils # Man Lymphocytes # (Manual) Monocytes # (Manual) Eosinophils # (Manual) PT INR Fibrinogen dRVVT Confirm Interp Factor V Activity POC ABG pH POC ABG pCO2 POC ABG pO2 ABG pO2 ABG HCO3 ABG Base Excess ABG Hemoglobin Oxyhemoglobin Sodium Potassium Chloride Carbon Dioxide BUN 73 H Creatinine 2.3 H Glucose 120 H POC Glucose 137 H Lactic Acid Calcium Phosphorus Magnesium Direct Bilirubin AST ALT Alkaline Phosphatase Lactate Dehydrogenase Troponin T C-Reactive Protein Total Protein Albumin Prealbumin Triglycerides Cholesterol LDL Cholesterol Direct HDL Cholesterol Urine pH Urine WBC (Auto) Urine Creatinine Urine Total Protein Fluid Total Protein Vancomycin Trough Rheumatoid Factor Complement C4 Miscellaneous Test Crossmatch 10/16/16 10/16/16 10/16/16 05:44 06:25 06:25 WBC 22.5 H RBC 2.76 L Hgb 8.3 L Hct 25.2 L MCV MCH MCHC RDW 18.3 H Plt Count Lymph % (Auto) [place] % (Auto) Lymph # [place] # Baso # Seg Neutrophils % Seg Neuts % (Manual) Lymphocytes % (Manual) Monocytes % (Manual) Eosinophils % (Manual) Basophils % (Manual) Nucleated RBC % Seg Neutrophils # Seg Neutrophils # Man Lymphocytes # (Manual) Monocytes # (Manual) Eosinophils # (Manual) PT INR Fibrinogen dRVVT Confirm Interp Factor V Activity POC ABG pH POC ABG pCO2 POC ABG pO2 ABG pO2 ABG HCO3 ABG Base Excess ABG Hemoglobin Oxyhemoglobin Sodium Potassium Chloride Carbon Dioxide BUN 92 H Creatinine 3.0 H Glucose 138 H POC Glucose 110 H Lactic Acid Calcium Phosphorus Magnesium Direct Bilirubin AST ALT Alkaline Phosphatase Lactate Dehydrogenase Troponin T C-Reactive Protein Total Protein Albumin Prealbumin Triglycerides Cholesterol LDL Cholesterol Direct HDL Cholesterol Urine pH Urine WBC (Auto) Urine Creatinine Urine Total Protein Fluid Total Protein Vancomycin Trough Rheumatoid Factor Complement C4 Miscellaneous Test Crossmatch 10/16/16 10/16/16 10/16/16 11:27 11:48 17:36 WBC RBC Hgb Hct MCV MCH MCHC RDW Plt Count Lymph % (Auto) [place] % (Auto) Lymph # [place] # Baso # Seg Neutrophils % Seg Neuts % (Manual) Lymphocytes % (Manual) Monocytes % (Manual) Eosinophils % (Manual) Basophils % (Manual) Nucleated RBC % Seg Neutrophils # Seg Neutrophils # Man Lymphocytes # (Manual) Monocytes # (Manual) Eosinophils # (Manual) PT INR Fibrinogen dRVVT Confirm Interp Factor V Activity POC ABG pH 7.582 H POC ABG pCO2 27.4 L POC ABG pO2 110 H ABG pO2 ABG HCO3 ABG Base Excess ABG Hemoglobin Oxyhemoglobin Sodium Potassium Chloride Carbon Dioxide BUN Creatinine Glucose POC Glucose 121 H 133 H Lactic Acid Calcium Phosphorus Magnesium Direct Bilirubin AST ALT Alkaline Phosphatase Lactate Dehydrogenase Troponin T C-Reactive Protein Total Protein Albumin Prealbumin Triglycerides Cholesterol LDL Cholesterol Direct HDL Cholesterol Urine pH Urine WBC (Auto) Urine Creatinine Urine Total Protein Fluid Total Protein Vancomycin Trough Rheumatoid Factor Complement C4 Miscellaneous Test Crossmatch 10/16/16 10/17/16 10/17/16 20:48 04:24 04:24 WBC 21.4 H RBC 2.72 L Hgb 8.0 L Hct 25.2 L MCV MCH MCHC RDW 18.0 H Plt Count Lymph % (Auto) [place] % (Auto) Lymph # [place] # Baso # Seg Neutrophils % Seg Neuts % (Manual) Lymphocytes % (Manual) Monocytes % (Manual) Eosinophils % (Manual) Basophils % (Manual) Nucleated RBC % Seg Neutrophils # Seg Neutrophils # Man Lymphocytes # (Manual) Monocytes # (Manual) Eosinophils # (Manual) PT INR Fibrinogen dRVVT Confirm Interp Factor V Activity POC ABG pH 7.561 H POC ABG pCO2 24.4 L POC ABG pO2 77 L ABG pO2 ABG HCO3 ABG Base Excess ABG Hemoglobin Oxyhemoglobin Sodium 148 H Potassium Chloride Carbon Dioxide BUN 104 H Creatinine 3.0 H Glucose 149 H POC Glucose Lactic Acid Calcium Phosphorus Magnesium Direct Bilirubin AST ALT Alkaline Phosphatase 138 H Lactate Dehydrogenase Troponin T C-Reactive Protein Total Protein 6.2 L Albumin 1.5 L Prealbumin Triglycerides Cholesterol LDL Cholesterol Direct HDL Cholesterol Urine pH Urine WBC (Auto) Urine Creatinine Urine Total Protein Fluid Total Protein Vancomycin Trough Rheumatoid Factor Complement C4 Miscellaneous Test Crossmatch 10/17/16 10/17/16 10/17/16 06:02 12:17 17:14 WBC RBC Hgb Hct MCV MCH MCHC RDW Plt Count Lymph % (Auto) [place] % (Auto) Lymph # [place] # Baso # Seg Neutrophils % Seg Neuts % (Manual) Lymphocytes % (Manual) Monocytes % (Manual) Eosinophils % (Manual) Basophils % (Manual) Nucleated RBC % Seg Neutrophils # Seg Neutrophils # Man Lymphocytes # (Manual) Monocytes # (Manual) Eosinophils # (Manual) PT INR Fibrinogen dRVVT Confirm Interp Factor V Activity POC ABG pH POC ABG pCO2 POC ABG pO2 ABG pO2 ABG HCO3 ABG Base Excess ABG Hemoglobin Oxyhemoglobin Sodium Potassium Chloride Carbon Dioxide BUN Creatinine Glucose POC Glucose 170 H 167 H 126 H Lactic Acid Calcium Phosphorus Magnesium Direct Bilirubin AST ALT Alkaline Phosphatase Lactate Dehydrogenase Troponin T C-Reactive Protein Total Protein Albumin Prealbumin Triglycerides Cholesterol LDL Cholesterol Direct HDL Cholesterol Urine pH Urine WBC (Auto) Urine Creatinine Urine Total Protein Fluid Total Protein Vancomycin Trough Rheumatoid Factor Complement C4 Miscellaneous Test Crossmatch 10/17/16 10/18/16 10/18/16 23:17 04:00 04:00 WBC 20.7 H RBC 2.47 L Hgb 7.4 L Hct 22.9 L MCV MCH MCHC RDW 17.5 H Plt Count Lymph % (Auto) [place] % (Auto) Lymph # [place] # Baso # Seg Neutrophils % Seg Neuts % (Manual) Lymphocytes % (Manual) Monocytes % (Manual) Eosinophils % (Manual) Basophils % (Manual) Nucleated RBC % Seg Neutrophils # Seg Neutrophils # Man Lymphocytes # (Manual) Monocytes # (Manual) Eosinophils # (Manual) PT INR Fibrinogen dRVVT Confirm Interp Factor V Activity POC ABG pH POC ABG pCO2 POC ABG pO2 ABG pO2 ABG HCO3 ABG Base Excess ABG Hemoglobin Oxyhemoglobin Sodium 149 H Potassium Chloride 107.9 H Carbon Dioxide 20 L BUN 117 H Creatinine 3.2 H Glucose 119 H POC Glucose 121 H Lactic Acid Calcium Phosphorus Magnesium Direct Bilirubin AST ALT Alkaline Phosphatase Lactate Dehydrogenase Troponin T C-Reactive Protein Total Protein Albumin Prealbumin Triglycerides Cholesterol LDL Cholesterol Direct HDL Cholesterol Urine pH Urine WBC (Auto) Urine Creatinine Urine Total Protein Fluid Total Protein Vancomycin Trough Rheumatoid Factor Complement C4 Miscellaneous Test Crossmatch 10/18/16 10/18/16 10/18/16 05:23 10:46 17:30 WBC RBC Hgb Hct MCV MCH MCHC RDW Plt Count Lymph % (Auto) [place] % (Auto) Lymph # [place] # Baso # Seg Neutrophils % Seg Neuts % (Manual) Lymphocytes % (Manual) Monocytes % (Manual) Eosinophils % (Manual) Basophils % (Manual) Nucleated RBC % Seg Neutrophils # Seg Neutrophils # Man Lymphocytes # (Manual) Monocytes # (Manual) Eosinophils # (Manual) PT INR Fibrinogen dRVVT Confirm Interp Factor V Activity POC ABG pH POC ABG pCO2 POC ABG pO2 ABG pO2 ABG HCO3 ABG Base Excess ABG Hemoglobin Oxyhemoglobin Sodium Potassium Chloride Carbon Dioxide BUN Creatinine Glucose POC Glucose 119 H 155 H 124 H Lactic Acid Calcium Phosphorus Magnesium Direct Bilirubin AST ALT Alkaline Phosphatase Lactate Dehydrogenase Troponin T C-Reactive Protein Total Protein Albumin Prealbumin Triglycerides Cholesterol LDL Cholesterol Direct HDL Cholesterol Urine pH Urine WBC (Auto) Urine Creatinine Urine Total Protein Fluid Total Protein Vancomycin Trough Rheumatoid Factor Complement C4 Miscellaneous Test Crossmatch 10/19/16 10/19/16 10/19/16 04:00 04:00 05:25 WBC 17.4 H RBC 2.54 L Hgb 7.7 L Hct 23.6 L MCV MCH MCHC RDW 17.3 H Plt Count Lymph % (Auto) [place] % (Auto) Lymph # [place] # Baso # Seg Neutrophils % Seg Neuts % (Manual) Lymphocytes % (Manual) Monocytes % (Manual) Eosinophils % (Manual) Basophils % (Manual) Nucleated RBC % Seg Neutrophils # Seg Neutrophils # Man Lymphocytes # (Manual) Monocytes # (Manual) Eosinophils # (Manual) PT INR Fibrinogen dRVVT Confirm Interp Factor V Activity POC ABG pH POC ABG pCO2 POC ABG pO2 ABG pO2 ABG HCO3 ABG Base Excess ABG Hemoglobin Oxyhemoglobin Sodium Potassium Chloride Carbon Dioxide BUN 72 H Creatinine 2.1 H Glucose 116 H POC Glucose 119 H Lactic Acid Calcium Phosphorus Magnesium Direct Bilirubin AST ALT Alkaline Phosphatase Lactate Dehydrogenase Troponin T C-Reactive Protein Total Protein Albumin Prealbumin Triglycerides Cholesterol LDL Cholesterol Direct HDL Cholesterol Urine pH Urine WBC (Auto) Urine Creatinine Urine Total Protein Fluid Total Protein Vancomycin Trough Rheumatoid Factor Complement C4 Miscellaneous Test Crossmatch 10/19/16 10/19/16 10/20/16 11:46 23:59 06:00 WBC RBC Hgb Hct MCV MCH MCHC RDW Plt Count Lymph % (Auto) [place] % (Auto) Lymph # [place] # Baso # Seg Neutrophils % Seg Neuts % (Manual) Lymphocytes % (Manual) Monocytes % (Manual) Eosinophils % (Manual) Basophils % (Manual) Nucleated RBC % Seg Neutrophils # Seg Neutrophils # Man Lymphocytes # (Manual) Monocytes # (Manual) Eosinophils # (Manual) PT INR Fibrinogen dRVVT Confirm Interp Factor V Activity POC ABG pH POC ABG pCO2 POC ABG pO2 ABG pO2 ABG HCO3 ABG Base Excess ABG Hemoglobin Oxyhemoglobin Sodium Potassium Chloride Carbon Dioxide 17 L BUN 94 H Creatinine 2.7 H Glucose POC Glucose 116 H 117 H Lactic Acid Calcium Phosphorus Magnesium Direct Bilirubin AST ALT Alkaline Phosphatase Lactate Dehydrogenase Troponin T C-Reactive Protein Total Protein Albumin Prealbumin Triglycerides Cholesterol LDL Cholesterol Direct HDL Cholesterol Urine pH Urine WBC (Auto) Urine Creatinine Urine Total Protein Fluid Total Protein Vancomycin Trough Rheumatoid Factor Complement C4 Miscellaneous Test Crossmatch 10/20/16 10/20/16 10/20/16 06:00 11:49 16:00 WBC 19.7 H RBC 2.51 L Hgb 7.7 L Hct 23.5 L MCV MCH MCHC RDW 17.5 H Plt Count Lymph % (Auto) [place] % (Auto) Lymph # [place] # Baso # Seg Neutrophils % Seg Neuts % (Manual) Lymphocytes % (Manual) Monocytes % (Manual) Eosinophils % (Manual) Basophils % (Manual) Nucleated RBC % Seg Neutrophils # Seg Neutrophils # Man Lymphocytes # (Manual) Monocytes # (Manual) Eosinophils # (Manual) PT INR Fibrinogen dRVVT Confirm Interp Factor V Activity POC ABG pH POC ABG pCO2 POC ABG pO2 ABG pO2 ABG HCO3 ABG Base Excess ABG Hemoglobin Oxyhemoglobin Sodium Potassium Chloride Carbon Dioxide BUN Creatinine Glucose POC Glucose 117 H Lactic Acid Calcium Phosphorus Magnesium Direct Bilirubin AST ALT Alkaline Phosphatase Lactate Dehydrogenase Troponin T C-Reactive Protein Total Protein Albumin Prealbumin Triglycerides Cholesterol LDL Cholesterol Direct HDL Cholesterol Urine pH Urine WBC (Auto) Urine Creatinine Urine Total Protein Fluid Total Protein Vancomycin Trough Rheumatoid Factor Complement C4 Miscellaneous Test Flexitest 1 H Crossmatch 10/20/16 10/20/16 10/21/16 18:36 23:39 04:00 WBC RBC Hgb Hct MCV MCH MCHC RDW Plt Count Lymph % (Auto) [place] % (Auto) Lymph # [place] # Baso # Seg Neutrophils % Seg Neuts % (Manual) Lymphocytes % (Manual) Monocytes % (Manual) Eosinophils % (Manual) Basophils % (Manual) Nucleated RBC % Seg Neutrophils # Seg Neutrophils # Man Lymphocytes # (Manual) Monocytes # (Manual) Eosinophils # (Manual) PT INR Fibrinogen dRVVT Confirm Interp Factor V Activity POC ABG pH POC ABG pCO2 POC ABG pO2 ABG pO2 ABG HCO3 ABG Base Excess ABG Hemoglobin Oxyhemoglobin Sodium Potassium 5.4 H D Chloride Carbon Dioxide 15 L BUN 110 H Creatinine 3.0 H Glucose POC Glucose 127 H 114 H Lactic Acid Calcium Phosphorus Magnesium Direct Bilirubin AST ALT Alkaline Phosphatase Lactate Dehydrogenase Troponin T C-Reactive Protein Total Protein Albumin Prealbumin Triglycerides Cholesterol LDL Cholesterol Direct HDL Cholesterol Urine pH Urine WBC (Auto) Urine Creatinine Urine Total Protein Fluid Total Protein Vancomycin Trough Rheumatoid Factor Complement C4 Miscellaneous Test Crossmatch 10/21/16 10/21/16 10/22/16 05:54 23:46 05:18 WBC RBC Hgb Hct MCV MCH MCHC RDW Plt Count Lymph % (Auto) [place] % (Auto) Lymph # [place] # Baso # Seg Neutrophils % Seg Neuts % (Manual) Lymphocytes % (Manual) Monocytes % (Manual) Eosinophils % (Manual) Basophils % (Manual) Nucleated RBC % Seg Neutrophils # Seg Neutrophils # Man Lymphocytes # (Manual) Monocytes # (Manual) Eosinophils # (Manual) PT INR Fibrinogen dRVVT Confirm Interp Factor V Activity POC ABG pH POC ABG pCO2 POC ABG pO2 ABG pO2 ABG HCO3 ABG Base Excess ABG Hemoglobin Oxyhemoglobin Sodium Potassium Chloride Carbon Dioxide BUN Creatinine Glucose POC Glucose 119 H 108 H 109 H Lactic Acid Calcium Phosphorus Magnesium Direct Bilirubin AST ALT Alkaline Phosphatase Lactate Dehydrogenase Troponin T C-Reactive Protein Total Protein Albumin Prealbumin Triglycerides Cholesterol LDL Cholesterol Direct HDL Cholesterol Urine pH Urine WBC (Auto) Urine Creatinine Urine Total Protein Fluid Total Protein Vancomycin Trough Rheumatoid Factor Complement C4 Miscellaneous Test Crossmatch 10/22/16 10/22/16 10/22/16 06:40 06:40 06:40 WBC 14.0 H RBC 2.03 L Hgb 7.0 L Hct 20.5 L MCV 98 H MCH 34 H MCHC 35 H RDW 17.8 H Plt Count Lymph % (Auto) [place] % (Auto) 9.9 H Lymph # [place] # 1.4 H Baso # 0.2 H Seg Neutrophils % 72.0 H Seg Neuts % (Manual) Lymphocytes % (Manual) Monocytes % (Manual) Eosinophils % (Manual) Basophils % (Manual) Nucleated RBC % Seg Neutrophils # 10.0 H Seg Neutrophils # Man Lymphocytes # (Manual) Monocytes # (Manual) Eosinophils # (Manual) PT INR Fibrinogen dRVVT Confirm Interp Factor V Activity POC ABG pH POC ABG pCO2 POC ABG pO2 ABG pO2 ABG HCO3 ABG Base Excess ABG Hemoglobin Oxyhemoglobin Sodium 130 L D Potassium Chloride 92.4 L Carbon Dioxide 20 L BUN 50 H Creatinine 1.6 H Glucose 589 H* POC Glucose Lactic Acid Calcium 7.8 L D Phosphorus Magnesium 1.60 L Direct Bilirubin AST ALT Alkaline Phosphatase Lactate Dehydrogenase Troponin T C-Reactive Protein Total Protein Albumin Prealbumin Triglycerides Cholesterol LDL Cholesterol Direct HDL Cholesterol Urine pH Urine WBC (Auto) Urine Creatinine Urine Total Protein Fluid Total Protein Vancomycin Trough Rheumatoid Factor Complement C4 Miscellaneous Test Crossmatch 10/22/16 10/22/16 10/22/16 11:39 16:44 23:36 WBC RBC Hgb Hct MCV MCH MCHC RDW Plt Count Lymph % (Auto) [place] % (Auto) Lymph # [place] # Baso # Seg Neutrophils % Seg Neuts % (Manual) Lymphocytes % (Manual) Monocytes % (Manual) Eosinophils % (Manual) Basophils % (Manual) Nucleated RBC % Seg Neutrophils # Seg Neutrophils # Man Lymphocytes # (Manual) Monocytes # (Manual) Eosinophils # (Manual) PT INR Fibrinogen dRVVT Confirm Interp Factor V Activity POC ABG pH POC ABG pCO2 POC ABG pO2 ABG pO2 ABG HCO3 ABG Base Excess ABG Hemoglobin Oxyhemoglobin Sodium Potassium Chloride Carbon Dioxide BUN Creatinine Glucose POC Glucose 142 H 163 H 123 H Lactic Acid Calcium Phosphorus Magnesium Direct Bilirubin AST ALT Alkaline Phosphatase Lactate Dehydrogenase Troponin T C-Reactive Protein Total Protein Albumin Prealbumin Triglycerides Cholesterol LDL Cholesterol Direct HDL Cholesterol Urine pH Urine WBC (Auto) Urine Creatinine Urine Total Protein Fluid Total Protein Vancomycin Trough Rheumatoid Factor Complement C4 Miscellaneous Test Crossmatch 10/23/16 10/23/16 10/23/16 04:58 06:00 12:12 WBC RBC Hgb Hct MCV MCH MCHC RDW Plt Count Lymph % (Auto) [place] % (Auto) Lymph # [place] # Baso # Seg Neutrophils % Seg Neuts % (Manual) Lymphocytes % (Manual) Monocytes % (Manual) Eosinophils % (Manual) Basophils % (Manual) Nucleated RBC % Seg Neutrophils # Seg Neutrophils # Man Lymphocytes # (Manual) Monocytes # (Manual) Eosinophils # (Manual) PT INR Fibrinogen dRVVT Confirm Interp Factor V Activity POC ABG pH POC ABG pCO2 POC ABG pO2 ABG pO2 ABG HCO3 ABG Base Excess ABG Hemoglobin Oxyhemoglobin Sodium 133 L Potassium 3.5 L Chloride 96.1 L Carbon Dioxide 18 L BUN 76 H Creatinine 2.1 H Glucose POC Glucose 133 H 138 H Lactic Acid Calcium 8.3 L Phosphorus Magnesium Direct Bilirubin AST ALT Alkaline Phosphatase Lactate Dehydrogenase Troponin T C-Reactive Protein Total Protein Albumin Prealbumin Triglycerides Cholesterol LDL Cholesterol Direct HDL Cholesterol Urine pH Urine WBC (Auto) Urine Creatinine Urine Total Protein Fluid Total Protein Vancomycin Trough Rheumatoid Factor Complement C4 Miscellaneous Test Crossmatch 10/23/16 10/23/16 10/24/16 16:53 23:37 04:00 WBC RBC Hgb Hct MCV MCH MCHC RDW Plt Count Lymph % (Auto) [place] % (Auto) Lymph # [place] # Baso # Seg Neutrophils % Seg Neuts % (Manual) Lymphocytes % (Manual) Monocytes % (Manual) Eosinophils % (Manual) Basophils % (Manual) Nucleated RBC % Seg Neutrophils # Seg Neutrophils # Man Lymphocytes # (Manual) Monocytes # (Manual) Eosinophils # (Manual) PT INR Fibrinogen dRVVT Confirm Interp Factor V Activity POC ABG pH POC ABG pCO2 POC ABG pO2 ABG pO2 ABG HCO3 ABG Base Excess ABG Hemoglobin Oxyhemoglobin Sodium 131 L Potassium Chloride 94.5 L Carbon Dioxide 19 L BUN 97 H Creatinine 2.6 H Glucose 110 H POC Glucose 125 H 123 H Lactic Acid Calcium 8.3 L Phosphorus Magnesium Direct Bilirubin AST ALT Alkaline Phosphatase Lactate Dehydrogenase Troponin T C-Reactive Protein Total Protein Albumin Prealbumin Triglycerides Cholesterol LDL Cholesterol Direct HDL Cholesterol Urine pH Urine WBC (Auto) Urine Creatinine Urine Total Protein Fluid Total Protein Vancomycin Trough Rheumatoid Factor Complement C4 Miscellaneous Test Crossmatch 10/24/16 10/24/16 10/24/16 07:49 11:39 17:52 WBC RBC Hgb 6.0 L Hct 19.7 L* MCV MCH MCHC RDW Plt Count Lymph % (Auto) [place] % (Auto) Lymph # [place] # Baso # Seg Neutrophils % Seg Neuts % (Manual) Lymphocytes % (Manual) Monocytes % (Manual) Eosinophils % (Manual) Basophils % (Manual) Nucleated RBC % Seg Neutrophils # Seg Neutrophils # Man Lymphocytes # (Manual) Monocytes # (Manual) Eosinophils # (Manual) PT INR Fibrinogen dRVVT Confirm Interp Factor V Activity POC ABG pH POC ABG pCO2 POC ABG pO2 ABG pO2 ABG HCO3 ABG Base Excess ABG Hemoglobin Oxyhemoglobin Sodium Potassium Chloride Carbon Dioxide BUN Creatinine Glucose POC Glucose 106 H 158 H Lactic Acid Calcium Phosphorus Magnesium Direct Bilirubin AST ALT Alkaline Phosphatase Lactate Dehydrogenase Troponin T C-Reactive Protein Total Protein Albumin Prealbumin Triglycerides Cholesterol LDL Cholesterol Direct HDL Cholesterol Urine pH Urine WBC (Auto) Urine Creatinine Urine Total Protein Fluid Total Protein Vancomycin Trough Rheumatoid Factor Complement C4 Miscellaneous Test Crossmatch 10/24/16 10/24/16 10/24/16 20:00 22:27 Unknown WBC RBC Hgb 9.4 L D Hct 27.5 L D MCV MCH MCHC RDW Plt Count Lymph % (Auto) [place] % (Auto) Lymph # [place] # Baso # Seg Neutrophils % Seg Neuts % (Manual) Lymphocytes % (Manual) Monocytes % (Manual) Eosinophils % (Manual) Basophils % (Manual) Nucleated RBC % Seg Neutrophils # Seg Neutrophils # Man Lymphocytes # (Manual) Monocytes # (Manual) Eosinophils # (Manual) PT INR Fibrinogen dRVVT Confirm Interp Factor V Activity POC ABG pH POC ABG pCO2 POC ABG pO2 ABG pO2 ABG HCO3 ABG Base Excess ABG Hemoglobin Oxyhemoglobin Sodium Potassium Chloride Carbon Dioxide BUN Creatinine Glucose POC Glucose 125 H Lactic Acid Calcium Phosphorus Magnesium Direct Bilirubin AST ALT Alkaline Phosphatase Lactate Dehydrogenase Troponin T C-Reactive Protein Total Protein Albumin Prealbumin Triglycerides Cholesterol LDL Cholesterol Direct HDL Cholesterol Urine pH Urine WBC (Auto) Urine Creatinine Urine Total Protein Fluid Total Protein Vancomycin Trough Rheumatoid Factor Complement C4 Miscellaneous Test Crossmatch See Detail 10/25/16 10/25/16 10/25/16 04:00 04:00 04:00 WBC 14.2 H RBC 2.98 L Hgb 9.0 L Hct 26.2 L MCV MCH MCHC RDW 16.6 H Plt Count Lymph % (Auto) [place] % (Auto) 10.7 H Lymph # [place] # 1.5 H Baso # Seg Neutrophils % 73.6 H Seg Neuts % (Manual) Lymphocytes % (Manual) Monocytes % (Manual) Eosinophils % (Manual) Basophils % (Manual) Nucleated RBC % Seg Neutrophils # 10.5 H Seg Neutrophils # Man Lymphocytes # (Manual) Monocytes # (Manual) Eosinophils # (Manual) PT INR Fibrinogen dRVVT Confirm Interp Factor V Activity POC ABG pH POC ABG pCO2 POC ABG pO2 ABG pO2 ABG HCO3 ABG Base Excess ABG Hemoglobin Oxyhemoglobin Sodium 132 L Potassium Chloride 94.7 L Carbon Dioxide BUN 51 H Creatinine 1.6 H Glucose 130 H POC Glucose Lactic Acid Calcium 8.3 L Phosphorus 1.60 L D Magnesium Direct Bilirubin AST ALT Alkaline Phosphatase Lactate Dehydrogenase Troponin T C-Reactive Protein Total Protein Albumin Prealbumin Triglycerides Cholesterol LDL Cholesterol Direct HDL Cholesterol Urine pH Urine WBC (Auto) Urine Creatinine Urine Total Protein Fluid Total Protein Vancomycin Trough Rheumatoid Factor Complement C4 Miscellaneous Test Crossmatch 10/25/16 10/25/16 10/25/16 04:32 11:48 17:22 WBC RBC Hgb Hct MCV MCH MCHC RDW Plt Count Lymph % (Auto) [place] % (Auto) Lymph # [place] # Baso # Seg Neutrophils % Seg Neuts % (Manual) Lymphocytes % (Manual) Monocytes % (Manual) Eosinophils % (Manual) Basophils % (Manual) Nucleated RBC % Seg Neutrophils # Seg Neutrophils # Man Lymphocytes # (Manual) Monocytes # (Manual) Eosinophils # (Manual) PT INR Fibrinogen dRVVT Confirm Interp Factor V Activity POC ABG pH POC ABG pCO2 POC ABG pO2 ABG pO2 ABG HCO3 ABG Base Excess ABG Hemoglobin Oxyhemoglobin Sodium Potassium Chloride Carbon Dioxide BUN Creatinine Glucose POC Glucose 124 H 171 H 120 H Lactic Acid Calcium Phosphorus Magnesium Direct Bilirubin AST ALT Alkaline Phosphatase Lactate Dehydrogenase Troponin T C-Reactive Protein Total Protein Albumin Prealbumin Triglycerides Cholesterol LDL Cholesterol Direct HDL Cholesterol Urine pH Urine WBC (Auto) Urine Creatinine Urine Total Protein Fluid Total Protein Vancomycin Trough Rheumatoid Factor Complement C4 Miscellaneous Test Crossmatch 10/26/16 10/26/16 10/26/16 04:54 07:06 07:06 WBC 16.9 H RBC 3.06 L Hgb 9.1 L Hct 26.9 L MCV MCH MCHC RDW 16.9 H Plt Count Lymph % (Auto) [place] % (Auto) Lymph # [place] # Baso # Seg Neutrophils % Seg Neuts % (Manual) 71.0 H Lymphocytes % (Manual) 5.0 L Monocytes % (Manual) 12.0 H Eosinophils % (Manual) Basophils % (Manual) Nucleated RBC % Seg Neutrophils # Seg Neutrophils # Man 12.0 H Lymphocytes # (Manual) 0.8 L Monocytes # (Manual) 2.0 H Eosinophils # (Manual) PT INR Fibrinogen dRVVT Confirm Interp Factor V Activity POC ABG pH POC ABG pCO2 POC ABG pO2 ABG pO2 ABG HCO3 ABG Base Excess ABG Hemoglobin Oxyhemoglobin Sodium 135 L Potassium Chloride 97.1 L Carbon Dioxide BUN 73 H Creatinine 2.2 H Glucose 117 H POC Glucose 123 H Lactic Acid Calcium Phosphorus 1.70 L Magnesium Direct Bilirubin AST ALT Alkaline Phosphatase Lactate Dehydrogenase Troponin T C-Reactive Protein Total Protein Albumin Prealbumin Triglycerides Cholesterol LDL Cholesterol Direct HDL Cholesterol Urine pH Urine WBC (Auto) Urine Creatinine Urine Total Protein Fluid Total Protein Vancomycin Trough Rheumatoid Factor Complement C4 Miscellaneous Test Crossmatch 10/26/16 10/26/16 10/26/16 12:12 17:29 23:42 WBC RBC Hgb Hct MCV MCH MCHC RDW Plt Count Lymph % (Auto) [place] % (Auto) Lymph # [place] # Baso # Seg Neutrophils % Seg Neuts % (Manual) Lymphocytes % (Manual) Monocytes % (Manual) Eosinophils % (Manual) Basophils % (Manual) Nucleated RBC % Seg Neutrophils # Seg Neutrophils # Man Lymphocytes # (Manual) Monocytes # (Manual) Eosinophils # (Manual) PT INR Fibrinogen dRVVT Confirm Interp Factor V Activity POC ABG pH POC ABG pCO2 POC ABG pO2 ABG pO2 ABG HCO3 ABG Base Excess ABG Hemoglobin Oxyhemoglobin Sodium Potassium Chloride Carbon Dioxide BUN Creatinine Glucose POC Glucose 126 H 161 H 118 H Lactic Acid Calcium Phosphorus Magnesium Direct Bilirubin AST ALT Alkaline Phosphatase Lactate Dehydrogenase Troponin T C-Reactive Protein Total Protein Albumin Prealbumin Triglycerides Cholesterol LDL Cholesterol Direct HDL Cholesterol Urine pH Urine WBC (Auto) Urine Creatinine Urine Total Protein Fluid Total Protein Vancomycin Trough Rheumatoid Factor Complement C4 Miscellaneous Test Crossmatch 10/27/16 10/27/16 10/27/16 05:03 06:30 06:30 WBC 13.9 H RBC 3.09 L Hgb 9.2 L Hct 27.5 L MCV MCH MCHC RDW 17.0 H Plt Count Lymph % (Auto) [place] % (Auto) Lymph # [place] # Baso # Seg Neutrophils % Seg Neuts % (Manual) 78.0 H Lymphocytes % (Manual) Monocytes % (Manual) Eosinophils % (Manual) Basophils % (Manual) Nucleated RBC % 2.0 H Seg Neutrophils # Seg Neutrophils # Man 10.8 H Lymphocytes # (Manual) Monocytes # (Manual) 1.0 H Eosinophils # (Manual) PT INR Fibrinogen dRVVT Confirm Interp Factor V Activity POC ABG pH POC ABG pCO2 POC ABG pO2 ABG pO2 ABG HCO3 ABG Base Excess ABG Hemoglobin Oxyhemoglobin Sodium Potassium Chloride Carbon Dioxide BUN 40 H Creatinine 1.5 H Glucose 135 H POC Glucose 107 H Lactic Acid Calcium 8.3 L Phosphorus 1.30 L D Magnesium Direct Bilirubin AST ALT Alkaline Phosphatase Lactate Dehydrogenase Troponin T C-Reactive Protein Total Protein Albumin Prealbumin Triglycerides Cholesterol LDL Cholesterol Direct HDL Cholesterol Urine pH Urine WBC (Auto) Urine Creatinine Urine Total Protein Fluid Total Protein Vancomycin Trough Rheumatoid Factor Complement C4 Miscellaneous Test Crossmatch 10/27/16 10/27/16 10/27/16 13:27 18:07 23:40 WBC RBC Hgb Hct MCV MCH MCHC RDW Plt Count Lymph % (Auto) [place] % (Auto) Lymph # [place] # Baso # Seg Neutrophils % Seg Neuts % (Manual) Lymphocytes % (Manual) Monocytes % (Manual) Eosinophils % (Manual) Basophils % (Manual) Nucleated RBC % Seg Neutrophils # Seg Neutrophils # Man Lymphocytes # (Manual) Monocytes # (Manual) Eosinophils # (Manual) PT INR Fibrinogen dRVVT Confirm Interp Factor V Activity POC ABG pH POC ABG pCO2 POC ABG pO2 ABG pO2 ABG HCO3 ABG Base Excess ABG Hemoglobin Oxyhemoglobin Sodium Potassium Chloride Carbon Dioxide BUN Creatinine Glucose POC Glucose 117 H 121 H 118 H Lactic Acid Calcium Phosphorus Magnesium Direct Bilirubin AST ALT Alkaline Phosphatase Lactate Dehydrogenase Troponin T C-Reactive Protein Total Protein Albumin Prealbumin Triglycerides Cholesterol LDL Cholesterol Direct HDL Cholesterol Urine pH Urine WBC (Auto) Urine Creatinine Urine Total Protein Fluid Total Protein Vancomycin Trough Rheumatoid Factor Complement C4 Miscellaneous Test Crossmatch 10/28/16 10/28/16 10/28/16 05:48 06:45 06:45 WBC 14.7 H RBC 3.05 L Hgb 9.0 L Hct 26.9 L MCV MCH MCHC RDW 16.8 H Plt Count Lymph % (Auto) 8.2 L [place] % (Auto) 8.4 H Lymph # [place] # 1.2 H Baso # Seg Neutrophils % 81.9 H Seg Neuts % (Manual) Lymphocytes % (Manual) Monocytes % (Manual) Eosinophils % (Manual) Basophils % (Manual) Nucleated RBC % Seg Neutrophils # 12.1 H Seg Neutrophils # Man Lymphocytes # (Manual) Monocytes # (Manual) Eosinophils # (Manual) PT INR Fibrinogen dRVVT Confirm Interp Factor V Activity POC ABG pH POC ABG pCO2 POC ABG pO2 ABG pO2 ABG HCO3 ABG Base Excess ABG Hemoglobin Oxyhemoglobin Sodium Potassium Chloride Carbon Dioxide BUN 60 H Creatinine 1.9 H Glucose 120 H POC Glucose 114 H Lactic Acid Calcium Phosphorus Magnesium Direct Bilirubin AST ALT Alkaline Phosphatase Lactate Dehydrogenase Troponin T C-Reactive Protein Total Protein Albumin Prealbumin Triglycerides Cholesterol LDL Cholesterol Direct HDL Cholesterol Urine pH Urine WBC (Auto) Urine Creatinine Urine Total Protein Fluid Total Protein Vancomycin Trough Rheumatoid Factor Complement C4 Miscellaneous Test Crossmatch 10/28/16 10/28/16 10/29/16 17:08 23:50 05:10 WBC RBC Hgb Hct MCV MCH MCHC RDW Plt Count Lymph % (Auto) [place] % (Auto) Lymph # [place] # Baso # Seg Neutrophils % Seg Neuts % (Manual) Lymphocytes % (Manual) Monocytes % (Manual) Eosinophils % (Manual) Basophils % (Manual) Nucleated RBC % Seg Neutrophils # Seg Neutrophils # Man Lymphocytes # (Manual) Monocytes # (Manual) Eosinophils # (Manual) PT INR Fibrinogen dRVVT Confirm Interp Factor V Activity POC ABG pH POC ABG pCO2 POC ABG pO2 ABG pO2 ABG HCO3 ABG Base Excess ABG Hemoglobin Oxyhemoglobin Sodium Potassium Chloride Carbon Dioxide BUN Creatinine Glucose POC Glucose 109 H 110 H 124 H Lactic Acid Calcium Phosphorus Magnesium Direct Bilirubin AST ALT Alkaline Phosphatase Lactate Dehydrogenase Troponin T C-Reactive Protein Total Protein Albumin Prealbumin Triglycerides Cholesterol LDL Cholesterol Direct HDL Cholesterol Urine pH Urine WBC (Auto) Urine Creatinine Urine Total Protein Fluid Total Protein Vancomycin Trough Rheumatoid Factor Complement C4 Miscellaneous Test Crossmatch 10/29/16 10/29/16 10/29/16 07:45 07:45 12:19 WBC 14.7 H RBC 3.15 L Hgb 9.3 L Hct 28.9 L MCV MCH MCHC RDW 17.0 H Plt Count Lymph % (Auto) 11.9 L [place] % (Auto) 8.6 H Lymph # [place] # 1.3 H Baso # Seg Neutrophils % 78.1 H Seg Neuts % (Manual) Lymphocytes % (Manual) Monocytes % (Manual) Eosinophils % (Manual) Basophils % (Manual) Nucleated RBC % Seg Neutrophils # 11.4 H Seg Neutrophils # Man Lymphocytes # (Manual) Monocytes # (Manual) Eosinophils # (Manual) PT INR Fibrinogen dRVVT Confirm Interp Factor V Activity POC ABG pH POC ABG pCO2 POC ABG pO2 ABG pO2 ABG HCO3 ABG Base Excess ABG Hemoglobin Oxyhemoglobin Sodium Potassium 5.1 H Chloride Carbon Dioxide 19 L BUN 78 H Creatinine 2.2 H Glucose 116 H POC Glucose 118 H Lactic Acid Calcium Phosphorus Magnesium Direct Bilirubin AST ALT Alkaline Phosphatase Lactate Dehydrogenase Troponin T C-Reactive Protein Total Protein Albumin Prealbumin Triglycerides Cholesterol LDL Cholesterol Direct HDL Cholesterol Urine pH Urine WBC (Auto) Urine Creatinine Urine Total Protein Fluid Total Protein Vancomycin Trough Rheumatoid Factor Complement C4 Miscellaneous Test Crossmatch 10/29/16 10/30/16 10/30/16 17:49 01:52 03:28 WBC RBC Hgb Hct MCV MCH MCHC RDW Plt Count Lymph % (Auto) [place] % (Auto) Lymph # [place] # Baso # Seg Neutrophils % Seg Neuts % (Manual) Lymphocytes % (Manual) Monocytes % (Manual) Eosinophils % (Manual) Basophils % (Manual) Nucleated RBC % Seg Neutrophils # Seg Neutrophils # Man Lymphocytes # (Manual) Monocytes # (Manual) Eosinophils # (Manual) PT INR Fibrinogen dRVVT Confirm Interp Factor V Activity POC ABG pH POC ABG pCO2 POC ABG pO2 ABG pO2 ABG HCO3 ABG Base Excess ABG Hemoglobin Oxyhemoglobin Sodium Potassium 5.4 H Chloride 97.5 L Carbon Dioxide 19 L BUN 90 H Creatinine 2.5 H Glucose POC Glucose 120 H 129 H Lactic Acid Calcium Phosphorus 5.20 H Magnesium Direct Bilirubin AST ALT Alkaline Phosphatase Lactate Dehydrogenase Troponin T C-Reactive Protein Total Protein Albumin Prealbumin Triglycerides Cholesterol LDL Cholesterol Direct HDL Cholesterol Urine pH Urine WBC (Auto) Urine Creatinine Urine Total Protein Fluid Total Protein Vancomycin Trough Rheumatoid Factor Complement C4 Miscellaneous Test Crossmatch 10/30/16 10/30/16 10/30/16 03:28 08:19 08:19 WBC 11.6 H 15.9 H RBC 2.75 L 2.82 L Hgb 7.9 L 8.3 L Hct 24.2 L 25.2 L MCV MCH MCHC RDW 16.7 H 17.2 H Plt Count Lymph % (Auto) [place] % (Auto) 9.8 H Lymph # [place] # 1.1 H Baso # Seg Neutrophils % 74.2 H Seg Neuts % (Manual) Lymphocytes % (Manual) Monocytes % (Manual) Eosinophils % (Manual) Basophils % (Manual) Nucleated RBC % Seg Neutrophils # 8.6 H Seg Neutrophils # Man Lymphocytes # (Manual) Monocytes # (Manual) Eosinophils # (Manual) PT INR Fibrinogen dRVVT Confirm Interp Factor V Activity POC ABG pH POC ABG pCO2 POC ABG pO2 ABG pO2 ABG HCO3 ABG Base Excess ABG Hemoglobin Oxyhemoglobin Sodium Potassium 5.3 H Chloride 97.4 L Carbon Dioxide 19 L BUN 93 H Creatinine 2.6 H Glucose POC Glucose Lactic Acid Calcium Phosphorus Magnesium Direct Bilirubin AST ALT Alkaline Phosphatase Lactate Dehydrogenase Troponin T C-Reactive Protein Total Protein Albumin Prealbumin Triglycerides Cholesterol LDL Cholesterol Direct HDL Cholesterol Urine pH Urine WBC (Auto) Urine Creatinine Urine Total Protein Fluid Total Protein Vancomycin Trough Rheumatoid Factor Complement C4 Miscellaneous Test Crossmatch 10/30/16 10/30/16 10/31/16 17:11 23:56 00:40 WBC RBC Hgb Hct MCV MCH MCHC RDW Plt Count Lymph % (Auto) [place] % (Auto) Lymph # [place] # Baso # Seg Neutrophils % Seg Neuts % (Manual) Lymphocytes % (Manual) Monocytes % (Manual) Eosinophils % (Manual) Basophils % (Manual) Nucleated RBC % Seg Neutrophils # Seg Neutrophils # Man Lymphocytes # (Manual) Monocytes # (Manual) Eosinophils # (Manual) PT INR Fibrinogen dRVVT Confirm Interp Factor V Activity POC ABG pH POC ABG pCO2 POC ABG pO2 ABG pO2 ABG HCO3 ABG Base Excess ABG Hemoglobin Oxyhemoglobin Sodium Potassium Chloride Carbon Dioxide BUN Creatinine Glucose POC Glucose 106 H 117 H 120 H Lactic Acid Calcium Phosphorus Magnesium Direct Bilirubin AST ALT Alkaline Phosphatase Lactate Dehydrogenase Troponin T C-Reactive Protein Total Protein Albumin Prealbumin Triglycerides Cholesterol LDL Cholesterol Direct HDL Cholesterol Urine pH Urine WBC (Auto) Urine Creatinine Urine Total Protein Fluid Total Protein Vancomycin Trough Rheumatoid Factor Complement C4 Miscellaneous Test Crossmatch 10/31/16 10/31/16 10/31/16 05:43 07:15 07:15 WBC 12.1 H RBC 2.63 L Hgb 7.7 L Hct 23.3 L MCV MCH MCHC RDW 16.7 H Plt Count Lymph % (Auto) 11.7 L [place] % (Auto) 7.7 H Lymph # [place] # 0.9 H Baso # Seg Neutrophils % 78.0 H Seg Neuts % (Manual) Lymphocytes % (Manual) Monocytes % (Manual) Eosinophils % (Manual) Basophils % (Manual) Nucleated RBC % Seg Neutrophils # 9.4 H Seg Neutrophils # Man Lymphocytes # (Manual) Monocytes # (Manual) Eosinophils # (Manual) PT INR Fibrinogen dRVVT Confirm Interp Factor V Activity POC ABG pH POC ABG pCO2 POC ABG pO2 ABG pO2 ABG HCO3 ABG Base Excess ABG Hemoglobin Oxyhemoglobin Sodium Potassium Chloride 96.4 L Carbon Dioxide 21 L BUN 99 H Creatinine 2.6 H Glucose 144 H POC Glucose 125 H Lactic Acid Calcium Phosphorus 4.80 H Magnesium Direct Bilirubin AST ALT Alkaline Phosphatase Lactate Dehydrogenase Troponin T C-Reactive Protein Total Protein Albumin Prealbumin Triglycerides Cholesterol LDL Cholesterol Direct HDL Cholesterol Urine pH Urine WBC (Auto) Urine Creatinine Urine Total Protein Fluid Total Protein Vancomycin Trough Rheumatoid Factor Complement C4 Miscellaneous Test Crossmatch 10/31/16 10/31/16 11/01/16 11:46 18:34 00:20 WBC RBC Hgb Hct MCV MCH MCHC RDW Plt Count Lymph % (Auto) [place] % (Auto) Lymph # [place] # Baso # Seg Neutrophils % Seg Neuts % (Manual) Lymphocytes % (Manual) Monocytes % (Manual) Eosinophils % (Manual) Basophils % (Manual) Nucleated RBC % Seg Neutrophils # Seg Neutrophils # Man Lymphocytes # (Manual) Monocytes # (Manual) Eosinophils # (Manual) PT INR Fibrinogen dRVVT Confirm Interp Factor V Activity POC ABG pH POC ABG pCO2 POC ABG pO2 ABG pO2 ABG HCO3 ABG Base Excess ABG Hemoglobin Oxyhemoglobin Sodium Potassium Chloride Carbon Dioxide BUN Creatinine Glucose POC Glucose 159 H 140 H 132 H Lactic Acid Calcium Phosphorus Magnesium Direct Bilirubin AST ALT Alkaline Phosphatase Lactate Dehydrogenase Troponin T C-Reactive Protein Total Protein Albumin Prealbumin Triglycerides Cholesterol LDL Cholesterol Direct HDL Cholesterol Urine pH Urine WBC (Auto) Urine Creatinine Urine Total Protein Fluid Total Protein Vancomycin Trough Rheumatoid Factor Complement C4 Miscellaneous Test Crossmatch 11/01/16 11/01/16 11/01/16 04:55 04:55 06:11 WBC 11.2 H RBC 2.68 L Hgb 7.5 L Hct 23.7 L MCV MCH MCHC RDW 16.1 H Plt Count Lymph % (Auto) [place] % (Auto) 9.8 H Lymph # [place] # 1.1 H Baso # Seg Neutrophils % 70.8 H Seg Neuts % (Manual) Lymphocytes % (Manual) Monocytes % (Manual) Eosinophils % (Manual) Basophils % (Manual) Nucleated RBC % Seg Neutrophils # 7.9 H Seg Neutrophils # Man Lymphocytes # (Manual) Monocytes # (Manual) Eosinophils # (Manual) PT INR Fibrinogen dRVVT Confirm Interp Factor V Activity POC ABG pH POC ABG pCO2 POC ABG pO2 ABG pO2 ABG HCO3 ABG Base Excess ABG Hemoglobin Oxyhemoglobin Sodium Potassium 3.3 L D Chloride Carbon Dioxide BUN 61 H Creatinine 1.9 H Glucose 114 H POC Glucose 115 H Lactic Acid Calcium Phosphorus 1.80 L D Magnesium Direct Bilirubin AST ALT Alkaline Phosphatase Lactate Dehydrogenase Troponin T C-Reactive Protein Total Protein Albumin Prealbumin Triglycerides Cholesterol LDL Cholesterol Direct HDL Cholesterol Urine pH Urine WBC (Auto) Urine Creatinine Urine Total Protein Fluid Total Protein Vancomycin Trough Rheumatoid Factor Complement C4 Miscellaneous Test Crossmatch 11/01/16 11/01/16 11/01/16 12:29 18:23 23:58 WBC RBC Hgb Hct MCV MCH MCHC RDW Plt Count Lymph % (Auto) [place] % (Auto) Lymph # [place] # Baso # Seg Neutrophils % Seg Neuts % (Manual) Lymphocytes % (Manual) Monocytes % (Manual) Eosinophils % (Manual) Basophils % (Manual) Nucleated RBC % Seg Neutrophils # Seg Neutrophils # Man Lymphocytes # (Manual) Monocytes # (Manual) Eosinophils # (Manual) PT INR Fibrinogen dRVVT Confirm Interp Factor V Activity POC ABG pH POC ABG pCO2 POC ABG pO2 ABG pO2 ABG HCO3 ABG Base Excess ABG Hemoglobin Oxyhemoglobin Sodium Potassium Chloride Carbon Dioxide BUN Creatinine Glucose POC Glucose 142 H 143 H 128 H Lactic Acid Calcium Phosphorus Magnesium Direct Bilirubin AST ALT Alkaline Phosphatase Lactate Dehydrogenase Troponin T C-Reactive Protein Total Protein Albumin Prealbumin Triglycerides Cholesterol LDL Cholesterol Direct HDL Cholesterol Urine pH Urine WBC (Auto) Urine Creatinine Urine Total Protein Fluid Total Protein Vancomycin Trough Rheumatoid Factor Complement C4 Miscellaneous Test Crossmatch 11/02/16 11/02/16 11/02/16 04:16 05:29 11:58 WBC RBC Hgb Hct MCV MCH MCHC RDW Plt Count Lymph % (Auto) [place] % (Auto) Lymph # [place] # Baso # Seg Neutrophils % Seg Neuts % (Manual) Lymphocytes % (Manual) Monocytes % (Manual) Eosinophils % (Manual) Basophils % (Manual) Nucleated RBC % Seg Neutrophils # Seg Neutrophils # Man Lymphocytes # (Manual) Monocytes # (Manual) Eosinophils # (Manual) PT INR Fibrinogen dRVVT Confirm Interp Factor V Activity POC ABG pH POC ABG pCO2 POC ABG pO2 ABG pO2 ABG HCO3 ABG Base Excess ABG Hemoglobin Oxyhemoglobin Sodium Potassium 3.1 L Chloride Carbon Dioxide BUN 73 H Creatinine 2.3 H Glucose 112 H POC Glucose 135 H 149 H Lactic Acid Calcium Phosphorus Magnesium Direct Bilirubin AST ALT Alkaline Phosphatase Lactate Dehydrogenase Troponin T C-Reactive Protein Total Protein Albumin Prealbumin Triglycerides Cholesterol LDL Cholesterol Direct HDL Cholesterol Urine pH Urine WBC (Auto) Urine Creatinine Urine Total Protein Fluid Total Protein Vancomycin Trough Rheumatoid Factor Complement C4 Miscellaneous Test Crossmatch 11/02/16 11/02/16 11/03/16 17:42 22:54 06:00 WBC RBC Hgb Hct MCV MCH MCHC RDW Plt Count Lymph % (Auto) [place] % (Auto) Lymph # [place] # Baso # Seg Neutrophils % Seg Neuts % (Manual) Lymphocytes % (Manual) Monocytes % (Manual) Eosinophils % (Manual) Basophils % (Manual) Nucleated RBC % Seg Neutrophils # Seg Neutrophils # Man Lymphocytes # (Manual) Monocytes # (Manual) Eosinophils # (Manual) PT INR Fibrinogen dRVVT Confirm Interp Factor V Activity POC ABG pH POC ABG pCO2 POC ABG pO2 ABG pO2 ABG HCO3 ABG Base Excess ABG Hemoglobin Oxyhemoglobin Sodium Potassium Chloride 96.7 L Carbon Dioxide BUN 41 H Creatinine 1.5 H Glucose 145 H POC Glucose 182 H 115 H Lactic Acid Calcium Phosphorus 1.60 L D Magnesium 1.50 L Direct Bilirubin AST ALT Alkaline Phosphatase Lactate Dehydrogenase Troponin T C-Reactive Protein Total Protein Albumin Prealbumin Triglycerides Cholesterol LDL Cholesterol Direct HDL Cholesterol Urine pH Urine WBC (Auto) Urine Creatinine Urine Total Protein Fluid Total Protein Vancomycin Trough Rheumatoid Factor Complement C4 Miscellaneous Test Crossmatch 11/03/16 11/03/16 11/03/16 11:53 17:45 23:37 WBC RBC Hgb Hct MCV MCH MCHC RDW Plt Count Lymph % (Auto) [place] % (Auto) Lymph # [place] # Baso # Seg Neutrophils % Seg Neuts % (Manual) Lymphocytes % (Manual) Monocytes % (Manual) Eosinophils % (Manual) Basophils % (Manual) Nucleated RBC % Seg Neutrophils # Seg Neutrophils # Man Lymphocytes # (Manual) Monocytes # (Manual) Eosinophils # (Manual) PT INR Fibrinogen dRVVT Confirm Interp Factor V Activity POC ABG pH POC ABG pCO2 POC ABG pO2 ABG pO2 ABG HCO3 ABG Base Excess ABG Hemoglobin Oxyhemoglobin Sodium Potassium Chloride Carbon Dioxide BUN Creatinine Glucose POC Glucose 131 H 134 H 113 H Lactic Acid Calcium Phosphorus Magnesium Direct Bilirubin AST ALT Alkaline Phosphatase Lactate Dehydrogenase Troponin T C-Reactive Protein Total Protein Albumin Prealbumin Triglycerides Cholesterol LDL Cholesterol Direct HDL Cholesterol Urine pH Urine WBC (Auto) Urine Creatinine Urine Total Protein Fluid Total Protein Vancomycin Trough Rheumatoid Factor Complement C4 Miscellaneous Test Crossmatch 11/04/16 11/04/16 11/04/16 05:41 06:00 12:10 WBC RBC Hgb Hct MCV MCH MCHC RDW Plt Count Lymph % (Auto) [place] % (Auto) Lymph # [place] # Baso # Seg Neutrophils % Seg Neuts % (Manual) Lymphocytes % (Manual) Monocytes % (Manual) Eosinophils % (Manual) Basophils % (Manual) Nucleated RBC % Seg Neutrophils # Seg Neutrophils # Man Lymphocytes # (Manual) Monocytes # (Manual) Eosinophils # (Manual) PT INR Fibrinogen dRVVT Confirm Interp Factor V Activity POC ABG pH POC ABG pCO2 POC ABG pO2 ABG pO2 ABG HCO3 ABG Base Excess ABG Hemoglobin Oxyhemoglobin Sodium Potassium Chloride 96.7 L Carbon Dioxide BUN 52 H Creatinine 1.9 H Glucose 126 H POC Glucose 137 H 191 H Lactic Acid Calcium Phosphorus Magnesium Direct Bilirubin AST ALT Alkaline Phosphatase Lactate Dehydrogenase Troponin T C-Reactive Protein Total Protein Albumin Prealbumin Triglycerides Cholesterol LDL Cholesterol Direct HDL Cholesterol Urine pH Urine WBC (Auto) Urine Creatinine Urine Total Protein Fluid Total Protein Vancomycin Trough Rheumatoid Factor Complement C4 Miscellaneous Test Crossmatch 11/04/16 11/05/16 11/05/16 22:57 03:10 05:10 WBC RBC Hgb Hct MCV MCH MCHC RDW Plt Count Lymph % (Auto) [place] % (Auto) Lymph # [place] # Baso # Seg Neutrophils % Seg Neuts % (Manual) Lymphocytes % (Manual) Monocytes % (Manual) Eosinophils % (Manual) Basophils % (Manual) Nucleated RBC % Seg Neutrophils # Seg Neutrophils # Man Lymphocytes # (Manual) Monocytes # (Manual) Eosinophils # (Manual) PT INR Fibrinogen dRVVT Confirm Interp Factor V Activity POC ABG pH POC ABG pCO2 POC ABG pO2 ABG pO2 ABG HCO3 ABG Base Excess ABG Hemoglobin Oxyhemoglobin Sodium 136 L Potassium Chloride 97.2 L Carbon Dioxide BUN 32 H Creatinine 1.3 H Glucose 123 H POC Glucose 125 H 108 H Lactic Acid Calcium 7.8 L Phosphorus Magnesium Direct Bilirubin AST ALT Alkaline Phosphatase Lactate Dehydrogenase Troponin T C-Reactive Protein Total Protein Albumin Prealbumin Triglycerides Cholesterol LDL Cholesterol Direct HDL Cholesterol Urine pH Urine WBC (Auto) Urine Creatinine Urine Total Protein Fluid Total Protein Vancomycin Trough Rheumatoid Factor Complement C4 Miscellaneous Test Crossmatch 11/05/16 11/05/16 11/05/16 12:23 13:09 13:25 WBC RBC Hgb Hct MCV MCH MCHC RDW Plt Count Lymph % (Auto) [place] % (Auto) Lymph # [place] # Baso # Seg Neutrophils % Seg Neuts % (Manual) Lymphocytes % (Manual) Monocytes % (Manual) Eosinophils % (Manual) Basophils % (Manual) Nucleated RBC % Seg Neutrophils # Seg Neutrophils # Man Lymphocytes # (Manual) Monocytes # (Manual) Eosinophils # (Manual) PT INR Fibrinogen dRVVT Confirm Interp Factor V Activity POC ABG pH POC ABG pCO2 POC ABG pO2 ABG pO2 ABG HCO3 ABG Base Excess ABG Hemoglobin Oxyhemoglobin Sodium Potassium Chloride Carbon Dioxide BUN Creatinine Glucose POC Glucose 124 H Lactic Acid Calcium Phosphorus Magnesium Direct Bilirubin AST ALT Alkaline Phosphatase Lactate Dehydrogenase Troponin T C-Reactive Protein 11.40 H Total Protein Albumin Prealbumin Triglycerides Cholesterol LDL Cholesterol Direct HDL Cholesterol Urine pH 9.0 H Urine WBC (Auto) Urine Creatinine Urine Total Protein Fluid Total Protein Vancomycin Trough Rheumatoid Factor Complement C4 Miscellaneous Test Crossmatch 11/05/16 11/05/16 11/05/16 13:25 17:54 23:42 WBC RBC Hgb Hct MCV MCH MCHC RDW Plt Count Lymph % (Auto) [place] % (Auto) Lymph # [place] # Baso # Seg Neutrophils % Seg Neuts % (Manual) Lymphocytes % (Manual) Monocytes % (Manual) Eosinophils % (Manual) Basophils % (Manual) Nucleated RBC % Seg Neutrophils # Seg Neutrophils # Man Lymphocytes # (Manual) Monocytes # (Manual) Eosinophils # (Manual) PT INR Fibrinogen dRVVT Confirm Interp Factor V Activity POC ABG pH POC ABG pCO2 POC ABG pO2 ABG pO2 ABG HCO3 ABG Base Excess ABG Hemoglobin Oxyhemoglobin Sodium Potassium Chloride Carbon Dioxide BUN Creatinine Glucose POC Glucose 114 H 134 H Lactic Acid Calcium Phosphorus Magnesium Direct Bilirubin AST ALT Alkaline Phosphatase Lactate Dehydrogenase Troponin T C-Reactive Protein Total Protein Albumin Prealbumin Triglycerides Cholesterol LDL Cholesterol Direct HDL Cholesterol Urine pH Urine WBC (Auto) Urine Creatinine Urine Total Protein Fluid Total Protein Vancomycin Trough Rheumatoid Factor Complement C4 Miscellaneous Test Flexitest 1 H Crossmatch 11/06/16 11/06/16 11/06/16 04:56 06:25 06:25 WBC RBC 2.50 L Hgb 7.3 L Hct 22.5 L MCV MCH MCHC RDW 16.9 H Plt Count Lymph % (Auto) [place] % (Auto) 10.5 H Lymph # [place] # 1.1 H Baso # Seg Neutrophils % Seg Neuts % (Manual) Lymphocytes % (Manual) Monocytes % (Manual) Eosinophils % (Manual) Basophils % (Manual) Nucleated RBC % Seg Neutrophils # Seg Neutrophils # Man Lymphocytes # (Manual) Monocytes # (Manual) Eosinophils # (Manual) PT INR Fibrinogen dRVVT Confirm Interp Factor V Activity POC ABG pH POC ABG pCO2 POC ABG pO2 ABG pO2 ABG HCO3 ABG Base Excess ABG Hemoglobin Oxyhemoglobin Sodium Potassium 5.1 H Chloride 95.9 L Carbon Dioxide BUN 52 H Creatinine 1.8 H Glucose 117 H POC Glucose 120 H Lactic Acid Calcium Phosphorus Magnesium Direct Bilirubin AST 103 H ALT 77 H Alkaline Phosphatase 285 H Lactate Dehydrogenase Troponin T C-Reactive Protein Total Protein 6.2 L Albumin 1.8 L Prealbumin 0.180 L Triglycerides Cholesterol LDL Cholesterol Direct HDL Cholesterol Urine pH Urine WBC (Auto) Urine Creatinine Urine Total Protein Fluid Total Protein Vancomycin Trough Rheumatoid Factor Complement C4 Miscellaneous Test Crossmatch 11/06/16 11/06/16 11/06/16 11:56 17:14 23:52 WBC RBC Hgb Hct MCV MCH MCHC RDW Plt Count Lymph % (Auto) [place] % (Auto) Lymph # [place] # Baso # Seg Neutrophils % Seg Neuts % (Manual) Lymphocytes % (Manual) Monocytes % (Manual) Eosinophils % (Manual) Basophils % (Manual) Nucleated RBC % Seg Neutrophils # Seg Neutrophils # Man Lymphocytes # (Manual) Monocytes # (Manual) Eosinophils # (Manual) PT INR Fibrinogen dRVVT Confirm Interp Factor V Activity POC ABG pH POC ABG pCO2 POC ABG pO2 ABG pO2 ABG HCO3 ABG Base Excess ABG Hemoglobin Oxyhemoglobin Sodium Potassium Chloride Carbon Dioxide BUN Creatinine Glucose POC Glucose 141 H 125 H 130 H Lactic Acid Calcium Phosphorus Magnesium Direct Bilirubin AST ALT Alkaline Phosphatase Lactate Dehydrogenase Troponin T C-Reactive Protein Total Protein Albumin Prealbumin Triglycerides Cholesterol LDL Cholesterol Direct HDL Cholesterol Urine pH Urine WBC (Auto) Urine Creatinine Urine Total Protein Fluid Total Protein Vancomycin Trough Rheumatoid Factor Complement C4 Miscellaneous Test Crossmatch 11/07/16 11/07/16 11/07/16 06:30 06:30 09:37 WBC RBC 2.18 L Hgb 6.3 L Hct 19.7 L* MCV MCH MCHC RDW 16.8 H Plt Count Lymph % (Auto) [place] % (Auto) 10.0 H Lymph # [place] # 1.0 H Baso # Seg Neutrophils % Seg Neuts % (Manual) Lymphocytes % (Manual) Monocytes % (Manual) Eosinophils % (Manual) Basophils % (Manual) Nucleated RBC % Seg Neutrophils # Seg Neutrophils # Man Lymphocytes # (Manual) Monocytes # (Manual) Eosinophils # (Manual) PT INR Fibrinogen dRVVT Confirm Interp Factor V Activity POC ABG pH POC ABG pCO2 POC ABG pO2 ABG pO2 ABG HCO3 ABG Base Excess ABG Hemoglobin Oxyhemoglobin Sodium 135 L Potassium Chloride 95.6 L Carbon Dioxide BUN 70 H Creatinine 2.0 H Glucose 126 H POC Glucose Lactic Acid Calcium Phosphorus Magnesium Direct Bilirubin AST ALT Alkaline Phosphatase Lactate Dehydrogenase Troponin T C-Reactive Protein Total Protein Albumin Prealbumin Triglycerides Cholesterol LDL Cholesterol Direct HDL Cholesterol Urine pH Urine WBC (Auto) Urine Creatinine Urine Total Protein Fluid Total Protein Vancomycin Trough Rheumatoid Factor Complement C4 Miscellaneous Test Crossmatch See Detail 11/07/16 11/07/16 11/07/16 12:52 18:51 21:26 WBC RBC Hgb Hct MCV MCH MCHC RDW Plt Count Lymph % (Auto) [place] % (Auto) Lymph # [place] # Baso # Seg Neutrophils % Seg Neuts % (Manual) Lymphocytes % (Manual) Monocytes % (Manual) Eosinophils % (Manual) Basophils % (Manual) Nucleated RBC % Seg Neutrophils # Seg Neutrophils # Man Lymphocytes # (Manual) Monocytes # (Manual) Eosinophils # (Manual) PT INR Fibrinogen dRVVT Confirm Interp Factor V Activity POC ABG pH 7.523 H POC ABG pCO2 34.6 L POC ABG pO2 53 L ABG pO2 ABG HCO3 ABG Base Excess ABG Hemoglobin Oxyhemoglobin Sodium Potassium Chloride Carbon Dioxide BUN Creatinine Glucose POC Glucose 142 H 155 H Lactic Acid Calcium Phosphorus Magnesium Direct Bilirubin AST ALT Alkaline Phosphatase Lactate Dehydrogenase Troponin T C-Reactive Protein Total Protein Albumin Prealbumin Triglycerides Cholesterol LDL Cholesterol Direct HDL Cholesterol Urine pH Urine WBC (Auto) Urine Creatinine Urine Total Protein Fluid Total Protein Vancomycin Trough Rheumatoid Factor Complement C4 Miscellaneous Test Crossmatch 11/07/16 11/08/16 11/08/16 21:34 13:03 23:37 WBC RBC 2.63 L Hgb 7.7 L Hct 22.7 L MCV MCH MCHC RDW 17.0 H Plt Count Lymph % (Auto) [place] % (Auto) Lymph # [place] # Baso # Seg Neutrophils % Seg Neuts % (Manual) Lymphocytes % (Manual) Monocytes % (Manual) Eosinophils % (Manual) Basophils % (Manual) Nucleated RBC % Seg Neutrophils # Seg Neutrophils # Man Lymphocytes # (Manual) Monocytes # (Manual) Eosinophils # (Manual) PT INR Fibrinogen dRVVT Confirm Interp Factor V Activity POC ABG pH 7.478 H POC ABG pCO2 34.0 L POC ABG pO2 50 L ABG pO2 ABG HCO3 ABG Base Excess ABG Hemoglobin Oxyhemoglobin Sodium Potassium Chloride Carbon Dioxide BUN Creatinine Glucose POC Glucose 113 H Lactic Acid Calcium Phosphorus Magnesium Direct Bilirubin AST ALT Alkaline Phosphatase Lactate Dehydrogenase Troponin T C-Reactive Protein Total Protein Albumin Prealbumin Triglycerides Cholesterol LDL Cholesterol Direct HDL Cholesterol Urine pH Urine WBC (Auto) Urine Creatinine Urine Total Protein Fluid Total Protein Vancomycin Trough Rheumatoid Factor Complement C4 Miscellaneous Test Crossmatch 11/09/16 11/09/16 11/09/16 04:35 10:15 18:21 WBC RBC 2.68 L Hgb 7.8 L Hct 23.3 L MCV MCH MCHC RDW 17.0 H Plt Count Lymph % (Auto) [place] % (Auto) 12.1 H Lymph # [place] # 1.1 H Baso # Seg Neutrophils % Seg Neuts % (Manual) Lymphocytes % (Manual) Monocytes % (Manual) Eosinophils % (Manual) Basophils % (Manual) Nucleated RBC % Seg Neutrophils # Seg Neutrophils # Man Lymphocytes # (Manual) Monocytes # (Manual) Eosinophils # (Manual) PT INR Fibrinogen dRVVT Confirm Interp Factor V Activity POC ABG pH POC ABG pCO2 POC ABG pO2 ABG pO2 ABG HCO3 ABG Base Excess ABG Hemoglobin Oxyhemoglobin Sodium Potassium Chloride Carbon Dioxide BUN 51 H Creatinine 1.8 H Glucose POC Glucose 60 L Lactic Acid Calcium 8.3 L Phosphorus Magnesium Direct Bilirubin AST ALT Alkaline Phosphatase Lactate Dehydrogenase Troponin T C-Reactive Protein Total Protein Albumin Prealbumin Triglycerides Cholesterol LDL Cholesterol Direct HDL Cholesterol Urine pH Urine WBC (Auto) Urine Creatinine Urine Total Protein Fluid Total Protein Vancomycin Trough Rheumatoid Factor Complement C4 Miscellaneous Test Crossmatch 11/09/16 11/10/16 11/10/16 18:55 07:00 11:51 WBC RBC Hgb Hct MCV MCH MCHC RDW Plt Count Lymph % (Auto) [place] % (Auto) Lymph # [place] # Baso # Seg Neutrophils % Seg Neuts % (Manual) Lymphocytes % (Manual) Monocytes % (Manual) Eosinophils % (Manual) Basophils % (Manual) Nucleated RBC % Seg Neutrophils # Seg Neutrophils # Man Lymphocytes # (Manual) Monocytes # (Manual) Eosinophils # (Manual) PT INR Fibrinogen dRVVT Confirm Interp Factor V Activity POC ABG pH POC ABG pCO2 POC ABG pO2 ABG pO2 ABG HCO3 ABG Base Excess ABG Hemoglobin Oxyhemoglobin Sodium Potassium 3.0 L D Chloride 97.4 L Carbon Dioxide BUN 28 H Creatinine 1.3 H Glucose POC Glucose 68 L 120 H Lactic Acid Calcium 7.8 L Phosphorus Magnesium Direct Bilirubin AST ALT Alkaline Phosphatase Lactate Dehydrogenase Troponin T C-Reactive Protein Total Protein Albumin Prealbumin Triglycerides Cholesterol LDL Cholesterol Direct HDL Cholesterol Urine pH Urine WBC (Auto) Urine Creatinine Urine Total Protein Fluid Total Protein Vancomycin Trough Rheumatoid Factor Complement C4 Miscellaneous Test Crossmatch 11/10/16 11/11/16 11/11/16 14:20 06:59 06:59 WBC RBC 2.81 L Hgb 8.1 L Hct 24.4 L MCV MCH MCHC RDW 16.4 H Plt Count Lymph % (Auto) [place] % (Auto) 10.8 H Lymph # [place] # 1.0 H Baso # Seg Neutrophils % Seg Neuts % (Manual) Lymphocytes % (Manual) Monocytes % (Manual) Eosinophils % (Manual) Basophils % (Manual) Nucleated RBC % Seg Neutrophils # Seg Neutrophils # Man Lymphocytes # (Manual) Monocytes # (Manual) Eosinophils # (Manual) PT INR Fibrinogen dRVVT Confirm Interp Factor V Activity POC ABG pH POC ABG pCO2 POC ABG pO2 ABG pO2 ABG HCO3 ABG Base Excess ABG Hemoglobin Oxyhemoglobin Sodium Potassium Chloride Carbon Dioxide BUN Creatinine Glucose POC Glucose Lactic Acid Calcium Phosphorus Magnesium Direct Bilirubin AST ALT Alkaline Phosphatase Lactate Dehydrogenase 196 H Troponin T C-Reactive Protein Total Protein 6.1 L Albumin Prealbumin Triglycerides Cholesterol LDL Cholesterol Direct HDL Cholesterol Urine pH Urine WBC (Auto) Urine Creatinine Urine Total Protein Fluid Total Protein < 3.0 L Vancomycin Trough Rheumatoid Factor Complement C4 Miscellaneous Test Crossmatch 11/11/16 11/11/16 11/12/16 06:59 09:50 04:00 WBC RBC Hgb Hct MCV MCH MCHC RDW Plt Count Lymph % (Auto) [place] % (Auto) Lymph # [place] # Baso # Seg Neutrophils % Seg Neuts % (Manual) Lymphocytes % (Manual) Monocytes % (Manual) Eosinophils % (Manual) Basophils % (Manual) Nucleated RBC % Seg Neutrophils # Seg Neutrophils # Man Lymphocytes # (Manual) Monocytes # (Manual) Eosinophils # (Manual) PT INR 1.18 H Fibrinogen dRVVT Confirm Interp Factor V Activity POC ABG pH POC ABG pCO2 POC ABG pO2 ABG pO2 ABG HCO3 ABG Base Excess ABG Hemoglobin Oxyhemoglobin Sodium 136 L 133 L Potassium Chloride 96.1 L 94.8 L Carbon Dioxide 21 L BUN 37 H 42 H Creatinine 1.8 H 2.0 H Glucose POC Glucose Lactic Acid Calcium Phosphorus Magnesium Direct Bilirubin AST ALT Alkaline Phosphatase Lactate Dehydrogenase Troponin T C-Reactive Protein Total Protein Albumin Prealbumin Triglycerides Cholesterol LDL Cholesterol Direct HDL Cholesterol Urine pH Urine WBC (Auto) Urine Creatinine Urine Total Protein Fluid Total Protein Vancomycin Trough Rheumatoid Factor Complement C4 Miscellaneous Test Crossmatch 11/12/16 11/12/16 11/13/16 04:00 23:55 05:53 WBC RBC Hgb 8.9 L Hct 27.2 L MCV MCH MCHC RDW Plt Count Lymph % (Auto) [place] % (Auto) Lymph # [place] # Baso # Seg Neutrophils % Seg Neuts % (Manual) Lymphocytes % (Manual) Monocytes % (Manual) Eosinophils % (Manual) Basophils % (Manual) Nucleated RBC % Seg Neutrophils # Seg Neutrophils # Man Lymphocytes # (Manual) Monocytes # (Manual) Eosinophils # (Manual) PT INR Fibrinogen dRVVT Confirm Interp Factor V Activity POC ABG pH POC ABG pCO2 POC ABG pO2 ABG pO2 ABG HCO3 ABG Base Excess ABG Hemoglobin Oxyhemoglobin Sodium Potassium Chloride Carbon Dioxide BUN Creatinine Glucose POC Glucose 132 H 120 H Lactic Acid Calcium Phosphorus Magnesium Direct Bilirubin AST ALT Alkaline Phosphatase Lactate Dehydrogenase Troponin T C-Reactive Protein Total Protein Albumin Prealbumin Triglycerides Cholesterol LDL Cholesterol Direct HDL Cholesterol Urine pH Urine WBC (Auto) Urine Creatinine Urine Total Protein Fluid Total Protein Vancomycin Trough Rheumatoid Factor Complement C4 Miscellaneous Test Crossmatch 11/13/16 11/13/16 11/13/16 11:43 17:09 23:41 WBC RBC Hgb Hct MCV MCH MCHC RDW Plt Count Lymph % (Auto) [place] % (Auto) Lymph # [place] # Baso # Seg Neutrophils % Seg Neuts % (Manual) Lymphocytes % (Manual) Monocytes % (Manual) Eosinophils % (Manual) Basophils % (Manual) Nucleated RBC % Seg Neutrophils # Seg Neutrophils # Man Lymphocytes # (Manual) Monocytes # (Manual) Eosinophils # (Manual) PT INR Fibrinogen dRVVT Confirm Interp Factor V Activity POC ABG pH POC ABG pCO2 POC ABG pO2 ABG pO2 ABG HCO3 ABG Base Excess ABG Hemoglobin Oxyhemoglobin Sodium Potassium Chloride Carbon Dioxide BUN Creatinine Glucose POC Glucose 114 H 113 H 108 H Lactic Acid Calcium Phosphorus Magnesium Direct Bilirubin AST ALT Alkaline Phosphatase Lactate Dehydrogenase Troponin T C-Reactive Protein Total Protein Albumin Prealbumin Triglycerides Cholesterol LDL Cholesterol Direct HDL Cholesterol Urine pH Urine WBC (Auto) Urine Creatinine Urine Total Protein Fluid Total Protein Vancomycin Trough Rheumatoid Factor Complement C4 Miscellaneous Test Crossmatch 11/13/16 11/15/16 11/15/16 Unknown 00:37 03:30 WBC 11.2 H RBC 2.72 L Hgb 7.6 L Hct 23.4 L MCV MCH MCHC RDW 16.5 H Plt Count Lymph % (Auto) [place] % (Auto) Lymph # [place] # Baso # Seg Neutrophils % Seg Neuts % (Manual) Lymphocytes % (Manual) Monocytes % (Manual) Eosinophils % (Manual) Basophils % (Manual) Nucleated RBC % Seg Neutrophils # Seg Neutrophils # Man Lymphocytes # (Manual) Monocytes # (Manual) Eosinophils # (Manual) PT INR Fibrinogen dRVVT Confirm Interp Factor V Activity POC ABG pH POC ABG pCO2 POC ABG pO2 ABG pO2 ABG HCO3 ABG Base Excess ABG Hemoglobin Oxyhemoglobin Sodium 135 L Potassium Chloride 95.2 L Carbon Dioxide BUN 52 H Creatinine 2.2 H Glucose POC Glucose 108 H Lactic Acid Calcium Phosphorus Magnesium Direct Bilirubin AST ALT Alkaline Phosphatase Lactate Dehydrogenase Troponin T C-Reactive Protein Total Protein Albumin Prealbumin Triglycerides Cholesterol LDL Cholesterol Direct HDL Cholesterol Urine pH Urine WBC (Auto) Urine Creatinine Urine Total Protein Fluid Total Protein Vancomycin Trough Rheumatoid Factor Complement C4 Miscellaneous Test Crossmatch 11/15/16 11/15/16 11/15/16 03:30 05:04 11:50 WBC RBC Hgb Hct MCV MCH MCHC RDW Plt Count Lymph % (Auto) [place] % (Auto) Lymph # [place] # Baso # Seg Neutrophils % Seg Neuts % (Manual) Lymphocytes % (Manual) Monocytes % (Manual) Eosinophils % (Manual) Basophils % (Manual) Nucleated RBC % Seg Neutrophils # Seg Neutrophils # Man Lymphocytes # (Manual) Monocytes # (Manual) Eosinophils # (Manual) PT INR Fibrinogen dRVVT Confirm Interp Factor V Activity POC ABG pH POC ABG pCO2 POC ABG pO2 ABG pO2 ABG HCO3 ABG Base Excess ABG Hemoglobin Oxyhemoglobin Sodium Potassium 3.4 L Chloride Carbon Dioxide BUN 25 H Creatinine 1.5 H Glucose 103 H POC Glucose 121 H 144 H Lactic Acid Calcium Phosphorus Magnesium Direct Bilirubin AST ALT Alkaline Phosphatase Lactate Dehydrogenase Troponin T C-Reactive Protein Total Protein Albumin Prealbumin Triglycerides Cholesterol LDL Cholesterol Direct HDL Cholesterol Urine pH Urine WBC (Auto) Urine Creatinine Urine Total Protein Fluid Total Protein Vancomycin Trough Rheumatoid Factor Complement C4 Miscellaneous Test Crossmatch 11/15/16 11/15/16 11/16/16 21:28 23:20 11:44 WBC RBC Hgb Hct MCV MCH MCHC RDW Plt Count Lymph % (Auto) [place] % (Auto) Lymph # [place] # Baso # Seg Neutrophils % Seg Neuts % (Manual) Lymphocytes % (Manual) Monocytes % (Manual) Eosinophils % (Manual) Basophils % (Manual) Nucleated RBC % Seg Neutrophils # Seg Neutrophils # Man Lymphocytes # (Manual) Monocytes # (Manual) Eosinophils # (Manual) PT INR Fibrinogen dRVVT Confirm Interp Factor V Activity POC ABG pH 7.462 H POC ABG pCO2 POC ABG pO2 71 L ABG pO2 ABG HCO3 ABG Base Excess ABG Hemoglobin Oxyhemoglobin Sodium Potassium Chloride Carbon Dioxide BUN Creatinine Glucose POC Glucose 116 H 133 H Lactic Acid Calcium Phosphorus Magnesium Direct Bilirubin AST ALT Alkaline Phosphatase Lactate Dehydrogenase Troponin T C-Reactive Protein Total Protein Albumin Prealbumin Triglycerides Cholesterol LDL Cholesterol Direct HDL Cholesterol Urine pH Urine WBC (Auto) Urine Creatinine Urine Total Protein Fluid Total Protein Vancomycin Trough Rheumatoid Factor Complement C4 Miscellaneous Test Crossmatch 11/16/16 11/16/16 11/16/16 12:20 17:05 23:35 WBC 11.7 H RBC 2.73 L Hgb 7.6 L Hct 23.7 L MCV MCH MCHC RDW 16.6 H Plt Count Lymph % (Auto) [place] % (Auto) Lymph # [place] # Baso # Seg Neutrophils % Seg Neuts % (Manual) Lymphocytes % (Manual) Monocytes % (Manual) Eosinophils % (Manual) Basophils % (Manual) Nucleated RBC % Seg Neutrophils # Seg Neutrophils # Man Lymphocytes # (Manual) Monocytes # (Manual) Eosinophils # (Manual) PT INR Fibrinogen dRVVT Confirm Interp Factor V Activity POC ABG pH POC ABG pCO2 POC ABG pO2 ABG pO2 ABG HCO3 ABG Base Excess ABG Hemoglobin Oxyhemoglobin Sodium Potassium Chloride Carbon Dioxide BUN Creatinine Glucose POC Glucose 154 H 125 H Lactic Acid Calcium Phosphorus Magnesium Direct Bilirubin AST ALT Alkaline Phosphatase Lactate Dehydrogenase Troponin T C-Reactive Protein Total Protein Albumin Prealbumin Triglycerides Cholesterol LDL Cholesterol Direct HDL Cholesterol Urine pH Urine WBC (Auto) Urine Creatinine Urine Total Protein Fluid Total Protein Vancomycin Trough Rheumatoid Factor Complement C4 Miscellaneous Test Crossmatch 11/17/16 11/17/16 11/17/16 03:20 03:20 03:20 WBC RBC 2.55 L Hgb 7.3 L Hct 21.9 L MCV MCH MCHC RDW 16.6 H Plt Count Lymph % (Auto) [place] % (Auto) 11.5 H Lymph # [place] # 1.1 H Baso # Seg Neutrophils % Seg Neuts % (Manual) Lymphocytes % (Manual) Monocytes % (Manual) Eosinophils % (Manual) Basophils % (Manual) Nucleated RBC % Seg Neutrophils # Seg Neutrophils # Man Lymphocytes # (Manual) Monocytes # (Manual) Eosinophils # (Manual) PT 16.8 H INR 1.37 H Fibrinogen dRVVT Confirm Interp Factor V Activity POC ABG pH POC ABG pCO2 POC ABG pO2 ABG pO2 ABG HCO3 ABG Base Excess ABG Hemoglobin Oxyhemoglobin Sodium Potassium 3.5 L Chloride Carbon Dioxide BUN 21 H Creatinine Glucose POC Glucose Lactic Acid Calcium 7.9 L Phosphorus Magnesium Direct Bilirubin AST ALT Alkaline Phosphatase Lactate Dehydrogenase Troponin T C-Reactive Protein Total Protein Albumin Prealbumin Triglycerides Cholesterol LDL Cholesterol Direct HDL Cholesterol Urine pH Urine WBC (Auto) Urine Creatinine Urine Total Protein Fluid Total Protein Vancomycin Trough Rheumatoid Factor Complement C4 Miscellaneous Test Crossmatch 11/17/16 11/17/16 11/17/16 06:34 11:21 21:22 WBC RBC Hgb Hct MCV MCH MCHC RDW Plt Count Lymph % (Auto) [place] % (Auto) Lymph # [place] # Baso # Seg Neutrophils % Seg Neuts % (Manual) Lymphocytes % (Manual) Monocytes % (Manual) Eosinophils % (Manual) Basophils % (Manual) Nucleated RBC % Seg Neutrophils # Seg Neutrophils # Man Lymphocytes # (Manual) Monocytes # (Manual) Eosinophils # (Manual) PT INR Fibrinogen dRVVT Confirm Interp Factor V Activity POC ABG pH 7.467 H POC ABG pCO2 POC ABG pO2 73 L ABG pO2 ABG HCO3 ABG Base Excess ABG Hemoglobin Oxyhemoglobin Sodium Potassium Chloride Carbon Dioxide BUN Creatinine Glucose POC Glucose 121 H 119 H Lactic Acid Calcium Phosphorus Magnesium Direct Bilirubin AST ALT Alkaline Phosphatase Lactate Dehydrogenase Troponin T C-Reactive Protein Total Protein Albumin Prealbumin Triglycerides Cholesterol LDL Cholesterol Direct HDL Cholesterol Urine pH Urine WBC (Auto) Urine Creatinine Urine Total Protein Fluid Total Protein Vancomycin Trough Rheumatoid Factor Complement C4 Miscellaneous Test Crossmatch 11/18/16 11/18/16 11/19/16 12:16 17:19 00:00 WBC RBC Hgb Hct MCV MCH MCHC RDW Plt Count Lymph % (Auto) [place] % (Auto) Lymph # [place] # Baso # Seg Neutrophils % Seg Neuts % (Manual) Lymphocytes % (Manual) Monocytes % (Manual) Eosinophils % (Manual) Basophils % (Manual) Nucleated RBC % Seg Neutrophils # Seg Neutrophils # Man Lymphocytes # (Manual) Monocytes # (Manual) Eosinophils # (Manual) PT INR Fibrinogen dRVVT Confirm Interp Factor V Activity POC ABG pH POC ABG pCO2 POC ABG pO2 ABG pO2 ABG HCO3 ABG Base Excess ABG Hemoglobin Oxyhemoglobin Sodium Potassium Chloride Carbon Dioxide BUN Creatinine Glucose POC Glucose 124 H 162 H 139 H Lactic Acid Calcium Phosphorus Magnesium Direct Bilirubin AST ALT Alkaline Phosphatase Lactate Dehydrogenase Troponin T C-Reactive Protein Total Protein Albumin Prealbumin Triglycerides Cholesterol LDL Cholesterol Direct HDL Cholesterol Urine pH Urine WBC (Auto) Urine Creatinine Urine Total Protein Fluid Total Protein Vancomycin Trough Rheumatoid Factor Complement C4 Miscellaneous Test Crossmatch 11/19/16 11/19/16 11/20/16 05:00 12:43 00:40 WBC RBC Hgb Hct MCV MCH MCHC RDW Plt Count Lymph % (Auto) [place] % (Auto) Lymph # [place] # Baso # Seg Neutrophils % Seg Neuts % (Manual) Lymphocytes % (Manual) Monocytes % (Manual) Eosinophils % (Manual) Basophils % (Manual) Nucleated RBC % Seg Neutrophils # Seg Neutrophils # Man Lymphocytes # (Manual) Monocytes # (Manual) Eosinophils # (Manual) PT INR Fibrinogen dRVVT Confirm Interp Factor V Activity POC ABG pH POC ABG pCO2 POC ABG pO2 ABG pO2 ABG HCO3 ABG Base Excess ABG Hemoglobin Oxyhemoglobin Sodium Potassium Chloride Carbon Dioxide BUN Creatinine Glucose POC Glucose 110 H 125 H 136 H Lactic Acid Calcium Phosphorus Magnesium Direct Bilirubin AST ALT Alkaline Phosphatase Lactate Dehydrogenase Troponin T C-Reactive Protein Total Protein Albumin Prealbumin Triglycerides Cholesterol LDL Cholesterol Direct HDL Cholesterol Urine pH Urine WBC (Auto) Urine Creatinine Urine Total Protein Fluid Total Protein Vancomycin Trough Rheumatoid Factor Complement C4 Miscellaneous Test Crossmatch 11/20/16 11/20/16 11/20/16 05:00 05:00 05:51 WBC 13.1 H RBC 2.74 L Hgb 7.7 L Hct 23.6 L MCV MCH MCHC RDW 16.9 H Plt Count Lymph % (Auto) [place] % (Auto) 10.8 H Lymph # [place] # 1.4 H Baso # Seg Neutrophils % Seg Neuts % (Manual) Lymphocytes % (Manual) Monocytes % (Manual) Eosinophils % (Manual) Basophils % (Manual) Nucleated RBC % Seg Neutrophils # 7.9 H Seg Neutrophils # Man Lymphocytes # (Manual) Monocytes # (Manual) Eosinophils # (Manual) PT INR Fibrinogen dRVVT Confirm Interp Factor V Activity POC ABG pH POC ABG pCO2 POC ABG pO2 ABG pO2 ABG HCO3 ABG Base Excess ABG Hemoglobin Oxyhemoglobin Sodium Potassium Chloride Carbon Dioxide BUN 31 H Creatinine 1.8 H Glucose 129 H POC Glucose 133 H Lactic Acid Calcium Phosphorus Magnesium Direct Bilirubin AST ALT Alkaline Phosphatase Lactate Dehydrogenase Troponin T C-Reactive Protein Total Protein Albumin Prealbumin Triglycerides Cholesterol LDL Cholesterol Direct HDL Cholesterol Urine pH Urine WBC (Auto) Urine Creatinine Urine Total Protein Fluid Total Protein Vancomycin Trough Rheumatoid Factor Complement C4 Miscellaneous Test Crossmatch 11/20/16 11/20/16 11/21/16 12:40 18:10 01:20 WBC RBC Hgb Hct MCV MCH MCHC RDW Plt Count Lymph % (Auto) [place] % (Auto) Lymph # [place] # Baso # Seg Neutrophils % Seg Neuts % (Manual) Lymphocytes % (Manual) Monocytes % (Manual) Eosinophils % (Manual) Basophils % (Manual) Nucleated RBC % Seg Neutrophils # Seg Neutrophils # Man Lymphocytes # (Manual) Monocytes # (Manual) Eosinophils # (Manual) PT INR Fibrinogen dRVVT Confirm Interp Factor V Activity POC ABG pH POC ABG pCO2 POC ABG pO2 ABG pO2 ABG HCO3 ABG Base Excess ABG Hemoglobin Oxyhemoglobin Sodium Potassium Chloride Carbon Dioxide BUN Creatinine Glucose POC Glucose 134 H 138 H 136 H Lactic Acid Calcium Phosphorus Magnesium Direct Bilirubin AST ALT Alkaline Phosphatase Lactate Dehydrogenase Troponin T C-Reactive Protein Total Protein Albumin Prealbumin Triglycerides Cholesterol LDL Cholesterol Direct HDL Cholesterol Urine pH Urine WBC (Auto) Urine Creatinine Urine Total Protein Fluid Total Protein Vancomycin Trough Rheumatoid Factor Complement C4 Miscellaneous Test Crossmatch 11/21/16 11/21/16 11/21/16 07:04 07:45 07:45 WBC 22.0 H RBC 2.91 L Hgb 8.2 L Hct 25.4 L MCV MCH MCHC RDW 17.1 H Plt Count Lymph % (Auto) [place] % (Auto) Lymph # [place] # Baso # Seg Neutrophils % Seg Neuts % (Manual) Lymphocytes % (Manual) 8.0 L Monocytes % (Manual) Eosinophils % (Manual) Basophils % (Manual) Nucleated RBC % Seg Neutrophils # Seg Neutrophils # Man 14.7 H Lymphocytes # (Manual) Monocytes # (Manual) 1.1 H Eosinophils # (Manual) PT INR Fibrinogen dRVVT Confirm Interp Factor V Activity POC ABG pH POC ABG pCO2 POC ABG pO2 ABG pO2 ABG HCO3 ABG Base Excess ABG Hemoglobin Oxyhemoglobin Sodium Potassium Chloride Carbon Dioxide BUN 42 H Creatinine 2.0 H Glucose POC Glucose 108 H Lactic Acid Calcium Phosphorus Magnesium Direct Bilirubin AST ALT Alkaline Phosphatase Lactate Dehydrogenase Troponin T C-Reactive Protein Total Protein Albumin Prealbumin Triglycerides Cholesterol LDL Cholesterol Direct HDL Cholesterol Urine pH Urine WBC (Auto) Urine Creatinine Urine Total Protein Fluid Total Protein Vancomycin Trough Rheumatoid Factor Complement C4 Miscellaneous Test Crossmatch 11/21/16 11/21/16 11/21/16 08:38 10:09 11:20 WBC RBC Hgb Hct MCV MCH MCHC RDW Plt Count Lymph % (Auto) [place] % (Auto) Lymph # [place] # Baso # Seg Neutrophils % Seg Neuts % (Manual) Lymphocytes % (Manual) Monocytes % (Manual) Eosinophils % (Manual) Basophils % (Manual) Nucleated RBC % Seg Neutrophils # Seg Neutrophils # Man Lymphocytes # (Manual) Monocytes # (Manual) Eosinophils # (Manual) PT INR Fibrinogen dRVVT Confirm Interp Factor V Activity POC ABG pH 7.346 L POC ABG pCO2 34.4 L POC ABG pO2 314 H ABG pO2 ABG HCO3 ABG Base Excess ABG Hemoglobin Oxyhemoglobin Sodium Potassium Chloride Carbon Dioxide BUN Creatinine Glucose POC Glucose 195 H 153 H Lactic Acid Calcium Phosphorus Magnesium Direct Bilirubin AST ALT Alkaline Phosphatase Lactate Dehydrogenase Troponin T C-Reactive Protein Total Protein Albumin Prealbumin Triglycerides Cholesterol LDL Cholesterol Direct HDL Cholesterol Urine pH Urine WBC (Auto) Urine Creatinine Urine Total Protein Fluid Total Protein Vancomycin Trough Rheumatoid Factor Complement C4 Miscellaneous Test Crossmatch 11/21/16 11/22/16 11/22/16 23:37 04:48 05:00 WBC 29.7 H RBC 2.73 L Hgb 7.5 L Hct 24.2 L MCV MCH 27 L MCHC RDW 17.4 H Plt Count Lymph % (Auto) [place] % (Auto) Lymph # [place] # Baso # Seg Neutrophils % Seg Neuts % (Manual) Lymphocytes % (Manual) 7.0 L Monocytes % (Manual) Eosinophils % (Manual) Basophils % (Manual) Nucleated RBC % Seg Neutrophils # Seg Neutrophils # Man 15.4 H Lymphocytes # (Manual) Monocytes # (Manual) Eosinophils # (Manual) PT INR Fibrinogen dRVVT Confirm Interp Factor V Activity POC ABG pH POC ABG pCO2 24.6 L POC ABG pO2 189 H ABG pO2 ABG HCO3 ABG Base Excess ABG Hemoglobin Oxyhemoglobin Sodium Potassium Chloride Carbon Dioxide BUN Creatinine Glucose POC Glucose 65 L Lactic Acid Calcium Phosphorus Magnesium Direct Bilirubin AST ALT Alkaline Phosphatase Lactate Dehydrogenase Troponin T C-Reactive Protein Total Protein Albumin Prealbumin Triglycerides Cholesterol LDL Cholesterol Direct HDL Cholesterol Urine pH Urine WBC (Auto) Urine Creatinine Urine Total Protein Fluid Total Protein Vancomycin Trough Rheumatoid Factor Complement C4 Miscellaneous Test Crossmatch 11/22/16 11/23/16 11/23/16 05:00 03:44 04:06 WBC RBC 2.52 L Hgb 7.2 L Hct 21.5 L MCV MCH MCHC RDW 17.1 H Plt Count Lymph % (Auto) [place] % (Auto) 12.4 H Lymph # [place] # 1.4 H Baso # Seg Neutrophils % Seg Neuts % (Manual) Lymphocytes % (Manual) Monocytes % (Manual) Eosinophils % (Manual) Basophils % (Manual) Nucleated RBC % Seg Neutrophils # Seg Neutrophils # Man Lymphocytes # (Manual) Monocytes # (Manual) Eosinophils # (Manual) PT INR Fibrinogen dRVVT Confirm Interp Factor V Activity POC ABG pH 7.493 H POC ABG pCO2 29.5 L POC ABG pO2 49 L ABG pO2 ABG HCO3 ABG Base Excess ABG Hemoglobin Oxyhemoglobin Sodium 134 L Potassium Chloride 95.9 L Carbon Dioxide 14 L D BUN 51 H Creatinine 2.6 H Glucose POC Glucose Lactic Acid Calcium Phosphorus Magnesium Direct Bilirubin AST ALT Alkaline Phosphatase Lactate Dehydrogenase Troponin T C-Reactive Protein Total Protein Albumin Prealbumin Triglycerides Cholesterol LDL Cholesterol Direct HDL Cholesterol Urine pH Urine WBC (Auto) Urine Creatinine Urine Total Protein Fluid Total Protein Vancomycin Trough Rheumatoid Factor Complement C4 Miscellaneous Test Crossmatch 11/23/16 11/23/16 11/24/16 04:06 11:29 06:39 WBC RBC Hgb Hct MCV MCH MCHC RDW Plt Count Lymph % (Auto) [place] % (Auto) Lymph # [place] # Baso # Seg Neutrophils % Seg Neuts % (Manual) Lymphocytes % (Manual) Monocytes % (Manual) Eosinophils % (Manual) Basophils % (Manual) Nucleated RBC % Seg Neutrophils # Seg Neutrophils # Man Lymphocytes # (Manual) Monocytes # (Manual) Eosinophils # (Manual) PT INR Fibrinogen dRVVT Confirm Interp Factor V Activity POC ABG pH POC ABG pCO2 POC ABG pO2 ABG pO2 ABG HCO3 ABG Base Excess ABG Hemoglobin Oxyhemoglobin Sodium 136 L Potassium Chloride 95.2 L Carbon Dioxide BUN 60 H Creatinine 2.9 H Glucose POC Glucose 69 L 305 H Lactic Acid Calcium Phosphorus Magnesium 1.60 L Direct Bilirubin AST ALT Alkaline Phosphatase Lactate Dehydrogenase Troponin T C-Reactive Protein Total Protein Albumin Prealbumin Triglycerides Cholesterol LDL Cholesterol Direct HDL Cholesterol Urine pH Urine WBC (Auto) Urine Creatinine Urine Total Protein Fluid Total Protein Vancomycin Trough Rheumatoid Factor Complement C4 Miscellaneous Test Crossmatch 11/24/16 11/24/16 11/24/16 06:43 08:08 08:08 WBC 11.2 H RBC 2.47 L Hgb 6.8 L Hct 20.6 L MCV MCH MCHC RDW 17.0 H Plt Count Lymph % (Auto) [place] % (Auto) 10.3 H Lymph # [place] # 1.2 H Baso # Seg Neutrophils % Seg Neuts % (Manual) Lymphocytes % (Manual) Monocytes % (Manual) Eosinophils % (Manual) Basophils % (Manual) Nucleated RBC % Seg Neutrophils # Seg Neutrophils # Man Lymphocytes # (Manual) Monocytes # (Manual) Eosinophils # (Manual) PT INR Fibrinogen dRVVT Confirm Interp Factor V Activity POC ABG pH POC ABG pCO2 POC ABG pO2 ABG pO2 ABG HCO3 ABG Base Excess ABG Hemoglobin Oxyhemoglobin Sodium 135 L Potassium Chloride 96.3 L Carbon Dioxide BUN 61 H Creatinine 3.1 H Glucose POC Glucose 62 L Lactic Acid Calcium 8.2 L Phosphorus Magnesium Direct Bilirubin AST ALT Alkaline Phosphatase Lactate Dehydrogenase Troponin T C-Reactive Protein Total Protein Albumin Prealbumin Triglycerides Cholesterol LDL Cholesterol Direct HDL Cholesterol Urine pH Urine WBC (Auto) Urine Creatinine Urine Total Protein Fluid Total Protein Vancomycin Trough Rheumatoid Factor Complement C4 Miscellaneous Test Crossmatch 11/24/16 11/24/16 11/24/16 08:34 11:20 12:41 WBC RBC Hgb Hct MCV MCH MCHC RDW Plt Count Lymph % (Auto) [place] % (Auto) Lymph # [place] # Baso # Seg Neutrophils % Seg Neuts % (Manual) Lymphocytes % (Manual) Monocytes % (Manual) Eosinophils % (Manual) Basophils % (Manual) Nucleated RBC % Seg Neutrophils # Seg Neutrophils # Man Lymphocytes # (Manual) Monocytes # (Manual) Eosinophils # (Manual) PT INR Fibrinogen dRVVT Confirm Interp Factor V Activity POC ABG pH POC ABG pCO2 POC ABG pO2 ABG pO2 ABG HCO3 ABG Base Excess ABG Hemoglobin Oxyhemoglobin Sodium Potassium Chloride Carbon Dioxide BUN Creatinine Glucose POC Glucose 108 H Lactic Acid Calcium Phosphorus Magnesium 1.60 L Direct Bilirubin AST ALT Alkaline Phosphatase Lactate Dehydrogenase Troponin T C-Reactive Protein Total Protein Albumin Prealbumin Triglycerides Cholesterol LDL Cholesterol Direct HDL Cholesterol Urine pH Urine WBC (Auto) Urine Creatinine Urine Total Protein Fluid Total Protein Vancomycin Trough Rheumatoid Factor Complement C4 Miscellaneous Test Crossmatch See Detail 11/25/16 11/25/16 11/25/16 00:03 04:42 04:42 WBC RBC 3.03 L Hgb 8.6 L Hct 25.3 L MCV MCH MCHC RDW 16.2 H Plt Count Lymph % (Auto) [place] % (Auto) 8.1 H Lymph # [place] # Baso # Seg Neutrophils % 71.3 H Seg Neuts % (Manual) Lymphocytes % (Manual) Monocytes % (Manual) Eosinophils % (Manual) Basophils % (Manual) Nucleated RBC % Seg Neutrophils # Seg Neutrophils # Man Lymphocytes # (Manual) Monocytes # (Manual) Eosinophils # (Manual) PT INR Fibrinogen dRVVT Confirm Interp Factor V Activity POC ABG pH POC ABG pCO2 POC ABG pO2 ABG pO2 ABG HCO3 ABG Base Excess ABG Hemoglobin Oxyhemoglobin Sodium Potassium Chloride Carbon Dioxide BUN 61 H Creatinine 3.0 H Glucose 102 H POC Glucose 113 H Lactic Acid Calcium 8.2 L Phosphorus Magnesium Direct Bilirubin AST ALT Alkaline Phosphatase 142 H Lactate Dehydrogenase Troponin T C-Reactive Protein Total Protein 5.7 L Albumin 1.5 L Prealbumin Triglycerides Cholesterol LDL Cholesterol Direct HDL Cholesterol Urine pH Urine WBC (Auto) Urine Creatinine Urine Total Protein Fluid Total Protein Vancomycin Trough Rheumatoid Factor Complement C4 Miscellaneous Test Crossmatch 11/25/16 11/25/16 11/25/16 05:12 11:31 14:12 WBC RBC Hgb Hct MCV MCH MCHC RDW Plt Count Lymph % (Auto) [place] % (Auto) Lymph # [place] # Baso # Seg Neutrophils % Seg Neuts % (Manual) Lymphocytes % (Manual) Monocytes % (Manual) Eosinophils % (Manual) Basophils % (Manual) Nucleated RBC % Seg Neutrophils # Seg Neutrophils # Man Lymphocytes # (Manual) Monocytes # (Manual) Eosinophils # (Manual) PT INR Fibrinogen dRVVT Confirm Interp Factor V Activity POC ABG pH 7.487 H POC ABG pCO2 POC ABG pO2 153 H ABG pO2 ABG HCO3 ABG Base Excess ABG Hemoglobin Oxyhemoglobin Sodium Potassium Chloride Carbon Dioxide BUN Creatinine Glucose POC Glucose 131 H 140 H Lactic Acid Calcium Phosphorus Magnesium Direct Bilirubin AST ALT Alkaline Phosphatase Lactate Dehydrogenase Troponin T C-Reactive Protein Total Protein Albumin Prealbumin Triglycerides Cholesterol LDL Cholesterol Direct HDL Cholesterol Urine pH Urine WBC (Auto) Urine Creatinine Urine Total Protein Fluid Total Protein Vancomycin Trough Rheumatoid Factor Complement C4 Miscellaneous Test Crossmatch 11/25/16 11/26/16 11/26/16 17:23 00:09 05:13 WBC RBC 2.94 L Hgb 8.4 L Hct 24.6 L MCV MCH MCHC RDW 16.4 H Plt Count Lymph % (Auto) [place] % (Auto) 12.3 H Lymph # [place] # 1.1 H Baso # Seg Neutrophils % Seg Neuts % (Manual) Lymphocytes % (Manual) Monocytes % (Manual) Eosinophils % (Manual) Basophils % (Manual) Nucleated RBC % Seg Neutrophils # Seg Neutrophils # Man Lymphocytes # (Manual) Monocytes # (Manual) Eosinophils # (Manual) PT INR Fibrinogen dRVVT Confirm Interp Factor V Activity POC ABG pH POC ABG pCO2 POC ABG pO2 ABG pO2 ABG HCO3 ABG Base Excess ABG Hemoglobin Oxyhemoglobin Sodium Potassium Chloride Carbon Dioxide BUN Creatinine Glucose POC Glucose 146 H 112 H Lactic Acid Calcium Phosphorus Magnesium Direct Bilirubin AST ALT Alkaline Phosphatase Lactate Dehydrogenase Troponin T C-Reactive Protein Total Protein Albumin Prealbumin Triglycerides Cholesterol LDL Cholesterol Direct HDL Cholesterol Urine pH Urine WBC (Auto) Urine Creatinine Urine Total Protein Fluid Total Protein Vancomycin Trough Rheumatoid Factor Complement C4 Miscellaneous Test Crossmatch 10/07/17 10/07/17 10/07/17 05:13 05:28 11:53 WBC RBC Hgb Hct MCV MCH MCHC RDW Plt Count Lymph % (Auto) [place] % (Auto) Lymph # [place] # Baso # Seg Neutrophils % Seg Neuts % (Manual) Lymphocytes % (Manual) Monocytes % (Manual) Eosinophils % (Manual) Basophils % (Manual) Nucleated RBC % Seg Neutrophils # Seg Neutrophils # Man Lymphocytes # (Manual) Monocytes # (Manual) Eosinophils # (Manual) PT INR Fibrinogen dRVVT Confirm Interp Factor V Activity POC ABG pH POC ABG pCO2 POC ABG pO2 ABG pO2 ABG HCO3 ABG Base Excess ABG Hemoglobin Oxyhemoglobin Sodium Potassium Chloride 97.8 L Carbon Dioxide BUN 37 H Creatinine 2.0 H Glucose 109 H POC Glucose 117 H 111 H Lactic Acid Calcium 7.9 L Phosphorus 1.80 L D Magnesium Direct Bilirubin AST ALT Alkaline Phosphatase Lactate Dehydrogenase Troponin T C-Reactive Protein Total Protein Albumin Prealbumin Triglycerides Cholesterol LDL Cholesterol Direct HDL Cholesterol Urine pH Urine WBC (Auto) Urine Creatinine Urine Total Protein Fluid Total Protein Vancomycin Trough Rheumatoid Factor Complement C4 Miscellaneous Test Crossmatch 11/26/16 11/27/16 11/27/16 17:14 04:50 06:02 WBC RBC Hgb Hct MCV MCH MCHC RDW Plt Count Lymph % (Auto) [place] % (Auto) Lymph # [place] # Baso # Seg Neutrophils % Seg Neuts % (Manual) Lymphocytes % (Manual) Monocytes % (Manual) Eosinophils % (Manual) Basophils % (Manual) Nucleated RBC % Seg Neutrophils # Seg Neutrophils # Man Lymphocytes # (Manual) Monocytes # (Manual) Eosinophils # (Manual) PT INR Fibrinogen dRVVT Confirm Interp Factor V Activity POC ABG pH POC ABG pCO2 POC ABG pO2 ABG pO2 75.2 L ABG HCO3 26.4 H ABG Base Excess ABG Hemoglobin 7.6 L Oxyhemoglobin 94.8 L Sodium Potassium Chloride Carbon Dioxide BUN 49 H Creatinine 2.3 H Glucose POC Glucose 115 H Lactic Acid Calcium Phosphorus 1.50 L Magnesium Direct Bilirubin AST ALT Alkaline Phosphatase Lactate Dehydrogenase Troponin T C-Reactive Protein Total Protein Albumin Prealbumin Triglycerides Cholesterol LDL Cholesterol Direct HDL Cholesterol Urine pH Urine WBC (Auto) Urine Creatinine Urine Total Protein Fluid Total Protein Vancomycin Trough Rheumatoid Factor Complement C4 Miscellaneous Test Crossmatch 11/27/16 11/27/16 11/27/16 06:02 11:25 17:25 WBC 11.6 H RBC 2.75 L Hgb 7.6 L Hct 23.4 L MCV MCH MCHC RDW 16.5 H Plt Count Lymph % (Auto) [place] % (Auto) Lymph # [place] # Baso # Seg Neutrophils % Seg Neuts % (Manual) Lymphocytes % (Manual) Monocytes % (Manual) Eosinophils % (Manual) Basophils % (Manual) Nucleated RBC % Seg Neutrophils # Seg Neutrophils # Man Lymphocytes # (Manual) Monocytes # (Manual) Eosinophils # (Manual) PT INR Fibrinogen dRVVT Confirm Interp Factor V Activity POC ABG pH POC ABG pCO2 POC ABG pO2 ABG pO2 ABG HCO3 ABG Base Excess ABG Hemoglobin Oxyhemoglobin Sodium Potassium Chloride Carbon Dioxide BUN Creatinine Glucose POC Glucose 114 H 126 H Lactic Acid Calcium Phosphorus Magnesium Direct Bilirubin AST ALT Alkaline Phosphatase Lactate Dehydrogenase Troponin T C-Reactive Protein Total Protein Albumin Prealbumin Triglycerides Cholesterol LDL Cholesterol Direct HDL Cholesterol Urine pH Urine WBC (Auto) Urine Creatinine Urine Total Protein Fluid Total Protein Vancomycin Trough Rheumatoid Factor Complement C4 Miscellaneous Test Crossmatch 11/28/16 11/28/16 11/28/16 04:45 05:33 05:44 WBC RBC Hgb Hct MCV MCH MCHC RDW Plt Count Lymph % (Auto) [place] % (Auto) Lymph # [place] # Baso # Seg Neutrophils % Seg Neuts % (Manual) Lymphocytes % (Manual) Monocytes % (Manual) Eosinophils % (Manual) Basophils % (Manual) Nucleated RBC % Seg Neutrophils # Seg Neutrophils # Man Lymphocytes # (Manual) Monocytes # (Manual) Eosinophils # (Manual) PT INR Fibrinogen dRVVT Confirm Interp Factor V Activity POC ABG pH POC ABG pCO2 POC ABG pO2 ABG pO2 99.3 H ABG HCO3 ABG Base Excess ABG Hemoglobin 8.3 L Oxyhemoglobin Sodium Potassium Chloride Carbon Dioxide BUN 63 H Creatinine 2.4 H Glucose 102 H POC Glucose 108 H Lactic Acid Calcium Phosphorus 1.80 L Magnesium Direct Bilirubin AST ALT Alkaline Phosphatase Lactate Dehydrogenase Troponin T C-Reactive Protein Total Protein Albumin Prealbumin Triglycerides Cholesterol LDL Cholesterol Direct HDL Cholesterol Urine pH Urine WBC (Auto) Urine Creatinine Urine Total Protein Fluid Total Protein Vancomycin Trough Rheumatoid Factor Complement C4 Miscellaneous Test Crossmatch 11/28/16 11/28/16 11/28/16 12:31 16:09 23:46 WBC RBC Hgb Hct MCV MCH MCHC RDW Plt Count Lymph % (Auto) [place] % (Auto) Lymph # [place] # Baso # Seg Neutrophils % Seg Neuts % (Manual) Lymphocytes % (Manual) Monocytes % (Manual) Eosinophils % (Manual) Basophils % (Manual) Nucleated RBC % Seg Neutrophils # Seg Neutrophils # Man Lymphocytes # (Manual) Monocytes # (Manual) Eosinophils # (Manual) PT INR Fibrinogen dRVVT Confirm Interp Factor V Activity POC ABG pH POC ABG pCO2 POC ABG pO2 ABG pO2 ABG HCO3 ABG Base Excess ABG Hemoglobin Oxyhemoglobin Sodium Potassium Chloride Carbon Dioxide BUN Creatinine Glucose POC Glucose 126 H 111 H 119 H Lactic Acid Calcium Phosphorus Magnesium Direct Bilirubin AST ALT Alkaline Phosphatase Lactate Dehydrogenase Troponin T C-Reactive Protein Total Protein Albumin Prealbumin Triglycerides Cholesterol LDL Cholesterol Direct HDL Cholesterol Urine pH Urine WBC (Auto) Urine Creatinine Urine Total Protein Fluid Total Protein Vancomycin Trough Rheumatoid Factor Complement C4 Miscellaneous Test Crossmatch 11/29/16 11/29/16 11/29/16 03:33 04:52 05:10 WBC RBC Hgb Hct MCV MCH MCHC RDW Plt Count Lymph % (Auto) [place] % (Auto) Lymph # [place] # Baso # Seg Neutrophils % Seg Neuts % (Manual) Lymphocytes % (Manual) Monocytes % (Manual) Eosinophils % (Manual) Basophils % (Manual) Nucleated RBC % Seg Neutrophils # Seg Neutrophils # Man Lymphocytes # (Manual) Monocytes # (Manual) Eosinophils # (Manual) PT INR Fibrinogen dRVVT Confirm Interp Factor V Activity POC ABG pH POC ABG pCO2 POC ABG pO2 ABG pO2 ABG HCO3 ABG Base Excess ABG Hemoglobin 7.0 L Oxyhemoglobin 94.9 L Sodium Potassium Chloride Carbon Dioxide BUN 73 H Creatinine 2.7 H Glucose POC Glucose 108 H Lactic Acid Calcium Phosphorus Magnesium Direct Bilirubin AST ALT Alkaline Phosphatase Lactate Dehydrogenase Troponin T C-Reactive Protein Total Protein Albumin Prealbumin Triglycerides Cholesterol LDL Cholesterol Direct HDL Cholesterol Urine pH Urine WBC (Auto) Urine Creatinine Urine Total Protein Fluid Total Protein Vancomycin Trough Rheumatoid Factor Complement C4 Miscellaneous Test Crossmatch 11/29/16 11/29/16 11/29/16 12:16 18:05 23:46 WBC RBC Hgb Hct MCV MCH MCHC RDW Plt Count Lymph % (Auto) [place] % (Auto) Lymph # [place] # Baso # Seg Neutrophils % Seg Neuts % (Manual) Lymphocytes % (Manual) Monocytes % (Manual) Eosinophils % (Manual) Basophils % (Manual) Nucleated RBC % Seg Neutrophils # Seg Neutrophils # Man Lymphocytes # (Manual) Monocytes # (Manual) Eosinophils # (Manual) PT INR Fibrinogen dRVVT Confirm Interp Factor V Activity POC ABG pH POC ABG pCO2 POC ABG pO2 ABG pO2 ABG HCO3 ABG Base Excess ABG Hemoglobin Oxyhemoglobin Sodium Potassium Chloride Carbon Dioxide BUN Creatinine Glucose POC Glucose 133 H 146 H 141 H Lactic Acid Calcium Phosphorus Magnesium Direct Bilirubin AST ALT Alkaline Phosphatase Lactate Dehydrogenase Troponin T C-Reactive Protein Total Protein Albumin Prealbumin Triglycerides Cholesterol LDL Cholesterol Direct HDL Cholesterol Urine pH Urine WBC (Auto) Urine Creatinine Urine Total Protein Fluid Total Protein Vancomycin Trough Rheumatoid Factor Complement C4 Miscellaneous Test Crossmatch 11/30/16 11/30/16 11/30/16 04:17 04:17 04:32 WBC 12.0 H RBC 2.80 L Hgb 7.8 L Hct 23.6 L MCV MCH MCHC RDW 16.6 H Plt Count Lymph % (Auto) [place] % (Auto) 11.3 H Lymph # [place] # 1.4 H Baso # Seg Neutrophils % Seg Neuts % (Manual) Lymphocytes % (Manual) Monocytes % (Manual) Eosinophils % (Manual) Basophils % (Manual) Nucleated RBC % Seg Neutrophils # 8.2 H Seg Neutrophils # Man Lymphocytes # (Manual) Monocytes # (Manual) Eosinophils # (Manual) PT INR Fibrinogen dRVVT Confirm Interp Factor V Activity POC ABG pH POC ABG pCO2 POC ABG pO2 ABG pO2 ABG HCO3 ABG Base Excess ABG Hemoglobin Oxyhemoglobin Sodium 169 H* D Potassium 5.1 H Chloride 121.5 H Carbon Dioxide BUN 34 H Creatinine 1.3 H D Glucose 133 H POC Glucose 131 H Lactic Acid Calcium 10.3 H Phosphorus Magnesium Direct Bilirubin AST ALT Alkaline Phosphatase Lactate Dehydrogenase Troponin T C-Reactive Protein Total Protein Albumin Prealbumin Triglycerides Cholesterol LDL Cholesterol Direct HDL Cholesterol Urine pH Urine WBC (Auto) Urine Creatinine Urine Total Protein Fluid Total Protein Vancomycin Trough Rheumatoid Factor Complement C4 Miscellaneous Test Crossmatch 11/30/16 11/30/16 11/30/16 05:45 11:10 17:26 WBC RBC Hgb Hct MCV MCH MCHC RDW Plt Count Lymph % (Auto) [place] % (Auto) Lymph # [place] # Baso # Seg Neutrophils % Seg Neuts % (Manual) Lymphocytes % (Manual) Monocytes % (Manual) Eosinophils % (Manual) Basophils % (Manual) Nucleated RBC % Seg Neutrophils # Seg Neutrophils # Man Lymphocytes # (Manual) Monocytes # (Manual) Eosinophils # (Manual) PT INR Fibrinogen dRVVT Confirm Interp Factor V Activity POC ABG pH POC ABG pCO2 POC ABG pO2 ABG pO2 ABG HCO3 ABG Base Excess ABG Hemoglobin Oxyhemoglobin Sodium Potassium Chloride Carbon Dioxide BUN 45 H Creatinine 1.6 H Glucose 131 H POC Glucose 146 H 134 H Lactic Acid Calcium Phosphorus Magnesium Direct Bilirubin AST ALT Alkaline Phosphatase Lactate Dehydrogenase Troponin T C-Reactive Protein Total Protein Albumin Prealbumin Triglycerides Cholesterol LDL Cholesterol Direct HDL Cholesterol Urine pH Urine WBC (Auto) Urine Creatinine Urine Total Protein Fluid Total Protein Vancomycin Trough Rheumatoid Factor Complement C4 Miscellaneous Test Crossmatch 11/30/16 12/01/16 12/01/16 23:35 00:06 03:35 WBC RBC Hgb Hct MCV MCH MCHC RDW Plt Count Lymph % (Auto) [place] % (Auto) Lymph # [place] # Baso # Seg Neutrophils % Seg Neuts % (Manual) Lymphocytes % (Manual) Monocytes % (Manual) Eosinophils % (Manual) Basophils % (Manual) Nucleated RBC % Seg Neutrophils # Seg Neutrophils # Man Lymphocytes # (Manual) Monocytes # (Manual) Eosinophils # (Manual) PT INR Fibrinogen dRVVT Confirm Interp Factor V Activity POC ABG pH POC ABG pCO2 POC ABG pO2 ABG pO2 ABG HCO3 ABG Base Excess ABG Hemoglobin 6.9 L Oxyhemoglobin Sodium Potassium Chloride Carbon Dioxide BUN 58 H Creatinine 1.8 H Glucose 146 H POC Glucose 151 H Lactic Acid Calcium Phosphorus Magnesium Direct Bilirubin AST ALT Alkaline Phosphatase Lactate Dehydrogenase Troponin T C-Reactive Protein Total Protein Albumin Prealbumin Triglycerides Cholesterol LDL Cholesterol Direct HDL Cholesterol Urine pH Urine WBC (Auto) Urine Creatinine Urine Total Protein Fluid Total Protein Vancomycin Trough Rheumatoid Factor Complement C4 Miscellaneous Test Crossmatch 12/01/16 12/01/16 12/01/16 03:35 05:47 11:52 WBC 12.3 H RBC 2.82 L Hgb 7.8 L Hct 23.7 L MCV MCH MCHC RDW 16.7 H Plt Count Lymph % (Auto) [place] % (Auto) 9.8 H Lymph # [place] # 1.2 H Baso # Seg Neutrophils % Seg Neuts % (Manual) Lymphocytes % (Manual) Monocytes % (Manual) Eosinophils % (Manual) Basophils % (Manual) Nucleated RBC % Seg Neutrophils # 8.4 H Seg Neutrophils # Man Lymphocytes # (Manual) Monocytes # (Manual) Eosinophils # (Manual) PT INR Fibrinogen dRVVT Confirm Interp Factor V Activity POC ABG pH POC ABG pCO2 POC ABG pO2 ABG pO2 ABG HCO3 ABG Base Excess ABG Hemoglobin Oxyhemoglobin Sodium Potassium Chloride Carbon Dioxide BUN Creatinine Glucose POC Glucose 152 H 152 H Lactic Acid Calcium Phosphorus Magnesium Direct Bilirubin AST ALT Alkaline Phosphatase Lactate Dehydrogenase Troponin T C-Reactive Protein Total Protein Albumin Prealbumin Triglycerides Cholesterol LDL Cholesterol Direct HDL Cholesterol Urine pH Urine WBC (Auto) Urine Creatinine Urine Total Protein Fluid Total Protein Vancomycin Trough Rheumatoid Factor Complement C4 Miscellaneous Test Crossmatch 12/01/16 12/01/16 12/02/16 17:40 23:41 05:00 WBC RBC Hgb Hct MCV MCH MCHC RDW Plt Count Lymph % (Auto) [place] % (Auto) Lymph # [place] # Baso # Seg Neutrophils % Seg Neuts % (Manual) Lymphocytes % (Manual) Monocytes % (Manual) Eosinophils % (Manual) Basophils % (Manual) Nucleated RBC % Seg Neutrophils # Seg Neutrophils # Man Lymphocytes # (Manual) Monocytes # (Manual) Eosinophils # (Manual) PT INR Fibrinogen dRVVT Confirm Interp Factor V Activity POC ABG pH POC ABG pCO2 POC ABG pO2 ABG pO2 ABG HCO3 ABG Base Excess ABG Hemoglobin Oxyhemoglobin Sodium Potassium Chloride Carbon Dioxide BUN 45 H Creatinine Glucose 115 H POC Glucose 140 H 144 H Lactic Acid Calcium Phosphorus Magnesium Direct Bilirubin AST ALT Alkaline Phosphatase Lactate Dehydrogenase Troponin T C-Reactive Protein Total Protein Albumin Prealbumin Triglycerides Cholesterol LDL Cholesterol Direct HDL Cholesterol Urine pH Urine WBC (Auto) Urine Creatinine Urine Total Protein Fluid Total Protein Vancomycin Trough Rheumatoid Factor Complement C4 Miscellaneous Test Crossmatch 12/02/16 12/02/16 12/02/16 05:31 11:20 17:38 WBC RBC Hgb Hct MCV MCH MCHC RDW Plt Count Lymph % (Auto) [place] % (Auto) Lymph # [place] # Baso # Seg Neutrophils % Seg Neuts % (Manual) Lymphocytes % (Manual) Monocytes % (Manual) Eosinophils % (Manual) Basophils % (Manual) Nucleated RBC % Seg Neutrophils # Seg Neutrophils # Man Lymphocytes # (Manual) Monocytes # (Manual) Eosinophils # (Manual) PT INR Fibrinogen dRVVT Confirm Interp Factor V Activity POC ABG pH POC ABG pCO2 POC ABG pO2 ABG pO2 ABG HCO3 ABG Base Excess ABG Hemoglobin Oxyhemoglobin Sodium Potassium Chloride Carbon Dioxide BUN Creatinine Glucose POC Glucose 136 H 177 H 139 H Lactic Acid Calcium Phosphorus Magnesium Direct Bilirubin AST ALT Alkaline Phosphatase Lactate Dehydrogenase Troponin T C-Reactive Protein Total Protein Albumin Prealbumin Triglycerides Cholesterol LDL Cholesterol Direct HDL Cholesterol Urine pH Urine WBC (Auto) Urine Creatinine Urine Total Protein Fluid Total Protein Vancomycin Trough Rheumatoid Factor Complement C4 Miscellaneous Test Crossmatch 12/02/16 12/03/16 12/03/16 23:43 04:00 04:00 WBC 20.4 H RBC 2.74 L Hgb 7.4 L Hct 23.6 L MCV MCH 27 L MCHC RDW 17.1 H Plt Count Lymph % (Auto) [place] % (Auto) Lymph # [place] # Baso # Seg Neutrophils % Seg Neuts % (Manual) 31.0 L Lymphocytes % (Manual) Monocytes % (Manual) Eosinophils % (Manual) Basophils % (Manual) Nucleated RBC % Seg Neutrophils # Seg Neutrophils # Man Lymphocytes # (Manual) Monocytes # (Manual) Eosinophils # (Manual) PT INR Fibrinogen dRVVT Confirm Interp Factor V Activity POC ABG pH POC ABG pCO2 POC ABG pO2 ABG pO2 ABG HCO3 ABG Base Excess ABG Hemoglobin Oxyhemoglobin Sodium Potassium Chloride Carbon Dioxide BUN 61 H Creatinine 1.6 H Glucose 119 H POC Glucose 158 H Lactic Acid Calcium Phosphorus Magnesium Direct Bilirubin AST ALT Alkaline Phosphatase Lactate Dehydrogenase Troponin T C-Reactive Protein Total Protein Albumin Prealbumin Triglycerides Cholesterol LDL Cholesterol Direct HDL Cholesterol Urine pH Urine WBC (Auto) Urine Creatinine Urine Total Protein Fluid Total Protein Vancomycin Trough Rheumatoid Factor Complement C4 Miscellaneous Test Crossmatch 12/03/16 12/03/16 12/03/16 05:02 12:11 18:16 WBC RBC Hgb Hct MCV MCH MCHC RDW Plt Count Lymph % (Auto) [place] % (Auto) Lymph # [place] # Baso # Seg Neutrophils % Seg Neuts % (Manual) Lymphocytes % (Manual) Monocytes % (Manual) Eosinophils % (Manual) Basophils % (Manual) Nucleated RBC % Seg Neutrophils # Seg Neutrophils # Man Lymphocytes # (Manual) Monocytes # (Manual) Eosinophils # (Manual) PT INR Fibrinogen dRVVT Confirm Interp Factor V Activity POC ABG pH POC ABG pCO2 POC ABG pO2 ABG pO2 ABG HCO3 ABG Base Excess ABG Hemoglobin Oxyhemoglobin Sodium Potassium Chloride Carbon Dioxide BUN Creatinine Glucose POC Glucose 146 H 157 H 124 H Lactic Acid Calcium Phosphorus Magnesium Direct Bilirubin AST ALT Alkaline Phosphatase Lactate Dehydrogenase Troponin T C-Reactive Protein Total Protein Albumin Prealbumin Triglycerides Cholesterol LDL Cholesterol Direct HDL Cholesterol Urine pH Urine WBC (Auto) Urine Creatinine Urine Total Protein Fluid Total Protein Vancomycin Trough Rheumatoid Factor Complement C4 Miscellaneous Test Crossmatch 12/03/16 12/04/16 12/04/16 23:41 04:00 04:45 WBC RBC Hgb Hct MCV MCH MCHC RDW Plt Count Lymph % (Auto) [place] % (Auto) Lymph # [place] # Baso # Seg Neutrophils % Seg Neuts % (Manual) Lymphocytes % (Manual) Monocytes % (Manual) Eosinophils % (Manual) Basophils % (Manual) Nucleated RBC % Seg Neutrophils # Seg Neutrophils # Man Lymphocytes # (Manual) Monocytes # (Manual) Eosinophils # (Manual) PT INR Fibrinogen dRVVT Confirm Interp Factor V Activity POC ABG pH POC ABG pCO2 POC ABG pO2 ABG pO2 ABG HCO3 ABG Base Excess ABG Hemoglobin Oxyhemoglobin Sodium Potassium Chloride Carbon Dioxide BUN 76 H Creatinine 1.6 H Glucose POC Glucose 130 H 136 H Lactic Acid Calcium Phosphorus Magnesium Direct Bilirubin AST ALT Alkaline Phosphatase 155 H Lactate Dehydrogenase Troponin T C-Reactive Protein Total Protein 5.5 L Albumin 1.5 L Prealbumin Triglycerides Cholesterol LDL Cholesterol Direct HDL Cholesterol Urine pH Urine WBC (Auto) Urine Creatinine Urine Total Protein Fluid Total Protein Vancomycin Trough Rheumatoid Factor Complement C4 Miscellaneous Test Crossmatch 12/04/16 12/04/16 12/05/16 12:08 17:23 00:10 WBC RBC Hgb Hct MCV MCH MCHC RDW Plt Count Lymph % (Auto) [place] % (Auto) Lymph # [place] # Baso # Seg Neutrophils % Seg Neuts % (Manual) Lymphocytes % (Manual) Monocytes % (Manual) Eosinophils % (Manual) Basophils % (Manual) Nucleated RBC % Seg Neutrophils # Seg Neutrophils # Man Lymphocytes # (Manual) Monocytes # (Manual) Eosinophils # (Manual) PT INR Fibrinogen dRVVT Confirm Interp Factor V Activity POC ABG pH POC ABG pCO2 POC ABG pO2 ABG pO2 ABG HCO3 ABG Base Excess ABG Hemoglobin Oxyhemoglobin Sodium Potassium Chloride Carbon Dioxide BUN Creatinine Glucose POC Glucose 114 H 129 H 124 H Lactic Acid Calcium Phosphorus Magnesium Direct Bilirubin AST ALT Alkaline Phosphatase Lactate Dehydrogenase Troponin T C-Reactive Protein Total Protein Albumin Prealbumin Triglycerides Cholesterol LDL Cholesterol Direct HDL Cholesterol Urine pH Urine WBC (Auto) Urine Creatinine Urine Total Protein Fluid Total Protein Vancomycin Trough Rheumatoid Factor Complement C4 Miscellaneous Test Crossmatch 12/05/16 12/05/16 12/05/16 05:00 05:00 05:18 WBC RBC Hgb Hct MCV MCH MCHC RDW Plt Count Lymph % (Auto) [place] % (Auto) Lymph # [place] # Baso # Seg Neutrophils % Seg Neuts % (Manual) Lymphocytes % (Manual) Monocytes % (Manual) Eosinophils % (Manual) Basophils % (Manual) Nucleated RBC % Seg Neutrophils # Seg Neutrophils # Man Lymphocytes # (Manual) Monocytes # (Manual) Eosinophils # (Manual) PT INR Fibrinogen dRVVT Confirm Interp Factor V Activity POC ABG pH POC ABG pCO2 POC ABG pO2 ABG pO2 ABG HCO3 ABG Base Excess ABG Hemoglobin Oxyhemoglobin Sodium Potassium Chloride Carbon Dioxide 21 L BUN 85 H Creatinine 1.9 H Glucose 131 H POC Glucose 154 H Lactic Acid Calcium Phosphorus Magnesium Direct Bilirubin AST ALT Alkaline Phosphatase Lactate Dehydrogenase Troponin T C-Reactive Protein 19.30 H Total Protein Albumin Prealbumin Triglycerides Cholesterol LDL Cholesterol Direct HDL Cholesterol Urine pH Urine WBC (Auto) Urine Creatinine Urine Total Protein Fluid Total Protein Vancomycin Trough Rheumatoid Factor Complement C4 Miscellaneous Test Crossmatch 12/05/16 12/05/16 12/05/16 11:43 17:46 23:25 WBC RBC Hgb Hct MCV MCH MCHC RDW Plt Count Lymph % (Auto) [place] % (Auto) Lymph # [place] # Baso # Seg Neutrophils % Seg Neuts % (Manual) Lymphocytes % (Manual) Monocytes % (Manual) Eosinophils % (Manual) Basophils % (Manual) Nucleated RBC % Seg Neutrophils # Seg Neutrophils # Man Lymphocytes # (Manual) Monocytes # (Manual) Eosinophils # (Manual) PT INR Fibrinogen dRVVT Confirm Interp Factor V Activity POC ABG pH POC ABG pCO2 POC ABG pO2 ABG pO2 ABG HCO3 ABG Base Excess ABG Hemoglobin Oxyhemoglobin Sodium Potassium Chloride Carbon Dioxide BUN Creatinine Glucose POC Glucose 117 H 113 H 111 H Lactic Acid Calcium Phosphorus Magnesium Direct Bilirubin AST ALT Alkaline Phosphatase Lactate Dehydrogenase Troponin T C-Reactive Protein Total Protein Albumin Prealbumin Triglycerides Cholesterol LDL Cholesterol Direct HDL Cholesterol Urine pH Urine WBC (Auto) Urine Creatinine Urine Total Protein Fluid Total Protein Vancomycin Trough Rheumatoid Factor Complement C4 Miscellaneous Test Crossmatch 12/05/16 12/06/16 12/06/16 Unknown 04:58 06:00 WBC RBC Hgb Hct MCV MCH MCHC RDW Plt Count Lymph % (Auto) [place] % (Auto) Lymph # [place] # Baso # Seg Neutrophils % Seg Neuts % (Manual) Lymphocytes % (Manual) Monocytes % (Manual) Eosinophils % (Manual) Basophils % (Manual) Nucleated RBC % Seg Neutrophils # Seg Neutrophils # Man Lymphocytes # (Manual) Monocytes # (Manual) Eosinophils # (Manual) PT INR Fibrinogen dRVVT Confirm Interp Factor V Activity POC ABG pH POC ABG pCO2 POC ABG pO2 ABG pO2 75.2 L ABG HCO3 ABG Base Excess -3.4 L ABG Hemoglobin 7.4 L Oxyhemoglobin 94.5 L Sodium Potassium Chloride Carbon Dioxide 20 L BUN 99 H Creatinine 2.1 H Glucose 126 H POC Glucose 145 H Lactic Acid Calcium Phosphorus 4.80 H Magnesium Direct Bilirubin AST ALT Alkaline Phosphatase Lactate Dehydrogenase Troponin T C-Reactive Protein Total Protein Albumin Prealbumin Triglycerides Cholesterol LDL Cholesterol Direct HDL Cholesterol Urine pH Urine WBC (Auto) Urine Creatinine Urine Total Protein Fluid Total Protein Vancomycin Trough Rheumatoid Factor Complement C4 Miscellaneous Test Crossmatch 12/06/16 06:46 WBC RBC Hgb 8.3 L Hct 26.4 L MCV MCH MCHC RDW Plt Count Lymph % (Auto) [place] % (Auto) Lymph # [place] # Baso # Seg Neutrophils % Seg Neuts % (Manual) Lymphocytes % (Manual) Monocytes % (Manual) Eosinophils % (Manual) Basophils % (Manual) Nucleated RBC % Seg Neutrophils # Seg Neutrophils # Man Lymphocytes # (Manual) Monocytes # (Manual) Eosinophils # (Manual) PT INR Fibrinogen dRVVT Confirm Interp Factor V Activity POC ABG pH POC ABG pCO2 POC ABG pO2 ABG pO2 ABG HCO3 ABG Base Excess ABG Hemoglobin Oxyhemoglobin Sodium Potassium Chloride Carbon Dioxide BUN Creatinine Glucose POC Glucose Lactic Acid Calcium Phosphorus Magnesium Direct Bilirubin AST ALT Alkaline Phosphatase Lactate Dehydrogenase Troponin T C-Reactive Protein Total Protein Albumin Prealbumin Triglycerides Cholesterol LDL Cholesterol Direct HDL Cholesterol Urine pH Urine WBC (Auto) Urine Creatinine Urine Total Protein Fluid Total Protein Vancomycin Trough Rheumatoid Factor Complement C4 Miscellaneous Test Crossmatch Chest x-ray: image reviewed (no focal infiltrates; improved right pleural effusion with persistent left small effusion) Allied health notes reviewed: RT
[2016-12-06] MEDS: PROTONIX FEEDTUBE SCH (10:09)
[2016-12-06] MEDS: HEPARIN SUB-Q SCH ×2 (10:09→21:45)
[2016-12-06] MEDS: NORVASC PO SCH (10:09)
--- NOTE | 2016-12-06 11:33 | Progress Note ---
Assessment and Plan Assessment and plan: Patient is 46-year-old woman with a history of hypertension, diabetes, asthma, hyperlipidemia, chronic kidney disease and anxiety , who was brought in by family because, she couldn't get her words out, her face was also twisted, she was admitted for acute CVA and accelerated hypertension, she had a hx of poor adherence with her medications, and uncontrolled htn. Patient's SBP on admission was noted be greater than 260. TPA was started but this was discontinued after 5 minutes because her blood pressure became uncontrolled. The TPA was not initiated again because the patient was outside the TPA window. Patient has had a prolonged hospital stay complicated with recurrent severe sepsis. Patient with most recent event also status post cardiac arrest on and received CPR. --Severe Sepsis with septic shock, recurrent. Patient with multiple episodes of sepsis. Initial episode due to presumed aspiration pneumonia and septic episode on 09/23 from candidemia then a third episode from peritonitis from gastric perforation from dislodged PEG +/-UTI. Patient was also noted to have had Candidemia with Blood cultures positive for Silvia albicans 09/23, 09/25 but negative on 09/30. Antibiotic discontinued on 12/05 per ID. patient is s/p R thoracentesis on 11/14, 240cc of serous fluid removed, cx of fluid was negative.also Stool negative for C. difficile --Surgical wound infection/gram-negative sepsis/candidemia/peritonitis. PEG has been removed and pus is drained from the PEG site and patient is Currently on tube feeding. Continue wound care to ostomy sites --Acute hypoxic respiratory failure, status post tracheostomy Pulmonary following --Acute massive CVA with mass effect; continue antiplatelets and statins -Neurology input appreciated CT shows continued evolution of left MCA infarct with slight mass effect and edema, and there is no hemorrhage -PRINCE showed hyperdynamic with ef of 75%, neither clot nor septal defect seen -MRA Brain shows near complete occlusion of M2 and M3 of the left MCA Repeat CT scan done on 09/11, shows stable findings carotid doppler negative -Echo shows preserved systolic function but does show some left ventricular diastolic dysfunction -continue asa and statin --Oliguric acute kidney injury. Etiology secondary to ATN on CKD. Baseline creatinine is approximately 1.7. --Paroxysmal atrial fibrillation with rapid ventricular rate, failed cardioversion Continue current medications, Not a candidate for anticoagulation secondary to anemia thrombocytopenia and massive CVA --Anemia; probably secondary to GI bleeding Patient received multiple units of PRBC in the past, H&H has remained stable. re-consult GI if needed If patient has significant vaginal bleeding Consult [employer] as needed -Toxic metabolic encephalopathy; supportive care --Diabetes mellitus type 2, Insulin/SSI --Severe protein caloric malnutrition, cont TPN --s/p Thrombocytopenia. Now resolved --DVT prophylaxis, SCDs, no pharmacological agent given anemia , thrombocytopenia, massive stroke --Full code status, very poor prognosis Dispo. Very poor prognosis. Have been explained by the hospitalist group and the typewriter ribbon winder about the poor prognosis of the patient but the family said she may make it and refused hospice evaluation. The high probability of a clinically significant, sudden or life threatening deterioration of the [respiratory, GI, immunological and cardiovascular] system( s) required my full and direct attention, intervention and personal management. The aggregate critical care time was [31] minutes. This time is in addition to time spent performing reported procedures but includes the following: [x] Data Review and interpretation [x] Patient assessment and monitoring of vital signs [x] Documentation [x] Medication orders and management History Interval history: No new issues overnight. Hospitalist Physical - Constitutional Vitals: Temp Pulse Resp BP Pulse Ox 99.5 F 102 H 16 94/48 100 12/06/16 08:00 12/06/16 10:09 12/06/16 09:15 12/06/16 10:09 12/06/16 09:04 General appearance: Present: no acute distress - EENT Eyes: Present: PERRL ENT: hearing intact, clear oral mucosa - Neck Neck: Present: supple, normal ROM - Respiratory Respiratory effort: normal Respiratory: bilateral: diminished, rhonchi - Cardiovascular Rhythm: regular Heart Sounds: Present: S1 & S2. Absent: gallop, rub - Extremities Extremities: no ischemia, No edema, Full ROM - Abdominal General gastrointestinal: soft, non-tender, non-distended, normal bowel sounds - Integumentary Integumentary: Present: clear, warm, dry - Neurologic Neurologic: CNII-XII intact, moves all extremities Results - Labs CBC & Chem 7: 12/06/16 06:46 12/06/16 06:00 Labs: Laboratory Last Values WBC 20.4 K/mm3 (4.5-11.0) H 12/03/16 04:00 RBC 2.74 M/mm3 (3.65-5.03) L 12/03/16 04:00 Hgb 8.3 gm/dl (10.1-14.3) L 12/06/16 06:46 Hct 26.4 % (30.3-42.9) L 12/06/16 06:46 MCV 86 fl (79-97) 12/03/16 04:00 MCH 27 pg (28-32) L 12/03/16 04:00 MCHC 31 % (30-34) 12/03/16 04:00 RDW 17.1 % (13.2-15.2) H 12/03/16 04:00 Plt Count 335 K/mm3 (140-440) 12/03/16 04:00 Lymph % (Auto) 19.6 % (13.4-35.0) 12/01/16 03:35 [place] % (Auto) 9.8 % (0.0-7.3) H 12/01/16 03:35 Eos % (Auto) 1.5 % (0.0-4.3) 12/01/16 03:35 Baso % (Auto) 0.3 % (0.0-1.8) 12/01/16 03:35 Lymph # 2.4 K/mm3 (1.2-5.4) 12/01/16 03:35 [place] # 1.2 K/mm3 (0.0-0.8) H 12/01/16 03:35 Eos # 0.2 K/mm3 (0.0-0.4) 12/01/16 03:35 Baso # 0.0 K/mm3 (0.0-0.1) 12/01/16 03:35 Add Manual Diff Complete 12/03/16 04:00 Total Counted 100 12/03/16 04:00 Seg Neutrophils % 68.8 % (40.0-70.0) 12/01/16 03:35 Seg Neuts % (Manual) 31.0 % (40.0-70.0) L 12/03/16 04:00 Band Neutrophils % 39.0 % 12/03/16 04:00 Lymphocytes % (Manual) 22.0 % (13.4-35.0) 12/03/16 04:00 Reactive Lymphs % (Man) 0 % 12/03/16 04:00 Monocytes % (Manual) 3.0 % (0.0-7.3) 12/03/16 04:00 Eosinophils % (Manual) 1.0 % (0.0-4.3) 12/03/16 04:00 Basophils % (Manual) 0 % (0.0-1.8) 12/03/16 04:00 Metamyelocytes % 4.0 % 12/03/16 04:00 Myelocytes % 0 % 12/03/16 04:00 Promyelocytes % 0 % 12/03/16 04:00 Blast Cells % 0 % 12/03/16 04:00 Nucleated RBC % Not Reportable 12/03/16 04:00 Seg Neutrophils # 8.4 K/mm3 (1.8-7.7) H 12/01/16 03:35 Seg Neutrophils # Man 6.3 K/mm3 (1.8-7.7) 12/03/16 04:00 Band Neutrophils # 8.0 K/mm3 12/03/16 04:00 Lymphocytes # (Manual) 4.5 K/mm3 (1.2-5.4) 12/03/16 04:00 Abs React Lymphs (Man) 0.0 K/mm3 12/03/16 04:00 Monocytes # (Manual) 0.6 K/mm3 (0.0-0.8) 12/03/16 04:00 Eosinophils # (Manual) 0.2 K/mm3 (0.0-0.4) 12/03/16 04:00 Basophils # (Manual) 0.0 K/mm3 (0.0-0.1) 12/03/16 04:00 Metamyelocytes # 0.8 K/mm3 12/03/16 04:00 Myelocytes # 0.0 K/mm3 12/03/16 04:00 Promyelocytes # 0.0 K/mm3 12/03/16 04:00 Blast Cells # 0.0 K/mm3 12/03/16 04:00 Pathologist Review 09/13/16 04:00 WBC Morphology Not Reportable 12/03/16 04:00 Hypersegmented Neuts Not Reportable 12/03/16 04:00 Hyposegmented Neuts Not Reportable 12/03/16 04:00 Hypogranular Neuts Not Reportable 12/03/16 04:00 Smudge Cells Not Reportable 12/03/16 04:00 Toxic Granulation Not Reportable 12/03/16 04:00 Toxic Vacuolation Not Reportable 12/03/16 04:00 Dohle Bodies Rare 12/03/16 04:00 Pelger-Huet Anomaly Not Reportable 12/03/16 04:00 Jasmina Rods Not Reportable 12/03/16 04:00 Platelet Estimate Appears normal 12/03/16 04:00 Clumped Platelets Not Reportable 12/03/16 04:00 Plt Clumps, EDTA Not Reportable 12/03/16 04:00 Large Platelets Not Reportable 12/03/16 04:00 Giant Platelets Not Reportable 12/03/16 04:00 Platelet Satelliting Not Reportable 12/03/16 04:00 Plt Morphology Comment Not Reportable 12/03/16 04:00 RBC Morphology Not Reportable 12/03/16 04:00 Dimorphic RBCs Not Reportable 12/03/16 04:00 Polychromasia Few 12/03/16 04:00 Hypochromasia 1+ 12/03/16 04:00 Poikilocytosis Not Reportable 12/03/16 04:00 Anisocytosis 1+ 12/03/16 04:00 Microcytosis Not Reportable 12/03/16 04:00 Macrocytosis Not Reportable 12/03/16 04:00 Spherocytes Not Reportable 12/03/16 04:00 Pappenheimer Bodies Not Reportable 12/03/16 04:00 Sickle Cells Not Reportable 12/03/16 04:00 Target Cells Rare 12/03/16 04:00 Tear Drop Cells Not Reportable 12/03/16 04:00 Ovalocytes Not Reportable 12/03/16 04:00 Stomatocytes Rare 12/03/16 04:00 Helmet Cells Not Reportable 12/03/16 04:00 Monet-Friant Bodies Not Reportable 12/03/16 04:00 [place] Rings Not Reportable 12/03/16 04:00 Chuck Cells Not Reportable 12/03/16 04:00 Bite Cells Not Reportable 12/03/16 04:00 Crenated Cell Not Reportable 12/03/16 04:00 Elliptocytes Not Reportable 12/03/16 04:00 Acanthocytes (Spur) Not Reportable 12/03/16 04:00 Rouleaux Not Reportable 12/03/16 04:00 Hemoglobin C Crystals Not Reportable 12/03/16 04:00 Schistocytes Not Reportable 12/03/16 04:00 Malaria parasites Not Reportable 12/03/16 04:00 ESR > 140.0 mm/Hr (0-20) 09/08/16 11:48 Jun Bodies Not Reportable 12/03/16 04:00 Hem Pathologist Commnt No 12/03/16 04:00 PT 16.8 Sec. (12.2-14.9) H 11/17/16 03:20 INR 1.37 (0.87-1.13) H 11/17/16 03:20 APTT 33.0 Sec. (24.2-36.6) 10/09/16 03:45 Thrombin Time 16.8 Sec. (15.1-19.6) 09/03/16 00:10 Fibrinogen 750 mg/dl (211-480) H 09/08/16 11:48 Lupus Anticoagulant see below 09/12/16 09:59 LA PTT Baseline See scanned report 09/12/16 09:59 dRVVT Confirm Interp Positive (Negative) H 09/12/16 09:59 dRVVT Screen 50:50 See scanned report 09/12/16 09:59 dRVVT Mix Interpret See scanned report 09/12/16 09:59 Protein C Antigen 122 % (70-140) 09/08/16 15:35 Free Protein S 97 % normal (50-147) 09/08/16 15:35 Total Protein S 109 % (70-140) 09/08/16 15:35 Antithrombin III Ag 100 % (80-120) 09/08/16 15:35 Heparin Anti-Xa, Unfract Negative (Negative) 09/29/16 13:35 Factor V Activity 182 % (65-150) H 09/08/16 15:35 POC ABG pH 7.487 (7.35-7.45) H 11/25/16 14:12 ABG pH 7.450 pH Units (7.350-7.450) 12/05/16 Unknown POC ABG pCO2 39.0 (35-45) 11/25/16 14:12 ABG pCO2 29.6 mm Hg 12/05/16 Unknown POC ABG pO2 153 (80-105) H 11/25/16 14:12 ABG pO2 75.2 mm Hg (80.0-90.0) L 12/05/16 Unknown POC ABG HCO3 29.5 11/25/16 14:12 ABG HCO3 20.1 mmol/L (20.0-26.0) 12/05/16 Unknown POC ABG Total CO2 31 11/25/16 14:12 POC ABG O2 Sat 99 11/25/16 14:12 ABG O2 Saturation 96.8 % (95.0-99.0) 12/05/16 Unknown ABG O2 Content 9.9 (0.0-44) 12/05/16 Unknown POC ABG Base Excess 6 11/25/16 14:12 ABG Base Excess -3.4 mmol/L (-2.0-3.0) L 12/05/16 Unknown ABG Hemoglobin 7.4 gm/dl (12.0-16.0) L 12/05/16 Unknown ABG Carboxyhemoglobin 1.8 % (0.0-5.0) 12/05/16 Unknown ABG Methemoglobin 0.6 % (0.0-1.5) 12/05/16 Unknown Oxyhemoglobin 94.5 % (95.0-99.0) L 12/05/16 Unknown FiO2 30 % 12/05/16 Unknown Sodium 140 mmol/L (137-145) 12/06/16 06:00 Potassium 3.8 mmol/L (3.6-5.0) 12/06/16 06:00 Chloride 101.1 mmol/L (98-107) 12/06/16 06:00 Carbon Dioxide 20 mmol/L (22-30) L 12/06/16 06:00 Anion Gap 23 mmol/L 12/06/16 06:00 BUN 99 mg/dL (7-17) H 12/06/16 06:00 Creatinine 2.1 mg/dL (0.7-1.2) H 12/06/16 06:00 Estimated GFR 31 ml/min 12/06/16 06:00 BUN/Creatinine Ratio 47 % 12/06/16 06:00 Glucose 126 mg/dL (65-100) H 12/06/16 06:00 POC Glucose 145 (70-105) H 12/06/16 04:58 Osmolality 351 Mosm/kg 09/16/16 11:47 Lactic Acid 4.50 mmol/L (0.7-2.0) H* 09/28/16 07:25 Calcium 9.1 mg/dL (8.4-10.2) 12/06/16 06:00 Phosphorus 4.80 mg/dL (2.5-4.5) H 12/06/16 06:00 Magnesium 1.80 mg/dL (1.7-2.3) 12/05/16 05:00 Total Bilirubin 0.20 mg/dL (0.1-1.2) 12/04/16 04:00 Direct Bilirubin 0.3 mg/dL (0-0.2) H 10/10/16 05:00 Indirect Bilirubin 0.1 mg/dL 10/10/16 05:00 AST 29 units/L (5-40) 12/04/16 04:00 ALT 43 units/L (7-56) 12/04/16 04:00 Alkaline Phosphatase 155 units/L (35-129) H 12/04/16 04:00 Ammonia 27.0 umol/L (25-60) 09/07/16 08:37 Lactate Dehydrogenase 196 units/L (91-180) H 11/11/16 06:59 Total Creatine Kinase 121 units/L (30-135) 09/29/16 20:12 CK-MB (CK-2) < 1.0 ng/mL (0.0-4.0) 09/29/16 20:12 CK-MB (CK-2) Rel Index 0.8 (0-4) 09/29/16 20:12 Troponin T 0.204 ng/mL (0.00-0.029) H* 09/29/16 20:12 C-Reactive Protein 19.30 mg/dL (0.00-1.30) H 12/05/16 05:00 Total Protein 5.5 g/dL (6.3-8.2) L 12/04/16 04:00 Albumin 1.5 g/dL (3.9-5) L 12/04/16 04:00 Albumin/Globulin Ratio 0.4 % 12/04/16 04:00 Prealbumin 0.180 g/L (0.200-0.400) L 11/06/16 06:25 Triglycerides 137 mg/dL (2-149) 09/29/16 20:12 Cholesterol 31 mg/dL (50-199) L 09/29/16 20:12 LDL Cholesterol Direct 4 mg/dL (50-130) L 09/29/16 20:12 HDL Cholesterol 3 mg/dL (40-59) L 09/29/16 20:12 Cholesterol/HDL Ratio 10.33 % 09/29/16 20:12 Angiotensin Convert Enz See scanned report 09/08/16 11:48 Renin 0.99 ng/mL/h (0.25-5.82) 10/07/16 10:56 Aldosterone <1 ng/dL () 10/07/16 10:56 Aldosterone/Renin Dir see below 10/07/16 10:56 Serotonin Release Assay See scanned report 09/29/16 13:35 TSH 1.010 mlU/mL (0.270-4.200) 09/07/16 08:37 HCG, Qual Negative (Negative) 09/03/16 00:10 Urine Color Yellow (Yellow) 11/05/16 13:09 Urine Turbidity Clear (Clear) 11/05/16 13:09 Urine pH 9.0 (5.0-7.0) H 11/05/16 13:09 Ur Specific [place] 1.011 (1.003-1.030) 11/05/16 13:09 Urine Protein 100 mg/dl mg/dL (Negative) 11/05/16 13:09 Urine Glucose (UA) Neg mg/dL (Negative) 11/05/16 13:09 Urine Ketones Neg mg/dL (Negative) 11/05/16 13:09 Urine Blood Neg (Negative) 11/05/16 13:09 Urine Nitrite Neg (Negative) 11/05/16 13:09 Urine Bilirubin Neg (Negative) 11/05/16 13:09 Urine Urobilinogen < 2.0 mg/dL (<2.0) 11/05/16 13:09 Ur Leukocyte Esterase Neg (Negative) 11/05/16 13:09 Urine WBC (Auto) 4.0 /HPF (0.0-6.0) 11/05/16 13:09 Urine RBC (Auto) 1.0 /HPF (0.0-6.0) 11/05/16 13:09 U Epithel Cells (Auto) 1.0 /HPF (0-13.0) 10/07/16 18:30 Urine Bacteria (Auto) 4+ /HPF (Negative) 11/05/16 13:09 Urine WBC Clumps 2+ /HPF 09/07/16 02:47 Hyaline Casts 4 /LPF 09/07/16 02:47 Urine Mucus Few /HPF 10/07/16 18:30 Urine Yeast (Budding) 3+ /HPF 10/07/16 18:30 Urine Eosinophils None seen (None Seen) 09/07/16 16:00 Urine Total Volume 950 11/12/16 10:18 Urine Creatinine 19.7 mg/dL (0.1-20.0) 11/12/16 10:18 Height (in) 65.0 inches 11/12/16 10:18 Weight (lb) 181.0 lbs 11/12/16 10:18 Creatinine Clearance 5 11/12/16 10:18 Urine Sodium 36 mEq/L 09/16/16 19:19 Urine Total Protein 16 mg/dL (5-11.8) H 09/16/16 19:19 Fluid Total Protein < 3.0 (15.0-45.0) L 11/10/16 14:20 Fluid LDH 123 11/10/16 14:20 Vancomycin Trough 2.3 ug/mL (5.0-20.0) L 09/21/16 13:00 Random Vancomycin 16.5 ug/mL (0-40.0) 11/28/16 09:45 Urine Opiates Screen Presumptive negative 09/03/16 15:11 Urine Methadone Screen Presumptive positive 09/03/16 15:11 Ur Barbiturates Screen Presumptive positive 09/03/16 15:11 Ur Phencyclidine Scrn Presumptive negative 09/03/16 15:11 Ur Amphetamines Screen Presumptive negative 09/03/16 15:11 U Benzodiazepines Scrn Presumptive negative 09/03/16 15:11 Urine Cocaine Screen Presumptive negative 09/03/16 15:11 U Marijuana (THC) Screen Presumptive positive 09/03/16 15:11 Drugs of Abuse Note Disclamer 09/03/16 15:11 Rheumatoid Factor 24 IU/ml (0-13) H 09/08/16 11:48 SAHIL Screen Negative (Negative) 09/07/16 09:20 Proteinase 3 (PR3) Ab <1.0 AI (<1.0) 09/07/16 09:20 Myeloperoxidase Ab <1.0 AI (<1.0) 09/07/16 09:20 Sjogren's Antibody <1.0 AI (<1.0) 09/08/16 15:35 Scl-70 Scleroderma Ab <1.0 AI (<1.0) 09/08/16 15:35 Centromere B Antibody <1.0 AI (<1.0) 09/08/16 12:02 Heparin-induced Plt Ab Negative (Negative) 09/29/16 13:35 UF Heparin High Dose 11 % Release 09/29/16 13:35 SUDHIR UFH Low Dose 0.1 6 % Release 09/29/16 13:35 SUDHIR UFH Low Dose 0.5 8 % Release 09/29/16 13:35 Cardiolipid IgG Ab <14 GPL (<=14) 09/12/16 09:59 Cardiolipid IgA Ab <11 APL (<=11) 09/12/16 09:59 Cardiolipid IgM Ab <12 MPL (<=12) 09/12/16 09:59 Complement C3 148 mg/dL (90-180) 09/07/16 09:20 Complement C4 58 mg/dL (16-47) H 09/07/16 09:20 RPR Nonreactive (Nonreactive) 09/08/16 11:48 Hepatitis A IgM Ab Non-reactive (NonReactive) 09/24/16 14:40 Hep Bs Antigen Non-reactive (Negative) 09/24/16 14:40 Hep B Core IgM Ab Non-reactive (NonReactive) 09/24/16 14:40 Hepatitis C Antibody Non-reactive (NonReactive) 09/24/16 14:40 HIV 1&2 Antibody Rapid Non react (Non React) 09/08/16 11:48 HIV P24 Antigen Non react (Non React) 09/08/16 11:48 Miscellaneous Test Flexitest 1 H 11/05/16 13:25 Blood Type A POSITIVE 11/24/16 11:20 Antibody Screen TNR 11/24/16 11:20 DELORIS Antibody Screen Negative 11/24/16 11:20 Crossmatch See Detail 11/24/16 11:20
--- NOTE | 2016-12-06 15:03 | Progress Note ---
Assessment and Plan - Patient Problems (1) Dislodged gastrostomy tube Current Visit: Yes Status: Acute Plan to address problem: The pt is in a persistent vegatative state and overall prognosis is poor. The drainage does not appear to be enteric in nature and is likely related to prolonged spillage of gastric content prior to repair. No plan for any further surgical tx at this time. Continue supportive care. Will sign off. Would not recommend replacment of G tube given drainage. Continue TPN. Subjective Date of service: 12/06/16 Patient Reports: Positive: afebrile, other (no acute events overnight. Continues to have thick drainage from the abdomen wall incisions.) Objective Vital Signs - 12hr 12/06/16 12/06/16 12/06/16 03:00 03:30 03:49 Temperature 99.4 F Pulse Rate 106 H 108 H Pulse Rate [ Bilateral Throughout] Pulse Rate [ From Monitor] Respiratory 24 18 Rate Respiratory Rate [Bilateral Throughout] Blood Pressure 118/73 126/73 O2 Sat by Pulse 99 99 Oximetry O2 Sat by Pulse Oximetry [ Assessment] 12/06/16 12/06/16 12/06/16 04:00 04:30 04:32 Temperature Pulse Rate 105 H 105 H 107 H Pulse Rate [ Bilateral Throughout] Pulse Rate [ From Monitor] Respiratory 18 19 Rate Respiratory Rate [Bilateral Throughout] Blood Pressure 117/64 110/64 117/63 O2 Sat by Pulse 100 100 99 Oximetry O2 Sat by Pulse Oximetry [ Assessment] 12/06/16 12/06/16 12/06/16 04:45 05:00 05:30 Temperature Pulse Rate 94 H 105 H 104 H Pulse Rate [ Bilateral Throughout] Pulse Rate [ From Monitor] Respiratory 18 21 Rate Respiratory Rate [Bilateral Throughout] Blood Pressure 110/59 102/58 O2 Sat by Pulse 97 100 100 Oximetry O2 Sat by Pulse Oximetry [ Assessment] 12/06/16 12/06/16 12/06/16 06:00 06:30 06:36 Temperature Pulse Rate 106 H 103 H 103 H Pulse Rate [ Bilateral Throughout] Pulse Rate [ From Monitor] Respiratory 20 18 Rate Respiratory Rate [Bilateral Throughout] Blood Pressure 110/60 110/60 110/60 O2 Sat by Pulse 100 100 Oximetry O2 Sat by Pulse Oximetry [ Assessment] 12/06/16 12/06/16 12/06/16 06:42 07:00 07:30 Temperature Pulse Rate 103 H 105 H 94 H Pulse Rate [ Bilateral Throughout] Pulse Rate [ From Monitor] Respiratory 18 17 Rate Respiratory Rate [Bilateral Throughout] Blood Pressure 110/60 110/60 88/54 O2 Sat by Pulse 100 100 Oximetry O2 Sat by Pulse Oximetry [ Assessment] 12/06/16 12/06/16 12/06/16 08:00 08:30 09:00 Temperature 99.5 F Pulse Rate 93 H 94 H 95 H Pulse Rate [ Bilateral Throughout] Pulse Rate [ 128 H From Monitor] Respiratory 18 18 19 Rate Respiratory Rate [Bilateral Throughout] Blood Pressure 104/56 104/56 94/48 O2 Sat by Pulse 100 100 100 Oximetry O2 Sat by Pulse Oximetry [ Assessment] 12/06/16 12/06/16 12/06/16 09:04 09:07 09:15 Temperature Pulse Rate 94 H Pulse Rate [ 95 H 99 H Bilateral Throughout] Pulse Rate [ From Monitor] Respiratory 29 H Rate Respiratory 30 H 16 Rate [Bilateral Throughout] Blood Pressure 94/48 O2 Sat by Pulse 100 Oximetry O2 Sat by Pulse Oximetry [ Assessment] 12/06/16 12/06/16 12/06/16 09:30 10:00 10:09 Temperature Pulse Rate 98 H 102 H 102 H Pulse Rate [ Bilateral Throughout] Pulse Rate [ From Monitor] Respiratory 25 H 20 Rate Respiratory Rate [Bilateral Throughout] Blood Pressure 94/48 94/48 94/48 O2 Sat by Pulse 100 95 Oximetry O2 Sat by Pulse Oximetry [ Assessment] 12/06/16 12/06/16 12/06/16 10:30 11:00 11:30 Temperature Pulse Rate 101 H 101 H 108 H Pulse Rate [ Bilateral Throughout] Pulse Rate [ From Monitor] Respiratory 18 18 17 Rate Respiratory Rate [Bilateral Throughout] Blood Pressure 105/56 105/56 105/56 O2 Sat by Pulse 96 97 99 Oximetry O2 Sat by Pulse Oximetry [ Assessment] 12/06/16 12/06/16 12/06/16 12:00 12:34 12:36 Temperature 98.7 F Pulse Rate 103 H 105 H Pulse Rate [ Bilateral Throughout] Pulse Rate [ 106 H From Monitor] Respiratory 19 Rate Respiratory Rate [Bilateral Throughout] Blood Pressure 115/68 115/68 O2 Sat by Pulse 98 99 Oximetry O2 Sat by Pulse 99 Oximetry [ Assessment] 12/06/16 12/06/16 12/06/16 13:00 13:24 13:35 Temperature Pulse Rate 105 H Pulse Rate [ 108 H 106 H Bilateral Throughout] Pulse Rate [ From Monitor] Respiratory Rate Respiratory 18 12 Rate [Bilateral Throughout] Blood Pressure 134/75 O2 Sat by Pulse Oximetry O2 Sat by Pulse Oximetry [ Assessment] - General physical appearance no distress - Neck trachea midline - Respiratory normal respiratory effort - Abdomen soft, not tender, other (thick yellow drainage ) - Neurologic other (unresponsive to verbal stim) - Psychiatric other - Labs 12/06/16 06:46 12/06/16 06:00 Diabetes panel 12/06/16 Range/Units 06:00 Sodium 140 (137-145) mmol/L Potassium 3.8 (3.6-5.0) mmol/L Chloride 101.1 (98-107) mmol/L Carbon Dioxide 20 L (22-30) mmol/L BUN 99 H (7-17) mg/dL Creatinine 2.1 H (0.7-1.2) mg/dL Glucose 126 H (65-100) mg/dL Calcium 9.1 (8.4-10.2) mg/dL Calcium panel 12/06/16 Range/Units 06:00 Calcium 9.1 (8.4-10.2) mg/dL Phosphorus 4.80 H (2.5-4.5) mg/dL Pituitary panel 12/06/16 Range/Units 06:00 Sodium 140 (137-145) mmol/L Potassium 3.8 (3.6-5.0) mmol/L Chloride 101.1 (98-107) mmol/L Carbon Dioxide 20 L (22-30) mmol/L BUN 99 H (7-17) mg/dL Creatinine 2.1 H (0.7-1.2) mg/dL Glucose 126 H (65-100) mg/dL Calcium 9.1 (8.4-10.2) mg/dL Adrenal panel 12/06/16 Range/Units 06:00 Sodium 140 (137-145) mmol/L Potassium 3.8 (3.6-5.0) mmol/L Chloride 101.1 (98-107) mmol/L Carbon Dioxide 20 L (22-30) mmol/L BUN 99 H (7-17) mg/dL Creatinine 2.1 H (0.7-1.2) mg/dL Glucose 126 H (65-100) mg/dL Calcium 9.1 (8.4-10.2) mg/dL
--- NOTE | 2016-12-06 15:56 | Progress Note ---
Subjective Principal diagnosis: Acute resp failure on MVS; S/P Acute CVA; Acute Encephalopathy; JUANITA Interval history: Patient was seen today for follow-up on multiple renal related issues she is currently receiving dialysis discussed with lower dialysis nurse case was discussed with lower dialysis nurse Events of 24 hours were reviewed Vitals labs intake and output medications were reviewed from today Allergies: Reviewed Social history: Reviewed Family history: Reviewed Physical examination HEENT: Oral mucosa moist Neck: Supple no JVD Chest: Clear to auscultation no crackles rales or wheezes Heart: Regular rate and rhythm S1-S2 heard no S3-S4 Abdomen: Soft nontender no renal bruit no CVA tenderness no suprapubic fullness Extremity: Mild edema dry skin no peripheral cyanosis pulses palpable neurological: Unchanged Musculoskeletal: No joint effusion noted Assessment and plan Acute on chronic renal failure: Patient is currently dialysis dependent Monday and Monday; discussed with dialysis nurse current dialysis access has been working well patient seems to be tolerating treatment well Monitor for any recovery of renal function Electrolytes disturbance is currently stable Secondary hypertension/renovascular hypertension; needs close monitoring and follow-up Secondary hyperparathyroidism: Phosphorus 4.89 admission 1.8 less than 1 g proteinuria History of recent stroke try to avoid erythropoietin in my opinion patient may require packed red blood cell transfusion History of labile uncontrolled hypertension Chronic kidney disease underlying Mild metabolic acidosis to follow Prognosis guarded to poor/persistent vegetative state Objective - Vital Signs Vital signs: Vital Signs - 12hr 12/06/16 12/06/16 12/06/16 04:00 04:30 04:32 Temperature Pulse Rate 105 H 105 H 107 H Pulse Rate [ Bilateral Throughout] Pulse Rate [ From Monitor] Respiratory 18 19 Rate Respiratory Rate [Bilateral Throughout] Blood Pressure 117/64 110/64 117/63 O2 Sat by Pulse 100 100 99 Oximetry O2 Sat by Pulse Oximetry [ Assessment] 12/06/16 12/06/16 12/06/16 04:45 05:00 05:30 Temperature Pulse Rate 94 H 105 H 104 H Pulse Rate [ Bilateral Throughout] Pulse Rate [ From Monitor] Respiratory 18 21 Rate Respiratory Rate [Bilateral Throughout] Blood Pressure 110/59 102/58 O2 Sat by Pulse 97 100 100 Oximetry O2 Sat by Pulse Oximetry [ Assessment] 12/06/16 12/06/16 12/06/16 06:00 06:30 06:36 Temperature Pulse Rate 106 H 103 H 103 H Pulse Rate [ Bilateral Throughout] Pulse Rate [ From Monitor] Respiratory 20 18 Rate Respiratory Rate [Bilateral Throughout] Blood Pressure 110/60 110/60 110/60 O2 Sat by Pulse 100 100 Oximetry O2 Sat by Pulse Oximetry [ Assessment] 12/06/16 12/06/16 12/06/16 06:42 07:00 07:30 Temperature Pulse Rate 103 H 105 H 94 H Pulse Rate [ Bilateral Throughout] Pulse Rate [ From Monitor] Respiratory 18 17 Rate Respiratory Rate [Bilateral Throughout] Blood Pressure 110/60 110/60 88/54 O2 Sat by Pulse 100 100 Oximetry O2 Sat by Pulse Oximetry [ Assessment] 12/06/16 12/06/16 12/06/16 08:00 08:30 09:00 Temperature 99.5 F Pulse Rate 93 H 94 H 95 H Pulse Rate [ Bilateral Throughout] Pulse Rate [ 128 H From Monitor] Respiratory 18 18 19 Rate Respiratory Rate [Bilateral Throughout] Blood Pressure 104/56 104/56 94/48 O2 Sat by Pulse 100 100 100 Oximetry O2 Sat by Pulse Oximetry [ Assessment] 12/06/16 12/06/16 12/06/16 09:04 09:07 09:15 Temperature Pulse Rate 94 H Pulse Rate [ 95 H 99 H Bilateral Throughout] Pulse Rate [ From Monitor] Respiratory 29 H Rate Respiratory 30 H 16 Rate [Bilateral Throughout] Blood Pressure 94/48 O2 Sat by Pulse 100 Oximetry O2 Sat by Pulse Oximetry [ Assessment] 12/06/16 12/06/16 12/06/16 09:30 10:00 10:09 Temperature Pulse Rate 98 H 102 H 102 H Pulse Rate [ Bilateral Throughout] Pulse Rate [ From Monitor] Respiratory 25 H 20 Rate Respiratory Rate [Bilateral Throughout] Blood Pressure 94/48 94/48 94/48 O2 Sat by Pulse 100 95 Oximetry O2 Sat by Pulse Oximetry [ Assessment] 12/06/16 12/06/16 12/06/16 10:30 11:00 11:30 Temperature Pulse Rate 101 H 101 H 108 H Pulse Rate [ Bilateral Throughout] Pulse Rate [ From Monitor] Respiratory 18 18 17 Rate Respiratory Rate [Bilateral Throughout] Blood Pressure 105/56 105/56 105/56 O2 Sat by Pulse 96 97 99 Oximetry O2 Sat by Pulse Oximetry [ Assessment] 12/06/16 12/06/16 12/06/16 12:00 12:34 12:36 Temperature 98.7 F Pulse Rate 103 H 105 H Pulse Rate [ Bilateral Throughout] Pulse Rate [ 106 H From Monitor] Respiratory 19 Rate Respiratory Rate [Bilateral Throughout] Blood Pressure 115/68 115/68 O2 Sat by Pulse 98 99 Oximetry O2 Sat by Pulse 99 Oximetry [ Assessment] 12/06/16 12/06/16 12/06/16 13:00 13:24 13:35 Temperature Pulse Rate 105 H Pulse Rate [ 108 H 106 H Bilateral Throughout] Pulse Rate [ From Monitor] Respiratory Rate Respiratory 18 12 Rate [Bilateral Throughout] Blood Pressure 134/75 O2 Sat by Pulse Oximetry O2 Sat by Pulse Oximetry [ Assessment] - Lab 12/06/16 06:46 12/06/16 06:00 Most recent lab results ABG pH 7.450 pH Units (7.350-7.450) 12/05/16 Unknown ABG pCO2 29.6 mm Hg 12/05/16 Unknown ABG pO2 75.2 mm Hg (80.0-90.0) L 12/05/16 Unknown ABG HCO3 20.1 mmol/L (20.0-26.0) 12/05/16 Unknown ABG O2 Saturation 96.8 % (95.0-99.0) 12/05/16 Unknown Calcium 9.1 mg/dL (8.4-10.2) 12/06/16 06:00 Phosphorus 4.80 mg/dL (2.5-4.5) H 12/06/16 06:00 Magnesium 1.80 mg/dL (1.7-2.3) 12/05/16 05:00 Urine Creatinine 19.7 mg/dL (0.1-20.0) 11/12/16 10:18 Urine Sodium 36 mEq/L 09/16/16 19:19 Urine Total Protein 16 mg/dL (5-11.8) H 09/16/16 19:19
[2016-12-06] MEDS ORDERED: NACL 0.9% 1000 ML 2,000 ML ONE (18:18)
[2016-12-06] MEDS: HEPARIN IV PRN (18:55)
[2016-12-06] MEDS ORDERED: TPN ADULT IV SCH (20:00)
[2016-12-07] MEDS: TYLENOL FEEDTUBE PRN (00:27)
[2016-12-07] MEDS: LOPRESSOR PO SCH ×5 (00:27→18:40)
[2016-12-07] MEDS: HumuLIN R SUB-Q SCH ×5 (00:30→18:41)
[2016-12-07] MEDS: DUONEB *Not for PRN Use IH SCH ×4 (02:28→19:09)
[2016-12-07] MEDS: APRESOLINE PO SCH ×3 (06:20→21:53)
[2016-12-07] MEDS: LASIX IV SCH ×2 (06:20→18:40)
[2016-12-07 07:20] LABS: Calcium 9.5 mg/dL (8.4-10.2)
[2016-12-07 07:22] LABS: Basophils % (Auto) 0.2 % (0.0-1.8); Eosinophils # (Auto) 0.1 K/mm3 (0.0-0.4); Eosinophils % (Auto) 0.4 % (0.0-4.3); Hematocrit 21.2 % (30.3-42.9); Hemoglobin 6.9 gm/dl (10.1-14.3); Lymphocytes # (Auto) 3.3 K/mm3 (1.2-5.4); Lymphocytes % (Auto) 17.7 % (13.4-35.0); Mean Corpuscular HGB Conc 32 % (30-34); Mean Corpuscular Hemoglobin 27 pg (28-32); Mean Corpuscular Volume 84 fl (79-97); Monocytes # (Auto) 1.9 K/mm3 (0.0-0.8); Monocytes % (Auto) 9.9 % (0.0-7.3); Platelet Count 353 K/mm3 (140-440); Red Blood Count 2.52 M/mm3 (3.65-5.03)
[2016-12-07 08:24] LABS: Hematocrit 21.1 % (30.3-42.9); Hemoglobin 6.8 gm/dl (10.1-14.3)
--- NOTE | 2016-12-07 09:10 | Progress Note ---
Subjective Principal diagnosis: Acute resp failure on MVS; S/P Acute CVA; Acute Encephalopathy; JUANITA Interval history: Patient was seen today for follow-up on multiple renal-related issues her clinical status remains unchanged Events of 24 hours, interdisciplinary notes were also reviewed Lab results were reviewed Social history: Reviewed Medication: Reviewed Family history: Reviewed Allergies: Reviewed Physical examination General; no acute distress HEENT: Mild pallor no icterus oral mucosa moist Neck: Supple soft no jugular venous distention Chest: Bilateral clear to auscultation anteriorly posteriorly a few faint basilar crackles at the lung bases no wheezes Cardiovascular: S1-S2 heart no S3-S4 Abdomen: Soft nontender no voluntary guarding rigidity rebound no organomegaly no masses no suprapubic fullness no CVA tenderness Extremity: Minimal edema dry skin no tenderness in the Area Derm: Dry skin Assessment and plan Acute on chronic renal failure: Patient is currently dialysis dependent we'll continue to dialyze 3 times per week Patient is currently an uric Accident and hypertension colon to monitor and follow Anemia and end-stage renal disease we'll discontinue erythropoietin due to stroke in my opinion and follow may need packed red blood cell transfusion only Patient will need 2 units of packed red blood cell transfusion please arrange Accelerated hypertension currently well controlled mild tachycardia to follow Secondary hyperparathyroidism to monitor phosphorus PTH and calcium level periodically Persistent vegetative state Prognosis poor We'll continue to follow and make recommendation from renal standpoint Objective - Vital Signs Vital signs: Vital Signs - 12hr 12/06/16 12/06/16 12/06/16 21:30 21:45 22:00 Temperature Pulse Rate 126 H 131 H Pulse Rate [ Bilateral Throughout] Pulse Rate [ From Monitor] Respiratory 26 H Rate Respiratory Rate [Bilateral Throughout] Blood Pressure 171/92 160/88 O2 Sat by Pulse 100 96 Oximetry O2 Sat by Pulse Oximetry [ Assessment] 12/06/16 12/06/16 12/06/16 22:30 23:00 23:25 Temperature Pulse Rate 132 H 132 H 135 H Pulse Rate [ Bilateral Throughout] Pulse Rate [ From Monitor] Respiratory 26 H 25 H Rate Respiratory Rate [Bilateral Throughout] Blood Pressure 143/76 135/80 139/83 O2 Sat by Pulse 96 97 Oximetry O2 Sat by Pulse Oximetry [ Assessment] 12/06/16 12/06/16 12/06/16 23:28 23:30 23:50 Temperature Pulse Rate 141 H 134 H Pulse Rate [ Bilateral Throughout] Pulse Rate [ From Monitor] Respiratory 25 H 21 Rate Respiratory Rate [Bilateral Throughout] Blood Pressure 135/80 129/81 O2 Sat by Pulse 98 98 Oximetry O2 Sat by Pulse 100 Oximetry [ Assessment] 12/07/16 12/07/16 12/07/16 00:00 00:27 00:30 Temperature 98.8 F Pulse Rate 135 H 137 H 135 H Pulse Rate [ Bilateral Throughout] Pulse Rate [ 135 H From Monitor] Respiratory 25 H 26 H 31 H Rate Respiratory Rate [Bilateral Throughout] Blood Pressure 150/84 156/85 139/84 O2 Sat by Pulse 99 99 Oximetry O2 Sat by Pulse Oximetry [ Assessment] 12/07/16 12/07/16 12/07/16 01:00 01:10 01:30 Temperature Pulse Rate 110 H 94 H Pulse Rate [ Bilateral Throughout] Pulse Rate [ From Monitor] Respiratory 20 20 18 Rate Respiratory Rate [Bilateral Throughout] Blood Pressure 120/78 100/57 O2 Sat by Pulse 100 100 Oximetry O2 Sat by Pulse Oximetry [ Assessment] 12/07/16 12/07/16 12/07/16 02:00 02:29 02:30 Temperature Pulse Rate 95 H 99 H Pulse Rate [ 101 H Bilateral Throughout] Pulse Rate [ From Monitor] Respiratory 17 13 Rate Respiratory 17 Rate [Bilateral Throughout] Blood Pressure 101/55 114/72 O2 Sat by Pulse 100 99 Oximetry O2 Sat by Pulse Oximetry [ Assessment] 12/07/16 12/07/16 12/07/16 02:45 03:00 03:30 Temperature Pulse Rate 104 H 103 H Pulse Rate [ 103 H Bilateral Throughout] Pulse Rate [ From Monitor] Respiratory 18 19 Rate Respiratory 17 Rate [Bilateral Throughout] Blood Pressure 127/75 124/81 O2 Sat by Pulse 99 100 Oximetry O2 Sat by Pulse Oximetry [ Assessment] 12/07/16 12/07/16 12/07/16 03:50 04:00 04:30 Temperature 98.7 F Pulse Rate 104 H 108 H Pulse Rate [ Bilateral Throughout] Pulse Rate [ 104 H From Monitor] Respiratory 19 22 Rate Respiratory Rate [Bilateral Throughout] Blood Pressure 129/83 136/88 O2 Sat by Pulse 99 99 Oximetry O2 Sat by Pulse Oximetry [ Assessment] 12/07/16 12/07/16 12/07/16 04:52 05:00 05:30 Temperature Pulse Rate 109 H 108 H 112 H Pulse Rate [ Bilateral Throughout] Pulse Rate [ From Monitor] Respiratory 21 23 Rate Respiratory Rate [Bilateral Throughout] Blood Pressure 153/85 152/83 157/82 O2 Sat by Pulse 100 100 Oximetry O2 Sat by Pulse Oximetry [ Assessment] 12/07/16 12/07/16 12/07/16 06:00 06:20 06:30 Temperature Pulse Rate 115 H 119 H 118 H Pulse Rate [ Bilateral Throughout] Pulse Rate [ From Monitor] Respiratory 20 22 Rate Respiratory Rate [Bilateral Throughout] Blood Pressure 161/94 142/86 147/87 O2 Sat by Pulse 100 100 Oximetry O2 Sat by Pulse Oximetry [ Assessment] 12/07/16 12/07/16 12/07/16 07:00 07:30 07:45 Temperature Pulse Rate 109 H 100 H Pulse Rate [ 103 H 102 H Bilateral Throughout] Pulse Rate [ From Monitor] Respiratory 21 20 Rate Respiratory 24 22 Rate [Bilateral Throughout] Blood Pressure 123/73 123/68 O2 Sat by Pulse 100 100 Oximetry O2 Sat by Pulse Oximetry [ Assessment] 12/07/16 12/07/16 12/07/16 08:00 08:12 08:30 Temperature 98.6 F Pulse Rate 103 H 105 H Pulse Rate [ Bilateral Throughout] Pulse Rate [ From Monitor] Respiratory 21 15 Rate Respiratory Rate [Bilateral Throughout] Blood Pressure 130/76 128/78 O2 Sat by Pulse 100 100 Oximetry O2 Sat by Pulse 100 Oximetry [ Assessment] - Lab 12/07/16 08:00 12/07/16 06:30 Most recent lab results ABG pH 7.450 pH Units (7.350-7.450) 12/05/16 Unknown ABG pCO2 29.6 mm Hg 12/05/16 Unknown ABG pO2 75.2 mm Hg (80.0-90.0) L 12/05/16 Unknown ABG HCO3 20.1 mmol/L (20.0-26.0) 12/05/16 Unknown ABG O2 Saturation 96.8 % (95.0-99.0) 12/05/16 Unknown Calcium 9.5 mg/dL (8.4-10.2) 12/07/16 06:30 Phosphorus 3.40 mg/dL (2.5-4.5) D 12/07/16 06:30 Magnesium 1.70 mg/dL (1.7-2.3) 12/07/16 06:30 Urine Creatinine 19.7 mg/dL (0.1-20.0) 11/12/16 10:18 Urine Sodium 36 mEq/L 09/16/16 19:19 Urine Total Protein 16 mg/dL (5-11.8) H 09/16/16 19:19
[2016-12-07] MEDS ORDERED: NACL 0.9% 500 ML 500 ML IV ONE (09:21)
--- NOTE | 2016-12-07 09:21 | Progress Note ---
Assessment and Plan Acute Hypoxemic Respiratory Failure (now with exacerbation and back on MVS) Hypertension (unable to receive p.o. 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 and get back to us this next week) - will transfuse 1 unit PRBC today - s/p HD/UF yesterday - keep on with daily PSV trials and / or T-piece as tolerated (repeat trial each shift if failed earlier shift) - continue TPN administration (continue TPN; NPO except for meds) - continue scopolamine for secretion control (will add robinul due to increasing oropharyngeal secretions) - continue to wean FiO2 for sats > 94% - continue bronchodilators and pulmonary toilet - VAP bundle addressed - continue prn IV metorolol - continue AB's (Vancomycin) till stop date per ID recs - continue metoprolol and amlodipine (rate control better) - continue HD/UF per nephrology (for HD/UF session yesterday) - continue to follow electrolytes and correct as necessary - continue GI & VTE prophylaxis - Continue flu & pneumovax per protocol ... she remains critically ill on life sustaining interventions including MVS and at risk for further deterioration including ....34' CCT today without overlap Subjective Date of service: 12/07/16 Principal diagnosis: Acute resp failure on MVS; S/P Acute CVA; Acute Encephalopathy; JUANITA Interval history: Patient is seen today for: Acute resp failure on MVS; S/P Acute CVA; Acute Encephalopathy; JUANITA Seen and examined at bedside; 24hour events reviewed; nursing and respiratory care staff consulted; no adverse overnight events reported to me; repeat Hb is 6.8g/dl; no gross bleeding; AMS is persistent; no N/V/F/C; tolerating TPN; no word back from family; i tried PSV at Psupp of [id number] at bedside but pulling low TV (< 300mls) and rate up to 40/min Objective Vital Signs - 12hr 12/06/16 12/06/16 12/06/16 21:30 21:45 22:00 Temperature Pulse Rate 126 H 131 H Pulse Rate [ Bilateral Throughout] Pulse Rate [ From Monitor] Respiratory 26 H Rate Respiratory Rate [Bilateral Throughout] Blood Pressure 171/92 160/88 O2 Sat by Pulse 100 96 Oximetry O2 Sat by Pulse Oximetry [ Assessment] 12/06/16 12/06/16 12/06/16 22:30 23:00 23:25 Temperature Pulse Rate 132 H 132 H 135 H Pulse Rate [ Bilateral Throughout] Pulse Rate [ From Monitor] Respiratory 26 H 25 H Rate Respiratory Rate [Bilateral Throughout] Blood Pressure 143/76 135/80 139/83 O2 Sat by Pulse 96 97 Oximetry O2 Sat by Pulse Oximetry [ Assessment] 12/06/16 12/06/16 12/06/16 23:28 23:30 23:50 Temperature Pulse Rate 141 H 134 H Pulse Rate [ Bilateral Throughout] Pulse Rate [ From Monitor] Respiratory 25 H 21 Rate Respiratory Rate [Bilateral Throughout] Blood Pressure 135/80 129/81 O2 Sat by Pulse 98 98 Oximetry O2 Sat by Pulse 100 Oximetry [ Assessment] 12/07/16 12/07/16 12/07/16 00:00 00:27 00:30 Temperature 98.8 F Pulse Rate 135 H 137 H 135 H Pulse Rate [ Bilateral Throughout] Pulse Rate [ 135 H From Monitor] Respiratory 25 H 26 H 31 H Rate Respiratory Rate [Bilateral Throughout] Blood Pressure 150/84 156/85 139/84 O2 Sat by Pulse 99 99 Oximetry O2 Sat by Pulse Oximetry [ Assessment] 12/07/16 12/07/16 12/07/16 01:00 01:10 01:30 Temperature Pulse Rate 110 H 94 H Pulse Rate [ Bilateral Throughout] Pulse Rate [ From Monitor] Respiratory 20 20 18 Rate Respiratory Rate [Bilateral Throughout] Blood Pressure 120/78 100/57 O2 Sat by Pulse 100 100 Oximetry O2 Sat by Pulse Oximetry [ Assessment] 12/07/16 12/07/16 12/07/16 02:00 02:29 02:30 Temperature Pulse Rate 95 H 99 H Pulse Rate [ 101 H Bilateral Throughout] Pulse Rate [ From Monitor] Respiratory 17 13 Rate Respiratory 17 Rate [Bilateral Throughout] Blood Pressure 101/55 114/72 O2 Sat by Pulse 100 99 Oximetry O2 Sat by Pulse Oximetry [ Assessment] 12/07/16 12/07/16 12/07/16 02:45 03:00 03:30 Temperature Pulse Rate 104 H 103 H Pulse Rate [ 103 H Bilateral Throughout] Pulse Rate [ From Monitor] Respiratory 18 19 Rate Respiratory 17 Rate [Bilateral Throughout] Blood Pressure 127/75 124/81 O2 Sat by Pulse 99 100 Oximetry O2 Sat by Pulse Oximetry [ Assessment] 12/07/16 12/07/16 12/07/16 03:50 04:00 04:30 Temperature 98.7 F Pulse Rate 104 H 108 H Pulse Rate [ Bilateral Throughout] Pulse Rate [ 104 H From Monitor] Respiratory 19 22 Rate Respiratory Rate [Bilateral Throughout] Blood Pressure 129/83 136/88 O2 Sat by Pulse 99 99 Oximetry O2 Sat by Pulse Oximetry [ Assessment] 12/07/16 12/07/16 12/07/16 04:52 05:00 05:30 Temperature Pulse Rate 109 H 108 H 112 H Pulse Rate [ Bilateral Throughout] Pulse Rate [ From Monitor] Respiratory 21 23 Rate Respiratory Rate [Bilateral Throughout] Blood Pressure 153/85 152/83 157/82 O2 Sat by Pulse 100 100 Oximetry O2 Sat by Pulse Oximetry [ Assessment] 12/07/16 12/07/16 12/07/16 06:00 06:20 06:30 Temperature Pulse Rate 115 H 119 H 118 H Pulse Rate [ Bilateral Throughout] Pulse Rate [ From Monitor] Respiratory 20 22 Rate Respiratory Rate [Bilateral Throughout] Blood Pressure 161/94 142/86 147/87 O2 Sat by Pulse 100 100 Oximetry O2 Sat by Pulse Oximetry [ Assessment] 12/07/16 12/07/16 12/07/16 07:00 07:30 07:45 Temperature Pulse Rate 109 H 100 H Pulse Rate [ 103 H 102 H Bilateral Throughout] Pulse Rate [ From Monitor] Respiratory 21 20 Rate Respiratory 24 22 Rate [Bilateral Throughout] Blood Pressure 123/73 123/68 O2 Sat by Pulse 100 100 Oximetry O2 Sat by Pulse Oximetry [ Assessment] 12/07/16 12/07/16 12/07/16 08:00 08:12 08:30 Temperature 98.6 F Pulse Rate 103 H 105 H Pulse Rate [ Bilateral Throughout] Pulse Rate [ From Monitor] Respiratory 21 15 Rate Respiratory Rate [Bilateral Throughout] Blood Pressure 130/76 128/78 O2 Sat by Pulse 100 100 Oximetry O2 Sat by Pulse 100 Oximetry [ Assessment] Constitutional: appears uncomfortable, other (not tracking) Eyes: non-icteric, other (tracheostomy tube in midline of neck) ENT: oropharynx moist, oropharyngeal exudate pre Neck: supple, no lymphadenopathy, no JVD, other (no thyromegaly) Effort: mildly labored Ascultation: Left: diminished breath sounds (base), Bilateral: rhonchi (and referred upper airway sounds) Percussion: Left: dull (base) Cardiovascular: regular rate and rhythm, other (no rubs / murmurs) Gastrointestinal: hypoactive bowel sounds, soft, non-tender, non-distended, other (RLQ & LUQ stomas with colostomy bags) Integumentary: other (no rash; no cellulitis; poor turgor) Extremities: no cyanosis, pulses normal, no ischemia or petechiae, edema (1+ bilaterally) Neurologic: pupils equal and round, unable to assess, other (encephalopathic) Psychiatric: other (unable to assess) CBC and BMP: 12/07/16 08:00 12/07/16 06:30 ABG, PT/INR, D-dimer: ABG POC ABG pH 7.487 (7.35-7.45) H 11/25/16 14:12 ABG pH 7.450 pH Units (7.350-7.450) 12/05/16 Unknown POC ABG pCO2 39.0 (35-45) 11/25/16 14:12 ABG pCO2 29.6 mm Hg 12/05/16 Unknown POC ABG pO2 153 (80-105) H 11/25/16 14:12 ABG pO2 75.2 mm Hg (80.0-90.0) L 12/05/16 Unknown POC ABG HCO3 29.5 11/25/16 14:12 POC ABG Total CO2 31 11/25/16 14:12 POC ABG O2 Sat 99 11/25/16 14:12 ABG O2 Saturation 96.8 % (95.0-99.0) 12/05/16 Unknown PT/INR, D-dimer PT 16.8 Sec. (12.2-14.9) H 11/17/16 03:20 INR 1.37 (0.87-1.13) H 11/17/16 03:20 Abnormal lab findings: Abnormal Labs 09/03/16 09/03/16 09/03/16 12:12 15:07 16:20 WBC RBC Hgb Hct MCV MCH MCHC RDW Plt Count Lymph % (Auto) [place] % (Auto) Lymph # [place] # Baso # Seg Neutrophils % Seg Neuts % (Manual) Lymphocytes % (Manual) Monocytes % (Manual) Eosinophils % (Manual) Basophils % (Manual) Nucleated RBC % Seg Neutrophils # Seg Neutrophils # Man Lymphocytes # (Manual) Monocytes # (Manual) Eosinophils # (Manual) PT INR Fibrinogen dRVVT Confirm Interp Factor V Activity POC ABG pH 7.452 H POC ABG pCO2 POC ABG pO2 ABG pO2 ABG HCO3 ABG Base Excess ABG Hemoglobin Oxyhemoglobin Sodium Potassium Chloride Carbon Dioxide BUN Creatinine Glucose POC Glucose 178 H Lactic Acid Calcium Phosphorus 2.20 L Magnesium 1.60 L Direct Bilirubin AST ALT Alkaline Phosphatase Lactate Dehydrogenase Troponin T C-Reactive Protein Total Protein Albumin Prealbumin Triglycerides Cholesterol LDL Cholesterol Direct HDL Cholesterol Urine pH Urine WBC (Auto) Urine Creatinine Urine Total Protein Fluid Total Protein Vancomycin Trough Rheumatoid Factor Complement C4 Miscellaneous Test Crossmatch 09/03/16 09/03/16 09/03/16 17:57 17:58 23:50 WBC RBC Hgb Hct MCV MCH MCHC RDW Plt Count Lymph % (Auto) [place] % (Auto) Lymph # [place] # Baso # Seg Neutrophils % Seg Neuts % (Manual) Lymphocytes % (Manual) Monocytes % (Manual) Eosinophils % (Manual) Basophils % (Manual) Nucleated RBC % Seg Neutrophils # Seg Neutrophils # Man Lymphocytes # (Manual) Monocytes # (Manual) Eosinophils # (Manual) PT INR Fibrinogen dRVVT Confirm Interp Factor V Activity POC ABG pH POC ABG pCO2 POC ABG pO2 ABG pO2 ABG HCO3 ABG Base Excess ABG Hemoglobin Oxyhemoglobin Sodium Potassium Chloride Carbon Dioxide BUN Creatinine Glucose POC Glucose 162 H 145 H Lactic Acid Calcium Phosphorus 2.30 L Magnesium Direct Bilirubin AST ALT Alkaline Phosphatase Lactate Dehydrogenase Troponin T C-Reactive Protein Total Protein Albumin Prealbumin Triglycerides Cholesterol LDL Cholesterol Direct HDL Cholesterol Urine pH Urine WBC (Auto) Urine Creatinine Urine Total Protein Fluid Total Protein Vancomycin Trough Rheumatoid Factor Complement C4 Miscellaneous Test Crossmatch 09/04/16 09/04/16 09/04/16 03:31 03:31 05:42 WBC RBC Hgb 9.7 L D Hct MCV 72 L MCH 23 L MCHC RDW 17.5 H Plt Count Lymph % (Auto) 11.1 L [place] % (Auto) Lymph # [place] # Baso # Seg Neutrophils % 84.3 H Seg Neuts % (Manual) Lymphocytes % (Manual) Monocytes % (Manual) Eosinophils % (Manual) Basophils % (Manual) Nucleated RBC % Seg Neutrophils # 8.9 H Seg Neutrophils # Man Lymphocytes # (Manual) Monocytes # (Manual) Eosinophils # (Manual) PT INR Fibrinogen dRVVT Confirm Interp Factor V Activity POC ABG pH POC ABG pCO2 POC ABG pO2 ABG pO2 ABG HCO3 ABG Base Excess ABG Hemoglobin Oxyhemoglobin Sodium 135 L Potassium 2.9 L* Chloride 97.2 L Carbon Dioxide 19 L BUN Creatinine 1.7 H Glucose 170 H POC Glucose 152 H Lactic Acid Calcium Phosphorus Magnesium Direct Bilirubin AST ALT Alkaline Phosphatase Lactate Dehydrogenase Troponin T C-Reactive Protein Total Protein Albumin Prealbumin Triglycerides 160 H Cholesterol LDL Cholesterol Direct HDL Cholesterol 31 L Urine pH Urine WBC (Auto) Urine Creatinine Urine Total Protein Fluid Total Protein Vancomycin Trough Rheumatoid Factor Complement C4 Miscellaneous Test Crossmatch 09/04/16 09/04/16 09/04/16 11:34 17:46 23:29 WBC RBC Hgb Hct MCV MCH MCHC RDW Plt Count Lymph % (Auto) [place] % (Auto) Lymph # [place] # Baso # Seg Neutrophils % Seg Neuts % (Manual) Lymphocytes % (Manual) Monocytes % (Manual) Eosinophils % (Manual) Basophils % (Manual) Nucleated RBC % Seg Neutrophils # Seg Neutrophils # Man Lymphocytes # (Manual) Monocytes # (Manual) Eosinophils # (Manual) PT INR Fibrinogen dRVVT Confirm Interp Factor V Activity POC ABG pH POC ABG pCO2 POC ABG pO2 ABG pO2 ABG HCO3 ABG Base Excess ABG Hemoglobin Oxyhemoglobin Sodium Potassium Chloride Carbon Dioxide BUN Creatinine Glucose POC Glucose 165 H 210 H 139 H Lactic Acid Calcium Phosphorus Magnesium Direct Bilirubin AST ALT Alkaline Phosphatase Lactate Dehydrogenase Troponin T C-Reactive Protein Total Protein Albumin Prealbumin Triglycerides Cholesterol LDL Cholesterol Direct HDL Cholesterol Urine pH Urine WBC (Auto) Urine Creatinine Urine Total Protein Fluid Total Protein Vancomycin Trough Rheumatoid Factor Complement C4 Miscellaneous Test Crossmatch 09/05/16 09/05/16 09/05/16 04:05 04:05 05:38 WBC RBC Hgb Hct MCV 76 L D MCH 23 L MCHC RDW 17.8 H Plt Count Lymph % (Auto) [place] % (Auto) Lymph # [place] # Baso # Seg Neutrophils % Seg Neuts % (Manual) Lymphocytes % (Manual) Monocytes % (Manual) Eosinophils % (Manual) Basophils % (Manual) Nucleated RBC % Seg Neutrophils # Seg Neutrophils # Man Lymphocytes # (Manual) Monocytes # (Manual) Eosinophils # (Manual) PT INR Fibrinogen dRVVT Confirm Interp Factor V Activity POC ABG pH POC ABG pCO2 POC ABG pO2 ABG pO2 ABG HCO3 ABG Base Excess ABG Hemoglobin Oxyhemoglobin Sodium 134 L Potassium Chloride Carbon Dioxide 18 L BUN Creatinine 1.8 H Glucose 192 H POC Glucose 175 H Lactic Acid Calcium Phosphorus Magnesium Direct Bilirubin AST ALT Alkaline Phosphatase Lactate Dehydrogenase Troponin T C-Reactive Protein Total Protein Albumin Prealbumin Triglycerides Cholesterol LDL Cholesterol Direct HDL Cholesterol Urine pH Urine WBC (Auto) Urine Creatinine Urine Total Protein Fluid Total Protein Vancomycin Trough Rheumatoid Factor Complement C4 Miscellaneous Test Crossmatch 09/05/16 09/05/16 09/05/16 11:38 17:48 23:22 WBC RBC Hgb Hct MCV MCH MCHC RDW Plt Count Lymph % (Auto) [place] % (Auto) Lymph # [place] # Baso # Seg Neutrophils % Seg Neuts % (Manual) Lymphocytes % (Manual) Monocytes % (Manual) Eosinophils % (Manual) Basophils % (Manual) Nucleated RBC % Seg Neutrophils # Seg Neutrophils # Man Lymphocytes # (Manual) Monocytes # (Manual) Eosinophils # (Manual) PT INR Fibrinogen dRVVT Confirm Interp Factor V Activity POC ABG pH POC ABG pCO2 POC ABG pO2 ABG pO2 ABG HCO3 ABG Base Excess ABG Hemoglobin Oxyhemoglobin Sodium Potassium Chloride Carbon Dioxide BUN Creatinine Glucose POC Glucose 164 H 186 H 195 H Lactic Acid Calcium Phosphorus Magnesium Direct Bilirubin AST ALT Alkaline Phosphatase Lactate Dehydrogenase Troponin T C-Reactive Protein Total Protein Albumin Prealbumin Triglycerides Cholesterol LDL Cholesterol Direct HDL Cholesterol Urine pH Urine WBC (Auto) Urine Creatinine Urine Total Protein Fluid Total Protein Vancomycin Trough Rheumatoid Factor Complement C4 Miscellaneous Test Crossmatch 09/06/16 09/06/16 09/06/16 04:12 05:59 07:32 WBC RBC Hgb Hct MCV MCH MCHC RDW Plt Count Lymph % (Auto) [place] % (Auto) Lymph # [place] # Baso # Seg Neutrophils % Seg Neuts % (Manual) Lymphocytes % (Manual) Monocytes % (Manual) Eosinophils % (Manual) Basophils % (Manual) Nucleated RBC % Seg Neutrophils # Seg Neutrophils # Man Lymphocytes # (Manual) Monocytes # (Manual) Eosinophils # (Manual) PT INR Fibrinogen dRVVT Confirm Interp Factor V Activity POC ABG pH 7.514 H POC ABG pCO2 29.1 L POC ABG pO2 72 L ABG pO2 ABG HCO3 ABG Base Excess ABG Hemoglobin Oxyhemoglobin Sodium 133 L Potassium 3.4 L Chloride 94.9 L Carbon Dioxide 19 L BUN 30 H Creatinine 2.1 H Glucose 139 H POC Glucose 146 H Lactic Acid Calcium Phosphorus Magnesium Direct Bilirubin AST ALT Alkaline Phosphatase Lactate Dehydrogenase Troponin T C-Reactive Protein Total Protein Albumin Prealbumin Triglycerides Cholesterol LDL Cholesterol Direct HDL Cholesterol Urine pH Urine WBC (Auto) Urine Creatinine Urine Total Protein Fluid Total Protein Vancomycin Trough Rheumatoid Factor Complement C4 Miscellaneous Test Crossmatch 09/06/16 09/06/16 09/06/16 11:57 17:58 19:02 WBC RBC Hgb Hct MCV MCH MCHC RDW Plt Count Lymph % (Auto) [place] % (Auto) Lymph # [place] # Baso # Seg Neutrophils % Seg Neuts % (Manual) Lymphocytes % (Manual) Monocytes % (Manual) Eosinophils % (Manual) Basophils % (Manual) Nucleated RBC % Seg Neutrophils # Seg Neutrophils # Man Lymphocytes # (Manual) Monocytes # (Manual) Eosinophils # (Manual) PT INR Fibrinogen dRVVT Confirm Interp Factor V Activity POC ABG pH 7.465 H POC ABG pCO2 32.0 L POC ABG pO2 ABG pO2 ABG HCO3 ABG Base Excess ABG Hemoglobin Oxyhemoglobin Sodium Potassium Chloride Carbon Dioxide BUN Creatinine Glucose POC Glucose 165 H 160 H Lactic Acid Calcium Phosphorus Magnesium Direct Bilirubin AST ALT Alkaline Phosphatase Lactate Dehydrogenase Troponin T C-Reactive Protein Total Protein Albumin Prealbumin Triglycerides Cholesterol LDL Cholesterol Direct HDL Cholesterol Urine pH Urine WBC (Auto) Urine Creatinine Urine Total Protein Fluid Total Protein Vancomycin Trough Rheumatoid Factor Complement C4 Miscellaneous Test Crossmatch 09/06/16 09/07/16 09/07/16 23:45 02:47 02:47 WBC RBC Hgb Hct MCV MCH MCHC RDW Plt Count Lymph % (Auto) [place] % (Auto) Lymph # [place] # Baso # Seg Neutrophils % Seg Neuts % (Manual) Lymphocytes % (Manual) Monocytes % (Manual) Eosinophils % (Manual) Basophils % (Manual) Nucleated RBC % Seg Neutrophils # Seg Neutrophils # Man Lymphocytes # (Manual) Monocytes # (Manual) Eosinophils # (Manual) PT INR Fibrinogen dRVVT Confirm Interp Factor V Activity POC ABG pH POC ABG pCO2 POC ABG pO2 ABG pO2 ABG HCO3 ABG Base Excess ABG Hemoglobin Oxyhemoglobin Sodium Potassium Chloride Carbon Dioxide BUN Creatinine Glucose POC Glucose 204 H Lactic Acid Calcium Phosphorus Magnesium Direct Bilirubin AST ALT Alkaline Phosphatase Lactate Dehydrogenase Troponin T C-Reactive Protein Total Protein Albumin Prealbumin Triglycerides Cholesterol LDL Cholesterol Direct HDL Cholesterol Urine pH Urine WBC (Auto) 68.0 H Urine Creatinine 106.1 H Urine Total Protein Fluid Total Protein Vancomycin Trough Rheumatoid Factor Complement C4 Miscellaneous Test Crossmatch 09/07/16 09/07/16 09/07/16 04:50 06:19 06:39 WBC RBC Hgb Hct MCV MCH MCHC RDW Plt Count Lymph % (Auto) [place] % (Auto) Lymph # [place] # Baso # Seg Neutrophils % Seg Neuts % (Manual) Lymphocytes % (Manual) Monocytes % (Manual) Eosinophils % (Manual) Basophils % (Manual) Nucleated RBC % Seg Neutrophils # Seg Neutrophils # Man Lymphocytes # (Manual) Monocytes # (Manual) Eosinophils # (Manual) PT INR Fibrinogen dRVVT Confirm Interp Factor V Activity POC ABG pH 7.457 H POC ABG pCO2 32.1 L POC ABG pO2 76 L ABG pO2 ABG HCO3 ABG Base Excess ABG Hemoglobin Oxyhemoglobin Sodium 132 L Potassium Chloride 94.7 L Carbon Dioxide BUN 53 H Creatinine 2.9 H Glucose 151 H POC Glucose 149 H Lactic Acid Calcium Phosphorus Magnesium Direct Bilirubin AST ALT Alkaline Phosphatase Lactate Dehydrogenase Troponin T C-Reactive Protein Total Protein Albumin Prealbumin Triglycerides Cholesterol LDL Cholesterol Direct HDL Cholesterol Urine pH Urine WBC (Auto) Urine Creatinine Urine Total Protein Fluid Total Protein Vancomycin Trough Rheumatoid Factor Complement C4 Miscellaneous Test Crossmatch 09/07/16 09/07/16 09/07/16 09:20 11:43 11:43 WBC 19.4 H RBC Hgb 8.3 L Hct 26.4 L D MCV 72 L D MCH 22 L MCHC RDW 17.9 H Plt Count Lymph % (Auto) 8.5 L [place] % (Auto) Lymph # [place] # 1.0 H Baso # Seg Neutrophils % 85.8 H Seg Neuts % (Manual) Lymphocytes % (Manual) Monocytes % (Manual) Eosinophils % (Manual) Basophils % (Manual) Nucleated RBC % Seg Neutrophils # 16.6 H Seg Neutrophils # Man Lymphocytes # (Manual) Monocytes # (Manual) Eosinophils # (Manual) PT INR Fibrinogen dRVVT Confirm Interp Factor V Activity POC ABG pH POC ABG pCO2 POC ABG pO2 ABG pO2 ABG HCO3 ABG Base Excess ABG Hemoglobin Oxyhemoglobin Sodium 134 L Potassium Chloride 97.2 L Carbon Dioxide 20 L BUN 58 H Creatinine 2.9 H Glucose 147 H POC Glucose Lactic Acid Calcium Phosphorus 2.40 L Magnesium 2.40 H Direct Bilirubin AST ALT Alkaline Phosphatase Lactate Dehydrogenase Troponin T C-Reactive Protein Total Protein 5.8 L Albumin 2.2 L Prealbumin Triglycerides Cholesterol LDL Cholesterol Direct HDL Cholesterol Urine pH Urine WBC (Auto) Urine Creatinine Urine Total Protein Fluid Total Protein Vancomycin Trough Rheumatoid Factor Complement C4 58 H Miscellaneous Test Crossmatch 09/07/16 09/07/16 09/07/16 11:50 16:00 17:31 WBC RBC Hgb Hct MCV MCH MCHC RDW Plt Count Lymph % (Auto) [place] % (Auto) Lymph # [place] # Baso # Seg Neutrophils % Seg Neuts % (Manual) Lymphocytes % (Manual) Monocytes % (Manual) Eosinophils % (Manual) Basophils % (Manual) Nucleated RBC % Seg Neutrophils # Seg Neutrophils # Man Lymphocytes # (Manual) Monocytes # (Manual) Eosinophils # (Manual) PT INR Fibrinogen dRVVT Confirm Interp Factor V Activity POC ABG pH POC ABG pCO2 POC ABG pO2 158 H ABG pO2 ABG HCO3 ABG Base Excess ABG Hemoglobin Oxyhemoglobin Sodium Potassium Chloride Carbon Dioxide BUN Creatinine Glucose POC Glucose 175 H Lactic Acid Calcium Phosphorus Magnesium Direct Bilirubin AST ALT Alkaline Phosphatase Lactate Dehydrogenase Troponin T C-Reactive Protein Total Protein Albumin Prealbumin Triglycerides Cholesterol LDL Cholesterol Direct HDL Cholesterol Urine pH Urine WBC (Auto) Urine Creatinine 66.3 H Urine Total Protein Fluid Total Protein Vancomycin Trough Rheumatoid Factor Complement C4 Miscellaneous Test Crossmatch 09/07/16 09/08/16 09/08/16 23:50 05:46 06:18 WBC 17.8 H RBC 3.58 L Hgb 8.1 L Hct 25.5 L MCV 71 L MCH 23 L MCHC RDW 18.4 H Plt Count Lymph % (Auto) [place] % (Auto) Lymph # [place] # Baso # Seg Neutrophils % Seg Neuts % (Manual) 92.0 H Lymphocytes % (Manual) 6.0 L Monocytes % (Manual) Eosinophils % (Manual) Basophils % (Manual) Nucleated RBC % Seg Neutrophils # Seg Neutrophils # Man 16.4 H Lymphocytes # (Manual) 1.1 L Monocytes # (Manual) Eosinophils # (Manual) PT INR Fibrinogen dRVVT Confirm Interp Factor V Activity POC ABG pH POC ABG pCO2 34.3 L POC ABG pO2 71 L ABG pO2 ABG HCO3 ABG Base Excess ABG Hemoglobin Oxyhemoglobin Sodium Potassium Chloride Carbon Dioxide BUN Creatinine Glucose POC Glucose 216 H Lactic Acid Calcium Phosphorus Magnesium Direct Bilirubin AST ALT Alkaline Phosphatase Lactate Dehydrogenase Troponin T C-Reactive Protein Total Protein Albumin Prealbumin Triglycerides Cholesterol LDL Cholesterol Direct HDL Cholesterol Urine pH Urine WBC (Auto) Urine Creatinine Urine Total Protein Fluid Total Protein Vancomycin Trough Rheumatoid Factor Complement C4 Miscellaneous Test Crossmatch 09/08/16 09/08/16 09/08/16 06:18 06:51 10:55 WBC RBC Hgb Hct MCV MCH MCHC RDW Plt Count Lymph % (Auto) [place] % (Auto) Lymph # [place] # Baso # Seg Neutrophils % Seg Neuts % (Manual) Lymphocytes % (Manual) Monocytes % (Manual) Eosinophils % (Manual) Basophils % (Manual) Nucleated RBC % Seg Neutrophils # Seg Neutrophils # Man Lymphocytes # (Manual) Monocytes # (Manual) Eosinophils # (Manual) PT INR Fibrinogen dRVVT Confirm Interp Factor V Activity POC ABG pH POC ABG pCO2 POC ABG pO2 ABG pO2 ABG HCO3 ABG Base Excess ABG Hemoglobin Oxyhemoglobin Sodium 133 L Potassium Chloride 96.9 L Carbon Dioxide 20 L BUN 63 H Creatinine 2.7 H Glucose 195 H POC Glucose 204 H 169 H Lactic Acid Calcium Phosphorus Magnesium Direct Bilirubin AST ALT Alkaline Phosphatase Lactate Dehydrogenase Troponin T C-Reactive Protein Total Protein Albumin Prealbumin Triglycerides Cholesterol LDL Cholesterol Direct HDL Cholesterol Urine pH Urine WBC (Auto) Urine Creatinine Urine Total Protein Fluid Total Protein Vancomycin Trough Rheumatoid Factor Complement C4 Miscellaneous Test Crossmatch 09/08/16 09/08/16 09/08/16 11:48 11:48 11:48 WBC RBC Hgb Hct MCV MCH MCHC RDW Plt Count Lymph % (Auto) [place] % (Auto) Lymph # [place] # Baso # Seg Neutrophils % Seg Neuts % (Manual) Lymphocytes % (Manual) Monocytes % (Manual) Eosinophils % (Manual) Basophils % (Manual) Nucleated RBC % Seg Neutrophils # Seg Neutrophils # Man Lymphocytes # (Manual) Monocytes # (Manual) Eosinophils # (Manual) PT INR Fibrinogen 750 H dRVVT Confirm Interp Factor V Activity POC ABG pH POC ABG pCO2 POC ABG pO2 ABG pO2 ABG HCO3 ABG Base Excess ABG Hemoglobin Oxyhemoglobin Sodium Potassium Chloride Carbon Dioxide BUN Creatinine Glucose POC Glucose Lactic Acid Calcium Phosphorus Magnesium Direct Bilirubin AST ALT Alkaline Phosphatase Lactate Dehydrogenase Troponin T C-Reactive Protein 15.70 H Total Protein Albumin Prealbumin Triglycerides Cholesterol LDL Cholesterol Direct HDL Cholesterol Urine pH Urine WBC (Auto) Urine Creatinine Urine Total Protein Fluid Total Protein Vancomycin Trough Rheumatoid Factor 24 H Complement C4 Miscellaneous Test Crossmatch 09/08/16 09/08/16 09/09/16 15:35 18:25 00:24 WBC RBC Hgb Hct MCV MCH MCHC RDW Plt Count Lymph % (Auto) [place] % (Auto) Lymph # [place] # Baso # Seg Neutrophils % Seg Neuts % (Manual) Lymphocytes % (Manual) Monocytes % (Manual) Eosinophils % (Manual) Basophils % (Manual) Nucleated RBC % Seg Neutrophils # Seg Neutrophils # Man Lymphocytes # (Manual) Monocytes # (Manual) Eosinophils # (Manual) PT INR Fibrinogen dRVVT Confirm Interp Factor V Activity 182 H POC ABG pH POC ABG pCO2 POC ABG pO2 ABG pO2 ABG HCO3 ABG Base Excess ABG Hemoglobin Oxyhemoglobin Sodium Potassium Chloride Carbon Dioxide BUN Creatinine Glucose POC Glucose 184 H 216 H Lactic Acid Calcium Phosphorus Magnesium Direct Bilirubin AST ALT Alkaline Phosphatase Lactate Dehydrogenase Troponin T C-Reactive Protein Total Protein Albumin Prealbumin Triglycerides Cholesterol LDL Cholesterol Direct HDL Cholesterol Urine pH Urine WBC (Auto) Urine Creatinine Urine Total Protein Fluid Total Protein Vancomycin Trough Rheumatoid Factor Complement C4 Miscellaneous Test Crossmatch 09/09/16 09/09/16 09/09/16 03:00 03:00 04:04 WBC 27.9 H RBC Hgb 8.7 L Hct 28.1 L MCV 72 L MCH 22 L MCHC RDW 18.4 H Plt Count 485 H Lymph % (Auto) [place] % (Auto) Lymph # [place] # Baso # Seg Neutrophils % Seg Neuts % (Manual) 77.0 H Lymphocytes % (Manual) 9.0 L Monocytes % (Manual) Eosinophils % (Manual) Basophils % (Manual) Nucleated RBC % Seg Neutrophils # Seg Neutrophils # Man 21.5 H Lymphocytes # (Manual) Monocytes # (Manual) 2.0 H Eosinophils # (Manual) PT INR Fibrinogen dRVVT Confirm Interp Factor V Activity POC ABG pH POC ABG pCO2 POC ABG pO2 121 H ABG pO2 ABG HCO3 ABG Base Excess ABG Hemoglobin Oxyhemoglobin Sodium 135 L Potassium Chloride 96.3 L Carbon Dioxide 21 L BUN 83 H Creatinine 3.0 H Glucose 135 H POC Glucose Lactic Acid Calcium Phosphorus Magnesium Direct Bilirubin AST ALT Alkaline Phosphatase Lactate Dehydrogenase Troponin T C-Reactive Protein Total Protein Albumin Prealbumin Triglycerides Cholesterol LDL Cholesterol Direct HDL Cholesterol Urine pH Urine WBC (Auto) Urine Creatinine Urine Total Protein Fluid Total Protein Vancomycin Trough Rheumatoid Factor Complement C4 Miscellaneous Test Crossmatch 09/09/16 09/09/16 09/09/16 05:41 11:55 14:13 WBC RBC Hgb Hct MCV MCH MCHC RDW Plt Count Lymph % (Auto) [place] % (Auto) Lymph # [place] # Baso # Seg Neutrophils % Seg Neuts % (Manual) Lymphocytes % (Manual) Monocytes % (Manual) Eosinophils % (Manual) Basophils % (Manual) Nucleated RBC % Seg Neutrophils # Seg Neutrophils # Man Lymphocytes # (Manual) Monocytes # (Manual) Eosinophils # (Manual) PT INR Fibrinogen dRVVT Confirm Interp Factor V Activity POC ABG pH POC ABG pCO2 POC ABG pO2 ABG pO2 ABG HCO3 ABG Base Excess ABG Hemoglobin Oxyhemoglobin Sodium Potassium Chloride Carbon Dioxide BUN Creatinine Glucose POC Glucose 155 H 186 H Lactic Acid Calcium Phosphorus Magnesium Direct Bilirubin AST ALT Alkaline Phosphatase Lactate Dehydrogenase Troponin T C-Reactive Protein Total Protein Albumin Prealbumin Triglycerides Cholesterol LDL Cholesterol Direct HDL Cholesterol Urine pH Urine WBC (Auto) 25.0 H Urine Creatinine Urine Total Protein Fluid Total Protein Vancomycin Trough Rheumatoid Factor Complement C4 Miscellaneous Test Crossmatch 09/09/16 09/09/16 09/10/16 17:33 23:13 05:09 WBC RBC Hgb Hct MCV MCH MCHC RDW Plt Count Lymph % (Auto) [place] % (Auto) Lymph # [place] # Baso # Seg Neutrophils % Seg Neuts % (Manual) Lymphocytes % (Manual) Monocytes % (Manual) Eosinophils % (Manual) Basophils % (Manual) Nucleated RBC % Seg Neutrophils # Seg Neutrophils # Man Lymphocytes # (Manual) Monocytes # (Manual) Eosinophils # (Manual) PT INR Fibrinogen dRVVT Confirm Interp Factor V Activity POC ABG pH POC ABG pCO2 POC ABG pO2 74 L ABG pO2 ABG HCO3 ABG Base Excess ABG Hemoglobin Oxyhemoglobin Sodium Potassium Chloride Carbon Dioxide BUN Creatinine Glucose POC Glucose 211 H 215 H Lactic Acid Calcium Phosphorus Magnesium Direct Bilirubin AST ALT Alkaline Phosphatase Lactate Dehydrogenase Troponin T C-Reactive Protein Total Protein Albumin Prealbumin Triglycerides Cholesterol LDL Cholesterol Direct HDL Cholesterol Urine pH Urine WBC (Auto) Urine Creatinine Urine Total Protein Fluid Total Protein Vancomycin Trough Rheumatoid Factor Complement C4 Miscellaneous Test Crossmatch 0709/[id number] 09/10/16 05:17 05:17 11:31 WBC 15.8 H RBC 3.25 L Hgb 7.3 L Hct 22.9 L MCV 71 L MCH 23 L MCHC RDW 18.4 H Plt Count Lymph % (Auto) [place] % (Auto) Lymph # [place] # Baso # Seg Neutrophils % Seg Neuts % (Manual) 91.0 H Lymphocytes % (Manual) 4.0 L Monocytes % (Manual) Eosinophils % (Manual) Basophils % (Manual) Nucleated RBC % Seg Neutrophils # Seg Neutrophils # Man 14.4 H Lymphocytes # (Manual) 0.6 L Monocytes # (Manual) Eosinophils # (Manual) PT INR Fibrinogen dRVVT Confirm Interp Factor V Activity POC ABG pH POC ABG pCO2 POC ABG pO2 ABG pO2 ABG HCO3 ABG Base Excess ABG Hemoglobin Oxyhemoglobin Sodium Potassium Chloride Carbon Dioxide 21 L BUN 93 H Creatinine 2.9 H Glucose 146 H POC Glucose 188 H Lactic Acid Calcium 8.1 L Phosphorus Magnesium Direct Bilirubin AST ALT Alkaline Phosphatase Lactate Dehydrogenase Troponin T C-Reactive Protein Total Protein Albumin Prealbumin Triglycerides Cholesterol LDL Cholesterol Direct HDL Cholesterol Urine pH Urine WBC (Auto) Urine Creatinine Urine Total Protein Fluid Total Protein Vancomycin Trough Rheumatoid Factor Complement C4 Miscellaneous Test Crossmatch 09/10/16 09/10/16 09/10/16 13:17 17:20 23:32 WBC RBC Hgb Hct MCV MCH MCHC RDW Plt Count Lymph % (Auto) [place] % (Auto) Lymph # [place] # Baso # Seg Neutrophils % Seg Neuts % (Manual) Lymphocytes % (Manual) Monocytes % (Manual) Eosinophils % (Manual) Basophils % (Manual) Nucleated RBC % Seg Neutrophils # Seg Neutrophils # Man Lymphocytes # (Manual) Monocytes # (Manual) Eosinophils # (Manual) PT INR Fibrinogen dRVVT Confirm Interp Factor V Activity POC ABG pH POC ABG pCO2 POC ABG pO2 ABG pO2 ABG HCO3 ABG Base Excess ABG Hemoglobin Oxyhemoglobin Sodium Potassium Chloride Carbon Dioxide BUN Creatinine Glucose POC Glucose 199 H 186 H Lactic Acid Calcium Phosphorus Magnesium Direct Bilirubin AST ALT Alkaline Phosphatase Lactate Dehydrogenase Troponin T C-Reactive Protein Total Protein Albumin Prealbumin Triglycerides Cholesterol LDL Cholesterol Direct HDL Cholesterol Urine pH Urine WBC (Auto) Urine Creatinine Urine Total Protein Fluid Total Protein Vancomycin Trough Rheumatoid Factor Complement C4 Miscellaneous Test Crossmatch See Detail 09/11/16 09/11/1609/11/17 05:10 05:10 05:17 WBC 28.4 H RBC Hgb 9.2 L Hct 29.3 L D MCV 73 L MCH 23 L MCHC RDW 18.9 H Plt Count 452 H Lymph % (Auto) [place] % (Auto) Lymph # [place] # Baso # Seg Neutrophils % Seg Neuts % (Manual) 89.5 H Lymphocytes % (Manual) 2.0 L Monocytes % (Manual) Eosinophils % (Manual) Basophils % (Manual) Nucleated RBC % Seg Neutrophils # Seg Neutrophils # Man 25.4 H Lymphocytes # (Manual) 0.6 L Monocytes # (Manual) 1.3 H Eosinophils # (Manual) PT INR Fibrinogen dRVVT Confirm Interp Factor V Activity POC ABG pH POC ABG pCO2 POC ABG pO2 ABG pO2 ABG HCO3 ABG Base Excess ABG Hemoglobin Oxyhemoglobin Sodium 136 L Potassium Chloride Carbon Dioxide 18 L BUN 107 H Creatinine 2.6 H Glucose 187 H POC Glucose 230 H Lactic Acid Calcium 8.3 L Phosphorus Magnesium Direct Bilirubin AST ALT Alkaline Phosphatase Lactate Dehydrogenase Troponin T C-Reactive Protein Total Protein Albumin Prealbumin Triglycerides Cholesterol LDL Cholesterol Direct HDL Cholesterol Urine pH Urine WBC (Auto) Urine Creatinine Urine Total Protein Fluid Total Protein Vancomycin Trough Rheumatoid Factor Complement C4 Miscellaneous Test Crossmatch 09/11/16 09/11/16 09/11/16 05:55 12:02 17:32 WBC RBC Hgb Hct MCV MCH MCHC RDW Plt Count Lymph % (Auto) [place] % (Auto) Lymph # [place] # Baso # Seg Neutrophils % Seg Neuts % (Manual) Lymphocytes % (Manual) Monocytes % (Manual) Eosinophils % (Manual) Basophils % (Manual) Nucleated RBC % Seg Neutrophils # Seg Neutrophils # Man Lymphocytes # (Manual) Monocytes # (Manual) Eosinophils # (Manual) PT INR Fibrinogen dRVVT Confirm Interp Factor V Activity POC ABG pH POC ABG pCO2 33.8 L POC ABG pO2 ABG pO2 ABG HCO3 ABG Base Excess ABG Hemoglobin Oxyhemoglobin Sodium Potassium Chloride Carbon Dioxide BUN Creatinine Glucose POC Glucose 191 H 239 H Lactic Acid Calcium Phosphorus Magnesium Direct Bilirubin AST ALT Alkaline Phosphatase Lactate Dehydrogenase Troponin T C-Reactive Protein Total Protein Albumin Prealbumin Triglycerides Cholesterol LDL Cholesterol Direct HDL Cholesterol Urine pH Urine WBC (Auto) Urine Creatinine Urine Total Protein Fluid Total Protein Vancomycin Trough Rheumatoid Factor Complement C4 Miscellaneous Test Crossmatch 09/11/16 09/12/16 09/12/16 23:52 05:09 05:32 WBC RBC Hgb Hct MCV MCH MCHC RDW Plt Count Lymph % (Auto) [place] % (Auto) Lymph # [place] # Baso # Seg Neutrophils % Seg Neuts % (Manual) Lymphocytes % (Manual) Monocytes % (Manual) Eosinophils % (Manual) Basophils % (Manual) Nucleated RBC % Seg Neutrophils # Seg Neutrophils # Man Lymphocytes # (Manual) Monocytes # (Manual) Eosinophils # (Manual) PT INR Fibrinogen dRVVT Confirm Interp Factor V Activity POC ABG pH POC ABG pCO2 34.6 L POC ABG pO2 ABG pO2 ABG HCO3 ABG Base Excess ABG Hemoglobin Oxyhemoglobin Sodium Potassium Chloride Carbon Dioxide BUN Creatinine Glucose POC Glucose 265 H 184 H Lactic Acid Calcium Phosphorus Magnesium Direct Bilirubin AST ALT Alkaline Phosphatase Lactate Dehydrogenase Troponin T C-Reactive Protein Total Protein Albumin Prealbumin Triglycerides Cholesterol LDL Cholesterol Direct HDL Cholesterol Urine pH Urine WBC (Auto) Urine Creatinine Urine Total Protein Fluid Total Protein Vancomycin Trough Rheumatoid Factor Complement C4 Miscellaneous Test Crossmatch 09/12/16 09/12/16 09/12/16 06:45 06:45 07:22 WBC 31.7 H RBC 3.54 L Hgb 8.3 L Hct 25.9 L MCV 73 L MCH 23 L MCHC RDW 18.9 H Plt Count Lymph % (Auto) [place] % (Auto) Lymph # [place] # Baso # Seg Neutrophils % Seg Neuts % (Manual) 88.5 H Lymphocytes % (Manual) 4.5 L Monocytes % (Manual) Eosinophils % (Manual) Basophils % (Manual) Nucleated RBC % Seg Neutrophils # Seg Neutrophils # Man 28.1 H Lymphocytes # (Manual) Monocytes # (Manual) 1.0 H Eosinophils # (Manual) PT INR Fibrinogen dRVVT Confirm Interp Factor V Activity POC ABG pH POC ABG pCO2 POC ABG pO2 ABG pO2 ABG HCO3 ABG Base Excess ABG Hemoglobin Oxyhemoglobin Sodium Potassium Chloride Carbon Dioxide 20 L BUN 115 H Creatinine 2.7 H Glucose 165 H POC Glucose Lactic Acid Calcium 8.0 L Phosphorus Magnesium Direct Bilirubin AST ALT Alkaline Phosphatase Lactate Dehydrogenase Troponin T C-Reactive Protein Total Protein Albumin Prealbumin Triglycerides 217 H Cholesterol LDL Cholesterol Direct HDL Cholesterol Urine pH Urine WBC (Auto) Urine Creatinine Urine Total Protein Fluid Total Protein Vancomycin Trough Rheumatoid Factor Complement C4 Miscellaneous Test Crossmatch 09/12/16 09/12/16 09/12/16 07:22 09:59 12:21 WBC RBC Hgb Hct MCV MCH MCHC RDW Plt Count Lymph % (Auto) [place] % (Auto) Lymph # [place] # Baso # Seg Neutrophils % Seg Neuts % (Manual) Lymphocytes % (Manual) Monocytes % (Manual) Eosinophils % (Manual) Basophils % (Manual) Nucleated RBC % Seg Neutrophils # Seg Neutrophils # Man Lymphocytes # (Manual) Monocytes # (Manual) Eosinophils # (Manual) PT INR Fibrinogen dRVVT Confirm Interp Positive H Factor V Activity POC ABG pH POC ABG pCO2 POC ABG pO2 ABG pO2 ABG HCO3 ABG Base Excess ABG Hemoglobin Oxyhemoglobin Sodium Potassium Chloride Carbon Dioxide BUN Creatinine Glucose POC Glucose 224 H Lactic Acid Calcium Phosphorus Magnesium Direct Bilirubin AST ALT Alkaline Phosphatase Lactate Dehydrogenase Troponin T C-Reactive Protein 1.70 H Total Protein Albumin Prealbumin Triglycerides Cholesterol LDL Cholesterol Direct HDL Cholesterol Urine pH Urine WBC (Auto) Urine Creatinine Urine Total Protein Fluid Total Protein Vancomycin Trough Rheumatoid Factor Complement C4 Miscellaneous Test Crossmatch 09/12/16 09/12/16 09/13/16 16:51 23:28 04:00 WBC 45.0 H* RBC Hgb 9.4 L Hct MCV 75 L MCH 23 L MCHC RDW 19.0 H Plt Count 470 H Lymph % (Auto) [place] % (Auto) Lymph # [place] # Baso # Seg Neutrophils % Seg Neuts % (Manual) 89.0 H Lymphocytes % (Manual) 5.0 L Monocytes % (Manual) Eosinophils % (Manual) Basophils % (Manual) Nucleated RBC % Seg Neutrophils # Seg Neutrophils # Man 40.1 H Lymphocytes # (Manual) Monocytes # (Manual) Eosinophils # (Manual) PT INR Fibrinogen dRVVT Confirm Interp Factor V Activity POC ABG pH POC ABG pCO2 POC ABG pO2 ABG pO2 ABG HCO3 ABG Base Excess ABG Hemoglobin Oxyhemoglobin Sodium Potassium Chloride Carbon Dioxide BUN Creatinine Glucose POC Glucose 169 H 150 H Lactic Acid Calcium Phosphorus Magnesium Direct Bilirubin AST ALT Alkaline Phosphatase Lactate Dehydrogenase Troponin T C-Reactive Protein Total Protein Albumin Prealbumin Triglycerides Cholesterol LDL Cholesterol Direct HDL Cholesterol Urine pH Urine WBC (Auto) Urine Creatinine Urine Total Protein Fluid Total Protein Vancomycin Trough Rheumatoid Factor Complement C4 Miscellaneous Test Crossmatch 09/13/16 09/13/16 09/13/16 04:00 11:26 17:31 WBC RBC Hgb Hct MCV MCH MCHC RDW Plt Count Lymph % (Auto) [place] % (Auto) Lymph # [place] # Baso # Seg Neutrophils % Seg Neuts % (Manual) Lymphocytes % (Manual) Monocytes % (Manual) Eosinophils % (Manual) Basophils % (Manual) Nucleated RBC % Seg Neutrophils # Seg Neutrophils # Man Lymphocytes # (Manual) Monocytes # (Manual) Eosinophils # (Manual) PT INR Fibrinogen dRVVT Confirm Interp Factor V Activity POC ABG pH POC ABG pCO2 POC ABG pO2 ABG pO2 ABG HCO3 ABG Base Excess ABG Hemoglobin Oxyhemoglobin Sodium Potassium Chloride Carbon Dioxide 20 L BUN 116 H Creatinine 3.0 H Glucose 172 H POC Glucose 140 H 183 H Lactic Acid Calcium Phosphorus Magnesium Direct Bilirubin AST ALT Alkaline Phosphatase Lactate Dehydrogenase Troponin T C-Reactive Protein Total Protein 6.2 L Albumin 2.9 L Prealbumin Triglycerides Cholesterol LDL Cholesterol Direct HDL Cholesterol Urine pH Urine WBC (Auto) Urine Creatinine Urine Total Protein Fluid Total Protein Vancomycin Trough Rheumatoid Factor Complement C4 Miscellaneous Test Crossmatch 09/13/16 09/14/16 09/14/16 23:23 04:06 04:07 WBC 29.4 H RBC Hgb 8.9 L Hct 27.3 L MCV 75 L MCH 24 L MCHC RDW 19.1 H Plt Count Lymph % (Auto) [place] % (Auto) Lymph # [place] # Baso # Seg Neutrophils % Seg Neuts % (Manual) 84.0 H Lymphocytes % (Manual) 6.0 L Monocytes % (Manual) 9.0 H Eosinophils % (Manual) Basophils % (Manual) Nucleated RBC % Seg Neutrophils # Seg Neutrophils # Man 24.7 H Lymphocytes # (Manual) Monocytes # (Manual) 2.6 H Eosinophils # (Manual) PT INR Fibrinogen dRVVT Confirm Interp Factor V Activity POC ABG pH 7.342 L POC ABG pCO2 POC ABG pO2 116 H ABG pO2 ABG HCO3 ABG Base Excess ABG Hemoglobin Oxyhemoglobin Sodium Potassium Chloride Carbon Dioxide BUN Creatinine Glucose POC Glucose 154 H Lactic Acid Calcium Phosphorus Magnesium Direct Bilirubin AST ALT Alkaline Phosphatase Lactate Dehydrogenase Troponin T C-Reactive Protein Total Protein Albumin Prealbumin Triglycerides Cholesterol LDL Cholesterol Direct HDL Cholesterol Urine pH Urine WBC (Auto) Urine Creatinine Urine Total Protein Fluid Total Protein Vancomycin Trough Rheumatoid Factor Complement C4 Miscellaneous Test Crossmatch 09/14/16 09/14/16 09/14/16 04:07 05:29 12:19 WBC RBC Hgb Hct MCV MCH MCHC RDW Plt Count Lymph % (Auto) [place] % (Auto) Lymph # [place] # Baso # Seg Neutrophils % Seg Neuts % (Manual) Lymphocytes % (Manual) Monocytes % (Manual) Eosinophils % (Manual) Basophils % (Manual) Nucleated RBC % Seg Neutrophils # Seg Neutrophils # Man Lymphocytes # (Manual) Monocytes # (Manual) Eosinophils # (Manual) PT INR Fibrinogen dRVVT Confirm Interp Factor V Activity POC ABG pH POC ABG pCO2 POC ABG pO2 ABG pO2 ABG HCO3 ABG Base Excess ABG Hemoglobin Oxyhemoglobin Sodium 136 L Potassium Chloride Carbon Dioxide 18 L BUN 121 H Creatinine 2.8 H Glucose 214 H POC Glucose 239 H 181 H Lactic Acid Calcium Phosphorus Magnesium Direct Bilirubin AST ALT Alkaline Phosphatase Lactate Dehydrogenase Troponin T C-Reactive Protein Total Protein Albumin Prealbumin Triglycerides Cholesterol LDL Cholesterol Direct HDL Cholesterol Urine pH Urine WBC (Auto) Urine Creatinine Urine Total Protein Fluid Total Protein Vancomycin Trough Rheumatoid Factor Complement C4 Miscellaneous Test Crossmatch 09/14/16 09/14/16 09/15/16 18:12 23:37 05:00 WBC 26.1 H RBC 3.05 L Hgb 7.2 L Hct 22.9 L MCV 75 L MCH 24 L MCHC RDW 19.0 H Plt Count Lymph % (Auto) [place] % (Auto) Lymph # [place] # Baso # Seg Neutrophils % Seg Neuts % (Manual) Lymphocytes % (Manual) Monocytes % (Manual) Eosinophils % (Manual) Basophils % (Manual) Nucleated RBC % Seg Neutrophils # Seg Neutrophils # Man Lymphocytes # (Manual) Monocytes # (Manual) Eosinophils # (Manual) PT INR Fibrinogen dRVVT Confirm Interp Factor V Activity POC ABG pH POC ABG pCO2 POC ABG pO2 ABG pO2 ABG HCO3 ABG Base Excess ABG Hemoglobin Oxyhemoglobin Sodium Potassium Chloride Carbon Dioxide BUN Creatinine Glucose POC Glucose 266 H 154 H Lactic Acid Calcium Phosphorus Magnesium Direct Bilirubin AST ALT Alkaline Phosphatase Lactate Dehydrogenase Troponin T C-Reactive Protein Total Protein Albumin Prealbumin Triglycerides Cholesterol LDL Cholesterol Direct HDL Cholesterol Urine pH Urine WBC (Auto) Urine Creatinine Urine Total Protein Fluid Total Protein Vancomycin Trough Rheumatoid Factor Complement C4 Miscellaneous Test Crossmatch 09/15/16 09/15/16 09/15/16 05:00 05:17 12:45 WBC RBC Hgb Hct MCV MCH MCHC RDW Plt Count Lymph % (Auto) [place] % (Auto) Lymph # [place] # Baso # Seg Neutrophils % Seg Neuts % (Manual) Lymphocytes % (Manual) Monocytes % (Manual) Eosinophils % (Manual) Basophils % (Manual) Nucleated RBC % Seg Neutrophils # Seg Neutrophils # Man Lymphocytes # (Manual) Monocytes # (Manual) Eosinophils # (Manual) PT INR Fibrinogen dRVVT Confirm Interp Factor V Activity POC ABG pH POC ABG pCO2 POC ABG pO2 ABG pO2 ABG HCO3 ABG Base Excess ABG Hemoglobin Oxyhemoglobin Sodium Potassium 5.2 H Chloride Carbon Dioxide 18 L BUN 139 H Creatinine 3.7 H Glucose 227 H POC Glucose 226 H 244 H Lactic Acid Calcium 8.3 L Phosphorus Magnesium Direct Bilirubin AST ALT Alkaline Phosphatase Lactate Dehydrogenase Troponin T C-Reactive Protein Total Protein Albumin Prealbumin Triglycerides Cholesterol LDL Cholesterol Direct HDL Cholesterol Urine pH Urine WBC (Auto) Urine Creatinine Urine Total Protein Fluid Total Protein Vancomycin Trough Rheumatoid Factor Complement C4 Miscellaneous Test Crossmatch 09/15/16 09/15/16 09/15/16 14:32 17:33 23:35 WBC RBC Hgb Hct MCV MCH MCHC RDW Plt Count Lymph % (Auto) [place] % (Auto) Lymph # [place] # Baso # Seg Neutrophils % Seg Neuts % (Manual) Lymphocytes % (Manual) Monocytes % (Manual) Eosinophils % (Manual) Basophils % (Manual) Nucleated RBC % Seg Neutrophils # Seg Neutrophils # Man Lymphocytes # (Manual) Monocytes # (Manual) Eosinophils # (Manual) PT INR Fibrinogen dRVVT Confirm Interp Factor V Activity POC ABG pH POC ABG pCO2 27.7 L POC ABG pO2 120 H ABG pO2 ABG HCO3 ABG Base Excess ABG Hemoglobin Oxyhemoglobin Sodium Potassium Chloride Carbon Dioxide BUN Creatinine Glucose POC Glucose 232 H 167 H Lactic Acid Calcium Phosphorus Magnesium Direct Bilirubin AST ALT Alkaline Phosphatase Lactate Dehydrogenase Troponin T C-Reactive Protein Total Protein Albumin Prealbumin Triglycerides Cholesterol LDL Cholesterol Direct HDL Cholesterol Urine pH Urine WBC (Auto) Urine Creatinine Urine Total Protein Fluid Total Protein Vancomycin Trough Rheumatoid Factor Complement C4 Miscellaneous Test Crossmatch 09/16/16 09/16/16 09/16/16 03:58 10:27 10:27 WBC 19.0 H RBC 2.77 L Hgb 6.5 L Hct 20.9 L MCV 76 L MCH 23 L MCHC RDW 19.3 H Plt Count Lymph % (Auto) 11.0 L [place] % (Auto) Lymph # [place] # 1.1 H Baso # Seg Neutrophils % 82.5 H Seg Neuts % (Manual) Lymphocytes % (Manual) Monocytes % (Manual) Eosinophils % (Manual) Basophils % (Manual) Nucleated RBC % Seg Neutrophils # 15.7 H Seg Neutrophils # Man Lymphocytes # (Manual) Monocytes # (Manual) Eosinophils # (Manual) PT INR Fibrinogen dRVVT Confirm Interp Factor V Activity POC ABG pH POC ABG pCO2 POC ABG pO2 ABG pO2 ABG HCO3 ABG Base Excess ABG Hemoglobin Oxyhemoglobin Sodium Potassium Chloride 109.3 H Carbon Dioxide 18 L BUN 139 H Creatinine 4.1 H Glucose 144 H POC Glucose 146 H Lactic Acid Calcium 8.1 L Phosphorus Magnesium Direct Bilirubin AST ALT Alkaline Phosphatase Lactate Dehydrogenase Troponin T C-Reactive Protein Total Protein Albumin Prealbumin Triglycerides Cholesterol LDL Cholesterol Direct HDL Cholesterol Urine pH Urine WBC (Auto) Urine Creatinine Urine Total Protein Fluid Total Protein Vancomycin Trough Rheumatoid Factor Complement C4 Miscellaneous Test Crossmatch 09/16/16 09/16/16 09/16/16 12:04 12:10 13:55 WBC RBC Hgb Hct MCV MCH MCHC RDW Plt Count Lymph % (Auto) [place] % (Auto) Lymph # [place] # Baso # Seg Neutrophils % Seg Neuts % (Manual) Lymphocytes % (Manual) Monocytes % (Manual) Eosinophils % (Manual) Basophils % (Manual) Nucleated RBC % Seg Neutrophils # Seg Neutrophils # Man Lymphocytes # (Manual) Monocytes # (Manual) Eosinophils # (Manual) PT INR Fibrinogen dRVVT Confirm Interp Factor V Activity POC ABG pH POC ABG pCO2 32.9 L POC ABG pO2 ABG pO2 ABG HCO3 ABG Base Excess ABG Hemoglobin Oxyhemoglobin Sodium Potassium Chloride Carbon Dioxide BUN Creatinine Glucose POC Glucose 185 H Lactic Acid Calcium Phosphorus Magnesium Direct Bilirubin AST ALT Alkaline Phosphatase Lactate Dehydrogenase Troponin T C-Reactive Protein Total Protein Albumin Prealbumin Triglycerides Cholesterol LDL Cholesterol Direct HDL Cholesterol Urine pH Urine WBC (Auto) Urine Creatinine Urine Total Protein Fluid Total Protein Vancomycin Trough Rheumatoid Factor Complement C4 Miscellaneous Test Crossmatch See Detail 09/16/16 09/16/16 09/16/16 17:55 19:19 23:48 WBC RBC Hgb Hct MCV MCH MCHC RDW Plt Count Lymph % (Auto) [place] % (Auto) Lymph # [place] # Baso # Seg Neutrophils % Seg Neuts % (Manual) Lymphocytes % (Manual) Monocytes % (Manual) Eosinophils % (Manual) Basophils % (Manual) Nucleated RBC % Seg Neutrophils # Seg Neutrophils # Man Lymphocytes # (Manual) Monocytes # (Manual) Eosinophils # (Manual) PT INR Fibrinogen dRVVT Confirm Interp Factor V Activity POC ABG pH POC ABG pCO2 POC ABG pO2 ABG pO2 ABG HCO3 ABG Base Excess ABG Hemoglobin Oxyhemoglobin Sodium Potassium Chloride Carbon Dioxide BUN Creatinine Glucose POC Glucose 222 H 107 H Lactic Acid Calcium Phosphorus Magnesium Direct Bilirubin AST ALT Alkaline Phosphatase Lactate Dehydrogenase Troponin T C-Reactive Protein Total Protein Albumin Prealbumin Triglycerides Cholesterol LDL Cholesterol Direct HDL Cholesterol Urine pH Urine WBC (Auto) Urine Creatinine 47.4 H Urine Total Protein 16 H Fluid Total Protein Vancomycin Trough Rheumatoid Factor Complement C4 Miscellaneous Test Crossmatch 09/17/16 09/17/16 09/17/16 03:45 03:45 04:55 WBC 19.6 H RBC 3.41 L Hgb 8.5 L Hct 26.7 L MCV 78 L MCH 25 L MCHC RDW 19.9 H Plt Count Lymph % (Auto) 9.3 L [place] % (Auto) Lymph # [place] # 1.2 H Baso # Seg Neutrophils % 83.9 H Seg Neuts % (Manual) Lymphocytes % (Manual) Monocytes % (Manual) Eosinophils % (Manual) Basophils % (Manual) Nucleated RBC % Seg Neutrophils # 16.4 H Seg Neutrophils # Man Lymphocytes # (Manual) Monocytes # (Manual) Eosinophils # (Manual) PT INR Fibrinogen dRVVT Confirm Interp Factor V Activity POC ABG pH POC ABG pCO2 POC ABG pO2 ABG pO2 ABG HCO3 ABG Base Excess ABG Hemoglobin Oxyhemoglobin Sodium 146 H Potassium 5.1 H Chloride 110.9 H Carbon Dioxide 16 L BUN 146 H Creatinine 4.0 H Glucose 108 H POC Glucose 133 H Lactic Acid Calcium Phosphorus Magnesium 3.00 H Direct Bilirubin AST ALT Alkaline Phosphatase Lactate Dehydrogenase Troponin T C-Reactive Protein Total Protein Albumin Prealbumin Triglycerides Cholesterol LDL Cholesterol Direct HDL Cholesterol Urine pH Urine WBC (Auto) Urine Creatinine Urine Total Protein Fluid Total Protein Vancomycin Trough Rheumatoid Factor Complement C4 Miscellaneous Test Crossmatch 09/17/16 09/17/16 09/17/16 11:15 17:33 23:47 WBC RBC Hgb Hct MCV MCH MCHC RDW Plt Count Lymph % (Auto) [place] % (Auto) Lymph # [place] # Baso # Seg Neutrophils % Seg Neuts % (Manual) Lymphocytes % (Manual) Monocytes % (Manual) Eosinophils % (Manual) Basophils % (Manual) Nucleated RBC % Seg Neutrophils # Seg Neutrophils # Man Lymphocytes # (Manual) Monocytes # (Manual) Eosinophils # (Manual) PT INR Fibrinogen dRVVT Confirm Interp Factor V Activity POC ABG pH POC ABG pCO2 POC ABG pO2 ABG pO2 ABG HCO3 ABG Base Excess ABG Hemoglobin Oxyhemoglobin Sodium Potassium Chloride Carbon Dioxide BUN Creatinine Glucose POC Glucose 176 H 246 H 148 H Lactic Acid Calcium Phosphorus Magnesium Direct Bilirubin AST ALT Alkaline Phosphatase Lactate Dehydrogenase Troponin T C-Reactive Protein Total Protein Albumin Prealbumin Triglycerides Cholesterol LDL Cholesterol Direct HDL Cholesterol Urine pH Urine WBC (Auto) Urine Creatinine Urine Total Protein Fluid Total Protein Vancomycin Trough Rheumatoid Factor Complement C4 Miscellaneous Test Crossmatch 09/18/16 09/18/16 09/18/16 05:33 08:31 08:31 WBC 18.0 H RBC 3.17 L Hgb 9.0 L Hct 25.7 L MCV MCH MCHC 35 H RDW 20.4 H Plt Count Lymph % (Auto) [place] % (Auto) Lymph # [place] # Baso # Seg Neutrophils % Seg Neuts % (Manual) Lymphocytes % (Manual) Monocytes % (Manual) Eosinophils % (Manual) Basophils % (Manual) Nucleated RBC % Seg Neutrophils # Seg Neutrophils # Man Lymphocytes # (Manual) Monocytes # (Manual) Eosinophils # (Manual) PT INR Fibrinogen dRVVT Confirm Interp Factor V Activity POC ABG pH POC ABG pCO2 POC ABG pO2 ABG pO2 ABG HCO3 ABG Base Excess ABG Hemoglobin Oxyhemoglobin Sodium Potassium Chloride Carbon Dioxide 15 L BUN 124 H Creatinine 3.8 H Glucose POC Glucose 120 H Lactic Acid Calcium 8.1 L Phosphorus Magnesium Direct Bilirubin AST ALT Alkaline Phosphatase Lactate Dehydrogenase Troponin T C-Reactive Protein Total Protein Albumin Prealbumin Triglycerides Cholesterol LDL Cholesterol Direct HDL Cholesterol Urine pH Urine WBC (Auto) Urine Creatinine Urine Total Protein Fluid Total Protein Vancomycin Trough Rheumatoid Factor Complement C4 Miscellaneous Test Crossmatch 09/18/16 09/18/16 09/18/16 12:03 15:34 17:50 WBC RBC Hgb Hct MCV MCH MCHC RDW Plt Count Lymph % (Auto) [place] % (Auto) Lymph # [place] # Baso # Seg Neutrophils % Seg Neuts % (Manual) Lymphocytes % (Manual) Monocytes % (Manual) Eosinophils % (Manual) Basophils % (Manual) Nucleated RBC % Seg Neutrophils # Seg Neutrophils # Man Lymphocytes # (Manual) Monocytes # (Manual) Eosinophils # (Manual) PT INR Fibrinogen dRVVT Confirm Interp Factor V Activity POC ABG pH POC ABG pCO2 25.7 L POC ABG pO2 66 L ABG pO2 ABG HCO3 ABG Base Excess ABG Hemoglobin Oxyhemoglobin Sodium Potassium Chloride Carbon Dioxide BUN Creatinine Glucose POC Glucose 156 H 220 H Lactic Acid Calcium Phosphorus Magnesium Direct Bilirubin AST ALT Alkaline Phosphatase Lactate Dehydrogenase Troponin T C-Reactive Protein Total Protein Albumin Prealbumin Triglycerides Cholesterol LDL Cholesterol Direct HDL Cholesterol Urine pH Urine WBC (Auto) Urine Creatinine Urine Total Protein Fluid Total Protein Vancomycin Trough Rheumatoid Factor Complement C4 Miscellaneous Test Crossmatch 09/19/16 09/19/16 09/19/16 06:21 09:50 09:50 WBC 17.1 H RBC 3.49 L Hgb 9.0 L Hct 28.1 L MCV MCH 26 L MCHC RDW 20.8 H Plt Count Lymph % (Auto) 11.5 L [place] % (Auto) 7.5 H Lymph # [place] # 1.3 H Baso # Seg Neutrophils % 79.8 H Seg Neuts % (Manual) Lymphocytes % (Manual) Monocytes % (Manual) Eosinophils % (Manual) Basophils % (Manual) Nucleated RBC % Seg Neutrophils # 13.7 H Seg Neutrophils # Man Lymphocytes # (Manual) Monocytes # (Manual) Eosinophils # (Manual) PT INR Fibrinogen dRVVT Confirm Interp Factor V Activity POC ABG pH POC ABG pCO2 POC ABG pO2 ABG pO2 ABG HCO3 ABG Base Excess ABG Hemoglobin Oxyhemoglobin Sodium Potassium Chloride 108.6 H Carbon Dioxide 15 L BUN 125 H Creatinine 4.1 H Glucose 124 H POC Glucose 119 H Lactic Acid Calcium Phosphorus Magnesium Direct Bilirubin AST ALT Alkaline Phosphatase Lactate Dehydrogenase Troponin T C-Reactive Protein Total Protein Albumin Prealbumin Triglycerides Cholesterol LDL Cholesterol Direct HDL Cholesterol Urine pH Urine WBC (Auto) Urine Creatinine Urine Total Protein Fluid Total Protein Vancomycin Trough Rheumatoid Factor Complement C4 Miscellaneous Test Crossmatch 09/19/16 09/19/16 09/19/16 11:25 17:53 23:36 WBC RBC Hgb Hct MCV MCH MCHC RDW Plt Count Lymph % (Auto) [place] % (Auto) Lymph # [place] # Baso # Seg Neutrophils % Seg Neuts % (Manual) Lymphocytes % (Manual) Monocytes % (Manual) Eosinophils % (Manual) Basophils % (Manual) Nucleated RBC % Seg Neutrophils # Seg Neutrophils # Man Lymphocytes # (Manual) Monocytes # (Manual) Eosinophils # (Manual) PT INR Fibrinogen dRVVT Confirm Interp Factor V Activity POC ABG pH POC ABG pCO2 POC ABG pO2 ABG pO2 ABG HCO3 ABG Base Excess ABG Hemoglobin Oxyhemoglobin Sodium Potassium Chloride Carbon Dioxide BUN Creatinine Glucose POC Glucose 160 H 245 H 121 H Lactic Acid Calcium Phosphorus Magnesium Direct Bilirubin AST ALT Alkaline Phosphatase Lactate Dehydrogenase Troponin T C-Reactive Protein Total Protein Albumin Prealbumin Triglycerides Cholesterol LDL Cholesterol Direct HDL Cholesterol Urine pH Urine WBC (Auto) Urine Creatinine Urine Total Protein Fluid Total Protein Vancomycin Trough Rheumatoid Factor Complement C4 Miscellaneous Test Crossmatch 09/20/16 09/20/16 09/20/16 04:10 04:10 04:10 WBC 17.0 H RBC 3.21 L Hgb 8.2 L Hct 25.5 L MCV MCH 26 L MCHC RDW 20.9 H Plt Count Lymph % (Auto) [place] % (Auto) Lymph # [place] # Baso # Seg Neutrophils % Seg Neuts % (Manual) Lymphocytes % (Manual) Monocytes % (Manual) Eosinophils % (Manual) Basophils % (Manual) Nucleated RBC % Seg Neutrophils # Seg Neutrophils # Man Lymphocytes # (Manual) Monocytes # (Manual) Eosinophils # (Manual) PT INR Fibrinogen dRVVT Confirm Interp Factor V Activity POC ABG pH POC ABG pCO2 POC ABG pO2 ABG pO2 ABG HCO3 ABG Base Excess ABG Hemoglobin Oxyhemoglobin Sodium Potassium Chloride 111.0 H Carbon Dioxide 16 L BUN 129 H Creatinine 3.7 H Glucose 115 H POC Glucose Lactic Acid Calcium 8.2 L Phosphorus Magnesium Direct Bilirubin AST ALT Alkaline Phosphatase Lactate Dehydrogenase Troponin T C-Reactive Protein Total Protein Albumin Prealbumin Triglycerides 243 H Cholesterol LDL Cholesterol Direct HDL Cholesterol Urine pH Urine WBC (Auto) Urine Creatinine Urine Total Protein Fluid Total Protein Vancomycin Trough Rheumatoid Factor Complement C4 Miscellaneous Test Crossmatch 09/20/16 09/20/16 09/20/16 05:40 11:52 16:50 WBC RBC Hgb Hct MCV MCH MCHC RDW Plt Count Lymph % (Auto) [place] % (Auto) Lymph # [place] # Baso # Seg Neutrophils % Seg Neuts % (Manual) Lymphocytes % (Manual) Monocytes % (Manual) Eosinophils % (Manual) Basophils % (Manual) Nucleated RBC % Seg Neutrophils # Seg Neutrophils # Man Lymphocytes # (Manual) Monocytes # (Manual) Eosinophils # (Manual) PT INR Fibrinogen dRVVT Confirm Interp Factor V Activity POC ABG pH POC ABG pCO2 POC ABG pO2 ABG pO2 ABG HCO3 ABG Base Excess ABG Hemoglobin Oxyhemoglobin Sodium Potassium Chloride Carbon Dioxide BUN Creatinine Glucose POC Glucose 131 H 183 H 236 H Lactic Acid Calcium Phosphorus Magnesium Direct Bilirubin AST ALT Alkaline Phosphatase Lactate Dehydrogenase Troponin T C-Reactive Protein Total Protein Albumin Prealbumin Triglycerides Cholesterol LDL Cholesterol Direct HDL Cholesterol Urine pH Urine WBC (Auto) Urine Creatinine Urine Total Protein Fluid Total Protein Vancomycin Trough Rheumatoid Factor Complement C4 Miscellaneous Test Crossmatch 09/20/16 09/21/16 09/21/16 23:51 03:30 04:44 WBC RBC Hgb Hct MCV MCH MCHC RDW Plt Count Lymph % (Auto) [place] % (Auto) Lymph # [place] # Baso # Seg Neutrophils % Seg Neuts % (Manual) Lymphocytes % (Manual) Monocytes % (Manual) Eosinophils % (Manual) Basophils % (Manual) Nucleated RBC % Seg Neutrophils # Seg Neutrophils # Man Lymphocytes # (Manual) Monocytes # (Manual) Eosinophils # (Manual) PT INR Fibrinogen dRVVT Confirm Interp Factor V Activity POC ABG pH POC ABG pCO2 POC ABG pO2 ABG pO2 ABG HCO3 ABG Base Excess ABG Hemoglobin Oxyhemoglobin Sodium Potassium Chloride Carbon Dioxide BUN Creatinine Glucose POC Glucose 114 H 141 H Lactic Acid Calcium Phosphorus Magnesium 2.70 H Direct Bilirubin AST ALT Alkaline Phosphatase Lactate Dehydrogenase Troponin T C-Reactive Protein Total Protein Albumin Prealbumin Triglycerides Cholesterol LDL Cholesterol Direct HDL Cholesterol Urine pH Urine WBC (Auto) Urine Creatinine Urine Total Protein Fluid Total Protein Vancomycin Trough Rheumatoid Factor Complement C4 Miscellaneous Test Crossmatch 09/21/16 09/21/16 09/21/16 07:45 07:45 10:01 WBC 13.8 H RBC 2.94 L Hgb 7.5 L Hct 23.5 L MCV MCH 26 L MCHC RDW 21.2 H Plt Count Lymph % (Auto) 6.9 L [place] % (Auto) 9.4 H Lymph # 0.9 L [place] # 1.3 H Baso # Seg Neutrophils % 83.2 H Seg Neuts % (Manual) Lymphocytes % (Manual) Monocytes % (Manual) Eosinophils % (Manual) Basophils % (Manual) Nucleated RBC % Seg Neutrophils # 11.5 H Seg Neutrophils # Man Lymphocytes # (Manual) Monocytes # (Manual) Eosinophils # (Manual) PT INR Fibrinogen dRVVT Confirm Interp Factor V Activity POC ABG pH 7.308 L POC ABG pCO2 31.9 L POC ABG pO2 148 H ABG pO2 ABG HCO3 ABG Base Excess ABG Hemoglobin Oxyhemoglobin Sodium 147 H Potassium Chloride 114.2 H Carbon Dioxide 15 L BUN 120 H Creatinine 3.9 H Glucose 156 H POC Glucose Lactic Acid Calcium 8.2 L Phosphorus Magnesium Direct Bilirubin AST ALT Alkaline Phosphatase Lactate Dehydrogenase Troponin T C-Reactive Protein Total Protein Albumin Prealbumin Triglycerides Cholesterol LDL Cholesterol Direct HDL Cholesterol Urine pH Urine WBC (Auto) Urine Creatinine Urine Total Protein Fluid Total Protein Vancomycin Trough Rheumatoid Factor Complement C4 Miscellaneous Test Crossmatch 09/21/16 09/21/16 09/21/16 12:00 12:03 13:00 WBC RBC Hgb Hct MCV MCH MCHC RDW Plt Count Lymph % (Auto) [place] % (Auto) Lymph # [place] # Baso # Seg Neutrophils % Seg Neuts % (Manual) Lymphocytes % (Manual) Monocytes % (Manual) Eosinophils % (Manual) Basophils % (Manual) Nucleated RBC % Seg Neutrophils # Seg Neutrophils # Man Lymphocytes # (Manual) Monocytes # (Manual) Eosinophils # (Manual) PT INR Fibrinogen dRVVT Confirm Interp Factor V Activity POC ABG pH POC ABG pCO2 POC ABG pO2 ABG pO2 ABG HCO3 ABG Base Excess ABG Hemoglobin Oxyhemoglobin Sodium Potassium Chloride Carbon Dioxide BUN Creatinine Glucose POC Glucose 163 H Lactic Acid Calcium Phosphorus Magnesium Direct Bilirubin AST ALT Alkaline Phosphatase Lactate Dehydrogenase Troponin T C-Reactive Protein Total Protein Albumin Prealbumin Triglycerides Cholesterol LDL Cholesterol Direct HDL Cholesterol Urine pH Urine WBC (Auto) Urine Creatinine 54.8 H Urine Total Protein Fluid Total Protein Vancomycin Trough 2.3 L Rheumatoid Factor Complement C4 Miscellaneous Test Crossmatch 09/21/16 09/21/16 09/22/16 16:51 23:17 06:27 WBC RBC Hgb Hct MCV MCH MCHC RDW Plt Count Lymph % (Auto) [place] % (Auto) Lymph # [place] # Baso # Seg Neutrophils % Seg Neuts % (Manual) Lymphocytes % (Manual) Monocytes % (Manual) Eosinophils % (Manual) Basophils % (Manual) Nucleated RBC % Seg Neutrophils # Seg Neutrophils # Man Lymphocytes # (Manual) Monocytes # (Manual) Eosinophils # (Manual) PT INR Fibrinogen dRVVT Confirm Interp Factor V Activity POC ABG pH POC ABG pCO2 POC ABG pO2 ABG pO2 ABG HCO3 ABG Base Excess ABG Hemoglobin Oxyhemoglobin Sodium Potassium Chloride Carbon Dioxide BUN Creatinine Glucose POC Glucose 206 H 114 H 115 H Lactic Acid Calcium Phosphorus Magnesium Direct Bilirubin AST ALT Alkaline Phosphatase Lactate Dehydrogenase Troponin T C-Reactive Protein Total Protein Albumin Prealbumin Triglycerides Cholesterol LDL Cholesterol Direct HDL Cholesterol Urine pH Urine WBC (Auto) Urine Creatinine Urine Total Protein Fluid Total Protein Vancomycin Trough Rheumatoid Factor Complement C4 Miscellaneous Test Crossmatch 09/22/16 09/22/16 09/22/16 07:50 07:50 12:00 WBC 17.8 H RBC 3.04 L Hgb 8.0 L Hct 24.7 L MCV MCH 26 L MCHC RDW 21.6 H Plt Count Lymph % (Auto) [place] % (Auto) Lymph # [place] # Baso # Seg Neutrophils % Seg Neuts % (Manual) Lymphocytes % (Manual) Monocytes % (Manual) Eosinophils % (Manual) Basophils % (Manual) Nucleated RBC % Seg Neutrophils # Seg Neutrophils # Man Lymphocytes # (Manual) Monocytes # (Manual) Eosinophils # (Manual) PT INR Fibrinogen dRVVT Confirm Interp Factor V Activity POC ABG pH POC ABG pCO2 POC ABG pO2 ABG pO2 ABG HCO3 ABG Base Excess ABG Hemoglobin Oxyhemoglobin Sodium 150 H Potassium Chloride 118.2 H Carbon Dioxide 14 L BUN 111 H Creatinine 3.7 H Glucose 157 H POC Glucose 183 H Lactic Acid Calcium Phosphorus Magnesium Direct Bilirubin AST ALT Alkaline Phosphatase Lactate Dehydrogenase Troponin T C-Reactive Protein Total Protein Albumin Prealbumin Triglycerides Cholesterol LDL Cholesterol Direct HDL Cholesterol Urine pH Urine WBC (Auto) Urine Creatinine Urine Total Protein Fluid Total Protein Vancomycin Trough Rheumatoid Factor Complement C4 Miscellaneous Test Crossmatch 09/22/16 09/22/16 09/23/16 17:29 23:10 05:00 WBC 19.2 H RBC 3.13 L Hgb 8.0 L Hct 25.2 L MCV MCH 26 L MCHC RDW 22.1 H Plt Count Lymph % (Auto) [place] % (Auto) Lymph # [place] # Baso # Seg Neutrophils % Seg Neuts % (Manual) 92.0 H Lymphocytes % (Manual) 3.0 L Monocytes % (Manual) Eosinophils % (Manual) Basophils % (Manual) Nucleated RBC % Seg Neutrophils # Seg Neutrophils # Man 17.7 H Lymphocytes # (Manual) 0.6 L Monocytes # (Manual) Eosinophils # (Manual) PT INR Fibrinogen dRVVT Confirm Interp Factor V Activity POC ABG pH POC ABG pCO2 POC ABG pO2 ABG pO2 ABG HCO3 ABG Base Excess ABG Hemoglobin Oxyhemoglobin Sodium Potassium Chloride Carbon Dioxide BUN Creatinine Glucose POC Glucose 197 H 169 H Lactic Acid Calcium Phosphorus Magnesium Direct Bilirubin AST ALT Alkaline Phosphatase Lactate Dehydrogenase Troponin T C-Reactive Protein Total Protein Albumin Prealbumin Triglycerides Cholesterol LDL Cholesterol Direct HDL Cholesterol Urine pH Urine WBC (Auto) Urine Creatinine Urine Total Protein Fluid Total Protein Vancomycin Trough Rheumatoid Factor Complement C4 Miscellaneous Test Crossmatch 09/23/16 09/23/16 09/23/16 05:00 05:00 05:10 WBC RBC Hgb Hct MCV MCH MCHC RDW Plt Count Lymph % (Auto) [place] % (Auto) Lymph # [place] # Baso # Seg Neutrophils % Seg Neuts % (Manual) Lymphocytes % (Manual) Monocytes % (Manual) Eosinophils % (Manual) Basophils % (Manual) Nucleated RBC % Seg Neutrophils # Seg Neutrophils # Man Lymphocytes # (Manual) Monocytes # (Manual) Eosinophils # (Manual) PT INR Fibrinogen dRVVT Confirm Interp Factor V Activity POC ABG pH POC ABG pCO2 POC ABG pO2 ABG pO2 ABG HCO3 ABG Base Excess ABG Hemoglobin Oxyhemoglobin Sodium 147 H Potassium 3.2 L Chloride 115.7 H Carbon Dioxide 13 L BUN 111 H Creatinine 3.8 H Glucose 194 H POC Glucose 188 H Lactic Acid Calcium 7.3 L D Phosphorus Magnesium Direct Bilirubin AST ALT Alkaline Phosphatase Lactate Dehydrogenase Troponin T C-Reactive Protein 3.20 H Total Protein Albumin Prealbumin Triglycerides Cholesterol LDL Cholesterol Direct HDL Cholesterol Urine pH Urine WBC (Auto) Urine Creatinine Urine Total Protein Fluid Total Protein Vancomycin Trough Rheumatoid Factor Complement C4 Miscellaneous Test Crossmatch 09/23/16 09/23/16 09/23/16 11:37 12:29 18:01 WBC RBC Hgb Hct MCV MCH MCHC RDW Plt Count Lymph % (Auto) [place] % (Auto) Lymph # [place] # Baso # Seg Neutrophils % Seg Neuts % (Manual) Lymphocytes % (Manual) Monocytes % (Manual) Eosinophils % (Manual) Basophils % (Manual) Nucleated RBC % Seg Neutrophils # Seg Neutrophils # Man Lymphocytes # (Manual) Monocytes # (Manual) Eosinophils # (Manual) PT INR Fibrinogen dRVVT Confirm Interp Factor V Activity POC ABG pH POC ABG pCO2 18.9 L POC ABG pO2 143 H ABG pO2 ABG HCO3 ABG Base Excess ABG Hemoglobin Oxyhemoglobin Sodium Potassium Chloride Carbon Dioxide BUN Creatinine Glucose POC Glucose 153 H 108 H Lactic Acid Calcium Phosphorus Magnesium Direct Bilirubin AST ALT Alkaline Phosphatase Lactate Dehydrogenase Troponin T C-Reactive Protein Total Protein Albumin Prealbumin Triglycerides Cholesterol LDL Cholesterol Direct HDL Cholesterol Urine pH Urine WBC (Auto) Urine Creatinine Urine Total Protein Fluid Total Protein Vancomycin Trough Rheumatoid Factor Complement C4 Miscellaneous Test Crossmatch 09/23/16 09/23/16 09/24/16 21:19 23:43 05:16 WBC RBC Hgb Hct MCV MCH MCHC RDW Plt Count Lymph % (Auto) [place] % (Auto) Lymph # [place] # Baso # Seg Neutrophils % Seg Neuts % (Manual) Lymphocytes % (Manual) Monocytes % (Manual) Eosinophils % (Manual) Basophils % (Manual) Nucleated RBC % Seg Neutrophils # Seg Neutrophils # Man Lymphocytes # (Manual) Monocytes # (Manual) Eosinophils # (Manual) PT INR Fibrinogen dRVVT Confirm Interp Factor V Activity POC ABG pH POC ABG pCO2 17.3 L POC ABG pO2 112 H ABG pO2 ABG HCO3 ABG Base Excess ABG Hemoglobin Oxyhemoglobin Sodium Potassium Chloride Carbon Dioxide BUN Creatinine Glucose POC Glucose 143 H 164 H Lactic Acid Calcium Phosphorus Magnesium Direct Bilirubin AST ALT Alkaline Phosphatase Lactate Dehydrogenase Troponin T C-Reactive Protein Total Protein Albumin Prealbumin Triglycerides Cholesterol LDL Cholesterol Direct HDL Cholesterol Urine pH Urine WBC (Auto) Urine Creatinine Urine Total Protein Fluid Total Protein Vancomycin Trough Rheumatoid Factor Complement C4 Miscellaneous Test Crossmatch 09/24/16 09/24/16 09/24/16 05:21 11:58 17:06 WBC RBC Hgb Hct MCV MCH MCHC RDW Plt Count Lymph % (Auto) [place] % (Auto) Lymph # [place] # Baso # Seg Neutrophils % Seg Neuts % (Manual) Lymphocytes % (Manual) Monocytes % (Manual) Eosinophils % (Manual) Basophils % (Manual) Nucleated RBC % Seg Neutrophils # Seg Neutrophils # Man Lymphocytes # (Manual) Monocytes # (Manual) Eosinophils # (Manual) PT INR Fibrinogen dRVVT Confirm Interp Factor V Activity POC ABG pH POC ABG pCO2 POC ABG pO2 ABG pO2 ABG HCO3 ABG Base Excess ABG Hemoglobin Oxyhemoglobin Sodium Potassium Chloride Carbon Dioxide 10 L BUN 103 H Creatinine 4.3 H Glucose 163 H POC Glucose 173 H 167 H Lactic Acid Calcium 6.5 L Phosphorus Magnesium Direct Bilirubin AST ALT Alkaline Phosphatase Lactate Dehydrogenase Troponin T C-Reactive Protein Total Protein Albumin Prealbumin Triglycerides Cholesterol LDL Cholesterol Direct HDL Cholesterol Urine pH Urine WBC (Auto) Urine Creatinine Urine Total Protein Fluid Total Protein Vancomycin Trough Rheumatoid Factor Complement C4 Miscellaneous Test Crossmatch 09/24/16 09/24/16 09/24/16 20:15 21:02 23:48 WBC RBC Hgb Hct MCV MCH MCHC RDW Plt Count Lymph % (Auto) [place] % (Auto) Lymph # [place] # Baso # Seg Neutrophils % Seg Neuts % (Manual) Lymphocytes % (Manual) Monocytes % (Manual) Eosinophils % (Manual) Basophils % (Manual) Nucleated RBC % Seg Neutrophils # Seg Neutrophils # Man Lymphocytes # (Manual) Monocytes # (Manual) Eosinophils # (Manual) PT INR Fibrinogen dRVVT Confirm Interp Factor V Activity POC ABG pH 7.288 L POC ABG pCO2 30.2 L 21.5 L POC ABG pO2 32 L 39 L ABG pO2 ABG HCO3 ABG Base Excess ABG Hemoglobin Oxyhemoglobin Sodium Potassium Chloride Carbon Dioxide BUN Creatinine Glucose POC Glucose 109 H Lactic Acid Calcium Phosphorus Magnesium Direct Bilirubin AST ALT Alkaline Phosphatase Lactate Dehydrogenase Troponin T C-Reactive Protein Total Protein Albumin Prealbumin Triglycerides Cholesterol LDL Cholesterol Direct HDL Cholesterol Urine pH Urine WBC (Auto) Urine Creatinine Urine Total Protein Fluid Total Protein Vancomycin Trough Rheumatoid Factor Complement C4 Miscellaneous Test Crossmatch 09/25/16 09/25/16 09/25/16 04:20 04:20 04:20 WBC RBC 2.58 L Hgb 7.0 L Hct 21.0 L MCV MCH 27 L MCHC RDW 23.8 H Plt Count Lymph % (Auto) [place] % (Auto) Lymph # [place] # Baso # Seg Neutrophils % Seg Neuts % (Manual) Lymphocytes % (Manual) 12.0 L Monocytes % (Manual) Eosinophils % (Manual) 7.0 H Basophils % (Manual) 2.0 H Nucleated RBC % Seg Neutrophils # Seg Neutrophils # Man Lymphocytes # (Manual) 0.9 L Monocytes # (Manual) Eosinophils # (Manual) 0.5 H PT INR Fibrinogen dRVVT Confirm Interp Factor V Activity POC ABG pH POC ABG pCO2 POC ABG pO2 ABG pO2 ABG HCO3 ABG Base Excess ABG Hemoglobin Oxyhemoglobin Sodium Potassium Chloride Carbon Dioxide 15 L BUN 72 H Creatinine 3.8 H Glucose POC Glucose Lactic Acid Calcium 6.0 L Phosphorus 4.60 H Magnesium 1.60 L Direct Bilirubin AST ALT Alkaline Phosphatase Lactate Dehydrogenase Troponin T C-Reactive Protein Total Protein Albumin Prealbumin Triglycerides Cholesterol LDL Cholesterol Direct HDL Cholesterol Urine pH Urine WBC (Auto) Urine Creatinine Urine Total Protein Fluid Total Protein Vancomycin Trough Rheumatoid Factor Complement C4 Miscellaneous Test Crossmatch 09/25/16 09/25/16 09/25/16 04:57 08:02 10:30 WBC RBC Hgb Hct MCV MCH MCHC RDW Plt Count Lymph % (Auto) [place] % (Auto) Lymph # [place] # Baso # Seg Neutrophils % Seg Neuts % (Manual) Lymphocytes % (Manual) Monocytes % (Manual) Eosinophils % (Manual) Basophils % (Manual) Nucleated RBC % Seg Neutrophils # Seg Neutrophils # Man Lymphocytes # (Manual) Monocytes # (Manual) Eosinophils # (Manual) PT INR Fibrinogen dRVVT Confirm Interp Factor V Activity POC ABG pH POC ABG pCO2 24.7 L POC ABG pO2 152 H ABG pO2 ABG HCO3 ABG Base Excess ABG Hemoglobin Oxyhemoglobin Sodium Potassium Chloride Carbon Dioxide BUN Creatinine Glucose POC Glucose 113 H Lactic Acid Calcium Phosphorus Magnesium Direct Bilirubin AST ALT Alkaline Phosphatase Lactate Dehydrogenase Troponin T C-Reactive Protein Total Protein Albumin Prealbumin Triglycerides Cholesterol LDL Cholesterol Direct HDL Cholesterol Urine pH Urine WBC (Auto) Urine Creatinine Urine Total Protein Fluid Total Protein Vancomycin Trough Rheumatoid Factor Complement C4 Miscellaneous Test Crossmatch See Detail 09/25/16 09/25/16 09/25/16 12:05 17:44 23:47 WBC RBC Hgb Hct MCV MCH MCHC RDW Plt Count Lymph % (Auto) [place] % (Auto) Lymph # [place] # Baso # Seg Neutrophils % Seg Neuts % (Manual) Lymphocytes % (Manual) Monocytes % (Manual) Eosinophils % (Manual) Basophils % (Manual) Nucleated RBC % Seg Neutrophils # Seg Neutrophils # Man Lymphocytes # (Manual) Monocytes # (Manual) Eosinophils # (Manual) PT INR Fibrinogen dRVVT Confirm Interp Factor V Activity POC ABG pH POC ABG pCO2 POC ABG pO2 ABG pO2 ABG HCO3 ABG Base Excess ABG Hemoglobin Oxyhemoglobin Sodium Potassium Chloride Carbon Dioxide BUN Creatinine Glucose POC Glucose 117 H 119 H 150 H Lactic Acid Calcium Phosphorus Magnesium Direct Bilirubin AST ALT Alkaline Phosphatase Lactate Dehydrogenase Troponin T C-Reactive Protein Total Protein Albumin Prealbumin Triglycerides Cholesterol LDL Cholesterol Direct HDL Cholesterol Urine pH Urine WBC (Auto) Urine Creatinine Urine Total Protein Fluid Total Protein Vancomycin Trough Rheumatoid Factor Complement C4 Miscellaneous Test Crossmatch 09/26/16 09/26/16 09/26/16 04:25 04:25 04:25 WBC RBC 2.65 L Hgb 7.4 L Hct 21.6 L MCV MCH MCHC RDW 22.5 H Plt Count Lymph % (Auto) [place] % (Auto) Lymph # [place] # Baso # Seg Neutrophils % Seg Neuts % (Manual) Lymphocytes % (Manual) 6.0 L Monocytes % (Manual) Eosinophils % (Manual) 11.0 H Basophils % (Manual) Nucleated RBC % Seg Neutrophils # Seg Neutrophils # Man Lymphocytes # (Manual) 0.4 L Monocytes # (Manual) Eosinophils # (Manual) 0.6 H PT INR Fibrinogen dRVVT Confirm Interp Factor V Activity POC ABG pH POC ABG pCO2 POC ABG pO2 ABG pO2 ABG HCO3 ABG Base Excess ABG Hemoglobin Oxyhemoglobin Sodium Potassium Chloride 97.0 L Carbon Dioxide 19 L BUN 43 H Creatinine 2.6 H Glucose 130 H POC Glucose Lactic Acid 4.40 H* Calcium 6.7 L Phosphorus Magnesium Direct Bilirubin AST ALT Alkaline Phosphatase Lactate Dehydrogenase Troponin T C-Reactive Protein Total Protein Albumin Prealbumin Triglycerides Cholesterol LDL Cholesterol Direct HDL Cholesterol Urine pH Urine WBC (Auto) Urine Creatinine Urine Total Protein Fluid Total Protein Vancomycin Trough Rheumatoid Factor Complement C4 Miscellaneous Test Crossmatch 09/26/16 09/26/16 09/26/16 05:20 11:44 12:12 WBC RBC Hgb Hct MCV MCH MCHC RDW Plt Count Lymph % (Auto) [place] % (Auto) Lymph # [place] # Baso # Seg Neutrophils % Seg Neuts % (Manual) Lymphocytes % (Manual) Monocytes % (Manual) Eosinophils % (Manual) Basophils % (Manual) Nucleated RBC % Seg Neutrophils # Seg Neutrophils # Man Lymphocytes # (Manual) Monocytes # (Manual) Eosinophils # (Manual) PT INR Fibrinogen dRVVT Confirm Interp Factor V Activity POC ABG pH POC ABG pCO2 27.0 L POC ABG pO2 69 L ABG pO2 ABG HCO3 ABG Base Excess ABG Hemoglobin Oxyhemoglobin Sodium Potassium Chloride Carbon Dioxide BUN Creatinine Glucose POC Glucose 121 H 128 H Lactic Acid Calcium Phosphorus Magnesium Direct Bilirubin AST ALT Alkaline Phosphatase Lactate Dehydrogenase Troponin T C-Reactive Protein Total Protein Albumin Prealbumin Triglycerides Cholesterol LDL Cholesterol Direct HDL Cholesterol Urine pH Urine WBC (Auto) Urine Creatinine Urine Total Protein Fluid Total Protein Vancomycin Trough Rheumatoid Factor Complement C4 Miscellaneous Test Crossmatch 09/26/16 09/26/16 09/27/16 18:31 23:40 08:20 WBC RBC Hgb Hct MCV MCH MCHC RDW Plt Count Lymph % (Auto) [place] % (Auto) Lymph # [place] # Baso # Seg Neutrophils % Seg Neuts % (Manual) Lymphocytes % (Manual) Monocytes % (Manual) Eosinophils % (Manual) Basophils % (Manual) Nucleated RBC % Seg Neutrophils # Seg Neutrophils # Man Lymphocytes # (Manual) Monocytes # (Manual) Eosinophils # (Manual) PT INR Fibrinogen dRVVT Confirm Interp Factor V Activity POC ABG pH POC ABG pCO2 POC ABG pO2 ABG pO2 ABG HCO3 ABG Base Excess ABG Hemoglobin Oxyhemoglobin Sodium Potassium Chloride Carbon Dioxide BUN Creatinine Glucose POC Glucose 120 H 133 H Lactic Acid 4.10 H* Calcium Phosphorus Magnesium Direct Bilirubin AST ALT Alkaline Phosphatase Lactate Dehydrogenase Troponin T C-Reactive Protein Total Protein Albumin Prealbumin Triglycerides Cholesterol LDL Cholesterol Direct HDL Cholesterol Urine pH Urine WBC (Auto) Urine Creatinine Urine Total Protein Fluid Total Protein Vancomycin Trough Rheumatoid Factor Complement C4 Miscellaneous Test Crossmatch 09/27/16 09/27/16 09/27/16 11:23 15:00 18:15 WBC RBC Hgb Hct MCV MCH MCHC RDW Plt Count Lymph % (Auto) [place] % (Auto) Lymph # [place] # Baso # Seg Neutrophils % Seg Neuts % (Manual) Lymphocytes % (Manual) Monocytes % (Manual) Eosinophils % (Manual) Basophils % (Manual) Nucleated RBC % Seg Neutrophils # Seg Neutrophils # Man Lymphocytes # (Manual) Monocytes # (Manual) Eosinophils # (Manual) PT INR Fibrinogen dRVVT Confirm Interp Factor V Activity POC ABG pH 7.459 H POC ABG pCO2 27.1 L POC ABG pO2 140 H ABG pO2 ABG HCO3 ABG Base Excess ABG Hemoglobin Oxyhemoglobin Sodium Potassium Chloride Carbon Dioxide BUN Creatinine Glucose POC Glucose 114 H 127 H Lactic Acid Calcium Phosphorus Magnesium Direct Bilirubin AST ALT Alkaline Phosphatase Lactate Dehydrogenase Troponin T C-Reactive Protein Total Protein Albumin Prealbumin Triglycerides Cholesterol LDL Cholesterol Direct HDL Cholesterol Urine pH Urine WBC (Auto) Urine Creatinine Urine Total Protein Fluid Total Protein Vancomycin Trough Rheumatoid Factor Complement C4 Miscellaneous Test Crossmatch 08/10/0609/27/16 09/28/16 Unknown Unknown 03:45 WBC RBC 2.49 L Hgb 6.8 L Hct 20.7 L MCV MCH 27 L MCHC RDW 22.1 H Plt Count Lymph % (Auto) [place] % (Auto) Lymph # [place] # Baso # Seg Neutrophils % Seg Neuts % (Manual) 32.0 L Lymphocytes % (Manual) 12.0 L Monocytes % (Manual) 11.0 H Eosinophils % (Manual) 10.0 H Basophils % (Manual) Nucleated RBC % Seg Neutrophils # Seg Neutrophils # Man Lymphocytes # (Manual) 1.0 L Monocytes # (Manual) 0.9 H Eosinophils # (Manual) 0.8 H PT INR Fibrinogen dRVVT Confirm Interp Factor V Activity POC ABG pH POC ABG pCO2 POC ABG pO2 ABG pO2 ABG HCO3 ABG Base Excess ABG Hemoglobin Oxyhemoglobin Sodium 135 L 135 L Potassium 3.5 L Chloride 93.6 L 94.4 L Carbon Dioxide 17 L 21 L BUN 45 H 28 H Creatinine 3.3 H 2.5 H Glucose 106 H POC Glucose Lactic Acid Calcium 7.3 L 7.1 L Phosphorus Magnesium Direct Bilirubin AST ALT Alkaline Phosphatase Lactate Dehydrogenase Troponin T C-Reactive Protein Total Protein Albumin Prealbumin Triglycerides Cholesterol LDL Cholesterol Direct HDL Cholesterol Urine pH Urine WBC (Auto) Urine Creatinine Urine Total Protein Fluid Total Protein Vancomycin Trough Rheumatoid Factor Complement C4 Miscellaneous Test Crossmatch 09/28/16 09/28/16 09/28/16 03:45 07:25 11:58 WBC 13.3 H RBC 3.01 L Hgb 8.4 L Hct 25.0 L MCV MCH MCHC RDW 20.5 H Plt Count 128 L Lymph % (Auto) [place] % (Auto) Lymph # [place] # Baso # Seg Neutrophils % Seg Neuts % (Manual) Lymphocytes % (Manual) 7.0 L Monocytes % (Manual) Eosinophils % (Manual) 6.0 H Basophils % (Manual) Nucleated RBC % Seg Neutrophils # Seg Neutrophils # Man Lymphocytes # (Manual) 0.9 L Monocytes # (Manual) Eosinophils # (Manual) 0.8 H PT INR Fibrinogen dRVVT Confirm Interp Factor V Activity POC ABG pH POC ABG pCO2 POC ABG pO2 ABG pO2 ABG HCO3 ABG Base Excess ABG Hemoglobin Oxyhemoglobin Sodium Potassium Chloride Carbon Dioxide BUN Creatinine Glucose POC Glucose 121 H Lactic Acid 4.50 H* Calcium Phosphorus Magnesium Direct Bilirubin AST ALT Alkaline Phosphatase Lactate Dehydrogenase Troponin T C-Reactive Protein Total Protein Albumin Prealbumin Triglycerides Cholesterol LDL Cholesterol Direct HDL Cholesterol Urine pH Urine WBC (Auto) Urine Creatinine Urine Total Protein Fluid Total Protein Vancomycin Trough Rheumatoid Factor Complement C4 Miscellaneous Test Crossmatch 09/29/16 09/29/16 09/29/16 06:45 06:45 06:45 WBC 14.9 H RBC 2.74 L Hgb 7.6 L Hct 23.2 L MCV MCH MCHC RDW 20.5 H Plt Count 81 L Lymph % (Auto) [place] % (Auto) Lymph # [place] # Baso # Seg Neutrophils % Seg Neuts % (Manual) 81.0 H Lymphocytes % (Manual) 4.0 L Monocytes % (Manual) Eosinophils % (Manual) Basophils % (Manual) Nucleated RBC % Seg Neutrophils # Seg Neutrophils # Man 12.1 H Lymphocytes # (Manual) 0.6 L Monocytes # (Manual) Eosinophils # (Manual) PT INR Fibrinogen dRVVT Confirm Interp Factor V Activity POC ABG pH POC ABG pCO2 POC ABG pO2 ABG pO2 ABG HCO3 ABG Base Excess ABG Hemoglobin Oxyhemoglobin Sodium 133 L Potassium 3.4 L Chloride 92.5 L Carbon Dioxide 21 L BUN 33 H Creatinine 3.0 H Glucose POC Glucose Lactic Acid Calcium 6.6 L Phosphorus Magnesium 1.40 L Direct Bilirubin 0.9 H AST ALT Alkaline Phosphatase Lactate Dehydrogenase Troponin T C-Reactive Protein Total Protein 4.3 L Albumin 1.3 L Prealbumin Triglycerides Cholesterol LDL Cholesterol Direct HDL Cholesterol Urine pH Urine WBC (Auto) Urine Creatinine Urine Total Protein Fluid Total Protein Vancomycin Trough Rheumatoid Factor Complement C4 Miscellaneous Test Crossmatch 09/29/16 09/29/16 09/30/16 17:52 20:12 00:07 WBC RBC Hgb Hct MCV MCH MCHC RDW Plt Count Lymph % (Auto) [place] % (Auto) Lymph # [place] # Baso # Seg Neutrophils % Seg Neuts % (Manual) Lymphocytes % (Manual) Monocytes % (Manual) Eosinophils % (Manual) Basophils % (Manual) Nucleated RBC % Seg Neutrophils # Seg Neutrophils # Man Lymphocytes # (Manual) Monocytes # (Manual) Eosinophils # (Manual) PT INR Fibrinogen dRVVT Confirm Interp Factor V Activity POC ABG pH POC ABG pCO2 POC ABG pO2 ABG pO2 ABG HCO3 ABG Base Excess ABG Hemoglobin Oxyhemoglobin Sodium Potassium Chloride Carbon Dioxide BUN Creatinine Glucose POC Glucose 50 L 51 L Lactic Acid Calcium Phosphorus Magnesium Direct Bilirubin AST ALT Alkaline Phosphatase Lactate Dehydrogenase Troponin T 0.204 H* C-Reactive Protein Total Protein Albumin Prealbumin Triglycerides Cholesterol 31 L LDL Cholesterol Direct 4 L HDL Cholesterol 3 L Urine pH Urine WBC (Auto) Urine Creatinine Urine Total Protein Fluid Total Protein Vancomycin Trough Rheumatoid Factor Complement C4 Miscellaneous Test Crossmatch 09/30/16 09/30/16 09/30/16 01:30 05:15 06:10 WBC RBC Hgb Hct MCV MCH MCHC RDW Plt Count Lymph % (Auto) [place] % (Auto) Lymph # [place] # Baso # Seg Neutrophils % Seg Neuts % (Manual) Lymphocytes % (Manual) Monocytes % (Manual) Eosinophils % (Manual) Basophils % (Manual) Nucleated RBC % Seg Neutrophils # Seg Neutrophils # Man Lymphocytes # (Manual) Monocytes # (Manual) Eosinophils # (Manual) PT INR Fibrinogen dRVVT Confirm Interp Factor V Activity POC ABG pH POC ABG pCO2 POC ABG pO2 ABG pO2 ABG HCO3 ABG Base Excess ABG Hemoglobin Oxyhemoglobin Sodium 133 L Potassium 3.2 L Chloride 93.2 L Carbon Dioxide 19 L BUN 36 H Creatinine 3.2 H Glucose 104 H POC Glucose 167 H 146 H Lactic Acid Calcium 6.4 L Phosphorus Magnesium 1.60 L Direct Bilirubin AST ALT Alkaline Phosphatase Lactate Dehydrogenase Troponin T C-Reactive Protein Total Protein Albumin Prealbumin Triglycerides Cholesterol LDL Cholesterol Direct HDL Cholesterol Urine pH Urine WBC (Auto) Urine Creatinine Urine Total Protein Fluid Total Protein Vancomycin Trough Rheumatoid Factor Complement C4 Miscellaneous Test Crossmatch 09/30/16 09/30/16 09/30/16 11:26 13:39 18:38 WBC RBC Hgb Hct MCV MCH MCHC RDW Plt Count Lymph % (Auto) [place] % (Auto) Lymph # [place] # Baso # Seg Neutrophils % Seg Neuts % (Manual) Lymphocytes % (Manual) Monocytes % (Manual) Eosinophils % (Manual) Basophils % (Manual) Nucleated RBC % Seg Neutrophils # Seg Neutrophils # Man Lymphocytes # (Manual) Monocytes # (Manual) Eosinophils # (Manual) PT INR Fibrinogen dRVVT Confirm Interp Factor V Activity POC ABG pH 7.479 H POC ABG pCO2 29.8 L POC ABG pO2 117 H ABG pO2 ABG HCO3 ABG Base Excess ABG Hemoglobin Oxyhemoglobin Sodium Potassium Chloride Carbon Dioxide BUN Creatinine Glucose POC Glucose 140 H 122 H Lactic Acid Calcium Phosphorus Magnesium Direct Bilirubin AST ALT Alkaline Phosphatase Lactate Dehydrogenase Troponin T C-Reactive Protein Total Protein Albumin Prealbumin Triglycerides Cholesterol LDL Cholesterol Direct HDL Cholesterol Urine pH Urine WBC (Auto) Urine Creatinine Urine Total Protein Fluid Total Protein Vancomycin Trough Rheumatoid Factor Complement C4 Miscellaneous Test Crossmatch 10/01/16 10/01/16 10/01/16 06:00 06:00 12:37 WBC 12.6 H RBC 2.75 L Hgb 7.3 L Hct 23.3 L MCV MCH 27 L MCHC RDW 20.6 H Plt Count 72 L Lymph % (Auto) [place] % (Auto) Lymph # [place] # Baso # Seg Neutrophils % Seg Neuts % (Manual) 31.0 L Lymphocytes % (Manual) 8.0 L Monocytes % (Manual) Eosinophils % (Manual) Basophils % (Manual) Nucleated RBC % 3.0 H Seg Neutrophils # Seg Neutrophils # Man Lymphocytes # (Manual) 1.0 L Monocytes # (Manual) Eosinophils # (Manual) PT INR Fibrinogen dRVVT Confirm Interp Factor V Activity POC ABG pH POC ABG pCO2 POC ABG pO2 ABG pO2 ABG HCO3 ABG Base Excess ABG Hemoglobin Oxyhemoglobin Sodium 127 L Potassium Chloride 86.8 L Carbon Dioxide 20 L BUN 42 H Creatinine 3.5 H Glucose POC Glucose 65 L Lactic Acid Calcium 7.0 L Phosphorus Magnesium Direct Bilirubin AST ALT Alkaline Phosphatase Lactate Dehydrogenase Troponin T C-Reactive Protein Total Protein Albumin Prealbumin Triglycerides Cholesterol LDL Cholesterol Direct HDL Cholesterol Urine pH Urine WBC (Auto) Urine Creatinine Urine Total Protein Fluid Total Protein Vancomycin Trough Rheumatoid Factor Complement C4 Miscellaneous Test Crossmatch 10/01/16 10/01/16 10/02/16 17:39 23:32 00:59 WBC RBC Hgb Hct MCV MCH MCHC RDW Plt Count Lymph % (Auto) [place] % (Auto) Lymph # [place] # Baso # Seg Neutrophils % Seg Neuts % (Manual) Lymphocytes % (Manual) Monocytes % (Manual) Eosinophils % (Manual) Basophils % (Manual) Nucleated RBC % Seg Neutrophils # Seg Neutrophils # Man Lymphocytes # (Manual) Monocytes # (Manual) Eosinophils # (Manual) PT INR Fibrinogen dRVVT Confirm Interp Factor V Activity POC ABG pH POC ABG pCO2 POC ABG pO2 ABG pO2 ABG HCO3 ABG Base Excess ABG Hemoglobin Oxyhemoglobin Sodium Potassium Chloride Carbon Dioxide BUN Creatinine Glucose POC Glucose 107 H 52 L 145 H Lactic Acid Calcium Phosphorus Magnesium Direct Bilirubin AST ALT Alkaline Phosphatase Lactate Dehydrogenase Troponin T C-Reactive Protein Total Protein Albumin Prealbumin Triglycerides Cholesterol LDL Cholesterol Direct HDL Cholesterol Urine pH Urine WBC (Auto) Urine Creatinine Urine Total Protein Fluid Total Protein Vancomycin Trough Rheumatoid Factor Complement C4 Miscellaneous Test Crossmatch 10/02/16 10/02/16 10/02/16 10:30 10:50 10:50 WBC 14.7 H RBC 2.76 L Hgb 7.4 L Hct 23.6 L MCV MCH 27 L MCHC RDW 20.2 H Plt Count 79 L Lymph % (Auto) [place] % (Auto) Lymph # [place] # Baso # Seg Neutrophils % Seg Neuts % (Manual) 86.0 H Lymphocytes % (Manual) 6.0 L Monocytes % (Manual) Eosinophils % (Manual) Basophils % (Manual) Nucleated RBC % Seg Neutrophils # Seg Neutrophils # Man 12.6 H Lymphocytes # (Manual) 0.9 L Monocytes # (Manual) Eosinophils # (Manual) PT INR Fibrinogen dRVVT Confirm Interp Factor V Activity POC ABG pH 7.486 H POC ABG pCO2 30.1 L POC ABG pO2 108 H ABG pO2 ABG HCO3 ABG Base Excess ABG Hemoglobin Oxyhemoglobin Sodium 131 L Potassium 3.4 L Chloride 89.9 L Carbon Dioxide BUN 26 H Creatinine 2.6 H Glucose POC Glucose Lactic Acid Calcium 7.0 L Phosphorus Magnesium Direct Bilirubin AST ALT Alkaline Phosphatase Lactate Dehydrogenase Troponin T C-Reactive Protein Total Protein Albumin Prealbumin Triglycerides Cholesterol LDL Cholesterol Direct HDL Cholesterol Urine pH Urine WBC (Auto) Urine Creatinine Urine Total Protein Fluid Total Protein Vancomycin Trough Rheumatoid Factor Complement C4 Miscellaneous Test Crossmatch 10/02/16 10/03/16 10/03/16 23:45 00:45 05:10 WBC 12.9 H RBC 2.77 L Hgb 7.6 L Hct 23.7 L MCV MCH 27 L MCHC RDW 19.7 H Plt Count 89 L Lymph % (Auto) [place] % (Auto) Lymph # [place] # Baso # Seg Neutrophils % Seg Neuts % (Manual) Lymphocytes % (Manual) 8.0 L Monocytes % (Manual) Eosinophils % (Manual) Basophils % (Manual) Nucleated RBC % Seg Neutrophils # 11.9 H Seg Neutrophils # Man Lymphocytes # (Manual) 1.0 L Monocytes # (Manual) Eosinophils # (Manual) PT INR Fibrinogen dRVVT Confirm Interp Factor V Activity POC ABG pH POC ABG pCO2 POC ABG pO2 ABG pO2 ABG HCO3 ABG Base Excess ABG Hemoglobin Oxyhemoglobin Sodium Potassium Chloride Carbon Dioxide BUN Creatinine Glucose POC Glucose 55 L 199 H Lactic Acid Calcium Phosphorus Magnesium Direct Bilirubin AST ALT Alkaline Phosphatase Lactate Dehydrogenase Troponin T C-Reactive Protein Total Protein Albumin Prealbumin Triglycerides Cholesterol LDL Cholesterol Direct HDL Cholesterol Urine pH Urine WBC (Auto) Urine Creatinine Urine Total Protein Fluid Total Protein Vancomycin Trough Rheumatoid Factor Complement C4 Miscellaneous Test Crossmatch 10/03/16 10/03/16 10/03/16 05:10 12:14 13:18 WBC RBC Hgb Hct MCV MCH MCHC RDW Plt Count Lymph % (Auto) [place] % (Auto) Lymph # [place] # Baso # Seg Neutrophils % Seg Neuts % (Manual) Lymphocytes % (Manual) Monocytes % (Manual) Eosinophils % (Manual) Basophils % (Manual) Nucleated RBC % Seg Neutrophils # Seg Neutrophils # Man Lymphocytes # (Manual) Monocytes # (Manual) Eosinophils # (Manual) PT INR Fibrinogen dRVVT Confirm Interp Factor V Activity POC ABG pH POC ABG pCO2 POC ABG pO2 ABG pO2 ABG HCO3 ABG Base Excess ABG Hemoglobin Oxyhemoglobin Sodium 129 L Potassium 3.3 L Chloride 88.8 L Carbon Dioxide 20 L BUN 29 H Creatinine 2.8 H Glucose POC Glucose 68 L 127 H Lactic Acid Calcium 7.2 L Phosphorus Magnesium Direct Bilirubin AST ALT Alkaline Phosphatase Lactate Dehydrogenase Troponin T C-Reactive Protein Total Protein Albumin Prealbumin Triglycerides Cholesterol LDL Cholesterol Direct HDL Cholesterol Urine pH Urine WBC (Auto) Urine Creatinine Urine Total Protein Fluid Total Protein Vancomycin Trough Rheumatoid Factor Complement C4 Miscellaneous Test Crossmatch 10/03/16 10/03/16 10/03/16 14:42 18:21 19:09 WBC RBC Hgb Hct MCV MCH MCHC RDW Plt Count Lymph % (Auto) [place] % (Auto) Lymph # [place] # Baso # Seg Neutrophils % Seg Neuts % (Manual) Lymphocytes % (Manual) Monocytes % (Manual) Eosinophils % (Manual) Basophils % (Manual) Nucleated RBC % Seg Neutrophils # Seg Neutrophils # Man Lymphocytes # (Manual) Monocytes # (Manual) Eosinophils # (Manual) PT INR Fibrinogen dRVVT Confirm Interp Factor V Activity POC ABG pH 7.499 H POC ABG pCO2 28.4 L POC ABG pO2 44 L ABG pO2 ABG HCO3 ABG Base Excess ABG Hemoglobin Oxyhemoglobin Sodium Potassium Chloride Carbon Dioxide BUN Creatinine Glucose POC Glucose 64 L 205 H Lactic Acid Calcium Phosphorus Magnesium Direct Bilirubin AST ALT Alkaline Phosphatase Lactate Dehydrogenase Troponin T C-Reactive Protein Total Protein Albumin Prealbumin Triglycerides Cholesterol LDL Cholesterol Direct HDL Cholesterol Urine pH Urine WBC (Auto) Urine Creatinine Urine Total Protein Fluid Total Protein Vancomycin Trough Rheumatoid Factor Complement C4 Miscellaneous Test Crossmatch 10/03/16 10/04/16 10/04/16 23:33 04:18 06:30 WBC RBC 2.54 L Hgb 7.1 L Hct 21.7 L MCV MCH MCHC RDW 19.5 H Plt Count 76 L Lymph % (Auto) [place] % (Auto) Lymph # [place] # Baso # Seg Neutrophils % Seg Neuts % (Manual) 88.0 H Lymphocytes % (Manual) 6.0 L Monocytes % (Manual) Eosinophils % (Manual) Basophils % (Manual) Nucleated RBC % Seg Neutrophils # Seg Neutrophils # Man 8.8 H Lymphocytes # (Manual) 0.6 L Monocytes # (Manual) Eosinophils # (Manual) PT INR Fibrinogen dRVVT Confirm Interp Factor V Activity POC ABG pH 7.461 H POC ABG pCO2 33.6 L POC ABG pO2 211 H ABG pO2 ABG HCO3 ABG Base Excess ABG Hemoglobin Oxyhemoglobin Sodium Potassium Chloride Carbon Dioxide BUN Creatinine Glucose POC Glucose 136 H Lactic Acid Calcium Phosphorus Magnesium Direct Bilirubin AST ALT Alkaline Phosphatase Lactate Dehydrogenase Troponin T C-Reactive Protein Total Protein Albumin Prealbumin Triglycerides Cholesterol LDL Cholesterol Direct HDL Cholesterol Urine pH Urine WBC (Auto) Urine Creatinine Urine Total Protein Fluid Total Protein Vancomycin Trough Rheumatoid Factor Complement C4 Miscellaneous Test Crossmatch 10/04/16 10/04/16 10/04/16 06:30 11:45 17:54 WBC RBC Hgb Hct MCV MCH MCHC RDW Plt Count Lymph % (Auto) [place] % (Auto) Lymph # [place] # Baso # Seg Neutrophils % Seg Neuts % (Manual) Lymphocytes % (Manual) Monocytes % (Manual) Eosinophils % (Manual) Basophils % (Manual) Nucleated RBC % Seg Neutrophils # Seg Neutrophils # Man Lymphocytes # (Manual) Monocytes # (Manual) Eosinophils # (Manual) PT INR Fibrinogen dRVVT Confirm Interp Factor V Activity POC ABG pH POC ABG pCO2 POC ABG pO2 ABG pO2 ABG HCO3 ABG Base Excess ABG Hemoglobin Oxyhemoglobin Sodium 128 L Potassium Chloride 87.4 L Carbon Dioxide 20 L BUN 34 H Creatinine 2.9 H Glucose 127 H POC Glucose 158 H 160 H Lactic Acid Calcium 7.4 L Phosphorus Magnesium Direct Bilirubin AST ALT Alkaline Phosphatase Lactate Dehydrogenase Troponin T C-Reactive Protein Total Protein Albumin Prealbumin Triglycerides Cholesterol LDL Cholesterol Direct HDL Cholesterol Urine pH Urine WBC (Auto) Urine Creatinine Urine Total Protein Fluid Total Protein Vancomycin Trough Rheumatoid Factor Complement C4 Miscellaneous Test Crossmatch 10/04/16 10/05/16 10/05/16 23:25 04:30 05:00 WBC RBC 2.64 L Hgb 7.5 L Hct 22.6 L MCV MCH MCHC RDW 19.3 H Plt Count 80 L Lymph % (Auto) [place] % (Auto) Lymph # [place] # Baso # Seg Neutrophils % Seg Neuts % (Manual) Lymphocytes % (Manual) 12.0 L Monocytes % (Manual) Eosinophils % (Manual) Basophils % (Manual) Nucleated RBC % Seg Neutrophils # Seg Neutrophils # Man Lymphocytes # (Manual) Monocytes # (Manual) Eosinophils # (Manual) PT INR Fibrinogen dRVVT Confirm Interp Factor V Activity POC ABG pH 7.475 H POC ABG pCO2 33.3 L POC ABG pO2 140 H ABG pO2 ABG HCO3 ABG Base Excess ABG Hemoglobin Oxyhemoglobin Sodium Potassium Chloride Carbon Dioxide BUN Creatinine Glucose POC Glucose 141 H Lactic Acid Calcium Phosphorus Magnesium Direct Bilirubin AST ALT Alkaline Phosphatase Lactate Dehydrogenase Troponin T C-Reactive Protein Total Protein Albumin Prealbumin Triglycerides Cholesterol LDL Cholesterol Direct HDL Cholesterol Urine pH Urine WBC (Auto) Urine Creatinine Urine Total Protein Fluid Total Protein Vancomycin Trough Rheumatoid Factor Complement C4 Miscellaneous Test Crossmatch 10/05/16 10/05/16 10/05/16 05:00 05:09 12:58 WBC RBC Hgb Hct MCV MCH MCHC RDW Plt Count Lymph % (Auto) [place] % (Auto) Lymph # [place] # Baso # Seg Neutrophils % Seg Neuts % (Manual) Lymphocytes % (Manual) Monocytes % (Manual) Eosinophils % (Manual) Basophils % (Manual) Nucleated RBC % Seg Neutrophils # Seg Neutrophils # Man Lymphocytes # (Manual) Monocytes # (Manual) Eosinophils # (Manual) PT INR Fibrinogen dRVVT Confirm Interp Factor V Activity POC ABG pH POC ABG pCO2 POC ABG pO2 ABG pO2 ABG HCO3 ABG Base Excess ABG Hemoglobin Oxyhemoglobin Sodium 131 L Potassium Chloride 94.0 L Carbon Dioxide 20 L BUN 22 H Creatinine 2.0 H Glucose 123 H POC Glucose 166 H 179 H Lactic Acid Calcium 7.7 L Phosphorus 2.20 L D Magnesium Direct Bilirubin AST ALT Alkaline Phosphatase Lactate Dehydrogenase Troponin T C-Reactive Protein Total Protein Albumin Prealbumin Triglycerides Cholesterol LDL Cholesterol Direct HDL Cholesterol Urine pH Urine WBC (Auto) Urine Creatinine Urine Total Protein Fluid Total Protein Vancomycin Trough Rheumatoid Factor Complement C4 Miscellaneous Test Crossmatch 10/05/16 10/05/16 10/05/16 15:50 18:53 23:12 WBC RBC Hgb Hct MCV MCH MCHC RDW Plt Count Lymph % (Auto) [place] % (Auto) Lymph # [place] # Baso # Seg Neutrophils % Seg Neuts % (Manual) Lymphocytes % (Manual) Monocytes % (Manual) Eosinophils % (Manual) Basophils % (Manual) Nucleated RBC % Seg Neutrophils # Seg Neutrophils # Man Lymphocytes # (Manual) Monocytes # (Manual) Eosinophils # (Manual) PT INR Fibrinogen dRVVT Confirm Interp Factor V Activity POC ABG pH POC ABG pCO2 POC ABG pO2 ABG pO2 ABG HCO3 ABG Base Excess ABG Hemoglobin Oxyhemoglobin Sodium Potassium Chloride Carbon Dioxide BUN Creatinine Glucose POC Glucose 150 H 164 H Lactic Acid Calcium Phosphorus Magnesium Direct Bilirubin AST ALT Alkaline Phosphatase Lactate Dehydrogenase Troponin T C-Reactive Protein Total Protein Albumin Prealbumin Triglycerides Cholesterol LDL Cholesterol Direct HDL Cholesterol Urine pH Urine WBC (Auto) Urine Creatinine Urine Total Protein Fluid Total Protein Vancomycin Trough Rheumatoid Factor Complement C4 Miscellaneous Test Crossmatch See Detail 10/06/16 10/06/16 10/06/16 03:50 03:50 04:53 WBC RBC 3.00 L Hgb 8.6 L Hct 25.8 L MCV MCH MCHC RDW 17.9 H Plt Count 65 L Lymph % (Auto) [place] % (Auto) Lymph # [place] # Baso # Seg Neutrophils % Seg Neuts % (Manual) 30.0 L Lymphocytes % (Manual) 5.0 L Monocytes % (Manual) Eosinophils % (Manual) Basophils % (Manual) Nucleated RBC % Seg Neutrophils # Seg Neutrophils # Man Lymphocytes # (Manual) 0.4 L Monocytes # (Manual) Eosinophils # (Manual) PT INR Fibrinogen dRVVT Confirm Interp Factor V Activity POC ABG pH 7.310 L POC ABG pCO2 49.0 H POC ABG pO2 ABG pO2 ABG HCO3 ABG Base Excess ABG Hemoglobin Oxyhemoglobin Sodium 133 L Potassium Chloride 95.9 L Carbon Dioxide BUN 26 H Creatinine 2.0 H Glucose 116 H POC Glucose Lactic Acid Calcium 7.8 L Phosphorus Magnesium Direct Bilirubin AST ALT Alkaline Phosphatase Lactate Dehydrogenase Troponin T C-Reactive Protein Total Protein Albumin Prealbumin Triglycerides Cholesterol LDL Cholesterol Direct HDL Cholesterol Urine pH Urine WBC (Auto) Urine Creatinine Urine Total Protein Fluid Total Protein Vancomycin Trough Rheumatoid Factor Complement C4 Miscellaneous Test Crossmatch 10/06/16 10/06/16 10/06/16 05:23 11:52 18:34 WBC RBC Hgb Hct MCV MCH MCHC RDW Plt Count Lymph % (Auto) [place] % (Auto) Lymph # [place] # Baso # Seg Neutrophils % Seg Neuts % (Manual) Lymphocytes % (Manual) Monocytes % (Manual) Eosinophils % (Manual) Basophils % (Manual) Nucleated RBC % Seg Neutrophils # Seg Neutrophils # Man Lymphocytes # (Manual) Monocytes # (Manual) Eosinophils # (Manual) PT INR Fibrinogen dRVVT Confirm Interp Factor V Activity POC ABG pH POC ABG pCO2 POC ABG pO2 ABG pO2 ABG HCO3 ABG Base Excess ABG Hemoglobin Oxyhemoglobin Sodium Potassium Chloride Carbon Dioxide BUN Creatinine Glucose POC Glucose 126 H 116 H 129 H Lactic Acid Calcium Phosphorus Magnesium Direct Bilirubin AST ALT Alkaline Phosphatase Lactate Dehydrogenase Troponin T C-Reactive Protein Total Protein Albumin Prealbumin Triglycerides Cholesterol LDL Cholesterol Direct HDL Cholesterol Urine pH Urine WBC (Auto) Urine Creatinine Urine Total Protein Fluid Total Protein Vancomycin Trough Rheumatoid Factor Complement C4 Miscellaneous Test Crossmatch 10/07/16 10/07/16 10/07/16 03:45 05:00 10:00 WBC 17.0 H RBC 2.68 L Hgb 7.3 L Hct 25.3 L MCV MCH 27 L MCHC 29 L RDW 19.6 H Plt Count 74 L Lymph % (Auto) [place] % (Auto) Lymph # [place] # Baso # Seg Neutrophils % Seg Neuts % (Manual) Lymphocytes % (Manual) 12.0 L Monocytes % (Manual) Eosinophils % (Manual) Basophils % (Manual) Nucleated RBC % 4.0 H Seg Neutrophils # Seg Neutrophils # Man 10.7 H Lymphocytes # (Manual) Monocytes # (Manual) Eosinophils # (Manual) PT INR Fibrinogen dRVVT Confirm Interp Factor V Activity POC ABG pH POC ABG pCO2 POC ABG pO2 ABG pO2 ABG HCO3 ABG Base Excess ABG Hemoglobin Oxyhemoglobin Sodium 130 L Potassium 3.2 L Chloride 93.9 L Carbon Dioxide 20 L BUN 44 H Creatinine 2.7 H Glucose 129 H POC Glucose Lactic Acid Calcium 7.4 L Phosphorus Magnesium Direct Bilirubin AST ALT 6 L Alkaline Phosphatase 195 H Lactate Dehydrogenase Troponin T C-Reactive Protein Total Protein 4.9 L Albumin 1.0 L Prealbumin Triglycerides Cholesterol LDL Cholesterol Direct HDL Cholesterol Urine pH Urine WBC (Auto) Urine Creatinine Urine Total Protein Fluid Total Protein Vancomycin Trough Rheumatoid Factor Complement C4 Miscellaneous Test Flexitest 1 H Crossmatch 10/07/16 10/07/16 10/07/16 10:00 11:24 18:10 WBC RBC Hgb Hct MCV MCH MCHC RDW Plt Count Lymph % (Auto) [place] % (Auto) Lymph # [place] # Baso # Seg Neutrophils % Seg Neuts % (Manual) Lymphocytes % (Manual) Monocytes % (Manual) Eosinophils % (Manual) Basophils % (Manual) Nucleated RBC % Seg Neutrophils # Seg Neutrophils # Man Lymphocytes # (Manual) Monocytes # (Manual) Eosinophils # (Manual) PT INR Fibrinogen dRVVT Confirm Interp Factor V Activity POC ABG pH POC ABG pCO2 POC ABG pO2 ABG pO2 ABG HCO3 ABG Base Excess ABG Hemoglobin Oxyhemoglobin Sodium Potassium Chloride Carbon Dioxide BUN Creatinine Glucose POC Glucose 116 H 130 H Lactic Acid Calcium Phosphorus Magnesium Direct Bilirubin AST ALT Alkaline Phosphatase Lactate Dehydrogenase Troponin T C-Reactive Protein 19.40 H Total Protein Albumin Prealbumin Triglycerides Cholesterol LDL Cholesterol Direct HDL Cholesterol Urine pH Urine WBC (Auto) Urine Creatinine Urine Total Protein Fluid Total Protein Vancomycin Trough Rheumatoid Factor Complement C4 Miscellaneous Test Crossmatch 10/07/16 10/08/16 10/08/16 18:30 00:00 04:00 WBC RBC Hgb Hct MCV MCH MCHC RDW Plt Count Lymph % (Auto) [place] % (Auto) Lymph # [place] # Baso # Seg Neutrophils % Seg Neuts % (Manual) Lymphocytes % (Manual) Monocytes % (Manual) Eosinophils % (Manual) Basophils % (Manual) Nucleated RBC % Seg Neutrophils # Seg Neutrophils # Man Lymphocytes # (Manual) Monocytes # (Manual) Eosinophils # (Manual) PT INR Fibrinogen dRVVT Confirm Interp Factor V Activity POC ABG pH POC ABG pCO2 POC ABG pO2 ABG pO2 ABG HCO3 ABG Base Excess ABG Hemoglobin Oxyhemoglobin Sodium 132 L Potassium 3.3 L Chloride 93.6 L Carbon Dioxide 17 L BUN 59 H Creatinine 2.7 H Glucose 121 H POC Glucose 122 H Lactic Acid Calcium 7.6 L Phosphorus Magnesium Direct Bilirubin AST ALT Alkaline Phosphatase Lactate Dehydrogenase Troponin T C-Reactive Protein Total Protein Albumin Prealbumin Triglycerides Cholesterol LDL Cholesterol Direct HDL Cholesterol Urine pH Urine WBC (Auto) > 182.0 H Urine Creatinine Urine Total Protein Fluid Total Protein Vancomycin Trough Rheumatoid Factor Complement C4 Miscellaneous Test Crossmatch 10/08/16 10/08/16 10/08/16 04:30 05:30 11:51 WBC RBC 5.15 H Hgb 14.4 H D Hct 44.5 H D MCV MCH MCHC RDW 19.5 H Plt Count 56 L Lymph % (Auto) [place] % (Auto) Lymph # [place] # Baso # Seg Neutrophils % Seg Neuts % (Manual) 24.0 L Lymphocytes % (Manual) 8.0 L Monocytes % (Manual) Eosinophils % (Manual) Basophils % (Manual) Nucleated RBC % 9.0 H Seg Neutrophils # Seg Neutrophils # Man Lymphocytes # (Manual) 0.7 L Monocytes # (Manual) Eosinophils # (Manual) PT INR Fibrinogen dRVVT Confirm Interp Factor V Activity POC ABG pH POC ABG pCO2 POC ABG pO2 ABG pO2 ABG HCO3 ABG Base Excess ABG Hemoglobin Oxyhemoglobin Sodium Potassium Chloride Carbon Dioxide BUN Creatinine Glucose POC Glucose 125 H 150 H Lactic Acid Calcium Phosphorus Magnesium Direct Bilirubin AST ALT Alkaline Phosphatase Lactate Dehydrogenase Troponin T C-Reactive Protein Total Protein Albumin Prealbumin Triglycerides Cholesterol LDL Cholesterol Direct HDL Cholesterol Urine pH Urine WBC (Auto) Urine Creatinine Urine Total Protein Fluid Total Protein Vancomycin Trough Rheumatoid Factor Complement C4 Miscellaneous Test Crossmatch 10/08/16 10/08/16 10/08/16 12:49 17:07 19:30 WBC RBC Hgb 7.1 L D Hct 22.4 L D MCV MCH MCHC RDW Plt Count Lymph % (Auto) [place] % (Auto) Lymph # [place] # Baso # Seg Neutrophils % Seg Neuts % (Manual) Lymphocytes % (Manual) Monocytes % (Manual) Eosinophils % (Manual) Basophils % (Manual) Nucleated RBC % Seg Neutrophils # Seg Neutrophils # Man Lymphocytes # (Manual) Monocytes # (Manual) Eosinophils # (Manual) PT INR Fibrinogen dRVVT Confirm Interp Factor V Activity POC ABG pH POC ABG pCO2 28.2 L POC ABG pO2 111 H ABG pO2 ABG HCO3 ABG Base Excess ABG Hemoglobin Oxyhemoglobin Sodium Potassium Chloride Carbon Dioxide BUN Creatinine Glucose POC Glucose 145 H Lactic Acid Calcium Phosphorus Magnesium Direct Bilirubin AST ALT Alkaline Phosphatase Lactate Dehydrogenase Troponin T C-Reactive Protein Total Protein Albumin Prealbumin Triglycerides Cholesterol LDL Cholesterol Direct HDL Cholesterol Urine pH Urine WBC (Auto) Urine Creatinine Urine Total Protein Fluid Total Protein Vancomycin Trough Rheumatoid Factor Complement C4 Miscellaneous Test Crossmatch 10/08/16 10/09/16 10/09/16 19:30 03:45 03:45 WBC 12.6 H RBC 2.36 L Hgb 6.7 L Hct 21.1 L MCV MCH MCHC RDW 19.5 H Plt Count 75 L Lymph % (Auto) [place] % (Auto) Lymph # [place] # Baso # Seg Neutrophils % Seg Neuts % (Manual) Lymphocytes % (Manual) Monocytes % (Manual) 10.0 H Eosinophils % (Manual) Basophils % (Manual) Nucleated RBC % 3.0 H Seg Neutrophils # Seg Neutrophils # Man Lymphocytes # (Manual) Monocytes # (Manual) 1.3 H Eosinophils # (Manual) PT 18.0 H INR 1.41 H Fibrinogen dRVVT Confirm Interp Factor V Activity POC ABG pH POC ABG pCO2 POC ABG pO2 ABG pO2 ABG HCO3 ABG Base Excess ABG Hemoglobin Oxyhemoglobin Sodium 135 L Potassium Chloride Carbon Dioxide 17 L BUN 81 H Creatinine 3.2 H Glucose 109 H POC Glucose Lactic Acid Calcium 7.4 L Phosphorus 4.60 H D Magnesium Direct Bilirubin AST ALT Alkaline Phosphatase Lactate Dehydrogenase Troponin T C-Reactive Protein Total Protein Albumin Prealbumin Triglycerides Cholesterol LDL Cholesterol Direct HDL Cholesterol Urine pH Urine WBC (Auto) Urine Creatinine Urine Total Protein Fluid Total Protein Vancomycin Trough Rheumatoid Factor Complement C4 Miscellaneous Test Crossmatch 10/09/16 10/09/16 10/09/16 03:45 05:14 07:20 WBC RBC Hgb Hct MCV MCH MCHC RDW Plt Count Lymph % (Auto) [place] % (Auto) Lymph # [place] # Baso # Seg Neutrophils % Seg Neuts % (Manual) Lymphocytes % (Manual) Monocytes % (Manual) Eosinophils % (Manual) Basophils % (Manual) Nucleated RBC % Seg Neutrophils # Seg Neutrophils # Man Lymphocytes # (Manual) Monocytes # (Manual) Eosinophils # (Manual) PT 19.0 H INR 1.51 H Fibrinogen dRVVT Confirm Interp Factor V Activity POC ABG pH POC ABG pCO2 POC ABG pO2 ABG pO2 ABG HCO3 ABG Base Excess ABG Hemoglobin Oxyhemoglobin Sodium Potassium Chloride Carbon Dioxide BUN Creatinine Glucose POC Glucose 151 H Lactic Acid Calcium Phosphorus Magnesium Direct Bilirubin AST ALT Alkaline Phosphatase Lactate Dehydrogenase Troponin T C-Reactive Protein Total Protein Albumin Prealbumin Triglycerides Cholesterol LDL Cholesterol Direct HDL Cholesterol Urine pH Urine WBC (Auto) Urine Creatinine Urine Total Protein Fluid Total Protein Vancomycin Trough Rheumatoid Factor Complement C4 Miscellaneous Test Crossmatch See Detail 10/09/16 10/09/16 10/09/16 11:46 16:20 16:43 WBC RBC Hgb 7.2 L Hct 22.2 L MCV MCH MCHC RDW Plt Count Lymph % (Auto) [place] % (Auto) Lymph # [place] # Baso # Seg Neutrophils % Seg Neuts % (Manual) Lymphocytes % (Manual) Monocytes % (Manual) Eosinophils % (Manual) Basophils % (Manual) Nucleated RBC % Seg Neutrophils # Seg Neutrophils # Man Lymphocytes # (Manual) Monocytes # (Manual) Eosinophils # (Manual) PT INR Fibrinogen dRVVT Confirm Interp Factor V Activity POC ABG pH POC ABG pCO2 POC ABG pO2 ABG pO2 ABG HCO3 ABG Base Excess ABG Hemoglobin Oxyhemoglobin Sodium Potassium Chloride Carbon Dioxide BUN Creatinine Glucose POC Glucose 133 H 141 H Lactic Acid Calcium Phosphorus Magnesium Direct Bilirubin AST ALT Alkaline Phosphatase Lactate Dehydrogenase Troponin T C-Reactive Protein Total Protein Albumin Prealbumin Triglycerides Cholesterol LDL Cholesterol Direct HDL Cholesterol Urine pH Urine WBC (Auto) Urine Creatinine Urine Total Protein Fluid Total Protein Vancomycin Trough Rheumatoid Factor Complement C4 Miscellaneous Test Crossmatch 10/10/16 10/10/16 10/10/16 05:00 05:00 11:19 WBC 18.5 H RBC 2.19 L Hgb 6.4 L Hct 19.6 L* MCV MCH MCHC RDW 19.3 H Plt Count 93 L Lymph % (Auto) [place] % (Auto) Lymph # [place] # Baso # Seg Neutrophils % Seg Neuts % (Manual) Lymphocytes % (Manual) 10.0 L Monocytes % (Manual) Eosinophils % (Manual) Basophils % (Manual) Nucleated RBC % 4.0 H Seg Neutrophils # Seg Neutrophils # Man 11.3 H Lymphocytes # (Manual) Monocytes # (Manual) Eosinophils # (Manual) PT INR Fibrinogen dRVVT Confirm Interp Factor V Activity POC ABG pH POC ABG pCO2 POC ABG pO2 ABG pO2 ABG HCO3 ABG Base Excess ABG Hemoglobin Oxyhemoglobin Sodium Potassium 5.7 H D Chloride Carbon Dioxide 16 L BUN 94 H Creatinine 3.1 H Glucose 131 H POC Glucose 153 H Lactic Acid Calcium 8.2 L Phosphorus 5.10 H Magnesium 2.40 H Direct Bilirubin 0.3 H AST ALT < 5 L Alkaline Phosphatase 319 H Lactate Dehydrogenase Troponin T C-Reactive Protein Total Protein 5.1 L Albumin 1.0 L Prealbumin Triglycerides Cholesterol LDL Cholesterol Direct HDL Cholesterol Urine pH Urine WBC (Auto) Urine Creatinine Urine Total Protein Fluid Total Protein Vancomycin Trough Rheumatoid Factor Complement C4 Miscellaneous Test Crossmatch 10/10/16 10/10/16 10/11/16 17:50 23:30 04:15 WBC RBC Hgb Hct MCV MCH MCHC RDW Plt Count Lymph % (Auto) [place] % (Auto) Lymph # [place] # Baso # Seg Neutrophils % Seg Neuts % (Manual) Lymphocytes % (Manual) Monocytes % (Manual) Eosinophils % (Manual) Basophils % (Manual) Nucleated RBC % Seg Neutrophils # Seg Neutrophils # Man Lymphocytes # (Manual) Monocytes # (Manual) Eosinophils # (Manual) PT INR Fibrinogen dRVVT Confirm Interp Factor V Activity POC ABG pH POC ABG pCO2 POC ABG pO2 ABG pO2 ABG HCO3 ABG Base Excess ABG Hemoglobin Oxyhemoglobin Sodium Potassium Chloride 96.4 L Carbon Dioxide 21 L BUN 57 H Creatinine 2.1 H Glucose 151 H POC Glucose 146 H 141 H Lactic Acid Calcium 8.3 L Phosphorus Magnesium Direct Bilirubin AST ALT Alkaline Phosphatase Lactate Dehydrogenase Troponin T C-Reactive Protein Total Protein Albumin Prealbumin Triglycerides Cholesterol LDL Cholesterol Direct HDL Cholesterol Urine pH Urine WBC (Auto) Urine Creatinine Urine Total Protein Fluid Total Protein Vancomycin Trough Rheumatoid Factor Complement C4 Miscellaneous Test Crossmatch 10/11/16 10/11/16 10/11/16 04:15 04:15 05:30 WBC 28.3 H RBC 3.12 L Hgb 9.3 L Hct 28.7 L D MCV MCH MCHC RDW 17.7 H Plt Count 128 L Lymph % (Auto) [place] % (Auto) Lymph # [place] # Baso # Seg Neutrophils % Seg Neuts % (Manual) Lymphocytes % (Manual) Monocytes % (Manual) Eosinophils % (Manual) Basophils % (Manual) Nucleated RBC % Seg Neutrophils # Seg Neutrophils # Man Lymphocytes # (Manual) Monocytes # (Manual) Eosinophils # (Manual) PT INR Fibrinogen dRVVT Confirm Interp Factor V Activity POC ABG pH POC ABG pCO2 POC ABG pO2 ABG pO2 ABG HCO3 ABG Base Excess ABG Hemoglobin Oxyhemoglobin Sodium Potassium Chloride Carbon Dioxide BUN Creatinine Glucose POC Glucose 167 H Lactic Acid Calcium Phosphorus Magnesium Direct Bilirubin AST ALT Alkaline Phosphatase Lactate Dehydrogenase Troponin T C-Reactive Protein 15.80 H Total Protein Albumin Prealbumin Triglycerides Cholesterol LDL Cholesterol Direct HDL Cholesterol Urine pH Urine WBC (Auto) Urine Creatinine Urine Total Protein Fluid Total Protein Vancomycin Trough Rheumatoid Factor Complement C4 Miscellaneous Test Crossmatch 10/11/16 10/11/16 10/11/16 11:40 15:49 23:57 WBC RBC Hgb Hct MCV MCH MCHC RDW Plt Count Lymph % (Auto) [place] % (Auto) Lymph # [place] # Baso # Seg Neutrophils % Seg Neuts % (Manual) Lymphocytes % (Manual) Monocytes % (Manual) Eosinophils % (Manual) Basophils % (Manual) Nucleated RBC % Seg Neutrophils # Seg Neutrophils # Man Lymphocytes # (Manual) Monocytes # (Manual) Eosinophils # (Manual) PT INR Fibrinogen dRVVT Confirm Interp Factor V Activity POC ABG pH POC ABG pCO2 POC ABG pO2 ABG pO2 ABG HCO3 ABG Base Excess ABG Hemoglobin Oxyhemoglobin Sodium Potassium Chloride Carbon Dioxide BUN Creatinine Glucose POC Glucose 139 H 168 H 161 H Lactic Acid Calcium Phosphorus Magnesium Direct Bilirubin AST ALT Alkaline Phosphatase Lactate Dehydrogenase Troponin T C-Reactive Protein Total Protein Albumin Prealbumin Triglycerides Cholesterol LDL Cholesterol Direct HDL Cholesterol Urine pH Urine WBC (Auto) Urine Creatinine Urine Total Protein Fluid Total Protein Vancomycin Trough Rheumatoid Factor Complement C4 Miscellaneous Test Crossmatch 10/12/16 10/12/16 10/12/16 04:40 04:40 05:44 WBC 22.5 H RBC 2.88 L Hgb 8.8 L Hct 26.8 L MCV MCH MCHC RDW 17.8 H Plt Count Lymph % (Auto) [place] % (Auto) Lymph # [place] # Baso # Seg Neutrophils % Seg Neuts % (Manual) Lymphocytes % (Manual) Monocytes % (Manual) Eosinophils % (Manual) Basophils % (Manual) Nucleated RBC % Seg Neutrophils # Seg Neutrophils # Man Lymphocytes # (Manual) Monocytes # (Manual) Eosinophils # (Manual) PT INR Fibrinogen dRVVT Confirm Interp Factor V Activity POC ABG pH POC ABG pCO2 POC ABG pO2 ABG pO2 ABG HCO3 ABG Base Excess ABG Hemoglobin Oxyhemoglobin Sodium 134 L Potassium Chloride 93.0 L Carbon Dioxide BUN 74 H Creatinine 2.5 H Glucose 137 H POC Glucose 158 H Lactic Acid Calcium 8.2 L Phosphorus Magnesium Direct Bilirubin AST ALT Alkaline Phosphatase Lactate Dehydrogenase Troponin T C-Reactive Protein Total Protein Albumin Prealbumin Triglycerides Cholesterol LDL Cholesterol Direct HDL Cholesterol Urine pH Urine WBC (Auto) Urine Creatinine Urine Total Protein Fluid Total Protein Vancomycin Trough Rheumatoid Factor Complement C4 Miscellaneous Test Crossmatch 10/12/16 10/12/16 10/12/16 12:27 18:18 23:46 WBC RBC Hgb Hct MCV MCH MCHC RDW Plt Count Lymph % (Auto) [place] % (Auto) Lymph # [place] # Baso # Seg Neutrophils % Seg Neuts % (Manual) Lymphocytes % (Manual) Monocytes % (Manual) Eosinophils % (Manual) Basophils % (Manual) Nucleated RBC % Seg Neutrophils # Seg Neutrophils # Man Lymphocytes # (Manual) Monocytes # (Manual) Eosinophils # (Manual) PT INR Fibrinogen dRVVT Confirm Interp Factor V Activity POC ABG pH POC ABG pCO2 POC ABG pO2 ABG pO2 ABG HCO3 ABG Base Excess ABG Hemoglobin Oxyhemoglobin Sodium Potassium Chloride Carbon Dioxide BUN Creatinine Glucose POC Glucose 153 H 140 H 150 H Lactic Acid Calcium Phosphorus Magnesium Direct Bilirubin AST ALT Alkaline Phosphatase Lactate Dehydrogenase Troponin T C-Reactive Protein Total Protein Albumin Prealbumin Triglycerides Cholesterol LDL Cholesterol Direct HDL Cholesterol Urine pH Urine WBC (Auto) Urine Creatinine Urine Total Protein Fluid Total Protein Vancomycin Trough Rheumatoid Factor Complement C4 Miscellaneous Test Crossmatch 10/13/16 10/13/16 10/13/16 06:22 09:20 12:29 WBC RBC Hgb Hct MCV MCH MCHC RDW Plt Count Lymph % (Auto) [place] % (Auto) Lymph # [place] # Baso # Seg Neutrophils % Seg Neuts % (Manual) Lymphocytes % (Manual) Monocytes % (Manual) Eosinophils % (Manual) Basophils % (Manual) Nucleated RBC % Seg Neutrophils # Seg Neutrophils # Man Lymphocytes # (Manual) Monocytes # (Manual) Eosinophils # (Manual) PT INR Fibrinogen dRVVT Confirm Interp Factor V Activity POC ABG pH POC ABG pCO2 POC ABG pO2 ABG pO2 ABG HCO3 ABG Base Excess ABG Hemoglobin Oxyhemoglobin Sodium Potassium Chloride Carbon Dioxide BUN Creatinine Glucose POC Glucose 165 H 193 H Lactic Acid Calcium Phosphorus Magnesium Direct Bilirubin AST ALT Alkaline Phosphatase Lactate Dehydrogenase Troponin T C-Reactive Protein Total Protein Albumin Prealbumin Triglycerides Cholesterol LDL Cholesterol Direct HDL Cholesterol Urine pH Urine WBC (Auto) Urine Creatinine Urine Total Protein Fluid Total Protein Vancomycin Trough Rheumatoid Factor Complement C4 Miscellaneous Test Flexitest 1 H Crossmatch 10/13/16 10/13/16 10/13/16 18:09 Unknown Unknown WBC 23.4 H RBC 2.83 L Hgb 8.7 L Hct 26.1 L MCV MCH MCHC RDW 18.1 H Plt Count Lymph % (Auto) [place] % (Auto) Lymph # [place] # Baso # Seg Neutrophils % Seg Neuts % (Manual) Lymphocytes % (Manual) Monocytes % (Manual) Eosinophils % (Manual) Basophils % (Manual) Nucleated RBC % Seg Neutrophils # Seg Neutrophils # Man Lymphocytes # (Manual) Monocytes # (Manual) Eosinophils # (Manual) PT INR Fibrinogen dRVVT Confirm Interp Factor V Activity POC ABG pH POC ABG pCO2 POC ABG pO2 ABG pO2 ABG HCO3 ABG Base Excess ABG Hemoglobin Oxyhemoglobin Sodium Potassium Chloride 95.8 L Carbon Dioxide BUN 82 H Creatinine 2.6 H Glucose 152 H POC Glucose 166 H Lactic Acid Calcium Phosphorus Magnesium Direct Bilirubin AST ALT Alkaline Phosphatase Lactate Dehydrogenase Troponin T C-Reactive Protein Total Protein Albumin Prealbumin Triglycerides Cholesterol LDL Cholesterol Direct HDL Cholesterol Urine pH Urine WBC (Auto) Urine Creatinine Urine Total Protein Fluid Total Protein Vancomycin Trough Rheumatoid Factor Complement C4 Miscellaneous Test Crossmatch 10/14/16 10/14/16 10/14/16 05:38 06:35 08:10 WBC 20.7 H RBC 2.81 L Hgb 8.4 L Hct 27.2 L MCV MCH MCHC RDW 19.4 H Plt Count Lymph % (Auto) [place] % (Auto) Lymph # [place] # Baso # Seg Neutrophils % Seg Neuts % (Manual) Lymphocytes % (Manual) Monocytes % (Manual) Eosinophils % (Manual) Basophils % (Manual) Nucleated RBC % Seg Neutrophils # Seg Neutrophils # Man Lymphocytes # (Manual) Monocytes # (Manual) Eosinophils # (Manual) PT INR Fibrinogen dRVVT Confirm Interp Factor V Activity POC ABG pH POC ABG pCO2 POC ABG pO2 ABG pO2 ABG HCO3 ABG Base Excess ABG Hemoglobin Oxyhemoglobin Sodium Potassium Chloride Carbon Dioxide BUN 58 H Creatinine 1.9 H Glucose 169 H POC Glucose 195 H Lactic Acid Calcium Phosphorus Magnesium Direct Bilirubin AST ALT Alkaline Phosphatase Lactate Dehydrogenase Troponin T C-Reactive Protein Total Protein Albumin Prealbumin Triglycerides Cholesterol LDL Cholesterol Direct HDL Cholesterol Urine pH Urine WBC (Auto) Urine Creatinine Urine Total Protein Fluid Total Protein Vancomycin Trough Rheumatoid Factor Complement C4 Miscellaneous Test Crossmatch 10/14/16 10/14/16 10/14/16 11:44 17:13 23:28 WBC RBC Hgb Hct MCV MCH MCHC RDW Plt Count Lymph % (Auto) [place] % (Auto) Lymph # [place] # Baso # Seg Neutrophils % Seg Neuts % (Manual) Lymphocytes % (Manual) Monocytes % (Manual) Eosinophils % (Manual) Basophils % (Manual) Nucleated RBC % Seg Neutrophils # Seg Neutrophils # Man Lymphocytes # (Manual) Monocytes # (Manual) Eosinophils # (Manual) PT INR Fibrinogen dRVVT Confirm Interp Factor V Activity POC ABG pH POC ABG pCO2 POC ABG pO2 ABG pO2 ABG HCO3 ABG Base Excess ABG Hemoglobin Oxyhemoglobin Sodium Potassium Chloride Carbon Dioxide BUN Creatinine Glucose POC Glucose 174 H 121 H 151 H Lactic Acid Calcium Phosphorus Magnesium Direct Bilirubin AST ALT Alkaline Phosphatase Lactate Dehydrogenase Troponin T C-Reactive Protein Total Protein Albumin Prealbumin Triglycerides Cholesterol LDL Cholesterol Direct HDL Cholesterol Urine pH Urine WBC (Auto) Urine Creatinine Urine Total Protein Fluid Total Protein Vancomycin Trough Rheumatoid Factor Complement C4 Miscellaneous Test Crossmatch 10/15/16 10/15/16 10/15/16 05:06 12:26 17:48 WBC RBC Hgb Hct MCV MCH MCHC RDW Plt Count Lymph % (Auto) [place] % (Auto) Lymph # [place] # Baso # Seg Neutrophils % Seg Neuts % (Manual) Lymphocytes % (Manual) Monocytes % (Manual) Eosinophils % (Manual) Basophils % (Manual) Nucleated RBC % Seg Neutrophils # Seg Neutrophils # Man Lymphocytes # (Manual) Monocytes # (Manual) Eosinophils # (Manual) PT INR Fibrinogen dRVVT Confirm Interp Factor V Activity POC ABG pH POC ABG pCO2 POC ABG pO2 ABG pO2 ABG HCO3 ABG Base Excess ABG Hemoglobin Oxyhemoglobin Sodium Potassium Chloride Carbon Dioxide BUN Creatinine Glucose POC Glucose 151 H 149 H 153 H Lactic Acid Calcium Phosphorus Magnesium Direct Bilirubin AST ALT Alkaline Phosphatase Lactate Dehydrogenase Troponin T C-Reactive Protein Total Protein Albumin Prealbumin Triglycerides Cholesterol LDL Cholesterol Direct HDL Cholesterol Urine pH Urine WBC (Auto) Urine Creatinine Urine Total Protein Fluid Total Protein Vancomycin Trough Rheumatoid Factor Complement C4 Miscellaneous Test Crossmatch 10/15/16 10/15/16 10/16/16 Unknown Unknown 00:02 WBC 23.4 H RBC 2.78 L Hgb 8.5 L Hct 25.7 L MCV MCH MCHC RDW 18.7 H Plt Count Lymph % (Auto) [place] % (Auto) Lymph # [place] # Baso # Seg Neutrophils % Seg Neuts % (Manual) Lymphocytes % (Manual) Monocytes % (Manual) Eosinophils % (Manual) Basophils % (Manual) Nucleated RBC % Seg Neutrophils # Seg Neutrophils # Man Lymphocytes # (Manual) Monocytes # (Manual) Eosinophils # (Manual) PT INR Fibrinogen dRVVT Confirm Interp Factor V Activity POC ABG pH POC ABG pCO2 POC ABG pO2 ABG pO2 ABG HCO3 ABG Base Excess ABG Hemoglobin Oxyhemoglobin Sodium Potassium Chloride Carbon Dioxide BUN 73 H Creatinine 2.3 H Glucose 120 H POC Glucose 137 H Lactic Acid Calcium Phosphorus Magnesium Direct Bilirubin AST ALT Alkaline Phosphatase Lactate Dehydrogenase Troponin T C-Reactive Protein Total Protein Albumin Prealbumin Triglycerides Cholesterol LDL Cholesterol Direct HDL Cholesterol Urine pH Urine WBC (Auto) Urine Creatinine Urine Total Protein Fluid Total Protein Vancomycin Trough Rheumatoid Factor Complement C4 Miscellaneous Test Crossmatch 10/16/16 10/16/16 10/16/16 05:44 06:25 06:25 WBC 22.5 H RBC 2.76 L Hgb 8.3 L Hct 25.2 L MCV MCH MCHC RDW 18.3 H Plt Count Lymph % (Auto) [place] % (Auto) Lymph # [place] # Baso # Seg Neutrophils % Seg Neuts % (Manual) Lymphocytes % (Manual) Monocytes % (Manual) Eosinophils % (Manual) Basophils % (Manual) Nucleated RBC % Seg Neutrophils # Seg Neutrophils # Man Lymphocytes # (Manual) Monocytes # (Manual) Eosinophils # (Manual) PT INR Fibrinogen dRVVT Confirm Interp Factor V Activity POC ABG pH POC ABG pCO2 POC ABG pO2 ABG pO2 ABG HCO3 ABG Base Excess ABG Hemoglobin Oxyhemoglobin Sodium Potassium Chloride Carbon Dioxide BUN 92 H Creatinine 3.0 H Glucose 138 H POC Glucose 110 H Lactic Acid Calcium Phosphorus Magnesium Direct Bilirubin AST ALT Alkaline Phosphatase Lactate Dehydrogenase Troponin T C-Reactive Protein Total Protein Albumin Prealbumin Triglycerides Cholesterol LDL Cholesterol Direct HDL Cholesterol Urine pH Urine WBC (Auto) Urine Creatinine Urine Total Protein Fluid Total Protein Vancomycin Trough Rheumatoid Factor Complement C4 Miscellaneous Test Crossmatch 10/16/16 10/16/16 10/16/16 11:27 11:48 17:36 WBC RBC Hgb Hct MCV MCH MCHC RDW Plt Count Lymph % (Auto) [place] % (Auto) Lymph # [place] # Baso # Seg Neutrophils % Seg Neuts % (Manual) Lymphocytes % (Manual) Monocytes % (Manual) Eosinophils % (Manual) Basophils % (Manual) Nucleated RBC % Seg Neutrophils # Seg Neutrophils # Man Lymphocytes # (Manual) Monocytes # (Manual) Eosinophils # (Manual) PT INR Fibrinogen dRVVT Confirm Interp Factor V Activity POC ABG pH 7.582 H POC ABG pCO2 27.4 L POC ABG pO2 110 H ABG pO2 ABG HCO3 ABG Base Excess ABG Hemoglobin Oxyhemoglobin Sodium Potassium Chloride Carbon Dioxide BUN Creatinine Glucose POC Glucose 121 H 133 H Lactic Acid Calcium Phosphorus Magnesium Direct Bilirubin AST ALT Alkaline Phosphatase Lactate Dehydrogenase Troponin T C-Reactive Protein Total Protein Albumin Prealbumin Triglycerides Cholesterol LDL Cholesterol Direct HDL Cholesterol Urine pH Urine WBC (Auto) Urine Creatinine Urine Total Protein Fluid Total Protein Vancomycin Trough Rheumatoid Factor Complement C4 Miscellaneous Test Crossmatch 10/16/16 10/17/16 10/17/16 20:48 04:24 04:24 WBC 21.4 H RBC 2.72 L Hgb 8.0 L Hct 25.2 L MCV MCH MCHC RDW 18.0 H Plt Count Lymph % (Auto) [place] % (Auto) Lymph # [place] # Baso # Seg Neutrophils % Seg Neuts % (Manual) Lymphocytes % (Manual) Monocytes % (Manual) Eosinophils % (Manual) Basophils % (Manual) Nucleated RBC % Seg Neutrophils # Seg Neutrophils # Man Lymphocytes # (Manual) Monocytes # (Manual) Eosinophils # (Manual) PT INR Fibrinogen dRVVT Confirm Interp Factor V Activity POC ABG pH 7.561 H POC ABG pCO2 24.4 L POC ABG pO2 77 L ABG pO2 ABG HCO3 ABG Base Excess ABG Hemoglobin Oxyhemoglobin Sodium 148 H Potassium Chloride Carbon Dioxide BUN 104 H Creatinine 3.0 H Glucose 149 H POC Glucose Lactic Acid Calcium Phosphorus Magnesium Direct Bilirubin AST ALT Alkaline Phosphatase 138 H Lactate Dehydrogenase Troponin T C-Reactive Protein Total Protein 6.2 L Albumin 1.5 L Prealbumin Triglycerides Cholesterol LDL Cholesterol Direct HDL Cholesterol Urine pH Urine WBC (Auto) Urine Creatinine Urine Total Protein Fluid Total Protein Vancomycin Trough Rheumatoid Factor Complement C4 Miscellaneous Test Crossmatch 10/17/16 10/17/16 10/17/16 06:02 12:17 17:14 WBC RBC Hgb Hct MCV MCH MCHC RDW Plt Count Lymph % (Auto) [place] % (Auto) Lymph # [place] # Baso # Seg Neutrophils % Seg Neuts % (Manual) Lymphocytes % (Manual) Monocytes % (Manual) Eosinophils % (Manual) Basophils % (Manual) Nucleated RBC % Seg Neutrophils # Seg Neutrophils # Man Lymphocytes # (Manual) Monocytes # (Manual) Eosinophils # (Manual) PT INR Fibrinogen dRVVT Confirm Interp Factor V Activity POC ABG pH POC ABG pCO2 POC ABG pO2 ABG pO2 ABG HCO3 ABG Base Excess ABG Hemoglobin Oxyhemoglobin Sodium Potassium Chloride Carbon Dioxide BUN Creatinine Glucose POC Glucose 170 H 167 H 126 H Lactic Acid Calcium Phosphorus Magnesium Direct Bilirubin AST ALT Alkaline Phosphatase Lactate Dehydrogenase Troponin T C-Reactive Protein Total Protein Albumin Prealbumin Triglycerides Cholesterol LDL Cholesterol Direct HDL Cholesterol Urine pH Urine WBC (Auto) Urine Creatinine Urine Total Protein Fluid Total Protein Vancomycin Trough Rheumatoid Factor Complement C4 Miscellaneous Test Crossmatch 10/17/16 10/18/16 10/18/16 23:17 04:00 04:00 WBC 20.7 H RBC 2.47 L Hgb 7.4 L Hct 22.9 L MCV MCH MCHC RDW 17.5 H Plt Count Lymph % (Auto) [place] % (Auto) Lymph # [place] # Baso # Seg Neutrophils % Seg Neuts % (Manual) Lymphocytes % (Manual) Monocytes % (Manual) Eosinophils % (Manual) Basophils % (Manual) Nucleated RBC % Seg Neutrophils # Seg Neutrophils # Man Lymphocytes # (Manual) Monocytes # (Manual) Eosinophils # (Manual) PT INR Fibrinogen dRVVT Confirm Interp Factor V Activity POC ABG pH POC ABG pCO2 POC ABG pO2 ABG pO2 ABG HCO3 ABG Base Excess ABG Hemoglobin Oxyhemoglobin Sodium 149 H Potassium Chloride 107.9 H Carbon Dioxide 20 L BUN 117 H Creatinine 3.2 H Glucose 119 H POC Glucose 121 H Lactic Acid Calcium Phosphorus Magnesium Direct Bilirubin AST ALT Alkaline Phosphatase Lactate Dehydrogenase Troponin T C-Reactive Protein Total Protein Albumin Prealbumin Triglycerides Cholesterol LDL Cholesterol Direct HDL Cholesterol Urine pH Urine WBC (Auto) Urine Creatinine Urine Total Protein Fluid Total Protein Vancomycin Trough Rheumatoid Factor Complement C4 Miscellaneous Test Crossmatch 10/18/16 10/18/16 10/18/16 05:23 10:46 17:30 WBC RBC Hgb Hct MCV MCH MCHC RDW Plt Count Lymph % (Auto) [place] % (Auto) Lymph # [place] # Baso # Seg Neutrophils % Seg Neuts % (Manual) Lymphocytes % (Manual) Monocytes % (Manual) Eosinophils % (Manual) Basophils % (Manual) Nucleated RBC % Seg Neutrophils # Seg Neutrophils # Man Lymphocytes # (Manual) Monocytes # (Manual) Eosinophils # (Manual) PT INR Fibrinogen dRVVT Confirm Interp Factor V Activity POC ABG pH POC ABG pCO2 POC ABG pO2 ABG pO2 ABG HCO3 ABG Base Excess ABG Hemoglobin Oxyhemoglobin Sodium Potassium Chloride Carbon Dioxide BUN Creatinine Glucose POC Glucose 119 H 155 H 124 H Lactic Acid Calcium Phosphorus Magnesium Direct Bilirubin AST ALT Alkaline Phosphatase Lactate Dehydrogenase Troponin T C-Reactive Protein Total Protein Albumin Prealbumin Triglycerides Cholesterol LDL Cholesterol Direct HDL Cholesterol Urine pH Urine WBC (Auto) Urine Creatinine Urine Total Protein Fluid Total Protein Vancomycin Trough Rheumatoid Factor Complement C4 Miscellaneous Test Crossmatch 10/19/16 10/19/16 10/19/16 04:00 04:00 05:25 WBC 17.4 H RBC 2.54 L Hgb 7.7 L Hct 23.6 L MCV MCH MCHC RDW 17.3 H Plt Count Lymph % (Auto) [place] % (Auto) Lymph # [place] # Baso # Seg Neutrophils % Seg Neuts % (Manual) Lymphocytes % (Manual) Monocytes % (Manual) Eosinophils % (Manual) Basophils % (Manual) Nucleated RBC % Seg Neutrophils # Seg Neutrophils # Man Lymphocytes # (Manual) Monocytes # (Manual) Eosinophils # (Manual) PT INR Fibrinogen dRVVT Confirm Interp Factor V Activity POC ABG pH POC ABG pCO2 POC ABG pO2 ABG pO2 ABG HCO3 ABG Base Excess ABG Hemoglobin Oxyhemoglobin Sodium Potassium Chloride Carbon Dioxide BUN 72 H Creatinine 2.1 H Glucose 116 H POC Glucose 119 H Lactic Acid Calcium Phosphorus Magnesium Direct Bilirubin AST ALT Alkaline Phosphatase Lactate Dehydrogenase Troponin T C-Reactive Protein Total Protein Albumin Prealbumin Triglycerides Cholesterol LDL Cholesterol Direct HDL Cholesterol Urine pH Urine WBC (Auto) Urine Creatinine Urine Total Protein Fluid Total Protein Vancomycin Trough Rheumatoid Factor Complement C4 Miscellaneous Test Crossmatch 10/19/16 10/19/16 10/20/16 11:46 23:59 06:00 WBC RBC Hgb Hct MCV MCH MCHC RDW Plt Count Lymph % (Auto) [place] % (Auto) Lymph # [place] # Baso # Seg Neutrophils % Seg Neuts % (Manual) Lymphocytes % (Manual) Monocytes % (Manual) Eosinophils % (Manual) Basophils % (Manual) Nucleated RBC % Seg Neutrophils # Seg Neutrophils # Man Lymphocytes # (Manual) Monocytes # (Manual) Eosinophils # (Manual) PT INR Fibrinogen dRVVT Confirm Interp Factor V Activity POC ABG pH POC ABG pCO2 POC ABG pO2 ABG pO2 ABG HCO3 ABG Base Excess ABG Hemoglobin Oxyhemoglobin Sodium Potassium Chloride Carbon Dioxide 17 L BUN 94 H Creatinine 2.7 H Glucose POC Glucose 116 H 117 H Lactic Acid Calcium Phosphorus Magnesium Direct Bilirubin AST ALT Alkaline Phosphatase Lactate Dehydrogenase Troponin T C-Reactive Protein Total Protein Albumin Prealbumin Triglycerides Cholesterol LDL Cholesterol Direct HDL Cholesterol Urine pH Urine WBC (Auto) Urine Creatinine Urine Total Protein Fluid Total Protein Vancomycin Trough Rheumatoid Factor Complement C4 Miscellaneous Test Crossmatch 10/20/16 10/20/16 10/20/16 06:00 11:49 16:00 WBC 19.7 H RBC 2.51 L Hgb 7.7 L Hct 23.5 L MCV MCH MCHC RDW 17.5 H Plt Count Lymph % (Auto) [place] % (Auto) Lymph # [place] # Baso # Seg Neutrophils % Seg Neuts % (Manual) Lymphocytes % (Manual) Monocytes % (Manual) Eosinophils % (Manual) Basophils % (Manual) Nucleated RBC % Seg Neutrophils # Seg Neutrophils # Man Lymphocytes # (Manual) Monocytes # (Manual) Eosinophils # (Manual) PT INR Fibrinogen dRVVT Confirm Interp Factor V Activity POC ABG pH POC ABG pCO2 POC ABG pO2 ABG pO2 ABG HCO3 ABG Base Excess ABG Hemoglobin Oxyhemoglobin Sodium Potassium Chloride Carbon Dioxide BUN Creatinine Glucose POC Glucose 117 H Lactic Acid Calcium Phosphorus Magnesium Direct Bilirubin AST ALT Alkaline Phosphatase Lactate Dehydrogenase Troponin T C-Reactive Protein Total Protein Albumin Prealbumin Triglycerides Cholesterol LDL Cholesterol Direct HDL Cholesterol Urine pH Urine WBC (Auto) Urine Creatinine Urine Total Protein Fluid Total Protein Vancomycin Trough Rheumatoid Factor Complement C4 Miscellaneous Test Flexitest 1 H Crossmatch 10/20/16 10/20/16 10/21/16 18:36 23:39 04:00 WBC RBC Hgb Hct MCV MCH MCHC RDW Plt Count Lymph % (Auto) [place] % (Auto) Lymph # [place] # Baso # Seg Neutrophils % Seg Neuts % (Manual) Lymphocytes % (Manual) Monocytes % (Manual) Eosinophils % (Manual) Basophils % (Manual) Nucleated RBC % Seg Neutrophils # Seg Neutrophils # Man Lymphocytes # (Manual) Monocytes # (Manual) Eosinophils # (Manual) PT INR Fibrinogen dRVVT Confirm Interp Factor V Activity POC ABG pH POC ABG pCO2 POC ABG pO2 ABG pO2 ABG HCO3 ABG Base Excess ABG Hemoglobin Oxyhemoglobin Sodium Potassium 5.4 H D Chloride Carbon Dioxide 15 L BUN 110 H Creatinine 3.0 H Glucose POC Glucose 127 H 114 H Lactic Acid Calcium Phosphorus Magnesium Direct Bilirubin AST ALT Alkaline Phosphatase Lactate Dehydrogenase Troponin T C-Reactive Protein Total Protein Albumin Prealbumin Triglycerides Cholesterol LDL Cholesterol Direct HDL Cholesterol Urine pH Urine WBC (Auto) Urine Creatinine Urine Total Protein Fluid Total Protein Vancomycin Trough Rheumatoid Factor Complement C4 Miscellaneous Test Crossmatch 10/21/16 10/21/16 10/22/16 05:54 23:46 05:18 WBC RBC Hgb Hct MCV MCH MCHC RDW Plt Count Lymph % (Auto) [place] % (Auto) Lymph # [place] # Baso # Seg Neutrophils % Seg Neuts % (Manual) Lymphocytes % (Manual) Monocytes % (Manual) Eosinophils % (Manual) Basophils % (Manual) Nucleated RBC % Seg Neutrophils # Seg Neutrophils # Man Lymphocytes # (Manual) Monocytes # (Manual) Eosinophils # (Manual) PT INR Fibrinogen dRVVT Confirm Interp Factor V Activity POC ABG pH POC ABG pCO2 POC ABG pO2 ABG pO2 ABG HCO3 ABG Base Excess ABG Hemoglobin Oxyhemoglobin Sodium Potassium Chloride Carbon Dioxide BUN Creatinine Glucose POC Glucose 119 H 108 H 109 H Lactic Acid Calcium Phosphorus Magnesium Direct Bilirubin AST ALT Alkaline Phosphatase Lactate Dehydrogenase Troponin T C-Reactive Protein Total Protein Albumin Prealbumin Triglycerides Cholesterol LDL Cholesterol Direct HDL Cholesterol Urine pH Urine WBC (Auto) Urine Creatinine Urine Total Protein Fluid Total Protein Vancomycin Trough Rheumatoid Factor Complement C4 Miscellaneous Test Crossmatch 10/22/16 10/22/16 10/22/16 06:40 06:40 06:40 WBC 14.0 H RBC 2.03 L Hgb 7.0 L Hct 20.5 L MCV 98 H MCH 34 H MCHC 35 H RDW 17.8 H Plt Count Lymph % (Auto) [place] % (Auto) 9.9 H Lymph # [place] # 1.4 H Baso # 0.2 H Seg Neutrophils % 72.0 H Seg Neuts % (Manual) Lymphocytes % (Manual) Monocytes % (Manual) Eosinophils % (Manual) Basophils % (Manual) Nucleated RBC % Seg Neutrophils # 10.0 H Seg Neutrophils # Man Lymphocytes # (Manual) Monocytes # (Manual) Eosinophils # (Manual) PT INR Fibrinogen dRVVT Confirm Interp Factor V Activity POC ABG pH POC ABG pCO2 POC ABG pO2 ABG pO2 ABG HCO3 ABG Base Excess ABG Hemoglobin Oxyhemoglobin Sodium 130 L D Potassium Chloride 92.4 L Carbon Dioxide 20 L BUN 50 H Creatinine 1.6 H Glucose 589 H* POC Glucose Lactic Acid Calcium 7.8 L D Phosphorus Magnesium 1.60 L Direct Bilirubin AST ALT Alkaline Phosphatase Lactate Dehydrogenase Troponin T C-Reactive Protein Total Protein Albumin Prealbumin Triglycerides Cholesterol LDL Cholesterol Direct HDL Cholesterol Urine pH Urine WBC (Auto) Urine Creatinine Urine Total Protein Fluid Total Protein Vancomycin Trough Rheumatoid Factor Complement C4 Miscellaneous Test Crossmatch 10/22/16 10/22/16 10/22/16 11:39 16:44 23:36 WBC RBC Hgb Hct MCV MCH MCHC RDW Plt Count Lymph % (Auto) [place] % (Auto) Lymph # [place] # Baso # Seg Neutrophils % Seg Neuts % (Manual) Lymphocytes % (Manual) Monocytes % (Manual) Eosinophils % (Manual) Basophils % (Manual) Nucleated RBC % Seg Neutrophils # Seg Neutrophils # Man Lymphocytes # (Manual) Monocytes # (Manual) Eosinophils # (Manual) PT INR Fibrinogen dRVVT Confirm Interp Factor V Activity POC ABG pH POC ABG pCO2 POC ABG pO2 ABG pO2 ABG HCO3 ABG Base Excess ABG Hemoglobin Oxyhemoglobin Sodium Potassium Chloride Carbon Dioxide BUN Creatinine Glucose POC Glucose 142 H 163 H 123 H Lactic Acid Calcium Phosphorus Magnesium Direct Bilirubin AST ALT Alkaline Phosphatase Lactate Dehydrogenase Troponin T C-Reactive Protein Total Protein Albumin Prealbumin Triglycerides Cholesterol LDL Cholesterol Direct HDL Cholesterol Urine pH Urine WBC (Auto) Urine Creatinine Urine Total Protein Fluid Total Protein Vancomycin Trough Rheumatoid Factor Complement C4 Miscellaneous Test Crossmatch 10/23/16 10/23/16 10/23/16 04:58 06:00 12:12 WBC RBC Hgb Hct MCV MCH MCHC RDW Plt Count Lymph % (Auto) [place] % (Auto) Lymph # [place] # Baso # Seg Neutrophils % Seg Neuts % (Manual) Lymphocytes % (Manual) Monocytes % (Manual) Eosinophils % (Manual) Basophils % (Manual) Nucleated RBC % Seg Neutrophils # Seg Neutrophils # Man Lymphocytes # (Manual) Monocytes # (Manual) Eosinophils # (Manual) PT INR Fibrinogen dRVVT Confirm Interp Factor V Activity POC ABG pH POC ABG pCO2 POC ABG pO2 ABG pO2 ABG HCO3 ABG Base Excess ABG Hemoglobin Oxyhemoglobin Sodium 133 L Potassium 3.5 L Chloride 96.1 L Carbon Dioxide 18 L BUN 76 H Creatinine 2.1 H Glucose POC Glucose 133 H 138 H Lactic Acid Calcium 8.3 L Phosphorus Magnesium Direct Bilirubin AST ALT Alkaline Phosphatase Lactate Dehydrogenase Troponin T C-Reactive Protein Total Protein Albumin Prealbumin Triglycerides Cholesterol LDL Cholesterol Direct HDL Cholesterol Urine pH Urine WBC (Auto) Urine Creatinine Urine Total Protein Fluid Total Protein Vancomycin Trough Rheumatoid Factor Complement C4 Miscellaneous Test Crossmatch 10/23/16 10/23/16 10/24/16 16:53 23:37 04:00 WBC RBC Hgb Hct MCV MCH MCHC RDW Plt Count Lymph % (Auto) [place] % (Auto) Lymph # [place] # Baso # Seg Neutrophils % Seg Neuts % (Manual) Lymphocytes % (Manual) Monocytes % (Manual) Eosinophils % (Manual) Basophils % (Manual) Nucleated RBC % Seg Neutrophils # Seg Neutrophils # Man Lymphocytes # (Manual) Monocytes # (Manual) Eosinophils # (Manual) PT INR Fibrinogen dRVVT Confirm Interp Factor V Activity POC ABG pH POC ABG pCO2 POC ABG pO2 ABG pO2 ABG HCO3 ABG Base Excess ABG Hemoglobin Oxyhemoglobin Sodium 131 L Potassium Chloride 94.5 L Carbon Dioxide 19 L BUN 97 H Creatinine 2.6 H Glucose 110 H POC Glucose 125 H 123 H Lactic Acid Calcium 8.3 L Phosphorus Magnesium Direct Bilirubin AST ALT Alkaline Phosphatase Lactate Dehydrogenase Troponin T C-Reactive Protein Total Protein Albumin Prealbumin Triglycerides Cholesterol LDL Cholesterol Direct HDL Cholesterol Urine pH Urine WBC (Auto) Urine Creatinine Urine Total Protein Fluid Total Protein Vancomycin Trough Rheumatoid Factor Complement C4 Miscellaneous Test Crossmatch 10/24/16 10/24/16 10/24/16 07:49 11:39 17:52 WBC RBC Hgb 6.0 L Hct 19.7 L* MCV MCH MCHC RDW Plt Count Lymph % (Auto) [place] % (Auto) Lymph # [place] # Baso # Seg Neutrophils % Seg Neuts % (Manual) Lymphocytes % (Manual) Monocytes % (Manual) Eosinophils % (Manual) Basophils % (Manual) Nucleated RBC % Seg Neutrophils # Seg Neutrophils # Man Lymphocytes # (Manual) Monocytes # (Manual) Eosinophils # (Manual) PT INR Fibrinogen dRVVT Confirm Interp Factor V Activity POC ABG pH POC ABG pCO2 POC ABG pO2 ABG pO2 ABG HCO3 ABG Base Excess ABG Hemoglobin Oxyhemoglobin Sodium Potassium Chloride Carbon Dioxide BUN Creatinine Glucose POC Glucose 106 H 158 H Lactic Acid Calcium Phosphorus Magnesium Direct Bilirubin AST ALT Alkaline Phosphatase Lactate Dehydrogenase Troponin T C-Reactive Protein Total Protein Albumin Prealbumin Triglycerides Cholesterol LDL Cholesterol Direct HDL Cholesterol Urine pH Urine WBC (Auto) Urine Creatinine Urine Total Protein Fluid Total Protein Vancomycin Trough Rheumatoid Factor Complement C4 Miscellaneous Test Crossmatch 10/24/16 10/24/16 10/24/16 20:00 22:27 Unknown WBC RBC Hgb 9.4 L D Hct 27.5 L D MCV MCH MCHC RDW Plt Count Lymph % (Auto) [place] % (Auto) Lymph # [place] # Baso # Seg Neutrophils % Seg Neuts % (Manual) Lymphocytes % (Manual) Monocytes % (Manual) Eosinophils % (Manual) Basophils % (Manual) Nucleated RBC % Seg Neutrophils # Seg Neutrophils # Man Lymphocytes # (Manual) Monocytes # (Manual) Eosinophils # (Manual) PT INR Fibrinogen dRVVT Confirm Interp Factor V Activity POC ABG pH POC ABG pCO2 POC ABG pO2 ABG pO2 ABG HCO3 ABG Base Excess ABG Hemoglobin Oxyhemoglobin Sodium Potassium Chloride Carbon Dioxide BUN Creatinine Glucose POC Glucose 125 H Lactic Acid Calcium Phosphorus Magnesium Direct Bilirubin AST ALT Alkaline Phosphatase Lactate Dehydrogenase Troponin T C-Reactive Protein Total Protein Albumin Prealbumin Triglycerides Cholesterol LDL Cholesterol Direct HDL Cholesterol Urine pH Urine WBC (Auto) Urine Creatinine Urine Total Protein Fluid Total Protein Vancomycin Trough Rheumatoid Factor Complement C4 Miscellaneous Test Crossmatch See Detail 10/25/16 10/25/16 10/25/16 04:00 04:00 04:00 WBC 14.2 H RBC 2.98 L Hgb 9.0 L Hct 26.2 L MCV MCH MCHC RDW 16.6 H Plt Count Lymph % (Auto) [place] % (Auto) 10.7 H Lymph # [place] # 1.5 H Baso # Seg Neutrophils % 73.6 H Seg Neuts % (Manual) Lymphocytes % (Manual) Monocytes % (Manual) Eosinophils % (Manual) Basophils % (Manual) Nucleated RBC % Seg Neutrophils # 10.5 H Seg Neutrophils # Man Lymphocytes # (Manual) Monocytes # (Manual) Eosinophils # (Manual) PT INR Fibrinogen dRVVT Confirm Interp Factor V Activity POC ABG pH POC ABG pCO2 POC ABG pO2 ABG pO2 ABG HCO3 ABG Base Excess ABG Hemoglobin Oxyhemoglobin Sodium 132 L Potassium Chloride 94.7 L Carbon Dioxide BUN 51 H Creatinine 1.6 H Glucose 130 H POC Glucose Lactic Acid Calcium 8.3 L Phosphorus 1.60 L D Magnesium Direct Bilirubin AST ALT Alkaline Phosphatase Lactate Dehydrogenase Troponin T C-Reactive Protein Total Protein Albumin Prealbumin Triglycerides Cholesterol LDL Cholesterol Direct HDL Cholesterol Urine pH Urine WBC (Auto) Urine Creatinine Urine Total Protein Fluid Total Protein Vancomycin Trough Rheumatoid Factor Complement C4 Miscellaneous Test Crossmatch 10/25/16 10/25/16 10/25/16 04:32 11:48 17:22 WBC RBC Hgb Hct MCV MCH MCHC RDW Plt Count Lymph % (Auto) [place] % (Auto) Lymph # [place] # Baso # Seg Neutrophils % Seg Neuts % (Manual) Lymphocytes % (Manual) Monocytes % (Manual) Eosinophils % (Manual) Basophils % (Manual) Nucleated RBC % Seg Neutrophils # Seg Neutrophils # Man Lymphocytes # (Manual) Monocytes # (Manual) Eosinophils # (Manual) PT INR Fibrinogen dRVVT Confirm Interp Factor V Activity POC ABG pH POC ABG pCO2 POC ABG pO2 ABG pO2 ABG HCO3 ABG Base Excess ABG Hemoglobin Oxyhemoglobin Sodium Potassium Chloride Carbon Dioxide BUN Creatinine Glucose POC Glucose 124 H 171 H 120 H Lactic Acid Calcium Phosphorus Magnesium Direct Bilirubin AST ALT Alkaline Phosphatase Lactate Dehydrogenase Troponin T C-Reactive Protein Total Protein Albumin Prealbumin Triglycerides Cholesterol LDL Cholesterol Direct HDL Cholesterol Urine pH Urine WBC (Auto) Urine Creatinine Urine Total Protein Fluid Total Protein Vancomycin Trough Rheumatoid Factor Complement C4 Miscellaneous Test Crossmatch 10/26/16 10/26/16 10/26/16 04:54 07:06 07:06 WBC 16.9 H RBC 3.06 L Hgb 9.1 L Hct 26.9 L MCV MCH MCHC RDW 16.9 H Plt Count Lymph % (Auto) [place] % (Auto) Lymph # [place] # Baso # Seg Neutrophils % Seg Neuts % (Manual) 71.0 H Lymphocytes % (Manual) 5.0 L Monocytes % (Manual) 12.0 H Eosinophils % (Manual) Basophils % (Manual) Nucleated RBC % Seg Neutrophils # Seg Neutrophils # Man 12.0 H Lymphocytes # (Manual) 0.8 L Monocytes # (Manual) 2.0 H Eosinophils # (Manual) PT INR Fibrinogen dRVVT Confirm Interp Factor V Activity POC ABG pH POC ABG pCO2 POC ABG pO2 ABG pO2 ABG HCO3 ABG Base Excess ABG Hemoglobin Oxyhemoglobin Sodium 135 L Potassium Chloride 97.1 L Carbon Dioxide BUN 73 H Creatinine 2.2 H Glucose 117 H POC Glucose 123 H Lactic Acid Calcium Phosphorus 1.70 L Magnesium Direct Bilirubin AST ALT Alkaline Phosphatase Lactate Dehydrogenase Troponin T C-Reactive Protein Total Protein Albumin Prealbumin Triglycerides Cholesterol LDL Cholesterol Direct HDL Cholesterol Urine pH Urine WBC (Auto) Urine Creatinine Urine Total Protein Fluid Total Protein Vancomycin Trough Rheumatoid Factor Complement C4 Miscellaneous Test Crossmatch 10/26/16 10/26/16 10/26/16 12:12 17:29 23:42 WBC RBC Hgb Hct MCV MCH MCHC RDW Plt Count Lymph % (Auto) [place] % (Auto) Lymph # [place] # Baso # Seg Neutrophils % Seg Neuts % (Manual) Lymphocytes % (Manual) Monocytes % (Manual) Eosinophils % (Manual) Basophils % (Manual) Nucleated RBC % Seg Neutrophils # Seg Neutrophils # Man Lymphocytes # (Manual) Monocytes # (Manual) Eosinophils # (Manual) PT INR Fibrinogen dRVVT Confirm Interp Factor V Activity POC ABG pH POC ABG pCO2 POC ABG pO2 ABG pO2 ABG HCO3 ABG Base Excess ABG Hemoglobin Oxyhemoglobin Sodium Potassium Chloride Carbon Dioxide BUN Creatinine Glucose POC Glucose 126 H 161 H 118 H Lactic Acid Calcium Phosphorus Magnesium Direct Bilirubin AST ALT Alkaline Phosphatase Lactate Dehydrogenase Troponin T C-Reactive Protein Total Protein Albumin Prealbumin Triglycerides Cholesterol LDL Cholesterol Direct HDL Cholesterol Urine pH Urine WBC (Auto) Urine Creatinine Urine Total Protein Fluid Total Protein Vancomycin Trough Rheumatoid Factor Complement C4 Miscellaneous Test Crossmatch 10/27/16 10/27/16 10/27/16 05:03 06:30 06:30 WBC 13.9 H RBC 3.09 L Hgb 9.2 L Hct 27.5 L MCV MCH MCHC RDW 17.0 H Plt Count Lymph % (Auto) [place] % (Auto) Lymph # [place] # Baso # Seg Neutrophils % Seg Neuts % (Manual) 78.0 H Lymphocytes % (Manual) Monocytes % (Manual) Eosinophils % (Manual) Basophils % (Manual) Nucleated RBC % 2.0 H Seg Neutrophils # Seg Neutrophils # Man 10.8 H Lymphocytes # (Manual) Monocytes # (Manual) 1.0 H Eosinophils # (Manual) PT INR Fibrinogen dRVVT Confirm Interp Factor V Activity POC ABG pH POC ABG pCO2 POC ABG pO2 ABG pO2 ABG HCO3 ABG Base Excess ABG Hemoglobin Oxyhemoglobin Sodium Potassium Chloride Carbon Dioxide BUN 40 H Creatinine 1.5 H Glucose 135 H POC Glucose 107 H Lactic Acid Calcium 8.3 L Phosphorus 1.30 L D Magnesium Direct Bilirubin AST ALT Alkaline Phosphatase Lactate Dehydrogenase Troponin T C-Reactive Protein Total Protein Albumin Prealbumin Triglycerides Cholesterol LDL Cholesterol Direct HDL Cholesterol Urine pH Urine WBC (Auto) Urine Creatinine Urine Total Protein Fluid Total Protein Vancomycin Trough Rheumatoid Factor Complement C4 Miscellaneous Test Crossmatch 10/27/16 10/27/16 10/27/16 13:27 18:07 23:40 WBC RBC Hgb Hct MCV MCH MCHC RDW Plt Count Lymph % (Auto) [place] % (Auto) Lymph # [place] # Baso # Seg Neutrophils % Seg Neuts % (Manual) Lymphocytes % (Manual) Monocytes % (Manual) Eosinophils % (Manual) Basophils % (Manual) Nucleated RBC % Seg Neutrophils # Seg Neutrophils # Man Lymphocytes # (Manual) Monocytes # (Manual) Eosinophils # (Manual) PT INR Fibrinogen dRVVT Confirm Interp Factor V Activity POC ABG pH POC ABG pCO2 POC ABG pO2 ABG pO2 ABG HCO3 ABG Base Excess ABG Hemoglobin Oxyhemoglobin Sodium Potassium Chloride Carbon Dioxide BUN Creatinine Glucose POC Glucose 117 H 121 H 118 H Lactic Acid Calcium Phosphorus Magnesium Direct Bilirubin AST ALT Alkaline Phosphatase Lactate Dehydrogenase Troponin T C-Reactive Protein Total Protein Albumin Prealbumin Triglycerides Cholesterol LDL Cholesterol Direct HDL Cholesterol Urine pH Urine WBC (Auto) Urine Creatinine Urine Total Protein Fluid Total Protein Vancomycin Trough Rheumatoid Factor Complement C4 Miscellaneous Test Crossmatch 10/28/16 10/28/16 10/28/16 05:48 06:45 06:45 WBC 14.7 H RBC 3.05 L Hgb 9.0 L Hct 26.9 L MCV MCH MCHC RDW 16.8 H Plt Count Lymph % (Auto) 8.2 L [place] % (Auto) 8.4 H Lymph # [place] # 1.2 H Baso # Seg Neutrophils % 81.9 H Seg Neuts % (Manual) Lymphocytes % (Manual) Monocytes % (Manual) Eosinophils % (Manual) Basophils % (Manual) Nucleated RBC % Seg Neutrophils # 12.1 H Seg Neutrophils # Man Lymphocytes # (Manual) Monocytes # (Manual) Eosinophils # (Manual) PT INR Fibrinogen dRVVT Confirm Interp Factor V Activity POC ABG pH POC ABG pCO2 POC ABG pO2 ABG pO2 ABG HCO3 ABG Base Excess ABG Hemoglobin Oxyhemoglobin Sodium Potassium Chloride Carbon Dioxide BUN 60 H Creatinine 1.9 H Glucose 120 H POC Glucose 114 H Lactic Acid Calcium Phosphorus Magnesium Direct Bilirubin AST ALT Alkaline Phosphatase Lactate Dehydrogenase Troponin T C-Reactive Protein Total Protein Albumin Prealbumin Triglycerides Cholesterol LDL Cholesterol Direct HDL Cholesterol Urine pH Urine WBC (Auto) Urine Creatinine Urine Total Protein Fluid Total Protein Vancomycin Trough Rheumatoid Factor Complement C4 Miscellaneous Test Crossmatch 10/28/16 10/28/16 10/29/16 17:08 23:50 05:10 WBC RBC Hgb Hct MCV MCH MCHC RDW Plt Count Lymph % (Auto) [place] % (Auto) Lymph # [place] # Baso # Seg Neutrophils % Seg Neuts % (Manual) Lymphocytes % (Manual) Monocytes % (Manual) Eosinophils % (Manual) Basophils % (Manual) Nucleated RBC % Seg Neutrophils # Seg Neutrophils # Man Lymphocytes # (Manual) Monocytes # (Manual) Eosinophils # (Manual) PT INR Fibrinogen dRVVT Confirm Interp Factor V Activity POC ABG pH POC ABG pCO2 POC ABG pO2 ABG pO2 ABG HCO3 ABG Base Excess ABG Hemoglobin Oxyhemoglobin Sodium Potassium Chloride Carbon Dioxide BUN Creatinine Glucose POC Glucose 109 H 110 H 124 H Lactic Acid Calcium Phosphorus Magnesium Direct Bilirubin AST ALT Alkaline Phosphatase Lactate Dehydrogenase Troponin T C-Reactive Protein Total Protein Albumin Prealbumin Triglycerides Cholesterol LDL Cholesterol Direct HDL Cholesterol Urine pH Urine WBC (Auto) Urine Creatinine Urine Total Protein Fluid Total Protein Vancomycin Trough Rheumatoid Factor Complement C4 Miscellaneous Test Crossmatch 10/29/16 10/29/16 10/29/16 07:45 07:45 12:19 WBC 14.7 H RBC 3.15 L Hgb 9.3 L Hct 28.9 L MCV MCH MCHC RDW 17.0 H Plt Count Lymph % (Auto) 11.9 L [place] % (Auto) 8.6 H Lymph # [place] # 1.3 H Baso # Seg Neutrophils % 78.1 H Seg Neuts % (Manual) Lymphocytes % (Manual) Monocytes % (Manual) Eosinophils % (Manual) Basophils % (Manual) Nucleated RBC % Seg Neutrophils # 11.4 H Seg Neutrophils # Man Lymphocytes # (Manual) Monocytes # (Manual) Eosinophils # (Manual) PT INR Fibrinogen dRVVT Confirm Interp Factor V Activity POC ABG pH POC ABG pCO2 POC ABG pO2 ABG pO2 ABG HCO3 ABG Base Excess ABG Hemoglobin Oxyhemoglobin Sodium Potassium 5.1 H Chloride Carbon Dioxide 19 L BUN 78 H Creatinine 2.2 H Glucose 116 H POC Glucose 118 H Lactic Acid Calcium Phosphorus Magnesium Direct Bilirubin AST ALT Alkaline Phosphatase Lactate Dehydrogenase Troponin T C-Reactive Protein Total Protein Albumin Prealbumin Triglycerides Cholesterol LDL Cholesterol Direct HDL Cholesterol Urine pH Urine WBC (Auto) Urine Creatinine Urine Total Protein Fluid Total Protein Vancomycin Trough Rheumatoid Factor Complement C4 Miscellaneous Test Crossmatch 10/29/16 10/30/16 10/30/16 17:49 01:52 03:28 WBC RBC Hgb Hct MCV MCH MCHC RDW Plt Count Lymph % (Auto) [place] % (Auto) Lymph # [place] # Baso # Seg Neutrophils % Seg Neuts % (Manual) Lymphocytes % (Manual) Monocytes % (Manual) Eosinophils % (Manual) Basophils % (Manual) Nucleated RBC % Seg Neutrophils # Seg Neutrophils # Man Lymphocytes # (Manual) Monocytes # (Manual) Eosinophils # (Manual) PT INR Fibrinogen dRVVT Confirm Interp Factor V Activity POC ABG pH POC ABG pCO2 POC ABG pO2 ABG pO2 ABG HCO3 ABG Base Excess ABG Hemoglobin Oxyhemoglobin Sodium Potassium 5.4 H Chloride 97.5 L Carbon Dioxide 19 L BUN 90 H Creatinine 2.5 H Glucose POC Glucose 120 H 129 H Lactic Acid Calcium Phosphorus 5.20 H Magnesium Direct Bilirubin AST ALT Alkaline Phosphatase Lactate Dehydrogenase Troponin T C-Reactive Protein Total Protein Albumin Prealbumin Triglycerides Cholesterol LDL Cholesterol Direct HDL Cholesterol Urine pH Urine WBC (Auto) Urine Creatinine Urine Total Protein Fluid Total Protein Vancomycin Trough Rheumatoid Factor Complement C4 Miscellaneous Test Crossmatch 10/30/16 10/30/16 10/30/16 03:28 08:19 08:19 WBC 11.6 H 15.9 H RBC 2.75 L 2.82 L Hgb 7.9 L 8.3 L Hct 24.2 L 25.2 L MCV MCH MCHC RDW 16.7 H 17.2 H Plt Count Lymph % (Auto) [place] % (Auto) 9.8 H Lymph # [place] # 1.1 H Baso # Seg Neutrophils % 74.2 H Seg Neuts % (Manual) Lymphocytes % (Manual) Monocytes % (Manual) Eosinophils % (Manual) Basophils % (Manual) Nucleated RBC % Seg Neutrophils # 8.6 H Seg Neutrophils # Man Lymphocytes # (Manual) Monocytes # (Manual) Eosinophils # (Manual) PT INR Fibrinogen dRVVT Confirm Interp Factor V Activity POC ABG pH POC ABG pCO2 POC ABG pO2 ABG pO2 ABG HCO3 ABG Base Excess ABG Hemoglobin Oxyhemoglobin Sodium Potassium 5.3 H Chloride 97.4 L Carbon Dioxide 19 L BUN 93 H Creatinine 2.6 H Glucose POC Glucose Lactic Acid Calcium Phosphorus Magnesium Direct Bilirubin AST ALT Alkaline Phosphatase Lactate Dehydrogenase Troponin T C-Reactive Protein Total Protein Albumin Prealbumin Triglycerides Cholesterol LDL Cholesterol Direct HDL Cholesterol Urine pH Urine WBC (Auto) Urine Creatinine Urine Total Protein Fluid Total Protein Vancomycin Trough Rheumatoid Factor Complement C4 Miscellaneous Test Crossmatch 10/30/16 10/30/16 10/31/16 17:11 23:56 00:40 WBC RBC Hgb Hct MCV MCH MCHC RDW Plt Count Lymph % (Auto) [place] % (Auto) Lymph # [place] # Baso # Seg Neutrophils % Seg Neuts % (Manual) Lymphocytes % (Manual) Monocytes % (Manual) Eosinophils % (Manual) Basophils % (Manual) Nucleated RBC % Seg Neutrophils # Seg Neutrophils # Man Lymphocytes # (Manual) Monocytes # (Manual) Eosinophils # (Manual) PT INR Fibrinogen dRVVT Confirm Interp Factor V Activity POC ABG pH POC ABG pCO2 POC ABG pO2 ABG pO2 ABG HCO3 ABG Base Excess ABG Hemoglobin Oxyhemoglobin Sodium Potassium Chloride Carbon Dioxide BUN Creatinine Glucose POC Glucose 106 H 117 H 120 H Lactic Acid Calcium Phosphorus Magnesium Direct Bilirubin AST ALT Alkaline Phosphatase Lactate Dehydrogenase Troponin T C-Reactive Protein Total Protein Albumin Prealbumin Triglycerides Cholesterol LDL Cholesterol Direct HDL Cholesterol Urine pH Urine WBC (Auto) Urine Creatinine Urine Total Protein Fluid Total Protein Vancomycin Trough Rheumatoid Factor Complement C4 Miscellaneous Test Crossmatch 10/31/16 10/31/16 10/31/16 05:43 07:15 07:15 WBC 12.1 H RBC 2.63 L Hgb 7.7 L Hct 23.3 L MCV MCH MCHC RDW 16.7 H Plt Count Lymph % (Auto) 11.7 L [place] % (Auto) 7.7 H Lymph # [place] # 0.9 H Baso # Seg Neutrophils % 78.0 H Seg Neuts % (Manual) Lymphocytes % (Manual) Monocytes % (Manual) Eosinophils % (Manual) Basophils % (Manual) Nucleated RBC % Seg Neutrophils # 9.4 H Seg Neutrophils # Man Lymphocytes # (Manual) Monocytes # (Manual) Eosinophils # (Manual) PT INR Fibrinogen dRVVT Confirm Interp Factor V Activity POC ABG pH POC ABG pCO2 POC ABG pO2 ABG pO2 ABG HCO3 ABG Base Excess ABG Hemoglobin Oxyhemoglobin Sodium Potassium Chloride 96.4 L Carbon Dioxide 21 L BUN 99 H Creatinine 2.6 H Glucose 144 H POC Glucose 125 H Lactic Acid Calcium Phosphorus 4.80 H Magnesium Direct Bilirubin AST ALT Alkaline Phosphatase Lactate Dehydrogenase Troponin T C-Reactive Protein Total Protein Albumin Prealbumin Triglycerides Cholesterol LDL Cholesterol Direct HDL Cholesterol Urine pH Urine WBC (Auto) Urine Creatinine Urine Total Protein Fluid Total Protein Vancomycin Trough Rheumatoid Factor Complement C4 Miscellaneous Test Crossmatch 10/31/16 10/31/16 11/01/16 11:46 18:34 00:20 WBC RBC Hgb Hct MCV MCH MCHC RDW Plt Count Lymph % (Auto) [place] % (Auto) Lymph # [place] # Baso # Seg Neutrophils % Seg Neuts % (Manual) Lymphocytes % (Manual) Monocytes % (Manual) Eosinophils % (Manual) Basophils % (Manual) Nucleated RBC % Seg Neutrophils # Seg Neutrophils # Man Lymphocytes # (Manual) Monocytes # (Manual) Eosinophils # (Manual) PT INR Fibrinogen dRVVT Confirm Interp Factor V Activity POC ABG pH POC ABG pCO2 POC ABG pO2 ABG pO2 ABG HCO3 ABG Base Excess ABG Hemoglobin Oxyhemoglobin Sodium Potassium Chloride Carbon Dioxide BUN Creatinine Glucose POC Glucose 159 H 140 H 132 H Lactic Acid Calcium Phosphorus Magnesium Direct Bilirubin AST ALT Alkaline Phosphatase Lactate Dehydrogenase Troponin T C-Reactive Protein Total Protein Albumin Prealbumin Triglycerides Cholesterol LDL Cholesterol Direct HDL Cholesterol Urine pH Urine WBC (Auto) Urine Creatinine Urine Total Protein Fluid Total Protein Vancomycin Trough Rheumatoid Factor Complement C4 Miscellaneous Test Crossmatch 11/01/16 11/01/16 11/01/16 04:55 04:55 06:11 WBC 11.2 H RBC 2.68 L Hgb 7.5 L Hct 23.7 L MCV MCH MCHC RDW 16.1 H Plt Count Lymph % (Auto) [place] % (Auto) 9.8 H Lymph # [place] # 1.1 H Baso # Seg Neutrophils % 70.8 H Seg Neuts % (Manual) Lymphocytes % (Manual) Monocytes % (Manual) Eosinophils % (Manual) Basophils % (Manual) Nucleated RBC % Seg Neutrophils # 7.9 H Seg Neutrophils # Man Lymphocytes # (Manual) Monocytes # (Manual) Eosinophils # (Manual) PT INR Fibrinogen dRVVT Confirm Interp Factor V Activity POC ABG pH POC ABG pCO2 POC ABG pO2 ABG pO2 ABG HCO3 ABG Base Excess ABG Hemoglobin Oxyhemoglobin Sodium Potassium 3.3 L D Chloride Carbon Dioxide BUN 61 H Creatinine 1.9 H Glucose 114 H POC Glucose 115 H Lactic Acid Calcium Phosphorus 1.80 L D Magnesium Direct Bilirubin AST ALT Alkaline Phosphatase Lactate Dehydrogenase Troponin T C-Reactive Protein Total Protein Albumin Prealbumin Triglycerides Cholesterol LDL Cholesterol Direct HDL Cholesterol Urine pH Urine WBC (Auto) Urine Creatinine Urine Total Protein Fluid Total Protein Vancomycin Trough Rheumatoid Factor Complement C4 Miscellaneous Test Crossmatch 11/01/16 11/01/16 11/01/16 12:29 18:23 23:58 WBC RBC Hgb Hct MCV MCH MCHC RDW Plt Count Lymph % (Auto) [place] % (Auto) Lymph # [place] # Baso # Seg Neutrophils % Seg Neuts % (Manual) Lymphocytes % (Manual) Monocytes % (Manual) Eosinophils % (Manual) Basophils % (Manual) Nucleated RBC % Seg Neutrophils # Seg Neutrophils # Man Lymphocytes # (Manual) Monocytes # (Manual) Eosinophils # (Manual) PT INR Fibrinogen dRVVT Confirm Interp Factor V Activity POC ABG pH POC ABG pCO2 POC ABG pO2 ABG pO2 ABG HCO3 ABG Base Excess ABG Hemoglobin Oxyhemoglobin Sodium Potassium Chloride Carbon Dioxide BUN Creatinine Glucose POC Glucose 142 H 143 H 128 H Lactic Acid Calcium Phosphorus Magnesium Direct Bilirubin AST ALT Alkaline Phosphatase Lactate Dehydrogenase Troponin T C-Reactive Protein Total Protein Albumin Prealbumin Triglycerides Cholesterol LDL Cholesterol Direct HDL Cholesterol Urine pH Urine WBC (Auto) Urine Creatinine Urine Total Protein Fluid Total Protein Vancomycin Trough Rheumatoid Factor Complement C4 Miscellaneous Test Crossmatch 11/02/16 11/02/16 11/02/16 04:16 05:29 11:58 WBC RBC Hgb Hct MCV MCH MCHC RDW Plt Count Lymph % (Auto) [place] % (Auto) Lymph # [place] # Baso # Seg Neutrophils % Seg Neuts % (Manual) Lymphocytes % (Manual) Monocytes % (Manual) Eosinophils % (Manual) Basophils % (Manual) Nucleated RBC % Seg Neutrophils # Seg Neutrophils # Man Lymphocytes # (Manual) Monocytes # (Manual) Eosinophils # (Manual) PT INR Fibrinogen dRVVT Confirm Interp Factor V Activity POC ABG pH POC ABG pCO2 POC ABG pO2 ABG pO2 ABG HCO3 ABG Base Excess ABG Hemoglobin Oxyhemoglobin Sodium Potassium 3.1 L Chloride Carbon Dioxide BUN 73 H Creatinine 2.3 H Glucose 112 H POC Glucose 135 H 149 H Lactic Acid Calcium Phosphorus Magnesium Direct Bilirubin AST ALT Alkaline Phosphatase Lactate Dehydrogenase Troponin T C-Reactive Protein Total Protein Albumin Prealbumin Triglycerides Cholesterol LDL Cholesterol Direct HDL Cholesterol Urine pH Urine WBC (Auto) Urine Creatinine Urine Total Protein Fluid Total Protein Vancomycin Trough Rheumatoid Factor Complement C4 Miscellaneous Test Crossmatch 11/02/16 11/02/16 11/03/16 17:42 22:54 06:00 WBC RBC Hgb Hct MCV MCH MCHC RDW Plt Count Lymph % (Auto) [place] % (Auto) Lymph # [place] # Baso # Seg Neutrophils % Seg Neuts % (Manual) Lymphocytes % (Manual) Monocytes % (Manual) Eosinophils % (Manual) Basophils % (Manual) Nucleated RBC % Seg Neutrophils # Seg Neutrophils # Man Lymphocytes # (Manual) Monocytes # (Manual) Eosinophils # (Manual) PT INR Fibrinogen dRVVT Confirm Interp Factor V Activity POC ABG pH POC ABG pCO2 POC ABG pO2 ABG pO2 ABG HCO3 ABG Base Excess ABG Hemoglobin Oxyhemoglobin Sodium Potassium Chloride 96.7 L Carbon Dioxide BUN 41 H Creatinine 1.5 H Glucose 145 H POC Glucose 182 H 115 H Lactic Acid Calcium Phosphorus 1.60 L D Magnesium 1.50 L Direct Bilirubin AST ALT Alkaline Phosphatase Lactate Dehydrogenase Troponin T C-Reactive Protein Total Protein Albumin Prealbumin Triglycerides Cholesterol LDL Cholesterol Direct HDL Cholesterol Urine pH Urine WBC (Auto) Urine Creatinine Urine Total Protein Fluid Total Protein Vancomycin Trough Rheumatoid Factor Complement C4 Miscellaneous Test Crossmatch 11/03/16 11/03/16 11/03/16 11:53 17:45 23:37 WBC RBC Hgb Hct MCV MCH MCHC RDW Plt Count Lymph % (Auto) [place] % (Auto) Lymph # [place] # Baso # Seg Neutrophils % Seg Neuts % (Manual) Lymphocytes % (Manual) Monocytes % (Manual) Eosinophils % (Manual) Basophils % (Manual) Nucleated RBC % Seg Neutrophils # Seg Neutrophils # Man Lymphocytes # (Manual) Monocytes # (Manual) Eosinophils # (Manual) PT INR Fibrinogen dRVVT Confirm Interp Factor V Activity POC ABG pH POC ABG pCO2 POC ABG pO2 ABG pO2 ABG HCO3 ABG Base Excess ABG Hemoglobin Oxyhemoglobin Sodium Potassium Chloride Carbon Dioxide BUN Creatinine Glucose POC Glucose 131 H 134 H 113 H Lactic Acid Calcium Phosphorus Magnesium Direct Bilirubin AST ALT Alkaline Phosphatase Lactate Dehydrogenase Troponin T C-Reactive Protein Total Protein Albumin Prealbumin Triglycerides Cholesterol LDL Cholesterol Direct HDL Cholesterol Urine pH Urine WBC (Auto) Urine Creatinine Urine Total Protein Fluid Total Protein Vancomycin Trough Rheumatoid Factor Complement C4 Miscellaneous Test Crossmatch 11/04/16 11/04/16 11/04/16 05:41 06:00 12:10 WBC RBC Hgb Hct MCV MCH MCHC RDW Plt Count Lymph % (Auto) [place] % (Auto) Lymph # [place] # Baso # Seg Neutrophils % Seg Neuts % (Manual) Lymphocytes % (Manual) Monocytes % (Manual) Eosinophils % (Manual) Basophils % (Manual) Nucleated RBC % Seg Neutrophils # Seg Neutrophils # Man Lymphocytes # (Manual) Monocytes # (Manual) Eosinophils # (Manual) PT INR Fibrinogen dRVVT Confirm Interp Factor V Activity POC ABG pH POC ABG pCO2 POC ABG pO2 ABG pO2 ABG HCO3 ABG Base Excess ABG Hemoglobin Oxyhemoglobin Sodium Potassium Chloride 96.7 L Carbon Dioxide BUN 52 H Creatinine 1.9 H Glucose 126 H POC Glucose 137 H 191 H Lactic Acid Calcium Phosphorus Magnesium Direct Bilirubin AST ALT Alkaline Phosphatase Lactate Dehydrogenase Troponin T C-Reactive Protein Total Protein Albumin Prealbumin Triglycerides Cholesterol LDL Cholesterol Direct HDL Cholesterol Urine pH Urine WBC (Auto) Urine Creatinine Urine Total Protein Fluid Total Protein Vancomycin Trough Rheumatoid Factor Complement C4 Miscellaneous Test Crossmatch 11/04/16 11/05/16 11/05/16 22:57 03:10 05:10 WBC RBC Hgb Hct MCV MCH MCHC RDW Plt Count Lymph % (Auto) [place] % (Auto) Lymph # [place] # Baso # Seg Neutrophils % Seg Neuts % (Manual) Lymphocytes % (Manual) Monocytes % (Manual) Eosinophils % (Manual) Basophils % (Manual) Nucleated RBC % Seg Neutrophils # Seg Neutrophils # Man Lymphocytes # (Manual) Monocytes # (Manual) Eosinophils # (Manual) PT INR Fibrinogen dRVVT Confirm Interp Factor V Activity POC ABG pH POC ABG pCO2 POC ABG pO2 ABG pO2 ABG HCO3 ABG Base Excess ABG Hemoglobin Oxyhemoglobin Sodium 136 L Potassium Chloride 97.2 L Carbon Dioxide BUN 32 H Creatinine 1.3 H Glucose 123 H POC Glucose 125 H 108 H Lactic Acid Calcium 7.8 L Phosphorus Magnesium Direct Bilirubin AST ALT Alkaline Phosphatase Lactate Dehydrogenase Troponin T C-Reactive Protein Total Protein Albumin Prealbumin Triglycerides Cholesterol LDL Cholesterol Direct HDL Cholesterol Urine pH Urine WBC (Auto) Urine Creatinine Urine Total Protein Fluid Total Protein Vancomycin Trough Rheumatoid Factor Complement C4 Miscellaneous Test Crossmatch 11/05/16 11/05/16 11/05/16 12:23 13:09 13:25 WBC RBC Hgb Hct MCV MCH MCHC RDW Plt Count Lymph % (Auto) [place] % (Auto) Lymph # [place] # Baso # Seg Neutrophils % Seg Neuts % (Manual) Lymphocytes % (Manual) Monocytes % (Manual) Eosinophils % (Manual) Basophils % (Manual) Nucleated RBC % Seg Neutrophils # Seg Neutrophils # Man Lymphocytes # (Manual) Monocytes # (Manual) Eosinophils # (Manual) PT INR Fibrinogen dRVVT Confirm Interp Factor V Activity POC ABG pH POC ABG pCO2 POC ABG pO2 ABG pO2 ABG HCO3 ABG Base Excess ABG Hemoglobin Oxyhemoglobin Sodium Potassium Chloride Carbon Dioxide BUN Creatinine Glucose POC Glucose 124 H Lactic Acid Calcium Phosphorus Magnesium Direct Bilirubin AST ALT Alkaline Phosphatase Lactate Dehydrogenase Troponin T C-Reactive Protein 11.40 H Total Protein Albumin Prealbumin Triglycerides Cholesterol LDL Cholesterol Direct HDL Cholesterol Urine pH 9.0 H Urine WBC (Auto) Urine Creatinine Urine Total Protein Fluid Total Protein Vancomycin Trough Rheumatoid Factor Complement C4 Miscellaneous Test Crossmatch 11/05/16 11/05/16 11/05/16 13:25 17:54 23:42 WBC RBC Hgb Hct MCV MCH MCHC RDW Plt Count Lymph % (Auto) [place] % (Auto) Lymph # [place] # Baso # Seg Neutrophils % Seg Neuts % (Manual) Lymphocytes % (Manual) Monocytes % (Manual) Eosinophils % (Manual) Basophils % (Manual) Nucleated RBC % Seg Neutrophils # Seg Neutrophils # Man Lymphocytes # (Manual) Monocytes # (Manual) Eosinophils # (Manual) PT INR Fibrinogen dRVVT Confirm Interp Factor V Activity POC ABG pH POC ABG pCO2 POC ABG pO2 ABG pO2 ABG HCO3 ABG Base Excess ABG Hemoglobin Oxyhemoglobin Sodium Potassium Chloride Carbon Dioxide BUN Creatinine Glucose POC Glucose 114 H 134 H Lactic Acid Calcium Phosphorus Magnesium Direct Bilirubin AST ALT Alkaline Phosphatase Lactate Dehydrogenase Troponin T C-Reactive Protein Total Protein Albumin Prealbumin Triglycerides Cholesterol LDL Cholesterol Direct HDL Cholesterol Urine pH Urine WBC (Auto) Urine Creatinine Urine Total Protein Fluid Total Protein Vancomycin Trough Rheumatoid Factor Complement C4 Miscellaneous Test Flexitest 1 H Crossmatch 11/06/16 11/06/16 11/06/16 04:56 06:25 06:25 WBC RBC 2.50 L Hgb 7.3 L Hct 22.5 L MCV MCH MCHC RDW 16.9 H Plt Count Lymph % (Auto) [place] % (Auto) 10.5 H Lymph # [place] # 1.1 H Baso # Seg Neutrophils % Seg Neuts % (Manual) Lymphocytes % (Manual) Monocytes % (Manual) Eosinophils % (Manual) Basophils % (Manual) Nucleated RBC % Seg Neutrophils # Seg Neutrophils # Man Lymphocytes # (Manual) Monocytes # (Manual) Eosinophils # (Manual) PT INR Fibrinogen dRVVT Confirm Interp Factor V Activity POC ABG pH POC ABG pCO2 POC ABG pO2 ABG pO2 ABG HCO3 ABG Base Excess ABG Hemoglobin Oxyhemoglobin Sodium Potassium 5.1 H Chloride 95.9 L Carbon Dioxide BUN 52 H Creatinine 1.8 H Glucose 117 H POC Glucose 120 H Lactic Acid Calcium Phosphorus Magnesium Direct Bilirubin AST 103 H ALT 77 H Alkaline Phosphatase 285 H Lactate Dehydrogenase Troponin T C-Reactive Protein Total Protein 6.2 L Albumin 1.8 L Prealbumin 0.180 L Triglycerides Cholesterol LDL Cholesterol Direct HDL Cholesterol Urine pH Urine WBC (Auto) Urine Creatinine Urine Total Protein Fluid Total Protein Vancomycin Trough Rheumatoid Factor Complement C4 Miscellaneous Test Crossmatch 11/06/16 11/06/16 11/06/16 11:56 17:14 23:52 WBC RBC Hgb Hct MCV MCH MCHC RDW Plt Count Lymph % (Auto) [place] % (Auto) Lymph # [place] # Baso # Seg Neutrophils % Seg Neuts % (Manual) Lymphocytes % (Manual) Monocytes % (Manual) Eosinophils % (Manual) Basophils % (Manual) Nucleated RBC % Seg Neutrophils # Seg Neutrophils # Man Lymphocytes # (Manual) Monocytes # (Manual) Eosinophils # (Manual) PT INR Fibrinogen dRVVT Confirm Interp Factor V Activity POC ABG pH POC ABG pCO2 POC ABG pO2 ABG pO2 ABG HCO3 ABG Base Excess ABG Hemoglobin Oxyhemoglobin Sodium Potassium Chloride Carbon Dioxide BUN Creatinine Glucose POC Glucose 141 H 125 H 130 H Lactic Acid Calcium Phosphorus Magnesium Direct Bilirubin AST ALT Alkaline Phosphatase Lactate Dehydrogenase Troponin T C-Reactive Protein Total Protein Albumin Prealbumin Triglycerides Cholesterol LDL Cholesterol Direct HDL Cholesterol Urine pH Urine WBC (Auto) Urine Creatinine Urine Total Protein Fluid Total Protein Vancomycin Trough Rheumatoid Factor Complement C4 Miscellaneous Test Crossmatch 11/07/16 11/07/16 11/07/16 06:30 06:30 09:37 WBC RBC 2.18 L Hgb 6.3 L Hct 19.7 L* MCV MCH MCHC RDW 16.8 H Plt Count Lymph % (Auto) [place] % (Auto) 10.0 H Lymph # [place] # 1.0 H Baso # Seg Neutrophils % Seg Neuts % (Manual) Lymphocytes % (Manual) Monocytes % (Manual) Eosinophils % (Manual) Basophils % (Manual) Nucleated RBC % Seg Neutrophils # Seg Neutrophils # Man Lymphocytes # (Manual) Monocytes # (Manual) Eosinophils # (Manual) PT INR Fibrinogen dRVVT Confirm Interp Factor V Activity POC ABG pH POC ABG pCO2 POC ABG pO2 ABG pO2 ABG HCO3 ABG Base Excess ABG Hemoglobin Oxyhemoglobin Sodium 135 L Potassium Chloride 95.6 L Carbon Dioxide BUN 70 H Creatinine 2.0 H Glucose 126 H POC Glucose Lactic Acid Calcium Phosphorus Magnesium Direct Bilirubin AST ALT Alkaline Phosphatase Lactate Dehydrogenase Troponin T C-Reactive Protein Total Protein Albumin Prealbumin Triglycerides Cholesterol LDL Cholesterol Direct HDL Cholesterol Urine pH Urine WBC (Auto) Urine Creatinine Urine Total Protein Fluid Total Protein Vancomycin Trough Rheumatoid Factor Complement C4 Miscellaneous Test Crossmatch See Detail 11/07/16 11/07/16 11/07/16 12:52 18:51 21:26 WBC RBC Hgb Hct MCV MCH MCHC RDW Plt Count Lymph % (Auto) [place] % (Auto) Lymph # [place] # Baso # Seg Neutrophils % Seg Neuts % (Manual) Lymphocytes % (Manual) Monocytes % (Manual) Eosinophils % (Manual) Basophils % (Manual) Nucleated RBC % Seg Neutrophils # Seg Neutrophils # Man Lymphocytes # (Manual) Monocytes # (Manual) Eosinophils # (Manual) PT INR Fibrinogen dRVVT Confirm Interp Factor V Activity POC ABG pH 7.523 H POC ABG pCO2 34.6 L POC ABG pO2 53 L ABG pO2 ABG HCO3 ABG Base Excess ABG Hemoglobin Oxyhemoglobin Sodium Potassium Chloride Carbon Dioxide BUN Creatinine Glucose POC Glucose 142 H 155 H Lactic Acid Calcium Phosphorus Magnesium Direct Bilirubin AST ALT Alkaline Phosphatase Lactate Dehydrogenase Troponin T C-Reactive Protein Total Protein Albumin Prealbumin Triglycerides Cholesterol LDL Cholesterol Direct HDL Cholesterol Urine pH Urine WBC (Auto) Urine Creatinine Urine Total Protein Fluid Total Protein Vancomycin Trough Rheumatoid Factor Complement C4 Miscellaneous Test Crossmatch 11/07/16 11/08/16 11/08/16 21:34 13:03 23:37 WBC RBC 2.63 L Hgb 7.7 L Hct 22.7 L MCV MCH MCHC RDW 17.0 H Plt Count Lymph % (Auto) [place] % (Auto) Lymph # [place] # Baso # Seg Neutrophils % Seg Neuts % (Manual) Lymphocytes % (Manual) Monocytes % (Manual) Eosinophils % (Manual) Basophils % (Manual) Nucleated RBC % Seg Neutrophils # Seg Neutrophils # Man Lymphocytes # (Manual) Monocytes # (Manual) Eosinophils # (Manual) PT INR Fibrinogen dRVVT Confirm Interp Factor V Activity POC ABG pH 7.478 H POC ABG pCO2 34.0 L POC ABG pO2 50 L ABG pO2 ABG HCO3 ABG Base Excess ABG Hemoglobin Oxyhemoglobin Sodium Potassium Chloride Carbon Dioxide BUN Creatinine Glucose POC Glucose 113 H Lactic Acid Calcium Phosphorus Magnesium Direct Bilirubin AST ALT Alkaline Phosphatase Lactate Dehydrogenase Troponin T C-Reactive Protein Total Protein Albumin Prealbumin Triglycerides Cholesterol LDL Cholesterol Direct HDL Cholesterol Urine pH Urine WBC (Auto) Urine Creatinine Urine Total Protein Fluid Total Protein Vancomycin Trough Rheumatoid Factor Complement C4 Miscellaneous Test Crossmatch 11/09/16 11/09/16 11/09/16 04:35 10:15 18:21 WBC RBC 2.68 L Hgb 7.8 L Hct 23.3 L MCV MCH MCHC RDW 17.0 H Plt Count Lymph % (Auto) [place] % (Auto) 12.1 H Lymph # [place] # 1.1 H Baso # Seg Neutrophils % Seg Neuts % (Manual) Lymphocytes % (Manual) Monocytes % (Manual) Eosinophils % (Manual) Basophils % (Manual) Nucleated RBC % Seg Neutrophils # Seg Neutrophils # Man Lymphocytes # (Manual) Monocytes # (Manual) Eosinophils # (Manual) PT INR Fibrinogen dRVVT Confirm Interp Factor V Activity POC ABG pH POC ABG pCO2 POC ABG pO2 ABG pO2 ABG HCO3 ABG Base Excess ABG Hemoglobin Oxyhemoglobin Sodium Potassium Chloride Carbon Dioxide BUN 51 H Creatinine 1.8 H Glucose POC Glucose 60 L Lactic Acid Calcium 8.3 L Phosphorus Magnesium Direct Bilirubin AST ALT Alkaline Phosphatase Lactate Dehydrogenase Troponin T C-Reactive Protein Total Protein Albumin Prealbumin Triglycerides Cholesterol LDL Cholesterol Direct HDL Cholesterol Urine pH Urine WBC (Auto) Urine Creatinine Urine Total Protein Fluid Total Protein Vancomycin Trough Rheumatoid Factor Complement C4 Miscellaneous Test Crossmatch 11/09/16 11/10/16 11/10/16 18:55 07:00 11:51 WBC RBC Hgb Hct MCV MCH MCHC RDW Plt Count Lymph % (Auto) [place] % (Auto) Lymph # [place] # Baso # Seg Neutrophils % Seg Neuts % (Manual) Lymphocytes % (Manual) Monocytes % (Manual) Eosinophils % (Manual) Basophils % (Manual) Nucleated RBC % Seg Neutrophils # Seg Neutrophils # Man Lymphocytes # (Manual) Monocytes # (Manual) Eosinophils # (Manual) PT INR Fibrinogen dRVVT Confirm Interp Factor V Activity POC ABG pH POC ABG pCO2 POC ABG pO2 ABG pO2 ABG HCO3 ABG Base Excess ABG Hemoglobin Oxyhemoglobin Sodium Potassium 3.0 L D Chloride 97.4 L Carbon Dioxide BUN 28 H Creatinine 1.3 H Glucose POC Glucose 68 L 120 H Lactic Acid Calcium 7.8 L Phosphorus Magnesium Direct Bilirubin AST ALT Alkaline Phosphatase Lactate Dehydrogenase Troponin T C-Reactive Protein Total Protein Albumin Prealbumin Triglycerides Cholesterol LDL Cholesterol Direct HDL Cholesterol Urine pH Urine WBC (Auto) Urine Creatinine Urine Total Protein Fluid Total Protein Vancomycin Trough Rheumatoid Factor Complement C4 Miscellaneous Test Crossmatch 11/10/16 11/11/16 11/11/16 14:20 06:59 06:59 WBC RBC 2.81 L Hgb 8.1 L Hct 24.4 L MCV MCH MCHC RDW 16.4 H Plt Count Lymph % (Auto) [place] % (Auto) 10.8 H Lymph # [place] # 1.0 H Baso # Seg Neutrophils % Seg Neuts % (Manual) Lymphocytes % (Manual) Monocytes % (Manual) Eosinophils % (Manual) Basophils % (Manual) Nucleated RBC % Seg Neutrophils # Seg Neutrophils # Man Lymphocytes # (Manual) Monocytes # (Manual) Eosinophils # (Manual) PT INR Fibrinogen dRVVT Confirm Interp Factor V Activity POC ABG pH POC ABG pCO2 POC ABG pO2 ABG pO2 ABG HCO3 ABG Base Excess ABG Hemoglobin Oxyhemoglobin Sodium Potassium Chloride Carbon Dioxide BUN Creatinine Glucose POC Glucose Lactic Acid Calcium Phosphorus Magnesium Direct Bilirubin AST ALT Alkaline Phosphatase Lactate Dehydrogenase 196 H Troponin T C-Reactive Protein Total Protein 6.1 L Albumin Prealbumin Triglycerides Cholesterol LDL Cholesterol Direct HDL Cholesterol Urine pH Urine WBC (Auto) Urine Creatinine Urine Total Protein Fluid Total Protein < 3.0 L Vancomycin Trough Rheumatoid Factor Complement C4 Miscellaneous Test Crossmatch 11/11/16 11/11/16 11/12/16 06:59 09:50 04:00 WBC RBC Hgb Hct MCV MCH MCHC RDW Plt Count Lymph % (Auto) [place] % (Auto) Lymph # [place] # Baso # Seg Neutrophils % Seg Neuts % (Manual) Lymphocytes % (Manual) Monocytes % (Manual) Eosinophils % (Manual) Basophils % (Manual) Nucleated RBC % Seg Neutrophils # Seg Neutrophils # Man Lymphocytes # (Manual) Monocytes # (Manual) Eosinophils # (Manual) PT INR 1.18 H Fibrinogen dRVVT Confirm Interp Factor V Activity POC ABG pH POC ABG pCO2 POC ABG pO2 ABG pO2 ABG HCO3 ABG Base Excess ABG Hemoglobin Oxyhemoglobin Sodium 136 L 133 L Potassium Chloride 96.1 L 94.8 L Carbon Dioxide 21 L BUN 37 H 42 H Creatinine 1.8 H 2.0 H Glucose POC Glucose Lactic Acid Calcium Phosphorus Magnesium Direct Bilirubin AST ALT Alkaline Phosphatase Lactate Dehydrogenase Troponin T C-Reactive Protein Total Protein Albumin Prealbumin Triglycerides Cholesterol LDL Cholesterol Direct HDL Cholesterol Urine pH Urine WBC (Auto) Urine Creatinine Urine Total Protein Fluid Total Protein Vancomycin Trough Rheumatoid Factor Complement C4 Miscellaneous Test Crossmatch 11/12/16 11/12/16 11/13/16 04:00 23:55 05:53 WBC RBC Hgb 8.9 L Hct 27.2 L MCV MCH MCHC RDW Plt Count Lymph % (Auto) [place] % (Auto) Lymph # [place] # Baso # Seg Neutrophils % Seg Neuts % (Manual) Lymphocytes % (Manual) Monocytes % (Manual) Eosinophils % (Manual) Basophils % (Manual) Nucleated RBC % Seg Neutrophils # Seg Neutrophils # Man Lymphocytes # (Manual) Monocytes # (Manual) Eosinophils # (Manual) PT INR Fibrinogen dRVVT Confirm Interp Factor V Activity POC ABG pH POC ABG pCO2 POC ABG pO2 ABG pO2 ABG HCO3 ABG Base Excess ABG Hemoglobin Oxyhemoglobin Sodium Potassium Chloride Carbon Dioxide BUN Creatinine Glucose POC Glucose 132 H 120 H Lactic Acid Calcium Phosphorus Magnesium Direct Bilirubin AST ALT Alkaline Phosphatase Lactate Dehydrogenase Troponin T C-Reactive Protein Total Protein Albumin Prealbumin Triglycerides Cholesterol LDL Cholesterol Direct HDL Cholesterol Urine pH Urine WBC (Auto) Urine Creatinine Urine Total Protein Fluid Total Protein Vancomycin Trough Rheumatoid Factor Complement C4 Miscellaneous Test Crossmatch 11/13/16 11/13/16 11/13/16 11:43 17:09 23:41 WBC RBC Hgb Hct MCV MCH MCHC RDW Plt Count Lymph % (Auto) [place] % (Auto) Lymph # [place] # Baso # Seg Neutrophils % Seg Neuts % (Manual) Lymphocytes % (Manual) Monocytes % (Manual) Eosinophils % (Manual) Basophils % (Manual) Nucleated RBC % Seg Neutrophils # Seg Neutrophils # Man Lymphocytes # (Manual) Monocytes # (Manual) Eosinophils # (Manual) PT INR Fibrinogen dRVVT Confirm Interp Factor V Activity POC ABG pH POC ABG pCO2 POC ABG pO2 ABG pO2 ABG HCO3 ABG Base Excess ABG Hemoglobin Oxyhemoglobin Sodium Potassium Chloride Carbon Dioxide BUN Creatinine Glucose POC Glucose 114 H 113 H 108 H Lactic Acid Calcium Phosphorus Magnesium Direct Bilirubin AST ALT Alkaline Phosphatase Lactate Dehydrogenase Troponin T C-Reactive Protein Total Protein Albumin Prealbumin Triglycerides Cholesterol LDL Cholesterol Direct HDL Cholesterol Urine pH Urine WBC (Auto) Urine Creatinine Urine Total Protein Fluid Total Protein Vancomycin Trough Rheumatoid Factor Complement C4 Miscellaneous Test Crossmatch 11/13/16 11/15/16 11/15/16 Unknown 00:37 03:30 WBC 11.2 H RBC 2.72 L Hgb 7.6 L Hct 23.4 L MCV MCH MCHC RDW 16.5 H Plt Count Lymph % (Auto) [place] % (Auto) Lymph # [place] # Baso # Seg Neutrophils % Seg Neuts % (Manual) Lymphocytes % (Manual) Monocytes % (Manual) Eosinophils % (Manual) Basophils % (Manual) Nucleated RBC % Seg Neutrophils # Seg Neutrophils # Man Lymphocytes # (Manual) Monocytes # (Manual) Eosinophils # (Manual) PT INR Fibrinogen dRVVT Confirm Interp Factor V Activity POC ABG pH POC ABG pCO2 POC ABG pO2 ABG pO2 ABG HCO3 ABG Base Excess ABG Hemoglobin Oxyhemoglobin Sodium 135 L Potassium Chloride 95.2 L Carbon Dioxide BUN 52 H Creatinine 2.2 H Glucose POC Glucose 108 H Lactic Acid Calcium Phosphorus Magnesium Direct Bilirubin AST ALT Alkaline Phosphatase Lactate Dehydrogenase Troponin T C-Reactive Protein Total Protein Albumin Prealbumin Triglycerides Cholesterol LDL Cholesterol Direct HDL Cholesterol Urine pH Urine WBC (Auto) Urine Creatinine Urine Total Protein Fluid Total Protein Vancomycin Trough Rheumatoid Factor Complement C4 Miscellaneous Test Crossmatch 11/15/16 11/15/16 11/15/16 03:30 05:04 11:50 WBC RBC Hgb Hct MCV MCH MCHC RDW Plt Count Lymph % (Auto) [place] % (Auto) Lymph # [place] # Baso # Seg Neutrophils % Seg Neuts % (Manual) Lymphocytes % (Manual) Monocytes % (Manual) Eosinophils % (Manual) Basophils % (Manual) Nucleated RBC % Seg Neutrophils # Seg Neutrophils # Man Lymphocytes # (Manual) Monocytes # (Manual) Eosinophils # (Manual) PT INR Fibrinogen dRVVT Confirm Interp Factor V Activity POC ABG pH POC ABG pCO2 POC ABG pO2 ABG pO2 ABG HCO3 ABG Base Excess ABG Hemoglobin Oxyhemoglobin Sodium Potassium 3.4 L Chloride Carbon Dioxide BUN 25 H Creatinine 1.5 H Glucose 103 H POC Glucose 121 H 144 H Lactic Acid Calcium Phosphorus Magnesium Direct Bilirubin AST ALT Alkaline Phosphatase Lactate Dehydrogenase Troponin T C-Reactive Protein Total Protein Albumin Prealbumin Triglycerides Cholesterol LDL Cholesterol Direct HDL Cholesterol Urine pH Urine WBC (Auto) Urine Creatinine Urine Total Protein Fluid Total Protein Vancomycin Trough Rheumatoid Factor Complement C4 Miscellaneous Test Crossmatch 11/15/16 11/15/16 11/16/16 21:28 23:20 11:44 WBC RBC Hgb Hct MCV MCH MCHC RDW Plt Count Lymph % (Auto) [place] % (Auto) Lymph # [place] # Baso # Seg Neutrophils % Seg Neuts % (Manual) Lymphocytes % (Manual) Monocytes % (Manual) Eosinophils % (Manual) Basophils % (Manual) Nucleated RBC % Seg Neutrophils # Seg Neutrophils # Man Lymphocytes # (Manual) Monocytes # (Manual) Eosinophils # (Manual) PT INR Fibrinogen dRVVT Confirm Interp Factor V Activity POC ABG pH 7.462 H POC ABG pCO2 POC ABG pO2 71 L ABG pO2 ABG HCO3 ABG Base Excess ABG Hemoglobin Oxyhemoglobin Sodium Potassium Chloride Carbon Dioxide BUN Creatinine Glucose POC Glucose 116 H 133 H Lactic Acid Calcium Phosphorus Magnesium Direct Bilirubin AST ALT Alkaline Phosphatase Lactate Dehydrogenase Troponin T C-Reactive Protein Total Protein Albumin Prealbumin Triglycerides Cholesterol LDL Cholesterol Direct HDL Cholesterol Urine pH Urine WBC (Auto) Urine Creatinine Urine Total Protein Fluid Total Protein Vancomycin Trough Rheumatoid Factor Complement C4 Miscellaneous Test Crossmatch 11/16/16 11/16/16 11/16/16 12:20 17:05 23:35 WBC 11.7 H RBC 2.73 L Hgb 7.6 L Hct 23.7 L MCV MCH MCHC RDW 16.6 H Plt Count Lymph % (Auto) [place] % (Auto) Lymph # [place] # Baso # Seg Neutrophils % Seg Neuts % (Manual) Lymphocytes % (Manual) Monocytes % (Manual) Eosinophils % (Manual) Basophils % (Manual) Nucleated RBC % Seg Neutrophils # Seg Neutrophils # Man Lymphocytes # (Manual) Monocytes # (Manual) Eosinophils # (Manual) PT INR Fibrinogen dRVVT Confirm Interp Factor V Activity POC ABG pH POC ABG pCO2 POC ABG pO2 ABG pO2 ABG HCO3 ABG Base Excess ABG Hemoglobin Oxyhemoglobin Sodium Potassium Chloride Carbon Dioxide BUN Creatinine Glucose POC Glucose 154 H 125 H Lactic Acid Calcium Phosphorus Magnesium Direct Bilirubin AST ALT Alkaline Phosphatase Lactate Dehydrogenase Troponin T C-Reactive Protein Total Protein Albumin Prealbumin Triglycerides Cholesterol LDL Cholesterol Direct HDL Cholesterol Urine pH Urine WBC (Auto) Urine Creatinine Urine Total Protein Fluid Total Protein Vancomycin Trough Rheumatoid Factor Complement C4 Miscellaneous Test Crossmatch 11/17/16 11/17/16 11/17/16 03:20 03:20 03:20 WBC RBC 2.55 L Hgb 7.3 L Hct 21.9 L MCV MCH MCHC RDW 16.6 H Plt Count Lymph % (Auto) [place] % (Auto) 11.5 H Lymph # [place] # 1.1 H Baso # Seg Neutrophils % Seg Neuts % (Manual) Lymphocytes % (Manual) Monocytes % (Manual) Eosinophils % (Manual) Basophils % (Manual) Nucleated RBC % Seg Neutrophils # Seg Neutrophils # Man Lymphocytes # (Manual) Monocytes # (Manual) Eosinophils # (Manual) PT 16.8 H INR 1.37 H Fibrinogen dRVVT Confirm Interp Factor V Activity POC ABG pH POC ABG pCO2 POC ABG pO2 ABG pO2 ABG HCO3 ABG Base Excess ABG Hemoglobin Oxyhemoglobin Sodium Potassium 3.5 L Chloride Carbon Dioxide BUN 21 H Creatinine Glucose POC Glucose Lactic Acid Calcium 7.9 L Phosphorus Magnesium Direct Bilirubin AST ALT Alkaline Phosphatase Lactate Dehydrogenase Troponin T C-Reactive Protein Total Protein Albumin Prealbumin Triglycerides Cholesterol LDL Cholesterol Direct HDL Cholesterol Urine pH Urine WBC (Auto) Urine Creatinine Urine Total Protein Fluid Total Protein Vancomycin Trough Rheumatoid Factor Complement C4 Miscellaneous Test Crossmatch 11/17/16 11/17/16 11/17/16 06:34 11:21 21:22 WBC RBC Hgb Hct MCV MCH MCHC RDW Plt Count Lymph % (Auto) [place] % (Auto) Lymph # [place] # Baso # Seg Neutrophils % Seg Neuts % (Manual) Lymphocytes % (Manual) Monocytes % (Manual) Eosinophils % (Manual) Basophils % (Manual) Nucleated RBC % Seg Neutrophils # Seg Neutrophils # Man Lymphocytes # (Manual) Monocytes # (Manual) Eosinophils # (Manual) PT INR Fibrinogen dRVVT Confirm Interp Factor V Activity POC ABG pH 7.467 H POC ABG pCO2 POC ABG pO2 73 L ABG pO2 ABG HCO3 ABG Base Excess ABG Hemoglobin Oxyhemoglobin Sodium Potassium Chloride Carbon Dioxide BUN Creatinine Glucose POC Glucose 121 H 119 H Lactic Acid Calcium Phosphorus Magnesium Direct Bilirubin AST ALT Alkaline Phosphatase Lactate Dehydrogenase Troponin T C-Reactive Protein Total Protein Albumin Prealbumin Triglycerides Cholesterol LDL Cholesterol Direct HDL Cholesterol Urine pH Urine WBC (Auto) Urine Creatinine Urine Total Protein Fluid Total Protein Vancomycin Trough Rheumatoid Factor Complement C4 Miscellaneous Test Crossmatch 11/18/16 11/18/16 11/19/16 12:16 17:19 00:00 WBC RBC Hgb Hct MCV MCH MCHC RDW Plt Count Lymph % (Auto) [place] % (Auto) Lymph # [place] # Baso # Seg Neutrophils % Seg Neuts % (Manual) Lymphocytes % (Manual) Monocytes % (Manual) Eosinophils % (Manual) Basophils % (Manual) Nucleated RBC % Seg Neutrophils # Seg Neutrophils # Man Lymphocytes # (Manual) Monocytes # (Manual) Eosinophils # (Manual) PT INR Fibrinogen dRVVT Confirm Interp Factor V Activity POC ABG pH POC ABG pCO2 POC ABG pO2 ABG pO2 ABG HCO3 ABG Base Excess ABG Hemoglobin Oxyhemoglobin Sodium Potassium Chloride Carbon Dioxide BUN Creatinine Glucose POC Glucose 124 H 162 H 139 H Lactic Acid Calcium Phosphorus Magnesium Direct Bilirubin AST ALT Alkaline Phosphatase Lactate Dehydrogenase Troponin T C-Reactive Protein Total Protein Albumin Prealbumin Triglycerides Cholesterol LDL Cholesterol Direct HDL Cholesterol Urine pH Urine WBC (Auto) Urine Creatinine Urine Total Protein Fluid Total Protein Vancomycin Trough Rheumatoid Factor Complement C4 Miscellaneous Test Crossmatch 11/19/16 11/19/16 11/20/16 05:00 12:43 00:40 WBC RBC Hgb Hct MCV MCH MCHC RDW Plt Count Lymph % (Auto) [place] % (Auto) Lymph # [place] # Baso # Seg Neutrophils % Seg Neuts % (Manual) Lymphocytes % (Manual) Monocytes % (Manual) Eosinophils % (Manual) Basophils % (Manual) Nucleated RBC % Seg Neutrophils # Seg Neutrophils # Man Lymphocytes # (Manual) Monocytes # (Manual) Eosinophils # (Manual) PT INR Fibrinogen dRVVT Confirm Interp Factor V Activity POC ABG pH POC ABG pCO2 POC ABG pO2 ABG pO2 ABG HCO3 ABG Base Excess ABG Hemoglobin Oxyhemoglobin Sodium Potassium Chloride Carbon Dioxide BUN Creatinine Glucose POC Glucose 110 H 125 H 136 H Lactic Acid Calcium Phosphorus Magnesium Direct Bilirubin AST ALT Alkaline Phosphatase Lactate Dehydrogenase Troponin T C-Reactive Protein Total Protein Albumin Prealbumin Triglycerides Cholesterol LDL Cholesterol Direct HDL Cholesterol Urine pH Urine WBC (Auto) Urine Creatinine Urine Total Protein Fluid Total Protein Vancomycin Trough Rheumatoid Factor Complement C4 Miscellaneous Test Crossmatch 11/20/16 11/20/16 11/20/16 05:00 05:00 05:51 WBC 13.1 H RBC 2.74 L Hgb 7.7 L Hct 23.6 L MCV MCH MCHC RDW 16.9 H Plt Count Lymph % (Auto) [place] % (Auto) 10.8 H Lymph # [place] # 1.4 H Baso # Seg Neutrophils % Seg Neuts % (Manual) Lymphocytes % (Manual) Monocytes % (Manual) Eosinophils % (Manual) Basophils % (Manual) Nucleated RBC % Seg Neutrophils # 7.9 H Seg Neutrophils # Man Lymphocytes # (Manual) Monocytes # (Manual) Eosinophils # (Manual) PT INR Fibrinogen dRVVT Confirm Interp Factor V Activity POC ABG pH POC ABG pCO2 POC ABG pO2 ABG pO2 ABG HCO3 ABG Base Excess ABG Hemoglobin Oxyhemoglobin Sodium Potassium Chloride Carbon Dioxide BUN 31 H Creatinine 1.8 H Glucose 129 H POC Glucose 133 H Lactic Acid Calcium Phosphorus Magnesium Direct Bilirubin AST ALT Alkaline Phosphatase Lactate Dehydrogenase Troponin T C-Reactive Protein Total Protein Albumin Prealbumin Triglycerides Cholesterol LDL Cholesterol Direct HDL Cholesterol Urine pH Urine WBC (Auto) Urine Creatinine Urine Total Protein Fluid Total Protein Vancomycin Trough Rheumatoid Factor Complement C4 Miscellaneous Test Crossmatch 11/20/16 11/20/16 11/21/16 12:40 18:10 01:20 WBC RBC Hgb Hct MCV MCH MCHC RDW Plt Count Lymph % (Auto) [place] % (Auto) Lymph # [place] # Baso # Seg Neutrophils % Seg Neuts % (Manual) Lymphocytes % (Manual) Monocytes % (Manual) Eosinophils % (Manual) Basophils % (Manual) Nucleated RBC % Seg Neutrophils # Seg Neutrophils # Man Lymphocytes # (Manual) Monocytes # (Manual) Eosinophils # (Manual) PT INR Fibrinogen dRVVT Confirm Interp Factor V Activity POC ABG pH POC ABG pCO2 POC ABG pO2 ABG pO2 ABG HCO3 ABG Base Excess ABG Hemoglobin Oxyhemoglobin Sodium Potassium Chloride Carbon Dioxide BUN Creatinine Glucose POC Glucose 134 H 138 H 136 H Lactic Acid Calcium Phosphorus Magnesium Direct Bilirubin AST ALT Alkaline Phosphatase Lactate Dehydrogenase Troponin T C-Reactive Protein Total Protein Albumin Prealbumin Triglycerides Cholesterol LDL Cholesterol Direct HDL Cholesterol Urine pH Urine WBC (Auto) Urine Creatinine Urine Total Protein Fluid Total Protein Vancomycin Trough Rheumatoid Factor Complement C4 Miscellaneous Test Crossmatch 11/21/16 11/21/16 11/21/16 07:04 07:45 07:45 WBC 22.0 H RBC 2.91 L Hgb 8.2 L Hct 25.4 L MCV MCH MCHC RDW 17.1 H Plt Count Lymph % (Auto) [place] % (Auto) Lymph # [place] # Baso # Seg Neutrophils % Seg Neuts % (Manual) Lymphocytes % (Manual) 8.0 L Monocytes % (Manual) Eosinophils % (Manual) Basophils % (Manual) Nucleated RBC % Seg Neutrophils # Seg Neutrophils # Man 14.7 H Lymphocytes # (Manual) Monocytes # (Manual) 1.1 H Eosinophils # (Manual) PT INR Fibrinogen dRVVT Confirm Interp Factor V Activity POC ABG pH POC ABG pCO2 POC ABG pO2 ABG pO2 ABG HCO3 ABG Base Excess ABG Hemoglobin Oxyhemoglobin Sodium Potassium Chloride Carbon Dioxide BUN 42 H Creatinine 2.0 H Glucose POC Glucose 108 H Lactic Acid Calcium Phosphorus Magnesium Direct Bilirubin AST ALT Alkaline Phosphatase Lactate Dehydrogenase Troponin T C-Reactive Protein Total Protein Albumin Prealbumin Triglycerides Cholesterol LDL Cholesterol Direct HDL Cholesterol Urine pH Urine WBC (Auto) Urine Creatinine Urine Total Protein Fluid Total Protein Vancomycin Trough Rheumatoid Factor Complement C4 Miscellaneous Test Crossmatch 11/21/16 11/21/16 11/21/16 08:38 10:09 11:20 WBC RBC Hgb Hct MCV MCH MCHC RDW Plt Count Lymph % (Auto) [place] % (Auto) Lymph # [place] # Baso # Seg Neutrophils % Seg Neuts % (Manual) Lymphocytes % (Manual) Monocytes % (Manual) Eosinophils % (Manual) Basophils % (Manual) Nucleated RBC % Seg Neutrophils # Seg Neutrophils # Man Lymphocytes # (Manual) Monocytes # (Manual) Eosinophils # (Manual) PT INR Fibrinogen dRVVT Confirm Interp Factor V Activity POC ABG pH 7.346 L POC ABG pCO2 34.4 L POC ABG pO2 314 H ABG pO2 ABG HCO3 ABG Base Excess ABG Hemoglobin Oxyhemoglobin Sodium Potassium Chloride Carbon Dioxide BUN Creatinine Glucose POC Glucose 195 H 153 H Lactic Acid Calcium Phosphorus Magnesium Direct Bilirubin AST ALT Alkaline Phosphatase Lactate Dehydrogenase Troponin T C-Reactive Protein Total Protein Albumin Prealbumin Triglycerides Cholesterol LDL Cholesterol Direct HDL Cholesterol Urine pH Urine WBC (Auto) Urine Creatinine Urine Total Protein Fluid Total Protein Vancomycin Trough Rheumatoid Factor Complement C4 Miscellaneous Test Crossmatch 11/21/16 11/22/16 11/22/16 23:37 04:48 05:00 WBC 29.7 H RBC 2.73 L Hgb 7.5 L Hct 24.2 L MCV MCH 27 L MCHC RDW 17.4 H Plt Count Lymph % (Auto) [place] % (Auto) Lymph # [place] # Baso # Seg Neutrophils % Seg Neuts % (Manual) Lymphocytes % (Manual) 7.0 L Monocytes % (Manual) Eosinophils % (Manual) Basophils % (Manual) Nucleated RBC % Seg Neutrophils # Seg Neutrophils # Man 15.4 H Lymphocytes # (Manual) Monocytes # (Manual) Eosinophils # (Manual) PT INR Fibrinogen dRVVT Confirm Interp Factor V Activity POC ABG pH POC ABG pCO2 24.6 L POC ABG pO2 189 H ABG pO2 ABG HCO3 ABG Base Excess ABG Hemoglobin Oxyhemoglobin Sodium Potassium Chloride Carbon Dioxide BUN Creatinine Glucose POC Glucose 65 L Lactic Acid Calcium Phosphorus Magnesium Direct Bilirubin AST ALT Alkaline Phosphatase Lactate Dehydrogenase Troponin T C-Reactive Protein Total Protein Albumin Prealbumin Triglycerides Cholesterol LDL Cholesterol Direct HDL Cholesterol Urine pH Urine WBC (Auto) Urine Creatinine Urine Total Protein Fluid Total Protein Vancomycin Trough Rheumatoid Factor Complement C4 Miscellaneous Test Crossmatch 11/22/16 11/23/16 11/23/16 05:00 03:44 04:06 WBC RBC 2.52 L Hgb 7.2 L Hct 21.5 L MCV MCH MCHC RDW 17.1 H Plt Count Lymph % (Auto) [place] % (Auto) 12.4 H Lymph # [place] # 1.4 H Baso # Seg Neutrophils % Seg Neuts % (Manual) Lymphocytes % (Manual) Monocytes % (Manual) Eosinophils % (Manual) Basophils % (Manual) Nucleated RBC % Seg Neutrophils # Seg Neutrophils # Man Lymphocytes # (Manual) Monocytes # (Manual) Eosinophils # (Manual) PT INR Fibrinogen dRVVT Confirm Interp Factor V Activity POC ABG pH 7.493 H POC ABG pCO2 29.5 L POC ABG pO2 49 L ABG pO2 ABG HCO3 ABG Base Excess ABG Hemoglobin Oxyhemoglobin Sodium 134 L Potassium Chloride 95.9 L Carbon Dioxide 14 L D BUN 51 H Creatinine 2.6 H Glucose POC Glucose Lactic Acid Calcium Phosphorus Magnesium Direct Bilirubin AST ALT Alkaline Phosphatase Lactate Dehydrogenase Troponin T C-Reactive Protein Total Protein Albumin Prealbumin Triglycerides Cholesterol LDL Cholesterol Direct HDL Cholesterol Urine pH Urine WBC (Auto) Urine Creatinine Urine Total Protein Fluid Total Protein Vancomycin Trough Rheumatoid Factor Complement C4 Miscellaneous Test Crossmatch 11/23/16 11/23/16 11/24/16 04:06 11:29 06:39 WBC RBC Hgb Hct MCV MCH MCHC RDW Plt Count Lymph % (Auto) [place] % (Auto) Lymph # [place] # Baso # Seg Neutrophils % Seg Neuts % (Manual) Lymphocytes % (Manual) Monocytes % (Manual) Eosinophils % (Manual) Basophils % (Manual) Nucleated RBC % Seg Neutrophils # Seg Neutrophils # Man Lymphocytes # (Manual) Monocytes # (Manual) Eosinophils # (Manual) PT INR Fibrinogen dRVVT Confirm Interp Factor V Activity POC ABG pH POC ABG pCO2 POC ABG pO2 ABG pO2 ABG HCO3 ABG Base Excess ABG Hemoglobin Oxyhemoglobin Sodium 136 L Potassium Chloride 95.2 L Carbon Dioxide BUN 60 H Creatinine 2.9 H Glucose POC Glucose 69 L 305 H Lactic Acid Calcium Phosphorus Magnesium 1.60 L Direct Bilirubin AST ALT Alkaline Phosphatase Lactate Dehydrogenase Troponin T C-Reactive Protein Total Protein Albumin Prealbumin Triglycerides Cholesterol LDL Cholesterol Direct HDL Cholesterol Urine pH Urine WBC (Auto) Urine Creatinine Urine Total Protein Fluid Total Protein Vancomycin Trough Rheumatoid Factor Complement C4 Miscellaneous Test Crossmatch 11/24/16 11/24/16 11/24/16 06:43 08:08 08:08 WBC 11.2 H RBC 2.47 L Hgb 6.8 L Hct 20.6 L MCV MCH MCHC RDW 17.0 H Plt Count Lymph % (Auto) [place] % (Auto) 10.3 H Lymph # [place] # 1.2 H Baso # Seg Neutrophils % Seg Neuts % (Manual) Lymphocytes % (Manual) Monocytes % (Manual) Eosinophils % (Manual) Basophils % (Manual) Nucleated RBC % Seg Neutrophils # Seg Neutrophils # Man Lymphocytes # (Manual) Monocytes # (Manual) Eosinophils # (Manual) PT INR Fibrinogen dRVVT Confirm Interp Factor V Activity POC ABG pH POC ABG pCO2 POC ABG pO2 ABG pO2 ABG HCO3 ABG Base Excess ABG Hemoglobin Oxyhemoglobin Sodium 135 L Potassium Chloride 96.3 L Carbon Dioxide BUN 61 H Creatinine 3.1 H Glucose POC Glucose 62 L Lactic Acid Calcium 8.2 L Phosphorus Magnesium Direct Bilirubin AST ALT Alkaline Phosphatase Lactate Dehydrogenase Troponin T C-Reactive Protein Total Protein Albumin Prealbumin Triglycerides Cholesterol LDL Cholesterol Direct HDL Cholesterol Urine pH Urine WBC (Auto) Urine Creatinine Urine Total Protein Fluid Total Protein Vancomycin Trough Rheumatoid Factor Complement C4 Miscellaneous Test Crossmatch 11/24/16 11/24/16 11/24/16 08:34 11:20 12:41 WBC RBC Hgb Hct MCV MCH MCHC RDW Plt Count Lymph % (Auto) [place] % (Auto) Lymph # [place] # Baso # Seg Neutrophils % Seg Neuts % (Manual) Lymphocytes % (Manual) Monocytes % (Manual) Eosinophils % (Manual) Basophils % (Manual) Nucleated RBC % Seg Neutrophils # Seg Neutrophils # Man Lymphocytes # (Manual) Monocytes # (Manual) Eosinophils # (Manual) PT INR Fibrinogen dRVVT Confirm Interp Factor V Activity POC ABG pH POC ABG pCO2 POC ABG pO2 ABG pO2 ABG HCO3 ABG Base Excess ABG Hemoglobin Oxyhemoglobin Sodium Potassium Chloride Carbon Dioxide BUN Creatinine Glucose POC Glucose 108 H Lactic Acid Calcium Phosphorus Magnesium 1.60 L Direct Bilirubin AST ALT Alkaline Phosphatase Lactate Dehydrogenase Troponin T C-Reactive Protein Total Protein Albumin Prealbumin Triglycerides Cholesterol LDL Cholesterol Direct HDL Cholesterol Urine pH Urine WBC (Auto) Urine Creatinine Urine Total Protein Fluid Total Protein Vancomycin Trough Rheumatoid Factor Complement C4 Miscellaneous Test Crossmatch See Detail 11/25/16 11/25/16 11/25/16 00:03 04:42 04:42 WBC RBC 3.03 L Hgb 8.6 L Hct 25.3 L MCV MCH MCHC RDW 16.2 H Plt Count Lymph % (Auto) [place] % (Auto) 8.1 H Lymph # [place] # Baso # Seg Neutrophils % 71.3 H Seg Neuts % (Manual) Lymphocytes % (Manual) Monocytes % (Manual) Eosinophils % (Manual) Basophils % (Manual) Nucleated RBC % Seg Neutrophils # Seg Neutrophils # Man Lymphocytes # (Manual) Monocytes # (Manual) Eosinophils # (Manual) PT INR Fibrinogen dRVVT Confirm Interp Factor V Activity POC ABG pH POC ABG pCO2 POC ABG pO2 ABG pO2 ABG HCO3 ABG Base Excess ABG Hemoglobin Oxyhemoglobin Sodium Potassium Chloride Carbon Dioxide BUN 61 H Creatinine 3.0 H Glucose 102 H POC Glucose 113 H Lactic Acid Calcium 8.2 L Phosphorus Magnesium Direct Bilirubin AST ALT Alkaline Phosphatase 142 H Lactate Dehydrogenase Troponin T C-Reactive Protein Total Protein 5.7 L Albumin 1.5 L Prealbumin Triglycerides Cholesterol LDL Cholesterol Direct HDL Cholesterol Urine pH Urine WBC (Auto) Urine Creatinine Urine Total Protein Fluid Total Protein Vancomycin Trough Rheumatoid Factor Complement C4 Miscellaneous Test Crossmatch 11/25/16 11/25/16 11/25/16 05:12 11:31 14:12 WBC RBC Hgb Hct MCV MCH MCHC RDW Plt Count Lymph % (Auto) [place] % (Auto) Lymph # [place] # Baso # Seg Neutrophils % Seg Neuts % (Manual) Lymphocytes % (Manual) Monocytes % (Manual) Eosinophils % (Manual) Basophils % (Manual) Nucleated RBC % Seg Neutrophils # Seg Neutrophils # Man Lymphocytes # (Manual) Monocytes # (Manual) Eosinophils # (Manual) PT INR Fibrinogen dRVVT Confirm Interp Factor V Activity POC ABG pH 7.487 H POC ABG pCO2 POC ABG pO2 153 H ABG pO2 ABG HCO3 ABG Base Excess ABG Hemoglobin Oxyhemoglobin Sodium Potassium Chloride Carbon Dioxide BUN Creatinine Glucose POC Glucose 131 H 140 H Lactic Acid Calcium Phosphorus Magnesium Direct Bilirubin AST ALT Alkaline Phosphatase Lactate Dehydrogenase Troponin T C-Reactive Protein Total Protein Albumin Prealbumin Triglycerides Cholesterol LDL Cholesterol Direct HDL Cholesterol Urine pH Urine WBC (Auto) Urine Creatinine Urine Total Protein Fluid Total Protein Vancomycin Trough Rheumatoid Factor Complement C4 Miscellaneous Test Crossmatch 11/25/16 11/26/16 11/26/16 17:23 00:09 05:13 WBC RBC 2.94 L Hgb 8.4 L Hct 24.6 L MCV MCH MCHC RDW 16.4 H Plt Count Lymph % (Auto) [place] % (Auto) 12.3 H Lymph # [place] # 1.1 H Baso # Seg Neutrophils % Seg Neuts % (Manual) Lymphocytes % (Manual) Monocytes % (Manual) Eosinophils % (Manual) Basophils % (Manual) Nucleated RBC % Seg Neutrophils # Seg Neutrophils # Man Lymphocytes # (Manual) Monocytes # (Manual) Eosinophils # (Manual) PT INR Fibrinogen dRVVT Confirm Interp Factor V Activity POC ABG pH POC ABG pCO2 POC ABG pO2 ABG pO2 ABG HCO3 ABG Base Excess ABG Hemoglobin Oxyhemoglobin Sodium Potassium Chloride Carbon Dioxide BUN Creatinine Glucose POC Glucose 146 H 112 H Lactic Acid Calcium Phosphorus Magnesium Direct Bilirubin AST ALT Alkaline Phosphatase Lactate Dehydrogenase Troponin T C-Reactive Protein Total Protein Albumin Prealbumin Triglycerides Cholesterol LDL Cholesterol Direct HDL Cholesterol Urine pH Urine WBC (Auto) Urine Creatinine Urine Total Protein Fluid Total Protein Vancomycin Trough Rheumatoid Factor Complement C4 Miscellaneous Test Crossmatch 11/26/16 11/26/16 11/26/16 05:13 05:28 11:53 WBC RBC Hgb Hct MCV MCH MCHC RDW Plt Count Lymph % (Auto) [place] % (Auto) Lymph # [place] # Baso # Seg Neutrophils % Seg Neuts % (Manual) Lymphocytes % (Manual) Monocytes % (Manual) Eosinophils % (Manual) Basophils % (Manual) Nucleated RBC % Seg Neutrophils # Seg Neutrophils # Man Lymphocytes # (Manual) Monocytes # (Manual) Eosinophils # (Manual) PT INR Fibrinogen dRVVT Confirm Interp Factor V Activity POC ABG pH POC ABG pCO2 POC ABG pO2 ABG pO2 ABG HCO3 ABG Base Excess ABG Hemoglobin Oxyhemoglobin Sodium Potassium Chloride 97.8 L Carbon Dioxide BUN 37 H Creatinine 2.0 H Glucose 109 H POC Glucose 117 H 111 H Lactic Acid Calcium 7.9 L Phosphorus 1.80 L D Magnesium Direct Bilirubin AST ALT Alkaline Phosphatase Lactate Dehydrogenase Troponin T C-Reactive Protein Total Protein Albumin Prealbumin Triglycerides Cholesterol LDL Cholesterol Direct HDL Cholesterol Urine pH Urine WBC (Auto) Urine Creatinine Urine Total Protein Fluid Total Protein Vancomycin Trough Rheumatoid Factor Complement C4 Miscellaneous Test Crossmatch 11/26/16 11/27/16 11/27/16 17:14 04:50 06:02 WBC RBC Hgb Hct MCV MCH MCHC RDW Plt Count Lymph % (Auto) [place] % (Auto) Lymph # [place] # Baso # Seg Neutrophils % Seg Neuts % (Manual) Lymphocytes % (Manual) Monocytes % (Manual) Eosinophils % (Manual) Basophils % (Manual) Nucleated RBC % Seg Neutrophils # Seg Neutrophils # Man Lymphocytes # (Manual) Monocytes # (Manual) Eosinophils # (Manual) PT INR Fibrinogen dRVVT Confirm Interp Factor V Activity POC ABG pH POC ABG pCO2 POC ABG pO2 ABG pO2 75.2 L ABG HCO3 26.4 H ABG Base Excess ABG Hemoglobin 7.6 L Oxyhemoglobin 94.8 L Sodium Potassium Chloride Carbon Dioxide BUN 49 H Creatinine 2.3 H Glucose POC Glucose 115 H Lactic Acid Calcium Phosphorus 1.50 L Magnesium Direct Bilirubin AST ALT Alkaline Phosphatase Lactate Dehydrogenase Troponin T C-Reactive Protein Total Protein Albumin Prealbumin Triglycerides Cholesterol LDL Cholesterol Direct HDL Cholesterol Urine pH Urine WBC (Auto) Urine Creatinine Urine Total Protein Fluid Total Protein Vancomycin Trough Rheumatoid Factor Complement C4 Miscellaneous Test Crossmatch 11/27/16 11/27/16 11/27/16 06:02 11:25 17:25 WBC 11.6 H RBC 2.75 L Hgb 7.6 L Hct 23.4 L MCV MCH MCHC RDW 16.5 H Plt Count Lymph % (Auto) [place] % (Auto) Lymph # [place] # Baso # Seg Neutrophils % Seg Neuts % (Manual) Lymphocytes % (Manual) Monocytes % (Manual) Eosinophils % (Manual) Basophils % (Manual) Nucleated RBC % Seg Neutrophils # Seg Neutrophils # Man Lymphocytes # (Manual) Monocytes # (Manual) Eosinophils # (Manual) PT INR Fibrinogen dRVVT Confirm Interp Factor V Activity POC ABG pH POC ABG pCO2 POC ABG pO2 ABG pO2 ABG HCO3 ABG Base Excess ABG Hemoglobin Oxyhemoglobin Sodium Potassium Chloride Carbon Dioxide BUN Creatinine Glucose POC Glucose 114 H 126 H Lactic Acid Calcium Phosphorus Magnesium Direct Bilirubin AST ALT Alkaline Phosphatase Lactate Dehydrogenase Troponin T C-Reactive Protein Total Protein Albumin Prealbumin Triglycerides Cholesterol LDL Cholesterol Direct HDL Cholesterol Urine pH Urine WBC (Auto) Urine Creatinine Urine Total Protein Fluid Total Protein Vancomycin Trough Rheumatoid Factor Complement C4 Miscellaneous Test Crossmatch 11/28/16 11/28/16 11/28/16 04:45 05:33 05:44 WBC RBC Hgb Hct MCV MCH MCHC RDW Plt Count Lymph % (Auto) [place] % (Auto) Lymph # [place] # Baso # Seg Neutrophils % Seg Neuts % (Manual) Lymphocytes % (Manual) Monocytes % (Manual) Eosinophils % (Manual) Basophils % (Manual) Nucleated RBC % Seg Neutrophils # Seg Neutrophils # Man Lymphocytes # (Manual) Monocytes # (Manual) Eosinophils # (Manual) PT INR Fibrinogen dRVVT Confirm Interp Factor V Activity POC ABG pH POC ABG pCO2 POC ABG pO2 ABG pO2 99.3 H ABG HCO3 ABG Base Excess ABG Hemoglobin 8.3 L Oxyhemoglobin Sodium Potassium Chloride Carbon Dioxide BUN 63 H Creatinine 2.4 H Glucose 102 H POC Glucose 108 H Lactic Acid Calcium Phosphorus 1.80 L Magnesium Direct Bilirubin AST ALT Alkaline Phosphatase Lactate Dehydrogenase Troponin T C-Reactive Protein Total Protein Albumin Prealbumin Triglycerides Cholesterol LDL Cholesterol Direct HDL Cholesterol Urine pH Urine WBC (Auto) Urine Creatinine Urine Total Protein Fluid Total Protein Vancomycin Trough Rheumatoid Factor Complement C4 Miscellaneous Test Crossmatch 11/28/16 11/28/16 11/28/16 12:31 16:09 23:46 WBC RBC Hgb Hct MCV MCH MCHC RDW Plt Count Lymph % (Auto) [place] % (Auto) Lymph # [place] # Baso # Seg Neutrophils % Seg Neuts % (Manual) Lymphocytes % (Manual) Monocytes % (Manual) Eosinophils % (Manual) Basophils % (Manual) Nucleated RBC % Seg Neutrophils # Seg Neutrophils # Man Lymphocytes # (Manual) Monocytes # (Manual) Eosinophils # (Manual) PT INR Fibrinogen dRVVT Confirm Interp Factor V Activity POC ABG pH POC ABG pCO2 POC ABG pO2 ABG pO2 ABG HCO3 ABG Base Excess ABG Hemoglobin Oxyhemoglobin Sodium Potassium Chloride Carbon Dioxide BUN Creatinine Glucose POC Glucose 126 H 111 H 119 H Lactic Acid Calcium Phosphorus Magnesium Direct Bilirubin AST ALT Alkaline Phosphatase Lactate Dehydrogenase Troponin T C-Reactive Protein Total Protein Albumin Prealbumin Triglycerides Cholesterol LDL Cholesterol Direct HDL Cholesterol Urine pH Urine WBC (Auto) Urine Creatinine Urine Total Protein Fluid Total Protein Vancomycin Trough Rheumatoid Factor Complement C4 Miscellaneous Test Crossmatch 11/29/16 11/29/16 11/29/16 03:33 04:52 05:10 WBC RBC Hgb Hct MCV MCH MCHC RDW Plt Count Lymph % (Auto) [place] % (Auto) Lymph # [place] # Baso # Seg Neutrophils % Seg Neuts % (Manual) Lymphocytes % (Manual) Monocytes % (Manual) Eosinophils % (Manual) Basophils % (Manual) Nucleated RBC % Seg Neutrophils # Seg Neutrophils # Man Lymphocytes # (Manual) Monocytes # (Manual) Eosinophils # (Manual) PT INR Fibrinogen dRVVT Confirm Interp Factor V Activity POC ABG pH POC ABG pCO2 POC ABG pO2 ABG pO2 ABG HCO3 ABG Base Excess ABG Hemoglobin 7.0 L Oxyhemoglobin 94.9 L Sodium Potassium Chloride Carbon Dioxide BUN 73 H Creatinine 2.7 H Glucose POC Glucose 108 H Lactic Acid Calcium Phosphorus Magnesium Direct Bilirubin AST ALT Alkaline Phosphatase Lactate Dehydrogenase Troponin T C-Reactive Protein Total Protein Albumin Prealbumin Triglycerides Cholesterol LDL Cholesterol Direct HDL Cholesterol Urine pH Urine WBC (Auto) Urine Creatinine Urine Total Protein Fluid Total Protein Vancomycin Trough Rheumatoid Factor Complement C4 Miscellaneous Test Crossmatch 11/29/16 11/29/16 11/29/16 12:16 18:05 23:46 WBC RBC Hgb Hct MCV MCH MCHC RDW Plt Count Lymph % (Auto) [place] % (Auto) Lymph # [place] # Baso # Seg Neutrophils % Seg Neuts % (Manual) Lymphocytes % (Manual) Monocytes % (Manual) Eosinophils % (Manual) Basophils % (Manual) Nucleated RBC % Seg Neutrophils # Seg Neutrophils # Man Lymphocytes # (Manual) Monocytes # (Manual) Eosinophils # (Manual) PT INR Fibrinogen dRVVT Confirm Interp Factor V Activity POC ABG pH POC ABG pCO2 POC ABG pO2 ABG pO2 ABG HCO3 ABG Base Excess ABG Hemoglobin Oxyhemoglobin Sodium Potassium Chloride Carbon Dioxide BUN Creatinine Glucose POC Glucose 133 H 146 H 141 H Lactic Acid Calcium Phosphorus Magnesium Direct Bilirubin AST ALT Alkaline Phosphatase Lactate Dehydrogenase Troponin T C-Reactive Protein Total Protein Albumin Prealbumin Triglycerides Cholesterol LDL Cholesterol Direct HDL Cholesterol Urine pH Urine WBC (Auto) Urine Creatinine Urine Total Protein Fluid Total Protein Vancomycin Trough Rheumatoid Factor Complement C4 Miscellaneous Test Crossmatch 11/30/16 11/30/16 11/30/16 04:17 04:17 04:32 WBC 12.0 H RBC 2.80 L Hgb 7.8 L Hct 23.6 L MCV MCH MCHC RDW 16.6 H Plt Count Lymph % (Auto) [place] % (Auto) 11.3 H Lymph # [place] # 1.4 H Baso # Seg Neutrophils % Seg Neuts % (Manual) Lymphocytes % (Manual) Monocytes % (Manual) Eosinophils % (Manual) Basophils % (Manual) Nucleated RBC % Seg Neutrophils # 8.2 H Seg Neutrophils # Man Lymphocytes # (Manual) Monocytes # (Manual) Eosinophils # (Manual) PT INR Fibrinogen dRVVT Confirm Interp Factor V Activity POC ABG pH POC ABG pCO2 POC ABG pO2 ABG pO2 ABG HCO3 ABG Base Excess ABG Hemoglobin Oxyhemoglobin Sodium 169 H* D Potassium 5.1 H Chloride 121.5 H Carbon Dioxide BUN 34 H Creatinine 1.3 H D Glucose 133 H POC Glucose 131 H Lactic Acid Calcium 10.3 H Phosphorus Magnesium Direct Bilirubin AST ALT Alkaline Phosphatase Lactate Dehydrogenase Troponin T C-Reactive Protein Total Protein Albumin Prealbumin Triglycerides Cholesterol LDL Cholesterol Direct HDL Cholesterol Urine pH Urine WBC (Auto) Urine Creatinine Urine Total Protein Fluid Total Protein Vancomycin Trough Rheumatoid Factor Complement C4 Miscellaneous Test Crossmatch 11/30/16 11/30/16 11/30/16 05:45 11:10 17:26 WBC RBC Hgb Hct MCV MCH MCHC RDW Plt Count Lymph % (Auto) [place] % (Auto) Lymph # [place] # Baso # Seg Neutrophils % Seg Neuts % (Manual) Lymphocytes % (Manual) Monocytes % (Manual) Eosinophils % (Manual) Basophils % (Manual) Nucleated RBC % Seg Neutrophils # Seg Neutrophils # Man Lymphocytes # (Manual) Monocytes # (Manual) Eosinophils # (Manual) PT INR Fibrinogen dRVVT Confirm Interp Factor V Activity POC ABG pH POC ABG pCO2 POC ABG pO2 ABG pO2 ABG HCO3 ABG Base Excess ABG Hemoglobin Oxyhemoglobin Sodium Potassium Chloride Carbon Dioxide BUN 45 H Creatinine 1.6 H Glucose 131 H POC Glucose 146 H 134 H Lactic Acid Calcium Phosphorus Magnesium Direct Bilirubin AST ALT Alkaline Phosphatase Lactate Dehydrogenase Troponin T C-Reactive Protein Total Protein Albumin Prealbumin Triglycerides Cholesterol LDL Cholesterol Direct HDL Cholesterol Urine pH Urine WBC (Auto) Urine Creatinine Urine Total Protein Fluid Total Protein Vancomycin Trough Rheumatoid Factor Complement C4 Miscellaneous Test Crossmatch 11/30/16 12/01/16 12/01/16 23:35 00:06 03:35 WBC RBC Hgb Hct MCV MCH MCHC RDW Plt Count Lymph % (Auto) [place] % (Auto) Lymph # [place] # Baso # Seg Neutrophils % Seg Neuts % (Manual) Lymphocytes % (Manual) Monocytes % (Manual) Eosinophils % (Manual) Basophils % (Manual) Nucleated RBC % Seg Neutrophils # Seg Neutrophils # Man Lymphocytes # (Manual) Monocytes # (Manual) Eosinophils # (Manual) PT INR Fibrinogen dRVVT Confirm Interp Factor V Activity POC ABG pH POC ABG pCO2 POC ABG pO2 ABG pO2 ABG HCO3 ABG Base Excess ABG Hemoglobin 6.9 L Oxyhemoglobin Sodium Potassium Chloride Carbon Dioxide BUN 58 H Creatinine 1.8 H Glucose 146 H POC Glucose 151 H Lactic Acid Calcium Phosphorus Magnesium Direct Bilirubin AST ALT Alkaline Phosphatase Lactate Dehydrogenase Troponin T C-Reactive Protein Total Protein Albumin Prealbumin Triglycerides Cholesterol LDL Cholesterol Direct HDL Cholesterol Urine pH Urine WBC (Auto) Urine Creatinine Urine Total Protein Fluid Total Protein Vancomycin Trough Rheumatoid Factor Complement C4 Miscellaneous Test Crossmatch 12/01/16 12/01/16 12/01/16 03:35 05:47 11:52 WBC 12.3 H RBC 2.82 L Hgb 7.8 L Hct 23.7 L MCV MCH MCHC RDW 16.7 H Plt Count Lymph % (Auto) [place] % (Auto) 9.8 H Lymph # [place] # 1.2 H Baso # Seg Neutrophils % Seg Neuts % (Manual) Lymphocytes % (Manual) Monocytes % (Manual) Eosinophils % (Manual) Basophils % (Manual) Nucleated RBC % Seg Neutrophils # 8.4 H Seg Neutrophils # Man Lymphocytes # (Manual) Monocytes # (Manual) Eosinophils # (Manual) PT INR Fibrinogen dRVVT Confirm Interp Factor V Activity POC ABG pH POC ABG pCO2 POC ABG pO2 ABG pO2 ABG HCO3 ABG Base Excess ABG Hemoglobin Oxyhemoglobin Sodium Potassium Chloride Carbon Dioxide BUN Creatinine Glucose POC Glucose 152 H 152 H Lactic Acid Calcium Phosphorus Magnesium Direct Bilirubin AST ALT Alkaline Phosphatase Lactate Dehydrogenase Troponin T C-Reactive Protein Total Protein Albumin Prealbumin Triglycerides Cholesterol LDL Cholesterol Direct HDL Cholesterol Urine pH Urine WBC (Auto) Urine Creatinine Urine Total Protein Fluid Total Protein Vancomycin Trough Rheumatoid Factor Complement C4 Miscellaneous Test Crossmatch 12/01/16 12/01/16 12/02/16 17:40 23:41 05:00 WBC RBC Hgb Hct MCV MCH MCHC RDW Plt Count Lymph % (Auto) [place] % (Auto) Lymph # [place] # Baso # Seg Neutrophils % Seg Neuts % (Manual) Lymphocytes % (Manual) Monocytes % (Manual) Eosinophils % (Manual) Basophils % (Manual) Nucleated RBC % Seg Neutrophils # Seg Neutrophils # Man Lymphocytes # (Manual) Monocytes # (Manual) Eosinophils # (Manual) PT INR Fibrinogen dRVVT Confirm Interp Factor V Activity POC ABG pH POC ABG pCO2 POC ABG pO2 ABG pO2 ABG HCO3 ABG Base Excess ABG Hemoglobin Oxyhemoglobin Sodium Potassium Chloride Carbon Dioxide BUN 45 H Creatinine Glucose 115 H POC Glucose 140 H 144 H Lactic Acid Calcium Phosphorus Magnesium Direct Bilirubin AST ALT Alkaline Phosphatase Lactate Dehydrogenase Troponin T C-Reactive Protein Total Protein Albumin Prealbumin Triglycerides Cholesterol LDL Cholesterol Direct HDL Cholesterol Urine pH Urine WBC (Auto) Urine Creatinine Urine Total Protein Fluid Total Protein Vancomycin Trough Rheumatoid Factor Complement C4 Miscellaneous Test Crossmatch 12/02/16 12/02/16 12/02/16 05:31 11:20 17:38 WBC RBC Hgb Hct MCV MCH MCHC RDW Plt Count Lymph % (Auto) [place] % (Auto) Lymph # [place] # Baso # Seg Neutrophils % Seg Neuts % (Manual) Lymphocytes % (Manual) Monocytes % (Manual) Eosinophils % (Manual) Basophils % (Manual) Nucleated RBC % Seg Neutrophils # Seg Neutrophils # Man Lymphocytes # (Manual) Monocytes # (Manual) Eosinophils # (Manual) PT INR Fibrinogen dRVVT Confirm Interp Factor V Activity POC ABG pH POC ABG pCO2 POC ABG pO2 ABG pO2 ABG HCO3 ABG Base Excess ABG Hemoglobin Oxyhemoglobin Sodium Potassium Chloride Carbon Dioxide BUN Creatinine Glucose POC Glucose 136 H 177 H 139 H Lactic Acid Calcium Phosphorus Magnesium Direct Bilirubin AST ALT Alkaline Phosphatase Lactate Dehydrogenase Troponin T C-Reactive Protein Total Protein Albumin Prealbumin Triglycerides Cholesterol LDL Cholesterol Direct HDL Cholesterol Urine pH Urine WBC (Auto) Urine Creatinine Urine Total Protein Fluid Total Protein Vancomycin Trough Rheumatoid Factor Complement C4 Miscellaneous Test Crossmatch 12/02/16 12/03/16 12/03/16 23:43 04:00 04:00 WBC 20.4 H RBC 2.74 L Hgb 7.4 L Hct 23.6 L MCV MCH 27 L MCHC RDW 17.1 H Plt Count Lymph % (Auto) [place] % (Auto) Lymph # [place] # Baso # Seg Neutrophils % Seg Neuts % (Manual) 31.0 L Lymphocytes % (Manual) Monocytes % (Manual) Eosinophils % (Manual) Basophils % (Manual) Nucleated RBC % Seg Neutrophils # Seg Neutrophils # Man Lymphocytes # (Manual) Monocytes # (Manual) Eosinophils # (Manual) PT INR Fibrinogen dRVVT Confirm Interp Factor V Activity POC ABG pH POC ABG pCO2 POC ABG pO2 ABG pO2 ABG HCO3 ABG Base Excess ABG Hemoglobin Oxyhemoglobin Sodium Potassium Chloride Carbon Dioxide BUN 61 H Creatinine 1.6 H Glucose 119 H POC Glucose 158 H Lactic Acid Calcium Phosphorus Magnesium Direct Bilirubin AST ALT Alkaline Phosphatase Lactate Dehydrogenase Troponin T C-Reactive Protein Total Protein Albumin Prealbumin Triglycerides Cholesterol LDL Cholesterol Direct HDL Cholesterol Urine pH Urine WBC (Auto) Urine Creatinine Urine Total Protein Fluid Total Protein Vancomycin Trough Rheumatoid Factor Complement C4 Miscellaneous Test Crossmatch 12/03/16 12/03/16 12/03/16 05:02 12:11 18:16 WBC RBC Hgb Hct MCV MCH MCHC RDW Plt Count Lymph % (Auto) [place] % (Auto) Lymph # [place] # Baso # Seg Neutrophils % Seg Neuts % (Manual) Lymphocytes % (Manual) Monocytes % (Manual) Eosinophils % (Manual) Basophils % (Manual) Nucleated RBC % Seg Neutrophils # Seg Neutrophils # Man Lymphocytes # (Manual) Monocytes # (Manual) Eosinophils # (Manual) PT INR Fibrinogen dRVVT Confirm Interp Factor V Activity POC ABG pH POC ABG pCO2 POC ABG pO2 ABG pO2 ABG HCO3 ABG Base Excess ABG Hemoglobin Oxyhemoglobin Sodium Potassium Chloride Carbon Dioxide BUN Creatinine Glucose POC Glucose 146 H 157 H 124 H Lactic Acid Calcium Phosphorus Magnesium Direct Bilirubin AST ALT Alkaline Phosphatase Lactate Dehydrogenase Troponin T C-Reactive Protein Total Protein Albumin Prealbumin Triglycerides Cholesterol LDL Cholesterol Direct HDL Cholesterol Urine pH Urine WBC (Auto) Urine Creatinine Urine Total Protein Fluid Total Protein Vancomycin Trough Rheumatoid Factor Complement C4 Miscellaneous Test Crossmatch 12/03/16 12/04/16 12/04/16 23:41 04:00 04:45 WBC RBC Hgb Hct MCV MCH MCHC RDW Plt Count Lymph % (Auto) [place] % (Auto) Lymph # [place] # Baso # Seg Neutrophils % Seg Neuts % (Manual) Lymphocytes % (Manual) Monocytes % (Manual) Eosinophils % (Manual) Basophils % (Manual) Nucleated RBC % Seg Neutrophils # Seg Neutrophils # Man Lymphocytes # (Manual) Monocytes # (Manual) Eosinophils # (Manual) PT INR Fibrinogen dRVVT Confirm Interp Factor V Activity POC ABG pH POC ABG pCO2 POC ABG pO2 ABG pO2 ABG HCO3 ABG Base Excess ABG Hemoglobin Oxyhemoglobin Sodium Potassium Chloride Carbon Dioxide BUN 76 H Creatinine 1.6 H Glucose POC Glucose 130 H 136 H Lactic Acid Calcium Phosphorus Magnesium Direct Bilirubin AST ALT Alkaline Phosphatase 155 H Lactate Dehydrogenase Troponin T C-Reactive Protein Total Protein 5.5 L Albumin 1.5 L Prealbumin Triglycerides Cholesterol LDL Cholesterol Direct HDL Cholesterol Urine pH Urine WBC (Auto) Urine Creatinine Urine Total Protein Fluid Total Protein Vancomycin Trough Rheumatoid Factor Complement C4 Miscellaneous Test Crossmatch 12/04/16 12/04/16 12/05/16 12:08 17:23 00:10 WBC RBC Hgb Hct MCV MCH MCHC RDW Plt Count Lymph % (Auto) [place] % (Auto) Lymph # [place] # Baso # Seg Neutrophils % Seg Neuts % (Manual) Lymphocytes % (Manual) Monocytes % (Manual) Eosinophils % (Manual) Basophils % (Manual) Nucleated RBC % Seg Neutrophils # Seg Neutrophils # Man Lymphocytes # (Manual) Monocytes # (Manual) Eosinophils # (Manual) PT INR Fibrinogen dRVVT Confirm Interp Factor V Activity POC ABG pH POC ABG pCO2 POC ABG pO2 ABG pO2 ABG HCO3 ABG Base Excess ABG Hemoglobin Oxyhemoglobin Sodium Potassium Chloride Carbon Dioxide BUN Creatinine Glucose POC Glucose 114 H 129 H 124 H Lactic Acid Calcium Phosphorus Magnesium Direct Bilirubin AST ALT Alkaline Phosphatase Lactate Dehydrogenase Troponin T C-Reactive Protein Total Protein Albumin Prealbumin Triglycerides Cholesterol LDL Cholesterol Direct HDL Cholesterol Urine pH Urine WBC (Auto) Urine Creatinine Urine Total Protein Fluid Total Protein Vancomycin Trough Rheumatoid Factor Complement C4 Miscellaneous Test Crossmatch 12/05/16 12/05/16 12/05/16 05:00 05:00 05:18 WBC RBC Hgb Hct MCV MCH MCHC RDW Plt Count Lymph % (Auto) [place] % (Auto) Lymph # [place] # Baso # Seg Neutrophils % Seg Neuts % (Manual) Lymphocytes % (Manual) Monocytes % (Manual) Eosinophils % (Manual) Basophils % (Manual) Nucleated RBC % Seg Neutrophils # Seg Neutrophils # Man Lymphocytes # (Manual) Monocytes # (Manual) Eosinophils # (Manual) PT INR Fibrinogen dRVVT Confirm Interp Factor V Activity POC ABG pH POC ABG pCO2 POC ABG pO2 ABG pO2 ABG HCO3 ABG Base Excess ABG Hemoglobin Oxyhemoglobin Sodium Potassium Chloride Carbon Dioxide 21 L BUN 85 H Creatinine 1.9 H Glucose 131 H POC Glucose 154 H Lactic Acid Calcium Phosphorus Magnesium Direct Bilirubin AST ALT Alkaline Phosphatase Lactate Dehydrogenase Troponin T C-Reactive Protein 19.30 H Total Protein Albumin Prealbumin Triglycerides Cholesterol LDL Cholesterol Direct HDL Cholesterol Urine pH Urine WBC (Auto) Urine Creatinine Urine Total Protein Fluid Total Protein Vancomycin Trough Rheumatoid Factor Complement C4 Miscellaneous Test Crossmatch 12/05/16 12/05/16 12/05/16 11:43 17:46 23:25 WBC RBC Hgb Hct MCV MCH MCHC RDW Plt Count Lymph % (Auto) [place] % (Auto) Lymph # [place] # Baso # Seg Neutrophils % Seg Neuts % (Manual) Lymphocytes % (Manual) Monocytes % (Manual) Eosinophils % (Manual) Basophils % (Manual) Nucleated RBC % Seg Neutrophils # Seg Neutrophils # Man Lymphocytes # (Manual) Monocytes # (Manual) Eosinophils # (Manual) PT INR Fibrinogen dRVVT Confirm Interp Factor V Activity POC ABG pH POC ABG pCO2 POC ABG pO2 ABG pO2 ABG HCO3 ABG Base Excess ABG Hemoglobin Oxyhemoglobin Sodium Potassium Chloride Carbon Dioxide BUN Creatinine Glucose POC Glucose 117 H 113 H 111 H Lactic Acid Calcium Phosphorus Magnesium Direct Bilirubin AST ALT Alkaline Phosphatase Lactate Dehydrogenase Troponin T C-Reactive Protein Total Protein Albumin Prealbumin Triglycerides Cholesterol LDL Cholesterol Direct HDL Cholesterol Urine pH Urine WBC (Auto) Urine Creatinine Urine Total Protein Fluid Total Protein Vancomycin Trough Rheumatoid Factor Complement C4 Miscellaneous Test Crossmatch 12/05/16 12/06/16 12/06/16 Unknown 04:58 06:00 WBC RBC Hgb Hct MCV MCH MCHC RDW Plt Count Lymph % (Auto) [place] % (Auto) Lymph # [place] # Baso # Seg Neutrophils % Seg Neuts % (Manual) Lymphocytes % (Manual) Monocytes % (Manual) Eosinophils % (Manual) Basophils % (Manual) Nucleated RBC % Seg Neutrophils # Seg Neutrophils # Man Lymphocytes # (Manual) Monocytes # (Manual) Eosinophils # (Manual) PT INR Fibrinogen dRVVT Confirm Interp Factor V Activity POC ABG pH POC ABG pCO2 POC ABG pO2 ABG pO2 75.2 L ABG HCO3 ABG Base Excess -3.4 L ABG Hemoglobin 7.4 L Oxyhemoglobin 94.5 L Sodium Potassium Chloride Carbon Dioxide 20 L BUN 99 H Creatinine 2.1 H Glucose 126 H POC Glucose 145 H Lactic Acid Calcium Phosphorus 4.80 H Magnesium Direct Bilirubin AST ALT Alkaline Phosphatase Lactate Dehydrogenase Troponin T C-Reactive Protein Total Protein Albumin Prealbumin Triglycerides Cholesterol LDL Cholesterol Direct HDL Cholesterol Urine pH Urine WBC (Auto) Urine Creatinine Urine Total Protein Fluid Total Protein Vancomycin Trough Rheumatoid Factor Complement C4 Miscellaneous Test Crossmatch 12/06/16 12/06/16 12/06/16 06:46 11:54 17:55 WBC RBC Hgb 8.3 L Hct 26.4 L MCV MCH MCHC RDW Plt Count Lymph % (Auto) [place] % (Auto) Lymph # [place] # Baso # Seg Neutrophils % Seg Neuts % (Manual) Lymphocytes % (Manual) Monocytes % (Manual) Eosinophils % (Manual) Basophils % (Manual) Nucleated RBC % Seg Neutrophils # Seg Neutrophils # Man Lymphocytes # (Manual) Monocytes # (Manual) Eosinophils # (Manual) PT INR Fibrinogen dRVVT Confirm Interp Factor V Activity POC ABG pH POC ABG pCO2 POC ABG pO2 ABG pO2 ABG HCO3 ABG Base Excess ABG Hemoglobin Oxyhemoglobin Sodium Potassium Chloride Carbon Dioxide BUN Creatinine Glucose POC Glucose 126 H 157 H Lactic Acid Calcium Phosphorus Magnesium Direct Bilirubin AST ALT Alkaline Phosphatase Lactate Dehydrogenase Troponin T C-Reactive Protein Total Protein Albumin Prealbumin Triglycerides Cholesterol LDL Cholesterol Direct HDL Cholesterol Urine pH Urine WBC (Auto) Urine Creatinine Urine Total Protein Fluid Total Protein Vancomycin Trough Rheumatoid Factor Complement C4 Miscellaneous Test Crossmatch 12/06/16 12/07/16 12/07/16 23:59 05:34 06:30 WBC RBC Hgb Hct MCV MCH MCHC RDW Plt Count Lymph % (Auto) [place] % (Auto) Lymph # [place] # Baso # Seg Neutrophils % Seg Neuts % (Manual) Lymphocytes % (Manual) Monocytes % (Manual) Eosinophils % (Manual) Basophils % (Manual) Nucleated RBC % Seg Neutrophils # Seg Neutrophils # Man Lymphocytes # (Manual) Monocytes # (Manual) Eosinophils # (Manual) PT INR Fibrinogen dRVVT Confirm Interp Factor V Activity POC ABG pH POC ABG pCO2 POC ABG pO2 ABG pO2 ABG HCO3 ABG Base Excess ABG Hemoglobin Oxyhemoglobin Sodium Potassium Chloride Carbon Dioxide BUN 67 H Creatinine 1.4 H Glucose 126 H POC Glucose 129 H 129 H Lactic Acid Calcium Phosphorus Magnesium Direct Bilirubin AST ALT Alkaline Phosphatase Lactate Dehydrogenase Troponin T C-Reactive Protein Total Protein Albumin Prealbumin Triglycerides Cholesterol LDL Cholesterol Direct HDL Cholesterol Urine pH Urine WBC (Auto) Urine Creatinine Urine Total Protein Fluid Total Protein Vancomycin Trough Rheumatoid Factor Complement C4 Miscellaneous Test Crossmatch 12/07/16 12/07/16 06:30 08:00 WBC 18.8 H RBC 2.52 L Hgb 6.9 L 6.8 L Hct 21.2 L 21.1 L MCV MCH 27 L MCHC RDW 18.0 H Plt Count Lymph % (Auto) [place] % (Auto) 9.9 H Lymph # [place] # 1.9 H Baso # Seg Neutrophils % 71.8 H Seg Neuts % (Manual) Lymphocytes % (Manual) Monocytes % (Manual) Eosinophils % (Manual) Basophils % (Manual) Nucleated RBC % Seg Neutrophils # 13.5 H Seg Neutrophils # Man Lymphocytes # (Manual) Monocytes # (Manual) Eosinophils # (Manual) PT INR Fibrinogen dRVVT Confirm Interp Factor V Activity POC ABG pH POC ABG pCO2 POC ABG pO2 ABG pO2 ABG HCO3 ABG Base Excess ABG Hemoglobin Oxyhemoglobin Sodium Potassium Chloride Carbon Dioxide BUN Creatinine Glucose POC Glucose Lactic Acid Calcium Phosphorus Magnesium Direct Bilirubin AST ALT Alkaline Phosphatase Lactate Dehydrogenase Troponin T C-Reactive Protein Total Protein Albumin Prealbumin Triglycerides Cholesterol LDL Cholesterol Direct HDL Cholesterol Urine pH Urine WBC (Auto) Urine Creatinine Urine Total Protein Fluid Total Protein Vancomycin Trough Rheumatoid Factor Complement C4 Miscellaneous Test Crossmatch Allied health notes reviewed: RT
[2016-12-07] MEDS: HEPARIN SUB-Q SCH ×2 (09:38→21:53)
[2016-12-07] MEDS: PROTONIX FEEDTUBE SCH (09:38)
[2016-12-07] MEDS: NORVASC PO SCH (09:39)
[2016-12-07] MEDS: ROBINUL PO SCH ×2 (09:46→21:52)
--- NOTE | 2016-12-07 11:18 | Progress Note ---
Assessment and Plan Assessment and plan: Patient is 46-year-old woman with a history of hypertension, diabetes, asthma, hyperlipidemia, chronic kidney disease and anxiety , who was brought in by family because, she couldn't get her words out, her face was also twisted, she was admitted for acute CVA and accelerated hypertension, she had a hx of poor adherence with her medications, and uncontrolled htn. Patient's SBP on admission was noted be greater than 260. TPA was started but this was discontinued after 5 minutes because her blood pressure became uncontrolled. The TPA was not initiated again because the patient was outside the TPA window. Patient has had a prolonged hospital stay complicated with recurrent severe sepsis. Patient with most recent event also status post cardiac arrest on and received CPR. --Severe Sepsis with septic shock, recurrent. Patient with multiple episodes of sepsis. Initial episode due to presumed aspiration pneumonia and septic episode on 09/23 from candidemia then a third episode from peritonitis from gastric perforation from dislodged PEG +/-UTI. Patient was also noted to have had Candidemia with Blood cultures positive for Silvia albicans 09/23, 09/25 but negative on 09/30. Antibiotic discontinued on 12/05 per ID. patient is s/p R thoracentesis on 11/14, 240cc of serous fluid removed, cx of fluid was negative.also Stool negative for C. difficile --Surgical wound infection/gram-negative sepsis/candidemia/peritonitis. PEG has been removed and pus is drained from the PEG site and patient is Currently on tube feeding. Continue wound care to ostomy sites --Acute hypoxic respiratory failure, status post tracheostomy Pulmonary following --Acute massive CVA with mass effect; continue antiplatelets and statins -Neurology input appreciated CT shows continued evolution of left MCA infarct with slight mass effect and edema, and there is no hemorrhage -PRINCE showed hyperdynamic with ef of 75%, neither clot nor septal defect seen -MRA Brain shows near complete occlusion of M2 and M3 of the left MCA Repeat CT scan done on 09/11, shows stable findings carotid doppler negative -Echo shows preserved systolic function but does show some left ventricular diastolic dysfunction -continue asa and statin --Oliguric acute kidney injury. Etiology secondary to ATN on CKD. Baseline creatinine is approximately 1.7. --Paroxysmal atrial fibrillation with rapid ventricular rate, failed cardioversion Continue current medications, Not a candidate for anticoagulation secondary to anemia thrombocytopenia and massive CVA --Anemia; probably secondary to GI bleeding Patient received multiple units of PRBC in the past, hemoglobin has trended down to 6.8. Type and cross and transfuse 1 unit re-consult GI if needed Recheck Hemoccult stool -Toxic metabolic encephalopathy; supportive care --Diabetes mellitus type 2, Insulin/SSI --Severe protein caloric malnutrition, cont TPN --s/p Thrombocytopenia. Now resolved --DVT prophylaxis, SCDs, no pharmacological agent given anemia , thrombocytopenia, massive stroke --Full code status, very poor prognosis Dispo. Very poor prognosis. Have been explained by the hospitalist group and the transmitter tester about the poor prognosis of the patient but the family said she may make it and refused hospice evaluation. The high probability of a clinically significant, sudden or life threatening deterioration of the [respiratory, GI, immunological and cardiovascular] system( s) required my full and direct attention, intervention and personal management. The aggregate critical care time was [31] minutes. This time is in addition to time spent performing reported procedures but includes the following: [x] Data Review and interpretation [x] Patient assessment and monitoring of vital signs [x] Documentation [x] Medication orders and management History Interval history: No new issues overnight. Hospitalist Physical - Constitutional Vitals: Temp Pulse Resp BP Pulse Ox 98.6 F 116 H 33 H 123/74 100 12/07/16 08:00 12/07/16 10:34 12/07/16 10:34 12/07/16 10:34 12/07/16 10:34 General appearance: Present: no acute distress - EENT Eyes: Present: PERRL, EOM intact ENT: hearing intact, clear oral mucosa, dentition normal - Neck Neck: Present: supple, normal ROM - Respiratory Respiratory effort: normal Respiratory: bilateral: CTA - Cardiovascular Rhythm: regular Heart Sounds: Present: S1 & S2. Absent: gallop, rub - Extremities Extremities: no ischemia, No edema, Full ROM - Abdominal General gastrointestinal: soft, non-tender, non-distended, normal bowel sounds - Integumentary Integumentary: Present: clear, warm, dry - Neurologic Neurologic: other (unresponsive) Results - Labs CBC & Chem 7: 12/07/16 08:00 12/07/16 06:30 Labs: Laboratory Last Values WBC 18.8 K/mm3 (4.5-11.0) H 12/07/16 06:30 RBC 2.52 M/mm3 (3.65-5.03) L 12/07/16 06:30 Hgb 6.8 gm/dl (10.1-14.3) L 12/07/16 08:00 Hct 21.1 % (30.3-42.9) L 12/07/16 08:00 MCV 84 fl (79-97) 12/07/16 06:30 MCH 27 pg (28-32) L 12/07/16 06:30 MCHC 32 % (30-34) 12/07/16 06:30 RDW 18.0 % (13.2-15.2) H 12/07/16 06:30 Plt Count 353 K/mm3 (140-440) 12/07/16 06:30 Lymph % (Auto) 17.7 % (13.4-35.0) 12/07/16 06:30 [place] % (Auto) 9.9 % (0.0-7.3) H 12/07/16 06:30 Eos % (Auto) 0.4 % (0.0-4.3) 12/07/16 06:30 Baso % (Auto) 0.2 % (0.0-1.8) 12/07/16 06:30 Lymph # 3.3 K/mm3 (1.2-5.4) 12/07/16 06:30 [place] # 1.9 K/mm3 (0.0-0.8) H 12/07/16 06:30 Eos # 0.1 K/mm3 (0.0-0.4) 12/07/16 06:30 Baso # 0.0 K/mm3 (0.0-0.1) 12/07/16 06:30 Add Manual Diff Complete 12/03/16 04:00 Total Counted 100 12/03/16 04:00 Seg Neutrophils % 71.8 % (40.0-70.0) H 12/07/16 06:30 Seg Neuts % (Manual) 31.0 % (40.0-70.0) L 12/03/16 04:00 Band Neutrophils % 39.0 % 12/03/16 04:00 Lymphocytes % (Manual) 22.0 % (13.4-35.0) 12/03/16 04:00 Reactive Lymphs % (Man) 0 % 12/03/16 04:00 Monocytes % (Manual) 3.0 % (0.0-7.3) 12/03/16 04:00 Eosinophils % (Manual) 1.0 % (0.0-4.3) 12/03/16 04:00 Basophils % (Manual) 0 % (0.0-1.8) 12/03/16 04:00 Metamyelocytes % 4.0 % 12/03/16 04:00 Myelocytes % 0 % 12/03/16 04:00 Promyelocytes % 0 % 12/03/16 04:00 Blast Cells % 0 % 12/03/16 04:00 Nucleated RBC % Not Reportable 12/03/16 04:00 Seg Neutrophils # 13.5 K/mm3 (1.8-7.7) H 12/07/16 06:30 Seg Neutrophils # Man 6.3 K/mm3 (1.8-7.7) 12/03/16 04:00 Band Neutrophils # 8.0 K/mm3 12/03/16 04:00 Lymphocytes # (Manual) 4.5 K/mm3 (1.2-5.4) 12/03/16 04:00 Abs React Lymphs (Man) 0.0 K/mm3 12/03/16 04:00 Monocytes # (Manual) 0.6 K/mm3 (0.0-0.8) 12/03/16 04:00 Eosinophils # (Manual) 0.2 K/mm3 (0.0-0.4) 12/03/16 04:00 Basophils # (Manual) 0.0 K/mm3 (0.0-0.1) 12/03/16 04:00 Metamyelocytes # 0.8 K/mm3 12/03/16 04:00 Myelocytes # 0.0 K/mm3 12/03/16 04:00 Promyelocytes # 0.0 K/mm3 12/03/16 04:00 Blast Cells # 0.0 K/mm3 12/03/16 04:00 Pathologist Review 09/13/16 04:00 WBC Morphology Not Reportable 12/03/16 04:00 Hypersegmented Neuts Not Reportable 12/03/16 04:00 Hyposegmented Neuts Not Reportable 12/03/16 04:00 Hypogranular Neuts Not Reportable 12/03/16 04:00 Smudge Cells Not Reportable 12/03/16 04:00 Toxic Granulation Not Reportable 12/03/16 04:00 Toxic Vacuolation Not Reportable 12/03/16 04:00 Dohle Bodies Rare 12/03/16 04:00 Pelger-Huet Anomaly Not Reportable 12/03/16 04:00 Jasmina Rods Not Reportable 12/03/16 04:00 Platelet Estimate Appears normal 12/03/16 04:00 Clumped Platelets Not Reportable 12/03/16 04:00 Plt Clumps, EDTA Not Reportable 12/03/16 04:00 Large Platelets Not Reportable 12/03/16 04:00 Giant Platelets Not Reportable 12/03/16 04:00 Platelet Satelliting Not Reportable 12/03/16 04:00 Plt Morphology Comment Not Reportable 12/03/16 04:00 RBC Morphology Not Reportable 12/03/16 04:00 Dimorphic RBCs Not Reportable 12/03/16 04:00 Polychromasia Few 12/03/16 04:00 Hypochromasia 1+ 12/03/16 04:00 Poikilocytosis Not Reportable 12/03/16 04:00 Anisocytosis 1+ 12/03/16 04:00 Microcytosis Not Reportable 12/03/16 04:00 Macrocytosis Not Reportable 12/03/16 04:00 Spherocytes Not Reportable 12/03/16 04:00 Pappenheimer Bodies Not Reportable 12/03/16 04:00 Sickle Cells Not Reportable 12/03/16 04:00 Target Cells Rare 12/03/16 04:00 Tear Drop Cells Not Reportable 12/03/16 04:00 Ovalocytes Not Reportable 12/03/16 04:00 Stomatocytes Rare 12/03/16 04:00 Helmet Cells Not Reportable 12/03/16 04:00 [place] Bodies Not Reportable 12/03/16 04:00 [place] Rings Not Reportable 12/03/16 04:00 Chuck Cells Not Reportable 12/03/16 04:00 Bite Cells Not Reportable 12/03/16 04:00 Crenated Cell Not Reportable 12/03/16 04:00 Elliptocytes Not Reportable 12/03/16 04:00 Acanthocytes (Spur) Not Reportable 12/03/16 04:00 Rouleaux Not Reportable 12/03/16 04:00 Hemoglobin C Crystals Not Reportable 12/03/16 04:00 Schistocytes Not Reportable 12/03/16 04:00 Malaria parasites Not Reportable 12/03/16 04:00 ESR > 140.0 mm/Hr (0-20) 09/08/16 11:48 Jun Bodies Not Reportable 12/03/16 04:00 Hem Pathologist Commnt No 12/03/16 04:00 PT 16.8 Sec. (12.2-14.9) H 11/17/16 03:20 INR 1.37 (0.87-1.13) H 11/17/16 03:20 APTT 33.0 Sec. (24.2-36.6) 10/09/16 03:45 Thrombin Time 16.8 Sec. (15.1-19.6) 09/03/16 00:10 Fibrinogen 750 mg/dl (211-480) H 09/08/16 11:48 Lupus Anticoagulant see below 09/12/16 09:59 LA PTT Baseline See scanned report 09/12/16 09:59 dRVVT Confirm Interp Positive (Negative) H 09/12/16 09:59 dRVVT Screen 50:50 See scanned report 09/12/16 09:59 dRVVT Mix Interpret See scanned report 09/12/16 09:59 Protein C Antigen 122 % (70-140) 09/08/16 15:35 Free Protein S 97 % normal (50-147) 09/08/16 15:35 Total Protein S 109 % (70-140) 09/08/16 15:35 Antithrombin III Ag 100 % (80-120) 09/08/16 15:35 Heparin Anti-Xa, Unfract Negative (Negative) 09/29/16 13:35 Factor V Activity 182 % (65-150) H 09/08/16 15:35 POC ABG pH 7.487 (7.35-7.45) H 11/25/16 14:12 ABG pH 7.450 pH Units (7.350-7.450) 12/05/16 Unknown POC ABG pCO2 39.0 (35-45) 11/25/16 14:12 ABG pCO2 29.6 mm Hg 12/05/16 Unknown POC ABG pO2 153 (80-105) H 11/25/16 14:12 ABG pO2 75.2 mm Hg (80.0-90.0) L 12/05/16 Unknown POC ABG HCO3 29.5 11/25/16 14:12 ABG HCO3 20.1 mmol/L (20.0-26.0) 12/05/16 Unknown POC ABG Total CO2 31 11/25/16 14:12 POC ABG O2 Sat 99 11/25/16 14:12 ABG O2 Saturation 96.8 % (95.0-99.0) 12/05/16 Unknown ABG O2 Content 9.9 (0.0-44) 12/05/16 Unknown POC ABG Base Excess 6 11/25/16 14:12 ABG Base Excess -3.4 mmol/L (-2.0-3.0) L 12/05/16 Unknown ABG Hemoglobin 7.4 gm/dl (12.0-16.0) L 12/05/16 Unknown ABG Carboxyhemoglobin 1.8 % (0.0-5.0) 12/05/16 Unknown ABG Methemoglobin 0.6 % (0.0-1.5) 12/05/16 Unknown Oxyhemoglobin 94.5 % (95.0-99.0) L 12/05/16 Unknown FiO2 30 % 12/05/16 Unknown Sodium 142 mmol/L (137-145) 12/07/16 06:30 Potassium 4.0 mmol/L (3.6-5.0) 12/07/16 06:30 Chloride 102.5 mmol/L (98-107) 12/07/16 06:30 Carbon Dioxide 24 mmol/L (22-30) 12/07/16 06:30 Anion Gap 20 mmol/L 12/07/16 06:30 BUN 67 mg/dL (7-17) H 12/07/16 06:30 Creatinine 1.4 mg/dL (0.7-1.2) H 12/07/16 06:30 Estimated GFR 49 ml/min 12/07/16 06:30 BUN/Creatinine Ratio 48 % 12/07/16 06:30 Glucose 126 mg/dL (65-100) H 12/07/16 06:30 POC Glucose 129 (70-105) H 12/07/16 05:34 Osmolality 351 Mosm/kg 09/16/16 11:47 Lactic Acid 4.50 mmol/L (0.7-2.0) H* 09/28/16 07:25 Calcium 9.5 mg/dL (8.4-10.2) 12/07/16 06:30 Phosphorus 3.40 mg/dL (2.5-4.5) D 12/07/16 06:30 Magnesium 1.70 mg/dL (1.7-2.3) 12/07/16 06:30 Total Bilirubin 0.20 mg/dL (0.1-1.2) 12/04/16 04:00 Direct Bilirubin 0.3 mg/dL (0-0.2) H 10/10/16 05:00 Indirect Bilirubin 0.1 mg/dL 10/10/16 05:00 AST 29 units/L (5-40) 12/04/16 04:00 ALT 43 units/L (7-56) 12/04/16 04:00 Alkaline Phosphatase 155 units/L (35-129) H 12/04/16 04:00 Ammonia 27.0 umol/L (25-60) 09/07/16 08:37 Lactate Dehydrogenase 196 units/L (91-180) H 11/11/16 06:59 Total Creatine Kinase 121 units/L (30-135) 09/29/16 20:12 CK-MB (CK-2) < 1.0 ng/mL (0.0-4.0) 09/29/16 20:12 CK-MB (CK-2) Rel Index 0.8 (0-4) 09/29/16 20:12 Troponin T 0.204 ng/mL (0.00-0.029) H* 09/29/16 20:12 C-Reactive Protein 19.30 mg/dL (0.00-1.30) H 12/05/16 05:00 Total Protein 5.5 g/dL (6.3-8.2) L 12/04/16 04:00 Albumin 1.5 g/dL (3.9-5) L 12/04/16 04:00 Albumin/Globulin Ratio 0.4 % 12/04/16 04:00 Prealbumin 0.180 g/L (0.200-0.400) L 11/06/16 06:25 Triglycerides 137 mg/dL (2-149) 09/29/16 20:12 Cholesterol 31 mg/dL (50-199) L 09/29/16 20:12 LDL Cholesterol Direct 4 mg/dL (50-130) L 09/29/16 20:12 HDL Cholesterol 3 mg/dL (40-59) L 09/29/16 20:12 Cholesterol/HDL Ratio 10.33 % 09/29/16 20:12 Angiotensin Convert Enz See scanned report 09/08/16 11:48 Renin 0.99 ng/mL/h (0.25-5.82) 10/07/16 10:56 Aldosterone <1 ng/dL () 10/07/16 10:56 Aldosterone/Renin Dir see below 10/07/16 10:56 Serotonin Release Assay See scanned report 09/29/16 13:35 TSH 1.010 mlU/mL (0.270-4.200) 09/07/16 08:37 HCG, Qual Negative (Negative) 09/03/16 00:10 Urine Color Yellow (Yellow) 11/05/16 13:09 Urine Turbidity Clear (Clear) 11/05/16 13:09 Urine pH 9.0 (5.0-7.0) H 11/05/16 13:09 Ur Specific [place] 1.011 (1.003-1.030) 11/05/16 13:09 Urine Protein 100 mg/dl mg/dL (Negative) 11/05/16 13:09 Urine Glucose (UA) Neg mg/dL (Negative) 11/05/16 13:09 Urine Ketones Neg mg/dL (Negative) 11/05/16 13:09 Urine Blood Neg (Negative) 11/05/16 13:09 Urine Nitrite Neg (Negative) 11/05/16 13:09 Urine Bilirubin Neg (Negative) 11/05/16 13:09 Urine Urobilinogen < 2.0 mg/dL (<2.0) 11/05/16 13:09 Ur Leukocyte Esterase Neg (Negative) 11/05/16 13:09 Urine WBC (Auto) 4.0 /HPF (0.0-6.0) 11/05/16 13:09 Urine RBC (Auto) 1.0 /HPF (0.0-6.0) 11/05/16 13:09 U Epithel Cells (Auto) 1.0 /HPF (0-13.0) 10/07/16 18:30 Urine Bacteria (Auto) 4+ /HPF (Negative) 11/05/16 13:09 Urine WBC Clumps 2+ /HPF 09/07/16 02:47 Hyaline Casts 4 /LPF 09/07/16 02:47 Urine Mucus Few /HPF 10/07/16 18:30 Urine Yeast (Budding) 3+ /HPF 10/07/16 18:30 Urine Eosinophils None seen (None Seen) 09/07/16 16:00 Urine Total Volume 950 11/12/16 10:18 Urine Creatinine 19.7 mg/dL (0.1-20.0) 11/12/16 10:18 Height (in) 65.0 inches 11/12/16 10:18 Weight (lb) 181.0 lbs 11/12/16 10:18 Creatinine Clearance 5 11/12/16 10:18 Urine Sodium 36 mEq/L 09/16/16 19:19 Urine Total Protein 16 mg/dL (5-11.8) H 09/16/16 19:19 Fluid Total Protein < 3.0 (15.0-45.0) L 11/10/16 14:20 Fluid LDH 123 11/10/16 14:20 Vancomycin Trough 2.3 ug/mL (5.0-20.0) L 09/21/16 13:00 Random Vancomycin 16.5 ug/mL (0-40.0) 11/28/16 09:45 Urine Opiates Screen Presumptive negative 09/03/16 15:11 Urine Methadone Screen Presumptive positive 09/03/16 15:11 Ur Barbiturates Screen Presumptive positive 09/03/16 15:11 Ur Phencyclidine Scrn Presumptive negative 09/03/16 15:11 Ur Amphetamines Screen Presumptive negative 09/03/16 15:11 U Benzodiazepines Scrn Presumptive negative 09/03/16 15:11 Urine Cocaine Screen Presumptive negative 09/03/16 15:11 U Marijuana (THC) Screen Presumptive positive 09/03/16 15:11 Drugs of Abuse Note Disclamer 09/03/16 15:11 Rheumatoid Factor 24 IU/ml (0-13) H 09/08/16 11:48 SAHIL Screen Negative (Negative) 09/07/16 09:20 Proteinase 3 (PR3) Ab <1.0 AI (<1.0) 09/07/16 09:20 Myeloperoxidase Ab <1.0 AI (<1.0) 09/07/16 09:20 Sjogren's Antibody <1.0 AI (<1.0) 09/08/16 15:35 Scl-70 Scleroderma Ab <1.0 AI (<1.0) 09/08/16 15:35 Centromere B Antibody <1.0 AI (<1.0) 09/08/16 12:02 Heparin-induced Plt Ab Negative (Negative) 09/29/16 13:35 UF Heparin High Dose 11 % Release 09/29/16 13:35 SUDHIR UFH Low Dose 0.1 6 % Release 09/29/16 13:35 SUDHIR UFH Low Dose 0.5 8 % Release 09/29/16 13:35 Cardiolipid IgG Ab <14 GPL (<=14) 09/12/16 09:59 Cardiolipid IgA Ab <11 APL (<=11) 09/12/16 09:59 Cardiolipid IgM Ab <12 MPL (<=12) 09/12/16 09:59 Complement C3 148 mg/dL (90-180) 09/07/16 09:20 Complement C4 58 mg/dL (16-47) H 09/07/16 09:20 RPR Nonreactive (Nonreactive) 09/08/16 11:48 Hepatitis A IgM Ab Non-reactive (NonReactive) 09/24/16 14:40 Hep Bs Antigen Non-reactive (Negative) 09/24/16 14:40 Hep B Core IgM Ab Non-reactive (NonReactive) 09/24/16 14:40 Hepatitis C Antibody Non-reactive (NonReactive) 09/24/16 14:40 HIV 1&2 Antibody Rapid Non react (Non React) 09/08/16 11:48 HIV P24 Antigen Non react (Non React) 09/08/16 11:48 Miscellaneous Test Flexitest 1 H 11/05/16 13:25 Blood Type A POSITIVE 12/07/16 09:45 Antibody Screen Negative 12/07/16 09:45 DELORIS Antibody Screen Negative 11/24/16 11:20 Crossmatch See Detail 12/07/16 09:45
[2016-12-07] MEDS: DURAGESIC TD SCH (13:00)
[2016-12-07] MEDS ORDERED: TPN ADULT IV SCH (20:00)
[2016-12-07] MEDS ORDERED: INTRALIPID 20% 250 ML IV SCH (20:00)
[2016-12-07] MEDS: IMODIUM PO PRN (21:55)
[2016-12-08] MEDS: LOPRESSOR PO SCH ×5 (00:15→18:37)
[2016-12-08] MEDS: HumuLIN R SUB-Q SCH ×4 (00:16→18:37)
[2016-12-08] MEDS: DUONEB *Not for PRN Use IH SCH ×4 (02:30→20:40)
[2016-12-08] MEDS: APRESOLINE PO SCH ×3 (05:25→21:45)
[2016-12-08] MEDS: LASIX IV SCH ×2 (05:26→18:37)
[2016-12-08 07:50] LABS: Hematocrit 24.3 % (30.3-42.9); Hemoglobin 8.1 gm/dl (10.1-14.3); Mean Corpuscular HGB Conc 33 % (30-34); Mean Corpuscular Hemoglobin 28 pg (28-32); Mean Corpuscular Volume 85 fl (79-97); Platelet Count 335 K/mm3 (140-440); Red Blood Count 2.88 M/mm3 (3.65-5.03); Red Cell Distribution Width 16.7 % (13.2-15.2)
[2016-12-08 08:04] LABS: Calcium 9.2 mg/dL (8.4-10.2)
[2016-12-08 08:29] LABS: Band Neutrophils # (Manual) 1.4 K/mm3; Basophils % (Manual) 0 % (0.0-1.8); Eosinophils % (Manual) 0 % (0.0-4.3); Total Cells Counted 100
[2016-12-08 08:30] LABS: Anisocytosis 1+; Burr Cells Rare; Hypochromasia Few; Ovalocytes 1+
[2016-12-08] MEDS: HEPARIN SUB-Q SCH ×2 (09:12→21:43)
[2016-12-08] MEDS: ROBINUL PO SCH ×2 (09:12→21:44)
[2016-12-08] MEDS: PROTONIX FEEDTUBE SCH (09:12)
[2016-12-08] MEDS: NORVASC PO SCH (09:12)
--- NOTE | 2016-12-08 09:44 | Progress Note ---
Subjective Principal diagnosis: Acute resp failure on MVS; S/P Acute CVA; Acute Encephalopathy; JUANITA Interval history: Patient was seen today for follow-up, on many renal related issues condition remains unchanged, on dialysis Monday and Monday Interdisciplinary notes were reviewed Vitals labs intake and output medications were reviewed from today Allergies: Reviewed Social history: Reviewed Family history: Reviewed Physical examination HEENT: Oral mucosa moist no pharyngeal erythema Neck: Supple no JVD Chest: Clear to auscultation no crackles rales or wheezes Heart: Regular rate and rhythm S1-S2 heard no S3-S4 Abdomen: Soft nontender no renal bruit no CVA tenderness no suprapubic fullness Extremity: Mild edema dry skin no peripheral cyanosis pulses palpable Neurological: uunchanged Musculoskeletal: No joint effusion noted Assessment and plan Acute on chronic renal failure: Patient has not shown any signs of renal recovery currently remains dialysis dependent with her right upper chest permacath currently on TTS schedule Accelerated hypertension and tachycardia to monitor and follow Anemia and renal failure would suggest avoiding erythropoietin due to stroke, packed red blood cell transfusion if hemoglobin is under 7 Leukocytosis patient may require infectious disease evaluation please consider Respiratory failure currently being followed by pulmonary service She is currently depending on total parenteral nutrition Surgery did not recommend replacing the G-tube Persistent vegetative state remains unchanged at this time Overall prognosis appears to be very poor Mortality risk is high Will continue to follow and make recommendation from renal standpoint Objective - Vital Signs Vital signs: Vital Signs - 12hr 12/07/16 12/07/16 12/07/16 21:53 22:00 22:30 Temperature Pulse Rate 101 H 104 H 104 H Pulse Rate [ Bilateral Throughout] Pulse Rate [ From Monitor] Respiratory 25 H 19 Rate Respiratory Rate [Bilateral Throughout] Blood Pressure 119/75 125/86 113/77 O2 Sat by Pulse 100 100 Oximetry 12/07/16 12/07/16 12/07/16 23:00 23:16 23:24 Temperature Pulse Rate 103 H 103 H 103 H Pulse Rate [ Bilateral Throughout] Pulse Rate [ From Monitor] Respiratory 21 20 Rate Respiratory Rate [Bilateral Throughout] Blood Pressure 116/73 113/67 113/67 O2 Sat by Pulse 100 100 100 Oximetry 12/07/16 12/07/16 12/08/16 23:30 23:44 00:00 Temperature 98.7 F Pulse Rate 106 H 102 H Pulse Rate [ Bilateral Throughout] Pulse Rate [ 111 H From Monitor] Respiratory 24 30 H 18 Rate Respiratory Rate [Bilateral Throughout] Blood Pressure 110/77 110/68 O2 Sat by Pulse 100 98 100 Oximetry 12/08/16 12/08/16 12/08/16 00:15 00:30 01:00 Temperature Pulse Rate 103 H 99 H 93 H Pulse Rate [ Bilateral Throughout] Pulse Rate [ From Monitor] Respiratory 21 22 Rate Respiratory Rate [Bilateral Throughout] Blood Pressure 110/68 112/67 109/65 O2 Sat by Pulse 100 100 Oximetry 12/08/16 12/08/16 12/08/16 01:30 02:00 02:30 Temperature Pulse Rate 96 H 99 H 97 H Pulse Rate [ Bilateral Throughout] Pulse Rate [ From Monitor] Respiratory 21 24 21 Rate Respiratory Rate [Bilateral Throughout] Blood Pressure 118/70 118/70 144/84 O2 Sat by Pulse 100 100 100 Oximetry 12/08/16 12/08/16 12/08/16 02:37 02:52 03:00 Temperature Pulse Rate 103 H Pulse Rate [ 99 H 101 H Bilateral Throughout] Pulse Rate [ From Monitor] Respiratory 13 Rate Respiratory 22 22 Rate [Bilateral Throughout] Blood Pressure 141/83 O2 Sat by Pulse 99 Oximetry 12/08/16 12/08/16 12/08/16 03:30 04:00 04:29 Temperature 98.8 F Pulse Rate 103 H 103 H 103 H Pulse Rate [ Bilateral Throughout] Pulse Rate [ 103 H From Monitor] Respiratory 25 H 23 Rate Respiratory Rate [Bilateral Throughout] Blood Pressure 135/84 124/75 130/77 O2 Sat by Pulse 100 95 98 Oximetry 12/08/16 12/08/16 12/08/16 04:30 05:00 05:25 Temperature Pulse Rate 104 H 104 H 103 H Pulse Rate [ Bilateral Throughout] Pulse Rate [ From Monitor] Respiratory 23 22 Rate Respiratory Rate [Bilateral Throughout] Blood Pressure 122/74 126/75 134/80 O2 Sat by Pulse 96 100 Oximetry 12/08/16 12/08/16 12/08/16 05:30 06:00 06:30 Temperature Pulse Rate 103 H 94 H 92 H Pulse Rate [ Bilateral Throughout] Pulse Rate [ From Monitor] Respiratory 21 22 22 Rate Respiratory Rate [Bilateral Throughout] Blood Pressure 117/74 121/78 136/83 O2 Sat by Pulse 100 100 100 Oximetry 12/08/16 12/08/16 12/08/16 07:00 07:30 08:00 Temperature 97.2 F L Pulse Rate 93 H 93 H 94 H Pulse Rate [ Bilateral Throughout] Pulse Rate [ 94 H From Monitor] Respiratory 20 20 18 Rate Respiratory Rate [Bilateral Throughout] Blood Pressure 133/84 124/79 132/81 O2 Sat by Pulse 99 100 100 Oximetry 12/08/16 09:12 Temperature Pulse Rate 93 H Pulse Rate [ Bilateral Throughout] Pulse Rate [ From Monitor] Respiratory Rate Respiratory Rate [Bilateral Throughout] Blood Pressure 130/76 O2 Sat by Pulse Oximetry - Lab 12/08/16 05:30 12/08/16 05:30 Most recent lab results ABG pH 7.450 pH Units (7.350-7.450) 12/05/16 Unknown ABG pCO2 29.6 mm Hg 12/05/16 Unknown ABG pO2 75.2 mm Hg (80.0-90.0) L 12/05/16 Unknown ABG HCO3 20.1 mmol/L (20.0-26.0) 12/05/16 Unknown ABG O2 Saturation 96.8 % (95.0-99.0) 12/05/16 Unknown Calcium 9.2 mg/dL (8.4-10.2) 12/08/16 05:30 Phosphorus 3.10 mg/dL (2.5-4.5) 12/08/16 05:30 Magnesium 1.70 mg/dL (1.7-2.3) 12/08/16 05:30 Urine Creatinine 19.7 mg/dL (0.1-20.0) 11/12/16 10:18 Urine Sodium 36 mEq/L 09/16/16 19:19 Urine Total Protein 16 mg/dL (5-11.8) H 09/16/16 19:19
--- NOTE | 2016-12-08 11:27 | Progress Note ---
Assessment and Plan Assessment and plan: Patient is 46-year-old woman with a history of hypertension, diabetes, asthma, hyperlipidemia, chronic kidney disease and anxiety , who was brought in by family because, she couldn't get her words out, her face was also twisted, she was admitted for acute CVA and accelerated hypertension, she had a hx of poor adherence with her medications, and uncontrolled htn. Patient's SBP on admission was noted be greater than 260. TPA was started but this was discontinued after 5 minutes because her blood pressure became uncontrolled. The TPA was not initiated again because the patient was outside the TPA window. Patient has had a prolonged hospital stay complicated with recurrent severe sepsis. Patient with most recent event also status post cardiac arrest on and received CPR. --Severe Sepsis with septic shock, recurrent. Patient with multiple episodes of sepsis. Initial episode due to presumed aspiration pneumonia and septic episode on 09/23 from candidemia then a third episode from peritonitis from gastric perforation from dislodged PEG +/-UTI. Patient was also noted to have had Candidemia with Blood cultures positive for Silvia albicans 09/23, 09/25 but negative on 09/30. Antibiotic discontinued on 12/05 per ID. patient is s/p R thoracentesis on 11/14, 240cc of serous fluid removed, cx of fluid was negative.also Stool negative for C. difficile --Surgical wound infection/gram-negative sepsis/candidemia/peritonitis. PEG has been removed and pus is drained from the PEG site and patient is Currently on tube feeding. Continue wound care to ostomy sites --Acute hypoxic respiratory failure, status post tracheostomy Continue vent weaning. PSV trials. Pulmonary following --Acute massive CVA with mass effect; continue antiplatelets and statins -Neurology input appreciated CT shows continued evolution of left MCA infarct with slight mass effect and edema, and there is no hemorrhage -PRINCE showed hyperdynamic with ef of 75%, neither clot nor septal defect seen -MRA Brain shows near complete occlusion of M2 and M3 of the left MCA Repeat CT scan done on 09/11, shows stable findings carotid doppler negative -Echo shows preserved systolic function but does show some left ventricular diastolic dysfunction -continue asa and statin --Oliguric acute kidney injury. Etiology secondary to ATN on CKD. Baseline creatinine is approximately 1.7. --Paroxysmal atrial fibrillation with rapid ventricular rate, failed cardioversion Continue current medications, Not a candidate for anticoagulation secondary to anemia thrombocytopenia and massive CVA --Anemia; probably secondary to GI bleeding Patient received multiple units of PRBC in the past, hemoglobin has trended down to 6.8. Type and cross and transfuse 1 unit re-consult GI if needed Recheck Hemoccult stool -Toxic metabolic encephalopathy; supportive care --Diabetes mellitus type 2, Insulin/SSI --Severe protein caloric malnutrition, cont TPN --s/p Thrombocytopenia. Now resolved --DVT prophylaxis, SCDs, no pharmacological agent given anemia , thrombocytopenia, massive stroke --Full code status, very poor prognosis Dispo. Very poor prognosis has been explained by the hospitalist group and the stranding machine operator helper but the family currently refusing hospice evaluation. The family would like to continue aggressive care. The high probability of a clinically significant, sudden or life threatening deterioration of the [respiratory, GI, immunological and cardiovascular] system( s) required my full and direct attention, intervention and personal management. The aggregate critical care time was [31] minutes. This time is in addition to time spent performing reported procedures but includes the following: [x] Data Review and interpretation [x] Patient assessment and monitoring of vital signs [x] Documentation [x] Medication orders and management History Interval history: No new issues overnight. Hospitalist Physical - Constitutional Vitals: Temp Pulse Resp BP Pulse Ox 98.1 F 108 H 19 112/70 98 12/08/16 10:15 12/08/16 11:16 12/08/16 10:15 12/08/16 11:16 12/08/16 10:12 General appearance: Present: no acute distress - EENT Eyes: Present: PERRL, EOM intact ENT: hearing intact, clear oral mucosa, dentition normal - Neck Neck: Present: supple, normal ROM - Respiratory Respiratory effort: normal Respiratory: bilateral: CTA - Cardiovascular Rhythm: regular Heart Sounds: Present: S1 & S2. Absent: gallop, rub - Extremities Extremities: no ischemia, No edema, Full ROM - Abdominal General gastrointestinal: soft, non-tender, non-distended, normal bowel sounds - Integumentary Integumentary: Present: clear, warm, dry - Neurologic Neurologic: CNII-XII intact, moves all extremities Results - Labs CBC & Chem 7: 12/08/16 05:30 12/08/16 05:30 Labs: Laboratory Last Values WBC 23.8 K/mm3 (4.5-11.0) H 12/08/16 05:30 RBC 2.88 M/mm3 (3.65-5.03) L 12/08/16 05:30 Hgb 8.1 gm/dl (10.1-14.3) L 12/08/16 05:30 Hct 24.3 % (30.3-42.9) L 12/08/16 05:30 MCV 85 fl (79-97) 12/08/16 05:30 MCH 28 pg (28-32) 12/08/16 05:30 MCHC 33 % (30-34) 12/08/16 05:30 RDW 16.7 % (13.2-15.2) H 12/08/16 05:30 Plt Count 335 K/mm3 (140-440) 12/08/16 05:30 Lymph % (Auto) 17.7 % (13.4-35.0) 12/07/16 06:30 [place] % (Auto) 9.9 % (0.0-7.3) H 12/07/16 06:30 Eos % (Auto) 0.4 % (0.0-4.3) 12/07/16 06:30 Baso % (Auto) 0.2 % (0.0-1.8) 12/07/16 06:30 Lymph # 3.3 K/mm3 (1.2-5.4) 12/07/16 06:30 [place] # 1.9 K/mm3 (0.0-0.8) H 12/07/16 06:30 Eos # 0.1 K/mm3 (0.0-0.4) 12/07/16 06:30 Baso # 0.0 K/mm3 (0.0-0.1) 12/07/16 06:30 Add Manual Diff Complete 12/08/16 05:30 Total Counted 100 12/08/16 05:30 Seg Neutrophils % 71.8 % (40.0-70.0) H 12/07/16 06:30 Seg Neuts % (Manual) 76.0 % (40.0-70.0) H 12/08/16 05:30 Band Neutrophils % 6.0 % 12/08/16 05:30 Lymphocytes % (Manual) 9.0 % (13.4-35.0) L 12/08/16 05:30 Reactive Lymphs % (Man) 0 % 12/08/16 05:30 Monocytes % (Manual) 9.0 % (0.0-7.3) H 12/08/16 05:30 Eosinophils % (Manual) 0 % (0.0-4.3) 12/08/16 05:30 Basophils % (Manual) 0 % (0.0-1.8) 12/08/16 05:30 Metamyelocytes % 0 % 12/08/16 05:30 Myelocytes % 0 % 12/08/16 05:30 Promyelocytes % 0 % 12/08/16 05:30 Blast Cells % 0 % 12/08/16 05:30 Nucleated RBC % Not Reportable 12/08/16 05:30 Seg Neutrophils # 13.5 K/mm3 (1.8-7.7) H 12/07/16 06:30 Seg Neutrophils # Man 18.1 K/mm3 (1.8-7.7) H 12/08/16 05:30 Band Neutrophils # 1.4 K/mm3 12/08/16 05:30 Lymphocytes # (Manual) 2.1 K/mm3 (1.2-5.4) 12/08/16 05:30 Abs React Lymphs (Man) 0.0 K/mm3 12/08/16 05:30 Monocytes # (Manual) 2.1 K/mm3 (0.0-0.8) H 12/08/16 05:30 Eosinophils # (Manual) 0.0 K/mm3 (0.0-0.4) 12/08/16 05:30 Basophils # (Manual) 0.0 K/mm3 (0.0-0.1) 12/08/16 05:30 Metamyelocytes # 0.0 K/mm3 12/08/16 05:30 Myelocytes # 0.0 K/mm3 12/08/16 05:30 Promyelocytes # 0.0 K/mm3 12/08/16 05:30 Blast Cells # 0.0 K/mm3 12/08/16 05:30 Pathologist Review 09/13/16 04:00 WBC Morphology Not Reportable 12/08/16 05:30 Hypersegmented Neuts Not Reportable 12/08/16 05:30 Hyposegmented Neuts Not Reportable 12/08/16 05:30 Hypogranular Neuts Not Reportable 12/08/16 05:30 Smudge Cells Not Reportable 12/08/16 05:30 Toxic Granulation Not Reportable 12/08/16 05:30 Toxic Vacuolation Not Reportable 12/08/16 05:30 Dohle Bodies Not Reportable 12/08/16 05:30 Pelger-Huet Anomaly Not Reportable 12/08/16 05:30 Jasmina Rods Not Reportable 12/08/16 05:30 Platelet Estimate Appears normal 12/08/16 05:30 Clumped Platelets Not Reportable 12/08/16 05:30 Plt Clumps, EDTA Not Reportable 12/08/16 05:30 Large Platelets Not Reportable 12/08/16 05:30 Giant Platelets Not Reportable 12/08/16 05:30 Platelet Satelliting Not Reportable 12/08/16 05:30 Plt Morphology Comment Not Reportable 12/08/16 05:30 RBC Morphology Not Reportable 12/08/16 05:30 Dimorphic RBCs Not Reportable 12/08/16 05:30 Polychromasia Not Reportable 12/08/16 05:30 Hypochromasia Few 12/08/16 05:30 Poikilocytosis Not Reportable 12/08/16 05:30 Anisocytosis 1+ 12/08/16 05:30 Microcytosis Few 12/08/16 05:30 Macrocytosis Not Reportable 12/08/16 05:30 Spherocytes Not Reportable 12/08/16 05:30 Pappenheimer Bodies Not Reportable 12/08/16 05:30 Sickle Cells Not Reportable 12/08/16 05:30 Target Cells Not Reportable 12/08/16 05:30 Tear Drop Cells Not Reportable 12/08/16 05:30 Ovalocytes 1+ 12/08/16 05:30 Stomatocytes Rare 12/03/16 04:00 Helmet Cells Not Reportable 12/08/16 05:30 Monet-[place] Bodies Not Reportable 12/08/16 05:30 [place] Rings Not Reportable 12/08/16 05:30 [place] Cells Rare 12/08/16 05:30 Bite Cells Not Reportable 12/08/16 05:30 Crenated Cell Not Reportable 12/08/16 05:30 Elliptocytes Not Reportable 12/08/16 05:30 Acanthocytes (Spur) Not Reportable 12/08/16 05:30 Rouleaux Not Reportable 12/08/16 05:30 Hemoglobin C Crystals Not Reportable 12/08/16 05:30 Schistocytes Not Reportable 12/08/16 05:30 Malaria parasites Not Reportable 12/08/16 05:30 ESR > 140.0 mm/Hr (0-20) 09/08/16 11:48 Jun Bodies Not Reportable 12/08/16 05:30 Hem Pathologist Commnt No 12/08/16 05:30 PT 16.8 Sec. (12.2-14.9) H 11/17/16 03:20 INR 1.37 (0.87-1.13) H 11/17/16 03:20 APTT 33.0 Sec. (24.2-36.6) 10/09/16 03:45 Thrombin Time 16.8 Sec. (15.1-19.6) 09/03/16 00:10 Fibrinogen 750 mg/dl (211-480) H 09/08/16 11:48 Lupus Anticoagulant see below 09/12/16 09:59 LA PTT Baseline See scanned report 09/12/16 09:59 dRVVT Confirm Interp Positive (Negative) H 09/12/16 09:59 dRVVT Screen 50:50 See scanned report 09/12/16 09:59 dRVVT Mix Interpret See scanned report 09/12/16 09:59 Protein C Antigen 122 % (70-140) 09/08/16 15:35 Free Protein S 97 % normal (50-147) 09/08/16 15:35 Total Protein S 109 % (70-140) 09/08/16 15:35 Antithrombin III Ag 100 % (80-120) 09/08/16 15:35 Heparin Anti-Xa, Unfract Negative (Negative) 09/29/16 13:35 Factor V Activity 182 % (65-150) H 09/08/16 15:35 POC ABG pH 7.487 (7.35-7.45) H 11/25/16 14:12 ABG pH 7.450 pH Units (7.350-7.450) 12/05/16 Unknown POC ABG pCO2 39.0 (35-45) 11/25/16 14:12 ABG pCO2 29.6 mm Hg 12/05/16 Unknown POC ABG pO2 153 (80-105) H 11/25/16 14:12 ABG pO2 75.2 mm Hg (80.0-90.0) L 12/05/16 Unknown POC ABG HCO3 29.5 11/25/16 14:12 ABG HCO3 20.1 mmol/L (20.0-26.0) 12/05/16 Unknown POC ABG Total CO2 31 11/25/16 14:12 POC ABG O2 Sat 99 11/25/16 14:12 ABG O2 Saturation 96.8 % (95.0-99.0) 12/05/16 Unknown ABG O2 Content 9.9 (0.0-44) 12/05/16 Unknown POC ABG Base Excess 6 11/25/16 14:12 ABG Base Excess -3.4 mmol/L (-2.0-3.0) L 12/05/16 Unknown ABG Hemoglobin 7.4 gm/dl (12.0-16.0) L 12/05/16 Unknown ABG Carboxyhemoglobin 1.8 % (0.0-5.0) 12/05/16 Unknown ABG Methemoglobin 0.6 % (0.0-1.5) 12/05/16 Unknown Oxyhemoglobin 94.5 % (95.0-99.0) L 12/05/16 Unknown FiO2 30 % 12/05/16 Unknown Sodium 140 mmol/L (137-145) 12/08/16 05:30 Potassium 3.7 mmol/L (3.6-5.0) 12/08/16 05:30 Chloride 100.4 mmol/L (98-107) 12/08/16 05:30 Carbon Dioxide 21 mmol/L (22-30) L 12/08/16 05:30 Anion Gap 22 mmol/L 12/08/16 05:30 BUN 76 mg/dL (7-17) H 12/08/16 05:30 Creatinine 1.6 mg/dL (0.7-1.2) H 12/08/16 05:30 Estimated GFR 42 ml/min 12/08/16 05:30 BUN/Creatinine Ratio 48 % 12/08/16 05:30 Glucose 133 mg/dL (65-100) H 12/08/16 05:30 POC Glucose 177 (70-105) H 12/08/16 05:25 Osmolality 351 Mosm/kg 09/16/16 11:47 Lactic Acid 4.50 mmol/L (0.7-2.0) H* 09/28/16 07:25 Calcium 9.2 mg/dL (8.4-10.2) 12/08/16 05:30 Phosphorus 3.10 mg/dL (2.5-4.5) 12/08/16 05:30 Magnesium 1.70 mg/dL (1.7-2.3) 12/08/16 05:30 Total Bilirubin 0.20 mg/dL (0.1-1.2) 12/04/16 04:00 Direct Bilirubin 0.3 mg/dL (0-0.2) H 10/10/16 05:00 Indirect Bilirubin 0.1 mg/dL 10/10/16 05:00 AST 29 units/L (5-40) 12/04/16 04:00 ALT 43 units/L (7-56) 12/04/16 04:00 Alkaline Phosphatase 155 units/L (35-129) H 12/04/16 04:00 Ammonia 27.0 umol/L (25-60) 09/07/16 08:37 Lactate Dehydrogenase 196 units/L (91-180) H 11/11/16 06:59 Total Creatine Kinase 121 units/L (30-135) 09/29/16 20:12 CK-MB (CK-2) < 1.0 ng/mL (0.0-4.0) 09/29/16 20:12 CK-MB (CK-2) Rel Index 0.8 (0-4) 09/29/16 20:12 Troponin T 0.204 ng/mL (0.00-0.029) H* 09/29/16 20:12 C-Reactive Protein 19.30 mg/dL (0.00-1.30) H 12/05/16 05:00 Total Protein 5.5 g/dL (6.3-8.2) L 12/04/16 04:00 Albumin 1.5 g/dL (3.9-5) L 12/04/16 04:00 Albumin/Globulin Ratio 0.4 % 12/04/16 04:00 Prealbumin 0.180 g/L (0.200-0.400) L 11/06/16 06:25 Triglycerides 137 mg/dL (2-149) 09/29/16 20:12 Cholesterol 31 mg/dL (50-199) L 09/29/16 20:12 LDL Cholesterol Direct 4 mg/dL (50-130) L 09/29/16 20:12 HDL Cholesterol 3 mg/dL (40-59) L 09/29/16 20:12 Cholesterol/HDL Ratio 10.33 % 09/29/16 20:12 Angiotensin Convert Enz See scanned report 09/08/16 11:48 Renin 0.99 ng/mL/h (0.25-5.82) 10/07/16 10:56 Aldosterone <1 ng/dL () 10/07/16 10:56 Aldosterone/Renin Dir see below 10/07/16 10:56 Serotonin Release Assay See scanned report 09/29/16 13:35 TSH 1.010 mlU/mL (0.270-4.200) 09/07/16 08:37 HCG, Qual Negative (Negative) 09/03/16 00:10 Urine Color Yellow (Yellow) 11/05/16 13:09 Urine Turbidity Clear (Clear) 11/05/16 13:09 Urine pH 9.0 (5.0-7.0) H 11/05/16 13:09 Ur Specific [place] 1.011 (1.003-1.030) 11/05/16 13:09 Urine Protein 100 mg/dl mg/dL (Negative) 11/05/16 13:09 Urine Glucose (UA) Neg mg/dL (Negative) 11/05/16 13:09 Urine Ketones Neg mg/dL (Negative) 11/05/16 13:09 Urine Blood Neg (Negative) 11/05/16 13:09 Urine Nitrite Neg (Negative) 11/05/16 13:09 Urine Bilirubin Neg (Negative) 11/05/16 13:09 Urine Urobilinogen < 2.0 mg/dL (<2.0) 11/05/16 13:09 Ur Leukocyte Esterase Neg (Negative) 11/05/16 13:09 Urine WBC (Auto) 4.0 /HPF (0.0-6.0) 11/05/16 13:09 Urine RBC (Auto) 1.0 /HPF (0.0-6.0) 11/05/16 13:09 U Epithel Cells (Auto) 1.0 /HPF (0-13.0) 10/07/16 18:30 Urine Bacteria (Auto) 4+ /HPF (Negative) 11/05/16 13:09 Urine WBC Clumps 2+ /HPF 09/07/16 02:47 Hyaline Casts 4 /LPF 09/07/16 02:47 Urine Mucus Few /HPF 10/07/16 18:30 Urine Yeast (Budding) 3+ /HPF 10/07/16 18:30 Urine Eosinophils None seen (None Seen) 09/07/16 16:00 Urine Total Volume 950 11/12/16 10:18 Urine Creatinine 19.7 mg/dL (0.1-20.0) 11/12/16 10:18 Height (in) 65.0 inches 11/12/16 10:18 Weight (lb) 181.0 lbs 11/12/16 10:18 Creatinine Clearance 5 11/12/16 10:18 Urine Sodium 36 mEq/L 09/16/16 19:19 Urine Total Protein 16 mg/dL (5-11.8) H 09/16/16 19:19 Fluid Total Protein < 3.0 (15.0-45.0) L 11/10/16 14:20 Fluid LDH 123 11/10/16 14:20 Vancomycin Trough 2.3 ug/mL (5.0-20.0) L 09/21/16 13:00 Random Vancomycin 16.5 ug/mL (0-40.0) 11/28/16 09:45 Urine Opiates Screen Presumptive negative 09/03/16 15:11 Urine Methadone Screen Presumptive positive 09/03/16 15:11 Ur Barbiturates Screen Presumptive positive 09/03/16 15:11 Ur Phencyclidine Scrn Presumptive negative 09/03/16 15:11 Ur Amphetamines Screen Presumptive negative 09/03/16 15:11 U Benzodiazepines Scrn Presumptive negative 09/03/16 15:11 Urine Cocaine Screen Presumptive negative 09/03/16 15:11 U Marijuana (THC) Screen Presumptive positive 09/03/16 15:11 Drugs of Abuse Note Disclamer 09/03/16 15:11 Rheumatoid Factor 24 IU/ml (0-13) H 09/08/16 11:48 SAHIL Screen Negative (Negative) 09/07/16 09:20 Proteinase 3 (PR3) Ab <1.0 AI (<1.0) 09/07/16 09:20 Myeloperoxidase Ab <1.0 AI (<1.0) 09/07/16 09:20 Sjogren's Antibody <1.0 AI (<1.0) 09/08/16 15:35 Scl-70 Scleroderma Ab <1.0 AI (<1.0) 09/08/16 15:35 Centromere B Antibody <1.0 AI (<1.0) 09/08/16 12:02 Heparin-induced Plt Ab Negative (Negative) 09/29/16 13:35 UF Heparin High Dose 11 % Release 09/29/16 13:35 SUDHIR UFH Low Dose 0.1 6 % Release 09/29/16 13:35 SUDHIR UFH Low Dose 0.5 8 % Release 09/29/16 13:35 Cardiolipid IgG Ab <14 GPL (<=14) 09/12/16 09:59 Cardiolipid IgA Ab <11 APL (<=11) 09/12/16 09:59 Cardiolipid IgM Ab <12 MPL (<=12) 09/12/16 09:59 Complement C3 148 mg/dL (90-180) 09/07/16 09:20 Complement C4 58 mg/dL (16-47) H 09/07/16 09:20 RPR Nonreactive (Nonreactive) 09/08/16 11:48 Hepatitis A IgM Ab Non-reactive (NonReactive) 09/24/16 14:40 Hep Bs Antigen Non-reactive (Negative) 09/24/16 14:40 Hep B Core IgM Ab Non-reactive (NonReactive) 09/24/16 14:40 Hepatitis C Antibody Non-reactive (NonReactive) 09/24/16 14:40 HIV 1&2 Antibody Rapid Non react (Non React) 09/08/16 11:48 HIV P24 Antigen Non react (Non React) 09/08/16 11:48 Miscellaneous Test Flexitest 1 H 11/05/16 13:25 Blood Type A POSITIVE 12/07/16 09:45 Antibody Screen Negative 12/07/16 09:45 DELORIS Antibody Screen Negative 11/24/16 11:20 Crossmatch See Detail 12/07/16 09:45
[2016-12-08] MEDS: TRANSDERM-SCOP TD SCH (13:39)
[2016-12-08] MEDS: HEPARIN IV PRN (13:47)
--- NOTE | 2016-12-08 18:32 | Progress Note ---
Assessment and Plan Acute Hypoxemic Respiratory Failure (now with exacerbation and back on MVS) Hypertension (unable to receive p.o. 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 and get back to us this next week) - s/p 1 unit PRBC yesterday with appropriate rise in Hb - will rest on AC overnight as breathing in the low 30's at time of my exam - leucocytosis noted without fevers; will follow clinically and off AB's for now - prn CRP - keep on with daily PSV trials and / or T-piece as tolerated (repeat trial each shift if failed earlier shift) - continue TPN administration (continue TPN; NPO except for meds) - continue scopolamine for secretion control (will add robinul due to increasing oropharyngeal secretions) - continue to wean FiO2 for sats > 94% - continue bronchodilators and pulmonary toilet - VAP bundle addressed - continue prn IV metorolol - continue AB's (Vancomycin) till stop date per ID recs - continue metoprolol and amlodipine (rate control better) - continue HD/UF per nephrology - continue to follow electrolytes and correct as necessary - continue GI & VTE prophylaxis - Continue flu & pneumovax per protocol ... she remains critically ill on life sustaining interventions including MVS and at risk for further deterioration including ....30' CCT today without overlap Subjective Date of service: 12/08/16 Principal diagnosis: Acute resp failure on MVS; S/P Acute CVA; Acute Encephalopathy; JUANITA Interval history: Patient is seen today for: Acute resp failure on MVS; S/P Acute CVA; Acute Encephalopathy; JUANITA Seen and examined at bedside; 24hour events reviewed; nursing and respiratory care staff consulted; no adverse overnight events reported to me; tolerating PSV ventilation today but at Psupp of [id number]; AMs is persistent; no seizures; eyes open; No Emesis or overt aspiration and no gross bleeding Objective Vital Signs - 12hr 12/08/16 12/08/16 12/08/16 07:00 07:30 08:00 Temperature 97.2 F L Pulse Rate 93 H 93 H 94 H Pulse Rate [ Bilateral Throughout] Pulse Rate [ 94 H From Monitor] Respiratory 20 20 18 Rate Respiratory Rate [Bilateral Throughout] Blood Pressure 133/84 124/79 132/81 O2 Sat by Pulse 99 100 100 Oximetry O2 Sat by Pulse Oximetry [ Assessment] 12/08/16 12/08/16 12/08/16 08:30 09:00 09:12 Temperature Pulse Rate 94 H 93 H 93 H Pulse Rate [ Bilateral Throughout] Pulse Rate [ From Monitor] Respiratory 22 14 Rate Respiratory Rate [Bilateral Throughout] Blood Pressure 126/80 130/76 130/76 O2 Sat by Pulse 100 100 Oximetry O2 Sat by Pulse Oximetry [ Assessment] 12/08/16 12/08/16 12/08/16 09:30 09:35 09:42 Temperature Pulse Rate 96 H 93 H Pulse Rate [ 93 H Bilateral Throughout] Pulse Rate [ From Monitor] Respiratory 16 17 Rate Respiratory 20 Rate [Bilateral Throughout] Blood Pressure 138/84 138/88 O2 Sat by Pulse 100 100 Oximetry O2 Sat by Pulse Oximetry [ Assessment] 12/08/16 12/08/16 12/08/16 09:50 10:00 10:12 Temperature Pulse Rate 101 H Pulse Rate [ 96 H Bilateral Throughout] Pulse Rate [ From Monitor] Respiratory 22 Rate Respiratory 22 Rate [Bilateral Throughout] Blood Pressure 140/91 O2 Sat by Pulse 100 Oximetry O2 Sat by Pulse 98 Oximetry [ Assessment] 12/08/16 12/08/16 12/08/16 10:15 10:30 10:45 Temperature 98.1 F Pulse Rate 104 H 103 H 104 H Pulse Rate [ Bilateral Throughout] Pulse Rate [ From Monitor] Respiratory 19 25 H Rate Respiratory Rate [Bilateral Throughout] Blood Pressure 131/84 124/76 114/69 O2 Sat by Pulse 99 Oximetry O2 Sat by Pulse Oximetry [ Assessment] 12/08/16 12/08/16 12/08/16 11:00 11:02 11:16 Temperature Pulse Rate 106 H 107 H 108 H Pulse Rate [ Bilateral Throughout] Pulse Rate [ From Monitor] Respiratory 20 Rate Respiratory Rate [Bilateral Throughout] Blood Pressure 113/70 113/70 112/70 O2 Sat by Pulse 98 Oximetry O2 Sat by Pulse Oximetry [ Assessment] 12/08/16 12/08/16 12/08/16 11:30 11:32 11:46 Temperature Pulse Rate 108 H 109 H 108 H Pulse Rate [ Bilateral Throughout] Pulse Rate [ From Monitor] Respiratory 22 Rate Respiratory Rate [Bilateral Throughout] Blood Pressure 108/63 108/63 108/61 O2 Sat by Pulse 99 Oximetry O2 Sat by Pulse Oximetry [ Assessment] 12/08/16 12/08/16 12/08/16 12:00 12:03 12:15 Temperature 97.6 F Pulse Rate 110 H 110 H 106 H Pulse Rate [ Bilateral Throughout] Pulse Rate [ 110 H From Monitor] Respiratory 30 H Rate Respiratory Rate [Bilateral Throughout] Blood Pressure 108/66 108/66 112/70 O2 Sat by Pulse 99 Oximetry O2 Sat by Pulse Oximetry [ Assessment] 12/08/16 12/08/16 12/08/16 12:27 12:30 12:31 Temperature Pulse Rate 112 H 114 H 113 H Pulse Rate [ Bilateral Throughout] Pulse Rate [ From Monitor] Respiratory 28 H Rate Respiratory Rate [Bilateral Throughout] Blood Pressure 110/66 111/66 111/66 O2 Sat by Pulse 100 Oximetry O2 Sat by Pulse Oximetry [ Assessment] 12/08/16 12/08/16 12/08/16 12:45 13:00 13:03 Temperature Pulse Rate 113 H 113 H 113 H Pulse Rate [ Bilateral Throughout] Pulse Rate [ From Monitor] Respiratory 27 H Rate Respiratory Rate [Bilateral Throughout] Blood Pressure 109/66 108/69 108/69 O2 Sat by Pulse 100 Oximetry O2 Sat by Pulse Oximetry [ Assessment] 12/08/16 12/08/16 12/08/16 13:17 13:30 13:31 Temperature Pulse Rate 115 H 116 H 116 H Pulse Rate [ Bilateral Throughout] Pulse Rate [ From Monitor] Respiratory 28 H Rate Respiratory Rate [Bilateral Throughout] Blood Pressure 116/74 119/69 119/69 O2 Sat by Pulse 99 Oximetry O2 Sat by Pulse Oximetry [ Assessment] 12/08/16 12/08/16 12/08/16 13:47 13:59 14:00 Temperature Pulse Rate 117 H 114 H 112 H Pulse Rate [ 112 H Bilateral Throughout] Pulse Rate [ From Monitor] Respiratory 18 Rate Respiratory 25 H Rate [Bilateral Throughout] Blood Pressure 113/72 133/72 119/71 O2 Sat by Pulse 99 Oximetry O2 Sat by Pulse Oximetry [ Assessment] 12/08/16 12/08/16 12/08/16 14:01 14:09 14:14 Temperature 97.7 F Pulse Rate 112 H 112 H Pulse Rate [ 112 H Bilateral Throughout] Pulse Rate [ From Monitor] Respiratory 20 Rate Respiratory 26 H Rate [Bilateral Throughout] Blood Pressure 119/71 119/71 O2 Sat by Pulse Oximetry O2 Sat by Pulse Oximetry [ Assessment] 12/08/16 12/08/16 12/08/16 14:15 14:22 14:30 Temperature Pulse Rate 111 H 111 H 111 H Pulse Rate [ Bilateral Throughout] Pulse Rate [ From Monitor] Respiratory 26 H 21 Rate Respiratory Rate [Bilateral Throughout] Blood Pressure 128/77 128/77 120/71 O2 Sat by Pulse 100 99 Oximetry O2 Sat by Pulse Oximetry [ Assessment] 12/08/16 12/08/16 15:00 15:30 Temperature Pulse Rate 98 H 93 H Pulse Rate [ Bilateral Throughout] Pulse Rate [ From Monitor] Respiratory 19 22 Rate Respiratory Rate [Bilateral Throughout] Blood Pressure 104/65 101/66 O2 Sat by Pulse 100 100 Oximetry O2 Sat by Pulse Oximetry [ Assessment] Constitutional: appears uncomfortable, other (not tracking) Eyes: non-icteric, other (tracheostomy tube in midline of neck) ENT: oropharynx moist, oropharyngeal exudate pre Neck: supple, no lymphadenopathy, no JVD, other (no thyromegaly) Effort: mildly labored Ascultation: Left: diminished breath sounds (base), Bilateral: rhonchi (and referred upper airway sounds) Cardiovascular: regular rate and rhythm, other (no rubs / murmurs) Gastrointestinal: hypoactive bowel sounds, soft, non-tender, non-distended, other (RLQ & LUQ stomas with colostomy bags) Integumentary: other (no rash; no cellulitis; poor turgor) Extremities: no cyanosis, pulses normal, no ischemia or petechiae, edema (1+ bilaterally) Neurologic: pupils equal and round, unable to assess, other (encephalopathic) Psychiatric: other (unable to assess) CBC and BMP: 12/09/16 06:00 12/09/16 06:00 ABG, PT/INR, D-dimer: ABG POC ABG pH 7.487 (7.35-7.45) H 11/25/16 14:12 ABG pH 7.450 pH Units (7.350-7.450) 12/05/16 Unknown POC ABG pCO2 39.0 (35-45) 11/25/16 14:12 ABG pCO2 29.6 mm Hg 12/05/16 Unknown POC ABG pO2 153 (80-105) H 11/25/16 14:12 ABG pO2 75.2 mm Hg (80.0-90.0) L 12/05/16 Unknown POC ABG HCO3 29.5 11/25/16 14:12 POC ABG Total CO2 31 11/25/16 14:12 POC ABG O2 Sat 99 11/25/16 14:12 ABG O2 Saturation 96.8 % (95.0-99.0) 12/05/16 Unknown PT/INR, D-dimer PT 16.8 Sec. (12.2-14.9) H 11/17/16 03:20 INR 1.37 (0.87-1.13) H 11/17/16 03:20 Abnormal lab findings: Abnormal Labs 09/03/16 09/03/16 09/03/16 12:12 15:07 16:20 WBC RBC Hgb Hct MCV MCH MCHC RDW Plt Count Lymph % (Auto) [place] % (Auto) Lymph # [place] # Baso # Seg Neutrophils % Seg Neuts % (Manual) Lymphocytes % (Manual) Monocytes % (Manual) Eosinophils % (Manual) Basophils % (Manual) Nucleated RBC % Seg Neutrophils # Seg Neutrophils # Man Lymphocytes # (Manual) Monocytes # (Manual) Eosinophils # (Manual) PT INR Fibrinogen dRVVT Confirm Interp Factor V Activity POC ABG pH 7.452 H POC ABG pCO2 POC ABG pO2 ABG pO2 ABG HCO3 ABG Base Excess ABG Hemoglobin Oxyhemoglobin Sodium Potassium Chloride Carbon Dioxide BUN Creatinine Glucose POC Glucose 178 H Lactic Acid Calcium Phosphorus 2.20 L Magnesium 1.60 L Direct Bilirubin AST ALT Alkaline Phosphatase Lactate Dehydrogenase Troponin T C-Reactive Protein Total Protein Albumin Prealbumin Triglycerides Cholesterol LDL Cholesterol Direct HDL Cholesterol Urine pH Urine WBC (Auto) Urine Creatinine Urine Total Protein Fluid Total Protein Vancomycin Trough Rheumatoid Factor Complement C4 Miscellaneous Test Crossmatch 09/03/16 09/03/16 09/03/16 17:57 17:58 23:50 WBC RBC Hgb Hct MCV MCH MCHC RDW Plt Count Lymph % (Auto) [place] % (Auto) Lymph # [place] # Baso # Seg Neutrophils % Seg Neuts % (Manual) Lymphocytes % (Manual) Monocytes % (Manual) Eosinophils % (Manual) Basophils % (Manual) Nucleated RBC % Seg Neutrophils # Seg Neutrophils # Man Lymphocytes # (Manual) Monocytes # (Manual) Eosinophils # (Manual) PT INR Fibrinogen dRVVT Confirm Interp Factor V Activity POC ABG pH POC ABG pCO2 POC ABG pO2 ABG pO2 ABG HCO3 ABG Base Excess ABG Hemoglobin Oxyhemoglobin Sodium Potassium Chloride Carbon Dioxide BUN Creatinine Glucose POC Glucose 162 H 145 H Lactic Acid Calcium Phosphorus 2.30 L Magnesium Direct Bilirubin AST ALT Alkaline Phosphatase Lactate Dehydrogenase Troponin T C-Reactive Protein Total Protein Albumin Prealbumin Triglycerides Cholesterol LDL Cholesterol Direct HDL Cholesterol Urine pH Urine WBC (Auto) Urine Creatinine Urine Total Protein Fluid Total Protein Vancomycin Trough Rheumatoid Factor Complement C4 Miscellaneous Test Crossmatch 09/04/16 09/04/16 09/04/16 03:31 03:31 05:42 WBC RBC Hgb 9.7 L D Hct MCV 72 L MCH 23 L MCHC RDW 17.5 H Plt Count Lymph % (Auto) 11.1 L [place] % (Auto) Lymph # [place] # Baso # Seg Neutrophils % 84.3 H Seg Neuts % (Manual) Lymphocytes % (Manual) Monocytes % (Manual) Eosinophils % (Manual) Basophils % (Manual) Nucleated RBC % Seg Neutrophils # 8.9 H Seg Neutrophils # Man Lymphocytes # (Manual) Monocytes # (Manual) Eosinophils # (Manual) PT INR Fibrinogen dRVVT Confirm Interp Factor V Activity POC ABG pH POC ABG pCO2 POC ABG pO2 ABG pO2 ABG HCO3 ABG Base Excess ABG Hemoglobin Oxyhemoglobin Sodium 135 L Potassium 2.9 L* Chloride 97.2 L Carbon Dioxide 19 L BUN Creatinine 1.7 H Glucose 170 H POC Glucose 152 H Lactic Acid Calcium Phosphorus Magnesium Direct Bilirubin AST ALT Alkaline Phosphatase Lactate Dehydrogenase Troponin T C-Reactive Protein Total Protein Albumin Prealbumin Triglycerides 160 H Cholesterol LDL Cholesterol Direct HDL Cholesterol 31 L Urine pH Urine WBC (Auto) Urine Creatinine Urine Total Protein Fluid Total Protein Vancomycin Trough Rheumatoid Factor Complement C4 Miscellaneous Test Crossmatch 09/04/16 09/04/16 09/04/16 11:34 17:46 23:29 WBC RBC Hgb Hct MCV MCH MCHC RDW Plt Count Lymph % (Auto) [place] % (Auto) Lymph # [place] # Baso # Seg Neutrophils % Seg Neuts % (Manual) Lymphocytes % (Manual) Monocytes % (Manual) Eosinophils % (Manual) Basophils % (Manual) Nucleated RBC % Seg Neutrophils # Seg Neutrophils # Man Lymphocytes # (Manual) Monocytes # (Manual) Eosinophils # (Manual) PT INR Fibrinogen dRVVT Confirm Interp Factor V Activity POC ABG pH POC ABG pCO2 POC ABG pO2 ABG pO2 ABG HCO3 ABG Base Excess ABG Hemoglobin Oxyhemoglobin Sodium Potassium Chloride Carbon Dioxide BUN Creatinine Glucose POC Glucose 165 H 210 H 139 H Lactic Acid Calcium Phosphorus Magnesium Direct Bilirubin AST ALT Alkaline Phosphatase Lactate Dehydrogenase Troponin T C-Reactive Protein Total Protein Albumin Prealbumin Triglycerides Cholesterol LDL Cholesterol Direct HDL Cholesterol Urine pH Urine WBC (Auto) Urine Creatinine Urine Total Protein Fluid Total Protein Vancomycin Trough Rheumatoid Factor Complement C4 Miscellaneous Test Crossmatch 09/05/16 09/05/16 09/05/16 04:05 04:05 05:38 WBC RBC Hgb Hct MCV 76 L D MCH 23 L MCHC RDW 17.8 H Plt Count Lymph % (Auto) [place] % (Auto) Lymph # [place] # Baso # Seg Neutrophils % Seg Neuts % (Manual) Lymphocytes % (Manual) Monocytes % (Manual) Eosinophils % (Manual) Basophils % (Manual) Nucleated RBC % Seg Neutrophils # Seg Neutrophils # Man Lymphocytes # (Manual) Monocytes # (Manual) Eosinophils # (Manual) PT INR Fibrinogen dRVVT Confirm Interp Factor V Activity POC ABG pH POC ABG pCO2 POC ABG pO2 ABG pO2 ABG HCO3 ABG Base Excess ABG Hemoglobin Oxyhemoglobin Sodium 134 L Potassium Chloride Carbon Dioxide 18 L BUN Creatinine 1.8 H Glucose 192 H POC Glucose 175 H Lactic Acid Calcium Phosphorus Magnesium Direct Bilirubin AST ALT Alkaline Phosphatase Lactate Dehydrogenase Troponin T C-Reactive Protein Total Protein Albumin Prealbumin Triglycerides Cholesterol LDL Cholesterol Direct HDL Cholesterol Urine pH Urine WBC (Auto) Urine Creatinine Urine Total Protein Fluid Total Protein Vancomycin Trough Rheumatoid Factor Complement C4 Miscellaneous Test Crossmatch 09/05/16 09/05/16 09/05/16 11:38 17:48 23:22 WBC RBC Hgb Hct MCV MCH MCHC RDW Plt Count Lymph % (Auto) [place] % (Auto) Lymph # [place] # Baso # Seg Neutrophils % Seg Neuts % (Manual) Lymphocytes % (Manual) Monocytes % (Manual) Eosinophils % (Manual) Basophils % (Manual) Nucleated RBC % Seg Neutrophils # Seg Neutrophils # Man Lymphocytes # (Manual) Monocytes # (Manual) Eosinophils # (Manual) PT INR Fibrinogen dRVVT Confirm Interp Factor V Activity POC ABG pH POC ABG pCO2 POC ABG pO2 ABG pO2 ABG HCO3 ABG Base Excess ABG Hemoglobin Oxyhemoglobin Sodium Potassium Chloride Carbon Dioxide BUN Creatinine Glucose POC Glucose 164 H 186 H 195 H Lactic Acid Calcium Phosphorus Magnesium Direct Bilirubin AST ALT Alkaline Phosphatase Lactate Dehydrogenase Troponin T C-Reactive Protein Total Protein Albumin Prealbumin Triglycerides Cholesterol LDL Cholesterol Direct HDL Cholesterol Urine pH Urine WBC (Auto) Urine Creatinine Urine Total Protein Fluid Total Protein Vancomycin Trough Rheumatoid Factor Complement C4 Miscellaneous Test Crossmatch 09/06/16 09/06/16 09/06/16 04:12 05:59 07:32 WBC RBC Hgb Hct MCV MCH MCHC RDW Plt Count Lymph % (Auto) [place] % (Auto) Lymph # [place] # Baso # Seg Neutrophils % Seg Neuts % (Manual) Lymphocytes % (Manual) Monocytes % (Manual) Eosinophils % (Manual) Basophils % (Manual) Nucleated RBC % Seg Neutrophils # Seg Neutrophils # Man Lymphocytes # (Manual) Monocytes # (Manual) Eosinophils # (Manual) PT INR Fibrinogen dRVVT Confirm Interp Factor V Activity POC ABG pH 7.514 H POC ABG pCO2 29.1 L POC ABG pO2 72 L ABG pO2 ABG HCO3 ABG Base Excess ABG Hemoglobin Oxyhemoglobin Sodium 133 L Potassium 3.4 L Chloride 94.9 L Carbon Dioxide 19 L BUN 30 H Creatinine 2.1 H Glucose 139 H POC Glucose 146 H Lactic Acid Calcium Phosphorus Magnesium Direct Bilirubin AST ALT Alkaline Phosphatase Lactate Dehydrogenase Troponin T C-Reactive Protein Total Protein Albumin Prealbumin Triglycerides Cholesterol LDL Cholesterol Direct HDL Cholesterol Urine pH Urine WBC (Auto) Urine Creatinine Urine Total Protein Fluid Total Protein Vancomycin Trough Rheumatoid Factor Complement C4 Miscellaneous Test Crossmatch 09/06/16 09/06/16 09/06/16 11:57 17:58 19:02 WBC RBC Hgb Hct MCV MCH MCHC RDW Plt Count Lymph % (Auto) [place] % (Auto) Lymph # [place] # Baso # Seg Neutrophils % Seg Neuts % (Manual) Lymphocytes % (Manual) Monocytes % (Manual) Eosinophils % (Manual) Basophils % (Manual) Nucleated RBC % Seg Neutrophils # Seg Neutrophils # Man Lymphocytes # (Manual) Monocytes # (Manual) Eosinophils # (Manual) PT INR Fibrinogen dRVVT Confirm Interp Factor V Activity POC ABG pH 7.465 H POC ABG pCO2 32.0 L POC ABG pO2 ABG pO2 ABG HCO3 ABG Base Excess ABG Hemoglobin Oxyhemoglobin Sodium Potassium Chloride Carbon Dioxide BUN Creatinine Glucose POC Glucose 165 H 160 H Lactic Acid Calcium Phosphorus Magnesium Direct Bilirubin AST ALT Alkaline Phosphatase Lactate Dehydrogenase Troponin T C-Reactive Protein Total Protein Albumin Prealbumin Triglycerides Cholesterol LDL Cholesterol Direct HDL Cholesterol Urine pH Urine WBC (Auto) Urine Creatinine Urine Total Protein Fluid Total Protein Vancomycin Trough Rheumatoid Factor Complement C4 Miscellaneous Test Crossmatch 09/06/16 09/07/16 09/07/16 23:45 02:47 02:47 WBC RBC Hgb Hct MCV MCH MCHC RDW Plt Count Lymph % (Auto) [place] % (Auto) Lymph # [place] # Baso # Seg Neutrophils % Seg Neuts % (Manual) Lymphocytes % (Manual) Monocytes % (Manual) Eosinophils % (Manual) Basophils % (Manual) Nucleated RBC % Seg Neutrophils # Seg Neutrophils # Man Lymphocytes # (Manual) Monocytes # (Manual) Eosinophils # (Manual) PT INR Fibrinogen dRVVT Confirm Interp Factor V Activity POC ABG pH POC ABG pCO2 POC ABG pO2 ABG pO2 ABG HCO3 ABG Base Excess ABG Hemoglobin Oxyhemoglobin Sodium Potassium Chloride Carbon Dioxide BUN Creatinine Glucose POC Glucose 204 H Lactic Acid Calcium Phosphorus Magnesium Direct Bilirubin AST ALT Alkaline Phosphatase Lactate Dehydrogenase Troponin T C-Reactive Protein Total Protein Albumin Prealbumin Triglycerides Cholesterol LDL Cholesterol Direct HDL Cholesterol Urine pH Urine WBC (Auto) 68.0 H Urine Creatinine 106.1 H Urine Total Protein Fluid Total Protein Vancomycin Trough Rheumatoid Factor Complement C4 Miscellaneous Test Crossmatch 09/07/16 09/07/16 09/07/16 04:50 06:19 06:39 WBC RBC Hgb Hct MCV MCH MCHC RDW Plt Count Lymph % (Auto) [place] % (Auto) Lymph # [place] # Baso # Seg Neutrophils % Seg Neuts % (Manual) Lymphocytes % (Manual) Monocytes % (Manual) Eosinophils % (Manual) Basophils % (Manual) Nucleated RBC % Seg Neutrophils # Seg Neutrophils # Man Lymphocytes # (Manual) Monocytes # (Manual) Eosinophils # (Manual) PT INR Fibrinogen dRVVT Confirm Interp Factor V Activity POC ABG pH 7.457 H POC ABG pCO2 32.1 L POC ABG pO2 76 L ABG pO2 ABG HCO3 ABG Base Excess ABG Hemoglobin Oxyhemoglobin Sodium 132 L Potassium Chloride 94.7 L Carbon Dioxide BUN 53 H Creatinine 2.9 H Glucose 151 H POC Glucose 149 H Lactic Acid Calcium Phosphorus Magnesium Direct Bilirubin AST ALT Alkaline Phosphatase Lactate Dehydrogenase Troponin T C-Reactive Protein Total Protein Albumin Prealbumin Triglycerides Cholesterol LDL Cholesterol Direct HDL Cholesterol Urine pH Urine WBC (Auto) Urine Creatinine Urine Total Protein Fluid Total Protein Vancomycin Trough Rheumatoid Factor Complement C4 Miscellaneous Test Crossmatch 09/07/16 09/07/16 09/07/16 09:20 11:43 11:43 WBC 19.4 H RBC Hgb 8.3 L Hct 26.4 L D MCV 72 L D MCH 22 L MCHC RDW 17.9 H Plt Count Lymph % (Auto) 8.5 L [place] % (Auto) Lymph # [place] # 1.0 H Baso # Seg Neutrophils % 85.8 H Seg Neuts % (Manual) Lymphocytes % (Manual) Monocytes % (Manual) Eosinophils % (Manual) Basophils % (Manual) Nucleated RBC % Seg Neutrophils # 16.6 H Seg Neutrophils # Man Lymphocytes # (Manual) Monocytes # (Manual) Eosinophils # (Manual) PT INR Fibrinogen dRVVT Confirm Interp Factor V Activity POC ABG pH POC ABG pCO2 POC ABG pO2 ABG pO2 ABG HCO3 ABG Base Excess ABG Hemoglobin Oxyhemoglobin Sodium 134 L Potassium Chloride 97.2 L Carbon Dioxide 20 L BUN 58 H Creatinine 2.9 H Glucose 147 H POC Glucose Lactic Acid Calcium Phosphorus 2.40 L Magnesium 2.40 H Direct Bilirubin AST ALT Alkaline Phosphatase Lactate Dehydrogenase Troponin T C-Reactive Protein Total Protein 5.8 L Albumin 2.2 L Prealbumin Triglycerides Cholesterol LDL Cholesterol Direct HDL Cholesterol Urine pH Urine WBC (Auto) Urine Creatinine Urine Total Protein Fluid Total Protein Vancomycin Trough Rheumatoid Factor Complement C4 58 H Miscellaneous Test Crossmatch 09/07/16 09/07/16 09/07/16 11:50 16:00 17:31 WBC RBC Hgb Hct MCV MCH MCHC RDW Plt Count Lymph % (Auto) [place] % (Auto) Lymph # [place] # Baso # Seg Neutrophils % Seg Neuts % (Manual) Lymphocytes % (Manual) Monocytes % (Manual) Eosinophils % (Manual) Basophils % (Manual) Nucleated RBC % Seg Neutrophils # Seg Neutrophils # Man Lymphocytes # (Manual) Monocytes # (Manual) Eosinophils # (Manual) PT INR Fibrinogen dRVVT Confirm Interp Factor V Activity POC ABG pH POC ABG pCO2 POC ABG pO2 158 H ABG pO2 ABG HCO3 ABG Base Excess ABG Hemoglobin Oxyhemoglobin Sodium Potassium Chloride Carbon Dioxide BUN Creatinine Glucose POC Glucose 175 H Lactic Acid Calcium Phosphorus Magnesium Direct Bilirubin AST ALT Alkaline Phosphatase Lactate Dehydrogenase Troponin T C-Reactive Protein Total Protein Albumin Prealbumin Triglycerides Cholesterol LDL Cholesterol Direct HDL Cholesterol Urine pH Urine WBC (Auto) Urine Creatinine 66.3 H Urine Total Protein Fluid Total Protein Vancomycin Trough Rheumatoid Factor Complement C4 Miscellaneous Test Crossmatch 09/07/16 09/08/16 09/08/16 23:50 05:46 06:18 WBC 17.8 H RBC 3.58 L Hgb 8.1 L Hct 25.5 L MCV 71 L MCH 23 L MCHC RDW 18.4 H Plt Count Lymph % (Auto) [place] % (Auto) Lymph # [place] # Baso # Seg Neutrophils % Seg Neuts % (Manual) 92.0 H Lymphocytes % (Manual) 6.0 L Monocytes % (Manual) Eosinophils % (Manual) Basophils % (Manual) Nucleated RBC % Seg Neutrophils # Seg Neutrophils # Man 16.4 H Lymphocytes # (Manual) 1.1 L Monocytes # (Manual) Eosinophils # (Manual) PT INR Fibrinogen dRVVT Confirm Interp Factor V Activity POC ABG pH POC ABG pCO2 34.3 L POC ABG pO2 71 L ABG pO2 ABG HCO3 ABG Base Excess ABG Hemoglobin Oxyhemoglobin Sodium Potassium Chloride Carbon Dioxide BUN Creatinine Glucose POC Glucose 216 H Lactic Acid Calcium Phosphorus Magnesium Direct Bilirubin AST ALT Alkaline Phosphatase Lactate Dehydrogenase Troponin T C-Reactive Protein Total Protein Albumin Prealbumin Triglycerides Cholesterol LDL Cholesterol Direct HDL Cholesterol Urine pH Urine WBC (Auto) Urine Creatinine Urine Total Protein Fluid Total Protein Vancomycin Trough Rheumatoid Factor Complement C4 Miscellaneous Test Crossmatch 09/08/16 09/08/16 09/08/16 06:18 06:51 10:55 WBC RBC Hgb Hct MCV MCH MCHC RDW Plt Count Lymph % (Auto) [place] % (Auto) Lymph # [place] # Baso # Seg Neutrophils % Seg Neuts % (Manual) Lymphocytes % (Manual) Monocytes % (Manual) Eosinophils % (Manual) Basophils % (Manual) Nucleated RBC % Seg Neutrophils # Seg Neutrophils # Man Lymphocytes # (Manual) Monocytes # (Manual) Eosinophils # (Manual) PT INR Fibrinogen dRVVT Confirm Interp Factor V Activity POC ABG pH POC ABG pCO2 POC ABG pO2 ABG pO2 ABG HCO3 ABG Base Excess ABG Hemoglobin Oxyhemoglobin Sodium 133 L Potassium Chloride 96.9 L Carbon Dioxide 20 L BUN 63 H Creatinine 2.7 H Glucose 195 H POC Glucose 204 H 169 H Lactic Acid Calcium Phosphorus Magnesium Direct Bilirubin AST ALT Alkaline Phosphatase Lactate Dehydrogenase Troponin T C-Reactive Protein Total Protein Albumin Prealbumin Triglycerides Cholesterol LDL Cholesterol Direct HDL Cholesterol Urine pH Urine WBC (Auto) Urine Creatinine Urine Total Protein Fluid Total Protein Vancomycin Trough Rheumatoid Factor Complement C4 Miscellaneous Test Crossmatch 09/08/16 09/08/16 09/08/16 11:48 11:48 11:48 WBC RBC Hgb Hct MCV MCH MCHC RDW Plt Count Lymph % (Auto) [place] % (Auto) Lymph # [place] # Baso # Seg Neutrophils % Seg Neuts % (Manual) Lymphocytes % (Manual) Monocytes % (Manual) Eosinophils % (Manual) Basophils % (Manual) Nucleated RBC % Seg Neutrophils # Seg Neutrophils # Man Lymphocytes # (Manual) Monocytes # (Manual) Eosinophils # (Manual) PT INR Fibrinogen 750 H dRVVT Confirm Interp Factor V Activity POC ABG pH POC ABG pCO2 POC ABG pO2 ABG pO2 ABG HCO3 ABG Base Excess ABG Hemoglobin Oxyhemoglobin Sodium Potassium Chloride Carbon Dioxide BUN Creatinine Glucose POC Glucose Lactic Acid Calcium Phosphorus Magnesium Direct Bilirubin AST ALT Alkaline Phosphatase Lactate Dehydrogenase Troponin T C-Reactive Protein 15.70 H Total Protein Albumin Prealbumin Triglycerides Cholesterol LDL Cholesterol Direct HDL Cholesterol Urine pH Urine WBC (Auto) Urine Creatinine Urine Total Protein Fluid Total Protein Vancomycin Trough Rheumatoid Factor 24 H Complement C4 Miscellaneous Test Crossmatch 09/08/16 09/08/16 09/09/16 15:35 18:25 00:24 WBC RBC Hgb Hct MCV MCH MCHC RDW Plt Count Lymph % (Auto) [place] % (Auto) Lymph # [place] # Baso # Seg Neutrophils % Seg Neuts % (Manual) Lymphocytes % (Manual) Monocytes % (Manual) Eosinophils % (Manual) Basophils % (Manual) Nucleated RBC % Seg Neutrophils # Seg Neutrophils # Man Lymphocytes # (Manual) Monocytes # (Manual) Eosinophils # (Manual) PT INR Fibrinogen dRVVT Confirm Interp Factor V Activity 182 H POC ABG pH POC ABG pCO2 POC ABG pO2 ABG pO2 ABG HCO3 ABG Base Excess ABG Hemoglobin Oxyhemoglobin Sodium Potassium Chloride Carbon Dioxide BUN Creatinine Glucose POC Glucose 184 H 216 H Lactic Acid Calcium Phosphorus Magnesium Direct Bilirubin AST ALT Alkaline Phosphatase Lactate Dehydrogenase Troponin T C-Reactive Protein Total Protein Albumin Prealbumin Triglycerides Cholesterol LDL Cholesterol Direct HDL Cholesterol Urine pH Urine WBC (Auto) Urine Creatinine Urine Total Protein Fluid Total Protein Vancomycin Trough Rheumatoid Factor Complement C4 Miscellaneous Test Crossmatch 09/09/16 09/09/16 09/09/16 03:00 03:00 04:04 WBC 27.9 H RBC Hgb 8.7 L Hct 28.1 L MCV 72 L MCH 22 L MCHC RDW 18.4 H Plt Count 485 H Lymph % (Auto) [place] % (Auto) Lymph # [place] # Baso # Seg Neutrophils % Seg Neuts % (Manual) 77.0 H Lymphocytes % (Manual) 9.0 L Monocytes % (Manual) Eosinophils % (Manual) Basophils % (Manual) Nucleated RBC % Seg Neutrophils # Seg Neutrophils # Man 21.5 H Lymphocytes # (Manual) Monocytes # (Manual) 2.0 H Eosinophils # (Manual) PT INR Fibrinogen dRVVT Confirm Interp Factor V Activity POC ABG pH POC ABG pCO2 POC ABG pO2 121 H ABG pO2 ABG HCO3 ABG Base Excess ABG Hemoglobin Oxyhemoglobin Sodium 135 L Potassium Chloride 96.3 L Carbon Dioxide 21 L BUN 83 H Creatinine 3.0 H Glucose 135 H POC Glucose Lactic Acid Calcium Phosphorus Magnesium Direct Bilirubin AST ALT Alkaline Phosphatase Lactate Dehydrogenase Troponin T C-Reactive Protein Total Protein Albumin Prealbumin Triglycerides Cholesterol LDL Cholesterol Direct HDL Cholesterol Urine pH Urine WBC (Auto) Urine Creatinine Urine Total Protein Fluid Total Protein Vancomycin Trough Rheumatoid Factor Complement C4 Miscellaneous Test Crossmatch 09/09/16 09/09/16 09/09/16 05:41 11:55 14:13 WBC RBC Hgb Hct MCV MCH MCHC RDW Plt Count Lymph % (Auto) [place] % (Auto) Lymph # [place] # Baso # Seg Neutrophils % Seg Neuts % (Manual) Lymphocytes % (Manual) Monocytes % (Manual) Eosinophils % (Manual) Basophils % (Manual) Nucleated RBC % Seg Neutrophils # Seg Neutrophils # Man Lymphocytes # (Manual) Monocytes # (Manual) Eosinophils # (Manual) PT INR Fibrinogen dRVVT Confirm Interp Factor V Activity POC ABG pH POC ABG pCO2 POC ABG pO2 ABG pO2 ABG HCO3 ABG Base Excess ABG Hemoglobin Oxyhemoglobin Sodium Potassium Chloride Carbon Dioxide BUN Creatinine Glucose POC Glucose 155 H 186 H Lactic Acid Calcium Phosphorus Magnesium Direct Bilirubin AST ALT Alkaline Phosphatase Lactate Dehydrogenase Troponin T C-Reactive Protein Total Protein Albumin Prealbumin Triglycerides Cholesterol LDL Cholesterol Direct HDL Cholesterol Urine pH Urine WBC (Auto) 25.0 H Urine Creatinine Urine Total Protein Fluid Total Protein Vancomycin Trough Rheumatoid Factor Complement C4 Miscellaneous Test Crossmatch 09/09/16 09/09/16 09/10/16 17:33 23:13 05:09 WBC RBC Hgb Hct MCV MCH MCHC RDW Plt Count Lymph % (Auto) [place] % (Auto) Lymph # [place] # Baso # Seg Neutrophils % Seg Neuts % (Manual) Lymphocytes % (Manual) Monocytes % (Manual) Eosinophils % (Manual) Basophils % (Manual) Nucleated RBC % Seg Neutrophils # Seg Neutrophils # Man Lymphocytes # (Manual) Monocytes # (Manual) Eosinophils # (Manual) PT INR Fibrinogen dRVVT Confirm Interp Factor V Activity POC ABG pH POC ABG pCO2 POC ABG pO2 74 L ABG pO2 ABG HCO3 ABG Base Excess ABG Hemoglobin Oxyhemoglobin Sodium Potassium Chloride Carbon Dioxide BUN Creatinine Glucose POC Glucose 211 H 215 H Lactic Acid Calcium Phosphorus Magnesium Direct Bilirubin AST ALT Alkaline Phosphatase Lactate Dehydrogenase Troponin T C-Reactive Protein Total Protein Albumin Prealbumin Triglycerides Cholesterol LDL Cholesterol Direct HDL Cholesterol Urine pH Urine WBC (Auto) Urine Creatinine Urine Total Protein Fluid Total Protein Vancomycin Trough Rheumatoid Factor Complement C4 Miscellaneous Test Crossmatch 09/10/16 09/10/16 09/10/16 05:17 05:17 11:31 WBC 15.8 H RBC 3.25 L Hgb 7.3 L Hct 22.9 L MCV 71 L MCH 23 L MCHC RDW 18.4 H Plt Count Lymph % (Auto) [place] % (Auto) Lymph # [place] # Baso # Seg Neutrophils % Seg Neuts % (Manual) 91.0 H Lymphocytes % (Manual) 4.0 L Monocytes % (Manual) Eosinophils % (Manual) Basophils % (Manual) Nucleated RBC % Seg Neutrophils # Seg Neutrophils # Man 14.4 H Lymphocytes # (Manual) 0.6 L Monocytes # (Manual) Eosinophils # (Manual) PT INR Fibrinogen dRVVT Confirm Interp Factor V Activity POC ABG pH POC ABG pCO2 POC ABG pO2 ABG pO2 ABG HCO3 ABG Base Excess ABG Hemoglobin Oxyhemoglobin Sodium Potassium Chloride Carbon Dioxide 21 L BUN 93 H Creatinine 2.9 H Glucose 146 H POC Glucose 188 H Lactic Acid Calcium 8.1 L Phosphorus Magnesium Direct Bilirubin AST ALT Alkaline Phosphatase Lactate Dehydrogenase Troponin T C-Reactive Protein Total Protein Albumin Prealbumin Triglycerides Cholesterol LDL Cholesterol Direct HDL Cholesterol Urine pH Urine WBC (Auto) Urine Creatinine Urine Total Protein Fluid Total Protein Vancomycin Trough Rheumatoid Factor Complement C4 Miscellaneous Test Crossmatch 0709/[id number] 09/10/16 13:17 17:20 23:32 WBC RBC Hgb Hct MCV MCH MCHC RDW Plt Count Lymph % (Auto) [place] % (Auto) Lymph # [place] # Baso # Seg Neutrophils % Seg Neuts % (Manual) Lymphocytes % (Manual) Monocytes % (Manual) Eosinophils % (Manual) Basophils % (Manual) Nucleated RBC % Seg Neutrophils # Seg Neutrophils # Man Lymphocytes # (Manual) Monocytes # (Manual) Eosinophils # (Manual) PT INR Fibrinogen dRVVT Confirm Interp Factor V Activity POC ABG pH POC ABG pCO2 POC ABG pO2 ABG pO2 ABG HCO3 ABG Base Excess ABG Hemoglobin Oxyhemoglobin Sodium Potassium Chloride Carbon Dioxide BUN Creatinine Glucose POC Glucose 199 H 186 H Lactic Acid Calcium Phosphorus Magnesium Direct Bilirubin AST ALT Alkaline Phosphatase Lactate Dehydrogenase Troponin T C-Reactive Protein Total Protein Albumin Prealbumin Triglycerides Cholesterol LDL Cholesterol Direct HDL Cholesterol Urine pH Urine WBC (Auto) Urine Creatinine Urine Total Protein Fluid Total Protein Vancomycin Trough Rheumatoid Factor Complement C4 Miscellaneous Test Crossmatch See Detail 09/11/16 09/11/16 09/11/16 05:10 05:10 05:17 WBC 28.4 H RBC Hgb 9.2 L Hct 29.3 L D MCV 73 L MCH 23 L MCHC RDW 18.9 H Plt Count 452 H Lymph % (Auto) [place] % (Auto) Lymph # [place] # Baso # Seg Neutrophils % Seg Neuts % (Manual) 89.5 H Lymphocytes % (Manual) 2.0 L Monocytes % (Manual) Eosinophils % (Manual) Basophils % (Manual) Nucleated RBC % Seg Neutrophils # Seg Neutrophils # Man 25.4 H Lymphocytes # (Manual) 0.6 L Monocytes # (Manual) 1.3 H Eosinophils # (Manual) PT INR Fibrinogen dRVVT Confirm Interp Factor V Activity POC ABG pH POC ABG pCO2 POC ABG pO2 ABG pO2 ABG HCO3 ABG Base Excess ABG Hemoglobin Oxyhemoglobin Sodium 136 L Potassium Chloride Carbon Dioxide 18 L BUN 107 H Creatinine 2.6 H Glucose 187 H POC Glucose 230 H Lactic Acid Calcium 8.3 L Phosphorus Magnesium Direct Bilirubin AST ALT Alkaline Phosphatase Lactate Dehydrogenase Troponin T C-Reactive Protein Total Protein Albumin Prealbumin Triglycerides Cholesterol LDL Cholesterol Direct HDL Cholesterol Urine pH Urine WBC (Auto) Urine Creatinine Urine Total Protein Fluid Total Protein Vancomycin Trough Rheumatoid Factor Complement C4 Miscellaneous Test Crossmatch 09/11/16 09/11/16 09/11/16 05:55 12:02 17:32 WBC RBC Hgb Hct MCV MCH MCHC RDW Plt Count Lymph % (Auto) [place] % (Auto) Lymph # [place] # Baso # Seg Neutrophils % Seg Neuts % (Manual) Lymphocytes % (Manual) Monocytes % (Manual) Eosinophils % (Manual) Basophils % (Manual) Nucleated RBC % Seg Neutrophils # Seg Neutrophils # Man Lymphocytes # (Manual) Monocytes # (Manual) Eosinophils # (Manual) PT INR Fibrinogen dRVVT Confirm Interp Factor V Activity POC ABG pH POC ABG pCO2 33.8 L POC ABG pO2 ABG pO2 ABG HCO3 ABG Base Excess ABG Hemoglobin Oxyhemoglobin Sodium Potassium Chloride Carbon Dioxide BUN Creatinine Glucose POC Glucose 191 H 239 H Lactic Acid Calcium Phosphorus Magnesium Direct Bilirubin AST ALT Alkaline Phosphatase Lactate Dehydrogenase Troponin T C-Reactive Protein Total Protein Albumin Prealbumin Triglycerides Cholesterol LDL Cholesterol Direct HDL Cholesterol Urine pH Urine WBC (Auto) Urine Creatinine Urine Total Protein Fluid Total Protein Vancomycin Trough Rheumatoid Factor Complement C4 Miscellaneous Test Crossmatch 09/11/16 09/12/16 09/12/16 23:52 05:09 05:32 WBC RBC Hgb Hct MCV MCH MCHC RDW Plt Count Lymph % (Auto) [place] % (Auto) Lymph # [place] # Baso # Seg Neutrophils % Seg Neuts % (Manual) Lymphocytes % (Manual) Monocytes % (Manual) Eosinophils % (Manual) Basophils % (Manual) Nucleated RBC % Seg Neutrophils # Seg Neutrophils # Man Lymphocytes # (Manual) Monocytes # (Manual) Eosinophils # (Manual) PT INR Fibrinogen dRVVT Confirm Interp Factor V Activity POC ABG pH POC ABG pCO2 34.6 L POC ABG pO2 ABG pO2 ABG HCO3 ABG Base Excess ABG Hemoglobin Oxyhemoglobin Sodium Potassium Chloride Carbon Dioxide BUN Creatinine Glucose POC Glucose 265 H 184 H Lactic Acid Calcium Phosphorus Magnesium Direct Bilirubin AST ALT Alkaline Phosphatase Lactate Dehydrogenase Troponin T C-Reactive Protein Total Protein Albumin Prealbumin Triglycerides Cholesterol LDL Cholesterol Direct HDL Cholesterol Urine pH Urine WBC (Auto) Urine Creatinine Urine Total Protein Fluid Total Protein Vancomycin Trough Rheumatoid Factor Complement C4 Miscellaneous Test Crossmatch 09/12/16 09/12/16 09/12/16 06:45 06:45 07:22 WBC 31.7 H RBC 3.54 L Hgb 8.3 L Hct 25.9 L MCV 73 L MCH 23 L MCHC RDW 18.9 H Plt Count Lymph % (Auto) [place] % (Auto) Lymph # [place] # Baso # Seg Neutrophils % Seg Neuts % (Manual) 88.5 H Lymphocytes % (Manual) 4.5 L Monocytes % (Manual) Eosinophils % (Manual) Basophils % (Manual) Nucleated RBC % Seg Neutrophils # Seg Neutrophils # Man 28.1 H Lymphocytes # (Manual) Monocytes # (Manual) 1.0 H Eosinophils # (Manual) PT INR Fibrinogen dRVVT Confirm Interp Factor V Activity POC ABG pH POC ABG pCO2 POC ABG pO2 ABG pO2 ABG HCO3 ABG Base Excess ABG Hemoglobin Oxyhemoglobin Sodium Potassium Chloride Carbon Dioxide 20 L BUN 115 H Creatinine 2.7 H Glucose 165 H POC Glucose Lactic Acid Calcium 8.0 L Phosphorus Magnesium Direct Bilirubin AST ALT Alkaline Phosphatase Lactate Dehydrogenase Troponin T C-Reactive Protein Total Protein Albumin Prealbumin Triglycerides 217 H Cholesterol LDL Cholesterol Direct HDL Cholesterol Urine pH Urine WBC (Auto) Urine Creatinine Urine Total Protein Fluid Total Protein Vancomycin Trough Rheumatoid Factor Complement C4 Miscellaneous Test Crossmatch 09/12/16 09/12/16 09/12/16 07:22 09:59 12:21 WBC RBC Hgb Hct MCV MCH MCHC RDW Plt Count Lymph % (Auto) [place] % (Auto) Lymph # [place] # Baso # Seg Neutrophils % Seg Neuts % (Manual) Lymphocytes % (Manual) Monocytes % (Manual) Eosinophils % (Manual) Basophils % (Manual) Nucleated RBC % Seg Neutrophils # Seg Neutrophils # Man Lymphocytes # (Manual) Monocytes # (Manual) Eosinophils # (Manual) PT INR Fibrinogen dRVVT Confirm Interp Positive H Factor V Activity POC ABG pH POC ABG pCO2 POC ABG pO2 ABG pO2 ABG HCO3 ABG Base Excess ABG Hemoglobin Oxyhemoglobin Sodium Potassium Chloride Carbon Dioxide BUN Creatinine Glucose POC Glucose 224 H Lactic Acid Calcium Phosphorus Magnesium Direct Bilirubin AST ALT Alkaline Phosphatase Lactate Dehydrogenase Troponin T C-Reactive Protein 1.70 H Total Protein Albumin Prealbumin Triglycerides Cholesterol LDL Cholesterol Direct HDL Cholesterol Urine pH Urine WBC (Auto) Urine Creatinine Urine Total Protein Fluid Total Protein Vancomycin Trough Rheumatoid Factor Complement C4 Miscellaneous Test Crossmatch 09/12/16 09/12/16 09/13/16 16:51 23:28 04:00 WBC 45.0 H* RBC Hgb 9.4 L Hct MCV 75 L MCH 23 L MCHC RDW 19.0 H Plt Count 470 H Lymph % (Auto) [place] % (Auto) Lymph # [place] # Baso # Seg Neutrophils % Seg Neuts % (Manual) 89.0 H Lymphocytes % (Manual) 5.0 L Monocytes % (Manual) Eosinophils % (Manual) Basophils % (Manual) Nucleated RBC % Seg Neutrophils # Seg Neutrophils # Man 40.1 H Lymphocytes # (Manual) Monocytes # (Manual) Eosinophils # (Manual) PT INR Fibrinogen dRVVT Confirm Interp Factor V Activity POC ABG pH POC ABG pCO2 POC ABG pO2 ABG pO2 ABG HCO3 ABG Base Excess ABG Hemoglobin Oxyhemoglobin Sodium Potassium Chloride Carbon Dioxide BUN Creatinine Glucose POC Glucose 169 H 150 H Lactic Acid Calcium Phosphorus Magnesium Direct Bilirubin AST ALT Alkaline Phosphatase Lactate Dehydrogenase Troponin T C-Reactive Protein Total Protein Albumin Prealbumin Triglycerides Cholesterol LDL Cholesterol Direct HDL Cholesterol Urine pH Urine WBC (Auto) Urine Creatinine Urine Total Protein Fluid Total Protein Vancomycin Trough Rheumatoid Factor Complement C4 Miscellaneous Test Crossmatch 09/13/16 09/13/16 09/13/16 04:00 11:26 17:31 WBC RBC Hgb Hct MCV MCH MCHC RDW Plt Count Lymph % (Auto) [place] % (Auto) Lymph # [place] # Baso # Seg Neutrophils % Seg Neuts % (Manual) Lymphocytes % (Manual) Monocytes % (Manual) Eosinophils % (Manual) Basophils % (Manual) Nucleated RBC % Seg Neutrophils # Seg Neutrophils # Man Lymphocytes # (Manual) Monocytes # (Manual) Eosinophils # (Manual) PT INR Fibrinogen dRVVT Confirm Interp Factor V Activity POC ABG pH POC ABG pCO2 POC ABG pO2 ABG pO2 ABG HCO3 ABG Base Excess ABG Hemoglobin Oxyhemoglobin Sodium Potassium Chloride Carbon Dioxide 20 L BUN 116 H Creatinine 3.0 H Glucose 172 H POC Glucose 140 H 183 H Lactic Acid Calcium Phosphorus Magnesium Direct Bilirubin AST ALT Alkaline Phosphatase Lactate Dehydrogenase Troponin T C-Reactive Protein Total Protein 6.2 L Albumin 2.9 L Prealbumin Triglycerides Cholesterol LDL Cholesterol Direct HDL Cholesterol Urine pH Urine WBC (Auto) Urine Creatinine Urine Total Protein Fluid Total Protein Vancomycin Trough Rheumatoid Factor Complement C4 Miscellaneous Test Crossmatch 09/13/16 09/14/16 09/14/16 23:23 04:06 04:07 WBC 29.4 H RBC Hgb 8.9 L Hct 27.3 L MCV 75 L MCH 24 L MCHC RDW 19.1 H Plt Count Lymph % (Auto) [place] % (Auto) Lymph # [place] # Baso # Seg Neutrophils % Seg Neuts % (Manual) 84.0 H Lymphocytes % (Manual) 6.0 L Monocytes % (Manual) 9.0 H Eosinophils % (Manual) Basophils % (Manual) Nucleated RBC % Seg Neutrophils # Seg Neutrophils # Man 24.7 H Lymphocytes # (Manual) Monocytes # (Manual) 2.6 H Eosinophils # (Manual) PT INR Fibrinogen dRVVT Confirm Interp Factor V Activity POC ABG pH 7.342 L POC ABG pCO2 POC ABG pO2 116 H ABG pO2 ABG HCO3 ABG Base Excess ABG Hemoglobin Oxyhemoglobin Sodium Potassium Chloride Carbon Dioxide BUN Creatinine Glucose POC Glucose 154 H Lactic Acid Calcium Phosphorus Magnesium Direct Bilirubin AST ALT Alkaline Phosphatase Lactate Dehydrogenase Troponin T C-Reactive Protein Total Protein Albumin Prealbumin Triglycerides Cholesterol LDL Cholesterol Direct HDL Cholesterol Urine pH Urine WBC (Auto) Urine Creatinine Urine Total Protein Fluid Total Protein Vancomycin Trough Rheumatoid Factor Complement C4 Miscellaneous Test Crossmatch 09/14/16 09/14/16 09/14/16 04:07 05:29 12:19 WBC RBC Hgb Hct MCV MCH MCHC RDW Plt Count Lymph % (Auto) [place] % (Auto) Lymph # [place] # Baso # Seg Neutrophils % Seg Neuts % (Manual) Lymphocytes % (Manual) Monocytes % (Manual) Eosinophils % (Manual) Basophils % (Manual) Nucleated RBC % Seg Neutrophils # Seg Neutrophils # Man Lymphocytes # (Manual) Monocytes # (Manual) Eosinophils # (Manual) PT INR Fibrinogen dRVVT Confirm Interp Factor V Activity POC ABG pH POC ABG pCO2 POC ABG pO2 ABG pO2 ABG HCO3 ABG Base Excess ABG Hemoglobin Oxyhemoglobin Sodium 136 L Potassium Chloride Carbon Dioxide 18 L BUN 121 H Creatinine 2.8 H Glucose 214 H POC Glucose 239 H 181 H Lactic Acid Calcium Phosphorus Magnesium Direct Bilirubin AST ALT Alkaline Phosphatase Lactate Dehydrogenase Troponin T C-Reactive Protein Total Protein Albumin Prealbumin Triglycerides Cholesterol LDL Cholesterol Direct HDL Cholesterol Urine pH Urine WBC (Auto) Urine Creatinine Urine Total Protein Fluid Total Protein Vancomycin Trough Rheumatoid Factor Complement C4 Miscellaneous Test Crossmatch 09/14/16 09/14/16 09/15/16 18:12 23:37 05:00 WBC 26.1 H RBC 3.05 L Hgb 7.2 L Hct 22.9 L MCV 75 L MCH 24 L MCHC RDW 19.0 H Plt Count Lymph % (Auto) [place] % (Auto) Lymph # [place] # Baso # Seg Neutrophils % Seg Neuts % (Manual) Lymphocytes % (Manual) Monocytes % (Manual) Eosinophils % (Manual) Basophils % (Manual) Nucleated RBC % Seg Neutrophils # Seg Neutrophils # Man Lymphocytes # (Manual) Monocytes # (Manual) Eosinophils # (Manual) PT INR Fibrinogen dRVVT Confirm Interp Factor V Activity POC ABG pH POC ABG pCO2 POC ABG pO2 ABG pO2 ABG HCO3 ABG Base Excess ABG Hemoglobin Oxyhemoglobin Sodium Potassium Chloride Carbon Dioxide BUN Creatinine Glucose POC Glucose 266 H 154 H Lactic Acid Calcium Phosphorus Magnesium Direct Bilirubin AST ALT Alkaline Phosphatase Lactate Dehydrogenase Troponin T C-Reactive Protein Total Protein Albumin Prealbumin Triglycerides Cholesterol LDL Cholesterol Direct HDL Cholesterol Urine pH Urine WBC (Auto) Urine Creatinine Urine Total Protein Fluid Total Protein Vancomycin Trough Rheumatoid Factor Complement C4 Miscellaneous Test Crossmatch 09/15/16 09/15/16 09/15/16 05:00 05:17 12:45 WBC RBC Hgb Hct MCV MCH MCHC RDW Plt Count Lymph % (Auto) [place] % (Auto) Lymph # [place] # Baso # Seg Neutrophils % Seg Neuts % (Manual) Lymphocytes % (Manual) Monocytes % (Manual) Eosinophils % (Manual) Basophils % (Manual) Nucleated RBC % Seg Neutrophils # Seg Neutrophils # Man Lymphocytes # (Manual) Monocytes # (Manual) Eosinophils # (Manual) PT INR Fibrinogen dRVVT Confirm Interp Factor V Activity POC ABG pH POC ABG pCO2 POC ABG pO2 ABG pO2 ABG HCO3 ABG Base Excess ABG Hemoglobin Oxyhemoglobin Sodium Potassium 5.2 H Chloride Carbon Dioxide 18 L BUN 139 H Creatinine 3.7 H Glucose 227 H POC Glucose 226 H 244 H Lactic Acid Calcium 8.3 L Phosphorus Magnesium Direct Bilirubin AST ALT Alkaline Phosphatase Lactate Dehydrogenase Troponin T C-Reactive Protein Total Protein Albumin Prealbumin Triglycerides Cholesterol LDL Cholesterol Direct HDL Cholesterol Urine pH Urine WBC (Auto) Urine Creatinine Urine Total Protein Fluid Total Protein Vancomycin Trough Rheumatoid Factor Complement C4 Miscellaneous Test Crossmatch 09/15/16 09/15/16 09/15/16 14:32 17:33 23:35 WBC RBC Hgb Hct MCV MCH MCHC RDW Plt Count Lymph % (Auto) [place] % (Auto) Lymph # [place] # Baso # Seg Neutrophils % Seg Neuts % (Manual) Lymphocytes % (Manual) Monocytes % (Manual) Eosinophils % (Manual) Basophils % (Manual) Nucleated RBC % Seg Neutrophils # Seg Neutrophils # Man Lymphocytes # (Manual) Monocytes # (Manual) Eosinophils # (Manual) PT INR Fibrinogen dRVVT Confirm Interp Factor V Activity POC ABG pH POC ABG pCO2 27.7 L POC ABG pO2 120 H ABG pO2 ABG HCO3 ABG Base Excess ABG Hemoglobin Oxyhemoglobin Sodium Potassium Chloride Carbon Dioxide BUN Creatinine Glucose POC Glucose 232 H 167 H Lactic Acid Calcium Phosphorus Magnesium Direct Bilirubin AST ALT Alkaline Phosphatase Lactate Dehydrogenase Troponin T C-Reactive Protein Total Protein Albumin Prealbumin Triglycerides Cholesterol LDL Cholesterol Direct HDL Cholesterol Urine pH Urine WBC (Auto) Urine Creatinine Urine Total Protein Fluid Total Protein Vancomycin Trough Rheumatoid Factor Complement C4 Miscellaneous Test Crossmatch 09/16/16 09/16/16 09/16/16 03:58 10:27 10:27 WBC 19.0 H RBC 2.77 L Hgb 6.5 L Hct 20.9 L MCV 76 L MCH 23 L MCHC RDW 19.3 H Plt Count Lymph % (Auto) 11.0 L [place] % (Auto) Lymph # [place] # 1.1 H Baso # Seg Neutrophils % 82.5 H Seg Neuts % (Manual) Lymphocytes % (Manual) Monocytes % (Manual) Eosinophils % (Manual) Basophils % (Manual) Nucleated RBC % Seg Neutrophils # 15.7 H Seg Neutrophils # Man Lymphocytes # (Manual) Monocytes # (Manual) Eosinophils # (Manual) PT INR Fibrinogen dRVVT Confirm Interp Factor V Activity POC ABG pH POC ABG pCO2 POC ABG pO2 ABG pO2 ABG HCO3 ABG Base Excess ABG Hemoglobin Oxyhemoglobin Sodium Potassium Chloride 109.3 H Carbon Dioxide 18 L BUN 139 H Creatinine 4.1 H Glucose 144 H POC Glucose 146 H Lactic Acid Calcium 8.1 L Phosphorus Magnesium Direct Bilirubin AST ALT Alkaline Phosphatase Lactate Dehydrogenase Troponin T C-Reactive Protein Total Protein Albumin Prealbumin Triglycerides Cholesterol LDL Cholesterol Direct HDL Cholesterol Urine pH Urine WBC (Auto) Urine Creatinine Urine Total Protein Fluid Total Protein Vancomycin Trough Rheumatoid Factor Complement C4 Miscellaneous Test Crossmatch 09/16/16 09/16/16 09/16/16 12:04 12:10 13:55 WBC RBC Hgb Hct MCV MCH MCHC RDW Plt Count Lymph % (Auto) [place] % (Auto) Lymph # [place] # Baso # Seg Neutrophils % Seg Neuts % (Manual) Lymphocytes % (Manual) Monocytes % (Manual) Eosinophils % (Manual) Basophils % (Manual) Nucleated RBC % Seg Neutrophils # Seg Neutrophils # Man Lymphocytes # (Manual) Monocytes # (Manual) Eosinophils # (Manual) PT INR Fibrinogen dRVVT Confirm Interp Factor V Activity POC ABG pH POC ABG pCO2 32.9 L POC ABG pO2 ABG pO2 ABG HCO3 ABG Base Excess ABG Hemoglobin Oxyhemoglobin Sodium Potassium Chloride Carbon Dioxide BUN Creatinine Glucose POC Glucose 185 H Lactic Acid Calcium Phosphorus Magnesium Direct Bilirubin AST ALT Alkaline Phosphatase Lactate Dehydrogenase Troponin T C-Reactive Protein Total Protein Albumin Prealbumin Triglycerides Cholesterol LDL Cholesterol Direct HDL Cholesterol Urine pH Urine WBC (Auto) Urine Creatinine Urine Total Protein Fluid Total Protein Vancomycin Trough Rheumatoid Factor Complement C4 Miscellaneous Test Crossmatch See Detail 09/16/16 09/16/16 09/16/16 17:55 19:19 23:48 WBC RBC Hgb Hct MCV MCH MCHC RDW Plt Count Lymph % (Auto) [place] % (Auto) Lymph # [place] # Baso # Seg Neutrophils % Seg Neuts % (Manual) Lymphocytes % (Manual) Monocytes % (Manual) Eosinophils % (Manual) Basophils % (Manual) Nucleated RBC % Seg Neutrophils # Seg Neutrophils # Man Lymphocytes # (Manual) Monocytes # (Manual) Eosinophils # (Manual) PT INR Fibrinogen dRVVT Confirm Interp Factor V Activity POC ABG pH POC ABG pCO2 POC ABG pO2 ABG pO2 ABG HCO3 ABG Base Excess ABG Hemoglobin Oxyhemoglobin Sodium Potassium Chloride Carbon Dioxide BUN Creatinine Glucose POC Glucose 222 H 107 H Lactic Acid Calcium Phosphorus Magnesium Direct Bilirubin AST ALT Alkaline Phosphatase Lactate Dehydrogenase Troponin T C-Reactive Protein Total Protein Albumin Prealbumin Triglycerides Cholesterol LDL Cholesterol Direct HDL Cholesterol Urine pH Urine WBC (Auto) Urine Creatinine 47.4 H Urine Total Protein 16 H Fluid Total Protein Vancomycin Trough Rheumatoid Factor Complement C4 Miscellaneous Test Crossmatch 09/17/16 09/17/16 09/17/16 03:45 03:45 04:55 WBC 19.6 H RBC 3.41 L Hgb 8.5 L Hct 26.7 L MCV 78 L MCH 25 L MCHC RDW 19.9 H Plt Count Lymph % (Auto) 9.3 L [place] % (Auto) Lymph # [place] # 1.2 H Baso # Seg Neutrophils % 83.9 H Seg Neuts % (Manual) Lymphocytes % (Manual) Monocytes % (Manual) Eosinophils % (Manual) Basophils % (Manual) Nucleated RBC % Seg Neutrophils # 16.4 H Seg Neutrophils # Man Lymphocytes # (Manual) Monocytes # (Manual) Eosinophils # (Manual) PT INR Fibrinogen dRVVT Confirm Interp Factor V Activity POC ABG pH POC ABG pCO2 POC ABG pO2 ABG pO2 ABG HCO3 ABG Base Excess ABG Hemoglobin Oxyhemoglobin Sodium 146 H Potassium 5.1 H Chloride 110.9 H Carbon Dioxide 16 L BUN 146 H Creatinine 4.0 H Glucose 108 H POC Glucose 133 H Lactic Acid Calcium Phosphorus Magnesium 3.00 H Direct Bilirubin AST ALT Alkaline Phosphatase Lactate Dehydrogenase Troponin T C-Reactive Protein Total Protein Albumin Prealbumin Triglycerides Cholesterol LDL Cholesterol Direct HDL Cholesterol Urine pH Urine WBC (Auto) Urine Creatinine Urine Total Protein Fluid Total Protein Vancomycin Trough Rheumatoid Factor Complement C4 Miscellaneous Test Crossmatch 09/17/16 09/17/16 09/17/16 11:15 17:33 23:47 WBC RBC Hgb Hct MCV MCH MCHC RDW Plt Count Lymph % (Auto) [place] % (Auto) Lymph # [place] # Baso # Seg Neutrophils % Seg Neuts % (Manual) Lymphocytes % (Manual) Monocytes % (Manual) Eosinophils % (Manual) Basophils % (Manual) Nucleated RBC % Seg Neutrophils # Seg Neutrophils # Man Lymphocytes # (Manual) Monocytes # (Manual) Eosinophils # (Manual) PT INR Fibrinogen dRVVT Confirm Interp Factor V Activity POC ABG pH POC ABG pCO2 POC ABG pO2 ABG pO2 ABG HCO3 ABG Base Excess ABG Hemoglobin Oxyhemoglobin Sodium Potassium Chloride Carbon Dioxide BUN Creatinine Glucose POC Glucose 176 H 246 H 148 H Lactic Acid Calcium Phosphorus Magnesium Direct Bilirubin AST ALT Alkaline Phosphatase Lactate Dehydrogenase Troponin T C-Reactive Protein Total Protein Albumin Prealbumin Triglycerides Cholesterol LDL Cholesterol Direct HDL Cholesterol Urine pH Urine WBC (Auto) Urine Creatinine Urine Total Protein Fluid Total Protein Vancomycin Trough Rheumatoid Factor Complement C4 Miscellaneous Test Crossmatch 09/18/16 09/18/16 09/18/16 05:33 08:31 08:31 WBC 18.0 H RBC 3.17 L Hgb 9.0 L Hct 25.7 L MCV MCH MCHC 35 H RDW 20.4 H Plt Count Lymph % (Auto) [place] % (Auto) Lymph # [place] # Baso # Seg Neutrophils % Seg Neuts % (Manual) Lymphocytes % (Manual) Monocytes % (Manual) Eosinophils % (Manual) Basophils % (Manual) Nucleated RBC % Seg Neutrophils # Seg Neutrophils # Man Lymphocytes # (Manual) Monocytes # (Manual) Eosinophils # (Manual) PT INR Fibrinogen dRVVT Confirm Interp Factor V Activity POC ABG pH POC ABG pCO2 POC ABG pO2 ABG pO2 ABG HCO3 ABG Base Excess ABG Hemoglobin Oxyhemoglobin Sodium Potassium Chloride Carbon Dioxide 15 L BUN 124 H Creatinine 3.8 H Glucose POC Glucose 120 H Lactic Acid Calcium 8.1 L Phosphorus Magnesium Direct Bilirubin AST ALT Alkaline Phosphatase Lactate Dehydrogenase Troponin T C-Reactive Protein Total Protein Albumin Prealbumin Triglycerides Cholesterol LDL Cholesterol Direct HDL Cholesterol Urine pH Urine WBC (Auto) Urine Creatinine Urine Total Protein Fluid Total Protein Vancomycin Trough Rheumatoid Factor Complement C4 Miscellaneous Test Crossmatch 09/18/16 09/18/16 09/18/16 12:03 15:34 17:50 WBC RBC Hgb Hct MCV MCH MCHC RDW Plt Count Lymph % (Auto) [place] % (Auto) Lymph # [place] # Baso # Seg Neutrophils % Seg Neuts % (Manual) Lymphocytes % (Manual) Monocytes % (Manual) Eosinophils % (Manual) Basophils % (Manual) Nucleated RBC % Seg Neutrophils # Seg Neutrophils # Man Lymphocytes # (Manual) Monocytes # (Manual) Eosinophils # (Manual) PT INR Fibrinogen dRVVT Confirm Interp Factor V Activity POC ABG pH POC ABG pCO2 25.7 L POC ABG pO2 66 L ABG pO2 ABG HCO3 ABG Base Excess ABG Hemoglobin Oxyhemoglobin Sodium Potassium Chloride Carbon Dioxide BUN Creatinine Glucose POC Glucose 156 H 220 H Lactic Acid Calcium Phosphorus Magnesium Direct Bilirubin AST ALT Alkaline Phosphatase Lactate Dehydrogenase Troponin T C-Reactive Protein Total Protein Albumin Prealbumin Triglycerides Cholesterol LDL Cholesterol Direct HDL Cholesterol Urine pH Urine WBC (Auto) Urine Creatinine Urine Total Protein Fluid Total Protein Vancomycin Trough Rheumatoid Factor Complement C4 Miscellaneous Test Crossmatch 09/19/16 09/19/16 09/19/16 06:21 09:50 09:50 WBC 17.1 H RBC 3.49 L Hgb 9.0 L Hct 28.1 L MCV MCH 26 L MCHC RDW 20.8 H Plt Count Lymph % (Auto) 11.5 L [place] % (Auto) 7.5 H Lymph # [place] # 1.3 H Baso # Seg Neutrophils % 79.8 H Seg Neuts % (Manual) Lymphocytes % (Manual) Monocytes % (Manual) Eosinophils % (Manual) Basophils % (Manual) Nucleated RBC % Seg Neutrophils # 13.7 H Seg Neutrophils # Man Lymphocytes # (Manual) Monocytes # (Manual) Eosinophils # (Manual) PT INR Fibrinogen dRVVT Confirm Interp Factor V Activity POC ABG pH POC ABG pCO2 POC ABG pO2 ABG pO2 ABG HCO3 ABG Base Excess ABG Hemoglobin Oxyhemoglobin Sodium Potassium Chloride 108.6 H Carbon Dioxide 15 L BUN 125 H Creatinine 4.1 H Glucose 124 H POC Glucose 119 H Lactic Acid Calcium Phosphorus Magnesium Direct Bilirubin AST ALT Alkaline Phosphatase Lactate Dehydrogenase Troponin T C-Reactive Protein Total Protein Albumin Prealbumin Triglycerides Cholesterol LDL Cholesterol Direct HDL Cholesterol Urine pH Urine WBC (Auto) Urine Creatinine Urine Total Protein Fluid Total Protein Vancomycin Trough Rheumatoid Factor Complement C4 Miscellaneous Test Crossmatch 09/19/16 09/19/16 09/19/16 11:25 17:53 23:36 WBC RBC Hgb Hct MCV MCH MCHC RDW Plt Count Lymph % (Auto) [place] % (Auto) Lymph # [place] # Baso # Seg Neutrophils % Seg Neuts % (Manual) Lymphocytes % (Manual) Monocytes % (Manual) Eosinophils % (Manual) Basophils % (Manual) Nucleated RBC % Seg Neutrophils # Seg Neutrophils # Man Lymphocytes # (Manual) Monocytes # (Manual) Eosinophils # (Manual) PT INR Fibrinogen dRVVT Confirm Interp Factor V Activity POC ABG pH POC ABG pCO2 POC ABG pO2 ABG pO2 ABG HCO3 ABG Base Excess ABG Hemoglobin Oxyhemoglobin Sodium Potassium Chloride Carbon Dioxide BUN Creatinine Glucose POC Glucose 160 H 245 H 121 H Lactic Acid Calcium Phosphorus Magnesium Direct Bilirubin AST ALT Alkaline Phosphatase Lactate Dehydrogenase Troponin T C-Reactive Protein Total Protein Albumin Prealbumin Triglycerides Cholesterol LDL Cholesterol Direct HDL Cholesterol Urine pH Urine WBC (Auto) Urine Creatinine Urine Total Protein Fluid Total Protein Vancomycin Trough Rheumatoid Factor Complement C4 Miscellaneous Test Crossmatch 09/20/16 09/20/16 09/20/16 04:10 04:10 04:10 WBC 17.0 H RBC 3.21 L Hgb 8.2 L Hct 25.5 L MCV MCH 26 L MCHC RDW 20.9 H Plt Count Lymph % (Auto) [place] % (Auto) Lymph # [place] # Baso # Seg Neutrophils % Seg Neuts % (Manual) Lymphocytes % (Manual) Monocytes % (Manual) Eosinophils % (Manual) Basophils % (Manual) Nucleated RBC % Seg Neutrophils # Seg Neutrophils # Man Lymphocytes # (Manual) Monocytes # (Manual) Eosinophils # (Manual) PT INR Fibrinogen dRVVT Confirm Interp Factor V Activity POC ABG pH POC ABG pCO2 POC ABG pO2 ABG pO2 ABG HCO3 ABG Base Excess ABG Hemoglobin Oxyhemoglobin Sodium Potassium Chloride 111.0 H Carbon Dioxide 16 L BUN 129 H Creatinine 3.7 H Glucose 115 H POC Glucose Lactic Acid Calcium 8.2 L Phosphorus Magnesium Direct Bilirubin AST ALT Alkaline Phosphatase Lactate Dehydrogenase Troponin T C-Reactive Protein Total Protein Albumin Prealbumin Triglycerides 243 H Cholesterol LDL Cholesterol Direct HDL Cholesterol Urine pH Urine WBC (Auto) Urine Creatinine Urine Total Protein Fluid Total Protein Vancomycin Trough Rheumatoid Factor Complement C4 Miscellaneous Test Crossmatch 09/20/16 09/20/16 09/20/16 05:40 11:52 16:50 WBC RBC Hgb Hct MCV MCH MCHC RDW Plt Count Lymph % (Auto) [place] % (Auto) Lymph # [place] # Baso # Seg Neutrophils % Seg Neuts % (Manual) Lymphocytes % (Manual) Monocytes % (Manual) Eosinophils % (Manual) Basophils % (Manual) Nucleated RBC % Seg Neutrophils # Seg Neutrophils # Man Lymphocytes # (Manual) Monocytes # (Manual) Eosinophils # (Manual) PT INR Fibrinogen dRVVT Confirm Interp Factor V Activity POC ABG pH POC ABG pCO2 POC ABG pO2 ABG pO2 ABG HCO3 ABG Base Excess ABG Hemoglobin Oxyhemoglobin Sodium Potassium Chloride Carbon Dioxide BUN Creatinine Glucose POC Glucose 131 H 183 H 236 H Lactic Acid Calcium Phosphorus Magnesium Direct Bilirubin AST ALT Alkaline Phosphatase Lactate Dehydrogenase Troponin T C-Reactive Protein Total Protein Albumin Prealbumin Triglycerides Cholesterol LDL Cholesterol Direct HDL Cholesterol Urine pH Urine WBC (Auto) Urine Creatinine Urine Total Protein Fluid Total Protein Vancomycin Trough Rheumatoid Factor Complement C4 Miscellaneous Test Crossmatch 09/20/16 09/21/16 09/21/16 23:51 03:30 04:44 WBC RBC Hgb Hct MCV MCH MCHC RDW Plt Count Lymph % (Auto) [place] % (Auto) Lymph # [place] # Baso # Seg Neutrophils % Seg Neuts % (Manual) Lymphocytes % (Manual) Monocytes % (Manual) Eosinophils % (Manual) Basophils % (Manual) Nucleated RBC % Seg Neutrophils # Seg Neutrophils # Man Lymphocytes # (Manual) Monocytes # (Manual) Eosinophils # (Manual) PT INR Fibrinogen dRVVT Confirm Interp Factor V Activity POC ABG pH POC ABG pCO2 POC ABG pO2 ABG pO2 ABG HCO3 ABG Base Excess ABG Hemoglobin Oxyhemoglobin Sodium Potassium Chloride Carbon Dioxide BUN Creatinine Glucose POC Glucose 114 H 141 H Lactic Acid Calcium Phosphorus Magnesium 2.70 H Direct Bilirubin AST ALT Alkaline Phosphatase Lactate Dehydrogenase Troponin T C-Reactive Protein Total Protein Albumin Prealbumin Triglycerides Cholesterol LDL Cholesterol Direct HDL Cholesterol Urine pH Urine WBC (Auto) Urine Creatinine Urine Total Protein Fluid Total Protein Vancomycin Trough Rheumatoid Factor Complement C4 Miscellaneous Test Crossmatch 09/21/16 09/21/16 09/21/16 07:45 07:45 10:01 WBC 13.8 H RBC 2.94 L Hgb 7.5 L Hct 23.5 L MCV MCH 26 L MCHC RDW 21.2 H Plt Count Lymph % (Auto) 6.9 L [place] % (Auto) 9.4 H Lymph # 0.9 L [place] # 1.3 H Baso # Seg Neutrophils % 83.2 H Seg Neuts % (Manual) Lymphocytes % (Manual) Monocytes % (Manual) Eosinophils % (Manual) Basophils % (Manual) Nucleated RBC % Seg Neutrophils # 11.5 H Seg Neutrophils # Man Lymphocytes # (Manual) Monocytes # (Manual) Eosinophils # (Manual) PT INR Fibrinogen dRVVT Confirm Interp Factor V Activity POC ABG pH 7.308 L POC ABG pCO2 31.9 L POC ABG pO2 148 H ABG pO2 ABG HCO3 ABG Base Excess ABG Hemoglobin Oxyhemoglobin Sodium 147 H Potassium Chloride 114.2 H Carbon Dioxide 15 L BUN 120 H Creatinine 3.9 H Glucose 156 H POC Glucose Lactic Acid Calcium 8.2 L Phosphorus Magnesium Direct Bilirubin AST ALT Alkaline Phosphatase Lactate Dehydrogenase Troponin T C-Reactive Protein Total Protein Albumin Prealbumin Triglycerides Cholesterol LDL Cholesterol Direct HDL Cholesterol Urine pH Urine WBC (Auto) Urine Creatinine Urine Total Protein Fluid Total Protein Vancomycin Trough Rheumatoid Factor Complement C4 Miscellaneous Test Crossmatch 09/21/16 09/21/16 09/21/16 12:00 12:03 13:00 WBC RBC Hgb Hct MCV MCH MCHC RDW Plt Count Lymph % (Auto) [place] % (Auto) Lymph # [place] # Baso # Seg Neutrophils % Seg Neuts % (Manual) Lymphocytes % (Manual) Monocytes % (Manual) Eosinophils % (Manual) Basophils % (Manual) Nucleated RBC % Seg Neutrophils # Seg Neutrophils # Man Lymphocytes # (Manual) Monocytes # (Manual) Eosinophils # (Manual) PT INR Fibrinogen dRVVT Confirm Interp Factor V Activity POC ABG pH POC ABG pCO2 POC ABG pO2 ABG pO2 ABG HCO3 ABG Base Excess ABG Hemoglobin Oxyhemoglobin Sodium Potassium Chloride Carbon Dioxide BUN Creatinine Glucose POC Glucose 163 H Lactic Acid Calcium Phosphorus Magnesium Direct Bilirubin AST ALT Alkaline Phosphatase Lactate Dehydrogenase Troponin T C-Reactive Protein Total Protein Albumin Prealbumin Triglycerides Cholesterol LDL Cholesterol Direct HDL Cholesterol Urine pH Urine WBC (Auto) Urine Creatinine 54.8 H Urine Total Protein Fluid Total Protein Vancomycin Trough 2.3 L Rheumatoid Factor Complement C4 Miscellaneous Test Crossmatch 09/21/16 09/21/16 09/22/16 16:51 23:17 06:27 WBC RBC Hgb Hct MCV MCH MCHC RDW Plt Count Lymph % (Auto) [place] % (Auto) Lymph # [place] # Baso # Seg Neutrophils % Seg Neuts % (Manual) Lymphocytes % (Manual) Monocytes % (Manual) Eosinophils % (Manual) Basophils % (Manual) Nucleated RBC % Seg Neutrophils # Seg Neutrophils # Man Lymphocytes # (Manual) Monocytes # (Manual) Eosinophils # (Manual) PT INR Fibrinogen dRVVT Confirm Interp Factor V Activity POC ABG pH POC ABG pCO2 POC ABG pO2 ABG pO2 ABG HCO3 ABG Base Excess ABG Hemoglobin Oxyhemoglobin Sodium Potassium Chloride Carbon Dioxide BUN Creatinine Glucose POC Glucose 206 H 114 H 115 H Lactic Acid Calcium Phosphorus Magnesium Direct Bilirubin AST ALT Alkaline Phosphatase Lactate Dehydrogenase Troponin T C-Reactive Protein Total Protein Albumin Prealbumin Triglycerides Cholesterol LDL Cholesterol Direct HDL Cholesterol Urine pH Urine WBC (Auto) Urine Creatinine Urine Total Protein Fluid Total Protein Vancomycin Trough Rheumatoid Factor Complement C4 Miscellaneous Test Crossmatch 09/22/16 09/22/16 09/22/16 07:50 07:50 12:00 WBC 17.8 H RBC 3.04 L Hgb 8.0 L Hct 24.7 L MCV MCH 26 L MCHC RDW 21.6 H Plt Count Lymph % (Auto) [place] % (Auto) Lymph # [place] # Baso # Seg Neutrophils % Seg Neuts % (Manual) Lymphocytes % (Manual) Monocytes % (Manual) Eosinophils % (Manual) Basophils % (Manual) Nucleated RBC % Seg Neutrophils # Seg Neutrophils # Man Lymphocytes # (Manual) Monocytes # (Manual) Eosinophils # (Manual) PT INR Fibrinogen dRVVT Confirm Interp Factor V Activity POC ABG pH POC ABG pCO2 POC ABG pO2 ABG pO2 ABG HCO3 ABG Base Excess ABG Hemoglobin Oxyhemoglobin Sodium 150 H Potassium Chloride 118.2 H Carbon Dioxide 14 L BUN 111 H Creatinine 3.7 H Glucose 157 H POC Glucose 183 H Lactic Acid Calcium Phosphorus Magnesium Direct Bilirubin AST ALT Alkaline Phosphatase Lactate Dehydrogenase Troponin T C-Reactive Protein Total Protein Albumin Prealbumin Triglycerides Cholesterol LDL Cholesterol Direct HDL Cholesterol Urine pH Urine WBC (Auto) Urine Creatinine Urine Total Protein Fluid Total Protein Vancomycin Trough Rheumatoid Factor Complement C4 Miscellaneous Test Crossmatch 09/22/16 09/22/16 09/23/16 17:29 23:10 05:00 WBC 19.2 H RBC 3.13 L Hgb 8.0 L Hct 25.2 L MCV MCH 26 L MCHC RDW 22.1 H Plt Count Lymph % (Auto) [place] % (Auto) Lymph # [place] # Baso # Seg Neutrophils % Seg Neuts % (Manual) 92.0 H Lymphocytes % (Manual) 3.0 L Monocytes % (Manual) Eosinophils % (Manual) Basophils % (Manual) Nucleated RBC % Seg Neutrophils # Seg Neutrophils # Man 17.7 H Lymphocytes # (Manual) 0.6 L Monocytes # (Manual) Eosinophils # (Manual) PT INR Fibrinogen dRVVT Confirm Interp Factor V Activity POC ABG pH POC ABG pCO2 POC ABG pO2 ABG pO2 ABG HCO3 ABG Base Excess ABG Hemoglobin Oxyhemoglobin Sodium Potassium Chloride Carbon Dioxide BUN Creatinine Glucose POC Glucose 197 H 169 H Lactic Acid Calcium Phosphorus Magnesium Direct Bilirubin AST ALT Alkaline Phosphatase Lactate Dehydrogenase Troponin T C-Reactive Protein Total Protein Albumin Prealbumin Triglycerides Cholesterol LDL Cholesterol Direct HDL Cholesterol Urine pH Urine WBC (Auto) Urine Creatinine Urine Total Protein Fluid Total Protein Vancomycin Trough Rheumatoid Factor Complement C4 Miscellaneous Test Crossmatch 09/23/16 09/23/16 09/23/16 05:00 05:00 05:10 WBC RBC Hgb Hct MCV MCH MCHC RDW Plt Count Lymph % (Auto) [place] % (Auto) Lymph # [place] # Baso # Seg Neutrophils % Seg Neuts % (Manual) Lymphocytes % (Manual) Monocytes % (Manual) Eosinophils % (Manual) Basophils % (Manual) Nucleated RBC % Seg Neutrophils # Seg Neutrophils # Man Lymphocytes # (Manual) Monocytes # (Manual) Eosinophils # (Manual) PT INR Fibrinogen dRVVT Confirm Interp Factor V Activity POC ABG pH POC ABG pCO2 POC ABG pO2 ABG pO2 ABG HCO3 ABG Base Excess ABG Hemoglobin Oxyhemoglobin Sodium 147 H Potassium 3.2 L Chloride 115.7 H Carbon Dioxide 13 L BUN 111 H Creatinine 3.8 H Glucose 194 H POC Glucose 188 H Lactic Acid Calcium 7.3 L D Phosphorus Magnesium Direct Bilirubin AST ALT Alkaline Phosphatase Lactate Dehydrogenase Troponin T C-Reactive Protein 3.20 H Total Protein Albumin Prealbumin Triglycerides Cholesterol LDL Cholesterol Direct HDL Cholesterol Urine pH Urine WBC (Auto) Urine Creatinine Urine Total Protein Fluid Total Protein Vancomycin Trough Rheumatoid Factor Complement C4 Miscellaneous Test Crossmatch 09/23/16 09/23/16 09/23/16 11:37 12:29 18:01 WBC RBC Hgb Hct MCV MCH MCHC RDW Plt Count Lymph % (Auto) [place] % (Auto) Lymph # [place] # Baso # Seg Neutrophils % Seg Neuts % (Manual) Lymphocytes % (Manual) Monocytes % (Manual) Eosinophils % (Manual) Basophils % (Manual) Nucleated RBC % Seg Neutrophils # Seg Neutrophils # Man Lymphocytes # (Manual) Monocytes # (Manual) Eosinophils # (Manual) PT INR Fibrinogen dRVVT Confirm Interp Factor V Activity POC ABG pH POC ABG pCO2 18.9 L POC ABG pO2 143 H ABG pO2 ABG HCO3 ABG Base Excess ABG Hemoglobin Oxyhemoglobin Sodium Potassium Chloride Carbon Dioxide BUN Creatinine Glucose POC Glucose 153 H 108 H Lactic Acid Calcium Phosphorus Magnesium Direct Bilirubin AST ALT Alkaline Phosphatase Lactate Dehydrogenase Troponin T C-Reactive Protein Total Protein Albumin Prealbumin Triglycerides Cholesterol LDL Cholesterol Direct HDL Cholesterol Urine pH Urine WBC (Auto) Urine Creatinine Urine Total Protein Fluid Total Protein Vancomycin Trough Rheumatoid Factor Complement C4 Miscellaneous Test Crossmatch 09/23/16 09/23/16 09/24/16 21:19 23:43 05:16 WBC RBC Hgb Hct MCV MCH MCHC RDW Plt Count Lymph % (Auto) [place] % (Auto) Lymph # [place] # Baso # Seg Neutrophils % Seg Neuts % (Manual) Lymphocytes % (Manual) Monocytes % (Manual) Eosinophils % (Manual) Basophils % (Manual) Nucleated RBC % Seg Neutrophils # Seg Neutrophils # Man Lymphocytes # (Manual) Monocytes # (Manual) Eosinophils # (Manual) PT INR Fibrinogen dRVVT Confirm Interp Factor V Activity POC ABG pH POC ABG pCO2 17.3 L POC ABG pO2 112 H ABG pO2 ABG HCO3 ABG Base Excess ABG Hemoglobin Oxyhemoglobin Sodium Potassium Chloride Carbon Dioxide BUN Creatinine Glucose POC Glucose 143 H 164 H Lactic Acid Calcium Phosphorus Magnesium Direct Bilirubin AST ALT Alkaline Phosphatase Lactate Dehydrogenase Troponin T C-Reactive Protein Total Protein Albumin Prealbumin Triglycerides Cholesterol LDL Cholesterol Direct HDL Cholesterol Urine pH Urine WBC (Auto) Urine Creatinine Urine Total Protein Fluid Total Protein Vancomycin Trough Rheumatoid Factor Complement C4 Miscellaneous Test Crossmatch 09/24/16 09/24/16 09/24/16 05:21 11:58 17:06 WBC RBC Hgb Hct MCV MCH MCHC RDW Plt Count Lymph % (Auto) [place] % (Auto) Lymph # [place] # Baso # Seg Neutrophils % Seg Neuts % (Manual) Lymphocytes % (Manual) Monocytes % (Manual) Eosinophils % (Manual) Basophils % (Manual) Nucleated RBC % Seg Neutrophils # Seg Neutrophils # Man Lymphocytes # (Manual) Monocytes # (Manual) Eosinophils # (Manual) PT INR Fibrinogen dRVVT Confirm Interp Factor V Activity POC ABG pH POC ABG pCO2 POC ABG pO2 ABG pO2 ABG HCO3 ABG Base Excess ABG Hemoglobin Oxyhemoglobin Sodium Potassium Chloride Carbon Dioxide 10 L BUN 103 H Creatinine 4.3 H Glucose 163 H POC Glucose 173 H 167 H Lactic Acid Calcium 6.5 L Phosphorus Magnesium Direct Bilirubin AST ALT Alkaline Phosphatase Lactate Dehydrogenase Troponin T C-Reactive Protein Total Protein Albumin Prealbumin Triglycerides Cholesterol LDL Cholesterol Direct HDL Cholesterol Urine pH Urine WBC (Auto) Urine Creatinine Urine Total Protein Fluid Total Protein Vancomycin Trough Rheumatoid Factor Complement C4 Miscellaneous Test Crossmatch 09/24/16 09/24/16 09/24/16 20:15 21:02 23:48 WBC RBC Hgb Hct MCV MCH MCHC RDW Plt Count Lymph % (Auto) [place] % (Auto) Lymph # [place] # Baso # Seg Neutrophils % Seg Neuts % (Manual) Lymphocytes % (Manual) Monocytes % (Manual) Eosinophils % (Manual) Basophils % (Manual) Nucleated RBC % Seg Neutrophils # Seg Neutrophils # Man Lymphocytes # (Manual) Monocytes # (Manual) Eosinophils # (Manual) PT INR Fibrinogen dRVVT Confirm Interp Factor V Activity POC ABG pH 7.288 L POC ABG pCO2 30.2 L 21.5 L POC ABG pO2 32 L 39 L ABG pO2 ABG HCO3 ABG Base Excess ABG Hemoglobin Oxyhemoglobin Sodium Potassium Chloride Carbon Dioxide BUN Creatinine Glucose POC Glucose 109 H Lactic Acid Calcium Phosphorus Magnesium Direct Bilirubin AST ALT Alkaline Phosphatase Lactate Dehydrogenase Troponin T C-Reactive Protein Total Protein Albumin Prealbumin Triglycerides Cholesterol LDL Cholesterol Direct HDL Cholesterol Urine pH Urine WBC (Auto) Urine Creatinine Urine Total Protein Fluid Total Protein Vancomycin Trough Rheumatoid Factor Complement C4 Miscellaneous Test Crossmatch 09/25/16 09/25/16 09/25/16 04:20 04:20 04:20 WBC RBC 2.58 L Hgb 7.0 L Hct 21.0 L MCV MCH 27 L MCHC RDW 23.8 H Plt Count Lymph % (Auto) [place] % (Auto) Lymph # [place] # Baso # Seg Neutrophils % Seg Neuts % (Manual) Lymphocytes % (Manual) 12.0 L Monocytes % (Manual) Eosinophils % (Manual) 7.0 H Basophils % (Manual) 2.0 H Nucleated RBC % Seg Neutrophils # Seg Neutrophils # Man Lymphocytes # (Manual) 0.9 L Monocytes # (Manual) Eosinophils # (Manual) 0.5 H PT INR Fibrinogen dRVVT Confirm Interp Factor V Activity POC ABG pH POC ABG pCO2 POC ABG pO2 ABG pO2 ABG HCO3 ABG Base Excess ABG Hemoglobin Oxyhemoglobin Sodium Potassium Chloride Carbon Dioxide 15 L BUN 72 H Creatinine 3.8 H Glucose POC Glucose Lactic Acid Calcium 6.0 L Phosphorus 4.60 H Magnesium 1.60 L Direct Bilirubin AST ALT Alkaline Phosphatase Lactate Dehydrogenase Troponin T C-Reactive Protein Total Protein Albumin Prealbumin Triglycerides Cholesterol LDL Cholesterol Direct HDL Cholesterol Urine pH Urine WBC (Auto) Urine Creatinine Urine Total Protein Fluid Total Protein Vancomycin Trough Rheumatoid Factor Complement C4 Miscellaneous Test Crossmatch 09/25/16 09/25/16 09/25/16 04:57 08:02 10:30 WBC RBC Hgb Hct MCV MCH MCHC RDW Plt Count Lymph % (Auto) [place] % (Auto) Lymph # [place] # Baso # Seg Neutrophils % Seg Neuts % (Manual) Lymphocytes % (Manual) Monocytes % (Manual) Eosinophils % (Manual) Basophils % (Manual) Nucleated RBC % Seg Neutrophils # Seg Neutrophils # Man Lymphocytes # (Manual) Monocytes # (Manual) Eosinophils # (Manual) PT INR Fibrinogen dRVVT Confirm Interp Factor V Activity POC ABG pH POC ABG pCO2 24.7 L POC ABG pO2 152 H ABG pO2 ABG HCO3 ABG Base Excess ABG Hemoglobin Oxyhemoglobin Sodium Potassium Chloride Carbon Dioxide BUN Creatinine Glucose POC Glucose 113 H Lactic Acid Calcium Phosphorus Magnesium Direct Bilirubin AST ALT Alkaline Phosphatase Lactate Dehydrogenase Troponin T C-Reactive Protein Total Protein Albumin Prealbumin Triglycerides Cholesterol LDL Cholesterol Direct HDL Cholesterol Urine pH Urine WBC (Auto) Urine Creatinine Urine Total Protein Fluid Total Protein Vancomycin Trough Rheumatoid Factor Complement C4 Miscellaneous Test Crossmatch See Detail 09/25/16 09/25/16 09/25/16 12:05 17:44 23:47 WBC RBC Hgb Hct MCV MCH MCHC RDW Plt Count Lymph % (Auto) [place] % (Auto) Lymph # [place] # Baso # Seg Neutrophils % Seg Neuts % (Manual) Lymphocytes % (Manual) Monocytes % (Manual) Eosinophils % (Manual) Basophils % (Manual) Nucleated RBC % Seg Neutrophils # Seg Neutrophils # Man Lymphocytes # (Manual) Monocytes # (Manual) Eosinophils # (Manual) PT INR Fibrinogen dRVVT Confirm Interp Factor V Activity POC ABG pH POC ABG pCO2 POC ABG pO2 ABG pO2 ABG HCO3 ABG Base Excess ABG Hemoglobin Oxyhemoglobin Sodium Potassium Chloride Carbon Dioxide BUN Creatinine Glucose POC Glucose 117 H 119 H 150 H Lactic Acid Calcium Phosphorus Magnesium Direct Bilirubin AST ALT Alkaline Phosphatase Lactate Dehydrogenase Troponin T C-Reactive Protein Total Protein Albumin Prealbumin Triglycerides Cholesterol LDL Cholesterol Direct HDL Cholesterol Urine pH Urine WBC (Auto) Urine Creatinine Urine Total Protein Fluid Total Protein Vancomycin Trough Rheumatoid Factor Complement C4 Miscellaneous Test Crossmatch 09/26/16 09/26/16 09/26/16 04:25 04:25 04:25 WBC RBC 2.65 L Hgb 7.4 L Hct 21.6 L MCV MCH MCHC RDW 22.5 H Plt Count Lymph % (Auto) [place] % (Auto) Lymph # [place] # Baso # Seg Neutrophils % Seg Neuts % (Manual) Lymphocytes % (Manual) 6.0 L Monocytes % (Manual) Eosinophils % (Manual) 11.0 H Basophils % (Manual) Nucleated RBC % Seg Neutrophils # Seg Neutrophils # Man Lymphocytes # (Manual) 0.4 L Monocytes # (Manual) Eosinophils # (Manual) 0.6 H PT INR Fibrinogen dRVVT Confirm Interp Factor V Activity POC ABG pH POC ABG pCO2 POC ABG pO2 ABG pO2 ABG HCO3 ABG Base Excess ABG Hemoglobin Oxyhemoglobin Sodium Potassium Chloride 97.0 L Carbon Dioxide 19 L BUN 43 H Creatinine 2.6 H Glucose 130 H POC Glucose Lactic Acid 4.40 H* Calcium 6.7 L Phosphorus Magnesium Direct Bilirubin AST ALT Alkaline Phosphatase Lactate Dehydrogenase Troponin T C-Reactive Protein Total Protein Albumin Prealbumin Triglycerides Cholesterol LDL Cholesterol Direct HDL Cholesterol Urine pH Urine WBC (Auto) Urine Creatinine Urine Total Protein Fluid Total Protein Vancomycin Trough Rheumatoid Factor Complement C4 Miscellaneous Test Crossmatch 09/26/16 09/26/16 09/26/16 05:20 11:44 12:12 WBC RBC Hgb Hct MCV MCH MCHC RDW Plt Count Lymph % (Auto) [place] % (Auto) Lymph # [place] # Baso # Seg Neutrophils % Seg Neuts % (Manual) Lymphocytes % (Manual) Monocytes % (Manual) Eosinophils % (Manual) Basophils % (Manual) Nucleated RBC % Seg Neutrophils # Seg Neutrophils # Man Lymphocytes # (Manual) Monocytes # (Manual) Eosinophils # (Manual) PT INR Fibrinogen dRVVT Confirm Interp Factor V Activity POC ABG pH POC ABG pCO2 27.0 L POC ABG pO2 69 L ABG pO2 ABG HCO3 ABG Base Excess ABG Hemoglobin Oxyhemoglobin Sodium Potassium Chloride Carbon Dioxide BUN Creatinine Glucose POC Glucose 121 H 128 H Lactic Acid Calcium Phosphorus Magnesium Direct Bilirubin AST ALT Alkaline Phosphatase Lactate Dehydrogenase Troponin T C-Reactive Protein Total Protein Albumin Prealbumin Triglycerides Cholesterol LDL Cholesterol Direct HDL Cholesterol Urine pH Urine WBC (Auto) Urine Creatinine Urine Total Protein Fluid Total Protein Vancomycin Trough Rheumatoid Factor Complement C4 Miscellaneous Test Crossmatch 09/26/16 09/26/16 09/27/16 18:31 23:40 08:20 WBC RBC Hgb Hct MCV MCH MCHC RDW Plt Count Lymph % (Auto) [place] % (Auto) Lymph # [place] # Baso # Seg Neutrophils % Seg Neuts % (Manual) Lymphocytes % (Manual) Monocytes % (Manual) Eosinophils % (Manual) Basophils % (Manual) Nucleated RBC % Seg Neutrophils # Seg Neutrophils # Man Lymphocytes # (Manual) Monocytes # (Manual) Eosinophils # (Manual) PT INR Fibrinogen dRVVT Confirm Interp Factor V Activity POC ABG pH POC ABG pCO2 POC ABG pO2 ABG pO2 ABG HCO3 ABG Base Excess ABG Hemoglobin Oxyhemoglobin Sodium Potassium Chloride Carbon Dioxide BUN Creatinine Glucose POC Glucose 120 H 133 H Lactic Acid 4.10 H* Calcium Phosphorus Magnesium Direct Bilirubin AST ALT Alkaline Phosphatase Lactate Dehydrogenase Troponin T C-Reactive Protein Total Protein Albumin Prealbumin Triglycerides Cholesterol LDL Cholesterol Direct HDL Cholesterol Urine pH Urine WBC (Auto) Urine Creatinine Urine Total Protein Fluid Total Protein Vancomycin Trough Rheumatoid Factor Complement C4 Miscellaneous Test Crossmatch 09/27/16 09/27/16 09/27/16 11:23 15:00 18:15 WBC RBC Hgb Hct MCV MCH MCHC RDW Plt Count Lymph % (Auto) [place] % (Auto) Lymph # [place] # Baso # Seg Neutrophils % Seg Neuts % (Manual) Lymphocytes % (Manual) Monocytes % (Manual) Eosinophils % (Manual) Basophils % (Manual) Nucleated RBC % Seg Neutrophils # Seg Neutrophils # Man Lymphocytes # (Manual) Monocytes # (Manual) Eosinophils # (Manual) PT INR Fibrinogen dRVVT Confirm Interp Factor V Activity POC ABG pH 7.459 H POC ABG pCO2 27.1 L POC ABG pO2 140 H ABG pO2 ABG HCO3 ABG Base Excess ABG Hemoglobin Oxyhemoglobin Sodium Potassium Chloride Carbon Dioxide BUN Creatinine Glucose POC Glucose 114 H 127 H Lactic Acid Calcium Phosphorus Magnesium Direct Bilirubin AST ALT Alkaline Phosphatase Lactate Dehydrogenase Troponin T C-Reactive Protein Total Protein Albumin Prealbumin Triglycerides Cholesterol LDL Cholesterol Direct HDL Cholesterol Urine pH Urine WBC (Auto) Urine Creatinine Urine Total Protein Fluid Total Protein Vancomycin Trough Rheumatoid Factor Complement C4 Miscellaneous Test Crossmatch 09/27/16 09/27/16 09/28/16 Unknown Unknown 03:45 WBC RBC 2.49 L Hgb 6.8 L Hct 20.7 L MCV MCH 27 L MCHC RDW 22.1 H Plt Count Lymph % (Auto) [place] % (Auto) Lymph # [place] # Baso # Seg Neutrophils % Seg Neuts % (Manual) 32.0 L Lymphocytes % (Manual) 12.0 L Monocytes % (Manual) 11.0 H Eosinophils % (Manual) 10.0 H Basophils % (Manual) Nucleated RBC % Seg Neutrophils # Seg Neutrophils # Man Lymphocytes # (Manual) 1.0 L Monocytes # (Manual) 0.9 H Eosinophils # (Manual) 0.8 H PT INR Fibrinogen dRVVT Confirm Interp Factor V Activity POC ABG pH POC ABG pCO2 POC ABG pO2 ABG pO2 ABG HCO3 ABG Base Excess ABG Hemoglobin Oxyhemoglobin Sodium 135 L 135 L Potassium 3.5 L Chloride 93.6 L 94.4 L Carbon Dioxide 17 L 21 L BUN 45 H 28 H Creatinine 3.3 H 2.5 H Glucose 106 H POC Glucose Lactic Acid Calcium 7.3 L 7.1 L Phosphorus Magnesium Direct Bilirubin AST ALT Alkaline Phosphatase Lactate Dehydrogenase Troponin T C-Reactive Protein Total Protein Albumin Prealbumin Triglycerides Cholesterol LDL Cholesterol Direct HDL Cholesterol Urine pH Urine WBC (Auto) Urine Creatinine Urine Total Protein Fluid Total Protein Vancomycin Trough Rheumatoid Factor Complement C4 Miscellaneous Test Crossmatch 09/28/16 09/28/16 09/28/16 03:45 07:25 11:58 WBC 13.3 H RBC 3.01 L Hgb 8.4 L Hct 25.0 L MCV MCH MCHC RDW 20.5 H Plt Count 128 L Lymph % (Auto) [place] % (Auto) Lymph # [place] # Baso # Seg Neutrophils % Seg Neuts % (Manual) Lymphocytes % (Manual) 7.0 L Monocytes % (Manual) Eosinophils % (Manual) 6.0 H Basophils % (Manual) Nucleated RBC % Seg Neutrophils # Seg Neutrophils # Man Lymphocytes # (Manual) 0.9 L Monocytes # (Manual) Eosinophils # (Manual) 0.8 H PT INR Fibrinogen dRVVT Confirm Interp Factor V Activity POC ABG pH POC ABG pCO2 POC ABG pO2 ABG pO2 ABG HCO3 ABG Base Excess ABG Hemoglobin Oxyhemoglobin Sodium Potassium Chloride Carbon Dioxide BUN Creatinine Glucose POC Glucose 121 H Lactic Acid 4.50 H* Calcium Phosphorus Magnesium Direct Bilirubin AST ALT Alkaline Phosphatase Lactate Dehydrogenase Troponin T C-Reactive Protein Total Protein Albumin Prealbumin Triglycerides Cholesterol LDL Cholesterol Direct HDL Cholesterol Urine pH Urine WBC (Auto) Urine Creatinine Urine Total Protein Fluid Total Protein Vancomycin Trough Rheumatoid Factor Complement C4 Miscellaneous Test Crossmatch 09/29/16 09/29/16 09/29/16 06:45 06:45 06:45 WBC 14.9 H RBC 2.74 L Hgb 7.6 L Hct 23.2 L MCV MCH MCHC RDW 20.5 H Plt Count 81 L Lymph % (Auto) [place] % (Auto) Lymph # [place] # Baso # Seg Neutrophils % Seg Neuts % (Manual) 81.0 H Lymphocytes % (Manual) 4.0 L Monocytes % (Manual) Eosinophils % (Manual) Basophils % (Manual) Nucleated RBC % Seg Neutrophils # Seg Neutrophils # Man 12.1 H Lymphocytes # (Manual) 0.6 L Monocytes # (Manual) Eosinophils # (Manual) PT INR Fibrinogen dRVVT Confirm Interp Factor V Activity POC ABG pH POC ABG pCO2 POC ABG pO2 ABG pO2 ABG HCO3 ABG Base Excess ABG Hemoglobin Oxyhemoglobin Sodium 133 L Potassium 3.4 L Chloride 92.5 L Carbon Dioxide 21 L BUN 33 H Creatinine 3.0 H Glucose POC Glucose Lactic Acid Calcium 6.6 L Phosphorus Magnesium 1.40 L Direct Bilirubin 0.9 H AST ALT Alkaline Phosphatase Lactate Dehydrogenase Troponin T C-Reactive Protein Total Protein 4.3 L Albumin 1.3 L Prealbumin Triglycerides Cholesterol LDL Cholesterol Direct HDL Cholesterol Urine pH Urine WBC (Auto) Urine Creatinine Urine Total Protein Fluid Total Protein Vancomycin Trough Rheumatoid Factor Complement C4 Miscellaneous Test Crossmatch 09/29/16 09/29/16 09/30/16 17:52 20:12 00:07 WBC RBC Hgb Hct MCV MCH MCHC RDW Plt Count Lymph % (Auto) [place] % (Auto) Lymph # [place] # Baso # Seg Neutrophils % Seg Neuts % (Manual) Lymphocytes % (Manual) Monocytes % (Manual) Eosinophils % (Manual) Basophils % (Manual) Nucleated RBC % Seg Neutrophils # Seg Neutrophils # Man Lymphocytes # (Manual) Monocytes # (Manual) Eosinophils # (Manual) PT INR Fibrinogen dRVVT Confirm Interp Factor V Activity POC ABG pH POC ABG pCO2 POC ABG pO2 ABG pO2 ABG HCO3 ABG Base Excess ABG Hemoglobin Oxyhemoglobin Sodium Potassium Chloride Carbon Dioxide BUN Creatinine Glucose POC Glucose 50 L 51 L Lactic Acid Calcium Phosphorus Magnesium Direct Bilirubin AST ALT Alkaline Phosphatase Lactate Dehydrogenase Troponin T 0.204 H* C-Reactive Protein Total Protein Albumin Prealbumin Triglycerides Cholesterol 31 L LDL Cholesterol Direct 4 L HDL Cholesterol 3 L Urine pH Urine WBC (Auto) Urine Creatinine Urine Total Protein Fluid Total Protein Vancomycin Trough Rheumatoid Factor Complement C4 Miscellaneous Test Crossmatch 09/30/16 09/30/16 09/30/16 01:30 05:15 06:10 WBC RBC Hgb Hct MCV MCH MCHC RDW Plt Count Lymph % (Auto) [place] % (Auto) Lymph # [place] # Baso # Seg Neutrophils % Seg Neuts % (Manual) Lymphocytes % (Manual) Monocytes % (Manual) Eosinophils % (Manual) Basophils % (Manual) Nucleated RBC % Seg Neutrophils # Seg Neutrophils # Man Lymphocytes # (Manual) Monocytes # (Manual) Eosinophils # (Manual) PT INR Fibrinogen dRVVT Confirm Interp Factor V Activity POC ABG pH POC ABG pCO2 POC ABG pO2 ABG pO2 ABG HCO3 ABG Base Excess ABG Hemoglobin Oxyhemoglobin Sodium 133 L Potassium 3.2 L Chloride 93.2 L Carbon Dioxide 19 L BUN 36 H Creatinine 3.2 H Glucose 104 H POC Glucose 167 H 146 H Lactic Acid Calcium 6.4 L Phosphorus Magnesium 1.60 L Direct Bilirubin AST ALT Alkaline Phosphatase Lactate Dehydrogenase Troponin T C-Reactive Protein Total Protein Albumin Prealbumin Triglycerides Cholesterol LDL Cholesterol Direct HDL Cholesterol Urine pH Urine WBC (Auto) Urine Creatinine Urine Total Protein Fluid Total Protein Vancomycin Trough Rheumatoid Factor Complement C4 Miscellaneous Test Crossmatch 09/30/16 09/30/16 09/30/16 11:26 13:39 18:38 WBC RBC Hgb Hct MCV MCH MCHC RDW Plt Count Lymph % (Auto) [place] % (Auto) Lymph # [place] # Baso # Seg Neutrophils % Seg Neuts % (Manual) Lymphocytes % (Manual) Monocytes % (Manual) Eosinophils % (Manual) Basophils % (Manual) Nucleated RBC % Seg Neutrophils # Seg Neutrophils # Man Lymphocytes # (Manual) Monocytes # (Manual) Eosinophils # (Manual) PT INR Fibrinogen dRVVT Confirm Interp Factor V Activity POC ABG pH 7.479 H POC ABG pCO2 29.8 L POC ABG pO2 117 H ABG pO2 ABG HCO3 ABG Base Excess ABG Hemoglobin Oxyhemoglobin Sodium Potassium Chloride Carbon Dioxide BUN Creatinine Glucose POC Glucose 140 H 122 H Lactic Acid Calcium Phosphorus Magnesium Direct Bilirubin AST ALT Alkaline Phosphatase Lactate Dehydrogenase Troponin T C-Reactive Protein Total Protein Albumin Prealbumin Triglycerides Cholesterol LDL Cholesterol Direct HDL Cholesterol Urine pH Urine WBC (Auto) Urine Creatinine Urine Total Protein Fluid Total Protein Vancomycin Trough Rheumatoid Factor Complement C4 Miscellaneous Test Crossmatch 10/01/16 10/01/16 10/01/16 06:00 06:00 12:37 WBC 12.6 H RBC 2.75 L Hgb 7.3 L Hct 23.3 L MCV MCH 27 L MCHC RDW 20.6 H Plt Count 72 L Lymph % (Auto) [place] % (Auto) Lymph # [place] # Baso # Seg Neutrophils % Seg Neuts % (Manual) 31.0 L Lymphocytes % (Manual) 8.0 L Monocytes % (Manual) Eosinophils % (Manual) Basophils % (Manual) Nucleated RBC % 3.0 H Seg Neutrophils # Seg Neutrophils # Man Lymphocytes # (Manual) 1.0 L Monocytes # (Manual) Eosinophils # (Manual) PT INR Fibrinogen dRVVT Confirm Interp Factor V Activity POC ABG pH POC ABG pCO2 POC ABG pO2 ABG pO2 ABG HCO3 ABG Base Excess ABG Hemoglobin Oxyhemoglobin Sodium 127 L Potassium Chloride 86.8 L Carbon Dioxide 20 L BUN 42 H Creatinine 3.5 H Glucose POC Glucose 65 L Lactic Acid Calcium 7.0 L Phosphorus Magnesium Direct Bilirubin AST ALT Alkaline Phosphatase Lactate Dehydrogenase Troponin T C-Reactive Protein Total Protein Albumin Prealbumin Triglycerides Cholesterol LDL Cholesterol Direct HDL Cholesterol Urine pH Urine WBC (Auto) Urine Creatinine Urine Total Protein Fluid Total Protein Vancomycin Trough Rheumatoid Factor Complement C4 Miscellaneous Test Crossmatch 10/01/16 10/01/16 10/02/16 17:39 23:32 00:59 WBC RBC Hgb Hct MCV MCH MCHC RDW Plt Count Lymph % (Auto) [place] % (Auto) Lymph # [place] # Baso # Seg Neutrophils % Seg Neuts % (Manual) Lymphocytes % (Manual) Monocytes % (Manual) Eosinophils % (Manual) Basophils % (Manual) Nucleated RBC % Seg Neutrophils # Seg Neutrophils # Man Lymphocytes # (Manual) Monocytes # (Manual) Eosinophils # (Manual) PT INR Fibrinogen dRVVT Confirm Interp Factor V Activity POC ABG pH POC ABG pCO2 POC ABG pO2 ABG pO2 ABG HCO3 ABG Base Excess ABG Hemoglobin Oxyhemoglobin Sodium Potassium Chloride Carbon Dioxide BUN Creatinine Glucose POC Glucose 107 H 52 L 145 H Lactic Acid Calcium Phosphorus Magnesium Direct Bilirubin AST ALT Alkaline Phosphatase Lactate Dehydrogenase Troponin T C-Reactive Protein Total Protein Albumin Prealbumin Triglycerides Cholesterol LDL Cholesterol Direct HDL Cholesterol Urine pH Urine WBC (Auto) Urine Creatinine Urine Total Protein Fluid Total Protein Vancomycin Trough Rheumatoid Factor Complement C4 Miscellaneous Test Crossmatch 10/02/16 10/02/16 10/02/16 10:30 10:50 10:50 WBC 14.7 H RBC 2.76 L Hgb 7.4 L Hct 23.6 L MCV MCH 27 L MCHC RDW 20.2 H Plt Count 79 L Lymph % (Auto) [place] % (Auto) Lymph # [place] # Baso # Seg Neutrophils % Seg Neuts % (Manual) 86.0 H Lymphocytes % (Manual) 6.0 L Monocytes % (Manual) Eosinophils % (Manual) Basophils % (Manual) Nucleated RBC % Seg Neutrophils # Seg Neutrophils # Man 12.6 H Lymphocytes # (Manual) 0.9 L Monocytes # (Manual) Eosinophils # (Manual) PT INR Fibrinogen dRVVT Confirm Interp Factor V Activity POC ABG pH 7.486 H POC ABG pCO2 30.1 L POC ABG pO2 108 H ABG pO2 ABG HCO3 ABG Base Excess ABG Hemoglobin Oxyhemoglobin Sodium 131 L Potassium 3.4 L Chloride 89.9 L Carbon Dioxide BUN 26 H Creatinine 2.6 H Glucose POC Glucose Lactic Acid Calcium 7.0 L Phosphorus Magnesium Direct Bilirubin AST ALT Alkaline Phosphatase Lactate Dehydrogenase Troponin T C-Reactive Protein Total Protein Albumin Prealbumin Triglycerides Cholesterol LDL Cholesterol Direct HDL Cholesterol Urine pH Urine WBC (Auto) Urine Creatinine Urine Total Protein Fluid Total Protein Vancomycin Trough Rheumatoid Factor Complement C4 Miscellaneous Test Crossmatch 10/02/16 10/03/16 10/03/16 23:45 00:45 05:10 WBC 12.9 H RBC 2.77 L Hgb 7.6 L Hct 23.7 L MCV MCH 27 L MCHC RDW 19.7 H Plt Count 89 L Lymph % (Auto) [place] % (Auto) Lymph # [place] # Baso # Seg Neutrophils % Seg Neuts % (Manual) Lymphocytes % (Manual) 8.0 L Monocytes % (Manual) Eosinophils % (Manual) Basophils % (Manual) Nucleated RBC % Seg Neutrophils # 11.9 H Seg Neutrophils # Man Lymphocytes # (Manual) 1.0 L Monocytes # (Manual) Eosinophils # (Manual) PT INR Fibrinogen dRVVT Confirm Interp Factor V Activity POC ABG pH POC ABG pCO2 POC ABG pO2 ABG pO2 ABG HCO3 ABG Base Excess ABG Hemoglobin Oxyhemoglobin Sodium Potassium Chloride Carbon Dioxide BUN Creatinine Glucose POC Glucose 55 L 199 H Lactic Acid Calcium Phosphorus Magnesium Direct Bilirubin AST ALT Alkaline Phosphatase Lactate Dehydrogenase Troponin T C-Reactive Protein Total Protein Albumin Prealbumin Triglycerides Cholesterol LDL Cholesterol Direct HDL Cholesterol Urine pH Urine WBC (Auto) Urine Creatinine Urine Total Protein Fluid Total Protein Vancomycin Trough Rheumatoid Factor Complement C4 Miscellaneous Test Crossmatch 10/03/16 10/03/16 10/03/16 05:10 12:14 13:18 WBC RBC Hgb Hct MCV MCH MCHC RDW Plt Count Lymph % (Auto) [place] % (Auto) Lymph # [place] # Baso # Seg Neutrophils % Seg Neuts % (Manual) Lymphocytes % (Manual) Monocytes % (Manual) Eosinophils % (Manual) Basophils % (Manual) Nucleated RBC % Seg Neutrophils # Seg Neutrophils # Man Lymphocytes # (Manual) Monocytes # (Manual) Eosinophils # (Manual) PT INR Fibrinogen dRVVT Confirm Interp Factor V Activity POC ABG pH POC ABG pCO2 POC ABG pO2 ABG pO2 ABG HCO3 ABG Base Excess ABG Hemoglobin Oxyhemoglobin Sodium 129 L Potassium 3.3 L Chloride 88.8 L Carbon Dioxide 20 L BUN 29 H Creatinine 2.8 H Glucose POC Glucose 68 L 127 H Lactic Acid Calcium 7.2 L Phosphorus Magnesium Direct Bilirubin AST ALT Alkaline Phosphatase Lactate Dehydrogenase Troponin T C-Reactive Protein Total Protein Albumin Prealbumin Triglycerides Cholesterol LDL Cholesterol Direct HDL Cholesterol Urine pH Urine WBC (Auto) Urine Creatinine Urine Total Protein Fluid Total Protein Vancomycin Trough Rheumatoid Factor Complement C4 Miscellaneous Test Crossmatch 10/03/16 10/03/16 10/03/16 14:42 18:21 19:09 WBC RBC Hgb Hct MCV MCH MCHC RDW Plt Count Lymph % (Auto) [place] % (Auto) Lymph # [place] # Baso # Seg Neutrophils % Seg Neuts % (Manual) Lymphocytes % (Manual) Monocytes % (Manual) Eosinophils % (Manual) Basophils % (Manual) Nucleated RBC % Seg Neutrophils # Seg Neutrophils # Man Lymphocytes # (Manual) Monocytes # (Manual) Eosinophils # (Manual) PT INR Fibrinogen dRVVT Confirm Interp Factor V Activity POC ABG pH 7.499 H POC ABG pCO2 28.4 L POC ABG pO2 44 L ABG pO2 ABG HCO3 ABG Base Excess ABG Hemoglobin Oxyhemoglobin Sodium Potassium Chloride Carbon Dioxide BUN Creatinine Glucose POC Glucose 64 L 205 H Lactic Acid Calcium Phosphorus Magnesium Direct Bilirubin AST ALT Alkaline Phosphatase Lactate Dehydrogenase Troponin T C-Reactive Protein Total Protein Albumin Prealbumin Triglycerides Cholesterol LDL Cholesterol Direct HDL Cholesterol Urine pH Urine WBC (Auto) Urine Creatinine Urine Total Protein Fluid Total Protein Vancomycin Trough Rheumatoid Factor Complement C4 Miscellaneous Test Crossmatch 10/03/16 10/04/16 10/04/16 23:33 04:18 06:30 WBC RBC 2.54 L Hgb 7.1 L Hct 21.7 L MCV MCH MCHC RDW 19.5 H Plt Count 76 L Lymph % (Auto) [place] % (Auto) Lymph # [place] # Baso # Seg Neutrophils % Seg Neuts % (Manual) 88.0 H Lymphocytes % (Manual) 6.0 L Monocytes % (Manual) Eosinophils % (Manual) Basophils % (Manual) Nucleated RBC % Seg Neutrophils # Seg Neutrophils # Man 8.8 H Lymphocytes # (Manual) 0.6 L Monocytes # (Manual) Eosinophils # (Manual) PT INR Fibrinogen dRVVT Confirm Interp Factor V Activity POC ABG pH 7.461 H POC ABG pCO2 33.6 L POC ABG pO2 211 H ABG pO2 ABG HCO3 ABG Base Excess ABG Hemoglobin Oxyhemoglobin Sodium Potassium Chloride Carbon Dioxide BUN Creatinine Glucose POC Glucose 136 H Lactic Acid Calcium Phosphorus Magnesium Direct Bilirubin AST ALT Alkaline Phosphatase Lactate Dehydrogenase Troponin T C-Reactive Protein Total Protein Albumin Prealbumin Triglycerides Cholesterol LDL Cholesterol Direct HDL Cholesterol Urine pH Urine WBC (Auto) Urine Creatinine Urine Total Protein Fluid Total Protein Vancomycin Trough Rheumatoid Factor Complement C4 Miscellaneous Test Crossmatch 10/04/16 10/04/16 10/04/16 06:30 11:45 17:54 WBC RBC Hgb Hct MCV MCH MCHC RDW Plt Count Lymph % (Auto) [place] % (Auto) Lymph # [place] # Baso # Seg Neutrophils % Seg Neuts % (Manual) Lymphocytes % (Manual) Monocytes % (Manual) Eosinophils % (Manual) Basophils % (Manual) Nucleated RBC % Seg Neutrophils # Seg Neutrophils # Man Lymphocytes # (Manual) Monocytes # (Manual) Eosinophils # (Manual) PT INR Fibrinogen dRVVT Confirm Interp Factor V Activity POC ABG pH POC ABG pCO2 POC ABG pO2 ABG pO2 ABG HCO3 ABG Base Excess ABG Hemoglobin Oxyhemoglobin Sodium 128 L Potassium Chloride 87.4 L Carbon Dioxide 20 L BUN 34 H Creatinine 2.9 H Glucose 127 H POC Glucose 158 H 160 H Lactic Acid Calcium 7.4 L Phosphorus Magnesium Direct Bilirubin AST ALT Alkaline Phosphatase Lactate Dehydrogenase Troponin T C-Reactive Protein Total Protein Albumin Prealbumin Triglycerides Cholesterol LDL Cholesterol Direct HDL Cholesterol Urine pH Urine WBC (Auto) Urine Creatinine Urine Total Protein Fluid Total Protein Vancomycin Trough Rheumatoid Factor Complement C4 Miscellaneous Test Crossmatch 10/04/16 10/05/16 10/05/16 23:25 04:30 05:00 WBC RBC 2.64 L Hgb 7.5 L Hct 22.6 L MCV MCH MCHC RDW 19.3 H Plt Count 80 L Lymph % (Auto) [place] % (Auto) Lymph # [place] # Baso # Seg Neutrophils % Seg Neuts % (Manual) Lymphocytes % (Manual) 12.0 L Monocytes % (Manual) Eosinophils % (Manual) Basophils % (Manual) Nucleated RBC % Seg Neutrophils # Seg Neutrophils # Man Lymphocytes # (Manual) Monocytes # (Manual) Eosinophils # (Manual) PT INR Fibrinogen dRVVT Confirm Interp Factor V Activity POC ABG pH 7.475 H POC ABG pCO2 33.3 L POC ABG pO2 140 H ABG pO2 ABG HCO3 ABG Base Excess ABG Hemoglobin Oxyhemoglobin Sodium Potassium Chloride Carbon Dioxide BUN Creatinine Glucose POC Glucose 141 H Lactic Acid Calcium Phosphorus Magnesium Direct Bilirubin AST ALT Alkaline Phosphatase Lactate Dehydrogenase Troponin T C-Reactive Protein Total Protein Albumin Prealbumin Triglycerides Cholesterol LDL Cholesterol Direct HDL Cholesterol Urine pH Urine WBC (Auto) Urine Creatinine Urine Total Protein Fluid Total Protein Vancomycin Trough Rheumatoid Factor Complement C4 Miscellaneous Test Crossmatch 10/05/16 10/05/16 10/05/16 05:00 05:09 12:58 WBC RBC Hgb Hct MCV MCH MCHC RDW Plt Count Lymph % (Auto) [place] % (Auto) Lymph # [place] # Baso # Seg Neutrophils % Seg Neuts % (Manual) Lymphocytes % (Manual) Monocytes % (Manual) Eosinophils % (Manual) Basophils % (Manual) Nucleated RBC % Seg Neutrophils # Seg Neutrophils # Man Lymphocytes # (Manual) Monocytes # (Manual) Eosinophils # (Manual) PT INR Fibrinogen dRVVT Confirm Interp Factor V Activity POC ABG pH POC ABG pCO2 POC ABG pO2 ABG pO2 ABG HCO3 ABG Base Excess ABG Hemoglobin Oxyhemoglobin Sodium 131 L Potassium Chloride 94.0 L Carbon Dioxide 20 L BUN 22 H Creatinine 2.0 H Glucose 123 H POC Glucose 166 H 179 H Lactic Acid Calcium 7.7 L Phosphorus 2.20 L D Magnesium Direct Bilirubin AST ALT Alkaline Phosphatase Lactate Dehydrogenase Troponin T C-Reactive Protein Total Protein Albumin Prealbumin Triglycerides Cholesterol LDL Cholesterol Direct HDL Cholesterol Urine pH Urine WBC (Auto) Urine Creatinine Urine Total Protein Fluid Total Protein Vancomycin Trough Rheumatoid Factor Complement C4 Miscellaneous Test Crossmatch 10/05/16 10/05/16 10/05/16 15:50 18:53 23:12 WBC RBC Hgb Hct MCV MCH MCHC RDW Plt Count Lymph % (Auto) [place] % (Auto) Lymph # [place] # Baso # Seg Neutrophils % Seg Neuts % (Manual) Lymphocytes % (Manual) Monocytes % (Manual) Eosinophils % (Manual) Basophils % (Manual) Nucleated RBC % Seg Neutrophils # Seg Neutrophils # Man Lymphocytes # (Manual) Monocytes # (Manual) Eosinophils # (Manual) PT INR Fibrinogen dRVVT Confirm Interp Factor V Activity POC ABG pH POC ABG pCO2 POC ABG pO2 ABG pO2 ABG HCO3 ABG Base Excess ABG Hemoglobin Oxyhemoglobin Sodium Potassium Chloride Carbon Dioxide BUN Creatinine Glucose POC Glucose 150 H 164 H Lactic Acid Calcium Phosphorus Magnesium Direct Bilirubin AST ALT Alkaline Phosphatase Lactate Dehydrogenase Troponin T C-Reactive Protein Total Protein Albumin Prealbumin Triglycerides Cholesterol LDL Cholesterol Direct HDL Cholesterol Urine pH Urine WBC (Auto) Urine Creatinine Urine Total Protein Fluid Total Protein Vancomycin Trough Rheumatoid Factor Complement C4 Miscellaneous Test Crossmatch See Detail 10/06/16 10/06/16 10/06/16 03:50 03:50 04:53 WBC RBC 3.00 L Hgb 8.6 L Hct 25.8 L MCV MCH MCHC RDW 17.9 H Plt Count 65 L Lymph % (Auto) [place] % (Auto) Lymph # [place] # Baso # Seg Neutrophils % Seg Neuts % (Manual) 30.0 L Lymphocytes % (Manual) 5.0 L Monocytes % (Manual) Eosinophils % (Manual) Basophils % (Manual) Nucleated RBC % Seg Neutrophils # Seg Neutrophils # Man Lymphocytes # (Manual) 0.4 L Monocytes # (Manual) Eosinophils # (Manual) PT INR Fibrinogen dRVVT Confirm Interp Factor V Activity POC ABG pH 7.310 L POC ABG pCO2 49.0 H POC ABG pO2 ABG pO2 ABG HCO3 ABG Base Excess ABG Hemoglobin Oxyhemoglobin Sodium 133 L Potassium Chloride 95.9 L Carbon Dioxide BUN 26 H Creatinine 2.0 H Glucose 116 H POC Glucose Lactic Acid Calcium 7.8 L Phosphorus Magnesium Direct Bilirubin AST ALT Alkaline Phosphatase Lactate Dehydrogenase Troponin T C-Reactive Protein Total Protein Albumin Prealbumin Triglycerides Cholesterol LDL Cholesterol Direct HDL Cholesterol Urine pH Urine WBC (Auto) Urine Creatinine Urine Total Protein Fluid Total Protein Vancomycin Trough Rheumatoid Factor Complement C4 Miscellaneous Test Crossmatch 10/06/16 10/06/16 10/06/16 05:23 11:52 18:34 WBC RBC Hgb Hct MCV MCH MCHC RDW Plt Count Lymph % (Auto) [place] % (Auto) Lymph # [place] # Baso # Seg Neutrophils % Seg Neuts % (Manual) Lymphocytes % (Manual) Monocytes % (Manual) Eosinophils % (Manual) Basophils % (Manual) Nucleated RBC % Seg Neutrophils # Seg Neutrophils # Man Lymphocytes # (Manual) Monocytes # (Manual) Eosinophils # (Manual) PT INR Fibrinogen dRVVT Confirm Interp Factor V Activity POC ABG pH POC ABG pCO2 POC ABG pO2 ABG pO2 ABG HCO3 ABG Base Excess ABG Hemoglobin Oxyhemoglobin Sodium Potassium Chloride Carbon Dioxide BUN Creatinine Glucose POC Glucose 126 H 116 H 129 H Lactic Acid Calcium Phosphorus Magnesium Direct Bilirubin AST ALT Alkaline Phosphatase Lactate Dehydrogenase Troponin T C-Reactive Protein Total Protein Albumin Prealbumin Triglycerides Cholesterol LDL Cholesterol Direct HDL Cholesterol Urine pH Urine WBC (Auto) Urine Creatinine Urine Total Protein Fluid Total Protein Vancomycin Trough Rheumatoid Factor Complement C4 Miscellaneous Test Crossmatch 10/07/16 10/07/16 10/07/16 03:45 05:00 10:00 WBC 17.0 H RBC 2.68 L Hgb 7.3 L Hct 25.3 L MCV MCH 27 L MCHC 29 L RDW 19.6 H Plt Count 74 L Lymph % (Auto) [place] % (Auto) Lymph # [place] # Baso # Seg Neutrophils % Seg Neuts % (Manual) Lymphocytes % (Manual) 12.0 L Monocytes % (Manual) Eosinophils % (Manual) Basophils % (Manual) Nucleated RBC % 4.0 H Seg Neutrophils # Seg Neutrophils # Man 10.7 H Lymphocytes # (Manual) Monocytes # (Manual) Eosinophils # (Manual) PT INR Fibrinogen dRVVT Confirm Interp Factor V Activity POC ABG pH POC ABG pCO2 POC ABG pO2 ABG pO2 ABG HCO3 ABG Base Excess ABG Hemoglobin Oxyhemoglobin Sodium 130 L Potassium 3.2 L Chloride 93.9 L Carbon Dioxide 20 L BUN 44 H Creatinine 2.7 H Glucose 129 H POC Glucose Lactic Acid Calcium 7.4 L Phosphorus Magnesium Direct Bilirubin AST ALT 6 L Alkaline Phosphatase 195 H Lactate Dehydrogenase Troponin T C-Reactive Protein Total Protein 4.9 L Albumin 1.0 L Prealbumin Triglycerides Cholesterol LDL Cholesterol Direct HDL Cholesterol Urine pH Urine WBC (Auto) Urine Creatinine Urine Total Protein Fluid Total Protein Vancomycin Trough Rheumatoid Factor Complement C4 Miscellaneous Test Flexitest 1 H Crossmatch 10/07/16 10/07/16 10/07/16 10:00 11:24 18:10 WBC RBC Hgb Hct MCV MCH MCHC RDW Plt Count Lymph % (Auto) [place] % (Auto) Lymph # [place] # Baso # Seg Neutrophils % Seg Neuts % (Manual) Lymphocytes % (Manual) Monocytes % (Manual) Eosinophils % (Manual) Basophils % (Manual) Nucleated RBC % Seg Neutrophils # Seg Neutrophils # Man Lymphocytes # (Manual) Monocytes # (Manual) Eosinophils # (Manual) PT INR Fibrinogen dRVVT Confirm Interp Factor V Activity POC ABG pH POC ABG pCO2 POC ABG pO2 ABG pO2 ABG HCO3 ABG Base Excess ABG Hemoglobin Oxyhemoglobin Sodium Potassium Chloride Carbon Dioxide BUN Creatinine Glucose POC Glucose 116 H 130 H Lactic Acid Calcium Phosphorus Magnesium Direct Bilirubin AST ALT Alkaline Phosphatase Lactate Dehydrogenase Troponin T C-Reactive Protein 19.40 H Total Protein Albumin Prealbumin Triglycerides Cholesterol LDL Cholesterol Direct HDL Cholesterol Urine pH Urine WBC (Auto) Urine Creatinine Urine Total Protein Fluid Total Protein Vancomycin Trough Rheumatoid Factor Complement C4 Miscellaneous Test Crossmatch 10/07/16 10/08/16 10/08/16 18:30 00:00 04:00 WBC RBC Hgb Hct MCV MCH MCHC RDW Plt Count Lymph % (Auto) [place] % (Auto) Lymph # [place] # Baso # Seg Neutrophils % Seg Neuts % (Manual) Lymphocytes % (Manual) Monocytes % (Manual) Eosinophils % (Manual) Basophils % (Manual) Nucleated RBC % Seg Neutrophils # Seg Neutrophils # Man Lymphocytes # (Manual) Monocytes # (Manual) Eosinophils # (Manual) PT INR Fibrinogen dRVVT Confirm Interp Factor V Activity POC ABG pH POC ABG pCO2 POC ABG pO2 ABG pO2 ABG HCO3 ABG Base Excess ABG Hemoglobin Oxyhemoglobin Sodium 132 L Potassium 3.3 L Chloride 93.6 L Carbon Dioxide 17 L BUN 59 H Creatinine 2.7 H Glucose 121 H POC Glucose 122 H Lactic Acid Calcium 7.6 L Phosphorus Magnesium Direct Bilirubin AST ALT Alkaline Phosphatase Lactate Dehydrogenase Troponin T C-Reactive Protein Total Protein Albumin Prealbumin Triglycerides Cholesterol LDL Cholesterol Direct HDL Cholesterol Urine pH Urine WBC (Auto) > 182.0 H Urine Creatinine Urine Total Protein Fluid Total Protein Vancomycin Trough Rheumatoid Factor Complement C4 Miscellaneous Test Crossmatch 10/08/16 10/08/16 10/08/16 04:30 05:30 11:51 WBC RBC 5.15 H Hgb 14.4 H D Hct 44.5 H D MCV MCH MCHC RDW 19.5 H Plt Count 56 L Lymph % (Auto) [place] % (Auto) Lymph # [place] # Baso # Seg Neutrophils % Seg Neuts % (Manual) 24.0 L Lymphocytes % (Manual) 8.0 L Monocytes % (Manual) Eosinophils % (Manual) Basophils % (Manual) Nucleated RBC % 9.0 H Seg Neutrophils # Seg Neutrophils # Man Lymphocytes # (Manual) 0.7 L Monocytes # (Manual) Eosinophils # (Manual) PT INR Fibrinogen dRVVT Confirm Interp Factor V Activity POC ABG pH POC ABG pCO2 POC ABG pO2 ABG pO2 ABG HCO3 ABG Base Excess ABG Hemoglobin Oxyhemoglobin Sodium Potassium Chloride Carbon Dioxide BUN Creatinine Glucose POC Glucose 125 H 150 H Lactic Acid Calcium Phosphorus Magnesium Direct Bilirubin AST ALT Alkaline Phosphatase Lactate Dehydrogenase Troponin T C-Reactive Protein Total Protein Albumin Prealbumin Triglycerides Cholesterol LDL Cholesterol Direct HDL Cholesterol Urine pH Urine WBC (Auto) Urine Creatinine Urine Total Protein Fluid Total Protein Vancomycin Trough Rheumatoid Factor Complement C4 Miscellaneous Test Crossmatch 10/08/16 10/08/16 10/08/16 12:49 17:07 19:30 WBC RBC Hgb 7.1 L D Hct 22.4 L D MCV MCH MCHC RDW Plt Count Lymph % (Auto) [place] % (Auto) Lymph # [place] # Baso # Seg Neutrophils % Seg Neuts % (Manual) Lymphocytes % (Manual) Monocytes % (Manual) Eosinophils % (Manual) Basophils % (Manual) Nucleated RBC % Seg Neutrophils # Seg Neutrophils # Man Lymphocytes # (Manual) Monocytes # (Manual) Eosinophils # (Manual) PT INR Fibrinogen dRVVT Confirm Interp Factor V Activity POC ABG pH POC ABG pCO2 28.2 L POC ABG pO2 111 H ABG pO2 ABG HCO3 ABG Base Excess ABG Hemoglobin Oxyhemoglobin Sodium Potassium Chloride Carbon Dioxide BUN Creatinine Glucose POC Glucose 145 H Lactic Acid Calcium Phosphorus Magnesium Direct Bilirubin AST ALT Alkaline Phosphatase Lactate Dehydrogenase Troponin T C-Reactive Protein Total Protein Albumin Prealbumin Triglycerides Cholesterol LDL Cholesterol Direct HDL Cholesterol Urine pH Urine WBC (Auto) Urine Creatinine Urine Total Protein Fluid Total Protein Vancomycin Trough Rheumatoid Factor Complement C4 Miscellaneous Test Crossmatch 10/08/16 10/09/16 10/09/16 19:30 03:45 03:45 WBC 12.6 H RBC 2.36 L Hgb 6.7 L Hct 21.1 L MCV MCH MCHC RDW 19.5 H Plt Count 75 L Lymph % (Auto) [place] % (Auto) Lymph # [place] # Baso # Seg Neutrophils % Seg Neuts % (Manual) Lymphocytes % (Manual) Monocytes % (Manual) 10.0 H Eosinophils % (Manual) Basophils % (Manual) Nucleated RBC % 3.0 H Seg Neutrophils # Seg Neutrophils # Man Lymphocytes # (Manual) Monocytes # (Manual) 1.3 H Eosinophils # (Manual) PT 18.0 H INR 1.41 H Fibrinogen dRVVT Confirm Interp Factor V Activity POC ABG pH POC ABG pCO2 POC ABG pO2 ABG pO2 ABG HCO3 ABG Base Excess ABG Hemoglobin Oxyhemoglobin Sodium 135 L Potassium Chloride Carbon Dioxide 17 L BUN 81 H Creatinine 3.2 H Glucose 109 H POC Glucose Lactic Acid Calcium 7.4 L Phosphorus 4.60 H D Magnesium Direct Bilirubin AST ALT Alkaline Phosphatase Lactate Dehydrogenase Troponin T C-Reactive Protein Total Protein Albumin Prealbumin Triglycerides Cholesterol LDL Cholesterol Direct HDL Cholesterol Urine pH Urine WBC (Auto) Urine Creatinine Urine Total Protein Fluid Total Protein Vancomycin Trough Rheumatoid Factor Complement C4 Miscellaneous Test Crossmatch 10/09/16 10/09/16 10/09/16 03:45 05:14 07:20 WBC RBC Hgb Hct MCV MCH MCHC RDW Plt Count Lymph % (Auto) [place] % (Auto) Lymph # [place] # Baso # Seg Neutrophils % Seg Neuts % (Manual) Lymphocytes % (Manual) Monocytes % (Manual) Eosinophils % (Manual) Basophils % (Manual) Nucleated RBC % Seg Neutrophils # Seg Neutrophils # Man Lymphocytes # (Manual) Monocytes # (Manual) Eosinophils # (Manual) PT 19.0 H INR 1.51 H Fibrinogen dRVVT Confirm Interp Factor V Activity POC ABG pH POC ABG pCO2 POC ABG pO2 ABG pO2 ABG HCO3 ABG Base Excess ABG Hemoglobin Oxyhemoglobin Sodium Potassium Chloride Carbon Dioxide BUN Creatinine Glucose POC Glucose 151 H Lactic Acid Calcium Phosphorus Magnesium Direct Bilirubin AST ALT Alkaline Phosphatase Lactate Dehydrogenase Troponin T C-Reactive Protein Total Protein Albumin Prealbumin Triglycerides Cholesterol LDL Cholesterol Direct HDL Cholesterol Urine pH Urine WBC (Auto) Urine Creatinine Urine Total Protein Fluid Total Protein Vancomycin Trough Rheumatoid Factor Complement C4 Miscellaneous Test Crossmatch See Detail 10/09/16 10/09/16 10/09/16 11:46 16:20 16:43 WBC RBC Hgb 7.2 L Hct 22.2 L MCV MCH MCHC RDW Plt Count Lymph % (Auto) [place] % (Auto) Lymph # [place] # Baso # Seg Neutrophils % Seg Neuts % (Manual) Lymphocytes % (Manual) Monocytes % (Manual) Eosinophils % (Manual) Basophils % (Manual) Nucleated RBC % Seg Neutrophils # Seg Neutrophils # Man Lymphocytes # (Manual) Monocytes # (Manual) Eosinophils # (Manual) PT INR Fibrinogen dRVVT Confirm Interp Factor V Activity POC ABG pH POC ABG pCO2 POC ABG pO2 ABG pO2 ABG HCO3 ABG Base Excess ABG Hemoglobin Oxyhemoglobin Sodium Potassium Chloride Carbon Dioxide BUN Creatinine Glucose POC Glucose 133 H 141 H Lactic Acid Calcium Phosphorus Magnesium Direct Bilirubin AST ALT Alkaline Phosphatase Lactate Dehydrogenase Troponin T C-Reactive Protein Total Protein Albumin Prealbumin Triglycerides Cholesterol LDL Cholesterol Direct HDL Cholesterol Urine pH Urine WBC (Auto) Urine Creatinine Urine Total Protein Fluid Total Protein Vancomycin Trough Rheumatoid Factor Complement C4 Miscellaneous Test Crossmatch 10/10/16 10/10/16 10/10/16 05:00 05:00 11:19 WBC 18.5 H RBC 2.19 L Hgb 6.4 L Hct 19.6 L* MCV MCH MCHC RDW 19.3 H Plt Count 93 L Lymph % (Auto) [place] % (Auto) Lymph # [place] # Baso # Seg Neutrophils % Seg Neuts % (Manual) Lymphocytes % (Manual) 10.0 L Monocytes % (Manual) Eosinophils % (Manual) Basophils % (Manual) Nucleated RBC % 4.0 H Seg Neutrophils # Seg Neutrophils # Man 11.3 H Lymphocytes # (Manual) Monocytes # (Manual) Eosinophils # (Manual) PT INR Fibrinogen dRVVT Confirm Interp Factor V Activity POC ABG pH POC ABG pCO2 POC ABG pO2 ABG pO2 ABG HCO3 ABG Base Excess ABG Hemoglobin Oxyhemoglobin Sodium Potassium 5.7 H D Chloride Carbon Dioxide 16 L BUN 94 H Creatinine 3.1 H Glucose 131 H POC Glucose 153 H Lactic Acid Calcium 8.2 L Phosphorus 5.10 H Magnesium 2.40 H Direct Bilirubin 0.3 H AST ALT < 5 L Alkaline Phosphatase 319 H Lactate Dehydrogenase Troponin T C-Reactive Protein Total Protein 5.1 L Albumin 1.0 L Prealbumin Triglycerides Cholesterol LDL Cholesterol Direct HDL Cholesterol Urine pH Urine WBC (Auto) Urine Creatinine Urine Total Protein Fluid Total Protein Vancomycin Trough Rheumatoid Factor Complement C4 Miscellaneous Test Crossmatch 10/10/16 10/10/16 10/11/16 17:50 23:30 04:15 WBC RBC Hgb Hct MCV MCH MCHC RDW Plt Count Lymph % (Auto) [place] % (Auto) Lymph # [place] # Baso # Seg Neutrophils % Seg Neuts % (Manual) Lymphocytes % (Manual) Monocytes % (Manual) Eosinophils % (Manual) Basophils % (Manual) Nucleated RBC % Seg Neutrophils # Seg Neutrophils # Man Lymphocytes # (Manual) Monocytes # (Manual) Eosinophils # (Manual) PT INR Fibrinogen dRVVT Confirm Interp Factor V Activity POC ABG pH POC ABG pCO2 POC ABG pO2 ABG pO2 ABG HCO3 ABG Base Excess ABG Hemoglobin Oxyhemoglobin Sodium Potassium Chloride 96.4 L Carbon Dioxide 21 L BUN 57 H Creatinine 2.1 H Glucose 151 H POC Glucose 146 H 141 H Lactic Acid Calcium 8.3 L Phosphorus Magnesium Direct Bilirubin AST ALT Alkaline Phosphatase Lactate Dehydrogenase Troponin T C-Reactive Protein Total Protein Albumin Prealbumin Triglycerides Cholesterol LDL Cholesterol Direct HDL Cholesterol Urine pH Urine WBC (Auto) Urine Creatinine Urine Total Protein Fluid Total Protein Vancomycin Trough Rheumatoid Factor Complement C4 Miscellaneous Test Crossmatch 10/11/16 10/11/16 10/11/16 04:15 04:15 05:30 WBC 28.3 H RBC 3.12 L Hgb 9.3 L Hct 28.7 L D MCV MCH MCHC RDW 17.7 H Plt Count 128 L Lymph % (Auto) [place] % (Auto) Lymph # [place] # Baso # Seg Neutrophils % Seg Neuts % (Manual) Lymphocytes % (Manual) Monocytes % (Manual) Eosinophils % (Manual) Basophils % (Manual) Nucleated RBC % Seg Neutrophils # Seg Neutrophils # Man Lymphocytes # (Manual) Monocytes # (Manual) Eosinophils # (Manual) PT INR Fibrinogen dRVVT Confirm Interp Factor V Activity POC ABG pH POC ABG pCO2 POC ABG pO2 ABG pO2 ABG HCO3 ABG Base Excess ABG Hemoglobin Oxyhemoglobin Sodium Potassium Chloride Carbon Dioxide BUN Creatinine Glucose POC Glucose 167 H Lactic Acid Calcium Phosphorus Magnesium Direct Bilirubin AST ALT Alkaline Phosphatase Lactate Dehydrogenase Troponin T C-Reactive Protein 15.80 H Total Protein Albumin Prealbumin Triglycerides Cholesterol LDL Cholesterol Direct HDL Cholesterol Urine pH Urine WBC (Auto) Urine Creatinine Urine Total Protein Fluid Total Protein Vancomycin Trough Rheumatoid Factor Complement C4 Miscellaneous Test Crossmatch 10/11/16 10/11/16 10/11/16 11:40 15:49 23:57 WBC RBC Hgb Hct MCV MCH MCHC RDW Plt Count Lymph % (Auto) [place] % (Auto) Lymph # [place] # Baso # Seg Neutrophils % Seg Neuts % (Manual) Lymphocytes % (Manual) Monocytes % (Manual) Eosinophils % (Manual) Basophils % (Manual) Nucleated RBC % Seg Neutrophils # Seg Neutrophils # Man Lymphocytes # (Manual) Monocytes # (Manual) Eosinophils # (Manual) PT INR Fibrinogen dRVVT Confirm Interp Factor V Activity POC ABG pH POC ABG pCO2 POC ABG pO2 ABG pO2 ABG HCO3 ABG Base Excess ABG Hemoglobin Oxyhemoglobin Sodium Potassium Chloride Carbon Dioxide BUN Creatinine Glucose POC Glucose 139 H 168 H 161 H Lactic Acid Calcium Phosphorus Magnesium Direct Bilirubin AST ALT Alkaline Phosphatase Lactate Dehydrogenase Troponin T C-Reactive Protein Total Protein Albumin Prealbumin Triglycerides Cholesterol LDL Cholesterol Direct HDL Cholesterol Urine pH Urine WBC (Auto) Urine Creatinine Urine Total Protein Fluid Total Protein Vancomycin Trough Rheumatoid Factor Complement C4 Miscellaneous Test Crossmatch 10/12/16 10/12/16 10/12/16 04:40 04:40 05:44 WBC 22.5 H RBC 2.88 L Hgb 8.8 L Hct 26.8 L MCV MCH MCHC RDW 17.8 H Plt Count Lymph % (Auto) [place] % (Auto) Lymph # [place] # Baso # Seg Neutrophils % Seg Neuts % (Manual) Lymphocytes % (Manual) Monocytes % (Manual) Eosinophils % (Manual) Basophils % (Manual) Nucleated RBC % Seg Neutrophils # Seg Neutrophils # Man Lymphocytes # (Manual) Monocytes # (Manual) Eosinophils # (Manual) PT INR Fibrinogen dRVVT Confirm Interp Factor V Activity POC ABG pH POC ABG pCO2 POC ABG pO2 ABG pO2 ABG HCO3 ABG Base Excess ABG Hemoglobin Oxyhemoglobin Sodium 134 L Potassium Chloride 93.0 L Carbon Dioxide BUN 74 H Creatinine 2.5 H Glucose 137 H POC Glucose 158 H Lactic Acid Calcium 8.2 L Phosphorus Magnesium Direct Bilirubin AST ALT Alkaline Phosphatase Lactate Dehydrogenase Troponin T C-Reactive Protein Total Protein Albumin Prealbumin Triglycerides Cholesterol LDL Cholesterol Direct HDL Cholesterol Urine pH Urine WBC (Auto) Urine Creatinine Urine Total Protein Fluid Total Protein Vancomycin Trough Rheumatoid Factor Complement C4 Miscellaneous Test Crossmatch 10/12/16 10/12/16 10/12/16 12:27 18:18 23:46 WBC RBC Hgb Hct MCV MCH MCHC RDW Plt Count Lymph % (Auto) [place] % (Auto) Lymph # [place] # Baso # Seg Neutrophils % Seg Neuts % (Manual) Lymphocytes % (Manual) Monocytes % (Manual) Eosinophils % (Manual) Basophils % (Manual) Nucleated RBC % Seg Neutrophils # Seg Neutrophils # Man Lymphocytes # (Manual) Monocytes # (Manual) Eosinophils # (Manual) PT INR Fibrinogen dRVVT Confirm Interp Factor V Activity POC ABG pH POC ABG pCO2 POC ABG pO2 ABG pO2 ABG HCO3 ABG Base Excess ABG Hemoglobin Oxyhemoglobin Sodium Potassium Chloride Carbon Dioxide BUN Creatinine Glucose POC Glucose 153 H 140 H 150 H Lactic Acid Calcium Phosphorus Magnesium Direct Bilirubin AST ALT Alkaline Phosphatase Lactate Dehydrogenase Troponin T C-Reactive Protein Total Protein Albumin Prealbumin Triglycerides Cholesterol LDL Cholesterol Direct HDL Cholesterol Urine pH Urine WBC (Auto) Urine Creatinine Urine Total Protein Fluid Total Protein Vancomycin Trough Rheumatoid Factor Complement C4 Miscellaneous Test Crossmatch 10/13/16 10/13/16 10/13/16 06:22 09:20 12:29 WBC RBC Hgb Hct MCV MCH MCHC RDW Plt Count Lymph % (Auto) [place] % (Auto) Lymph # [place] # Baso # Seg Neutrophils % Seg Neuts % (Manual) Lymphocytes % (Manual) Monocytes % (Manual) Eosinophils % (Manual) Basophils % (Manual) Nucleated RBC % Seg Neutrophils # Seg Neutrophils # Man Lymphocytes # (Manual) Monocytes # (Manual) Eosinophils # (Manual) PT INR Fibrinogen dRVVT Confirm Interp Factor V Activity POC ABG pH POC ABG pCO2 POC ABG pO2 ABG pO2 ABG HCO3 ABG Base Excess ABG Hemoglobin Oxyhemoglobin Sodium Potassium Chloride Carbon Dioxide BUN Creatinine Glucose POC Glucose 165 H 193 H Lactic Acid Calcium Phosphorus Magnesium Direct Bilirubin AST ALT Alkaline Phosphatase Lactate Dehydrogenase Troponin T C-Reactive Protein Total Protein Albumin Prealbumin Triglycerides Cholesterol LDL Cholesterol Direct HDL Cholesterol Urine pH Urine WBC (Auto) Urine Creatinine Urine Total Protein Fluid Total Protein Vancomycin Trough Rheumatoid Factor Complement C4 Miscellaneous Test Flexitest 1 H Crossmatch 10/13/16 10/13/16 10/13/16 18:09 Unknown Unknown WBC 23.4 H RBC 2.83 L Hgb 8.7 L Hct 26.1 L MCV MCH MCHC RDW 18.1 H Plt Count Lymph % (Auto) [place] % (Auto) Lymph # [place] # Baso # Seg Neutrophils % Seg Neuts % (Manual) Lymphocytes % (Manual) Monocytes % (Manual) Eosinophils % (Manual) Basophils % (Manual) Nucleated RBC % Seg Neutrophils # Seg Neutrophils # Man Lymphocytes # (Manual) Monocytes # (Manual) Eosinophils # (Manual) PT INR Fibrinogen dRVVT Confirm Interp Factor V Activity POC ABG pH POC ABG pCO2 POC ABG pO2 ABG pO2 ABG HCO3 ABG Base Excess ABG Hemoglobin Oxyhemoglobin Sodium Potassium Chloride 95.8 L Carbon Dioxide BUN 82 H Creatinine 2.6 H Glucose 152 H POC Glucose 166 H Lactic Acid Calcium Phosphorus Magnesium Direct Bilirubin AST ALT Alkaline Phosphatase Lactate Dehydrogenase Troponin T C-Reactive Protein Total Protein Albumin Prealbumin Triglycerides Cholesterol LDL Cholesterol Direct HDL Cholesterol Urine pH Urine WBC (Auto) Urine Creatinine Urine Total Protein Fluid Total Protein Vancomycin Trough Rheumatoid Factor Complement C4 Miscellaneous Test Crossmatch 10/14/16 10/14/16 10/14/16 05:38 06:35 08:10 WBC 20.7 H RBC 2.81 L Hgb 8.4 L Hct 27.2 L MCV MCH MCHC RDW 19.4 H Plt Count Lymph % (Auto) [place] % (Auto) Lymph # [place] # Baso # Seg Neutrophils % Seg Neuts % (Manual) Lymphocytes % (Manual) Monocytes % (Manual) Eosinophils % (Manual) Basophils % (Manual) Nucleated RBC % Seg Neutrophils # Seg Neutrophils # Man Lymphocytes # (Manual) Monocytes # (Manual) Eosinophils # (Manual) PT INR Fibrinogen dRVVT Confirm Interp Factor V Activity POC ABG pH POC ABG pCO2 POC ABG pO2 ABG pO2 ABG HCO3 ABG Base Excess ABG Hemoglobin Oxyhemoglobin Sodium Potassium Chloride Carbon Dioxide BUN 58 H Creatinine 1.9 H Glucose 169 H POC Glucose 195 H Lactic Acid Calcium Phosphorus Magnesium Direct Bilirubin AST ALT Alkaline Phosphatase Lactate Dehydrogenase Troponin T C-Reactive Protein Total Protein Albumin Prealbumin Triglycerides Cholesterol LDL Cholesterol Direct HDL Cholesterol Urine pH Urine WBC (Auto) Urine Creatinine Urine Total Protein Fluid Total Protein Vancomycin Trough Rheumatoid Factor Complement C4 Miscellaneous Test Crossmatch 10/14/16 10/14/16 10/14/16 11:44 17:13 23:28 WBC RBC Hgb Hct MCV MCH MCHC RDW Plt Count Lymph % (Auto) [place] % (Auto) Lymph # [place] # Baso # Seg Neutrophils % Seg Neuts % (Manual) Lymphocytes % (Manual) Monocytes % (Manual) Eosinophils % (Manual) Basophils % (Manual) Nucleated RBC % Seg Neutrophils # Seg Neutrophils # Man Lymphocytes # (Manual) Monocytes # (Manual) Eosinophils # (Manual) PT INR Fibrinogen dRVVT Confirm Interp Factor V Activity POC ABG pH POC ABG pCO2 POC ABG pO2 ABG pO2 ABG HCO3 ABG Base Excess ABG Hemoglobin Oxyhemoglobin Sodium Potassium Chloride Carbon Dioxide BUN Creatinine Glucose POC Glucose 174 H 121 H 151 H Lactic Acid Calcium Phosphorus Magnesium Direct Bilirubin AST ALT Alkaline Phosphatase Lactate Dehydrogenase Troponin T C-Reactive Protein Total Protein Albumin Prealbumin Triglycerides Cholesterol LDL Cholesterol Direct HDL Cholesterol Urine pH Urine WBC (Auto) Urine Creatinine Urine Total Protein Fluid Total Protein Vancomycin Trough Rheumatoid Factor Complement C4 Miscellaneous Test Crossmatch 10/15/16 10/15/1610/15/17 05:06 12:26 17:48 WBC RBC Hgb Hct MCV MCH MCHC RDW Plt Count Lymph % (Auto) [place] % (Auto) Lymph # [place] # Baso # Seg Neutrophils % Seg Neuts % (Manual) Lymphocytes % (Manual) Monocytes % (Manual) Eosinophils % (Manual) Basophils % (Manual) Nucleated RBC % Seg Neutrophils # Seg Neutrophils # Man Lymphocytes # (Manual) Monocytes # (Manual) Eosinophils # (Manual) PT INR Fibrinogen dRVVT Confirm Interp Factor V Activity POC ABG pH POC ABG pCO2 POC ABG pO2 ABG pO2 ABG HCO3 ABG Base Excess ABG Hemoglobin Oxyhemoglobin Sodium Potassium Chloride Carbon Dioxide BUN Creatinine Glucose POC Glucose 151 H 149 H 153 H Lactic Acid Calcium Phosphorus Magnesium Direct Bilirubin AST ALT Alkaline Phosphatase Lactate Dehydrogenase Troponin T C-Reactive Protein Total Protein Albumin Prealbumin Triglycerides Cholesterol LDL Cholesterol Direct HDL Cholesterol Urine pH Urine WBC (Auto) Urine Creatinine Urine Total Protein Fluid Total Protein Vancomycin Trough Rheumatoid Factor Complement C4 Miscellaneous Test Crossmatch 10/15/16 10/15/16 10/16/16 Unknown Unknown 00:02 WBC 23.4 H RBC 2.78 L Hgb 8.5 L Hct 25.7 L MCV MCH MCHC RDW 18.7 H Plt Count Lymph % (Auto) [place] % (Auto) Lymph # [place] # Baso # Seg Neutrophils % Seg Neuts % (Manual) Lymphocytes % (Manual) Monocytes % (Manual) Eosinophils % (Manual) Basophils % (Manual) Nucleated RBC % Seg Neutrophils # Seg Neutrophils # Man Lymphocytes # (Manual) Monocytes # (Manual) Eosinophils # (Manual) PT INR Fibrinogen dRVVT Confirm Interp Factor V Activity POC ABG pH POC ABG pCO2 POC ABG pO2 ABG pO2 ABG HCO3 ABG Base Excess ABG Hemoglobin Oxyhemoglobin Sodium Potassium Chloride Carbon Dioxide BUN 73 H Creatinine 2.3 H Glucose 120 H POC Glucose 137 H Lactic Acid Calcium Phosphorus Magnesium Direct Bilirubin AST ALT Alkaline Phosphatase Lactate Dehydrogenase Troponin T C-Reactive Protein Total Protein Albumin Prealbumin Triglycerides Cholesterol LDL Cholesterol Direct HDL Cholesterol Urine pH Urine WBC (Auto) Urine Creatinine Urine Total Protein Fluid Total Protein Vancomycin Trough Rheumatoid Factor Complement C4 Miscellaneous Test Crossmatch 10/16/16 10/16/16 10/16/16 05:44 06:25 06:25 WBC 22.5 H RBC 2.76 L Hgb 8.3 L Hct 25.2 L MCV MCH MCHC RDW 18.3 H Plt Count Lymph % (Auto) [place] % (Auto) Lymph # [place] # Baso # Seg Neutrophils % Seg Neuts % (Manual) Lymphocytes % (Manual) Monocytes % (Manual) Eosinophils % (Manual) Basophils % (Manual) Nucleated RBC % Seg Neutrophils # Seg Neutrophils # Man Lymphocytes # (Manual) Monocytes # (Manual) Eosinophils # (Manual) PT INR Fibrinogen dRVVT Confirm Interp Factor V Activity POC ABG pH POC ABG pCO2 POC ABG pO2 ABG pO2 ABG HCO3 ABG Base Excess ABG Hemoglobin Oxyhemoglobin Sodium Potassium Chloride Carbon Dioxide BUN 92 H Creatinine 3.0 H Glucose 138 H POC Glucose 110 H Lactic Acid Calcium Phosphorus Magnesium Direct Bilirubin AST ALT Alkaline Phosphatase Lactate Dehydrogenase Troponin T C-Reactive Protein Total Protein Albumin Prealbumin Triglycerides Cholesterol LDL Cholesterol Direct HDL Cholesterol Urine pH Urine WBC (Auto) Urine Creatinine Urine Total Protein Fluid Total Protein Vancomycin Trough Rheumatoid Factor Complement C4 Miscellaneous Test Crossmatch 10/16/16 10/16/16 10/16/16 11:27 11:48 17:36 WBC RBC Hgb Hct MCV MCH MCHC RDW Plt Count Lymph % (Auto) [place] % (Auto) Lymph # [place] # Baso # Seg Neutrophils % Seg Neuts % (Manual) Lymphocytes % (Manual) Monocytes % (Manual) Eosinophils % (Manual) Basophils % (Manual) Nucleated RBC % Seg Neutrophils # Seg Neutrophils # Man Lymphocytes # (Manual) Monocytes # (Manual) Eosinophils # (Manual) PT INR Fibrinogen dRVVT Confirm Interp Factor V Activity POC ABG pH 7.582 H POC ABG pCO2 27.4 L POC ABG pO2 110 H ABG pO2 ABG HCO3 ABG Base Excess ABG Hemoglobin Oxyhemoglobin Sodium Potassium Chloride Carbon Dioxide BUN Creatinine Glucose POC Glucose 121 H 133 H Lactic Acid Calcium Phosphorus Magnesium Direct Bilirubin AST ALT Alkaline Phosphatase Lactate Dehydrogenase Troponin T C-Reactive Protein Total Protein Albumin Prealbumin Triglycerides Cholesterol LDL Cholesterol Direct HDL Cholesterol Urine pH Urine WBC (Auto) Urine Creatinine Urine Total Protein Fluid Total Protein Vancomycin Trough Rheumatoid Factor Complement C4 Miscellaneous Test Crossmatch 10/16/16 10/17/16 10/17/16 20:48 04:24 04:24 WBC 21.4 H RBC 2.72 L Hgb 8.0 L Hct 25.2 L MCV MCH MCHC RDW 18.0 H Plt Count Lymph % (Auto) [place] % (Auto) Lymph # [place] # Baso # Seg Neutrophils % Seg Neuts % (Manual) Lymphocytes % (Manual) Monocytes % (Manual) Eosinophils % (Manual) Basophils % (Manual) Nucleated RBC % Seg Neutrophils # Seg Neutrophils # Man Lymphocytes # (Manual) Monocytes # (Manual) Eosinophils # (Manual) PT INR Fibrinogen dRVVT Confirm Interp Factor V Activity POC ABG pH 7.561 H POC ABG pCO2 24.4 L POC ABG pO2 77 L ABG pO2 ABG HCO3 ABG Base Excess ABG Hemoglobin Oxyhemoglobin Sodium 148 H Potassium Chloride Carbon Dioxide BUN 104 H Creatinine 3.0 H Glucose 149 H POC Glucose Lactic Acid Calcium Phosphorus Magnesium Direct Bilirubin AST ALT Alkaline Phosphatase 138 H Lactate Dehydrogenase Troponin T C-Reactive Protein Total Protein 6.2 L Albumin 1.5 L Prealbumin Triglycerides Cholesterol LDL Cholesterol Direct HDL Cholesterol Urine pH Urine WBC (Auto) Urine Creatinine Urine Total Protein Fluid Total Protein Vancomycin Trough Rheumatoid Factor Complement C4 Miscellaneous Test Crossmatch 10/17/16 10/17/16 10/17/16 06:02 12:17 17:14 WBC RBC Hgb Hct MCV MCH MCHC RDW Plt Count Lymph % (Auto) [place] % (Auto) Lymph # [place] # Baso # Seg Neutrophils % Seg Neuts % (Manual) Lymphocytes % (Manual) Monocytes % (Manual) Eosinophils % (Manual) Basophils % (Manual) Nucleated RBC % Seg Neutrophils # Seg Neutrophils # Man Lymphocytes # (Manual) Monocytes # (Manual) Eosinophils # (Manual) PT INR Fibrinogen dRVVT Confirm Interp Factor V Activity POC ABG pH POC ABG pCO2 POC ABG pO2 ABG pO2 ABG HCO3 ABG Base Excess ABG Hemoglobin Oxyhemoglobin Sodium Potassium Chloride Carbon Dioxide BUN Creatinine Glucose POC Glucose 170 H 167 H 126 H Lactic Acid Calcium Phosphorus Magnesium Direct Bilirubin AST ALT Alkaline Phosphatase Lactate Dehydrogenase Troponin T C-Reactive Protein Total Protein Albumin Prealbumin Triglycerides Cholesterol LDL Cholesterol Direct HDL Cholesterol Urine pH Urine WBC (Auto) Urine Creatinine Urine Total Protein Fluid Total Protein Vancomycin Trough Rheumatoid Factor Complement C4 Miscellaneous Test Crossmatch 10/17/16 10/18/16 10/18/16 23:17 04:00 04:00 WBC 20.7 H RBC 2.47 L Hgb 7.4 L Hct 22.9 L MCV MCH MCHC RDW 17.5 H Plt Count Lymph % (Auto) [place] % (Auto) Lymph # [place] # Baso # Seg Neutrophils % Seg Neuts % (Manual) Lymphocytes % (Manual) Monocytes % (Manual) Eosinophils % (Manual) Basophils % (Manual) Nucleated RBC % Seg Neutrophils # Seg Neutrophils # Man Lymphocytes # (Manual) Monocytes # (Manual) Eosinophils # (Manual) PT INR Fibrinogen dRVVT Confirm Interp Factor V Activity POC ABG pH POC ABG pCO2 POC ABG pO2 ABG pO2 ABG HCO3 ABG Base Excess ABG Hemoglobin Oxyhemoglobin Sodium 149 H Potassium Chloride 107.9 H Carbon Dioxide 20 L BUN 117 H Creatinine 3.2 H Glucose 119 H POC Glucose 121 H Lactic Acid Calcium Phosphorus Magnesium Direct Bilirubin AST ALT Alkaline Phosphatase Lactate Dehydrogenase Troponin T C-Reactive Protein Total Protein Albumin Prealbumin Triglycerides Cholesterol LDL Cholesterol Direct HDL Cholesterol Urine pH Urine WBC (Auto) Urine Creatinine Urine Total Protein Fluid Total Protein Vancomycin Trough Rheumatoid Factor Complement C4 Miscellaneous Test Crossmatch 10/18/16 10/18/16 10/18/16 05:23 10:46 17:30 WBC RBC Hgb Hct MCV MCH MCHC RDW Plt Count Lymph % (Auto) [place] % (Auto) Lymph # [place] # Baso # Seg Neutrophils % Seg Neuts % (Manual) Lymphocytes % (Manual) Monocytes % (Manual) Eosinophils % (Manual) Basophils % (Manual) Nucleated RBC % Seg Neutrophils # Seg Neutrophils # Man Lymphocytes # (Manual) Monocytes # (Manual) Eosinophils # (Manual) PT INR Fibrinogen dRVVT Confirm Interp Factor V Activity POC ABG pH POC ABG pCO2 POC ABG pO2 ABG pO2 ABG HCO3 ABG Base Excess ABG Hemoglobin Oxyhemoglobin Sodium Potassium Chloride Carbon Dioxide BUN Creatinine Glucose POC Glucose 119 H 155 H 124 H Lactic Acid Calcium Phosphorus Magnesium Direct Bilirubin AST ALT Alkaline Phosphatase Lactate Dehydrogenase Troponin T C-Reactive Protein Total Protein Albumin Prealbumin Triglycerides Cholesterol LDL Cholesterol Direct HDL Cholesterol Urine pH Urine WBC (Auto) Urine Creatinine Urine Total Protein Fluid Total Protein Vancomycin Trough Rheumatoid Factor Complement C4 Miscellaneous Test Crossmatch 10/19/16 10/19/16 10/19/16 04:00 04:00 05:25 WBC 17.4 H RBC 2.54 L Hgb 7.7 L Hct 23.6 L MCV MCH MCHC RDW 17.3 H Plt Count Lymph % (Auto) [place] % (Auto) Lymph # [place] # Baso # Seg Neutrophils % Seg Neuts % (Manual) Lymphocytes % (Manual) Monocytes % (Manual) Eosinophils % (Manual) Basophils % (Manual) Nucleated RBC % Seg Neutrophils # Seg Neutrophils # Man Lymphocytes # (Manual) Monocytes # (Manual) Eosinophils # (Manual) PT INR Fibrinogen dRVVT Confirm Interp Factor V Activity POC ABG pH POC ABG pCO2 POC ABG pO2 ABG pO2 ABG HCO3 ABG Base Excess ABG Hemoglobin Oxyhemoglobin Sodium Potassium Chloride Carbon Dioxide BUN 72 H Creatinine 2.1 H Glucose 116 H POC Glucose 119 H Lactic Acid Calcium Phosphorus Magnesium Direct Bilirubin AST ALT Alkaline Phosphatase Lactate Dehydrogenase Troponin T C-Reactive Protein Total Protein Albumin Prealbumin Triglycerides Cholesterol LDL Cholesterol Direct HDL Cholesterol Urine pH Urine WBC (Auto) Urine Creatinine Urine Total Protein Fluid Total Protein Vancomycin Trough Rheumatoid Factor Complement C4 Miscellaneous Test Crossmatch 10/19/16 10/19/16 10/20/16 11:46 23:59 06:00 WBC RBC Hgb Hct MCV MCH MCHC RDW Plt Count Lymph % (Auto) [place] % (Auto) Lymph # [place] # Baso # Seg Neutrophils % Seg Neuts % (Manual) Lymphocytes % (Manual) Monocytes % (Manual) Eosinophils % (Manual) Basophils % (Manual) Nucleated RBC % Seg Neutrophils # Seg Neutrophils # Man Lymphocytes # (Manual) Monocytes # (Manual) Eosinophils # (Manual) PT INR Fibrinogen dRVVT Confirm Interp Factor V Activity POC ABG pH POC ABG pCO2 POC ABG pO2 ABG pO2 ABG HCO3 ABG Base Excess ABG Hemoglobin Oxyhemoglobin Sodium Potassium Chloride Carbon Dioxide 17 L BUN 94 H Creatinine 2.7 H Glucose POC Glucose 116 H 117 H Lactic Acid Calcium Phosphorus Magnesium Direct Bilirubin AST ALT Alkaline Phosphatase Lactate Dehydrogenase Troponin T C-Reactive Protein Total Protein Albumin Prealbumin Triglycerides Cholesterol LDL Cholesterol Direct HDL Cholesterol Urine pH Urine WBC (Auto) Urine Creatinine Urine Total Protein Fluid Total Protein Vancomycin Trough Rheumatoid Factor Complement C4 Miscellaneous Test Crossmatch 10/20/16 10/20/16 10/20/16 06:00 11:49 16:00 WBC 19.7 H RBC 2.51 L Hgb 7.7 L Hct 23.5 L MCV MCH MCHC RDW 17.5 H Plt Count Lymph % (Auto) [place] % (Auto) Lymph # [place] # Baso # Seg Neutrophils % Seg Neuts % (Manual) Lymphocytes % (Manual) Monocytes % (Manual) Eosinophils % (Manual) Basophils % (Manual) Nucleated RBC % Seg Neutrophils # Seg Neutrophils # Man Lymphocytes # (Manual) Monocytes # (Manual) Eosinophils # (Manual) PT INR Fibrinogen dRVVT Confirm Interp Factor V Activity POC ABG pH POC ABG pCO2 POC ABG pO2 ABG pO2 ABG HCO3 ABG Base Excess ABG Hemoglobin Oxyhemoglobin Sodium Potassium Chloride Carbon Dioxide BUN Creatinine Glucose POC Glucose 117 H Lactic Acid Calcium Phosphorus Magnesium Direct Bilirubin AST ALT Alkaline Phosphatase Lactate Dehydrogenase Troponin T C-Reactive Protein Total Protein Albumin Prealbumin Triglycerides Cholesterol LDL Cholesterol Direct HDL Cholesterol Urine pH Urine WBC (Auto) Urine Creatinine Urine Total Protein Fluid Total Protein Vancomycin Trough Rheumatoid Factor Complement C4 Miscellaneous Test Flexitest 1 H Crossmatch 10/20/16 10/20/16 10/21/16 18:36 23:39 04:00 WBC RBC Hgb Hct MCV MCH MCHC RDW Plt Count Lymph % (Auto) [place] % (Auto) Lymph # [place] # Baso # Seg Neutrophils % Seg Neuts % (Manual) Lymphocytes % (Manual) Monocytes % (Manual) Eosinophils % (Manual) Basophils % (Manual) Nucleated RBC % Seg Neutrophils # Seg Neutrophils # Man Lymphocytes # (Manual) Monocytes # (Manual) Eosinophils # (Manual) PT INR Fibrinogen dRVVT Confirm Interp Factor V Activity POC ABG pH POC ABG pCO2 POC ABG pO2 ABG pO2 ABG HCO3 ABG Base Excess ABG Hemoglobin Oxyhemoglobin Sodium Potassium 5.4 H D Chloride Carbon Dioxide 15 L BUN 110 H Creatinine 3.0 H Glucose POC Glucose 127 H 114 H Lactic Acid Calcium Phosphorus Magnesium Direct Bilirubin AST ALT Alkaline Phosphatase Lactate Dehydrogenase Troponin T C-Reactive Protein Total Protein Albumin Prealbumin Triglycerides Cholesterol LDL Cholesterol Direct HDL Cholesterol Urine pH Urine WBC (Auto) Urine Creatinine Urine Total Protein Fluid Total Protein Vancomycin Trough Rheumatoid Factor Complement C4 Miscellaneous Test Crossmatch 10/21/16 10/21/16 10/22/16 05:54 23:46 05:18 WBC RBC Hgb Hct MCV MCH MCHC RDW Plt Count Lymph % (Auto) [place] % (Auto) Lymph # [place] # Baso # Seg Neutrophils % Seg Neuts % (Manual) Lymphocytes % (Manual) Monocytes % (Manual) Eosinophils % (Manual) Basophils % (Manual) Nucleated RBC % Seg Neutrophils # Seg Neutrophils # Man Lymphocytes # (Manual) Monocytes # (Manual) Eosinophils # (Manual) PT INR Fibrinogen dRVVT Confirm Interp Factor V Activity POC ABG pH POC ABG pCO2 POC ABG pO2 ABG pO2 ABG HCO3 ABG Base Excess ABG Hemoglobin Oxyhemoglobin Sodium Potassium Chloride Carbon Dioxide BUN Creatinine Glucose POC Glucose 119 H 108 H 109 H Lactic Acid Calcium Phosphorus Magnesium Direct Bilirubin AST ALT Alkaline Phosphatase Lactate Dehydrogenase Troponin T C-Reactive Protein Total Protein Albumin Prealbumin Triglycerides Cholesterol LDL Cholesterol Direct HDL Cholesterol Urine pH Urine WBC (Auto) Urine Creatinine Urine Total Protein Fluid Total Protein Vancomycin Trough Rheumatoid Factor Complement C4 Miscellaneous Test Crossmatch 10/22/16 10/22/16 10/22/16 06:40 06:40 06:40 WBC 14.0 H RBC 2.03 L Hgb 7.0 L Hct 20.5 L MCV 98 H MCH 34 H MCHC 35 H RDW 17.8 H Plt Count Lymph % (Auto) [place] % (Auto) 9.9 H Lymph # [place] # 1.4 H Baso # 0.2 H Seg Neutrophils % 72.0 H Seg Neuts % (Manual) Lymphocytes % (Manual) Monocytes % (Manual) Eosinophils % (Manual) Basophils % (Manual) Nucleated RBC % Seg Neutrophils # 10.0 H Seg Neutrophils # Man Lymphocytes # (Manual) Monocytes # (Manual) Eosinophils # (Manual) PT INR Fibrinogen dRVVT Confirm Interp Factor V Activity POC ABG pH POC ABG pCO2 POC ABG pO2 ABG pO2 ABG HCO3 ABG Base Excess ABG Hemoglobin Oxyhemoglobin Sodium 130 L D Potassium Chloride 92.4 L Carbon Dioxide 20 L BUN 50 H Creatinine 1.6 H Glucose 589 H* POC Glucose Lactic Acid Calcium 7.8 L D Phosphorus Magnesium 1.60 L Direct Bilirubin AST ALT Alkaline Phosphatase Lactate Dehydrogenase Troponin T C-Reactive Protein Total Protein Albumin Prealbumin Triglycerides Cholesterol LDL Cholesterol Direct HDL Cholesterol Urine pH Urine WBC (Auto) Urine Creatinine Urine Total Protein Fluid Total Protein Vancomycin Trough Rheumatoid Factor Complement C4 Miscellaneous Test Crossmatch 10/22/16 10/22/16 10/22/16 11:39 16:44 23:36 WBC RBC Hgb Hct MCV MCH MCHC RDW Plt Count Lymph % (Auto) [place] % (Auto) Lymph # [place] # Baso # Seg Neutrophils % Seg Neuts % (Manual) Lymphocytes % (Manual) Monocytes % (Manual) Eosinophils % (Manual) Basophils % (Manual) Nucleated RBC % Seg Neutrophils # Seg Neutrophils # Man Lymphocytes # (Manual) Monocytes # (Manual) Eosinophils # (Manual) PT INR Fibrinogen dRVVT Confirm Interp Factor V Activity POC ABG pH POC ABG pCO2 POC ABG pO2 ABG pO2 ABG HCO3 ABG Base Excess ABG Hemoglobin Oxyhemoglobin Sodium Potassium Chloride Carbon Dioxide BUN Creatinine Glucose POC Glucose 142 H 163 H 123 H Lactic Acid Calcium Phosphorus Magnesium Direct Bilirubin AST ALT Alkaline Phosphatase Lactate Dehydrogenase Troponin T C-Reactive Protein Total Protein Albumin Prealbumin Triglycerides Cholesterol LDL Cholesterol Direct HDL Cholesterol Urine pH Urine WBC (Auto) Urine Creatinine Urine Total Protein Fluid Total Protein Vancomycin Trough Rheumatoid Factor Complement C4 Miscellaneous Test Crossmatch 10/23/16 10/23/16 10/23/16 04:58 06:00 12:12 WBC RBC Hgb Hct MCV MCH MCHC RDW Plt Count Lymph % (Auto) [place] % (Auto) Lymph # [place] # Baso # Seg Neutrophils % Seg Neuts % (Manual) Lymphocytes % (Manual) Monocytes % (Manual) Eosinophils % (Manual) Basophils % (Manual) Nucleated RBC % Seg Neutrophils # Seg Neutrophils # Man Lymphocytes # (Manual) Monocytes # (Manual) Eosinophils # (Manual) PT INR Fibrinogen dRVVT Confirm Interp Factor V Activity POC ABG pH POC ABG pCO2 POC ABG pO2 ABG pO2 ABG HCO3 ABG Base Excess ABG Hemoglobin Oxyhemoglobin Sodium 133 L Potassium 3.5 L Chloride 96.1 L Carbon Dioxide 18 L BUN 76 H Creatinine 2.1 H Glucose POC Glucose 133 H 138 H Lactic Acid Calcium 8.3 L Phosphorus Magnesium Direct Bilirubin AST ALT Alkaline Phosphatase Lactate Dehydrogenase Troponin T C-Reactive Protein Total Protein Albumin Prealbumin Triglycerides Cholesterol LDL Cholesterol Direct HDL Cholesterol Urine pH Urine WBC (Auto) Urine Creatinine Urine Total Protein Fluid Total Protein Vancomycin Trough Rheumatoid Factor Complement C4 Miscellaneous Test Crossmatch 10/23/16 10/23/16 10/24/16 16:53 23:37 04:00 WBC RBC Hgb Hct MCV MCH MCHC RDW Plt Count Lymph % (Auto) [place] % (Auto) Lymph # [place] # Baso # Seg Neutrophils % Seg Neuts % (Manual) Lymphocytes % (Manual) Monocytes % (Manual) Eosinophils % (Manual) Basophils % (Manual) Nucleated RBC % Seg Neutrophils # Seg Neutrophils # Man Lymphocytes # (Manual) Monocytes # (Manual) Eosinophils # (Manual) PT INR Fibrinogen dRVVT Confirm Interp Factor V Activity POC ABG pH POC ABG pCO2 POC ABG pO2 ABG pO2 ABG HCO3 ABG Base Excess ABG Hemoglobin Oxyhemoglobin Sodium 131 L Potassium Chloride 94.5 L Carbon Dioxide 19 L BUN 97 H Creatinine 2.6 H Glucose 110 H POC Glucose 125 H 123 H Lactic Acid Calcium 8.3 L Phosphorus Magnesium Direct Bilirubin AST ALT Alkaline Phosphatase Lactate Dehydrogenase Troponin T C-Reactive Protein Total Protein Albumin Prealbumin Triglycerides Cholesterol LDL Cholesterol Direct HDL Cholesterol Urine pH Urine WBC (Auto) Urine Creatinine Urine Total Protein Fluid Total Protein Vancomycin Trough Rheumatoid Factor Complement C4 Miscellaneous Test Crossmatch 10/24/16 10/24/16 10/24/16 07:49 11:39 17:52 WBC RBC Hgb 6.0 L Hct 19.7 L* MCV MCH MCHC RDW Plt Count Lymph % (Auto) [place] % (Auto) Lymph # [place] # Baso # Seg Neutrophils % Seg Neuts % (Manual) Lymphocytes % (Manual) Monocytes % (Manual) Eosinophils % (Manual) Basophils % (Manual) Nucleated RBC % Seg Neutrophils # Seg Neutrophils # Man Lymphocytes # (Manual) Monocytes # (Manual) Eosinophils # (Manual) PT INR Fibrinogen dRVVT Confirm Interp Factor V Activity POC ABG pH POC ABG pCO2 POC ABG pO2 ABG pO2 ABG HCO3 ABG Base Excess ABG Hemoglobin Oxyhemoglobin Sodium Potassium Chloride Carbon Dioxide BUN Creatinine Glucose POC Glucose 106 H 158 H Lactic Acid Calcium Phosphorus Magnesium Direct Bilirubin AST ALT Alkaline Phosphatase Lactate Dehydrogenase Troponin T C-Reactive Protein Total Protein Albumin Prealbumin Triglycerides Cholesterol LDL Cholesterol Direct HDL Cholesterol Urine pH Urine WBC (Auto) Urine Creatinine Urine Total Protein Fluid Total Protein Vancomycin Trough Rheumatoid Factor Complement C4 Miscellaneous Test Crossmatch 10/24/16 10/24/16 10/24/16 20:00 22:27 Unknown WBC RBC Hgb 9.4 L D Hct 27.5 L D MCV MCH MCHC RDW Plt Count Lymph % (Auto) [place] % (Auto) Lymph # [place] # Baso # Seg Neutrophils % Seg Neuts % (Manual) Lymphocytes % (Manual) Monocytes % (Manual) Eosinophils % (Manual) Basophils % (Manual) Nucleated RBC % Seg Neutrophils # Seg Neutrophils # Man Lymphocytes # (Manual) Monocytes # (Manual) Eosinophils # (Manual) PT INR Fibrinogen dRVVT Confirm Interp Factor V Activity POC ABG pH POC ABG pCO2 POC ABG pO2 ABG pO2 ABG HCO3 ABG Base Excess ABG Hemoglobin Oxyhemoglobin Sodium Potassium Chloride Carbon Dioxide BUN Creatinine Glucose POC Glucose 125 H Lactic Acid Calcium Phosphorus Magnesium Direct Bilirubin AST ALT Alkaline Phosphatase Lactate Dehydrogenase Troponin T C-Reactive Protein Total Protein Albumin Prealbumin Triglycerides Cholesterol LDL Cholesterol Direct HDL Cholesterol Urine pH Urine WBC (Auto) Urine Creatinine Urine Total Protein Fluid Total Protein Vancomycin Trough Rheumatoid Factor Complement C4 Miscellaneous Test Crossmatch See Detail 10/25/16 10/25/16 10/25/16 04:00 04:00 04:00 WBC 14.2 H RBC 2.98 L Hgb 9.0 L Hct 26.2 L MCV MCH MCHC RDW 16.6 H Plt Count Lymph % (Auto) [place] % (Auto) 10.7 H Lymph # [place] # 1.5 H Baso # Seg Neutrophils % 73.6 H Seg Neuts % (Manual) Lymphocytes % (Manual) Monocytes % (Manual) Eosinophils % (Manual) Basophils % (Manual) Nucleated RBC % Seg Neutrophils # 10.5 H Seg Neutrophils # Man Lymphocytes # (Manual) Monocytes # (Manual) Eosinophils # (Manual) PT INR Fibrinogen dRVVT Confirm Interp Factor V Activity POC ABG pH POC ABG pCO2 POC ABG pO2 ABG pO2 ABG HCO3 ABG Base Excess ABG Hemoglobin Oxyhemoglobin Sodium 132 L Potassium Chloride 94.7 L Carbon Dioxide BUN 51 H Creatinine 1.6 H Glucose 130 H POC Glucose Lactic Acid Calcium 8.3 L Phosphorus 1.60 L D Magnesium Direct Bilirubin AST ALT Alkaline Phosphatase Lactate Dehydrogenase Troponin T C-Reactive Protein Total Protein Albumin Prealbumin Triglycerides Cholesterol LDL Cholesterol Direct HDL Cholesterol Urine pH Urine WBC (Auto) Urine Creatinine Urine Total Protein Fluid Total Protein Vancomycin Trough Rheumatoid Factor Complement C4 Miscellaneous Test Crossmatch 10/25/16 10/25/16 10/25/16 04:32 11:48 17:22 WBC RBC Hgb Hct MCV MCH MCHC RDW Plt Count Lymph % (Auto) [place] % (Auto) Lymph # [place] # Baso # Seg Neutrophils % Seg Neuts % (Manual) Lymphocytes % (Manual) Monocytes % (Manual) Eosinophils % (Manual) Basophils % (Manual) Nucleated RBC % Seg Neutrophils # Seg Neutrophils # Man Lymphocytes # (Manual) Monocytes # (Manual) Eosinophils # (Manual) PT INR Fibrinogen dRVVT Confirm Interp Factor V Activity POC ABG pH POC ABG pCO2 POC ABG pO2 ABG pO2 ABG HCO3 ABG Base Excess ABG Hemoglobin Oxyhemoglobin Sodium Potassium Chloride Carbon Dioxide BUN Creatinine Glucose POC Glucose 124 H 171 H 120 H Lactic Acid Calcium Phosphorus Magnesium Direct Bilirubin AST ALT Alkaline Phosphatase Lactate Dehydrogenase Troponin T C-Reactive Protein Total Protein Albumin Prealbumin Triglycerides Cholesterol LDL Cholesterol Direct HDL Cholesterol Urine pH Urine WBC (Auto) Urine Creatinine Urine Total Protein Fluid Total Protein Vancomycin Trough Rheumatoid Factor Complement C4 Miscellaneous Test Crossmatch 10/26/16 10/26/16 10/26/16 04:54 07:06 07:06 WBC 16.9 H RBC 3.06 L Hgb 9.1 L Hct 26.9 L MCV MCH MCHC RDW 16.9 H Plt Count Lymph % (Auto) [place] % (Auto) Lymph # [place] # Baso # Seg Neutrophils % Seg Neuts % (Manual) 71.0 H Lymphocytes % (Manual) 5.0 L Monocytes % (Manual) 12.0 H Eosinophils % (Manual) Basophils % (Manual) Nucleated RBC % Seg Neutrophils # Seg Neutrophils # Man 12.0 H Lymphocytes # (Manual) 0.8 L Monocytes # (Manual) 2.0 H Eosinophils # (Manual) PT INR Fibrinogen dRVVT Confirm Interp Factor V Activity POC ABG pH POC ABG pCO2 POC ABG pO2 ABG pO2 ABG HCO3 ABG Base Excess ABG Hemoglobin Oxyhemoglobin Sodium 135 L Potassium Chloride 97.1 L Carbon Dioxide BUN 73 H Creatinine 2.2 H Glucose 117 H POC Glucose 123 H Lactic Acid Calcium Phosphorus 1.70 L Magnesium Direct Bilirubin AST ALT Alkaline Phosphatase Lactate Dehydrogenase Troponin T C-Reactive Protein Total Protein Albumin Prealbumin Triglycerides Cholesterol LDL Cholesterol Direct HDL Cholesterol Urine pH Urine WBC (Auto) Urine Creatinine Urine Total Protein Fluid Total Protein Vancomycin Trough Rheumatoid Factor Complement C4 Miscellaneous Test Crossmatch 10/26/16 10/26/16 10/26/16 12:12 17:29 23:42 WBC RBC Hgb Hct MCV MCH MCHC RDW Plt Count Lymph % (Auto) [place] % (Auto) Lymph # [place] # Baso # Seg Neutrophils % Seg Neuts % (Manual) Lymphocytes % (Manual) Monocytes % (Manual) Eosinophils % (Manual) Basophils % (Manual) Nucleated RBC % Seg Neutrophils # Seg Neutrophils # Man Lymphocytes # (Manual) Monocytes # (Manual) Eosinophils # (Manual) PT INR Fibrinogen dRVVT Confirm Interp Factor V Activity POC ABG pH POC ABG pCO2 POC ABG pO2 ABG pO2 ABG HCO3 ABG Base Excess ABG Hemoglobin Oxyhemoglobin Sodium Potassium Chloride Carbon Dioxide BUN Creatinine Glucose POC Glucose 126 H 161 H 118 H Lactic Acid Calcium Phosphorus Magnesium Direct Bilirubin AST ALT Alkaline Phosphatase Lactate Dehydrogenase Troponin T C-Reactive Protein Total Protein Albumin Prealbumin Triglycerides Cholesterol LDL Cholesterol Direct HDL Cholesterol Urine pH Urine WBC (Auto) Urine Creatinine Urine Total Protein Fluid Total Protein Vancomycin Trough Rheumatoid Factor Complement C4 Miscellaneous Test Crossmatch 10/27/16 10/27/16 10/27/16 05:03 06:30 06:30 WBC 13.9 H RBC 3.09 L Hgb 9.2 L Hct 27.5 L MCV MCH MCHC RDW 17.0 H Plt Count Lymph % (Auto) [place] % (Auto) Lymph # [place] # Baso # Seg Neutrophils % Seg Neuts % (Manual) 78.0 H Lymphocytes % (Manual) Monocytes % (Manual) Eosinophils % (Manual) Basophils % (Manual) Nucleated RBC % 2.0 H Seg Neutrophils # Seg Neutrophils # Man 10.8 H Lymphocytes # (Manual) Monocytes # (Manual) 1.0 H Eosinophils # (Manual) PT INR Fibrinogen dRVVT Confirm Interp Factor V Activity POC ABG pH POC ABG pCO2 POC ABG pO2 ABG pO2 ABG HCO3 ABG Base Excess ABG Hemoglobin Oxyhemoglobin Sodium Potassium Chloride Carbon Dioxide BUN 40 H Creatinine 1.5 H Glucose 135 H POC Glucose 107 H Lactic Acid Calcium 8.3 L Phosphorus 1.30 L D Magnesium Direct Bilirubin AST ALT Alkaline Phosphatase Lactate Dehydrogenase Troponin T C-Reactive Protein Total Protein Albumin Prealbumin Triglycerides Cholesterol LDL Cholesterol Direct HDL Cholesterol Urine pH Urine WBC (Auto) Urine Creatinine Urine Total Protein Fluid Total Protein Vancomycin Trough Rheumatoid Factor Complement C4 Miscellaneous Test Crossmatch 10/27/16 10/27/16 10/27/16 13:27 18:07 23:40 WBC RBC Hgb Hct MCV MCH MCHC RDW Plt Count Lymph % (Auto) [place] % (Auto) Lymph # [place] # Baso # Seg Neutrophils % Seg Neuts % (Manual) Lymphocytes % (Manual) Monocytes % (Manual) Eosinophils % (Manual) Basophils % (Manual) Nucleated RBC % Seg Neutrophils # Seg Neutrophils # Man Lymphocytes # (Manual) Monocytes # (Manual) Eosinophils # (Manual) PT INR Fibrinogen dRVVT Confirm Interp Factor V Activity POC ABG pH POC ABG pCO2 POC ABG pO2 ABG pO2 ABG HCO3 ABG Base Excess ABG Hemoglobin Oxyhemoglobin Sodium Potassium Chloride Carbon Dioxide BUN Creatinine Glucose POC Glucose 117 H 121 H 118 H Lactic Acid Calcium Phosphorus Magnesium Direct Bilirubin AST ALT Alkaline Phosphatase Lactate Dehydrogenase Troponin T C-Reactive Protein Total Protein Albumin Prealbumin Triglycerides Cholesterol LDL Cholesterol Direct HDL Cholesterol Urine pH Urine WBC (Auto) Urine Creatinine Urine Total Protein Fluid Total Protein Vancomycin Trough Rheumatoid Factor Complement C4 Miscellaneous Test Crossmatch 10/28/16 10/28/16 10/28/16 05:48 06:45 06:45 WBC 14.7 H RBC 3.05 L Hgb 9.0 L Hct 26.9 L MCV MCH MCHC RDW 16.8 H Plt Count Lymph % (Auto) 8.2 L [place] % (Auto) 8.4 H Lymph # [place] # 1.2 H Baso # Seg Neutrophils % 81.9 H Seg Neuts % (Manual) Lymphocytes % (Manual) Monocytes % (Manual) Eosinophils % (Manual) Basophils % (Manual) Nucleated RBC % Seg Neutrophils # 12.1 H Seg Neutrophils # Man Lymphocytes # (Manual) Monocytes # (Manual) Eosinophils # (Manual) PT INR Fibrinogen dRVVT Confirm Interp Factor V Activity POC ABG pH POC ABG pCO2 POC ABG pO2 ABG pO2 ABG HCO3 ABG Base Excess ABG Hemoglobin Oxyhemoglobin Sodium Potassium Chloride Carbon Dioxide BUN 60 H Creatinine 1.9 H Glucose 120 H POC Glucose 114 H Lactic Acid Calcium Phosphorus Magnesium Direct Bilirubin AST ALT Alkaline Phosphatase Lactate Dehydrogenase Troponin T C-Reactive Protein Total Protein Albumin Prealbumin Triglycerides Cholesterol LDL Cholesterol Direct HDL Cholesterol Urine pH Urine WBC (Auto) Urine Creatinine Urine Total Protein Fluid Total Protein Vancomycin Trough Rheumatoid Factor Complement C4 Miscellaneous Test Crossmatch 10/28/16 10/28/16 10/29/16 17:08 23:50 05:10 WBC RBC Hgb Hct MCV MCH MCHC RDW Plt Count Lymph % (Auto) [place] % (Auto) Lymph # [place] # Baso # Seg Neutrophils % Seg Neuts % (Manual) Lymphocytes % (Manual) Monocytes % (Manual) Eosinophils % (Manual) Basophils % (Manual) Nucleated RBC % Seg Neutrophils # Seg Neutrophils # Man Lymphocytes # (Manual) Monocytes # (Manual) Eosinophils # (Manual) PT INR Fibrinogen dRVVT Confirm Interp Factor V Activity POC ABG pH POC ABG pCO2 POC ABG pO2 ABG pO2 ABG HCO3 ABG Base Excess ABG Hemoglobin Oxyhemoglobin Sodium Potassium Chloride Carbon Dioxide BUN Creatinine Glucose POC Glucose 109 H 110 H 124 H Lactic Acid Calcium Phosphorus Magnesium Direct Bilirubin AST ALT Alkaline Phosphatase Lactate Dehydrogenase Troponin T C-Reactive Protein Total Protein Albumin Prealbumin Triglycerides Cholesterol LDL Cholesterol Direct HDL Cholesterol Urine pH Urine WBC (Auto) Urine Creatinine Urine Total Protein Fluid Total Protein Vancomycin Trough Rheumatoid Factor Complement C4 Miscellaneous Test Crossmatch 10/29/16 10/29/16 10/29/16 07:45 07:45 12:19 WBC 14.7 H RBC 3.15 L Hgb 9.3 L Hct 28.9 L MCV MCH MCHC RDW 17.0 H Plt Count Lymph % (Auto) 11.9 L [place] % (Auto) 8.6 H Lymph # [place] # 1.3 H Baso # Seg Neutrophils % 78.1 H Seg Neuts % (Manual) Lymphocytes % (Manual) Monocytes % (Manual) Eosinophils % (Manual) Basophils % (Manual) Nucleated RBC % Seg Neutrophils # 11.4 H Seg Neutrophils # Man Lymphocytes # (Manual) Monocytes # (Manual) Eosinophils # (Manual) PT INR Fibrinogen dRVVT Confirm Interp Factor V Activity POC ABG pH POC ABG pCO2 POC ABG pO2 ABG pO2 ABG HCO3 ABG Base Excess ABG Hemoglobin Oxyhemoglobin Sodium Potassium 5.1 H Chloride Carbon Dioxide 19 L BUN 78 H Creatinine 2.2 H Glucose 116 H POC Glucose 118 H Lactic Acid Calcium Phosphorus Magnesium Direct Bilirubin AST ALT Alkaline Phosphatase Lactate Dehydrogenase Troponin T C-Reactive Protein Total Protein Albumin Prealbumin Triglycerides Cholesterol LDL Cholesterol Direct HDL Cholesterol Urine pH Urine WBC (Auto) Urine Creatinine Urine Total Protein Fluid Total Protein Vancomycin Trough Rheumatoid Factor Complement C4 Miscellaneous Test Crossmatch 10/29/16 10/30/16 10/30/16 17:49 01:52 03:28 WBC RBC Hgb Hct MCV MCH MCHC RDW Plt Count Lymph % (Auto) [place] % (Auto) Lymph # [place] # Baso # Seg Neutrophils % Seg Neuts % (Manual) Lymphocytes % (Manual) Monocytes % (Manual) Eosinophils % (Manual) Basophils % (Manual) Nucleated RBC % Seg Neutrophils # Seg Neutrophils # Man Lymphocytes # (Manual) Monocytes # (Manual) Eosinophils # (Manual) PT INR Fibrinogen dRVVT Confirm Interp Factor V Activity POC ABG pH POC ABG pCO2 POC ABG pO2 ABG pO2 ABG HCO3 ABG Base Excess ABG Hemoglobin Oxyhemoglobin Sodium Potassium 5.4 H Chloride 97.5 L Carbon Dioxide 19 L BUN 90 H Creatinine 2.5 H Glucose POC Glucose 120 H 129 H Lactic Acid Calcium Phosphorus 5.20 H Magnesium Direct Bilirubin AST ALT Alkaline Phosphatase Lactate Dehydrogenase Troponin T C-Reactive Protein Total Protein Albumin Prealbumin Triglycerides Cholesterol LDL Cholesterol Direct HDL Cholesterol Urine pH Urine WBC (Auto) Urine Creatinine Urine Total Protein Fluid Total Protein Vancomycin Trough Rheumatoid Factor Complement C4 Miscellaneous Test Crossmatch 10/30/16 10/30/16 10/30/16 03:28 08:19 08:19 WBC 11.6 H 15.9 H RBC 2.75 L 2.82 L Hgb 7.9 L 8.3 L Hct 24.2 L 25.2 L MCV MCH MCHC RDW 16.7 H 17.2 H Plt Count Lymph % (Auto) [place] % (Auto) 9.8 H Lymph # [place] # 1.1 H Baso # Seg Neutrophils % 74.2 H Seg Neuts % (Manual) Lymphocytes % (Manual) Monocytes % (Manual) Eosinophils % (Manual) Basophils % (Manual) Nucleated RBC % Seg Neutrophils # 8.6 H Seg Neutrophils # Man Lymphocytes # (Manual) Monocytes # (Manual) Eosinophils # (Manual) PT INR Fibrinogen dRVVT Confirm Interp Factor V Activity POC ABG pH POC ABG pCO2 POC ABG pO2 ABG pO2 ABG HCO3 ABG Base Excess ABG Hemoglobin Oxyhemoglobin Sodium Potassium 5.3 H Chloride 97.4 L Carbon Dioxide 19 L BUN 93 H Creatinine 2.6 H Glucose POC Glucose Lactic Acid Calcium Phosphorus Magnesium Direct Bilirubin AST ALT Alkaline Phosphatase Lactate Dehydrogenase Troponin T C-Reactive Protein Total Protein Albumin Prealbumin Triglycerides Cholesterol LDL Cholesterol Direct HDL Cholesterol Urine pH Urine WBC (Auto) Urine Creatinine Urine Total Protein Fluid Total Protein Vancomycin Trough Rheumatoid Factor Complement C4 Miscellaneous Test Crossmatch 10/30/16 10/30/16 10/31/16 17:11 23:56 00:40 WBC RBC Hgb Hct MCV MCH MCHC RDW Plt Count Lymph % (Auto) [place] % (Auto) Lymph # [place] # Baso # Seg Neutrophils % Seg Neuts % (Manual) Lymphocytes % (Manual) Monocytes % (Manual) Eosinophils % (Manual) Basophils % (Manual) Nucleated RBC % Seg Neutrophils # Seg Neutrophils # Man Lymphocytes # (Manual) Monocytes # (Manual) Eosinophils # (Manual) PT INR Fibrinogen dRVVT Confirm Interp Factor V Activity POC ABG pH POC ABG pCO2 POC ABG pO2 ABG pO2 ABG HCO3 ABG Base Excess ABG Hemoglobin Oxyhemoglobin Sodium Potassium Chloride Carbon Dioxide BUN Creatinine Glucose POC Glucose 106 H 117 H 120 H Lactic Acid Calcium Phosphorus Magnesium Direct Bilirubin AST ALT Alkaline Phosphatase Lactate Dehydrogenase Troponin T C-Reactive Protein Total Protein Albumin Prealbumin Triglycerides Cholesterol LDL Cholesterol Direct HDL Cholesterol Urine pH Urine WBC (Auto) Urine Creatinine Urine Total Protein Fluid Total Protein Vancomycin Trough Rheumatoid Factor Complement C4 Miscellaneous Test Crossmatch 10/31/16 10/31/16 10/31/16 05:43 07:15 07:15 WBC 12.1 H RBC 2.63 L Hgb 7.7 L Hct 23.3 L MCV MCH MCHC RDW 16.7 H Plt Count Lymph % (Auto) 11.7 L [place] % (Auto) 7.7 H Lymph # [place] # 0.9 H Baso # Seg Neutrophils % 78.0 H Seg Neuts % (Manual) Lymphocytes % (Manual) Monocytes % (Manual) Eosinophils % (Manual) Basophils % (Manual) Nucleated RBC % Seg Neutrophils # 9.4 H Seg Neutrophils # Man Lymphocytes # (Manual) Monocytes # (Manual) Eosinophils # (Manual) PT INR Fibrinogen dRVVT Confirm Interp Factor V Activity POC ABG pH POC ABG pCO2 POC ABG pO2 ABG pO2 ABG HCO3 ABG Base Excess ABG Hemoglobin Oxyhemoglobin Sodium Potassium Chloride 96.4 L Carbon Dioxide 21 L BUN 99 H Creatinine 2.6 H Glucose 144 H POC Glucose 125 H Lactic Acid Calcium Phosphorus 4.80 H Magnesium Direct Bilirubin AST ALT Alkaline Phosphatase Lactate Dehydrogenase Troponin T C-Reactive Protein Total Protein Albumin Prealbumin Triglycerides Cholesterol LDL Cholesterol Direct HDL Cholesterol Urine pH Urine WBC (Auto) Urine Creatinine Urine Total Protein Fluid Total Protein Vancomycin Trough Rheumatoid Factor Complement C4 Miscellaneous Test Crossmatch 10/31/16 10/31/16 11/01/16 11:46 18:34 00:20 WBC RBC Hgb Hct MCV MCH MCHC RDW Plt Count Lymph % (Auto) [place] % (Auto) Lymph # [place] # Baso # Seg Neutrophils % Seg Neuts % (Manual) Lymphocytes % (Manual) Monocytes % (Manual) Eosinophils % (Manual) Basophils % (Manual) Nucleated RBC % Seg Neutrophils # Seg Neutrophils # Man Lymphocytes # (Manual) Monocytes # (Manual) Eosinophils # (Manual) PT INR Fibrinogen dRVVT Confirm Interp Factor V Activity POC ABG pH POC ABG pCO2 POC ABG pO2 ABG pO2 ABG HCO3 ABG Base Excess ABG Hemoglobin Oxyhemoglobin Sodium Potassium Chloride Carbon Dioxide BUN Creatinine Glucose POC Glucose 159 H 140 H 132 H Lactic Acid Calcium Phosphorus Magnesium Direct Bilirubin AST ALT Alkaline Phosphatase Lactate Dehydrogenase Troponin T C-Reactive Protein Total Protein Albumin Prealbumin Triglycerides Cholesterol LDL Cholesterol Direct HDL Cholesterol Urine pH Urine WBC (Auto) Urine Creatinine Urine Total Protein Fluid Total Protein Vancomycin Trough Rheumatoid Factor Complement C4 Miscellaneous Test Crossmatch 11/01/16 11/01/16 11/01/16 04:55 04:55 06:11 WBC 11.2 H RBC 2.68 L Hgb 7.5 L Hct 23.7 L MCV MCH MCHC RDW 16.1 H Plt Count Lymph % (Auto) [place] % (Auto) 9.8 H Lymph # [place] # 1.1 H Baso # Seg Neutrophils % 70.8 H Seg Neuts % (Manual) Lymphocytes % (Manual) Monocytes % (Manual) Eosinophils % (Manual) Basophils % (Manual) Nucleated RBC % Seg Neutrophils # 7.9 H Seg Neutrophils # Man Lymphocytes # (Manual) Monocytes # (Manual) Eosinophils # (Manual) PT INR Fibrinogen dRVVT Confirm Interp Factor V Activity POC ABG pH POC ABG pCO2 POC ABG pO2 ABG pO2 ABG HCO3 ABG Base Excess ABG Hemoglobin Oxyhemoglobin Sodium Potassium 3.3 L D Chloride Carbon Dioxide BUN 61 H Creatinine 1.9 H Glucose 114 H POC Glucose 115 H Lactic Acid Calcium Phosphorus 1.80 L D Magnesium Direct Bilirubin AST ALT Alkaline Phosphatase Lactate Dehydrogenase Troponin T C-Reactive Protein Total Protein Albumin Prealbumin Triglycerides Cholesterol LDL Cholesterol Direct HDL Cholesterol Urine pH Urine WBC (Auto) Urine Creatinine Urine Total Protein Fluid Total Protein Vancomycin Trough Rheumatoid Factor Complement C4 Miscellaneous Test Crossmatch 11/01/16 11/01/16 11/01/16 12:29 18:23 23:58 WBC RBC Hgb Hct MCV MCH MCHC RDW Plt Count Lymph % (Auto) [place] % (Auto) Lymph # [place] # Baso # Seg Neutrophils % Seg Neuts % (Manual) Lymphocytes % (Manual) Monocytes % (Manual) Eosinophils % (Manual) Basophils % (Manual) Nucleated RBC % Seg Neutrophils # Seg Neutrophils # Man Lymphocytes # (Manual) Monocytes # (Manual) Eosinophils # (Manual) PT INR Fibrinogen dRVVT Confirm Interp Factor V Activity POC ABG pH POC ABG pCO2 POC ABG pO2 ABG pO2 ABG HCO3 ABG Base Excess ABG Hemoglobin Oxyhemoglobin Sodium Potassium Chloride Carbon Dioxide BUN Creatinine Glucose POC Glucose 142 H 143 H 128 H Lactic Acid Calcium Phosphorus Magnesium Direct Bilirubin AST ALT Alkaline Phosphatase Lactate Dehydrogenase Troponin T C-Reactive Protein Total Protein Albumin Prealbumin Triglycerides Cholesterol LDL Cholesterol Direct HDL Cholesterol Urine pH Urine WBC (Auto) Urine Creatinine Urine Total Protein Fluid Total Protein Vancomycin Trough Rheumatoid Factor Complement C4 Miscellaneous Test Crossmatch 11/02/16 11/02/16 11/02/16 04:16 05:29 11:58 WBC RBC Hgb Hct MCV MCH MCHC RDW Plt Count Lymph % (Auto) [place] % (Auto) Lymph # [place] # Baso # Seg Neutrophils % Seg Neuts % (Manual) Lymphocytes % (Manual) Monocytes % (Manual) Eosinophils % (Manual) Basophils % (Manual) Nucleated RBC % Seg Neutrophils # Seg Neutrophils # Man Lymphocytes # (Manual) Monocytes # (Manual) Eosinophils # (Manual) PT INR Fibrinogen dRVVT Confirm Interp Factor V Activity POC ABG pH POC ABG pCO2 POC ABG pO2 ABG pO2 ABG HCO3 ABG Base Excess ABG Hemoglobin Oxyhemoglobin Sodium Potassium 3.1 L Chloride Carbon Dioxide BUN 73 H Creatinine 2.3 H Glucose 112 H POC Glucose 135 H 149 H Lactic Acid Calcium Phosphorus Magnesium Direct Bilirubin AST ALT Alkaline Phosphatase Lactate Dehydrogenase Troponin T C-Reactive Protein Total Protein Albumin Prealbumin Triglycerides Cholesterol LDL Cholesterol Direct HDL Cholesterol Urine pH Urine WBC (Auto) Urine Creatinine Urine Total Protein Fluid Total Protein Vancomycin Trough Rheumatoid Factor Complement C4 Miscellaneous Test Crossmatch 11/02/16 11/02/16 11/03/16 17:42 22:54 06:00 WBC RBC Hgb Hct MCV MCH MCHC RDW Plt Count Lymph % (Auto) [place] % (Auto) Lymph # [place] # Baso # Seg Neutrophils % Seg Neuts % (Manual) Lymphocytes % (Manual) Monocytes % (Manual) Eosinophils % (Manual) Basophils % (Manual) Nucleated RBC % Seg Neutrophils # Seg Neutrophils # Man Lymphocytes # (Manual) Monocytes # (Manual) Eosinophils # (Manual) PT INR Fibrinogen dRVVT Confirm Interp Factor V Activity POC ABG pH POC ABG pCO2 POC ABG pO2 ABG pO2 ABG HCO3 ABG Base Excess ABG Hemoglobin Oxyhemoglobin Sodium Potassium Chloride 96.7 L Carbon Dioxide BUN 41 H Creatinine 1.5 H Glucose 145 H POC Glucose 182 H 115 H Lactic Acid Calcium Phosphorus 1.60 L D Magnesium 1.50 L Direct Bilirubin AST ALT Alkaline Phosphatase Lactate Dehydrogenase Troponin T C-Reactive Protein Total Protein Albumin Prealbumin Triglycerides Cholesterol LDL Cholesterol Direct HDL Cholesterol Urine pH Urine WBC (Auto) Urine Creatinine Urine Total Protein Fluid Total Protein Vancomycin Trough Rheumatoid Factor Complement C4 Miscellaneous Test Crossmatch 11/03/16 11/03/16 11/03/16 11:53 17:45 23:37 WBC RBC Hgb Hct MCV MCH MCHC RDW Plt Count Lymph % (Auto) [place] % (Auto) Lymph # [place] # Baso # Seg Neutrophils % Seg Neuts % (Manual) Lymphocytes % (Manual) Monocytes % (Manual) Eosinophils % (Manual) Basophils % (Manual) Nucleated RBC % Seg Neutrophils # Seg Neutrophils # Man Lymphocytes # (Manual) Monocytes # (Manual) Eosinophils # (Manual) PT INR Fibrinogen dRVVT Confirm Interp Factor V Activity POC ABG pH POC ABG pCO2 POC ABG pO2 ABG pO2 ABG HCO3 ABG Base Excess ABG Hemoglobin Oxyhemoglobin Sodium Potassium Chloride Carbon Dioxide BUN Creatinine Glucose POC Glucose 131 H 134 H 113 H Lactic Acid Calcium Phosphorus Magnesium Direct Bilirubin AST ALT Alkaline Phosphatase Lactate Dehydrogenase Troponin T C-Reactive Protein Total Protein Albumin Prealbumin Triglycerides Cholesterol LDL Cholesterol Direct HDL Cholesterol Urine pH Urine WBC (Auto) Urine Creatinine Urine Total Protein Fluid Total Protein Vancomycin Trough Rheumatoid Factor Complement C4 Miscellaneous Test Crossmatch 11/04/16 11/04/16 11/04/16 05:41 06:00 12:10 WBC RBC Hgb Hct MCV MCH MCHC RDW Plt Count Lymph % (Auto) [place] % (Auto) Lymph # [place] # Baso # Seg Neutrophils % Seg Neuts % (Manual) Lymphocytes % (Manual) Monocytes % (Manual) Eosinophils % (Manual) Basophils % (Manual) Nucleated RBC % Seg Neutrophils # Seg Neutrophils # Man Lymphocytes # (Manual) Monocytes # (Manual) Eosinophils # (Manual) PT INR Fibrinogen dRVVT Confirm Interp Factor V Activity POC ABG pH POC ABG pCO2 POC ABG pO2 ABG pO2 ABG HCO3 ABG Base Excess ABG Hemoglobin Oxyhemoglobin Sodium Potassium Chloride 96.7 L Carbon Dioxide BUN 52 H Creatinine 1.9 H Glucose 126 H POC Glucose 137 H 191 H Lactic Acid Calcium Phosphorus Magnesium Direct Bilirubin AST ALT Alkaline Phosphatase Lactate Dehydrogenase Troponin T C-Reactive Protein Total Protein Albumin Prealbumin Triglycerides Cholesterol LDL Cholesterol Direct HDL Cholesterol Urine pH Urine WBC (Auto) Urine Creatinine Urine Total Protein Fluid Total Protein Vancomycin Trough Rheumatoid Factor Complement C4 Miscellaneous Test Crossmatch 11/04/16 11/05/16 11/05/16 22:57 03:10 05:10 WBC RBC Hgb Hct MCV MCH MCHC RDW Plt Count Lymph % (Auto) [place] % (Auto) Lymph # [place] # Baso # Seg Neutrophils % Seg Neuts % (Manual) Lymphocytes % (Manual) Monocytes % (Manual) Eosinophils % (Manual) Basophils % (Manual) Nucleated RBC % Seg Neutrophils # Seg Neutrophils # Man Lymphocytes # (Manual) Monocytes # (Manual) Eosinophils # (Manual) PT INR Fibrinogen dRVVT Confirm Interp Factor V Activity POC ABG pH POC ABG pCO2 POC ABG pO2 ABG pO2 ABG HCO3 ABG Base Excess ABG Hemoglobin Oxyhemoglobin Sodium 136 L Potassium Chloride 97.2 L Carbon Dioxide BUN 32 H Creatinine 1.3 H Glucose 123 H POC Glucose 125 H 108 H Lactic Acid Calcium 7.8 L Phosphorus Magnesium Direct Bilirubin AST ALT Alkaline Phosphatase Lactate Dehydrogenase Troponin T C-Reactive Protein Total Protein Albumin Prealbumin Triglycerides Cholesterol LDL Cholesterol Direct HDL Cholesterol Urine pH Urine WBC (Auto) Urine Creatinine Urine Total Protein Fluid Total Protein Vancomycin Trough Rheumatoid Factor Complement C4 Miscellaneous Test Crossmatch 11/05/16 11/05/16 11/05/16 12:23 13:09 13:25 WBC RBC Hgb Hct MCV MCH MCHC RDW Plt Count Lymph % (Auto) [place] % (Auto) Lymph # [place] # Baso # Seg Neutrophils % Seg Neuts % (Manual) Lymphocytes % (Manual) Monocytes % (Manual) Eosinophils % (Manual) Basophils % (Manual) Nucleated RBC % Seg Neutrophils # Seg Neutrophils # Man Lymphocytes # (Manual) Monocytes # (Manual) Eosinophils # (Manual) PT INR Fibrinogen dRVVT Confirm Interp Factor V Activity POC ABG pH POC ABG pCO2 POC ABG pO2 ABG pO2 ABG HCO3 ABG Base Excess ABG Hemoglobin Oxyhemoglobin Sodium Potassium Chloride Carbon Dioxide BUN Creatinine Glucose POC Glucose 124 H Lactic Acid Calcium Phosphorus Magnesium Direct Bilirubin AST ALT Alkaline Phosphatase Lactate Dehydrogenase Troponin T C-Reactive Protein 11.40 H Total Protein Albumin Prealbumin Triglycerides Cholesterol LDL Cholesterol Direct HDL Cholesterol Urine pH 9.0 H Urine WBC (Auto) Urine Creatinine Urine Total Protein Fluid Total Protein Vancomycin Trough Rheumatoid Factor Complement C4 Miscellaneous Test Crossmatch 11/05/16 11/05/16 11/05/16 13:25 17:54 23:42 WBC RBC Hgb Hct MCV MCH MCHC RDW Plt Count Lymph % (Auto) [place] % (Auto) Lymph # [place] # Baso # Seg Neutrophils % Seg Neuts % (Manual) Lymphocytes % (Manual) Monocytes % (Manual) Eosinophils % (Manual) Basophils % (Manual) Nucleated RBC % Seg Neutrophils # Seg Neutrophils # Man Lymphocytes # (Manual) Monocytes # (Manual) Eosinophils # (Manual) PT INR Fibrinogen dRVVT Confirm Interp Factor V Activity POC ABG pH POC ABG pCO2 POC ABG pO2 ABG pO2 ABG HCO3 ABG Base Excess ABG Hemoglobin Oxyhemoglobin Sodium Potassium Chloride Carbon Dioxide BUN Creatinine Glucose POC Glucose 114 H 134 H Lactic Acid Calcium Phosphorus Magnesium Direct Bilirubin AST ALT Alkaline Phosphatase Lactate Dehydrogenase Troponin T C-Reactive Protein Total Protein Albumin Prealbumin Triglycerides Cholesterol LDL Cholesterol Direct HDL Cholesterol Urine pH Urine WBC (Auto) Urine Creatinine Urine Total Protein Fluid Total Protein Vancomycin Trough Rheumatoid Factor Complement C4 Miscellaneous Test Flexitest 1 H Crossmatch 11/06/16 11/06/16 11/06/16 04:56 06:25 06:25 WBC RBC 2.50 L Hgb 7.3 L Hct 22.5 L MCV MCH MCHC RDW 16.9 H Plt Count Lymph % (Auto) [place] % (Auto) 10.5 H Lymph # [place] # 1.1 H Baso # Seg Neutrophils % Seg Neuts % (Manual) Lymphocytes % (Manual) Monocytes % (Manual) Eosinophils % (Manual) Basophils % (Manual) Nucleated RBC % Seg Neutrophils # Seg Neutrophils # Man Lymphocytes # (Manual) Monocytes # (Manual) Eosinophils # (Manual) PT INR Fibrinogen dRVVT Confirm Interp Factor V Activity POC ABG pH POC ABG pCO2 POC ABG pO2 ABG pO2 ABG HCO3 ABG Base Excess ABG Hemoglobin Oxyhemoglobin Sodium Potassium 5.1 H Chloride 95.9 L Carbon Dioxide BUN 52 H Creatinine 1.8 H Glucose 117 H POC Glucose 120 H Lactic Acid Calcium Phosphorus Magnesium Direct Bilirubin AST 103 H ALT 77 H Alkaline Phosphatase 285 H Lactate Dehydrogenase Troponin T C-Reactive Protein Total Protein 6.2 L Albumin 1.8 L Prealbumin 0.180 L Triglycerides Cholesterol LDL Cholesterol Direct HDL Cholesterol Urine pH Urine WBC (Auto) Urine Creatinine Urine Total Protein Fluid Total Protein Vancomycin Trough Rheumatoid Factor Complement C4 Miscellaneous Test Crossmatch 11/06/16 11/06/1611/06/17 11:56 17:14 23:52 WBC RBC Hgb Hct MCV MCH MCHC RDW Plt Count Lymph % (Auto) [place] % (Auto) Lymph # [place] # Baso # Seg Neutrophils % Seg Neuts % (Manual) Lymphocytes % (Manual) Monocytes % (Manual) Eosinophils % (Manual) Basophils % (Manual) Nucleated RBC % Seg Neutrophils # Seg Neutrophils # Man Lymphocytes # (Manual) Monocytes # (Manual) Eosinophils # (Manual) PT INR Fibrinogen dRVVT Confirm Interp Factor V Activity POC ABG pH POC ABG pCO2 POC ABG pO2 ABG pO2 ABG HCO3 ABG Base Excess ABG Hemoglobin Oxyhemoglobin Sodium Potassium Chloride Carbon Dioxide BUN Creatinine Glucose POC Glucose 141 H 125 H 130 H Lactic Acid Calcium Phosphorus Magnesium Direct Bilirubin AST ALT Alkaline Phosphatase Lactate Dehydrogenase Troponin T C-Reactive Protein Total Protein Albumin Prealbumin Triglycerides Cholesterol LDL Cholesterol Direct HDL Cholesterol Urine pH Urine WBC (Auto) Urine Creatinine Urine Total Protein Fluid Total Protein Vancomycin Trough Rheumatoid Factor Complement C4 Miscellaneous Test Crossmatch 11/07/16 11/07/16 11/07/16 06:30 06:30 09:37 WBC RBC 2.18 L Hgb 6.3 L Hct 19.7 L* MCV MCH MCHC RDW 16.8 H Plt Count Lymph % (Auto) [place] % (Auto) 10.0 H Lymph # [place] # 1.0 H Baso # Seg Neutrophils % Seg Neuts % (Manual) Lymphocytes % (Manual) Monocytes % (Manual) Eosinophils % (Manual) Basophils % (Manual) Nucleated RBC % Seg Neutrophils # Seg Neutrophils # Man Lymphocytes # (Manual) Monocytes # (Manual) Eosinophils # (Manual) PT INR Fibrinogen dRVVT Confirm Interp Factor V Activity POC ABG pH POC ABG pCO2 POC ABG pO2 ABG pO2 ABG HCO3 ABG Base Excess ABG Hemoglobin Oxyhemoglobin Sodium 135 L Potassium Chloride 95.6 L Carbon Dioxide BUN 70 H Creatinine 2.0 H Glucose 126 H POC Glucose Lactic Acid Calcium Phosphorus Magnesium Direct Bilirubin AST ALT Alkaline Phosphatase Lactate Dehydrogenase Troponin T C-Reactive Protein Total Protein Albumin Prealbumin Triglycerides Cholesterol LDL Cholesterol Direct HDL Cholesterol Urine pH Urine WBC (Auto) Urine Creatinine Urine Total Protein Fluid Total Protein Vancomycin Trough Rheumatoid Factor Complement C4 Miscellaneous Test Crossmatch See Detail 11/07/16 11/07/16 11/07/16 12:52 18:51 21:26 WBC RBC Hgb Hct MCV MCH MCHC RDW Plt Count Lymph % (Auto) [place] % (Auto) Lymph # [place] # Baso # Seg Neutrophils % Seg Neuts % (Manual) Lymphocytes % (Manual) Monocytes % (Manual) Eosinophils % (Manual) Basophils % (Manual) Nucleated RBC % Seg Neutrophils # Seg Neutrophils # Man Lymphocytes # (Manual) Monocytes # (Manual) Eosinophils # (Manual) PT INR Fibrinogen dRVVT Confirm Interp Factor V Activity POC ABG pH 7.523 H POC ABG pCO2 34.6 L POC ABG pO2 53 L ABG pO2 ABG HCO3 ABG Base Excess ABG Hemoglobin Oxyhemoglobin Sodium Potassium Chloride Carbon Dioxide BUN Creatinine Glucose POC Glucose 142 H 155 H Lactic Acid Calcium Phosphorus Magnesium Direct Bilirubin AST ALT Alkaline Phosphatase Lactate Dehydrogenase Troponin T C-Reactive Protein Total Protein Albumin Prealbumin Triglycerides Cholesterol LDL Cholesterol Direct HDL Cholesterol Urine pH Urine WBC (Auto) Urine Creatinine Urine Total Protein Fluid Total Protein Vancomycin Trough Rheumatoid Factor Complement C4 Miscellaneous Test Crossmatch 11/07/16 11/08/16 11/08/16 21:34 13:03 23:37 WBC RBC 2.63 L Hgb 7.7 L Hct 22.7 L MCV MCH MCHC RDW 17.0 H Plt Count Lymph % (Auto) [place] % (Auto) Lymph # [place] # Baso # Seg Neutrophils % Seg Neuts % (Manual) Lymphocytes % (Manual) Monocytes % (Manual) Eosinophils % (Manual) Basophils % (Manual) Nucleated RBC % Seg Neutrophils # Seg Neutrophils # Man Lymphocytes # (Manual) Monocytes # (Manual) Eosinophils # (Manual) PT INR Fibrinogen dRVVT Confirm Interp Factor V Activity POC ABG pH 7.478 H POC ABG pCO2 34.0 L POC ABG pO2 50 L ABG pO2 ABG HCO3 ABG Base Excess ABG Hemoglobin Oxyhemoglobin Sodium Potassium Chloride Carbon Dioxide BUN Creatinine Glucose POC Glucose 113 H Lactic Acid Calcium Phosphorus Magnesium Direct Bilirubin AST ALT Alkaline Phosphatase Lactate Dehydrogenase Troponin T C-Reactive Protein Total Protein Albumin Prealbumin Triglycerides Cholesterol LDL Cholesterol Direct HDL Cholesterol Urine pH Urine WBC (Auto) Urine Creatinine Urine Total Protein Fluid Total Protein Vancomycin Trough Rheumatoid Factor Complement C4 Miscellaneous Test Crossmatch 11/09/16 11/09/16 11/09/16 04:35 10:15 18:21 WBC RBC 2.68 L Hgb 7.8 L Hct 23.3 L MCV MCH MCHC RDW 17.0 H Plt Count Lymph % (Auto) [place] % (Auto) 12.1 H Lymph # [place] # 1.1 H Baso # Seg Neutrophils % Seg Neuts % (Manual) Lymphocytes % (Manual) Monocytes % (Manual) Eosinophils % (Manual) Basophils % (Manual) Nucleated RBC % Seg Neutrophils # Seg Neutrophils # Man Lymphocytes # (Manual) Monocytes # (Manual) Eosinophils # (Manual) PT INR Fibrinogen dRVVT Confirm Interp Factor V Activity POC ABG pH POC ABG pCO2 POC ABG pO2 ABG pO2 ABG HCO3 ABG Base Excess ABG Hemoglobin Oxyhemoglobin Sodium Potassium Chloride Carbon Dioxide BUN 51 H Creatinine 1.8 H Glucose POC Glucose 60 L Lactic Acid Calcium 8.3 L Phosphorus Magnesium Direct Bilirubin AST ALT Alkaline Phosphatase Lactate Dehydrogenase Troponin T C-Reactive Protein Total Protein Albumin Prealbumin Triglycerides Cholesterol LDL Cholesterol Direct HDL Cholesterol Urine pH Urine WBC (Auto) Urine Creatinine Urine Total Protein Fluid Total Protein Vancomycin Trough Rheumatoid Factor Complement C4 Miscellaneous Test Crossmatch 11/09/16 11/10/16 11/10/16 18:55 07:00 11:51 WBC RBC Hgb Hct MCV MCH MCHC RDW Plt Count Lymph % (Auto) [place] % (Auto) Lymph # [place] # Baso # Seg Neutrophils % Seg Neuts % (Manual) Lymphocytes % (Manual) Monocytes % (Manual) Eosinophils % (Manual) Basophils % (Manual) Nucleated RBC % Seg Neutrophils # Seg Neutrophils # Man Lymphocytes # (Manual) Monocytes # (Manual) Eosinophils # (Manual) PT INR Fibrinogen dRVVT Confirm Interp Factor V Activity POC ABG pH POC ABG pCO2 POC ABG pO2 ABG pO2 ABG HCO3 ABG Base Excess ABG Hemoglobin Oxyhemoglobin Sodium Potassium 3.0 L D Chloride 97.4 L Carbon Dioxide BUN 28 H Creatinine 1.3 H Glucose POC Glucose 68 L 120 H Lactic Acid Calcium 7.8 L Phosphorus Magnesium Direct Bilirubin AST ALT Alkaline Phosphatase Lactate Dehydrogenase Troponin T C-Reactive Protein Total Protein Albumin Prealbumin Triglycerides Cholesterol LDL Cholesterol Direct HDL Cholesterol Urine pH Urine WBC (Auto) Urine Creatinine Urine Total Protein Fluid Total Protein Vancomycin Trough Rheumatoid Factor Complement C4 Miscellaneous Test Crossmatch 11/10/16 11/11/16 11/11/16 14:20 06:59 06:59 WBC RBC 2.81 L Hgb 8.1 L Hct 24.4 L MCV MCH MCHC RDW 16.4 H Plt Count Lymph % (Auto) [place] % (Auto) 10.8 H Lymph # [place] # 1.0 H Baso # Seg Neutrophils % Seg Neuts % (Manual) Lymphocytes % (Manual) Monocytes % (Manual) Eosinophils % (Manual) Basophils % (Manual) Nucleated RBC % Seg Neutrophils # Seg Neutrophils # Man Lymphocytes # (Manual) Monocytes # (Manual) Eosinophils # (Manual) PT INR Fibrinogen dRVVT Confirm Interp Factor V Activity POC ABG pH POC ABG pCO2 POC ABG pO2 ABG pO2 ABG HCO3 ABG Base Excess ABG Hemoglobin Oxyhemoglobin Sodium Potassium Chloride Carbon Dioxide BUN Creatinine Glucose POC Glucose Lactic Acid Calcium Phosphorus Magnesium Direct Bilirubin AST ALT Alkaline Phosphatase Lactate Dehydrogenase 196 H Troponin T C-Reactive Protein Total Protein 6.1 L Albumin Prealbumin Triglycerides Cholesterol LDL Cholesterol Direct HDL Cholesterol Urine pH Urine WBC (Auto) Urine Creatinine Urine Total Protein Fluid Total Protein < 3.0 L Vancomycin Trough Rheumatoid Factor Complement C4 Miscellaneous Test Crossmatch 11/11/16 11/11/16 11/12/16 06:59 09:50 04:00 WBC RBC Hgb Hct MCV MCH MCHC RDW Plt Count Lymph % (Auto) [place] % (Auto) Lymph # [place] # Baso # Seg Neutrophils % Seg Neuts % (Manual) Lymphocytes % (Manual) Monocytes % (Manual) Eosinophils % (Manual) Basophils % (Manual) Nucleated RBC % Seg Neutrophils # Seg Neutrophils # Man Lymphocytes # (Manual) Monocytes # (Manual) Eosinophils # (Manual) PT INR 1.18 H Fibrinogen dRVVT Confirm Interp Factor V Activity POC ABG pH POC ABG pCO2 POC ABG pO2 ABG pO2 ABG HCO3 ABG Base Excess ABG Hemoglobin Oxyhemoglobin Sodium 136 L 133 L Potassium Chloride 96.1 L 94.8 L Carbon Dioxide 21 L BUN 37 H 42 H Creatinine 1.8 H 2.0 H Glucose POC Glucose Lactic Acid Calcium Phosphorus Magnesium Direct Bilirubin AST ALT Alkaline Phosphatase Lactate Dehydrogenase Troponin T C-Reactive Protein Total Protein Albumin Prealbumin Triglycerides Cholesterol LDL Cholesterol Direct HDL Cholesterol Urine pH Urine WBC (Auto) Urine Creatinine Urine Total Protein Fluid Total Protein Vancomycin Trough Rheumatoid Factor Complement C4 Miscellaneous Test Crossmatch 11/12/16 11/12/16 11/13/16 04:00 23:55 05:53 WBC RBC Hgb 8.9 L Hct 27.2 L MCV MCH MCHC RDW Plt Count Lymph % (Auto) [place] % (Auto) Lymph # [place] # [place] # Seg Neutrophils % Seg Neuts % (Manual) Lymphocytes % (Manual) Monocytes % (Manual) Eosinophils % (Manual) Basophils % (Manual) Nucleated RBC % Seg Neutrophils # Seg Neutrophils # Man Lymphocytes # (Manual) Monocytes # (Manual) Eosinophils # (Manual) PT INR Fibrinogen dRVVT Confirm Interp Factor V Activity POC ABG pH POC ABG pCO2 POC ABG pO2 ABG pO2 ABG HCO3 ABG Base Excess ABG Hemoglobin Oxyhemoglobin Sodium Potassium Chloride Carbon Dioxide BUN Creatinine Glucose POC Glucose 132 H 120 H Lactic Acid Calcium Phosphorus Magnesium Direct Bilirubin AST ALT Alkaline Phosphatase Lactate Dehydrogenase Troponin T C-Reactive Protein Total Protein Albumin Prealbumin Triglycerides Cholesterol LDL Cholesterol Direct HDL Cholesterol Urine pH Urine WBC (Auto) Urine Creatinine Urine Total Protein Fluid Total Protein Vancomycin Trough Rheumatoid Factor Complement C4 Miscellaneous Test Crossmatch 11/13/16 11/13/16 11/13/16 11:43 17:09 23:41 WBC RBC Hgb Hct MCV MCH MCHC RDW Plt Count Lymph % (Auto) [place] % (Auto) Lymph # [place] # [place] # Seg Neutrophils % Seg Neuts % (Manual) Lymphocytes % (Manual) Monocytes % (Manual) Eosinophils % (Manual) Basophils % (Manual) Nucleated RBC % Seg Neutrophils # Seg Neutrophils # Man Lymphocytes # (Manual) Monocytes # (Manual) Eosinophils # (Manual) PT INR Fibrinogen dRVVT Confirm Interp Factor V Activity POC ABG pH POC ABG pCO2 POC ABG pO2 ABG pO2 ABG HCO3 ABG Base Excess ABG Hemoglobin Oxyhemoglobin Sodium Potassium Chloride Carbon Dioxide BUN Creatinine Glucose POC Glucose 114 H 113 H 108 H Lactic Acid Calcium Phosphorus Magnesium Direct Bilirubin AST ALT Alkaline Phosphatase Lactate Dehydrogenase Troponin T C-Reactive Protein Total Protein Albumin Prealbumin Triglycerides Cholesterol LDL Cholesterol Direct HDL Cholesterol Urine pH Urine WBC (Auto) Urine Creatinine Urine Total Protein Fluid Total Protein Vancomycin Trough Rheumatoid Factor Complement C4 Miscellaneous Test Crossmatch 11/13/16 11/15/16 11/15/16 Unknown 00:37 03:30 WBC 11.2 H RBC 2.72 L Hgb 7.6 L Hct 23.4 L MCV MCH MCHC RDW 16.5 H Plt Count Lymph % (Auto) [place] % (Auto) Lymph # [place] # Baso # Seg Neutrophils % Seg Neuts % (Manual) Lymphocytes % (Manual) Monocytes % (Manual) Eosinophils % (Manual) Basophils % (Manual) Nucleated RBC % Seg Neutrophils # Seg Neutrophils # Man Lymphocytes # (Manual) Monocytes # (Manual) Eosinophils # (Manual) PT INR Fibrinogen dRVVT Confirm Interp Factor V Activity POC ABG pH POC ABG pCO2 POC ABG pO2 ABG pO2 ABG HCO3 ABG Base Excess ABG Hemoglobin Oxyhemoglobin Sodium 135 L Potassium Chloride 95.2 L Carbon Dioxide BUN 52 H Creatinine 2.2 H Glucose POC Glucose 108 H Lactic Acid Calcium Phosphorus Magnesium Direct Bilirubin AST ALT Alkaline Phosphatase Lactate Dehydrogenase Troponin T C-Reactive Protein Total Protein Albumin Prealbumin Triglycerides Cholesterol LDL Cholesterol Direct HDL Cholesterol Urine pH Urine WBC (Auto) Urine Creatinine Urine Total Protein Fluid Total Protein Vancomycin Trough Rheumatoid Factor Complement C4 Miscellaneous Test Crossmatch 11/15/16 11/15/16 11/15/16 03:30 05:04 11:50 WBC RBC Hgb Hct MCV MCH MCHC RDW Plt Count Lymph % (Auto) [place] % (Auto) Lymph # [place] # Baso # Seg Neutrophils % Seg Neuts % (Manual) Lymphocytes % (Manual) Monocytes % (Manual) Eosinophils % (Manual) Basophils % (Manual) Nucleated RBC % Seg Neutrophils # Seg Neutrophils # Man Lymphocytes # (Manual) Monocytes # (Manual) Eosinophils # (Manual) PT INR Fibrinogen dRVVT Confirm Interp Factor V Activity POC ABG pH POC ABG pCO2 POC ABG pO2 ABG pO2 ABG HCO3 ABG Base Excess ABG Hemoglobin Oxyhemoglobin Sodium Potassium 3.4 L Chloride Carbon Dioxide BUN 25 H Creatinine 1.5 H Glucose 103 H POC Glucose 121 H 144 H Lactic Acid Calcium Phosphorus Magnesium Direct Bilirubin AST ALT Alkaline Phosphatase Lactate Dehydrogenase Troponin T C-Reactive Protein Total Protein Albumin Prealbumin Triglycerides Cholesterol LDL Cholesterol Direct HDL Cholesterol Urine pH Urine WBC (Auto) Urine Creatinine Urine Total Protein Fluid Total Protein Vancomycin Trough Rheumatoid Factor Complement C4 Miscellaneous Test Crossmatch 11/15/16 11/15/16 11/16/16 21:28 23:20 11:44 WBC RBC Hgb Hct MCV MCH MCHC RDW Plt Count Lymph % (Auto) [place] % (Auto) Lymph # [place] # Baso # Seg Neutrophils % Seg Neuts % (Manual) Lymphocytes % (Manual) Monocytes % (Manual) Eosinophils % (Manual) Basophils % (Manual) Nucleated RBC % Seg Neutrophils # Seg Neutrophils # Man Lymphocytes # (Manual) Monocytes # (Manual) Eosinophils # (Manual) PT INR Fibrinogen dRVVT Confirm Interp Factor V Activity POC ABG pH 7.462 H POC ABG pCO2 POC ABG pO2 71 L ABG pO2 ABG HCO3 ABG Base Excess ABG Hemoglobin Oxyhemoglobin Sodium Potassium Chloride Carbon Dioxide BUN Creatinine Glucose POC Glucose 116 H 133 H Lactic Acid Calcium Phosphorus Magnesium Direct Bilirubin AST ALT Alkaline Phosphatase Lactate Dehydrogenase Troponin T C-Reactive Protein Total Protein Albumin Prealbumin Triglycerides Cholesterol LDL Cholesterol Direct HDL Cholesterol Urine pH Urine WBC (Auto) Urine Creatinine Urine Total Protein Fluid Total Protein Vancomycin Trough Rheumatoid Factor Complement C4 Miscellaneous Test Crossmatch 11/16/16 11/16/16 11/16/16 12:20 17:05 23:35 WBC 11.7 H RBC 2.73 L Hgb 7.6 L Hct 23.7 L MCV MCH MCHC RDW 16.6 H Plt Count Lymph % (Auto) [place] % (Auto) Lymph # [place] # Baso # Seg Neutrophils % Seg Neuts % (Manual) Lymphocytes % (Manual) Monocytes % (Manual) Eosinophils % (Manual) Basophils % (Manual) Nucleated RBC % Seg Neutrophils # Seg Neutrophils # Man Lymphocytes # (Manual) Monocytes # (Manual) Eosinophils # (Manual) PT INR Fibrinogen dRVVT Confirm Interp Factor V Activity POC ABG pH POC ABG pCO2 POC ABG pO2 ABG pO2 ABG HCO3 ABG Base Excess ABG Hemoglobin Oxyhemoglobin Sodium Potassium Chloride Carbon Dioxide BUN Creatinine Glucose POC Glucose 154 H 125 H Lactic Acid Calcium Phosphorus Magnesium Direct Bilirubin AST ALT Alkaline Phosphatase Lactate Dehydrogenase Troponin T C-Reactive Protein Total Protein Albumin Prealbumin Triglycerides Cholesterol LDL Cholesterol Direct HDL Cholesterol Urine pH Urine WBC (Auto) Urine Creatinine Urine Total Protein Fluid Total Protein Vancomycin Trough Rheumatoid Factor Complement C4 Miscellaneous Test Crossmatch 11/17/16 11/17/16 11/17/16 03:20 03:20 03:20 WBC RBC 2.55 L Hgb 7.3 L Hct 21.9 L MCV MCH MCHC RDW 16.6 H Plt Count Lymph % (Auto) [place] % (Auto) 11.5 H Lymph # [place] # 1.1 H Baso # Seg Neutrophils % Seg Neuts % (Manual) Lymphocytes % (Manual) Monocytes % (Manual) Eosinophils % (Manual) Basophils % (Manual) Nucleated RBC % Seg Neutrophils # Seg Neutrophils # Man Lymphocytes # (Manual) Monocytes # (Manual) Eosinophils # (Manual) PT 16.8 H INR 1.37 H Fibrinogen dRVVT Confirm Interp Factor V Activity POC ABG pH POC ABG pCO2 POC ABG pO2 ABG pO2 ABG HCO3 ABG Base Excess ABG Hemoglobin Oxyhemoglobin Sodium Potassium 3.5 L Chloride Carbon Dioxide BUN 21 H Creatinine Glucose POC Glucose Lactic Acid Calcium 7.9 L Phosphorus Magnesium Direct Bilirubin AST ALT Alkaline Phosphatase Lactate Dehydrogenase Troponin T C-Reactive Protein Total Protein Albumin Prealbumin Triglycerides Cholesterol LDL Cholesterol Direct HDL Cholesterol Urine pH Urine WBC (Auto) Urine Creatinine Urine Total Protein Fluid Total Protein Vancomycin Trough Rheumatoid Factor Complement C4 Miscellaneous Test Crossmatch 11/17/16 11/17/16 11/17/16 06:34 11:21 21:22 WBC RBC Hgb Hct MCV MCH MCHC RDW Plt Count Lymph % (Auto) [place] % (Auto) Lymph # [place] # Baso # Seg Neutrophils % Seg Neuts % (Manual) Lymphocytes % (Manual) Monocytes % (Manual) Eosinophils % (Manual) Basophils % (Manual) Nucleated RBC % Seg Neutrophils # Seg Neutrophils # Man Lymphocytes # (Manual) Monocytes # (Manual) Eosinophils # (Manual) PT INR Fibrinogen dRVVT Confirm Interp Factor V Activity POC ABG pH 7.467 H POC ABG pCO2 POC ABG pO2 73 L ABG pO2 ABG HCO3 ABG Base Excess ABG Hemoglobin Oxyhemoglobin Sodium Potassium Chloride Carbon Dioxide BUN Creatinine Glucose POC Glucose 121 H 119 H Lactic Acid Calcium Phosphorus Magnesium Direct Bilirubin AST ALT Alkaline Phosphatase Lactate Dehydrogenase Troponin T C-Reactive Protein Total Protein Albumin Prealbumin Triglycerides Cholesterol LDL Cholesterol Direct HDL Cholesterol Urine pH Urine WBC (Auto) Urine Creatinine Urine Total Protein Fluid Total Protein Vancomycin Trough Rheumatoid Factor Complement C4 Miscellaneous Test Crossmatch 11/18/16 11/18/16 11/19/16 12:16 17:19 00:00 WBC RBC Hgb Hct MCV MCH MCHC RDW Plt Count Lymph % (Auto) [place] % (Auto) Lymph # [place] # Baso # Seg Neutrophils % Seg Neuts % (Manual) Lymphocytes % (Manual) Monocytes % (Manual) Eosinophils % (Manual) Basophils % (Manual) Nucleated RBC % Seg Neutrophils # Seg Neutrophils # Man Lymphocytes # (Manual) Monocytes # (Manual) Eosinophils # (Manual) PT INR Fibrinogen dRVVT Confirm Interp Factor V Activity POC ABG pH POC ABG pCO2 POC ABG pO2 ABG pO2 ABG HCO3 ABG Base Excess ABG Hemoglobin Oxyhemoglobin Sodium Potassium Chloride Carbon Dioxide BUN Creatinine Glucose POC Glucose 124 H 162 H 139 H Lactic Acid Calcium Phosphorus Magnesium Direct Bilirubin AST ALT Alkaline Phosphatase Lactate Dehydrogenase Troponin T C-Reactive Protein Total Protein Albumin Prealbumin Triglycerides Cholesterol LDL Cholesterol Direct HDL Cholesterol Urine pH Urine WBC (Auto) Urine Creatinine Urine Total Protein Fluid Total Protein Vancomycin Trough Rheumatoid Factor Complement C4 Miscellaneous Test Crossmatch 11/19/16 11/19/16 11/20/16 05:00 12:43 00:40 WBC RBC Hgb Hct MCV MCH MCHC RDW Plt Count Lymph % (Auto) [place] % (Auto) Lymph # [place] # Baso # Seg Neutrophils % Seg Neuts % (Manual) Lymphocytes % (Manual) Monocytes % (Manual) Eosinophils % (Manual) Basophils % (Manual) Nucleated RBC % Seg Neutrophils # Seg Neutrophils # Man Lymphocytes # (Manual) Monocytes # (Manual) Eosinophils # (Manual) PT INR Fibrinogen dRVVT Confirm Interp Factor V Activity POC ABG pH POC ABG pCO2 POC ABG pO2 ABG pO2 ABG HCO3 ABG Base Excess ABG Hemoglobin Oxyhemoglobin Sodium Potassium Chloride Carbon Dioxide BUN Creatinine Glucose POC Glucose 110 H 125 H 136 H Lactic Acid Calcium Phosphorus Magnesium Direct Bilirubin AST ALT Alkaline Phosphatase Lactate Dehydrogenase Troponin T C-Reactive Protein Total Protein Albumin Prealbumin Triglycerides Cholesterol LDL Cholesterol Direct HDL Cholesterol Urine pH Urine WBC (Auto) Urine Creatinine Urine Total Protein Fluid Total Protein Vancomycin Trough Rheumatoid Factor Complement C4 Miscellaneous Test Crossmatch 11/20/16 11/20/16 11/20/16 05:00 05:00 05:51 WBC 13.1 H RBC 2.74 L Hgb 7.7 L Hct 23.6 L MCV MCH MCHC RDW 16.9 H Plt Count Lymph % (Auto) [place] % (Auto) 10.8 H Lymph # [place] # 1.4 H Baso # Seg Neutrophils % Seg Neuts % (Manual) Lymphocytes % (Manual) Monocytes % (Manual) Eosinophils % (Manual) Basophils % (Manual) Nucleated RBC % Seg Neutrophils # 7.9 H Seg Neutrophils # Man Lymphocytes # (Manual) Monocytes # (Manual) Eosinophils # (Manual) PT INR Fibrinogen dRVVT Confirm Interp Factor V Activity POC ABG pH POC ABG pCO2 POC ABG pO2 ABG pO2 ABG HCO3 ABG Base Excess ABG Hemoglobin Oxyhemoglobin Sodium Potassium Chloride Carbon Dioxide BUN 31 H Creatinine 1.8 H Glucose 129 H POC Glucose 133 H Lactic Acid Calcium Phosphorus Magnesium Direct Bilirubin AST ALT Alkaline Phosphatase Lactate Dehydrogenase Troponin T C-Reactive Protein Total Protein Albumin Prealbumin Triglycerides Cholesterol LDL Cholesterol Direct HDL Cholesterol Urine pH Urine WBC (Auto) Urine Creatinine Urine Total Protein Fluid Total Protein Vancomycin Trough Rheumatoid Factor Complement C4 Miscellaneous Test Crossmatch 11/20/16 11/20/16 11/21/16 12:40 18:10 01:20 WBC RBC Hgb Hct MCV MCH MCHC RDW Plt Count Lymph % (Auto) [place] % (Auto) Lymph # [place] # Baso # Seg Neutrophils % Seg Neuts % (Manual) Lymphocytes % (Manual) Monocytes % (Manual) Eosinophils % (Manual) Basophils % (Manual) Nucleated RBC % Seg Neutrophils # Seg Neutrophils # Man Lymphocytes # (Manual) Monocytes # (Manual) Eosinophils # (Manual) PT INR Fibrinogen dRVVT Confirm Interp Factor V Activity POC ABG pH POC ABG pCO2 POC ABG pO2 ABG pO2 ABG HCO3 ABG Base Excess ABG Hemoglobin Oxyhemoglobin Sodium Potassium Chloride Carbon Dioxide BUN Creatinine Glucose POC Glucose 134 H 138 H 136 H Lactic Acid Calcium Phosphorus Magnesium Direct Bilirubin AST ALT Alkaline Phosphatase Lactate Dehydrogenase Troponin T C-Reactive Protein Total Protein Albumin Prealbumin Triglycerides Cholesterol LDL Cholesterol Direct HDL Cholesterol Urine pH Urine WBC (Auto) Urine Creatinine Urine Total Protein Fluid Total Protein Vancomycin Trough Rheumatoid Factor Complement C4 Miscellaneous Test Crossmatch 11/21/16 11/21/16 11/21/16 07:04 07:45 07:45 WBC 22.0 H RBC 2.91 L Hgb 8.2 L Hct 25.4 L MCV MCH MCHC RDW 17.1 H Plt Count Lymph % (Auto) [place] % (Auto) Lymph # [place] # Baso # Seg Neutrophils % Seg Neuts % (Manual) Lymphocytes % (Manual) 8.0 L Monocytes % (Manual) Eosinophils % (Manual) Basophils % (Manual) Nucleated RBC % Seg Neutrophils # Seg Neutrophils # Man 14.7 H Lymphocytes # (Manual) Monocytes # (Manual) 1.1 H Eosinophils # (Manual) PT INR Fibrinogen dRVVT Confirm Interp Factor V Activity POC ABG pH POC ABG pCO2 POC ABG pO2 ABG pO2 ABG HCO3 ABG Base Excess ABG Hemoglobin Oxyhemoglobin Sodium Potassium Chloride Carbon Dioxide BUN 42 H Creatinine 2.0 H Glucose POC Glucose 108 H Lactic Acid Calcium Phosphorus Magnesium Direct Bilirubin AST ALT Alkaline Phosphatase Lactate Dehydrogenase Troponin T C-Reactive Protein Total Protein Albumin Prealbumin Triglycerides Cholesterol LDL Cholesterol Direct HDL Cholesterol Urine pH Urine WBC (Auto) Urine Creatinine Urine Total Protein Fluid Total Protein Vancomycin Trough Rheumatoid Factor Complement C4 Miscellaneous Test Crossmatch 11/21/16 11/21/16 11/21/16 08:38 10:09 11:20 WBC RBC Hgb Hct MCV MCH MCHC RDW Plt Count Lymph % (Auto) [place] % (Auto) Lymph # [place] # Baso # Seg Neutrophils % Seg Neuts % (Manual) Lymphocytes % (Manual) Monocytes % (Manual) Eosinophils % (Manual) Basophils % (Manual) Nucleated RBC % Seg Neutrophils # Seg Neutrophils # Man Lymphocytes # (Manual) Monocytes # (Manual) Eosinophils # (Manual) PT INR Fibrinogen dRVVT Confirm Interp Factor V Activity POC ABG pH 7.346 L POC ABG pCO2 34.4 L POC ABG pO2 314 H ABG pO2 ABG HCO3 ABG Base Excess ABG Hemoglobin Oxyhemoglobin Sodium Potassium Chloride Carbon Dioxide BUN Creatinine Glucose POC Glucose 195 H 153 H Lactic Acid Calcium Phosphorus Magnesium Direct Bilirubin AST ALT Alkaline Phosphatase Lactate Dehydrogenase Troponin T C-Reactive Protein Total Protein Albumin Prealbumin Triglycerides Cholesterol LDL Cholesterol Direct HDL Cholesterol Urine pH Urine WBC (Auto) Urine Creatinine Urine Total Protein Fluid Total Protein Vancomycin Trough Rheumatoid Factor Complement C4 Miscellaneous Test Crossmatch 11/21/16 11/22/16 11/22/16 23:37 04:48 05:00 WBC 29.7 H RBC 2.73 L Hgb 7.5 L Hct 24.2 L MCV MCH 27 L MCHC RDW 17.4 H Plt Count Lymph % (Auto) [place] % (Auto) Lymph # [place] # Baso # Seg Neutrophils % Seg Neuts % (Manual) Lymphocytes % (Manual) 7.0 L Monocytes % (Manual) Eosinophils % (Manual) Basophils % (Manual) Nucleated RBC % Seg Neutrophils # Seg Neutrophils # Man 15.4 H Lymphocytes # (Manual) Monocytes # (Manual) Eosinophils # (Manual) PT INR Fibrinogen dRVVT Confirm Interp Factor V Activity POC ABG pH POC ABG pCO2 24.6 L POC ABG pO2 189 H ABG pO2 ABG HCO3 ABG Base Excess ABG Hemoglobin Oxyhemoglobin Sodium Potassium Chloride Carbon Dioxide BUN Creatinine Glucose POC Glucose 65 L Lactic Acid Calcium Phosphorus Magnesium Direct Bilirubin AST ALT Alkaline Phosphatase Lactate Dehydrogenase Troponin T C-Reactive Protein Total Protein Albumin Prealbumin Triglycerides Cholesterol LDL Cholesterol Direct HDL Cholesterol Urine pH Urine WBC (Auto) Urine Creatinine Urine Total Protein Fluid Total Protein Vancomycin Trough Rheumatoid Factor Complement C4 Miscellaneous Test Crossmatch 11/22/16 11/23/16 11/23/16 05:00 03:44 04:06 WBC RBC 2.52 L Hgb 7.2 L Hct 21.5 L MCV MCH MCHC RDW 17.1 H Plt Count Lymph % (Auto) [place] % (Auto) 12.4 H Lymph # [place] # 1.4 H Baso # Seg Neutrophils % Seg Neuts % (Manual) Lymphocytes % (Manual) Monocytes % (Manual) Eosinophils % (Manual) Basophils % (Manual) Nucleated RBC % Seg Neutrophils # Seg Neutrophils # Man Lymphocytes # (Manual) Monocytes # (Manual) Eosinophils # (Manual) PT INR Fibrinogen dRVVT Confirm Interp Factor V Activity POC ABG pH 7.493 H POC ABG pCO2 29.5 L POC ABG pO2 49 L ABG pO2 ABG HCO3 ABG Base Excess ABG Hemoglobin Oxyhemoglobin Sodium 134 L Potassium Chloride 95.9 L Carbon Dioxide 14 L D BUN 51 H Creatinine 2.6 H Glucose POC Glucose Lactic Acid Calcium Phosphorus Magnesium Direct Bilirubin AST ALT Alkaline Phosphatase Lactate Dehydrogenase Troponin T C-Reactive Protein Total Protein Albumin Prealbumin Triglycerides Cholesterol LDL Cholesterol Direct HDL Cholesterol Urine pH Urine WBC (Auto) Urine Creatinine Urine Total Protein Fluid Total Protein Vancomycin Trough Rheumatoid Factor Complement C4 Miscellaneous Test Crossmatch 11/23/16 11/23/16 11/24/16 04:06 11:29 06:39 WBC RBC Hgb Hct MCV MCH MCHC RDW Plt Count Lymph % (Auto) [place] % (Auto) Lymph # [place] # Baso # Seg Neutrophils % Seg Neuts % (Manual) Lymphocytes % (Manual) Monocytes % (Manual) Eosinophils % (Manual) Basophils % (Manual) Nucleated RBC % Seg Neutrophils # Seg Neutrophils # Man Lymphocytes # (Manual) Monocytes # (Manual) Eosinophils # (Manual) PT INR Fibrinogen dRVVT Confirm Interp Factor V Activity POC ABG pH POC ABG pCO2 POC ABG pO2 ABG pO2 ABG HCO3 ABG Base Excess ABG Hemoglobin Oxyhemoglobin Sodium 136 L Potassium Chloride 95.2 L Carbon Dioxide BUN 60 H Creatinine 2.9 H Glucose POC Glucose 69 L 305 H Lactic Acid Calcium Phosphorus Magnesium 1.60 L Direct Bilirubin AST ALT Alkaline Phosphatase Lactate Dehydrogenase Troponin T C-Reactive Protein Total Protein Albumin Prealbumin Triglycerides Cholesterol LDL Cholesterol Direct HDL Cholesterol Urine pH Urine WBC (Auto) Urine Creatinine Urine Total Protein Fluid Total Protein Vancomycin Trough Rheumatoid Factor Complement C4 Miscellaneous Test Crossmatch 11/24/16 11/24/16 11/24/16 06:43 08:08 08:08 WBC 11.2 H RBC 2.47 L Hgb 6.8 L Hct 20.6 L MCV MCH MCHC RDW 17.0 H Plt Count Lymph % (Auto) [place] % (Auto) 10.3 H Lymph # [place] # 1.2 H Baso # Seg Neutrophils % Seg Neuts % (Manual) Lymphocytes % (Manual) Monocytes % (Manual) Eosinophils % (Manual) Basophils % (Manual) Nucleated RBC % Seg Neutrophils # Seg Neutrophils # Man Lymphocytes # (Manual) Monocytes # (Manual) Eosinophils # (Manual) PT INR Fibrinogen dRVVT Confirm Interp Factor V Activity POC ABG pH POC ABG pCO2 POC ABG pO2 ABG pO2 ABG HCO3 ABG Base Excess ABG Hemoglobin Oxyhemoglobin Sodium 135 L Potassium Chloride 96.3 L Carbon Dioxide BUN 61 H Creatinine 3.1 H Glucose POC Glucose 62 L Lactic Acid Calcium 8.2 L Phosphorus Magnesium Direct Bilirubin AST ALT Alkaline Phosphatase Lactate Dehydrogenase Troponin T C-Reactive Protein Total Protein Albumin Prealbumin Triglycerides Cholesterol LDL Cholesterol Direct HDL Cholesterol Urine pH Urine WBC (Auto) Urine Creatinine Urine Total Protein Fluid Total Protein Vancomycin Trough Rheumatoid Factor Complement C4 Miscellaneous Test Crossmatch 11/24/16 11/24/16 11/24/16 08:34 11:20 12:41 WBC RBC Hgb Hct MCV MCH MCHC RDW Plt Count Lymph % (Auto) [place] % (Auto) Lymph # [place] # Baso # Seg Neutrophils % Seg Neuts % (Manual) Lymphocytes % (Manual) Monocytes % (Manual) Eosinophils % (Manual) Basophils % (Manual) Nucleated RBC % Seg Neutrophils # Seg Neutrophils # Man Lymphocytes # (Manual) Monocytes # (Manual) Eosinophils # (Manual) PT INR Fibrinogen dRVVT Confirm Interp Factor V Activity POC ABG pH POC ABG pCO2 POC ABG pO2 ABG pO2 ABG HCO3 ABG Base Excess ABG Hemoglobin Oxyhemoglobin Sodium Potassium Chloride Carbon Dioxide BUN Creatinine Glucose POC Glucose 108 H Lactic Acid Calcium Phosphorus Magnesium 1.60 L Direct Bilirubin AST ALT Alkaline Phosphatase Lactate Dehydrogenase Troponin T C-Reactive Protein Total Protein Albumin Prealbumin Triglycerides Cholesterol LDL Cholesterol Direct HDL Cholesterol Urine pH Urine WBC (Auto) Urine Creatinine Urine Total Protein Fluid Total Protein Vancomycin Trough Rheumatoid Factor Complement C4 Miscellaneous Test Crossmatch See Detail 11/25/16 11/25/16 11/25/16 00:03 04:42 04:42 WBC RBC 3.03 L Hgb 8.6 L Hct 25.3 L MCV MCH MCHC RDW 16.2 H Plt Count Lymph % (Auto) [place] % (Auto) 8.1 H Lymph # [place] # Baso # Seg Neutrophils % 71.3 H Seg Neuts % (Manual) Lymphocytes % (Manual) Monocytes % (Manual) Eosinophils % (Manual) Basophils % (Manual) Nucleated RBC % Seg Neutrophils # Seg Neutrophils # Man Lymphocytes # (Manual) Monocytes # (Manual) Eosinophils # (Manual) PT INR Fibrinogen dRVVT Confirm Interp Factor V Activity POC ABG pH POC ABG pCO2 POC ABG pO2 ABG pO2 ABG HCO3 ABG Base Excess ABG Hemoglobin Oxyhemoglobin Sodium Potassium Chloride Carbon Dioxide BUN 61 H Creatinine 3.0 H Glucose 102 H POC Glucose 113 H Lactic Acid Calcium 8.2 L Phosphorus Magnesium Direct Bilirubin AST ALT Alkaline Phosphatase 142 H Lactate Dehydrogenase Troponin T C-Reactive Protein Total Protein 5.7 L Albumin 1.5 L Prealbumin Triglycerides Cholesterol LDL Cholesterol Direct HDL Cholesterol Urine pH Urine WBC (Auto) Urine Creatinine Urine Total Protein Fluid Total Protein Vancomycin Trough Rheumatoid Factor Complement C4 Miscellaneous Test Crossmatch 11/25/16 11/25/16 11/25/16 05:12 11:31 14:12 WBC RBC Hgb Hct MCV MCH MCHC RDW Plt Count Lymph % (Auto) [place] % (Auto) Lymph # [place] # Baso # Seg Neutrophils % Seg Neuts % (Manual) Lymphocytes % (Manual) Monocytes % (Manual) Eosinophils % (Manual) Basophils % (Manual) Nucleated RBC % Seg Neutrophils # Seg Neutrophils # Man Lymphocytes # (Manual) Monocytes # (Manual) Eosinophils # (Manual) PT INR Fibrinogen dRVVT Confirm Interp Factor V Activity POC ABG pH 7.487 H POC ABG pCO2 POC ABG pO2 153 H ABG pO2 ABG HCO3 ABG Base Excess ABG Hemoglobin Oxyhemoglobin Sodium Potassium Chloride Carbon Dioxide BUN Creatinine Glucose POC Glucose 131 H 140 H Lactic Acid Calcium Phosphorus Magnesium Direct Bilirubin AST ALT Alkaline Phosphatase Lactate Dehydrogenase Troponin T C-Reactive Protein Total Protein Albumin Prealbumin Triglycerides Cholesterol LDL Cholesterol Direct HDL Cholesterol Urine pH Urine WBC (Auto) Urine Creatinine Urine Total Protein Fluid Total Protein Vancomycin Trough Rheumatoid Factor Complement C4 Miscellaneous Test Crossmatch 11/25/16 11/26/16 11/26/16 17:23 00:09 05:13 WBC RBC 2.94 L Hgb 8.4 L Hct 24.6 L MCV MCH MCHC RDW 16.4 H Plt Count Lymph % (Auto) [place] % (Auto) 12.3 H Lymph # [place] # 1.1 H Baso # Seg Neutrophils % Seg Neuts % (Manual) Lymphocytes % (Manual) Monocytes % (Manual) Eosinophils % (Manual) Basophils % (Manual) Nucleated RBC % Seg Neutrophils # Seg Neutrophils # Man Lymphocytes # (Manual) Monocytes # (Manual) Eosinophils # (Manual) PT INR Fibrinogen dRVVT Confirm Interp Factor V Activity POC ABG pH POC ABG pCO2 POC ABG pO2 ABG pO2 ABG HCO3 ABG Base Excess ABG Hemoglobin Oxyhemoglobin Sodium Potassium Chloride Carbon Dioxide BUN Creatinine Glucose POC Glucose 146 H 112 H Lactic Acid Calcium Phosphorus Magnesium Direct Bilirubin AST ALT Alkaline Phosphatase Lactate Dehydrogenase Troponin T C-Reactive Protein Total Protein Albumin Prealbumin Triglycerides Cholesterol LDL Cholesterol Direct HDL Cholesterol Urine pH Urine WBC (Auto) Urine Creatinine Urine Total Protein Fluid Total Protein Vancomycin Trough Rheumatoid Factor Complement C4 Miscellaneous Test Crossmatch 11/26/16 11/26/16 11/26/16 05:13 05:28 11:53 WBC RBC Hgb Hct MCV MCH MCHC RDW Plt Count Lymph % (Auto) [place] % (Auto) Lymph # [place] # Baso # Seg Neutrophils % Seg Neuts % (Manual) Lymphocytes % (Manual) Monocytes % (Manual) Eosinophils % (Manual) Basophils % (Manual) Nucleated RBC % Seg Neutrophils # Seg Neutrophils # Man Lymphocytes # (Manual) Monocytes # (Manual) Eosinophils # (Manual) PT INR Fibrinogen dRVVT Confirm Interp Factor V Activity POC ABG pH POC ABG pCO2 POC ABG pO2 ABG pO2 ABG HCO3 ABG Base Excess ABG Hemoglobin Oxyhemoglobin Sodium Potassium Chloride 97.8 L Carbon Dioxide BUN 37 H Creatinine 2.0 H Glucose 109 H POC Glucose 117 H 111 H Lactic Acid Calcium 7.9 L Phosphorus 1.80 L D Magnesium Direct Bilirubin AST ALT Alkaline Phosphatase Lactate Dehydrogenase Troponin T C-Reactive Protein Total Protein Albumin Prealbumin Triglycerides Cholesterol LDL Cholesterol Direct HDL Cholesterol Urine pH Urine WBC (Auto) Urine Creatinine Urine Total Protein Fluid Total Protein Vancomycin Trough Rheumatoid Factor Complement C4 Miscellaneous Test Crossmatch 11/26/16 11/27/16 11/27/16 17:14 04:50 06:02 WBC RBC Hgb Hct MCV MCH MCHC RDW Plt Count Lymph % (Auto) [place] % (Auto) Lymph # [place] # Baso # Seg Neutrophils % Seg Neuts % (Manual) Lymphocytes % (Manual) Monocytes % (Manual) Eosinophils % (Manual) Basophils % (Manual) Nucleated RBC % Seg Neutrophils # Seg Neutrophils # Man Lymphocytes # (Manual) Monocytes # (Manual) Eosinophils # (Manual) PT INR Fibrinogen dRVVT Confirm Interp Factor V Activity POC ABG pH POC ABG pCO2 POC ABG pO2 ABG pO2 75.2 L ABG HCO3 26.4 H ABG Base Excess ABG Hemoglobin 7.6 L Oxyhemoglobin 94.8 L Sodium Potassium Chloride Carbon Dioxide BUN 49 H Creatinine 2.3 H Glucose POC Glucose 115 H Lactic Acid Calcium Phosphorus 1.50 L Magnesium Direct Bilirubin AST ALT Alkaline Phosphatase Lactate Dehydrogenase Troponin T C-Reactive Protein Total Protein Albumin Prealbumin Triglycerides Cholesterol LDL Cholesterol Direct HDL Cholesterol Urine pH Urine WBC (Auto) Urine Creatinine Urine Total Protein Fluid Total Protein Vancomycin Trough Rheumatoid Factor Complement C4 Miscellaneous Test Crossmatch 11/27/16 11/27/16 11/27/16 06:02 11:25 17:25 WBC 11.6 H RBC 2.75 L Hgb 7.6 L Hct 23.4 L MCV MCH MCHC RDW 16.5 H Plt Count Lymph % (Auto) [place] % (Auto) Lymph # [place] # Baso # Seg Neutrophils % Seg Neuts % (Manual) Lymphocytes % (Manual) Monocytes % (Manual) Eosinophils % (Manual) Basophils % (Manual) Nucleated RBC % Seg Neutrophils # Seg Neutrophils # Man Lymphocytes # (Manual) Monocytes # (Manual) Eosinophils # (Manual) PT INR Fibrinogen dRVVT Confirm Interp Factor V Activity POC ABG pH POC ABG pCO2 POC ABG pO2 ABG pO2 ABG HCO3 ABG Base Excess ABG Hemoglobin Oxyhemoglobin Sodium Potassium Chloride Carbon Dioxide BUN Creatinine Glucose POC Glucose 114 H 126 H Lactic Acid Calcium Phosphorus Magnesium Direct Bilirubin AST ALT Alkaline Phosphatase Lactate Dehydrogenase Troponin T C-Reactive Protein Total Protein Albumin Prealbumin Triglycerides Cholesterol LDL Cholesterol Direct HDL Cholesterol Urine pH Urine WBC (Auto) Urine Creatinine Urine Total Protein Fluid Total Protein Vancomycin Trough Rheumatoid Factor Complement C4 Miscellaneous Test Crossmatch 1011/28/16 11/28/16 04:45 05:33 05:44 WBC RBC Hgb Hct MCV MCH MCHC RDW Plt Count Lymph % (Auto) [place] % (Auto) Lymph # [place] # Baso # Seg Neutrophils % Seg Neuts % (Manual) Lymphocytes % (Manual) Monocytes % (Manual) Eosinophils % (Manual) Basophils % (Manual) Nucleated RBC % Seg Neutrophils # Seg Neutrophils # Man Lymphocytes # (Manual) Monocytes # (Manual) Eosinophils # (Manual) PT INR Fibrinogen dRVVT Confirm Interp Factor V Activity POC ABG pH POC ABG pCO2 POC ABG pO2 ABG pO2 99.3 H ABG HCO3 ABG Base Excess ABG Hemoglobin 8.3 L Oxyhemoglobin Sodium Potassium Chloride Carbon Dioxide BUN 63 H Creatinine 2.4 H Glucose 102 H POC Glucose 108 H Lactic Acid Calcium Phosphorus 1.80 L Magnesium Direct Bilirubin AST ALT Alkaline Phosphatase Lactate Dehydrogenase Troponin T C-Reactive Protein Total Protein Albumin Prealbumin Triglycerides Cholesterol LDL Cholesterol Direct HDL Cholesterol Urine pH Urine WBC (Auto) Urine Creatinine Urine Total Protein Fluid Total Protein Vancomycin Trough Rheumatoid Factor Complement C4 Miscellaneous Test Crossmatch 11/28/16 11/28/16 11/28/16 12:31 16:09 23:46 WBC RBC Hgb Hct MCV MCH MCHC RDW Plt Count Lymph % (Auto) [place] % (Auto) Lymph # [place] # Baso # Seg Neutrophils % Seg Neuts % (Manual) Lymphocytes % (Manual) Monocytes % (Manual) Eosinophils % (Manual) Basophils % (Manual) Nucleated RBC % Seg Neutrophils # Seg Neutrophils # Man Lymphocytes # (Manual) Monocytes # (Manual) Eosinophils # (Manual) PT INR Fibrinogen dRVVT Confirm Interp Factor V Activity POC ABG pH POC ABG pCO2 POC ABG pO2 ABG pO2 ABG HCO3 ABG Base Excess ABG Hemoglobin Oxyhemoglobin Sodium Potassium Chloride Carbon Dioxide BUN Creatinine Glucose POC Glucose 126 H 111 H 119 H Lactic Acid Calcium Phosphorus Magnesium Direct Bilirubin AST ALT Alkaline Phosphatase Lactate Dehydrogenase Troponin T C-Reactive Protein Total Protein Albumin Prealbumin Triglycerides Cholesterol LDL Cholesterol Direct HDL Cholesterol Urine pH Urine WBC (Auto) Urine Creatinine Urine Total Protein Fluid Total Protein Vancomycin Trough Rheumatoid Factor Complement C4 Miscellaneous Test Crossmatch 11/29/16 11/29/16 11/29/16 03:33 04:52 05:10 WBC RBC Hgb Hct MCV MCH MCHC RDW Plt Count Lymph % (Auto) [place] % (Auto) Lymph # [place] # Baso # Seg Neutrophils % Seg Neuts % (Manual) Lymphocytes % (Manual) Monocytes % (Manual) Eosinophils % (Manual) Basophils % (Manual) Nucleated RBC % Seg Neutrophils # Seg Neutrophils # Man Lymphocytes # (Manual) Monocytes # (Manual) Eosinophils # (Manual) PT INR Fibrinogen dRVVT Confirm Interp Factor V Activity POC ABG pH POC ABG pCO2 POC ABG pO2 ABG pO2 ABG HCO3 ABG Base Excess ABG Hemoglobin 7.0 L Oxyhemoglobin 94.9 L Sodium Potassium Chloride Carbon Dioxide BUN 73 H Creatinine 2.7 H Glucose POC Glucose 108 H Lactic Acid Calcium Phosphorus Magnesium Direct Bilirubin AST ALT Alkaline Phosphatase Lactate Dehydrogenase Troponin T C-Reactive Protein Total Protein Albumin Prealbumin Triglycerides Cholesterol LDL Cholesterol Direct HDL Cholesterol Urine pH Urine WBC (Auto) Urine Creatinine Urine Total Protein Fluid Total Protein Vancomycin Trough Rheumatoid Factor Complement C4 Miscellaneous Test Crossmatch 11/29/16 11/29/16 11/29/16 12:16 18:05 23:46 WBC RBC Hgb Hct MCV MCH MCHC RDW Plt Count Lymph % (Auto) [place] % (Auto) Lymph # [place] # Baso # Seg Neutrophils % Seg Neuts % (Manual) Lymphocytes % (Manual) Monocytes % (Manual) Eosinophils % (Manual) Basophils % (Manual) Nucleated RBC % Seg Neutrophils # Seg Neutrophils # Man Lymphocytes # (Manual) Monocytes # (Manual) Eosinophils # (Manual) PT INR Fibrinogen dRVVT Confirm Interp Factor V Activity POC ABG pH POC ABG pCO2 POC ABG pO2 ABG pO2 ABG HCO3 ABG Base Excess ABG Hemoglobin Oxyhemoglobin Sodium Potassium Chloride Carbon Dioxide BUN Creatinine Glucose POC Glucose 133 H 146 H 141 H Lactic Acid Calcium Phosphorus Magnesium Direct Bilirubin AST ALT Alkaline Phosphatase Lactate Dehydrogenase Troponin T C-Reactive Protein Total Protein Albumin Prealbumin Triglycerides Cholesterol LDL Cholesterol Direct HDL Cholesterol Urine pH Urine WBC (Auto) Urine Creatinine Urine Total Protein Fluid Total Protein Vancomycin Trough Rheumatoid Factor Complement C4 Miscellaneous Test Crossmatch 11/30/16 11/30/16 11/30/16 04:17 04:17 04:32 WBC 12.0 H RBC 2.80 L Hgb 7.8 L Hct 23.6 L MCV MCH MCHC RDW 16.6 H Plt Count Lymph % (Auto) [place] % (Auto) 11.3 H Lymph # [place] # 1.4 H Baso # Seg Neutrophils % Seg Neuts % (Manual) Lymphocytes % (Manual) Monocytes % (Manual) Eosinophils % (Manual) Basophils % (Manual) Nucleated RBC % Seg Neutrophils # 8.2 H Seg Neutrophils # Man Lymphocytes # (Manual) Monocytes # (Manual) Eosinophils # (Manual) PT INR Fibrinogen dRVVT Confirm Interp Factor V Activity POC ABG pH POC ABG pCO2 POC ABG pO2 ABG pO2 ABG HCO3 ABG Base Excess ABG Hemoglobin Oxyhemoglobin Sodium 169 H* D Potassium 5.1 H Chloride 121.5 H Carbon Dioxide BUN 34 H Creatinine 1.3 H D Glucose 133 H POC Glucose 131 H Lactic Acid Calcium 10.3 H Phosphorus Magnesium Direct Bilirubin AST ALT Alkaline Phosphatase Lactate Dehydrogenase Troponin T C-Reactive Protein Total Protein Albumin Prealbumin Triglycerides Cholesterol LDL Cholesterol Direct HDL Cholesterol Urine pH Urine WBC (Auto) Urine Creatinine Urine Total Protein Fluid Total Protein Vancomycin Trough Rheumatoid Factor Complement C4 Miscellaneous Test Crossmatch 11/30/16 11/30/16 11/30/16 05:45 11:10 17:26 WBC RBC Hgb Hct MCV MCH MCHC RDW Plt Count Lymph % (Auto) [place] % (Auto) Lymph # [place] # Baso # Seg Neutrophils % Seg Neuts % (Manual) Lymphocytes % (Manual) Monocytes % (Manual) Eosinophils % (Manual) Basophils % (Manual) Nucleated RBC % Seg Neutrophils # Seg Neutrophils # Man Lymphocytes # (Manual) Monocytes # (Manual) Eosinophils # (Manual) PT INR Fibrinogen dRVVT Confirm Interp Factor V Activity POC ABG pH POC ABG pCO2 POC ABG pO2 ABG pO2 ABG HCO3 ABG Base Excess ABG Hemoglobin Oxyhemoglobin Sodium Potassium Chloride Carbon Dioxide BUN 45 H Creatinine 1.6 H Glucose 131 H POC Glucose 146 H 134 H Lactic Acid Calcium Phosphorus Magnesium Direct Bilirubin AST ALT Alkaline Phosphatase Lactate Dehydrogenase Troponin T C-Reactive Protein Total Protein Albumin Prealbumin Triglycerides Cholesterol LDL Cholesterol Direct HDL Cholesterol Urine pH Urine WBC (Auto) Urine Creatinine Urine Total Protein Fluid Total Protein Vancomycin Trough Rheumatoid Factor Complement C4 Miscellaneous Test Crossmatch 11/30/16 12/01/16 12/01/16 23:35 00:06 03:35 WBC RBC Hgb Hct MCV MCH MCHC RDW Plt Count Lymph % (Auto) [place] % (Auto) Lymph # [place] # Baso # Seg Neutrophils % Seg Neuts % (Manual) Lymphocytes % (Manual) Monocytes % (Manual) Eosinophils % (Manual) Basophils % (Manual) Nucleated RBC % Seg Neutrophils # Seg Neutrophils # Man Lymphocytes # (Manual) Monocytes # (Manual) Eosinophils # (Manual) PT INR Fibrinogen dRVVT Confirm Interp Factor V Activity POC ABG pH POC ABG pCO2 POC ABG pO2 ABG pO2 ABG HCO3 ABG Base Excess ABG Hemoglobin 6.9 L Oxyhemoglobin Sodium Potassium Chloride Carbon Dioxide BUN 58 H Creatinine 1.8 H Glucose 146 H POC Glucose 151 H Lactic Acid Calcium Phosphorus Magnesium Direct Bilirubin AST ALT Alkaline Phosphatase Lactate Dehydrogenase Troponin T C-Reactive Protein Total Protein Albumin Prealbumin Triglycerides Cholesterol LDL Cholesterol Direct HDL Cholesterol Urine pH Urine WBC (Auto) Urine Creatinine Urine Total Protein Fluid Total Protein Vancomycin Trough Rheumatoid Factor Complement C4 Miscellaneous Test Crossmatch 12/01/16 12/01/16 12/01/16 03:35 05:47 11:52 WBC 12.3 H RBC 2.82 L Hgb 7.8 L Hct 23.7 L MCV MCH MCHC RDW 16.7 H Plt Count Lymph % (Auto) [place] % (Auto) 9.8 H Lymph # [place] # 1.2 H Baso # Seg Neutrophils % Seg Neuts % (Manual) Lymphocytes % (Manual) Monocytes % (Manual) Eosinophils % (Manual) Basophils % (Manual) Nucleated RBC % Seg Neutrophils # 8.4 H Seg Neutrophils # Man Lymphocytes # (Manual) Monocytes # (Manual) Eosinophils # (Manual) PT INR Fibrinogen dRVVT Confirm Interp Factor V Activity POC ABG pH POC ABG pCO2 POC ABG pO2 ABG pO2 ABG HCO3 ABG Base Excess ABG Hemoglobin Oxyhemoglobin Sodium Potassium Chloride Carbon Dioxide BUN Creatinine Glucose POC Glucose 152 H 152 H Lactic Acid Calcium Phosphorus Magnesium Direct Bilirubin AST ALT Alkaline Phosphatase Lactate Dehydrogenase Troponin T C-Reactive Protein Total Protein Albumin Prealbumin Triglycerides Cholesterol LDL Cholesterol Direct HDL Cholesterol Urine pH Urine WBC (Auto) Urine Creatinine Urine Total Protein Fluid Total Protein Vancomycin Trough Rheumatoid Factor Complement C4 Miscellaneous Test Crossmatch 12/01/16 12/01/16 12/02/16 17:40 23:41 05:00 WBC RBC Hgb Hct MCV MCH MCHC RDW Plt Count Lymph % (Auto) [place] % (Auto) Lymph # [place] # Baso # Seg Neutrophils % Seg Neuts % (Manual) Lymphocytes % (Manual) Monocytes % (Manual) Eosinophils % (Manual) Basophils % (Manual) Nucleated RBC % Seg Neutrophils # Seg Neutrophils # Man Lymphocytes # (Manual) Monocytes # (Manual) Eosinophils # (Manual) PT INR Fibrinogen dRVVT Confirm Interp Factor V Activity POC ABG pH POC ABG pCO2 POC ABG pO2 ABG pO2 ABG HCO3 ABG Base Excess ABG Hemoglobin Oxyhemoglobin Sodium Potassium Chloride Carbon Dioxide BUN 45 H Creatinine Glucose 115 H POC Glucose 140 H 144 H Lactic Acid Calcium Phosphorus Magnesium Direct Bilirubin AST ALT Alkaline Phosphatase Lactate Dehydrogenase Troponin T C-Reactive Protein Total Protein Albumin Prealbumin Triglycerides Cholesterol LDL Cholesterol Direct HDL Cholesterol Urine pH Urine WBC (Auto) Urine Creatinine Urine Total Protein Fluid Total Protein Vancomycin Trough Rheumatoid Factor Complement C4 Miscellaneous Test Crossmatch 12/02/16 12/02/16 12/02/16 05:31 11:20 17:38 WBC RBC Hgb Hct MCV MCH MCHC RDW Plt Count Lymph % (Auto) [place] % (Auto) Lymph # [place] # Baso # Seg Neutrophils % Seg Neuts % (Manual) Lymphocytes % (Manual) Monocytes % (Manual) Eosinophils % (Manual) Basophils % (Manual) Nucleated RBC % Seg Neutrophils # Seg Neutrophils # Man Lymphocytes # (Manual) Monocytes # (Manual) Eosinophils # (Manual) PT INR Fibrinogen dRVVT Confirm Interp Factor V Activity POC ABG pH POC ABG pCO2 POC ABG pO2 ABG pO2 ABG HCO3 ABG Base Excess ABG Hemoglobin Oxyhemoglobin Sodium Potassium Chloride Carbon Dioxide BUN Creatinine Glucose POC Glucose 136 H 177 H 139 H Lactic Acid Calcium Phosphorus Magnesium Direct Bilirubin AST ALT Alkaline Phosphatase Lactate Dehydrogenase Troponin T C-Reactive Protein Total Protein Albumin Prealbumin Triglycerides Cholesterol LDL Cholesterol Direct HDL Cholesterol Urine pH Urine WBC (Auto) Urine Creatinine Urine Total Protein Fluid Total Protein Vancomycin Trough Rheumatoid Factor Complement C4 Miscellaneous Test Crossmatch 12/02/16 12/03/16 12/03/16 23:43 04:00 04:00 WBC 20.4 H RBC 2.74 L Hgb 7.4 L Hct 23.6 L MCV MCH 27 L MCHC RDW 17.1 H Plt Count Lymph % (Auto) [place] % (Auto) Lymph # [place] # Baso # Seg Neutrophils % Seg Neuts % (Manual) 31.0 L Lymphocytes % (Manual) Monocytes % (Manual) Eosinophils % (Manual) Basophils % (Manual) Nucleated RBC % Seg Neutrophils # Seg Neutrophils # Man Lymphocytes # (Manual) Monocytes # (Manual) Eosinophils # (Manual) PT INR Fibrinogen dRVVT Confirm Interp Factor V Activity POC ABG pH POC ABG pCO2 POC ABG pO2 ABG pO2 ABG HCO3 ABG Base Excess ABG Hemoglobin Oxyhemoglobin Sodium Potassium Chloride Carbon Dioxide BUN 61 H Creatinine 1.6 H Glucose 119 H POC Glucose 158 H Lactic Acid Calcium Phosphorus Magnesium Direct Bilirubin AST ALT Alkaline Phosphatase Lactate Dehydrogenase Troponin T C-Reactive Protein Total Protein Albumin Prealbumin Triglycerides Cholesterol LDL Cholesterol Direct HDL Cholesterol Urine pH Urine WBC (Auto) Urine Creatinine Urine Total Protein Fluid Total Protein Vancomycin Trough Rheumatoid Factor Complement C4 Miscellaneous Test Crossmatch 12/03/16 12/03/16 12/03/16 05:02 12:11 18:16 WBC RBC Hgb Hct MCV MCH MCHC RDW Plt Count Lymph % (Auto) [place] % (Auto) Lymph # [place] # Baso # Seg Neutrophils % Seg Neuts % (Manual) Lymphocytes % (Manual) Monocytes % (Manual) Eosinophils % (Manual) Basophils % (Manual) Nucleated RBC % Seg Neutrophils # Seg Neutrophils # Man Lymphocytes # (Manual) Monocytes # (Manual) Eosinophils # (Manual) PT INR Fibrinogen dRVVT Confirm Interp Factor V Activity POC ABG pH POC ABG pCO2 POC ABG pO2 ABG pO2 ABG HCO3 ABG Base Excess ABG Hemoglobin Oxyhemoglobin Sodium Potassium Chloride Carbon Dioxide BUN Creatinine Glucose POC Glucose 146 H 157 H 124 H Lactic Acid Calcium Phosphorus Magnesium Direct Bilirubin AST ALT Alkaline Phosphatase Lactate Dehydrogenase Troponin T C-Reactive Protein Total Protein Albumin Prealbumin Triglycerides Cholesterol LDL Cholesterol Direct HDL Cholesterol Urine pH Urine WBC (Auto) Urine Creatinine Urine Total Protein Fluid Total Protein Vancomycin Trough Rheumatoid Factor Complement C4 Miscellaneous Test Crossmatch 12/03/16 12/04/16 12/04/16 23:41 04:00 04:45 WBC RBC Hgb Hct MCV MCH MCHC RDW Plt Count Lymph % (Auto) [place] % (Auto) Lymph # [place] # Baso # Seg Neutrophils % Seg Neuts % (Manual) Lymphocytes % (Manual) Monocytes % (Manual) Eosinophils % (Manual) Basophils % (Manual) Nucleated RBC % Seg Neutrophils # Seg Neutrophils # Man Lymphocytes # (Manual) Monocytes # (Manual) Eosinophils # (Manual) PT INR Fibrinogen dRVVT Confirm Interp Factor V Activity POC ABG pH POC ABG pCO2 POC ABG pO2 ABG pO2 ABG HCO3 ABG Base Excess ABG Hemoglobin Oxyhemoglobin Sodium Potassium Chloride Carbon Dioxide BUN 76 H Creatinine 1.6 H Glucose POC Glucose 130 H 136 H Lactic Acid Calcium Phosphorus Magnesium Direct Bilirubin AST ALT Alkaline Phosphatase 155 H Lactate Dehydrogenase Troponin T C-Reactive Protein Total Protein 5.5 L Albumin 1.5 L Prealbumin Triglycerides Cholesterol LDL Cholesterol Direct HDL Cholesterol Urine pH Urine WBC (Auto) Urine Creatinine Urine Total Protein Fluid Total Protein Vancomycin Trough Rheumatoid Factor Complement C4 Miscellaneous Test Crossmatch 12/04/16 12/04/16 12/05/16 12:08 17:23 00:10 WBC RBC Hgb Hct MCV MCH MCHC RDW Plt Count Lymph % (Auto) [place] % (Auto) Lymph # [place] # Baso # Seg Neutrophils % Seg Neuts % (Manual) Lymphocytes % (Manual) Monocytes % (Manual) Eosinophils % (Manual) Basophils % (Manual) Nucleated RBC % Seg Neutrophils # Seg Neutrophils # Man Lymphocytes # (Manual) Monocytes # (Manual) Eosinophils # (Manual) PT INR Fibrinogen dRVVT Confirm Interp Factor V Activity POC ABG pH POC ABG pCO2 POC ABG pO2 ABG pO2 ABG HCO3 ABG Base Excess ABG Hemoglobin Oxyhemoglobin Sodium Potassium Chloride Carbon Dioxide BUN Creatinine Glucose POC Glucose 114 H 129 H 124 H Lactic Acid Calcium Phosphorus Magnesium Direct Bilirubin AST ALT Alkaline Phosphatase Lactate Dehydrogenase Troponin T C-Reactive Protein Total Protein Albumin Prealbumin Triglycerides Cholesterol LDL Cholesterol Direct HDL Cholesterol Urine pH Urine WBC (Auto) Urine Creatinine Urine Total Protein Fluid Total Protein Vancomycin Trough Rheumatoid Factor Complement C4 Miscellaneous Test Crossmatch 12/05/16 12/05/16 12/05/16 05:00 05:00 05:18 WBC RBC Hgb Hct MCV MCH MCHC RDW Plt Count Lymph % (Auto) [place] % (Auto) Lymph # [place] # Baso # Seg Neutrophils % Seg Neuts % (Manual) Lymphocytes % (Manual) Monocytes % (Manual) Eosinophils % (Manual) Basophils % (Manual) Nucleated RBC % Seg Neutrophils # Seg Neutrophils # Man Lymphocytes # (Manual) Monocytes # (Manual) Eosinophils # (Manual) PT INR Fibrinogen dRVVT Confirm Interp Factor V Activity POC ABG pH POC ABG pCO2 POC ABG pO2 ABG pO2 ABG HCO3 ABG Base Excess ABG Hemoglobin Oxyhemoglobin Sodium Potassium Chloride Carbon Dioxide 21 L BUN 85 H Creatinine 1.9 H Glucose 131 H POC Glucose 154 H Lactic Acid Calcium Phosphorus Magnesium Direct Bilirubin AST ALT Alkaline Phosphatase Lactate Dehydrogenase Troponin T C-Reactive Protein 19.30 H Total Protein Albumin Prealbumin Triglycerides Cholesterol LDL Cholesterol Direct HDL Cholesterol Urine pH Urine WBC (Auto) Urine Creatinine Urine Total Protein Fluid Total Protein Vancomycin Trough Rheumatoid Factor Complement C4 Miscellaneous Test Crossmatch 12/05/16 12/05/16 12/05/16 11:43 17:46 23:25 WBC RBC Hgb Hct MCV MCH MCHC RDW Plt Count Lymph % (Auto) [place] % (Auto) Lymph # [place] # Baso # Seg Neutrophils % Seg Neuts % (Manual) Lymphocytes % (Manual) Monocytes % (Manual) Eosinophils % (Manual) Basophils % (Manual) Nucleated RBC % Seg Neutrophils # Seg Neutrophils # Man Lymphocytes # (Manual) Monocytes # (Manual) Eosinophils # (Manual) PT INR Fibrinogen dRVVT Confirm Interp Factor V Activity POC ABG pH POC ABG pCO2 POC ABG pO2 ABG pO2 ABG HCO3 ABG Base Excess ABG Hemoglobin Oxyhemoglobin Sodium Potassium Chloride Carbon Dioxide BUN Creatinine Glucose POC Glucose 117 H 113 H 111 H Lactic Acid Calcium Phosphorus Magnesium Direct Bilirubin AST ALT Alkaline Phosphatase Lactate Dehydrogenase Troponin T C-Reactive Protein Total Protein Albumin Prealbumin Triglycerides Cholesterol LDL Cholesterol Direct HDL Cholesterol Urine pH Urine WBC (Auto) Urine Creatinine Urine Total Protein Fluid Total Protein Vancomycin Trough Rheumatoid Factor Complement C4 Miscellaneous Test Crossmatch 12/05/16 12/06/16 12/06/16 Unknown 04:58 06:00 WBC RBC Hgb Hct MCV MCH MCHC RDW Plt Count Lymph % (Auto) [place] % (Auto) Lymph # [place] # Baso # Seg Neutrophils % Seg Neuts % (Manual) Lymphocytes % (Manual) Monocytes % (Manual) Eosinophils % (Manual) Basophils % (Manual) Nucleated RBC % Seg Neutrophils # Seg Neutrophils # Man Lymphocytes # (Manual) Monocytes # (Manual) Eosinophils # (Manual) PT INR Fibrinogen dRVVT Confirm Interp Factor V Activity POC ABG pH POC ABG pCO2 POC ABG pO2 ABG pO2 75.2 L ABG HCO3 ABG Base Excess -3.4 L ABG Hemoglobin 7.4 L Oxyhemoglobin 94.5 L Sodium Potassium Chloride Carbon Dioxide 20 L BUN 99 H Creatinine 2.1 H Glucose 126 H POC Glucose 145 H Lactic Acid Calcium Phosphorus 4.80 H Magnesium Direct Bilirubin AST ALT Alkaline Phosphatase Lactate Dehydrogenase Troponin T C-Reactive Protein Total Protein Albumin Prealbumin Triglycerides Cholesterol LDL Cholesterol Direct HDL Cholesterol Urine pH Urine WBC (Auto) Urine Creatinine Urine Total Protein Fluid Total Protein Vancomycin Trough Rheumatoid Factor Complement C4 Miscellaneous Test Crossmatch 12/06/16 12/06/16 12/06/16 06:46 11:54 17:55 WBC RBC Hgb 8.3 L Hct 26.4 L MCV MCH MCHC RDW Plt Count Lymph % (Auto) [place] % (Auto) Lymph # [place] # Baso # Seg Neutrophils % Seg Neuts % (Manual) Lymphocytes % (Manual) Monocytes % (Manual) Eosinophils % (Manual) Basophils % (Manual) Nucleated RBC % Seg Neutrophils # Seg Neutrophils # Man Lymphocytes # (Manual) Monocytes # (Manual) Eosinophils # (Manual) PT INR Fibrinogen dRVVT Confirm Interp Factor V Activity POC ABG pH POC ABG pCO2 POC ABG pO2 ABG pO2 ABG HCO3 ABG Base Excess ABG Hemoglobin Oxyhemoglobin Sodium Potassium Chloride Carbon Dioxide BUN Creatinine Glucose POC Glucose 126 H 157 H Lactic Acid Calcium Phosphorus Magnesium Direct Bilirubin AST ALT Alkaline Phosphatase Lactate Dehydrogenase Troponin T C-Reactive Protein Total Protein Albumin Prealbumin Triglycerides Cholesterol LDL Cholesterol Direct HDL Cholesterol Urine pH Urine WBC (Auto) Urine Creatinine Urine Total Protein Fluid Total Protein Vancomycin Trough Rheumatoid Factor Complement C4 Miscellaneous Test Crossmatch 12/06/16 12/07/16 12/07/16 23:59 05:34 06:30 WBC RBC Hgb Hct MCV MCH MCHC RDW Plt Count Lymph % (Auto) [place] % (Auto) Lymph # [place] # Baso # Seg Neutrophils % Seg Neuts % (Manual) Lymphocytes % (Manual) Monocytes % (Manual) Eosinophils % (Manual) Basophils % (Manual) Nucleated RBC % Seg Neutrophils # Seg Neutrophils # Man Lymphocytes # (Manual) Monocytes # (Manual) Eosinophils # (Manual) PT INR Fibrinogen dRVVT Confirm Interp Factor V Activity POC ABG pH POC ABG pCO2 POC ABG pO2 ABG pO2 ABG HCO3 ABG Base Excess ABG Hemoglobin Oxyhemoglobin Sodium Potassium Chloride Carbon Dioxide BUN 67 H Creatinine 1.4 H Glucose 126 H POC Glucose 129 H 129 H Lactic Acid Calcium Phosphorus Magnesium Direct Bilirubin AST ALT Alkaline Phosphatase Lactate Dehydrogenase Troponin T C-Reactive Protein Total Protein Albumin Prealbumin Triglycerides Cholesterol LDL Cholesterol Direct HDL Cholesterol Urine pH Urine WBC (Auto) Urine Creatinine Urine Total Protein Fluid Total Protein Vancomycin Trough Rheumatoid Factor Complement C4 Miscellaneous Test Crossmatch 12/07/16 12/07/16 12/07/16 06:30 08:00 09:45 WBC 18.8 H RBC 2.52 L Hgb 6.9 L 6.8 L Hct 21.2 L 21.1 L MCV MCH 27 L MCHC RDW 18.0 H Plt Count Lymph % (Auto) [place] % (Auto) 9.9 H Lymph # [place] # 1.9 H Baso # Seg Neutrophils % 71.8 H Seg Neuts % (Manual) Lymphocytes % (Manual) Monocytes % (Manual) Eosinophils % (Manual) Basophils % (Manual) Nucleated RBC % Seg Neutrophils # 13.5 H Seg Neutrophils # Man Lymphocytes # (Manual) Monocytes # (Manual) Eosinophils # (Manual) PT INR Fibrinogen dRVVT Confirm Interp Factor V Activity POC ABG pH POC ABG pCO2 POC ABG pO2 ABG pO2 ABG HCO3 ABG Base Excess ABG Hemoglobin Oxyhemoglobin Sodium Potassium Chloride Carbon Dioxide BUN Creatinine Glucose POC Glucose Lactic Acid Calcium Phosphorus Magnesium Direct Bilirubin AST ALT Alkaline Phosphatase Lactate Dehydrogenase Troponin T C-Reactive Protein Total Protein Albumin Prealbumin Triglycerides Cholesterol LDL Cholesterol Direct HDL Cholesterol Urine pH Urine WBC (Auto) Urine Creatinine Urine Total Protein Fluid Total Protein Vancomycin Trough Rheumatoid Factor Complement C4 Miscellaneous Test Crossmatch See Detail 12/07/16 12/07/16 12/07/16 11:44 18:19 23:59 WBC RBC Hgb Hct MCV MCH MCHC RDW Plt Count Lymph % (Auto) [place] % (Auto) Lymph # [place] # Baso # Seg Neutrophils % Seg Neuts % (Manual) Lymphocytes % (Manual) Monocytes % (Manual) Eosinophils % (Manual) Basophils % (Manual) Nucleated RBC % Seg Neutrophils # Seg Neutrophils # Man Lymphocytes # (Manual) Monocytes # (Manual) Eosinophils # (Manual) PT INR Fibrinogen dRVVT Confirm Interp Factor V Activity POC ABG pH POC ABG pCO2 POC ABG pO2 ABG pO2 ABG HCO3 ABG Base Excess ABG Hemoglobin Oxyhemoglobin Sodium Potassium Chloride Carbon Dioxide BUN Creatinine Glucose POC Glucose 137 H 138 H 133 H Lactic Acid Calcium Phosphorus Magnesium Direct Bilirubin AST ALT Alkaline Phosphatase Lactate Dehydrogenase Troponin T C-Reactive Protein Total Protein Albumin Prealbumin Triglycerides Cholesterol LDL Cholesterol Direct HDL Cholesterol Urine pH Urine WBC (Auto) Urine Creatinine Urine Total Protein Fluid Total Protein Vancomycin Trough Rheumatoid Factor Complement C4 Miscellaneous Test Crossmatch 12/08/16 12/08/16 12/08/16 05:25 05:30 05:30 WBC 23.8 H RBC 2.88 L Hgb 8.1 L Hct 24.3 L MCV MCH MCHC RDW 16.7 H Plt Count Lymph % (Auto) [place] % (Auto) Lymph # [place] # Baso # Seg Neutrophils % Seg Neuts % (Manual) 76.0 H Lymphocytes % (Manual) 9.0 L Monocytes % (Manual) 9.0 H Eosinophils % (Manual) Basophils % (Manual) Nucleated RBC % Seg Neutrophils # Seg Neutrophils # Man 18.1 H Lymphocytes # (Manual) Monocytes # (Manual) 2.1 H Eosinophils # (Manual) PT INR Fibrinogen dRVVT Confirm Interp Factor V Activity POC ABG pH POC ABG pCO2 POC ABG pO2 ABG pO2 ABG HCO3 ABG Base Excess ABG Hemoglobin Oxyhemoglobin Sodium Potassium Chloride Carbon Dioxide 21 L BUN 76 H Creatinine 1.6 H Glucose 133 H POC Glucose 177 H Lactic Acid Calcium Phosphorus Magnesium Direct Bilirubin AST ALT Alkaline Phosphatase Lactate Dehydrogenase Troponin T C-Reactive Protein Total Protein Albumin Prealbumin Triglycerides Cholesterol LDL Cholesterol Direct HDL Cholesterol Urine pH Urine WBC (Auto) Urine Creatinine Urine Total Protein Fluid Total Protein Vancomycin Trough Rheumatoid Factor Complement C4 Miscellaneous Test Crossmatch 12/08/16 12/08/16 11:45 18:00 WBC RBC Hgb Hct MCV MCH MCHC RDW Plt Count Lymph % (Auto) [place] % (Auto) Lymph # [place] # Baso # Seg Neutrophils % Seg Neuts % (Manual) Lymphocytes % (Manual) Monocytes % (Manual) Eosinophils % (Manual) Basophils % (Manual) Nucleated RBC % Seg Neutrophils # Seg Neutrophils # Man Lymphocytes # (Manual) Monocytes # (Manual) Eosinophils # (Manual) PT INR Fibrinogen dRVVT Confirm Interp Factor V Activity POC ABG pH POC ABG pCO2 POC ABG pO2 ABG pO2 ABG HCO3 ABG Base Excess ABG Hemoglobin Oxyhemoglobin Sodium Potassium Chloride Carbon Dioxide BUN Creatinine Glucose POC Glucose 163 H 123 H Lactic Acid Calcium Phosphorus Magnesium Direct Bilirubin AST ALT Alkaline Phosphatase Lactate Dehydrogenase Troponin T C-Reactive Protein Total Protein Albumin Prealbumin Triglycerides Cholesterol LDL Cholesterol Direct HDL Cholesterol Urine pH Urine WBC (Auto) Urine Creatinine Urine Total Protein Fluid Total Protein Vancomycin Trough Rheumatoid Factor Complement C4 Miscellaneous Test Crossmatch Allied health notes reviewed: RT
[2016-12-08] MEDS ORDERED: TPN ADULT IV SCH (20:00)
[2016-12-08] MEDS: ARTIFICIAL TEARS OPHTH OINT OU PRN (21:44)
[2016-12-09] MEDS: HumuLIN R SUB-Q SCH ×4 (00:56→18:14)
[2016-12-09] MEDS: LOPRESSOR PO SCH ×5 (00:57→23:11)
[2016-12-09] MEDS: DUONEB *Not for PRN Use IH SCH ×4 (01:15→19:47)
[2016-12-09] MEDS: LASIX IV SCH ×2 (05:26→18:14)
[2016-12-09] MEDS: APRESOLINE PO SCH ×3 (06:08→23:09)
[2016-12-09 06:40] LABS: Basophils % (Auto) 0.3 % (0.0-1.8); Eosinophils # (Auto) 0.1 K/mm3 (0.0-0.4); Eosinophils % (Auto) 0.8 % (0.0-4.3); Hematocrit 24.2 % (30.3-42.9); Lymphocytes # (Auto) 2.6 K/mm3 (1.2-5.4); Lymphocytes % (Auto) 16.5 % (13.4-35.0); Mean Corpuscular HGB Conc 33 % (30-34); Mean Corpuscular Hemoglobin 28 pg (28-32); Mean Corpuscular Volume 85 fl (79-97); Monocytes # (Auto) 1.8 K/mm3 (0.0-0.8); Monocytes % (Auto) 11.6 % (0.0-7.3); Platelet Count 303 K/mm3 (140-440); Red Blood Count 2.87 M/mm3 (3.65-5.03); Red Cell Distribution Width 17.2 % (13.2-15.2)
--- NOTE | 2016-12-09 09:51 | Progress Note ---
Assessment and Plan Acute Hypoxemic Respiratory Failure (now with exacerbation and back on MVS) Hypertension (unable to receive p.o. meds) s/p tracheostomy Acute encephalopathy s/p CVA Oropharyngeal dysphagia Enterococcal bacteremia sepsis syndrome Anemia Obesity JUANITA now on hemodialysis Enteric Fistula - leucocytosis improved and without high grade fevers; continue to follow clinically and off AB's for now - prn CRP & lactate levels if clinically indicated - keep on with daily PSV trials and / or T-piece as tolerated (repeat trial each shift if failed earlier shift) - continue TPN administration (continue TPN; NPO except for meds) - continue scopolamine for secretion control - continue to wean FiO2 for sats > 94% - continue bronchodilators and pulmonary toilet - VAP bundle addressed - continue prn IV metorolol - continue metoprolol and amlodipine (rate control better) - continue HD/UF per nephrology (Teu/Thurs/Sat) - continue to follow electrolytes and correct as necessary - continue GI & VTE prophylaxis - Continue flu & pneumovax per protocol ... case discussed during rounds and care plan formulated .....she remains critically ill on life sustaining interventions including MVS and at risk for further deterioration including ....35' CCT today without overlap Subjective Date of service: 12/09/16 Principal diagnosis: Acute resp failure on MVS; S/P Acute CVA; Acute Encephalopathy; JUANITA Interval history: Patient is seen today for: Acute resp failure on MVS; S/P Acute CVA; Acute Encephalopathy; JUANITA Seen and examined at bedside; 24hour events reviewed; nursing and respiratory care staff consulted; no adverse overnight events reported to me; on PSV 14/5 and tolerating well so far; rate of 27/min when examined; AMS is persistent; no high grade fevers; no word from family to decelerate care; no seizures; possible air leak around cuff but intermittent per RT. Objective Vital Signs - 12hr 12/08/16 12/08/16 12/08/16 22:00 22:30 23:00 Temperature Pulse Rate 101 H 98 H 101 H Pulse Rate [ Anterior Bilateral Throughout] Pulse Rate [ Bilateral Throughout] Pulse Rate [ From Monitor] Respiratory 20 19 16 Rate Respiratory Rate [Anterior Bilateral Throughout] Respiratory Rate [Bilateral Throughout] Blood Pressure 122/83 119/70 127/75 O2 Sat by Pulse 99 100 100 Oximetry O2 Sat by Pulse Oximetry [ Assessment] 12/08/16 12/08/16 12/09/16 23:30 23:34 00:00 Temperature 98.4 F Pulse Rate 100 H 100 H Pulse Rate [ Anterior Bilateral Throughout] Pulse Rate [ Bilateral Throughout] Pulse Rate [ From Monitor] Respiratory 18 28 H Rate Respiratory Rate [Anterior Bilateral Throughout] Respiratory Rate [Bilateral Throughout] Blood Pressure 122/67 116/68 O2 Sat by Pulse 100 100 Oximetry O2 Sat by Pulse 100 Oximetry [ Assessment] 12/09/16 12/09/16 12/09/16 00:29 00:30 00:57 Temperature Pulse Rate 102 H 103 H Pulse Rate [ Anterior Bilateral Throughout] Pulse Rate [ Bilateral Throughout] Pulse Rate [ 88 From Monitor] Respiratory 17 22 Rate Respiratory Rate [Anterior Bilateral Throughout] Respiratory Rate [Bilateral Throughout] Blood Pressure 118/73 121/76 O2 Sat by Pulse 100 100 Oximetry O2 Sat by Pulse Oximetry [ Assessment] 12/09/16 12/09/16 12/09/16 01:00 01:24 01:30 Temperature Pulse Rate 102 H 95 H Pulse Rate [ Anterior Bilateral Throughout] Pulse Rate [ 97 H Bilateral Throughout] Pulse Rate [ From Monitor] Respiratory 19 23 Rate Respiratory Rate [Anterior Bilateral Throughout] Respiratory 12 Rate [Bilateral Throughout] Blood Pressure 125/69 129/74 O2 Sat by Pulse 100 100 Oximetry O2 Sat by Pulse Oximetry [ Assessment] 12/09/16 12/09/16 12/09/16 02:00 02:30 03:00 Temperature Pulse Rate 98 H 96 H Pulse Rate [ Anterior Bilateral Throughout] Pulse Rate [ Bilateral Throughout] Pulse Rate [ From Monitor] Respiratory 15 29 H Rate Respiratory Rate [Anterior Bilateral Throughout] Respiratory Rate [Bilateral Throughout] Blood Pressure 138/99 167/100 155/98 O2 Sat by Pulse 100 Oximetry O2 Sat by Pulse Oximetry [ Assessment] 12/09/16 12/09/16 12/09/16 03:30 03:38 04:00 Temperature 97.9 F Pulse Rate 96 H 97 H Pulse Rate [ Anterior Bilateral Throughout] Pulse Rate [ Bilateral Throughout] Pulse Rate [ From Monitor] Respiratory 22 17 Rate Respiratory Rate [Anterior Bilateral Throughout] Respiratory Rate [Bilateral Throughout] Blood Pressure 143/98 152/96 O2 Sat by Pulse 100 100 Oximetry O2 Sat by Pulse Oximetry [ Assessment] 12/09/16 12/09/16 12/09/16 04:30 04:50 05:00 Temperature Pulse Rate 99 H 99 H Pulse Rate [ Anterior Bilateral Throughout] Pulse Rate [ Bilateral Throughout] Pulse Rate [ 103 H From Monitor] Respiratory 25 H 22 21 Rate Respiratory Rate [Anterior Bilateral Throughout] Respiratory Rate [Bilateral Throughout] Blood Pressure 151/98 146/94 O2 Sat by Pulse 100 100 100 Oximetry O2 Sat by Pulse Oximetry [ Assessment] 12/09/16 12/09/16 12/09/16 05:26 05:30 06:00 Temperature Pulse Rate 101 H 103 H 99 H Pulse Rate [ Anterior Bilateral Throughout] Pulse Rate [ Bilateral Throughout] Pulse Rate [ From Monitor] Respiratory 23 16 Rate Respiratory Rate [Anterior Bilateral Throughout] Respiratory Rate [Bilateral Throughout] Blood Pressure 144/96 161/98 154/92 O2 Sat by Pulse 100 100 Oximetry O2 Sat by Pulse Oximetry [ Assessment] 12/09/16 12/09/16 12/09/16 06:08 06:30 07:00 Temperature Pulse Rate 94 H 91 H 91 H Pulse Rate [ Anterior Bilateral Throughout] Pulse Rate [ Bilateral Throughout] Pulse Rate [ From Monitor] Respiratory 12 16 Rate Respiratory Rate [Anterior Bilateral Throughout] Respiratory Rate [Bilateral Throughout] Blood Pressure 154/92 136/86 128/81 O2 Sat by Pulse 100 100 Oximetry O2 Sat by Pulse Oximetry [ Assessment] 12/09/16 12/09/16 12/09/16 07:30 08:00 08:40 Temperature Pulse Rate 92 H 97 H Pulse Rate [ 93 H Anterior Bilateral Throughout] Pulse Rate [ Bilateral Throughout] Pulse Rate [ 92 H From Monitor] Respiratory 11 L 29 H Rate Respiratory 29 H Rate [Anterior Bilateral Throughout] Respiratory Rate [Bilateral Throughout] Blood Pressure 133/86 131/80 O2 Sat by Pulse 100 100 100 Oximetry O2 Sat by Pulse Oximetry [ Assessment] 12/09/16 12/09/16 09:02 09:06 Temperature Pulse Rate 98 H Pulse Rate [ 98 H Anterior Bilateral Throughout] Pulse Rate [ Bilateral Throughout] Pulse Rate [ From Monitor] Respiratory 20 Rate Respiratory 23 Rate [Anterior Bilateral Throughout] Respiratory Rate [Bilateral Throughout] Blood Pressure 137/86 O2 Sat by Pulse 100 Oximetry O2 Sat by Pulse 100 Oximetry [ Assessment] Constitutional: appears uncomfortable, other (not tracking) Eyes: non-icteric, other (tracheostomy tube in midline of neck) ENT: oropharynx moist, oropharyngeal exudate pre Neck: supple, no lymphadenopathy, no JVD, other (no thyromegaly) Effort: mildly labored Ascultation: Bilateral: rales, rhonchi (and referred upper airway sounds) Percussion: Left: dull (base) Cardiovascular: regular rate and rhythm, other (no rubs / murmurs) Gastrointestinal: hypoactive bowel sounds, soft, non-tender, non-distended, other (RLQ & LUQ stomas with colostomy bags) Integumentary: other (no rash; no cellulitis; poor turgor) Extremities: no cyanosis, pulses normal, no ischemia or petechiae, edema (1+ bilaterally) Neurologic: pupils equal and round, unable to assess, other (encephalopathic) Psychiatric: other (unable to assess) CBC and BMP: 12/09/16 06:00 12/09/16 06:00 ABG, PT/INR, D-dimer: ABG POC ABG pH 7.487 (7.35-7.45) H 11/25/16 14:12 ABG pH 7.450 pH Units (7.350-7.450) 12/05/16 Unknown POC ABG pCO2 39.0 (35-45) 11/25/16 14:12 ABG pCO2 29.6 mm Hg 12/05/16 Unknown POC ABG pO2 153 (80-105) H 11/25/16 14:12 ABG pO2 75.2 mm Hg (80.0-90.0) L 12/05/16 Unknown POC ABG HCO3 29.5 11/25/16 14:12 POC ABG Total CO2 31 11/25/16 14:12 POC ABG O2 Sat 99 11/25/16 14:12 ABG O2 Saturation 96.8 % (95.0-99.0) 12/05/16 Unknown PT/INR, D-dimer PT 16.8 Sec. (12.2-14.9) H 11/17/16 03:20 INR 1.37 (0.87-1.13) H 11/17/16 03:20 Abnormal lab findings: Abnormal Labs 09/03/16 09/03/16 09/03/16 12:12 15:07 16:20 WBC RBC Hgb Hct MCV MCH MCHC RDW Plt Count Lymph % (Auto) [place] % (Auto) Lymph # [place] # Baso # Seg Neutrophils % Seg Neuts % (Manual) Lymphocytes % (Manual) Monocytes % (Manual) Eosinophils % (Manual) Basophils % (Manual) Nucleated RBC % Seg Neutrophils # Seg Neutrophils # Man Lymphocytes # (Manual) Monocytes # (Manual) Eosinophils # (Manual) PT INR Fibrinogen dRVVT Confirm Interp Factor V Activity POC ABG pH 7.452 H POC ABG pCO2 POC ABG pO2 ABG pO2 ABG HCO3 ABG Base Excess ABG Hemoglobin Oxyhemoglobin Sodium Potassium Chloride Carbon Dioxide BUN Creatinine Glucose POC Glucose 178 H Lactic Acid Calcium Phosphorus 2.20 L Magnesium 1.60 L Direct Bilirubin AST ALT Alkaline Phosphatase Lactate Dehydrogenase Troponin T C-Reactive Protein Total Protein Albumin Prealbumin Triglycerides Cholesterol LDL Cholesterol Direct HDL Cholesterol Urine pH Urine WBC (Auto) Urine Creatinine Urine Total Protein Fluid Total Protein Vancomycin Trough Rheumatoid Factor Complement C4 Miscellaneous Test Crossmatch 09/03/16 09/03/16 09/03/16 17:57 17:58 23:50 WBC RBC Hgb Hct MCV MCH MCHC RDW Plt Count Lymph % (Auto) [place] % (Auto) Lymph # [place] # Baso # Seg Neutrophils % Seg Neuts % (Manual) Lymphocytes % (Manual) Monocytes % (Manual) Eosinophils % (Manual) Basophils % (Manual) Nucleated RBC % Seg Neutrophils # Seg Neutrophils # Man Lymphocytes # (Manual) Monocytes # (Manual) Eosinophils # (Manual) PT INR Fibrinogen dRVVT Confirm Interp Factor V Activity POC ABG pH POC ABG pCO2 POC ABG pO2 ABG pO2 ABG HCO3 ABG Base Excess ABG Hemoglobin Oxyhemoglobin Sodium Potassium Chloride Carbon Dioxide BUN Creatinine Glucose POC Glucose 162 H 145 H Lactic Acid Calcium Phosphorus 2.30 L Magnesium Direct Bilirubin AST ALT Alkaline Phosphatase Lactate Dehydrogenase Troponin T C-Reactive Protein Total Protein Albumin Prealbumin Triglycerides Cholesterol LDL Cholesterol Direct HDL Cholesterol Urine pH Urine WBC (Auto) Urine Creatinine Urine Total Protein Fluid Total Protein Vancomycin Trough Rheumatoid Factor Complement C4 Miscellaneous Test Crossmatch 09/04/16 09/04/16 09/04/16 03:31 03:31 05:42 WBC RBC Hgb 9.7 L D Hct MCV 72 L MCH 23 L MCHC RDW 17.5 H Plt Count Lymph % (Auto) 11.1 L [place] % (Auto) Lymph # [place] # Baso # Seg Neutrophils % 84.3 H Seg Neuts % (Manual) Lymphocytes % (Manual) Monocytes % (Manual) Eosinophils % (Manual) Basophils % (Manual) Nucleated RBC % Seg Neutrophils # 8.9 H Seg Neutrophils # Man Lymphocytes # (Manual) Monocytes # (Manual) Eosinophils # (Manual) PT INR Fibrinogen dRVVT Confirm Interp Factor V Activity POC ABG pH POC ABG pCO2 POC ABG pO2 ABG pO2 ABG HCO3 ABG Base Excess ABG Hemoglobin Oxyhemoglobin Sodium 135 L Potassium 2.9 L* Chloride 97.2 L Carbon Dioxide 19 L BUN Creatinine 1.7 H Glucose 170 H POC Glucose 152 H Lactic Acid Calcium Phosphorus Magnesium Direct Bilirubin AST ALT Alkaline Phosphatase Lactate Dehydrogenase Troponin T C-Reactive Protein Total Protein Albumin Prealbumin Triglycerides 160 H Cholesterol LDL Cholesterol Direct HDL Cholesterol 31 L Urine pH Urine WBC (Auto) Urine Creatinine Urine Total Protein Fluid Total Protein Vancomycin Trough Rheumatoid Factor Complement C4 Miscellaneous Test Crossmatch 09/04/16 09/04/16 09/04/16 11:34 17:46 23:29 WBC RBC Hgb Hct MCV MCH MCHC RDW Plt Count Lymph % (Auto) [place] % (Auto) Lymph # [place] # Baso # Seg Neutrophils % Seg Neuts % (Manual) Lymphocytes % (Manual) Monocytes % (Manual) Eosinophils % (Manual) Basophils % (Manual) Nucleated RBC % Seg Neutrophils # Seg Neutrophils # Man Lymphocytes # (Manual) Monocytes # (Manual) Eosinophils # (Manual) PT INR Fibrinogen dRVVT Confirm Interp Factor V Activity POC ABG pH POC ABG pCO2 POC ABG pO2 ABG pO2 ABG HCO3 ABG Base Excess ABG Hemoglobin Oxyhemoglobin Sodium Potassium Chloride Carbon Dioxide BUN Creatinine Glucose POC Glucose 165 H 210 H 139 H Lactic Acid Calcium Phosphorus Magnesium Direct Bilirubin AST ALT Alkaline Phosphatase Lactate Dehydrogenase Troponin T C-Reactive Protein Total Protein Albumin Prealbumin Triglycerides Cholesterol LDL Cholesterol Direct HDL Cholesterol Urine pH Urine WBC (Auto) Urine Creatinine Urine Total Protein Fluid Total Protein Vancomycin Trough Rheumatoid Factor Complement C4 Miscellaneous Test Crossmatch 09/05/16 09/05/16 09/05/16 04:05 04:05 05:38 WBC RBC Hgb Hct MCV 76 L D MCH 23 L MCHC RDW 17.8 H Plt Count Lymph % (Auto) [place] % (Auto) Lymph # [place] # Baso # Seg Neutrophils % Seg Neuts % (Manual) Lymphocytes % (Manual) Monocytes % (Manual) Eosinophils % (Manual) Basophils % (Manual) Nucleated RBC % Seg Neutrophils # Seg Neutrophils # Man Lymphocytes # (Manual) Monocytes # (Manual) Eosinophils # (Manual) PT INR Fibrinogen dRVVT Confirm Interp Factor V Activity POC ABG pH POC ABG pCO2 POC ABG pO2 ABG pO2 ABG HCO3 ABG Base Excess ABG Hemoglobin Oxyhemoglobin Sodium 134 L Potassium Chloride Carbon Dioxide 18 L BUN Creatinine 1.8 H Glucose 192 H POC Glucose 175 H Lactic Acid Calcium Phosphorus Magnesium Direct Bilirubin AST ALT Alkaline Phosphatase Lactate Dehydrogenase Troponin T C-Reactive Protein Total Protein Albumin Prealbumin Triglycerides Cholesterol LDL Cholesterol Direct HDL Cholesterol Urine pH Urine WBC (Auto) Urine Creatinine Urine Total Protein Fluid Total Protein Vancomycin Trough Rheumatoid Factor Complement C4 Miscellaneous Test Crossmatch 09/05/16 09/05/16 09/05/16 11:38 17:48 23:22 WBC RBC Hgb Hct MCV MCH MCHC RDW Plt Count Lymph % (Auto) [place] % (Auto) Lymph # [place] # Baso # Seg Neutrophils % Seg Neuts % (Manual) Lymphocytes % (Manual) Monocytes % (Manual) Eosinophils % (Manual) Basophils % (Manual) Nucleated RBC % Seg Neutrophils # Seg Neutrophils # Man Lymphocytes # (Manual) Monocytes # (Manual) Eosinophils # (Manual) PT INR Fibrinogen dRVVT Confirm Interp Factor V Activity POC ABG pH POC ABG pCO2 POC ABG pO2 ABG pO2 ABG HCO3 ABG Base Excess ABG Hemoglobin Oxyhemoglobin Sodium Potassium Chloride Carbon Dioxide BUN Creatinine Glucose POC Glucose 164 H 186 H 195 H Lactic Acid Calcium Phosphorus Magnesium Direct Bilirubin AST ALT Alkaline Phosphatase Lactate Dehydrogenase Troponin T C-Reactive Protein Total Protein Albumin Prealbumin Triglycerides Cholesterol LDL Cholesterol Direct HDL Cholesterol Urine pH Urine WBC (Auto) Urine Creatinine Urine Total Protein Fluid Total Protein Vancomycin Trough Rheumatoid Factor Complement C4 Miscellaneous Test Crossmatch 09/06/16 09/06/16 09/06/16 04:12 05:59 07:32 WBC RBC Hgb Hct MCV MCH MCHC RDW Plt Count Lymph % (Auto) [place] % (Auto) Lymph # [place] # Baso # Seg Neutrophils % Seg Neuts % (Manual) Lymphocytes % (Manual) Monocytes % (Manual) Eosinophils % (Manual) Basophils % (Manual) Nucleated RBC % Seg Neutrophils # Seg Neutrophils # Man Lymphocytes # (Manual) Monocytes # (Manual) Eosinophils # (Manual) PT INR Fibrinogen dRVVT Confirm Interp Factor V Activity POC ABG pH 7.514 H POC ABG pCO2 29.1 L POC ABG pO2 72 L ABG pO2 ABG HCO3 ABG Base Excess ABG Hemoglobin Oxyhemoglobin Sodium 133 L Potassium 3.4 L Chloride 94.9 L Carbon Dioxide 19 L BUN 30 H Creatinine 2.1 H Glucose 139 H POC Glucose 146 H Lactic Acid Calcium Phosphorus Magnesium Direct Bilirubin AST ALT Alkaline Phosphatase Lactate Dehydrogenase Troponin T C-Reactive Protein Total Protein Albumin Prealbumin Triglycerides Cholesterol LDL Cholesterol Direct HDL Cholesterol Urine pH Urine WBC (Auto) Urine Creatinine Urine Total Protein Fluid Total Protein Vancomycin Trough Rheumatoid Factor Complement C4 Miscellaneous Test Crossmatch 09/06/16 09/06/16 09/06/16 11:57 17:58 19:02 WBC RBC Hgb Hct MCV MCH MCHC RDW Plt Count Lymph % (Auto) [place] % (Auto) Lymph # [place] # Baso # Seg Neutrophils % Seg Neuts % (Manual) Lymphocytes % (Manual) Monocytes % (Manual) Eosinophils % (Manual) Basophils % (Manual) Nucleated RBC % Seg Neutrophils # Seg Neutrophils # Man Lymphocytes # (Manual) Monocytes # (Manual) Eosinophils # (Manual) PT INR Fibrinogen dRVVT Confirm Interp Factor V Activity POC ABG pH 7.465 H POC ABG pCO2 32.0 L POC ABG pO2 ABG pO2 ABG HCO3 ABG Base Excess ABG Hemoglobin Oxyhemoglobin Sodium Potassium Chloride Carbon Dioxide BUN Creatinine Glucose POC Glucose 165 H 160 H Lactic Acid Calcium Phosphorus Magnesium Direct Bilirubin AST ALT Alkaline Phosphatase Lactate Dehydrogenase Troponin T C-Reactive Protein Total Protein Albumin Prealbumin Triglycerides Cholesterol LDL Cholesterol Direct HDL Cholesterol Urine pH Urine WBC (Auto) Urine Creatinine Urine Total Protein Fluid Total Protein Vancomycin Trough Rheumatoid Factor Complement C4 Miscellaneous Test Crossmatch 09/06/16 09/07/16 09/07/16 23:45 02:47 02:47 WBC RBC Hgb Hct MCV MCH MCHC RDW Plt Count Lymph % (Auto) [place] % (Auto) Lymph # [place] # Baso # Seg Neutrophils % Seg Neuts % (Manual) Lymphocytes % (Manual) Monocytes % (Manual) Eosinophils % (Manual) Basophils % (Manual) Nucleated RBC % Seg Neutrophils # Seg Neutrophils # Man Lymphocytes # (Manual) Monocytes # (Manual) Eosinophils # (Manual) PT INR Fibrinogen dRVVT Confirm Interp Factor V Activity POC ABG pH POC ABG pCO2 POC ABG pO2 ABG pO2 ABG HCO3 ABG Base Excess ABG Hemoglobin Oxyhemoglobin Sodium Potassium Chloride Carbon Dioxide BUN Creatinine Glucose POC Glucose 204 H Lactic Acid Calcium Phosphorus Magnesium Direct Bilirubin AST ALT Alkaline Phosphatase Lactate Dehydrogenase Troponin T C-Reactive Protein Total Protein Albumin Prealbumin Triglycerides Cholesterol LDL Cholesterol Direct HDL Cholesterol Urine pH Urine WBC (Auto) 68.0 H Urine Creatinine 106.1 H Urine Total Protein Fluid Total Protein Vancomycin Trough Rheumatoid Factor Complement C4 Miscellaneous Test Crossmatch 09/07/16 09/07/16 09/07/16 04:50 06:19 06:39 WBC RBC Hgb Hct MCV MCH MCHC RDW Plt Count Lymph % (Auto) [place] % (Auto) Lymph # [place] # Baso # Seg Neutrophils % Seg Neuts % (Manual) Lymphocytes % (Manual) Monocytes % (Manual) Eosinophils % (Manual) Basophils % (Manual) Nucleated RBC % Seg Neutrophils # Seg Neutrophils # Man Lymphocytes # (Manual) Monocytes # (Manual) Eosinophils # (Manual) PT INR Fibrinogen dRVVT Confirm Interp Factor V Activity POC ABG pH 7.457 H POC ABG pCO2 32.1 L POC ABG pO2 76 L ABG pO2 ABG HCO3 ABG Base Excess ABG Hemoglobin Oxyhemoglobin Sodium 132 L Potassium Chloride 94.7 L Carbon Dioxide BUN 53 H Creatinine 2.9 H Glucose 151 H POC Glucose 149 H Lactic Acid Calcium Phosphorus Magnesium Direct Bilirubin AST ALT Alkaline Phosphatase Lactate Dehydrogenase Troponin T C-Reactive Protein Total Protein Albumin Prealbumin Triglycerides Cholesterol LDL Cholesterol Direct HDL Cholesterol Urine pH Urine WBC (Auto) Urine Creatinine Urine Total Protein Fluid Total Protein Vancomycin Trough Rheumatoid Factor Complement C4 Miscellaneous Test Crossmatch 09/07/16 09/07/16 09/07/16 09:20 11:43 11:43 WBC 19.4 H RBC Hgb 8.3 L Hct 26.4 L D MCV 72 L D MCH 22 L MCHC RDW 17.9 H Plt Count Lymph % (Auto) 8.5 L [place] % (Auto) Lymph # [place] # 1.0 H Baso # Seg Neutrophils % 85.8 H Seg Neuts % (Manual) Lymphocytes % (Manual) Monocytes % (Manual) Eosinophils % (Manual) Basophils % (Manual) Nucleated RBC % Seg Neutrophils # 16.6 H Seg Neutrophils # Man Lymphocytes # (Manual) Monocytes # (Manual) Eosinophils # (Manual) PT INR Fibrinogen dRVVT Confirm Interp Factor V Activity POC ABG pH POC ABG pCO2 POC ABG pO2 ABG pO2 ABG HCO3 ABG Base Excess ABG Hemoglobin Oxyhemoglobin Sodium 134 L Potassium Chloride 97.2 L Carbon Dioxide 20 L BUN 58 H Creatinine 2.9 H Glucose 147 H POC Glucose Lactic Acid Calcium Phosphorus 2.40 L Magnesium 2.40 H Direct Bilirubin AST ALT Alkaline Phosphatase Lactate Dehydrogenase Troponin T C-Reactive Protein Total Protein 5.8 L Albumin 2.2 L Prealbumin Triglycerides Cholesterol LDL Cholesterol Direct HDL Cholesterol Urine pH Urine WBC (Auto) Urine Creatinine Urine Total Protein Fluid Total Protein Vancomycin Trough Rheumatoid Factor Complement C4 58 H Miscellaneous Test Crossmatch 09/07/16 09/07/16 09/07/16 11:50 16:00 17:31 WBC RBC Hgb Hct MCV MCH MCHC RDW Plt Count Lymph % (Auto) [place] % (Auto) Lymph # [place] # Baso # Seg Neutrophils % Seg Neuts % (Manual) Lymphocytes % (Manual) Monocytes % (Manual) Eosinophils % (Manual) Basophils % (Manual) Nucleated RBC % Seg Neutrophils # Seg Neutrophils # Man Lymphocytes # (Manual) Monocytes # (Manual) Eosinophils # (Manual) PT INR Fibrinogen dRVVT Confirm Interp Factor V Activity POC ABG pH POC ABG pCO2 POC ABG pO2 158 H ABG pO2 ABG HCO3 ABG Base Excess ABG Hemoglobin Oxyhemoglobin Sodium Potassium Chloride Carbon Dioxide BUN Creatinine Glucose POC Glucose 175 H Lactic Acid Calcium Phosphorus Magnesium Direct Bilirubin AST ALT Alkaline Phosphatase Lactate Dehydrogenase Troponin T C-Reactive Protein Total Protein Albumin Prealbumin Triglycerides Cholesterol LDL Cholesterol Direct HDL Cholesterol Urine pH Urine WBC (Auto) Urine Creatinine 66.3 H Urine Total Protein Fluid Total Protein Vancomycin Trough Rheumatoid Factor Complement C4 Miscellaneous Test Crossmatch 09/07/16 09/08/16 09/08/16 23:50 05:46 06:18 WBC 17.8 H RBC 3.58 L Hgb 8.1 L Hct 25.5 L MCV 71 L MCH 23 L MCHC RDW 18.4 H Plt Count Lymph % (Auto) [place] % (Auto) Lymph # [place] # Baso # Seg Neutrophils % Seg Neuts % (Manual) 92.0 H Lymphocytes % (Manual) 6.0 L Monocytes % (Manual) Eosinophils % (Manual) Basophils % (Manual) Nucleated RBC % Seg Neutrophils # Seg Neutrophils # Man 16.4 H Lymphocytes # (Manual) 1.1 L Monocytes # (Manual) Eosinophils # (Manual) PT INR Fibrinogen dRVVT Confirm Interp Factor V Activity POC ABG pH POC ABG pCO2 34.3 L POC ABG pO2 71 L ABG pO2 ABG HCO3 ABG Base Excess ABG Hemoglobin Oxyhemoglobin Sodium Potassium Chloride Carbon Dioxide BUN Creatinine Glucose POC Glucose 216 H Lactic Acid Calcium Phosphorus Magnesium Direct Bilirubin AST ALT Alkaline Phosphatase Lactate Dehydrogenase Troponin T C-Reactive Protein Total Protein Albumin Prealbumin Triglycerides Cholesterol LDL Cholesterol Direct HDL Cholesterol Urine pH Urine WBC (Auto) Urine Creatinine Urine Total Protein Fluid Total Protein Vancomycin Trough Rheumatoid Factor Complement C4 Miscellaneous Test Crossmatch 09/08/16 09/08/16 09/08/16 06:18 06:51 10:55 WBC RBC Hgb Hct MCV MCH MCHC RDW Plt Count Lymph % (Auto) [place] % (Auto) Lymph # [place] # Baso # Seg Neutrophils % Seg Neuts % (Manual) Lymphocytes % (Manual) Monocytes % (Manual) Eosinophils % (Manual) Basophils % (Manual) Nucleated RBC % Seg Neutrophils # Seg Neutrophils # Man Lymphocytes # (Manual) Monocytes # (Manual) Eosinophils # (Manual) PT INR Fibrinogen dRVVT Confirm Interp Factor V Activity POC ABG pH POC ABG pCO2 POC ABG pO2 ABG pO2 ABG HCO3 ABG Base Excess ABG Hemoglobin Oxyhemoglobin Sodium 133 L Potassium Chloride 96.9 L Carbon Dioxide 20 L BUN 63 H Creatinine 2.7 H Glucose 195 H POC Glucose 204 H 169 H Lactic Acid Calcium Phosphorus Magnesium Direct Bilirubin AST ALT Alkaline Phosphatase Lactate Dehydrogenase Troponin T C-Reactive Protein Total Protein Albumin Prealbumin Triglycerides Cholesterol LDL Cholesterol Direct HDL Cholesterol Urine pH Urine WBC (Auto) Urine Creatinine Urine Total Protein Fluid Total Protein Vancomycin Trough Rheumatoid Factor Complement C4 Miscellaneous Test Crossmatch 09/08/16 09/08/16 09/08/16 11:48 11:48 11:48 WBC RBC Hgb Hct MCV MCH MCHC RDW Plt Count Lymph % (Auto) [place] % (Auto) Lymph # [place] # Baso # Seg Neutrophils % Seg Neuts % (Manual) Lymphocytes % (Manual) Monocytes % (Manual) Eosinophils % (Manual) Basophils % (Manual) Nucleated RBC % Seg Neutrophils # Seg Neutrophils # Man Lymphocytes # (Manual) Monocytes # (Manual) Eosinophils # (Manual) PT INR Fibrinogen 750 H dRVVT Confirm Interp Factor V Activity POC ABG pH POC ABG pCO2 POC ABG pO2 ABG pO2 ABG HCO3 ABG Base Excess ABG Hemoglobin Oxyhemoglobin Sodium Potassium Chloride Carbon Dioxide BUN Creatinine Glucose POC Glucose Lactic Acid Calcium Phosphorus Magnesium Direct Bilirubin AST ALT Alkaline Phosphatase Lactate Dehydrogenase Troponin T C-Reactive Protein 15.70 H Total Protein Albumin Prealbumin Triglycerides Cholesterol LDL Cholesterol Direct HDL Cholesterol Urine pH Urine WBC (Auto) Urine Creatinine Urine Total Protein Fluid Total Protein Vancomycin Trough Rheumatoid Factor 24 H Complement C4 Miscellaneous Test Crossmatch 09/08/16 09/08/16 09/09/16 15:35 18:25 00:24 WBC RBC Hgb Hct MCV MCH MCHC RDW Plt Count Lymph % (Auto) [place] % (Auto) Lymph # [place] # Baso # Seg Neutrophils % Seg Neuts % (Manual) Lymphocytes % (Manual) Monocytes % (Manual) Eosinophils % (Manual) Basophils % (Manual) Nucleated RBC % Seg Neutrophils # Seg Neutrophils # Man Lymphocytes # (Manual) Monocytes # (Manual) Eosinophils # (Manual) PT INR Fibrinogen dRVVT Confirm Interp Factor V Activity 182 H POC ABG pH POC ABG pCO2 POC ABG pO2 ABG pO2 ABG HCO3 ABG Base Excess ABG Hemoglobin Oxyhemoglobin Sodium Potassium Chloride Carbon Dioxide BUN Creatinine Glucose POC Glucose 184 H 216 H Lactic Acid Calcium Phosphorus Magnesium Direct Bilirubin AST ALT Alkaline Phosphatase Lactate Dehydrogenase Troponin T C-Reactive Protein Total Protein Albumin Prealbumin Triglycerides Cholesterol LDL Cholesterol Direct HDL Cholesterol Urine pH Urine WBC (Auto) Urine Creatinine Urine Total Protein Fluid Total Protein Vancomycin Trough Rheumatoid Factor Complement C4 Miscellaneous Test Crossmatch 09/09/16 09/09/16 09/09/16 03:00 03:00 04:04 WBC 27.9 H RBC Hgb 8.7 L Hct 28.1 L MCV 72 L MCH 22 L MCHC RDW 18.4 H Plt Count 485 H Lymph % (Auto) [place] % (Auto) Lymph # [place] # Baso # Seg Neutrophils % Seg Neuts % (Manual) 77.0 H Lymphocytes % (Manual) 9.0 L Monocytes % (Manual) Eosinophils % (Manual) Basophils % (Manual) Nucleated RBC % Seg Neutrophils # Seg Neutrophils # Man 21.5 H Lymphocytes # (Manual) Monocytes # (Manual) 2.0 H Eosinophils # (Manual) PT INR Fibrinogen dRVVT Confirm Interp Factor V Activity POC ABG pH POC ABG pCO2 POC ABG pO2 121 H ABG pO2 ABG HCO3 ABG Base Excess ABG Hemoglobin Oxyhemoglobin Sodium 135 L Potassium Chloride 96.3 L Carbon Dioxide 21 L BUN 83 H Creatinine 3.0 H Glucose 135 H POC Glucose Lactic Acid Calcium Phosphorus Magnesium Direct Bilirubin AST ALT Alkaline Phosphatase Lactate Dehydrogenase Troponin T C-Reactive Protein Total Protein Albumin Prealbumin Triglycerides Cholesterol LDL Cholesterol Direct HDL Cholesterol Urine pH Urine WBC (Auto) Urine Creatinine Urine Total Protein Fluid Total Protein Vancomycin Trough Rheumatoid Factor Complement C4 Miscellaneous Test Crossmatch 09/09/16 09/09/16 09/09/16 05:41 11:55 14:13 WBC RBC Hgb Hct MCV MCH MCHC RDW Plt Count Lymph % (Auto) [place] % (Auto) Lymph # [place] # Baso # Seg Neutrophils % Seg Neuts % (Manual) Lymphocytes % (Manual) Monocytes % (Manual) Eosinophils % (Manual) Basophils % (Manual) Nucleated RBC % Seg Neutrophils # Seg Neutrophils # Man Lymphocytes # (Manual) Monocytes # (Manual) Eosinophils # (Manual) PT INR Fibrinogen dRVVT Confirm Interp Factor V Activity POC ABG pH POC ABG pCO2 POC ABG pO2 ABG pO2 ABG HCO3 ABG Base Excess ABG Hemoglobin Oxyhemoglobin Sodium Potassium Chloride Carbon Dioxide BUN Creatinine Glucose POC Glucose 155 H 186 H Lactic Acid Calcium Phosphorus Magnesium Direct Bilirubin AST ALT Alkaline Phosphatase Lactate Dehydrogenase Troponin T C-Reactive Protein Total Protein Albumin Prealbumin Triglycerides Cholesterol LDL Cholesterol Direct HDL Cholesterol Urine pH Urine WBC (Auto) 25.0 H Urine Creatinine Urine Total Protein Fluid Total Protein Vancomycin Trough Rheumatoid Factor Complement C4 Miscellaneous Test Crossmatch 09/09/16 09/09/16 09/10/16 17:33 23:13 05:09 WBC RBC Hgb Hct MCV MCH MCHC RDW Plt Count Lymph % (Auto) [place] % (Auto) Lymph # [place] # Baso # Seg Neutrophils % Seg Neuts % (Manual) Lymphocytes % (Manual) Monocytes % (Manual) Eosinophils % (Manual) Basophils % (Manual) Nucleated RBC % Seg Neutrophils # Seg Neutrophils # Man Lymphocytes # (Manual) Monocytes # (Manual) Eosinophils # (Manual) PT INR Fibrinogen dRVVT Confirm Interp Factor V Activity POC ABG pH POC ABG pCO2 POC ABG pO2 74 L ABG pO2 ABG HCO3 ABG Base Excess ABG Hemoglobin Oxyhemoglobin Sodium Potassium Chloride Carbon Dioxide BUN Creatinine Glucose POC Glucose 211 H 215 H Lactic Acid Calcium Phosphorus Magnesium Direct Bilirubin AST ALT Alkaline Phosphatase Lactate Dehydrogenase Troponin T C-Reactive Protein Total Protein Albumin Prealbumin Triglycerides Cholesterol LDL Cholesterol Direct HDL Cholesterol Urine pH Urine WBC (Auto) Urine Creatinine Urine Total Protein Fluid Total Protein Vancomycin Trough Rheumatoid Factor Complement C4 Miscellaneous Test Crossmatch 09/10/16 09/10/16 09/10/16 05:17 05:17 11:31 WBC 15.8 H RBC 3.25 L Hgb 7.3 L Hct 22.9 L MCV 71 L MCH 23 L MCHC RDW 18.4 H Plt Count Lymph % (Auto) [place] % (Auto) Lymph # [place] # Baso # Seg Neutrophils % Seg Neuts % (Manual) 91.0 H Lymphocytes % (Manual) 4.0 L Monocytes % (Manual) Eosinophils % (Manual) Basophils % (Manual) Nucleated RBC % Seg Neutrophils # Seg Neutrophils # Man 14.4 H Lymphocytes # (Manual) 0.6 L Monocytes # (Manual) Eosinophils # (Manual) PT INR Fibrinogen dRVVT Confirm Interp Factor V Activity POC ABG pH POC ABG pCO2 POC ABG pO2 ABG pO2 ABG HCO3 ABG Base Excess ABG Hemoglobin Oxyhemoglobin Sodium Potassium Chloride Carbon Dioxide 21 L BUN 93 H Creatinine 2.9 H Glucose 146 H POC Glucose 188 H Lactic Acid Calcium 8.1 L Phosphorus Magnesium Direct Bilirubin AST ALT Alkaline Phosphatase Lactate Dehydrogenase Troponin T C-Reactive Protein Total Protein Albumin Prealbumin Triglycerides Cholesterol LDL Cholesterol Direct HDL Cholesterol Urine pH Urine WBC (Auto) Urine Creatinine Urine Total Protein Fluid Total Protein Vancomycin Trough Rheumatoid Factor Complement C4 Miscellaneous Test Crossmatch 09/10/16 09/10/16 09/10/16 13:17 17:20 23:32 WBC RBC Hgb Hct MCV MCH MCHC RDW Plt Count Lymph % (Auto) [place] % (Auto) Lymph # [place] # Baso # Seg Neutrophils % Seg Neuts % (Manual) Lymphocytes % (Manual) Monocytes % (Manual) Eosinophils % (Manual) Basophils % (Manual) Nucleated RBC % Seg Neutrophils # Seg Neutrophils # Man Lymphocytes # (Manual) Monocytes # (Manual) Eosinophils # (Manual) PT INR Fibrinogen dRVVT Confirm Interp Factor V Activity POC ABG pH POC ABG pCO2 POC ABG pO2 ABG pO2 ABG HCO3 ABG Base Excess ABG Hemoglobin Oxyhemoglobin Sodium Potassium Chloride Carbon Dioxide BUN Creatinine Glucose POC Glucose 199 H 186 H Lactic Acid Calcium Phosphorus Magnesium Direct Bilirubin AST ALT Alkaline Phosphatase Lactate Dehydrogenase Troponin T C-Reactive Protein Total Protein Albumin Prealbumin Triglycerides Cholesterol LDL Cholesterol Direct HDL Cholesterol Urine pH Urine WBC (Auto) Urine Creatinine Urine Total Protein Fluid Total Protein Vancomycin Trough Rheumatoid Factor Complement C4 Miscellaneous Test Crossmatch See Detail 09/11/16 09/11/16 09/11/16 05:10 05:10 05:17 WBC 28.4 H RBC Hgb 9.2 L Hct 29.3 L D MCV 73 L MCH 23 L MCHC RDW 18.9 H Plt Count 452 H Lymph % (Auto) [place] % (Auto) Lymph # [place] # Baso # Seg Neutrophils % Seg Neuts % (Manual) 89.5 H Lymphocytes % (Manual) 2.0 L Monocytes % (Manual) Eosinophils % (Manual) Basophils % (Manual) Nucleated RBC % Seg Neutrophils # Seg Neutrophils # Man 25.4 H Lymphocytes # (Manual) 0.6 L Monocytes # (Manual) 1.3 H Eosinophils # (Manual) PT INR Fibrinogen dRVVT Confirm Interp Factor V Activity POC ABG pH POC ABG pCO2 POC ABG pO2 ABG pO2 ABG HCO3 ABG Base Excess ABG Hemoglobin Oxyhemoglobin Sodium 136 L Potassium Chloride Carbon Dioxide 18 L BUN 107 H Creatinine 2.6 H Glucose 187 H POC Glucose 230 H Lactic Acid Calcium 8.3 L Phosphorus Magnesium Direct Bilirubin AST ALT Alkaline Phosphatase Lactate Dehydrogenase Troponin T C-Reactive Protein Total Protein Albumin Prealbumin Triglycerides Cholesterol LDL Cholesterol Direct HDL Cholesterol Urine pH Urine WBC (Auto) Urine Creatinine Urine Total Protein Fluid Total Protein Vancomycin Trough Rheumatoid Factor Complement C4 Miscellaneous Test Crossmatch 09/11/16 09/11/16 09/11/16 05:55 12:02 17:32 WBC RBC Hgb Hct MCV MCH MCHC RDW Plt Count Lymph % (Auto) [place] % (Auto) Lymph # [place] # Baso # Seg Neutrophils % Seg Neuts % (Manual) Lymphocytes % (Manual) Monocytes % (Manual) Eosinophils % (Manual) Basophils % (Manual) Nucleated RBC % Seg Neutrophils # Seg Neutrophils # Man Lymphocytes # (Manual) Monocytes # (Manual) Eosinophils # (Manual) PT INR Fibrinogen dRVVT Confirm Interp Factor V Activity POC ABG pH POC ABG pCO2 33.8 L POC ABG pO2 ABG pO2 ABG HCO3 ABG Base Excess ABG Hemoglobin Oxyhemoglobin Sodium Potassium Chloride Carbon Dioxide BUN Creatinine Glucose POC Glucose 191 H 239 H Lactic Acid Calcium Phosphorus Magnesium Direct Bilirubin AST ALT Alkaline Phosphatase Lactate Dehydrogenase Troponin T C-Reactive Protein Total Protein Albumin Prealbumin Triglycerides Cholesterol LDL Cholesterol Direct HDL Cholesterol Urine pH Urine WBC (Auto) Urine Creatinine Urine Total Protein Fluid Total Protein Vancomycin Trough Rheumatoid Factor Complement C4 Miscellaneous Test Crossmatch 09/11/16 09/12/16 09/12/16 23:52 05:09 05:32 WBC RBC Hgb Hct MCV MCH MCHC RDW Plt Count Lymph % (Auto) [place] % (Auto) Lymph # [place] # Baso # Seg Neutrophils % Seg Neuts % (Manual) Lymphocytes % (Manual) Monocytes % (Manual) Eosinophils % (Manual) Basophils % (Manual) Nucleated RBC % Seg Neutrophils # Seg Neutrophils # Man Lymphocytes # (Manual) Monocytes # (Manual) Eosinophils # (Manual) PT INR Fibrinogen dRVVT Confirm Interp Factor V Activity POC ABG pH POC ABG pCO2 34.6 L POC ABG pO2 ABG pO2 ABG HCO3 ABG Base Excess ABG Hemoglobin Oxyhemoglobin Sodium Potassium Chloride Carbon Dioxide BUN Creatinine Glucose POC Glucose 265 H 184 H Lactic Acid Calcium Phosphorus Magnesium Direct Bilirubin AST ALT Alkaline Phosphatase Lactate Dehydrogenase Troponin T C-Reactive Protein Total Protein Albumin Prealbumin Triglycerides Cholesterol LDL Cholesterol Direct HDL Cholesterol Urine pH Urine WBC (Auto) Urine Creatinine Urine Total Protein Fluid Total Protein Vancomycin Trough Rheumatoid Factor Complement C4 Miscellaneous Test Crossmatch 09/12/16 09/12/16 09/12/16 06:45 06:45 07:22 WBC 31.7 H RBC 3.54 L Hgb 8.3 L Hct 25.9 L MCV 73 L MCH 23 L MCHC RDW 18.9 H Plt Count Lymph % (Auto) [place] % (Auto) Lymph # [place] # Baso # Seg Neutrophils % Seg Neuts % (Manual) 88.5 H Lymphocytes % (Manual) 4.5 L Monocytes % (Manual) Eosinophils % (Manual) Basophils % (Manual) Nucleated RBC % Seg Neutrophils # Seg Neutrophils # Man 28.1 H Lymphocytes # (Manual) Monocytes # (Manual) 1.0 H Eosinophils # (Manual) PT INR Fibrinogen dRVVT Confirm Interp Factor V Activity POC ABG pH POC ABG pCO2 POC ABG pO2 ABG pO2 ABG HCO3 ABG Base Excess ABG Hemoglobin Oxyhemoglobin Sodium Potassium Chloride Carbon Dioxide 20 L BUN 115 H Creatinine 2.7 H Glucose 165 H POC Glucose Lactic Acid Calcium 8.0 L Phosphorus Magnesium Direct Bilirubin AST ALT Alkaline Phosphatase Lactate Dehydrogenase Troponin T C-Reactive Protein Total Protein Albumin Prealbumin Triglycerides 217 H Cholesterol LDL Cholesterol Direct HDL Cholesterol Urine pH Urine WBC (Auto) Urine Creatinine Urine Total Protein Fluid Total Protein Vancomycin Trough Rheumatoid Factor Complement C4 Miscellaneous Test Crossmatch 09/12/16 09/12/16 09/12/16 07:22 09:59 12:21 WBC RBC Hgb Hct MCV MCH MCHC RDW Plt Count Lymph % (Auto) [place] % (Auto) Lymph # [place] # Baso # Seg Neutrophils % Seg Neuts % (Manual) Lymphocytes % (Manual) Monocytes % (Manual) Eosinophils % (Manual) Basophils % (Manual) Nucleated RBC % Seg Neutrophils # Seg Neutrophils # Man Lymphocytes # (Manual) Monocytes # (Manual) Eosinophils # (Manual) PT INR Fibrinogen dRVVT Confirm Interp Positive H Factor V Activity POC ABG pH POC ABG pCO2 POC ABG pO2 ABG pO2 ABG HCO3 ABG Base Excess ABG Hemoglobin Oxyhemoglobin Sodium Potassium Chloride Carbon Dioxide BUN Creatinine Glucose POC Glucose 224 H Lactic Acid Calcium Phosphorus Magnesium Direct Bilirubin AST ALT Alkaline Phosphatase Lactate Dehydrogenase Troponin T C-Reactive Protein 1.70 H Total Protein Albumin Prealbumin Triglycerides Cholesterol LDL Cholesterol Direct HDL Cholesterol Urine pH Urine WBC (Auto) Urine Creatinine Urine Total Protein Fluid Total Protein Vancomycin Trough Rheumatoid Factor Complement C4 Miscellaneous Test Crossmatch 09/12/16 09/12/16 09/13/16 16:51 23:28 04:00 WBC 45.0 H* RBC Hgb 9.4 L Hct MCV 75 L MCH 23 L MCHC RDW 19.0 H Plt Count 470 H Lymph % (Auto) [place] % (Auto) Lymph # [place] # Baso # Seg Neutrophils % Seg Neuts % (Manual) 89.0 H Lymphocytes % (Manual) 5.0 L Monocytes % (Manual) Eosinophils % (Manual) Basophils % (Manual) Nucleated RBC % Seg Neutrophils # Seg Neutrophils # Man 40.1 H Lymphocytes # (Manual) Monocytes # (Manual) Eosinophils # (Manual) PT INR Fibrinogen dRVVT Confirm Interp Factor V Activity POC ABG pH POC ABG pCO2 POC ABG pO2 ABG pO2 ABG HCO3 ABG Base Excess ABG Hemoglobin Oxyhemoglobin Sodium Potassium Chloride Carbon Dioxide BUN Creatinine Glucose POC Glucose 169 H 150 H Lactic Acid Calcium Phosphorus Magnesium Direct Bilirubin AST ALT Alkaline Phosphatase Lactate Dehydrogenase Troponin T C-Reactive Protein Total Protein Albumin Prealbumin Triglycerides Cholesterol LDL Cholesterol Direct HDL Cholesterol Urine pH Urine WBC (Auto) Urine Creatinine Urine Total Protein Fluid Total Protein Vancomycin Trough Rheumatoid Factor Complement C4 Miscellaneous Test Crossmatch 09/13/16 09/13/16 09/13/16 04:00 11:26 17:31 WBC RBC Hgb Hct MCV MCH MCHC RDW Plt Count Lymph % (Auto) [place] % (Auto) Lymph # [place] # Baso # Seg Neutrophils % Seg Neuts % (Manual) Lymphocytes % (Manual) Monocytes % (Manual) Eosinophils % (Manual) Basophils % (Manual) Nucleated RBC % Seg Neutrophils # Seg Neutrophils # Man Lymphocytes # (Manual) Monocytes # (Manual) Eosinophils # (Manual) PT INR Fibrinogen dRVVT Confirm Interp Factor V Activity POC ABG pH POC ABG pCO2 POC ABG pO2 ABG pO2 ABG HCO3 ABG Base Excess ABG Hemoglobin Oxyhemoglobin Sodium Potassium Chloride Carbon Dioxide 20 L BUN 116 H Creatinine 3.0 H Glucose 172 H POC Glucose 140 H 183 H Lactic Acid Calcium Phosphorus Magnesium Direct Bilirubin AST ALT Alkaline Phosphatase Lactate Dehydrogenase Troponin T C-Reactive Protein Total Protein 6.2 L Albumin 2.9 L Prealbumin Triglycerides Cholesterol LDL Cholesterol Direct HDL Cholesterol Urine pH Urine WBC (Auto) Urine Creatinine Urine Total Protein Fluid Total Protein Vancomycin Trough Rheumatoid Factor Complement C4 Miscellaneous Test Crossmatch 09/13/16 09/14/16 09/14/16 23:23 04:06 04:07 WBC 29.4 H RBC Hgb 8.9 L Hct 27.3 L MCV 75 L MCH 24 L MCHC RDW 19.1 H Plt Count Lymph % (Auto) [place] % (Auto) Lymph # [place] # Baso # Seg Neutrophils % Seg Neuts % (Manual) 84.0 H Lymphocytes % (Manual) 6.0 L Monocytes % (Manual) 9.0 H Eosinophils % (Manual) Basophils % (Manual) Nucleated RBC % Seg Neutrophils # Seg Neutrophils # Man 24.7 H Lymphocytes # (Manual) Monocytes # (Manual) 2.6 H Eosinophils # (Manual) PT INR Fibrinogen dRVVT Confirm Interp Factor V Activity POC ABG pH 7.342 L POC ABG pCO2 POC ABG pO2 116 H ABG pO2 ABG HCO3 ABG Base Excess ABG Hemoglobin Oxyhemoglobin Sodium Potassium Chloride Carbon Dioxide BUN Creatinine Glucose POC Glucose 154 H Lactic Acid Calcium Phosphorus Magnesium Direct Bilirubin AST ALT Alkaline Phosphatase Lactate Dehydrogenase Troponin T C-Reactive Protein Total Protein Albumin Prealbumin Triglycerides Cholesterol LDL Cholesterol Direct HDL Cholesterol Urine pH Urine WBC (Auto) Urine Creatinine Urine Total Protein Fluid Total Protein Vancomycin Trough Rheumatoid Factor Complement C4 Miscellaneous Test Crossmatch 09/14/16 09/14/16 09/14/16 04:07 05:29 12:19 WBC RBC Hgb Hct MCV MCH MCHC RDW Plt Count Lymph % (Auto) [place] % (Auto) Lymph # [place] # Baso # Seg Neutrophils % Seg Neuts % (Manual) Lymphocytes % (Manual) Monocytes % (Manual) Eosinophils % (Manual) Basophils % (Manual) Nucleated RBC % Seg Neutrophils # Seg Neutrophils # Man Lymphocytes # (Manual) Monocytes # (Manual) Eosinophils # (Manual) PT INR Fibrinogen dRVVT Confirm Interp Factor V Activity POC ABG pH POC ABG pCO2 POC ABG pO2 ABG pO2 ABG HCO3 ABG Base Excess ABG Hemoglobin Oxyhemoglobin Sodium 136 L Potassium Chloride Carbon Dioxide 18 L BUN 121 H Creatinine 2.8 H Glucose 214 H POC Glucose 239 H 181 H Lactic Acid Calcium Phosphorus Magnesium Direct Bilirubin AST ALT Alkaline Phosphatase Lactate Dehydrogenase Troponin T C-Reactive Protein Total Protein Albumin Prealbumin Triglycerides Cholesterol LDL Cholesterol Direct HDL Cholesterol Urine pH Urine WBC (Auto) Urine Creatinine Urine Total Protein Fluid Total Protein Vancomycin Trough Rheumatoid Factor Complement C4 Miscellaneous Test Crossmatch 09/14/16 09/14/16 09/15/16 18:12 23:37 05:00 WBC 26.1 H RBC 3.05 L Hgb 7.2 L Hct 22.9 L MCV 75 L MCH 24 L MCHC RDW 19.0 H Plt Count Lymph % (Auto) [place] % (Auto) Lymph # [place] # Baso # Seg Neutrophils % Seg Neuts % (Manual) Lymphocytes % (Manual) Monocytes % (Manual) Eosinophils % (Manual) Basophils % (Manual) Nucleated RBC % Seg Neutrophils # Seg Neutrophils # Man Lymphocytes # (Manual) Monocytes # (Manual) Eosinophils # (Manual) PT INR Fibrinogen dRVVT Confirm Interp Factor V Activity POC ABG pH POC ABG pCO2 POC ABG pO2 ABG pO2 ABG HCO3 ABG Base Excess ABG Hemoglobin Oxyhemoglobin Sodium Potassium Chloride Carbon Dioxide BUN Creatinine Glucose POC Glucose 266 H 154 H Lactic Acid Calcium Phosphorus Magnesium Direct Bilirubin AST ALT Alkaline Phosphatase Lactate Dehydrogenase Troponin T C-Reactive Protein Total Protein Albumin Prealbumin Triglycerides Cholesterol LDL Cholesterol Direct HDL Cholesterol Urine pH Urine WBC (Auto) Urine Creatinine Urine Total Protein Fluid Total Protein Vancomycin Trough Rheumatoid Factor Complement C4 Miscellaneous Test Crossmatch 09/15/16 09/15/16 09/15/16 05:00 05:17 12:45 WBC RBC Hgb Hct MCV MCH MCHC RDW Plt Count Lymph % (Auto) [place] % (Auto) Lymph # [place] # Baso # Seg Neutrophils % Seg Neuts % (Manual) Lymphocytes % (Manual) Monocytes % (Manual) Eosinophils % (Manual) Basophils % (Manual) Nucleated RBC % Seg Neutrophils # Seg Neutrophils # Man Lymphocytes # (Manual) Monocytes # (Manual) Eosinophils # (Manual) PT INR Fibrinogen dRVVT Confirm Interp Factor V Activity POC ABG pH POC ABG pCO2 POC ABG pO2 ABG pO2 ABG HCO3 ABG Base Excess ABG Hemoglobin Oxyhemoglobin Sodium Potassium 5.2 H Chloride Carbon Dioxide 18 L BUN 139 H Creatinine 3.7 H Glucose 227 H POC Glucose 226 H 244 H Lactic Acid Calcium 8.3 L Phosphorus Magnesium Direct Bilirubin AST ALT Alkaline Phosphatase Lactate Dehydrogenase Troponin T C-Reactive Protein Total Protein Albumin Prealbumin Triglycerides Cholesterol LDL Cholesterol Direct HDL Cholesterol Urine pH Urine WBC (Auto) Urine Creatinine Urine Total Protein Fluid Total Protein Vancomycin Trough Rheumatoid Factor Complement C4 Miscellaneous Test Crossmatch 09/15/16 09/15/16 09/15/16 14:32 17:33 23:35 WBC RBC Hgb Hct MCV MCH MCHC RDW Plt Count Lymph % (Auto) [place] % (Auto) Lymph # [place] # Baso # Seg Neutrophils % Seg Neuts % (Manual) Lymphocytes % (Manual) Monocytes % (Manual) Eosinophils % (Manual) Basophils % (Manual) Nucleated RBC % Seg Neutrophils # Seg Neutrophils # Man Lymphocytes # (Manual) Monocytes # (Manual) Eosinophils # (Manual) PT INR Fibrinogen dRVVT Confirm Interp Factor V Activity POC ABG pH POC ABG pCO2 27.7 L POC ABG pO2 120 H ABG pO2 ABG HCO3 ABG Base Excess ABG Hemoglobin Oxyhemoglobin Sodium Potassium Chloride Carbon Dioxide BUN Creatinine Glucose POC Glucose 232 H 167 H Lactic Acid Calcium Phosphorus Magnesium Direct Bilirubin AST ALT Alkaline Phosphatase Lactate Dehydrogenase Troponin T C-Reactive Protein Total Protein Albumin Prealbumin Triglycerides Cholesterol LDL Cholesterol Direct HDL Cholesterol Urine pH Urine WBC (Auto) Urine Creatinine Urine Total Protein Fluid Total Protein Vancomycin Trough Rheumatoid Factor Complement C4 Miscellaneous Test Crossmatch 09/16/16 09/16/16 09/16/16 03:58 10:27 10:27 WBC 19.0 H RBC 2.77 L Hgb 6.5 L Hct 20.9 L MCV 76 L MCH 23 L MCHC RDW 19.3 H Plt Count Lymph % (Auto) 11.0 L [place] % (Auto) Lymph # [place] # 1.1 H Baso # Seg Neutrophils % 82.5 H Seg Neuts % (Manual) Lymphocytes % (Manual) Monocytes % (Manual) Eosinophils % (Manual) Basophils % (Manual) Nucleated RBC % Seg Neutrophils # 15.7 H Seg Neutrophils # Man Lymphocytes # (Manual) Monocytes # (Manual) Eosinophils # (Manual) PT INR Fibrinogen dRVVT Confirm Interp Factor V Activity POC ABG pH POC ABG pCO2 POC ABG pO2 ABG pO2 ABG HCO3 ABG Base Excess ABG Hemoglobin Oxyhemoglobin Sodium Potassium Chloride 109.3 H Carbon Dioxide 18 L BUN 139 H Creatinine 4.1 H Glucose 144 H POC Glucose 146 H Lactic Acid Calcium 8.1 L Phosphorus Magnesium Direct Bilirubin AST ALT Alkaline Phosphatase Lactate Dehydrogenase Troponin T C-Reactive Protein Total Protein Albumin Prealbumin Triglycerides Cholesterol LDL Cholesterol Direct HDL Cholesterol Urine pH Urine WBC (Auto) Urine Creatinine Urine Total Protein Fluid Total Protein Vancomycin Trough Rheumatoid Factor Complement C4 Miscellaneous Test Crossmatch 09/16/16 09/16/16 09/16/16 12:04 12:10 13:55 WBC RBC Hgb Hct MCV MCH MCHC RDW Plt Count Lymph % (Auto) [place] % (Auto) Lymph # [place] # Baso # Seg Neutrophils % Seg Neuts % (Manual) Lymphocytes % (Manual) Monocytes % (Manual) Eosinophils % (Manual) Basophils % (Manual) Nucleated RBC % Seg Neutrophils # Seg Neutrophils # Man Lymphocytes # (Manual) Monocytes # (Manual) Eosinophils # (Manual) PT INR Fibrinogen dRVVT Confirm Interp Factor V Activity POC ABG pH POC ABG pCO2 32.9 L POC ABG pO2 ABG pO2 ABG HCO3 ABG Base Excess ABG Hemoglobin Oxyhemoglobin Sodium Potassium Chloride Carbon Dioxide BUN Creatinine Glucose POC Glucose 185 H Lactic Acid Calcium Phosphorus Magnesium Direct Bilirubin AST ALT Alkaline Phosphatase Lactate Dehydrogenase Troponin T C-Reactive Protein Total Protein Albumin Prealbumin Triglycerides Cholesterol LDL Cholesterol Direct HDL Cholesterol Urine pH Urine WBC (Auto) Urine Creatinine Urine Total Protein Fluid Total Protein Vancomycin Trough Rheumatoid Factor Complement C4 Miscellaneous Test Crossmatch See Detail 09/16/16 09/16/16 09/16/16 17:55 19:19 23:48 WBC RBC Hgb Hct MCV MCH MCHC RDW Plt Count Lymph % (Auto) [place] % (Auto) Lymph # [place] # Baso # Seg Neutrophils % Seg Neuts % (Manual) Lymphocytes % (Manual) Monocytes % (Manual) Eosinophils % (Manual) Basophils % (Manual) Nucleated RBC % Seg Neutrophils # Seg Neutrophils # Man Lymphocytes # (Manual) Monocytes # (Manual) Eosinophils # (Manual) PT INR Fibrinogen dRVVT Confirm Interp Factor V Activity POC ABG pH POC ABG pCO2 POC ABG pO2 ABG pO2 ABG HCO3 ABG Base Excess ABG Hemoglobin Oxyhemoglobin Sodium Potassium Chloride Carbon Dioxide BUN Creatinine Glucose POC Glucose 222 H 107 H Lactic Acid Calcium Phosphorus Magnesium Direct Bilirubin AST ALT Alkaline Phosphatase Lactate Dehydrogenase Troponin T C-Reactive Protein Total Protein Albumin Prealbumin Triglycerides Cholesterol LDL Cholesterol Direct HDL Cholesterol Urine pH Urine WBC (Auto) Urine Creatinine 47.4 H Urine Total Protein 16 H Fluid Total Protein Vancomycin Trough Rheumatoid Factor Complement C4 Miscellaneous Test Crossmatch 09/17/16 09/17/16 09/17/16 03:45 03:45 04:55 WBC 19.6 H RBC 3.41 L Hgb 8.5 L Hct 26.7 L MCV 78 L MCH 25 L MCHC RDW 19.9 H Plt Count Lymph % (Auto) 9.3 L [place] % (Auto) Lymph # [place] # 1.2 H Baso # Seg Neutrophils % 83.9 H Seg Neuts % (Manual) Lymphocytes % (Manual) Monocytes % (Manual) Eosinophils % (Manual) Basophils % (Manual) Nucleated RBC % Seg Neutrophils # 16.4 H Seg Neutrophils # Man Lymphocytes # (Manual) Monocytes # (Manual) Eosinophils # (Manual) PT INR Fibrinogen dRVVT Confirm Interp Factor V Activity POC ABG pH POC ABG pCO2 POC ABG pO2 ABG pO2 ABG HCO3 ABG Base Excess ABG Hemoglobin Oxyhemoglobin Sodium 146 H Potassium 5.1 H Chloride 110.9 H Carbon Dioxide 16 L BUN 146 H Creatinine 4.0 H Glucose 108 H POC Glucose 133 H Lactic Acid Calcium Phosphorus Magnesium 3.00 H Direct Bilirubin AST ALT Alkaline Phosphatase Lactate Dehydrogenase Troponin T C-Reactive Protein Total Protein Albumin Prealbumin Triglycerides Cholesterol LDL Cholesterol Direct HDL Cholesterol Urine pH Urine WBC (Auto) Urine Creatinine Urine Total Protein Fluid Total Protein Vancomycin Trough Rheumatoid Factor Complement C4 Miscellaneous Test Crossmatch 09/17/16 09/17/16 09/17/16 11:15 17:33 23:47 WBC RBC Hgb Hct MCV MCH MCHC RDW Plt Count Lymph % (Auto) [place] % (Auto) Lymph # [place] # Baso # Seg Neutrophils % Seg Neuts % (Manual) Lymphocytes % (Manual) Monocytes % (Manual) Eosinophils % (Manual) Basophils % (Manual) Nucleated RBC % Seg Neutrophils # Seg Neutrophils # Man Lymphocytes # (Manual) Monocytes # (Manual) Eosinophils # (Manual) PT INR Fibrinogen dRVVT Confirm Interp Factor V Activity POC ABG pH POC ABG pCO2 POC ABG pO2 ABG pO2 ABG HCO3 ABG Base Excess ABG Hemoglobin Oxyhemoglobin Sodium Potassium Chloride Carbon Dioxide BUN Creatinine Glucose POC Glucose 176 H 246 H 148 H Lactic Acid Calcium Phosphorus Magnesium Direct Bilirubin AST ALT Alkaline Phosphatase Lactate Dehydrogenase Troponin T C-Reactive Protein Total Protein Albumin Prealbumin Triglycerides Cholesterol LDL Cholesterol Direct HDL Cholesterol Urine pH Urine WBC (Auto) Urine Creatinine Urine Total Protein Fluid Total Protein Vancomycin Trough Rheumatoid Factor Complement C4 Miscellaneous Test Crossmatch 09/18/16 09/18/16 09/18/16 05:33 08:31 08:31 WBC 18.0 H RBC 3.17 L Hgb 9.0 L Hct 25.7 L MCV MCH MCHC 35 H RDW 20.4 H Plt Count Lymph % (Auto) [place] % (Auto) Lymph # [place] # Baso # Seg Neutrophils % Seg Neuts % (Manual) Lymphocytes % (Manual) Monocytes % (Manual) Eosinophils % (Manual) Basophils % (Manual) Nucleated RBC % Seg Neutrophils # Seg Neutrophils # Man Lymphocytes # (Manual) Monocytes # (Manual) Eosinophils # (Manual) PT INR Fibrinogen dRVVT Confirm Interp Factor V Activity POC ABG pH POC ABG pCO2 POC ABG pO2 ABG pO2 ABG HCO3 ABG Base Excess ABG Hemoglobin Oxyhemoglobin Sodium Potassium Chloride Carbon Dioxide 15 L BUN 124 H Creatinine 3.8 H Glucose POC Glucose 120 H Lactic Acid Calcium 8.1 L Phosphorus Magnesium Direct Bilirubin AST ALT Alkaline Phosphatase Lactate Dehydrogenase Troponin T C-Reactive Protein Total Protein Albumin Prealbumin Triglycerides Cholesterol LDL Cholesterol Direct HDL Cholesterol Urine pH Urine WBC (Auto) Urine Creatinine Urine Total Protein Fluid Total Protein Vancomycin Trough Rheumatoid Factor Complement C4 Miscellaneous Test Crossmatch 09/18/16 09/18/16 09/18/16 12:03 15:34 17:50 WBC RBC Hgb Hct MCV MCH MCHC RDW Plt Count Lymph % (Auto) [place] % (Auto) Lymph # [place] # Baso # Seg Neutrophils % Seg Neuts % (Manual) Lymphocytes % (Manual) Monocytes % (Manual) Eosinophils % (Manual) Basophils % (Manual) Nucleated RBC % Seg Neutrophils # Seg Neutrophils # Man Lymphocytes # (Manual) Monocytes # (Manual) Eosinophils # (Manual) PT INR Fibrinogen dRVVT Confirm Interp Factor V Activity POC ABG pH POC ABG pCO2 25.7 L POC ABG pO2 66 L ABG pO2 ABG HCO3 ABG Base Excess ABG Hemoglobin Oxyhemoglobin Sodium Potassium Chloride Carbon Dioxide BUN Creatinine Glucose POC Glucose 156 H 220 H Lactic Acid Calcium Phosphorus Magnesium Direct Bilirubin AST ALT Alkaline Phosphatase Lactate Dehydrogenase Troponin T C-Reactive Protein Total Protein Albumin Prealbumin Triglycerides Cholesterol LDL Cholesterol Direct HDL Cholesterol Urine pH Urine WBC (Auto) Urine Creatinine Urine Total Protein Fluid Total Protein Vancomycin Trough Rheumatoid Factor Complement C4 Miscellaneous Test Crossmatch 09/19/16 09/19/16 09/19/16 06:21 09:50 09:50 WBC 17.1 H RBC 3.49 L Hgb 9.0 L Hct 28.1 L MCV MCH 26 L MCHC RDW 20.8 H Plt Count Lymph % (Auto) 11.5 L [place] % (Auto) 7.5 H Lymph # [place] # 1.3 H Baso # Seg Neutrophils % 79.8 H Seg Neuts % (Manual) Lymphocytes % (Manual) Monocytes % (Manual) Eosinophils % (Manual) Basophils % (Manual) Nucleated RBC % Seg Neutrophils # 13.7 H Seg Neutrophils # Man Lymphocytes # (Manual) Monocytes # (Manual) Eosinophils # (Manual) PT INR Fibrinogen dRVVT Confirm Interp Factor V Activity POC ABG pH POC ABG pCO2 POC ABG pO2 ABG pO2 ABG HCO3 ABG Base Excess ABG Hemoglobin Oxyhemoglobin Sodium Potassium Chloride 108.6 H Carbon Dioxide 15 L BUN 125 H Creatinine 4.1 H Glucose 124 H POC Glucose 119 H Lactic Acid Calcium Phosphorus Magnesium Direct Bilirubin AST ALT Alkaline Phosphatase Lactate Dehydrogenase Troponin T C-Reactive Protein Total Protein Albumin Prealbumin Triglycerides Cholesterol LDL Cholesterol Direct HDL Cholesterol Urine pH Urine WBC (Auto) Urine Creatinine Urine Total Protein Fluid Total Protein Vancomycin Trough Rheumatoid Factor Complement C4 Miscellaneous Test Crossmatch 09/19/16 09/19/16 09/19/16 11:25 17:53 23:36 WBC RBC Hgb Hct MCV MCH MCHC RDW Plt Count Lymph % (Auto) [place] % (Auto) Lymph # [place] # Baso # Seg Neutrophils % Seg Neuts % (Manual) Lymphocytes % (Manual) Monocytes % (Manual) Eosinophils % (Manual) Basophils % (Manual) Nucleated RBC % Seg Neutrophils # Seg Neutrophils # Man Lymphocytes # (Manual) Monocytes # (Manual) Eosinophils # (Manual) PT INR Fibrinogen dRVVT Confirm Interp Factor V Activity POC ABG pH POC ABG pCO2 POC ABG pO2 ABG pO2 ABG HCO3 ABG Base Excess ABG Hemoglobin Oxyhemoglobin Sodium Potassium Chloride Carbon Dioxide BUN Creatinine Glucose POC Glucose 160 H 245 H 121 H Lactic Acid Calcium Phosphorus Magnesium Direct Bilirubin AST ALT Alkaline Phosphatase Lactate Dehydrogenase Troponin T C-Reactive Protein Total Protein Albumin Prealbumin Triglycerides Cholesterol LDL Cholesterol Direct HDL Cholesterol Urine pH Urine WBC (Auto) Urine Creatinine Urine Total Protein Fluid Total Protein Vancomycin Trough Rheumatoid Factor Complement C4 Miscellaneous Test Crossmatch 09/20/16 09/20/16 09/20/16 04:10 04:10 04:10 WBC 17.0 H RBC 3.21 L Hgb 8.2 L Hct 25.5 L MCV MCH 26 L MCHC RDW 20.9 H Plt Count Lymph % (Auto) [place] % (Auto) Lymph # [place] # Baso # Seg Neutrophils % Seg Neuts % (Manual) Lymphocytes % (Manual) Monocytes % (Manual) Eosinophils % (Manual) Basophils % (Manual) Nucleated RBC % Seg Neutrophils # Seg Neutrophils # Man Lymphocytes # (Manual) Monocytes # (Manual) Eosinophils # (Manual) PT INR Fibrinogen dRVVT Confirm Interp Factor V Activity POC ABG pH POC ABG pCO2 POC ABG pO2 ABG pO2 ABG HCO3 ABG Base Excess ABG Hemoglobin Oxyhemoglobin Sodium Potassium Chloride 111.0 H Carbon Dioxide 16 L BUN 129 H Creatinine 3.7 H Glucose 115 H POC Glucose Lactic Acid Calcium 8.2 L Phosphorus Magnesium Direct Bilirubin AST ALT Alkaline Phosphatase Lactate Dehydrogenase Troponin T C-Reactive Protein Total Protein Albumin Prealbumin Triglycerides 243 H Cholesterol LDL Cholesterol Direct HDL Cholesterol Urine pH Urine WBC (Auto) Urine Creatinine Urine Total Protein Fluid Total Protein Vancomycin Trough Rheumatoid Factor Complement C4 Miscellaneous Test Crossmatch 09/20/16 09/20/16 09/20/16 05:40 11:52 16:50 WBC RBC Hgb Hct MCV MCH MCHC RDW Plt Count Lymph % (Auto) [place] % (Auto) Lymph # [place] # Baso # Seg Neutrophils % Seg Neuts % (Manual) Lymphocytes % (Manual) Monocytes % (Manual) Eosinophils % (Manual) Basophils % (Manual) Nucleated RBC % Seg Neutrophils # Seg Neutrophils # Man Lymphocytes # (Manual) Monocytes # (Manual) Eosinophils # (Manual) PT INR Fibrinogen dRVVT Confirm Interp Factor V Activity POC ABG pH POC ABG pCO2 POC ABG pO2 ABG pO2 ABG HCO3 ABG Base Excess ABG Hemoglobin Oxyhemoglobin Sodium Potassium Chloride Carbon Dioxide BUN Creatinine Glucose POC Glucose 131 H 183 H 236 H Lactic Acid Calcium Phosphorus Magnesium Direct Bilirubin AST ALT Alkaline Phosphatase Lactate Dehydrogenase Troponin T C-Reactive Protein Total Protein Albumin Prealbumin Triglycerides Cholesterol LDL Cholesterol Direct HDL Cholesterol Urine pH Urine WBC (Auto) Urine Creatinine Urine Total Protein Fluid Total Protein Vancomycin Trough Rheumatoid Factor Complement C4 Miscellaneous Test Crossmatch 09/20/16 09/21/16 09/21/16 23:51 03:30 04:44 WBC RBC Hgb Hct MCV MCH MCHC RDW Plt Count Lymph % (Auto) [place] % (Auto) Lymph # [place] # Baso # Seg Neutrophils % Seg Neuts % (Manual) Lymphocytes % (Manual) Monocytes % (Manual) Eosinophils % (Manual) Basophils % (Manual) Nucleated RBC % Seg Neutrophils # Seg Neutrophils # Man Lymphocytes # (Manual) Monocytes # (Manual) Eosinophils # (Manual) PT INR Fibrinogen dRVVT Confirm Interp Factor V Activity POC ABG pH POC ABG pCO2 POC ABG pO2 ABG pO2 ABG HCO3 ABG Base Excess ABG Hemoglobin Oxyhemoglobin Sodium Potassium Chloride Carbon Dioxide BUN Creatinine Glucose POC Glucose 114 H 141 H Lactic Acid Calcium Phosphorus Magnesium 2.70 H Direct Bilirubin AST ALT Alkaline Phosphatase Lactate Dehydrogenase Troponin T C-Reactive Protein Total Protein Albumin Prealbumin Triglycerides Cholesterol LDL Cholesterol Direct HDL Cholesterol Urine pH Urine WBC (Auto) Urine Creatinine Urine Total Protein Fluid Total Protein Vancomycin Trough Rheumatoid Factor Complement C4 Miscellaneous Test Crossmatch 09/21/16 09/21/16 09/21/16 07:45 07:45 10:01 WBC 13.8 H RBC 2.94 L Hgb 7.5 L Hct 23.5 L MCV MCH 26 L MCHC RDW 21.2 H Plt Count Lymph % (Auto) 6.9 L [place] % (Auto) 9.4 H Lymph # 0.9 L [place] # 1.3 H Baso # Seg Neutrophils % 83.2 H Seg Neuts % (Manual) Lymphocytes % (Manual) Monocytes % (Manual) Eosinophils % (Manual) Basophils % (Manual) Nucleated RBC % Seg Neutrophils # 11.5 H Seg Neutrophils # Man Lymphocytes # (Manual) Monocytes # (Manual) Eosinophils # (Manual) PT INR Fibrinogen dRVVT Confirm Interp Factor V Activity POC ABG pH 7.308 L POC ABG pCO2 31.9 L POC ABG pO2 148 H ABG pO2 ABG HCO3 ABG Base Excess ABG Hemoglobin Oxyhemoglobin Sodium 147 H Potassium Chloride 114.2 H Carbon Dioxide 15 L BUN 120 H Creatinine 3.9 H Glucose 156 H POC Glucose Lactic Acid Calcium 8.2 L Phosphorus Magnesium Direct Bilirubin AST ALT Alkaline Phosphatase Lactate Dehydrogenase Troponin T C-Reactive Protein Total Protein Albumin Prealbumin Triglycerides Cholesterol LDL Cholesterol Direct HDL Cholesterol Urine pH Urine WBC (Auto) Urine Creatinine Urine Total Protein Fluid Total Protein Vancomycin Trough Rheumatoid Factor Complement C4 Miscellaneous Test Crossmatch 09/21/16 09/21/16 09/21/16 12:00 12:03 13:00 WBC RBC Hgb Hct MCV MCH MCHC RDW Plt Count Lymph % (Auto) [place] % (Auto) Lymph # [place] # Baso # Seg Neutrophils % Seg Neuts % (Manual) Lymphocytes % (Manual) Monocytes % (Manual) Eosinophils % (Manual) Basophils % (Manual) Nucleated RBC % Seg Neutrophils # Seg Neutrophils # Man Lymphocytes # (Manual) Monocytes # (Manual) Eosinophils # (Manual) PT INR Fibrinogen dRVVT Confirm Interp Factor V Activity POC ABG pH POC ABG pCO2 POC ABG pO2 ABG pO2 ABG HCO3 ABG Base Excess ABG Hemoglobin Oxyhemoglobin Sodium Potassium Chloride Carbon Dioxide BUN Creatinine Glucose POC Glucose 163 H Lactic Acid Calcium Phosphorus Magnesium Direct Bilirubin AST ALT Alkaline Phosphatase Lactate Dehydrogenase Troponin T C-Reactive Protein Total Protein Albumin Prealbumin Triglycerides Cholesterol LDL Cholesterol Direct HDL Cholesterol Urine pH Urine WBC (Auto) Urine Creatinine 54.8 H Urine Total Protein Fluid Total Protein Vancomycin Trough 2.3 L Rheumatoid Factor Complement C4 Miscellaneous Test Crossmatch 09/21/16 09/21/16 09/22/16 16:51 23:17 06:27 WBC RBC Hgb Hct MCV MCH MCHC RDW Plt Count Lymph % (Auto) [place] % (Auto) Lymph # [place] # Baso # Seg Neutrophils % Seg Neuts % (Manual) Lymphocytes % (Manual) Monocytes % (Manual) Eosinophils % (Manual) Basophils % (Manual) Nucleated RBC % Seg Neutrophils # Seg Neutrophils # Man Lymphocytes # (Manual) Monocytes # (Manual) Eosinophils # (Manual) PT INR Fibrinogen dRVVT Confirm Interp Factor V Activity POC ABG pH POC ABG pCO2 POC ABG pO2 ABG pO2 ABG HCO3 ABG Base Excess ABG Hemoglobin Oxyhemoglobin Sodium Potassium Chloride Carbon Dioxide BUN Creatinine Glucose POC Glucose 206 H 114 H 115 H Lactic Acid Calcium Phosphorus Magnesium Direct Bilirubin AST ALT Alkaline Phosphatase Lactate Dehydrogenase Troponin T C-Reactive Protein Total Protein Albumin Prealbumin Triglycerides Cholesterol LDL Cholesterol Direct HDL Cholesterol Urine pH Urine WBC (Auto) Urine Creatinine Urine Total Protein Fluid Total Protein Vancomycin Trough Rheumatoid Factor Complement C4 Miscellaneous Test Crossmatch 09/22/16 09/22/16 09/22/16 07:50 07:50 12:00 WBC 17.8 H RBC 3.04 L Hgb 8.0 L Hct 24.7 L MCV MCH 26 L MCHC RDW 21.6 H Plt Count Lymph % (Auto) [place] % (Auto) Lymph # [place] # Baso # Seg Neutrophils % Seg Neuts % (Manual) Lymphocytes % (Manual) Monocytes % (Manual) Eosinophils % (Manual) Basophils % (Manual) Nucleated RBC % Seg Neutrophils # Seg Neutrophils # Man Lymphocytes # (Manual) Monocytes # (Manual) Eosinophils # (Manual) PT INR Fibrinogen dRVVT Confirm Interp Factor V Activity POC ABG pH POC ABG pCO2 POC ABG pO2 ABG pO2 ABG HCO3 ABG Base Excess ABG Hemoglobin Oxyhemoglobin Sodium 150 H Potassium Chloride 118.2 H Carbon Dioxide 14 L BUN 111 H Creatinine 3.7 H Glucose 157 H POC Glucose 183 H Lactic Acid Calcium Phosphorus Magnesium Direct Bilirubin AST ALT Alkaline Phosphatase Lactate Dehydrogenase Troponin T C-Reactive Protein Total Protein Albumin Prealbumin Triglycerides Cholesterol LDL Cholesterol Direct HDL Cholesterol Urine pH Urine WBC (Auto) Urine Creatinine Urine Total Protein Fluid Total Protein Vancomycin Trough Rheumatoid Factor Complement C4 Miscellaneous Test Crossmatch 09/22/16 09/22/16 09/23/16 17:29 23:10 05:00 WBC 19.2 H RBC 3.13 L Hgb 8.0 L Hct 25.2 L MCV MCH 26 L MCHC RDW 22.1 H Plt Count Lymph % (Auto) [place] % (Auto) Lymph # [place] # Baso # Seg Neutrophils % Seg Neuts % (Manual) 92.0 H Lymphocytes % (Manual) 3.0 L Monocytes % (Manual) Eosinophils % (Manual) Basophils % (Manual) Nucleated RBC % Seg Neutrophils # Seg Neutrophils # Man 17.7 H Lymphocytes # (Manual) 0.6 L Monocytes # (Manual) Eosinophils # (Manual) PT INR Fibrinogen dRVVT Confirm Interp Factor V Activity POC ABG pH POC ABG pCO2 POC ABG pO2 ABG pO2 ABG HCO3 ABG Base Excess ABG Hemoglobin Oxyhemoglobin Sodium Potassium Chloride Carbon Dioxide BUN Creatinine Glucose POC Glucose 197 H 169 H Lactic Acid Calcium Phosphorus Magnesium Direct Bilirubin AST ALT Alkaline Phosphatase Lactate Dehydrogenase Troponin T C-Reactive Protein Total Protein Albumin Prealbumin Triglycerides Cholesterol LDL Cholesterol Direct HDL Cholesterol Urine pH Urine WBC (Auto) Urine Creatinine Urine Total Protein Fluid Total Protein Vancomycin Trough Rheumatoid Factor Complement C4 Miscellaneous Test Crossmatch 09/23/16 09/23/16 09/23/16 05:00 05:00 05:10 WBC RBC Hgb Hct MCV MCH MCHC RDW Plt Count Lymph % (Auto) [place] % (Auto) Lymph # [place] # Baso # Seg Neutrophils % Seg Neuts % (Manual) Lymphocytes % (Manual) Monocytes % (Manual) Eosinophils % (Manual) Basophils % (Manual) Nucleated RBC % Seg Neutrophils # Seg Neutrophils # Man Lymphocytes # (Manual) Monocytes # (Manual) Eosinophils # (Manual) PT INR Fibrinogen dRVVT Confirm Interp Factor V Activity POC ABG pH POC ABG pCO2 POC ABG pO2 ABG pO2 ABG HCO3 ABG Base Excess ABG Hemoglobin Oxyhemoglobin Sodium 147 H Potassium 3.2 L Chloride 115.7 H Carbon Dioxide 13 L BUN 111 H Creatinine 3.8 H Glucose 194 H POC Glucose 188 H Lactic Acid Calcium 7.3 L D Phosphorus Magnesium Direct Bilirubin AST ALT Alkaline Phosphatase Lactate Dehydrogenase Troponin T C-Reactive Protein 3.20 H Total Protein Albumin Prealbumin Triglycerides Cholesterol LDL Cholesterol Direct HDL Cholesterol Urine pH Urine WBC (Auto) Urine Creatinine Urine Total Protein Fluid Total Protein Vancomycin Trough Rheumatoid Factor Complement C4 Miscellaneous Test Crossmatch 09/23/16 09/23/16 09/23/16 11:37 12:29 18:01 WBC RBC Hgb Hct MCV MCH MCHC RDW Plt Count Lymph % (Auto) [place] % (Auto) Lymph # [place] # Baso # Seg Neutrophils % Seg Neuts % (Manual) Lymphocytes % (Manual) Monocytes % (Manual) Eosinophils % (Manual) Basophils % (Manual) Nucleated RBC % Seg Neutrophils # Seg Neutrophils # Man Lymphocytes # (Manual) Monocytes # (Manual) Eosinophils # (Manual) PT INR Fibrinogen dRVVT Confirm Interp Factor V Activity POC ABG pH POC ABG pCO2 18.9 L POC ABG pO2 143 H ABG pO2 ABG HCO3 ABG Base Excess ABG Hemoglobin Oxyhemoglobin Sodium Potassium Chloride Carbon Dioxide BUN Creatinine Glucose POC Glucose 153 H 108 H Lactic Acid Calcium Phosphorus Magnesium Direct Bilirubin AST ALT Alkaline Phosphatase Lactate Dehydrogenase Troponin T C-Reactive Protein Total Protein Albumin Prealbumin Triglycerides Cholesterol LDL Cholesterol Direct HDL Cholesterol Urine pH Urine WBC (Auto) Urine Creatinine Urine Total Protein Fluid Total Protein Vancomycin Trough Rheumatoid Factor Complement C4 Miscellaneous Test Crossmatch 09/23/16 09/23/16 09/24/16 21:19 23:43 05:16 WBC RBC Hgb Hct MCV MCH MCHC RDW Plt Count Lymph % (Auto) [place] % (Auto) Lymph # [place] # Baso # Seg Neutrophils % Seg Neuts % (Manual) Lymphocytes % (Manual) Monocytes % (Manual) Eosinophils % (Manual) Basophils % (Manual) Nucleated RBC % Seg Neutrophils # Seg Neutrophils # Man Lymphocytes # (Manual) Monocytes # (Manual) Eosinophils # (Manual) PT INR Fibrinogen dRVVT Confirm Interp Factor V Activity POC ABG pH POC ABG pCO2 17.3 L POC ABG pO2 112 H ABG pO2 ABG HCO3 ABG Base Excess ABG Hemoglobin Oxyhemoglobin Sodium Potassium Chloride Carbon Dioxide BUN Creatinine Glucose POC Glucose 143 H 164 H Lactic Acid Calcium Phosphorus Magnesium Direct Bilirubin AST ALT Alkaline Phosphatase Lactate Dehydrogenase Troponin T C-Reactive Protein Total Protein Albumin Prealbumin Triglycerides Cholesterol LDL Cholesterol Direct HDL Cholesterol Urine pH Urine WBC (Auto) Urine Creatinine Urine Total Protein Fluid Total Protein Vancomycin Trough Rheumatoid Factor Complement C4 Miscellaneous Test Crossmatch 09/24/16 09/24/16 09/24/16 05:21 11:58 17:06 WBC RBC Hgb Hct MCV MCH MCHC RDW Plt Count Lymph % (Auto) [place] % (Auto) Lymph # [place] # Baso # Seg Neutrophils % Seg Neuts % (Manual) Lymphocytes % (Manual) Monocytes % (Manual) Eosinophils % (Manual) Basophils % (Manual) Nucleated RBC % Seg Neutrophils # Seg Neutrophils # Man Lymphocytes # (Manual) Monocytes # (Manual) Eosinophils # (Manual) PT INR Fibrinogen dRVVT Confirm Interp Factor V Activity POC ABG pH POC ABG pCO2 POC ABG pO2 ABG pO2 ABG HCO3 ABG Base Excess ABG Hemoglobin Oxyhemoglobin Sodium Potassium Chloride Carbon Dioxide 10 L BUN 103 H Creatinine 4.3 H Glucose 163 H POC Glucose 173 H 167 H Lactic Acid Calcium 6.5 L Phosphorus Magnesium Direct Bilirubin AST ALT Alkaline Phosphatase Lactate Dehydrogenase Troponin T C-Reactive Protein Total Protein Albumin Prealbumin Triglycerides Cholesterol LDL Cholesterol Direct HDL Cholesterol Urine pH Urine WBC (Auto) Urine Creatinine Urine Total Protein Fluid Total Protein Vancomycin Trough Rheumatoid Factor Complement C4 Miscellaneous Test Crossmatch 09/24/16 09/24/16 09/24/16 20:15 21:02 23:48 WBC RBC Hgb Hct MCV MCH MCHC RDW Plt Count Lymph % (Auto) [place] % (Auto) Lymph # [place] # Baso # Seg Neutrophils % Seg Neuts % (Manual) Lymphocytes % (Manual) Monocytes % (Manual) Eosinophils % (Manual) Basophils % (Manual) Nucleated RBC % Seg Neutrophils # Seg Neutrophils # Man Lymphocytes # (Manual) Monocytes # (Manual) Eosinophils # (Manual) PT INR Fibrinogen dRVVT Confirm Interp Factor V Activity POC ABG pH 7.288 L POC ABG pCO2 30.2 L 21.5 L POC ABG pO2 32 L 39 L ABG pO2 ABG HCO3 ABG Base Excess ABG Hemoglobin Oxyhemoglobin Sodium Potassium Chloride Carbon Dioxide BUN Creatinine Glucose POC Glucose 109 H Lactic Acid Calcium Phosphorus Magnesium Direct Bilirubin AST ALT Alkaline Phosphatase Lactate Dehydrogenase Troponin T C-Reactive Protein Total Protein Albumin Prealbumin Triglycerides Cholesterol LDL Cholesterol Direct HDL Cholesterol Urine pH Urine WBC (Auto) Urine Creatinine Urine Total Protein Fluid Total Protein Vancomycin Trough Rheumatoid Factor Complement C4 Miscellaneous Test Crossmatch 09/25/16 09/25/16 09/25/16 04:20 04:20 04:20 WBC RBC 2.58 L Hgb 7.0 L Hct 21.0 L MCV MCH 27 L MCHC RDW 23.8 H Plt Count Lymph % (Auto) [place] % (Auto) Lymph # [place] # Baso # Seg Neutrophils % Seg Neuts % (Manual) Lymphocytes % (Manual) 12.0 L Monocytes % (Manual) Eosinophils % (Manual) 7.0 H Basophils % (Manual) 2.0 H Nucleated RBC % Seg Neutrophils # Seg Neutrophils # Man Lymphocytes # (Manual) 0.9 L Monocytes # (Manual) Eosinophils # (Manual) 0.5 H PT INR Fibrinogen dRVVT Confirm Interp Factor V Activity POC ABG pH POC ABG pCO2 POC ABG pO2 ABG pO2 ABG HCO3 ABG Base Excess ABG Hemoglobin Oxyhemoglobin Sodium Potassium Chloride Carbon Dioxide 15 L BUN 72 H Creatinine 3.8 H Glucose POC Glucose Lactic Acid Calcium 6.0 L Phosphorus 4.60 H Magnesium 1.60 L Direct Bilirubin AST ALT Alkaline Phosphatase Lactate Dehydrogenase Troponin T C-Reactive Protein Total Protein Albumin Prealbumin Triglycerides Cholesterol LDL Cholesterol Direct HDL Cholesterol Urine pH Urine WBC (Auto) Urine Creatinine Urine Total Protein Fluid Total Protein Vancomycin Trough Rheumatoid Factor Complement C4 Miscellaneous Test Crossmatch 09/25/16 09/25/16 09/25/16 04:57 08:02 10:30 WBC RBC Hgb Hct MCV MCH MCHC RDW Plt Count Lymph % (Auto) [place] % (Auto) Lymph # [place] # Baso # Seg Neutrophils % Seg Neuts % (Manual) Lymphocytes % (Manual) Monocytes % (Manual) Eosinophils % (Manual) Basophils % (Manual) Nucleated RBC % Seg Neutrophils # Seg Neutrophils # Man Lymphocytes # (Manual) Monocytes # (Manual) Eosinophils # (Manual) PT INR Fibrinogen dRVVT Confirm Interp Factor V Activity POC ABG pH POC ABG pCO2 24.7 L POC ABG pO2 152 H ABG pO2 ABG HCO3 ABG Base Excess ABG Hemoglobin Oxyhemoglobin Sodium Potassium Chloride Carbon Dioxide BUN Creatinine Glucose POC Glucose 113 H Lactic Acid Calcium Phosphorus Magnesium Direct Bilirubin AST ALT Alkaline Phosphatase Lactate Dehydrogenase Troponin T C-Reactive Protein Total Protein Albumin Prealbumin Triglycerides Cholesterol LDL Cholesterol Direct HDL Cholesterol Urine pH Urine WBC (Auto) Urine Creatinine Urine Total Protein Fluid Total Protein Vancomycin Trough Rheumatoid Factor Complement C4 Miscellaneous Test Crossmatch See Detail 09/25/16 09/25/16 09/25/16 12:05 17:44 23:47 WBC RBC Hgb Hct MCV MCH MCHC RDW Plt Count Lymph % (Auto) [place] % (Auto) Lymph # [place] # Baso # Seg Neutrophils % Seg Neuts % (Manual) Lymphocytes % (Manual) Monocytes % (Manual) Eosinophils % (Manual) Basophils % (Manual) Nucleated RBC % Seg Neutrophils # Seg Neutrophils # Man Lymphocytes # (Manual) Monocytes # (Manual) Eosinophils # (Manual) PT INR Fibrinogen dRVVT Confirm Interp Factor V Activity POC ABG pH POC ABG pCO2 POC ABG pO2 ABG pO2 ABG HCO3 ABG Base Excess ABG Hemoglobin Oxyhemoglobin Sodium Potassium Chloride Carbon Dioxide BUN Creatinine Glucose POC Glucose 117 H 119 H 150 H Lactic Acid Calcium Phosphorus Magnesium Direct Bilirubin AST ALT Alkaline Phosphatase Lactate Dehydrogenase Troponin T C-Reactive Protein Total Protein Albumin Prealbumin Triglycerides Cholesterol LDL Cholesterol Direct HDL Cholesterol Urine pH Urine WBC (Auto) Urine Creatinine Urine Total Protein Fluid Total Protein Vancomycin Trough Rheumatoid Factor Complement C4 Miscellaneous Test Crossmatch 09/26/16 09/26/16 09/26/16 04:25 04:25 04:25 WBC RBC 2.65 L Hgb 7.4 L Hct 21.6 L MCV MCH MCHC RDW 22.5 H Plt Count Lymph % (Auto) [place] % (Auto) Lymph # [place] # Baso # Seg Neutrophils % Seg Neuts % (Manual) Lymphocytes % (Manual) 6.0 L Monocytes % (Manual) Eosinophils % (Manual) 11.0 H Basophils % (Manual) Nucleated RBC % Seg Neutrophils # Seg Neutrophils # Man Lymphocytes # (Manual) 0.4 L Monocytes # (Manual) Eosinophils # (Manual) 0.6 H PT INR Fibrinogen dRVVT Confirm Interp Factor V Activity POC ABG pH POC ABG pCO2 POC ABG pO2 ABG pO2 ABG HCO3 ABG Base Excess ABG Hemoglobin Oxyhemoglobin Sodium Potassium Chloride 97.0 L Carbon Dioxide 19 L BUN 43 H Creatinine 2.6 H Glucose 130 H POC Glucose Lactic Acid 4.40 H* Calcium 6.7 L Phosphorus Magnesium Direct Bilirubin AST ALT Alkaline Phosphatase Lactate Dehydrogenase Troponin T C-Reactive Protein Total Protein Albumin Prealbumin Triglycerides Cholesterol LDL Cholesterol Direct HDL Cholesterol Urine pH Urine WBC (Auto) Urine Creatinine Urine Total Protein Fluid Total Protein Vancomycin Trough Rheumatoid Factor Complement C4 Miscellaneous Test Crossmatch 09/26/16 09/26/16 09/26/16 05:20 11:44 12:12 WBC RBC Hgb Hct MCV MCH MCHC RDW Plt Count Lymph % (Auto) [place] % (Auto) Lymph # [place] # Baso # Seg Neutrophils % Seg Neuts % (Manual) Lymphocytes % (Manual) Monocytes % (Manual) Eosinophils % (Manual) Basophils % (Manual) Nucleated RBC % Seg Neutrophils # Seg Neutrophils # Man Lymphocytes # (Manual) Monocytes # (Manual) Eosinophils # (Manual) PT INR Fibrinogen dRVVT Confirm Interp Factor V Activity POC ABG pH POC ABG pCO2 27.0 L POC ABG pO2 69 L ABG pO2 ABG HCO3 ABG Base Excess ABG Hemoglobin Oxyhemoglobin Sodium Potassium Chloride Carbon Dioxide BUN Creatinine Glucose POC Glucose 121 H 128 H Lactic Acid Calcium Phosphorus Magnesium Direct Bilirubin AST ALT Alkaline Phosphatase Lactate Dehydrogenase Troponin T C-Reactive Protein Total Protein Albumin Prealbumin Triglycerides Cholesterol LDL Cholesterol Direct HDL Cholesterol Urine pH Urine WBC (Auto) Urine Creatinine Urine Total Protein Fluid Total Protein Vancomycin Trough Rheumatoid Factor Complement C4 Miscellaneous Test Crossmatch 09/26/16 09/26/16 09/27/16 18:31 23:40 08:20 WBC RBC Hgb Hct MCV MCH MCHC RDW Plt Count Lymph % (Auto) [place] % (Auto) Lymph # [place] # Baso # Seg Neutrophils % Seg Neuts % (Manual) Lymphocytes % (Manual) Monocytes % (Manual) Eosinophils % (Manual) Basophils % (Manual) Nucleated RBC % Seg Neutrophils # Seg Neutrophils # Man Lymphocytes # (Manual) Monocytes # (Manual) Eosinophils # (Manual) PT INR Fibrinogen dRVVT Confirm Interp Factor V Activity POC ABG pH POC ABG pCO2 POC ABG pO2 ABG pO2 ABG HCO3 ABG Base Excess ABG Hemoglobin Oxyhemoglobin Sodium Potassium Chloride Carbon Dioxide BUN Creatinine Glucose POC Glucose 120 H 133 H Lactic Acid 4.10 H* Calcium Phosphorus Magnesium Direct Bilirubin AST ALT Alkaline Phosphatase Lactate Dehydrogenase Troponin T C-Reactive Protein Total Protein Albumin Prealbumin Triglycerides Cholesterol LDL Cholesterol Direct HDL Cholesterol Urine pH Urine WBC (Auto) Urine Creatinine Urine Total Protein Fluid Total Protein Vancomycin Trough Rheumatoid Factor Complement C4 Miscellaneous Test Crossmatch 09/27/16 09/27/16 09/27/16 11:23 15:00 18:15 WBC RBC Hgb Hct MCV MCH MCHC RDW Plt Count Lymph % (Auto) [place] % (Auto) Lymph # [place] # Baso # Seg Neutrophils % Seg Neuts % (Manual) Lymphocytes % (Manual) Monocytes % (Manual) Eosinophils % (Manual) Basophils % (Manual) Nucleated RBC % Seg Neutrophils # Seg Neutrophils # Man Lymphocytes # (Manual) Monocytes # (Manual) Eosinophils # (Manual) PT INR Fibrinogen dRVVT Confirm Interp Factor V Activity POC ABG pH 7.459 H POC ABG pCO2 27.1 L POC ABG pO2 140 H ABG pO2 ABG HCO3 ABG Base Excess ABG Hemoglobin Oxyhemoglobin Sodium Potassium Chloride Carbon Dioxide BUN Creatinine Glucose POC Glucose 114 H 127 H Lactic Acid Calcium Phosphorus Magnesium Direct Bilirubin AST ALT Alkaline Phosphatase Lactate Dehydrogenase Troponin T C-Reactive Protein Total Protein Albumin Prealbumin Triglycerides Cholesterol LDL Cholesterol Direct HDL Cholesterol Urine pH Urine WBC (Auto) Urine Creatinine Urine Total Protein Fluid Total Protein Vancomycin Trough Rheumatoid Factor Complement C4 Miscellaneous Test Crossmatch 09/27/16 09/27/16 09/28/16 Unknown Unknown 03:45 WBC RBC 2.49 L Hgb 6.8 L Hct 20.7 L MCV MCH 27 L MCHC RDW 22.1 H Plt Count Lymph % (Auto) [place] % (Auto) Lymph # [place] # Baso # Seg Neutrophils % Seg Neuts % (Manual) 32.0 L Lymphocytes % (Manual) 12.0 L Monocytes % (Manual) 11.0 H Eosinophils % (Manual) 10.0 H Basophils % (Manual) Nucleated RBC % Seg Neutrophils # Seg Neutrophils # Man Lymphocytes # (Manual) 1.0 L Monocytes # (Manual) 0.9 H Eosinophils # (Manual) 0.8 H PT INR Fibrinogen dRVVT Confirm Interp Factor V Activity POC ABG pH POC ABG pCO2 POC ABG pO2 ABG pO2 ABG HCO3 ABG Base Excess ABG Hemoglobin Oxyhemoglobin Sodium 135 L 135 L Potassium 3.5 L Chloride 93.6 L 94.4 L Carbon Dioxide 17 L 21 L BUN 45 H 28 H Creatinine 3.3 H 2.5 H Glucose 106 H POC Glucose Lactic Acid Calcium 7.3 L 7.1 L Phosphorus Magnesium Direct Bilirubin AST ALT Alkaline Phosphatase Lactate Dehydrogenase Troponin T C-Reactive Protein Total Protein Albumin Prealbumin Triglycerides Cholesterol LDL Cholesterol Direct HDL Cholesterol Urine pH Urine WBC (Auto) Urine Creatinine Urine Total Protein Fluid Total Protein Vancomycin Trough Rheumatoid Factor Complement C4 Miscellaneous Test Crossmatch 09/28/16 09/28/16 09/28/16 03:45 07:25 11:58 WBC 13.3 H RBC 3.01 L Hgb 8.4 L Hct 25.0 L MCV MCH MCHC RDW 20.5 H Plt Count 128 L Lymph % (Auto) [place] % (Auto) Lymph # [place] # Baso # Seg Neutrophils % Seg Neuts % (Manual) Lymphocytes % (Manual) 7.0 L Monocytes % (Manual) Eosinophils % (Manual) 6.0 H Basophils % (Manual) Nucleated RBC % Seg Neutrophils # Seg Neutrophils # Man Lymphocytes # (Manual) 0.9 L Monocytes # (Manual) Eosinophils # (Manual) 0.8 H PT INR Fibrinogen dRVVT Confirm Interp Factor V Activity POC ABG pH POC ABG pCO2 POC ABG pO2 ABG pO2 ABG HCO3 ABG Base Excess ABG Hemoglobin Oxyhemoglobin Sodium Potassium Chloride Carbon Dioxide BUN Creatinine Glucose POC Glucose 121 H Lactic Acid 4.50 H* Calcium Phosphorus Magnesium Direct Bilirubin AST ALT Alkaline Phosphatase Lactate Dehydrogenase Troponin T C-Reactive Protein Total Protein Albumin Prealbumin Triglycerides Cholesterol LDL Cholesterol Direct HDL Cholesterol Urine pH Urine WBC (Auto) Urine Creatinine Urine Total Protein Fluid Total Protein Vancomycin Trough Rheumatoid Factor Complement C4 Miscellaneous Test Crossmatch 09/29/16 09/29/16 09/29/16 06:45 06:45 06:45 WBC 14.9 H RBC 2.74 L Hgb 7.6 L Hct 23.2 L MCV MCH MCHC RDW 20.5 H Plt Count 81 L Lymph % (Auto) [place] % (Auto) Lymph # [place] # Baso # Seg Neutrophils % Seg Neuts % (Manual) 81.0 H Lymphocytes % (Manual) 4.0 L Monocytes % (Manual) Eosinophils % (Manual) Basophils % (Manual) Nucleated RBC % Seg Neutrophils # Seg Neutrophils # Man 12.1 H Lymphocytes # (Manual) 0.6 L Monocytes # (Manual) Eosinophils # (Manual) PT INR Fibrinogen dRVVT Confirm Interp Factor V Activity POC ABG pH POC ABG pCO2 POC ABG pO2 ABG pO2 ABG HCO3 ABG Base Excess ABG Hemoglobin Oxyhemoglobin Sodium 133 L Potassium 3.4 L Chloride 92.5 L Carbon Dioxide 21 L BUN 33 H Creatinine 3.0 H Glucose POC Glucose Lactic Acid Calcium 6.6 L Phosphorus Magnesium 1.40 L Direct Bilirubin 0.9 H AST ALT Alkaline Phosphatase Lactate Dehydrogenase Troponin T C-Reactive Protein Total Protein 4.3 L Albumin 1.3 L Prealbumin Triglycerides Cholesterol LDL Cholesterol Direct HDL Cholesterol Urine pH Urine WBC (Auto) Urine Creatinine Urine Total Protein Fluid Total Protein Vancomycin Trough Rheumatoid Factor Complement C4 Miscellaneous Test Crossmatch 09/29/16 09/29/16 09/30/16 17:52 20:12 00:07 WBC RBC Hgb Hct MCV MCH MCHC RDW Plt Count Lymph % (Auto) [place] % (Auto) Lymph # [place] # Baso # Seg Neutrophils % Seg Neuts % (Manual) Lymphocytes % (Manual) Monocytes % (Manual) Eosinophils % (Manual) Basophils % (Manual) Nucleated RBC % Seg Neutrophils # Seg Neutrophils # Man Lymphocytes # (Manual) Monocytes # (Manual) Eosinophils # (Manual) PT INR Fibrinogen dRVVT Confirm Interp Factor V Activity POC ABG pH POC ABG pCO2 POC ABG pO2 ABG pO2 ABG HCO3 ABG Base Excess ABG Hemoglobin Oxyhemoglobin Sodium Potassium Chloride Carbon Dioxide BUN Creatinine Glucose POC Glucose 50 L 51 L Lactic Acid Calcium Phosphorus Magnesium Direct Bilirubin AST ALT Alkaline Phosphatase Lactate Dehydrogenase Troponin T 0.204 H* C-Reactive Protein Total Protein Albumin Prealbumin Triglycerides Cholesterol 31 L LDL Cholesterol Direct 4 L HDL Cholesterol 3 L Urine pH Urine WBC (Auto) Urine Creatinine Urine Total Protein Fluid Total Protein Vancomycin Trough Rheumatoid Factor Complement C4 Miscellaneous Test Crossmatch 09/30/16 09/30/16 09/30/16 01:30 05:15 06:10 WBC RBC Hgb Hct MCV MCH MCHC RDW Plt Count Lymph % (Auto) [place] % (Auto) Lymph # [place] # Baso # Seg Neutrophils % Seg Neuts % (Manual) Lymphocytes % (Manual) Monocytes % (Manual) Eosinophils % (Manual) Basophils % (Manual) Nucleated RBC % Seg Neutrophils # Seg Neutrophils # Man Lymphocytes # (Manual) Monocytes # (Manual) Eosinophils # (Manual) PT INR Fibrinogen dRVVT Confirm Interp Factor V Activity POC ABG pH POC ABG pCO2 POC ABG pO2 ABG pO2 ABG HCO3 ABG Base Excess ABG Hemoglobin Oxyhemoglobin Sodium 133 L Potassium 3.2 L Chloride 93.2 L Carbon Dioxide 19 L BUN 36 H Creatinine 3.2 H Glucose 104 H POC Glucose 167 H 146 H Lactic Acid Calcium 6.4 L Phosphorus Magnesium 1.60 L Direct Bilirubin AST ALT Alkaline Phosphatase Lactate Dehydrogenase Troponin T C-Reactive Protein Total Protein Albumin Prealbumin Triglycerides Cholesterol LDL Cholesterol Direct HDL Cholesterol Urine pH Urine WBC (Auto) Urine Creatinine Urine Total Protein Fluid Total Protein Vancomycin Trough Rheumatoid Factor Complement C4 Miscellaneous Test Crossmatch 09/30/16 09/30/16 09/30/16 11:26 13:39 18:38 WBC RBC Hgb Hct MCV MCH MCHC RDW Plt Count Lymph % (Auto) [place] % (Auto) Lymph # [place] # Baso # Seg Neutrophils % Seg Neuts % (Manual) Lymphocytes % (Manual) Monocytes % (Manual) Eosinophils % (Manual) Basophils % (Manual) Nucleated RBC % Seg Neutrophils # Seg Neutrophils # Man Lymphocytes # (Manual) Monocytes # (Manual) Eosinophils # (Manual) PT INR Fibrinogen dRVVT Confirm Interp Factor V Activity POC ABG pH 7.479 H POC ABG pCO2 29.8 L POC ABG pO2 117 H ABG pO2 ABG HCO3 ABG Base Excess ABG Hemoglobin Oxyhemoglobin Sodium Potassium Chloride Carbon Dioxide BUN Creatinine Glucose POC Glucose 140 H 122 H Lactic Acid Calcium Phosphorus Magnesium Direct Bilirubin AST ALT Alkaline Phosphatase Lactate Dehydrogenase Troponin T C-Reactive Protein Total Protein Albumin Prealbumin Triglycerides Cholesterol LDL Cholesterol Direct HDL Cholesterol Urine pH Urine WBC (Auto) Urine Creatinine Urine Total Protein Fluid Total Protein Vancomycin Trough Rheumatoid Factor Complement C4 Miscellaneous Test Crossmatch 10/01/16 10/01/16 10/01/16 06:00 06:00 12:37 WBC 12.6 H RBC 2.75 L Hgb 7.3 L Hct 23.3 L MCV MCH 27 L MCHC RDW 20.6 H Plt Count 72 L Lymph % (Auto) [place] % (Auto) Lymph # [place] # Baso # Seg Neutrophils % Seg Neuts % (Manual) 31.0 L Lymphocytes % (Manual) 8.0 L Monocytes % (Manual) Eosinophils % (Manual) Basophils % (Manual) Nucleated RBC % 3.0 H Seg Neutrophils # Seg Neutrophils # Man Lymphocytes # (Manual) 1.0 L Monocytes # (Manual) Eosinophils # (Manual) PT INR Fibrinogen dRVVT Confirm Interp Factor V Activity POC ABG pH POC ABG pCO2 POC ABG pO2 ABG pO2 ABG HCO3 ABG Base Excess ABG Hemoglobin Oxyhemoglobin Sodium 127 L Potassium Chloride 86.8 L Carbon Dioxide 20 L BUN 42 H Creatinine 3.5 H Glucose POC Glucose 65 L Lactic Acid Calcium 7.0 L Phosphorus Magnesium Direct Bilirubin AST ALT Alkaline Phosphatase Lactate Dehydrogenase Troponin T C-Reactive Protein Total Protein Albumin Prealbumin Triglycerides Cholesterol LDL Cholesterol Direct HDL Cholesterol Urine pH Urine WBC (Auto) Urine Creatinine Urine Total Protein Fluid Total Protein Vancomycin Trough Rheumatoid Factor Complement C4 Miscellaneous Test Crossmatch 10/01/16 10/01/16 10/02/16 17:39 23:32 00:59 WBC RBC Hgb Hct MCV MCH MCHC RDW Plt Count Lymph % (Auto) [place] % (Auto) Lymph # [place] # Baso # Seg Neutrophils % Seg Neuts % (Manual) Lymphocytes % (Manual) Monocytes % (Manual) Eosinophils % (Manual) Basophils % (Manual) Nucleated RBC % Seg Neutrophils # Seg Neutrophils # Man Lymphocytes # (Manual) Monocytes # (Manual) Eosinophils # (Manual) PT INR Fibrinogen dRVVT Confirm Interp Factor V Activity POC ABG pH POC ABG pCO2 POC ABG pO2 ABG pO2 ABG HCO3 ABG Base Excess ABG Hemoglobin Oxyhemoglobin Sodium Potassium Chloride Carbon Dioxide BUN Creatinine Glucose POC Glucose 107 H 52 L 145 H Lactic Acid Calcium Phosphorus Magnesium Direct Bilirubin AST ALT Alkaline Phosphatase Lactate Dehydrogenase Troponin T C-Reactive Protein Total Protein Albumin Prealbumin Triglycerides Cholesterol LDL Cholesterol Direct HDL Cholesterol Urine pH Urine WBC (Auto) Urine Creatinine Urine Total Protein Fluid Total Protein Vancomycin Trough Rheumatoid Factor Complement C4 Miscellaneous Test Crossmatch 10/02/16 10/02/16 10/02/16 10:30 10:50 10:50 WBC 14.7 H RBC 2.76 L Hgb 7.4 L Hct 23.6 L MCV MCH 27 L MCHC RDW 20.2 H Plt Count 79 L Lymph % (Auto) [place] % (Auto) Lymph # [place] # Baso # Seg Neutrophils % Seg Neuts % (Manual) 86.0 H Lymphocytes % (Manual) 6.0 L Monocytes % (Manual) Eosinophils % (Manual) Basophils % (Manual) Nucleated RBC % Seg Neutrophils # Seg Neutrophils # Man 12.6 H Lymphocytes # (Manual) 0.9 L Monocytes # (Manual) Eosinophils # (Manual) PT INR Fibrinogen dRVVT Confirm Interp Factor V Activity POC ABG pH 7.486 H POC ABG pCO2 30.1 L POC ABG pO2 108 H ABG pO2 ABG HCO3 ABG Base Excess ABG Hemoglobin Oxyhemoglobin Sodium 131 L Potassium 3.4 L Chloride 89.9 L Carbon Dioxide BUN 26 H Creatinine 2.6 H Glucose POC Glucose Lactic Acid Calcium 7.0 L Phosphorus Magnesium Direct Bilirubin AST ALT Alkaline Phosphatase Lactate Dehydrogenase Troponin T C-Reactive Protein Total Protein Albumin Prealbumin Triglycerides Cholesterol LDL Cholesterol Direct HDL Cholesterol Urine pH Urine WBC (Auto) Urine Creatinine Urine Total Protein Fluid Total Protein Vancomycin Trough Rheumatoid Factor Complement C4 Miscellaneous Test Crossmatch 10/02/16 10/03/16 10/03/16 23:45 00:45 05:10 WBC 12.9 H RBC 2.77 L Hgb 7.6 L Hct 23.7 L MCV MCH 27 L MCHC RDW 19.7 H Plt Count 89 L Lymph % (Auto) [place] % (Auto) Lymph # [place] # Baso # Seg Neutrophils % Seg Neuts % (Manual) Lymphocytes % (Manual) 8.0 L Monocytes % (Manual) Eosinophils % (Manual) Basophils % (Manual) Nucleated RBC % Seg Neutrophils # 11.9 H Seg Neutrophils # Man Lymphocytes # (Manual) 1.0 L Monocytes # (Manual) Eosinophils # (Manual) PT INR Fibrinogen dRVVT Confirm Interp Factor V Activity POC ABG pH POC ABG pCO2 POC ABG pO2 ABG pO2 ABG HCO3 ABG Base Excess ABG Hemoglobin Oxyhemoglobin Sodium Potassium Chloride Carbon Dioxide BUN Creatinine Glucose POC Glucose 55 L 199 H Lactic Acid Calcium Phosphorus Magnesium Direct Bilirubin AST ALT Alkaline Phosphatase Lactate Dehydrogenase Troponin T C-Reactive Protein Total Protein Albumin Prealbumin Triglycerides Cholesterol LDL Cholesterol Direct HDL Cholesterol Urine pH Urine WBC (Auto) Urine Creatinine Urine Total Protein Fluid Total Protein Vancomycin Trough Rheumatoid Factor Complement C4 Miscellaneous Test Crossmatch 10/03/16 10/03/16 10/03/16 05:10 12:14 13:18 WBC RBC Hgb Hct MCV MCH MCHC RDW Plt Count Lymph % (Auto) [place] % (Auto) Lymph # [place] # Baso # Seg Neutrophils % Seg Neuts % (Manual) Lymphocytes % (Manual) Monocytes % (Manual) Eosinophils % (Manual) Basophils % (Manual) Nucleated RBC % Seg Neutrophils # Seg Neutrophils # Man Lymphocytes # (Manual) Monocytes # (Manual) Eosinophils # (Manual) PT INR Fibrinogen dRVVT Confirm Interp Factor V Activity POC ABG pH POC ABG pCO2 POC ABG pO2 ABG pO2 ABG HCO3 ABG Base Excess ABG Hemoglobin Oxyhemoglobin Sodium 129 L Potassium 3.3 L Chloride 88.8 L Carbon Dioxide 20 L BUN 29 H Creatinine 2.8 H Glucose POC Glucose 68 L 127 H Lactic Acid Calcium 7.2 L Phosphorus Magnesium Direct Bilirubin AST ALT Alkaline Phosphatase Lactate Dehydrogenase Troponin T C-Reactive Protein Total Protein Albumin Prealbumin Triglycerides Cholesterol LDL Cholesterol Direct HDL Cholesterol Urine pH Urine WBC (Auto) Urine Creatinine Urine Total Protein Fluid Total Protein Vancomycin Trough Rheumatoid Factor Complement C4 Miscellaneous Test Crossmatch 10/03/16 10/03/16 10/03/16 14:42 18:21 19:09 WBC RBC Hgb Hct MCV MCH MCHC RDW Plt Count Lymph % (Auto) [place] % (Auto) Lymph # [place] # Baso # Seg Neutrophils % Seg Neuts % (Manual) Lymphocytes % (Manual) Monocytes % (Manual) Eosinophils % (Manual) Basophils % (Manual) Nucleated RBC % Seg Neutrophils # Seg Neutrophils # Man Lymphocytes # (Manual) Monocytes # (Manual) Eosinophils # (Manual) PT INR Fibrinogen dRVVT Confirm Interp Factor V Activity POC ABG pH 7.499 H POC ABG pCO2 28.4 L POC ABG pO2 44 L ABG pO2 ABG HCO3 ABG Base Excess ABG Hemoglobin Oxyhemoglobin Sodium Potassium Chloride Carbon Dioxide BUN Creatinine Glucose POC Glucose 64 L 205 H Lactic Acid Calcium Phosphorus Magnesium Direct Bilirubin AST ALT Alkaline Phosphatase Lactate Dehydrogenase Troponin T C-Reactive Protein Total Protein Albumin Prealbumin Triglycerides Cholesterol LDL Cholesterol Direct HDL Cholesterol Urine pH Urine WBC (Auto) Urine Creatinine Urine Total Protein Fluid Total Protein Vancomycin Trough Rheumatoid Factor Complement C4 Miscellaneous Test Crossmatch 10/03/16 10/04/16 10/04/16 23:33 04:18 06:30 WBC RBC 2.54 L Hgb 7.1 L Hct 21.7 L MCV MCH MCHC RDW 19.5 H Plt Count 76 L Lymph % (Auto) [place] % (Auto) Lymph # [place] # Baso # Seg Neutrophils % Seg Neuts % (Manual) 88.0 H Lymphocytes % (Manual) 6.0 L Monocytes % (Manual) Eosinophils % (Manual) Basophils % (Manual) Nucleated RBC % Seg Neutrophils # Seg Neutrophils # Man 8.8 H Lymphocytes # (Manual) 0.6 L Monocytes # (Manual) Eosinophils # (Manual) PT INR Fibrinogen dRVVT Confirm Interp Factor V Activity POC ABG pH 7.461 H POC ABG pCO2 33.6 L POC ABG pO2 211 H ABG pO2 ABG HCO3 ABG Base Excess ABG Hemoglobin Oxyhemoglobin Sodium Potassium Chloride Carbon Dioxide BUN Creatinine Glucose POC Glucose 136 H Lactic Acid Calcium Phosphorus Magnesium Direct Bilirubin AST ALT Alkaline Phosphatase Lactate Dehydrogenase Troponin T C-Reactive Protein Total Protein Albumin Prealbumin Triglycerides Cholesterol LDL Cholesterol Direct HDL Cholesterol Urine pH Urine WBC (Auto) Urine Creatinine Urine Total Protein Fluid Total Protein Vancomycin Trough Rheumatoid Factor Complement C4 Miscellaneous Test Crossmatch 10/04/16 10/04/16 10/04/16 06:30 11:45 17:54 WBC RBC Hgb Hct MCV MCH MCHC RDW Plt Count Lymph % (Auto) [place] % (Auto) Lymph # [place] # Baso # Seg Neutrophils % Seg Neuts % (Manual) Lymphocytes % (Manual) Monocytes % (Manual) Eosinophils % (Manual) Basophils % (Manual) Nucleated RBC % Seg Neutrophils # Seg Neutrophils # Man Lymphocytes # (Manual) Monocytes # (Manual) Eosinophils # (Manual) PT INR Fibrinogen dRVVT Confirm Interp Factor V Activity POC ABG pH POC ABG pCO2 POC ABG pO2 ABG pO2 ABG HCO3 ABG Base Excess ABG Hemoglobin Oxyhemoglobin Sodium 128 L Potassium Chloride 87.4 L Carbon Dioxide 20 L BUN 34 H Creatinine 2.9 H Glucose 127 H POC Glucose 158 H 160 H Lactic Acid Calcium 7.4 L Phosphorus Magnesium Direct Bilirubin AST ALT Alkaline Phosphatase Lactate Dehydrogenase Troponin T C-Reactive Protein Total Protein Albumin Prealbumin Triglycerides Cholesterol LDL Cholesterol Direct HDL Cholesterol Urine pH Urine WBC (Auto) Urine Creatinine Urine Total Protein Fluid Total Protein Vancomycin Trough Rheumatoid Factor Complement C4 Miscellaneous Test Crossmatch 10/04/16 10/05/16 10/05/16 23:25 04:30 05:00 WBC RBC 2.64 L Hgb 7.5 L Hct 22.6 L MCV MCH MCHC RDW 19.3 H Plt Count 80 L Lymph % (Auto) [place] % (Auto) Lymph # [place] # Baso # Seg Neutrophils % Seg Neuts % (Manual) Lymphocytes % (Manual) 12.0 L Monocytes % (Manual) Eosinophils % (Manual) Basophils % (Manual) Nucleated RBC % Seg Neutrophils # Seg Neutrophils # Man Lymphocytes # (Manual) Monocytes # (Manual) Eosinophils # (Manual) PT INR Fibrinogen dRVVT Confirm Interp Factor V Activity POC ABG pH 7.475 H POC ABG pCO2 33.3 L POC ABG pO2 140 H ABG pO2 ABG HCO3 ABG Base Excess ABG Hemoglobin Oxyhemoglobin Sodium Potassium Chloride Carbon Dioxide BUN Creatinine Glucose POC Glucose 141 H Lactic Acid Calcium Phosphorus Magnesium Direct Bilirubin AST ALT Alkaline Phosphatase Lactate Dehydrogenase Troponin T C-Reactive Protein Total Protein Albumin Prealbumin Triglycerides Cholesterol LDL Cholesterol Direct HDL Cholesterol Urine pH Urine WBC (Auto) Urine Creatinine Urine Total Protein Fluid Total Protein Vancomycin Trough Rheumatoid Factor Complement C4 Miscellaneous Test Crossmatch 10/05/16 10/05/16 10/05/16 05:00 05:09 12:58 WBC RBC Hgb Hct MCV MCH MCHC RDW Plt Count Lymph % (Auto) [place] % (Auto) Lymph # [place] # Baso # Seg Neutrophils % Seg Neuts % (Manual) Lymphocytes % (Manual) Monocytes % (Manual) Eosinophils % (Manual) Basophils % (Manual) Nucleated RBC % Seg Neutrophils # Seg Neutrophils # Man Lymphocytes # (Manual) Monocytes # (Manual) Eosinophils # (Manual) PT INR Fibrinogen dRVVT Confirm Interp Factor V Activity POC ABG pH POC ABG pCO2 POC ABG pO2 ABG pO2 ABG HCO3 ABG Base Excess ABG Hemoglobin Oxyhemoglobin Sodium 131 L Potassium Chloride 94.0 L Carbon Dioxide 20 L BUN 22 H Creatinine 2.0 H Glucose 123 H POC Glucose 166 H 179 H Lactic Acid Calcium 7.7 L Phosphorus 2.20 L D Magnesium Direct Bilirubin AST ALT Alkaline Phosphatase Lactate Dehydrogenase Troponin T C-Reactive Protein Total Protein Albumin Prealbumin Triglycerides Cholesterol LDL Cholesterol Direct HDL Cholesterol Urine pH Urine WBC (Auto) Urine Creatinine Urine Total Protein Fluid Total Protein Vancomycin Trough Rheumatoid Factor Complement C4 Miscellaneous Test Crossmatch 10/05/16 10/05/16 10/05/16 15:50 18:53 23:12 WBC RBC Hgb Hct MCV MCH MCHC RDW Plt Count Lymph % (Auto) [place] % (Auto) Lymph # [place] # Baso # Seg Neutrophils % Seg Neuts % (Manual) Lymphocytes % (Manual) Monocytes % (Manual) Eosinophils % (Manual) Basophils % (Manual) Nucleated RBC % Seg Neutrophils # Seg Neutrophils # Man Lymphocytes # (Manual) Monocytes # (Manual) Eosinophils # (Manual) PT INR Fibrinogen dRVVT Confirm Interp Factor V Activity POC ABG pH POC ABG pCO2 POC ABG pO2 ABG pO2 ABG HCO3 ABG Base Excess ABG Hemoglobin Oxyhemoglobin Sodium Potassium Chloride Carbon Dioxide BUN Creatinine Glucose POC Glucose 150 H 164 H Lactic Acid Calcium Phosphorus Magnesium Direct Bilirubin AST ALT Alkaline Phosphatase Lactate Dehydrogenase Troponin T C-Reactive Protein Total Protein Albumin Prealbumin Triglycerides Cholesterol LDL Cholesterol Direct HDL Cholesterol Urine pH Urine WBC (Auto) Urine Creatinine Urine Total Protein Fluid Total Protein Vancomycin Trough Rheumatoid Factor Complement C4 Miscellaneous Test Crossmatch See Detail 10/06/16 10/06/16 10/06/16 03:50 03:50 04:53 WBC RBC 3.00 L Hgb 8.6 L Hct 25.8 L MCV MCH MCHC RDW 17.9 H Plt Count 65 L Lymph % (Auto) [place] % (Auto) Lymph # [place] # Baso # Seg Neutrophils % Seg Neuts % (Manual) 30.0 L Lymphocytes % (Manual) 5.0 L Monocytes % (Manual) Eosinophils % (Manual) Basophils % (Manual) Nucleated RBC % Seg Neutrophils # Seg Neutrophils # Man Lymphocytes # (Manual) 0.4 L Monocytes # (Manual) Eosinophils # (Manual) PT INR Fibrinogen dRVVT Confirm Interp Factor V Activity POC ABG pH 7.310 L POC ABG pCO2 49.0 H POC ABG pO2 ABG pO2 ABG HCO3 ABG Base Excess ABG Hemoglobin Oxyhemoglobin Sodium 133 L Potassium Chloride 95.9 L Carbon Dioxide BUN 26 H Creatinine 2.0 H Glucose 116 H POC Glucose Lactic Acid Calcium 7.8 L Phosphorus Magnesium Direct Bilirubin AST ALT Alkaline Phosphatase Lactate Dehydrogenase Troponin T C-Reactive Protein Total Protein Albumin Prealbumin Triglycerides Cholesterol LDL Cholesterol Direct HDL Cholesterol Urine pH Urine WBC (Auto) Urine Creatinine Urine Total Protein Fluid Total Protein Vancomycin Trough Rheumatoid Factor Complement C4 Miscellaneous Test Crossmatch 10/06/16 10/06/16 10/06/16 05:23 11:52 18:34 WBC RBC Hgb Hct MCV MCH MCHC RDW Plt Count Lymph % (Auto) [place] % (Auto) Lymph # [place] # Baso # Seg Neutrophils % Seg Neuts % (Manual) Lymphocytes % (Manual) Monocytes % (Manual) Eosinophils % (Manual) Basophils % (Manual) Nucleated RBC % Seg Neutrophils # Seg Neutrophils # Man Lymphocytes # (Manual) Monocytes # (Manual) Eosinophils # (Manual) PT INR Fibrinogen dRVVT Confirm Interp Factor V Activity POC ABG pH POC ABG pCO2 POC ABG pO2 ABG pO2 ABG HCO3 ABG Base Excess ABG Hemoglobin Oxyhemoglobin Sodium Potassium Chloride Carbon Dioxide BUN Creatinine Glucose POC Glucose 126 H 116 H 129 H Lactic Acid Calcium Phosphorus Magnesium Direct Bilirubin AST ALT Alkaline Phosphatase Lactate Dehydrogenase Troponin T C-Reactive Protein Total Protein Albumin Prealbumin Triglycerides Cholesterol LDL Cholesterol Direct HDL Cholesterol Urine pH Urine WBC (Auto) Urine Creatinine Urine Total Protein Fluid Total Protein Vancomycin Trough Rheumatoid Factor Complement C4 Miscellaneous Test Crossmatch 10/07/16 10/07/16 10/07/16 03:45 05:00 10:00 WBC 17.0 H RBC 2.68 L Hgb 7.3 L Hct 25.3 L MCV MCH 27 L MCHC 29 L RDW 19.6 H Plt Count 74 L Lymph % (Auto) [place] % (Auto) Lymph # [place] # Baso # Seg Neutrophils % Seg Neuts % (Manual) Lymphocytes % (Manual) 12.0 L Monocytes % (Manual) Eosinophils % (Manual) Basophils % (Manual) Nucleated RBC % 4.0 H Seg Neutrophils # Seg Neutrophils # Man 10.7 H Lymphocytes # (Manual) Monocytes # (Manual) Eosinophils # (Manual) PT INR Fibrinogen dRVVT Confirm Interp Factor V Activity POC ABG pH POC ABG pCO2 POC ABG pO2 ABG pO2 ABG HCO3 ABG Base Excess ABG Hemoglobin Oxyhemoglobin Sodium 130 L Potassium 3.2 L Chloride 93.9 L Carbon Dioxide 20 L BUN 44 H Creatinine 2.7 H Glucose 129 H POC Glucose Lactic Acid Calcium 7.4 L Phosphorus Magnesium Direct Bilirubin AST ALT 6 L Alkaline Phosphatase 195 H Lactate Dehydrogenase Troponin T C-Reactive Protein Total Protein 4.9 L Albumin 1.0 L Prealbumin Triglycerides Cholesterol LDL Cholesterol Direct HDL Cholesterol Urine pH Urine WBC (Auto) Urine Creatinine Urine Total Protein Fluid Total Protein Vancomycin Trough Rheumatoid Factor Complement C4 Miscellaneous Test Flexitest 1 H Crossmatch 10/07/16 10/07/16 10/07/16 10:00 11:24 18:10 WBC RBC Hgb Hct MCV MCH MCHC RDW Plt Count Lymph % (Auto) [place] % (Auto) Lymph # [place] # Baso # Seg Neutrophils % Seg Neuts % (Manual) Lymphocytes % (Manual) Monocytes % (Manual) Eosinophils % (Manual) Basophils % (Manual) Nucleated RBC % Seg Neutrophils # Seg Neutrophils # Man Lymphocytes # (Manual) Monocytes # (Manual) Eosinophils # (Manual) PT INR Fibrinogen dRVVT Confirm Interp Factor V Activity POC ABG pH POC ABG pCO2 POC ABG pO2 ABG pO2 ABG HCO3 ABG Base Excess ABG Hemoglobin Oxyhemoglobin Sodium Potassium Chloride Carbon Dioxide BUN Creatinine Glucose POC Glucose 116 H 130 H Lactic Acid Calcium Phosphorus Magnesium Direct Bilirubin AST ALT Alkaline Phosphatase Lactate Dehydrogenase Troponin T C-Reactive Protein 19.40 H Total Protein Albumin Prealbumin Triglycerides Cholesterol LDL Cholesterol Direct HDL Cholesterol Urine pH Urine WBC (Auto) Urine Creatinine Urine Total Protein Fluid Total Protein Vancomycin Trough Rheumatoid Factor Complement C4 Miscellaneous Test Crossmatch 10/07/16 10/08/16 10/08/16 18:30 00:00 04:00 WBC RBC Hgb Hct MCV MCH MCHC RDW Plt Count Lymph % (Auto) [place] % (Auto) Lymph # [place] # Baso # Seg Neutrophils % Seg Neuts % (Manual) Lymphocytes % (Manual) Monocytes % (Manual) Eosinophils % (Manual) Basophils % (Manual) Nucleated RBC % Seg Neutrophils # Seg Neutrophils # Man Lymphocytes # (Manual) Monocytes # (Manual) Eosinophils # (Manual) PT INR Fibrinogen dRVVT Confirm Interp Factor V Activity POC ABG pH POC ABG pCO2 POC ABG pO2 ABG pO2 ABG HCO3 ABG Base Excess ABG Hemoglobin Oxyhemoglobin Sodium 132 L Potassium 3.3 L Chloride 93.6 L Carbon Dioxide 17 L BUN 59 H Creatinine 2.7 H Glucose 121 H POC Glucose 122 H Lactic Acid Calcium 7.6 L Phosphorus Magnesium Direct Bilirubin AST ALT Alkaline Phosphatase Lactate Dehydrogenase Troponin T C-Reactive Protein Total Protein Albumin Prealbumin Triglycerides Cholesterol LDL Cholesterol Direct HDL Cholesterol Urine pH Urine WBC (Auto) > 182.0 H Urine Creatinine Urine Total Protein Fluid Total Protein Vancomycin Trough Rheumatoid Factor Complement C4 Miscellaneous Test Crossmatch 10/08/16 10/08/16 10/08/16 04:30 05:30 11:51 WBC RBC 5.15 H Hgb 14.4 H D Hct 44.5 H D MCV MCH MCHC RDW 19.5 H Plt Count 56 L Lymph % (Auto) [place] % (Auto) Lymph # [place] # Baso # Seg Neutrophils % Seg Neuts % (Manual) 24.0 L Lymphocytes % (Manual) 8.0 L Monocytes % (Manual) Eosinophils % (Manual) Basophils % (Manual) Nucleated RBC % 9.0 H Seg Neutrophils # Seg Neutrophils # Man Lymphocytes # (Manual) 0.7 L Monocytes # (Manual) Eosinophils # (Manual) PT INR Fibrinogen dRVVT Confirm Interp Factor V Activity POC ABG pH POC ABG pCO2 POC ABG pO2 ABG pO2 ABG HCO3 ABG Base Excess ABG Hemoglobin Oxyhemoglobin Sodium Potassium Chloride Carbon Dioxide BUN Creatinine Glucose POC Glucose 125 H 150 H Lactic Acid Calcium Phosphorus Magnesium Direct Bilirubin AST ALT Alkaline Phosphatase Lactate Dehydrogenase Troponin T C-Reactive Protein Total Protein Albumin Prealbumin Triglycerides Cholesterol LDL Cholesterol Direct HDL Cholesterol Urine pH Urine WBC (Auto) Urine Creatinine Urine Total Protein Fluid Total Protein Vancomycin Trough Rheumatoid Factor Complement C4 Miscellaneous Test Crossmatch 10/08/16 10/08/16 10/08/16 12:49 17:07 19:30 WBC RBC Hgb 7.1 L D Hct 22.4 L D MCV MCH MCHC RDW Plt Count Lymph % (Auto) [place] % (Auto) Lymph # [place] # Baso # Seg Neutrophils % Seg Neuts % (Manual) Lymphocytes % (Manual) Monocytes % (Manual) Eosinophils % (Manual) Basophils % (Manual) Nucleated RBC % Seg Neutrophils # Seg Neutrophils # Man Lymphocytes # (Manual) Monocytes # (Manual) Eosinophils # (Manual) PT INR Fibrinogen dRVVT Confirm Interp Factor V Activity POC ABG pH POC ABG pCO2 28.2 L POC ABG pO2 111 H ABG pO2 ABG HCO3 ABG Base Excess ABG Hemoglobin Oxyhemoglobin Sodium Potassium Chloride Carbon Dioxide BUN Creatinine Glucose POC Glucose 145 H Lactic Acid Calcium Phosphorus Magnesium Direct Bilirubin AST ALT Alkaline Phosphatase Lactate Dehydrogenase Troponin T C-Reactive Protein Total Protein Albumin Prealbumin Triglycerides Cholesterol LDL Cholesterol Direct HDL Cholesterol Urine pH Urine WBC (Auto) Urine Creatinine Urine Total Protein Fluid Total Protein Vancomycin Trough Rheumatoid Factor Complement C4 Miscellaneous Test Crossmatch 10/08/16 10/09/16 10/09/16 19:30 03:45 03:45 WBC 12.6 H RBC 2.36 L Hgb 6.7 L Hct 21.1 L MCV MCH MCHC RDW 19.5 H Plt Count 75 L Lymph % (Auto) [place] % (Auto) Lymph # [place] # Baso # Seg Neutrophils % Seg Neuts % (Manual) Lymphocytes % (Manual) Monocytes % (Manual) 10.0 H Eosinophils % (Manual) Basophils % (Manual) Nucleated RBC % 3.0 H Seg Neutrophils # Seg Neutrophils # Man Lymphocytes # (Manual) Monocytes # (Manual) 1.3 H Eosinophils # (Manual) PT 18.0 H INR 1.41 H Fibrinogen dRVVT Confirm Interp Factor V Activity POC ABG pH POC ABG pCO2 POC ABG pO2 ABG pO2 ABG HCO3 ABG Base Excess ABG Hemoglobin Oxyhemoglobin Sodium 135 L Potassium Chloride Carbon Dioxide 17 L BUN 81 H Creatinine 3.2 H Glucose 109 H POC Glucose Lactic Acid Calcium 7.4 L Phosphorus 4.60 H D Magnesium Direct Bilirubin AST ALT Alkaline Phosphatase Lactate Dehydrogenase Troponin T C-Reactive Protein Total Protein Albumin Prealbumin Triglycerides Cholesterol LDL Cholesterol Direct HDL Cholesterol Urine pH Urine WBC (Auto) Urine Creatinine Urine Total Protein Fluid Total Protein Vancomycin Trough Rheumatoid Factor Complement C4 Miscellaneous Test Crossmatch 10/09/16 10/09/16 10/09/16 03:45 05:14 07:20 WBC RBC Hgb Hct MCV MCH MCHC RDW Plt Count Lymph % (Auto) [place] % (Auto) Lymph # [place] # Baso # Seg Neutrophils % Seg Neuts % (Manual) Lymphocytes % (Manual) Monocytes % (Manual) Eosinophils % (Manual) Basophils % (Manual) Nucleated RBC % Seg Neutrophils # Seg Neutrophils # Man Lymphocytes # (Manual) Monocytes # (Manual) Eosinophils # (Manual) PT 19.0 H INR 1.51 H Fibrinogen dRVVT Confirm Interp Factor V Activity POC ABG pH POC ABG pCO2 POC ABG pO2 ABG pO2 ABG HCO3 ABG Base Excess ABG Hemoglobin Oxyhemoglobin Sodium Potassium Chloride Carbon Dioxide BUN Creatinine Glucose POC Glucose 151 H Lactic Acid Calcium Phosphorus Magnesium Direct Bilirubin AST ALT Alkaline Phosphatase Lactate Dehydrogenase Troponin T C-Reactive Protein Total Protein Albumin Prealbumin Triglycerides Cholesterol LDL Cholesterol Direct HDL Cholesterol Urine pH Urine WBC (Auto) Urine Creatinine Urine Total Protein Fluid Total Protein Vancomycin Trough Rheumatoid Factor Complement C4 Miscellaneous Test Crossmatch See Detail 10/09/16 10/09/16 10/09/16 11:46 16:20 16:43 WBC RBC Hgb 7.2 L Hct 22.2 L MCV MCH MCHC RDW Plt Count Lymph % (Auto) [place] % (Auto) Lymph # [place] # Baso # Seg Neutrophils % Seg Neuts % (Manual) Lymphocytes % (Manual) Monocytes % (Manual) Eosinophils % (Manual) Basophils % (Manual) Nucleated RBC % Seg Neutrophils # Seg Neutrophils # Man Lymphocytes # (Manual) Monocytes # (Manual) Eosinophils # (Manual) PT INR Fibrinogen dRVVT Confirm Interp Factor V Activity POC ABG pH POC ABG pCO2 POC ABG pO2 ABG pO2 ABG HCO3 ABG Base Excess ABG Hemoglobin Oxyhemoglobin Sodium Potassium Chloride Carbon Dioxide BUN Creatinine Glucose POC Glucose 133 H 141 H Lactic Acid Calcium Phosphorus Magnesium Direct Bilirubin AST ALT Alkaline Phosphatase Lactate Dehydrogenase Troponin T C-Reactive Protein Total Protein Albumin Prealbumin Triglycerides Cholesterol LDL Cholesterol Direct HDL Cholesterol Urine pH Urine WBC (Auto) Urine Creatinine Urine Total Protein Fluid Total Protein Vancomycin Trough Rheumatoid Factor Complement C4 Miscellaneous Test Crossmatch 10/10/16 10/10/16 10/10/16 05:00 05:00 11:19 WBC 18.5 H RBC 2.19 L Hgb 6.4 L Hct 19.6 L* MCV MCH MCHC RDW 19.3 H Plt Count 93 L Lymph % (Auto) [place] % (Auto) Lymph # [place] # Baso # Seg Neutrophils % Seg Neuts % (Manual) Lymphocytes % (Manual) 10.0 L Monocytes % (Manual) Eosinophils % (Manual) Basophils % (Manual) Nucleated RBC % 4.0 H Seg Neutrophils # Seg Neutrophils # Man 11.3 H Lymphocytes # (Manual) Monocytes # (Manual) Eosinophils # (Manual) PT INR Fibrinogen dRVVT Confirm Interp Factor V Activity POC ABG pH POC ABG pCO2 POC ABG pO2 ABG pO2 ABG HCO3 ABG Base Excess ABG Hemoglobin Oxyhemoglobin Sodium Potassium 5.7 H D Chloride Carbon Dioxide 16 L BUN 94 H Creatinine 3.1 H Glucose 131 H POC Glucose 153 H Lactic Acid Calcium 8.2 L Phosphorus 5.10 H Magnesium 2.40 H Direct Bilirubin 0.3 H AST ALT < 5 L Alkaline Phosphatase 319 H Lactate Dehydrogenase Troponin T C-Reactive Protein Total Protein 5.1 L Albumin 1.0 L Prealbumin Triglycerides Cholesterol LDL Cholesterol Direct HDL Cholesterol Urine pH Urine WBC (Auto) Urine Creatinine Urine Total Protein Fluid Total Protein Vancomycin Trough Rheumatoid Factor Complement C4 Miscellaneous Test Crossmatch 10/10/16 10/10/16 10/11/16 17:50 23:30 04:15 WBC RBC Hgb Hct MCV MCH MCHC RDW Plt Count Lymph % (Auto) [place] % (Auto) Lymph # [place] # Baso # Seg Neutrophils % Seg Neuts % (Manual) Lymphocytes % (Manual) Monocytes % (Manual) Eosinophils % (Manual) Basophils % (Manual) Nucleated RBC % Seg Neutrophils # Seg Neutrophils # Man Lymphocytes # (Manual) Monocytes # (Manual) Eosinophils # (Manual) PT INR Fibrinogen dRVVT Confirm Interp Factor V Activity POC ABG pH POC ABG pCO2 POC ABG pO2 ABG pO2 ABG HCO3 ABG Base Excess ABG Hemoglobin Oxyhemoglobin Sodium Potassium Chloride 96.4 L Carbon Dioxide 21 L BUN 57 H Creatinine 2.1 H Glucose 151 H POC Glucose 146 H 141 H Lactic Acid Calcium 8.3 L Phosphorus Magnesium Direct Bilirubin AST ALT Alkaline Phosphatase Lactate Dehydrogenase Troponin T C-Reactive Protein Total Protein Albumin Prealbumin Triglycerides Cholesterol LDL Cholesterol Direct HDL Cholesterol Urine pH Urine WBC (Auto) Urine Creatinine Urine Total Protein Fluid Total Protein Vancomycin Trough Rheumatoid Factor Complement C4 Miscellaneous Test Crossmatch 10/11/16 10/11/16 10/11/16 04:15 04:15 05:30 WBC 28.3 H RBC 3.12 L Hgb 9.3 L Hct 28.7 L D MCV MCH MCHC RDW 17.7 H Plt Count 128 L Lymph % (Auto) [place] % (Auto) Lymph # [place] # Baso # Seg Neutrophils % Seg Neuts % (Manual) Lymphocytes % (Manual) Monocytes % (Manual) Eosinophils % (Manual) Basophils % (Manual) Nucleated RBC % Seg Neutrophils # Seg Neutrophils # Man Lymphocytes # (Manual) Monocytes # (Manual) Eosinophils # (Manual) PT INR Fibrinogen dRVVT Confirm Interp Factor V Activity POC ABG pH POC ABG pCO2 POC ABG pO2 ABG pO2 ABG HCO3 ABG Base Excess ABG Hemoglobin Oxyhemoglobin Sodium Potassium Chloride Carbon Dioxide BUN Creatinine Glucose POC Glucose 167 H Lactic Acid Calcium Phosphorus Magnesium Direct Bilirubin AST ALT Alkaline Phosphatase Lactate Dehydrogenase Troponin T C-Reactive Protein 15.80 H Total Protein Albumin Prealbumin Triglycerides Cholesterol LDL Cholesterol Direct HDL Cholesterol Urine pH Urine WBC (Auto) Urine Creatinine Urine Total Protein Fluid Total Protein Vancomycin Trough Rheumatoid Factor Complement C4 Miscellaneous Test Crossmatch 10/11/16 10/11/16 10/11/16 11:40 15:49 23:57 WBC RBC Hgb Hct MCV MCH MCHC RDW Plt Count Lymph % (Auto) [place] % (Auto) Lymph # [place] # Baso # Seg Neutrophils % Seg Neuts % (Manual) Lymphocytes % (Manual) Monocytes % (Manual) Eosinophils % (Manual) Basophils % (Manual) Nucleated RBC % Seg Neutrophils # Seg Neutrophils # Man Lymphocytes # (Manual) Monocytes # (Manual) Eosinophils # (Manual) PT INR Fibrinogen dRVVT Confirm Interp Factor V Activity POC ABG pH POC ABG pCO2 POC ABG pO2 ABG pO2 ABG HCO3 ABG Base Excess ABG Hemoglobin Oxyhemoglobin Sodium Potassium Chloride Carbon Dioxide BUN Creatinine Glucose POC Glucose 139 H 168 H 161 H Lactic Acid Calcium Phosphorus Magnesium Direct Bilirubin AST ALT Alkaline Phosphatase Lactate Dehydrogenase Troponin T C-Reactive Protein Total Protein Albumin Prealbumin Triglycerides Cholesterol LDL Cholesterol Direct HDL Cholesterol Urine pH Urine WBC (Auto) Urine Creatinine Urine Total Protein Fluid Total Protein Vancomycin Trough Rheumatoid Factor Complement C4 Miscellaneous Test Crossmatch 10/12/16 10/12/16 10/12/16 04:40 04:40 05:44 WBC 22.5 H RBC 2.88 L Hgb 8.8 L Hct 26.8 L MCV MCH MCHC RDW 17.8 H Plt Count Lymph % (Auto) [place] % (Auto) Lymph # [place] # Baso # Seg Neutrophils % Seg Neuts % (Manual) Lymphocytes % (Manual) Monocytes % (Manual) Eosinophils % (Manual) Basophils % (Manual) Nucleated RBC % Seg Neutrophils # Seg Neutrophils # Man Lymphocytes # (Manual) Monocytes # (Manual) Eosinophils # (Manual) PT INR Fibrinogen dRVVT Confirm Interp Factor V Activity POC ABG pH POC ABG pCO2 POC ABG pO2 ABG pO2 ABG HCO3 ABG Base Excess ABG Hemoglobin Oxyhemoglobin Sodium 134 L Potassium Chloride 93.0 L Carbon Dioxide BUN 74 H Creatinine 2.5 H Glucose 137 H POC Glucose 158 H Lactic Acid Calcium 8.2 L Phosphorus Magnesium Direct Bilirubin AST ALT Alkaline Phosphatase Lactate Dehydrogenase Troponin T C-Reactive Protein Total Protein Albumin Prealbumin Triglycerides Cholesterol LDL Cholesterol Direct HDL Cholesterol Urine pH Urine WBC (Auto) Urine Creatinine Urine Total Protein Fluid Total Protein Vancomycin Trough Rheumatoid Factor Complement C4 Miscellaneous Test Crossmatch 10/12/16 10/12/16 10/12/16 12:27 18:18 23:46 WBC RBC Hgb Hct MCV MCH MCHC RDW Plt Count Lymph % (Auto) [place] % (Auto) Lymph # [place] # Baso # Seg Neutrophils % Seg Neuts % (Manual) Lymphocytes % (Manual) Monocytes % (Manual) Eosinophils % (Manual) Basophils % (Manual) Nucleated RBC % Seg Neutrophils # Seg Neutrophils # Man Lymphocytes # (Manual) Monocytes # (Manual) Eosinophils # (Manual) PT INR Fibrinogen dRVVT Confirm Interp Factor V Activity POC ABG pH POC ABG pCO2 POC ABG pO2 ABG pO2 ABG HCO3 ABG Base Excess ABG Hemoglobin Oxyhemoglobin Sodium Potassium Chloride Carbon Dioxide BUN Creatinine Glucose POC Glucose 153 H 140 H 150 H Lactic Acid Calcium Phosphorus Magnesium Direct Bilirubin AST ALT Alkaline Phosphatase Lactate Dehydrogenase Troponin T C-Reactive Protein Total Protein Albumin Prealbumin Triglycerides Cholesterol LDL Cholesterol Direct HDL Cholesterol Urine pH Urine WBC (Auto) Urine Creatinine Urine Total Protein Fluid Total Protein Vancomycin Trough Rheumatoid Factor Complement C4 Miscellaneous Test Crossmatch 10/13/16 10/13/16 10/13/16 06:22 09:20 12:29 WBC RBC Hgb Hct MCV MCH MCHC RDW Plt Count Lymph % (Auto) [place] % (Auto) Lymph # [place] # Baso # Seg Neutrophils % Seg Neuts % (Manual) Lymphocytes % (Manual) Monocytes % (Manual) Eosinophils % (Manual) Basophils % (Manual) Nucleated RBC % Seg Neutrophils # Seg Neutrophils # Man Lymphocytes # (Manual) Monocytes # (Manual) Eosinophils # (Manual) PT INR Fibrinogen dRVVT Confirm Interp Factor V Activity POC ABG pH POC ABG pCO2 POC ABG pO2 ABG pO2 ABG HCO3 ABG Base Excess ABG Hemoglobin Oxyhemoglobin Sodium Potassium Chloride Carbon Dioxide BUN Creatinine Glucose POC Glucose 165 H 193 H Lactic Acid Calcium Phosphorus Magnesium Direct Bilirubin AST ALT Alkaline Phosphatase Lactate Dehydrogenase Troponin T C-Reactive Protein Total Protein Albumin Prealbumin Triglycerides Cholesterol LDL Cholesterol Direct HDL Cholesterol Urine pH Urine WBC (Auto) Urine Creatinine Urine Total Protein Fluid Total Protein Vancomycin Trough Rheumatoid Factor Complement C4 Miscellaneous Test Flexitest 1 H Crossmatch 10/13/16 10/13/16 10/13/16 18:09 Unknown Unknown WBC 23.4 H RBC 2.83 L Hgb 8.7 L Hct 26.1 L MCV MCH MCHC RDW 18.1 H Plt Count Lymph % (Auto) [place] % (Auto) Lymph # [place] # Baso # Seg Neutrophils % Seg Neuts % (Manual) Lymphocytes % (Manual) Monocytes % (Manual) Eosinophils % (Manual) Basophils % (Manual) Nucleated RBC % Seg Neutrophils # Seg Neutrophils # Man Lymphocytes # (Manual) Monocytes # (Manual) Eosinophils # (Manual) PT INR Fibrinogen dRVVT Confirm Interp Factor V Activity POC ABG pH POC ABG pCO2 POC ABG pO2 ABG pO2 ABG HCO3 ABG Base Excess ABG Hemoglobin Oxyhemoglobin Sodium Potassium Chloride 95.8 L Carbon Dioxide BUN 82 H Creatinine 2.6 H Glucose 152 H POC Glucose 166 H Lactic Acid Calcium Phosphorus Magnesium Direct Bilirubin AST ALT Alkaline Phosphatase Lactate Dehydrogenase Troponin T C-Reactive Protein Total Protein Albumin Prealbumin Triglycerides Cholesterol LDL Cholesterol Direct HDL Cholesterol Urine pH Urine WBC (Auto) Urine Creatinine Urine Total Protein Fluid Total Protein Vancomycin Trough Rheumatoid Factor Complement C4 Miscellaneous Test Crossmatch 10/14/16 10/14/16 10/14/16 05:38 06:35 08:10 WBC 20.7 H RBC 2.81 L Hgb 8.4 L Hct 27.2 L MCV MCH MCHC RDW 19.4 H Plt Count Lymph % (Auto) [place] % (Auto) Lymph # [place] # Baso # Seg Neutrophils % Seg Neuts % (Manual) Lymphocytes % (Manual) Monocytes % (Manual) Eosinophils % (Manual) Basophils % (Manual) Nucleated RBC % Seg Neutrophils # Seg Neutrophils # Man Lymphocytes # (Manual) Monocytes # (Manual) Eosinophils # (Manual) PT INR Fibrinogen dRVVT Confirm Interp Factor V Activity POC ABG pH POC ABG pCO2 POC ABG pO2 ABG pO2 ABG HCO3 ABG Base Excess ABG Hemoglobin Oxyhemoglobin Sodium Potassium Chloride Carbon Dioxide BUN 58 H Creatinine 1.9 H Glucose 169 H POC Glucose 195 H Lactic Acid Calcium Phosphorus Magnesium Direct Bilirubin AST ALT Alkaline Phosphatase Lactate Dehydrogenase Troponin T C-Reactive Protein Total Protein Albumin Prealbumin Triglycerides Cholesterol LDL Cholesterol Direct HDL Cholesterol Urine pH Urine WBC (Auto) Urine Creatinine Urine Total Protein Fluid Total Protein Vancomycin Trough Rheumatoid Factor Complement C4 Miscellaneous Test Crossmatch 10/14/16 10/14/16 10/14/16 11:44 17:13 23:28 WBC RBC Hgb Hct MCV MCH MCHC RDW Plt Count Lymph % (Auto) [place] % (Auto) Lymph # [place] # Baso # Seg Neutrophils % Seg Neuts % (Manual) Lymphocytes % (Manual) Monocytes % (Manual) Eosinophils % (Manual) Basophils % (Manual) Nucleated RBC % Seg Neutrophils # Seg Neutrophils # Man Lymphocytes # (Manual) Monocytes # (Manual) Eosinophils # (Manual) PT INR Fibrinogen dRVVT Confirm Interp Factor V Activity POC ABG pH POC ABG pCO2 POC ABG pO2 ABG pO2 ABG HCO3 ABG Base Excess ABG Hemoglobin Oxyhemoglobin Sodium Potassium Chloride Carbon Dioxide BUN Creatinine Glucose POC Glucose 174 H 121 H 151 H Lactic Acid Calcium Phosphorus Magnesium Direct Bilirubin AST ALT Alkaline Phosphatase Lactate Dehydrogenase Troponin T C-Reactive Protein Total Protein Albumin Prealbumin Triglycerides Cholesterol LDL Cholesterol Direct HDL Cholesterol Urine pH Urine WBC (Auto) Urine Creatinine Urine Total Protein Fluid Total Protein Vancomycin Trough Rheumatoid Factor Complement C4 Miscellaneous Test Crossmatch 10/15/16 10/15/16 10/15/16 05:06 12:26 17:48 WBC RBC Hgb Hct MCV MCH MCHC RDW Plt Count Lymph % (Auto) [place] % (Auto) Lymph # [place] # Baso # Seg Neutrophils % Seg Neuts % (Manual) Lymphocytes % (Manual) Monocytes % (Manual) Eosinophils % (Manual) Basophils % (Manual) Nucleated RBC % Seg Neutrophils # Seg Neutrophils # Man Lymphocytes # (Manual) Monocytes # (Manual) Eosinophils # (Manual) PT INR Fibrinogen dRVVT Confirm Interp Factor V Activity POC ABG pH POC ABG pCO2 POC ABG pO2 ABG pO2 ABG HCO3 ABG Base Excess ABG Hemoglobin Oxyhemoglobin Sodium Potassium Chloride Carbon Dioxide BUN Creatinine Glucose POC Glucose 151 H 149 H 153 H Lactic Acid Calcium Phosphorus Magnesium Direct Bilirubin AST ALT Alkaline Phosphatase Lactate Dehydrogenase Troponin T C-Reactive Protein Total Protein Albumin Prealbumin Triglycerides Cholesterol LDL Cholesterol Direct HDL Cholesterol Urine pH Urine WBC (Auto) Urine Creatinine Urine Total Protein Fluid Total Protein Vancomycin Trough Rheumatoid Factor Complement C4 Miscellaneous Test Crossmatch 10/15/16 10/15/16 10/16/16 Unknown Unknown 00:02 WBC 23.4 H RBC 2.78 L Hgb 8.5 L Hct 25.7 L MCV MCH MCHC RDW 18.7 H Plt Count Lymph % (Auto) [place] % (Auto) Lymph # [place] # Baso # Seg Neutrophils % Seg Neuts % (Manual) Lymphocytes % (Manual) Monocytes % (Manual) Eosinophils % (Manual) Basophils % (Manual) Nucleated RBC % Seg Neutrophils # Seg Neutrophils # Man Lymphocytes # (Manual) Monocytes # (Manual) Eosinophils # (Manual) PT INR Fibrinogen dRVVT Confirm Interp Factor V Activity POC ABG pH POC ABG pCO2 POC ABG pO2 ABG pO2 ABG HCO3 ABG Base Excess ABG Hemoglobin Oxyhemoglobin Sodium Potassium Chloride Carbon Dioxide BUN 73 H Creatinine 2.3 H Glucose 120 H POC Glucose 137 H Lactic Acid Calcium Phosphorus Magnesium Direct Bilirubin AST ALT Alkaline Phosphatase Lactate Dehydrogenase Troponin T C-Reactive Protein Total Protein Albumin Prealbumin Triglycerides Cholesterol LDL Cholesterol Direct HDL Cholesterol Urine pH Urine WBC (Auto) Urine Creatinine Urine Total Protein Fluid Total Protein Vancomycin Trough Rheumatoid Factor Complement C4 Miscellaneous Test Crossmatch 10/16/16 10/16/16 10/16/16 05:44 06:25 06:25 WBC 22.5 H RBC 2.76 L Hgb 8.3 L Hct 25.2 L MCV MCH MCHC RDW 18.3 H Plt Count Lymph % (Auto) [place] % (Auto) Lymph # [place] # Baso # Seg Neutrophils % Seg Neuts % (Manual) Lymphocytes % (Manual) Monocytes % (Manual) Eosinophils % (Manual) Basophils % (Manual) Nucleated RBC % Seg Neutrophils # Seg Neutrophils # Man Lymphocytes # (Manual) Monocytes # (Manual) Eosinophils # (Manual) PT INR Fibrinogen dRVVT Confirm Interp Factor V Activity POC ABG pH POC ABG pCO2 POC ABG pO2 ABG pO2 ABG HCO3 ABG Base Excess ABG Hemoglobin Oxyhemoglobin Sodium Potassium Chloride Carbon Dioxide BUN 92 H Creatinine 3.0 H Glucose 138 H POC Glucose 110 H Lactic Acid Calcium Phosphorus Magnesium Direct Bilirubin AST ALT Alkaline Phosphatase Lactate Dehydrogenase Troponin T C-Reactive Protein Total Protein Albumin Prealbumin Triglycerides Cholesterol LDL Cholesterol Direct HDL Cholesterol Urine pH Urine WBC (Auto) Urine Creatinine Urine Total Protein Fluid Total Protein Vancomycin Trough Rheumatoid Factor Complement C4 Miscellaneous Test Crossmatch 10/16/16 10/16/16 10/16/16 11:27 11:48 17:36 WBC RBC Hgb Hct MCV MCH MCHC RDW Plt Count Lymph % (Auto) [place] % (Auto) Lymph # [place] # Baso # Seg Neutrophils % Seg Neuts % (Manual) Lymphocytes % (Manual) Monocytes % (Manual) Eosinophils % (Manual) Basophils % (Manual) Nucleated RBC % Seg Neutrophils # Seg Neutrophils # Man Lymphocytes # (Manual) Monocytes # (Manual) Eosinophils # (Manual) PT INR Fibrinogen dRVVT Confirm Interp Factor V Activity POC ABG pH 7.582 H POC ABG pCO2 27.4 L POC ABG pO2 110 H ABG pO2 ABG HCO3 ABG Base Excess ABG Hemoglobin Oxyhemoglobin Sodium Potassium Chloride Carbon Dioxide BUN Creatinine Glucose POC Glucose 121 H 133 H Lactic Acid Calcium Phosphorus Magnesium Direct Bilirubin AST ALT Alkaline Phosphatase Lactate Dehydrogenase Troponin T C-Reactive Protein Total Protein Albumin Prealbumin Triglycerides Cholesterol LDL Cholesterol Direct HDL Cholesterol Urine pH Urine WBC (Auto) Urine Creatinine Urine Total Protein Fluid Total Protein Vancomycin Trough Rheumatoid Factor Complement C4 Miscellaneous Test Crossmatch 10/16/16 10/17/16 10/17/16 20:48 04:24 04:24 WBC 21.4 H RBC 2.72 L Hgb 8.0 L Hct 25.2 L MCV MCH MCHC RDW 18.0 H Plt Count Lymph % (Auto) [place] % (Auto) Lymph # [place] # Baso # Seg Neutrophils % Seg Neuts % (Manual) Lymphocytes % (Manual) Monocytes % (Manual) Eosinophils % (Manual) Basophils % (Manual) Nucleated RBC % Seg Neutrophils # Seg Neutrophils # Man Lymphocytes # (Manual) Monocytes # (Manual) Eosinophils # (Manual) PT INR Fibrinogen dRVVT Confirm Interp Factor V Activity POC ABG pH 7.561 H POC ABG pCO2 24.4 L POC ABG pO2 77 L ABG pO2 ABG HCO3 ABG Base Excess ABG Hemoglobin Oxyhemoglobin Sodium 148 H Potassium Chloride Carbon Dioxide BUN 104 H Creatinine 3.0 H Glucose 149 H POC Glucose Lactic Acid Calcium Phosphorus Magnesium Direct Bilirubin AST ALT Alkaline Phosphatase 138 H Lactate Dehydrogenase Troponin T C-Reactive Protein Total Protein 6.2 L Albumin 1.5 L Prealbumin Triglycerides Cholesterol LDL Cholesterol Direct HDL Cholesterol Urine pH Urine WBC (Auto) Urine Creatinine Urine Total Protein Fluid Total Protein Vancomycin Trough Rheumatoid Factor Complement C4 Miscellaneous Test Crossmatch 10/17/16 10/17/16 10/17/16 06:02 12:17 17:14 WBC RBC Hgb Hct MCV MCH MCHC RDW Plt Count Lymph % (Auto) [place] % (Auto) Lymph # [place] # Baso # Seg Neutrophils % Seg Neuts % (Manual) Lymphocytes % (Manual) Monocytes % (Manual) Eosinophils % (Manual) Basophils % (Manual) Nucleated RBC % Seg Neutrophils # Seg Neutrophils # Man Lymphocytes # (Manual) Monocytes # (Manual) Eosinophils # (Manual) PT INR Fibrinogen dRVVT Confirm Interp Factor V Activity POC ABG pH POC ABG pCO2 POC ABG pO2 ABG pO2 ABG HCO3 ABG Base Excess ABG Hemoglobin Oxyhemoglobin Sodium Potassium Chloride Carbon Dioxide BUN Creatinine Glucose POC Glucose 170 H 167 H 126 H Lactic Acid Calcium Phosphorus Magnesium Direct Bilirubin AST ALT Alkaline Phosphatase Lactate Dehydrogenase Troponin T C-Reactive Protein Total Protein Albumin Prealbumin Triglycerides Cholesterol LDL Cholesterol Direct HDL Cholesterol Urine pH Urine WBC (Auto) Urine Creatinine Urine Total Protein Fluid Total Protein Vancomycin Trough Rheumatoid Factor Complement C4 Miscellaneous Test Crossmatch 10/17/16 10/18/16 10/18/16 23:17 04:00 04:00 WBC 20.7 H RBC 2.47 L Hgb 7.4 L Hct 22.9 L MCV MCH MCHC RDW 17.5 H Plt Count Lymph % (Auto) [place] % (Auto) Lymph # [place] # Baso # Seg Neutrophils % Seg Neuts % (Manual) Lymphocytes % (Manual) Monocytes % (Manual) Eosinophils % (Manual) Basophils % (Manual) Nucleated RBC % Seg Neutrophils # Seg Neutrophils # Man Lymphocytes # (Manual) Monocytes # (Manual) Eosinophils # (Manual) PT INR Fibrinogen dRVVT Confirm Interp Factor V Activity POC ABG pH POC ABG pCO2 POC ABG pO2 ABG pO2 ABG HCO3 ABG Base Excess ABG Hemoglobin Oxyhemoglobin Sodium 149 H Potassium Chloride 107.9 H Carbon Dioxide 20 L BUN 117 H Creatinine 3.2 H Glucose 119 H POC Glucose 121 H Lactic Acid Calcium Phosphorus Magnesium Direct Bilirubin AST ALT Alkaline Phosphatase Lactate Dehydrogenase Troponin T C-Reactive Protein Total Protein Albumin Prealbumin Triglycerides Cholesterol LDL Cholesterol Direct HDL Cholesterol Urine pH Urine WBC (Auto) Urine Creatinine Urine Total Protein Fluid Total Protein Vancomycin Trough Rheumatoid Factor Complement C4 Miscellaneous Test Crossmatch 10/18/16 10/18/16 10/18/16 05:23 10:46 17:30 WBC RBC Hgb Hct MCV MCH MCHC RDW Plt Count Lymph % (Auto) [place] % (Auto) Lymph # [place] # Baso # Seg Neutrophils % Seg Neuts % (Manual) Lymphocytes % (Manual) Monocytes % (Manual) Eosinophils % (Manual) Basophils % (Manual) Nucleated RBC % Seg Neutrophils # Seg Neutrophils # Man Lymphocytes # (Manual) Monocytes # (Manual) Eosinophils # (Manual) PT INR Fibrinogen dRVVT Confirm Interp Factor V Activity POC ABG pH POC ABG pCO2 POC ABG pO2 ABG pO2 ABG HCO3 ABG Base Excess ABG Hemoglobin Oxyhemoglobin Sodium Potassium Chloride Carbon Dioxide BUN Creatinine Glucose POC Glucose 119 H 155 H 124 H Lactic Acid Calcium Phosphorus Magnesium Direct Bilirubin AST ALT Alkaline Phosphatase Lactate Dehydrogenase Troponin T C-Reactive Protein Total Protein Albumin Prealbumin Triglycerides Cholesterol LDL Cholesterol Direct HDL Cholesterol Urine pH Urine WBC (Auto) Urine Creatinine Urine Total Protein Fluid Total Protein Vancomycin Trough Rheumatoid Factor Complement C4 Miscellaneous Test Crossmatch 10/19/16 10/19/16 10/19/16 04:00 04:00 05:25 WBC 17.4 H RBC 2.54 L Hgb 7.7 L Hct 23.6 L MCV MCH MCHC RDW 17.3 H Plt Count Lymph % (Auto) [place] % (Auto) Lymph # [place] # Baso # Seg Neutrophils % Seg Neuts % (Manual) Lymphocytes % (Manual) Monocytes % (Manual) Eosinophils % (Manual) Basophils % (Manual) Nucleated RBC % Seg Neutrophils # Seg Neutrophils # Man Lymphocytes # (Manual) Monocytes # (Manual) Eosinophils # (Manual) PT INR Fibrinogen dRVVT Confirm Interp Factor V Activity POC ABG pH POC ABG pCO2 POC ABG pO2 ABG pO2 ABG HCO3 ABG Base Excess ABG Hemoglobin Oxyhemoglobin Sodium Potassium Chloride Carbon Dioxide BUN 72 H Creatinine 2.1 H Glucose 116 H POC Glucose 119 H Lactic Acid Calcium Phosphorus Magnesium Direct Bilirubin AST ALT Alkaline Phosphatase Lactate Dehydrogenase Troponin T C-Reactive Protein Total Protein Albumin Prealbumin Triglycerides Cholesterol LDL Cholesterol Direct HDL Cholesterol Urine pH Urine WBC (Auto) Urine Creatinine Urine Total Protein Fluid Total Protein Vancomycin Trough Rheumatoid Factor Complement C4 Miscellaneous Test Crossmatch 10/19/16 10/19/16 10/20/16 11:46 23:59 06:00 WBC RBC Hgb Hct MCV MCH MCHC RDW Plt Count Lymph % (Auto) [place] % (Auto) Lymph # [place] # Baso # Seg Neutrophils % Seg Neuts % (Manual) Lymphocytes % (Manual) Monocytes % (Manual) Eosinophils % (Manual) Basophils % (Manual) Nucleated RBC % Seg Neutrophils # Seg Neutrophils # Man Lymphocytes # (Manual) Monocytes # (Manual) Eosinophils # (Manual) PT INR Fibrinogen dRVVT Confirm Interp Factor V Activity POC ABG pH POC ABG pCO2 POC ABG pO2 ABG pO2 ABG HCO3 ABG Base Excess ABG Hemoglobin Oxyhemoglobin Sodium Potassium Chloride Carbon Dioxide 17 L BUN 94 H Creatinine 2.7 H Glucose POC Glucose 116 H 117 H Lactic Acid Calcium Phosphorus Magnesium Direct Bilirubin AST ALT Alkaline Phosphatase Lactate Dehydrogenase Troponin T C-Reactive Protein Total Protein Albumin Prealbumin Triglycerides Cholesterol LDL Cholesterol Direct HDL Cholesterol Urine pH Urine WBC (Auto) Urine Creatinine Urine Total Protein Fluid Total Protein Vancomycin Trough Rheumatoid Factor Complement C4 Miscellaneous Test Crossmatch 10/20/16 10/20/16 10/20/16 06:00 11:49 16:00 WBC 19.7 H RBC 2.51 L Hgb 7.7 L Hct 23.5 L MCV MCH MCHC RDW 17.5 H Plt Count Lymph % (Auto) [place] % (Auto) Lymph # [place] # Baso # Seg Neutrophils % Seg Neuts % (Manual) Lymphocytes % (Manual) Monocytes % (Manual) Eosinophils % (Manual) Basophils % (Manual) Nucleated RBC % Seg Neutrophils # Seg Neutrophils # Man Lymphocytes # (Manual) Monocytes # (Manual) Eosinophils # (Manual) PT INR Fibrinogen dRVVT Confirm Interp Factor V Activity POC ABG pH POC ABG pCO2 POC ABG pO2 ABG pO2 ABG HCO3 ABG Base Excess ABG Hemoglobin Oxyhemoglobin Sodium Potassium Chloride Carbon Dioxide BUN Creatinine Glucose POC Glucose 117 H Lactic Acid Calcium Phosphorus Magnesium Direct Bilirubin AST ALT Alkaline Phosphatase Lactate Dehydrogenase Troponin T C-Reactive Protein Total Protein Albumin Prealbumin Triglycerides Cholesterol LDL Cholesterol Direct HDL Cholesterol Urine pH Urine WBC (Auto) Urine Creatinine Urine Total Protein Fluid Total Protein Vancomycin Trough Rheumatoid Factor Complement C4 Miscellaneous Test Flexitest 1 H Crossmatch 10/20/16 10/20/16 10/21/16 18:36 23:39 04:00 WBC RBC Hgb Hct MCV MCH MCHC RDW Plt Count Lymph % (Auto) [place] % (Auto) Lymph # [place] # Baso # Seg Neutrophils % Seg Neuts % (Manual) Lymphocytes % (Manual) Monocytes % (Manual) Eosinophils % (Manual) Basophils % (Manual) Nucleated RBC % Seg Neutrophils # Seg Neutrophils # Man Lymphocytes # (Manual) Monocytes # (Manual) Eosinophils # (Manual) PT INR Fibrinogen dRVVT Confirm Interp Factor V Activity POC ABG pH POC ABG pCO2 POC ABG pO2 ABG pO2 ABG HCO3 ABG Base Excess ABG Hemoglobin Oxyhemoglobin Sodium Potassium 5.4 H D Chloride Carbon Dioxide 15 L BUN 110 H Creatinine 3.0 H Glucose POC Glucose 127 H 114 H Lactic Acid Calcium Phosphorus Magnesium Direct Bilirubin AST ALT Alkaline Phosphatase Lactate Dehydrogenase Troponin T C-Reactive Protein Total Protein Albumin Prealbumin Triglycerides Cholesterol LDL Cholesterol Direct HDL Cholesterol Urine pH Urine WBC (Auto) Urine Creatinine Urine Total Protein Fluid Total Protein Vancomycin Trough Rheumatoid Factor Complement C4 Miscellaneous Test Crossmatch 10/21/16 10/21/16 10/22/16 05:54 23:46 05:18 WBC RBC Hgb Hct MCV MCH MCHC RDW Plt Count Lymph % (Auto) [place] % (Auto) Lymph # [place] # Baso # Seg Neutrophils % Seg Neuts % (Manual) Lymphocytes % (Manual) Monocytes % (Manual) Eosinophils % (Manual) Basophils % (Manual) Nucleated RBC % Seg Neutrophils # Seg Neutrophils # Man Lymphocytes # (Manual) Monocytes # (Manual) Eosinophils # (Manual) PT INR Fibrinogen dRVVT Confirm Interp Factor V Activity POC ABG pH POC ABG pCO2 POC ABG pO2 ABG pO2 ABG HCO3 ABG Base Excess ABG Hemoglobin Oxyhemoglobin Sodium Potassium Chloride Carbon Dioxide BUN Creatinine Glucose POC Glucose 119 H 108 H 109 H Lactic Acid Calcium Phosphorus Magnesium Direct Bilirubin AST ALT Alkaline Phosphatase Lactate Dehydrogenase Troponin T C-Reactive Protein Total Protein Albumin Prealbumin Triglycerides Cholesterol LDL Cholesterol Direct HDL Cholesterol Urine pH Urine WBC (Auto) Urine Creatinine Urine Total Protein Fluid Total Protein Vancomycin Trough Rheumatoid Factor Complement C4 Miscellaneous Test Crossmatch 10/22/16 10/22/16 10/22/16 06:40 06:40 06:40 WBC 14.0 H RBC 2.03 L Hgb 7.0 L Hct 20.5 L MCV 98 H MCH 34 H MCHC 35 H RDW 17.8 H Plt Count Lymph % (Auto) [place] % (Auto) 9.9 H Lymph # [place] # 1.4 H Baso # 0.2 H Seg Neutrophils % 72.0 H Seg Neuts % (Manual) Lymphocytes % (Manual) Monocytes % (Manual) Eosinophils % (Manual) Basophils % (Manual) Nucleated RBC % Seg Neutrophils # 10.0 H Seg Neutrophils # Man Lymphocytes # (Manual) Monocytes # (Manual) Eosinophils # (Manual) PT INR Fibrinogen dRVVT Confirm Interp Factor V Activity POC ABG pH POC ABG pCO2 POC ABG pO2 ABG pO2 ABG HCO3 ABG Base Excess ABG Hemoglobin Oxyhemoglobin Sodium 130 L D Potassium Chloride 92.4 L Carbon Dioxide 20 L BUN 50 H Creatinine 1.6 H Glucose 589 H* POC Glucose Lactic Acid Calcium 7.8 L D Phosphorus Magnesium 1.60 L Direct Bilirubin AST ALT Alkaline Phosphatase Lactate Dehydrogenase Troponin T C-Reactive Protein Total Protein Albumin Prealbumin Triglycerides Cholesterol LDL Cholesterol Direct HDL Cholesterol Urine pH Urine WBC (Auto) Urine Creatinine Urine Total Protein Fluid Total Protein Vancomycin Trough Rheumatoid Factor Complement C4 Miscellaneous Test Crossmatch 10/22/16 10/22/16 10/22/16 11:39 16:44 23:36 WBC RBC Hgb Hct MCV MCH MCHC RDW Plt Count Lymph % (Auto) [place] % (Auto) Lymph # [place] # Baso # Seg Neutrophils % Seg Neuts % (Manual) Lymphocytes % (Manual) Monocytes % (Manual) Eosinophils % (Manual) Basophils % (Manual) Nucleated RBC % Seg Neutrophils # Seg Neutrophils # Man Lymphocytes # (Manual) Monocytes # (Manual) Eosinophils # (Manual) PT INR Fibrinogen dRVVT Confirm Interp Factor V Activity POC ABG pH POC ABG pCO2 POC ABG pO2 ABG pO2 ABG HCO3 ABG Base Excess ABG Hemoglobin Oxyhemoglobin Sodium Potassium Chloride Carbon Dioxide BUN Creatinine Glucose POC Glucose 142 H 163 H 123 H Lactic Acid Calcium Phosphorus Magnesium Direct Bilirubin AST ALT Alkaline Phosphatase Lactate Dehydrogenase Troponin T C-Reactive Protein Total Protein Albumin Prealbumin Triglycerides Cholesterol LDL Cholesterol Direct HDL Cholesterol Urine pH Urine WBC (Auto) Urine Creatinine Urine Total Protein Fluid Total Protein Vancomycin Trough Rheumatoid Factor Complement C4 Miscellaneous Test Crossmatch 10/23/16 10/23/16 10/23/16 04:58 06:00 12:12 WBC RBC Hgb Hct MCV MCH MCHC RDW Plt Count Lymph % (Auto) [place] % (Auto) Lymph # [place] # Baso # Seg Neutrophils % Seg Neuts % (Manual) Lymphocytes % (Manual) Monocytes % (Manual) Eosinophils % (Manual) Basophils % (Manual) Nucleated RBC % Seg Neutrophils # Seg Neutrophils # Man Lymphocytes # (Manual) Monocytes # (Manual) Eosinophils # (Manual) PT INR Fibrinogen dRVVT Confirm Interp Factor V Activity POC ABG pH POC ABG pCO2 POC ABG pO2 ABG pO2 ABG HCO3 ABG Base Excess ABG Hemoglobin Oxyhemoglobin Sodium 133 L Potassium 3.5 L Chloride 96.1 L Carbon Dioxide 18 L BUN 76 H Creatinine 2.1 H Glucose POC Glucose 133 H 138 H Lactic Acid Calcium 8.3 L Phosphorus Magnesium Direct Bilirubin AST ALT Alkaline Phosphatase Lactate Dehydrogenase Troponin T C-Reactive Protein Total Protein Albumin Prealbumin Triglycerides Cholesterol LDL Cholesterol Direct HDL Cholesterol Urine pH Urine WBC (Auto) Urine Creatinine Urine Total Protein Fluid Total Protein Vancomycin Trough Rheumatoid Factor Complement C4 Miscellaneous Test Crossmatch 10/23/16 10/23/16 10/24/16 16:53 23:37 04:00 WBC RBC Hgb Hct MCV MCH MCHC RDW Plt Count Lymph % (Auto) [place] % (Auto) Lymph # [place] # Baso # Seg Neutrophils % Seg Neuts % (Manual) Lymphocytes % (Manual) Monocytes % (Manual) Eosinophils % (Manual) Basophils % (Manual) Nucleated RBC % Seg Neutrophils # Seg Neutrophils # Man Lymphocytes # (Manual) Monocytes # (Manual) Eosinophils # (Manual) PT INR Fibrinogen dRVVT Confirm Interp Factor V Activity POC ABG pH POC ABG pCO2 POC ABG pO2 ABG pO2 ABG HCO3 ABG Base Excess ABG Hemoglobin Oxyhemoglobin Sodium 131 L Potassium Chloride 94.5 L Carbon Dioxide 19 L BUN 97 H Creatinine 2.6 H Glucose 110 H POC Glucose 125 H 123 H Lactic Acid Calcium 8.3 L Phosphorus Magnesium Direct Bilirubin AST ALT Alkaline Phosphatase Lactate Dehydrogenase Troponin T C-Reactive Protein Total Protein Albumin Prealbumin Triglycerides Cholesterol LDL Cholesterol Direct HDL Cholesterol Urine pH Urine WBC (Auto) Urine Creatinine Urine Total Protein Fluid Total Protein Vancomycin Trough Rheumatoid Factor Complement C4 Miscellaneous Test Crossmatch 10/24/16 10/24/16 10/24/16 07:49 11:39 17:52 WBC RBC Hgb 6.0 L Hct 19.7 L* MCV MCH MCHC RDW Plt Count Lymph % (Auto) [place] % (Auto) Lymph # [place] # Baso # Seg Neutrophils % Seg Neuts % (Manual) Lymphocytes % (Manual) Monocytes % (Manual) Eosinophils % (Manual) Basophils % (Manual) Nucleated RBC % Seg Neutrophils # Seg Neutrophils # Man Lymphocytes # (Manual) Monocytes # (Manual) Eosinophils # (Manual) PT INR Fibrinogen dRVVT Confirm Interp Factor V Activity POC ABG pH POC ABG pCO2 POC ABG pO2 ABG pO2 ABG HCO3 ABG Base Excess ABG Hemoglobin Oxyhemoglobin Sodium Potassium Chloride Carbon Dioxide BUN Creatinine Glucose POC Glucose 106 H 158 H Lactic Acid Calcium Phosphorus Magnesium Direct Bilirubin AST ALT Alkaline Phosphatase Lactate Dehydrogenase Troponin T C-Reactive Protein Total Protein Albumin Prealbumin Triglycerides Cholesterol LDL Cholesterol Direct HDL Cholesterol Urine pH Urine WBC (Auto) Urine Creatinine Urine Total Protein Fluid Total Protein Vancomycin Trough Rheumatoid Factor Complement C4 Miscellaneous Test Crossmatch 10/24/16 10/24/16 10/24/16 20:00 22:27 Unknown WBC RBC Hgb 9.4 L D Hct 27.5 L D MCV MCH MCHC RDW Plt Count Lymph % (Auto) [place] % (Auto) Lymph # [place] # Baso # Seg Neutrophils % Seg Neuts % (Manual) Lymphocytes % (Manual) Monocytes % (Manual) Eosinophils % (Manual) Basophils % (Manual) Nucleated RBC % Seg Neutrophils # Seg Neutrophils # Man Lymphocytes # (Manual) Monocytes # (Manual) Eosinophils # (Manual) PT INR Fibrinogen dRVVT Confirm Interp Factor V Activity POC ABG pH POC ABG pCO2 POC ABG pO2 ABG pO2 ABG HCO3 ABG Base Excess ABG Hemoglobin Oxyhemoglobin Sodium Potassium Chloride Carbon Dioxide BUN Creatinine Glucose POC Glucose 125 H Lactic Acid Calcium Phosphorus Magnesium Direct Bilirubin AST ALT Alkaline Phosphatase Lactate Dehydrogenase Troponin T C-Reactive Protein Total Protein Albumin Prealbumin Triglycerides Cholesterol LDL Cholesterol Direct HDL Cholesterol Urine pH Urine WBC (Auto) Urine Creatinine Urine Total Protein Fluid Total Protein Vancomycin Trough Rheumatoid Factor Complement C4 Miscellaneous Test Crossmatch See Detail 10/25/16 10/25/16 10/25/16 04:00 04:00 04:00 WBC 14.2 H RBC 2.98 L Hgb 9.0 L Hct 26.2 L MCV MCH MCHC RDW 16.6 H Plt Count Lymph % (Auto) [place] % (Auto) 10.7 H Lymph # [place] # 1.5 H Baso # Seg Neutrophils % 73.6 H Seg Neuts % (Manual) Lymphocytes % (Manual) Monocytes % (Manual) Eosinophils % (Manual) Basophils % (Manual) Nucleated RBC % Seg Neutrophils # 10.5 H Seg Neutrophils # Man Lymphocytes # (Manual) Monocytes # (Manual) Eosinophils # (Manual) PT INR Fibrinogen dRVVT Confirm Interp Factor V Activity POC ABG pH POC ABG pCO2 POC ABG pO2 ABG pO2 ABG HCO3 ABG Base Excess ABG Hemoglobin Oxyhemoglobin Sodium 132 L Potassium Chloride 94.7 L Carbon Dioxide BUN 51 H Creatinine 1.6 H Glucose 130 H POC Glucose Lactic Acid Calcium 8.3 L Phosphorus 1.60 L D Magnesium Direct Bilirubin AST ALT Alkaline Phosphatase Lactate Dehydrogenase Troponin T C-Reactive Protein Total Protein Albumin Prealbumin Triglycerides Cholesterol LDL Cholesterol Direct HDL Cholesterol Urine pH Urine WBC (Auto) Urine Creatinine Urine Total Protein Fluid Total Protein Vancomycin Trough Rheumatoid Factor Complement C4 Miscellaneous Test Crossmatch 10/25/16 10/25/16 10/25/16 04:32 11:48 17:22 WBC RBC Hgb Hct MCV MCH MCHC RDW Plt Count Lymph % (Auto) [place] % (Auto) Lymph # [place] # Baso # Seg Neutrophils % Seg Neuts % (Manual) Lymphocytes % (Manual) Monocytes % (Manual) Eosinophils % (Manual) Basophils % (Manual) Nucleated RBC % Seg Neutrophils # Seg Neutrophils # Man Lymphocytes # (Manual) Monocytes # (Manual) Eosinophils # (Manual) PT INR Fibrinogen dRVVT Confirm Interp Factor V Activity POC ABG pH POC ABG pCO2 POC ABG pO2 ABG pO2 ABG HCO3 ABG Base Excess ABG Hemoglobin Oxyhemoglobin Sodium Potassium Chloride Carbon Dioxide BUN Creatinine Glucose POC Glucose 124 H 171 H 120 H Lactic Acid Calcium Phosphorus Magnesium Direct Bilirubin AST ALT Alkaline Phosphatase Lactate Dehydrogenase Troponin T C-Reactive Protein Total Protein Albumin Prealbumin Triglycerides Cholesterol LDL Cholesterol Direct HDL Cholesterol Urine pH Urine WBC (Auto) Urine Creatinine Urine Total Protein Fluid Total Protein Vancomycin Trough Rheumatoid Factor Complement C4 Miscellaneous Test Crossmatch 10/26/16 10/26/16 10/26/16 04:54 07:06 07:06 WBC 16.9 H RBC 3.06 L Hgb 9.1 L Hct 26.9 L MCV MCH MCHC RDW 16.9 H Plt Count Lymph % (Auto) [place] % (Auto) Lymph # [place] # Baso # Seg Neutrophils % Seg Neuts % (Manual) 71.0 H Lymphocytes % (Manual) 5.0 L Monocytes % (Manual) 12.0 H Eosinophils % (Manual) Basophils % (Manual) Nucleated RBC % Seg Neutrophils # Seg Neutrophils # Man 12.0 H Lymphocytes # (Manual) 0.8 L Monocytes # (Manual) 2.0 H Eosinophils # (Manual) PT INR Fibrinogen dRVVT Confirm Interp Factor V Activity POC ABG pH POC ABG pCO2 POC ABG pO2 ABG pO2 ABG HCO3 ABG Base Excess ABG Hemoglobin Oxyhemoglobin Sodium 135 L Potassium Chloride 97.1 L Carbon Dioxide BUN 73 H Creatinine 2.2 H Glucose 117 H POC Glucose 123 H Lactic Acid Calcium Phosphorus 1.70 L Magnesium Direct Bilirubin AST ALT Alkaline Phosphatase Lactate Dehydrogenase Troponin T C-Reactive Protein Total Protein Albumin Prealbumin Triglycerides Cholesterol LDL Cholesterol Direct HDL Cholesterol Urine pH Urine WBC (Auto) Urine Creatinine Urine Total Protein Fluid Total Protein Vancomycin Trough Rheumatoid Factor Complement C4 Miscellaneous Test Crossmatch 10/26/16 10/26/16 10/26/16 12:12 17:29 23:42 WBC RBC Hgb Hct MCV MCH MCHC RDW Plt Count Lymph % (Auto) [place] % (Auto) Lymph # [place] # Baso # Seg Neutrophils % Seg Neuts % (Manual) Lymphocytes % (Manual) Monocytes % (Manual) Eosinophils % (Manual) Basophils % (Manual) Nucleated RBC % Seg Neutrophils # Seg Neutrophils # Man Lymphocytes # (Manual) Monocytes # (Manual) Eosinophils # (Manual) PT INR Fibrinogen dRVVT Confirm Interp Factor V Activity POC ABG pH POC ABG pCO2 POC ABG pO2 ABG pO2 ABG HCO3 ABG Base Excess ABG Hemoglobin Oxyhemoglobin Sodium Potassium Chloride Carbon Dioxide BUN Creatinine Glucose POC Glucose 126 H 161 H 118 H Lactic Acid Calcium Phosphorus Magnesium Direct Bilirubin AST ALT Alkaline Phosphatase Lactate Dehydrogenase Troponin T C-Reactive Protein Total Protein Albumin Prealbumin Triglycerides Cholesterol LDL Cholesterol Direct HDL Cholesterol Urine pH Urine WBC (Auto) Urine Creatinine Urine Total Protein Fluid Total Protein Vancomycin Trough Rheumatoid Factor Complement C4 Miscellaneous Test Crossmatch 10/27/16 10/27/16 10/27/16 05:03 06:30 06:30 WBC 13.9 H RBC 3.09 L Hgb 9.2 L Hct 27.5 L MCV MCH MCHC RDW 17.0 H Plt Count Lymph % (Auto) [place] % (Auto) Lymph # [place] # Baso # Seg Neutrophils % Seg Neuts % (Manual) 78.0 H Lymphocytes % (Manual) Monocytes % (Manual) Eosinophils % (Manual) Basophils % (Manual) Nucleated RBC % 2.0 H Seg Neutrophils # Seg Neutrophils # Man 10.8 H Lymphocytes # (Manual) Monocytes # (Manual) 1.0 H Eosinophils # (Manual) PT INR Fibrinogen dRVVT Confirm Interp Factor V Activity POC ABG pH POC ABG pCO2 POC ABG pO2 ABG pO2 ABG HCO3 ABG Base Excess ABG Hemoglobin Oxyhemoglobin Sodium Potassium Chloride Carbon Dioxide BUN 40 H Creatinine 1.5 H Glucose 135 H POC Glucose 107 H Lactic Acid Calcium 8.3 L Phosphorus 1.30 L D Magnesium Direct Bilirubin AST ALT Alkaline Phosphatase Lactate Dehydrogenase Troponin T C-Reactive Protein Total Protein Albumin Prealbumin Triglycerides Cholesterol LDL Cholesterol Direct HDL Cholesterol Urine pH Urine WBC (Auto) Urine Creatinine Urine Total Protein Fluid Total Protein Vancomycin Trough Rheumatoid Factor Complement C4 Miscellaneous Test Crossmatch 10/27/16 10/27/16 10/27/16 13:27 18:07 23:40 WBC RBC Hgb Hct MCV MCH MCHC RDW Plt Count Lymph % (Auto) [place] % (Auto) Lymph # [place] # Baso # Seg Neutrophils % Seg Neuts % (Manual) Lymphocytes % (Manual) Monocytes % (Manual) Eosinophils % (Manual) Basophils % (Manual) Nucleated RBC % Seg Neutrophils # Seg Neutrophils # Man Lymphocytes # (Manual) Monocytes # (Manual) Eosinophils # (Manual) PT INR Fibrinogen dRVVT Confirm Interp Factor V Activity POC ABG pH POC ABG pCO2 POC ABG pO2 ABG pO2 ABG HCO3 ABG Base Excess ABG Hemoglobin Oxyhemoglobin Sodium Potassium Chloride Carbon Dioxide BUN Creatinine Glucose POC Glucose 117 H 121 H 118 H Lactic Acid Calcium Phosphorus Magnesium Direct Bilirubin AST ALT Alkaline Phosphatase Lactate Dehydrogenase Troponin T C-Reactive Protein Total Protein Albumin Prealbumin Triglycerides Cholesterol LDL Cholesterol Direct HDL Cholesterol Urine pH Urine WBC (Auto) Urine Creatinine Urine Total Protein Fluid Total Protein Vancomycin Trough Rheumatoid Factor Complement C4 Miscellaneous Test Crossmatch 10/28/16 10/28/16 10/28/16 05:48 06:45 06:45 WBC 14.7 H RBC 3.05 L Hgb 9.0 L Hct 26.9 L MCV MCH MCHC RDW 16.8 H Plt Count Lymph % (Auto) 8.2 L [place] % (Auto) 8.4 H Lymph # [place] # 1.2 H Baso # Seg Neutrophils % 81.9 H Seg Neuts % (Manual) Lymphocytes % (Manual) Monocytes % (Manual) Eosinophils % (Manual) Basophils % (Manual) Nucleated RBC % Seg Neutrophils # 12.1 H Seg Neutrophils # Man Lymphocytes # (Manual) Monocytes # (Manual) Eosinophils # (Manual) PT INR Fibrinogen dRVVT Confirm Interp Factor V Activity POC ABG pH POC ABG pCO2 POC ABG pO2 ABG pO2 ABG HCO3 ABG Base Excess ABG Hemoglobin Oxyhemoglobin Sodium Potassium Chloride Carbon Dioxide BUN 60 H Creatinine 1.9 H Glucose 120 H POC Glucose 114 H Lactic Acid Calcium Phosphorus Magnesium Direct Bilirubin AST ALT Alkaline Phosphatase Lactate Dehydrogenase Troponin T C-Reactive Protein Total Protein Albumin Prealbumin Triglycerides Cholesterol LDL Cholesterol Direct HDL Cholesterol Urine pH Urine WBC (Auto) Urine Creatinine Urine Total Protein Fluid Total Protein Vancomycin Trough Rheumatoid Factor Complement C4 Miscellaneous Test Crossmatch 10/28/16 10/28/16 10/29/16 17:08 23:50 05:10 WBC RBC Hgb Hct MCV MCH MCHC RDW Plt Count Lymph % (Auto) [place] % (Auto) Lymph # [place] # Baso # Seg Neutrophils % Seg Neuts % (Manual) Lymphocytes % (Manual) Monocytes % (Manual) Eosinophils % (Manual) Basophils % (Manual) Nucleated RBC % Seg Neutrophils # Seg Neutrophils # Man Lymphocytes # (Manual) Monocytes # (Manual) Eosinophils # (Manual) PT INR Fibrinogen dRVVT Confirm Interp Factor V Activity POC ABG pH POC ABG pCO2 POC ABG pO2 ABG pO2 ABG HCO3 ABG Base Excess ABG Hemoglobin Oxyhemoglobin Sodium Potassium Chloride Carbon Dioxide BUN Creatinine Glucose POC Glucose 109 H 110 H 124 H Lactic Acid Calcium Phosphorus Magnesium Direct Bilirubin AST ALT Alkaline Phosphatase Lactate Dehydrogenase Troponin T C-Reactive Protein Total Protein Albumin Prealbumin Triglycerides Cholesterol LDL Cholesterol Direct HDL Cholesterol Urine pH Urine WBC (Auto) Urine Creatinine Urine Total Protein Fluid Total Protein Vancomycin Trough Rheumatoid Factor Complement C4 Miscellaneous Test Crossmatch 10/29/16 10/29/16 10/29/16 07:45 07:45 12:19 WBC 14.7 H RBC 3.15 L Hgb 9.3 L Hct 28.9 L MCV MCH MCHC RDW 17.0 H Plt Count Lymph % (Auto) 11.9 L [place] % (Auto) 8.6 H Lymph # [place] # 1.3 H Baso # Seg Neutrophils % 78.1 H Seg Neuts % (Manual) Lymphocytes % (Manual) Monocytes % (Manual) Eosinophils % (Manual) Basophils % (Manual) Nucleated RBC % Seg Neutrophils # 11.4 H Seg Neutrophils # Man Lymphocytes # (Manual) Monocytes # (Manual) Eosinophils # (Manual) PT INR Fibrinogen dRVVT Confirm Interp Factor V Activity POC ABG pH POC ABG pCO2 POC ABG pO2 ABG pO2 ABG HCO3 ABG Base Excess ABG Hemoglobin Oxyhemoglobin Sodium Potassium 5.1 H Chloride Carbon Dioxide 19 L BUN 78 H Creatinine 2.2 H Glucose 116 H POC Glucose 118 H Lactic Acid Calcium Phosphorus Magnesium Direct Bilirubin AST ALT Alkaline Phosphatase Lactate Dehydrogenase Troponin T C-Reactive Protein Total Protein Albumin Prealbumin Triglycerides Cholesterol LDL Cholesterol Direct HDL Cholesterol Urine pH Urine WBC (Auto) Urine Creatinine Urine Total Protein Fluid Total Protein Vancomycin Trough Rheumatoid Factor Complement C4 Miscellaneous Test Crossmatch 10/29/16 10/30/16 10/30/16 17:49 01:52 03:28 WBC RBC Hgb Hct MCV MCH MCHC RDW Plt Count Lymph % (Auto) [place] % (Auto) Lymph # [place] # Baso # Seg Neutrophils % Seg Neuts % (Manual) Lymphocytes % (Manual) Monocytes % (Manual) Eosinophils % (Manual) Basophils % (Manual) Nucleated RBC % Seg Neutrophils # Seg Neutrophils # Man Lymphocytes # (Manual) Monocytes # (Manual) Eosinophils # (Manual) PT INR Fibrinogen dRVVT Confirm Interp Factor V Activity POC ABG pH POC ABG pCO2 POC ABG pO2 ABG pO2 ABG HCO3 ABG Base Excess ABG Hemoglobin Oxyhemoglobin Sodium Potassium 5.4 H Chloride 97.5 L Carbon Dioxide 19 L BUN 90 H Creatinine 2.5 H Glucose POC Glucose 120 H 129 H Lactic Acid Calcium Phosphorus 5.20 H Magnesium Direct Bilirubin AST ALT Alkaline Phosphatase Lactate Dehydrogenase Troponin T C-Reactive Protein Total Protein Albumin Prealbumin Triglycerides Cholesterol LDL Cholesterol Direct HDL Cholesterol Urine pH Urine WBC (Auto) Urine Creatinine Urine Total Protein Fluid Total Protein Vancomycin Trough Rheumatoid Factor Complement C4 Miscellaneous Test Crossmatch 10/30/16 10/30/16 10/30/16 03:28 08:19 08:19 WBC 11.6 H 15.9 H RBC 2.75 L 2.82 L Hgb 7.9 L 8.3 L Hct 24.2 L 25.2 L MCV MCH MCHC RDW 16.7 H 17.2 H Plt Count Lymph % (Auto) [place] % (Auto) 9.8 H Lymph # [place] # 1.1 H Baso # Seg Neutrophils % 74.2 H Seg Neuts % (Manual) Lymphocytes % (Manual) Monocytes % (Manual) Eosinophils % (Manual) Basophils % (Manual) Nucleated RBC % Seg Neutrophils # 8.6 H Seg Neutrophils # Man Lymphocytes # (Manual) Monocytes # (Manual) Eosinophils # (Manual) PT INR Fibrinogen dRVVT Confirm Interp Factor V Activity POC ABG pH POC ABG pCO2 POC ABG pO2 ABG pO2 ABG HCO3 ABG Base Excess ABG Hemoglobin Oxyhemoglobin Sodium Potassium 5.3 H Chloride 97.4 L Carbon Dioxide 19 L BUN 93 H Creatinine 2.6 H Glucose POC Glucose Lactic Acid Calcium Phosphorus Magnesium Direct Bilirubin AST ALT Alkaline Phosphatase Lactate Dehydrogenase Troponin T C-Reactive Protein Total Protein Albumin Prealbumin Triglycerides Cholesterol LDL Cholesterol Direct HDL Cholesterol Urine pH Urine WBC (Auto) Urine Creatinine Urine Total Protein Fluid Total Protein Vancomycin Trough Rheumatoid Factor Complement C4 Miscellaneous Test Crossmatch 10/30/16 10/30/16 10/31/16 17:11 23:56 00:40 WBC RBC Hgb Hct MCV MCH MCHC RDW Plt Count Lymph % (Auto) [place] % (Auto) Lymph # [place] # Baso # Seg Neutrophils % Seg Neuts % (Manual) Lymphocytes % (Manual) Monocytes % (Manual) Eosinophils % (Manual) Basophils % (Manual) Nucleated RBC % Seg Neutrophils # Seg Neutrophils # Man Lymphocytes # (Manual) Monocytes # (Manual) Eosinophils # (Manual) PT INR Fibrinogen dRVVT Confirm Interp Factor V Activity POC ABG pH POC ABG pCO2 POC ABG pO2 ABG pO2 ABG HCO3 ABG Base Excess ABG Hemoglobin Oxyhemoglobin Sodium Potassium Chloride Carbon Dioxide BUN Creatinine Glucose POC Glucose 106 H 117 H 120 H Lactic Acid Calcium Phosphorus Magnesium Direct Bilirubin AST ALT Alkaline Phosphatase Lactate Dehydrogenase Troponin T C-Reactive Protein Total Protein Albumin Prealbumin Triglycerides Cholesterol LDL Cholesterol Direct HDL Cholesterol Urine pH Urine WBC (Auto) Urine Creatinine Urine Total Protein Fluid Total Protein Vancomycin Trough Rheumatoid Factor Complement C4 Miscellaneous Test Crossmatch 10/31/16 10/31/16 10/31/16 05:43 07:15 07:15 WBC 12.1 H RBC 2.63 L Hgb 7.7 L Hct 23.3 L MCV MCH MCHC RDW 16.7 H Plt Count Lymph % (Auto) 11.7 L [place] % (Auto) 7.7 H Lymph # [place] # 0.9 H Baso # Seg Neutrophils % 78.0 H Seg Neuts % (Manual) Lymphocytes % (Manual) Monocytes % (Manual) Eosinophils % (Manual) Basophils % (Manual) Nucleated RBC % Seg Neutrophils # 9.4 H Seg Neutrophils # Man Lymphocytes # (Manual) Monocytes # (Manual) Eosinophils # (Manual) PT INR Fibrinogen dRVVT Confirm Interp Factor V Activity POC ABG pH POC ABG pCO2 POC ABG pO2 ABG pO2 ABG HCO3 ABG Base Excess ABG Hemoglobin Oxyhemoglobin Sodium Potassium Chloride 96.4 L Carbon Dioxide 21 L BUN 99 H Creatinine 2.6 H Glucose 144 H POC Glucose 125 H Lactic Acid Calcium Phosphorus 4.80 H Magnesium Direct Bilirubin AST ALT Alkaline Phosphatase Lactate Dehydrogenase Troponin T C-Reactive Protein Total Protein Albumin Prealbumin Triglycerides Cholesterol LDL Cholesterol Direct HDL Cholesterol Urine pH Urine WBC (Auto) Urine Creatinine Urine Total Protein Fluid Total Protein Vancomycin Trough Rheumatoid Factor Complement C4 Miscellaneous Test Crossmatch 10/31/16 10/31/16 11/01/16 11:46 18:34 00:20 WBC RBC Hgb Hct MCV MCH MCHC RDW Plt Count Lymph % (Auto) [place] % (Auto) Lymph # [place] # Baso # Seg Neutrophils % Seg Neuts % (Manual) Lymphocytes % (Manual) Monocytes % (Manual) Eosinophils % (Manual) Basophils % (Manual) Nucleated RBC % Seg Neutrophils # Seg Neutrophils # Man Lymphocytes # (Manual) Monocytes # (Manual) Eosinophils # (Manual) PT INR Fibrinogen dRVVT Confirm Interp Factor V Activity POC ABG pH POC ABG pCO2 POC ABG pO2 ABG pO2 ABG HCO3 ABG Base Excess ABG Hemoglobin Oxyhemoglobin Sodium Potassium Chloride Carbon Dioxide BUN Creatinine Glucose POC Glucose 159 H 140 H 132 H Lactic Acid Calcium Phosphorus Magnesium Direct Bilirubin AST ALT Alkaline Phosphatase Lactate Dehydrogenase Troponin T C-Reactive Protein Total Protein Albumin Prealbumin Triglycerides Cholesterol LDL Cholesterol Direct HDL Cholesterol Urine pH Urine WBC (Auto) Urine Creatinine Urine Total Protein Fluid Total Protein Vancomycin Trough Rheumatoid Factor Complement C4 Miscellaneous Test Crossmatch 11/01/16 11/01/16 11/01/16 04:55 04:55 06:11 WBC 11.2 H RBC 2.68 L Hgb 7.5 L Hct 23.7 L MCV MCH MCHC RDW 16.1 H Plt Count Lymph % (Auto) [place] % (Auto) 9.8 H Lymph # [place] # 1.1 H Baso # Seg Neutrophils % 70.8 H Seg Neuts % (Manual) Lymphocytes % (Manual) Monocytes % (Manual) Eosinophils % (Manual) Basophils % (Manual) Nucleated RBC % Seg Neutrophils # 7.9 H Seg Neutrophils # Man Lymphocytes # (Manual) Monocytes # (Manual) Eosinophils # (Manual) PT INR Fibrinogen dRVVT Confirm Interp Factor V Activity POC ABG pH POC ABG pCO2 POC ABG pO2 ABG pO2 ABG HCO3 ABG Base Excess ABG Hemoglobin Oxyhemoglobin Sodium Potassium 3.3 L D Chloride Carbon Dioxide BUN 61 H Creatinine 1.9 H Glucose 114 H POC Glucose 115 H Lactic Acid Calcium Phosphorus 1.80 L D Magnesium Direct Bilirubin AST ALT Alkaline Phosphatase Lactate Dehydrogenase Troponin T C-Reactive Protein Total Protein Albumin Prealbumin Triglycerides Cholesterol LDL Cholesterol Direct HDL Cholesterol Urine pH Urine WBC (Auto) Urine Creatinine Urine Total Protein Fluid Total Protein Vancomycin Trough Rheumatoid Factor Complement C4 Miscellaneous Test Crossmatch 11/01/16 11/01/16 11/01/16 12:29 18:23 23:58 WBC RBC Hgb Hct MCV MCH MCHC RDW Plt Count Lymph % (Auto) [place] % (Auto) Lymph # [place] # Baso # Seg Neutrophils % Seg Neuts % (Manual) Lymphocytes % (Manual) Monocytes % (Manual) Eosinophils % (Manual) Basophils % (Manual) Nucleated RBC % Seg Neutrophils # Seg Neutrophils # Man Lymphocytes # (Manual) Monocytes # (Manual) Eosinophils # (Manual) PT INR Fibrinogen dRVVT Confirm Interp Factor V Activity POC ABG pH POC ABG pCO2 POC ABG pO2 ABG pO2 ABG HCO3 ABG Base Excess ABG Hemoglobin Oxyhemoglobin Sodium Potassium Chloride Carbon Dioxide BUN Creatinine Glucose POC Glucose 142 H 143 H 128 H Lactic Acid Calcium Phosphorus Magnesium Direct Bilirubin AST ALT Alkaline Phosphatase Lactate Dehydrogenase Troponin T C-Reactive Protein Total Protein Albumin Prealbumin Triglycerides Cholesterol LDL Cholesterol Direct HDL Cholesterol Urine pH Urine WBC (Auto) Urine Creatinine Urine Total Protein Fluid Total Protein Vancomycin Trough Rheumatoid Factor Complement C4 Miscellaneous Test Crossmatch 11/02/16 11/02/16 11/02/16 04:16 05:29 11:58 WBC RBC Hgb Hct MCV MCH MCHC RDW Plt Count Lymph % (Auto) [place] % (Auto) Lymph # [place] # Baso # Seg Neutrophils % Seg Neuts % (Manual) Lymphocytes % (Manual) Monocytes % (Manual) Eosinophils % (Manual) Basophils % (Manual) Nucleated RBC % Seg Neutrophils # Seg Neutrophils # Man Lymphocytes # (Manual) Monocytes # (Manual) Eosinophils # (Manual) PT INR Fibrinogen dRVVT Confirm Interp Factor V Activity POC ABG pH POC ABG pCO2 POC ABG pO2 ABG pO2 ABG HCO3 ABG Base Excess ABG Hemoglobin Oxyhemoglobin Sodium Potassium 3.1 L Chloride Carbon Dioxide BUN 73 H Creatinine 2.3 H Glucose 112 H POC Glucose 135 H 149 H Lactic Acid Calcium Phosphorus Magnesium Direct Bilirubin AST ALT Alkaline Phosphatase Lactate Dehydrogenase Troponin T C-Reactive Protein Total Protein Albumin Prealbumin Triglycerides Cholesterol LDL Cholesterol Direct HDL Cholesterol Urine pH Urine WBC (Auto) Urine Creatinine Urine Total Protein Fluid Total Protein Vancomycin Trough Rheumatoid Factor Complement C4 Miscellaneous Test Crossmatch 11/02/16 11/02/16 11/03/16 17:42 22:54 06:00 WBC RBC Hgb Hct MCV MCH MCHC RDW Plt Count Lymph % (Auto) [place] % (Auto) Lymph # [place] # Baso # Seg Neutrophils % Seg Neuts % (Manual) Lymphocytes % (Manual) Monocytes % (Manual) Eosinophils % (Manual) Basophils % (Manual) Nucleated RBC % Seg Neutrophils # Seg Neutrophils # Man Lymphocytes # (Manual) Monocytes # (Manual) Eosinophils # (Manual) PT INR Fibrinogen dRVVT Confirm Interp Factor V Activity POC ABG pH POC ABG pCO2 POC ABG pO2 ABG pO2 ABG HCO3 ABG Base Excess ABG Hemoglobin Oxyhemoglobin Sodium Potassium Chloride 96.7 L Carbon Dioxide BUN 41 H Creatinine 1.5 H Glucose 145 H POC Glucose 182 H 115 H Lactic Acid Calcium Phosphorus 1.60 L D Magnesium 1.50 L Direct Bilirubin AST ALT Alkaline Phosphatase Lactate Dehydrogenase Troponin T C-Reactive Protein Total Protein Albumin Prealbumin Triglycerides Cholesterol LDL Cholesterol Direct HDL Cholesterol Urine pH Urine WBC (Auto) Urine Creatinine Urine Total Protein Fluid Total Protein Vancomycin Trough Rheumatoid Factor Complement C4 Miscellaneous Test Crossmatch 11/03/16 11/03/16 11/03/16 11:53 17:45 23:37 WBC RBC Hgb Hct MCV MCH MCHC RDW Plt Count Lymph % (Auto) [place] % (Auto) Lymph # [place] # Baso # Seg Neutrophils % Seg Neuts % (Manual) Lymphocytes % (Manual) Monocytes % (Manual) Eosinophils % (Manual) Basophils % (Manual) Nucleated RBC % Seg Neutrophils # Seg Neutrophils # Man Lymphocytes # (Manual) Monocytes # (Manual) Eosinophils # (Manual) PT INR Fibrinogen dRVVT Confirm Interp Factor V Activity POC ABG pH POC ABG pCO2 POC ABG pO2 ABG pO2 ABG HCO3 ABG Base Excess ABG Hemoglobin Oxyhemoglobin Sodium Potassium Chloride Carbon Dioxide BUN Creatinine Glucose POC Glucose 131 H 134 H 113 H Lactic Acid Calcium Phosphorus Magnesium Direct Bilirubin AST ALT Alkaline Phosphatase Lactate Dehydrogenase Troponin T C-Reactive Protein Total Protein Albumin Prealbumin Triglycerides Cholesterol LDL Cholesterol Direct HDL Cholesterol Urine pH Urine WBC (Auto) Urine Creatinine Urine Total Protein Fluid Total Protein Vancomycin Trough Rheumatoid Factor Complement C4 Miscellaneous Test Crossmatch 11/04/16 11/04/16 11/04/16 05:41 06:00 12:10 WBC RBC Hgb Hct MCV MCH MCHC RDW Plt Count Lymph % (Auto) [place] % (Auto) Lymph # [place] # Baso # Seg Neutrophils % Seg Neuts % (Manual) Lymphocytes % (Manual) Monocytes % (Manual) Eosinophils % (Manual) Basophils % (Manual) Nucleated RBC % Seg Neutrophils # Seg Neutrophils # Man Lymphocytes # (Manual) Monocytes # (Manual) Eosinophils # (Manual) PT INR Fibrinogen dRVVT Confirm Interp Factor V Activity POC ABG pH POC ABG pCO2 POC ABG pO2 ABG pO2 ABG HCO3 ABG Base Excess ABG Hemoglobin Oxyhemoglobin Sodium Potassium Chloride 96.7 L Carbon Dioxide BUN 52 H Creatinine 1.9 H Glucose 126 H POC Glucose 137 H 191 H Lactic Acid Calcium Phosphorus Magnesium Direct Bilirubin AST ALT Alkaline Phosphatase Lactate Dehydrogenase Troponin T C-Reactive Protein Total Protein Albumin Prealbumin Triglycerides Cholesterol LDL Cholesterol Direct HDL Cholesterol Urine pH Urine WBC (Auto) Urine Creatinine Urine Total Protein Fluid Total Protein Vancomycin Trough Rheumatoid Factor Complement C4 Miscellaneous Test Crossmatch 11/04/16 11/05/16 11/05/16 22:57 03:10 05:10 WBC RBC Hgb Hct MCV MCH MCHC RDW Plt Count Lymph % (Auto) [place] % (Auto) Lymph # [place] # Baso # Seg Neutrophils % Seg Neuts % (Manual) Lymphocytes % (Manual) Monocytes % (Manual) Eosinophils % (Manual) Basophils % (Manual) Nucleated RBC % Seg Neutrophils # Seg Neutrophils # Man Lymphocytes # (Manual) Monocytes # (Manual) Eosinophils # (Manual) PT INR Fibrinogen dRVVT Confirm Interp Factor V Activity POC ABG pH POC ABG pCO2 POC ABG pO2 ABG pO2 ABG HCO3 ABG Base Excess ABG Hemoglobin Oxyhemoglobin Sodium 136 L Potassium Chloride 97.2 L Carbon Dioxide BUN 32 H Creatinine 1.3 H Glucose 123 H POC Glucose 125 H 108 H Lactic Acid Calcium 7.8 L Phosphorus Magnesium Direct Bilirubin AST ALT Alkaline Phosphatase Lactate Dehydrogenase Troponin T C-Reactive Protein Total Protein Albumin Prealbumin Triglycerides Cholesterol LDL Cholesterol Direct HDL Cholesterol Urine pH Urine WBC (Auto) Urine Creatinine Urine Total Protein Fluid Total Protein Vancomycin Trough Rheumatoid Factor Complement C4 Miscellaneous Test Crossmatch 11/05/16 11/05/16 11/05/16 12:23 13:09 13:25 WBC RBC Hgb Hct MCV MCH MCHC RDW Plt Count Lymph % (Auto) [place] % (Auto) Lymph # [place] # Baso # Seg Neutrophils % Seg Neuts % (Manual) Lymphocytes % (Manual) Monocytes % (Manual) Eosinophils % (Manual) Basophils % (Manual) Nucleated RBC % Seg Neutrophils # Seg Neutrophils # Man Lymphocytes # (Manual) Monocytes # (Manual) Eosinophils # (Manual) PT INR Fibrinogen dRVVT Confirm Interp Factor V Activity POC ABG pH POC ABG pCO2 POC ABG pO2 ABG pO2 ABG HCO3 ABG Base Excess ABG Hemoglobin Oxyhemoglobin Sodium Potassium Chloride Carbon Dioxide BUN Creatinine Glucose POC Glucose 124 H Lactic Acid Calcium Phosphorus Magnesium Direct Bilirubin AST ALT Alkaline Phosphatase Lactate Dehydrogenase Troponin T C-Reactive Protein 11.40 H Total Protein Albumin Prealbumin Triglycerides Cholesterol LDL Cholesterol Direct HDL Cholesterol Urine pH 9.0 H Urine WBC (Auto) Urine Creatinine Urine Total Protein Fluid Total Protein Vancomycin Trough Rheumatoid Factor Complement C4 Miscellaneous Test Crossmatch 11/05/16 11/05/16 11/05/16 13:25 17:54 23:42 WBC RBC Hgb Hct MCV MCH MCHC RDW Plt Count Lymph % (Auto) [place] % (Auto) Lymph # [place] # Baso # Seg Neutrophils % Seg Neuts % (Manual) Lymphocytes % (Manual) Monocytes % (Manual) Eosinophils % (Manual) Basophils % (Manual) Nucleated RBC % Seg Neutrophils # Seg Neutrophils # Man Lymphocytes # (Manual) Monocytes # (Manual) Eosinophils # (Manual) PT INR Fibrinogen dRVVT Confirm Interp Factor V Activity POC ABG pH POC ABG pCO2 POC ABG pO2 ABG pO2 ABG HCO3 ABG Base Excess ABG Hemoglobin Oxyhemoglobin Sodium Potassium Chloride Carbon Dioxide BUN Creatinine Glucose POC Glucose 114 H 134 H Lactic Acid Calcium Phosphorus Magnesium Direct Bilirubin AST ALT Alkaline Phosphatase Lactate Dehydrogenase Troponin T C-Reactive Protein Total Protein Albumin Prealbumin Triglycerides Cholesterol LDL Cholesterol Direct HDL Cholesterol Urine pH Urine WBC (Auto) Urine Creatinine Urine Total Protein Fluid Total Protein Vancomycin Trough Rheumatoid Factor Complement C4 Miscellaneous Test Flexitest 1 H Crossmatch 11/06/16 11/06/16 11/06/16 04:56 06:25 06:25 WBC RBC 2.50 L Hgb 7.3 L Hct 22.5 L MCV MCH MCHC RDW 16.9 H Plt Count Lymph % (Auto) [place] % (Auto) 10.5 H Lymph # [place] # 1.1 H Baso # Seg Neutrophils % Seg Neuts % (Manual) Lymphocytes % (Manual) Monocytes % (Manual) Eosinophils % (Manual) Basophils % (Manual) Nucleated RBC % Seg Neutrophils # Seg Neutrophils # Man Lymphocytes # (Manual) Monocytes # (Manual) Eosinophils # (Manual) PT INR Fibrinogen dRVVT Confirm Interp Factor V Activity POC ABG pH POC ABG pCO2 POC ABG pO2 ABG pO2 ABG HCO3 ABG Base Excess ABG Hemoglobin Oxyhemoglobin Sodium Potassium 5.1 H Chloride 95.9 L Carbon Dioxide BUN 52 H Creatinine 1.8 H Glucose 117 H POC Glucose 120 H Lactic Acid Calcium Phosphorus Magnesium Direct Bilirubin AST 103 H ALT 77 H Alkaline Phosphatase 285 H Lactate Dehydrogenase Troponin T C-Reactive Protein Total Protein 6.2 L Albumin 1.8 L Prealbumin 0.180 L Triglycerides Cholesterol LDL Cholesterol Direct HDL Cholesterol Urine pH Urine WBC (Auto) Urine Creatinine Urine Total Protein Fluid Total Protein Vancomycin Trough Rheumatoid Factor Complement C4 Miscellaneous Test Crossmatch 11/06/16 11/06/16 11/06/16 11:56 17:14 23:52 WBC RBC Hgb Hct MCV MCH MCHC RDW Plt Count Lymph % (Auto) [place] % (Auto) Lymph # [place] # Baso # Seg Neutrophils % Seg Neuts % (Manual) Lymphocytes % (Manual) Monocytes % (Manual) Eosinophils % (Manual) Basophils % (Manual) Nucleated RBC % Seg Neutrophils # Seg Neutrophils # Man Lymphocytes # (Manual) Monocytes # (Manual) Eosinophils # (Manual) PT INR Fibrinogen dRVVT Confirm Interp Factor V Activity POC ABG pH POC ABG pCO2 POC ABG pO2 ABG pO2 ABG HCO3 ABG Base Excess ABG Hemoglobin Oxyhemoglobin Sodium Potassium Chloride Carbon Dioxide BUN Creatinine Glucose POC Glucose 141 H 125 H 130 H Lactic Acid Calcium Phosphorus Magnesium Direct Bilirubin AST ALT Alkaline Phosphatase Lactate Dehydrogenase Troponin T C-Reactive Protein Total Protein Albumin Prealbumin Triglycerides Cholesterol LDL Cholesterol Direct HDL Cholesterol Urine pH Urine WBC (Auto) Urine Creatinine Urine Total Protein Fluid Total Protein Vancomycin Trough Rheumatoid Factor Complement C4 Miscellaneous Test Crossmatch 11/07/16 11/07/16 11/07/16 06:30 06:30 09:37 WBC RBC 2.18 L Hgb 6.3 L Hct 19.7 L* MCV MCH MCHC RDW 16.8 H Plt Count Lymph % (Auto) [place] % (Auto) 10.0 H Lymph # [place] # 1.0 H Baso # Seg Neutrophils % Seg Neuts % (Manual) Lymphocytes % (Manual) Monocytes % (Manual) Eosinophils % (Manual) Basophils % (Manual) Nucleated RBC % Seg Neutrophils # Seg Neutrophils # Man Lymphocytes # (Manual) Monocytes # (Manual) Eosinophils # (Manual) PT INR Fibrinogen dRVVT Confirm Interp Factor V Activity POC ABG pH POC ABG pCO2 POC ABG pO2 ABG pO2 ABG HCO3 ABG Base Excess ABG Hemoglobin Oxyhemoglobin Sodium 135 L Potassium Chloride 95.6 L Carbon Dioxide BUN 70 H Creatinine 2.0 H Glucose 126 H POC Glucose Lactic Acid Calcium Phosphorus Magnesium Direct Bilirubin AST ALT Alkaline Phosphatase Lactate Dehydrogenase Troponin T C-Reactive Protein Total Protein Albumin Prealbumin Triglycerides Cholesterol LDL Cholesterol Direct HDL Cholesterol Urine pH Urine WBC (Auto) Urine Creatinine Urine Total Protein Fluid Total Protein Vancomycin Trough Rheumatoid Factor Complement C4 Miscellaneous Test Crossmatch See Detail 11/07/16 11/07/16 11/07/16 12:52 18:51 21:26 WBC RBC Hgb Hct MCV MCH MCHC RDW Plt Count Lymph % (Auto) [place] % (Auto) Lymph # [place] # Baso # Seg Neutrophils % Seg Neuts % (Manual) Lymphocytes % (Manual) Monocytes % (Manual) Eosinophils % (Manual) Basophils % (Manual) Nucleated RBC % Seg Neutrophils # Seg Neutrophils # Man Lymphocytes # (Manual) Monocytes # (Manual) Eosinophils # (Manual) PT INR Fibrinogen dRVVT Confirm Interp Factor V Activity POC ABG pH 7.523 H POC ABG pCO2 34.6 L POC ABG pO2 53 L ABG pO2 ABG HCO3 ABG Base Excess ABG Hemoglobin Oxyhemoglobin Sodium Potassium Chloride Carbon Dioxide BUN Creatinine Glucose POC Glucose 142 H 155 H Lactic Acid Calcium Phosphorus Magnesium Direct Bilirubin AST ALT Alkaline Phosphatase Lactate Dehydrogenase Troponin T C-Reactive Protein Total Protein Albumin Prealbumin Triglycerides Cholesterol LDL Cholesterol Direct HDL Cholesterol Urine pH Urine WBC (Auto) Urine Creatinine Urine Total Protein Fluid Total Protein Vancomycin Trough Rheumatoid Factor Complement C4 Miscellaneous Test Crossmatch 11/07/16 11/08/16 11/08/16 21:34 13:03 23:37 WBC RBC 2.63 L Hgb 7.7 L Hct 22.7 L MCV MCH MCHC RDW 17.0 H Plt Count Lymph % (Auto) [place] % (Auto) Lymph # [place] # Baso # Seg Neutrophils % Seg Neuts % (Manual) Lymphocytes % (Manual) Monocytes % (Manual) Eosinophils % (Manual) Basophils % (Manual) Nucleated RBC % Seg Neutrophils # Seg Neutrophils # Man Lymphocytes # (Manual) Monocytes # (Manual) Eosinophils # (Manual) PT INR Fibrinogen dRVVT Confirm Interp Factor V Activity POC ABG pH 7.478 H POC ABG pCO2 34.0 L POC ABG pO2 50 L ABG pO2 ABG HCO3 ABG Base Excess ABG Hemoglobin Oxyhemoglobin Sodium Potassium Chloride Carbon Dioxide BUN Creatinine Glucose POC Glucose 113 H Lactic Acid Calcium Phosphorus Magnesium Direct Bilirubin AST ALT Alkaline Phosphatase Lactate Dehydrogenase Troponin T C-Reactive Protein Total Protein Albumin Prealbumin Triglycerides Cholesterol LDL Cholesterol Direct HDL Cholesterol Urine pH Urine WBC (Auto) Urine Creatinine Urine Total Protein Fluid Total Protein Vancomycin Trough Rheumatoid Factor Complement C4 Miscellaneous Test Crossmatch 11/09/16 11/09/16 11/09/16 04:35 10:15 18:21 WBC RBC 2.68 L Hgb 7.8 L Hct 23.3 L MCV MCH MCHC RDW 17.0 H Plt Count Lymph % (Auto) [place] % (Auto) 12.1 H Lymph # [place] # 1.1 H Baso # Seg Neutrophils % Seg Neuts % (Manual) Lymphocytes % (Manual) Monocytes % (Manual) Eosinophils % (Manual) Basophils % (Manual) Nucleated RBC % Seg Neutrophils # Seg Neutrophils # Man Lymphocytes # (Manual) Monocytes # (Manual) Eosinophils # (Manual) PT INR Fibrinogen dRVVT Confirm Interp Factor V Activity POC ABG pH POC ABG pCO2 POC ABG pO2 ABG pO2 ABG HCO3 ABG Base Excess ABG Hemoglobin Oxyhemoglobin Sodium Potassium Chloride Carbon Dioxide BUN 51 H Creatinine 1.8 H Glucose POC Glucose 60 L Lactic Acid Calcium 8.3 L Phosphorus Magnesium Direct Bilirubin AST ALT Alkaline Phosphatase Lactate Dehydrogenase Troponin T C-Reactive Protein Total Protein Albumin Prealbumin Triglycerides Cholesterol LDL Cholesterol Direct HDL Cholesterol Urine pH Urine WBC (Auto) Urine Creatinine Urine Total Protein Fluid Total Protein Vancomycin Trough Rheumatoid Factor Complement C4 Miscellaneous Test Crossmatch 11/09/16 11/10/16 11/10/16 18:55 07:00 11:51 WBC RBC Hgb Hct MCV MCH MCHC RDW Plt Count Lymph % (Auto) [place] % (Auto) Lymph # [place] # Baso # Seg Neutrophils % Seg Neuts % (Manual) Lymphocytes % (Manual) Monocytes % (Manual) Eosinophils % (Manual) Basophils % (Manual) Nucleated RBC % Seg Neutrophils # Seg Neutrophils # Man Lymphocytes # (Manual) Monocytes # (Manual) Eosinophils # (Manual) PT INR Fibrinogen dRVVT Confirm Interp Factor V Activity POC ABG pH POC ABG pCO2 POC ABG pO2 ABG pO2 ABG HCO3 ABG Base Excess ABG Hemoglobin Oxyhemoglobin Sodium Potassium 3.0 L D Chloride 97.4 L Carbon Dioxide BUN 28 H Creatinine 1.3 H Glucose POC Glucose 68 L 120 H Lactic Acid Calcium 7.8 L Phosphorus Magnesium Direct Bilirubin AST ALT Alkaline Phosphatase Lactate Dehydrogenase Troponin T C-Reactive Protein Total Protein Albumin Prealbumin Triglycerides Cholesterol LDL Cholesterol Direct HDL Cholesterol Urine pH Urine WBC (Auto) Urine Creatinine Urine Total Protein Fluid Total Protein Vancomycin Trough Rheumatoid Factor Complement C4 Miscellaneous Test Crossmatch 11/10/16 11/11/16 11/11/16 14:20 06:59 06:59 WBC RBC 2.81 L Hgb 8.1 L Hct 24.4 L MCV MCH MCHC RDW 16.4 H Plt Count Lymph % (Auto) [place] % (Auto) 10.8 H Lymph # [place] # 1.0 H Baso # Seg Neutrophils % Seg Neuts % (Manual) Lymphocytes % (Manual) Monocytes % (Manual) Eosinophils % (Manual) Basophils % (Manual) Nucleated RBC % Seg Neutrophils # Seg Neutrophils # Man Lymphocytes # (Manual) Monocytes # (Manual) Eosinophils # (Manual) PT INR Fibrinogen dRVVT Confirm Interp Factor V Activity POC ABG pH POC ABG pCO2 POC ABG pO2 ABG pO2 ABG HCO3 ABG Base Excess ABG Hemoglobin Oxyhemoglobin Sodium Potassium Chloride Carbon Dioxide BUN Creatinine Glucose POC Glucose Lactic Acid Calcium Phosphorus Magnesium Direct Bilirubin AST ALT Alkaline Phosphatase Lactate Dehydrogenase 196 H Troponin T C-Reactive Protein Total Protein 6.1 L Albumin Prealbumin Triglycerides Cholesterol LDL Cholesterol Direct HDL Cholesterol Urine pH Urine WBC (Auto) Urine Creatinine Urine Total Protein Fluid Total Protein < 3.0 L Vancomycin Trough Rheumatoid Factor Complement C4 Miscellaneous Test Crossmatch 11/11/16 11/11/16 11/12/16 06:59 09:50 04:00 WBC RBC Hgb Hct MCV MCH MCHC RDW Plt Count Lymph % (Auto) [place] % (Auto) Lymph # [place] # Baso # Seg Neutrophils % Seg Neuts % (Manual) Lymphocytes % (Manual) Monocytes % (Manual) Eosinophils % (Manual) Basophils % (Manual) Nucleated RBC % Seg Neutrophils # Seg Neutrophils # Man Lymphocytes # (Manual) Monocytes # (Manual) Eosinophils # (Manual) PT INR 1.18 H Fibrinogen dRVVT Confirm Interp Factor V Activity POC ABG pH POC ABG pCO2 POC ABG pO2 ABG pO2 ABG HCO3 ABG Base Excess ABG Hemoglobin Oxyhemoglobin Sodium 136 L 133 L Potassium Chloride 96.1 L 94.8 L Carbon Dioxide 21 L BUN 37 H 42 H Creatinine 1.8 H 2.0 H Glucose POC Glucose Lactic Acid Calcium Phosphorus Magnesium Direct Bilirubin AST ALT Alkaline Phosphatase Lactate Dehydrogenase Troponin T C-Reactive Protein Total Protein Albumin Prealbumin Triglycerides Cholesterol LDL Cholesterol Direct HDL Cholesterol Urine pH Urine WBC (Auto) Urine Creatinine Urine Total Protein Fluid Total Protein Vancomycin Trough Rheumatoid Factor Complement C4 Miscellaneous Test Crossmatch 11/12/16 11/12/16 11/13/16 04:00 23:55 05:53 WBC RBC Hgb 8.9 L Hct 27.2 L MCV MCH MCHC RDW Plt Count Lymph % (Auto) [place] % (Auto) Lymph # [place] # Baso # Seg Neutrophils % Seg Neuts % (Manual) Lymphocytes % (Manual) Monocytes % (Manual) Eosinophils % (Manual) Basophils % (Manual) Nucleated RBC % Seg Neutrophils # Seg Neutrophils # Man Lymphocytes # (Manual) Monocytes # (Manual) Eosinophils # (Manual) PT INR Fibrinogen dRVVT Confirm Interp Factor V Activity POC ABG pH POC ABG pCO2 POC ABG pO2 ABG pO2 ABG HCO3 ABG Base Excess ABG Hemoglobin Oxyhemoglobin Sodium Potassium Chloride Carbon Dioxide BUN Creatinine Glucose POC Glucose 132 H 120 H Lactic Acid Calcium Phosphorus Magnesium Direct Bilirubin AST ALT Alkaline Phosphatase Lactate Dehydrogenase Troponin T C-Reactive Protein Total Protein Albumin Prealbumin Triglycerides Cholesterol LDL Cholesterol Direct HDL Cholesterol Urine pH Urine WBC (Auto) Urine Creatinine Urine Total Protein Fluid Total Protein Vancomycin Trough Rheumatoid Factor Complement C4 Miscellaneous Test Crossmatch 11/13/16 11/13/16 11/13/16 11:43 17:09 23:41 WBC RBC Hgb Hct MCV MCH MCHC RDW Plt Count Lymph % (Auto) [place] % (Auto) Lymph # [place] # Baso # Seg Neutrophils % Seg Neuts % (Manual) Lymphocytes % (Manual) Monocytes % (Manual) Eosinophils % (Manual) Basophils % (Manual) Nucleated RBC % Seg Neutrophils # Seg Neutrophils # Man Lymphocytes # (Manual) Monocytes # (Manual) Eosinophils # (Manual) PT INR Fibrinogen dRVVT Confirm Interp Factor V Activity POC ABG pH POC ABG pCO2 POC ABG pO2 ABG pO2 ABG HCO3 ABG Base Excess ABG Hemoglobin Oxyhemoglobin Sodium Potassium Chloride Carbon Dioxide BUN Creatinine Glucose POC Glucose 114 H 113 H 108 H Lactic Acid Calcium Phosphorus Magnesium Direct Bilirubin AST ALT Alkaline Phosphatase Lactate Dehydrogenase Troponin T C-Reactive Protein Total Protein Albumin Prealbumin Triglycerides Cholesterol LDL Cholesterol Direct HDL Cholesterol Urine pH Urine WBC (Auto) Urine Creatinine Urine Total Protein Fluid Total Protein Vancomycin Trough Rheumatoid Factor Complement C4 Miscellaneous Test Crossmatch 11/13/16 11/15/16 11/15/16 Unknown 00:37 03:30 WBC 11.2 H RBC 2.72 L Hgb 7.6 L Hct 23.4 L MCV MCH MCHC RDW 16.5 H Plt Count Lymph % (Auto) [place] % (Auto) Lymph # [place] # Baso # Seg Neutrophils % Seg Neuts % (Manual) Lymphocytes % (Manual) Monocytes % (Manual) Eosinophils % (Manual) Basophils % (Manual) Nucleated RBC % Seg Neutrophils # Seg Neutrophils # Man Lymphocytes # (Manual) Monocytes # (Manual) Eosinophils # (Manual) PT INR Fibrinogen dRVVT Confirm Interp Factor V Activity POC ABG pH POC ABG pCO2 POC ABG pO2 ABG pO2 ABG HCO3 ABG Base Excess ABG Hemoglobin Oxyhemoglobin Sodium 135 L Potassium Chloride 95.2 L Carbon Dioxide BUN 52 H Creatinine 2.2 H Glucose POC Glucose 108 H Lactic Acid Calcium Phosphorus Magnesium Direct Bilirubin AST ALT Alkaline Phosphatase Lactate Dehydrogenase Troponin T C-Reactive Protein Total Protein Albumin Prealbumin Triglycerides Cholesterol LDL Cholesterol Direct HDL Cholesterol Urine pH Urine WBC (Auto) Urine Creatinine Urine Total Protein Fluid Total Protein Vancomycin Trough Rheumatoid Factor Complement C4 Miscellaneous Test Crossmatch 11/15/16 11/15/16 11/15/16 03:30 05:04 11:50 WBC RBC Hgb Hct MCV MCH MCHC RDW Plt Count Lymph % (Auto) [place] % (Auto) Lymph # [place] # Baso # Seg Neutrophils % Seg Neuts % (Manual) Lymphocytes % (Manual) Monocytes % (Manual) Eosinophils % (Manual) Basophils % (Manual) Nucleated RBC % Seg Neutrophils # Seg Neutrophils # Man Lymphocytes # (Manual) Monocytes # (Manual) Eosinophils # (Manual) PT INR Fibrinogen dRVVT Confirm Interp Factor V Activity POC ABG pH POC ABG pCO2 POC ABG pO2 ABG pO2 ABG HCO3 ABG Base Excess ABG Hemoglobin Oxyhemoglobin Sodium Potassium 3.4 L Chloride Carbon Dioxide BUN 25 H Creatinine 1.5 H Glucose 103 H POC Glucose 121 H 144 H Lactic Acid Calcium Phosphorus Magnesium Direct Bilirubin AST ALT Alkaline Phosphatase Lactate Dehydrogenase Troponin T C-Reactive Protein Total Protein Albumin Prealbumin Triglycerides Cholesterol LDL Cholesterol Direct HDL Cholesterol Urine pH Urine WBC (Auto) Urine Creatinine Urine Total Protein Fluid Total Protein Vancomycin Trough Rheumatoid Factor Complement C4 Miscellaneous Test Crossmatch 11/15/16 11/15/16 11/16/16 21:28 23:20 11:44 WBC RBC Hgb Hct MCV MCH MCHC RDW Plt Count Lymph % (Auto) [place] % (Auto) Lymph # [place] # Baso # Seg Neutrophils % Seg Neuts % (Manual) Lymphocytes % (Manual) Monocytes % (Manual) Eosinophils % (Manual) Basophils % (Manual) Nucleated RBC % Seg Neutrophils # Seg Neutrophils # Man Lymphocytes # (Manual) Monocytes # (Manual) Eosinophils # (Manual) PT INR Fibrinogen dRVVT Confirm Interp Factor V Activity POC ABG pH 7.462 H POC ABG pCO2 POC ABG pO2 71 L ABG pO2 ABG HCO3 ABG Base Excess ABG Hemoglobin Oxyhemoglobin Sodium Potassium Chloride Carbon Dioxide BUN Creatinine Glucose POC Glucose 116 H 133 H Lactic Acid Calcium Phosphorus Magnesium Direct Bilirubin AST ALT Alkaline Phosphatase Lactate Dehydrogenase Troponin T C-Reactive Protein Total Protein Albumin Prealbumin Triglycerides Cholesterol LDL Cholesterol Direct HDL Cholesterol Urine pH Urine WBC (Auto) Urine Creatinine Urine Total Protein Fluid Total Protein Vancomycin Trough Rheumatoid Factor Complement C4 Miscellaneous Test Crossmatch 11/16/16 11/16/16 11/16/16 12:20 17:05 23:35 WBC 11.7 H RBC 2.73 L Hgb 7.6 L Hct 23.7 L MCV MCH MCHC RDW 16.6 H Plt Count Lymph % (Auto) [place] % (Auto) Lymph # [place] # Baso # Seg Neutrophils % Seg Neuts % (Manual) Lymphocytes % (Manual) Monocytes % (Manual) Eosinophils % (Manual) Basophils % (Manual) Nucleated RBC % Seg Neutrophils # Seg Neutrophils # Man Lymphocytes # (Manual) Monocytes # (Manual) Eosinophils # (Manual) PT INR Fibrinogen dRVVT Confirm Interp Factor V Activity POC ABG pH POC ABG pCO2 POC ABG pO2 ABG pO2 ABG HCO3 ABG Base Excess ABG Hemoglobin Oxyhemoglobin Sodium Potassium Chloride Carbon Dioxide BUN Creatinine Glucose POC Glucose 154 H 125 H Lactic Acid Calcium Phosphorus Magnesium Direct Bilirubin AST ALT Alkaline Phosphatase Lactate Dehydrogenase Troponin T C-Reactive Protein Total Protein Albumin Prealbumin Triglycerides Cholesterol LDL Cholesterol Direct HDL Cholesterol Urine pH Urine WBC (Auto) Urine Creatinine Urine Total Protein Fluid Total Protein Vancomycin Trough Rheumatoid Factor Complement C4 Miscellaneous Test Crossmatch 11/17/16 11/17/16 11/17/16 03:20 03:20 03:20 WBC RBC 2.55 L Hgb 7.3 L Hct 21.9 L MCV MCH MCHC RDW 16.6 H Plt Count Lymph % (Auto) [place] % (Auto) 11.5 H Lymph # [place] # 1.1 H Baso # Seg Neutrophils % Seg Neuts % (Manual) Lymphocytes % (Manual) Monocytes % (Manual) Eosinophils % (Manual) Basophils % (Manual) Nucleated RBC % Seg Neutrophils # Seg Neutrophils # Man Lymphocytes # (Manual) Monocytes # (Manual) Eosinophils # (Manual) PT 16.8 H INR 1.37 H Fibrinogen dRVVT Confirm Interp Factor V Activity POC ABG pH POC ABG pCO2 POC ABG pO2 ABG pO2 ABG HCO3 ABG Base Excess ABG Hemoglobin Oxyhemoglobin Sodium Potassium 3.5 L Chloride Carbon Dioxide BUN 21 H Creatinine Glucose POC Glucose Lactic Acid Calcium 7.9 L Phosphorus Magnesium Direct Bilirubin AST ALT Alkaline Phosphatase Lactate Dehydrogenase Troponin T C-Reactive Protein Total Protein Albumin Prealbumin Triglycerides Cholesterol LDL Cholesterol Direct HDL Cholesterol Urine pH Urine WBC (Auto) Urine Creatinine Urine Total Protein Fluid Total Protein Vancomycin Trough Rheumatoid Factor Complement C4 Miscellaneous Test Crossmatch 11/17/16 11/17/16 11/17/16 06:34 11:21 21:22 WBC RBC Hgb Hct MCV MCH MCHC RDW Plt Count Lymph % (Auto) [place] % (Auto) Lymph # [place] # Baso # Seg Neutrophils % Seg Neuts % (Manual) Lymphocytes % (Manual) Monocytes % (Manual) Eosinophils % (Manual) Basophils % (Manual) Nucleated RBC % Seg Neutrophils # Seg Neutrophils # Man Lymphocytes # (Manual) Monocytes # (Manual) Eosinophils # (Manual) PT INR Fibrinogen dRVVT Confirm Interp Factor V Activity POC ABG pH 7.467 H POC ABG pCO2 POC ABG pO2 73 L ABG pO2 ABG HCO3 ABG Base Excess ABG Hemoglobin Oxyhemoglobin Sodium Potassium Chloride Carbon Dioxide BUN Creatinine Glucose POC Glucose 121 H 119 H Lactic Acid Calcium Phosphorus Magnesium Direct Bilirubin AST ALT Alkaline Phosphatase Lactate Dehydrogenase Troponin T C-Reactive Protein Total Protein Albumin Prealbumin Triglycerides Cholesterol LDL Cholesterol Direct HDL Cholesterol Urine pH Urine WBC (Auto) Urine Creatinine Urine Total Protein Fluid Total Protein Vancomycin Trough Rheumatoid Factor Complement C4 Miscellaneous Test Crossmatch 11/18/16 11/18/16 11/19/16 12:16 17:19 00:00 WBC RBC Hgb Hct MCV MCH MCHC RDW Plt Count Lymph % (Auto) [place] % (Auto) Lymph # [place] # Baso # Seg Neutrophils % Seg Neuts % (Manual) Lymphocytes % (Manual) Monocytes % (Manual) Eosinophils % (Manual) Basophils % (Manual) Nucleated RBC % Seg Neutrophils # Seg Neutrophils # Man Lymphocytes # (Manual) Monocytes # (Manual) Eosinophils # (Manual) PT INR Fibrinogen dRVVT Confirm Interp Factor V Activity POC ABG pH POC ABG pCO2 POC ABG pO2 ABG pO2 ABG HCO3 ABG Base Excess ABG Hemoglobin Oxyhemoglobin Sodium Potassium Chloride Carbon Dioxide BUN Creatinine Glucose POC Glucose 124 H 162 H 139 H Lactic Acid Calcium Phosphorus Magnesium Direct Bilirubin AST ALT Alkaline Phosphatase Lactate Dehydrogenase Troponin T C-Reactive Protein Total Protein Albumin Prealbumin Triglycerides Cholesterol LDL Cholesterol Direct HDL Cholesterol Urine pH Urine WBC (Auto) Urine Creatinine Urine Total Protein Fluid Total Protein Vancomycin Trough Rheumatoid Factor Complement C4 Miscellaneous Test Crossmatch 11/19/16 11/19/16 11/20/16 05:00 12:43 00:40 WBC RBC Hgb Hct MCV MCH MCHC RDW Plt Count Lymph % (Auto) [place] % (Auto) Lymph # [place] # Baso # Seg Neutrophils % Seg Neuts % (Manual) Lymphocytes % (Manual) Monocytes % (Manual) Eosinophils % (Manual) Basophils % (Manual) Nucleated RBC % Seg Neutrophils # Seg Neutrophils # Man Lymphocytes # (Manual) Monocytes # (Manual) Eosinophils # (Manual) PT INR Fibrinogen dRVVT Confirm Interp Factor V Activity POC ABG pH POC ABG pCO2 POC ABG pO2 ABG pO2 ABG HCO3 ABG Base Excess ABG Hemoglobin Oxyhemoglobin Sodium Potassium Chloride Carbon Dioxide BUN Creatinine Glucose POC Glucose 110 H 125 H 136 H Lactic Acid Calcium Phosphorus Magnesium Direct Bilirubin AST ALT Alkaline Phosphatase Lactate Dehydrogenase Troponin T C-Reactive Protein Total Protein Albumin Prealbumin Triglycerides Cholesterol LDL Cholesterol Direct HDL Cholesterol Urine pH Urine WBC (Auto) Urine Creatinine Urine Total Protein Fluid Total Protein Vancomycin Trough Rheumatoid Factor Complement C4 Miscellaneous Test Crossmatch 11/20/16 11/20/16 11/20/16 05:00 05:00 05:51 WBC 13.1 H RBC 2.74 L Hgb 7.7 L Hct 23.6 L MCV MCH MCHC RDW 16.9 H Plt Count Lymph % (Auto) [place] % (Auto) 10.8 H Lymph # [place] # 1.4 H Baso # Seg Neutrophils % Seg Neuts % (Manual) Lymphocytes % (Manual) Monocytes % (Manual) Eosinophils % (Manual) Basophils % (Manual) Nucleated RBC % Seg Neutrophils # 7.9 H Seg Neutrophils # Man Lymphocytes # (Manual) Monocytes # (Manual) Eosinophils # (Manual) PT INR Fibrinogen dRVVT Confirm Interp Factor V Activity POC ABG pH POC ABG pCO2 POC ABG pO2 ABG pO2 ABG HCO3 ABG Base Excess ABG Hemoglobin Oxyhemoglobin Sodium Potassium Chloride Carbon Dioxide BUN 31 H Creatinine 1.8 H Glucose 129 H POC Glucose 133 H Lactic Acid Calcium Phosphorus Magnesium Direct Bilirubin AST ALT Alkaline Phosphatase Lactate Dehydrogenase Troponin T C-Reactive Protein Total Protein Albumin Prealbumin Triglycerides Cholesterol LDL Cholesterol Direct HDL Cholesterol Urine pH Urine WBC (Auto) Urine Creatinine Urine Total Protein Fluid Total Protein Vancomycin Trough Rheumatoid Factor Complement C4 Miscellaneous Test Crossmatch 11/20/16 11/20/16 11/21/16 12:40 18:10 01:20 WBC RBC Hgb Hct MCV MCH MCHC RDW Plt Count Lymph % (Auto) [place] % (Auto) Lymph # [place] # Baso # Seg Neutrophils % Seg Neuts % (Manual) Lymphocytes % (Manual) Monocytes % (Manual) Eosinophils % (Manual) Basophils % (Manual) Nucleated RBC % Seg Neutrophils # Seg Neutrophils # Man Lymphocytes # (Manual) Monocytes # (Manual) Eosinophils # (Manual) PT INR Fibrinogen dRVVT Confirm Interp Factor V Activity POC ABG pH POC ABG pCO2 POC ABG pO2 ABG pO2 ABG HCO3 ABG Base Excess ABG Hemoglobin Oxyhemoglobin Sodium Potassium Chloride Carbon Dioxide BUN Creatinine Glucose POC Glucose 134 H 138 H 136 H Lactic Acid Calcium Phosphorus Magnesium Direct Bilirubin AST ALT Alkaline Phosphatase Lactate Dehydrogenase Troponin T C-Reactive Protein Total Protein Albumin Prealbumin Triglycerides Cholesterol LDL Cholesterol Direct HDL Cholesterol Urine pH Urine WBC (Auto) Urine Creatinine Urine Total Protein Fluid Total Protein Vancomycin Trough Rheumatoid Factor Complement C4 Miscellaneous Test Crossmatch 11/21/16 11/21/16 11/21/16 07:04 07:45 07:45 WBC 22.0 H RBC 2.91 L Hgb 8.2 L Hct 25.4 L MCV MCH MCHC RDW 17.1 H Plt Count Lymph % (Auto) [place] % (Auto) Lymph # [place] # Baso # Seg Neutrophils % Seg Neuts % (Manual) Lymphocytes % (Manual) 8.0 L Monocytes % (Manual) Eosinophils % (Manual) Basophils % (Manual) Nucleated RBC % Seg Neutrophils # Seg Neutrophils # Man 14.7 H Lymphocytes # (Manual) Monocytes # (Manual) 1.1 H Eosinophils # (Manual) PT INR Fibrinogen dRVVT Confirm Interp Factor V Activity POC ABG pH POC ABG pCO2 POC ABG pO2 ABG pO2 ABG HCO3 ABG Base Excess ABG Hemoglobin Oxyhemoglobin Sodium Potassium Chloride Carbon Dioxide BUN 42 H Creatinine 2.0 H Glucose POC Glucose 108 H Lactic Acid Calcium Phosphorus Magnesium Direct Bilirubin AST ALT Alkaline Phosphatase Lactate Dehydrogenase Troponin T C-Reactive Protein Total Protein Albumin Prealbumin Triglycerides Cholesterol LDL Cholesterol Direct HDL Cholesterol Urine pH Urine WBC (Auto) Urine Creatinine Urine Total Protein Fluid Total Protein Vancomycin Trough Rheumatoid Factor Complement C4 Miscellaneous Test Crossmatch 11/21/16 11/21/16 11/21/16 08:38 10:09 11:20 WBC RBC Hgb Hct MCV MCH MCHC RDW Plt Count Lymph % (Auto) [place] % (Auto) Lymph # [place] # Baso # Seg Neutrophils % Seg Neuts % (Manual) Lymphocytes % (Manual) Monocytes % (Manual) Eosinophils % (Manual) Basophils % (Manual) Nucleated RBC % Seg Neutrophils # Seg Neutrophils # Man Lymphocytes # (Manual) Monocytes # (Manual) Eosinophils # (Manual) PT INR Fibrinogen dRVVT Confirm Interp Factor V Activity POC ABG pH 7.346 L POC ABG pCO2 34.4 L POC ABG pO2 314 H ABG pO2 ABG HCO3 ABG Base Excess ABG Hemoglobin Oxyhemoglobin Sodium Potassium Chloride Carbon Dioxide BUN Creatinine Glucose POC Glucose 195 H 153 H Lactic Acid Calcium Phosphorus Magnesium Direct Bilirubin AST ALT Alkaline Phosphatase Lactate Dehydrogenase Troponin T C-Reactive Protein Total Protein Albumin Prealbumin Triglycerides Cholesterol LDL Cholesterol Direct HDL Cholesterol Urine pH Urine WBC (Auto) Urine Creatinine Urine Total Protein Fluid Total Protein Vancomycin Trough Rheumatoid Factor Complement C4 Miscellaneous Test Crossmatch 11/21/16 11/22/16 11/22/16 23:37 04:48 05:00 WBC 29.7 H RBC 2.73 L Hgb 7.5 L Hct 24.2 L MCV MCH 27 L MCHC RDW 17.4 H Plt Count Lymph % (Auto) [place] % (Auto) Lymph # [place] # Baso # Seg Neutrophils % Seg Neuts % (Manual) Lymphocytes % (Manual) 7.0 L Monocytes % (Manual) Eosinophils % (Manual) Basophils % (Manual) Nucleated RBC % Seg Neutrophils # Seg Neutrophils # Man 15.4 H Lymphocytes # (Manual) Monocytes # (Manual) Eosinophils # (Manual) PT INR Fibrinogen dRVVT Confirm Interp Factor V Activity POC ABG pH POC ABG pCO2 24.6 L POC ABG pO2 189 H ABG pO2 ABG HCO3 ABG Base Excess ABG Hemoglobin Oxyhemoglobin Sodium Potassium Chloride Carbon Dioxide BUN Creatinine Glucose POC Glucose 65 L Lactic Acid Calcium Phosphorus Magnesium Direct Bilirubin AST ALT Alkaline Phosphatase Lactate Dehydrogenase Troponin T C-Reactive Protein Total Protein Albumin Prealbumin Triglycerides Cholesterol LDL Cholesterol Direct HDL Cholesterol Urine pH Urine WBC (Auto) Urine Creatinine Urine Total Protein Fluid Total Protein Vancomycin Trough Rheumatoid Factor Complement C4 Miscellaneous Test Crossmatch 11/22/16 11/23/16 11/23/16 05:00 03:44 04:06 WBC RBC 2.52 L Hgb 7.2 L Hct 21.5 L MCV MCH MCHC RDW 17.1 H Plt Count Lymph % (Auto) [place] % (Auto) 12.4 H Lymph # [place] # 1.4 H Baso # Seg Neutrophils % Seg Neuts % (Manual) Lymphocytes % (Manual) Monocytes % (Manual) Eosinophils % (Manual) Basophils % (Manual) Nucleated RBC % Seg Neutrophils # Seg Neutrophils # Man Lymphocytes # (Manual) Monocytes # (Manual) Eosinophils # (Manual) PT INR Fibrinogen dRVVT Confirm Interp Factor V Activity POC ABG pH 7.493 H POC ABG pCO2 29.5 L POC ABG pO2 49 L ABG pO2 ABG HCO3 ABG Base Excess ABG Hemoglobin Oxyhemoglobin Sodium 134 L Potassium Chloride 95.9 L Carbon Dioxide 14 L D BUN 51 H Creatinine 2.6 H Glucose POC Glucose Lactic Acid Calcium Phosphorus Magnesium Direct Bilirubin AST ALT Alkaline Phosphatase Lactate Dehydrogenase Troponin T C-Reactive Protein Total Protein Albumin Prealbumin Triglycerides Cholesterol LDL Cholesterol Direct HDL Cholesterol Urine pH Urine WBC (Auto) Urine Creatinine Urine Total Protein Fluid Total Protein Vancomycin Trough Rheumatoid Factor Complement C4 Miscellaneous Test Crossmatch 11/23/16 11/23/16 11/24/16 04:06 11:29 06:39 WBC RBC Hgb Hct MCV MCH MCHC RDW Plt Count Lymph % (Auto) [place] % (Auto) Lymph # [place] # Baso # Seg Neutrophils % Seg Neuts % (Manual) Lymphocytes % (Manual) Monocytes % (Manual) Eosinophils % (Manual) Basophils % (Manual) Nucleated RBC % Seg Neutrophils # Seg Neutrophils # Man Lymphocytes # (Manual) Monocytes # (Manual) Eosinophils # (Manual) PT INR Fibrinogen dRVVT Confirm Interp Factor V Activity POC ABG pH POC ABG pCO2 POC ABG pO2 ABG pO2 ABG HCO3 ABG Base Excess ABG Hemoglobin Oxyhemoglobin Sodium 136 L Potassium Chloride 95.2 L Carbon Dioxide BUN 60 H Creatinine 2.9 H Glucose POC Glucose 69 L 305 H Lactic Acid Calcium Phosphorus Magnesium 1.60 L Direct Bilirubin AST ALT Alkaline Phosphatase Lactate Dehydrogenase Troponin T C-Reactive Protein Total Protein Albumin Prealbumin Triglycerides Cholesterol LDL Cholesterol Direct HDL Cholesterol Urine pH Urine WBC (Auto) Urine Creatinine Urine Total Protein Fluid Total Protein Vancomycin Trough Rheumatoid Factor Complement C4 Miscellaneous Test Crossmatch 11/24/16 11/24/16 11/24/16 06:43 08:08 08:08 WBC 11.2 H RBC 2.47 L Hgb 6.8 L Hct 20.6 L MCV MCH MCHC RDW 17.0 H Plt Count Lymph % (Auto) [place] % (Auto) 10.3 H Lymph # [place] # 1.2 H Baso # Seg Neutrophils % Seg Neuts % (Manual) Lymphocytes % (Manual) Monocytes % (Manual) Eosinophils % (Manual) Basophils % (Manual) Nucleated RBC % Seg Neutrophils # Seg Neutrophils # Man Lymphocytes # (Manual) Monocytes # (Manual) Eosinophils # (Manual) PT INR Fibrinogen dRVVT Confirm Interp Factor V Activity POC ABG pH POC ABG pCO2 POC ABG pO2 ABG pO2 ABG HCO3 ABG Base Excess ABG Hemoglobin Oxyhemoglobin Sodium 135 L Potassium Chloride 96.3 L Carbon Dioxide BUN 61 H Creatinine 3.1 H Glucose POC Glucose 62 L Lactic Acid Calcium 8.2 L Phosphorus Magnesium Direct Bilirubin AST ALT Alkaline Phosphatase Lactate Dehydrogenase Troponin T C-Reactive Protein Total Protein Albumin Prealbumin Triglycerides Cholesterol LDL Cholesterol Direct HDL Cholesterol Urine pH Urine WBC (Auto) Urine Creatinine Urine Total Protein Fluid Total Protein Vancomycin Trough Rheumatoid Factor Complement C4 Miscellaneous Test Crossmatch 11/24/16 11/24/16 11/24/16 08:34 11:20 12:41 WBC RBC Hgb Hct MCV MCH MCHC RDW Plt Count Lymph % (Auto) [place] % (Auto) Lymph # [place] # Baso # Seg Neutrophils % Seg Neuts % (Manual) Lymphocytes % (Manual) Monocytes % (Manual) Eosinophils % (Manual) Basophils % (Manual) Nucleated RBC % Seg Neutrophils # Seg Neutrophils # Man Lymphocytes # (Manual) Monocytes # (Manual) Eosinophils # (Manual) PT INR Fibrinogen dRVVT Confirm Interp Factor V Activity POC ABG pH POC ABG pCO2 POC ABG pO2 ABG pO2 ABG HCO3 ABG Base Excess ABG Hemoglobin Oxyhemoglobin Sodium Potassium Chloride Carbon Dioxide BUN Creatinine Glucose POC Glucose 108 H Lactic Acid Calcium Phosphorus Magnesium 1.60 L Direct Bilirubin AST ALT Alkaline Phosphatase Lactate Dehydrogenase Troponin T C-Reactive Protein Total Protein Albumin Prealbumin Triglycerides Cholesterol LDL Cholesterol Direct HDL Cholesterol Urine pH Urine WBC (Auto) Urine Creatinine Urine Total Protein Fluid Total Protein Vancomycin Trough Rheumatoid Factor Complement C4 Miscellaneous Test Crossmatch See Detail 11/25/16 11/25/16 11/25/16 00:03 04:42 04:42 WBC RBC 3.03 L Hgb 8.6 L Hct 25.3 L MCV MCH MCHC RDW 16.2 H Plt Count Lymph % (Auto) [place] % (Auto) 8.1 H Lymph # [place] # Baso # Seg Neutrophils % 71.3 H Seg Neuts % (Manual) Lymphocytes % (Manual) Monocytes % (Manual) Eosinophils % (Manual) Basophils % (Manual) Nucleated RBC % Seg Neutrophils # Seg Neutrophils # Man Lymphocytes # (Manual) Monocytes # (Manual) Eosinophils # (Manual) PT INR Fibrinogen dRVVT Confirm Interp Factor V Activity POC ABG pH POC ABG pCO2 POC ABG pO2 ABG pO2 ABG HCO3 ABG Base Excess ABG Hemoglobin Oxyhemoglobin Sodium Potassium Chloride Carbon Dioxide BUN 61 H Creatinine 3.0 H Glucose 102 H POC Glucose 113 H Lactic Acid Calcium 8.2 L Phosphorus Magnesium Direct Bilirubin AST ALT Alkaline Phosphatase 142 H Lactate Dehydrogenase Troponin T C-Reactive Protein Total Protein 5.7 L Albumin 1.5 L Prealbumin Triglycerides Cholesterol LDL Cholesterol Direct HDL Cholesterol Urine pH Urine WBC (Auto) Urine Creatinine Urine Total Protein Fluid Total Protein Vancomycin Trough Rheumatoid Factor Complement C4 Miscellaneous Test Crossmatch 11/25/16 11/25/16 11/25/16 05:12 11:31 14:12 WBC RBC Hgb Hct MCV MCH MCHC RDW Plt Count Lymph % (Auto) [place] % (Auto) Lymph # [place] # Baso # Seg Neutrophils % Seg Neuts % (Manual) Lymphocytes % (Manual) Monocytes % (Manual) Eosinophils % (Manual) Basophils % (Manual) Nucleated RBC % Seg Neutrophils # Seg Neutrophils # Man Lymphocytes # (Manual) Monocytes # (Manual) Eosinophils # (Manual) PT INR Fibrinogen dRVVT Confirm Interp Factor V Activity POC ABG pH 7.487 H POC ABG pCO2 POC ABG pO2 153 H ABG pO2 ABG HCO3 ABG Base Excess ABG Hemoglobin Oxyhemoglobin Sodium Potassium Chloride Carbon Dioxide BUN Creatinine Glucose POC Glucose 131 H 140 H Lactic Acid Calcium Phosphorus Magnesium Direct Bilirubin AST ALT Alkaline Phosphatase Lactate Dehydrogenase Troponin T C-Reactive Protein Total Protein Albumin Prealbumin Triglycerides Cholesterol LDL Cholesterol Direct HDL Cholesterol Urine pH Urine WBC (Auto) Urine Creatinine Urine Total Protein Fluid Total Protein Vancomycin Trough Rheumatoid Factor Complement C4 Miscellaneous Test Crossmatch 11/25/16 11/26/16 11/26/16 17:23 00:09 05:13 WBC RBC 2.94 L Hgb 8.4 L Hct 24.6 L MCV MCH MCHC RDW 16.4 H Plt Count Lymph % (Auto) [place] % (Auto) 12.3 H Lymph # [place] # 1.1 H Baso # Seg Neutrophils % Seg Neuts % (Manual) Lymphocytes % (Manual) Monocytes % (Manual) Eosinophils % (Manual) Basophils % (Manual) Nucleated RBC % Seg Neutrophils # Seg Neutrophils # Man Lymphocytes # (Manual) Monocytes # (Manual) Eosinophils # (Manual) PT INR Fibrinogen dRVVT Confirm Interp Factor V Activity POC ABG pH POC ABG pCO2 POC ABG pO2 ABG pO2 ABG HCO3 ABG Base Excess ABG Hemoglobin Oxyhemoglobin Sodium Potassium Chloride Carbon Dioxide BUN Creatinine Glucose POC Glucose 146 H 112 H Lactic Acid Calcium Phosphorus Magnesium Direct Bilirubin AST ALT Alkaline Phosphatase Lactate Dehydrogenase Troponin T C-Reactive Protein Total Protein Albumin Prealbumin Triglycerides Cholesterol LDL Cholesterol Direct HDL Cholesterol Urine pH Urine WBC (Auto) Urine Creatinine Urine Total Protein Fluid Total Protein Vancomycin Trough Rheumatoid Factor Complement C4 Miscellaneous Test Crossmatch 11/26/16 11/26/16 11/26/16 05:13 05:28 11:53 WBC RBC Hgb Hct MCV MCH MCHC RDW Plt Count Lymph % (Auto) [place] % (Auto) Lymph # [place] # Baso # Seg Neutrophils % Seg Neuts % (Manual) Lymphocytes % (Manual) Monocytes % (Manual) Eosinophils % (Manual) Basophils % (Manual) Nucleated RBC % Seg Neutrophils # Seg Neutrophils # Man Lymphocytes # (Manual) Monocytes # (Manual) Eosinophils # (Manual) PT INR Fibrinogen dRVVT Confirm Interp Factor V Activity POC ABG pH POC ABG pCO2 POC ABG pO2 ABG pO2 ABG HCO3 ABG Base Excess ABG Hemoglobin Oxyhemoglobin Sodium Potassium Chloride 97.8 L Carbon Dioxide BUN 37 H Creatinine 2.0 H Glucose 109 H POC Glucose 117 H 111 H Lactic Acid Calcium 7.9 L Phosphorus 1.80 L D Magnesium Direct Bilirubin AST ALT Alkaline Phosphatase Lactate Dehydrogenase Troponin T C-Reactive Protein Total Protein Albumin Prealbumin Triglycerides Cholesterol LDL Cholesterol Direct HDL Cholesterol Urine pH Urine WBC (Auto) Urine Creatinine Urine Total Protein Fluid Total Protein Vancomycin Trough Rheumatoid Factor Complement C4 Miscellaneous Test Crossmatch 11/26/16 11/27/16 11/27/16 17:14 04:50 06:02 WBC RBC Hgb Hct MCV MCH MCHC RDW Plt Count Lymph % (Auto) [place] % (Auto) Lymph # [place] # Baso # Seg Neutrophils % Seg Neuts % (Manual) Lymphocytes % (Manual) Monocytes % (Manual) Eosinophils % (Manual) Basophils % (Manual) Nucleated RBC % Seg Neutrophils # Seg Neutrophils # Man Lymphocytes # (Manual) Monocytes # (Manual) Eosinophils # (Manual) PT INR Fibrinogen dRVVT Confirm Interp Factor V Activity POC ABG pH POC ABG pCO2 POC ABG pO2 ABG pO2 75.2 L ABG HCO3 26.4 H ABG Base Excess ABG Hemoglobin 7.6 L Oxyhemoglobin 94.8 L Sodium Potassium Chloride Carbon Dioxide BUN 49 H Creatinine 2.3 H Glucose POC Glucose 115 H Lactic Acid Calcium Phosphorus 1.50 L Magnesium Direct Bilirubin AST ALT Alkaline Phosphatase Lactate Dehydrogenase Troponin T C-Reactive Protein Total Protein Albumin Prealbumin Triglycerides Cholesterol LDL Cholesterol Direct HDL Cholesterol Urine pH Urine WBC (Auto) Urine Creatinine Urine Total Protein Fluid Total Protein Vancomycin Trough Rheumatoid Factor Complement C4 Miscellaneous Test Crossmatch 11/27/16 11/27/16 11/27/16 06:02 11:25 17:25 WBC 11.6 H RBC 2.75 L Hgb 7.6 L Hct 23.4 L MCV MCH MCHC RDW 16.5 H Plt Count Lymph % (Auto) [place] % (Auto) Lymph # [place] # Baso # Seg Neutrophils % Seg Neuts % (Manual) Lymphocytes % (Manual) Monocytes % (Manual) Eosinophils % (Manual) Basophils % (Manual) Nucleated RBC % Seg Neutrophils # Seg Neutrophils # Man Lymphocytes # (Manual) Monocytes # (Manual) Eosinophils # (Manual) PT INR Fibrinogen dRVVT Confirm Interp Factor V Activity POC ABG pH POC ABG pCO2 POC ABG pO2 ABG pO2 ABG HCO3 ABG Base Excess ABG Hemoglobin Oxyhemoglobin Sodium Potassium Chloride Carbon Dioxide BUN Creatinine Glucose POC Glucose 114 H 126 H Lactic Acid Calcium Phosphorus Magnesium Direct Bilirubin AST ALT Alkaline Phosphatase Lactate Dehydrogenase Troponin T C-Reactive Protein Total Protein Albumin Prealbumin Triglycerides Cholesterol LDL Cholesterol Direct HDL Cholesterol Urine pH Urine WBC (Auto) Urine Creatinine Urine Total Protein Fluid Total Protein Vancomycin Trough Rheumatoid Factor Complement C4 Miscellaneous Test Crossmatch 11/28/16 11/28/16 11/28/16 04:45 05:33 05:44 WBC RBC Hgb Hct MCV MCH MCHC RDW Plt Count Lymph % (Auto) [place] % (Auto) Lymph # [place] # Baso # Seg Neutrophils % Seg Neuts % (Manual) Lymphocytes % (Manual) Monocytes % (Manual) Eosinophils % (Manual) Basophils % (Manual) Nucleated RBC % Seg Neutrophils # Seg Neutrophils # Man Lymphocytes # (Manual) Monocytes # (Manual) Eosinophils # (Manual) PT INR Fibrinogen dRVVT Confirm Interp Factor V Activity POC ABG pH POC ABG pCO2 POC ABG pO2 ABG pO2 99.3 H ABG HCO3 ABG Base Excess ABG Hemoglobin 8.3 L Oxyhemoglobin Sodium Potassium Chloride Carbon Dioxide BUN 63 H Creatinine 2.4 H Glucose 102 H POC Glucose 108 H Lactic Acid Calcium Phosphorus 1.80 L Magnesium Direct Bilirubin AST ALT Alkaline Phosphatase Lactate Dehydrogenase Troponin T C-Reactive Protein Total Protein Albumin Prealbumin Triglycerides Cholesterol LDL Cholesterol Direct HDL Cholesterol Urine pH Urine WBC (Auto) Urine Creatinine Urine Total Protein Fluid Total Protein Vancomycin Trough Rheumatoid Factor Complement C4 Miscellaneous Test Crossmatch 11/28/16 11/28/16 11/28/16 12:31 16:09 23:46 WBC RBC Hgb Hct MCV MCH MCHC RDW Plt Count Lymph % (Auto) [place] % (Auto) Lymph # [place] # Baso # Seg Neutrophils % Seg Neuts % (Manual) Lymphocytes % (Manual) Monocytes % (Manual) Eosinophils % (Manual) Basophils % (Manual) Nucleated RBC % Seg Neutrophils # Seg Neutrophils # Man Lymphocytes # (Manual) Monocytes # (Manual) Eosinophils # (Manual) PT INR Fibrinogen dRVVT Confirm Interp Factor V Activity POC ABG pH POC ABG pCO2 POC ABG pO2 ABG pO2 ABG HCO3 ABG Base Excess ABG Hemoglobin Oxyhemoglobin Sodium Potassium Chloride Carbon Dioxide BUN Creatinine Glucose POC Glucose 126 H 111 H 119 H Lactic Acid Calcium Phosphorus Magnesium Direct Bilirubin AST ALT Alkaline Phosphatase Lactate Dehydrogenase Troponin T C-Reactive Protein Total Protein Albumin Prealbumin Triglycerides Cholesterol LDL Cholesterol Direct HDL Cholesterol Urine pH Urine WBC (Auto) Urine Creatinine Urine Total Protein Fluid Total Protein Vancomycin Trough Rheumatoid Factor Complement C4 Miscellaneous Test Crossmatch 11/29/16 11/29/16 11/29/16 03:33 04:52 05:10 WBC RBC Hgb Hct MCV MCH MCHC RDW Plt Count Lymph % (Auto) [place] % (Auto) Lymph # [place] # Baso # Seg Neutrophils % Seg Neuts % (Manual) Lymphocytes % (Manual) Monocytes % (Manual) Eosinophils % (Manual) Basophils % (Manual) Nucleated RBC % Seg Neutrophils # Seg Neutrophils # Man Lymphocytes # (Manual) Monocytes # (Manual) Eosinophils # (Manual) PT INR Fibrinogen dRVVT Confirm Interp Factor V Activity POC ABG pH POC ABG pCO2 POC ABG pO2 ABG pO2 ABG HCO3 ABG Base Excess ABG Hemoglobin 7.0 L Oxyhemoglobin 94.9 L Sodium Potassium Chloride Carbon Dioxide BUN 73 H Creatinine 2.7 H Glucose POC Glucose 108 H Lactic Acid Calcium Phosphorus Magnesium Direct Bilirubin AST ALT Alkaline Phosphatase Lactate Dehydrogenase Troponin T C-Reactive Protein Total Protein Albumin Prealbumin Triglycerides Cholesterol LDL Cholesterol Direct HDL Cholesterol Urine pH Urine WBC (Auto) Urine Creatinine Urine Total Protein Fluid Total Protein Vancomycin Trough Rheumatoid Factor Complement C4 Miscellaneous Test Crossmatch 11/29/16 11/29/16 11/29/16 12:16 18:05 23:46 WBC RBC Hgb Hct MCV MCH MCHC RDW Plt Count Lymph % (Auto) [place] % (Auto) Lymph # [place] # Baso # Seg Neutrophils % Seg Neuts % (Manual) Lymphocytes % (Manual) Monocytes % (Manual) Eosinophils % (Manual) Basophils % (Manual) Nucleated RBC % Seg Neutrophils # Seg Neutrophils # Man Lymphocytes # (Manual) Monocytes # (Manual) Eosinophils # (Manual) PT INR Fibrinogen dRVVT Confirm Interp Factor V Activity POC ABG pH POC ABG pCO2 POC ABG pO2 ABG pO2 ABG HCO3 ABG Base Excess ABG Hemoglobin Oxyhemoglobin Sodium Potassium Chloride Carbon Dioxide BUN Creatinine Glucose POC Glucose 133 H 146 H 141 H Lactic Acid Calcium Phosphorus Magnesium Direct Bilirubin AST ALT Alkaline Phosphatase Lactate Dehydrogenase Troponin T C-Reactive Protein Total Protein Albumin Prealbumin Triglycerides Cholesterol LDL Cholesterol Direct HDL Cholesterol Urine pH Urine WBC (Auto) Urine Creatinine Urine Total Protein Fluid Total Protein Vancomycin Trough Rheumatoid Factor Complement C4 Miscellaneous Test Crossmatch 11/30/16 11/30/16 11/30/16 04:17 04:17 04:32 WBC 12.0 H RBC 2.80 L Hgb 7.8 L Hct 23.6 L MCV MCH MCHC RDW 16.6 H Plt Count Lymph % (Auto) [place] % (Auto) 11.3 H Lymph # [place] # 1.4 H Baso # Seg Neutrophils % Seg Neuts % (Manual) Lymphocytes % (Manual) Monocytes % (Manual) Eosinophils % (Manual) Basophils % (Manual) Nucleated RBC % Seg Neutrophils # 8.2 H Seg Neutrophils # Man Lymphocytes # (Manual) Monocytes # (Manual) Eosinophils # (Manual) PT INR Fibrinogen dRVVT Confirm Interp Factor V Activity POC ABG pH POC ABG pCO2 POC ABG pO2 ABG pO2 ABG HCO3 ABG Base Excess ABG Hemoglobin Oxyhemoglobin Sodium 169 H* D Potassium 5.1 H Chloride 121.5 H Carbon Dioxide BUN 34 H Creatinine 1.3 H D Glucose 133 H POC Glucose 131 H Lactic Acid Calcium 10.3 H Phosphorus Magnesium Direct Bilirubin AST ALT Alkaline Phosphatase Lactate Dehydrogenase Troponin T C-Reactive Protein Total Protein Albumin Prealbumin Triglycerides Cholesterol LDL Cholesterol Direct HDL Cholesterol Urine pH Urine WBC (Auto) Urine Creatinine Urine Total Protein Fluid Total Protein Vancomycin Trough Rheumatoid Factor Complement C4 Miscellaneous Test Crossmatch 11/30/16 11/30/16 11/30/16 05:45 11:10 17:26 WBC RBC Hgb Hct MCV MCH MCHC RDW Plt Count Lymph % (Auto) [place] % (Auto) Lymph # [place] # Baso # Seg Neutrophils % Seg Neuts % (Manual) Lymphocytes % (Manual) Monocytes % (Manual) Eosinophils % (Manual) Basophils % (Manual) Nucleated RBC % Seg Neutrophils # Seg Neutrophils # Man Lymphocytes # (Manual) Monocytes # (Manual) Eosinophils # (Manual) PT INR Fibrinogen dRVVT Confirm Interp Factor V Activity POC ABG pH POC ABG pCO2 POC ABG pO2 ABG pO2 ABG HCO3 ABG Base Excess ABG Hemoglobin Oxyhemoglobin Sodium Potassium Chloride Carbon Dioxide BUN 45 H Creatinine 1.6 H Glucose 131 H POC Glucose 146 H 134 H Lactic Acid Calcium Phosphorus Magnesium Direct Bilirubin AST ALT Alkaline Phosphatase Lactate Dehydrogenase Troponin T C-Reactive Protein Total Protein Albumin Prealbumin Triglycerides Cholesterol LDL Cholesterol Direct HDL Cholesterol Urine pH Urine WBC (Auto) Urine Creatinine Urine Total Protein Fluid Total Protein Vancomycin Trough Rheumatoid Factor Complement C4 Miscellaneous Test Crossmatch 11/30/16 12/01/16 12/01/16 23:35 00:06 03:35 WBC RBC Hgb Hct MCV MCH MCHC RDW Plt Count Lymph % (Auto) [place] % (Auto) Lymph # [place] # Baso # Seg Neutrophils % Seg Neuts % (Manual) Lymphocytes % (Manual) Monocytes % (Manual) Eosinophils % (Manual) Basophils % (Manual) Nucleated RBC % Seg Neutrophils # Seg Neutrophils # Man Lymphocytes # (Manual) Monocytes # (Manual) Eosinophils # (Manual) PT INR Fibrinogen dRVVT Confirm Interp Factor V Activity POC ABG pH POC ABG pCO2 POC ABG pO2 ABG pO2 ABG HCO3 ABG Base Excess ABG Hemoglobin 6.9 L Oxyhemoglobin Sodium Potassium Chloride Carbon Dioxide BUN 58 H Creatinine 1.8 H Glucose 146 H POC Glucose 151 H Lactic Acid Calcium Phosphorus Magnesium Direct Bilirubin AST ALT Alkaline Phosphatase Lactate Dehydrogenase Troponin T C-Reactive Protein Total Protein Albumin Prealbumin Triglycerides Cholesterol LDL Cholesterol Direct HDL Cholesterol Urine pH Urine WBC (Auto) Urine Creatinine Urine Total Protein Fluid Total Protein Vancomycin Trough Rheumatoid Factor Complement C4 Miscellaneous Test Crossmatch 12/01/16 12/01/16 12/01/16 03:35 05:47 11:52 WBC 12.3 H RBC 2.82 L Hgb 7.8 L Hct 23.7 L MCV MCH MCHC RDW 16.7 H Plt Count Lymph % (Auto) [place] % (Auto) 9.8 H Lymph # [place] # 1.2 H Baso # Seg Neutrophils % Seg Neuts % (Manual) Lymphocytes % (Manual) Monocytes % (Manual) Eosinophils % (Manual) Basophils % (Manual) Nucleated RBC % Seg Neutrophils # 8.4 H Seg Neutrophils # Man Lymphocytes # (Manual) Monocytes # (Manual) Eosinophils # (Manual) PT INR Fibrinogen dRVVT Confirm Interp Factor V Activity POC ABG pH POC ABG pCO2 POC ABG pO2 ABG pO2 ABG HCO3 ABG Base Excess ABG Hemoglobin Oxyhemoglobin Sodium Potassium Chloride Carbon Dioxide BUN Creatinine Glucose POC Glucose 152 H 152 H Lactic Acid Calcium Phosphorus Magnesium Direct Bilirubin AST ALT Alkaline Phosphatase Lactate Dehydrogenase Troponin T C-Reactive Protein Total Protein Albumin Prealbumin Triglycerides Cholesterol LDL Cholesterol Direct HDL Cholesterol Urine pH Urine WBC (Auto) Urine Creatinine Urine Total Protein Fluid Total Protein Vancomycin Trough Rheumatoid Factor Complement C4 Miscellaneous Test Crossmatch 12/01/16 12/01/16 12/02/16 17:40 23:41 05:00 WBC RBC Hgb Hct MCV MCH MCHC RDW Plt Count Lymph % (Auto) [place] % (Auto) Lymph # [place] # Baso # Seg Neutrophils % Seg Neuts % (Manual) Lymphocytes % (Manual) Monocytes % (Manual) Eosinophils % (Manual) Basophils % (Manual) Nucleated RBC % Seg Neutrophils # Seg Neutrophils # Man Lymphocytes # (Manual) Monocytes # (Manual) Eosinophils # (Manual) PT INR Fibrinogen dRVVT Confirm Interp Factor V Activity POC ABG pH POC ABG pCO2 POC ABG pO2 ABG pO2 ABG HCO3 ABG Base Excess ABG Hemoglobin Oxyhemoglobin Sodium Potassium Chloride Carbon Dioxide BUN 45 H Creatinine Glucose 115 H POC Glucose 140 H 144 H Lactic Acid Calcium Phosphorus Magnesium Direct Bilirubin AST ALT Alkaline Phosphatase Lactate Dehydrogenase Troponin T C-Reactive Protein Total Protein Albumin Prealbumin Triglycerides Cholesterol LDL Cholesterol Direct HDL Cholesterol Urine pH Urine WBC (Auto) Urine Creatinine Urine Total Protein Fluid Total Protein Vancomycin Trough Rheumatoid Factor Complement C4 Miscellaneous Test Crossmatch 12/02/16 12/02/16 12/02/16 05:31 11:20 17:38 WBC RBC Hgb Hct MCV MCH MCHC RDW Plt Count Lymph % (Auto) [place] % (Auto) Lymph # [place] # Baso # Seg Neutrophils % Seg Neuts % (Manual) Lymphocytes % (Manual) Monocytes % (Manual) Eosinophils % (Manual) Basophils % (Manual) Nucleated RBC % Seg Neutrophils # Seg Neutrophils # Man Lymphocytes # (Manual) Monocytes # (Manual) Eosinophils # (Manual) PT INR Fibrinogen dRVVT Confirm Interp Factor V Activity POC ABG pH POC ABG pCO2 POC ABG pO2 ABG pO2 ABG HCO3 ABG Base Excess ABG Hemoglobin Oxyhemoglobin Sodium Potassium Chloride Carbon Dioxide BUN Creatinine Glucose POC Glucose 136 H 177 H 139 H Lactic Acid Calcium Phosphorus Magnesium Direct Bilirubin AST ALT Alkaline Phosphatase Lactate Dehydrogenase Troponin T C-Reactive Protein Total Protein Albumin Prealbumin Triglycerides Cholesterol LDL Cholesterol Direct HDL Cholesterol Urine pH Urine WBC (Auto) Urine Creatinine Urine Total Protein Fluid Total Protein Vancomycin Trough Rheumatoid Factor Complement C4 Miscellaneous Test Crossmatch 12/02/16 12/03/16 12/03/16 23:43 04:00 04:00 WBC 20.4 H RBC 2.74 L Hgb 7.4 L Hct 23.6 L MCV MCH 27 L MCHC RDW 17.1 H Plt Count Lymph % (Auto) [place] % (Auto) Lymph # [place] # Baso # Seg Neutrophils % Seg Neuts % (Manual) 31.0 L Lymphocytes % (Manual) Monocytes % (Manual) Eosinophils % (Manual) Basophils % (Manual) Nucleated RBC % Seg Neutrophils # Seg Neutrophils # Man Lymphocytes # (Manual) Monocytes # (Manual) Eosinophils # (Manual) PT INR Fibrinogen dRVVT Confirm Interp Factor V Activity POC ABG pH POC ABG pCO2 POC ABG pO2 ABG pO2 ABG HCO3 ABG Base Excess ABG Hemoglobin Oxyhemoglobin Sodium Potassium Chloride Carbon Dioxide BUN 61 H Creatinine 1.6 H Glucose 119 H POC Glucose 158 H Lactic Acid Calcium Phosphorus Magnesium Direct Bilirubin AST ALT Alkaline Phosphatase Lactate Dehydrogenase Troponin T C-Reactive Protein Total Protein Albumin Prealbumin Triglycerides Cholesterol LDL Cholesterol Direct HDL Cholesterol Urine pH Urine WBC (Auto) Urine Creatinine Urine Total Protein Fluid Total Protein Vancomycin Trough Rheumatoid Factor Complement C4 Miscellaneous Test Crossmatch 12/03/16 12/03/16 12/03/16 05:02 12:11 18:16 WBC RBC Hgb Hct MCV MCH MCHC RDW Plt Count Lymph % (Auto) [place] % (Auto) Lymph # [place] # Baso # Seg Neutrophils % Seg Neuts % (Manual) Lymphocytes % (Manual) Monocytes % (Manual) Eosinophils % (Manual) Basophils % (Manual) Nucleated RBC % Seg Neutrophils # Seg Neutrophils # Man Lymphocytes # (Manual) Monocytes # (Manual) Eosinophils # (Manual) PT INR Fibrinogen dRVVT Confirm Interp Factor V Activity POC ABG pH POC ABG pCO2 POC ABG pO2 ABG pO2 ABG HCO3 ABG Base Excess ABG Hemoglobin Oxyhemoglobin Sodium Potassium Chloride Carbon Dioxide BUN Creatinine Glucose POC Glucose 146 H 157 H 124 H Lactic Acid Calcium Phosphorus Magnesium Direct Bilirubin AST ALT Alkaline Phosphatase Lactate Dehydrogenase Troponin T C-Reactive Protein Total Protein Albumin Prealbumin Triglycerides Cholesterol LDL Cholesterol Direct HDL Cholesterol Urine pH Urine WBC (Auto) Urine Creatinine Urine Total Protein Fluid Total Protein Vancomycin Trough Rheumatoid Factor Complement C4 Miscellaneous Test Crossmatch 12/03/16 12/04/16 12/04/16 23:41 04:00 04:45 WBC RBC Hgb Hct MCV MCH MCHC RDW Plt Count Lymph % (Auto) [place] % (Auto) Lymph # [place] # Baso # Seg Neutrophils % Seg Neuts % (Manual) Lymphocytes % (Manual) Monocytes % (Manual) Eosinophils % (Manual) Basophils % (Manual) Nucleated RBC % Seg Neutrophils # Seg Neutrophils # Man Lymphocytes # (Manual) Monocytes # (Manual) Eosinophils # (Manual) PT INR Fibrinogen dRVVT Confirm Interp Factor V Activity POC ABG pH POC ABG pCO2 POC ABG pO2 ABG pO2 ABG HCO3 ABG Base Excess ABG Hemoglobin Oxyhemoglobin Sodium Potassium Chloride Carbon Dioxide BUN 76 H Creatinine 1.6 H Glucose POC Glucose 130 H 136 H Lactic Acid Calcium Phosphorus Magnesium Direct Bilirubin AST ALT Alkaline Phosphatase 155 H Lactate Dehydrogenase Troponin T C-Reactive Protein Total Protein 5.5 L Albumin 1.5 L Prealbumin Triglycerides Cholesterol LDL Cholesterol Direct HDL Cholesterol Urine pH Urine WBC (Auto) Urine Creatinine Urine Total Protein Fluid Total Protein Vancomycin Trough Rheumatoid Factor Complement C4 Miscellaneous Test Crossmatch 12/04/16 12/04/16 12/05/16 12:08 17:23 00:10 WBC RBC Hgb Hct MCV MCH MCHC RDW Plt Count Lymph % (Auto) [place] % (Auto) Lymph # [place] # Baso # Seg Neutrophils % Seg Neuts % (Manual) Lymphocytes % (Manual) Monocytes % (Manual) Eosinophils % (Manual) Basophils % (Manual) Nucleated RBC % Seg Neutrophils # Seg Neutrophils # Man Lymphocytes # (Manual) Monocytes # (Manual) Eosinophils # (Manual) PT INR Fibrinogen dRVVT Confirm Interp Factor V Activity POC ABG pH POC ABG pCO2 POC ABG pO2 ABG pO2 ABG HCO3 ABG Base Excess ABG Hemoglobin Oxyhemoglobin Sodium Potassium Chloride Carbon Dioxide BUN Creatinine Glucose POC Glucose 114 H 129 H 124 H Lactic Acid Calcium Phosphorus Magnesium Direct Bilirubin AST ALT Alkaline Phosphatase Lactate Dehydrogenase Troponin T C-Reactive Protein Total Protein Albumin Prealbumin Triglycerides Cholesterol LDL Cholesterol Direct HDL Cholesterol Urine pH Urine WBC (Auto) Urine Creatinine Urine Total Protein Fluid Total Protein Vancomycin Trough Rheumatoid Factor Complement C4 Miscellaneous Test Crossmatch 12/05/16 12/05/16 12/05/16 05:00 05:00 05:18 WBC RBC Hgb Hct MCV MCH MCHC RDW Plt Count Lymph % (Auto) [place] % (Auto) Lymph # [place] # Baso # Seg Neutrophils % Seg Neuts % (Manual) Lymphocytes % (Manual) Monocytes % (Manual) Eosinophils % (Manual) Basophils % (Manual) Nucleated RBC % Seg Neutrophils # Seg Neutrophils # Man Lymphocytes # (Manual) Monocytes # (Manual) Eosinophils # (Manual) PT INR Fibrinogen dRVVT Confirm Interp Factor V Activity POC ABG pH POC ABG pCO2 POC ABG pO2 ABG pO2 ABG HCO3 ABG Base Excess ABG Hemoglobin Oxyhemoglobin Sodium Potassium Chloride Carbon Dioxide 21 L BUN 85 H Creatinine 1.9 H Glucose 131 H POC Glucose 154 H Lactic Acid Calcium Phosphorus Magnesium Direct Bilirubin AST ALT Alkaline Phosphatase Lactate Dehydrogenase Troponin T C-Reactive Protein 19.30 H Total Protein Albumin Prealbumin Triglycerides Cholesterol LDL Cholesterol Direct HDL Cholesterol Urine pH Urine WBC (Auto) Urine Creatinine Urine Total Protein Fluid Total Protein Vancomycin Trough Rheumatoid Factor Complement C4 Miscellaneous Test Crossmatch 12/05/16 12/05/16 12/05/16 11:43 17:46 23:25 WBC RBC Hgb Hct MCV MCH MCHC RDW Plt Count Lymph % (Auto) [place] % (Auto) Lymph # [place] # Baso # Seg Neutrophils % Seg Neuts % (Manual) Lymphocytes % (Manual) Monocytes % (Manual) Eosinophils % (Manual) Basophils % (Manual) Nucleated RBC % Seg Neutrophils # Seg Neutrophils # Man Lymphocytes # (Manual) Monocytes # (Manual) Eosinophils # (Manual) PT INR Fibrinogen dRVVT Confirm Interp Factor V Activity POC ABG pH POC ABG pCO2 POC ABG pO2 ABG pO2 ABG HCO3 ABG Base Excess ABG Hemoglobin Oxyhemoglobin Sodium Potassium Chloride Carbon Dioxide BUN Creatinine Glucose POC Glucose 117 H 113 H 111 H Lactic Acid Calcium Phosphorus Magnesium Direct Bilirubin AST ALT Alkaline Phosphatase Lactate Dehydrogenase Troponin T C-Reactive Protein Total Protein Albumin Prealbumin Triglycerides Cholesterol LDL Cholesterol Direct HDL Cholesterol Urine pH Urine WBC (Auto) Urine Creatinine Urine Total Protein Fluid Total Protein Vancomycin Trough Rheumatoid Factor Complement C4 Miscellaneous Test Crossmatch 12/05/16 12/06/16 12/06/16 Unknown 04:58 06:00 WBC RBC Hgb Hct MCV MCH MCHC RDW Plt Count Lymph % (Auto) [place] % (Auto) Lymph # [place] # Baso # Seg Neutrophils % Seg Neuts % (Manual) Lymphocytes % (Manual) Monocytes % (Manual) Eosinophils % (Manual) Basophils % (Manual) Nucleated RBC % Seg Neutrophils # Seg Neutrophils # Man Lymphocytes # (Manual) Monocytes # (Manual) Eosinophils # (Manual) PT INR Fibrinogen dRVVT Confirm Interp Factor V Activity POC ABG pH POC ABG pCO2 POC ABG pO2 ABG pO2 75.2 L ABG HCO3 ABG Base Excess -3.4 L ABG Hemoglobin 7.4 L Oxyhemoglobin 94.5 L Sodium Potassium Chloride Carbon Dioxide 20 L BUN 99 H Creatinine 2.1 H Glucose 126 H POC Glucose 145 H Lactic Acid Calcium Phosphorus 4.80 H Magnesium Direct Bilirubin AST ALT Alkaline Phosphatase Lactate Dehydrogenase Troponin T C-Reactive Protein Total Protein Albumin Prealbumin Triglycerides Cholesterol LDL Cholesterol Direct HDL Cholesterol Urine pH Urine WBC (Auto) Urine Creatinine Urine Total Protein Fluid Total Protein Vancomycin Trough Rheumatoid Factor Complement C4 Miscellaneous Test Crossmatch 12/06/16 12/06/16 12/06/16 06:46 11:54 17:55 WBC RBC Hgb 8.3 L Hct 26.4 L MCV MCH MCHC RDW Plt Count Lymph % (Auto) [place] % (Auto) Lymph # [place] # Baso # Seg Neutrophils % Seg Neuts % (Manual) Lymphocytes % (Manual) Monocytes % (Manual) Eosinophils % (Manual) Basophils % (Manual) Nucleated RBC % Seg Neutrophils # Seg Neutrophils # Man Lymphocytes # (Manual) Monocytes # (Manual) Eosinophils # (Manual) PT INR Fibrinogen dRVVT Confirm Interp Factor V Activity POC ABG pH POC ABG pCO2 POC ABG pO2 ABG pO2 ABG HCO3 ABG Base Excess ABG Hemoglobin Oxyhemoglobin Sodium Potassium Chloride Carbon Dioxide BUN Creatinine Glucose POC Glucose 126 H 157 H Lactic Acid Calcium Phosphorus Magnesium Direct Bilirubin AST ALT Alkaline Phosphatase Lactate Dehydrogenase Troponin T C-Reactive Protein Total Protein Albumin Prealbumin Triglycerides Cholesterol LDL Cholesterol Direct HDL Cholesterol Urine pH Urine WBC (Auto) Urine Creatinine Urine Total Protein Fluid Total Protein Vancomycin Trough Rheumatoid Factor Complement C4 Miscellaneous Test Crossmatch 12/06/16 12/07/16 12/07/16 23:59 05:34 06:30 WBC RBC Hgb Hct MCV MCH MCHC RDW Plt Count Lymph % (Auto) [place] % (Auto) Lymph # [place] # Baso # Seg Neutrophils % Seg Neuts % (Manual) Lymphocytes % (Manual) Monocytes % (Manual) Eosinophils % (Manual) Basophils % (Manual) Nucleated RBC % Seg Neutrophils # Seg Neutrophils # Man Lymphocytes # (Manual) Monocytes # (Manual) Eosinophils # (Manual) PT INR Fibrinogen dRVVT Confirm Interp Factor V Activity POC ABG pH POC ABG pCO2 POC ABG pO2 ABG pO2 ABG HCO3 ABG Base Excess ABG Hemoglobin Oxyhemoglobin Sodium Potassium Chloride Carbon Dioxide BUN 67 H Creatinine 1.4 H Glucose 126 H POC Glucose 129 H 129 H Lactic Acid Calcium Phosphorus Magnesium Direct Bilirubin AST ALT Alkaline Phosphatase Lactate Dehydrogenase Troponin T C-Reactive Protein Total Protein Albumin Prealbumin Triglycerides Cholesterol LDL Cholesterol Direct HDL Cholesterol Urine pH Urine WBC (Auto) Urine Creatinine Urine Total Protein Fluid Total Protein Vancomycin Trough Rheumatoid Factor Complement C4 Miscellaneous Test Crossmatch 12/07/16 12/07/16 12/07/16 06:30 08:00 09:45 WBC 18.8 H RBC 2.52 L Hgb 6.9 L 6.8 L Hct 21.2 L 21.1 L MCV MCH 27 L MCHC RDW 18.0 H Plt Count Lymph % (Auto) [place] % (Auto) 9.9 H Lymph # [place] # 1.9 H Baso # Seg Neutrophils % 71.8 H Seg Neuts % (Manual) Lymphocytes % (Manual) Monocytes % (Manual) Eosinophils % (Manual) Basophils % (Manual) Nucleated RBC % Seg Neutrophils # 13.5 H Seg Neutrophils # Man Lymphocytes # (Manual) Monocytes # (Manual) Eosinophils # (Manual) PT INR Fibrinogen dRVVT Confirm Interp Factor V Activity POC ABG pH POC ABG pCO2 POC ABG pO2 ABG pO2 ABG HCO3 ABG Base Excess ABG Hemoglobin Oxyhemoglobin Sodium Potassium Chloride Carbon Dioxide BUN Creatinine Glucose POC Glucose Lactic Acid Calcium Phosphorus Magnesium Direct Bilirubin AST ALT Alkaline Phosphatase Lactate Dehydrogenase Troponin T C-Reactive Protein Total Protein Albumin Prealbumin Triglycerides Cholesterol LDL Cholesterol Direct HDL Cholesterol Urine pH Urine WBC (Auto) Urine Creatinine Urine Total Protein Fluid Total Protein Vancomycin Trough Rheumatoid Factor Complement C4 Miscellaneous Test Crossmatch See Detail 12/07/16 12/07/16 12/07/16 11:44 18:19 23:59 WBC RBC Hgb Hct MCV MCH MCHC RDW Plt Count Lymph % (Auto) [place] % (Auto) Lymph # [place] # Baso # Seg Neutrophils % Seg Neuts % (Manual) Lymphocytes % (Manual) Monocytes % (Manual) Eosinophils % (Manual) Basophils % (Manual) Nucleated RBC % Seg Neutrophils # Seg Neutrophils # Man Lymphocytes # (Manual) Monocytes # (Manual) Eosinophils # (Manual) PT INR Fibrinogen dRVVT Confirm Interp Factor V Activity POC ABG pH POC ABG pCO2 POC ABG pO2 ABG pO2 ABG HCO3 ABG Base Excess ABG Hemoglobin Oxyhemoglobin Sodium Potassium Chloride Carbon Dioxide BUN Creatinine Glucose POC Glucose 137 H 138 H 133 H Lactic Acid Calcium Phosphorus Magnesium Direct Bilirubin AST ALT Alkaline Phosphatase Lactate Dehydrogenase Troponin T C-Reactive Protein Total Protein Albumin Prealbumin Triglycerides Cholesterol LDL Cholesterol Direct HDL Cholesterol Urine pH Urine WBC (Auto) Urine Creatinine Urine Total Protein Fluid Total Protein Vancomycin Trough Rheumatoid Factor Complement C4 Miscellaneous Test Crossmatch 12/08/16 12/08/16 12/08/16 05:25 05:30 05:30 WBC 23.8 H RBC 2.88 L Hgb 8.1 L Hct 24.3 L MCV MCH MCHC RDW 16.7 H Plt Count Lymph % (Auto) [place] % (Auto) Lymph # [place] # Baso # Seg Neutrophils % Seg Neuts % (Manual) 76.0 H Lymphocytes % (Manual) 9.0 L Monocytes % (Manual) 9.0 H Eosinophils % (Manual) Basophils % (Manual) Nucleated RBC % Seg Neutrophils # Seg Neutrophils # Man 18.1 H Lymphocytes # (Manual) Monocytes # (Manual) 2.1 H Eosinophils # (Manual) PT INR Fibrinogen dRVVT Confirm Interp Factor V Activity POC ABG pH POC ABG pCO2 POC ABG pO2 ABG pO2 ABG HCO3 ABG Base Excess ABG Hemoglobin Oxyhemoglobin Sodium Potassium Chloride Carbon Dioxide 21 L BUN 76 H Creatinine 1.6 H Glucose 133 H POC Glucose 177 H Lactic Acid Calcium Phosphorus Magnesium Direct Bilirubin AST ALT Alkaline Phosphatase Lactate Dehydrogenase Troponin T C-Reactive Protein Total Protein Albumin Prealbumin Triglycerides Cholesterol LDL Cholesterol Direct HDL Cholesterol Urine pH Urine WBC (Auto) Urine Creatinine Urine Total Protein Fluid Total Protein Vancomycin Trough Rheumatoid Factor Complement C4 Miscellaneous Test Crossmatch 12/08/16 12/08/16 12/09/16 11:45 18:00 00:00 WBC RBC Hgb Hct MCV MCH MCHC RDW Plt Count Lymph % (Auto) [place] % (Auto) Lymph # [place] # Baso # Seg Neutrophils % Seg Neuts % (Manual) Lymphocytes % (Manual) Monocytes % (Manual) Eosinophils % (Manual) Basophils % (Manual) Nucleated RBC % Seg Neutrophils # Seg Neutrophils # Man Lymphocytes # (Manual) Monocytes # (Manual) Eosinophils # (Manual) PT INR Fibrinogen dRVVT Confirm Interp Factor V Activity POC ABG pH POC ABG pCO2 POC ABG pO2 ABG pO2 ABG HCO3 ABG Base Excess ABG Hemoglobin Oxyhemoglobin Sodium Potassium Chloride Carbon Dioxide BUN Creatinine Glucose POC Glucose 163 H 123 H 137 H Lactic Acid Calcium Phosphorus Magnesium Direct Bilirubin AST ALT Alkaline Phosphatase Lactate Dehydrogenase Troponin T C-Reactive Protein Total Protein Albumin Prealbumin Triglycerides Cholesterol LDL Cholesterol Direct HDL Cholesterol Urine pH Urine WBC (Auto) Urine Creatinine Urine Total Protein Fluid Total Protein Vancomycin Trough Rheumatoid Factor Complement C4 Miscellaneous Test Crossmatch 12/09/16 12/09/16 12/09/16 05:34 06:00 06:00 WBC 15.5 H RBC 2.87 L Hgb 8.0 L Hct 24.2 L MCV MCH MCHC RDW 17.2 H Plt Count Lymph % (Auto) [place] % (Auto) 11.6 H Lymph # [place] # 1.8 H Baso # Seg Neutrophils % 70.8 H Seg Neuts % (Manual) Lymphocytes % (Manual) Monocytes % (Manual) Eosinophils % (Manual) Basophils % (Manual) Nucleated RBC % Seg Neutrophils # 11.0 H Seg Neutrophils # Man Lymphocytes # (Manual) Monocytes # (Manual) Eosinophils # (Manual) PT INR Fibrinogen dRVVT Confirm Interp Factor V Activity POC ABG pH POC ABG pCO2 POC ABG pO2 ABG pO2 ABG HCO3 ABG Base Excess ABG Hemoglobin Oxyhemoglobin Sodium Potassium Chloride Carbon Dioxide BUN 51 H Creatinine Glucose 117 H POC Glucose 136 H Lactic Acid Calcium Phosphorus Magnesium Direct Bilirubin AST ALT Alkaline Phosphatase Lactate Dehydrogenase Troponin T C-Reactive Protein Total Protein Albumin Prealbumin Triglycerides Cholesterol LDL Cholesterol Direct HDL Cholesterol Urine pH Urine WBC (Auto) Urine Creatinine Urine Total Protein Fluid Total Protein Vancomycin Trough Rheumatoid Factor Complement C4 Miscellaneous Test Crossmatch Allied health notes reviewed: RT
[2016-12-09] MEDS: ROBINUL PO SCH ×2 (10:38→23:09)
[2016-12-09] MEDS: NORVASC PO SCH (10:38)
[2016-12-09] MEDS: PROTONIX FEEDTUBE SCH (10:38)
[2016-12-09] MEDS: HEPARIN SUB-Q SCH ×2 (10:39→23:10)
--- NOTE | 2016-12-09 12:36 | Progress Note ---
Assessment and Plan Assessment and plan: Patient is 46-year-old woman with a history of hypertension, diabetes, asthma, hyperlipidemia, chronic kidney disease and anxiety , who was brought in by family because, she couldn't get her words out, her face was also twisted, she was admitted for acute CVA and accelerated hypertension, she had a hx of poor adherence with her medications, and uncontrolled htn. Patient's SBP on admission was noted be greater than 260. TPA was started but this was discontinued after 5 minutes because her blood pressure became uncontrolled. The TPA was not initiated again because the patient was outside the TPA window. Patient has had a prolonged hospital stay complicated with recurrent severe sepsis. Patient with most recent event also status post cardiac arrest on and received CPR. --Severe Sepsis with septic shock, recurrent. Patient with multiple episodes of sepsis. Initial episode due to presumed aspiration pneumonia and septic episode on 09/23 from candidemia then a third episode from peritonitis from gastric perforation from dislodged PEG +/-UTI. Patient was also noted to have had Candidemia with Blood cultures positive for Silvia albicans 09/23, 09/25 but negative on 09/30. Antibiotic discontinued on 12/05 per ID. patient is s/p R thoracentesis on 11/14, 240cc of serous fluid removed, cx of fluid was negative.also Stool negative for C. difficile --Surgical wound infection/gram-negative sepsis/candidemia/peritonitis. PEG has been removed and pus is drained from the PEG site and patient is Currently on tube feeding. Continue wound care to ostomy sites --Acute hypoxic respiratory failure, status post tracheostomy Continue vent weaning. PSV trials. Pulmonary following --Acute massive CVA with mass effect; continue antiplatelets and statins -Neurology input appreciated CT shows continued evolution of left MCA infarct with slight mass effect and edema, and there is no hemorrhage -PRINCE showed hyperdynamic with ef of 75%, neither clot nor septal defect seen -MRA Brain shows near complete occlusion of M2 and M3 of the left MCA Repeat CT scan done on 09/11, shows stable findings carotid doppler negative -Echo shows preserved systolic function but does show some left ventricular diastolic dysfunction -continue asa and statin --Oliguric acute kidney injury. Etiology secondary to ATN on CKD. Baseline creatinine is approximately 1.7. --Paroxysmal atrial fibrillation with rapid ventricular rate, failed cardioversion Continue current medications, Not a candidate for anticoagulation secondary to anemia thrombocytopenia and massive CVA --Anemia; probably secondary to GI bleeding Patient received multiple units of PRBC in the past, hemoglobin has trended down to 6.8. Type and cross and transfuse 1 unit re-consult GI if needed Recheck Hemoccult stool -Toxic metabolic encephalopathy; supportive care --Diabetes mellitus type 2, Insulin/SSI --Severe protein caloric malnutrition, cont TPN --s/p Thrombocytopenia. Now resolved --DVT prophylaxis, SCDs, no pharmacological agent given anemia , thrombocytopenia, massive stroke --Full code status, very poor prognosis Dispo. Very poor prognosis has been explained by the hospitalist group and the cardroom attendant but the family currently refusing hospice evaluation. The family would like to continue aggressive care. The high probability of a clinically significant, sudden or life threatening deterioration of the [respiratory, GI, immunological and cardiovascular] system( s) required my full and direct attention, intervention and personal management. The aggregate critical care time was [31] minutes. This time is in addition to time spent performing reported procedures but includes the following: [x] Data Review and interpretation [x] Patient assessment and monitoring of vital signs [x] Documentation [x] Medication orders and management History Interval history: No new issues overnight. Hospitalist Physical - Constitutional Vitals: Temp Pulse Resp BP Pulse Ox 98.2 F 100 H 23 128/80 100 12/09/16 08:00 12/09/16 10:38 12/09/16 10:30 12/09/16 10:38 12/09/16 10:30 General appearance: Present: no acute distress - EENT Eyes: Present: PERRL, EOM intact ENT: hearing intact, clear oral mucosa, dentition normal - Neck Neck: Present: supple, normal ROM - Respiratory Respiratory effort: normal Respiratory: bilateral: CTA - Cardiovascular Rhythm: regular Heart Sounds: Present: S1 & S2. Absent: gallop, rub - Extremities Extremities: no ischemia, No edema, Full ROM - Abdominal General gastrointestinal: soft, non-tender, non-distended, normal bowel sounds - Integumentary Integumentary: Present: clear, warm, dry - Neurologic Neurologic: CNII-XII intact, moves all extremities Results - Labs CBC & Chem 7: 12/09/16 06:00 12/09/16 06:00 Labs: Laboratory Last Values WBC 15.5 K/mm3 (4.5-11.0) H 12/09/16 06:00 RBC 2.87 M/mm3 (3.65-5.03) L 12/09/16 06:00 Hgb 8.0 gm/dl (10.1-14.3) L 12/09/16 06:00 Hct 24.2 % (30.3-42.9) L 12/09/16 06:00 MCV 85 fl (79-97) 12/09/16 06:00 MCH 28 pg (28-32) 12/09/16 06:00 MCHC 33 % (30-34) 12/09/16 06:00 RDW 17.2 % (13.2-15.2) H 12/09/16 06:00 Plt Count 303 K/mm3 (140-440) 12/09/16 06:00 Lymph % (Auto) 16.5 % (13.4-35.0) 12/09/16 06:00 Swain % (Auto) 11.6 % (0.0-7.3) H 12/09/16 06:00 Eos % (Auto) 0.8 % (0.0-4.3) 12/09/16 06:00 Baso % (Auto) 0.3 % (0.0-1.8) 12/09/16 06:00 Lymph # 2.6 K/mm3 (1.2-5.4) 12/09/16 06:00 Swain # 1.8 K/mm3 (0.0-0.8) H 12/09/16 06:00 Eos # 0.1 K/mm3 (0.0-0.4) 12/09/16 06:00 Baso # 0.0 K/mm3 (0.0-0.1) 12/09/16 06:00 Add Manual Diff Complete 12/08/16 05:30 Total Counted 100 12/08/16 05:30 Seg Neutrophils % 70.8 % (40.0-70.0) H 12/09/16 06:00 Seg Neuts % (Manual) 76.0 % (40.0-70.0) H 12/08/16 05:30 Band Neutrophils % 6.0 % 12/08/16 05:30 Lymphocytes % (Manual) 9.0 % (13.4-35.0) L 12/08/16 05:30 Reactive Lymphs % (Man) 0 % 12/08/16 05:30 Monocytes % (Manual) 9.0 % (0.0-7.3) H 12/08/16 05:30 Eosinophils % (Manual) 0 % (0.0-4.3) 12/08/16 05:30 Basophils % (Manual) 0 % (0.0-1.8) 12/08/16 05:30 Metamyelocytes % 0 % 12/08/16 05:30 Myelocytes % 0 % 12/08/16 05:30 Promyelocytes % 0 % 12/08/16 05:30 Blast Cells % 0 % 12/08/16 05:30 Nucleated RBC % Not Reportable 12/08/16 05:30 Seg Neutrophils # 11.0 K/mm3 (1.8-7.7) H 12/09/16 06:00 Seg Neutrophils # Man 18.1 K/mm3 (1.8-7.7) H 12/08/16 05:30 Band Neutrophils # 1.4 K/mm3 12/08/16 05:30 Lymphocytes # (Manual) 2.1 K/mm3 (1.2-5.4) 12/08/16 05:30 Abs React Lymphs (Man) 0.0 K/mm3 12/08/16 05:30 Monocytes # (Manual) 2.1 K/mm3 (0.0-0.8) H 12/08/16 05:30 Eosinophils # (Manual) 0.0 K/mm3 (0.0-0.4) 12/08/16 05:30 Basophils # (Manual) 0.0 K/mm3 (0.0-0.1) 12/08/16 05:30 Metamyelocytes # 0.0 K/mm3 12/08/16 05:30 Myelocytes # 0.0 K/mm3 12/08/16 05:30 Promyelocytes # 0.0 K/mm3 12/08/16 05:30 Blast Cells # 0.0 K/mm3 12/08/16 05:30 Pathologist Review 09/13/16 04:00 WBC Morphology Not Reportable 12/08/16 05:30 Hypersegmented Neuts Not Reportable 12/08/16 05:30 Hyposegmented Neuts Not Reportable 12/08/16 05:30 Hypogranular Neuts Not Reportable 12/08/16 05:30 Smudge Cells Not Reportable 12/08/16 05:30 Toxic Granulation Not Reportable 12/08/16 05:30 Toxic Vacuolation Not Reportable 12/08/16 05:30 Dohle Bodies Not Reportable 12/08/16 05:30 Pelger-Huet Anomaly Not Reportable 12/08/16 05:30 Jasmina Rods Not Reportable 12/08/16 05:30 Platelet Estimate Appears normal 12/08/16 05:30 Clumped Platelets Not Reportable 12/08/16 05:30 Plt Clumps, EDTA Not Reportable 12/08/16 05:30 Large Platelets Not Reportable 12/08/16 05:30 Giant Platelets Not Reportable 12/08/16 05:30 Platelet Satelliting Not Reportable 12/08/16 05:30 Plt Morphology Comment Not Reportable 12/08/16 05:30 RBC Morphology Not Reportable 12/08/16 05:30 Dimorphic RBCs Not Reportable 12/08/16 05:30 Polychromasia Not Reportable 12/08/16 05:30 Hypochromasia Few 12/08/16 05:30 Poikilocytosis Not Reportable 12/08/16 05:30 Anisocytosis 1+ 12/08/16 05:30 Microcytosis Few 12/08/16 05:30 Macrocytosis Not Reportable 12/08/16 05:30 Spherocytes Not Reportable 12/08/16 05:30 Pappenheimer Bodies Not Reportable 12/08/16 05:30 Sickle Cells Not Reportable 12/08/16 05:30 Target Cells Not Reportable 12/08/16 05:30 Tear Drop Cells Not Reportable 12/08/16 05:30 Ovalocytes 1+ 12/08/16 05:30 Stomatocytes Rare 12/03/16 04:00 Helmet Cells Not Reportable 12/08/16 05:30 [place] Bodies Not Reportable 12/08/16 05:30 [place] Rings Not Reportable 12/08/16 05:30 [place] Cells Rare 12/08/16 05:30 Bite Cells Not Reportable 12/08/16 05:30 Crenated Cell Not Reportable 12/08/16 05:30 Elliptocytes Not Reportable 12/08/16 05:30 Acanthocytes (Spur) Not Reportable 12/08/16 05:30 Rouleaux Not Reportable 12/08/16 05:30 Hemoglobin C Crystals Not Reportable 12/08/16 05:30 Schistocytes Not Reportable 12/08/16 05:30 Malaria parasites Not Reportable 12/08/16 05:30 ESR > 140.0 mm/Hr (0-20) 09/08/16 11:48 Jun Bodies Not Reportable 12/08/16 05:30 Hem Pathologist Commnt No 12/08/16 05:30 PT 16.8 Sec. (12.2-14.9) H 11/17/16 03:20 INR 1.37 (0.87-1.13) H 11/17/16 03:20 APTT 33.0 Sec. (24.2-36.6) 10/09/16 03:45 Thrombin Time 16.8 Sec. (15.1-19.6) 09/03/16 00:10 Fibrinogen 750 mg/dl (211-480) H 09/08/16 11:48 Lupus Anticoagulant see below 09/12/16 09:59 LA PTT Baseline See scanned report 09/12/16 09:59 dRVVT Confirm Interp Positive (Negative) H 09/12/16 09:59 dRVVT Screen 50:50 See scanned report 09/12/16 09:59 dRVVT Mix Interpret See scanned report 09/12/16 09:59 Protein C Antigen 122 % (70-140) 09/08/16 15:35 Free Protein S 97 % normal (50-147) 09/08/16 15:35 Total Protein S 109 % (70-140) 09/08/16 15:35 Antithrombin III Ag 100 % (80-120) 09/08/16 15:35 Heparin Anti-Xa, Unfract Negative (Negative) 09/29/16 13:35 Factor V Activity 182 % (65-150) H 09/08/16 15:35 POC ABG pH 7.487 (7.35-7.45) H 11/25/16 14:12 ABG pH 7.450 pH Units (7.350-7.450) 12/05/16 Unknown POC ABG pCO2 39.0 (35-45) 11/25/16 14:12 ABG pCO2 29.6 mm Hg 12/05/16 Unknown POC ABG pO2 153 (80-105) H 11/25/16 14:12 ABG pO2 75.2 mm Hg (80.0-90.0) L 12/05/16 Unknown POC ABG HCO3 29.5 11/25/16 14:12 ABG HCO3 20.1 mmol/L (20.0-26.0) 12/05/16 Unknown POC ABG Total CO2 31 11/25/16 14:12 POC ABG O2 Sat 99 11/25/16 14:12 ABG O2 Saturation 96.8 % (95.0-99.0) 12/05/16 Unknown ABG O2 Content 9.9 (0.0-44) 12/05/16 Unknown POC ABG Base Excess 6 11/25/16 14:12 ABG Base Excess -3.4 mmol/L (-2.0-3.0) L 12/05/16 Unknown ABG Hemoglobin 7.4 gm/dl (12.0-16.0) L 12/05/16 Unknown ABG Carboxyhemoglobin 1.8 % (0.0-5.0) 12/05/16 Unknown ABG Methemoglobin 0.6 % (0.0-1.5) 12/05/16 Unknown Oxyhemoglobin 94.5 % (95.0-99.0) L 12/05/16 Unknown FiO2 30 % 12/05/16 Unknown Sodium 138 mmol/L (137-145) 12/09/16 06:00 Potassium 3.7 mmol/L (3.6-5.0) 12/09/16 06:00 Chloride 99.3 mmol/L (98-107) 12/09/16 06:00 Carbon Dioxide 25 mmol/L (22-30) 12/09/16 06:00 Anion Gap 17 mmol/L 12/09/16 06:00 BUN 51 mg/dL (7-17) H 12/09/16 06:00 Creatinine 1.2 mg/dL (0.7-1.2) 12/09/16 06:00 Estimated GFR 59 ml/min 12/09/16 06:00 BUN/Creatinine Ratio 43 % 12/09/16 06:00 Glucose 117 mg/dL (65-100) H 12/09/16 06:00 POC Glucose 139 (70-105) H 12/09/16 12:29 Osmolality 351 Mosm/kg 09/16/16 11:47 Lactic Acid 4.50 mmol/L (0.7-2.0) H* 09/28/16 07:25 Calcium 9.0 mg/dL (8.4-10.2) 12/09/16 06:00 Phosphorus 3.10 mg/dL (2.5-4.5) 12/08/16 05:30 Magnesium 1.70 mg/dL (1.7-2.3) 12/08/16 05:30 Total Bilirubin 0.20 mg/dL (0.1-1.2) 12/04/16 04:00 Direct Bilirubin 0.3 mg/dL (0-0.2) H 10/10/16 05:00 Indirect Bilirubin 0.1 mg/dL 10/10/16 05:00 AST 29 units/L (5-40) 12/04/16 04:00 ALT 43 units/L (7-56) 12/04/16 04:00 Alkaline Phosphatase 155 units/L (35-129) H 12/04/16 04:00 Ammonia 27.0 umol/L (25-60) 09/07/16 08:37 Lactate Dehydrogenase 196 units/L (91-180) H 11/11/16 06:59 Total Creatine Kinase 121 units/L (30-135) 09/29/16 20:12 CK-MB (CK-2) < 1.0 ng/mL (0.0-4.0) 09/29/16 20:12 CK-MB (CK-2) Rel Index 0.8 (0-4) 09/29/16 20:12 Troponin T 0.204 ng/mL (0.00-0.029) H* 09/29/16 20:12 C-Reactive Protein 19.30 mg/dL (0.00-1.30) H 12/05/16 05:00 Total Protein 5.5 g/dL (6.3-8.2) L 12/04/16 04:00 Albumin 1.5 g/dL (3.9-5) L 12/04/16 04:00 Albumin/Globulin Ratio 0.4 % 12/04/16 04:00 Prealbumin 0.180 g/L (0.200-0.400) L 11/06/16 06:25 Triglycerides 137 mg/dL (2-149) 09/29/16 20:12 Cholesterol 31 mg/dL (50-199) L 09/29/16 20:12 LDL Cholesterol Direct 4 mg/dL (50-130) L 09/29/16 20:12 HDL Cholesterol 3 mg/dL (40-59) L 09/29/16 20:12 Cholesterol/HDL Ratio 10.33 % 09/29/16 20:12 Angiotensin Convert Enz See scanned report 09/08/16 11:48 Renin 0.99 ng/mL/h (0.25-5.82) 10/07/16 10:56 Aldosterone <1 ng/dL () 10/07/16 10:56 Aldosterone/Renin Dir see below 10/07/16 10:56 Serotonin Release Assay See scanned report 09/29/16 13:35 TSH 1.010 mlU/mL (0.270-4.200) 09/07/16 08:37 HCG, Qual Negative (Negative) 09/03/16 00:10 Urine Color Yellow (Yellow) 11/05/16 13:09 Urine Turbidity Clear (Clear) 11/05/16 13:09 Urine pH 9.0 (5.0-7.0) H 11/05/16 13:09 Ur Specific [place] 1.011 (1.003-1.030) 11/05/16 13:09 Urine Protein 100 mg/dl mg/dL (Negative) 11/05/16 13:09 Urine Glucose (UA) Neg mg/dL (Negative) 11/05/16 13:09 Urine Ketones Neg mg/dL (Negative) 11/05/16 13:09 Urine Blood Neg (Negative) 11/05/16 13:09 Urine Nitrite Neg (Negative) 11/05/16 13:09 Urine Bilirubin Neg (Negative) 11/05/16 13:09 Urine Urobilinogen < 2.0 mg/dL (<2.0) 11/05/16 13:09 Ur Leukocyte Esterase Neg (Negative) 11/05/16 13:09 Urine WBC (Auto) 4.0 /HPF (0.0-6.0) 11/05/16 13:09 Urine RBC (Auto) 1.0 /HPF (0.0-6.0) 11/05/16 13:09 U Epithel Cells (Auto) 1.0 /HPF (0-13.0) 10/07/16 18:30 Urine Bacteria (Auto) 4+ /HPF (Negative) 11/05/16 13:09 Urine WBC Clumps 2+ /HPF 09/07/16 02:47 Hyaline Casts 4 /LPF 09/07/16 02:47 Urine Mucus Few /HPF 10/07/16 18:30 Urine Yeast (Budding) 3+ /HPF 10/07/16 18:30 Urine Eosinophils None seen (None Seen) 09/07/16 16:00 Urine Total Volume 950 11/12/16 10:18 Urine Creatinine 19.7 mg/dL (0.1-20.0) 11/12/16 10:18 Height (in) 65.0 inches 11/12/16 10:18 Weight (lb) 181.0 lbs 11/12/16 10:18 Creatinine Clearance 5 11/12/16 10:18 Urine Sodium 36 mEq/L 09/16/16 19:19 Urine Total Protein 16 mg/dL (5-11.8) H 09/16/16 19:19 Fluid Total Protein < 3.0 (15.0-45.0) L 11/10/16 14:20 Fluid LDH 123 11/10/16 14:20 Vancomycin Trough 2.3 ug/mL (5.0-20.0) L 09/21/16 13:00 Random Vancomycin 16.5 ug/mL (0-40.0) 11/28/16 09:45 Urine Opiates Screen Presumptive negative 09/03/16 15:11 Urine Methadone Screen Presumptive positive 09/03/16 15:11 Ur Barbiturates Screen Presumptive positive 09/03/16 15:11 Ur Phencyclidine Scrn Presumptive negative 09/03/16 15:11 Ur Amphetamines Screen Presumptive negative 09/03/16 15:11 U Benzodiazepines Scrn Presumptive negative 09/03/16 15:11 Urine Cocaine Screen Presumptive negative 09/03/16 15:11 U Marijuana (THC) Screen Presumptive positive 09/03/16 15:11 Drugs of Abuse Note Disclamer 09/03/16 15:11 Rheumatoid Factor 24 IU/ml (0-13) H 09/08/16 11:48 SAHIL Screen Negative (Negative) 09/07/16 09:20 Proteinase 3 (PR3) Ab <1.0 AI (<1.0) 09/07/16 09:20 Myeloperoxidase Ab <1.0 AI (<1.0) 09/07/16 09:20 Sjogren's Antibody <1.0 AI (<1.0) 09/08/16 15:35 Scl-70 Scleroderma Ab <1.0 AI (<1.0) 09/08/16 15:35 Centromere B Antibody <1.0 AI (<1.0) 09/08/16 12:02 Heparin-induced Plt Ab Negative (Negative) 09/29/16 13:35 UF Heparin High Dose 11 % Release 09/29/16 13:35 SUDHIR UFH Low Dose 0.1 6 % Release 09/29/16 13:35 SUDHIR UFH Low Dose 0.5 8 % Release 09/29/16 13:35 Cardiolipid IgG Ab <14 GPL (<=14) 09/12/16 09:59 Cardiolipid IgA Ab <11 APL (<=11) 09/12/16 09:59 Cardiolipid IgM Ab <12 MPL (<=12) 09/12/16 09:59 Complement C3 148 mg/dL (90-180) 09/07/16 09:20 Complement C4 58 mg/dL (16-47) H 09/07/16 09:20 RPR Nonreactive (Nonreactive) 09/08/16 11:48 Hepatitis A IgM Ab Non-reactive (NonReactive) 09/24/16 14:40 Hep Bs Antigen Non-reactive (Negative) 09/24/16 14:40 Hep B Core IgM Ab Non-reactive (NonReactive) 09/24/16 14:40 Hepatitis C Antibody Non-reactive (NonReactive) 09/24/16 14:40 HIV 1&2 Antibody Rapid Non react (Non React) 09/08/16 11:48 HIV P24 Antigen Non react (Non React) 09/08/16 11:48 Miscellaneous Test Flexitest 1 H 11/05/16 13:25 Blood Type A POSITIVE 12/07/16 09:45 Antibody Screen Negative 12/07/16 09:45 DELORIS Antibody Screen Negative 11/24/16 11:20 Crossmatch See Detail 12/07/16 09:45
--- NOTE | 2016-12-09 14:00 | Progress Note ---
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 appearance: Patient lying in bed, no apparent distress, 4. restraints HEENT: Normocephalic, atraumatic, pupils equally round and reactive to light, extraocular movement intact, and no sclericterus,. No JVD or thyromegaly or nodule,neck supple, no carotid bruit ,mucous membranes moist, unable to examine oral cavity Heart: S1, S2, regular rate and rhythm Lungs: Clear to auscultation bilaterally, breathing comfortable Abdomen: Positive bowel sounds, nontender, nondistended, no organomegaly Extremity: No edema, cyanosis, clubbing Skin: No rash, nodules, warm, dry Neuro: Difficult to assess, facial droop, moves all 4 extremities - Vital Signs Vital signs: Vital Signs - 12hr 12/09/16 12/09/16 12/09/16 02:00 02:30 03:00 Temperature Pulse Rate 98 H 96 H Pulse Rate [ Anterior Bilateral Throughout] Pulse Rate [ From Monitor] Respiratory 15 29 H Rate Respiratory Rate [Anterior Bilateral Throughout] Blood Pressure 138/99 167/100 155/98 O2 Sat by Pulse 100 Oximetry O2 Sat by Pulse Oximetry [ Assessment] 12/09/16 12/09/16 12/09/16 03:30 03:38 04:00 Temperature 97.9 F Pulse Rate 96 H 97 H Pulse Rate [ Anterior Bilateral Throughout] Pulse Rate [ From Monitor] Respiratory 22 17 Rate Respiratory Rate [Anterior Bilateral Throughout] Blood Pressure 143/98 152/96 O2 Sat by Pulse 100 100 Oximetry O2 Sat by Pulse Oximetry [ Assessment] 12/09/16 12/09/16 12/09/16 04:30 04:50 05:00 Temperature Pulse Rate 99 H 99 H Pulse Rate [ Anterior Bilateral Throughout] Pulse Rate [ 103 H From Monitor] Respiratory 25 H 22 21 Rate Respiratory Rate [Anterior Bilateral Throughout] Blood Pressure 151/98 146/94 O2 Sat by Pulse 100 100 100 Oximetry O2 Sat by Pulse Oximetry [ Assessment] 12/09/16 12/09/16 12/09/16 05:26 05:30 06:00 Temperature Pulse Rate 101 H 103 H 99 H Pulse Rate [ Anterior Bilateral Throughout] Pulse Rate [ From Monitor] Respiratory 23 16 Rate Respiratory Rate [Anterior Bilateral Throughout] Blood Pressure 144/96 161/98 154/92 O2 Sat by Pulse 100 100 Oximetry O2 Sat by Pulse Oximetry [ Assessment] 12/09/16 12/09/16 12/09/16 06:08 06:30 07:00 Temperature Pulse Rate 94 H 91 H 91 H Pulse Rate [ Anterior Bilateral Throughout] Pulse Rate [ From Monitor] Respiratory 12 16 Rate Respiratory Rate [Anterior Bilateral Throughout] Blood Pressure 154/92 136/86 128/81 O2 Sat by Pulse 100 100 Oximetry O2 Sat by Pulse Oximetry [ Assessment] 12/09/16 12/09/16 12/09/16 07:30 08:00 08:30 Temperature 98.2 F Pulse Rate 92 H 94 H 95 H Pulse Rate [ Anterior Bilateral Throughout] Pulse Rate [ 92 H From Monitor] Respiratory 11 L 16 8 L Rate Respiratory Rate [Anterior Bilateral Throughout] Blood Pressure 133/86 130/81 137/84 O2 Sat by Pulse 100 100 100 Oximetry O2 Sat by Pulse Oximetry [ Assessment] 12/09/16 12/09/16 12/09/16 08:40 09:00 09:02 Temperature Pulse Rate 97 H 101 H 98 H Pulse Rate [ 93 H 98 H Anterior Bilateral Throughout] Pulse Rate [ From Monitor] Respiratory 17 20 Rate Respiratory 29 H 23 Rate [Anterior Bilateral Throughout] Blood Pressure 131/80 137/86 137/86 O2 Sat by Pulse 100 100 100 Oximetry O2 Sat by Pulse Oximetry [ Assessment] 12/09/16 12/09/16 12/09/16 09:06 09:30 10:00 Temperature Pulse Rate 102 H 103 H Pulse Rate [ Anterior Bilateral Throughout] Pulse Rate [ From Monitor] Respiratory 23 28 H Rate Respiratory Rate [Anterior Bilateral Throughout] Blood Pressure 129/74 132/80 O2 Sat by Pulse 100 100 Oximetry O2 Sat by Pulse 100 Oximetry [ Assessment] 12/09/16 12/09/16 12/09/16 10:30 10:38 11:00 Temperature Pulse Rate 101 H 100 H 99 H Pulse Rate [ Anterior Bilateral Throughout] Pulse Rate [ From Monitor] Respiratory 23 27 H Rate Respiratory Rate [Anterior Bilateral Throughout] Blood Pressure 128/80 128/80 115/72 O2 Sat by Pulse 100 100 Oximetry O2 Sat by Pulse Oximetry [ Assessment] 12/09/16 12/09/16 12/09/16 12:00 12:28 12:36 Temperature 97.3 F L Pulse Rate 99 H 97 H Pulse Rate [ Anterior Bilateral Throughout] Pulse Rate [ From Monitor] Respiratory 16 23 Rate Respiratory Rate [Anterior Bilateral Throughout] Blood Pressure 122/72 O2 Sat by Pulse 100 100 100 Oximetry O2 Sat by Pulse Oximetry [ Assessment] 12/09/16 12/09/16 12/09/16 12:45 13:00 13:26 Temperature Pulse Rate 107 H 107 H 106 H Pulse Rate [ Anterior Bilateral Throughout] Pulse Rate [ From Monitor] Respiratory 15 Rate Respiratory Rate [Anterior Bilateral Throughout] Blood Pressure 121/76 144/87 144/87 O2 Sat by Pulse 60 L 100 Oximetry O2 Sat by Pulse Oximetry [ Assessment] - Lab 12/09/16 06:00 12/09/16 06:00 Most recent lab results ABG pH 7.450 pH Units (7.350-7.450) 12/05/16 Unknown ABG pCO2 29.6 mm Hg 12/05/16 Unknown ABG pO2 75.2 mm Hg (80.0-90.0) L 12/05/16 Unknown ABG HCO3 20.1 mmol/L (20.0-26.0) 12/05/16 Unknown ABG O2 Saturation 96.8 % (95.0-99.0) 12/05/16 Unknown Calcium 9.0 mg/dL (8.4-10.2) 12/09/16 06:00 Phosphorus 3.10 mg/dL (2.5-4.5) 12/08/16 05:30 Magnesium 1.70 mg/dL (1.7-2.3) 12/08/16 05:30 Urine Creatinine 19.7 mg/dL (0.1-20.0) 11/12/16 10:18 Urine Sodium 36 mEq/L 09/16/16 19:19 Urine Total Protein 16 mg/dL (5-11.8) H 09/16/16 19:19
--- NOTE | 2016-12-09 16:53 | Event Note ---
Date: 12/09/16 1. Failed t-piece trial 2. placed on AC re: trach tube leak; i did not hear a significant leak nor note significant TV loss when i re-evaluated her - we will continue current care
[2016-12-09] MEDS ORDERED: INTRALIPID 20% 250 ML IV SCH (20:00)
[2016-12-09] MEDS ORDERED: TPN ADULT IV SCH (20:00)
[2016-12-10] MEDS: DUONEB *Not for PRN Use IH SCH ×4 (02:04→19:41)
[2016-12-10] MEDS: LASIX IV SCH ×2 (05:24→17:33)
[2016-12-10] MEDS: APRESOLINE PO SCH ×3 (05:25→22:43)
[2016-12-10] MEDS: LOPRESSOR PO SCH ×4 (05:25→23:02)
[2016-12-10 06:58] LABS: Basophils # (Auto) 0.1 K/mm3 (0.0-0.1); Basophils % (Auto) 0.3 % (0.0-1.8); Eosinophils # (Auto) 0.1 K/mm3 (0.0-0.4); Eosinophils % (Auto) 0.4 % (0.0-4.3); Hematocrit 24.4 % (30.3-42.9); Hemoglobin 8.2 gm/dl (10.1-14.3); Lymphocytes # (Auto) 2.9 K/mm3 (1.2-5.4); Lymphocytes % (Auto) 18.2 % (13.4-35.0); Mean Corpuscular HGB Conc 34 % (30-34); Mean Corpuscular Hemoglobin 29 pg (28-32); Mean Corpuscular Volume 85 fl (79-97); Monocytes # (Auto) 1.3 K/mm3 (0.0-0.8); Monocytes % (Auto) 8.3 % (0.0-7.3); Platelet Count 332 K/mm3 (140-440); Red Blood Count 2.87 M/mm3 (3.65-5.03); Red Cell Distribution Width 17.2 % (13.2-15.2)
[2016-12-10] MEDS: HumuLIN R SUB-Q SCH ×4 (07:00→17:34)
[2016-12-10 07:21] LABS: Calcium 8.9 mg/dL (8.4-10.2)
[2016-12-10] MEDS: ROBINUL PO SCH ×2 (09:55→22:43)
[2016-12-10] MEDS: PROTONIX FEEDTUBE SCH (09:56)
[2016-12-10] MEDS: HEPARIN SUB-Q SCH ×2 (09:56→22:43)
[2016-12-10] MEDS: NORVASC PO SCH (09:56)
--- NOTE | 2016-12-10 10:36 | Progress Note ---
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 appearance: Patient lying in bed, no apparent distress, 4. restraints HEENT: Normocephalic, atraumatic, pupils equally round and reactive to light, extraocular movement intact, and no sclericterus,. No JVD or thyromegaly or nodule,neck supple, no carotid bruit ,mucous membranes moist, unable to examine oral cavity Heart: S1, S2, regular rate and rhythm Lungs: Clear to auscultation bilaterally, breathing comfortable Abdomen: Positive bowel sounds, nontender, nondistended, no organomegaly Extremity: No edema, cyanosis, clubbing Skin: No rash, nodules, warm, dry Neuro: Difficult to assess, facial droop, moves all 4 extremities - Vital Signs Vital signs: Vital Signs - 12hr 12/09/16 12/09/16 12/09/16 23:00 23:09 23:11 Temperature Pulse Rate 103 H 104 H 104 H Pulse Rate [ Anterior Bilateral Throughout] Pulse Rate [ From Monitor] Respiratory 18 Rate Respiratory Rate [Anterior Bilateral Throughout] Blood Pressure 155/96 155/96 155/96 O2 Sat by Pulse 100 Oximetry O2 Sat by Pulse Oximetry [ Assessment] 12/09/16 12/09/16 12/10/16 23:34 23:37 00:00 Temperature 97.7 F Pulse Rate 98 H 97 H Pulse Rate [ Anterior Bilateral Throughout] Pulse Rate [ 94 H From Monitor] Respiratory 25 H 26 H Rate Respiratory Rate [Anterior Bilateral Throughout] Blood Pressure 155/96 145/88 O2 Sat by Pulse 100 100 Oximetry O2 Sat by Pulse 99 Oximetry [ Assessment] 12/10/16 12/10/16 12/10/16 01:00 02:00 03:00 Temperature Pulse Rate 100 H 99 H 102 H Pulse Rate [ 97 H Anterior Bilateral Throughout] Pulse Rate [ From Monitor] Respiratory 29 H 15 11 L Rate Respiratory 20 Rate [Anterior Bilateral Throughout] Blood Pressure 155/95 148/89 164/91 O2 Sat by Pulse 100 100 100 Oximetry O2 Sat by Pulse Oximetry [ Assessment] 12/10/16 12/10/16 12/10/16 04:00 04:29 05:00 Temperature 96.9 F L Pulse Rate 103 H 101 H 102 H Pulse Rate [ Anterior Bilateral Throughout] Pulse Rate [ 106 H From Monitor] Respiratory 16 14 18 Rate Respiratory Rate [Anterior Bilateral Throughout] Blood Pressure 164/99 164/99 161/99 O2 Sat by Pulse 100 100 100 Oximetry O2 Sat by Pulse Oximetry [ Assessment] 12/10/16 12/10/16 12/10/16 05:25 06:01 07:00 Temperature Pulse Rate 102 H 88 87 Pulse Rate [ Anterior Bilateral Throughout] Pulse Rate [ From Monitor] Respiratory 27 H 17 Rate Respiratory Rate [Anterior Bilateral Throughout] Blood Pressure 161/99 161/99 139/80 O2 Sat by Pulse 100 100 Oximetry O2 Sat by Pulse Oximetry [ Assessment] 12/10/16 12/10/16 12/10/16 07:53 08:00 08:44 Temperature 97.5 F L Pulse Rate 89 Pulse Rate [ 89 Anterior Bilateral Throughout] Pulse Rate [ 85 From Monitor] Respiratory 30 H Rate Respiratory 30 H Rate [Anterior Bilateral Throughout] Blood Pressure 120/71 O2 Sat by Pulse 100 100 Oximetry O2 Sat by Pulse Oximetry [ Assessment] 12/10/16 12/10/16 08:55 09:56 Temperature Pulse Rate 88 Pulse Rate [ 88 Anterior Bilateral Throughout] Pulse Rate [ From Monitor] Respiratory Rate Respiratory 19 Rate [Anterior Bilateral Throughout] Blood Pressure 158/87 O2 Sat by Pulse Oximetry O2 Sat by Pulse Oximetry [ Assessment] - Lab 12/10/16 05:00 12/10/16 05:00 Most recent lab results ABG pH 7.450 pH Units (7.350-7.450) 12/05/16 Unknown ABG pCO2 29.6 mm Hg 12/05/16 Unknown ABG pO2 75.2 mm Hg (80.0-90.0) L 12/05/16 Unknown ABG HCO3 20.1 mmol/L (20.0-26.0) 12/05/16 Unknown ABG O2 Saturation 96.8 % (95.0-99.0) 12/05/16 Unknown Calcium 8.9 mg/dL (8.4-10.2) 12/10/16 05:00 Phosphorus 2.70 mg/dL (2.5-4.5) 12/10/16 05:00 Magnesium 1.70 mg/dL (1.7-2.3) 12/08/16 05:30 Urine Creatinine 19.7 mg/dL (0.1-20.0) 11/12/16 10:18 Urine Sodium 36 mEq/L 09/16/16 19:19 Urine Total Protein 16 mg/dL (5-11.8) H 09/16/16 19:19
--- NOTE | 2016-12-10 13:24 | Progress Note ---
Assessment and Plan Assessment and plan: Patient is 46-year-old woman with a history of hypertension, diabetes, asthma, hyperlipidemia, chronic kidney disease and anxiety , who was brought in by family because, she couldn't get her words out, her face was also twisted, she was admitted for acute CVA and accelerated hypertension, she had a hx of poor adherence with her medications, and uncontrolled htn. Patient's SBP on admission was noted be greater than 260. TPA was started but this was discontinued after 5 minutes because her blood pressure became uncontrolled. The TPA was not initiated again because the patient was outside the TPA window. Patient has had a prolonged hospital stay complicated with recurrent severe sepsis. Patient with most recent event also status post cardiac arrest on and received CPR. --Severe Sepsis with septic shock, recurrent. Patient with multiple episodes of sepsis. Initial episode due to presumed aspiration pneumonia and septic episode on 09/23 from candidemia then a third episode from peritonitis from gastric perforation from dislodged PEG +/-UTI. Patient was also noted to have had Candidemia with Blood cultures positive for Silvia albicans 09/23, 09/25 but negative on 09/30. Antibiotic discontinued on 12/05 per ID. patient is s/p R thoracentesis on 11/14, 240cc of serous fluid removed, cx of fluid was negative.also Stool negative for C. difficile --Surgical wound infection/gram-negative sepsis/candidemia/peritonitis. PEG has been removed and pus is drained from the PEG site and patient is Currently on tube feeding. Continue wound care to ostomy sites --Acute hypoxic respiratory failure, status post tracheostomy Patient placed back on AC mode ventilation. Patient failed T-piece trials. Tracheostomy tube leak. Pulmonary following --Acute massive CVA with mass effect; continue antiplatelets and statins -Neurology input appreciated CT shows continued evolution of left MCA infarct with slight mass effect and edema, and there is no hemorrhage -PRINCE showed hyperdynamic with ef of 75%, neither clot nor septal defect seen -MRA Brain shows near complete occlusion of M2 and M3 of the left MCA Repeat CT scan done on 09/11, shows stable findings carotid doppler negative -Echo shows preserved systolic function but does show some left ventricular diastolic dysfunction -continue asa and statin --Oliguric acute kidney injury. Etiology secondary to ATN on CKD. Baseline creatinine is approximately 1.7. --Paroxysmal atrial fibrillation with rapid ventricular rate, failed cardioversion Continue current medications, Not a candidate for anticoagulation secondary to anemia thrombocytopenia and massive CVA --Anemia; probably secondary to GI bleeding Patient received multiple units of PRBC in the past, hemoglobin has trended down to 6.8. Type and cross and transfuse 1 unit re-consult GI if needed Recheck Hemoccult stool -Toxic metabolic encephalopathy; supportive care --Diabetes mellitus type 2, Insulin/SSI --Severe protein caloric malnutrition, cont TPN --s/p Thrombocytopenia. Now resolved --DVT prophylaxis, SCDs, no pharmacological agent given anemia , thrombocytopenia, massive stroke --Full code status, very poor prognosis Dispo. Very poor prognosis has been explained by the hospitalist group and the lime filter operator but the family currently refusing hospice evaluation. The family would like to continue aggressive care. The high probability of a clinically significant, sudden or life threatening deterioration of the [respiratory, GI, immunological and cardiovascular] system( s) required my full and direct attention, intervention and personal management. The aggregate critical care time was [31] minutes. This time is in addition to time spent performing reported procedures but includes the following: [x] Data Review and interpretation [x] Patient assessment and monitoring of vital signs [x] Documentation [x] Medication orders and management History Interval history: No new issues overnight. Hospitalist Physical - Constitutional Vitals: Temp Pulse Resp BP Pulse Ox 97.5 F L 97 H 18 113/73 98 12/10/16 12:00 12/10/16 13:03 12/10/16 13:00 12/10/16 13:03 12/10/16 13:00 General appearance: Present: no acute distress - EENT Eyes: Present: PERRL, EOM intact ENT: hearing intact, clear oral mucosa, dentition normal - Neck Neck: Present: supple, normal ROM - Respiratory Respiratory effort: normal Respiratory: bilateral: diminished, rhonchi - Cardiovascular Rhythm: regular Heart Sounds: Present: S1 & S2. Absent: gallop, rub - Extremities Extremities: no ischemia, No edema, Full ROM - Abdominal General gastrointestinal: soft, non-tender, non-distended, normal bowel sounds - Integumentary Integumentary: Present: clear, warm, dry - Neurologic Neurologic: CNII-XII intact, moves all extremities Results - Labs CBC & Chem 7: 12/10/16 05:00 12/10/16 05:00 Labs: Laboratory Last Values WBC 15.7 K/mm3 (4.5-11.0) H 12/10/16 05:00 RBC 2.87 M/mm3 (3.65-5.03) L 12/10/16 05:00 Hgb 8.2 gm/dl (10.1-14.3) L 12/10/16 05:00 Hct 24.4 % (30.3-42.9) L 12/10/16 05:00 MCV 85 fl (79-97) 12/10/16 05:00 MCH 29 pg (28-32) 12/10/16 05:00 MCHC 34 % (30-34) 12/10/16 05:00 RDW 17.2 % (13.2-15.2) H 12/10/16 05:00 Plt Count 332 K/mm3 (140-440) 12/10/16 05:00 Lymph % (Auto) 18.2 % (13.4-35.0) 12/10/16 05:00 [place] % (Auto) 8.3 % (0.0-7.3) H 12/10/16 05:00 Eos % (Auto) 0.4 % (0.0-4.3) 12/10/16 05:00 Baso % (Auto) 0.3 % (0.0-1.8) 12/10/16 05:00 Lymph # 2.9 K/mm3 (1.2-5.4) 12/10/16 05:00 [place] # 1.3 K/mm3 (0.0-0.8) H 12/10/16 05:00 Eos # 0.1 K/mm3 (0.0-0.4) 12/10/16 05:00 Baso # 0.1 K/mm3 (0.0-0.1) 12/10/16 05:00 Add Manual Diff Complete 12/08/16 05:30 Total Counted 100 12/08/16 05:30 Seg Neutrophils % 72.8 % (40.0-70.0) H 12/10/16 05:00 Seg Neuts % (Manual) 76.0 % (40.0-70.0) H 12/08/16 05:30 Band Neutrophils % 6.0 % 12/08/16 05:30 Lymphocytes % (Manual) 9.0 % (13.4-35.0) L 12/08/16 05:30 Reactive Lymphs % (Man) 0 % 12/08/16 05:30 Monocytes % (Manual) 9.0 % (0.0-7.3) H 12/08/16 05:30 Eosinophils % (Manual) 0 % (0.0-4.3) 12/08/16 05:30 Basophils % (Manual) 0 % (0.0-1.8) 12/08/16 05:30 Metamyelocytes % 0 % 12/08/16 05:30 Myelocytes % 0 % 12/08/16 05:30 Promyelocytes % 0 % 12/08/16 05:30 Blast Cells % 0 % 12/08/16 05:30 Nucleated RBC % Not Reportable 12/08/16 05:30 Seg Neutrophils # 11.4 K/mm3 (1.8-7.7) H 12/10/16 05:00 Seg Neutrophils # Man 18.1 K/mm3 (1.8-7.7) H 12/08/16 05:30 Band Neutrophils # 1.4 K/mm3 12/08/16 05:30 Lymphocytes # (Manual) 2.1 K/mm3 (1.2-5.4) 12/08/16 05:30 Abs React Lymphs (Man) 0.0 K/mm3 12/08/16 05:30 Monocytes # (Manual) 2.1 K/mm3 (0.0-0.8) H 12/08/16 05:30 Eosinophils # (Manual) 0.0 K/mm3 (0.0-0.4) 12/08/16 05:30 Basophils # (Manual) 0.0 K/mm3 (0.0-0.1) 12/08/16 05:30 Metamyelocytes # 0.0 K/mm3 12/08/16 05:30 Myelocytes # 0.0 K/mm3 12/08/16 05:30 Promyelocytes # 0.0 K/mm3 12/08/16 05:30 Blast Cells # 0.0 K/mm3 12/08/16 05:30 Pathologist Review 09/13/16 04:00 WBC Morphology Not Reportable 12/08/16 05:30 Hypersegmented Neuts Not Reportable 12/08/16 05:30 Hyposegmented Neuts Not Reportable 12/08/16 05:30 Hypogranular Neuts Not Reportable 12/08/16 05:30 Smudge Cells Not Reportable 12/08/16 05:30 Toxic Granulation Not Reportable 12/08/16 05:30 Toxic Vacuolation Not Reportable 12/08/16 05:30 Dohle Bodies Not Reportable 12/08/16 05:30 Pelger-Huet Anomaly Not Reportable 12/08/16 05:30 Jasmina Rods Not Reportable 12/08/16 05:30 Platelet Estimate Appears normal 12/08/16 05:30 Clumped Platelets Not Reportable 12/08/16 05:30 Plt Clumps, EDTA Not Reportable 12/08/16 05:30 Large Platelets Not Reportable 12/08/16 05:30 Giant Platelets Not Reportable 12/08/16 05:30 Platelet Satelliting Not Reportable 12/08/16 05:30 Plt Morphology Comment Not Reportable 12/08/16 05:30 RBC Morphology Not Reportable 12/08/16 05:30 Dimorphic RBCs Not Reportable 12/08/16 05:30 Polychromasia Not Reportable 12/08/16 05:30 Hypochromasia Few 12/08/16 05:30 Poikilocytosis Not Reportable 12/08/16 05:30 Anisocytosis 1+ 12/08/16 05:30 Microcytosis Few 12/08/16 05:30 Macrocytosis Not Reportable 12/08/16 05:30 Spherocytes Not Reportable 12/08/16 05:30 Pappenheimer Bodies Not Reportable 12/08/16 05:30 Sickle Cells Not Reportable 12/08/16 05:30 Target Cells Not Reportable 12/08/16 05:30 Tear Drop Cells Not Reportable 12/08/16 05:30 Ovalocytes 1+ 12/08/16 05:30 Stomatocytes Rare 12/03/16 04:00 Helmet Cells Not Reportable 12/08/16 05:30 [place] Bodies Not Reportable 12/08/16 05:30 [place] Rings Not Reportable 12/08/16 05:30 [place] Cells Rare 12/08/16 05:30 Bite Cells Not Reportable 12/08/16 05:30 Crenated Cell Not Reportable 12/08/16 05:30 Elliptocytes Not Reportable 12/08/16 05:30 Acanthocytes (Spur) Not Reportable 12/08/16 05:30 Rouleaux Not Reportable 12/08/16 05:30 Hemoglobin C Crystals Not Reportable 12/08/16 05:30 Schistocytes Not Reportable 12/08/16 05:30 Malaria parasites Not Reportable 12/08/16 05:30 ESR > 140.0 mm/Hr (0-20) 09/08/16 11:48 Jun Bodies Not Reportable 12/08/16 05:30 Hem Pathologist Commnt No 12/08/16 05:30 PT 16.8 Sec. (12.2-14.9) H 11/17/16 03:20 INR 1.37 (0.87-1.13) H 11/17/16 03:20 APTT 33.0 Sec. (24.2-36.6) 10/09/16 03:45 Thrombin Time 16.8 Sec. (15.1-19.6) 09/03/16 00:10 Fibrinogen 750 mg/dl (211-480) H 09/08/16 11:48 Lupus Anticoagulant see below 09/12/16 09:59 LA PTT Baseline See scanned report 09/12/16 09:59 dRVVT Confirm Interp Positive (Negative) H 09/12/16 09:59 dRVVT Screen 50:50 See scanned report 09/12/16 09:59 dRVVT Mix Interpret See scanned report 09/12/16 09:59 Protein C Antigen 122 % (70-140) 09/08/16 15:35 Free Protein S 97 % normal (50-147) 09/08/16 15:35 Total Protein S 109 % (70-140) 09/08/16 15:35 Antithrombin III Ag 100 % (80-120) 09/08/16 15:35 Heparin Anti-Xa, Unfract Negative (Negative) 09/29/16 13:35 Factor V Activity 182 % (65-150) H 09/08/16 15:35 POC ABG pH 7.487 (7.35-7.45) H 11/25/16 14:12 ABG pH 7.450 pH Units (7.350-7.450) 12/05/16 Unknown POC ABG pCO2 39.0 (35-45) 11/25/16 14:12 ABG pCO2 29.6 mm Hg 12/05/16 Unknown POC ABG pO2 153 (80-105) H 11/25/16 14:12 ABG pO2 75.2 mm Hg (80.0-90.0) L 12/05/16 Unknown POC ABG HCO3 29.5 11/25/16 14:12 ABG HCO3 20.1 mmol/L (20.0-26.0) 12/05/16 Unknown POC ABG Total CO2 31 11/25/16 14:12 POC ABG O2 Sat 99 11/25/16 14:12 ABG O2 Saturation 96.8 % (95.0-99.0) 12/05/16 Unknown ABG O2 Content 9.9 (0.0-44) 12/05/16 Unknown POC ABG Base Excess 6 11/25/16 14:12 ABG Base Excess -3.4 mmol/L (-2.0-3.0) L 12/05/16 Unknown ABG Hemoglobin 7.4 gm/dl (12.0-16.0) L 12/05/16 Unknown ABG Carboxyhemoglobin 1.8 % (0.0-5.0) 12/05/16 Unknown ABG Methemoglobin 0.6 % (0.0-1.5) 12/05/16 Unknown Oxyhemoglobin 94.5 % (95.0-99.0) L 12/05/16 Unknown FiO2 30 % 12/05/16 Unknown Sodium 139 mmol/L (137-145) 12/10/16 05:00 Potassium 3.9 mmol/L (3.6-5.0) 12/10/16 05:00 Chloride 99.8 mmol/L (98-107) 12/10/16 05:00 Carbon Dioxide 25 mmol/L (22-30) 12/10/16 05:00 Anion Gap 18 mmol/L 12/10/16 05:00 BUN 64 mg/dL (7-17) H 12/10/16 05:00 Creatinine 1.4 mg/dL (0.7-1.2) H 12/10/16 05:00 Estimated GFR 49 ml/min 12/10/16 05:00 BUN/Creatinine Ratio 46 % 12/10/16 05:00 Glucose 134 mg/dL (65-100) H 12/10/16 05:00 POC Glucose 144 (70-105) H 12/10/16 11:58 Osmolality 351 Mosm/kg 09/16/16 11:47 Lactic Acid 4.50 mmol/L (0.7-2.0) H* 09/28/16 07:25 Calcium 8.9 mg/dL (8.4-10.2) 12/10/16 05:00 Phosphorus 2.70 mg/dL (2.5-4.5) 12/10/16 05:00 Magnesium 1.70 mg/dL (1.7-2.3) 12/08/16 05:30 Total Bilirubin 0.20 mg/dL (0.1-1.2) 12/04/16 04:00 Direct Bilirubin 0.3 mg/dL (0-0.2) H 10/10/16 05:00 Indirect Bilirubin 0.1 mg/dL 10/10/16 05:00 AST 29 units/L (5-40) 12/04/16 04:00 ALT 43 units/L (7-56) 12/04/16 04:00 Alkaline Phosphatase 155 units/L (35-129) H 12/04/16 04:00 Ammonia 27.0 umol/L (25-60) 09/07/16 08:37 Lactate Dehydrogenase 196 units/L (91-180) H 11/11/16 06:59 Total Creatine Kinase 121 units/L (30-135) 09/29/16 20:12 CK-MB (CK-2) < 1.0 ng/mL (0.0-4.0) 09/29/16 20:12 CK-MB (CK-2) Rel Index 0.8 (0-4) 09/29/16 20:12 Troponin T 0.204 ng/mL (0.00-0.029) H* 09/29/16 20:12 C-Reactive Protein 19.30 mg/dL (0.00-1.30) H 12/05/16 05:00 Total Protein 5.5 g/dL (6.3-8.2) L 12/04/16 04:00 Albumin 1.5 g/dL (3.9-5) L 12/04/16 04:00 Albumin/Globulin Ratio 0.4 % 12/04/16 04:00 Prealbumin 0.180 g/L (0.200-0.400) L 11/06/16 06:25 Triglycerides 137 mg/dL (2-149) 09/29/16 20:12 Cholesterol 31 mg/dL (50-199) L 09/29/16 20:12 LDL Cholesterol Direct 4 mg/dL (50-130) L 09/29/16 20:12 HDL Cholesterol 3 mg/dL (40-59) L 09/29/16 20:12 Cholesterol/HDL Ratio 10.33 % 09/29/16 20:12 Angiotensin Convert Enz See scanned report 09/08/16 11:48 Renin 0.99 ng/mL/h (0.25-5.82) 10/07/16 10:56 Aldosterone <1 ng/dL () 10/07/16 10:56 Aldosterone/Renin Dir see below 10/07/16 10:56 Serotonin Release Assay See scanned report 09/29/16 13:35 TSH 1.010 mlU/mL (0.270-4.200) 09/07/16 08:37 HCG, Qual Negative (Negative) 09/03/16 00:10 Urine Color Yellow (Yellow) 11/05/16 13:09 Urine Turbidity Clear (Clear) 11/05/16 13:09 Urine pH 9.0 (5.0-7.0) H 11/05/16 13:09 Ur Specific [employer] 1.011 (1.003-1.030) 11/05/16 13:09 Urine Protein 100 mg/dl mg/dL (Negative) 11/05/16 13:09 Urine Glucose (UA) Neg mg/dL (Negative) 11/05/16 13:09 Urine Ketones Neg mg/dL (Negative) 11/05/16 13:09 Urine Blood Neg (Negative) 11/05/16 13:09 Urine Nitrite Neg (Negative) 11/05/16 13:09 Urine Bilirubin Neg (Negative) 11/05/16 13:09 Urine Urobilinogen < 2.0 mg/dL (<2.0) 11/05/16 13:09 Ur Leukocyte Esterase Neg (Negative) 11/05/16 13:09 Urine WBC (Auto) 4.0 /HPF (0.0-6.0) 11/05/16 13:09 Urine RBC (Auto) 1.0 /HPF (0.0-6.0) 11/05/16 13:09 U Epithel Cells (Auto) 1.0 /HPF (0-13.0) 10/07/16 18:30 Urine Bacteria (Auto) 4+ /HPF (Negative) 11/05/16 13:09 Urine WBC Clumps 2+ /HPF 09/07/16 02:47 Hyaline Casts 4 /LPF 09/07/16 02:47 Urine Mucus Few /HPF 10/07/16 18:30 Urine Yeast (Budding) 3+ /HPF 10/07/16 18:30 Urine Eosinophils None seen (None Seen) 09/07/16 16:00 Urine Total Volume 950 11/12/16 10:18 Urine Creatinine 19.7 mg/dL (0.1-20.0) 11/12/16 10:18 Height (in) 65.0 inches 11/12/16 10:18 Weight (lb) 181.0 lbs 11/12/16 10:18 Creatinine Clearance 5 11/12/16 10:18 Urine Sodium 36 mEq/L 09/16/16 19:19 Urine Total Protein 16 mg/dL (5-11.8) H 09/16/16 19:19 Fluid Total Protein < 3.0 (15.0-45.0) L 11/10/16 14:20 Fluid LDH 123 11/10/16 14:20 Vancomycin Trough 2.3 ug/mL (5.0-20.0) L 09/21/16 13:00 Random Vancomycin 16.5 ug/mL (0-40.0) 11/28/16 09:45 Urine Opiates Screen Presumptive negative 09/03/16 15:11 Urine Methadone Screen Presumptive positive 09/03/16 15:11 Ur Barbiturates Screen Presumptive positive 09/03/16 15:11 Ur Phencyclidine Scrn Presumptive negative 09/03/16 15:11 Ur Amphetamines Screen Presumptive negative 09/03/16 15:11 U Benzodiazepines Scrn Presumptive negative 09/03/16 15:11 Urine Cocaine Screen Presumptive negative 09/03/16 15:11 U Marijuana (THC) Screen Presumptive positive 09/03/16 15:11 Drugs of Abuse Note Disclamer 09/03/16 15:11 Rheumatoid Factor 24 IU/ml (0-13) H 09/08/16 11:48 SAHIL Screen Negative (Negative) 09/07/16 09:20 Proteinase 3 (PR3) Ab <1.0 AI (<1.0) 09/07/16 09:20 Myeloperoxidase Ab <1.0 AI (<1.0) 09/07/16 09:20 Sjogren's Antibody <1.0 AI (<1.0) 09/08/16 15:35 Scl-70 Scleroderma Ab <1.0 AI (<1.0) 09/08/16 15:35 Centromere B Antibody <1.0 AI (<1.0) 09/08/16 12:02 Heparin-induced Plt Ab Negative (Negative) 09/29/16 13:35 UF Heparin High Dose 11 % Release 09/29/16 13:35 SUDHIR UFH Low Dose 0.1 6 % Release 09/29/16 13:35 SUDHIR UFH Low Dose 0.5 8 % Release 09/29/16 13:35 Cardiolipid IgG Ab <14 GPL (<=14) 09/12/16 09:59 Cardiolipid IgA Ab <11 APL (<=11) 09/12/16 09:59 Cardiolipid IgM Ab <12 MPL (<=12) 09/12/16 09:59 Complement C3 148 mg/dL (90-180) 09/07/16 09:20 Complement C4 58 mg/dL (16-47) H 09/07/16 09:20 RPR Nonreactive (Nonreactive) 09/08/16 11:48 Hepatitis A IgM Ab Non-reactive (NonReactive) 09/24/16 14:40 Hep Bs Antigen Non-reactive (Negative) 09/24/16 14:40 Hep B Core IgM Ab Non-reactive (NonReactive) 09/24/16 14:40 Hepatitis C Antibody Non-reactive (NonReactive) 09/24/16 14:40 HIV 1&2 Antibody Rapid Non react (Non React) 09/08/16 11:48 HIV P24 Antigen Non react (Non React) 09/08/16 11:48 Miscellaneous Test Flexitest 1 H 11/05/16 13:25 Blood Type A POSITIVE 12/07/16 09:45 Antibody Screen Negative 12/07/16 09:45 DELORIS Antibody Screen Negative 11/24/16 11:20 Crossmatch See Detail 12/07/16 09:45
[2016-12-10] MEDS: DURAGESIC TD SCH (15:30)
[2016-12-10] MEDS: HEPARIN IV PRN (15:35)
--- NOTE | 2016-12-10 16:35 | Progress Note ---
Assessment and Plan Acute Hypoxemic Respiratory Failure (now with exacerbation and back on MVS) Hypertension (unable to receive p.o. meds) s/p tracheostomy Acute encephalopathy s/p CVA Oropharyngeal dysphagia Enterococcal bacteremia sepsis syndrome Anemia Obesity JUANITA now on hemodialysis Enteric Fistula - leucocytosis stable and still without high grade fevers or clinical decompensation; continue to follow clinically and off AB's for now - prn CRP & lactate levels if clinically indicated - keep on with daily PSV trials and / or T-piece as tolerated (repeat trial each shift if failed earlier shift) - continue TPN administration (continue TPN; NPO except for meds) - continue scopolamine for secretion control - continue to wean FiO2 for sats > 94% - continue bronchodilators and pulmonary toilet - VAP bundle addressed - continue prn IV metorolol - continue metoprolol and amlodipine (rate control better) - continue HD/UF per nephrology (Teu/Thurs/Sat) - continue to follow electrolytes and correct as necessary - continue GI & VTE prophylaxis - Continue flu & pneumovax per protocol ... case discussed during rounds and care plan formulated .....she remains critically ill on life sustaining interventions including MVS and at risk for further deterioration including ....30' CCT today without overlap ...[facility] prognosis guarded Subjective Date of service: 12/10/16 Principal diagnosis: Acute resp failure on MVS; S/P Acute CVA; Acute Encephalopathy; JUANITA Interval history: Patient is seen today for: Acute resp failure on MVS; S/P Acute CVA; Acute Encephalopathy; JUANITA Seen and examined at bedside; 24hour events reviewed; nursing and respiratory care staff consulted; no adverse overnight events reported to me; weaning held during dialysis; AMS is persistent; no emesis; no gross bleeding; no high grade fevers; no new issues otherwise Objective Vital Signs - 12hr 12/10/16 12/10/16 12/10/16 05:00 05:25 06:01 Temperature Pulse Rate 102 H 102 H 88 Pulse Rate [ Anterior Bilateral Throughout] Pulse Rate [ From Monitor] Respiratory 18 27 H Rate Respiratory Rate [Anterior Bilateral Throughout] Blood Pressure 161/99 161/99 161/99 O2 Sat by Pulse 100 100 Oximetry O2 Sat by Pulse Oximetry [ Assessment] O2 Sat by Pulse Oximetry [ Bilateral Throughout] 12/10/16 12/10/16 12/10/16 07:00 07:53 08:00 Temperature 97.5 F L Pulse Rate 87 84 Pulse Rate [ Anterior Bilateral Throughout] Pulse Rate [ 85 From Monitor] Respiratory 17 14 Rate Respiratory Rate [Anterior Bilateral Throughout] Blood Pressure 139/80 120/71 O2 Sat by Pulse 100 100 100 Oximetry O2 Sat by Pulse 100 Oximetry [ Assessment] O2 Sat by Pulse Oximetry [ Bilateral Throughout] 12/10/16 12/10/16 12/10/16 08:44 08:55 09:00 Temperature Pulse Rate 89 90 Pulse Rate [ 89 88 Anterior Bilateral Throughout] Pulse Rate [ From Monitor] Respiratory 30 H 22 Rate Respiratory 30 H 19 Rate [Anterior Bilateral Throughout] Blood Pressure 120/71 158/87 O2 Sat by Pulse 100 100 Oximetry O2 Sat by Pulse Oximetry [ Assessment] O2 Sat by Pulse Oximetry [ Bilateral Throughout] 12/10/16 12/10/16 12/10/16 09:56 10:00 10:35 Temperature Pulse Rate 88 90 89 Pulse Rate [ Anterior Bilateral Throughout] Pulse Rate [ From Monitor] Respiratory 16 34 H Rate Respiratory Rate [Anterior Bilateral Throughout] Blood Pressure 158/87 149/83 149/83 O2 Sat by Pulse 99 99 Oximetry O2 Sat by Pulse Oximetry [ Assessment] O2 Sat by Pulse Oximetry [ Bilateral Throughout] 12/10/16 12/10/16 12/10/16 11:00 11:43 11:45 Temperature 97.5 F L Pulse Rate 89 90 99 H Pulse Rate [ Anterior Bilateral Throughout] Pulse Rate [ From Monitor] Respiratory 32 H 14 Rate Respiratory Rate [Anterior Bilateral Throughout] Blood Pressure 135/79 135/79 135/79 O2 Sat by Pulse 98 99 Oximetry O2 Sat by Pulse Oximetry [ Assessment] O2 Sat by Pulse 98 Oximetry [ Bilateral Throughout] 12/10/16 12/10/16 12/10/16 11:50 12:00 12:15 Temperature 97.5 F L Pulse Rate 92 H 91 H 98 H Pulse Rate [ Anterior Bilateral Throughout] Pulse Rate [ From Monitor] Respiratory 20 Rate Respiratory Rate [Anterior Bilateral Throughout] Blood Pressure 135/79 127/75 128/80 O2 Sat by Pulse 97 Oximetry O2 Sat by Pulse Oximetry [ Assessment] O2 Sat by Pulse Oximetry [ Bilateral Throughout] 12/10/16 12/10/16 12/10/16 12:32 12:45 13:00 Temperature Pulse Rate 95 H 96 H 97 H Pulse Rate [ Anterior Bilateral Throughout] Pulse Rate [ From Monitor] Respiratory 18 Rate Respiratory Rate [Anterior Bilateral Throughout] Blood Pressure 117/80 115/74 113/73 O2 Sat by Pulse 98 Oximetry O2 Sat by Pulse Oximetry [ Assessment] O2 Sat by Pulse Oximetry [ Bilateral Throughout] 12/10/16 12/10/16 12/10/16 13:03 13:15 13:30 Temperature Pulse Rate 97 H 96 H 97 H Pulse Rate [ Anterior Bilateral Throughout] Pulse Rate [ From Monitor] Respiratory Rate Respiratory Rate [Anterior Bilateral Throughout] Blood Pressure 113/73 118/70 107/74 O2 Sat by Pulse Oximetry O2 Sat by Pulse Oximetry [ Assessment] O2 Sat by Pulse Oximetry [ Bilateral Throughout] 12/10/16 12/10/16 12/10/16 13:46 14:01 14:19 Temperature Pulse Rate 98 H 97 H 98 H Pulse Rate [ Anterior Bilateral Throughout] Pulse Rate [ From Monitor] Respiratory Rate Respiratory Rate [Anterior Bilateral Throughout] Blood Pressure 110/71 103/75 108/74 O2 Sat by Pulse Oximetry O2 Sat by Pulse Oximetry [ Assessment] O2 Sat by Pulse Oximetry [ Bilateral Throughout] 12/10/16 12/10/16 12/10/16 14:34 14:45 15:03 Temperature Pulse Rate 99 H 101 H 102 H Pulse Rate [ Anterior Bilateral Throughout] Pulse Rate [ From Monitor] Respiratory Rate Respiratory Rate [Anterior Bilateral Throughout] Blood Pressure 110/71 114/69 95/70 O2 Sat by Pulse Oximetry O2 Sat by Pulse Oximetry [ Assessment] O2 Sat by Pulse Oximetry [ Bilateral Throughout] 12/10/16 12/10/16 12/10/16 15:16 15:20 15:32 Temperature 97.5 F L Pulse Rate 103 H 101 H 99 H Pulse Rate [ Anterior Bilateral Throughout] Pulse Rate [ From Monitor] Respiratory 20 Rate Respiratory Rate [Anterior Bilateral Throughout] Blood Pressure 105/77 105/77 112/73 O2 Sat by Pulse Oximetry O2 Sat by Pulse Oximetry [ Assessment] O2 Sat by Pulse 96 Oximetry [ Bilateral Throughout] 12/10/16 16:00 Temperature Pulse Rate Pulse Rate [ Anterior Bilateral Throughout] Pulse Rate [ From Monitor] Respiratory Rate Respiratory Rate [Anterior Bilateral Throughout] Blood Pressure O2 Sat by Pulse Oximetry O2 Sat by Pulse 100 Oximetry [ Assessment] O2 Sat by Pulse Oximetry [ Bilateral Throughout] Constitutional: appears uncomfortable, other (not tracking) Eyes: non-icteric, other (tracheostomy tube in midline of neck) ENT: oropharynx moist, oropharyngeal exudate pre Neck: supple, no lymphadenopathy, no JVD, other (no thyromegaly) Effort: mildly labored Ascultation: Bilateral: rhonchi (and referred upper airway sounds) Percussion: Bilateral: not dull Cardiovascular: regular rate and rhythm, other (no rubs / murmurs) Gastrointestinal: hypoactive bowel sounds, soft, non-tender, non-distended, other (RLQ & LUQ stomas with colostomy bags) Integumentary: other (no rash; no cellulitis; poor turgor) Extremities: no cyanosis, pulses normal, no ischemia or petechiae, edema (1+ bilaterally) Neurologic: pupils equal and round, unable to assess, other (encephalopathic) Psychiatric: other (unable to assess) CBC and BMP: 12/10/16 05:00 12/10/16 05:00 ABG, PT/INR, D-dimer: ABG POC ABG pH 7.487 (7.35-7.45) H 11/25/16 14:12 ABG pH 7.450 pH Units (7.350-7.450) 12/05/16 Unknown POC ABG pCO2 39.0 (35-45) 11/25/16 14:12 ABG pCO2 29.6 mm Hg 12/05/16 Unknown POC ABG pO2 153 (80-105) H 11/25/16 14:12 ABG pO2 75.2 mm Hg (80.0-90.0) L 12/05/16 Unknown POC ABG HCO3 29.5 11/25/16 14:12 POC ABG Total CO2 31 11/25/16 14:12 POC ABG O2 Sat 99 11/25/16 14:12 ABG O2 Saturation 96.8 % (95.0-99.0) 12/05/16 Unknown PT/INR, D-dimer PT 16.8 Sec. (12.2-14.9) H 11/17/16 03:20 INR 1.37 (0.87-1.13) H 11/17/16 03:20 Abnormal lab findings: Abnormal Labs 07/15/17 07/15/17 07/15/17 12:12 15:07 16:20 WBC RBC Hgb Hct MCV MCH MCHC RDW Plt Count Lymph % (Auto) [place] % (Auto) Lymph # [place] # Baso # Seg Neutrophils % Seg Neuts % (Manual) Lymphocytes % (Manual) Monocytes % (Manual) Eosinophils % (Manual) Basophils % (Manual) Nucleated RBC % Seg Neutrophils # Seg Neutrophils # Man Lymphocytes # (Manual) Monocytes # (Manual) Eosinophils # (Manual) PT INR Fibrinogen dRVVT Confirm Interp Factor V Activity POC ABG pH 7.452 H POC ABG pCO2 POC ABG pO2 ABG pO2 ABG HCO3 ABG Base Excess ABG Hemoglobin Oxyhemoglobin Sodium Potassium Chloride Carbon Dioxide BUN Creatinine Glucose POC Glucose 178 H Lactic Acid Calcium Phosphorus 2.20 L Magnesium 1.60 L Direct Bilirubin AST ALT Alkaline Phosphatase Lactate Dehydrogenase Troponin T C-Reactive Protein Total Protein Albumin Prealbumin Triglycerides Cholesterol LDL Cholesterol Direct HDL Cholesterol Urine pH Urine WBC (Auto) Urine Creatinine Urine Total Protein Fluid Total Protein Vancomycin Trough Rheumatoid Factor Complement C4 Miscellaneous Test Crossmatch 09/03/16 09/03/16 09/03/16 17:57 17:58 23:50 WBC RBC Hgb Hct MCV MCH MCHC RDW Plt Count Lymph % (Auto) [place] % (Auto) Lymph # [place] # Baso # Seg Neutrophils % Seg Neuts % (Manual) Lymphocytes % (Manual) Monocytes % (Manual) Eosinophils % (Manual) Basophils % (Manual) Nucleated RBC % Seg Neutrophils # Seg Neutrophils # Man Lymphocytes # (Manual) Monocytes # (Manual) Eosinophils # (Manual) PT INR Fibrinogen dRVVT Confirm Interp Factor V Activity POC ABG pH POC ABG pCO2 POC ABG pO2 ABG pO2 ABG HCO3 ABG Base Excess ABG Hemoglobin Oxyhemoglobin Sodium Potassium Chloride Carbon Dioxide BUN Creatinine Glucose POC Glucose 162 H 145 H Lactic Acid Calcium Phosphorus 2.30 L Magnesium Direct Bilirubin AST ALT Alkaline Phosphatase Lactate Dehydrogenase Troponin T C-Reactive Protein Total Protein Albumin Prealbumin Triglycerides Cholesterol LDL Cholesterol Direct HDL Cholesterol Urine pH Urine WBC (Auto) Urine Creatinine Urine Total Protein Fluid Total Protein Vancomycin Trough Rheumatoid Factor Complement C4 Miscellaneous Test Crossmatch 09/04/16 09/04/16 09/04/16 03:31 03:31 05:42 WBC RBC Hgb 9.7 L D Hct MCV 72 L MCH 23 L MCHC RDW 17.5 H Plt Count Lymph % (Auto) 11.1 L [place] % (Auto) Lymph # [place] # Baso # Seg Neutrophils % 84.3 H Seg Neuts % (Manual) Lymphocytes % (Manual) Monocytes % (Manual) Eosinophils % (Manual) Basophils % (Manual) Nucleated RBC % Seg Neutrophils # 8.9 H Seg Neutrophils # Man Lymphocytes # (Manual) Monocytes # (Manual) Eosinophils # (Manual) PT INR Fibrinogen dRVVT Confirm Interp Factor V Activity POC ABG pH POC ABG pCO2 POC ABG pO2 ABG pO2 ABG HCO3 ABG Base Excess ABG Hemoglobin Oxyhemoglobin Sodium 135 L Potassium 2.9 L* Chloride 97.2 L Carbon Dioxide 19 L BUN Creatinine 1.7 H Glucose 170 H POC Glucose 152 H Lactic Acid Calcium Phosphorus Magnesium Direct Bilirubin AST ALT Alkaline Phosphatase Lactate Dehydrogenase Troponin T C-Reactive Protein Total Protein Albumin Prealbumin Triglycerides 160 H Cholesterol LDL Cholesterol Direct HDL Cholesterol 31 L Urine pH Urine WBC (Auto) Urine Creatinine Urine Total Protein Fluid Total Protein Vancomycin Trough Rheumatoid Factor Complement C4 Miscellaneous Test Crossmatch 09/04/16 09/04/16 09/04/16 11:34 17:46 23:29 WBC RBC Hgb Hct MCV MCH MCHC RDW Plt Count Lymph % (Auto) [place] % (Auto) Lymph # [place] # Baso # Seg Neutrophils % Seg Neuts % (Manual) Lymphocytes % (Manual) Monocytes % (Manual) Eosinophils % (Manual) Basophils % (Manual) Nucleated RBC % Seg Neutrophils # Seg Neutrophils # Man Lymphocytes # (Manual) Monocytes # (Manual) Eosinophils # (Manual) PT INR Fibrinogen dRVVT Confirm Interp Factor V Activity POC ABG pH POC ABG pCO2 POC ABG pO2 ABG pO2 ABG HCO3 ABG Base Excess ABG Hemoglobin Oxyhemoglobin Sodium Potassium Chloride Carbon Dioxide BUN Creatinine Glucose POC Glucose 165 H 210 H 139 H Lactic Acid Calcium Phosphorus Magnesium Direct Bilirubin AST ALT Alkaline Phosphatase Lactate Dehydrogenase Troponin T C-Reactive Protein Total Protein Albumin Prealbumin Triglycerides Cholesterol LDL Cholesterol Direct HDL Cholesterol Urine pH Urine WBC (Auto) Urine Creatinine Urine Total Protein Fluid Total Protein Vancomycin Trough Rheumatoid Factor Complement C4 Miscellaneous Test Crossmatch 09/05/16 09/05/16 09/05/16 04:05 04:05 05:38 WBC RBC Hgb Hct MCV 76 L D MCH 23 L MCHC RDW 17.8 H Plt Count Lymph % (Auto) [place] % (Auto) Lymph # [place] # Baso # Seg Neutrophils % Seg Neuts % (Manual) Lymphocytes % (Manual) Monocytes % (Manual) Eosinophils % (Manual) Basophils % (Manual) Nucleated RBC % Seg Neutrophils # Seg Neutrophils # Man Lymphocytes # (Manual) Monocytes # (Manual) Eosinophils # (Manual) PT INR Fibrinogen dRVVT Confirm Interp Factor V Activity POC ABG pH POC ABG pCO2 POC ABG pO2 ABG pO2 ABG HCO3 ABG Base Excess ABG Hemoglobin Oxyhemoglobin Sodium 134 L Potassium Chloride Carbon Dioxide 18 L BUN Creatinine 1.8 H Glucose 192 H POC Glucose 175 H Lactic Acid Calcium Phosphorus Magnesium Direct Bilirubin AST ALT Alkaline Phosphatase Lactate Dehydrogenase Troponin T C-Reactive Protein Total Protein Albumin Prealbumin Triglycerides Cholesterol LDL Cholesterol Direct HDL Cholesterol Urine pH Urine WBC (Auto) Urine Creatinine Urine Total Protein Fluid Total Protein Vancomycin Trough Rheumatoid Factor Complement C4 Miscellaneous Test Crossmatch 09/05/16 09/05/16 09/05/16 11:38 17:48 23:22 WBC RBC Hgb Hct MCV MCH MCHC RDW Plt Count Lymph % (Auto) [place] % (Auto) Lymph # [place] # Baso # Seg Neutrophils % Seg Neuts % (Manual) Lymphocytes % (Manual) Monocytes % (Manual) Eosinophils % (Manual) Basophils % (Manual) Nucleated RBC % Seg Neutrophils # Seg Neutrophils # Man Lymphocytes # (Manual) Monocytes # (Manual) Eosinophils # (Manual) PT INR Fibrinogen dRVVT Confirm Interp Factor V Activity POC ABG pH POC ABG pCO2 POC ABG pO2 ABG pO2 ABG HCO3 ABG Base Excess ABG Hemoglobin Oxyhemoglobin Sodium Potassium Chloride Carbon Dioxide BUN Creatinine Glucose POC Glucose 164 H 186 H 195 H Lactic Acid Calcium Phosphorus Magnesium Direct Bilirubin AST ALT Alkaline Phosphatase Lactate Dehydrogenase Troponin T C-Reactive Protein Total Protein Albumin Prealbumin Triglycerides Cholesterol LDL Cholesterol Direct HDL Cholesterol Urine pH Urine WBC (Auto) Urine Creatinine Urine Total Protein Fluid Total Protein Vancomycin Trough Rheumatoid Factor Complement C4 Miscellaneous Test Crossmatch 09/06/16 09/06/16 09/06/16 04:12 05:59 07:32 WBC RBC Hgb Hct MCV MCH MCHC RDW Plt Count Lymph % (Auto) [place] % (Auto) Lymph # [place] # Baso # Seg Neutrophils % Seg Neuts % (Manual) Lymphocytes % (Manual) Monocytes % (Manual) Eosinophils % (Manual) Basophils % (Manual) Nucleated RBC % Seg Neutrophils # Seg Neutrophils # Man Lymphocytes # (Manual) Monocytes # (Manual) Eosinophils # (Manual) PT INR Fibrinogen dRVVT Confirm Interp Factor V Activity POC ABG pH 7.514 H POC ABG pCO2 29.1 L POC ABG pO2 72 L ABG pO2 ABG HCO3 ABG Base Excess ABG Hemoglobin Oxyhemoglobin Sodium 133 L Potassium 3.4 L Chloride 94.9 L Carbon Dioxide 19 L BUN 30 H Creatinine 2.1 H Glucose 139 H POC Glucose 146 H Lactic Acid Calcium Phosphorus Magnesium Direct Bilirubin AST ALT Alkaline Phosphatase Lactate Dehydrogenase Troponin T C-Reactive Protein Total Protein Albumin Prealbumin Triglycerides Cholesterol LDL Cholesterol Direct HDL Cholesterol Urine pH Urine WBC (Auto) Urine Creatinine Urine Total Protein Fluid Total Protein Vancomycin Trough Rheumatoid Factor Complement C4 Miscellaneous Test Crossmatch 09/06/16 09/06/16 09/06/16 11:57 17:58 19:02 WBC RBC Hgb Hct MCV MCH MCHC RDW Plt Count Lymph % (Auto) [place] % (Auto) Lymph # [place] # Baso # Seg Neutrophils % Seg Neuts % (Manual) Lymphocytes % (Manual) Monocytes % (Manual) Eosinophils % (Manual) Basophils % (Manual) Nucleated RBC % Seg Neutrophils # Seg Neutrophils # Man Lymphocytes # (Manual) Monocytes # (Manual) Eosinophils # (Manual) PT INR Fibrinogen dRVVT Confirm Interp Factor V Activity POC ABG pH 7.465 H POC ABG pCO2 32.0 L POC ABG pO2 ABG pO2 ABG HCO3 ABG Base Excess ABG Hemoglobin Oxyhemoglobin Sodium Potassium Chloride Carbon Dioxide BUN Creatinine Glucose POC Glucose 165 H 160 H Lactic Acid Calcium Phosphorus Magnesium Direct Bilirubin AST ALT Alkaline Phosphatase Lactate Dehydrogenase Troponin T C-Reactive Protein Total Protein Albumin Prealbumin Triglycerides Cholesterol LDL Cholesterol Direct HDL Cholesterol Urine pH Urine WBC (Auto) Urine Creatinine Urine Total Protein Fluid Total Protein Vancomycin Trough Rheumatoid Factor Complement C4 Miscellaneous Test Crossmatch 09/06/16 09/07/16 09/07/16 23:45 02:47 02:47 WBC RBC Hgb Hct MCV MCH MCHC RDW Plt Count Lymph % (Auto) [place] % (Auto) Lymph # [place] # Baso # Seg Neutrophils % Seg Neuts % (Manual) Lymphocytes % (Manual) Monocytes % (Manual) Eosinophils % (Manual) Basophils % (Manual) Nucleated RBC % Seg Neutrophils # Seg Neutrophils # Man Lymphocytes # (Manual) Monocytes # (Manual) Eosinophils # (Manual) PT INR Fibrinogen dRVVT Confirm Interp Factor V Activity POC ABG pH POC ABG pCO2 POC ABG pO2 ABG pO2 ABG HCO3 ABG Base Excess ABG Hemoglobin Oxyhemoglobin Sodium Potassium Chloride Carbon Dioxide BUN Creatinine Glucose POC Glucose 204 H Lactic Acid Calcium Phosphorus Magnesium Direct Bilirubin AST ALT Alkaline Phosphatase Lactate Dehydrogenase Troponin T C-Reactive Protein Total Protein Albumin Prealbumin Triglycerides Cholesterol LDL Cholesterol Direct HDL Cholesterol Urine pH Urine WBC (Auto) 68.0 H Urine Creatinine 106.1 H Urine Total Protein Fluid Total Protein Vancomycin Trough Rheumatoid Factor Complement C4 Miscellaneous Test Crossmatch 09/07/16 09/07/16 09/07/16 04:50 06:19 06:39 WBC RBC Hgb Hct MCV MCH MCHC RDW Plt Count Lymph % (Auto) [place] % (Auto) Lymph # [place] # Baso # Seg Neutrophils % Seg Neuts % (Manual) Lymphocytes % (Manual) Monocytes % (Manual) Eosinophils % (Manual) Basophils % (Manual) Nucleated RBC % Seg Neutrophils # Seg Neutrophils # Man Lymphocytes # (Manual) Monocytes # (Manual) Eosinophils # (Manual) PT INR Fibrinogen dRVVT Confirm Interp Factor V Activity POC ABG pH 7.457 H POC ABG pCO2 32.1 L POC ABG pO2 76 L ABG pO2 ABG HCO3 ABG Base Excess ABG Hemoglobin Oxyhemoglobin Sodium 132 L Potassium Chloride 94.7 L Carbon Dioxide BUN 53 H Creatinine 2.9 H Glucose 151 H POC Glucose 149 H Lactic Acid Calcium Phosphorus Magnesium Direct Bilirubin AST ALT Alkaline Phosphatase Lactate Dehydrogenase Troponin T C-Reactive Protein Total Protein Albumin Prealbumin Triglycerides Cholesterol LDL Cholesterol Direct HDL Cholesterol Urine pH Urine WBC (Auto) Urine Creatinine Urine Total Protein Fluid Total Protein Vancomycin Trough Rheumatoid Factor Complement C4 Miscellaneous Test Crossmatch 09/07/16 09/07/16 09/07/16 09:20 11:43 11:43 WBC 19.4 H RBC Hgb 8.3 L Hct 26.4 L D MCV 72 L D MCH 22 L MCHC RDW 17.9 H Plt Count Lymph % (Auto) 8.5 L [place] % (Auto) Lymph # [place] # 1.0 H Baso # Seg Neutrophils % 85.8 H Seg Neuts % (Manual) Lymphocytes % (Manual) Monocytes % (Manual) Eosinophils % (Manual) Basophils % (Manual) Nucleated RBC % Seg Neutrophils # 16.6 H Seg Neutrophils # Man Lymphocytes # (Manual) Monocytes # (Manual) Eosinophils # (Manual) PT INR Fibrinogen dRVVT Confirm Interp Factor V Activity POC ABG pH POC ABG pCO2 POC ABG pO2 ABG pO2 ABG HCO3 ABG Base Excess ABG Hemoglobin Oxyhemoglobin Sodium 134 L Potassium Chloride 97.2 L Carbon Dioxide 20 L BUN 58 H Creatinine 2.9 H Glucose 147 H POC Glucose Lactic Acid Calcium Phosphorus 2.40 L Magnesium 2.40 H Direct Bilirubin AST ALT Alkaline Phosphatase Lactate Dehydrogenase Troponin T C-Reactive Protein Total Protein 5.8 L Albumin 2.2 L Prealbumin Triglycerides Cholesterol LDL Cholesterol Direct HDL Cholesterol Urine pH Urine WBC (Auto) Urine Creatinine Urine Total Protein Fluid Total Protein Vancomycin Trough Rheumatoid Factor Complement C4 58 H Miscellaneous Test Crossmatch 09/07/16 09/07/16 09/07/16 11:50 16:00 17:31 WBC RBC Hgb Hct MCV MCH MCHC RDW Plt Count Lymph % (Auto) [place] % (Auto) Lymph # [place] # Baso # Seg Neutrophils % Seg Neuts % (Manual) Lymphocytes % (Manual) Monocytes % (Manual) Eosinophils % (Manual) Basophils % (Manual) Nucleated RBC % Seg Neutrophils # Seg Neutrophils # Man Lymphocytes # (Manual) Monocytes # (Manual) Eosinophils # (Manual) PT INR Fibrinogen dRVVT Confirm Interp Factor V Activity POC ABG pH POC ABG pCO2 POC ABG pO2 158 H ABG pO2 ABG HCO3 ABG Base Excess ABG Hemoglobin Oxyhemoglobin Sodium Potassium Chloride Carbon Dioxide BUN Creatinine Glucose POC Glucose 175 H Lactic Acid Calcium Phosphorus Magnesium Direct Bilirubin AST ALT Alkaline Phosphatase Lactate Dehydrogenase Troponin T C-Reactive Protein Total Protein Albumin Prealbumin Triglycerides Cholesterol LDL Cholesterol Direct HDL Cholesterol Urine pH Urine WBC (Auto) Urine Creatinine 66.3 H Urine Total Protein Fluid Total Protein Vancomycin Trough Rheumatoid Factor Complement C4 Miscellaneous Test Crossmatch 09/07/16 09/08/16 09/08/16 23:50 05:46 06:18 WBC 17.8 H RBC 3.58 L Hgb 8.1 L Hct 25.5 L MCV 71 L MCH 23 L MCHC RDW 18.4 H Plt Count Lymph % (Auto) [place] % (Auto) Lymph # [place] # Baso # Seg Neutrophils % Seg Neuts % (Manual) 92.0 H Lymphocytes % (Manual) 6.0 L Monocytes % (Manual) Eosinophils % (Manual) Basophils % (Manual) Nucleated RBC % Seg Neutrophils # Seg Neutrophils # Man 16.4 H Lymphocytes # (Manual) 1.1 L Monocytes # (Manual) Eosinophils # (Manual) PT INR Fibrinogen dRVVT Confirm Interp Factor V Activity POC ABG pH POC ABG pCO2 34.3 L POC ABG pO2 71 L ABG pO2 ABG HCO3 ABG Base Excess ABG Hemoglobin Oxyhemoglobin Sodium Potassium Chloride Carbon Dioxide BUN Creatinine Glucose POC Glucose 216 H Lactic Acid Calcium Phosphorus Magnesium Direct Bilirubin AST ALT Alkaline Phosphatase Lactate Dehydrogenase Troponin T C-Reactive Protein Total Protein Albumin Prealbumin Triglycerides Cholesterol LDL Cholesterol Direct HDL Cholesterol Urine pH Urine WBC (Auto) Urine Creatinine Urine Total Protein Fluid Total Protein Vancomycin Trough Rheumatoid Factor Complement C4 Miscellaneous Test Crossmatch 09/08/16 09/08/16 09/08/16 06:18 06:51 10:55 WBC RBC Hgb Hct MCV MCH MCHC RDW Plt Count Lymph % (Auto) [place] % (Auto) Lymph # [place] # Baso # Seg Neutrophils % Seg Neuts % (Manual) Lymphocytes % (Manual) Monocytes % (Manual) Eosinophils % (Manual) Basophils % (Manual) Nucleated RBC % Seg Neutrophils # Seg Neutrophils # Man Lymphocytes # (Manual) Monocytes # (Manual) Eosinophils # (Manual) PT INR Fibrinogen dRVVT Confirm Interp Factor V Activity POC ABG pH POC ABG pCO2 POC ABG pO2 ABG pO2 ABG HCO3 ABG Base Excess ABG Hemoglobin Oxyhemoglobin Sodium 133 L Potassium Chloride 96.9 L Carbon Dioxide 20 L BUN 63 H Creatinine 2.7 H Glucose 195 H POC Glucose 204 H 169 H Lactic Acid Calcium Phosphorus Magnesium Direct Bilirubin AST ALT Alkaline Phosphatase Lactate Dehydrogenase Troponin T C-Reactive Protein Total Protein Albumin Prealbumin Triglycerides Cholesterol LDL Cholesterol Direct HDL Cholesterol Urine pH Urine WBC (Auto) Urine Creatinine Urine Total Protein Fluid Total Protein Vancomycin Trough Rheumatoid Factor Complement C4 Miscellaneous Test Crossmatch 09/08/16 09/08/16 09/08/16 11:48 11:48 11:48 WBC RBC Hgb Hct MCV MCH MCHC RDW Plt Count Lymph % (Auto) [place] % (Auto) Lymph # [place] # Baso # Seg Neutrophils % Seg Neuts % (Manual) Lymphocytes % (Manual) Monocytes % (Manual) Eosinophils % (Manual) Basophils % (Manual) Nucleated RBC % Seg Neutrophils # Seg Neutrophils # Man Lymphocytes # (Manual) Monocytes # (Manual) Eosinophils # (Manual) PT INR Fibrinogen 750 H dRVVT Confirm Interp Factor V Activity POC ABG pH POC ABG pCO2 POC ABG pO2 ABG pO2 ABG HCO3 ABG Base Excess ABG Hemoglobin Oxyhemoglobin Sodium Potassium Chloride Carbon Dioxide BUN Creatinine Glucose POC Glucose Lactic Acid Calcium Phosphorus Magnesium Direct Bilirubin AST ALT Alkaline Phosphatase Lactate Dehydrogenase Troponin T C-Reactive Protein 15.70 H Total Protein Albumin Prealbumin Triglycerides Cholesterol LDL Cholesterol Direct HDL Cholesterol Urine pH Urine WBC (Auto) Urine Creatinine Urine Total Protein Fluid Total Protein Vancomycin Trough Rheumatoid Factor 24 H Complement C4 Miscellaneous Test Crossmatch 09/08/16 09/08/16 09/09/16 15:35 18:25 00:24 WBC RBC Hgb Hct MCV MCH MCHC RDW Plt Count Lymph % (Auto) [place] % (Auto) Lymph # [place] # Baso # Seg Neutrophils % Seg Neuts % (Manual) Lymphocytes % (Manual) Monocytes % (Manual) Eosinophils % (Manual) Basophils % (Manual) Nucleated RBC % Seg Neutrophils # Seg Neutrophils # Man Lymphocytes # (Manual) Monocytes # (Manual) Eosinophils # (Manual) PT INR Fibrinogen dRVVT Confirm Interp Factor V Activity 182 H POC ABG pH POC ABG pCO2 POC ABG pO2 ABG pO2 ABG HCO3 ABG Base Excess ABG Hemoglobin Oxyhemoglobin Sodium Potassium Chloride Carbon Dioxide BUN Creatinine Glucose POC Glucose 184 H 216 H Lactic Acid Calcium Phosphorus Magnesium Direct Bilirubin AST ALT Alkaline Phosphatase Lactate Dehydrogenase Troponin T C-Reactive Protein Total Protein Albumin Prealbumin Triglycerides Cholesterol LDL Cholesterol Direct HDL Cholesterol Urine pH Urine WBC (Auto) Urine Creatinine Urine Total Protein Fluid Total Protein Vancomycin Trough Rheumatoid Factor Complement C4 Miscellaneous Test Crossmatch 09/09/16 09/09/16 09/09/16 03:00 03:00 04:04 WBC 27.9 H RBC Hgb 8.7 L Hct 28.1 L MCV 72 L MCH 22 L MCHC RDW 18.4 H Plt Count 485 H Lymph % (Auto) [place] % (Auto) Lymph # [place] # Baso # Seg Neutrophils % Seg Neuts % (Manual) 77.0 H Lymphocytes % (Manual) 9.0 L Monocytes % (Manual) Eosinophils % (Manual) Basophils % (Manual) Nucleated RBC % Seg Neutrophils # Seg Neutrophils # Man 21.5 H Lymphocytes # (Manual) Monocytes # (Manual) 2.0 H Eosinophils # (Manual) PT INR Fibrinogen dRVVT Confirm Interp Factor V Activity POC ABG pH POC ABG pCO2 POC ABG pO2 121 H ABG pO2 ABG HCO3 ABG Base Excess ABG Hemoglobin Oxyhemoglobin Sodium 135 L Potassium Chloride 96.3 L Carbon Dioxide 21 L BUN 83 H Creatinine 3.0 H Glucose 135 H POC Glucose Lactic Acid Calcium Phosphorus Magnesium Direct Bilirubin AST ALT Alkaline Phosphatase Lactate Dehydrogenase Troponin T C-Reactive Protein Total Protein Albumin Prealbumin Triglycerides Cholesterol LDL Cholesterol Direct HDL Cholesterol Urine pH Urine WBC (Auto) Urine Creatinine Urine Total Protein Fluid Total Protein Vancomycin Trough Rheumatoid Factor Complement C4 Miscellaneous Test Crossmatch 09/09/16 09/09/16 09/09/16 05:41 11:55 14:13 WBC RBC Hgb Hct MCV MCH MCHC RDW Plt Count Lymph % (Auto) [place] % (Auto) Lymph # [place] # Baso # Seg Neutrophils % Seg Neuts % (Manual) Lymphocytes % (Manual) Monocytes % (Manual) Eosinophils % (Manual) Basophils % (Manual) Nucleated RBC % Seg Neutrophils # Seg Neutrophils # Man Lymphocytes # (Manual) Monocytes # (Manual) Eosinophils # (Manual) PT INR Fibrinogen dRVVT Confirm Interp Factor V Activity POC ABG pH POC ABG pCO2 POC ABG pO2 ABG pO2 ABG HCO3 ABG Base Excess ABG Hemoglobin Oxyhemoglobin Sodium Potassium Chloride Carbon Dioxide BUN Creatinine Glucose POC Glucose 155 H 186 H Lactic Acid Calcium Phosphorus Magnesium Direct Bilirubin AST ALT Alkaline Phosphatase Lactate Dehydrogenase Troponin T C-Reactive Protein Total Protein Albumin Prealbumin Triglycerides Cholesterol LDL Cholesterol Direct HDL Cholesterol Urine pH Urine WBC (Auto) 25.0 H Urine Creatinine Urine Total Protein Fluid Total Protein Vancomycin Trough Rheumatoid Factor Complement C4 Miscellaneous Test Crossmatch 09/09/16 09/09/16 09/10/16 17:33 23:13 05:09 WBC RBC Hgb Hct MCV MCH MCHC RDW Plt Count Lymph % (Auto) [place] % (Auto) Lymph # [place] # Baso # Seg Neutrophils % Seg Neuts % (Manual) Lymphocytes % (Manual) Monocytes % (Manual) Eosinophils % (Manual) Basophils % (Manual) Nucleated RBC % Seg Neutrophils # Seg Neutrophils # Man Lymphocytes # (Manual) Monocytes # (Manual) Eosinophils # (Manual) PT INR Fibrinogen dRVVT Confirm Interp Factor V Activity POC ABG pH POC ABG pCO2 POC ABG pO2 74 L ABG pO2 ABG HCO3 ABG Base Excess ABG Hemoglobin Oxyhemoglobin Sodium Potassium Chloride Carbon Dioxide BUN Creatinine Glucose POC Glucose 211 H 215 H Lactic Acid Calcium Phosphorus Magnesium Direct Bilirubin AST ALT Alkaline Phosphatase Lactate Dehydrogenase Troponin T C-Reactive Protein Total Protein Albumin Prealbumin Triglycerides Cholesterol LDL Cholesterol Direct HDL Cholesterol Urine pH Urine WBC (Auto) Urine Creatinine Urine Total Protein Fluid Total Protein Vancomycin Trough Rheumatoid Factor Complement C4 Miscellaneous Test Crossmatch 09/10/16 09/10/16 09/10/16 05:17 05:17 11:31 WBC 15.8 H RBC 3.25 L Hgb 7.3 L Hct 22.9 L MCV 71 L MCH 23 L MCHC RDW 18.4 H Plt Count Lymph % (Auto) [place] % (Auto) Lymph # [place] # Baso # Seg Neutrophils % Seg Neuts % (Manual) 91.0 H Lymphocytes % (Manual) 4.0 L Monocytes % (Manual) Eosinophils % (Manual) Basophils % (Manual) Nucleated RBC % Seg Neutrophils # Seg Neutrophils # Man 14.4 H Lymphocytes # (Manual) 0.6 L Monocytes # (Manual) Eosinophils # (Manual) PT INR Fibrinogen dRVVT Confirm Interp Factor V Activity POC ABG pH POC ABG pCO2 POC ABG pO2 ABG pO2 ABG HCO3 ABG Base Excess ABG Hemoglobin Oxyhemoglobin Sodium Potassium Chloride Carbon Dioxide 21 L BUN 93 H Creatinine 2.9 H Glucose 146 H POC Glucose 188 H Lactic Acid Calcium 8.1 L Phosphorus Magnesium Direct Bilirubin AST ALT Alkaline Phosphatase Lactate Dehydrogenase Troponin T C-Reactive Protein Total Protein Albumin Prealbumin Triglycerides Cholesterol LDL Cholesterol Direct HDL Cholesterol Urine pH Urine WBC (Auto) Urine Creatinine Urine Total Protein Fluid Total Protein Vancomycin Trough Rheumatoid Factor Complement C4 Miscellaneous Test Crossmatch 09/10/16 09/10/16 09/10/16 13:17 17:20 23:32 WBC RBC Hgb Hct MCV MCH MCHC RDW Plt Count Lymph % (Auto) [place] % (Auto) Lymph # [place] # Baso # Seg Neutrophils % Seg Neuts % (Manual) Lymphocytes % (Manual) Monocytes % (Manual) Eosinophils % (Manual) Basophils % (Manual) Nucleated RBC % Seg Neutrophils # Seg Neutrophils # Man Lymphocytes # (Manual) Monocytes # (Manual) Eosinophils # (Manual) PT INR Fibrinogen dRVVT Confirm Interp Factor V Activity POC ABG pH POC ABG pCO2 POC ABG pO2 ABG pO2 ABG HCO3 ABG Base Excess ABG Hemoglobin Oxyhemoglobin Sodium Potassium Chloride Carbon Dioxide BUN Creatinine Glucose POC Glucose 199 H 186 H Lactic Acid Calcium Phosphorus Magnesium Direct Bilirubin AST ALT Alkaline Phosphatase Lactate Dehydrogenase Troponin T C-Reactive Protein Total Protein Albumin Prealbumin Triglycerides Cholesterol LDL Cholesterol Direct HDL Cholesterol Urine pH Urine WBC (Auto) Urine Creatinine Urine Total Protein Fluid Total Protein Vancomycin Trough Rheumatoid Factor Complement C4 Miscellaneous Test Crossmatch See Detail 09/11/16 09/11/16 09/11/16 05:10 05:10 05:17 WBC 28.4 H RBC Hgb 9.2 L Hct 29.3 L D MCV 73 L MCH 23 L MCHC RDW 18.9 H Plt Count 452 H Lymph % (Auto) [place] % (Auto) Lymph # [place] # Baso # Seg Neutrophils % Seg Neuts % (Manual) 89.5 H Lymphocytes % (Manual) 2.0 L Monocytes % (Manual) Eosinophils % (Manual) Basophils % (Manual) Nucleated RBC % Seg Neutrophils # Seg Neutrophils # Man 25.4 H Lymphocytes # (Manual) 0.6 L Monocytes # (Manual) 1.3 H Eosinophils # (Manual) PT INR Fibrinogen dRVVT Confirm Interp Factor V Activity POC ABG pH POC ABG pCO2 POC ABG pO2 ABG pO2 ABG HCO3 ABG Base Excess ABG Hemoglobin Oxyhemoglobin Sodium 136 L Potassium Chloride Carbon Dioxide 18 L BUN 107 H Creatinine 2.6 H Glucose 187 H POC Glucose 230 H Lactic Acid Calcium 8.3 L Phosphorus Magnesium Direct Bilirubin AST ALT Alkaline Phosphatase Lactate Dehydrogenase Troponin T C-Reactive Protein Total Protein Albumin Prealbumin Triglycerides Cholesterol LDL Cholesterol Direct HDL Cholesterol Urine pH Urine WBC (Auto) Urine Creatinine Urine Total Protein Fluid Total Protein Vancomycin Trough Rheumatoid Factor Complement C4 Miscellaneous Test Crossmatch 09/11/16 09/11/16 09/11/16 05:55 12:02 17:32 WBC RBC Hgb Hct MCV MCH MCHC RDW Plt Count Lymph % (Auto) [place] % (Auto) Lymph # [place] # Baso # Seg Neutrophils % Seg Neuts % (Manual) Lymphocytes % (Manual) Monocytes % (Manual) Eosinophils % (Manual) Basophils % (Manual) Nucleated RBC % Seg Neutrophils # Seg Neutrophils # Man Lymphocytes # (Manual) Monocytes # (Manual) Eosinophils # (Manual) PT INR Fibrinogen dRVVT Confirm Interp Factor V Activity POC ABG pH POC ABG pCO2 33.8 L POC ABG pO2 ABG pO2 ABG HCO3 ABG Base Excess ABG Hemoglobin Oxyhemoglobin Sodium Potassium Chloride Carbon Dioxide BUN Creatinine Glucose POC Glucose 191 H 239 H Lactic Acid Calcium Phosphorus Magnesium Direct Bilirubin AST ALT Alkaline Phosphatase Lactate Dehydrogenase Troponin T C-Reactive Protein Total Protein Albumin Prealbumin Triglycerides Cholesterol LDL Cholesterol Direct HDL Cholesterol Urine pH Urine WBC (Auto) Urine Creatinine Urine Total Protein Fluid Total Protein Vancomycin Trough Rheumatoid Factor Complement C4 Miscellaneous Test Crossmatch 09/11/16 09/12/16 09/12/16 23:52 05:09 05:32 WBC RBC Hgb Hct MCV MCH MCHC RDW Plt Count Lymph % (Auto) [place] % (Auto) Lymph # [place] # Baso # Seg Neutrophils % Seg Neuts % (Manual) Lymphocytes % (Manual) Monocytes % (Manual) Eosinophils % (Manual) Basophils % (Manual) Nucleated RBC % Seg Neutrophils # Seg Neutrophils # Man Lymphocytes # (Manual) Monocytes # (Manual) Eosinophils # (Manual) PT INR Fibrinogen dRVVT Confirm Interp Factor V Activity POC ABG pH POC ABG pCO2 34.6 L POC ABG pO2 ABG pO2 ABG HCO3 ABG Base Excess ABG Hemoglobin Oxyhemoglobin Sodium Potassium Chloride Carbon Dioxide BUN Creatinine Glucose POC Glucose 265 H 184 H Lactic Acid Calcium Phosphorus Magnesium Direct Bilirubin AST ALT Alkaline Phosphatase Lactate Dehydrogenase Troponin T C-Reactive Protein Total Protein Albumin Prealbumin Triglycerides Cholesterol LDL Cholesterol Direct HDL Cholesterol Urine pH Urine WBC (Auto) Urine Creatinine Urine Total Protein Fluid Total Protein Vancomycin Trough Rheumatoid Factor Complement C4 Miscellaneous Test Crossmatch 09/12/16 09/12/16 09/12/16 06:45 06:45 07:22 WBC 31.7 H RBC 3.54 L Hgb 8.3 L Hct 25.9 L MCV 73 L MCH 23 L MCHC RDW 18.9 H Plt Count Lymph % (Auto) [place] % (Auto) Lymph # [place] # Baso # Seg Neutrophils % Seg Neuts % (Manual) 88.5 H Lymphocytes % (Manual) 4.5 L Monocytes % (Manual) Eosinophils % (Manual) Basophils % (Manual) Nucleated RBC % Seg Neutrophils # Seg Neutrophils # Man 28.1 H Lymphocytes # (Manual) Monocytes # (Manual) 1.0 H Eosinophils # (Manual) PT INR Fibrinogen dRVVT Confirm Interp Factor V Activity POC ABG pH POC ABG pCO2 POC ABG pO2 ABG pO2 ABG HCO3 ABG Base Excess ABG Hemoglobin Oxyhemoglobin Sodium Potassium Chloride Carbon Dioxide 20 L BUN 115 H Creatinine 2.7 H Glucose 165 H POC Glucose Lactic Acid Calcium 8.0 L Phosphorus Magnesium Direct Bilirubin AST ALT Alkaline Phosphatase Lactate Dehydrogenase Troponin T C-Reactive Protein Total Protein Albumin Prealbumin Triglycerides 217 H Cholesterol LDL Cholesterol Direct HDL Cholesterol Urine pH Urine WBC (Auto) Urine Creatinine Urine Total Protein Fluid Total Protein Vancomycin Trough Rheumatoid Factor Complement C4 Miscellaneous Test Crossmatch 09/12/16 09/12/16 09/12/16 07:22 09:59 12:21 WBC RBC Hgb Hct MCV MCH MCHC RDW Plt Count Lymph % (Auto) [place] % (Auto) Lymph # [place] # Baso # Seg Neutrophils % Seg Neuts % (Manual) Lymphocytes % (Manual) Monocytes % (Manual) Eosinophils % (Manual) Basophils % (Manual) Nucleated RBC % Seg Neutrophils # Seg Neutrophils # Man Lymphocytes # (Manual) Monocytes # (Manual) Eosinophils # (Manual) PT INR Fibrinogen dRVVT Confirm Interp Positive H Factor V Activity POC ABG pH POC ABG pCO2 POC ABG pO2 ABG pO2 ABG HCO3 ABG Base Excess ABG Hemoglobin Oxyhemoglobin Sodium Potassium Chloride Carbon Dioxide BUN Creatinine Glucose POC Glucose 224 H Lactic Acid Calcium Phosphorus Magnesium Direct Bilirubin AST ALT Alkaline Phosphatase Lactate Dehydrogenase Troponin T C-Reactive Protein 1.70 H Total Protein Albumin Prealbumin Triglycerides Cholesterol LDL Cholesterol Direct HDL Cholesterol Urine pH Urine WBC (Auto) Urine Creatinine Urine Total Protein Fluid Total Protein Vancomycin Trough Rheumatoid Factor Complement C4 Miscellaneous Test Crossmatch 09/12/16 09/12/16 09/13/16 16:51 23:28 04:00 WBC 45.0 H* RBC Hgb 9.4 L Hct MCV 75 L MCH 23 L MCHC RDW 19.0 H Plt Count 470 H Lymph % (Auto) [place] % (Auto) Lymph # [place] # Baso # Seg Neutrophils % Seg Neuts % (Manual) 89.0 H Lymphocytes % (Manual) 5.0 L Monocytes % (Manual) Eosinophils % (Manual) Basophils % (Manual) Nucleated RBC % Seg Neutrophils # Seg Neutrophils # Man 40.1 H Lymphocytes # (Manual) Monocytes # (Manual) Eosinophils # (Manual) PT INR Fibrinogen dRVVT Confirm Interp Factor V Activity POC ABG pH POC ABG pCO2 POC ABG pO2 ABG pO2 ABG HCO3 ABG Base Excess ABG Hemoglobin Oxyhemoglobin Sodium Potassium Chloride Carbon Dioxide BUN Creatinine Glucose POC Glucose 169 H 150 H Lactic Acid Calcium Phosphorus Magnesium Direct Bilirubin AST ALT Alkaline Phosphatase Lactate Dehydrogenase Troponin T C-Reactive Protein Total Protein Albumin Prealbumin Triglycerides Cholesterol LDL Cholesterol Direct HDL Cholesterol Urine pH Urine WBC (Auto) Urine Creatinine Urine Total Protein Fluid Total Protein Vancomycin Trough Rheumatoid Factor Complement C4 Miscellaneous Test Crossmatch 09/13/16 09/13/16 09/13/16 04:00 11:26 17:31 WBC RBC Hgb Hct MCV MCH MCHC RDW Plt Count Lymph % (Auto) [place] % (Auto) Lymph # [place] # Baso # Seg Neutrophils % Seg Neuts % (Manual) Lymphocytes % (Manual) Monocytes % (Manual) Eosinophils % (Manual) Basophils % (Manual) Nucleated RBC % Seg Neutrophils # Seg Neutrophils # Man Lymphocytes # (Manual) Monocytes # (Manual) Eosinophils # (Manual) PT INR Fibrinogen dRVVT Confirm Interp Factor V Activity POC ABG pH POC ABG pCO2 POC ABG pO2 ABG pO2 ABG HCO3 ABG Base Excess ABG Hemoglobin Oxyhemoglobin Sodium Potassium Chloride Carbon Dioxide 20 L BUN 116 H Creatinine 3.0 H Glucose 172 H POC Glucose 140 H 183 H Lactic Acid Calcium Phosphorus Magnesium Direct Bilirubin AST ALT Alkaline Phosphatase Lactate Dehydrogenase Troponin T C-Reactive Protein Total Protein 6.2 L Albumin 2.9 L Prealbumin Triglycerides Cholesterol LDL Cholesterol Direct HDL Cholesterol Urine pH Urine WBC (Auto) Urine Creatinine Urine Total Protein Fluid Total Protein Vancomycin Trough Rheumatoid Factor Complement C4 Miscellaneous Test Crossmatch 09/13/16 09/14/16 09/14/16 23:23 04:06 04:07 WBC 29.4 H RBC Hgb 8.9 L Hct 27.3 L MCV 75 L MCH 24 L MCHC RDW 19.1 H Plt Count Lymph % (Auto) [place] % (Auto) Lymph # [place] # Baso # Seg Neutrophils % Seg Neuts % (Manual) 84.0 H Lymphocytes % (Manual) 6.0 L Monocytes % (Manual) 9.0 H Eosinophils % (Manual) Basophils % (Manual) Nucleated RBC % Seg Neutrophils # Seg Neutrophils # Man 24.7 H Lymphocytes # (Manual) Monocytes # (Manual) 2.6 H Eosinophils # (Manual) PT INR Fibrinogen dRVVT Confirm Interp Factor V Activity POC ABG pH 7.342 L POC ABG pCO2 POC ABG pO2 116 H ABG pO2 ABG HCO3 ABG Base Excess ABG Hemoglobin Oxyhemoglobin Sodium Potassium Chloride Carbon Dioxide BUN Creatinine Glucose POC Glucose 154 H Lactic Acid Calcium Phosphorus Magnesium Direct Bilirubin AST ALT Alkaline Phosphatase Lactate Dehydrogenase Troponin T C-Reactive Protein Total Protein Albumin Prealbumin Triglycerides Cholesterol LDL Cholesterol Direct HDL Cholesterol Urine pH Urine WBC (Auto) Urine Creatinine Urine Total Protein Fluid Total Protein Vancomycin Trough Rheumatoid Factor Complement C4 Miscellaneous Test Crossmatch 09/14/16 09/14/16 09/14/16 04:07 05:29 12:19 WBC RBC Hgb Hct MCV MCH MCHC RDW Plt Count Lymph % (Auto) [place] % (Auto) Lymph # [place] # Baso # Seg Neutrophils % Seg Neuts % (Manual) Lymphocytes % (Manual) Monocytes % (Manual) Eosinophils % (Manual) Basophils % (Manual) Nucleated RBC % Seg Neutrophils # Seg Neutrophils # Man Lymphocytes # (Manual) Monocytes # (Manual) Eosinophils # (Manual) PT INR Fibrinogen dRVVT Confirm Interp Factor V Activity POC ABG pH POC ABG pCO2 POC ABG pO2 ABG pO2 ABG HCO3 ABG Base Excess ABG Hemoglobin Oxyhemoglobin Sodium 136 L Potassium Chloride Carbon Dioxide 18 L BUN 121 H Creatinine 2.8 H Glucose 214 H POC Glucose 239 H 181 H Lactic Acid Calcium Phosphorus Magnesium Direct Bilirubin AST ALT Alkaline Phosphatase Lactate Dehydrogenase Troponin T C-Reactive Protein Total Protein Albumin Prealbumin Triglycerides Cholesterol LDL Cholesterol Direct HDL Cholesterol Urine pH Urine WBC (Auto) Urine Creatinine Urine Total Protein Fluid Total Protein Vancomycin Trough Rheumatoid Factor Complement C4 Miscellaneous Test Crossmatch 09/14/16 09/14/16 09/15/16 18:12 23:37 05:00 WBC 26.1 H RBC 3.05 L Hgb 7.2 L Hct 22.9 L MCV 75 L MCH 24 L MCHC RDW 19.0 H Plt Count Lymph % (Auto) [place] % (Auto) Lymph # [place] # Baso # Seg Neutrophils % Seg Neuts % (Manual) Lymphocytes % (Manual) Monocytes % (Manual) Eosinophils % (Manual) Basophils % (Manual) Nucleated RBC % Seg Neutrophils # Seg Neutrophils # Man Lymphocytes # (Manual) Monocytes # (Manual) Eosinophils # (Manual) PT INR Fibrinogen dRVVT Confirm Interp Factor V Activity POC ABG pH POC ABG pCO2 POC ABG pO2 ABG pO2 ABG HCO3 ABG Base Excess ABG Hemoglobin Oxyhemoglobin Sodium Potassium Chloride Carbon Dioxide BUN Creatinine Glucose POC Glucose 266 H 154 H Lactic Acid Calcium Phosphorus Magnesium Direct Bilirubin AST ALT Alkaline Phosphatase Lactate Dehydrogenase Troponin T C-Reactive Protein Total Protein Albumin Prealbumin Triglycerides Cholesterol LDL Cholesterol Direct HDL Cholesterol Urine pH Urine WBC (Auto) Urine Creatinine Urine Total Protein Fluid Total Protein Vancomycin Trough Rheumatoid Factor Complement C4 Miscellaneous Test Crossmatch 09/15/16 09/15/16 09/15/16 05:00 05:17 12:45 WBC RBC Hgb Hct MCV MCH MCHC RDW Plt Count Lymph % (Auto) [place] % (Auto) Lymph # [place] # Baso # Seg Neutrophils % Seg Neuts % (Manual) Lymphocytes % (Manual) Monocytes % (Manual) Eosinophils % (Manual) Basophils % (Manual) Nucleated RBC % Seg Neutrophils # Seg Neutrophils # Man Lymphocytes # (Manual) Monocytes # (Manual) Eosinophils # (Manual) PT INR Fibrinogen dRVVT Confirm Interp Factor V Activity POC ABG pH POC ABG pCO2 POC ABG pO2 ABG pO2 ABG HCO3 ABG Base Excess ABG Hemoglobin Oxyhemoglobin Sodium Potassium 5.2 H Chloride Carbon Dioxide 18 L BUN 139 H Creatinine 3.7 H Glucose 227 H POC Glucose 226 H 244 H Lactic Acid Calcium 8.3 L Phosphorus Magnesium Direct Bilirubin AST ALT Alkaline Phosphatase Lactate Dehydrogenase Troponin T C-Reactive Protein Total Protein Albumin Prealbumin Triglycerides Cholesterol LDL Cholesterol Direct HDL Cholesterol Urine pH Urine WBC (Auto) Urine Creatinine Urine Total Protein Fluid Total Protein Vancomycin Trough Rheumatoid Factor Complement C4 Miscellaneous Test Crossmatch 09/15/16 09/15/16 09/15/16 14:32 17:33 23:35 WBC RBC Hgb Hct MCV MCH MCHC RDW Plt Count Lymph % (Auto) [place] % (Auto) Lymph # [place] # Baso # Seg Neutrophils % Seg Neuts % (Manual) Lymphocytes % (Manual) Monocytes % (Manual) Eosinophils % (Manual) Basophils % (Manual) Nucleated RBC % Seg Neutrophils # Seg Neutrophils # Man Lymphocytes # (Manual) Monocytes # (Manual) Eosinophils # (Manual) PT INR Fibrinogen dRVVT Confirm Interp Factor V Activity POC ABG pH POC ABG pCO2 27.7 L POC ABG pO2 120 H ABG pO2 ABG HCO3 ABG Base Excess ABG Hemoglobin Oxyhemoglobin Sodium Potassium Chloride Carbon Dioxide BUN Creatinine Glucose POC Glucose 232 H 167 H Lactic Acid Calcium Phosphorus Magnesium Direct Bilirubin AST ALT Alkaline Phosphatase Lactate Dehydrogenase Troponin T C-Reactive Protein Total Protein Albumin Prealbumin Triglycerides Cholesterol LDL Cholesterol Direct HDL Cholesterol Urine pH Urine WBC (Auto) Urine Creatinine Urine Total Protein Fluid Total Protein Vancomycin Trough Rheumatoid Factor Complement C4 Miscellaneous Test Crossmatch 09/16/16 09/16/16 09/16/16 03:58 10:27 10:27 WBC 19.0 H RBC 2.77 L Hgb 6.5 L Hct 20.9 L MCV 76 L MCH 23 L MCHC RDW 19.3 H Plt Count Lymph % (Auto) 11.0 L [place] % (Auto) Lymph # [place] # 1.1 H Baso # Seg Neutrophils % 82.5 H Seg Neuts % (Manual) Lymphocytes % (Manual) Monocytes % (Manual) Eosinophils % (Manual) Basophils % (Manual) Nucleated RBC % Seg Neutrophils # 15.7 H Seg Neutrophils # Man Lymphocytes # (Manual) Monocytes # (Manual) Eosinophils # (Manual) PT INR Fibrinogen dRVVT Confirm Interp Factor V Activity POC ABG pH POC ABG pCO2 POC ABG pO2 ABG pO2 ABG HCO3 ABG Base Excess ABG Hemoglobin Oxyhemoglobin Sodium Potassium Chloride 109.3 H Carbon Dioxide 18 L BUN 139 H Creatinine 4.1 H Glucose 144 H POC Glucose 146 H Lactic Acid Calcium 8.1 L Phosphorus Magnesium Direct Bilirubin AST ALT Alkaline Phosphatase Lactate Dehydrogenase Troponin T C-Reactive Protein Total Protein Albumin Prealbumin Triglycerides Cholesterol LDL Cholesterol Direct HDL Cholesterol Urine pH Urine WBC (Auto) Urine Creatinine Urine Total Protein Fluid Total Protein Vancomycin Trough Rheumatoid Factor Complement C4 Miscellaneous Test Crossmatch 09/16/16 09/16/16 09/16/16 12:04 12:10 13:55 WBC RBC Hgb Hct MCV MCH MCHC RDW Plt Count Lymph % (Auto) [place] % (Auto) Lymph # [place] # Baso # Seg Neutrophils % Seg Neuts % (Manual) Lymphocytes % (Manual) Monocytes % (Manual) Eosinophils % (Manual) Basophils % (Manual) Nucleated RBC % Seg Neutrophils # Seg Neutrophils # Man Lymphocytes # (Manual) Monocytes # (Manual) Eosinophils # (Manual) PT INR Fibrinogen dRVVT Confirm Interp Factor V Activity POC ABG pH POC ABG pCO2 32.9 L POC ABG pO2 ABG pO2 ABG HCO3 ABG Base Excess ABG Hemoglobin Oxyhemoglobin Sodium Potassium Chloride Carbon Dioxide BUN Creatinine Glucose POC Glucose 185 H Lactic Acid Calcium Phosphorus Magnesium Direct Bilirubin AST ALT Alkaline Phosphatase Lactate Dehydrogenase Troponin T C-Reactive Protein Total Protein Albumin Prealbumin Triglycerides Cholesterol LDL Cholesterol Direct HDL Cholesterol Urine pH Urine WBC (Auto) Urine Creatinine Urine Total Protein Fluid Total Protein Vancomycin Trough Rheumatoid Factor Complement C4 Miscellaneous Test Crossmatch See Detail 09/16/16 09/16/16 09/16/16 17:55 19:19 23:48 WBC RBC Hgb Hct MCV MCH MCHC RDW Plt Count Lymph % (Auto) [place] % (Auto) Lymph # [place] # Baso # Seg Neutrophils % Seg Neuts % (Manual) Lymphocytes % (Manual) Monocytes % (Manual) Eosinophils % (Manual) Basophils % (Manual) Nucleated RBC % Seg Neutrophils # Seg Neutrophils # Man Lymphocytes # (Manual) Monocytes # (Manual) Eosinophils # (Manual) PT INR Fibrinogen dRVVT Confirm Interp Factor V Activity POC ABG pH POC ABG pCO2 POC ABG pO2 ABG pO2 ABG HCO3 ABG Base Excess ABG Hemoglobin Oxyhemoglobin Sodium Potassium Chloride Carbon Dioxide BUN Creatinine Glucose POC Glucose 222 H 107 H Lactic Acid Calcium Phosphorus Magnesium Direct Bilirubin AST ALT Alkaline Phosphatase Lactate Dehydrogenase Troponin T C-Reactive Protein Total Protein Albumin Prealbumin Triglycerides Cholesterol LDL Cholesterol Direct HDL Cholesterol Urine pH Urine WBC (Auto) Urine Creatinine 47.4 H Urine Total Protein 16 H Fluid Total Protein Vancomycin Trough Rheumatoid Factor Complement C4 Miscellaneous Test Crossmatch 09/17/16 09/17/16 09/17/16 03:45 03:45 04:55 WBC 19.6 H RBC 3.41 L Hgb 8.5 L Hct 26.7 L MCV 78 L MCH 25 L MCHC RDW 19.9 H Plt Count Lymph % (Auto) 9.3 L [place] % (Auto) Lymph # [place] # 1.2 H Baso # Seg Neutrophils % 83.9 H Seg Neuts % (Manual) Lymphocytes % (Manual) Monocytes % (Manual) Eosinophils % (Manual) Basophils % (Manual) Nucleated RBC % Seg Neutrophils # 16.4 H Seg Neutrophils # Man Lymphocytes # (Manual) Monocytes # (Manual) Eosinophils # (Manual) PT INR Fibrinogen dRVVT Confirm Interp Factor V Activity POC ABG pH POC ABG pCO2 POC ABG pO2 ABG pO2 ABG HCO3 ABG Base Excess ABG Hemoglobin Oxyhemoglobin Sodium 146 H Potassium 5.1 H Chloride 110.9 H Carbon Dioxide 16 L BUN 146 H Creatinine 4.0 H Glucose 108 H POC Glucose 133 H Lactic Acid Calcium Phosphorus Magnesium 3.00 H Direct Bilirubin AST ALT Alkaline Phosphatase Lactate Dehydrogenase Troponin T C-Reactive Protein Total Protein Albumin Prealbumin Triglycerides Cholesterol LDL Cholesterol Direct HDL Cholesterol Urine pH Urine WBC (Auto) Urine Creatinine Urine Total Protein Fluid Total Protein Vancomycin Trough Rheumatoid Factor Complement C4 Miscellaneous Test Crossmatch 0709/17/16 09/17/16 11:15 17:33 23:47 WBC RBC Hgb Hct MCV MCH MCHC RDW Plt Count Lymph % (Auto) [place] % (Auto) Lymph # [place] # Baso # Seg Neutrophils % Seg Neuts % (Manual) Lymphocytes % (Manual) Monocytes % (Manual) Eosinophils % (Manual) Basophils % (Manual) Nucleated RBC % Seg Neutrophils # Seg Neutrophils # Man Lymphocytes # (Manual) Monocytes # (Manual) Eosinophils # (Manual) PT INR Fibrinogen dRVVT Confirm Interp Factor V Activity POC ABG pH POC ABG pCO2 POC ABG pO2 ABG pO2 ABG HCO3 ABG Base Excess ABG Hemoglobin Oxyhemoglobin Sodium Potassium Chloride Carbon Dioxide BUN Creatinine Glucose POC Glucose 176 H 246 H 148 H Lactic Acid Calcium Phosphorus Magnesium Direct Bilirubin AST ALT Alkaline Phosphatase Lactate Dehydrogenase Troponin T C-Reactive Protein Total Protein Albumin Prealbumin Triglycerides Cholesterol LDL Cholesterol Direct HDL Cholesterol Urine pH Urine WBC (Auto) Urine Creatinine Urine Total Protein Fluid Total Protein Vancomycin Trough Rheumatoid Factor Complement C4 Miscellaneous Test Crossmatch 09/18/16 09/18/16 09/18/16 05:33 08:31 08:31 WBC 18.0 H RBC 3.17 L Hgb 9.0 L Hct 25.7 L MCV MCH MCHC 35 H RDW 20.4 H Plt Count Lymph % (Auto) [place] % (Auto) Lymph # [place] # Baso # Seg Neutrophils % Seg Neuts % (Manual) Lymphocytes % (Manual) Monocytes % (Manual) Eosinophils % (Manual) Basophils % (Manual) Nucleated RBC % Seg Neutrophils # Seg Neutrophils # Man Lymphocytes # (Manual) Monocytes # (Manual) Eosinophils # (Manual) PT INR Fibrinogen dRVVT Confirm Interp Factor V Activity POC ABG pH POC ABG pCO2 POC ABG pO2 ABG pO2 ABG HCO3 ABG Base Excess ABG Hemoglobin Oxyhemoglobin Sodium Potassium Chloride Carbon Dioxide 15 L BUN 124 H Creatinine 3.8 H Glucose POC Glucose 120 H Lactic Acid Calcium 8.1 L Phosphorus Magnesium Direct Bilirubin AST ALT Alkaline Phosphatase Lactate Dehydrogenase Troponin T C-Reactive Protein Total Protein Albumin Prealbumin Triglycerides Cholesterol LDL Cholesterol Direct HDL Cholesterol Urine pH Urine WBC (Auto) Urine Creatinine Urine Total Protein Fluid Total Protein Vancomycin Trough Rheumatoid Factor Complement C4 Miscellaneous Test Crossmatch 09/18/16 09/18/16 09/18/16 12:03 15:34 17:50 WBC RBC Hgb Hct MCV MCH MCHC RDW Plt Count Lymph % (Auto) [place] % (Auto) Lymph # [place] # Baso # Seg Neutrophils % Seg Neuts % (Manual) Lymphocytes % (Manual) Monocytes % (Manual) Eosinophils % (Manual) Basophils % (Manual) Nucleated RBC % Seg Neutrophils # Seg Neutrophils # Man Lymphocytes # (Manual) Monocytes # (Manual) Eosinophils # (Manual) PT INR Fibrinogen dRVVT Confirm Interp Factor V Activity POC ABG pH POC ABG pCO2 25.7 L POC ABG pO2 66 L ABG pO2 ABG HCO3 ABG Base Excess ABG Hemoglobin Oxyhemoglobin Sodium Potassium Chloride Carbon Dioxide BUN Creatinine Glucose POC Glucose 156 H 220 H Lactic Acid Calcium Phosphorus Magnesium Direct Bilirubin AST ALT Alkaline Phosphatase Lactate Dehydrogenase Troponin T C-Reactive Protein Total Protein Albumin Prealbumin Triglycerides Cholesterol LDL Cholesterol Direct HDL Cholesterol Urine pH Urine WBC (Auto) Urine Creatinine Urine Total Protein Fluid Total Protein Vancomycin Trough Rheumatoid Factor Complement C4 Miscellaneous Test Crossmatch 09/19/16 09/19/16 09/19/16 06:21 09:50 09:50 WBC 17.1 H RBC 3.49 L Hgb 9.0 L Hct 28.1 L MCV MCH 26 L MCHC RDW 20.8 H Plt Count Lymph % (Auto) 11.5 L [place] % (Auto) 7.5 H Lymph # [place] # 1.3 H Baso # Seg Neutrophils % 79.8 H Seg Neuts % (Manual) Lymphocytes % (Manual) Monocytes % (Manual) Eosinophils % (Manual) Basophils % (Manual) Nucleated RBC % Seg Neutrophils # 13.7 H Seg Neutrophils # Man Lymphocytes # (Manual) Monocytes # (Manual) Eosinophils # (Manual) PT INR Fibrinogen dRVVT Confirm Interp Factor V Activity POC ABG pH POC ABG pCO2 POC ABG pO2 ABG pO2 ABG HCO3 ABG Base Excess ABG Hemoglobin Oxyhemoglobin Sodium Potassium Chloride 108.6 H Carbon Dioxide 15 L BUN 125 H Creatinine 4.1 H Glucose 124 H POC Glucose 119 H Lactic Acid Calcium Phosphorus Magnesium Direct Bilirubin AST ALT Alkaline Phosphatase Lactate Dehydrogenase Troponin T C-Reactive Protein Total Protein Albumin Prealbumin Triglycerides Cholesterol LDL Cholesterol Direct HDL Cholesterol Urine pH Urine WBC (Auto) Urine Creatinine Urine Total Protein Fluid Total Protein Vancomycin Trough Rheumatoid Factor Complement C4 Miscellaneous Test Crossmatch 09/19/16 09/19/16 09/19/16 11:25 17:53 23:36 WBC RBC Hgb Hct MCV MCH MCHC RDW Plt Count Lymph % (Auto) [place] % (Auto) Lymph # [place] # Baso # Seg Neutrophils % Seg Neuts % (Manual) Lymphocytes % (Manual) Monocytes % (Manual) Eosinophils % (Manual) Basophils % (Manual) Nucleated RBC % Seg Neutrophils # Seg Neutrophils # Man Lymphocytes # (Manual) Monocytes # (Manual) Eosinophils # (Manual) PT INR Fibrinogen dRVVT Confirm Interp Factor V Activity POC ABG pH POC ABG pCO2 POC ABG pO2 ABG pO2 ABG HCO3 ABG Base Excess ABG Hemoglobin Oxyhemoglobin Sodium Potassium Chloride Carbon Dioxide BUN Creatinine Glucose POC Glucose 160 H 245 H 121 H Lactic Acid Calcium Phosphorus Magnesium Direct Bilirubin AST ALT Alkaline Phosphatase Lactate Dehydrogenase Troponin T C-Reactive Protein Total Protein Albumin Prealbumin Triglycerides Cholesterol LDL Cholesterol Direct HDL Cholesterol Urine pH Urine WBC (Auto) Urine Creatinine Urine Total Protein Fluid Total Protein Vancomycin Trough Rheumatoid Factor Complement C4 Miscellaneous Test Crossmatch 09/20/16 09/20/16 09/20/16 04:10 04:10 04:10 WBC 17.0 H RBC 3.21 L Hgb 8.2 L Hct 25.5 L MCV MCH 26 L MCHC RDW 20.9 H Plt Count Lymph % (Auto) [place] % (Auto) Lymph # [place] # Baso # Seg Neutrophils % Seg Neuts % (Manual) Lymphocytes % (Manual) Monocytes % (Manual) Eosinophils % (Manual) Basophils % (Manual) Nucleated RBC % Seg Neutrophils # Seg Neutrophils # Man Lymphocytes # (Manual) Monocytes # (Manual) Eosinophils # (Manual) PT INR Fibrinogen dRVVT Confirm Interp Factor V Activity POC ABG pH POC ABG pCO2 POC ABG pO2 ABG pO2 ABG HCO3 ABG Base Excess ABG Hemoglobin Oxyhemoglobin Sodium Potassium Chloride 111.0 H Carbon Dioxide 16 L BUN 129 H Creatinine 3.7 H Glucose 115 H POC Glucose Lactic Acid Calcium 8.2 L Phosphorus Magnesium Direct Bilirubin AST ALT Alkaline Phosphatase Lactate Dehydrogenase Troponin T C-Reactive Protein Total Protein Albumin Prealbumin Triglycerides 243 H Cholesterol LDL Cholesterol Direct HDL Cholesterol Urine pH Urine WBC (Auto) Urine Creatinine Urine Total Protein Fluid Total Protein Vancomycin Trough Rheumatoid Factor Complement C4 Miscellaneous Test Crossmatch 09/20/16 09/20/16 09/20/16 05:40 11:52 16:50 WBC RBC Hgb Hct MCV MCH MCHC RDW Plt Count Lymph % (Auto) [place] % (Auto) Lymph # [place] # Baso # Seg Neutrophils % Seg Neuts % (Manual) Lymphocytes % (Manual) Monocytes % (Manual) Eosinophils % (Manual) Basophils % (Manual) Nucleated RBC % Seg Neutrophils # Seg Neutrophils # Man Lymphocytes # (Manual) Monocytes # (Manual) Eosinophils # (Manual) PT INR Fibrinogen dRVVT Confirm Interp Factor V Activity POC ABG pH POC ABG pCO2 POC ABG pO2 ABG pO2 ABG HCO3 ABG Base Excess ABG Hemoglobin Oxyhemoglobin Sodium Potassium Chloride Carbon Dioxide BUN Creatinine Glucose POC Glucose 131 H 183 H 236 H Lactic Acid Calcium Phosphorus Magnesium Direct Bilirubin AST ALT Alkaline Phosphatase Lactate Dehydrogenase Troponin T C-Reactive Protein Total Protein Albumin Prealbumin Triglycerides Cholesterol LDL Cholesterol Direct HDL Cholesterol Urine pH Urine WBC (Auto) Urine Creatinine Urine Total Protein Fluid Total Protein Vancomycin Trough Rheumatoid Factor Complement C4 Miscellaneous Test Crossmatch 09/20/16 09/21/16 09/21/16 23:51 03:30 04:44 WBC RBC Hgb Hct MCV MCH MCHC RDW Plt Count Lymph % (Auto) [place] % (Auto) Lymph # [place] # Baso # Seg Neutrophils % Seg Neuts % (Manual) Lymphocytes % (Manual) Monocytes % (Manual) Eosinophils % (Manual) Basophils % (Manual) Nucleated RBC % Seg Neutrophils # Seg Neutrophils # Man Lymphocytes # (Manual) Monocytes # (Manual) Eosinophils # (Manual) PT INR Fibrinogen dRVVT Confirm Interp Factor V Activity POC ABG pH POC ABG pCO2 POC ABG pO2 ABG pO2 ABG HCO3 ABG Base Excess ABG Hemoglobin Oxyhemoglobin Sodium Potassium Chloride Carbon Dioxide BUN Creatinine Glucose POC Glucose 114 H 141 H Lactic Acid Calcium Phosphorus Magnesium 2.70 H Direct Bilirubin AST ALT Alkaline Phosphatase Lactate Dehydrogenase Troponin T C-Reactive Protein Total Protein Albumin Prealbumin Triglycerides Cholesterol LDL Cholesterol Direct HDL Cholesterol Urine pH Urine WBC (Auto) Urine Creatinine Urine Total Protein Fluid Total Protein Vancomycin Trough Rheumatoid Factor Complement C4 Miscellaneous Test Crossmatch 09/21/16 09/21/16 09/21/16 07:45 07:45 10:01 WBC 13.8 H RBC 2.94 L Hgb 7.5 L Hct 23.5 L MCV MCH 26 L MCHC RDW 21.2 H Plt Count Lymph % (Auto) 6.9 L [place] % (Auto) 9.4 H Lymph # 0.9 L [place] # 1.3 H Baso # Seg Neutrophils % 83.2 H Seg Neuts % (Manual) Lymphocytes % (Manual) Monocytes % (Manual) Eosinophils % (Manual) Basophils % (Manual) Nucleated RBC % Seg Neutrophils # 11.5 H Seg Neutrophils # Man Lymphocytes # (Manual) Monocytes # (Manual) Eosinophils # (Manual) PT INR Fibrinogen dRVVT Confirm Interp Factor V Activity POC ABG pH 7.308 L POC ABG pCO2 31.9 L POC ABG pO2 148 H ABG pO2 ABG HCO3 ABG Base Excess ABG Hemoglobin Oxyhemoglobin Sodium 147 H Potassium Chloride 114.2 H Carbon Dioxide 15 L BUN 120 H Creatinine 3.9 H Glucose 156 H POC Glucose Lactic Acid Calcium 8.2 L Phosphorus Magnesium Direct Bilirubin AST ALT Alkaline Phosphatase Lactate Dehydrogenase Troponin T C-Reactive Protein Total Protein Albumin Prealbumin Triglycerides Cholesterol LDL Cholesterol Direct HDL Cholesterol Urine pH Urine WBC (Auto) Urine Creatinine Urine Total Protein Fluid Total Protein Vancomycin Trough Rheumatoid Factor Complement C4 Miscellaneous Test Crossmatch 09/21/16 09/21/16 09/21/16 12:00 12:03 13:00 WBC RBC Hgb Hct MCV MCH MCHC RDW Plt Count Lymph % (Auto) [place] % (Auto) Lymph # [place] # Baso # Seg Neutrophils % Seg Neuts % (Manual) Lymphocytes % (Manual) Monocytes % (Manual) Eosinophils % (Manual) Basophils % (Manual) Nucleated RBC % Seg Neutrophils # Seg Neutrophils # Man Lymphocytes # (Manual) Monocytes # (Manual) Eosinophils # (Manual) PT INR Fibrinogen dRVVT Confirm Interp Factor V Activity POC ABG pH POC ABG pCO2 POC ABG pO2 ABG pO2 ABG HCO3 ABG Base Excess ABG Hemoglobin Oxyhemoglobin Sodium Potassium Chloride Carbon Dioxide BUN Creatinine Glucose POC Glucose 163 H Lactic Acid Calcium Phosphorus Magnesium Direct Bilirubin AST ALT Alkaline Phosphatase Lactate Dehydrogenase Troponin T C-Reactive Protein Total Protein Albumin Prealbumin Triglycerides Cholesterol LDL Cholesterol Direct HDL Cholesterol Urine pH Urine WBC (Auto) Urine Creatinine 54.8 H Urine Total Protein Fluid Total Protein Vancomycin Trough 2.3 L Rheumatoid Factor Complement C4 Miscellaneous Test Crossmatch 09/21/16 09/21/16 09/22/16 16:51 23:17 06:27 WBC RBC Hgb Hct MCV MCH MCHC RDW Plt Count Lymph % (Auto) [place] % (Auto) Lymph # [place] # Baso # Seg Neutrophils % Seg Neuts % (Manual) Lymphocytes % (Manual) Monocytes % (Manual) Eosinophils % (Manual) Basophils % (Manual) Nucleated RBC % Seg Neutrophils # Seg Neutrophils # Man Lymphocytes # (Manual) Monocytes # (Manual) Eosinophils # (Manual) PT INR Fibrinogen dRVVT Confirm Interp Factor V Activity POC ABG pH POC ABG pCO2 POC ABG pO2 ABG pO2 ABG HCO3 ABG Base Excess ABG Hemoglobin Oxyhemoglobin Sodium Potassium Chloride Carbon Dioxide BUN Creatinine Glucose POC Glucose 206 H 114 H 115 H Lactic Acid Calcium Phosphorus Magnesium Direct Bilirubin AST ALT Alkaline Phosphatase Lactate Dehydrogenase Troponin T C-Reactive Protein Total Protein Albumin Prealbumin Triglycerides Cholesterol LDL Cholesterol Direct HDL Cholesterol Urine pH Urine WBC (Auto) Urine Creatinine Urine Total Protein Fluid Total Protein Vancomycin Trough Rheumatoid Factor Complement C4 Miscellaneous Test Crossmatch 09/22/16 09/22/16 09/22/16 07:50 07:50 12:00 WBC 17.8 H RBC 3.04 L Hgb 8.0 L Hct 24.7 L MCV MCH 26 L MCHC RDW 21.6 H Plt Count Lymph % (Auto) [place] % (Auto) Lymph # [place] # Baso # Seg Neutrophils % Seg Neuts % (Manual) Lymphocytes % (Manual) Monocytes % (Manual) Eosinophils % (Manual) Basophils % (Manual) Nucleated RBC % Seg Neutrophils # Seg Neutrophils # Man Lymphocytes # (Manual) Monocytes # (Manual) Eosinophils # (Manual) PT INR Fibrinogen dRVVT Confirm Interp Factor V Activity POC ABG pH POC ABG pCO2 POC ABG pO2 ABG pO2 ABG HCO3 ABG Base Excess ABG Hemoglobin Oxyhemoglobin Sodium 150 H Potassium Chloride 118.2 H Carbon Dioxide 14 L BUN 111 H Creatinine 3.7 H Glucose 157 H POC Glucose 183 H Lactic Acid Calcium Phosphorus Magnesium Direct Bilirubin AST ALT Alkaline Phosphatase Lactate Dehydrogenase Troponin T C-Reactive Protein Total Protein Albumin Prealbumin Triglycerides Cholesterol LDL Cholesterol Direct HDL Cholesterol Urine pH Urine WBC (Auto) Urine Creatinine Urine Total Protein Fluid Total Protein Vancomycin Trough Rheumatoid Factor Complement C4 Miscellaneous Test Crossmatch 09/22/16 09/22/16 09/23/16 17:29 23:10 05:00 WBC 19.2 H RBC 3.13 L Hgb 8.0 L Hct 25.2 L MCV MCH 26 L MCHC RDW 22.1 H Plt Count Lymph % (Auto) [place] % (Auto) Lymph # [place] # Baso # Seg Neutrophils % Seg Neuts % (Manual) 92.0 H Lymphocytes % (Manual) 3.0 L Monocytes % (Manual) Eosinophils % (Manual) Basophils % (Manual) Nucleated RBC % Seg Neutrophils # Seg Neutrophils # Man 17.7 H Lymphocytes # (Manual) 0.6 L Monocytes # (Manual) Eosinophils # (Manual) PT INR Fibrinogen dRVVT Confirm Interp Factor V Activity POC ABG pH POC ABG pCO2 POC ABG pO2 ABG pO2 ABG HCO3 ABG Base Excess ABG Hemoglobin Oxyhemoglobin Sodium Potassium Chloride Carbon Dioxide BUN Creatinine Glucose POC Glucose 197 H 169 H Lactic Acid Calcium Phosphorus Magnesium Direct Bilirubin AST ALT Alkaline Phosphatase Lactate Dehydrogenase Troponin T C-Reactive Protein Total Protein Albumin Prealbumin Triglycerides Cholesterol LDL Cholesterol Direct HDL Cholesterol Urine pH Urine WBC (Auto) Urine Creatinine Urine Total Protein Fluid Total Protein Vancomycin Trough Rheumatoid Factor Complement C4 Miscellaneous Test Crossmatch 09/23/16 09/23/16 09/23/16 05:00 05:00 05:10 WBC RBC Hgb Hct MCV MCH MCHC RDW Plt Count Lymph % (Auto) [place] % (Auto) Lymph # [place] # Baso # Seg Neutrophils % Seg Neuts % (Manual) Lymphocytes % (Manual) Monocytes % (Manual) Eosinophils % (Manual) Basophils % (Manual) Nucleated RBC % Seg Neutrophils # Seg Neutrophils # Man Lymphocytes # (Manual) Monocytes # (Manual) Eosinophils # (Manual) PT INR Fibrinogen dRVVT Confirm Interp Factor V Activity POC ABG pH POC ABG pCO2 POC ABG pO2 ABG pO2 ABG HCO3 ABG Base Excess ABG Hemoglobin Oxyhemoglobin Sodium 147 H Potassium 3.2 L Chloride 115.7 H Carbon Dioxide 13 L BUN 111 H Creatinine 3.8 H Glucose 194 H POC Glucose 188 H Lactic Acid Calcium 7.3 L D Phosphorus Magnesium Direct Bilirubin AST ALT Alkaline Phosphatase Lactate Dehydrogenase Troponin T C-Reactive Protein 3.20 H Total Protein Albumin Prealbumin Triglycerides Cholesterol LDL Cholesterol Direct HDL Cholesterol Urine pH Urine WBC (Auto) Urine Creatinine Urine Total Protein Fluid Total Protein Vancomycin Trough Rheumatoid Factor Complement C4 Miscellaneous Test Crossmatch 09/23/16 09/23/16 09/23/16 11:37 12:29 18:01 WBC RBC Hgb Hct MCV MCH MCHC RDW Plt Count Lymph % (Auto) [place] % (Auto) Lymph # [place] # Baso # Seg Neutrophils % Seg Neuts % (Manual) Lymphocytes % (Manual) Monocytes % (Manual) Eosinophils % (Manual) Basophils % (Manual) Nucleated RBC % Seg Neutrophils # Seg Neutrophils # Man Lymphocytes # (Manual) Monocytes # (Manual) Eosinophils # (Manual) PT INR Fibrinogen dRVVT Confirm Interp Factor V Activity POC ABG pH POC ABG pCO2 18.9 L POC ABG pO2 143 H ABG pO2 ABG HCO3 ABG Base Excess ABG Hemoglobin Oxyhemoglobin Sodium Potassium Chloride Carbon Dioxide BUN Creatinine Glucose POC Glucose 153 H 108 H Lactic Acid Calcium Phosphorus Magnesium Direct Bilirubin AST ALT Alkaline Phosphatase Lactate Dehydrogenase Troponin T C-Reactive Protein Total Protein Albumin Prealbumin Triglycerides Cholesterol LDL Cholesterol Direct HDL Cholesterol Urine pH Urine WBC (Auto) Urine Creatinine Urine Total Protein Fluid Total Protein Vancomycin Trough Rheumatoid Factor Complement C4 Miscellaneous Test Crossmatch 09/23/16 09/23/16 09/24/16 21:19 23:43 05:16 WBC RBC Hgb Hct MCV MCH MCHC RDW Plt Count Lymph % (Auto) [place] % (Auto) Lymph # [place] # Baso # Seg Neutrophils % Seg Neuts % (Manual) Lymphocytes % (Manual) Monocytes % (Manual) Eosinophils % (Manual) Basophils % (Manual) Nucleated RBC % Seg Neutrophils # Seg Neutrophils # Man Lymphocytes # (Manual) Monocytes # (Manual) Eosinophils # (Manual) PT INR Fibrinogen dRVVT Confirm Interp Factor V Activity POC ABG pH POC ABG pCO2 17.3 L POC ABG pO2 112 H ABG pO2 ABG HCO3 ABG Base Excess ABG Hemoglobin Oxyhemoglobin Sodium Potassium Chloride Carbon Dioxide BUN Creatinine Glucose POC Glucose 143 H 164 H Lactic Acid Calcium Phosphorus Magnesium Direct Bilirubin AST ALT Alkaline Phosphatase Lactate Dehydrogenase Troponin T C-Reactive Protein Total Protein Albumin Prealbumin Triglycerides Cholesterol LDL Cholesterol Direct HDL Cholesterol Urine pH Urine WBC (Auto) Urine Creatinine Urine Total Protein Fluid Total Protein Vancomycin Trough Rheumatoid Factor Complement C4 Miscellaneous Test Crossmatch 09/24/16 09/24/16 09/24/16 05:21 11:58 17:06 WBC RBC Hgb Hct MCV MCH MCHC RDW Plt Count Lymph % (Auto) [place] % (Auto) Lymph # [place] # Baso # Seg Neutrophils % Seg Neuts % (Manual) Lymphocytes % (Manual) Monocytes % (Manual) Eosinophils % (Manual) Basophils % (Manual) Nucleated RBC % Seg Neutrophils # Seg Neutrophils # Man Lymphocytes # (Manual) Monocytes # (Manual) Eosinophils # (Manual) PT INR Fibrinogen dRVVT Confirm Interp Factor V Activity POC ABG pH POC ABG pCO2 POC ABG pO2 ABG pO2 ABG HCO3 ABG Base Excess ABG Hemoglobin Oxyhemoglobin Sodium Potassium Chloride Carbon Dioxide 10 L BUN 103 H Creatinine 4.3 H Glucose 163 H POC Glucose 173 H 167 H Lactic Acid Calcium 6.5 L Phosphorus Magnesium Direct Bilirubin AST ALT Alkaline Phosphatase Lactate Dehydrogenase Troponin T C-Reactive Protein Total Protein Albumin Prealbumin Triglycerides Cholesterol LDL Cholesterol Direct HDL Cholesterol Urine pH Urine WBC (Auto) Urine Creatinine Urine Total Protein Fluid Total Protein Vancomycin Trough Rheumatoid Factor Complement C4 Miscellaneous Test Crossmatch 09/24/16 09/24/16 09/24/16 20:15 21:02 23:48 WBC RBC Hgb Hct MCV MCH MCHC RDW Plt Count Lymph % (Auto) [place] % (Auto) Lymph # [place] # Baso # Seg Neutrophils % Seg Neuts % (Manual) Lymphocytes % (Manual) Monocytes % (Manual) Eosinophils % (Manual) Basophils % (Manual) Nucleated RBC % Seg Neutrophils # Seg Neutrophils # Man Lymphocytes # (Manual) Monocytes # (Manual) Eosinophils # (Manual) PT INR Fibrinogen dRVVT Confirm Interp Factor V Activity POC ABG pH 7.288 L POC ABG pCO2 30.2 L 21.5 L POC ABG pO2 32 L 39 L ABG pO2 ABG HCO3 ABG Base Excess ABG Hemoglobin Oxyhemoglobin Sodium Potassium Chloride Carbon Dioxide BUN Creatinine Glucose POC Glucose 109 H Lactic Acid Calcium Phosphorus Magnesium Direct Bilirubin AST ALT Alkaline Phosphatase Lactate Dehydrogenase Troponin T C-Reactive Protein Total Protein Albumin Prealbumin Triglycerides Cholesterol LDL Cholesterol Direct HDL Cholesterol Urine pH Urine WBC (Auto) Urine Creatinine Urine Total Protein Fluid Total Protein Vancomycin Trough Rheumatoid Factor Complement C4 Miscellaneous Test Crossmatch 09/25/16 09/25/16 09/25/16 04:20 04:20 04:20 WBC RBC 2.58 L Hgb 7.0 L Hct 21.0 L MCV MCH 27 L MCHC RDW 23.8 H Plt Count Lymph % (Auto) [place] % (Auto) Lymph # [place] # Baso # Seg Neutrophils % Seg Neuts % (Manual) Lymphocytes % (Manual) 12.0 L Monocytes % (Manual) Eosinophils % (Manual) 7.0 H Basophils % (Manual) 2.0 H Nucleated RBC % Seg Neutrophils # Seg Neutrophils # Man Lymphocytes # (Manual) 0.9 L Monocytes # (Manual) Eosinophils # (Manual) 0.5 H PT INR Fibrinogen dRVVT Confirm Interp Factor V Activity POC ABG pH POC ABG pCO2 POC ABG pO2 ABG pO2 ABG HCO3 ABG Base Excess ABG Hemoglobin Oxyhemoglobin Sodium Potassium Chloride Carbon Dioxide 15 L BUN 72 H Creatinine 3.8 H Glucose POC Glucose Lactic Acid Calcium 6.0 L Phosphorus 4.60 H Magnesium 1.60 L Direct Bilirubin AST ALT Alkaline Phosphatase Lactate Dehydrogenase Troponin T C-Reactive Protein Total Protein Albumin Prealbumin Triglycerides Cholesterol LDL Cholesterol Direct HDL Cholesterol Urine pH Urine WBC (Auto) Urine Creatinine Urine Total Protein Fluid Total Protein Vancomycin Trough Rheumatoid Factor Complement C4 Miscellaneous Test Crossmatch 09/25/16 09/25/16 09/25/16 04:57 08:02 10:30 WBC RBC Hgb Hct MCV MCH MCHC RDW Plt Count Lymph % (Auto) [place] % (Auto) Lymph # [place] # Baso # Seg Neutrophils % Seg Neuts % (Manual) Lymphocytes % (Manual) Monocytes % (Manual) Eosinophils % (Manual) Basophils % (Manual) Nucleated RBC % Seg Neutrophils # Seg Neutrophils # Man Lymphocytes # (Manual) Monocytes # (Manual) Eosinophils # (Manual) PT INR Fibrinogen dRVVT Confirm Interp Factor V Activity POC ABG pH POC ABG pCO2 24.7 L POC ABG pO2 152 H ABG pO2 ABG HCO3 ABG Base Excess ABG Hemoglobin Oxyhemoglobin Sodium Potassium Chloride Carbon Dioxide BUN Creatinine Glucose POC Glucose 113 H Lactic Acid Calcium Phosphorus Magnesium Direct Bilirubin AST ALT Alkaline Phosphatase Lactate Dehydrogenase Troponin T C-Reactive Protein Total Protein Albumin Prealbumin Triglycerides Cholesterol LDL Cholesterol Direct HDL Cholesterol Urine pH Urine WBC (Auto) Urine Creatinine Urine Total Protein Fluid Total Protein Vancomycin Trough Rheumatoid Factor Complement C4 Miscellaneous Test Crossmatch See Detail 09/25/16 09/25/16 09/25/16 12:05 17:44 23:47 WBC RBC Hgb Hct MCV MCH MCHC RDW Plt Count Lymph % (Auto) [place] % (Auto) Lymph # [place] # Baso # Seg Neutrophils % Seg Neuts % (Manual) Lymphocytes % (Manual) Monocytes % (Manual) Eosinophils % (Manual) Basophils % (Manual) Nucleated RBC % Seg Neutrophils # Seg Neutrophils # Man Lymphocytes # (Manual) Monocytes # (Manual) Eosinophils # (Manual) PT INR Fibrinogen dRVVT Confirm Interp Factor V Activity POC ABG pH POC ABG pCO2 POC ABG pO2 ABG pO2 ABG HCO3 ABG Base Excess ABG Hemoglobin Oxyhemoglobin Sodium Potassium Chloride Carbon Dioxide BUN Creatinine Glucose POC Glucose 117 H 119 H 150 H Lactic Acid Calcium Phosphorus Magnesium Direct Bilirubin AST ALT Alkaline Phosphatase Lactate Dehydrogenase Troponin T C-Reactive Protein Total Protein Albumin Prealbumin Triglycerides Cholesterol LDL Cholesterol Direct HDL Cholesterol Urine pH Urine WBC (Auto) Urine Creatinine Urine Total Protein Fluid Total Protein Vancomycin Trough Rheumatoid Factor Complement C4 Miscellaneous Test Crossmatch 09/26/16 09/26/16 09/26/16 04:25 04:25 04:25 WBC RBC 2.65 L Hgb 7.4 L Hct 21.6 L MCV MCH MCHC RDW 22.5 H Plt Count Lymph % (Auto) [place] % (Auto) Lymph # [place] # Baso # Seg Neutrophils % Seg Neuts % (Manual) Lymphocytes % (Manual) 6.0 L Monocytes % (Manual) Eosinophils % (Manual) 11.0 H Basophils % (Manual) Nucleated RBC % Seg Neutrophils # Seg Neutrophils # Man Lymphocytes # (Manual) 0.4 L Monocytes # (Manual) Eosinophils # (Manual) 0.6 H PT INR Fibrinogen dRVVT Confirm Interp Factor V Activity POC ABG pH POC ABG pCO2 POC ABG pO2 ABG pO2 ABG HCO3 ABG Base Excess ABG Hemoglobin Oxyhemoglobin Sodium Potassium Chloride 97.0 L Carbon Dioxide 19 L BUN 43 H Creatinine 2.6 H Glucose 130 H POC Glucose Lactic Acid 4.40 H* Calcium 6.7 L Phosphorus Magnesium Direct Bilirubin AST ALT Alkaline Phosphatase Lactate Dehydrogenase Troponin T C-Reactive Protein Total Protein Albumin Prealbumin Triglycerides Cholesterol LDL Cholesterol Direct HDL Cholesterol Urine pH Urine WBC (Auto) Urine Creatinine Urine Total Protein Fluid Total Protein Vancomycin Trough Rheumatoid Factor Complement C4 Miscellaneous Test Crossmatch 09/26/16 09/26/16 09/26/16 05:20 11:44 12:12 WBC RBC Hgb Hct MCV MCH MCHC RDW Plt Count Lymph % (Auto) [place] % (Auto) Lymph # [place] # Baso # Seg Neutrophils % Seg Neuts % (Manual) Lymphocytes % (Manual) Monocytes % (Manual) Eosinophils % (Manual) Basophils % (Manual) Nucleated RBC % Seg Neutrophils # Seg Neutrophils # Man Lymphocytes # (Manual) Monocytes # (Manual) Eosinophils # (Manual) PT INR Fibrinogen dRVVT Confirm Interp Factor V Activity POC ABG pH POC ABG pCO2 27.0 L POC ABG pO2 69 L ABG pO2 ABG HCO3 ABG Base Excess ABG Hemoglobin Oxyhemoglobin Sodium Potassium Chloride Carbon Dioxide BUN Creatinine Glucose POC Glucose 121 H 128 H Lactic Acid Calcium Phosphorus Magnesium Direct Bilirubin AST ALT Alkaline Phosphatase Lactate Dehydrogenase Troponin T C-Reactive Protein Total Protein Albumin Prealbumin Triglycerides Cholesterol LDL Cholesterol Direct HDL Cholesterol Urine pH Urine WBC (Auto) Urine Creatinine Urine Total Protein Fluid Total Protein Vancomycin Trough Rheumatoid Factor Complement C4 Miscellaneous Test Crossmatch 09/26/16 09/26/16 09/27/16 18:31 23:40 08:20 WBC RBC Hgb Hct MCV MCH MCHC RDW Plt Count Lymph % (Auto) [place] % (Auto) Lymph # [place] # Baso # Seg Neutrophils % Seg Neuts % (Manual) Lymphocytes % (Manual) Monocytes % (Manual) Eosinophils % (Manual) Basophils % (Manual) Nucleated RBC % Seg Neutrophils # Seg Neutrophils # Man Lymphocytes # (Manual) Monocytes # (Manual) Eosinophils # (Manual) PT INR Fibrinogen dRVVT Confirm Interp Factor V Activity POC ABG pH POC ABG pCO2 POC ABG pO2 ABG pO2 ABG HCO3 ABG Base Excess ABG Hemoglobin Oxyhemoglobin Sodium Potassium Chloride Carbon Dioxide BUN Creatinine Glucose POC Glucose 120 H 133 H Lactic Acid 4.10 H* Calcium Phosphorus Magnesium Direct Bilirubin AST ALT Alkaline Phosphatase Lactate Dehydrogenase Troponin T C-Reactive Protein Total Protein Albumin Prealbumin Triglycerides Cholesterol LDL Cholesterol Direct HDL Cholesterol Urine pH Urine WBC (Auto) Urine Creatinine Urine Total Protein Fluid Total Protein Vancomycin Trough Rheumatoid Factor Complement C4 Miscellaneous Test Crossmatch 09/27/16 09/27/16 09/27/16 11:23 15:00 18:15 WBC RBC Hgb Hct MCV MCH MCHC RDW Plt Count Lymph % (Auto) [place] % (Auto) Lymph # [place] # Baso # Seg Neutrophils % Seg Neuts % (Manual) Lymphocytes % (Manual) Monocytes % (Manual) Eosinophils % (Manual) Basophils % (Manual) Nucleated RBC % Seg Neutrophils # Seg Neutrophils # Man Lymphocytes # (Manual) Monocytes # (Manual) Eosinophils # (Manual) PT INR Fibrinogen dRVVT Confirm Interp Factor V Activity POC ABG pH 7.459 H POC ABG pCO2 27.1 L POC ABG pO2 140 H ABG pO2 ABG HCO3 ABG Base Excess ABG Hemoglobin Oxyhemoglobin Sodium Potassium Chloride Carbon Dioxide BUN Creatinine Glucose POC Glucose 114 H 127 H Lactic Acid Calcium Phosphorus Magnesium Direct Bilirubin AST ALT Alkaline Phosphatase Lactate Dehydrogenase Troponin T C-Reactive Protein Total Protein Albumin Prealbumin Triglycerides Cholesterol LDL Cholesterol Direct HDL Cholesterol Urine pH Urine WBC (Auto) Urine Creatinine Urine Total Protein Fluid Total Protein Vancomycin Trough Rheumatoid Factor Complement C4 Miscellaneous Test Crossmatch 09/27/16 09/27/16 09/28/16 Unknown Unknown 03:45 WBC RBC 2.49 L Hgb 6.8 L Hct 20.7 L MCV MCH 27 L MCHC RDW 22.1 H Plt Count Lymph % (Auto) [place] % (Auto) Lymph # [place] # Baso # Seg Neutrophils % Seg Neuts % (Manual) 32.0 L Lymphocytes % (Manual) 12.0 L Monocytes % (Manual) 11.0 H Eosinophils % (Manual) 10.0 H Basophils % (Manual) Nucleated RBC % Seg Neutrophils # Seg Neutrophils # Man Lymphocytes # (Manual) 1.0 L Monocytes # (Manual) 0.9 H Eosinophils # (Manual) 0.8 H PT INR Fibrinogen dRVVT Confirm Interp Factor V Activity POC ABG pH POC ABG pCO2 POC ABG pO2 ABG pO2 ABG HCO3 ABG Base Excess ABG Hemoglobin Oxyhemoglobin Sodium 135 L 135 L Potassium 3.5 L Chloride 93.6 L 94.4 L Carbon Dioxide 17 L 21 L BUN 45 H 28 H Creatinine 3.3 H 2.5 H Glucose 106 H POC Glucose Lactic Acid Calcium 7.3 L 7.1 L Phosphorus Magnesium Direct Bilirubin AST ALT Alkaline Phosphatase Lactate Dehydrogenase Troponin T C-Reactive Protein Total Protein Albumin Prealbumin Triglycerides Cholesterol LDL Cholesterol Direct HDL Cholesterol Urine pH Urine WBC (Auto) Urine Creatinine Urine Total Protein Fluid Total Protein Vancomycin Trough Rheumatoid Factor Complement C4 Miscellaneous Test Crossmatch 09/28/16 09/28/16 09/28/16 03:45 07:25 11:58 WBC 13.3 H RBC 3.01 L Hgb 8.4 L Hct 25.0 L MCV MCH MCHC RDW 20.5 H Plt Count 128 L Lymph % (Auto) [place] % (Auto) Lymph # [place] # Baso # Seg Neutrophils % Seg Neuts % (Manual) Lymphocytes % (Manual) 7.0 L Monocytes % (Manual) Eosinophils % (Manual) 6.0 H Basophils % (Manual) Nucleated RBC % Seg Neutrophils # Seg Neutrophils # Man Lymphocytes # (Manual) 0.9 L Monocytes # (Manual) Eosinophils # (Manual) 0.8 H PT INR Fibrinogen dRVVT Confirm Interp Factor V Activity POC ABG pH POC ABG pCO2 POC ABG pO2 ABG pO2 ABG HCO3 ABG Base Excess ABG Hemoglobin Oxyhemoglobin Sodium Potassium Chloride Carbon Dioxide BUN Creatinine Glucose POC Glucose 121 H Lactic Acid 4.50 H* Calcium Phosphorus Magnesium Direct Bilirubin AST ALT Alkaline Phosphatase Lactate Dehydrogenase Troponin T C-Reactive Protein Total Protein Albumin Prealbumin Triglycerides Cholesterol LDL Cholesterol Direct HDL Cholesterol Urine pH Urine WBC (Auto) Urine Creatinine Urine Total Protein Fluid Total Protein Vancomycin Trough Rheumatoid Factor Complement C4 Miscellaneous Test Crossmatch 09/29/16 09/29/16 09/29/16 06:45 06:45 06:45 WBC 14.9 H RBC 2.74 L Hgb 7.6 L Hct 23.2 L MCV MCH MCHC RDW 20.5 H Plt Count 81 L Lymph % (Auto) [place] % (Auto) Lymph # [place] # Baso # Seg Neutrophils % Seg Neuts % (Manual) 81.0 H Lymphocytes % (Manual) 4.0 L Monocytes % (Manual) Eosinophils % (Manual) Basophils % (Manual) Nucleated RBC % Seg Neutrophils # Seg Neutrophils # Man 12.1 H Lymphocytes # (Manual) 0.6 L Monocytes # (Manual) Eosinophils # (Manual) PT INR Fibrinogen dRVVT Confirm Interp Factor V Activity POC ABG pH POC ABG pCO2 POC ABG pO2 ABG pO2 ABG HCO3 ABG Base Excess ABG Hemoglobin Oxyhemoglobin Sodium 133 L Potassium 3.4 L Chloride 92.5 L Carbon Dioxide 21 L BUN 33 H Creatinine 3.0 H Glucose POC Glucose Lactic Acid Calcium 6.6 L Phosphorus Magnesium 1.40 L Direct Bilirubin 0.9 H AST ALT Alkaline Phosphatase Lactate Dehydrogenase Troponin T C-Reactive Protein Total Protein 4.3 L Albumin 1.3 L Prealbumin Triglycerides Cholesterol LDL Cholesterol Direct HDL Cholesterol Urine pH Urine WBC (Auto) Urine Creatinine Urine Total Protein Fluid Total Protein Vancomycin Trough Rheumatoid Factor Complement C4 Miscellaneous Test Crossmatch 09/29/16 09/29/16 09/30/16 17:52 20:12 00:07 WBC RBC Hgb Hct MCV MCH MCHC RDW Plt Count Lymph % (Auto) [place] % (Auto) Lymph # [place] # Baso # Seg Neutrophils % Seg Neuts % (Manual) Lymphocytes % (Manual) Monocytes % (Manual) Eosinophils % (Manual) Basophils % (Manual) Nucleated RBC % Seg Neutrophils # Seg Neutrophils # Man Lymphocytes # (Manual) Monocytes # (Manual) Eosinophils # (Manual) PT INR Fibrinogen dRVVT Confirm Interp Factor V Activity POC ABG pH POC ABG pCO2 POC ABG pO2 ABG pO2 ABG HCO3 ABG Base Excess ABG Hemoglobin Oxyhemoglobin Sodium Potassium Chloride Carbon Dioxide BUN Creatinine Glucose POC Glucose 50 L 51 L Lactic Acid Calcium Phosphorus Magnesium Direct Bilirubin AST ALT Alkaline Phosphatase Lactate Dehydrogenase Troponin T 0.204 H* C-Reactive Protein Total Protein Albumin Prealbumin Triglycerides Cholesterol 31 L LDL Cholesterol Direct 4 L HDL Cholesterol 3 L Urine pH Urine WBC (Auto) Urine Creatinine Urine Total Protein Fluid Total Protein Vancomycin Trough Rheumatoid Factor Complement C4 Miscellaneous Test Crossmatch 09/30/16 09/30/16 09/30/16 01:30 05:15 06:10 WBC RBC Hgb Hct MCV MCH MCHC RDW Plt Count Lymph % (Auto) [place] % (Auto) Lymph # [place] # Baso # Seg Neutrophils % Seg Neuts % (Manual) Lymphocytes % (Manual) Monocytes % (Manual) Eosinophils % (Manual) Basophils % (Manual) Nucleated RBC % Seg Neutrophils # Seg Neutrophils # Man Lymphocytes # (Manual) Monocytes # (Manual) Eosinophils # (Manual) PT INR Fibrinogen dRVVT Confirm Interp Factor V Activity POC ABG pH POC ABG pCO2 POC ABG pO2 ABG pO2 ABG HCO3 ABG Base Excess ABG Hemoglobin Oxyhemoglobin Sodium 133 L Potassium 3.2 L Chloride 93.2 L Carbon Dioxide 19 L BUN 36 H Creatinine 3.2 H Glucose 104 H POC Glucose 167 H 146 H Lactic Acid Calcium 6.4 L Phosphorus Magnesium 1.60 L Direct Bilirubin AST ALT Alkaline Phosphatase Lactate Dehydrogenase Troponin T C-Reactive Protein Total Protein Albumin Prealbumin Triglycerides Cholesterol LDL Cholesterol Direct HDL Cholesterol Urine pH Urine WBC (Auto) Urine Creatinine Urine Total Protein Fluid Total Protein Vancomycin Trough Rheumatoid Factor Complement C4 Miscellaneous Test Crossmatch 09/30/16 09/30/16 09/30/16 11:26 13:39 18:38 WBC RBC Hgb Hct MCV MCH MCHC RDW Plt Count Lymph % (Auto) [place] % (Auto) Lymph # [place] # Baso # Seg Neutrophils % Seg Neuts % (Manual) Lymphocytes % (Manual) Monocytes % (Manual) Eosinophils % (Manual) Basophils % (Manual) Nucleated RBC % Seg Neutrophils # Seg Neutrophils # Man Lymphocytes # (Manual) Monocytes # (Manual) Eosinophils # (Manual) PT INR Fibrinogen dRVVT Confirm Interp Factor V Activity POC ABG pH 7.479 H POC ABG pCO2 29.8 L POC ABG pO2 117 H ABG pO2 ABG HCO3 ABG Base Excess ABG Hemoglobin Oxyhemoglobin Sodium Potassium Chloride Carbon Dioxide BUN Creatinine Glucose POC Glucose 140 H 122 H Lactic Acid Calcium Phosphorus Magnesium Direct Bilirubin AST ALT Alkaline Phosphatase Lactate Dehydrogenase Troponin T C-Reactive Protein Total Protein Albumin Prealbumin Triglycerides Cholesterol LDL Cholesterol Direct HDL Cholesterol Urine pH Urine WBC (Auto) Urine Creatinine Urine Total Protein Fluid Total Protein Vancomycin Trough Rheumatoid Factor Complement C4 Miscellaneous Test Crossmatch 10/01/16 10/01/16 10/01/16 06:00 06:00 12:37 WBC 12.6 H RBC 2.75 L Hgb 7.3 L Hct 23.3 L MCV MCH 27 L MCHC RDW 20.6 H Plt Count 72 L Lymph % (Auto) [place] % (Auto) Lymph # [place] # Baso # Seg Neutrophils % Seg Neuts % (Manual) 31.0 L Lymphocytes % (Manual) 8.0 L Monocytes % (Manual) Eosinophils % (Manual) Basophils % (Manual) Nucleated RBC % 3.0 H Seg Neutrophils # Seg Neutrophils # Man Lymphocytes # (Manual) 1.0 L Monocytes # (Manual) Eosinophils # (Manual) PT INR Fibrinogen dRVVT Confirm Interp Factor V Activity POC ABG pH POC ABG pCO2 POC ABG pO2 ABG pO2 ABG HCO3 ABG Base Excess ABG Hemoglobin Oxyhemoglobin Sodium 127 L Potassium Chloride 86.8 L Carbon Dioxide 20 L BUN 42 H Creatinine 3.5 H Glucose POC Glucose 65 L Lactic Acid Calcium 7.0 L Phosphorus Magnesium Direct Bilirubin AST ALT Alkaline Phosphatase Lactate Dehydrogenase Troponin T C-Reactive Protein Total Protein Albumin Prealbumin Triglycerides Cholesterol LDL Cholesterol Direct HDL Cholesterol Urine pH Urine WBC (Auto) Urine Creatinine Urine Total Protein Fluid Total Protein Vancomycin Trough Rheumatoid Factor Complement C4 Miscellaneous Test Crossmatch 10/01/16 10/01/16 10/02/16 17:39 23:32 00:59 WBC RBC Hgb Hct MCV MCH MCHC RDW Plt Count Lymph % (Auto) [place] % (Auto) Lymph # [place] # Baso # Seg Neutrophils % Seg Neuts % (Manual) Lymphocytes % (Manual) Monocytes % (Manual) Eosinophils % (Manual) Basophils % (Manual) Nucleated RBC % Seg Neutrophils # Seg Neutrophils # Man Lymphocytes # (Manual) Monocytes # (Manual) Eosinophils # (Manual) PT INR Fibrinogen dRVVT Confirm Interp Factor V Activity POC ABG pH POC ABG pCO2 POC ABG pO2 ABG pO2 ABG HCO3 ABG Base Excess ABG Hemoglobin Oxyhemoglobin Sodium Potassium Chloride Carbon Dioxide BUN Creatinine Glucose POC Glucose 107 H 52 L 145 H Lactic Acid Calcium Phosphorus Magnesium Direct Bilirubin AST ALT Alkaline Phosphatase Lactate Dehydrogenase Troponin T C-Reactive Protein Total Protein Albumin Prealbumin Triglycerides Cholesterol LDL Cholesterol Direct HDL Cholesterol Urine pH Urine WBC (Auto) Urine Creatinine Urine Total Protein Fluid Total Protein Vancomycin Trough Rheumatoid Factor Complement C4 Miscellaneous Test Crossmatch 10/02/16 10/02/16 10/02/16 10:30 10:50 10:50 WBC 14.7 H RBC 2.76 L Hgb 7.4 L Hct 23.6 L MCV MCH 27 L MCHC RDW 20.2 H Plt Count 79 L Lymph % (Auto) [place] % (Auto) Lymph # [place] # Baso # Seg Neutrophils % Seg Neuts % (Manual) 86.0 H Lymphocytes % (Manual) 6.0 L Monocytes % (Manual) Eosinophils % (Manual) Basophils % (Manual) Nucleated RBC % Seg Neutrophils # Seg Neutrophils # Man 12.6 H Lymphocytes # (Manual) 0.9 L Monocytes # (Manual) Eosinophils # (Manual) PT INR Fibrinogen dRVVT Confirm Interp Factor V Activity POC ABG pH 7.486 H POC ABG pCO2 30.1 L POC ABG pO2 108 H ABG pO2 ABG HCO3 ABG Base Excess ABG Hemoglobin Oxyhemoglobin Sodium 131 L Potassium 3.4 L Chloride 89.9 L Carbon Dioxide BUN 26 H Creatinine 2.6 H Glucose POC Glucose Lactic Acid Calcium 7.0 L Phosphorus Magnesium Direct Bilirubin AST ALT Alkaline Phosphatase Lactate Dehydrogenase Troponin T C-Reactive Protein Total Protein Albumin Prealbumin Triglycerides Cholesterol LDL Cholesterol Direct HDL Cholesterol Urine pH Urine WBC (Auto) Urine Creatinine Urine Total Protein Fluid Total Protein Vancomycin Trough Rheumatoid Factor Complement C4 Miscellaneous Test Crossmatch 10/02/16 10/03/16 10/03/16 23:45 00:45 05:10 WBC 12.9 H RBC 2.77 L Hgb 7.6 L Hct 23.7 L MCV MCH 27 L MCHC RDW 19.7 H Plt Count 89 L Lymph % (Auto) [place] % (Auto) Lymph # [place] # Baso # Seg Neutrophils % Seg Neuts % (Manual) Lymphocytes % (Manual) 8.0 L Monocytes % (Manual) Eosinophils % (Manual) Basophils % (Manual) Nucleated RBC % Seg Neutrophils # 11.9 H Seg Neutrophils # Man Lymphocytes # (Manual) 1.0 L Monocytes # (Manual) Eosinophils # (Manual) PT INR Fibrinogen dRVVT Confirm Interp Factor V Activity POC ABG pH POC ABG pCO2 POC ABG pO2 ABG pO2 ABG HCO3 ABG Base Excess ABG Hemoglobin Oxyhemoglobin Sodium Potassium Chloride Carbon Dioxide BUN Creatinine Glucose POC Glucose 55 L 199 H Lactic Acid Calcium Phosphorus Magnesium Direct Bilirubin AST ALT Alkaline Phosphatase Lactate Dehydrogenase Troponin T C-Reactive Protein Total Protein Albumin Prealbumin Triglycerides Cholesterol LDL Cholesterol Direct HDL Cholesterol Urine pH Urine WBC (Auto) Urine Creatinine Urine Total Protein Fluid Total Protein Vancomycin Trough Rheumatoid Factor Complement C4 Miscellaneous Test Crossmatch 10/03/16 10/03/16 10/03/16 05:10 12:14 13:18 WBC RBC Hgb Hct MCV MCH MCHC RDW Plt Count Lymph % (Auto) [place] % (Auto) Lymph # [place] # Baso # Seg Neutrophils % Seg Neuts % (Manual) Lymphocytes % (Manual) Monocytes % (Manual) Eosinophils % (Manual) Basophils % (Manual) Nucleated RBC % Seg Neutrophils # Seg Neutrophils # Man Lymphocytes # (Manual) Monocytes # (Manual) Eosinophils # (Manual) PT INR Fibrinogen dRVVT Confirm Interp Factor V Activity POC ABG pH POC ABG pCO2 POC ABG pO2 ABG pO2 ABG HCO3 ABG Base Excess ABG Hemoglobin Oxyhemoglobin Sodium 129 L Potassium 3.3 L Chloride 88.8 L Carbon Dioxide 20 L BUN 29 H Creatinine 2.8 H Glucose POC Glucose 68 L 127 H Lactic Acid Calcium 7.2 L Phosphorus Magnesium Direct Bilirubin AST ALT Alkaline Phosphatase Lactate Dehydrogenase Troponin T C-Reactive Protein Total Protein Albumin Prealbumin Triglycerides Cholesterol LDL Cholesterol Direct HDL Cholesterol Urine pH Urine WBC (Auto) Urine Creatinine Urine Total Protein Fluid Total Protein Vancomycin Trough Rheumatoid Factor Complement C4 Miscellaneous Test Crossmatch 10/03/16 10/03/16 10/03/16 14:42 18:21 19:09 WBC RBC Hgb Hct MCV MCH MCHC RDW Plt Count Lymph % (Auto) [place] % (Auto) Lymph # [place] # Baso # Seg Neutrophils % Seg Neuts % (Manual) Lymphocytes % (Manual) Monocytes % (Manual) Eosinophils % (Manual) Basophils % (Manual) Nucleated RBC % Seg Neutrophils # Seg Neutrophils # Man Lymphocytes # (Manual) Monocytes # (Manual) Eosinophils # (Manual) PT INR Fibrinogen dRVVT Confirm Interp Factor V Activity POC ABG pH 7.499 H POC ABG pCO2 28.4 L POC ABG pO2 44 L ABG pO2 ABG HCO3 ABG Base Excess ABG Hemoglobin Oxyhemoglobin Sodium Potassium Chloride Carbon Dioxide BUN Creatinine Glucose POC Glucose 64 L 205 H Lactic Acid Calcium Phosphorus Magnesium Direct Bilirubin AST ALT Alkaline Phosphatase Lactate Dehydrogenase Troponin T C-Reactive Protein Total Protein Albumin Prealbumin Triglycerides Cholesterol LDL Cholesterol Direct HDL Cholesterol Urine pH Urine WBC (Auto) Urine Creatinine Urine Total Protein Fluid Total Protein Vancomycin Trough Rheumatoid Factor Complement C4 Miscellaneous Test Crossmatch 10/03/16 10/04/16 10/04/16 23:33 04:18 06:30 WBC RBC 2.54 L Hgb 7.1 L Hct 21.7 L MCV MCH MCHC RDW 19.5 H Plt Count 76 L Lymph % (Auto) [place] % (Auto) Lymph # [place] # Baso # Seg Neutrophils % Seg Neuts % (Manual) 88.0 H Lymphocytes % (Manual) 6.0 L Monocytes % (Manual) Eosinophils % (Manual) Basophils % (Manual) Nucleated RBC % Seg Neutrophils # Seg Neutrophils # Man 8.8 H Lymphocytes # (Manual) 0.6 L Monocytes # (Manual) Eosinophils # (Manual) PT INR Fibrinogen dRVVT Confirm Interp Factor V Activity POC ABG pH 7.461 H POC ABG pCO2 33.6 L POC ABG pO2 211 H ABG pO2 ABG HCO3 ABG Base Excess ABG Hemoglobin Oxyhemoglobin Sodium Potassium Chloride Carbon Dioxide BUN Creatinine Glucose POC Glucose 136 H Lactic Acid Calcium Phosphorus Magnesium Direct Bilirubin AST ALT Alkaline Phosphatase Lactate Dehydrogenase Troponin T C-Reactive Protein Total Protein Albumin Prealbumin Triglycerides Cholesterol LDL Cholesterol Direct HDL Cholesterol Urine pH Urine WBC (Auto) Urine Creatinine Urine Total Protein Fluid Total Protein Vancomycin Trough Rheumatoid Factor Complement C4 Miscellaneous Test Crossmatch 10/04/16 10/04/16 10/04/16 06:30 11:45 17:54 WBC RBC Hgb Hct MCV MCH MCHC RDW Plt Count Lymph % (Auto) [place] % (Auto) Lymph # [place] # Baso # Seg Neutrophils % Seg Neuts % (Manual) Lymphocytes % (Manual) Monocytes % (Manual) Eosinophils % (Manual) Basophils % (Manual) Nucleated RBC % Seg Neutrophils # Seg Neutrophils # Man Lymphocytes # (Manual) Monocytes # (Manual) Eosinophils # (Manual) PT INR Fibrinogen dRVVT Confirm Interp Factor V Activity POC ABG pH POC ABG pCO2 POC ABG pO2 ABG pO2 ABG HCO3 ABG Base Excess ABG Hemoglobin Oxyhemoglobin Sodium 128 L Potassium Chloride 87.4 L Carbon Dioxide 20 L BUN 34 H Creatinine 2.9 H Glucose 127 H POC Glucose 158 H 160 H Lactic Acid Calcium 7.4 L Phosphorus Magnesium Direct Bilirubin AST ALT Alkaline Phosphatase Lactate Dehydrogenase Troponin T C-Reactive Protein Total Protein Albumin Prealbumin Triglycerides Cholesterol LDL Cholesterol Direct HDL Cholesterol Urine pH Urine WBC (Auto) Urine Creatinine Urine Total Protein Fluid Total Protein Vancomycin Trough Rheumatoid Factor Complement C4 Miscellaneous Test Crossmatch 10/04/16 10/05/16 10/05/16 23:25 04:30 05:00 WBC RBC 2.64 L Hgb 7.5 L Hct 22.6 L MCV MCH MCHC RDW 19.3 H Plt Count 80 L Lymph % (Auto) [place] % (Auto) Lymph # [place] # Baso # Seg Neutrophils % Seg Neuts % (Manual) Lymphocytes % (Manual) 12.0 L Monocytes % (Manual) Eosinophils % (Manual) Basophils % (Manual) Nucleated RBC % Seg Neutrophils # Seg Neutrophils # Man Lymphocytes # (Manual) Monocytes # (Manual) Eosinophils # (Manual) PT INR Fibrinogen dRVVT Confirm Interp Factor V Activity POC ABG pH 7.475 H POC ABG pCO2 33.3 L POC ABG pO2 140 H ABG pO2 ABG HCO3 ABG Base Excess ABG Hemoglobin Oxyhemoglobin Sodium Potassium Chloride Carbon Dioxide BUN Creatinine Glucose POC Glucose 141 H Lactic Acid Calcium Phosphorus Magnesium Direct Bilirubin AST ALT Alkaline Phosphatase Lactate Dehydrogenase Troponin T C-Reactive Protein Total Protein Albumin Prealbumin Triglycerides Cholesterol LDL Cholesterol Direct HDL Cholesterol Urine pH Urine WBC (Auto) Urine Creatinine Urine Total Protein Fluid Total Protein Vancomycin Trough Rheumatoid Factor Complement C4 Miscellaneous Test Crossmatch 10/05/16 10/05/16 10/05/16 05:00 05:09 12:58 WBC RBC Hgb Hct MCV MCH MCHC RDW Plt Count Lymph % (Auto) [place] % (Auto) Lymph # [place] # Baso # Seg Neutrophils % Seg Neuts % (Manual) Lymphocytes % (Manual) Monocytes % (Manual) Eosinophils % (Manual) Basophils % (Manual) Nucleated RBC % Seg Neutrophils # Seg Neutrophils # Man Lymphocytes # (Manual) Monocytes # (Manual) Eosinophils # (Manual) PT INR Fibrinogen dRVVT Confirm Interp Factor V Activity POC ABG pH POC ABG pCO2 POC ABG pO2 ABG pO2 ABG HCO3 ABG Base Excess ABG Hemoglobin Oxyhemoglobin Sodium 131 L Potassium Chloride 94.0 L Carbon Dioxide 20 L BUN 22 H Creatinine 2.0 H Glucose 123 H POC Glucose 166 H 179 H Lactic Acid Calcium 7.7 L Phosphorus 2.20 L D Magnesium Direct Bilirubin AST ALT Alkaline Phosphatase Lactate Dehydrogenase Troponin T C-Reactive Protein Total Protein Albumin Prealbumin Triglycerides Cholesterol LDL Cholesterol Direct HDL Cholesterol Urine pH Urine WBC (Auto) Urine Creatinine Urine Total Protein Fluid Total Protein Vancomycin Trough Rheumatoid Factor Complement C4 Miscellaneous Test Crossmatch 10/05/16 10/05/16 10/05/16 15:50 18:53 23:12 WBC RBC Hgb Hct MCV MCH MCHC RDW Plt Count Lymph % (Auto) [place] % (Auto) Lymph # [place] # Baso # Seg Neutrophils % Seg Neuts % (Manual) Lymphocytes % (Manual) Monocytes % (Manual) Eosinophils % (Manual) Basophils % (Manual) Nucleated RBC % Seg Neutrophils # Seg Neutrophils # Man Lymphocytes # (Manual) Monocytes # (Manual) Eosinophils # (Manual) PT INR Fibrinogen dRVVT Confirm Interp Factor V Activity POC ABG pH POC ABG pCO2 POC ABG pO2 ABG pO2 ABG HCO3 ABG Base Excess ABG Hemoglobin Oxyhemoglobin Sodium Potassium Chloride Carbon Dioxide BUN Creatinine Glucose POC Glucose 150 H 164 H Lactic Acid Calcium Phosphorus Magnesium Direct Bilirubin AST ALT Alkaline Phosphatase Lactate Dehydrogenase Troponin T C-Reactive Protein Total Protein Albumin Prealbumin Triglycerides Cholesterol LDL Cholesterol Direct HDL Cholesterol Urine pH Urine WBC (Auto) Urine Creatinine Urine Total Protein Fluid Total Protein Vancomycin Trough Rheumatoid Factor Complement C4 Miscellaneous Test Crossmatch See Detail 10/06/16 10/06/16 10/06/16 03:50 03:50 04:53 WBC RBC 3.00 L Hgb 8.6 L Hct 25.8 L MCV MCH MCHC RDW 17.9 H Plt Count 65 L Lymph % (Auto) [place] % (Auto) Lymph # [place] # Baso # Seg Neutrophils % Seg Neuts % (Manual) 30.0 L Lymphocytes % (Manual) 5.0 L Monocytes % (Manual) Eosinophils % (Manual) Basophils % (Manual) Nucleated RBC % Seg Neutrophils # Seg Neutrophils # Man Lymphocytes # (Manual) 0.4 L Monocytes # (Manual) Eosinophils # (Manual) PT INR Fibrinogen dRVVT Confirm Interp Factor V Activity POC ABG pH 7.310 L POC ABG pCO2 49.0 H POC ABG pO2 ABG pO2 ABG HCO3 ABG Base Excess ABG Hemoglobin Oxyhemoglobin Sodium 133 L Potassium Chloride 95.9 L Carbon Dioxide BUN 26 H Creatinine 2.0 H Glucose 116 H POC Glucose Lactic Acid Calcium 7.8 L Phosphorus Magnesium Direct Bilirubin AST ALT Alkaline Phosphatase Lactate Dehydrogenase Troponin T C-Reactive Protein Total Protein Albumin Prealbumin Triglycerides Cholesterol LDL Cholesterol Direct HDL Cholesterol Urine pH Urine WBC (Auto) Urine Creatinine Urine Total Protein Fluid Total Protein Vancomycin Trough Rheumatoid Factor Complement C4 Miscellaneous Test Crossmatch 10/06/16 10/06/16 10/06/16 05:23 11:52 18:34 WBC RBC Hgb Hct MCV MCH MCHC RDW Plt Count Lymph % (Auto) [place] % (Auto) Lymph # [place] # Baso # Seg Neutrophils % Seg Neuts % (Manual) Lymphocytes % (Manual) Monocytes % (Manual) Eosinophils % (Manual) Basophils % (Manual) Nucleated RBC % Seg Neutrophils # Seg Neutrophils # Man Lymphocytes # (Manual) Monocytes # (Manual) Eosinophils # (Manual) PT INR Fibrinogen dRVVT Confirm Interp Factor V Activity POC ABG pH POC ABG pCO2 POC ABG pO2 ABG pO2 ABG HCO3 ABG Base Excess ABG Hemoglobin Oxyhemoglobin Sodium Potassium Chloride Carbon Dioxide BUN Creatinine Glucose POC Glucose 126 H 116 H 129 H Lactic Acid Calcium Phosphorus Magnesium Direct Bilirubin AST ALT Alkaline Phosphatase Lactate Dehydrogenase Troponin T C-Reactive Protein Total Protein Albumin Prealbumin Triglycerides Cholesterol LDL Cholesterol Direct HDL Cholesterol Urine pH Urine WBC (Auto) Urine Creatinine Urine Total Protein Fluid Total Protein Vancomycin Trough Rheumatoid Factor Complement C4 Miscellaneous Test Crossmatch 10/07/16 10/07/16 10/07/16 03:45 05:00 10:00 WBC 17.0 H RBC 2.68 L Hgb 7.3 L Hct 25.3 L MCV MCH 27 L MCHC 29 L RDW 19.6 H Plt Count 74 L Lymph % (Auto) [place] % (Auto) Lymph # [place] # Baso # Seg Neutrophils % Seg Neuts % (Manual) Lymphocytes % (Manual) 12.0 L Monocytes % (Manual) Eosinophils % (Manual) Basophils % (Manual) Nucleated RBC % 4.0 H Seg Neutrophils # Seg Neutrophils # Man 10.7 H Lymphocytes # (Manual) Monocytes # (Manual) Eosinophils # (Manual) PT INR Fibrinogen dRVVT Confirm Interp Factor V Activity POC ABG pH POC ABG pCO2 POC ABG pO2 ABG pO2 ABG HCO3 ABG Base Excess ABG Hemoglobin Oxyhemoglobin Sodium 130 L Potassium 3.2 L Chloride 93.9 L Carbon Dioxide 20 L BUN 44 H Creatinine 2.7 H Glucose 129 H POC Glucose Lactic Acid Calcium 7.4 L Phosphorus Magnesium Direct Bilirubin AST ALT 6 L Alkaline Phosphatase 195 H Lactate Dehydrogenase Troponin T C-Reactive Protein Total Protein 4.9 L Albumin 1.0 L Prealbumin Triglycerides Cholesterol LDL Cholesterol Direct HDL Cholesterol Urine pH Urine WBC (Auto) Urine Creatinine Urine Total Protein Fluid Total Protein Vancomycin Trough Rheumatoid Factor Complement C4 Miscellaneous Test Flexitest 1 H Crossmatch 10/07/16 10/07/16 10/07/16 10:00 11:24 18:10 WBC RBC Hgb Hct MCV MCH MCHC RDW Plt Count Lymph % (Auto) [place] % (Auto) Lymph # [place] # Baso # Seg Neutrophils % Seg Neuts % (Manual) Lymphocytes % (Manual) Monocytes % (Manual) Eosinophils % (Manual) Basophils % (Manual) Nucleated RBC % Seg Neutrophils # Seg Neutrophils # Man Lymphocytes # (Manual) Monocytes # (Manual) Eosinophils # (Manual) PT INR Fibrinogen dRVVT Confirm Interp Factor V Activity POC ABG pH POC ABG pCO2 POC ABG pO2 ABG pO2 ABG HCO3 ABG Base Excess ABG Hemoglobin Oxyhemoglobin Sodium Potassium Chloride Carbon Dioxide BUN Creatinine Glucose POC Glucose 116 H 130 H Lactic Acid Calcium Phosphorus Magnesium Direct Bilirubin AST ALT Alkaline Phosphatase Lactate Dehydrogenase Troponin T C-Reactive Protein 19.40 H Total Protein Albumin Prealbumin Triglycerides Cholesterol LDL Cholesterol Direct HDL Cholesterol Urine pH Urine WBC (Auto) Urine Creatinine Urine Total Protein Fluid Total Protein Vancomycin Trough Rheumatoid Factor Complement C4 Miscellaneous Test Crossmatch 10/07/16 10/08/16 10/08/16 18:30 00:00 04:00 WBC RBC Hgb Hct MCV MCH MCHC RDW Plt Count Lymph % (Auto) [place] % (Auto) Lymph # [place] # Baso # Seg Neutrophils % Seg Neuts % (Manual) Lymphocytes % (Manual) Monocytes % (Manual) Eosinophils % (Manual) Basophils % (Manual) Nucleated RBC % Seg Neutrophils # Seg Neutrophils # Man Lymphocytes # (Manual) Monocytes # (Manual) Eosinophils # (Manual) PT INR Fibrinogen dRVVT Confirm Interp Factor V Activity POC ABG pH POC ABG pCO2 POC ABG pO2 ABG pO2 ABG HCO3 ABG Base Excess ABG Hemoglobin Oxyhemoglobin Sodium 132 L Potassium 3.3 L Chloride 93.6 L Carbon Dioxide 17 L BUN 59 H Creatinine 2.7 H Glucose 121 H POC Glucose 122 H Lactic Acid Calcium 7.6 L Phosphorus Magnesium Direct Bilirubin AST ALT Alkaline Phosphatase Lactate Dehydrogenase Troponin T C-Reactive Protein Total Protein Albumin Prealbumin Triglycerides Cholesterol LDL Cholesterol Direct HDL Cholesterol Urine pH Urine WBC (Auto) > 182.0 H Urine Creatinine Urine Total Protein Fluid Total Protein Vancomycin Trough Rheumatoid Factor Complement C4 Miscellaneous Test Crossmatch 10/08/16 10/08/16 10/08/16 04:30 05:30 11:51 WBC RBC 5.15 H Hgb 14.4 H D Hct 44.5 H D MCV MCH MCHC RDW 19.5 H Plt Count 56 L Lymph % (Auto) [place] % (Auto) Lymph # [place] # Baso # Seg Neutrophils % Seg Neuts % (Manual) 24.0 L Lymphocytes % (Manual) 8.0 L Monocytes % (Manual) Eosinophils % (Manual) Basophils % (Manual) Nucleated RBC % 9.0 H Seg Neutrophils # Seg Neutrophils # Man Lymphocytes # (Manual) 0.7 L Monocytes # (Manual) Eosinophils # (Manual) PT INR Fibrinogen dRVVT Confirm Interp Factor V Activity POC ABG pH POC ABG pCO2 POC ABG pO2 ABG pO2 ABG HCO3 ABG Base Excess ABG Hemoglobin Oxyhemoglobin Sodium Potassium Chloride Carbon Dioxide BUN Creatinine Glucose POC Glucose 125 H 150 H Lactic Acid Calcium Phosphorus Magnesium Direct Bilirubin AST ALT Alkaline Phosphatase Lactate Dehydrogenase Troponin T C-Reactive Protein Total Protein Albumin Prealbumin Triglycerides Cholesterol LDL Cholesterol Direct HDL Cholesterol Urine pH Urine WBC (Auto) Urine Creatinine Urine Total Protein Fluid Total Protein Vancomycin Trough Rheumatoid Factor Complement C4 Miscellaneous Test Crossmatch 10/08/16 10/08/16 10/08/16 12:49 17:07 19:30 WBC RBC Hgb 7.1 L D Hct 22.4 L D MCV MCH MCHC RDW Plt Count Lymph % (Auto) [place] % (Auto) Lymph # [place] # Baso # Seg Neutrophils % Seg Neuts % (Manual) Lymphocytes % (Manual) Monocytes % (Manual) Eosinophils % (Manual) Basophils % (Manual) Nucleated RBC % Seg Neutrophils # Seg Neutrophils # Man Lymphocytes # (Manual) Monocytes # (Manual) Eosinophils # (Manual) PT INR Fibrinogen dRVVT Confirm Interp Factor V Activity POC ABG pH POC ABG pCO2 28.2 L POC ABG pO2 111 H ABG pO2 ABG HCO3 ABG Base Excess ABG Hemoglobin Oxyhemoglobin Sodium Potassium Chloride Carbon Dioxide BUN Creatinine Glucose POC Glucose 145 H Lactic Acid Calcium Phosphorus Magnesium Direct Bilirubin AST ALT Alkaline Phosphatase Lactate Dehydrogenase Troponin T C-Reactive Protein Total Protein Albumin Prealbumin Triglycerides Cholesterol LDL Cholesterol Direct HDL Cholesterol Urine pH Urine WBC (Auto) Urine Creatinine Urine Total Protein Fluid Total Protein Vancomycin Trough Rheumatoid Factor Complement C4 Miscellaneous Test Crossmatch 10/08/16 10/09/16 10/09/16 19:30 03:45 03:45 WBC 12.6 H RBC 2.36 L Hgb 6.7 L Hct 21.1 L MCV MCH MCHC RDW 19.5 H Plt Count 75 L Lymph % (Auto) [place] % (Auto) Lymph # [place] # Baso # Seg Neutrophils % Seg Neuts % (Manual) Lymphocytes % (Manual) Monocytes % (Manual) 10.0 H Eosinophils % (Manual) Basophils % (Manual) Nucleated RBC % 3.0 H Seg Neutrophils # Seg Neutrophils # Man Lymphocytes # (Manual) Monocytes # (Manual) 1.3 H Eosinophils # (Manual) PT 18.0 H INR 1.41 H Fibrinogen dRVVT Confirm Interp Factor V Activity POC ABG pH POC ABG pCO2 POC ABG pO2 ABG pO2 ABG HCO3 ABG Base Excess ABG Hemoglobin Oxyhemoglobin Sodium 135 L Potassium Chloride Carbon Dioxide 17 L BUN 81 H Creatinine 3.2 H Glucose 109 H POC Glucose Lactic Acid Calcium 7.4 L Phosphorus 4.60 H D Magnesium Direct Bilirubin AST ALT Alkaline Phosphatase Lactate Dehydrogenase Troponin T C-Reactive Protein Total Protein Albumin Prealbumin Triglycerides Cholesterol LDL Cholesterol Direct HDL Cholesterol Urine pH Urine WBC (Auto) Urine Creatinine Urine Total Protein Fluid Total Protein Vancomycin Trough Rheumatoid Factor Complement C4 Miscellaneous Test Crossmatch 10/09/16 10/09/16 10/09/16 03:45 05:14 07:20 WBC RBC Hgb Hct MCV MCH MCHC RDW Plt Count Lymph % (Auto) [place] % (Auto) Lymph # [place] # Baso # Seg Neutrophils % Seg Neuts % (Manual) Lymphocytes % (Manual) Monocytes % (Manual) Eosinophils % (Manual) Basophils % (Manual) Nucleated RBC % Seg Neutrophils # Seg Neutrophils # Man Lymphocytes # (Manual) Monocytes # (Manual) Eosinophils # (Manual) PT 19.0 H INR 1.51 H Fibrinogen dRVVT Confirm Interp Factor V Activity POC ABG pH POC ABG pCO2 POC ABG pO2 ABG pO2 ABG HCO3 ABG Base Excess ABG Hemoglobin Oxyhemoglobin Sodium Potassium Chloride Carbon Dioxide BUN Creatinine Glucose POC Glucose 151 H Lactic Acid Calcium Phosphorus Magnesium Direct Bilirubin AST ALT Alkaline Phosphatase Lactate Dehydrogenase Troponin T C-Reactive Protein Total Protein Albumin Prealbumin Triglycerides Cholesterol LDL Cholesterol Direct HDL Cholesterol Urine pH Urine WBC (Auto) Urine Creatinine Urine Total Protein Fluid Total Protein Vancomycin Trough Rheumatoid Factor Complement C4 Miscellaneous Test Crossmatch See Detail 10/09/16 10/09/16 10/09/16 11:46 16:20 16:43 WBC RBC Hgb 7.2 L Hct 22.2 L MCV MCH MCHC RDW Plt Count Lymph % (Auto) [place] % (Auto) Lymph # [place] # Baso # Seg Neutrophils % Seg Neuts % (Manual) Lymphocytes % (Manual) Monocytes % (Manual) Eosinophils % (Manual) Basophils % (Manual) Nucleated RBC % Seg Neutrophils # Seg Neutrophils # Man Lymphocytes # (Manual) Monocytes # (Manual) Eosinophils # (Manual) PT INR Fibrinogen dRVVT Confirm Interp Factor V Activity POC ABG pH POC ABG pCO2 POC ABG pO2 ABG pO2 ABG HCO3 ABG Base Excess ABG Hemoglobin Oxyhemoglobin Sodium Potassium Chloride Carbon Dioxide BUN Creatinine Glucose POC Glucose 133 H 141 H Lactic Acid Calcium Phosphorus Magnesium Direct Bilirubin AST ALT Alkaline Phosphatase Lactate Dehydrogenase Troponin T C-Reactive Protein Total Protein Albumin Prealbumin Triglycerides Cholesterol LDL Cholesterol Direct HDL Cholesterol Urine pH Urine WBC (Auto) Urine Creatinine Urine Total Protein Fluid Total Protein Vancomycin Trough Rheumatoid Factor Complement C4 Miscellaneous Test Crossmatch 10/10/16 10/10/16 10/10/16 05:00 05:00 11:19 WBC 18.5 H RBC 2.19 L Hgb 6.4 L Hct 19.6 L* MCV MCH MCHC RDW 19.3 H Plt Count 93 L Lymph % (Auto) [place] % (Auto) Lymph # [place] # Baso # Seg Neutrophils % Seg Neuts % (Manual) Lymphocytes % (Manual) 10.0 L Monocytes % (Manual) Eosinophils % (Manual) Basophils % (Manual) Nucleated RBC % 4.0 H Seg Neutrophils # Seg Neutrophils # Man 11.3 H Lymphocytes # (Manual) Monocytes # (Manual) Eosinophils # (Manual) PT INR Fibrinogen dRVVT Confirm Interp Factor V Activity POC ABG pH POC ABG pCO2 POC ABG pO2 ABG pO2 ABG HCO3 ABG Base Excess ABG Hemoglobin Oxyhemoglobin Sodium Potassium 5.7 H D Chloride Carbon Dioxide 16 L BUN 94 H Creatinine 3.1 H Glucose 131 H POC Glucose 153 H Lactic Acid Calcium 8.2 L Phosphorus 5.10 H Magnesium 2.40 H Direct Bilirubin 0.3 H AST ALT < 5 L Alkaline Phosphatase 319 H Lactate Dehydrogenase Troponin T C-Reactive Protein Total Protein 5.1 L Albumin 1.0 L Prealbumin Triglycerides Cholesterol LDL Cholesterol Direct HDL Cholesterol Urine pH Urine WBC (Auto) Urine Creatinine Urine Total Protein Fluid Total Protein Vancomycin Trough Rheumatoid Factor Complement C4 Miscellaneous Test Crossmatch 10/10/16 10/10/16 10/11/16 17:50 23:30 04:15 WBC RBC Hgb Hct MCV MCH MCHC RDW Plt Count Lymph % (Auto) [place] % (Auto) Lymph # [place] # Baso # Seg Neutrophils % Seg Neuts % (Manual) Lymphocytes % (Manual) Monocytes % (Manual) Eosinophils % (Manual) Basophils % (Manual) Nucleated RBC % Seg Neutrophils # Seg Neutrophils # Man Lymphocytes # (Manual) Monocytes # (Manual) Eosinophils # (Manual) PT INR Fibrinogen dRVVT Confirm Interp Factor V Activity POC ABG pH POC ABG pCO2 POC ABG pO2 ABG pO2 ABG HCO3 ABG Base Excess ABG Hemoglobin Oxyhemoglobin Sodium Potassium Chloride 96.4 L Carbon Dioxide 21 L BUN 57 H Creatinine 2.1 H Glucose 151 H POC Glucose 146 H 141 H Lactic Acid Calcium 8.3 L Phosphorus Magnesium Direct Bilirubin AST ALT Alkaline Phosphatase Lactate Dehydrogenase Troponin T C-Reactive Protein Total Protein Albumin Prealbumin Triglycerides Cholesterol LDL Cholesterol Direct HDL Cholesterol Urine pH Urine WBC (Auto) Urine Creatinine Urine Total Protein Fluid Total Protein Vancomycin Trough Rheumatoid Factor Complement C4 Miscellaneous Test Crossmatch 10/11/16 10/11/16 10/11/16 04:15 04:15 05:30 WBC 28.3 H RBC 3.12 L Hgb 9.3 L Hct 28.7 L D MCV MCH MCHC RDW 17.7 H Plt Count 128 L Lymph % (Auto) [place] % (Auto) Lymph # [place] # Baso # Seg Neutrophils % Seg Neuts % (Manual) Lymphocytes % (Manual) Monocytes % (Manual) Eosinophils % (Manual) Basophils % (Manual) Nucleated RBC % Seg Neutrophils # Seg Neutrophils # Man Lymphocytes # (Manual) Monocytes # (Manual) Eosinophils # (Manual) PT INR Fibrinogen dRVVT Confirm Interp Factor V Activity POC ABG pH POC ABG pCO2 POC ABG pO2 ABG pO2 ABG HCO3 ABG Base Excess ABG Hemoglobin Oxyhemoglobin Sodium Potassium Chloride Carbon Dioxide BUN Creatinine Glucose POC Glucose 167 H Lactic Acid Calcium Phosphorus Magnesium Direct Bilirubin AST ALT Alkaline Phosphatase Lactate Dehydrogenase Troponin T C-Reactive Protein 15.80 H Total Protein Albumin Prealbumin Triglycerides Cholesterol LDL Cholesterol Direct HDL Cholesterol Urine pH Urine WBC (Auto) Urine Creatinine Urine Total Protein Fluid Total Protein Vancomycin Trough Rheumatoid Factor Complement C4 Miscellaneous Test Crossmatch 10/11/16 10/11/16 10/11/16 11:40 15:49 23:57 WBC RBC Hgb Hct MCV MCH MCHC RDW Plt Count Lymph % (Auto) [place] % (Auto) Lymph # [place] # Baso # Seg Neutrophils % Seg Neuts % (Manual) Lymphocytes % (Manual) Monocytes % (Manual) Eosinophils % (Manual) Basophils % (Manual) Nucleated RBC % Seg Neutrophils # Seg Neutrophils # Man Lymphocytes # (Manual) Monocytes # (Manual) Eosinophils # (Manual) PT INR Fibrinogen dRVVT Confirm Interp Factor V Activity POC ABG pH POC ABG pCO2 POC ABG pO2 ABG pO2 ABG HCO3 ABG Base Excess ABG Hemoglobin Oxyhemoglobin Sodium Potassium Chloride Carbon Dioxide BUN Creatinine Glucose POC Glucose 139 H 168 H 161 H Lactic Acid Calcium Phosphorus Magnesium Direct Bilirubin AST ALT Alkaline Phosphatase Lactate Dehydrogenase Troponin T C-Reactive Protein Total Protein Albumin Prealbumin Triglycerides Cholesterol LDL Cholesterol Direct HDL Cholesterol Urine pH Urine WBC (Auto) Urine Creatinine Urine Total Protein Fluid Total Protein Vancomycin Trough Rheumatoid Factor Complement C4 Miscellaneous Test Crossmatch 10/12/16 10/12/16 10/12/16 04:40 04:40 05:44 WBC 22.5 H RBC 2.88 L Hgb 8.8 L Hct 26.8 L MCV MCH MCHC RDW 17.8 H Plt Count Lymph % (Auto) [place] % (Auto) Lymph # [place] # Baso # Seg Neutrophils % Seg Neuts % (Manual) Lymphocytes % (Manual) Monocytes % (Manual) Eosinophils % (Manual) Basophils % (Manual) Nucleated RBC % Seg Neutrophils # Seg Neutrophils # Man Lymphocytes # (Manual) Monocytes # (Manual) Eosinophils # (Manual) PT INR Fibrinogen dRVVT Confirm Interp Factor V Activity POC ABG pH POC ABG pCO2 POC ABG pO2 ABG pO2 ABG HCO3 ABG Base Excess ABG Hemoglobin Oxyhemoglobin Sodium 134 L Potassium Chloride 93.0 L Carbon Dioxide BUN 74 H Creatinine 2.5 H Glucose 137 H POC Glucose 158 H Lactic Acid Calcium 8.2 L Phosphorus Magnesium Direct Bilirubin AST ALT Alkaline Phosphatase Lactate Dehydrogenase Troponin T C-Reactive Protein Total Protein Albumin Prealbumin Triglycerides Cholesterol LDL Cholesterol Direct HDL Cholesterol Urine pH Urine WBC (Auto) Urine Creatinine Urine Total Protein Fluid Total Protein Vancomycin Trough Rheumatoid Factor Complement C4 Miscellaneous Test Crossmatch 10/12/16 10/12/16 10/12/16 12:27 18:18 23:46 WBC RBC Hgb Hct MCV MCH MCHC RDW Plt Count Lymph % (Auto) [place] % (Auto) Lymph # [place] # Baso # Seg Neutrophils % Seg Neuts % (Manual) Lymphocytes % (Manual) Monocytes % (Manual) Eosinophils % (Manual) Basophils % (Manual) Nucleated RBC % Seg Neutrophils # Seg Neutrophils # Man Lymphocytes # (Manual) Monocytes # (Manual) Eosinophils # (Manual) PT INR Fibrinogen dRVVT Confirm Interp Factor V Activity POC ABG pH POC ABG pCO2 POC ABG pO2 ABG pO2 ABG HCO3 ABG Base Excess ABG Hemoglobin Oxyhemoglobin Sodium Potassium Chloride Carbon Dioxide BUN Creatinine Glucose POC Glucose 153 H 140 H 150 H Lactic Acid Calcium Phosphorus Magnesium Direct Bilirubin AST ALT Alkaline Phosphatase Lactate Dehydrogenase Troponin T C-Reactive Protein Total Protein Albumin Prealbumin Triglycerides Cholesterol LDL Cholesterol Direct HDL Cholesterol Urine pH Urine WBC (Auto) Urine Creatinine Urine Total Protein Fluid Total Protein Vancomycin Trough Rheumatoid Factor Complement C4 Miscellaneous Test Crossmatch 10/13/16 10/13/16 10/13/16 06:22 09:20 12:29 WBC RBC Hgb Hct MCV MCH MCHC RDW Plt Count Lymph % (Auto) [place] % (Auto) Lymph # [place] # Baso # Seg Neutrophils % Seg Neuts % (Manual) Lymphocytes % (Manual) Monocytes % (Manual) Eosinophils % (Manual) Basophils % (Manual) Nucleated RBC % Seg Neutrophils # Seg Neutrophils # Man Lymphocytes # (Manual) Monocytes # (Manual) Eosinophils # (Manual) PT INR Fibrinogen dRVVT Confirm Interp Factor V Activity POC ABG pH POC ABG pCO2 POC ABG pO2 ABG pO2 ABG HCO3 ABG Base Excess ABG Hemoglobin Oxyhemoglobin Sodium Potassium Chloride Carbon Dioxide BUN Creatinine Glucose POC Glucose 165 H 193 H Lactic Acid Calcium Phosphorus Magnesium Direct Bilirubin AST ALT Alkaline Phosphatase Lactate Dehydrogenase Troponin T C-Reactive Protein Total Protein Albumin Prealbumin Triglycerides Cholesterol LDL Cholesterol Direct HDL Cholesterol Urine pH Urine WBC (Auto) Urine Creatinine Urine Total Protein Fluid Total Protein Vancomycin Trough Rheumatoid Factor Complement C4 Miscellaneous Test Flexitest 1 H Crossmatch 10/13/16 10/13/16 10/13/16 18:09 Unknown Unknown WBC 23.4 H RBC 2.83 L Hgb 8.7 L Hct 26.1 L MCV MCH MCHC RDW 18.1 H Plt Count Lymph % (Auto) [place] % (Auto) Lymph # [place] # Baso # Seg Neutrophils % Seg Neuts % (Manual) Lymphocytes % (Manual) Monocytes % (Manual) Eosinophils % (Manual) Basophils % (Manual) Nucleated RBC % Seg Neutrophils # Seg Neutrophils # Man Lymphocytes # (Manual) Monocytes # (Manual) Eosinophils # (Manual) PT INR Fibrinogen dRVVT Confirm Interp Factor V Activity POC ABG pH POC ABG pCO2 POC ABG pO2 ABG pO2 ABG HCO3 ABG Base Excess ABG Hemoglobin Oxyhemoglobin Sodium Potassium Chloride 95.8 L Carbon Dioxide BUN 82 H Creatinine 2.6 H Glucose 152 H POC Glucose 166 H Lactic Acid Calcium Phosphorus Magnesium Direct Bilirubin AST ALT Alkaline Phosphatase Lactate Dehydrogenase Troponin T C-Reactive Protein Total Protein Albumin Prealbumin Triglycerides Cholesterol LDL Cholesterol Direct HDL Cholesterol Urine pH Urine WBC (Auto) Urine Creatinine Urine Total Protein Fluid Total Protein Vancomycin Trough Rheumatoid Factor Complement C4 Miscellaneous Test Crossmatch 10/14/16 10/14/16 10/14/16 05:38 06:35 08:10 WBC 20.7 H RBC 2.81 L Hgb 8.4 L Hct 27.2 L MCV MCH MCHC RDW 19.4 H Plt Count Lymph % (Auto) [place] % (Auto) Lymph # [place] # Baso # Seg Neutrophils % Seg Neuts % (Manual) Lymphocytes % (Manual) Monocytes % (Manual) Eosinophils % (Manual) Basophils % (Manual) Nucleated RBC % Seg Neutrophils # Seg Neutrophils # Man Lymphocytes # (Manual) Monocytes # (Manual) Eosinophils # (Manual) PT INR Fibrinogen dRVVT Confirm Interp Factor V Activity POC ABG pH POC ABG pCO2 POC ABG pO2 ABG pO2 ABG HCO3 ABG Base Excess ABG Hemoglobin Oxyhemoglobin Sodium Potassium Chloride Carbon Dioxide BUN 58 H Creatinine 1.9 H Glucose 169 H POC Glucose 195 H Lactic Acid Calcium Phosphorus Magnesium Direct Bilirubin AST ALT Alkaline Phosphatase Lactate Dehydrogenase Troponin T C-Reactive Protein Total Protein Albumin Prealbumin Triglycerides Cholesterol LDL Cholesterol Direct HDL Cholesterol Urine pH Urine WBC (Auto) Urine Creatinine Urine Total Protein Fluid Total Protein Vancomycin Trough Rheumatoid Factor Complement C4 Miscellaneous Test Crossmatch 10/14/16 10/14/16 10/14/16 11:44 17:13 23:28 WBC RBC Hgb Hct MCV MCH MCHC RDW Plt Count Lymph % (Auto) [place] % (Auto) Lymph # [place] # Baso # Seg Neutrophils % Seg Neuts % (Manual) Lymphocytes % (Manual) Monocytes % (Manual) Eosinophils % (Manual) Basophils % (Manual) Nucleated RBC % Seg Neutrophils # Seg Neutrophils # Man Lymphocytes # (Manual) Monocytes # (Manual) Eosinophils # (Manual) PT INR Fibrinogen dRVVT Confirm Interp Factor V Activity POC ABG pH POC ABG pCO2 POC ABG pO2 ABG pO2 ABG HCO3 ABG Base Excess ABG Hemoglobin Oxyhemoglobin Sodium Potassium Chloride Carbon Dioxide BUN Creatinine Glucose POC Glucose 174 H 121 H 151 H Lactic Acid Calcium Phosphorus Magnesium Direct Bilirubin AST ALT Alkaline Phosphatase Lactate Dehydrogenase Troponin T C-Reactive Protein Total Protein Albumin Prealbumin Triglycerides Cholesterol LDL Cholesterol Direct HDL Cholesterol Urine pH Urine WBC (Auto) Urine Creatinine Urine Total Protein Fluid Total Protein Vancomycin Trough Rheumatoid Factor Complement C4 Miscellaneous Test Crossmatch 10/15/16 10/15/16 10/15/16 05:06 12:26 17:48 WBC RBC Hgb Hct MCV MCH MCHC RDW Plt Count Lymph % (Auto) [place] % (Auto) Lymph # [place] # Baso # Seg Neutrophils % Seg Neuts % (Manual) Lymphocytes % (Manual) Monocytes % (Manual) Eosinophils % (Manual) Basophils % (Manual) Nucleated RBC % Seg Neutrophils # Seg Neutrophils # Man Lymphocytes # (Manual) Monocytes # (Manual) Eosinophils # (Manual) PT INR Fibrinogen dRVVT Confirm Interp Factor V Activity POC ABG pH POC ABG pCO2 POC ABG pO2 ABG pO2 ABG HCO3 ABG Base Excess ABG Hemoglobin Oxyhemoglobin Sodium Potassium Chloride Carbon Dioxide BUN Creatinine Glucose POC Glucose 151 H 149 H 153 H Lactic Acid Calcium Phosphorus Magnesium Direct Bilirubin AST ALT Alkaline Phosphatase Lactate Dehydrogenase Troponin T C-Reactive Protein Total Protein Albumin Prealbumin Triglycerides Cholesterol LDL Cholesterol Direct HDL Cholesterol Urine pH Urine WBC (Auto) Urine Creatinine Urine Total Protein Fluid Total Protein Vancomycin Trough Rheumatoid Factor Complement C4 Miscellaneous Test Crossmatch 10/15/16 10/15/16 10/16/16 Unknown Unknown 00:02 WBC 23.4 H RBC 2.78 L Hgb 8.5 L Hct 25.7 L MCV MCH MCHC RDW 18.7 H Plt Count Lymph % (Auto) [place] % (Auto) Lymph # [place] # Baso # Seg Neutrophils % Seg Neuts % (Manual) Lymphocytes % (Manual) Monocytes % (Manual) Eosinophils % (Manual) Basophils % (Manual) Nucleated RBC % Seg Neutrophils # Seg Neutrophils # Man Lymphocytes # (Manual) Monocytes # (Manual) Eosinophils # (Manual) PT INR Fibrinogen dRVVT Confirm Interp Factor V Activity POC ABG pH POC ABG pCO2 POC ABG pO2 ABG pO2 ABG HCO3 ABG Base Excess ABG Hemoglobin Oxyhemoglobin Sodium Potassium Chloride Carbon Dioxide BUN 73 H Creatinine 2.3 H Glucose 120 H POC Glucose 137 H Lactic Acid Calcium Phosphorus Magnesium Direct Bilirubin AST ALT Alkaline Phosphatase Lactate Dehydrogenase Troponin T C-Reactive Protein Total Protein Albumin Prealbumin Triglycerides Cholesterol LDL Cholesterol Direct HDL Cholesterol Urine pH Urine WBC (Auto) Urine Creatinine Urine Total Protein Fluid Total Protein Vancomycin Trough Rheumatoid Factor Complement C4 Miscellaneous Test Crossmatch 10/16/16 10/16/16 10/16/16 05:44 06:25 06:25 WBC 22.5 H RBC 2.76 L Hgb 8.3 L Hct 25.2 L MCV MCH MCHC RDW 18.3 H Plt Count Lymph % (Auto) [place] % (Auto) Lymph # [place] # Baso # Seg Neutrophils % Seg Neuts % (Manual) Lymphocytes % (Manual) Monocytes % (Manual) Eosinophils % (Manual) Basophils % (Manual) Nucleated RBC % Seg Neutrophils # Seg Neutrophils # Man Lymphocytes # (Manual) Monocytes # (Manual) Eosinophils # (Manual) PT INR Fibrinogen dRVVT Confirm Interp Factor V Activity POC ABG pH POC ABG pCO2 POC ABG pO2 ABG pO2 ABG HCO3 ABG Base Excess ABG Hemoglobin Oxyhemoglobin Sodium Potassium Chloride Carbon Dioxide BUN 92 H Creatinine 3.0 H Glucose 138 H POC Glucose 110 H Lactic Acid Calcium Phosphorus Magnesium Direct Bilirubin AST ALT Alkaline Phosphatase Lactate Dehydrogenase Troponin T C-Reactive Protein Total Protein Albumin Prealbumin Triglycerides Cholesterol LDL Cholesterol Direct HDL Cholesterol Urine pH Urine WBC (Auto) Urine Creatinine Urine Total Protein Fluid Total Protein Vancomycin Trough Rheumatoid Factor Complement C4 Miscellaneous Test Crossmatch 10/16/16 10/16/16 10/16/16 11:27 11:48 17:36 WBC RBC Hgb Hct MCV MCH MCHC RDW Plt Count Lymph % (Auto) [place] % (Auto) Lymph # [place] # Baso # Seg Neutrophils % Seg Neuts % (Manual) Lymphocytes % (Manual) Monocytes % (Manual) Eosinophils % (Manual) Basophils % (Manual) Nucleated RBC % Seg Neutrophils # Seg Neutrophils # Man Lymphocytes # (Manual) Monocytes # (Manual) Eosinophils # (Manual) PT INR Fibrinogen dRVVT Confirm Interp Factor V Activity POC ABG pH 7.582 H POC ABG pCO2 27.4 L POC ABG pO2 110 H ABG pO2 ABG HCO3 ABG Base Excess ABG Hemoglobin Oxyhemoglobin Sodium Potassium Chloride Carbon Dioxide BUN Creatinine Glucose POC Glucose 121 H 133 H Lactic Acid Calcium Phosphorus Magnesium Direct Bilirubin AST ALT Alkaline Phosphatase Lactate Dehydrogenase Troponin T C-Reactive Protein Total Protein Albumin Prealbumin Triglycerides Cholesterol LDL Cholesterol Direct HDL Cholesterol Urine pH Urine WBC (Auto) Urine Creatinine Urine Total Protein Fluid Total Protein Vancomycin Trough Rheumatoid Factor Complement C4 Miscellaneous Test Crossmatch 10/16/16 10/17/16 10/17/16 20:48 04:24 04:24 WBC 21.4 H RBC 2.72 L Hgb 8.0 L Hct 25.2 L MCV MCH MCHC RDW 18.0 H Plt Count Lymph % (Auto) [place] % (Auto) Lymph # [place] # Baso # Seg Neutrophils % Seg Neuts % (Manual) Lymphocytes % (Manual) Monocytes % (Manual) Eosinophils % (Manual) Basophils % (Manual) Nucleated RBC % Seg Neutrophils # Seg Neutrophils # Man Lymphocytes # (Manual) Monocytes # (Manual) Eosinophils # (Manual) PT INR Fibrinogen dRVVT Confirm Interp Factor V Activity POC ABG pH 7.561 H POC ABG pCO2 24.4 L POC ABG pO2 77 L ABG pO2 ABG HCO3 ABG Base Excess ABG Hemoglobin Oxyhemoglobin Sodium 148 H Potassium Chloride Carbon Dioxide BUN 104 H Creatinine 3.0 H Glucose 149 H POC Glucose Lactic Acid Calcium Phosphorus Magnesium Direct Bilirubin AST ALT Alkaline Phosphatase 138 H Lactate Dehydrogenase Troponin T C-Reactive Protein Total Protein 6.2 L Albumin 1.5 L Prealbumin Triglycerides Cholesterol LDL Cholesterol Direct HDL Cholesterol Urine pH Urine WBC (Auto) Urine Creatinine Urine Total Protein Fluid Total Protein Vancomycin Trough Rheumatoid Factor Complement C4 Miscellaneous Test Crossmatch 10/17/16 10/17/16 10/17/16 06:02 12:17 17:14 WBC RBC Hgb Hct MCV MCH MCHC RDW Plt Count Lymph % (Auto) [place] % (Auto) Lymph # [place] # Baso # Seg Neutrophils % Seg Neuts % (Manual) Lymphocytes % (Manual) Monocytes % (Manual) Eosinophils % (Manual) Basophils % (Manual) Nucleated RBC % Seg Neutrophils # Seg Neutrophils # Man Lymphocytes # (Manual) Monocytes # (Manual) Eosinophils # (Manual) PT INR Fibrinogen dRVVT Confirm Interp Factor V Activity POC ABG pH POC ABG pCO2 POC ABG pO2 ABG pO2 ABG HCO3 ABG Base Excess ABG Hemoglobin Oxyhemoglobin Sodium Potassium Chloride Carbon Dioxide BUN Creatinine Glucose POC Glucose 170 H 167 H 126 H Lactic Acid Calcium Phosphorus Magnesium Direct Bilirubin AST ALT Alkaline Phosphatase Lactate Dehydrogenase Troponin T C-Reactive Protein Total Protein Albumin Prealbumin Triglycerides Cholesterol LDL Cholesterol Direct HDL Cholesterol Urine pH Urine WBC (Auto) Urine Creatinine Urine Total Protein Fluid Total Protein Vancomycin Trough Rheumatoid Factor Complement C4 Miscellaneous Test Crossmatch 10/17/16 10/18/16 10/18/16 23:17 04:00 04:00 WBC 20.7 H RBC 2.47 L Hgb 7.4 L Hct 22.9 L MCV MCH MCHC RDW 17.5 H Plt Count Lymph % (Auto) [place] % (Auto) Lymph # [place] # Baso # Seg Neutrophils % Seg Neuts % (Manual) Lymphocytes % (Manual) Monocytes % (Manual) Eosinophils % (Manual) Basophils % (Manual) Nucleated RBC % Seg Neutrophils # Seg Neutrophils # Man Lymphocytes # (Manual) Monocytes # (Manual) Eosinophils # (Manual) PT INR Fibrinogen dRVVT Confirm Interp Factor V Activity POC ABG pH POC ABG pCO2 POC ABG pO2 ABG pO2 ABG HCO3 ABG Base Excess ABG Hemoglobin Oxyhemoglobin Sodium 149 H Potassium Chloride 107.9 H Carbon Dioxide 20 L BUN 117 H Creatinine 3.2 H Glucose 119 H POC Glucose 121 H Lactic Acid Calcium Phosphorus Magnesium Direct Bilirubin AST ALT Alkaline Phosphatase Lactate Dehydrogenase Troponin T C-Reactive Protein Total Protein Albumin Prealbumin Triglycerides Cholesterol LDL Cholesterol Direct HDL Cholesterol Urine pH Urine WBC (Auto) Urine Creatinine Urine Total Protein Fluid Total Protein Vancomycin Trough Rheumatoid Factor Complement C4 Miscellaneous Test Crossmatch 10/18/16 10/18/16 10/18/16 05:23 10:46 17:30 WBC RBC Hgb Hct MCV MCH MCHC RDW Plt Count Lymph % (Auto) [place] % (Auto) Lymph # [place] # Baso # Seg Neutrophils % Seg Neuts % (Manual) Lymphocytes % (Manual) Monocytes % (Manual) Eosinophils % (Manual) Basophils % (Manual) Nucleated RBC % Seg Neutrophils # Seg Neutrophils # Man Lymphocytes # (Manual) Monocytes # (Manual) Eosinophils # (Manual) PT INR Fibrinogen dRVVT Confirm Interp Factor V Activity POC ABG pH POC ABG pCO2 POC ABG pO2 ABG pO2 ABG HCO3 ABG Base Excess ABG Hemoglobin Oxyhemoglobin Sodium Potassium Chloride Carbon Dioxide BUN Creatinine Glucose POC Glucose 119 H 155 H 124 H Lactic Acid Calcium Phosphorus Magnesium Direct Bilirubin AST ALT Alkaline Phosphatase Lactate Dehydrogenase Troponin T C-Reactive Protein Total Protein Albumin Prealbumin Triglycerides Cholesterol LDL Cholesterol Direct HDL Cholesterol Urine pH Urine WBC (Auto) Urine Creatinine Urine Total Protein Fluid Total Protein Vancomycin Trough Rheumatoid Factor Complement C4 Miscellaneous Test Crossmatch 10/19/16 10/19/16 10/19/16 04:00 04:00 05:25 WBC 17.4 H RBC 2.54 L Hgb 7.7 L Hct 23.6 L MCV MCH MCHC RDW 17.3 H Plt Count Lymph % (Auto) [place] % (Auto) Lymph # [place] # Baso # Seg Neutrophils % Seg Neuts % (Manual) Lymphocytes % (Manual) Monocytes % (Manual) Eosinophils % (Manual) Basophils % (Manual) Nucleated RBC % Seg Neutrophils # Seg Neutrophils # Man Lymphocytes # (Manual) Monocytes # (Manual) Eosinophils # (Manual) PT INR Fibrinogen dRVVT Confirm Interp Factor V Activity POC ABG pH POC ABG pCO2 POC ABG pO2 ABG pO2 ABG HCO3 ABG Base Excess ABG Hemoglobin Oxyhemoglobin Sodium Potassium Chloride Carbon Dioxide BUN 72 H Creatinine 2.1 H Glucose 116 H POC Glucose 119 H Lactic Acid Calcium Phosphorus Magnesium Direct Bilirubin AST ALT Alkaline Phosphatase Lactate Dehydrogenase Troponin T C-Reactive Protein Total Protein Albumin Prealbumin Triglycerides Cholesterol LDL Cholesterol Direct HDL Cholesterol Urine pH Urine WBC (Auto) Urine Creatinine Urine Total Protein Fluid Total Protein Vancomycin Trough Rheumatoid Factor Complement C4 Miscellaneous Test Crossmatch 10/19/16 10/19/16 10/20/16 11:46 23:59 06:00 WBC RBC Hgb Hct MCV MCH MCHC RDW Plt Count Lymph % (Auto) [place] % (Auto) Lymph # [place] # Baso # Seg Neutrophils % Seg Neuts % (Manual) Lymphocytes % (Manual) Monocytes % (Manual) Eosinophils % (Manual) Basophils % (Manual) Nucleated RBC % Seg Neutrophils # Seg Neutrophils # Man Lymphocytes # (Manual) Monocytes # (Manual) Eosinophils # (Manual) PT INR Fibrinogen dRVVT Confirm Interp Factor V Activity POC ABG pH POC ABG pCO2 POC ABG pO2 ABG pO2 ABG HCO3 ABG Base Excess ABG Hemoglobin Oxyhemoglobin Sodium Potassium Chloride Carbon Dioxide 17 L BUN 94 H Creatinine 2.7 H Glucose POC Glucose 116 H 117 H Lactic Acid Calcium Phosphorus Magnesium Direct Bilirubin AST ALT Alkaline Phosphatase Lactate Dehydrogenase Troponin T C-Reactive Protein Total Protein Albumin Prealbumin Triglycerides Cholesterol LDL Cholesterol Direct HDL Cholesterol Urine pH Urine WBC (Auto) Urine Creatinine Urine Total Protein Fluid Total Protein Vancomycin Trough Rheumatoid Factor Complement C4 Miscellaneous Test Crossmatch 10/20/16 10/20/16 10/20/16 06:00 11:49 16:00 WBC 19.7 H RBC 2.51 L Hgb 7.7 L Hct 23.5 L MCV MCH MCHC RDW 17.5 H Plt Count Lymph % (Auto) [place] % (Auto) Lymph # [place] # Baso # Seg Neutrophils % Seg Neuts % (Manual) Lymphocytes % (Manual) Monocytes % (Manual) Eosinophils % (Manual) Basophils % (Manual) Nucleated RBC % Seg Neutrophils # Seg Neutrophils # Man Lymphocytes # (Manual) Monocytes # (Manual) Eosinophils # (Manual) PT INR Fibrinogen dRVVT Confirm Interp Factor V Activity POC ABG pH POC ABG pCO2 POC ABG pO2 ABG pO2 ABG HCO3 ABG Base Excess ABG Hemoglobin Oxyhemoglobin Sodium Potassium Chloride Carbon Dioxide BUN Creatinine Glucose POC Glucose 117 H Lactic Acid Calcium Phosphorus Magnesium Direct Bilirubin AST ALT Alkaline Phosphatase Lactate Dehydrogenase Troponin T C-Reactive Protein Total Protein Albumin Prealbumin Triglycerides Cholesterol LDL Cholesterol Direct HDL Cholesterol Urine pH Urine WBC (Auto) Urine Creatinine Urine Total Protein Fluid Total Protein Vancomycin Trough Rheumatoid Factor Complement C4 Miscellaneous Test Flexitest 1 H Crossmatch 10/20/16 10/20/16 10/21/16 18:36 23:39 04:00 WBC RBC Hgb Hct MCV MCH MCHC RDW Plt Count Lymph % (Auto) [place] % (Auto) Lymph # [place] # Baso # Seg Neutrophils % Seg Neuts % (Manual) Lymphocytes % (Manual) Monocytes % (Manual) Eosinophils % (Manual) Basophils % (Manual) Nucleated RBC % Seg Neutrophils # Seg Neutrophils # Man Lymphocytes # (Manual) Monocytes # (Manual) Eosinophils # (Manual) PT INR Fibrinogen dRVVT Confirm Interp Factor V Activity POC ABG pH POC ABG pCO2 POC ABG pO2 ABG pO2 ABG HCO3 ABG Base Excess ABG Hemoglobin Oxyhemoglobin Sodium Potassium 5.4 H D Chloride Carbon Dioxide 15 L BUN 110 H Creatinine 3.0 H Glucose POC Glucose 127 H 114 H Lactic Acid Calcium Phosphorus Magnesium Direct Bilirubin AST ALT Alkaline Phosphatase Lactate Dehydrogenase Troponin T C-Reactive Protein Total Protein Albumin Prealbumin Triglycerides Cholesterol LDL Cholesterol Direct HDL Cholesterol Urine pH Urine WBC (Auto) Urine Creatinine Urine Total Protein Fluid Total Protein Vancomycin Trough Rheumatoid Factor Complement C4 Miscellaneous Test Crossmatch 10/21/16 10/21/16 10/22/16 05:54 23:46 05:18 WBC RBC Hgb Hct MCV MCH MCHC RDW Plt Count Lymph % (Auto) [place] % (Auto) Lymph # [place] # Baso # Seg Neutrophils % Seg Neuts % (Manual) Lymphocytes % (Manual) Monocytes % (Manual) Eosinophils % (Manual) Basophils % (Manual) Nucleated RBC % Seg Neutrophils # Seg Neutrophils # Man Lymphocytes # (Manual) Monocytes # (Manual) Eosinophils # (Manual) PT INR Fibrinogen dRVVT Confirm Interp Factor V Activity POC ABG pH POC ABG pCO2 POC ABG pO2 ABG pO2 ABG HCO3 ABG Base Excess ABG Hemoglobin Oxyhemoglobin Sodium Potassium Chloride Carbon Dioxide BUN Creatinine Glucose POC Glucose 119 H 108 H 109 H Lactic Acid Calcium Phosphorus Magnesium Direct Bilirubin AST ALT Alkaline Phosphatase Lactate Dehydrogenase Troponin T C-Reactive Protein Total Protein Albumin Prealbumin Triglycerides Cholesterol LDL Cholesterol Direct HDL Cholesterol Urine pH Urine WBC (Auto) Urine Creatinine Urine Total Protein Fluid Total Protein Vancomycin Trough Rheumatoid Factor Complement C4 Miscellaneous Test Crossmatch 10/22/16 10/22/16 10/22/16 06:40 06:40 06:40 WBC 14.0 H RBC 2.03 L Hgb 7.0 L Hct 20.5 L MCV 98 H MCH 34 H MCHC 35 H RDW 17.8 H Plt Count Lymph % (Auto) [place] % (Auto) 9.9 H Lymph # [place] # 1.4 H Baso # 0.2 H Seg Neutrophils % 72.0 H Seg Neuts % (Manual) Lymphocytes % (Manual) Monocytes % (Manual) Eosinophils % (Manual) Basophils % (Manual) Nucleated RBC % Seg Neutrophils # 10.0 H Seg Neutrophils # Man Lymphocytes # (Manual) Monocytes # (Manual) Eosinophils # (Manual) PT INR Fibrinogen dRVVT Confirm Interp Factor V Activity POC ABG pH POC ABG pCO2 POC ABG pO2 ABG pO2 ABG HCO3 ABG Base Excess ABG Hemoglobin Oxyhemoglobin Sodium 130 L D Potassium Chloride 92.4 L Carbon Dioxide 20 L BUN 50 H Creatinine 1.6 H Glucose 589 H* POC Glucose Lactic Acid Calcium 7.8 L D Phosphorus Magnesium 1.60 L Direct Bilirubin AST ALT Alkaline Phosphatase Lactate Dehydrogenase Troponin T C-Reactive Protein Total Protein Albumin Prealbumin Triglycerides Cholesterol LDL Cholesterol Direct HDL Cholesterol Urine pH Urine WBC (Auto) Urine Creatinine Urine Total Protein Fluid Total Protein Vancomycin Trough Rheumatoid Factor Complement C4 Miscellaneous Test Crossmatch 10/22/16 10/22/16 10/22/16 11:39 16:44 23:36 WBC RBC Hgb Hct MCV MCH MCHC RDW Plt Count Lymph % (Auto) [place] % (Auto) Lymph # [place] # Baso # Seg Neutrophils % Seg Neuts % (Manual) Lymphocytes % (Manual) Monocytes % (Manual) Eosinophils % (Manual) Basophils % (Manual) Nucleated RBC % Seg Neutrophils # Seg Neutrophils # Man Lymphocytes # (Manual) Monocytes # (Manual) Eosinophils # (Manual) PT INR Fibrinogen dRVVT Confirm Interp Factor V Activity POC ABG pH POC ABG pCO2 POC ABG pO2 ABG pO2 ABG HCO3 ABG Base Excess ABG Hemoglobin Oxyhemoglobin Sodium Potassium Chloride Carbon Dioxide BUN Creatinine Glucose POC Glucose 142 H 163 H 123 H Lactic Acid Calcium Phosphorus Magnesium Direct Bilirubin AST ALT Alkaline Phosphatase Lactate Dehydrogenase Troponin T C-Reactive Protein Total Protein Albumin Prealbumin Triglycerides Cholesterol LDL Cholesterol Direct HDL Cholesterol Urine pH Urine WBC (Auto) Urine Creatinine Urine Total Protein Fluid Total Protein Vancomycin Trough Rheumatoid Factor Complement C4 Miscellaneous Test Crossmatch 10/23/16 10/23/16 10/23/16 04:58 06:00 12:12 WBC RBC Hgb Hct MCV MCH MCHC RDW Plt Count Lymph % (Auto) [place] % (Auto) Lymph # [place] # Baso # Seg Neutrophils % Seg Neuts % (Manual) Lymphocytes % (Manual) Monocytes % (Manual) Eosinophils % (Manual) Basophils % (Manual) Nucleated RBC % Seg Neutrophils # Seg Neutrophils # Man Lymphocytes # (Manual) Monocytes # (Manual) Eosinophils # (Manual) PT INR Fibrinogen dRVVT Confirm Interp Factor V Activity POC ABG pH POC ABG pCO2 POC ABG pO2 ABG pO2 ABG HCO3 ABG Base Excess ABG Hemoglobin Oxyhemoglobin Sodium 133 L Potassium 3.5 L Chloride 96.1 L Carbon Dioxide 18 L BUN 76 H Creatinine 2.1 H Glucose POC Glucose 133 H 138 H Lactic Acid Calcium 8.3 L Phosphorus Magnesium Direct Bilirubin AST ALT Alkaline Phosphatase Lactate Dehydrogenase Troponin T C-Reactive Protein Total Protein Albumin Prealbumin Triglycerides Cholesterol LDL Cholesterol Direct HDL Cholesterol Urine pH Urine WBC (Auto) Urine Creatinine Urine Total Protein Fluid Total Protein Vancomycin Trough Rheumatoid Factor Complement C4 Miscellaneous Test Crossmatch 10/23/16 10/23/16 10/24/16 16:53 23:37 04:00 WBC RBC Hgb Hct MCV MCH MCHC RDW Plt Count Lymph % (Auto) [place] % (Auto) Lymph # [place] # Baso # Seg Neutrophils % Seg Neuts % (Manual) Lymphocytes % (Manual) Monocytes % (Manual) Eosinophils % (Manual) Basophils % (Manual) Nucleated RBC % Seg Neutrophils # Seg Neutrophils # Man Lymphocytes # (Manual) Monocytes # (Manual) Eosinophils # (Manual) PT INR Fibrinogen dRVVT Confirm Interp Factor V Activity POC ABG pH POC ABG pCO2 POC ABG pO2 ABG pO2 ABG HCO3 ABG Base Excess ABG Hemoglobin Oxyhemoglobin Sodium 131 L Potassium Chloride 94.5 L Carbon Dioxide 19 L BUN 97 H Creatinine 2.6 H Glucose 110 H POC Glucose 125 H 123 H Lactic Acid Calcium 8.3 L Phosphorus Magnesium Direct Bilirubin AST ALT Alkaline Phosphatase Lactate Dehydrogenase Troponin T C-Reactive Protein Total Protein Albumin Prealbumin Triglycerides Cholesterol LDL Cholesterol Direct HDL Cholesterol Urine pH Urine WBC (Auto) Urine Creatinine Urine Total Protein Fluid Total Protein Vancomycin Trough Rheumatoid Factor Complement C4 Miscellaneous Test Crossmatch 10/24/16 10/24/16 10/24/16 07:49 11:39 17:52 WBC RBC Hgb 6.0 L Hct 19.7 L* MCV MCH MCHC RDW Plt Count Lymph % (Auto) [place] % (Auto) Lymph # [place] # Baso # Seg Neutrophils % Seg Neuts % (Manual) Lymphocytes % (Manual) Monocytes % (Manual) Eosinophils % (Manual) Basophils % (Manual) Nucleated RBC % Seg Neutrophils # Seg Neutrophils # Man Lymphocytes # (Manual) Monocytes # (Manual) Eosinophils # (Manual) PT INR Fibrinogen dRVVT Confirm Interp Factor V Activity POC ABG pH POC ABG pCO2 POC ABG pO2 ABG pO2 ABG HCO3 ABG Base Excess ABG Hemoglobin Oxyhemoglobin Sodium Potassium Chloride Carbon Dioxide BUN Creatinine Glucose POC Glucose 106 H 158 H Lactic Acid Calcium Phosphorus Magnesium Direct Bilirubin AST ALT Alkaline Phosphatase Lactate Dehydrogenase Troponin T C-Reactive Protein Total Protein Albumin Prealbumin Triglycerides Cholesterol LDL Cholesterol Direct HDL Cholesterol Urine pH Urine WBC (Auto) Urine Creatinine Urine Total Protein Fluid Total Protein Vancomycin Trough Rheumatoid Factor Complement C4 Miscellaneous Test Crossmatch 10/24/16 10/24/16 10/24/16 20:00 22:27 Unknown WBC RBC Hgb 9.4 L D Hct 27.5 L D MCV MCH MCHC RDW Plt Count Lymph % (Auto) [place] % (Auto) Lymph # [place] # Baso # Seg Neutrophils % Seg Neuts % (Manual) Lymphocytes % (Manual) Monocytes % (Manual) Eosinophils % (Manual) Basophils % (Manual) Nucleated RBC % Seg Neutrophils # Seg Neutrophils # Man Lymphocytes # (Manual) Monocytes # (Manual) Eosinophils # (Manual) PT INR Fibrinogen dRVVT Confirm Interp Factor V Activity POC ABG pH POC ABG pCO2 POC ABG pO2 ABG pO2 ABG HCO3 ABG Base Excess ABG Hemoglobin Oxyhemoglobin Sodium Potassium Chloride Carbon Dioxide BUN Creatinine Glucose POC Glucose 125 H Lactic Acid Calcium Phosphorus Magnesium Direct Bilirubin AST ALT Alkaline Phosphatase Lactate Dehydrogenase Troponin T C-Reactive Protein Total Protein Albumin Prealbumin Triglycerides Cholesterol LDL Cholesterol Direct HDL Cholesterol Urine pH Urine WBC (Auto) Urine Creatinine Urine Total Protein Fluid Total Protein Vancomycin Trough Rheumatoid Factor Complement C4 Miscellaneous Test Crossmatch See Detail 10/25/16 10/25/16 10/25/16 04:00 04:00 04:00 WBC 14.2 H RBC 2.98 L Hgb 9.0 L Hct 26.2 L MCV MCH MCHC RDW 16.6 H Plt Count Lymph % (Auto) [place] % (Auto) 10.7 H Lymph # [place] # 1.5 H Baso # Seg Neutrophils % 73.6 H Seg Neuts % (Manual) Lymphocytes % (Manual) Monocytes % (Manual) Eosinophils % (Manual) Basophils % (Manual) Nucleated RBC % Seg Neutrophils # 10.5 H Seg Neutrophils # Man Lymphocytes # (Manual) Monocytes # (Manual) Eosinophils # (Manual) PT INR Fibrinogen dRVVT Confirm Interp Factor V Activity POC ABG pH POC ABG pCO2 POC ABG pO2 ABG pO2 ABG HCO3 ABG Base Excess ABG Hemoglobin Oxyhemoglobin Sodium 132 L Potassium Chloride 94.7 L Carbon Dioxide BUN 51 H Creatinine 1.6 H Glucose 130 H POC Glucose Lactic Acid Calcium 8.3 L Phosphorus 1.60 L D Magnesium Direct Bilirubin AST ALT Alkaline Phosphatase Lactate Dehydrogenase Troponin T C-Reactive Protein Total Protein Albumin Prealbumin Triglycerides Cholesterol LDL Cholesterol Direct HDL Cholesterol Urine pH Urine WBC (Auto) Urine Creatinine Urine Total Protein Fluid Total Protein Vancomycin Trough Rheumatoid Factor Complement C4 Miscellaneous Test Crossmatch 10/25/16 10/25/16 10/25/16 04:32 11:48 17:22 WBC RBC Hgb Hct MCV MCH MCHC RDW Plt Count Lymph % (Auto) [place] % (Auto) Lymph # [place] # Baso # Seg Neutrophils % Seg Neuts % (Manual) Lymphocytes % (Manual) Monocytes % (Manual) Eosinophils % (Manual) Basophils % (Manual) Nucleated RBC % Seg Neutrophils # Seg Neutrophils # Man Lymphocytes # (Manual) Monocytes # (Manual) Eosinophils # (Manual) PT INR Fibrinogen dRVVT Confirm Interp Factor V Activity POC ABG pH POC ABG pCO2 POC ABG pO2 ABG pO2 ABG HCO3 ABG Base Excess ABG Hemoglobin Oxyhemoglobin Sodium Potassium Chloride Carbon Dioxide BUN Creatinine Glucose POC Glucose 124 H 171 H 120 H Lactic Acid Calcium Phosphorus Magnesium Direct Bilirubin AST ALT Alkaline Phosphatase Lactate Dehydrogenase Troponin T C-Reactive Protein Total Protein Albumin Prealbumin Triglycerides Cholesterol LDL Cholesterol Direct HDL Cholesterol Urine pH Urine WBC (Auto) Urine Creatinine Urine Total Protein Fluid Total Protein Vancomycin Trough Rheumatoid Factor Complement C4 Miscellaneous Test Crossmatch 10/26/16 10/26/16 10/26/16 04:54 07:06 07:06 WBC 16.9 H RBC 3.06 L Hgb 9.1 L Hct 26.9 L MCV MCH MCHC RDW 16.9 H Plt Count Lymph % (Auto) [place] % (Auto) Lymph # [place] # Baso # Seg Neutrophils % Seg Neuts % (Manual) 71.0 H Lymphocytes % (Manual) 5.0 L Monocytes % (Manual) 12.0 H Eosinophils % (Manual) Basophils % (Manual) Nucleated RBC % Seg Neutrophils # Seg Neutrophils # Man 12.0 H Lymphocytes # (Manual) 0.8 L Monocytes # (Manual) 2.0 H Eosinophils # (Manual) PT INR Fibrinogen dRVVT Confirm Interp Factor V Activity POC ABG pH POC ABG pCO2 POC ABG pO2 ABG pO2 ABG HCO3 ABG Base Excess ABG Hemoglobin Oxyhemoglobin Sodium 135 L Potassium Chloride 97.1 L Carbon Dioxide BUN 73 H Creatinine 2.2 H Glucose 117 H POC Glucose 123 H Lactic Acid Calcium Phosphorus 1.70 L Magnesium Direct Bilirubin AST ALT Alkaline Phosphatase Lactate Dehydrogenase Troponin T C-Reactive Protein Total Protein Albumin Prealbumin Triglycerides Cholesterol LDL Cholesterol Direct HDL Cholesterol Urine pH Urine WBC (Auto) Urine Creatinine Urine Total Protein Fluid Total Protein Vancomycin Trough Rheumatoid Factor Complement C4 Miscellaneous Test Crossmatch 10/26/16 10/26/16 10/26/16 12:12 17:29 23:42 WBC RBC Hgb Hct MCV MCH MCHC RDW Plt Count Lymph % (Auto) [place] % (Auto) Lymph # [place] # Baso # Seg Neutrophils % Seg Neuts % (Manual) Lymphocytes % (Manual) Monocytes % (Manual) Eosinophils % (Manual) Basophils % (Manual) Nucleated RBC % Seg Neutrophils # Seg Neutrophils # Man Lymphocytes # (Manual) Monocytes # (Manual) Eosinophils # (Manual) PT INR Fibrinogen dRVVT Confirm Interp Factor V Activity POC ABG pH POC ABG pCO2 POC ABG pO2 ABG pO2 ABG HCO3 ABG Base Excess ABG Hemoglobin Oxyhemoglobin Sodium Potassium Chloride Carbon Dioxide BUN Creatinine Glucose POC Glucose 126 H 161 H 118 H Lactic Acid Calcium Phosphorus Magnesium Direct Bilirubin AST ALT Alkaline Phosphatase Lactate Dehydrogenase Troponin T C-Reactive Protein Total Protein Albumin Prealbumin Triglycerides Cholesterol LDL Cholesterol Direct HDL Cholesterol Urine pH Urine WBC (Auto) Urine Creatinine Urine Total Protein Fluid Total Protein Vancomycin Trough Rheumatoid Factor Complement C4 Miscellaneous Test Crossmatch 10/27/16 10/27/16 10/27/16 05:03 06:30 06:30 WBC 13.9 H RBC 3.09 L Hgb 9.2 L Hct 27.5 L MCV MCH MCHC RDW 17.0 H Plt Count Lymph % (Auto) [place] % (Auto) Lymph # [place] # Baso # Seg Neutrophils % Seg Neuts % (Manual) 78.0 H Lymphocytes % (Manual) Monocytes % (Manual) Eosinophils % (Manual) Basophils % (Manual) Nucleated RBC % 2.0 H Seg Neutrophils # Seg Neutrophils # Man 10.8 H Lymphocytes # (Manual) Monocytes # (Manual) 1.0 H Eosinophils # (Manual) PT INR Fibrinogen dRVVT Confirm Interp Factor V Activity POC ABG pH POC ABG pCO2 POC ABG pO2 ABG pO2 ABG HCO3 ABG Base Excess ABG Hemoglobin Oxyhemoglobin Sodium Potassium Chloride Carbon Dioxide BUN 40 H Creatinine 1.5 H Glucose 135 H POC Glucose 107 H Lactic Acid Calcium 8.3 L Phosphorus 1.30 L D Magnesium Direct Bilirubin AST ALT Alkaline Phosphatase Lactate Dehydrogenase Troponin T C-Reactive Protein Total Protein Albumin Prealbumin Triglycerides Cholesterol LDL Cholesterol Direct HDL Cholesterol Urine pH Urine WBC (Auto) Urine Creatinine Urine Total Protein Fluid Total Protein Vancomycin Trough Rheumatoid Factor Complement C4 Miscellaneous Test Crossmatch 10/27/16 10/27/16 10/27/16 13:27 18:07 23:40 WBC RBC Hgb Hct MCV MCH MCHC RDW Plt Count Lymph % (Auto) [place] % (Auto) Lymph # [place] # Baso # Seg Neutrophils % Seg Neuts % (Manual) Lymphocytes % (Manual) Monocytes % (Manual) Eosinophils % (Manual) Basophils % (Manual) Nucleated RBC % Seg Neutrophils # Seg Neutrophils # Man Lymphocytes # (Manual) Monocytes # (Manual) Eosinophils # (Manual) PT INR Fibrinogen dRVVT Confirm Interp Factor V Activity POC ABG pH POC ABG pCO2 POC ABG pO2 ABG pO2 ABG HCO3 ABG Base Excess ABG Hemoglobin Oxyhemoglobin Sodium Potassium Chloride Carbon Dioxide BUN Creatinine Glucose POC Glucose 117 H 121 H 118 H Lactic Acid Calcium Phosphorus Magnesium Direct Bilirubin AST ALT Alkaline Phosphatase Lactate Dehydrogenase Troponin T C-Reactive Protein Total Protein Albumin Prealbumin Triglycerides Cholesterol LDL Cholesterol Direct HDL Cholesterol Urine pH Urine WBC (Auto) Urine Creatinine Urine Total Protein Fluid Total Protein Vancomycin Trough Rheumatoid Factor Complement C4 Miscellaneous Test Crossmatch 10/28/16 10/28/16 10/28/16 05:48 06:45 06:45 WBC 14.7 H RBC 3.05 L Hgb 9.0 L Hct 26.9 L MCV MCH MCHC RDW 16.8 H Plt Count Lymph % (Auto) 8.2 L [place] % (Auto) 8.4 H Lymph # [place] # 1.2 H Baso # Seg Neutrophils % 81.9 H Seg Neuts % (Manual) Lymphocytes % (Manual) Monocytes % (Manual) Eosinophils % (Manual) Basophils % (Manual) Nucleated RBC % Seg Neutrophils # 12.1 H Seg Neutrophils # Man Lymphocytes # (Manual) Monocytes # (Manual) Eosinophils # (Manual) PT INR Fibrinogen dRVVT Confirm Interp Factor V Activity POC ABG pH POC ABG pCO2 POC ABG pO2 ABG pO2 ABG HCO3 ABG Base Excess ABG Hemoglobin Oxyhemoglobin Sodium Potassium Chloride Carbon Dioxide BUN 60 H Creatinine 1.9 H Glucose 120 H POC Glucose 114 H Lactic Acid Calcium Phosphorus Magnesium Direct Bilirubin AST ALT Alkaline Phosphatase Lactate Dehydrogenase Troponin T C-Reactive Protein Total Protein Albumin Prealbumin Triglycerides Cholesterol LDL Cholesterol Direct HDL Cholesterol Urine pH Urine WBC (Auto) Urine Creatinine Urine Total Protein Fluid Total Protein Vancomycin Trough Rheumatoid Factor Complement C4 Miscellaneous Test Crossmatch 10/28/16 10/28/16 10/29/16 17:08 23:50 05:10 WBC RBC Hgb Hct MCV MCH MCHC RDW Plt Count Lymph % (Auto) [place] % (Auto) Lymph # [place] # Baso # Seg Neutrophils % Seg Neuts % (Manual) Lymphocytes % (Manual) Monocytes % (Manual) Eosinophils % (Manual) Basophils % (Manual) Nucleated RBC % Seg Neutrophils # Seg Neutrophils # Man Lymphocytes # (Manual) Monocytes # (Manual) Eosinophils # (Manual) PT INR Fibrinogen dRVVT Confirm Interp Factor V Activity POC ABG pH POC ABG pCO2 POC ABG pO2 ABG pO2 ABG HCO3 ABG Base Excess ABG Hemoglobin Oxyhemoglobin Sodium Potassium Chloride Carbon Dioxide BUN Creatinine Glucose POC Glucose 109 H 110 H 124 H Lactic Acid Calcium Phosphorus Magnesium Direct Bilirubin AST ALT Alkaline Phosphatase Lactate Dehydrogenase Troponin T C-Reactive Protein Total Protein Albumin Prealbumin Triglycerides Cholesterol LDL Cholesterol Direct HDL Cholesterol Urine pH Urine WBC (Auto) Urine Creatinine Urine Total Protein Fluid Total Protein Vancomycin Trough Rheumatoid Factor Complement C4 Miscellaneous Test Crossmatch 10/29/16 10/29/16 10/29/16 07:45 07:45 12:19 WBC 14.7 H RBC 3.15 L Hgb 9.3 L Hct 28.9 L MCV MCH MCHC RDW 17.0 H Plt Count Lymph % (Auto) 11.9 L [place] % (Auto) 8.6 H Lymph # [place] # 1.3 H Baso # Seg Neutrophils % 78.1 H Seg Neuts % (Manual) Lymphocytes % (Manual) Monocytes % (Manual) Eosinophils % (Manual) Basophils % (Manual) Nucleated RBC % Seg Neutrophils # 11.4 H Seg Neutrophils # Man Lymphocytes # (Manual) Monocytes # (Manual) Eosinophils # (Manual) PT INR Fibrinogen dRVVT Confirm Interp Factor V Activity POC ABG pH POC ABG pCO2 POC ABG pO2 ABG pO2 ABG HCO3 ABG Base Excess ABG Hemoglobin Oxyhemoglobin Sodium Potassium 5.1 H Chloride Carbon Dioxide 19 L BUN 78 H Creatinine 2.2 H Glucose 116 H POC Glucose 118 H Lactic Acid Calcium Phosphorus Magnesium Direct Bilirubin AST ALT Alkaline Phosphatase Lactate Dehydrogenase Troponin T C-Reactive Protein Total Protein Albumin Prealbumin Triglycerides Cholesterol LDL Cholesterol Direct HDL Cholesterol Urine pH Urine WBC (Auto) Urine Creatinine Urine Total Protein Fluid Total Protein Vancomycin Trough Rheumatoid Factor Complement C4 Miscellaneous Test Crossmatch 10/29/16 10/30/16 10/30/16 17:49 01:52 03:28 WBC RBC Hgb Hct MCV MCH MCHC RDW Plt Count Lymph % (Auto) [place] % (Auto) Lymph # [place] # Baso # Seg Neutrophils % Seg Neuts % (Manual) Lymphocytes % (Manual) Monocytes % (Manual) Eosinophils % (Manual) Basophils % (Manual) Nucleated RBC % Seg Neutrophils # Seg Neutrophils # Man Lymphocytes # (Manual) Monocytes # (Manual) Eosinophils # (Manual) PT INR Fibrinogen dRVVT Confirm Interp Factor V Activity POC ABG pH POC ABG pCO2 POC ABG pO2 ABG pO2 ABG HCO3 ABG Base Excess ABG Hemoglobin Oxyhemoglobin Sodium Potassium 5.4 H Chloride 97.5 L Carbon Dioxide 19 L BUN 90 H Creatinine 2.5 H Glucose POC Glucose 120 H 129 H Lactic Acid Calcium Phosphorus 5.20 H Magnesium Direct Bilirubin AST ALT Alkaline Phosphatase Lactate Dehydrogenase Troponin T C-Reactive Protein Total Protein Albumin Prealbumin Triglycerides Cholesterol LDL Cholesterol Direct HDL Cholesterol Urine pH Urine WBC (Auto) Urine Creatinine Urine Total Protein Fluid Total Protein Vancomycin Trough Rheumatoid Factor Complement C4 Miscellaneous Test Crossmatch 10/30/16 10/30/16 10/30/16 03:28 08:19 08:19 WBC 11.6 H 15.9 H RBC 2.75 L 2.82 L Hgb 7.9 L 8.3 L Hct 24.2 L 25.2 L MCV MCH MCHC RDW 16.7 H 17.2 H Plt Count Lymph % (Auto) [place] % (Auto) 9.8 H Lymph # [place] # 1.1 H Baso # Seg Neutrophils % 74.2 H Seg Neuts % (Manual) Lymphocytes % (Manual) Monocytes % (Manual) Eosinophils % (Manual) Basophils % (Manual) Nucleated RBC % Seg Neutrophils # 8.6 H Seg Neutrophils # Man Lymphocytes # (Manual) Monocytes # (Manual) Eosinophils # (Manual) PT INR Fibrinogen dRVVT Confirm Interp Factor V Activity POC ABG pH POC ABG pCO2 POC ABG pO2 ABG pO2 ABG HCO3 ABG Base Excess ABG Hemoglobin Oxyhemoglobin Sodium Potassium 5.3 H Chloride 97.4 L Carbon Dioxide 19 L BUN 93 H Creatinine 2.6 H Glucose POC Glucose Lactic Acid Calcium Phosphorus Magnesium Direct Bilirubin AST ALT Alkaline Phosphatase Lactate Dehydrogenase Troponin T C-Reactive Protein Total Protein Albumin Prealbumin Triglycerides Cholesterol LDL Cholesterol Direct HDL Cholesterol Urine pH Urine WBC (Auto) Urine Creatinine Urine Total Protein Fluid Total Protein Vancomycin Trough Rheumatoid Factor Complement C4 Miscellaneous Test Crossmatch 10/30/16 10/30/16 10/31/16 17:11 23:56 00:40 WBC RBC Hgb Hct MCV MCH MCHC RDW Plt Count Lymph % (Auto) [place] % (Auto) Lymph # [place] # Baso # Seg Neutrophils % Seg Neuts % (Manual) Lymphocytes % (Manual) Monocytes % (Manual) Eosinophils % (Manual) Basophils % (Manual) Nucleated RBC % Seg Neutrophils # Seg Neutrophils # Man Lymphocytes # (Manual) Monocytes # (Manual) Eosinophils # (Manual) PT INR Fibrinogen dRVVT Confirm Interp Factor V Activity POC ABG pH POC ABG pCO2 POC ABG pO2 ABG pO2 ABG HCO3 ABG Base Excess ABG Hemoglobin Oxyhemoglobin Sodium Potassium Chloride Carbon Dioxide BUN Creatinine Glucose POC Glucose 106 H 117 H 120 H Lactic Acid Calcium Phosphorus Magnesium Direct Bilirubin AST ALT Alkaline Phosphatase Lactate Dehydrogenase Troponin T C-Reactive Protein Total Protein Albumin Prealbumin Triglycerides Cholesterol LDL Cholesterol Direct HDL Cholesterol Urine pH Urine WBC (Auto) Urine Creatinine Urine Total Protein Fluid Total Protein Vancomycin Trough Rheumatoid Factor Complement C4 Miscellaneous Test Crossmatch 10/31/16 10/31/16 10/31/16 05:43 07:15 07:15 WBC 12.1 H RBC 2.63 L Hgb 7.7 L Hct 23.3 L MCV MCH MCHC RDW 16.7 H Plt Count Lymph % (Auto) 11.7 L [place] % (Auto) 7.7 H Lymph # [place] # 0.9 H Baso # Seg Neutrophils % 78.0 H Seg Neuts % (Manual) Lymphocytes % (Manual) Monocytes % (Manual) Eosinophils % (Manual) Basophils % (Manual) Nucleated RBC % Seg Neutrophils # 9.4 H Seg Neutrophils # Man Lymphocytes # (Manual) Monocytes # (Manual) Eosinophils # (Manual) PT INR Fibrinogen dRVVT Confirm Interp Factor V Activity POC ABG pH POC ABG pCO2 POC ABG pO2 ABG pO2 ABG HCO3 ABG Base Excess ABG Hemoglobin Oxyhemoglobin Sodium Potassium Chloride 96.4 L Carbon Dioxide 21 L BUN 99 H Creatinine 2.6 H Glucose 144 H POC Glucose 125 H Lactic Acid Calcium Phosphorus 4.80 H Magnesium Direct Bilirubin AST ALT Alkaline Phosphatase Lactate Dehydrogenase Troponin T C-Reactive Protein Total Protein Albumin Prealbumin Triglycerides Cholesterol LDL Cholesterol Direct HDL Cholesterol Urine pH Urine WBC (Auto) Urine Creatinine Urine Total Protein Fluid Total Protein Vancomycin Trough Rheumatoid Factor Complement C4 Miscellaneous Test Crossmatch 10/31/16 10/31/16 11/01/16 11:46 18:34 00:20 WBC RBC Hgb Hct MCV MCH MCHC RDW Plt Count Lymph % (Auto) [place] % (Auto) Lymph # [place] # Baso # Seg Neutrophils % Seg Neuts % (Manual) Lymphocytes % (Manual) Monocytes % (Manual) Eosinophils % (Manual) Basophils % (Manual) Nucleated RBC % Seg Neutrophils # Seg Neutrophils # Man Lymphocytes # (Manual) Monocytes # (Manual) Eosinophils # (Manual) PT INR Fibrinogen dRVVT Confirm Interp Factor V Activity POC ABG pH POC ABG pCO2 POC ABG pO2 ABG pO2 ABG HCO3 ABG Base Excess ABG Hemoglobin Oxyhemoglobin Sodium Potassium Chloride Carbon Dioxide BUN Creatinine Glucose POC Glucose 159 H 140 H 132 H Lactic Acid Calcium Phosphorus Magnesium Direct Bilirubin AST ALT Alkaline Phosphatase Lactate Dehydrogenase Troponin T C-Reactive Protein Total Protein Albumin Prealbumin Triglycerides Cholesterol LDL Cholesterol Direct HDL Cholesterol Urine pH Urine WBC (Auto) Urine Creatinine Urine Total Protein Fluid Total Protein Vancomycin Trough Rheumatoid Factor Complement C4 Miscellaneous Test Crossmatch 11/01/16 11/01/16 11/01/16 04:55 04:55 06:11 WBC 11.2 H RBC 2.68 L Hgb 7.5 L Hct 23.7 L MCV MCH MCHC RDW 16.1 H Plt Count Lymph % (Auto) [place] % (Auto) 9.8 H Lymph # [place] # 1.1 H Baso # Seg Neutrophils % 70.8 H Seg Neuts % (Manual) Lymphocytes % (Manual) Monocytes % (Manual) Eosinophils % (Manual) Basophils % (Manual) Nucleated RBC % Seg Neutrophils # 7.9 H Seg Neutrophils # Man Lymphocytes # (Manual) Monocytes # (Manual) Eosinophils # (Manual) PT INR Fibrinogen dRVVT Confirm Interp Factor V Activity POC ABG pH POC ABG pCO2 POC ABG pO2 ABG pO2 ABG HCO3 ABG Base Excess ABG Hemoglobin Oxyhemoglobin Sodium Potassium 3.3 L D Chloride Carbon Dioxide BUN 61 H Creatinine 1.9 H Glucose 114 H POC Glucose 115 H Lactic Acid Calcium Phosphorus 1.80 L D Magnesium Direct Bilirubin AST ALT Alkaline Phosphatase Lactate Dehydrogenase Troponin T C-Reactive Protein Total Protein Albumin Prealbumin Triglycerides Cholesterol LDL Cholesterol Direct HDL Cholesterol Urine pH Urine WBC (Auto) Urine Creatinine Urine Total Protein Fluid Total Protein Vancomycin Trough Rheumatoid Factor Complement C4 Miscellaneous Test Crossmatch 11/01/16 11/01/16 11/01/16 12:29 18:23 23:58 WBC RBC Hgb Hct MCV MCH MCHC RDW Plt Count Lymph % (Auto) [place] % (Auto) Lymph # [place] # Baso # Seg Neutrophils % Seg Neuts % (Manual) Lymphocytes % (Manual) Monocytes % (Manual) Eosinophils % (Manual) Basophils % (Manual) Nucleated RBC % Seg Neutrophils # Seg Neutrophils # Man Lymphocytes # (Manual) Monocytes # (Manual) Eosinophils # (Manual) PT INR Fibrinogen dRVVT Confirm Interp Factor V Activity POC ABG pH POC ABG pCO2 POC ABG pO2 ABG pO2 ABG HCO3 ABG Base Excess ABG Hemoglobin Oxyhemoglobin Sodium Potassium Chloride Carbon Dioxide BUN Creatinine Glucose POC Glucose 142 H 143 H 128 H Lactic Acid Calcium Phosphorus Magnesium Direct Bilirubin AST ALT Alkaline Phosphatase Lactate Dehydrogenase Troponin T C-Reactive Protein Total Protein Albumin Prealbumin Triglycerides Cholesterol LDL Cholesterol Direct HDL Cholesterol Urine pH Urine WBC (Auto) Urine Creatinine Urine Total Protein Fluid Total Protein Vancomycin Trough Rheumatoid Factor Complement C4 Miscellaneous Test Crossmatch 11/02/16 11/02/16 11/02/16 04:16 05:29 11:58 WBC RBC Hgb Hct MCV MCH MCHC RDW Plt Count Lymph % (Auto) [place] % (Auto) Lymph # [place] # Baso # Seg Neutrophils % Seg Neuts % (Manual) Lymphocytes % (Manual) Monocytes % (Manual) Eosinophils % (Manual) Basophils % (Manual) Nucleated RBC % Seg Neutrophils # Seg Neutrophils # Man Lymphocytes # (Manual) Monocytes # (Manual) Eosinophils # (Manual) PT INR Fibrinogen dRVVT Confirm Interp Factor V Activity POC ABG pH POC ABG pCO2 POC ABG pO2 ABG pO2 ABG HCO3 ABG Base Excess ABG Hemoglobin Oxyhemoglobin Sodium Potassium 3.1 L Chloride Carbon Dioxide BUN 73 H Creatinine 2.3 H Glucose 112 H POC Glucose 135 H 149 H Lactic Acid Calcium Phosphorus Magnesium Direct Bilirubin AST ALT Alkaline Phosphatase Lactate Dehydrogenase Troponin T C-Reactive Protein Total Protein Albumin Prealbumin Triglycerides Cholesterol LDL Cholesterol Direct HDL Cholesterol Urine pH Urine WBC (Auto) Urine Creatinine Urine Total Protein Fluid Total Protein Vancomycin Trough Rheumatoid Factor Complement C4 Miscellaneous Test Crossmatch 11/02/16 11/02/16 11/03/16 17:42 22:54 06:00 WBC RBC Hgb Hct MCV MCH MCHC RDW Plt Count Lymph % (Auto) [place] % (Auto) Lymph # [place] # Baso # Seg Neutrophils % Seg Neuts % (Manual) Lymphocytes % (Manual) Monocytes % (Manual) Eosinophils % (Manual) Basophils % (Manual) Nucleated RBC % Seg Neutrophils # Seg Neutrophils # Man Lymphocytes # (Manual) Monocytes # (Manual) Eosinophils # (Manual) PT INR Fibrinogen dRVVT Confirm Interp Factor V Activity POC ABG pH POC ABG pCO2 POC ABG pO2 ABG pO2 ABG HCO3 ABG Base Excess ABG Hemoglobin Oxyhemoglobin Sodium Potassium Chloride 96.7 L Carbon Dioxide BUN 41 H Creatinine 1.5 H Glucose 145 H POC Glucose 182 H 115 H Lactic Acid Calcium Phosphorus 1.60 L D Magnesium 1.50 L Direct Bilirubin AST ALT Alkaline Phosphatase Lactate Dehydrogenase Troponin T C-Reactive Protein Total Protein Albumin Prealbumin Triglycerides Cholesterol LDL Cholesterol Direct HDL Cholesterol Urine pH Urine WBC (Auto) Urine Creatinine Urine Total Protein Fluid Total Protein Vancomycin Trough Rheumatoid Factor Complement C4 Miscellaneous Test Crossmatch 11/03/16 11/03/16 11/03/16 11:53 17:45 23:37 WBC RBC Hgb Hct MCV MCH MCHC RDW Plt Count Lymph % (Auto) [place] % (Auto) Lymph # [place] # Baso # Seg Neutrophils % Seg Neuts % (Manual) Lymphocytes % (Manual) Monocytes % (Manual) Eosinophils % (Manual) Basophils % (Manual) Nucleated RBC % Seg Neutrophils # Seg Neutrophils # Man Lymphocytes # (Manual) Monocytes # (Manual) Eosinophils # (Manual) PT INR Fibrinogen dRVVT Confirm Interp Factor V Activity POC ABG pH POC ABG pCO2 POC ABG pO2 ABG pO2 ABG HCO3 ABG Base Excess ABG Hemoglobin Oxyhemoglobin Sodium Potassium Chloride Carbon Dioxide BUN Creatinine Glucose POC Glucose 131 H 134 H 113 H Lactic Acid Calcium Phosphorus Magnesium Direct Bilirubin AST ALT Alkaline Phosphatase Lactate Dehydrogenase Troponin T C-Reactive Protein Total Protein Albumin Prealbumin Triglycerides Cholesterol LDL Cholesterol Direct HDL Cholesterol Urine pH Urine WBC (Auto) Urine Creatinine Urine Total Protein Fluid Total Protein Vancomycin Trough Rheumatoid Factor Complement C4 Miscellaneous Test Crossmatch 11/04/16 11/04/16 11/04/16 05:41 06:00 12:10 WBC RBC Hgb Hct MCV MCH MCHC RDW Plt Count Lymph % (Auto) [place] % (Auto) Lymph # [place] # Baso # Seg Neutrophils % Seg Neuts % (Manual) Lymphocytes % (Manual) Monocytes % (Manual) Eosinophils % (Manual) Basophils % (Manual) Nucleated RBC % Seg Neutrophils # Seg Neutrophils # Man Lymphocytes # (Manual) Monocytes # (Manual) Eosinophils # (Manual) PT INR Fibrinogen dRVVT Confirm Interp Factor V Activity POC ABG pH POC ABG pCO2 POC ABG pO2 ABG pO2 ABG HCO3 ABG Base Excess ABG Hemoglobin Oxyhemoglobin Sodium Potassium Chloride 96.7 L Carbon Dioxide BUN 52 H Creatinine 1.9 H Glucose 126 H POC Glucose 137 H 191 H Lactic Acid Calcium Phosphorus Magnesium Direct Bilirubin AST ALT Alkaline Phosphatase Lactate Dehydrogenase Troponin T C-Reactive Protein Total Protein Albumin Prealbumin Triglycerides Cholesterol LDL Cholesterol Direct HDL Cholesterol Urine pH Urine WBC (Auto) Urine Creatinine Urine Total Protein Fluid Total Protein Vancomycin Trough Rheumatoid Factor Complement C4 Miscellaneous Test Crossmatch 11/04/16 11/05/16 11/05/16 22:57 03:10 05:10 WBC RBC Hgb Hct MCV MCH MCHC RDW Plt Count Lymph % (Auto) [place] % (Auto) Lymph # [place] # Baso # Seg Neutrophils % Seg Neuts % (Manual) Lymphocytes % (Manual) Monocytes % (Manual) Eosinophils % (Manual) Basophils % (Manual) Nucleated RBC % Seg Neutrophils # Seg Neutrophils # Man Lymphocytes # (Manual) Monocytes # (Manual) Eosinophils # (Manual) PT INR Fibrinogen dRVVT Confirm Interp Factor V Activity POC ABG pH POC ABG pCO2 POC ABG pO2 ABG pO2 ABG HCO3 ABG Base Excess ABG Hemoglobin Oxyhemoglobin Sodium 136 L Potassium Chloride 97.2 L Carbon Dioxide BUN 32 H Creatinine 1.3 H Glucose 123 H POC Glucose 125 H 108 H Lactic Acid Calcium 7.8 L Phosphorus Magnesium Direct Bilirubin AST ALT Alkaline Phosphatase Lactate Dehydrogenase Troponin T C-Reactive Protein Total Protein Albumin Prealbumin Triglycerides Cholesterol LDL Cholesterol Direct HDL Cholesterol Urine pH Urine WBC (Auto) Urine Creatinine Urine Total Protein Fluid Total Protein Vancomycin Trough Rheumatoid Factor Complement C4 Miscellaneous Test Crossmatch 11/05/16 11/05/16 11/05/16 12:23 13:09 13:25 WBC RBC Hgb Hct MCV MCH MCHC RDW Plt Count Lymph % (Auto) [place] % (Auto) Lymph # [place] # Baso # Seg Neutrophils % Seg Neuts % (Manual) Lymphocytes % (Manual) Monocytes % (Manual) Eosinophils % (Manual) Basophils % (Manual) Nucleated RBC % Seg Neutrophils # Seg Neutrophils # Man Lymphocytes # (Manual) Monocytes # (Manual) Eosinophils # (Manual) PT INR Fibrinogen dRVVT Confirm Interp Factor V Activity POC ABG pH POC ABG pCO2 POC ABG pO2 ABG pO2 ABG HCO3 ABG Base Excess ABG Hemoglobin Oxyhemoglobin Sodium Potassium Chloride Carbon Dioxide BUN Creatinine Glucose POC Glucose 124 H Lactic Acid Calcium Phosphorus Magnesium Direct Bilirubin AST ALT Alkaline Phosphatase Lactate Dehydrogenase Troponin T C-Reactive Protein 11.40 H Total Protein Albumin Prealbumin Triglycerides Cholesterol LDL Cholesterol Direct HDL Cholesterol Urine pH 9.0 H Urine WBC (Auto) Urine Creatinine Urine Total Protein Fluid Total Protein Vancomycin Trough Rheumatoid Factor Complement C4 Miscellaneous Test Crossmatch 11/05/16 11/05/16 11/05/16 13:25 17:54 23:42 WBC RBC Hgb Hct MCV MCH MCHC RDW Plt Count Lymph % (Auto) [place] % (Auto) Lymph # [place] # Baso # Seg Neutrophils % Seg Neuts % (Manual) Lymphocytes % (Manual) Monocytes % (Manual) Eosinophils % (Manual) Basophils % (Manual) Nucleated RBC % Seg Neutrophils # Seg Neutrophils # Man Lymphocytes # (Manual) Monocytes # (Manual) Eosinophils # (Manual) PT INR Fibrinogen dRVVT Confirm Interp Factor V Activity POC ABG pH POC ABG pCO2 POC ABG pO2 ABG pO2 ABG HCO3 ABG Base Excess ABG Hemoglobin Oxyhemoglobin Sodium Potassium Chloride Carbon Dioxide BUN Creatinine Glucose POC Glucose 114 H 134 H Lactic Acid Calcium Phosphorus Magnesium Direct Bilirubin AST ALT Alkaline Phosphatase Lactate Dehydrogenase Troponin T C-Reactive Protein Total Protein Albumin Prealbumin Triglycerides Cholesterol LDL Cholesterol Direct HDL Cholesterol Urine pH Urine WBC (Auto) Urine Creatinine Urine Total Protein Fluid Total Protein Vancomycin Trough Rheumatoid Factor Complement C4 Miscellaneous Test Flexitest 1 H Crossmatch 11/06/16 11/06/16 11/06/16 04:56 06:25 06:25 WBC RBC 2.50 L Hgb 7.3 L Hct 22.5 L MCV MCH MCHC RDW 16.9 H Plt Count Lymph % (Auto) [place] % (Auto) 10.5 H Lymph # [place] # 1.1 H Baso # Seg Neutrophils % Seg Neuts % (Manual) Lymphocytes % (Manual) Monocytes % (Manual) Eosinophils % (Manual) Basophils % (Manual) Nucleated RBC % Seg Neutrophils # Seg Neutrophils # Man Lymphocytes # (Manual) Monocytes # (Manual) Eosinophils # (Manual) PT INR Fibrinogen dRVVT Confirm Interp Factor V Activity POC ABG pH POC ABG pCO2 POC ABG pO2 ABG pO2 ABG HCO3 ABG Base Excess ABG Hemoglobin Oxyhemoglobin Sodium Potassium 5.1 H Chloride 95.9 L Carbon Dioxide BUN 52 H Creatinine 1.8 H Glucose 117 H POC Glucose 120 H Lactic Acid Calcium Phosphorus Magnesium Direct Bilirubin AST 103 H ALT 77 H Alkaline Phosphatase 285 H Lactate Dehydrogenase Troponin T C-Reactive Protein Total Protein 6.2 L Albumin 1.8 L Prealbumin 0.180 L Triglycerides Cholesterol LDL Cholesterol Direct HDL Cholesterol Urine pH Urine WBC (Auto) Urine Creatinine Urine Total Protein Fluid Total Protein Vancomycin Trough Rheumatoid Factor Complement C4 Miscellaneous Test Crossmatch 11/06/16 11/06/16 11/06/16 11:56 17:14 23:52 WBC RBC Hgb Hct MCV MCH MCHC RDW Plt Count Lymph % (Auto) [place] % (Auto) Lymph # [place] # Baso # Seg Neutrophils % Seg Neuts % (Manual) Lymphocytes % (Manual) Monocytes % (Manual) Eosinophils % (Manual) Basophils % (Manual) Nucleated RBC % Seg Neutrophils # Seg Neutrophils # Man Lymphocytes # (Manual) Monocytes # (Manual) Eosinophils # (Manual) PT INR Fibrinogen dRVVT Confirm Interp Factor V Activity POC ABG pH POC ABG pCO2 POC ABG pO2 ABG pO2 ABG HCO3 ABG Base Excess ABG Hemoglobin Oxyhemoglobin Sodium Potassium Chloride Carbon Dioxide BUN Creatinine Glucose POC Glucose 141 H 125 H 130 H Lactic Acid Calcium Phosphorus Magnesium Direct Bilirubin AST ALT Alkaline Phosphatase Lactate Dehydrogenase Troponin T C-Reactive Protein Total Protein Albumin Prealbumin Triglycerides Cholesterol LDL Cholesterol Direct HDL Cholesterol Urine pH Urine WBC (Auto) Urine Creatinine Urine Total Protein Fluid Total Protein Vancomycin Trough Rheumatoid Factor Complement C4 Miscellaneous Test Crossmatch 11/07/16 11/07/16 11/07/16 06:30 06:30 09:37 WBC RBC 2.18 L Hgb 6.3 L Hct 19.7 L* MCV MCH MCHC RDW 16.8 H Plt Count Lymph % (Auto) [place] % (Auto) 10.0 H Lymph # [place] # 1.0 H Baso # Seg Neutrophils % Seg Neuts % (Manual) Lymphocytes % (Manual) Monocytes % (Manual) Eosinophils % (Manual) Basophils % (Manual) Nucleated RBC % Seg Neutrophils # Seg Neutrophils # Man Lymphocytes # (Manual) Monocytes # (Manual) Eosinophils # (Manual) PT INR Fibrinogen dRVVT Confirm Interp Factor V Activity POC ABG pH POC ABG pCO2 POC ABG pO2 ABG pO2 ABG HCO3 ABG Base Excess ABG Hemoglobin Oxyhemoglobin Sodium 135 L Potassium Chloride 95.6 L Carbon Dioxide BUN 70 H Creatinine 2.0 H Glucose 126 H POC Glucose Lactic Acid Calcium Phosphorus Magnesium Direct Bilirubin AST ALT Alkaline Phosphatase Lactate Dehydrogenase Troponin T C-Reactive Protein Total Protein Albumin Prealbumin Triglycerides Cholesterol LDL Cholesterol Direct HDL Cholesterol Urine pH Urine WBC (Auto) Urine Creatinine Urine Total Protein Fluid Total Protein Vancomycin Trough Rheumatoid Factor Complement C4 Miscellaneous Test Crossmatch See Detail 11/07/16 11/07/16 11/07/16 12:52 18:51 21:26 WBC RBC Hgb Hct MCV MCH MCHC RDW Plt Count Lymph % (Auto) [place] % (Auto) Lymph # [place] # Baso # Seg Neutrophils % Seg Neuts % (Manual) Lymphocytes % (Manual) Monocytes % (Manual) Eosinophils % (Manual) Basophils % (Manual) Nucleated RBC % Seg Neutrophils # Seg Neutrophils # Man Lymphocytes # (Manual) Monocytes # (Manual) Eosinophils # (Manual) PT INR Fibrinogen dRVVT Confirm Interp Factor V Activity POC ABG pH 7.523 H POC ABG pCO2 34.6 L POC ABG pO2 53 L ABG pO2 ABG HCO3 ABG Base Excess ABG Hemoglobin Oxyhemoglobin Sodium Potassium Chloride Carbon Dioxide BUN Creatinine Glucose POC Glucose 142 H 155 H Lactic Acid Calcium Phosphorus Magnesium Direct Bilirubin AST ALT Alkaline Phosphatase Lactate Dehydrogenase Troponin T C-Reactive Protein Total Protein Albumin Prealbumin Triglycerides Cholesterol LDL Cholesterol Direct HDL Cholesterol Urine pH Urine WBC (Auto) Urine Creatinine Urine Total Protein Fluid Total Protein Vancomycin Trough Rheumatoid Factor Complement C4 Miscellaneous Test Crossmatch 11/07/16 11/08/16 11/08/16 21:34 13:03 23:37 WBC RBC 2.63 L Hgb 7.7 L Hct 22.7 L MCV MCH MCHC RDW 17.0 H Plt Count Lymph % (Auto) [place] % (Auto) Lymph # [place] # Baso # Seg Neutrophils % Seg Neuts % (Manual) Lymphocytes % (Manual) Monocytes % (Manual) Eosinophils % (Manual) Basophils % (Manual) Nucleated RBC % Seg Neutrophils # Seg Neutrophils # Man Lymphocytes # (Manual) Monocytes # (Manual) Eosinophils # (Manual) PT INR Fibrinogen dRVVT Confirm Interp Factor V Activity POC ABG pH 7.478 H POC ABG pCO2 34.0 L POC ABG pO2 50 L ABG pO2 ABG HCO3 ABG Base Excess ABG Hemoglobin Oxyhemoglobin Sodium Potassium Chloride Carbon Dioxide BUN Creatinine Glucose POC Glucose 113 H Lactic Acid Calcium Phosphorus Magnesium Direct Bilirubin AST ALT Alkaline Phosphatase Lactate Dehydrogenase Troponin T C-Reactive Protein Total Protein Albumin Prealbumin Triglycerides Cholesterol LDL Cholesterol Direct HDL Cholesterol Urine pH Urine WBC (Auto) Urine Creatinine Urine Total Protein Fluid Total Protein Vancomycin Trough Rheumatoid Factor Complement C4 Miscellaneous Test Crossmatch 11/09/16 11/09/16 11/09/16 04:35 10:15 18:21 WBC RBC 2.68 L Hgb 7.8 L Hct 23.3 L MCV MCH MCHC RDW 17.0 H Plt Count Lymph % (Auto) [place] % (Auto) 12.1 H Lymph # [place] # 1.1 H Baso # Seg Neutrophils % Seg Neuts % (Manual) Lymphocytes % (Manual) Monocytes % (Manual) Eosinophils % (Manual) Basophils % (Manual) Nucleated RBC % Seg Neutrophils # Seg Neutrophils # Man Lymphocytes # (Manual) Monocytes # (Manual) Eosinophils # (Manual) PT INR Fibrinogen dRVVT Confirm Interp Factor V Activity POC ABG pH POC ABG pCO2 POC ABG pO2 ABG pO2 ABG HCO3 ABG Base Excess ABG Hemoglobin Oxyhemoglobin Sodium Potassium Chloride Carbon Dioxide BUN 51 H Creatinine 1.8 H Glucose POC Glucose 60 L Lactic Acid Calcium 8.3 L Phosphorus Magnesium Direct Bilirubin AST ALT Alkaline Phosphatase Lactate Dehydrogenase Troponin T C-Reactive Protein Total Protein Albumin Prealbumin Triglycerides Cholesterol LDL Cholesterol Direct HDL Cholesterol Urine pH Urine WBC (Auto) Urine Creatinine Urine Total Protein Fluid Total Protein Vancomycin Trough Rheumatoid Factor Complement C4 Miscellaneous Test Crossmatch 11/09/16 11/10/16 11/10/16 18:55 07:00 11:51 WBC RBC Hgb Hct MCV MCH MCHC RDW Plt Count Lymph % (Auto) [place] % (Auto) Lymph # [place] # Baso # Seg Neutrophils % Seg Neuts % (Manual) Lymphocytes % (Manual) Monocytes % (Manual) Eosinophils % (Manual) Basophils % (Manual) Nucleated RBC % Seg Neutrophils # Seg Neutrophils # Man Lymphocytes # (Manual) Monocytes # (Manual) Eosinophils # (Manual) PT INR Fibrinogen dRVVT Confirm Interp Factor V Activity POC ABG pH POC ABG pCO2 POC ABG pO2 ABG pO2 ABG HCO3 ABG Base Excess ABG Hemoglobin Oxyhemoglobin Sodium Potassium 3.0 L D Chloride 97.4 L Carbon Dioxide BUN 28 H Creatinine 1.3 H Glucose POC Glucose 68 L 120 H Lactic Acid Calcium 7.8 L Phosphorus Magnesium Direct Bilirubin AST ALT Alkaline Phosphatase Lactate Dehydrogenase Troponin T C-Reactive Protein Total Protein Albumin Prealbumin Triglycerides Cholesterol LDL Cholesterol Direct HDL Cholesterol Urine pH Urine WBC (Auto) Urine Creatinine Urine Total Protein Fluid Total Protein Vancomycin Trough Rheumatoid Factor Complement C4 Miscellaneous Test Crossmatch 11/10/16 11/11/16 11/11/16 14:20 06:59 06:59 WBC RBC 2.81 L Hgb 8.1 L Hct 24.4 L MCV MCH MCHC RDW 16.4 H Plt Count Lymph % (Auto) [place] % (Auto) 10.8 H Lymph # [place] # 1.0 H Baso # Seg Neutrophils % Seg Neuts % (Manual) Lymphocytes % (Manual) Monocytes % (Manual) Eosinophils % (Manual) Basophils % (Manual) Nucleated RBC % Seg Neutrophils # Seg Neutrophils # Man Lymphocytes # (Manual) Monocytes # (Manual) Eosinophils # (Manual) PT INR Fibrinogen dRVVT Confirm Interp Factor V Activity POC ABG pH POC ABG pCO2 POC ABG pO2 ABG pO2 ABG HCO3 ABG Base Excess ABG Hemoglobin Oxyhemoglobin Sodium Potassium Chloride Carbon Dioxide BUN Creatinine Glucose POC Glucose Lactic Acid Calcium Phosphorus Magnesium Direct Bilirubin AST ALT Alkaline Phosphatase Lactate Dehydrogenase 196 H Troponin T C-Reactive Protein Total Protein 6.1 L Albumin Prealbumin Triglycerides Cholesterol LDL Cholesterol Direct HDL Cholesterol Urine pH Urine WBC (Auto) Urine Creatinine Urine Total Protein Fluid Total Protein < 3.0 L Vancomycin Trough Rheumatoid Factor Complement C4 Miscellaneous Test Crossmatch 11/11/16 11/11/16 11/12/16 06:59 09:50 04:00 WBC RBC Hgb Hct MCV MCH MCHC RDW Plt Count Lymph % (Auto) [place] % (Auto) Lymph # [place] # Baso # Seg Neutrophils % Seg Neuts % (Manual) Lymphocytes % (Manual) Monocytes % (Manual) Eosinophils % (Manual) Basophils % (Manual) Nucleated RBC % Seg Neutrophils # Seg Neutrophils # Man Lymphocytes # (Manual) Monocytes # (Manual) Eosinophils # (Manual) PT INR 1.18 H Fibrinogen dRVVT Confirm Interp Factor V Activity POC ABG pH POC ABG pCO2 POC ABG pO2 ABG pO2 ABG HCO3 ABG Base Excess ABG Hemoglobin Oxyhemoglobin Sodium 136 L 133 L Potassium Chloride 96.1 L 94.8 L Carbon Dioxide 21 L BUN 37 H 42 H Creatinine 1.8 H 2.0 H Glucose POC Glucose Lactic Acid Calcium Phosphorus Magnesium Direct Bilirubin AST ALT Alkaline Phosphatase Lactate Dehydrogenase Troponin T C-Reactive Protein Total Protein Albumin Prealbumin Triglycerides Cholesterol LDL Cholesterol Direct HDL Cholesterol Urine pH Urine WBC (Auto) Urine Creatinine Urine Total Protein Fluid Total Protein Vancomycin Trough Rheumatoid Factor Complement C4 Miscellaneous Test Crossmatch 11/12/16 11/12/16 11/13/16 04:00 23:55 05:53 WBC RBC Hgb 8.9 L Hct 27.2 L MCV MCH MCHC RDW Plt Count Lymph % (Auto) [place] % (Auto) Lymph # [place] # Baso # Seg Neutrophils % Seg Neuts % (Manual) Lymphocytes % (Manual) Monocytes % (Manual) Eosinophils % (Manual) Basophils % (Manual) Nucleated RBC % Seg Neutrophils # Seg Neutrophils # Man Lymphocytes # (Manual) Monocytes # (Manual) Eosinophils # (Manual) PT INR Fibrinogen dRVVT Confirm Interp Factor V Activity POC ABG pH POC ABG pCO2 POC ABG pO2 ABG pO2 ABG HCO3 ABG Base Excess ABG Hemoglobin Oxyhemoglobin Sodium Potassium Chloride Carbon Dioxide BUN Creatinine Glucose POC Glucose 132 H 120 H Lactic Acid Calcium Phosphorus Magnesium Direct Bilirubin AST ALT Alkaline Phosphatase Lactate Dehydrogenase Troponin T C-Reactive Protein Total Protein Albumin Prealbumin Triglycerides Cholesterol LDL Cholesterol Direct HDL Cholesterol Urine pH Urine WBC (Auto) Urine Creatinine Urine Total Protein Fluid Total Protein Vancomycin Trough Rheumatoid Factor Complement C4 Miscellaneous Test Crossmatch 11/13/16 11/13/16 11/13/16 11:43 17:09 23:41 WBC RBC Hgb Hct MCV MCH MCHC RDW Plt Count Lymph % (Auto) [place] % (Auto) Lymph # [place] # Baso # Seg Neutrophils % Seg Neuts % (Manual) Lymphocytes % (Manual) Monocytes % (Manual) Eosinophils % (Manual) Basophils % (Manual) Nucleated RBC % Seg Neutrophils # Seg Neutrophils # Man Lymphocytes # (Manual) Monocytes # (Manual) Eosinophils # (Manual) PT INR Fibrinogen dRVVT Confirm Interp Factor V Activity POC ABG pH POC ABG pCO2 POC ABG pO2 ABG pO2 ABG HCO3 ABG Base Excess ABG Hemoglobin Oxyhemoglobin Sodium Potassium Chloride Carbon Dioxide BUN Creatinine Glucose POC Glucose 114 H 113 H 108 H Lactic Acid Calcium Phosphorus Magnesium Direct Bilirubin AST ALT Alkaline Phosphatase Lactate Dehydrogenase Troponin T C-Reactive Protein Total Protein Albumin Prealbumin Triglycerides Cholesterol LDL Cholesterol Direct HDL Cholesterol Urine pH Urine WBC (Auto) Urine Creatinine Urine Total Protein Fluid Total Protein Vancomycin Trough Rheumatoid Factor Complement C4 Miscellaneous Test Crossmatch 11/13/16 11/15/16 11/15/16 Unknown 00:37 03:30 WBC 11.2 H RBC 2.72 L Hgb 7.6 L Hct 23.4 L MCV MCH MCHC RDW 16.5 H Plt Count Lymph % (Auto) [place] % (Auto) Lymph # [place] # Baso # Seg Neutrophils % Seg Neuts % (Manual) Lymphocytes % (Manual) Monocytes % (Manual) Eosinophils % (Manual) Basophils % (Manual) Nucleated RBC % Seg Neutrophils # Seg Neutrophils # Man Lymphocytes # (Manual) Monocytes # (Manual) Eosinophils # (Manual) PT INR Fibrinogen dRVVT Confirm Interp Factor V Activity POC ABG pH POC ABG pCO2 POC ABG pO2 ABG pO2 ABG HCO3 ABG Base Excess ABG Hemoglobin Oxyhemoglobin Sodium 135 L Potassium Chloride 95.2 L Carbon Dioxide BUN 52 H Creatinine 2.2 H Glucose POC Glucose 108 H Lactic Acid Calcium Phosphorus Magnesium Direct Bilirubin AST ALT Alkaline Phosphatase Lactate Dehydrogenase Troponin T C-Reactive Protein Total Protein Albumin Prealbumin Triglycerides Cholesterol LDL Cholesterol Direct HDL Cholesterol Urine pH Urine WBC (Auto) Urine Creatinine Urine Total Protein Fluid Total Protein Vancomycin Trough Rheumatoid Factor Complement C4 Miscellaneous Test Crossmatch 11/15/16 11/15/16 11/15/16 03:30 05:04 11:50 WBC RBC Hgb Hct MCV MCH MCHC RDW Plt Count Lymph % (Auto) [place] % (Auto) Lymph # [place] # Baso # Seg Neutrophils % Seg Neuts % (Manual) Lymphocytes % (Manual) Monocytes % (Manual) Eosinophils % (Manual) Basophils % (Manual) Nucleated RBC % Seg Neutrophils # Seg Neutrophils # Man Lymphocytes # (Manual) Monocytes # (Manual) Eosinophils # (Manual) PT INR Fibrinogen dRVVT Confirm Interp Factor V Activity POC ABG pH POC ABG pCO2 POC ABG pO2 ABG pO2 ABG HCO3 ABG Base Excess ABG Hemoglobin Oxyhemoglobin Sodium Potassium 3.4 L Chloride Carbon Dioxide BUN 25 H Creatinine 1.5 H Glucose 103 H POC Glucose 121 H 144 H Lactic Acid Calcium Phosphorus Magnesium Direct Bilirubin AST ALT Alkaline Phosphatase Lactate Dehydrogenase Troponin T C-Reactive Protein Total Protein Albumin Prealbumin Triglycerides Cholesterol LDL Cholesterol Direct HDL Cholesterol Urine pH Urine WBC (Auto) Urine Creatinine Urine Total Protein Fluid Total Protein Vancomycin Trough Rheumatoid Factor Complement C4 Miscellaneous Test Crossmatch 11/15/16 11/15/16 11/16/16 21:28 23:20 11:44 WBC RBC Hgb Hct MCV MCH MCHC RDW Plt Count Lymph % (Auto) [place] % (Auto) Lymph # [place] # Baso # Seg Neutrophils % Seg Neuts % (Manual) Lymphocytes % (Manual) Monocytes % (Manual) Eosinophils % (Manual) Basophils % (Manual) Nucleated RBC % Seg Neutrophils # Seg Neutrophils # Man Lymphocytes # (Manual) Monocytes # (Manual) Eosinophils # (Manual) PT INR Fibrinogen dRVVT Confirm Interp Factor V Activity POC ABG pH 7.462 H POC ABG pCO2 POC ABG pO2 71 L ABG pO2 ABG HCO3 ABG Base Excess ABG Hemoglobin Oxyhemoglobin Sodium Potassium Chloride Carbon Dioxide BUN Creatinine Glucose POC Glucose 116 H 133 H Lactic Acid Calcium Phosphorus Magnesium Direct Bilirubin AST ALT Alkaline Phosphatase Lactate Dehydrogenase Troponin T C-Reactive Protein Total Protein Albumin Prealbumin Triglycerides Cholesterol LDL Cholesterol Direct HDL Cholesterol Urine pH Urine WBC (Auto) Urine Creatinine Urine Total Protein Fluid Total Protein Vancomycin Trough Rheumatoid Factor Complement C4 Miscellaneous Test Crossmatch 11/16/16 11/16/16 11/16/16 12:20 17:05 23:35 WBC 11.7 H RBC 2.73 L Hgb 7.6 L Hct 23.7 L MCV MCH MCHC RDW 16.6 H Plt Count Lymph % (Auto) [place] % (Auto) Lymph # [place] # Baso # Seg Neutrophils % Seg Neuts % (Manual) Lymphocytes % (Manual) Monocytes % (Manual) Eosinophils % (Manual) Basophils % (Manual) Nucleated RBC % Seg Neutrophils # Seg Neutrophils # Man Lymphocytes # (Manual) Monocytes # (Manual) Eosinophils # (Manual) PT INR Fibrinogen dRVVT Confirm Interp Factor V Activity POC ABG pH POC ABG pCO2 POC ABG pO2 ABG pO2 ABG HCO3 ABG Base Excess ABG Hemoglobin Oxyhemoglobin Sodium Potassium Chloride Carbon Dioxide BUN Creatinine Glucose POC Glucose 154 H 125 H Lactic Acid Calcium Phosphorus Magnesium Direct Bilirubin AST ALT Alkaline Phosphatase Lactate Dehydrogenase Troponin T C-Reactive Protein Total Protein Albumin Prealbumin Triglycerides Cholesterol LDL Cholesterol Direct HDL Cholesterol Urine pH Urine WBC (Auto) Urine Creatinine Urine Total Protein Fluid Total Protein Vancomycin Trough Rheumatoid Factor Complement C4 Miscellaneous Test Crossmatch 11/17/16 11/17/16 11/17/16 03:20 03:20 03:20 WBC RBC 2.55 L Hgb 7.3 L Hct 21.9 L MCV MCH MCHC RDW 16.6 H Plt Count Lymph % (Auto) [place] % (Auto) 11.5 H Lymph # [place] # 1.1 H Baso # Seg Neutrophils % Seg Neuts % (Manual) Lymphocytes % (Manual) Monocytes % (Manual) Eosinophils % (Manual) Basophils % (Manual) Nucleated RBC % Seg Neutrophils # Seg Neutrophils # Man Lymphocytes # (Manual) Monocytes # (Manual) Eosinophils # (Manual) PT 16.8 H INR 1.37 H Fibrinogen dRVVT Confirm Interp Factor V Activity POC ABG pH POC ABG pCO2 POC ABG pO2 ABG pO2 ABG HCO3 ABG Base Excess ABG Hemoglobin Oxyhemoglobin Sodium Potassium 3.5 L Chloride Carbon Dioxide BUN 21 H Creatinine Glucose POC Glucose Lactic Acid Calcium 7.9 L Phosphorus Magnesium Direct Bilirubin AST ALT Alkaline Phosphatase Lactate Dehydrogenase Troponin T C-Reactive Protein Total Protein Albumin Prealbumin Triglycerides Cholesterol LDL Cholesterol Direct HDL Cholesterol Urine pH Urine WBC (Auto) Urine Creatinine Urine Total Protein Fluid Total Protein Vancomycin Trough Rheumatoid Factor Complement C4 Miscellaneous Test Crossmatch 11/17/16 11/17/16 11/17/16 06:34 11:21 21:22 WBC RBC Hgb Hct MCV MCH MCHC RDW Plt Count Lymph % (Auto) [place] % (Auto) Lymph # [place] # Baso # Seg Neutrophils % Seg Neuts % (Manual) Lymphocytes % (Manual) Monocytes % (Manual) Eosinophils % (Manual) Basophils % (Manual) Nucleated RBC % Seg Neutrophils # Seg Neutrophils # Man Lymphocytes # (Manual) Monocytes # (Manual) Eosinophils # (Manual) PT INR Fibrinogen dRVVT Confirm Interp Factor V Activity POC ABG pH 7.467 H POC ABG pCO2 POC ABG pO2 73 L ABG pO2 ABG HCO3 ABG Base Excess ABG Hemoglobin Oxyhemoglobin Sodium Potassium Chloride Carbon Dioxide BUN Creatinine Glucose POC Glucose 121 H 119 H Lactic Acid Calcium Phosphorus Magnesium Direct Bilirubin AST ALT Alkaline Phosphatase Lactate Dehydrogenase Troponin T C-Reactive Protein Total Protein Albumin Prealbumin Triglycerides Cholesterol LDL Cholesterol Direct HDL Cholesterol Urine pH Urine WBC (Auto) Urine Creatinine Urine Total Protein Fluid Total Protein Vancomycin Trough Rheumatoid Factor Complement C4 Miscellaneous Test Crossmatch 11/18/16 11/18/16 11/19/16 12:16 17:19 00:00 WBC RBC Hgb Hct MCV MCH MCHC RDW Plt Count Lymph % (Auto) [place] % (Auto) Lymph # [place] # Baso # Seg Neutrophils % Seg Neuts % (Manual) Lymphocytes % (Manual) Monocytes % (Manual) Eosinophils % (Manual) Basophils % (Manual) Nucleated RBC % Seg Neutrophils # Seg Neutrophils # Man Lymphocytes # (Manual) Monocytes # (Manual) Eosinophils # (Manual) PT INR Fibrinogen dRVVT Confirm Interp Factor V Activity POC ABG pH POC ABG pCO2 POC ABG pO2 ABG pO2 ABG HCO3 ABG Base Excess ABG Hemoglobin Oxyhemoglobin Sodium Potassium Chloride Carbon Dioxide BUN Creatinine Glucose POC Glucose 124 H 162 H 139 H Lactic Acid Calcium Phosphorus Magnesium Direct Bilirubin AST ALT Alkaline Phosphatase Lactate Dehydrogenase Troponin T C-Reactive Protein Total Protein Albumin Prealbumin Triglycerides Cholesterol LDL Cholesterol Direct HDL Cholesterol Urine pH Urine WBC (Auto) Urine Creatinine Urine Total Protein Fluid Total Protein Vancomycin Trough Rheumatoid Factor Complement C4 Miscellaneous Test Crossmatch 11/19/16 11/19/16 11/20/16 05:00 12:43 00:40 WBC RBC Hgb Hct MCV MCH MCHC RDW Plt Count Lymph % (Auto) [place] % (Auto) Lymph # [place] # Baso # Seg Neutrophils % Seg Neuts % (Manual) Lymphocytes % (Manual) Monocytes % (Manual) Eosinophils % (Manual) Basophils % (Manual) Nucleated RBC % Seg Neutrophils # Seg Neutrophils # Man Lymphocytes # (Manual) Monocytes # (Manual) Eosinophils # (Manual) PT INR Fibrinogen dRVVT Confirm Interp Factor V Activity POC ABG pH POC ABG pCO2 POC ABG pO2 ABG pO2 ABG HCO3 ABG Base Excess ABG Hemoglobin Oxyhemoglobin Sodium Potassium Chloride Carbon Dioxide BUN Creatinine Glucose POC Glucose 110 H 125 H 136 H Lactic Acid Calcium Phosphorus Magnesium Direct Bilirubin AST ALT Alkaline Phosphatase Lactate Dehydrogenase Troponin T C-Reactive Protein Total Protein Albumin Prealbumin Triglycerides Cholesterol LDL Cholesterol Direct HDL Cholesterol Urine pH Urine WBC (Auto) Urine Creatinine Urine Total Protein Fluid Total Protein Vancomycin Trough Rheumatoid Factor Complement C4 Miscellaneous Test Crossmatch 11/20/16 11/20/16 11/20/16 05:00 05:00 05:51 WBC 13.1 H RBC 2.74 L Hgb 7.7 L Hct 23.6 L MCV MCH MCHC RDW 16.9 H Plt Count Lymph % (Auto) [place] % (Auto) 10.8 H Lymph # [place] # 1.4 H Baso # Seg Neutrophils % Seg Neuts % (Manual) Lymphocytes % (Manual) Monocytes % (Manual) Eosinophils % (Manual) Basophils % (Manual) Nucleated RBC % Seg Neutrophils # 7.9 H Seg Neutrophils # Man Lymphocytes # (Manual) Monocytes # (Manual) Eosinophils # (Manual) PT INR Fibrinogen dRVVT Confirm Interp Factor V Activity POC ABG pH POC ABG pCO2 POC ABG pO2 ABG pO2 ABG HCO3 ABG Base Excess ABG Hemoglobin Oxyhemoglobin Sodium Potassium Chloride Carbon Dioxide BUN 31 H Creatinine 1.8 H Glucose 129 H POC Glucose 133 H Lactic Acid Calcium Phosphorus Magnesium Direct Bilirubin AST ALT Alkaline Phosphatase Lactate Dehydrogenase Troponin T C-Reactive Protein Total Protein Albumin Prealbumin Triglycerides Cholesterol LDL Cholesterol Direct HDL Cholesterol Urine pH Urine WBC (Auto) Urine Creatinine Urine Total Protein Fluid Total Protein Vancomycin Trough Rheumatoid Factor Complement C4 Miscellaneous Test Crossmatch 11/20/16 11/20/16 11/21/16 12:40 18:10 01:20 WBC RBC Hgb Hct MCV MCH MCHC RDW Plt Count Lymph % (Auto) [place] % (Auto) Lymph # [place] # Baso # Seg Neutrophils % Seg Neuts % (Manual) Lymphocytes % (Manual) Monocytes % (Manual) Eosinophils % (Manual) Basophils % (Manual) Nucleated RBC % Seg Neutrophils # Seg Neutrophils # Man Lymphocytes # (Manual) Monocytes # (Manual) Eosinophils # (Manual) PT INR Fibrinogen dRVVT Confirm Interp Factor V Activity POC ABG pH POC ABG pCO2 POC ABG pO2 ABG pO2 ABG HCO3 ABG Base Excess ABG Hemoglobin Oxyhemoglobin Sodium Potassium Chloride Carbon Dioxide BUN Creatinine Glucose POC Glucose 134 H 138 H 136 H Lactic Acid Calcium Phosphorus Magnesium Direct Bilirubin AST ALT Alkaline Phosphatase Lactate Dehydrogenase Troponin T C-Reactive Protein Total Protein Albumin Prealbumin Triglycerides Cholesterol LDL Cholesterol Direct HDL Cholesterol Urine pH Urine WBC (Auto) Urine Creatinine Urine Total Protein Fluid Total Protein Vancomycin Trough Rheumatoid Factor Complement C4 Miscellaneous Test Crossmatch 11/21/16 11/21/16 11/21/16 07:04 07:45 07:45 WBC 22.0 H RBC 2.91 L Hgb 8.2 L Hct 25.4 L MCV MCH MCHC RDW 17.1 H Plt Count Lymph % (Auto) [place] % (Auto) Lymph # [place] # Baso # Seg Neutrophils % Seg Neuts % (Manual) Lymphocytes % (Manual) 8.0 L Monocytes % (Manual) Eosinophils % (Manual) Basophils % (Manual) Nucleated RBC % Seg Neutrophils # Seg Neutrophils # Man 14.7 H Lymphocytes # (Manual) Monocytes # (Manual) 1.1 H Eosinophils # (Manual) PT INR Fibrinogen dRVVT Confirm Interp Factor V Activity POC ABG pH POC ABG pCO2 POC ABG pO2 ABG pO2 ABG HCO3 ABG Base Excess ABG Hemoglobin Oxyhemoglobin Sodium Potassium Chloride Carbon Dioxide BUN 42 H Creatinine 2.0 H Glucose POC Glucose 108 H Lactic Acid Calcium Phosphorus Magnesium Direct Bilirubin AST ALT Alkaline Phosphatase Lactate Dehydrogenase Troponin T C-Reactive Protein Total Protein Albumin Prealbumin Triglycerides Cholesterol LDL Cholesterol Direct HDL Cholesterol Urine pH Urine WBC (Auto) Urine Creatinine Urine Total Protein Fluid Total Protein Vancomycin Trough Rheumatoid Factor Complement C4 Miscellaneous Test Crossmatch 11/21/16 11/21/16 11/21/16 08:38 10:09 11:20 WBC RBC Hgb Hct MCV MCH MCHC RDW Plt Count Lymph % (Auto) [place] % (Auto) Lymph # [place] # Baso # Seg Neutrophils % Seg Neuts % (Manual) Lymphocytes % (Manual) Monocytes % (Manual) Eosinophils % (Manual) Basophils % (Manual) Nucleated RBC % Seg Neutrophils # Seg Neutrophils # Man Lymphocytes # (Manual) Monocytes # (Manual) Eosinophils # (Manual) PT INR Fibrinogen dRVVT Confirm Interp Factor V Activity POC ABG pH 7.346 L POC ABG pCO2 34.4 L POC ABG pO2 314 H ABG pO2 ABG HCO3 ABG Base Excess ABG Hemoglobin Oxyhemoglobin Sodium Potassium Chloride Carbon Dioxide BUN Creatinine Glucose POC Glucose 195 H 153 H Lactic Acid Calcium Phosphorus Magnesium Direct Bilirubin AST ALT Alkaline Phosphatase Lactate Dehydrogenase Troponin T C-Reactive Protein Total Protein Albumin Prealbumin Triglycerides Cholesterol LDL Cholesterol Direct HDL Cholesterol Urine pH Urine WBC (Auto) Urine Creatinine Urine Total Protein Fluid Total Protein Vancomycin Trough Rheumatoid Factor Complement C4 Miscellaneous Test Crossmatch 11/21/16 11/22/16 11/22/16 23:37 04:48 05:00 WBC 29.7 H RBC 2.73 L Hgb 7.5 L Hct 24.2 L MCV MCH 27 L MCHC RDW 17.4 H Plt Count Lymph % (Auto) [place] % (Auto) Lymph # [place] # Baso # Seg Neutrophils % Seg Neuts % (Manual) Lymphocytes % (Manual) 7.0 L Monocytes % (Manual) Eosinophils % (Manual) Basophils % (Manual) Nucleated RBC % Seg Neutrophils # Seg Neutrophils # Man 15.4 H Lymphocytes # (Manual) Monocytes # (Manual) Eosinophils # (Manual) PT INR Fibrinogen dRVVT Confirm Interp Factor V Activity POC ABG pH POC ABG pCO2 24.6 L POC ABG pO2 189 H ABG pO2 ABG HCO3 ABG Base Excess ABG Hemoglobin Oxyhemoglobin Sodium Potassium Chloride Carbon Dioxide BUN Creatinine Glucose POC Glucose 65 L Lactic Acid Calcium Phosphorus Magnesium Direct Bilirubin AST ALT Alkaline Phosphatase Lactate Dehydrogenase Troponin T C-Reactive Protein Total Protein Albumin Prealbumin Triglycerides Cholesterol LDL Cholesterol Direct HDL Cholesterol Urine pH Urine WBC (Auto) Urine Creatinine Urine Total Protein Fluid Total Protein Vancomycin Trough Rheumatoid Factor Complement C4 Miscellaneous Test Crossmatch 11/22/16 11/23/16 11/23/16 05:00 03:44 04:06 WBC RBC 2.52 L Hgb 7.2 L Hct 21.5 L MCV MCH MCHC RDW 17.1 H Plt Count Lymph % (Auto) [place] % (Auto) 12.4 H Lymph # [place] # 1.4 H Baso # Seg Neutrophils % Seg Neuts % (Manual) Lymphocytes % (Manual) Monocytes % (Manual) Eosinophils % (Manual) Basophils % (Manual) Nucleated RBC % Seg Neutrophils # Seg Neutrophils # Man Lymphocytes # (Manual) Monocytes # (Manual) Eosinophils # (Manual) PT INR Fibrinogen dRVVT Confirm Interp Factor V Activity POC ABG pH 7.493 H POC ABG pCO2 29.5 L POC ABG pO2 49 L ABG pO2 ABG HCO3 ABG Base Excess ABG Hemoglobin Oxyhemoglobin Sodium 134 L Potassium Chloride 95.9 L Carbon Dioxide 14 L D BUN 51 H Creatinine 2.6 H Glucose POC Glucose Lactic Acid Calcium Phosphorus Magnesium Direct Bilirubin AST ALT Alkaline Phosphatase Lactate Dehydrogenase Troponin T C-Reactive Protein Total Protein Albumin Prealbumin Triglycerides Cholesterol LDL Cholesterol Direct HDL Cholesterol Urine pH Urine WBC (Auto) Urine Creatinine Urine Total Protein Fluid Total Protein Vancomycin Trough Rheumatoid Factor Complement C4 Miscellaneous Test Crossmatch 11/23/16 11/23/16 11/24/16 04:06 11:29 06:39 WBC RBC Hgb Hct MCV MCH MCHC RDW Plt Count Lymph % (Auto) [place] % (Auto) Lymph # [place] # Baso # Seg Neutrophils % Seg Neuts % (Manual) Lymphocytes % (Manual) Monocytes % (Manual) Eosinophils % (Manual) Basophils % (Manual) Nucleated RBC % Seg Neutrophils # Seg Neutrophils # Man Lymphocytes # (Manual) Monocytes # (Manual) Eosinophils # (Manual) PT INR Fibrinogen dRVVT Confirm Interp Factor V Activity POC ABG pH POC ABG pCO2 POC ABG pO2 ABG pO2 ABG HCO3 ABG Base Excess ABG Hemoglobin Oxyhemoglobin Sodium 136 L Potassium Chloride 95.2 L Carbon Dioxide BUN 60 H Creatinine 2.9 H Glucose POC Glucose 69 L 305 H Lactic Acid Calcium Phosphorus Magnesium 1.60 L Direct Bilirubin AST ALT Alkaline Phosphatase Lactate Dehydrogenase Troponin T C-Reactive Protein Total Protein Albumin Prealbumin Triglycerides Cholesterol LDL Cholesterol Direct HDL Cholesterol Urine pH Urine WBC (Auto) Urine Creatinine Urine Total Protein Fluid Total Protein Vancomycin Trough Rheumatoid Factor Complement C4 Miscellaneous Test Crossmatch 11/24/16 11/24/16 11/24/16 06:43 08:08 08:08 WBC 11.2 H RBC 2.47 L Hgb 6.8 L Hct 20.6 L MCV MCH MCHC RDW 17.0 H Plt Count Lymph % (Auto) [place] % (Auto) 10.3 H Lymph # [place] # 1.2 H Baso # Seg Neutrophils % Seg Neuts % (Manual) Lymphocytes % (Manual) Monocytes % (Manual) Eosinophils % (Manual) Basophils % (Manual) Nucleated RBC % Seg Neutrophils # Seg Neutrophils # Man Lymphocytes # (Manual) Monocytes # (Manual) Eosinophils # (Manual) PT INR Fibrinogen dRVVT Confirm Interp Factor V Activity POC ABG pH POC ABG pCO2 POC ABG pO2 ABG pO2 ABG HCO3 ABG Base Excess ABG Hemoglobin Oxyhemoglobin Sodium 135 L Potassium Chloride 96.3 L Carbon Dioxide BUN 61 H Creatinine 3.1 H Glucose POC Glucose 62 L Lactic Acid Calcium 8.2 L Phosphorus Magnesium Direct Bilirubin AST ALT Alkaline Phosphatase Lactate Dehydrogenase Troponin T C-Reactive Protein Total Protein Albumin Prealbumin Triglycerides Cholesterol LDL Cholesterol Direct HDL Cholesterol Urine pH Urine WBC (Auto) Urine Creatinine Urine Total Protein Fluid Total Protein Vancomycin Trough Rheumatoid Factor Complement C4 Miscellaneous Test Crossmatch 11/24/16 11/24/16 11/24/16 08:34 11:20 12:41 WBC RBC Hgb Hct MCV MCH MCHC RDW Plt Count Lymph % (Auto) [place] % (Auto) Lymph # [place] # Baso # Seg Neutrophils % Seg Neuts % (Manual) Lymphocytes % (Manual) Monocytes % (Manual) Eosinophils % (Manual) Basophils % (Manual) Nucleated RBC % Seg Neutrophils # Seg Neutrophils # Man Lymphocytes # (Manual) Monocytes # (Manual) Eosinophils # (Manual) PT INR Fibrinogen dRVVT Confirm Interp Factor V Activity POC ABG pH POC ABG pCO2 POC ABG pO2 ABG pO2 ABG HCO3 ABG Base Excess ABG Hemoglobin Oxyhemoglobin Sodium Potassium Chloride Carbon Dioxide BUN Creatinine Glucose POC Glucose 108 H Lactic Acid Calcium Phosphorus Magnesium 1.60 L Direct Bilirubin AST ALT Alkaline Phosphatase Lactate Dehydrogenase Troponin T C-Reactive Protein Total Protein Albumin Prealbumin Triglycerides Cholesterol LDL Cholesterol Direct HDL Cholesterol Urine pH Urine WBC (Auto) Urine Creatinine Urine Total Protein Fluid Total Protein Vancomycin Trough Rheumatoid Factor Complement C4 Miscellaneous Test Crossmatch See Detail 11/25/16 11/25/16 11/25/16 00:03 04:42 04:42 WBC RBC 3.03 L Hgb 8.6 L Hct 25.3 L MCV MCH MCHC RDW 16.2 H Plt Count Lymph % (Auto) [place] % (Auto) 8.1 H Lymph # [place] # Baso # Seg Neutrophils % 71.3 H Seg Neuts % (Manual) Lymphocytes % (Manual) Monocytes % (Manual) Eosinophils % (Manual) Basophils % (Manual) Nucleated RBC % Seg Neutrophils # Seg Neutrophils # Man Lymphocytes # (Manual) Monocytes # (Manual) Eosinophils # (Manual) PT INR Fibrinogen dRVVT Confirm Interp Factor V Activity POC ABG pH POC ABG pCO2 POC ABG pO2 ABG pO2 ABG HCO3 ABG Base Excess ABG Hemoglobin Oxyhemoglobin Sodium Potassium Chloride Carbon Dioxide BUN 61 H Creatinine 3.0 H Glucose 102 H POC Glucose 113 H Lactic Acid Calcium 8.2 L Phosphorus Magnesium Direct Bilirubin AST ALT Alkaline Phosphatase 142 H Lactate Dehydrogenase Troponin T C-Reactive Protein Total Protein 5.7 L Albumin 1.5 L Prealbumin Triglycerides Cholesterol LDL Cholesterol Direct HDL Cholesterol Urine pH Urine WBC (Auto) Urine Creatinine Urine Total Protein Fluid Total Protein Vancomycin Trough Rheumatoid Factor Complement C4 Miscellaneous Test Crossmatch 11/25/16 11/25/16 11/25/16 05:12 11:31 14:12 WBC RBC Hgb Hct MCV MCH MCHC RDW Plt Count Lymph % (Auto) [place] % (Auto) Lymph # [place] # Baso # Seg Neutrophils % Seg Neuts % (Manual) Lymphocytes % (Manual) Monocytes % (Manual) Eosinophils % (Manual) Basophils % (Manual) Nucleated RBC % Seg Neutrophils # Seg Neutrophils # Man Lymphocytes # (Manual) Monocytes # (Manual) Eosinophils # (Manual) PT INR Fibrinogen dRVVT Confirm Interp Factor V Activity POC ABG pH 7.487 H POC ABG pCO2 POC ABG pO2 153 H ABG pO2 ABG HCO3 ABG Base Excess ABG Hemoglobin Oxyhemoglobin Sodium Potassium Chloride Carbon Dioxide BUN Creatinine Glucose POC Glucose 131 H 140 H Lactic Acid Calcium Phosphorus Magnesium Direct Bilirubin AST ALT Alkaline Phosphatase Lactate Dehydrogenase Troponin T C-Reactive Protein Total Protein Albumin Prealbumin Triglycerides Cholesterol LDL Cholesterol Direct HDL Cholesterol Urine pH Urine WBC (Auto) Urine Creatinine Urine Total Protein Fluid Total Protein Vancomycin Trough Rheumatoid Factor Complement C4 Miscellaneous Test Crossmatch 11/25/16 11/26/16 11/26/16 17:23 00:09 05:13 WBC RBC 2.94 L Hgb 8.4 L Hct 24.6 L MCV MCH MCHC RDW 16.4 H Plt Count Lymph % (Auto) [place] % (Auto) 12.3 H Lymph # [place] # 1.1 H Baso # Seg Neutrophils % Seg Neuts % (Manual) Lymphocytes % (Manual) Monocytes % (Manual) Eosinophils % (Manual) Basophils % (Manual) Nucleated RBC % Seg Neutrophils # Seg Neutrophils # Man Lymphocytes # (Manual) Monocytes # (Manual) Eosinophils # (Manual) PT INR Fibrinogen dRVVT Confirm Interp Factor V Activity POC ABG pH POC ABG pCO2 POC ABG pO2 ABG pO2 ABG HCO3 ABG Base Excess ABG Hemoglobin Oxyhemoglobin Sodium Potassium Chloride Carbon Dioxide BUN Creatinine Glucose POC Glucose 146 H 112 H Lactic Acid Calcium Phosphorus Magnesium Direct Bilirubin AST ALT Alkaline Phosphatase Lactate Dehydrogenase Troponin T C-Reactive Protein Total Protein Albumin Prealbumin Triglycerides Cholesterol LDL Cholesterol Direct HDL Cholesterol Urine pH Urine WBC (Auto) Urine Creatinine Urine Total Protein Fluid Total Protein Vancomycin Trough Rheumatoid Factor Complement C4 Miscellaneous Test Crossmatch 11/26/16 11/26/16 11/26/16 05:13 05:28 11:53 WBC RBC Hgb Hct MCV MCH MCHC RDW Plt Count Lymph % (Auto) [place] % (Auto) Lymph # [place] # Baso # Seg Neutrophils % Seg Neuts % (Manual) Lymphocytes % (Manual) Monocytes % (Manual) Eosinophils % (Manual) Basophils % (Manual) Nucleated RBC % Seg Neutrophils # Seg Neutrophils # Man Lymphocytes # (Manual) Monocytes # (Manual) Eosinophils # (Manual) PT INR Fibrinogen dRVVT Confirm Interp Factor V Activity POC ABG pH POC ABG pCO2 POC ABG pO2 ABG pO2 ABG HCO3 ABG Base Excess ABG Hemoglobin Oxyhemoglobin Sodium Potassium Chloride 97.8 L Carbon Dioxide BUN 37 H Creatinine 2.0 H Glucose 109 H POC Glucose 117 H 111 H Lactic Acid Calcium 7.9 L Phosphorus 1.80 L D Magnesium Direct Bilirubin AST ALT Alkaline Phosphatase Lactate Dehydrogenase Troponin T C-Reactive Protein Total Protein Albumin Prealbumin Triglycerides Cholesterol LDL Cholesterol Direct HDL Cholesterol Urine pH Urine WBC (Auto) Urine Creatinine Urine Total Protein Fluid Total Protein Vancomycin Trough Rheumatoid Factor Complement C4 Miscellaneous Test Crossmatch 11/26/16 11/27/16 11/27/16 17:14 04:50 06:02 WBC RBC Hgb Hct MCV MCH MCHC RDW Plt Count Lymph % (Auto) [place] % (Auto) Lymph # [place] # Baso # Seg Neutrophils % Seg Neuts % (Manual) Lymphocytes % (Manual) Monocytes % (Manual) Eosinophils % (Manual) Basophils % (Manual) Nucleated RBC % Seg Neutrophils # Seg Neutrophils # Man Lymphocytes # (Manual) Monocytes # (Manual) Eosinophils # (Manual) PT INR Fibrinogen dRVVT Confirm Interp Factor V Activity POC ABG pH POC ABG pCO2 POC ABG pO2 ABG pO2 75.2 L ABG HCO3 26.4 H ABG Base Excess ABG Hemoglobin 7.6 L Oxyhemoglobin 94.8 L Sodium Potassium Chloride Carbon Dioxide BUN 49 H Creatinine 2.3 H Glucose POC Glucose 115 H Lactic Acid Calcium Phosphorus 1.50 L Magnesium Direct Bilirubin AST ALT Alkaline Phosphatase Lactate Dehydrogenase Troponin T C-Reactive Protein Total Protein Albumin Prealbumin Triglycerides Cholesterol LDL Cholesterol Direct HDL Cholesterol Urine pH Urine WBC (Auto) Urine Creatinine Urine Total Protein Fluid Total Protein Vancomycin Trough Rheumatoid Factor Complement C4 Miscellaneous Test Crossmatch 11/27/16 11/27/16 11/27/16 06:02 11:25 17:25 WBC 11.6 H RBC 2.75 L Hgb 7.6 L Hct 23.4 L MCV MCH MCHC RDW 16.5 H Plt Count Lymph % (Auto) [place] % (Auto) Lymph # [place] # Baso # Seg Neutrophils % Seg Neuts % (Manual) Lymphocytes % (Manual) Monocytes % (Manual) Eosinophils % (Manual) Basophils % (Manual) Nucleated RBC % Seg Neutrophils # Seg Neutrophils # Man Lymphocytes # (Manual) Monocytes # (Manual) Eosinophils # (Manual) PT INR Fibrinogen dRVVT Confirm Interp Factor V Activity POC ABG pH POC ABG pCO2 POC ABG pO2 ABG pO2 ABG HCO3 ABG Base Excess ABG Hemoglobin Oxyhemoglobin Sodium Potassium Chloride Carbon Dioxide BUN Creatinine Glucose POC Glucose 114 H 126 H Lactic Acid Calcium Phosphorus Magnesium Direct Bilirubin AST ALT Alkaline Phosphatase Lactate Dehydrogenase Troponin T C-Reactive Protein Total Protein Albumin Prealbumin Triglycerides Cholesterol LDL Cholesterol Direct HDL Cholesterol Urine pH Urine WBC (Auto) Urine Creatinine Urine Total Protein Fluid Total Protein Vancomycin Trough Rheumatoid Factor Complement C4 Miscellaneous Test Crossmatch 11/28/16 11/28/16 11/28/16 04:45 05:33 05:44 WBC RBC Hgb Hct MCV MCH MCHC RDW Plt Count Lymph % (Auto) [place] % (Auto) Lymph # [place] # Baso # Seg Neutrophils % Seg Neuts % (Manual) Lymphocytes % (Manual) Monocytes % (Manual) Eosinophils % (Manual) Basophils % (Manual) Nucleated RBC % Seg Neutrophils # Seg Neutrophils # Man Lymphocytes # (Manual) Monocytes # (Manual) Eosinophils # (Manual) PT INR Fibrinogen dRVVT Confirm Interp Factor V Activity POC ABG pH POC ABG pCO2 POC ABG pO2 ABG pO2 99.3 H ABG HCO3 ABG Base Excess ABG Hemoglobin 8.3 L Oxyhemoglobin Sodium Potassium Chloride Carbon Dioxide BUN 63 H Creatinine 2.4 H Glucose 102 H POC Glucose 108 H Lactic Acid Calcium Phosphorus 1.80 L Magnesium Direct Bilirubin AST ALT Alkaline Phosphatase Lactate Dehydrogenase Troponin T C-Reactive Protein Total Protein Albumin Prealbumin Triglycerides Cholesterol LDL Cholesterol Direct HDL Cholesterol Urine pH Urine WBC (Auto) Urine Creatinine Urine Total Protein Fluid Total Protein Vancomycin Trough Rheumatoid Factor Complement C4 Miscellaneous Test Crossmatch 11/28/16 11/28/16 11/28/16 12:31 16:09 23:46 WBC RBC Hgb Hct MCV MCH MCHC RDW Plt Count Lymph % (Auto) [place] % (Auto) Lymph # [place] # Baso # Seg Neutrophils % Seg Neuts % (Manual) Lymphocytes % (Manual) Monocytes % (Manual) Eosinophils % (Manual) Basophils % (Manual) Nucleated RBC % Seg Neutrophils # Seg Neutrophils # Man Lymphocytes # (Manual) Monocytes # (Manual) Eosinophils # (Manual) PT INR Fibrinogen dRVVT Confirm Interp Factor V Activity POC ABG pH POC ABG pCO2 POC ABG pO2 ABG pO2 ABG HCO3 ABG Base Excess ABG Hemoglobin Oxyhemoglobin Sodium Potassium Chloride Carbon Dioxide BUN Creatinine Glucose POC Glucose 126 H 111 H 119 H Lactic Acid Calcium Phosphorus Magnesium Direct Bilirubin AST ALT Alkaline Phosphatase Lactate Dehydrogenase Troponin T C-Reactive Protein Total Protein Albumin Prealbumin Triglycerides Cholesterol LDL Cholesterol Direct HDL Cholesterol Urine pH Urine WBC (Auto) Urine Creatinine Urine Total Protein Fluid Total Protein Vancomycin Trough Rheumatoid Factor Complement C4 Miscellaneous Test Crossmatch 11/29/16 11/29/16 11/29/16 03:33 04:52 05:10 WBC RBC Hgb Hct MCV MCH MCHC RDW Plt Count Lymph % (Auto) [place] % (Auto) Lymph # [place] # Baso # Seg Neutrophils % Seg Neuts % (Manual) Lymphocytes % (Manual) Monocytes % (Manual) Eosinophils % (Manual) Basophils % (Manual) Nucleated RBC % Seg Neutrophils # Seg Neutrophils # Man Lymphocytes # (Manual) Monocytes # (Manual) Eosinophils # (Manual) PT INR Fibrinogen dRVVT Confirm Interp Factor V Activity POC ABG pH POC ABG pCO2 POC ABG pO2 ABG pO2 ABG HCO3 ABG Base Excess ABG Hemoglobin 7.0 L Oxyhemoglobin 94.9 L Sodium Potassium Chloride Carbon Dioxide BUN 73 H Creatinine 2.7 H Glucose POC Glucose 108 H Lactic Acid Calcium Phosphorus Magnesium Direct Bilirubin AST ALT Alkaline Phosphatase Lactate Dehydrogenase Troponin T C-Reactive Protein Total Protein Albumin Prealbumin Triglycerides Cholesterol LDL Cholesterol Direct HDL Cholesterol Urine pH Urine WBC (Auto) Urine Creatinine Urine Total Protein Fluid Total Protein Vancomycin Trough Rheumatoid Factor Complement C4 Miscellaneous Test Crossmatch 11/29/16 11/29/16 11/29/16 12:16 18:05 23:46 WBC RBC Hgb Hct MCV MCH MCHC RDW Plt Count Lymph % (Auto) [place] % (Auto) Lymph # [place] # Baso # Seg Neutrophils % Seg Neuts % (Manual) Lymphocytes % (Manual) Monocytes % (Manual) Eosinophils % (Manual) Basophils % (Manual) Nucleated RBC % Seg Neutrophils # Seg Neutrophils # Man Lymphocytes # (Manual) Monocytes # (Manual) Eosinophils # (Manual) PT INR Fibrinogen dRVVT Confirm Interp Factor V Activity POC ABG pH POC ABG pCO2 POC ABG pO2 ABG pO2 ABG HCO3 ABG Base Excess ABG Hemoglobin Oxyhemoglobin Sodium Potassium Chloride Carbon Dioxide BUN Creatinine Glucose POC Glucose 133 H 146 H 141 H Lactic Acid Calcium Phosphorus Magnesium Direct Bilirubin AST ALT Alkaline Phosphatase Lactate Dehydrogenase Troponin T C-Reactive Protein Total Protein Albumin Prealbumin Triglycerides Cholesterol LDL Cholesterol Direct HDL Cholesterol Urine pH Urine WBC (Auto) Urine Creatinine Urine Total Protein Fluid Total Protein Vancomycin Trough Rheumatoid Factor Complement C4 Miscellaneous Test Crossmatch 11/30/16 11/30/16 11/30/16 04:17 04:17 04:32 WBC 12.0 H RBC 2.80 L Hgb 7.8 L Hct 23.6 L MCV MCH MCHC RDW 16.6 H Plt Count Lymph % (Auto) [place] % (Auto) 11.3 H Lymph # [place] # 1.4 H Baso # Seg Neutrophils % Seg Neuts % (Manual) Lymphocytes % (Manual) Monocytes % (Manual) Eosinophils % (Manual) Basophils % (Manual) Nucleated RBC % Seg Neutrophils # 8.2 H Seg Neutrophils # Man Lymphocytes # (Manual) Monocytes # (Manual) Eosinophils # (Manual) PT INR Fibrinogen dRVVT Confirm Interp Factor V Activity POC ABG pH POC ABG pCO2 POC ABG pO2 ABG pO2 ABG HCO3 ABG Base Excess ABG Hemoglobin Oxyhemoglobin Sodium 169 H* D Potassium 5.1 H Chloride 121.5 H Carbon Dioxide BUN 34 H Creatinine 1.3 H D Glucose 133 H POC Glucose 131 H Lactic Acid Calcium 10.3 H Phosphorus Magnesium Direct Bilirubin AST ALT Alkaline Phosphatase Lactate Dehydrogenase Troponin T C-Reactive Protein Total Protein Albumin Prealbumin Triglycerides Cholesterol LDL Cholesterol Direct HDL Cholesterol Urine pH Urine WBC (Auto) Urine Creatinine Urine Total Protein Fluid Total Protein Vancomycin Trough Rheumatoid Factor Complement C4 Miscellaneous Test Crossmatch 11/30/16 11/30/16 11/30/16 05:45 11:10 17:26 WBC RBC Hgb Hct MCV MCH MCHC RDW Plt Count Lymph % (Auto) [place] % (Auto) Lymph # [place] # Baso # Seg Neutrophils % Seg Neuts % (Manual) Lymphocytes % (Manual) Monocytes % (Manual) Eosinophils % (Manual) Basophils % (Manual) Nucleated RBC % Seg Neutrophils # Seg Neutrophils # Man Lymphocytes # (Manual) Monocytes # (Manual) Eosinophils # (Manual) PT INR Fibrinogen dRVVT Confirm Interp Factor V Activity POC ABG pH POC ABG pCO2 POC ABG pO2 ABG pO2 ABG HCO3 ABG Base Excess ABG Hemoglobin Oxyhemoglobin Sodium Potassium Chloride Carbon Dioxide BUN 45 H Creatinine 1.6 H Glucose 131 H POC Glucose 146 H 134 H Lactic Acid Calcium Phosphorus Magnesium Direct Bilirubin AST ALT Alkaline Phosphatase Lactate Dehydrogenase Troponin T C-Reactive Protein Total Protein Albumin Prealbumin Triglycerides Cholesterol LDL Cholesterol Direct HDL Cholesterol Urine pH Urine WBC (Auto) Urine Creatinine Urine Total Protein Fluid Total Protein Vancomycin Trough Rheumatoid Factor Complement C4 Miscellaneous Test Crossmatch 11/30/16 12/01/16 12/01/16 23:35 00:06 03:35 WBC RBC Hgb Hct MCV MCH MCHC RDW Plt Count Lymph % (Auto) [place] % (Auto) Lymph # [place] # Baso # Seg Neutrophils % Seg Neuts % (Manual) Lymphocytes % (Manual) Monocytes % (Manual) Eosinophils % (Manual) Basophils % (Manual) Nucleated RBC % Seg Neutrophils # Seg Neutrophils # Man Lymphocytes # (Manual) Monocytes # (Manual) Eosinophils # (Manual) PT INR Fibrinogen dRVVT Confirm Interp Factor V Activity POC ABG pH POC ABG pCO2 POC ABG pO2 ABG pO2 ABG HCO3 ABG Base Excess ABG Hemoglobin 6.9 L Oxyhemoglobin Sodium Potassium Chloride Carbon Dioxide BUN 58 H Creatinine 1.8 H Glucose 146 H POC Glucose 151 H Lactic Acid Calcium Phosphorus Magnesium Direct Bilirubin AST ALT Alkaline Phosphatase Lactate Dehydrogenase Troponin T C-Reactive Protein Total Protein Albumin Prealbumin Triglycerides Cholesterol LDL Cholesterol Direct HDL Cholesterol Urine pH Urine WBC (Auto) Urine Creatinine Urine Total Protein Fluid Total Protein Vancomycin Trough Rheumatoid Factor Complement C4 Miscellaneous Test Crossmatch 12/01/16 12/01/16 12/01/16 03:35 05:47 11:52 WBC 12.3 H RBC 2.82 L Hgb 7.8 L Hct 23.7 L MCV MCH MCHC RDW 16.7 H Plt Count Lymph % (Auto) [place] % (Auto) 9.8 H Lymph # [place] # 1.2 H Baso # Seg Neutrophils % Seg Neuts % (Manual) Lymphocytes % (Manual) Monocytes % (Manual) Eosinophils % (Manual) Basophils % (Manual) Nucleated RBC % Seg Neutrophils # 8.4 H Seg Neutrophils # Man Lymphocytes # (Manual) Monocytes # (Manual) Eosinophils # (Manual) PT INR Fibrinogen dRVVT Confirm Interp Factor V Activity POC ABG pH POC ABG pCO2 POC ABG pO2 ABG pO2 ABG HCO3 ABG Base Excess ABG Hemoglobin Oxyhemoglobin Sodium Potassium Chloride Carbon Dioxide BUN Creatinine Glucose POC Glucose 152 H 152 H Lactic Acid Calcium Phosphorus Magnesium Direct Bilirubin AST ALT Alkaline Phosphatase Lactate Dehydrogenase Troponin T C-Reactive Protein Total Protein Albumin Prealbumin Triglycerides Cholesterol LDL Cholesterol Direct HDL Cholesterol Urine pH Urine WBC (Auto) Urine Creatinine Urine Total Protein Fluid Total Protein Vancomycin Trough Rheumatoid Factor Complement C4 Miscellaneous Test Crossmatch 12/01/16 12/01/16 12/02/16 17:40 23:41 05:00 WBC RBC Hgb Hct MCV MCH MCHC RDW Plt Count Lymph % (Auto) [place] % (Auto) Lymph # [place] # Baso # Seg Neutrophils % Seg Neuts % (Manual) Lymphocytes % (Manual) Monocytes % (Manual) Eosinophils % (Manual) Basophils % (Manual) Nucleated RBC % Seg Neutrophils # Seg Neutrophils # Man Lymphocytes # (Manual) Monocytes # (Manual) Eosinophils # (Manual) PT INR Fibrinogen dRVVT Confirm Interp Factor V Activity POC ABG pH POC ABG pCO2 POC ABG pO2 ABG pO2 ABG HCO3 ABG Base Excess ABG Hemoglobin Oxyhemoglobin Sodium Potassium Chloride Carbon Dioxide BUN 45 H Creatinine Glucose 115 H POC Glucose 140 H 144 H Lactic Acid Calcium Phosphorus Magnesium Direct Bilirubin AST ALT Alkaline Phosphatase Lactate Dehydrogenase Troponin T C-Reactive Protein Total Protein Albumin Prealbumin Triglycerides Cholesterol LDL Cholesterol Direct HDL Cholesterol Urine pH Urine WBC (Auto) Urine Creatinine Urine Total Protein Fluid Total Protein Vancomycin Trough Rheumatoid Factor Complement C4 Miscellaneous Test Crossmatch 12/02/16 12/02/16 12/02/16 05:31 11:20 17:38 WBC RBC Hgb Hct MCV MCH MCHC RDW Plt Count Lymph % (Auto) [place] % (Auto) Lymph # [place] # Baso # Seg Neutrophils % Seg Neuts % (Manual) Lymphocytes % (Manual) Monocytes % (Manual) Eosinophils % (Manual) Basophils % (Manual) Nucleated RBC % Seg Neutrophils # Seg Neutrophils # Man Lymphocytes # (Manual) Monocytes # (Manual) Eosinophils # (Manual) PT INR Fibrinogen dRVVT Confirm Interp Factor V Activity POC ABG pH POC ABG pCO2 POC ABG pO2 ABG pO2 ABG HCO3 ABG Base Excess ABG Hemoglobin Oxyhemoglobin Sodium Potassium Chloride Carbon Dioxide BUN Creatinine Glucose POC Glucose 136 H 177 H 139 H Lactic Acid Calcium Phosphorus Magnesium Direct Bilirubin AST ALT Alkaline Phosphatase Lactate Dehydrogenase Troponin T C-Reactive Protein Total Protein Albumin Prealbumin Triglycerides Cholesterol LDL Cholesterol Direct HDL Cholesterol Urine pH Urine WBC (Auto) Urine Creatinine Urine Total Protein Fluid Total Protein Vancomycin Trough Rheumatoid Factor Complement C4 Miscellaneous Test Crossmatch 12/02/16 12/03/16 12/03/16 23:43 04:00 04:00 WBC 20.4 H RBC 2.74 L Hgb 7.4 L Hct 23.6 L MCV MCH 27 L MCHC RDW 17.1 H Plt Count Lymph % (Auto) [place] % (Auto) Lymph # [place] # Baso # Seg Neutrophils % Seg Neuts % (Manual) 31.0 L Lymphocytes % (Manual) Monocytes % (Manual) Eosinophils % (Manual) Basophils % (Manual) Nucleated RBC % Seg Neutrophils # Seg Neutrophils # Man Lymphocytes # (Manual) Monocytes # (Manual) Eosinophils # (Manual) PT INR Fibrinogen dRVVT Confirm Interp Factor V Activity POC ABG pH POC ABG pCO2 POC ABG pO2 ABG pO2 ABG HCO3 ABG Base Excess ABG Hemoglobin Oxyhemoglobin Sodium Potassium Chloride Carbon Dioxide BUN 61 H Creatinine 1.6 H Glucose 119 H POC Glucose 158 H Lactic Acid Calcium Phosphorus Magnesium Direct Bilirubin AST ALT Alkaline Phosphatase Lactate Dehydrogenase Troponin T C-Reactive Protein Total Protein Albumin Prealbumin Triglycerides Cholesterol LDL Cholesterol Direct HDL Cholesterol Urine pH Urine WBC (Auto) Urine Creatinine Urine Total Protein Fluid Total Protein Vancomycin Trough Rheumatoid Factor Complement C4 Miscellaneous Test Crossmatch 12/03/16 12/03/16 12/03/16 05:02 12:11 18:16 WBC RBC Hgb Hct MCV MCH MCHC RDW Plt Count Lymph % (Auto) [place] % (Auto) Lymph # [place] # Baso # Seg Neutrophils % Seg Neuts % (Manual) Lymphocytes % (Manual) Monocytes % (Manual) Eosinophils % (Manual) Basophils % (Manual) Nucleated RBC % Seg Neutrophils # Seg Neutrophils # Man Lymphocytes # (Manual) Monocytes # (Manual) Eosinophils # (Manual) PT INR Fibrinogen dRVVT Confirm Interp Factor V Activity POC ABG pH POC ABG pCO2 POC ABG pO2 ABG pO2 ABG HCO3 ABG Base Excess ABG Hemoglobin Oxyhemoglobin Sodium Potassium Chloride Carbon Dioxide BUN Creatinine Glucose POC Glucose 146 H 157 H 124 H Lactic Acid Calcium Phosphorus Magnesium Direct Bilirubin AST ALT Alkaline Phosphatase Lactate Dehydrogenase Troponin T C-Reactive Protein Total Protein Albumin Prealbumin Triglycerides Cholesterol LDL Cholesterol Direct HDL Cholesterol Urine pH Urine WBC (Auto) Urine Creatinine Urine Total Protein Fluid Total Protein Vancomycin Trough Rheumatoid Factor Complement C4 Miscellaneous Test Crossmatch 12/03/16 12/04/16 12/04/16 23:41 04:00 04:45 WBC RBC Hgb Hct MCV MCH MCHC RDW Plt Count Lymph % (Auto) [place] % (Auto) Lymph # [place] # Baso # Seg Neutrophils % Seg Neuts % (Manual) Lymphocytes % (Manual) Monocytes % (Manual) Eosinophils % (Manual) Basophils % (Manual) Nucleated RBC % Seg Neutrophils # Seg Neutrophils # Man Lymphocytes # (Manual) Monocytes # (Manual) Eosinophils # (Manual) PT INR Fibrinogen dRVVT Confirm Interp Factor V Activity POC ABG pH POC ABG pCO2 POC ABG pO2 ABG pO2 ABG HCO3 ABG Base Excess ABG Hemoglobin Oxyhemoglobin Sodium Potassium Chloride Carbon Dioxide BUN 76 H Creatinine 1.6 H Glucose POC Glucose 130 H 136 H Lactic Acid Calcium Phosphorus Magnesium Direct Bilirubin AST ALT Alkaline Phosphatase 155 H Lactate Dehydrogenase Troponin T C-Reactive Protein Total Protein 5.5 L Albumin 1.5 L Prealbumin Triglycerides Cholesterol LDL Cholesterol Direct HDL Cholesterol Urine pH Urine WBC (Auto) Urine Creatinine Urine Total Protein Fluid Total Protein Vancomycin Trough Rheumatoid Factor Complement C4 Miscellaneous Test Crossmatch 12/04/16 12/04/16 12/05/16 12:08 17:23 00:10 WBC RBC Hgb Hct MCV MCH MCHC RDW Plt Count Lymph % (Auto) [place] % (Auto) Lymph # [place] # Baso # Seg Neutrophils % Seg Neuts % (Manual) Lymphocytes % (Manual) Monocytes % (Manual) Eosinophils % (Manual) Basophils % (Manual) Nucleated RBC % Seg Neutrophils # Seg Neutrophils # Man Lymphocytes # (Manual) Monocytes # (Manual) Eosinophils # (Manual) PT INR Fibrinogen dRVVT Confirm Interp Factor V Activity POC ABG pH POC ABG pCO2 POC ABG pO2 ABG pO2 ABG HCO3 ABG Base Excess ABG Hemoglobin Oxyhemoglobin Sodium Potassium Chloride Carbon Dioxide BUN Creatinine Glucose POC Glucose 114 H 129 H 124 H Lactic Acid Calcium Phosphorus Magnesium Direct Bilirubin AST ALT Alkaline Phosphatase Lactate Dehydrogenase Troponin T C-Reactive Protein Total Protein Albumin Prealbumin Triglycerides Cholesterol LDL Cholesterol Direct HDL Cholesterol Urine pH Urine WBC (Auto) Urine Creatinine Urine Total Protein Fluid Total Protein Vancomycin Trough Rheumatoid Factor Complement C4 Miscellaneous Test Crossmatch 12/05/16 12/05/16 12/05/16 05:00 05:00 05:18 WBC RBC Hgb Hct MCV MCH MCHC RDW Plt Count Lymph % (Auto) [place] % (Auto) Lymph # [place] # Baso # Seg Neutrophils % Seg Neuts % (Manual) Lymphocytes % (Manual) Monocytes % (Manual) Eosinophils % (Manual) Basophils % (Manual) Nucleated RBC % Seg Neutrophils # Seg Neutrophils # Man Lymphocytes # (Manual) Monocytes # (Manual) Eosinophils # (Manual) PT INR Fibrinogen dRVVT Confirm Interp Factor V Activity POC ABG pH POC ABG pCO2 POC ABG pO2 ABG pO2 ABG HCO3 ABG Base Excess ABG Hemoglobin Oxyhemoglobin Sodium Potassium Chloride Carbon Dioxide 21 L BUN 85 H Creatinine 1.9 H Glucose 131 H POC Glucose 154 H Lactic Acid Calcium Phosphorus Magnesium Direct Bilirubin AST ALT Alkaline Phosphatase Lactate Dehydrogenase Troponin T C-Reactive Protein 19.30 H Total Protein Albumin Prealbumin Triglycerides Cholesterol LDL Cholesterol Direct HDL Cholesterol Urine pH Urine WBC (Auto) Urine Creatinine Urine Total Protein Fluid Total Protein Vancomycin Trough Rheumatoid Factor Complement C4 Miscellaneous Test Crossmatch 12/05/16 12/05/16 12/05/16 11:43 17:46 23:25 WBC RBC Hgb Hct MCV MCH MCHC RDW Plt Count Lymph % (Auto) [place] % (Auto) Lymph # [place] # Baso # Seg Neutrophils % Seg Neuts % (Manual) Lymphocytes % (Manual) Monocytes % (Manual) Eosinophils % (Manual) Basophils % (Manual) Nucleated RBC % Seg Neutrophils # Seg Neutrophils # Man Lymphocytes # (Manual) Monocytes # (Manual) Eosinophils # (Manual) PT INR Fibrinogen dRVVT Confirm Interp Factor V Activity POC ABG pH POC ABG pCO2 POC ABG pO2 ABG pO2 ABG HCO3 ABG Base Excess ABG Hemoglobin Oxyhemoglobin Sodium Potassium Chloride Carbon Dioxide BUN Creatinine Glucose POC Glucose 117 H 113 H 111 H Lactic Acid Calcium Phosphorus Magnesium Direct Bilirubin AST ALT Alkaline Phosphatase Lactate Dehydrogenase Troponin T C-Reactive Protein Total Protein Albumin Prealbumin Triglycerides Cholesterol LDL Cholesterol Direct HDL Cholesterol Urine pH Urine WBC (Auto) Urine Creatinine Urine Total Protein Fluid Total Protein Vancomycin Trough Rheumatoid Factor Complement C4 Miscellaneous Test Crossmatch 12/05/16 12/06/16 12/06/16 Unknown 04:58 06:00 WBC RBC Hgb Hct MCV MCH MCHC RDW Plt Count Lymph % (Auto) [place] % (Auto) Lymph # [place] # Baso # Seg Neutrophils % Seg Neuts % (Manual) Lymphocytes % (Manual) Monocytes % (Manual) Eosinophils % (Manual) Basophils % (Manual) Nucleated RBC % Seg Neutrophils # Seg Neutrophils # Man Lymphocytes # (Manual) Monocytes # (Manual) Eosinophils # (Manual) PT INR Fibrinogen dRVVT Confirm Interp Factor V Activity POC ABG pH POC ABG pCO2 POC ABG pO2 ABG pO2 75.2 L ABG HCO3 ABG Base Excess -3.4 L ABG Hemoglobin 7.4 L Oxyhemoglobin 94.5 L Sodium Potassium Chloride Carbon Dioxide 20 L BUN 99 H Creatinine 2.1 H Glucose 126 H POC Glucose 145 H Lactic Acid Calcium Phosphorus 4.80 H Magnesium Direct Bilirubin AST ALT Alkaline Phosphatase Lactate Dehydrogenase Troponin T C-Reactive Protein Total Protein Albumin Prealbumin Triglycerides Cholesterol LDL Cholesterol Direct HDL Cholesterol Urine pH Urine WBC (Auto) Urine Creatinine Urine Total Protein Fluid Total Protein Vancomycin Trough Rheumatoid Factor Complement C4 Miscellaneous Test Crossmatch 12/06/16 12/06/16 12/06/16 06:46 11:54 17:55 WBC RBC Hgb 8.3 L Hct 26.4 L MCV MCH MCHC RDW Plt Count Lymph % (Auto) [place] % (Auto) Lymph # [place] # Baso # Seg Neutrophils % Seg Neuts % (Manual) Lymphocytes % (Manual) Monocytes % (Manual) Eosinophils % (Manual) Basophils % (Manual) Nucleated RBC % Seg Neutrophils # Seg Neutrophils # Man Lymphocytes # (Manual) Monocytes # (Manual) Eosinophils # (Manual) PT INR Fibrinogen dRVVT Confirm Interp Factor V Activity POC ABG pH POC ABG pCO2 POC ABG pO2 ABG pO2 ABG HCO3 ABG Base Excess ABG Hemoglobin Oxyhemoglobin Sodium Potassium Chloride Carbon Dioxide BUN Creatinine Glucose POC Glucose 126 H 157 H Lactic Acid Calcium Phosphorus Magnesium Direct Bilirubin AST ALT Alkaline Phosphatase Lactate Dehydrogenase Troponin T C-Reactive Protein Total Protein Albumin Prealbumin Triglycerides Cholesterol LDL Cholesterol Direct HDL Cholesterol Urine pH Urine WBC (Auto) Urine Creatinine Urine Total Protein Fluid Total Protein Vancomycin Trough Rheumatoid Factor Complement C4 Miscellaneous Test Crossmatch 12/06/16 12/07/16 12/07/16 23:59 05:34 06:30 WBC RBC Hgb Hct MCV MCH MCHC RDW Plt Count Lymph % (Auto) [place] % (Auto) Lymph # [place] # Baso # Seg Neutrophils % Seg Neuts % (Manual) Lymphocytes % (Manual) Monocytes % (Manual) Eosinophils % (Manual) Basophils % (Manual) Nucleated RBC % Seg Neutrophils # Seg Neutrophils # Man Lymphocytes # (Manual) Monocytes # (Manual) Eosinophils # (Manual) PT INR Fibrinogen dRVVT Confirm Interp Factor V Activity POC ABG pH POC ABG pCO2 POC ABG pO2 ABG pO2 ABG HCO3 ABG Base Excess ABG Hemoglobin Oxyhemoglobin Sodium Potassium Chloride Carbon Dioxide BUN 67 H Creatinine 1.4 H Glucose 126 H POC Glucose 129 H 129 H Lactic Acid Calcium Phosphorus Magnesium Direct Bilirubin AST ALT Alkaline Phosphatase Lactate Dehydrogenase Troponin T C-Reactive Protein Total Protein Albumin Prealbumin Triglycerides Cholesterol LDL Cholesterol Direct HDL Cholesterol Urine pH Urine WBC (Auto) Urine Creatinine Urine Total Protein Fluid Total Protein Vancomycin Trough Rheumatoid Factor Complement C4 Miscellaneous Test Crossmatch 12/07/16 12/07/16 12/07/16 06:30 08:00 09:45 WBC 18.8 H RBC 2.52 L Hgb 6.9 L 6.8 L Hct 21.2 L 21.1 L MCV MCH 27 L MCHC RDW 18.0 H Plt Count Lymph % (Auto) [place] % (Auto) 9.9 H Lymph # [place] # 1.9 H Baso # Seg Neutrophils % 71.8 H Seg Neuts % (Manual) Lymphocytes % (Manual) Monocytes % (Manual) Eosinophils % (Manual) Basophils % (Manual) Nucleated RBC % Seg Neutrophils # 13.5 H Seg Neutrophils # Man Lymphocytes # (Manual) Monocytes # (Manual) Eosinophils # (Manual) PT INR Fibrinogen dRVVT Confirm Interp Factor V Activity POC ABG pH POC ABG pCO2 POC ABG pO2 ABG pO2 ABG HCO3 ABG Base Excess ABG Hemoglobin Oxyhemoglobin Sodium Potassium Chloride Carbon Dioxide BUN Creatinine Glucose POC Glucose Lactic Acid Calcium Phosphorus Magnesium Direct Bilirubin AST ALT Alkaline Phosphatase Lactate Dehydrogenase Troponin T C-Reactive Protein Total Protein Albumin Prealbumin Triglycerides Cholesterol LDL Cholesterol Direct HDL Cholesterol Urine pH Urine WBC (Auto) Urine Creatinine Urine Total Protein Fluid Total Protein Vancomycin Trough Rheumatoid Factor Complement C4 Miscellaneous Test Crossmatch See Detail 12/07/16 12/07/16 12/07/16 11:44 18:19 23:59 WBC RBC Hgb Hct MCV MCH MCHC RDW Plt Count Lymph % (Auto) [place] % (Auto) Lymph # [place] # Baso # Seg Neutrophils % Seg Neuts % (Manual) Lymphocytes % (Manual) Monocytes % (Manual) Eosinophils % (Manual) Basophils % (Manual) Nucleated RBC % Seg Neutrophils # Seg Neutrophils # Man Lymphocytes # (Manual) Monocytes # (Manual) Eosinophils # (Manual) PT INR Fibrinogen dRVVT Confirm Interp Factor V Activity POC ABG pH POC ABG pCO2 POC ABG pO2 ABG pO2 ABG HCO3 ABG Base Excess ABG Hemoglobin Oxyhemoglobin Sodium Potassium Chloride Carbon Dioxide BUN Creatinine Glucose POC Glucose 137 H 138 H 133 H Lactic Acid Calcium Phosphorus Magnesium Direct Bilirubin AST ALT Alkaline Phosphatase Lactate Dehydrogenase Troponin T C-Reactive Protein Total Protein Albumin Prealbumin Triglycerides Cholesterol LDL Cholesterol Direct HDL Cholesterol Urine pH Urine WBC (Auto) Urine Creatinine Urine Total Protein Fluid Total Protein Vancomycin Trough Rheumatoid Factor Complement C4 Miscellaneous Test Crossmatch 12/08/16 12/08/16 12/08/16 05:25 05:30 05:30 WBC 23.8 H RBC 2.88 L Hgb 8.1 L Hct 24.3 L MCV MCH MCHC RDW 16.7 H Plt Count Lymph % (Auto) [place] % (Auto) Lymph # [place] # Baso # Seg Neutrophils % Seg Neuts % (Manual) 76.0 H Lymphocytes % (Manual) 9.0 L Monocytes % (Manual) 9.0 H Eosinophils % (Manual) Basophils % (Manual) Nucleated RBC % Seg Neutrophils # Seg Neutrophils # Man 18.1 H Lymphocytes # (Manual) Monocytes # (Manual) 2.1 H Eosinophils # (Manual) PT INR Fibrinogen dRVVT Confirm Interp Factor V Activity POC ABG pH POC ABG pCO2 POC ABG pO2 ABG pO2 ABG HCO3 ABG Base Excess ABG Hemoglobin Oxyhemoglobin Sodium Potassium Chloride Carbon Dioxide 21 L BUN 76 H Creatinine 1.6 H Glucose 133 H POC Glucose 177 H Lactic Acid Calcium Phosphorus Magnesium Direct Bilirubin AST ALT Alkaline Phosphatase Lactate Dehydrogenase Troponin T C-Reactive Protein Total Protein Albumin Prealbumin Triglycerides Cholesterol LDL Cholesterol Direct HDL Cholesterol Urine pH Urine WBC (Auto) Urine Creatinine Urine Total Protein Fluid Total Protein Vancomycin Trough Rheumatoid Factor Complement C4 Miscellaneous Test Crossmatch 12/08/16 12/08/16 12/09/16 11:45 18:00 00:00 WBC RBC Hgb Hct MCV MCH MCHC RDW Plt Count Lymph % (Auto) [place] % (Auto) Lymph # [place] # Baso # Seg Neutrophils % Seg Neuts % (Manual) Lymphocytes % (Manual) Monocytes % (Manual) Eosinophils % (Manual) Basophils % (Manual) Nucleated RBC % Seg Neutrophils # Seg Neutrophils # Man Lymphocytes # (Manual) Monocytes # (Manual) Eosinophils # (Manual) PT INR Fibrinogen dRVVT Confirm Interp Factor V Activity POC ABG pH POC ABG pCO2 POC ABG pO2 ABG pO2 ABG HCO3 ABG Base Excess ABG Hemoglobin Oxyhemoglobin Sodium Potassium Chloride Carbon Dioxide BUN Creatinine Glucose POC Glucose 163 H 123 H 137 H Lactic Acid Calcium Phosphorus Magnesium Direct Bilirubin AST ALT Alkaline Phosphatase Lactate Dehydrogenase Troponin T C-Reactive Protein Total Protein Albumin Prealbumin Triglycerides Cholesterol LDL Cholesterol Direct HDL Cholesterol Urine pH Urine WBC (Auto) Urine Creatinine Urine Total Protein Fluid Total Protein Vancomycin Trough Rheumatoid Factor Complement C4 Miscellaneous Test Crossmatch 12/09/16 12/09/16 12/09/16 05:34 06:00 06:00 WBC 15.5 H RBC 2.87 L Hgb 8.0 L Hct 24.2 L MCV MCH MCHC RDW 17.2 H Plt Count Lymph % (Auto) [place] % (Auto) 11.6 H Lymph # [place] # 1.8 H Baso # Seg Neutrophils % 70.8 H Seg Neuts % (Manual) Lymphocytes % (Manual) Monocytes % (Manual) Eosinophils % (Manual) Basophils % (Manual) Nucleated RBC % Seg Neutrophils # 11.0 H Seg Neutrophils # Man Lymphocytes # (Manual) Monocytes # (Manual) Eosinophils # (Manual) PT INR Fibrinogen dRVVT Confirm Interp Factor V Activity POC ABG pH POC ABG pCO2 POC ABG pO2 ABG pO2 ABG HCO3 ABG Base Excess ABG Hemoglobin Oxyhemoglobin Sodium Potassium Chloride Carbon Dioxide BUN 51 H Creatinine Glucose 117 H POC Glucose 136 H Lactic Acid Calcium Phosphorus Magnesium Direct Bilirubin AST ALT Alkaline Phosphatase Lactate Dehydrogenase Troponin T C-Reactive Protein Total Protein Albumin Prealbumin Triglycerides Cholesterol LDL Cholesterol Direct HDL Cholesterol Urine pH Urine WBC (Auto) Urine Creatinine Urine Total Protein Fluid Total Protein Vancomycin Trough Rheumatoid Factor Complement C4 Miscellaneous Test Crossmatch 12/09/16 12/09/16 12/09/16 12:29 17:52 23:10 WBC RBC Hgb Hct MCV MCH MCHC RDW Plt Count Lymph % (Auto) [place] % (Auto) Lymph # [place] # Baso # Seg Neutrophils % Seg Neuts % (Manual) Lymphocytes % (Manual) Monocytes % (Manual) Eosinophils % (Manual) Basophils % (Manual) Nucleated RBC % Seg Neutrophils # Seg Neutrophils # Man Lymphocytes # (Manual) Monocytes # (Manual) Eosinophils # (Manual) PT INR Fibrinogen dRVVT Confirm Interp Factor V Activity POC ABG pH POC ABG pCO2 POC ABG pO2 ABG pO2 ABG HCO3 ABG Base Excess ABG Hemoglobin Oxyhemoglobin Sodium Potassium Chloride Carbon Dioxide BUN Creatinine Glucose POC Glucose 139 H 140 H 129 H Lactic Acid Calcium Phosphorus Magnesium Direct Bilirubin AST ALT Alkaline Phosphatase Lactate Dehydrogenase Troponin T C-Reactive Protein Total Protein Albumin Prealbumin Triglycerides Cholesterol LDL Cholesterol Direct HDL Cholesterol Urine pH Urine WBC (Auto) Urine Creatinine Urine Total Protein Fluid Total Protein Vancomycin Trough Rheumatoid Factor Complement C4 Miscellaneous Test Crossmatch 12/10/16 12/10/16 12/10/16 05:00 05:00 06:54 WBC 15.7 H RBC 2.87 L Hgb 8.2 L Hct 24.4 L MCV MCH MCHC RDW 17.2 H Plt Count Lymph % (Auto) [place] % (Auto) 8.3 H Lymph # [place] # 1.3 H Baso # Seg Neutrophils % 72.8 H Seg Neuts % (Manual) Lymphocytes % (Manual) Monocytes % (Manual) Eosinophils % (Manual) Basophils % (Manual) Nucleated RBC % Seg Neutrophils # 11.4 H Seg Neutrophils # Man Lymphocytes # (Manual) Monocytes # (Manual) Eosinophils # (Manual) PT INR Fibrinogen dRVVT Confirm Interp Factor V Activity POC ABG pH POC ABG pCO2 POC ABG pO2 ABG pO2 ABG HCO3 ABG Base Excess ABG Hemoglobin Oxyhemoglobin Sodium Potassium Chloride Carbon Dioxide BUN 64 H Creatinine 1.4 H Glucose 134 H POC Glucose 154 H Lactic Acid Calcium Phosphorus Magnesium Direct Bilirubin AST ALT Alkaline Phosphatase Lactate Dehydrogenase Troponin T C-Reactive Protein Total Protein Albumin Prealbumin Triglycerides Cholesterol LDL Cholesterol Direct HDL Cholesterol Urine pH Urine WBC (Auto) Urine Creatinine Urine Total Protein Fluid Total Protein Vancomycin Trough Rheumatoid Factor Complement C4 Miscellaneous Test Crossmatch 12/10/16 11:58 WBC RBC Hgb Hct MCV MCH MCHC RDW Plt Count Lymph % (Auto) [place] % (Auto) Lymph # [place] # Baso # Seg Neutrophils % Seg Neuts % (Manual) Lymphocytes % (Manual) Monocytes % (Manual) Eosinophils % (Manual) Basophils % (Manual) Nucleated RBC % Seg Neutrophils # Seg Neutrophils # Man Lymphocytes # (Manual) Monocytes # (Manual) Eosinophils # (Manual) PT INR Fibrinogen dRVVT Confirm Interp Factor V Activity POC ABG pH POC ABG pCO2 POC ABG pO2 ABG pO2 ABG HCO3 ABG Base Excess ABG Hemoglobin Oxyhemoglobin Sodium Potassium Chloride Carbon Dioxide BUN Creatinine Glucose POC Glucose 144 H Lactic Acid Calcium Phosphorus Magnesium Direct Bilirubin AST ALT Alkaline Phosphatase Lactate Dehydrogenase Troponin T C-Reactive Protein Total Protein Albumin Prealbumin Triglycerides Cholesterol LDL Cholesterol Direct HDL Cholesterol Urine pH Urine WBC (Auto) Urine Creatinine Urine Total Protein Fluid Total Protein Vancomycin Trough Rheumatoid Factor Complement C4 Miscellaneous Test Crossmatch Allied health notes reviewed: RT
[2016-12-10] MEDS ORDERED: TPN ADULT IV SCH (20:00)
[2016-12-10] MEDS: TYLENOL FEEDTUBE PRN (22:44)
[2016-12-11] MEDS: HumuLIN R SUB-Q SCH ×4 (00:43→17:57)
[2016-12-11] MEDS: DUONEB *Not for PRN Use IH SCH ×4 (02:10→19:42)
[2016-12-11] MEDS: LASIX IV SCH ×2 (06:25→17:56)
[2016-12-11] MEDS: APRESOLINE PO SCH ×3 (06:25→22:40)
[2016-12-11] MEDS: LOPRESSOR PO SCH ×4 (06:26→23:21)
[2016-12-11 07:00] LABS: Basophils # (Auto) 0.1 K/mm3 (0.0-0.1); Basophils % (Auto) 0.4 % (0.0-1.8); Eosinophils # (Auto) 0.1 K/mm3 (0.0-0.4); Eosinophils % (Auto) 0.7 % (0.0-4.3); Hematocrit 23.4 % (30.3-42.9); Hemoglobin 7.7 gm/dl (10.1-14.3); Lymphocytes # (Auto) 2.5 K/mm3 (1.2-5.4); Lymphocytes % (Auto) 17.6 % (13.4-35.0); Mean Corpuscular HGB Conc 33 % (30-34); Mean Corpuscular Hemoglobin 28 pg (28-32); Mean Corpuscular Volume 85 fl (79-97); Monocytes # (Auto) 1.3 K/mm3 (0.0-0.8); Monocytes % (Auto) 8.8 % (0.0-7.3); Platelet Count 297 K/mm3 (140-440); Red Blood Count 2.76 M/mm3 (3.65-5.03); Red Cell Distribution Width 17.2 % (13.2-15.2)
[2016-12-11 07:20] LABS: BUN/Creatinine Ratio 48; Blood Urea Nitrogen 43 mg/dL (7-17); Calcium 8.3 mg/dL (8.4-10.2); Hemolysis Index 2
[2016-12-11] MEDS: ROBINUL PO SCH ×2 (09:06→22:35)
[2016-12-11] MEDS: NORVASC PO SCH (09:06)
[2016-12-11] MEDS: HEPARIN SUB-Q SCH ×2 (09:07→22:35)
[2016-12-11] MEDS: PROTONIX FEEDTUBE SCH (09:07)
--- NOTE | 2016-12-11 11:20 | Progress Note ---
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 appearance: Patient lying in bed, no apparent distress, 4. restraints HEENT: Normocephalic, atraumatic, pupils equally round and reactive to light, extraocular movement intact, and no sclericterus,. No JVD or thyromegaly or nodule,neck supple, no carotid bruit ,mucous membranes moist, unable to examine oral cavity Heart: S1, S2, regular rate and rhythm Lungs: Clear to auscultation bilaterally, breathing comfortable Abdomen: Positive bowel sounds, nontender, nondistended, no organomegaly Extremity: No edema, cyanosis, clubbing Skin: No rash, nodules, warm, dry Neuro: Difficult to assess, facial droop, moves all 4 extremities - Vital Signs Vital signs: Vital Signs - 12hr 12/10/16 12/10/16 12/10/16 23:27 23:40 23:44 Temperature Pulse Rate 100 H Pulse Rate [ Anterior Bilateral Throughout] Pulse Rate [ From Monitor] Respiratory 18 Rate Respiratory Rate [Anterior Bilateral Throughout] Blood Pressure 112/67 O2 Sat by Pulse 100 Oximetry O2 Sat by Pulse 100 Oximetry [ Assessment] 12/11/16 12/11/16 12/11/16 00:00 01:00 02:00 Temperature 98.8 F Pulse Rate 89 90 96 H Pulse Rate [ Anterior Bilateral Throughout] Pulse Rate [ 89 From Monitor] Respiratory 18 18 18 Rate Respiratory Rate [Anterior Bilateral Throughout] Blood Pressure 87/47 97/56 109/67 O2 Sat by Pulse 100 100 99 Oximetry O2 Sat by Pulse Oximetry [ Assessment] 12/11/16 12/11/16 12/11/16 02:10 02:20 03:00 Temperature Pulse Rate 102 H Pulse Rate [ 94 H 95 H Anterior Bilateral Throughout] Pulse Rate [ From Monitor] Respiratory 16 Rate Respiratory 18 18 Rate [Anterior Bilateral Throughout] Blood Pressure 124/77 O2 Sat by Pulse 99 Oximetry O2 Sat by Pulse Oximetry [ Assessment] 12/11/16 12/11/16 12/11/16 03:05 04:00 04:01 Temperature 98.8 F Pulse Rate 99 H 102 H Pulse Rate [ Anterior Bilateral Throughout] Pulse Rate [ From Monitor] Respiratory 22 22 Rate Respiratory Rate [Anterior Bilateral Throughout] Blood Pressure 122/71 124/77 O2 Sat by Pulse 100 100 100 Oximetry O2 Sat by Pulse Oximetry [ Assessment] 12/11/16 12/11/16 12/11/16 05:00 06:00 06:25 Temperature Pulse Rate 103 H 105 H 108 H Pulse Rate [ Anterior Bilateral Throughout] Pulse Rate [ From Monitor] Respiratory 22 17 Rate Respiratory Rate [Anterior Bilateral Throughout] Blood Pressure 143/89 137/83 148/84 O2 Sat by Pulse 100 100 Oximetry O2 Sat by Pulse Oximetry [ Assessment] 12/11/16 12/11/16 12/11/16 06:26 07:00 07:51 Temperature Pulse Rate 108 H 100 H Pulse Rate [ Anterior Bilateral Throughout] Pulse Rate [ 98 H From Monitor] Respiratory 21 Rate Respiratory Rate [Anterior Bilateral Throughout] Blood Pressure 148/84 133/71 O2 Sat by Pulse 98 100 Oximetry O2 Sat by Pulse Oximetry [ Assessment] 12/11/16 12/11/16 12/11/16 07:54 08:00 09:00 Temperature 98.1 F Pulse Rate 97 H 98 H Pulse Rate [ Anterior Bilateral Throughout] Pulse Rate [ From Monitor] Respiratory 20 17 Rate Respiratory Rate [Anterior Bilateral Throughout] Blood Pressure 127/77 126/72 O2 Sat by Pulse 96 99 Oximetry O2 Sat by Pulse Oximetry [ Assessment] 12/11/16 12/11/16 12/11/16 09:06 09:09 09:32 Temperature Pulse Rate 97 H 99 H 98 H Pulse Rate [ 98 H 97 H Anterior Bilateral Throughout] Pulse Rate [ From Monitor] Respiratory 34 H Rate Respiratory 17 34 H Rate [Anterior Bilateral Throughout] Blood Pressure 126/72 142/82 136/80 O2 Sat by Pulse 99 100 Oximetry O2 Sat by Pulse 100 Oximetry [ Assessment] 12/11/16 10:00 Temperature Pulse Rate 107 H Pulse Rate [ Anterior Bilateral Throughout] Pulse Rate [ From Monitor] Respiratory 30 H Rate Respiratory Rate [Anterior Bilateral Throughout] Blood Pressure 150/94 O2 Sat by Pulse 100 Oximetry O2 Sat by Pulse Oximetry [ Assessment] - Lab 12/11/16 06:30 12/11/16 06:30 Most recent lab results ABG pH 7.450 pH Units (7.350-7.450) 12/05/16 Unknown ABG pCO2 29.6 mm Hg 12/05/16 Unknown ABG pO2 75.2 mm Hg (80.0-90.0) L 12/05/16 Unknown ABG HCO3 20.1 mmol/L (20.0-26.0) 12/05/16 Unknown ABG O2 Saturation 96.8 % (95.0-99.0) 12/05/16 Unknown Calcium 8.3 mg/dL (8.4-10.2) L 12/11/16 06:30 Phosphorus 2.50 mg/dL (2.5-4.5) 12/11/16 06:30 Magnesium 1.60 mg/dL (1.7-2.3) L 12/11/16 06:30 Urine Creatinine 19.7 mg/dL (0.1-20.0) 11/12/16 10:18 Urine Sodium 36 mEq/L 09/16/16 19:19 Urine Total Protein 16 mg/dL (5-11.8) H 09/16/16 19:19
--- NOTE | 2016-12-11 11:36 | Progress Note ---
Assessment and Plan Assessment and plan: Patient is 46-year-old woman with a history of hypertension, diabetes, asthma, hyperlipidemia, chronic kidney disease and anxiety , who was brought in by family because, she couldn't get her words out, her face was also twisted, she was admitted for acute CVA and accelerated hypertension, she had a hx of poor adherence with her medications, and uncontrolled htn. Patient's SBP on admission was noted be greater than 260. TPA was started but this was discontinued after 5 minutes because her blood pressure became uncontrolled. The TPA was not initiated again because the patient was outside the TPA window. Patient has had a prolonged hospital stay complicated with recurrent severe sepsis. Patient with most recent event also status post cardiac arrest on and received CPR. --Severe Sepsis with septic shock, recurrent. Patient with multiple episodes of sepsis. Initial episode due to presumed aspiration pneumonia and septic episode on 09/23 from candidemia then a third episode from peritonitis from gastric perforation from dislodged PEG +/-UTI. Patient was also noted to have had Candidemia with Blood cultures positive for Silvia albicans 09/23, 09/25 but negative on 09/30. Antibiotic discontinued on 12/05 per ID. patient is s/p R thoracentesis on 11/14, 240cc of serous fluid removed, cx of fluid was negative. Also, Stool negative for C. difficile --Surgical wound infection/gram-negative sepsis/candidemia/peritonitis. Continue wound care to ostomy sites --Acute hypoxic respiratory failure, status post tracheostomy Patient placed back on ventilation. Patient currently with CPAP mode. Patient failed T-piece trials. Tracheostomy tube leak. Attempt weaning again on Monday. I discussed the case with respiratory therapy. Pulmonary following --Acute massive CVA with mass effect; continue antiplatelets and statins CT showed continued evolution of left MCA infarct with slight mass effect and edema, and there is no hemorrhage -PRINCE showed hyperdynamic ventricle with ef of 75%, neither clot nor septal defect seen -MRA Brain shows near complete occlusion of M2 and M3 of the left MCA Repeat CT scan done on 09/11, showed stable findings carotid doppler negative -Echo shows preserved systolic function but does show some left ventricular diastolic dysfunction -continue asa and statin --Oliguric acute kidney injury. Etiology secondary to ATN on CKD. Baseline creatinine is approximately 1.7. --Paroxysmal atrial fibrillation with rapid ventricular rate, failed cardioversion Continue current medications, Not a candidate for anticoagulation secondary to anemia thrombocytopenia and massive CVA --Anemia; probably secondary to GI bleeding Patient received multiple units of PRBC in the past, hemoglobin currently stable re-consult GI if needed Recheck Hemoccult stool -Toxic metabolic encephalopathy; supportive care --Diabetes mellitus type 2, Insulin/SSI --Severe protein caloric malnutrition, cont TPN --s/p Thrombocytopenia. Now resolved --DVT prophylaxis, SCDs, no pharmacological agent given anemia , thrombocytopenia, massive stroke --Full code status, very poor prognosis Dispo. Very poor prognosis has been explained by the hospitalist group and the residential installer but the family currently refusing hospice evaluation. The family would like to continue aggressive care. The high probability of a clinically significant, sudden or life threatening deterioration of the [respiratory, GI, immunological and cardiovascular] system( s) required my full and direct attention, intervention and personal management. The aggregate critical care time was [31] minutes. This time is in addition to time spent performing reported procedures but includes the following: [x] Data Review and interpretation [x] Patient assessment and monitoring of vital signs [x] Documentation [x] Medication orders and management History Interval history: No new issues overnight. Hospitalist Physical - Constitutional Vitals: Temp Pulse Resp BP Pulse Ox 98.1 F 107 H 30 H 150/94 100 12/11/16 07:54 12/11/16 10:00 12/11/16 10:00 12/11/16 10:00 12/11/16 10:00 General appearance: Present: no acute distress - EENT Eyes: Present: PERRL, EOM intact ENT: hearing intact, clear oral mucosa, dentition normal - Neck Neck: Present: supple, normal ROM - Respiratory Respiratory effort: normal Respiratory: bilateral: CTA - Cardiovascular Rhythm: regular Heart Sounds: Present: S1 & S2. Absent: gallop, rub - Extremities Extremities: no ischemia, No edema, Full ROM - Abdominal General gastrointestinal: soft, non-tender, non-distended, normal bowel sounds - Integumentary Integumentary: Present: clear, warm, dry - Neurologic Neurologic: CNII-XII intact, moves all extremities Results - Labs CBC & Chem 7: 12/11/16 06:30 12/11/16 06:30 Labs: Laboratory Last Values WBC 14.4 K/mm3 (4.5-11.0) H 12/11/16 06:30 RBC 2.76 M/mm3 (3.65-5.03) L 12/11/16 06:30 Hgb 7.7 gm/dl (10.1-14.3) L 12/11/16 06:30 Hct 23.4 % (30.3-42.9) L 12/11/16 06:30 MCV 85 fl (79-97) 12/11/16 06:30 MCH 28 pg (28-32) 12/11/16 06:30 MCHC 33 % (30-34) 12/11/16 06:30 RDW 17.2 % (13.2-15.2) H 12/11/16 06:30 Plt Count 297 K/mm3 (140-440) 12/11/16 06:30 Lymph % (Auto) 17.6 % (13.4-35.0) 12/11/16 06:30 [place] % (Auto) 8.8 % (0.0-7.3) H 12/11/16 06:30 Eos % (Auto) 0.7 % (0.0-4.3) 12/11/16 06:30 Baso % (Auto) 0.4 % (0.0-1.8) 12/11/16 06:30 Lymph # 2.5 K/mm3 (1.2-5.4) 12/11/16 06:30 [place] # 1.3 K/mm3 (0.0-0.8) H 12/11/16 06:30 Eos # 0.1 K/mm3 (0.0-0.4) 12/11/16 06:30 Baso # 0.1 K/mm3 (0.0-0.1) 12/11/16 06:30 Add Manual Diff Complete 12/08/16 05:30 Total Counted 100 12/08/16 05:30 Seg Neutrophils % 72.5 % (40.0-70.0) H 12/11/16 06:30 Seg Neuts % (Manual) 76.0 % (40.0-70.0) H 12/08/16 05:30 Band Neutrophils % 6.0 % 12/08/16 05:30 Lymphocytes % (Manual) 9.0 % (13.4-35.0) L 12/08/16 05:30 Reactive Lymphs % (Man) 0 % 12/08/16 05:30 Monocytes % (Manual) 9.0 % (0.0-7.3) H 12/08/16 05:30 Eosinophils % (Manual) 0 % (0.0-4.3) 12/08/16 05:30 Basophils % (Manual) 0 % (0.0-1.8) 12/08/16 05:30 Metamyelocytes % 0 % 12/08/16 05:30 Myelocytes % 0 % 12/08/16 05:30 Promyelocytes % 0 % 12/08/16 05:30 Blast Cells % 0 % 12/08/16 05:30 Nucleated RBC % Not Reportable 12/08/16 05:30 Seg Neutrophils # 10.5 K/mm3 (1.8-7.7) H 12/11/16 06:30 Seg Neutrophils # Man 18.1 K/mm3 (1.8-7.7) H 12/08/16 05:30 Band Neutrophils # 1.4 K/mm3 12/08/16 05:30 Lymphocytes # (Manual) 2.1 K/mm3 (1.2-5.4) 12/08/16 05:30 Abs React Lymphs (Man) 0.0 K/mm3 12/08/16 05:30 Monocytes # (Manual) 2.1 K/mm3 (0.0-0.8) H 12/08/16 05:30 Eosinophils # (Manual) 0.0 K/mm3 (0.0-0.4) 12/08/16 05:30 Basophils # (Manual) 0.0 K/mm3 (0.0-0.1) 12/08/16 05:30 Metamyelocytes # 0.0 K/mm3 12/08/16 05:30 Myelocytes # 0.0 K/mm3 12/08/16 05:30 Promyelocytes # 0.0 K/mm3 12/08/16 05:30 Blast Cells # 0.0 K/mm3 12/08/16 05:30 Pathologist Review 09/13/16 04:00 WBC Morphology Not Reportable 12/08/16 05:30 Hypersegmented Neuts Not Reportable 12/08/16 05:30 Hyposegmented Neuts Not Reportable 12/08/16 05:30 Hypogranular Neuts Not Reportable 12/08/16 05:30 Smudge Cells Not Reportable 12/08/16 05:30 Toxic Granulation Not Reportable 12/08/16 05:30 Toxic Vacuolation Not Reportable 12/08/16 05:30 Dohle Bodies Not Reportable 12/08/16 05:30 Pelger-Huet Anomaly Not Reportable 12/08/16 05:30 Jasmina Rods Not Reportable 12/08/16 05:30 Platelet Estimate Appears normal 12/08/16 05:30 Clumped Platelets Not Reportable 12/08/16 05:30 Plt Clumps, EDTA Not Reportable 12/08/16 05:30 Large Platelets Not Reportable 12/08/16 05:30 Giant Platelets Not Reportable 12/08/16 05:30 Platelet Satelliting Not Reportable 12/08/16 05:30 Plt Morphology Comment Not Reportable 12/08/16 05:30 RBC Morphology Not Reportable 12/08/16 05:30 Dimorphic RBCs Not Reportable 12/08/16 05:30 Polychromasia Not Reportable 12/08/16 05:30 Hypochromasia Few 12/08/16 05:30 Poikilocytosis Not Reportable 12/08/16 05:30 Anisocytosis 1+ 12/08/16 05:30 Microcytosis Few 12/08/16 05:30 Macrocytosis Not Reportable 12/08/16 05:30 Spherocytes Not Reportable 12/08/16 05:30 Pappenheimer Bodies Not Reportable 12/08/16 05:30 Sickle Cells Not Reportable 12/08/16 05:30 Target Cells Not Reportable 12/08/16 05:30 Tear Drop Cells Not Reportable 12/08/16 05:30 Ovalocytes 1+ 12/08/16 05:30 Stomatocytes Rare 12/03/16 04:00 Helmet Cells Not Reportable 12/08/16 05:30 [place] Bodies Not Reportable 12/08/16 05:30 [place] Rings Not Reportable 12/08/16 05:30 [place] Cells Rare 12/08/16 05:30 Bite Cells Not Reportable 12/08/16 05:30 Crenated Cell Not Reportable 12/08/16 05:30 Elliptocytes Not Reportable 12/08/16 05:30 Acanthocytes (Spur) Not Reportable 12/08/16 05:30 Rouleaux Not Reportable 12/08/16 05:30 Hemoglobin C Crystals Not Reportable 12/08/16 05:30 Schistocytes Not Reportable 12/08/16 05:30 Malaria parasites Not Reportable 12/08/16 05:30 ESR > 140.0 mm/Hr (0-20) 09/08/16 11:48 Jun Bodies Not Reportable 12/08/16 05:30 Hem Pathologist Commnt No 12/08/16 05:30 PT 16.8 Sec. (12.2-14.9) H 11/17/16 03:20 INR 1.37 (0.87-1.13) H 11/17/16 03:20 APTT 33.0 Sec. (24.2-36.6) 10/09/16 03:45 Thrombin Time 16.8 Sec. (15.1-19.6) 09/03/16 00:10 Fibrinogen 750 mg/dl (211-480) H 09/08/16 11:48 Lupus Anticoagulant see below 09/12/16 09:59 LA PTT Baseline See scanned report 09/12/16 09:59 dRVVT Confirm Interp Positive (Negative) H 09/12/16 09:59 dRVVT Screen 50:50 See scanned report 09/12/16 09:59 dRVVT Mix Interpret See scanned report 09/12/16 09:59 Protein C Antigen 122 % (70-140) 09/08/16 15:35 Free Protein S 97 % normal (50-147) 09/08/16 15:35 Total Protein S 109 % (70-140) 09/08/16 15:35 Antithrombin III Ag 100 % (80-120) 09/08/16 15:35 Heparin Anti-Xa, Unfract Negative (Negative) 09/29/16 13:35 Factor V Activity 182 % (65-150) H 09/08/16 15:35 POC ABG pH 7.487 (7.35-7.45) H 11/25/16 14:12 ABG pH 7.450 pH Units (7.350-7.450) 12/05/16 Unknown POC ABG pCO2 39.0 (35-45) 11/25/16 14:12 ABG pCO2 29.6 mm Hg 12/05/16 Unknown POC ABG pO2 153 (80-105) H 11/25/16 14:12 ABG pO2 75.2 mm Hg (80.0-90.0) L 12/05/16 Unknown POC ABG HCO3 29.5 11/25/16 14:12 ABG HCO3 20.1 mmol/L (20.0-26.0) 12/05/16 Unknown POC ABG Total CO2 31 11/25/16 14:12 POC ABG O2 Sat 99 11/25/16 14:12 ABG O2 Saturation 96.8 % (95.0-99.0) 12/05/16 Unknown ABG O2 Content 9.9 (0.0-44) 12/05/16 Unknown POC ABG Base Excess 6 11/25/16 14:12 ABG Base Excess -3.4 mmol/L (-2.0-3.0) L 12/05/16 Unknown ABG Hemoglobin 7.4 gm/dl (12.0-16.0) L 12/05/16 Unknown ABG Carboxyhemoglobin 1.8 % (0.0-5.0) 12/05/16 Unknown ABG Methemoglobin 0.6 % (0.0-1.5) 12/05/16 Unknown Oxyhemoglobin 94.5 % (95.0-99.0) L 12/05/16 Unknown FiO2 30 % 12/05/16 Unknown Sodium 139 mmol/L (137-145) 12/11/16 06:30 Potassium 3.6 mmol/L (3.6-5.0) 12/11/16 06:30 Chloride 99.4 mmol/L (98-107) 12/11/16 06:30 Carbon Dioxide 27 mmol/L (22-30) 12/11/16 06:30 Anion Gap 16 mmol/L 12/11/16 06:30 BUN 43 mg/dL (7-17) H 12/11/16 06:30 Creatinine 0.9 mg/dL (0.7-1.2) 12/11/16 06:30 Estimated GFR > 60 ml/min 12/11/16 06:30 BUN/Creatinine Ratio 48 % 12/11/16 06:30 Glucose 124 mg/dL (65-100) H 12/11/16 06:30 POC Glucose 141 (70-105) H 12/11/16 05:38 Osmolality 351 Mosm/kg 09/16/16 11:47 Lactic Acid 4.50 mmol/L (0.7-2.0) H* 09/28/16 07:25 Calcium 8.3 mg/dL (8.4-10.2) L 12/11/16 06:30 Phosphorus 2.50 mg/dL (2.5-4.5) 12/11/16 06:30 Magnesium 1.60 mg/dL (1.7-2.3) L 12/11/16 06:30 Total Bilirubin 0.20 mg/dL (0.1-1.2) 12/04/16 04:00 Direct Bilirubin 0.3 mg/dL (0-0.2) H 10/10/16 05:00 Indirect Bilirubin 0.1 mg/dL 10/10/16 05:00 AST 29 units/L (5-40) 12/04/16 04:00 ALT 43 units/L (7-56) 12/04/16 04:00 Alkaline Phosphatase 155 units/L (35-129) H 12/04/16 04:00 Ammonia 27.0 umol/L (25-60) 09/07/16 08:37 Lactate Dehydrogenase 196 units/L (91-180) H 11/11/16 06:59 Total Creatine Kinase 121 units/L (30-135) 09/29/16 20:12 CK-MB (CK-2) < 1.0 ng/mL (0.0-4.0) 09/29/16 20:12 CK-MB (CK-2) Rel Index 0.8 (0-4) 09/29/16 20:12 Troponin T 0.204 ng/mL (0.00-0.029) H* 09/29/16 20:12 C-Reactive Protein 19.30 mg/dL (0.00-1.30) H 12/05/16 05:00 Total Protein 5.5 g/dL (6.3-8.2) L 12/04/16 04:00 Albumin 1.5 g/dL (3.9-5) L 12/04/16 04:00 Albumin/Globulin Ratio 0.4 % 12/04/16 04:00 Prealbumin 0.180 g/L (0.200-0.400) L 11/06/16 06:25 Triglycerides 137 mg/dL (2-149) 09/29/16 20:12 Cholesterol 31 mg/dL (50-199) L 09/29/16 20:12 LDL Cholesterol Direct 4 mg/dL (50-130) L 09/29/16 20:12 HDL Cholesterol 3 mg/dL (40-59) L 09/29/16 20:12 Cholesterol/HDL Ratio 10.33 % 09/29/16 20:12 Angiotensin Convert Enz See scanned report 09/08/16 11:48 Renin 0.99 ng/mL/h (0.25-5.82) 10/07/16 10:56 Aldosterone <1 ng/dL () 10/07/16 10:56 Aldosterone/Renin Dir see below 10/07/16 10:56 Serotonin Release Assay See scanned report 09/29/16 13:35 TSH 1.010 mlU/mL (0.270-4.200) 09/07/16 08:37 HCG, Qual Negative (Negative) 09/03/16 00:10 Urine Color Yellow (Yellow) 11/05/16 13:09 Urine Turbidity Clear (Clear) 11/05/16 13:09 Urine pH 9.0 (5.0-7.0) H 11/05/16 13:09 Ur Specific [place] 1.011 (1.003-1.030) 11/05/16 13:09 Urine Protein 100 mg/dl mg/dL (Negative) 11/05/16 13:09 Urine Glucose (UA) Neg mg/dL (Negative) 11/05/16 13:09 Urine Ketones Neg mg/dL (Negative) 11/05/16 13:09 Urine Blood Neg (Negative) 11/05/16 13:09 Urine Nitrite Neg (Negative) 11/05/16 13:09 Urine Bilirubin Neg (Negative) 11/05/16 13:09 Urine Urobilinogen < 2.0 mg/dL (<2.0) 11/05/16 13:09 Ur Leukocyte Esterase Neg (Negative) 11/05/16 13:09 Urine WBC (Auto) 4.0 /HPF (0.0-6.0) 11/05/16 13:09 Urine RBC (Auto) 1.0 /HPF (0.0-6.0) 11/05/16 13:09 U Epithel Cells (Auto) 1.0 /HPF (0-13.0) 10/07/16 18:30 Urine Bacteria (Auto) 4+ /HPF (Negative) 11/05/16 13:09 Urine WBC Clumps 2+ /HPF 09/07/16 02:47 Hyaline Casts 4 /LPF 09/07/16 02:47 Urine Mucus Few /HPF 10/07/16 18:30 Urine Yeast (Budding) 3+ /HPF 10/07/16 18:30 Urine Eosinophils None seen (None Seen) 09/07/16 16:00 Urine Total Volume 950 11/12/16 10:18 Urine Creatinine 19.7 mg/dL (0.1-20.0) 11/12/16 10:18 Height (in) 65.0 inches 11/12/16 10:18 Weight (lb) 181.0 lbs 11/12/16 10:18 Creatinine Clearance 5 11/12/16 10:18 Urine Sodium 36 mEq/L 09/16/16 19:19 Urine Total Protein 16 mg/dL (5-11.8) H 09/16/16 19:19 Fluid Total Protein < 3.0 (15.0-45.0) L 11/10/16 14:20 Fluid LDH 123 11/10/16 14:20 Vancomycin Trough 2.3 ug/mL (5.0-20.0) L 09/21/16 13:00 Random Vancomycin 16.5 ug/mL (0-40.0) 11/28/16 09:45 Urine Opiates Screen Presumptive negative 09/03/16 15:11 Urine Methadone Screen Presumptive positive 09/03/16 15:11 Ur Barbiturates Screen Presumptive positive 09/03/16 15:11 Ur Phencyclidine Scrn Presumptive negative 09/03/16 15:11 Ur Amphetamines Screen Presumptive negative 09/03/16 15:11 U Benzodiazepines Scrn Presumptive negative 09/03/16 15:11 Urine Cocaine Screen Presumptive negative 09/03/16 15:11 U Marijuana (THC) Screen Presumptive positive 09/03/16 15:11 Drugs of Abuse Note Disclamer 09/03/16 15:11 Rheumatoid Factor 24 IU/ml (0-13) H 09/08/16 11:48 SAHIL Screen Negative (Negative) 09/07/16 09:20 Proteinase 3 (PR3) Ab <1.0 AI (<1.0) 09/07/16 09:20 Myeloperoxidase Ab <1.0 AI (<1.0) 09/07/16 09:20 Sjogren's Antibody <1.0 AI (<1.0) 09/08/16 15:35 Scl-70 Scleroderma Ab <1.0 AI (<1.0) 09/08/16 15:35 Centromere B Antibody <1.0 AI (<1.0) 09/08/16 12:02 Heparin-induced Plt Ab Negative (Negative) 09/29/16 13:35 UF Heparin High Dose 11 % Release 09/29/16 13:35 SUDHIR UFH Low Dose 0.1 6 % Release 09/29/16 13:35 SUDHIR UFH Low Dose 0.5 8 % Release 09/29/16 13:35 Cardiolipid IgG Ab <14 GPL (<=14) 09/12/16 09:59 Cardiolipid IgA Ab <11 APL (<=11) 09/12/16 09:59 Cardiolipid IgM Ab <12 MPL (<=12) 09/12/16 09:59 Complement C3 148 mg/dL (90-180) 09/07/16 09:20 Complement C4 58 mg/dL (16-47) H 09/07/16 09:20 RPR Nonreactive (Nonreactive) 09/08/16 11:48 Hepatitis A IgM Ab Non-reactive (NonReactive) 09/24/16 14:40 Hep Bs Antigen Non-reactive (Negative) 09/24/16 14:40 Hep B Core IgM Ab Non-reactive (NonReactive) 09/24/16 14:40 Hepatitis C Antibody Non-reactive (NonReactive) 09/24/16 14:40 HIV 1&2 Antibody Rapid Non react (Non React) 09/08/16 11:48 HIV P24 Antigen Non react (Non React) 09/08/16 11:48 Miscellaneous Test Flexitest 1 H 11/05/16 13:25 Blood Type A POSITIVE 12/07/16 09:45 Antibody Screen Negative 12/07/16 09:45 DELORIS Antibody Screen Negative 11/24/16 11:20 Crossmatch See Detail 12/07/16 09:45
[2016-12-11] MEDS: TRANSDERM-SCOP TD SCH (14:18)
--- NOTE | 2016-12-11 16:18 | Progress Note ---
Assessment and Plan Acute Hypoxemic Respiratory Failure (now with exacerbation and back on MVS) Hypertension (unable to receive p.o. meds) s/p tracheostomy Acute encephalopathy s/p CVA Oropharyngeal dysphagia Enterococcal bacteremia sepsis syndrome Anemia Obesity JUANITA now on hemodialysis Enteric Fistula - leucocytosis stable and still without high grade fevers or clinical decompensation; continue to follow clinically and off AB's for now - prn CRP & lactate levels if clinically indicated - keep on with daily PSV trials and / or T-piece as tolerated (repeat trial each shift if failed earlier shift) - continue TPN administration (continue TPN; NPO except for meds) - continue scopolamine for secretion control - continue to wean FiO2 for sats > 94% - continue bronchodilators and pulmonary toilet - VAP bundle addressed - continue prn IV metorolol - continue metoprolol and amlodipine (rate control better) - continue HD/UF per nephrology (Teu/Thurs/Sat) - continue to follow electrolytes and correct as necessary - continue GI & VTE prophylaxis - Continue flu & pneumovax per protocol ... case discussed during rounds and care plan formulated .....she remains critically ill on life sustaining interventions including MVS and at risk for further deterioration including ....30' CCT today without overlap ...[facility] prognosis guarded Subjective Date of service: 12/11/16 Principal diagnosis: Acute resp failure on MVS; S/P Acute CVA; Acute Encephalopathy; JUANITA Interval history: Patient is seen today for: Acute resp failure on MVS; S/P Acute CVA; Acute Encephalopathy; JUANITA Seen and examined at bedside; 24hour events reviewed; nursing and respiratory care staff consulted; no adverse overnight events reported to me; weaning held during dialysis; AMS is persistent; no emesis; no gross bleeding; no high grade fevers; no new issues otherwise Objective Vital Signs - 12hr 12/11/16 12/11/16 12/11/16 05:00 06:00 06:25 Temperature Pulse Rate 103 H 105 H 108 H Pulse Rate [ Anterior Bilateral Throughout] Pulse Rate [ From Monitor] Respiratory 22 17 Rate Respiratory Rate [Anterior Bilateral Throughout] Blood Pressure 143/89 137/83 148/84 O2 Sat by Pulse 100 100 Oximetry O2 Sat by Pulse Oximetry [ Assessment] 12/11/16 12/11/16 12/11/16 06:26 07:00 07:51 Temperature Pulse Rate 108 H 100 H Pulse Rate [ Anterior Bilateral Throughout] Pulse Rate [ 98 H From Monitor] Respiratory 21 Rate Respiratory Rate [Anterior Bilateral Throughout] Blood Pressure 148/84 133/71 O2 Sat by Pulse 98 100 Oximetry O2 Sat by Pulse Oximetry [ Assessment] 12/11/16 12/11/16 12/11/16 07:54 08:00 09:00 Temperature 98.1 F Pulse Rate 97 H 98 H Pulse Rate [ Anterior Bilateral Throughout] Pulse Rate [ From Monitor] Respiratory 20 17 Rate Respiratory Rate [Anterior Bilateral Throughout] Blood Pressure 127/77 126/72 O2 Sat by Pulse 96 99 Oximetry O2 Sat by Pulse Oximetry [ Assessment] 12/11/16 12/11/16 12/11/16 09:06 09:09 09:32 Temperature Pulse Rate 97 H 99 H 98 H Pulse Rate [ 98 H 97 H Anterior Bilateral Throughout] Pulse Rate [ From Monitor] Respiratory 34 H Rate Respiratory 17 34 H Rate [Anterior Bilateral Throughout] Blood Pressure 126/72 142/82 136/80 O2 Sat by Pulse 99 100 Oximetry O2 Sat by Pulse 100 Oximetry [ Assessment] 12/11/16 12/11/16 12/11/16 10:00 11:00 11:56 Temperature Pulse Rate 107 H 105 H 101 H Pulse Rate [ Anterior Bilateral Throughout] Pulse Rate [ From Monitor] Respiratory 30 H 19 Rate Respiratory Rate [Anterior Bilateral Throughout] Blood Pressure 150/94 136/84 112/68 O2 Sat by Pulse 100 100 100 Oximetry O2 Sat by Pulse Oximetry [ Assessment] 12/11/16 12/11/16 12/11/16 12:00 13:00 14:00 Temperature 98.6 F Pulse Rate 102 H 96 H 101 H Pulse Rate [ Anterior Bilateral Throughout] Pulse Rate [ 100 H From Monitor] Respiratory 20 18 20 Rate Respiratory Rate [Anterior Bilateral Throughout] Blood Pressure 127/75 107/68 120/71 O2 Sat by Pulse 100 100 100 Oximetry O2 Sat by Pulse Oximetry [ Assessment] 12/11/16 12/11/16 12/11/16 14:16 15:00 15:49 Temperature Pulse Rate 103 H 96 H 96 H Pulse Rate [ 97 H Anterior Bilateral Throughout] Pulse Rate [ From Monitor] Respiratory 17 Rate Respiratory 21 Rate [Anterior Bilateral Throughout] Blood Pressure 122/73 115/70 118/76 O2 Sat by Pulse 100 100 Oximetry O2 Sat by Pulse Oximetry [ Assessment] 12/11/16 16:01 Temperature Pulse Rate Pulse Rate [ 97 H Anterior Bilateral Throughout] Pulse Rate [ From Monitor] Respiratory Rate Respiratory 12 Rate [Anterior Bilateral Throughout] Blood Pressure O2 Sat by Pulse Oximetry O2 Sat by Pulse Oximetry [ Assessment] Constitutional: appears uncomfortable, other (not tracking) Eyes: non-icteric, other (tracheostomy tube in midline of neck) ENT: oropharynx moist, oropharyngeal exudate pre Neck: supple, no lymphadenopathy, no JVD, other (no thyromegaly) Effort: mildly labored Ascultation: Left: diminished breath sounds (base), Bilateral: clear, rales, rhonchi (and referred upper airway sounds) Percussion: Left: dull (base), Bilateral: not dull Cardiovascular: regular rate and rhythm, other (no rubs / murmurs) Gastrointestinal: hypoactive bowel sounds, soft, non-tender, non-distended, other (RLQ & LUQ stomas with colostomy bags) Integumentary: other (no rash; no cellulitis; poor turgor) Extremities: no cyanosis, pulses normal, no ischemia or petechiae, edema (1+ bilaterally) Neurologic: pupils equal and round, unable to assess, other (encephalopathic) Psychiatric: other (unable to assess) CBC and BMP: 12/11/16 06:30 12/11/16 06:30 ABG, PT/INR, D-dimer: ABG POC ABG pH 7.487 (7.35-7.45) H 11/25/16 14:12 ABG pH 7.450 pH Units (7.350-7.450) 12/05/16 Unknown POC ABG pCO2 39.0 (35-45) 11/25/16 14:12 ABG pCO2 29.6 mm Hg 12/05/16 Unknown POC ABG pO2 153 (80-105) H 11/25/16 14:12 ABG pO2 75.2 mm Hg (80.0-90.0) L 12/05/16 Unknown POC ABG HCO3 29.5 11/25/16 14:12 POC ABG Total CO2 31 11/25/16 14:12 POC ABG O2 Sat 99 11/25/16 14:12 ABG O2 Saturation 96.8 % (95.0-99.0) 12/05/16 Unknown PT/INR, D-dimer PT 16.8 Sec. (12.2-14.9) H 11/17/16 03:20 INR 1.37 (0.87-1.13) H 11/17/16 03:20 Abnormal lab findings: Abnormal Labs 09/03/16 09/03/16 09/03/16 12:12 15:07 16:20 WBC RBC Hgb Hct MCV MCH MCHC RDW Plt Count Lymph % (Auto) [place] % (Auto) Lymph # [place] # Baso # Seg Neutrophils % Seg Neuts % (Manual) Lymphocytes % (Manual) Monocytes % (Manual) Eosinophils % (Manual) Basophils % (Manual) Nucleated RBC % Seg Neutrophils # Seg Neutrophils # Man Lymphocytes # (Manual) Monocytes # (Manual) Eosinophils # (Manual) PT INR Fibrinogen dRVVT Confirm Interp Factor V Activity POC ABG pH 7.452 H POC ABG pCO2 POC ABG pO2 ABG pO2 ABG HCO3 ABG Base Excess ABG Hemoglobin Oxyhemoglobin Sodium Potassium Chloride Carbon Dioxide BUN Creatinine Glucose POC Glucose 178 H Lactic Acid Calcium Phosphorus 2.20 L Magnesium 1.60 L Direct Bilirubin AST ALT Alkaline Phosphatase Lactate Dehydrogenase Troponin T C-Reactive Protein Total Protein Albumin Prealbumin Triglycerides Cholesterol LDL Cholesterol Direct HDL Cholesterol Urine pH Urine WBC (Auto) Urine Creatinine Urine Total Protein Fluid Total Protein Vancomycin Trough Rheumatoid Factor Complement C4 Miscellaneous Test Crossmatch 09/03/16 09/03/16 09/03/16 17:57 17:58 23:50 WBC RBC Hgb Hct MCV MCH MCHC RDW Plt Count Lymph % (Auto) [place] % (Auto) Lymph # [place] # Baso # Seg Neutrophils % Seg Neuts % (Manual) Lymphocytes % (Manual) Monocytes % (Manual) Eosinophils % (Manual) Basophils % (Manual) Nucleated RBC % Seg Neutrophils # Seg Neutrophils # Man Lymphocytes # (Manual) Monocytes # (Manual) Eosinophils # (Manual) PT INR Fibrinogen dRVVT Confirm Interp Factor V Activity POC ABG pH POC ABG pCO2 POC ABG pO2 ABG pO2 ABG HCO3 ABG Base Excess ABG Hemoglobin Oxyhemoglobin Sodium Potassium Chloride Carbon Dioxide BUN Creatinine Glucose POC Glucose 162 H 145 H Lactic Acid Calcium Phosphorus 2.30 L Magnesium Direct Bilirubin AST ALT Alkaline Phosphatase Lactate Dehydrogenase Troponin T C-Reactive Protein Total Protein Albumin Prealbumin Triglycerides Cholesterol LDL Cholesterol Direct HDL Cholesterol Urine pH Urine WBC (Auto) Urine Creatinine Urine Total Protein Fluid Total Protein Vancomycin Trough Rheumatoid Factor Complement C4 Miscellaneous Test Crossmatch 09/04/16 09/04/16 09/04/16 03:31 03:31 05:42 WBC RBC Hgb 9.7 L D Hct MCV 72 L MCH 23 L MCHC RDW 17.5 H Plt Count Lymph % (Auto) 11.1 L [place] % (Auto) Lymph # [place] # Baso # Seg Neutrophils % 84.3 H Seg Neuts % (Manual) Lymphocytes % (Manual) Monocytes % (Manual) Eosinophils % (Manual) Basophils % (Manual) Nucleated RBC % Seg Neutrophils # 8.9 H Seg Neutrophils # Man Lymphocytes # (Manual) Monocytes # (Manual) Eosinophils # (Manual) PT INR Fibrinogen dRVVT Confirm Interp Factor V Activity POC ABG pH POC ABG pCO2 POC ABG pO2 ABG pO2 ABG HCO3 ABG Base Excess ABG Hemoglobin Oxyhemoglobin Sodium 135 L Potassium 2.9 L* Chloride 97.2 L Carbon Dioxide 19 L BUN Creatinine 1.7 H Glucose 170 H POC Glucose 152 H Lactic Acid Calcium Phosphorus Magnesium Direct Bilirubin AST ALT Alkaline Phosphatase Lactate Dehydrogenase Troponin T C-Reactive Protein Total Protein Albumin Prealbumin Triglycerides 160 H Cholesterol LDL Cholesterol Direct HDL Cholesterol 31 L Urine pH Urine WBC (Auto) Urine Creatinine Urine Total Protein Fluid Total Protein Vancomycin Trough Rheumatoid Factor Complement C4 Miscellaneous Test Crossmatch 09/04/16 09/04/16 09/04/16 11:34 17:46 23:29 WBC RBC Hgb Hct MCV MCH MCHC RDW Plt Count Lymph % (Auto) [place] % (Auto) Lymph # [place] # Baso # Seg Neutrophils % Seg Neuts % (Manual) Lymphocytes % (Manual) Monocytes % (Manual) Eosinophils % (Manual) Basophils % (Manual) Nucleated RBC % Seg Neutrophils # Seg Neutrophils # Man Lymphocytes # (Manual) Monocytes # (Manual) Eosinophils # (Manual) PT INR Fibrinogen dRVVT Confirm Interp Factor V Activity POC ABG pH POC ABG pCO2 POC ABG pO2 ABG pO2 ABG HCO3 ABG Base Excess ABG Hemoglobin Oxyhemoglobin Sodium Potassium Chloride Carbon Dioxide BUN Creatinine Glucose POC Glucose 165 H 210 H 139 H Lactic Acid Calcium Phosphorus Magnesium Direct Bilirubin AST ALT Alkaline Phosphatase Lactate Dehydrogenase Troponin T C-Reactive Protein Total Protein Albumin Prealbumin Triglycerides Cholesterol LDL Cholesterol Direct HDL Cholesterol Urine pH Urine WBC (Auto) Urine Creatinine Urine Total Protein Fluid Total Protein Vancomycin Trough Rheumatoid Factor Complement C4 Miscellaneous Test Crossmatch 09/05/16 09/05/16 09/05/16 04:05 04:05 05:38 WBC RBC Hgb Hct MCV 76 L D MCH 23 L MCHC RDW 17.8 H Plt Count Lymph % (Auto) [place] % (Auto) Lymph # [place] # Baso # Seg Neutrophils % Seg Neuts % (Manual) Lymphocytes % (Manual) Monocytes % (Manual) Eosinophils % (Manual) Basophils % (Manual) Nucleated RBC % Seg Neutrophils # Seg Neutrophils # Man Lymphocytes # (Manual) Monocytes # (Manual) Eosinophils # (Manual) PT INR Fibrinogen dRVVT Confirm Interp Factor V Activity POC ABG pH POC ABG pCO2 POC ABG pO2 ABG pO2 ABG HCO3 ABG Base Excess ABG Hemoglobin Oxyhemoglobin Sodium 134 L Potassium Chloride Carbon Dioxide 18 L BUN Creatinine 1.8 H Glucose 192 H POC Glucose 175 H Lactic Acid Calcium Phosphorus Magnesium Direct Bilirubin AST ALT Alkaline Phosphatase Lactate Dehydrogenase Troponin T C-Reactive Protein Total Protein Albumin Prealbumin Triglycerides Cholesterol LDL Cholesterol Direct HDL Cholesterol Urine pH Urine WBC (Auto) Urine Creatinine Urine Total Protein Fluid Total Protein Vancomycin Trough Rheumatoid Factor Complement C4 Miscellaneous Test Crossmatch 09/05/16 09/05/16 09/05/16 11:38 17:48 23:22 WBC RBC Hgb Hct MCV MCH MCHC RDW Plt Count Lymph % (Auto) [place] % (Auto) Lymph # [place] # Baso # Seg Neutrophils % Seg Neuts % (Manual) Lymphocytes % (Manual) Monocytes % (Manual) Eosinophils % (Manual) Basophils % (Manual) Nucleated RBC % Seg Neutrophils # Seg Neutrophils # Man Lymphocytes # (Manual) Monocytes # (Manual) Eosinophils # (Manual) PT INR Fibrinogen dRVVT Confirm Interp Factor V Activity POC ABG pH POC ABG pCO2 POC ABG pO2 ABG pO2 ABG HCO3 ABG Base Excess ABG Hemoglobin Oxyhemoglobin Sodium Potassium Chloride Carbon Dioxide BUN Creatinine Glucose POC Glucose 164 H 186 H 195 H Lactic Acid Calcium Phosphorus Magnesium Direct Bilirubin AST ALT Alkaline Phosphatase Lactate Dehydrogenase Troponin T C-Reactive Protein Total Protein Albumin Prealbumin Triglycerides Cholesterol LDL Cholesterol Direct HDL Cholesterol Urine pH Urine WBC (Auto) Urine Creatinine Urine Total Protein Fluid Total Protein Vancomycin Trough Rheumatoid Factor Complement C4 Miscellaneous Test Crossmatch 09/06/16 09/06/16 09/06/16 04:12 05:59 07:32 WBC RBC Hgb Hct MCV MCH MCHC RDW Plt Count Lymph % (Auto) [place] % (Auto) Lymph # [place] # Baso # Seg Neutrophils % Seg Neuts % (Manual) Lymphocytes % (Manual) Monocytes % (Manual) Eosinophils % (Manual) Basophils % (Manual) Nucleated RBC % Seg Neutrophils # Seg Neutrophils # Man Lymphocytes # (Manual) Monocytes # (Manual) Eosinophils # (Manual) PT INR Fibrinogen dRVVT Confirm Interp Factor V Activity POC ABG pH 7.514 H POC ABG pCO2 29.1 L POC ABG pO2 72 L ABG pO2 ABG HCO3 ABG Base Excess ABG Hemoglobin Oxyhemoglobin Sodium 133 L Potassium 3.4 L Chloride 94.9 L Carbon Dioxide 19 L BUN 30 H Creatinine 2.1 H Glucose 139 H POC Glucose 146 H Lactic Acid Calcium Phosphorus Magnesium Direct Bilirubin AST ALT Alkaline Phosphatase Lactate Dehydrogenase Troponin T C-Reactive Protein Total Protein Albumin Prealbumin Triglycerides Cholesterol LDL Cholesterol Direct HDL Cholesterol Urine pH Urine WBC (Auto) Urine Creatinine Urine Total Protein Fluid Total Protein Vancomycin Trough Rheumatoid Factor Complement C4 Miscellaneous Test Crossmatch 09/06/16 09/06/16 09/06/16 11:57 17:58 19:02 WBC RBC Hgb Hct MCV MCH MCHC RDW Plt Count Lymph % (Auto) [place] % (Auto) Lymph # [place] # Baso # Seg Neutrophils % Seg Neuts % (Manual) Lymphocytes % (Manual) Monocytes % (Manual) Eosinophils % (Manual) Basophils % (Manual) Nucleated RBC % Seg Neutrophils # Seg Neutrophils # Man Lymphocytes # (Manual) Monocytes # (Manual) Eosinophils # (Manual) PT INR Fibrinogen dRVVT Confirm Interp Factor V Activity POC ABG pH 7.465 H POC ABG pCO2 32.0 L POC ABG pO2 ABG pO2 ABG HCO3 ABG Base Excess ABG Hemoglobin Oxyhemoglobin Sodium Potassium Chloride Carbon Dioxide BUN Creatinine Glucose POC Glucose 165 H 160 H Lactic Acid Calcium Phosphorus Magnesium Direct Bilirubin AST ALT Alkaline Phosphatase Lactate Dehydrogenase Troponin T C-Reactive Protein Total Protein Albumin Prealbumin Triglycerides Cholesterol LDL Cholesterol Direct HDL Cholesterol Urine pH Urine WBC (Auto) Urine Creatinine Urine Total Protein Fluid Total Protein Vancomycin Trough Rheumatoid Factor Complement C4 Miscellaneous Test Crossmatch 09/06/16 09/07/16 09/07/16 23:45 02:47 02:47 WBC RBC Hgb Hct MCV MCH MCHC RDW Plt Count Lymph % (Auto) [place] % (Auto) Lymph # [place] # Baso # Seg Neutrophils % Seg Neuts % (Manual) Lymphocytes % (Manual) Monocytes % (Manual) Eosinophils % (Manual) Basophils % (Manual) Nucleated RBC % Seg Neutrophils # Seg Neutrophils # Man Lymphocytes # (Manual) Monocytes # (Manual) Eosinophils # (Manual) PT INR Fibrinogen dRVVT Confirm Interp Factor V Activity POC ABG pH POC ABG pCO2 POC ABG pO2 ABG pO2 ABG HCO3 ABG Base Excess ABG Hemoglobin Oxyhemoglobin Sodium Potassium Chloride Carbon Dioxide BUN Creatinine Glucose POC Glucose 204 H Lactic Acid Calcium Phosphorus Magnesium Direct Bilirubin AST ALT Alkaline Phosphatase Lactate Dehydrogenase Troponin T C-Reactive Protein Total Protein Albumin Prealbumin Triglycerides Cholesterol LDL Cholesterol Direct HDL Cholesterol Urine pH Urine WBC (Auto) 68.0 H Urine Creatinine 106.1 H Urine Total Protein Fluid Total Protein Vancomycin Trough Rheumatoid Factor Complement C4 Miscellaneous Test Crossmatch 09/07/16 09/07/16 09/07/16 04:50 06:19 06:39 WBC RBC Hgb Hct MCV MCH MCHC RDW Plt Count Lymph % (Auto) [place] % (Auto) Lymph # [place] # Baso # Seg Neutrophils % Seg Neuts % (Manual) Lymphocytes % (Manual) Monocytes % (Manual) Eosinophils % (Manual) Basophils % (Manual) Nucleated RBC % Seg Neutrophils # Seg Neutrophils # Man Lymphocytes # (Manual) Monocytes # (Manual) Eosinophils # (Manual) PT INR Fibrinogen dRVVT Confirm Interp Factor V Activity POC ABG pH 7.457 H POC ABG pCO2 32.1 L POC ABG pO2 76 L ABG pO2 ABG HCO3 ABG Base Excess ABG Hemoglobin Oxyhemoglobin Sodium 132 L Potassium Chloride 94.7 L Carbon Dioxide BUN 53 H Creatinine 2.9 H Glucose 151 H POC Glucose 149 H Lactic Acid Calcium Phosphorus Magnesium Direct Bilirubin AST ALT Alkaline Phosphatase Lactate Dehydrogenase Troponin T C-Reactive Protein Total Protein Albumin Prealbumin Triglycerides Cholesterol LDL Cholesterol Direct HDL Cholesterol Urine pH Urine WBC (Auto) Urine Creatinine Urine Total Protein Fluid Total Protein Vancomycin Trough Rheumatoid Factor Complement C4 Miscellaneous Test Crossmatch 09/07/16 09/07/16 09/07/16 09:20 11:43 11:43 WBC 19.4 H RBC Hgb 8.3 L Hct 26.4 L D MCV 72 L D MCH 22 L MCHC RDW 17.9 H Plt Count Lymph % (Auto) 8.5 L [place] % (Auto) Lymph # [place] # 1.0 H Baso # Seg Neutrophils % 85.8 H Seg Neuts % (Manual) Lymphocytes % (Manual) Monocytes % (Manual) Eosinophils % (Manual) Basophils % (Manual) Nucleated RBC % Seg Neutrophils # 16.6 H Seg Neutrophils # Man Lymphocytes # (Manual) Monocytes # (Manual) Eosinophils # (Manual) PT INR Fibrinogen dRVVT Confirm Interp Factor V Activity POC ABG pH POC ABG pCO2 POC ABG pO2 ABG pO2 ABG HCO3 ABG Base Excess ABG Hemoglobin Oxyhemoglobin Sodium 134 L Potassium Chloride 97.2 L Carbon Dioxide 20 L BUN 58 H Creatinine 2.9 H Glucose 147 H POC Glucose Lactic Acid Calcium Phosphorus 2.40 L Magnesium 2.40 H Direct Bilirubin AST ALT Alkaline Phosphatase Lactate Dehydrogenase Troponin T C-Reactive Protein Total Protein 5.8 L Albumin 2.2 L Prealbumin Triglycerides Cholesterol LDL Cholesterol Direct HDL Cholesterol Urine pH Urine WBC (Auto) Urine Creatinine Urine Total Protein Fluid Total Protein Vancomycin Trough Rheumatoid Factor Complement C4 58 H Miscellaneous Test Crossmatch 09/07/16 09/07/16 09/07/16 11:50 16:00 17:31 WBC RBC Hgb Hct MCV MCH MCHC RDW Plt Count Lymph % (Auto) [place] % (Auto) Lymph # [place] # Baso # Seg Neutrophils % Seg Neuts % (Manual) Lymphocytes % (Manual) Monocytes % (Manual) Eosinophils % (Manual) Basophils % (Manual) Nucleated RBC % Seg Neutrophils # Seg Neutrophils # Man Lymphocytes # (Manual) Monocytes # (Manual) Eosinophils # (Manual) PT INR Fibrinogen dRVVT Confirm Interp Factor V Activity POC ABG pH POC ABG pCO2 POC ABG pO2 158 H ABG pO2 ABG HCO3 ABG Base Excess ABG Hemoglobin Oxyhemoglobin Sodium Potassium Chloride Carbon Dioxide BUN Creatinine Glucose POC Glucose 175 H Lactic Acid Calcium Phosphorus Magnesium Direct Bilirubin AST ALT Alkaline Phosphatase Lactate Dehydrogenase Troponin T C-Reactive Protein Total Protein Albumin Prealbumin Triglycerides Cholesterol LDL Cholesterol Direct HDL Cholesterol Urine pH Urine WBC (Auto) Urine Creatinine 66.3 H Urine Total Protein Fluid Total Protein Vancomycin Trough Rheumatoid Factor Complement C4 Miscellaneous Test Crossmatch 09/07/16 09/08/16 09/08/16 23:50 05:46 06:18 WBC 17.8 H RBC 3.58 L Hgb 8.1 L Hct 25.5 L MCV 71 L MCH 23 L MCHC RDW 18.4 H Plt Count Lymph % (Auto) [place] % (Auto) Lymph # [place] # Baso # Seg Neutrophils % Seg Neuts % (Manual) 92.0 H Lymphocytes % (Manual) 6.0 L Monocytes % (Manual) Eosinophils % (Manual) Basophils % (Manual) Nucleated RBC % Seg Neutrophils # Seg Neutrophils # Man 16.4 H Lymphocytes # (Manual) 1.1 L Monocytes # (Manual) Eosinophils # (Manual) PT INR Fibrinogen dRVVT Confirm Interp Factor V Activity POC ABG pH POC ABG pCO2 34.3 L POC ABG pO2 71 L ABG pO2 ABG HCO3 ABG Base Excess ABG Hemoglobin Oxyhemoglobin Sodium Potassium Chloride Carbon Dioxide BUN Creatinine Glucose POC Glucose 216 H Lactic Acid Calcium Phosphorus Magnesium Direct Bilirubin AST ALT Alkaline Phosphatase Lactate Dehydrogenase Troponin T C-Reactive Protein Total Protein Albumin Prealbumin Triglycerides Cholesterol LDL Cholesterol Direct HDL Cholesterol Urine pH Urine WBC (Auto) Urine Creatinine Urine Total Protein Fluid Total Protein Vancomycin Trough Rheumatoid Factor Complement C4 Miscellaneous Test Crossmatch 09/08/16 09/08/16 09/08/16 06:18 06:51 10:55 WBC RBC Hgb Hct MCV MCH MCHC RDW Plt Count Lymph % (Auto) [place] % (Auto) Lymph # [place] # Baso # Seg Neutrophils % Seg Neuts % (Manual) Lymphocytes % (Manual) Monocytes % (Manual) Eosinophils % (Manual) Basophils % (Manual) Nucleated RBC % Seg Neutrophils # Seg Neutrophils # Man Lymphocytes # (Manual) Monocytes # (Manual) Eosinophils # (Manual) PT INR Fibrinogen dRVVT Confirm Interp Factor V Activity POC ABG pH POC ABG pCO2 POC ABG pO2 ABG pO2 ABG HCO3 ABG Base Excess ABG Hemoglobin Oxyhemoglobin Sodium 133 L Potassium Chloride 96.9 L Carbon Dioxide 20 L BUN 63 H Creatinine 2.7 H Glucose 195 H POC Glucose 204 H 169 H Lactic Acid Calcium Phosphorus Magnesium Direct Bilirubin AST ALT Alkaline Phosphatase Lactate Dehydrogenase Troponin T C-Reactive Protein Total Protein Albumin Prealbumin Triglycerides Cholesterol LDL Cholesterol Direct HDL Cholesterol Urine pH Urine WBC (Auto) Urine Creatinine Urine Total Protein Fluid Total Protein Vancomycin Trough Rheumatoid Factor Complement C4 Miscellaneous Test Crossmatch 09/08/16 09/08/16 09/08/16 11:48 11:48 11:48 WBC RBC Hgb Hct MCV MCH MCHC RDW Plt Count Lymph % (Auto) [place] % (Auto) Lymph # [place] # Baso # Seg Neutrophils % Seg Neuts % (Manual) Lymphocytes % (Manual) Monocytes % (Manual) Eosinophils % (Manual) Basophils % (Manual) Nucleated RBC % Seg Neutrophils # Seg Neutrophils # Man Lymphocytes # (Manual) Monocytes # (Manual) Eosinophils # (Manual) PT INR Fibrinogen 750 H dRVVT Confirm Interp Factor V Activity POC ABG pH POC ABG pCO2 POC ABG pO2 ABG pO2 ABG HCO3 ABG Base Excess ABG Hemoglobin Oxyhemoglobin Sodium Potassium Chloride Carbon Dioxide BUN Creatinine Glucose POC Glucose Lactic Acid Calcium Phosphorus Magnesium Direct Bilirubin AST ALT Alkaline Phosphatase Lactate Dehydrogenase Troponin T C-Reactive Protein 15.70 H Total Protein Albumin Prealbumin Triglycerides Cholesterol LDL Cholesterol Direct HDL Cholesterol Urine pH Urine WBC (Auto) Urine Creatinine Urine Total Protein Fluid Total Protein Vancomycin Trough Rheumatoid Factor 24 H Complement C4 Miscellaneous Test Crossmatch 09/08/16 09/08/16 09/09/16 15:35 18:25 00:24 WBC RBC Hgb Hct MCV MCH MCHC RDW Plt Count Lymph % (Auto) [place] % (Auto) Lymph # [place] # Baso # Seg Neutrophils % Seg Neuts % (Manual) Lymphocytes % (Manual) Monocytes % (Manual) Eosinophils % (Manual) Basophils % (Manual) Nucleated RBC % Seg Neutrophils # Seg Neutrophils # Man Lymphocytes # (Manual) Monocytes # (Manual) Eosinophils # (Manual) PT INR Fibrinogen dRVVT Confirm Interp Factor V Activity 182 H POC ABG pH POC ABG pCO2 POC ABG pO2 ABG pO2 ABG HCO3 ABG Base Excess ABG Hemoglobin Oxyhemoglobin Sodium Potassium Chloride Carbon Dioxide BUN Creatinine Glucose POC Glucose 184 H 216 H Lactic Acid Calcium Phosphorus Magnesium Direct Bilirubin AST ALT Alkaline Phosphatase Lactate Dehydrogenase Troponin T C-Reactive Protein Total Protein Albumin Prealbumin Triglycerides Cholesterol LDL Cholesterol Direct HDL Cholesterol Urine pH Urine WBC (Auto) Urine Creatinine Urine Total Protein Fluid Total Protein Vancomycin Trough Rheumatoid Factor Complement C4 Miscellaneous Test Crossmatch 09/09/16 09/09/16 09/09/16 03:00 03:00 04:04 WBC 27.9 H RBC Hgb 8.7 L Hct 28.1 L MCV 72 L MCH 22 L MCHC RDW 18.4 H Plt Count 485 H Lymph % (Auto) [place] % (Auto) Lymph # [place] # Baso # Seg Neutrophils % Seg Neuts % (Manual) 77.0 H Lymphocytes % (Manual) 9.0 L Monocytes % (Manual) Eosinophils % (Manual) Basophils % (Manual) Nucleated RBC % Seg Neutrophils # Seg Neutrophils # Man 21.5 H Lymphocytes # (Manual) Monocytes # (Manual) 2.0 H Eosinophils # (Manual) PT INR Fibrinogen dRVVT Confirm Interp Factor V Activity POC ABG pH POC ABG pCO2 POC ABG pO2 121 H ABG pO2 ABG HCO3 ABG Base Excess ABG Hemoglobin Oxyhemoglobin Sodium 135 L Potassium Chloride 96.3 L Carbon Dioxide 21 L BUN 83 H Creatinine 3.0 H Glucose 135 H POC Glucose Lactic Acid Calcium Phosphorus Magnesium Direct Bilirubin AST ALT Alkaline Phosphatase Lactate Dehydrogenase Troponin T C-Reactive Protein Total Protein Albumin Prealbumin Triglycerides Cholesterol LDL Cholesterol Direct HDL Cholesterol Urine pH Urine WBC (Auto) Urine Creatinine Urine Total Protein Fluid Total Protein Vancomycin Trough Rheumatoid Factor Complement C4 Miscellaneous Test Crossmatch 09/09/16 09/09/16 09/09/16 05:41 11:55 14:13 WBC RBC Hgb Hct MCV MCH MCHC RDW Plt Count Lymph % (Auto) [place] % (Auto) Lymph # [place] # Baso # Seg Neutrophils % Seg Neuts % (Manual) Lymphocytes % (Manual) Monocytes % (Manual) Eosinophils % (Manual) Basophils % (Manual) Nucleated RBC % Seg Neutrophils # Seg Neutrophils # Man Lymphocytes # (Manual) Monocytes # (Manual) Eosinophils # (Manual) PT INR Fibrinogen dRVVT Confirm Interp Factor V Activity POC ABG pH POC ABG pCO2 POC ABG pO2 ABG pO2 ABG HCO3 ABG Base Excess ABG Hemoglobin Oxyhemoglobin Sodium Potassium Chloride Carbon Dioxide BUN Creatinine Glucose POC Glucose 155 H 186 H Lactic Acid Calcium Phosphorus Magnesium Direct Bilirubin AST ALT Alkaline Phosphatase Lactate Dehydrogenase Troponin T C-Reactive Protein Total Protein Albumin Prealbumin Triglycerides Cholesterol LDL Cholesterol Direct HDL Cholesterol Urine pH Urine WBC (Auto) 25.0 H Urine Creatinine Urine Total Protein Fluid Total Protein Vancomycin Trough Rheumatoid Factor Complement C4 Miscellaneous Test Crossmatch 09/09/16 09/09/16 09/10/16 17:33 23:13 05:09 WBC RBC Hgb Hct MCV MCH MCHC RDW Plt Count Lymph % (Auto) [place] % (Auto) Lymph # [place] # Baso # Seg Neutrophils % Seg Neuts % (Manual) Lymphocytes % (Manual) Monocytes % (Manual) Eosinophils % (Manual) Basophils % (Manual) Nucleated RBC % Seg Neutrophils # Seg Neutrophils # Man Lymphocytes # (Manual) Monocytes # (Manual) Eosinophils # (Manual) PT INR Fibrinogen dRVVT Confirm Interp Factor V Activity POC ABG pH POC ABG pCO2 POC ABG pO2 74 L ABG pO2 ABG HCO3 ABG Base Excess ABG Hemoglobin Oxyhemoglobin Sodium Potassium Chloride Carbon Dioxide BUN Creatinine Glucose POC Glucose 211 H 215 H Lactic Acid Calcium Phosphorus Magnesium Direct Bilirubin AST ALT Alkaline Phosphatase Lactate Dehydrogenase Troponin T C-Reactive Protein Total Protein Albumin Prealbumin Triglycerides Cholesterol LDL Cholesterol Direct HDL Cholesterol Urine pH Urine WBC (Auto) Urine Creatinine Urine Total Protein Fluid Total Protein Vancomycin Trough Rheumatoid Factor Complement C4 Miscellaneous Test Crossmatch 09/10/16 09/10/16 09/10/16 05:17 05:17 11:31 WBC 15.8 H RBC 3.25 L Hgb 7.3 L Hct 22.9 L MCV 71 L MCH 23 L MCHC RDW 18.4 H Plt Count Lymph % (Auto) [place] % (Auto) Lymph # [place] # Baso # Seg Neutrophils % Seg Neuts % (Manual) 91.0 H Lymphocytes % (Manual) 4.0 L Monocytes % (Manual) Eosinophils % (Manual) Basophils % (Manual) Nucleated RBC % Seg Neutrophils # Seg Neutrophils # Man 14.4 H Lymphocytes # (Manual) 0.6 L Monocytes # (Manual) Eosinophils # (Manual) PT INR Fibrinogen dRVVT Confirm Interp Factor V Activity POC ABG pH POC ABG pCO2 POC ABG pO2 ABG pO2 ABG HCO3 ABG Base Excess ABG Hemoglobin Oxyhemoglobin Sodium Potassium Chloride Carbon Dioxide 21 L BUN 93 H Creatinine 2.9 H Glucose 146 H POC Glucose 188 H Lactic Acid Calcium 8.1 L Phosphorus Magnesium Direct Bilirubin AST ALT Alkaline Phosphatase Lactate Dehydrogenase Troponin T C-Reactive Protein Total Protein Albumin Prealbumin Triglycerides Cholesterol LDL Cholesterol Direct HDL Cholesterol Urine pH Urine WBC (Auto) Urine Creatinine Urine Total Protein Fluid Total Protein Vancomycin Trough Rheumatoid Factor Complement C4 Miscellaneous Test Crossmatch 09/10/16 09/10/16 09/10/16 13:17 17:20 23:32 WBC RBC Hgb Hct MCV MCH MCHC RDW Plt Count Lymph % (Auto) [place] % (Auto) Lymph # [place] # Baso # Seg Neutrophils % Seg Neuts % (Manual) Lymphocytes % (Manual) Monocytes % (Manual) Eosinophils % (Manual) Basophils % (Manual) Nucleated RBC % Seg Neutrophils # Seg Neutrophils # Man Lymphocytes # (Manual) Monocytes # (Manual) Eosinophils # (Manual) PT INR Fibrinogen dRVVT Confirm Interp Factor V Activity POC ABG pH POC ABG pCO2 POC ABG pO2 ABG pO2 ABG HCO3 ABG Base Excess ABG Hemoglobin Oxyhemoglobin Sodium Potassium Chloride Carbon Dioxide BUN Creatinine Glucose POC Glucose 199 H 186 H Lactic Acid Calcium Phosphorus Magnesium Direct Bilirubin AST ALT Alkaline Phosphatase Lactate Dehydrogenase Troponin T C-Reactive Protein Total Protein Albumin Prealbumin Triglycerides Cholesterol LDL Cholesterol Direct HDL Cholesterol Urine pH Urine WBC (Auto) Urine Creatinine Urine Total Protein Fluid Total Protein Vancomycin Trough Rheumatoid Factor Complement C4 Miscellaneous Test Crossmatch See Detail 09/11/16 09/11/16 09/11/16 05:10 05:10 05:17 WBC 28.4 H RBC Hgb 9.2 L Hct 29.3 L D MCV 73 L MCH 23 L MCHC RDW 18.9 H Plt Count 452 H Lymph % (Auto) [place] % (Auto) Lymph # [place] # Baso # Seg Neutrophils % Seg Neuts % (Manual) 89.5 H Lymphocytes % (Manual) 2.0 L Monocytes % (Manual) Eosinophils % (Manual) Basophils % (Manual) Nucleated RBC % Seg Neutrophils # Seg Neutrophils # Man 25.4 H Lymphocytes # (Manual) 0.6 L Monocytes # (Manual) 1.3 H Eosinophils # (Manual) PT INR Fibrinogen dRVVT Confirm Interp Factor V Activity POC ABG pH POC ABG pCO2 POC ABG pO2 ABG pO2 ABG HCO3 ABG Base Excess ABG Hemoglobin Oxyhemoglobin Sodium 136 L Potassium Chloride Carbon Dioxide 18 L BUN 107 H Creatinine 2.6 H Glucose 187 H POC Glucose 230 H Lactic Acid Calcium 8.3 L Phosphorus Magnesium Direct Bilirubin AST ALT Alkaline Phosphatase Lactate Dehydrogenase Troponin T C-Reactive Protein Total Protein Albumin Prealbumin Triglycerides Cholesterol LDL Cholesterol Direct HDL Cholesterol Urine pH Urine WBC (Auto) Urine Creatinine Urine Total Protein Fluid Total Protein Vancomycin Trough Rheumatoid Factor Complement C4 Miscellaneous Test Crossmatch 09/11/16 09/11/16 09/11/16 05:55 12:02 17:32 WBC RBC Hgb Hct MCV MCH MCHC RDW Plt Count Lymph % (Auto) [place] % (Auto) Lymph # [place] # Baso # Seg Neutrophils % Seg Neuts % (Manual) Lymphocytes % (Manual) Monocytes % (Manual) Eosinophils % (Manual) Basophils % (Manual) Nucleated RBC % Seg Neutrophils # Seg Neutrophils # Man Lymphocytes # (Manual) Monocytes # (Manual) Eosinophils # (Manual) PT INR Fibrinogen dRVVT Confirm Interp Factor V Activity POC ABG pH POC ABG pCO2 33.8 L POC ABG pO2 ABG pO2 ABG HCO3 ABG Base Excess ABG Hemoglobin Oxyhemoglobin Sodium Potassium Chloride Carbon Dioxide BUN Creatinine Glucose POC Glucose 191 H 239 H Lactic Acid Calcium Phosphorus Magnesium Direct Bilirubin AST ALT Alkaline Phosphatase Lactate Dehydrogenase Troponin T C-Reactive Protein Total Protein Albumin Prealbumin Triglycerides Cholesterol LDL Cholesterol Direct HDL Cholesterol Urine pH Urine WBC (Auto) Urine Creatinine Urine Total Protein Fluid Total Protein Vancomycin Trough Rheumatoid Factor Complement C4 Miscellaneous Test Crossmatch 09/11/16 09/12/16 09/12/16 23:52 05:09 05:32 WBC RBC Hgb Hct MCV MCH MCHC RDW Plt Count Lymph % (Auto) [place] % (Auto) Lymph # [place] # Baso # Seg Neutrophils % Seg Neuts % (Manual) Lymphocytes % (Manual) Monocytes % (Manual) Eosinophils % (Manual) Basophils % (Manual) Nucleated RBC % Seg Neutrophils # Seg Neutrophils # Man Lymphocytes # (Manual) Monocytes # (Manual) Eosinophils # (Manual) PT INR Fibrinogen dRVVT Confirm Interp Factor V Activity POC ABG pH POC ABG pCO2 34.6 L POC ABG pO2 ABG pO2 ABG HCO3 ABG Base Excess ABG Hemoglobin Oxyhemoglobin Sodium Potassium Chloride Carbon Dioxide BUN Creatinine Glucose POC Glucose 265 H 184 H Lactic Acid Calcium Phosphorus Magnesium Direct Bilirubin AST ALT Alkaline Phosphatase Lactate Dehydrogenase Troponin T C-Reactive Protein Total Protein Albumin Prealbumin Triglycerides Cholesterol LDL Cholesterol Direct HDL Cholesterol Urine pH Urine WBC (Auto) Urine Creatinine Urine Total Protein Fluid Total Protein Vancomycin Trough Rheumatoid Factor Complement C4 Miscellaneous Test Crossmatch 09/12/16 09/12/16 09/12/16 06:45 06:45 07:22 WBC 31.7 H RBC 3.54 L Hgb 8.3 L Hct 25.9 L MCV 73 L MCH 23 L MCHC RDW 18.9 H Plt Count Lymph % (Auto) [place] % (Auto) Lymph # [place] # Baso # Seg Neutrophils % Seg Neuts % (Manual) 88.5 H Lymphocytes % (Manual) 4.5 L Monocytes % (Manual) Eosinophils % (Manual) Basophils % (Manual) Nucleated RBC % Seg Neutrophils # Seg Neutrophils # Man 28.1 H Lymphocytes # (Manual) Monocytes # (Manual) 1.0 H Eosinophils # (Manual) PT INR Fibrinogen dRVVT Confirm Interp Factor V Activity POC ABG pH POC ABG pCO2 POC ABG pO2 ABG pO2 ABG HCO3 ABG Base Excess ABG Hemoglobin Oxyhemoglobin Sodium Potassium Chloride Carbon Dioxide 20 L BUN 115 H Creatinine 2.7 H Glucose 165 H POC Glucose Lactic Acid Calcium 8.0 L Phosphorus Magnesium Direct Bilirubin AST ALT Alkaline Phosphatase Lactate Dehydrogenase Troponin T C-Reactive Protein Total Protein Albumin Prealbumin Triglycerides 217 H Cholesterol LDL Cholesterol Direct HDL Cholesterol Urine pH Urine WBC (Auto) Urine Creatinine Urine Total Protein Fluid Total Protein Vancomycin Trough Rheumatoid Factor Complement C4 Miscellaneous Test Crossmatch 09/12/16 09/12/16 09/12/16 07:22 09:59 12:21 WBC RBC Hgb Hct MCV MCH MCHC RDW Plt Count Lymph % (Auto) [place] % (Auto) Lymph # [place] # Baso # Seg Neutrophils % Seg Neuts % (Manual) Lymphocytes % (Manual) Monocytes % (Manual) Eosinophils % (Manual) Basophils % (Manual) Nucleated RBC % Seg Neutrophils # Seg Neutrophils # Man Lymphocytes # (Manual) Monocytes # (Manual) Eosinophils # (Manual) PT INR Fibrinogen dRVVT Confirm Interp Positive H Factor V Activity POC ABG pH POC ABG pCO2 POC ABG pO2 ABG pO2 ABG HCO3 ABG Base Excess ABG Hemoglobin Oxyhemoglobin Sodium Potassium Chloride Carbon Dioxide BUN Creatinine Glucose POC Glucose 224 H Lactic Acid Calcium Phosphorus Magnesium Direct Bilirubin AST ALT Alkaline Phosphatase Lactate Dehydrogenase Troponin T C-Reactive Protein 1.70 H Total Protein Albumin Prealbumin Triglycerides Cholesterol LDL Cholesterol Direct HDL Cholesterol Urine pH Urine WBC (Auto) Urine Creatinine Urine Total Protein Fluid Total Protein Vancomycin Trough Rheumatoid Factor Complement C4 Miscellaneous Test Crossmatch 09/12/16 09/12/16 09/13/16 16:51 23:28 04:00 WBC 45.0 H* RBC Hgb 9.4 L Hct MCV 75 L MCH 23 L MCHC RDW 19.0 H Plt Count 470 H Lymph % (Auto) [place] % (Auto) Lymph # [place] # Baso # Seg Neutrophils % Seg Neuts % (Manual) 89.0 H Lymphocytes % (Manual) 5.0 L Monocytes % (Manual) Eosinophils % (Manual) Basophils % (Manual) Nucleated RBC % Seg Neutrophils # Seg Neutrophils # Man 40.1 H Lymphocytes # (Manual) Monocytes # (Manual) Eosinophils # (Manual) PT INR Fibrinogen dRVVT Confirm Interp Factor V Activity POC ABG pH POC ABG pCO2 POC ABG pO2 ABG pO2 ABG HCO3 ABG Base Excess ABG Hemoglobin Oxyhemoglobin Sodium Potassium Chloride Carbon Dioxide BUN Creatinine Glucose POC Glucose 169 H 150 H Lactic Acid Calcium Phosphorus Magnesium Direct Bilirubin AST ALT Alkaline Phosphatase Lactate Dehydrogenase Troponin T C-Reactive Protein Total Protein Albumin Prealbumin Triglycerides Cholesterol LDL Cholesterol Direct HDL Cholesterol Urine pH Urine WBC (Auto) Urine Creatinine Urine Total Protein Fluid Total Protein Vancomycin Trough Rheumatoid Factor Complement C4 Miscellaneous Test Crossmatch 09/13/16 09/13/16 09/13/16 04:00 11:26 17:31 WBC RBC Hgb Hct MCV MCH MCHC RDW Plt Count Lymph % (Auto) [place] % (Auto) Lymph # [place] # Baso # Seg Neutrophils % Seg Neuts % (Manual) Lymphocytes % (Manual) Monocytes % (Manual) Eosinophils % (Manual) Basophils % (Manual) Nucleated RBC % Seg Neutrophils # Seg Neutrophils # Man Lymphocytes # (Manual) Monocytes # (Manual) Eosinophils # (Manual) PT INR Fibrinogen dRVVT Confirm Interp Factor V Activity POC ABG pH POC ABG pCO2 POC ABG pO2 ABG pO2 ABG HCO3 ABG Base Excess ABG Hemoglobin Oxyhemoglobin Sodium Potassium Chloride Carbon Dioxide 20 L BUN 116 H Creatinine 3.0 H Glucose 172 H POC Glucose 140 H 183 H Lactic Acid Calcium Phosphorus Magnesium Direct Bilirubin AST ALT Alkaline Phosphatase Lactate Dehydrogenase Troponin T C-Reactive Protein Total Protein 6.2 L Albumin 2.9 L Prealbumin Triglycerides Cholesterol LDL Cholesterol Direct HDL Cholesterol Urine pH Urine WBC (Auto) Urine Creatinine Urine Total Protein Fluid Total Protein Vancomycin Trough Rheumatoid Factor Complement C4 Miscellaneous Test Crossmatch 09/13/16 09/14/16 09/14/16 23:23 04:06 04:07 WBC 29.4 H RBC Hgb 8.9 L Hct 27.3 L MCV 75 L MCH 24 L MCHC RDW 19.1 H Plt Count Lymph % (Auto) [place] % (Auto) Lymph # [place] # Baso # Seg Neutrophils % Seg Neuts % (Manual) 84.0 H Lymphocytes % (Manual) 6.0 L Monocytes % (Manual) 9.0 H Eosinophils % (Manual) Basophils % (Manual) Nucleated RBC % Seg Neutrophils # Seg Neutrophils # Man 24.7 H Lymphocytes # (Manual) Monocytes # (Manual) 2.6 H Eosinophils # (Manual) PT INR Fibrinogen dRVVT Confirm Interp Factor V Activity POC ABG pH 7.342 L POC ABG pCO2 POC ABG pO2 116 H ABG pO2 ABG HCO3 ABG Base Excess ABG Hemoglobin Oxyhemoglobin Sodium Potassium Chloride Carbon Dioxide BUN Creatinine Glucose POC Glucose 154 H Lactic Acid Calcium Phosphorus Magnesium Direct Bilirubin AST ALT Alkaline Phosphatase Lactate Dehydrogenase Troponin T C-Reactive Protein Total Protein Albumin Prealbumin Triglycerides Cholesterol LDL Cholesterol Direct HDL Cholesterol Urine pH Urine WBC (Auto) Urine Creatinine Urine Total Protein Fluid Total Protein Vancomycin Trough Rheumatoid Factor Complement C4 Miscellaneous Test Crossmatch 09/14/16 09/14/16 09/14/16 04:07 05:29 12:19 WBC RBC Hgb Hct MCV MCH MCHC RDW Plt Count Lymph % (Auto) [place] % (Auto) Lymph # [place] # Baso # Seg Neutrophils % Seg Neuts % (Manual) Lymphocytes % (Manual) Monocytes % (Manual) Eosinophils % (Manual) Basophils % (Manual) Nucleated RBC % Seg Neutrophils # Seg Neutrophils # Man Lymphocytes # (Manual) Monocytes # (Manual) Eosinophils # (Manual) PT INR Fibrinogen dRVVT Confirm Interp Factor V Activity POC ABG pH POC ABG pCO2 POC ABG pO2 ABG pO2 ABG HCO3 ABG Base Excess ABG Hemoglobin Oxyhemoglobin Sodium 136 L Potassium Chloride Carbon Dioxide 18 L BUN 121 H Creatinine 2.8 H Glucose 214 H POC Glucose 239 H 181 H Lactic Acid Calcium Phosphorus Magnesium Direct Bilirubin AST ALT Alkaline Phosphatase Lactate Dehydrogenase Troponin T C-Reactive Protein Total Protein Albumin Prealbumin Triglycerides Cholesterol LDL Cholesterol Direct HDL Cholesterol Urine pH Urine WBC (Auto) Urine Creatinine Urine Total Protein Fluid Total Protein Vancomycin Trough Rheumatoid Factor Complement C4 Miscellaneous Test Crossmatch 09/14/16 09/14/16 09/15/16 18:12 23:37 05:00 WBC 26.1 H RBC 3.05 L Hgb 7.2 L Hct 22.9 L MCV 75 L MCH 24 L MCHC RDW 19.0 H Plt Count Lymph % (Auto) [place] % (Auto) Lymph # [place] # Baso # Seg Neutrophils % Seg Neuts % (Manual) Lymphocytes % (Manual) Monocytes % (Manual) Eosinophils % (Manual) Basophils % (Manual) Nucleated RBC % Seg Neutrophils # Seg Neutrophils # Man Lymphocytes # (Manual) Monocytes # (Manual) Eosinophils # (Manual) PT INR Fibrinogen dRVVT Confirm Interp Factor V Activity POC ABG pH POC ABG pCO2 POC ABG pO2 ABG pO2 ABG HCO3 ABG Base Excess ABG Hemoglobin Oxyhemoglobin Sodium Potassium Chloride Carbon Dioxide BUN Creatinine Glucose POC Glucose 266 H 154 H Lactic Acid Calcium Phosphorus Magnesium Direct Bilirubin AST ALT Alkaline Phosphatase Lactate Dehydrogenase Troponin T C-Reactive Protein Total Protein Albumin Prealbumin Triglycerides Cholesterol LDL Cholesterol Direct HDL Cholesterol Urine pH Urine WBC (Auto) Urine Creatinine Urine Total Protein Fluid Total Protein Vancomycin Trough Rheumatoid Factor Complement C4 Miscellaneous Test Crossmatch 09/15/16 09/15/16 09/15/16 05:00 05:17 12:45 WBC RBC Hgb Hct MCV MCH MCHC RDW Plt Count Lymph % (Auto) [place] % (Auto) Lymph # [place] # Baso # Seg Neutrophils % Seg Neuts % (Manual) Lymphocytes % (Manual) Monocytes % (Manual) Eosinophils % (Manual) Basophils % (Manual) Nucleated RBC % Seg Neutrophils # Seg Neutrophils # Man Lymphocytes # (Manual) Monocytes # (Manual) Eosinophils # (Manual) PT INR Fibrinogen dRVVT Confirm Interp Factor V Activity POC ABG pH POC ABG pCO2 POC ABG pO2 ABG pO2 ABG HCO3 ABG Base Excess ABG Hemoglobin Oxyhemoglobin Sodium Potassium 5.2 H Chloride Carbon Dioxide 18 L BUN 139 H Creatinine 3.7 H Glucose 227 H POC Glucose 226 H 244 H Lactic Acid Calcium 8.3 L Phosphorus Magnesium Direct Bilirubin AST ALT Alkaline Phosphatase Lactate Dehydrogenase Troponin T C-Reactive Protein Total Protein Albumin Prealbumin Triglycerides Cholesterol LDL Cholesterol Direct HDL Cholesterol Urine pH Urine WBC (Auto) Urine Creatinine Urine Total Protein Fluid Total Protein Vancomycin Trough Rheumatoid Factor Complement C4 Miscellaneous Test Crossmatch 09/15/16 09/15/16 09/15/16 14:32 17:33 23:35 WBC RBC Hgb Hct MCV MCH MCHC RDW Plt Count Lymph % (Auto) [place] % (Auto) Lymph # [place] # Baso # Seg Neutrophils % Seg Neuts % (Manual) Lymphocytes % (Manual) Monocytes % (Manual) Eosinophils % (Manual) Basophils % (Manual) Nucleated RBC % Seg Neutrophils # Seg Neutrophils # Man Lymphocytes # (Manual) Monocytes # (Manual) Eosinophils # (Manual) PT INR Fibrinogen dRVVT Confirm Interp Factor V Activity POC ABG pH POC ABG pCO2 27.7 L POC ABG pO2 120 H ABG pO2 ABG HCO3 ABG Base Excess ABG Hemoglobin Oxyhemoglobin Sodium Potassium Chloride Carbon Dioxide BUN Creatinine Glucose POC Glucose 232 H 167 H Lactic Acid Calcium Phosphorus Magnesium Direct Bilirubin AST ALT Alkaline Phosphatase Lactate Dehydrogenase Troponin T C-Reactive Protein Total Protein Albumin Prealbumin Triglycerides Cholesterol LDL Cholesterol Direct HDL Cholesterol Urine pH Urine WBC (Auto) Urine Creatinine Urine Total Protein Fluid Total Protein Vancomycin Trough Rheumatoid Factor Complement C4 Miscellaneous Test Crossmatch 09/16/16 09/16/16 09/16/16 03:58 10:27 10:27 WBC 19.0 H RBC 2.77 L Hgb 6.5 L Hct 20.9 L MCV 76 L MCH 23 L MCHC RDW 19.3 H Plt Count Lymph % (Auto) 11.0 L [place] % (Auto) Lymph # [place] # 1.1 H Baso # Seg Neutrophils % 82.5 H Seg Neuts % (Manual) Lymphocytes % (Manual) Monocytes % (Manual) Eosinophils % (Manual) Basophils % (Manual) Nucleated RBC % Seg Neutrophils # 15.7 H Seg Neutrophils # Man Lymphocytes # (Manual) Monocytes # (Manual) Eosinophils # (Manual) PT INR Fibrinogen dRVVT Confirm Interp Factor V Activity POC ABG pH POC ABG pCO2 POC ABG pO2 ABG pO2 ABG HCO3 ABG Base Excess ABG Hemoglobin Oxyhemoglobin Sodium Potassium Chloride 109.3 H Carbon Dioxide 18 L BUN 139 H Creatinine 4.1 H Glucose 144 H POC Glucose 146 H Lactic Acid Calcium 8.1 L Phosphorus Magnesium Direct Bilirubin AST ALT Alkaline Phosphatase Lactate Dehydrogenase Troponin T C-Reactive Protein Total Protein Albumin Prealbumin Triglycerides Cholesterol LDL Cholesterol Direct HDL Cholesterol Urine pH Urine WBC (Auto) Urine Creatinine Urine Total Protein Fluid Total Protein Vancomycin Trough Rheumatoid Factor Complement C4 Miscellaneous Test Crossmatch 09/16/16 09/16/16 09/16/16 12:04 12:10 13:55 WBC RBC Hgb Hct MCV MCH MCHC RDW Plt Count Lymph % (Auto) [place] % (Auto) Lymph # [place] # Baso # Seg Neutrophils % Seg Neuts % (Manual) Lymphocytes % (Manual) Monocytes % (Manual) Eosinophils % (Manual) Basophils % (Manual) Nucleated RBC % Seg Neutrophils # Seg Neutrophils # Man Lymphocytes # (Manual) Monocytes # (Manual) Eosinophils # (Manual) PT INR Fibrinogen dRVVT Confirm Interp Factor V Activity POC ABG pH POC ABG pCO2 32.9 L POC ABG pO2 ABG pO2 ABG HCO3 ABG Base Excess ABG Hemoglobin Oxyhemoglobin Sodium Potassium Chloride Carbon Dioxide BUN Creatinine Glucose POC Glucose 185 H Lactic Acid Calcium Phosphorus Magnesium Direct Bilirubin AST ALT Alkaline Phosphatase Lactate Dehydrogenase Troponin T C-Reactive Protein Total Protein Albumin Prealbumin Triglycerides Cholesterol LDL Cholesterol Direct HDL Cholesterol Urine pH Urine WBC (Auto) Urine Creatinine Urine Total Protein Fluid Total Protein Vancomycin Trough Rheumatoid Factor Complement C4 Miscellaneous Test Crossmatch See Detail 09/16/16 09/16/16 09/16/16 17:55 19:19 23:48 WBC RBC Hgb Hct MCV MCH MCHC RDW Plt Count Lymph % (Auto) [place] % (Auto) Lymph # [place] # Baso # Seg Neutrophils % Seg Neuts % (Manual) Lymphocytes % (Manual) Monocytes % (Manual) Eosinophils % (Manual) Basophils % (Manual) Nucleated RBC % Seg Neutrophils # Seg Neutrophils # Man Lymphocytes # (Manual) Monocytes # (Manual) Eosinophils # (Manual) PT INR Fibrinogen dRVVT Confirm Interp Factor V Activity POC ABG pH POC ABG pCO2 POC ABG pO2 ABG pO2 ABG HCO3 ABG Base Excess ABG Hemoglobin Oxyhemoglobin Sodium Potassium Chloride Carbon Dioxide BUN Creatinine Glucose POC Glucose 222 H 107 H Lactic Acid Calcium Phosphorus Magnesium Direct Bilirubin AST ALT Alkaline Phosphatase Lactate Dehydrogenase Troponin T C-Reactive Protein Total Protein Albumin Prealbumin Triglycerides Cholesterol LDL Cholesterol Direct HDL Cholesterol Urine pH Urine WBC (Auto) Urine Creatinine 47.4 H Urine Total Protein 16 H Fluid Total Protein Vancomycin Trough Rheumatoid Factor Complement C4 Miscellaneous Test Crossmatch 09/17/16 09/17/16 09/17/16 03:45 03:45 04:55 WBC 19.6 H RBC 3.41 L Hgb 8.5 L Hct 26.7 L MCV 78 L MCH 25 L MCHC RDW 19.9 H Plt Count Lymph % (Auto) 9.3 L [place] % (Auto) Lymph # [place] # 1.2 H Baso # Seg Neutrophils % 83.9 H Seg Neuts % (Manual) Lymphocytes % (Manual) Monocytes % (Manual) Eosinophils % (Manual) Basophils % (Manual) Nucleated RBC % Seg Neutrophils # 16.4 H Seg Neutrophils # Man Lymphocytes # (Manual) Monocytes # (Manual) Eosinophils # (Manual) PT INR Fibrinogen dRVVT Confirm Interp Factor V Activity POC ABG pH POC ABG pCO2 POC ABG pO2 ABG pO2 ABG HCO3 ABG Base Excess ABG Hemoglobin Oxyhemoglobin Sodium 146 H Potassium 5.1 H Chloride 110.9 H Carbon Dioxide 16 L BUN 146 H Creatinine 4.0 H Glucose 108 H POC Glucose 133 H Lactic Acid Calcium Phosphorus Magnesium 3.00 H Direct Bilirubin AST ALT Alkaline Phosphatase Lactate Dehydrogenase Troponin T C-Reactive Protein Total Protein Albumin Prealbumin Triglycerides Cholesterol LDL Cholesterol Direct HDL Cholesterol Urine pH Urine WBC (Auto) Urine Creatinine Urine Total Protein Fluid Total Protein Vancomycin Trough Rheumatoid Factor Complement C4 Miscellaneous Test Crossmatch 09/17/16 09/17/16 09/17/16 11:15 17:33 23:47 WBC RBC Hgb Hct MCV MCH MCHC RDW Plt Count Lymph % (Auto) [place] % (Auto) Lymph # [place] # Baso # Seg Neutrophils % Seg Neuts % (Manual) Lymphocytes % (Manual) Monocytes % (Manual) Eosinophils % (Manual) Basophils % (Manual) Nucleated RBC % Seg Neutrophils # Seg Neutrophils # Man Lymphocytes # (Manual) Monocytes # (Manual) Eosinophils # (Manual) PT INR Fibrinogen dRVVT Confirm Interp Factor V Activity POC ABG pH POC ABG pCO2 POC ABG pO2 ABG pO2 ABG HCO3 ABG Base Excess ABG Hemoglobin Oxyhemoglobin Sodium Potassium Chloride Carbon Dioxide BUN Creatinine Glucose POC Glucose 176 H 246 H 148 H Lactic Acid Calcium Phosphorus Magnesium Direct Bilirubin AST ALT Alkaline Phosphatase Lactate Dehydrogenase Troponin T C-Reactive Protein Total Protein Albumin Prealbumin Triglycerides Cholesterol LDL Cholesterol Direct HDL Cholesterol Urine pH Urine WBC (Auto) Urine Creatinine Urine Total Protein Fluid Total Protein Vancomycin Trough Rheumatoid Factor Complement C4 Miscellaneous Test Crossmatch 09/18/16 09/18/16 09/18/16 05:33 08:31 08:31 WBC 18.0 H RBC 3.17 L Hgb 9.0 L Hct 25.7 L MCV MCH MCHC 35 H RDW 20.4 H Plt Count Lymph % (Auto) [place] % (Auto) Lymph # [place] # Baso # Seg Neutrophils % Seg Neuts % (Manual) Lymphocytes % (Manual) Monocytes % (Manual) Eosinophils % (Manual) Basophils % (Manual) Nucleated RBC % Seg Neutrophils # Seg Neutrophils # Man Lymphocytes # (Manual) Monocytes # (Manual) Eosinophils # (Manual) PT INR Fibrinogen dRVVT Confirm Interp Factor V Activity POC ABG pH POC ABG pCO2 POC ABG pO2 ABG pO2 ABG HCO3 ABG Base Excess ABG Hemoglobin Oxyhemoglobin Sodium Potassium Chloride Carbon Dioxide 15 L BUN 124 H Creatinine 3.8 H Glucose POC Glucose 120 H Lactic Acid Calcium 8.1 L Phosphorus Magnesium Direct Bilirubin AST ALT Alkaline Phosphatase Lactate Dehydrogenase Troponin T C-Reactive Protein Total Protein Albumin Prealbumin Triglycerides Cholesterol LDL Cholesterol Direct HDL Cholesterol Urine pH Urine WBC (Auto) Urine Creatinine Urine Total Protein Fluid Total Protein Vancomycin Trough Rheumatoid Factor Complement C4 Miscellaneous Test Crossmatch 09/18/16 09/18/16 09/18/16 12:03 15:34 17:50 WBC RBC Hgb Hct MCV MCH MCHC RDW Plt Count Lymph % (Auto) [place] % (Auto) Lymph # [place] # Baso # Seg Neutrophils % Seg Neuts % (Manual) Lymphocytes % (Manual) Monocytes % (Manual) Eosinophils % (Manual) Basophils % (Manual) Nucleated RBC % Seg Neutrophils # Seg Neutrophils # Man Lymphocytes # (Manual) Monocytes # (Manual) Eosinophils # (Manual) PT INR Fibrinogen dRVVT Confirm Interp Factor V Activity POC ABG pH POC ABG pCO2 25.7 L POC ABG pO2 66 L ABG pO2 ABG HCO3 ABG Base Excess ABG Hemoglobin Oxyhemoglobin Sodium Potassium Chloride Carbon Dioxide BUN Creatinine Glucose POC Glucose 156 H 220 H Lactic Acid Calcium Phosphorus Magnesium Direct Bilirubin AST ALT Alkaline Phosphatase Lactate Dehydrogenase Troponin T C-Reactive Protein Total Protein Albumin Prealbumin Triglycerides Cholesterol LDL Cholesterol Direct HDL Cholesterol Urine pH Urine WBC (Auto) Urine Creatinine Urine Total Protein Fluid Total Protein Vancomycin Trough Rheumatoid Factor Complement C4 Miscellaneous Test Crossmatch 09/19/16 09/19/16 09/19/16 06:21 09:50 09:50 WBC 17.1 H RBC 3.49 L Hgb 9.0 L Hct 28.1 L MCV MCH 26 L MCHC RDW 20.8 H Plt Count Lymph % (Auto) 11.5 L [place] % (Auto) 7.5 H Lymph # [place] # 1.3 H Baso # Seg Neutrophils % 79.8 H Seg Neuts % (Manual) Lymphocytes % (Manual) Monocytes % (Manual) Eosinophils % (Manual) Basophils % (Manual) Nucleated RBC % Seg Neutrophils # 13.7 H Seg Neutrophils # Man Lymphocytes # (Manual) Monocytes # (Manual) Eosinophils # (Manual) PT INR Fibrinogen dRVVT Confirm Interp Factor V Activity POC ABG pH POC ABG pCO2 POC ABG pO2 ABG pO2 ABG HCO3 ABG Base Excess ABG Hemoglobin Oxyhemoglobin Sodium Potassium Chloride 108.6 H Carbon Dioxide 15 L BUN 125 H Creatinine 4.1 H Glucose 124 H POC Glucose 119 H Lactic Acid Calcium Phosphorus Magnesium Direct Bilirubin AST ALT Alkaline Phosphatase Lactate Dehydrogenase Troponin T C-Reactive Protein Total Protein Albumin Prealbumin Triglycerides Cholesterol LDL Cholesterol Direct HDL Cholesterol Urine pH Urine WBC (Auto) Urine Creatinine Urine Total Protein Fluid Total Protein Vancomycin Trough Rheumatoid Factor Complement C4 Miscellaneous Test Crossmatch 09/19/16 09/19/16 09/19/16 11:25 17:53 23:36 WBC RBC Hgb Hct MCV MCH MCHC RDW Plt Count Lymph % (Auto) [place] % (Auto) Lymph # [place] # Baso # Seg Neutrophils % Seg Neuts % (Manual) Lymphocytes % (Manual) Monocytes % (Manual) Eosinophils % (Manual) Basophils % (Manual) Nucleated RBC % Seg Neutrophils # Seg Neutrophils # Man Lymphocytes # (Manual) Monocytes # (Manual) Eosinophils # (Manual) PT INR Fibrinogen dRVVT Confirm Interp Factor V Activity POC ABG pH POC ABG pCO2 POC ABG pO2 ABG pO2 ABG HCO3 ABG Base Excess ABG Hemoglobin Oxyhemoglobin Sodium Potassium Chloride Carbon Dioxide BUN Creatinine Glucose POC Glucose 160 H 245 H 121 H Lactic Acid Calcium Phosphorus Magnesium Direct Bilirubin AST ALT Alkaline Phosphatase Lactate Dehydrogenase Troponin T C-Reactive Protein Total Protein Albumin Prealbumin Triglycerides Cholesterol LDL Cholesterol Direct HDL Cholesterol Urine pH Urine WBC (Auto) Urine Creatinine Urine Total Protein Fluid Total Protein Vancomycin Trough Rheumatoid Factor Complement C4 Miscellaneous Test Crossmatch 09/20/16 09/20/16 09/20/16 04:10 04:10 04:10 WBC 17.0 H RBC 3.21 L Hgb 8.2 L Hct 25.5 L MCV MCH 26 L MCHC RDW 20.9 H Plt Count Lymph % (Auto) [place] % (Auto) Lymph # [place] # Baso # Seg Neutrophils % Seg Neuts % (Manual) Lymphocytes % (Manual) Monocytes % (Manual) Eosinophils % (Manual) Basophils % (Manual) Nucleated RBC % Seg Neutrophils # Seg Neutrophils # Man Lymphocytes # (Manual) Monocytes # (Manual) Eosinophils # (Manual) PT INR Fibrinogen dRVVT Confirm Interp Factor V Activity POC ABG pH POC ABG pCO2 POC ABG pO2 ABG pO2 ABG HCO3 ABG Base Excess ABG Hemoglobin Oxyhemoglobin Sodium Potassium Chloride 111.0 H Carbon Dioxide 16 L BUN 129 H Creatinine 3.7 H Glucose 115 H POC Glucose Lactic Acid Calcium 8.2 L Phosphorus Magnesium Direct Bilirubin AST ALT Alkaline Phosphatase Lactate Dehydrogenase Troponin T C-Reactive Protein Total Protein Albumin Prealbumin Triglycerides 243 H Cholesterol LDL Cholesterol Direct HDL Cholesterol Urine pH Urine WBC (Auto) Urine Creatinine Urine Total Protein Fluid Total Protein Vancomycin Trough Rheumatoid Factor Complement C4 Miscellaneous Test Crossmatch 09/20/16 09/20/16 09/20/16 05:40 11:52 16:50 WBC RBC Hgb Hct MCV MCH MCHC RDW Plt Count Lymph % (Auto) [place] % (Auto) Lymph # [place] # Baso # Seg Neutrophils % Seg Neuts % (Manual) Lymphocytes % (Manual) Monocytes % (Manual) Eosinophils % (Manual) Basophils % (Manual) Nucleated RBC % Seg Neutrophils # Seg Neutrophils # Man Lymphocytes # (Manual) Monocytes # (Manual) Eosinophils # (Manual) PT INR Fibrinogen dRVVT Confirm Interp Factor V Activity POC ABG pH POC ABG pCO2 POC ABG pO2 ABG pO2 ABG HCO3 ABG Base Excess ABG Hemoglobin Oxyhemoglobin Sodium Potassium Chloride Carbon Dioxide BUN Creatinine Glucose POC Glucose 131 H 183 H 236 H Lactic Acid Calcium Phosphorus Magnesium Direct Bilirubin AST ALT Alkaline Phosphatase Lactate Dehydrogenase Troponin T C-Reactive Protein Total Protein Albumin Prealbumin Triglycerides Cholesterol LDL Cholesterol Direct HDL Cholesterol Urine pH Urine WBC (Auto) Urine Creatinine Urine Total Protein Fluid Total Protein Vancomycin Trough Rheumatoid Factor Complement C4 Miscellaneous Test Crossmatch 09/20/16 09/21/16 09/21/16 23:51 03:30 04:44 WBC RBC Hgb Hct MCV MCH MCHC RDW Plt Count Lymph % (Auto) [place] % (Auto) Lymph # [place] # Baso # Seg Neutrophils % Seg Neuts % (Manual) Lymphocytes % (Manual) Monocytes % (Manual) Eosinophils % (Manual) Basophils % (Manual) Nucleated RBC % Seg Neutrophils # Seg Neutrophils # Man Lymphocytes # (Manual) Monocytes # (Manual) Eosinophils # (Manual) PT INR Fibrinogen dRVVT Confirm Interp Factor V Activity POC ABG pH POC ABG pCO2 POC ABG pO2 ABG pO2 ABG HCO3 ABG Base Excess ABG Hemoglobin Oxyhemoglobin Sodium Potassium Chloride Carbon Dioxide BUN Creatinine Glucose POC Glucose 114 H 141 H Lactic Acid Calcium Phosphorus Magnesium 2.70 H Direct Bilirubin AST ALT Alkaline Phosphatase Lactate Dehydrogenase Troponin T C-Reactive Protein Total Protein Albumin Prealbumin Triglycerides Cholesterol LDL Cholesterol Direct HDL Cholesterol Urine pH Urine WBC (Auto) Urine Creatinine Urine Total Protein Fluid Total Protein Vancomycin Trough Rheumatoid Factor Complement C4 Miscellaneous Test Crossmatch 0809/21/16 09/21/16 07:45 07:45 10:01 WBC 13.8 H RBC 2.94 L Hgb 7.5 L Hct 23.5 L MCV MCH 26 L MCHC RDW 21.2 H Plt Count Lymph % (Auto) 6.9 L [place] % (Auto) 9.4 H Lymph # 0.9 L [place] # 1.3 H Baso # Seg Neutrophils % 83.2 H Seg Neuts % (Manual) Lymphocytes % (Manual) Monocytes % (Manual) Eosinophils % (Manual) Basophils % (Manual) Nucleated RBC % Seg Neutrophils # 11.5 H Seg Neutrophils # Man Lymphocytes # (Manual) Monocytes # (Manual) Eosinophils # (Manual) PT INR Fibrinogen dRVVT Confirm Interp Factor V Activity POC ABG pH 7.308 L POC ABG pCO2 31.9 L POC ABG pO2 148 H ABG pO2 ABG HCO3 ABG Base Excess ABG Hemoglobin Oxyhemoglobin Sodium 147 H Potassium Chloride 114.2 H Carbon Dioxide 15 L BUN 120 H Creatinine 3.9 H Glucose 156 H POC Glucose Lactic Acid Calcium 8.2 L Phosphorus Magnesium Direct Bilirubin AST ALT Alkaline Phosphatase Lactate Dehydrogenase Troponin T C-Reactive Protein Total Protein Albumin Prealbumin Triglycerides Cholesterol LDL Cholesterol Direct HDL Cholesterol Urine pH Urine WBC (Auto) Urine Creatinine Urine Total Protein Fluid Total Protein Vancomycin Trough Rheumatoid Factor Complement C4 Miscellaneous Test Crossmatch 09/21/16 09/21/16 09/21/16 12:00 12:03 13:00 WBC RBC Hgb Hct MCV MCH MCHC RDW Plt Count Lymph % (Auto) [place] % (Auto) Lymph # [place] # Baso # Seg Neutrophils % Seg Neuts % (Manual) Lymphocytes % (Manual) Monocytes % (Manual) Eosinophils % (Manual) Basophils % (Manual) Nucleated RBC % Seg Neutrophils # Seg Neutrophils # Man Lymphocytes # (Manual) Monocytes # (Manual) Eosinophils # (Manual) PT INR Fibrinogen dRVVT Confirm Interp Factor V Activity POC ABG pH POC ABG pCO2 POC ABG pO2 ABG pO2 ABG HCO3 ABG Base Excess ABG Hemoglobin Oxyhemoglobin Sodium Potassium Chloride Carbon Dioxide BUN Creatinine Glucose POC Glucose 163 H Lactic Acid Calcium Phosphorus Magnesium Direct Bilirubin AST ALT Alkaline Phosphatase Lactate Dehydrogenase Troponin T C-Reactive Protein Total Protein Albumin Prealbumin Triglycerides Cholesterol LDL Cholesterol Direct HDL Cholesterol Urine pH Urine WBC (Auto) Urine Creatinine 54.8 H Urine Total Protein Fluid Total Protein Vancomycin Trough 2.3 L Rheumatoid Factor Complement C4 Miscellaneous Test Crossmatch 09/21/16 09/21/16 09/22/16 16:51 23:17 06:27 WBC RBC Hgb Hct MCV MCH MCHC RDW Plt Count Lymph % (Auto) [place] % (Auto) Lymph # [place] # Baso # Seg Neutrophils % Seg Neuts % (Manual) Lymphocytes % (Manual) Monocytes % (Manual) Eosinophils % (Manual) Basophils % (Manual) Nucleated RBC % Seg Neutrophils # Seg Neutrophils # Man Lymphocytes # (Manual) Monocytes # (Manual) Eosinophils # (Manual) PT INR Fibrinogen dRVVT Confirm Interp Factor V Activity POC ABG pH POC ABG pCO2 POC ABG pO2 ABG pO2 ABG HCO3 ABG Base Excess ABG Hemoglobin Oxyhemoglobin Sodium Potassium Chloride Carbon Dioxide BUN Creatinine Glucose POC Glucose 206 H 114 H 115 H Lactic Acid Calcium Phosphorus Magnesium Direct Bilirubin AST ALT Alkaline Phosphatase Lactate Dehydrogenase Troponin T C-Reactive Protein Total Protein Albumin Prealbumin Triglycerides Cholesterol LDL Cholesterol Direct HDL Cholesterol Urine pH Urine WBC (Auto) Urine Creatinine Urine Total Protein Fluid Total Protein Vancomycin Trough Rheumatoid Factor Complement C4 Miscellaneous Test Crossmatch 09/22/16 09/22/16 09/22/16 07:50 07:50 12:00 WBC 17.8 H RBC 3.04 L Hgb 8.0 L Hct 24.7 L MCV MCH 26 L MCHC RDW 21.6 H Plt Count Lymph % (Auto) [place] % (Auto) Lymph # [place] # Baso # Seg Neutrophils % Seg Neuts % (Manual) Lymphocytes % (Manual) Monocytes % (Manual) Eosinophils % (Manual) Basophils % (Manual) Nucleated RBC % Seg Neutrophils # Seg Neutrophils # Man Lymphocytes # (Manual) Monocytes # (Manual) Eosinophils # (Manual) PT INR Fibrinogen dRVVT Confirm Interp Factor V Activity POC ABG pH POC ABG pCO2 POC ABG pO2 ABG pO2 ABG HCO3 ABG Base Excess ABG Hemoglobin Oxyhemoglobin Sodium 150 H Potassium Chloride 118.2 H Carbon Dioxide 14 L BUN 111 H Creatinine 3.7 H Glucose 157 H POC Glucose 183 H Lactic Acid Calcium Phosphorus Magnesium Direct Bilirubin AST ALT Alkaline Phosphatase Lactate Dehydrogenase Troponin T C-Reactive Protein Total Protein Albumin Prealbumin Triglycerides Cholesterol LDL Cholesterol Direct HDL Cholesterol Urine pH Urine WBC (Auto) Urine Creatinine Urine Total Protein Fluid Total Protein Vancomycin Trough Rheumatoid Factor Complement C4 Miscellaneous Test Crossmatch 09/22/16 09/22/16 09/23/16 17:29 23:10 05:00 WBC 19.2 H RBC 3.13 L Hgb 8.0 L Hct 25.2 L MCV MCH 26 L MCHC RDW 22.1 H Plt Count Lymph % (Auto) [place] % (Auto) Lymph # [place] # Baso # Seg Neutrophils % Seg Neuts % (Manual) 92.0 H Lymphocytes % (Manual) 3.0 L Monocytes % (Manual) Eosinophils % (Manual) Basophils % (Manual) Nucleated RBC % Seg Neutrophils # Seg Neutrophils # Man 17.7 H Lymphocytes # (Manual) 0.6 L Monocytes # (Manual) Eosinophils # (Manual) PT INR Fibrinogen dRVVT Confirm Interp Factor V Activity POC ABG pH POC ABG pCO2 POC ABG pO2 ABG pO2 ABG HCO3 ABG Base Excess ABG Hemoglobin Oxyhemoglobin Sodium Potassium Chloride Carbon Dioxide BUN Creatinine Glucose POC Glucose 197 H 169 H Lactic Acid Calcium Phosphorus Magnesium Direct Bilirubin AST ALT Alkaline Phosphatase Lactate Dehydrogenase Troponin T C-Reactive Protein Total Protein Albumin Prealbumin Triglycerides Cholesterol LDL Cholesterol Direct HDL Cholesterol Urine pH Urine WBC (Auto) Urine Creatinine Urine Total Protein Fluid Total Protein Vancomycin Trough Rheumatoid Factor Complement C4 Miscellaneous Test Crossmatch 09/23/16 09/23/16 09/23/16 05:00 05:00 05:10 WBC RBC Hgb Hct MCV MCH MCHC RDW Plt Count Lymph % (Auto) [place] % (Auto) Lymph # [place] # Baso # Seg Neutrophils % Seg Neuts % (Manual) Lymphocytes % (Manual) Monocytes % (Manual) Eosinophils % (Manual) Basophils % (Manual) Nucleated RBC % Seg Neutrophils # Seg Neutrophils # Man Lymphocytes # (Manual) Monocytes # (Manual) Eosinophils # (Manual) PT INR Fibrinogen dRVVT Confirm Interp Factor V Activity POC ABG pH POC ABG pCO2 POC ABG pO2 ABG pO2 ABG HCO3 ABG Base Excess ABG Hemoglobin Oxyhemoglobin Sodium 147 H Potassium 3.2 L Chloride 115.7 H Carbon Dioxide 13 L BUN 111 H Creatinine 3.8 H Glucose 194 H POC Glucose 188 H Lactic Acid Calcium 7.3 L D Phosphorus Magnesium Direct Bilirubin AST ALT Alkaline Phosphatase Lactate Dehydrogenase Troponin T C-Reactive Protein 3.20 H Total Protein Albumin Prealbumin Triglycerides Cholesterol LDL Cholesterol Direct HDL Cholesterol Urine pH Urine WBC (Auto) Urine Creatinine Urine Total Protein Fluid Total Protein Vancomycin Trough Rheumatoid Factor Complement C4 Miscellaneous Test Crossmatch 09/23/16 09/23/16 09/23/16 11:37 12:29 18:01 WBC RBC Hgb Hct MCV MCH MCHC RDW Plt Count Lymph % (Auto) [place] % (Auto) Lymph # [place] # Baso # Seg Neutrophils % Seg Neuts % (Manual) Lymphocytes % (Manual) Monocytes % (Manual) Eosinophils % (Manual) Basophils % (Manual) Nucleated RBC % Seg Neutrophils # Seg Neutrophils # Man Lymphocytes # (Manual) Monocytes # (Manual) Eosinophils # (Manual) PT INR Fibrinogen dRVVT Confirm Interp Factor V Activity POC ABG pH POC ABG pCO2 18.9 L POC ABG pO2 143 H ABG pO2 ABG HCO3 ABG Base Excess ABG Hemoglobin Oxyhemoglobin Sodium Potassium Chloride Carbon Dioxide BUN Creatinine Glucose POC Glucose 153 H 108 H Lactic Acid Calcium Phosphorus Magnesium Direct Bilirubin AST ALT Alkaline Phosphatase Lactate Dehydrogenase Troponin T C-Reactive Protein Total Protein Albumin Prealbumin Triglycerides Cholesterol LDL Cholesterol Direct HDL Cholesterol Urine pH Urine WBC (Auto) Urine Creatinine Urine Total Protein Fluid Total Protein Vancomycin Trough Rheumatoid Factor Complement C4 Miscellaneous Test Crossmatch 09/23/16 09/23/16 09/24/16 21:19 23:43 05:16 WBC RBC Hgb Hct MCV MCH MCHC RDW Plt Count Lymph % (Auto) [place] % (Auto) Lymph # [place] # [place] # Seg Neutrophils % Seg Neuts % (Manual) Lymphocytes % (Manual) Monocytes % (Manual) Eosinophils % (Manual) Basophils % (Manual) Nucleated RBC % Seg Neutrophils # Seg Neutrophils # Man Lymphocytes # (Manual) Monocytes # (Manual) Eosinophils # (Manual) PT INR Fibrinogen dRVVT Confirm Interp Factor V Activity POC ABG pH POC ABG pCO2 17.3 L POC ABG pO2 112 H ABG pO2 ABG HCO3 ABG Base Excess ABG Hemoglobin Oxyhemoglobin Sodium Potassium Chloride Carbon Dioxide BUN Creatinine Glucose POC Glucose 143 H 164 H Lactic Acid Calcium Phosphorus Magnesium Direct Bilirubin AST ALT Alkaline Phosphatase Lactate Dehydrogenase Troponin T C-Reactive Protein Total Protein Albumin Prealbumin Triglycerides Cholesterol LDL Cholesterol Direct HDL Cholesterol Urine pH Urine WBC (Auto) Urine Creatinine Urine Total Protein Fluid Total Protein Vancomycin Trough Rheumatoid Factor Complement C4 Miscellaneous Test Crossmatch 09/24/16 09/24/16 09/24/16 05:21 11:58 17:06 WBC RBC Hgb Hct MCV MCH MCHC RDW Plt Count Lymph % (Auto) [place] % (Auto) Lymph # [place] # Baso # Seg Neutrophils % Seg Neuts % (Manual) Lymphocytes % (Manual) Monocytes % (Manual) Eosinophils % (Manual) Basophils % (Manual) Nucleated RBC % Seg Neutrophils # Seg Neutrophils # Man Lymphocytes # (Manual) Monocytes # (Manual) Eosinophils # (Manual) PT INR Fibrinogen dRVVT Confirm Interp Factor V Activity POC ABG pH POC ABG pCO2 POC ABG pO2 ABG pO2 ABG HCO3 ABG Base Excess ABG Hemoglobin Oxyhemoglobin Sodium Potassium Chloride Carbon Dioxide 10 L BUN 103 H Creatinine 4.3 H Glucose 163 H POC Glucose 173 H 167 H Lactic Acid Calcium 6.5 L Phosphorus Magnesium Direct Bilirubin AST ALT Alkaline Phosphatase Lactate Dehydrogenase Troponin T C-Reactive Protein Total Protein Albumin Prealbumin Triglycerides Cholesterol LDL Cholesterol Direct HDL Cholesterol Urine pH Urine WBC (Auto) Urine Creatinine Urine Total Protein Fluid Total Protein Vancomycin Trough Rheumatoid Factor Complement C4 Miscellaneous Test Crossmatch 09/24/16 09/24/16 09/24/16 20:15 21:02 23:48 WBC RBC Hgb Hct MCV MCH MCHC RDW Plt Count Lymph % (Auto) [place] % (Auto) Lymph # [place] # Baso # Seg Neutrophils % Seg Neuts % (Manual) Lymphocytes % (Manual) Monocytes % (Manual) Eosinophils % (Manual) Basophils % (Manual) Nucleated RBC % Seg Neutrophils # Seg Neutrophils # Man Lymphocytes # (Manual) Monocytes # (Manual) Eosinophils # (Manual) PT INR Fibrinogen dRVVT Confirm Interp Factor V Activity POC ABG pH 7.288 L POC ABG pCO2 30.2 L 21.5 L POC ABG pO2 32 L 39 L ABG pO2 ABG HCO3 ABG Base Excess ABG Hemoglobin Oxyhemoglobin Sodium Potassium Chloride Carbon Dioxide BUN Creatinine Glucose POC Glucose 109 H Lactic Acid Calcium Phosphorus Magnesium Direct Bilirubin AST ALT Alkaline Phosphatase Lactate Dehydrogenase Troponin T C-Reactive Protein Total Protein Albumin Prealbumin Triglycerides Cholesterol LDL Cholesterol Direct HDL Cholesterol Urine pH Urine WBC (Auto) Urine Creatinine Urine Total Protein Fluid Total Protein Vancomycin Trough Rheumatoid Factor Complement C4 Miscellaneous Test Crossmatch 09/25/16 09/25/16 09/25/16 04:20 04:20 04:20 WBC RBC 2.58 L Hgb 7.0 L Hct 21.0 L MCV MCH 27 L MCHC RDW 23.8 H Plt Count Lymph % (Auto) [place] % (Auto) Lymph # [place] # Baso # Seg Neutrophils % Seg Neuts % (Manual) Lymphocytes % (Manual) 12.0 L Monocytes % (Manual) Eosinophils % (Manual) 7.0 H Basophils % (Manual) 2.0 H Nucleated RBC % Seg Neutrophils # Seg Neutrophils # Man Lymphocytes # (Manual) 0.9 L Monocytes # (Manual) Eosinophils # (Manual) 0.5 H PT INR Fibrinogen dRVVT Confirm Interp Factor V Activity POC ABG pH POC ABG pCO2 POC ABG pO2 ABG pO2 ABG HCO3 ABG Base Excess ABG Hemoglobin Oxyhemoglobin Sodium Potassium Chloride Carbon Dioxide 15 L BUN 72 H Creatinine 3.8 H Glucose POC Glucose Lactic Acid Calcium 6.0 L Phosphorus 4.60 H Magnesium 1.60 L Direct Bilirubin AST ALT Alkaline Phosphatase Lactate Dehydrogenase Troponin T C-Reactive Protein Total Protein Albumin Prealbumin Triglycerides Cholesterol LDL Cholesterol Direct HDL Cholesterol Urine pH Urine WBC (Auto) Urine Creatinine Urine Total Protein Fluid Total Protein Vancomycin Trough Rheumatoid Factor Complement C4 Miscellaneous Test Crossmatch 09/25/16 09/25/16 09/25/16 04:57 08:02 10:30 WBC RBC Hgb Hct MCV MCH MCHC RDW Plt Count Lymph % (Auto) [place] % (Auto) Lymph # [place] # Baso # Seg Neutrophils % Seg Neuts % (Manual) Lymphocytes % (Manual) Monocytes % (Manual) Eosinophils % (Manual) Basophils % (Manual) Nucleated RBC % Seg Neutrophils # Seg Neutrophils # Man Lymphocytes # (Manual) Monocytes # (Manual) Eosinophils # (Manual) PT INR Fibrinogen dRVVT Confirm Interp Factor V Activity POC ABG pH POC ABG pCO2 24.7 L POC ABG pO2 152 H ABG pO2 ABG HCO3 ABG Base Excess ABG Hemoglobin Oxyhemoglobin Sodium Potassium Chloride Carbon Dioxide BUN Creatinine Glucose POC Glucose 113 H Lactic Acid Calcium Phosphorus Magnesium Direct Bilirubin AST ALT Alkaline Phosphatase Lactate Dehydrogenase Troponin T C-Reactive Protein Total Protein Albumin Prealbumin Triglycerides Cholesterol LDL Cholesterol Direct HDL Cholesterol Urine pH Urine WBC (Auto) Urine Creatinine Urine Total Protein Fluid Total Protein Vancomycin Trough Rheumatoid Factor Complement C4 Miscellaneous Test Crossmatch See Detail 09/25/16 09/25/16 09/25/16 12:05 17:44 23:47 WBC RBC Hgb Hct MCV MCH MCHC RDW Plt Count Lymph % (Auto) [place] % (Auto) Lymph # [place] # Baso # Seg Neutrophils % Seg Neuts % (Manual) Lymphocytes % (Manual) Monocytes % (Manual) Eosinophils % (Manual) Basophils % (Manual) Nucleated RBC % Seg Neutrophils # Seg Neutrophils # Man Lymphocytes # (Manual) Monocytes # (Manual) Eosinophils # (Manual) PT INR Fibrinogen dRVVT Confirm Interp Factor V Activity POC ABG pH POC ABG pCO2 POC ABG pO2 ABG pO2 ABG HCO3 ABG Base Excess ABG Hemoglobin Oxyhemoglobin Sodium Potassium Chloride Carbon Dioxide BUN Creatinine Glucose POC Glucose 117 H 119 H 150 H Lactic Acid Calcium Phosphorus Magnesium Direct Bilirubin AST ALT Alkaline Phosphatase Lactate Dehydrogenase Troponin T C-Reactive Protein Total Protein Albumin Prealbumin Triglycerides Cholesterol LDL Cholesterol Direct HDL Cholesterol Urine pH Urine WBC (Auto) Urine Creatinine Urine Total Protein Fluid Total Protein Vancomycin Trough Rheumatoid Factor Complement C4 Miscellaneous Test Crossmatch 09/26/16 09/26/16 09/26/16 04:25 04:25 04:25 WBC RBC 2.65 L Hgb 7.4 L Hct 21.6 L MCV MCH MCHC RDW 22.5 H Plt Count Lymph % (Auto) [place] % (Auto) Lymph # [place] # Baso # Seg Neutrophils % Seg Neuts % (Manual) Lymphocytes % (Manual) 6.0 L Monocytes % (Manual) Eosinophils % (Manual) 11.0 H Basophils % (Manual) Nucleated RBC % Seg Neutrophils # Seg Neutrophils # Man Lymphocytes # (Manual) 0.4 L Monocytes # (Manual) Eosinophils # (Manual) 0.6 H PT INR Fibrinogen dRVVT Confirm Interp Factor V Activity POC ABG pH POC ABG pCO2 POC ABG pO2 ABG pO2 ABG HCO3 ABG Base Excess ABG Hemoglobin Oxyhemoglobin Sodium Potassium Chloride 97.0 L Carbon Dioxide 19 L BUN 43 H Creatinine 2.6 H Glucose 130 H POC Glucose Lactic Acid 4.40 H* Calcium 6.7 L Phosphorus Magnesium Direct Bilirubin AST ALT Alkaline Phosphatase Lactate Dehydrogenase Troponin T C-Reactive Protein Total Protein Albumin Prealbumin Triglycerides Cholesterol LDL Cholesterol Direct HDL Cholesterol Urine pH Urine WBC (Auto) Urine Creatinine Urine Total Protein Fluid Total Protein Vancomycin Trough Rheumatoid Factor Complement C4 Miscellaneous Test Crossmatch 09/26/16 09/26/16 09/26/16 05:20 11:44 12:12 WBC RBC Hgb Hct MCV MCH MCHC RDW Plt Count Lymph % (Auto) [place] % (Auto) Lymph # [place] # Baso # Seg Neutrophils % Seg Neuts % (Manual) Lymphocytes % (Manual) Monocytes % (Manual) Eosinophils % (Manual) Basophils % (Manual) Nucleated RBC % Seg Neutrophils # Seg Neutrophils # Man Lymphocytes # (Manual) Monocytes # (Manual) Eosinophils # (Manual) PT INR Fibrinogen dRVVT Confirm Interp Factor V Activity POC ABG pH POC ABG pCO2 27.0 L POC ABG pO2 69 L ABG pO2 ABG HCO3 ABG Base Excess ABG Hemoglobin Oxyhemoglobin Sodium Potassium Chloride Carbon Dioxide BUN Creatinine Glucose POC Glucose 121 H 128 H Lactic Acid Calcium Phosphorus Magnesium Direct Bilirubin AST ALT Alkaline Phosphatase Lactate Dehydrogenase Troponin T C-Reactive Protein Total Protein Albumin Prealbumin Triglycerides Cholesterol LDL Cholesterol Direct HDL Cholesterol Urine pH Urine WBC (Auto) Urine Creatinine Urine Total Protein Fluid Total Protein Vancomycin Trough Rheumatoid Factor Complement C4 Miscellaneous Test Crossmatch 09/26/16 09/26/16 09/27/16 18:31 23:40 08:20 WBC RBC Hgb Hct MCV MCH MCHC RDW Plt Count Lymph % (Auto) [place] % (Auto) Lymph # [place] # Baso # Seg Neutrophils % Seg Neuts % (Manual) Lymphocytes % (Manual) Monocytes % (Manual) Eosinophils % (Manual) Basophils % (Manual) Nucleated RBC % Seg Neutrophils # Seg Neutrophils # Man Lymphocytes # (Manual) Monocytes # (Manual) Eosinophils # (Manual) PT INR Fibrinogen dRVVT Confirm Interp Factor V Activity POC ABG pH POC ABG pCO2 POC ABG pO2 ABG pO2 ABG HCO3 ABG Base Excess ABG Hemoglobin Oxyhemoglobin Sodium Potassium Chloride Carbon Dioxide BUN Creatinine Glucose POC Glucose 120 H 133 H Lactic Acid 4.10 H* Calcium Phosphorus Magnesium Direct Bilirubin AST ALT Alkaline Phosphatase Lactate Dehydrogenase Troponin T C-Reactive Protein Total Protein Albumin Prealbumin Triglycerides Cholesterol LDL Cholesterol Direct HDL Cholesterol Urine pH Urine WBC (Auto) Urine Creatinine Urine Total Protein Fluid Total Protein Vancomycin Trough Rheumatoid Factor Complement C4 Miscellaneous Test Crossmatch 09/27/16 09/27/16 09/27/16 11:23 15:00 18:15 WBC RBC Hgb Hct MCV MCH MCHC RDW Plt Count Lymph % (Auto) [place] % (Auto) Lymph # [place] # Baso # Seg Neutrophils % Seg Neuts % (Manual) Lymphocytes % (Manual) Monocytes % (Manual) Eosinophils % (Manual) Basophils % (Manual) Nucleated RBC % Seg Neutrophils # Seg Neutrophils # Man Lymphocytes # (Manual) Monocytes # (Manual) Eosinophils # (Manual) PT INR Fibrinogen dRVVT Confirm Interp Factor V Activity POC ABG pH 7.459 H POC ABG pCO2 27.1 L POC ABG pO2 140 H ABG pO2 ABG HCO3 ABG Base Excess ABG Hemoglobin Oxyhemoglobin Sodium Potassium Chloride Carbon Dioxide BUN Creatinine Glucose POC Glucose 114 H 127 H Lactic Acid Calcium Phosphorus Magnesium Direct Bilirubin AST ALT Alkaline Phosphatase Lactate Dehydrogenase Troponin T C-Reactive Protein Total Protein Albumin Prealbumin Triglycerides Cholesterol LDL Cholesterol Direct HDL Cholesterol Urine pH Urine WBC (Auto) Urine Creatinine Urine Total Protein Fluid Total Protein Vancomycin Trough Rheumatoid Factor Complement C4 Miscellaneous Test Crossmatch 09/27/16 09/27/16 09/28/16 Unknown Unknown 03:45 WBC RBC 2.49 L Hgb 6.8 L Hct 20.7 L MCV MCH 27 L MCHC RDW 22.1 H Plt Count Lymph % (Auto) [place] % (Auto) Lymph # [place] # Baso # Seg Neutrophils % Seg Neuts % (Manual) 32.0 L Lymphocytes % (Manual) 12.0 L Monocytes % (Manual) 11.0 H Eosinophils % (Manual) 10.0 H Basophils % (Manual) Nucleated RBC % Seg Neutrophils # Seg Neutrophils # Man Lymphocytes # (Manual) 1.0 L Monocytes # (Manual) 0.9 H Eosinophils # (Manual) 0.8 H PT INR Fibrinogen dRVVT Confirm Interp Factor V Activity POC ABG pH POC ABG pCO2 POC ABG pO2 ABG pO2 ABG HCO3 ABG Base Excess ABG Hemoglobin Oxyhemoglobin Sodium 135 L 135 L Potassium 3.5 L Chloride 93.6 L 94.4 L Carbon Dioxide 17 L 21 L BUN 45 H 28 H Creatinine 3.3 H 2.5 H Glucose 106 H POC Glucose Lactic Acid Calcium 7.3 L 7.1 L Phosphorus Magnesium Direct Bilirubin AST ALT Alkaline Phosphatase Lactate Dehydrogenase Troponin T C-Reactive Protein Total Protein Albumin Prealbumin Triglycerides Cholesterol LDL Cholesterol Direct HDL Cholesterol Urine pH Urine WBC (Auto) Urine Creatinine Urine Total Protein Fluid Total Protein Vancomycin Trough Rheumatoid Factor Complement C4 Miscellaneous Test Crossmatch 09/28/16 09/28/16 09/28/16 03:45 07:25 11:58 WBC 13.3 H RBC 3.01 L Hgb 8.4 L Hct 25.0 L MCV MCH MCHC RDW 20.5 H Plt Count 128 L Lymph % (Auto) [place] % (Auto) Lymph # [place] # Baso # Seg Neutrophils % Seg Neuts % (Manual) Lymphocytes % (Manual) 7.0 L Monocytes % (Manual) Eosinophils % (Manual) 6.0 H Basophils % (Manual) Nucleated RBC % Seg Neutrophils # Seg Neutrophils # Man Lymphocytes # (Manual) 0.9 L Monocytes # (Manual) Eosinophils # (Manual) 0.8 H PT INR Fibrinogen dRVVT Confirm Interp Factor V Activity POC ABG pH POC ABG pCO2 POC ABG pO2 ABG pO2 ABG HCO3 ABG Base Excess ABG Hemoglobin Oxyhemoglobin Sodium Potassium Chloride Carbon Dioxide BUN Creatinine Glucose POC Glucose 121 H Lactic Acid 4.50 H* Calcium Phosphorus Magnesium Direct Bilirubin AST ALT Alkaline Phosphatase Lactate Dehydrogenase Troponin T C-Reactive Protein Total Protein Albumin Prealbumin Triglycerides Cholesterol LDL Cholesterol Direct HDL Cholesterol Urine pH Urine WBC (Auto) Urine Creatinine Urine Total Protein Fluid Total Protein Vancomycin Trough Rheumatoid Factor Complement C4 Miscellaneous Test Crossmatch 09/29/16 09/29/16 09/29/16 06:45 06:45 06:45 WBC 14.9 H RBC 2.74 L Hgb 7.6 L Hct 23.2 L MCV MCH MCHC RDW 20.5 H Plt Count 81 L Lymph % (Auto) [place] % (Auto) Lymph # [place] # Baso # Seg Neutrophils % Seg Neuts % (Manual) 81.0 H Lymphocytes % (Manual) 4.0 L Monocytes % (Manual) Eosinophils % (Manual) Basophils % (Manual) Nucleated RBC % Seg Neutrophils # Seg Neutrophils # Man 12.1 H Lymphocytes # (Manual) 0.6 L Monocytes # (Manual) Eosinophils # (Manual) PT INR Fibrinogen dRVVT Confirm Interp Factor V Activity POC ABG pH POC ABG pCO2 POC ABG pO2 ABG pO2 ABG HCO3 ABG Base Excess ABG Hemoglobin Oxyhemoglobin Sodium 133 L Potassium 3.4 L Chloride 92.5 L Carbon Dioxide 21 L BUN 33 H Creatinine 3.0 H Glucose POC Glucose Lactic Acid Calcium 6.6 L Phosphorus Magnesium 1.40 L Direct Bilirubin 0.9 H AST ALT Alkaline Phosphatase Lactate Dehydrogenase Troponin T C-Reactive Protein Total Protein 4.3 L Albumin 1.3 L Prealbumin Triglycerides Cholesterol LDL Cholesterol Direct HDL Cholesterol Urine pH Urine WBC (Auto) Urine Creatinine Urine Total Protein Fluid Total Protein Vancomycin Trough Rheumatoid Factor Complement C4 Miscellaneous Test Crossmatch 09/29/16 09/29/16 09/30/16 17:52 20:12 00:07 WBC RBC Hgb Hct MCV MCH MCHC RDW Plt Count Lymph % (Auto) [place] % (Auto) Lymph # [place] # Baso # Seg Neutrophils % Seg Neuts % (Manual) Lymphocytes % (Manual) Monocytes % (Manual) Eosinophils % (Manual) Basophils % (Manual) Nucleated RBC % Seg Neutrophils # Seg Neutrophils # Man Lymphocytes # (Manual) Monocytes # (Manual) Eosinophils # (Manual) PT INR Fibrinogen dRVVT Confirm Interp Factor V Activity POC ABG pH POC ABG pCO2 POC ABG pO2 ABG pO2 ABG HCO3 ABG Base Excess ABG Hemoglobin Oxyhemoglobin Sodium Potassium Chloride Carbon Dioxide BUN Creatinine Glucose POC Glucose 50 L 51 L Lactic Acid Calcium Phosphorus Magnesium Direct Bilirubin AST ALT Alkaline Phosphatase Lactate Dehydrogenase Troponin T 0.204 H* C-Reactive Protein Total Protein Albumin Prealbumin Triglycerides Cholesterol 31 L LDL Cholesterol Direct 4 L HDL Cholesterol 3 L Urine pH Urine WBC (Auto) Urine Creatinine Urine Total Protein Fluid Total Protein Vancomycin Trough Rheumatoid Factor Complement C4 Miscellaneous Test Crossmatch 09/30/16 09/30/16 09/30/16 01:30 05:15 06:10 WBC RBC Hgb Hct MCV MCH MCHC RDW Plt Count Lymph % (Auto) [place] % (Auto) Lymph # [place] # Baso # Seg Neutrophils % Seg Neuts % (Manual) Lymphocytes % (Manual) Monocytes % (Manual) Eosinophils % (Manual) Basophils % (Manual) Nucleated RBC % Seg Neutrophils # Seg Neutrophils # Man Lymphocytes # (Manual) Monocytes # (Manual) Eosinophils # (Manual) PT INR Fibrinogen dRVVT Confirm Interp Factor V Activity POC ABG pH POC ABG pCO2 POC ABG pO2 ABG pO2 ABG HCO3 ABG Base Excess ABG Hemoglobin Oxyhemoglobin Sodium 133 L Potassium 3.2 L Chloride 93.2 L Carbon Dioxide 19 L BUN 36 H Creatinine 3.2 H Glucose 104 H POC Glucose 167 H 146 H Lactic Acid Calcium 6.4 L Phosphorus Magnesium 1.60 L Direct Bilirubin AST ALT Alkaline Phosphatase Lactate Dehydrogenase Troponin T C-Reactive Protein Total Protein Albumin Prealbumin Triglycerides Cholesterol LDL Cholesterol Direct HDL Cholesterol Urine pH Urine WBC (Auto) Urine Creatinine Urine Total Protein Fluid Total Protein Vancomycin Trough Rheumatoid Factor Complement C4 Miscellaneous Test Crossmatch 09/30/16 09/30/16 09/30/16 11:26 13:39 18:38 WBC RBC Hgb Hct MCV MCH MCHC RDW Plt Count Lymph % (Auto) [place] % (Auto) Lymph # [place] # Baso # Seg Neutrophils % Seg Neuts % (Manual) Lymphocytes % (Manual) Monocytes % (Manual) Eosinophils % (Manual) Basophils % (Manual) Nucleated RBC % Seg Neutrophils # Seg Neutrophils # Man Lymphocytes # (Manual) Monocytes # (Manual) Eosinophils # (Manual) PT INR Fibrinogen dRVVT Confirm Interp Factor V Activity POC ABG pH 7.479 H POC ABG pCO2 29.8 L POC ABG pO2 117 H ABG pO2 ABG HCO3 ABG Base Excess ABG Hemoglobin Oxyhemoglobin Sodium Potassium Chloride Carbon Dioxide BUN Creatinine Glucose POC Glucose 140 H 122 H Lactic Acid Calcium Phosphorus Magnesium Direct Bilirubin AST ALT Alkaline Phosphatase Lactate Dehydrogenase Troponin T C-Reactive Protein Total Protein Albumin Prealbumin Triglycerides Cholesterol LDL Cholesterol Direct HDL Cholesterol Urine pH Urine WBC (Auto) Urine Creatinine Urine Total Protein Fluid Total Protein Vancomycin Trough Rheumatoid Factor Complement C4 Miscellaneous Test Crossmatch 10/01/16 10/01/16 10/01/16 06:00 06:00 12:37 WBC 12.6 H RBC 2.75 L Hgb 7.3 L Hct 23.3 L MCV MCH 27 L MCHC RDW 20.6 H Plt Count 72 L Lymph % (Auto) [place] % (Auto) Lymph # [place] # Baso # Seg Neutrophils % Seg Neuts % (Manual) 31.0 L Lymphocytes % (Manual) 8.0 L Monocytes % (Manual) Eosinophils % (Manual) Basophils % (Manual) Nucleated RBC % 3.0 H Seg Neutrophils # Seg Neutrophils # Man Lymphocytes # (Manual) 1.0 L Monocytes # (Manual) Eosinophils # (Manual) PT INR Fibrinogen dRVVT Confirm Interp Factor V Activity POC ABG pH POC ABG pCO2 POC ABG pO2 ABG pO2 ABG HCO3 ABG Base Excess ABG Hemoglobin Oxyhemoglobin Sodium 127 L Potassium Chloride 86.8 L Carbon Dioxide 20 L BUN 42 H Creatinine 3.5 H Glucose POC Glucose 65 L Lactic Acid Calcium 7.0 L Phosphorus Magnesium Direct Bilirubin AST ALT Alkaline Phosphatase Lactate Dehydrogenase Troponin T C-Reactive Protein Total Protein Albumin Prealbumin Triglycerides Cholesterol LDL Cholesterol Direct HDL Cholesterol Urine pH Urine WBC (Auto) Urine Creatinine Urine Total Protein Fluid Total Protein Vancomycin Trough Rheumatoid Factor Complement C4 Miscellaneous Test Crossmatch 10/01/16 10/01/16 10/02/16 17:39 23:32 00:59 WBC RBC Hgb Hct MCV MCH MCHC RDW Plt Count Lymph % (Auto) [place] % (Auto) Lymph # [place] # Baso # Seg Neutrophils % Seg Neuts % (Manual) Lymphocytes % (Manual) Monocytes % (Manual) Eosinophils % (Manual) Basophils % (Manual) Nucleated RBC % Seg Neutrophils # Seg Neutrophils # Man Lymphocytes # (Manual) Monocytes # (Manual) Eosinophils # (Manual) PT INR Fibrinogen dRVVT Confirm Interp Factor V Activity POC ABG pH POC ABG pCO2 POC ABG pO2 ABG pO2 ABG HCO3 ABG Base Excess ABG Hemoglobin Oxyhemoglobin Sodium Potassium Chloride Carbon Dioxide BUN Creatinine Glucose POC Glucose 107 H 52 L 145 H Lactic Acid Calcium Phosphorus Magnesium Direct Bilirubin AST ALT Alkaline Phosphatase Lactate Dehydrogenase Troponin T C-Reactive Protein Total Protein Albumin Prealbumin Triglycerides Cholesterol LDL Cholesterol Direct HDL Cholesterol Urine pH Urine WBC (Auto) Urine Creatinine Urine Total Protein Fluid Total Protein Vancomycin Trough Rheumatoid Factor Complement C4 Miscellaneous Test Crossmatch 10/02/16 10/02/16 10/02/16 10:30 10:50 10:50 WBC 14.7 H RBC 2.76 L Hgb 7.4 L Hct 23.6 L MCV MCH 27 L MCHC RDW 20.2 H Plt Count 79 L Lymph % (Auto) [place] % (Auto) Lymph # [place] # Baso # Seg Neutrophils % Seg Neuts % (Manual) 86.0 H Lymphocytes % (Manual) 6.0 L Monocytes % (Manual) Eosinophils % (Manual) Basophils % (Manual) Nucleated RBC % Seg Neutrophils # Seg Neutrophils # Man 12.6 H Lymphocytes # (Manual) 0.9 L Monocytes # (Manual) Eosinophils # (Manual) PT INR Fibrinogen dRVVT Confirm Interp Factor V Activity POC ABG pH 7.486 H POC ABG pCO2 30.1 L POC ABG pO2 108 H ABG pO2 ABG HCO3 ABG Base Excess ABG Hemoglobin Oxyhemoglobin Sodium 131 L Potassium 3.4 L Chloride 89.9 L Carbon Dioxide BUN 26 H Creatinine 2.6 H Glucose POC Glucose Lactic Acid Calcium 7.0 L Phosphorus Magnesium Direct Bilirubin AST ALT Alkaline Phosphatase Lactate Dehydrogenase Troponin T C-Reactive Protein Total Protein Albumin Prealbumin Triglycerides Cholesterol LDL Cholesterol Direct HDL Cholesterol Urine pH Urine WBC (Auto) Urine Creatinine Urine Total Protein Fluid Total Protein Vancomycin Trough Rheumatoid Factor Complement C4 Miscellaneous Test Crossmatch 10/02/16 10/03/16 10/03/16 23:45 00:45 05:10 WBC 12.9 H RBC 2.77 L Hgb 7.6 L Hct 23.7 L MCV MCH 27 L MCHC RDW 19.7 H Plt Count 89 L Lymph % (Auto) [place] % (Auto) Lymph # [place] # Baso # Seg Neutrophils % Seg Neuts % (Manual) Lymphocytes % (Manual) 8.0 L Monocytes % (Manual) Eosinophils % (Manual) Basophils % (Manual) Nucleated RBC % Seg Neutrophils # 11.9 H Seg Neutrophils # Man Lymphocytes # (Manual) 1.0 L Monocytes # (Manual) Eosinophils # (Manual) PT INR Fibrinogen dRVVT Confirm Interp Factor V Activity POC ABG pH POC ABG pCO2 POC ABG pO2 ABG pO2 ABG HCO3 ABG Base Excess ABG Hemoglobin Oxyhemoglobin Sodium Potassium Chloride Carbon Dioxide BUN Creatinine Glucose POC Glucose 55 L 199 H Lactic Acid Calcium Phosphorus Magnesium Direct Bilirubin AST ALT Alkaline Phosphatase Lactate Dehydrogenase Troponin T C-Reactive Protein Total Protein Albumin Prealbumin Triglycerides Cholesterol LDL Cholesterol Direct HDL Cholesterol Urine pH Urine WBC (Auto) Urine Creatinine Urine Total Protein Fluid Total Protein Vancomycin Trough Rheumatoid Factor Complement C4 Miscellaneous Test Crossmatch 10/03/16 10/03/16 10/03/16 05:10 12:14 13:18 WBC RBC Hgb Hct MCV MCH MCHC RDW Plt Count Lymph % (Auto) [place] % (Auto) Lymph # [place] # Baso # Seg Neutrophils % Seg Neuts % (Manual) Lymphocytes % (Manual) Monocytes % (Manual) Eosinophils % (Manual) Basophils % (Manual) Nucleated RBC % Seg Neutrophils # Seg Neutrophils # Man Lymphocytes # (Manual) Monocytes # (Manual) Eosinophils # (Manual) PT INR Fibrinogen dRVVT Confirm Interp Factor V Activity POC ABG pH POC ABG pCO2 POC ABG pO2 ABG pO2 ABG HCO3 ABG Base Excess ABG Hemoglobin Oxyhemoglobin Sodium 129 L Potassium 3.3 L Chloride 88.8 L Carbon Dioxide 20 L BUN 29 H Creatinine 2.8 H Glucose POC Glucose 68 L 127 H Lactic Acid Calcium 7.2 L Phosphorus Magnesium Direct Bilirubin AST ALT Alkaline Phosphatase Lactate Dehydrogenase Troponin T C-Reactive Protein Total Protein Albumin Prealbumin Triglycerides Cholesterol LDL Cholesterol Direct HDL Cholesterol Urine pH Urine WBC (Auto) Urine Creatinine Urine Total Protein Fluid Total Protein Vancomycin Trough Rheumatoid Factor Complement C4 Miscellaneous Test Crossmatch 10/03/16 10/03/1617 14:42 18:21 19:09 WBC RBC Hgb Hct MCV MCH MCHC RDW Plt Count Lymph % (Auto) [place] % (Auto) Lymph # [place] # Baso # Seg Neutrophils % Seg Neuts % (Manual) Lymphocytes % (Manual) Monocytes % (Manual) Eosinophils % (Manual) Basophils % (Manual) Nucleated RBC % Seg Neutrophils # Seg Neutrophils # Man Lymphocytes # (Manual) Monocytes # (Manual) Eosinophils # (Manual) PT INR Fibrinogen dRVVT Confirm Interp Factor V Activity POC ABG pH 7.499 H POC ABG pCO2 28.4 L POC ABG pO2 44 L ABG pO2 ABG HCO3 ABG Base Excess ABG Hemoglobin Oxyhemoglobin Sodium Potassium Chloride Carbon Dioxide BUN Creatinine Glucose POC Glucose 64 L 205 H Lactic Acid Calcium Phosphorus Magnesium Direct Bilirubin AST ALT Alkaline Phosphatase Lactate Dehydrogenase Troponin T C-Reactive Protein Total Protein Albumin Prealbumin Triglycerides Cholesterol LDL Cholesterol Direct HDL Cholesterol Urine pH Urine WBC (Auto) Urine Creatinine Urine Total Protein Fluid Total Protein Vancomycin Trough Rheumatoid Factor Complement C4 Miscellaneous Test Crossmatch 10/03/16 10/04/16 10/04/16 23:33 04:18 06:30 WBC RBC 2.54 L Hgb 7.1 L Hct 21.7 L MCV MCH MCHC RDW 19.5 H Plt Count 76 L Lymph % (Auto) [place] % (Auto) Lymph # [place] # Baso # Seg Neutrophils % Seg Neuts % (Manual) 88.0 H Lymphocytes % (Manual) 6.0 L Monocytes % (Manual) Eosinophils % (Manual) Basophils % (Manual) Nucleated RBC % Seg Neutrophils # Seg Neutrophils # Man 8.8 H Lymphocytes # (Manual) 0.6 L Monocytes # (Manual) Eosinophils # (Manual) PT INR Fibrinogen dRVVT Confirm Interp Factor V Activity POC ABG pH 7.461 H POC ABG pCO2 33.6 L POC ABG pO2 211 H ABG pO2 ABG HCO3 ABG Base Excess ABG Hemoglobin Oxyhemoglobin Sodium Potassium Chloride Carbon Dioxide BUN Creatinine Glucose POC Glucose 136 H Lactic Acid Calcium Phosphorus Magnesium Direct Bilirubin AST ALT Alkaline Phosphatase Lactate Dehydrogenase Troponin T C-Reactive Protein Total Protein Albumin Prealbumin Triglycerides Cholesterol LDL Cholesterol Direct HDL Cholesterol Urine pH Urine WBC (Auto) Urine Creatinine Urine Total Protein Fluid Total Protein Vancomycin Trough Rheumatoid Factor Complement C4 Miscellaneous Test Crossmatch 10/04/16 10/04/16 10/04/16 06:30 11:45 17:54 WBC RBC Hgb Hct MCV MCH MCHC RDW Plt Count Lymph % (Auto) [place] % (Auto) Lymph # [place] # Baso # Seg Neutrophils % Seg Neuts % (Manual) Lymphocytes % (Manual) Monocytes % (Manual) Eosinophils % (Manual) Basophils % (Manual) Nucleated RBC % Seg Neutrophils # Seg Neutrophils # Man Lymphocytes # (Manual) Monocytes # (Manual) Eosinophils # (Manual) PT INR Fibrinogen dRVVT Confirm Interp Factor V Activity POC ABG pH POC ABG pCO2 POC ABG pO2 ABG pO2 ABG HCO3 ABG Base Excess ABG Hemoglobin Oxyhemoglobin Sodium 128 L Potassium Chloride 87.4 L Carbon Dioxide 20 L BUN 34 H Creatinine 2.9 H Glucose 127 H POC Glucose 158 H 160 H Lactic Acid Calcium 7.4 L Phosphorus Magnesium Direct Bilirubin AST ALT Alkaline Phosphatase Lactate Dehydrogenase Troponin T C-Reactive Protein Total Protein Albumin Prealbumin Triglycerides Cholesterol LDL Cholesterol Direct HDL Cholesterol Urine pH Urine WBC (Auto) Urine Creatinine Urine Total Protein Fluid Total Protein Vancomycin Trough Rheumatoid Factor Complement C4 Miscellaneous Test Crossmatch 10/04/16 10/05/16 10/05/16 23:25 04:30 05:00 WBC RBC 2.64 L Hgb 7.5 L Hct 22.6 L MCV MCH MCHC RDW 19.3 H Plt Count 80 L Lymph % (Auto) [place] % (Auto) Lymph # [place] # Baso # Seg Neutrophils % Seg Neuts % (Manual) Lymphocytes % (Manual) 12.0 L Monocytes % (Manual) Eosinophils % (Manual) Basophils % (Manual) Nucleated RBC % Seg Neutrophils # Seg Neutrophils # Man Lymphocytes # (Manual) Monocytes # (Manual) Eosinophils # (Manual) PT INR Fibrinogen dRVVT Confirm Interp Factor V Activity POC ABG pH 7.475 H POC ABG pCO2 33.3 L POC ABG pO2 140 H ABG pO2 ABG HCO3 ABG Base Excess ABG Hemoglobin Oxyhemoglobin Sodium Potassium Chloride Carbon Dioxide BUN Creatinine Glucose POC Glucose 141 H Lactic Acid Calcium Phosphorus Magnesium Direct Bilirubin AST ALT Alkaline Phosphatase Lactate Dehydrogenase Troponin T C-Reactive Protein Total Protein Albumin Prealbumin Triglycerides Cholesterol LDL Cholesterol Direct HDL Cholesterol Urine pH Urine WBC (Auto) Urine Creatinine Urine Total Protein Fluid Total Protein Vancomycin Trough Rheumatoid Factor Complement C4 Miscellaneous Test Crossmatch 10/05/16 10/05/16 10/05/16 05:00 05:09 12:58 WBC RBC Hgb Hct MCV MCH MCHC RDW Plt Count Lymph % (Auto) [place] % (Auto) Lymph # [place] # Baso # Seg Neutrophils % Seg Neuts % (Manual) Lymphocytes % (Manual) Monocytes % (Manual) Eosinophils % (Manual) Basophils % (Manual) Nucleated RBC % Seg Neutrophils # Seg Neutrophils # Man Lymphocytes # (Manual) Monocytes # (Manual) Eosinophils # (Manual) PT INR Fibrinogen dRVVT Confirm Interp Factor V Activity POC ABG pH POC ABG pCO2 POC ABG pO2 ABG pO2 ABG HCO3 ABG Base Excess ABG Hemoglobin Oxyhemoglobin Sodium 131 L Potassium Chloride 94.0 L Carbon Dioxide 20 L BUN 22 H Creatinine 2.0 H Glucose 123 H POC Glucose 166 H 179 H Lactic Acid Calcium 7.7 L Phosphorus 2.20 L D Magnesium Direct Bilirubin AST ALT Alkaline Phosphatase Lactate Dehydrogenase Troponin T C-Reactive Protein Total Protein Albumin Prealbumin Triglycerides Cholesterol LDL Cholesterol Direct HDL Cholesterol Urine pH Urine WBC (Auto) Urine Creatinine Urine Total Protein Fluid Total Protein Vancomycin Trough Rheumatoid Factor Complement C4 Miscellaneous Test Crossmatch 10/05/16 10/05/16 10/05/16 15:50 18:53 23:12 WBC RBC Hgb Hct MCV MCH MCHC RDW Plt Count Lymph % (Auto) [place] % (Auto) Lymph # [place] # Baso # Seg Neutrophils % Seg Neuts % (Manual) Lymphocytes % (Manual) Monocytes % (Manual) Eosinophils % (Manual) Basophils % (Manual) Nucleated RBC % Seg Neutrophils # Seg Neutrophils # Man Lymphocytes # (Manual) Monocytes # (Manual) Eosinophils # (Manual) PT INR Fibrinogen dRVVT Confirm Interp Factor V Activity POC ABG pH POC ABG pCO2 POC ABG pO2 ABG pO2 ABG HCO3 ABG Base Excess ABG Hemoglobin Oxyhemoglobin Sodium Potassium Chloride Carbon Dioxide BUN Creatinine Glucose POC Glucose 150 H 164 H Lactic Acid Calcium Phosphorus Magnesium Direct Bilirubin AST ALT Alkaline Phosphatase Lactate Dehydrogenase Troponin T C-Reactive Protein Total Protein Albumin Prealbumin Triglycerides Cholesterol LDL Cholesterol Direct HDL Cholesterol Urine pH Urine WBC (Auto) Urine Creatinine Urine Total Protein Fluid Total Protein Vancomycin Trough Rheumatoid Factor Complement C4 Miscellaneous Test Crossmatch See Detail 10/06/16 10/06/16 10/06/16 03:50 03:50 04:53 WBC RBC 3.00 L Hgb 8.6 L Hct 25.8 L MCV MCH MCHC RDW 17.9 H Plt Count 65 L Lymph % (Auto) [place] % (Auto) Lymph # [place] # Baso # Seg Neutrophils % Seg Neuts % (Manual) 30.0 L Lymphocytes % (Manual) 5.0 L Monocytes % (Manual) Eosinophils % (Manual) Basophils % (Manual) Nucleated RBC % Seg Neutrophils # Seg Neutrophils # Man Lymphocytes # (Manual) 0.4 L Monocytes # (Manual) Eosinophils # (Manual) PT INR Fibrinogen dRVVT Confirm Interp Factor V Activity POC ABG pH 7.310 L POC ABG pCO2 49.0 H POC ABG pO2 ABG pO2 ABG HCO3 ABG Base Excess ABG Hemoglobin Oxyhemoglobin Sodium 133 L Potassium Chloride 95.9 L Carbon Dioxide BUN 26 H Creatinine 2.0 H Glucose 116 H POC Glucose Lactic Acid Calcium 7.8 L Phosphorus Magnesium Direct Bilirubin AST ALT Alkaline Phosphatase Lactate Dehydrogenase Troponin T C-Reactive Protein Total Protein Albumin Prealbumin Triglycerides Cholesterol LDL Cholesterol Direct HDL Cholesterol Urine pH Urine WBC (Auto) Urine Creatinine Urine Total Protein Fluid Total Protein Vancomycin Trough Rheumatoid Factor Complement C4 Miscellaneous Test Crossmatch 10/06/16 10/06/16 10/06/16 05:23 11:52 18:34 WBC RBC Hgb Hct MCV MCH MCHC RDW Plt Count Lymph % (Auto) [place] % (Auto) Lymph # [place] # Baso # Seg Neutrophils % Seg Neuts % (Manual) Lymphocytes % (Manual) Monocytes % (Manual) Eosinophils % (Manual) Basophils % (Manual) Nucleated RBC % Seg Neutrophils # Seg Neutrophils # Man Lymphocytes # (Manual) Monocytes # (Manual) Eosinophils # (Manual) PT INR Fibrinogen dRVVT Confirm Interp Factor V Activity POC ABG pH POC ABG pCO2 POC ABG pO2 ABG pO2 ABG HCO3 ABG Base Excess ABG Hemoglobin Oxyhemoglobin Sodium Potassium Chloride Carbon Dioxide BUN Creatinine Glucose POC Glucose 126 H 116 H 129 H Lactic Acid Calcium Phosphorus Magnesium Direct Bilirubin AST ALT Alkaline Phosphatase Lactate Dehydrogenase Troponin T C-Reactive Protein Total Protein Albumin Prealbumin Triglycerides Cholesterol LDL Cholesterol Direct HDL Cholesterol Urine pH Urine WBC (Auto) Urine Creatinine Urine Total Protein Fluid Total Protein Vancomycin Trough Rheumatoid Factor Complement C4 Miscellaneous Test Crossmatch 10/07/16 10/07/16 10/07/16 03:45 05:00 10:00 WBC 17.0 H RBC 2.68 L Hgb 7.3 L Hct 25.3 L MCV MCH 27 L MCHC 29 L RDW 19.6 H Plt Count 74 L Lymph % (Auto) [place] % (Auto) Lymph # [place] # Baso # Seg Neutrophils % Seg Neuts % (Manual) Lymphocytes % (Manual) 12.0 L Monocytes % (Manual) Eosinophils % (Manual) Basophils % (Manual) Nucleated RBC % 4.0 H Seg Neutrophils # Seg Neutrophils # Man 10.7 H Lymphocytes # (Manual) Monocytes # (Manual) Eosinophils # (Manual) PT INR Fibrinogen dRVVT Confirm Interp Factor V Activity POC ABG pH POC ABG pCO2 POC ABG pO2 ABG pO2 ABG HCO3 ABG Base Excess ABG Hemoglobin Oxyhemoglobin Sodium 130 L Potassium 3.2 L Chloride 93.9 L Carbon Dioxide 20 L BUN 44 H Creatinine 2.7 H Glucose 129 H POC Glucose Lactic Acid Calcium 7.4 L Phosphorus Magnesium Direct Bilirubin AST ALT 6 L Alkaline Phosphatase 195 H Lactate Dehydrogenase Troponin T C-Reactive Protein Total Protein 4.9 L Albumin 1.0 L Prealbumin Triglycerides Cholesterol LDL Cholesterol Direct HDL Cholesterol Urine pH Urine WBC (Auto) Urine Creatinine Urine Total Protein Fluid Total Protein Vancomycin Trough Rheumatoid Factor Complement C4 Miscellaneous Test Flexitest 1 H Crossmatch 10/07/16 10/07/16 10/07/16 10:00 11:24 18:10 WBC RBC Hgb Hct MCV MCH MCHC RDW Plt Count Lymph % (Auto) [place] % (Auto) Lymph # [place] # Baso # Seg Neutrophils % Seg Neuts % (Manual) Lymphocytes % (Manual) Monocytes % (Manual) Eosinophils % (Manual) Basophils % (Manual) Nucleated RBC % Seg Neutrophils # Seg Neutrophils # Man Lymphocytes # (Manual) Monocytes # (Manual) Eosinophils # (Manual) PT INR Fibrinogen dRVVT Confirm Interp Factor V Activity POC ABG pH POC ABG pCO2 POC ABG pO2 ABG pO2 ABG HCO3 ABG Base Excess ABG Hemoglobin Oxyhemoglobin Sodium Potassium Chloride Carbon Dioxide BUN Creatinine Glucose POC Glucose 116 H 130 H Lactic Acid Calcium Phosphorus Magnesium Direct Bilirubin AST ALT Alkaline Phosphatase Lactate Dehydrogenase Troponin T C-Reactive Protein 19.40 H Total Protein Albumin Prealbumin Triglycerides Cholesterol LDL Cholesterol Direct HDL Cholesterol Urine pH Urine WBC (Auto) Urine Creatinine Urine Total Protein Fluid Total Protein Vancomycin Trough Rheumatoid Factor Complement C4 Miscellaneous Test Crossmatch 10/07/16 10/08/16 10/08/16 18:30 00:00 04:00 WBC RBC Hgb Hct MCV MCH MCHC RDW Plt Count Lymph % (Auto) [place] % (Auto) Lymph # [place] # Baso # Seg Neutrophils % Seg Neuts % (Manual) Lymphocytes % (Manual) Monocytes % (Manual) Eosinophils % (Manual) Basophils % (Manual) Nucleated RBC % Seg Neutrophils # Seg Neutrophils # Man Lymphocytes # (Manual) Monocytes # (Manual) Eosinophils # (Manual) PT INR Fibrinogen dRVVT Confirm Interp Factor V Activity POC ABG pH POC ABG pCO2 POC ABG pO2 ABG pO2 ABG HCO3 ABG Base Excess ABG Hemoglobin Oxyhemoglobin Sodium 132 L Potassium 3.3 L Chloride 93.6 L Carbon Dioxide 17 L BUN 59 H Creatinine 2.7 H Glucose 121 H POC Glucose 122 H Lactic Acid Calcium 7.6 L Phosphorus Magnesium Direct Bilirubin AST ALT Alkaline Phosphatase Lactate Dehydrogenase Troponin T C-Reactive Protein Total Protein Albumin Prealbumin Triglycerides Cholesterol LDL Cholesterol Direct HDL Cholesterol Urine pH Urine WBC (Auto) > 182.0 H Urine Creatinine Urine Total Protein Fluid Total Protein Vancomycin Trough Rheumatoid Factor Complement C4 Miscellaneous Test Crossmatch 10/08/16 10/08/16 10/08/16 04:30 05:30 11:51 WBC RBC 5.15 H Hgb 14.4 H D Hct 44.5 H D MCV MCH MCHC RDW 19.5 H Plt Count 56 L Lymph % (Auto) [place] % (Auto) Lymph # [place] # Baso # Seg Neutrophils % Seg Neuts % (Manual) 24.0 L Lymphocytes % (Manual) 8.0 L Monocytes % (Manual) Eosinophils % (Manual) Basophils % (Manual) Nucleated RBC % 9.0 H Seg Neutrophils # Seg Neutrophils # Man Lymphocytes # (Manual) 0.7 L Monocytes # (Manual) Eosinophils # (Manual) PT INR Fibrinogen dRVVT Confirm Interp Factor V Activity POC ABG pH POC ABG pCO2 POC ABG pO2 ABG pO2 ABG HCO3 ABG Base Excess ABG Hemoglobin Oxyhemoglobin Sodium Potassium Chloride Carbon Dioxide BUN Creatinine Glucose POC Glucose 125 H 150 H Lactic Acid Calcium Phosphorus Magnesium Direct Bilirubin AST ALT Alkaline Phosphatase Lactate Dehydrogenase Troponin T C-Reactive Protein Total Protein Albumin Prealbumin Triglycerides Cholesterol LDL Cholesterol Direct HDL Cholesterol Urine pH Urine WBC (Auto) Urine Creatinine Urine Total Protein Fluid Total Protein Vancomycin Trough Rheumatoid Factor Complement C4 Miscellaneous Test Crossmatch 08/19/17 08/19/17 08/19/17 12:49 17:07 19:30 WBC RBC Hgb 7.1 L D Hct 22.4 L D MCV MCH MCHC RDW Plt Count Lymph % (Auto) [place] % (Auto) Lymph # [place] # Baso # Seg Neutrophils % Seg Neuts % (Manual) Lymphocytes % (Manual) Monocytes % (Manual) Eosinophils % (Manual) Basophils % (Manual) Nucleated RBC % Seg Neutrophils # Seg Neutrophils # Man Lymphocytes # (Manual) Monocytes # (Manual) Eosinophils # (Manual) PT INR Fibrinogen dRVVT Confirm Interp Factor V Activity POC ABG pH POC ABG pCO2 28.2 L POC ABG pO2 111 H ABG pO2 ABG HCO3 ABG Base Excess ABG Hemoglobin Oxyhemoglobin Sodium Potassium Chloride Carbon Dioxide BUN Creatinine Glucose POC Glucose 145 H Lactic Acid Calcium Phosphorus Magnesium Direct Bilirubin AST ALT Alkaline Phosphatase Lactate Dehydrogenase Troponin T C-Reactive Protein Total Protein Albumin Prealbumin Triglycerides Cholesterol LDL Cholesterol Direct HDL Cholesterol Urine pH Urine WBC (Auto) Urine Creatinine Urine Total Protein Fluid Total Protein Vancomycin Trough Rheumatoid Factor Complement C4 Miscellaneous Test Crossmatch 10/08/16 10/09/16 10/09/16 19:30 03:45 03:45 WBC 12.6 H RBC 2.36 L Hgb 6.7 L Hct 21.1 L MCV MCH MCHC RDW 19.5 H Plt Count 75 L Lymph % (Auto) [place] % (Auto) Lymph # [place] # Baso # Seg Neutrophils % Seg Neuts % (Manual) Lymphocytes % (Manual) Monocytes % (Manual) 10.0 H Eosinophils % (Manual) Basophils % (Manual) Nucleated RBC % 3.0 H Seg Neutrophils # Seg Neutrophils # Man Lymphocytes # (Manual) Monocytes # (Manual) 1.3 H Eosinophils # (Manual) PT 18.0 H INR 1.41 H Fibrinogen dRVVT Confirm Interp Factor V Activity POC ABG pH POC ABG pCO2 POC ABG pO2 ABG pO2 ABG HCO3 ABG Base Excess ABG Hemoglobin Oxyhemoglobin Sodium 135 L Potassium Chloride Carbon Dioxide 17 L BUN 81 H Creatinine 3.2 H Glucose 109 H POC Glucose Lactic Acid Calcium 7.4 L Phosphorus 4.60 H D Magnesium Direct Bilirubin AST ALT Alkaline Phosphatase Lactate Dehydrogenase Troponin T C-Reactive Protein Total Protein Albumin Prealbumin Triglycerides Cholesterol LDL Cholesterol Direct HDL Cholesterol Urine pH Urine WBC (Auto) Urine Creatinine Urine Total Protein Fluid Total Protein Vancomycin Trough Rheumatoid Factor Complement C4 Miscellaneous Test Crossmatch 10/09/16 10/09/16 10/09/16 03:45 05:14 07:20 WBC RBC Hgb Hct MCV MCH MCHC RDW Plt Count Lymph % (Auto) [place] % (Auto) Lymph # [place] # Baso # Seg Neutrophils % Seg Neuts % (Manual) Lymphocytes % (Manual) Monocytes % (Manual) Eosinophils % (Manual) Basophils % (Manual) Nucleated RBC % Seg Neutrophils # Seg Neutrophils # Man Lymphocytes # (Manual) Monocytes # (Manual) Eosinophils # (Manual) PT 19.0 H INR 1.51 H Fibrinogen dRVVT Confirm Interp Factor V Activity POC ABG pH POC ABG pCO2 POC ABG pO2 ABG pO2 ABG HCO3 ABG Base Excess ABG Hemoglobin Oxyhemoglobin Sodium Potassium Chloride Carbon Dioxide BUN Creatinine Glucose POC Glucose 151 H Lactic Acid Calcium Phosphorus Magnesium Direct Bilirubin AST ALT Alkaline Phosphatase Lactate Dehydrogenase Troponin T C-Reactive Protein Total Protein Albumin Prealbumin Triglycerides Cholesterol LDL Cholesterol Direct HDL Cholesterol Urine pH Urine WBC (Auto) Urine Creatinine Urine Total Protein Fluid Total Protein Vancomycin Trough Rheumatoid Factor Complement C4 Miscellaneous Test Crossmatch See Detail 10/09/16 10/09/16 10/09/16 11:46 16:20 16:43 WBC RBC Hgb 7.2 L Hct 22.2 L MCV MCH MCHC RDW Plt Count Lymph % (Auto) [place] % (Auto) Lymph # [place] # Baso # Seg Neutrophils % Seg Neuts % (Manual) Lymphocytes % (Manual) Monocytes % (Manual) Eosinophils % (Manual) Basophils % (Manual) Nucleated RBC % Seg Neutrophils # Seg Neutrophils # Man Lymphocytes # (Manual) Monocytes # (Manual) Eosinophils # (Manual) PT INR Fibrinogen dRVVT Confirm Interp Factor V Activity POC ABG pH POC ABG pCO2 POC ABG pO2 ABG pO2 ABG HCO3 ABG Base Excess ABG Hemoglobin Oxyhemoglobin Sodium Potassium Chloride Carbon Dioxide BUN Creatinine Glucose POC Glucose 133 H 141 H Lactic Acid Calcium Phosphorus Magnesium Direct Bilirubin AST ALT Alkaline Phosphatase Lactate Dehydrogenase Troponin T C-Reactive Protein Total Protein Albumin Prealbumin Triglycerides Cholesterol LDL Cholesterol Direct HDL Cholesterol Urine pH Urine WBC (Auto) Urine Creatinine Urine Total Protein Fluid Total Protein Vancomycin Trough Rheumatoid Factor Complement C4 Miscellaneous Test Crossmatch 10/10/16 10/10/16 10/10/16 05:00 05:00 11:19 WBC 18.5 H RBC 2.19 L Hgb 6.4 L Hct 19.6 L* MCV MCH MCHC RDW 19.3 H Plt Count 93 L Lymph % (Auto) [place] % (Auto) Lymph # [place] # Baso # Seg Neutrophils % Seg Neuts % (Manual) Lymphocytes % (Manual) 10.0 L Monocytes % (Manual) Eosinophils % (Manual) Basophils % (Manual) Nucleated RBC % 4.0 H Seg Neutrophils # Seg Neutrophils # Man 11.3 H Lymphocytes # (Manual) Monocytes # (Manual) Eosinophils # (Manual) PT INR Fibrinogen dRVVT Confirm Interp Factor V Activity POC ABG pH POC ABG pCO2 POC ABG pO2 ABG pO2 ABG HCO3 ABG Base Excess ABG Hemoglobin Oxyhemoglobin Sodium Potassium 5.7 H D Chloride Carbon Dioxide 16 L BUN 94 H Creatinine 3.1 H Glucose 131 H POC Glucose 153 H Lactic Acid Calcium 8.2 L Phosphorus 5.10 H Magnesium 2.40 H Direct Bilirubin 0.3 H AST ALT < 5 L Alkaline Phosphatase 319 H Lactate Dehydrogenase Troponin T C-Reactive Protein Total Protein 5.1 L Albumin 1.0 L Prealbumin Triglycerides Cholesterol LDL Cholesterol Direct HDL Cholesterol Urine pH Urine WBC (Auto) Urine Creatinine Urine Total Protein Fluid Total Protein Vancomycin Trough Rheumatoid Factor Complement C4 Miscellaneous Test Crossmatch 10/10/16 10/10/16 10/11/16 17:50 23:30 04:15 WBC RBC Hgb Hct MCV MCH MCHC RDW Plt Count Lymph % (Auto) [place] % (Auto) Lymph # [place] # Baso # Seg Neutrophils % Seg Neuts % (Manual) Lymphocytes % (Manual) Monocytes % (Manual) Eosinophils % (Manual) Basophils % (Manual) Nucleated RBC % Seg Neutrophils # Seg Neutrophils # Man Lymphocytes # (Manual) Monocytes # (Manual) Eosinophils # (Manual) PT INR Fibrinogen dRVVT Confirm Interp Factor V Activity POC ABG pH POC ABG pCO2 POC ABG pO2 ABG pO2 ABG HCO3 ABG Base Excess ABG Hemoglobin Oxyhemoglobin Sodium Potassium Chloride 96.4 L Carbon Dioxide 21 L BUN 57 H Creatinine 2.1 H Glucose 151 H POC Glucose 146 H 141 H Lactic Acid Calcium 8.3 L Phosphorus Magnesium Direct Bilirubin AST ALT Alkaline Phosphatase Lactate Dehydrogenase Troponin T C-Reactive Protein Total Protein Albumin Prealbumin Triglycerides Cholesterol LDL Cholesterol Direct HDL Cholesterol Urine pH Urine WBC (Auto) Urine Creatinine Urine Total Protein Fluid Total Protein Vancomycin Trough Rheumatoid Factor Complement C4 Miscellaneous Test Crossmatch 10/11/16 10/11/16 10/11/16 04:15 04:15 05:30 WBC 28.3 H RBC 3.12 L Hgb 9.3 L Hct 28.7 L D MCV MCH MCHC RDW 17.7 H Plt Count 128 L Lymph % (Auto) [place] % (Auto) Lymph # [place] # Baso # Seg Neutrophils % Seg Neuts % (Manual) Lymphocytes % (Manual) Monocytes % (Manual) Eosinophils % (Manual) Basophils % (Manual) Nucleated RBC % Seg Neutrophils # Seg Neutrophils # Man Lymphocytes # (Manual) Monocytes # (Manual) Eosinophils # (Manual) PT INR Fibrinogen dRVVT Confirm Interp Factor V Activity POC ABG pH POC ABG pCO2 POC ABG pO2 ABG pO2 ABG HCO3 ABG Base Excess ABG Hemoglobin Oxyhemoglobin Sodium Potassium Chloride Carbon Dioxide BUN Creatinine Glucose POC Glucose 167 H Lactic Acid Calcium Phosphorus Magnesium Direct Bilirubin AST ALT Alkaline Phosphatase Lactate Dehydrogenase Troponin T C-Reactive Protein 15.80 H Total Protein Albumin Prealbumin Triglycerides Cholesterol LDL Cholesterol Direct HDL Cholesterol Urine pH Urine WBC (Auto) Urine Creatinine Urine Total Protein Fluid Total Protein Vancomycin Trough Rheumatoid Factor Complement C4 Miscellaneous Test Crossmatch 10/11/16 10/11/16 10/11/16 11:40 15:49 23:57 WBC RBC Hgb Hct MCV MCH MCHC RDW Plt Count Lymph % (Auto) [place] % (Auto) Lymph # [place] # [place] # Seg Neutrophils % Seg Neuts % (Manual) Lymphocytes % (Manual) Monocytes % (Manual) Eosinophils % (Manual) Basophils % (Manual) Nucleated RBC % Seg Neutrophils # Seg Neutrophils # Man Lymphocytes # (Manual) Monocytes # (Manual) Eosinophils # (Manual) PT INR Fibrinogen dRVVT Confirm Interp Factor V Activity POC ABG pH POC ABG pCO2 POC ABG pO2 ABG pO2 ABG HCO3 ABG Base Excess ABG Hemoglobin Oxyhemoglobin Sodium Potassium Chloride Carbon Dioxide BUN Creatinine Glucose POC Glucose 139 H 168 H 161 H Lactic Acid Calcium Phosphorus Magnesium Direct Bilirubin AST ALT Alkaline Phosphatase Lactate Dehydrogenase Troponin T C-Reactive Protein Total Protein Albumin Prealbumin Triglycerides Cholesterol LDL Cholesterol Direct HDL Cholesterol Urine pH Urine WBC (Auto) Urine Creatinine Urine Total Protein Fluid Total Protein Vancomycin Trough Rheumatoid Factor Complement C4 Miscellaneous Test Crossmatch 10/12/16 10/12/16 10/12/16 04:40 04:40 05:44 WBC 22.5 H RBC 2.88 L Hgb 8.8 L Hct 26.8 L MCV MCH MCHC RDW 17.8 H Plt Count Lymph % (Auto) [place] % (Auto) Lymph # [place] # Baso # Seg Neutrophils % Seg Neuts % (Manual) Lymphocytes % (Manual) Monocytes % (Manual) Eosinophils % (Manual) Basophils % (Manual) Nucleated RBC % Seg Neutrophils # Seg Neutrophils # Man Lymphocytes # (Manual) Monocytes # (Manual) Eosinophils # (Manual) PT INR Fibrinogen dRVVT Confirm Interp Factor V Activity POC ABG pH POC ABG pCO2 POC ABG pO2 ABG pO2 ABG HCO3 ABG Base Excess ABG Hemoglobin Oxyhemoglobin Sodium 134 L Potassium Chloride 93.0 L Carbon Dioxide BUN 74 H Creatinine 2.5 H Glucose 137 H POC Glucose 158 H Lactic Acid Calcium 8.2 L Phosphorus Magnesium Direct Bilirubin AST ALT Alkaline Phosphatase Lactate Dehydrogenase Troponin T C-Reactive Protein Total Protein Albumin Prealbumin Triglycerides Cholesterol LDL Cholesterol Direct HDL Cholesterol Urine pH Urine WBC (Auto) Urine Creatinine Urine Total Protein Fluid Total Protein Vancomycin Trough Rheumatoid Factor Complement C4 Miscellaneous Test Crossmatch 10/12/16 10/12/16 10/12/16 12:27 18:18 23:46 WBC RBC Hgb Hct MCV MCH MCHC RDW Plt Count Lymph % (Auto) [place] % (Auto) Lymph # [place] # Baso # Seg Neutrophils % Seg Neuts % (Manual) Lymphocytes % (Manual) Monocytes % (Manual) Eosinophils % (Manual) Basophils % (Manual) Nucleated RBC % Seg Neutrophils # Seg Neutrophils # Man Lymphocytes # (Manual) Monocytes # (Manual) Eosinophils # (Manual) PT INR Fibrinogen dRVVT Confirm Interp Factor V Activity POC ABG pH POC ABG pCO2 POC ABG pO2 ABG pO2 ABG HCO3 ABG Base Excess ABG Hemoglobin Oxyhemoglobin Sodium Potassium Chloride Carbon Dioxide BUN Creatinine Glucose POC Glucose 153 H 140 H 150 H Lactic Acid Calcium Phosphorus Magnesium Direct Bilirubin AST ALT Alkaline Phosphatase Lactate Dehydrogenase Troponin T C-Reactive Protein Total Protein Albumin Prealbumin Triglycerides Cholesterol LDL Cholesterol Direct HDL Cholesterol Urine pH Urine WBC (Auto) Urine Creatinine Urine Total Protein Fluid Total Protein Vancomycin Trough Rheumatoid Factor Complement C4 Miscellaneous Test Crossmatch 10/13/16 10/13/16 10/13/16 06:22 09:20 12:29 WBC RBC Hgb Hct MCV MCH MCHC RDW Plt Count Lymph % (Auto) [place] % (Auto) Lymph # [place] # Baso # Seg Neutrophils % Seg Neuts % (Manual) Lymphocytes % (Manual) Monocytes % (Manual) Eosinophils % (Manual) Basophils % (Manual) Nucleated RBC % Seg Neutrophils # Seg Neutrophils # Man Lymphocytes # (Manual) Monocytes # (Manual) Eosinophils # (Manual) PT INR Fibrinogen dRVVT Confirm Interp Factor V Activity POC ABG pH POC ABG pCO2 POC ABG pO2 ABG pO2 ABG HCO3 ABG Base Excess ABG Hemoglobin Oxyhemoglobin Sodium Potassium Chloride Carbon Dioxide BUN Creatinine Glucose POC Glucose 165 H 193 H Lactic Acid Calcium Phosphorus Magnesium Direct Bilirubin AST ALT Alkaline Phosphatase Lactate Dehydrogenase Troponin T C-Reactive Protein Total Protein Albumin Prealbumin Triglycerides Cholesterol LDL Cholesterol Direct HDL Cholesterol Urine pH Urine WBC (Auto) Urine Creatinine Urine Total Protein Fluid Total Protein Vancomycin Trough Rheumatoid Factor Complement C4 Miscellaneous Test Flexitest 1 H Crossmatch 10/13/16 10/13/16 10/13/16 18:09 Unknown Unknown WBC 23.4 H RBC 2.83 L Hgb 8.7 L Hct 26.1 L MCV MCH MCHC RDW 18.1 H Plt Count Lymph % (Auto) [place] % (Auto) Lymph # [place] # Baso # Seg Neutrophils % Seg Neuts % (Manual) Lymphocytes % (Manual) Monocytes % (Manual) Eosinophils % (Manual) Basophils % (Manual) Nucleated RBC % Seg Neutrophils # Seg Neutrophils # Man Lymphocytes # (Manual) Monocytes # (Manual) Eosinophils # (Manual) PT INR Fibrinogen dRVVT Confirm Interp Factor V Activity POC ABG pH POC ABG pCO2 POC ABG pO2 ABG pO2 ABG HCO3 ABG Base Excess ABG Hemoglobin Oxyhemoglobin Sodium Potassium Chloride 95.8 L Carbon Dioxide BUN 82 H Creatinine 2.6 H Glucose 152 H POC Glucose 166 H Lactic Acid Calcium Phosphorus Magnesium Direct Bilirubin AST ALT Alkaline Phosphatase Lactate Dehydrogenase Troponin T C-Reactive Protein Total Protein Albumin Prealbumin Triglycerides Cholesterol LDL Cholesterol Direct HDL Cholesterol Urine pH Urine WBC (Auto) Urine Creatinine Urine Total Protein Fluid Total Protein Vancomycin Trough Rheumatoid Factor Complement C4 Miscellaneous Test Crossmatch 10/14/16 10/14/16 10/14/16 05:38 06:35 08:10 WBC 20.7 H RBC 2.81 L Hgb 8.4 L Hct 27.2 L MCV MCH MCHC RDW 19.4 H Plt Count Lymph % (Auto) [place] % (Auto) Lymph # [place] # Baso # Seg Neutrophils % Seg Neuts % (Manual) Lymphocytes % (Manual) Monocytes % (Manual) Eosinophils % (Manual) Basophils % (Manual) Nucleated RBC % Seg Neutrophils # Seg Neutrophils # Man Lymphocytes # (Manual) Monocytes # (Manual) Eosinophils # (Manual) PT INR Fibrinogen dRVVT Confirm Interp Factor V Activity POC ABG pH POC ABG pCO2 POC ABG pO2 ABG pO2 ABG HCO3 ABG Base Excess ABG Hemoglobin Oxyhemoglobin Sodium Potassium Chloride Carbon Dioxide BUN 58 H Creatinine 1.9 H Glucose 169 H POC Glucose 195 H Lactic Acid Calcium Phosphorus Magnesium Direct Bilirubin AST ALT Alkaline Phosphatase Lactate Dehydrogenase Troponin T C-Reactive Protein Total Protein Albumin Prealbumin Triglycerides Cholesterol LDL Cholesterol Direct HDL Cholesterol Urine pH Urine WBC (Auto) Urine Creatinine Urine Total Protein Fluid Total Protein Vancomycin Trough Rheumatoid Factor Complement C4 Miscellaneous Test Crossmatch 10/14/16 10/14/16 10/14/16 11:44 17:13 23:28 WBC RBC Hgb Hct MCV MCH MCHC RDW Plt Count Lymph % (Auto) [place] % (Auto) Lymph # [place] # Baso # Seg Neutrophils % Seg Neuts % (Manual) Lymphocytes % (Manual) Monocytes % (Manual) Eosinophils % (Manual) Basophils % (Manual) Nucleated RBC % Seg Neutrophils # Seg Neutrophils # Man Lymphocytes # (Manual) Monocytes # (Manual) Eosinophils # (Manual) PT INR Fibrinogen dRVVT Confirm Interp Factor V Activity POC ABG pH POC ABG pCO2 POC ABG pO2 ABG pO2 ABG HCO3 ABG Base Excess ABG Hemoglobin Oxyhemoglobin Sodium Potassium Chloride Carbon Dioxide BUN Creatinine Glucose POC Glucose 174 H 121 H 151 H Lactic Acid Calcium Phosphorus Magnesium Direct Bilirubin AST ALT Alkaline Phosphatase Lactate Dehydrogenase Troponin T C-Reactive Protein Total Protein Albumin Prealbumin Triglycerides Cholesterol LDL Cholesterol Direct HDL Cholesterol Urine pH Urine WBC (Auto) Urine Creatinine Urine Total Protein Fluid Total Protein Vancomycin Trough Rheumatoid Factor Complement C4 Miscellaneous Test Crossmatch 10/15/16 10/15/16 10/15/16 05:06 12:26 17:48 WBC RBC Hgb Hct MCV MCH MCHC RDW Plt Count Lymph % (Auto) [place] % (Auto) Lymph # [place] # Baso # Seg Neutrophils % Seg Neuts % (Manual) Lymphocytes % (Manual) Monocytes % (Manual) Eosinophils % (Manual) Basophils % (Manual) Nucleated RBC % Seg Neutrophils # Seg Neutrophils # Man Lymphocytes # (Manual) Monocytes # (Manual) Eosinophils # (Manual) PT INR Fibrinogen dRVVT Confirm Interp Factor V Activity POC ABG pH POC ABG pCO2 POC ABG pO2 ABG pO2 ABG HCO3 ABG Base Excess ABG Hemoglobin Oxyhemoglobin Sodium Potassium Chloride Carbon Dioxide BUN Creatinine Glucose POC Glucose 151 H 149 H 153 H Lactic Acid Calcium Phosphorus Magnesium Direct Bilirubin AST ALT Alkaline Phosphatase Lactate Dehydrogenase Troponin T C-Reactive Protein Total Protein Albumin Prealbumin Triglycerides Cholesterol LDL Cholesterol Direct HDL Cholesterol Urine pH Urine WBC (Auto) Urine Creatinine Urine Total Protein Fluid Total Protein Vancomycin Trough Rheumatoid Factor Complement C4 Miscellaneous Test Crossmatch 10/15/16 10/15/16 10/16/16 Unknown Unknown 00:02 WBC 23.4 H RBC 2.78 L Hgb 8.5 L Hct 25.7 L MCV MCH MCHC RDW 18.7 H Plt Count Lymph % (Auto) [place] % (Auto) Lymph # [place] # Baso # Seg Neutrophils % Seg Neuts % (Manual) Lymphocytes % (Manual) Monocytes % (Manual) Eosinophils % (Manual) Basophils % (Manual) Nucleated RBC % Seg Neutrophils # Seg Neutrophils # Man Lymphocytes # (Manual) Monocytes # (Manual) Eosinophils # (Manual) PT INR Fibrinogen dRVVT Confirm Interp Factor V Activity POC ABG pH POC ABG pCO2 POC ABG pO2 ABG pO2 ABG HCO3 ABG Base Excess ABG Hemoglobin Oxyhemoglobin Sodium Potassium Chloride Carbon Dioxide BUN 73 H Creatinine 2.3 H Glucose 120 H POC Glucose 137 H Lactic Acid Calcium Phosphorus Magnesium Direct Bilirubin AST ALT Alkaline Phosphatase Lactate Dehydrogenase Troponin T C-Reactive Protein Total Protein Albumin Prealbumin Triglycerides Cholesterol LDL Cholesterol Direct HDL Cholesterol Urine pH Urine WBC (Auto) Urine Creatinine Urine Total Protein Fluid Total Protein Vancomycin Trough Rheumatoid Factor Complement C4 Miscellaneous Test Crossmatch 10/16/16 10/16/16 10/16/16 05:44 06:25 06:25 WBC 22.5 H RBC 2.76 L Hgb 8.3 L Hct 25.2 L MCV MCH MCHC RDW 18.3 H Plt Count Lymph % (Auto) [place] % (Auto) Lymph # [place] # Baso # Seg Neutrophils % Seg Neuts % (Manual) Lymphocytes % (Manual) Monocytes % (Manual) Eosinophils % (Manual) Basophils % (Manual) Nucleated RBC % Seg Neutrophils # Seg Neutrophils # Man Lymphocytes # (Manual) Monocytes # (Manual) Eosinophils # (Manual) PT INR Fibrinogen dRVVT Confirm Interp Factor V Activity POC ABG pH POC ABG pCO2 POC ABG pO2 ABG pO2 ABG HCO3 ABG Base Excess ABG Hemoglobin Oxyhemoglobin Sodium Potassium Chloride Carbon Dioxide BUN 92 H Creatinine 3.0 H Glucose 138 H POC Glucose 110 H Lactic Acid Calcium Phosphorus Magnesium Direct Bilirubin AST ALT Alkaline Phosphatase Lactate Dehydrogenase Troponin T C-Reactive Protein Total Protein Albumin Prealbumin Triglycerides Cholesterol LDL Cholesterol Direct HDL Cholesterol Urine pH Urine WBC (Auto) Urine Creatinine Urine Total Protein Fluid Total Protein Vancomycin Trough Rheumatoid Factor Complement C4 Miscellaneous Test Crossmatch 10/16/16 10/16/16 10/16/16 11:27 11:48 17:36 WBC RBC Hgb Hct MCV MCH MCHC RDW Plt Count Lymph % (Auto) [place] % (Auto) Lymph # [place] # Baso # Seg Neutrophils % Seg Neuts % (Manual) Lymphocytes % (Manual) Monocytes % (Manual) Eosinophils % (Manual) Basophils % (Manual) Nucleated RBC % Seg Neutrophils # Seg Neutrophils # Man Lymphocytes # (Manual) Monocytes # (Manual) Eosinophils # (Manual) PT INR Fibrinogen dRVVT Confirm Interp Factor V Activity POC ABG pH 7.582 H POC ABG pCO2 27.4 L POC ABG pO2 110 H ABG pO2 ABG HCO3 ABG Base Excess ABG Hemoglobin Oxyhemoglobin Sodium Potassium Chloride Carbon Dioxide BUN Creatinine Glucose POC Glucose 121 H 133 H Lactic Acid Calcium Phosphorus Magnesium Direct Bilirubin AST ALT Alkaline Phosphatase Lactate Dehydrogenase Troponin T C-Reactive Protein Total Protein Albumin Prealbumin Triglycerides Cholesterol LDL Cholesterol Direct HDL Cholesterol Urine pH Urine WBC (Auto) Urine Creatinine Urine Total Protein Fluid Total Protein Vancomycin Trough Rheumatoid Factor Complement C4 Miscellaneous Test Crossmatch 10/16/16 10/17/16 10/17/16 20:48 04:24 04:24 WBC 21.4 H RBC 2.72 L Hgb 8.0 L Hct 25.2 L MCV MCH MCHC RDW 18.0 H Plt Count Lymph % (Auto) [place] % (Auto) Lymph # [place] # Baso # Seg Neutrophils % Seg Neuts % (Manual) Lymphocytes % (Manual) Monocytes % (Manual) Eosinophils % (Manual) Basophils % (Manual) Nucleated RBC % Seg Neutrophils # Seg Neutrophils # Man Lymphocytes # (Manual) Monocytes # (Manual) Eosinophils # (Manual) PT INR Fibrinogen dRVVT Confirm Interp Factor V Activity POC ABG pH 7.561 H POC ABG pCO2 24.4 L POC ABG pO2 77 L ABG pO2 ABG HCO3 ABG Base Excess ABG Hemoglobin Oxyhemoglobin Sodium 148 H Potassium Chloride Carbon Dioxide BUN 104 H Creatinine 3.0 H Glucose 149 H POC Glucose Lactic Acid Calcium Phosphorus Magnesium Direct Bilirubin AST ALT Alkaline Phosphatase 138 H Lactate Dehydrogenase Troponin T C-Reactive Protein Total Protein 6.2 L Albumin 1.5 L Prealbumin Triglycerides Cholesterol LDL Cholesterol Direct HDL Cholesterol Urine pH Urine WBC (Auto) Urine Creatinine Urine Total Protein Fluid Total Protein Vancomycin Trough Rheumatoid Factor Complement C4 Miscellaneous Test Crossmatch 10/17/16 10/17/16 10/17/16 06:02 12:17 17:14 WBC RBC Hgb Hct MCV MCH MCHC RDW Plt Count Lymph % (Auto) [place] % (Auto) Lymph # [place] # Baso # Seg Neutrophils % Seg Neuts % (Manual) Lymphocytes % (Manual) Monocytes % (Manual) Eosinophils % (Manual) Basophils % (Manual) Nucleated RBC % Seg Neutrophils # Seg Neutrophils # Man Lymphocytes # (Manual) Monocytes # (Manual) Eosinophils # (Manual) PT INR Fibrinogen dRVVT Confirm Interp Factor V Activity POC ABG pH POC ABG pCO2 POC ABG pO2 ABG pO2 ABG HCO3 ABG Base Excess ABG Hemoglobin Oxyhemoglobin Sodium Potassium Chloride Carbon Dioxide BUN Creatinine Glucose POC Glucose 170 H 167 H 126 H Lactic Acid Calcium Phosphorus Magnesium Direct Bilirubin AST ALT Alkaline Phosphatase Lactate Dehydrogenase Troponin T C-Reactive Protein Total Protein Albumin Prealbumin Triglycerides Cholesterol LDL Cholesterol Direct HDL Cholesterol Urine pH Urine WBC (Auto) Urine Creatinine Urine Total Protein Fluid Total Protein Vancomycin Trough Rheumatoid Factor Complement C4 Miscellaneous Test Crossmatch 10/17/16 10/18/16 10/18/16 23:17 04:00 04:00 WBC 20.7 H RBC 2.47 L Hgb 7.4 L Hct 22.9 L MCV MCH MCHC RDW 17.5 H Plt Count Lymph % (Auto) [place] % (Auto) Lymph # [place] # Baso # Seg Neutrophils % Seg Neuts % (Manual) Lymphocytes % (Manual) Monocytes % (Manual) Eosinophils % (Manual) Basophils % (Manual) Nucleated RBC % Seg Neutrophils # Seg Neutrophils # Man Lymphocytes # (Manual) Monocytes # (Manual) Eosinophils # (Manual) PT INR Fibrinogen dRVVT Confirm Interp Factor V Activity POC ABG pH POC ABG pCO2 POC ABG pO2 ABG pO2 ABG HCO3 ABG Base Excess ABG Hemoglobin Oxyhemoglobin Sodium 149 H Potassium Chloride 107.9 H Carbon Dioxide 20 L BUN 117 H Creatinine 3.2 H Glucose 119 H POC Glucose 121 H Lactic Acid Calcium Phosphorus Magnesium Direct Bilirubin AST ALT Alkaline Phosphatase Lactate Dehydrogenase Troponin T C-Reactive Protein Total Protein Albumin Prealbumin Triglycerides Cholesterol LDL Cholesterol Direct HDL Cholesterol Urine pH Urine WBC (Auto) Urine Creatinine Urine Total Protein Fluid Total Protein Vancomycin Trough Rheumatoid Factor Complement C4 Miscellaneous Test Crossmatch 10/18/16 10/18/16 10/18/16 05:23 10:46 17:30 WBC RBC Hgb Hct MCV MCH MCHC RDW Plt Count Lymph % (Auto) [place] % (Auto) Lymph # [place] # Baso # Seg Neutrophils % Seg Neuts % (Manual) Lymphocytes % (Manual) Monocytes % (Manual) Eosinophils % (Manual) Basophils % (Manual) Nucleated RBC % Seg Neutrophils # Seg Neutrophils # Man Lymphocytes # (Manual) Monocytes # (Manual) Eosinophils # (Manual) PT INR Fibrinogen dRVVT Confirm Interp Factor V Activity POC ABG pH POC ABG pCO2 POC ABG pO2 ABG pO2 ABG HCO3 ABG Base Excess ABG Hemoglobin Oxyhemoglobin Sodium Potassium Chloride Carbon Dioxide BUN Creatinine Glucose POC Glucose 119 H 155 H 124 H Lactic Acid Calcium Phosphorus Magnesium Direct Bilirubin AST ALT Alkaline Phosphatase Lactate Dehydrogenase Troponin T C-Reactive Protein Total Protein Albumin Prealbumin Triglycerides Cholesterol LDL Cholesterol Direct HDL Cholesterol Urine pH Urine WBC (Auto) Urine Creatinine Urine Total Protein Fluid Total Protein Vancomycin Trough Rheumatoid Factor Complement C4 Miscellaneous Test Crossmatch 10/19/16 10/19/16 10/19/16 04:00 04:00 05:25 WBC 17.4 H RBC 2.54 L Hgb 7.7 L Hct 23.6 L MCV MCH MCHC RDW 17.3 H Plt Count Lymph % (Auto) [place] % (Auto) Lymph # [place] # Baso # Seg Neutrophils % Seg Neuts % (Manual) Lymphocytes % (Manual) Monocytes % (Manual) Eosinophils % (Manual) Basophils % (Manual) Nucleated RBC % Seg Neutrophils # Seg Neutrophils # Man Lymphocytes # (Manual) Monocytes # (Manual) Eosinophils # (Manual) PT INR Fibrinogen dRVVT Confirm Interp Factor V Activity POC ABG pH POC ABG pCO2 POC ABG pO2 ABG pO2 ABG HCO3 ABG Base Excess ABG Hemoglobin Oxyhemoglobin Sodium Potassium Chloride Carbon Dioxide BUN 72 H Creatinine 2.1 H Glucose 116 H POC Glucose 119 H Lactic Acid Calcium Phosphorus Magnesium Direct Bilirubin AST ALT Alkaline Phosphatase Lactate Dehydrogenase Troponin T C-Reactive Protein Total Protein Albumin Prealbumin Triglycerides Cholesterol LDL Cholesterol Direct HDL Cholesterol Urine pH Urine WBC (Auto) Urine Creatinine Urine Total Protein Fluid Total Protein Vancomycin Trough Rheumatoid Factor Complement C4 Miscellaneous Test Crossmatch 10/19/16 10/19/16 10/20/16 11:46 23:59 06:00 WBC RBC Hgb Hct MCV MCH MCHC RDW Plt Count Lymph % (Auto) [place] % (Auto) Lymph # [place] # Baso # Seg Neutrophils % Seg Neuts % (Manual) Lymphocytes % (Manual) Monocytes % (Manual) Eosinophils % (Manual) Basophils % (Manual) Nucleated RBC % Seg Neutrophils # Seg Neutrophils # Man Lymphocytes # (Manual) Monocytes # (Manual) Eosinophils # (Manual) PT INR Fibrinogen dRVVT Confirm Interp Factor V Activity POC ABG pH POC ABG pCO2 POC ABG pO2 ABG pO2 ABG HCO3 ABG Base Excess ABG Hemoglobin Oxyhemoglobin Sodium Potassium Chloride Carbon Dioxide 17 L BUN 94 H Creatinine 2.7 H Glucose POC Glucose 116 H 117 H Lactic Acid Calcium Phosphorus Magnesium Direct Bilirubin AST ALT Alkaline Phosphatase Lactate Dehydrogenase Troponin T C-Reactive Protein Total Protein Albumin Prealbumin Triglycerides Cholesterol LDL Cholesterol Direct HDL Cholesterol Urine pH Urine WBC (Auto) Urine Creatinine Urine Total Protein Fluid Total Protein Vancomycin Trough Rheumatoid Factor Complement C4 Miscellaneous Test Crossmatch 10/20/16 10/20/16 10/20/16 06:00 11:49 16:00 WBC 19.7 H RBC 2.51 L Hgb 7.7 L Hct 23.5 L MCV MCH MCHC RDW 17.5 H Plt Count Lymph % (Auto) [place] % (Auto) Lymph # [place] # Baso # Seg Neutrophils % Seg Neuts % (Manual) Lymphocytes % (Manual) Monocytes % (Manual) Eosinophils % (Manual) Basophils % (Manual) Nucleated RBC % Seg Neutrophils # Seg Neutrophils # Man Lymphocytes # (Manual) Monocytes # (Manual) Eosinophils # (Manual) PT INR Fibrinogen dRVVT Confirm Interp Factor V Activity POC ABG pH POC ABG pCO2 POC ABG pO2 ABG pO2 ABG HCO3 ABG Base Excess ABG Hemoglobin Oxyhemoglobin Sodium Potassium Chloride Carbon Dioxide BUN Creatinine Glucose POC Glucose 117 H Lactic Acid Calcium Phosphorus Magnesium Direct Bilirubin AST ALT Alkaline Phosphatase Lactate Dehydrogenase Troponin T C-Reactive Protein Total Protein Albumin Prealbumin Triglycerides Cholesterol LDL Cholesterol Direct HDL Cholesterol Urine pH Urine WBC (Auto) Urine Creatinine Urine Total Protein Fluid Total Protein Vancomycin Trough Rheumatoid Factor Complement C4 Miscellaneous Test Flexitest 1 H Crossmatch 10/20/16 10/20/16 10/21/16 18:36 23:39 04:00 WBC RBC Hgb Hct MCV MCH MCHC RDW Plt Count Lymph % (Auto) [place] % (Auto) Lymph # [place] # Baso # Seg Neutrophils % Seg Neuts % (Manual) Lymphocytes % (Manual) Monocytes % (Manual) Eosinophils % (Manual) Basophils % (Manual) Nucleated RBC % Seg Neutrophils # Seg Neutrophils # Man Lymphocytes # (Manual) Monocytes # (Manual) Eosinophils # (Manual) PT INR Fibrinogen dRVVT Confirm Interp Factor V Activity POC ABG pH POC ABG pCO2 POC ABG pO2 ABG pO2 ABG HCO3 ABG Base Excess ABG Hemoglobin Oxyhemoglobin Sodium Potassium 5.4 H D Chloride Carbon Dioxide 15 L BUN 110 H Creatinine 3.0 H Glucose POC Glucose 127 H 114 H Lactic Acid Calcium Phosphorus Magnesium Direct Bilirubin AST ALT Alkaline Phosphatase Lactate Dehydrogenase Troponin T C-Reactive Protein Total Protein Albumin Prealbumin Triglycerides Cholesterol LDL Cholesterol Direct HDL Cholesterol Urine pH Urine WBC (Auto) Urine Creatinine Urine Total Protein Fluid Total Protein Vancomycin Trough Rheumatoid Factor Complement C4 Miscellaneous Test Crossmatch 10/21/16 10/21/16 10/22/16 05:54 23:46 05:18 WBC RBC Hgb Hct MCV MCH MCHC RDW Plt Count Lymph % (Auto) [place] % (Auto) Lymph # [place] # Baso # Seg Neutrophils % Seg Neuts % (Manual) Lymphocytes % (Manual) Monocytes % (Manual) Eosinophils % (Manual) Basophils % (Manual) Nucleated RBC % Seg Neutrophils # Seg Neutrophils # Man Lymphocytes # (Manual) Monocytes # (Manual) Eosinophils # (Manual) PT INR Fibrinogen dRVVT Confirm Interp Factor V Activity POC ABG pH POC ABG pCO2 POC ABG pO2 ABG pO2 ABG HCO3 ABG Base Excess ABG Hemoglobin Oxyhemoglobin Sodium Potassium Chloride Carbon Dioxide BUN Creatinine Glucose POC Glucose 119 H 108 H 109 H Lactic Acid Calcium Phosphorus Magnesium Direct Bilirubin AST ALT Alkaline Phosphatase Lactate Dehydrogenase Troponin T C-Reactive Protein Total Protein Albumin Prealbumin Triglycerides Cholesterol LDL Cholesterol Direct HDL Cholesterol Urine pH Urine WBC (Auto) Urine Creatinine Urine Total Protein Fluid Total Protein Vancomycin Trough Rheumatoid Factor Complement C4 Miscellaneous Test Crossmatch 10/22/16 10/22/16 10/22/16 06:40 06:40 06:40 WBC 14.0 H RBC 2.03 L Hgb 7.0 L Hct 20.5 L MCV 98 H MCH 34 H MCHC 35 H RDW 17.8 H Plt Count Lymph % (Auto) [place] % (Auto) 9.9 H Lymph # [place] # 1.4 H Baso # 0.2 H Seg Neutrophils % 72.0 H Seg Neuts % (Manual) Lymphocytes % (Manual) Monocytes % (Manual) Eosinophils % (Manual) Basophils % (Manual) Nucleated RBC % Seg Neutrophils # 10.0 H Seg Neutrophils # Man Lymphocytes # (Manual) Monocytes # (Manual) Eosinophils # (Manual) PT INR Fibrinogen dRVVT Confirm Interp Factor V Activity POC ABG pH POC ABG pCO2 POC ABG pO2 ABG pO2 ABG HCO3 ABG Base Excess ABG Hemoglobin Oxyhemoglobin Sodium 130 L D Potassium Chloride 92.4 L Carbon Dioxide 20 L BUN 50 H Creatinine 1.6 H Glucose 589 H* POC Glucose Lactic Acid Calcium 7.8 L D Phosphorus Magnesium 1.60 L Direct Bilirubin AST ALT Alkaline Phosphatase Lactate Dehydrogenase Troponin T C-Reactive Protein Total Protein Albumin Prealbumin Triglycerides Cholesterol LDL Cholesterol Direct HDL Cholesterol Urine pH Urine WBC (Auto) Urine Creatinine Urine Total Protein Fluid Total Protein Vancomycin Trough Rheumatoid Factor Complement C4 Miscellaneous Test Crossmatch 10/22/16 10/22/16 10/22/16 11:39 16:44 23:36 WBC RBC Hgb Hct MCV MCH MCHC RDW Plt Count Lymph % (Auto) [place] % (Auto) Lymph # [place] # Baso # Seg Neutrophils % Seg Neuts % (Manual) Lymphocytes % (Manual) Monocytes % (Manual) Eosinophils % (Manual) Basophils % (Manual) Nucleated RBC % Seg Neutrophils # Seg Neutrophils # Man Lymphocytes # (Manual) Monocytes # (Manual) Eosinophils # (Manual) PT INR Fibrinogen dRVVT Confirm Interp Factor V Activity POC ABG pH POC ABG pCO2 POC ABG pO2 ABG pO2 ABG HCO3 ABG Base Excess ABG Hemoglobin Oxyhemoglobin Sodium Potassium Chloride Carbon Dioxide BUN Creatinine Glucose POC Glucose 142 H 163 H 123 H Lactic Acid Calcium Phosphorus Magnesium Direct Bilirubin AST ALT Alkaline Phosphatase Lactate Dehydrogenase Troponin T C-Reactive Protein Total Protein Albumin Prealbumin Triglycerides Cholesterol LDL Cholesterol Direct HDL Cholesterol Urine pH Urine WBC (Auto) Urine Creatinine Urine Total Protein Fluid Total Protein Vancomycin Trough Rheumatoid Factor Complement C4 Miscellaneous Test Crossmatch 10/23/16 10/23/16 10/23/16 04:58 06:00 12:12 WBC RBC Hgb Hct MCV MCH MCHC RDW Plt Count Lymph % (Auto) [place] % (Auto) Lymph # [place] # Baso # Seg Neutrophils % Seg Neuts % (Manual) Lymphocytes % (Manual) Monocytes % (Manual) Eosinophils % (Manual) Basophils % (Manual) Nucleated RBC % Seg Neutrophils # Seg Neutrophils # Man Lymphocytes # (Manual) Monocytes # (Manual) Eosinophils # (Manual) PT INR Fibrinogen dRVVT Confirm Interp Factor V Activity POC ABG pH POC ABG pCO2 POC ABG pO2 ABG pO2 ABG HCO3 ABG Base Excess ABG Hemoglobin Oxyhemoglobin Sodium 133 L Potassium 3.5 L Chloride 96.1 L Carbon Dioxide 18 L BUN 76 H Creatinine 2.1 H Glucose POC Glucose 133 H 138 H Lactic Acid Calcium 8.3 L Phosphorus Magnesium Direct Bilirubin AST ALT Alkaline Phosphatase Lactate Dehydrogenase Troponin T C-Reactive Protein Total Protein Albumin Prealbumin Triglycerides Cholesterol LDL Cholesterol Direct HDL Cholesterol Urine pH Urine WBC (Auto) Urine Creatinine Urine Total Protein Fluid Total Protein Vancomycin Trough Rheumatoid Factor Complement C4 Miscellaneous Test Crossmatch 10/23/16 10/23/16 10/24/16 16:53 23:37 04:00 WBC RBC Hgb Hct MCV MCH MCHC RDW Plt Count Lymph % (Auto) [place] % (Auto) Lymph # [place] # Baso # Seg Neutrophils % Seg Neuts % (Manual) Lymphocytes % (Manual) Monocytes % (Manual) Eosinophils % (Manual) Basophils % (Manual) Nucleated RBC % Seg Neutrophils # Seg Neutrophils # Man Lymphocytes # (Manual) Monocytes # (Manual) Eosinophils # (Manual) PT INR Fibrinogen dRVVT Confirm Interp Factor V Activity POC ABG pH POC ABG pCO2 POC ABG pO2 ABG pO2 ABG HCO3 ABG Base Excess ABG Hemoglobin Oxyhemoglobin Sodium 131 L Potassium Chloride 94.5 L Carbon Dioxide 19 L BUN 97 H Creatinine 2.6 H Glucose 110 H POC Glucose 125 H 123 H Lactic Acid Calcium 8.3 L Phosphorus Magnesium Direct Bilirubin AST ALT Alkaline Phosphatase Lactate Dehydrogenase Troponin T C-Reactive Protein Total Protein Albumin Prealbumin Triglycerides Cholesterol LDL Cholesterol Direct HDL Cholesterol Urine pH Urine WBC (Auto) Urine Creatinine Urine Total Protein Fluid Total Protein Vancomycin Trough Rheumatoid Factor Complement C4 Miscellaneous Test Crossmatch 10/24/16 10/24/16 10/24/16 07:49 11:39 17:52 WBC RBC Hgb 6.0 L Hct 19.7 L* MCV MCH MCHC RDW Plt Count Lymph % (Auto) [place] % (Auto) Lymph # [place] # Baso # Seg Neutrophils % Seg Neuts % (Manual) Lymphocytes % (Manual) Monocytes % (Manual) Eosinophils % (Manual) Basophils % (Manual) Nucleated RBC % Seg Neutrophils # Seg Neutrophils # Man Lymphocytes # (Manual) Monocytes # (Manual) Eosinophils # (Manual) PT INR Fibrinogen dRVVT Confirm Interp Factor V Activity POC ABG pH POC ABG pCO2 POC ABG pO2 ABG pO2 ABG HCO3 ABG Base Excess ABG Hemoglobin Oxyhemoglobin Sodium Potassium Chloride Carbon Dioxide BUN Creatinine Glucose POC Glucose 106 H 158 H Lactic Acid Calcium Phosphorus Magnesium Direct Bilirubin AST ALT Alkaline Phosphatase Lactate Dehydrogenase Troponin T C-Reactive Protein Total Protein Albumin Prealbumin Triglycerides Cholesterol LDL Cholesterol Direct HDL Cholesterol Urine pH Urine WBC (Auto) Urine Creatinine Urine Total Protein Fluid Total Protein Vancomycin Trough Rheumatoid Factor Complement C4 Miscellaneous Test Crossmatch 10/24/16 10/24/16 10/24/16 20:00 22:27 Unknown WBC RBC Hgb 9.4 L D Hct 27.5 L D MCV MCH MCHC RDW Plt Count Lymph % (Auto) [place] % (Auto) Lymph # [place] # Baso # Seg Neutrophils % Seg Neuts % (Manual) Lymphocytes % (Manual) Monocytes % (Manual) Eosinophils % (Manual) Basophils % (Manual) Nucleated RBC % Seg Neutrophils # Seg Neutrophils # Man Lymphocytes # (Manual) Monocytes # (Manual) Eosinophils # (Manual) PT INR Fibrinogen dRVVT Confirm Interp Factor V Activity POC ABG pH POC ABG pCO2 POC ABG pO2 ABG pO2 ABG HCO3 ABG Base Excess ABG Hemoglobin Oxyhemoglobin Sodium Potassium Chloride Carbon Dioxide BUN Creatinine Glucose POC Glucose 125 H Lactic Acid Calcium Phosphorus Magnesium Direct Bilirubin AST ALT Alkaline Phosphatase Lactate Dehydrogenase Troponin T C-Reactive Protein Total Protein Albumin Prealbumin Triglycerides Cholesterol LDL Cholesterol Direct HDL Cholesterol Urine pH Urine WBC (Auto) Urine Creatinine Urine Total Protein Fluid Total Protein Vancomycin Trough Rheumatoid Factor Complement C4 Miscellaneous Test Crossmatch See Detail 10/25/16 10/25/16 10/25/16 04:00 04:00 04:00 WBC 14.2 H RBC 2.98 L Hgb 9.0 L Hct 26.2 L MCV MCH MCHC RDW 16.6 H Plt Count Lymph % (Auto) [place] % (Auto) 10.7 H Lymph # [place] # 1.5 H Baso # Seg Neutrophils % 73.6 H Seg Neuts % (Manual) Lymphocytes % (Manual) Monocytes % (Manual) Eosinophils % (Manual) Basophils % (Manual) Nucleated RBC % Seg Neutrophils # 10.5 H Seg Neutrophils # Man Lymphocytes # (Manual) Monocytes # (Manual) Eosinophils # (Manual) PT INR Fibrinogen dRVVT Confirm Interp Factor V Activity POC ABG pH POC ABG pCO2 POC ABG pO2 ABG pO2 ABG HCO3 ABG Base Excess ABG Hemoglobin Oxyhemoglobin Sodium 132 L Potassium Chloride 94.7 L Carbon Dioxide BUN 51 H Creatinine 1.6 H Glucose 130 H POC Glucose Lactic Acid Calcium 8.3 L Phosphorus 1.60 L D Magnesium Direct Bilirubin AST ALT Alkaline Phosphatase Lactate Dehydrogenase Troponin T C-Reactive Protein Total Protein Albumin Prealbumin Triglycerides Cholesterol LDL Cholesterol Direct HDL Cholesterol Urine pH Urine WBC (Auto) Urine Creatinine Urine Total Protein Fluid Total Protein Vancomycin Trough Rheumatoid Factor Complement C4 Miscellaneous Test Crossmatch 10/25/16 10/25/16 10/25/16 04:32 11:48 17:22 WBC RBC Hgb Hct MCV MCH MCHC RDW Plt Count Lymph % (Auto) [place] % (Auto) Lymph # [place] # Baso # Seg Neutrophils % Seg Neuts % (Manual) Lymphocytes % (Manual) Monocytes % (Manual) Eosinophils % (Manual) Basophils % (Manual) Nucleated RBC % Seg Neutrophils # Seg Neutrophils # Man Lymphocytes # (Manual) Monocytes # (Manual) Eosinophils # (Manual) PT INR Fibrinogen dRVVT Confirm Interp Factor V Activity POC ABG pH POC ABG pCO2 POC ABG pO2 ABG pO2 ABG HCO3 ABG Base Excess ABG Hemoglobin Oxyhemoglobin Sodium Potassium Chloride Carbon Dioxide BUN Creatinine Glucose POC Glucose 124 H 171 H 120 H Lactic Acid Calcium Phosphorus Magnesium Direct Bilirubin AST ALT Alkaline Phosphatase Lactate Dehydrogenase Troponin T C-Reactive Protein Total Protein Albumin Prealbumin Triglycerides Cholesterol LDL Cholesterol Direct HDL Cholesterol Urine pH Urine WBC (Auto) Urine Creatinine Urine Total Protein Fluid Total Protein Vancomycin Trough Rheumatoid Factor Complement C4 Miscellaneous Test Crossmatch 10/26/16 10/26/16 10/26/16 04:54 07:06 07:06 WBC 16.9 H RBC 3.06 L Hgb 9.1 L Hct 26.9 L MCV MCH MCHC RDW 16.9 H Plt Count Lymph % (Auto) [place] % (Auto) Lymph # [place] # Baso # Seg Neutrophils % Seg Neuts % (Manual) 71.0 H Lymphocytes % (Manual) 5.0 L Monocytes % (Manual) 12.0 H Eosinophils % (Manual) Basophils % (Manual) Nucleated RBC % Seg Neutrophils # Seg Neutrophils # Man 12.0 H Lymphocytes # (Manual) 0.8 L Monocytes # (Manual) 2.0 H Eosinophils # (Manual) PT INR Fibrinogen dRVVT Confirm Interp Factor V Activity POC ABG pH POC ABG pCO2 POC ABG pO2 ABG pO2 ABG HCO3 ABG Base Excess ABG Hemoglobin Oxyhemoglobin Sodium 135 L Potassium Chloride 97.1 L Carbon Dioxide BUN 73 H Creatinine 2.2 H Glucose 117 H POC Glucose 123 H Lactic Acid Calcium Phosphorus 1.70 L Magnesium Direct Bilirubin AST ALT Alkaline Phosphatase Lactate Dehydrogenase Troponin T C-Reactive Protein Total Protein Albumin Prealbumin Triglycerides Cholesterol LDL Cholesterol Direct HDL Cholesterol Urine pH Urine WBC (Auto) Urine Creatinine Urine Total Protein Fluid Total Protein Vancomycin Trough Rheumatoid Factor Complement C4 Miscellaneous Test Crossmatch 10/26/16 10/26/16 10/26/16 12:12 17:29 23:42 WBC RBC Hgb Hct MCV MCH MCHC RDW Plt Count Lymph % (Auto) [place] % (Auto) Lymph # [place] # Baso # Seg Neutrophils % Seg Neuts % (Manual) Lymphocytes % (Manual) Monocytes % (Manual) Eosinophils % (Manual) Basophils % (Manual) Nucleated RBC % Seg Neutrophils # Seg Neutrophils # Man Lymphocytes # (Manual) Monocytes # (Manual) Eosinophils # (Manual) PT INR Fibrinogen dRVVT Confirm Interp Factor V Activity POC ABG pH POC ABG pCO2 POC ABG pO2 ABG pO2 ABG HCO3 ABG Base Excess ABG Hemoglobin Oxyhemoglobin Sodium Potassium Chloride Carbon Dioxide BUN Creatinine Glucose POC Glucose 126 H 161 H 118 H Lactic Acid Calcium Phosphorus Magnesium Direct Bilirubin AST ALT Alkaline Phosphatase Lactate Dehydrogenase Troponin T C-Reactive Protein Total Protein Albumin Prealbumin Triglycerides Cholesterol LDL Cholesterol Direct HDL Cholesterol Urine pH Urine WBC (Auto) Urine Creatinine Urine Total Protein Fluid Total Protein Vancomycin Trough Rheumatoid Factor Complement C4 Miscellaneous Test Crossmatch 10/27/16 10/27/16 10/27/16 05:03 06:30 06:30 WBC 13.9 H RBC 3.09 L Hgb 9.2 L Hct 27.5 L MCV MCH MCHC RDW 17.0 H Plt Count Lymph % (Auto) [place] % (Auto) Lymph # [place] # Baso # Seg Neutrophils % Seg Neuts % (Manual) 78.0 H Lymphocytes % (Manual) Monocytes % (Manual) Eosinophils % (Manual) Basophils % (Manual) Nucleated RBC % 2.0 H Seg Neutrophils # Seg Neutrophils # Man 10.8 H Lymphocytes # (Manual) Monocytes # (Manual) 1.0 H Eosinophils # (Manual) PT INR Fibrinogen dRVVT Confirm Interp Factor V Activity POC ABG pH POC ABG pCO2 POC ABG pO2 ABG pO2 ABG HCO3 ABG Base Excess ABG Hemoglobin Oxyhemoglobin Sodium Potassium Chloride Carbon Dioxide BUN 40 H Creatinine 1.5 H Glucose 135 H POC Glucose 107 H Lactic Acid Calcium 8.3 L Phosphorus 1.30 L D Magnesium Direct Bilirubin AST ALT Alkaline Phosphatase Lactate Dehydrogenase Troponin T C-Reactive Protein Total Protein Albumin Prealbumin Triglycerides Cholesterol LDL Cholesterol Direct HDL Cholesterol Urine pH Urine WBC (Auto) Urine Creatinine Urine Total Protein Fluid Total Protein Vancomycin Trough Rheumatoid Factor Complement C4 Miscellaneous Test Crossmatch 10/27/16 10/27/16 10/27/16 13:27 18:07 23:40 WBC RBC Hgb Hct MCV MCH MCHC RDW Plt Count Lymph % (Auto) [place] % (Auto) Lymph # [place] # Baso # Seg Neutrophils % Seg Neuts % (Manual) Lymphocytes % (Manual) Monocytes % (Manual) Eosinophils % (Manual) Basophils % (Manual) Nucleated RBC % Seg Neutrophils # Seg Neutrophils # Man Lymphocytes # (Manual) Monocytes # (Manual) Eosinophils # (Manual) PT INR Fibrinogen dRVVT Confirm Interp Factor V Activity POC ABG pH POC ABG pCO2 POC ABG pO2 ABG pO2 ABG HCO3 ABG Base Excess ABG Hemoglobin Oxyhemoglobin Sodium Potassium Chloride Carbon Dioxide BUN Creatinine Glucose POC Glucose 117 H 121 H 118 H Lactic Acid Calcium Phosphorus Magnesium Direct Bilirubin AST ALT Alkaline Phosphatase Lactate Dehydrogenase Troponin T C-Reactive Protein Total Protein Albumin Prealbumin Triglycerides Cholesterol LDL Cholesterol Direct HDL Cholesterol Urine pH Urine WBC (Auto) Urine Creatinine Urine Total Protein Fluid Total Protein Vancomycin Trough Rheumatoid Factor Complement C4 Miscellaneous Test Crossmatch 10/28/16 10/28/16 10/28/16 05:48 06:45 06:45 WBC 14.7 H RBC 3.05 L Hgb 9.0 L Hct 26.9 L MCV MCH MCHC RDW 16.8 H Plt Count Lymph % (Auto) 8.2 L [place] % (Auto) 8.4 H Lymph # [place] # 1.2 H Baso # Seg Neutrophils % 81.9 H Seg Neuts % (Manual) Lymphocytes % (Manual) Monocytes % (Manual) Eosinophils % (Manual) Basophils % (Manual) Nucleated RBC % Seg Neutrophils # 12.1 H Seg Neutrophils # Man Lymphocytes # (Manual) Monocytes # (Manual) Eosinophils # (Manual) PT INR Fibrinogen dRVVT Confirm Interp Factor V Activity POC ABG pH POC ABG pCO2 POC ABG pO2 ABG pO2 ABG HCO3 ABG Base Excess ABG Hemoglobin Oxyhemoglobin Sodium Potassium Chloride Carbon Dioxide BUN 60 H Creatinine 1.9 H Glucose 120 H POC Glucose 114 H Lactic Acid Calcium Phosphorus Magnesium Direct Bilirubin AST ALT Alkaline Phosphatase Lactate Dehydrogenase Troponin T C-Reactive Protein Total Protein Albumin Prealbumin Triglycerides Cholesterol LDL Cholesterol Direct HDL Cholesterol Urine pH Urine WBC (Auto) Urine Creatinine Urine Total Protein Fluid Total Protein Vancomycin Trough Rheumatoid Factor Complement C4 Miscellaneous Test Crossmatch 10/28/16 10/28/16 10/29/16 17:08 23:50 05:10 WBC RBC Hgb Hct MCV MCH MCHC RDW Plt Count Lymph % (Auto) [place] % (Auto) Lymph # [place] # Baso # Seg Neutrophils % Seg Neuts % (Manual) Lymphocytes % (Manual) Monocytes % (Manual) Eosinophils % (Manual) Basophils % (Manual) Nucleated RBC % Seg Neutrophils # Seg Neutrophils # Man Lymphocytes # (Manual) Monocytes # (Manual) Eosinophils # (Manual) PT INR Fibrinogen dRVVT Confirm Interp Factor V Activity POC ABG pH POC ABG pCO2 POC ABG pO2 ABG pO2 ABG HCO3 ABG Base Excess ABG Hemoglobin Oxyhemoglobin Sodium Potassium Chloride Carbon Dioxide BUN Creatinine Glucose POC Glucose 109 H 110 H 124 H Lactic Acid Calcium Phosphorus Magnesium Direct Bilirubin AST ALT Alkaline Phosphatase Lactate Dehydrogenase Troponin T C-Reactive Protein Total Protein Albumin Prealbumin Triglycerides Cholesterol LDL Cholesterol Direct HDL Cholesterol Urine pH Urine WBC (Auto) Urine Creatinine Urine Total Protein Fluid Total Protein Vancomycin Trough Rheumatoid Factor Complement C4 Miscellaneous Test Crossmatch 10/29/16 10/29/16 10/29/16 07:45 07:45 12:19 WBC 14.7 H RBC 3.15 L Hgb 9.3 L Hct 28.9 L MCV MCH MCHC RDW 17.0 H Plt Count Lymph % (Auto) 11.9 L [place] % (Auto) 8.6 H Lymph # [place] # 1.3 H Baso # Seg Neutrophils % 78.1 H Seg Neuts % (Manual) Lymphocytes % (Manual) Monocytes % (Manual) Eosinophils % (Manual) Basophils % (Manual) Nucleated RBC % Seg Neutrophils # 11.4 H Seg Neutrophils # Man Lymphocytes # (Manual) Monocytes # (Manual) Eosinophils # (Manual) PT INR Fibrinogen dRVVT Confirm Interp Factor V Activity POC ABG pH POC ABG pCO2 POC ABG pO2 ABG pO2 ABG HCO3 ABG Base Excess ABG Hemoglobin Oxyhemoglobin Sodium Potassium 5.1 H Chloride Carbon Dioxide 19 L BUN 78 H Creatinine 2.2 H Glucose 116 H POC Glucose 118 H Lactic Acid Calcium Phosphorus Magnesium Direct Bilirubin AST ALT Alkaline Phosphatase Lactate Dehydrogenase Troponin T C-Reactive Protein Total Protein Albumin Prealbumin Triglycerides Cholesterol LDL Cholesterol Direct HDL Cholesterol Urine pH Urine WBC (Auto) Urine Creatinine Urine Total Protein Fluid Total Protein Vancomycin Trough Rheumatoid Factor Complement C4 Miscellaneous Test Crossmatch 10/29/16 10/30/16 10/30/16 17:49 01:52 03:28 WBC RBC Hgb Hct MCV MCH MCHC RDW Plt Count Lymph % (Auto) [place] % (Auto) Lymph # [place] # Baso # Seg Neutrophils % Seg Neuts % (Manual) Lymphocytes % (Manual) Monocytes % (Manual) Eosinophils % (Manual) Basophils % (Manual) Nucleated RBC % Seg Neutrophils # Seg Neutrophils # Man Lymphocytes # (Manual) Monocytes # (Manual) Eosinophils # (Manual) PT INR Fibrinogen dRVVT Confirm Interp Factor V Activity POC ABG pH POC ABG pCO2 POC ABG pO2 ABG pO2 ABG HCO3 ABG Base Excess ABG Hemoglobin Oxyhemoglobin Sodium Potassium 5.4 H Chloride 97.5 L Carbon Dioxide 19 L BUN 90 H Creatinine 2.5 H Glucose POC Glucose 120 H 129 H Lactic Acid Calcium Phosphorus 5.20 H Magnesium Direct Bilirubin AST ALT Alkaline Phosphatase Lactate Dehydrogenase Troponin T C-Reactive Protein Total Protein Albumin Prealbumin Triglycerides Cholesterol LDL Cholesterol Direct HDL Cholesterol Urine pH Urine WBC (Auto) Urine Creatinine Urine Total Protein Fluid Total Protein Vancomycin Trough Rheumatoid Factor Complement C4 Miscellaneous Test Crossmatch 10/30/16 10/30/16 10/30/16 03:28 08:19 08:19 WBC 11.6 H 15.9 H RBC 2.75 L 2.82 L Hgb 7.9 L 8.3 L Hct 24.2 L 25.2 L MCV MCH MCHC RDW 16.7 H 17.2 H Plt Count Lymph % (Auto) [place] % (Auto) 9.8 H Lymph # [place] # 1.1 H Baso # Seg Neutrophils % 74.2 H Seg Neuts % (Manual) Lymphocytes % (Manual) Monocytes % (Manual) Eosinophils % (Manual) Basophils % (Manual) Nucleated RBC % Seg Neutrophils # 8.6 H Seg Neutrophils # Man Lymphocytes # (Manual) Monocytes # (Manual) Eosinophils # (Manual) PT INR Fibrinogen dRVVT Confirm Interp Factor V Activity POC ABG pH POC ABG pCO2 POC ABG pO2 ABG pO2 ABG HCO3 ABG Base Excess ABG Hemoglobin Oxyhemoglobin Sodium Potassium 5.3 H Chloride 97.4 L Carbon Dioxide 19 L BUN 93 H Creatinine 2.6 H Glucose POC Glucose Lactic Acid Calcium Phosphorus Magnesium Direct Bilirubin AST ALT Alkaline Phosphatase Lactate Dehydrogenase Troponin T C-Reactive Protein Total Protein Albumin Prealbumin Triglycerides Cholesterol LDL Cholesterol Direct HDL Cholesterol Urine pH Urine WBC (Auto) Urine Creatinine Urine Total Protein Fluid Total Protein Vancomycin Trough Rheumatoid Factor Complement C4 Miscellaneous Test Crossmatch 10/30/16 10/30/16 10/31/16 17:11 23:56 00:40 WBC RBC Hgb Hct MCV MCH MCHC RDW Plt Count Lymph % (Auto) [place] % (Auto) Lymph # [place] # Baso # Seg Neutrophils % Seg Neuts % (Manual) Lymphocytes % (Manual) Monocytes % (Manual) Eosinophils % (Manual) Basophils % (Manual) Nucleated RBC % Seg Neutrophils # Seg Neutrophils # Man Lymphocytes # (Manual) Monocytes # (Manual) Eosinophils # (Manual) PT INR Fibrinogen dRVVT Confirm Interp Factor V Activity POC ABG pH POC ABG pCO2 POC ABG pO2 ABG pO2 ABG HCO3 ABG Base Excess ABG Hemoglobin Oxyhemoglobin Sodium Potassium Chloride Carbon Dioxide BUN Creatinine Glucose POC Glucose 106 H 117 H 120 H Lactic Acid Calcium Phosphorus Magnesium Direct Bilirubin AST ALT Alkaline Phosphatase Lactate Dehydrogenase Troponin T C-Reactive Protein Total Protein Albumin Prealbumin Triglycerides Cholesterol LDL Cholesterol Direct HDL Cholesterol Urine pH Urine WBC (Auto) Urine Creatinine Urine Total Protein Fluid Total Protein Vancomycin Trough Rheumatoid Factor Complement C4 Miscellaneous Test Crossmatch 10/31/16 10/31/16 10/31/16 05:43 07:15 07:15 WBC 12.1 H RBC 2.63 L Hgb 7.7 L Hct 23.3 L MCV MCH MCHC RDW 16.7 H Plt Count Lymph % (Auto) 11.7 L [place] % (Auto) 7.7 H Lymph # [place] # 0.9 H Baso # Seg Neutrophils % 78.0 H Seg Neuts % (Manual) Lymphocytes % (Manual) Monocytes % (Manual) Eosinophils % (Manual) Basophils % (Manual) Nucleated RBC % Seg Neutrophils # 9.4 H Seg Neutrophils # Man Lymphocytes # (Manual) Monocytes # (Manual) Eosinophils # (Manual) PT INR Fibrinogen dRVVT Confirm Interp Factor V Activity POC ABG pH POC ABG pCO2 POC ABG pO2 ABG pO2 ABG HCO3 ABG Base Excess ABG Hemoglobin Oxyhemoglobin Sodium Potassium Chloride 96.4 L Carbon Dioxide 21 L BUN 99 H Creatinine 2.6 H Glucose 144 H POC Glucose 125 H Lactic Acid Calcium Phosphorus 4.80 H Magnesium Direct Bilirubin AST ALT Alkaline Phosphatase Lactate Dehydrogenase Troponin T C-Reactive Protein Total Protein Albumin Prealbumin Triglycerides Cholesterol LDL Cholesterol Direct HDL Cholesterol Urine pH Urine WBC (Auto) Urine Creatinine Urine Total Protein Fluid Total Protein Vancomycin Trough Rheumatoid Factor Complement C4 Miscellaneous Test Crossmatch 10/31/16 10/31/16 11/01/16 11:46 18:34 00:20 WBC RBC Hgb Hct MCV MCH MCHC RDW Plt Count Lymph % (Auto) [place] % (Auto) Lymph # [place] # Baso # Seg Neutrophils % Seg Neuts % (Manual) Lymphocytes % (Manual) Monocytes % (Manual) Eosinophils % (Manual) Basophils % (Manual) Nucleated RBC % Seg Neutrophils # Seg Neutrophils # Man Lymphocytes # (Manual) Monocytes # (Manual) Eosinophils # (Manual) PT INR Fibrinogen dRVVT Confirm Interp Factor V Activity POC ABG pH POC ABG pCO2 POC ABG pO2 ABG pO2 ABG HCO3 ABG Base Excess ABG Hemoglobin Oxyhemoglobin Sodium Potassium Chloride Carbon Dioxide BUN Creatinine Glucose POC Glucose 159 H 140 H 132 H Lactic Acid Calcium Phosphorus Magnesium Direct Bilirubin AST ALT Alkaline Phosphatase Lactate Dehydrogenase Troponin T C-Reactive Protein Total Protein Albumin Prealbumin Triglycerides Cholesterol LDL Cholesterol Direct HDL Cholesterol Urine pH Urine WBC (Auto) Urine Creatinine Urine Total Protein Fluid Total Protein Vancomycin Trough Rheumatoid Factor Complement C4 Miscellaneous Test Crossmatch 11/01/16 11/01/1617 04:55 04:55 06:11 WBC 11.2 H RBC 2.68 L Hgb 7.5 L Hct 23.7 L MCV MCH MCHC RDW 16.1 H Plt Count Lymph % (Auto) [place] % (Auto) 9.8 H Lymph # [place] # 1.1 H Baso # Seg Neutrophils % 70.8 H Seg Neuts % (Manual) Lymphocytes % (Manual) Monocytes % (Manual) Eosinophils % (Manual) Basophils % (Manual) Nucleated RBC % Seg Neutrophils # 7.9 H Seg Neutrophils # Man Lymphocytes # (Manual) Monocytes # (Manual) Eosinophils # (Manual) PT INR Fibrinogen dRVVT Confirm Interp Factor V Activity POC ABG pH POC ABG pCO2 POC ABG pO2 ABG pO2 ABG HCO3 ABG Base Excess ABG Hemoglobin Oxyhemoglobin Sodium Potassium 3.3 L D Chloride Carbon Dioxide BUN 61 H Creatinine 1.9 H Glucose 114 H POC Glucose 115 H Lactic Acid Calcium Phosphorus 1.80 L D Magnesium Direct Bilirubin AST ALT Alkaline Phosphatase Lactate Dehydrogenase Troponin T C-Reactive Protein Total Protein Albumin Prealbumin Triglycerides Cholesterol LDL Cholesterol Direct HDL Cholesterol Urine pH Urine WBC (Auto) Urine Creatinine Urine Total Protein Fluid Total Protein Vancomycin Trough Rheumatoid Factor Complement C4 Miscellaneous Test Crossmatch 11/01/16 11/01/16 11/01/16 12:29 18:23 23:58 WBC RBC Hgb Hct MCV MCH MCHC RDW Plt Count Lymph % (Auto) [place] % (Auto) Lymph # [place] # Baso # Seg Neutrophils % Seg Neuts % (Manual) Lymphocytes % (Manual) Monocytes % (Manual) Eosinophils % (Manual) Basophils % (Manual) Nucleated RBC % Seg Neutrophils # Seg Neutrophils # Man Lymphocytes # (Manual) Monocytes # (Manual) Eosinophils # (Manual) PT INR Fibrinogen dRVVT Confirm Interp Factor V Activity POC ABG pH POC ABG pCO2 POC ABG pO2 ABG pO2 ABG HCO3 ABG Base Excess ABG Hemoglobin Oxyhemoglobin Sodium Potassium Chloride Carbon Dioxide BUN Creatinine Glucose POC Glucose 142 H 143 H 128 H Lactic Acid Calcium Phosphorus Magnesium Direct Bilirubin AST ALT Alkaline Phosphatase Lactate Dehydrogenase Troponin T C-Reactive Protein Total Protein Albumin Prealbumin Triglycerides Cholesterol LDL Cholesterol Direct HDL Cholesterol Urine pH Urine WBC (Auto) Urine Creatinine Urine Total Protein Fluid Total Protein Vancomycin Trough Rheumatoid Factor Complement C4 Miscellaneous Test Crossmatch 11/02/16 11/02/16 11/02/16 04:16 05:29 11:58 WBC RBC Hgb Hct MCV MCH MCHC RDW Plt Count Lymph % (Auto) [place] % (Auto) Lymph # [place] # Baso # Seg Neutrophils % Seg Neuts % (Manual) Lymphocytes % (Manual) Monocytes % (Manual) Eosinophils % (Manual) Basophils % (Manual) Nucleated RBC % Seg Neutrophils # Seg Neutrophils # Man Lymphocytes # (Manual) Monocytes # (Manual) Eosinophils # (Manual) PT INR Fibrinogen dRVVT Confirm Interp Factor V Activity POC ABG pH POC ABG pCO2 POC ABG pO2 ABG pO2 ABG HCO3 ABG Base Excess ABG Hemoglobin Oxyhemoglobin Sodium Potassium 3.1 L Chloride Carbon Dioxide BUN 73 H Creatinine 2.3 H Glucose 112 H POC Glucose 135 H 149 H Lactic Acid Calcium Phosphorus Magnesium Direct Bilirubin AST ALT Alkaline Phosphatase Lactate Dehydrogenase Troponin T C-Reactive Protein Total Protein Albumin Prealbumin Triglycerides Cholesterol LDL Cholesterol Direct HDL Cholesterol Urine pH Urine WBC (Auto) Urine Creatinine Urine Total Protein Fluid Total Protein Vancomycin Trough Rheumatoid Factor Complement C4 Miscellaneous Test Crossmatch 11/02/16 11/02/16 11/03/16 17:42 22:54 06:00 WBC RBC Hgb Hct MCV MCH MCHC RDW Plt Count Lymph % (Auto) [place] % (Auto) Lymph # [place] # Baso # Seg Neutrophils % Seg Neuts % (Manual) Lymphocytes % (Manual) Monocytes % (Manual) Eosinophils % (Manual) Basophils % (Manual) Nucleated RBC % Seg Neutrophils # Seg Neutrophils # Man Lymphocytes # (Manual) Monocytes # (Manual) Eosinophils # (Manual) PT INR Fibrinogen dRVVT Confirm Interp Factor V Activity POC ABG pH POC ABG pCO2 POC ABG pO2 ABG pO2 ABG HCO3 ABG Base Excess ABG Hemoglobin Oxyhemoglobin Sodium Potassium Chloride 96.7 L Carbon Dioxide BUN 41 H Creatinine 1.5 H Glucose 145 H POC Glucose 182 H 115 H Lactic Acid Calcium Phosphorus 1.60 L D Magnesium 1.50 L Direct Bilirubin AST ALT Alkaline Phosphatase Lactate Dehydrogenase Troponin T C-Reactive Protein Total Protein Albumin Prealbumin Triglycerides Cholesterol LDL Cholesterol Direct HDL Cholesterol Urine pH Urine WBC (Auto) Urine Creatinine Urine Total Protein Fluid Total Protein Vancomycin Trough Rheumatoid Factor Complement C4 Miscellaneous Test Crossmatch 11/03/16 11/03/16 11/03/16 11:53 17:45 23:37 WBC RBC Hgb Hct MCV MCH MCHC RDW Plt Count Lymph % (Auto) [place] % (Auto) Lymph # [place] # Baso # Seg Neutrophils % Seg Neuts % (Manual) Lymphocytes % (Manual) Monocytes % (Manual) Eosinophils % (Manual) Basophils % (Manual) Nucleated RBC % Seg Neutrophils # Seg Neutrophils # Man Lymphocytes # (Manual) Monocytes # (Manual) Eosinophils # (Manual) PT INR Fibrinogen dRVVT Confirm Interp Factor V Activity POC ABG pH POC ABG pCO2 POC ABG pO2 ABG pO2 ABG HCO3 ABG Base Excess ABG Hemoglobin Oxyhemoglobin Sodium Potassium Chloride Carbon Dioxide BUN Creatinine Glucose POC Glucose 131 H 134 H 113 H Lactic Acid Calcium Phosphorus Magnesium Direct Bilirubin AST ALT Alkaline Phosphatase Lactate Dehydrogenase Troponin T C-Reactive Protein Total Protein Albumin Prealbumin Triglycerides Cholesterol LDL Cholesterol Direct HDL Cholesterol Urine pH Urine WBC (Auto) Urine Creatinine Urine Total Protein Fluid Total Protein Vancomycin Trough Rheumatoid Factor Complement C4 Miscellaneous Test Crossmatch 11/04/16 11/04/16 11/04/16 05:41 06:00 12:10 WBC RBC Hgb Hct MCV MCH MCHC RDW Plt Count Lymph % (Auto) [place] % (Auto) Lymph # [place] # Baso # Seg Neutrophils % Seg Neuts % (Manual) Lymphocytes % (Manual) Monocytes % (Manual) Eosinophils % (Manual) Basophils % (Manual) Nucleated RBC % Seg Neutrophils # Seg Neutrophils # Man Lymphocytes # (Manual) Monocytes # (Manual) Eosinophils # (Manual) PT INR Fibrinogen dRVVT Confirm Interp Factor V Activity POC ABG pH POC ABG pCO2 POC ABG pO2 ABG pO2 ABG HCO3 ABG Base Excess ABG Hemoglobin Oxyhemoglobin Sodium Potassium Chloride 96.7 L Carbon Dioxide BUN 52 H Creatinine 1.9 H Glucose 126 H POC Glucose 137 H 191 H Lactic Acid Calcium Phosphorus Magnesium Direct Bilirubin AST ALT Alkaline Phosphatase Lactate Dehydrogenase Troponin T C-Reactive Protein Total Protein Albumin Prealbumin Triglycerides Cholesterol LDL Cholesterol Direct HDL Cholesterol Urine pH Urine WBC (Auto) Urine Creatinine Urine Total Protein Fluid Total Protein Vancomycin Trough Rheumatoid Factor Complement C4 Miscellaneous Test Crossmatch 11/04/16 11/05/16 11/05/16 22:57 03:10 05:10 WBC RBC Hgb Hct MCV MCH MCHC RDW Plt Count Lymph % (Auto) [place] % (Auto) Lymph # [place] # Baso # Seg Neutrophils % Seg Neuts % (Manual) Lymphocytes % (Manual) Monocytes % (Manual) Eosinophils % (Manual) Basophils % (Manual) Nucleated RBC % Seg Neutrophils # Seg Neutrophils # Man Lymphocytes # (Manual) Monocytes # (Manual) Eosinophils # (Manual) PT INR Fibrinogen dRVVT Confirm Interp Factor V Activity POC ABG pH POC ABG pCO2 POC ABG pO2 ABG pO2 ABG HCO3 ABG Base Excess ABG Hemoglobin Oxyhemoglobin Sodium 136 L Potassium Chloride 97.2 L Carbon Dioxide BUN 32 H Creatinine 1.3 H Glucose 123 H POC Glucose 125 H 108 H Lactic Acid Calcium 7.8 L Phosphorus Magnesium Direct Bilirubin AST ALT Alkaline Phosphatase Lactate Dehydrogenase Troponin T C-Reactive Protein Total Protein Albumin Prealbumin Triglycerides Cholesterol LDL Cholesterol Direct HDL Cholesterol Urine pH Urine WBC (Auto) Urine Creatinine Urine Total Protein Fluid Total Protein Vancomycin Trough Rheumatoid Factor Complement C4 Miscellaneous Test Crossmatch 11/05/16 11/05/16 11/05/16 12:23 13:09 13:25 WBC RBC Hgb Hct MCV MCH MCHC RDW Plt Count Lymph % (Auto) [place] % (Auto) Lymph # [place] # Baso # Seg Neutrophils % Seg Neuts % (Manual) Lymphocytes % (Manual) Monocytes % (Manual) Eosinophils % (Manual) Basophils % (Manual) Nucleated RBC % Seg Neutrophils # Seg Neutrophils # Man Lymphocytes # (Manual) Monocytes # (Manual) Eosinophils # (Manual) PT INR Fibrinogen dRVVT Confirm Interp Factor V Activity POC ABG pH POC ABG pCO2 POC ABG pO2 ABG pO2 ABG HCO3 ABG Base Excess ABG Hemoglobin Oxyhemoglobin Sodium Potassium Chloride Carbon Dioxide BUN Creatinine Glucose POC Glucose 124 H Lactic Acid Calcium Phosphorus Magnesium Direct Bilirubin AST ALT Alkaline Phosphatase Lactate Dehydrogenase Troponin T C-Reactive Protein 11.40 H Total Protein Albumin Prealbumin Triglycerides Cholesterol LDL Cholesterol Direct HDL Cholesterol Urine pH 9.0 H Urine WBC (Auto) Urine Creatinine Urine Total Protein Fluid Total Protein Vancomycin Trough Rheumatoid Factor Complement C4 Miscellaneous Test Crossmatch 11/05/16 11/05/16 11/05/16 13:25 17:54 23:42 WBC RBC Hgb Hct MCV MCH MCHC RDW Plt Count Lymph % (Auto) [place] % (Auto) Lymph # [place] # Baso # Seg Neutrophils % Seg Neuts % (Manual) Lymphocytes % (Manual) Monocytes % (Manual) Eosinophils % (Manual) Basophils % (Manual) Nucleated RBC % Seg Neutrophils # Seg Neutrophils # Man Lymphocytes # (Manual) Monocytes # (Manual) Eosinophils # (Manual) PT INR Fibrinogen dRVVT Confirm Interp Factor V Activity POC ABG pH POC ABG pCO2 POC ABG pO2 ABG pO2 ABG HCO3 ABG Base Excess ABG Hemoglobin Oxyhemoglobin Sodium Potassium Chloride Carbon Dioxide BUN Creatinine Glucose POC Glucose 114 H 134 H Lactic Acid Calcium Phosphorus Magnesium Direct Bilirubin AST ALT Alkaline Phosphatase Lactate Dehydrogenase Troponin T C-Reactive Protein Total Protein Albumin Prealbumin Triglycerides Cholesterol LDL Cholesterol Direct HDL Cholesterol Urine pH Urine WBC (Auto) Urine Creatinine Urine Total Protein Fluid Total Protein Vancomycin Trough Rheumatoid Factor Complement C4 Miscellaneous Test Flexitest 1 H Crossmatch 11/06/16 11/06/16 11/06/16 04:56 06:25 06:25 WBC RBC 2.50 L Hgb 7.3 L Hct 22.5 L MCV MCH MCHC RDW 16.9 H Plt Count Lymph % (Auto) [place] % (Auto) 10.5 H Lymph # [place] # 1.1 H Baso # Seg Neutrophils % Seg Neuts % (Manual) Lymphocytes % (Manual) Monocytes % (Manual) Eosinophils % (Manual) Basophils % (Manual) Nucleated RBC % Seg Neutrophils # Seg Neutrophils # Man Lymphocytes # (Manual) Monocytes # (Manual) Eosinophils # (Manual) PT INR Fibrinogen dRVVT Confirm Interp Factor V Activity POC ABG pH POC ABG pCO2 POC ABG pO2 ABG pO2 ABG HCO3 ABG Base Excess ABG Hemoglobin Oxyhemoglobin Sodium Potassium 5.1 H Chloride 95.9 L Carbon Dioxide BUN 52 H Creatinine 1.8 H Glucose 117 H POC Glucose 120 H Lactic Acid Calcium Phosphorus Magnesium Direct Bilirubin AST 103 H ALT 77 H Alkaline Phosphatase 285 H Lactate Dehydrogenase Troponin T C-Reactive Protein Total Protein 6.2 L Albumin 1.8 L Prealbumin 0.180 L Triglycerides Cholesterol LDL Cholesterol Direct HDL Cholesterol Urine pH Urine WBC (Auto) Urine Creatinine Urine Total Protein Fluid Total Protein Vancomycin Trough Rheumatoid Factor Complement C4 Miscellaneous Test Crossmatch 11/06/16 11/06/16 11/06/16 11:56 17:14 23:52 WBC RBC Hgb Hct MCV MCH MCHC RDW Plt Count Lymph % (Auto) [place] % (Auto) Lymph # [place] # Baso # Seg Neutrophils % Seg Neuts % (Manual) Lymphocytes % (Manual) Monocytes % (Manual) Eosinophils % (Manual) Basophils % (Manual) Nucleated RBC % Seg Neutrophils # Seg Neutrophils # Man Lymphocytes # (Manual) Monocytes # (Manual) Eosinophils # (Manual) PT INR Fibrinogen dRVVT Confirm Interp Factor V Activity POC ABG pH POC ABG pCO2 POC ABG pO2 ABG pO2 ABG HCO3 ABG Base Excess ABG Hemoglobin Oxyhemoglobin Sodium Potassium Chloride Carbon Dioxide BUN Creatinine Glucose POC Glucose 141 H 125 H 130 H Lactic Acid Calcium Phosphorus Magnesium Direct Bilirubin AST ALT Alkaline Phosphatase Lactate Dehydrogenase Troponin T C-Reactive Protein Total Protein Albumin Prealbumin Triglycerides Cholesterol LDL Cholesterol Direct HDL Cholesterol Urine pH Urine WBC (Auto) Urine Creatinine Urine Total Protein Fluid Total Protein Vancomycin Trough Rheumatoid Factor Complement C4 Miscellaneous Test Crossmatch 11/07/16 11/07/16 11/07/16 06:30 06:30 09:37 WBC RBC 2.18 L Hgb 6.3 L Hct 19.7 L* MCV MCH MCHC RDW 16.8 H Plt Count Lymph % (Auto) [place] % (Auto) 10.0 H Lymph # [place] # 1.0 H Baso # Seg Neutrophils % Seg Neuts % (Manual) Lymphocytes % (Manual) Monocytes % (Manual) Eosinophils % (Manual) Basophils % (Manual) Nucleated RBC % Seg Neutrophils # Seg Neutrophils # Man Lymphocytes # (Manual) Monocytes # (Manual) Eosinophils # (Manual) PT INR Fibrinogen dRVVT Confirm Interp Factor V Activity POC ABG pH POC ABG pCO2 POC ABG pO2 ABG pO2 ABG HCO3 ABG Base Excess ABG Hemoglobin Oxyhemoglobin Sodium 135 L Potassium Chloride 95.6 L Carbon Dioxide BUN 70 H Creatinine 2.0 H Glucose 126 H POC Glucose Lactic Acid Calcium Phosphorus Magnesium Direct Bilirubin AST ALT Alkaline Phosphatase Lactate Dehydrogenase Troponin T C-Reactive Protein Total Protein Albumin Prealbumin Triglycerides Cholesterol LDL Cholesterol Direct HDL Cholesterol Urine pH Urine WBC (Auto) Urine Creatinine Urine Total Protein Fluid Total Protein Vancomycin Trough Rheumatoid Factor Complement C4 Miscellaneous Test Crossmatch See Detail 11/07/16 11/07/16 11/07/16 12:52 18:51 21:26 WBC RBC Hgb Hct MCV MCH MCHC RDW Plt Count Lymph % (Auto) [place] % (Auto) Lymph # [place] # Baso # Seg Neutrophils % Seg Neuts % (Manual) Lymphocytes % (Manual) Monocytes % (Manual) Eosinophils % (Manual) Basophils % (Manual) Nucleated RBC % Seg Neutrophils # Seg Neutrophils # Man Lymphocytes # (Manual) Monocytes # (Manual) Eosinophils # (Manual) PT INR Fibrinogen dRVVT Confirm Interp Factor V Activity POC ABG pH 7.523 H POC ABG pCO2 34.6 L POC ABG pO2 53 L ABG pO2 ABG HCO3 ABG Base Excess ABG Hemoglobin Oxyhemoglobin Sodium Potassium Chloride Carbon Dioxide BUN Creatinine Glucose POC Glucose 142 H 155 H Lactic Acid Calcium Phosphorus Magnesium Direct Bilirubin AST ALT Alkaline Phosphatase Lactate Dehydrogenase Troponin T C-Reactive Protein Total Protein Albumin Prealbumin Triglycerides Cholesterol LDL Cholesterol Direct HDL Cholesterol Urine pH Urine WBC (Auto) Urine Creatinine Urine Total Protein Fluid Total Protein Vancomycin Trough Rheumatoid Factor Complement C4 Miscellaneous Test Crossmatch 11/07/16 11/08/16 11/08/16 21:34 13:03 23:37 WBC RBC 2.63 L Hgb 7.7 L Hct 22.7 L MCV MCH MCHC RDW 17.0 H Plt Count Lymph % (Auto) [place] % (Auto) Lymph # [place] # Baso # Seg Neutrophils % Seg Neuts % (Manual) Lymphocytes % (Manual) Monocytes % (Manual) Eosinophils % (Manual) Basophils % (Manual) Nucleated RBC % Seg Neutrophils # Seg Neutrophils # Man Lymphocytes # (Manual) Monocytes # (Manual) Eosinophils # (Manual) PT INR Fibrinogen dRVVT Confirm Interp Factor V Activity POC ABG pH 7.478 H POC ABG pCO2 34.0 L POC ABG pO2 50 L ABG pO2 ABG HCO3 ABG Base Excess ABG Hemoglobin Oxyhemoglobin Sodium Potassium Chloride Carbon Dioxide BUN Creatinine Glucose POC Glucose 113 H Lactic Acid Calcium Phosphorus Magnesium Direct Bilirubin AST ALT Alkaline Phosphatase Lactate Dehydrogenase Troponin T C-Reactive Protein Total Protein Albumin Prealbumin Triglycerides Cholesterol LDL Cholesterol Direct HDL Cholesterol Urine pH Urine WBC (Auto) Urine Creatinine Urine Total Protein Fluid Total Protein Vancomycin Trough Rheumatoid Factor Complement C4 Miscellaneous Test Crossmatch 11/09/16 11/09/16 11/09/16 04:35 10:15 18:21 WBC RBC 2.68 L Hgb 7.8 L Hct 23.3 L MCV MCH MCHC RDW 17.0 H Plt Count Lymph % (Auto) [place] % (Auto) 12.1 H Lymph # [place] # 1.1 H Baso # Seg Neutrophils % Seg Neuts % (Manual) Lymphocytes % (Manual) Monocytes % (Manual) Eosinophils % (Manual) Basophils % (Manual) Nucleated RBC % Seg Neutrophils # Seg Neutrophils # Man Lymphocytes # (Manual) Monocytes # (Manual) Eosinophils # (Manual) PT INR Fibrinogen dRVVT Confirm Interp Factor V Activity POC ABG pH POC ABG pCO2 POC ABG pO2 ABG pO2 ABG HCO3 ABG Base Excess ABG Hemoglobin Oxyhemoglobin Sodium Potassium Chloride Carbon Dioxide BUN 51 H Creatinine 1.8 H Glucose POC Glucose 60 L Lactic Acid Calcium 8.3 L Phosphorus Magnesium Direct Bilirubin AST ALT Alkaline Phosphatase Lactate Dehydrogenase Troponin T C-Reactive Protein Total Protein Albumin Prealbumin Triglycerides Cholesterol LDL Cholesterol Direct HDL Cholesterol Urine pH Urine WBC (Auto) Urine Creatinine Urine Total Protein Fluid Total Protein Vancomycin Trough Rheumatoid Factor Complement C4 Miscellaneous Test Crossmatch 11/09/16 11/10/16 11/10/16 18:55 07:00 11:51 WBC RBC Hgb Hct MCV MCH MCHC RDW Plt Count Lymph % (Auto) [place] % (Auto) Lymph # [place] # Baso # Seg Neutrophils % Seg Neuts % (Manual) Lymphocytes % (Manual) Monocytes % (Manual) Eosinophils % (Manual) Basophils % (Manual) Nucleated RBC % Seg Neutrophils # Seg Neutrophils # Man Lymphocytes # (Manual) Monocytes # (Manual) Eosinophils # (Manual) PT INR Fibrinogen dRVVT Confirm Interp Factor V Activity POC ABG pH POC ABG pCO2 POC ABG pO2 ABG pO2 ABG HCO3 ABG Base Excess ABG Hemoglobin Oxyhemoglobin Sodium Potassium 3.0 L D Chloride 97.4 L Carbon Dioxide BUN 28 H Creatinine 1.3 H Glucose POC Glucose 68 L 120 H Lactic Acid Calcium 7.8 L Phosphorus Magnesium Direct Bilirubin AST ALT Alkaline Phosphatase Lactate Dehydrogenase Troponin T C-Reactive Protein Total Protein Albumin Prealbumin Triglycerides Cholesterol LDL Cholesterol Direct HDL Cholesterol Urine pH Urine WBC (Auto) Urine Creatinine Urine Total Protein Fluid Total Protein Vancomycin Trough Rheumatoid Factor Complement C4 Miscellaneous Test Crossmatch 11/10/16 11/11/16 11/11/16 14:20 06:59 06:59 WBC RBC 2.81 L Hgb 8.1 L Hct 24.4 L MCV MCH MCHC RDW 16.4 H Plt Count Lymph % (Auto) [place] % (Auto) 10.8 H Lymph # [place] # 1.0 H Baso # Seg Neutrophils % Seg Neuts % (Manual) Lymphocytes % (Manual) Monocytes % (Manual) Eosinophils % (Manual) Basophils % (Manual) Nucleated RBC % Seg Neutrophils # Seg Neutrophils # Man Lymphocytes # (Manual) Monocytes # (Manual) Eosinophils # (Manual) PT INR Fibrinogen dRVVT Confirm Interp Factor V Activity POC ABG pH POC ABG pCO2 POC ABG pO2 ABG pO2 ABG HCO3 ABG Base Excess ABG Hemoglobin Oxyhemoglobin Sodium Potassium Chloride Carbon Dioxide BUN Creatinine Glucose POC Glucose Lactic Acid Calcium Phosphorus Magnesium Direct Bilirubin AST ALT Alkaline Phosphatase Lactate Dehydrogenase 196 H Troponin T C-Reactive Protein Total Protein 6.1 L Albumin Prealbumin Triglycerides Cholesterol LDL Cholesterol Direct HDL Cholesterol Urine pH Urine WBC (Auto) Urine Creatinine Urine Total Protein Fluid Total Protein < 3.0 L Vancomycin Trough Rheumatoid Factor Complement C4 Miscellaneous Test Crossmatch 11/11/16 11/11/16 11/12/16 06:59 09:50 04:00 WBC RBC Hgb Hct MCV MCH MCHC RDW Plt Count Lymph % (Auto) [place] % (Auto) Lymph # [place] # Baso # Seg Neutrophils % Seg Neuts % (Manual) Lymphocytes % (Manual) Monocytes % (Manual) Eosinophils % (Manual) Basophils % (Manual) Nucleated RBC % Seg Neutrophils # Seg Neutrophils # Man Lymphocytes # (Manual) Monocytes # (Manual) Eosinophils # (Manual) PT INR 1.18 H Fibrinogen dRVVT Confirm Interp Factor V Activity POC ABG pH POC ABG pCO2 POC ABG pO2 ABG pO2 ABG HCO3 ABG Base Excess ABG Hemoglobin Oxyhemoglobin Sodium 136 L 133 L Potassium Chloride 96.1 L 94.8 L Carbon Dioxide 21 L BUN 37 H 42 H Creatinine 1.8 H 2.0 H Glucose POC Glucose Lactic Acid Calcium Phosphorus Magnesium Direct Bilirubin AST ALT Alkaline Phosphatase Lactate Dehydrogenase Troponin T C-Reactive Protein Total Protein Albumin Prealbumin Triglycerides Cholesterol LDL Cholesterol Direct HDL Cholesterol Urine pH Urine WBC (Auto) Urine Creatinine Urine Total Protein Fluid Total Protein Vancomycin Trough Rheumatoid Factor Complement C4 Miscellaneous Test Crossmatch 11/12/16 11/12/16 11/13/16 04:00 23:55 05:53 WBC RBC Hgb 8.9 L Hct 27.2 L MCV MCH MCHC RDW Plt Count Lymph % (Auto) [place] % (Auto) Lymph # [place] # Baso # Seg Neutrophils % Seg Neuts % (Manual) Lymphocytes % (Manual) Monocytes % (Manual) Eosinophils % (Manual) Basophils % (Manual) Nucleated RBC % Seg Neutrophils # Seg Neutrophils # Man Lymphocytes # (Manual) Monocytes # (Manual) Eosinophils # (Manual) PT INR Fibrinogen dRVVT Confirm Interp Factor V Activity POC ABG pH POC ABG pCO2 POC ABG pO2 ABG pO2 ABG HCO3 ABG Base Excess ABG Hemoglobin Oxyhemoglobin Sodium Potassium Chloride Carbon Dioxide BUN Creatinine Glucose POC Glucose 132 H 120 H Lactic Acid Calcium Phosphorus Magnesium Direct Bilirubin AST ALT Alkaline Phosphatase Lactate Dehydrogenase Troponin T C-Reactive Protein Total Protein Albumin Prealbumin Triglycerides Cholesterol LDL Cholesterol Direct HDL Cholesterol Urine pH Urine WBC (Auto) Urine Creatinine Urine Total Protein Fluid Total Protein Vancomycin Trough Rheumatoid Factor Complement C4 Miscellaneous Test Crossmatch 11/13/16 11/13/16 11/13/16 11:43 17:09 23:41 WBC RBC Hgb Hct MCV MCH MCHC RDW Plt Count Lymph % (Auto) [place] % (Auto) Lymph # [place] # Baso # Seg Neutrophils % Seg Neuts % (Manual) Lymphocytes % (Manual) Monocytes % (Manual) Eosinophils % (Manual) Basophils % (Manual) Nucleated RBC % Seg Neutrophils # Seg Neutrophils # Man Lymphocytes # (Manual) Monocytes # (Manual) Eosinophils # (Manual) PT INR Fibrinogen dRVVT Confirm Interp Factor V Activity POC ABG pH POC ABG pCO2 POC ABG pO2 ABG pO2 ABG HCO3 ABG Base Excess ABG Hemoglobin Oxyhemoglobin Sodium Potassium Chloride Carbon Dioxide BUN Creatinine Glucose POC Glucose 114 H 113 H 108 H Lactic Acid Calcium Phosphorus Magnesium Direct Bilirubin AST ALT Alkaline Phosphatase Lactate Dehydrogenase Troponin T C-Reactive Protein Total Protein Albumin Prealbumin Triglycerides Cholesterol LDL Cholesterol Direct HDL Cholesterol Urine pH Urine WBC (Auto) Urine Creatinine Urine Total Protein Fluid Total Protein Vancomycin Trough Rheumatoid Factor Complement C4 Miscellaneous Test Crossmatch 11/13/16 11/15/16 11/15/16 Unknown 00:37 03:30 WBC 11.2 H RBC 2.72 L Hgb 7.6 L Hct 23.4 L MCV MCH MCHC RDW 16.5 H Plt Count Lymph % (Auto) [place] % (Auto) Lymph # [place] # Baso # Seg Neutrophils % Seg Neuts % (Manual) Lymphocytes % (Manual) Monocytes % (Manual) Eosinophils % (Manual) Basophils % (Manual) Nucleated RBC % Seg Neutrophils # Seg Neutrophils # Man Lymphocytes # (Manual) Monocytes # (Manual) Eosinophils # (Manual) PT INR Fibrinogen dRVVT Confirm Interp Factor V Activity POC ABG pH POC ABG pCO2 POC ABG pO2 ABG pO2 ABG HCO3 ABG Base Excess ABG Hemoglobin Oxyhemoglobin Sodium 135 L Potassium Chloride 95.2 L Carbon Dioxide BUN 52 H Creatinine 2.2 H Glucose POC Glucose 108 H Lactic Acid Calcium Phosphorus Magnesium Direct Bilirubin AST ALT Alkaline Phosphatase Lactate Dehydrogenase Troponin T C-Reactive Protein Total Protein Albumin Prealbumin Triglycerides Cholesterol LDL Cholesterol Direct HDL Cholesterol Urine pH Urine WBC (Auto) Urine Creatinine Urine Total Protein Fluid Total Protein Vancomycin Trough Rheumatoid Factor Complement C4 Miscellaneous Test Crossmatch 11/15/16 11/15/16 11/15/16 03:30 05:04 11:50 WBC RBC Hgb Hct MCV MCH MCHC RDW Plt Count Lymph % (Auto) [place] % (Auto) Lymph # [place] # Baso # Seg Neutrophils % Seg Neuts % (Manual) Lymphocytes % (Manual) Monocytes % (Manual) Eosinophils % (Manual) Basophils % (Manual) Nucleated RBC % Seg Neutrophils # Seg Neutrophils # Man Lymphocytes # (Manual) Monocytes # (Manual) Eosinophils # (Manual) PT INR Fibrinogen dRVVT Confirm Interp Factor V Activity POC ABG pH POC ABG pCO2 POC ABG pO2 ABG pO2 ABG HCO3 ABG Base Excess ABG Hemoglobin Oxyhemoglobin Sodium Potassium 3.4 L Chloride Carbon Dioxide BUN 25 H Creatinine 1.5 H Glucose 103 H POC Glucose 121 H 144 H Lactic Acid Calcium Phosphorus Magnesium Direct Bilirubin AST ALT Alkaline Phosphatase Lactate Dehydrogenase Troponin T C-Reactive Protein Total Protein Albumin Prealbumin Triglycerides Cholesterol LDL Cholesterol Direct HDL Cholesterol Urine pH Urine WBC (Auto) Urine Creatinine Urine Total Protein Fluid Total Protein Vancomycin Trough Rheumatoid Factor Complement C4 Miscellaneous Test Crossmatch 11/15/16 11/15/16 11/16/16 21:28 23:20 11:44 WBC RBC Hgb Hct MCV MCH MCHC RDW Plt Count Lymph % (Auto) [place] % (Auto) Lymph # [place] # Baso # Seg Neutrophils % Seg Neuts % (Manual) Lymphocytes % (Manual) Monocytes % (Manual) Eosinophils % (Manual) Basophils % (Manual) Nucleated RBC % Seg Neutrophils # Seg Neutrophils # Man Lymphocytes # (Manual) Monocytes # (Manual) Eosinophils # (Manual) PT INR Fibrinogen dRVVT Confirm Interp Factor V Activity POC ABG pH 7.462 H POC ABG pCO2 POC ABG pO2 71 L ABG pO2 ABG HCO3 ABG Base Excess ABG Hemoglobin Oxyhemoglobin Sodium Potassium Chloride Carbon Dioxide BUN Creatinine Glucose POC Glucose 116 H 133 H Lactic Acid Calcium Phosphorus Magnesium Direct Bilirubin AST ALT Alkaline Phosphatase Lactate Dehydrogenase Troponin T C-Reactive Protein Total Protein Albumin Prealbumin Triglycerides Cholesterol LDL Cholesterol Direct HDL Cholesterol Urine pH Urine WBC (Auto) Urine Creatinine Urine Total Protein Fluid Total Protein Vancomycin Trough Rheumatoid Factor Complement C4 Miscellaneous Test Crossmatch 11/16/16 11/16/16 11/16/16 12:20 17:05 23:35 WBC 11.7 H RBC 2.73 L Hgb 7.6 L Hct 23.7 L MCV MCH MCHC RDW 16.6 H Plt Count Lymph % (Auto) [place] % (Auto) Lymph # [place] # Baso # Seg Neutrophils % Seg Neuts % (Manual) Lymphocytes % (Manual) Monocytes % (Manual) Eosinophils % (Manual) Basophils % (Manual) Nucleated RBC % Seg Neutrophils # Seg Neutrophils # Man Lymphocytes # (Manual) Monocytes # (Manual) Eosinophils # (Manual) PT INR Fibrinogen dRVVT Confirm Interp Factor V Activity POC ABG pH POC ABG pCO2 POC ABG pO2 ABG pO2 ABG HCO3 ABG Base Excess ABG Hemoglobin Oxyhemoglobin Sodium Potassium Chloride Carbon Dioxide BUN Creatinine Glucose POC Glucose 154 H 125 H Lactic Acid Calcium Phosphorus Magnesium Direct Bilirubin AST ALT Alkaline Phosphatase Lactate Dehydrogenase Troponin T C-Reactive Protein Total Protein Albumin Prealbumin Triglycerides Cholesterol LDL Cholesterol Direct HDL Cholesterol Urine pH Urine WBC (Auto) Urine Creatinine Urine Total Protein Fluid Total Protein Vancomycin Trough Rheumatoid Factor Complement C4 Miscellaneous Test Crossmatch 11/17/16 11/17/16 11/17/16 03:20 03:20 03:20 WBC RBC 2.55 L Hgb 7.3 L Hct 21.9 L MCV MCH MCHC RDW 16.6 H Plt Count Lymph % (Auto) [place] % (Auto) 11.5 H Lymph # [place] # 1.1 H Baso # Seg Neutrophils % Seg Neuts % (Manual) Lymphocytes % (Manual) Monocytes % (Manual) Eosinophils % (Manual) Basophils % (Manual) Nucleated RBC % Seg Neutrophils # Seg Neutrophils # Man Lymphocytes # (Manual) Monocytes # (Manual) Eosinophils # (Manual) PT 16.8 H INR 1.37 H Fibrinogen dRVVT Confirm Interp Factor V Activity POC ABG pH POC ABG pCO2 POC ABG pO2 ABG pO2 ABG HCO3 ABG Base Excess ABG Hemoglobin Oxyhemoglobin Sodium Potassium 3.5 L Chloride Carbon Dioxide BUN 21 H Creatinine Glucose POC Glucose Lactic Acid Calcium 7.9 L Phosphorus Magnesium Direct Bilirubin AST ALT Alkaline Phosphatase Lactate Dehydrogenase Troponin T C-Reactive Protein Total Protein Albumin Prealbumin Triglycerides Cholesterol LDL Cholesterol Direct HDL Cholesterol Urine pH Urine WBC (Auto) Urine Creatinine Urine Total Protein Fluid Total Protein Vancomycin Trough Rheumatoid Factor Complement C4 Miscellaneous Test Crossmatch 11/17/16 11/17/16 11/17/16 06:34 11:21 21:22 WBC RBC Hgb Hct MCV MCH MCHC RDW Plt Count Lymph % (Auto) [place] % (Auto) Lymph # [place] # Baso # Seg Neutrophils % Seg Neuts % (Manual) Lymphocytes % (Manual) Monocytes % (Manual) Eosinophils % (Manual) Basophils % (Manual) Nucleated RBC % Seg Neutrophils # Seg Neutrophils # Man Lymphocytes # (Manual) Monocytes # (Manual) Eosinophils # (Manual) PT INR Fibrinogen dRVVT Confirm Interp Factor V Activity POC ABG pH 7.467 H POC ABG pCO2 POC ABG pO2 73 L ABG pO2 ABG HCO3 ABG Base Excess ABG Hemoglobin Oxyhemoglobin Sodium Potassium Chloride Carbon Dioxide BUN Creatinine Glucose POC Glucose 121 H 119 H Lactic Acid Calcium Phosphorus Magnesium Direct Bilirubin AST ALT Alkaline Phosphatase Lactate Dehydrogenase Troponin T C-Reactive Protein Total Protein Albumin Prealbumin Triglycerides Cholesterol LDL Cholesterol Direct HDL Cholesterol Urine pH Urine WBC (Auto) Urine Creatinine Urine Total Protein Fluid Total Protein Vancomycin Trough Rheumatoid Factor Complement C4 Miscellaneous Test Crossmatch 11/18/16 11/18/16 11/19/16 12:16 17:19 00:00 WBC RBC Hgb Hct MCV MCH MCHC RDW Plt Count Lymph % (Auto) [place] % (Auto) Lymph # [place] # [place] # Seg Neutrophils % Seg Neuts % (Manual) Lymphocytes % (Manual) Monocytes % (Manual) Eosinophils % (Manual) Basophils % (Manual) Nucleated RBC % Seg Neutrophils # Seg Neutrophils # Man Lymphocytes # (Manual) Monocytes # (Manual) Eosinophils # (Manual) PT INR Fibrinogen dRVVT Confirm Interp Factor V Activity POC ABG pH POC ABG pCO2 POC ABG pO2 ABG pO2 ABG HCO3 ABG Base Excess ABG Hemoglobin Oxyhemoglobin Sodium Potassium Chloride Carbon Dioxide BUN Creatinine Glucose POC Glucose 124 H 162 H 139 H Lactic Acid Calcium Phosphorus Magnesium Direct Bilirubin AST ALT Alkaline Phosphatase Lactate Dehydrogenase Troponin T C-Reactive Protein Total Protein Albumin Prealbumin Triglycerides Cholesterol LDL Cholesterol Direct HDL Cholesterol Urine pH Urine WBC (Auto) Urine Creatinine Urine Total Protein Fluid Total Protein Vancomycin Trough Rheumatoid Factor Complement C4 Miscellaneous Test Crossmatch 11/19/16 11/19/16 11/20/16 05:00 12:43 00:40 WBC RBC Hgb Hct MCV MCH MCHC RDW Plt Count Lymph % (Auto) [place] % (Auto) Lymph # [place] # Baso # Seg Neutrophils % Seg Neuts % (Manual) Lymphocytes % (Manual) Monocytes % (Manual) Eosinophils % (Manual) Basophils % (Manual) Nucleated RBC % Seg Neutrophils # Seg Neutrophils # Man Lymphocytes # (Manual) Monocytes # (Manual) Eosinophils # (Manual) PT INR Fibrinogen dRVVT Confirm Interp Factor V Activity POC ABG pH POC ABG pCO2 POC ABG pO2 ABG pO2 ABG HCO3 ABG Base Excess ABG Hemoglobin Oxyhemoglobin Sodium Potassium Chloride Carbon Dioxide BUN Creatinine Glucose POC Glucose 110 H 125 H 136 H Lactic Acid Calcium Phosphorus Magnesium Direct Bilirubin AST ALT Alkaline Phosphatase Lactate Dehydrogenase Troponin T C-Reactive Protein Total Protein Albumin Prealbumin Triglycerides Cholesterol LDL Cholesterol Direct HDL Cholesterol Urine pH Urine WBC (Auto) Urine Creatinine Urine Total Protein Fluid Total Protein Vancomycin Trough Rheumatoid Factor Complement C4 Miscellaneous Test Crossmatch 11/20/16 11/20/16 11/20/16 05:00 05:00 05:51 WBC 13.1 H RBC 2.74 L Hgb 7.7 L Hct 23.6 L MCV MCH MCHC RDW 16.9 H Plt Count Lymph % (Auto) [place] % (Auto) 10.8 H Lymph # [place] # 1.4 H Baso # Seg Neutrophils % Seg Neuts % (Manual) Lymphocytes % (Manual) Monocytes % (Manual) Eosinophils % (Manual) Basophils % (Manual) Nucleated RBC % Seg Neutrophils # 7.9 H Seg Neutrophils # Man Lymphocytes # (Manual) Monocytes # (Manual) Eosinophils # (Manual) PT INR Fibrinogen dRVVT Confirm Interp Factor V Activity POC ABG pH POC ABG pCO2 POC ABG pO2 ABG pO2 ABG HCO3 ABG Base Excess ABG Hemoglobin Oxyhemoglobin Sodium Potassium Chloride Carbon Dioxide BUN 31 H Creatinine 1.8 H Glucose 129 H POC Glucose 133 H Lactic Acid Calcium Phosphorus Magnesium Direct Bilirubin AST ALT Alkaline Phosphatase Lactate Dehydrogenase Troponin T C-Reactive Protein Total Protein Albumin Prealbumin Triglycerides Cholesterol LDL Cholesterol Direct HDL Cholesterol Urine pH Urine WBC (Auto) Urine Creatinine Urine Total Protein Fluid Total Protein Vancomycin Trough Rheumatoid Factor Complement C4 Miscellaneous Test Crossmatch 11/20/16 11/20/16 11/21/16 12:40 18:10 01:20 WBC RBC Hgb Hct MCV MCH MCHC RDW Plt Count Lymph % (Auto) [place] % (Auto) Lymph # [place] # Baso # Seg Neutrophils % Seg Neuts % (Manual) Lymphocytes % (Manual) Monocytes % (Manual) Eosinophils % (Manual) Basophils % (Manual) Nucleated RBC % Seg Neutrophils # Seg Neutrophils # Man Lymphocytes # (Manual) Monocytes # (Manual) Eosinophils # (Manual) PT INR Fibrinogen dRVVT Confirm Interp Factor V Activity POC ABG pH POC ABG pCO2 POC ABG pO2 ABG pO2 ABG HCO3 ABG Base Excess ABG Hemoglobin Oxyhemoglobin Sodium Potassium Chloride Carbon Dioxide BUN Creatinine Glucose POC Glucose 134 H 138 H 136 H Lactic Acid Calcium Phosphorus Magnesium Direct Bilirubin AST ALT Alkaline Phosphatase Lactate Dehydrogenase Troponin T C-Reactive Protein Total Protein Albumin Prealbumin Triglycerides Cholesterol LDL Cholesterol Direct HDL Cholesterol Urine pH Urine WBC (Auto) Urine Creatinine Urine Total Protein Fluid Total Protein Vancomycin Trough Rheumatoid Factor Complement C4 Miscellaneous Test Crossmatch 11/21/16 11/21/16 11/21/16 07:04 07:45 07:45 WBC 22.0 H RBC 2.91 L Hgb 8.2 L Hct 25.4 L MCV MCH MCHC RDW 17.1 H Plt Count Lymph % (Auto) [place] % (Auto) Lymph # [place] # Baso # Seg Neutrophils % Seg Neuts % (Manual) Lymphocytes % (Manual) 8.0 L Monocytes % (Manual) Eosinophils % (Manual) Basophils % (Manual) Nucleated RBC % Seg Neutrophils # Seg Neutrophils # Man 14.7 H Lymphocytes # (Manual) Monocytes # (Manual) 1.1 H Eosinophils # (Manual) PT INR Fibrinogen dRVVT Confirm Interp Factor V Activity POC ABG pH POC ABG pCO2 POC ABG pO2 ABG pO2 ABG HCO3 ABG Base Excess ABG Hemoglobin Oxyhemoglobin Sodium Potassium Chloride Carbon Dioxide BUN 42 H Creatinine 2.0 H Glucose POC Glucose 108 H Lactic Acid Calcium Phosphorus Magnesium Direct Bilirubin AST ALT Alkaline Phosphatase Lactate Dehydrogenase Troponin T C-Reactive Protein Total Protein Albumin Prealbumin Triglycerides Cholesterol LDL Cholesterol Direct HDL Cholesterol Urine pH Urine WBC (Auto) Urine Creatinine Urine Total Protein Fluid Total Protein Vancomycin Trough Rheumatoid Factor Complement C4 Miscellaneous Test Crossmatch 11/21/16 11/21/16 11/21/16 08:38 10:09 11:20 WBC RBC Hgb Hct MCV MCH MCHC RDW Plt Count Lymph % (Auto) [place] % (Auto) Lymph # [place] # Baso # Seg Neutrophils % Seg Neuts % (Manual) Lymphocytes % (Manual) Monocytes % (Manual) Eosinophils % (Manual) Basophils % (Manual) Nucleated RBC % Seg Neutrophils # Seg Neutrophils # Man Lymphocytes # (Manual) Monocytes # (Manual) Eosinophils # (Manual) PT INR Fibrinogen dRVVT Confirm Interp Factor V Activity POC ABG pH 7.346 L POC ABG pCO2 34.4 L POC ABG pO2 314 H ABG pO2 ABG HCO3 ABG Base Excess ABG Hemoglobin Oxyhemoglobin Sodium Potassium Chloride Carbon Dioxide BUN Creatinine Glucose POC Glucose 195 H 153 H Lactic Acid Calcium Phosphorus Magnesium Direct Bilirubin AST ALT Alkaline Phosphatase Lactate Dehydrogenase Troponin T C-Reactive Protein Total Protein Albumin Prealbumin Triglycerides Cholesterol LDL Cholesterol Direct HDL Cholesterol Urine pH Urine WBC (Auto) Urine Creatinine Urine Total Protein Fluid Total Protein Vancomycin Trough Rheumatoid Factor Complement C4 Miscellaneous Test Crossmatch 11/21/16 11/22/16 11/22/16 23:37 04:48 05:00 WBC 29.7 H RBC 2.73 L Hgb 7.5 L Hct 24.2 L MCV MCH 27 L MCHC RDW 17.4 H Plt Count Lymph % (Auto) [place] % (Auto) Lymph # [place] # Baso # Seg Neutrophils % Seg Neuts % (Manual) Lymphocytes % (Manual) 7.0 L Monocytes % (Manual) Eosinophils % (Manual) Basophils % (Manual) Nucleated RBC % Seg Neutrophils # Seg Neutrophils # Man 15.4 H Lymphocytes # (Manual) Monocytes # (Manual) Eosinophils # (Manual) PT INR Fibrinogen dRVVT Confirm Interp Factor V Activity POC ABG pH POC ABG pCO2 24.6 L POC ABG pO2 189 H ABG pO2 ABG HCO3 ABG Base Excess ABG Hemoglobin Oxyhemoglobin Sodium Potassium Chloride Carbon Dioxide BUN Creatinine Glucose POC Glucose 65 L Lactic Acid Calcium Phosphorus Magnesium Direct Bilirubin AST ALT Alkaline Phosphatase Lactate Dehydrogenase Troponin T C-Reactive Protein Total Protein Albumin Prealbumin Triglycerides Cholesterol LDL Cholesterol Direct HDL Cholesterol Urine pH Urine WBC (Auto) Urine Creatinine Urine Total Protein Fluid Total Protein Vancomycin Trough Rheumatoid Factor Complement C4 Miscellaneous Test Crossmatch 11/22/16 11/23/16 11/23/16 05:00 03:44 04:06 WBC RBC 2.52 L Hgb 7.2 L Hct 21.5 L MCV MCH MCHC RDW 17.1 H Plt Count Lymph % (Auto) [place] % (Auto) 12.4 H Lymph # [place] # 1.4 H Baso # Seg Neutrophils % Seg Neuts % (Manual) Lymphocytes % (Manual) Monocytes % (Manual) Eosinophils % (Manual) Basophils % (Manual) Nucleated RBC % Seg Neutrophils # Seg Neutrophils # Man Lymphocytes # (Manual) Monocytes # (Manual) Eosinophils # (Manual) PT INR Fibrinogen dRVVT Confirm Interp Factor V Activity POC ABG pH 7.493 H POC ABG pCO2 29.5 L POC ABG pO2 49 L ABG pO2 ABG HCO3 ABG Base Excess ABG Hemoglobin Oxyhemoglobin Sodium 134 L Potassium Chloride 95.9 L Carbon Dioxide 14 L D BUN 51 H Creatinine 2.6 H Glucose POC Glucose Lactic Acid Calcium Phosphorus Magnesium Direct Bilirubin AST ALT Alkaline Phosphatase Lactate Dehydrogenase Troponin T C-Reactive Protein Total Protein Albumin Prealbumin Triglycerides Cholesterol LDL Cholesterol Direct HDL Cholesterol Urine pH Urine WBC (Auto) Urine Creatinine Urine Total Protein Fluid Total Protein Vancomycin Trough Rheumatoid Factor Complement C4 Miscellaneous Test Crossmatch 11/23/16 11/23/16 11/24/16 04:06 11:29 06:39 WBC RBC Hgb Hct MCV MCH MCHC RDW Plt Count Lymph % (Auto) [place] % (Auto) Lymph # [place] # Baso # Seg Neutrophils % Seg Neuts % (Manual) Lymphocytes % (Manual) Monocytes % (Manual) Eosinophils % (Manual) Basophils % (Manual) Nucleated RBC % Seg Neutrophils # Seg Neutrophils # Man Lymphocytes # (Manual) Monocytes # (Manual) Eosinophils # (Manual) PT INR Fibrinogen dRVVT Confirm Interp Factor V Activity POC ABG pH POC ABG pCO2 POC ABG pO2 ABG pO2 ABG HCO3 ABG Base Excess ABG Hemoglobin Oxyhemoglobin Sodium 136 L Potassium Chloride 95.2 L Carbon Dioxide BUN 60 H Creatinine 2.9 H Glucose POC Glucose 69 L 305 H Lactic Acid Calcium Phosphorus Magnesium 1.60 L Direct Bilirubin AST ALT Alkaline Phosphatase Lactate Dehydrogenase Troponin T C-Reactive Protein Total Protein Albumin Prealbumin Triglycerides Cholesterol LDL Cholesterol Direct HDL Cholesterol Urine pH Urine WBC (Auto) Urine Creatinine Urine Total Protein Fluid Total Protein Vancomycin Trough Rheumatoid Factor Complement C4 Miscellaneous Test Crossmatch 11/24/16 11/24/16 11/24/16 06:43 08:08 08:08 WBC 11.2 H RBC 2.47 L Hgb 6.8 L Hct 20.6 L MCV MCH MCHC RDW 17.0 H Plt Count Lymph % (Auto) [place] % (Auto) 10.3 H Lymph # [place] # 1.2 H Baso # Seg Neutrophils % Seg Neuts % (Manual) Lymphocytes % (Manual) Monocytes % (Manual) Eosinophils % (Manual) Basophils % (Manual) Nucleated RBC % Seg Neutrophils # Seg Neutrophils # Man Lymphocytes # (Manual) Monocytes # (Manual) Eosinophils # (Manual) PT INR Fibrinogen dRVVT Confirm Interp Factor V Activity POC ABG pH POC ABG pCO2 POC ABG pO2 ABG pO2 ABG HCO3 ABG Base Excess ABG Hemoglobin Oxyhemoglobin Sodium 135 L Potassium Chloride 96.3 L Carbon Dioxide BUN 61 H Creatinine 3.1 H Glucose POC Glucose 62 L Lactic Acid Calcium 8.2 L Phosphorus Magnesium Direct Bilirubin AST ALT Alkaline Phosphatase Lactate Dehydrogenase Troponin T C-Reactive Protein Total Protein Albumin Prealbumin Triglycerides Cholesterol LDL Cholesterol Direct HDL Cholesterol Urine pH Urine WBC (Auto) Urine Creatinine Urine Total Protein Fluid Total Protein Vancomycin Trough Rheumatoid Factor Complement C4 Miscellaneous Test Crossmatch 11/24/16 11/24/16 11/24/16 08:34 11:20 12:41 WBC RBC Hgb Hct MCV MCH MCHC RDW Plt Count Lymph % (Auto) [place] % (Auto) Lymph # [place] # Baso # Seg Neutrophils % Seg Neuts % (Manual) Lymphocytes % (Manual) Monocytes % (Manual) Eosinophils % (Manual) Basophils % (Manual) Nucleated RBC % Seg Neutrophils # Seg Neutrophils # Man Lymphocytes # (Manual) Monocytes # (Manual) Eosinophils # (Manual) PT INR Fibrinogen dRVVT Confirm Interp Factor V Activity POC ABG pH POC ABG pCO2 POC ABG pO2 ABG pO2 ABG HCO3 ABG Base Excess ABG Hemoglobin Oxyhemoglobin Sodium Potassium Chloride Carbon Dioxide BUN Creatinine Glucose POC Glucose 108 H Lactic Acid Calcium Phosphorus Magnesium 1.60 L Direct Bilirubin AST ALT Alkaline Phosphatase Lactate Dehydrogenase Troponin T C-Reactive Protein Total Protein Albumin Prealbumin Triglycerides Cholesterol LDL Cholesterol Direct HDL Cholesterol Urine pH Urine WBC (Auto) Urine Creatinine Urine Total Protein Fluid Total Protein Vancomycin Trough Rheumatoid Factor Complement C4 Miscellaneous Test Crossmatch See Detail 11/25/16 11/25/16 11/25/16 00:03 04:42 04:42 WBC RBC 3.03 L Hgb 8.6 L Hct 25.3 L MCV MCH MCHC RDW 16.2 H Plt Count Lymph % (Auto) [place] % (Auto) 8.1 H Lymph # [place] # Baso # Seg Neutrophils % 71.3 H Seg Neuts % (Manual) Lymphocytes % (Manual) Monocytes % (Manual) Eosinophils % (Manual) Basophils % (Manual) Nucleated RBC % Seg Neutrophils # Seg Neutrophils # Man Lymphocytes # (Manual) Monocytes # (Manual) Eosinophils # (Manual) PT INR Fibrinogen dRVVT Confirm Interp Factor V Activity POC ABG pH POC ABG pCO2 POC ABG pO2 ABG pO2 ABG HCO3 ABG Base Excess ABG Hemoglobin Oxyhemoglobin Sodium Potassium Chloride Carbon Dioxide BUN 61 H Creatinine 3.0 H Glucose 102 H POC Glucose 113 H Lactic Acid Calcium 8.2 L Phosphorus Magnesium Direct Bilirubin AST ALT Alkaline Phosphatase 142 H Lactate Dehydrogenase Troponin T C-Reactive Protein Total Protein 5.7 L Albumin 1.5 L Prealbumin Triglycerides Cholesterol LDL Cholesterol Direct HDL Cholesterol Urine pH Urine WBC (Auto) Urine Creatinine Urine Total Protein Fluid Total Protein Vancomycin Trough Rheumatoid Factor Complement C4 Miscellaneous Test Crossmatch 11/25/16 11/25/16 11/25/16 05:12 11:31 14:12 WBC RBC Hgb Hct MCV MCH MCHC RDW Plt Count Lymph % (Auto) [place] % (Auto) Lymph # [place] # Baso # Seg Neutrophils % Seg Neuts % (Manual) Lymphocytes % (Manual) Monocytes % (Manual) Eosinophils % (Manual) Basophils % (Manual) Nucleated RBC % Seg Neutrophils # Seg Neutrophils # Man Lymphocytes # (Manual) Monocytes # (Manual) Eosinophils # (Manual) PT INR Fibrinogen dRVVT Confirm Interp Factor V Activity POC ABG pH 7.487 H POC ABG pCO2 POC ABG pO2 153 H ABG pO2 ABG HCO3 ABG Base Excess ABG Hemoglobin Oxyhemoglobin Sodium Potassium Chloride Carbon Dioxide BUN Creatinine Glucose POC Glucose 131 H 140 H Lactic Acid Calcium Phosphorus Magnesium Direct Bilirubin AST ALT Alkaline Phosphatase Lactate Dehydrogenase Troponin T C-Reactive Protein Total Protein Albumin Prealbumin Triglycerides Cholesterol LDL Cholesterol Direct HDL Cholesterol Urine pH Urine WBC (Auto) Urine Creatinine Urine Total Protein Fluid Total Protein Vancomycin Trough Rheumatoid Factor Complement C4 Miscellaneous Test Crossmatch 11/25/16 11/26/16 11/26/16 17:23 00:09 05:13 WBC RBC 2.94 L Hgb 8.4 L Hct 24.6 L MCV MCH MCHC RDW 16.4 H Plt Count Lymph % (Auto) [place] % (Auto) 12.3 H Lymph # [place] # 1.1 H Baso # Seg Neutrophils % Seg Neuts % (Manual) Lymphocytes % (Manual) Monocytes % (Manual) Eosinophils % (Manual) Basophils % (Manual) Nucleated RBC % Seg Neutrophils # Seg Neutrophils # Man Lymphocytes # (Manual) Monocytes # (Manual) Eosinophils # (Manual) PT INR Fibrinogen dRVVT Confirm Interp Factor V Activity POC ABG pH POC ABG pCO2 POC ABG pO2 ABG pO2 ABG HCO3 ABG Base Excess ABG Hemoglobin Oxyhemoglobin Sodium Potassium Chloride Carbon Dioxide BUN Creatinine Glucose POC Glucose 146 H 112 H Lactic Acid Calcium Phosphorus Magnesium Direct Bilirubin AST ALT Alkaline Phosphatase Lactate Dehydrogenase Troponin T C-Reactive Protein Total Protein Albumin Prealbumin Triglycerides Cholesterol LDL Cholesterol Direct HDL Cholesterol Urine pH Urine WBC (Auto) Urine Creatinine Urine Total Protein Fluid Total Protein Vancomycin Trough Rheumatoid Factor Complement C4 Miscellaneous Test Crossmatch 11/26/16 11/26/16 11/26/16 05:13 05:28 11:53 WBC RBC Hgb Hct MCV MCH MCHC RDW Plt Count Lymph % (Auto) [place] % (Auto) Lymph # [place] # Baso # Seg Neutrophils % Seg Neuts % (Manual) Lymphocytes % (Manual) Monocytes % (Manual) Eosinophils % (Manual) Basophils % (Manual) Nucleated RBC % Seg Neutrophils # Seg Neutrophils # Man Lymphocytes # (Manual) Monocytes # (Manual) Eosinophils # (Manual) PT INR Fibrinogen dRVVT Confirm Interp Factor V Activity POC ABG pH POC ABG pCO2 POC ABG pO2 ABG pO2 ABG HCO3 ABG Base Excess ABG Hemoglobin Oxyhemoglobin Sodium Potassium Chloride 97.8 L Carbon Dioxide BUN 37 H Creatinine 2.0 H Glucose 109 H POC Glucose 117 H 111 H Lactic Acid Calcium 7.9 L Phosphorus 1.80 L D Magnesium Direct Bilirubin AST ALT Alkaline Phosphatase Lactate Dehydrogenase Troponin T C-Reactive Protein Total Protein Albumin Prealbumin Triglycerides Cholesterol LDL Cholesterol Direct HDL Cholesterol Urine pH Urine WBC (Auto) Urine Creatinine Urine Total Protein Fluid Total Protein Vancomycin Trough Rheumatoid Factor Complement C4 Miscellaneous Test Crossmatch 11/26/16 11/27/16 11/27/16 17:14 04:50 06:02 WBC RBC Hgb Hct MCV MCH MCHC RDW Plt Count Lymph % (Auto) [place] % (Auto) Lymph # [place] # Baso # Seg Neutrophils % Seg Neuts % (Manual) Lymphocytes % (Manual) Monocytes % (Manual) Eosinophils % (Manual) Basophils % (Manual) Nucleated RBC % Seg Neutrophils # Seg Neutrophils # Man Lymphocytes # (Manual) Monocytes # (Manual) Eosinophils # (Manual) PT INR Fibrinogen dRVVT Confirm Interp Factor V Activity POC ABG pH POC ABG pCO2 POC ABG pO2 ABG pO2 75.2 L ABG HCO3 26.4 H ABG Base Excess ABG Hemoglobin 7.6 L Oxyhemoglobin 94.8 L Sodium Potassium Chloride Carbon Dioxide BUN 49 H Creatinine 2.3 H Glucose POC Glucose 115 H Lactic Acid Calcium Phosphorus 1.50 L Magnesium Direct Bilirubin AST ALT Alkaline Phosphatase Lactate Dehydrogenase Troponin T C-Reactive Protein Total Protein Albumin Prealbumin Triglycerides Cholesterol LDL Cholesterol Direct HDL Cholesterol Urine pH Urine WBC (Auto) Urine Creatinine Urine Total Protein Fluid Total Protein Vancomycin Trough Rheumatoid Factor Complement C4 Miscellaneous Test Crossmatch 11/27/16 11/27/16 11/27/16 06:02 11:25 17:25 WBC 11.6 H RBC 2.75 L Hgb 7.6 L Hct 23.4 L MCV MCH MCHC RDW 16.5 H Plt Count Lymph % (Auto) [place] % (Auto) Lymph # [place] # Baso # Seg Neutrophils % Seg Neuts % (Manual) Lymphocytes % (Manual) Monocytes % (Manual) Eosinophils % (Manual) Basophils % (Manual) Nucleated RBC % Seg Neutrophils # Seg Neutrophils # Man Lymphocytes # (Manual) Monocytes # (Manual) Eosinophils # (Manual) PT INR Fibrinogen dRVVT Confirm Interp Factor V Activity POC ABG pH POC ABG pCO2 POC ABG pO2 ABG pO2 ABG HCO3 ABG Base Excess ABG Hemoglobin Oxyhemoglobin Sodium Potassium Chloride Carbon Dioxide BUN Creatinine Glucose POC Glucose 114 H 126 H Lactic Acid Calcium Phosphorus Magnesium Direct Bilirubin AST ALT Alkaline Phosphatase Lactate Dehydrogenase Troponin T C-Reactive Protein Total Protein Albumin Prealbumin Triglycerides Cholesterol LDL Cholesterol Direct HDL Cholesterol Urine pH Urine WBC (Auto) Urine Creatinine Urine Total Protein Fluid Total Protein Vancomycin Trough Rheumatoid Factor Complement C4 Miscellaneous Test Crossmatch 11/28/16 11/28/16 11/28/16 04:45 05:33 05:44 WBC RBC Hgb Hct MCV MCH MCHC RDW Plt Count Lymph % (Auto) [place] % (Auto) Lymph # [place] # Baso # Seg Neutrophils % Seg Neuts % (Manual) Lymphocytes % (Manual) Monocytes % (Manual) Eosinophils % (Manual) Basophils % (Manual) Nucleated RBC % Seg Neutrophils # Seg Neutrophils # Man Lymphocytes # (Manual) Monocytes # (Manual) Eosinophils # (Manual) PT INR Fibrinogen dRVVT Confirm Interp Factor V Activity POC ABG pH POC ABG pCO2 POC ABG pO2 ABG pO2 99.3 H ABG HCO3 ABG Base Excess ABG Hemoglobin 8.3 L Oxyhemoglobin Sodium Potassium Chloride Carbon Dioxide BUN 63 H Creatinine 2.4 H Glucose 102 H POC Glucose 108 H Lactic Acid Calcium Phosphorus 1.80 L Magnesium Direct Bilirubin AST ALT Alkaline Phosphatase Lactate Dehydrogenase Troponin T C-Reactive Protein Total Protein Albumin Prealbumin Triglycerides Cholesterol LDL Cholesterol Direct HDL Cholesterol Urine pH Urine WBC (Auto) Urine Creatinine Urine Total Protein Fluid Total Protein Vancomycin Trough Rheumatoid Factor Complement C4 Miscellaneous Test Crossmatch 11/28/16 11/28/16 11/28/16 12:31 16:09 23:46 WBC RBC Hgb Hct MCV MCH MCHC RDW Plt Count Lymph % (Auto) [place] % (Auto) Lymph # [place] # Baso # Seg Neutrophils % Seg Neuts % (Manual) Lymphocytes % (Manual) Monocytes % (Manual) Eosinophils % (Manual) Basophils % (Manual) Nucleated RBC % Seg Neutrophils # Seg Neutrophils # Man Lymphocytes # (Manual) Monocytes # (Manual) Eosinophils # (Manual) PT INR Fibrinogen dRVVT Confirm Interp Factor V Activity POC ABG pH POC ABG pCO2 POC ABG pO2 ABG pO2 ABG HCO3 ABG Base Excess ABG Hemoglobin Oxyhemoglobin Sodium Potassium Chloride Carbon Dioxide BUN Creatinine Glucose POC Glucose 126 H 111 H 119 H Lactic Acid Calcium Phosphorus Magnesium Direct Bilirubin AST ALT Alkaline Phosphatase Lactate Dehydrogenase Troponin T C-Reactive Protein Total Protein Albumin Prealbumin Triglycerides Cholesterol LDL Cholesterol Direct HDL Cholesterol Urine pH Urine WBC (Auto) Urine Creatinine Urine Total Protein Fluid Total Protein Vancomycin Trough Rheumatoid Factor Complement C4 Miscellaneous Test Crossmatch 11/29/16 11/29/16 11/29/16 03:33 04:52 05:10 WBC RBC Hgb Hct MCV MCH MCHC RDW Plt Count Lymph % (Auto) [place] % (Auto) Lymph # [place] # Baso # Seg Neutrophils % Seg Neuts % (Manual) Lymphocytes % (Manual) Monocytes % (Manual) Eosinophils % (Manual) Basophils % (Manual) Nucleated RBC % Seg Neutrophils # Seg Neutrophils # Man Lymphocytes # (Manual) Monocytes # (Manual) Eosinophils # (Manual) PT INR Fibrinogen dRVVT Confirm Interp Factor V Activity POC ABG pH POC ABG pCO2 POC ABG pO2 ABG pO2 ABG HCO3 ABG Base Excess ABG Hemoglobin 7.0 L Oxyhemoglobin 94.9 L Sodium Potassium Chloride Carbon Dioxide BUN 73 H Creatinine 2.7 H Glucose POC Glucose 108 H Lactic Acid Calcium Phosphorus Magnesium Direct Bilirubin AST ALT Alkaline Phosphatase Lactate Dehydrogenase Troponin T C-Reactive Protein Total Protein Albumin Prealbumin Triglycerides Cholesterol LDL Cholesterol Direct HDL Cholesterol Urine pH Urine WBC (Auto) Urine Creatinine Urine Total Protein Fluid Total Protein Vancomycin Trough Rheumatoid Factor Complement C4 Miscellaneous Test Crossmatch 11/29/16 11/29/16 11/29/16 12:16 18:05 23:46 WBC RBC Hgb Hct MCV MCH MCHC RDW Plt Count Lymph % (Auto) [place] % (Auto) Lymph # [place] # Baso # Seg Neutrophils % Seg Neuts % (Manual) Lymphocytes % (Manual) Monocytes % (Manual) Eosinophils % (Manual) Basophils % (Manual) Nucleated RBC % Seg Neutrophils # Seg Neutrophils # Man Lymphocytes # (Manual) Monocytes # (Manual) Eosinophils # (Manual) PT INR Fibrinogen dRVVT Confirm Interp Factor V Activity POC ABG pH POC ABG pCO2 POC ABG pO2 ABG pO2 ABG HCO3 ABG Base Excess ABG Hemoglobin Oxyhemoglobin Sodium Potassium Chloride Carbon Dioxide BUN Creatinine Glucose POC Glucose 133 H 146 H 141 H Lactic Acid Calcium Phosphorus Magnesium Direct Bilirubin AST ALT Alkaline Phosphatase Lactate Dehydrogenase Troponin T C-Reactive Protein Total Protein Albumin Prealbumin Triglycerides Cholesterol LDL Cholesterol Direct HDL Cholesterol Urine pH Urine WBC (Auto) Urine Creatinine Urine Total Protein Fluid Total Protein Vancomycin Trough Rheumatoid Factor Complement C4 Miscellaneous Test Crossmatch 11/30/16 11/30/16 11/30/16 04:17 04:17 04:32 WBC 12.0 H RBC 2.80 L Hgb 7.8 L Hct 23.6 L MCV MCH MCHC RDW 16.6 H Plt Count Lymph % (Auto) [place] % (Auto) 11.3 H Lymph # [place] # 1.4 H Baso # Seg Neutrophils % Seg Neuts % (Manual) Lymphocytes % (Manual) Monocytes % (Manual) Eosinophils % (Manual) Basophils % (Manual) Nucleated RBC % Seg Neutrophils # 8.2 H Seg Neutrophils # Man Lymphocytes # (Manual) Monocytes # (Manual) Eosinophils # (Manual) PT INR Fibrinogen dRVVT Confirm Interp Factor V Activity POC ABG pH POC ABG pCO2 POC ABG pO2 ABG pO2 ABG HCO3 ABG Base Excess ABG Hemoglobin Oxyhemoglobin Sodium 169 H* D Potassium 5.1 H Chloride 121.5 H Carbon Dioxide BUN 34 H Creatinine 1.3 H D Glucose 133 H POC Glucose 131 H Lactic Acid Calcium 10.3 H Phosphorus Magnesium Direct Bilirubin AST ALT Alkaline Phosphatase Lactate Dehydrogenase Troponin T C-Reactive Protein Total Protein Albumin Prealbumin Triglycerides Cholesterol LDL Cholesterol Direct HDL Cholesterol Urine pH Urine WBC (Auto) Urine Creatinine Urine Total Protein Fluid Total Protein Vancomycin Trough Rheumatoid Factor Complement C4 Miscellaneous Test Crossmatch 11/30/16 11/30/16 11/30/16 05:45 11:10 17:26 WBC RBC Hgb Hct MCV MCH MCHC RDW Plt Count Lymph % (Auto) [place] % (Auto) Lymph # [place] # Baso # Seg Neutrophils % Seg Neuts % (Manual) Lymphocytes % (Manual) Monocytes % (Manual) Eosinophils % (Manual) Basophils % (Manual) Nucleated RBC % Seg Neutrophils # Seg Neutrophils # Man Lymphocytes # (Manual) Monocytes # (Manual) Eosinophils # (Manual) PT INR Fibrinogen dRVVT Confirm Interp Factor V Activity POC ABG pH POC ABG pCO2 POC ABG pO2 ABG pO2 ABG HCO3 ABG Base Excess ABG Hemoglobin Oxyhemoglobin Sodium Potassium Chloride Carbon Dioxide BUN 45 H Creatinine 1.6 H Glucose 131 H POC Glucose 146 H 134 H Lactic Acid Calcium Phosphorus Magnesium Direct Bilirubin AST ALT Alkaline Phosphatase Lactate Dehydrogenase Troponin T C-Reactive Protein Total Protein Albumin Prealbumin Triglycerides Cholesterol LDL Cholesterol Direct HDL Cholesterol Urine pH Urine WBC (Auto) Urine Creatinine Urine Total Protein Fluid Total Protein Vancomycin Trough Rheumatoid Factor Complement C4 Miscellaneous Test Crossmatch 11/30/16 12/01/16 12/01/16 23:35 00:06 03:35 WBC RBC Hgb Hct MCV MCH MCHC RDW Plt Count Lymph % (Auto) [place] % (Auto) Lymph # [place] # Baso # Seg Neutrophils % Seg Neuts % (Manual) Lymphocytes % (Manual) Monocytes % (Manual) Eosinophils % (Manual) Basophils % (Manual) Nucleated RBC % Seg Neutrophils # Seg Neutrophils # Man Lymphocytes # (Manual) Monocytes # (Manual) Eosinophils # (Manual) PT INR Fibrinogen dRVVT Confirm Interp Factor V Activity POC ABG pH POC ABG pCO2 POC ABG pO2 ABG pO2 ABG HCO3 ABG Base Excess ABG Hemoglobin 6.9 L Oxyhemoglobin Sodium Potassium Chloride Carbon Dioxide BUN 58 H Creatinine 1.8 H Glucose 146 H POC Glucose 151 H Lactic Acid Calcium Phosphorus Magnesium Direct Bilirubin AST ALT Alkaline Phosphatase Lactate Dehydrogenase Troponin T C-Reactive Protein Total Protein Albumin Prealbumin Triglycerides Cholesterol LDL Cholesterol Direct HDL Cholesterol Urine pH Urine WBC (Auto) Urine Creatinine Urine Total Protein Fluid Total Protein Vancomycin Trough Rheumatoid Factor Complement C4 Miscellaneous Test Crossmatch 12/01/16 12/01/16 12/01/16 03:35 05:47 11:52 WBC 12.3 H RBC 2.82 L Hgb 7.8 L Hct 23.7 L MCV MCH MCHC RDW 16.7 H Plt Count Lymph % (Auto) [place] % (Auto) 9.8 H Lymph # [place] # 1.2 H Baso # Seg Neutrophils % Seg Neuts % (Manual) Lymphocytes % (Manual) Monocytes % (Manual) Eosinophils % (Manual) Basophils % (Manual) Nucleated RBC % Seg Neutrophils # 8.4 H Seg Neutrophils # Man Lymphocytes # (Manual) Monocytes # (Manual) Eosinophils # (Manual) PT INR Fibrinogen dRVVT Confirm Interp Factor V Activity POC ABG pH POC ABG pCO2 POC ABG pO2 ABG pO2 ABG HCO3 ABG Base Excess ABG Hemoglobin Oxyhemoglobin Sodium Potassium Chloride Carbon Dioxide BUN Creatinine Glucose POC Glucose 152 H 152 H Lactic Acid Calcium Phosphorus Magnesium Direct Bilirubin AST ALT Alkaline Phosphatase Lactate Dehydrogenase Troponin T C-Reactive Protein Total Protein Albumin Prealbumin Triglycerides Cholesterol LDL Cholesterol Direct HDL Cholesterol Urine pH Urine WBC (Auto) Urine Creatinine Urine Total Protein Fluid Total Protein Vancomycin Trough Rheumatoid Factor Complement C4 Miscellaneous Test Crossmatch 12/01/16 12/01/16 12/02/16 17:40 23:41 05:00 WBC RBC Hgb Hct MCV MCH MCHC RDW Plt Count Lymph % (Auto) [place] % (Auto) Lymph # [place] # Baso # Seg Neutrophils % Seg Neuts % (Manual) Lymphocytes % (Manual) Monocytes % (Manual) Eosinophils % (Manual) Basophils % (Manual) Nucleated RBC % Seg Neutrophils # Seg Neutrophils # Man Lymphocytes # (Manual) Monocytes # (Manual) Eosinophils # (Manual) PT INR Fibrinogen dRVVT Confirm Interp Factor V Activity POC ABG pH POC ABG pCO2 POC ABG pO2 ABG pO2 ABG HCO3 ABG Base Excess ABG Hemoglobin Oxyhemoglobin Sodium Potassium Chloride Carbon Dioxide BUN 45 H Creatinine Glucose 115 H POC Glucose 140 H 144 H Lactic Acid Calcium Phosphorus Magnesium Direct Bilirubin AST ALT Alkaline Phosphatase Lactate Dehydrogenase Troponin T C-Reactive Protein Total Protein Albumin Prealbumin Triglycerides Cholesterol LDL Cholesterol Direct HDL Cholesterol Urine pH Urine WBC (Auto) Urine Creatinine Urine Total Protein Fluid Total Protein Vancomycin Trough Rheumatoid Factor Complement C4 Miscellaneous Test Crossmatch 12/02/16 12/02/16 12/02/16 05:31 11:20 17:38 WBC RBC Hgb Hct MCV MCH MCHC RDW Plt Count Lymph % (Auto) [place] % (Auto) Lymph # [place] # Baso # Seg Neutrophils % Seg Neuts % (Manual) Lymphocytes % (Manual) Monocytes % (Manual) Eosinophils % (Manual) Basophils % (Manual) Nucleated RBC % Seg Neutrophils # Seg Neutrophils # Man Lymphocytes # (Manual) Monocytes # (Manual) Eosinophils # (Manual) PT INR Fibrinogen dRVVT Confirm Interp Factor V Activity POC ABG pH POC ABG pCO2 POC ABG pO2 ABG pO2 ABG HCO3 ABG Base Excess ABG Hemoglobin Oxyhemoglobin Sodium Potassium Chloride Carbon Dioxide BUN Creatinine Glucose POC Glucose 136 H 177 H 139 H Lactic Acid Calcium Phosphorus Magnesium Direct Bilirubin AST ALT Alkaline Phosphatase Lactate Dehydrogenase Troponin T C-Reactive Protein Total Protein Albumin Prealbumin Triglycerides Cholesterol LDL Cholesterol Direct HDL Cholesterol Urine pH Urine WBC (Auto) Urine Creatinine Urine Total Protein Fluid Total Protein Vancomycin Trough Rheumatoid Factor Complement C4 Miscellaneous Test Crossmatch 12/02/16 12/03/16 12/03/16 23:43 04:00 04:00 WBC 20.4 H RBC 2.74 L Hgb 7.4 L Hct 23.6 L MCV MCH 27 L MCHC RDW 17.1 H Plt Count Lymph % (Auto) [place] % (Auto) Lymph # [place] # Baso # Seg Neutrophils % Seg Neuts % (Manual) 31.0 L Lymphocytes % (Manual) Monocytes % (Manual) Eosinophils % (Manual) Basophils % (Manual) Nucleated RBC % Seg Neutrophils # Seg Neutrophils # Man Lymphocytes # (Manual) Monocytes # (Manual) Eosinophils # (Manual) PT INR Fibrinogen dRVVT Confirm Interp Factor V Activity POC ABG pH POC ABG pCO2 POC ABG pO2 ABG pO2 ABG HCO3 ABG Base Excess ABG Hemoglobin Oxyhemoglobin Sodium Potassium Chloride Carbon Dioxide BUN 61 H Creatinine 1.6 H Glucose 119 H POC Glucose 158 H Lactic Acid Calcium Phosphorus Magnesium Direct Bilirubin AST ALT Alkaline Phosphatase Lactate Dehydrogenase Troponin T C-Reactive Protein Total Protein Albumin Prealbumin Triglycerides Cholesterol LDL Cholesterol Direct HDL Cholesterol Urine pH Urine WBC (Auto) Urine Creatinine Urine Total Protein Fluid Total Protein Vancomycin Trough Rheumatoid Factor Complement C4 Miscellaneous Test Crossmatch 12/03/16 12/03/16 12/03/16 05:02 12:11 18:16 WBC RBC Hgb Hct MCV MCH MCHC RDW Plt Count Lymph % (Auto) [place] % (Auto) Lymph # [place] # Baso # Seg Neutrophils % Seg Neuts % (Manual) Lymphocytes % (Manual) Monocytes % (Manual) Eosinophils % (Manual) Basophils % (Manual) Nucleated RBC % Seg Neutrophils # Seg Neutrophils # Man Lymphocytes # (Manual) Monocytes # (Manual) Eosinophils # (Manual) PT INR Fibrinogen dRVVT Confirm Interp Factor V Activity POC ABG pH POC ABG pCO2 POC ABG pO2 ABG pO2 ABG HCO3 ABG Base Excess ABG Hemoglobin Oxyhemoglobin Sodium Potassium Chloride Carbon Dioxide BUN Creatinine Glucose POC Glucose 146 H 157 H 124 H Lactic Acid Calcium Phosphorus Magnesium Direct Bilirubin AST ALT Alkaline Phosphatase Lactate Dehydrogenase Troponin T C-Reactive Protein Total Protein Albumin Prealbumin Triglycerides Cholesterol LDL Cholesterol Direct HDL Cholesterol Urine pH Urine WBC (Auto) Urine Creatinine Urine Total Protein Fluid Total Protein Vancomycin Trough Rheumatoid Factor Complement C4 Miscellaneous Test Crossmatch 12/03/16 12/04/16 12/04/16 23:41 04:00 04:45 WBC RBC Hgb Hct MCV MCH MCHC RDW Plt Count Lymph % (Auto) [place] % (Auto) Lymph # [place] # Baso # Seg Neutrophils % Seg Neuts % (Manual) Lymphocytes % (Manual) Monocytes % (Manual) Eosinophils % (Manual) Basophils % (Manual) Nucleated RBC % Seg Neutrophils # Seg Neutrophils # Man Lymphocytes # (Manual) Monocytes # (Manual) Eosinophils # (Manual) PT INR Fibrinogen dRVVT Confirm Interp Factor V Activity POC ABG pH POC ABG pCO2 POC ABG pO2 ABG pO2 ABG HCO3 ABG Base Excess ABG Hemoglobin Oxyhemoglobin Sodium Potassium Chloride Carbon Dioxide BUN 76 H Creatinine 1.6 H Glucose POC Glucose 130 H 136 H Lactic Acid Calcium Phosphorus Magnesium Direct Bilirubin AST ALT Alkaline Phosphatase 155 H Lactate Dehydrogenase Troponin T C-Reactive Protein Total Protein 5.5 L Albumin 1.5 L Prealbumin Triglycerides Cholesterol LDL Cholesterol Direct HDL Cholesterol Urine pH Urine WBC (Auto) Urine Creatinine Urine Total Protein Fluid Total Protein Vancomycin Trough Rheumatoid Factor Complement C4 Miscellaneous Test Crossmatch 12/04/16 12/04/16 12/05/16 12:08 17:23 00:10 WBC RBC Hgb Hct MCV MCH MCHC RDW Plt Count Lymph % (Auto) [place] % (Auto) Lymph # [place] # Baso # Seg Neutrophils % Seg Neuts % (Manual) Lymphocytes % (Manual) Monocytes % (Manual) Eosinophils % (Manual) Basophils % (Manual) Nucleated RBC % Seg Neutrophils # Seg Neutrophils # Man Lymphocytes # (Manual) Monocytes # (Manual) Eosinophils # (Manual) PT INR Fibrinogen dRVVT Confirm Interp Factor V Activity POC ABG pH POC ABG pCO2 POC ABG pO2 ABG pO2 ABG HCO3 ABG Base Excess ABG Hemoglobin Oxyhemoglobin Sodium Potassium Chloride Carbon Dioxide BUN Creatinine Glucose POC Glucose 114 H 129 H 124 H Lactic Acid Calcium Phosphorus Magnesium Direct Bilirubin AST ALT Alkaline Phosphatase Lactate Dehydrogenase Troponin T C-Reactive Protein Total Protein Albumin Prealbumin Triglycerides Cholesterol LDL Cholesterol Direct HDL Cholesterol Urine pH Urine WBC (Auto) Urine Creatinine Urine Total Protein Fluid Total Protein Vancomycin Trough Rheumatoid Factor Complement C4 Miscellaneous Test Crossmatch 12/05/16 12/05/16 12/05/16 05:00 05:00 05:18 WBC RBC Hgb Hct MCV MCH MCHC RDW Plt Count Lymph % (Auto) [place] % (Auto) Lymph # [place] # Baso # Seg Neutrophils % Seg Neuts % (Manual) Lymphocytes % (Manual) Monocytes % (Manual) Eosinophils % (Manual) Basophils % (Manual) Nucleated RBC % Seg Neutrophils # Seg Neutrophils # Man Lymphocytes # (Manual) Monocytes # (Manual) Eosinophils # (Manual) PT INR Fibrinogen dRVVT Confirm Interp Factor V Activity POC ABG pH POC ABG pCO2 POC ABG pO2 ABG pO2 ABG HCO3 ABG Base Excess ABG Hemoglobin Oxyhemoglobin Sodium Potassium Chloride Carbon Dioxide 21 L BUN 85 H Creatinine 1.9 H Glucose 131 H POC Glucose 154 H Lactic Acid Calcium Phosphorus Magnesium Direct Bilirubin AST ALT Alkaline Phosphatase Lactate Dehydrogenase Troponin T C-Reactive Protein 19.30 H Total Protein Albumin Prealbumin Triglycerides Cholesterol LDL Cholesterol Direct HDL Cholesterol Urine pH Urine WBC (Auto) Urine Creatinine Urine Total Protein Fluid Total Protein Vancomycin Trough Rheumatoid Factor Complement C4 Miscellaneous Test Crossmatch 12/05/16 12/05/16 12/05/16 11:43 17:46 23:25 WBC RBC Hgb Hct MCV MCH MCHC RDW Plt Count Lymph % (Auto) [place] % (Auto) Lymph # [place] # Baso # Seg Neutrophils % Seg Neuts % (Manual) Lymphocytes % (Manual) Monocytes % (Manual) Eosinophils % (Manual) Basophils % (Manual) Nucleated RBC % Seg Neutrophils # Seg Neutrophils # Man Lymphocytes # (Manual) Monocytes # (Manual) Eosinophils # (Manual) PT INR Fibrinogen dRVVT Confirm Interp Factor V Activity POC ABG pH POC ABG pCO2 POC ABG pO2 ABG pO2 ABG HCO3 ABG Base Excess ABG Hemoglobin Oxyhemoglobin Sodium Potassium Chloride Carbon Dioxide BUN Creatinine Glucose POC Glucose 117 H 113 H 111 H Lactic Acid Calcium Phosphorus Magnesium Direct Bilirubin AST ALT Alkaline Phosphatase Lactate Dehydrogenase Troponin T C-Reactive Protein Total Protein Albumin Prealbumin Triglycerides Cholesterol LDL Cholesterol Direct HDL Cholesterol Urine pH Urine WBC (Auto) Urine Creatinine Urine Total Protein Fluid Total Protein Vancomycin Trough Rheumatoid Factor Complement C4 Miscellaneous Test Crossmatch 12/05/16 12/06/16 12/06/16 Unknown 04:58 06:00 WBC RBC Hgb Hct MCV MCH MCHC RDW Plt Count Lymph % (Auto) [place] % (Auto) Lymph # [place] # Baso # Seg Neutrophils % Seg Neuts % (Manual) Lymphocytes % (Manual) Monocytes % (Manual) Eosinophils % (Manual) Basophils % (Manual) Nucleated RBC % Seg Neutrophils # Seg Neutrophils # Man Lymphocytes # (Manual) Monocytes # (Manual) Eosinophils # (Manual) PT INR Fibrinogen dRVVT Confirm Interp Factor V Activity POC ABG pH POC ABG pCO2 POC ABG pO2 ABG pO2 75.2 L ABG HCO3 ABG Base Excess -3.4 L ABG Hemoglobin 7.4 L Oxyhemoglobin 94.5 L Sodium Potassium Chloride Carbon Dioxide 20 L BUN 99 H Creatinine 2.1 H Glucose 126 H POC Glucose 145 H Lactic Acid Calcium Phosphorus 4.80 H Magnesium Direct Bilirubin AST ALT Alkaline Phosphatase Lactate Dehydrogenase Troponin T C-Reactive Protein Total Protein Albumin Prealbumin Triglycerides Cholesterol LDL Cholesterol Direct HDL Cholesterol Urine pH Urine WBC (Auto) Urine Creatinine Urine Total Protein Fluid Total Protein Vancomycin Trough Rheumatoid Factor Complement C4 Miscellaneous Test Crossmatch 12/06/16 12/06/16 12/06/16 06:46 11:54 17:55 WBC RBC Hgb 8.3 L Hct 26.4 L MCV MCH MCHC RDW Plt Count Lymph % (Auto) [place] % (Auto) Lymph # [place] # Baso # Seg Neutrophils % Seg Neuts % (Manual) Lymphocytes % (Manual) Monocytes % (Manual) Eosinophils % (Manual) Basophils % (Manual) Nucleated RBC % Seg Neutrophils # Seg Neutrophils # Man Lymphocytes # (Manual) Monocytes # (Manual) Eosinophils # (Manual) PT INR Fibrinogen dRVVT Confirm Interp Factor V Activity POC ABG pH POC ABG pCO2 POC ABG pO2 ABG pO2 ABG HCO3 ABG Base Excess ABG Hemoglobin Oxyhemoglobin Sodium Potassium Chloride Carbon Dioxide BUN Creatinine Glucose POC Glucose 126 H 157 H Lactic Acid Calcium Phosphorus Magnesium Direct Bilirubin AST ALT Alkaline Phosphatase Lactate Dehydrogenase Troponin T C-Reactive Protein Total Protein Albumin Prealbumin Triglycerides Cholesterol LDL Cholesterol Direct HDL Cholesterol Urine pH Urine WBC (Auto) Urine Creatinine Urine Total Protein Fluid Total Protein Vancomycin Trough Rheumatoid Factor Complement C4 Miscellaneous Test Crossmatch 12/06/16 12/07/16 12/07/16 23:59 05:34 06:30 WBC RBC Hgb Hct MCV MCH MCHC RDW Plt Count Lymph % (Auto) [place] % (Auto) Lymph # [place] # Baso # Seg Neutrophils % Seg Neuts % (Manual) Lymphocytes % (Manual) Monocytes % (Manual) Eosinophils % (Manual) Basophils % (Manual) Nucleated RBC % Seg Neutrophils # Seg Neutrophils # Man Lymphocytes # (Manual) Monocytes # (Manual) Eosinophils # (Manual) PT INR Fibrinogen dRVVT Confirm Interp Factor V Activity POC ABG pH POC ABG pCO2 POC ABG pO2 ABG pO2 ABG HCO3 ABG Base Excess ABG Hemoglobin Oxyhemoglobin Sodium Potassium Chloride Carbon Dioxide BUN 67 H Creatinine 1.4 H Glucose 126 H POC Glucose 129 H 129 H Lactic Acid Calcium Phosphorus Magnesium Direct Bilirubin AST ALT Alkaline Phosphatase Lactate Dehydrogenase Troponin T C-Reactive Protein Total Protein Albumin Prealbumin Triglycerides Cholesterol LDL Cholesterol Direct HDL Cholesterol Urine pH Urine WBC (Auto) Urine Creatinine Urine Total Protein Fluid Total Protein Vancomycin Trough Rheumatoid Factor Complement C4 Miscellaneous Test Crossmatch 12/07/16 12/07/16 12/07/16 06:30 08:00 09:45 WBC 18.8 H RBC 2.52 L Hgb 6.9 L 6.8 L Hct 21.2 L 21.1 L MCV MCH 27 L MCHC RDW 18.0 H Plt Count Lymph % (Auto) [place] % (Auto) 9.9 H Lymph # [place] # 1.9 H Baso # Seg Neutrophils % 71.8 H Seg Neuts % (Manual) Lymphocytes % (Manual) Monocytes % (Manual) Eosinophils % (Manual) Basophils % (Manual) Nucleated RBC % Seg Neutrophils # 13.5 H Seg Neutrophils # Man Lymphocytes # (Manual) Monocytes # (Manual) Eosinophils # (Manual) PT INR Fibrinogen dRVVT Confirm Interp Factor V Activity POC ABG pH POC ABG pCO2 POC ABG pO2 ABG pO2 ABG HCO3 ABG Base Excess ABG Hemoglobin Oxyhemoglobin Sodium Potassium Chloride Carbon Dioxide BUN Creatinine Glucose POC Glucose Lactic Acid Calcium Phosphorus Magnesium Direct Bilirubin AST ALT Alkaline Phosphatase Lactate Dehydrogenase Troponin T C-Reactive Protein Total Protein Albumin Prealbumin Triglycerides Cholesterol LDL Cholesterol Direct HDL Cholesterol Urine pH Urine WBC (Auto) Urine Creatinine Urine Total Protein Fluid Total Protein Vancomycin Trough Rheumatoid Factor Complement C4 Miscellaneous Test Crossmatch See Detail 12/07/16 12/07/16 12/07/16 11:44 18:19 23:59 WBC RBC Hgb Hct MCV MCH MCHC RDW Plt Count Lymph % (Auto) [place] % (Auto) Lymph # [place] # Baso # Seg Neutrophils % Seg Neuts % (Manual) Lymphocytes % (Manual) Monocytes % (Manual) Eosinophils % (Manual) Basophils % (Manual) Nucleated RBC % Seg Neutrophils # Seg Neutrophils # Man Lymphocytes # (Manual) Monocytes # (Manual) Eosinophils # (Manual) PT INR Fibrinogen dRVVT Confirm Interp Factor V Activity POC ABG pH POC ABG pCO2 POC ABG pO2 ABG pO2 ABG HCO3 ABG Base Excess ABG Hemoglobin Oxyhemoglobin Sodium Potassium Chloride Carbon Dioxide BUN Creatinine Glucose POC Glucose 137 H 138 H 133 H Lactic Acid Calcium Phosphorus Magnesium Direct Bilirubin AST ALT Alkaline Phosphatase Lactate Dehydrogenase Troponin T C-Reactive Protein Total Protein Albumin Prealbumin Triglycerides Cholesterol LDL Cholesterol Direct HDL Cholesterol Urine pH Urine WBC (Auto) Urine Creatinine Urine Total Protein Fluid Total Protein Vancomycin Trough Rheumatoid Factor Complement C4 Miscellaneous Test Crossmatch 12/08/16 12/08/16 12/08/16 05:25 05:30 05:30 WBC 23.8 H RBC 2.88 L Hgb 8.1 L Hct 24.3 L MCV MCH MCHC RDW 16.7 H Plt Count Lymph % (Auto) [place] % (Auto) Lymph # [place] # Baso # Seg Neutrophils % Seg Neuts % (Manual) 76.0 H Lymphocytes % (Manual) 9.0 L Monocytes % (Manual) 9.0 H Eosinophils % (Manual) Basophils % (Manual) Nucleated RBC % Seg Neutrophils # Seg Neutrophils # Man 18.1 H Lymphocytes # (Manual) Monocytes # (Manual) 2.1 H Eosinophils # (Manual) PT INR Fibrinogen dRVVT Confirm Interp Factor V Activity POC ABG pH POC ABG pCO2 POC ABG pO2 ABG pO2 ABG HCO3 ABG Base Excess ABG Hemoglobin Oxyhemoglobin Sodium Potassium Chloride Carbon Dioxide 21 L BUN 76 H Creatinine 1.6 H Glucose 133 H POC Glucose 177 H Lactic Acid Calcium Phosphorus Magnesium Direct Bilirubin AST ALT Alkaline Phosphatase Lactate Dehydrogenase Troponin T C-Reactive Protein Total Protein Albumin Prealbumin Triglycerides Cholesterol LDL Cholesterol Direct HDL Cholesterol Urine pH Urine WBC (Auto) Urine Creatinine Urine Total Protein Fluid Total Protein Vancomycin Trough Rheumatoid Factor Complement C4 Miscellaneous Test Crossmatch 12/08/16 12/08/16 12/09/16 11:45 18:00 00:00 WBC RBC Hgb Hct MCV MCH MCHC RDW Plt Count Lymph % (Auto) [place] % (Auto) Lymph # [place] # Baso # Seg Neutrophils % Seg Neuts % (Manual) Lymphocytes % (Manual) Monocytes % (Manual) Eosinophils % (Manual) Basophils % (Manual) Nucleated RBC % Seg Neutrophils # Seg Neutrophils # Man Lymphocytes # (Manual) Monocytes # (Manual) Eosinophils # (Manual) PT INR Fibrinogen dRVVT Confirm Interp Factor V Activity POC ABG pH POC ABG pCO2 POC ABG pO2 ABG pO2 ABG HCO3 ABG Base Excess ABG Hemoglobin Oxyhemoglobin Sodium Potassium Chloride Carbon Dioxide BUN Creatinine Glucose POC Glucose 163 H 123 H 137 H Lactic Acid Calcium Phosphorus Magnesium Direct Bilirubin AST ALT Alkaline Phosphatase Lactate Dehydrogenase Troponin T C-Reactive Protein Total Protein Albumin Prealbumin Triglycerides Cholesterol LDL Cholesterol Direct HDL Cholesterol Urine pH Urine WBC (Auto) Urine Creatinine Urine Total Protein Fluid Total Protein Vancomycin Trough Rheumatoid Factor Complement C4 Miscellaneous Test Crossmatch 12/09/16 12/09/16 12/09/16 05:34 06:00 06:00 WBC 15.5 H RBC 2.87 L Hgb 8.0 L Hct 24.2 L MCV MCH MCHC RDW 17.2 H Plt Count Lymph % (Auto) [place] % (Auto) 11.6 H Lymph # [place] # 1.8 H Baso # Seg Neutrophils % 70.8 H Seg Neuts % (Manual) Lymphocytes % (Manual) Monocytes % (Manual) Eosinophils % (Manual) Basophils % (Manual) Nucleated RBC % Seg Neutrophils # 11.0 H Seg Neutrophils # Man Lymphocytes # (Manual) Monocytes # (Manual) Eosinophils # (Manual) PT INR Fibrinogen dRVVT Confirm Interp Factor V Activity POC ABG pH POC ABG pCO2 POC ABG pO2 ABG pO2 ABG HCO3 ABG Base Excess ABG Hemoglobin Oxyhemoglobin Sodium Potassium Chloride Carbon Dioxide BUN 51 H Creatinine Glucose 117 H POC Glucose 136 H Lactic Acid Calcium Phosphorus Magnesium Direct Bilirubin AST ALT Alkaline Phosphatase Lactate Dehydrogenase Troponin T C-Reactive Protein Total Protein Albumin Prealbumin Triglycerides Cholesterol LDL Cholesterol Direct HDL Cholesterol Urine pH Urine WBC (Auto) Urine Creatinine Urine Total Protein Fluid Total Protein Vancomycin Trough Rheumatoid Factor Complement C4 Miscellaneous Test Crossmatch 12/09/16 12/09/16 12/09/16 12:29 17:52 23:10 WBC RBC Hgb Hct MCV MCH MCHC RDW Plt Count Lymph % (Auto) [place] % (Auto) Lymph # [place] # Baso # Seg Neutrophils % Seg Neuts % (Manual) Lymphocytes % (Manual) Monocytes % (Manual) Eosinophils % (Manual) Basophils % (Manual) Nucleated RBC % Seg Neutrophils # Seg Neutrophils # Man Lymphocytes # (Manual) Monocytes # (Manual) Eosinophils # (Manual) PT INR Fibrinogen dRVVT Confirm Interp Factor V Activity POC ABG pH POC ABG pCO2 POC ABG pO2 ABG pO2 ABG HCO3 ABG Base Excess ABG Hemoglobin Oxyhemoglobin Sodium Potassium Chloride Carbon Dioxide BUN Creatinine Glucose POC Glucose 139 H 140 H 129 H Lactic Acid Calcium Phosphorus Magnesium Direct Bilirubin AST ALT Alkaline Phosphatase Lactate Dehydrogenase Troponin T C-Reactive Protein Total Protein Albumin Prealbumin Triglycerides Cholesterol LDL Cholesterol Direct HDL Cholesterol Urine pH Urine WBC (Auto) Urine Creatinine Urine Total Protein Fluid Total Protein Vancomycin Trough Rheumatoid Factor Complement C4 Miscellaneous Test Crossmatch 12/10/16 12/10/16 12/10/16 05:00 05:00 06:54 WBC 15.7 H RBC 2.87 L Hgb 8.2 L Hct 24.4 L MCV MCH MCHC RDW 17.2 H Plt Count Lymph % (Auto) [place] % (Auto) 8.3 H Lymph # [place] # 1.3 H Baso # Seg Neutrophils % 72.8 H Seg Neuts % (Manual) Lymphocytes % (Manual) Monocytes % (Manual) Eosinophils % (Manual) Basophils % (Manual) Nucleated RBC % Seg Neutrophils # 11.4 H Seg Neutrophils # Man Lymphocytes # (Manual) Monocytes # (Manual) Eosinophils # (Manual) PT INR Fibrinogen dRVVT Confirm Interp Factor V Activity POC ABG pH POC ABG pCO2 POC ABG pO2 ABG pO2 ABG HCO3 ABG Base Excess ABG Hemoglobin Oxyhemoglobin Sodium Potassium Chloride Carbon Dioxide BUN 64 H Creatinine 1.4 H Glucose 134 H POC Glucose 154 H Lactic Acid Calcium Phosphorus Magnesium Direct Bilirubin AST ALT Alkaline Phosphatase Lactate Dehydrogenase Troponin T C-Reactive Protein Total Protein Albumin Prealbumin Triglycerides Cholesterol LDL Cholesterol Direct HDL Cholesterol Urine pH Urine WBC (Auto) Urine Creatinine Urine Total Protein Fluid Total Protein Vancomycin Trough Rheumatoid Factor Complement C4 Miscellaneous Test Crossmatch 12/10/16 12/10/16 12/10/16 11:58 17:29 23:52 WBC RBC Hgb Hct MCV MCH MCHC RDW Plt Count Lymph % (Auto) [place] % (Auto) Lymph # [place] # Baso # Seg Neutrophils % Seg Neuts % (Manual) Lymphocytes % (Manual) Monocytes % (Manual) Eosinophils % (Manual) Basophils % (Manual) Nucleated RBC % Seg Neutrophils # Seg Neutrophils # Man Lymphocytes # (Manual) Monocytes # (Manual) Eosinophils # (Manual) PT INR Fibrinogen dRVVT Confirm Interp Factor V Activity POC ABG pH POC ABG pCO2 POC ABG pO2 ABG pO2 ABG HCO3 ABG Base Excess ABG Hemoglobin Oxyhemoglobin Sodium Potassium Chloride Carbon Dioxide BUN Creatinine Glucose POC Glucose 144 H 163 H 125 H Lactic Acid Calcium Phosphorus Magnesium Direct Bilirubin AST ALT Alkaline Phosphatase Lactate Dehydrogenase Troponin T C-Reactive Protein Total Protein Albumin Prealbumin Triglycerides Cholesterol LDL Cholesterol Direct HDL Cholesterol Urine pH Urine WBC (Auto) Urine Creatinine Urine Total Protein Fluid Total Protein Vancomycin Trough Rheumatoid Factor Complement C4 Miscellaneous Test Crossmatch 12/11/16 12/11/16 12/11/16 05:38 06:30 06:30 WBC 14.4 H RBC 2.76 L Hgb 7.7 L Hct 23.4 L MCV MCH MCHC RDW 17.2 H Plt Count Lymph % (Auto) [place] % (Auto) 8.8 H Lymph # [place] # 1.3 H Baso # Seg Neutrophils % 72.5 H Seg Neuts % (Manual) Lymphocytes % (Manual) Monocytes % (Manual) Eosinophils % (Manual) Basophils % (Manual) Nucleated RBC % Seg Neutrophils # 10.5 H Seg Neutrophils # Man Lymphocytes # (Manual) Monocytes # (Manual) Eosinophils # (Manual) PT INR Fibrinogen dRVVT Confirm Interp Factor V Activity POC ABG pH POC ABG pCO2 POC ABG pO2 ABG pO2 ABG HCO3 ABG Base Excess ABG Hemoglobin Oxyhemoglobin Sodium Potassium Chloride Carbon Dioxide BUN 43 H Creatinine Glucose 124 H POC Glucose 141 H Lactic Acid Calcium 8.3 L Phosphorus Magnesium 1.60 L Direct Bilirubin AST ALT Alkaline Phosphatase Lactate Dehydrogenase Troponin T C-Reactive Protein Total Protein Albumin Prealbumin Triglycerides Cholesterol LDL Cholesterol Direct HDL Cholesterol Urine pH Urine WBC (Auto) Urine Creatinine Urine Total Protein Fluid Total Protein Vancomycin Trough Rheumatoid Factor Complement C4 Miscellaneous Test Crossmatch 12/11/16 11:15 WBC RBC Hgb Hct MCV MCH MCHC RDW Plt Count Lymph % (Auto) [place] % (Auto) Lymph # [place] # Baso # Seg Neutrophils % Seg Neuts % (Manual) Lymphocytes % (Manual) Monocytes % (Manual) Eosinophils % (Manual) Basophils % (Manual) Nucleated RBC % Seg Neutrophils # Seg Neutrophils # Man Lymphocytes # (Manual) Monocytes # (Manual) Eosinophils # (Manual) PT INR Fibrinogen dRVVT Confirm Interp Factor V Activity POC ABG pH POC ABG pCO2 POC ABG pO2 ABG pO2 ABG HCO3 ABG Base Excess ABG Hemoglobin Oxyhemoglobin Sodium Potassium Chloride Carbon Dioxide BUN Creatinine Glucose POC Glucose 188 H Lactic Acid Calcium Phosphorus Magnesium Direct Bilirubin AST ALT Alkaline Phosphatase Lactate Dehydrogenase Troponin T C-Reactive Protein Total Protein Albumin Prealbumin Triglycerides Cholesterol LDL Cholesterol Direct HDL Cholesterol Urine pH Urine WBC (Auto) Urine Creatinine Urine Total Protein Fluid Total Protein Vancomycin Trough Rheumatoid Factor Complement C4 Miscellaneous Test Crossmatch Allied health notes reviewed: RT
[2016-12-11] MEDS ORDERED: TPN ADULT IV SCH (20:00)
[2016-12-12] MEDS: DUONEB *Not for PRN Use IH SCH ×4 (01:35→19:25)
[2016-12-12 05:34] LABS: Basophils # (Auto) 0.1 K/mm3 (0.0-0.1); Basophils % (Auto) 0.6 % (0.0-1.8); Eosinophils % (Auto) 0.3 % (0.0-4.3); Hematocrit 24.2 % (30.3-42.9); Lymphocytes # (Auto) 2.8 K/mm3 (1.2-5.4); Lymphocytes % (Auto) 16.6 % (13.4-35.0); Mean Corpuscular HGB Conc 33 % (30-34); Mean Corpuscular Hemoglobin 28 pg (28-32); Mean Corpuscular Volume 84 fl (79-97); Monocytes # (Auto) 1.2 K/mm3 (0.0-0.8); Monocytes % (Auto) 7.2 % (0.0-7.3); Platelet Count 312 K/mm3 (140-440); Red Blood Count 2.87 M/mm3 (3.65-5.03); Red Cell Distribution Width 17.6 % (13.2-15.2)
[2016-12-12] MEDS: LASIX IV SCH ×2 (06:27→18:51)
[2016-12-12] MEDS: LOPRESSOR PO SCH ×3 (06:28→18:51)
[2016-12-12] MEDS: APRESOLINE PO SCH ×3 (06:29→21:42)
[2016-12-12] MEDS: HumuLIN R SUB-Q SCH ×4 (06:29→18:52)
[2016-12-12] MEDS: HEPARIN SUB-Q SCH ×2 (09:51→21:43)
[2016-12-12] MEDS: PROTONIX FEEDTUBE SCH (09:51)
[2016-12-12] MEDS: ROBINUL PO SCH ×2 (09:51→21:42)
[2016-12-12] MEDS: NORVASC PO SCH (09:51)
--- NOTE | 2016-12-12 09:55 | Progress Note ---
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 appearance: Patient lying in bed, no apparent distress, 4. restraints HEENT: Normocephalic, atraumatic, pupils equally round and reactive to light, extraocular movement intact, and no sclericterus,. No JVD or thyromegaly or nodule,neck supple, no carotid bruit ,mucous membranes moist, unable to examine oral cavity Heart: S1, S2, regular rate and rhythm Lungs: Clear to auscultation bilaterally, breathing comfortable Abdomen: Positive bowel sounds, nontender, nondistended, no organomegaly Extremity: No edema, cyanosis, clubbing Skin: No rash, nodules, warm, dry Neuro: Difficult to assess, facial droop, moves all 4 extremities - Vital Signs Vital signs: Vital Signs - 12hr 12/11/16 12/11/16 12/11/16 22:00 22:40 22:46 Temperature Pulse Rate 108 H 109 H 114 H Pulse Rate [ Anterior Bilateral Throughout] Pulse Rate [ From Monitor] Pulse Rate [ Right Dorsalis Pedis] Respiratory 19 24 Rate Respiratory Rate [Anterior Bilateral Throughout] Blood Pressure 125/74 123/76 117/85 O2 Sat by Pulse 100 100 Oximetry O2 Sat by Pulse Oximetry [ Assessment] 12/11/16 12/11/16 12/11/16 23:00 23:03 23:21 Temperature Pulse Rate 103 H 102 H 101 H Pulse Rate [ Anterior Bilateral Throughout] Pulse Rate [ From Monitor] Pulse Rate [ Right Dorsalis Pedis] Respiratory 20 Rate Respiratory Rate [Anterior Bilateral Throughout] Blood Pressure 106/63 106/63 121/82 O2 Sat by Pulse 100 100 Oximetry O2 Sat by Pulse Oximetry [ Assessment] 12/12/16 12/12/16 12/12/16 00:00 01:00 01:35 Temperature 99.0 F Pulse Rate 100 H 97 H Pulse Rate [ 99 H Anterior Bilateral Throughout] Pulse Rate [ From Monitor] Pulse Rate [ Right Dorsalis Pedis] Respiratory 19 16 Rate Respiratory 18 Rate [Anterior Bilateral Throughout] Blood Pressure 115/70 101/58 O2 Sat by Pulse 100 100 Oximetry O2 Sat by Pulse Oximetry [ Assessment] 12/12/16 12/12/16 12/12/16 01:44 01:45 02:00 Temperature Pulse Rate 101 H Pulse Rate [ 100 H Anterior Bilateral Throughout] Pulse Rate [ From Monitor] Pulse Rate [ Right Dorsalis Pedis] Respiratory 20 Rate Respiratory 18 Rate [Anterior Bilateral Throughout] Blood Pressure 111/71 O2 Sat by Pulse 99 Oximetry O2 Sat by Pulse 100 Oximetry [ Assessment] 12/12/16 12/12/16 12/12/16 02:52 03:00 04:00 Temperature 98.9 F Pulse Rate 101 H 102 H 105 H Pulse Rate [ Anterior Bilateral Throughout] Pulse Rate [ 105 H From Monitor] Pulse Rate [ 105 H Right Dorsalis Pedis] Respiratory 17 20 Rate Respiratory Rate [Anterior Bilateral Throughout] Blood Pressure 104/62 120/77 130/82 O2 Sat by Pulse 100 100 100 Oximetry O2 Sat by Pulse Oximetry [ Assessment] 12/12/16 12/12/16 12/12/16 05:00 06:00 06:28 Temperature Pulse Rate 105 H 99 H 102 H Pulse Rate [ Anterior Bilateral Throughout] Pulse Rate [ From Monitor] Pulse Rate [ Right Dorsalis Pedis] Respiratory 22 19 Rate Respiratory Rate [Anterior Bilateral Throughout] Blood Pressure 134/83 105/67 116/76 O2 Sat by Pulse 98 100 Oximetry O2 Sat by Pulse Oximetry [ Assessment] 12/12/16 12/12/16 12/12/16 06:29 07:00 07:57 Temperature Pulse Rate 100 H 96 H Pulse Rate [ Anterior Bilateral Throughout] Pulse Rate [ 90 From Monitor] Pulse Rate [ Right Dorsalis Pedis] Respiratory 16 Rate Respiratory Rate [Anterior Bilateral Throughout] Blood Pressure 116/76 116/81 O2 Sat by Pulse 100 100 Oximetry O2 Sat by Pulse Oximetry [ Assessment] 12/12/16 12/12/16 12/12/16 08:00 09:24 09:41 Temperature 98.4 F Pulse Rate 91 H 92 H 95 H Pulse Rate [ 92 H 97 H Anterior Bilateral Throughout] Pulse Rate [ From Monitor] Pulse Rate [ Right Dorsalis Pedis] Respiratory 19 30 H Rate Respiratory 16 29 H Rate [Anterior Bilateral Throughout] Blood Pressure 118/80 111/76 119/76 O2 Sat by Pulse 100 100 100 Oximetry O2 Sat by Pulse 99 Oximetry [ Assessment] 12/12/16 09:51 Temperature Pulse Rate 95 H Pulse Rate [ Anterior Bilateral Throughout] Pulse Rate [ From Monitor] Pulse Rate [ Right Dorsalis Pedis] Respiratory Rate Respiratory Rate [Anterior Bilateral Throughout] Blood Pressure 124/83 O2 Sat by Pulse Oximetry O2 Sat by Pulse Oximetry [ Assessment] - Lab 12/12/16 05:00 12/12/16 Unknown Most recent lab results ABG pH 7.450 pH Units (7.350-7.450) 12/05/16 Unknown ABG pCO2 29.6 mm Hg 12/05/16 Unknown ABG pO2 75.2 mm Hg (80.0-90.0) L 12/05/16 Unknown ABG HCO3 20.1 mmol/L (20.0-26.0) 12/05/16 Unknown ABG O2 Saturation 96.8 % (95.0-99.0) 12/05/16 Unknown Calcium 9.0 mg/dL (8.4-10.2) 12/12/16 Unknown Phosphorus 3.60 mg/dL (2.5-4.5) D 12/12/16 Unknown Magnesium 1.90 mg/dL (1.7-2.3) 12/12/16 Unknown Urine Creatinine 19.7 mg/dL (0.1-20.0) 11/12/16 10:18 Urine Sodium 36 mEq/L 09/16/16 19:19 Urine Total Protein 16 mg/dL (5-11.8) H 09/16/16 19:19
--- NOTE | 2016-12-12 10:23 | Progress Note ---
Assessment and Plan Assessment and plan: Patient is 46-year-old woman with a history of hypertension, diabetes, asthma, hyperlipidemia, chronic kidney disease and anxiety , who was brought in by family because, she couldn't get her words out, her face was also twisted, she was admitted for acute CVA and accelerated hypertension, she had a hx of poor adherence with her medications, and uncontrolled htn. Patient's SBP on admission was noted be greater than 260. TPA was started but this was discontinued after 5 minutes because her blood pressure became uncontrolled. The TPA was not initiated again because the patient was outside the TPA window. Patient has had a prolonged hospital stay complicated with recurrent severe sepsis. Patient with most recent event also status post cardiac arrest on and received CPR. --Severe Sepsis with septic shock, recurrent. Patient with multiple episodes of sepsis. Initial episode due to presumed aspiration pneumonia and septic episode on 09/23 from candidemia then a third episode from peritonitis from gastric perforation from dislodged PEG +/-UTI. Patient was also noted to have had Candidemia with Blood cultures positive for Silvia albicans 09/23, 09/25 but negative on 09/30. Antibiotic discontinued on 12/05 per ID. patient is s/p R thoracentesis on 11/14, 240cc of serous fluid removed, cx of fluid was negative. Also, Stool negative for C. difficile --Surgical wound infection/gram-negative sepsis/candidemia/peritonitis. Continue wound care to ostomy sites --Acute hypoxic respiratory failure, status post tracheostomy Patient placed back on ventilation. Patient currently with CPAP mode. Patient failed T-piece trials. Tracheostomy tube leak. Pulmonary following --Acute massive CVA with mass effect; continue antiplatelets and statins CT showed continued evolution of left MCA infarct with slight mass effect and edema, and there is no hemorrhage -PRINCE showed hyperdynamic ventricle with ef of 75%, neither clot nor septal defect seen -MRA Brain shows near complete occlusion of M2 and M3 of the left MCA carotid doppler negative -Echo shows preserved systolic function but does show some left ventricular diastolic dysfunction -continue asa and statin --Oliguric acute kidney injury. Etiology secondary to ATN on CKD. Baseline creatinine is approximately 1.7. --Paroxysmal atrial fibrillation with rapid ventricular rate, failed cardioversion Continue current medications, Not a candidate for anticoagulation secondary to anemia, thrombocytopenia and massive CVA --Anemia; probably secondary to GI bleeding Patient received multiple units of PRBC in the past, hemoglobin currently stable re-consult GI if needed Recheck Hemoccult stool -Toxic metabolic encephalopathy; supportive care --Diabetes mellitus type 2, Insulin/SSI --Severe protein caloric malnutrition, cont TPN --s/p Thrombocytopenia. Now resolved --DVT prophylaxis, SCDs, no pharmacological agent given anemia , thrombocytopenia, massive stroke --Full code status, very poor prognosis Dispo. Very poor prognosis has been explained by the hospitalist group and the [facility] mason but the family currently refusing hospice evaluation. The family would like to continue aggressive care. The high probability of a clinically significant, sudden or life threatening deterioration of the [respiratory, GI, immunological and cardiovascular] system( s) required my full and direct attention, intervention and personal management. The aggregate critical care time was [31] minutes. This time is in addition to time spent performing reported procedures but includes the following: [x] Data Review and interpretation [x] Patient assessment and monitoring of vital signs [x] Documentation [x] Medication orders and management History Interval history: No new issues overnight. Hospitalist Physical - Constitutional Vitals: Temp Pulse Resp BP Pulse Ox 98.4 F 95 H 29 H 124/83 99 12/12/16 08:00 12/12/16 09:51 12/12/16 09:41 12/12/16 09:51 12/12/16 09:41 General appearance: Present: no acute distress - EENT Eyes: Present: PERRL, EOM intact ENT: hearing intact, clear oral mucosa, dentition normal - Neck Neck: Present: supple, normal ROM - Respiratory Respiratory effort: normal Respiratory: bilateral: CTA - Cardiovascular Rhythm: regular Heart Sounds: Present: S1 & S2. Absent: gallop, rub - Extremities Extremities: no ischemia, No edema, Full ROM - Abdominal General gastrointestinal: soft, non-tender, non-distended, normal bowel sounds - Integumentary Integumentary: Present: clear, warm, dry - Neurologic Neurologic: CNII-XII intact, moves all extremities Results - Labs CBC & Chem 7: 12/12/16 05:00 12/12/16 Unknown Labs: Laboratory Last Values WBC 16.7 K/mm3 (4.5-11.0) H 12/12/16 05:00 RBC 2.87 M/mm3 (3.65-5.03) L 10/23/17 05:00 Hgb 8.0 gm/dl (10.1-14.3) L 12/12/16 05:00 Hct 24.2 % (30.3-42.9) L 12/12/16 05:00 MCV 84 fl (79-97) 12/12/16 05:00 MCH 28 pg (28-32) 12/12/16 05:00 MCHC 33 % (30-34) 12/12/16 05:00 RDW 17.6 % (13.2-15.2) H 12/12/16 05:00 Plt Count 312 K/mm3 (140-440) 12/12/16 05:00 Lymph % (Auto) 16.6 % (13.4-35.0) 12/12/16 05:00 [place] % (Auto) 7.2 % (0.0-7.3) 12/12/16 05:00 Eos % (Auto) 0.3 % (0.0-4.3) 12/12/16 05:00 Baso % (Auto) 0.6 % (0.0-1.8) 12/12/16 05:00 Lymph # 2.8 K/mm3 (1.2-5.4) 12/12/16 05:00 Dodge # 1.2 K/mm3 (0.0-0.8) H 12/12/16 05:00 Eos # 0.0 K/mm3 (0.0-0.4) 12/12/16 05:00 Baso # 0.1 K/mm3 (0.0-0.1) 12/12/16 05:00 Add Manual Diff Complete 12/08/16 05:30 Total Counted 100 12/08/16 05:30 Seg Neutrophils % 75.3 % (40.0-70.0) H 12/12/16 05:00 Seg Neuts % (Manual) 76.0 % (40.0-70.0) H 12/08/16 05:30 Band Neutrophils % 6.0 % 12/08/16 05:30 Lymphocytes % (Manual) 9.0 % (13.4-35.0) L 12/08/16 05:30 Reactive Lymphs % (Man) 0 % 12/08/16 05:30 Monocytes % (Manual) 9.0 % (0.0-7.3) H 12/08/16 05:30 Eosinophils % (Manual) 0 % (0.0-4.3) 12/08/16 05:30 Basophils % (Manual) 0 % (0.0-1.8) 12/08/16 05:30 Metamyelocytes % 0 % 12/08/16 05:30 Myelocytes % 0 % 12/08/16 05:30 Promyelocytes % 0 % 12/08/16 05:30 Blast Cells % 0 % 12/08/16 05:30 Nucleated RBC % Not Reportable 12/08/16 05:30 Seg Neutrophils # 12.6 K/mm3 (1.8-7.7) H 12/12/16 05:00 Seg Neutrophils # Man 18.1 K/mm3 (1.8-7.7) H 12/08/16 05:30 Band Neutrophils # 1.4 K/mm3 12/08/16 05:30 Lymphocytes # (Manual) 2.1 K/mm3 (1.2-5.4) 12/08/16 05:30 Abs React Lymphs (Man) 0.0 K/mm3 12/08/16 05:30 Monocytes # (Manual) 2.1 K/mm3 (0.0-0.8) H 12/08/16 05:30 Eosinophils # (Manual) 0.0 K/mm3 (0.0-0.4) 12/08/16 05:30 Basophils # (Manual) 0.0 K/mm3 (0.0-0.1) 12/08/16 05:30 Metamyelocytes # 0.0 K/mm3 12/08/16 05:30 Myelocytes # 0.0 K/mm3 12/08/16 05:30 Promyelocytes # 0.0 K/mm3 12/08/16 05:30 Blast Cells # 0.0 K/mm3 12/08/16 05:30 Pathologist Review 09/13/16 04:00 WBC Morphology Not Reportable 12/08/16 05:30 Hypersegmented Neuts Not Reportable 12/08/16 05:30 Hyposegmented Neuts Not Reportable 12/08/16 05:30 Hypogranular Neuts Not Reportable 12/08/16 05:30 Smudge Cells Not Reportable 12/08/16 05:30 Toxic Granulation Not Reportable 12/08/16 05:30 Toxic Vacuolation Not Reportable 12/08/16 05:30 Dohle Bodies Not Reportable 12/08/16 05:30 Pelger-Huet Anomaly Not Reportable 12/08/16 05:30 Jasmina Rods Not Reportable 12/08/16 05:30 Platelet Estimate Appears normal 12/08/16 05:30 Clumped Platelets Not Reportable 12/08/16 05:30 Plt Clumps, EDTA Not Reportable 12/08/16 05:30 Large Platelets Not Reportable 12/08/16 05:30 Giant Platelets Not Reportable 12/08/16 05:30 Platelet Satelliting Not Reportable 12/08/16 05:30 Plt Morphology Comment Not Reportable 12/08/16 05:30 RBC Morphology Not Reportable 12/08/16 05:30 Dimorphic RBCs Not Reportable 12/08/16 05:30 Polychromasia Not Reportable 12/08/16 05:30 Hypochromasia Few 12/08/16 05:30 Poikilocytosis Not Reportable 12/08/16 05:30 Anisocytosis 1+ 12/08/16 05:30 Microcytosis Few 12/08/16 05:30 Macrocytosis Not Reportable 12/08/16 05:30 Spherocytes Not Reportable 12/08/16 05:30 Pappenheimer Bodies Not Reportable 12/08/16 05:30 Sickle Cells Not Reportable 12/08/16 05:30 Target Cells Not Reportable 12/08/16 05:30 Tear Drop Cells Not Reportable 12/08/16 05:30 Ovalocytes 1+ 12/08/16 05:30 Stomatocytes Rare 12/03/16 04:00 Helmet Cells Not Reportable 12/08/16 05:30 [place] Bodies Not Reportable 12/08/16 05:30 [place] Rings Not Reportable 12/08/16 05:30 Chuck Cells Rare 12/08/16 05:30 Bite Cells Not Reportable 12/08/16 05:30 Crenated Cell Not Reportable 12/08/16 05:30 Elliptocytes Not Reportable 12/08/16 05:30 Acanthocytes (Spur) Not Reportable 12/08/16 05:30 Rouleaux Not Reportable 12/08/16 05:30 Hemoglobin C Crystals Not Reportable 12/08/16 05:30 Schistocytes Not Reportable 12/08/16 05:30 Malaria parasites Not Reportable 12/08/16 05:30 ESR > 140.0 mm/Hr (0-20) 09/08/16 11:48 Jun Bodies Not Reportable 12/08/16 05:30 Hem Pathologist Commnt No 12/08/16 05:30 PT 16.8 Sec. (12.2-14.9) H 11/17/16 03:20 INR 1.37 (0.87-1.13) H 11/17/16 03:20 APTT 33.0 Sec. (24.2-36.6) 10/09/16 03:45 Thrombin Time 16.8 Sec. (15.1-19.6) 09/03/16 00:10 Fibrinogen 750 mg/dl (211-480) H 09/08/16 11:48 Lupus Anticoagulant see below 09/12/16 09:59 LA PTT Baseline See scanned report 09/12/16 09:59 dRVVT Confirm Interp Positive (Negative) H 09/12/16 09:59 dRVVT Screen 50:50 See scanned report 09/12/16 09:59 dRVVT Mix Interpret See scanned report 09/12/16 09:59 Protein C Antigen 122 % (70-140) 09/08/16 15:35 Free Protein S 97 % normal (50-147) 09/08/16 15:35 Total Protein S 109 % (70-140) 09/08/16 15:35 Antithrombin III Ag 100 % (80-120) 09/08/16 15:35 Heparin Anti-Xa, Unfract Negative (Negative) 09/29/16 13:35 Factor V Activity 182 % (65-150) H 09/08/16 15:35 POC ABG pH 7.487 (7.35-7.45) H 11/25/16 14:12 ABG pH 7.450 pH Units (7.350-7.450) 12/05/16 Unknown POC ABG pCO2 39.0 (35-45) 11/25/16 14:12 ABG pCO2 29.6 mm Hg 12/05/16 Unknown POC ABG pO2 153 (80-105) H 11/25/16 14:12 ABG pO2 75.2 mm Hg (80.0-90.0) L 12/05/16 Unknown POC ABG HCO3 29.5 11/25/16 14:12 ABG HCO3 20.1 mmol/L (20.0-26.0) 12/05/16 Unknown POC ABG Total CO2 31 11/25/16 14:12 POC ABG O2 Sat 99 11/25/16 14:12 ABG O2 Saturation 96.8 % (95.0-99.0) 12/05/16 Unknown ABG O2 Content 9.9 (0.0-44) 12/05/16 Unknown POC ABG Base Excess 6 11/25/16 14:12 ABG Base Excess -3.4 mmol/L (-2.0-3.0) L 12/05/16 Unknown ABG Hemoglobin 7.4 gm/dl (12.0-16.0) L 12/05/16 Unknown ABG Carboxyhemoglobin 1.8 % (0.0-5.0) 12/05/16 Unknown ABG Methemoglobin 0.6 % (0.0-1.5) 12/05/16 Unknown Oxyhemoglobin 94.5 % (95.0-99.0) L 12/05/16 Unknown FiO2 30 % 12/05/16 Unknown Sodium 141 mmol/L (137-145) 12/12/16 Unknown Potassium 4.1 mmol/L (3.6-5.0) 12/12/16 Unknown Chloride 100.5 mmol/L (98-107) 12/12/16 Unknown Carbon Dioxide 26 mmol/L (22-30) 12/12/16 Unknown Anion Gap 19 mmol/L 12/12/16 Unknown BUN 60 mg/dL (7-17) H 12/12/16 Unknown Creatinine 1.3 mg/dL (0.7-1.2) H 12/12/16 Unknown Estimated GFR 54 ml/min 12/12/16 Unknown BUN/Creatinine Ratio 46 % 12/12/16 Unknown Glucose 126 mg/dL (65-100) H 12/12/16 Unknown POC Glucose 134 (70-105) H 12/12/16 06:01 Osmolality 351 Mosm/kg 09/16/16 11:47 Lactic Acid 4.50 mmol/L (0.7-2.0) H* 09/28/16 07:25 Calcium 9.0 mg/dL (8.4-10.2) 12/12/16 Unknown Phosphorus 3.60 mg/dL (2.5-4.5) D 12/12/16 Unknown Magnesium 1.90 mg/dL (1.7-2.3) 12/12/16 Unknown Total Bilirubin 0.20 mg/dL (0.1-1.2) 12/04/16 04:00 Direct Bilirubin 0.3 mg/dL (0-0.2) H 10/10/16 05:00 Indirect Bilirubin 0.1 mg/dL 10/10/16 05:00 AST 29 units/L (5-40) 12/04/16 04:00 ALT 43 units/L (7-56) 12/04/16 04:00 Alkaline Phosphatase 155 units/L (35-129) H 12/04/16 04:00 Ammonia 27.0 umol/L (25-60) 09/07/16 08:37 Lactate Dehydrogenase 196 units/L (91-180) H 11/11/16 06:59 Total Creatine Kinase 121 units/L (30-135) 09/29/16 20:12 CK-MB (CK-2) < 1.0 ng/mL (0.0-4.0) 09/29/16 20:12 CK-MB (CK-2) Rel Index 0.8 (0-4) 09/29/16 20:12 Troponin T 0.204 ng/mL (0.00-0.029) H* 09/29/16 20:12 C-Reactive Protein 19.30 mg/dL (0.00-1.30) H 12/05/16 05:00 Total Protein 5.5 g/dL (6.3-8.2) L 12/04/16 04:00 Albumin 1.5 g/dL (3.9-5) L 12/04/16 04:00 Albumin/Globulin Ratio 0.4 % 12/04/16 04:00 Prealbumin 0.180 g/L (0.200-0.400) L 11/06/16 06:25 Triglycerides 137 mg/dL (2-149) 09/29/16 20:12 Cholesterol 31 mg/dL (50-199) L 09/29/16 20:12 LDL Cholesterol Direct 4 mg/dL (50-130) L 09/29/16 20:12 HDL Cholesterol 3 mg/dL (40-59) L 09/29/16 20:12 Cholesterol/HDL Ratio 10.33 % 09/29/16 20:12 Angiotensin Convert Enz See scanned report 09/08/16 11:48 Renin 0.99 ng/mL/h (0.25-5.82) 10/07/16 10:56 Aldosterone <1 ng/dL () 10/07/16 10:56 Aldosterone/Renin Dir see below 10/07/16 10:56 Serotonin Release Assay See scanned report 09/29/16 13:35 TSH 1.010 mlU/mL (0.270-4.200) 09/07/16 08:37 HCG, Qual Negative (Negative) 09/03/16 00:10 Urine Color Yellow (Yellow) 11/05/16 13:09 Urine Turbidity Clear (Clear) 11/05/16 13:09 Urine pH 9.0 (5.0-7.0) H 11/05/16 13:09 Ur Specific [place] 1.011 (1.003-1.030) 11/05/16 13:09 Urine Protein 100 mg/dl mg/dL (Negative) 11/05/16 13:09 Urine Glucose (UA) Neg mg/dL (Negative) 11/05/16 13:09 Urine Ketones Neg mg/dL (Negative) 11/05/16 13:09 Urine Blood Neg (Negative) 11/05/16 13:09 Urine Nitrite Neg (Negative) 11/05/16 13:09 Urine Bilirubin Neg (Negative) 11/05/16 13:09 Urine Urobilinogen < 2.0 mg/dL (<2.0) 11/05/16 13:09 Ur Leukocyte Esterase Neg (Negative) 11/05/16 13:09 Urine WBC (Auto) 4.0 /HPF (0.0-6.0) 11/05/16 13:09 Urine RBC (Auto) 1.0 /HPF (0.0-6.0) 11/05/16 13:09 U Epithel Cells (Auto) 1.0 /HPF (0-13.0) 10/07/16 18:30 Urine Bacteria (Auto) 4+ /HPF (Negative) 11/05/16 13:09 Urine WBC Clumps 2+ /HPF 09/07/16 02:47 Hyaline Casts 4 /LPF 09/07/16 02:47 Urine Mucus Few /HPF 10/07/16 18:30 Urine Yeast (Budding) 3+ /HPF 10/07/16 18:30 Urine Eosinophils None seen (None Seen) 09/07/16 16:00 Urine Total Volume 950 11/12/16 10:18 Urine Creatinine 19.7 mg/dL (0.1-20.0) 11/12/16 10:18 Height (in) 65.0 inches 11/12/16 10:18 Weight (lb) 181.0 lbs 11/12/16 10:18 Creatinine Clearance 5 11/12/16 10:18 Urine Sodium 36 mEq/L 09/16/16 19:19 Urine Total Protein 16 mg/dL (5-11.8) H 09/16/16 19:19 Fluid Total Protein < 3.0 (15.0-45.0) L 11/10/16 14:20 Fluid LDH 123 11/10/16 14:20 Vancomycin Trough 2.3 ug/mL (5.0-20.0) L 09/21/16 13:00 Random Vancomycin 16.5 ug/mL (0-40.0) 11/28/16 09:45 Urine Opiates Screen Presumptive negative 09/03/16 15:11 Urine Methadone Screen Presumptive positive 09/03/16 15:11 Ur Barbiturates Screen Presumptive positive 09/03/16 15:11 Ur Phencyclidine Scrn Presumptive negative 09/03/16 15:11 Ur Amphetamines Screen Presumptive negative 09/03/16 15:11 U Benzodiazepines Scrn Presumptive negative 09/03/16 15:11 Urine Cocaine Screen Presumptive negative 09/03/16 15:11 U Marijuana (THC) Screen Presumptive positive 09/03/16 15:11 Drugs of Abuse Note Disclamer 09/03/16 15:11 Rheumatoid Factor 24 IU/ml (0-13) H 09/08/16 11:48 SAHIL Screen Negative (Negative) 09/07/16 09:20 Proteinase 3 (PR3) Ab <1.0 AI (<1.0) 09/07/16 09:20 Myeloperoxidase Ab <1.0 AI (<1.0) 09/07/16 09:20 Sjogren's Antibody <1.0 AI (<1.0) 09/08/16 15:35 Scl-70 Scleroderma Ab <1.0 AI (<1.0) 09/08/16 15:35 Centromere B Antibody <1.0 AI (<1.0) 09/08/16 12:02 Heparin-induced Plt Ab Negative (Negative) 09/29/16 13:35 UF Heparin High Dose 11 % Release 09/29/16 13:35 SUDHIR UFH Low Dose 0.1 6 % Release 09/29/16 13:35 SUDHIR UFH Low Dose 0.5 8 % Release 09/29/16 13:35 Cardiolipid IgG Ab <14 GPL (<=14) 09/12/16 09:59 Cardiolipid IgA Ab <11 APL (<=11) 09/12/16 09:59 Cardiolipid IgM Ab <12 MPL (<=12) 09/12/16 09:59 Complement C3 148 mg/dL (90-180) 09/07/16 09:20 Complement C4 58 mg/dL (16-47) H 09/07/16 09:20 RPR Nonreactive (Nonreactive) 09/08/16 11:48 Hepatitis A IgM Ab Non-reactive (NonReactive) 09/24/16 14:40 Hep Bs Antigen Non-reactive (Negative) 09/24/16 14:40 Hep B Core IgM Ab Non-reactive (NonReactive) 09/24/16 14:40 Hepatitis C Antibody Non-reactive (NonReactive) 09/24/16 14:40 HIV 1&2 Antibody Rapid Non react (Non React) 09/08/16 11:48 HIV P24 Antigen Non react (Non React) 09/08/16 11:48 Miscellaneous Test Flexitest 1 H 11/05/16 13:25 Blood Type A POSITIVE 12/07/16 09:45 Antibody Screen Negative 12/07/16 09:45 DELORIS Antibody Screen Negative 11/24/16 11:20 Crossmatch See Detail 12/07/16 09:45
--- NOTE | 2016-12-12 10:26 | Progress Note ---
Assessment and Plan Assessment and Plan 46-year-old woman with a history of hypertension, diabetes, asthma, hyperlipidemia, chronic kidney disease and anxiety , who was brought in by family because, she couldn't get her words out, her face was also twisted, she was admitted for acute CVA and accelerated hypertension, she had a hx of poor adherence with her medications, and uncontrolled htn. Patient's SBP on admission was noted be greater than 260. TPA was started but this was discontinued after 5 minutes because her blood pressure became uncontrolled. The TPA was not initiated again because the patient was outside the TPA window. Leukocytosis CT abdomen done post code to evaluate for worsening leukocytosis.... probable fistula sp R thoracentesis on 11/14, 240cc of serous fluid removed, cx of fluid was negative Intra abdominal fistula ID following -Severe Sepsis with septic shock, recurrent. Patient with multiple episodes of sepsis. Initial episode due to presumed aspiration pneumonia and septic episode on 09/23 from candidemia then a third episode from peritonitis from gastric perforation from dislodged PEG , there was an abscess in the abdomen present at that time that was draining pus. +/-UTI. Surgical wound infection/gram-negative sepsis/candidemia/peritonitis -TPN for nutritional support -Promotility agents today, monitor response. No further episodes of vomiting this morning -continue wound care to ostomy sites JUANITA, now ESRD Likely due to vasomotor nephropathy and ATN given sepsis Nephrology input appreciated Acute CVA with infarct. sp TPA Continue neuro checks. Neurology input appreciated, CT shows continued evolution of left MCA infarct with slight mass effect and edema, and there is no hemorrhage - PRINCE showed hyperdynamic with ef of 75%, neither clot nor septal defect seen - MRA Brain shows near complete occlusion of M2 and M3 of the left MCA - Repeat CT scan done on 09/11, shows stable findings - carotid doppler negative - Echo shows preserved systolic function but does show some left ventricular diastolic dysfunction - continue asa and statin for secondary ppx Paroxysmal atrial fibrillation. On Metoprolol Persistent vegetative state This patient's needs placement at either hospice or SNF -She was denied for LTACH Acute hypoxic respiratory failure requiring MV >96hrs Status post tracheostomy, back on full mechanical ventilatory support s/p PEA arrest with ROSC. VAP bundle addressed. Continue with daily SBTs as tolerated VTE prophylaxis Stress ulcer prophylaxis Aspiration precautions HOB>40 Nosocomial acquired aspiration pneumonia/sepsis/UTI She had completed a course of antibiotics. Now on Cefepime and Vanco for fever Asthma/COPD exacerbation Now has trach Acute Toxic Metabolic encephalopathy. Multitifactorial, mostly secondary to evolution of CVA Hypertensive Emergency Now on Metoprolol, Cozaar,Hydralazine, Clonidine patch. Bilateral pleural effusion, s/p right thoracentesis Paroxysmal atrial fibrillation with rapid ventricular rate, failed cardioversion Continue current medications, Not a candidate for anticoagulation secondary to anemia, thrombocytopenia, and massive CVA Hypokalemia/Hypomagnesemia/hypophosphatemia. Replete electrolytes as needed. Diabetes type 2. Continue sliding-scale regular insulin and Accu-Cheks. Hyperlipidemia. Continue statin Nutrition continue tube feeds Anemia requiring multiple transfusions/acute blood loss Has received total 13 units of PRBC this admission. Will continue to transfuse to keep Hemoglobin above 7 Her POA is her Brother, Jam [phone] Disposition. Very poor prognosis. - Patient Problems (1) Acute respiratory failure with hypoxia Current Visit: Yes Status: Acute (2) Acute blood loss anemia Current Visit: Yes Status: Resolved (3) Acute CVA (cerebrovascular accident) Current Visit: Yes Status: Acute (4) Chronic renal insufficiency Current Visit: Yes Status: Acute Qualifiers: Chronic kidney disease stage: C (5) Uncontrolled hypertension Current Visit: Yes Status: Acute (6) Leukocytosis (leucocytosis) Current Visit: Yes Status: Acute Qualifiers: Leukocytosis type: leukemoid reaction Qualified Code(s): D72.823 - Leukemoid reaction (7) Dislodged gastrostomy tube Current Visit: Yes Status: Acute (8) Fungemia Current Visit: Yes Status: Resolved Subjective Date of service: 12/12/16 Principal diagnosis: Acute resp failure on MVS; S/P Acute CVA; Acute Encephalopathy; JUANITA Interval history: Seen and examined. Vitals, labs, medications, chart reviewed. On mechanical ventilatory support Vomiting as per RN. Tolerating CPAP /, tidal volumes of 300. Not tolerating T-piece trials Discussed in interdisciplinary rounds Objective - Exam Narrative Exam: Gen. appearance: Patient lying in bed, no apparent distress, Spontaneously opens her eyes s/p trach to vent, no dyscynchrony PS 12/5 HEENT: Normocephalic, atraumatic, pupils equally round and reactive to light, extraocular movement intact, and no sclericterus,. No JVD or thyromegaly or nodule,neck supple, no carotid bruit ,mucous membranes moist, unable to examine oral cavity Heart: S1, S2, regular rate and rhythm Lungs: Clear to auscultation bilaterally, breathing comfortable Abdomen: Positive bowel sounds, non tender, non distended, no organomegaly drains attached to stoma. Firm with distant bowel sounds Extremity: No edema, cyanosis, clubbing Neuro: Not obeying any commands Vital Signs - 12hr 12/11/16 12/11/16 12/11/16 22:40 22:46 23:00 Temperature Pulse Rate 109 H 114 H 103 H Pulse Rate [ Anterior Bilateral Throughout] Pulse Rate [ From Monitor] Pulse Rate [ Right Dorsalis Pedis] Respiratory 24 20 Rate Respiratory Rate [Anterior Bilateral Throughout] Blood Pressure 123/76 117/85 106/63 O2 Sat by Pulse 100 100 Oximetry O2 Sat by Pulse Oximetry [ Assessment] 12/11/16 12/11/16 12/12/16 23:03 23:21 00:00 Temperature 99.0 F Pulse Rate 102 H 101 H 100 H Pulse Rate [ Anterior Bilateral Throughout] Pulse Rate [ From Monitor] Pulse Rate [ Right Dorsalis Pedis] Respiratory 19 Rate Respiratory Rate [Anterior Bilateral Throughout] Blood Pressure 106/63 121/82 115/70 O2 Sat by Pulse 100 100 Oximetry O2 Sat by Pulse Oximetry [ Assessment] 12/12/16 12/12/16 12/12/16 01:00 01:35 01:44 Temperature Pulse Rate 97 H Pulse Rate [ 99 H Anterior Bilateral Throughout] Pulse Rate [ From Monitor] Pulse Rate [ Right Dorsalis Pedis] Respiratory 16 Rate Respiratory 18 Rate [Anterior Bilateral Throughout] Blood Pressure 101/58 O2 Sat by Pulse 100 Oximetry O2 Sat by Pulse 100 Oximetry [ Assessment] 12/12/16 12/12/16 12/12/16 01:45 02:00 02:52 Temperature Pulse Rate 101 H 101 H Pulse Rate [ 100 H Anterior Bilateral Throughout] Pulse Rate [ From Monitor] Pulse Rate [ Right Dorsalis Pedis] Respiratory 20 Rate Respiratory 18 Rate [Anterior Bilateral Throughout] Blood Pressure 111/71 104/62 O2 Sat by Pulse 99 100 Oximetry O2 Sat by Pulse Oximetry [ Assessment] 12/12/16 12/12/16 12/12/16 03:00 04:00 05:00 Temperature 98.9 F Pulse Rate 102 H 105 H 105 H Pulse Rate [ Anterior Bilateral Throughout] Pulse Rate [ 105 H From Monitor] Pulse Rate [ 105 H Right Dorsalis Pedis] Respiratory 17 20 22 Rate Respiratory Rate [Anterior Bilateral Throughout] Blood Pressure 120/77 130/82 134/83 O2 Sat by Pulse 100 100 98 Oximetry O2 Sat by Pulse Oximetry [ Assessment] 12/12/16 12/12/16 12/12/16 06:00 06:28 06:29 Temperature Pulse Rate 99 H 102 H 100 H Pulse Rate [ Anterior Bilateral Throughout] Pulse Rate [ From Monitor] Pulse Rate [ Right Dorsalis Pedis] Respiratory 19 Rate Respiratory Rate [Anterior Bilateral Throughout] Blood Pressure 105/67 116/76 116/76 O2 Sat by Pulse 100 Oximetry O2 Sat by Pulse Oximetry [ Assessment] 12/12/16 12/12/16 12/12/16 07:00 07:57 08:00 Temperature 98.4 F Pulse Rate 96 H 91 H Pulse Rate [ Anterior Bilateral Throughout] Pulse Rate [ 90 From Monitor] Pulse Rate [ Right Dorsalis Pedis] Respiratory 16 19 Rate Respiratory Rate [Anterior Bilateral Throughout] Blood Pressure 116/81 118/80 O2 Sat by Pulse 100 100 100 Oximetry O2 Sat by Pulse Oximetry [ Assessment] 12/12/16 12/12/16 12/12/16 09:24 09:41 09:51 Temperature Pulse Rate 92 H 95 H 95 H Pulse Rate [ 92 H 97 H Anterior Bilateral Throughout] Pulse Rate [ From Monitor] Pulse Rate [ Right Dorsalis Pedis] Respiratory 30 H Rate Respiratory 16 29 H Rate [Anterior Bilateral Throughout] Blood Pressure 111/76 119/76 124/83 O2 Sat by Pulse 100 100 Oximetry O2 Sat by Pulse 99 Oximetry [ Assessment] Constitutional: appears uncomfortable, other (not tracking) Eyes: non-icteric, other (tracheostomy tube in midline of neck) ENT: oropharynx moist, oropharyngeal exudate pre Neck: supple, no lymphadenopathy, no JVD, other (no thyromegaly) Effort: mildly labored Ascultation: Left: diminished breath sounds (base), Bilateral: clear, rales, rhonchi (and referred upper airway sounds) Percussion: Left: dull (base), Bilateral: not dull Cardiovascular: regular rate and rhythm, other (no rubs / murmurs) Gastrointestinal: hypoactive bowel sounds, soft, non-tender, non-distended, other (RLQ & LUQ stomas with colostomy bags) Integumentary: other (no rash; no cellulitis; poor turgor) Extremities: no cyanosis, pulses normal, no ischemia or petechiae, edema (1+ bilaterally) Neurologic: pupils equal and round, unable to assess, other (encephalopathic) Psychiatric: other (unable to assess) CBC and BMP: 12/12/16 05:00 12/12/16 Unknown ABG, PT/INR, D-dimer: ABG POC ABG pH 7.487 (7.35-7.45) H 11/25/16 14:12 ABG pH 7.450 pH Units (7.350-7.450) 12/05/16 Unknown POC ABG pCO2 39.0 (35-45) 11/25/16 14:12 ABG pCO2 29.6 mm Hg 12/05/16 Unknown POC ABG pO2 153 (80-105) H 11/25/16 14:12 ABG pO2 75.2 mm Hg (80.0-90.0) L 12/05/16 Unknown POC ABG HCO3 29.5 11/25/16 14:12 POC ABG Total CO2 31 11/25/16 14:12 POC ABG O2 Sat 99 11/25/16 14:12 ABG O2 Saturation 96.8 % (95.0-99.0) 12/05/16 Unknown PT/INR, D-dimer PT 16.8 Sec. (12.2-14.9) H 11/17/16 03:20 INR 1.37 (0.87-1.13) H 11/17/16 03:20 Abnormal lab findings: Abnormal Labs 09/03/16 09/03/16 09/03/16 12:12 15:07 16:20 WBC RBC Hgb Hct MCV MCH MCHC RDW Plt Count Lymph % (Auto) [place] % (Auto) Lymph # [place] # Baso # Seg Neutrophils % Seg Neuts % (Manual) Lymphocytes % (Manual) Monocytes % (Manual) Eosinophils % (Manual) Basophils % (Manual) Nucleated RBC % Seg Neutrophils # Seg Neutrophils # Man Lymphocytes # (Manual) Monocytes # (Manual) Eosinophils # (Manual) PT INR Fibrinogen dRVVT Confirm Interp Factor V Activity POC ABG pH 7.452 H POC ABG pCO2 POC ABG pO2 ABG pO2 ABG HCO3 ABG Base Excess ABG Hemoglobin Oxyhemoglobin Sodium Potassium Chloride Carbon Dioxide BUN Creatinine Glucose POC Glucose 178 H Lactic Acid Calcium Phosphorus 2.20 L Magnesium 1.60 L Direct Bilirubin AST ALT Alkaline Phosphatase Lactate Dehydrogenase Troponin T C-Reactive Protein Total Protein Albumin Prealbumin Triglycerides Cholesterol LDL Cholesterol Direct HDL Cholesterol Urine pH Urine WBC (Auto) Urine Creatinine Urine Total Protein Fluid Total Protein Vancomycin Trough Rheumatoid Factor Complement C4 Miscellaneous Test Crossmatch 09/03/16 09/03/16 09/03/16 17:57 17:58 23:50 WBC RBC Hgb Hct MCV MCH MCHC RDW Plt Count Lymph % (Auto) [place] % (Auto) Lymph # [place] # Baso # Seg Neutrophils % Seg Neuts % (Manual) Lymphocytes % (Manual) Monocytes % (Manual) Eosinophils % (Manual) Basophils % (Manual) Nucleated RBC % Seg Neutrophils # Seg Neutrophils # Man Lymphocytes # (Manual) Monocytes # (Manual) Eosinophils # (Manual) PT INR Fibrinogen dRVVT Confirm Interp Factor V Activity POC ABG pH POC ABG pCO2 POC ABG pO2 ABG pO2 ABG HCO3 ABG Base Excess ABG Hemoglobin Oxyhemoglobin Sodium Potassium Chloride Carbon Dioxide BUN Creatinine Glucose POC Glucose 162 H 145 H Lactic Acid Calcium Phosphorus 2.30 L Magnesium Direct Bilirubin AST ALT Alkaline Phosphatase Lactate Dehydrogenase Troponin T C-Reactive Protein Total Protein Albumin Prealbumin Triglycerides Cholesterol LDL Cholesterol Direct HDL Cholesterol Urine pH Urine WBC (Auto) Urine Creatinine Urine Total Protein Fluid Total Protein Vancomycin Trough Rheumatoid Factor Complement C4 Miscellaneous Test Crossmatch 09/04/16 09/04/16 09/04/16 03:31 03:31 05:42 WBC RBC Hgb 9.7 L D Hct MCV 72 L MCH 23 L MCHC RDW 17.5 H Plt Count Lymph % (Auto) 11.1 L [place] % (Auto) Lymph # [place] # Baso # Seg Neutrophils % 84.3 H Seg Neuts % (Manual) Lymphocytes % (Manual) Monocytes % (Manual) Eosinophils % (Manual) Basophils % (Manual) Nucleated RBC % Seg Neutrophils # 8.9 H Seg Neutrophils # Man Lymphocytes # (Manual) Monocytes # (Manual) Eosinophils # (Manual) PT INR Fibrinogen dRVVT Confirm Interp Factor V Activity POC ABG pH POC ABG pCO2 POC ABG pO2 ABG pO2 ABG HCO3 ABG Base Excess ABG Hemoglobin Oxyhemoglobin Sodium 135 L Potassium 2.9 L* Chloride 97.2 L Carbon Dioxide 19 L BUN Creatinine 1.7 H Glucose 170 H POC Glucose 152 H Lactic Acid Calcium Phosphorus Magnesium Direct Bilirubin AST ALT Alkaline Phosphatase Lactate Dehydrogenase Troponin T C-Reactive Protein Total Protein Albumin Prealbumin Triglycerides 160 H Cholesterol LDL Cholesterol Direct HDL Cholesterol 31 L Urine pH Urine WBC (Auto) Urine Creatinine Urine Total Protein Fluid Total Protein Vancomycin Trough Rheumatoid Factor Complement C4 Miscellaneous Test Crossmatch 09/04/16 09/04/16 09/04/16 11:34 17:46 23:29 WBC RBC Hgb Hct MCV MCH MCHC RDW Plt Count Lymph % (Auto) [place] % (Auto) Lymph # [place] # Baso # Seg Neutrophils % Seg Neuts % (Manual) Lymphocytes % (Manual) Monocytes % (Manual) Eosinophils % (Manual) Basophils % (Manual) Nucleated RBC % Seg Neutrophils # Seg Neutrophils # Man Lymphocytes # (Manual) Monocytes # (Manual) Eosinophils # (Manual) PT INR Fibrinogen dRVVT Confirm Interp Factor V Activity POC ABG pH POC ABG pCO2 POC ABG pO2 ABG pO2 ABG HCO3 ABG Base Excess ABG Hemoglobin Oxyhemoglobin Sodium Potassium Chloride Carbon Dioxide BUN Creatinine Glucose POC Glucose 165 H 210 H 139 H Lactic Acid Calcium Phosphorus Magnesium Direct Bilirubin AST ALT Alkaline Phosphatase Lactate Dehydrogenase Troponin T C-Reactive Protein Total Protein Albumin Prealbumin Triglycerides Cholesterol LDL Cholesterol Direct HDL Cholesterol Urine pH Urine WBC (Auto) Urine Creatinine Urine Total Protein Fluid Total Protein Vancomycin Trough Rheumatoid Factor Complement C4 Miscellaneous Test Crossmatch 09/05/16 09/05/16 09/05/16 04:05 04:05 05:38 WBC RBC Hgb Hct MCV 76 L D MCH 23 L MCHC RDW 17.8 H Plt Count Lymph % (Auto) [place] % (Auto) Lymph # [place] # Baso # Seg Neutrophils % Seg Neuts % (Manual) Lymphocytes % (Manual) Monocytes % (Manual) Eosinophils % (Manual) Basophils % (Manual) Nucleated RBC % Seg Neutrophils # Seg Neutrophils # Man Lymphocytes # (Manual) Monocytes # (Manual) Eosinophils # (Manual) PT INR Fibrinogen dRVVT Confirm Interp Factor V Activity POC ABG pH POC ABG pCO2 POC ABG pO2 ABG pO2 ABG HCO3 ABG Base Excess ABG Hemoglobin Oxyhemoglobin Sodium 134 L Potassium Chloride Carbon Dioxide 18 L BUN Creatinine 1.8 H Glucose 192 H POC Glucose 175 H Lactic Acid Calcium Phosphorus Magnesium Direct Bilirubin AST ALT Alkaline Phosphatase Lactate Dehydrogenase Troponin T C-Reactive Protein Total Protein Albumin Prealbumin Triglycerides Cholesterol LDL Cholesterol Direct HDL Cholesterol Urine pH Urine WBC (Auto) Urine Creatinine Urine Total Protein Fluid Total Protein Vancomycin Trough Rheumatoid Factor Complement C4 Miscellaneous Test Crossmatch 09/05/16 09/05/16 09/05/16 11:38 17:48 23:22 WBC RBC Hgb Hct MCV MCH MCHC RDW Plt Count Lymph % (Auto) [place] % (Auto) Lymph # [place] # Baso # Seg Neutrophils % Seg Neuts % (Manual) Lymphocytes % (Manual) Monocytes % (Manual) Eosinophils % (Manual) Basophils % (Manual) Nucleated RBC % Seg Neutrophils # Seg Neutrophils # Man Lymphocytes # (Manual) Monocytes # (Manual) Eosinophils # (Manual) PT INR Fibrinogen dRVVT Confirm Interp Factor V Activity POC ABG pH POC ABG pCO2 POC ABG pO2 ABG pO2 ABG HCO3 ABG Base Excess ABG Hemoglobin Oxyhemoglobin Sodium Potassium Chloride Carbon Dioxide BUN Creatinine Glucose POC Glucose 164 H 186 H 195 H Lactic Acid Calcium Phosphorus Magnesium Direct Bilirubin AST ALT Alkaline Phosphatase Lactate Dehydrogenase Troponin T C-Reactive Protein Total Protein Albumin Prealbumin Triglycerides Cholesterol LDL Cholesterol Direct HDL Cholesterol Urine pH Urine WBC (Auto) Urine Creatinine Urine Total Protein Fluid Total Protein Vancomycin Trough Rheumatoid Factor Complement C4 Miscellaneous Test Crossmatch 09/06/16 09/06/16 09/06/16 04:12 05:59 07:32 WBC RBC Hgb Hct MCV MCH MCHC RDW Plt Count Lymph % (Auto) [place] % (Auto) Lymph # [place] # Baso # Seg Neutrophils % Seg Neuts % (Manual) Lymphocytes % (Manual) Monocytes % (Manual) Eosinophils % (Manual) Basophils % (Manual) Nucleated RBC % Seg Neutrophils # Seg Neutrophils # Man Lymphocytes # (Manual) Monocytes # (Manual) Eosinophils # (Manual) PT INR Fibrinogen dRVVT Confirm Interp Factor V Activity POC ABG pH 7.514 H POC ABG pCO2 29.1 L POC ABG pO2 72 L ABG pO2 ABG HCO3 ABG Base Excess ABG Hemoglobin Oxyhemoglobin Sodium 133 L Potassium 3.4 L Chloride 94.9 L Carbon Dioxide 19 L BUN 30 H Creatinine 2.1 H Glucose 139 H POC Glucose 146 H Lactic Acid Calcium Phosphorus Magnesium Direct Bilirubin AST ALT Alkaline Phosphatase Lactate Dehydrogenase Troponin T C-Reactive Protein Total Protein Albumin Prealbumin Triglycerides Cholesterol LDL Cholesterol Direct HDL Cholesterol Urine pH Urine WBC (Auto) Urine Creatinine Urine Total Protein Fluid Total Protein Vancomycin Trough Rheumatoid Factor Complement C4 Miscellaneous Test Crossmatch 09/06/16 09/06/16 09/06/16 11:57 17:58 19:02 WBC RBC Hgb Hct MCV MCH MCHC RDW Plt Count Lymph % (Auto) [place] % (Auto) Lymph # [place] # Baso # Seg Neutrophils % Seg Neuts % (Manual) Lymphocytes % (Manual) Monocytes % (Manual) Eosinophils % (Manual) Basophils % (Manual) Nucleated RBC % Seg Neutrophils # Seg Neutrophils # Man Lymphocytes # (Manual) Monocytes # (Manual) Eosinophils # (Manual) PT INR Fibrinogen dRVVT Confirm Interp Factor V Activity POC ABG pH 7.465 H POC ABG pCO2 32.0 L POC ABG pO2 ABG pO2 ABG HCO3 ABG Base Excess ABG Hemoglobin Oxyhemoglobin Sodium Potassium Chloride Carbon Dioxide BUN Creatinine Glucose POC Glucose 165 H 160 H Lactic Acid Calcium Phosphorus Magnesium Direct Bilirubin AST ALT Alkaline Phosphatase Lactate Dehydrogenase Troponin T C-Reactive Protein Total Protein Albumin Prealbumin Triglycerides Cholesterol LDL Cholesterol Direct HDL Cholesterol Urine pH Urine WBC (Auto) Urine Creatinine Urine Total Protein Fluid Total Protein Vancomycin Trough Rheumatoid Factor Complement C4 Miscellaneous Test Crossmatch 09/06/16 09/07/16 09/07/16 23:45 02:47 02:47 WBC RBC Hgb Hct MCV MCH MCHC RDW Plt Count Lymph % (Auto) [place] % (Auto) Lymph # [place] # Baso # Seg Neutrophils % Seg Neuts % (Manual) Lymphocytes % (Manual) Monocytes % (Manual) Eosinophils % (Manual) Basophils % (Manual) Nucleated RBC % Seg Neutrophils # Seg Neutrophils # Man Lymphocytes # (Manual) Monocytes # (Manual) Eosinophils # (Manual) PT INR Fibrinogen dRVVT Confirm Interp Factor V Activity POC ABG pH POC ABG pCO2 POC ABG pO2 ABG pO2 ABG HCO3 ABG Base Excess ABG Hemoglobin Oxyhemoglobin Sodium Potassium Chloride Carbon Dioxide BUN Creatinine Glucose POC Glucose 204 H Lactic Acid Calcium Phosphorus Magnesium Direct Bilirubin AST ALT Alkaline Phosphatase Lactate Dehydrogenase Troponin T C-Reactive Protein Total Protein Albumin Prealbumin Triglycerides Cholesterol LDL Cholesterol Direct HDL Cholesterol Urine pH Urine WBC (Auto) 68.0 H Urine Creatinine 106.1 H Urine Total Protein Fluid Total Protein Vancomycin Trough Rheumatoid Factor Complement C4 Miscellaneous Test Crossmatch 09/07/16 09/07/16 09/07/16 04:50 06:19 06:39 WBC RBC Hgb Hct MCV MCH MCHC RDW Plt Count Lymph % (Auto) [place] % (Auto) Lymph # [place] # Baso # Seg Neutrophils % Seg Neuts % (Manual) Lymphocytes % (Manual) Monocytes % (Manual) Eosinophils % (Manual) Basophils % (Manual) Nucleated RBC % Seg Neutrophils # Seg Neutrophils # Man Lymphocytes # (Manual) Monocytes # (Manual) Eosinophils # (Manual) PT INR Fibrinogen dRVVT Confirm Interp Factor V Activity POC ABG pH 7.457 H POC ABG pCO2 32.1 L POC ABG pO2 76 L ABG pO2 ABG HCO3 ABG Base Excess ABG Hemoglobin Oxyhemoglobin Sodium 132 L Potassium Chloride 94.7 L Carbon Dioxide BUN 53 H Creatinine 2.9 H Glucose 151 H POC Glucose 149 H Lactic Acid Calcium Phosphorus Magnesium Direct Bilirubin AST ALT Alkaline Phosphatase Lactate Dehydrogenase Troponin T C-Reactive Protein Total Protein Albumin Prealbumin Triglycerides Cholesterol LDL Cholesterol Direct HDL Cholesterol Urine pH Urine WBC (Auto) Urine Creatinine Urine Total Protein Fluid Total Protein Vancomycin Trough Rheumatoid Factor Complement C4 Miscellaneous Test Crossmatch 09/07/16 09/07/16 09/07/16 09:20 11:43 11:43 WBC 19.4 H RBC Hgb 8.3 L Hct 26.4 L D MCV 72 L D MCH 22 L MCHC RDW 17.9 H Plt Count Lymph % (Auto) 8.5 L [place] % (Auto) Lymph # [place] # 1.0 H Baso # Seg Neutrophils % 85.8 H Seg Neuts % (Manual) Lymphocytes % (Manual) Monocytes % (Manual) Eosinophils % (Manual) Basophils % (Manual) Nucleated RBC % Seg Neutrophils # 16.6 H Seg Neutrophils # Man Lymphocytes # (Manual) Monocytes # (Manual) Eosinophils # (Manual) PT INR Fibrinogen dRVVT Confirm Interp Factor V Activity POC ABG pH POC ABG pCO2 POC ABG pO2 ABG pO2 ABG HCO3 ABG Base Excess ABG Hemoglobin Oxyhemoglobin Sodium 134 L Potassium Chloride 97.2 L Carbon Dioxide 20 L BUN 58 H Creatinine 2.9 H Glucose 147 H POC Glucose Lactic Acid Calcium Phosphorus 2.40 L Magnesium 2.40 H Direct Bilirubin AST ALT Alkaline Phosphatase Lactate Dehydrogenase Troponin T C-Reactive Protein Total Protein 5.8 L Albumin 2.2 L Prealbumin Triglycerides Cholesterol LDL Cholesterol Direct HDL Cholesterol Urine pH Urine WBC (Auto) Urine Creatinine Urine Total Protein Fluid Total Protein Vancomycin Trough Rheumatoid Factor Complement C4 58 H Miscellaneous Test Crossmatch 09/07/16 09/07/16 09/07/16 11:50 16:00 17:31 WBC RBC Hgb Hct MCV MCH MCHC RDW Plt Count Lymph % (Auto) [place] % (Auto) Lymph # [place] # Baso # Seg Neutrophils % Seg Neuts % (Manual) Lymphocytes % (Manual) Monocytes % (Manual) Eosinophils % (Manual) Basophils % (Manual) Nucleated RBC % Seg Neutrophils # Seg Neutrophils # Man Lymphocytes # (Manual) Monocytes # (Manual) Eosinophils # (Manual) PT INR Fibrinogen dRVVT Confirm Interp Factor V Activity POC ABG pH POC ABG pCO2 POC ABG pO2 158 H ABG pO2 ABG HCO3 ABG Base Excess ABG Hemoglobin Oxyhemoglobin Sodium Potassium Chloride Carbon Dioxide BUN Creatinine Glucose POC Glucose 175 H Lactic Acid Calcium Phosphorus Magnesium Direct Bilirubin AST ALT Alkaline Phosphatase Lactate Dehydrogenase Troponin T C-Reactive Protein Total Protein Albumin Prealbumin Triglycerides Cholesterol LDL Cholesterol Direct HDL Cholesterol Urine pH Urine WBC (Auto) Urine Creatinine 66.3 H Urine Total Protein Fluid Total Protein Vancomycin Trough Rheumatoid Factor Complement C4 Miscellaneous Test Crossmatch 09/07/16 09/08/16 09/08/16 23:50 05:46 06:18 WBC 17.8 H RBC 3.58 L Hgb 8.1 L Hct 25.5 L MCV 71 L MCH 23 L MCHC RDW 18.4 H Plt Count Lymph % (Auto) [place] % (Auto) Lymph # [place] # Baso # Seg Neutrophils % Seg Neuts % (Manual) 92.0 H Lymphocytes % (Manual) 6.0 L Monocytes % (Manual) Eosinophils % (Manual) Basophils % (Manual) Nucleated RBC % Seg Neutrophils # Seg Neutrophils # Man 16.4 H Lymphocytes # (Manual) 1.1 L Monocytes # (Manual) Eosinophils # (Manual) PT INR Fibrinogen dRVVT Confirm Interp Factor V Activity POC ABG pH POC ABG pCO2 34.3 L POC ABG pO2 71 L ABG pO2 ABG HCO3 ABG Base Excess ABG Hemoglobin Oxyhemoglobin Sodium Potassium Chloride Carbon Dioxide BUN Creatinine Glucose POC Glucose 216 H Lactic Acid Calcium Phosphorus Magnesium Direct Bilirubin AST ALT Alkaline Phosphatase Lactate Dehydrogenase Troponin T C-Reactive Protein Total Protein Albumin Prealbumin Triglycerides Cholesterol LDL Cholesterol Direct HDL Cholesterol Urine pH Urine WBC (Auto) Urine Creatinine Urine Total Protein Fluid Total Protein Vancomycin Trough Rheumatoid Factor Complement C4 Miscellaneous Test Crossmatch 09/08/16 09/08/16 09/08/16 06:18 06:51 10:55 WBC RBC Hgb Hct MCV MCH MCHC RDW Plt Count Lymph % (Auto) [place] % (Auto) Lymph # [place] # Baso # Seg Neutrophils % Seg Neuts % (Manual) Lymphocytes % (Manual) Monocytes % (Manual) Eosinophils % (Manual) Basophils % (Manual) Nucleated RBC % Seg Neutrophils # Seg Neutrophils # Man Lymphocytes # (Manual) Monocytes # (Manual) Eosinophils # (Manual) PT INR Fibrinogen dRVVT Confirm Interp Factor V Activity POC ABG pH POC ABG pCO2 POC ABG pO2 ABG pO2 ABG HCO3 ABG Base Excess ABG Hemoglobin Oxyhemoglobin Sodium 133 L Potassium Chloride 96.9 L Carbon Dioxide 20 L BUN 63 H Creatinine 2.7 H Glucose 195 H POC Glucose 204 H 169 H Lactic Acid Calcium Phosphorus Magnesium Direct Bilirubin AST ALT Alkaline Phosphatase Lactate Dehydrogenase Troponin T C-Reactive Protein Total Protein Albumin Prealbumin Triglycerides Cholesterol LDL Cholesterol Direct HDL Cholesterol Urine pH Urine WBC (Auto) Urine Creatinine Urine Total Protein Fluid Total Protein Vancomycin Trough Rheumatoid Factor Complement C4 Miscellaneous Test Crossmatch 09/08/16 09/08/16 09/08/16 11:48 11:48 11:48 WBC RBC Hgb Hct MCV MCH MCHC RDW Plt Count Lymph % (Auto) [place] % (Auto) Lymph # [place] # Baso # Seg Neutrophils % Seg Neuts % (Manual) Lymphocytes % (Manual) Monocytes % (Manual) Eosinophils % (Manual) Basophils % (Manual) Nucleated RBC % Seg Neutrophils # Seg Neutrophils # Man Lymphocytes # (Manual) Monocytes # (Manual) Eosinophils # (Manual) PT INR Fibrinogen 750 H dRVVT Confirm Interp Factor V Activity POC ABG pH POC ABG pCO2 POC ABG pO2 ABG pO2 ABG HCO3 ABG Base Excess ABG Hemoglobin Oxyhemoglobin Sodium Potassium Chloride Carbon Dioxide BUN Creatinine Glucose POC Glucose Lactic Acid Calcium Phosphorus Magnesium Direct Bilirubin AST ALT Alkaline Phosphatase Lactate Dehydrogenase Troponin T C-Reactive Protein 15.70 H Total Protein Albumin Prealbumin Triglycerides Cholesterol LDL Cholesterol Direct HDL Cholesterol Urine pH Urine WBC (Auto) Urine Creatinine Urine Total Protein Fluid Total Protein Vancomycin Trough Rheumatoid Factor 24 H Complement C4 Miscellaneous Test Crossmatch 09/08/16 09/08/16 09/09/16 15:35 18:25 00:24 WBC RBC Hgb Hct MCV MCH MCHC RDW Plt Count Lymph % (Auto) [place] % (Auto) Lymph # [place] # Baso # Seg Neutrophils % Seg Neuts % (Manual) Lymphocytes % (Manual) Monocytes % (Manual) Eosinophils % (Manual) Basophils % (Manual) Nucleated RBC % Seg Neutrophils # Seg Neutrophils # Man Lymphocytes # (Manual) Monocytes # (Manual) Eosinophils # (Manual) PT INR Fibrinogen dRVVT Confirm Interp Factor V Activity 182 H POC ABG pH POC ABG pCO2 POC ABG pO2 ABG pO2 ABG HCO3 ABG Base Excess ABG Hemoglobin Oxyhemoglobin Sodium Potassium Chloride Carbon Dioxide BUN Creatinine Glucose POC Glucose 184 H 216 H Lactic Acid Calcium Phosphorus Magnesium Direct Bilirubin AST ALT Alkaline Phosphatase Lactate Dehydrogenase Troponin T C-Reactive Protein Total Protein Albumin Prealbumin Triglycerides Cholesterol LDL Cholesterol Direct HDL Cholesterol Urine pH Urine WBC (Auto) Urine Creatinine Urine Total Protein Fluid Total Protein Vancomycin Trough Rheumatoid Factor Complement C4 Miscellaneous Test Crossmatch 09/09/16 09/09/16 09/09/16 03:00 03:00 04:04 WBC 27.9 H RBC Hgb 8.7 L Hct 28.1 L MCV 72 L MCH 22 L MCHC RDW 18.4 H Plt Count 485 H Lymph % (Auto) [place] % (Auto) Lymph # [place] # Baso # Seg Neutrophils % Seg Neuts % (Manual) 77.0 H Lymphocytes % (Manual) 9.0 L Monocytes % (Manual) Eosinophils % (Manual) Basophils % (Manual) Nucleated RBC % Seg Neutrophils # Seg Neutrophils # Man 21.5 H Lymphocytes # (Manual) Monocytes # (Manual) 2.0 H Eosinophils # (Manual) PT INR Fibrinogen dRVVT Confirm Interp Factor V Activity POC ABG pH POC ABG pCO2 POC ABG pO2 121 H ABG pO2 ABG HCO3 ABG Base Excess ABG Hemoglobin Oxyhemoglobin Sodium 135 L Potassium Chloride 96.3 L Carbon Dioxide 21 L BUN 83 H Creatinine 3.0 H Glucose 135 H POC Glucose Lactic Acid Calcium Phosphorus Magnesium Direct Bilirubin AST ALT Alkaline Phosphatase Lactate Dehydrogenase Troponin T C-Reactive Protein Total Protein Albumin Prealbumin Triglycerides Cholesterol LDL Cholesterol Direct HDL Cholesterol Urine pH Urine WBC (Auto) Urine Creatinine Urine Total Protein Fluid Total Protein Vancomycin Trough Rheumatoid Factor Complement C4 Miscellaneous Test Crossmatch 09/09/16 09/09/16 09/09/16 05:41 11:55 14:13 WBC RBC Hgb Hct MCV MCH MCHC RDW Plt Count Lymph % (Auto) [place] % (Auto) Lymph # [place] # Baso # Seg Neutrophils % Seg Neuts % (Manual) Lymphocytes % (Manual) Monocytes % (Manual) Eosinophils % (Manual) Basophils % (Manual) Nucleated RBC % Seg Neutrophils # Seg Neutrophils # Man Lymphocytes # (Manual) Monocytes # (Manual) Eosinophils # (Manual) PT INR Fibrinogen dRVVT Confirm Interp Factor V Activity POC ABG pH POC ABG pCO2 POC ABG pO2 ABG pO2 ABG HCO3 ABG Base Excess ABG Hemoglobin Oxyhemoglobin Sodium Potassium Chloride Carbon Dioxide BUN Creatinine Glucose POC Glucose 155 H 186 H Lactic Acid Calcium Phosphorus Magnesium Direct Bilirubin AST ALT Alkaline Phosphatase Lactate Dehydrogenase Troponin T C-Reactive Protein Total Protein Albumin Prealbumin Triglycerides Cholesterol LDL Cholesterol Direct HDL Cholesterol Urine pH Urine WBC (Auto) 25.0 H Urine Creatinine Urine Total Protein Fluid Total Protein Vancomycin Trough Rheumatoid Factor Complement C4 Miscellaneous Test Crossmatch 09/09/16 09/09/16 09/10/16 17:33 23:13 05:09 WBC RBC Hgb Hct MCV MCH MCHC RDW Plt Count Lymph % (Auto) [place] % (Auto) Lymph # [place] # Baso # Seg Neutrophils % Seg Neuts % (Manual) Lymphocytes % (Manual) Monocytes % (Manual) Eosinophils % (Manual) Basophils % (Manual) Nucleated RBC % Seg Neutrophils # Seg Neutrophils # Man Lymphocytes # (Manual) Monocytes # (Manual) Eosinophils # (Manual) PT INR Fibrinogen dRVVT Confirm Interp Factor V Activity POC ABG pH POC ABG pCO2 POC ABG pO2 74 L ABG pO2 ABG HCO3 ABG Base Excess ABG Hemoglobin Oxyhemoglobin Sodium Potassium Chloride Carbon Dioxide BUN Creatinine Glucose POC Glucose 211 H 215 H Lactic Acid Calcium Phosphorus Magnesium Direct Bilirubin AST ALT Alkaline Phosphatase Lactate Dehydrogenase Troponin T C-Reactive Protein Total Protein Albumin Prealbumin Triglycerides Cholesterol LDL Cholesterol Direct HDL Cholesterol Urine pH Urine WBC (Auto) Urine Creatinine Urine Total Protein Fluid Total Protein Vancomycin Trough Rheumatoid Factor Complement C4 Miscellaneous Test Crossmatch 09/10/16 09/10/16 09/10/16 05:17 05:17 11:31 WBC 15.8 H RBC 3.25 L Hgb 7.3 L Hct 22.9 L MCV 71 L MCH 23 L MCHC RDW 18.4 H Plt Count Lymph % (Auto) [place] % (Auto) Lymph # [place] # Baso # Seg Neutrophils % Seg Neuts % (Manual) 91.0 H Lymphocytes % (Manual) 4.0 L Monocytes % (Manual) Eosinophils % (Manual) Basophils % (Manual) Nucleated RBC % Seg Neutrophils # Seg Neutrophils # Man 14.4 H Lymphocytes # (Manual) 0.6 L Monocytes # (Manual) Eosinophils # (Manual) PT INR Fibrinogen dRVVT Confirm Interp Factor V Activity POC ABG pH POC ABG pCO2 POC ABG pO2 ABG pO2 ABG HCO3 ABG Base Excess ABG Hemoglobin Oxyhemoglobin Sodium Potassium Chloride Carbon Dioxide 21 L BUN 93 H Creatinine 2.9 H Glucose 146 H POC Glucose 188 H Lactic Acid Calcium 8.1 L Phosphorus Magnesium Direct Bilirubin AST ALT Alkaline Phosphatase Lactate Dehydrogenase Troponin T C-Reactive Protein Total Protein Albumin Prealbumin Triglycerides Cholesterol LDL Cholesterol Direct HDL Cholesterol Urine pH Urine WBC (Auto) Urine Creatinine Urine Total Protein Fluid Total Protein Vancomycin Trough Rheumatoid Factor Complement C4 Miscellaneous Test Crossmatch 09/10/16 09/10/16 09/10/16 13:17 17:20 23:32 WBC RBC Hgb Hct MCV MCH MCHC RDW Plt Count Lymph % (Auto) [place] % (Auto) Lymph # [place] # Baso # Seg Neutrophils % Seg Neuts % (Manual) Lymphocytes % (Manual) Monocytes % (Manual) Eosinophils % (Manual) Basophils % (Manual) Nucleated RBC % Seg Neutrophils # Seg Neutrophils # Man Lymphocytes # (Manual) Monocytes # (Manual) Eosinophils # (Manual) PT INR Fibrinogen dRVVT Confirm Interp Factor V Activity POC ABG pH POC ABG pCO2 POC ABG pO2 ABG pO2 ABG HCO3 ABG Base Excess ABG Hemoglobin Oxyhemoglobin Sodium Potassium Chloride Carbon Dioxide BUN Creatinine Glucose POC Glucose 199 H 186 H Lactic Acid Calcium Phosphorus Magnesium Direct Bilirubin AST ALT Alkaline Phosphatase Lactate Dehydrogenase Troponin T C-Reactive Protein Total Protein Albumin Prealbumin Triglycerides Cholesterol LDL Cholesterol Direct HDL Cholesterol Urine pH Urine WBC (Auto) Urine Creatinine Urine Total Protein Fluid Total Protein Vancomycin Trough Rheumatoid Factor Complement C4 Miscellaneous Test Crossmatch See Detail 09/11/16 09/11/16 09/11/16 05:10 05:10 05:17 WBC 28.4 H RBC Hgb 9.2 L Hct 29.3 L D MCV 73 L MCH 23 L MCHC RDW 18.9 H Plt Count 452 H Lymph % (Auto) [place] % (Auto) Lymph # [place] # Baso # Seg Neutrophils % Seg Neuts % (Manual) 89.5 H Lymphocytes % (Manual) 2.0 L Monocytes % (Manual) Eosinophils % (Manual) Basophils % (Manual) Nucleated RBC % Seg Neutrophils # Seg Neutrophils # Man 25.4 H Lymphocytes # (Manual) 0.6 L Monocytes # (Manual) 1.3 H Eosinophils # (Manual) PT INR Fibrinogen dRVVT Confirm Interp Factor V Activity POC ABG pH POC ABG pCO2 POC ABG pO2 ABG pO2 ABG HCO3 ABG Base Excess ABG Hemoglobin Oxyhemoglobin Sodium 136 L Potassium Chloride Carbon Dioxide 18 L BUN 107 H Creatinine 2.6 H Glucose 187 H POC Glucose 230 H Lactic Acid Calcium 8.3 L Phosphorus Magnesium Direct Bilirubin AST ALT Alkaline Phosphatase Lactate Dehydrogenase Troponin T C-Reactive Protein Total Protein Albumin Prealbumin Triglycerides Cholesterol LDL Cholesterol Direct HDL Cholesterol Urine pH Urine WBC (Auto) Urine Creatinine Urine Total Protein Fluid Total Protein Vancomycin Trough Rheumatoid Factor Complement C4 Miscellaneous Test Crossmatch 09/11/16 09/11/16 09/11/16 05:55 12:02 17:32 WBC RBC Hgb Hct MCV MCH MCHC RDW Plt Count Lymph % (Auto) [place] % (Auto) Lymph # [place] # Baso # Seg Neutrophils % Seg Neuts % (Manual) Lymphocytes % (Manual) Monocytes % (Manual) Eosinophils % (Manual) Basophils % (Manual) Nucleated RBC % Seg Neutrophils # Seg Neutrophils # Man Lymphocytes # (Manual) Monocytes # (Manual) Eosinophils # (Manual) PT INR Fibrinogen dRVVT Confirm Interp Factor V Activity POC ABG pH POC ABG pCO2 33.8 L POC ABG pO2 ABG pO2 ABG HCO3 ABG Base Excess ABG Hemoglobin Oxyhemoglobin Sodium Potassium Chloride Carbon Dioxide BUN Creatinine Glucose POC Glucose 191 H 239 H Lactic Acid Calcium Phosphorus Magnesium Direct Bilirubin AST ALT Alkaline Phosphatase Lactate Dehydrogenase Troponin T C-Reactive Protein Total Protein Albumin Prealbumin Triglycerides Cholesterol LDL Cholesterol Direct HDL Cholesterol Urine pH Urine WBC (Auto) Urine Creatinine Urine Total Protein Fluid Total Protein Vancomycin Trough Rheumatoid Factor Complement C4 Miscellaneous Test Crossmatch 09/11/16 09/12/16 09/12/16 23:52 05:09 05:32 WBC RBC Hgb Hct MCV MCH MCHC RDW Plt Count Lymph % (Auto) [place] % (Auto) Lymph # [place] # Baso # Seg Neutrophils % Seg Neuts % (Manual) Lymphocytes % (Manual) Monocytes % (Manual) Eosinophils % (Manual) Basophils % (Manual) Nucleated RBC % Seg Neutrophils # Seg Neutrophils # Man Lymphocytes # (Manual) Monocytes # (Manual) Eosinophils # (Manual) PT INR Fibrinogen dRVVT Confirm Interp Factor V Activity POC ABG pH POC ABG pCO2 34.6 L POC ABG pO2 ABG pO2 ABG HCO3 ABG Base Excess ABG Hemoglobin Oxyhemoglobin Sodium Potassium Chloride Carbon Dioxide BUN Creatinine Glucose POC Glucose 265 H 184 H Lactic Acid Calcium Phosphorus Magnesium Direct Bilirubin AST ALT Alkaline Phosphatase Lactate Dehydrogenase Troponin T C-Reactive Protein Total Protein Albumin Prealbumin Triglycerides Cholesterol LDL Cholesterol Direct HDL Cholesterol Urine pH Urine WBC (Auto) Urine Creatinine Urine Total Protein Fluid Total Protein Vancomycin Trough Rheumatoid Factor Complement C4 Miscellaneous Test Crossmatch 09/12/16 09/12/16 09/12/16 06:45 06:45 07:22 WBC 31.7 H RBC 3.54 L Hgb 8.3 L Hct 25.9 L MCV 73 L MCH 23 L MCHC RDW 18.9 H Plt Count Lymph % (Auto) [place] % (Auto) Lymph # [place] # Baso # Seg Neutrophils % Seg Neuts % (Manual) 88.5 H Lymphocytes % (Manual) 4.5 L Monocytes % (Manual) Eosinophils % (Manual) Basophils % (Manual) Nucleated RBC % Seg Neutrophils # Seg Neutrophils # Man 28.1 H Lymphocytes # (Manual) Monocytes # (Manual) 1.0 H Eosinophils # (Manual) PT INR Fibrinogen dRVVT Confirm Interp Factor V Activity POC ABG pH POC ABG pCO2 POC ABG pO2 ABG pO2 ABG HCO3 ABG Base Excess ABG Hemoglobin Oxyhemoglobin Sodium Potassium Chloride Carbon Dioxide 20 L BUN 115 H Creatinine 2.7 H Glucose 165 H POC Glucose Lactic Acid Calcium 8.0 L Phosphorus Magnesium Direct Bilirubin AST ALT Alkaline Phosphatase Lactate Dehydrogenase Troponin T C-Reactive Protein Total Protein Albumin Prealbumin Triglycerides 217 H Cholesterol LDL Cholesterol Direct HDL Cholesterol Urine pH Urine WBC (Auto) Urine Creatinine Urine Total Protein Fluid Total Protein Vancomycin Trough Rheumatoid Factor Complement C4 Miscellaneous Test Crossmatch 09/12/16 09/12/16 09/12/16 07:22 09:59 12:21 WBC RBC Hgb Hct MCV MCH MCHC RDW Plt Count Lymph % (Auto) [place] % (Auto) Lymph # [place] # Baso # Seg Neutrophils % Seg Neuts % (Manual) Lymphocytes % (Manual) Monocytes % (Manual) Eosinophils % (Manual) Basophils % (Manual) Nucleated RBC % Seg Neutrophils # Seg Neutrophils # Man Lymphocytes # (Manual) Monocytes # (Manual) Eosinophils # (Manual) PT INR Fibrinogen dRVVT Confirm Interp Positive H Factor V Activity POC ABG pH POC ABG pCO2 POC ABG pO2 ABG pO2 ABG HCO3 ABG Base Excess ABG Hemoglobin Oxyhemoglobin Sodium Potassium Chloride Carbon Dioxide BUN Creatinine Glucose POC Glucose 224 H Lactic Acid Calcium Phosphorus Magnesium Direct Bilirubin AST ALT Alkaline Phosphatase Lactate Dehydrogenase Troponin T C-Reactive Protein 1.70 H Total Protein Albumin Prealbumin Triglycerides Cholesterol LDL Cholesterol Direct HDL Cholesterol Urine pH Urine WBC (Auto) Urine Creatinine Urine Total Protein Fluid Total Protein Vancomycin Trough Rheumatoid Factor Complement C4 Miscellaneous Test Crossmatch 09/12/16 09/12/16 09/13/16 16:51 23:28 04:00 WBC 45.0 H* RBC Hgb 9.4 L Hct MCV 75 L MCH 23 L MCHC RDW 19.0 H Plt Count 470 H Lymph % (Auto) [place] % (Auto) Lymph # [place] # Baso # Seg Neutrophils % Seg Neuts % (Manual) 89.0 H Lymphocytes % (Manual) 5.0 L Monocytes % (Manual) Eosinophils % (Manual) Basophils % (Manual) Nucleated RBC % Seg Neutrophils # Seg Neutrophils # Man 40.1 H Lymphocytes # (Manual) Monocytes # (Manual) Eosinophils # (Manual) PT INR Fibrinogen dRVVT Confirm Interp Factor V Activity POC ABG pH POC ABG pCO2 POC ABG pO2 ABG pO2 ABG HCO3 ABG Base Excess ABG Hemoglobin Oxyhemoglobin Sodium Potassium Chloride Carbon Dioxide BUN Creatinine Glucose POC Glucose 169 H 150 H Lactic Acid Calcium Phosphorus Magnesium Direct Bilirubin AST ALT Alkaline Phosphatase Lactate Dehydrogenase Troponin T C-Reactive Protein Total Protein Albumin Prealbumin Triglycerides Cholesterol LDL Cholesterol Direct HDL Cholesterol Urine pH Urine WBC (Auto) Urine Creatinine Urine Total Protein Fluid Total Protein Vancomycin Trough Rheumatoid Factor Complement C4 Miscellaneous Test Crossmatch 09/13/16 09/13/16 09/13/16 04:00 11:26 17:31 WBC RBC Hgb Hct MCV MCH MCHC RDW Plt Count Lymph % (Auto) [place] % (Auto) Lymph # [place] # Baso # Seg Neutrophils % Seg Neuts % (Manual) Lymphocytes % (Manual) Monocytes % (Manual) Eosinophils % (Manual) Basophils % (Manual) Nucleated RBC % Seg Neutrophils # Seg Neutrophils # Man Lymphocytes # (Manual) Monocytes # (Manual) Eosinophils # (Manual) PT INR Fibrinogen dRVVT Confirm Interp Factor V Activity POC ABG pH POC ABG pCO2 POC ABG pO2 ABG pO2 ABG HCO3 ABG Base Excess ABG Hemoglobin Oxyhemoglobin Sodium Potassium Chloride Carbon Dioxide 20 L BUN 116 H Creatinine 3.0 H Glucose 172 H POC Glucose 140 H 183 H Lactic Acid Calcium Phosphorus Magnesium Direct Bilirubin AST ALT Alkaline Phosphatase Lactate Dehydrogenase Troponin T C-Reactive Protein Total Protein 6.2 L Albumin 2.9 L Prealbumin Triglycerides Cholesterol LDL Cholesterol Direct HDL Cholesterol Urine pH Urine WBC (Auto) Urine Creatinine Urine Total Protein Fluid Total Protein Vancomycin Trough Rheumatoid Factor Complement C4 Miscellaneous Test Crossmatch 09/13/16 09/14/16 09/14/16 23:23 04:06 04:07 WBC 29.4 H RBC Hgb 8.9 L Hct 27.3 L MCV 75 L MCH 24 L MCHC RDW 19.1 H Plt Count Lymph % (Auto) [place] % (Auto) Lymph # [place] # Baso # Seg Neutrophils % Seg Neuts % (Manual) 84.0 H Lymphocytes % (Manual) 6.0 L Monocytes % (Manual) 9.0 H Eosinophils % (Manual) Basophils % (Manual) Nucleated RBC % Seg Neutrophils # Seg Neutrophils # Man 24.7 H Lymphocytes # (Manual) Monocytes # (Manual) 2.6 H Eosinophils # (Manual) PT INR Fibrinogen dRVVT Confirm Interp Factor V Activity POC ABG pH 7.342 L POC ABG pCO2 POC ABG pO2 116 H ABG pO2 ABG HCO3 ABG Base Excess ABG Hemoglobin Oxyhemoglobin Sodium Potassium Chloride Carbon Dioxide BUN Creatinine Glucose POC Glucose 154 H Lactic Acid Calcium Phosphorus Magnesium Direct Bilirubin AST ALT Alkaline Phosphatase Lactate Dehydrogenase Troponin T C-Reactive Protein Total Protein Albumin Prealbumin Triglycerides Cholesterol LDL Cholesterol Direct HDL Cholesterol Urine pH Urine WBC (Auto) Urine Creatinine Urine Total Protein Fluid Total Protein Vancomycin Trough Rheumatoid Factor Complement C4 Miscellaneous Test Crossmatch 09/14/16 09/14/16 09/14/16 04:07 05:29 12:19 WBC RBC Hgb Hct MCV MCH MCHC RDW Plt Count Lymph % (Auto) [place] % (Auto) Lymph # [place] # Baso # Seg Neutrophils % Seg Neuts % (Manual) Lymphocytes % (Manual) Monocytes % (Manual) Eosinophils % (Manual) Basophils % (Manual) Nucleated RBC % Seg Neutrophils # Seg Neutrophils # Man Lymphocytes # (Manual) Monocytes # (Manual) Eosinophils # (Manual) PT INR Fibrinogen dRVVT Confirm Interp Factor V Activity POC ABG pH POC ABG pCO2 POC ABG pO2 ABG pO2 ABG HCO3 ABG Base Excess ABG Hemoglobin Oxyhemoglobin Sodium 136 L Potassium Chloride Carbon Dioxide 18 L BUN 121 H Creatinine 2.8 H Glucose 214 H POC Glucose 239 H 181 H Lactic Acid Calcium Phosphorus Magnesium Direct Bilirubin AST ALT Alkaline Phosphatase Lactate Dehydrogenase Troponin T C-Reactive Protein Total Protein Albumin Prealbumin Triglycerides Cholesterol LDL Cholesterol Direct HDL Cholesterol Urine pH Urine WBC (Auto) Urine Creatinine Urine Total Protein Fluid Total Protein Vancomycin Trough Rheumatoid Factor Complement C4 Miscellaneous Test Crossmatch 09/14/16 09/14/16 09/15/16 18:12 23:37 05:00 WBC 26.1 H RBC 3.05 L Hgb 7.2 L Hct 22.9 L MCV 75 L MCH 24 L MCHC RDW 19.0 H Plt Count Lymph % (Auto) [place] % (Auto) Lymph # [place] # Baso # Seg Neutrophils % Seg Neuts % (Manual) Lymphocytes % (Manual) Monocytes % (Manual) Eosinophils % (Manual) Basophils % (Manual) Nucleated RBC % Seg Neutrophils # Seg Neutrophils # Man Lymphocytes # (Manual) Monocytes # (Manual) Eosinophils # (Manual) PT INR Fibrinogen dRVVT Confirm Interp Factor V Activity POC ABG pH POC ABG pCO2 POC ABG pO2 ABG pO2 ABG HCO3 ABG Base Excess ABG Hemoglobin Oxyhemoglobin Sodium Potassium Chloride Carbon Dioxide BUN Creatinine Glucose POC Glucose 266 H 154 H Lactic Acid Calcium Phosphorus Magnesium Direct Bilirubin AST ALT Alkaline Phosphatase Lactate Dehydrogenase Troponin T C-Reactive Protein Total Protein Albumin Prealbumin Triglycerides Cholesterol LDL Cholesterol Direct HDL Cholesterol Urine pH Urine WBC (Auto) Urine Creatinine Urine Total Protein Fluid Total Protein Vancomycin Trough Rheumatoid Factor Complement C4 Miscellaneous Test Crossmatch 09/15/16 09/15/16 09/15/16 05:00 05:17 12:45 WBC RBC Hgb Hct MCV MCH MCHC RDW Plt Count Lymph % (Auto) [place] % (Auto) Lymph # [place] # Baso # Seg Neutrophils % Seg Neuts % (Manual) Lymphocytes % (Manual) Monocytes % (Manual) Eosinophils % (Manual) Basophils % (Manual) Nucleated RBC % Seg Neutrophils # Seg Neutrophils # Man Lymphocytes # (Manual) Monocytes # (Manual) Eosinophils # (Manual) PT INR Fibrinogen dRVVT Confirm Interp Factor V Activity POC ABG pH POC ABG pCO2 POC ABG pO2 ABG pO2 ABG HCO3 ABG Base Excess ABG Hemoglobin Oxyhemoglobin Sodium Potassium 5.2 H Chloride Carbon Dioxide 18 L BUN 139 H Creatinine 3.7 H Glucose 227 H POC Glucose 226 H 244 H Lactic Acid Calcium 8.3 L Phosphorus Magnesium Direct Bilirubin AST ALT Alkaline Phosphatase Lactate Dehydrogenase Troponin T C-Reactive Protein Total Protein Albumin Prealbumin Triglycerides Cholesterol LDL Cholesterol Direct HDL Cholesterol Urine pH Urine WBC (Auto) Urine Creatinine Urine Total Protein Fluid Total Protein Vancomycin Trough Rheumatoid Factor Complement C4 Miscellaneous Test Crossmatch 09/15/16 09/15/16 09/15/16 14:32 17:33 23:35 WBC RBC Hgb Hct MCV MCH MCHC RDW Plt Count Lymph % (Auto) [place] % (Auto) Lymph # [place] # Baso # Seg Neutrophils % Seg Neuts % (Manual) Lymphocytes % (Manual) Monocytes % (Manual) Eosinophils % (Manual) Basophils % (Manual) Nucleated RBC % Seg Neutrophils # Seg Neutrophils # Man Lymphocytes # (Manual) Monocytes # (Manual) Eosinophils # (Manual) PT INR Fibrinogen dRVVT Confirm Interp Factor V Activity POC ABG pH POC ABG pCO2 27.7 L POC ABG pO2 120 H ABG pO2 ABG HCO3 ABG Base Excess ABG Hemoglobin Oxyhemoglobin Sodium Potassium Chloride Carbon Dioxide BUN Creatinine Glucose POC Glucose 232 H 167 H Lactic Acid Calcium Phosphorus Magnesium Direct Bilirubin AST ALT Alkaline Phosphatase Lactate Dehydrogenase Troponin T C-Reactive Protein Total Protein Albumin Prealbumin Triglycerides Cholesterol LDL Cholesterol Direct HDL Cholesterol Urine pH Urine WBC (Auto) Urine Creatinine Urine Total Protein Fluid Total Protein Vancomycin Trough Rheumatoid Factor Complement C4 Miscellaneous Test Crossmatch 09/16/16 09/16/16 09/16/16 03:58 10:27 10:27 WBC 19.0 H RBC 2.77 L Hgb 6.5 L Hct 20.9 L MCV 76 L MCH 23 L MCHC RDW 19.3 H Plt Count Lymph % (Auto) 11.0 L [place] % (Auto) Lymph # [place] # 1.1 H Baso # Seg Neutrophils % 82.5 H Seg Neuts % (Manual) Lymphocytes % (Manual) Monocytes % (Manual) Eosinophils % (Manual) Basophils % (Manual) Nucleated RBC % Seg Neutrophils # 15.7 H Seg Neutrophils # Man Lymphocytes # (Manual) Monocytes # (Manual) Eosinophils # (Manual) PT INR Fibrinogen dRVVT Confirm Interp Factor V Activity POC ABG pH POC ABG pCO2 POC ABG pO2 ABG pO2 ABG HCO3 ABG Base Excess ABG Hemoglobin Oxyhemoglobin Sodium Potassium Chloride 109.3 H Carbon Dioxide 18 L BUN 139 H Creatinine 4.1 H Glucose 144 H POC Glucose 146 H Lactic Acid Calcium 8.1 L Phosphorus Magnesium Direct Bilirubin AST ALT Alkaline Phosphatase Lactate Dehydrogenase Troponin T C-Reactive Protein Total Protein Albumin Prealbumin Triglycerides Cholesterol LDL Cholesterol Direct HDL Cholesterol Urine pH Urine WBC (Auto) Urine Creatinine Urine Total Protein Fluid Total Protein Vancomycin Trough Rheumatoid Factor Complement C4 Miscellaneous Test Crossmatch 09/16/16 09/16/16 09/16/16 12:04 12:10 13:55 WBC RBC Hgb Hct MCV MCH MCHC RDW Plt Count Lymph % (Auto) [place] % (Auto) Lymph # [place] # Baso # Seg Neutrophils % Seg Neuts % (Manual) Lymphocytes % (Manual) Monocytes % (Manual) Eosinophils % (Manual) Basophils % (Manual) Nucleated RBC % Seg Neutrophils # Seg Neutrophils # Man Lymphocytes # (Manual) Monocytes # (Manual) Eosinophils # (Manual) PT INR Fibrinogen dRVVT Confirm Interp Factor V Activity POC ABG pH POC ABG pCO2 32.9 L POC ABG pO2 ABG pO2 ABG HCO3 ABG Base Excess ABG Hemoglobin Oxyhemoglobin Sodium Potassium Chloride Carbon Dioxide BUN Creatinine Glucose POC Glucose 185 H Lactic Acid Calcium Phosphorus Magnesium Direct Bilirubin AST ALT Alkaline Phosphatase Lactate Dehydrogenase Troponin T C-Reactive Protein Total Protein Albumin Prealbumin Triglycerides Cholesterol LDL Cholesterol Direct HDL Cholesterol Urine pH Urine WBC (Auto) Urine Creatinine Urine Total Protein Fluid Total Protein Vancomycin Trough Rheumatoid Factor Complement C4 Miscellaneous Test Crossmatch See Detail 09/16/16 09/16/16 09/16/16 17:55 19:19 23:48 WBC RBC Hgb Hct MCV MCH MCHC RDW Plt Count Lymph % (Auto) [place] % (Auto) Lymph # [place] # Baso # Seg Neutrophils % Seg Neuts % (Manual) Lymphocytes % (Manual) Monocytes % (Manual) Eosinophils % (Manual) Basophils % (Manual) Nucleated RBC % Seg Neutrophils # Seg Neutrophils # Man Lymphocytes # (Manual) Monocytes # (Manual) Eosinophils # (Manual) PT INR Fibrinogen dRVVT Confirm Interp Factor V Activity POC ABG pH POC ABG pCO2 POC ABG pO2 ABG pO2 ABG HCO3 ABG Base Excess ABG Hemoglobin Oxyhemoglobin Sodium Potassium Chloride Carbon Dioxide BUN Creatinine Glucose POC Glucose 222 H 107 H Lactic Acid Calcium Phosphorus Magnesium Direct Bilirubin AST ALT Alkaline Phosphatase Lactate Dehydrogenase Troponin T C-Reactive Protein Total Protein Albumin Prealbumin Triglycerides Cholesterol LDL Cholesterol Direct HDL Cholesterol Urine pH Urine WBC (Auto) Urine Creatinine 47.4 H Urine Total Protein 16 H Fluid Total Protein Vancomycin Trough Rheumatoid Factor Complement C4 Miscellaneous Test Crossmatch 09/17/16 09/17/16 09/17/16 03:45 03:45 04:55 WBC 19.6 H RBC 3.41 L Hgb 8.5 L Hct 26.7 L MCV 78 L MCH 25 L MCHC RDW 19.9 H Plt Count Lymph % (Auto) 9.3 L [place] % (Auto) Lymph # [place] # 1.2 H Baso # Seg Neutrophils % 83.9 H Seg Neuts % (Manual) Lymphocytes % (Manual) Monocytes % (Manual) Eosinophils % (Manual) Basophils % (Manual) Nucleated RBC % Seg Neutrophils # 16.4 H Seg Neutrophils # Man Lymphocytes # (Manual) Monocytes # (Manual) Eosinophils # (Manual) PT INR Fibrinogen dRVVT Confirm Interp Factor V Activity POC ABG pH POC ABG pCO2 POC ABG pO2 ABG pO2 ABG HCO3 ABG Base Excess ABG Hemoglobin Oxyhemoglobin Sodium 146 H Potassium 5.1 H Chloride 110.9 H Carbon Dioxide 16 L BUN 146 H Creatinine 4.0 H Glucose 108 H POC Glucose 133 H Lactic Acid Calcium Phosphorus Magnesium 3.00 H Direct Bilirubin AST ALT Alkaline Phosphatase Lactate Dehydrogenase Troponin T C-Reactive Protein Total Protein Albumin Prealbumin Triglycerides Cholesterol LDL Cholesterol Direct HDL Cholesterol Urine pH Urine WBC (Auto) Urine Creatinine Urine Total Protein Fluid Total Protein Vancomycin Trough Rheumatoid Factor Complement C4 Miscellaneous Test Crossmatch 09/17/16 09/17/16 09/17/16 11:15 17:33 23:47 WBC RBC Hgb Hct MCV MCH MCHC RDW Plt Count Lymph % (Auto) [place] % (Auto) Lymph # [place] # Baso # Seg Neutrophils % Seg Neuts % (Manual) Lymphocytes % (Manual) Monocytes % (Manual) Eosinophils % (Manual) Basophils % (Manual) Nucleated RBC % Seg Neutrophils # Seg Neutrophils # Man Lymphocytes # (Manual) Monocytes # (Manual) Eosinophils # (Manual) PT INR Fibrinogen dRVVT Confirm Interp Factor V Activity POC ABG pH POC ABG pCO2 POC ABG pO2 ABG pO2 ABG HCO3 ABG Base Excess ABG Hemoglobin Oxyhemoglobin Sodium Potassium Chloride Carbon Dioxide BUN Creatinine Glucose POC Glucose 176 H 246 H 148 H Lactic Acid Calcium Phosphorus Magnesium Direct Bilirubin AST ALT Alkaline Phosphatase Lactate Dehydrogenase Troponin T C-Reactive Protein Total Protein Albumin Prealbumin Triglycerides Cholesterol LDL Cholesterol Direct HDL Cholesterol Urine pH Urine WBC (Auto) Urine Creatinine Urine Total Protein Fluid Total Protein Vancomycin Trough Rheumatoid Factor Complement C4 Miscellaneous Test Crossmatch 09/18/16 09/18/16 09/18/16 05:33 08:31 08:31 WBC 18.0 H RBC 3.17 L Hgb 9.0 L Hct 25.7 L MCV MCH MCHC 35 H RDW 20.4 H Plt Count Lymph % (Auto) [place] % (Auto) Lymph # [place] # Baso # Seg Neutrophils % Seg Neuts % (Manual) Lymphocytes % (Manual) Monocytes % (Manual) Eosinophils % (Manual) Basophils % (Manual) Nucleated RBC % Seg Neutrophils # Seg Neutrophils # Man Lymphocytes # (Manual) Monocytes # (Manual) Eosinophils # (Manual) PT INR Fibrinogen dRVVT Confirm Interp Factor V Activity POC ABG pH POC ABG pCO2 POC ABG pO2 ABG pO2 ABG HCO3 ABG Base Excess ABG Hemoglobin Oxyhemoglobin Sodium Potassium Chloride Carbon Dioxide 15 L BUN 124 H Creatinine 3.8 H Glucose POC Glucose 120 H Lactic Acid Calcium 8.1 L Phosphorus Magnesium Direct Bilirubin AST ALT Alkaline Phosphatase Lactate Dehydrogenase Troponin T C-Reactive Protein Total Protein Albumin Prealbumin Triglycerides Cholesterol LDL Cholesterol Direct HDL Cholesterol Urine pH Urine WBC (Auto) Urine Creatinine Urine Total Protein Fluid Total Protein Vancomycin Trough Rheumatoid Factor Complement C4 Miscellaneous Test Crossmatch 09/18/16 09/18/16 09/18/16 12:03 15:34 17:50 WBC RBC Hgb Hct MCV MCH MCHC RDW Plt Count Lymph % (Auto) [place] % (Auto) Lymph # [place] # Baso # Seg Neutrophils % Seg Neuts % (Manual) Lymphocytes % (Manual) Monocytes % (Manual) Eosinophils % (Manual) Basophils % (Manual) Nucleated RBC % Seg Neutrophils # Seg Neutrophils # Man Lymphocytes # (Manual) Monocytes # (Manual) Eosinophils # (Manual) PT INR Fibrinogen dRVVT Confirm Interp Factor V Activity POC ABG pH POC ABG pCO2 25.7 L POC ABG pO2 66 L ABG pO2 ABG HCO3 ABG Base Excess ABG Hemoglobin Oxyhemoglobin Sodium Potassium Chloride Carbon Dioxide BUN Creatinine Glucose POC Glucose 156 H 220 H Lactic Acid Calcium Phosphorus Magnesium Direct Bilirubin AST ALT Alkaline Phosphatase Lactate Dehydrogenase Troponin T C-Reactive Protein Total Protein Albumin Prealbumin Triglycerides Cholesterol LDL Cholesterol Direct HDL Cholesterol Urine pH Urine WBC (Auto) Urine Creatinine Urine Total Protein Fluid Total Protein Vancomycin Trough Rheumatoid Factor Complement C4 Miscellaneous Test Crossmatch 09/19/16 09/19/16 09/19/16 06:21 09:50 09:50 WBC 17.1 H RBC 3.49 L Hgb 9.0 L Hct 28.1 L MCV MCH 26 L MCHC RDW 20.8 H Plt Count Lymph % (Auto) 11.5 L [place] % (Auto) 7.5 H Lymph # [place] # 1.3 H Baso # Seg Neutrophils % 79.8 H Seg Neuts % (Manual) Lymphocytes % (Manual) Monocytes % (Manual) Eosinophils % (Manual) Basophils % (Manual) Nucleated RBC % Seg Neutrophils # 13.7 H Seg Neutrophils # Man Lymphocytes # (Manual) Monocytes # (Manual) Eosinophils # (Manual) PT INR Fibrinogen dRVVT Confirm Interp Factor V Activity POC ABG pH POC ABG pCO2 POC ABG pO2 ABG pO2 ABG HCO3 ABG Base Excess ABG Hemoglobin Oxyhemoglobin Sodium Potassium Chloride 108.6 H Carbon Dioxide 15 L BUN 125 H Creatinine 4.1 H Glucose 124 H POC Glucose 119 H Lactic Acid Calcium Phosphorus Magnesium Direct Bilirubin AST ALT Alkaline Phosphatase Lactate Dehydrogenase Troponin T C-Reactive Protein Total Protein Albumin Prealbumin Triglycerides Cholesterol LDL Cholesterol Direct HDL Cholesterol Urine pH Urine WBC (Auto) Urine Creatinine Urine Total Protein Fluid Total Protein Vancomycin Trough Rheumatoid Factor Complement C4 Miscellaneous Test Crossmatch 09/19/16 09/19/16 09/19/16 11:25 17:53 23:36 WBC RBC Hgb Hct MCV MCH MCHC RDW Plt Count Lymph % (Auto) [place] % (Auto) Lymph # [place] # Baso # Seg Neutrophils % Seg Neuts % (Manual) Lymphocytes % (Manual) Monocytes % (Manual) Eosinophils % (Manual) Basophils % (Manual) Nucleated RBC % Seg Neutrophils # Seg Neutrophils # Man Lymphocytes # (Manual) Monocytes # (Manual) Eosinophils # (Manual) PT INR Fibrinogen dRVVT Confirm Interp Factor V Activity POC ABG pH POC ABG pCO2 POC ABG pO2 ABG pO2 ABG HCO3 ABG Base Excess ABG Hemoglobin Oxyhemoglobin Sodium Potassium Chloride Carbon Dioxide BUN Creatinine Glucose POC Glucose 160 H 245 H 121 H Lactic Acid Calcium Phosphorus Magnesium Direct Bilirubin AST ALT Alkaline Phosphatase Lactate Dehydrogenase Troponin T C-Reactive Protein Total Protein Albumin Prealbumin Triglycerides Cholesterol LDL Cholesterol Direct HDL Cholesterol Urine pH Urine WBC (Auto) Urine Creatinine Urine Total Protein Fluid Total Protein Vancomycin Trough Rheumatoid Factor Complement C4 Miscellaneous Test Crossmatch 09/20/16 09/20/16 09/20/16 04:10 04:10 04:10 WBC 17.0 H RBC 3.21 L Hgb 8.2 L Hct 25.5 L MCV MCH 26 L MCHC RDW 20.9 H Plt Count Lymph % (Auto) [place] % (Auto) Lymph # [place] # Baso # Seg Neutrophils % Seg Neuts % (Manual) Lymphocytes % (Manual) Monocytes % (Manual) Eosinophils % (Manual) Basophils % (Manual) Nucleated RBC % Seg Neutrophils # Seg Neutrophils # Man Lymphocytes # (Manual) Monocytes # (Manual) Eosinophils # (Manual) PT INR Fibrinogen dRVVT Confirm Interp Factor V Activity POC ABG pH POC ABG pCO2 POC ABG pO2 ABG pO2 ABG HCO3 ABG Base Excess ABG Hemoglobin Oxyhemoglobin Sodium Potassium Chloride 111.0 H Carbon Dioxide 16 L BUN 129 H Creatinine 3.7 H Glucose 115 H POC Glucose Lactic Acid Calcium 8.2 L Phosphorus Magnesium Direct Bilirubin AST ALT Alkaline Phosphatase Lactate Dehydrogenase Troponin T C-Reactive Protein Total Protein Albumin Prealbumin Triglycerides 243 H Cholesterol LDL Cholesterol Direct HDL Cholesterol Urine pH Urine WBC (Auto) Urine Creatinine Urine Total Protein Fluid Total Protein Vancomycin Trough Rheumatoid Factor Complement C4 Miscellaneous Test Crossmatch 09/20/16 09/20/16 09/20/16 05:40 11:52 16:50 WBC RBC Hgb Hct MCV MCH MCHC RDW Plt Count Lymph % (Auto) [place] % (Auto) Lymph # [place] # Baso # Seg Neutrophils % Seg Neuts % (Manual) Lymphocytes % (Manual) Monocytes % (Manual) Eosinophils % (Manual) Basophils % (Manual) Nucleated RBC % Seg Neutrophils # Seg Neutrophils # Man Lymphocytes # (Manual) Monocytes # (Manual) Eosinophils # (Manual) PT INR Fibrinogen dRVVT Confirm Interp Factor V Activity POC ABG pH POC ABG pCO2 POC ABG pO2 ABG pO2 ABG HCO3 ABG Base Excess ABG Hemoglobin Oxyhemoglobin Sodium Potassium Chloride Carbon Dioxide BUN Creatinine Glucose POC Glucose 131 H 183 H 236 H Lactic Acid Calcium Phosphorus Magnesium Direct Bilirubin AST ALT Alkaline Phosphatase Lactate Dehydrogenase Troponin T C-Reactive Protein Total Protein Albumin Prealbumin Triglycerides Cholesterol LDL Cholesterol Direct HDL Cholesterol Urine pH Urine WBC (Auto) Urine Creatinine Urine Total Protein Fluid Total Protein Vancomycin Trough Rheumatoid Factor Complement C4 Miscellaneous Test Crossmatch 09/20/16 09/21/16 09/21/16 23:51 03:30 04:44 WBC RBC Hgb Hct MCV MCH MCHC RDW Plt Count Lymph % (Auto) [place] % (Auto) Lymph # [place] # Baso # Seg Neutrophils % Seg Neuts % (Manual) Lymphocytes % (Manual) Monocytes % (Manual) Eosinophils % (Manual) Basophils % (Manual) Nucleated RBC % Seg Neutrophils # Seg Neutrophils # Man Lymphocytes # (Manual) Monocytes # (Manual) Eosinophils # (Manual) PT INR Fibrinogen dRVVT Confirm Interp Factor V Activity POC ABG pH POC ABG pCO2 POC ABG pO2 ABG pO2 ABG HCO3 ABG Base Excess ABG Hemoglobin Oxyhemoglobin Sodium Potassium Chloride Carbon Dioxide BUN Creatinine Glucose POC Glucose 114 H 141 H Lactic Acid Calcium Phosphorus Magnesium 2.70 H Direct Bilirubin AST ALT Alkaline Phosphatase Lactate Dehydrogenase Troponin T C-Reactive Protein Total Protein Albumin Prealbumin Triglycerides Cholesterol LDL Cholesterol Direct HDL Cholesterol Urine pH Urine WBC (Auto) Urine Creatinine Urine Total Protein Fluid Total Protein Vancomycin Trough Rheumatoid Factor Complement C4 Miscellaneous Test Crossmatch 09/21/16 09/21/16 09/21/16 07:45 07:45 10:01 WBC 13.8 H RBC 2.94 L Hgb 7.5 L Hct 23.5 L MCV MCH 26 L MCHC RDW 21.2 H Plt Count Lymph % (Auto) 6.9 L [place] % (Auto) 9.4 H Lymph # 0.9 L [place] # 1.3 H Baso # Seg Neutrophils % 83.2 H Seg Neuts % (Manual) Lymphocytes % (Manual) Monocytes % (Manual) Eosinophils % (Manual) Basophils % (Manual) Nucleated RBC % Seg Neutrophils # 11.5 H Seg Neutrophils # Man Lymphocytes # (Manual) Monocytes # (Manual) Eosinophils # (Manual) PT INR Fibrinogen dRVVT Confirm Interp Factor V Activity POC ABG pH 7.308 L POC ABG pCO2 31.9 L POC ABG pO2 148 H ABG pO2 ABG HCO3 ABG Base Excess ABG Hemoglobin Oxyhemoglobin Sodium 147 H Potassium Chloride 114.2 H Carbon Dioxide 15 L BUN 120 H Creatinine 3.9 H Glucose 156 H POC Glucose Lactic Acid Calcium 8.2 L Phosphorus Magnesium Direct Bilirubin AST ALT Alkaline Phosphatase Lactate Dehydrogenase Troponin T C-Reactive Protein Total Protein Albumin Prealbumin Triglycerides Cholesterol LDL Cholesterol Direct HDL Cholesterol Urine pH Urine WBC (Auto) Urine Creatinine Urine Total Protein Fluid Total Protein Vancomycin Trough Rheumatoid Factor Complement C4 Miscellaneous Test Crossmatch 09/21/16 09/21/16 09/21/16 12:00 12:03 13:00 WBC RBC Hgb Hct MCV MCH MCHC RDW Plt Count Lymph % (Auto) [place] % (Auto) Lymph # [place] # Baso # Seg Neutrophils % Seg Neuts % (Manual) Lymphocytes % (Manual) Monocytes % (Manual) Eosinophils % (Manual) Basophils % (Manual) Nucleated RBC % Seg Neutrophils # Seg Neutrophils # Man Lymphocytes # (Manual) Monocytes # (Manual) Eosinophils # (Manual) PT INR Fibrinogen dRVVT Confirm Interp Factor V Activity POC ABG pH POC ABG pCO2 POC ABG pO2 ABG pO2 ABG HCO3 ABG Base Excess ABG Hemoglobin Oxyhemoglobin Sodium Potassium Chloride Carbon Dioxide BUN Creatinine Glucose POC Glucose 163 H Lactic Acid Calcium Phosphorus Magnesium Direct Bilirubin AST ALT Alkaline Phosphatase Lactate Dehydrogenase Troponin T C-Reactive Protein Total Protein Albumin Prealbumin Triglycerides Cholesterol LDL Cholesterol Direct HDL Cholesterol Urine pH Urine WBC (Auto) Urine Creatinine 54.8 H Urine Total Protein Fluid Total Protein Vancomycin Trough 2.3 L Rheumatoid Factor Complement C4 Miscellaneous Test Crossmatch 09/21/16 09/21/16 09/22/16 16:51 23:17 06:27 WBC RBC Hgb Hct MCV MCH MCHC RDW Plt Count Lymph % (Auto) [place] % (Auto) Lymph # [place] # Baso # Seg Neutrophils % Seg Neuts % (Manual) Lymphocytes % (Manual) Monocytes % (Manual) Eosinophils % (Manual) Basophils % (Manual) Nucleated RBC % Seg Neutrophils # Seg Neutrophils # Man Lymphocytes # (Manual) Monocytes # (Manual) Eosinophils # (Manual) PT INR Fibrinogen dRVVT Confirm Interp Factor V Activity POC ABG pH POC ABG pCO2 POC ABG pO2 ABG pO2 ABG HCO3 ABG Base Excess ABG Hemoglobin Oxyhemoglobin Sodium Potassium Chloride Carbon Dioxide BUN Creatinine Glucose POC Glucose 206 H 114 H 115 H Lactic Acid Calcium Phosphorus Magnesium Direct Bilirubin AST ALT Alkaline Phosphatase Lactate Dehydrogenase Troponin T C-Reactive Protein Total Protein Albumin Prealbumin Triglycerides Cholesterol LDL Cholesterol Direct HDL Cholesterol Urine pH Urine WBC (Auto) Urine Creatinine Urine Total Protein Fluid Total Protein Vancomycin Trough Rheumatoid Factor Complement C4 Miscellaneous Test Crossmatch 09/22/16 09/22/16 09/22/16 07:50 07:50 12:00 WBC 17.8 H RBC 3.04 L Hgb 8.0 L Hct 24.7 L MCV MCH 26 L MCHC RDW 21.6 H Plt Count Lymph % (Auto) [place] % (Auto) Lymph # [place] # Baso # Seg Neutrophils % Seg Neuts % (Manual) Lymphocytes % (Manual) Monocytes % (Manual) Eosinophils % (Manual) Basophils % (Manual) Nucleated RBC % Seg Neutrophils # Seg Neutrophils # Man Lymphocytes # (Manual) Monocytes # (Manual) Eosinophils # (Manual) PT INR Fibrinogen dRVVT Confirm Interp Factor V Activity POC ABG pH POC ABG pCO2 POC ABG pO2 ABG pO2 ABG HCO3 ABG Base Excess ABG Hemoglobin Oxyhemoglobin Sodium 150 H Potassium Chloride 118.2 H Carbon Dioxide 14 L BUN 111 H Creatinine 3.7 H Glucose 157 H POC Glucose 183 H Lactic Acid Calcium Phosphorus Magnesium Direct Bilirubin AST ALT Alkaline Phosphatase Lactate Dehydrogenase Troponin T C-Reactive Protein Total Protein Albumin Prealbumin Triglycerides Cholesterol LDL Cholesterol Direct HDL Cholesterol Urine pH Urine WBC (Auto) Urine Creatinine Urine Total Protein Fluid Total Protein Vancomycin Trough Rheumatoid Factor Complement C4 Miscellaneous Test Crossmatch 09/22/16 09/22/16 09/23/16 17:29 23:10 05:00 WBC 19.2 H RBC 3.13 L Hgb 8.0 L Hct 25.2 L MCV MCH 26 L MCHC RDW 22.1 H Plt Count Lymph % (Auto) [place] % (Auto) Lymph # [place] # Baso # Seg Neutrophils % Seg Neuts % (Manual) 92.0 H Lymphocytes % (Manual) 3.0 L Monocytes % (Manual) Eosinophils % (Manual) Basophils % (Manual) Nucleated RBC % Seg Neutrophils # Seg Neutrophils # Man 17.7 H Lymphocytes # (Manual) 0.6 L Monocytes # (Manual) Eosinophils # (Manual) PT INR Fibrinogen dRVVT Confirm Interp Factor V Activity POC ABG pH POC ABG pCO2 POC ABG pO2 ABG pO2 ABG HCO3 ABG Base Excess ABG Hemoglobin Oxyhemoglobin Sodium Potassium Chloride Carbon Dioxide BUN Creatinine Glucose POC Glucose 197 H 169 H Lactic Acid Calcium Phosphorus Magnesium Direct Bilirubin AST ALT Alkaline Phosphatase Lactate Dehydrogenase Troponin T C-Reactive Protein Total Protein Albumin Prealbumin Triglycerides Cholesterol LDL Cholesterol Direct HDL Cholesterol Urine pH Urine WBC (Auto) Urine Creatinine Urine Total Protein Fluid Total Protein Vancomycin Trough Rheumatoid Factor Complement C4 Miscellaneous Test Crossmatch 09/23/16 09/23/16 09/23/16 05:00 05:00 05:10 WBC RBC Hgb Hct MCV MCH MCHC RDW Plt Count Lymph % (Auto) [place] % (Auto) Lymph # [place] # Baso # Seg Neutrophils % Seg Neuts % (Manual) Lymphocytes % (Manual) Monocytes % (Manual) Eosinophils % (Manual) Basophils % (Manual) Nucleated RBC % Seg Neutrophils # Seg Neutrophils # Man Lymphocytes # (Manual) Monocytes # (Manual) Eosinophils # (Manual) PT INR Fibrinogen dRVVT Confirm Interp Factor V Activity POC ABG pH POC ABG pCO2 POC ABG pO2 ABG pO2 ABG HCO3 ABG Base Excess ABG Hemoglobin Oxyhemoglobin Sodium 147 H Potassium 3.2 L Chloride 115.7 H Carbon Dioxide 13 L BUN 111 H Creatinine 3.8 H Glucose 194 H POC Glucose 188 H Lactic Acid Calcium 7.3 L D Phosphorus Magnesium Direct Bilirubin AST ALT Alkaline Phosphatase Lactate Dehydrogenase Troponin T C-Reactive Protein 3.20 H Total Protein Albumin Prealbumin Triglycerides Cholesterol LDL Cholesterol Direct HDL Cholesterol Urine pH Urine WBC (Auto) Urine Creatinine Urine Total Protein Fluid Total Protein Vancomycin Trough Rheumatoid Factor Complement C4 Miscellaneous Test Crossmatch 09/23/16 09/23/16 09/23/16 11:37 12:29 18:01 WBC RBC Hgb Hct MCV MCH MCHC RDW Plt Count Lymph % (Auto) [place] % (Auto) Lymph # [place] # Baso # Seg Neutrophils % Seg Neuts % (Manual) Lymphocytes % (Manual) Monocytes % (Manual) Eosinophils % (Manual) Basophils % (Manual) Nucleated RBC % Seg Neutrophils # Seg Neutrophils # Man Lymphocytes # (Manual) Monocytes # (Manual) Eosinophils # (Manual) PT INR Fibrinogen dRVVT Confirm Interp Factor V Activity POC ABG pH POC ABG pCO2 18.9 L POC ABG pO2 143 H ABG pO2 ABG HCO3 ABG Base Excess ABG Hemoglobin Oxyhemoglobin Sodium Potassium Chloride Carbon Dioxide BUN Creatinine Glucose POC Glucose 153 H 108 H Lactic Acid Calcium Phosphorus Magnesium Direct Bilirubin AST ALT Alkaline Phosphatase Lactate Dehydrogenase Troponin T C-Reactive Protein Total Protein Albumin Prealbumin Triglycerides Cholesterol LDL Cholesterol Direct HDL Cholesterol Urine pH Urine WBC (Auto) Urine Creatinine Urine Total Protein Fluid Total Protein Vancomycin Trough Rheumatoid Factor Complement C4 Miscellaneous Test Crossmatch 09/23/16 09/23/16 09/24/16 21:19 23:43 05:16 WBC RBC Hgb Hct MCV MCH MCHC RDW Plt Count Lymph % (Auto) [place] % (Auto) Lymph # [place] # Baso # Seg Neutrophils % Seg Neuts % (Manual) Lymphocytes % (Manual) Monocytes % (Manual) Eosinophils % (Manual) Basophils % (Manual) Nucleated RBC % Seg Neutrophils # Seg Neutrophils # Man Lymphocytes # (Manual) Monocytes # (Manual) Eosinophils # (Manual) PT INR Fibrinogen dRVVT Confirm Interp Factor V Activity POC ABG pH POC ABG pCO2 17.3 L POC ABG pO2 112 H ABG pO2 ABG HCO3 ABG Base Excess ABG Hemoglobin Oxyhemoglobin Sodium Potassium Chloride Carbon Dioxide BUN Creatinine Glucose POC Glucose 143 H 164 H Lactic Acid Calcium Phosphorus Magnesium Direct Bilirubin AST ALT Alkaline Phosphatase Lactate Dehydrogenase Troponin T C-Reactive Protein Total Protein Albumin Prealbumin Triglycerides Cholesterol LDL Cholesterol Direct HDL Cholesterol Urine pH Urine WBC (Auto) Urine Creatinine Urine Total Protein Fluid Total Protein Vancomycin Trough Rheumatoid Factor Complement C4 Miscellaneous Test Crossmatch 09/24/16 09/24/16 09/24/16 05:21 11:58 17:06 WBC RBC Hgb Hct MCV MCH MCHC RDW Plt Count Lymph % (Auto) [place] % (Auto) Lymph # [place] # Baso # Seg Neutrophils % Seg Neuts % (Manual) Lymphocytes % (Manual) Monocytes % (Manual) Eosinophils % (Manual) Basophils % (Manual) Nucleated RBC % Seg Neutrophils # Seg Neutrophils # Man Lymphocytes # (Manual) Monocytes # (Manual) Eosinophils # (Manual) PT INR Fibrinogen dRVVT Confirm Interp Factor V Activity POC ABG pH POC ABG pCO2 POC ABG pO2 ABG pO2 ABG HCO3 ABG Base Excess ABG Hemoglobin Oxyhemoglobin Sodium Potassium Chloride Carbon Dioxide 10 L BUN 103 H Creatinine 4.3 H Glucose 163 H POC Glucose 173 H 167 H Lactic Acid Calcium 6.5 L Phosphorus Magnesium Direct Bilirubin AST ALT Alkaline Phosphatase Lactate Dehydrogenase Troponin T C-Reactive Protein Total Protein Albumin Prealbumin Triglycerides Cholesterol LDL Cholesterol Direct HDL Cholesterol Urine pH Urine WBC (Auto) Urine Creatinine Urine Total Protein Fluid Total Protein Vancomycin Trough Rheumatoid Factor Complement C4 Miscellaneous Test Crossmatch 09/24/16 09/24/16 09/24/16 20:15 21:02 23:48 WBC RBC Hgb Hct MCV MCH MCHC RDW Plt Count Lymph % (Auto) [place] % (Auto) Lymph # [place] # Baso # Seg Neutrophils % Seg Neuts % (Manual) Lymphocytes % (Manual) Monocytes % (Manual) Eosinophils % (Manual) Basophils % (Manual) Nucleated RBC % Seg Neutrophils # Seg Neutrophils # Man Lymphocytes # (Manual) Monocytes # (Manual) Eosinophils # (Manual) PT INR Fibrinogen dRVVT Confirm Interp Factor V Activity POC ABG pH 7.288 L POC ABG pCO2 30.2 L 21.5 L POC ABG pO2 32 L 39 L ABG pO2 ABG HCO3 ABG Base Excess ABG Hemoglobin Oxyhemoglobin Sodium Potassium Chloride Carbon Dioxide BUN Creatinine Glucose POC Glucose 109 H Lactic Acid Calcium Phosphorus Magnesium Direct Bilirubin AST ALT Alkaline Phosphatase Lactate Dehydrogenase Troponin T C-Reactive Protein Total Protein Albumin Prealbumin Triglycerides Cholesterol LDL Cholesterol Direct HDL Cholesterol Urine pH Urine WBC (Auto) Urine Creatinine Urine Total Protein Fluid Total Protein Vancomycin Trough Rheumatoid Factor Complement C4 Miscellaneous Test Crossmatch 09/25/16 09/25/16 09/25/16 04:20 04:20 04:20 WBC RBC 2.58 L Hgb 7.0 L Hct 21.0 L MCV MCH 27 L MCHC RDW 23.8 H Plt Count Lymph % (Auto) [place] % (Auto) Lymph # [place] # Baso # Seg Neutrophils % Seg Neuts % (Manual) Lymphocytes % (Manual) 12.0 L Monocytes % (Manual) Eosinophils % (Manual) 7.0 H Basophils % (Manual) 2.0 H Nucleated RBC % Seg Neutrophils # Seg Neutrophils # Man Lymphocytes # (Manual) 0.9 L Monocytes # (Manual) Eosinophils # (Manual) 0.5 H PT INR Fibrinogen dRVVT Confirm Interp Factor V Activity POC ABG pH POC ABG pCO2 POC ABG pO2 ABG pO2 ABG HCO3 ABG Base Excess ABG Hemoglobin Oxyhemoglobin Sodium Potassium Chloride Carbon Dioxide 15 L BUN 72 H Creatinine 3.8 H Glucose POC Glucose Lactic Acid Calcium 6.0 L Phosphorus 4.60 H Magnesium 1.60 L Direct Bilirubin AST ALT Alkaline Phosphatase Lactate Dehydrogenase Troponin T C-Reactive Protein Total Protein Albumin Prealbumin Triglycerides Cholesterol LDL Cholesterol Direct HDL Cholesterol Urine pH Urine WBC (Auto) Urine Creatinine Urine Total Protein Fluid Total Protein Vancomycin Trough Rheumatoid Factor Complement C4 Miscellaneous Test Crossmatch 09/25/16 09/25/16 09/25/16 04:57 08:02 10:30 WBC RBC Hgb Hct MCV MCH MCHC RDW Plt Count Lymph % (Auto) [place] % (Auto) Lymph # [place] # Baso # Seg Neutrophils % Seg Neuts % (Manual) Lymphocytes % (Manual) Monocytes % (Manual) Eosinophils % (Manual) Basophils % (Manual) Nucleated RBC % Seg Neutrophils # Seg Neutrophils # Man Lymphocytes # (Manual) Monocytes # (Manual) Eosinophils # (Manual) PT INR Fibrinogen dRVVT Confirm Interp Factor V Activity POC ABG pH POC ABG pCO2 24.7 L POC ABG pO2 152 H ABG pO2 ABG HCO3 ABG Base Excess ABG Hemoglobin Oxyhemoglobin Sodium Potassium Chloride Carbon Dioxide BUN Creatinine Glucose POC Glucose 113 H Lactic Acid Calcium Phosphorus Magnesium Direct Bilirubin AST ALT Alkaline Phosphatase Lactate Dehydrogenase Troponin T C-Reactive Protein Total Protein Albumin Prealbumin Triglycerides Cholesterol LDL Cholesterol Direct HDL Cholesterol Urine pH Urine WBC (Auto) Urine Creatinine Urine Total Protein Fluid Total Protein Vancomycin Trough Rheumatoid Factor Complement C4 Miscellaneous Test Crossmatch See Detail 09/25/16 09/25/16 09/25/16 12:05 17:44 23:47 WBC RBC Hgb Hct MCV MCH MCHC RDW Plt Count Lymph % (Auto) [place] % (Auto) Lymph # [place] # [place] # Seg Neutrophils % Seg Neuts % (Manual) Lymphocytes % (Manual) Monocytes % (Manual) Eosinophils % (Manual) Basophils % (Manual) Nucleated RBC % Seg Neutrophils # Seg Neutrophils # Man Lymphocytes # (Manual) Monocytes # (Manual) Eosinophils # (Manual) PT INR Fibrinogen dRVVT Confirm Interp Factor V Activity POC ABG pH POC ABG pCO2 POC ABG pO2 ABG pO2 ABG HCO3 ABG Base Excess ABG Hemoglobin Oxyhemoglobin Sodium Potassium Chloride Carbon Dioxide BUN Creatinine Glucose POC Glucose 117 H 119 H 150 H Lactic Acid Calcium Phosphorus Magnesium Direct Bilirubin AST ALT Alkaline Phosphatase Lactate Dehydrogenase Troponin T C-Reactive Protein Total Protein Albumin Prealbumin Triglycerides Cholesterol LDL Cholesterol Direct HDL Cholesterol Urine pH Urine WBC (Auto) Urine Creatinine Urine Total Protein Fluid Total Protein Vancomycin Trough Rheumatoid Factor Complement C4 Miscellaneous Test Crossmatch 09/26/16 09/26/16 09/26/16 04:25 04:25 04:25 WBC RBC 2.65 L Hgb 7.4 L Hct 21.6 L MCV MCH MCHC RDW 22.5 H Plt Count Lymph % (Auto) [place] % (Auto) Lymph # [place] # Baso # Seg Neutrophils % Seg Neuts % (Manual) Lymphocytes % (Manual) 6.0 L Monocytes % (Manual) Eosinophils % (Manual) 11.0 H Basophils % (Manual) Nucleated RBC % Seg Neutrophils # Seg Neutrophils # Man Lymphocytes # (Manual) 0.4 L Monocytes # (Manual) Eosinophils # (Manual) 0.6 H PT INR Fibrinogen dRVVT Confirm Interp Factor V Activity POC ABG pH POC ABG pCO2 POC ABG pO2 ABG pO2 ABG HCO3 ABG Base Excess ABG Hemoglobin Oxyhemoglobin Sodium Potassium Chloride 97.0 L Carbon Dioxide 19 L BUN 43 H Creatinine 2.6 H Glucose 130 H POC Glucose Lactic Acid 4.40 H* Calcium 6.7 L Phosphorus Magnesium Direct Bilirubin AST ALT Alkaline Phosphatase Lactate Dehydrogenase Troponin T C-Reactive Protein Total Protein Albumin Prealbumin Triglycerides Cholesterol LDL Cholesterol Direct HDL Cholesterol Urine pH Urine WBC (Auto) Urine Creatinine Urine Total Protein Fluid Total Protein Vancomycin Trough Rheumatoid Factor Complement C4 Miscellaneous Test Crossmatch 09/26/16 09/26/16 09/26/16 05:20 11:44 12:12 WBC RBC Hgb Hct MCV MCH MCHC RDW Plt Count Lymph % (Auto) [place] % (Auto) Lymph # [place] # Baso # Seg Neutrophils % Seg Neuts % (Manual) Lymphocytes % (Manual) Monocytes % (Manual) Eosinophils % (Manual) Basophils % (Manual) Nucleated RBC % Seg Neutrophils # Seg Neutrophils # Man Lymphocytes # (Manual) Monocytes # (Manual) Eosinophils # (Manual) PT INR Fibrinogen dRVVT Confirm Interp Factor V Activity POC ABG pH POC ABG pCO2 27.0 L POC ABG pO2 69 L ABG pO2 ABG HCO3 ABG Base Excess ABG Hemoglobin Oxyhemoglobin Sodium Potassium Chloride Carbon Dioxide BUN Creatinine Glucose POC Glucose 121 H 128 H Lactic Acid Calcium Phosphorus Magnesium Direct Bilirubin AST ALT Alkaline Phosphatase Lactate Dehydrogenase Troponin T C-Reactive Protein Total Protein Albumin Prealbumin Triglycerides Cholesterol LDL Cholesterol Direct HDL Cholesterol Urine pH Urine WBC (Auto) Urine Creatinine Urine Total Protein Fluid Total Protein Vancomycin Trough Rheumatoid Factor Complement C4 Miscellaneous Test Crossmatch 09/26/16 09/26/16 09/27/16 18:31 23:40 08:20 WBC RBC Hgb Hct MCV MCH MCHC RDW Plt Count Lymph % (Auto) [place] % (Auto) Lymph # [place] # Baso # Seg Neutrophils % Seg Neuts % (Manual) Lymphocytes % (Manual) Monocytes % (Manual) Eosinophils % (Manual) Basophils % (Manual) Nucleated RBC % Seg Neutrophils # Seg Neutrophils # Man Lymphocytes # (Manual) Monocytes # (Manual) Eosinophils # (Manual) PT INR Fibrinogen dRVVT Confirm Interp Factor V Activity POC ABG pH POC ABG pCO2 POC ABG pO2 ABG pO2 ABG HCO3 ABG Base Excess ABG Hemoglobin Oxyhemoglobin Sodium Potassium Chloride Carbon Dioxide BUN Creatinine Glucose POC Glucose 120 H 133 H Lactic Acid 4.10 H* Calcium Phosphorus Magnesium Direct Bilirubin AST ALT Alkaline Phosphatase Lactate Dehydrogenase Troponin T C-Reactive Protein Total Protein Albumin Prealbumin Triglycerides Cholesterol LDL Cholesterol Direct HDL Cholesterol Urine pH Urine WBC (Auto) Urine Creatinine Urine Total Protein Fluid Total Protein Vancomycin Trough Rheumatoid Factor Complement C4 Miscellaneous Test Crossmatch 09/27/16 09/27/16 09/27/16 11:23 15:00 18:15 WBC RBC Hgb Hct MCV MCH MCHC RDW Plt Count Lymph % (Auto) [place] % (Auto) Lymph # [place] # Baso # Seg Neutrophils % Seg Neuts % (Manual) Lymphocytes % (Manual) Monocytes % (Manual) Eosinophils % (Manual) Basophils % (Manual) Nucleated RBC % Seg Neutrophils # Seg Neutrophils # Man Lymphocytes # (Manual) Monocytes # (Manual) Eosinophils # (Manual) PT INR Fibrinogen dRVVT Confirm Interp Factor V Activity POC ABG pH 7.459 H POC ABG pCO2 27.1 L POC ABG pO2 140 H ABG pO2 ABG HCO3 ABG Base Excess ABG Hemoglobin Oxyhemoglobin Sodium Potassium Chloride Carbon Dioxide BUN Creatinine Glucose POC Glucose 114 H 127 H Lactic Acid Calcium Phosphorus Magnesium Direct Bilirubin AST ALT Alkaline Phosphatase Lactate Dehydrogenase Troponin T C-Reactive Protein Total Protein Albumin Prealbumin Triglycerides Cholesterol LDL Cholesterol Direct HDL Cholesterol Urine pH Urine WBC (Auto) Urine Creatinine Urine Total Protein Fluid Total Protein Vancomycin Trough Rheumatoid Factor Complement C4 Miscellaneous Test Crossmatch 09/27/16 09/27/16 09/28/16 Unknown Unknown 03:45 WBC RBC 2.49 L Hgb 6.8 L Hct 20.7 L MCV MCH 27 L MCHC RDW 22.1 H Plt Count Lymph % (Auto) [place] % (Auto) Lymph # [place] # Baso # Seg Neutrophils % Seg Neuts % (Manual) 32.0 L Lymphocytes % (Manual) 12.0 L Monocytes % (Manual) 11.0 H Eosinophils % (Manual) 10.0 H Basophils % (Manual) Nucleated RBC % Seg Neutrophils # Seg Neutrophils # Man Lymphocytes # (Manual) 1.0 L Monocytes # (Manual) 0.9 H Eosinophils # (Manual) 0.8 H PT INR Fibrinogen dRVVT Confirm Interp Factor V Activity POC ABG pH POC ABG pCO2 POC ABG pO2 ABG pO2 ABG HCO3 ABG Base Excess ABG Hemoglobin Oxyhemoglobin Sodium 135 L 135 L Potassium 3.5 L Chloride 93.6 L 94.4 L Carbon Dioxide 17 L 21 L BUN 45 H 28 H Creatinine 3.3 H 2.5 H Glucose 106 H POC Glucose Lactic Acid Calcium 7.3 L 7.1 L Phosphorus Magnesium Direct Bilirubin AST ALT Alkaline Phosphatase Lactate Dehydrogenase Troponin T C-Reactive Protein Total Protein Albumin Prealbumin Triglycerides Cholesterol LDL Cholesterol Direct HDL Cholesterol Urine pH Urine WBC (Auto) Urine Creatinine Urine Total Protein Fluid Total Protein Vancomycin Trough Rheumatoid Factor Complement C4 Miscellaneous Test Crossmatch 09/28/16 09/28/16 09/28/16 03:45 07:25 11:58 WBC 13.3 H RBC 3.01 L Hgb 8.4 L Hct 25.0 L MCV MCH MCHC RDW 20.5 H Plt Count 128 L Lymph % (Auto) [place] % (Auto) Lymph # [place] # Baso # Seg Neutrophils % Seg Neuts % (Manual) Lymphocytes % (Manual) 7.0 L Monocytes % (Manual) Eosinophils % (Manual) 6.0 H Basophils % (Manual) Nucleated RBC % Seg Neutrophils # Seg Neutrophils # Man Lymphocytes # (Manual) 0.9 L Monocytes # (Manual) Eosinophils # (Manual) 0.8 H PT INR Fibrinogen dRVVT Confirm Interp Factor V Activity POC ABG pH POC ABG pCO2 POC ABG pO2 ABG pO2 ABG HCO3 ABG Base Excess ABG Hemoglobin Oxyhemoglobin Sodium Potassium Chloride Carbon Dioxide BUN Creatinine Glucose POC Glucose 121 H Lactic Acid 4.50 H* Calcium Phosphorus Magnesium Direct Bilirubin AST ALT Alkaline Phosphatase Lactate Dehydrogenase Troponin T C-Reactive Protein Total Protein Albumin Prealbumin Triglycerides Cholesterol LDL Cholesterol Direct HDL Cholesterol Urine pH Urine WBC (Auto) Urine Creatinine Urine Total Protein Fluid Total Protein Vancomycin Trough Rheumatoid Factor Complement C4 Miscellaneous Test Crossmatch 09/29/16 09/29/16 09/29/16 06:45 06:45 06:45 WBC 14.9 H RBC 2.74 L Hgb 7.6 L Hct 23.2 L MCV MCH MCHC RDW 20.5 H Plt Count 81 L Lymph % (Auto) [place] % (Auto) Lymph # [place] # Baso # Seg Neutrophils % Seg Neuts % (Manual) 81.0 H Lymphocytes % (Manual) 4.0 L Monocytes % (Manual) Eosinophils % (Manual) Basophils % (Manual) Nucleated RBC % Seg Neutrophils # Seg Neutrophils # Man 12.1 H Lymphocytes # (Manual) 0.6 L Monocytes # (Manual) Eosinophils # (Manual) PT INR Fibrinogen dRVVT Confirm Interp Factor V Activity POC ABG pH POC ABG pCO2 POC ABG pO2 ABG pO2 ABG HCO3 ABG Base Excess ABG Hemoglobin Oxyhemoglobin Sodium 133 L Potassium 3.4 L Chloride 92.5 L Carbon Dioxide 21 L BUN 33 H Creatinine 3.0 H Glucose POC Glucose Lactic Acid Calcium 6.6 L Phosphorus Magnesium 1.40 L Direct Bilirubin 0.9 H AST ALT Alkaline Phosphatase Lactate Dehydrogenase Troponin T C-Reactive Protein Total Protein 4.3 L Albumin 1.3 L Prealbumin Triglycerides Cholesterol LDL Cholesterol Direct HDL Cholesterol Urine pH Urine WBC (Auto) Urine Creatinine Urine Total Protein Fluid Total Protein Vancomycin Trough Rheumatoid Factor Complement C4 Miscellaneous Test Crossmatch 09/29/16 09/29/16 09/30/16 17:52 20:12 00:07 WBC RBC Hgb Hct MCV MCH MCHC RDW Plt Count Lymph % (Auto) [place] % (Auto) Lymph # [place] # Baso # Seg Neutrophils % Seg Neuts % (Manual) Lymphocytes % (Manual) Monocytes % (Manual) Eosinophils % (Manual) Basophils % (Manual) Nucleated RBC % Seg Neutrophils # Seg Neutrophils # Man Lymphocytes # (Manual) Monocytes # (Manual) Eosinophils # (Manual) PT INR Fibrinogen dRVVT Confirm Interp Factor V Activity POC ABG pH POC ABG pCO2 POC ABG pO2 ABG pO2 ABG HCO3 ABG Base Excess ABG Hemoglobin Oxyhemoglobin Sodium Potassium Chloride Carbon Dioxide BUN Creatinine Glucose POC Glucose 50 L 51 L Lactic Acid Calcium Phosphorus Magnesium Direct Bilirubin AST ALT Alkaline Phosphatase Lactate Dehydrogenase Troponin T 0.204 H* C-Reactive Protein Total Protein Albumin Prealbumin Triglycerides Cholesterol 31 L LDL Cholesterol Direct 4 L HDL Cholesterol 3 L Urine pH Urine WBC (Auto) Urine Creatinine Urine Total Protein Fluid Total Protein Vancomycin Trough Rheumatoid Factor Complement C4 Miscellaneous Test Crossmatch 09/30/16 09/30/16 09/30/16 01:30 05:15 06:10 WBC RBC Hgb Hct MCV MCH MCHC RDW Plt Count Lymph % (Auto) [place] % (Auto) Lymph # [place] # Baso # Seg Neutrophils % Seg Neuts % (Manual) Lymphocytes % (Manual) Monocytes % (Manual) Eosinophils % (Manual) Basophils % (Manual) Nucleated RBC % Seg Neutrophils # Seg Neutrophils # Man Lymphocytes # (Manual) Monocytes # (Manual) Eosinophils # (Manual) PT INR Fibrinogen dRVVT Confirm Interp Factor V Activity POC ABG pH POC ABG pCO2 POC ABG pO2 ABG pO2 ABG HCO3 ABG Base Excess ABG Hemoglobin Oxyhemoglobin Sodium 133 L Potassium 3.2 L Chloride 93.2 L Carbon Dioxide 19 L BUN 36 H Creatinine 3.2 H Glucose 104 H POC Glucose 167 H 146 H Lactic Acid Calcium 6.4 L Phosphorus Magnesium 1.60 L Direct Bilirubin AST ALT Alkaline Phosphatase Lactate Dehydrogenase Troponin T C-Reactive Protein Total Protein Albumin Prealbumin Triglycerides Cholesterol LDL Cholesterol Direct HDL Cholesterol Urine pH Urine WBC (Auto) Urine Creatinine Urine Total Protein Fluid Total Protein Vancomycin Trough Rheumatoid Factor Complement C4 Miscellaneous Test Crossmatch 09/30/16 09/30/16 09/30/16 11:26 13:39 18:38 WBC RBC Hgb Hct MCV MCH MCHC RDW Plt Count Lymph % (Auto) [place] % (Auto) Lymph # [place] # Baso # Seg Neutrophils % Seg Neuts % (Manual) Lymphocytes % (Manual) Monocytes % (Manual) Eosinophils % (Manual) Basophils % (Manual) Nucleated RBC % Seg Neutrophils # Seg Neutrophils # Man Lymphocytes # (Manual) Monocytes # (Manual) Eosinophils # (Manual) PT INR Fibrinogen dRVVT Confirm Interp Factor V Activity POC ABG pH 7.479 H POC ABG pCO2 29.8 L POC ABG pO2 117 H ABG pO2 ABG HCO3 ABG Base Excess ABG Hemoglobin Oxyhemoglobin Sodium Potassium Chloride Carbon Dioxide BUN Creatinine Glucose POC Glucose 140 H 122 H Lactic Acid Calcium Phosphorus Magnesium Direct Bilirubin AST ALT Alkaline Phosphatase Lactate Dehydrogenase Troponin T C-Reactive Protein Total Protein Albumin Prealbumin Triglycerides Cholesterol LDL Cholesterol Direct HDL Cholesterol Urine pH Urine WBC (Auto) Urine Creatinine Urine Total Protein Fluid Total Protein Vancomycin Trough Rheumatoid Factor Complement C4 Miscellaneous Test Crossmatch 10/01/16 10/01/16 10/01/16 06:00 06:00 12:37 WBC 12.6 H RBC 2.75 L Hgb 7.3 L Hct 23.3 L MCV MCH 27 L MCHC RDW 20.6 H Plt Count 72 L Lymph % (Auto) [place] % (Auto) Lymph # [place] # Baso # Seg Neutrophils % Seg Neuts % (Manual) 31.0 L Lymphocytes % (Manual) 8.0 L Monocytes % (Manual) Eosinophils % (Manual) Basophils % (Manual) Nucleated RBC % 3.0 H Seg Neutrophils # Seg Neutrophils # Man Lymphocytes # (Manual) 1.0 L Monocytes # (Manual) Eosinophils # (Manual) PT INR Fibrinogen dRVVT Confirm Interp Factor V Activity POC ABG pH POC ABG pCO2 POC ABG pO2 ABG pO2 ABG HCO3 ABG Base Excess ABG Hemoglobin Oxyhemoglobin Sodium 127 L Potassium Chloride 86.8 L Carbon Dioxide 20 L BUN 42 H Creatinine 3.5 H Glucose POC Glucose 65 L Lactic Acid Calcium 7.0 L Phosphorus Magnesium Direct Bilirubin AST ALT Alkaline Phosphatase Lactate Dehydrogenase Troponin T C-Reactive Protein Total Protein Albumin Prealbumin Triglycerides Cholesterol LDL Cholesterol Direct HDL Cholesterol Urine pH Urine WBC (Auto) Urine Creatinine Urine Total Protein Fluid Total Protein Vancomycin Trough Rheumatoid Factor Complement C4 Miscellaneous Test Crossmatch 10/01/16 10/01/16 10/02/16 17:39 23:32 00:59 WBC RBC Hgb Hct MCV MCH MCHC RDW Plt Count Lymph % (Auto) [place] % (Auto) Lymph # [place] # Baso # Seg Neutrophils % Seg Neuts % (Manual) Lymphocytes % (Manual) Monocytes % (Manual) Eosinophils % (Manual) Basophils % (Manual) Nucleated RBC % Seg Neutrophils # Seg Neutrophils # Man Lymphocytes # (Manual) Monocytes # (Manual) Eosinophils # (Manual) PT INR Fibrinogen dRVVT Confirm Interp Factor V Activity POC ABG pH POC ABG pCO2 POC ABG pO2 ABG pO2 ABG HCO3 ABG Base Excess ABG Hemoglobin Oxyhemoglobin Sodium Potassium Chloride Carbon Dioxide BUN Creatinine Glucose POC Glucose 107 H 52 L 145 H Lactic Acid Calcium Phosphorus Magnesium Direct Bilirubin AST ALT Alkaline Phosphatase Lactate Dehydrogenase Troponin T C-Reactive Protein Total Protein Albumin Prealbumin Triglycerides Cholesterol LDL Cholesterol Direct HDL Cholesterol Urine pH Urine WBC (Auto) Urine Creatinine Urine Total Protein Fluid Total Protein Vancomycin Trough Rheumatoid Factor Complement C4 Miscellaneous Test Crossmatch 10/02/16 10/02/16 10/02/16 10:30 10:50 10:50 WBC 14.7 H RBC 2.76 L Hgb 7.4 L Hct 23.6 L MCV MCH 27 L MCHC RDW 20.2 H Plt Count 79 L Lymph % (Auto) [place] % (Auto) Lymph # [place] # Baso # Seg Neutrophils % Seg Neuts % (Manual) 86.0 H Lymphocytes % (Manual) 6.0 L Monocytes % (Manual) Eosinophils % (Manual) Basophils % (Manual) Nucleated RBC % Seg Neutrophils # Seg Neutrophils # Man 12.6 H Lymphocytes # (Manual) 0.9 L Monocytes # (Manual) Eosinophils # (Manual) PT INR Fibrinogen dRVVT Confirm Interp Factor V Activity POC ABG pH 7.486 H POC ABG pCO2 30.1 L POC ABG pO2 108 H ABG pO2 ABG HCO3 ABG Base Excess ABG Hemoglobin Oxyhemoglobin Sodium 131 L Potassium 3.4 L Chloride 89.9 L Carbon Dioxide BUN 26 H Creatinine 2.6 H Glucose POC Glucose Lactic Acid Calcium 7.0 L Phosphorus Magnesium Direct Bilirubin AST ALT Alkaline Phosphatase Lactate Dehydrogenase Troponin T C-Reactive Protein Total Protein Albumin Prealbumin Triglycerides Cholesterol LDL Cholesterol Direct HDL Cholesterol Urine pH Urine WBC (Auto) Urine Creatinine Urine Total Protein Fluid Total Protein Vancomycin Trough Rheumatoid Factor Complement C4 Miscellaneous Test Crossmatch 10/02/16 10/03/16 10/03/16 23:45 00:45 05:10 WBC 12.9 H RBC 2.77 L Hgb 7.6 L Hct 23.7 L MCV MCH 27 L MCHC RDW 19.7 H Plt Count 89 L Lymph % (Auto) [place] % (Auto) Lymph # [place] # Baso # Seg Neutrophils % Seg Neuts % (Manual) Lymphocytes % (Manual) 8.0 L Monocytes % (Manual) Eosinophils % (Manual) Basophils % (Manual) Nucleated RBC % Seg Neutrophils # 11.9 H Seg Neutrophils # Man Lymphocytes # (Manual) 1.0 L Monocytes # (Manual) Eosinophils # (Manual) PT INR Fibrinogen dRVVT Confirm Interp Factor V Activity POC ABG pH POC ABG pCO2 POC ABG pO2 ABG pO2 ABG HCO3 ABG Base Excess ABG Hemoglobin Oxyhemoglobin Sodium Potassium Chloride Carbon Dioxide BUN Creatinine Glucose POC Glucose 55 L 199 H Lactic Acid Calcium Phosphorus Magnesium Direct Bilirubin AST ALT Alkaline Phosphatase Lactate Dehydrogenase Troponin T C-Reactive Protein Total Protein Albumin Prealbumin Triglycerides Cholesterol LDL Cholesterol Direct HDL Cholesterol Urine pH Urine WBC (Auto) Urine Creatinine Urine Total Protein Fluid Total Protein Vancomycin Trough Rheumatoid Factor Complement C4 Miscellaneous Test Crossmatch 10/03/16 10/03/16 10/03/16 05:10 12:14 13:18 WBC RBC Hgb Hct MCV MCH MCHC RDW Plt Count Lymph % (Auto) [place] % (Auto) Lymph # [place] # Baso # Seg Neutrophils % Seg Neuts % (Manual) Lymphocytes % (Manual) Monocytes % (Manual) Eosinophils % (Manual) Basophils % (Manual) Nucleated RBC % Seg Neutrophils # Seg Neutrophils # Man Lymphocytes # (Manual) Monocytes # (Manual) Eosinophils # (Manual) PT INR Fibrinogen dRVVT Confirm Interp Factor V Activity POC ABG pH POC ABG pCO2 POC ABG pO2 ABG pO2 ABG HCO3 ABG Base Excess ABG Hemoglobin Oxyhemoglobin Sodium 129 L Potassium 3.3 L Chloride 88.8 L Carbon Dioxide 20 L BUN 29 H Creatinine 2.8 H Glucose POC Glucose 68 L 127 H Lactic Acid Calcium 7.2 L Phosphorus Magnesium Direct Bilirubin AST ALT Alkaline Phosphatase Lactate Dehydrogenase Troponin T C-Reactive Protein Total Protein Albumin Prealbumin Triglycerides Cholesterol LDL Cholesterol Direct HDL Cholesterol Urine pH Urine WBC (Auto) Urine Creatinine Urine Total Protein Fluid Total Protein Vancomycin Trough Rheumatoid Factor Complement C4 Miscellaneous Test Crossmatch 10/03/16 10/03/16 10/03/16 14:42 18:21 19:09 WBC RBC Hgb Hct MCV MCH MCHC RDW Plt Count Lymph % (Auto) [place] % (Auto) Lymph # [place] # Baso # Seg Neutrophils % Seg Neuts % (Manual) Lymphocytes % (Manual) Monocytes % (Manual) Eosinophils % (Manual) Basophils % (Manual) Nucleated RBC % Seg Neutrophils # Seg Neutrophils # Man Lymphocytes # (Manual) Monocytes # (Manual) Eosinophils # (Manual) PT INR Fibrinogen dRVVT Confirm Interp Factor V Activity POC ABG pH 7.499 H POC ABG pCO2 28.4 L POC ABG pO2 44 L ABG pO2 ABG HCO3 ABG Base Excess ABG Hemoglobin Oxyhemoglobin Sodium Potassium Chloride Carbon Dioxide BUN Creatinine Glucose POC Glucose 64 L 205 H Lactic Acid Calcium Phosphorus Magnesium Direct Bilirubin AST ALT Alkaline Phosphatase Lactate Dehydrogenase Troponin T C-Reactive Protein Total Protein Albumin Prealbumin Triglycerides Cholesterol LDL Cholesterol Direct HDL Cholesterol Urine pH Urine WBC (Auto) Urine Creatinine Urine Total Protein Fluid Total Protein Vancomycin Trough Rheumatoid Factor Complement C4 Miscellaneous Test Crossmatch 10/03/16 10/04/16 10/04/16 23:33 04:18 06:30 WBC RBC 2.54 L Hgb 7.1 L Hct 21.7 L MCV MCH MCHC RDW 19.5 H Plt Count 76 L Lymph % (Auto) [place] % (Auto) Lymph # [place] # Baso # Seg Neutrophils % Seg Neuts % (Manual) 88.0 H Lymphocytes % (Manual) 6.0 L Monocytes % (Manual) Eosinophils % (Manual) Basophils % (Manual) Nucleated RBC % Seg Neutrophils # Seg Neutrophils # Man 8.8 H Lymphocytes # (Manual) 0.6 L Monocytes # (Manual) Eosinophils # (Manual) PT INR Fibrinogen dRVVT Confirm Interp Factor V Activity POC ABG pH 7.461 H POC ABG pCO2 33.6 L POC ABG pO2 211 H ABG pO2 ABG HCO3 ABG Base Excess ABG Hemoglobin Oxyhemoglobin Sodium Potassium Chloride Carbon Dioxide BUN Creatinine Glucose POC Glucose 136 H Lactic Acid Calcium Phosphorus Magnesium Direct Bilirubin AST ALT Alkaline Phosphatase Lactate Dehydrogenase Troponin T C-Reactive Protein Total Protein Albumin Prealbumin Triglycerides Cholesterol LDL Cholesterol Direct HDL Cholesterol Urine pH Urine WBC (Auto) Urine Creatinine Urine Total Protein Fluid Total Protein Vancomycin Trough Rheumatoid Factor Complement C4 Miscellaneous Test Crossmatch 10/04/16 10/04/16 10/04/16 06:30 11:45 17:54 WBC RBC Hgb Hct MCV MCH MCHC RDW Plt Count Lymph % (Auto) [place] % (Auto) Lymph # [place] # Baso # Seg Neutrophils % Seg Neuts % (Manual) Lymphocytes % (Manual) Monocytes % (Manual) Eosinophils % (Manual) Basophils % (Manual) Nucleated RBC % Seg Neutrophils # Seg Neutrophils # Man Lymphocytes # (Manual) Monocytes # (Manual) Eosinophils # (Manual) PT INR Fibrinogen dRVVT Confirm Interp Factor V Activity POC ABG pH POC ABG pCO2 POC ABG pO2 ABG pO2 ABG HCO3 ABG Base Excess ABG Hemoglobin Oxyhemoglobin Sodium 128 L Potassium Chloride 87.4 L Carbon Dioxide 20 L BUN 34 H Creatinine 2.9 H Glucose 127 H POC Glucose 158 H 160 H Lactic Acid Calcium 7.4 L Phosphorus Magnesium Direct Bilirubin AST ALT Alkaline Phosphatase Lactate Dehydrogenase Troponin T C-Reactive Protein Total Protein Albumin Prealbumin Triglycerides Cholesterol LDL Cholesterol Direct HDL Cholesterol Urine pH Urine WBC (Auto) Urine Creatinine Urine Total Protein Fluid Total Protein Vancomycin Trough Rheumatoid Factor Complement C4 Miscellaneous Test Crossmatch 10/04/16 10/05/16 10/05/16 23:25 04:30 05:00 WBC RBC 2.64 L Hgb 7.5 L Hct 22.6 L MCV MCH MCHC RDW 19.3 H Plt Count 80 L Lymph % (Auto) [place] % (Auto) Lymph # [place] # Baso # Seg Neutrophils % Seg Neuts % (Manual) Lymphocytes % (Manual) 12.0 L Monocytes % (Manual) Eosinophils % (Manual) Basophils % (Manual) Nucleated RBC % Seg Neutrophils # Seg Neutrophils # Man Lymphocytes # (Manual) Monocytes # (Manual) Eosinophils # (Manual) PT INR Fibrinogen dRVVT Confirm Interp Factor V Activity POC ABG pH 7.475 H POC ABG pCO2 33.3 L POC ABG pO2 140 H ABG pO2 ABG HCO3 ABG Base Excess ABG Hemoglobin Oxyhemoglobin Sodium Potassium Chloride Carbon Dioxide BUN Creatinine Glucose POC Glucose 141 H Lactic Acid Calcium Phosphorus Magnesium Direct Bilirubin AST ALT Alkaline Phosphatase Lactate Dehydrogenase Troponin T C-Reactive Protein Total Protein Albumin Prealbumin Triglycerides Cholesterol LDL Cholesterol Direct HDL Cholesterol Urine pH Urine WBC (Auto) Urine Creatinine Urine Total Protein Fluid Total Protein Vancomycin Trough Rheumatoid Factor Complement C4 Miscellaneous Test Crossmatch 10/05/16 10/05/16 10/05/16 05:00 05:09 12:58 WBC RBC Hgb Hct MCV MCH MCHC RDW Plt Count Lymph % (Auto) [place] % (Auto) Lymph # [place] # Baso # Seg Neutrophils % Seg Neuts % (Manual) Lymphocytes % (Manual) Monocytes % (Manual) Eosinophils % (Manual) Basophils % (Manual) Nucleated RBC % Seg Neutrophils # Seg Neutrophils # Man Lymphocytes # (Manual) Monocytes # (Manual) Eosinophils # (Manual) PT INR Fibrinogen dRVVT Confirm Interp Factor V Activity POC ABG pH POC ABG pCO2 POC ABG pO2 ABG pO2 ABG HCO3 ABG Base Excess ABG Hemoglobin Oxyhemoglobin Sodium 131 L Potassium Chloride 94.0 L Carbon Dioxide 20 L BUN 22 H Creatinine 2.0 H Glucose 123 H POC Glucose 166 H 179 H Lactic Acid Calcium 7.7 L Phosphorus 2.20 L D Magnesium Direct Bilirubin AST ALT Alkaline Phosphatase Lactate Dehydrogenase Troponin T C-Reactive Protein Total Protein Albumin Prealbumin Triglycerides Cholesterol LDL Cholesterol Direct HDL Cholesterol Urine pH Urine WBC (Auto) Urine Creatinine Urine Total Protein Fluid Total Protein Vancomycin Trough Rheumatoid Factor Complement C4 Miscellaneous Test Crossmatch 10/05/16 10/05/16 10/05/16 15:50 18:53 23:12 WBC RBC Hgb Hct MCV MCH MCHC RDW Plt Count Lymph % (Auto) [place] % (Auto) Lymph # [place] # Baso # Seg Neutrophils % Seg Neuts % (Manual) Lymphocytes % (Manual) Monocytes % (Manual) Eosinophils % (Manual) Basophils % (Manual) Nucleated RBC % Seg Neutrophils # Seg Neutrophils # Man Lymphocytes # (Manual) Monocytes # (Manual) Eosinophils # (Manual) PT INR Fibrinogen dRVVT Confirm Interp Factor V Activity POC ABG pH POC ABG pCO2 POC ABG pO2 ABG pO2 ABG HCO3 ABG Base Excess ABG Hemoglobin Oxyhemoglobin Sodium Potassium Chloride Carbon Dioxide BUN Creatinine Glucose POC Glucose 150 H 164 H Lactic Acid Calcium Phosphorus Magnesium Direct Bilirubin AST ALT Alkaline Phosphatase Lactate Dehydrogenase Troponin T C-Reactive Protein Total Protein Albumin Prealbumin Triglycerides Cholesterol LDL Cholesterol Direct HDL Cholesterol Urine pH Urine WBC (Auto) Urine Creatinine Urine Total Protein Fluid Total Protein Vancomycin Trough Rheumatoid Factor Complement C4 Miscellaneous Test Crossmatch See Detail 10/06/16 10/06/16 10/06/16 03:50 03:50 04:53 WBC RBC 3.00 L Hgb 8.6 L Hct 25.8 L MCV MCH MCHC RDW 17.9 H Plt Count 65 L Lymph % (Auto) [place] % (Auto) Lymph # [place] # Baso # Seg Neutrophils % Seg Neuts % (Manual) 30.0 L Lymphocytes % (Manual) 5.0 L Monocytes % (Manual) Eosinophils % (Manual) Basophils % (Manual) Nucleated RBC % Seg Neutrophils # Seg Neutrophils # Man Lymphocytes # (Manual) 0.4 L Monocytes # (Manual) Eosinophils # (Manual) PT INR Fibrinogen dRVVT Confirm Interp Factor V Activity POC ABG pH 7.310 L POC ABG pCO2 49.0 H POC ABG pO2 ABG pO2 ABG HCO3 ABG Base Excess ABG Hemoglobin Oxyhemoglobin Sodium 133 L Potassium Chloride 95.9 L Carbon Dioxide BUN 26 H Creatinine 2.0 H Glucose 116 H POC Glucose Lactic Acid Calcium 7.8 L Phosphorus Magnesium Direct Bilirubin AST ALT Alkaline Phosphatase Lactate Dehydrogenase Troponin T C-Reactive Protein Total Protein Albumin Prealbumin Triglycerides Cholesterol LDL Cholesterol Direct HDL Cholesterol Urine pH Urine WBC (Auto) Urine Creatinine Urine Total Protein Fluid Total Protein Vancomycin Trough Rheumatoid Factor Complement C4 Miscellaneous Test Crossmatch 10/06/16 10/06/16 10/06/16 05:23 11:52 18:34 WBC RBC Hgb Hct MCV MCH MCHC RDW Plt Count Lymph % (Auto) [place] % (Auto) Lymph # [place] # Baso # Seg Neutrophils % Seg Neuts % (Manual) Lymphocytes % (Manual) Monocytes % (Manual) Eosinophils % (Manual) Basophils % (Manual) Nucleated RBC % Seg Neutrophils # Seg Neutrophils # Man Lymphocytes # (Manual) Monocytes # (Manual) Eosinophils # (Manual) PT INR Fibrinogen dRVVT Confirm Interp Factor V Activity POC ABG pH POC ABG pCO2 POC ABG pO2 ABG pO2 ABG HCO3 ABG Base Excess ABG Hemoglobin Oxyhemoglobin Sodium Potassium Chloride Carbon Dioxide BUN Creatinine Glucose POC Glucose 126 H 116 H 129 H Lactic Acid Calcium Phosphorus Magnesium Direct Bilirubin AST ALT Alkaline Phosphatase Lactate Dehydrogenase Troponin T C-Reactive Protein Total Protein Albumin Prealbumin Triglycerides Cholesterol LDL Cholesterol Direct HDL Cholesterol Urine pH Urine WBC (Auto) Urine Creatinine Urine Total Protein Fluid Total Protein Vancomycin Trough Rheumatoid Factor Complement C4 Miscellaneous Test Crossmatch 10/07/16 10/07/16 10/07/16 03:45 05:00 10:00 WBC 17.0 H RBC 2.68 L Hgb 7.3 L Hct 25.3 L MCV MCH 27 L MCHC 29 L RDW 19.6 H Plt Count 74 L Lymph % (Auto) [place] % (Auto) Lymph # [place] # Baso # Seg Neutrophils % Seg Neuts % (Manual) Lymphocytes % (Manual) 12.0 L Monocytes % (Manual) Eosinophils % (Manual) Basophils % (Manual) Nucleated RBC % 4.0 H Seg Neutrophils # Seg Neutrophils # Man 10.7 H Lymphocytes # (Manual) Monocytes # (Manual) Eosinophils # (Manual) PT INR Fibrinogen dRVVT Confirm Interp Factor V Activity POC ABG pH POC ABG pCO2 POC ABG pO2 ABG pO2 ABG HCO3 ABG Base Excess ABG Hemoglobin Oxyhemoglobin Sodium 130 L Potassium 3.2 L Chloride 93.9 L Carbon Dioxide 20 L BUN 44 H Creatinine 2.7 H Glucose 129 H POC Glucose Lactic Acid Calcium 7.4 L Phosphorus Magnesium Direct Bilirubin AST ALT 6 L Alkaline Phosphatase 195 H Lactate Dehydrogenase Troponin T C-Reactive Protein Total Protein 4.9 L Albumin 1.0 L Prealbumin Triglycerides Cholesterol LDL Cholesterol Direct HDL Cholesterol Urine pH Urine WBC (Auto) Urine Creatinine Urine Total Protein Fluid Total Protein Vancomycin Trough Rheumatoid Factor Complement C4 Miscellaneous Test Flexitest 1 H Crossmatch 10/07/16 10/07/16 10/07/16 10:00 11:24 18:10 WBC RBC Hgb Hct MCV MCH MCHC RDW Plt Count Lymph % (Auto) [place] % (Auto) Lymph # [place] # Baso # Seg Neutrophils % Seg Neuts % (Manual) Lymphocytes % (Manual) Monocytes % (Manual) Eosinophils % (Manual) Basophils % (Manual) Nucleated RBC % Seg Neutrophils # Seg Neutrophils # Man Lymphocytes # (Manual) Monocytes # (Manual) Eosinophils # (Manual) PT INR Fibrinogen dRVVT Confirm Interp Factor V Activity POC ABG pH POC ABG pCO2 POC ABG pO2 ABG pO2 ABG HCO3 ABG Base Excess ABG Hemoglobin Oxyhemoglobin Sodium Potassium Chloride Carbon Dioxide BUN Creatinine Glucose POC Glucose 116 H 130 H Lactic Acid Calcium Phosphorus Magnesium Direct Bilirubin AST ALT Alkaline Phosphatase Lactate Dehydrogenase Troponin T C-Reactive Protein 19.40 H Total Protein Albumin Prealbumin Triglycerides Cholesterol LDL Cholesterol Direct HDL Cholesterol Urine pH Urine WBC (Auto) Urine Creatinine Urine Total Protein Fluid Total Protein Vancomycin Trough Rheumatoid Factor Complement C4 Miscellaneous Test Crossmatch 10/07/16 10/08/16 10/08/16 18:30 00:00 04:00 WBC RBC Hgb Hct MCV MCH MCHC RDW Plt Count Lymph % (Auto) [place] % (Auto) Lymph # [place] # Baso # Seg Neutrophils % Seg Neuts % (Manual) Lymphocytes % (Manual) Monocytes % (Manual) Eosinophils % (Manual) Basophils % (Manual) Nucleated RBC % Seg Neutrophils # Seg Neutrophils # Man Lymphocytes # (Manual) Monocytes # (Manual) Eosinophils # (Manual) PT INR Fibrinogen dRVVT Confirm Interp Factor V Activity POC ABG pH POC ABG pCO2 POC ABG pO2 ABG pO2 ABG HCO3 ABG Base Excess ABG Hemoglobin Oxyhemoglobin Sodium 132 L Potassium 3.3 L Chloride 93.6 L Carbon Dioxide 17 L BUN 59 H Creatinine 2.7 H Glucose 121 H POC Glucose 122 H Lactic Acid Calcium 7.6 L Phosphorus Magnesium Direct Bilirubin AST ALT Alkaline Phosphatase Lactate Dehydrogenase Troponin T C-Reactive Protein Total Protein Albumin Prealbumin Triglycerides Cholesterol LDL Cholesterol Direct HDL Cholesterol Urine pH Urine WBC (Auto) > 182.0 H Urine Creatinine Urine Total Protein Fluid Total Protein Vancomycin Trough Rheumatoid Factor Complement C4 Miscellaneous Test Crossmatch 10/08/16 10/08/16 10/08/16 04:30 05:30 11:51 WBC RBC 5.15 H Hgb 14.4 H D Hct 44.5 H D MCV MCH MCHC RDW 19.5 H Plt Count 56 L Lymph % (Auto) [place] % (Auto) Lymph # [place] # Baso # Seg Neutrophils % Seg Neuts % (Manual) 24.0 L Lymphocytes % (Manual) 8.0 L Monocytes % (Manual) Eosinophils % (Manual) Basophils % (Manual) Nucleated RBC % 9.0 H Seg Neutrophils # Seg Neutrophils # Man Lymphocytes # (Manual) 0.7 L Monocytes # (Manual) Eosinophils # (Manual) PT INR Fibrinogen dRVVT Confirm Interp Factor V Activity POC ABG pH POC ABG pCO2 POC ABG pO2 ABG pO2 ABG HCO3 ABG Base Excess ABG Hemoglobin Oxyhemoglobin Sodium Potassium Chloride Carbon Dioxide BUN Creatinine Glucose POC Glucose 125 H 150 H Lactic Acid Calcium Phosphorus Magnesium Direct Bilirubin AST ALT Alkaline Phosphatase Lactate Dehydrogenase Troponin T C-Reactive Protein Total Protein Albumin Prealbumin Triglycerides Cholesterol LDL Cholesterol Direct HDL Cholesterol Urine pH Urine WBC (Auto) Urine Creatinine Urine Total Protein Fluid Total Protein Vancomycin Trough Rheumatoid Factor Complement C4 Miscellaneous Test Crossmatch 10/08/16 10/08/16 10/08/16 12:49 17:07 19:30 WBC RBC Hgb 7.1 L D Hct 22.4 L D MCV MCH MCHC RDW Plt Count Lymph % (Auto) [place] % (Auto) Lymph # [place] # Baso # Seg Neutrophils % Seg Neuts % (Manual) Lymphocytes % (Manual) Monocytes % (Manual) Eosinophils % (Manual) Basophils % (Manual) Nucleated RBC % Seg Neutrophils # Seg Neutrophils # Man Lymphocytes # (Manual) Monocytes # (Manual) Eosinophils # (Manual) PT INR Fibrinogen dRVVT Confirm Interp Factor V Activity POC ABG pH POC ABG pCO2 28.2 L POC ABG pO2 111 H ABG pO2 ABG HCO3 ABG Base Excess ABG Hemoglobin Oxyhemoglobin Sodium Potassium Chloride Carbon Dioxide BUN Creatinine Glucose POC Glucose 145 H Lactic Acid Calcium Phosphorus Magnesium Direct Bilirubin AST ALT Alkaline Phosphatase Lactate Dehydrogenase Troponin T C-Reactive Protein Total Protein Albumin Prealbumin Triglycerides Cholesterol LDL Cholesterol Direct HDL Cholesterol Urine pH Urine WBC (Auto) Urine Creatinine Urine Total Protein Fluid Total Protein Vancomycin Trough Rheumatoid Factor Complement C4 Miscellaneous Test Crossmatch 10/08/16 10/09/16 10/09/16 19:30 03:45 03:45 WBC 12.6 H RBC 2.36 L Hgb 6.7 L Hct 21.1 L MCV MCH MCHC RDW 19.5 H Plt Count 75 L Lymph % (Auto) [place] % (Auto) Lymph # [place] # Baso # Seg Neutrophils % Seg Neuts % (Manual) Lymphocytes % (Manual) Monocytes % (Manual) 10.0 H Eosinophils % (Manual) Basophils % (Manual) Nucleated RBC % 3.0 H Seg Neutrophils # Seg Neutrophils # Man Lymphocytes # (Manual) Monocytes # (Manual) 1.3 H Eosinophils # (Manual) PT 18.0 H INR 1.41 H Fibrinogen dRVVT Confirm Interp Factor V Activity POC ABG pH POC ABG pCO2 POC ABG pO2 ABG pO2 ABG HCO3 ABG Base Excess ABG Hemoglobin Oxyhemoglobin Sodium 135 L Potassium Chloride Carbon Dioxide 17 L BUN 81 H Creatinine 3.2 H Glucose 109 H POC Glucose Lactic Acid Calcium 7.4 L Phosphorus 4.60 H D Magnesium Direct Bilirubin AST ALT Alkaline Phosphatase Lactate Dehydrogenase Troponin T C-Reactive Protein Total Protein Albumin Prealbumin Triglycerides Cholesterol LDL Cholesterol Direct HDL Cholesterol Urine pH Urine WBC (Auto) Urine Creatinine Urine Total Protein Fluid Total Protein Vancomycin Trough Rheumatoid Factor Complement C4 Miscellaneous Test Crossmatch 10/09/16 10/09/16 10/09/16 03:45 05:14 07:20 WBC RBC Hgb Hct MCV MCH MCHC RDW Plt Count Lymph % (Auto) [place] % (Auto) Lymph # [place] # Baso # Seg Neutrophils % Seg Neuts % (Manual) Lymphocytes % (Manual) Monocytes % (Manual) Eosinophils % (Manual) Basophils % (Manual) Nucleated RBC % Seg Neutrophils # Seg Neutrophils # Man Lymphocytes # (Manual) Monocytes # (Manual) Eosinophils # (Manual) PT 19.0 H INR 1.51 H Fibrinogen dRVVT Confirm Interp Factor V Activity POC ABG pH POC ABG pCO2 POC ABG pO2 ABG pO2 ABG HCO3 ABG Base Excess ABG Hemoglobin Oxyhemoglobin Sodium Potassium Chloride Carbon Dioxide BUN Creatinine Glucose POC Glucose 151 H Lactic Acid Calcium Phosphorus Magnesium Direct Bilirubin AST ALT Alkaline Phosphatase Lactate Dehydrogenase Troponin T C-Reactive Protein Total Protein Albumin Prealbumin Triglycerides Cholesterol LDL Cholesterol Direct HDL Cholesterol Urine pH Urine WBC (Auto) Urine Creatinine Urine Total Protein Fluid Total Protein Vancomycin Trough Rheumatoid Factor Complement C4 Miscellaneous Test Crossmatch See Detail 10/09/16 10/09/16 10/09/16 11:46 16:20 16:43 WBC RBC Hgb 7.2 L Hct 22.2 L MCV MCH MCHC RDW Plt Count Lymph % (Auto) [place] % (Auto) Lymph # [place] # Baso # Seg Neutrophils % Seg Neuts % (Manual) Lymphocytes % (Manual) Monocytes % (Manual) Eosinophils % (Manual) Basophils % (Manual) Nucleated RBC % Seg Neutrophils # Seg Neutrophils # Man Lymphocytes # (Manual) Monocytes # (Manual) Eosinophils # (Manual) PT INR Fibrinogen dRVVT Confirm Interp Factor V Activity POC ABG pH POC ABG pCO2 POC ABG pO2 ABG pO2 ABG HCO3 ABG Base Excess ABG Hemoglobin Oxyhemoglobin Sodium Potassium Chloride Carbon Dioxide BUN Creatinine Glucose POC Glucose 133 H 141 H Lactic Acid Calcium Phosphorus Magnesium Direct Bilirubin AST ALT Alkaline Phosphatase Lactate Dehydrogenase Troponin T C-Reactive Protein Total Protein Albumin Prealbumin Triglycerides Cholesterol LDL Cholesterol Direct HDL Cholesterol Urine pH Urine WBC (Auto) Urine Creatinine Urine Total Protein Fluid Total Protein Vancomycin Trough Rheumatoid Factor Complement C4 Miscellaneous Test Crossmatch 10/10/16 10/10/16 10/10/16 05:00 05:00 11:19 WBC 18.5 H RBC 2.19 L Hgb 6.4 L Hct 19.6 L* MCV MCH MCHC RDW 19.3 H Plt Count 93 L Lymph % (Auto) [place] % (Auto) Lymph # [place] # Baso # Seg Neutrophils % Seg Neuts % (Manual) Lymphocytes % (Manual) 10.0 L Monocytes % (Manual) Eosinophils % (Manual) Basophils % (Manual) Nucleated RBC % 4.0 H Seg Neutrophils # Seg Neutrophils # Man 11.3 H Lymphocytes # (Manual) Monocytes # (Manual) Eosinophils # (Manual) PT INR Fibrinogen dRVVT Confirm Interp Factor V Activity POC ABG pH POC ABG pCO2 POC ABG pO2 ABG pO2 ABG HCO3 ABG Base Excess ABG Hemoglobin Oxyhemoglobin Sodium Potassium 5.7 H D Chloride Carbon Dioxide 16 L BUN 94 H Creatinine 3.1 H Glucose 131 H POC Glucose 153 H Lactic Acid Calcium 8.2 L Phosphorus 5.10 H Magnesium 2.40 H Direct Bilirubin 0.3 H AST ALT < 5 L Alkaline Phosphatase 319 H Lactate Dehydrogenase Troponin T C-Reactive Protein Total Protein 5.1 L Albumin 1.0 L Prealbumin Triglycerides Cholesterol LDL Cholesterol Direct HDL Cholesterol Urine pH Urine WBC (Auto) Urine Creatinine Urine Total Protein Fluid Total Protein Vancomycin Trough Rheumatoid Factor Complement C4 Miscellaneous Test Crossmatch 10/10/16 10/10/16 10/11/16 17:50 23:30 04:15 WBC RBC Hgb Hct MCV MCH MCHC RDW Plt Count Lymph % (Auto) [place] % (Auto) Lymph # [place] # Baso # Seg Neutrophils % Seg Neuts % (Manual) Lymphocytes % (Manual) Monocytes % (Manual) Eosinophils % (Manual) Basophils % (Manual) Nucleated RBC % Seg Neutrophils # Seg Neutrophils # Man Lymphocytes # (Manual) Monocytes # (Manual) Eosinophils # (Manual) PT INR Fibrinogen dRVVT Confirm Interp Factor V Activity POC ABG pH POC ABG pCO2 POC ABG pO2 ABG pO2 ABG HCO3 ABG Base Excess ABG Hemoglobin Oxyhemoglobin Sodium Potassium Chloride 96.4 L Carbon Dioxide 21 L BUN 57 H Creatinine 2.1 H Glucose 151 H POC Glucose 146 H 141 H Lactic Acid Calcium 8.3 L Phosphorus Magnesium Direct Bilirubin AST ALT Alkaline Phosphatase Lactate Dehydrogenase Troponin T C-Reactive Protein Total Protein Albumin Prealbumin Triglycerides Cholesterol LDL Cholesterol Direct HDL Cholesterol Urine pH Urine WBC (Auto) Urine Creatinine Urine Total Protein Fluid Total Protein Vancomycin Trough Rheumatoid Factor Complement C4 Miscellaneous Test Crossmatch 10/11/16 10/11/16 10/11/16 04:15 04:15 05:30 WBC 28.3 H RBC 3.12 L Hgb 9.3 L Hct 28.7 L D MCV MCH MCHC RDW 17.7 H Plt Count 128 L Lymph % (Auto) [place] % (Auto) Lymph # [place] # Baso # Seg Neutrophils % Seg Neuts % (Manual) Lymphocytes % (Manual) Monocytes % (Manual) Eosinophils % (Manual) Basophils % (Manual) Nucleated RBC % Seg Neutrophils # Seg Neutrophils # Man Lymphocytes # (Manual) Monocytes # (Manual) Eosinophils # (Manual) PT INR Fibrinogen dRVVT Confirm Interp Factor V Activity POC ABG pH POC ABG pCO2 POC ABG pO2 ABG pO2 ABG HCO3 ABG Base Excess ABG Hemoglobin Oxyhemoglobin Sodium Potassium Chloride Carbon Dioxide BUN Creatinine Glucose POC Glucose 167 H Lactic Acid Calcium Phosphorus Magnesium Direct Bilirubin AST ALT Alkaline Phosphatase Lactate Dehydrogenase Troponin T C-Reactive Protein 15.80 H Total Protein Albumin Prealbumin Triglycerides Cholesterol LDL Cholesterol Direct HDL Cholesterol Urine pH Urine WBC (Auto) Urine Creatinine Urine Total Protein Fluid Total Protein Vancomycin Trough Rheumatoid Factor Complement C4 Miscellaneous Test Crossmatch 10/11/16 10/11/16 10/11/16 11:40 15:49 23:57 WBC RBC Hgb Hct MCV MCH MCHC RDW Plt Count Lymph % (Auto) [place] % (Auto) Lymph # [place] # Baso # Seg Neutrophils % Seg Neuts % (Manual) Lymphocytes % (Manual) Monocytes % (Manual) Eosinophils % (Manual) Basophils % (Manual) Nucleated RBC % Seg Neutrophils # Seg Neutrophils # Man Lymphocytes # (Manual) Monocytes # (Manual) Eosinophils # (Manual) PT INR Fibrinogen dRVVT Confirm Interp Factor V Activity POC ABG pH POC ABG pCO2 POC ABG pO2 ABG pO2 ABG HCO3 ABG Base Excess ABG Hemoglobin Oxyhemoglobin Sodium Potassium Chloride Carbon Dioxide BUN Creatinine Glucose POC Glucose 139 H 168 H 161 H Lactic Acid Calcium Phosphorus Magnesium Direct Bilirubin AST ALT Alkaline Phosphatase Lactate Dehydrogenase Troponin T C-Reactive Protein Total Protein Albumin Prealbumin Triglycerides Cholesterol LDL Cholesterol Direct HDL Cholesterol Urine pH Urine WBC (Auto) Urine Creatinine Urine Total Protein Fluid Total Protein Vancomycin Trough Rheumatoid Factor Complement C4 Miscellaneous Test Crossmatch 10/12/16 10/12/16 10/12/16 04:40 04:40 05:44 WBC 22.5 H RBC 2.88 L Hgb 8.8 L Hct 26.8 L MCV MCH MCHC RDW 17.8 H Plt Count Lymph % (Auto) [place] % (Auto) Lymph # [place] # Baso # Seg Neutrophils % Seg Neuts % (Manual) Lymphocytes % (Manual) Monocytes % (Manual) Eosinophils % (Manual) Basophils % (Manual) Nucleated RBC % Seg Neutrophils # Seg Neutrophils # Man Lymphocytes # (Manual) Monocytes # (Manual) Eosinophils # (Manual) PT INR Fibrinogen dRVVT Confirm Interp Factor V Activity POC ABG pH POC ABG pCO2 POC ABG pO2 ABG pO2 ABG HCO3 ABG Base Excess ABG Hemoglobin Oxyhemoglobin Sodium 134 L Potassium Chloride 93.0 L Carbon Dioxide BUN 74 H Creatinine 2.5 H Glucose 137 H POC Glucose 158 H Lactic Acid Calcium 8.2 L Phosphorus Magnesium Direct Bilirubin AST ALT Alkaline Phosphatase Lactate Dehydrogenase Troponin T C-Reactive Protein Total Protein Albumin Prealbumin Triglycerides Cholesterol LDL Cholesterol Direct HDL Cholesterol Urine pH Urine WBC (Auto) Urine Creatinine Urine Total Protein Fluid Total Protein Vancomycin Trough Rheumatoid Factor Complement C4 Miscellaneous Test Crossmatch 10/12/16 10/12/16 10/12/16 12:27 18:18 23:46 WBC RBC Hgb Hct MCV MCH MCHC RDW Plt Count Lymph % (Auto) [place] % (Auto) Lymph # [place] # Baso # Seg Neutrophils % Seg Neuts % (Manual) Lymphocytes % (Manual) Monocytes % (Manual) Eosinophils % (Manual) Basophils % (Manual) Nucleated RBC % Seg Neutrophils # Seg Neutrophils # Man Lymphocytes # (Manual) Monocytes # (Manual) Eosinophils # (Manual) PT INR Fibrinogen dRVVT Confirm Interp Factor V Activity POC ABG pH POC ABG pCO2 POC ABG pO2 ABG pO2 ABG HCO3 ABG Base Excess ABG Hemoglobin Oxyhemoglobin Sodium Potassium Chloride Carbon Dioxide BUN Creatinine Glucose POC Glucose 153 H 140 H 150 H Lactic Acid Calcium Phosphorus Magnesium Direct Bilirubin AST ALT Alkaline Phosphatase Lactate Dehydrogenase Troponin T C-Reactive Protein Total Protein Albumin Prealbumin Triglycerides Cholesterol LDL Cholesterol Direct HDL Cholesterol Urine pH Urine WBC (Auto) Urine Creatinine Urine Total Protein Fluid Total Protein Vancomycin Trough Rheumatoid Factor Complement C4 Miscellaneous Test Crossmatch 10/13/16 10/13/16 10/13/16 06:22 09:20 12:29 WBC RBC Hgb Hct MCV MCH MCHC RDW Plt Count Lymph % (Auto) [place] % (Auto) Lymph # [place] # Baso # Seg Neutrophils % Seg Neuts % (Manual) Lymphocytes % (Manual) Monocytes % (Manual) Eosinophils % (Manual) Basophils % (Manual) Nucleated RBC % Seg Neutrophils # Seg Neutrophils # Man Lymphocytes # (Manual) Monocytes # (Manual) Eosinophils # (Manual) PT INR Fibrinogen dRVVT Confirm Interp Factor V Activity POC ABG pH POC ABG pCO2 POC ABG pO2 ABG pO2 ABG HCO3 ABG Base Excess ABG Hemoglobin Oxyhemoglobin Sodium Potassium Chloride Carbon Dioxide BUN Creatinine Glucose POC Glucose 165 H 193 H Lactic Acid Calcium Phosphorus Magnesium Direct Bilirubin AST ALT Alkaline Phosphatase Lactate Dehydrogenase Troponin T C-Reactive Protein Total Protein Albumin Prealbumin Triglycerides Cholesterol LDL Cholesterol Direct HDL Cholesterol Urine pH Urine WBC (Auto) Urine Creatinine Urine Total Protein Fluid Total Protein Vancomycin Trough Rheumatoid Factor Complement C4 Miscellaneous Test Flexitest 1 H Crossmatch 10/13/16 10/13/16 10/13/16 18:09 Unknown Unknown WBC 23.4 H RBC 2.83 L Hgb 8.7 L Hct 26.1 L MCV MCH MCHC RDW 18.1 H Plt Count Lymph % (Auto) [place] % (Auto) Lymph # [place] # Baso # Seg Neutrophils % Seg Neuts % (Manual) Lymphocytes % (Manual) Monocytes % (Manual) Eosinophils % (Manual) Basophils % (Manual) Nucleated RBC % Seg Neutrophils # Seg Neutrophils # Man Lymphocytes # (Manual) Monocytes # (Manual) Eosinophils # (Manual) PT INR Fibrinogen dRVVT Confirm Interp Factor V Activity POC ABG pH POC ABG pCO2 POC ABG pO2 ABG pO2 ABG HCO3 ABG Base Excess ABG Hemoglobin Oxyhemoglobin Sodium Potassium Chloride 95.8 L Carbon Dioxide BUN 82 H Creatinine 2.6 H Glucose 152 H POC Glucose 166 H Lactic Acid Calcium Phosphorus Magnesium Direct Bilirubin AST ALT Alkaline Phosphatase Lactate Dehydrogenase Troponin T C-Reactive Protein Total Protein Albumin Prealbumin Triglycerides Cholesterol LDL Cholesterol Direct HDL Cholesterol Urine pH Urine WBC (Auto) Urine Creatinine Urine Total Protein Fluid Total Protein Vancomycin Trough Rheumatoid Factor Complement C4 Miscellaneous Test Crossmatch 10/14/16 10/14/16 10/14/16 05:38 06:35 08:10 WBC 20.7 H RBC 2.81 L Hgb 8.4 L Hct 27.2 L MCV MCH MCHC RDW 19.4 H Plt Count Lymph % (Auto) [place] % (Auto) Lymph # [place] # Baso # Seg Neutrophils % Seg Neuts % (Manual) Lymphocytes % (Manual) Monocytes % (Manual) Eosinophils % (Manual) Basophils % (Manual) Nucleated RBC % Seg Neutrophils # Seg Neutrophils # Man Lymphocytes # (Manual) Monocytes # (Manual) Eosinophils # (Manual) PT INR Fibrinogen dRVVT Confirm Interp Factor V Activity POC ABG pH POC ABG pCO2 POC ABG pO2 ABG pO2 ABG HCO3 ABG Base Excess ABG Hemoglobin Oxyhemoglobin Sodium Potassium Chloride Carbon Dioxide BUN 58 H Creatinine 1.9 H Glucose 169 H POC Glucose 195 H Lactic Acid Calcium Phosphorus Magnesium Direct Bilirubin AST ALT Alkaline Phosphatase Lactate Dehydrogenase Troponin T C-Reactive Protein Total Protein Albumin Prealbumin Triglycerides Cholesterol LDL Cholesterol Direct HDL Cholesterol Urine pH Urine WBC (Auto) Urine Creatinine Urine Total Protein Fluid Total Protein Vancomycin Trough Rheumatoid Factor Complement C4 Miscellaneous Test Crossmatch 10/14/16 10/14/16 10/14/16 11:44 17:13 23:28 WBC RBC Hgb Hct MCV MCH MCHC RDW Plt Count Lymph % (Auto) [place] % (Auto) Lymph # [place] # Baso # Seg Neutrophils % Seg Neuts % (Manual) Lymphocytes % (Manual) Monocytes % (Manual) Eosinophils % (Manual) Basophils % (Manual) Nucleated RBC % Seg Neutrophils # Seg Neutrophils # Man Lymphocytes # (Manual) Monocytes # (Manual) Eosinophils # (Manual) PT INR Fibrinogen dRVVT Confirm Interp Factor V Activity POC ABG pH POC ABG pCO2 POC ABG pO2 ABG pO2 ABG HCO3 ABG Base Excess ABG Hemoglobin Oxyhemoglobin Sodium Potassium Chloride Carbon Dioxide BUN Creatinine Glucose POC Glucose 174 H 121 H 151 H Lactic Acid Calcium Phosphorus Magnesium Direct Bilirubin AST ALT Alkaline Phosphatase Lactate Dehydrogenase Troponin T C-Reactive Protein Total Protein Albumin Prealbumin Triglycerides Cholesterol LDL Cholesterol Direct HDL Cholesterol Urine pH Urine WBC (Auto) Urine Creatinine Urine Total Protein Fluid Total Protein Vancomycin Trough Rheumatoid Factor Complement C4 Miscellaneous Test Crossmatch 10/15/16 10/15/16 10/15/16 05:06 12:26 17:48 WBC RBC Hgb Hct MCV MCH MCHC RDW Plt Count Lymph % (Auto) [place] % (Auto) Lymph # [place] # Baso # Seg Neutrophils % Seg Neuts % (Manual) Lymphocytes % (Manual) Monocytes % (Manual) Eosinophils % (Manual) Basophils % (Manual) Nucleated RBC % Seg Neutrophils # Seg Neutrophils # Man Lymphocytes # (Manual) Monocytes # (Manual) Eosinophils # (Manual) PT INR Fibrinogen dRVVT Confirm Interp Factor V Activity POC ABG pH POC ABG pCO2 POC ABG pO2 ABG pO2 ABG HCO3 ABG Base Excess ABG Hemoglobin Oxyhemoglobin Sodium Potassium Chloride Carbon Dioxide BUN Creatinine Glucose POC Glucose 151 H 149 H 153 H Lactic Acid Calcium Phosphorus Magnesium Direct Bilirubin AST ALT Alkaline Phosphatase Lactate Dehydrogenase Troponin T C-Reactive Protein Total Protein Albumin Prealbumin Triglycerides Cholesterol LDL Cholesterol Direct HDL Cholesterol Urine pH Urine WBC (Auto) Urine Creatinine Urine Total Protein Fluid Total Protein Vancomycin Trough Rheumatoid Factor Complement C4 Miscellaneous Test Crossmatch 10/15/16 10/15/16 10/16/16 Unknown Unknown 00:02 WBC 23.4 H RBC 2.78 L Hgb 8.5 L Hct 25.7 L MCV MCH MCHC RDW 18.7 H Plt Count Lymph % (Auto) [place] % (Auto) Lymph # [place] # Baso # Seg Neutrophils % Seg Neuts % (Manual) Lymphocytes % (Manual) Monocytes % (Manual) Eosinophils % (Manual) Basophils % (Manual) Nucleated RBC % Seg Neutrophils # Seg Neutrophils # Man Lymphocytes # (Manual) Monocytes # (Manual) Eosinophils # (Manual) PT INR Fibrinogen dRVVT Confirm Interp Factor V Activity POC ABG pH POC ABG pCO2 POC ABG pO2 ABG pO2 ABG HCO3 ABG Base Excess ABG Hemoglobin Oxyhemoglobin Sodium Potassium Chloride Carbon Dioxide BUN 73 H Creatinine 2.3 H Glucose 120 H POC Glucose 137 H Lactic Acid Calcium Phosphorus Magnesium Direct Bilirubin AST ALT Alkaline Phosphatase Lactate Dehydrogenase Troponin T C-Reactive Protein Total Protein Albumin Prealbumin Triglycerides Cholesterol LDL Cholesterol Direct HDL Cholesterol Urine pH Urine WBC (Auto) Urine Creatinine Urine Total Protein Fluid Total Protein Vancomycin Trough Rheumatoid Factor Complement C4 Miscellaneous Test Crossmatch 10/16/16 10/16/16 10/16/16 05:44 06:25 06:25 WBC 22.5 H RBC 2.76 L Hgb 8.3 L Hct 25.2 L MCV MCH MCHC RDW 18.3 H Plt Count Lymph % (Auto) [place] % (Auto) Lymph # [place] # Baso # Seg Neutrophils % Seg Neuts % (Manual) Lymphocytes % (Manual) Monocytes % (Manual) Eosinophils % (Manual) Basophils % (Manual) Nucleated RBC % Seg Neutrophils # Seg Neutrophils # Man Lymphocytes # (Manual) Monocytes # (Manual) Eosinophils # (Manual) PT INR Fibrinogen dRVVT Confirm Interp Factor V Activity POC ABG pH POC ABG pCO2 POC ABG pO2 ABG pO2 ABG HCO3 ABG Base Excess ABG Hemoglobin Oxyhemoglobin Sodium Potassium Chloride Carbon Dioxide BUN 92 H Creatinine 3.0 H Glucose 138 H POC Glucose 110 H Lactic Acid Calcium Phosphorus Magnesium Direct Bilirubin AST ALT Alkaline Phosphatase Lactate Dehydrogenase Troponin T C-Reactive Protein Total Protein Albumin Prealbumin Triglycerides Cholesterol LDL Cholesterol Direct HDL Cholesterol Urine pH Urine WBC (Auto) Urine Creatinine Urine Total Protein Fluid Total Protein Vancomycin Trough Rheumatoid Factor Complement C4 Miscellaneous Test Crossmatch 10/16/16 10/16/16 10/16/16 11:27 11:48 17:36 WBC RBC Hgb Hct MCV MCH MCHC RDW Plt Count Lymph % (Auto) [place] % (Auto) Lymph # [place] # Baso # Seg Neutrophils % Seg Neuts % (Manual) Lymphocytes % (Manual) Monocytes % (Manual) Eosinophils % (Manual) Basophils % (Manual) Nucleated RBC % Seg Neutrophils # Seg Neutrophils # Man Lymphocytes # (Manual) Monocytes # (Manual) Eosinophils # (Manual) PT INR Fibrinogen dRVVT Confirm Interp Factor V Activity POC ABG pH 7.582 H POC ABG pCO2 27.4 L POC ABG pO2 110 H ABG pO2 ABG HCO3 ABG Base Excess ABG Hemoglobin Oxyhemoglobin Sodium Potassium Chloride Carbon Dioxide BUN Creatinine Glucose POC Glucose 121 H 133 H Lactic Acid Calcium Phosphorus Magnesium Direct Bilirubin AST ALT Alkaline Phosphatase Lactate Dehydrogenase Troponin T C-Reactive Protein Total Protein Albumin Prealbumin Triglycerides Cholesterol LDL Cholesterol Direct HDL Cholesterol Urine pH Urine WBC (Auto) Urine Creatinine Urine Total Protein Fluid Total Protein Vancomycin Trough Rheumatoid Factor Complement C4 Miscellaneous Test Crossmatch 10/16/16 10/17/16 10/17/16 20:48 04:24 04:24 WBC 21.4 H RBC 2.72 L Hgb 8.0 L Hct 25.2 L MCV MCH MCHC RDW 18.0 H Plt Count Lymph % (Auto) [place] % (Auto) Lymph # [place] # Baso # Seg Neutrophils % Seg Neuts % (Manual) Lymphocytes % (Manual) Monocytes % (Manual) Eosinophils % (Manual) Basophils % (Manual) Nucleated RBC % Seg Neutrophils # Seg Neutrophils # Man Lymphocytes # (Manual) Monocytes # (Manual) Eosinophils # (Manual) PT INR Fibrinogen dRVVT Confirm Interp Factor V Activity POC ABG pH 7.561 H POC ABG pCO2 24.4 L POC ABG pO2 77 L ABG pO2 ABG HCO3 ABG Base Excess ABG Hemoglobin Oxyhemoglobin Sodium 148 H Potassium Chloride Carbon Dioxide BUN 104 H Creatinine 3.0 H Glucose 149 H POC Glucose Lactic Acid Calcium Phosphorus Magnesium Direct Bilirubin AST ALT Alkaline Phosphatase 138 H Lactate Dehydrogenase Troponin T C-Reactive Protein Total Protein 6.2 L Albumin 1.5 L Prealbumin Triglycerides Cholesterol LDL Cholesterol Direct HDL Cholesterol Urine pH Urine WBC (Auto) Urine Creatinine Urine Total Protein Fluid Total Protein Vancomycin Trough Rheumatoid Factor Complement C4 Miscellaneous Test Crossmatch 10/17/16 10/17/16 10/17/16 06:02 12:17 17:14 WBC RBC Hgb Hct MCV MCH MCHC RDW Plt Count Lymph % (Auto) [place] % (Auto) Lymph # [place] # Baso # Seg Neutrophils % Seg Neuts % (Manual) Lymphocytes % (Manual) Monocytes % (Manual) Eosinophils % (Manual) Basophils % (Manual) Nucleated RBC % Seg Neutrophils # Seg Neutrophils # Man Lymphocytes # (Manual) Monocytes # (Manual) Eosinophils # (Manual) PT INR Fibrinogen dRVVT Confirm Interp Factor V Activity POC ABG pH POC ABG pCO2 POC ABG pO2 ABG pO2 ABG HCO3 ABG Base Excess ABG Hemoglobin Oxyhemoglobin Sodium Potassium Chloride Carbon Dioxide BUN Creatinine Glucose POC Glucose 170 H 167 H 126 H Lactic Acid Calcium Phosphorus Magnesium Direct Bilirubin AST ALT Alkaline Phosphatase Lactate Dehydrogenase Troponin T C-Reactive Protein Total Protein Albumin Prealbumin Triglycerides Cholesterol LDL Cholesterol Direct HDL Cholesterol Urine pH Urine WBC (Auto) Urine Creatinine Urine Total Protein Fluid Total Protein Vancomycin Trough Rheumatoid Factor Complement C4 Miscellaneous Test Crossmatch 10/17/16 10/18/16 10/18/16 23:17 04:00 04:00 WBC 20.7 H RBC 2.47 L Hgb 7.4 L Hct 22.9 L MCV MCH MCHC RDW 17.5 H Plt Count Lymph % (Auto) [place] % (Auto) Lymph # [place] # Baso # Seg Neutrophils % Seg Neuts % (Manual) Lymphocytes % (Manual) Monocytes % (Manual) Eosinophils % (Manual) Basophils % (Manual) Nucleated RBC % Seg Neutrophils # Seg Neutrophils # Man Lymphocytes # (Manual) Monocytes # (Manual) Eosinophils # (Manual) PT INR Fibrinogen dRVVT Confirm Interp Factor V Activity POC ABG pH POC ABG pCO2 POC ABG pO2 ABG pO2 ABG HCO3 ABG Base Excess ABG Hemoglobin Oxyhemoglobin Sodium 149 H Potassium Chloride 107.9 H Carbon Dioxide 20 L BUN 117 H Creatinine 3.2 H Glucose 119 H POC Glucose 121 H Lactic Acid Calcium Phosphorus Magnesium Direct Bilirubin AST ALT Alkaline Phosphatase Lactate Dehydrogenase Troponin T C-Reactive Protein Total Protein Albumin Prealbumin Triglycerides Cholesterol LDL Cholesterol Direct HDL Cholesterol Urine pH Urine WBC (Auto) Urine Creatinine Urine Total Protein Fluid Total Protein Vancomycin Trough Rheumatoid Factor Complement C4 Miscellaneous Test Crossmatch 10/18/16 10/18/16 10/18/16 05:23 10:46 17:30 WBC RBC Hgb Hct MCV MCH MCHC RDW Plt Count Lymph % (Auto) [place] % (Auto) Lymph # [place] # Baso # Seg Neutrophils % Seg Neuts % (Manual) Lymphocytes % (Manual) Monocytes % (Manual) Eosinophils % (Manual) Basophils % (Manual) Nucleated RBC % Seg Neutrophils # Seg Neutrophils # Man Lymphocytes # (Manual) Monocytes # (Manual) Eosinophils # (Manual) PT INR Fibrinogen dRVVT Confirm Interp Factor V Activity POC ABG pH POC ABG pCO2 POC ABG pO2 ABG pO2 ABG HCO3 ABG Base Excess ABG Hemoglobin Oxyhemoglobin Sodium Potassium Chloride Carbon Dioxide BUN Creatinine Glucose POC Glucose 119 H 155 H 124 H Lactic Acid Calcium Phosphorus Magnesium Direct Bilirubin AST ALT Alkaline Phosphatase Lactate Dehydrogenase Troponin T C-Reactive Protein Total Protein Albumin Prealbumin Triglycerides Cholesterol LDL Cholesterol Direct HDL Cholesterol Urine pH Urine WBC (Auto) Urine Creatinine Urine Total Protein Fluid Total Protein Vancomycin Trough Rheumatoid Factor Complement C4 Miscellaneous Test Crossmatch 10/19/16 10/19/16 10/19/16 04:00 04:00 05:25 WBC 17.4 H RBC 2.54 L Hgb 7.7 L Hct 23.6 L MCV MCH MCHC RDW 17.3 H Plt Count Lymph % (Auto) [place] % (Auto) Lymph # [place] # Baso # Seg Neutrophils % Seg Neuts % (Manual) Lymphocytes % (Manual) Monocytes % (Manual) Eosinophils % (Manual) Basophils % (Manual) Nucleated RBC % Seg Neutrophils # Seg Neutrophils # Man Lymphocytes # (Manual) Monocytes # (Manual) Eosinophils # (Manual) PT INR Fibrinogen dRVVT Confirm Interp Factor V Activity POC ABG pH POC ABG pCO2 POC ABG pO2 ABG pO2 ABG HCO3 ABG Base Excess ABG Hemoglobin Oxyhemoglobin Sodium Potassium Chloride Carbon Dioxide BUN 72 H Creatinine 2.1 H Glucose 116 H POC Glucose 119 H Lactic Acid Calcium Phosphorus Magnesium Direct Bilirubin AST ALT Alkaline Phosphatase Lactate Dehydrogenase Troponin T C-Reactive Protein Total Protein Albumin Prealbumin Triglycerides Cholesterol LDL Cholesterol Direct HDL Cholesterol Urine pH Urine WBC (Auto) Urine Creatinine Urine Total Protein Fluid Total Protein Vancomycin Trough Rheumatoid Factor Complement C4 Miscellaneous Test Crossmatch 10/19/16 10/19/16 10/20/16 11:46 23:59 06:00 WBC RBC Hgb Hct MCV MCH MCHC RDW Plt Count Lymph % (Auto) [place] % (Auto) Lymph # [place] # Baso # Seg Neutrophils % Seg Neuts % (Manual) Lymphocytes % (Manual) Monocytes % (Manual) Eosinophils % (Manual) Basophils % (Manual) Nucleated RBC % Seg Neutrophils # Seg Neutrophils # Man Lymphocytes # (Manual) Monocytes # (Manual) Eosinophils # (Manual) PT INR Fibrinogen dRVVT Confirm Interp Factor V Activity POC ABG pH POC ABG pCO2 POC ABG pO2 ABG pO2 ABG HCO3 ABG Base Excess ABG Hemoglobin Oxyhemoglobin Sodium Potassium Chloride Carbon Dioxide 17 L BUN 94 H Creatinine 2.7 H Glucose POC Glucose 116 H 117 H Lactic Acid Calcium Phosphorus Magnesium Direct Bilirubin AST ALT Alkaline Phosphatase Lactate Dehydrogenase Troponin T C-Reactive Protein Total Protein Albumin Prealbumin Triglycerides Cholesterol LDL Cholesterol Direct HDL Cholesterol Urine pH Urine WBC (Auto) Urine Creatinine Urine Total Protein Fluid Total Protein Vancomycin Trough Rheumatoid Factor Complement C4 Miscellaneous Test Crossmatch 10/20/16 10/20/16 10/20/16 06:00 11:49 16:00 WBC 19.7 H RBC 2.51 L Hgb 7.7 L Hct 23.5 L MCV MCH MCHC RDW 17.5 H Plt Count Lymph % (Auto) [place] % (Auto) Lymph # [place] # Baso # Seg Neutrophils % Seg Neuts % (Manual) Lymphocytes % (Manual) Monocytes % (Manual) Eosinophils % (Manual) Basophils % (Manual) Nucleated RBC % Seg Neutrophils # Seg Neutrophils # Man Lymphocytes # (Manual) Monocytes # (Manual) Eosinophils # (Manual) PT INR Fibrinogen dRVVT Confirm Interp Factor V Activity POC ABG pH POC ABG pCO2 POC ABG pO2 ABG pO2 ABG HCO3 ABG Base Excess ABG Hemoglobin Oxyhemoglobin Sodium Potassium Chloride Carbon Dioxide BUN Creatinine Glucose POC Glucose 117 H Lactic Acid Calcium Phosphorus Magnesium Direct Bilirubin AST ALT Alkaline Phosphatase Lactate Dehydrogenase Troponin T C-Reactive Protein Total Protein Albumin Prealbumin Triglycerides Cholesterol LDL Cholesterol Direct HDL Cholesterol Urine pH Urine WBC (Auto) Urine Creatinine Urine Total Protein Fluid Total Protein Vancomycin Trough Rheumatoid Factor Complement C4 Miscellaneous Test Flexitest 1 H Crossmatch 10/20/16 10/20/16 10/21/16 18:36 23:39 04:00 WBC RBC Hgb Hct MCV MCH MCHC RDW Plt Count Lymph % (Auto) [place] % (Auto) Lymph # [place] # Baso # Seg Neutrophils % Seg Neuts % (Manual) Lymphocytes % (Manual) Monocytes % (Manual) Eosinophils % (Manual) Basophils % (Manual) Nucleated RBC % Seg Neutrophils # Seg Neutrophils # Man Lymphocytes # (Manual) Monocytes # (Manual) Eosinophils # (Manual) PT INR Fibrinogen dRVVT Confirm Interp Factor V Activity POC ABG pH POC ABG pCO2 POC ABG pO2 ABG pO2 ABG HCO3 ABG Base Excess ABG Hemoglobin Oxyhemoglobin Sodium Potassium 5.4 H D Chloride Carbon Dioxide 15 L BUN 110 H Creatinine 3.0 H Glucose POC Glucose 127 H 114 H Lactic Acid Calcium Phosphorus Magnesium Direct Bilirubin AST ALT Alkaline Phosphatase Lactate Dehydrogenase Troponin T C-Reactive Protein Total Protein Albumin Prealbumin Triglycerides Cholesterol LDL Cholesterol Direct HDL Cholesterol Urine pH Urine WBC (Auto) Urine Creatinine Urine Total Protein Fluid Total Protein Vancomycin Trough Rheumatoid Factor Complement C4 Miscellaneous Test Crossmatch 10/21/16 10/21/16 10/22/16 05:54 23:46 05:18 WBC RBC Hgb Hct MCV MCH MCHC RDW Plt Count Lymph % (Auto) [place] % (Auto) Lymph # [place] # Baso # Seg Neutrophils % Seg Neuts % (Manual) Lymphocytes % (Manual) Monocytes % (Manual) Eosinophils % (Manual) Basophils % (Manual) Nucleated RBC % Seg Neutrophils # Seg Neutrophils # Man Lymphocytes # (Manual) Monocytes # (Manual) Eosinophils # (Manual) PT INR Fibrinogen dRVVT Confirm Interp Factor V Activity POC ABG pH POC ABG pCO2 POC ABG pO2 ABG pO2 ABG HCO3 ABG Base Excess ABG Hemoglobin Oxyhemoglobin Sodium Potassium Chloride Carbon Dioxide BUN Creatinine Glucose POC Glucose 119 H 108 H 109 H Lactic Acid Calcium Phosphorus Magnesium Direct Bilirubin AST ALT Alkaline Phosphatase Lactate Dehydrogenase Troponin T C-Reactive Protein Total Protein Albumin Prealbumin Triglycerides Cholesterol LDL Cholesterol Direct HDL Cholesterol Urine pH Urine WBC (Auto) Urine Creatinine Urine Total Protein Fluid Total Protein Vancomycin Trough Rheumatoid Factor Complement C4 Miscellaneous Test Crossmatch 10/22/16 10/22/16 10/22/16 06:40 06:40 06:40 WBC 14.0 H RBC 2.03 L Hgb 7.0 L Hct 20.5 L MCV 98 H MCH 34 H MCHC 35 H RDW 17.8 H Plt Count Lymph % (Auto) [place] % (Auto) 9.9 H Lymph # [place] # 1.4 H Baso # 0.2 H Seg Neutrophils % 72.0 H Seg Neuts % (Manual) Lymphocytes % (Manual) Monocytes % (Manual) Eosinophils % (Manual) Basophils % (Manual) Nucleated RBC % Seg Neutrophils # 10.0 H Seg Neutrophils # Man Lymphocytes # (Manual) Monocytes # (Manual) Eosinophils # (Manual) PT INR Fibrinogen dRVVT Confirm Interp Factor V Activity POC ABG pH POC ABG pCO2 POC ABG pO2 ABG pO2 ABG HCO3 ABG Base Excess ABG Hemoglobin Oxyhemoglobin Sodium 130 L D Potassium Chloride 92.4 L Carbon Dioxide 20 L BUN 50 H Creatinine 1.6 H Glucose 589 H* POC Glucose Lactic Acid Calcium 7.8 L D Phosphorus Magnesium 1.60 L Direct Bilirubin AST ALT Alkaline Phosphatase Lactate Dehydrogenase Troponin T C-Reactive Protein Total Protein Albumin Prealbumin Triglycerides Cholesterol LDL Cholesterol Direct HDL Cholesterol Urine pH Urine WBC (Auto) Urine Creatinine Urine Total Protein Fluid Total Protein Vancomycin Trough Rheumatoid Factor Complement C4 Miscellaneous Test Crossmatch 10/22/16 10/22/16 10/22/16 11:39 16:44 23:36 WBC RBC Hgb Hct MCV MCH MCHC RDW Plt Count Lymph % (Auto) [place] % (Auto) Lymph # [place] # Baso # Seg Neutrophils % Seg Neuts % (Manual) Lymphocytes % (Manual) Monocytes % (Manual) Eosinophils % (Manual) Basophils % (Manual) Nucleated RBC % Seg Neutrophils # Seg Neutrophils # Man Lymphocytes # (Manual) Monocytes # (Manual) Eosinophils # (Manual) PT INR Fibrinogen dRVVT Confirm Interp Factor V Activity POC ABG pH POC ABG pCO2 POC ABG pO2 ABG pO2 ABG HCO3 ABG Base Excess ABG Hemoglobin Oxyhemoglobin Sodium Potassium Chloride Carbon Dioxide BUN Creatinine Glucose POC Glucose 142 H 163 H 123 H Lactic Acid Calcium Phosphorus Magnesium Direct Bilirubin AST ALT Alkaline Phosphatase Lactate Dehydrogenase Troponin T C-Reactive Protein Total Protein Albumin Prealbumin Triglycerides Cholesterol LDL Cholesterol Direct HDL Cholesterol Urine pH Urine WBC (Auto) Urine Creatinine Urine Total Protein Fluid Total Protein Vancomycin Trough Rheumatoid Factor Complement C4 Miscellaneous Test Crossmatch 10/23/16 10/23/16 10/23/16 04:58 06:00 12:12 WBC RBC Hgb Hct MCV MCH MCHC RDW Plt Count Lymph % (Auto) [place] % (Auto) Lymph # [place] # Baso # Seg Neutrophils % Seg Neuts % (Manual) Lymphocytes % (Manual) Monocytes % (Manual) Eosinophils % (Manual) Basophils % (Manual) Nucleated RBC % Seg Neutrophils # Seg Neutrophils # Man Lymphocytes # (Manual) Monocytes # (Manual) Eosinophils # (Manual) PT INR Fibrinogen dRVVT Confirm Interp Factor V Activity POC ABG pH POC ABG pCO2 POC ABG pO2 ABG pO2 ABG HCO3 ABG Base Excess ABG Hemoglobin Oxyhemoglobin Sodium 133 L Potassium 3.5 L Chloride 96.1 L Carbon Dioxide 18 L BUN 76 H Creatinine 2.1 H Glucose POC Glucose 133 H 138 H Lactic Acid Calcium 8.3 L Phosphorus Magnesium Direct Bilirubin AST ALT Alkaline Phosphatase Lactate Dehydrogenase Troponin T C-Reactive Protein Total Protein Albumin Prealbumin Triglycerides Cholesterol LDL Cholesterol Direct HDL Cholesterol Urine pH Urine WBC (Auto) Urine Creatinine Urine Total Protein Fluid Total Protein Vancomycin Trough Rheumatoid Factor Complement C4 Miscellaneous Test Crossmatch 10/23/16 10/23/16 10/24/16 16:53 23:37 04:00 WBC RBC Hgb Hct MCV MCH MCHC RDW Plt Count Lymph % (Auto) [place] % (Auto) Lymph # [place] # Baso # Seg Neutrophils % Seg Neuts % (Manual) Lymphocytes % (Manual) Monocytes % (Manual) Eosinophils % (Manual) Basophils % (Manual) Nucleated RBC % Seg Neutrophils # Seg Neutrophils # Man Lymphocytes # (Manual) Monocytes # (Manual) Eosinophils # (Manual) PT INR Fibrinogen dRVVT Confirm Interp Factor V Activity POC ABG pH POC ABG pCO2 POC ABG pO2 ABG pO2 ABG HCO3 ABG Base Excess ABG Hemoglobin Oxyhemoglobin Sodium 131 L Potassium Chloride 94.5 L Carbon Dioxide 19 L BUN 97 H Creatinine 2.6 H Glucose 110 H POC Glucose 125 H 123 H Lactic Acid Calcium 8.3 L Phosphorus Magnesium Direct Bilirubin AST ALT Alkaline Phosphatase Lactate Dehydrogenase Troponin T C-Reactive Protein Total Protein Albumin Prealbumin Triglycerides Cholesterol LDL Cholesterol Direct HDL Cholesterol Urine pH Urine WBC (Auto) Urine Creatinine Urine Total Protein Fluid Total Protein Vancomycin Trough Rheumatoid Factor Complement C4 Miscellaneous Test Crossmatch 10/24/16 10/24/16 10/24/16 07:49 11:39 17:52 WBC RBC Hgb 6.0 L Hct 19.7 L* MCV MCH MCHC RDW Plt Count Lymph % (Auto) [place] % (Auto) Lymph # [place] # Baso # Seg Neutrophils % Seg Neuts % (Manual) Lymphocytes % (Manual) Monocytes % (Manual) Eosinophils % (Manual) Basophils % (Manual) Nucleated RBC % Seg Neutrophils # Seg Neutrophils # Man Lymphocytes # (Manual) Monocytes # (Manual) Eosinophils # (Manual) PT INR Fibrinogen dRVVT Confirm Interp Factor V Activity POC ABG pH POC ABG pCO2 POC ABG pO2 ABG pO2 ABG HCO3 ABG Base Excess ABG Hemoglobin Oxyhemoglobin Sodium Potassium Chloride Carbon Dioxide BUN Creatinine Glucose POC Glucose 106 H 158 H Lactic Acid Calcium Phosphorus Magnesium Direct Bilirubin AST ALT Alkaline Phosphatase Lactate Dehydrogenase Troponin T C-Reactive Protein Total Protein Albumin Prealbumin Triglycerides Cholesterol LDL Cholesterol Direct HDL Cholesterol Urine pH Urine WBC (Auto) Urine Creatinine Urine Total Protein Fluid Total Protein Vancomycin Trough Rheumatoid Factor Complement C4 Miscellaneous Test Crossmatch 10/24/16 10/24/16 10/24/16 20:00 22:27 Unknown WBC RBC Hgb 9.4 L D Hct 27.5 L D MCV MCH MCHC RDW Plt Count Lymph % (Auto) [place] % (Auto) Lymph # [place] # Baso # Seg Neutrophils % Seg Neuts % (Manual) Lymphocytes % (Manual) Monocytes % (Manual) Eosinophils % (Manual) Basophils % (Manual) Nucleated RBC % Seg Neutrophils # Seg Neutrophils # Man Lymphocytes # (Manual) Monocytes # (Manual) Eosinophils # (Manual) PT INR Fibrinogen dRVVT Confirm Interp Factor V Activity POC ABG pH POC ABG pCO2 POC ABG pO2 ABG pO2 ABG HCO3 ABG Base Excess ABG Hemoglobin Oxyhemoglobin Sodium Potassium Chloride Carbon Dioxide BUN Creatinine Glucose POC Glucose 125 H Lactic Acid Calcium Phosphorus Magnesium Direct Bilirubin AST ALT Alkaline Phosphatase Lactate Dehydrogenase Troponin T C-Reactive Protein Total Protein Albumin Prealbumin Triglycerides Cholesterol LDL Cholesterol Direct HDL Cholesterol Urine pH Urine WBC (Auto) Urine Creatinine Urine Total Protein Fluid Total Protein Vancomycin Trough Rheumatoid Factor Complement C4 Miscellaneous Test Crossmatch See Detail 10/25/16 10/25/16 10/25/16 04:00 04:00 04:00 WBC 14.2 H RBC 2.98 L Hgb 9.0 L Hct 26.2 L MCV MCH MCHC RDW 16.6 H Plt Count Lymph % (Auto) [place] % (Auto) 10.7 H Lymph # [place] # 1.5 H Baso # Seg Neutrophils % 73.6 H Seg Neuts % (Manual) Lymphocytes % (Manual) Monocytes % (Manual) Eosinophils % (Manual) Basophils % (Manual) Nucleated RBC % Seg Neutrophils # 10.5 H Seg Neutrophils # Man Lymphocytes # (Manual) Monocytes # (Manual) Eosinophils # (Manual) PT INR Fibrinogen dRVVT Confirm Interp Factor V Activity POC ABG pH POC ABG pCO2 POC ABG pO2 ABG pO2 ABG HCO3 ABG Base Excess ABG Hemoglobin Oxyhemoglobin Sodium 132 L Potassium Chloride 94.7 L Carbon Dioxide BUN 51 H Creatinine 1.6 H Glucose 130 H POC Glucose Lactic Acid Calcium 8.3 L Phosphorus 1.60 L D Magnesium Direct Bilirubin AST ALT Alkaline Phosphatase Lactate Dehydrogenase Troponin T C-Reactive Protein Total Protein Albumin Prealbumin Triglycerides Cholesterol LDL Cholesterol Direct HDL Cholesterol Urine pH Urine WBC (Auto) Urine Creatinine Urine Total Protein Fluid Total Protein Vancomycin Trough Rheumatoid Factor Complement C4 Miscellaneous Test Crossmatch 10/25/16 10/25/16 10/25/16 04:32 11:48 17:22 WBC RBC Hgb Hct MCV MCH MCHC RDW Plt Count Lymph % (Auto) [place] % (Auto) Lymph # [place] # Baso # Seg Neutrophils % Seg Neuts % (Manual) Lymphocytes % (Manual) Monocytes % (Manual) Eosinophils % (Manual) Basophils % (Manual) Nucleated RBC % Seg Neutrophils # Seg Neutrophils # Man Lymphocytes # (Manual) Monocytes # (Manual) Eosinophils # (Manual) PT INR Fibrinogen dRVVT Confirm Interp Factor V Activity POC ABG pH POC ABG pCO2 POC ABG pO2 ABG pO2 ABG HCO3 ABG Base Excess ABG Hemoglobin Oxyhemoglobin Sodium Potassium Chloride Carbon Dioxide BUN Creatinine Glucose POC Glucose 124 H 171 H 120 H Lactic Acid Calcium Phosphorus Magnesium Direct Bilirubin AST ALT Alkaline Phosphatase Lactate Dehydrogenase Troponin T C-Reactive Protein Total Protein Albumin Prealbumin Triglycerides Cholesterol LDL Cholesterol Direct HDL Cholesterol Urine pH Urine WBC (Auto) Urine Creatinine Urine Total Protein Fluid Total Protein Vancomycin Trough Rheumatoid Factor Complement C4 Miscellaneous Test Crossmatch 10/26/16 10/26/16 10/26/16 04:54 07:06 07:06 WBC 16.9 H RBC 3.06 L Hgb 9.1 L Hct 26.9 L MCV MCH MCHC RDW 16.9 H Plt Count Lymph % (Auto) [place] % (Auto) Lymph # [place] # Baso # Seg Neutrophils % Seg Neuts % (Manual) 71.0 H Lymphocytes % (Manual) 5.0 L Monocytes % (Manual) 12.0 H Eosinophils % (Manual) Basophils % (Manual) Nucleated RBC % Seg Neutrophils # Seg Neutrophils # Man 12.0 H Lymphocytes # (Manual) 0.8 L Monocytes # (Manual) 2.0 H Eosinophils # (Manual) PT INR Fibrinogen dRVVT Confirm Interp Factor V Activity POC ABG pH POC ABG pCO2 POC ABG pO2 ABG pO2 ABG HCO3 ABG Base Excess ABG Hemoglobin Oxyhemoglobin Sodium 135 L Potassium Chloride 97.1 L Carbon Dioxide BUN 73 H Creatinine 2.2 H Glucose 117 H POC Glucose 123 H Lactic Acid Calcium Phosphorus 1.70 L Magnesium Direct Bilirubin AST ALT Alkaline Phosphatase Lactate Dehydrogenase Troponin T C-Reactive Protein Total Protein Albumin Prealbumin Triglycerides Cholesterol LDL Cholesterol Direct HDL Cholesterol Urine pH Urine WBC (Auto) Urine Creatinine Urine Total Protein Fluid Total Protein Vancomycin Trough Rheumatoid Factor Complement C4 Miscellaneous Test Crossmatch 10/26/16 10/26/16 10/26/16 12:12 17:29 23:42 WBC RBC Hgb Hct MCV MCH MCHC RDW Plt Count Lymph % (Auto) [place] % (Auto) Lymph # [place] # Baso # Seg Neutrophils % Seg Neuts % (Manual) Lymphocytes % (Manual) Monocytes % (Manual) Eosinophils % (Manual) Basophils % (Manual) Nucleated RBC % Seg Neutrophils # Seg Neutrophils # Man Lymphocytes # (Manual) Monocytes # (Manual) Eosinophils # (Manual) PT INR Fibrinogen dRVVT Confirm Interp Factor V Activity POC ABG pH POC ABG pCO2 POC ABG pO2 ABG pO2 ABG HCO3 ABG Base Excess ABG Hemoglobin Oxyhemoglobin Sodium Potassium Chloride Carbon Dioxide BUN Creatinine Glucose POC Glucose 126 H 161 H 118 H Lactic Acid Calcium Phosphorus Magnesium Direct Bilirubin AST ALT Alkaline Phosphatase Lactate Dehydrogenase Troponin T C-Reactive Protein Total Protein Albumin Prealbumin Triglycerides Cholesterol LDL Cholesterol Direct HDL Cholesterol Urine pH Urine WBC (Auto) Urine Creatinine Urine Total Protein Fluid Total Protein Vancomycin Trough Rheumatoid Factor Complement C4 Miscellaneous Test Crossmatch 10/27/16 10/27/16 10/27/16 05:03 06:30 06:30 WBC 13.9 H RBC 3.09 L Hgb 9.2 L Hct 27.5 L MCV MCH MCHC RDW 17.0 H Plt Count Lymph % (Auto) [place] % (Auto) Lymph # [place] # Baso # Seg Neutrophils % Seg Neuts % (Manual) 78.0 H Lymphocytes % (Manual) Monocytes % (Manual) Eosinophils % (Manual) Basophils % (Manual) Nucleated RBC % 2.0 H Seg Neutrophils # Seg Neutrophils # Man 10.8 H Lymphocytes # (Manual) Monocytes # (Manual) 1.0 H Eosinophils # (Manual) PT INR Fibrinogen dRVVT Confirm Interp Factor V Activity POC ABG pH POC ABG pCO2 POC ABG pO2 ABG pO2 ABG HCO3 ABG Base Excess ABG Hemoglobin Oxyhemoglobin Sodium Potassium Chloride Carbon Dioxide BUN 40 H Creatinine 1.5 H Glucose 135 H POC Glucose 107 H Lactic Acid Calcium 8.3 L Phosphorus 1.30 L D Magnesium Direct Bilirubin AST ALT Alkaline Phosphatase Lactate Dehydrogenase Troponin T C-Reactive Protein Total Protein Albumin Prealbumin Triglycerides Cholesterol LDL Cholesterol Direct HDL Cholesterol Urine pH Urine WBC (Auto) Urine Creatinine Urine Total Protein Fluid Total Protein Vancomycin Trough Rheumatoid Factor Complement C4 Miscellaneous Test Crossmatch 10/27/16 10/27/16 10/27/16 13:27 18:07 23:40 WBC RBC Hgb Hct MCV MCH MCHC RDW Plt Count Lymph % (Auto) [place] % (Auto) Lymph # [place] # Baso # Seg Neutrophils % Seg Neuts % (Manual) Lymphocytes % (Manual) Monocytes % (Manual) Eosinophils % (Manual) Basophils % (Manual) Nucleated RBC % Seg Neutrophils # Seg Neutrophils # Man Lymphocytes # (Manual) Monocytes # (Manual) Eosinophils # (Manual) PT INR Fibrinogen dRVVT Confirm Interp Factor V Activity POC ABG pH POC ABG pCO2 POC ABG pO2 ABG pO2 ABG HCO3 ABG Base Excess ABG Hemoglobin Oxyhemoglobin Sodium Potassium Chloride Carbon Dioxide BUN Creatinine Glucose POC Glucose 117 H 121 H 118 H Lactic Acid Calcium Phosphorus Magnesium Direct Bilirubin AST ALT Alkaline Phosphatase Lactate Dehydrogenase Troponin T C-Reactive Protein Total Protein Albumin Prealbumin Triglycerides Cholesterol LDL Cholesterol Direct HDL Cholesterol Urine pH Urine WBC (Auto) Urine Creatinine Urine Total Protein Fluid Total Protein Vancomycin Trough Rheumatoid Factor Complement C4 Miscellaneous Test Crossmatch 10/28/16 10/28/16 10/28/16 05:48 06:45 06:45 WBC 14.7 H RBC 3.05 L Hgb 9.0 L Hct 26.9 L MCV MCH MCHC RDW 16.8 H Plt Count Lymph % (Auto) 8.2 L [place] % (Auto) 8.4 H Lymph # [place] # 1.2 H Baso # Seg Neutrophils % 81.9 H Seg Neuts % (Manual) Lymphocytes % (Manual) Monocytes % (Manual) Eosinophils % (Manual) Basophils % (Manual) Nucleated RBC % Seg Neutrophils # 12.1 H Seg Neutrophils # Man Lymphocytes # (Manual) Monocytes # (Manual) Eosinophils # (Manual) PT INR Fibrinogen dRVVT Confirm Interp Factor V Activity POC ABG pH POC ABG pCO2 POC ABG pO2 ABG pO2 ABG HCO3 ABG Base Excess ABG Hemoglobin Oxyhemoglobin Sodium Potassium Chloride Carbon Dioxide BUN 60 H Creatinine 1.9 H Glucose 120 H POC Glucose 114 H Lactic Acid Calcium Phosphorus Magnesium Direct Bilirubin AST ALT Alkaline Phosphatase Lactate Dehydrogenase Troponin T C-Reactive Protein Total Protein Albumin Prealbumin Triglycerides Cholesterol LDL Cholesterol Direct HDL Cholesterol Urine pH Urine WBC (Auto) Urine Creatinine Urine Total Protein Fluid Total Protein Vancomycin Trough Rheumatoid Factor Complement C4 Miscellaneous Test Crossmatch 10/28/16 10/28/16 10/29/16 17:08 23:50 05:10 WBC RBC Hgb Hct MCV MCH MCHC RDW Plt Count Lymph % (Auto) [place] % (Auto) Lymph # [place] # Baso # Seg Neutrophils % Seg Neuts % (Manual) Lymphocytes % (Manual) Monocytes % (Manual) Eosinophils % (Manual) Basophils % (Manual) Nucleated RBC % Seg Neutrophils # Seg Neutrophils # Man Lymphocytes # (Manual) Monocytes # (Manual) Eosinophils # (Manual) PT INR Fibrinogen dRVVT Confirm Interp Factor V Activity POC ABG pH POC ABG pCO2 POC ABG pO2 ABG pO2 ABG HCO3 ABG Base Excess ABG Hemoglobin Oxyhemoglobin Sodium Potassium Chloride Carbon Dioxide BUN Creatinine Glucose POC Glucose 109 H 110 H 124 H Lactic Acid Calcium Phosphorus Magnesium Direct Bilirubin AST ALT Alkaline Phosphatase Lactate Dehydrogenase Troponin T C-Reactive Protein Total Protein Albumin Prealbumin Triglycerides Cholesterol LDL Cholesterol Direct HDL Cholesterol Urine pH Urine WBC (Auto) Urine Creatinine Urine Total Protein Fluid Total Protein Vancomycin Trough Rheumatoid Factor Complement C4 Miscellaneous Test Crossmatch 10/29/16 10/29/16 10/29/16 07:45 07:45 12:19 WBC 14.7 H RBC 3.15 L Hgb 9.3 L Hct 28.9 L MCV MCH MCHC RDW 17.0 H Plt Count Lymph % (Auto) 11.9 L [place] % (Auto) 8.6 H Lymph # [place] # 1.3 H Baso # Seg Neutrophils % 78.1 H Seg Neuts % (Manual) Lymphocytes % (Manual) Monocytes % (Manual) Eosinophils % (Manual) Basophils % (Manual) Nucleated RBC % Seg Neutrophils # 11.4 H Seg Neutrophils # Man Lymphocytes # (Manual) Monocytes # (Manual) Eosinophils # (Manual) PT INR Fibrinogen dRVVT Confirm Interp Factor V Activity POC ABG pH POC ABG pCO2 POC ABG pO2 ABG pO2 ABG HCO3 ABG Base Excess ABG Hemoglobin Oxyhemoglobin Sodium Potassium 5.1 H Chloride Carbon Dioxide 19 L BUN 78 H Creatinine 2.2 H Glucose 116 H POC Glucose 118 H Lactic Acid Calcium Phosphorus Magnesium Direct Bilirubin AST ALT Alkaline Phosphatase Lactate Dehydrogenase Troponin T C-Reactive Protein Total Protein Albumin Prealbumin Triglycerides Cholesterol LDL Cholesterol Direct HDL Cholesterol Urine pH Urine WBC (Auto) Urine Creatinine Urine Total Protein Fluid Total Protein Vancomycin Trough Rheumatoid Factor Complement C4 Miscellaneous Test Crossmatch 10/29/16 10/30/16 10/30/16 17:49 01:52 03:28 WBC RBC Hgb Hct MCV MCH MCHC RDW Plt Count Lymph % (Auto) [place] % (Auto) Lymph # [place] # Baso # Seg Neutrophils % Seg Neuts % (Manual) Lymphocytes % (Manual) Monocytes % (Manual) Eosinophils % (Manual) Basophils % (Manual) Nucleated RBC % Seg Neutrophils # Seg Neutrophils # Man Lymphocytes # (Manual) Monocytes # (Manual) Eosinophils # (Manual) PT INR Fibrinogen dRVVT Confirm Interp Factor V Activity POC ABG pH POC ABG pCO2 POC ABG pO2 ABG pO2 ABG HCO3 ABG Base Excess ABG Hemoglobin Oxyhemoglobin Sodium Potassium 5.4 H Chloride 97.5 L Carbon Dioxide 19 L BUN 90 H Creatinine 2.5 H Glucose POC Glucose 120 H 129 H Lactic Acid Calcium Phosphorus 5.20 H Magnesium Direct Bilirubin AST ALT Alkaline Phosphatase Lactate Dehydrogenase Troponin T C-Reactive Protein Total Protein Albumin Prealbumin Triglycerides Cholesterol LDL Cholesterol Direct HDL Cholesterol Urine pH Urine WBC (Auto) Urine Creatinine Urine Total Protein Fluid Total Protein Vancomycin Trough Rheumatoid Factor Complement C4 Miscellaneous Test Crossmatch 10/30/16 10/30/16 10/30/16 03:28 08:19 08:19 WBC 11.6 H 15.9 H RBC 2.75 L 2.82 L Hgb 7.9 L 8.3 L Hct 24.2 L 25.2 L MCV MCH MCHC RDW 16.7 H 17.2 H Plt Count Lymph % (Auto) [place] % (Auto) 9.8 H Lymph # [place] # 1.1 H Baso # Seg Neutrophils % 74.2 H Seg Neuts % (Manual) Lymphocytes % (Manual) Monocytes % (Manual) Eosinophils % (Manual) Basophils % (Manual) Nucleated RBC % Seg Neutrophils # 8.6 H Seg Neutrophils # Man Lymphocytes # (Manual) Monocytes # (Manual) Eosinophils # (Manual) PT INR Fibrinogen dRVVT Confirm Interp Factor V Activity POC ABG pH POC ABG pCO2 POC ABG pO2 ABG pO2 ABG HCO3 ABG Base Excess ABG Hemoglobin Oxyhemoglobin Sodium Potassium 5.3 H Chloride 97.4 L Carbon Dioxide 19 L BUN 93 H Creatinine 2.6 H Glucose POC Glucose Lactic Acid Calcium Phosphorus Magnesium Direct Bilirubin AST ALT Alkaline Phosphatase Lactate Dehydrogenase Troponin T C-Reactive Protein Total Protein Albumin Prealbumin Triglycerides Cholesterol LDL Cholesterol Direct HDL Cholesterol Urine pH Urine WBC (Auto) Urine Creatinine Urine Total Protein Fluid Total Protein Vancomycin Trough Rheumatoid Factor Complement C4 Miscellaneous Test Crossmatch 10/30/16 10/30/16 10/31/16 17:11 23:56 00:40 WBC RBC Hgb Hct MCV MCH MCHC RDW Plt Count Lymph % (Auto) [place] % (Auto) Lymph # [place] # Baso # Seg Neutrophils % Seg Neuts % (Manual) Lymphocytes % (Manual) Monocytes % (Manual) Eosinophils % (Manual) Basophils % (Manual) Nucleated RBC % Seg Neutrophils # Seg Neutrophils # Man Lymphocytes # (Manual) Monocytes # (Manual) Eosinophils # (Manual) PT INR Fibrinogen dRVVT Confirm Interp Factor V Activity POC ABG pH POC ABG pCO2 POC ABG pO2 ABG pO2 ABG HCO3 ABG Base Excess ABG Hemoglobin Oxyhemoglobin Sodium Potassium Chloride Carbon Dioxide BUN Creatinine Glucose POC Glucose 106 H 117 H 120 H Lactic Acid Calcium Phosphorus Magnesium Direct Bilirubin AST ALT Alkaline Phosphatase Lactate Dehydrogenase Troponin T C-Reactive Protein Total Protein Albumin Prealbumin Triglycerides Cholesterol LDL Cholesterol Direct HDL Cholesterol Urine pH Urine WBC (Auto) Urine Creatinine Urine Total Protein Fluid Total Protein Vancomycin Trough Rheumatoid Factor Complement C4 Miscellaneous Test Crossmatch 10/31/16 10/31/16 10/31/16 05:43 07:15 07:15 WBC 12.1 H RBC 2.63 L Hgb 7.7 L Hct 23.3 L MCV MCH MCHC RDW 16.7 H Plt Count Lymph % (Auto) 11.7 L [place] % (Auto) 7.7 H Lymph # [place] # 0.9 H Baso # Seg Neutrophils % 78.0 H Seg Neuts % (Manual) Lymphocytes % (Manual) Monocytes % (Manual) Eosinophils % (Manual) Basophils % (Manual) Nucleated RBC % Seg Neutrophils # 9.4 H Seg Neutrophils # Man Lymphocytes # (Manual) Monocytes # (Manual) Eosinophils # (Manual) PT INR Fibrinogen dRVVT Confirm Interp Factor V Activity POC ABG pH POC ABG pCO2 POC ABG pO2 ABG pO2 ABG HCO3 ABG Base Excess ABG Hemoglobin Oxyhemoglobin Sodium Potassium Chloride 96.4 L Carbon Dioxide 21 L BUN 99 H Creatinine 2.6 H Glucose 144 H POC Glucose 125 H Lactic Acid Calcium Phosphorus 4.80 H Magnesium Direct Bilirubin AST ALT Alkaline Phosphatase Lactate Dehydrogenase Troponin T C-Reactive Protein Total Protein Albumin Prealbumin Triglycerides Cholesterol LDL Cholesterol Direct HDL Cholesterol Urine pH Urine WBC (Auto) Urine Creatinine Urine Total Protein Fluid Total Protein Vancomycin Trough Rheumatoid Factor Complement C4 Miscellaneous Test Crossmatch 10/31/16 10/31/16 11/01/16 11:46 18:34 00:20 WBC RBC Hgb Hct MCV MCH MCHC RDW Plt Count Lymph % (Auto) [place] % (Auto) Lymph # [place] # Baso # Seg Neutrophils % Seg Neuts % (Manual) Lymphocytes % (Manual) Monocytes % (Manual) Eosinophils % (Manual) Basophils % (Manual) Nucleated RBC % Seg Neutrophils # Seg Neutrophils # Man Lymphocytes # (Manual) Monocytes # (Manual) Eosinophils # (Manual) PT INR Fibrinogen dRVVT Confirm Interp Factor V Activity POC ABG pH POC ABG pCO2 POC ABG pO2 ABG pO2 ABG HCO3 ABG Base Excess ABG Hemoglobin Oxyhemoglobin Sodium Potassium Chloride Carbon Dioxide BUN Creatinine Glucose POC Glucose 159 H 140 H 132 H Lactic Acid Calcium Phosphorus Magnesium Direct Bilirubin AST ALT Alkaline Phosphatase Lactate Dehydrogenase Troponin T C-Reactive Protein Total Protein Albumin Prealbumin Triglycerides Cholesterol LDL Cholesterol Direct HDL Cholesterol Urine pH Urine WBC (Auto) Urine Creatinine Urine Total Protein Fluid Total Protein Vancomycin Trough Rheumatoid Factor Complement C4 Miscellaneous Test Crossmatch 11/01/16 11/01/16 11/01/16 04:55 04:55 06:11 WBC 11.2 H RBC 2.68 L Hgb 7.5 L Hct 23.7 L MCV MCH MCHC RDW 16.1 H Plt Count Lymph % (Auto) [place] % (Auto) 9.8 H Lymph # [place] # 1.1 H Baso # Seg Neutrophils % 70.8 H Seg Neuts % (Manual) Lymphocytes % (Manual) Monocytes % (Manual) Eosinophils % (Manual) Basophils % (Manual) Nucleated RBC % Seg Neutrophils # 7.9 H Seg Neutrophils # Man Lymphocytes # (Manual) Monocytes # (Manual) Eosinophils # (Manual) PT INR Fibrinogen dRVVT Confirm Interp Factor V Activity POC ABG pH POC ABG pCO2 POC ABG pO2 ABG pO2 ABG HCO3 ABG Base Excess ABG Hemoglobin Oxyhemoglobin Sodium Potassium 3.3 L D Chloride Carbon Dioxide BUN 61 H Creatinine 1.9 H Glucose 114 H POC Glucose 115 H Lactic Acid Calcium Phosphorus 1.80 L D Magnesium Direct Bilirubin AST ALT Alkaline Phosphatase Lactate Dehydrogenase Troponin T C-Reactive Protein Total Protein Albumin Prealbumin Triglycerides Cholesterol LDL Cholesterol Direct HDL Cholesterol Urine pH Urine WBC (Auto) Urine Creatinine Urine Total Protein Fluid Total Protein Vancomycin Trough Rheumatoid Factor Complement C4 Miscellaneous Test Crossmatch 11/01/16 11/01/16 11/01/16 12:29 18:23 23:58 WBC RBC Hgb Hct MCV MCH MCHC RDW Plt Count Lymph % (Auto) [place] % (Auto) Lymph # [place] # Baso # Seg Neutrophils % Seg Neuts % (Manual) Lymphocytes % (Manual) Monocytes % (Manual) Eosinophils % (Manual) Basophils % (Manual) Nucleated RBC % Seg Neutrophils # Seg Neutrophils # Man Lymphocytes # (Manual) Monocytes # (Manual) Eosinophils # (Manual) PT INR Fibrinogen dRVVT Confirm Interp Factor V Activity POC ABG pH POC ABG pCO2 POC ABG pO2 ABG pO2 ABG HCO3 ABG Base Excess ABG Hemoglobin Oxyhemoglobin Sodium Potassium Chloride Carbon Dioxide BUN Creatinine Glucose POC Glucose 142 H 143 H 128 H Lactic Acid Calcium Phosphorus Magnesium Direct Bilirubin AST ALT Alkaline Phosphatase Lactate Dehydrogenase Troponin T C-Reactive Protein Total Protein Albumin Prealbumin Triglycerides Cholesterol LDL Cholesterol Direct HDL Cholesterol Urine pH Urine WBC (Auto) Urine Creatinine Urine Total Protein Fluid Total Protein Vancomycin Trough Rheumatoid Factor Complement C4 Miscellaneous Test Crossmatch 11/02/16 11/02/16 11/02/16 04:16 05:29 11:58 WBC RBC Hgb Hct MCV MCH MCHC RDW Plt Count Lymph % (Auto) [place] % (Auto) Lymph # [place] # Baso # Seg Neutrophils % Seg Neuts % (Manual) Lymphocytes % (Manual) Monocytes % (Manual) Eosinophils % (Manual) Basophils % (Manual) Nucleated RBC % Seg Neutrophils # Seg Neutrophils # Man Lymphocytes # (Manual) Monocytes # (Manual) Eosinophils # (Manual) PT INR Fibrinogen dRVVT Confirm Interp Factor V Activity POC ABG pH POC ABG pCO2 POC ABG pO2 ABG pO2 ABG HCO3 ABG Base Excess ABG Hemoglobin Oxyhemoglobin Sodium Potassium 3.1 L Chloride Carbon Dioxide BUN 73 H Creatinine 2.3 H Glucose 112 H POC Glucose 135 H 149 H Lactic Acid Calcium Phosphorus Magnesium Direct Bilirubin AST ALT Alkaline Phosphatase Lactate Dehydrogenase Troponin T C-Reactive Protein Total Protein Albumin Prealbumin Triglycerides Cholesterol LDL Cholesterol Direct HDL Cholesterol Urine pH Urine WBC (Auto) Urine Creatinine Urine Total Protein Fluid Total Protein Vancomycin Trough Rheumatoid Factor Complement C4 Miscellaneous Test Crossmatch 11/02/16 11/02/16 11/03/16 17:42 22:54 06:00 WBC RBC Hgb Hct MCV MCH MCHC RDW Plt Count Lymph % (Auto) [place] % (Auto) Lymph # [place] # Baso # Seg Neutrophils % Seg Neuts % (Manual) Lymphocytes % (Manual) Monocytes % (Manual) Eosinophils % (Manual) Basophils % (Manual) Nucleated RBC % Seg Neutrophils # Seg Neutrophils # Man Lymphocytes # (Manual) Monocytes # (Manual) Eosinophils # (Manual) PT INR Fibrinogen dRVVT Confirm Interp Factor V Activity POC ABG pH POC ABG pCO2 POC ABG pO2 ABG pO2 ABG HCO3 ABG Base Excess ABG Hemoglobin Oxyhemoglobin Sodium Potassium Chloride 96.7 L Carbon Dioxide BUN 41 H Creatinine 1.5 H Glucose 145 H POC Glucose 182 H 115 H Lactic Acid Calcium Phosphorus 1.60 L D Magnesium 1.50 L Direct Bilirubin AST ALT Alkaline Phosphatase Lactate Dehydrogenase Troponin T C-Reactive Protein Total Protein Albumin Prealbumin Triglycerides Cholesterol LDL Cholesterol Direct HDL Cholesterol Urine pH Urine WBC (Auto) Urine Creatinine Urine Total Protein Fluid Total Protein Vancomycin Trough Rheumatoid Factor Complement C4 Miscellaneous Test Crossmatch 11/03/16 11/03/16 11/03/16 11:53 17:45 23:37 WBC RBC Hgb Hct MCV MCH MCHC RDW Plt Count Lymph % (Auto) [place] % (Auto) Lymph # [place] # Baso # Seg Neutrophils % Seg Neuts % (Manual) Lymphocytes % (Manual) Monocytes % (Manual) Eosinophils % (Manual) Basophils % (Manual) Nucleated RBC % Seg Neutrophils # Seg Neutrophils # Man Lymphocytes # (Manual) Monocytes # (Manual) Eosinophils # (Manual) PT INR Fibrinogen dRVVT Confirm Interp Factor V Activity POC ABG pH POC ABG pCO2 POC ABG pO2 ABG pO2 ABG HCO3 ABG Base Excess ABG Hemoglobin Oxyhemoglobin Sodium Potassium Chloride Carbon Dioxide BUN Creatinine Glucose POC Glucose 131 H 134 H 113 H Lactic Acid Calcium Phosphorus Magnesium Direct Bilirubin AST ALT Alkaline Phosphatase Lactate Dehydrogenase Troponin T C-Reactive Protein Total Protein Albumin Prealbumin Triglycerides Cholesterol LDL Cholesterol Direct HDL Cholesterol Urine pH Urine WBC (Auto) Urine Creatinine Urine Total Protein Fluid Total Protein Vancomycin Trough Rheumatoid Factor Complement C4 Miscellaneous Test Crossmatch 11/04/16 11/04/16 11/04/16 05:41 06:00 12:10 WBC RBC Hgb Hct MCV MCH MCHC RDW Plt Count Lymph % (Auto) [place] % (Auto) Lymph # [place] # Baso # Seg Neutrophils % Seg Neuts % (Manual) Lymphocytes % (Manual) Monocytes % (Manual) Eosinophils % (Manual) Basophils % (Manual) Nucleated RBC % Seg Neutrophils # Seg Neutrophils # Man Lymphocytes # (Manual) Monocytes # (Manual) Eosinophils # (Manual) PT INR Fibrinogen dRVVT Confirm Interp Factor V Activity POC ABG pH POC ABG pCO2 POC ABG pO2 ABG pO2 ABG HCO3 ABG Base Excess ABG Hemoglobin Oxyhemoglobin Sodium Potassium Chloride 96.7 L Carbon Dioxide BUN 52 H Creatinine 1.9 H Glucose 126 H POC Glucose 137 H 191 H Lactic Acid Calcium Phosphorus Magnesium Direct Bilirubin AST ALT Alkaline Phosphatase Lactate Dehydrogenase Troponin T C-Reactive Protein Total Protein Albumin Prealbumin Triglycerides Cholesterol LDL Cholesterol Direct HDL Cholesterol Urine pH Urine WBC (Auto) Urine Creatinine Urine Total Protein Fluid Total Protein Vancomycin Trough Rheumatoid Factor Complement C4 Miscellaneous Test Crossmatch 11/04/16 11/05/16 11/05/16 22:57 03:10 05:10 WBC RBC Hgb Hct MCV MCH MCHC RDW Plt Count Lymph % (Auto) [place] % (Auto) Lymph # [place] # Baso # Seg Neutrophils % Seg Neuts % (Manual) Lymphocytes % (Manual) Monocytes % (Manual) Eosinophils % (Manual) Basophils % (Manual) Nucleated RBC % Seg Neutrophils # Seg Neutrophils # Man Lymphocytes # (Manual) Monocytes # (Manual) Eosinophils # (Manual) PT INR Fibrinogen dRVVT Confirm Interp Factor V Activity POC ABG pH POC ABG pCO2 POC ABG pO2 ABG pO2 ABG HCO3 ABG Base Excess ABG Hemoglobin Oxyhemoglobin Sodium 136 L Potassium Chloride 97.2 L Carbon Dioxide BUN 32 H Creatinine 1.3 H Glucose 123 H POC Glucose 125 H 108 H Lactic Acid Calcium 7.8 L Phosphorus Magnesium Direct Bilirubin AST ALT Alkaline Phosphatase Lactate Dehydrogenase Troponin T C-Reactive Protein Total Protein Albumin Prealbumin Triglycerides Cholesterol LDL Cholesterol Direct HDL Cholesterol Urine pH Urine WBC (Auto) Urine Creatinine Urine Total Protein Fluid Total Protein Vancomycin Trough Rheumatoid Factor Complement C4 Miscellaneous Test Crossmatch 11/05/16 11/05/16 11/05/16 12:23 13:09 13:25 WBC RBC Hgb Hct MCV MCH MCHC RDW Plt Count Lymph % (Auto) [place] % (Auto) Lymph # [place] # Baso # Seg Neutrophils % Seg Neuts % (Manual) Lymphocytes % (Manual) Monocytes % (Manual) Eosinophils % (Manual) Basophils % (Manual) Nucleated RBC % Seg Neutrophils # Seg Neutrophils # Man Lymphocytes # (Manual) Monocytes # (Manual) Eosinophils # (Manual) PT INR Fibrinogen dRVVT Confirm Interp Factor V Activity POC ABG pH POC ABG pCO2 POC ABG pO2 ABG pO2 ABG HCO3 ABG Base Excess ABG Hemoglobin Oxyhemoglobin Sodium Potassium Chloride Carbon Dioxide BUN Creatinine Glucose POC Glucose 124 H Lactic Acid Calcium Phosphorus Magnesium Direct Bilirubin AST ALT Alkaline Phosphatase Lactate Dehydrogenase Troponin T C-Reactive Protein 11.40 H Total Protein Albumin Prealbumin Triglycerides Cholesterol LDL Cholesterol Direct HDL Cholesterol Urine pH 9.0 H Urine WBC (Auto) Urine Creatinine Urine Total Protein Fluid Total Protein Vancomycin Trough Rheumatoid Factor Complement C4 Miscellaneous Test Crossmatch 11/05/16 11/05/16 11/05/16 13:25 17:54 23:42 WBC RBC Hgb Hct MCV MCH MCHC RDW Plt Count Lymph % (Auto) [place] % (Auto) Lymph # [place] # Baso # Seg Neutrophils % Seg Neuts % (Manual) Lymphocytes % (Manual) Monocytes % (Manual) Eosinophils % (Manual) Basophils % (Manual) Nucleated RBC % Seg Neutrophils # Seg Neutrophils # Man Lymphocytes # (Manual) Monocytes # (Manual) Eosinophils # (Manual) PT INR Fibrinogen dRVVT Confirm Interp Factor V Activity POC ABG pH POC ABG pCO2 POC ABG pO2 ABG pO2 ABG HCO3 ABG Base Excess ABG Hemoglobin Oxyhemoglobin Sodium Potassium Chloride Carbon Dioxide BUN Creatinine Glucose POC Glucose 114 H 134 H Lactic Acid Calcium Phosphorus Magnesium Direct Bilirubin AST ALT Alkaline Phosphatase Lactate Dehydrogenase Troponin T C-Reactive Protein Total Protein Albumin Prealbumin Triglycerides Cholesterol LDL Cholesterol Direct HDL Cholesterol Urine pH Urine WBC (Auto) Urine Creatinine Urine Total Protein Fluid Total Protein Vancomycin Trough Rheumatoid Factor Complement C4 Miscellaneous Test Flexitest 1 H Crossmatch 11/06/16 11/06/16 11/06/16 04:56 06:25 06:25 WBC RBC 2.50 L Hgb 7.3 L Hct 22.5 L MCV MCH MCHC RDW 16.9 H Plt Count Lymph % (Auto) [place] % (Auto) 10.5 H Lymph # [place] # 1.1 H Baso # Seg Neutrophils % Seg Neuts % (Manual) Lymphocytes % (Manual) Monocytes % (Manual) Eosinophils % (Manual) Basophils % (Manual) Nucleated RBC % Seg Neutrophils # Seg Neutrophils # Man Lymphocytes # (Manual) Monocytes # (Manual) Eosinophils # (Manual) PT INR Fibrinogen dRVVT Confirm Interp Factor V Activity POC ABG pH POC ABG pCO2 POC ABG pO2 ABG pO2 ABG HCO3 ABG Base Excess ABG Hemoglobin Oxyhemoglobin Sodium Potassium 5.1 H Chloride 95.9 L Carbon Dioxide BUN 52 H Creatinine 1.8 H Glucose 117 H POC Glucose 120 H Lactic Acid Calcium Phosphorus Magnesium Direct Bilirubin AST 103 H ALT 77 H Alkaline Phosphatase 285 H Lactate Dehydrogenase Troponin T C-Reactive Protein Total Protein 6.2 L Albumin 1.8 L Prealbumin 0.180 L Triglycerides Cholesterol LDL Cholesterol Direct HDL Cholesterol Urine pH Urine WBC (Auto) Urine Creatinine Urine Total Protein Fluid Total Protein Vancomycin Trough Rheumatoid Factor Complement C4 Miscellaneous Test Crossmatch 11/06/16 11/06/16 11/06/16 11:56 17:14 23:52 WBC RBC Hgb Hct MCV MCH MCHC RDW Plt Count Lymph % (Auto) [place] % (Auto) Lymph # [place] # Baso # Seg Neutrophils % Seg Neuts % (Manual) Lymphocytes % (Manual) Monocytes % (Manual) Eosinophils % (Manual) Basophils % (Manual) Nucleated RBC % Seg Neutrophils # Seg Neutrophils # Man Lymphocytes # (Manual) Monocytes # (Manual) Eosinophils # (Manual) PT INR Fibrinogen dRVVT Confirm Interp Factor V Activity POC ABG pH POC ABG pCO2 POC ABG pO2 ABG pO2 ABG HCO3 ABG Base Excess ABG Hemoglobin Oxyhemoglobin Sodium Potassium Chloride Carbon Dioxide BUN Creatinine Glucose POC Glucose 141 H 125 H 130 H Lactic Acid Calcium Phosphorus Magnesium Direct Bilirubin AST ALT Alkaline Phosphatase Lactate Dehydrogenase Troponin T C-Reactive Protein Total Protein Albumin Prealbumin Triglycerides Cholesterol LDL Cholesterol Direct HDL Cholesterol Urine pH Urine WBC (Auto) Urine Creatinine Urine Total Protein Fluid Total Protein Vancomycin Trough Rheumatoid Factor Complement C4 Miscellaneous Test Crossmatch 11/07/16 11/07/16 11/07/16 06:30 06:30 09:37 WBC RBC 2.18 L Hgb 6.3 L Hct 19.7 L* MCV MCH MCHC RDW 16.8 H Plt Count Lymph % (Auto) [place] % (Auto) 10.0 H Lymph # [place] # 1.0 H Baso # Seg Neutrophils % Seg Neuts % (Manual) Lymphocytes % (Manual) Monocytes % (Manual) Eosinophils % (Manual) Basophils % (Manual) Nucleated RBC % Seg Neutrophils # Seg Neutrophils # Man Lymphocytes # (Manual) Monocytes # (Manual) Eosinophils # (Manual) PT INR Fibrinogen dRVVT Confirm Interp Factor V Activity POC ABG pH POC ABG pCO2 POC ABG pO2 ABG pO2 ABG HCO3 ABG Base Excess ABG Hemoglobin Oxyhemoglobin Sodium 135 L Potassium Chloride 95.6 L Carbon Dioxide BUN 70 H Creatinine 2.0 H Glucose 126 H POC Glucose Lactic Acid Calcium Phosphorus Magnesium Direct Bilirubin AST ALT Alkaline Phosphatase Lactate Dehydrogenase Troponin T C-Reactive Protein Total Protein Albumin Prealbumin Triglycerides Cholesterol LDL Cholesterol Direct HDL Cholesterol Urine pH Urine WBC (Auto) Urine Creatinine Urine Total Protein Fluid Total Protein Vancomycin Trough Rheumatoid Factor Complement C4 Miscellaneous Test Crossmatch See Detail 11/07/16 11/07/16 11/07/16 12:52 18:51 21:26 WBC RBC Hgb Hct MCV MCH MCHC RDW Plt Count Lymph % (Auto) [place] % (Auto) Lymph # [place] # Baso # Seg Neutrophils % Seg Neuts % (Manual) Lymphocytes % (Manual) Monocytes % (Manual) Eosinophils % (Manual) Basophils % (Manual) Nucleated RBC % Seg Neutrophils # Seg Neutrophils # Man Lymphocytes # (Manual) Monocytes # (Manual) Eosinophils # (Manual) PT INR Fibrinogen dRVVT Confirm Interp Factor V Activity POC ABG pH 7.523 H POC ABG pCO2 34.6 L POC ABG pO2 53 L ABG pO2 ABG HCO3 ABG Base Excess ABG Hemoglobin Oxyhemoglobin Sodium Potassium Chloride Carbon Dioxide BUN Creatinine Glucose POC Glucose 142 H 155 H Lactic Acid Calcium Phosphorus Magnesium Direct Bilirubin AST ALT Alkaline Phosphatase Lactate Dehydrogenase Troponin T C-Reactive Protein Total Protein Albumin Prealbumin Triglycerides Cholesterol LDL Cholesterol Direct HDL Cholesterol Urine pH Urine WBC (Auto) Urine Creatinine Urine Total Protein Fluid Total Protein Vancomycin Trough Rheumatoid Factor Complement C4 Miscellaneous Test Crossmatch 11/07/16 11/08/16 11/08/16 21:34 13:03 23:37 WBC RBC 2.63 L Hgb 7.7 L Hct 22.7 L MCV MCH MCHC RDW 17.0 H Plt Count Lymph % (Auto) [place] % (Auto) Lymph # [place] # Baso # Seg Neutrophils % Seg Neuts % (Manual) Lymphocytes % (Manual) Monocytes % (Manual) Eosinophils % (Manual) Basophils % (Manual) Nucleated RBC % Seg Neutrophils # Seg Neutrophils # Man Lymphocytes # (Manual) Monocytes # (Manual) Eosinophils # (Manual) PT INR Fibrinogen dRVVT Confirm Interp Factor V Activity POC ABG pH 7.478 H POC ABG pCO2 34.0 L POC ABG pO2 50 L ABG pO2 ABG HCO3 ABG Base Excess ABG Hemoglobin Oxyhemoglobin Sodium Potassium Chloride Carbon Dioxide BUN Creatinine Glucose POC Glucose 113 H Lactic Acid Calcium Phosphorus Magnesium Direct Bilirubin AST ALT Alkaline Phosphatase Lactate Dehydrogenase Troponin T C-Reactive Protein Total Protein Albumin Prealbumin Triglycerides Cholesterol LDL Cholesterol Direct HDL Cholesterol Urine pH Urine WBC (Auto) Urine Creatinine Urine Total Protein Fluid Total Protein Vancomycin Trough Rheumatoid Factor Complement C4 Miscellaneous Test Crossmatch 11/09/16 11/09/16 11/09/16 04:35 10:15 18:21 WBC RBC 2.68 L Hgb 7.8 L Hct 23.3 L MCV MCH MCHC RDW 17.0 H Plt Count Lymph % (Auto) [place] % (Auto) 12.1 H Lymph # [place] # 1.1 H Baso # Seg Neutrophils % Seg Neuts % (Manual) Lymphocytes % (Manual) Monocytes % (Manual) Eosinophils % (Manual) Basophils % (Manual) Nucleated RBC % Seg Neutrophils # Seg Neutrophils # Man Lymphocytes # (Manual) Monocytes # (Manual) Eosinophils # (Manual) PT INR Fibrinogen dRVVT Confirm Interp Factor V Activity POC ABG pH POC ABG pCO2 POC ABG pO2 ABG pO2 ABG HCO3 ABG Base Excess ABG Hemoglobin Oxyhemoglobin Sodium Potassium Chloride Carbon Dioxide BUN 51 H Creatinine 1.8 H Glucose POC Glucose 60 L Lactic Acid Calcium 8.3 L Phosphorus Magnesium Direct Bilirubin AST ALT Alkaline Phosphatase Lactate Dehydrogenase Troponin T C-Reactive Protein Total Protein Albumin Prealbumin Triglycerides Cholesterol LDL Cholesterol Direct HDL Cholesterol Urine pH Urine WBC (Auto) Urine Creatinine Urine Total Protein Fluid Total Protein Vancomycin Trough Rheumatoid Factor Complement C4 Miscellaneous Test Crossmatch 11/09/16 11/10/16 11/10/16 18:55 07:00 11:51 WBC RBC Hgb Hct MCV MCH MCHC RDW Plt Count Lymph % (Auto) [place] % (Auto) Lymph # [place] # Baso # Seg Neutrophils % Seg Neuts % (Manual) Lymphocytes % (Manual) Monocytes % (Manual) Eosinophils % (Manual) Basophils % (Manual) Nucleated RBC % Seg Neutrophils # Seg Neutrophils # Man Lymphocytes # (Manual) Monocytes # (Manual) Eosinophils # (Manual) PT INR Fibrinogen dRVVT Confirm Interp Factor V Activity POC ABG pH POC ABG pCO2 POC ABG pO2 ABG pO2 ABG HCO3 ABG Base Excess ABG Hemoglobin Oxyhemoglobin Sodium Potassium 3.0 L D Chloride 97.4 L Carbon Dioxide BUN 28 H Creatinine 1.3 H Glucose POC Glucose 68 L 120 H Lactic Acid Calcium 7.8 L Phosphorus Magnesium Direct Bilirubin AST ALT Alkaline Phosphatase Lactate Dehydrogenase Troponin T C-Reactive Protein Total Protein Albumin Prealbumin Triglycerides Cholesterol LDL Cholesterol Direct HDL Cholesterol Urine pH Urine WBC (Auto) Urine Creatinine Urine Total Protein Fluid Total Protein Vancomycin Trough Rheumatoid Factor Complement C4 Miscellaneous Test Crossmatch 11/10/16 11/11/16 11/11/16 14:20 06:59 06:59 WBC RBC 2.81 L Hgb 8.1 L Hct 24.4 L MCV MCH MCHC RDW 16.4 H Plt Count Lymph % (Auto) [place] % (Auto) 10.8 H Lymph # [place] # 1.0 H Baso # Seg Neutrophils % Seg Neuts % (Manual) Lymphocytes % (Manual) Monocytes % (Manual) Eosinophils % (Manual) Basophils % (Manual) Nucleated RBC % Seg Neutrophils # Seg Neutrophils # Man Lymphocytes # (Manual) Monocytes # (Manual) Eosinophils # (Manual) PT INR Fibrinogen dRVVT Confirm Interp Factor V Activity POC ABG pH POC ABG pCO2 POC ABG pO2 ABG pO2 ABG HCO3 ABG Base Excess ABG Hemoglobin Oxyhemoglobin Sodium Potassium Chloride Carbon Dioxide BUN Creatinine Glucose POC Glucose Lactic Acid Calcium Phosphorus Magnesium Direct Bilirubin AST ALT Alkaline Phosphatase Lactate Dehydrogenase 196 H Troponin T C-Reactive Protein Total Protein 6.1 L Albumin Prealbumin Triglycerides Cholesterol LDL Cholesterol Direct HDL Cholesterol Urine pH Urine WBC (Auto) Urine Creatinine Urine Total Protein Fluid Total Protein < 3.0 L Vancomycin Trough Rheumatoid Factor Complement C4 Miscellaneous Test Crossmatch 11/11/16 11/11/16 11/12/16 06:59 09:50 04:00 WBC RBC Hgb Hct MCV MCH MCHC RDW Plt Count Lymph % (Auto) [place] % (Auto) Lymph # [place] # Baso # Seg Neutrophils % Seg Neuts % (Manual) Lymphocytes % (Manual) Monocytes % (Manual) Eosinophils % (Manual) Basophils % (Manual) Nucleated RBC % Seg Neutrophils # Seg Neutrophils # Man Lymphocytes # (Manual) Monocytes # (Manual) Eosinophils # (Manual) PT INR 1.18 H Fibrinogen dRVVT Confirm Interp Factor V Activity POC ABG pH POC ABG pCO2 POC ABG pO2 ABG pO2 ABG HCO3 ABG Base Excess ABG Hemoglobin Oxyhemoglobin Sodium 136 L 133 L Potassium Chloride 96.1 L 94.8 L Carbon Dioxide 21 L BUN 37 H 42 H Creatinine 1.8 H 2.0 H Glucose POC Glucose Lactic Acid Calcium Phosphorus Magnesium Direct Bilirubin AST ALT Alkaline Phosphatase Lactate Dehydrogenase Troponin T C-Reactive Protein Total Protein Albumin Prealbumin Triglycerides Cholesterol LDL Cholesterol Direct HDL Cholesterol Urine pH Urine WBC (Auto) Urine Creatinine Urine Total Protein Fluid Total Protein Vancomycin Trough Rheumatoid Factor Complement C4 Miscellaneous Test Crossmatch 11/12/16 11/12/16 11/13/16 04:00 23:55 05:53 WBC RBC Hgb 8.9 L Hct 27.2 L MCV MCH MCHC RDW Plt Count Lymph % (Auto) [place] % (Auto) Lymph # [place] # Baso # Seg Neutrophils % Seg Neuts % (Manual) Lymphocytes % (Manual) Monocytes % (Manual) Eosinophils % (Manual) Basophils % (Manual) Nucleated RBC % Seg Neutrophils # Seg Neutrophils # Man Lymphocytes # (Manual) Monocytes # (Manual) Eosinophils # (Manual) PT INR Fibrinogen dRVVT Confirm Interp Factor V Activity POC ABG pH POC ABG pCO2 POC ABG pO2 ABG pO2 ABG HCO3 ABG Base Excess ABG Hemoglobin Oxyhemoglobin Sodium Potassium Chloride Carbon Dioxide BUN Creatinine Glucose POC Glucose 132 H 120 H Lactic Acid Calcium Phosphorus Magnesium Direct Bilirubin AST ALT Alkaline Phosphatase Lactate Dehydrogenase Troponin T C-Reactive Protein Total Protein Albumin Prealbumin Triglycerides Cholesterol LDL Cholesterol Direct HDL Cholesterol Urine pH Urine WBC (Auto) Urine Creatinine Urine Total Protein Fluid Total Protein Vancomycin Trough Rheumatoid Factor Complement C4 Miscellaneous Test Crossmatch 11/13/16 11/13/16 11/13/16 11:43 17:09 23:41 WBC RBC Hgb Hct MCV MCH MCHC RDW Plt Count Lymph % (Auto) [place] % (Auto) Lymph # [place] # Baso # Seg Neutrophils % Seg Neuts % (Manual) Lymphocytes % (Manual) Monocytes % (Manual) Eosinophils % (Manual) Basophils % (Manual) Nucleated RBC % Seg Neutrophils # Seg Neutrophils # Man Lymphocytes # (Manual) Monocytes # (Manual) Eosinophils # (Manual) PT INR Fibrinogen dRVVT Confirm Interp Factor V Activity POC ABG pH POC ABG pCO2 POC ABG pO2 ABG pO2 ABG HCO3 ABG Base Excess ABG Hemoglobin Oxyhemoglobin Sodium Potassium Chloride Carbon Dioxide BUN Creatinine Glucose POC Glucose 114 H 113 H 108 H Lactic Acid Calcium Phosphorus Magnesium Direct Bilirubin AST ALT Alkaline Phosphatase Lactate Dehydrogenase Troponin T C-Reactive Protein Total Protein Albumin Prealbumin Triglycerides Cholesterol LDL Cholesterol Direct HDL Cholesterol Urine pH Urine WBC (Auto) Urine Creatinine Urine Total Protein Fluid Total Protein Vancomycin Trough Rheumatoid Factor Complement C4 Miscellaneous Test Crossmatch 11/13/16 11/15/16 11/15/16 Unknown 00:37 03:30 WBC 11.2 H RBC 2.72 L Hgb 7.6 L Hct 23.4 L MCV MCH MCHC RDW 16.5 H Plt Count Lymph % (Auto) [place] % (Auto) Lymph # [place] # Baso # Seg Neutrophils % Seg Neuts % (Manual) Lymphocytes % (Manual) Monocytes % (Manual) Eosinophils % (Manual) Basophils % (Manual) Nucleated RBC % Seg Neutrophils # Seg Neutrophils # Man Lymphocytes # (Manual) Monocytes # (Manual) Eosinophils # (Manual) PT INR Fibrinogen dRVVT Confirm Interp Factor V Activity POC ABG pH POC ABG pCO2 POC ABG pO2 ABG pO2 ABG HCO3 ABG Base Excess ABG Hemoglobin Oxyhemoglobin Sodium 135 L Potassium Chloride 95.2 L Carbon Dioxide BUN 52 H Creatinine 2.2 H Glucose POC Glucose 108 H Lactic Acid Calcium Phosphorus Magnesium Direct Bilirubin AST ALT Alkaline Phosphatase Lactate Dehydrogenase Troponin T C-Reactive Protein Total Protein Albumin Prealbumin Triglycerides Cholesterol LDL Cholesterol Direct HDL Cholesterol Urine pH Urine WBC (Auto) Urine Creatinine Urine Total Protein Fluid Total Protein Vancomycin Trough Rheumatoid Factor Complement C4 Miscellaneous Test Crossmatch 11/15/16 11/15/16 11/15/16 03:30 05:04 11:50 WBC RBC Hgb Hct MCV MCH MCHC RDW Plt Count Lymph % (Auto) [place] % (Auto) Lymph # [place] # Baso # Seg Neutrophils % Seg Neuts % (Manual) Lymphocytes % (Manual) Monocytes % (Manual) Eosinophils % (Manual) Basophils % (Manual) Nucleated RBC % Seg Neutrophils # Seg Neutrophils # Man Lymphocytes # (Manual) Monocytes # (Manual) Eosinophils # (Manual) PT INR Fibrinogen dRVVT Confirm Interp Factor V Activity POC ABG pH POC ABG pCO2 POC ABG pO2 ABG pO2 ABG HCO3 ABG Base Excess ABG Hemoglobin Oxyhemoglobin Sodium Potassium 3.4 L Chloride Carbon Dioxide BUN 25 H Creatinine 1.5 H Glucose 103 H POC Glucose 121 H 144 H Lactic Acid Calcium Phosphorus Magnesium Direct Bilirubin AST ALT Alkaline Phosphatase Lactate Dehydrogenase Troponin T C-Reactive Protein Total Protein Albumin Prealbumin Triglycerides Cholesterol LDL Cholesterol Direct HDL Cholesterol Urine pH Urine WBC (Auto) Urine Creatinine Urine Total Protein Fluid Total Protein Vancomycin Trough Rheumatoid Factor Complement C4 Miscellaneous Test Crossmatch 11/15/16 11/15/16 11/16/16 21:28 23:20 11:44 WBC RBC Hgb Hct MCV MCH MCHC RDW Plt Count Lymph % (Auto) [place] % (Auto) Lymph # [place] # Baso # Seg Neutrophils % Seg Neuts % (Manual) Lymphocytes % (Manual) Monocytes % (Manual) Eosinophils % (Manual) Basophils % (Manual) Nucleated RBC % Seg Neutrophils # Seg Neutrophils # Man Lymphocytes # (Manual) Monocytes # (Manual) Eosinophils # (Manual) PT INR Fibrinogen dRVVT Confirm Interp Factor V Activity POC ABG pH 7.462 H POC ABG pCO2 POC ABG pO2 71 L ABG pO2 ABG HCO3 ABG Base Excess ABG Hemoglobin Oxyhemoglobin Sodium Potassium Chloride Carbon Dioxide BUN Creatinine Glucose POC Glucose 116 H 133 H Lactic Acid Calcium Phosphorus Magnesium Direct Bilirubin AST ALT Alkaline Phosphatase Lactate Dehydrogenase Troponin T C-Reactive Protein Total Protein Albumin Prealbumin Triglycerides Cholesterol LDL Cholesterol Direct HDL Cholesterol Urine pH Urine WBC (Auto) Urine Creatinine Urine Total Protein Fluid Total Protein Vancomycin Trough Rheumatoid Factor Complement C4 Miscellaneous Test Crossmatch 11/16/16 11/16/16 11/16/16 12:20 17:05 23:35 WBC 11.7 H RBC 2.73 L Hgb 7.6 L Hct 23.7 L MCV MCH MCHC RDW 16.6 H Plt Count Lymph % (Auto) [place] % (Auto) Lymph # [place] # Baso # Seg Neutrophils % Seg Neuts % (Manual) Lymphocytes % (Manual) Monocytes % (Manual) Eosinophils % (Manual) Basophils % (Manual) Nucleated RBC % Seg Neutrophils # Seg Neutrophils # Man Lymphocytes # (Manual) Monocytes # (Manual) Eosinophils # (Manual) PT INR Fibrinogen dRVVT Confirm Interp Factor V Activity POC ABG pH POC ABG pCO2 POC ABG pO2 ABG pO2 ABG HCO3 ABG Base Excess ABG Hemoglobin Oxyhemoglobin Sodium Potassium Chloride Carbon Dioxide BUN Creatinine Glucose POC Glucose 154 H 125 H Lactic Acid Calcium Phosphorus Magnesium Direct Bilirubin AST ALT Alkaline Phosphatase Lactate Dehydrogenase Troponin T C-Reactive Protein Total Protein Albumin Prealbumin Triglycerides Cholesterol LDL Cholesterol Direct HDL Cholesterol Urine pH Urine WBC (Auto) Urine Creatinine Urine Total Protein Fluid Total Protein Vancomycin Trough Rheumatoid Factor Complement C4 Miscellaneous Test Crossmatch 11/17/16 11/17/16 11/17/16 03:20 03:20 03:20 WBC RBC 2.55 L Hgb 7.3 L Hct 21.9 L MCV MCH MCHC RDW 16.6 H Plt Count Lymph % (Auto) [place] % (Auto) 11.5 H Lymph # [place] # 1.1 H Baso # Seg Neutrophils % Seg Neuts % (Manual) Lymphocytes % (Manual) Monocytes % (Manual) Eosinophils % (Manual) Basophils % (Manual) Nucleated RBC % Seg Neutrophils # Seg Neutrophils # Man Lymphocytes # (Manual) Monocytes # (Manual) Eosinophils # (Manual) PT 16.8 H INR 1.37 H Fibrinogen dRVVT Confirm Interp Factor V Activity POC ABG pH POC ABG pCO2 POC ABG pO2 ABG pO2 ABG HCO3 ABG Base Excess ABG Hemoglobin Oxyhemoglobin Sodium Potassium 3.5 L Chloride Carbon Dioxide BUN 21 H Creatinine Glucose POC Glucose Lactic Acid Calcium 7.9 L Phosphorus Magnesium Direct Bilirubin AST ALT Alkaline Phosphatase Lactate Dehydrogenase Troponin T C-Reactive Protein Total Protein Albumin Prealbumin Triglycerides Cholesterol LDL Cholesterol Direct HDL Cholesterol Urine pH Urine WBC (Auto) Urine Creatinine Urine Total Protein Fluid Total Protein Vancomycin Trough Rheumatoid Factor Complement C4 Miscellaneous Test Crossmatch 11/17/16 11/17/16 11/17/16 06:34 11:21 21:22 WBC RBC Hgb Hct MCV MCH MCHC RDW Plt Count Lymph % (Auto) [place] % (Auto) Lymph # [place] # Baso # Seg Neutrophils % Seg Neuts % (Manual) Lymphocytes % (Manual) Monocytes % (Manual) Eosinophils % (Manual) Basophils % (Manual) Nucleated RBC % Seg Neutrophils # Seg Neutrophils # Man Lymphocytes # (Manual) Monocytes # (Manual) Eosinophils # (Manual) PT INR Fibrinogen dRVVT Confirm Interp Factor V Activity POC ABG pH 7.467 H POC ABG pCO2 POC ABG pO2 73 L ABG pO2 ABG HCO3 ABG Base Excess ABG Hemoglobin Oxyhemoglobin Sodium Potassium Chloride Carbon Dioxide BUN Creatinine Glucose POC Glucose 121 H 119 H Lactic Acid Calcium Phosphorus Magnesium Direct Bilirubin AST ALT Alkaline Phosphatase Lactate Dehydrogenase Troponin T C-Reactive Protein Total Protein Albumin Prealbumin Triglycerides Cholesterol LDL Cholesterol Direct HDL Cholesterol Urine pH Urine WBC (Auto) Urine Creatinine Urine Total Protein Fluid Total Protein Vancomycin Trough Rheumatoid Factor Complement C4 Miscellaneous Test Crossmatch 11/18/16 11/18/16 11/19/16 12:16 17:19 00:00 WBC RBC Hgb Hct MCV MCH MCHC RDW Plt Count Lymph % (Auto) [place] % (Auto) Lymph # [place] # Baso # Seg Neutrophils % Seg Neuts % (Manual) Lymphocytes % (Manual) Monocytes % (Manual) Eosinophils % (Manual) Basophils % (Manual) Nucleated RBC % Seg Neutrophils # Seg Neutrophils # Man Lymphocytes # (Manual) Monocytes # (Manual) Eosinophils # (Manual) PT INR Fibrinogen dRVVT Confirm Interp Factor V Activity POC ABG pH POC ABG pCO2 POC ABG pO2 ABG pO2 ABG HCO3 ABG Base Excess ABG Hemoglobin Oxyhemoglobin Sodium Potassium Chloride Carbon Dioxide BUN Creatinine Glucose POC Glucose 124 H 162 H 139 H Lactic Acid Calcium Phosphorus Magnesium Direct Bilirubin AST ALT Alkaline Phosphatase Lactate Dehydrogenase Troponin T C-Reactive Protein Total Protein Albumin Prealbumin Triglycerides Cholesterol LDL Cholesterol Direct HDL Cholesterol Urine pH Urine WBC (Auto) Urine Creatinine Urine Total Protein Fluid Total Protein Vancomycin Trough Rheumatoid Factor Complement C4 Miscellaneous Test Crossmatch 11/19/16 11/19/16 11/20/16 05:00 12:43 00:40 WBC RBC Hgb Hct MCV MCH MCHC RDW Plt Count Lymph % (Auto) [place] % (Auto) Lymph # [place] # Baso # Seg Neutrophils % Seg Neuts % (Manual) Lymphocytes % (Manual) Monocytes % (Manual) Eosinophils % (Manual) Basophils % (Manual) Nucleated RBC % Seg Neutrophils # Seg Neutrophils # Man Lymphocytes # (Manual) Monocytes # (Manual) Eosinophils # (Manual) PT INR Fibrinogen dRVVT Confirm Interp Factor V Activity POC ABG pH POC ABG pCO2 POC ABG pO2 ABG pO2 ABG HCO3 ABG Base Excess ABG Hemoglobin Oxyhemoglobin Sodium Potassium Chloride Carbon Dioxide BUN Creatinine Glucose POC Glucose 110 H 125 H 136 H Lactic Acid Calcium Phosphorus Magnesium Direct Bilirubin AST ALT Alkaline Phosphatase Lactate Dehydrogenase Troponin T C-Reactive Protein Total Protein Albumin Prealbumin Triglycerides Cholesterol LDL Cholesterol Direct HDL Cholesterol Urine pH Urine WBC (Auto) Urine Creatinine Urine Total Protein Fluid Total Protein Vancomycin Trough Rheumatoid Factor Complement C4 Miscellaneous Test Crossmatch 11/20/16 11/20/16 11/20/16 05:00 05:00 05:51 WBC 13.1 H RBC 2.74 L Hgb 7.7 L Hct 23.6 L MCV MCH MCHC RDW 16.9 H Plt Count Lymph % (Auto) [place] % (Auto) 10.8 H Lymph # [place] # 1.4 H Baso # Seg Neutrophils % Seg Neuts % (Manual) Lymphocytes % (Manual) Monocytes % (Manual) Eosinophils % (Manual) Basophils % (Manual) Nucleated RBC % Seg Neutrophils # 7.9 H Seg Neutrophils # Man Lymphocytes # (Manual) Monocytes # (Manual) Eosinophils # (Manual) PT INR Fibrinogen dRVVT Confirm Interp Factor V Activity POC ABG pH POC ABG pCO2 POC ABG pO2 ABG pO2 ABG HCO3 ABG Base Excess ABG Hemoglobin Oxyhemoglobin Sodium Potassium Chloride Carbon Dioxide BUN 31 H Creatinine 1.8 H Glucose 129 H POC Glucose 133 H Lactic Acid Calcium Phosphorus Magnesium Direct Bilirubin AST ALT Alkaline Phosphatase Lactate Dehydrogenase Troponin T C-Reactive Protein Total Protein Albumin Prealbumin Triglycerides Cholesterol LDL Cholesterol Direct HDL Cholesterol Urine pH Urine WBC (Auto) Urine Creatinine Urine Total Protein Fluid Total Protein Vancomycin Trough Rheumatoid Factor Complement C4 Miscellaneous Test Crossmatch 11/20/16 11/20/16 11/21/16 12:40 18:10 01:20 WBC RBC Hgb Hct MCV MCH MCHC RDW Plt Count Lymph % (Auto) [place] % (Auto) Lymph # [place] # Baso # Seg Neutrophils % Seg Neuts % (Manual) Lymphocytes % (Manual) Monocytes % (Manual) Eosinophils % (Manual) Basophils % (Manual) Nucleated RBC % Seg Neutrophils # Seg Neutrophils # Man Lymphocytes # (Manual) Monocytes # (Manual) Eosinophils # (Manual) PT INR Fibrinogen dRVVT Confirm Interp Factor V Activity POC ABG pH POC ABG pCO2 POC ABG pO2 ABG pO2 ABG HCO3 ABG Base Excess ABG Hemoglobin Oxyhemoglobin Sodium Potassium Chloride Carbon Dioxide BUN Creatinine Glucose POC Glucose 134 H 138 H 136 H Lactic Acid Calcium Phosphorus Magnesium Direct Bilirubin AST ALT Alkaline Phosphatase Lactate Dehydrogenase Troponin T C-Reactive Protein Total Protein Albumin Prealbumin Triglycerides Cholesterol LDL Cholesterol Direct HDL Cholesterol Urine pH Urine WBC (Auto) Urine Creatinine Urine Total Protein Fluid Total Protein Vancomycin Trough Rheumatoid Factor Complement C4 Miscellaneous Test Crossmatch 1011/21/16 11/21/16 07:04 07:45 07:45 WBC 22.0 H RBC 2.91 L Hgb 8.2 L Hct 25.4 L MCV MCH MCHC RDW 17.1 H Plt Count Lymph % (Auto) [place] % (Auto) Lymph # [place] # Baso # Seg Neutrophils % Seg Neuts % (Manual) Lymphocytes % (Manual) 8.0 L Monocytes % (Manual) Eosinophils % (Manual) Basophils % (Manual) Nucleated RBC % Seg Neutrophils # Seg Neutrophils # Man 14.7 H Lymphocytes # (Manual) Monocytes # (Manual) 1.1 H Eosinophils # (Manual) PT INR Fibrinogen dRVVT Confirm Interp Factor V Activity POC ABG pH POC ABG pCO2 POC ABG pO2 ABG pO2 ABG HCO3 ABG Base Excess ABG Hemoglobin Oxyhemoglobin Sodium Potassium Chloride Carbon Dioxide BUN 42 H Creatinine 2.0 H Glucose POC Glucose 108 H Lactic Acid Calcium Phosphorus Magnesium Direct Bilirubin AST ALT Alkaline Phosphatase Lactate Dehydrogenase Troponin T C-Reactive Protein Total Protein Albumin Prealbumin Triglycerides Cholesterol LDL Cholesterol Direct HDL Cholesterol Urine pH Urine WBC (Auto) Urine Creatinine Urine Total Protein Fluid Total Protein Vancomycin Trough Rheumatoid Factor Complement C4 Miscellaneous Test Crossmatch 11/21/16 11/21/16 11/21/16 08:38 10:09 11:20 WBC RBC Hgb Hct MCV MCH MCHC RDW Plt Count Lymph % (Auto) [place] % (Auto) Lymph # [place] # Baso # Seg Neutrophils % Seg Neuts % (Manual) Lymphocytes % (Manual) Monocytes % (Manual) Eosinophils % (Manual) Basophils % (Manual) Nucleated RBC % Seg Neutrophils # Seg Neutrophils # Man Lymphocytes # (Manual) Monocytes # (Manual) Eosinophils # (Manual) PT INR Fibrinogen dRVVT Confirm Interp Factor V Activity POC ABG pH 7.346 L POC ABG pCO2 34.4 L POC ABG pO2 314 H ABG pO2 ABG HCO3 ABG Base Excess ABG Hemoglobin Oxyhemoglobin Sodium Potassium Chloride Carbon Dioxide BUN Creatinine Glucose POC Glucose 195 H 153 H Lactic Acid Calcium Phosphorus Magnesium Direct Bilirubin AST ALT Alkaline Phosphatase Lactate Dehydrogenase Troponin T C-Reactive Protein Total Protein Albumin Prealbumin Triglycerides Cholesterol LDL Cholesterol Direct HDL Cholesterol Urine pH Urine WBC (Auto) Urine Creatinine Urine Total Protein Fluid Total Protein Vancomycin Trough Rheumatoid Factor Complement C4 Miscellaneous Test Crossmatch 11/21/16 11/22/16 11/22/16 23:37 04:48 05:00 WBC 29.7 H RBC 2.73 L Hgb 7.5 L Hct 24.2 L MCV MCH 27 L MCHC RDW 17.4 H Plt Count Lymph % (Auto) [place] % (Auto) Lymph # [place] # Baso # Seg Neutrophils % Seg Neuts % (Manual) Lymphocytes % (Manual) 7.0 L Monocytes % (Manual) Eosinophils % (Manual) Basophils % (Manual) Nucleated RBC % Seg Neutrophils # Seg Neutrophils # Man 15.4 H Lymphocytes # (Manual) Monocytes # (Manual) Eosinophils # (Manual) PT INR Fibrinogen dRVVT Confirm Interp Factor V Activity POC ABG pH POC ABG pCO2 24.6 L POC ABG pO2 189 H ABG pO2 ABG HCO3 ABG Base Excess ABG Hemoglobin Oxyhemoglobin Sodium Potassium Chloride Carbon Dioxide BUN Creatinine Glucose POC Glucose 65 L Lactic Acid Calcium Phosphorus Magnesium Direct Bilirubin AST ALT Alkaline Phosphatase Lactate Dehydrogenase Troponin T C-Reactive Protein Total Protein Albumin Prealbumin Triglycerides Cholesterol LDL Cholesterol Direct HDL Cholesterol Urine pH Urine WBC (Auto) Urine Creatinine Urine Total Protein Fluid Total Protein Vancomycin Trough Rheumatoid Factor Complement C4 Miscellaneous Test Crossmatch 11/22/16 11/23/16 11/23/16 05:00 03:44 04:06 WBC RBC 2.52 L Hgb 7.2 L Hct 21.5 L MCV MCH MCHC RDW 17.1 H Plt Count Lymph % (Auto) [place] % (Auto) 12.4 H Lymph # [place] # 1.4 H Baso # Seg Neutrophils % Seg Neuts % (Manual) Lymphocytes % (Manual) Monocytes % (Manual) Eosinophils % (Manual) Basophils % (Manual) Nucleated RBC % Seg Neutrophils # Seg Neutrophils # Man Lymphocytes # (Manual) Monocytes # (Manual) Eosinophils # (Manual) PT INR Fibrinogen dRVVT Confirm Interp Factor V Activity POC ABG pH 7.493 H POC ABG pCO2 29.5 L POC ABG pO2 49 L ABG pO2 ABG HCO3 ABG Base Excess ABG Hemoglobin Oxyhemoglobin Sodium 134 L Potassium Chloride 95.9 L Carbon Dioxide 14 L D BUN 51 H Creatinine 2.6 H Glucose POC Glucose Lactic Acid Calcium Phosphorus Magnesium Direct Bilirubin AST ALT Alkaline Phosphatase Lactate Dehydrogenase Troponin T C-Reactive Protein Total Protein Albumin Prealbumin Triglycerides Cholesterol LDL Cholesterol Direct HDL Cholesterol Urine pH Urine WBC (Auto) Urine Creatinine Urine Total Protein Fluid Total Protein Vancomycin Trough Rheumatoid Factor Complement C4 Miscellaneous Test Crossmatch 11/23/16 11/23/16 11/24/16 04:06 11:29 06:39 WBC RBC Hgb Hct MCV MCH MCHC RDW Plt Count Lymph % (Auto) [place] % (Auto) Lymph # [place] # Baso # Seg Neutrophils % Seg Neuts % (Manual) Lymphocytes % (Manual) Monocytes % (Manual) Eosinophils % (Manual) Basophils % (Manual) Nucleated RBC % Seg Neutrophils # Seg Neutrophils # Man Lymphocytes # (Manual) Monocytes # (Manual) Eosinophils # (Manual) PT INR Fibrinogen dRVVT Confirm Interp Factor V Activity POC ABG pH POC ABG pCO2 POC ABG pO2 ABG pO2 ABG HCO3 ABG Base Excess ABG Hemoglobin Oxyhemoglobin Sodium 136 L Potassium Chloride 95.2 L Carbon Dioxide BUN 60 H Creatinine 2.9 H Glucose POC Glucose 69 L 305 H Lactic Acid Calcium Phosphorus Magnesium 1.60 L Direct Bilirubin AST ALT Alkaline Phosphatase Lactate Dehydrogenase Troponin T C-Reactive Protein Total Protein Albumin Prealbumin Triglycerides Cholesterol LDL Cholesterol Direct HDL Cholesterol Urine pH Urine WBC (Auto) Urine Creatinine Urine Total Protein Fluid Total Protein Vancomycin Trough Rheumatoid Factor Complement C4 Miscellaneous Test Crossmatch 11/24/16 11/24/16 11/24/16 06:43 08:08 08:08 WBC 11.2 H RBC 2.47 L Hgb 6.8 L Hct 20.6 L MCV MCH MCHC RDW 17.0 H Plt Count Lymph % (Auto) [place] % (Auto) 10.3 H Lymph # [place] # 1.2 H Baso # Seg Neutrophils % Seg Neuts % (Manual) Lymphocytes % (Manual) Monocytes % (Manual) Eosinophils % (Manual) Basophils % (Manual) Nucleated RBC % Seg Neutrophils # Seg Neutrophils # Man Lymphocytes # (Manual) Monocytes # (Manual) Eosinophils # (Manual) PT INR Fibrinogen dRVVT Confirm Interp Factor V Activity POC ABG pH POC ABG pCO2 POC ABG pO2 ABG pO2 ABG HCO3 ABG Base Excess ABG Hemoglobin Oxyhemoglobin Sodium 135 L Potassium Chloride 96.3 L Carbon Dioxide BUN 61 H Creatinine 3.1 H Glucose POC Glucose 62 L Lactic Acid Calcium 8.2 L Phosphorus Magnesium Direct Bilirubin AST ALT Alkaline Phosphatase Lactate Dehydrogenase Troponin T C-Reactive Protein Total Protein Albumin Prealbumin Triglycerides Cholesterol LDL Cholesterol Direct HDL Cholesterol Urine pH Urine WBC (Auto) Urine Creatinine Urine Total Protein Fluid Total Protein Vancomycin Trough Rheumatoid Factor Complement C4 Miscellaneous Test Crossmatch 11/24/16 11/24/16 11/24/16 08:34 11:20 12:41 WBC RBC Hgb Hct MCV MCH MCHC RDW Plt Count Lymph % (Auto) [place] % (Auto) Lymph # [place] # Baso # Seg Neutrophils % Seg Neuts % (Manual) Lymphocytes % (Manual) Monocytes % (Manual) Eosinophils % (Manual) Basophils % (Manual) Nucleated RBC % Seg Neutrophils # Seg Neutrophils # Man Lymphocytes # (Manual) Monocytes # (Manual) Eosinophils # (Manual) PT INR Fibrinogen dRVVT Confirm Interp Factor V Activity POC ABG pH POC ABG pCO2 POC ABG pO2 ABG pO2 ABG HCO3 ABG Base Excess ABG Hemoglobin Oxyhemoglobin Sodium Potassium Chloride Carbon Dioxide BUN Creatinine Glucose POC Glucose 108 H Lactic Acid Calcium Phosphorus Magnesium 1.60 L Direct Bilirubin AST ALT Alkaline Phosphatase Lactate Dehydrogenase Troponin T C-Reactive Protein Total Protein Albumin Prealbumin Triglycerides Cholesterol LDL Cholesterol Direct HDL Cholesterol Urine pH Urine WBC (Auto) Urine Creatinine Urine Total Protein Fluid Total Protein Vancomycin Trough Rheumatoid Factor Complement C4 Miscellaneous Test Crossmatch See Detail 11/25/16 11/25/16 11/25/16 00:03 04:42 04:42 WBC RBC 3.03 L Hgb 8.6 L Hct 25.3 L MCV MCH MCHC RDW 16.2 H Plt Count Lymph % (Auto) [place] % (Auto) 8.1 H Lymph # [place] # Baso # Seg Neutrophils % 71.3 H Seg Neuts % (Manual) Lymphocytes % (Manual) Monocytes % (Manual) Eosinophils % (Manual) Basophils % (Manual) Nucleated RBC % Seg Neutrophils # Seg Neutrophils # Man Lymphocytes # (Manual) Monocytes # (Manual) Eosinophils # (Manual) PT INR Fibrinogen dRVVT Confirm Interp Factor V Activity POC ABG pH POC ABG pCO2 POC ABG pO2 ABG pO2 ABG HCO3 ABG Base Excess ABG Hemoglobin Oxyhemoglobin Sodium Potassium Chloride Carbon Dioxide BUN 61 H Creatinine 3.0 H Glucose 102 H POC Glucose 113 H Lactic Acid Calcium 8.2 L Phosphorus Magnesium Direct Bilirubin AST ALT Alkaline Phosphatase 142 H Lactate Dehydrogenase Troponin T C-Reactive Protein Total Protein 5.7 L Albumin 1.5 L Prealbumin Triglycerides Cholesterol LDL Cholesterol Direct HDL Cholesterol Urine pH Urine WBC (Auto) Urine Creatinine Urine Total Protein Fluid Total Protein Vancomycin Trough Rheumatoid Factor Complement C4 Miscellaneous Test Crossmatch 11/25/16 11/25/16 11/25/16 05:12 11:31 14:12 WBC RBC Hgb Hct MCV MCH MCHC RDW Plt Count Lymph % (Auto) [place] % (Auto) Lymph # [place] # Baso # Seg Neutrophils % Seg Neuts % (Manual) Lymphocytes % (Manual) Monocytes % (Manual) Eosinophils % (Manual) Basophils % (Manual) Nucleated RBC % Seg Neutrophils # Seg Neutrophils # Man Lymphocytes # (Manual) Monocytes # (Manual) Eosinophils # (Manual) PT INR Fibrinogen dRVVT Confirm Interp Factor V Activity POC ABG pH 7.487 H POC ABG pCO2 POC ABG pO2 153 H ABG pO2 ABG HCO3 ABG Base Excess ABG Hemoglobin Oxyhemoglobin Sodium Potassium Chloride Carbon Dioxide BUN Creatinine Glucose POC Glucose 131 H 140 H Lactic Acid Calcium Phosphorus Magnesium Direct Bilirubin AST ALT Alkaline Phosphatase Lactate Dehydrogenase Troponin T C-Reactive Protein Total Protein Albumin Prealbumin Triglycerides Cholesterol LDL Cholesterol Direct HDL Cholesterol Urine pH Urine WBC (Auto) Urine Creatinine Urine Total Protein Fluid Total Protein Vancomycin Trough Rheumatoid Factor Complement C4 Miscellaneous Test Crossmatch 11/25/16 11/26/16 11/26/16 17:23 00:09 05:13 WBC RBC 2.94 L Hgb 8.4 L Hct 24.6 L MCV MCH MCHC RDW 16.4 H Plt Count Lymph % (Auto) [place] % (Auto) 12.3 H Lymph # [place] # 1.1 H Baso # Seg Neutrophils % Seg Neuts % (Manual) Lymphocytes % (Manual) Monocytes % (Manual) Eosinophils % (Manual) Basophils % (Manual) Nucleated RBC % Seg Neutrophils # Seg Neutrophils # Man Lymphocytes # (Manual) Monocytes # (Manual) Eosinophils # (Manual) PT INR Fibrinogen dRVVT Confirm Interp Factor V Activity POC ABG pH POC ABG pCO2 POC ABG pO2 ABG pO2 ABG HCO3 ABG Base Excess ABG Hemoglobin Oxyhemoglobin Sodium Potassium Chloride Carbon Dioxide BUN Creatinine Glucose POC Glucose 146 H 112 H Lactic Acid Calcium Phosphorus Magnesium Direct Bilirubin AST ALT Alkaline Phosphatase Lactate Dehydrogenase Troponin T C-Reactive Protein Total Protein Albumin Prealbumin Triglycerides Cholesterol LDL Cholesterol Direct HDL Cholesterol Urine pH Urine WBC (Auto) Urine Creatinine Urine Total Protein Fluid Total Protein Vancomycin Trough Rheumatoid Factor Complement C4 Miscellaneous Test Crossmatch 11/26/16 11/26/16 11/26/16 05:13 05:28 11:53 WBC RBC Hgb Hct MCV MCH MCHC RDW Plt Count Lymph % (Auto) [place] % (Auto) Lymph # [place] # Baso # Seg Neutrophils % Seg Neuts % (Manual) Lymphocytes % (Manual) Monocytes % (Manual) Eosinophils % (Manual) Basophils % (Manual) Nucleated RBC % Seg Neutrophils # Seg Neutrophils # Man Lymphocytes # (Manual) Monocytes # (Manual) Eosinophils # (Manual) PT INR Fibrinogen dRVVT Confirm Interp Factor V Activity POC ABG pH POC ABG pCO2 POC ABG pO2 ABG pO2 ABG HCO3 ABG Base Excess ABG Hemoglobin Oxyhemoglobin Sodium Potassium Chloride 97.8 L Carbon Dioxide BUN 37 H Creatinine 2.0 H Glucose 109 H POC Glucose 117 H 111 H Lactic Acid Calcium 7.9 L Phosphorus 1.80 L D Magnesium Direct Bilirubin AST ALT Alkaline Phosphatase Lactate Dehydrogenase Troponin T C-Reactive Protein Total Protein Albumin Prealbumin Triglycerides Cholesterol LDL Cholesterol Direct HDL Cholesterol Urine pH Urine WBC (Auto) Urine Creatinine Urine Total Protein Fluid Total Protein Vancomycin Trough Rheumatoid Factor Complement C4 Miscellaneous Test Crossmatch 11/26/16 11/27/16 11/27/16 17:14 04:50 06:02 WBC RBC Hgb Hct MCV MCH MCHC RDW Plt Count Lymph % (Auto) [place] % (Auto) Lymph # [place] # Baso # Seg Neutrophils % Seg Neuts % (Manual) Lymphocytes % (Manual) Monocytes % (Manual) Eosinophils % (Manual) Basophils % (Manual) Nucleated RBC % Seg Neutrophils # Seg Neutrophils # Man Lymphocytes # (Manual) Monocytes # (Manual) Eosinophils # (Manual) PT INR Fibrinogen dRVVT Confirm Interp Factor V Activity POC ABG pH POC ABG pCO2 POC ABG pO2 ABG pO2 75.2 L ABG HCO3 26.4 H ABG Base Excess ABG Hemoglobin 7.6 L Oxyhemoglobin 94.8 L Sodium Potassium Chloride Carbon Dioxide BUN 49 H Creatinine 2.3 H Glucose POC Glucose 115 H Lactic Acid Calcium Phosphorus 1.50 L Magnesium Direct Bilirubin AST ALT Alkaline Phosphatase Lactate Dehydrogenase Troponin T C-Reactive Protein Total Protein Albumin Prealbumin Triglycerides Cholesterol LDL Cholesterol Direct HDL Cholesterol Urine pH Urine WBC (Auto) Urine Creatinine Urine Total Protein Fluid Total Protein Vancomycin Trough Rheumatoid Factor Complement C4 Miscellaneous Test Crossmatch 11/27/16 11/27/16 11/27/16 06:02 11:25 17:25 WBC 11.6 H RBC 2.75 L Hgb 7.6 L Hct 23.4 L MCV MCH MCHC RDW 16.5 H Plt Count Lymph % (Auto) [place] % (Auto) Lymph # [place] # Baso # Seg Neutrophils % Seg Neuts % (Manual) Lymphocytes % (Manual) Monocytes % (Manual) Eosinophils % (Manual) Basophils % (Manual) Nucleated RBC % Seg Neutrophils # Seg Neutrophils # Man Lymphocytes # (Manual) Monocytes # (Manual) Eosinophils # (Manual) PT INR Fibrinogen dRVVT Confirm Interp Factor V Activity POC ABG pH POC ABG pCO2 POC ABG pO2 ABG pO2 ABG HCO3 ABG Base Excess ABG Hemoglobin Oxyhemoglobin Sodium Potassium Chloride Carbon Dioxide BUN Creatinine Glucose POC Glucose 114 H 126 H Lactic Acid Calcium Phosphorus Magnesium Direct Bilirubin AST ALT Alkaline Phosphatase Lactate Dehydrogenase Troponin T C-Reactive Protein Total Protein Albumin Prealbumin Triglycerides Cholesterol LDL Cholesterol Direct HDL Cholesterol Urine pH Urine WBC (Auto) Urine Creatinine Urine Total Protein Fluid Total Protein Vancomycin Trough Rheumatoid Factor Complement C4 Miscellaneous Test Crossmatch 11/28/16 11/28/16 11/28/16 04:45 05:33 05:44 WBC RBC Hgb Hct MCV MCH MCHC RDW Plt Count Lymph % (Auto) [place] % (Auto) Lymph # [place] # Baso # Seg Neutrophils % Seg Neuts % (Manual) Lymphocytes % (Manual) Monocytes % (Manual) Eosinophils % (Manual) Basophils % (Manual) Nucleated RBC % Seg Neutrophils # Seg Neutrophils # Man Lymphocytes # (Manual) Monocytes # (Manual) Eosinophils # (Manual) PT INR Fibrinogen dRVVT Confirm Interp Factor V Activity POC ABG pH POC ABG pCO2 POC ABG pO2 ABG pO2 99.3 H ABG HCO3 ABG Base Excess ABG Hemoglobin 8.3 L Oxyhemoglobin Sodium Potassium Chloride Carbon Dioxide BUN 63 H Creatinine 2.4 H Glucose 102 H POC Glucose 108 H Lactic Acid Calcium Phosphorus 1.80 L Magnesium Direct Bilirubin AST ALT Alkaline Phosphatase Lactate Dehydrogenase Troponin T C-Reactive Protein Total Protein Albumin Prealbumin Triglycerides Cholesterol LDL Cholesterol Direct HDL Cholesterol Urine pH Urine WBC (Auto) Urine Creatinine Urine Total Protein Fluid Total Protein Vancomycin Trough Rheumatoid Factor Complement C4 Miscellaneous Test Crossmatch 11/28/16 11/28/16 11/28/16 12:31 16:09 23:46 WBC RBC Hgb Hct MCV MCH MCHC RDW Plt Count Lymph % (Auto) [place] % (Auto) Lymph # [place] # Baso # Seg Neutrophils % Seg Neuts % (Manual) Lymphocytes % (Manual) Monocytes % (Manual) Eosinophils % (Manual) Basophils % (Manual) Nucleated RBC % Seg Neutrophils # Seg Neutrophils # Man Lymphocytes # (Manual) Monocytes # (Manual) Eosinophils # (Manual) PT INR Fibrinogen dRVVT Confirm Interp Factor V Activity POC ABG pH POC ABG pCO2 POC ABG pO2 ABG pO2 ABG HCO3 ABG Base Excess ABG Hemoglobin Oxyhemoglobin Sodium Potassium Chloride Carbon Dioxide BUN Creatinine Glucose POC Glucose 126 H 111 H 119 H Lactic Acid Calcium Phosphorus Magnesium Direct Bilirubin AST ALT Alkaline Phosphatase Lactate Dehydrogenase Troponin T C-Reactive Protein Total Protein Albumin Prealbumin Triglycerides Cholesterol LDL Cholesterol Direct HDL Cholesterol Urine pH Urine WBC (Auto) Urine Creatinine Urine Total Protein Fluid Total Protein Vancomycin Trough Rheumatoid Factor Complement C4 Miscellaneous Test Crossmatch 11/29/16 11/29/16 11/29/16 03:33 04:52 05:10 WBC RBC Hgb Hct MCV MCH MCHC RDW Plt Count Lymph % (Auto) [place] % (Auto) Lymph # [place] # Baso # Seg Neutrophils % Seg Neuts % (Manual) Lymphocytes % (Manual) Monocytes % (Manual) Eosinophils % (Manual) Basophils % (Manual) Nucleated RBC % Seg Neutrophils # Seg Neutrophils # Man Lymphocytes # (Manual) Monocytes # (Manual) Eosinophils # (Manual) PT INR Fibrinogen dRVVT Confirm Interp Factor V Activity POC ABG pH POC ABG pCO2 POC ABG pO2 ABG pO2 ABG HCO3 ABG Base Excess ABG Hemoglobin 7.0 L Oxyhemoglobin 94.9 L Sodium Potassium Chloride Carbon Dioxide BUN 73 H Creatinine 2.7 H Glucose POC Glucose 108 H Lactic Acid Calcium Phosphorus Magnesium Direct Bilirubin AST ALT Alkaline Phosphatase Lactate Dehydrogenase Troponin T C-Reactive Protein Total Protein Albumin Prealbumin Triglycerides Cholesterol LDL Cholesterol Direct HDL Cholesterol Urine pH Urine WBC (Auto) Urine Creatinine Urine Total Protein Fluid Total Protein Vancomycin Trough Rheumatoid Factor Complement C4 Miscellaneous Test Crossmatch 11/29/16 11/29/16 11/29/16 12:16 18:05 23:46 WBC RBC Hgb Hct MCV MCH MCHC RDW Plt Count Lymph % (Auto) [place] % (Auto) Lymph # [place] # Baso # Seg Neutrophils % Seg Neuts % (Manual) Lymphocytes % (Manual) Monocytes % (Manual) Eosinophils % (Manual) Basophils % (Manual) Nucleated RBC % Seg Neutrophils # Seg Neutrophils # Man Lymphocytes # (Manual) Monocytes # (Manual) Eosinophils # (Manual) PT INR Fibrinogen dRVVT Confirm Interp Factor V Activity POC ABG pH POC ABG pCO2 POC ABG pO2 ABG pO2 ABG HCO3 ABG Base Excess ABG Hemoglobin Oxyhemoglobin Sodium Potassium Chloride Carbon Dioxide BUN Creatinine Glucose POC Glucose 133 H 146 H 141 H Lactic Acid Calcium Phosphorus Magnesium Direct Bilirubin AST ALT Alkaline Phosphatase Lactate Dehydrogenase Troponin T C-Reactive Protein Total Protein Albumin Prealbumin Triglycerides Cholesterol LDL Cholesterol Direct HDL Cholesterol Urine pH Urine WBC (Auto) Urine Creatinine Urine Total Protein Fluid Total Protein Vancomycin Trough Rheumatoid Factor Complement C4 Miscellaneous Test Crossmatch 11/30/16 11/30/16 11/30/16 04:17 04:17 04:32 WBC 12.0 H RBC 2.80 L Hgb 7.8 L Hct 23.6 L MCV MCH MCHC RDW 16.6 H Plt Count Lymph % (Auto) [place] % (Auto) 11.3 H Lymph # [place] # 1.4 H Baso # Seg Neutrophils % Seg Neuts % (Manual) Lymphocytes % (Manual) Monocytes % (Manual) Eosinophils % (Manual) Basophils % (Manual) Nucleated RBC % Seg Neutrophils # 8.2 H Seg Neutrophils # Man Lymphocytes # (Manual) Monocytes # (Manual) Eosinophils # (Manual) PT INR Fibrinogen dRVVT Confirm Interp Factor V Activity POC ABG pH POC ABG pCO2 POC ABG pO2 ABG pO2 ABG HCO3 ABG Base Excess ABG Hemoglobin Oxyhemoglobin Sodium 169 H* D Potassium 5.1 H Chloride 121.5 H Carbon Dioxide BUN 34 H Creatinine 1.3 H D Glucose 133 H POC Glucose 131 H Lactic Acid Calcium 10.3 H Phosphorus Magnesium Direct Bilirubin AST ALT Alkaline Phosphatase Lactate Dehydrogenase Troponin T C-Reactive Protein Total Protein Albumin Prealbumin Triglycerides Cholesterol LDL Cholesterol Direct HDL Cholesterol Urine pH Urine WBC (Auto) Urine Creatinine Urine Total Protein Fluid Total Protein Vancomycin Trough Rheumatoid Factor Complement C4 Miscellaneous Test Crossmatch 11/30/16 11/30/16 11/30/16 05:45 11:10 17:26 WBC RBC Hgb Hct MCV MCH MCHC RDW Plt Count Lymph % (Auto) [place] % (Auto) Lymph # [place] # Baso # Seg Neutrophils % Seg Neuts % (Manual) Lymphocytes % (Manual) Monocytes % (Manual) Eosinophils % (Manual) Basophils % (Manual) Nucleated RBC % Seg Neutrophils # Seg Neutrophils # Man Lymphocytes # (Manual) Monocytes # (Manual) Eosinophils # (Manual) PT INR Fibrinogen dRVVT Confirm Interp Factor V Activity POC ABG pH POC ABG pCO2 POC ABG pO2 ABG pO2 ABG HCO3 ABG Base Excess ABG Hemoglobin Oxyhemoglobin Sodium Potassium Chloride Carbon Dioxide BUN 45 H Creatinine 1.6 H Glucose 131 H POC Glucose 146 H 134 H Lactic Acid Calcium Phosphorus Magnesium Direct Bilirubin AST ALT Alkaline Phosphatase Lactate Dehydrogenase Troponin T C-Reactive Protein Total Protein Albumin Prealbumin Triglycerides Cholesterol LDL Cholesterol Direct HDL Cholesterol Urine pH Urine WBC (Auto) Urine Creatinine Urine Total Protein Fluid Total Protein Vancomycin Trough Rheumatoid Factor Complement C4 Miscellaneous Test Crossmatch 11/30/16 12/01/16 12/01/16 23:35 00:06 03:35 WBC RBC Hgb Hct MCV MCH MCHC RDW Plt Count Lymph % (Auto) [place] % (Auto) Lymph # [place] # Baso # Seg Neutrophils % Seg Neuts % (Manual) Lymphocytes % (Manual) Monocytes % (Manual) Eosinophils % (Manual) Basophils % (Manual) Nucleated RBC % Seg Neutrophils # Seg Neutrophils # Man Lymphocytes # (Manual) Monocytes # (Manual) Eosinophils # (Manual) PT INR Fibrinogen dRVVT Confirm Interp Factor V Activity POC ABG pH POC ABG pCO2 POC ABG pO2 ABG pO2 ABG HCO3 ABG Base Excess ABG Hemoglobin 6.9 L Oxyhemoglobin Sodium Potassium Chloride Carbon Dioxide BUN 58 H Creatinine 1.8 H Glucose 146 H POC Glucose 151 H Lactic Acid Calcium Phosphorus Magnesium Direct Bilirubin AST ALT Alkaline Phosphatase Lactate Dehydrogenase Troponin T C-Reactive Protein Total Protein Albumin Prealbumin Triglycerides Cholesterol LDL Cholesterol Direct HDL Cholesterol Urine pH Urine WBC (Auto) Urine Creatinine Urine Total Protein Fluid Total Protein Vancomycin Trough Rheumatoid Factor Complement C4 Miscellaneous Test Crossmatch 12/01/16 12/01/16 12/01/16 03:35 05:47 11:52 WBC 12.3 H RBC 2.82 L Hgb 7.8 L Hct 23.7 L MCV MCH MCHC RDW 16.7 H Plt Count Lymph % (Auto) [place] % (Auto) 9.8 H Lymph # [place] # 1.2 H Baso # Seg Neutrophils % Seg Neuts % (Manual) Lymphocytes % (Manual) Monocytes % (Manual) Eosinophils % (Manual) Basophils % (Manual) Nucleated RBC % Seg Neutrophils # 8.4 H Seg Neutrophils # Man Lymphocytes # (Manual) Monocytes # (Manual) Eosinophils # (Manual) PT INR Fibrinogen dRVVT Confirm Interp Factor V Activity POC ABG pH POC ABG pCO2 POC ABG pO2 ABG pO2 ABG HCO3 ABG Base Excess ABG Hemoglobin Oxyhemoglobin Sodium Potassium Chloride Carbon Dioxide BUN Creatinine Glucose POC Glucose 152 H 152 H Lactic Acid Calcium Phosphorus Magnesium Direct Bilirubin AST ALT Alkaline Phosphatase Lactate Dehydrogenase Troponin T C-Reactive Protein Total Protein Albumin Prealbumin Triglycerides Cholesterol LDL Cholesterol Direct HDL Cholesterol Urine pH Urine WBC (Auto) Urine Creatinine Urine Total Protein Fluid Total Protein Vancomycin Trough Rheumatoid Factor Complement C4 Miscellaneous Test Crossmatch 12/01/16 12/01/16 12/02/16 17:40 23:41 05:00 WBC RBC Hgb Hct MCV MCH MCHC RDW Plt Count Lymph % (Auto) [place] % (Auto) Lymph # [place] # Baso # Seg Neutrophils % Seg Neuts % (Manual) Lymphocytes % (Manual) Monocytes % (Manual) Eosinophils % (Manual) Basophils % (Manual) Nucleated RBC % Seg Neutrophils # Seg Neutrophils # Man Lymphocytes # (Manual) Monocytes # (Manual) Eosinophils # (Manual) PT INR Fibrinogen dRVVT Confirm Interp Factor V Activity POC ABG pH POC ABG pCO2 POC ABG pO2 ABG pO2 ABG HCO3 ABG Base Excess ABG Hemoglobin Oxyhemoglobin Sodium Potassium Chloride Carbon Dioxide BUN 45 H Creatinine Glucose 115 H POC Glucose 140 H 144 H Lactic Acid Calcium Phosphorus Magnesium Direct Bilirubin AST ALT Alkaline Phosphatase Lactate Dehydrogenase Troponin T C-Reactive Protein Total Protein Albumin Prealbumin Triglycerides Cholesterol LDL Cholesterol Direct HDL Cholesterol Urine pH Urine WBC (Auto) Urine Creatinine Urine Total Protein Fluid Total Protein Vancomycin Trough Rheumatoid Factor Complement C4 Miscellaneous Test Crossmatch 12/02/16 12/02/16 12/02/16 05:31 11:20 17:38 WBC RBC Hgb Hct MCV MCH MCHC RDW Plt Count Lymph % (Auto) [place] % (Auto) Lymph # [place] # Baso # Seg Neutrophils % Seg Neuts % (Manual) Lymphocytes % (Manual) Monocytes % (Manual) Eosinophils % (Manual) Basophils % (Manual) Nucleated RBC % Seg Neutrophils # Seg Neutrophils # Man Lymphocytes # (Manual) Monocytes # (Manual) Eosinophils # (Manual) PT INR Fibrinogen dRVVT Confirm Interp Factor V Activity POC ABG pH POC ABG pCO2 POC ABG pO2 ABG pO2 ABG HCO3 ABG Base Excess ABG Hemoglobin Oxyhemoglobin Sodium Potassium Chloride Carbon Dioxide BUN Creatinine Glucose POC Glucose 136 H 177 H 139 H Lactic Acid Calcium Phosphorus Magnesium Direct Bilirubin AST ALT Alkaline Phosphatase Lactate Dehydrogenase Troponin T C-Reactive Protein Total Protein Albumin Prealbumin Triglycerides Cholesterol LDL Cholesterol Direct HDL Cholesterol Urine pH Urine WBC (Auto) Urine Creatinine Urine Total Protein Fluid Total Protein Vancomycin Trough Rheumatoid Factor Complement C4 Miscellaneous Test Crossmatch 12/02/16 12/03/16 12/03/16 23:43 04:00 04:00 WBC 20.4 H RBC 2.74 L Hgb 7.4 L Hct 23.6 L MCV MCH 27 L MCHC RDW 17.1 H Plt Count Lymph % (Auto) [place] % (Auto) Lymph # [place] # Baso # Seg Neutrophils % Seg Neuts % (Manual) 31.0 L Lymphocytes % (Manual) Monocytes % (Manual) Eosinophils % (Manual) Basophils % (Manual) Nucleated RBC % Seg Neutrophils # Seg Neutrophils # Man Lymphocytes # (Manual) Monocytes # (Manual) Eosinophils # (Manual) PT INR Fibrinogen dRVVT Confirm Interp Factor V Activity POC ABG pH POC ABG pCO2 POC ABG pO2 ABG pO2 ABG HCO3 ABG Base Excess ABG Hemoglobin Oxyhemoglobin Sodium Potassium Chloride Carbon Dioxide BUN 61 H Creatinine 1.6 H Glucose 119 H POC Glucose 158 H Lactic Acid Calcium Phosphorus Magnesium Direct Bilirubin AST ALT Alkaline Phosphatase Lactate Dehydrogenase Troponin T C-Reactive Protein Total Protein Albumin Prealbumin Triglycerides Cholesterol LDL Cholesterol Direct HDL Cholesterol Urine pH Urine WBC (Auto) Urine Creatinine Urine Total Protein Fluid Total Protein Vancomycin Trough Rheumatoid Factor Complement C4 Miscellaneous Test Crossmatch 12/03/16 12/03/16 12/03/16 05:02 12:11 18:16 WBC RBC Hgb Hct MCV MCH MCHC RDW Plt Count Lymph % (Auto) [place] % (Auto) Lymph # [place] # Baso # Seg Neutrophils % Seg Neuts % (Manual) Lymphocytes % (Manual) Monocytes % (Manual) Eosinophils % (Manual) Basophils % (Manual) Nucleated RBC % Seg Neutrophils # Seg Neutrophils # Man Lymphocytes # (Manual) Monocytes # (Manual) Eosinophils # (Manual) PT INR Fibrinogen dRVVT Confirm Interp Factor V Activity POC ABG pH POC ABG pCO2 POC ABG pO2 ABG pO2 ABG HCO3 ABG Base Excess ABG Hemoglobin Oxyhemoglobin Sodium Potassium Chloride Carbon Dioxide BUN Creatinine Glucose POC Glucose 146 H 157 H 124 H Lactic Acid Calcium Phosphorus Magnesium Direct Bilirubin AST ALT Alkaline Phosphatase Lactate Dehydrogenase Troponin T C-Reactive Protein Total Protein Albumin Prealbumin Triglycerides Cholesterol LDL Cholesterol Direct HDL Cholesterol Urine pH Urine WBC (Auto) Urine Creatinine Urine Total Protein Fluid Total Protein Vancomycin Trough Rheumatoid Factor Complement C4 Miscellaneous Test Crossmatch 12/03/16 12/04/16 12/04/16 23:41 04:00 04:45 WBC RBC Hgb Hct MCV MCH MCHC RDW Plt Count Lymph % (Auto) [place] % (Auto) Lymph # [place] # Baso # Seg Neutrophils % Seg Neuts % (Manual) Lymphocytes % (Manual) Monocytes % (Manual) Eosinophils % (Manual) Basophils % (Manual) Nucleated RBC % Seg Neutrophils # Seg Neutrophils # Man Lymphocytes # (Manual) Monocytes # (Manual) Eosinophils # (Manual) PT INR Fibrinogen dRVVT Confirm Interp Factor V Activity POC ABG pH POC ABG pCO2 POC ABG pO2 ABG pO2 ABG HCO3 ABG Base Excess ABG Hemoglobin Oxyhemoglobin Sodium Potassium Chloride Carbon Dioxide BUN 76 H Creatinine 1.6 H Glucose POC Glucose 130 H 136 H Lactic Acid Calcium Phosphorus Magnesium Direct Bilirubin AST ALT Alkaline Phosphatase 155 H Lactate Dehydrogenase Troponin T C-Reactive Protein Total Protein 5.5 L Albumin 1.5 L Prealbumin Triglycerides Cholesterol LDL Cholesterol Direct HDL Cholesterol Urine pH Urine WBC (Auto) Urine Creatinine Urine Total Protein Fluid Total Protein Vancomycin Trough Rheumatoid Factor Complement C4 Miscellaneous Test Crossmatch 12/04/16 12/04/16 12/05/16 12:08 17:23 00:10 WBC RBC Hgb Hct MCV MCH MCHC RDW Plt Count Lymph % (Auto) [place] % (Auto) Lymph # [place] # Baso # Seg Neutrophils % Seg Neuts % (Manual) Lymphocytes % (Manual) Monocytes % (Manual) Eosinophils % (Manual) Basophils % (Manual) Nucleated RBC % Seg Neutrophils # Seg Neutrophils # Man Lymphocytes # (Manual) Monocytes # (Manual) Eosinophils # (Manual) PT INR Fibrinogen dRVVT Confirm Interp Factor V Activity POC ABG pH POC ABG pCO2 POC ABG pO2 ABG pO2 ABG HCO3 ABG Base Excess ABG Hemoglobin Oxyhemoglobin Sodium Potassium Chloride Carbon Dioxide BUN Creatinine Glucose POC Glucose 114 H 129 H 124 H Lactic Acid Calcium Phosphorus Magnesium Direct Bilirubin AST ALT Alkaline Phosphatase Lactate Dehydrogenase Troponin T C-Reactive Protein Total Protein Albumin Prealbumin Triglycerides Cholesterol LDL Cholesterol Direct HDL Cholesterol Urine pH Urine WBC (Auto) Urine Creatinine Urine Total Protein Fluid Total Protein Vancomycin Trough Rheumatoid Factor Complement C4 Miscellaneous Test Crossmatch 12/05/16 12/05/16 12/05/16 05:00 05:00 05:18 WBC RBC Hgb Hct MCV MCH MCHC RDW Plt Count Lymph % (Auto) [place] % (Auto) Lymph # [place] # Baso # Seg Neutrophils % Seg Neuts % (Manual) Lymphocytes % (Manual) Monocytes % (Manual) Eosinophils % (Manual) Basophils % (Manual) Nucleated RBC % Seg Neutrophils # Seg Neutrophils # Man Lymphocytes # (Manual) Monocytes # (Manual) Eosinophils # (Manual) PT INR Fibrinogen dRVVT Confirm Interp Factor V Activity POC ABG pH POC ABG pCO2 POC ABG pO2 ABG pO2 ABG HCO3 ABG Base Excess ABG Hemoglobin Oxyhemoglobin Sodium Potassium Chloride Carbon Dioxide 21 L BUN 85 H Creatinine 1.9 H Glucose 131 H POC Glucose 154 H Lactic Acid Calcium Phosphorus Magnesium Direct Bilirubin AST ALT Alkaline Phosphatase Lactate Dehydrogenase Troponin T C-Reactive Protein 19.30 H Total Protein Albumin Prealbumin Triglycerides Cholesterol LDL Cholesterol Direct HDL Cholesterol Urine pH Urine WBC (Auto) Urine Creatinine Urine Total Protein Fluid Total Protein Vancomycin Trough Rheumatoid Factor Complement C4 Miscellaneous Test Crossmatch 12/05/16 12/05/16 12/05/16 11:43 17:46 23:25 WBC RBC Hgb Hct MCV MCH MCHC RDW Plt Count Lymph % (Auto) [place] % (Auto) Lymph # [place] # Baso # Seg Neutrophils % Seg Neuts % (Manual) Lymphocytes % (Manual) Monocytes % (Manual) Eosinophils % (Manual) Basophils % (Manual) Nucleated RBC % Seg Neutrophils # Seg Neutrophils # Man Lymphocytes # (Manual) Monocytes # (Manual) Eosinophils # (Manual) PT INR Fibrinogen dRVVT Confirm Interp Factor V Activity POC ABG pH POC ABG pCO2 POC ABG pO2 ABG pO2 ABG HCO3 ABG Base Excess ABG Hemoglobin Oxyhemoglobin Sodium Potassium Chloride Carbon Dioxide BUN Creatinine Glucose POC Glucose 117 H 113 H 111 H Lactic Acid Calcium Phosphorus Magnesium Direct Bilirubin AST ALT Alkaline Phosphatase Lactate Dehydrogenase Troponin T C-Reactive Protein Total Protein Albumin Prealbumin Triglycerides Cholesterol LDL Cholesterol Direct HDL Cholesterol Urine pH Urine WBC (Auto) Urine Creatinine Urine Total Protein Fluid Total Protein Vancomycin Trough Rheumatoid Factor Complement C4 Miscellaneous Test Crossmatch 12/05/16 12/06/16 12/06/16 Unknown 04:58 06:00 WBC RBC Hgb Hct MCV MCH MCHC RDW Plt Count Lymph % (Auto) [place] % (Auto) Lymph # [place] # Baso # Seg Neutrophils % Seg Neuts % (Manual) Lymphocytes % (Manual) Monocytes % (Manual) Eosinophils % (Manual) Basophils % (Manual) Nucleated RBC % Seg Neutrophils # Seg Neutrophils # Man Lymphocytes # (Manual) Monocytes # (Manual) Eosinophils # (Manual) PT INR Fibrinogen dRVVT Confirm Interp Factor V Activity POC ABG pH POC ABG pCO2 POC ABG pO2 ABG pO2 75.2 L ABG HCO3 ABG Base Excess -3.4 L ABG Hemoglobin 7.4 L Oxyhemoglobin 94.5 L Sodium Potassium Chloride Carbon Dioxide 20 L BUN 99 H Creatinine 2.1 H Glucose 126 H POC Glucose 145 H Lactic Acid Calcium Phosphorus 4.80 H Magnesium Direct Bilirubin AST ALT Alkaline Phosphatase Lactate Dehydrogenase Troponin T C-Reactive Protein Total Protein Albumin Prealbumin Triglycerides Cholesterol LDL Cholesterol Direct HDL Cholesterol Urine pH Urine WBC (Auto) Urine Creatinine Urine Total Protein Fluid Total Protein Vancomycin Trough Rheumatoid Factor Complement C4 Miscellaneous Test Crossmatch 12/06/16 12/06/16 12/06/16 06:46 11:54 17:55 WBC RBC Hgb 8.3 L Hct 26.4 L MCV MCH MCHC RDW Plt Count Lymph % (Auto) [place] % (Auto) Lymph # [place] # Baso # Seg Neutrophils % Seg Neuts % (Manual) Lymphocytes % (Manual) Monocytes % (Manual) Eosinophils % (Manual) Basophils % (Manual) Nucleated RBC % Seg Neutrophils # Seg Neutrophils # Man Lymphocytes # (Manual) Monocytes # (Manual) Eosinophils # (Manual) PT INR Fibrinogen dRVVT Confirm Interp Factor V Activity POC ABG pH POC ABG pCO2 POC ABG pO2 ABG pO2 ABG HCO3 ABG Base Excess ABG Hemoglobin Oxyhemoglobin Sodium Potassium Chloride Carbon Dioxide BUN Creatinine Glucose POC Glucose 126 H 157 H Lactic Acid Calcium Phosphorus Magnesium Direct Bilirubin AST ALT Alkaline Phosphatase Lactate Dehydrogenase Troponin T C-Reactive Protein Total Protein Albumin Prealbumin Triglycerides Cholesterol LDL Cholesterol Direct HDL Cholesterol Urine pH Urine WBC (Auto) Urine Creatinine Urine Total Protein Fluid Total Protein Vancomycin Trough Rheumatoid Factor Complement C4 Miscellaneous Test Crossmatch 12/06/16 12/07/16 12/07/16 23:59 05:34 06:30 WBC RBC Hgb Hct MCV MCH MCHC RDW Plt Count Lymph % (Auto) [place] % (Auto) Lymph # [place] # Baso # Seg Neutrophils % Seg Neuts % (Manual) Lymphocytes % (Manual) Monocytes % (Manual) Eosinophils % (Manual) Basophils % (Manual) Nucleated RBC % Seg Neutrophils # Seg Neutrophils # Man Lymphocytes # (Manual) Monocytes # (Manual) Eosinophils # (Manual) PT INR Fibrinogen dRVVT Confirm Interp Factor V Activity POC ABG pH POC ABG pCO2 POC ABG pO2 ABG pO2 ABG HCO3 ABG Base Excess ABG Hemoglobin Oxyhemoglobin Sodium Potassium Chloride Carbon Dioxide BUN 67 H Creatinine 1.4 H Glucose 126 H POC Glucose 129 H 129 H Lactic Acid Calcium Phosphorus Magnesium Direct Bilirubin AST ALT Alkaline Phosphatase Lactate Dehydrogenase Troponin T C-Reactive Protein Total Protein Albumin Prealbumin Triglycerides Cholesterol LDL Cholesterol Direct HDL Cholesterol Urine pH Urine WBC (Auto) Urine Creatinine Urine Total Protein Fluid Total Protein Vancomycin Trough Rheumatoid Factor Complement C4 Miscellaneous Test Crossmatch 12/07/16 12/07/16 12/07/16 06:30 08:00 09:45 WBC 18.8 H RBC 2.52 L Hgb 6.9 L 6.8 L Hct 21.2 L 21.1 L MCV MCH 27 L MCHC RDW 18.0 H Plt Count Lymph % (Auto) [place] % (Auto) 9.9 H Lymph # [place] # 1.9 H Baso # Seg Neutrophils % 71.8 H Seg Neuts % (Manual) Lymphocytes % (Manual) Monocytes % (Manual) Eosinophils % (Manual) Basophils % (Manual) Nucleated RBC % Seg Neutrophils # 13.5 H Seg Neutrophils # Man Lymphocytes # (Manual) Monocytes # (Manual) Eosinophils # (Manual) PT INR Fibrinogen dRVVT Confirm Interp Factor V Activity POC ABG pH POC ABG pCO2 POC ABG pO2 ABG pO2 ABG HCO3 ABG Base Excess ABG Hemoglobin Oxyhemoglobin Sodium Potassium Chloride Carbon Dioxide BUN Creatinine Glucose POC Glucose Lactic Acid Calcium Phosphorus Magnesium Direct Bilirubin AST ALT Alkaline Phosphatase Lactate Dehydrogenase Troponin T C-Reactive Protein Total Protein Albumin Prealbumin Triglycerides Cholesterol LDL Cholesterol Direct HDL Cholesterol Urine pH Urine WBC (Auto) Urine Creatinine Urine Total Protein Fluid Total Protein Vancomycin Trough Rheumatoid Factor Complement C4 Miscellaneous Test Crossmatch See Detail 12/07/16 12/07/16 12/07/16 11:44 18:19 23:59 WBC RBC Hgb Hct MCV MCH MCHC RDW Plt Count Lymph % (Auto) [place] % (Auto) Lymph # [place] # Baso # Seg Neutrophils % Seg Neuts % (Manual) Lymphocytes % (Manual) Monocytes % (Manual) Eosinophils % (Manual) Basophils % (Manual) Nucleated RBC % Seg Neutrophils # Seg Neutrophils # Man Lymphocytes # (Manual) Monocytes # (Manual) Eosinophils # (Manual) PT INR Fibrinogen dRVVT Confirm Interp Factor V Activity POC ABG pH POC ABG pCO2 POC ABG pO2 ABG pO2 ABG HCO3 ABG Base Excess ABG Hemoglobin Oxyhemoglobin Sodium Potassium Chloride Carbon Dioxide BUN Creatinine Glucose POC Glucose 137 H 138 H 133 H Lactic Acid Calcium Phosphorus Magnesium Direct Bilirubin AST ALT Alkaline Phosphatase Lactate Dehydrogenase Troponin T C-Reactive Protein Total Protein Albumin Prealbumin Triglycerides Cholesterol LDL Cholesterol Direct HDL Cholesterol Urine pH Urine WBC (Auto) Urine Creatinine Urine Total Protein Fluid Total Protein Vancomycin Trough Rheumatoid Factor Complement C4 Miscellaneous Test Crossmatch 12/08/16 12/08/16 12/08/16 05:25 05:30 05:30 WBC 23.8 H RBC 2.88 L Hgb 8.1 L Hct 24.3 L MCV MCH MCHC RDW 16.7 H Plt Count Lymph % (Auto) [place] % (Auto) Lymph # [place] # Baso # Seg Neutrophils % Seg Neuts % (Manual) 76.0 H Lymphocytes % (Manual) 9.0 L Monocytes % (Manual) 9.0 H Eosinophils % (Manual) Basophils % (Manual) Nucleated RBC % Seg Neutrophils # Seg Neutrophils # Man 18.1 H Lymphocytes # (Manual) Monocytes # (Manual) 2.1 H Eosinophils # (Manual) PT INR Fibrinogen dRVVT Confirm Interp Factor V Activity POC ABG pH POC ABG pCO2 POC ABG pO2 ABG pO2 ABG HCO3 ABG Base Excess ABG Hemoglobin Oxyhemoglobin Sodium Potassium Chloride Carbon Dioxide 21 L BUN 76 H Creatinine 1.6 H Glucose 133 H POC Glucose 177 H Lactic Acid Calcium Phosphorus Magnesium Direct Bilirubin AST ALT Alkaline Phosphatase Lactate Dehydrogenase Troponin T C-Reactive Protein Total Protein Albumin Prealbumin Triglycerides Cholesterol LDL Cholesterol Direct HDL Cholesterol Urine pH Urine WBC (Auto) Urine Creatinine Urine Total Protein Fluid Total Protein Vancomycin Trough Rheumatoid Factor Complement C4 Miscellaneous Test Crossmatch 12/08/16 12/08/16 12/09/16 11:45 18:00 00:00 WBC RBC Hgb Hct MCV MCH MCHC RDW Plt Count Lymph % (Auto) [place] % (Auto) Lymph # [place] # Baso # Seg Neutrophils % Seg Neuts % (Manual) Lymphocytes % (Manual) Monocytes % (Manual) Eosinophils % (Manual) Basophils % (Manual) Nucleated RBC % Seg Neutrophils # Seg Neutrophils # Man Lymphocytes # (Manual) Monocytes # (Manual) Eosinophils # (Manual) PT INR Fibrinogen dRVVT Confirm Interp Factor V Activity POC ABG pH POC ABG pCO2 POC ABG pO2 ABG pO2 ABG HCO3 ABG Base Excess ABG Hemoglobin Oxyhemoglobin Sodium Potassium Chloride Carbon Dioxide BUN Creatinine Glucose POC Glucose 163 H 123 H 137 H Lactic Acid Calcium Phosphorus Magnesium Direct Bilirubin AST ALT Alkaline Phosphatase Lactate Dehydrogenase Troponin T C-Reactive Protein Total Protein Albumin Prealbumin Triglycerides Cholesterol LDL Cholesterol Direct HDL Cholesterol Urine pH Urine WBC (Auto) Urine Creatinine Urine Total Protein Fluid Total Protein Vancomycin Trough Rheumatoid Factor Complement C4 Miscellaneous Test Crossmatch 12/09/16 12/09/16 12/09/16 05:34 06:00 06:00 WBC 15.5 H RBC 2.87 L Hgb 8.0 L Hct 24.2 L MCV MCH MCHC RDW 17.2 H Plt Count Lymph % (Auto) [place] % (Auto) 11.6 H Lymph # [place] # 1.8 H Baso # Seg Neutrophils % 70.8 H Seg Neuts % (Manual) Lymphocytes % (Manual) Monocytes % (Manual) Eosinophils % (Manual) Basophils % (Manual) Nucleated RBC % Seg Neutrophils # 11.0 H Seg Neutrophils # Man Lymphocytes # (Manual) Monocytes # (Manual) Eosinophils # (Manual) PT INR Fibrinogen dRVVT Confirm Interp Factor V Activity POC ABG pH POC ABG pCO2 POC ABG pO2 ABG pO2 ABG HCO3 ABG Base Excess ABG Hemoglobin Oxyhemoglobin Sodium Potassium Chloride Carbon Dioxide BUN 51 H Creatinine Glucose 117 H POC Glucose 136 H Lactic Acid Calcium Phosphorus Magnesium Direct Bilirubin AST ALT Alkaline Phosphatase Lactate Dehydrogenase Troponin T C-Reactive Protein Total Protein Albumin Prealbumin Triglycerides Cholesterol LDL Cholesterol Direct HDL Cholesterol Urine pH Urine WBC (Auto) Urine Creatinine Urine Total Protein Fluid Total Protein Vancomycin Trough Rheumatoid Factor Complement C4 Miscellaneous Test Crossmatch 12/09/16 12/09/16 12/09/16 12:29 17:52 23:10 WBC RBC Hgb Hct MCV MCH MCHC RDW Plt Count Lymph % (Auto) [place] % (Auto) Lymph # [place] # Baso # Seg Neutrophils % Seg Neuts % (Manual) Lymphocytes % (Manual) Monocytes % (Manual) Eosinophils % (Manual) Basophils % (Manual) Nucleated RBC % Seg Neutrophils # Seg Neutrophils # Man Lymphocytes # (Manual) Monocytes # (Manual) Eosinophils # (Manual) PT INR Fibrinogen dRVVT Confirm Interp Factor V Activity POC ABG pH POC ABG pCO2 POC ABG pO2 ABG pO2 ABG HCO3 ABG Base Excess ABG Hemoglobin Oxyhemoglobin Sodium Potassium Chloride Carbon Dioxide BUN Creatinine Glucose POC Glucose 139 H 140 H 129 H Lactic Acid Calcium Phosphorus Magnesium Direct Bilirubin AST ALT Alkaline Phosphatase Lactate Dehydrogenase Troponin T C-Reactive Protein Total Protein Albumin Prealbumin Triglycerides Cholesterol LDL Cholesterol Direct HDL Cholesterol Urine pH Urine WBC (Auto) Urine Creatinine Urine Total Protein Fluid Total Protein Vancomycin Trough Rheumatoid Factor Complement C4 Miscellaneous Test Crossmatch 12/10/16 12/10/16 12/10/16 05:00 05:00 06:54 WBC 15.7 H RBC 2.87 L Hgb 8.2 L Hct 24.4 L MCV MCH MCHC RDW 17.2 H Plt Count Lymph % (Auto) [place] % (Auto) 8.3 H Lymph # [place] # 1.3 H Baso # Seg Neutrophils % 72.8 H Seg Neuts % (Manual) Lymphocytes % (Manual) Monocytes % (Manual) Eosinophils % (Manual) Basophils % (Manual) Nucleated RBC % Seg Neutrophils # 11.4 H Seg Neutrophils # Man Lymphocytes # (Manual) Monocytes # (Manual) Eosinophils # (Manual) PT INR Fibrinogen dRVVT Confirm Interp Factor V Activity POC ABG pH POC ABG pCO2 POC ABG pO2 ABG pO2 ABG HCO3 ABG Base Excess ABG Hemoglobin Oxyhemoglobin Sodium Potassium Chloride Carbon Dioxide BUN 64 H Creatinine 1.4 H Glucose 134 H POC Glucose 154 H Lactic Acid Calcium Phosphorus Magnesium Direct Bilirubin AST ALT Alkaline Phosphatase Lactate Dehydrogenase Troponin T C-Reactive Protein Total Protein Albumin Prealbumin Triglycerides Cholesterol LDL Cholesterol Direct HDL Cholesterol Urine pH Urine WBC (Auto) Urine Creatinine Urine Total Protein Fluid Total Protein Vancomycin Trough Rheumatoid Factor Complement C4 Miscellaneous Test Crossmatch 12/10/16 12/10/16 12/10/16 11:58 17:29 23:52 WBC RBC Hgb Hct MCV MCH MCHC RDW Plt Count Lymph % (Auto) [place] % (Auto) Lymph # [place] # Baso # Seg Neutrophils % Seg Neuts % (Manual) Lymphocytes % (Manual) Monocytes % (Manual) Eosinophils % (Manual) Basophils % (Manual) Nucleated RBC % Seg Neutrophils # Seg Neutrophils # Man Lymphocytes # (Manual) Monocytes # (Manual) Eosinophils # (Manual) PT INR Fibrinogen dRVVT Confirm Interp Factor V Activity POC ABG pH POC ABG pCO2 POC ABG pO2 ABG pO2 ABG HCO3 ABG Base Excess ABG Hemoglobin Oxyhemoglobin Sodium Potassium Chloride Carbon Dioxide BUN Creatinine Glucose POC Glucose 144 H 163 H 125 H Lactic Acid Calcium Phosphorus Magnesium Direct Bilirubin AST ALT Alkaline Phosphatase Lactate Dehydrogenase Troponin T C-Reactive Protein Total Protein Albumin Prealbumin Triglycerides Cholesterol LDL Cholesterol Direct HDL Cholesterol Urine pH Urine WBC (Auto) Urine Creatinine Urine Total Protein Fluid Total Protein Vancomycin Trough Rheumatoid Factor Complement C4 Miscellaneous Test Crossmatch 12/11/16 12/11/16 12/11/16 05:38 06:30 06:30 WBC 14.4 H RBC 2.76 L Hgb 7.7 L Hct 23.4 L MCV MCH MCHC RDW 17.2 H Plt Count Lymph % (Auto) [place] % (Auto) 8.8 H Lymph # [place] # 1.3 H Baso # Seg Neutrophils % 72.5 H Seg Neuts % (Manual) Lymphocytes % (Manual) Monocytes % (Manual) Eosinophils % (Manual) Basophils % (Manual) Nucleated RBC % Seg Neutrophils # 10.5 H Seg Neutrophils # Man Lymphocytes # (Manual) Monocytes # (Manual) Eosinophils # (Manual) PT INR Fibrinogen dRVVT Confirm Interp Factor V Activity POC ABG pH POC ABG pCO2 POC ABG pO2 ABG pO2 ABG HCO3 ABG Base Excess ABG Hemoglobin Oxyhemoglobin Sodium Potassium Chloride Carbon Dioxide BUN 43 H Creatinine Glucose 124 H POC Glucose 141 H Lactic Acid Calcium 8.3 L Phosphorus Magnesium 1.60 L Direct Bilirubin AST ALT Alkaline Phosphatase Lactate Dehydrogenase Troponin T C-Reactive Protein Total Protein Albumin Prealbumin Triglycerides Cholesterol LDL Cholesterol Direct HDL Cholesterol Urine pH Urine WBC (Auto) Urine Creatinine Urine Total Protein Fluid Total Protein Vancomycin Trough Rheumatoid Factor Complement C4 Miscellaneous Test Crossmatch 12/11/16 12/11/16 12/11/16 11:15 17:59 23:48 WBC RBC Hgb Hct MCV MCH MCHC RDW Plt Count Lymph % (Auto) [place] % (Auto) Lymph # [place] # Baso # Seg Neutrophils % Seg Neuts % (Manual) Lymphocytes % (Manual) Monocytes % (Manual) Eosinophils % (Manual) Basophils % (Manual) Nucleated RBC % Seg Neutrophils # Seg Neutrophils # Man Lymphocytes # (Manual) Monocytes # (Manual) Eosinophils # (Manual) PT INR Fibrinogen dRVVT Confirm Interp Factor V Activity POC ABG pH POC ABG pCO2 POC ABG pO2 ABG pO2 ABG HCO3 ABG Base Excess ABG Hemoglobin Oxyhemoglobin Sodium Potassium Chloride Carbon Dioxide BUN Creatinine Glucose POC Glucose 188 H 106 H 119 H Lactic Acid Calcium Phosphorus Magnesium Direct Bilirubin AST ALT Alkaline Phosphatase Lactate Dehydrogenase Troponin T C-Reactive Protein Total Protein Albumin Prealbumin Triglycerides Cholesterol LDL Cholesterol Direct HDL Cholesterol Urine pH Urine WBC (Auto) Urine Creatinine Urine Total Protein Fluid Total Protein Vancomycin Trough Rheumatoid Factor Complement C4 Miscellaneous Test Crossmatch 12/12/16 12/12/16 12/12/16 05:00 06:01 Unknown WBC 16.7 H RBC 2.87 L Hgb 8.0 L Hct 24.2 L MCV MCH MCHC RDW 17.6 H Plt Count Lymph % (Auto) [place] % (Auto) Lymph # [place] # 1.2 H Baso # Seg Neutrophils % 75.3 H Seg Neuts % (Manual) Lymphocytes % (Manual) Monocytes % (Manual) Eosinophils % (Manual) Basophils % (Manual) Nucleated RBC % Seg Neutrophils # 12.6 H Seg Neutrophils # Man Lymphocytes # (Manual) Monocytes # (Manual) Eosinophils # (Manual) PT INR Fibrinogen dRVVT Confirm Interp Factor V Activity POC ABG pH POC ABG pCO2 POC ABG pO2 ABG pO2 ABG HCO3 ABG Base Excess ABG Hemoglobin Oxyhemoglobin Sodium Potassium Chloride Carbon Dioxide BUN 60 H Creatinine 1.3 H Glucose 126 H POC Glucose 134 H Lactic Acid Calcium Phosphorus Magnesium Direct Bilirubin AST ALT Alkaline Phosphatase Lactate Dehydrogenase Troponin T C-Reactive Protein Total Protein Albumin Prealbumin Triglycerides Cholesterol LDL Cholesterol Direct HDL Cholesterol Urine pH Urine WBC (Auto) Urine Creatinine Urine Total Protein Fluid Total Protein Vancomycin Trough Rheumatoid Factor Complement C4 Miscellaneous Test Crossmatch Allied health notes reviewed: RT
[2016-12-12] MEDS: REGLAN IV SCH ×2 (14:42→21:43)
[2016-12-12] MEDS ORDERED: INTRALIPID 20% 250 ML IV SCH (20:00)
[2016-12-12] MEDS ORDERED: TPN ADULT IV SCH (20:00)
[2016-12-13] MEDS: DUONEB *Not for PRN Use IH SCH ×4 (02:39→19:41)
[2016-12-13] MEDS: HumuLIN R SUB-Q SCH ×4 (04:38→17:52)
[2016-12-13] MEDS: APRESOLINE PO SCH ×4 (05:30→21:28)
[2016-12-13] MEDS: LOPRESSOR PO SCH ×4 (05:30→17:53)
[2016-12-13] MEDS: LASIX IV SCH (05:31)
[2016-12-13] MEDS: REGLAN IV SCH ×3 (05:31→22:05)
[2016-12-13 05:38] LABS: Basophils # (Auto) 0.1 K/mm3 (0.0-0.1); Basophils % (Auto) 0.5 % (0.0-1.8); Eosinophils # (Auto) 0.1 K/mm3 (0.0-0.4); Eosinophils % (Auto) 0.6 % (0.0-4.3); Hematocrit 24.6 % (30.3-42.9); Hemoglobin 8.3 gm/dl (10.1-14.3); Lymphocytes # (Auto) 3.8 K/mm3 (1.2-5.4); Lymphocytes % (Auto) 20.2 % (13.4-35.0); Mean Corpuscular HGB Conc 34 % (30-34); Mean Corpuscular Hemoglobin 29 pg (28-32); Mean Corpuscular Volume 85 fl (79-97); Monocytes # (Auto) 1.3 K/mm3 (0.0-0.8); Monocytes % (Auto) 7.2 % (0.0-7.3); Platelet Count 359 K/mm3 (140-440); Red Blood Count 2.89 M/mm3 (3.65-5.03); Red Cell Distribution Width 17.5 % (13.2-15.2)
[2016-12-13 06:02] LABS: Calcium 9.3 mg/dL (8.4-10.2)
[2016-12-13] MEDS ORDERED: NACL 0.9% 100 ML IV PRN (09:18)
[2016-12-13] MEDS: ROBINUL PO SCH ×2 (09:48→21:03)
[2016-12-13] MEDS: HEPARIN SUB-Q SCH ×2 (09:48→21:04)
[2016-12-13] MEDS: PROTONIX FEEDTUBE SCH (09:48)
[2016-12-13] MEDS: NORVASC PO SCH (09:48)
--- NOTE | 2016-12-13 09:56 | Progress Note ---
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 appearance: Patient lying in bed, no apparent distress, 4. restraints HEENT: Normocephalic, atraumatic, pupils equally round and reactive to light, extraocular movement intact, and no sclericterus,. No JVD or thyromegaly or nodule,neck supple, no carotid bruit ,mucous membranes moist, unable to examine oral cavity Heart: S1, S2, regular rate and rhythm Lungs: Clear to auscultation bilaterally, breathing comfortable Abdomen: Positive bowel sounds, nontender, nondistended, no organomegaly Extremity: No edema, cyanosis, clubbing Skin: No rash, nodules, warm, dry Neuro: Difficult to assess, facial droop, moves all 4 extremities - Vital Signs Vital signs: Vital Signs - 12hr 12/12/16 12/12/16 12/12/16 22:00 22:39 23:00 Temperature 98.3 F Pulse Rate 96 H 90 Pulse Rate [ Anterior Bilateral Throughout] Pulse Rate [ From Monitor] Respiratory 32 H 30 H Rate Respiratory Rate [Anterior Bilateral Throughout] Blood Pressure 132/80 101/62 O2 Sat by Pulse 100 98 Oximetry O2 Sat by Pulse Oximetry [ Assessment] 12/12/16 12/12/16 12/12/16 23:03 23:07 23:30 Temperature Pulse Rate 90 90 Pulse Rate [ Anterior Bilateral Throughout] Pulse Rate [ From Monitor] Respiratory 14 21 Rate Respiratory Rate [Anterior Bilateral Throughout] Blood Pressure 101/62 109/65 O2 Sat by Pulse 98 98 Oximetry O2 Sat by Pulse 98 Oximetry [ Assessment] 12/12/16 12/13/16 12/13/16 23:52 00:00 01:00 Temperature Pulse Rate 91 H 94 H Pulse Rate [ Anterior Bilateral Throughout] Pulse Rate [ 90 From Monitor] Respiratory 29 H 35 H 36 H Rate Respiratory Rate [Anterior Bilateral Throughout] Blood Pressure 107/62 122/72 O2 Sat by Pulse 100 92 94 Oximetry O2 Sat by Pulse Oximetry [ Assessment] 12/13/16 12/13/16 12/13/16 02:00 03:00 03:16 Temperature 98.3 F Pulse Rate 95 H 99 H Pulse Rate [ 97 H Anterior Bilateral Throughout] Pulse Rate [ From Monitor] Respiratory 32 H 30 H Rate Respiratory 22 Rate [Anterior Bilateral Throughout] Blood Pressure 120/76 125/75 O2 Sat by Pulse 98 97 Oximetry O2 Sat by Pulse Oximetry [ Assessment] 12/13/16 12/13/16 12/13/16 04:00 04:40 05:00 Temperature Pulse Rate 99 H 97 H 98 H Pulse Rate [ Anterior Bilateral Throughout] Pulse Rate [ 97 H From Monitor] Respiratory 25 H 32 H 32 H Rate Respiratory Rate [Anterior Bilateral Throughout] Blood Pressure 117/75 117/75 117/79 O2 Sat by Pulse 100 98 98 Oximetry O2 Sat by Pulse Oximetry [ Assessment] 12/13/16 12/13/16 12/13/16 05:30 06:00 06:40 Temperature Pulse Rate 98 H 99 H Pulse Rate [ 96 H Anterior Bilateral Throughout] Pulse Rate [ From Monitor] Respiratory 28 H Rate Respiratory 20 Rate [Anterior Bilateral Throughout] Blood Pressure 117/79 125/82 O2 Sat by Pulse 99 Oximetry O2 Sat by Pulse Oximetry [ Assessment] 12/13/16 12/13/16 12/13/16 07:00 08:00 09:00 Temperature 98.2 F Pulse Rate 92 H 89 93 H Pulse Rate [ Anterior Bilateral Throughout] Pulse Rate [ 89 From Monitor] Respiratory 37 H 29 H 37 H Rate Respiratory Rate [Anterior Bilateral Throughout] Blood Pressure 107/69 109/69 121/73 O2 Sat by Pulse 99 98 98 Oximetry O2 Sat by Pulse 97 Oximetry [ Assessment] 12/13/16 12/13/16 09:17 09:48 Temperature Pulse Rate 98 H 93 H Pulse Rate [ Anterior Bilateral Throughout] Pulse Rate [ From Monitor] Respiratory 38 H Rate Respiratory Rate [Anterior Bilateral Throughout] Blood Pressure 121/73 121/73 O2 Sat by Pulse Oximetry O2 Sat by Pulse Oximetry [ Assessment] - Lab 12/13/16 04:00 12/13/16 04:00 Most recent lab results ABG pH 7.450 pH Units (7.350-7.450) 12/05/16 Unknown ABG pCO2 29.6 mm Hg 12/05/16 Unknown ABG pO2 75.2 mm Hg (80.0-90.0) L 12/05/16 Unknown ABG HCO3 20.1 mmol/L (20.0-26.0) 12/05/16 Unknown ABG O2 Saturation 96.8 % (95.0-99.0) 12/05/16 Unknown Calcium 9.3 mg/dL (8.4-10.2) 12/13/16 04:00 Phosphorus 3.60 mg/dL (2.5-4.5) D 12/12/16 Unknown Magnesium 1.90 mg/dL (1.7-2.3) 12/12/16 Unknown Urine Creatinine 19.7 mg/dL (0.1-20.0) 11/12/16 10:18 Urine Sodium 36 mEq/L 09/16/16 19:19 Urine Total Protein 16 mg/dL (5-11.8) H 09/16/16 19:19
--- NOTE | 2016-12-13 10:43 | Progress Note ---
Assessment and Plan Assessment and Plan 46-year-old woman with a history of hypertension, diabetes, asthma, hyperlipidemia, chronic kidney disease and anxiety , who was brought in by family because, she couldn't get her words out, her face was also twisted, she was admitted for acute CVA and accelerated hypertension, she had a hx of poor adherence with her medications, and uncontrolled htn. Patient's SBP on admission was noted be greater than 260. TPA was started but this was discontinued after 5 minutes because her blood pressure became uncontrolled. The TPA was not initiated again because the patient was outside the TPA window. Leukocytosis CT abdomen done post code to evaluate for worsening leukocytosis.... probable fistula sp R thoracentesis on 11/14, 240cc of serous fluid removed, cx of fluid was negative Intra abdominal fistula ID following -Severe Sepsis with septic shock, recurrent. Patient with multiple episodes of sepsis. Initial episode due to presumed aspiration pneumonia and septic episode on 09/23 from candidemia then a third episode from peritonitis from gastric perforation from dislodged PEG , there was an abscess in the abdomen present at that time that was draining pus. +/-UTI. Surgical wound infection/gram-negative sepsis/candidemia/peritonitis -TPN for nutritional support -Promotility agents today, monitor response. No further episodes of vomiting this morning -continue wound care to ostomy sites -Bowel regimen JUANITA, now ESRD Likely due to vasomotor nephropathy and ATN given sepsis Nephrology input appreciated Acute CVA with infarct. sp TPA Continue neuro checks. Neurology input appreciated, CT shows continued evolution of left MCA infarct with slight mass effect and edema, and there is no hemorrhage - PRINCE showed hyperdynamic with ef of 75%, neither clot nor septal defect seen - MRA Brain shows near complete occlusion of M2 and M3 of the left MCA - Repeat CT scan done on 09/11, shows stable findings - carotid doppler negative - Echo shows preserved systolic function but does show some left ventricular diastolic dysfunction - continue asa and statin for secondary ppx Paroxysmal atrial fibrillation. On Metoprolol Persistent vegetative state This patient's needs placement at either hospice or SNF -She was denied for LTACH Acute hypoxic respiratory failure requiring MV >96hrs Status post tracheostomy, back on full mechanical ventilatory support s/p PEA arrest with ROSC. VAP bundle addressed. Continue with daily SBTs as tolerated VTE prophylaxis Stress ulcer prophylaxis Aspiration precautions HOB>40 Nosocomial acquired aspiration pneumonia/sepsis/UTI She had completed a course of antibiotics. Being monitored off antibiotics Asthma/COPD exacerbation s/p trach Continue bronchodilators Acute Toxic Metabolic encephalopathy( improved). Multitifactorial, mostly secondary to evolution of CVA Hypertensive Emergency-stable Now on Metoprolol, Cozaar,Hydralazine, Clonidine patch. Bilateral pleural effusion, s/p right thoracentesis Paroxysmal atrial fibrillation with rapid ventricular rate, failed cardioversion Continue current medications, Not a candidate for anticoagulation secondary to anemia, thrombocytopenia, and massive CVA Hypokalemia/Hypomagnesemia/hypophosphatemia. Replete electrolytes as needed. Diabetes type 2. Continue sliding-scale regular insulin and Accu-Cheks. Hyperlipidemia. Continue statin Nutrition continue tube feeds Anemia requiring multiple transfusions/acute blood loss Has received total 13 units of PRBC this admission. Will continue to transfuse to keep Hemoglobin above 7 Her POA is her Brother, Jam [phone] Disposition. Very poor prognosis. - Patient Problems (1) Acute respiratory failure with hypoxia Current Visit: Yes Status: Acute (2) Acute blood loss anemia Current Visit: Yes Status: Resolved (3) Acute CVA (cerebrovascular accident) Current Visit: Yes Status: Acute (4) Chronic renal insufficiency Current Visit: Yes Status: Acute Qualifiers: Chronic kidney disease stage: C (5) Uncontrolled hypertension Current Visit: Yes Status: Acute (6) Leukocytosis (leucocytosis) Current Visit: Yes Status: Acute Qualifiers: Leukocytosis type: leukemoid reaction Qualified Code(s): D72.823 - Leukemoid reaction (7) Dislodged gastrostomy tube Current Visit: Yes Status: Acute Plan to address problem: With bowel perforation/peritonitis( resolved) Remains NPO except medications and on TPN for nutritional support. (8) Fungemia Current Visit: Yes Status: Resolved Subjective Date of service: 12/13/16 Principal diagnosis: Acute resp failure on MVS; S/P Acute CVA; Acute Encephalopathy; JUANITA Interval history: Seen and examined. Vitals, labs, medications, chart reviewed. On mechanical ventilatory support No further episodes of vomiting, no bowel movements Tolerating CPAP 12/5, tidal volumes of 300. Not tolerating T-piece trials Discussed in interdisciplinary rounds Objective - Exam Narrative Exam: Gen. appearance: Patient lying in bed, no apparent distress, s/p trach No patient-ventilator dysynchrony HEENT: Normocephalic, atraumatic, pupils equally round and reactive to light, extraocular movement intact, and no sclericterus,. No JVD or thyromegaly or nodule,neck supple, no carotid bruit ,unable to examine oral cavity Heart: S1, S2, regular rate and rhythm Lungs: Clear to auscultation bilaterally, breathing comfortable Abdomen: Positive bowel sounds, non-tender, non-distended, no organomegaly Fistula bags, minimal secretions Extremity: No edema, cyanosis, clubbing Skin: No rash, nodules, warm, dry Neuro:Not responsive Vital Signs - 12hr 12/12/16 12/12/16 12/12/16 23:00 23:03 23:07 Temperature Pulse Rate 90 90 Pulse Rate [ Anterior Bilateral Throughout] Pulse Rate [ From Monitor] Respiratory 30 H 14 Rate Respiratory Rate [Anterior Bilateral Throughout] Blood Pressure 101/62 101/62 O2 Sat by Pulse 98 98 Oximetry O2 Sat by Pulse 98 Oximetry [ Assessment] 12/12/16 12/12/16 12/13/16 23:30 23:52 00:00 Temperature Pulse Rate 90 91 H Pulse Rate [ Anterior Bilateral Throughout] Pulse Rate [ 90 From Monitor] Respiratory 21 29 H 35 H Rate Respiratory Rate [Anterior Bilateral Throughout] Blood Pressure 109/65 107/62 O2 Sat by Pulse 98 100 92 Oximetry O2 Sat by Pulse Oximetry [ Assessment] 12/13/16 12/13/16 12/13/16 01:00 02:00 03:00 Temperature Pulse Rate 94 H 95 H 99 H Pulse Rate [ 97 H Anterior Bilateral Throughout] Pulse Rate [ From Monitor] Respiratory 36 H 32 H 30 H Rate Respiratory 22 Rate [Anterior Bilateral Throughout] Blood Pressure 122/72 120/76 125/75 O2 Sat by Pulse 94 98 97 Oximetry O2 Sat by Pulse Oximetry [ Assessment] 12/13/16 12/13/16 12/13/16 03:16 04:00 04:40 Temperature 98.3 F Pulse Rate 99 H 97 H Pulse Rate [ Anterior Bilateral Throughout] Pulse Rate [ 97 H From Monitor] Respiratory 25 H 32 H Rate Respiratory Rate [Anterior Bilateral Throughout] Blood Pressure 117/75 117/75 O2 Sat by Pulse 100 98 Oximetry O2 Sat by Pulse Oximetry [ Assessment] 12/13/16 12/13/16 12/13/16 05:00 05:30 06:00 Temperature Pulse Rate 98 H 98 H 99 H Pulse Rate [ Anterior Bilateral Throughout] Pulse Rate [ From Monitor] Respiratory 32 H 28 H Rate Respiratory Rate [Anterior Bilateral Throughout] Blood Pressure 117/79 117/79 125/82 O2 Sat by Pulse 98 99 Oximetry O2 Sat by Pulse Oximetry [ Assessment] 12/13/16 12/13/16 12/13/16 06:40 07:00 08:00 Temperature 98.2 F Pulse Rate 92 H 89 Pulse Rate [ 96 H Anterior Bilateral Throughout] Pulse Rate [ 89 From Monitor] Respiratory 37 H 29 H Rate Respiratory 20 Rate [Anterior Bilateral Throughout] Blood Pressure 107/69 109/69 O2 Sat by Pulse 99 98 Oximetry O2 Sat by Pulse 97 Oximetry [ Assessment] 12/13/16 12/13/16 12/13/16 09:00 09:17 09:48 Temperature Pulse Rate 93 H 98 H 93 H Pulse Rate [ Anterior Bilateral Throughout] Pulse Rate [ From Monitor] Respiratory 37 H 38 H Rate Respiratory Rate [Anterior Bilateral Throughout] Blood Pressure 121/73 121/73 121/73 O2 Sat by Pulse 98 Oximetry O2 Sat by Pulse Oximetry [ Assessment] 12/13/16 10:00 Temperature Pulse Rate 93 H Pulse Rate [ Anterior Bilateral Throughout] Pulse Rate [ From Monitor] Respiratory 30 H Rate Respiratory Rate [Anterior Bilateral Throughout] Blood Pressure 111/73 O2 Sat by Pulse 98 Oximetry O2 Sat by Pulse Oximetry [ Assessment] Constitutional: appears uncomfortable, other (not tracking) Eyes: non-icteric, other (tracheostomy tube in midline of neck) ENT: oropharynx moist, oropharyngeal exudate pre Neck: supple, no lymphadenopathy, no JVD, other (no thyromegaly) Effort: mildly labored Ascultation: Left: diminished breath sounds (base), Bilateral: clear, rales, rhonchi (and referred upper airway sounds) Percussion: Left: dull (base), Bilateral: not dull Cardiovascular: regular rate and rhythm, other (no rubs / murmurs) Gastrointestinal: hypoactive bowel sounds, soft, non-tender, non-distended, other (RLQ & LUQ stomas with colostomy bags) Integumentary: other (no rash; no cellulitis; poor turgor) Extremities: no cyanosis, pulses normal, no ischemia or petechiae, edema (1+ bilaterally) Neurologic: pupils equal and round, unable to assess, other (encephalopathic) Psychiatric: other (unable to assess) CBC and BMP: 12/13/16 04:00 12/13/16 04:00 ABG, PT/INR, D-dimer: ABG POC ABG pH 7.487 (7.35-7.45) H 11/25/16 14:12 ABG pH 7.450 pH Units (7.350-7.450) 12/05/16 Unknown POC ABG pCO2 39.0 (35-45) 11/25/16 14:12 ABG pCO2 29.6 mm Hg 12/05/16 Unknown POC ABG pO2 153 (80-105) H 11/25/16 14:12 ABG pO2 75.2 mm Hg (80.0-90.0) L 12/05/16 Unknown POC ABG HCO3 29.5 11/25/16 14:12 POC ABG Total CO2 31 11/25/16 14:12 POC ABG O2 Sat 99 11/25/16 14:12 ABG O2 Saturation 96.8 % (95.0-99.0) 12/05/16 Unknown PT/INR, D-dimer PT 16.8 Sec. (12.2-14.9) H 11/17/16 03:20 INR 1.37 (0.87-1.13) H 11/17/16 03:20 Abnormal lab findings: Abnormal Labs 09/03/16 09/03/16 09/03/16 12:12 15:07 16:20 WBC RBC Hgb Hct MCV MCH MCHC RDW Plt Count Lymph % (Auto) [place] % (Auto) Lymph # [place] # Baso # Seg Neutrophils % Seg Neuts % (Manual) Lymphocytes % (Manual) Monocytes % (Manual) Eosinophils % (Manual) Basophils % (Manual) Nucleated RBC % Seg Neutrophils # Seg Neutrophils # Man Lymphocytes # (Manual) Monocytes # (Manual) Eosinophils # (Manual) PT INR Fibrinogen dRVVT Confirm Interp Factor V Activity POC ABG pH 7.452 H POC ABG pCO2 POC ABG pO2 ABG pO2 ABG HCO3 ABG Base Excess ABG Hemoglobin Oxyhemoglobin Sodium Potassium Chloride Carbon Dioxide BUN Creatinine Glucose POC Glucose 178 H Lactic Acid Calcium Phosphorus 2.20 L Magnesium 1.60 L Direct Bilirubin AST ALT Alkaline Phosphatase Lactate Dehydrogenase Troponin T C-Reactive Protein Total Protein Albumin Prealbumin Triglycerides Cholesterol LDL Cholesterol Direct HDL Cholesterol Urine pH Urine WBC (Auto) Urine Creatinine Urine Total Protein Fluid Total Protein Vancomycin Trough Rheumatoid Factor Complement C4 Miscellaneous Test Crossmatch 09/03/16 09/03/16 09/03/16 17:57 17:58 23:50 WBC RBC Hgb Hct MCV MCH MCHC RDW Plt Count Lymph % (Auto) [place] % (Auto) Lymph # [place] # Baso # Seg Neutrophils % Seg Neuts % (Manual) Lymphocytes % (Manual) Monocytes % (Manual) Eosinophils % (Manual) Basophils % (Manual) Nucleated RBC % Seg Neutrophils # Seg Neutrophils # Man Lymphocytes # (Manual) Monocytes # (Manual) Eosinophils # (Manual) PT INR Fibrinogen dRVVT Confirm Interp Factor V Activity POC ABG pH POC ABG pCO2 POC ABG pO2 ABG pO2 ABG HCO3 ABG Base Excess ABG Hemoglobin Oxyhemoglobin Sodium Potassium Chloride Carbon Dioxide BUN Creatinine Glucose POC Glucose 162 H 145 H Lactic Acid Calcium Phosphorus 2.30 L Magnesium Direct Bilirubin AST ALT Alkaline Phosphatase Lactate Dehydrogenase Troponin T C-Reactive Protein Total Protein Albumin Prealbumin Triglycerides Cholesterol LDL Cholesterol Direct HDL Cholesterol Urine pH Urine WBC (Auto) Urine Creatinine Urine Total Protein Fluid Total Protein Vancomycin Trough Rheumatoid Factor Complement C4 Miscellaneous Test Crossmatch 09/04/16 09/04/16 09/04/16 03:31 03:31 05:42 WBC RBC Hgb 9.7 L D Hct MCV 72 L MCH 23 L MCHC RDW 17.5 H Plt Count Lymph % (Auto) 11.1 L [place] % (Auto) Lymph # [place] # Baso # Seg Neutrophils % 84.3 H Seg Neuts % (Manual) Lymphocytes % (Manual) Monocytes % (Manual) Eosinophils % (Manual) Basophils % (Manual) Nucleated RBC % Seg Neutrophils # 8.9 H Seg Neutrophils # Man Lymphocytes # (Manual) Monocytes # (Manual) Eosinophils # (Manual) PT INR Fibrinogen dRVVT Confirm Interp Factor V Activity POC ABG pH POC ABG pCO2 POC ABG pO2 ABG pO2 ABG HCO3 ABG Base Excess ABG Hemoglobin Oxyhemoglobin Sodium 135 L Potassium 2.9 L* Chloride 97.2 L Carbon Dioxide 19 L BUN Creatinine 1.7 H Glucose 170 H POC Glucose 152 H Lactic Acid Calcium Phosphorus Magnesium Direct Bilirubin AST ALT Alkaline Phosphatase Lactate Dehydrogenase Troponin T C-Reactive Protein Total Protein Albumin Prealbumin Triglycerides 160 H Cholesterol LDL Cholesterol Direct HDL Cholesterol 31 L Urine pH Urine WBC (Auto) Urine Creatinine Urine Total Protein Fluid Total Protein Vancomycin Trough Rheumatoid Factor Complement C4 Miscellaneous Test Crossmatch 09/04/16 09/04/16 09/04/16 11:34 17:46 23:29 WBC RBC Hgb Hct MCV MCH MCHC RDW Plt Count Lymph % (Auto) [place] % (Auto) Lymph # [place] # Baso # Seg Neutrophils % Seg Neuts % (Manual) Lymphocytes % (Manual) Monocytes % (Manual) Eosinophils % (Manual) Basophils % (Manual) Nucleated RBC % Seg Neutrophils # Seg Neutrophils # Man Lymphocytes # (Manual) Monocytes # (Manual) Eosinophils # (Manual) PT INR Fibrinogen dRVVT Confirm Interp Factor V Activity POC ABG pH POC ABG pCO2 POC ABG pO2 ABG pO2 ABG HCO3 ABG Base Excess ABG Hemoglobin Oxyhemoglobin Sodium Potassium Chloride Carbon Dioxide BUN Creatinine Glucose POC Glucose 165 H 210 H 139 H Lactic Acid Calcium Phosphorus Magnesium Direct Bilirubin AST ALT Alkaline Phosphatase Lactate Dehydrogenase Troponin T C-Reactive Protein Total Protein Albumin Prealbumin Triglycerides Cholesterol LDL Cholesterol Direct HDL Cholesterol Urine pH Urine WBC (Auto) Urine Creatinine Urine Total Protein Fluid Total Protein Vancomycin Trough Rheumatoid Factor Complement C4 Miscellaneous Test Crossmatch 09/05/16 09/05/16 09/05/16 04:05 04:05 05:38 WBC RBC Hgb Hct MCV 76 L D MCH 23 L MCHC RDW 17.8 H Plt Count Lymph % (Auto) [place] % (Auto) Lymph # [place] # Baso # Seg Neutrophils % Seg Neuts % (Manual) Lymphocytes % (Manual) Monocytes % (Manual) Eosinophils % (Manual) Basophils % (Manual) Nucleated RBC % Seg Neutrophils # Seg Neutrophils # Man Lymphocytes # (Manual) Monocytes # (Manual) Eosinophils # (Manual) PT INR Fibrinogen dRVVT Confirm Interp Factor V Activity POC ABG pH POC ABG pCO2 POC ABG pO2 ABG pO2 ABG HCO3 ABG Base Excess ABG Hemoglobin Oxyhemoglobin Sodium 134 L Potassium Chloride Carbon Dioxide 18 L BUN Creatinine 1.8 H Glucose 192 H POC Glucose 175 H Lactic Acid Calcium Phosphorus Magnesium Direct Bilirubin AST ALT Alkaline Phosphatase Lactate Dehydrogenase Troponin T C-Reactive Protein Total Protein Albumin Prealbumin Triglycerides Cholesterol LDL Cholesterol Direct HDL Cholesterol Urine pH Urine WBC (Auto) Urine Creatinine Urine Total Protein Fluid Total Protein Vancomycin Trough Rheumatoid Factor Complement C4 Miscellaneous Test Crossmatch 07/09/05/16 09/05/16 11:38 17:48 23:22 WBC RBC Hgb Hct MCV MCH MCHC RDW Plt Count Lymph % (Auto) [place] % (Auto) Lymph # [place] # Baso # Seg Neutrophils % Seg Neuts % (Manual) Lymphocytes % (Manual) Monocytes % (Manual) Eosinophils % (Manual) Basophils % (Manual) Nucleated RBC % Seg Neutrophils # Seg Neutrophils # Man Lymphocytes # (Manual) Monocytes # (Manual) Eosinophils # (Manual) PT INR Fibrinogen dRVVT Confirm Interp Factor V Activity POC ABG pH POC ABG pCO2 POC ABG pO2 ABG pO2 ABG HCO3 ABG Base Excess ABG Hemoglobin Oxyhemoglobin Sodium Potassium Chloride Carbon Dioxide BUN Creatinine Glucose POC Glucose 164 H 186 H 195 H Lactic Acid Calcium Phosphorus Magnesium Direct Bilirubin AST ALT Alkaline Phosphatase Lactate Dehydrogenase Troponin T C-Reactive Protein Total Protein Albumin Prealbumin Triglycerides Cholesterol LDL Cholesterol Direct HDL Cholesterol Urine pH Urine WBC (Auto) Urine Creatinine Urine Total Protein Fluid Total Protein Vancomycin Trough Rheumatoid Factor Complement C4 Miscellaneous Test Crossmatch 09/06/16 09/06/16 09/06/16 04:12 05:59 07:32 WBC RBC Hgb Hct MCV MCH MCHC RDW Plt Count Lymph % (Auto) [place] % (Auto) Lymph # [place] # Baso # Seg Neutrophils % Seg Neuts % (Manual) Lymphocytes % (Manual) Monocytes % (Manual) Eosinophils % (Manual) Basophils % (Manual) Nucleated RBC % Seg Neutrophils # Seg Neutrophils # Man Lymphocytes # (Manual) Monocytes # (Manual) Eosinophils # (Manual) PT INR Fibrinogen dRVVT Confirm Interp Factor V Activity POC ABG pH 7.514 H POC ABG pCO2 29.1 L POC ABG pO2 72 L ABG pO2 ABG HCO3 ABG Base Excess ABG Hemoglobin Oxyhemoglobin Sodium 133 L Potassium 3.4 L Chloride 94.9 L Carbon Dioxide 19 L BUN 30 H Creatinine 2.1 H Glucose 139 H POC Glucose 146 H Lactic Acid Calcium Phosphorus Magnesium Direct Bilirubin AST ALT Alkaline Phosphatase Lactate Dehydrogenase Troponin T C-Reactive Protein Total Protein Albumin Prealbumin Triglycerides Cholesterol LDL Cholesterol Direct HDL Cholesterol Urine pH Urine WBC (Auto) Urine Creatinine Urine Total Protein Fluid Total Protein Vancomycin Trough Rheumatoid Factor Complement C4 Miscellaneous Test Crossmatch 09/06/16 09/06/16 09/06/16 11:57 17:58 19:02 WBC RBC Hgb Hct MCV MCH MCHC RDW Plt Count Lymph % (Auto) [place] % (Auto) Lymph # [place] # Baso # Seg Neutrophils % Seg Neuts % (Manual) Lymphocytes % (Manual) Monocytes % (Manual) Eosinophils % (Manual) Basophils % (Manual) Nucleated RBC % Seg Neutrophils # Seg Neutrophils # Man Lymphocytes # (Manual) Monocytes # (Manual) Eosinophils # (Manual) PT INR Fibrinogen dRVVT Confirm Interp Factor V Activity POC ABG pH 7.465 H POC ABG pCO2 32.0 L POC ABG pO2 ABG pO2 ABG HCO3 ABG Base Excess ABG Hemoglobin Oxyhemoglobin Sodium Potassium Chloride Carbon Dioxide BUN Creatinine Glucose POC Glucose 165 H 160 H Lactic Acid Calcium Phosphorus Magnesium Direct Bilirubin AST ALT Alkaline Phosphatase Lactate Dehydrogenase Troponin T C-Reactive Protein Total Protein Albumin Prealbumin Triglycerides Cholesterol LDL Cholesterol Direct HDL Cholesterol Urine pH Urine WBC (Auto) Urine Creatinine Urine Total Protein Fluid Total Protein Vancomycin Trough Rheumatoid Factor Complement C4 Miscellaneous Test Crossmatch 09/06/16 09/07/16 09/07/16 23:45 02:47 02:47 WBC RBC Hgb Hct MCV MCH MCHC RDW Plt Count Lymph % (Auto) [place] % (Auto) Lymph # [place] # Baso # Seg Neutrophils % Seg Neuts % (Manual) Lymphocytes % (Manual) Monocytes % (Manual) Eosinophils % (Manual) Basophils % (Manual) Nucleated RBC % Seg Neutrophils # Seg Neutrophils # Man Lymphocytes # (Manual) Monocytes # (Manual) Eosinophils # (Manual) PT INR Fibrinogen dRVVT Confirm Interp Factor V Activity POC ABG pH POC ABG pCO2 POC ABG pO2 ABG pO2 ABG HCO3 ABG Base Excess ABG Hemoglobin Oxyhemoglobin Sodium Potassium Chloride Carbon Dioxide BUN Creatinine Glucose POC Glucose 204 H Lactic Acid Calcium Phosphorus Magnesium Direct Bilirubin AST ALT Alkaline Phosphatase Lactate Dehydrogenase Troponin T C-Reactive Protein Total Protein Albumin Prealbumin Triglycerides Cholesterol LDL Cholesterol Direct HDL Cholesterol Urine pH Urine WBC (Auto) 68.0 H Urine Creatinine 106.1 H Urine Total Protein Fluid Total Protein Vancomycin Trough Rheumatoid Factor Complement C4 Miscellaneous Test Crossmatch 09/07/16 09/07/16 09/07/16 04:50 06:19 06:39 WBC RBC Hgb Hct MCV MCH MCHC RDW Plt Count Lymph % (Auto) [place] % (Auto) Lymph # [place] # Baso # Seg Neutrophils % Seg Neuts % (Manual) Lymphocytes % (Manual) Monocytes % (Manual) Eosinophils % (Manual) Basophils % (Manual) Nucleated RBC % Seg Neutrophils # Seg Neutrophils # Man Lymphocytes # (Manual) Monocytes # (Manual) Eosinophils # (Manual) PT INR Fibrinogen dRVVT Confirm Interp Factor V Activity POC ABG pH 7.457 H POC ABG pCO2 32.1 L POC ABG pO2 76 L ABG pO2 ABG HCO3 ABG Base Excess ABG Hemoglobin Oxyhemoglobin Sodium 132 L Potassium Chloride 94.7 L Carbon Dioxide BUN 53 H Creatinine 2.9 H Glucose 151 H POC Glucose 149 H Lactic Acid Calcium Phosphorus Magnesium Direct Bilirubin AST ALT Alkaline Phosphatase Lactate Dehydrogenase Troponin T C-Reactive Protein Total Protein Albumin Prealbumin Triglycerides Cholesterol LDL Cholesterol Direct HDL Cholesterol Urine pH Urine WBC (Auto) Urine Creatinine Urine Total Protein Fluid Total Protein Vancomycin Trough Rheumatoid Factor Complement C4 Miscellaneous Test Crossmatch 09/07/16 09/07/16 09/07/16 09:20 11:43 11:43 WBC 19.4 H RBC Hgb 8.3 L Hct 26.4 L D MCV 72 L D MCH 22 L MCHC RDW 17.9 H Plt Count Lymph % (Auto) 8.5 L [place] % (Auto) Lymph # [place] # 1.0 H Baso # Seg Neutrophils % 85.8 H Seg Neuts % (Manual) Lymphocytes % (Manual) Monocytes % (Manual) Eosinophils % (Manual) Basophils % (Manual) Nucleated RBC % Seg Neutrophils # 16.6 H Seg Neutrophils # Man Lymphocytes # (Manual) Monocytes # (Manual) Eosinophils # (Manual) PT INR Fibrinogen dRVVT Confirm Interp Factor V Activity POC ABG pH POC ABG pCO2 POC ABG pO2 ABG pO2 ABG HCO3 ABG Base Excess ABG Hemoglobin Oxyhemoglobin Sodium 134 L Potassium Chloride 97.2 L Carbon Dioxide 20 L BUN 58 H Creatinine 2.9 H Glucose 147 H POC Glucose Lactic Acid Calcium Phosphorus 2.40 L Magnesium 2.40 H Direct Bilirubin AST ALT Alkaline Phosphatase Lactate Dehydrogenase Troponin T C-Reactive Protein Total Protein 5.8 L Albumin 2.2 L Prealbumin Triglycerides Cholesterol LDL Cholesterol Direct HDL Cholesterol Urine pH Urine WBC (Auto) Urine Creatinine Urine Total Protein Fluid Total Protein Vancomycin Trough Rheumatoid Factor Complement C4 58 H Miscellaneous Test Crossmatch 09/07/16 09/07/16 09/07/16 11:50 16:00 17:31 WBC RBC Hgb Hct MCV MCH MCHC RDW Plt Count Lymph % (Auto) [place] % (Auto) Lymph # [place] # Baso # Seg Neutrophils % Seg Neuts % (Manual) Lymphocytes % (Manual) Monocytes % (Manual) Eosinophils % (Manual) Basophils % (Manual) Nucleated RBC % Seg Neutrophils # Seg Neutrophils # Man Lymphocytes # (Manual) Monocytes # (Manual) Eosinophils # (Manual) PT INR Fibrinogen dRVVT Confirm Interp Factor V Activity POC ABG pH POC ABG pCO2 POC ABG pO2 158 H ABG pO2 ABG HCO3 ABG Base Excess ABG Hemoglobin Oxyhemoglobin Sodium Potassium Chloride Carbon Dioxide BUN Creatinine Glucose POC Glucose 175 H Lactic Acid Calcium Phosphorus Magnesium Direct Bilirubin AST ALT Alkaline Phosphatase Lactate Dehydrogenase Troponin T C-Reactive Protein Total Protein Albumin Prealbumin Triglycerides Cholesterol LDL Cholesterol Direct HDL Cholesterol Urine pH Urine WBC (Auto) Urine Creatinine 66.3 H Urine Total Protein Fluid Total Protein Vancomycin Trough Rheumatoid Factor Complement C4 Miscellaneous Test Crossmatch 09/07/16 09/08/16 09/08/16 23:50 05:46 06:18 WBC 17.8 H RBC 3.58 L Hgb 8.1 L Hct 25.5 L MCV 71 L MCH 23 L MCHC RDW 18.4 H Plt Count Lymph % (Auto) [place] % (Auto) Lymph # [place] # Baso # Seg Neutrophils % Seg Neuts % (Manual) 92.0 H Lymphocytes % (Manual) 6.0 L Monocytes % (Manual) Eosinophils % (Manual) Basophils % (Manual) Nucleated RBC % Seg Neutrophils # Seg Neutrophils # Man 16.4 H Lymphocytes # (Manual) 1.1 L Monocytes # (Manual) Eosinophils # (Manual) PT INR Fibrinogen dRVVT Confirm Interp Factor V Activity POC ABG pH POC ABG pCO2 34.3 L POC ABG pO2 71 L ABG pO2 ABG HCO3 ABG Base Excess ABG Hemoglobin Oxyhemoglobin Sodium Potassium Chloride Carbon Dioxide BUN Creatinine Glucose POC Glucose 216 H Lactic Acid Calcium Phosphorus Magnesium Direct Bilirubin AST ALT Alkaline Phosphatase Lactate Dehydrogenase Troponin T C-Reactive Protein Total Protein Albumin Prealbumin Triglycerides Cholesterol LDL Cholesterol Direct HDL Cholesterol Urine pH Urine WBC (Auto) Urine Creatinine Urine Total Protein Fluid Total Protein Vancomycin Trough Rheumatoid Factor Complement C4 Miscellaneous Test Crossmatch 09/08/16 09/08/16 09/08/16 06:18 06:51 10:55 WBC RBC Hgb Hct MCV MCH MCHC RDW Plt Count Lymph % (Auto) [place] % (Auto) Lymph # [place] # Baso # Seg Neutrophils % Seg Neuts % (Manual) Lymphocytes % (Manual) Monocytes % (Manual) Eosinophils % (Manual) Basophils % (Manual) Nucleated RBC % Seg Neutrophils # Seg Neutrophils # Man Lymphocytes # (Manual) Monocytes # (Manual) Eosinophils # (Manual) PT INR Fibrinogen dRVVT Confirm Interp Factor V Activity POC ABG pH POC ABG pCO2 POC ABG pO2 ABG pO2 ABG HCO3 ABG Base Excess ABG Hemoglobin Oxyhemoglobin Sodium 133 L Potassium Chloride 96.9 L Carbon Dioxide 20 L BUN 63 H Creatinine 2.7 H Glucose 195 H POC Glucose 204 H 169 H Lactic Acid Calcium Phosphorus Magnesium Direct Bilirubin AST ALT Alkaline Phosphatase Lactate Dehydrogenase Troponin T C-Reactive Protein Total Protein Albumin Prealbumin Triglycerides Cholesterol LDL Cholesterol Direct HDL Cholesterol Urine pH Urine WBC (Auto) Urine Creatinine Urine Total Protein Fluid Total Protein Vancomycin Trough Rheumatoid Factor Complement C4 Miscellaneous Test Crossmatch 09/08/16 09/08/16 09/08/16 11:48 11:48 11:48 WBC RBC Hgb Hct MCV MCH MCHC RDW Plt Count Lymph % (Auto) [place] % (Auto) Lymph # [place] # Baso # Seg Neutrophils % Seg Neuts % (Manual) Lymphocytes % (Manual) Monocytes % (Manual) Eosinophils % (Manual) Basophils % (Manual) Nucleated RBC % Seg Neutrophils # Seg Neutrophils # Man Lymphocytes # (Manual) Monocytes # (Manual) Eosinophils # (Manual) PT INR Fibrinogen 750 H dRVVT Confirm Interp Factor V Activity POC ABG pH POC ABG pCO2 POC ABG pO2 ABG pO2 ABG HCO3 ABG Base Excess ABG Hemoglobin Oxyhemoglobin Sodium Potassium Chloride Carbon Dioxide BUN Creatinine Glucose POC Glucose Lactic Acid Calcium Phosphorus Magnesium Direct Bilirubin AST ALT Alkaline Phosphatase Lactate Dehydrogenase Troponin T C-Reactive Protein 15.70 H Total Protein Albumin Prealbumin Triglycerides Cholesterol LDL Cholesterol Direct HDL Cholesterol Urine pH Urine WBC (Auto) Urine Creatinine Urine Total Protein Fluid Total Protein Vancomycin Trough Rheumatoid Factor 24 H Complement C4 Miscellaneous Test Crossmatch 09/08/16 09/08/16 09/09/16 15:35 18:25 00:24 WBC RBC Hgb Hct MCV MCH MCHC RDW Plt Count Lymph % (Auto) [place] % (Auto) Lymph # [place] # Baso # Seg Neutrophils % Seg Neuts % (Manual) Lymphocytes % (Manual) Monocytes % (Manual) Eosinophils % (Manual) Basophils % (Manual) Nucleated RBC % Seg Neutrophils # Seg Neutrophils # Man Lymphocytes # (Manual) Monocytes # (Manual) Eosinophils # (Manual) PT INR Fibrinogen dRVVT Confirm Interp Factor V Activity 182 H POC ABG pH POC ABG pCO2 POC ABG pO2 ABG pO2 ABG HCO3 ABG Base Excess ABG Hemoglobin Oxyhemoglobin Sodium Potassium Chloride Carbon Dioxide BUN Creatinine Glucose POC Glucose 184 H 216 H Lactic Acid Calcium Phosphorus Magnesium Direct Bilirubin AST ALT Alkaline Phosphatase Lactate Dehydrogenase Troponin T C-Reactive Protein Total Protein Albumin Prealbumin Triglycerides Cholesterol LDL Cholesterol Direct HDL Cholesterol Urine pH Urine WBC (Auto) Urine Creatinine Urine Total Protein Fluid Total Protein Vancomycin Trough Rheumatoid Factor Complement C4 Miscellaneous Test Crossmatch 09/09/16 09/09/16 09/09/16 03:00 03:00 04:04 WBC 27.9 H RBC Hgb 8.7 L Hct 28.1 L MCV 72 L MCH 22 L MCHC RDW 18.4 H Plt Count 485 H Lymph % (Auto) [place] % (Auto) Lymph # [place] # Baso # Seg Neutrophils % Seg Neuts % (Manual) 77.0 H Lymphocytes % (Manual) 9.0 L Monocytes % (Manual) Eosinophils % (Manual) Basophils % (Manual) Nucleated RBC % Seg Neutrophils # Seg Neutrophils # Man 21.5 H Lymphocytes # (Manual) Monocytes # (Manual) 2.0 H Eosinophils # (Manual) PT INR Fibrinogen dRVVT Confirm Interp Factor V Activity POC ABG pH POC ABG pCO2 POC ABG pO2 121 H ABG pO2 ABG HCO3 ABG Base Excess ABG Hemoglobin Oxyhemoglobin Sodium 135 L Potassium Chloride 96.3 L Carbon Dioxide 21 L BUN 83 H Creatinine 3.0 H Glucose 135 H POC Glucose Lactic Acid Calcium Phosphorus Magnesium Direct Bilirubin AST ALT Alkaline Phosphatase Lactate Dehydrogenase Troponin T C-Reactive Protein Total Protein Albumin Prealbumin Triglycerides Cholesterol LDL Cholesterol Direct HDL Cholesterol Urine pH Urine WBC (Auto) Urine Creatinine Urine Total Protein Fluid Total Protein Vancomycin Trough Rheumatoid Factor Complement C4 Miscellaneous Test Crossmatch 09/09/16 09/09/16 09/09/16 05:41 11:55 14:13 WBC RBC Hgb Hct MCV MCH MCHC RDW Plt Count Lymph % (Auto) [place] % (Auto) Lymph # [place] # Baso # Seg Neutrophils % Seg Neuts % (Manual) Lymphocytes % (Manual) Monocytes % (Manual) Eosinophils % (Manual) Basophils % (Manual) Nucleated RBC % Seg Neutrophils # Seg Neutrophils # Man Lymphocytes # (Manual) Monocytes # (Manual) Eosinophils # (Manual) PT INR Fibrinogen dRVVT Confirm Interp Factor V Activity POC ABG pH POC ABG pCO2 POC ABG pO2 ABG pO2 ABG HCO3 ABG Base Excess ABG Hemoglobin Oxyhemoglobin Sodium Potassium Chloride Carbon Dioxide BUN Creatinine Glucose POC Glucose 155 H 186 H Lactic Acid Calcium Phosphorus Magnesium Direct Bilirubin AST ALT Alkaline Phosphatase Lactate Dehydrogenase Troponin T C-Reactive Protein Total Protein Albumin Prealbumin Triglycerides Cholesterol LDL Cholesterol Direct HDL Cholesterol Urine pH Urine WBC (Auto) 25.0 H Urine Creatinine Urine Total Protein Fluid Total Protein Vancomycin Trough Rheumatoid Factor Complement C4 Miscellaneous Test Crossmatch 09/09/16 09/09/16 09/10/16 17:33 23:13 05:09 WBC RBC Hgb Hct MCV MCH MCHC RDW Plt Count Lymph % (Auto) [place] % (Auto) Lymph # [place] # Baso # Seg Neutrophils % Seg Neuts % (Manual) Lymphocytes % (Manual) Monocytes % (Manual) Eosinophils % (Manual) Basophils % (Manual) Nucleated RBC % Seg Neutrophils # Seg Neutrophils # Man Lymphocytes # (Manual) Monocytes # (Manual) Eosinophils # (Manual) PT INR Fibrinogen dRVVT Confirm Interp Factor V Activity POC ABG pH POC ABG pCO2 POC ABG pO2 74 L ABG pO2 ABG HCO3 ABG Base Excess ABG Hemoglobin Oxyhemoglobin Sodium Potassium Chloride Carbon Dioxide BUN Creatinine Glucose POC Glucose 211 H 215 H Lactic Acid Calcium Phosphorus Magnesium Direct Bilirubin AST ALT Alkaline Phosphatase Lactate Dehydrogenase Troponin T C-Reactive Protein Total Protein Albumin Prealbumin Triglycerides Cholesterol LDL Cholesterol Direct HDL Cholesterol Urine pH Urine WBC (Auto) Urine Creatinine Urine Total Protein Fluid Total Protein Vancomycin Trough Rheumatoid Factor Complement C4 Miscellaneous Test Crossmatch 09/10/16 09/10/16 09/10/16 05:17 05:17 11:31 WBC 15.8 H RBC 3.25 L Hgb 7.3 L Hct 22.9 L MCV 71 L MCH 23 L MCHC RDW 18.4 H Plt Count Lymph % (Auto) [place] % (Auto) Lymph # [place] # Baso # Seg Neutrophils % Seg Neuts % (Manual) 91.0 H Lymphocytes % (Manual) 4.0 L Monocytes % (Manual) Eosinophils % (Manual) Basophils % (Manual) Nucleated RBC % Seg Neutrophils # Seg Neutrophils # Man 14.4 H Lymphocytes # (Manual) 0.6 L Monocytes # (Manual) Eosinophils # (Manual) PT INR Fibrinogen dRVVT Confirm Interp Factor V Activity POC ABG pH POC ABG pCO2 POC ABG pO2 ABG pO2 ABG HCO3 ABG Base Excess ABG Hemoglobin Oxyhemoglobin Sodium Potassium Chloride Carbon Dioxide 21 L BUN 93 H Creatinine 2.9 H Glucose 146 H POC Glucose 188 H Lactic Acid Calcium 8.1 L Phosphorus Magnesium Direct Bilirubin AST ALT Alkaline Phosphatase Lactate Dehydrogenase Troponin T C-Reactive Protein Total Protein Albumin Prealbumin Triglycerides Cholesterol LDL Cholesterol Direct HDL Cholesterol Urine pH Urine WBC (Auto) Urine Creatinine Urine Total Protein Fluid Total Protein Vancomycin Trough Rheumatoid Factor Complement C4 Miscellaneous Test Crossmatch 09/10/16 09/10/16 09/10/16 13:17 17:20 23:32 WBC RBC Hgb Hct MCV MCH MCHC RDW Plt Count Lymph % (Auto) [place] % (Auto) Lymph # [place] # Baso # Seg Neutrophils % Seg Neuts % (Manual) Lymphocytes % (Manual) Monocytes % (Manual) Eosinophils % (Manual) Basophils % (Manual) Nucleated RBC % Seg Neutrophils # Seg Neutrophils # Man Lymphocytes # (Manual) Monocytes # (Manual) Eosinophils # (Manual) PT INR Fibrinogen dRVVT Confirm Interp Factor V Activity POC ABG pH POC ABG pCO2 POC ABG pO2 ABG pO2 ABG HCO3 ABG Base Excess ABG Hemoglobin Oxyhemoglobin Sodium Potassium Chloride Carbon Dioxide BUN Creatinine Glucose POC Glucose 199 H 186 H Lactic Acid Calcium Phosphorus Magnesium Direct Bilirubin AST ALT Alkaline Phosphatase Lactate Dehydrogenase Troponin T C-Reactive Protein Total Protein Albumin Prealbumin Triglycerides Cholesterol LDL Cholesterol Direct HDL Cholesterol Urine pH Urine WBC (Auto) Urine Creatinine Urine Total Protein Fluid Total Protein Vancomycin Trough Rheumatoid Factor Complement C4 Miscellaneous Test Crossmatch See Detail 09/11/16 09/11/16 09/11/16 05:10 05:10 05:17 WBC 28.4 H RBC Hgb 9.2 L Hct 29.3 L D MCV 73 L MCH 23 L MCHC RDW 18.9 H Plt Count 452 H Lymph % (Auto) [place] % (Auto) Lymph # [place] # Baso # Seg Neutrophils % Seg Neuts % (Manual) 89.5 H Lymphocytes % (Manual) 2.0 L Monocytes % (Manual) Eosinophils % (Manual) Basophils % (Manual) Nucleated RBC % Seg Neutrophils # Seg Neutrophils # Man 25.4 H Lymphocytes # (Manual) 0.6 L Monocytes # (Manual) 1.3 H Eosinophils # (Manual) PT INR Fibrinogen dRVVT Confirm Interp Factor V Activity POC ABG pH POC ABG pCO2 POC ABG pO2 ABG pO2 ABG HCO3 ABG Base Excess ABG Hemoglobin Oxyhemoglobin Sodium 136 L Potassium Chloride Carbon Dioxide 18 L BUN 107 H Creatinine 2.6 H Glucose 187 H POC Glucose 230 H Lactic Acid Calcium 8.3 L Phosphorus Magnesium Direct Bilirubin AST ALT Alkaline Phosphatase Lactate Dehydrogenase Troponin T C-Reactive Protein Total Protein Albumin Prealbumin Triglycerides Cholesterol LDL Cholesterol Direct HDL Cholesterol Urine pH Urine WBC (Auto) Urine Creatinine Urine Total Protein Fluid Total Protein Vancomycin Trough Rheumatoid Factor Complement C4 Miscellaneous Test Crossmatch 09/11/16 09/11/16 09/11/16 05:55 12:02 17:32 WBC RBC Hgb Hct MCV MCH MCHC RDW Plt Count Lymph % (Auto) [place] % (Auto) Lymph # [place] # Baso # Seg Neutrophils % Seg Neuts % (Manual) Lymphocytes % (Manual) Monocytes % (Manual) Eosinophils % (Manual) Basophils % (Manual) Nucleated RBC % Seg Neutrophils # Seg Neutrophils # Man Lymphocytes # (Manual) Monocytes # (Manual) Eosinophils # (Manual) PT INR Fibrinogen dRVVT Confirm Interp Factor V Activity POC ABG pH POC ABG pCO2 33.8 L POC ABG pO2 ABG pO2 ABG HCO3 ABG Base Excess ABG Hemoglobin Oxyhemoglobin Sodium Potassium Chloride Carbon Dioxide BUN Creatinine Glucose POC Glucose 191 H 239 H Lactic Acid Calcium Phosphorus Magnesium Direct Bilirubin AST ALT Alkaline Phosphatase Lactate Dehydrogenase Troponin T C-Reactive Protein Total Protein Albumin Prealbumin Triglycerides Cholesterol LDL Cholesterol Direct HDL Cholesterol Urine pH Urine WBC (Auto) Urine Creatinine Urine Total Protein Fluid Total Protein Vancomycin Trough Rheumatoid Factor Complement C4 Miscellaneous Test Crossmatch 09/11/16 09/12/16 09/12/16 23:52 05:09 05:32 WBC RBC Hgb Hct MCV MCH MCHC RDW Plt Count Lymph % (Auto) [place] % (Auto) Lymph # [place] # Baso # Seg Neutrophils % Seg Neuts % (Manual) Lymphocytes % (Manual) Monocytes % (Manual) Eosinophils % (Manual) Basophils % (Manual) Nucleated RBC % Seg Neutrophils # Seg Neutrophils # Man Lymphocytes # (Manual) Monocytes # (Manual) Eosinophils # (Manual) PT INR Fibrinogen dRVVT Confirm Interp Factor V Activity POC ABG pH POC ABG pCO2 34.6 L POC ABG pO2 ABG pO2 ABG HCO3 ABG Base Excess ABG Hemoglobin Oxyhemoglobin Sodium Potassium Chloride Carbon Dioxide BUN Creatinine Glucose POC Glucose 265 H 184 H Lactic Acid Calcium Phosphorus Magnesium Direct Bilirubin AST ALT Alkaline Phosphatase Lactate Dehydrogenase Troponin T C-Reactive Protein Total Protein Albumin Prealbumin Triglycerides Cholesterol LDL Cholesterol Direct HDL Cholesterol Urine pH Urine WBC (Auto) Urine Creatinine Urine Total Protein Fluid Total Protein Vancomycin Trough Rheumatoid Factor Complement C4 Miscellaneous Test Crossmatch 09/12/16 09/12/16 09/12/16 06:45 06:45 07:22 WBC 31.7 H RBC 3.54 L Hgb 8.3 L Hct 25.9 L MCV 73 L MCH 23 L MCHC RDW 18.9 H Plt Count Lymph % (Auto) [place] % (Auto) Lymph # [place] # Baso # Seg Neutrophils % Seg Neuts % (Manual) 88.5 H Lymphocytes % (Manual) 4.5 L Monocytes % (Manual) Eosinophils % (Manual) Basophils % (Manual) Nucleated RBC % Seg Neutrophils # Seg Neutrophils # Man 28.1 H Lymphocytes # (Manual) Monocytes # (Manual) 1.0 H Eosinophils # (Manual) PT INR Fibrinogen dRVVT Confirm Interp Factor V Activity POC ABG pH POC ABG pCO2 POC ABG pO2 ABG pO2 ABG HCO3 ABG Base Excess ABG Hemoglobin Oxyhemoglobin Sodium Potassium Chloride Carbon Dioxide 20 L BUN 115 H Creatinine 2.7 H Glucose 165 H POC Glucose Lactic Acid Calcium 8.0 L Phosphorus Magnesium Direct Bilirubin AST ALT Alkaline Phosphatase Lactate Dehydrogenase Troponin T C-Reactive Protein Total Protein Albumin Prealbumin Triglycerides 217 H Cholesterol LDL Cholesterol Direct HDL Cholesterol Urine pH Urine WBC (Auto) Urine Creatinine Urine Total Protein Fluid Total Protein Vancomycin Trough Rheumatoid Factor Complement C4 Miscellaneous Test Crossmatch 09/12/16 09/12/16 09/12/16 07:22 09:59 12:21 WBC RBC Hgb Hct MCV MCH MCHC RDW Plt Count Lymph % (Auto) [place] % (Auto) Lymph # [place] # Baso # Seg Neutrophils % Seg Neuts % (Manual) Lymphocytes % (Manual) Monocytes % (Manual) Eosinophils % (Manual) Basophils % (Manual) Nucleated RBC % Seg Neutrophils # Seg Neutrophils # Man Lymphocytes # (Manual) Monocytes # (Manual) Eosinophils # (Manual) PT INR Fibrinogen dRVVT Confirm Interp Positive H Factor V Activity POC ABG pH POC ABG pCO2 POC ABG pO2 ABG pO2 ABG HCO3 ABG Base Excess ABG Hemoglobin Oxyhemoglobin Sodium Potassium Chloride Carbon Dioxide BUN Creatinine Glucose POC Glucose 224 H Lactic Acid Calcium Phosphorus Magnesium Direct Bilirubin AST ALT Alkaline Phosphatase Lactate Dehydrogenase Troponin T C-Reactive Protein 1.70 H Total Protein Albumin Prealbumin Triglycerides Cholesterol LDL Cholesterol Direct HDL Cholesterol Urine pH Urine WBC (Auto) Urine Creatinine Urine Total Protein Fluid Total Protein Vancomycin Trough Rheumatoid Factor Complement C4 Miscellaneous Test Crossmatch 09/12/16 09/12/16 09/13/16 16:51 23:28 04:00 WBC 45.0 H* RBC Hgb 9.4 L Hct MCV 75 L MCH 23 L MCHC RDW 19.0 H Plt Count 470 H Lymph % (Auto) [place] % (Auto) Lymph # [place] # Baso # Seg Neutrophils % Seg Neuts % (Manual) 89.0 H Lymphocytes % (Manual) 5.0 L Monocytes % (Manual) Eosinophils % (Manual) Basophils % (Manual) Nucleated RBC % Seg Neutrophils # Seg Neutrophils # Man 40.1 H Lymphocytes # (Manual) Monocytes # (Manual) Eosinophils # (Manual) PT INR Fibrinogen dRVVT Confirm Interp Factor V Activity POC ABG pH POC ABG pCO2 POC ABG pO2 ABG pO2 ABG HCO3 ABG Base Excess ABG Hemoglobin Oxyhemoglobin Sodium Potassium Chloride Carbon Dioxide BUN Creatinine Glucose POC Glucose 169 H 150 H Lactic Acid Calcium Phosphorus Magnesium Direct Bilirubin AST ALT Alkaline Phosphatase Lactate Dehydrogenase Troponin T C-Reactive Protein Total Protein Albumin Prealbumin Triglycerides Cholesterol LDL Cholesterol Direct HDL Cholesterol Urine pH Urine WBC (Auto) Urine Creatinine Urine Total Protein Fluid Total Protein Vancomycin Trough Rheumatoid Factor Complement C4 Miscellaneous Test Crossmatch 09/13/16 09/13/16 09/13/16 04:00 11:26 17:31 WBC RBC Hgb Hct MCV MCH MCHC RDW Plt Count Lymph % (Auto) [place] % (Auto) Lymph # [place] # Baso # Seg Neutrophils % Seg Neuts % (Manual) Lymphocytes % (Manual) Monocytes % (Manual) Eosinophils % (Manual) Basophils % (Manual) Nucleated RBC % Seg Neutrophils # Seg Neutrophils # Man Lymphocytes # (Manual) Monocytes # (Manual) Eosinophils # (Manual) PT INR Fibrinogen dRVVT Confirm Interp Factor V Activity POC ABG pH POC ABG pCO2 POC ABG pO2 ABG pO2 ABG HCO3 ABG Base Excess ABG Hemoglobin Oxyhemoglobin Sodium Potassium Chloride Carbon Dioxide 20 L BUN 116 H Creatinine 3.0 H Glucose 172 H POC Glucose 140 H 183 H Lactic Acid Calcium Phosphorus Magnesium Direct Bilirubin AST ALT Alkaline Phosphatase Lactate Dehydrogenase Troponin T C-Reactive Protein Total Protein 6.2 L Albumin 2.9 L Prealbumin Triglycerides Cholesterol LDL Cholesterol Direct HDL Cholesterol Urine pH Urine WBC (Auto) Urine Creatinine Urine Total Protein Fluid Total Protein Vancomycin Trough Rheumatoid Factor Complement C4 Miscellaneous Test Crossmatch 09/13/16 09/14/16 09/14/16 23:23 04:06 04:07 WBC 29.4 H RBC Hgb 8.9 L Hct 27.3 L MCV 75 L MCH 24 L MCHC RDW 19.1 H Plt Count Lymph % (Auto) [place] % (Auto) Lymph # [place] # Baso # Seg Neutrophils % Seg Neuts % (Manual) 84.0 H Lymphocytes % (Manual) 6.0 L Monocytes % (Manual) 9.0 H Eosinophils % (Manual) Basophils % (Manual) Nucleated RBC % Seg Neutrophils # Seg Neutrophils # Man 24.7 H Lymphocytes # (Manual) Monocytes # (Manual) 2.6 H Eosinophils # (Manual) PT INR Fibrinogen dRVVT Confirm Interp Factor V Activity POC ABG pH 7.342 L POC ABG pCO2 POC ABG pO2 116 H ABG pO2 ABG HCO3 ABG Base Excess ABG Hemoglobin Oxyhemoglobin Sodium Potassium Chloride Carbon Dioxide BUN Creatinine Glucose POC Glucose 154 H Lactic Acid Calcium Phosphorus Magnesium Direct Bilirubin AST ALT Alkaline Phosphatase Lactate Dehydrogenase Troponin T C-Reactive Protein Total Protein Albumin Prealbumin Triglycerides Cholesterol LDL Cholesterol Direct HDL Cholesterol Urine pH Urine WBC (Auto) Urine Creatinine Urine Total Protein Fluid Total Protein Vancomycin Trough Rheumatoid Factor Complement C4 Miscellaneous Test Crossmatch 09/14/16 09/14/16 09/14/16 04:07 05:29 12:19 WBC RBC Hgb Hct MCV MCH MCHC RDW Plt Count Lymph % (Auto) [place] % (Auto) Lymph # [place] # Baso # Seg Neutrophils % Seg Neuts % (Manual) Lymphocytes % (Manual) Monocytes % (Manual) Eosinophils % (Manual) Basophils % (Manual) Nucleated RBC % Seg Neutrophils # Seg Neutrophils # Man Lymphocytes # (Manual) Monocytes # (Manual) Eosinophils # (Manual) PT INR Fibrinogen dRVVT Confirm Interp Factor V Activity POC ABG pH POC ABG pCO2 POC ABG pO2 ABG pO2 ABG HCO3 ABG Base Excess ABG Hemoglobin Oxyhemoglobin Sodium 136 L Potassium Chloride Carbon Dioxide 18 L BUN 121 H Creatinine 2.8 H Glucose 214 H POC Glucose 239 H 181 H Lactic Acid Calcium Phosphorus Magnesium Direct Bilirubin AST ALT Alkaline Phosphatase Lactate Dehydrogenase Troponin T C-Reactive Protein Total Protein Albumin Prealbumin Triglycerides Cholesterol LDL Cholesterol Direct HDL Cholesterol Urine pH Urine WBC (Auto) Urine Creatinine Urine Total Protein Fluid Total Protein Vancomycin Trough Rheumatoid Factor Complement C4 Miscellaneous Test Crossmatch 09/14/16 09/14/16 09/15/16 18:12 23:37 05:00 WBC 26.1 H RBC 3.05 L Hgb 7.2 L Hct 22.9 L MCV 75 L MCH 24 L MCHC RDW 19.0 H Plt Count Lymph % (Auto) [place] % (Auto) Lymph # [place] # Baso # Seg Neutrophils % Seg Neuts % (Manual) Lymphocytes % (Manual) Monocytes % (Manual) Eosinophils % (Manual) Basophils % (Manual) Nucleated RBC % Seg Neutrophils # Seg Neutrophils # Man Lymphocytes # (Manual) Monocytes # (Manual) Eosinophils # (Manual) PT INR Fibrinogen dRVVT Confirm Interp Factor V Activity POC ABG pH POC ABG pCO2 POC ABG pO2 ABG pO2 ABG HCO3 ABG Base Excess ABG Hemoglobin Oxyhemoglobin Sodium Potassium Chloride Carbon Dioxide BUN Creatinine Glucose POC Glucose 266 H 154 H Lactic Acid Calcium Phosphorus Magnesium Direct Bilirubin AST ALT Alkaline Phosphatase Lactate Dehydrogenase Troponin T C-Reactive Protein Total Protein Albumin Prealbumin Triglycerides Cholesterol LDL Cholesterol Direct HDL Cholesterol Urine pH Urine WBC (Auto) Urine Creatinine Urine Total Protein Fluid Total Protein Vancomycin Trough Rheumatoid Factor Complement C4 Miscellaneous Test Crossmatch 09/15/16 09/15/16 09/15/16 05:00 05:17 12:45 WBC RBC Hgb Hct MCV MCH MCHC RDW Plt Count Lymph % (Auto) [place] % (Auto) Lymph # [place] # Baso # Seg Neutrophils % Seg Neuts % (Manual) Lymphocytes % (Manual) Monocytes % (Manual) Eosinophils % (Manual) Basophils % (Manual) Nucleated RBC % Seg Neutrophils # Seg Neutrophils # Man Lymphocytes # (Manual) Monocytes # (Manual) Eosinophils # (Manual) PT INR Fibrinogen dRVVT Confirm Interp Factor V Activity POC ABG pH POC ABG pCO2 POC ABG pO2 ABG pO2 ABG HCO3 ABG Base Excess ABG Hemoglobin Oxyhemoglobin Sodium Potassium 5.2 H Chloride Carbon Dioxide 18 L BUN 139 H Creatinine 3.7 H Glucose 227 H POC Glucose 226 H 244 H Lactic Acid Calcium 8.3 L Phosphorus Magnesium Direct Bilirubin AST ALT Alkaline Phosphatase Lactate Dehydrogenase Troponin T C-Reactive Protein Total Protein Albumin Prealbumin Triglycerides Cholesterol LDL Cholesterol Direct HDL Cholesterol Urine pH Urine WBC (Auto) Urine Creatinine Urine Total Protein Fluid Total Protein Vancomycin Trough Rheumatoid Factor Complement C4 Miscellaneous Test Crossmatch 09/15/16 09/15/16 09/15/16 14:32 17:33 23:35 WBC RBC Hgb Hct MCV MCH MCHC RDW Plt Count Lymph % (Auto) [place] % (Auto) Lymph # [place] # Baso # Seg Neutrophils % Seg Neuts % (Manual) Lymphocytes % (Manual) Monocytes % (Manual) Eosinophils % (Manual) Basophils % (Manual) Nucleated RBC % Seg Neutrophils # Seg Neutrophils # Man Lymphocytes # (Manual) Monocytes # (Manual) Eosinophils # (Manual) PT INR Fibrinogen dRVVT Confirm Interp Factor V Activity POC ABG pH POC ABG pCO2 27.7 L POC ABG pO2 120 H ABG pO2 ABG HCO3 ABG Base Excess ABG Hemoglobin Oxyhemoglobin Sodium Potassium Chloride Carbon Dioxide BUN Creatinine Glucose POC Glucose 232 H 167 H Lactic Acid Calcium Phosphorus Magnesium Direct Bilirubin AST ALT Alkaline Phosphatase Lactate Dehydrogenase Troponin T C-Reactive Protein Total Protein Albumin Prealbumin Triglycerides Cholesterol LDL Cholesterol Direct HDL Cholesterol Urine pH Urine WBC (Auto) Urine Creatinine Urine Total Protein Fluid Total Protein Vancomycin Trough Rheumatoid Factor Complement C4 Miscellaneous Test Crossmatch 09/16/16 09/16/16 09/16/16 03:58 10:27 10:27 WBC 19.0 H RBC 2.77 L Hgb 6.5 L Hct 20.9 L MCV 76 L MCH 23 L MCHC RDW 19.3 H Plt Count Lymph % (Auto) 11.0 L [place] % (Auto) Lymph # [place] # 1.1 H Baso # Seg Neutrophils % 82.5 H Seg Neuts % (Manual) Lymphocytes % (Manual) Monocytes % (Manual) Eosinophils % (Manual) Basophils % (Manual) Nucleated RBC % Seg Neutrophils # 15.7 H Seg Neutrophils # Man Lymphocytes # (Manual) Monocytes # (Manual) Eosinophils # (Manual) PT INR Fibrinogen dRVVT Confirm Interp Factor V Activity POC ABG pH POC ABG pCO2 POC ABG pO2 ABG pO2 ABG HCO3 ABG Base Excess ABG Hemoglobin Oxyhemoglobin Sodium Potassium Chloride 109.3 H Carbon Dioxide 18 L BUN 139 H Creatinine 4.1 H Glucose 144 H POC Glucose 146 H Lactic Acid Calcium 8.1 L Phosphorus Magnesium Direct Bilirubin AST ALT Alkaline Phosphatase Lactate Dehydrogenase Troponin T C-Reactive Protein Total Protein Albumin Prealbumin Triglycerides Cholesterol LDL Cholesterol Direct HDL Cholesterol Urine pH Urine WBC (Auto) Urine Creatinine Urine Total Protein Fluid Total Protein Vancomycin Trough Rheumatoid Factor Complement C4 Miscellaneous Test Crossmatch 09/16/16 09/16/16 09/16/16 12:04 12:10 13:55 WBC RBC Hgb Hct MCV MCH MCHC RDW Plt Count Lymph % (Auto) [place] % (Auto) Lymph # [place] # Baso # Seg Neutrophils % Seg Neuts % (Manual) Lymphocytes % (Manual) Monocytes % (Manual) Eosinophils % (Manual) Basophils % (Manual) Nucleated RBC % Seg Neutrophils # Seg Neutrophils # Man Lymphocytes # (Manual) Monocytes # (Manual) Eosinophils # (Manual) PT INR Fibrinogen dRVVT Confirm Interp Factor V Activity POC ABG pH POC ABG pCO2 32.9 L POC ABG pO2 ABG pO2 ABG HCO3 ABG Base Excess ABG Hemoglobin Oxyhemoglobin Sodium Potassium Chloride Carbon Dioxide BUN Creatinine Glucose POC Glucose 185 H Lactic Acid Calcium Phosphorus Magnesium Direct Bilirubin AST ALT Alkaline Phosphatase Lactate Dehydrogenase Troponin T C-Reactive Protein Total Protein Albumin Prealbumin Triglycerides Cholesterol LDL Cholesterol Direct HDL Cholesterol Urine pH Urine WBC (Auto) Urine Creatinine Urine Total Protein Fluid Total Protein Vancomycin Trough Rheumatoid Factor Complement C4 Miscellaneous Test Crossmatch See Detail 09/16/16 09/16/16 09/16/16 17:55 19:19 23:48 WBC RBC Hgb Hct MCV MCH MCHC RDW Plt Count Lymph % (Auto) [place] % (Auto) Lymph # [place] # Baso # Seg Neutrophils % Seg Neuts % (Manual) Lymphocytes % (Manual) Monocytes % (Manual) Eosinophils % (Manual) Basophils % (Manual) Nucleated RBC % Seg Neutrophils # Seg Neutrophils # Man Lymphocytes # (Manual) Monocytes # (Manual) Eosinophils # (Manual) PT INR Fibrinogen dRVVT Confirm Interp Factor V Activity POC ABG pH POC ABG pCO2 POC ABG pO2 ABG pO2 ABG HCO3 ABG Base Excess ABG Hemoglobin Oxyhemoglobin Sodium Potassium Chloride Carbon Dioxide BUN Creatinine Glucose POC Glucose 222 H 107 H Lactic Acid Calcium Phosphorus Magnesium Direct Bilirubin AST ALT Alkaline Phosphatase Lactate Dehydrogenase Troponin T C-Reactive Protein Total Protein Albumin Prealbumin Triglycerides Cholesterol LDL Cholesterol Direct HDL Cholesterol Urine pH Urine WBC (Auto) Urine Creatinine 47.4 H Urine Total Protein 16 H Fluid Total Protein Vancomycin Trough Rheumatoid Factor Complement C4 Miscellaneous Test Crossmatch 09/17/16 09/17/16 09/17/16 03:45 03:45 04:55 WBC 19.6 H RBC 3.41 L Hgb 8.5 L Hct 26.7 L MCV 78 L MCH 25 L MCHC RDW 19.9 H Plt Count Lymph % (Auto) 9.3 L [place] % (Auto) Lymph # [place] # 1.2 H Baso # Seg Neutrophils % 83.9 H Seg Neuts % (Manual) Lymphocytes % (Manual) Monocytes % (Manual) Eosinophils % (Manual) Basophils % (Manual) Nucleated RBC % Seg Neutrophils # 16.4 H Seg Neutrophils # Man Lymphocytes # (Manual) Monocytes # (Manual) Eosinophils # (Manual) PT INR Fibrinogen dRVVT Confirm Interp Factor V Activity POC ABG pH POC ABG pCO2 POC ABG pO2 ABG pO2 ABG HCO3 ABG Base Excess ABG Hemoglobin Oxyhemoglobin Sodium 146 H Potassium 5.1 H Chloride 110.9 H Carbon Dioxide 16 L BUN 146 H Creatinine 4.0 H Glucose 108 H POC Glucose 133 H Lactic Acid Calcium Phosphorus Magnesium 3.00 H Direct Bilirubin AST ALT Alkaline Phosphatase Lactate Dehydrogenase Troponin T C-Reactive Protein Total Protein Albumin Prealbumin Triglycerides Cholesterol LDL Cholesterol Direct HDL Cholesterol Urine pH Urine WBC (Auto) Urine Creatinine Urine Total Protein Fluid Total Protein Vancomycin Trough Rheumatoid Factor Complement C4 Miscellaneous Test Crossmatch 09/17/16 09/17/16 09/17/16 11:15 17:33 23:47 WBC RBC Hgb Hct MCV MCH MCHC RDW Plt Count Lymph % (Auto) [place] % (Auto) Lymph # [place] # Baso # Seg Neutrophils % Seg Neuts % (Manual) Lymphocytes % (Manual) Monocytes % (Manual) Eosinophils % (Manual) Basophils % (Manual) Nucleated RBC % Seg Neutrophils # Seg Neutrophils # Man Lymphocytes # (Manual) Monocytes # (Manual) Eosinophils # (Manual) PT INR Fibrinogen dRVVT Confirm Interp Factor V Activity POC ABG pH POC ABG pCO2 POC ABG pO2 ABG pO2 ABG HCO3 ABG Base Excess ABG Hemoglobin Oxyhemoglobin Sodium Potassium Chloride Carbon Dioxide BUN Creatinine Glucose POC Glucose 176 H 246 H 148 H Lactic Acid Calcium Phosphorus Magnesium Direct Bilirubin AST ALT Alkaline Phosphatase Lactate Dehydrogenase Troponin T C-Reactive Protein Total Protein Albumin Prealbumin Triglycerides Cholesterol LDL Cholesterol Direct HDL Cholesterol Urine pH Urine WBC (Auto) Urine Creatinine Urine Total Protein Fluid Total Protein Vancomycin Trough Rheumatoid Factor Complement C4 Miscellaneous Test Crossmatch 09/18/16 09/18/16 09/18/16 05:33 08:31 08:31 WBC 18.0 H RBC 3.17 L Hgb 9.0 L Hct 25.7 L MCV MCH MCHC 35 H RDW 20.4 H Plt Count Lymph % (Auto) [place] % (Auto) Lymph # [place] # Baso # Seg Neutrophils % Seg Neuts % (Manual) Lymphocytes % (Manual) Monocytes % (Manual) Eosinophils % (Manual) Basophils % (Manual) Nucleated RBC % Seg Neutrophils # Seg Neutrophils # Man Lymphocytes # (Manual) Monocytes # (Manual) Eosinophils # (Manual) PT INR Fibrinogen dRVVT Confirm Interp Factor V Activity POC ABG pH POC ABG pCO2 POC ABG pO2 ABG pO2 ABG HCO3 ABG Base Excess ABG Hemoglobin Oxyhemoglobin Sodium Potassium Chloride Carbon Dioxide 15 L BUN 124 H Creatinine 3.8 H Glucose POC Glucose 120 H Lactic Acid Calcium 8.1 L Phosphorus Magnesium Direct Bilirubin AST ALT Alkaline Phosphatase Lactate Dehydrogenase Troponin T C-Reactive Protein Total Protein Albumin Prealbumin Triglycerides Cholesterol LDL Cholesterol Direct HDL Cholesterol Urine pH Urine WBC (Auto) Urine Creatinine Urine Total Protein Fluid Total Protein Vancomycin Trough Rheumatoid Factor Complement C4 Miscellaneous Test Crossmatch 09/18/16 09/18/16 09/18/16 12:03 15:34 17:50 WBC RBC Hgb Hct MCV MCH MCHC RDW Plt Count Lymph % (Auto) [place] % (Auto) Lymph # [place] # Baso # Seg Neutrophils % Seg Neuts % (Manual) Lymphocytes % (Manual) Monocytes % (Manual) Eosinophils % (Manual) Basophils % (Manual) Nucleated RBC % Seg Neutrophils # Seg Neutrophils # Man Lymphocytes # (Manual) Monocytes # (Manual) Eosinophils # (Manual) PT INR Fibrinogen dRVVT Confirm Interp Factor V Activity POC ABG pH POC ABG pCO2 25.7 L POC ABG pO2 66 L ABG pO2 ABG HCO3 ABG Base Excess ABG Hemoglobin Oxyhemoglobin Sodium Potassium Chloride Carbon Dioxide BUN Creatinine Glucose POC Glucose 156 H 220 H Lactic Acid Calcium Phosphorus Magnesium Direct Bilirubin AST ALT Alkaline Phosphatase Lactate Dehydrogenase Troponin T C-Reactive Protein Total Protein Albumin Prealbumin Triglycerides Cholesterol LDL Cholesterol Direct HDL Cholesterol Urine pH Urine WBC (Auto) Urine Creatinine Urine Total Protein Fluid Total Protein Vancomycin Trough Rheumatoid Factor Complement C4 Miscellaneous Test Crossmatch 09/19/16 09/19/16 09/19/16 06:21 09:50 09:50 WBC 17.1 H RBC 3.49 L Hgb 9.0 L Hct 28.1 L MCV MCH 26 L MCHC RDW 20.8 H Plt Count Lymph % (Auto) 11.5 L [place] % (Auto) 7.5 H Lymph # [place] # 1.3 H Baso # Seg Neutrophils % 79.8 H Seg Neuts % (Manual) Lymphocytes % (Manual) Monocytes % (Manual) Eosinophils % (Manual) Basophils % (Manual) Nucleated RBC % Seg Neutrophils # 13.7 H Seg Neutrophils # Man Lymphocytes # (Manual) Monocytes # (Manual) Eosinophils # (Manual) PT INR Fibrinogen dRVVT Confirm Interp Factor V Activity POC ABG pH POC ABG pCO2 POC ABG pO2 ABG pO2 ABG HCO3 ABG Base Excess ABG Hemoglobin Oxyhemoglobin Sodium Potassium Chloride 108.6 H Carbon Dioxide 15 L BUN 125 H Creatinine 4.1 H Glucose 124 H POC Glucose 119 H Lactic Acid Calcium Phosphorus Magnesium Direct Bilirubin AST ALT Alkaline Phosphatase Lactate Dehydrogenase Troponin T C-Reactive Protein Total Protein Albumin Prealbumin Triglycerides Cholesterol LDL Cholesterol Direct HDL Cholesterol Urine pH Urine WBC (Auto) Urine Creatinine Urine Total Protein Fluid Total Protein Vancomycin Trough Rheumatoid Factor Complement C4 Miscellaneous Test Crossmatch 09/19/16 09/19/16 09/19/16 11:25 17:53 23:36 WBC RBC Hgb Hct MCV MCH MCHC RDW Plt Count Lymph % (Auto) [place] % (Auto) Lymph # [place] # Baso # Seg Neutrophils % Seg Neuts % (Manual) Lymphocytes % (Manual) Monocytes % (Manual) Eosinophils % (Manual) Basophils % (Manual) Nucleated RBC % Seg Neutrophils # Seg Neutrophils # Man Lymphocytes # (Manual) Monocytes # (Manual) Eosinophils # (Manual) PT INR Fibrinogen dRVVT Confirm Interp Factor V Activity POC ABG pH POC ABG pCO2 POC ABG pO2 ABG pO2 ABG HCO3 ABG Base Excess ABG Hemoglobin Oxyhemoglobin Sodium Potassium Chloride Carbon Dioxide BUN Creatinine Glucose POC Glucose 160 H 245 H 121 H Lactic Acid Calcium Phosphorus Magnesium Direct Bilirubin AST ALT Alkaline Phosphatase Lactate Dehydrogenase Troponin T C-Reactive Protein Total Protein Albumin Prealbumin Triglycerides Cholesterol LDL Cholesterol Direct HDL Cholesterol Urine pH Urine WBC (Auto) Urine Creatinine Urine Total Protein Fluid Total Protein Vancomycin Trough Rheumatoid Factor Complement C4 Miscellaneous Test Crossmatch 09/20/16 09/20/16 09/20/16 04:10 04:10 04:10 WBC 17.0 H RBC 3.21 L Hgb 8.2 L Hct 25.5 L MCV MCH 26 L MCHC RDW 20.9 H Plt Count Lymph % (Auto) [place] % (Auto) Lymph # [place] # Baso # Seg Neutrophils % Seg Neuts % (Manual) Lymphocytes % (Manual) Monocytes % (Manual) Eosinophils % (Manual) Basophils % (Manual) Nucleated RBC % Seg Neutrophils # Seg Neutrophils # Man Lymphocytes # (Manual) Monocytes # (Manual) Eosinophils # (Manual) PT INR Fibrinogen dRVVT Confirm Interp Factor V Activity POC ABG pH POC ABG pCO2 POC ABG pO2 ABG pO2 ABG HCO3 ABG Base Excess ABG Hemoglobin Oxyhemoglobin Sodium Potassium Chloride 111.0 H Carbon Dioxide 16 L BUN 129 H Creatinine 3.7 H Glucose 115 H POC Glucose Lactic Acid Calcium 8.2 L Phosphorus Magnesium Direct Bilirubin AST ALT Alkaline Phosphatase Lactate Dehydrogenase Troponin T C-Reactive Protein Total Protein Albumin Prealbumin Triglycerides 243 H Cholesterol LDL Cholesterol Direct HDL Cholesterol Urine pH Urine WBC (Auto) Urine Creatinine Urine Total Protein Fluid Total Protein Vancomycin Trough Rheumatoid Factor Complement C4 Miscellaneous Test Crossmatch 09/20/16 09/20/16 09/20/16 05:40 11:52 16:50 WBC RBC Hgb Hct MCV MCH MCHC RDW Plt Count Lymph % (Auto) [place] % (Auto) Lymph # [place] # Baso # Seg Neutrophils % Seg Neuts % (Manual) Lymphocytes % (Manual) Monocytes % (Manual) Eosinophils % (Manual) Basophils % (Manual) Nucleated RBC % Seg Neutrophils # Seg Neutrophils # Man Lymphocytes # (Manual) Monocytes # (Manual) Eosinophils # (Manual) PT INR Fibrinogen dRVVT Confirm Interp Factor V Activity POC ABG pH POC ABG pCO2 POC ABG pO2 ABG pO2 ABG HCO3 ABG Base Excess ABG Hemoglobin Oxyhemoglobin Sodium Potassium Chloride Carbon Dioxide BUN Creatinine Glucose POC Glucose 131 H 183 H 236 H Lactic Acid Calcium Phosphorus Magnesium Direct Bilirubin AST ALT Alkaline Phosphatase Lactate Dehydrogenase Troponin T C-Reactive Protein Total Protein Albumin Prealbumin Triglycerides Cholesterol LDL Cholesterol Direct HDL Cholesterol Urine pH Urine WBC (Auto) Urine Creatinine Urine Total Protein Fluid Total Protein Vancomycin Trough Rheumatoid Factor Complement C4 Miscellaneous Test Crossmatch 09/20/16 09/21/16 09/21/16 23:51 03:30 04:44 WBC RBC Hgb Hct MCV MCH MCHC RDW Plt Count Lymph % (Auto) [place] % (Auto) Lymph # [place] # Baso # Seg Neutrophils % Seg Neuts % (Manual) Lymphocytes % (Manual) Monocytes % (Manual) Eosinophils % (Manual) Basophils % (Manual) Nucleated RBC % Seg Neutrophils # Seg Neutrophils # Man Lymphocytes # (Manual) Monocytes # (Manual) Eosinophils # (Manual) PT INR Fibrinogen dRVVT Confirm Interp Factor V Activity POC ABG pH POC ABG pCO2 POC ABG pO2 ABG pO2 ABG HCO3 ABG Base Excess ABG Hemoglobin Oxyhemoglobin Sodium Potassium Chloride Carbon Dioxide BUN Creatinine Glucose POC Glucose 114 H 141 H Lactic Acid Calcium Phosphorus Magnesium 2.70 H Direct Bilirubin AST ALT Alkaline Phosphatase Lactate Dehydrogenase Troponin T C-Reactive Protein Total Protein Albumin Prealbumin Triglycerides Cholesterol LDL Cholesterol Direct HDL Cholesterol Urine pH Urine WBC (Auto) Urine Creatinine Urine Total Protein Fluid Total Protein Vancomycin Trough Rheumatoid Factor Complement C4 Miscellaneous Test Crossmatch 09/21/16 09/21/16 09/21/16 07:45 07:45 10:01 WBC 13.8 H RBC 2.94 L Hgb 7.5 L Hct 23.5 L MCV MCH 26 L MCHC RDW 21.2 H Plt Count Lymph % (Auto) 6.9 L [place] % (Auto) 9.4 H Lymph # 0.9 L [place] # 1.3 H Baso # Seg Neutrophils % 83.2 H Seg Neuts % (Manual) Lymphocytes % (Manual) Monocytes % (Manual) Eosinophils % (Manual) Basophils % (Manual) Nucleated RBC % Seg Neutrophils # 11.5 H Seg Neutrophils # Man Lymphocytes # (Manual) Monocytes # (Manual) Eosinophils # (Manual) PT INR Fibrinogen dRVVT Confirm Interp Factor V Activity POC ABG pH 7.308 L POC ABG pCO2 31.9 L POC ABG pO2 148 H ABG pO2 ABG HCO3 ABG Base Excess ABG Hemoglobin Oxyhemoglobin Sodium 147 H Potassium Chloride 114.2 H Carbon Dioxide 15 L BUN 120 H Creatinine 3.9 H Glucose 156 H POC Glucose Lactic Acid Calcium 8.2 L Phosphorus Magnesium Direct Bilirubin AST ALT Alkaline Phosphatase Lactate Dehydrogenase Troponin T C-Reactive Protein Total Protein Albumin Prealbumin Triglycerides Cholesterol LDL Cholesterol Direct HDL Cholesterol Urine pH Urine WBC (Auto) Urine Creatinine Urine Total Protein Fluid Total Protein Vancomycin Trough Rheumatoid Factor Complement C4 Miscellaneous Test Crossmatch 09/21/16 09/21/16 09/21/16 12:00 12:03 13:00 WBC RBC Hgb Hct MCV MCH MCHC RDW Plt Count Lymph % (Auto) [place] % (Auto) Lymph # [place] # Baso # Seg Neutrophils % Seg Neuts % (Manual) Lymphocytes % (Manual) Monocytes % (Manual) Eosinophils % (Manual) Basophils % (Manual) Nucleated RBC % Seg Neutrophils # Seg Neutrophils # Man Lymphocytes # (Manual) Monocytes # (Manual) Eosinophils # (Manual) PT INR Fibrinogen dRVVT Confirm Interp Factor V Activity POC ABG pH POC ABG pCO2 POC ABG pO2 ABG pO2 ABG HCO3 ABG Base Excess ABG Hemoglobin Oxyhemoglobin Sodium Potassium Chloride Carbon Dioxide BUN Creatinine Glucose POC Glucose 163 H Lactic Acid Calcium Phosphorus Magnesium Direct Bilirubin AST ALT Alkaline Phosphatase Lactate Dehydrogenase Troponin T C-Reactive Protein Total Protein Albumin Prealbumin Triglycerides Cholesterol LDL Cholesterol Direct HDL Cholesterol Urine pH Urine WBC (Auto) Urine Creatinine 54.8 H Urine Total Protein Fluid Total Protein Vancomycin Trough 2.3 L Rheumatoid Factor Complement C4 Miscellaneous Test Crossmatch 09/21/16 09/21/16 09/22/16 16:51 23:17 06:27 WBC RBC Hgb Hct MCV MCH MCHC RDW Plt Count Lymph % (Auto) [place] % (Auto) Lymph # [place] # Baso # Seg Neutrophils % Seg Neuts % (Manual) Lymphocytes % (Manual) Monocytes % (Manual) Eosinophils % (Manual) Basophils % (Manual) Nucleated RBC % Seg Neutrophils # Seg Neutrophils # Man Lymphocytes # (Manual) Monocytes # (Manual) Eosinophils # (Manual) PT INR Fibrinogen dRVVT Confirm Interp Factor V Activity POC ABG pH POC ABG pCO2 POC ABG pO2 ABG pO2 ABG HCO3 ABG Base Excess ABG Hemoglobin Oxyhemoglobin Sodium Potassium Chloride Carbon Dioxide BUN Creatinine Glucose POC Glucose 206 H 114 H 115 H Lactic Acid Calcium Phosphorus Magnesium Direct Bilirubin AST ALT Alkaline Phosphatase Lactate Dehydrogenase Troponin T C-Reactive Protein Total Protein Albumin Prealbumin Triglycerides Cholesterol LDL Cholesterol Direct HDL Cholesterol Urine pH Urine WBC (Auto) Urine Creatinine Urine Total Protein Fluid Total Protein Vancomycin Trough Rheumatoid Factor Complement C4 Miscellaneous Test Crossmatch 09/22/16 09/22/16 09/22/16 07:50 07:50 12:00 WBC 17.8 H RBC 3.04 L Hgb 8.0 L Hct 24.7 L MCV MCH 26 L MCHC RDW 21.6 H Plt Count Lymph % (Auto) [place] % (Auto) Lymph # [place] # Baso # Seg Neutrophils % Seg Neuts % (Manual) Lymphocytes % (Manual) Monocytes % (Manual) Eosinophils % (Manual) Basophils % (Manual) Nucleated RBC % Seg Neutrophils # Seg Neutrophils # Man Lymphocytes # (Manual) Monocytes # (Manual) Eosinophils # (Manual) PT INR Fibrinogen dRVVT Confirm Interp Factor V Activity POC ABG pH POC ABG pCO2 POC ABG pO2 ABG pO2 ABG HCO3 ABG Base Excess ABG Hemoglobin Oxyhemoglobin Sodium 150 H Potassium Chloride 118.2 H Carbon Dioxide 14 L BUN 111 H Creatinine 3.7 H Glucose 157 H POC Glucose 183 H Lactic Acid Calcium Phosphorus Magnesium Direct Bilirubin AST ALT Alkaline Phosphatase Lactate Dehydrogenase Troponin T C-Reactive Protein Total Protein Albumin Prealbumin Triglycerides Cholesterol LDL Cholesterol Direct HDL Cholesterol Urine pH Urine WBC (Auto) Urine Creatinine Urine Total Protein Fluid Total Protein Vancomycin Trough Rheumatoid Factor Complement C4 Miscellaneous Test Crossmatch 09/22/16 09/22/16 09/23/16 17:29 23:10 05:00 WBC 19.2 H RBC 3.13 L Hgb 8.0 L Hct 25.2 L MCV MCH 26 L MCHC RDW 22.1 H Plt Count Lymph % (Auto) [place] % (Auto) Lymph # [place] # Baso # Seg Neutrophils % Seg Neuts % (Manual) 92.0 H Lymphocytes % (Manual) 3.0 L Monocytes % (Manual) Eosinophils % (Manual) Basophils % (Manual) Nucleated RBC % Seg Neutrophils # Seg Neutrophils # Man 17.7 H Lymphocytes # (Manual) 0.6 L Monocytes # (Manual) Eosinophils # (Manual) PT INR Fibrinogen dRVVT Confirm Interp Factor V Activity POC ABG pH POC ABG pCO2 POC ABG pO2 ABG pO2 ABG HCO3 ABG Base Excess ABG Hemoglobin Oxyhemoglobin Sodium Potassium Chloride Carbon Dioxide BUN Creatinine Glucose POC Glucose 197 H 169 H Lactic Acid Calcium Phosphorus Magnesium Direct Bilirubin AST ALT Alkaline Phosphatase Lactate Dehydrogenase Troponin T C-Reactive Protein Total Protein Albumin Prealbumin Triglycerides Cholesterol LDL Cholesterol Direct HDL Cholesterol Urine pH Urine WBC (Auto) Urine Creatinine Urine Total Protein Fluid Total Protein Vancomycin Trough Rheumatoid Factor Complement C4 Miscellaneous Test Crossmatch 09/23/16 09/23/16 09/23/16 05:00 05:00 05:10 WBC RBC Hgb Hct MCV MCH MCHC RDW Plt Count Lymph % (Auto) [place] % (Auto) Lymph # [place] # Baso # Seg Neutrophils % Seg Neuts % (Manual) Lymphocytes % (Manual) Monocytes % (Manual) Eosinophils % (Manual) Basophils % (Manual) Nucleated RBC % Seg Neutrophils # Seg Neutrophils # Man Lymphocytes # (Manual) Monocytes # (Manual) Eosinophils # (Manual) PT INR Fibrinogen dRVVT Confirm Interp Factor V Activity POC ABG pH POC ABG pCO2 POC ABG pO2 ABG pO2 ABG HCO3 ABG Base Excess ABG Hemoglobin Oxyhemoglobin Sodium 147 H Potassium 3.2 L Chloride 115.7 H Carbon Dioxide 13 L BUN 111 H Creatinine 3.8 H Glucose 194 H POC Glucose 188 H Lactic Acid Calcium 7.3 L D Phosphorus Magnesium Direct Bilirubin AST ALT Alkaline Phosphatase Lactate Dehydrogenase Troponin T C-Reactive Protein 3.20 H Total Protein Albumin Prealbumin Triglycerides Cholesterol LDL Cholesterol Direct HDL Cholesterol Urine pH Urine WBC (Auto) Urine Creatinine Urine Total Protein Fluid Total Protein Vancomycin Trough Rheumatoid Factor Complement C4 Miscellaneous Test Crossmatch 09/23/16 09/23/16 09/23/16 11:37 12:29 18:01 WBC RBC Hgb Hct MCV MCH MCHC RDW Plt Count Lymph % (Auto) [place] % (Auto) Lymph # [place] # Baso # Seg Neutrophils % Seg Neuts % (Manual) Lymphocytes % (Manual) Monocytes % (Manual) Eosinophils % (Manual) Basophils % (Manual) Nucleated RBC % Seg Neutrophils # Seg Neutrophils # Man Lymphocytes # (Manual) Monocytes # (Manual) Eosinophils # (Manual) PT INR Fibrinogen dRVVT Confirm Interp Factor V Activity POC ABG pH POC ABG pCO2 18.9 L POC ABG pO2 143 H ABG pO2 ABG HCO3 ABG Base Excess ABG Hemoglobin Oxyhemoglobin Sodium Potassium Chloride Carbon Dioxide BUN Creatinine Glucose POC Glucose 153 H 108 H Lactic Acid Calcium Phosphorus Magnesium Direct Bilirubin AST ALT Alkaline Phosphatase Lactate Dehydrogenase Troponin T C-Reactive Protein Total Protein Albumin Prealbumin Triglycerides Cholesterol LDL Cholesterol Direct HDL Cholesterol Urine pH Urine WBC (Auto) Urine Creatinine Urine Total Protein Fluid Total Protein Vancomycin Trough Rheumatoid Factor Complement C4 Miscellaneous Test Crossmatch 09/23/16 09/23/16 09/24/16 21:19 23:43 05:16 WBC RBC Hgb Hct MCV MCH MCHC RDW Plt Count Lymph % (Auto) [place] % (Auto) Lymph # [place] # Baso # Seg Neutrophils % Seg Neuts % (Manual) Lymphocytes % (Manual) Monocytes % (Manual) Eosinophils % (Manual) Basophils % (Manual) Nucleated RBC % Seg Neutrophils # Seg Neutrophils # Man Lymphocytes # (Manual) Monocytes # (Manual) Eosinophils # (Manual) PT INR Fibrinogen dRVVT Confirm Interp Factor V Activity POC ABG pH POC ABG pCO2 17.3 L POC ABG pO2 112 H ABG pO2 ABG HCO3 ABG Base Excess ABG Hemoglobin Oxyhemoglobin Sodium Potassium Chloride Carbon Dioxide BUN Creatinine Glucose POC Glucose 143 H 164 H Lactic Acid Calcium Phosphorus Magnesium Direct Bilirubin AST ALT Alkaline Phosphatase Lactate Dehydrogenase Troponin T C-Reactive Protein Total Protein Albumin Prealbumin Triglycerides Cholesterol LDL Cholesterol Direct HDL Cholesterol Urine pH Urine WBC (Auto) Urine Creatinine Urine Total Protein Fluid Total Protein Vancomycin Trough Rheumatoid Factor Complement C4 Miscellaneous Test Crossmatch 09/24/16 09/24/16 09/24/16 05:21 11:58 17:06 WBC RBC Hgb Hct MCV MCH MCHC RDW Plt Count Lymph % (Auto) [place] % (Auto) Lymph # [place] # Baso # Seg Neutrophils % Seg Neuts % (Manual) Lymphocytes % (Manual) Monocytes % (Manual) Eosinophils % (Manual) Basophils % (Manual) Nucleated RBC % Seg Neutrophils # Seg Neutrophils # Man Lymphocytes # (Manual) Monocytes # (Manual) Eosinophils # (Manual) PT INR Fibrinogen dRVVT Confirm Interp Factor V Activity POC ABG pH POC ABG pCO2 POC ABG pO2 ABG pO2 ABG HCO3 ABG Base Excess ABG Hemoglobin Oxyhemoglobin Sodium Potassium Chloride Carbon Dioxide 10 L BUN 103 H Creatinine 4.3 H Glucose 163 H POC Glucose 173 H 167 H Lactic Acid Calcium 6.5 L Phosphorus Magnesium Direct Bilirubin AST ALT Alkaline Phosphatase Lactate Dehydrogenase Troponin T C-Reactive Protein Total Protein Albumin Prealbumin Triglycerides Cholesterol LDL Cholesterol Direct HDL Cholesterol Urine pH Urine WBC (Auto) Urine Creatinine Urine Total Protein Fluid Total Protein Vancomycin Trough Rheumatoid Factor Complement C4 Miscellaneous Test Crossmatch 09/24/16 09/24/16 09/24/16 20:15 21:02 23:48 WBC RBC Hgb Hct MCV MCH MCHC RDW Plt Count Lymph % (Auto) [place] % (Auto) Lymph # [place] # Baso # Seg Neutrophils % Seg Neuts % (Manual) Lymphocytes % (Manual) Monocytes % (Manual) Eosinophils % (Manual) Basophils % (Manual) Nucleated RBC % Seg Neutrophils # Seg Neutrophils # Man Lymphocytes # (Manual) Monocytes # (Manual) Eosinophils # (Manual) PT INR Fibrinogen dRVVT Confirm Interp Factor V Activity POC ABG pH 7.288 L POC ABG pCO2 30.2 L 21.5 L POC ABG pO2 32 L 39 L ABG pO2 ABG HCO3 ABG Base Excess ABG Hemoglobin Oxyhemoglobin Sodium Potassium Chloride Carbon Dioxide BUN Creatinine Glucose POC Glucose 109 H Lactic Acid Calcium Phosphorus Magnesium Direct Bilirubin AST ALT Alkaline Phosphatase Lactate Dehydrogenase Troponin T C-Reactive Protein Total Protein Albumin Prealbumin Triglycerides Cholesterol LDL Cholesterol Direct HDL Cholesterol Urine pH Urine WBC (Auto) Urine Creatinine Urine Total Protein Fluid Total Protein Vancomycin Trough Rheumatoid Factor Complement C4 Miscellaneous Test Crossmatch 09/25/16 09/25/16 09/25/16 04:20 04:20 04:20 WBC RBC 2.58 L Hgb 7.0 L Hct 21.0 L MCV MCH 27 L MCHC RDW 23.8 H Plt Count Lymph % (Auto) [place] % (Auto) Lymph # [place] # Baso # Seg Neutrophils % Seg Neuts % (Manual) Lymphocytes % (Manual) 12.0 L Monocytes % (Manual) Eosinophils % (Manual) 7.0 H Basophils % (Manual) 2.0 H Nucleated RBC % Seg Neutrophils # Seg Neutrophils # Man Lymphocytes # (Manual) 0.9 L Monocytes # (Manual) Eosinophils # (Manual) 0.5 H PT INR Fibrinogen dRVVT Confirm Interp Factor V Activity POC ABG pH POC ABG pCO2 POC ABG pO2 ABG pO2 ABG HCO3 ABG Base Excess ABG Hemoglobin Oxyhemoglobin Sodium Potassium Chloride Carbon Dioxide 15 L BUN 72 H Creatinine 3.8 H Glucose POC Glucose Lactic Acid Calcium 6.0 L Phosphorus 4.60 H Magnesium 1.60 L Direct Bilirubin AST ALT Alkaline Phosphatase Lactate Dehydrogenase Troponin T C-Reactive Protein Total Protein Albumin Prealbumin Triglycerides Cholesterol LDL Cholesterol Direct HDL Cholesterol Urine pH Urine WBC (Auto) Urine Creatinine Urine Total Protein Fluid Total Protein Vancomycin Trough Rheumatoid Factor Complement C4 Miscellaneous Test Crossmatch 09/25/16 09/25/16 09/25/16 04:57 08:02 10:30 WBC RBC Hgb Hct MCV MCH MCHC RDW Plt Count Lymph % (Auto) [place] % (Auto) Lymph # [place] # Baso # Seg Neutrophils % Seg Neuts % (Manual) Lymphocytes % (Manual) Monocytes % (Manual) Eosinophils % (Manual) Basophils % (Manual) Nucleated RBC % Seg Neutrophils # Seg Neutrophils # Man Lymphocytes # (Manual) Monocytes # (Manual) Eosinophils # (Manual) PT INR Fibrinogen dRVVT Confirm Interp Factor V Activity POC ABG pH POC ABG pCO2 24.7 L POC ABG pO2 152 H ABG pO2 ABG HCO3 ABG Base Excess ABG Hemoglobin Oxyhemoglobin Sodium Potassium Chloride Carbon Dioxide BUN Creatinine Glucose POC Glucose 113 H Lactic Acid Calcium Phosphorus Magnesium Direct Bilirubin AST ALT Alkaline Phosphatase Lactate Dehydrogenase Troponin T C-Reactive Protein Total Protein Albumin Prealbumin Triglycerides Cholesterol LDL Cholesterol Direct HDL Cholesterol Urine pH Urine WBC (Auto) Urine Creatinine Urine Total Protein Fluid Total Protein Vancomycin Trough Rheumatoid Factor Complement C4 Miscellaneous Test Crossmatch See Detail 09/25/16 09/25/16 09/25/16 12:05 17:44 23:47 WBC RBC Hgb Hct MCV MCH MCHC RDW Plt Count Lymph % (Auto) [place] % (Auto) Lymph # [place] # Baso # Seg Neutrophils % Seg Neuts % (Manual) Lymphocytes % (Manual) Monocytes % (Manual) Eosinophils % (Manual) Basophils % (Manual) Nucleated RBC % Seg Neutrophils # Seg Neutrophils # Man Lymphocytes # (Manual) Monocytes # (Manual) Eosinophils # (Manual) PT INR Fibrinogen dRVVT Confirm Interp Factor V Activity POC ABG pH POC ABG pCO2 POC ABG pO2 ABG pO2 ABG HCO3 ABG Base Excess ABG Hemoglobin Oxyhemoglobin Sodium Potassium Chloride Carbon Dioxide BUN Creatinine Glucose POC Glucose 117 H 119 H 150 H Lactic Acid Calcium Phosphorus Magnesium Direct Bilirubin AST ALT Alkaline Phosphatase Lactate Dehydrogenase Troponin T C-Reactive Protein Total Protein Albumin Prealbumin Triglycerides Cholesterol LDL Cholesterol Direct HDL Cholesterol Urine pH Urine WBC (Auto) Urine Creatinine Urine Total Protein Fluid Total Protein Vancomycin Trough Rheumatoid Factor Complement C4 Miscellaneous Test Crossmatch 09/26/16 09/26/16 09/26/16 04:25 04:25 04:25 WBC RBC 2.65 L Hgb 7.4 L Hct 21.6 L MCV MCH MCHC RDW 22.5 H Plt Count Lymph % (Auto) [place] % (Auto) Lymph # [place] # Baso # Seg Neutrophils % Seg Neuts % (Manual) Lymphocytes % (Manual) 6.0 L Monocytes % (Manual) Eosinophils % (Manual) 11.0 H Basophils % (Manual) Nucleated RBC % Seg Neutrophils # Seg Neutrophils # Man Lymphocytes # (Manual) 0.4 L Monocytes # (Manual) Eosinophils # (Manual) 0.6 H PT INR Fibrinogen dRVVT Confirm Interp Factor V Activity POC ABG pH POC ABG pCO2 POC ABG pO2 ABG pO2 ABG HCO3 ABG Base Excess ABG Hemoglobin Oxyhemoglobin Sodium Potassium Chloride 97.0 L Carbon Dioxide 19 L BUN 43 H Creatinine 2.6 H Glucose 130 H POC Glucose Lactic Acid 4.40 H* Calcium 6.7 L Phosphorus Magnesium Direct Bilirubin AST ALT Alkaline Phosphatase Lactate Dehydrogenase Troponin T C-Reactive Protein Total Protein Albumin Prealbumin Triglycerides Cholesterol LDL Cholesterol Direct HDL Cholesterol Urine pH Urine WBC (Auto) Urine Creatinine Urine Total Protein Fluid Total Protein Vancomycin Trough Rheumatoid Factor Complement C4 Miscellaneous Test Crossmatch 09/26/16 09/26/16 09/26/16 05:20 11:44 12:12 WBC RBC Hgb Hct MCV MCH MCHC RDW Plt Count Lymph % (Auto) [place] % (Auto) Lymph # [place] # Baso # Seg Neutrophils % Seg Neuts % (Manual) Lymphocytes % (Manual) Monocytes % (Manual) Eosinophils % (Manual) Basophils % (Manual) Nucleated RBC % Seg Neutrophils # Seg Neutrophils # Man Lymphocytes # (Manual) Monocytes # (Manual) Eosinophils # (Manual) PT INR Fibrinogen dRVVT Confirm Interp Factor V Activity POC ABG pH POC ABG pCO2 27.0 L POC ABG pO2 69 L ABG pO2 ABG HCO3 ABG Base Excess ABG Hemoglobin Oxyhemoglobin Sodium Potassium Chloride Carbon Dioxide BUN Creatinine Glucose POC Glucose 121 H 128 H Lactic Acid Calcium Phosphorus Magnesium Direct Bilirubin AST ALT Alkaline Phosphatase Lactate Dehydrogenase Troponin T C-Reactive Protein Total Protein Albumin Prealbumin Triglycerides Cholesterol LDL Cholesterol Direct HDL Cholesterol Urine pH Urine WBC (Auto) Urine Creatinine Urine Total Protein Fluid Total Protein Vancomycin Trough Rheumatoid Factor Complement C4 Miscellaneous Test Crossmatch 09/26/16 09/26/16 09/27/16 18:31 23:40 08:20 WBC RBC Hgb Hct MCV MCH MCHC RDW Plt Count Lymph % (Auto) [place] % (Auto) Lymph # [place] # Baso # Seg Neutrophils % Seg Neuts % (Manual) Lymphocytes % (Manual) Monocytes % (Manual) Eosinophils % (Manual) Basophils % (Manual) Nucleated RBC % Seg Neutrophils # Seg Neutrophils # Man Lymphocytes # (Manual) Monocytes # (Manual) Eosinophils # (Manual) PT INR Fibrinogen dRVVT Confirm Interp Factor V Activity POC ABG pH POC ABG pCO2 POC ABG pO2 ABG pO2 ABG HCO3 ABG Base Excess ABG Hemoglobin Oxyhemoglobin Sodium Potassium Chloride Carbon Dioxide BUN Creatinine Glucose POC Glucose 120 H 133 H Lactic Acid 4.10 H* Calcium Phosphorus Magnesium Direct Bilirubin AST ALT Alkaline Phosphatase Lactate Dehydrogenase Troponin T C-Reactive Protein Total Protein Albumin Prealbumin Triglycerides Cholesterol LDL Cholesterol Direct HDL Cholesterol Urine pH Urine WBC (Auto) Urine Creatinine Urine Total Protein Fluid Total Protein Vancomycin Trough Rheumatoid Factor Complement C4 Miscellaneous Test Crossmatch 09/27/16 09/27/16 09/27/16 11:23 15:00 18:15 WBC RBC Hgb Hct MCV MCH MCHC RDW Plt Count Lymph % (Auto) [place] % (Auto) Lymph # [place] # Baso # Seg Neutrophils % Seg Neuts % (Manual) Lymphocytes % (Manual) Monocytes % (Manual) Eosinophils % (Manual) Basophils % (Manual) Nucleated RBC % Seg Neutrophils # Seg Neutrophils # Man Lymphocytes # (Manual) Monocytes # (Manual) Eosinophils # (Manual) PT INR Fibrinogen dRVVT Confirm Interp Factor V Activity POC ABG pH 7.459 H POC ABG pCO2 27.1 L POC ABG pO2 140 H ABG pO2 ABG HCO3 ABG Base Excess ABG Hemoglobin Oxyhemoglobin Sodium Potassium Chloride Carbon Dioxide BUN Creatinine Glucose POC Glucose 114 H 127 H Lactic Acid Calcium Phosphorus Magnesium Direct Bilirubin AST ALT Alkaline Phosphatase Lactate Dehydrogenase Troponin T C-Reactive Protein Total Protein Albumin Prealbumin Triglycerides Cholesterol LDL Cholesterol Direct HDL Cholesterol Urine pH Urine WBC (Auto) Urine Creatinine Urine Total Protein Fluid Total Protein Vancomycin Trough Rheumatoid Factor Complement C4 Miscellaneous Test Crossmatch 09/27/16 09/27/16 09/28/16 Unknown Unknown 03:45 WBC RBC 2.49 L Hgb 6.8 L Hct 20.7 L MCV MCH 27 L MCHC RDW 22.1 H Plt Count Lymph % (Auto) [place] % (Auto) Lymph # [place] # Baso # Seg Neutrophils % Seg Neuts % (Manual) 32.0 L Lymphocytes % (Manual) 12.0 L Monocytes % (Manual) 11.0 H Eosinophils % (Manual) 10.0 H Basophils % (Manual) Nucleated RBC % Seg Neutrophils # Seg Neutrophils # Man Lymphocytes # (Manual) 1.0 L Monocytes # (Manual) 0.9 H Eosinophils # (Manual) 0.8 H PT INR Fibrinogen dRVVT Confirm Interp Factor V Activity POC ABG pH POC ABG pCO2 POC ABG pO2 ABG pO2 ABG HCO3 ABG Base Excess ABG Hemoglobin Oxyhemoglobin Sodium 135 L 135 L Potassium 3.5 L Chloride 93.6 L 94.4 L Carbon Dioxide 17 L 21 L BUN 45 H 28 H Creatinine 3.3 H 2.5 H Glucose 106 H POC Glucose Lactic Acid Calcium 7.3 L 7.1 L Phosphorus Magnesium Direct Bilirubin AST ALT Alkaline Phosphatase Lactate Dehydrogenase Troponin T C-Reactive Protein Total Protein Albumin Prealbumin Triglycerides Cholesterol LDL Cholesterol Direct HDL Cholesterol Urine pH Urine WBC (Auto) Urine Creatinine Urine Total Protein Fluid Total Protein Vancomycin Trough Rheumatoid Factor Complement C4 Miscellaneous Test Crossmatch 09/28/16 09/28/16 09/28/16 03:45 07:25 11:58 WBC 13.3 H RBC 3.01 L Hgb 8.4 L Hct 25.0 L MCV MCH MCHC RDW 20.5 H Plt Count 128 L Lymph % (Auto) [place] % (Auto) Lymph # [place] # Baso # Seg Neutrophils % Seg Neuts % (Manual) Lymphocytes % (Manual) 7.0 L Monocytes % (Manual) Eosinophils % (Manual) 6.0 H Basophils % (Manual) Nucleated RBC % Seg Neutrophils # Seg Neutrophils # Man Lymphocytes # (Manual) 0.9 L Monocytes # (Manual) Eosinophils # (Manual) 0.8 H PT INR Fibrinogen dRVVT Confirm Interp Factor V Activity POC ABG pH POC ABG pCO2 POC ABG pO2 ABG pO2 ABG HCO3 ABG Base Excess ABG Hemoglobin Oxyhemoglobin Sodium Potassium Chloride Carbon Dioxide BUN Creatinine Glucose POC Glucose 121 H Lactic Acid 4.50 H* Calcium Phosphorus Magnesium Direct Bilirubin AST ALT Alkaline Phosphatase Lactate Dehydrogenase Troponin T C-Reactive Protein Total Protein Albumin Prealbumin Triglycerides Cholesterol LDL Cholesterol Direct HDL Cholesterol Urine pH Urine WBC (Auto) Urine Creatinine Urine Total Protein Fluid Total Protein Vancomycin Trough Rheumatoid Factor Complement C4 Miscellaneous Test Crossmatch 09/29/16 09/29/16 09/29/16 06:45 06:45 06:45 WBC 14.9 H RBC 2.74 L Hgb 7.6 L Hct 23.2 L MCV MCH MCHC RDW 20.5 H Plt Count 81 L Lymph % (Auto) [place] % (Auto) Lymph # [place] # Baso # Seg Neutrophils % Seg Neuts % (Manual) 81.0 H Lymphocytes % (Manual) 4.0 L Monocytes % (Manual) Eosinophils % (Manual) Basophils % (Manual) Nucleated RBC % Seg Neutrophils # Seg Neutrophils # Man 12.1 H Lymphocytes # (Manual) 0.6 L Monocytes # (Manual) Eosinophils # (Manual) PT INR Fibrinogen dRVVT Confirm Interp Factor V Activity POC ABG pH POC ABG pCO2 POC ABG pO2 ABG pO2 ABG HCO3 ABG Base Excess ABG Hemoglobin Oxyhemoglobin Sodium 133 L Potassium 3.4 L Chloride 92.5 L Carbon Dioxide 21 L BUN 33 H Creatinine 3.0 H Glucose POC Glucose Lactic Acid Calcium 6.6 L Phosphorus Magnesium 1.40 L Direct Bilirubin 0.9 H AST ALT Alkaline Phosphatase Lactate Dehydrogenase Troponin T C-Reactive Protein Total Protein 4.3 L Albumin 1.3 L Prealbumin Triglycerides Cholesterol LDL Cholesterol Direct HDL Cholesterol Urine pH Urine WBC (Auto) Urine Creatinine Urine Total Protein Fluid Total Protein Vancomycin Trough Rheumatoid Factor Complement C4 Miscellaneous Test Crossmatch 09/29/16 09/29/16 09/30/16 17:52 20:12 00:07 WBC RBC Hgb Hct MCV MCH MCHC RDW Plt Count Lymph % (Auto) [place] % (Auto) Lymph # [place] # Baso # Seg Neutrophils % Seg Neuts % (Manual) Lymphocytes % (Manual) Monocytes % (Manual) Eosinophils % (Manual) Basophils % (Manual) Nucleated RBC % Seg Neutrophils # Seg Neutrophils # Man Lymphocytes # (Manual) Monocytes # (Manual) Eosinophils # (Manual) PT INR Fibrinogen dRVVT Confirm Interp Factor V Activity POC ABG pH POC ABG pCO2 POC ABG pO2 ABG pO2 ABG HCO3 ABG Base Excess ABG Hemoglobin Oxyhemoglobin Sodium Potassium Chloride Carbon Dioxide BUN Creatinine Glucose POC Glucose 50 L 51 L Lactic Acid Calcium Phosphorus Magnesium Direct Bilirubin AST ALT Alkaline Phosphatase Lactate Dehydrogenase Troponin T 0.204 H* C-Reactive Protein Total Protein Albumin Prealbumin Triglycerides Cholesterol 31 L LDL Cholesterol Direct 4 L HDL Cholesterol 3 L Urine pH Urine WBC (Auto) Urine Creatinine Urine Total Protein Fluid Total Protein Vancomycin Trough Rheumatoid Factor Complement C4 Miscellaneous Test Crossmatch 09/30/16 09/30/16 09/30/16 01:30 05:15 06:10 WBC RBC Hgb Hct MCV MCH MCHC RDW Plt Count Lymph % (Auto) [place] % (Auto) Lymph # [place] # Baso # Seg Neutrophils % Seg Neuts % (Manual) Lymphocytes % (Manual) Monocytes % (Manual) Eosinophils % (Manual) Basophils % (Manual) Nucleated RBC % Seg Neutrophils # Seg Neutrophils # Man Lymphocytes # (Manual) Monocytes # (Manual) Eosinophils # (Manual) PT INR Fibrinogen dRVVT Confirm Interp Factor V Activity POC ABG pH POC ABG pCO2 POC ABG pO2 ABG pO2 ABG HCO3 ABG Base Excess ABG Hemoglobin Oxyhemoglobin Sodium 133 L Potassium 3.2 L Chloride 93.2 L Carbon Dioxide 19 L BUN 36 H Creatinine 3.2 H Glucose 104 H POC Glucose 167 H 146 H Lactic Acid Calcium 6.4 L Phosphorus Magnesium 1.60 L Direct Bilirubin AST ALT Alkaline Phosphatase Lactate Dehydrogenase Troponin T C-Reactive Protein Total Protein Albumin Prealbumin Triglycerides Cholesterol LDL Cholesterol Direct HDL Cholesterol Urine pH Urine WBC (Auto) Urine Creatinine Urine Total Protein Fluid Total Protein Vancomycin Trough Rheumatoid Factor Complement C4 Miscellaneous Test Crossmatch 09/30/16 09/30/16 09/30/16 11:26 13:39 18:38 WBC RBC Hgb Hct MCV MCH MCHC RDW Plt Count Lymph % (Auto) [place] % (Auto) Lymph # [place] # Baso # Seg Neutrophils % Seg Neuts % (Manual) Lymphocytes % (Manual) Monocytes % (Manual) Eosinophils % (Manual) Basophils % (Manual) Nucleated RBC % Seg Neutrophils # Seg Neutrophils # Man Lymphocytes # (Manual) Monocytes # (Manual) Eosinophils # (Manual) PT INR Fibrinogen dRVVT Confirm Interp Factor V Activity POC ABG pH 7.479 H POC ABG pCO2 29.8 L POC ABG pO2 117 H ABG pO2 ABG HCO3 ABG Base Excess ABG Hemoglobin Oxyhemoglobin Sodium Potassium Chloride Carbon Dioxide BUN Creatinine Glucose POC Glucose 140 H 122 H Lactic Acid Calcium Phosphorus Magnesium Direct Bilirubin AST ALT Alkaline Phosphatase Lactate Dehydrogenase Troponin T C-Reactive Protein Total Protein Albumin Prealbumin Triglycerides Cholesterol LDL Cholesterol Direct HDL Cholesterol Urine pH Urine WBC (Auto) Urine Creatinine Urine Total Protein Fluid Total Protein Vancomycin Trough Rheumatoid Factor Complement C4 Miscellaneous Test Crossmatch 10/01/16 10/01/16 10/01/16 06:00 06:00 12:37 WBC 12.6 H RBC 2.75 L Hgb 7.3 L Hct 23.3 L MCV MCH 27 L MCHC RDW 20.6 H Plt Count 72 L Lymph % (Auto) [place] % (Auto) Lymph # [place] # Baso # Seg Neutrophils % Seg Neuts % (Manual) 31.0 L Lymphocytes % (Manual) 8.0 L Monocytes % (Manual) Eosinophils % (Manual) Basophils % (Manual) Nucleated RBC % 3.0 H Seg Neutrophils # Seg Neutrophils # Man Lymphocytes # (Manual) 1.0 L Monocytes # (Manual) Eosinophils # (Manual) PT INR Fibrinogen dRVVT Confirm Interp Factor V Activity POC ABG pH POC ABG pCO2 POC ABG pO2 ABG pO2 ABG HCO3 ABG Base Excess ABG Hemoglobin Oxyhemoglobin Sodium 127 L Potassium Chloride 86.8 L Carbon Dioxide 20 L BUN 42 H Creatinine 3.5 H Glucose POC Glucose 65 L Lactic Acid Calcium 7.0 L Phosphorus Magnesium Direct Bilirubin AST ALT Alkaline Phosphatase Lactate Dehydrogenase Troponin T C-Reactive Protein Total Protein Albumin Prealbumin Triglycerides Cholesterol LDL Cholesterol Direct HDL Cholesterol Urine pH Urine WBC (Auto) Urine Creatinine Urine Total Protein Fluid Total Protein Vancomycin Trough Rheumatoid Factor Complement C4 Miscellaneous Test Crossmatch 10/01/16 10/01/16 10/02/16 17:39 23:32 00:59 WBC RBC Hgb Hct MCV MCH MCHC RDW Plt Count Lymph % (Auto) [place] % (Auto) Lymph # [place] # Baso # Seg Neutrophils % Seg Neuts % (Manual) Lymphocytes % (Manual) Monocytes % (Manual) Eosinophils % (Manual) Basophils % (Manual) Nucleated RBC % Seg Neutrophils # Seg Neutrophils # Man Lymphocytes # (Manual) Monocytes # (Manual) Eosinophils # (Manual) PT INR Fibrinogen dRVVT Confirm Interp Factor V Activity POC ABG pH POC ABG pCO2 POC ABG pO2 ABG pO2 ABG HCO3 ABG Base Excess ABG Hemoglobin Oxyhemoglobin Sodium Potassium Chloride Carbon Dioxide BUN Creatinine Glucose POC Glucose 107 H 52 L 145 H Lactic Acid Calcium Phosphorus Magnesium Direct Bilirubin AST ALT Alkaline Phosphatase Lactate Dehydrogenase Troponin T C-Reactive Protein Total Protein Albumin Prealbumin Triglycerides Cholesterol LDL Cholesterol Direct HDL Cholesterol Urine pH Urine WBC (Auto) Urine Creatinine Urine Total Protein Fluid Total Protein Vancomycin Trough Rheumatoid Factor Complement C4 Miscellaneous Test Crossmatch 10/02/16 10/02/16 10/02/16 10:30 10:50 10:50 WBC 14.7 H RBC 2.76 L Hgb 7.4 L Hct 23.6 L MCV MCH 27 L MCHC RDW 20.2 H Plt Count 79 L Lymph % (Auto) [place] % (Auto) Lymph # [place] # Baso # Seg Neutrophils % Seg Neuts % (Manual) 86.0 H Lymphocytes % (Manual) 6.0 L Monocytes % (Manual) Eosinophils % (Manual) Basophils % (Manual) Nucleated RBC % Seg Neutrophils # Seg Neutrophils # Man 12.6 H Lymphocytes # (Manual) 0.9 L Monocytes # (Manual) Eosinophils # (Manual) PT INR Fibrinogen dRVVT Confirm Interp Factor V Activity POC ABG pH 7.486 H POC ABG pCO2 30.1 L POC ABG pO2 108 H ABG pO2 ABG HCO3 ABG Base Excess ABG Hemoglobin Oxyhemoglobin Sodium 131 L Potassium 3.4 L Chloride 89.9 L Carbon Dioxide BUN 26 H Creatinine 2.6 H Glucose POC Glucose Lactic Acid Calcium 7.0 L Phosphorus Magnesium Direct Bilirubin AST ALT Alkaline Phosphatase Lactate Dehydrogenase Troponin T C-Reactive Protein Total Protein Albumin Prealbumin Triglycerides Cholesterol LDL Cholesterol Direct HDL Cholesterol Urine pH Urine WBC (Auto) Urine Creatinine Urine Total Protein Fluid Total Protein Vancomycin Trough Rheumatoid Factor Complement C4 Miscellaneous Test Crossmatch 10/02/16 10/03/16 10/03/16 23:45 00:45 05:10 WBC 12.9 H RBC 2.77 L Hgb 7.6 L Hct 23.7 L MCV MCH 27 L MCHC RDW 19.7 H Plt Count 89 L Lymph % (Auto) [place] % (Auto) Lymph # [place] # Baso # Seg Neutrophils % Seg Neuts % (Manual) Lymphocytes % (Manual) 8.0 L Monocytes % (Manual) Eosinophils % (Manual) Basophils % (Manual) Nucleated RBC % Seg Neutrophils # 11.9 H Seg Neutrophils # Man Lymphocytes # (Manual) 1.0 L Monocytes # (Manual) Eosinophils # (Manual) PT INR Fibrinogen dRVVT Confirm Interp Factor V Activity POC ABG pH POC ABG pCO2 POC ABG pO2 ABG pO2 ABG HCO3 ABG Base Excess ABG Hemoglobin Oxyhemoglobin Sodium Potassium Chloride Carbon Dioxide BUN Creatinine Glucose POC Glucose 55 L 199 H Lactic Acid Calcium Phosphorus Magnesium Direct Bilirubin AST ALT Alkaline Phosphatase Lactate Dehydrogenase Troponin T C-Reactive Protein Total Protein Albumin Prealbumin Triglycerides Cholesterol LDL Cholesterol Direct HDL Cholesterol Urine pH Urine WBC (Auto) Urine Creatinine Urine Total Protein Fluid Total Protein Vancomycin Trough Rheumatoid Factor Complement C4 Miscellaneous Test Crossmatch 10/03/16 10/03/16 10/03/16 05:10 12:14 13:18 WBC RBC Hgb Hct MCV MCH MCHC RDW Plt Count Lymph % (Auto) [place] % (Auto) Lymph # [place] # Baso # Seg Neutrophils % Seg Neuts % (Manual) Lymphocytes % (Manual) Monocytes % (Manual) Eosinophils % (Manual) Basophils % (Manual) Nucleated RBC % Seg Neutrophils # Seg Neutrophils # Man Lymphocytes # (Manual) Monocytes # (Manual) Eosinophils # (Manual) PT INR Fibrinogen dRVVT Confirm Interp Factor V Activity POC ABG pH POC ABG pCO2 POC ABG pO2 ABG pO2 ABG HCO3 ABG Base Excess ABG Hemoglobin Oxyhemoglobin Sodium 129 L Potassium 3.3 L Chloride 88.8 L Carbon Dioxide 20 L BUN 29 H Creatinine 2.8 H Glucose POC Glucose 68 L 127 H Lactic Acid Calcium 7.2 L Phosphorus Magnesium Direct Bilirubin AST ALT Alkaline Phosphatase Lactate Dehydrogenase Troponin T C-Reactive Protein Total Protein Albumin Prealbumin Triglycerides Cholesterol LDL Cholesterol Direct HDL Cholesterol Urine pH Urine WBC (Auto) Urine Creatinine Urine Total Protein Fluid Total Protein Vancomycin Trough Rheumatoid Factor Complement C4 Miscellaneous Test Crossmatch 10/03/16 10/03/16 10/03/16 14:42 18:21 19:09 WBC RBC Hgb Hct MCV MCH MCHC RDW Plt Count Lymph % (Auto) [place] % (Auto) Lymph # [place] # Baso # Seg Neutrophils % Seg Neuts % (Manual) Lymphocytes % (Manual) Monocytes % (Manual) Eosinophils % (Manual) Basophils % (Manual) Nucleated RBC % Seg Neutrophils # Seg Neutrophils # Man Lymphocytes # (Manual) Monocytes # (Manual) Eosinophils # (Manual) PT INR Fibrinogen dRVVT Confirm Interp Factor V Activity POC ABG pH 7.499 H POC ABG pCO2 28.4 L POC ABG pO2 44 L ABG pO2 ABG HCO3 ABG Base Excess ABG Hemoglobin Oxyhemoglobin Sodium Potassium Chloride Carbon Dioxide BUN Creatinine Glucose POC Glucose 64 L 205 H Lactic Acid Calcium Phosphorus Magnesium Direct Bilirubin AST ALT Alkaline Phosphatase Lactate Dehydrogenase Troponin T C-Reactive Protein Total Protein Albumin Prealbumin Triglycerides Cholesterol LDL Cholesterol Direct HDL Cholesterol Urine pH Urine WBC (Auto) Urine Creatinine Urine Total Protein Fluid Total Protein Vancomycin Trough Rheumatoid Factor Complement C4 Miscellaneous Test Crossmatch 10/03/16 10/04/16 10/04/16 23:33 04:18 06:30 WBC RBC 2.54 L Hgb 7.1 L Hct 21.7 L MCV MCH MCHC RDW 19.5 H Plt Count 76 L Lymph % (Auto) [place] % (Auto) Lymph # [place] # Baso # Seg Neutrophils % Seg Neuts % (Manual) 88.0 H Lymphocytes % (Manual) 6.0 L Monocytes % (Manual) Eosinophils % (Manual) Basophils % (Manual) Nucleated RBC % Seg Neutrophils # Seg Neutrophils # Man 8.8 H Lymphocytes # (Manual) 0.6 L Monocytes # (Manual) Eosinophils # (Manual) PT INR Fibrinogen dRVVT Confirm Interp Factor V Activity POC ABG pH 7.461 H POC ABG pCO2 33.6 L POC ABG pO2 211 H ABG pO2 ABG HCO3 ABG Base Excess ABG Hemoglobin Oxyhemoglobin Sodium Potassium Chloride Carbon Dioxide BUN Creatinine Glucose POC Glucose 136 H Lactic Acid Calcium Phosphorus Magnesium Direct Bilirubin AST ALT Alkaline Phosphatase Lactate Dehydrogenase Troponin T C-Reactive Protein Total Protein Albumin Prealbumin Triglycerides Cholesterol LDL Cholesterol Direct HDL Cholesterol Urine pH Urine WBC (Auto) Urine Creatinine Urine Total Protein Fluid Total Protein Vancomycin Trough Rheumatoid Factor Complement C4 Miscellaneous Test Crossmatch 10/04/16 10/04/16 10/04/16 06:30 11:45 17:54 WBC RBC Hgb Hct MCV MCH MCHC RDW Plt Count Lymph % (Auto) [place] % (Auto) Lymph # [place] # Baso # Seg Neutrophils % Seg Neuts % (Manual) Lymphocytes % (Manual) Monocytes % (Manual) Eosinophils % (Manual) Basophils % (Manual) Nucleated RBC % Seg Neutrophils # Seg Neutrophils # Man Lymphocytes # (Manual) Monocytes # (Manual) Eosinophils # (Manual) PT INR Fibrinogen dRVVT Confirm Interp Factor V Activity POC ABG pH POC ABG pCO2 POC ABG pO2 ABG pO2 ABG HCO3 ABG Base Excess ABG Hemoglobin Oxyhemoglobin Sodium 128 L Potassium Chloride 87.4 L Carbon Dioxide 20 L BUN 34 H Creatinine 2.9 H Glucose 127 H POC Glucose 158 H 160 H Lactic Acid Calcium 7.4 L Phosphorus Magnesium Direct Bilirubin AST ALT Alkaline Phosphatase Lactate Dehydrogenase Troponin T C-Reactive Protein Total Protein Albumin Prealbumin Triglycerides Cholesterol LDL Cholesterol Direct HDL Cholesterol Urine pH Urine WBC (Auto) Urine Creatinine Urine Total Protein Fluid Total Protein Vancomycin Trough Rheumatoid Factor Complement C4 Miscellaneous Test Crossmatch 10/04/16 10/05/16 10/05/16 23:25 04:30 05:00 WBC RBC 2.64 L Hgb 7.5 L Hct 22.6 L MCV MCH MCHC RDW 19.3 H Plt Count 80 L Lymph % (Auto) [place] % (Auto) Lymph # [place] # Baso # Seg Neutrophils % Seg Neuts % (Manual) Lymphocytes % (Manual) 12.0 L Monocytes % (Manual) Eosinophils % (Manual) Basophils % (Manual) Nucleated RBC % Seg Neutrophils # Seg Neutrophils # Man Lymphocytes # (Manual) Monocytes # (Manual) Eosinophils # (Manual) PT INR Fibrinogen dRVVT Confirm Interp Factor V Activity POC ABG pH 7.475 H POC ABG pCO2 33.3 L POC ABG pO2 140 H ABG pO2 ABG HCO3 ABG Base Excess ABG Hemoglobin Oxyhemoglobin Sodium Potassium Chloride Carbon Dioxide BUN Creatinine Glucose POC Glucose 141 H Lactic Acid Calcium Phosphorus Magnesium Direct Bilirubin AST ALT Alkaline Phosphatase Lactate Dehydrogenase Troponin T C-Reactive Protein Total Protein Albumin Prealbumin Triglycerides Cholesterol LDL Cholesterol Direct HDL Cholesterol Urine pH Urine WBC (Auto) Urine Creatinine Urine Total Protein Fluid Total Protein Vancomycin Trough Rheumatoid Factor Complement C4 Miscellaneous Test Crossmatch 10/05/16 10/05/16 10/05/16 05:00 05:09 12:58 WBC RBC Hgb Hct MCV MCH MCHC RDW Plt Count Lymph % (Auto) [place] % (Auto) Lymph # [place] # Baso # Seg Neutrophils % Seg Neuts % (Manual) Lymphocytes % (Manual) Monocytes % (Manual) Eosinophils % (Manual) Basophils % (Manual) Nucleated RBC % Seg Neutrophils # Seg Neutrophils # Man Lymphocytes # (Manual) Monocytes # (Manual) Eosinophils # (Manual) PT INR Fibrinogen dRVVT Confirm Interp Factor V Activity POC ABG pH POC ABG pCO2 POC ABG pO2 ABG pO2 ABG HCO3 ABG Base Excess ABG Hemoglobin Oxyhemoglobin Sodium 131 L Potassium Chloride 94.0 L Carbon Dioxide 20 L BUN 22 H Creatinine 2.0 H Glucose 123 H POC Glucose 166 H 179 H Lactic Acid Calcium 7.7 L Phosphorus 2.20 L D Magnesium Direct Bilirubin AST ALT Alkaline Phosphatase Lactate Dehydrogenase Troponin T C-Reactive Protein Total Protein Albumin Prealbumin Triglycerides Cholesterol LDL Cholesterol Direct HDL Cholesterol Urine pH Urine WBC (Auto) Urine Creatinine Urine Total Protein Fluid Total Protein Vancomycin Trough Rheumatoid Factor Complement C4 Miscellaneous Test Crossmatch 10/05/16 10/05/16 10/05/16 15:50 18:53 23:12 WBC RBC Hgb Hct MCV MCH MCHC RDW Plt Count Lymph % (Auto) [place] % (Auto) Lymph # [place] # Baso # Seg Neutrophils % Seg Neuts % (Manual) Lymphocytes % (Manual) Monocytes % (Manual) Eosinophils % (Manual) Basophils % (Manual) Nucleated RBC % Seg Neutrophils # Seg Neutrophils # Man Lymphocytes # (Manual) Monocytes # (Manual) Eosinophils # (Manual) PT INR Fibrinogen dRVVT Confirm Interp Factor V Activity POC ABG pH POC ABG pCO2 POC ABG pO2 ABG pO2 ABG HCO3 ABG Base Excess ABG Hemoglobin Oxyhemoglobin Sodium Potassium Chloride Carbon Dioxide BUN Creatinine Glucose POC Glucose 150 H 164 H Lactic Acid Calcium Phosphorus Magnesium Direct Bilirubin AST ALT Alkaline Phosphatase Lactate Dehydrogenase Troponin T C-Reactive Protein Total Protein Albumin Prealbumin Triglycerides Cholesterol LDL Cholesterol Direct HDL Cholesterol Urine pH Urine WBC (Auto) Urine Creatinine Urine Total Protein Fluid Total Protein Vancomycin Trough Rheumatoid Factor Complement C4 Miscellaneous Test Crossmatch See Detail 10/06/16 10/06/16 10/06/16 03:50 03:50 04:53 WBC RBC 3.00 L Hgb 8.6 L Hct 25.8 L MCV MCH MCHC RDW 17.9 H Plt Count 65 L Lymph % (Auto) [place] % (Auto) Lymph # [place] # Baso # Seg Neutrophils % Seg Neuts % (Manual) 30.0 L Lymphocytes % (Manual) 5.0 L Monocytes % (Manual) Eosinophils % (Manual) Basophils % (Manual) Nucleated RBC % Seg Neutrophils # Seg Neutrophils # Man Lymphocytes # (Manual) 0.4 L Monocytes # (Manual) Eosinophils # (Manual) PT INR Fibrinogen dRVVT Confirm Interp Factor V Activity POC ABG pH 7.310 L POC ABG pCO2 49.0 H POC ABG pO2 ABG pO2 ABG HCO3 ABG Base Excess ABG Hemoglobin Oxyhemoglobin Sodium 133 L Potassium Chloride 95.9 L Carbon Dioxide BUN 26 H Creatinine 2.0 H Glucose 116 H POC Glucose Lactic Acid Calcium 7.8 L Phosphorus Magnesium Direct Bilirubin AST ALT Alkaline Phosphatase Lactate Dehydrogenase Troponin T C-Reactive Protein Total Protein Albumin Prealbumin Triglycerides Cholesterol LDL Cholesterol Direct HDL Cholesterol Urine pH Urine WBC (Auto) Urine Creatinine Urine Total Protein Fluid Total Protein Vancomycin Trough Rheumatoid Factor Complement C4 Miscellaneous Test Crossmatch 10/06/16 10/06/16 10/06/16 05:23 11:52 18:34 WBC RBC Hgb Hct MCV MCH MCHC RDW Plt Count Lymph % (Auto) [place] % (Auto) Lymph # [place] # Baso # Seg Neutrophils % Seg Neuts % (Manual) Lymphocytes % (Manual) Monocytes % (Manual) Eosinophils % (Manual) Basophils % (Manual) Nucleated RBC % Seg Neutrophils # Seg Neutrophils # Man Lymphocytes # (Manual) Monocytes # (Manual) Eosinophils # (Manual) PT INR Fibrinogen dRVVT Confirm Interp Factor V Activity POC ABG pH POC ABG pCO2 POC ABG pO2 ABG pO2 ABG HCO3 ABG Base Excess ABG Hemoglobin Oxyhemoglobin Sodium Potassium Chloride Carbon Dioxide BUN Creatinine Glucose POC Glucose 126 H 116 H 129 H Lactic Acid Calcium Phosphorus Magnesium Direct Bilirubin AST ALT Alkaline Phosphatase Lactate Dehydrogenase Troponin T C-Reactive Protein Total Protein Albumin Prealbumin Triglycerides Cholesterol LDL Cholesterol Direct HDL Cholesterol Urine pH Urine WBC (Auto) Urine Creatinine Urine Total Protein Fluid Total Protein Vancomycin Trough Rheumatoid Factor Complement C4 Miscellaneous Test Crossmatch 10/07/16 10/07/16 10/07/16 03:45 05:00 10:00 WBC 17.0 H RBC 2.68 L Hgb 7.3 L Hct 25.3 L MCV MCH 27 L MCHC 29 L RDW 19.6 H Plt Count 74 L Lymph % (Auto) [place] % (Auto) Lymph # [place] # Baso # Seg Neutrophils % Seg Neuts % (Manual) Lymphocytes % (Manual) 12.0 L Monocytes % (Manual) Eosinophils % (Manual) Basophils % (Manual) Nucleated RBC % 4.0 H Seg Neutrophils # Seg Neutrophils # Man 10.7 H Lymphocytes # (Manual) Monocytes # (Manual) Eosinophils # (Manual) PT INR Fibrinogen dRVVT Confirm Interp Factor V Activity POC ABG pH POC ABG pCO2 POC ABG pO2 ABG pO2 ABG HCO3 ABG Base Excess ABG Hemoglobin Oxyhemoglobin Sodium 130 L Potassium 3.2 L Chloride 93.9 L Carbon Dioxide 20 L BUN 44 H Creatinine 2.7 H Glucose 129 H POC Glucose Lactic Acid Calcium 7.4 L Phosphorus Magnesium Direct Bilirubin AST ALT 6 L Alkaline Phosphatase 195 H Lactate Dehydrogenase Troponin T C-Reactive Protein Total Protein 4.9 L Albumin 1.0 L Prealbumin Triglycerides Cholesterol LDL Cholesterol Direct HDL Cholesterol Urine pH Urine WBC (Auto) Urine Creatinine Urine Total Protein Fluid Total Protein Vancomycin Trough Rheumatoid Factor Complement C4 Miscellaneous Test Flexitest 1 H Crossmatch 10/07/16 10/07/16 10/07/16 10:00 11:24 18:10 WBC RBC Hgb Hct MCV MCH MCHC RDW Plt Count Lymph % (Auto) [place] % (Auto) Lymph # [place] # Baso # Seg Neutrophils % Seg Neuts % (Manual) Lymphocytes % (Manual) Monocytes % (Manual) Eosinophils % (Manual) Basophils % (Manual) Nucleated RBC % Seg Neutrophils # Seg Neutrophils # Man Lymphocytes # (Manual) Monocytes # (Manual) Eosinophils # (Manual) PT INR Fibrinogen dRVVT Confirm Interp Factor V Activity POC ABG pH POC ABG pCO2 POC ABG pO2 ABG pO2 ABG HCO3 ABG Base Excess ABG Hemoglobin Oxyhemoglobin Sodium Potassium Chloride Carbon Dioxide BUN Creatinine Glucose POC Glucose 116 H 130 H Lactic Acid Calcium Phosphorus Magnesium Direct Bilirubin AST ALT Alkaline Phosphatase Lactate Dehydrogenase Troponin T C-Reactive Protein 19.40 H Total Protein Albumin Prealbumin Triglycerides Cholesterol LDL Cholesterol Direct HDL Cholesterol Urine pH Urine WBC (Auto) Urine Creatinine Urine Total Protein Fluid Total Protein Vancomycin Trough Rheumatoid Factor Complement C4 Miscellaneous Test Crossmatch 10/07/16 10/08/16 10/08/16 18:30 00:00 04:00 WBC RBC Hgb Hct MCV MCH MCHC RDW Plt Count Lymph % (Auto) [place] % (Auto) Lymph # [place] # Baso # Seg Neutrophils % Seg Neuts % (Manual) Lymphocytes % (Manual) Monocytes % (Manual) Eosinophils % (Manual) Basophils % (Manual) Nucleated RBC % Seg Neutrophils # Seg Neutrophils # Man Lymphocytes # (Manual) Monocytes # (Manual) Eosinophils # (Manual) PT INR Fibrinogen dRVVT Confirm Interp Factor V Activity POC ABG pH POC ABG pCO2 POC ABG pO2 ABG pO2 ABG HCO3 ABG Base Excess ABG Hemoglobin Oxyhemoglobin Sodium 132 L Potassium 3.3 L Chloride 93.6 L Carbon Dioxide 17 L BUN 59 H Creatinine 2.7 H Glucose 121 H POC Glucose 122 H Lactic Acid Calcium 7.6 L Phosphorus Magnesium Direct Bilirubin AST ALT Alkaline Phosphatase Lactate Dehydrogenase Troponin T C-Reactive Protein Total Protein Albumin Prealbumin Triglycerides Cholesterol LDL Cholesterol Direct HDL Cholesterol Urine pH Urine WBC (Auto) > 182.0 H Urine Creatinine Urine Total Protein Fluid Total Protein Vancomycin Trough Rheumatoid Factor Complement C4 Miscellaneous Test Crossmatch 10/08/16 10/08/16 10/08/16 04:30 05:30 11:51 WBC RBC 5.15 H Hgb 14.4 H D Hct 44.5 H D MCV MCH MCHC RDW 19.5 H Plt Count 56 L Lymph % (Auto) [place] % (Auto) Lymph # [place] # Baso # Seg Neutrophils % Seg Neuts % (Manual) 24.0 L Lymphocytes % (Manual) 8.0 L Monocytes % (Manual) Eosinophils % (Manual) Basophils % (Manual) Nucleated RBC % 9.0 H Seg Neutrophils # Seg Neutrophils # Man Lymphocytes # (Manual) 0.7 L Monocytes # (Manual) Eosinophils # (Manual) PT INR Fibrinogen dRVVT Confirm Interp Factor V Activity POC ABG pH POC ABG pCO2 POC ABG pO2 ABG pO2 ABG HCO3 ABG Base Excess ABG Hemoglobin Oxyhemoglobin Sodium Potassium Chloride Carbon Dioxide BUN Creatinine Glucose POC Glucose 125 H 150 H Lactic Acid Calcium Phosphorus Magnesium Direct Bilirubin AST ALT Alkaline Phosphatase Lactate Dehydrogenase Troponin T C-Reactive Protein Total Protein Albumin Prealbumin Triglycerides Cholesterol LDL Cholesterol Direct HDL Cholesterol Urine pH Urine WBC (Auto) Urine Creatinine Urine Total Protein Fluid Total Protein Vancomycin Trough Rheumatoid Factor Complement C4 Miscellaneous Test Crossmatch 10/08/16 10/08/16 10/08/16 12:49 17:07 19:30 WBC RBC Hgb 7.1 L D Hct 22.4 L D MCV MCH MCHC RDW Plt Count Lymph % (Auto) [place] % (Auto) Lymph # [place] # Baso # Seg Neutrophils % Seg Neuts % (Manual) Lymphocytes % (Manual) Monocytes % (Manual) Eosinophils % (Manual) Basophils % (Manual) Nucleated RBC % Seg Neutrophils # Seg Neutrophils # Man Lymphocytes # (Manual) Monocytes # (Manual) Eosinophils # (Manual) PT INR Fibrinogen dRVVT Confirm Interp Factor V Activity POC ABG pH POC ABG pCO2 28.2 L POC ABG pO2 111 H ABG pO2 ABG HCO3 ABG Base Excess ABG Hemoglobin Oxyhemoglobin Sodium Potassium Chloride Carbon Dioxide BUN Creatinine Glucose POC Glucose 145 H Lactic Acid Calcium Phosphorus Magnesium Direct Bilirubin AST ALT Alkaline Phosphatase Lactate Dehydrogenase Troponin T C-Reactive Protein Total Protein Albumin Prealbumin Triglycerides Cholesterol LDL Cholesterol Direct HDL Cholesterol Urine pH Urine WBC (Auto) Urine Creatinine Urine Total Protein Fluid Total Protein Vancomycin Trough Rheumatoid Factor Complement C4 Miscellaneous Test Crossmatch 10/08/16 10/09/16 10/09/16 19:30 03:45 03:45 WBC 12.6 H RBC 2.36 L Hgb 6.7 L Hct 21.1 L MCV MCH MCHC RDW 19.5 H Plt Count 75 L Lymph % (Auto) [place] % (Auto) Lymph # [place] # Baso # Seg Neutrophils % Seg Neuts % (Manual) Lymphocytes % (Manual) Monocytes % (Manual) 10.0 H Eosinophils % (Manual) Basophils % (Manual) Nucleated RBC % 3.0 H Seg Neutrophils # Seg Neutrophils # Man Lymphocytes # (Manual) Monocytes # (Manual) 1.3 H Eosinophils # (Manual) PT 18.0 H INR 1.41 H Fibrinogen dRVVT Confirm Interp Factor V Activity POC ABG pH POC ABG pCO2 POC ABG pO2 ABG pO2 ABG HCO3 ABG Base Excess ABG Hemoglobin Oxyhemoglobin Sodium 135 L Potassium Chloride Carbon Dioxide 17 L BUN 81 H Creatinine 3.2 H Glucose 109 H POC Glucose Lactic Acid Calcium 7.4 L Phosphorus 4.60 H D Magnesium Direct Bilirubin AST ALT Alkaline Phosphatase Lactate Dehydrogenase Troponin T C-Reactive Protein Total Protein Albumin Prealbumin Triglycerides Cholesterol LDL Cholesterol Direct HDL Cholesterol Urine pH Urine WBC (Auto) Urine Creatinine Urine Total Protein Fluid Total Protein Vancomycin Trough Rheumatoid Factor Complement C4 Miscellaneous Test Crossmatch 10/09/16 10/09/16 10/09/16 03:45 05:14 07:20 WBC RBC Hgb Hct MCV MCH MCHC RDW Plt Count Lymph % (Auto) [place] % (Auto) Lymph # [place] # Baso # Seg Neutrophils % Seg Neuts % (Manual) Lymphocytes % (Manual) Monocytes % (Manual) Eosinophils % (Manual) Basophils % (Manual) Nucleated RBC % Seg Neutrophils # Seg Neutrophils # Man Lymphocytes # (Manual) Monocytes # (Manual) Eosinophils # (Manual) PT 19.0 H INR 1.51 H Fibrinogen dRVVT Confirm Interp Factor V Activity POC ABG pH POC ABG pCO2 POC ABG pO2 ABG pO2 ABG HCO3 ABG Base Excess ABG Hemoglobin Oxyhemoglobin Sodium Potassium Chloride Carbon Dioxide BUN Creatinine Glucose POC Glucose 151 H Lactic Acid Calcium Phosphorus Magnesium Direct Bilirubin AST ALT Alkaline Phosphatase Lactate Dehydrogenase Troponin T C-Reactive Protein Total Protein Albumin Prealbumin Triglycerides Cholesterol LDL Cholesterol Direct HDL Cholesterol Urine pH Urine WBC (Auto) Urine Creatinine Urine Total Protein Fluid Total Protein Vancomycin Trough Rheumatoid Factor Complement C4 Miscellaneous Test Crossmatch See Detail 10/09/16 10/09/16 10/09/16 11:46 16:20 16:43 WBC RBC Hgb 7.2 L Hct 22.2 L MCV MCH MCHC RDW Plt Count Lymph % (Auto) [place] % (Auto) Lymph # [place] # Baso # Seg Neutrophils % Seg Neuts % (Manual) Lymphocytes % (Manual) Monocytes % (Manual) Eosinophils % (Manual) Basophils % (Manual) Nucleated RBC % Seg Neutrophils # Seg Neutrophils # Man Lymphocytes # (Manual) Monocytes # (Manual) Eosinophils # (Manual) PT INR Fibrinogen dRVVT Confirm Interp Factor V Activity POC ABG pH POC ABG pCO2 POC ABG pO2 ABG pO2 ABG HCO3 ABG Base Excess ABG Hemoglobin Oxyhemoglobin Sodium Potassium Chloride Carbon Dioxide BUN Creatinine Glucose POC Glucose 133 H 141 H Lactic Acid Calcium Phosphorus Magnesium Direct Bilirubin AST ALT Alkaline Phosphatase Lactate Dehydrogenase Troponin T C-Reactive Protein Total Protein Albumin Prealbumin Triglycerides Cholesterol LDL Cholesterol Direct HDL Cholesterol Urine pH Urine WBC (Auto) Urine Creatinine Urine Total Protein Fluid Total Protein Vancomycin Trough Rheumatoid Factor Complement C4 Miscellaneous Test Crossmatch 10/10/16 10/10/16 10/10/16 05:00 05:00 11:19 WBC 18.5 H RBC 2.19 L Hgb 6.4 L Hct 19.6 L* MCV MCH MCHC RDW 19.3 H Plt Count 93 L Lymph % (Auto) [place] % (Auto) Lymph # [place] # Baso # Seg Neutrophils % Seg Neuts % (Manual) Lymphocytes % (Manual) 10.0 L Monocytes % (Manual) Eosinophils % (Manual) Basophils % (Manual) Nucleated RBC % 4.0 H Seg Neutrophils # Seg Neutrophils # Man 11.3 H Lymphocytes # (Manual) Monocytes # (Manual) Eosinophils # (Manual) PT INR Fibrinogen dRVVT Confirm Interp Factor V Activity POC ABG pH POC ABG pCO2 POC ABG pO2 ABG pO2 ABG HCO3 ABG Base Excess ABG Hemoglobin Oxyhemoglobin Sodium Potassium 5.7 H D Chloride Carbon Dioxide 16 L BUN 94 H Creatinine 3.1 H Glucose 131 H POC Glucose 153 H Lactic Acid Calcium 8.2 L Phosphorus 5.10 H Magnesium 2.40 H Direct Bilirubin 0.3 H AST ALT < 5 L Alkaline Phosphatase 319 H Lactate Dehydrogenase Troponin T C-Reactive Protein Total Protein 5.1 L Albumin 1.0 L Prealbumin Triglycerides Cholesterol LDL Cholesterol Direct HDL Cholesterol Urine pH Urine WBC (Auto) Urine Creatinine Urine Total Protein Fluid Total Protein Vancomycin Trough Rheumatoid Factor Complement C4 Miscellaneous Test Crossmatch 10/10/16 10/10/16 10/11/16 17:50 23:30 04:15 WBC RBC Hgb Hct MCV MCH MCHC RDW Plt Count Lymph % (Auto) [place] % (Auto) Lymph # [place] # Baso # Seg Neutrophils % Seg Neuts % (Manual) Lymphocytes % (Manual) Monocytes % (Manual) Eosinophils % (Manual) Basophils % (Manual) Nucleated RBC % Seg Neutrophils # Seg Neutrophils # Man Lymphocytes # (Manual) Monocytes # (Manual) Eosinophils # (Manual) PT INR Fibrinogen dRVVT Confirm Interp Factor V Activity POC ABG pH POC ABG pCO2 POC ABG pO2 ABG pO2 ABG HCO3 ABG Base Excess ABG Hemoglobin Oxyhemoglobin Sodium Potassium Chloride 96.4 L Carbon Dioxide 21 L BUN 57 H Creatinine 2.1 H Glucose 151 H POC Glucose 146 H 141 H Lactic Acid Calcium 8.3 L Phosphorus Magnesium Direct Bilirubin AST ALT Alkaline Phosphatase Lactate Dehydrogenase Troponin T C-Reactive Protein Total Protein Albumin Prealbumin Triglycerides Cholesterol LDL Cholesterol Direct HDL Cholesterol Urine pH Urine WBC (Auto) Urine Creatinine Urine Total Protein Fluid Total Protein Vancomycin Trough Rheumatoid Factor Complement C4 Miscellaneous Test Crossmatch 10/11/16 10/11/16 10/11/16 04:15 04:15 05:30 WBC 28.3 H RBC 3.12 L Hgb 9.3 L Hct 28.7 L D MCV MCH MCHC RDW 17.7 H Plt Count 128 L Lymph % (Auto) [place] % (Auto) Lymph # [place] # Baso # Seg Neutrophils % Seg Neuts % (Manual) Lymphocytes % (Manual) Monocytes % (Manual) Eosinophils % (Manual) Basophils % (Manual) Nucleated RBC % Seg Neutrophils # Seg Neutrophils # Man Lymphocytes # (Manual) Monocytes # (Manual) Eosinophils # (Manual) PT INR Fibrinogen dRVVT Confirm Interp Factor V Activity POC ABG pH POC ABG pCO2 POC ABG pO2 ABG pO2 ABG HCO3 ABG Base Excess ABG Hemoglobin Oxyhemoglobin Sodium Potassium Chloride Carbon Dioxide BUN Creatinine Glucose POC Glucose 167 H Lactic Acid Calcium Phosphorus Magnesium Direct Bilirubin AST ALT Alkaline Phosphatase Lactate Dehydrogenase Troponin T C-Reactive Protein 15.80 H Total Protein Albumin Prealbumin Triglycerides Cholesterol LDL Cholesterol Direct HDL Cholesterol Urine pH Urine WBC (Auto) Urine Creatinine Urine Total Protein Fluid Total Protein Vancomycin Trough Rheumatoid Factor Complement C4 Miscellaneous Test Crossmatch 10/11/16 10/11/16 10/11/16 11:40 15:49 23:57 WBC RBC Hgb Hct MCV MCH MCHC RDW Plt Count Lymph % (Auto) [place] % (Auto) Lymph # [place] # Baso # Seg Neutrophils % Seg Neuts % (Manual) Lymphocytes % (Manual) Monocytes % (Manual) Eosinophils % (Manual) Basophils % (Manual) Nucleated RBC % Seg Neutrophils # Seg Neutrophils # Man Lymphocytes # (Manual) Monocytes # (Manual) Eosinophils # (Manual) PT INR Fibrinogen dRVVT Confirm Interp Factor V Activity POC ABG pH POC ABG pCO2 POC ABG pO2 ABG pO2 ABG HCO3 ABG Base Excess ABG Hemoglobin Oxyhemoglobin Sodium Potassium Chloride Carbon Dioxide BUN Creatinine Glucose POC Glucose 139 H 168 H 161 H Lactic Acid Calcium Phosphorus Magnesium Direct Bilirubin AST ALT Alkaline Phosphatase Lactate Dehydrogenase Troponin T C-Reactive Protein Total Protein Albumin Prealbumin Triglycerides Cholesterol LDL Cholesterol Direct HDL Cholesterol Urine pH Urine WBC (Auto) Urine Creatinine Urine Total Protein Fluid Total Protein Vancomycin Trough Rheumatoid Factor Complement C4 Miscellaneous Test Crossmatch 10/12/16 10/12/16 10/12/16 04:40 04:40 05:44 WBC 22.5 H RBC 2.88 L Hgb 8.8 L Hct 26.8 L MCV MCH MCHC RDW 17.8 H Plt Count Lymph % (Auto) [place] % (Auto) Lymph # [place] # Baso # Seg Neutrophils % Seg Neuts % (Manual) Lymphocytes % (Manual) Monocytes % (Manual) Eosinophils % (Manual) Basophils % (Manual) Nucleated RBC % Seg Neutrophils # Seg Neutrophils # Man Lymphocytes # (Manual) Monocytes # (Manual) Eosinophils # (Manual) PT INR Fibrinogen dRVVT Confirm Interp Factor V Activity POC ABG pH POC ABG pCO2 POC ABG pO2 ABG pO2 ABG HCO3 ABG Base Excess ABG Hemoglobin Oxyhemoglobin Sodium 134 L Potassium Chloride 93.0 L Carbon Dioxide BUN 74 H Creatinine 2.5 H Glucose 137 H POC Glucose 158 H Lactic Acid Calcium 8.2 L Phosphorus Magnesium Direct Bilirubin AST ALT Alkaline Phosphatase Lactate Dehydrogenase Troponin T C-Reactive Protein Total Protein Albumin Prealbumin Triglycerides Cholesterol LDL Cholesterol Direct HDL Cholesterol Urine pH Urine WBC (Auto) Urine Creatinine Urine Total Protein Fluid Total Protein Vancomycin Trough Rheumatoid Factor Complement C4 Miscellaneous Test Crossmatch 10/12/16 10/12/16 10/12/16 12:27 18:18 23:46 WBC RBC Hgb Hct MCV MCH MCHC RDW Plt Count Lymph % (Auto) [place] % (Auto) Lymph # [place] # Baso # Seg Neutrophils % Seg Neuts % (Manual) Lymphocytes % (Manual) Monocytes % (Manual) Eosinophils % (Manual) Basophils % (Manual) Nucleated RBC % Seg Neutrophils # Seg Neutrophils # Man Lymphocytes # (Manual) Monocytes # (Manual) Eosinophils # (Manual) PT INR Fibrinogen dRVVT Confirm Interp Factor V Activity POC ABG pH POC ABG pCO2 POC ABG pO2 ABG pO2 ABG HCO3 ABG Base Excess ABG Hemoglobin Oxyhemoglobin Sodium Potassium Chloride Carbon Dioxide BUN Creatinine Glucose POC Glucose 153 H 140 H 150 H Lactic Acid Calcium Phosphorus Magnesium Direct Bilirubin AST ALT Alkaline Phosphatase Lactate Dehydrogenase Troponin T C-Reactive Protein Total Protein Albumin Prealbumin Triglycerides Cholesterol LDL Cholesterol Direct HDL Cholesterol Urine pH Urine WBC (Auto) Urine Creatinine Urine Total Protein Fluid Total Protein Vancomycin Trough Rheumatoid Factor Complement C4 Miscellaneous Test Crossmatch 10/13/16 10/13/16 10/13/16 06:22 09:20 12:29 WBC RBC Hgb Hct MCV MCH MCHC RDW Plt Count Lymph % (Auto) [place] % (Auto) Lymph # [place] # Baso # Seg Neutrophils % Seg Neuts % (Manual) Lymphocytes % (Manual) Monocytes % (Manual) Eosinophils % (Manual) Basophils % (Manual) Nucleated RBC % Seg Neutrophils # Seg Neutrophils # Man Lymphocytes # (Manual) Monocytes # (Manual) Eosinophils # (Manual) PT INR Fibrinogen dRVVT Confirm Interp Factor V Activity POC ABG pH POC ABG pCO2 POC ABG pO2 ABG pO2 ABG HCO3 ABG Base Excess ABG Hemoglobin Oxyhemoglobin Sodium Potassium Chloride Carbon Dioxide BUN Creatinine Glucose POC Glucose 165 H 193 H Lactic Acid Calcium Phosphorus Magnesium Direct Bilirubin AST ALT Alkaline Phosphatase Lactate Dehydrogenase Troponin T C-Reactive Protein Total Protein Albumin Prealbumin Triglycerides Cholesterol LDL Cholesterol Direct HDL Cholesterol Urine pH Urine WBC (Auto) Urine Creatinine Urine Total Protein Fluid Total Protein Vancomycin Trough Rheumatoid Factor Complement C4 Miscellaneous Test Flexitest 1 H Crossmatch 10/13/16 10/13/16 10/13/16 18:09 Unknown Unknown WBC 23.4 H RBC 2.83 L Hgb 8.7 L Hct 26.1 L MCV MCH MCHC RDW 18.1 H Plt Count Lymph % (Auto) [place] % (Auto) Lymph # [place] # Baso # Seg Neutrophils % Seg Neuts % (Manual) Lymphocytes % (Manual) Monocytes % (Manual) Eosinophils % (Manual) Basophils % (Manual) Nucleated RBC % Seg Neutrophils # Seg Neutrophils # Man Lymphocytes # (Manual) Monocytes # (Manual) Eosinophils # (Manual) PT INR Fibrinogen dRVVT Confirm Interp Factor V Activity POC ABG pH POC ABG pCO2 POC ABG pO2 ABG pO2 ABG HCO3 ABG Base Excess ABG Hemoglobin Oxyhemoglobin Sodium Potassium Chloride 95.8 L Carbon Dioxide BUN 82 H Creatinine 2.6 H Glucose 152 H POC Glucose 166 H Lactic Acid Calcium Phosphorus Magnesium Direct Bilirubin AST ALT Alkaline Phosphatase Lactate Dehydrogenase Troponin T C-Reactive Protein Total Protein Albumin Prealbumin Triglycerides Cholesterol LDL Cholesterol Direct HDL Cholesterol Urine pH Urine WBC (Auto) Urine Creatinine Urine Total Protein Fluid Total Protein Vancomycin Trough Rheumatoid Factor Complement C4 Miscellaneous Test Crossmatch 10/14/16 10/14/16 10/14/16 05:38 06:35 08:10 WBC 20.7 H RBC 2.81 L Hgb 8.4 L Hct 27.2 L MCV MCH MCHC RDW 19.4 H Plt Count Lymph % (Auto) [place] % (Auto) Lymph # [place] # Baso # Seg Neutrophils % Seg Neuts % (Manual) Lymphocytes % (Manual) Monocytes % (Manual) Eosinophils % (Manual) Basophils % (Manual) Nucleated RBC % Seg Neutrophils # Seg Neutrophils # Man Lymphocytes # (Manual) Monocytes # (Manual) Eosinophils # (Manual) PT INR Fibrinogen dRVVT Confirm Interp Factor V Activity POC ABG pH POC ABG pCO2 POC ABG pO2 ABG pO2 ABG HCO3 ABG Base Excess ABG Hemoglobin Oxyhemoglobin Sodium Potassium Chloride Carbon Dioxide BUN 58 H Creatinine 1.9 H Glucose 169 H POC Glucose 195 H Lactic Acid Calcium Phosphorus Magnesium Direct Bilirubin AST ALT Alkaline Phosphatase Lactate Dehydrogenase Troponin T C-Reactive Protein Total Protein Albumin Prealbumin Triglycerides Cholesterol LDL Cholesterol Direct HDL Cholesterol Urine pH Urine WBC (Auto) Urine Creatinine Urine Total Protein Fluid Total Protein Vancomycin Trough Rheumatoid Factor Complement C4 Miscellaneous Test Crossmatch 10/14/16 10/14/16 10/14/16 11:44 17:13 23:28 WBC RBC Hgb Hct MCV MCH MCHC RDW Plt Count Lymph % (Auto) [place] % (Auto) Lymph # [place] # Baso # Seg Neutrophils % Seg Neuts % (Manual) Lymphocytes % (Manual) Monocytes % (Manual) Eosinophils % (Manual) Basophils % (Manual) Nucleated RBC % Seg Neutrophils # Seg Neutrophils # Man Lymphocytes # (Manual) Monocytes # (Manual) Eosinophils # (Manual) PT INR Fibrinogen dRVVT Confirm Interp Factor V Activity POC ABG pH POC ABG pCO2 POC ABG pO2 ABG pO2 ABG HCO3 ABG Base Excess ABG Hemoglobin Oxyhemoglobin Sodium Potassium Chloride Carbon Dioxide BUN Creatinine Glucose POC Glucose 174 H 121 H 151 H Lactic Acid Calcium Phosphorus Magnesium Direct Bilirubin AST ALT Alkaline Phosphatase Lactate Dehydrogenase Troponin T C-Reactive Protein Total Protein Albumin Prealbumin Triglycerides Cholesterol LDL Cholesterol Direct HDL Cholesterol Urine pH Urine WBC (Auto) Urine Creatinine Urine Total Protein Fluid Total Protein Vancomycin Trough Rheumatoid Factor Complement C4 Miscellaneous Test Crossmatch 10/15/16 10/15/16 10/15/16 05:06 12:26 17:48 WBC RBC Hgb Hct MCV MCH MCHC RDW Plt Count Lymph % (Auto) [place] % (Auto) Lymph # [place] # Baso # Seg Neutrophils % Seg Neuts % (Manual) Lymphocytes % (Manual) Monocytes % (Manual) Eosinophils % (Manual) Basophils % (Manual) Nucleated RBC % Seg Neutrophils # Seg Neutrophils # Man Lymphocytes # (Manual) Monocytes # (Manual) Eosinophils # (Manual) PT INR Fibrinogen dRVVT Confirm Interp Factor V Activity POC ABG pH POC ABG pCO2 POC ABG pO2 ABG pO2 ABG HCO3 ABG Base Excess ABG Hemoglobin Oxyhemoglobin Sodium Potassium Chloride Carbon Dioxide BUN Creatinine Glucose POC Glucose 151 H 149 H 153 H Lactic Acid Calcium Phosphorus Magnesium Direct Bilirubin AST ALT Alkaline Phosphatase Lactate Dehydrogenase Troponin T C-Reactive Protein Total Protein Albumin Prealbumin Triglycerides Cholesterol LDL Cholesterol Direct HDL Cholesterol Urine pH Urine WBC (Auto) Urine Creatinine Urine Total Protein Fluid Total Protein Vancomycin Trough Rheumatoid Factor Complement C4 Miscellaneous Test Crossmatch 10/15/16 10/15/16 10/16/16 Unknown Unknown 00:02 WBC 23.4 H RBC 2.78 L Hgb 8.5 L Hct 25.7 L MCV MCH MCHC RDW 18.7 H Plt Count Lymph % (Auto) [place] % (Auto) Lymph # [place] # Baso # Seg Neutrophils % Seg Neuts % (Manual) Lymphocytes % (Manual) Monocytes % (Manual) Eosinophils % (Manual) Basophils % (Manual) Nucleated RBC % Seg Neutrophils # Seg Neutrophils # Man Lymphocytes # (Manual) Monocytes # (Manual) Eosinophils # (Manual) PT INR Fibrinogen dRVVT Confirm Interp Factor V Activity POC ABG pH POC ABG pCO2 POC ABG pO2 ABG pO2 ABG HCO3 ABG Base Excess ABG Hemoglobin Oxyhemoglobin Sodium Potassium Chloride Carbon Dioxide BUN 73 H Creatinine 2.3 H Glucose 120 H POC Glucose 137 H Lactic Acid Calcium Phosphorus Magnesium Direct Bilirubin AST ALT Alkaline Phosphatase Lactate Dehydrogenase Troponin T C-Reactive Protein Total Protein Albumin Prealbumin Triglycerides Cholesterol LDL Cholesterol Direct HDL Cholesterol Urine pH Urine WBC (Auto) Urine Creatinine Urine Total Protein Fluid Total Protein Vancomycin Trough Rheumatoid Factor Complement C4 Miscellaneous Test Crossmatch 10/16/16 10/16/16 10/16/16 05:44 06:25 06:25 WBC 22.5 H RBC 2.76 L Hgb 8.3 L Hct 25.2 L MCV MCH MCHC RDW 18.3 H Plt Count Lymph % (Auto) [place] % (Auto) Lymph # [place] # Baso # Seg Neutrophils % Seg Neuts % (Manual) Lymphocytes % (Manual) Monocytes % (Manual) Eosinophils % (Manual) Basophils % (Manual) Nucleated RBC % Seg Neutrophils # Seg Neutrophils # Man Lymphocytes # (Manual) Monocytes # (Manual) Eosinophils # (Manual) PT INR Fibrinogen dRVVT Confirm Interp Factor V Activity POC ABG pH POC ABG pCO2 POC ABG pO2 ABG pO2 ABG HCO3 ABG Base Excess ABG Hemoglobin Oxyhemoglobin Sodium Potassium Chloride Carbon Dioxide BUN 92 H Creatinine 3.0 H Glucose 138 H POC Glucose 110 H Lactic Acid Calcium Phosphorus Magnesium Direct Bilirubin AST ALT Alkaline Phosphatase Lactate Dehydrogenase Troponin T C-Reactive Protein Total Protein Albumin Prealbumin Triglycerides Cholesterol LDL Cholesterol Direct HDL Cholesterol Urine pH Urine WBC (Auto) Urine Creatinine Urine Total Protein Fluid Total Protein Vancomycin Trough Rheumatoid Factor Complement C4 Miscellaneous Test Crossmatch 10/16/16 10/16/16 10/16/16 11:27 11:48 17:36 WBC RBC Hgb Hct MCV MCH MCHC RDW Plt Count Lymph % (Auto) [place] % (Auto) Lymph # [place] # Baso # Seg Neutrophils % Seg Neuts % (Manual) Lymphocytes % (Manual) Monocytes % (Manual) Eosinophils % (Manual) Basophils % (Manual) Nucleated RBC % Seg Neutrophils # Seg Neutrophils # Man Lymphocytes # (Manual) Monocytes # (Manual) Eosinophils # (Manual) PT INR Fibrinogen dRVVT Confirm Interp Factor V Activity POC ABG pH 7.582 H POC ABG pCO2 27.4 L POC ABG pO2 110 H ABG pO2 ABG HCO3 ABG Base Excess ABG Hemoglobin Oxyhemoglobin Sodium Potassium Chloride Carbon Dioxide BUN Creatinine Glucose POC Glucose 121 H 133 H Lactic Acid Calcium Phosphorus Magnesium Direct Bilirubin AST ALT Alkaline Phosphatase Lactate Dehydrogenase Troponin T C-Reactive Protein Total Protein Albumin Prealbumin Triglycerides Cholesterol LDL Cholesterol Direct HDL Cholesterol Urine pH Urine WBC (Auto) Urine Creatinine Urine Total Protein Fluid Total Protein Vancomycin Trough Rheumatoid Factor Complement C4 Miscellaneous Test Crossmatch 10/16/16 10/17/16 10/17/16 20:48 04:24 04:24 WBC 21.4 H RBC 2.72 L Hgb 8.0 L Hct 25.2 L MCV MCH MCHC RDW 18.0 H Plt Count Lymph % (Auto) [place] % (Auto) Lymph # [place] # Baso # Seg Neutrophils % Seg Neuts % (Manual) Lymphocytes % (Manual) Monocytes % (Manual) Eosinophils % (Manual) Basophils % (Manual) Nucleated RBC % Seg Neutrophils # Seg Neutrophils # Man Lymphocytes # (Manual) Monocytes # (Manual) Eosinophils # (Manual) PT INR Fibrinogen dRVVT Confirm Interp Factor V Activity POC ABG pH 7.561 H POC ABG pCO2 24.4 L POC ABG pO2 77 L ABG pO2 ABG HCO3 ABG Base Excess ABG Hemoglobin Oxyhemoglobin Sodium 148 H Potassium Chloride Carbon Dioxide BUN 104 H Creatinine 3.0 H Glucose 149 H POC Glucose Lactic Acid Calcium Phosphorus Magnesium Direct Bilirubin AST ALT Alkaline Phosphatase 138 H Lactate Dehydrogenase Troponin T C-Reactive Protein Total Protein 6.2 L Albumin 1.5 L Prealbumin Triglycerides Cholesterol LDL Cholesterol Direct HDL Cholesterol Urine pH Urine WBC (Auto) Urine Creatinine Urine Total Protein Fluid Total Protein Vancomycin Trough Rheumatoid Factor Complement C4 Miscellaneous Test Crossmatch 10/17/16 10/17/16 10/17/16 06:02 12:17 17:14 WBC RBC Hgb Hct MCV MCH MCHC RDW Plt Count Lymph % (Auto) [place] % (Auto) Lymph # [place] # Baso # Seg Neutrophils % Seg Neuts % (Manual) Lymphocytes % (Manual) Monocytes % (Manual) Eosinophils % (Manual) Basophils % (Manual) Nucleated RBC % Seg Neutrophils # Seg Neutrophils # Man Lymphocytes # (Manual) Monocytes # (Manual) Eosinophils # (Manual) PT INR Fibrinogen dRVVT Confirm Interp Factor V Activity POC ABG pH POC ABG pCO2 POC ABG pO2 ABG pO2 ABG HCO3 ABG Base Excess ABG Hemoglobin Oxyhemoglobin Sodium Potassium Chloride Carbon Dioxide BUN Creatinine Glucose POC Glucose 170 H 167 H 126 H Lactic Acid Calcium Phosphorus Magnesium Direct Bilirubin AST ALT Alkaline Phosphatase Lactate Dehydrogenase Troponin T C-Reactive Protein Total Protein Albumin Prealbumin Triglycerides Cholesterol LDL Cholesterol Direct HDL Cholesterol Urine pH Urine WBC (Auto) Urine Creatinine Urine Total Protein Fluid Total Protein Vancomycin Trough Rheumatoid Factor Complement C4 Miscellaneous Test Crossmatch 10/17/16 10/18/16 10/18/16 23:17 04:00 04:00 WBC 20.7 H RBC 2.47 L Hgb 7.4 L Hct 22.9 L MCV MCH MCHC RDW 17.5 H Plt Count Lymph % (Auto) [place] % (Auto) Lymph # [place] # Baso # Seg Neutrophils % Seg Neuts % (Manual) Lymphocytes % (Manual) Monocytes % (Manual) Eosinophils % (Manual) Basophils % (Manual) Nucleated RBC % Seg Neutrophils # Seg Neutrophils # Man Lymphocytes # (Manual) Monocytes # (Manual) Eosinophils # (Manual) PT INR Fibrinogen dRVVT Confirm Interp Factor V Activity POC ABG pH POC ABG pCO2 POC ABG pO2 ABG pO2 ABG HCO3 ABG Base Excess ABG Hemoglobin Oxyhemoglobin Sodium 149 H Potassium Chloride 107.9 H Carbon Dioxide 20 L BUN 117 H Creatinine 3.2 H Glucose 119 H POC Glucose 121 H Lactic Acid Calcium Phosphorus Magnesium Direct Bilirubin AST ALT Alkaline Phosphatase Lactate Dehydrogenase Troponin T C-Reactive Protein Total Protein Albumin Prealbumin Triglycerides Cholesterol LDL Cholesterol Direct HDL Cholesterol Urine pH Urine WBC (Auto) Urine Creatinine Urine Total Protein Fluid Total Protein Vancomycin Trough Rheumatoid Factor Complement C4 Miscellaneous Test Crossmatch 10/18/16 10/18/16 10/18/16 05:23 10:46 17:30 WBC RBC Hgb Hct MCV MCH MCHC RDW Plt Count Lymph % (Auto) [place] % (Auto) Lymph # [place] # Baso # Seg Neutrophils % Seg Neuts % (Manual) Lymphocytes % (Manual) Monocytes % (Manual) Eosinophils % (Manual) Basophils % (Manual) Nucleated RBC % Seg Neutrophils # Seg Neutrophils # Man Lymphocytes # (Manual) Monocytes # (Manual) Eosinophils # (Manual) PT INR Fibrinogen dRVVT Confirm Interp Factor V Activity POC ABG pH POC ABG pCO2 POC ABG pO2 ABG pO2 ABG HCO3 ABG Base Excess ABG Hemoglobin Oxyhemoglobin Sodium Potassium Chloride Carbon Dioxide BUN Creatinine Glucose POC Glucose 119 H 155 H 124 H Lactic Acid Calcium Phosphorus Magnesium Direct Bilirubin AST ALT Alkaline Phosphatase Lactate Dehydrogenase Troponin T C-Reactive Protein Total Protein Albumin Prealbumin Triglycerides Cholesterol LDL Cholesterol Direct HDL Cholesterol Urine pH Urine WBC (Auto) Urine Creatinine Urine Total Protein Fluid Total Protein Vancomycin Trough Rheumatoid Factor Complement C4 Miscellaneous Test Crossmatch 10/19/16 10/19/16 10/19/16 04:00 04:00 05:25 WBC 17.4 H RBC 2.54 L Hgb 7.7 L Hct 23.6 L MCV MCH MCHC RDW 17.3 H Plt Count Lymph % (Auto) [place] % (Auto) Lymph # [place] # Baso # Seg Neutrophils % Seg Neuts % (Manual) Lymphocytes % (Manual) Monocytes % (Manual) Eosinophils % (Manual) Basophils % (Manual) Nucleated RBC % Seg Neutrophils # Seg Neutrophils # Man Lymphocytes # (Manual) Monocytes # (Manual) Eosinophils # (Manual) PT INR Fibrinogen dRVVT Confirm Interp Factor V Activity POC ABG pH POC ABG pCO2 POC ABG pO2 ABG pO2 ABG HCO3 ABG Base Excess ABG Hemoglobin Oxyhemoglobin Sodium Potassium Chloride Carbon Dioxide BUN 72 H Creatinine 2.1 H Glucose 116 H POC Glucose 119 H Lactic Acid Calcium Phosphorus Magnesium Direct Bilirubin AST ALT Alkaline Phosphatase Lactate Dehydrogenase Troponin T C-Reactive Protein Total Protein Albumin Prealbumin Triglycerides Cholesterol LDL Cholesterol Direct HDL Cholesterol Urine pH Urine WBC (Auto) Urine Creatinine Urine Total Protein Fluid Total Protein Vancomycin Trough Rheumatoid Factor Complement C4 Miscellaneous Test Crossmatch 10/19/16 10/19/16 10/20/16 11:46 23:59 06:00 WBC RBC Hgb Hct MCV MCH MCHC RDW Plt Count Lymph % (Auto) [place] % (Auto) Lymph # [place] # Baso # Seg Neutrophils % Seg Neuts % (Manual) Lymphocytes % (Manual) Monocytes % (Manual) Eosinophils % (Manual) Basophils % (Manual) Nucleated RBC % Seg Neutrophils # Seg Neutrophils # Man Lymphocytes # (Manual) Monocytes # (Manual) Eosinophils # (Manual) PT INR Fibrinogen dRVVT Confirm Interp Factor V Activity POC ABG pH POC ABG pCO2 POC ABG pO2 ABG pO2 ABG HCO3 ABG Base Excess ABG Hemoglobin Oxyhemoglobin Sodium Potassium Chloride Carbon Dioxide 17 L BUN 94 H Creatinine 2.7 H Glucose POC Glucose 116 H 117 H Lactic Acid Calcium Phosphorus Magnesium Direct Bilirubin AST ALT Alkaline Phosphatase Lactate Dehydrogenase Troponin T C-Reactive Protein Total Protein Albumin Prealbumin Triglycerides Cholesterol LDL Cholesterol Direct HDL Cholesterol Urine pH Urine WBC (Auto) Urine Creatinine Urine Total Protein Fluid Total Protein Vancomycin Trough Rheumatoid Factor Complement C4 Miscellaneous Test Crossmatch 10/20/16 10/20/16 10/20/16 06:00 11:49 16:00 WBC 19.7 H RBC 2.51 L Hgb 7.7 L Hct 23.5 L MCV MCH MCHC RDW 17.5 H Plt Count Lymph % (Auto) [place] % (Auto) Lymph # [place] # Baso # Seg Neutrophils % Seg Neuts % (Manual) Lymphocytes % (Manual) Monocytes % (Manual) Eosinophils % (Manual) Basophils % (Manual) Nucleated RBC % Seg Neutrophils # Seg Neutrophils # Man Lymphocytes # (Manual) Monocytes # (Manual) Eosinophils # (Manual) PT INR Fibrinogen dRVVT Confirm Interp Factor V Activity POC ABG pH POC ABG pCO2 POC ABG pO2 ABG pO2 ABG HCO3 ABG Base Excess ABG Hemoglobin Oxyhemoglobin Sodium Potassium Chloride Carbon Dioxide BUN Creatinine Glucose POC Glucose 117 H Lactic Acid Calcium Phosphorus Magnesium Direct Bilirubin AST ALT Alkaline Phosphatase Lactate Dehydrogenase Troponin T C-Reactive Protein Total Protein Albumin Prealbumin Triglycerides Cholesterol LDL Cholesterol Direct HDL Cholesterol Urine pH Urine WBC (Auto) Urine Creatinine Urine Total Protein Fluid Total Protein Vancomycin Trough Rheumatoid Factor Complement C4 Miscellaneous Test Flexitest 1 H Crossmatch 10/20/16 10/20/16 10/21/16 18:36 23:39 04:00 WBC RBC Hgb Hct MCV MCH MCHC RDW Plt Count Lymph % (Auto) [place] % (Auto) Lymph # [place] # Baso # Seg Neutrophils % Seg Neuts % (Manual) Lymphocytes % (Manual) Monocytes % (Manual) Eosinophils % (Manual) Basophils % (Manual) Nucleated RBC % Seg Neutrophils # Seg Neutrophils # Man Lymphocytes # (Manual) Monocytes # (Manual) Eosinophils # (Manual) PT INR Fibrinogen dRVVT Confirm Interp Factor V Activity POC ABG pH POC ABG pCO2 POC ABG pO2 ABG pO2 ABG HCO3 ABG Base Excess ABG Hemoglobin Oxyhemoglobin Sodium Potassium 5.4 H D Chloride Carbon Dioxide 15 L BUN 110 H Creatinine 3.0 H Glucose POC Glucose 127 H 114 H Lactic Acid Calcium Phosphorus Magnesium Direct Bilirubin AST ALT Alkaline Phosphatase Lactate Dehydrogenase Troponin T C-Reactive Protein Total Protein Albumin Prealbumin Triglycerides Cholesterol LDL Cholesterol Direct HDL Cholesterol Urine pH Urine WBC (Auto) Urine Creatinine Urine Total Protein Fluid Total Protein Vancomycin Trough Rheumatoid Factor Complement C4 Miscellaneous Test Crossmatch 10/21/16 10/21/16 10/22/16 05:54 23:46 05:18 WBC RBC Hgb Hct MCV MCH MCHC RDW Plt Count Lymph % (Auto) [place] % (Auto) Lymph # [place] # Baso # Seg Neutrophils % Seg Neuts % (Manual) Lymphocytes % (Manual) Monocytes % (Manual) Eosinophils % (Manual) Basophils % (Manual) Nucleated RBC % Seg Neutrophils # Seg Neutrophils # Man Lymphocytes # (Manual) Monocytes # (Manual) Eosinophils # (Manual) PT INR Fibrinogen dRVVT Confirm Interp Factor V Activity POC ABG pH POC ABG pCO2 POC ABG pO2 ABG pO2 ABG HCO3 ABG Base Excess ABG Hemoglobin Oxyhemoglobin Sodium Potassium Chloride Carbon Dioxide BUN Creatinine Glucose POC Glucose 119 H 108 H 109 H Lactic Acid Calcium Phosphorus Magnesium Direct Bilirubin AST ALT Alkaline Phosphatase Lactate Dehydrogenase Troponin T C-Reactive Protein Total Protein Albumin Prealbumin Triglycerides Cholesterol LDL Cholesterol Direct HDL Cholesterol Urine pH Urine WBC (Auto) Urine Creatinine Urine Total Protein Fluid Total Protein Vancomycin Trough Rheumatoid Factor Complement C4 Miscellaneous Test Crossmatch 10/22/16 10/22/16 10/22/16 06:40 06:40 06:40 WBC 14.0 H RBC 2.03 L Hgb 7.0 L Hct 20.5 L MCV 98 H MCH 34 H MCHC 35 H RDW 17.8 H Plt Count Lymph % (Auto) [place] % (Auto) 9.9 H Lymph # [place] # 1.4 H Baso # 0.2 H Seg Neutrophils % 72.0 H Seg Neuts % (Manual) Lymphocytes % (Manual) Monocytes % (Manual) Eosinophils % (Manual) Basophils % (Manual) Nucleated RBC % Seg Neutrophils # 10.0 H Seg Neutrophils # Man Lymphocytes # (Manual) Monocytes # (Manual) Eosinophils # (Manual) PT INR Fibrinogen dRVVT Confirm Interp Factor V Activity POC ABG pH POC ABG pCO2 POC ABG pO2 ABG pO2 ABG HCO3 ABG Base Excess ABG Hemoglobin Oxyhemoglobin Sodium 130 L D Potassium Chloride 92.4 L Carbon Dioxide 20 L BUN 50 H Creatinine 1.6 H Glucose 589 H* POC Glucose Lactic Acid Calcium 7.8 L D Phosphorus Magnesium 1.60 L Direct Bilirubin AST ALT Alkaline Phosphatase Lactate Dehydrogenase Troponin T C-Reactive Protein Total Protein Albumin Prealbumin Triglycerides Cholesterol LDL Cholesterol Direct HDL Cholesterol Urine pH Urine WBC (Auto) Urine Creatinine Urine Total Protein Fluid Total Protein Vancomycin Trough Rheumatoid Factor Complement C4 Miscellaneous Test Crossmatch 10/22/16 10/22/16 10/22/16 11:39 16:44 23:36 WBC RBC Hgb Hct MCV MCH MCHC RDW Plt Count Lymph % (Auto) [place] % (Auto) Lymph # [place] # Baso # Seg Neutrophils % Seg Neuts % (Manual) Lymphocytes % (Manual) Monocytes % (Manual) Eosinophils % (Manual) Basophils % (Manual) Nucleated RBC % Seg Neutrophils # Seg Neutrophils # Man Lymphocytes # (Manual) Monocytes # (Manual) Eosinophils # (Manual) PT INR Fibrinogen dRVVT Confirm Interp Factor V Activity POC ABG pH POC ABG pCO2 POC ABG pO2 ABG pO2 ABG HCO3 ABG Base Excess ABG Hemoglobin Oxyhemoglobin Sodium Potassium Chloride Carbon Dioxide BUN Creatinine Glucose POC Glucose 142 H 163 H 123 H Lactic Acid Calcium Phosphorus Magnesium Direct Bilirubin AST ALT Alkaline Phosphatase Lactate Dehydrogenase Troponin T C-Reactive Protein Total Protein Albumin Prealbumin Triglycerides Cholesterol LDL Cholesterol Direct HDL Cholesterol Urine pH Urine WBC (Auto) Urine Creatinine Urine Total Protein Fluid Total Protein Vancomycin Trough Rheumatoid Factor Complement C4 Miscellaneous Test Crossmatch 10/23/16 10/23/16 10/23/16 04:58 06:00 12:12 WBC RBC Hgb Hct MCV MCH MCHC RDW Plt Count Lymph % (Auto) [place] % (Auto) Lymph # [place] # Baso # Seg Neutrophils % Seg Neuts % (Manual) Lymphocytes % (Manual) Monocytes % (Manual) Eosinophils % (Manual) Basophils % (Manual) Nucleated RBC % Seg Neutrophils # Seg Neutrophils # Man Lymphocytes # (Manual) Monocytes # (Manual) Eosinophils # (Manual) PT INR Fibrinogen dRVVT Confirm Interp Factor V Activity POC ABG pH POC ABG pCO2 POC ABG pO2 ABG pO2 ABG HCO3 ABG Base Excess ABG Hemoglobin Oxyhemoglobin Sodium 133 L Potassium 3.5 L Chloride 96.1 L Carbon Dioxide 18 L BUN 76 H Creatinine 2.1 H Glucose POC Glucose 133 H 138 H Lactic Acid Calcium 8.3 L Phosphorus Magnesium Direct Bilirubin AST ALT Alkaline Phosphatase Lactate Dehydrogenase Troponin T C-Reactive Protein Total Protein Albumin Prealbumin Triglycerides Cholesterol LDL Cholesterol Direct HDL Cholesterol Urine pH Urine WBC (Auto) Urine Creatinine Urine Total Protein Fluid Total Protein Vancomycin Trough Rheumatoid Factor Complement C4 Miscellaneous Test Crossmatch 10/23/16 10/23/16 10/24/16 16:53 23:37 04:00 WBC RBC Hgb Hct MCV MCH MCHC RDW Plt Count Lymph % (Auto) [place] % (Auto) Lymph # [place] # Baso # Seg Neutrophils % Seg Neuts % (Manual) Lymphocytes % (Manual) Monocytes % (Manual) Eosinophils % (Manual) Basophils % (Manual) Nucleated RBC % Seg Neutrophils # Seg Neutrophils # Man Lymphocytes # (Manual) Monocytes # (Manual) Eosinophils # (Manual) PT INR Fibrinogen dRVVT Confirm Interp Factor V Activity POC ABG pH POC ABG pCO2 POC ABG pO2 ABG pO2 ABG HCO3 ABG Base Excess ABG Hemoglobin Oxyhemoglobin Sodium 131 L Potassium Chloride 94.5 L Carbon Dioxide 19 L BUN 97 H Creatinine 2.6 H Glucose 110 H POC Glucose 125 H 123 H Lactic Acid Calcium 8.3 L Phosphorus Magnesium Direct Bilirubin AST ALT Alkaline Phosphatase Lactate Dehydrogenase Troponin T C-Reactive Protein Total Protein Albumin Prealbumin Triglycerides Cholesterol LDL Cholesterol Direct HDL Cholesterol Urine pH Urine WBC (Auto) Urine Creatinine Urine Total Protein Fluid Total Protein Vancomycin Trough Rheumatoid Factor Complement C4 Miscellaneous Test Crossmatch 10/24/16 10/24/16 10/24/16 07:49 11:39 17:52 WBC RBC Hgb 6.0 L Hct 19.7 L* MCV MCH MCHC RDW Plt Count Lymph % (Auto) [place] % (Auto) Lymph # [place] # Baso # Seg Neutrophils % Seg Neuts % (Manual) Lymphocytes % (Manual) Monocytes % (Manual) Eosinophils % (Manual) Basophils % (Manual) Nucleated RBC % Seg Neutrophils # Seg Neutrophils # Man Lymphocytes # (Manual) Monocytes # (Manual) Eosinophils # (Manual) PT INR Fibrinogen dRVVT Confirm Interp Factor V Activity POC ABG pH POC ABG pCO2 POC ABG pO2 ABG pO2 ABG HCO3 ABG Base Excess ABG Hemoglobin Oxyhemoglobin Sodium Potassium Chloride Carbon Dioxide BUN Creatinine Glucose POC Glucose 106 H 158 H Lactic Acid Calcium Phosphorus Magnesium Direct Bilirubin AST ALT Alkaline Phosphatase Lactate Dehydrogenase Troponin T C-Reactive Protein Total Protein Albumin Prealbumin Triglycerides Cholesterol LDL Cholesterol Direct HDL Cholesterol Urine pH Urine WBC (Auto) Urine Creatinine Urine Total Protein Fluid Total Protein Vancomycin Trough Rheumatoid Factor Complement C4 Miscellaneous Test Crossmatch 10/24/16 10/24/16 10/24/16 20:00 22:27 Unknown WBC RBC Hgb 9.4 L D Hct 27.5 L D MCV MCH MCHC RDW Plt Count Lymph % (Auto) [place] % (Auto) Lymph # [place] # Baso # Seg Neutrophils % Seg Neuts % (Manual) Lymphocytes % (Manual) Monocytes % (Manual) Eosinophils % (Manual) Basophils % (Manual) Nucleated RBC % Seg Neutrophils # Seg Neutrophils # Man Lymphocytes # (Manual) Monocytes # (Manual) Eosinophils # (Manual) PT INR Fibrinogen dRVVT Confirm Interp Factor V Activity POC ABG pH POC ABG pCO2 POC ABG pO2 ABG pO2 ABG HCO3 ABG Base Excess ABG Hemoglobin Oxyhemoglobin Sodium Potassium Chloride Carbon Dioxide BUN Creatinine Glucose POC Glucose 125 H Lactic Acid Calcium Phosphorus Magnesium Direct Bilirubin AST ALT Alkaline Phosphatase Lactate Dehydrogenase Troponin T C-Reactive Protein Total Protein Albumin Prealbumin Triglycerides Cholesterol LDL Cholesterol Direct HDL Cholesterol Urine pH Urine WBC (Auto) Urine Creatinine Urine Total Protein Fluid Total Protein Vancomycin Trough Rheumatoid Factor Complement C4 Miscellaneous Test Crossmatch See Detail 10/25/16 10/25/16 10/25/16 04:00 04:00 04:00 WBC 14.2 H RBC 2.98 L Hgb 9.0 L Hct 26.2 L MCV MCH MCHC RDW 16.6 H Plt Count Lymph % (Auto) [place] % (Auto) 10.7 H Lymph # [place] # 1.5 H Baso # Seg Neutrophils % 73.6 H Seg Neuts % (Manual) Lymphocytes % (Manual) Monocytes % (Manual) Eosinophils % (Manual) Basophils % (Manual) Nucleated RBC % Seg Neutrophils # 10.5 H Seg Neutrophils # Man Lymphocytes # (Manual) Monocytes # (Manual) Eosinophils # (Manual) PT INR Fibrinogen dRVVT Confirm Interp Factor V Activity POC ABG pH POC ABG pCO2 POC ABG pO2 ABG pO2 ABG HCO3 ABG Base Excess ABG Hemoglobin Oxyhemoglobin Sodium 132 L Potassium Chloride 94.7 L Carbon Dioxide BUN 51 H Creatinine 1.6 H Glucose 130 H POC Glucose Lactic Acid Calcium 8.3 L Phosphorus 1.60 L D Magnesium Direct Bilirubin AST ALT Alkaline Phosphatase Lactate Dehydrogenase Troponin T C-Reactive Protein Total Protein Albumin Prealbumin Triglycerides Cholesterol LDL Cholesterol Direct HDL Cholesterol Urine pH Urine WBC (Auto) Urine Creatinine Urine Total Protein Fluid Total Protein Vancomycin Trough Rheumatoid Factor Complement C4 Miscellaneous Test Crossmatch 10/25/16 10/25/16 10/25/16 04:32 11:48 17:22 WBC RBC Hgb Hct MCV MCH MCHC RDW Plt Count Lymph % (Auto) [place] % (Auto) Lymph # [place] # Baso # Seg Neutrophils % Seg Neuts % (Manual) Lymphocytes % (Manual) Monocytes % (Manual) Eosinophils % (Manual) Basophils % (Manual) Nucleated RBC % Seg Neutrophils # Seg Neutrophils # Man Lymphocytes # (Manual) Monocytes # (Manual) Eosinophils # (Manual) PT INR Fibrinogen dRVVT Confirm Interp Factor V Activity POC ABG pH POC ABG pCO2 POC ABG pO2 ABG pO2 ABG HCO3 ABG Base Excess ABG Hemoglobin Oxyhemoglobin Sodium Potassium Chloride Carbon Dioxide BUN Creatinine Glucose POC Glucose 124 H 171 H 120 H Lactic Acid Calcium Phosphorus Magnesium Direct Bilirubin AST ALT Alkaline Phosphatase Lactate Dehydrogenase Troponin T C-Reactive Protein Total Protein Albumin Prealbumin Triglycerides Cholesterol LDL Cholesterol Direct HDL Cholesterol Urine pH Urine WBC (Auto) Urine Creatinine Urine Total Protein Fluid Total Protein Vancomycin Trough Rheumatoid Factor Complement C4 Miscellaneous Test Crossmatch 10/26/16 10/26/16 10/26/16 04:54 07:06 07:06 WBC 16.9 H RBC 3.06 L Hgb 9.1 L Hct 26.9 L MCV MCH MCHC RDW 16.9 H Plt Count Lymph % (Auto) [place] % (Auto) Lymph # [place] # Baso # Seg Neutrophils % Seg Neuts % (Manual) 71.0 H Lymphocytes % (Manual) 5.0 L Monocytes % (Manual) 12.0 H Eosinophils % (Manual) Basophils % (Manual) Nucleated RBC % Seg Neutrophils # Seg Neutrophils # Man 12.0 H Lymphocytes # (Manual) 0.8 L Monocytes # (Manual) 2.0 H Eosinophils # (Manual) PT INR Fibrinogen dRVVT Confirm Interp Factor V Activity POC ABG pH POC ABG pCO2 POC ABG pO2 ABG pO2 ABG HCO3 ABG Base Excess ABG Hemoglobin Oxyhemoglobin Sodium 135 L Potassium Chloride 97.1 L Carbon Dioxide BUN 73 H Creatinine 2.2 H Glucose 117 H POC Glucose 123 H Lactic Acid Calcium Phosphorus 1.70 L Magnesium Direct Bilirubin AST ALT Alkaline Phosphatase Lactate Dehydrogenase Troponin T C-Reactive Protein Total Protein Albumin Prealbumin Triglycerides Cholesterol LDL Cholesterol Direct HDL Cholesterol Urine pH Urine WBC (Auto) Urine Creatinine Urine Total Protein Fluid Total Protein Vancomycin Trough Rheumatoid Factor Complement C4 Miscellaneous Test Crossmatch 10/26/16 10/26/16 10/26/16 12:12 17:29 23:42 WBC RBC Hgb Hct MCV MCH MCHC RDW Plt Count Lymph % (Auto) [place] % (Auto) Lymph # [place] # Baso # Seg Neutrophils % Seg Neuts % (Manual) Lymphocytes % (Manual) Monocytes % (Manual) Eosinophils % (Manual) Basophils % (Manual) Nucleated RBC % Seg Neutrophils # Seg Neutrophils # Man Lymphocytes # (Manual) Monocytes # (Manual) Eosinophils # (Manual) PT INR Fibrinogen dRVVT Confirm Interp Factor V Activity POC ABG pH POC ABG pCO2 POC ABG pO2 ABG pO2 ABG HCO3 ABG Base Excess ABG Hemoglobin Oxyhemoglobin Sodium Potassium Chloride Carbon Dioxide BUN Creatinine Glucose POC Glucose 126 H 161 H 118 H Lactic Acid Calcium Phosphorus Magnesium Direct Bilirubin AST ALT Alkaline Phosphatase Lactate Dehydrogenase Troponin T C-Reactive Protein Total Protein Albumin Prealbumin Triglycerides Cholesterol LDL Cholesterol Direct HDL Cholesterol Urine pH Urine WBC (Auto) Urine Creatinine Urine Total Protein Fluid Total Protein Vancomycin Trough Rheumatoid Factor Complement C4 Miscellaneous Test Crossmatch 10/27/16 10/27/16 10/27/16 05:03 06:30 06:30 WBC 13.9 H RBC 3.09 L Hgb 9.2 L Hct 27.5 L MCV MCH MCHC RDW 17.0 H Plt Count Lymph % (Auto) [place] % (Auto) Lymph # [place] # Baso # Seg Neutrophils % Seg Neuts % (Manual) 78.0 H Lymphocytes % (Manual) Monocytes % (Manual) Eosinophils % (Manual) Basophils % (Manual) Nucleated RBC % 2.0 H Seg Neutrophils # Seg Neutrophils # Man 10.8 H Lymphocytes # (Manual) Monocytes # (Manual) 1.0 H Eosinophils # (Manual) PT INR Fibrinogen dRVVT Confirm Interp Factor V Activity POC ABG pH POC ABG pCO2 POC ABG pO2 ABG pO2 ABG HCO3 ABG Base Excess ABG Hemoglobin Oxyhemoglobin Sodium Potassium Chloride Carbon Dioxide BUN 40 H Creatinine 1.5 H Glucose 135 H POC Glucose 107 H Lactic Acid Calcium 8.3 L Phosphorus 1.30 L D Magnesium Direct Bilirubin AST ALT Alkaline Phosphatase Lactate Dehydrogenase Troponin T C-Reactive Protein Total Protein Albumin Prealbumin Triglycerides Cholesterol LDL Cholesterol Direct HDL Cholesterol Urine pH Urine WBC (Auto) Urine Creatinine Urine Total Protein Fluid Total Protein Vancomycin Trough Rheumatoid Factor Complement C4 Miscellaneous Test Crossmatch 09/07/17 09/07/17 09/07/17 13:27 18:07 23:40 WBC RBC Hgb Hct MCV MCH MCHC RDW Plt Count Lymph % (Auto) [place] % (Auto) Lymph # [place] # Baso # Seg Neutrophils % Seg Neuts % (Manual) Lymphocytes % (Manual) Monocytes % (Manual) Eosinophils % (Manual) Basophils % (Manual) Nucleated RBC % Seg Neutrophils # Seg Neutrophils # Man Lymphocytes # (Manual) Monocytes # (Manual) Eosinophils # (Manual) PT INR Fibrinogen dRVVT Confirm Interp Factor V Activity POC ABG pH POC ABG pCO2 POC ABG pO2 ABG pO2 ABG HCO3 ABG Base Excess ABG Hemoglobin Oxyhemoglobin Sodium Potassium Chloride Carbon Dioxide BUN Creatinine Glucose POC Glucose 117 H 121 H 118 H Lactic Acid Calcium Phosphorus Magnesium Direct Bilirubin AST ALT Alkaline Phosphatase Lactate Dehydrogenase Troponin T C-Reactive Protein Total Protein Albumin Prealbumin Triglycerides Cholesterol LDL Cholesterol Direct HDL Cholesterol Urine pH Urine WBC (Auto) Urine Creatinine Urine Total Protein Fluid Total Protein Vancomycin Trough Rheumatoid Factor Complement C4 Miscellaneous Test Crossmatch 10/28/16 10/28/16 10/28/16 05:48 06:45 06:45 WBC 14.7 H RBC 3.05 L Hgb 9.0 L Hct 26.9 L MCV MCH MCHC RDW 16.8 H Plt Count Lymph % (Auto) 8.2 L [place] % (Auto) 8.4 H Lymph # [place] # 1.2 H Baso # Seg Neutrophils % 81.9 H Seg Neuts % (Manual) Lymphocytes % (Manual) Monocytes % (Manual) Eosinophils % (Manual) Basophils % (Manual) Nucleated RBC % Seg Neutrophils # 12.1 H Seg Neutrophils # Man Lymphocytes # (Manual) Monocytes # (Manual) Eosinophils # (Manual) PT INR Fibrinogen dRVVT Confirm Interp Factor V Activity POC ABG pH POC ABG pCO2 POC ABG pO2 ABG pO2 ABG HCO3 ABG Base Excess ABG Hemoglobin Oxyhemoglobin Sodium Potassium Chloride Carbon Dioxide BUN 60 H Creatinine 1.9 H Glucose 120 H POC Glucose 114 H Lactic Acid Calcium Phosphorus Magnesium Direct Bilirubin AST ALT Alkaline Phosphatase Lactate Dehydrogenase Troponin T C-Reactive Protein Total Protein Albumin Prealbumin Triglycerides Cholesterol LDL Cholesterol Direct HDL Cholesterol Urine pH Urine WBC (Auto) Urine Creatinine Urine Total Protein Fluid Total Protein Vancomycin Trough Rheumatoid Factor Complement C4 Miscellaneous Test Crossmatch 10/28/16 10/28/16 10/29/16 17:08 23:50 05:10 WBC RBC Hgb Hct MCV MCH MCHC RDW Plt Count Lymph % (Auto) [place] % (Auto) Lymph # [place] # Baso # Seg Neutrophils % Seg Neuts % (Manual) Lymphocytes % (Manual) Monocytes % (Manual) Eosinophils % (Manual) Basophils % (Manual) Nucleated RBC % Seg Neutrophils # Seg Neutrophils # Man Lymphocytes # (Manual) Monocytes # (Manual) Eosinophils # (Manual) PT INR Fibrinogen dRVVT Confirm Interp Factor V Activity POC ABG pH POC ABG pCO2 POC ABG pO2 ABG pO2 ABG HCO3 ABG Base Excess ABG Hemoglobin Oxyhemoglobin Sodium Potassium Chloride Carbon Dioxide BUN Creatinine Glucose POC Glucose 109 H 110 H 124 H Lactic Acid Calcium Phosphorus Magnesium Direct Bilirubin AST ALT Alkaline Phosphatase Lactate Dehydrogenase Troponin T C-Reactive Protein Total Protein Albumin Prealbumin Triglycerides Cholesterol LDL Cholesterol Direct HDL Cholesterol Urine pH Urine WBC (Auto) Urine Creatinine Urine Total Protein Fluid Total Protein Vancomycin Trough Rheumatoid Factor Complement C4 Miscellaneous Test Crossmatch 10/29/16 10/29/16 10/29/16 07:45 07:45 12:19 WBC 14.7 H RBC 3.15 L Hgb 9.3 L Hct 28.9 L MCV MCH MCHC RDW 17.0 H Plt Count Lymph % (Auto) 11.9 L [place] % (Auto) 8.6 H Lymph # [place] # 1.3 H Baso # Seg Neutrophils % 78.1 H Seg Neuts % (Manual) Lymphocytes % (Manual) Monocytes % (Manual) Eosinophils % (Manual) Basophils % (Manual) Nucleated RBC % Seg Neutrophils # 11.4 H Seg Neutrophils # Man Lymphocytes # (Manual) Monocytes # (Manual) Eosinophils # (Manual) PT INR Fibrinogen dRVVT Confirm Interp Factor V Activity POC ABG pH POC ABG pCO2 POC ABG pO2 ABG pO2 ABG HCO3 ABG Base Excess ABG Hemoglobin Oxyhemoglobin Sodium Potassium 5.1 H Chloride Carbon Dioxide 19 L BUN 78 H Creatinine 2.2 H Glucose 116 H POC Glucose 118 H Lactic Acid Calcium Phosphorus Magnesium Direct Bilirubin AST ALT Alkaline Phosphatase Lactate Dehydrogenase Troponin T C-Reactive Protein Total Protein Albumin Prealbumin Triglycerides Cholesterol LDL Cholesterol Direct HDL Cholesterol Urine pH Urine WBC (Auto) Urine Creatinine Urine Total Protein Fluid Total Protein Vancomycin Trough Rheumatoid Factor Complement C4 Miscellaneous Test Crossmatch 10/29/16 10/30/16 10/30/16 17:49 01:52 03:28 WBC RBC Hgb Hct MCV MCH MCHC RDW Plt Count Lymph % (Auto) [place] % (Auto) Lymph # [place] # Baso # Seg Neutrophils % Seg Neuts % (Manual) Lymphocytes % (Manual) Monocytes % (Manual) Eosinophils % (Manual) Basophils % (Manual) Nucleated RBC % Seg Neutrophils # Seg Neutrophils # Man Lymphocytes # (Manual) Monocytes # (Manual) Eosinophils # (Manual) PT INR Fibrinogen dRVVT Confirm Interp Factor V Activity POC ABG pH POC ABG pCO2 POC ABG pO2 ABG pO2 ABG HCO3 ABG Base Excess ABG Hemoglobin Oxyhemoglobin Sodium Potassium 5.4 H Chloride 97.5 L Carbon Dioxide 19 L BUN 90 H Creatinine 2.5 H Glucose POC Glucose 120 H 129 H Lactic Acid Calcium Phosphorus 5.20 H Magnesium Direct Bilirubin AST ALT Alkaline Phosphatase Lactate Dehydrogenase Troponin T C-Reactive Protein Total Protein Albumin Prealbumin Triglycerides Cholesterol LDL Cholesterol Direct HDL Cholesterol Urine pH Urine WBC (Auto) Urine Creatinine Urine Total Protein Fluid Total Protein Vancomycin Trough Rheumatoid Factor Complement C4 Miscellaneous Test Crossmatch 10/30/16 10/30/16 10/30/16 03:28 08:19 08:19 WBC 11.6 H 15.9 H RBC 2.75 L 2.82 L Hgb 7.9 L 8.3 L Hct 24.2 L 25.2 L MCV MCH MCHC RDW 16.7 H 17.2 H Plt Count Lymph % (Auto) [place] % (Auto) 9.8 H Lymph # [place] # 1.1 H Baso # Seg Neutrophils % 74.2 H Seg Neuts % (Manual) Lymphocytes % (Manual) Monocytes % (Manual) Eosinophils % (Manual) Basophils % (Manual) Nucleated RBC % Seg Neutrophils # 8.6 H Seg Neutrophils # Man Lymphocytes # (Manual) Monocytes # (Manual) Eosinophils # (Manual) PT INR Fibrinogen dRVVT Confirm Interp Factor V Activity POC ABG pH POC ABG pCO2 POC ABG pO2 ABG pO2 ABG HCO3 ABG Base Excess ABG Hemoglobin Oxyhemoglobin Sodium Potassium 5.3 H Chloride 97.4 L Carbon Dioxide 19 L BUN 93 H Creatinine 2.6 H Glucose POC Glucose Lactic Acid Calcium Phosphorus Magnesium Direct Bilirubin AST ALT Alkaline Phosphatase Lactate Dehydrogenase Troponin T C-Reactive Protein Total Protein Albumin Prealbumin Triglycerides Cholesterol LDL Cholesterol Direct HDL Cholesterol Urine pH Urine WBC (Auto) Urine Creatinine Urine Total Protein Fluid Total Protein Vancomycin Trough Rheumatoid Factor Complement C4 Miscellaneous Test Crossmatch 10/30/16 10/30/16 10/31/16 17:11 23:56 00:40 WBC RBC Hgb Hct MCV MCH MCHC RDW Plt Count Lymph % (Auto) [place] % (Auto) Lymph # [place] # Baso # Seg Neutrophils % Seg Neuts % (Manual) Lymphocytes % (Manual) Monocytes % (Manual) Eosinophils % (Manual) Basophils % (Manual) Nucleated RBC % Seg Neutrophils # Seg Neutrophils # Man Lymphocytes # (Manual) Monocytes # (Manual) Eosinophils # (Manual) PT INR Fibrinogen dRVVT Confirm Interp Factor V Activity POC ABG pH POC ABG pCO2 POC ABG pO2 ABG pO2 ABG HCO3 ABG Base Excess ABG Hemoglobin Oxyhemoglobin Sodium Potassium Chloride Carbon Dioxide BUN Creatinine Glucose POC Glucose 106 H 117 H 120 H Lactic Acid Calcium Phosphorus Magnesium Direct Bilirubin AST ALT Alkaline Phosphatase Lactate Dehydrogenase Troponin T C-Reactive Protein Total Protein Albumin Prealbumin Triglycerides Cholesterol LDL Cholesterol Direct HDL Cholesterol Urine pH Urine WBC (Auto) Urine Creatinine Urine Total Protein Fluid Total Protein Vancomycin Trough Rheumatoid Factor Complement C4 Miscellaneous Test Crossmatch 10/31/16 10/31/16 10/31/16 05:43 07:15 07:15 WBC 12.1 H RBC 2.63 L Hgb 7.7 L Hct 23.3 L MCV MCH MCHC RDW 16.7 H Plt Count Lymph % (Auto) 11.7 L [place] % (Auto) 7.7 H Lymph # [place] # 0.9 H Baso # Seg Neutrophils % 78.0 H Seg Neuts % (Manual) Lymphocytes % (Manual) Monocytes % (Manual) Eosinophils % (Manual) Basophils % (Manual) Nucleated RBC % Seg Neutrophils # 9.4 H Seg Neutrophils # Man Lymphocytes # (Manual) Monocytes # (Manual) Eosinophils # (Manual) PT INR Fibrinogen dRVVT Confirm Interp Factor V Activity POC ABG pH POC ABG pCO2 POC ABG pO2 ABG pO2 ABG HCO3 ABG Base Excess ABG Hemoglobin Oxyhemoglobin Sodium Potassium Chloride 96.4 L Carbon Dioxide 21 L BUN 99 H Creatinine 2.6 H Glucose 144 H POC Glucose 125 H Lactic Acid Calcium Phosphorus 4.80 H Magnesium Direct Bilirubin AST ALT Alkaline Phosphatase Lactate Dehydrogenase Troponin T C-Reactive Protein Total Protein Albumin Prealbumin Triglycerides Cholesterol LDL Cholesterol Direct HDL Cholesterol Urine pH Urine WBC (Auto) Urine Creatinine Urine Total Protein Fluid Total Protein Vancomycin Trough Rheumatoid Factor Complement C4 Miscellaneous Test Crossmatch 10/31/16 10/31/16 11/01/16 11:46 18:34 00:20 WBC RBC Hgb Hct MCV MCH MCHC RDW Plt Count Lymph % (Auto) [place] % (Auto) Lymph # [place] # Baso # Seg Neutrophils % Seg Neuts % (Manual) Lymphocytes % (Manual) Monocytes % (Manual) Eosinophils % (Manual) Basophils % (Manual) Nucleated RBC % Seg Neutrophils # Seg Neutrophils # Man Lymphocytes # (Manual) Monocytes # (Manual) Eosinophils # (Manual) PT INR Fibrinogen dRVVT Confirm Interp Factor V Activity POC ABG pH POC ABG pCO2 POC ABG pO2 ABG pO2 ABG HCO3 ABG Base Excess ABG Hemoglobin Oxyhemoglobin Sodium Potassium Chloride Carbon Dioxide BUN Creatinine Glucose POC Glucose 159 H 140 H 132 H Lactic Acid Calcium Phosphorus Magnesium Direct Bilirubin AST ALT Alkaline Phosphatase Lactate Dehydrogenase Troponin T C-Reactive Protein Total Protein Albumin Prealbumin Triglycerides Cholesterol LDL Cholesterol Direct HDL Cholesterol Urine pH Urine WBC (Auto) Urine Creatinine Urine Total Protein Fluid Total Protein Vancomycin Trough Rheumatoid Factor Complement C4 Miscellaneous Test Crossmatch 11/01/16 11/01/16 11/01/16 04:55 04:55 06:11 WBC 11.2 H RBC 2.68 L Hgb 7.5 L Hct 23.7 L MCV MCH MCHC RDW 16.1 H Plt Count Lymph % (Auto) [place] % (Auto) 9.8 H Lymph # [place] # 1.1 H Baso # Seg Neutrophils % 70.8 H Seg Neuts % (Manual) Lymphocytes % (Manual) Monocytes % (Manual) Eosinophils % (Manual) Basophils % (Manual) Nucleated RBC % Seg Neutrophils # 7.9 H Seg Neutrophils # Man Lymphocytes # (Manual) Monocytes # (Manual) Eosinophils # (Manual) PT INR Fibrinogen dRVVT Confirm Interp Factor V Activity POC ABG pH POC ABG pCO2 POC ABG pO2 ABG pO2 ABG HCO3 ABG Base Excess ABG Hemoglobin Oxyhemoglobin Sodium Potassium 3.3 L D Chloride Carbon Dioxide BUN 61 H Creatinine 1.9 H Glucose 114 H POC Glucose 115 H Lactic Acid Calcium Phosphorus 1.80 L D Magnesium Direct Bilirubin AST ALT Alkaline Phosphatase Lactate Dehydrogenase Troponin T C-Reactive Protein Total Protein Albumin Prealbumin Triglycerides Cholesterol LDL Cholesterol Direct HDL Cholesterol Urine pH Urine WBC (Auto) Urine Creatinine Urine Total Protein Fluid Total Protein Vancomycin Trough Rheumatoid Factor Complement C4 Miscellaneous Test Crossmatch 11/01/16 11/01/16 11/01/16 12:29 18:23 23:58 WBC RBC Hgb Hct MCV MCH MCHC RDW Plt Count Lymph % (Auto) [place] % (Auto) Lymph # [place] # Baso # Seg Neutrophils % Seg Neuts % (Manual) Lymphocytes % (Manual) Monocytes % (Manual) Eosinophils % (Manual) Basophils % (Manual) Nucleated RBC % Seg Neutrophils # Seg Neutrophils # Man Lymphocytes # (Manual) Monocytes # (Manual) Eosinophils # (Manual) PT INR Fibrinogen dRVVT Confirm Interp Factor V Activity POC ABG pH POC ABG pCO2 POC ABG pO2 ABG pO2 ABG HCO3 ABG Base Excess ABG Hemoglobin Oxyhemoglobin Sodium Potassium Chloride Carbon Dioxide BUN Creatinine Glucose POC Glucose 142 H 143 H 128 H Lactic Acid Calcium Phosphorus Magnesium Direct Bilirubin AST ALT Alkaline Phosphatase Lactate Dehydrogenase Troponin T C-Reactive Protein Total Protein Albumin Prealbumin Triglycerides Cholesterol LDL Cholesterol Direct HDL Cholesterol Urine pH Urine WBC (Auto) Urine Creatinine Urine Total Protein Fluid Total Protein Vancomycin Trough Rheumatoid Factor Complement C4 Miscellaneous Test Crossmatch 11/02/16 11/02/16 11/02/16 04:16 05:29 11:58 WBC RBC Hgb Hct MCV MCH MCHC RDW Plt Count Lymph % (Auto) [place] % (Auto) Lymph # [place] # Baso # Seg Neutrophils % Seg Neuts % (Manual) Lymphocytes % (Manual) Monocytes % (Manual) Eosinophils % (Manual) Basophils % (Manual) Nucleated RBC % Seg Neutrophils # Seg Neutrophils # Man Lymphocytes # (Manual) Monocytes # (Manual) Eosinophils # (Manual) PT INR Fibrinogen dRVVT Confirm Interp Factor V Activity POC ABG pH POC ABG pCO2 POC ABG pO2 ABG pO2 ABG HCO3 ABG Base Excess ABG Hemoglobin Oxyhemoglobin Sodium Potassium 3.1 L Chloride Carbon Dioxide BUN 73 H Creatinine 2.3 H Glucose 112 H POC Glucose 135 H 149 H Lactic Acid Calcium Phosphorus Magnesium Direct Bilirubin AST ALT Alkaline Phosphatase Lactate Dehydrogenase Troponin T C-Reactive Protein Total Protein Albumin Prealbumin Triglycerides Cholesterol LDL Cholesterol Direct HDL Cholesterol Urine pH Urine WBC (Auto) Urine Creatinine Urine Total Protein Fluid Total Protein Vancomycin Trough Rheumatoid Factor Complement C4 Miscellaneous Test Crossmatch 11/02/16 11/02/16 11/03/16 17:42 22:54 06:00 WBC RBC Hgb Hct MCV MCH MCHC RDW Plt Count Lymph % (Auto) [place] % (Auto) Lymph # [place] # Baso # Seg Neutrophils % Seg Neuts % (Manual) Lymphocytes % (Manual) Monocytes % (Manual) Eosinophils % (Manual) Basophils % (Manual) Nucleated RBC % Seg Neutrophils # Seg Neutrophils # Man Lymphocytes # (Manual) Monocytes # (Manual) Eosinophils # (Manual) PT INR Fibrinogen dRVVT Confirm Interp Factor V Activity POC ABG pH POC ABG pCO2 POC ABG pO2 ABG pO2 ABG HCO3 ABG Base Excess ABG Hemoglobin Oxyhemoglobin Sodium Potassium Chloride 96.7 L Carbon Dioxide BUN 41 H Creatinine 1.5 H Glucose 145 H POC Glucose 182 H 115 H Lactic Acid Calcium Phosphorus 1.60 L D Magnesium 1.50 L Direct Bilirubin AST ALT Alkaline Phosphatase Lactate Dehydrogenase Troponin T C-Reactive Protein Total Protein Albumin Prealbumin Triglycerides Cholesterol LDL Cholesterol Direct HDL Cholesterol Urine pH Urine WBC (Auto) Urine Creatinine Urine Total Protein Fluid Total Protein Vancomycin Trough Rheumatoid Factor Complement C4 Miscellaneous Test Crossmatch 11/03/16 11/03/16 11/03/16 11:53 17:45 23:37 WBC RBC Hgb Hct MCV MCH MCHC RDW Plt Count Lymph % (Auto) [place] % (Auto) Lymph # [place] # Baso # Seg Neutrophils % Seg Neuts % (Manual) Lymphocytes % (Manual) Monocytes % (Manual) Eosinophils % (Manual) Basophils % (Manual) Nucleated RBC % Seg Neutrophils # Seg Neutrophils # Man Lymphocytes # (Manual) Monocytes # (Manual) Eosinophils # (Manual) PT INR Fibrinogen dRVVT Confirm Interp Factor V Activity POC ABG pH POC ABG pCO2 POC ABG pO2 ABG pO2 ABG HCO3 ABG Base Excess ABG Hemoglobin Oxyhemoglobin Sodium Potassium Chloride Carbon Dioxide BUN Creatinine Glucose POC Glucose 131 H 134 H 113 H Lactic Acid Calcium Phosphorus Magnesium Direct Bilirubin AST ALT Alkaline Phosphatase Lactate Dehydrogenase Troponin T C-Reactive Protein Total Protein Albumin Prealbumin Triglycerides Cholesterol LDL Cholesterol Direct HDL Cholesterol Urine pH Urine WBC (Auto) Urine Creatinine Urine Total Protein Fluid Total Protein Vancomycin Trough Rheumatoid Factor Complement C4 Miscellaneous Test Crossmatch 11/04/16 11/04/16 11/04/16 05:41 06:00 12:10 WBC RBC Hgb Hct MCV MCH MCHC RDW Plt Count Lymph % (Auto) [place] % (Auto) Lymph # [place] # Baso # Seg Neutrophils % Seg Neuts % (Manual) Lymphocytes % (Manual) Monocytes % (Manual) Eosinophils % (Manual) Basophils % (Manual) Nucleated RBC % Seg Neutrophils # Seg Neutrophils # Man Lymphocytes # (Manual) Monocytes # (Manual) Eosinophils # (Manual) PT INR Fibrinogen dRVVT Confirm Interp Factor V Activity POC ABG pH POC ABG pCO2 POC ABG pO2 ABG pO2 ABG HCO3 ABG Base Excess ABG Hemoglobin Oxyhemoglobin Sodium Potassium Chloride 96.7 L Carbon Dioxide BUN 52 H Creatinine 1.9 H Glucose 126 H POC Glucose 137 H 191 H Lactic Acid Calcium Phosphorus Magnesium Direct Bilirubin AST ALT Alkaline Phosphatase Lactate Dehydrogenase Troponin T C-Reactive Protein Total Protein Albumin Prealbumin Triglycerides Cholesterol LDL Cholesterol Direct HDL Cholesterol Urine pH Urine WBC (Auto) Urine Creatinine Urine Total Protein Fluid Total Protein Vancomycin Trough Rheumatoid Factor Complement C4 Miscellaneous Test Crossmatch 11/04/16 11/05/16 11/05/16 22:57 03:10 05:10 WBC RBC Hgb Hct MCV MCH MCHC RDW Plt Count Lymph % (Auto) [place] % (Auto) Lymph # [place] # Baso # Seg Neutrophils % Seg Neuts % (Manual) Lymphocytes % (Manual) Monocytes % (Manual) Eosinophils % (Manual) Basophils % (Manual) Nucleated RBC % Seg Neutrophils # Seg Neutrophils # Man Lymphocytes # (Manual) Monocytes # (Manual) Eosinophils # (Manual) PT INR Fibrinogen dRVVT Confirm Interp Factor V Activity POC ABG pH POC ABG pCO2 POC ABG pO2 ABG pO2 ABG HCO3 ABG Base Excess ABG Hemoglobin Oxyhemoglobin Sodium 136 L Potassium Chloride 97.2 L Carbon Dioxide BUN 32 H Creatinine 1.3 H Glucose 123 H POC Glucose 125 H 108 H Lactic Acid Calcium 7.8 L Phosphorus Magnesium Direct Bilirubin AST ALT Alkaline Phosphatase Lactate Dehydrogenase Troponin T C-Reactive Protein Total Protein Albumin Prealbumin Triglycerides Cholesterol LDL Cholesterol Direct HDL Cholesterol Urine pH Urine WBC (Auto) Urine Creatinine Urine Total Protein Fluid Total Protein Vancomycin Trough Rheumatoid Factor Complement C4 Miscellaneous Test Crossmatch 11/05/16 11/05/16 11/05/16 12:23 13:09 13:25 WBC RBC Hgb Hct MCV MCH MCHC RDW Plt Count Lymph % (Auto) [place] % (Auto) Lymph # [place] # Baso # Seg Neutrophils % Seg Neuts % (Manual) Lymphocytes % (Manual) Monocytes % (Manual) Eosinophils % (Manual) Basophils % (Manual) Nucleated RBC % Seg Neutrophils # Seg Neutrophils # Man Lymphocytes # (Manual) Monocytes # (Manual) Eosinophils # (Manual) PT INR Fibrinogen dRVVT Confirm Interp Factor V Activity POC ABG pH POC ABG pCO2 POC ABG pO2 ABG pO2 ABG HCO3 ABG Base Excess ABG Hemoglobin Oxyhemoglobin Sodium Potassium Chloride Carbon Dioxide BUN Creatinine Glucose POC Glucose 124 H Lactic Acid Calcium Phosphorus Magnesium Direct Bilirubin AST ALT Alkaline Phosphatase Lactate Dehydrogenase Troponin T C-Reactive Protein 11.40 H Total Protein Albumin Prealbumin Triglycerides Cholesterol LDL Cholesterol Direct HDL Cholesterol Urine pH 9.0 H Urine WBC (Auto) Urine Creatinine Urine Total Protein Fluid Total Protein Vancomycin Trough Rheumatoid Factor Complement C4 Miscellaneous Test Crossmatch 11/05/16 11/05/16 11/05/16 13:25 17:54 23:42 WBC RBC Hgb Hct MCV MCH MCHC RDW Plt Count Lymph % (Auto) [place] % (Auto) Lymph # [place] # Baso # Seg Neutrophils % Seg Neuts % (Manual) Lymphocytes % (Manual) Monocytes % (Manual) Eosinophils % (Manual) Basophils % (Manual) Nucleated RBC % Seg Neutrophils # Seg Neutrophils # Man Lymphocytes # (Manual) Monocytes # (Manual) Eosinophils # (Manual) PT INR Fibrinogen dRVVT Confirm Interp Factor V Activity POC ABG pH POC ABG pCO2 POC ABG pO2 ABG pO2 ABG HCO3 ABG Base Excess ABG Hemoglobin Oxyhemoglobin Sodium Potassium Chloride Carbon Dioxide BUN Creatinine Glucose POC Glucose 114 H 134 H Lactic Acid Calcium Phosphorus Magnesium Direct Bilirubin AST ALT Alkaline Phosphatase Lactate Dehydrogenase Troponin T C-Reactive Protein Total Protein Albumin Prealbumin Triglycerides Cholesterol LDL Cholesterol Direct HDL Cholesterol Urine pH Urine WBC (Auto) Urine Creatinine Urine Total Protein Fluid Total Protein Vancomycin Trough Rheumatoid Factor Complement C4 Miscellaneous Test Flexitest 1 H Crossmatch 11/06/16 11/06/16 11/06/16 04:56 06:25 06:25 WBC RBC 2.50 L Hgb 7.3 L Hct 22.5 L MCV MCH MCHC RDW 16.9 H Plt Count Lymph % (Auto) [place] % (Auto) 10.5 H Lymph # [place] # 1.1 H Baso # Seg Neutrophils % Seg Neuts % (Manual) Lymphocytes % (Manual) Monocytes % (Manual) Eosinophils % (Manual) Basophils % (Manual) Nucleated RBC % Seg Neutrophils # Seg Neutrophils # Man Lymphocytes # (Manual) Monocytes # (Manual) Eosinophils # (Manual) PT INR Fibrinogen dRVVT Confirm Interp Factor V Activity POC ABG pH POC ABG pCO2 POC ABG pO2 ABG pO2 ABG HCO3 ABG Base Excess ABG Hemoglobin Oxyhemoglobin Sodium Potassium 5.1 H Chloride 95.9 L Carbon Dioxide BUN 52 H Creatinine 1.8 H Glucose 117 H POC Glucose 120 H Lactic Acid Calcium Phosphorus Magnesium Direct Bilirubin AST 103 H ALT 77 H Alkaline Phosphatase 285 H Lactate Dehydrogenase Troponin T C-Reactive Protein Total Protein 6.2 L Albumin 1.8 L Prealbumin 0.180 L Triglycerides Cholesterol LDL Cholesterol Direct HDL Cholesterol Urine pH Urine WBC (Auto) Urine Creatinine Urine Total Protein Fluid Total Protein Vancomycin Trough Rheumatoid Factor Complement C4 Miscellaneous Test Crossmatch 11/06/16 11/06/16 11/06/16 11:56 17:14 23:52 WBC RBC Hgb Hct MCV MCH MCHC RDW Plt Count Lymph % (Auto) [place] % (Auto) Lymph # [place] # Baso # Seg Neutrophils % Seg Neuts % (Manual) Lymphocytes % (Manual) Monocytes % (Manual) Eosinophils % (Manual) Basophils % (Manual) Nucleated RBC % Seg Neutrophils # Seg Neutrophils # Man Lymphocytes # (Manual) Monocytes # (Manual) Eosinophils # (Manual) PT INR Fibrinogen dRVVT Confirm Interp Factor V Activity POC ABG pH POC ABG pCO2 POC ABG pO2 ABG pO2 ABG HCO3 ABG Base Excess ABG Hemoglobin Oxyhemoglobin Sodium Potassium Chloride Carbon Dioxide BUN Creatinine Glucose POC Glucose 141 H 125 H 130 H Lactic Acid Calcium Phosphorus Magnesium Direct Bilirubin AST ALT Alkaline Phosphatase Lactate Dehydrogenase Troponin T C-Reactive Protein Total Protein Albumin Prealbumin Triglycerides Cholesterol LDL Cholesterol Direct HDL Cholesterol Urine pH Urine WBC (Auto) Urine Creatinine Urine Total Protein Fluid Total Protein Vancomycin Trough Rheumatoid Factor Complement C4 Miscellaneous Test Crossmatch 11/07/16 11/07/16 11/07/16 06:30 06:30 09:37 WBC RBC 2.18 L Hgb 6.3 L Hct 19.7 L* MCV MCH MCHC RDW 16.8 H Plt Count Lymph % (Auto) [place] % (Auto) 10.0 H Lymph # [place] # 1.0 H Baso # Seg Neutrophils % Seg Neuts % (Manual) Lymphocytes % (Manual) Monocytes % (Manual) Eosinophils % (Manual) Basophils % (Manual) Nucleated RBC % Seg Neutrophils # Seg Neutrophils # Man Lymphocytes # (Manual) Monocytes # (Manual) Eosinophils # (Manual) PT INR Fibrinogen dRVVT Confirm Interp Factor V Activity POC ABG pH POC ABG pCO2 POC ABG pO2 ABG pO2 ABG HCO3 ABG Base Excess ABG Hemoglobin Oxyhemoglobin Sodium 135 L Potassium Chloride 95.6 L Carbon Dioxide BUN 70 H Creatinine 2.0 H Glucose 126 H POC Glucose Lactic Acid Calcium Phosphorus Magnesium Direct Bilirubin AST ALT Alkaline Phosphatase Lactate Dehydrogenase Troponin T C-Reactive Protein Total Protein Albumin Prealbumin Triglycerides Cholesterol LDL Cholesterol Direct HDL Cholesterol Urine pH Urine WBC (Auto) Urine Creatinine Urine Total Protein Fluid Total Protein Vancomycin Trough Rheumatoid Factor Complement C4 Miscellaneous Test Crossmatch See Detail 11/07/16 11/07/16 11/07/16 12:52 18:51 21:26 WBC RBC Hgb Hct MCV MCH MCHC RDW Plt Count Lymph % (Auto) [place] % (Auto) Lymph # [place] # Baso # Seg Neutrophils % Seg Neuts % (Manual) Lymphocytes % (Manual) Monocytes % (Manual) Eosinophils % (Manual) Basophils % (Manual) Nucleated RBC % Seg Neutrophils # Seg Neutrophils # Man Lymphocytes # (Manual) Monocytes # (Manual) Eosinophils # (Manual) PT INR Fibrinogen dRVVT Confirm Interp Factor V Activity POC ABG pH 7.523 H POC ABG pCO2 34.6 L POC ABG pO2 53 L ABG pO2 ABG HCO3 ABG Base Excess ABG Hemoglobin Oxyhemoglobin Sodium Potassium Chloride Carbon Dioxide BUN Creatinine Glucose POC Glucose 142 H 155 H Lactic Acid Calcium Phosphorus Magnesium Direct Bilirubin AST ALT Alkaline Phosphatase Lactate Dehydrogenase Troponin T C-Reactive Protein Total Protein Albumin Prealbumin Triglycerides Cholesterol LDL Cholesterol Direct HDL Cholesterol Urine pH Urine WBC (Auto) Urine Creatinine Urine Total Protein Fluid Total Protein Vancomycin Trough Rheumatoid Factor Complement C4 Miscellaneous Test Crossmatch 11/07/16 11/08/16 11/08/16 21:34 13:03 23:37 WBC RBC 2.63 L Hgb 7.7 L Hct 22.7 L MCV MCH MCHC RDW 17.0 H Plt Count Lymph % (Auto) [place] % (Auto) Lymph # [place] # Baso # Seg Neutrophils % Seg Neuts % (Manual) Lymphocytes % (Manual) Monocytes % (Manual) Eosinophils % (Manual) Basophils % (Manual) Nucleated RBC % Seg Neutrophils # Seg Neutrophils # Man Lymphocytes # (Manual) Monocytes # (Manual) Eosinophils # (Manual) PT INR Fibrinogen dRVVT Confirm Interp Factor V Activity POC ABG pH 7.478 H POC ABG pCO2 34.0 L POC ABG pO2 50 L ABG pO2 ABG HCO3 ABG Base Excess ABG Hemoglobin Oxyhemoglobin Sodium Potassium Chloride Carbon Dioxide BUN Creatinine Glucose POC Glucose 113 H Lactic Acid Calcium Phosphorus Magnesium Direct Bilirubin AST ALT Alkaline Phosphatase Lactate Dehydrogenase Troponin T C-Reactive Protein Total Protein Albumin Prealbumin Triglycerides Cholesterol LDL Cholesterol Direct HDL Cholesterol Urine pH Urine WBC (Auto) Urine Creatinine Urine Total Protein Fluid Total Protein Vancomycin Trough Rheumatoid Factor Complement C4 Miscellaneous Test Crossmatch 11/09/16 11/09/16 11/09/16 04:35 10:15 18:21 WBC RBC 2.68 L Hgb 7.8 L Hct 23.3 L MCV MCH MCHC RDW 17.0 H Plt Count Lymph % (Auto) [place] % (Auto) 12.1 H Lymph # [place] # 1.1 H Baso # Seg Neutrophils % Seg Neuts % (Manual) Lymphocytes % (Manual) Monocytes % (Manual) Eosinophils % (Manual) Basophils % (Manual) Nucleated RBC % Seg Neutrophils # Seg Neutrophils # Man Lymphocytes # (Manual) Monocytes # (Manual) Eosinophils # (Manual) PT INR Fibrinogen dRVVT Confirm Interp Factor V Activity POC ABG pH POC ABG pCO2 POC ABG pO2 ABG pO2 ABG HCO3 ABG Base Excess ABG Hemoglobin Oxyhemoglobin Sodium Potassium Chloride Carbon Dioxide BUN 51 H Creatinine 1.8 H Glucose POC Glucose 60 L Lactic Acid Calcium 8.3 L Phosphorus Magnesium Direct Bilirubin AST ALT Alkaline Phosphatase Lactate Dehydrogenase Troponin T C-Reactive Protein Total Protein Albumin Prealbumin Triglycerides Cholesterol LDL Cholesterol Direct HDL Cholesterol Urine pH Urine WBC (Auto) Urine Creatinine Urine Total Protein Fluid Total Protein Vancomycin Trough Rheumatoid Factor Complement C4 Miscellaneous Test Crossmatch 11/09/16 11/10/16 11/10/16 18:55 07:00 11:51 WBC RBC Hgb Hct MCV MCH MCHC RDW Plt Count Lymph % (Auto) [place] % (Auto) Lymph # [place] # Baso # Seg Neutrophils % Seg Neuts % (Manual) Lymphocytes % (Manual) Monocytes % (Manual) Eosinophils % (Manual) Basophils % (Manual) Nucleated RBC % Seg Neutrophils # Seg Neutrophils # Man Lymphocytes # (Manual) Monocytes # (Manual) Eosinophils # (Manual) PT INR Fibrinogen dRVVT Confirm Interp Factor V Activity POC ABG pH POC ABG pCO2 POC ABG pO2 ABG pO2 ABG HCO3 ABG Base Excess ABG Hemoglobin Oxyhemoglobin Sodium Potassium 3.0 L D Chloride 97.4 L Carbon Dioxide BUN 28 H Creatinine 1.3 H Glucose POC Glucose 68 L 120 H Lactic Acid Calcium 7.8 L Phosphorus Magnesium Direct Bilirubin AST ALT Alkaline Phosphatase Lactate Dehydrogenase Troponin T C-Reactive Protein Total Protein Albumin Prealbumin Triglycerides Cholesterol LDL Cholesterol Direct HDL Cholesterol Urine pH Urine WBC (Auto) Urine Creatinine Urine Total Protein Fluid Total Protein Vancomycin Trough Rheumatoid Factor Complement C4 Miscellaneous Test Crossmatch 11/10/16 11/11/16 11/11/16 14:20 06:59 06:59 WBC RBC 2.81 L Hgb 8.1 L Hct 24.4 L MCV MCH MCHC RDW 16.4 H Plt Count Lymph % (Auto) [place] % (Auto) 10.8 H Lymph # [place] # 1.0 H Baso # Seg Neutrophils % Seg Neuts % (Manual) Lymphocytes % (Manual) Monocytes % (Manual) Eosinophils % (Manual) Basophils % (Manual) Nucleated RBC % Seg Neutrophils # Seg Neutrophils # Man Lymphocytes # (Manual) Monocytes # (Manual) Eosinophils # (Manual) PT INR Fibrinogen dRVVT Confirm Interp Factor V Activity POC ABG pH POC ABG pCO2 POC ABG pO2 ABG pO2 ABG HCO3 ABG Base Excess ABG Hemoglobin Oxyhemoglobin Sodium Potassium Chloride Carbon Dioxide BUN Creatinine Glucose POC Glucose Lactic Acid Calcium Phosphorus Magnesium Direct Bilirubin AST ALT Alkaline Phosphatase Lactate Dehydrogenase 196 H Troponin T C-Reactive Protein Total Protein 6.1 L Albumin Prealbumin Triglycerides Cholesterol LDL Cholesterol Direct HDL Cholesterol Urine pH Urine WBC (Auto) Urine Creatinine Urine Total Protein Fluid Total Protein < 3.0 L Vancomycin Trough Rheumatoid Factor Complement C4 Miscellaneous Test Crossmatch 11/11/16 11/11/16 11/12/16 06:59 09:50 04:00 WBC RBC Hgb Hct MCV MCH MCHC RDW Plt Count Lymph % (Auto) [place] % (Auto) Lymph # [place] # Baso # Seg Neutrophils % Seg Neuts % (Manual) Lymphocytes % (Manual) Monocytes % (Manual) Eosinophils % (Manual) Basophils % (Manual) Nucleated RBC % Seg Neutrophils # Seg Neutrophils # Man Lymphocytes # (Manual) Monocytes # (Manual) Eosinophils # (Manual) PT INR 1.18 H Fibrinogen dRVVT Confirm Interp Factor V Activity POC ABG pH POC ABG pCO2 POC ABG pO2 ABG pO2 ABG HCO3 ABG Base Excess ABG Hemoglobin Oxyhemoglobin Sodium 136 L 133 L Potassium Chloride 96.1 L 94.8 L Carbon Dioxide 21 L BUN 37 H 42 H Creatinine 1.8 H 2.0 H Glucose POC Glucose Lactic Acid Calcium Phosphorus Magnesium Direct Bilirubin AST ALT Alkaline Phosphatase Lactate Dehydrogenase Troponin T C-Reactive Protein Total Protein Albumin Prealbumin Triglycerides Cholesterol LDL Cholesterol Direct HDL Cholesterol Urine pH Urine WBC (Auto) Urine Creatinine Urine Total Protein Fluid Total Protein Vancomycin Trough Rheumatoid Factor Complement C4 Miscellaneous Test Crossmatch 11/12/16 11/12/16 11/13/16 04:00 23:55 05:53 WBC RBC Hgb 8.9 L Hct 27.2 L MCV MCH MCHC RDW Plt Count Lymph % (Auto) [place] % (Auto) Lymph # [place] # Baso # Seg Neutrophils % Seg Neuts % (Manual) Lymphocytes % (Manual) Monocytes % (Manual) Eosinophils % (Manual) Basophils % (Manual) Nucleated RBC % Seg Neutrophils # Seg Neutrophils # Man Lymphocytes # (Manual) Monocytes # (Manual) Eosinophils # (Manual) PT INR Fibrinogen dRVVT Confirm Interp Factor V Activity POC ABG pH POC ABG pCO2 POC ABG pO2 ABG pO2 ABG HCO3 ABG Base Excess ABG Hemoglobin Oxyhemoglobin Sodium Potassium Chloride Carbon Dioxide BUN Creatinine Glucose POC Glucose 132 H 120 H Lactic Acid Calcium Phosphorus Magnesium Direct Bilirubin AST ALT Alkaline Phosphatase Lactate Dehydrogenase Troponin T C-Reactive Protein Total Protein Albumin Prealbumin Triglycerides Cholesterol LDL Cholesterol Direct HDL Cholesterol Urine pH Urine WBC (Auto) Urine Creatinine Urine Total Protein Fluid Total Protein Vancomycin Trough Rheumatoid Factor Complement C4 Miscellaneous Test Crossmatch 11/13/16 11/13/16 11/13/16 11:43 17:09 23:41 WBC RBC Hgb Hct MCV MCH MCHC RDW Plt Count Lymph % (Auto) [place] % (Auto) Lymph # [place] # Baso # Seg Neutrophils % Seg Neuts % (Manual) Lymphocytes % (Manual) Monocytes % (Manual) Eosinophils % (Manual) Basophils % (Manual) Nucleated RBC % Seg Neutrophils # Seg Neutrophils # Man Lymphocytes # (Manual) Monocytes # (Manual) Eosinophils # (Manual) PT INR Fibrinogen dRVVT Confirm Interp Factor V Activity POC ABG pH POC ABG pCO2 POC ABG pO2 ABG pO2 ABG HCO3 ABG Base Excess ABG Hemoglobin Oxyhemoglobin Sodium Potassium Chloride Carbon Dioxide BUN Creatinine Glucose POC Glucose 114 H 113 H 108 H Lactic Acid Calcium Phosphorus Magnesium Direct Bilirubin AST ALT Alkaline Phosphatase Lactate Dehydrogenase Troponin T C-Reactive Protein Total Protein Albumin Prealbumin Triglycerides Cholesterol LDL Cholesterol Direct HDL Cholesterol Urine pH Urine WBC (Auto) Urine Creatinine Urine Total Protein Fluid Total Protein Vancomycin Trough Rheumatoid Factor Complement C4 Miscellaneous Test Crossmatch 11/13/16 11/15/16 11/15/16 Unknown 00:37 03:30 WBC 11.2 H RBC 2.72 L Hgb 7.6 L Hct 23.4 L MCV MCH MCHC RDW 16.5 H Plt Count Lymph % (Auto) [place] % (Auto) Lymph # [place] # Baso # Seg Neutrophils % Seg Neuts % (Manual) Lymphocytes % (Manual) Monocytes % (Manual) Eosinophils % (Manual) Basophils % (Manual) Nucleated RBC % Seg Neutrophils # Seg Neutrophils # Man Lymphocytes # (Manual) Monocytes # (Manual) Eosinophils # (Manual) PT INR Fibrinogen dRVVT Confirm Interp Factor V Activity POC ABG pH POC ABG pCO2 POC ABG pO2 ABG pO2 ABG HCO3 ABG Base Excess ABG Hemoglobin Oxyhemoglobin Sodium 135 L Potassium Chloride 95.2 L Carbon Dioxide BUN 52 H Creatinine 2.2 H Glucose POC Glucose 108 H Lactic Acid Calcium Phosphorus Magnesium Direct Bilirubin AST ALT Alkaline Phosphatase Lactate Dehydrogenase Troponin T C-Reactive Protein Total Protein Albumin Prealbumin Triglycerides Cholesterol LDL Cholesterol Direct HDL Cholesterol Urine pH Urine WBC (Auto) Urine Creatinine Urine Total Protein Fluid Total Protein Vancomycin Trough Rheumatoid Factor Complement C4 Miscellaneous Test Crossmatch 11/15/16 11/15/16 11/15/16 03:30 05:04 11:50 WBC RBC Hgb Hct MCV MCH MCHC RDW Plt Count Lymph % (Auto) [place] % (Auto) Lymph # [place] # Baso # Seg Neutrophils % Seg Neuts % (Manual) Lymphocytes % (Manual) Monocytes % (Manual) Eosinophils % (Manual) Basophils % (Manual) Nucleated RBC % Seg Neutrophils # Seg Neutrophils # Man Lymphocytes # (Manual) Monocytes # (Manual) Eosinophils # (Manual) PT INR Fibrinogen dRVVT Confirm Interp Factor V Activity POC ABG pH POC ABG pCO2 POC ABG pO2 ABG pO2 ABG HCO3 ABG Base Excess ABG Hemoglobin Oxyhemoglobin Sodium Potassium 3.4 L Chloride Carbon Dioxide BUN 25 H Creatinine 1.5 H Glucose 103 H POC Glucose 121 H 144 H Lactic Acid Calcium Phosphorus Magnesium Direct Bilirubin AST ALT Alkaline Phosphatase Lactate Dehydrogenase Troponin T C-Reactive Protein Total Protein Albumin Prealbumin Triglycerides Cholesterol LDL Cholesterol Direct HDL Cholesterol Urine pH Urine WBC (Auto) Urine Creatinine Urine Total Protein Fluid Total Protein Vancomycin Trough Rheumatoid Factor Complement C4 Miscellaneous Test Crossmatch 11/15/16 11/15/16 11/16/16 21:28 23:20 11:44 WBC RBC Hgb Hct MCV MCH MCHC RDW Plt Count Lymph % (Auto) [place] % (Auto) Lymph # [place] # Baso # Seg Neutrophils % Seg Neuts % (Manual) Lymphocytes % (Manual) Monocytes % (Manual) Eosinophils % (Manual) Basophils % (Manual) Nucleated RBC % Seg Neutrophils # Seg Neutrophils # Man Lymphocytes # (Manual) Monocytes # (Manual) Eosinophils # (Manual) PT INR Fibrinogen dRVVT Confirm Interp Factor V Activity POC ABG pH 7.462 H POC ABG pCO2 POC ABG pO2 71 L ABG pO2 ABG HCO3 ABG Base Excess ABG Hemoglobin Oxyhemoglobin Sodium Potassium Chloride Carbon Dioxide BUN Creatinine Glucose POC Glucose 116 H 133 H Lactic Acid Calcium Phosphorus Magnesium Direct Bilirubin AST ALT Alkaline Phosphatase Lactate Dehydrogenase Troponin T C-Reactive Protein Total Protein Albumin Prealbumin Triglycerides Cholesterol LDL Cholesterol Direct HDL Cholesterol Urine pH Urine WBC (Auto) Urine Creatinine Urine Total Protein Fluid Total Protein Vancomycin Trough Rheumatoid Factor Complement C4 Miscellaneous Test Crossmatch 11/16/16 11/16/16 11/16/16 12:20 17:05 23:35 WBC 11.7 H RBC 2.73 L Hgb 7.6 L Hct 23.7 L MCV MCH MCHC RDW 16.6 H Plt Count Lymph % (Auto) [place] % (Auto) Lymph # [place] # Baso # Seg Neutrophils % Seg Neuts % (Manual) Lymphocytes % (Manual) Monocytes % (Manual) Eosinophils % (Manual) Basophils % (Manual) Nucleated RBC % Seg Neutrophils # Seg Neutrophils # Man Lymphocytes # (Manual) Monocytes # (Manual) Eosinophils # (Manual) PT INR Fibrinogen dRVVT Confirm Interp Factor V Activity POC ABG pH POC ABG pCO2 POC ABG pO2 ABG pO2 ABG HCO3 ABG Base Excess ABG Hemoglobin Oxyhemoglobin Sodium Potassium Chloride Carbon Dioxide BUN Creatinine Glucose POC Glucose 154 H 125 H Lactic Acid Calcium Phosphorus Magnesium Direct Bilirubin AST ALT Alkaline Phosphatase Lactate Dehydrogenase Troponin T C-Reactive Protein Total Protein Albumin Prealbumin Triglycerides Cholesterol LDL Cholesterol Direct HDL Cholesterol Urine pH Urine WBC (Auto) Urine Creatinine Urine Total Protein Fluid Total Protein Vancomycin Trough Rheumatoid Factor Complement C4 Miscellaneous Test Crossmatch 11/17/16 11/17/16 11/17/16 03:20 03:20 03:20 WBC RBC 2.55 L Hgb 7.3 L Hct 21.9 L MCV MCH MCHC RDW 16.6 H Plt Count Lymph % (Auto) [place] % (Auto) 11.5 H Lymph # [place] # 1.1 H Baso # Seg Neutrophils % Seg Neuts % (Manual) Lymphocytes % (Manual) Monocytes % (Manual) Eosinophils % (Manual) Basophils % (Manual) Nucleated RBC % Seg Neutrophils # Seg Neutrophils # Man Lymphocytes # (Manual) Monocytes # (Manual) Eosinophils # (Manual) PT 16.8 H INR 1.37 H Fibrinogen dRVVT Confirm Interp Factor V Activity POC ABG pH POC ABG pCO2 POC ABG pO2 ABG pO2 ABG HCO3 ABG Base Excess ABG Hemoglobin Oxyhemoglobin Sodium Potassium 3.5 L Chloride Carbon Dioxide BUN 21 H Creatinine Glucose POC Glucose Lactic Acid Calcium 7.9 L Phosphorus Magnesium Direct Bilirubin AST ALT Alkaline Phosphatase Lactate Dehydrogenase Troponin T C-Reactive Protein Total Protein Albumin Prealbumin Triglycerides Cholesterol LDL Cholesterol Direct HDL Cholesterol Urine pH Urine WBC (Auto) Urine Creatinine Urine Total Protein Fluid Total Protein Vancomycin Trough Rheumatoid Factor Complement C4 Miscellaneous Test Crossmatch 11/17/16 11/17/16 11/17/16 06:34 11:21 21:22 WBC RBC Hgb Hct MCV MCH MCHC RDW Plt Count Lymph % (Auto) [place] % (Auto) Lymph # [place] # Baso # Seg Neutrophils % Seg Neuts % (Manual) Lymphocytes % (Manual) Monocytes % (Manual) Eosinophils % (Manual) Basophils % (Manual) Nucleated RBC % Seg Neutrophils # Seg Neutrophils # Man Lymphocytes # (Manual) Monocytes # (Manual) Eosinophils # (Manual) PT INR Fibrinogen dRVVT Confirm Interp Factor V Activity POC ABG pH 7.467 H POC ABG pCO2 POC ABG pO2 73 L ABG pO2 ABG HCO3 ABG Base Excess ABG Hemoglobin Oxyhemoglobin Sodium Potassium Chloride Carbon Dioxide BUN Creatinine Glucose POC Glucose 121 H 119 H Lactic Acid Calcium Phosphorus Magnesium Direct Bilirubin AST ALT Alkaline Phosphatase Lactate Dehydrogenase Troponin T C-Reactive Protein Total Protein Albumin Prealbumin Triglycerides Cholesterol LDL Cholesterol Direct HDL Cholesterol Urine pH Urine WBC (Auto) Urine Creatinine Urine Total Protein Fluid Total Protein Vancomycin Trough Rheumatoid Factor Complement C4 Miscellaneous Test Crossmatch 11/18/16 11/18/1611/19/17 12:16 17:19 00:00 WBC RBC Hgb Hct MCV MCH MCHC RDW Plt Count Lymph % (Auto) [place] % (Auto) Lymph # [place] # Baso # Seg Neutrophils % Seg Neuts % (Manual) Lymphocytes % (Manual) Monocytes % (Manual) Eosinophils % (Manual) Basophils % (Manual) Nucleated RBC % Seg Neutrophils # Seg Neutrophils # Man Lymphocytes # (Manual) Monocytes # (Manual) Eosinophils # (Manual) PT INR Fibrinogen dRVVT Confirm Interp Factor V Activity POC ABG pH POC ABG pCO2 POC ABG pO2 ABG pO2 ABG HCO3 ABG Base Excess ABG Hemoglobin Oxyhemoglobin Sodium Potassium Chloride Carbon Dioxide BUN Creatinine Glucose POC Glucose 124 H 162 H 139 H Lactic Acid Calcium Phosphorus Magnesium Direct Bilirubin AST ALT Alkaline Phosphatase Lactate Dehydrogenase Troponin T C-Reactive Protein Total Protein Albumin Prealbumin Triglycerides Cholesterol LDL Cholesterol Direct HDL Cholesterol Urine pH Urine WBC (Auto) Urine Creatinine Urine Total Protein Fluid Total Protein Vancomycin Trough Rheumatoid Factor Complement C4 Miscellaneous Test Crossmatch 11/19/16 11/19/16 11/20/16 05:00 12:43 00:40 WBC RBC Hgb Hct MCV MCH MCHC RDW Plt Count Lymph % (Auto) [place] % (Auto) Lymph # [place] # Baso # Seg Neutrophils % Seg Neuts % (Manual) Lymphocytes % (Manual) Monocytes % (Manual) Eosinophils % (Manual) Basophils % (Manual) Nucleated RBC % Seg Neutrophils # Seg Neutrophils # Man Lymphocytes # (Manual) Monocytes # (Manual) Eosinophils # (Manual) PT INR Fibrinogen dRVVT Confirm Interp Factor V Activity POC ABG pH POC ABG pCO2 POC ABG pO2 ABG pO2 ABG HCO3 ABG Base Excess ABG Hemoglobin Oxyhemoglobin Sodium Potassium Chloride Carbon Dioxide BUN Creatinine Glucose POC Glucose 110 H 125 H 136 H Lactic Acid Calcium Phosphorus Magnesium Direct Bilirubin AST ALT Alkaline Phosphatase Lactate Dehydrogenase Troponin T C-Reactive Protein Total Protein Albumin Prealbumin Triglycerides Cholesterol LDL Cholesterol Direct HDL Cholesterol Urine pH Urine WBC (Auto) Urine Creatinine Urine Total Protein Fluid Total Protein Vancomycin Trough Rheumatoid Factor Complement C4 Miscellaneous Test Crossmatch 11/20/16 11/20/16 11/20/16 05:00 05:00 05:51 WBC 13.1 H RBC 2.74 L Hgb 7.7 L Hct 23.6 L MCV MCH MCHC RDW 16.9 H Plt Count Lymph % (Auto) [place] % (Auto) 10.8 H Lymph # [place] # 1.4 H Baso # Seg Neutrophils % Seg Neuts % (Manual) Lymphocytes % (Manual) Monocytes % (Manual) Eosinophils % (Manual) Basophils % (Manual) Nucleated RBC % Seg Neutrophils # 7.9 H Seg Neutrophils # Man Lymphocytes # (Manual) Monocytes # (Manual) Eosinophils # (Manual) PT INR Fibrinogen dRVVT Confirm Interp Factor V Activity POC ABG pH POC ABG pCO2 POC ABG pO2 ABG pO2 ABG HCO3 ABG Base Excess ABG Hemoglobin Oxyhemoglobin Sodium Potassium Chloride Carbon Dioxide BUN 31 H Creatinine 1.8 H Glucose 129 H POC Glucose 133 H Lactic Acid Calcium Phosphorus Magnesium Direct Bilirubin AST ALT Alkaline Phosphatase Lactate Dehydrogenase Troponin T C-Reactive Protein Total Protein Albumin Prealbumin Triglycerides Cholesterol LDL Cholesterol Direct HDL Cholesterol Urine pH Urine WBC (Auto) Urine Creatinine Urine Total Protein Fluid Total Protein Vancomycin Trough Rheumatoid Factor Complement C4 Miscellaneous Test Crossmatch 11/20/16 11/20/16 11/21/16 12:40 18:10 01:20 WBC RBC Hgb Hct MCV MCH MCHC RDW Plt Count Lymph % (Auto) [place] % (Auto) Lymph # [place] # Baso # Seg Neutrophils % Seg Neuts % (Manual) Lymphocytes % (Manual) Monocytes % (Manual) Eosinophils % (Manual) Basophils % (Manual) Nucleated RBC % Seg Neutrophils # Seg Neutrophils # Man Lymphocytes # (Manual) Monocytes # (Manual) Eosinophils # (Manual) PT INR Fibrinogen dRVVT Confirm Interp Factor V Activity POC ABG pH POC ABG pCO2 POC ABG pO2 ABG pO2 ABG HCO3 ABG Base Excess ABG Hemoglobin Oxyhemoglobin Sodium Potassium Chloride Carbon Dioxide BUN Creatinine Glucose POC Glucose 134 H 138 H 136 H Lactic Acid Calcium Phosphorus Magnesium Direct Bilirubin AST ALT Alkaline Phosphatase Lactate Dehydrogenase Troponin T C-Reactive Protein Total Protein Albumin Prealbumin Triglycerides Cholesterol LDL Cholesterol Direct HDL Cholesterol Urine pH Urine WBC (Auto) Urine Creatinine Urine Total Protein Fluid Total Protein Vancomycin Trough Rheumatoid Factor Complement C4 Miscellaneous Test Crossmatch 11/21/16 11/21/16 11/21/16 07:04 07:45 07:45 WBC 22.0 H RBC 2.91 L Hgb 8.2 L Hct 25.4 L MCV MCH MCHC RDW 17.1 H Plt Count Lymph % (Auto) [place] % (Auto) Lymph # [place] # Baso # Seg Neutrophils % Seg Neuts % (Manual) Lymphocytes % (Manual) 8.0 L Monocytes % (Manual) Eosinophils % (Manual) Basophils % (Manual) Nucleated RBC % Seg Neutrophils # Seg Neutrophils # Man 14.7 H Lymphocytes # (Manual) Monocytes # (Manual) 1.1 H Eosinophils # (Manual) PT INR Fibrinogen dRVVT Confirm Interp Factor V Activity POC ABG pH POC ABG pCO2 POC ABG pO2 ABG pO2 ABG HCO3 ABG Base Excess ABG Hemoglobin Oxyhemoglobin Sodium Potassium Chloride Carbon Dioxide BUN 42 H Creatinine 2.0 H Glucose POC Glucose 108 H Lactic Acid Calcium Phosphorus Magnesium Direct Bilirubin AST ALT Alkaline Phosphatase Lactate Dehydrogenase Troponin T C-Reactive Protein Total Protein Albumin Prealbumin Triglycerides Cholesterol LDL Cholesterol Direct HDL Cholesterol Urine pH Urine WBC (Auto) Urine Creatinine Urine Total Protein Fluid Total Protein Vancomycin Trough Rheumatoid Factor Complement C4 Miscellaneous Test Crossmatch 11/21/16 11/21/16 11/21/16 08:38 10:09 11:20 WBC RBC Hgb Hct MCV MCH MCHC RDW Plt Count Lymph % (Auto) [place] % (Auto) Lymph # [place] # Baso # Seg Neutrophils % Seg Neuts % (Manual) Lymphocytes % (Manual) Monocytes % (Manual) Eosinophils % (Manual) Basophils % (Manual) Nucleated RBC % Seg Neutrophils # Seg Neutrophils # Man Lymphocytes # (Manual) Monocytes # (Manual) Eosinophils # (Manual) PT INR Fibrinogen dRVVT Confirm Interp Factor V Activity POC ABG pH 7.346 L POC ABG pCO2 34.4 L POC ABG pO2 314 H ABG pO2 ABG HCO3 ABG Base Excess ABG Hemoglobin Oxyhemoglobin Sodium Potassium Chloride Carbon Dioxide BUN Creatinine Glucose POC Glucose 195 H 153 H Lactic Acid Calcium Phosphorus Magnesium Direct Bilirubin AST ALT Alkaline Phosphatase Lactate Dehydrogenase Troponin T C-Reactive Protein Total Protein Albumin Prealbumin Triglycerides Cholesterol LDL Cholesterol Direct HDL Cholesterol Urine pH Urine WBC (Auto) Urine Creatinine Urine Total Protein Fluid Total Protein Vancomycin Trough Rheumatoid Factor Complement C4 Miscellaneous Test Crossmatch 11/21/16 11/22/16 11/22/16 23:37 04:48 05:00 WBC 29.7 H RBC 2.73 L Hgb 7.5 L Hct 24.2 L MCV MCH 27 L MCHC RDW 17.4 H Plt Count Lymph % (Auto) [place] % (Auto) Lymph # [place] # Baso # Seg Neutrophils % Seg Neuts % (Manual) Lymphocytes % (Manual) 7.0 L Monocytes % (Manual) Eosinophils % (Manual) Basophils % (Manual) Nucleated RBC % Seg Neutrophils # Seg Neutrophils # Man 15.4 H Lymphocytes # (Manual) Monocytes # (Manual) Eosinophils # (Manual) PT INR Fibrinogen dRVVT Confirm Interp Factor V Activity POC ABG pH POC ABG pCO2 24.6 L POC ABG pO2 189 H ABG pO2 ABG HCO3 ABG Base Excess ABG Hemoglobin Oxyhemoglobin Sodium Potassium Chloride Carbon Dioxide BUN Creatinine Glucose POC Glucose 65 L Lactic Acid Calcium Phosphorus Magnesium Direct Bilirubin AST ALT Alkaline Phosphatase Lactate Dehydrogenase Troponin T C-Reactive Protein Total Protein Albumin Prealbumin Triglycerides Cholesterol LDL Cholesterol Direct HDL Cholesterol Urine pH Urine WBC (Auto) Urine Creatinine Urine Total Protein Fluid Total Protein Vancomycin Trough Rheumatoid Factor Complement C4 Miscellaneous Test Crossmatch 11/22/16 11/23/16 11/23/16 05:00 03:44 04:06 WBC RBC 2.52 L Hgb 7.2 L Hct 21.5 L MCV MCH MCHC RDW 17.1 H Plt Count Lymph % (Auto) [place] % (Auto) 12.4 H Lymph # [place] # 1.4 H Baso # Seg Neutrophils % Seg Neuts % (Manual) Lymphocytes % (Manual) Monocytes % (Manual) Eosinophils % (Manual) Basophils % (Manual) Nucleated RBC % Seg Neutrophils # Seg Neutrophils # Man Lymphocytes # (Manual) Monocytes # (Manual) Eosinophils # (Manual) PT INR Fibrinogen dRVVT Confirm Interp Factor V Activity POC ABG pH 7.493 H POC ABG pCO2 29.5 L POC ABG pO2 49 L ABG pO2 ABG HCO3 ABG Base Excess ABG Hemoglobin Oxyhemoglobin Sodium 134 L Potassium Chloride 95.9 L Carbon Dioxide 14 L D BUN 51 H Creatinine 2.6 H Glucose POC Glucose Lactic Acid Calcium Phosphorus Magnesium Direct Bilirubin AST ALT Alkaline Phosphatase Lactate Dehydrogenase Troponin T C-Reactive Protein Total Protein Albumin Prealbumin Triglycerides Cholesterol LDL Cholesterol Direct HDL Cholesterol Urine pH Urine WBC (Auto) Urine Creatinine Urine Total Protein Fluid Total Protein Vancomycin Trough Rheumatoid Factor Complement C4 Miscellaneous Test Crossmatch 11/23/16 11/23/16 11/24/16 04:06 11:29 06:39 WBC RBC Hgb Hct MCV MCH MCHC RDW Plt Count Lymph % (Auto) [place] % (Auto) Lymph # [place] # Baso # Seg Neutrophils % Seg Neuts % (Manual) Lymphocytes % (Manual) Monocytes % (Manual) Eosinophils % (Manual) Basophils % (Manual) Nucleated RBC % Seg Neutrophils # Seg Neutrophils # Man Lymphocytes # (Manual) Monocytes # (Manual) Eosinophils # (Manual) PT INR Fibrinogen dRVVT Confirm Interp Factor V Activity POC ABG pH POC ABG pCO2 POC ABG pO2 ABG pO2 ABG HCO3 ABG Base Excess ABG Hemoglobin Oxyhemoglobin Sodium 136 L Potassium Chloride 95.2 L Carbon Dioxide BUN 60 H Creatinine 2.9 H Glucose POC Glucose 69 L 305 H Lactic Acid Calcium Phosphorus Magnesium 1.60 L Direct Bilirubin AST ALT Alkaline Phosphatase Lactate Dehydrogenase Troponin T C-Reactive Protein Total Protein Albumin Prealbumin Triglycerides Cholesterol LDL Cholesterol Direct HDL Cholesterol Urine pH Urine WBC (Auto) Urine Creatinine Urine Total Protein Fluid Total Protein Vancomycin Trough Rheumatoid Factor Complement C4 Miscellaneous Test Crossmatch 11/24/16 11/24/16 11/24/16 06:43 08:08 08:08 WBC 11.2 H RBC 2.47 L Hgb 6.8 L Hct 20.6 L MCV MCH MCHC RDW 17.0 H Plt Count Lymph % (Auto) [place] % (Auto) 10.3 H Lymph # [place] # 1.2 H Baso # Seg Neutrophils % Seg Neuts % (Manual) Lymphocytes % (Manual) Monocytes % (Manual) Eosinophils % (Manual) Basophils % (Manual) Nucleated RBC % Seg Neutrophils # Seg Neutrophils # Man Lymphocytes # (Manual) Monocytes # (Manual) Eosinophils # (Manual) PT INR Fibrinogen dRVVT Confirm Interp Factor V Activity POC ABG pH POC ABG pCO2 POC ABG pO2 ABG pO2 ABG HCO3 ABG Base Excess ABG Hemoglobin Oxyhemoglobin Sodium 135 L Potassium Chloride 96.3 L Carbon Dioxide BUN 61 H Creatinine 3.1 H Glucose POC Glucose 62 L Lactic Acid Calcium 8.2 L Phosphorus Magnesium Direct Bilirubin AST ALT Alkaline Phosphatase Lactate Dehydrogenase Troponin T C-Reactive Protein Total Protein Albumin Prealbumin Triglycerides Cholesterol LDL Cholesterol Direct HDL Cholesterol Urine pH Urine WBC (Auto) Urine Creatinine Urine Total Protein Fluid Total Protein Vancomycin Trough Rheumatoid Factor Complement C4 Miscellaneous Test Crossmatch 11/24/16 11/24/16 11/24/16 08:34 11:20 12:41 WBC RBC Hgb Hct MCV MCH MCHC RDW Plt Count Lymph % (Auto) [place] % (Auto) Lymph # [place] # Baso # Seg Neutrophils % Seg Neuts % (Manual) Lymphocytes % (Manual) Monocytes % (Manual) Eosinophils % (Manual) Basophils % (Manual) Nucleated RBC % Seg Neutrophils # Seg Neutrophils # Man Lymphocytes # (Manual) Monocytes # (Manual) Eosinophils # (Manual) PT INR Fibrinogen dRVVT Confirm Interp Factor V Activity POC ABG pH POC ABG pCO2 POC ABG pO2 ABG pO2 ABG HCO3 ABG Base Excess ABG Hemoglobin Oxyhemoglobin Sodium Potassium Chloride Carbon Dioxide BUN Creatinine Glucose POC Glucose 108 H Lactic Acid Calcium Phosphorus Magnesium 1.60 L Direct Bilirubin AST ALT Alkaline Phosphatase Lactate Dehydrogenase Troponin T C-Reactive Protein Total Protein Albumin Prealbumin Triglycerides Cholesterol LDL Cholesterol Direct HDL Cholesterol Urine pH Urine WBC (Auto) Urine Creatinine Urine Total Protein Fluid Total Protein Vancomycin Trough Rheumatoid Factor Complement C4 Miscellaneous Test Crossmatch See Detail 11/25/16 11/25/16 11/25/16 00:03 04:42 04:42 WBC RBC 3.03 L Hgb 8.6 L Hct 25.3 L MCV MCH MCHC RDW 16.2 H Plt Count Lymph % (Auto) [place] % (Auto) 8.1 H Lymph # [place] # Baso # Seg Neutrophils % 71.3 H Seg Neuts % (Manual) Lymphocytes % (Manual) Monocytes % (Manual) Eosinophils % (Manual) Basophils % (Manual) Nucleated RBC % Seg Neutrophils # Seg Neutrophils # Man Lymphocytes # (Manual) Monocytes # (Manual) Eosinophils # (Manual) PT INR Fibrinogen dRVVT Confirm Interp Factor V Activity POC ABG pH POC ABG pCO2 POC ABG pO2 ABG pO2 ABG HCO3 ABG Base Excess ABG Hemoglobin Oxyhemoglobin Sodium Potassium Chloride Carbon Dioxide BUN 61 H Creatinine 3.0 H Glucose 102 H POC Glucose 113 H Lactic Acid Calcium 8.2 L Phosphorus Magnesium Direct Bilirubin AST ALT Alkaline Phosphatase 142 H Lactate Dehydrogenase Troponin T C-Reactive Protein Total Protein 5.7 L Albumin 1.5 L Prealbumin Triglycerides Cholesterol LDL Cholesterol Direct HDL Cholesterol Urine pH Urine WBC (Auto) Urine Creatinine Urine Total Protein Fluid Total Protein Vancomycin Trough Rheumatoid Factor Complement C4 Miscellaneous Test Crossmatch 11/25/16 11/25/16 11/25/16 05:12 11:31 14:12 WBC RBC Hgb Hct MCV MCH MCHC RDW Plt Count Lymph % (Auto) [place] % (Auto) Lymph # [place] # Baso # Seg Neutrophils % Seg Neuts % (Manual) Lymphocytes % (Manual) Monocytes % (Manual) Eosinophils % (Manual) Basophils % (Manual) Nucleated RBC % Seg Neutrophils # Seg Neutrophils # Man Lymphocytes # (Manual) Monocytes # (Manual) Eosinophils # (Manual) PT INR Fibrinogen dRVVT Confirm Interp Factor V Activity POC ABG pH 7.487 H POC ABG pCO2 POC ABG pO2 153 H ABG pO2 ABG HCO3 ABG Base Excess ABG Hemoglobin Oxyhemoglobin Sodium Potassium Chloride Carbon Dioxide BUN Creatinine Glucose POC Glucose 131 H 140 H Lactic Acid Calcium Phosphorus Magnesium Direct Bilirubin AST ALT Alkaline Phosphatase Lactate Dehydrogenase Troponin T C-Reactive Protein Total Protein Albumin Prealbumin Triglycerides Cholesterol LDL Cholesterol Direct HDL Cholesterol Urine pH Urine WBC (Auto) Urine Creatinine Urine Total Protein Fluid Total Protein Vancomycin Trough Rheumatoid Factor Complement C4 Miscellaneous Test Crossmatch 11/25/16 11/26/16 11/26/16 17:23 00:09 05:13 WBC RBC 2.94 L Hgb 8.4 L Hct 24.6 L MCV MCH MCHC RDW 16.4 H Plt Count Lymph % (Auto) [place] % (Auto) 12.3 H Lymph # [place] # 1.1 H Baso # Seg Neutrophils % Seg Neuts % (Manual) Lymphocytes % (Manual) Monocytes % (Manual) Eosinophils % (Manual) Basophils % (Manual) Nucleated RBC % Seg Neutrophils # Seg Neutrophils # Man Lymphocytes # (Manual) Monocytes # (Manual) Eosinophils # (Manual) PT INR Fibrinogen dRVVT Confirm Interp Factor V Activity POC ABG pH POC ABG pCO2 POC ABG pO2 ABG pO2 ABG HCO3 ABG Base Excess ABG Hemoglobin Oxyhemoglobin Sodium Potassium Chloride Carbon Dioxide BUN Creatinine Glucose POC Glucose 146 H 112 H Lactic Acid Calcium Phosphorus Magnesium Direct Bilirubin AST ALT Alkaline Phosphatase Lactate Dehydrogenase Troponin T C-Reactive Protein Total Protein Albumin Prealbumin Triglycerides Cholesterol LDL Cholesterol Direct HDL Cholesterol Urine pH Urine WBC (Auto) Urine Creatinine Urine Total Protein Fluid Total Protein Vancomycin Trough Rheumatoid Factor Complement C4 Miscellaneous Test Crossmatch 11/26/16 11/26/16 11/26/16 05:13 05:28 11:53 WBC RBC Hgb Hct MCV MCH MCHC RDW Plt Count Lymph % (Auto) [place] % (Auto) Lymph # [place] # Baso # Seg Neutrophils % Seg Neuts % (Manual) Lymphocytes % (Manual) Monocytes % (Manual) Eosinophils % (Manual) Basophils % (Manual) Nucleated RBC % Seg Neutrophils # Seg Neutrophils # Man Lymphocytes # (Manual) Monocytes # (Manual) Eosinophils # (Manual) PT INR Fibrinogen dRVVT Confirm Interp Factor V Activity POC ABG pH POC ABG pCO2 POC ABG pO2 ABG pO2 ABG HCO3 ABG Base Excess ABG Hemoglobin Oxyhemoglobin Sodium Potassium Chloride 97.8 L Carbon Dioxide BUN 37 H Creatinine 2.0 H Glucose 109 H POC Glucose 117 H 111 H Lactic Acid Calcium 7.9 L Phosphorus 1.80 L D Magnesium Direct Bilirubin AST ALT Alkaline Phosphatase Lactate Dehydrogenase Troponin T C-Reactive Protein Total Protein Albumin Prealbumin Triglycerides Cholesterol LDL Cholesterol Direct HDL Cholesterol Urine pH Urine WBC (Auto) Urine Creatinine Urine Total Protein Fluid Total Protein Vancomycin Trough Rheumatoid Factor Complement C4 Miscellaneous Test Crossmatch 11/26/16 11/27/16 11/27/16 17:14 04:50 06:02 WBC RBC Hgb Hct MCV MCH MCHC RDW Plt Count Lymph % (Auto) [place] % (Auto) Lymph # [place] # Baso # Seg Neutrophils % Seg Neuts % (Manual) Lymphocytes % (Manual) Monocytes % (Manual) Eosinophils % (Manual) Basophils % (Manual) Nucleated RBC % Seg Neutrophils # Seg Neutrophils # Man Lymphocytes # (Manual) Monocytes # (Manual) Eosinophils # (Manual) PT INR Fibrinogen dRVVT Confirm Interp Factor V Activity POC ABG pH POC ABG pCO2 POC ABG pO2 ABG pO2 75.2 L ABG HCO3 26.4 H ABG Base Excess ABG Hemoglobin 7.6 L Oxyhemoglobin 94.8 L Sodium Potassium Chloride Carbon Dioxide BUN 49 H Creatinine 2.3 H Glucose POC Glucose 115 H Lactic Acid Calcium Phosphorus 1.50 L Magnesium Direct Bilirubin AST ALT Alkaline Phosphatase Lactate Dehydrogenase Troponin T C-Reactive Protein Total Protein Albumin Prealbumin Triglycerides Cholesterol LDL Cholesterol Direct HDL Cholesterol Urine pH Urine WBC (Auto) Urine Creatinine Urine Total Protein Fluid Total Protein Vancomycin Trough Rheumatoid Factor Complement C4 Miscellaneous Test Crossmatch 11/27/16 11/27/16 11/27/16 06:02 11:25 17:25 WBC 11.6 H RBC 2.75 L Hgb 7.6 L Hct 23.4 L MCV MCH MCHC RDW 16.5 H Plt Count Lymph % (Auto) [place] % (Auto) Lymph # [place] # Baso # Seg Neutrophils % Seg Neuts % (Manual) Lymphocytes % (Manual) Monocytes % (Manual) Eosinophils % (Manual) Basophils % (Manual) Nucleated RBC % Seg Neutrophils # Seg Neutrophils # Man Lymphocytes # (Manual) Monocytes # (Manual) Eosinophils # (Manual) PT INR Fibrinogen dRVVT Confirm Interp Factor V Activity POC ABG pH POC ABG pCO2 POC ABG pO2 ABG pO2 ABG HCO3 ABG Base Excess ABG Hemoglobin Oxyhemoglobin Sodium Potassium Chloride Carbon Dioxide BUN Creatinine Glucose POC Glucose 114 H 126 H Lactic Acid Calcium Phosphorus Magnesium Direct Bilirubin AST ALT Alkaline Phosphatase Lactate Dehydrogenase Troponin T C-Reactive Protein Total Protein Albumin Prealbumin Triglycerides Cholesterol LDL Cholesterol Direct HDL Cholesterol Urine pH Urine WBC (Auto) Urine Creatinine Urine Total Protein Fluid Total Protein Vancomycin Trough Rheumatoid Factor Complement C4 Miscellaneous Test Crossmatch 11/28/16 11/28/16 11/28/16 04:45 05:33 05:44 WBC RBC Hgb Hct MCV MCH MCHC RDW Plt Count Lymph % (Auto) [place] % (Auto) Lymph # [place] # Baso # Seg Neutrophils % Seg Neuts % (Manual) Lymphocytes % (Manual) Monocytes % (Manual) Eosinophils % (Manual) Basophils % (Manual) Nucleated RBC % Seg Neutrophils # Seg Neutrophils # Man Lymphocytes # (Manual) Monocytes # (Manual) Eosinophils # (Manual) PT INR Fibrinogen dRVVT Confirm Interp Factor V Activity POC ABG pH POC ABG pCO2 POC ABG pO2 ABG pO2 99.3 H ABG HCO3 ABG Base Excess ABG Hemoglobin 8.3 L Oxyhemoglobin Sodium Potassium Chloride Carbon Dioxide BUN 63 H Creatinine 2.4 H Glucose 102 H POC Glucose 108 H Lactic Acid Calcium Phosphorus 1.80 L Magnesium Direct Bilirubin AST ALT Alkaline Phosphatase Lactate Dehydrogenase Troponin T C-Reactive Protein Total Protein Albumin Prealbumin Triglycerides Cholesterol LDL Cholesterol Direct HDL Cholesterol Urine pH Urine WBC (Auto) Urine Creatinine Urine Total Protein Fluid Total Protein Vancomycin Trough Rheumatoid Factor Complement C4 Miscellaneous Test Crossmatch 11/28/16 11/28/16 11/28/16 12:31 16:09 23:46 WBC RBC Hgb Hct MCV MCH MCHC RDW Plt Count Lymph % (Auto) [place] % (Auto) Lymph # [place] # Baso # Seg Neutrophils % Seg Neuts % (Manual) Lymphocytes % (Manual) Monocytes % (Manual) Eosinophils % (Manual) Basophils % (Manual) Nucleated RBC % Seg Neutrophils # Seg Neutrophils # Man Lymphocytes # (Manual) Monocytes # (Manual) Eosinophils # (Manual) PT INR Fibrinogen dRVVT Confirm Interp Factor V Activity POC ABG pH POC ABG pCO2 POC ABG pO2 ABG pO2 ABG HCO3 ABG Base Excess ABG Hemoglobin Oxyhemoglobin Sodium Potassium Chloride Carbon Dioxide BUN Creatinine Glucose POC Glucose 126 H 111 H 119 H Lactic Acid Calcium Phosphorus Magnesium Direct Bilirubin AST ALT Alkaline Phosphatase Lactate Dehydrogenase Troponin T C-Reactive Protein Total Protein Albumin Prealbumin Triglycerides Cholesterol LDL Cholesterol Direct HDL Cholesterol Urine pH Urine WBC (Auto) Urine Creatinine Urine Total Protein Fluid Total Protein Vancomycin Trough Rheumatoid Factor Complement C4 Miscellaneous Test Crossmatch 11/29/16 11/29/16 11/29/16 03:33 04:52 05:10 WBC RBC Hgb Hct MCV MCH MCHC RDW Plt Count Lymph % (Auto) [place] % (Auto) Lymph # [place] # Baso # Seg Neutrophils % Seg Neuts % (Manual) Lymphocytes % (Manual) Monocytes % (Manual) Eosinophils % (Manual) Basophils % (Manual) Nucleated RBC % Seg Neutrophils # Seg Neutrophils # Man Lymphocytes # (Manual) Monocytes # (Manual) Eosinophils # (Manual) PT INR Fibrinogen dRVVT Confirm Interp Factor V Activity POC ABG pH POC ABG pCO2 POC ABG pO2 ABG pO2 ABG HCO3 ABG Base Excess ABG Hemoglobin 7.0 L Oxyhemoglobin 94.9 L Sodium Potassium Chloride Carbon Dioxide BUN 73 H Creatinine 2.7 H Glucose POC Glucose 108 H Lactic Acid Calcium Phosphorus Magnesium Direct Bilirubin AST ALT Alkaline Phosphatase Lactate Dehydrogenase Troponin T C-Reactive Protein Total Protein Albumin Prealbumin Triglycerides Cholesterol LDL Cholesterol Direct HDL Cholesterol Urine pH Urine WBC (Auto) Urine Creatinine Urine Total Protein Fluid Total Protein Vancomycin Trough Rheumatoid Factor Complement C4 Miscellaneous Test Crossmatch 11/29/16 11/29/16 11/29/16 12:16 18:05 23:46 WBC RBC Hgb Hct MCV MCH MCHC RDW Plt Count Lymph % (Auto) [place] % (Auto) Lymph # [place] # Baso # Seg Neutrophils % Seg Neuts % (Manual) Lymphocytes % (Manual) Monocytes % (Manual) Eosinophils % (Manual) Basophils % (Manual) Nucleated RBC % Seg Neutrophils # Seg Neutrophils # Man Lymphocytes # (Manual) Monocytes # (Manual) Eosinophils # (Manual) PT INR Fibrinogen dRVVT Confirm Interp Factor V Activity POC ABG pH POC ABG pCO2 POC ABG pO2 ABG pO2 ABG HCO3 ABG Base Excess ABG Hemoglobin Oxyhemoglobin Sodium Potassium Chloride Carbon Dioxide BUN Creatinine Glucose POC Glucose 133 H 146 H 141 H Lactic Acid Calcium Phosphorus Magnesium Direct Bilirubin AST ALT Alkaline Phosphatase Lactate Dehydrogenase Troponin T C-Reactive Protein Total Protein Albumin Prealbumin Triglycerides Cholesterol LDL Cholesterol Direct HDL Cholesterol Urine pH Urine WBC (Auto) Urine Creatinine Urine Total Protein Fluid Total Protein Vancomycin Trough Rheumatoid Factor Complement C4 Miscellaneous Test Crossmatch 11/30/16 11/30/16 11/30/16 04:17 04:17 04:32 WBC 12.0 H RBC 2.80 L Hgb 7.8 L Hct 23.6 L MCV MCH MCHC RDW 16.6 H Plt Count Lymph % (Auto) [place] % (Auto) 11.3 H Lymph # [place] # 1.4 H Baso # Seg Neutrophils % Seg Neuts % (Manual) Lymphocytes % (Manual) Monocytes % (Manual) Eosinophils % (Manual) Basophils % (Manual) Nucleated RBC % Seg Neutrophils # 8.2 H Seg Neutrophils # Man Lymphocytes # (Manual) Monocytes # (Manual) Eosinophils # (Manual) PT INR Fibrinogen dRVVT Confirm Interp Factor V Activity POC ABG pH POC ABG pCO2 POC ABG pO2 ABG pO2 ABG HCO3 ABG Base Excess ABG Hemoglobin Oxyhemoglobin Sodium 169 H* D Potassium 5.1 H Chloride 121.5 H Carbon Dioxide BUN 34 H Creatinine 1.3 H D Glucose 133 H POC Glucose 131 H Lactic Acid Calcium 10.3 H Phosphorus Magnesium Direct Bilirubin AST ALT Alkaline Phosphatase Lactate Dehydrogenase Troponin T C-Reactive Protein Total Protein Albumin Prealbumin Triglycerides Cholesterol LDL Cholesterol Direct HDL Cholesterol Urine pH Urine WBC (Auto) Urine Creatinine Urine Total Protein Fluid Total Protein Vancomycin Trough Rheumatoid Factor Complement C4 Miscellaneous Test Crossmatch 11/30/16 11/30/16 11/30/16 05:45 11:10 17:26 WBC RBC Hgb Hct MCV MCH MCHC RDW Plt Count Lymph % (Auto) [place] % (Auto) Lymph # [place] # Baso # Seg Neutrophils % Seg Neuts % (Manual) Lymphocytes % (Manual) Monocytes % (Manual) Eosinophils % (Manual) Basophils % (Manual) Nucleated RBC % Seg Neutrophils # Seg Neutrophils # Man Lymphocytes # (Manual) Monocytes # (Manual) Eosinophils # (Manual) PT INR Fibrinogen dRVVT Confirm Interp Factor V Activity POC ABG pH POC ABG pCO2 POC ABG pO2 ABG pO2 ABG HCO3 ABG Base Excess ABG Hemoglobin Oxyhemoglobin Sodium Potassium Chloride Carbon Dioxide BUN 45 H Creatinine 1.6 H Glucose 131 H POC Glucose 146 H 134 H Lactic Acid Calcium Phosphorus Magnesium Direct Bilirubin AST ALT Alkaline Phosphatase Lactate Dehydrogenase Troponin T C-Reactive Protein Total Protein Albumin Prealbumin Triglycerides Cholesterol LDL Cholesterol Direct HDL Cholesterol Urine pH Urine WBC (Auto) Urine Creatinine Urine Total Protein Fluid Total Protein Vancomycin Trough Rheumatoid Factor Complement C4 Miscellaneous Test Crossmatch 11/30/16 12/01/16 12/01/16 23:35 00:06 03:35 WBC RBC Hgb Hct MCV MCH MCHC RDW Plt Count Lymph % (Auto) [place] % (Auto) Lymph # [place] # Baso # Seg Neutrophils % Seg Neuts % (Manual) Lymphocytes % (Manual) Monocytes % (Manual) Eosinophils % (Manual) Basophils % (Manual) Nucleated RBC % Seg Neutrophils # Seg Neutrophils # Man Lymphocytes # (Manual) Monocytes # (Manual) Eosinophils # (Manual) PT INR Fibrinogen dRVVT Confirm Interp Factor V Activity POC ABG pH POC ABG pCO2 POC ABG pO2 ABG pO2 ABG HCO3 ABG Base Excess ABG Hemoglobin 6.9 L Oxyhemoglobin Sodium Potassium Chloride Carbon Dioxide BUN 58 H Creatinine 1.8 H Glucose 146 H POC Glucose 151 H Lactic Acid Calcium Phosphorus Magnesium Direct Bilirubin AST ALT Alkaline Phosphatase Lactate Dehydrogenase Troponin T C-Reactive Protein Total Protein Albumin Prealbumin Triglycerides Cholesterol LDL Cholesterol Direct HDL Cholesterol Urine pH Urine WBC (Auto) Urine Creatinine Urine Total Protein Fluid Total Protein Vancomycin Trough Rheumatoid Factor Complement C4 Miscellaneous Test Crossmatch 12/01/16 12/01/16 12/01/16 03:35 05:47 11:52 WBC 12.3 H RBC 2.82 L Hgb 7.8 L Hct 23.7 L MCV MCH MCHC RDW 16.7 H Plt Count Lymph % (Auto) [place] % (Auto) 9.8 H Lymph # [place] # 1.2 H Baso # Seg Neutrophils % Seg Neuts % (Manual) Lymphocytes % (Manual) Monocytes % (Manual) Eosinophils % (Manual) Basophils % (Manual) Nucleated RBC % Seg Neutrophils # 8.4 H Seg Neutrophils # Man Lymphocytes # (Manual) Monocytes # (Manual) Eosinophils # (Manual) PT INR Fibrinogen dRVVT Confirm Interp Factor V Activity POC ABG pH POC ABG pCO2 POC ABG pO2 ABG pO2 ABG HCO3 ABG Base Excess ABG Hemoglobin Oxyhemoglobin Sodium Potassium Chloride Carbon Dioxide BUN Creatinine Glucose POC Glucose 152 H 152 H Lactic Acid Calcium Phosphorus Magnesium Direct Bilirubin AST ALT Alkaline Phosphatase Lactate Dehydrogenase Troponin T C-Reactive Protein Total Protein Albumin Prealbumin Triglycerides Cholesterol LDL Cholesterol Direct HDL Cholesterol Urine pH Urine WBC (Auto) Urine Creatinine Urine Total Protein Fluid Total Protein Vancomycin Trough Rheumatoid Factor Complement C4 Miscellaneous Test Crossmatch 12/01/16 12/01/16 12/02/16 17:40 23:41 05:00 WBC RBC Hgb Hct MCV MCH MCHC RDW Plt Count Lymph % (Auto) [place] % (Auto) Lymph # [place] # Baso # Seg Neutrophils % Seg Neuts % (Manual) Lymphocytes % (Manual) Monocytes % (Manual) Eosinophils % (Manual) Basophils % (Manual) Nucleated RBC % Seg Neutrophils # Seg Neutrophils # Man Lymphocytes # (Manual) Monocytes # (Manual) Eosinophils # (Manual) PT INR Fibrinogen dRVVT Confirm Interp Factor V Activity POC ABG pH POC ABG pCO2 POC ABG pO2 ABG pO2 ABG HCO3 ABG Base Excess ABG Hemoglobin Oxyhemoglobin Sodium Potassium Chloride Carbon Dioxide BUN 45 H Creatinine Glucose 115 H POC Glucose 140 H 144 H Lactic Acid Calcium Phosphorus Magnesium Direct Bilirubin AST ALT Alkaline Phosphatase Lactate Dehydrogenase Troponin T C-Reactive Protein Total Protein Albumin Prealbumin Triglycerides Cholesterol LDL Cholesterol Direct HDL Cholesterol Urine pH Urine WBC (Auto) Urine Creatinine Urine Total Protein Fluid Total Protein Vancomycin Trough Rheumatoid Factor Complement C4 Miscellaneous Test Crossmatch 12/02/16 12/02/16 12/02/16 05:31 11:20 17:38 WBC RBC Hgb Hct MCV MCH MCHC RDW Plt Count Lymph % (Auto) [place] % (Auto) Lymph # [place] # Baso # Seg Neutrophils % Seg Neuts % (Manual) Lymphocytes % (Manual) Monocytes % (Manual) Eosinophils % (Manual) Basophils % (Manual) Nucleated RBC % Seg Neutrophils # Seg Neutrophils # Man Lymphocytes # (Manual) Monocytes # (Manual) Eosinophils # (Manual) PT INR Fibrinogen dRVVT Confirm Interp Factor V Activity POC ABG pH POC ABG pCO2 POC ABG pO2 ABG pO2 ABG HCO3 ABG Base Excess ABG Hemoglobin Oxyhemoglobin Sodium Potassium Chloride Carbon Dioxide BUN Creatinine Glucose POC Glucose 136 H 177 H 139 H Lactic Acid Calcium Phosphorus Magnesium Direct Bilirubin AST ALT Alkaline Phosphatase Lactate Dehydrogenase Troponin T C-Reactive Protein Total Protein Albumin Prealbumin Triglycerides Cholesterol LDL Cholesterol Direct HDL Cholesterol Urine pH Urine WBC (Auto) Urine Creatinine Urine Total Protein Fluid Total Protein Vancomycin Trough Rheumatoid Factor Complement C4 Miscellaneous Test Crossmatch 12/02/16 12/03/16 12/03/16 23:43 04:00 04:00 WBC 20.4 H RBC 2.74 L Hgb 7.4 L Hct 23.6 L MCV MCH 27 L MCHC RDW 17.1 H Plt Count Lymph % (Auto) [place] % (Auto) Lymph # [place] # Baso # Seg Neutrophils % Seg Neuts % (Manual) 31.0 L Lymphocytes % (Manual) Monocytes % (Manual) Eosinophils % (Manual) Basophils % (Manual) Nucleated RBC % Seg Neutrophils # Seg Neutrophils # Man Lymphocytes # (Manual) Monocytes # (Manual) Eosinophils # (Manual) PT INR Fibrinogen dRVVT Confirm Interp Factor V Activity POC ABG pH POC ABG pCO2 POC ABG pO2 ABG pO2 ABG HCO3 ABG Base Excess ABG Hemoglobin Oxyhemoglobin Sodium Potassium Chloride Carbon Dioxide BUN 61 H Creatinine 1.6 H Glucose 119 H POC Glucose 158 H Lactic Acid Calcium Phosphorus Magnesium Direct Bilirubin AST ALT Alkaline Phosphatase Lactate Dehydrogenase Troponin T C-Reactive Protein Total Protein Albumin Prealbumin Triglycerides Cholesterol LDL Cholesterol Direct HDL Cholesterol Urine pH Urine WBC (Auto) Urine Creatinine Urine Total Protein Fluid Total Protein Vancomycin Trough Rheumatoid Factor Complement C4 Miscellaneous Test Crossmatch 12/03/16 12/03/16 12/03/16 05:02 12:11 18:16 WBC RBC Hgb Hct MCV MCH MCHC RDW Plt Count Lymph % (Auto) [place] % (Auto) Lymph # [place] # Baso # Seg Neutrophils % Seg Neuts % (Manual) Lymphocytes % (Manual) Monocytes % (Manual) Eosinophils % (Manual) Basophils % (Manual) Nucleated RBC % Seg Neutrophils # Seg Neutrophils # Man Lymphocytes # (Manual) Monocytes # (Manual) Eosinophils # (Manual) PT INR Fibrinogen dRVVT Confirm Interp Factor V Activity POC ABG pH POC ABG pCO2 POC ABG pO2 ABG pO2 ABG HCO3 ABG Base Excess ABG Hemoglobin Oxyhemoglobin Sodium Potassium Chloride Carbon Dioxide BUN Creatinine Glucose POC Glucose 146 H 157 H 124 H Lactic Acid Calcium Phosphorus Magnesium Direct Bilirubin AST ALT Alkaline Phosphatase Lactate Dehydrogenase Troponin T C-Reactive Protein Total Protein Albumin Prealbumin Triglycerides Cholesterol LDL Cholesterol Direct HDL Cholesterol Urine pH Urine WBC (Auto) Urine Creatinine Urine Total Protein Fluid Total Protein Vancomycin Trough Rheumatoid Factor Complement C4 Miscellaneous Test Crossmatch 12/03/16 12/04/16 12/04/16 23:41 04:00 04:45 WBC RBC Hgb Hct MCV MCH MCHC RDW Plt Count Lymph % (Auto) [place] % (Auto) Lymph # [place] # Baso # Seg Neutrophils % Seg Neuts % (Manual) Lymphocytes % (Manual) Monocytes % (Manual) Eosinophils % (Manual) Basophils % (Manual) Nucleated RBC % Seg Neutrophils # Seg Neutrophils # Man Lymphocytes # (Manual) Monocytes # (Manual) Eosinophils # (Manual) PT INR Fibrinogen dRVVT Confirm Interp Factor V Activity POC ABG pH POC ABG pCO2 POC ABG pO2 ABG pO2 ABG HCO3 ABG Base Excess ABG Hemoglobin Oxyhemoglobin Sodium Potassium Chloride Carbon Dioxide BUN 76 H Creatinine 1.6 H Glucose POC Glucose 130 H 136 H Lactic Acid Calcium Phosphorus Magnesium Direct Bilirubin AST ALT Alkaline Phosphatase 155 H Lactate Dehydrogenase Troponin T C-Reactive Protein Total Protein 5.5 L Albumin 1.5 L Prealbumin Triglycerides Cholesterol LDL Cholesterol Direct HDL Cholesterol Urine pH Urine WBC (Auto) Urine Creatinine Urine Total Protein Fluid Total Protein Vancomycin Trough Rheumatoid Factor Complement C4 Miscellaneous Test Crossmatch 12/04/16 12/04/16 12/05/16 12:08 17:23 00:10 WBC RBC Hgb Hct MCV MCH MCHC RDW Plt Count Lymph % (Auto) [place] % (Auto) Lymph # [place] # Baso # Seg Neutrophils % Seg Neuts % (Manual) Lymphocytes % (Manual) Monocytes % (Manual) Eosinophils % (Manual) Basophils % (Manual) Nucleated RBC % Seg Neutrophils # Seg Neutrophils # Man Lymphocytes # (Manual) Monocytes # (Manual) Eosinophils # (Manual) PT INR Fibrinogen dRVVT Confirm Interp Factor V Activity POC ABG pH POC ABG pCO2 POC ABG pO2 ABG pO2 ABG HCO3 ABG Base Excess ABG Hemoglobin Oxyhemoglobin Sodium Potassium Chloride Carbon Dioxide BUN Creatinine Glucose POC Glucose 114 H 129 H 124 H Lactic Acid Calcium Phosphorus Magnesium Direct Bilirubin AST ALT Alkaline Phosphatase Lactate Dehydrogenase Troponin T C-Reactive Protein Total Protein Albumin Prealbumin Triglycerides Cholesterol LDL Cholesterol Direct HDL Cholesterol Urine pH Urine WBC (Auto) Urine Creatinine Urine Total Protein Fluid Total Protein Vancomycin Trough Rheumatoid Factor Complement C4 Miscellaneous Test Crossmatch 12/05/16 12/05/16 12/05/16 05:00 05:00 05:18 WBC RBC Hgb Hct MCV MCH MCHC RDW Plt Count Lymph % (Auto) [place] % (Auto) Lymph # [place] # Baso # Seg Neutrophils % Seg Neuts % (Manual) Lymphocytes % (Manual) Monocytes % (Manual) Eosinophils % (Manual) Basophils % (Manual) Nucleated RBC % Seg Neutrophils # Seg Neutrophils # Man Lymphocytes # (Manual) Monocytes # (Manual) Eosinophils # (Manual) PT INR Fibrinogen dRVVT Confirm Interp Factor V Activity POC ABG pH POC ABG pCO2 POC ABG pO2 ABG pO2 ABG HCO3 ABG Base Excess ABG Hemoglobin Oxyhemoglobin Sodium Potassium Chloride Carbon Dioxide 21 L BUN 85 H Creatinine 1.9 H Glucose 131 H POC Glucose 154 H Lactic Acid Calcium Phosphorus Magnesium Direct Bilirubin AST ALT Alkaline Phosphatase Lactate Dehydrogenase Troponin T C-Reactive Protein 19.30 H Total Protein Albumin Prealbumin Triglycerides Cholesterol LDL Cholesterol Direct HDL Cholesterol Urine pH Urine WBC (Auto) Urine Creatinine Urine Total Protein Fluid Total Protein Vancomycin Trough Rheumatoid Factor Complement C4 Miscellaneous Test Crossmatch 12/05/16 12/05/16 12/05/16 11:43 17:46 23:25 WBC RBC Hgb Hct MCV MCH MCHC RDW Plt Count Lymph % (Auto) [place] % (Auto) Lymph # [place] # Baso # Seg Neutrophils % Seg Neuts % (Manual) Lymphocytes % (Manual) Monocytes % (Manual) Eosinophils % (Manual) Basophils % (Manual) Nucleated RBC % Seg Neutrophils # Seg Neutrophils # Man Lymphocytes # (Manual) Monocytes # (Manual) Eosinophils # (Manual) PT INR Fibrinogen dRVVT Confirm Interp Factor V Activity POC ABG pH POC ABG pCO2 POC ABG pO2 ABG pO2 ABG HCO3 ABG Base Excess ABG Hemoglobin Oxyhemoglobin Sodium Potassium Chloride Carbon Dioxide BUN Creatinine Glucose POC Glucose 117 H 113 H 111 H Lactic Acid Calcium Phosphorus Magnesium Direct Bilirubin AST ALT Alkaline Phosphatase Lactate Dehydrogenase Troponin T C-Reactive Protein Total Protein Albumin Prealbumin Triglycerides Cholesterol LDL Cholesterol Direct HDL Cholesterol Urine pH Urine WBC (Auto) Urine Creatinine Urine Total Protein Fluid Total Protein Vancomycin Trough Rheumatoid Factor Complement C4 Miscellaneous Test Crossmatch 12/05/16 12/06/16 12/06/16 Unknown 04:58 06:00 WBC RBC Hgb Hct MCV MCH MCHC RDW Plt Count Lymph % (Auto) [place] % (Auto) Lymph # [place] # Baso # Seg Neutrophils % Seg Neuts % (Manual) Lymphocytes % (Manual) Monocytes % (Manual) Eosinophils % (Manual) Basophils % (Manual) Nucleated RBC % Seg Neutrophils # Seg Neutrophils # Man Lymphocytes # (Manual) Monocytes # (Manual) Eosinophils # (Manual) PT INR Fibrinogen dRVVT Confirm Interp Factor V Activity POC ABG pH POC ABG pCO2 POC ABG pO2 ABG pO2 75.2 L ABG HCO3 ABG Base Excess -3.4 L ABG Hemoglobin 7.4 L Oxyhemoglobin 94.5 L Sodium Potassium Chloride Carbon Dioxide 20 L BUN 99 H Creatinine 2.1 H Glucose 126 H POC Glucose 145 H Lactic Acid Calcium Phosphorus 4.80 H Magnesium Direct Bilirubin AST ALT Alkaline Phosphatase Lactate Dehydrogenase Troponin T C-Reactive Protein Total Protein Albumin Prealbumin Triglycerides Cholesterol LDL Cholesterol Direct HDL Cholesterol Urine pH Urine WBC (Auto) Urine Creatinine Urine Total Protein Fluid Total Protein Vancomycin Trough Rheumatoid Factor Complement C4 Miscellaneous Test Crossmatch 12/06/16 12/06/16 12/06/16 06:46 11:54 17:55 WBC RBC Hgb 8.3 L Hct 26.4 L MCV MCH MCHC RDW Plt Count Lymph % (Auto) [place] % (Auto) Lymph # [place] # Baso # Seg Neutrophils % Seg Neuts % (Manual) Lymphocytes % (Manual) Monocytes % (Manual) Eosinophils % (Manual) Basophils % (Manual) Nucleated RBC % Seg Neutrophils # Seg Neutrophils # Man Lymphocytes # (Manual) Monocytes # (Manual) Eosinophils # (Manual) PT INR Fibrinogen dRVVT Confirm Interp Factor V Activity POC ABG pH POC ABG pCO2 POC ABG pO2 ABG pO2 ABG HCO3 ABG Base Excess ABG Hemoglobin Oxyhemoglobin Sodium Potassium Chloride Carbon Dioxide BUN Creatinine Glucose POC Glucose 126 H 157 H Lactic Acid Calcium Phosphorus Magnesium Direct Bilirubin AST ALT Alkaline Phosphatase Lactate Dehydrogenase Troponin T C-Reactive Protein Total Protein Albumin Prealbumin Triglycerides Cholesterol LDL Cholesterol Direct HDL Cholesterol Urine pH Urine WBC (Auto) Urine Creatinine Urine Total Protein Fluid Total Protein Vancomycin Trough Rheumatoid Factor Complement C4 Miscellaneous Test Crossmatch 12/06/16 12/07/16 12/07/16 23:59 05:34 06:30 WBC RBC Hgb Hct MCV MCH MCHC RDW Plt Count Lymph % (Auto) [place] % (Auto) Lymph # [place] # Baso # Seg Neutrophils % Seg Neuts % (Manual) Lymphocytes % (Manual) Monocytes % (Manual) Eosinophils % (Manual) Basophils % (Manual) Nucleated RBC % Seg Neutrophils # Seg Neutrophils # Man Lymphocytes # (Manual) Monocytes # (Manual) Eosinophils # (Manual) PT INR Fibrinogen dRVVT Confirm Interp Factor V Activity POC ABG pH POC ABG pCO2 POC ABG pO2 ABG pO2 ABG HCO3 ABG Base Excess ABG Hemoglobin Oxyhemoglobin Sodium Potassium Chloride Carbon Dioxide BUN 67 H Creatinine 1.4 H Glucose 126 H POC Glucose 129 H 129 H Lactic Acid Calcium Phosphorus Magnesium Direct Bilirubin AST ALT Alkaline Phosphatase Lactate Dehydrogenase Troponin T C-Reactive Protein Total Protein Albumin Prealbumin Triglycerides Cholesterol LDL Cholesterol Direct HDL Cholesterol Urine pH Urine WBC (Auto) Urine Creatinine Urine Total Protein Fluid Total Protein Vancomycin Trough Rheumatoid Factor Complement C4 Miscellaneous Test Crossmatch 12/07/16 12/07/16 12/07/16 06:30 08:00 09:45 WBC 18.8 H RBC 2.52 L Hgb 6.9 L 6.8 L Hct 21.2 L 21.1 L MCV MCH 27 L MCHC RDW 18.0 H Plt Count Lymph % (Auto) [place] % (Auto) 9.9 H Lymph # [place] # 1.9 H Baso # Seg Neutrophils % 71.8 H Seg Neuts % (Manual) Lymphocytes % (Manual) Monocytes % (Manual) Eosinophils % (Manual) Basophils % (Manual) Nucleated RBC % Seg Neutrophils # 13.5 H Seg Neutrophils # Man Lymphocytes # (Manual) Monocytes # (Manual) Eosinophils # (Manual) PT INR Fibrinogen dRVVT Confirm Interp Factor V Activity POC ABG pH POC ABG pCO2 POC ABG pO2 ABG pO2 ABG HCO3 ABG Base Excess ABG Hemoglobin Oxyhemoglobin Sodium Potassium Chloride Carbon Dioxide BUN Creatinine Glucose POC Glucose Lactic Acid Calcium Phosphorus Magnesium Direct Bilirubin AST ALT Alkaline Phosphatase Lactate Dehydrogenase Troponin T C-Reactive Protein Total Protein Albumin Prealbumin Triglycerides Cholesterol LDL Cholesterol Direct HDL Cholesterol Urine pH Urine WBC (Auto) Urine Creatinine Urine Total Protein Fluid Total Protein Vancomycin Trough Rheumatoid Factor Complement C4 Miscellaneous Test Crossmatch See Detail 12/07/16 12/07/16 12/07/16 11:44 18:19 23:59 WBC RBC Hgb Hct MCV MCH MCHC RDW Plt Count Lymph % (Auto) [place] % (Auto) Lymph # [place] # Baso # Seg Neutrophils % Seg Neuts % (Manual) Lymphocytes % (Manual) Monocytes % (Manual) Eosinophils % (Manual) Basophils % (Manual) Nucleated RBC % Seg Neutrophils # Seg Neutrophils # Man Lymphocytes # (Manual) Monocytes # (Manual) Eosinophils # (Manual) PT INR Fibrinogen dRVVT Confirm Interp Factor V Activity POC ABG pH POC ABG pCO2 POC ABG pO2 ABG pO2 ABG HCO3 ABG Base Excess ABG Hemoglobin Oxyhemoglobin Sodium Potassium Chloride Carbon Dioxide BUN Creatinine Glucose POC Glucose 137 H 138 H 133 H Lactic Acid Calcium Phosphorus Magnesium Direct Bilirubin AST ALT Alkaline Phosphatase Lactate Dehydrogenase Troponin T C-Reactive Protein Total Protein Albumin Prealbumin Triglycerides Cholesterol LDL Cholesterol Direct HDL Cholesterol Urine pH Urine WBC (Auto) Urine Creatinine Urine Total Protein Fluid Total Protein Vancomycin Trough Rheumatoid Factor Complement C4 Miscellaneous Test Crossmatch 12/08/16 12/08/16 12/08/16 05:25 05:30 05:30 WBC 23.8 H RBC 2.88 L Hgb 8.1 L Hct 24.3 L MCV MCH MCHC RDW 16.7 H Plt Count Lymph % (Auto) [place] % (Auto) Lymph # [place] # Baso # Seg Neutrophils % Seg Neuts % (Manual) 76.0 H Lymphocytes % (Manual) 9.0 L Monocytes % (Manual) 9.0 H Eosinophils % (Manual) Basophils % (Manual) Nucleated RBC % Seg Neutrophils # Seg Neutrophils # Man 18.1 H Lymphocytes # (Manual) Monocytes # (Manual) 2.1 H Eosinophils # (Manual) PT INR Fibrinogen dRVVT Confirm Interp Factor V Activity POC ABG pH POC ABG pCO2 POC ABG pO2 ABG pO2 ABG HCO3 ABG Base Excess ABG Hemoglobin Oxyhemoglobin Sodium Potassium Chloride Carbon Dioxide 21 L BUN 76 H Creatinine 1.6 H Glucose 133 H POC Glucose 177 H Lactic Acid Calcium Phosphorus Magnesium Direct Bilirubin AST ALT Alkaline Phosphatase Lactate Dehydrogenase Troponin T C-Reactive Protein Total Protein Albumin Prealbumin Triglycerides Cholesterol LDL Cholesterol Direct HDL Cholesterol Urine pH Urine WBC (Auto) Urine Creatinine Urine Total Protein Fluid Total Protein Vancomycin Trough Rheumatoid Factor Complement C4 Miscellaneous Test Crossmatch 12/08/16 12/08/16 12/09/16 11:45 18:00 00:00 WBC RBC Hgb Hct MCV MCH MCHC RDW Plt Count Lymph % (Auto) [place] % (Auto) Lymph # [place] # Baso # Seg Neutrophils % Seg Neuts % (Manual) Lymphocytes % (Manual) Monocytes % (Manual) Eosinophils % (Manual) Basophils % (Manual) Nucleated RBC % Seg Neutrophils # Seg Neutrophils # Man Lymphocytes # (Manual) Monocytes # (Manual) Eosinophils # (Manual) PT INR Fibrinogen dRVVT Confirm Interp Factor V Activity POC ABG pH POC ABG pCO2 POC ABG pO2 ABG pO2 ABG HCO3 ABG Base Excess ABG Hemoglobin Oxyhemoglobin Sodium Potassium Chloride Carbon Dioxide BUN Creatinine Glucose POC Glucose 163 H 123 H 137 H Lactic Acid Calcium Phosphorus Magnesium Direct Bilirubin AST ALT Alkaline Phosphatase Lactate Dehydrogenase Troponin T C-Reactive Protein Total Protein Albumin Prealbumin Triglycerides Cholesterol LDL Cholesterol Direct HDL Cholesterol Urine pH Urine WBC (Auto) Urine Creatinine Urine Total Protein Fluid Total Protein Vancomycin Trough Rheumatoid Factor Complement C4 Miscellaneous Test Crossmatch 12/09/16 12/09/16 12/09/16 05:34 06:00 06:00 WBC 15.5 H RBC 2.87 L Hgb 8.0 L Hct 24.2 L MCV MCH MCHC RDW 17.2 H Plt Count Lymph % (Auto) [place] % (Auto) 11.6 H Lymph # [place] # 1.8 H Baso # Seg Neutrophils % 70.8 H Seg Neuts % (Manual) Lymphocytes % (Manual) Monocytes % (Manual) Eosinophils % (Manual) Basophils % (Manual) Nucleated RBC % Seg Neutrophils # 11.0 H Seg Neutrophils # Man Lymphocytes # (Manual) Monocytes # (Manual) Eosinophils # (Manual) PT INR Fibrinogen dRVVT Confirm Interp Factor V Activity POC ABG pH POC ABG pCO2 POC ABG pO2 ABG pO2 ABG HCO3 ABG Base Excess ABG Hemoglobin Oxyhemoglobin Sodium Potassium Chloride Carbon Dioxide BUN 51 H Creatinine Glucose 117 H POC Glucose 136 H Lactic Acid Calcium Phosphorus Magnesium Direct Bilirubin AST ALT Alkaline Phosphatase Lactate Dehydrogenase Troponin T C-Reactive Protein Total Protein Albumin Prealbumin Triglycerides Cholesterol LDL Cholesterol Direct HDL Cholesterol Urine pH Urine WBC (Auto) Urine Creatinine Urine Total Protein Fluid Total Protein Vancomycin Trough Rheumatoid Factor Complement C4 Miscellaneous Test Crossmatch 12/09/16 12/09/16 12/09/16 12:29 17:52 23:10 WBC RBC Hgb Hct MCV MCH MCHC RDW Plt Count Lymph % (Auto) [place] % (Auto) Lymph # [place] # Baso # Seg Neutrophils % Seg Neuts % (Manual) Lymphocytes % (Manual) Monocytes % (Manual) Eosinophils % (Manual) Basophils % (Manual) Nucleated RBC % Seg Neutrophils # Seg Neutrophils # Man Lymphocytes # (Manual) Monocytes # (Manual) Eosinophils # (Manual) PT INR Fibrinogen dRVVT Confirm Interp Factor V Activity POC ABG pH POC ABG pCO2 POC ABG pO2 ABG pO2 ABG HCO3 ABG Base Excess ABG Hemoglobin Oxyhemoglobin Sodium Potassium Chloride Carbon Dioxide BUN Creatinine Glucose POC Glucose 139 H 140 H 129 H Lactic Acid Calcium Phosphorus Magnesium Direct Bilirubin AST ALT Alkaline Phosphatase Lactate Dehydrogenase Troponin T C-Reactive Protein Total Protein Albumin Prealbumin Triglycerides Cholesterol LDL Cholesterol Direct HDL Cholesterol Urine pH Urine WBC (Auto) Urine Creatinine Urine Total Protein Fluid Total Protein Vancomycin Trough Rheumatoid Factor Complement C4 Miscellaneous Test Crossmatch 12/10/16 12/10/16 12/10/16 05:00 05:00 06:54 WBC 15.7 H RBC 2.87 L Hgb 8.2 L Hct 24.4 L MCV MCH MCHC RDW 17.2 H Plt Count Lymph % (Auto) [place] % (Auto) 8.3 H Lymph # [place] # 1.3 H Baso # Seg Neutrophils % 72.8 H Seg Neuts % (Manual) Lymphocytes % (Manual) Monocytes % (Manual) Eosinophils % (Manual) Basophils % (Manual) Nucleated RBC % Seg Neutrophils # 11.4 H Seg Neutrophils # Man Lymphocytes # (Manual) Monocytes # (Manual) Eosinophils # (Manual) PT INR Fibrinogen dRVVT Confirm Interp Factor V Activity POC ABG pH POC ABG pCO2 POC ABG pO2 ABG pO2 ABG HCO3 ABG Base Excess ABG Hemoglobin Oxyhemoglobin Sodium Potassium Chloride Carbon Dioxide BUN 64 H Creatinine 1.4 H Glucose 134 H POC Glucose 154 H Lactic Acid Calcium Phosphorus Magnesium Direct Bilirubin AST ALT Alkaline Phosphatase Lactate Dehydrogenase Troponin T C-Reactive Protein Total Protein Albumin Prealbumin Triglycerides Cholesterol LDL Cholesterol Direct HDL Cholesterol Urine pH Urine WBC (Auto) Urine Creatinine Urine Total Protein Fluid Total Protein Vancomycin Trough Rheumatoid Factor Complement C4 Miscellaneous Test Crossmatch 12/10/16 12/10/16 12/10/16 11:58 17:29 23:52 WBC RBC Hgb Hct MCV MCH MCHC RDW Plt Count Lymph % (Auto) [place] % (Auto) Lymph # [place] # Baso # Seg Neutrophils % Seg Neuts % (Manual) Lymphocytes % (Manual) Monocytes % (Manual) Eosinophils % (Manual) Basophils % (Manual) Nucleated RBC % Seg Neutrophils # Seg Neutrophils # Man Lymphocytes # (Manual) Monocytes # (Manual) Eosinophils # (Manual) PT INR Fibrinogen dRVVT Confirm Interp Factor V Activity POC ABG pH POC ABG pCO2 POC ABG pO2 ABG pO2 ABG HCO3 ABG Base Excess ABG Hemoglobin Oxyhemoglobin Sodium Potassium Chloride Carbon Dioxide BUN Creatinine Glucose POC Glucose 144 H 163 H 125 H Lactic Acid Calcium Phosphorus Magnesium Direct Bilirubin AST ALT Alkaline Phosphatase Lactate Dehydrogenase Troponin T C-Reactive Protein Total Protein Albumin Prealbumin Triglycerides Cholesterol LDL Cholesterol Direct HDL Cholesterol Urine pH Urine WBC (Auto) Urine Creatinine Urine Total Protein Fluid Total Protein Vancomycin Trough Rheumatoid Factor Complement C4 Miscellaneous Test Crossmatch 12/11/16 12/11/16 12/11/16 05:38 06:30 06:30 WBC 14.4 H RBC 2.76 L Hgb 7.7 L Hct 23.4 L MCV MCH MCHC RDW 17.2 H Plt Count Lymph % (Auto) [place] % (Auto) 8.8 H Lymph # [place] # 1.3 H Baso # Seg Neutrophils % 72.5 H Seg Neuts % (Manual) Lymphocytes % (Manual) Monocytes % (Manual) Eosinophils % (Manual) Basophils % (Manual) Nucleated RBC % Seg Neutrophils # 10.5 H Seg Neutrophils # Man Lymphocytes # (Manual) Monocytes # (Manual) Eosinophils # (Manual) PT INR Fibrinogen dRVVT Confirm Interp Factor V Activity POC ABG pH POC ABG pCO2 POC ABG pO2 ABG pO2 ABG HCO3 ABG Base Excess ABG Hemoglobin Oxyhemoglobin Sodium Potassium Chloride Carbon Dioxide BUN 43 H Creatinine Glucose 124 H POC Glucose 141 H Lactic Acid Calcium 8.3 L Phosphorus Magnesium 1.60 L Direct Bilirubin AST ALT Alkaline Phosphatase Lactate Dehydrogenase Troponin T C-Reactive Protein Total Protein Albumin Prealbumin Triglycerides Cholesterol LDL Cholesterol Direct HDL Cholesterol Urine pH Urine WBC (Auto) Urine Creatinine Urine Total Protein Fluid Total Protein Vancomycin Trough Rheumatoid Factor Complement C4 Miscellaneous Test Crossmatch 12/11/16 12/11/16 12/11/16 11:15 17:59 23:48 WBC RBC Hgb Hct MCV MCH MCHC RDW Plt Count Lymph % (Auto) [place] % (Auto) Lymph # [place] # Baso # Seg Neutrophils % Seg Neuts % (Manual) Lymphocytes % (Manual) Monocytes % (Manual) Eosinophils % (Manual) Basophils % (Manual) Nucleated RBC % Seg Neutrophils # Seg Neutrophils # Man Lymphocytes # (Manual) Monocytes # (Manual) Eosinophils # (Manual) PT INR Fibrinogen dRVVT Confirm Interp Factor V Activity POC ABG pH POC ABG pCO2 POC ABG pO2 ABG pO2 ABG HCO3 ABG Base Excess ABG Hemoglobin Oxyhemoglobin Sodium Potassium Chloride Carbon Dioxide BUN Creatinine Glucose POC Glucose 188 H 106 H 119 H Lactic Acid Calcium Phosphorus Magnesium Direct Bilirubin AST ALT Alkaline Phosphatase Lactate Dehydrogenase Troponin T C-Reactive Protein Total Protein Albumin Prealbumin Triglycerides Cholesterol LDL Cholesterol Direct HDL Cholesterol Urine pH Urine WBC (Auto) Urine Creatinine Urine Total Protein Fluid Total Protein Vancomycin Trough Rheumatoid Factor Complement C4 Miscellaneous Test Crossmatch 12/12/16 12/12/16 12/12/16 05:00 06:01 12:20 WBC 16.7 H RBC 2.87 L Hgb 8.0 L Hct 24.2 L MCV MCH MCHC RDW 17.6 H Plt Count Lymph % (Auto) [place] % (Auto) Lymph # [place] # 1.2 H Baso # Seg Neutrophils % 75.3 H Seg Neuts % (Manual) Lymphocytes % (Manual) Monocytes % (Manual) Eosinophils % (Manual) Basophils % (Manual) Nucleated RBC % Seg Neutrophils # 12.6 H Seg Neutrophils # Man Lymphocytes # (Manual) Monocytes # (Manual) Eosinophils # (Manual) PT INR Fibrinogen dRVVT Confirm Interp Factor V Activity POC ABG pH POC ABG pCO2 POC ABG pO2 ABG pO2 ABG HCO3 ABG Base Excess ABG Hemoglobin Oxyhemoglobin Sodium Potassium Chloride Carbon Dioxide BUN Creatinine Glucose POC Glucose 134 H 149 H Lactic Acid Calcium Phosphorus Magnesium Direct Bilirubin AST ALT Alkaline Phosphatase Lactate Dehydrogenase Troponin T C-Reactive Protein Total Protein Albumin Prealbumin Triglycerides Cholesterol LDL Cholesterol Direct HDL Cholesterol Urine pH Urine WBC (Auto) Urine Creatinine Urine Total Protein Fluid Total Protein Vancomycin Trough Rheumatoid Factor Complement C4 Miscellaneous Test Crossmatch 12/12/16 12/12/16 12/12/16 17:38 23:01 Unknown WBC RBC Hgb Hct MCV MCH MCHC RDW Plt Count Lymph % (Auto) [place] % (Auto) Lymph # [place] # Baso # Seg Neutrophils % Seg Neuts % (Manual) Lymphocytes % (Manual) Monocytes % (Manual) Eosinophils % (Manual) Basophils % (Manual) Nucleated RBC % Seg Neutrophils # Seg Neutrophils # Man Lymphocytes # (Manual) Monocytes # (Manual) Eosinophils # (Manual) PT INR Fibrinogen dRVVT Confirm Interp Factor V Activity POC ABG pH POC ABG pCO2 POC ABG pO2 ABG pO2 ABG HCO3 ABG Base Excess ABG Hemoglobin Oxyhemoglobin Sodium Potassium Chloride Carbon Dioxide BUN 60 H Creatinine 1.3 H Glucose 126 H POC Glucose 127 H 144 H Lactic Acid Calcium Phosphorus Magnesium Direct Bilirubin AST ALT Alkaline Phosphatase Lactate Dehydrogenase Troponin T C-Reactive Protein Total Protein Albumin Prealbumin Triglycerides Cholesterol LDL Cholesterol Direct HDL Cholesterol Urine pH Urine WBC (Auto) Urine Creatinine Urine Total Protein Fluid Total Protein Vancomycin Trough Rheumatoid Factor Complement C4 Miscellaneous Test Crossmatch 12/13/16 12/13/16 12/13/16 04:00 04:00 05:19 WBC 18.7 H RBC 2.89 L Hgb 8.3 L Hct 24.6 L MCV MCH MCHC RDW 17.5 H Plt Count Lymph % (Auto) [place] % (Auto) Lymph # [place] # 1.3 H Baso # Seg Neutrophils % 71.5 H Seg Neuts % (Manual) Lymphocytes % (Manual) Monocytes % (Manual) Eosinophils % (Manual) Basophils % (Manual) Nucleated RBC % Seg Neutrophils # 13.4 H Seg Neutrophils # Man Lymphocytes # (Manual) Monocytes # (Manual) Eosinophils # (Manual) PT INR Fibrinogen dRVVT Confirm Interp Factor V Activity POC ABG pH POC ABG pCO2 POC ABG pO2 ABG pO2 ABG HCO3 ABG Base Excess ABG Hemoglobin Oxyhemoglobin Sodium Potassium Chloride Carbon Dioxide BUN 73 H Creatinine 1.5 H Glucose 141 H POC Glucose 171 H Lactic Acid Calcium Phosphorus Magnesium Direct Bilirubin AST ALT Alkaline Phosphatase Lactate Dehydrogenase Troponin T C-Reactive Protein Total Protein Albumin Prealbumin Triglycerides Cholesterol LDL Cholesterol Direct HDL Cholesterol Urine pH Urine WBC (Auto) Urine Creatinine Urine Total Protein Fluid Total Protein Vancomycin Trough Rheumatoid Factor Complement C4 Miscellaneous Test Crossmatch Allied health notes reviewed: RT
--- NOTE | 2016-12-13 10:46 | Progress Note ---
Assessment and Plan Assessment and plan: Patient is 46-year-old woman with a history of hypertension, diabetes, asthma, hyperlipidemia, chronic kidney disease and anxiety , who was brought in by family because, she couldn't get her words out, her face was also twisted, she was admitted for acute CVA and accelerated hypertension, she had a hx of poor adherence with her medications, and uncontrolled htn. Patient's SBP on admission was noted be greater than 260. TPA was started but this was discontinued after 5 minutes because her blood pressure became uncontrolled. The TPA was not initiated again because the patient was outside the TPA window. Patient has had a prolonged hospital stay complicated with recurrent severe sepsis. Patient with most recent event also status post cardiac arrest on and received CPR. --Severe Sepsis with septic shock, recurrent. Patient with multiple episodes of sepsis. Initial episode due to presumed aspiration pneumonia and septic episode on 09/23 from candidemia then a third episode from peritonitis from gastric perforation from dislodged PEG +/-UTI. Patient was also noted to have had Candidemia with Blood cultures positive for Silvia albicans 09/23, 09/25 but negative on 09/30. Antibiotic discontinued on 12/05 per ID. patient is s/p R thoracentesis on 11/14, 240cc of serous fluid removed, cx of fluid was negative. Also, Stool negative for C. difficile --Surgical wound infection/gram-negative sepsis/candidemia/peritonitis. Continue wound care to ostomy sites --Acute hypoxic respiratory failure, status post tracheostomy Patient placed back on ventilation. Patient currently with CPAP mode. Patient failed T-piece trials. Tracheostomy tube leak. Pulmonary following --Acute massive CVA with mass effect; continue antiplatelets and statins CT showed continued evolution of left MCA infarct with slight mass effect and edema, and there is no hemorrhage -PRINCE showed hyperdynamic ventricle with ef of 75%, neither clot nor septal defect seen -MRA Brain shows near complete occlusion of M2 and M3 of the left MCA carotid doppler negative -Echo shows preserved systolic function but does show some left ventricular diastolic dysfunction -continue asa and statin --Oliguric acute kidney injury. Etiology secondary to ATN on CKD. Baseline creatinine is approximately 1.7. --Paroxysmal atrial fibrillation with rapid ventricular rate, failed cardioversion Continue current medications, Not a candidate for anticoagulation secondary to anemia, thrombocytopenia and massive CVA --Anemia; probably secondary to GI bleeding Patient received multiple units of PRBC in the past, hemoglobin currently stable re-consult GI if needed Recheck Hemoccult stool -Toxic metabolic encephalopathy; supportive care --Diabetes mellitus type 2, Insulin/SSI --Severe protein caloric malnutrition, cont TPN --s/p Thrombocytopenia. Now resolved --DVT prophylaxis, SCDs, no pharmacological agent given anemia , thrombocytopenia, massive stroke --Full code status, very poor prognosis Dispo. Very poor prognosis has been explained by the hospitalist group and the b2b sales executive but the family currently refusing hospice evaluation. The family would like to continue aggressive care. The high probability of a clinically significant, sudden or life threatening deterioration of the [respiratory, GI, immunological and cardiovascular] system( s) required my full and direct attention, intervention and personal management. The aggregate critical care time was [31] minutes. This time is in addition to time spent performing reported procedures but includes the following: [x] Data Review and interpretation [x] Patient assessment and monitoring of vital signs [x] Documentation [x] Medication orders and management History Interval history: No new issues overnight. Hospitalist Physical - Constitutional Vitals: Temp Pulse Resp BP Pulse Ox 98.2 F 94 H 30 H 111/73 98 12/13/16 08:00 12/13/16 10:00 12/13/16 10:00 12/13/16 10:00 12/13/16 10:00 General appearance: Present: no acute distress - EENT Eyes: Present: PERRL, EOM intact ENT: hearing intact, clear oral mucosa, dentition normal - Neck Neck: Present: supple, normal ROM - Respiratory Respiratory effort: normal Respiratory: bilateral: CTA - Cardiovascular Rhythm: regular Heart Sounds: Present: S1 & S2. Absent: gallop, rub - Extremities Extremities: no ischemia, No edema, Full ROM - Abdominal General gastrointestinal: soft, non-tender, non-distended, normal bowel sounds - Integumentary Integumentary: Present: clear, warm, dry - Neurologic Neurologic: CNII-XII intact, moves all extremities Results - Labs CBC & Chem 7: 12/13/16 04:00 12/13/16 04:00 Labs: Laboratory Last Values WBC 18.7 K/mm3 (4.5-11.0) H 12/13/16 04:00 RBC 2.89 M/mm3 (3.65-5.03) L 12/13/16 04:00 Hgb 8.3 gm/dl (10.1-14.3) L 12/13/16 04:00 Hct 24.6 % (30.3-42.9) L 12/13/16 04:00 MCV 85 fl (79-97) 12/13/16 04:00 MCH 29 pg (28-32) 12/13/16 04:00 MCHC 34 % (30-34) 12/13/16 04:00 RDW 17.5 % (13.2-15.2) H 12/13/16 04:00 Plt Count 359 K/mm3 (140-440) 12/13/16 04:00 Lymph % (Auto) 20.2 % (13.4-35.0) 12/13/16 04:00 [place] % (Auto) 7.2 % (0.0-7.3) 12/13/16 04:00 Eos % (Auto) 0.6 % (0.0-4.3) 12/13/16 04:00 Baso % (Auto) 0.5 % (0.0-1.8) 12/13/16 04:00 Lymph # 3.8 K/mm3 (1.2-5.4) 12/13/16 04:00 [place] # 1.3 K/mm3 (0.0-0.8) H 12/13/16 04:00 Eos # 0.1 K/mm3 (0.0-0.4) 12/13/16 04:00 Baso # 0.1 K/mm3 (0.0-0.1) 12/13/16 04:00 Add Manual Diff Complete 12/08/16 05:30 Total Counted 100 12/08/16 05:30 Seg Neutrophils % 71.5 % (40.0-70.0) H 12/13/16 04:00 Seg Neuts % (Manual) 76.0 % (40.0-70.0) H 12/08/16 05:30 Band Neutrophils % 6.0 % 12/08/16 05:30 Lymphocytes % (Manual) 9.0 % (13.4-35.0) L 12/08/16 05:30 Reactive Lymphs % (Man) 0 % 12/08/16 05:30 Monocytes % (Manual) 9.0 % (0.0-7.3) H 12/08/16 05:30 Eosinophils % (Manual) 0 % (0.0-4.3) 12/08/16 05:30 Basophils % (Manual) 0 % (0.0-1.8) 12/08/16 05:30 Metamyelocytes % 0 % 12/08/16 05:30 Myelocytes % 0 % 12/08/16 05:30 Promyelocytes % 0 % 12/08/16 05:30 Blast Cells % 0 % 12/08/16 05:30 Nucleated RBC % Not Reportable 12/08/16 05:30 Seg Neutrophils # 13.4 K/mm3 (1.8-7.7) H 12/13/16 04:00 Seg Neutrophils # Man 18.1 K/mm3 (1.8-7.7) H 12/08/16 05:30 Band Neutrophils # 1.4 K/mm3 12/08/16 05:30 Lymphocytes # (Manual) 2.1 K/mm3 (1.2-5.4) 12/08/16 05:30 Abs React Lymphs (Man) 0.0 K/mm3 12/08/16 05:30 Monocytes # (Manual) 2.1 K/mm3 (0.0-0.8) H 12/08/16 05:30 Eosinophils # (Manual) 0.0 K/mm3 (0.0-0.4) 12/08/16 05:30 Basophils # (Manual) 0.0 K/mm3 (0.0-0.1) 12/08/16 05:30 Metamyelocytes # 0.0 K/mm3 12/08/16 05:30 Myelocytes # 0.0 K/mm3 12/08/16 05:30 Promyelocytes # 0.0 K/mm3 12/08/16 05:30 Blast Cells # 0.0 K/mm3 12/08/16 05:30 Pathologist Review 09/13/16 04:00 WBC Morphology Not Reportable 12/08/16 05:30 Hypersegmented Neuts Not Reportable 12/08/16 05:30 Hyposegmented Neuts Not Reportable 12/08/16 05:30 Hypogranular Neuts Not Reportable 12/08/16 05:30 Smudge Cells Not Reportable 12/08/16 05:30 Toxic Granulation Not Reportable 12/08/16 05:30 Toxic Vacuolation Not Reportable 12/08/16 05:30 Dohle Bodies Not Reportable 12/08/16 05:30 Pelger-Huet Anomaly Not Reportable 12/08/16 05:30 Jasmina Rods Not Reportable 12/08/16 05:30 Platelet Estimate Appears normal 12/08/16 05:30 Clumped Platelets Not Reportable 12/08/16 05:30 Plt Clumps, EDTA Not Reportable 12/08/16 05:30 Large Platelets Not Reportable 12/08/16 05:30 Giant Platelets Not Reportable 12/08/16 05:30 Platelet Satelliting Not Reportable 12/08/16 05:30 Plt Morphology Comment Not Reportable 12/08/16 05:30 RBC Morphology Not Reportable 12/08/16 05:30 Dimorphic RBCs Not Reportable 12/08/16 05:30 Polychromasia Not Reportable 12/08/16 05:30 Hypochromasia Few 12/08/16 05:30 Poikilocytosis Not Reportable 12/08/16 05:30 Anisocytosis 1+ 12/08/16 05:30 Microcytosis Few 12/08/16 05:30 Macrocytosis Not Reportable 12/08/16 05:30 Spherocytes Not Reportable 12/08/16 05:30 Pappenheimer Bodies Not Reportable 12/08/16 05:30 Sickle Cells Not Reportable 12/08/16 05:30 Target Cells Not Reportable 12/08/16 05:30 Tear Drop Cells Not Reportable 12/08/16 05:30 Ovalocytes 1+ 12/08/16 05:30 Stomatocytes Rare 12/03/16 04:00 Helmet Cells Not Reportable 12/08/16 05:30 Monet-Friendly Bodies Not Reportable 12/08/16 05:30 [place] Rings Not Reportable 12/08/16 05:30 Chuck Cells Rare 12/08/16 05:30 Bite Cells Not Reportable 12/08/16 05:30 Crenated Cell Not Reportable 12/08/16 05:30 Elliptocytes Not Reportable 12/08/16 05:30 Acanthocytes (Spur) Not Reportable 12/08/16 05:30 Rouleaux Not Reportable 12/08/16 05:30 Hemoglobin C Crystals Not Reportable 12/08/16 05:30 Schistocytes Not Reportable 12/08/16 05:30 Malaria parasites Not Reportable 12/08/16 05:30 ESR > 140.0 mm/Hr (0-20) 09/08/16 11:48 Jun Bodies Not Reportable 12/08/16 05:30 Hem Pathologist Commnt No 12/08/16 05:30 PT 16.8 Sec. (12.2-14.9) H 11/17/16 03:20 INR 1.37 (0.87-1.13) H 11/17/16 03:20 APTT 33.0 Sec. (24.2-36.6) 10/09/16 03:45 Thrombin Time 16.8 Sec. (15.1-19.6) 09/03/16 00:10 Fibrinogen 750 mg/dl (211-480) H 09/08/16 11:48 Lupus Anticoagulant see below 09/12/16 09:59 LA PTT Baseline See scanned report 09/12/16 09:59 dRVVT Confirm Interp Positive (Negative) H 09/12/16 09:59 dRVVT Screen 50:50 See scanned report 09/12/16 09:59 dRVVT Mix Interpret See scanned report 09/12/16 09:59 Protein C Antigen 122 % (70-140) 09/08/16 15:35 Free Protein S 97 % normal (50-147) 09/08/16 15:35 Total Protein S 109 % (70-140) 09/08/16 15:35 Antithrombin III Ag 100 % (80-120) 09/08/16 15:35 Heparin Anti-Xa, Unfract Negative (Negative) 09/29/16 13:35 Factor V Activity 182 % (65-150) H 09/08/16 15:35 POC ABG pH 7.487 (7.35-7.45) H 11/25/16 14:12 ABG pH 7.450 pH Units (7.350-7.450) 12/05/16 Unknown POC ABG pCO2 39.0 (35-45) 11/25/16 14:12 ABG pCO2 29.6 mm Hg 12/05/16 Unknown POC ABG pO2 153 (80-105) H 11/25/16 14:12 ABG pO2 75.2 mm Hg (80.0-90.0) L 12/05/16 Unknown POC ABG HCO3 29.5 11/25/16 14:12 ABG HCO3 20.1 mmol/L (20.0-26.0) 12/05/16 Unknown POC ABG Total CO2 31 11/25/16 14:12 POC ABG O2 Sat 99 11/25/16 14:12 ABG O2 Saturation 96.8 % (95.0-99.0) 12/05/16 Unknown ABG O2 Content 9.9 (0.0-44) 12/05/16 Unknown POC ABG Base Excess 6 11/25/16 14:12 ABG Base Excess -3.4 mmol/L (-2.0-3.0) L 12/05/16 Unknown ABG Hemoglobin 7.4 gm/dl (12.0-16.0) L 12/05/16 Unknown ABG Carboxyhemoglobin 1.8 % (0.0-5.0) 12/05/16 Unknown ABG Methemoglobin 0.6 % (0.0-1.5) 12/05/16 Unknown Oxyhemoglobin 94.5 % (95.0-99.0) L 12/05/16 Unknown FiO2 30 % 12/05/16 Unknown Sodium 142 mmol/L (137-145) 12/13/16 04:00 Potassium 4.2 mmol/L (3.6-5.0) 12/13/16 04:00 Chloride 100.0 mmol/L (98-107) 12/13/16 04:00 Carbon Dioxide 22 mmol/L (22-30) 12/13/16 04:00 Anion Gap 24 mmol/L 12/13/16 04:00 BUN 73 mg/dL (7-17) H 12/13/16 04:00 Creatinine 1.5 mg/dL (0.7-1.2) H 12/13/16 04:00 Estimated GFR 45 ml/min 12/13/16 04:00 BUN/Creatinine Ratio 49 % 12/13/16 04:00 Glucose 141 mg/dL (65-100) H 12/13/16 04:00 POC Glucose 171 (70-105) H 12/13/16 05:19 Osmolality 351 Mosm/kg 09/16/16 11:47 Lactic Acid 4.50 mmol/L (0.7-2.0) H* 09/28/16 07:25 Calcium 9.3 mg/dL (8.4-10.2) 12/13/16 04:00 Phosphorus 3.60 mg/dL (2.5-4.5) D 12/12/16 Unknown Magnesium 1.90 mg/dL (1.7-2.3) 12/12/16 Unknown Total Bilirubin 0.20 mg/dL (0.1-1.2) 12/04/16 04:00 Direct Bilirubin 0.3 mg/dL (0-0.2) H 10/10/16 05:00 Indirect Bilirubin 0.1 mg/dL 10/10/16 05:00 AST 29 units/L (5-40) 12/04/16 04:00 ALT 43 units/L (7-56) 12/04/16 04:00 Alkaline Phosphatase 155 units/L (35-129) H 12/04/16 04:00 Ammonia 27.0 umol/L (25-60) 09/07/16 08:37 Lactate Dehydrogenase 196 units/L (91-180) H 11/11/16 06:59 Total Creatine Kinase 121 units/L (30-135) 09/29/16 20:12 CK-MB (CK-2) < 1.0 ng/mL (0.0-4.0) 09/29/16 20:12 CK-MB (CK-2) Rel Index 0.8 (0-4) 09/29/16 20:12 Troponin T 0.204 ng/mL (0.00-0.029) H* 09/29/16 20:12 C-Reactive Protein 19.30 mg/dL (0.00-1.30) H 12/05/16 05:00 Total Protein 5.5 g/dL (6.3-8.2) L 12/04/16 04:00 Albumin 1.5 g/dL (3.9-5) L 12/04/16 04:00 Albumin/Globulin Ratio 0.4 % 12/04/16 04:00 Prealbumin 0.180 g/L (0.200-0.400) L 11/06/16 06:25 Triglycerides 137 mg/dL (2-149) 09/29/16 20:12 Cholesterol 31 mg/dL (50-199) L 09/29/16 20:12 LDL Cholesterol Direct 4 mg/dL (50-130) L 09/29/16 20:12 HDL Cholesterol 3 mg/dL (40-59) L 09/29/16 20:12 Cholesterol/HDL Ratio 10.33 % 09/29/16 20:12 Angiotensin Convert Enz See scanned report 09/08/16 11:48 Renin 0.99 ng/mL/h (0.25-5.82) 10/07/16 10:56 Aldosterone <1 ng/dL () 10/07/16 10:56 Aldosterone/Renin Dir see below 10/07/16 10:56 Serotonin Release Assay See scanned report 09/29/16 13:35 TSH 1.010 mlU/mL (0.270-4.200) 09/07/16 08:37 HCG, Qual Negative (Negative) 09/03/16 00:10 Urine Color Yellow (Yellow) 11/05/16 13:09 Urine Turbidity Clear (Clear) 11/05/16 13:09 Urine pH 9.0 (5.0-7.0) H 11/05/16 13:09 Ur Specific [place] 1.011 (1.003-1.030) 11/05/16 13:09 Urine Protein 100 mg/dl mg/dL (Negative) 11/05/16 13:09 Urine Glucose (UA) Neg mg/dL (Negative) 11/05/16 13:09 Urine Ketones Neg mg/dL (Negative) 11/05/16 13:09 Urine Blood Neg (Negative) 11/05/16 13:09 Urine Nitrite Neg (Negative) 11/05/16 13:09 Urine Bilirubin Neg (Negative) 11/05/16 13:09 Urine Urobilinogen < 2.0 mg/dL (<2.0) 11/05/16 13:09 Ur Leukocyte Esterase Neg (Negative) 11/05/16 13:09 Urine WBC (Auto) 4.0 /HPF (0.0-6.0) 11/05/16 13:09 Urine RBC (Auto) 1.0 /HPF (0.0-6.0) 11/05/16 13:09 U Epithel Cells (Auto) 1.0 /HPF (0-13.0) 10/07/16 18:30 Urine Bacteria (Auto) 4+ /HPF (Negative) 11/05/16 13:09 Urine WBC Clumps 2+ /HPF 09/07/16 02:47 Hyaline Casts 4 /LPF 09/07/16 02:47 Urine Mucus Few /HPF 10/07/16 18:30 Urine Yeast (Budding) 3+ /HPF 10/07/16 18:30 Urine Eosinophils None seen (None Seen) 09/07/16 16:00 Urine Total Volume 950 11/12/16 10:18 Urine Creatinine 19.7 mg/dL (0.1-20.0) 11/12/16 10:18 Height (in) 65.0 inches 11/12/16 10:18 Weight (lb) 181.0 lbs 11/12/16 10:18 Creatinine Clearance 5 11/12/16 10:18 Urine Sodium 36 mEq/L 09/16/16 19:19 Urine Total Protein 16 mg/dL (5-11.8) H 09/16/16 19:19 Fluid Total Protein < 3.0 (15.0-45.0) L 11/10/16 14:20 Fluid LDH 123 11/10/16 14:20 Vancomycin Trough 2.3 ug/mL (5.0-20.0) L 09/21/16 13:00 Random Vancomycin 16.5 ug/mL (0-40.0) 11/28/16 09:45 Urine Opiates Screen Presumptive negative 09/03/16 15:11 Urine Methadone Screen Presumptive positive 09/03/16 15:11 Ur Barbiturates Screen Presumptive positive 09/03/16 15:11 Ur Phencyclidine Scrn Presumptive negative 09/03/16 15:11 Ur Amphetamines Screen Presumptive negative 09/03/16 15:11 U Benzodiazepines Scrn Presumptive negative 09/03/16 15:11 Urine Cocaine Screen Presumptive negative 09/03/16 15:11 U Marijuana (THC) Screen Presumptive positive 09/03/16 15:11 Drugs of Abuse Note Disclamer 09/03/16 15:11 Rheumatoid Factor 24 IU/ml (0-13) H 09/08/16 11:48 SAHIL Screen Negative (Negative) 09/07/16 09:20 Proteinase 3 (PR3) Ab <1.0 AI (<1.0) 09/07/16 09:20 Myeloperoxidase Ab <1.0 AI (<1.0) 09/07/16 09:20 Sjogren's Antibody <1.0 AI (<1.0) 09/08/16 15:35 Scl-70 Scleroderma Ab <1.0 AI (<1.0) 09/08/16 15:35 Centromere B Antibody <1.0 AI (<1.0) 09/08/16 12:02 Heparin-induced Plt Ab Negative (Negative) 09/29/16 13:35 UF Heparin High Dose 11 % Release 09/29/16 13:35 SUDHIR UFH Low Dose 0.1 6 % Release 09/29/16 13:35 SUDHIR UFH Low Dose 0.5 8 % Release 09/29/16 13:35 Cardiolipid IgG Ab <14 GPL (<=14) 09/12/16 09:59 Cardiolipid IgA Ab <11 APL (<=11) 09/12/16 09:59 Cardiolipid IgM Ab <12 MPL (<=12) 09/12/16 09:59 Complement C3 148 mg/dL (90-180) 09/07/16 09:20 Complement C4 58 mg/dL (16-47) H 09/07/16 09:20 RPR Nonreactive (Nonreactive) 09/08/16 11:48 Hepatitis A IgM Ab Non-reactive (NonReactive) 09/24/16 14:40 Hep Bs Antigen Non-reactive (Negative) 09/24/16 14:40 Hep B Core IgM Ab Non-reactive (NonReactive) 09/24/16 14:40 Hepatitis C Antibody Non-reactive (NonReactive) 09/24/16 14:40 HIV 1&2 Antibody Rapid Non react (Non React) 09/08/16 11:48 HIV P24 Antigen Non react (Non React) 09/08/16 11:48 Miscellaneous Test Flexitest 1 H 11/05/16 13:25 Blood Type A POSITIVE 12/07/16 09:45 Antibody Screen Negative 12/07/16 09:45 DELORIS Antibody Screen Negative 11/24/16 11:20 Crossmatch See Detail 12/07/16 09:45
[2016-12-13] MEDS: HEPARIN IV PRN (14:48)
[2016-12-13] MEDS: DURAGESIC TD SCH (15:05)
[2016-12-13] MEDS ORDERED: TPN ADULT IV SCH (20:00)
[2016-12-14] MEDS: LOPRESSOR PO SCH ×5 (00:28→23:04)
[2016-12-14] MEDS: HumuLIN R SUB-Q SCH ×5 (00:28→23:55)
[2016-12-14] MEDS: DUONEB *Not for PRN Use IH SCH ×4 (02:44→19:33)
[2016-12-14] MEDS: APRESOLINE PO SCH ×3 (06:13→22:55)
[2016-12-14] MEDS: REGLAN IV SCH (06:14)
[2016-12-14 07:07] LABS: Calcium 8.5 mg/dL (8.4-10.2)
[2016-12-14] MEDS: PROTONIX FEEDTUBE SCH (09:18)
[2016-12-14] MEDS: NORVASC PO SCH (09:18)
[2016-12-14] MEDS: ROBINUL PO SCH ×2 (09:19→22:55)
[2016-12-14] MEDS: HEPARIN SUB-Q SCH ×2 (09:19→22:55)
[2016-12-14] MEDS: TRANSDERM-SCOP TD SCH (14:44)
--- NOTE | 2016-12-14 18:28 | Progress Note ---
Assessment and Plan Assessment and plan: Patient is 46-year-old woman with a history of hypertension, diabetes, asthma, hyperlipidemia, chronic kidney disease and anxiety , who was brought in by family because, she couldn't get her words out, her face was also twisted, she was admitted for acute CVA and accelerated hypertension, she had a hx of poor adherence with her medications, and uncontrolled htn. Patient's SBP on admission was noted be greater than 260. TPA was started but this was discontinued after 5 minutes because her blood pressure became uncontrolled. The TPA was not initiated again because the patient was outside the TPA window. Patient has had a prolonged hospital stay complicated with recurrent severe sepsis. Patient with most recent event also status post cardiac arrest on and received CPR. --Severe Sepsis with septic shock, recurrent. Patient with multiple episodes of sepsis. Initial episode due to presumed aspiration pneumonia and septic episode on 09/23 from candidemia then a third episode from peritonitis from gastric perforation from dislodged PEG +/-UTI. Patient was also noted to have had Candidemia with Blood cultures positive for Silvia albicans 09/23, 09/25 but negative on 09/30. Antibiotic discontinued on 12/05 per ID. patient is s/p R thoracentesis on 11/14, 240cc of serous fluid removed, cx of fluid was negative. Also, Stool negative for C. difficile --Surgical wound infection/gram-negative sepsis/candidemia/peritonitis. Continue wound care to ostomy sites --Acute hypoxic respiratory failure, status post tracheostomy Patient placed back on ventilation. Patient currently with CPAP mode. Patient failed T-piece trials. Tracheostomy tube leak. Pulmonary following --Acute massive CVA with mass effect; continue antiplatelets and statins CT showed continued evolution of left MCA infarct with slight mass effect and edema, and there is no hemorrhage -PRINCE showed hyperdynamic ventricle with ef of 75%, neither clot nor septal defect seen -MRA Brain shows near complete occlusion of M2 and M3 of the left MCA carotid doppler negative -Echo shows preserved systolic function but does show some left ventricular diastolic dysfunction -continue asa and statin --Oliguric acute kidney injury. Etiology secondary to ATN on CKD. Baseline creatinine is approximately 1.7. --Paroxysmal atrial fibrillation with rapid ventricular rate, failed cardioversion Continue current medications, Not a candidate for anticoagulation secondary to anemia, thrombocytopenia and massive CVA --Anemia; probably secondary to GI bleeding Patient received multiple units of PRBC in the past, hemoglobin currently stable -Toxic metabolic encephalopathy; supportive care --Diabetes mellitus type 2, Insulin/SSI --Severe protein caloric malnutrition, cont TPN --s/p Thrombocytopenia. Now resolved --DVT prophylaxis, SCDs, no pharmacological agent given anemia , thrombocytopenia, massive stroke --Full code status, very poor prognosis History Interval history: Patient seen and examined. Follow up on current diagnosis/respiratory failure. Still intubated, Imaging, old records, testing, labs, nursing notes reviewed. Hospitalist Physical - Physical exam Narrative exam: GEN: Ill appearing, trach, vegetative state NECK: SUPPLE, trach in place CVS: Tachycardic irregular irregular NORMAL S1S2 LUNGS/CHEST: NORMAL CHEST EXPANSION B, GOOD AIR ENTRY B ABD: SOFT, NTND, 3 ostomy bags in 3 different locations, GBS, NO REBOUND OR GUARDING EXT/SKIN: NO SIGNIFICANT EDEMA OR RASH MSK: FROM X 4 EXTREMITIES NEURO: CN 2-12 GROSSLY INTACT, on a ventilator PSY: Comatose, - Constitutional Vitals: Temp Pulse Resp BP Pulse Ox 97.6 F 95 H 23 94/58 100 12/14/16 16:00 12/14/16 18:02 12/14/16 18:00 12/14/16 18:02 12/14/16 18:00 General appearance: Present: no acute distress Results - Labs CBC & Chem 7: 12/13/16 04:00 12/14/16 06:10 Labs: Laboratory Last Values WBC 18.7 K/mm3 (4.5-11.0) H 12/13/16 04:00 RBC 2.89 M/mm3 (3.65-5.03) L 12/13/16 04:00 Hgb 8.3 gm/dl (10.1-14.3) L 12/13/16 04:00 Hct 24.6 % (30.3-42.9) L 12/13/16 04:00 MCV 85 fl (79-97) 12/13/16 04:00 MCH 29 pg (28-32) 12/13/16 04:00 MCHC 34 % (30-34) 12/13/16 04:00 RDW 17.5 % (13.2-15.2) H 12/13/16 04:00 Plt Count 359 K/mm3 (140-440) 12/13/16 04:00 Lymph % (Auto) 20.2 % (13.4-35.0) 12/13/16 04:00 [place] % (Auto) 7.2 % (0.0-7.3) 12/13/16 04:00 Eos % (Auto) 0.6 % (0.0-4.3) 12/13/16 04:00 Baso % (Auto) 0.5 % (0.0-1.8) 12/13/16 04:00 Lymph # 3.8 K/mm3 (1.2-5.4) 12/13/16 04:00 [place] # 1.3 K/mm3 (0.0-0.8) H 12/13/16 04:00 Eos # 0.1 K/mm3 (0.0-0.4) 12/13/16 04:00 Baso # 0.1 K/mm3 (0.0-0.1) 12/13/16 04:00 Add Manual Diff Complete 12/08/16 05:30 Total Counted 100 12/08/16 05:30 Seg Neutrophils % 71.5 % (40.0-70.0) H 12/13/16 04:00 Seg Neuts % (Manual) 76.0 % (40.0-70.0) H 12/08/16 05:30 Band Neutrophils % 6.0 % 12/08/16 05:30 Lymphocytes % (Manual) 9.0 % (13.4-35.0) L 12/08/16 05:30 Reactive Lymphs % (Man) 0 % 12/08/16 05:30 Monocytes % (Manual) 9.0 % (0.0-7.3) H 12/08/16 05:30 Eosinophils % (Manual) 0 % (0.0-4.3) 12/08/16 05:30 Basophils % (Manual) 0 % (0.0-1.8) 12/08/16 05:30 Metamyelocytes % 0 % 12/08/16 05:30 Myelocytes % 0 % 12/08/16 05:30 Promyelocytes % 0 % 12/08/16 05:30 Blast Cells % 0 % 12/08/16 05:30 Nucleated RBC % Not Reportable 12/08/16 05:30 Seg Neutrophils # 13.4 K/mm3 (1.8-7.7) H 12/13/16 04:00 Seg Neutrophils # Man 18.1 K/mm3 (1.8-7.7) H 12/08/16 05:30 Band Neutrophils # 1.4 K/mm3 12/08/16 05:30 Lymphocytes # (Manual) 2.1 K/mm3 (1.2-5.4) 12/08/16 05:30 Abs React Lymphs (Man) 0.0 K/mm3 12/08/16 05:30 Monocytes # (Manual) 2.1 K/mm3 (0.0-0.8) H 12/08/16 05:30 Eosinophils # (Manual) 0.0 K/mm3 (0.0-0.4) 12/08/16 05:30 Basophils # (Manual) 0.0 K/mm3 (0.0-0.1) 12/08/16 05:30 Metamyelocytes # 0.0 K/mm3 12/08/16 05:30 Myelocytes # 0.0 K/mm3 12/08/16 05:30 Promyelocytes # 0.0 K/mm3 12/08/16 05:30 Blast Cells # 0.0 K/mm3 12/08/16 05:30 Pathologist Review 09/13/16 04:00 WBC Morphology Not Reportable 12/08/16 05:30 Hypersegmented Neuts Not Reportable 12/08/16 05:30 Hyposegmented Neuts Not Reportable 12/08/16 05:30 Hypogranular Neuts Not Reportable 12/08/16 05:30 Smudge Cells Not Reportable 12/08/16 05:30 Toxic Granulation Not Reportable 12/08/16 05:30 Toxic Vacuolation Not Reportable 12/08/16 05:30 Dohle Bodies Not Reportable 12/08/16 05:30 Pelger-Huet Anomaly Not Reportable 12/08/16 05:30 Jasmina Rods Not Reportable 12/08/16 05:30 Platelet Estimate Appears normal 12/08/16 05:30 Clumped Platelets Not Reportable 12/08/16 05:30 Plt Clumps, EDTA Not Reportable 12/08/16 05:30 Large Platelets Not Reportable 12/08/16 05:30 Giant Platelets Not Reportable 12/08/16 05:30 Platelet Satelliting Not Reportable 12/08/16 05:30 Plt Morphology Comment Not Reportable 12/08/16 05:30 RBC Morphology Not Reportable 12/08/16 05:30 Dimorphic RBCs Not Reportable 12/08/16 05:30 Polychromasia Not Reportable 12/08/16 05:30 Hypochromasia Few 12/08/16 05:30 Poikilocytosis Not Reportable 12/08/16 05:30 Anisocytosis 1+ 12/08/16 05:30 Microcytosis Few 12/08/16 05:30 Macrocytosis Not Reportable 12/08/16 05:30 Spherocytes Not Reportable 12/08/16 05:30 Pappenheimer Bodies Not Reportable 12/08/16 05:30 Sickle Cells Not Reportable 12/08/16 05:30 Target Cells Not Reportable 12/08/16 05:30 Tear Drop Cells Not Reportable 12/08/16 05:30 Ovalocytes 1+ 12/08/16 05:30 Stomatocytes Rare 12/03/16 04:00 Helmet Cells Not Reportable 12/08/16 05:30 [place] Bodies Not Reportable 12/08/16 05:30 [place] Rings Not Reportable 12/08/16 05:30 Chuck Cells Rare 12/08/16 05:30 Bite Cells Not Reportable 12/08/16 05:30 Crenated Cell Not Reportable 12/08/16 05:30 Elliptocytes Not Reportable 12/08/16 05:30 Acanthocytes (Spur) Not Reportable 12/08/16 05:30 Rouleaux Not Reportable 12/08/16 05:30 Hemoglobin C Crystals Not Reportable 12/08/16 05:30 Schistocytes Not Reportable 12/08/16 05:30 Malaria parasites Not Reportable 12/08/16 05:30 ESR > 140.0 mm/Hr (0-20) 09/08/16 11:48 Jun Bodies Not Reportable 12/08/16 05:30 Hem Pathologist Commnt No 12/08/16 05:30 PT 16.8 Sec. (12.2-14.9) H 11/17/16 03:20 INR 1.37 (0.87-1.13) H 11/17/16 03:20 APTT 33.0 Sec. (24.2-36.6) 10/09/16 03:45 Thrombin Time 16.8 Sec. (15.1-19.6) 09/03/16 00:10 Fibrinogen 750 mg/dl (211-480) H 09/08/16 11:48 Lupus Anticoagulant see below 09/12/16 09:59 LA PTT Baseline See scanned report 09/12/16 09:59 dRVVT Confirm Interp Positive (Negative) H 09/12/16 09:59 dRVVT Screen 50:50 See scanned report 09/12/16 09:59 dRVVT Mix Interpret See scanned report 09/12/16 09:59 Protein C Antigen 122 % (70-140) 09/08/16 15:35 Free Protein S 97 % normal (50-147) 09/08/16 15:35 Total Protein S 109 % (70-140) 09/08/16 15:35 Antithrombin III Ag 100 % (80-120) 09/08/16 15:35 Heparin Anti-Xa, Unfract Negative (Negative) 09/29/16 13:35 Factor V Activity 182 % (65-150) H 09/08/16 15:35 POC ABG pH 7.487 (7.35-7.45) H 11/25/16 14:12 ABG pH 7.450 pH Units (7.350-7.450) 12/05/16 Unknown POC ABG pCO2 39.0 (35-45) 11/25/16 14:12 ABG pCO2 29.6 mm Hg 12/05/16 Unknown POC ABG pO2 153 (80-105) H 11/25/16 14:12 ABG pO2 75.2 mm Hg (80.0-90.0) L 12/05/16 Unknown POC ABG HCO3 29.5 11/25/16 14:12 ABG HCO3 20.1 mmol/L (20.0-26.0) 12/05/16 Unknown POC ABG Total CO2 31 11/25/16 14:12 POC ABG O2 Sat 99 11/25/16 14:12 ABG O2 Saturation 96.8 % (95.0-99.0) 12/05/16 Unknown ABG O2 Content 9.9 (0.0-44) 12/05/16 Unknown POC ABG Base Excess 6 11/25/16 14:12 ABG Base Excess -3.4 mmol/L (-2.0-3.0) L 12/05/16 Unknown ABG Hemoglobin 7.4 gm/dl (12.0-16.0) L 12/05/16 Unknown ABG Carboxyhemoglobin 1.8 % (0.0-5.0) 12/05/16 Unknown ABG Methemoglobin 0.6 % (0.0-1.5) 12/05/16 Unknown Oxyhemoglobin 94.5 % (95.0-99.0) L 12/05/16 Unknown FiO2 30 % 12/05/16 Unknown Sodium 138 mmol/L (137-145) 12/14/16 06:10 Potassium 4.5 mmol/L (3.6-5.0) 12/14/16 06:10 Chloride 98.2 mmol/L (98-107) 12/14/16 06:10 Carbon Dioxide 24 mmol/L (22-30) 12/14/16 06:10 Anion Gap 20 mmol/L 12/14/16 06:10 BUN 57 mg/dL (7-17) H 12/14/16 06:10 Creatinine 1.4 mg/dL (0.7-1.2) H 12/14/16 06:10 Estimated GFR 49 ml/min 12/14/16 06:10 BUN/Creatinine Ratio 41 % 12/14/16 06:10 Glucose 135 mg/dL (65-100) H 12/14/16 06:10 POC Glucose 149 (70-105) H 12/14/16 17:52 Osmolality 351 Mosm/kg 09/16/16 11:47 Lactic Acid 4.50 mmol/L (0.7-2.0) H* 09/28/16 07:25 Calcium 8.5 mg/dL (8.4-10.2) 12/14/16 06:10 Phosphorus 4.40 mg/dL (2.5-4.5) 12/14/16 06:10 Magnesium 1.90 mg/dL (1.7-2.3) 12/12/16 Unknown Total Bilirubin 0.20 mg/dL (0.1-1.2) 12/04/16 04:00 Direct Bilirubin 0.3 mg/dL (0-0.2) H 10/10/16 05:00 Indirect Bilirubin 0.1 mg/dL 10/10/16 05:00 AST 29 units/L (5-40) 12/04/16 04:00 ALT 43 units/L (7-56) 12/04/16 04:00 Alkaline Phosphatase 155 units/L (35-129) H 12/04/16 04:00 Ammonia 27.0 umol/L (25-60) 09/07/16 08:37 Lactate Dehydrogenase 196 units/L (91-180) H 11/11/16 06:59 Total Creatine Kinase 121 units/L (30-135) 09/29/16 20:12 CK-MB (CK-2) < 1.0 ng/mL (0.0-4.0) 09/29/16 20:12 CK-MB (CK-2) Rel Index 0.8 (0-4) 09/29/16 20:12 Troponin T 0.204 ng/mL (0.00-0.029) H* 09/29/16 20:12 C-Reactive Protein 19.30 mg/dL (0.00-1.30) H 12/05/16 05:00 Total Protein 5.5 g/dL (6.3-8.2) L 12/04/16 04:00 Albumin 1.5 g/dL (3.9-5) L 12/04/16 04:00 Albumin/Globulin Ratio 0.4 % 12/04/16 04:00 Prealbumin 0.180 g/L (0.200-0.400) L 11/06/16 06:25 Triglycerides 137 mg/dL (2-149) 09/29/16 20:12 Cholesterol 31 mg/dL (50-199) L 09/29/16 20:12 LDL Cholesterol Direct 4 mg/dL (50-130) L 09/29/16 20:12 HDL Cholesterol 3 mg/dL (40-59) L 09/29/16 20:12 Cholesterol/HDL Ratio 10.33 % 09/29/16 20:12 Angiotensin Convert Enz See scanned report 09/08/16 11:48 Renin 0.99 ng/mL/h (0.25-5.82) 10/07/16 10:56 Aldosterone <1 ng/dL () 10/07/16 10:56 Aldosterone/Renin Dir see below 10/07/16 10:56 Serotonin Release Assay See scanned report 09/29/16 13:35 TSH 1.010 mlU/mL (0.270-4.200) 09/07/16 08:37 HCG, Qual Negative (Negative) 09/03/16 00:10 Urine Color Yellow (Yellow) 11/05/16 13:09 Urine Turbidity Clear (Clear) 11/05/16 13:09 Urine pH 9.0 (5.0-7.0) H 11/05/16 13:09 Ur Specific [place] 1.011 (1.003-1.030) 11/05/16 13:09 Urine Protein 100 mg/dl mg/dL (Negative) 11/05/16 13:09 Urine Glucose (UA) Neg mg/dL (Negative) 11/05/16 13:09 Urine Ketones Neg mg/dL (Negative) 11/05/16 13:09 Urine Blood Neg (Negative) 11/05/16 13:09 Urine Nitrite Neg (Negative) 11/05/16 13:09 Urine Bilirubin Neg (Negative) 11/05/16 13:09 Urine Urobilinogen < 2.0 mg/dL (<2.0) 11/05/16 13:09 Ur Leukocyte Esterase Neg (Negative) 11/05/16 13:09 Urine WBC (Auto) 4.0 /HPF (0.0-6.0) 11/05/16 13:09 Urine RBC (Auto) 1.0 /HPF (0.0-6.0) 11/05/16 13:09 U Epithel Cells (Auto) 1.0 /HPF (0-13.0) 10/07/16 18:30 Urine Bacteria (Auto) 4+ /HPF (Negative) 11/05/16 13:09 Urine WBC Clumps 2+ /HPF 09/07/16 02:47 Hyaline Casts 4 /LPF 09/07/16 02:47 Urine Mucus Few /HPF 10/07/16 18:30 Urine Yeast (Budding) 3+ /HPF 10/07/16 18:30 Urine Eosinophils None seen (None Seen) 09/07/16 16:00 Urine Total Volume 950 11/12/16 10:18 Urine Creatinine 19.7 mg/dL (0.1-20.0) 11/12/16 10:18 Height (in) 65.0 inches 11/12/16 10:18 Weight (lb) 181.0 lbs 11/12/16 10:18 Creatinine Clearance 5 11/12/16 10:18 Urine Sodium 36 mEq/L 09/16/16 19:19 Urine Total Protein 16 mg/dL (5-11.8) H 09/16/16 19:19 Fluid Total Protein < 3.0 (15.0-45.0) L 11/10/16 14:20 Fluid LDH 123 11/10/16 14:20 Vancomycin Trough 2.3 ug/mL (5.0-20.0) L 09/21/16 13:00 Random Vancomycin 16.5 ug/mL (0-40.0) 11/28/16 09:45 Urine Opiates Screen Presumptive negative 09/03/16 15:11 Urine Methadone Screen Presumptive positive 09/03/16 15:11 Ur Barbiturates Screen Presumptive positive 09/03/16 15:11 Ur Phencyclidine Scrn Presumptive negative 09/03/16 15:11 Ur Amphetamines Screen Presumptive negative 09/03/16 15:11 U Benzodiazepines Scrn Presumptive negative 09/03/16 15:11 Urine Cocaine Screen Presumptive negative 09/03/16 15:11 U Marijuana (THC) Screen Presumptive positive 09/03/16 15:11 Drugs of Abuse Note Disclamer 09/03/16 15:11 Rheumatoid Factor 24 IU/ml (0-13) H 09/08/16 11:48 SAHIL Screen Negative (Negative) 09/07/16 09:20 Proteinase 3 (PR3) Ab <1.0 AI (<1.0) 09/07/16 09:20 Myeloperoxidase Ab <1.0 AI (<1.0) 09/07/16 09:20 Sjogren's Antibody <1.0 AI (<1.0) 09/08/16 15:35 Scl-70 Scleroderma Ab <1.0 AI (<1.0) 09/08/16 15:35 Centromere B Antibody <1.0 AI (<1.0) 09/08/16 12:02 Heparin-induced Plt Ab Negative (Negative) 09/29/16 13:35 UF Heparin High Dose 11 % Release 09/29/16 13:35 SUDHIR UFH Low Dose 0.1 6 % Release 09/29/16 13:35 SUDHIR UFH Low Dose 0.5 8 % Release 09/29/16 13:35 Cardiolipid IgG Ab <14 GPL (<=14) 09/12/16 09:59 Cardiolipid IgA Ab <11 APL (<=11) 09/12/16 09:59 Cardiolipid IgM Ab <12 MPL (<=12) 09/12/16 09:59 Complement C3 148 mg/dL (90-180) 09/07/16 09:20 Complement C4 58 mg/dL (16-47) H 09/07/16 09:20 RPR Nonreactive (Nonreactive) 09/08/16 11:48 Hepatitis A IgM Ab Non-reactive (NonReactive) 09/24/16 14:40 Hep Bs Antigen Non-reactive (Negative) 09/24/16 14:40 Hep B Core IgM Ab Non-reactive (NonReactive) 09/24/16 14:40 Hepatitis C Antibody Non-reactive (NonReactive) 09/24/16 14:40 HIV 1&2 Antibody Rapid Non react (Non React) 09/08/16 11:48 HIV P24 Antigen Non react (Non React) 09/08/16 11:48 Miscellaneous Test Flexitest 1 H 11/05/16 13:25 Blood Type A POSITIVE 12/07/16 09:45 Antibody Screen Negative 12/07/16 09:45 DELORIS Antibody Screen Negative 11/24/16 11:20 Crossmatch See Detail 12/07/16 09:45
[2016-12-14] MEDS ORDERED: TPN ADULT IV SCH (20:00)
[2016-12-14] MEDS ORDERED: INTRALIPID 20% 250 ML IV SCH (20:00)
--- NOTE | 2016-12-14 20:34 | Progress Note ---
Assessment and Plan Assessment and Plan 46-year-old woman with a history of hypertension, diabetes, asthma, hyperlipidemia, chronic kidney disease and anxiety , who was brought in by family because, she couldn't get her words out, her face was also twisted, she was admitted for acute CVA and accelerated hypertension, she had a hx of poor adherence with her medications, and uncontrolled htn. Patient's SBP on admission was noted be greater than 260. TPA was started but this was discontinued after 5 minutes because her blood pressure became uncontrolled. The TPA was not initiated again because the patient was outside the TPA window. Leukocytosis CT abdomen done post code to evaluate for worsening leukocytosis.... probable fistula sp R thoracentesis on 11/14, 240cc of serous fluid removed, cx of fluid was negative Intra abdominal fistula ID following -Severe Sepsis with septic shock, recurrent. Patient with multiple episodes of sepsis. Initial episode due to presumed aspiration pneumonia and septic episode on 09/23 from candidemia then a third episode from peritonitis from gastric perforation from dislodged PEG , there was an abscess in the abdomen present at that time that was draining pus. +/-UTI. Surgical wound infection/gram-negative sepsis/candidemia/peritonitis -TPN for nutritional support -Promotility agents today, monitor response. No further episodes of vomiting this morning -continue wound care to ostomy sites -Bowel regimen JUANITA, now ESRD Likely due to vasomotor nephropathy and ATN given sepsis Nephrology input appreciated Acute CVA with infarct. sp TPA Continue neuro checks. Neurology input appreciated, CT shows continued evolution of left MCA infarct with slight mass effect and edema, and there is no hemorrhage - PRINCE showed hyperdynamic with ef of 75%, neither clot nor septal defect seen - MRA Brain shows near complete occlusion of M2 and M3 of the left MCA - Repeat CT scan done on 09/11, shows stable findings - carotid doppler negative - Echo shows preserved systolic function but does show some left ventricular diastolic dysfunction - continue asa and statin for secondary ppx Paroxysmal atrial fibrillation. On Metoprolol Persistent vegetative state This patient's needs placement at either hospice or SNF -She was denied for LTACH Acute hypoxic respiratory failure requiring MV >96hrs Status post tracheostomy, back on full mechanical ventilatory support s/p PEA arrest with ROSC. VAP bundle addressed. Continue with daily SBTs as tolerated VTE prophylaxis Stress ulcer prophylaxis Aspiration precautions HOB>40 Nosocomial acquired aspiration pneumonia/sepsis/UTI She had completed a course of antibiotics. Being monitored off antibiotics Asthma/COPD exacerbation s/p trach Continue bronchodilators Acute Toxic Metabolic encephalopathy( improved). Multitifactorial, mostly secondary to evolution of CVA Hypertensive Emergency-stable Now on Metoprolol, Cozaar,Hydralazine, Clonidine patch. Bilateral pleural effusion, s/p right thoracentesis Paroxysmal atrial fibrillation with rapid ventricular rate, failed cardioversion Continue current medications, Not a candidate for anticoagulation secondary to anemia, thrombocytopenia, and massive CVA Hypokalemia/Hypomagnesemia/hypophosphatemia. Replete electrolytes as needed. Diabetes type 2. Continue sliding-scale regular insulin and Accu-Cheks. Hyperlipidemia. Continue statin Nutrition continue tube feeds Anemia requiring multiple transfusions/acute blood loss Has received total 13 units of PRBC this admission. Will continue to transfuse to keep Hemoglobin above 7 Her POA is her Brother, Jam [phone] Disposition. Very poor prognosis. - Patient Problems (1) Acute respiratory failure with hypoxia Current Visit: Yes Status: Acute (2) Acute blood loss anemia Current Visit: Yes Status: Resolved (3) Acute CVA (cerebrovascular accident) Current Visit: Yes Status: Acute (4) Chronic renal insufficiency Current Visit: Yes Status: Acute Qualifiers: Chronic kidney disease stage: C (5) Uncontrolled hypertension Current Visit: Yes Status: Acute (6) Leukocytosis (leucocytosis) Current Visit: Yes Status: Acute Qualifiers: Leukocytosis type: leukemoid reaction Qualified Code(s): D72.823 - Leukemoid reaction (7) Dislodged gastrostomy tube Current Visit: Yes Status: Acute (8) Fungemia Current Visit: Yes Status: Resolved Subjective Date of service: 12/14/16 Principal diagnosis: Acute resp failure on MVS; S/P Acute CVA; Acute Encephalopathy; JUANITA Interval history: Seen and examined. Vitals, labs, medications, chart reviewed. On mechanical ventilatory support No further episodes of vomiting, no bowel movements Tolerating CPAP /, tidal volumes of 300. Not tolerating T-piece trials Discussed in interdisciplinary rounds Objective - Exam Narrative Exam: GEN: Ill appearing, trach, staring NECK: SUPPLE, trach in place, ngt in place CVS: regular currently NORMAL S1S2 LUNGS/CHEST: NORMAL CHEST EXPANSION B, GOOD AIR ENTRY B ABD: SOFT, NTND, 3 ostomy bags in 3 different locations, GBS, NO REBOUND OR GUARDING EXT/SKIN: NO SIGNIFICANT EDEMA OR RASH MSK: +spontaneous movement NEURO:Awake, alert, unresponsive. Not obeying any commands on a ventilator Vital Signs - 12hr 12/14/16 12/14/16 12/14/16 08:55 08:56 09:00 Temperature Pulse Rate 105 H 108 H Pulse Rate [ 95 H Anterior Bilateral Throughout] Respiratory 23 Rate Respiratory 18 Rate [Anterior Bilateral Throughout] Blood Pressure 108/63 116/69 O2 Sat by Pulse 95 96 Oximetry O2 Sat by Pulse Oximetry [ Assessment] 12/14/16 12/14/16 12/14/16 09:07 09:18 09:30 Temperature Pulse Rate 111 H 121 H Pulse Rate [ 97 H Anterior Bilateral Throughout] Respiratory 12 Rate Respiratory 18 Rate [Anterior Bilateral Throughout] Blood Pressure 114/75 118/69 O2 Sat by Pulse 97 Oximetry O2 Sat by Pulse Oximetry [ Assessment] 12/14/16 12/14/16 12/14/16 10:00 10:30 11:00 Temperature Pulse Rate 119 H 118 H 113 H Pulse Rate [ Anterior Bilateral Throughout] Respiratory 12 12 12 Rate Respiratory Rate [Anterior Bilateral Throughout] Blood Pressure 121/73 120/73 107/67 O2 Sat by Pulse 98 98 99 Oximetry O2 Sat by Pulse Oximetry [ Assessment] 12/14/16 12/14/16 12/14/16 11:06 11:21 11:30 Temperature 97.4 F L Pulse Rate 115 H Pulse Rate [ Anterior Bilateral Throughout] Respiratory 15 Rate Respiratory Rate [Anterior Bilateral Throughout] Blood Pressure 117/74 O2 Sat by Pulse 98 Oximetry O2 Sat by Pulse 98 Oximetry [ Assessment] 12/14/16 12/14/16 12/14/16 11:41 12:00 12:30 Temperature Pulse Rate 113 H 100 H 95 H Pulse Rate [ Anterior Bilateral Throughout] Respiratory 17 22 Rate Respiratory Rate [Anterior Bilateral Throughout] Blood Pressure 117/74 104/60 115/75 O2 Sat by Pulse 100 100 Oximetry O2 Sat by Pulse Oximetry [ Assessment] 12/14/16 12/14/16 12/14/16 13:00 13:30 13:50 Temperature Pulse Rate 92 H 93 H 98 H Pulse Rate [ Anterior Bilateral Throughout] Respiratory 23 25 H Rate Respiratory Rate [Anterior Bilateral Throughout] Blood Pressure 114/75 123/80 120/74 O2 Sat by Pulse 100 100 99 Oximetry O2 Sat by Pulse Oximetry [ Assessment] 12/14/16 12/14/16 12/14/16 14:00 14:30 14:43 Temperature Pulse Rate 93 H 96 H 98 H Pulse Rate [ Anterior Bilateral Throughout] Respiratory 18 21 Rate Respiratory Rate [Anterior Bilateral Throughout] Blood Pressure 104/77 115/73 115/73 O2 Sat by Pulse 100 99 Oximetry O2 Sat by Pulse Oximetry [ Assessment] 12/14/16 12/14/16 12/14/16 15:00 15:05 15:30 Temperature Pulse Rate 98 H 99 H Pulse Rate [ 98 H Anterior Bilateral Throughout] Respiratory 20 12 Rate Respiratory 20 Rate [Anterior Bilateral Throughout] Blood Pressure 120/74 105/56 O2 Sat by Pulse 99 98 Oximetry O2 Sat by Pulse Oximetry [ Assessment] 12/14/16 12/14/16 12/14/16 16:00 16:10 16:25 Temperature 97.6 F Pulse Rate 102 H 95 H Pulse Rate [ 96 H Anterior Bilateral Throughout] Respiratory 14 Rate Respiratory 22 Rate [Anterior Bilateral Throughout] Blood Pressure 112/61 94/58 O2 Sat by Pulse 98 97 Oximetry O2 Sat by Pulse Oximetry [ Assessment] 12/14/16 12/14/16 12/14/16 16:30 16:40 17:00 Temperature Pulse Rate 95 H 91 H Pulse Rate [ Anterior Bilateral Throughout] Respiratory 25 H 23 Rate Respiratory Rate [Anterior Bilateral Throughout] Blood Pressure 98/53 95/54 O2 Sat by Pulse 99 100 Oximetry O2 Sat by Pulse 97 Oximetry [ Assessment] 12/14/16 12/14/16 12/14/16 17:30 18:00 18:02 Temperature Pulse Rate 96 H 97 H 95 H Pulse Rate [ Anterior Bilateral Throughout] Respiratory 24 23 Rate Respiratory Rate [Anterior Bilateral Throughout] Blood Pressure 102/62 107/65 94/58 O2 Sat by Pulse 100 100 Oximetry O2 Sat by Pulse Oximetry [ Assessment] 12/14/16 12/14/16 12/14/16 19:33 19:35 20:00 Temperature 97.8 F Pulse Rate 108 H Pulse Rate [ 105 H Anterior Bilateral Throughout] Respiratory Rate Respiratory 14 Rate [Anterior Bilateral Throughout] Blood Pressure 112/65 O2 Sat by Pulse 97 Oximetry O2 Sat by Pulse Oximetry [ Assessment] 12/14/16 20:08 Temperature Pulse Rate Pulse Rate [ 114 H Anterior Bilateral Throughout] Respiratory Rate Respiratory 21 Rate [Anterior Bilateral Throughout] Blood Pressure O2 Sat by Pulse Oximetry O2 Sat by Pulse Oximetry [ Assessment] Constitutional: appears uncomfortable, other (not tracking) Eyes: non-icteric, other (tracheostomy tube in midline of neck) ENT: oropharynx moist, oropharyngeal exudate pre Neck: supple, no lymphadenopathy, no JVD, other (no thyromegaly) Effort: mildly labored Ascultation: Left: diminished breath sounds (base), Bilateral: clear, rales, rhonchi (and referred upper airway sounds) Percussion: Left: dull (base), Bilateral: not dull Cardiovascular: regular rate and rhythm, other (no rubs / murmurs) Gastrointestinal: hypoactive bowel sounds, soft, non-tender, non-distended, other (RLQ & LUQ stomas with colostomy bags) Integumentary: other (no rash; no cellulitis; poor turgor) Extremities: no cyanosis, pulses normal, no ischemia or petechiae, edema (1+ bilaterally) Neurologic: pupils equal and round, unable to assess, other (encephalopathic) Psychiatric: other (unable to assess) CBC and BMP: 12/19/16 05:02 12/20/16 07:07 ABG, PT/INR, D-dimer: ABG POC ABG pH 7.487 (7.35-7.45) H 11/25/16 14:12 ABG pH 7.450 pH Units (7.350-7.450) 12/05/16 Unknown POC ABG pCO2 39.0 (35-45) 11/25/16 14:12 ABG pCO2 29.6 mm Hg 12/05/16 Unknown POC ABG pO2 153 (80-105) H 11/25/16 14:12 ABG pO2 75.2 mm Hg (80.0-90.0) L 12/05/16 Unknown POC ABG HCO3 29.5 11/25/16 14:12 POC ABG Total CO2 31 11/25/16 14:12 POC ABG O2 Sat 99 11/25/16 14:12 ABG O2 Saturation 96.8 % (95.0-99.0) 12/05/16 Unknown PT/INR, D-dimer PT 16.8 Sec. (12.2-14.9) H 11/17/16 03:20 INR 1.37 (0.87-1.13) H 11/17/16 03:20 Abnormal lab findings: Abnormal Labs 09/03/16 09/03/16 09/03/16 12:12 15:07 16:20 WBC RBC Hgb Hct MCV MCH MCHC RDW Plt Count Lymph % (Auto) [place] % (Auto) Lymph # [place] # Baso # Seg Neutrophils % Seg Neuts % (Manual) Lymphocytes % (Manual) Monocytes % (Manual) Eosinophils % (Manual) Basophils % (Manual) Nucleated RBC % Seg Neutrophils # Seg Neutrophils # Man Lymphocytes # (Manual) Monocytes # (Manual) Eosinophils # (Manual) PT INR Fibrinogen dRVVT Confirm Interp Factor V Activity POC ABG pH 7.452 H POC ABG pCO2 POC ABG pO2 ABG pO2 ABG HCO3 ABG Base Excess ABG Hemoglobin Oxyhemoglobin Sodium Potassium Chloride Carbon Dioxide BUN Creatinine Glucose POC Glucose 178 H Lactic Acid Calcium Phosphorus 2.20 L Magnesium 1.60 L Direct Bilirubin AST ALT Alkaline Phosphatase Lactate Dehydrogenase Troponin T C-Reactive Protein Total Protein Albumin Prealbumin Triglycerides Cholesterol LDL Cholesterol Direct HDL Cholesterol Urine pH Urine WBC (Auto) Urine Creatinine Urine Total Protein Fluid Total Protein Vancomycin Trough Rheumatoid Factor Complement C4 Miscellaneous Test Crossmatch 09/03/16 09/03/16 09/03/16 17:57 17:58 23:50 WBC RBC Hgb Hct MCV MCH MCHC RDW Plt Count Lymph % (Auto) [place] % (Auto) Lymph # [place] # Baso # Seg Neutrophils % Seg Neuts % (Manual) Lymphocytes % (Manual) Monocytes % (Manual) Eosinophils % (Manual) Basophils % (Manual) Nucleated RBC % Seg Neutrophils # Seg Neutrophils # Man Lymphocytes # (Manual) Monocytes # (Manual) Eosinophils # (Manual) PT INR Fibrinogen dRVVT Confirm Interp Factor V Activity POC ABG pH POC ABG pCO2 POC ABG pO2 ABG pO2 ABG HCO3 ABG Base Excess ABG Hemoglobin Oxyhemoglobin Sodium Potassium Chloride Carbon Dioxide BUN Creatinine Glucose POC Glucose 162 H 145 H Lactic Acid Calcium Phosphorus 2.30 L Magnesium Direct Bilirubin AST ALT Alkaline Phosphatase Lactate Dehydrogenase Troponin T C-Reactive Protein Total Protein Albumin Prealbumin Triglycerides Cholesterol LDL Cholesterol Direct HDL Cholesterol Urine pH Urine WBC (Auto) Urine Creatinine Urine Total Protein Fluid Total Protein Vancomycin Trough Rheumatoid Factor Complement C4 Miscellaneous Test Crossmatch 09/04/16 09/04/1609/04/17 03:31 03:31 05:42 WBC RBC Hgb 9.7 L D Hct MCV 72 L MCH 23 L MCHC RDW 17.5 H Plt Count Lymph % (Auto) 11.1 L [place] % (Auto) Lymph # [place] # Baso # Seg Neutrophils % 84.3 H Seg Neuts % (Manual) Lymphocytes % (Manual) Monocytes % (Manual) Eosinophils % (Manual) Basophils % (Manual) Nucleated RBC % Seg Neutrophils # 8.9 H Seg Neutrophils # Man Lymphocytes # (Manual) Monocytes # (Manual) Eosinophils # (Manual) PT INR Fibrinogen dRVVT Confirm Interp Factor V Activity POC ABG pH POC ABG pCO2 POC ABG pO2 ABG pO2 ABG HCO3 ABG Base Excess ABG Hemoglobin Oxyhemoglobin Sodium 135 L Potassium 2.9 L* Chloride 97.2 L Carbon Dioxide 19 L BUN Creatinine 1.7 H Glucose 170 H POC Glucose 152 H Lactic Acid Calcium Phosphorus Magnesium Direct Bilirubin AST ALT Alkaline Phosphatase Lactate Dehydrogenase Troponin T C-Reactive Protein Total Protein Albumin Prealbumin Triglycerides 160 H Cholesterol LDL Cholesterol Direct HDL Cholesterol 31 L Urine pH Urine WBC (Auto) Urine Creatinine Urine Total Protein Fluid Total Protein Vancomycin Trough Rheumatoid Factor Complement C4 Miscellaneous Test Crossmatch 09/04/16 09/04/16 09/04/16 11:34 17:46 23:29 WBC RBC Hgb Hct MCV MCH MCHC RDW Plt Count Lymph % (Auto) [place] % (Auto) Lymph # [place] # Baso # Seg Neutrophils % Seg Neuts % (Manual) Lymphocytes % (Manual) Monocytes % (Manual) Eosinophils % (Manual) Basophils % (Manual) Nucleated RBC % Seg Neutrophils # Seg Neutrophils # Man Lymphocytes # (Manual) Monocytes # (Manual) Eosinophils # (Manual) PT INR Fibrinogen dRVVT Confirm Interp Factor V Activity POC ABG pH POC ABG pCO2 POC ABG pO2 ABG pO2 ABG HCO3 ABG Base Excess ABG Hemoglobin Oxyhemoglobin Sodium Potassium Chloride Carbon Dioxide BUN Creatinine Glucose POC Glucose 165 H 210 H 139 H Lactic Acid Calcium Phosphorus Magnesium Direct Bilirubin AST ALT Alkaline Phosphatase Lactate Dehydrogenase Troponin T C-Reactive Protein Total Protein Albumin Prealbumin Triglycerides Cholesterol LDL Cholesterol Direct HDL Cholesterol Urine pH Urine WBC (Auto) Urine Creatinine Urine Total Protein Fluid Total Protein Vancomycin Trough Rheumatoid Factor Complement C4 Miscellaneous Test Crossmatch 09/05/16 09/05/16 09/05/16 04:05 04:05 05:38 WBC RBC Hgb Hct MCV 76 L D MCH 23 L MCHC RDW 17.8 H Plt Count Lymph % (Auto) [place] % (Auto) Lymph # [place] # Baso # Seg Neutrophils % Seg Neuts % (Manual) Lymphocytes % (Manual) Monocytes % (Manual) Eosinophils % (Manual) Basophils % (Manual) Nucleated RBC % Seg Neutrophils # Seg Neutrophils # Man Lymphocytes # (Manual) Monocytes # (Manual) Eosinophils # (Manual) PT INR Fibrinogen dRVVT Confirm Interp Factor V Activity POC ABG pH POC ABG pCO2 POC ABG pO2 ABG pO2 ABG HCO3 ABG Base Excess ABG Hemoglobin Oxyhemoglobin Sodium 134 L Potassium Chloride Carbon Dioxide 18 L BUN Creatinine 1.8 H Glucose 192 H POC Glucose 175 H Lactic Acid Calcium Phosphorus Magnesium Direct Bilirubin AST ALT Alkaline Phosphatase Lactate Dehydrogenase Troponin T C-Reactive Protein Total Protein Albumin Prealbumin Triglycerides Cholesterol LDL Cholesterol Direct HDL Cholesterol Urine pH Urine WBC (Auto) Urine Creatinine Urine Total Protein Fluid Total Protein Vancomycin Trough Rheumatoid Factor Complement C4 Miscellaneous Test Crossmatch 09/05/16 09/05/16 09/05/16 11:38 17:48 23:22 WBC RBC Hgb Hct MCV MCH MCHC RDW Plt Count Lymph % (Auto) [place] % (Auto) Lymph # [place] # Baso # Seg Neutrophils % Seg Neuts % (Manual) Lymphocytes % (Manual) Monocytes % (Manual) Eosinophils % (Manual) Basophils % (Manual) Nucleated RBC % Seg Neutrophils # Seg Neutrophils # Man Lymphocytes # (Manual) Monocytes # (Manual) Eosinophils # (Manual) PT INR Fibrinogen dRVVT Confirm Interp Factor V Activity POC ABG pH POC ABG pCO2 POC ABG pO2 ABG pO2 ABG HCO3 ABG Base Excess ABG Hemoglobin Oxyhemoglobin Sodium Potassium Chloride Carbon Dioxide BUN Creatinine Glucose POC Glucose 164 H 186 H 195 H Lactic Acid Calcium Phosphorus Magnesium Direct Bilirubin AST ALT Alkaline Phosphatase Lactate Dehydrogenase Troponin T C-Reactive Protein Total Protein Albumin Prealbumin Triglycerides Cholesterol LDL Cholesterol Direct HDL Cholesterol Urine pH Urine WBC (Auto) Urine Creatinine Urine Total Protein Fluid Total Protein Vancomycin Trough Rheumatoid Factor Complement C4 Miscellaneous Test Crossmatch 09/06/16 09/06/16 09/06/16 04:12 05:59 07:32 WBC RBC Hgb Hct MCV MCH MCHC RDW Plt Count Lymph % (Auto) [place] % (Auto) Lymph # [place] # Baso # Seg Neutrophils % Seg Neuts % (Manual) Lymphocytes % (Manual) Monocytes % (Manual) Eosinophils % (Manual) Basophils % (Manual) Nucleated RBC % Seg Neutrophils # Seg Neutrophils # Man Lymphocytes # (Manual) Monocytes # (Manual) Eosinophils # (Manual) PT INR Fibrinogen dRVVT Confirm Interp Factor V Activity POC ABG pH 7.514 H POC ABG pCO2 29.1 L POC ABG pO2 72 L ABG pO2 ABG HCO3 ABG Base Excess ABG Hemoglobin Oxyhemoglobin Sodium 133 L Potassium 3.4 L Chloride 94.9 L Carbon Dioxide 19 L BUN 30 H Creatinine 2.1 H Glucose 139 H POC Glucose 146 H Lactic Acid Calcium Phosphorus Magnesium Direct Bilirubin AST ALT Alkaline Phosphatase Lactate Dehydrogenase Troponin T C-Reactive Protein Total Protein Albumin Prealbumin Triglycerides Cholesterol LDL Cholesterol Direct HDL Cholesterol Urine pH Urine WBC (Auto) Urine Creatinine Urine Total Protein Fluid Total Protein Vancomycin Trough Rheumatoid Factor Complement C4 Miscellaneous Test Crossmatch 09/06/16 09/06/16 09/06/16 11:57 17:58 19:02 WBC RBC Hgb Hct MCV MCH MCHC RDW Plt Count Lymph % (Auto) [place] % (Auto) Lymph # [place] # Baso # Seg Neutrophils % Seg Neuts % (Manual) Lymphocytes % (Manual) Monocytes % (Manual) Eosinophils % (Manual) Basophils % (Manual) Nucleated RBC % Seg Neutrophils # Seg Neutrophils # Man Lymphocytes # (Manual) Monocytes # (Manual) Eosinophils # (Manual) PT INR Fibrinogen dRVVT Confirm Interp Factor V Activity POC ABG pH 7.465 H POC ABG pCO2 32.0 L POC ABG pO2 ABG pO2 ABG HCO3 ABG Base Excess ABG Hemoglobin Oxyhemoglobin Sodium Potassium Chloride Carbon Dioxide BUN Creatinine Glucose POC Glucose 165 H 160 H Lactic Acid Calcium Phosphorus Magnesium Direct Bilirubin AST ALT Alkaline Phosphatase Lactate Dehydrogenase Troponin T C-Reactive Protein Total Protein Albumin Prealbumin Triglycerides Cholesterol LDL Cholesterol Direct HDL Cholesterol Urine pH Urine WBC (Auto) Urine Creatinine Urine Total Protein Fluid Total Protein Vancomycin Trough Rheumatoid Factor Complement C4 Miscellaneous Test Crossmatch 09/06/16 09/07/16 09/07/16 23:45 02:47 02:47 WBC RBC Hgb Hct MCV MCH MCHC RDW Plt Count Lymph % (Auto) [place] % (Auto) Lymph # [place] # Baso # Seg Neutrophils % Seg Neuts % (Manual) Lymphocytes % (Manual) Monocytes % (Manual) Eosinophils % (Manual) Basophils % (Manual) Nucleated RBC % Seg Neutrophils # Seg Neutrophils # Man Lymphocytes # (Manual) Monocytes # (Manual) Eosinophils # (Manual) PT INR Fibrinogen dRVVT Confirm Interp Factor V Activity POC ABG pH POC ABG pCO2 POC ABG pO2 ABG pO2 ABG HCO3 ABG Base Excess ABG Hemoglobin Oxyhemoglobin Sodium Potassium Chloride Carbon Dioxide BUN Creatinine Glucose POC Glucose 204 H Lactic Acid Calcium Phosphorus Magnesium Direct Bilirubin AST ALT Alkaline Phosphatase Lactate Dehydrogenase Troponin T C-Reactive Protein Total Protein Albumin Prealbumin Triglycerides Cholesterol LDL Cholesterol Direct HDL Cholesterol Urine pH Urine WBC (Auto) 68.0 H Urine Creatinine 106.1 H Urine Total Protein Fluid Total Protein Vancomycin Trough Rheumatoid Factor Complement C4 Miscellaneous Test Crossmatch 09/07/16 09/07/16 09/07/16 04:50 06:19 06:39 WBC RBC Hgb Hct MCV MCH MCHC RDW Plt Count Lymph % (Auto) [place] % (Auto) Lymph # [place] # Baso # Seg Neutrophils % Seg Neuts % (Manual) Lymphocytes % (Manual) Monocytes % (Manual) Eosinophils % (Manual) Basophils % (Manual) Nucleated RBC % Seg Neutrophils # Seg Neutrophils # Man Lymphocytes # (Manual) Monocytes # (Manual) Eosinophils # (Manual) PT INR Fibrinogen dRVVT Confirm Interp Factor V Activity POC ABG pH 7.457 H POC ABG pCO2 32.1 L POC ABG pO2 76 L ABG pO2 ABG HCO3 ABG Base Excess ABG Hemoglobin Oxyhemoglobin Sodium 132 L Potassium Chloride 94.7 L Carbon Dioxide BUN 53 H Creatinine 2.9 H Glucose 151 H POC Glucose 149 H Lactic Acid Calcium Phosphorus Magnesium Direct Bilirubin AST ALT Alkaline Phosphatase Lactate Dehydrogenase Troponin T C-Reactive Protein Total Protein Albumin Prealbumin Triglycerides Cholesterol LDL Cholesterol Direct HDL Cholesterol Urine pH Urine WBC (Auto) Urine Creatinine Urine Total Protein Fluid Total Protein Vancomycin Trough Rheumatoid Factor Complement C4 Miscellaneous Test Crossmatch 09/07/16 09/07/16 09/07/16 09:20 11:43 11:43 WBC 19.4 H RBC Hgb 8.3 L Hct 26.4 L D MCV 72 L D MCH 22 L MCHC RDW 17.9 H Plt Count Lymph % (Auto) 8.5 L [place] % (Auto) Lymph # [place] # 1.0 H Baso # Seg Neutrophils % 85.8 H Seg Neuts % (Manual) Lymphocytes % (Manual) Monocytes % (Manual) Eosinophils % (Manual) Basophils % (Manual) Nucleated RBC % Seg Neutrophils # 16.6 H Seg Neutrophils # Man Lymphocytes # (Manual) Monocytes # (Manual) Eosinophils # (Manual) PT INR Fibrinogen dRVVT Confirm Interp Factor V Activity POC ABG pH POC ABG pCO2 POC ABG pO2 ABG pO2 ABG HCO3 ABG Base Excess ABG Hemoglobin Oxyhemoglobin Sodium 134 L Potassium Chloride 97.2 L Carbon Dioxide 20 L BUN 58 H Creatinine 2.9 H Glucose 147 H POC Glucose Lactic Acid Calcium Phosphorus 2.40 L Magnesium 2.40 H Direct Bilirubin AST ALT Alkaline Phosphatase Lactate Dehydrogenase Troponin T C-Reactive Protein Total Protein 5.8 L Albumin 2.2 L Prealbumin Triglycerides Cholesterol LDL Cholesterol Direct HDL Cholesterol Urine pH Urine WBC (Auto) Urine Creatinine Urine Total Protein Fluid Total Protein Vancomycin Trough Rheumatoid Factor Complement C4 58 H Miscellaneous Test Crossmatch 09/07/16 09/07/16 09/07/16 11:50 16:00 17:31 WBC RBC Hgb Hct MCV MCH MCHC RDW Plt Count Lymph % (Auto) [place] % (Auto) Lymph # [place] # Baso # Seg Neutrophils % Seg Neuts % (Manual) Lymphocytes % (Manual) Monocytes % (Manual) Eosinophils % (Manual) Basophils % (Manual) Nucleated RBC % Seg Neutrophils # Seg Neutrophils # Man Lymphocytes # (Manual) Monocytes # (Manual) Eosinophils # (Manual) PT INR Fibrinogen dRVVT Confirm Interp Factor V Activity POC ABG pH POC ABG pCO2 POC ABG pO2 158 H ABG pO2 ABG HCO3 ABG Base Excess ABG Hemoglobin Oxyhemoglobin Sodium Potassium Chloride Carbon Dioxide BUN Creatinine Glucose POC Glucose 175 H Lactic Acid Calcium Phosphorus Magnesium Direct Bilirubin AST ALT Alkaline Phosphatase Lactate Dehydrogenase Troponin T C-Reactive Protein Total Protein Albumin Prealbumin Triglycerides Cholesterol LDL Cholesterol Direct HDL Cholesterol Urine pH Urine WBC (Auto) Urine Creatinine 66.3 H Urine Total Protein Fluid Total Protein Vancomycin Trough Rheumatoid Factor Complement C4 Miscellaneous Test Crossmatch 09/07/16 09/08/16 09/08/16 23:50 05:46 06:18 WBC 17.8 H RBC 3.58 L Hgb 8.1 L Hct 25.5 L MCV 71 L MCH 23 L MCHC RDW 18.4 H Plt Count Lymph % (Auto) [place] % (Auto) Lymph # [place] # Baso # Seg Neutrophils % Seg Neuts % (Manual) 92.0 H Lymphocytes % (Manual) 6.0 L Monocytes % (Manual) Eosinophils % (Manual) Basophils % (Manual) Nucleated RBC % Seg Neutrophils # Seg Neutrophils # Man 16.4 H Lymphocytes # (Manual) 1.1 L Monocytes # (Manual) Eosinophils # (Manual) PT INR Fibrinogen dRVVT Confirm Interp Factor V Activity POC ABG pH POC ABG pCO2 34.3 L POC ABG pO2 71 L ABG pO2 ABG HCO3 ABG Base Excess ABG Hemoglobin Oxyhemoglobin Sodium Potassium Chloride Carbon Dioxide BUN Creatinine Glucose POC Glucose 216 H Lactic Acid Calcium Phosphorus Magnesium Direct Bilirubin AST ALT Alkaline Phosphatase Lactate Dehydrogenase Troponin T C-Reactive Protein Total Protein Albumin Prealbumin Triglycerides Cholesterol LDL Cholesterol Direct HDL Cholesterol Urine pH Urine WBC (Auto) Urine Creatinine Urine Total Protein Fluid Total Protein Vancomycin Trough Rheumatoid Factor Complement C4 Miscellaneous Test Crossmatch 09/08/16 09/08/16 09/08/16 06:18 06:51 10:55 WBC RBC Hgb Hct MCV MCH MCHC RDW Plt Count Lymph % (Auto) [place] % (Auto) Lymph # [place] # Baso # Seg Neutrophils % Seg Neuts % (Manual) Lymphocytes % (Manual) Monocytes % (Manual) Eosinophils % (Manual) Basophils % (Manual) Nucleated RBC % Seg Neutrophils # Seg Neutrophils # Man Lymphocytes # (Manual) Monocytes # (Manual) Eosinophils # (Manual) PT INR Fibrinogen dRVVT Confirm Interp Factor V Activity POC ABG pH POC ABG pCO2 POC ABG pO2 ABG pO2 ABG HCO3 ABG Base Excess ABG Hemoglobin Oxyhemoglobin Sodium 133 L Potassium Chloride 96.9 L Carbon Dioxide 20 L BUN 63 H Creatinine 2.7 H Glucose 195 H POC Glucose 204 H 169 H Lactic Acid Calcium Phosphorus Magnesium Direct Bilirubin AST ALT Alkaline Phosphatase Lactate Dehydrogenase Troponin T C-Reactive Protein Total Protein Albumin Prealbumin Triglycerides Cholesterol LDL Cholesterol Direct HDL Cholesterol Urine pH Urine WBC (Auto) Urine Creatinine Urine Total Protein Fluid Total Protein Vancomycin Trough Rheumatoid Factor Complement C4 Miscellaneous Test Crossmatch 09/08/16 09/08/16 09/08/16 11:48 11:48 11:48 WBC RBC Hgb Hct MCV MCH MCHC RDW Plt Count Lymph % (Auto) [place] % (Auto) Lymph # [place] # Baso # Seg Neutrophils % Seg Neuts % (Manual) Lymphocytes % (Manual) Monocytes % (Manual) Eosinophils % (Manual) Basophils % (Manual) Nucleated RBC % Seg Neutrophils # Seg Neutrophils # Man Lymphocytes # (Manual) Monocytes # (Manual) Eosinophils # (Manual) PT INR Fibrinogen 750 H dRVVT Confirm Interp Factor V Activity POC ABG pH POC ABG pCO2 POC ABG pO2 ABG pO2 ABG HCO3 ABG Base Excess ABG Hemoglobin Oxyhemoglobin Sodium Potassium Chloride Carbon Dioxide BUN Creatinine Glucose POC Glucose Lactic Acid Calcium Phosphorus Magnesium Direct Bilirubin AST ALT Alkaline Phosphatase Lactate Dehydrogenase Troponin T C-Reactive Protein 15.70 H Total Protein Albumin Prealbumin Triglycerides Cholesterol LDL Cholesterol Direct HDL Cholesterol Urine pH Urine WBC (Auto) Urine Creatinine Urine Total Protein Fluid Total Protein Vancomycin Trough Rheumatoid Factor 24 H Complement C4 Miscellaneous Test Crossmatch 09/08/16 09/08/16 09/09/16 15:35 18:25 00:24 WBC RBC Hgb Hct MCV MCH MCHC RDW Plt Count Lymph % (Auto) [place] % (Auto) Lymph # [place] # Baso # Seg Neutrophils % Seg Neuts % (Manual) Lymphocytes % (Manual) Monocytes % (Manual) Eosinophils % (Manual) Basophils % (Manual) Nucleated RBC % Seg Neutrophils # Seg Neutrophils # Man Lymphocytes # (Manual) Monocytes # (Manual) Eosinophils # (Manual) PT INR Fibrinogen dRVVT Confirm Interp Factor V Activity 182 H POC ABG pH POC ABG pCO2 POC ABG pO2 ABG pO2 ABG HCO3 ABG Base Excess ABG Hemoglobin Oxyhemoglobin Sodium Potassium Chloride Carbon Dioxide BUN Creatinine Glucose POC Glucose 184 H 216 H Lactic Acid Calcium Phosphorus Magnesium Direct Bilirubin AST ALT Alkaline Phosphatase Lactate Dehydrogenase Troponin T C-Reactive Protein Total Protein Albumin Prealbumin Triglycerides Cholesterol LDL Cholesterol Direct HDL Cholesterol Urine pH Urine WBC (Auto) Urine Creatinine Urine Total Protein Fluid Total Protein Vancomycin Trough Rheumatoid Factor Complement C4 Miscellaneous Test Crossmatch 09/09/16 09/09/16 09/09/16 03:00 03:00 04:04 WBC 27.9 H RBC Hgb 8.7 L Hct 28.1 L MCV 72 L MCH 22 L MCHC RDW 18.4 H Plt Count 485 H Lymph % (Auto) [place] % (Auto) Lymph # [place] # Baso # Seg Neutrophils % Seg Neuts % (Manual) 77.0 H Lymphocytes % (Manual) 9.0 L Monocytes % (Manual) Eosinophils % (Manual) Basophils % (Manual) Nucleated RBC % Seg Neutrophils # Seg Neutrophils # Man 21.5 H Lymphocytes # (Manual) Monocytes # (Manual) 2.0 H Eosinophils # (Manual) PT INR Fibrinogen dRVVT Confirm Interp Factor V Activity POC ABG pH POC ABG pCO2 POC ABG pO2 121 H ABG pO2 ABG HCO3 ABG Base Excess ABG Hemoglobin Oxyhemoglobin Sodium 135 L Potassium Chloride 96.3 L Carbon Dioxide 21 L BUN 83 H Creatinine 3.0 H Glucose 135 H POC Glucose Lactic Acid Calcium Phosphorus Magnesium Direct Bilirubin AST ALT Alkaline Phosphatase Lactate Dehydrogenase Troponin T C-Reactive Protein Total Protein Albumin Prealbumin Triglycerides Cholesterol LDL Cholesterol Direct HDL Cholesterol Urine pH Urine WBC (Auto) Urine Creatinine Urine Total Protein Fluid Total Protein Vancomycin Trough Rheumatoid Factor Complement C4 Miscellaneous Test Crossmatch 09/09/16 09/09/16 09/09/16 05:41 11:55 14:13 WBC RBC Hgb Hct MCV MCH MCHC RDW Plt Count Lymph % (Auto) [place] % (Auto) Lymph # [place] # Baso # Seg Neutrophils % Seg Neuts % (Manual) Lymphocytes % (Manual) Monocytes % (Manual) Eosinophils % (Manual) Basophils % (Manual) Nucleated RBC % Seg Neutrophils # Seg Neutrophils # Man Lymphocytes # (Manual) Monocytes # (Manual) Eosinophils # (Manual) PT INR Fibrinogen dRVVT Confirm Interp Factor V Activity POC ABG pH POC ABG pCO2 POC ABG pO2 ABG pO2 ABG HCO3 ABG Base Excess ABG Hemoglobin Oxyhemoglobin Sodium Potassium Chloride Carbon Dioxide BUN Creatinine Glucose POC Glucose 155 H 186 H Lactic Acid Calcium Phosphorus Magnesium Direct Bilirubin AST ALT Alkaline Phosphatase Lactate Dehydrogenase Troponin T C-Reactive Protein Total Protein Albumin Prealbumin Triglycerides Cholesterol LDL Cholesterol Direct HDL Cholesterol Urine pH Urine WBC (Auto) 25.0 H Urine Creatinine Urine Total Protein Fluid Total Protein Vancomycin Trough Rheumatoid Factor Complement C4 Miscellaneous Test Crossmatch 09/09/16 09/09/16 09/10/16 17:33 23:13 05:09 WBC RBC Hgb Hct MCV MCH MCHC RDW Plt Count Lymph % (Auto) [place] % (Auto) Lymph # [place] # Baso # Seg Neutrophils % Seg Neuts % (Manual) Lymphocytes % (Manual) Monocytes % (Manual) Eosinophils % (Manual) Basophils % (Manual) Nucleated RBC % Seg Neutrophils # Seg Neutrophils # Man Lymphocytes # (Manual) Monocytes # (Manual) Eosinophils # (Manual) PT INR Fibrinogen dRVVT Confirm Interp Factor V Activity POC ABG pH POC ABG pCO2 POC ABG pO2 74 L ABG pO2 ABG HCO3 ABG Base Excess ABG Hemoglobin Oxyhemoglobin Sodium Potassium Chloride Carbon Dioxide BUN Creatinine Glucose POC Glucose 211 H 215 H Lactic Acid Calcium Phosphorus Magnesium Direct Bilirubin AST ALT Alkaline Phosphatase Lactate Dehydrogenase Troponin T C-Reactive Protein Total Protein Albumin Prealbumin Triglycerides Cholesterol LDL Cholesterol Direct HDL Cholesterol Urine pH Urine WBC (Auto) Urine Creatinine Urine Total Protein Fluid Total Protein Vancomycin Trough Rheumatoid Factor Complement C4 Miscellaneous Test Crossmatch 09/10/16 09/10/16 09/10/16 05:17 05:17 11:31 WBC 15.8 H RBC 3.25 L Hgb 7.3 L Hct 22.9 L MCV 71 L MCH 23 L MCHC RDW 18.4 H Plt Count Lymph % (Auto) [place] % (Auto) Lymph # [place] # Baso # Seg Neutrophils % Seg Neuts % (Manual) 91.0 H Lymphocytes % (Manual) 4.0 L Monocytes % (Manual) Eosinophils % (Manual) Basophils % (Manual) Nucleated RBC % Seg Neutrophils # Seg Neutrophils # Man 14.4 H Lymphocytes # (Manual) 0.6 L Monocytes # (Manual) Eosinophils # (Manual) PT INR Fibrinogen dRVVT Confirm Interp Factor V Activity POC ABG pH POC ABG pCO2 POC ABG pO2 ABG pO2 ABG HCO3 ABG Base Excess ABG Hemoglobin Oxyhemoglobin Sodium Potassium Chloride Carbon Dioxide 21 L BUN 93 H Creatinine 2.9 H Glucose 146 H POC Glucose 188 H Lactic Acid Calcium 8.1 L Phosphorus Magnesium Direct Bilirubin AST ALT Alkaline Phosphatase Lactate Dehydrogenase Troponin T C-Reactive Protein Total Protein Albumin Prealbumin Triglycerides Cholesterol LDL Cholesterol Direct HDL Cholesterol Urine pH Urine WBC (Auto) Urine Creatinine Urine Total Protein Fluid Total Protein Vancomycin Trough Rheumatoid Factor Complement C4 Miscellaneous Test Crossmatch 09/10/16 09/10/16 09/10/16 13:17 17:20 23:32 WBC RBC Hgb Hct MCV MCH MCHC RDW Plt Count Lymph % (Auto) [place] % (Auto) Lymph # [place] # Baso # Seg Neutrophils % Seg Neuts % (Manual) Lymphocytes % (Manual) Monocytes % (Manual) Eosinophils % (Manual) Basophils % (Manual) Nucleated RBC % Seg Neutrophils # Seg Neutrophils # Man Lymphocytes # (Manual) Monocytes # (Manual) Eosinophils # (Manual) PT INR Fibrinogen dRVVT Confirm Interp Factor V Activity POC ABG pH POC ABG pCO2 POC ABG pO2 ABG pO2 ABG HCO3 ABG Base Excess ABG Hemoglobin Oxyhemoglobin Sodium Potassium Chloride Carbon Dioxide BUN Creatinine Glucose POC Glucose 199 H 186 H Lactic Acid Calcium Phosphorus Magnesium Direct Bilirubin AST ALT Alkaline Phosphatase Lactate Dehydrogenase Troponin T C-Reactive Protein Total Protein Albumin Prealbumin Triglycerides Cholesterol LDL Cholesterol Direct HDL Cholesterol Urine pH Urine WBC (Auto) Urine Creatinine Urine Total Protein Fluid Total Protein Vancomycin Trough Rheumatoid Factor Complement C4 Miscellaneous Test Crossmatch See Detail 09/11/16 09/11/16 09/11/16 05:10 05:10 05:17 WBC 28.4 H RBC Hgb 9.2 L Hct 29.3 L D MCV 73 L MCH 23 L MCHC RDW 18.9 H Plt Count 452 H Lymph % (Auto) [place] % (Auto) Lymph # [place] # Baso # Seg Neutrophils % Seg Neuts % (Manual) 89.5 H Lymphocytes % (Manual) 2.0 L Monocytes % (Manual) Eosinophils % (Manual) Basophils % (Manual) Nucleated RBC % Seg Neutrophils # Seg Neutrophils # Man 25.4 H Lymphocytes # (Manual) 0.6 L Monocytes # (Manual) 1.3 H Eosinophils # (Manual) PT INR Fibrinogen dRVVT Confirm Interp Factor V Activity POC ABG pH POC ABG pCO2 POC ABG pO2 ABG pO2 ABG HCO3 ABG Base Excess ABG Hemoglobin Oxyhemoglobin Sodium 136 L Potassium Chloride Carbon Dioxide 18 L BUN 107 H Creatinine 2.6 H Glucose 187 H POC Glucose 230 H Lactic Acid Calcium 8.3 L Phosphorus Magnesium Direct Bilirubin AST ALT Alkaline Phosphatase Lactate Dehydrogenase Troponin T C-Reactive Protein Total Protein Albumin Prealbumin Triglycerides Cholesterol LDL Cholesterol Direct HDL Cholesterol Urine pH Urine WBC (Auto) Urine Creatinine Urine Total Protein Fluid Total Protein Vancomycin Trough Rheumatoid Factor Complement C4 Miscellaneous Test Crossmatch 09/11/16 09/11/16 09/11/16 05:55 12:02 17:32 WBC RBC Hgb Hct MCV MCH MCHC RDW Plt Count Lymph % (Auto) [place] % (Auto) Lymph # [place] # Baso # Seg Neutrophils % Seg Neuts % (Manual) Lymphocytes % (Manual) Monocytes % (Manual) Eosinophils % (Manual) Basophils % (Manual) Nucleated RBC % Seg Neutrophils # Seg Neutrophils # Man Lymphocytes # (Manual) Monocytes # (Manual) Eosinophils # (Manual) PT INR Fibrinogen dRVVT Confirm Interp Factor V Activity POC ABG pH POC ABG pCO2 33.8 L POC ABG pO2 ABG pO2 ABG HCO3 ABG Base Excess ABG Hemoglobin Oxyhemoglobin Sodium Potassium Chloride Carbon Dioxide BUN Creatinine Glucose POC Glucose 191 H 239 H Lactic Acid Calcium Phosphorus Magnesium Direct Bilirubin AST ALT Alkaline Phosphatase Lactate Dehydrogenase Troponin T C-Reactive Protein Total Protein Albumin Prealbumin Triglycerides Cholesterol LDL Cholesterol Direct HDL Cholesterol Urine pH Urine WBC (Auto) Urine Creatinine Urine Total Protein Fluid Total Protein Vancomycin Trough Rheumatoid Factor Complement C4 Miscellaneous Test Crossmatch 09/11/16 09/12/16 09/12/16 23:52 05:09 05:32 WBC RBC Hgb Hct MCV MCH MCHC RDW Plt Count Lymph % (Auto) [place] % (Auto) Lymph # [place] # Baso # Seg Neutrophils % Seg Neuts % (Manual) Lymphocytes % (Manual) Monocytes % (Manual) Eosinophils % (Manual) Basophils % (Manual) Nucleated RBC % Seg Neutrophils # Seg Neutrophils # Man Lymphocytes # (Manual) Monocytes # (Manual) Eosinophils # (Manual) PT INR Fibrinogen dRVVT Confirm Interp Factor V Activity POC ABG pH POC ABG pCO2 34.6 L POC ABG pO2 ABG pO2 ABG HCO3 ABG Base Excess ABG Hemoglobin Oxyhemoglobin Sodium Potassium Chloride Carbon Dioxide BUN Creatinine Glucose POC Glucose 265 H 184 H Lactic Acid Calcium Phosphorus Magnesium Direct Bilirubin AST ALT Alkaline Phosphatase Lactate Dehydrogenase Troponin T C-Reactive Protein Total Protein Albumin Prealbumin Triglycerides Cholesterol LDL Cholesterol Direct HDL Cholesterol Urine pH Urine WBC (Auto) Urine Creatinine Urine Total Protein Fluid Total Protein Vancomycin Trough Rheumatoid Factor Complement C4 Miscellaneous Test Crossmatch 09/12/16 09/12/16 09/12/16 06:45 06:45 07:22 WBC 31.7 H RBC 3.54 L Hgb 8.3 L Hct 25.9 L MCV 73 L MCH 23 L MCHC RDW 18.9 H Plt Count Lymph % (Auto) [place] % (Auto) Lymph # [place] # Baso # Seg Neutrophils % Seg Neuts % (Manual) 88.5 H Lymphocytes % (Manual) 4.5 L Monocytes % (Manual) Eosinophils % (Manual) Basophils % (Manual) Nucleated RBC % Seg Neutrophils # Seg Neutrophils # Man 28.1 H Lymphocytes # (Manual) Monocytes # (Manual) 1.0 H Eosinophils # (Manual) PT INR Fibrinogen dRVVT Confirm Interp Factor V Activity POC ABG pH POC ABG pCO2 POC ABG pO2 ABG pO2 ABG HCO3 ABG Base Excess ABG Hemoglobin Oxyhemoglobin Sodium Potassium Chloride Carbon Dioxide 20 L BUN 115 H Creatinine 2.7 H Glucose 165 H POC Glucose Lactic Acid Calcium 8.0 L Phosphorus Magnesium Direct Bilirubin AST ALT Alkaline Phosphatase Lactate Dehydrogenase Troponin T C-Reactive Protein Total Protein Albumin Prealbumin Triglycerides 217 H Cholesterol LDL Cholesterol Direct HDL Cholesterol Urine pH Urine WBC (Auto) Urine Creatinine Urine Total Protein Fluid Total Protein Vancomycin Trough Rheumatoid Factor Complement C4 Miscellaneous Test Crossmatch 09/12/16 09/12/16 09/12/16 07:22 09:59 12:21 WBC RBC Hgb Hct MCV MCH MCHC RDW Plt Count Lymph % (Auto) [place] % (Auto) Lymph # [place] # Baso # Seg Neutrophils % Seg Neuts % (Manual) Lymphocytes % (Manual) Monocytes % (Manual) Eosinophils % (Manual) Basophils % (Manual) Nucleated RBC % Seg Neutrophils # Seg Neutrophils # Man Lymphocytes # (Manual) Monocytes # (Manual) Eosinophils # (Manual) PT INR Fibrinogen dRVVT Confirm Interp Positive H Factor V Activity POC ABG pH POC ABG pCO2 POC ABG pO2 ABG pO2 ABG HCO3 ABG Base Excess ABG Hemoglobin Oxyhemoglobin Sodium Potassium Chloride Carbon Dioxide BUN Creatinine Glucose POC Glucose 224 H Lactic Acid Calcium Phosphorus Magnesium Direct Bilirubin AST ALT Alkaline Phosphatase Lactate Dehydrogenase Troponin T C-Reactive Protein 1.70 H Total Protein Albumin Prealbumin Triglycerides Cholesterol LDL Cholesterol Direct HDL Cholesterol Urine pH Urine WBC (Auto) Urine Creatinine Urine Total Protein Fluid Total Protein Vancomycin Trough Rheumatoid Factor Complement C4 Miscellaneous Test Crossmatch 09/12/16 09/12/16 09/13/16 16:51 23:28 04:00 WBC 45.0 H* RBC Hgb 9.4 L Hct MCV 75 L MCH 23 L MCHC RDW 19.0 H Plt Count 470 H Lymph % (Auto) [place] % (Auto) Lymph # [place] # Baso # Seg Neutrophils % Seg Neuts % (Manual) 89.0 H Lymphocytes % (Manual) 5.0 L Monocytes % (Manual) Eosinophils % (Manual) Basophils % (Manual) Nucleated RBC % Seg Neutrophils # Seg Neutrophils # Man 40.1 H Lymphocytes # (Manual) Monocytes # (Manual) Eosinophils # (Manual) PT INR Fibrinogen dRVVT Confirm Interp Factor V Activity POC ABG pH POC ABG pCO2 POC ABG pO2 ABG pO2 ABG HCO3 ABG Base Excess ABG Hemoglobin Oxyhemoglobin Sodium Potassium Chloride Carbon Dioxide BUN Creatinine Glucose POC Glucose 169 H 150 H Lactic Acid Calcium Phosphorus Magnesium Direct Bilirubin AST ALT Alkaline Phosphatase Lactate Dehydrogenase Troponin T C-Reactive Protein Total Protein Albumin Prealbumin Triglycerides Cholesterol LDL Cholesterol Direct HDL Cholesterol Urine pH Urine WBC (Auto) Urine Creatinine Urine Total Protein Fluid Total Protein Vancomycin Trough Rheumatoid Factor Complement C4 Miscellaneous Test Crossmatch 09/13/16 09/13/16 09/13/16 04:00 11:26 17:31 WBC RBC Hgb Hct MCV MCH MCHC RDW Plt Count Lymph % (Auto) [place] % (Auto) Lymph # [place] # Baso # Seg Neutrophils % Seg Neuts % (Manual) Lymphocytes % (Manual) Monocytes % (Manual) Eosinophils % (Manual) Basophils % (Manual) Nucleated RBC % Seg Neutrophils # Seg Neutrophils # Man Lymphocytes # (Manual) Monocytes # (Manual) Eosinophils # (Manual) PT INR Fibrinogen dRVVT Confirm Interp Factor V Activity POC ABG pH POC ABG pCO2 POC ABG pO2 ABG pO2 ABG HCO3 ABG Base Excess ABG Hemoglobin Oxyhemoglobin Sodium Potassium Chloride Carbon Dioxide 20 L BUN 116 H Creatinine 3.0 H Glucose 172 H POC Glucose 140 H 183 H Lactic Acid Calcium Phosphorus Magnesium Direct Bilirubin AST ALT Alkaline Phosphatase Lactate Dehydrogenase Troponin T C-Reactive Protein Total Protein 6.2 L Albumin 2.9 L Prealbumin Triglycerides Cholesterol LDL Cholesterol Direct HDL Cholesterol Urine pH Urine WBC (Auto) Urine Creatinine Urine Total Protein Fluid Total Protein Vancomycin Trough Rheumatoid Factor Complement C4 Miscellaneous Test Crossmatch 09/13/16 09/14/16 09/14/16 23:23 04:06 04:07 WBC 29.4 H RBC Hgb 8.9 L Hct 27.3 L MCV 75 L MCH 24 L MCHC RDW 19.1 H Plt Count Lymph % (Auto) [place] % (Auto) Lymph # [place] # Baso # Seg Neutrophils % Seg Neuts % (Manual) 84.0 H Lymphocytes % (Manual) 6.0 L Monocytes % (Manual) 9.0 H Eosinophils % (Manual) Basophils % (Manual) Nucleated RBC % Seg Neutrophils # Seg Neutrophils # Man 24.7 H Lymphocytes # (Manual) Monocytes # (Manual) 2.6 H Eosinophils # (Manual) PT INR Fibrinogen dRVVT Confirm Interp Factor V Activity POC ABG pH 7.342 L POC ABG pCO2 POC ABG pO2 116 H ABG pO2 ABG HCO3 ABG Base Excess ABG Hemoglobin Oxyhemoglobin Sodium Potassium Chloride Carbon Dioxide BUN Creatinine Glucose POC Glucose 154 H Lactic Acid Calcium Phosphorus Magnesium Direct Bilirubin AST ALT Alkaline Phosphatase Lactate Dehydrogenase Troponin T C-Reactive Protein Total Protein Albumin Prealbumin Triglycerides Cholesterol LDL Cholesterol Direct HDL Cholesterol Urine pH Urine WBC (Auto) Urine Creatinine Urine Total Protein Fluid Total Protein Vancomycin Trough Rheumatoid Factor Complement C4 Miscellaneous Test Crossmatch 09/14/16 09/14/16 09/14/16 04:07 05:29 12:19 WBC RBC Hgb Hct MCV MCH MCHC RDW Plt Count Lymph % (Auto) [place] % (Auto) Lymph # [place] # Baso # Seg Neutrophils % Seg Neuts % (Manual) Lymphocytes % (Manual) Monocytes % (Manual) Eosinophils % (Manual) Basophils % (Manual) Nucleated RBC % Seg Neutrophils # Seg Neutrophils # Man Lymphocytes # (Manual) Monocytes # (Manual) Eosinophils # (Manual) PT INR Fibrinogen dRVVT Confirm Interp Factor V Activity POC ABG pH POC ABG pCO2 POC ABG pO2 ABG pO2 ABG HCO3 ABG Base Excess ABG Hemoglobin Oxyhemoglobin Sodium 136 L Potassium Chloride Carbon Dioxide 18 L BUN 121 H Creatinine 2.8 H Glucose 214 H POC Glucose 239 H 181 H Lactic Acid Calcium Phosphorus Magnesium Direct Bilirubin AST ALT Alkaline Phosphatase Lactate Dehydrogenase Troponin T C-Reactive Protein Total Protein Albumin Prealbumin Triglycerides Cholesterol LDL Cholesterol Direct HDL Cholesterol Urine pH Urine WBC (Auto) Urine Creatinine Urine Total Protein Fluid Total Protein Vancomycin Trough Rheumatoid Factor Complement C4 Miscellaneous Test Crossmatch 09/14/16 09/14/16 09/15/16 18:12 23:37 05:00 WBC 26.1 H RBC 3.05 L Hgb 7.2 L Hct 22.9 L MCV 75 L MCH 24 L MCHC RDW 19.0 H Plt Count Lymph % (Auto) [place] % (Auto) Lymph # [place] # Baso # Seg Neutrophils % Seg Neuts % (Manual) Lymphocytes % (Manual) Monocytes % (Manual) Eosinophils % (Manual) Basophils % (Manual) Nucleated RBC % Seg Neutrophils # Seg Neutrophils # Man Lymphocytes # (Manual) Monocytes # (Manual) Eosinophils # (Manual) PT INR Fibrinogen dRVVT Confirm Interp Factor V Activity POC ABG pH POC ABG pCO2 POC ABG pO2 ABG pO2 ABG HCO3 ABG Base Excess ABG Hemoglobin Oxyhemoglobin Sodium Potassium Chloride Carbon Dioxide BUN Creatinine Glucose POC Glucose 266 H 154 H Lactic Acid Calcium Phosphorus Magnesium Direct Bilirubin AST ALT Alkaline Phosphatase Lactate Dehydrogenase Troponin T C-Reactive Protein Total Protein Albumin Prealbumin Triglycerides Cholesterol LDL Cholesterol Direct HDL Cholesterol Urine pH Urine WBC (Auto) Urine Creatinine Urine Total Protein Fluid Total Protein Vancomycin Trough Rheumatoid Factor Complement C4 Miscellaneous Test Crossmatch 09/15/16 09/15/16 09/15/16 05:00 05:17 12:45 WBC RBC Hgb Hct MCV MCH MCHC RDW Plt Count Lymph % (Auto) [place] % (Auto) Lymph # [place] # Baso # Seg Neutrophils % Seg Neuts % (Manual) Lymphocytes % (Manual) Monocytes % (Manual) Eosinophils % (Manual) Basophils % (Manual) Nucleated RBC % Seg Neutrophils # Seg Neutrophils # Man Lymphocytes # (Manual) Monocytes # (Manual) Eosinophils # (Manual) PT INR Fibrinogen dRVVT Confirm Interp Factor V Activity POC ABG pH POC ABG pCO2 POC ABG pO2 ABG pO2 ABG HCO3 ABG Base Excess ABG Hemoglobin Oxyhemoglobin Sodium Potassium 5.2 H Chloride Carbon Dioxide 18 L BUN 139 H Creatinine 3.7 H Glucose 227 H POC Glucose 226 H 244 H Lactic Acid Calcium 8.3 L Phosphorus Magnesium Direct Bilirubin AST ALT Alkaline Phosphatase Lactate Dehydrogenase Troponin T C-Reactive Protein Total Protein Albumin Prealbumin Triglycerides Cholesterol LDL Cholesterol Direct HDL Cholesterol Urine pH Urine WBC (Auto) Urine Creatinine Urine Total Protein Fluid Total Protein Vancomycin Trough Rheumatoid Factor Complement C4 Miscellaneous Test Crossmatch 09/15/16 09/15/16 09/15/16 14:32 17:33 23:35 WBC RBC Hgb Hct MCV MCH MCHC RDW Plt Count Lymph % (Auto) [place] % (Auto) Lymph # [place] # Baso # Seg Neutrophils % Seg Neuts % (Manual) Lymphocytes % (Manual) Monocytes % (Manual) Eosinophils % (Manual) Basophils % (Manual) Nucleated RBC % Seg Neutrophils # Seg Neutrophils # Man Lymphocytes # (Manual) Monocytes # (Manual) Eosinophils # (Manual) PT INR Fibrinogen dRVVT Confirm Interp Factor V Activity POC ABG pH POC ABG pCO2 27.7 L POC ABG pO2 120 H ABG pO2 ABG HCO3 ABG Base Excess ABG Hemoglobin Oxyhemoglobin Sodium Potassium Chloride Carbon Dioxide BUN Creatinine Glucose POC Glucose 232 H 167 H Lactic Acid Calcium Phosphorus Magnesium Direct Bilirubin AST ALT Alkaline Phosphatase Lactate Dehydrogenase Troponin T C-Reactive Protein Total Protein Albumin Prealbumin Triglycerides Cholesterol LDL Cholesterol Direct HDL Cholesterol Urine pH Urine WBC (Auto) Urine Creatinine Urine Total Protein Fluid Total Protein Vancomycin Trough Rheumatoid Factor Complement C4 Miscellaneous Test Crossmatch 09/16/16 09/16/16 09/16/16 03:58 10:27 10:27 WBC 19.0 H RBC 2.77 L Hgb 6.5 L Hct 20.9 L MCV 76 L MCH 23 L MCHC RDW 19.3 H Plt Count Lymph % (Auto) 11.0 L [place] % (Auto) Lymph # [place] # 1.1 H Baso # Seg Neutrophils % 82.5 H Seg Neuts % (Manual) Lymphocytes % (Manual) Monocytes % (Manual) Eosinophils % (Manual) Basophils % (Manual) Nucleated RBC % Seg Neutrophils # 15.7 H Seg Neutrophils # Man Lymphocytes # (Manual) Monocytes # (Manual) Eosinophils # (Manual) PT INR Fibrinogen dRVVT Confirm Interp Factor V Activity POC ABG pH POC ABG pCO2 POC ABG pO2 ABG pO2 ABG HCO3 ABG Base Excess ABG Hemoglobin Oxyhemoglobin Sodium Potassium Chloride 109.3 H Carbon Dioxide 18 L BUN 139 H Creatinine 4.1 H Glucose 144 H POC Glucose 146 H Lactic Acid Calcium 8.1 L Phosphorus Magnesium Direct Bilirubin AST ALT Alkaline Phosphatase Lactate Dehydrogenase Troponin T C-Reactive Protein Total Protein Albumin Prealbumin Triglycerides Cholesterol LDL Cholesterol Direct HDL Cholesterol Urine pH Urine WBC (Auto) Urine Creatinine Urine Total Protein Fluid Total Protein Vancomycin Trough Rheumatoid Factor Complement C4 Miscellaneous Test Crossmatch 09/16/16 09/16/16 09/16/16 12:04 12:10 13:55 WBC RBC Hgb Hct MCV MCH MCHC RDW Plt Count Lymph % (Auto) [place] % (Auto) Lymph # [place] # Baso # Seg Neutrophils % Seg Neuts % (Manual) Lymphocytes % (Manual) Monocytes % (Manual) Eosinophils % (Manual) Basophils % (Manual) Nucleated RBC % Seg Neutrophils # Seg Neutrophils # Man Lymphocytes # (Manual) Monocytes # (Manual) Eosinophils # (Manual) PT INR Fibrinogen dRVVT Confirm Interp Factor V Activity POC ABG pH POC ABG pCO2 32.9 L POC ABG pO2 ABG pO2 ABG HCO3 ABG Base Excess ABG Hemoglobin Oxyhemoglobin Sodium Potassium Chloride Carbon Dioxide BUN Creatinine Glucose POC Glucose 185 H Lactic Acid Calcium Phosphorus Magnesium Direct Bilirubin AST ALT Alkaline Phosphatase Lactate Dehydrogenase Troponin T C-Reactive Protein Total Protein Albumin Prealbumin Triglycerides Cholesterol LDL Cholesterol Direct HDL Cholesterol Urine pH Urine WBC (Auto) Urine Creatinine Urine Total Protein Fluid Total Protein Vancomycin Trough Rheumatoid Factor Complement C4 Miscellaneous Test Crossmatch See Detail 09/16/16 09/16/16 09/16/16 17:55 19:19 23:48 WBC RBC Hgb Hct MCV MCH MCHC RDW Plt Count Lymph % (Auto) [place] % (Auto) Lymph # [place] # Baso # Seg Neutrophils % Seg Neuts % (Manual) Lymphocytes % (Manual) Monocytes % (Manual) Eosinophils % (Manual) Basophils % (Manual) Nucleated RBC % Seg Neutrophils # Seg Neutrophils # Man Lymphocytes # (Manual) Monocytes # (Manual) Eosinophils # (Manual) PT INR Fibrinogen dRVVT Confirm Interp Factor V Activity POC ABG pH POC ABG pCO2 POC ABG pO2 ABG pO2 ABG HCO3 ABG Base Excess ABG Hemoglobin Oxyhemoglobin Sodium Potassium Chloride Carbon Dioxide BUN Creatinine Glucose POC Glucose 222 H 107 H Lactic Acid Calcium Phosphorus Magnesium Direct Bilirubin AST ALT Alkaline Phosphatase Lactate Dehydrogenase Troponin T C-Reactive Protein Total Protein Albumin Prealbumin Triglycerides Cholesterol LDL Cholesterol Direct HDL Cholesterol Urine pH Urine WBC (Auto) Urine Creatinine 47.4 H Urine Total Protein 16 H Fluid Total Protein Vancomycin Trough Rheumatoid Factor Complement C4 Miscellaneous Test Crossmatch 09/17/16 09/17/16 09/17/16 03:45 03:45 04:55 WBC 19.6 H RBC 3.41 L Hgb 8.5 L Hct 26.7 L MCV 78 L MCH 25 L MCHC RDW 19.9 H Plt Count Lymph % (Auto) 9.3 L [place] % (Auto) Lymph # [place] # 1.2 H Baso # Seg Neutrophils % 83.9 H Seg Neuts % (Manual) Lymphocytes % (Manual) Monocytes % (Manual) Eosinophils % (Manual) Basophils % (Manual) Nucleated RBC % Seg Neutrophils # 16.4 H Seg Neutrophils # Man Lymphocytes # (Manual) Monocytes # (Manual) Eosinophils # (Manual) PT INR Fibrinogen dRVVT Confirm Interp Factor V Activity POC ABG pH POC ABG pCO2 POC ABG pO2 ABG pO2 ABG HCO3 ABG Base Excess ABG Hemoglobin Oxyhemoglobin Sodium 146 H Potassium 5.1 H Chloride 110.9 H Carbon Dioxide 16 L BUN 146 H Creatinine 4.0 H Glucose 108 H POC Glucose 133 H Lactic Acid Calcium Phosphorus Magnesium 3.00 H Direct Bilirubin AST ALT Alkaline Phosphatase Lactate Dehydrogenase Troponin T C-Reactive Protein Total Protein Albumin Prealbumin Triglycerides Cholesterol LDL Cholesterol Direct HDL Cholesterol Urine pH Urine WBC (Auto) Urine Creatinine Urine Total Protein Fluid Total Protein Vancomycin Trough Rheumatoid Factor Complement C4 Miscellaneous Test Crossmatch 09/17/16 09/17/16 09/17/16 11:15 17:33 23:47 WBC RBC Hgb Hct MCV MCH MCHC RDW Plt Count Lymph % (Auto) [place] % (Auto) Lymph # [place] # Baso # Seg Neutrophils % Seg Neuts % (Manual) Lymphocytes % (Manual) Monocytes % (Manual) Eosinophils % (Manual) Basophils % (Manual) Nucleated RBC % Seg Neutrophils # Seg Neutrophils # Man Lymphocytes # (Manual) Monocytes # (Manual) Eosinophils # (Manual) PT INR Fibrinogen dRVVT Confirm Interp Factor V Activity POC ABG pH POC ABG pCO2 POC ABG pO2 ABG pO2 ABG HCO3 ABG Base Excess ABG Hemoglobin Oxyhemoglobin Sodium Potassium Chloride Carbon Dioxide BUN Creatinine Glucose POC Glucose 176 H 246 H 148 H Lactic Acid Calcium Phosphorus Magnesium Direct Bilirubin AST ALT Alkaline Phosphatase Lactate Dehydrogenase Troponin T C-Reactive Protein Total Protein Albumin Prealbumin Triglycerides Cholesterol LDL Cholesterol Direct HDL Cholesterol Urine pH Urine WBC (Auto) Urine Creatinine Urine Total Protein Fluid Total Protein Vancomycin Trough Rheumatoid Factor Complement C4 Miscellaneous Test Crossmatch 09/18/16 09/18/16 09/18/16 05:33 08:31 08:31 WBC 18.0 H RBC 3.17 L Hgb 9.0 L Hct 25.7 L MCV MCH MCHC 35 H RDW 20.4 H Plt Count Lymph % (Auto) [place] % (Auto) Lymph # [place] # Baso # Seg Neutrophils % Seg Neuts % (Manual) Lymphocytes % (Manual) Monocytes % (Manual) Eosinophils % (Manual) Basophils % (Manual) Nucleated RBC % Seg Neutrophils # Seg Neutrophils # Man Lymphocytes # (Manual) Monocytes # (Manual) Eosinophils # (Manual) PT INR Fibrinogen dRVVT Confirm Interp Factor V Activity POC ABG pH POC ABG pCO2 POC ABG pO2 ABG pO2 ABG HCO3 ABG Base Excess ABG Hemoglobin Oxyhemoglobin Sodium Potassium Chloride Carbon Dioxide 15 L BUN 124 H Creatinine 3.8 H Glucose POC Glucose 120 H Lactic Acid Calcium 8.1 L Phosphorus Magnesium Direct Bilirubin AST ALT Alkaline Phosphatase Lactate Dehydrogenase Troponin T C-Reactive Protein Total Protein Albumin Prealbumin Triglycerides Cholesterol LDL Cholesterol Direct HDL Cholesterol Urine pH Urine WBC (Auto) Urine Creatinine Urine Total Protein Fluid Total Protein Vancomycin Trough Rheumatoid Factor Complement C4 Miscellaneous Test Crossmatch 09/18/16 09/18/16 09/18/16 12:03 15:34 17:50 WBC RBC Hgb Hct MCV MCH MCHC RDW Plt Count Lymph % (Auto) [place] % (Auto) Lymph # [place] # Baso # Seg Neutrophils % Seg Neuts % (Manual) Lymphocytes % (Manual) Monocytes % (Manual) Eosinophils % (Manual) Basophils % (Manual) Nucleated RBC % Seg Neutrophils # Seg Neutrophils # Man Lymphocytes # (Manual) Monocytes # (Manual) Eosinophils # (Manual) PT INR Fibrinogen dRVVT Confirm Interp Factor V Activity POC ABG pH POC ABG pCO2 25.7 L POC ABG pO2 66 L ABG pO2 ABG HCO3 ABG Base Excess ABG Hemoglobin Oxyhemoglobin Sodium Potassium Chloride Carbon Dioxide BUN Creatinine Glucose POC Glucose 156 H 220 H Lactic Acid Calcium Phosphorus Magnesium Direct Bilirubin AST ALT Alkaline Phosphatase Lactate Dehydrogenase Troponin T C-Reactive Protein Total Protein Albumin Prealbumin Triglycerides Cholesterol LDL Cholesterol Direct HDL Cholesterol Urine pH Urine WBC (Auto) Urine Creatinine Urine Total Protein Fluid Total Protein Vancomycin Trough Rheumatoid Factor Complement C4 Miscellaneous Test Crossmatch 09/19/16 09/19/16 09/19/16 06:21 09:50 09:50 WBC 17.1 H RBC 3.49 L Hgb 9.0 L Hct 28.1 L MCV MCH 26 L MCHC RDW 20.8 H Plt Count Lymph % (Auto) 11.5 L [place] % (Auto) 7.5 H Lymph # [place] # 1.3 H Baso # Seg Neutrophils % 79.8 H Seg Neuts % (Manual) Lymphocytes % (Manual) Monocytes % (Manual) Eosinophils % (Manual) Basophils % (Manual) Nucleated RBC % Seg Neutrophils # 13.7 H Seg Neutrophils # Man Lymphocytes # (Manual) Monocytes # (Manual) Eosinophils # (Manual) PT INR Fibrinogen dRVVT Confirm Interp Factor V Activity POC ABG pH POC ABG pCO2 POC ABG pO2 ABG pO2 ABG HCO3 ABG Base Excess ABG Hemoglobin Oxyhemoglobin Sodium Potassium Chloride 108.6 H Carbon Dioxide 15 L BUN 125 H Creatinine 4.1 H Glucose 124 H POC Glucose 119 H Lactic Acid Calcium Phosphorus Magnesium Direct Bilirubin AST ALT Alkaline Phosphatase Lactate Dehydrogenase Troponin T C-Reactive Protein Total Protein Albumin Prealbumin Triglycerides Cholesterol LDL Cholesterol Direct HDL Cholesterol Urine pH Urine WBC (Auto) Urine Creatinine Urine Total Protein Fluid Total Protein Vancomycin Trough Rheumatoid Factor Complement C4 Miscellaneous Test Crossmatch 09/19/16 09/19/16 09/19/16 11:25 17:53 23:36 WBC RBC Hgb Hct MCV MCH MCHC RDW Plt Count Lymph % (Auto) [place] % (Auto) Lymph # [place] # Baso # Seg Neutrophils % Seg Neuts % (Manual) Lymphocytes % (Manual) Monocytes % (Manual) Eosinophils % (Manual) Basophils % (Manual) Nucleated RBC % Seg Neutrophils # Seg Neutrophils # Man Lymphocytes # (Manual) Monocytes # (Manual) Eosinophils # (Manual) PT INR Fibrinogen dRVVT Confirm Interp Factor V Activity POC ABG pH POC ABG pCO2 POC ABG pO2 ABG pO2 ABG HCO3 ABG Base Excess ABG Hemoglobin Oxyhemoglobin Sodium Potassium Chloride Carbon Dioxide BUN Creatinine Glucose POC Glucose 160 H 245 H 121 H Lactic Acid Calcium Phosphorus Magnesium Direct Bilirubin AST ALT Alkaline Phosphatase Lactate Dehydrogenase Troponin T C-Reactive Protein Total Protein Albumin Prealbumin Triglycerides Cholesterol LDL Cholesterol Direct HDL Cholesterol Urine pH Urine WBC (Auto) Urine Creatinine Urine Total Protein Fluid Total Protein Vancomycin Trough Rheumatoid Factor Complement C4 Miscellaneous Test Crossmatch 09/20/16 09/20/16 09/20/16 04:10 04:10 04:10 WBC 17.0 H RBC 3.21 L Hgb 8.2 L Hct 25.5 L MCV MCH 26 L MCHC RDW 20.9 H Plt Count Lymph % (Auto) [place] % (Auto) Lymph # [place] # Baso # Seg Neutrophils % Seg Neuts % (Manual) Lymphocytes % (Manual) Monocytes % (Manual) Eosinophils % (Manual) Basophils % (Manual) Nucleated RBC % Seg Neutrophils # Seg Neutrophils # Man Lymphocytes # (Manual) Monocytes # (Manual) Eosinophils # (Manual) PT INR Fibrinogen dRVVT Confirm Interp Factor V Activity POC ABG pH POC ABG pCO2 POC ABG pO2 ABG pO2 ABG HCO3 ABG Base Excess ABG Hemoglobin Oxyhemoglobin Sodium Potassium Chloride 111.0 H Carbon Dioxide 16 L BUN 129 H Creatinine 3.7 H Glucose 115 H POC Glucose Lactic Acid Calcium 8.2 L Phosphorus Magnesium Direct Bilirubin AST ALT Alkaline Phosphatase Lactate Dehydrogenase Troponin T C-Reactive Protein Total Protein Albumin Prealbumin Triglycerides 243 H Cholesterol LDL Cholesterol Direct HDL Cholesterol Urine pH Urine WBC (Auto) Urine Creatinine Urine Total Protein Fluid Total Protein Vancomycin Trough Rheumatoid Factor Complement C4 Miscellaneous Test Crossmatch 09/20/16 09/20/16 09/20/16 05:40 11:52 16:50 WBC RBC Hgb Hct MCV MCH MCHC RDW Plt Count Lymph % (Auto) [place] % (Auto) Lymph # [place] # Baso # Seg Neutrophils % Seg Neuts % (Manual) Lymphocytes % (Manual) Monocytes % (Manual) Eosinophils % (Manual) Basophils % (Manual) Nucleated RBC % Seg Neutrophils # Seg Neutrophils # Man Lymphocytes # (Manual) Monocytes # (Manual) Eosinophils # (Manual) PT INR Fibrinogen dRVVT Confirm Interp Factor V Activity POC ABG pH POC ABG pCO2 POC ABG pO2 ABG pO2 ABG HCO3 ABG Base Excess ABG Hemoglobin Oxyhemoglobin Sodium Potassium Chloride Carbon Dioxide BUN Creatinine Glucose POC Glucose 131 H 183 H 236 H Lactic Acid Calcium Phosphorus Magnesium Direct Bilirubin AST ALT Alkaline Phosphatase Lactate Dehydrogenase Troponin T C-Reactive Protein Total Protein Albumin Prealbumin Triglycerides Cholesterol LDL Cholesterol Direct HDL Cholesterol Urine pH Urine WBC (Auto) Urine Creatinine Urine Total Protein Fluid Total Protein Vancomycin Trough Rheumatoid Factor Complement C4 Miscellaneous Test Crossmatch 09/20/16 09/21/16 09/21/16 23:51 03:30 04:44 WBC RBC Hgb Hct MCV MCH MCHC RDW Plt Count Lymph % (Auto) [place] % (Auto) Lymph # [place] # Baso # Seg Neutrophils % Seg Neuts % (Manual) Lymphocytes % (Manual) Monocytes % (Manual) Eosinophils % (Manual) Basophils % (Manual) Nucleated RBC % Seg Neutrophils # Seg Neutrophils # Man Lymphocytes # (Manual) Monocytes # (Manual) Eosinophils # (Manual) PT INR Fibrinogen dRVVT Confirm Interp Factor V Activity POC ABG pH POC ABG pCO2 POC ABG pO2 ABG pO2 ABG HCO3 ABG Base Excess ABG Hemoglobin Oxyhemoglobin Sodium Potassium Chloride Carbon Dioxide BUN Creatinine Glucose POC Glucose 114 H 141 H Lactic Acid Calcium Phosphorus Magnesium 2.70 H Direct Bilirubin AST ALT Alkaline Phosphatase Lactate Dehydrogenase Troponin T C-Reactive Protein Total Protein Albumin Prealbumin Triglycerides Cholesterol LDL Cholesterol Direct HDL Cholesterol Urine pH Urine WBC (Auto) Urine Creatinine Urine Total Protein Fluid Total Protein Vancomycin Trough Rheumatoid Factor Complement C4 Miscellaneous Test Crossmatch 09/21/16 09/21/16 09/21/16 07:45 07:45 10:01 WBC 13.8 H RBC 2.94 L Hgb 7.5 L Hct 23.5 L MCV MCH 26 L MCHC RDW 21.2 H Plt Count Lymph % (Auto) 6.9 L [place] % (Auto) 9.4 H Lymph # 0.9 L [place] # 1.3 H Baso # Seg Neutrophils % 83.2 H Seg Neuts % (Manual) Lymphocytes % (Manual) Monocytes % (Manual) Eosinophils % (Manual) Basophils % (Manual) Nucleated RBC % Seg Neutrophils # 11.5 H Seg Neutrophils # Man Lymphocytes # (Manual) Monocytes # (Manual) Eosinophils # (Manual) PT INR Fibrinogen dRVVT Confirm Interp Factor V Activity POC ABG pH 7.308 L POC ABG pCO2 31.9 L POC ABG pO2 148 H ABG pO2 ABG HCO3 ABG Base Excess ABG Hemoglobin Oxyhemoglobin Sodium 147 H Potassium Chloride 114.2 H Carbon Dioxide 15 L BUN 120 H Creatinine 3.9 H Glucose 156 H POC Glucose Lactic Acid Calcium 8.2 L Phosphorus Magnesium Direct Bilirubin AST ALT Alkaline Phosphatase Lactate Dehydrogenase Troponin T C-Reactive Protein Total Protein Albumin Prealbumin Triglycerides Cholesterol LDL Cholesterol Direct HDL Cholesterol Urine pH Urine WBC (Auto) Urine Creatinine Urine Total Protein Fluid Total Protein Vancomycin Trough Rheumatoid Factor Complement C4 Miscellaneous Test Crossmatch 09/21/16 09/21/16 09/21/16 12:00 12:03 13:00 WBC RBC Hgb Hct MCV MCH MCHC RDW Plt Count Lymph % (Auto) [place] % (Auto) Lymph # [place] # Baso # Seg Neutrophils % Seg Neuts % (Manual) Lymphocytes % (Manual) Monocytes % (Manual) Eosinophils % (Manual) Basophils % (Manual) Nucleated RBC % Seg Neutrophils # Seg Neutrophils # Man Lymphocytes # (Manual) Monocytes # (Manual) Eosinophils # (Manual) PT INR Fibrinogen dRVVT Confirm Interp Factor V Activity POC ABG pH POC ABG pCO2 POC ABG pO2 ABG pO2 ABG HCO3 ABG Base Excess ABG Hemoglobin Oxyhemoglobin Sodium Potassium Chloride Carbon Dioxide BUN Creatinine Glucose POC Glucose 163 H Lactic Acid Calcium Phosphorus Magnesium Direct Bilirubin AST ALT Alkaline Phosphatase Lactate Dehydrogenase Troponin T C-Reactive Protein Total Protein Albumin Prealbumin Triglycerides Cholesterol LDL Cholesterol Direct HDL Cholesterol Urine pH Urine WBC (Auto) Urine Creatinine 54.8 H Urine Total Protein Fluid Total Protein Vancomycin Trough 2.3 L Rheumatoid Factor Complement C4 Miscellaneous Test Crossmatch 09/21/16 09/21/16 09/22/16 16:51 23:17 06:27 WBC RBC Hgb Hct MCV MCH MCHC RDW Plt Count Lymph % (Auto) [place] % (Auto) Lymph # [place] # Baso # Seg Neutrophils % Seg Neuts % (Manual) Lymphocytes % (Manual) Monocytes % (Manual) Eosinophils % (Manual) Basophils % (Manual) Nucleated RBC % Seg Neutrophils # Seg Neutrophils # Man Lymphocytes # (Manual) Monocytes # (Manual) Eosinophils # (Manual) PT INR Fibrinogen dRVVT Confirm Interp Factor V Activity POC ABG pH POC ABG pCO2 POC ABG pO2 ABG pO2 ABG HCO3 ABG Base Excess ABG Hemoglobin Oxyhemoglobin Sodium Potassium Chloride Carbon Dioxide BUN Creatinine Glucose POC Glucose 206 H 114 H 115 H Lactic Acid Calcium Phosphorus Magnesium Direct Bilirubin AST ALT Alkaline Phosphatase Lactate Dehydrogenase Troponin T C-Reactive Protein Total Protein Albumin Prealbumin Triglycerides Cholesterol LDL Cholesterol Direct HDL Cholesterol Urine pH Urine WBC (Auto) Urine Creatinine Urine Total Protein Fluid Total Protein Vancomycin Trough Rheumatoid Factor Complement C4 Miscellaneous Test Crossmatch 09/22/16 09/22/16 09/22/16 07:50 07:50 12:00 WBC 17.8 H RBC 3.04 L Hgb 8.0 L Hct 24.7 L MCV MCH 26 L MCHC RDW 21.6 H Plt Count Lymph % (Auto) [place] % (Auto) Lymph # [place] # Baso # Seg Neutrophils % Seg Neuts % (Manual) Lymphocytes % (Manual) Monocytes % (Manual) Eosinophils % (Manual) Basophils % (Manual) Nucleated RBC % Seg Neutrophils # Seg Neutrophils # Man Lymphocytes # (Manual) Monocytes # (Manual) Eosinophils # (Manual) PT INR Fibrinogen dRVVT Confirm Interp Factor V Activity POC ABG pH POC ABG pCO2 POC ABG pO2 ABG pO2 ABG HCO3 ABG Base Excess ABG Hemoglobin Oxyhemoglobin Sodium 150 H Potassium Chloride 118.2 H Carbon Dioxide 14 L BUN 111 H Creatinine 3.7 H Glucose 157 H POC Glucose 183 H Lactic Acid Calcium Phosphorus Magnesium Direct Bilirubin AST ALT Alkaline Phosphatase Lactate Dehydrogenase Troponin T C-Reactive Protein Total Protein Albumin Prealbumin Triglycerides Cholesterol LDL Cholesterol Direct HDL Cholesterol Urine pH Urine WBC (Auto) Urine Creatinine Urine Total Protein Fluid Total Protein Vancomycin Trough Rheumatoid Factor Complement C4 Miscellaneous Test Crossmatch 09/22/16 09/22/16 09/23/16 17:29 23:10 05:00 WBC 19.2 H RBC 3.13 L Hgb 8.0 L Hct 25.2 L MCV MCH 26 L MCHC RDW 22.1 H Plt Count Lymph % (Auto) [place] % (Auto) Lymph # [place] # Baso # Seg Neutrophils % Seg Neuts % (Manual) 92.0 H Lymphocytes % (Manual) 3.0 L Monocytes % (Manual) Eosinophils % (Manual) Basophils % (Manual) Nucleated RBC % Seg Neutrophils # Seg Neutrophils # Man 17.7 H Lymphocytes # (Manual) 0.6 L Monocytes # (Manual) Eosinophils # (Manual) PT INR Fibrinogen dRVVT Confirm Interp Factor V Activity POC ABG pH POC ABG pCO2 POC ABG pO2 ABG pO2 ABG HCO3 ABG Base Excess ABG Hemoglobin Oxyhemoglobin Sodium Potassium Chloride Carbon Dioxide BUN Creatinine Glucose POC Glucose 197 H 169 H Lactic Acid Calcium Phosphorus Magnesium Direct Bilirubin AST ALT Alkaline Phosphatase Lactate Dehydrogenase Troponin T C-Reactive Protein Total Protein Albumin Prealbumin Triglycerides Cholesterol LDL Cholesterol Direct HDL Cholesterol Urine pH Urine WBC (Auto) Urine Creatinine Urine Total Protein Fluid Total Protein Vancomycin Trough Rheumatoid Factor Complement C4 Miscellaneous Test Crossmatch 09/23/16 09/23/16 09/23/16 05:00 05:00 05:10 WBC RBC Hgb Hct MCV MCH MCHC RDW Plt Count Lymph % (Auto) [place] % (Auto) Lymph # [place] # Baso # Seg Neutrophils % Seg Neuts % (Manual) Lymphocytes % (Manual) Monocytes % (Manual) Eosinophils % (Manual) Basophils % (Manual) Nucleated RBC % Seg Neutrophils # Seg Neutrophils # Man Lymphocytes # (Manual) Monocytes # (Manual) Eosinophils # (Manual) PT INR Fibrinogen dRVVT Confirm Interp Factor V Activity POC ABG pH POC ABG pCO2 POC ABG pO2 ABG pO2 ABG HCO3 ABG Base Excess ABG Hemoglobin Oxyhemoglobin Sodium 147 H Potassium 3.2 L Chloride 115.7 H Carbon Dioxide 13 L BUN 111 H Creatinine 3.8 H Glucose 194 H POC Glucose 188 H Lactic Acid Calcium 7.3 L D Phosphorus Magnesium Direct Bilirubin AST ALT Alkaline Phosphatase Lactate Dehydrogenase Troponin T C-Reactive Protein 3.20 H Total Protein Albumin Prealbumin Triglycerides Cholesterol LDL Cholesterol Direct HDL Cholesterol Urine pH Urine WBC (Auto) Urine Creatinine Urine Total Protein Fluid Total Protein Vancomycin Trough Rheumatoid Factor Complement C4 Miscellaneous Test Crossmatch 09/23/16 09/23/16 09/23/16 11:37 12:29 18:01 WBC RBC Hgb Hct MCV MCH MCHC RDW Plt Count Lymph % (Auto) [place] % (Auto) Lymph # [place] # Baso # Seg Neutrophils % Seg Neuts % (Manual) Lymphocytes % (Manual) Monocytes % (Manual) Eosinophils % (Manual) Basophils % (Manual) Nucleated RBC % Seg Neutrophils # Seg Neutrophils # Man Lymphocytes # (Manual) Monocytes # (Manual) Eosinophils # (Manual) PT INR Fibrinogen dRVVT Confirm Interp Factor V Activity POC ABG pH POC ABG pCO2 18.9 L POC ABG pO2 143 H ABG pO2 ABG HCO3 ABG Base Excess ABG Hemoglobin Oxyhemoglobin Sodium Potassium Chloride Carbon Dioxide BUN Creatinine Glucose POC Glucose 153 H 108 H Lactic Acid Calcium Phosphorus Magnesium Direct Bilirubin AST ALT Alkaline Phosphatase Lactate Dehydrogenase Troponin T C-Reactive Protein Total Protein Albumin Prealbumin Triglycerides Cholesterol LDL Cholesterol Direct HDL Cholesterol Urine pH Urine WBC (Auto) Urine Creatinine Urine Total Protein Fluid Total Protein Vancomycin Trough Rheumatoid Factor Complement C4 Miscellaneous Test Crossmatch 09/23/16 09/23/16 09/24/16 21:19 23:43 05:16 WBC RBC Hgb Hct MCV MCH MCHC RDW Plt Count Lymph % (Auto) [place] % (Auto) Lymph # [place] # Baso # Seg Neutrophils % Seg Neuts % (Manual) Lymphocytes % (Manual) Monocytes % (Manual) Eosinophils % (Manual) Basophils % (Manual) Nucleated RBC % Seg Neutrophils # Seg Neutrophils # Man Lymphocytes # (Manual) Monocytes # (Manual) Eosinophils # (Manual) PT INR Fibrinogen dRVVT Confirm Interp Factor V Activity POC ABG pH POC ABG pCO2 17.3 L POC ABG pO2 112 H ABG pO2 ABG HCO3 ABG Base Excess ABG Hemoglobin Oxyhemoglobin Sodium Potassium Chloride Carbon Dioxide BUN Creatinine Glucose POC Glucose 143 H 164 H Lactic Acid Calcium Phosphorus Magnesium Direct Bilirubin AST ALT Alkaline Phosphatase Lactate Dehydrogenase Troponin T C-Reactive Protein Total Protein Albumin Prealbumin Triglycerides Cholesterol LDL Cholesterol Direct HDL Cholesterol Urine pH Urine WBC (Auto) Urine Creatinine Urine Total Protein Fluid Total Protein Vancomycin Trough Rheumatoid Factor Complement C4 Miscellaneous Test Crossmatch 09/24/16 09/24/16 09/24/16 05:21 11:58 17:06 WBC RBC Hgb Hct MCV MCH MCHC RDW Plt Count Lymph % (Auto) [place] % (Auto) Lymph # [place] # Baso # Seg Neutrophils % Seg Neuts % (Manual) Lymphocytes % (Manual) Monocytes % (Manual) Eosinophils % (Manual) Basophils % (Manual) Nucleated RBC % Seg Neutrophils # Seg Neutrophils # Man Lymphocytes # (Manual) Monocytes # (Manual) Eosinophils # (Manual) PT INR Fibrinogen dRVVT Confirm Interp Factor V Activity POC ABG pH POC ABG pCO2 POC ABG pO2 ABG pO2 ABG HCO3 ABG Base Excess ABG Hemoglobin Oxyhemoglobin Sodium Potassium Chloride Carbon Dioxide 10 L BUN 103 H Creatinine 4.3 H Glucose 163 H POC Glucose 173 H 167 H Lactic Acid Calcium 6.5 L Phosphorus Magnesium Direct Bilirubin AST ALT Alkaline Phosphatase Lactate Dehydrogenase Troponin T C-Reactive Protein Total Protein Albumin Prealbumin Triglycerides Cholesterol LDL Cholesterol Direct HDL Cholesterol Urine pH Urine WBC (Auto) Urine Creatinine Urine Total Protein Fluid Total Protein Vancomycin Trough Rheumatoid Factor Complement C4 Miscellaneous Test Crossmatch 09/24/16 09/24/16 09/24/16 20:15 21:02 23:48 WBC RBC Hgb Hct MCV MCH MCHC RDW Plt Count Lymph % (Auto) [place] % (Auto) Lymph # [place] # Baso # Seg Neutrophils % Seg Neuts % (Manual) Lymphocytes % (Manual) Monocytes % (Manual) Eosinophils % (Manual) Basophils % (Manual) Nucleated RBC % Seg Neutrophils # Seg Neutrophils # Man Lymphocytes # (Manual) Monocytes # (Manual) Eosinophils # (Manual) PT INR Fibrinogen dRVVT Confirm Interp Factor V Activity POC ABG pH 7.288 L POC ABG pCO2 30.2 L 21.5 L POC ABG pO2 32 L 39 L ABG pO2 ABG HCO3 ABG Base Excess ABG Hemoglobin Oxyhemoglobin Sodium Potassium Chloride Carbon Dioxide BUN Creatinine Glucose POC Glucose 109 H Lactic Acid Calcium Phosphorus Magnesium Direct Bilirubin AST ALT Alkaline Phosphatase Lactate Dehydrogenase Troponin T C-Reactive Protein Total Protein Albumin Prealbumin Triglycerides Cholesterol LDL Cholesterol Direct HDL Cholesterol Urine pH Urine WBC (Auto) Urine Creatinine Urine Total Protein Fluid Total Protein Vancomycin Trough Rheumatoid Factor Complement C4 Miscellaneous Test Crossmatch 09/25/16 09/25/16 09/25/16 04:20 04:20 04:20 WBC RBC 2.58 L Hgb 7.0 L Hct 21.0 L MCV MCH 27 L MCHC RDW 23.8 H Plt Count Lymph % (Auto) [place] % (Auto) Lymph # [place] # Baso # Seg Neutrophils % Seg Neuts % (Manual) Lymphocytes % (Manual) 12.0 L Monocytes % (Manual) Eosinophils % (Manual) 7.0 H Basophils % (Manual) 2.0 H Nucleated RBC % Seg Neutrophils # Seg Neutrophils # Man Lymphocytes # (Manual) 0.9 L Monocytes # (Manual) Eosinophils # (Manual) 0.5 H PT INR Fibrinogen dRVVT Confirm Interp Factor V Activity POC ABG pH POC ABG pCO2 POC ABG pO2 ABG pO2 ABG HCO3 ABG Base Excess ABG Hemoglobin Oxyhemoglobin Sodium Potassium Chloride Carbon Dioxide 15 L BUN 72 H Creatinine 3.8 H Glucose POC Glucose Lactic Acid Calcium 6.0 L Phosphorus 4.60 H Magnesium 1.60 L Direct Bilirubin AST ALT Alkaline Phosphatase Lactate Dehydrogenase Troponin T C-Reactive Protein Total Protein Albumin Prealbumin Triglycerides Cholesterol LDL Cholesterol Direct HDL Cholesterol Urine pH Urine WBC (Auto) Urine Creatinine Urine Total Protein Fluid Total Protein Vancomycin Trough Rheumatoid Factor Complement C4 Miscellaneous Test Crossmatch 09/25/16 09/25/16 09/25/16 04:57 08:02 10:30 WBC RBC Hgb Hct MCV MCH MCHC RDW Plt Count Lymph % (Auto) [place] % (Auto) Lymph # [place] # Baso # Seg Neutrophils % Seg Neuts % (Manual) Lymphocytes % (Manual) Monocytes % (Manual) Eosinophils % (Manual) Basophils % (Manual) Nucleated RBC % Seg Neutrophils # Seg Neutrophils # Man Lymphocytes # (Manual) Monocytes # (Manual) Eosinophils # (Manual) PT INR Fibrinogen dRVVT Confirm Interp Factor V Activity POC ABG pH POC ABG pCO2 24.7 L POC ABG pO2 152 H ABG pO2 ABG HCO3 ABG Base Excess ABG Hemoglobin Oxyhemoglobin Sodium Potassium Chloride Carbon Dioxide BUN Creatinine Glucose POC Glucose 113 H Lactic Acid Calcium Phosphorus Magnesium Direct Bilirubin AST ALT Alkaline Phosphatase Lactate Dehydrogenase Troponin T C-Reactive Protein Total Protein Albumin Prealbumin Triglycerides Cholesterol LDL Cholesterol Direct HDL Cholesterol Urine pH Urine WBC (Auto) Urine Creatinine Urine Total Protein Fluid Total Protein Vancomycin Trough Rheumatoid Factor Complement C4 Miscellaneous Test Crossmatch See Detail 09/25/16 09/25/16 09/25/16 12:05 17:44 23:47 WBC RBC Hgb Hct MCV MCH MCHC RDW Plt Count Lymph % (Auto) [place] % (Auto) Lymph # [place] # Baso # Seg Neutrophils % Seg Neuts % (Manual) Lymphocytes % (Manual) Monocytes % (Manual) Eosinophils % (Manual) Basophils % (Manual) Nucleated RBC % Seg Neutrophils # Seg Neutrophils # Man Lymphocytes # (Manual) Monocytes # (Manual) Eosinophils # (Manual) PT INR Fibrinogen dRVVT Confirm Interp Factor V Activity POC ABG pH POC ABG pCO2 POC ABG pO2 ABG pO2 ABG HCO3 ABG Base Excess ABG Hemoglobin Oxyhemoglobin Sodium Potassium Chloride Carbon Dioxide BUN Creatinine Glucose POC Glucose 117 H 119 H 150 H Lactic Acid Calcium Phosphorus Magnesium Direct Bilirubin AST ALT Alkaline Phosphatase Lactate Dehydrogenase Troponin T C-Reactive Protein Total Protein Albumin Prealbumin Triglycerides Cholesterol LDL Cholesterol Direct HDL Cholesterol Urine pH Urine WBC (Auto) Urine Creatinine Urine Total Protein Fluid Total Protein Vancomycin Trough Rheumatoid Factor Complement C4 Miscellaneous Test Crossmatch 09/26/16 09/26/16 09/26/16 04:25 04:25 04:25 WBC RBC 2.65 L Hgb 7.4 L Hct 21.6 L MCV MCH MCHC RDW 22.5 H Plt Count Lymph % (Auto) [place] % (Auto) Lymph # [place] # Baso # Seg Neutrophils % Seg Neuts % (Manual) Lymphocytes % (Manual) 6.0 L Monocytes % (Manual) Eosinophils % (Manual) 11.0 H Basophils % (Manual) Nucleated RBC % Seg Neutrophils # Seg Neutrophils # Man Lymphocytes # (Manual) 0.4 L Monocytes # (Manual) Eosinophils # (Manual) 0.6 H PT INR Fibrinogen dRVVT Confirm Interp Factor V Activity POC ABG pH POC ABG pCO2 POC ABG pO2 ABG pO2 ABG HCO3 ABG Base Excess ABG Hemoglobin Oxyhemoglobin Sodium Potassium Chloride 97.0 L Carbon Dioxide 19 L BUN 43 H Creatinine 2.6 H Glucose 130 H POC Glucose Lactic Acid 4.40 H* Calcium 6.7 L Phosphorus Magnesium Direct Bilirubin AST ALT Alkaline Phosphatase Lactate Dehydrogenase Troponin T C-Reactive Protein Total Protein Albumin Prealbumin Triglycerides Cholesterol LDL Cholesterol Direct HDL Cholesterol Urine pH Urine WBC (Auto) Urine Creatinine Urine Total Protein Fluid Total Protein Vancomycin Trough Rheumatoid Factor Complement C4 Miscellaneous Test Crossmatch 09/26/16 09/26/16 09/26/16 05:20 11:44 12:12 WBC RBC Hgb Hct MCV MCH MCHC RDW Plt Count Lymph % (Auto) [place] % (Auto) Lymph # [place] # Baso # Seg Neutrophils % Seg Neuts % (Manual) Lymphocytes % (Manual) Monocytes % (Manual) Eosinophils % (Manual) Basophils % (Manual) Nucleated RBC % Seg Neutrophils # Seg Neutrophils # Man Lymphocytes # (Manual) Monocytes # (Manual) Eosinophils # (Manual) PT INR Fibrinogen dRVVT Confirm Interp Factor V Activity POC ABG pH POC ABG pCO2 27.0 L POC ABG pO2 69 L ABG pO2 ABG HCO3 ABG Base Excess ABG Hemoglobin Oxyhemoglobin Sodium Potassium Chloride Carbon Dioxide BUN Creatinine Glucose POC Glucose 121 H 128 H Lactic Acid Calcium Phosphorus Magnesium Direct Bilirubin AST ALT Alkaline Phosphatase Lactate Dehydrogenase Troponin T C-Reactive Protein Total Protein Albumin Prealbumin Triglycerides Cholesterol LDL Cholesterol Direct HDL Cholesterol Urine pH Urine WBC (Auto) Urine Creatinine Urine Total Protein Fluid Total Protein Vancomycin Trough Rheumatoid Factor Complement C4 Miscellaneous Test Crossmatch 09/26/16 09/26/16 09/27/16 18:31 23:40 08:20 WBC RBC Hgb Hct MCV MCH MCHC RDW Plt Count Lymph % (Auto) [place] % (Auto) Lymph # [place] # Baso # Seg Neutrophils % Seg Neuts % (Manual) Lymphocytes % (Manual) Monocytes % (Manual) Eosinophils % (Manual) Basophils % (Manual) Nucleated RBC % Seg Neutrophils # Seg Neutrophils # Man Lymphocytes # (Manual) Monocytes # (Manual) Eosinophils # (Manual) PT INR Fibrinogen dRVVT Confirm Interp Factor V Activity POC ABG pH POC ABG pCO2 POC ABG pO2 ABG pO2 ABG HCO3 ABG Base Excess ABG Hemoglobin Oxyhemoglobin Sodium Potassium Chloride Carbon Dioxide BUN Creatinine Glucose POC Glucose 120 H 133 H Lactic Acid 4.10 H* Calcium Phosphorus Magnesium Direct Bilirubin AST ALT Alkaline Phosphatase Lactate Dehydrogenase Troponin T C-Reactive Protein Total Protein Albumin Prealbumin Triglycerides Cholesterol LDL Cholesterol Direct HDL Cholesterol Urine pH Urine WBC (Auto) Urine Creatinine Urine Total Protein Fluid Total Protein Vancomycin Trough Rheumatoid Factor Complement C4 Miscellaneous Test Crossmatch 09/27/16 09/27/16 09/27/16 11:23 15:00 18:15 WBC RBC Hgb Hct MCV MCH MCHC RDW Plt Count Lymph % (Auto) [place] % (Auto) Lymph # [place] # Baso # Seg Neutrophils % Seg Neuts % (Manual) Lymphocytes % (Manual) Monocytes % (Manual) Eosinophils % (Manual) Basophils % (Manual) Nucleated RBC % Seg Neutrophils # Seg Neutrophils # Man Lymphocytes # (Manual) Monocytes # (Manual) Eosinophils # (Manual) PT INR Fibrinogen dRVVT Confirm Interp Factor V Activity POC ABG pH 7.459 H POC ABG pCO2 27.1 L POC ABG pO2 140 H ABG pO2 ABG HCO3 ABG Base Excess ABG Hemoglobin Oxyhemoglobin Sodium Potassium Chloride Carbon Dioxide BUN Creatinine Glucose POC Glucose 114 H 127 H Lactic Acid Calcium Phosphorus Magnesium Direct Bilirubin AST ALT Alkaline Phosphatase Lactate Dehydrogenase Troponin T C-Reactive Protein Total Protein Albumin Prealbumin Triglycerides Cholesterol LDL Cholesterol Direct HDL Cholesterol Urine pH Urine WBC (Auto) Urine Creatinine Urine Total Protein Fluid Total Protein Vancomycin Trough Rheumatoid Factor Complement C4 Miscellaneous Test Crossmatch 09/27/16 09/27/16 09/28/16 Unknown Unknown 03:45 WBC RBC 2.49 L Hgb 6.8 L Hct 20.7 L MCV MCH 27 L MCHC RDW 22.1 H Plt Count Lymph % (Auto) [place] % (Auto) Lymph # [place] # Baso # Seg Neutrophils % Seg Neuts % (Manual) 32.0 L Lymphocytes % (Manual) 12.0 L Monocytes % (Manual) 11.0 H Eosinophils % (Manual) 10.0 H Basophils % (Manual) Nucleated RBC % Seg Neutrophils # Seg Neutrophils # Man Lymphocytes # (Manual) 1.0 L Monocytes # (Manual) 0.9 H Eosinophils # (Manual) 0.8 H PT INR Fibrinogen dRVVT Confirm Interp Factor V Activity POC ABG pH POC ABG pCO2 POC ABG pO2 ABG pO2 ABG HCO3 ABG Base Excess ABG Hemoglobin Oxyhemoglobin Sodium 135 L 135 L Potassium 3.5 L Chloride 93.6 L 94.4 L Carbon Dioxide 17 L 21 L BUN 45 H 28 H Creatinine 3.3 H 2.5 H Glucose 106 H POC Glucose Lactic Acid Calcium 7.3 L 7.1 L Phosphorus Magnesium Direct Bilirubin AST ALT Alkaline Phosphatase Lactate Dehydrogenase Troponin T C-Reactive Protein Total Protein Albumin Prealbumin Triglycerides Cholesterol LDL Cholesterol Direct HDL Cholesterol Urine pH Urine WBC (Auto) Urine Creatinine Urine Total Protein Fluid Total Protein Vancomycin Trough Rheumatoid Factor Complement C4 Miscellaneous Test Crossmatch 09/28/16 09/28/16 09/28/16 03:45 07:25 11:58 WBC 13.3 H RBC 3.01 L Hgb 8.4 L Hct 25.0 L MCV MCH MCHC RDW 20.5 H Plt Count 128 L Lymph % (Auto) [place] % (Auto) Lymph # [place] # Baso # Seg Neutrophils % Seg Neuts % (Manual) Lymphocytes % (Manual) 7.0 L Monocytes % (Manual) Eosinophils % (Manual) 6.0 H Basophils % (Manual) Nucleated RBC % Seg Neutrophils # Seg Neutrophils # Man Lymphocytes # (Manual) 0.9 L Monocytes # (Manual) Eosinophils # (Manual) 0.8 H PT INR Fibrinogen dRVVT Confirm Interp Factor V Activity POC ABG pH POC ABG pCO2 POC ABG pO2 ABG pO2 ABG HCO3 ABG Base Excess ABG Hemoglobin Oxyhemoglobin Sodium Potassium Chloride Carbon Dioxide BUN Creatinine Glucose POC Glucose 121 H Lactic Acid 4.50 H* Calcium Phosphorus Magnesium Direct Bilirubin AST ALT Alkaline Phosphatase Lactate Dehydrogenase Troponin T C-Reactive Protein Total Protein Albumin Prealbumin Triglycerides Cholesterol LDL Cholesterol Direct HDL Cholesterol Urine pH Urine WBC (Auto) Urine Creatinine Urine Total Protein Fluid Total Protein Vancomycin Trough Rheumatoid Factor Complement C4 Miscellaneous Test Crossmatch 09/29/16 09/29/16 09/29/16 06:45 06:45 06:45 WBC 14.9 H RBC 2.74 L Hgb 7.6 L Hct 23.2 L MCV MCH MCHC RDW 20.5 H Plt Count 81 L Lymph % (Auto) [place] % (Auto) Lymph # [place] # Baso # Seg Neutrophils % Seg Neuts % (Manual) 81.0 H Lymphocytes % (Manual) 4.0 L Monocytes % (Manual) Eosinophils % (Manual) Basophils % (Manual) Nucleated RBC % Seg Neutrophils # Seg Neutrophils # Man 12.1 H Lymphocytes # (Manual) 0.6 L Monocytes # (Manual) Eosinophils # (Manual) PT INR Fibrinogen dRVVT Confirm Interp Factor V Activity POC ABG pH POC ABG pCO2 POC ABG pO2 ABG pO2 ABG HCO3 ABG Base Excess ABG Hemoglobin Oxyhemoglobin Sodium 133 L Potassium 3.4 L Chloride 92.5 L Carbon Dioxide 21 L BUN 33 H Creatinine 3.0 H Glucose POC Glucose Lactic Acid Calcium 6.6 L Phosphorus Magnesium 1.40 L Direct Bilirubin 0.9 H AST ALT Alkaline Phosphatase Lactate Dehydrogenase Troponin T C-Reactive Protein Total Protein 4.3 L Albumin 1.3 L Prealbumin Triglycerides Cholesterol LDL Cholesterol Direct HDL Cholesterol Urine pH Urine WBC (Auto) Urine Creatinine Urine Total Protein Fluid Total Protein Vancomycin Trough Rheumatoid Factor Complement C4 Miscellaneous Test Crossmatch 09/29/16 09/29/16 09/30/16 17:52 20:12 00:07 WBC RBC Hgb Hct MCV MCH MCHC RDW Plt Count Lymph % (Auto) [place] % (Auto) Lymph # [place] # Baso # Seg Neutrophils % Seg Neuts % (Manual) Lymphocytes % (Manual) Monocytes % (Manual) Eosinophils % (Manual) Basophils % (Manual) Nucleated RBC % Seg Neutrophils # Seg Neutrophils # Man Lymphocytes # (Manual) Monocytes # (Manual) Eosinophils # (Manual) PT INR Fibrinogen dRVVT Confirm Interp Factor V Activity POC ABG pH POC ABG pCO2 POC ABG pO2 ABG pO2 ABG HCO3 ABG Base Excess ABG Hemoglobin Oxyhemoglobin Sodium Potassium Chloride Carbon Dioxide BUN Creatinine Glucose POC Glucose 50 L 51 L Lactic Acid Calcium Phosphorus Magnesium Direct Bilirubin AST ALT Alkaline Phosphatase Lactate Dehydrogenase Troponin T 0.204 H* C-Reactive Protein Total Protein Albumin Prealbumin Triglycerides Cholesterol 31 L LDL Cholesterol Direct 4 L HDL Cholesterol 3 L Urine pH Urine WBC (Auto) Urine Creatinine Urine Total Protein Fluid Total Protein Vancomycin Trough Rheumatoid Factor Complement C4 Miscellaneous Test Crossmatch 09/30/16 09/30/16 09/30/16 01:30 05:15 06:10 WBC RBC Hgb Hct MCV MCH MCHC RDW Plt Count Lymph % (Auto) [place] % (Auto) Lymph # [place] # Baso # Seg Neutrophils % Seg Neuts % (Manual) Lymphocytes % (Manual) Monocytes % (Manual) Eosinophils % (Manual) Basophils % (Manual) Nucleated RBC % Seg Neutrophils # Seg Neutrophils # Man Lymphocytes # (Manual) Monocytes # (Manual) Eosinophils # (Manual) PT INR Fibrinogen dRVVT Confirm Interp Factor V Activity POC ABG pH POC ABG pCO2 POC ABG pO2 ABG pO2 ABG HCO3 ABG Base Excess ABG Hemoglobin Oxyhemoglobin Sodium 133 L Potassium 3.2 L Chloride 93.2 L Carbon Dioxide 19 L BUN 36 H Creatinine 3.2 H Glucose 104 H POC Glucose 167 H 146 H Lactic Acid Calcium 6.4 L Phosphorus Magnesium 1.60 L Direct Bilirubin AST ALT Alkaline Phosphatase Lactate Dehydrogenase Troponin T C-Reactive Protein Total Protein Albumin Prealbumin Triglycerides Cholesterol LDL Cholesterol Direct HDL Cholesterol Urine pH Urine WBC (Auto) Urine Creatinine Urine Total Protein Fluid Total Protein Vancomycin Trough Rheumatoid Factor Complement C4 Miscellaneous Test Crossmatch 09/30/16 09/30/16 09/30/16 11:26 13:39 18:38 WBC RBC Hgb Hct MCV MCH MCHC RDW Plt Count Lymph % (Auto) [place] % (Auto) Lymph # [place] # Baso # Seg Neutrophils % Seg Neuts % (Manual) Lymphocytes % (Manual) Monocytes % (Manual) Eosinophils % (Manual) Basophils % (Manual) Nucleated RBC % Seg Neutrophils # Seg Neutrophils # Man Lymphocytes # (Manual) Monocytes # (Manual) Eosinophils # (Manual) PT INR Fibrinogen dRVVT Confirm Interp Factor V Activity POC ABG pH 7.479 H POC ABG pCO2 29.8 L POC ABG pO2 117 H ABG pO2 ABG HCO3 ABG Base Excess ABG Hemoglobin Oxyhemoglobin Sodium Potassium Chloride Carbon Dioxide BUN Creatinine Glucose POC Glucose 140 H 122 H Lactic Acid Calcium Phosphorus Magnesium Direct Bilirubin AST ALT Alkaline Phosphatase Lactate Dehydrogenase Troponin T C-Reactive Protein Total Protein Albumin Prealbumin Triglycerides Cholesterol LDL Cholesterol Direct HDL Cholesterol Urine pH Urine WBC (Auto) Urine Creatinine Urine Total Protein Fluid Total Protein Vancomycin Trough Rheumatoid Factor Complement C4 Miscellaneous Test Crossmatch 10/01/16 10/01/16 10/01/16 06:00 06:00 12:37 WBC 12.6 H RBC 2.75 L Hgb 7.3 L Hct 23.3 L MCV MCH 27 L MCHC RDW 20.6 H Plt Count 72 L Lymph % (Auto) [place] % (Auto) Lymph # [place] # Baso # Seg Neutrophils % Seg Neuts % (Manual) 31.0 L Lymphocytes % (Manual) 8.0 L Monocytes % (Manual) Eosinophils % (Manual) Basophils % (Manual) Nucleated RBC % 3.0 H Seg Neutrophils # Seg Neutrophils # Man Lymphocytes # (Manual) 1.0 L Monocytes # (Manual) Eosinophils # (Manual) PT INR Fibrinogen dRVVT Confirm Interp Factor V Activity POC ABG pH POC ABG pCO2 POC ABG pO2 ABG pO2 ABG HCO3 ABG Base Excess ABG Hemoglobin Oxyhemoglobin Sodium 127 L Potassium Chloride 86.8 L Carbon Dioxide 20 L BUN 42 H Creatinine 3.5 H Glucose POC Glucose 65 L Lactic Acid Calcium 7.0 L Phosphorus Magnesium Direct Bilirubin AST ALT Alkaline Phosphatase Lactate Dehydrogenase Troponin T C-Reactive Protein Total Protein Albumin Prealbumin Triglycerides Cholesterol LDL Cholesterol Direct HDL Cholesterol Urine pH Urine WBC (Auto) Urine Creatinine Urine Total Protein Fluid Total Protein Vancomycin Trough Rheumatoid Factor Complement C4 Miscellaneous Test Crossmatch 10/01/16 10/01/16 10/02/16 17:39 23:32 00:59 WBC RBC Hgb Hct MCV MCH MCHC RDW Plt Count Lymph % (Auto) [place] % (Auto) Lymph # [place] # Baso # Seg Neutrophils % Seg Neuts % (Manual) Lymphocytes % (Manual) Monocytes % (Manual) Eosinophils % (Manual) Basophils % (Manual) Nucleated RBC % Seg Neutrophils # Seg Neutrophils # Man Lymphocytes # (Manual) Monocytes # (Manual) Eosinophils # (Manual) PT INR Fibrinogen dRVVT Confirm Interp Factor V Activity POC ABG pH POC ABG pCO2 POC ABG pO2 ABG pO2 ABG HCO3 ABG Base Excess ABG Hemoglobin Oxyhemoglobin Sodium Potassium Chloride Carbon Dioxide BUN Creatinine Glucose POC Glucose 107 H 52 L 145 H Lactic Acid Calcium Phosphorus Magnesium Direct Bilirubin AST ALT Alkaline Phosphatase Lactate Dehydrogenase Troponin T C-Reactive Protein Total Protein Albumin Prealbumin Triglycerides Cholesterol LDL Cholesterol Direct HDL Cholesterol Urine pH Urine WBC (Auto) Urine Creatinine Urine Total Protein Fluid Total Protein Vancomycin Trough Rheumatoid Factor Complement C4 Miscellaneous Test Crossmatch 10/02/16 10/02/16 10/02/16 10:30 10:50 10:50 WBC 14.7 H RBC 2.76 L Hgb 7.4 L Hct 23.6 L MCV MCH 27 L MCHC RDW 20.2 H Plt Count 79 L Lymph % (Auto) [place] % (Auto) Lymph # [place] # Baso # Seg Neutrophils % Seg Neuts % (Manual) 86.0 H Lymphocytes % (Manual) 6.0 L Monocytes % (Manual) Eosinophils % (Manual) Basophils % (Manual) Nucleated RBC % Seg Neutrophils # Seg Neutrophils # Man 12.6 H Lymphocytes # (Manual) 0.9 L Monocytes # (Manual) Eosinophils # (Manual) PT INR Fibrinogen dRVVT Confirm Interp Factor V Activity POC ABG pH 7.486 H POC ABG pCO2 30.1 L POC ABG pO2 108 H ABG pO2 ABG HCO3 ABG Base Excess ABG Hemoglobin Oxyhemoglobin Sodium 131 L Potassium 3.4 L Chloride 89.9 L Carbon Dioxide BUN 26 H Creatinine 2.6 H Glucose POC Glucose Lactic Acid Calcium 7.0 L Phosphorus Magnesium Direct Bilirubin AST ALT Alkaline Phosphatase Lactate Dehydrogenase Troponin T C-Reactive Protein Total Protein Albumin Prealbumin Triglycerides Cholesterol LDL Cholesterol Direct HDL Cholesterol Urine pH Urine WBC (Auto) Urine Creatinine Urine Total Protein Fluid Total Protein Vancomycin Trough Rheumatoid Factor Complement C4 Miscellaneous Test Crossmatch 10/02/16 10/03/16 10/03/16 23:45 00:45 05:10 WBC 12.9 H RBC 2.77 L Hgb 7.6 L Hct 23.7 L MCV MCH 27 L MCHC RDW 19.7 H Plt Count 89 L Lymph % (Auto) [place] % (Auto) Lymph # [place] # Baso # Seg Neutrophils % Seg Neuts % (Manual) Lymphocytes % (Manual) 8.0 L Monocytes % (Manual) Eosinophils % (Manual) Basophils % (Manual) Nucleated RBC % Seg Neutrophils # 11.9 H Seg Neutrophils # Man Lymphocytes # (Manual) 1.0 L Monocytes # (Manual) Eosinophils # (Manual) PT INR Fibrinogen dRVVT Confirm Interp Factor V Activity POC ABG pH POC ABG pCO2 POC ABG pO2 ABG pO2 ABG HCO3 ABG Base Excess ABG Hemoglobin Oxyhemoglobin Sodium Potassium Chloride Carbon Dioxide BUN Creatinine Glucose POC Glucose 55 L 199 H Lactic Acid Calcium Phosphorus Magnesium Direct Bilirubin AST ALT Alkaline Phosphatase Lactate Dehydrogenase Troponin T C-Reactive Protein Total Protein Albumin Prealbumin Triglycerides Cholesterol LDL Cholesterol Direct HDL Cholesterol Urine pH Urine WBC (Auto) Urine Creatinine Urine Total Protein Fluid Total Protein Vancomycin Trough Rheumatoid Factor Complement C4 Miscellaneous Test Crossmatch 10/03/16 10/03/16 10/03/16 05:10 12:14 13:18 WBC RBC Hgb Hct MCV MCH MCHC RDW Plt Count Lymph % (Auto) [place] % (Auto) Lymph # [place] # Baso # Seg Neutrophils % Seg Neuts % (Manual) Lymphocytes % (Manual) Monocytes % (Manual) Eosinophils % (Manual) Basophils % (Manual) Nucleated RBC % Seg Neutrophils # Seg Neutrophils # Man Lymphocytes # (Manual) Monocytes # (Manual) Eosinophils # (Manual) PT INR Fibrinogen dRVVT Confirm Interp Factor V Activity POC ABG pH POC ABG pCO2 POC ABG pO2 ABG pO2 ABG HCO3 ABG Base Excess ABG Hemoglobin Oxyhemoglobin Sodium 129 L Potassium 3.3 L Chloride 88.8 L Carbon Dioxide 20 L BUN 29 H Creatinine 2.8 H Glucose POC Glucose 68 L 127 H Lactic Acid Calcium 7.2 L Phosphorus Magnesium Direct Bilirubin AST ALT Alkaline Phosphatase Lactate Dehydrogenase Troponin T C-Reactive Protein Total Protein Albumin Prealbumin Triglycerides Cholesterol LDL Cholesterol Direct HDL Cholesterol Urine pH Urine WBC (Auto) Urine Creatinine Urine Total Protein Fluid Total Protein Vancomycin Trough Rheumatoid Factor Complement C4 Miscellaneous Test Crossmatch 10/03/16 10/03/16 10/03/16 14:42 18:21 19:09 WBC RBC Hgb Hct MCV MCH MCHC RDW Plt Count Lymph % (Auto) [place] % (Auto) Lymph # [place] # Baso # Seg Neutrophils % Seg Neuts % (Manual) Lymphocytes % (Manual) Monocytes % (Manual) Eosinophils % (Manual) Basophils % (Manual) Nucleated RBC % Seg Neutrophils # Seg Neutrophils # Man Lymphocytes # (Manual) Monocytes # (Manual) Eosinophils # (Manual) PT INR Fibrinogen dRVVT Confirm Interp Factor V Activity POC ABG pH 7.499 H POC ABG pCO2 28.4 L POC ABG pO2 44 L ABG pO2 ABG HCO3 ABG Base Excess ABG Hemoglobin Oxyhemoglobin Sodium Potassium Chloride Carbon Dioxide BUN Creatinine Glucose POC Glucose 64 L 205 H Lactic Acid Calcium Phosphorus Magnesium Direct Bilirubin AST ALT Alkaline Phosphatase Lactate Dehydrogenase Troponin T C-Reactive Protein Total Protein Albumin Prealbumin Triglycerides Cholesterol LDL Cholesterol Direct HDL Cholesterol Urine pH Urine WBC (Auto) Urine Creatinine Urine Total Protein Fluid Total Protein Vancomycin Trough Rheumatoid Factor Complement C4 Miscellaneous Test Crossmatch 10/03/16 10/04/16 10/04/16 23:33 04:18 06:30 WBC RBC 2.54 L Hgb 7.1 L Hct 21.7 L MCV MCH MCHC RDW 19.5 H Plt Count 76 L Lymph % (Auto) [place] % (Auto) Lymph # [place] # Baso # Seg Neutrophils % Seg Neuts % (Manual) 88.0 H Lymphocytes % (Manual) 6.0 L Monocytes % (Manual) Eosinophils % (Manual) Basophils % (Manual) Nucleated RBC % Seg Neutrophils # Seg Neutrophils # Man 8.8 H Lymphocytes # (Manual) 0.6 L Monocytes # (Manual) Eosinophils # (Manual) PT INR Fibrinogen dRVVT Confirm Interp Factor V Activity POC ABG pH 7.461 H POC ABG pCO2 33.6 L POC ABG pO2 211 H ABG pO2 ABG HCO3 ABG Base Excess ABG Hemoglobin Oxyhemoglobin Sodium Potassium Chloride Carbon Dioxide BUN Creatinine Glucose POC Glucose 136 H Lactic Acid Calcium Phosphorus Magnesium Direct Bilirubin AST ALT Alkaline Phosphatase Lactate Dehydrogenase Troponin T C-Reactive Protein Total Protein Albumin Prealbumin Triglycerides Cholesterol LDL Cholesterol Direct HDL Cholesterol Urine pH Urine WBC (Auto) Urine Creatinine Urine Total Protein Fluid Total Protein Vancomycin Trough Rheumatoid Factor Complement C4 Miscellaneous Test Crossmatch 10/04/16 10/04/16 10/04/16 06:30 11:45 17:54 WBC RBC Hgb Hct MCV MCH MCHC RDW Plt Count Lymph % (Auto) [place] % (Auto) Lymph # [place] # Baso # Seg Neutrophils % Seg Neuts % (Manual) Lymphocytes % (Manual) Monocytes % (Manual) Eosinophils % (Manual) Basophils % (Manual) Nucleated RBC % Seg Neutrophils # Seg Neutrophils # Man Lymphocytes # (Manual) Monocytes # (Manual) Eosinophils # (Manual) PT INR Fibrinogen dRVVT Confirm Interp Factor V Activity POC ABG pH POC ABG pCO2 POC ABG pO2 ABG pO2 ABG HCO3 ABG Base Excess ABG Hemoglobin Oxyhemoglobin Sodium 128 L Potassium Chloride 87.4 L Carbon Dioxide 20 L BUN 34 H Creatinine 2.9 H Glucose 127 H POC Glucose 158 H 160 H Lactic Acid Calcium 7.4 L Phosphorus Magnesium Direct Bilirubin AST ALT Alkaline Phosphatase Lactate Dehydrogenase Troponin T C-Reactive Protein Total Protein Albumin Prealbumin Triglycerides Cholesterol LDL Cholesterol Direct HDL Cholesterol Urine pH Urine WBC (Auto) Urine Creatinine Urine Total Protein Fluid Total Protein Vancomycin Trough Rheumatoid Factor Complement C4 Miscellaneous Test Crossmatch 10/04/16 10/05/16 10/05/16 23:25 04:30 05:00 WBC RBC 2.64 L Hgb 7.5 L Hct 22.6 L MCV MCH MCHC RDW 19.3 H Plt Count 80 L Lymph % (Auto) [place] % (Auto) Lymph # [place] # Baso # Seg Neutrophils % Seg Neuts % (Manual) Lymphocytes % (Manual) 12.0 L Monocytes % (Manual) Eosinophils % (Manual) Basophils % (Manual) Nucleated RBC % Seg Neutrophils # Seg Neutrophils # Man Lymphocytes # (Manual) Monocytes # (Manual) Eosinophils # (Manual) PT INR Fibrinogen dRVVT Confirm Interp Factor V Activity POC ABG pH 7.475 H POC ABG pCO2 33.3 L POC ABG pO2 140 H ABG pO2 ABG HCO3 ABG Base Excess ABG Hemoglobin Oxyhemoglobin Sodium Potassium Chloride Carbon Dioxide BUN Creatinine Glucose POC Glucose 141 H Lactic Acid Calcium Phosphorus Magnesium Direct Bilirubin AST ALT Alkaline Phosphatase Lactate Dehydrogenase Troponin T C-Reactive Protein Total Protein Albumin Prealbumin Triglycerides Cholesterol LDL Cholesterol Direct HDL Cholesterol Urine pH Urine WBC (Auto) Urine Creatinine Urine Total Protein Fluid Total Protein Vancomycin Trough Rheumatoid Factor Complement C4 Miscellaneous Test Crossmatch 10/05/16 10/05/16 10/05/16 05:00 05:09 12:58 WBC RBC Hgb Hct MCV MCH MCHC RDW Plt Count Lymph % (Auto) [place] % (Auto) Lymph # [place] # Baso # Seg Neutrophils % Seg Neuts % (Manual) Lymphocytes % (Manual) Monocytes % (Manual) Eosinophils % (Manual) Basophils % (Manual) Nucleated RBC % Seg Neutrophils # Seg Neutrophils # Man Lymphocytes # (Manual) Monocytes # (Manual) Eosinophils # (Manual) PT INR Fibrinogen dRVVT Confirm Interp Factor V Activity POC ABG pH POC ABG pCO2 POC ABG pO2 ABG pO2 ABG HCO3 ABG Base Excess ABG Hemoglobin Oxyhemoglobin Sodium 131 L Potassium Chloride 94.0 L Carbon Dioxide 20 L BUN 22 H Creatinine 2.0 H Glucose 123 H POC Glucose 166 H 179 H Lactic Acid Calcium 7.7 L Phosphorus 2.20 L D Magnesium Direct Bilirubin AST ALT Alkaline Phosphatase Lactate Dehydrogenase Troponin T C-Reactive Protein Total Protein Albumin Prealbumin Triglycerides Cholesterol LDL Cholesterol Direct HDL Cholesterol Urine pH Urine WBC (Auto) Urine Creatinine Urine Total Protein Fluid Total Protein Vancomycin Trough Rheumatoid Factor Complement C4 Miscellaneous Test Crossmatch 10/05/16 10/05/16 10/05/16 15:50 18:53 23:12 WBC RBC Hgb Hct MCV MCH MCHC RDW Plt Count Lymph % (Auto) [place] % (Auto) Lymph # [place] # Baso # Seg Neutrophils % Seg Neuts % (Manual) Lymphocytes % (Manual) Monocytes % (Manual) Eosinophils % (Manual) Basophils % (Manual) Nucleated RBC % Seg Neutrophils # Seg Neutrophils # Man Lymphocytes # (Manual) Monocytes # (Manual) Eosinophils # (Manual) PT INR Fibrinogen dRVVT Confirm Interp Factor V Activity POC ABG pH POC ABG pCO2 POC ABG pO2 ABG pO2 ABG HCO3 ABG Base Excess ABG Hemoglobin Oxyhemoglobin Sodium Potassium Chloride Carbon Dioxide BUN Creatinine Glucose POC Glucose 150 H 164 H Lactic Acid Calcium Phosphorus Magnesium Direct Bilirubin AST ALT Alkaline Phosphatase Lactate Dehydrogenase Troponin T C-Reactive Protein Total Protein Albumin Prealbumin Triglycerides Cholesterol LDL Cholesterol Direct HDL Cholesterol Urine pH Urine WBC (Auto) Urine Creatinine Urine Total Protein Fluid Total Protein Vancomycin Trough Rheumatoid Factor Complement C4 Miscellaneous Test Crossmatch See Detail 10/06/16 10/06/16 10/06/16 03:50 03:50 04:53 WBC RBC 3.00 L Hgb 8.6 L Hct 25.8 L MCV MCH MCHC RDW 17.9 H Plt Count 65 L Lymph % (Auto) [place] % (Auto) Lymph # [place] # Baso # Seg Neutrophils % Seg Neuts % (Manual) 30.0 L Lymphocytes % (Manual) 5.0 L Monocytes % (Manual) Eosinophils % (Manual) Basophils % (Manual) Nucleated RBC % Seg Neutrophils # Seg Neutrophils # Man Lymphocytes # (Manual) 0.4 L Monocytes # (Manual) Eosinophils # (Manual) PT INR Fibrinogen dRVVT Confirm Interp Factor V Activity POC ABG pH 7.310 L POC ABG pCO2 49.0 H POC ABG pO2 ABG pO2 ABG HCO3 ABG Base Excess ABG Hemoglobin Oxyhemoglobin Sodium 133 L Potassium Chloride 95.9 L Carbon Dioxide BUN 26 H Creatinine 2.0 H Glucose 116 H POC Glucose Lactic Acid Calcium 7.8 L Phosphorus Magnesium Direct Bilirubin AST ALT Alkaline Phosphatase Lactate Dehydrogenase Troponin T C-Reactive Protein Total Protein Albumin Prealbumin Triglycerides Cholesterol LDL Cholesterol Direct HDL Cholesterol Urine pH Urine WBC (Auto) Urine Creatinine Urine Total Protein Fluid Total Protein Vancomycin Trough Rheumatoid Factor Complement C4 Miscellaneous Test Crossmatch 10/06/16 10/06/16 10/06/16 05:23 11:52 18:34 WBC RBC Hgb Hct MCV MCH MCHC RDW Plt Count Lymph % (Auto) [place] % (Auto) Lymph # [place] # Baso # Seg Neutrophils % Seg Neuts % (Manual) Lymphocytes % (Manual) Monocytes % (Manual) Eosinophils % (Manual) Basophils % (Manual) Nucleated RBC % Seg Neutrophils # Seg Neutrophils # Man Lymphocytes # (Manual) Monocytes # (Manual) Eosinophils # (Manual) PT INR Fibrinogen dRVVT Confirm Interp Factor V Activity POC ABG pH POC ABG pCO2 POC ABG pO2 ABG pO2 ABG HCO3 ABG Base Excess ABG Hemoglobin Oxyhemoglobin Sodium Potassium Chloride Carbon Dioxide BUN Creatinine Glucose POC Glucose 126 H 116 H 129 H Lactic Acid Calcium Phosphorus Magnesium Direct Bilirubin AST ALT Alkaline Phosphatase Lactate Dehydrogenase Troponin T C-Reactive Protein Total Protein Albumin Prealbumin Triglycerides Cholesterol LDL Cholesterol Direct HDL Cholesterol Urine pH Urine WBC (Auto) Urine Creatinine Urine Total Protein Fluid Total Protein Vancomycin Trough Rheumatoid Factor Complement C4 Miscellaneous Test Crossmatch 10/07/16 10/07/16 10/07/16 03:45 05:00 10:00 WBC 17.0 H RBC 2.68 L Hgb 7.3 L Hct 25.3 L MCV MCH 27 L MCHC 29 L RDW 19.6 H Plt Count 74 L Lymph % (Auto) [place] % (Auto) Lymph # [place] # Baso # Seg Neutrophils % Seg Neuts % (Manual) Lymphocytes % (Manual) 12.0 L Monocytes % (Manual) Eosinophils % (Manual) Basophils % (Manual) Nucleated RBC % 4.0 H Seg Neutrophils # Seg Neutrophils # Man 10.7 H Lymphocytes # (Manual) Monocytes # (Manual) Eosinophils # (Manual) PT INR Fibrinogen dRVVT Confirm Interp Factor V Activity POC ABG pH POC ABG pCO2 POC ABG pO2 ABG pO2 ABG HCO3 ABG Base Excess ABG Hemoglobin Oxyhemoglobin Sodium 130 L Potassium 3.2 L Chloride 93.9 L Carbon Dioxide 20 L BUN 44 H Creatinine 2.7 H Glucose 129 H POC Glucose Lactic Acid Calcium 7.4 L Phosphorus Magnesium Direct Bilirubin AST ALT 6 L Alkaline Phosphatase 195 H Lactate Dehydrogenase Troponin T C-Reactive Protein Total Protein 4.9 L Albumin 1.0 L Prealbumin Triglycerides Cholesterol LDL Cholesterol Direct HDL Cholesterol Urine pH Urine WBC (Auto) Urine Creatinine Urine Total Protein Fluid Total Protein Vancomycin Trough Rheumatoid Factor Complement C4 Miscellaneous Test Flexitest 1 H Crossmatch 10/07/16 10/07/16 10/07/16 10:00 11:24 18:10 WBC RBC Hgb Hct MCV MCH MCHC RDW Plt Count Lymph % (Auto) [place] % (Auto) Lymph # [place] # Baso # Seg Neutrophils % Seg Neuts % (Manual) Lymphocytes % (Manual) Monocytes % (Manual) Eosinophils % (Manual) Basophils % (Manual) Nucleated RBC % Seg Neutrophils # Seg Neutrophils # Man Lymphocytes # (Manual) Monocytes # (Manual) Eosinophils # (Manual) PT INR Fibrinogen dRVVT Confirm Interp Factor V Activity POC ABG pH POC ABG pCO2 POC ABG pO2 ABG pO2 ABG HCO3 ABG Base Excess ABG Hemoglobin Oxyhemoglobin Sodium Potassium Chloride Carbon Dioxide BUN Creatinine Glucose POC Glucose 116 H 130 H Lactic Acid Calcium Phosphorus Magnesium Direct Bilirubin AST ALT Alkaline Phosphatase Lactate Dehydrogenase Troponin T C-Reactive Protein 19.40 H Total Protein Albumin Prealbumin Triglycerides Cholesterol LDL Cholesterol Direct HDL Cholesterol Urine pH Urine WBC (Auto) Urine Creatinine Urine Total Protein Fluid Total Protein Vancomycin Trough Rheumatoid Factor Complement C4 Miscellaneous Test Crossmatch 10/07/16 10/08/16 10/08/16 18:30 00:00 04:00 WBC RBC Hgb Hct MCV MCH MCHC RDW Plt Count Lymph % (Auto) [place] % (Auto) Lymph # [place] # Baso # Seg Neutrophils % Seg Neuts % (Manual) Lymphocytes % (Manual) Monocytes % (Manual) Eosinophils % (Manual) Basophils % (Manual) Nucleated RBC % Seg Neutrophils # Seg Neutrophils # Man Lymphocytes # (Manual) Monocytes # (Manual) Eosinophils # (Manual) PT INR Fibrinogen dRVVT Confirm Interp Factor V Activity POC ABG pH POC ABG pCO2 POC ABG pO2 ABG pO2 ABG HCO3 ABG Base Excess ABG Hemoglobin Oxyhemoglobin Sodium 132 L Potassium 3.3 L Chloride 93.6 L Carbon Dioxide 17 L BUN 59 H Creatinine 2.7 H Glucose 121 H POC Glucose 122 H Lactic Acid Calcium 7.6 L Phosphorus Magnesium Direct Bilirubin AST ALT Alkaline Phosphatase Lactate Dehydrogenase Troponin T C-Reactive Protein Total Protein Albumin Prealbumin Triglycerides Cholesterol LDL Cholesterol Direct HDL Cholesterol Urine pH Urine WBC (Auto) > 182.0 H Urine Creatinine Urine Total Protein Fluid Total Protein Vancomycin Trough Rheumatoid Factor Complement C4 Miscellaneous Test Crossmatch 10/08/16 10/08/16 10/08/16 04:30 05:30 11:51 WBC RBC 5.15 H Hgb 14.4 H D Hct 44.5 H D MCV MCH MCHC RDW 19.5 H Plt Count 56 L Lymph % (Auto) [place] % (Auto) Lymph # [place] # Baso # Seg Neutrophils % Seg Neuts % (Manual) 24.0 L Lymphocytes % (Manual) 8.0 L Monocytes % (Manual) Eosinophils % (Manual) Basophils % (Manual) Nucleated RBC % 9.0 H Seg Neutrophils # Seg Neutrophils # Man Lymphocytes # (Manual) 0.7 L Monocytes # (Manual) Eosinophils # (Manual) PT INR Fibrinogen dRVVT Confirm Interp Factor V Activity POC ABG pH POC ABG pCO2 POC ABG pO2 ABG pO2 ABG HCO3 ABG Base Excess ABG Hemoglobin Oxyhemoglobin Sodium Potassium Chloride Carbon Dioxide BUN Creatinine Glucose POC Glucose 125 H 150 H Lactic Acid Calcium Phosphorus Magnesium Direct Bilirubin AST ALT Alkaline Phosphatase Lactate Dehydrogenase Troponin T C-Reactive Protein Total Protein Albumin Prealbumin Triglycerides Cholesterol LDL Cholesterol Direct HDL Cholesterol Urine pH Urine WBC (Auto) Urine Creatinine Urine Total Protein Fluid Total Protein Vancomycin Trough Rheumatoid Factor Complement C4 Miscellaneous Test Crossmatch 10/08/16 10/08/16 10/08/16 12:49 17:07 19:30 WBC RBC Hgb 7.1 L D Hct 22.4 L D MCV MCH MCHC RDW Plt Count Lymph % (Auto) [place] % (Auto) Lymph # [place] # Baso # Seg Neutrophils % Seg Neuts % (Manual) Lymphocytes % (Manual) Monocytes % (Manual) Eosinophils % (Manual) Basophils % (Manual) Nucleated RBC % Seg Neutrophils # Seg Neutrophils # Man Lymphocytes # (Manual) Monocytes # (Manual) Eosinophils # (Manual) PT INR Fibrinogen dRVVT Confirm Interp Factor V Activity POC ABG pH POC ABG pCO2 28.2 L POC ABG pO2 111 H ABG pO2 ABG HCO3 ABG Base Excess ABG Hemoglobin Oxyhemoglobin Sodium Potassium Chloride Carbon Dioxide BUN Creatinine Glucose POC Glucose 145 H Lactic Acid Calcium Phosphorus Magnesium Direct Bilirubin AST ALT Alkaline Phosphatase Lactate Dehydrogenase Troponin T C-Reactive Protein Total Protein Albumin Prealbumin Triglycerides Cholesterol LDL Cholesterol Direct HDL Cholesterol Urine pH Urine WBC (Auto) Urine Creatinine Urine Total Protein Fluid Total Protein Vancomycin Trough Rheumatoid Factor Complement C4 Miscellaneous Test Crossmatch 10/08/16 10/09/16 10/09/16 19:30 03:45 03:45 WBC 12.6 H RBC 2.36 L Hgb 6.7 L Hct 21.1 L MCV MCH MCHC RDW 19.5 H Plt Count 75 L Lymph % (Auto) [place] % (Auto) Lymph # [place] # Baso # Seg Neutrophils % Seg Neuts % (Manual) Lymphocytes % (Manual) Monocytes % (Manual) 10.0 H Eosinophils % (Manual) Basophils % (Manual) Nucleated RBC % 3.0 H Seg Neutrophils # Seg Neutrophils # Man Lymphocytes # (Manual) Monocytes # (Manual) 1.3 H Eosinophils # (Manual) PT 18.0 H INR 1.41 H Fibrinogen dRVVT Confirm Interp Factor V Activity POC ABG pH POC ABG pCO2 POC ABG pO2 ABG pO2 ABG HCO3 ABG Base Excess ABG Hemoglobin Oxyhemoglobin Sodium 135 L Potassium Chloride Carbon Dioxide 17 L BUN 81 H Creatinine 3.2 H Glucose 109 H POC Glucose Lactic Acid Calcium 7.4 L Phosphorus 4.60 H D Magnesium Direct Bilirubin AST ALT Alkaline Phosphatase Lactate Dehydrogenase Troponin T C-Reactive Protein Total Protein Albumin Prealbumin Triglycerides Cholesterol LDL Cholesterol Direct HDL Cholesterol Urine pH Urine WBC (Auto) Urine Creatinine Urine Total Protein Fluid Total Protein Vancomycin Trough Rheumatoid Factor Complement C4 Miscellaneous Test Crossmatch 10/09/16 10/09/16 10/09/16 03:45 05:14 07:20 WBC RBC Hgb Hct MCV MCH MCHC RDW Plt Count Lymph % (Auto) [place] % (Auto) Lymph # [place] # Baso # Seg Neutrophils % Seg Neuts % (Manual) Lymphocytes % (Manual) Monocytes % (Manual) Eosinophils % (Manual) Basophils % (Manual) Nucleated RBC % Seg Neutrophils # Seg Neutrophils # Man Lymphocytes # (Manual) Monocytes # (Manual) Eosinophils # (Manual) PT 19.0 H INR 1.51 H Fibrinogen dRVVT Confirm Interp Factor V Activity POC ABG pH POC ABG pCO2 POC ABG pO2 ABG pO2 ABG HCO3 ABG Base Excess ABG Hemoglobin Oxyhemoglobin Sodium Potassium Chloride Carbon Dioxide BUN Creatinine Glucose POC Glucose 151 H Lactic Acid Calcium Phosphorus Magnesium Direct Bilirubin AST ALT Alkaline Phosphatase Lactate Dehydrogenase Troponin T C-Reactive Protein Total Protein Albumin Prealbumin Triglycerides Cholesterol LDL Cholesterol Direct HDL Cholesterol Urine pH Urine WBC (Auto) Urine Creatinine Urine Total Protein Fluid Total Protein Vancomycin Trough Rheumatoid Factor Complement C4 Miscellaneous Test Crossmatch See Detail 10/09/16 10/09/16 10/09/16 11:46 16:20 16:43 WBC RBC Hgb 7.2 L Hct 22.2 L MCV MCH MCHC RDW Plt Count Lymph % (Auto) [place] % (Auto) Lymph # [place] # Baso # Seg Neutrophils % Seg Neuts % (Manual) Lymphocytes % (Manual) Monocytes % (Manual) Eosinophils % (Manual) Basophils % (Manual) Nucleated RBC % Seg Neutrophils # Seg Neutrophils # Man Lymphocytes # (Manual) Monocytes # (Manual) Eosinophils # (Manual) PT INR Fibrinogen dRVVT Confirm Interp Factor V Activity POC ABG pH POC ABG pCO2 POC ABG pO2 ABG pO2 ABG HCO3 ABG Base Excess ABG Hemoglobin Oxyhemoglobin Sodium Potassium Chloride Carbon Dioxide BUN Creatinine Glucose POC Glucose 133 H 141 H Lactic Acid Calcium Phosphorus Magnesium Direct Bilirubin AST ALT Alkaline Phosphatase Lactate Dehydrogenase Troponin T C-Reactive Protein Total Protein Albumin Prealbumin Triglycerides Cholesterol LDL Cholesterol Direct HDL Cholesterol Urine pH Urine WBC (Auto) Urine Creatinine Urine Total Protein Fluid Total Protein Vancomycin Trough Rheumatoid Factor Complement C4 Miscellaneous Test Crossmatch 10/10/16 10/10/16 10/10/16 05:00 05:00 11:19 WBC 18.5 H RBC 2.19 L Hgb 6.4 L Hct 19.6 L* MCV MCH MCHC RDW 19.3 H Plt Count 93 L Lymph % (Auto) [place] % (Auto) Lymph # [place] # Baso # Seg Neutrophils % Seg Neuts % (Manual) Lymphocytes % (Manual) 10.0 L Monocytes % (Manual) Eosinophils % (Manual) Basophils % (Manual) Nucleated RBC % 4.0 H Seg Neutrophils # Seg Neutrophils # Man 11.3 H Lymphocytes # (Manual) Monocytes # (Manual) Eosinophils # (Manual) PT INR Fibrinogen dRVVT Confirm Interp Factor V Activity POC ABG pH POC ABG pCO2 POC ABG pO2 ABG pO2 ABG HCO3 ABG Base Excess ABG Hemoglobin Oxyhemoglobin Sodium Potassium 5.7 H D Chloride Carbon Dioxide 16 L BUN 94 H Creatinine 3.1 H Glucose 131 H POC Glucose 153 H Lactic Acid Calcium 8.2 L Phosphorus 5.10 H Magnesium 2.40 H Direct Bilirubin 0.3 H AST ALT < 5 L Alkaline Phosphatase 319 H Lactate Dehydrogenase Troponin T C-Reactive Protein Total Protein 5.1 L Albumin 1.0 L Prealbumin Triglycerides Cholesterol LDL Cholesterol Direct HDL Cholesterol Urine pH Urine WBC (Auto) Urine Creatinine Urine Total Protein Fluid Total Protein Vancomycin Trough Rheumatoid Factor Complement C4 Miscellaneous Test Crossmatch 10/10/16 10/10/16 10/11/16 17:50 23:30 04:15 WBC RBC Hgb Hct MCV MCH MCHC RDW Plt Count Lymph % (Auto) [place] % (Auto) Lymph # [place] # Baso # Seg Neutrophils % Seg Neuts % (Manual) Lymphocytes % (Manual) Monocytes % (Manual) Eosinophils % (Manual) Basophils % (Manual) Nucleated RBC % Seg Neutrophils # Seg Neutrophils # Man Lymphocytes # (Manual) Monocytes # (Manual) Eosinophils # (Manual) PT INR Fibrinogen dRVVT Confirm Interp Factor V Activity POC ABG pH POC ABG pCO2 POC ABG pO2 ABG pO2 ABG HCO3 ABG Base Excess ABG Hemoglobin Oxyhemoglobin Sodium Potassium Chloride 96.4 L Carbon Dioxide 21 L BUN 57 H Creatinine 2.1 H Glucose 151 H POC Glucose 146 H 141 H Lactic Acid Calcium 8.3 L Phosphorus Magnesium Direct Bilirubin AST ALT Alkaline Phosphatase Lactate Dehydrogenase Troponin T C-Reactive Protein Total Protein Albumin Prealbumin Triglycerides Cholesterol LDL Cholesterol Direct HDL Cholesterol Urine pH Urine WBC (Auto) Urine Creatinine Urine Total Protein Fluid Total Protein Vancomycin Trough Rheumatoid Factor Complement C4 Miscellaneous Test Crossmatch 10/11/16 10/11/16 10/11/16 04:15 04:15 05:30 WBC 28.3 H RBC 3.12 L Hgb 9.3 L Hct 28.7 L D MCV MCH MCHC RDW 17.7 H Plt Count 128 L Lymph % (Auto) [place] % (Auto) Lymph # [place] # Baso # Seg Neutrophils % Seg Neuts % (Manual) Lymphocytes % (Manual) Monocytes % (Manual) Eosinophils % (Manual) Basophils % (Manual) Nucleated RBC % Seg Neutrophils # Seg Neutrophils # Man Lymphocytes # (Manual) Monocytes # (Manual) Eosinophils # (Manual) PT INR Fibrinogen dRVVT Confirm Interp Factor V Activity POC ABG pH POC ABG pCO2 POC ABG pO2 ABG pO2 ABG HCO3 ABG Base Excess ABG Hemoglobin Oxyhemoglobin Sodium Potassium Chloride Carbon Dioxide BUN Creatinine Glucose POC Glucose 167 H Lactic Acid Calcium Phosphorus Magnesium Direct Bilirubin AST ALT Alkaline Phosphatase Lactate Dehydrogenase Troponin T C-Reactive Protein 15.80 H Total Protein Albumin Prealbumin Triglycerides Cholesterol LDL Cholesterol Direct HDL Cholesterol Urine pH Urine WBC (Auto) Urine Creatinine Urine Total Protein Fluid Total Protein Vancomycin Trough Rheumatoid Factor Complement C4 Miscellaneous Test Crossmatch 10/11/16 10/11/16 10/11/16 11:40 15:49 23:57 WBC RBC Hgb Hct MCV MCH MCHC RDW Plt Count Lymph % (Auto) [place] % (Auto) Lymph # [place] # Baso # Seg Neutrophils % Seg Neuts % (Manual) Lymphocytes % (Manual) Monocytes % (Manual) Eosinophils % (Manual) Basophils % (Manual) Nucleated RBC % Seg Neutrophils # Seg Neutrophils # Man Lymphocytes # (Manual) Monocytes # (Manual) Eosinophils # (Manual) PT INR Fibrinogen dRVVT Confirm Interp Factor V Activity POC ABG pH POC ABG pCO2 POC ABG pO2 ABG pO2 ABG HCO3 ABG Base Excess ABG Hemoglobin Oxyhemoglobin Sodium Potassium Chloride Carbon Dioxide BUN Creatinine Glucose POC Glucose 139 H 168 H 161 H Lactic Acid Calcium Phosphorus Magnesium Direct Bilirubin AST ALT Alkaline Phosphatase Lactate Dehydrogenase Troponin T C-Reactive Protein Total Protein Albumin Prealbumin Triglycerides Cholesterol LDL Cholesterol Direct HDL Cholesterol Urine pH Urine WBC (Auto) Urine Creatinine Urine Total Protein Fluid Total Protein Vancomycin Trough Rheumatoid Factor Complement C4 Miscellaneous Test Crossmatch 10/12/16 10/12/16 10/12/16 04:40 04:40 05:44 WBC 22.5 H RBC 2.88 L Hgb 8.8 L Hct 26.8 L MCV MCH MCHC RDW 17.8 H Plt Count Lymph % (Auto) [place] % (Auto) Lymph # [place] # Baso # Seg Neutrophils % Seg Neuts % (Manual) Lymphocytes % (Manual) Monocytes % (Manual) Eosinophils % (Manual) Basophils % (Manual) Nucleated RBC % Seg Neutrophils # Seg Neutrophils # Man Lymphocytes # (Manual) Monocytes # (Manual) Eosinophils # (Manual) PT INR Fibrinogen dRVVT Confirm Interp Factor V Activity POC ABG pH POC ABG pCO2 POC ABG pO2 ABG pO2 ABG HCO3 ABG Base Excess ABG Hemoglobin Oxyhemoglobin Sodium 134 L Potassium Chloride 93.0 L Carbon Dioxide BUN 74 H Creatinine 2.5 H Glucose 137 H POC Glucose 158 H Lactic Acid Calcium 8.2 L Phosphorus Magnesium Direct Bilirubin AST ALT Alkaline Phosphatase Lactate Dehydrogenase Troponin T C-Reactive Protein Total Protein Albumin Prealbumin Triglycerides Cholesterol LDL Cholesterol Direct HDL Cholesterol Urine pH Urine WBC (Auto) Urine Creatinine Urine Total Protein Fluid Total Protein Vancomycin Trough Rheumatoid Factor Complement C4 Miscellaneous Test Crossmatch 10/12/16 10/12/16 10/12/16 12:27 18:18 23:46 WBC RBC Hgb Hct MCV MCH MCHC RDW Plt Count Lymph % (Auto) [place] % (Auto) Lymph # [place] # Baso # Seg Neutrophils % Seg Neuts % (Manual) Lymphocytes % (Manual) Monocytes % (Manual) Eosinophils % (Manual) Basophils % (Manual) Nucleated RBC % Seg Neutrophils # Seg Neutrophils # Man Lymphocytes # (Manual) Monocytes # (Manual) Eosinophils # (Manual) PT INR Fibrinogen dRVVT Confirm Interp Factor V Activity POC ABG pH POC ABG pCO2 POC ABG pO2 ABG pO2 ABG HCO3 ABG Base Excess ABG Hemoglobin Oxyhemoglobin Sodium Potassium Chloride Carbon Dioxide BUN Creatinine Glucose POC Glucose 153 H 140 H 150 H Lactic Acid Calcium Phosphorus Magnesium Direct Bilirubin AST ALT Alkaline Phosphatase Lactate Dehydrogenase Troponin T C-Reactive Protein Total Protein Albumin Prealbumin Triglycerides Cholesterol LDL Cholesterol Direct HDL Cholesterol Urine pH Urine WBC (Auto) Urine Creatinine Urine Total Protein Fluid Total Protein Vancomycin Trough Rheumatoid Factor Complement C4 Miscellaneous Test Crossmatch 10/13/16 10/13/16 10/13/16 06:22 09:20 12:29 WBC RBC Hgb Hct MCV MCH MCHC RDW Plt Count Lymph % (Auto) [place] % (Auto) Lymph # [place] # Baso # Seg Neutrophils % Seg Neuts % (Manual) Lymphocytes % (Manual) Monocytes % (Manual) Eosinophils % (Manual) Basophils % (Manual) Nucleated RBC % Seg Neutrophils # Seg Neutrophils # Man Lymphocytes # (Manual) Monocytes # (Manual) Eosinophils # (Manual) PT INR Fibrinogen dRVVT Confirm Interp Factor V Activity POC ABG pH POC ABG pCO2 POC ABG pO2 ABG pO2 ABG HCO3 ABG Base Excess ABG Hemoglobin Oxyhemoglobin Sodium Potassium Chloride Carbon Dioxide BUN Creatinine Glucose POC Glucose 165 H 193 H Lactic Acid Calcium Phosphorus Magnesium Direct Bilirubin AST ALT Alkaline Phosphatase Lactate Dehydrogenase Troponin T C-Reactive Protein Total Protein Albumin Prealbumin Triglycerides Cholesterol LDL Cholesterol Direct HDL Cholesterol Urine pH Urine WBC (Auto) Urine Creatinine Urine Total Protein Fluid Total Protein Vancomycin Trough Rheumatoid Factor Complement C4 Miscellaneous Test Flexitest 1 H Crossmatch 10/13/16 10/13/16 10/13/16 18:09 Unknown Unknown WBC 23.4 H RBC 2.83 L Hgb 8.7 L Hct 26.1 L MCV MCH MCHC RDW 18.1 H Plt Count Lymph % (Auto) [place] % (Auto) Lymph # [place] # Baso # Seg Neutrophils % Seg Neuts % (Manual) Lymphocytes % (Manual) Monocytes % (Manual) Eosinophils % (Manual) Basophils % (Manual) Nucleated RBC % Seg Neutrophils # Seg Neutrophils # Man Lymphocytes # (Manual) Monocytes # (Manual) Eosinophils # (Manual) PT INR Fibrinogen dRVVT Confirm Interp Factor V Activity POC ABG pH POC ABG pCO2 POC ABG pO2 ABG pO2 ABG HCO3 ABG Base Excess ABG Hemoglobin Oxyhemoglobin Sodium Potassium Chloride 95.8 L Carbon Dioxide BUN 82 H Creatinine 2.6 H Glucose 152 H POC Glucose 166 H Lactic Acid Calcium Phosphorus Magnesium Direct Bilirubin AST ALT Alkaline Phosphatase Lactate Dehydrogenase Troponin T C-Reactive Protein Total Protein Albumin Prealbumin Triglycerides Cholesterol LDL Cholesterol Direct HDL Cholesterol Urine pH Urine WBC (Auto) Urine Creatinine Urine Total Protein Fluid Total Protein Vancomycin Trough Rheumatoid Factor Complement C4 Miscellaneous Test Crossmatch 10/14/16 10/14/16 10/14/16 05:38 06:35 08:10 WBC 20.7 H RBC 2.81 L Hgb 8.4 L Hct 27.2 L MCV MCH MCHC RDW 19.4 H Plt Count Lymph % (Auto) [place] % (Auto) Lymph # [place] # Baso # Seg Neutrophils % Seg Neuts % (Manual) Lymphocytes % (Manual) Monocytes % (Manual) Eosinophils % (Manual) Basophils % (Manual) Nucleated RBC % Seg Neutrophils # Seg Neutrophils # Man Lymphocytes # (Manual) Monocytes # (Manual) Eosinophils # (Manual) PT INR Fibrinogen dRVVT Confirm Interp Factor V Activity POC ABG pH POC ABG pCO2 POC ABG pO2 ABG pO2 ABG HCO3 ABG Base Excess ABG Hemoglobin Oxyhemoglobin Sodium Potassium Chloride Carbon Dioxide BUN 58 H Creatinine 1.9 H Glucose 169 H POC Glucose 195 H Lactic Acid Calcium Phosphorus Magnesium Direct Bilirubin AST ALT Alkaline Phosphatase Lactate Dehydrogenase Troponin T C-Reactive Protein Total Protein Albumin Prealbumin Triglycerides Cholesterol LDL Cholesterol Direct HDL Cholesterol Urine pH Urine WBC (Auto) Urine Creatinine Urine Total Protein Fluid Total Protein Vancomycin Trough Rheumatoid Factor Complement C4 Miscellaneous Test Crossmatch 10/14/16 10/14/16 10/14/16 11:44 17:13 23:28 WBC RBC Hgb Hct MCV MCH MCHC RDW Plt Count Lymph % (Auto) [place] % (Auto) Lymph # [place] # Baso # Seg Neutrophils % Seg Neuts % (Manual) Lymphocytes % (Manual) Monocytes % (Manual) Eosinophils % (Manual) Basophils % (Manual) Nucleated RBC % Seg Neutrophils # Seg Neutrophils # Man Lymphocytes # (Manual) Monocytes # (Manual) Eosinophils # (Manual) PT INR Fibrinogen dRVVT Confirm Interp Factor V Activity POC ABG pH POC ABG pCO2 POC ABG pO2 ABG pO2 ABG HCO3 ABG Base Excess ABG Hemoglobin Oxyhemoglobin Sodium Potassium Chloride Carbon Dioxide BUN Creatinine Glucose POC Glucose 174 H 121 H 151 H Lactic Acid Calcium Phosphorus Magnesium Direct Bilirubin AST ALT Alkaline Phosphatase Lactate Dehydrogenase Troponin T C-Reactive Protein Total Protein Albumin Prealbumin Triglycerides Cholesterol LDL Cholesterol Direct HDL Cholesterol Urine pH Urine WBC (Auto) Urine Creatinine Urine Total Protein Fluid Total Protein Vancomycin Trough Rheumatoid Factor Complement C4 Miscellaneous Test Crossmatch 10/15/16 10/15/16 10/15/16 05:06 12:26 17:48 WBC RBC Hgb Hct MCV MCH MCHC RDW Plt Count Lymph % (Auto) [place] % (Auto) Lymph # [place] # Baso # Seg Neutrophils % Seg Neuts % (Manual) Lymphocytes % (Manual) Monocytes % (Manual) Eosinophils % (Manual) Basophils % (Manual) Nucleated RBC % Seg Neutrophils # Seg Neutrophils # Man Lymphocytes # (Manual) Monocytes # (Manual) Eosinophils # (Manual) PT INR Fibrinogen dRVVT Confirm Interp Factor V Activity POC ABG pH POC ABG pCO2 POC ABG pO2 ABG pO2 ABG HCO3 ABG Base Excess ABG Hemoglobin Oxyhemoglobin Sodium Potassium Chloride Carbon Dioxide BUN Creatinine Glucose POC Glucose 151 H 149 H 153 H Lactic Acid Calcium Phosphorus Magnesium Direct Bilirubin AST ALT Alkaline Phosphatase Lactate Dehydrogenase Troponin T C-Reactive Protein Total Protein Albumin Prealbumin Triglycerides Cholesterol LDL Cholesterol Direct HDL Cholesterol Urine pH Urine WBC (Auto) Urine Creatinine Urine Total Protein Fluid Total Protein Vancomycin Trough Rheumatoid Factor Complement C4 Miscellaneous Test Crossmatch 10/15/16 10/15/16 10/16/16 Unknown Unknown 00:02 WBC 23.4 H RBC 2.78 L Hgb 8.5 L Hct 25.7 L MCV MCH MCHC RDW 18.7 H Plt Count Lymph % (Auto) [place] % (Auto) Lymph # [place] # Baso # Seg Neutrophils % Seg Neuts % (Manual) Lymphocytes % (Manual) Monocytes % (Manual) Eosinophils % (Manual) Basophils % (Manual) Nucleated RBC % Seg Neutrophils # Seg Neutrophils # Man Lymphocytes # (Manual) Monocytes # (Manual) Eosinophils # (Manual) PT INR Fibrinogen dRVVT Confirm Interp Factor V Activity POC ABG pH POC ABG pCO2 POC ABG pO2 ABG pO2 ABG HCO3 ABG Base Excess ABG Hemoglobin Oxyhemoglobin Sodium Potassium Chloride Carbon Dioxide BUN 73 H Creatinine 2.3 H Glucose 120 H POC Glucose 137 H Lactic Acid Calcium Phosphorus Magnesium Direct Bilirubin AST ALT Alkaline Phosphatase Lactate Dehydrogenase Troponin T C-Reactive Protein Total Protein Albumin Prealbumin Triglycerides Cholesterol LDL Cholesterol Direct HDL Cholesterol Urine pH Urine WBC (Auto) Urine Creatinine Urine Total Protein Fluid Total Protein Vancomycin Trough Rheumatoid Factor Complement C4 Miscellaneous Test Crossmatch 10/16/16 10/16/16 10/16/16 05:44 06:25 06:25 WBC 22.5 H RBC 2.76 L Hgb 8.3 L Hct 25.2 L MCV MCH MCHC RDW 18.3 H Plt Count Lymph % (Auto) [place] % (Auto) Lymph # [place] # Baso # Seg Neutrophils % Seg Neuts % (Manual) Lymphocytes % (Manual) Monocytes % (Manual) Eosinophils % (Manual) Basophils % (Manual) Nucleated RBC % Seg Neutrophils # Seg Neutrophils # Man Lymphocytes # (Manual) Monocytes # (Manual) Eosinophils # (Manual) PT INR Fibrinogen dRVVT Confirm Interp Factor V Activity POC ABG pH POC ABG pCO2 POC ABG pO2 ABG pO2 ABG HCO3 ABG Base Excess ABG Hemoglobin Oxyhemoglobin Sodium Potassium Chloride Carbon Dioxide BUN 92 H Creatinine 3.0 H Glucose 138 H POC Glucose 110 H Lactic Acid Calcium Phosphorus Magnesium Direct Bilirubin AST ALT Alkaline Phosphatase Lactate Dehydrogenase Troponin T C-Reactive Protein Total Protein Albumin Prealbumin Triglycerides Cholesterol LDL Cholesterol Direct HDL Cholesterol Urine pH Urine WBC (Auto) Urine Creatinine Urine Total Protein Fluid Total Protein Vancomycin Trough Rheumatoid Factor Complement C4 Miscellaneous Test Crossmatch 10/16/16 10/16/16 10/16/16 11:27 11:48 17:36 WBC RBC Hgb Hct MCV MCH MCHC RDW Plt Count Lymph % (Auto) [place] % (Auto) Lymph # [place] # Baso # Seg Neutrophils % Seg Neuts % (Manual) Lymphocytes % (Manual) Monocytes % (Manual) Eosinophils % (Manual) Basophils % (Manual) Nucleated RBC % Seg Neutrophils # Seg Neutrophils # Man Lymphocytes # (Manual) Monocytes # (Manual) Eosinophils # (Manual) PT INR Fibrinogen dRVVT Confirm Interp Factor V Activity POC ABG pH 7.582 H POC ABG pCO2 27.4 L POC ABG pO2 110 H ABG pO2 ABG HCO3 ABG Base Excess ABG Hemoglobin Oxyhemoglobin Sodium Potassium Chloride Carbon Dioxide BUN Creatinine Glucose POC Glucose 121 H 133 H Lactic Acid Calcium Phosphorus Magnesium Direct Bilirubin AST ALT Alkaline Phosphatase Lactate Dehydrogenase Troponin T C-Reactive Protein Total Protein Albumin Prealbumin Triglycerides Cholesterol LDL Cholesterol Direct HDL Cholesterol Urine pH Urine WBC (Auto) Urine Creatinine Urine Total Protein Fluid Total Protein Vancomycin Trough Rheumatoid Factor Complement C4 Miscellaneous Test Crossmatch 10/16/16 10/17/16 10/17/16 20:48 04:24 04:24 WBC 21.4 H RBC 2.72 L Hgb 8.0 L Hct 25.2 L MCV MCH MCHC RDW 18.0 H Plt Count Lymph % (Auto) [place] % (Auto) Lymph # [place] # Baso # Seg Neutrophils % Seg Neuts % (Manual) Lymphocytes % (Manual) Monocytes % (Manual) Eosinophils % (Manual) Basophils % (Manual) Nucleated RBC % Seg Neutrophils # Seg Neutrophils # Man Lymphocytes # (Manual) Monocytes # (Manual) Eosinophils # (Manual) PT INR Fibrinogen dRVVT Confirm Interp Factor V Activity POC ABG pH 7.561 H POC ABG pCO2 24.4 L POC ABG pO2 77 L ABG pO2 ABG HCO3 ABG Base Excess ABG Hemoglobin Oxyhemoglobin Sodium 148 H Potassium Chloride Carbon Dioxide BUN 104 H Creatinine 3.0 H Glucose 149 H POC Glucose Lactic Acid Calcium Phosphorus Magnesium Direct Bilirubin AST ALT Alkaline Phosphatase 138 H Lactate Dehydrogenase Troponin T C-Reactive Protein Total Protein 6.2 L Albumin 1.5 L Prealbumin Triglycerides Cholesterol LDL Cholesterol Direct HDL Cholesterol Urine pH Urine WBC (Auto) Urine Creatinine Urine Total Protein Fluid Total Protein Vancomycin Trough Rheumatoid Factor Complement C4 Miscellaneous Test Crossmatch 10/17/16 10/17/16 10/17/16 06:02 12:17 17:14 WBC RBC Hgb Hct MCV MCH MCHC RDW Plt Count Lymph % (Auto) [place] % (Auto) Lymph # [place] # Baso # Seg Neutrophils % Seg Neuts % (Manual) Lymphocytes % (Manual) Monocytes % (Manual) Eosinophils % (Manual) Basophils % (Manual) Nucleated RBC % Seg Neutrophils # Seg Neutrophils # Man Lymphocytes # (Manual) Monocytes # (Manual) Eosinophils # (Manual) PT INR Fibrinogen dRVVT Confirm Interp Factor V Activity POC ABG pH POC ABG pCO2 POC ABG pO2 ABG pO2 ABG HCO3 ABG Base Excess ABG Hemoglobin Oxyhemoglobin Sodium Potassium Chloride Carbon Dioxide BUN Creatinine Glucose POC Glucose 170 H 167 H 126 H Lactic Acid Calcium Phosphorus Magnesium Direct Bilirubin AST ALT Alkaline Phosphatase Lactate Dehydrogenase Troponin T C-Reactive Protein Total Protein Albumin Prealbumin Triglycerides Cholesterol LDL Cholesterol Direct HDL Cholesterol Urine pH Urine WBC (Auto) Urine Creatinine Urine Total Protein Fluid Total Protein Vancomycin Trough Rheumatoid Factor Complement C4 Miscellaneous Test Crossmatch 10/17/16 10/18/16 10/18/16 23:17 04:00 04:00 WBC 20.7 H RBC 2.47 L Hgb 7.4 L Hct 22.9 L MCV MCH MCHC RDW 17.5 H Plt Count Lymph % (Auto) [place] % (Auto) Lymph # [place] # Baso # Seg Neutrophils % Seg Neuts % (Manual) Lymphocytes % (Manual) Monocytes % (Manual) Eosinophils % (Manual) Basophils % (Manual) Nucleated RBC % Seg Neutrophils # Seg Neutrophils # Man Lymphocytes # (Manual) Monocytes # (Manual) Eosinophils # (Manual) PT INR Fibrinogen dRVVT Confirm Interp Factor V Activity POC ABG pH POC ABG pCO2 POC ABG pO2 ABG pO2 ABG HCO3 ABG Base Excess ABG Hemoglobin Oxyhemoglobin Sodium 149 H Potassium Chloride 107.9 H Carbon Dioxide 20 L BUN 117 H Creatinine 3.2 H Glucose 119 H POC Glucose 121 H Lactic Acid Calcium Phosphorus Magnesium Direct Bilirubin AST ALT Alkaline Phosphatase Lactate Dehydrogenase Troponin T C-Reactive Protein Total Protein Albumin Prealbumin Triglycerides Cholesterol LDL Cholesterol Direct HDL Cholesterol Urine pH Urine WBC (Auto) Urine Creatinine Urine Total Protein Fluid Total Protein Vancomycin Trough Rheumatoid Factor Complement C4 Miscellaneous Test Crossmatch 10/18/16 10/18/16 10/18/16 05:23 10:46 17:30 WBC RBC Hgb Hct MCV MCH MCHC RDW Plt Count Lymph % (Auto) [place] % (Auto) Lymph # [place] # Baso # Seg Neutrophils % Seg Neuts % (Manual) Lymphocytes % (Manual) Monocytes % (Manual) Eosinophils % (Manual) Basophils % (Manual) Nucleated RBC % Seg Neutrophils # Seg Neutrophils # Man Lymphocytes # (Manual) Monocytes # (Manual) Eosinophils # (Manual) PT INR Fibrinogen dRVVT Confirm Interp Factor V Activity POC ABG pH POC ABG pCO2 POC ABG pO2 ABG pO2 ABG HCO3 ABG Base Excess ABG Hemoglobin Oxyhemoglobin Sodium Potassium Chloride Carbon Dioxide BUN Creatinine Glucose POC Glucose 119 H 155 H 124 H Lactic Acid Calcium Phosphorus Magnesium Direct Bilirubin AST ALT Alkaline Phosphatase Lactate Dehydrogenase Troponin T C-Reactive Protein Total Protein Albumin Prealbumin Triglycerides Cholesterol LDL Cholesterol Direct HDL Cholesterol Urine pH Urine WBC (Auto) Urine Creatinine Urine Total Protein Fluid Total Protein Vancomycin Trough Rheumatoid Factor Complement C4 Miscellaneous Test Crossmatch 10/19/16 10/19/16 10/19/16 04:00 04:00 05:25 WBC 17.4 H RBC 2.54 L Hgb 7.7 L Hct 23.6 L MCV MCH MCHC RDW 17.3 H Plt Count Lymph % (Auto) [place] % (Auto) Lymph # [place] # Baso # Seg Neutrophils % Seg Neuts % (Manual) Lymphocytes % (Manual) Monocytes % (Manual) Eosinophils % (Manual) Basophils % (Manual) Nucleated RBC % Seg Neutrophils # Seg Neutrophils # Man Lymphocytes # (Manual) Monocytes # (Manual) Eosinophils # (Manual) PT INR Fibrinogen dRVVT Confirm Interp Factor V Activity POC ABG pH POC ABG pCO2 POC ABG pO2 ABG pO2 ABG HCO3 ABG Base Excess ABG Hemoglobin Oxyhemoglobin Sodium Potassium Chloride Carbon Dioxide BUN 72 H Creatinine 2.1 H Glucose 116 H POC Glucose 119 H Lactic Acid Calcium Phosphorus Magnesium Direct Bilirubin AST ALT Alkaline Phosphatase Lactate Dehydrogenase Troponin T C-Reactive Protein Total Protein Albumin Prealbumin Triglycerides Cholesterol LDL Cholesterol Direct HDL Cholesterol Urine pH Urine WBC (Auto) Urine Creatinine Urine Total Protein Fluid Total Protein Vancomycin Trough Rheumatoid Factor Complement C4 Miscellaneous Test Crossmatch 10/19/16 10/19/16 10/20/16 11:46 23:59 06:00 WBC RBC Hgb Hct MCV MCH MCHC RDW Plt Count Lymph % (Auto) [place] % (Auto) Lymph # [place] # Baso # Seg Neutrophils % Seg Neuts % (Manual) Lymphocytes % (Manual) Monocytes % (Manual) Eosinophils % (Manual) Basophils % (Manual) Nucleated RBC % Seg Neutrophils # Seg Neutrophils # Man Lymphocytes # (Manual) Monocytes # (Manual) Eosinophils # (Manual) PT INR Fibrinogen dRVVT Confirm Interp Factor V Activity POC ABG pH POC ABG pCO2 POC ABG pO2 ABG pO2 ABG HCO3 ABG Base Excess ABG Hemoglobin Oxyhemoglobin Sodium Potassium Chloride Carbon Dioxide 17 L BUN 94 H Creatinine 2.7 H Glucose POC Glucose 116 H 117 H Lactic Acid Calcium Phosphorus Magnesium Direct Bilirubin AST ALT Alkaline Phosphatase Lactate Dehydrogenase Troponin T C-Reactive Protein Total Protein Albumin Prealbumin Triglycerides Cholesterol LDL Cholesterol Direct HDL Cholesterol Urine pH Urine WBC (Auto) Urine Creatinine Urine Total Protein Fluid Total Protein Vancomycin Trough Rheumatoid Factor Complement C4 Miscellaneous Test Crossmatch 10/20/16 10/20/16 10/20/16 06:00 11:49 16:00 WBC 19.7 H RBC 2.51 L Hgb 7.7 L Hct 23.5 L MCV MCH MCHC RDW 17.5 H Plt Count Lymph % (Auto) [place] % (Auto) Lymph # [place] # Baso # Seg Neutrophils % Seg Neuts % (Manual) Lymphocytes % (Manual) Monocytes % (Manual) Eosinophils % (Manual) Basophils % (Manual) Nucleated RBC % Seg Neutrophils # Seg Neutrophils # Man Lymphocytes # (Manual) Monocytes # (Manual) Eosinophils # (Manual) PT INR Fibrinogen dRVVT Confirm Interp Factor V Activity POC ABG pH POC ABG pCO2 POC ABG pO2 ABG pO2 ABG HCO3 ABG Base Excess ABG Hemoglobin Oxyhemoglobin Sodium Potassium Chloride Carbon Dioxide BUN Creatinine Glucose POC Glucose 117 H Lactic Acid Calcium Phosphorus Magnesium Direct Bilirubin AST ALT Alkaline Phosphatase Lactate Dehydrogenase Troponin T C-Reactive Protein Total Protein Albumin Prealbumin Triglycerides Cholesterol LDL Cholesterol Direct HDL Cholesterol Urine pH Urine WBC (Auto) Urine Creatinine Urine Total Protein Fluid Total Protein Vancomycin Trough Rheumatoid Factor Complement C4 Miscellaneous Test Flexitest 1 H Crossmatch 10/20/16 10/20/16 10/21/16 18:36 23:39 04:00 WBC RBC Hgb Hct MCV MCH MCHC RDW Plt Count Lymph % (Auto) [place] % (Auto) Lymph # [place] # Baso # Seg Neutrophils % Seg Neuts % (Manual) Lymphocytes % (Manual) Monocytes % (Manual) Eosinophils % (Manual) Basophils % (Manual) Nucleated RBC % Seg Neutrophils # Seg Neutrophils # Man Lymphocytes # (Manual) Monocytes # (Manual) Eosinophils # (Manual) PT INR Fibrinogen dRVVT Confirm Interp Factor V Activity POC ABG pH POC ABG pCO2 POC ABG pO2 ABG pO2 ABG HCO3 ABG Base Excess ABG Hemoglobin Oxyhemoglobin Sodium Potassium 5.4 H D Chloride Carbon Dioxide 15 L BUN 110 H Creatinine 3.0 H Glucose POC Glucose 127 H 114 H Lactic Acid Calcium Phosphorus Magnesium Direct Bilirubin AST ALT Alkaline Phosphatase Lactate Dehydrogenase Troponin T C-Reactive Protein Total Protein Albumin Prealbumin Triglycerides Cholesterol LDL Cholesterol Direct HDL Cholesterol Urine pH Urine WBC (Auto) Urine Creatinine Urine Total Protein Fluid Total Protein Vancomycin Trough Rheumatoid Factor Complement C4 Miscellaneous Test Crossmatch 10/21/16 10/21/16 10/22/16 05:54 23:46 05:18 WBC RBC Hgb Hct MCV MCH MCHC RDW Plt Count Lymph % (Auto) [place] % (Auto) Lymph # [place] # Baso # Seg Neutrophils % Seg Neuts % (Manual) Lymphocytes % (Manual) Monocytes % (Manual) Eosinophils % (Manual) Basophils % (Manual) Nucleated RBC % Seg Neutrophils # Seg Neutrophils # Man Lymphocytes # (Manual) Monocytes # (Manual) Eosinophils # (Manual) PT INR Fibrinogen dRVVT Confirm Interp Factor V Activity POC ABG pH POC ABG pCO2 POC ABG pO2 ABG pO2 ABG HCO3 ABG Base Excess ABG Hemoglobin Oxyhemoglobin Sodium Potassium Chloride Carbon Dioxide BUN Creatinine Glucose POC Glucose 119 H 108 H 109 H Lactic Acid Calcium Phosphorus Magnesium Direct Bilirubin AST ALT Alkaline Phosphatase Lactate Dehydrogenase Troponin T C-Reactive Protein Total Protein Albumin Prealbumin Triglycerides Cholesterol LDL Cholesterol Direct HDL Cholesterol Urine pH Urine WBC (Auto) Urine Creatinine Urine Total Protein Fluid Total Protein Vancomycin Trough Rheumatoid Factor Complement C4 Miscellaneous Test Crossmatch 10/22/16 10/22/16 10/22/16 06:40 06:40 06:40 WBC 14.0 H RBC 2.03 L Hgb 7.0 L Hct 20.5 L MCV 98 H MCH 34 H MCHC 35 H RDW 17.8 H Plt Count Lymph % (Auto) [place] % (Auto) 9.9 H Lymph # [place] # 1.4 H Baso # 0.2 H Seg Neutrophils % 72.0 H Seg Neuts % (Manual) Lymphocytes % (Manual) Monocytes % (Manual) Eosinophils % (Manual) Basophils % (Manual) Nucleated RBC % Seg Neutrophils # 10.0 H Seg Neutrophils # Man Lymphocytes # (Manual) Monocytes # (Manual) Eosinophils # (Manual) PT INR Fibrinogen dRVVT Confirm Interp Factor V Activity POC ABG pH POC ABG pCO2 POC ABG pO2 ABG pO2 ABG HCO3 ABG Base Excess ABG Hemoglobin Oxyhemoglobin Sodium 130 L D Potassium Chloride 92.4 L Carbon Dioxide 20 L BUN 50 H Creatinine 1.6 H Glucose 589 H* POC Glucose Lactic Acid Calcium 7.8 L D Phosphorus Magnesium 1.60 L Direct Bilirubin AST ALT Alkaline Phosphatase Lactate Dehydrogenase Troponin T C-Reactive Protein Total Protein Albumin Prealbumin Triglycerides Cholesterol LDL Cholesterol Direct HDL Cholesterol Urine pH Urine WBC (Auto) Urine Creatinine Urine Total Protein Fluid Total Protein Vancomycin Trough Rheumatoid Factor Complement C4 Miscellaneous Test Crossmatch 10/22/16 10/22/16 10/22/16 11:39 16:44 23:36 WBC RBC Hgb Hct MCV MCH MCHC RDW Plt Count Lymph % (Auto) [place] % (Auto) Lymph # [place] # Baso # Seg Neutrophils % Seg Neuts % (Manual) Lymphocytes % (Manual) Monocytes % (Manual) Eosinophils % (Manual) Basophils % (Manual) Nucleated RBC % Seg Neutrophils # Seg Neutrophils # Man Lymphocytes # (Manual) Monocytes # (Manual) Eosinophils # (Manual) PT INR Fibrinogen dRVVT Confirm Interp Factor V Activity POC ABG pH POC ABG pCO2 POC ABG pO2 ABG pO2 ABG HCO3 ABG Base Excess ABG Hemoglobin Oxyhemoglobin Sodium Potassium Chloride Carbon Dioxide BUN Creatinine Glucose POC Glucose 142 H 163 H 123 H Lactic Acid Calcium Phosphorus Magnesium Direct Bilirubin AST ALT Alkaline Phosphatase Lactate Dehydrogenase Troponin T C-Reactive Protein Total Protein Albumin Prealbumin Triglycerides Cholesterol LDL Cholesterol Direct HDL Cholesterol Urine pH Urine WBC (Auto) Urine Creatinine Urine Total Protein Fluid Total Protein Vancomycin Trough Rheumatoid Factor Complement C4 Miscellaneous Test Crossmatch 10/23/16 10/23/16 10/23/16 04:58 06:00 12:12 WBC RBC Hgb Hct MCV MCH MCHC RDW Plt Count Lymph % (Auto) [place] % (Auto) Lymph # [place] # Baso # Seg Neutrophils % Seg Neuts % (Manual) Lymphocytes % (Manual) Monocytes % (Manual) Eosinophils % (Manual) Basophils % (Manual) Nucleated RBC % Seg Neutrophils # Seg Neutrophils # Man Lymphocytes # (Manual) Monocytes # (Manual) Eosinophils # (Manual) PT INR Fibrinogen dRVVT Confirm Interp Factor V Activity POC ABG pH POC ABG pCO2 POC ABG pO2 ABG pO2 ABG HCO3 ABG Base Excess ABG Hemoglobin Oxyhemoglobin Sodium 133 L Potassium 3.5 L Chloride 96.1 L Carbon Dioxide 18 L BUN 76 H Creatinine 2.1 H Glucose POC Glucose 133 H 138 H Lactic Acid Calcium 8.3 L Phosphorus Magnesium Direct Bilirubin AST ALT Alkaline Phosphatase Lactate Dehydrogenase Troponin T C-Reactive Protein Total Protein Albumin Prealbumin Triglycerides Cholesterol LDL Cholesterol Direct HDL Cholesterol Urine pH Urine WBC (Auto) Urine Creatinine Urine Total Protein Fluid Total Protein Vancomycin Trough Rheumatoid Factor Complement C4 Miscellaneous Test Crossmatch 10/23/16 10/23/16 10/24/16 16:53 23:37 04:00 WBC RBC Hgb Hct MCV MCH MCHC RDW Plt Count Lymph % (Auto) [place] % (Auto) Lymph # [place] # Baso # Seg Neutrophils % Seg Neuts % (Manual) Lymphocytes % (Manual) Monocytes % (Manual) Eosinophils % (Manual) Basophils % (Manual) Nucleated RBC % Seg Neutrophils # Seg Neutrophils # Man Lymphocytes # (Manual) Monocytes # (Manual) Eosinophils # (Manual) PT INR Fibrinogen dRVVT Confirm Interp Factor V Activity POC ABG pH POC ABG pCO2 POC ABG pO2 ABG pO2 ABG HCO3 ABG Base Excess ABG Hemoglobin Oxyhemoglobin Sodium 131 L Potassium Chloride 94.5 L Carbon Dioxide 19 L BUN 97 H Creatinine 2.6 H Glucose 110 H POC Glucose 125 H 123 H Lactic Acid Calcium 8.3 L Phosphorus Magnesium Direct Bilirubin AST ALT Alkaline Phosphatase Lactate Dehydrogenase Troponin T C-Reactive Protein Total Protein Albumin Prealbumin Triglycerides Cholesterol LDL Cholesterol Direct HDL Cholesterol Urine pH Urine WBC (Auto) Urine Creatinine Urine Total Protein Fluid Total Protein Vancomycin Trough Rheumatoid Factor Complement C4 Miscellaneous Test Crossmatch 10/24/16 10/24/16 10/24/16 07:49 11:39 17:52 WBC RBC Hgb 6.0 L Hct 19.7 L* MCV MCH MCHC RDW Plt Count Lymph % (Auto) [place] % (Auto) Lymph # [place] # Baso # Seg Neutrophils % Seg Neuts % (Manual) Lymphocytes % (Manual) Monocytes % (Manual) Eosinophils % (Manual) Basophils % (Manual) Nucleated RBC % Seg Neutrophils # Seg Neutrophils # Man Lymphocytes # (Manual) Monocytes # (Manual) Eosinophils # (Manual) PT INR Fibrinogen dRVVT Confirm Interp Factor V Activity POC ABG pH POC ABG pCO2 POC ABG pO2 ABG pO2 ABG HCO3 ABG Base Excess ABG Hemoglobin Oxyhemoglobin Sodium Potassium Chloride Carbon Dioxide BUN Creatinine Glucose POC Glucose 106 H 158 H Lactic Acid Calcium Phosphorus Magnesium Direct Bilirubin AST ALT Alkaline Phosphatase Lactate Dehydrogenase Troponin T C-Reactive Protein Total Protein Albumin Prealbumin Triglycerides Cholesterol LDL Cholesterol Direct HDL Cholesterol Urine pH Urine WBC (Auto) Urine Creatinine Urine Total Protein Fluid Total Protein Vancomycin Trough Rheumatoid Factor Complement C4 Miscellaneous Test Crossmatch 10/24/16 10/24/16 10/24/16 20:00 22:27 Unknown WBC RBC Hgb 9.4 L D Hct 27.5 L D MCV MCH MCHC RDW Plt Count Lymph % (Auto) [place] % (Auto) Lymph # [place] # Baso # Seg Neutrophils % Seg Neuts % (Manual) Lymphocytes % (Manual) Monocytes % (Manual) Eosinophils % (Manual) Basophils % (Manual) Nucleated RBC % Seg Neutrophils # Seg Neutrophils # Man Lymphocytes # (Manual) Monocytes # (Manual) Eosinophils # (Manual) PT INR Fibrinogen dRVVT Confirm Interp Factor V Activity POC ABG pH POC ABG pCO2 POC ABG pO2 ABG pO2 ABG HCO3 ABG Base Excess ABG Hemoglobin Oxyhemoglobin Sodium Potassium Chloride Carbon Dioxide BUN Creatinine Glucose POC Glucose 125 H Lactic Acid Calcium Phosphorus Magnesium Direct Bilirubin AST ALT Alkaline Phosphatase Lactate Dehydrogenase Troponin T C-Reactive Protein Total Protein Albumin Prealbumin Triglycerides Cholesterol LDL Cholesterol Direct HDL Cholesterol Urine pH Urine WBC (Auto) Urine Creatinine Urine Total Protein Fluid Total Protein Vancomycin Trough Rheumatoid Factor Complement C4 Miscellaneous Test Crossmatch See Detail 10/25/16 10/25/16 10/25/16 04:00 04:00 04:00 WBC 14.2 H RBC 2.98 L Hgb 9.0 L Hct 26.2 L MCV MCH MCHC RDW 16.6 H Plt Count Lymph % (Auto) [place] % (Auto) 10.7 H Lymph # [place] # 1.5 H Baso # Seg Neutrophils % 73.6 H Seg Neuts % (Manual) Lymphocytes % (Manual) Monocytes % (Manual) Eosinophils % (Manual) Basophils % (Manual) Nucleated RBC % Seg Neutrophils # 10.5 H Seg Neutrophils # Man Lymphocytes # (Manual) Monocytes # (Manual) Eosinophils # (Manual) PT INR Fibrinogen dRVVT Confirm Interp Factor V Activity POC ABG pH POC ABG pCO2 POC ABG pO2 ABG pO2 ABG HCO3 ABG Base Excess ABG Hemoglobin Oxyhemoglobin Sodium 132 L Potassium Chloride 94.7 L Carbon Dioxide BUN 51 H Creatinine 1.6 H Glucose 130 H POC Glucose Lactic Acid Calcium 8.3 L Phosphorus 1.60 L D Magnesium Direct Bilirubin AST ALT Alkaline Phosphatase Lactate Dehydrogenase Troponin T C-Reactive Protein Total Protein Albumin Prealbumin Triglycerides Cholesterol LDL Cholesterol Direct HDL Cholesterol Urine pH Urine WBC (Auto) Urine Creatinine Urine Total Protein Fluid Total Protein Vancomycin Trough Rheumatoid Factor Complement C4 Miscellaneous Test Crossmatch 10/25/16 10/25/16 10/25/16 04:32 11:48 17:22 WBC RBC Hgb Hct MCV MCH MCHC RDW Plt Count Lymph % (Auto) [place] % (Auto) Lymph # [place] # Baso # Seg Neutrophils % Seg Neuts % (Manual) Lymphocytes % (Manual) Monocytes % (Manual) Eosinophils % (Manual) Basophils % (Manual) Nucleated RBC % Seg Neutrophils # Seg Neutrophils # Man Lymphocytes # (Manual) Monocytes # (Manual) Eosinophils # (Manual) PT INR Fibrinogen dRVVT Confirm Interp Factor V Activity POC ABG pH POC ABG pCO2 POC ABG pO2 ABG pO2 ABG HCO3 ABG Base Excess ABG Hemoglobin Oxyhemoglobin Sodium Potassium Chloride Carbon Dioxide BUN Creatinine Glucose POC Glucose 124 H 171 H 120 H Lactic Acid Calcium Phosphorus Magnesium Direct Bilirubin AST ALT Alkaline Phosphatase Lactate Dehydrogenase Troponin T C-Reactive Protein Total Protein Albumin Prealbumin Triglycerides Cholesterol LDL Cholesterol Direct HDL Cholesterol Urine pH Urine WBC (Auto) Urine Creatinine Urine Total Protein Fluid Total Protein Vancomycin Trough Rheumatoid Factor Complement C4 Miscellaneous Test Crossmatch 10/26/16 10/26/16 10/26/16 04:54 07:06 07:06 WBC 16.9 H RBC 3.06 L Hgb 9.1 L Hct 26.9 L MCV MCH MCHC RDW 16.9 H Plt Count Lymph % (Auto) [place] % (Auto) Lymph # [place] # Baso # Seg Neutrophils % Seg Neuts % (Manual) 71.0 H Lymphocytes % (Manual) 5.0 L Monocytes % (Manual) 12.0 H Eosinophils % (Manual) Basophils % (Manual) Nucleated RBC % Seg Neutrophils # Seg Neutrophils # Man 12.0 H Lymphocytes # (Manual) 0.8 L Monocytes # (Manual) 2.0 H Eosinophils # (Manual) PT INR Fibrinogen dRVVT Confirm Interp Factor V Activity POC ABG pH POC ABG pCO2 POC ABG pO2 ABG pO2 ABG HCO3 ABG Base Excess ABG Hemoglobin Oxyhemoglobin Sodium 135 L Potassium Chloride 97.1 L Carbon Dioxide BUN 73 H Creatinine 2.2 H Glucose 117 H POC Glucose 123 H Lactic Acid Calcium Phosphorus 1.70 L Magnesium Direct Bilirubin AST ALT Alkaline Phosphatase Lactate Dehydrogenase Troponin T C-Reactive Protein Total Protein Albumin Prealbumin Triglycerides Cholesterol LDL Cholesterol Direct HDL Cholesterol Urine pH Urine WBC (Auto) Urine Creatinine Urine Total Protein Fluid Total Protein Vancomycin Trough Rheumatoid Factor Complement C4 Miscellaneous Test Crossmatch 10/26/16 10/26/16 10/26/16 12:12 17:29 23:42 WBC RBC Hgb Hct MCV MCH MCHC RDW Plt Count Lymph % (Auto) [place] % (Auto) Lymph # [place] # Baso # Seg Neutrophils % Seg Neuts % (Manual) Lymphocytes % (Manual) Monocytes % (Manual) Eosinophils % (Manual) Basophils % (Manual) Nucleated RBC % Seg Neutrophils # Seg Neutrophils # Man Lymphocytes # (Manual) Monocytes # (Manual) Eosinophils # (Manual) PT INR Fibrinogen dRVVT Confirm Interp Factor V Activity POC ABG pH POC ABG pCO2 POC ABG pO2 ABG pO2 ABG HCO3 ABG Base Excess ABG Hemoglobin Oxyhemoglobin Sodium Potassium Chloride Carbon Dioxide BUN Creatinine Glucose POC Glucose 126 H 161 H 118 H Lactic Acid Calcium Phosphorus Magnesium Direct Bilirubin AST ALT Alkaline Phosphatase Lactate Dehydrogenase Troponin T C-Reactive Protein Total Protein Albumin Prealbumin Triglycerides Cholesterol LDL Cholesterol Direct HDL Cholesterol Urine pH Urine WBC (Auto) Urine Creatinine Urine Total Protein Fluid Total Protein Vancomycin Trough Rheumatoid Factor Complement C4 Miscellaneous Test Crossmatch 10/27/16 10/27/16 10/27/16 05:03 06:30 06:30 WBC 13.9 H RBC 3.09 L Hgb 9.2 L Hct 27.5 L MCV MCH MCHC RDW 17.0 H Plt Count Lymph % (Auto) [place] % (Auto) Lymph # [place] # Baso # Seg Neutrophils % Seg Neuts % (Manual) 78.0 H Lymphocytes % (Manual) Monocytes % (Manual) Eosinophils % (Manual) Basophils % (Manual) Nucleated RBC % 2.0 H Seg Neutrophils # Seg Neutrophils # Man 10.8 H Lymphocytes # (Manual) Monocytes # (Manual) 1.0 H Eosinophils # (Manual) PT INR Fibrinogen dRVVT Confirm Interp Factor V Activity POC ABG pH POC ABG pCO2 POC ABG pO2 ABG pO2 ABG HCO3 ABG Base Excess ABG Hemoglobin Oxyhemoglobin Sodium Potassium Chloride Carbon Dioxide BUN 40 H Creatinine 1.5 H Glucose 135 H POC Glucose 107 H Lactic Acid Calcium 8.3 L Phosphorus 1.30 L D Magnesium Direct Bilirubin AST ALT Alkaline Phosphatase Lactate Dehydrogenase Troponin T C-Reactive Protein Total Protein Albumin Prealbumin Triglycerides Cholesterol LDL Cholesterol Direct HDL Cholesterol Urine pH Urine WBC (Auto) Urine Creatinine Urine Total Protein Fluid Total Protein Vancomycin Trough Rheumatoid Factor Complement C4 Miscellaneous Test Crossmatch 10/27/16 10/27/16 10/27/16 13:27 18:07 23:40 WBC RBC Hgb Hct MCV MCH MCHC RDW Plt Count Lymph % (Auto) [place] % (Auto) Lymph # [place] # Baso # Seg Neutrophils % Seg Neuts % (Manual) Lymphocytes % (Manual) Monocytes % (Manual) Eosinophils % (Manual) Basophils % (Manual) Nucleated RBC % Seg Neutrophils # Seg Neutrophils # Man Lymphocytes # (Manual) Monocytes # (Manual) Eosinophils # (Manual) PT INR Fibrinogen dRVVT Confirm Interp Factor V Activity POC ABG pH POC ABG pCO2 POC ABG pO2 ABG pO2 ABG HCO3 ABG Base Excess ABG Hemoglobin Oxyhemoglobin Sodium Potassium Chloride Carbon Dioxide BUN Creatinine Glucose POC Glucose 117 H 121 H 118 H Lactic Acid Calcium Phosphorus Magnesium Direct Bilirubin AST ALT Alkaline Phosphatase Lactate Dehydrogenase Troponin T C-Reactive Protein Total Protein Albumin Prealbumin Triglycerides Cholesterol LDL Cholesterol Direct HDL Cholesterol Urine pH Urine WBC (Auto) Urine Creatinine Urine Total Protein Fluid Total Protein Vancomycin Trough Rheumatoid Factor Complement C4 Miscellaneous Test Crossmatch 10/28/16 10/28/16 10/28/16 05:48 06:45 06:45 WBC 14.7 H RBC 3.05 L Hgb 9.0 L Hct 26.9 L MCV MCH MCHC RDW 16.8 H Plt Count Lymph % (Auto) 8.2 L [place] % (Auto) 8.4 H Lymph # [place] # 1.2 H Baso # Seg Neutrophils % 81.9 H Seg Neuts % (Manual) Lymphocytes % (Manual) Monocytes % (Manual) Eosinophils % (Manual) Basophils % (Manual) Nucleated RBC % Seg Neutrophils # 12.1 H Seg Neutrophils # Man Lymphocytes # (Manual) Monocytes # (Manual) Eosinophils # (Manual) PT INR Fibrinogen dRVVT Confirm Interp Factor V Activity POC ABG pH POC ABG pCO2 POC ABG pO2 ABG pO2 ABG HCO3 ABG Base Excess ABG Hemoglobin Oxyhemoglobin Sodium Potassium Chloride Carbon Dioxide BUN 60 H Creatinine 1.9 H Glucose 120 H POC Glucose 114 H Lactic Acid Calcium Phosphorus Magnesium Direct Bilirubin AST ALT Alkaline Phosphatase Lactate Dehydrogenase Troponin T C-Reactive Protein Total Protein Albumin Prealbumin Triglycerides Cholesterol LDL Cholesterol Direct HDL Cholesterol Urine pH Urine WBC (Auto) Urine Creatinine Urine Total Protein Fluid Total Protein Vancomycin Trough Rheumatoid Factor Complement C4 Miscellaneous Test Crossmatch 10/28/16 10/28/16 10/29/16 17:08 23:50 05:10 WBC RBC Hgb Hct MCV MCH MCHC RDW Plt Count Lymph % (Auto) [place] % (Auto) Lymph # [place] # Baso # Seg Neutrophils % Seg Neuts % (Manual) Lymphocytes % (Manual) Monocytes % (Manual) Eosinophils % (Manual) Basophils % (Manual) Nucleated RBC % Seg Neutrophils # Seg Neutrophils # Man Lymphocytes # (Manual) Monocytes # (Manual) Eosinophils # (Manual) PT INR Fibrinogen dRVVT Confirm Interp Factor V Activity POC ABG pH POC ABG pCO2 POC ABG pO2 ABG pO2 ABG HCO3 ABG Base Excess ABG Hemoglobin Oxyhemoglobin Sodium Potassium Chloride Carbon Dioxide BUN Creatinine Glucose POC Glucose 109 H 110 H 124 H Lactic Acid Calcium Phosphorus Magnesium Direct Bilirubin AST ALT Alkaline Phosphatase Lactate Dehydrogenase Troponin T C-Reactive Protein Total Protein Albumin Prealbumin Triglycerides Cholesterol LDL Cholesterol Direct HDL Cholesterol Urine pH Urine WBC (Auto) Urine Creatinine Urine Total Protein Fluid Total Protein Vancomycin Trough Rheumatoid Factor Complement C4 Miscellaneous Test Crossmatch 10/29/16 10/29/16 10/29/16 07:45 07:45 12:19 WBC 14.7 H RBC 3.15 L Hgb 9.3 L Hct 28.9 L MCV MCH MCHC RDW 17.0 H Plt Count Lymph % (Auto) 11.9 L [place] % (Auto) 8.6 H Lymph # [place] # 1.3 H Baso # Seg Neutrophils % 78.1 H Seg Neuts % (Manual) Lymphocytes % (Manual) Monocytes % (Manual) Eosinophils % (Manual) Basophils % (Manual) Nucleated RBC % Seg Neutrophils # 11.4 H Seg Neutrophils # Man Lymphocytes # (Manual) Monocytes # (Manual) Eosinophils # (Manual) PT INR Fibrinogen dRVVT Confirm Interp Factor V Activity POC ABG pH POC ABG pCO2 POC ABG pO2 ABG pO2 ABG HCO3 ABG Base Excess ABG Hemoglobin Oxyhemoglobin Sodium Potassium 5.1 H Chloride Carbon Dioxide 19 L BUN 78 H Creatinine 2.2 H Glucose 116 H POC Glucose 118 H Lactic Acid Calcium Phosphorus Magnesium Direct Bilirubin AST ALT Alkaline Phosphatase Lactate Dehydrogenase Troponin T C-Reactive Protein Total Protein Albumin Prealbumin Triglycerides Cholesterol LDL Cholesterol Direct HDL Cholesterol Urine pH Urine WBC (Auto) Urine Creatinine Urine Total Protein Fluid Total Protein Vancomycin Trough Rheumatoid Factor Complement C4 Miscellaneous Test Crossmatch 10/29/16 10/30/16 10/30/16 17:49 01:52 03:28 WBC RBC Hgb Hct MCV MCH MCHC RDW Plt Count Lymph % (Auto) [place] % (Auto) Lymph # [place] # Baso # Seg Neutrophils % Seg Neuts % (Manual) Lymphocytes % (Manual) Monocytes % (Manual) Eosinophils % (Manual) Basophils % (Manual) Nucleated RBC % Seg Neutrophils # Seg Neutrophils # Man Lymphocytes # (Manual) Monocytes # (Manual) Eosinophils # (Manual) PT INR Fibrinogen dRVVT Confirm Interp Factor V Activity POC ABG pH POC ABG pCO2 POC ABG pO2 ABG pO2 ABG HCO3 ABG Base Excess ABG Hemoglobin Oxyhemoglobin Sodium Potassium 5.4 H Chloride 97.5 L Carbon Dioxide 19 L BUN 90 H Creatinine 2.5 H Glucose POC Glucose 120 H 129 H Lactic Acid Calcium Phosphorus 5.20 H Magnesium Direct Bilirubin AST ALT Alkaline Phosphatase Lactate Dehydrogenase Troponin T C-Reactive Protein Total Protein Albumin Prealbumin Triglycerides Cholesterol LDL Cholesterol Direct HDL Cholesterol Urine pH Urine WBC (Auto) Urine Creatinine Urine Total Protein Fluid Total Protein Vancomycin Trough Rheumatoid Factor Complement C4 Miscellaneous Test Crossmatch 10/30/16 10/30/16 10/30/16 03:28 08:19 08:19 WBC 11.6 H 15.9 H RBC 2.75 L 2.82 L Hgb 7.9 L 8.3 L Hct 24.2 L 25.2 L MCV MCH MCHC RDW 16.7 H 17.2 H Plt Count Lymph % (Auto) [place] % (Auto) 9.8 H Lymph # [place] # 1.1 H Baso # Seg Neutrophils % 74.2 H Seg Neuts % (Manual) Lymphocytes % (Manual) Monocytes % (Manual) Eosinophils % (Manual) Basophils % (Manual) Nucleated RBC % Seg Neutrophils # 8.6 H Seg Neutrophils # Man Lymphocytes # (Manual) Monocytes # (Manual) Eosinophils # (Manual) PT INR Fibrinogen dRVVT Confirm Interp Factor V Activity POC ABG pH POC ABG pCO2 POC ABG pO2 ABG pO2 ABG HCO3 ABG Base Excess ABG Hemoglobin Oxyhemoglobin Sodium Potassium 5.3 H Chloride 97.4 L Carbon Dioxide 19 L BUN 93 H Creatinine 2.6 H Glucose POC Glucose Lactic Acid Calcium Phosphorus Magnesium Direct Bilirubin AST ALT Alkaline Phosphatase Lactate Dehydrogenase Troponin T C-Reactive Protein Total Protein Albumin Prealbumin Triglycerides Cholesterol LDL Cholesterol Direct HDL Cholesterol Urine pH Urine WBC (Auto) Urine Creatinine Urine Total Protein Fluid Total Protein Vancomycin Trough Rheumatoid Factor Complement C4 Miscellaneous Test Crossmatch 10/30/16 10/30/16 10/31/16 17:11 23:56 00:40 WBC RBC Hgb Hct MCV MCH MCHC RDW Plt Count Lymph % (Auto) [place] % (Auto) Lymph # [place] # Baso # Seg Neutrophils % Seg Neuts % (Manual) Lymphocytes % (Manual) Monocytes % (Manual) Eosinophils % (Manual) Basophils % (Manual) Nucleated RBC % Seg Neutrophils # Seg Neutrophils # Man Lymphocytes # (Manual) Monocytes # (Manual) Eosinophils # (Manual) PT INR Fibrinogen dRVVT Confirm Interp Factor V Activity POC ABG pH POC ABG pCO2 POC ABG pO2 ABG pO2 ABG HCO3 ABG Base Excess ABG Hemoglobin Oxyhemoglobin Sodium Potassium Chloride Carbon Dioxide BUN Creatinine Glucose POC Glucose 106 H 117 H 120 H Lactic Acid Calcium Phosphorus Magnesium Direct Bilirubin AST ALT Alkaline Phosphatase Lactate Dehydrogenase Troponin T C-Reactive Protein Total Protein Albumin Prealbumin Triglycerides Cholesterol LDL Cholesterol Direct HDL Cholesterol Urine pH Urine WBC (Auto) Urine Creatinine Urine Total Protein Fluid Total Protein Vancomycin Trough Rheumatoid Factor Complement C4 Miscellaneous Test Crossmatch 10/31/16 10/31/16 10/31/16 05:43 07:15 07:15 WBC 12.1 H RBC 2.63 L Hgb 7.7 L Hct 23.3 L MCV MCH MCHC RDW 16.7 H Plt Count Lymph % (Auto) 11.7 L [place] % (Auto) 7.7 H Lymph # [place] # 0.9 H Baso # Seg Neutrophils % 78.0 H Seg Neuts % (Manual) Lymphocytes % (Manual) Monocytes % (Manual) Eosinophils % (Manual) Basophils % (Manual) Nucleated RBC % Seg Neutrophils # 9.4 H Seg Neutrophils # Man Lymphocytes # (Manual) Monocytes # (Manual) Eosinophils # (Manual) PT INR Fibrinogen dRVVT Confirm Interp Factor V Activity POC ABG pH POC ABG pCO2 POC ABG pO2 ABG pO2 ABG HCO3 ABG Base Excess ABG Hemoglobin Oxyhemoglobin Sodium Potassium Chloride 96.4 L Carbon Dioxide 21 L BUN 99 H Creatinine 2.6 H Glucose 144 H POC Glucose 125 H Lactic Acid Calcium Phosphorus 4.80 H Magnesium Direct Bilirubin AST ALT Alkaline Phosphatase Lactate Dehydrogenase Troponin T C-Reactive Protein Total Protein Albumin Prealbumin Triglycerides Cholesterol LDL Cholesterol Direct HDL Cholesterol Urine pH Urine WBC (Auto) Urine Creatinine Urine Total Protein Fluid Total Protein Vancomycin Trough Rheumatoid Factor Complement C4 Miscellaneous Test Crossmatch 10/31/16 10/31/16 11/01/16 11:46 18:34 00:20 WBC RBC Hgb Hct MCV MCH MCHC RDW Plt Count Lymph % (Auto) [place] % (Auto) Lymph # [place] # Baso # Seg Neutrophils % Seg Neuts % (Manual) Lymphocytes % (Manual) Monocytes % (Manual) Eosinophils % (Manual) Basophils % (Manual) Nucleated RBC % Seg Neutrophils # Seg Neutrophils # Man Lymphocytes # (Manual) Monocytes # (Manual) Eosinophils # (Manual) PT INR Fibrinogen dRVVT Confirm Interp Factor V Activity POC ABG pH POC ABG pCO2 POC ABG pO2 ABG pO2 ABG HCO3 ABG Base Excess ABG Hemoglobin Oxyhemoglobin Sodium Potassium Chloride Carbon Dioxide BUN Creatinine Glucose POC Glucose 159 H 140 H 132 H Lactic Acid Calcium Phosphorus Magnesium Direct Bilirubin AST ALT Alkaline Phosphatase Lactate Dehydrogenase Troponin T C-Reactive Protein Total Protein Albumin Prealbumin Triglycerides Cholesterol LDL Cholesterol Direct HDL Cholesterol Urine pH Urine WBC (Auto) Urine Creatinine Urine Total Protein Fluid Total Protein Vancomycin Trough Rheumatoid Factor Complement C4 Miscellaneous Test Crossmatch 11/01/16 11/01/16 11/01/16 04:55 04:55 06:11 WBC 11.2 H RBC 2.68 L Hgb 7.5 L Hct 23.7 L MCV MCH MCHC RDW 16.1 H Plt Count Lymph % (Auto) [place] % (Auto) 9.8 H Lymph # [place] # 1.1 H Baso # Seg Neutrophils % 70.8 H Seg Neuts % (Manual) Lymphocytes % (Manual) Monocytes % (Manual) Eosinophils % (Manual) Basophils % (Manual) Nucleated RBC % Seg Neutrophils # 7.9 H Seg Neutrophils # Man Lymphocytes # (Manual) Monocytes # (Manual) Eosinophils # (Manual) PT INR Fibrinogen dRVVT Confirm Interp Factor V Activity POC ABG pH POC ABG pCO2 POC ABG pO2 ABG pO2 ABG HCO3 ABG Base Excess ABG Hemoglobin Oxyhemoglobin Sodium Potassium 3.3 L D Chloride Carbon Dioxide BUN 61 H Creatinine 1.9 H Glucose 114 H POC Glucose 115 H Lactic Acid Calcium Phosphorus 1.80 L D Magnesium Direct Bilirubin AST ALT Alkaline Phosphatase Lactate Dehydrogenase Troponin T C-Reactive Protein Total Protein Albumin Prealbumin Triglycerides Cholesterol LDL Cholesterol Direct HDL Cholesterol Urine pH Urine WBC (Auto) Urine Creatinine Urine Total Protein Fluid Total Protein Vancomycin Trough Rheumatoid Factor Complement C4 Miscellaneous Test Crossmatch 11/01/16 11/01/16 11/01/16 12:29 18:23 23:58 WBC RBC Hgb Hct MCV MCH MCHC RDW Plt Count Lymph % (Auto) [place] % (Auto) Lymph # [place] # Baso # Seg Neutrophils % Seg Neuts % (Manual) Lymphocytes % (Manual) Monocytes % (Manual) Eosinophils % (Manual) Basophils % (Manual) Nucleated RBC % Seg Neutrophils # Seg Neutrophils # Man Lymphocytes # (Manual) Monocytes # (Manual) Eosinophils # (Manual) PT INR Fibrinogen dRVVT Confirm Interp Factor V Activity POC ABG pH POC ABG pCO2 POC ABG pO2 ABG pO2 ABG HCO3 ABG Base Excess ABG Hemoglobin Oxyhemoglobin Sodium Potassium Chloride Carbon Dioxide BUN Creatinine Glucose POC Glucose 142 H 143 H 128 H Lactic Acid Calcium Phosphorus Magnesium Direct Bilirubin AST ALT Alkaline Phosphatase Lactate Dehydrogenase Troponin T C-Reactive Protein Total Protein Albumin Prealbumin Triglycerides Cholesterol LDL Cholesterol Direct HDL Cholesterol Urine pH Urine WBC (Auto) Urine Creatinine Urine Total Protein Fluid Total Protein Vancomycin Trough Rheumatoid Factor Complement C4 Miscellaneous Test Crossmatch 11/02/16 11/02/16 11/02/16 04:16 05:29 11:58 WBC RBC Hgb Hct MCV MCH MCHC RDW Plt Count Lymph % (Auto) [place] % (Auto) Lymph # [place] # Baso # Seg Neutrophils % Seg Neuts % (Manual) Lymphocytes % (Manual) Monocytes % (Manual) Eosinophils % (Manual) Basophils % (Manual) Nucleated RBC % Seg Neutrophils # Seg Neutrophils # Man Lymphocytes # (Manual) Monocytes # (Manual) Eosinophils # (Manual) PT INR Fibrinogen dRVVT Confirm Interp Factor V Activity POC ABG pH POC ABG pCO2 POC ABG pO2 ABG pO2 ABG HCO3 ABG Base Excess ABG Hemoglobin Oxyhemoglobin Sodium Potassium 3.1 L Chloride Carbon Dioxide BUN 73 H Creatinine 2.3 H Glucose 112 H POC Glucose 135 H 149 H Lactic Acid Calcium Phosphorus Magnesium Direct Bilirubin AST ALT Alkaline Phosphatase Lactate Dehydrogenase Troponin T C-Reactive Protein Total Protein Albumin Prealbumin Triglycerides Cholesterol LDL Cholesterol Direct HDL Cholesterol Urine pH Urine WBC (Auto) Urine Creatinine Urine Total Protein Fluid Total Protein Vancomycin Trough Rheumatoid Factor Complement C4 Miscellaneous Test Crossmatch 11/02/16 11/02/16 11/03/16 17:42 22:54 06:00 WBC RBC Hgb Hct MCV MCH MCHC RDW Plt Count Lymph % (Auto) [place] % (Auto) Lymph # [place] # Baso # Seg Neutrophils % Seg Neuts % (Manual) Lymphocytes % (Manual) Monocytes % (Manual) Eosinophils % (Manual) Basophils % (Manual) Nucleated RBC % Seg Neutrophils # Seg Neutrophils # Man Lymphocytes # (Manual) Monocytes # (Manual) Eosinophils # (Manual) PT INR Fibrinogen dRVVT Confirm Interp Factor V Activity POC ABG pH POC ABG pCO2 POC ABG pO2 ABG pO2 ABG HCO3 ABG Base Excess ABG Hemoglobin Oxyhemoglobin Sodium Potassium Chloride 96.7 L Carbon Dioxide BUN 41 H Creatinine 1.5 H Glucose 145 H POC Glucose 182 H 115 H Lactic Acid Calcium Phosphorus 1.60 L D Magnesium 1.50 L Direct Bilirubin AST ALT Alkaline Phosphatase Lactate Dehydrogenase Troponin T C-Reactive Protein Total Protein Albumin Prealbumin Triglycerides Cholesterol LDL Cholesterol Direct HDL Cholesterol Urine pH Urine WBC (Auto) Urine Creatinine Urine Total Protein Fluid Total Protein Vancomycin Trough Rheumatoid Factor Complement C4 Miscellaneous Test Crossmatch 11/03/16 11/03/16 11/03/16 11:53 17:45 23:37 WBC RBC Hgb Hct MCV MCH MCHC RDW Plt Count Lymph % (Auto) [place] % (Auto) Lymph # [place] # Baso # Seg Neutrophils % Seg Neuts % (Manual) Lymphocytes % (Manual) Monocytes % (Manual) Eosinophils % (Manual) Basophils % (Manual) Nucleated RBC % Seg Neutrophils # Seg Neutrophils # Man Lymphocytes # (Manual) Monocytes # (Manual) Eosinophils # (Manual) PT INR Fibrinogen dRVVT Confirm Interp Factor V Activity POC ABG pH POC ABG pCO2 POC ABG pO2 ABG pO2 ABG HCO3 ABG Base Excess ABG Hemoglobin Oxyhemoglobin Sodium Potassium Chloride Carbon Dioxide BUN Creatinine Glucose POC Glucose 131 H 134 H 113 H Lactic Acid Calcium Phosphorus Magnesium Direct Bilirubin AST ALT Alkaline Phosphatase Lactate Dehydrogenase Troponin T C-Reactive Protein Total Protein Albumin Prealbumin Triglycerides Cholesterol LDL Cholesterol Direct HDL Cholesterol Urine pH Urine WBC (Auto) Urine Creatinine Urine Total Protein Fluid Total Protein Vancomycin Trough Rheumatoid Factor Complement C4 Miscellaneous Test Crossmatch 11/04/16 11/04/16 11/04/16 05:41 06:00 12:10 WBC RBC Hgb Hct MCV MCH MCHC RDW Plt Count Lymph % (Auto) [place] % (Auto) Lymph # [place] # Baso # Seg Neutrophils % Seg Neuts % (Manual) Lymphocytes % (Manual) Monocytes % (Manual) Eosinophils % (Manual) Basophils % (Manual) Nucleated RBC % Seg Neutrophils # Seg Neutrophils # Man Lymphocytes # (Manual) Monocytes # (Manual) Eosinophils # (Manual) PT INR Fibrinogen dRVVT Confirm Interp Factor V Activity POC ABG pH POC ABG pCO2 POC ABG pO2 ABG pO2 ABG HCO3 ABG Base Excess ABG Hemoglobin Oxyhemoglobin Sodium Potassium Chloride 96.7 L Carbon Dioxide BUN 52 H Creatinine 1.9 H Glucose 126 H POC Glucose 137 H 191 H Lactic Acid Calcium Phosphorus Magnesium Direct Bilirubin AST ALT Alkaline Phosphatase Lactate Dehydrogenase Troponin T C-Reactive Protein Total Protein Albumin Prealbumin Triglycerides Cholesterol LDL Cholesterol Direct HDL Cholesterol Urine pH Urine WBC (Auto) Urine Creatinine Urine Total Protein Fluid Total Protein Vancomycin Trough Rheumatoid Factor Complement C4 Miscellaneous Test Crossmatch 11/04/16 11/05/16 11/05/16 22:57 03:10 05:10 WBC RBC Hgb Hct MCV MCH MCHC RDW Plt Count Lymph % (Auto) [place] % (Auto) Lymph # [place] # Baso # Seg Neutrophils % Seg Neuts % (Manual) Lymphocytes % (Manual) Monocytes % (Manual) Eosinophils % (Manual) Basophils % (Manual) Nucleated RBC % Seg Neutrophils # Seg Neutrophils # Man Lymphocytes # (Manual) Monocytes # (Manual) Eosinophils # (Manual) PT INR Fibrinogen dRVVT Confirm Interp Factor V Activity POC ABG pH POC ABG pCO2 POC ABG pO2 ABG pO2 ABG HCO3 ABG Base Excess ABG Hemoglobin Oxyhemoglobin Sodium 136 L Potassium Chloride 97.2 L Carbon Dioxide BUN 32 H Creatinine 1.3 H Glucose 123 H POC Glucose 125 H 108 H Lactic Acid Calcium 7.8 L Phosphorus Magnesium Direct Bilirubin AST ALT Alkaline Phosphatase Lactate Dehydrogenase Troponin T C-Reactive Protein Total Protein Albumin Prealbumin Triglycerides Cholesterol LDL Cholesterol Direct HDL Cholesterol Urine pH Urine WBC (Auto) Urine Creatinine Urine Total Protein Fluid Total Protein Vancomycin Trough Rheumatoid Factor Complement C4 Miscellaneous Test Crossmatch 11/05/16 11/05/16 11/05/16 12:23 13:09 13:25 WBC RBC Hgb Hct MCV MCH MCHC RDW Plt Count Lymph % (Auto) [place] % (Auto) Lymph # [place] # Baso # Seg Neutrophils % Seg Neuts % (Manual) Lymphocytes % (Manual) Monocytes % (Manual) Eosinophils % (Manual) Basophils % (Manual) Nucleated RBC % Seg Neutrophils # Seg Neutrophils # Man Lymphocytes # (Manual) Monocytes # (Manual) Eosinophils # (Manual) PT INR Fibrinogen dRVVT Confirm Interp Factor V Activity POC ABG pH POC ABG pCO2 POC ABG pO2 ABG pO2 ABG HCO3 ABG Base Excess ABG Hemoglobin Oxyhemoglobin Sodium Potassium Chloride Carbon Dioxide BUN Creatinine Glucose POC Glucose 124 H Lactic Acid Calcium Phosphorus Magnesium Direct Bilirubin AST ALT Alkaline Phosphatase Lactate Dehydrogenase Troponin T C-Reactive Protein 11.40 H Total Protein Albumin Prealbumin Triglycerides Cholesterol LDL Cholesterol Direct HDL Cholesterol Urine pH 9.0 H Urine WBC (Auto) Urine Creatinine Urine Total Protein Fluid Total Protein Vancomycin Trough Rheumatoid Factor Complement C4 Miscellaneous Test Crossmatch 11/05/16 11/05/16 11/05/16 13:25 17:54 23:42 WBC RBC Hgb Hct MCV MCH MCHC RDW Plt Count Lymph % (Auto) [place] % (Auto) Lymph # [place] # Baso # Seg Neutrophils % Seg Neuts % (Manual) Lymphocytes % (Manual) Monocytes % (Manual) Eosinophils % (Manual) Basophils % (Manual) Nucleated RBC % Seg Neutrophils # Seg Neutrophils # Man Lymphocytes # (Manual) Monocytes # (Manual) Eosinophils # (Manual) PT INR Fibrinogen dRVVT Confirm Interp Factor V Activity POC ABG pH POC ABG pCO2 POC ABG pO2 ABG pO2 ABG HCO3 ABG Base Excess ABG Hemoglobin Oxyhemoglobin Sodium Potassium Chloride Carbon Dioxide BUN Creatinine Glucose POC Glucose 114 H 134 H Lactic Acid Calcium Phosphorus Magnesium Direct Bilirubin AST ALT Alkaline Phosphatase Lactate Dehydrogenase Troponin T C-Reactive Protein Total Protein Albumin Prealbumin Triglycerides Cholesterol LDL Cholesterol Direct HDL Cholesterol Urine pH Urine WBC (Auto) Urine Creatinine Urine Total Protein Fluid Total Protein Vancomycin Trough Rheumatoid Factor Complement C4 Miscellaneous Test Flexitest 1 H Crossmatch 11/06/16 11/06/16 11/06/16 04:56 06:25 06:25 WBC RBC 2.50 L Hgb 7.3 L Hct 22.5 L MCV MCH MCHC RDW 16.9 H Plt Count Lymph % (Auto) [place] % (Auto) 10.5 H Lymph # [place] # 1.1 H Baso # Seg Neutrophils % Seg Neuts % (Manual) Lymphocytes % (Manual) Monocytes % (Manual) Eosinophils % (Manual) Basophils % (Manual) Nucleated RBC % Seg Neutrophils # Seg Neutrophils # Man Lymphocytes # (Manual) Monocytes # (Manual) Eosinophils # (Manual) PT INR Fibrinogen dRVVT Confirm Interp Factor V Activity POC ABG pH POC ABG pCO2 POC ABG pO2 ABG pO2 ABG HCO3 ABG Base Excess ABG Hemoglobin Oxyhemoglobin Sodium Potassium 5.1 H Chloride 95.9 L Carbon Dioxide BUN 52 H Creatinine 1.8 H Glucose 117 H POC Glucose 120 H Lactic Acid Calcium Phosphorus Magnesium Direct Bilirubin AST 103 H ALT 77 H Alkaline Phosphatase 285 H Lactate Dehydrogenase Troponin T C-Reactive Protein Total Protein 6.2 L Albumin 1.8 L Prealbumin 0.180 L Triglycerides Cholesterol LDL Cholesterol Direct HDL Cholesterol Urine pH Urine WBC (Auto) Urine Creatinine Urine Total Protein Fluid Total Protein Vancomycin Trough Rheumatoid Factor Complement C4 Miscellaneous Test Crossmatch 11/06/16 11/06/16 11/06/16 11:56 17:14 23:52 WBC RBC Hgb Hct MCV MCH MCHC RDW Plt Count Lymph % (Auto) [place] % (Auto) Lymph # [place] # Baso # Seg Neutrophils % Seg Neuts % (Manual) Lymphocytes % (Manual) Monocytes % (Manual) Eosinophils % (Manual) Basophils % (Manual) Nucleated RBC % Seg Neutrophils # Seg Neutrophils # Man Lymphocytes # (Manual) Monocytes # (Manual) Eosinophils # (Manual) PT INR Fibrinogen dRVVT Confirm Interp Factor V Activity POC ABG pH POC ABG pCO2 POC ABG pO2 ABG pO2 ABG HCO3 ABG Base Excess ABG Hemoglobin Oxyhemoglobin Sodium Potassium Chloride Carbon Dioxide BUN Creatinine Glucose POC Glucose 141 H 125 H 130 H Lactic Acid Calcium Phosphorus Magnesium Direct Bilirubin AST ALT Alkaline Phosphatase Lactate Dehydrogenase Troponin T C-Reactive Protein Total Protein Albumin Prealbumin Triglycerides Cholesterol LDL Cholesterol Direct HDL Cholesterol Urine pH Urine WBC (Auto) Urine Creatinine Urine Total Protein Fluid Total Protein Vancomycin Trough Rheumatoid Factor Complement C4 Miscellaneous Test Crossmatch 11/07/16 11/07/16 11/07/16 06:30 06:30 09:37 WBC RBC 2.18 L Hgb 6.3 L Hct 19.7 L* MCV MCH MCHC RDW 16.8 H Plt Count Lymph % (Auto) [place] % (Auto) 10.0 H Lymph # [place] # 1.0 H Baso # Seg Neutrophils % Seg Neuts % (Manual) Lymphocytes % (Manual) Monocytes % (Manual) Eosinophils % (Manual) Basophils % (Manual) Nucleated RBC % Seg Neutrophils # Seg Neutrophils # Man Lymphocytes # (Manual) Monocytes # (Manual) Eosinophils # (Manual) PT INR Fibrinogen dRVVT Confirm Interp Factor V Activity POC ABG pH POC ABG pCO2 POC ABG pO2 ABG pO2 ABG HCO3 ABG Base Excess ABG Hemoglobin Oxyhemoglobin Sodium 135 L Potassium Chloride 95.6 L Carbon Dioxide BUN 70 H Creatinine 2.0 H Glucose 126 H POC Glucose Lactic Acid Calcium Phosphorus Magnesium Direct Bilirubin AST ALT Alkaline Phosphatase Lactate Dehydrogenase Troponin T C-Reactive Protein Total Protein Albumin Prealbumin Triglycerides Cholesterol LDL Cholesterol Direct HDL Cholesterol Urine pH Urine WBC (Auto) Urine Creatinine Urine Total Protein Fluid Total Protein Vancomycin Trough Rheumatoid Factor Complement C4 Miscellaneous Test Crossmatch See Detail 11/07/16 11/07/16 11/07/16 12:52 18:51 21:26 WBC RBC Hgb Hct MCV MCH MCHC RDW Plt Count Lymph % (Auto) [place] % (Auto) Lymph # [place] # Baso # Seg Neutrophils % Seg Neuts % (Manual) Lymphocytes % (Manual) Monocytes % (Manual) Eosinophils % (Manual) Basophils % (Manual) Nucleated RBC % Seg Neutrophils # Seg Neutrophils # Man Lymphocytes # (Manual) Monocytes # (Manual) Eosinophils # (Manual) PT INR Fibrinogen dRVVT Confirm Interp Factor V Activity POC ABG pH 7.523 H POC ABG pCO2 34.6 L POC ABG pO2 53 L ABG pO2 ABG HCO3 ABG Base Excess ABG Hemoglobin Oxyhemoglobin Sodium Potassium Chloride Carbon Dioxide BUN Creatinine Glucose POC Glucose 142 H 155 H Lactic Acid Calcium Phosphorus Magnesium Direct Bilirubin AST ALT Alkaline Phosphatase Lactate Dehydrogenase Troponin T C-Reactive Protein Total Protein Albumin Prealbumin Triglycerides Cholesterol LDL Cholesterol Direct HDL Cholesterol Urine pH Urine WBC (Auto) Urine Creatinine Urine Total Protein Fluid Total Protein Vancomycin Trough Rheumatoid Factor Complement C4 Miscellaneous Test Crossmatch 11/07/16 11/08/16 11/08/16 21:34 13:03 23:37 WBC RBC 2.63 L Hgb 7.7 L Hct 22.7 L MCV MCH MCHC RDW 17.0 H Plt Count Lymph % (Auto) [place] % (Auto) Lymph # [place] # Baso # Seg Neutrophils % Seg Neuts % (Manual) Lymphocytes % (Manual) Monocytes % (Manual) Eosinophils % (Manual) Basophils % (Manual) Nucleated RBC % Seg Neutrophils # Seg Neutrophils # Man Lymphocytes # (Manual) Monocytes # (Manual) Eosinophils # (Manual) PT INR Fibrinogen dRVVT Confirm Interp Factor V Activity POC ABG pH 7.478 H POC ABG pCO2 34.0 L POC ABG pO2 50 L ABG pO2 ABG HCO3 ABG Base Excess ABG Hemoglobin Oxyhemoglobin Sodium Potassium Chloride Carbon Dioxide BUN Creatinine Glucose POC Glucose 113 H Lactic Acid Calcium Phosphorus Magnesium Direct Bilirubin AST ALT Alkaline Phosphatase Lactate Dehydrogenase Troponin T C-Reactive Protein Total Protein Albumin Prealbumin Triglycerides Cholesterol LDL Cholesterol Direct HDL Cholesterol Urine pH Urine WBC (Auto) Urine Creatinine Urine Total Protein Fluid Total Protein Vancomycin Trough Rheumatoid Factor Complement C4 Miscellaneous Test Crossmatch 11/09/16 11/09/16 11/09/16 04:35 10:15 18:21 WBC RBC 2.68 L Hgb 7.8 L Hct 23.3 L MCV MCH MCHC RDW 17.0 H Plt Count Lymph % (Auto) [place] % (Auto) 12.1 H Lymph # [place] # 1.1 H Baso # Seg Neutrophils % Seg Neuts % (Manual) Lymphocytes % (Manual) Monocytes % (Manual) Eosinophils % (Manual) Basophils % (Manual) Nucleated RBC % Seg Neutrophils # Seg Neutrophils # Man Lymphocytes # (Manual) Monocytes # (Manual) Eosinophils # (Manual) PT INR Fibrinogen dRVVT Confirm Interp Factor V Activity POC ABG pH POC ABG pCO2 POC ABG pO2 ABG pO2 ABG HCO3 ABG Base Excess ABG Hemoglobin Oxyhemoglobin Sodium Potassium Chloride Carbon Dioxide BUN 51 H Creatinine 1.8 H Glucose POC Glucose 60 L Lactic Acid Calcium 8.3 L Phosphorus Magnesium Direct Bilirubin AST ALT Alkaline Phosphatase Lactate Dehydrogenase Troponin T C-Reactive Protein Total Protein Albumin Prealbumin Triglycerides Cholesterol LDL Cholesterol Direct HDL Cholesterol Urine pH Urine WBC (Auto) Urine Creatinine Urine Total Protein Fluid Total Protein Vancomycin Trough Rheumatoid Factor Complement C4 Miscellaneous Test Crossmatch 11/09/16 11/10/16 11/10/16 18:55 07:00 11:51 WBC RBC Hgb Hct MCV MCH MCHC RDW Plt Count Lymph % (Auto) [place] % (Auto) Lymph # [place] # Baso # Seg Neutrophils % Seg Neuts % (Manual) Lymphocytes % (Manual) Monocytes % (Manual) Eosinophils % (Manual) Basophils % (Manual) Nucleated RBC % Seg Neutrophils # Seg Neutrophils # Man Lymphocytes # (Manual) Monocytes # (Manual) Eosinophils # (Manual) PT INR Fibrinogen dRVVT Confirm Interp Factor V Activity POC ABG pH POC ABG pCO2 POC ABG pO2 ABG pO2 ABG HCO3 ABG Base Excess ABG Hemoglobin Oxyhemoglobin Sodium Potassium 3.0 L D Chloride 97.4 L Carbon Dioxide BUN 28 H Creatinine 1.3 H Glucose POC Glucose 68 L 120 H Lactic Acid Calcium 7.8 L Phosphorus Magnesium Direct Bilirubin AST ALT Alkaline Phosphatase Lactate Dehydrogenase Troponin T C-Reactive Protein Total Protein Albumin Prealbumin Triglycerides Cholesterol LDL Cholesterol Direct HDL Cholesterol Urine pH Urine WBC (Auto) Urine Creatinine Urine Total Protein Fluid Total Protein Vancomycin Trough Rheumatoid Factor Complement C4 Miscellaneous Test Crossmatch 11/10/16 11/11/16 11/11/16 14:20 06:59 06:59 WBC RBC 2.81 L Hgb 8.1 L Hct 24.4 L MCV MCH MCHC RDW 16.4 H Plt Count Lymph % (Auto) [place] % (Auto) 10.8 H Lymph # [place] # 1.0 H Baso # Seg Neutrophils % Seg Neuts % (Manual) Lymphocytes % (Manual) Monocytes % (Manual) Eosinophils % (Manual) Basophils % (Manual) Nucleated RBC % Seg Neutrophils # Seg Neutrophils # Man Lymphocytes # (Manual) Monocytes # (Manual) Eosinophils # (Manual) PT INR Fibrinogen dRVVT Confirm Interp Factor V Activity POC ABG pH POC ABG pCO2 POC ABG pO2 ABG pO2 ABG HCO3 ABG Base Excess ABG Hemoglobin Oxyhemoglobin Sodium Potassium Chloride Carbon Dioxide BUN Creatinine Glucose POC Glucose Lactic Acid Calcium Phosphorus Magnesium Direct Bilirubin AST ALT Alkaline Phosphatase Lactate Dehydrogenase 196 H Troponin T C-Reactive Protein Total Protein 6.1 L Albumin Prealbumin Triglycerides Cholesterol LDL Cholesterol Direct HDL Cholesterol Urine pH Urine WBC (Auto) Urine Creatinine Urine Total Protein Fluid Total Protein < 3.0 L Vancomycin Trough Rheumatoid Factor Complement C4 Miscellaneous Test Crossmatch 11/11/16 11/11/16 11/12/16 06:59 09:50 04:00 WBC RBC Hgb Hct MCV MCH MCHC RDW Plt Count Lymph % (Auto) [place] % (Auto) Lymph # [place] # Baso # Seg Neutrophils % Seg Neuts % (Manual) Lymphocytes % (Manual) Monocytes % (Manual) Eosinophils % (Manual) Basophils % (Manual) Nucleated RBC % Seg Neutrophils # Seg Neutrophils # Man Lymphocytes # (Manual) Monocytes # (Manual) Eosinophils # (Manual) PT INR 1.18 H Fibrinogen dRVVT Confirm Interp Factor V Activity POC ABG pH POC ABG pCO2 POC ABG pO2 ABG pO2 ABG HCO3 ABG Base Excess ABG Hemoglobin Oxyhemoglobin Sodium 136 L 133 L Potassium Chloride 96.1 L 94.8 L Carbon Dioxide 21 L BUN 37 H 42 H Creatinine 1.8 H 2.0 H Glucose POC Glucose Lactic Acid Calcium Phosphorus Magnesium Direct Bilirubin AST ALT Alkaline Phosphatase Lactate Dehydrogenase Troponin T C-Reactive Protein Total Protein Albumin Prealbumin Triglycerides Cholesterol LDL Cholesterol Direct HDL Cholesterol Urine pH Urine WBC (Auto) Urine Creatinine Urine Total Protein Fluid Total Protein Vancomycin Trough Rheumatoid Factor Complement C4 Miscellaneous Test Crossmatch 11/12/16 11/12/16 11/13/16 04:00 23:55 05:53 WBC RBC Hgb 8.9 L Hct 27.2 L MCV MCH MCHC RDW Plt Count Lymph % (Auto) [place] % (Auto) Lymph # [place] # Baso # Seg Neutrophils % Seg Neuts % (Manual) Lymphocytes % (Manual) Monocytes % (Manual) Eosinophils % (Manual) Basophils % (Manual) Nucleated RBC % Seg Neutrophils # Seg Neutrophils # Man Lymphocytes # (Manual) Monocytes # (Manual) Eosinophils # (Manual) PT INR Fibrinogen dRVVT Confirm Interp Factor V Activity POC ABG pH POC ABG pCO2 POC ABG pO2 ABG pO2 ABG HCO3 ABG Base Excess ABG Hemoglobin Oxyhemoglobin Sodium Potassium Chloride Carbon Dioxide BUN Creatinine Glucose POC Glucose 132 H 120 H Lactic Acid Calcium Phosphorus Magnesium Direct Bilirubin AST ALT Alkaline Phosphatase Lactate Dehydrogenase Troponin T C-Reactive Protein Total Protein Albumin Prealbumin Triglycerides Cholesterol LDL Cholesterol Direct HDL Cholesterol Urine pH Urine WBC (Auto) Urine Creatinine Urine Total Protein Fluid Total Protein Vancomycin Trough Rheumatoid Factor Complement C4 Miscellaneous Test Crossmatch 11/13/16 11/13/16 11/13/16 11:43 17:09 23:41 WBC RBC Hgb Hct MCV MCH MCHC RDW Plt Count Lymph % (Auto) [place] % (Auto) Lymph # [place] # Baso # Seg Neutrophils % Seg Neuts % (Manual) Lymphocytes % (Manual) Monocytes % (Manual) Eosinophils % (Manual) Basophils % (Manual) Nucleated RBC % Seg Neutrophils # Seg Neutrophils # Man Lymphocytes # (Manual) Monocytes # (Manual) Eosinophils # (Manual) PT INR Fibrinogen dRVVT Confirm Interp Factor V Activity POC ABG pH POC ABG pCO2 POC ABG pO2 ABG pO2 ABG HCO3 ABG Base Excess ABG Hemoglobin Oxyhemoglobin Sodium Potassium Chloride Carbon Dioxide BUN Creatinine Glucose POC Glucose 114 H 113 H 108 H Lactic Acid Calcium Phosphorus Magnesium Direct Bilirubin AST ALT Alkaline Phosphatase Lactate Dehydrogenase Troponin T C-Reactive Protein Total Protein Albumin Prealbumin Triglycerides Cholesterol LDL Cholesterol Direct HDL Cholesterol Urine pH Urine WBC (Auto) Urine Creatinine Urine Total Protein Fluid Total Protein Vancomycin Trough Rheumatoid Factor Complement C4 Miscellaneous Test Crossmatch 11/13/16 11/15/16 11/15/16 Unknown 00:37 03:30 WBC 11.2 H RBC 2.72 L Hgb 7.6 L Hct 23.4 L MCV MCH MCHC RDW 16.5 H Plt Count Lymph % (Auto) [place] % (Auto) Lymph # [place] # Baso # Seg Neutrophils % Seg Neuts % (Manual) Lymphocytes % (Manual) Monocytes % (Manual) Eosinophils % (Manual) Basophils % (Manual) Nucleated RBC % Seg Neutrophils # Seg Neutrophils # Man Lymphocytes # (Manual) Monocytes # (Manual) Eosinophils # (Manual) PT INR Fibrinogen dRVVT Confirm Interp Factor V Activity POC ABG pH POC ABG pCO2 POC ABG pO2 ABG pO2 ABG HCO3 ABG Base Excess ABG Hemoglobin Oxyhemoglobin Sodium 135 L Potassium Chloride 95.2 L Carbon Dioxide BUN 52 H Creatinine 2.2 H Glucose POC Glucose 108 H Lactic Acid Calcium Phosphorus Magnesium Direct Bilirubin AST ALT Alkaline Phosphatase Lactate Dehydrogenase Troponin T C-Reactive Protein Total Protein Albumin Prealbumin Triglycerides Cholesterol LDL Cholesterol Direct HDL Cholesterol Urine pH Urine WBC (Auto) Urine Creatinine Urine Total Protein Fluid Total Protein Vancomycin Trough Rheumatoid Factor Complement C4 Miscellaneous Test Crossmatch 11/15/16 11/15/16 11/15/16 03:30 05:04 11:50 WBC RBC Hgb Hct MCV MCH MCHC RDW Plt Count Lymph % (Auto) [place] % (Auto) Lymph # [place] # Baso # Seg Neutrophils % Seg Neuts % (Manual) Lymphocytes % (Manual) Monocytes % (Manual) Eosinophils % (Manual) Basophils % (Manual) Nucleated RBC % Seg Neutrophils # Seg Neutrophils # Man Lymphocytes # (Manual) Monocytes # (Manual) Eosinophils # (Manual) PT INR Fibrinogen dRVVT Confirm Interp Factor V Activity POC ABG pH POC ABG pCO2 POC ABG pO2 ABG pO2 ABG HCO3 ABG Base Excess ABG Hemoglobin Oxyhemoglobin Sodium Potassium 3.4 L Chloride Carbon Dioxide BUN 25 H Creatinine 1.5 H Glucose 103 H POC Glucose 121 H 144 H Lactic Acid Calcium Phosphorus Magnesium Direct Bilirubin AST ALT Alkaline Phosphatase Lactate Dehydrogenase Troponin T C-Reactive Protein Total Protein Albumin Prealbumin Triglycerides Cholesterol LDL Cholesterol Direct HDL Cholesterol Urine pH Urine WBC (Auto) Urine Creatinine Urine Total Protein Fluid Total Protein Vancomycin Trough Rheumatoid Factor Complement C4 Miscellaneous Test Crossmatch 11/15/16 11/15/16 11/16/16 21:28 23:20 11:44 WBC RBC Hgb Hct MCV MCH MCHC RDW Plt Count Lymph % (Auto) [place] % (Auto) Lymph # [place] # Baso # Seg Neutrophils % Seg Neuts % (Manual) Lymphocytes % (Manual) Monocytes % (Manual) Eosinophils % (Manual) Basophils % (Manual) Nucleated RBC % Seg Neutrophils # Seg Neutrophils # Man Lymphocytes # (Manual) Monocytes # (Manual) Eosinophils # (Manual) PT INR Fibrinogen dRVVT Confirm Interp Factor V Activity POC ABG pH 7.462 H POC ABG pCO2 POC ABG pO2 71 L ABG pO2 ABG HCO3 ABG Base Excess ABG Hemoglobin Oxyhemoglobin Sodium Potassium Chloride Carbon Dioxide BUN Creatinine Glucose POC Glucose 116 H 133 H Lactic Acid Calcium Phosphorus Magnesium Direct Bilirubin AST ALT Alkaline Phosphatase Lactate Dehydrogenase Troponin T C-Reactive Protein Total Protein Albumin Prealbumin Triglycerides Cholesterol LDL Cholesterol Direct HDL Cholesterol Urine pH Urine WBC (Auto) Urine Creatinine Urine Total Protein Fluid Total Protein Vancomycin Trough Rheumatoid Factor Complement C4 Miscellaneous Test Crossmatch 11/16/16 11/16/1617 12:20 17:05 23:35 WBC 11.7 H RBC 2.73 L Hgb 7.6 L Hct 23.7 L MCV MCH MCHC RDW 16.6 H Plt Count Lymph % (Auto) [place] % (Auto) Lymph # [place] # Baso # Seg Neutrophils % Seg Neuts % (Manual) Lymphocytes % (Manual) Monocytes % (Manual) Eosinophils % (Manual) Basophils % (Manual) Nucleated RBC % Seg Neutrophils # Seg Neutrophils # Man Lymphocytes # (Manual) Monocytes # (Manual) Eosinophils # (Manual) PT INR Fibrinogen dRVVT Confirm Interp Factor V Activity POC ABG pH POC ABG pCO2 POC ABG pO2 ABG pO2 ABG HCO3 ABG Base Excess ABG Hemoglobin Oxyhemoglobin Sodium Potassium Chloride Carbon Dioxide BUN Creatinine Glucose POC Glucose 154 H 125 H Lactic Acid Calcium Phosphorus Magnesium Direct Bilirubin AST ALT Alkaline Phosphatase Lactate Dehydrogenase Troponin T C-Reactive Protein Total Protein Albumin Prealbumin Triglycerides Cholesterol LDL Cholesterol Direct HDL Cholesterol Urine pH Urine WBC (Auto) Urine Creatinine Urine Total Protein Fluid Total Protein Vancomycin Trough Rheumatoid Factor Complement C4 Miscellaneous Test Crossmatch 11/17/16 11/17/16 11/17/16 03:20 03:20 03:20 WBC RBC 2.55 L Hgb 7.3 L Hct 21.9 L MCV MCH MCHC RDW 16.6 H Plt Count Lymph % (Auto) [place] % (Auto) 11.5 H Lymph # [place] # 1.1 H Baso # Seg Neutrophils % Seg Neuts % (Manual) Lymphocytes % (Manual) Monocytes % (Manual) Eosinophils % (Manual) Basophils % (Manual) Nucleated RBC % Seg Neutrophils # Seg Neutrophils # Man Lymphocytes # (Manual) Monocytes # (Manual) Eosinophils # (Manual) PT 16.8 H INR 1.37 H Fibrinogen dRVVT Confirm Interp Factor V Activity POC ABG pH POC ABG pCO2 POC ABG pO2 ABG pO2 ABG HCO3 ABG Base Excess ABG Hemoglobin Oxyhemoglobin Sodium Potassium 3.5 L Chloride Carbon Dioxide BUN 21 H Creatinine Glucose POC Glucose Lactic Acid Calcium 7.9 L Phosphorus Magnesium Direct Bilirubin AST ALT Alkaline Phosphatase Lactate Dehydrogenase Troponin T C-Reactive Protein Total Protein Albumin Prealbumin Triglycerides Cholesterol LDL Cholesterol Direct HDL Cholesterol Urine pH Urine WBC (Auto) Urine Creatinine Urine Total Protein Fluid Total Protein Vancomycin Trough Rheumatoid Factor Complement C4 Miscellaneous Test Crossmatch 09/11/17/16 11/17/16 06:34 11:21 21:22 WBC RBC Hgb Hct MCV MCH MCHC RDW Plt Count Lymph % (Auto) [place] % (Auto) Lymph # [place] # Baso # Seg Neutrophils % Seg Neuts % (Manual) Lymphocytes % (Manual) Monocytes % (Manual) Eosinophils % (Manual) Basophils % (Manual) Nucleated RBC % Seg Neutrophils # Seg Neutrophils # Man Lymphocytes # (Manual) Monocytes # (Manual) Eosinophils # (Manual) PT INR Fibrinogen dRVVT Confirm Interp Factor V Activity POC ABG pH 7.467 H POC ABG pCO2 POC ABG pO2 73 L ABG pO2 ABG HCO3 ABG Base Excess ABG Hemoglobin Oxyhemoglobin Sodium Potassium Chloride Carbon Dioxide BUN Creatinine Glucose POC Glucose 121 H 119 H Lactic Acid Calcium Phosphorus Magnesium Direct Bilirubin AST ALT Alkaline Phosphatase Lactate Dehydrogenase Troponin T C-Reactive Protein Total Protein Albumin Prealbumin Triglycerides Cholesterol LDL Cholesterol Direct HDL Cholesterol Urine pH Urine WBC (Auto) Urine Creatinine Urine Total Protein Fluid Total Protein Vancomycin Trough Rheumatoid Factor Complement C4 Miscellaneous Test Crossmatch 11/18/16 11/18/16 11/19/16 12:16 17:19 00:00 WBC RBC Hgb Hct MCV MCH MCHC RDW Plt Count Lymph % (Auto) [place] % (Auto) Lymph # [place] # Baso # Seg Neutrophils % Seg Neuts % (Manual) Lymphocytes % (Manual) Monocytes % (Manual) Eosinophils % (Manual) Basophils % (Manual) Nucleated RBC % Seg Neutrophils # Seg Neutrophils # Man Lymphocytes # (Manual) Monocytes # (Manual) Eosinophils # (Manual) PT INR Fibrinogen dRVVT Confirm Interp Factor V Activity POC ABG pH POC ABG pCO2 POC ABG pO2 ABG pO2 ABG HCO3 ABG Base Excess ABG Hemoglobin Oxyhemoglobin Sodium Potassium Chloride Carbon Dioxide BUN Creatinine Glucose POC Glucose 124 H 162 H 139 H Lactic Acid Calcium Phosphorus Magnesium Direct Bilirubin AST ALT Alkaline Phosphatase Lactate Dehydrogenase Troponin T C-Reactive Protein Total Protein Albumin Prealbumin Triglycerides Cholesterol LDL Cholesterol Direct HDL Cholesterol Urine pH Urine WBC (Auto) Urine Creatinine Urine Total Protein Fluid Total Protein Vancomycin Trough Rheumatoid Factor Complement C4 Miscellaneous Test Crossmatch 11/19/16 11/19/16 11/20/16 05:00 12:43 00:40 WBC RBC Hgb Hct MCV MCH MCHC RDW Plt Count Lymph % (Auto) [place] % (Auto) Lymph # [place] # Baso # Seg Neutrophils % Seg Neuts % (Manual) Lymphocytes % (Manual) Monocytes % (Manual) Eosinophils % (Manual) Basophils % (Manual) Nucleated RBC % Seg Neutrophils # Seg Neutrophils # Man Lymphocytes # (Manual) Monocytes # (Manual) Eosinophils # (Manual) PT INR Fibrinogen dRVVT Confirm Interp Factor V Activity POC ABG pH POC ABG pCO2 POC ABG pO2 ABG pO2 ABG HCO3 ABG Base Excess ABG Hemoglobin Oxyhemoglobin Sodium Potassium Chloride Carbon Dioxide BUN Creatinine Glucose POC Glucose 110 H 125 H 136 H Lactic Acid Calcium Phosphorus Magnesium Direct Bilirubin AST ALT Alkaline Phosphatase Lactate Dehydrogenase Troponin T C-Reactive Protein Total Protein Albumin Prealbumin Triglycerides Cholesterol LDL Cholesterol Direct HDL Cholesterol Urine pH Urine WBC (Auto) Urine Creatinine Urine Total Protein Fluid Total Protein Vancomycin Trough Rheumatoid Factor Complement C4 Miscellaneous Test Crossmatch 11/20/16 11/20/16 11/20/16 05:00 05:00 05:51 WBC 13.1 H RBC 2.74 L Hgb 7.7 L Hct 23.6 L MCV MCH MCHC RDW 16.9 H Plt Count Lymph % (Auto) [place] % (Auto) 10.8 H Lymph # [place] # 1.4 H Baso # Seg Neutrophils % Seg Neuts % (Manual) Lymphocytes % (Manual) Monocytes % (Manual) Eosinophils % (Manual) Basophils % (Manual) Nucleated RBC % Seg Neutrophils # 7.9 H Seg Neutrophils # Man Lymphocytes # (Manual) Monocytes # (Manual) Eosinophils # (Manual) PT INR Fibrinogen dRVVT Confirm Interp Factor V Activity POC ABG pH POC ABG pCO2 POC ABG pO2 ABG pO2 ABG HCO3 ABG Base Excess ABG Hemoglobin Oxyhemoglobin Sodium Potassium Chloride Carbon Dioxide BUN 31 H Creatinine 1.8 H Glucose 129 H POC Glucose 133 H Lactic Acid Calcium Phosphorus Magnesium Direct Bilirubin AST ALT Alkaline Phosphatase Lactate Dehydrogenase Troponin T C-Reactive Protein Total Protein Albumin Prealbumin Triglycerides Cholesterol LDL Cholesterol Direct HDL Cholesterol Urine pH Urine WBC (Auto) Urine Creatinine Urine Total Protein Fluid Total Protein Vancomycin Trough Rheumatoid Factor Complement C4 Miscellaneous Test Crossmatch 11/20/16 11/20/16 11/21/16 12:40 18:10 01:20 WBC RBC Hgb Hct MCV MCH MCHC RDW Plt Count Lymph % (Auto) [place] % (Auto) Lymph # [place] # Baso # Seg Neutrophils % Seg Neuts % (Manual) Lymphocytes % (Manual) Monocytes % (Manual) Eosinophils % (Manual) Basophils % (Manual) Nucleated RBC % Seg Neutrophils # Seg Neutrophils # Man Lymphocytes # (Manual) Monocytes # (Manual) Eosinophils # (Manual) PT INR Fibrinogen dRVVT Confirm Interp Factor V Activity POC ABG pH POC ABG pCO2 POC ABG pO2 ABG pO2 ABG HCO3 ABG Base Excess ABG Hemoglobin Oxyhemoglobin Sodium Potassium Chloride Carbon Dioxide BUN Creatinine Glucose POC Glucose 134 H 138 H 136 H Lactic Acid Calcium Phosphorus Magnesium Direct Bilirubin AST ALT Alkaline Phosphatase Lactate Dehydrogenase Troponin T C-Reactive Protein Total Protein Albumin Prealbumin Triglycerides Cholesterol LDL Cholesterol Direct HDL Cholesterol Urine pH Urine WBC (Auto) Urine Creatinine Urine Total Protein Fluid Total Protein Vancomycin Trough Rheumatoid Factor Complement C4 Miscellaneous Test Crossmatch 11/21/16 11/21/16 11/21/16 07:04 07:45 07:45 WBC 22.0 H RBC 2.91 L Hgb 8.2 L Hct 25.4 L MCV MCH MCHC RDW 17.1 H Plt Count Lymph % (Auto) [place] % (Auto) Lymph # [place] # Baso # Seg Neutrophils % Seg Neuts % (Manual) Lymphocytes % (Manual) 8.0 L Monocytes % (Manual) Eosinophils % (Manual) Basophils % (Manual) Nucleated RBC % Seg Neutrophils # Seg Neutrophils # Man 14.7 H Lymphocytes # (Manual) Monocytes # (Manual) 1.1 H Eosinophils # (Manual) PT INR Fibrinogen dRVVT Confirm Interp Factor V Activity POC ABG pH POC ABG pCO2 POC ABG pO2 ABG pO2 ABG HCO3 ABG Base Excess ABG Hemoglobin Oxyhemoglobin Sodium Potassium Chloride Carbon Dioxide BUN 42 H Creatinine 2.0 H Glucose POC Glucose 108 H Lactic Acid Calcium Phosphorus Magnesium Direct Bilirubin AST ALT Alkaline Phosphatase Lactate Dehydrogenase Troponin T C-Reactive Protein Total Protein Albumin Prealbumin Triglycerides Cholesterol LDL Cholesterol Direct HDL Cholesterol Urine pH Urine WBC (Auto) Urine Creatinine Urine Total Protein Fluid Total Protein Vancomycin Trough Rheumatoid Factor Complement C4 Miscellaneous Test Crossmatch 11/21/16 11/21/16 11/21/16 08:38 10:09 11:20 WBC RBC Hgb Hct MCV MCH MCHC RDW Plt Count Lymph % (Auto) [place] % (Auto) Lymph # [place] # Baso # Seg Neutrophils % Seg Neuts % (Manual) Lymphocytes % (Manual) Monocytes % (Manual) Eosinophils % (Manual) Basophils % (Manual) Nucleated RBC % Seg Neutrophils # Seg Neutrophils # Man Lymphocytes # (Manual) Monocytes # (Manual) Eosinophils # (Manual) PT INR Fibrinogen dRVVT Confirm Interp Factor V Activity POC ABG pH 7.346 L POC ABG pCO2 34.4 L POC ABG pO2 314 H ABG pO2 ABG HCO3 ABG Base Excess ABG Hemoglobin Oxyhemoglobin Sodium Potassium Chloride Carbon Dioxide BUN Creatinine Glucose POC Glucose 195 H 153 H Lactic Acid Calcium Phosphorus Magnesium Direct Bilirubin AST ALT Alkaline Phosphatase Lactate Dehydrogenase Troponin T C-Reactive Protein Total Protein Albumin Prealbumin Triglycerides Cholesterol LDL Cholesterol Direct HDL Cholesterol Urine pH Urine WBC (Auto) Urine Creatinine Urine Total Protein Fluid Total Protein Vancomycin Trough Rheumatoid Factor Complement C4 Miscellaneous Test Crossmatch 11/21/16 11/22/16 11/22/16 23:37 04:48 05:00 WBC 29.7 H RBC 2.73 L Hgb 7.5 L Hct 24.2 L MCV MCH 27 L MCHC RDW 17.4 H Plt Count Lymph % (Auto) [place] % (Auto) Lymph # [place] # Baso # Seg Neutrophils % Seg Neuts % (Manual) Lymphocytes % (Manual) 7.0 L Monocytes % (Manual) Eosinophils % (Manual) Basophils % (Manual) Nucleated RBC % Seg Neutrophils # Seg Neutrophils # Man 15.4 H Lymphocytes # (Manual) Monocytes # (Manual) Eosinophils # (Manual) PT INR Fibrinogen dRVVT Confirm Interp Factor V Activity POC ABG pH POC ABG pCO2 24.6 L POC ABG pO2 189 H ABG pO2 ABG HCO3 ABG Base Excess ABG Hemoglobin Oxyhemoglobin Sodium Potassium Chloride Carbon Dioxide BUN Creatinine Glucose POC Glucose 65 L Lactic Acid Calcium Phosphorus Magnesium Direct Bilirubin AST ALT Alkaline Phosphatase Lactate Dehydrogenase Troponin T C-Reactive Protein Total Protein Albumin Prealbumin Triglycerides Cholesterol LDL Cholesterol Direct HDL Cholesterol Urine pH Urine WBC (Auto) Urine Creatinine Urine Total Protein Fluid Total Protein Vancomycin Trough Rheumatoid Factor Complement C4 Miscellaneous Test Crossmatch 11/22/16 11/23/16 11/23/16 05:00 03:44 04:06 WBC RBC 2.52 L Hgb 7.2 L Hct 21.5 L MCV MCH MCHC RDW 17.1 H Plt Count Lymph % (Auto) [place] % (Auto) 12.4 H Lymph # [place] # 1.4 H Baso # Seg Neutrophils % Seg Neuts % (Manual) Lymphocytes % (Manual) Monocytes % (Manual) Eosinophils % (Manual) Basophils % (Manual) Nucleated RBC % Seg Neutrophils # Seg Neutrophils # Man Lymphocytes # (Manual) Monocytes # (Manual) Eosinophils # (Manual) PT INR Fibrinogen dRVVT Confirm Interp Factor V Activity POC ABG pH 7.493 H POC ABG pCO2 29.5 L POC ABG pO2 49 L ABG pO2 ABG HCO3 ABG Base Excess ABG Hemoglobin Oxyhemoglobin Sodium 134 L Potassium Chloride 95.9 L Carbon Dioxide 14 L D BUN 51 H Creatinine 2.6 H Glucose POC Glucose Lactic Acid Calcium Phosphorus Magnesium Direct Bilirubin AST ALT Alkaline Phosphatase Lactate Dehydrogenase Troponin T C-Reactive Protein Total Protein Albumin Prealbumin Triglycerides Cholesterol LDL Cholesterol Direct HDL Cholesterol Urine pH Urine WBC (Auto) Urine Creatinine Urine Total Protein Fluid Total Protein Vancomycin Trough Rheumatoid Factor Complement C4 Miscellaneous Test Crossmatch 11/23/16 11/23/16 11/24/16 04:06 11:29 06:39 WBC RBC Hgb Hct MCV MCH MCHC RDW Plt Count Lymph % (Auto) [place] % (Auto) Lymph # [place] # Baso # Seg Neutrophils % Seg Neuts % (Manual) Lymphocytes % (Manual) Monocytes % (Manual) Eosinophils % (Manual) Basophils % (Manual) Nucleated RBC % Seg Neutrophils # Seg Neutrophils # Man Lymphocytes # (Manual) Monocytes # (Manual) Eosinophils # (Manual) PT INR Fibrinogen dRVVT Confirm Interp Factor V Activity POC ABG pH POC ABG pCO2 POC ABG pO2 ABG pO2 ABG HCO3 ABG Base Excess ABG Hemoglobin Oxyhemoglobin Sodium 136 L Potassium Chloride 95.2 L Carbon Dioxide BUN 60 H Creatinine 2.9 H Glucose POC Glucose 69 L 305 H Lactic Acid Calcium Phosphorus Magnesium 1.60 L Direct Bilirubin AST ALT Alkaline Phosphatase Lactate Dehydrogenase Troponin T C-Reactive Protein Total Protein Albumin Prealbumin Triglycerides Cholesterol LDL Cholesterol Direct HDL Cholesterol Urine pH Urine WBC (Auto) Urine Creatinine Urine Total Protein Fluid Total Protein Vancomycin Trough Rheumatoid Factor Complement C4 Miscellaneous Test Crossmatch 11/24/16 11/24/16 11/24/16 06:43 08:08 08:08 WBC 11.2 H RBC 2.47 L Hgb 6.8 L Hct 20.6 L MCV MCH MCHC RDW 17.0 H Plt Count Lymph % (Auto) [place] % (Auto) 10.3 H Lymph # [place] # 1.2 H Baso # Seg Neutrophils % Seg Neuts % (Manual) Lymphocytes % (Manual) Monocytes % (Manual) Eosinophils % (Manual) Basophils % (Manual) Nucleated RBC % Seg Neutrophils # Seg Neutrophils # Man Lymphocytes # (Manual) Monocytes # (Manual) Eosinophils # (Manual) PT INR Fibrinogen dRVVT Confirm Interp Factor V Activity POC ABG pH POC ABG pCO2 POC ABG pO2 ABG pO2 ABG HCO3 ABG Base Excess ABG Hemoglobin Oxyhemoglobin Sodium 135 L Potassium Chloride 96.3 L Carbon Dioxide BUN 61 H Creatinine 3.1 H Glucose POC Glucose 62 L Lactic Acid Calcium 8.2 L Phosphorus Magnesium Direct Bilirubin AST ALT Alkaline Phosphatase Lactate Dehydrogenase Troponin T C-Reactive Protein Total Protein Albumin Prealbumin Triglycerides Cholesterol LDL Cholesterol Direct HDL Cholesterol Urine pH Urine WBC (Auto) Urine Creatinine Urine Total Protein Fluid Total Protein Vancomycin Trough Rheumatoid Factor Complement C4 Miscellaneous Test Crossmatch 11/24/16 11/24/16 11/24/16 08:34 11:20 12:41 WBC RBC Hgb Hct MCV MCH MCHC RDW Plt Count Lymph % (Auto) [place] % (Auto) Lymph # [place] # Baso # Seg Neutrophils % Seg Neuts % (Manual) Lymphocytes % (Manual) Monocytes % (Manual) Eosinophils % (Manual) Basophils % (Manual) Nucleated RBC % Seg Neutrophils # Seg Neutrophils # Man Lymphocytes # (Manual) Monocytes # (Manual) Eosinophils # (Manual) PT INR Fibrinogen dRVVT Confirm Interp Factor V Activity POC ABG pH POC ABG pCO2 POC ABG pO2 ABG pO2 ABG HCO3 ABG Base Excess ABG Hemoglobin Oxyhemoglobin Sodium Potassium Chloride Carbon Dioxide BUN Creatinine Glucose POC Glucose 108 H Lactic Acid Calcium Phosphorus Magnesium 1.60 L Direct Bilirubin AST ALT Alkaline Phosphatase Lactate Dehydrogenase Troponin T C-Reactive Protein Total Protein Albumin Prealbumin Triglycerides Cholesterol LDL Cholesterol Direct HDL Cholesterol Urine pH Urine WBC (Auto) Urine Creatinine Urine Total Protein Fluid Total Protein Vancomycin Trough Rheumatoid Factor Complement C4 Miscellaneous Test Crossmatch See Detail 11/25/16 11/25/16 11/25/16 00:03 04:42 04:42 WBC RBC 3.03 L Hgb 8.6 L Hct 25.3 L MCV MCH MCHC RDW 16.2 H Plt Count Lymph % (Auto) [place] % (Auto) 8.1 H Lymph # [place] # Baso # Seg Neutrophils % 71.3 H Seg Neuts % (Manual) Lymphocytes % (Manual) Monocytes % (Manual) Eosinophils % (Manual) Basophils % (Manual) Nucleated RBC % Seg Neutrophils # Seg Neutrophils # Man Lymphocytes # (Manual) Monocytes # (Manual) Eosinophils # (Manual) PT INR Fibrinogen dRVVT Confirm Interp Factor V Activity POC ABG pH POC ABG pCO2 POC ABG pO2 ABG pO2 ABG HCO3 ABG Base Excess ABG Hemoglobin Oxyhemoglobin Sodium Potassium Chloride Carbon Dioxide BUN 61 H Creatinine 3.0 H Glucose 102 H POC Glucose 113 H Lactic Acid Calcium 8.2 L Phosphorus Magnesium Direct Bilirubin AST ALT Alkaline Phosphatase 142 H Lactate Dehydrogenase Troponin T C-Reactive Protein Total Protein 5.7 L Albumin 1.5 L Prealbumin Triglycerides Cholesterol LDL Cholesterol Direct HDL Cholesterol Urine pH Urine WBC (Auto) Urine Creatinine Urine Total Protein Fluid Total Protein Vancomycin Trough Rheumatoid Factor Complement C4 Miscellaneous Test Crossmatch 11/25/16 11/25/16 11/25/16 05:12 11:31 14:12 WBC RBC Hgb Hct MCV MCH MCHC RDW Plt Count Lymph % (Auto) [place] % (Auto) Lymph # [place] # Baso # Seg Neutrophils % Seg Neuts % (Manual) Lymphocytes % (Manual) Monocytes % (Manual) Eosinophils % (Manual) Basophils % (Manual) Nucleated RBC % Seg Neutrophils # Seg Neutrophils # Man Lymphocytes # (Manual) Monocytes # (Manual) Eosinophils # (Manual) PT INR Fibrinogen dRVVT Confirm Interp Factor V Activity POC ABG pH 7.487 H POC ABG pCO2 POC ABG pO2 153 H ABG pO2 ABG HCO3 ABG Base Excess ABG Hemoglobin Oxyhemoglobin Sodium Potassium Chloride Carbon Dioxide BUN Creatinine Glucose POC Glucose 131 H 140 H Lactic Acid Calcium Phosphorus Magnesium Direct Bilirubin AST ALT Alkaline Phosphatase Lactate Dehydrogenase Troponin T C-Reactive Protein Total Protein Albumin Prealbumin Triglycerides Cholesterol LDL Cholesterol Direct HDL Cholesterol Urine pH Urine WBC (Auto) Urine Creatinine Urine Total Protein Fluid Total Protein Vancomycin Trough Rheumatoid Factor Complement C4 Miscellaneous Test Crossmatch 11/25/16 11/26/16 11/26/16 17:23 00:09 05:13 WBC RBC 2.94 L Hgb 8.4 L Hct 24.6 L MCV MCH MCHC RDW 16.4 H Plt Count Lymph % (Auto) [place] % (Auto) 12.3 H Lymph # [place] # 1.1 H Baso # Seg Neutrophils % Seg Neuts % (Manual) Lymphocytes % (Manual) Monocytes % (Manual) Eosinophils % (Manual) Basophils % (Manual) Nucleated RBC % Seg Neutrophils # Seg Neutrophils # Man Lymphocytes # (Manual) Monocytes # (Manual) Eosinophils # (Manual) PT INR Fibrinogen dRVVT Confirm Interp Factor V Activity POC ABG pH POC ABG pCO2 POC ABG pO2 ABG pO2 ABG HCO3 ABG Base Excess ABG Hemoglobin Oxyhemoglobin Sodium Potassium Chloride Carbon Dioxide BUN Creatinine Glucose POC Glucose 146 H 112 H Lactic Acid Calcium Phosphorus Magnesium Direct Bilirubin AST ALT Alkaline Phosphatase Lactate Dehydrogenase Troponin T C-Reactive Protein Total Protein Albumin Prealbumin Triglycerides Cholesterol LDL Cholesterol Direct HDL Cholesterol Urine pH Urine WBC (Auto) Urine Creatinine Urine Total Protein Fluid Total Protein Vancomycin Trough Rheumatoid Factor Complement C4 Miscellaneous Test Crossmatch 11/26/16 11/26/16 11/26/16 05:13 05:28 11:53 WBC RBC Hgb Hct MCV MCH MCHC RDW Plt Count Lymph % (Auto) [place] % (Auto) Lymph # [place] # Baso # Seg Neutrophils % Seg Neuts % (Manual) Lymphocytes % (Manual) Monocytes % (Manual) Eosinophils % (Manual) Basophils % (Manual) Nucleated RBC % Seg Neutrophils # Seg Neutrophils # Man Lymphocytes # (Manual) Monocytes # (Manual) Eosinophils # (Manual) PT INR Fibrinogen dRVVT Confirm Interp Factor V Activity POC ABG pH POC ABG pCO2 POC ABG pO2 ABG pO2 ABG HCO3 ABG Base Excess ABG Hemoglobin Oxyhemoglobin Sodium Potassium Chloride 97.8 L Carbon Dioxide BUN 37 H Creatinine 2.0 H Glucose 109 H POC Glucose 117 H 111 H Lactic Acid Calcium 7.9 L Phosphorus 1.80 L D Magnesium Direct Bilirubin AST ALT Alkaline Phosphatase Lactate Dehydrogenase Troponin T C-Reactive Protein Total Protein Albumin Prealbumin Triglycerides Cholesterol LDL Cholesterol Direct HDL Cholesterol Urine pH Urine WBC (Auto) Urine Creatinine Urine Total Protein Fluid Total Protein Vancomycin Trough Rheumatoid Factor Complement C4 Miscellaneous Test Crossmatch 11/26/16 11/27/16 11/27/16 17:14 04:50 06:02 WBC RBC Hgb Hct MCV MCH MCHC RDW Plt Count Lymph % (Auto) [place] % (Auto) Lymph # [place] # Baso # Seg Neutrophils % Seg Neuts % (Manual) Lymphocytes % (Manual) Monocytes % (Manual) Eosinophils % (Manual) Basophils % (Manual) Nucleated RBC % Seg Neutrophils # Seg Neutrophils # Man Lymphocytes # (Manual) Monocytes # (Manual) Eosinophils # (Manual) PT INR Fibrinogen dRVVT Confirm Interp Factor V Activity POC ABG pH POC ABG pCO2 POC ABG pO2 ABG pO2 75.2 L ABG HCO3 26.4 H ABG Base Excess ABG Hemoglobin 7.6 L Oxyhemoglobin 94.8 L Sodium Potassium Chloride Carbon Dioxide BUN 49 H Creatinine 2.3 H Glucose POC Glucose 115 H Lactic Acid Calcium Phosphorus 1.50 L Magnesium Direct Bilirubin AST ALT Alkaline Phosphatase Lactate Dehydrogenase Troponin T C-Reactive Protein Total Protein Albumin Prealbumin Triglycerides Cholesterol LDL Cholesterol Direct HDL Cholesterol Urine pH Urine WBC (Auto) Urine Creatinine Urine Total Protein Fluid Total Protein Vancomycin Trough Rheumatoid Factor Complement C4 Miscellaneous Test Crossmatch 11/27/16 11/27/16 11/27/16 06:02 11:25 17:25 WBC 11.6 H RBC 2.75 L Hgb 7.6 L Hct 23.4 L MCV MCH MCHC RDW 16.5 H Plt Count Lymph % (Auto) [place] % (Auto) Lymph # [place] # Baso # Seg Neutrophils % Seg Neuts % (Manual) Lymphocytes % (Manual) Monocytes % (Manual) Eosinophils % (Manual) Basophils % (Manual) Nucleated RBC % Seg Neutrophils # Seg Neutrophils # Man Lymphocytes # (Manual) Monocytes # (Manual) Eosinophils # (Manual) PT INR Fibrinogen dRVVT Confirm Interp Factor V Activity POC ABG pH POC ABG pCO2 POC ABG pO2 ABG pO2 ABG HCO3 ABG Base Excess ABG Hemoglobin Oxyhemoglobin Sodium Potassium Chloride Carbon Dioxide BUN Creatinine Glucose POC Glucose 114 H 126 H Lactic Acid Calcium Phosphorus Magnesium Direct Bilirubin AST ALT Alkaline Phosphatase Lactate Dehydrogenase Troponin T C-Reactive Protein Total Protein Albumin Prealbumin Triglycerides Cholesterol LDL Cholesterol Direct HDL Cholesterol Urine pH Urine WBC (Auto) Urine Creatinine Urine Total Protein Fluid Total Protein Vancomycin Trough Rheumatoid Factor Complement C4 Miscellaneous Test Crossmatch 11/28/16 11/28/16 11/28/16 04:45 05:33 05:44 WBC RBC Hgb Hct MCV MCH MCHC RDW Plt Count Lymph % (Auto) [place] % (Auto) Lymph # [place] # Baso # Seg Neutrophils % Seg Neuts % (Manual) Lymphocytes % (Manual) Monocytes % (Manual) Eosinophils % (Manual) Basophils % (Manual) Nucleated RBC % Seg Neutrophils # Seg Neutrophils # Man Lymphocytes # (Manual) Monocytes # (Manual) Eosinophils # (Manual) PT INR Fibrinogen dRVVT Confirm Interp Factor V Activity POC ABG pH POC ABG pCO2 POC ABG pO2 ABG pO2 99.3 H ABG HCO3 ABG Base Excess ABG Hemoglobin 8.3 L Oxyhemoglobin Sodium Potassium Chloride Carbon Dioxide BUN 63 H Creatinine 2.4 H Glucose 102 H POC Glucose 108 H Lactic Acid Calcium Phosphorus 1.80 L Magnesium Direct Bilirubin AST ALT Alkaline Phosphatase Lactate Dehydrogenase Troponin T C-Reactive Protein Total Protein Albumin Prealbumin Triglycerides Cholesterol LDL Cholesterol Direct HDL Cholesterol Urine pH Urine WBC (Auto) Urine Creatinine Urine Total Protein Fluid Total Protein Vancomycin Trough Rheumatoid Factor Complement C4 Miscellaneous Test Crossmatch 11/28/16 11/28/16 11/28/16 12:31 16:09 23:46 WBC RBC Hgb Hct MCV MCH MCHC RDW Plt Count Lymph % (Auto) [place] % (Auto) Lymph # [place] # Baso # Seg Neutrophils % Seg Neuts % (Manual) Lymphocytes % (Manual) Monocytes % (Manual) Eosinophils % (Manual) Basophils % (Manual) Nucleated RBC % Seg Neutrophils # Seg Neutrophils # Man Lymphocytes # (Manual) Monocytes # (Manual) Eosinophils # (Manual) PT INR Fibrinogen dRVVT Confirm Interp Factor V Activity POC ABG pH POC ABG pCO2 POC ABG pO2 ABG pO2 ABG HCO3 ABG Base Excess ABG Hemoglobin Oxyhemoglobin Sodium Potassium Chloride Carbon Dioxide BUN Creatinine Glucose POC Glucose 126 H 111 H 119 H Lactic Acid Calcium Phosphorus Magnesium Direct Bilirubin AST ALT Alkaline Phosphatase Lactate Dehydrogenase Troponin T C-Reactive Protein Total Protein Albumin Prealbumin Triglycerides Cholesterol LDL Cholesterol Direct HDL Cholesterol Urine pH Urine WBC (Auto) Urine Creatinine Urine Total Protein Fluid Total Protein Vancomycin Trough Rheumatoid Factor Complement C4 Miscellaneous Test Crossmatch 11/29/16 11/29/16 11/29/16 03:33 04:52 05:10 WBC RBC Hgb Hct MCV MCH MCHC RDW Plt Count Lymph % (Auto) [place] % (Auto) Lymph # [place] # Baso # Seg Neutrophils % Seg Neuts % (Manual) Lymphocytes % (Manual) Monocytes % (Manual) Eosinophils % (Manual) Basophils % (Manual) Nucleated RBC % Seg Neutrophils # Seg Neutrophils # Man Lymphocytes # (Manual) Monocytes # (Manual) Eosinophils # (Manual) PT INR Fibrinogen dRVVT Confirm Interp Factor V Activity POC ABG pH POC ABG pCO2 POC ABG pO2 ABG pO2 ABG HCO3 ABG Base Excess ABG Hemoglobin 7.0 L Oxyhemoglobin 94.9 L Sodium Potassium Chloride Carbon Dioxide BUN 73 H Creatinine 2.7 H Glucose POC Glucose 108 H Lactic Acid Calcium Phosphorus Magnesium Direct Bilirubin AST ALT Alkaline Phosphatase Lactate Dehydrogenase Troponin T C-Reactive Protein Total Protein Albumin Prealbumin Triglycerides Cholesterol LDL Cholesterol Direct HDL Cholesterol Urine pH Urine WBC (Auto) Urine Creatinine Urine Total Protein Fluid Total Protein Vancomycin Trough Rheumatoid Factor Complement C4 Miscellaneous Test Crossmatch 11/29/16 11/29/16 11/29/16 12:16 18:05 23:46 WBC RBC Hgb Hct MCV MCH MCHC RDW Plt Count Lymph % (Auto) [place] % (Auto) Lymph # [place] # Baso # Seg Neutrophils % Seg Neuts % (Manual) Lymphocytes % (Manual) Monocytes % (Manual) Eosinophils % (Manual) Basophils % (Manual) Nucleated RBC % Seg Neutrophils # Seg Neutrophils # Man Lymphocytes # (Manual) Monocytes # (Manual) Eosinophils # (Manual) PT INR Fibrinogen dRVVT Confirm Interp Factor V Activity POC ABG pH POC ABG pCO2 POC ABG pO2 ABG pO2 ABG HCO3 ABG Base Excess ABG Hemoglobin Oxyhemoglobin Sodium Potassium Chloride Carbon Dioxide BUN Creatinine Glucose POC Glucose 133 H 146 H 141 H Lactic Acid Calcium Phosphorus Magnesium Direct Bilirubin AST ALT Alkaline Phosphatase Lactate Dehydrogenase Troponin T C-Reactive Protein Total Protein Albumin Prealbumin Triglycerides Cholesterol LDL Cholesterol Direct HDL Cholesterol Urine pH Urine WBC (Auto) Urine Creatinine Urine Total Protein Fluid Total Protein Vancomycin Trough Rheumatoid Factor Complement C4 Miscellaneous Test Crossmatch 11/30/16 11/30/16 11/30/16 04:17 04:17 04:32 WBC 12.0 H RBC 2.80 L Hgb 7.8 L Hct 23.6 L MCV MCH MCHC RDW 16.6 H Plt Count Lymph % (Auto) [place] % (Auto) 11.3 H Lymph # [place] # 1.4 H Baso # Seg Neutrophils % Seg Neuts % (Manual) Lymphocytes % (Manual) Monocytes % (Manual) Eosinophils % (Manual) Basophils % (Manual) Nucleated RBC % Seg Neutrophils # 8.2 H Seg Neutrophils # Man Lymphocytes # (Manual) Monocytes # (Manual) Eosinophils # (Manual) PT INR Fibrinogen dRVVT Confirm Interp Factor V Activity POC ABG pH POC ABG pCO2 POC ABG pO2 ABG pO2 ABG HCO3 ABG Base Excess ABG Hemoglobin Oxyhemoglobin Sodium 169 H* D Potassium 5.1 H Chloride 121.5 H Carbon Dioxide BUN 34 H Creatinine 1.3 H D Glucose 133 H POC Glucose 131 H Lactic Acid Calcium 10.3 H Phosphorus Magnesium Direct Bilirubin AST ALT Alkaline Phosphatase Lactate Dehydrogenase Troponin T C-Reactive Protein Total Protein Albumin Prealbumin Triglycerides Cholesterol LDL Cholesterol Direct HDL Cholesterol Urine pH Urine WBC (Auto) Urine Creatinine Urine Total Protein Fluid Total Protein Vancomycin Trough Rheumatoid Factor Complement C4 Miscellaneous Test Crossmatch 11/30/16 11/30/16 11/30/16 05:45 11:10 17:26 WBC RBC Hgb Hct MCV MCH MCHC RDW Plt Count Lymph % (Auto) [place] % (Auto) Lymph # [place] # Baso # Seg Neutrophils % Seg Neuts % (Manual) Lymphocytes % (Manual) Monocytes % (Manual) Eosinophils % (Manual) Basophils % (Manual) Nucleated RBC % Seg Neutrophils # Seg Neutrophils # Man Lymphocytes # (Manual) Monocytes # (Manual) Eosinophils # (Manual) PT INR Fibrinogen dRVVT Confirm Interp Factor V Activity POC ABG pH POC ABG pCO2 POC ABG pO2 ABG pO2 ABG HCO3 ABG Base Excess ABG Hemoglobin Oxyhemoglobin Sodium Potassium Chloride Carbon Dioxide BUN 45 H Creatinine 1.6 H Glucose 131 H POC Glucose 146 H 134 H Lactic Acid Calcium Phosphorus Magnesium Direct Bilirubin AST ALT Alkaline Phosphatase Lactate Dehydrogenase Troponin T C-Reactive Protein Total Protein Albumin Prealbumin Triglycerides Cholesterol LDL Cholesterol Direct HDL Cholesterol Urine pH Urine WBC (Auto) Urine Creatinine Urine Total Protein Fluid Total Protein Vancomycin Trough Rheumatoid Factor Complement C4 Miscellaneous Test Crossmatch 11/30/16 12/01/16 12/01/16 23:35 00:06 03:35 WBC RBC Hgb Hct MCV MCH MCHC RDW Plt Count Lymph % (Auto) [place] % (Auto) Lymph # [place] # Baso # Seg Neutrophils % Seg Neuts % (Manual) Lymphocytes % (Manual) Monocytes % (Manual) Eosinophils % (Manual) Basophils % (Manual) Nucleated RBC % Seg Neutrophils # Seg Neutrophils # Man Lymphocytes # (Manual) Monocytes # (Manual) Eosinophils # (Manual) PT INR Fibrinogen dRVVT Confirm Interp Factor V Activity POC ABG pH POC ABG pCO2 POC ABG pO2 ABG pO2 ABG HCO3 ABG Base Excess ABG Hemoglobin 6.9 L Oxyhemoglobin Sodium Potassium Chloride Carbon Dioxide BUN 58 H Creatinine 1.8 H Glucose 146 H POC Glucose 151 H Lactic Acid Calcium Phosphorus Magnesium Direct Bilirubin AST ALT Alkaline Phosphatase Lactate Dehydrogenase Troponin T C-Reactive Protein Total Protein Albumin Prealbumin Triglycerides Cholesterol LDL Cholesterol Direct HDL Cholesterol Urine pH Urine WBC (Auto) Urine Creatinine Urine Total Protein Fluid Total Protein Vancomycin Trough Rheumatoid Factor Complement C4 Miscellaneous Test Crossmatch 12/01/16 12/01/16 12/01/16 03:35 05:47 11:52 WBC 12.3 H RBC 2.82 L Hgb 7.8 L Hct 23.7 L MCV MCH MCHC RDW 16.7 H Plt Count Lymph % (Auto) [place] % (Auto) 9.8 H Lymph # [place] # 1.2 H Baso # Seg Neutrophils % Seg Neuts % (Manual) Lymphocytes % (Manual) Monocytes % (Manual) Eosinophils % (Manual) Basophils % (Manual) Nucleated RBC % Seg Neutrophils # 8.4 H Seg Neutrophils # Man Lymphocytes # (Manual) Monocytes # (Manual) Eosinophils # (Manual) PT INR Fibrinogen dRVVT Confirm Interp Factor V Activity POC ABG pH POC ABG pCO2 POC ABG pO2 ABG pO2 ABG HCO3 ABG Base Excess ABG Hemoglobin Oxyhemoglobin Sodium Potassium Chloride Carbon Dioxide BUN Creatinine Glucose POC Glucose 152 H 152 H Lactic Acid Calcium Phosphorus Magnesium Direct Bilirubin AST ALT Alkaline Phosphatase Lactate Dehydrogenase Troponin T C-Reactive Protein Total Protein Albumin Prealbumin Triglycerides Cholesterol LDL Cholesterol Direct HDL Cholesterol Urine pH Urine WBC (Auto) Urine Creatinine Urine Total Protein Fluid Total Protein Vancomycin Trough Rheumatoid Factor Complement C4 Miscellaneous Test Crossmatch 12/01/16 12/01/16 12/02/16 17:40 23:41 05:00 WBC RBC Hgb Hct MCV MCH MCHC RDW Plt Count Lymph % (Auto) [place] % (Auto) Lymph # [place] # Baso # Seg Neutrophils % Seg Neuts % (Manual) Lymphocytes % (Manual) Monocytes % (Manual) Eosinophils % (Manual) Basophils % (Manual) Nucleated RBC % Seg Neutrophils # Seg Neutrophils # Man Lymphocytes # (Manual) Monocytes # (Manual) Eosinophils # (Manual) PT INR Fibrinogen dRVVT Confirm Interp Factor V Activity POC ABG pH POC ABG pCO2 POC ABG pO2 ABG pO2 ABG HCO3 ABG Base Excess ABG Hemoglobin Oxyhemoglobin Sodium Potassium Chloride Carbon Dioxide BUN 45 H Creatinine Glucose 115 H POC Glucose 140 H 144 H Lactic Acid Calcium Phosphorus Magnesium Direct Bilirubin AST ALT Alkaline Phosphatase Lactate Dehydrogenase Troponin T C-Reactive Protein Total Protein Albumin Prealbumin Triglycerides Cholesterol LDL Cholesterol Direct HDL Cholesterol Urine pH Urine WBC (Auto) Urine Creatinine Urine Total Protein Fluid Total Protein Vancomycin Trough Rheumatoid Factor Complement C4 Miscellaneous Test Crossmatch 12/02/16 12/02/16 12/02/16 05:31 11:20 17:38 WBC RBC Hgb Hct MCV MCH MCHC RDW Plt Count Lymph % (Auto) [place] % (Auto) Lymph # [place] # Baso # Seg Neutrophils % Seg Neuts % (Manual) Lymphocytes % (Manual) Monocytes % (Manual) Eosinophils % (Manual) Basophils % (Manual) Nucleated RBC % Seg Neutrophils # Seg Neutrophils # Man Lymphocytes # (Manual) Monocytes # (Manual) Eosinophils # (Manual) PT INR Fibrinogen dRVVT Confirm Interp Factor V Activity POC ABG pH POC ABG pCO2 POC ABG pO2 ABG pO2 ABG HCO3 ABG Base Excess ABG Hemoglobin Oxyhemoglobin Sodium Potassium Chloride Carbon Dioxide BUN Creatinine Glucose POC Glucose 136 H 177 H 139 H Lactic Acid Calcium Phosphorus Magnesium Direct Bilirubin AST ALT Alkaline Phosphatase Lactate Dehydrogenase Troponin T C-Reactive Protein Total Protein Albumin Prealbumin Triglycerides Cholesterol LDL Cholesterol Direct HDL Cholesterol Urine pH Urine WBC (Auto) Urine Creatinine Urine Total Protein Fluid Total Protein Vancomycin Trough Rheumatoid Factor Complement C4 Miscellaneous Test Crossmatch 12/02/16 12/03/16 12/03/16 23:43 04:00 04:00 WBC 20.4 H RBC 2.74 L Hgb 7.4 L Hct 23.6 L MCV MCH 27 L MCHC RDW 17.1 H Plt Count Lymph % (Auto) [place] % (Auto) Lymph # [place] # Baso # Seg Neutrophils % Seg Neuts % (Manual) 31.0 L Lymphocytes % (Manual) Monocytes % (Manual) Eosinophils % (Manual) Basophils % (Manual) Nucleated RBC % Seg Neutrophils # Seg Neutrophils # Man Lymphocytes # (Manual) Monocytes # (Manual) Eosinophils # (Manual) PT INR Fibrinogen dRVVT Confirm Interp Factor V Activity POC ABG pH POC ABG pCO2 POC ABG pO2 ABG pO2 ABG HCO3 ABG Base Excess ABG Hemoglobin Oxyhemoglobin Sodium Potassium Chloride Carbon Dioxide BUN 61 H Creatinine 1.6 H Glucose 119 H POC Glucose 158 H Lactic Acid Calcium Phosphorus Magnesium Direct Bilirubin AST ALT Alkaline Phosphatase Lactate Dehydrogenase Troponin T C-Reactive Protein Total Protein Albumin Prealbumin Triglycerides Cholesterol LDL Cholesterol Direct HDL Cholesterol Urine pH Urine WBC (Auto) Urine Creatinine Urine Total Protein Fluid Total Protein Vancomycin Trough Rheumatoid Factor Complement C4 Miscellaneous Test Crossmatch 12/03/16 12/03/16 12/03/16 05:02 12:11 18:16 WBC RBC Hgb Hct MCV MCH MCHC RDW Plt Count Lymph % (Auto) [place] % (Auto) Lymph # [place] # Baso # Seg Neutrophils % Seg Neuts % (Manual) Lymphocytes % (Manual) Monocytes % (Manual) Eosinophils % (Manual) Basophils % (Manual) Nucleated RBC % Seg Neutrophils # Seg Neutrophils # Man Lymphocytes # (Manual) Monocytes # (Manual) Eosinophils # (Manual) PT INR Fibrinogen dRVVT Confirm Interp Factor V Activity POC ABG pH POC ABG pCO2 POC ABG pO2 ABG pO2 ABG HCO3 ABG Base Excess ABG Hemoglobin Oxyhemoglobin Sodium Potassium Chloride Carbon Dioxide BUN Creatinine Glucose POC Glucose 146 H 157 H 124 H Lactic Acid Calcium Phosphorus Magnesium Direct Bilirubin AST ALT Alkaline Phosphatase Lactate Dehydrogenase Troponin T C-Reactive Protein Total Protein Albumin Prealbumin Triglycerides Cholesterol LDL Cholesterol Direct HDL Cholesterol Urine pH Urine WBC (Auto) Urine Creatinine Urine Total Protein Fluid Total Protein Vancomycin Trough Rheumatoid Factor Complement C4 Miscellaneous Test Crossmatch 12/03/16 12/04/16 12/04/16 23:41 04:00 04:45 WBC RBC Hgb Hct MCV MCH MCHC RDW Plt Count Lymph % (Auto) [place] % (Auto) Lymph # [place] # Baso # Seg Neutrophils % Seg Neuts % (Manual) Lymphocytes % (Manual) Monocytes % (Manual) Eosinophils % (Manual) Basophils % (Manual) Nucleated RBC % Seg Neutrophils # Seg Neutrophils # Man Lymphocytes # (Manual) Monocytes # (Manual) Eosinophils # (Manual) PT INR Fibrinogen dRVVT Confirm Interp Factor V Activity POC ABG pH POC ABG pCO2 POC ABG pO2 ABG pO2 ABG HCO3 ABG Base Excess ABG Hemoglobin Oxyhemoglobin Sodium Potassium Chloride Carbon Dioxide BUN 76 H Creatinine 1.6 H Glucose POC Glucose 130 H 136 H Lactic Acid Calcium Phosphorus Magnesium Direct Bilirubin AST ALT Alkaline Phosphatase 155 H Lactate Dehydrogenase Troponin T C-Reactive Protein Total Protein 5.5 L Albumin 1.5 L Prealbumin Triglycerides Cholesterol LDL Cholesterol Direct HDL Cholesterol Urine pH Urine WBC (Auto) Urine Creatinine Urine Total Protein Fluid Total Protein Vancomycin Trough Rheumatoid Factor Complement C4 Miscellaneous Test Crossmatch 12/04/16 12/04/16 12/05/16 12:08 17:23 00:10 WBC RBC Hgb Hct MCV MCH MCHC RDW Plt Count Lymph % (Auto) [place] % (Auto) Lymph # [place] # Baso # Seg Neutrophils % Seg Neuts % (Manual) Lymphocytes % (Manual) Monocytes % (Manual) Eosinophils % (Manual) Basophils % (Manual) Nucleated RBC % Seg Neutrophils # Seg Neutrophils # Man Lymphocytes # (Manual) Monocytes # (Manual) Eosinophils # (Manual) PT INR Fibrinogen dRVVT Confirm Interp Factor V Activity POC ABG pH POC ABG pCO2 POC ABG pO2 ABG pO2 ABG HCO3 ABG Base Excess ABG Hemoglobin Oxyhemoglobin Sodium Potassium Chloride Carbon Dioxide BUN Creatinine Glucose POC Glucose 114 H 129 H 124 H Lactic Acid Calcium Phosphorus Magnesium Direct Bilirubin AST ALT Alkaline Phosphatase Lactate Dehydrogenase Troponin T C-Reactive Protein Total Protein Albumin Prealbumin Triglycerides Cholesterol LDL Cholesterol Direct HDL Cholesterol Urine pH Urine WBC (Auto) Urine Creatinine Urine Total Protein Fluid Total Protein Vancomycin Trough Rheumatoid Factor Complement C4 Miscellaneous Test Crossmatch 12/05/16 12/05/16 12/05/16 05:00 05:00 05:18 WBC RBC Hgb Hct MCV MCH MCHC RDW Plt Count Lymph % (Auto) [place] % (Auto) Lymph # [place] # Baso # Seg Neutrophils % Seg Neuts % (Manual) Lymphocytes % (Manual) Monocytes % (Manual) Eosinophils % (Manual) Basophils % (Manual) Nucleated RBC % Seg Neutrophils # Seg Neutrophils # Man Lymphocytes # (Manual) Monocytes # (Manual) Eosinophils # (Manual) PT INR Fibrinogen dRVVT Confirm Interp Factor V Activity POC ABG pH POC ABG pCO2 POC ABG pO2 ABG pO2 ABG HCO3 ABG Base Excess ABG Hemoglobin Oxyhemoglobin Sodium Potassium Chloride Carbon Dioxide 21 L BUN 85 H Creatinine 1.9 H Glucose 131 H POC Glucose 154 H Lactic Acid Calcium Phosphorus Magnesium Direct Bilirubin AST ALT Alkaline Phosphatase Lactate Dehydrogenase Troponin T C-Reactive Protein 19.30 H Total Protein Albumin Prealbumin Triglycerides Cholesterol LDL Cholesterol Direct HDL Cholesterol Urine pH Urine WBC (Auto) Urine Creatinine Urine Total Protein Fluid Total Protein Vancomycin Trough Rheumatoid Factor Complement C4 Miscellaneous Test Crossmatch 12/05/16 12/05/16 12/05/16 11:43 17:46 23:25 WBC RBC Hgb Hct MCV MCH MCHC RDW Plt Count Lymph % (Auto) [place] % (Auto) Lymph # [place] # Baso # Seg Neutrophils % Seg Neuts % (Manual) Lymphocytes % (Manual) Monocytes % (Manual) Eosinophils % (Manual) Basophils % (Manual) Nucleated RBC % Seg Neutrophils # Seg Neutrophils # Man Lymphocytes # (Manual) Monocytes # (Manual) Eosinophils # (Manual) PT INR Fibrinogen dRVVT Confirm Interp Factor V Activity POC ABG pH POC ABG pCO2 POC ABG pO2 ABG pO2 ABG HCO3 ABG Base Excess ABG Hemoglobin Oxyhemoglobin Sodium Potassium Chloride Carbon Dioxide BUN Creatinine Glucose POC Glucose 117 H 113 H 111 H Lactic Acid Calcium Phosphorus Magnesium Direct Bilirubin AST ALT Alkaline Phosphatase Lactate Dehydrogenase Troponin T C-Reactive Protein Total Protein Albumin Prealbumin Triglycerides Cholesterol LDL Cholesterol Direct HDL Cholesterol Urine pH Urine WBC (Auto) Urine Creatinine Urine Total Protein Fluid Total Protein Vancomycin Trough Rheumatoid Factor Complement C4 Miscellaneous Test Crossmatch 12/05/16 12/06/16 12/06/16 Unknown 04:58 06:00 WBC RBC Hgb Hct MCV MCH MCHC RDW Plt Count Lymph % (Auto) [place] % (Auto) Lymph # [place] # Baso # Seg Neutrophils % Seg Neuts % (Manual) Lymphocytes % (Manual) Monocytes % (Manual) Eosinophils % (Manual) Basophils % (Manual) Nucleated RBC % Seg Neutrophils # Seg Neutrophils # Man Lymphocytes # (Manual) Monocytes # (Manual) Eosinophils # (Manual) PT INR Fibrinogen dRVVT Confirm Interp Factor V Activity POC ABG pH POC ABG pCO2 POC ABG pO2 ABG pO2 75.2 L ABG HCO3 ABG Base Excess -3.4 L ABG Hemoglobin 7.4 L Oxyhemoglobin 94.5 L Sodium Potassium Chloride Carbon Dioxide 20 L BUN 99 H Creatinine 2.1 H Glucose 126 H POC Glucose 145 H Lactic Acid Calcium Phosphorus 4.80 H Magnesium Direct Bilirubin AST ALT Alkaline Phosphatase Lactate Dehydrogenase Troponin T C-Reactive Protein Total Protein Albumin Prealbumin Triglycerides Cholesterol LDL Cholesterol Direct HDL Cholesterol Urine pH Urine WBC (Auto) Urine Creatinine Urine Total Protein Fluid Total Protein Vancomycin Trough Rheumatoid Factor Complement C4 Miscellaneous Test Crossmatch 12/06/16 12/06/16 12/06/16 06:46 11:54 17:55 WBC RBC Hgb 8.3 L Hct 26.4 L MCV MCH MCHC RDW Plt Count Lymph % (Auto) [place] % (Auto) Lymph # [place] # Baso # Seg Neutrophils % Seg Neuts % (Manual) Lymphocytes % (Manual) Monocytes % (Manual) Eosinophils % (Manual) Basophils % (Manual) Nucleated RBC % Seg Neutrophils # Seg Neutrophils # Man Lymphocytes # (Manual) Monocytes # (Manual) Eosinophils # (Manual) PT INR Fibrinogen dRVVT Confirm Interp Factor V Activity POC ABG pH POC ABG pCO2 POC ABG pO2 ABG pO2 ABG HCO3 ABG Base Excess ABG Hemoglobin Oxyhemoglobin Sodium Potassium Chloride Carbon Dioxide BUN Creatinine Glucose POC Glucose 126 H 157 H Lactic Acid Calcium Phosphorus Magnesium Direct Bilirubin AST ALT Alkaline Phosphatase Lactate Dehydrogenase Troponin T C-Reactive Protein Total Protein Albumin Prealbumin Triglycerides Cholesterol LDL Cholesterol Direct HDL Cholesterol Urine pH Urine WBC (Auto) Urine Creatinine Urine Total Protein Fluid Total Protein Vancomycin Trough Rheumatoid Factor Complement C4 Miscellaneous Test Crossmatch 12/06/16 12/07/16 12/07/16 23:59 05:34 06:30 WBC RBC Hgb Hct MCV MCH MCHC RDW Plt Count Lymph % (Auto) [place] % (Auto) Lymph # [place] # Baso # Seg Neutrophils % Seg Neuts % (Manual) Lymphocytes % (Manual) Monocytes % (Manual) Eosinophils % (Manual) Basophils % (Manual) Nucleated RBC % Seg Neutrophils # Seg Neutrophils # Man Lymphocytes # (Manual) Monocytes # (Manual) Eosinophils # (Manual) PT INR Fibrinogen dRVVT Confirm Interp Factor V Activity POC ABG pH POC ABG pCO2 POC ABG pO2 ABG pO2 ABG HCO3 ABG Base Excess ABG Hemoglobin Oxyhemoglobin Sodium Potassium Chloride Carbon Dioxide BUN 67 H Creatinine 1.4 H Glucose 126 H POC Glucose 129 H 129 H Lactic Acid Calcium Phosphorus Magnesium Direct Bilirubin AST ALT Alkaline Phosphatase Lactate Dehydrogenase Troponin T C-Reactive Protein Total Protein Albumin Prealbumin Triglycerides Cholesterol LDL Cholesterol Direct HDL Cholesterol Urine pH Urine WBC (Auto) Urine Creatinine Urine Total Protein Fluid Total Protein Vancomycin Trough Rheumatoid Factor Complement C4 Miscellaneous Test Crossmatch 12/07/16 12/07/16 12/07/16 06:30 08:00 09:45 WBC 18.8 H RBC 2.52 L Hgb 6.9 L 6.8 L Hct 21.2 L 21.1 L MCV MCH 27 L MCHC RDW 18.0 H Plt Count Lymph % (Auto) [place] % (Auto) 9.9 H Lymph # [place] # 1.9 H Baso # Seg Neutrophils % 71.8 H Seg Neuts % (Manual) Lymphocytes % (Manual) Monocytes % (Manual) Eosinophils % (Manual) Basophils % (Manual) Nucleated RBC % Seg Neutrophils # 13.5 H Seg Neutrophils # Man Lymphocytes # (Manual) Monocytes # (Manual) Eosinophils # (Manual) PT INR Fibrinogen dRVVT Confirm Interp Factor V Activity POC ABG pH POC ABG pCO2 POC ABG pO2 ABG pO2 ABG HCO3 ABG Base Excess ABG Hemoglobin Oxyhemoglobin Sodium Potassium Chloride Carbon Dioxide BUN Creatinine Glucose POC Glucose Lactic Acid Calcium Phosphorus Magnesium Direct Bilirubin AST ALT Alkaline Phosphatase Lactate Dehydrogenase Troponin T C-Reactive Protein Total Protein Albumin Prealbumin Triglycerides Cholesterol LDL Cholesterol Direct HDL Cholesterol Urine pH Urine WBC (Auto) Urine Creatinine Urine Total Protein Fluid Total Protein Vancomycin Trough Rheumatoid Factor Complement C4 Miscellaneous Test Crossmatch See Detail 12/07/16 12/07/16 12/07/16 11:44 18:19 23:59 WBC RBC Hgb Hct MCV MCH MCHC RDW Plt Count Lymph % (Auto) [place] % (Auto) Lymph # [place] # Baso # Seg Neutrophils % Seg Neuts % (Manual) Lymphocytes % (Manual) Monocytes % (Manual) Eosinophils % (Manual) Basophils % (Manual) Nucleated RBC % Seg Neutrophils # Seg Neutrophils # Man Lymphocytes # (Manual) Monocytes # (Manual) Eosinophils # (Manual) PT INR Fibrinogen dRVVT Confirm Interp Factor V Activity POC ABG pH POC ABG pCO2 POC ABG pO2 ABG pO2 ABG HCO3 ABG Base Excess ABG Hemoglobin Oxyhemoglobin Sodium Potassium Chloride Carbon Dioxide BUN Creatinine Glucose POC Glucose 137 H 138 H 133 H Lactic Acid Calcium Phosphorus Magnesium Direct Bilirubin AST ALT Alkaline Phosphatase Lactate Dehydrogenase Troponin T C-Reactive Protein Total Protein Albumin Prealbumin Triglycerides Cholesterol LDL Cholesterol Direct HDL Cholesterol Urine pH Urine WBC (Auto) Urine Creatinine Urine Total Protein Fluid Total Protein Vancomycin Trough Rheumatoid Factor Complement C4 Miscellaneous Test Crossmatch 12/08/16 12/08/16 12/08/16 05:25 05:30 05:30 WBC 23.8 H RBC 2.88 L Hgb 8.1 L Hct 24.3 L MCV MCH MCHC RDW 16.7 H Plt Count Lymph % (Auto) [place] % (Auto) Lymph # [place] # Baso # Seg Neutrophils % Seg Neuts % (Manual) 76.0 H Lymphocytes % (Manual) 9.0 L Monocytes % (Manual) 9.0 H Eosinophils % (Manual) Basophils % (Manual) Nucleated RBC % Seg Neutrophils # Seg Neutrophils # Man 18.1 H Lymphocytes # (Manual) Monocytes # (Manual) 2.1 H Eosinophils # (Manual) PT INR Fibrinogen dRVVT Confirm Interp Factor V Activity POC ABG pH POC ABG pCO2 POC ABG pO2 ABG pO2 ABG HCO3 ABG Base Excess ABG Hemoglobin Oxyhemoglobin Sodium Potassium Chloride Carbon Dioxide 21 L BUN 76 H Creatinine 1.6 H Glucose 133 H POC Glucose 177 H Lactic Acid Calcium Phosphorus Magnesium Direct Bilirubin AST ALT Alkaline Phosphatase Lactate Dehydrogenase Troponin T C-Reactive Protein Total Protein Albumin Prealbumin Triglycerides Cholesterol LDL Cholesterol Direct HDL Cholesterol Urine pH Urine WBC (Auto) Urine Creatinine Urine Total Protein Fluid Total Protein Vancomycin Trough Rheumatoid Factor Complement C4 Miscellaneous Test Crossmatch 12/08/16 12/08/16 12/09/16 11:45 18:00 00:00 WBC RBC Hgb Hct MCV MCH MCHC RDW Plt Count Lymph % (Auto) [place] % (Auto) Lymph # [place] # Baso # Seg Neutrophils % Seg Neuts % (Manual) Lymphocytes % (Manual) Monocytes % (Manual) Eosinophils % (Manual) Basophils % (Manual) Nucleated RBC % Seg Neutrophils # Seg Neutrophils # Man Lymphocytes # (Manual) Monocytes # (Manual) Eosinophils # (Manual) PT INR Fibrinogen dRVVT Confirm Interp Factor V Activity POC ABG pH POC ABG pCO2 POC ABG pO2 ABG pO2 ABG HCO3 ABG Base Excess ABG Hemoglobin Oxyhemoglobin Sodium Potassium Chloride Carbon Dioxide BUN Creatinine Glucose POC Glucose 163 H 123 H 137 H Lactic Acid Calcium Phosphorus Magnesium Direct Bilirubin AST ALT Alkaline Phosphatase Lactate Dehydrogenase Troponin T C-Reactive Protein Total Protein Albumin Prealbumin Triglycerides Cholesterol LDL Cholesterol Direct HDL Cholesterol Urine pH Urine WBC (Auto) Urine Creatinine Urine Total Protein Fluid Total Protein Vancomycin Trough Rheumatoid Factor Complement C4 Miscellaneous Test Crossmatch 12/09/16 12/09/16 12/09/16 05:34 06:00 06:00 WBC 15.5 H RBC 2.87 L Hgb 8.0 L Hct 24.2 L MCV MCH MCHC RDW 17.2 H Plt Count Lymph % (Auto) [place] % (Auto) 11.6 H Lymph # [place] # 1.8 H Baso # Seg Neutrophils % 70.8 H Seg Neuts % (Manual) Lymphocytes % (Manual) Monocytes % (Manual) Eosinophils % (Manual) Basophils % (Manual) Nucleated RBC % Seg Neutrophils # 11.0 H Seg Neutrophils # Man Lymphocytes # (Manual) Monocytes # (Manual) Eosinophils # (Manual) PT INR Fibrinogen dRVVT Confirm Interp Factor V Activity POC ABG pH POC ABG pCO2 POC ABG pO2 ABG pO2 ABG HCO3 ABG Base Excess ABG Hemoglobin Oxyhemoglobin Sodium Potassium Chloride Carbon Dioxide BUN 51 H Creatinine Glucose 117 H POC Glucose 136 H Lactic Acid Calcium Phosphorus Magnesium Direct Bilirubin AST ALT Alkaline Phosphatase Lactate Dehydrogenase Troponin T C-Reactive Protein Total Protein Albumin Prealbumin Triglycerides Cholesterol LDL Cholesterol Direct HDL Cholesterol Urine pH Urine WBC (Auto) Urine Creatinine Urine Total Protein Fluid Total Protein Vancomycin Trough Rheumatoid Factor Complement C4 Miscellaneous Test Crossmatch 12/09/16 12/09/16 12/09/16 12:29 17:52 23:10 WBC RBC Hgb Hct MCV MCH MCHC RDW Plt Count Lymph % (Auto) [place] % (Auto) Lymph # [place] # Baso # Seg Neutrophils % Seg Neuts % (Manual) Lymphocytes % (Manual) Monocytes % (Manual) Eosinophils % (Manual) Basophils % (Manual) Nucleated RBC % Seg Neutrophils # Seg Neutrophils # Man Lymphocytes # (Manual) Monocytes # (Manual) Eosinophils # (Manual) PT INR Fibrinogen dRVVT Confirm Interp Factor V Activity POC ABG pH POC ABG pCO2 POC ABG pO2 ABG pO2 ABG HCO3 ABG Base Excess ABG Hemoglobin Oxyhemoglobin Sodium Potassium Chloride Carbon Dioxide BUN Creatinine Glucose POC Glucose 139 H 140 H 129 H Lactic Acid Calcium Phosphorus Magnesium Direct Bilirubin AST ALT Alkaline Phosphatase Lactate Dehydrogenase Troponin T C-Reactive Protein Total Protein Albumin Prealbumin Triglycerides Cholesterol LDL Cholesterol Direct HDL Cholesterol Urine pH Urine WBC (Auto) Urine Creatinine Urine Total Protein Fluid Total Protein Vancomycin Trough Rheumatoid Factor Complement C4 Miscellaneous Test Crossmatch 12/10/16 12/10/16 12/10/16 05:00 05:00 06:54 WBC 15.7 H RBC 2.87 L Hgb 8.2 L Hct 24.4 L MCV MCH MCHC RDW 17.2 H Plt Count Lymph % (Auto) [place] % (Auto) 8.3 H Lymph # [place] # 1.3 H Baso # Seg Neutrophils % 72.8 H Seg Neuts % (Manual) Lymphocytes % (Manual) Monocytes % (Manual) Eosinophils % (Manual) Basophils % (Manual) Nucleated RBC % Seg Neutrophils # 11.4 H Seg Neutrophils # Man Lymphocytes # (Manual) Monocytes # (Manual) Eosinophils # (Manual) PT INR Fibrinogen dRVVT Confirm Interp Factor V Activity POC ABG pH POC ABG pCO2 POC ABG pO2 ABG pO2 ABG HCO3 ABG Base Excess ABG Hemoglobin Oxyhemoglobin Sodium Potassium Chloride Carbon Dioxide BUN 64 H Creatinine 1.4 H Glucose 134 H POC Glucose 154 H Lactic Acid Calcium Phosphorus Magnesium Direct Bilirubin AST ALT Alkaline Phosphatase Lactate Dehydrogenase Troponin T C-Reactive Protein Total Protein Albumin Prealbumin Triglycerides Cholesterol LDL Cholesterol Direct HDL Cholesterol Urine pH Urine WBC (Auto) Urine Creatinine Urine Total Protein Fluid Total Protein Vancomycin Trough Rheumatoid Factor Complement C4 Miscellaneous Test Crossmatch 12/10/16 12/10/16 12/10/16 11:58 17:29 23:52 WBC RBC Hgb Hct MCV MCH MCHC RDW Plt Count Lymph % (Auto) [place] % (Auto) Lymph # [place] # Baso # Seg Neutrophils % Seg Neuts % (Manual) Lymphocytes % (Manual) Monocytes % (Manual) Eosinophils % (Manual) Basophils % (Manual) Nucleated RBC % Seg Neutrophils # Seg Neutrophils # Man Lymphocytes # (Manual) Monocytes # (Manual) Eosinophils # (Manual) PT INR Fibrinogen dRVVT Confirm Interp Factor V Activity POC ABG pH POC ABG pCO2 POC ABG pO2 ABG pO2 ABG HCO3 ABG Base Excess ABG Hemoglobin Oxyhemoglobin Sodium Potassium Chloride Carbon Dioxide BUN Creatinine Glucose POC Glucose 144 H 163 H 125 H Lactic Acid Calcium Phosphorus Magnesium Direct Bilirubin AST ALT Alkaline Phosphatase Lactate Dehydrogenase Troponin T C-Reactive Protein Total Protein Albumin Prealbumin Triglycerides Cholesterol LDL Cholesterol Direct HDL Cholesterol Urine pH Urine WBC (Auto) Urine Creatinine Urine Total Protein Fluid Total Protein Vancomycin Trough Rheumatoid Factor Complement C4 Miscellaneous Test Crossmatch 12/11/16 12/11/16 12/11/16 05:38 06:30 06:30 WBC 14.4 H RBC 2.76 L Hgb 7.7 L Hct 23.4 L MCV MCH MCHC RDW 17.2 H Plt Count Lymph % (Auto) [place] % (Auto) 8.8 H Lymph # [place] # 1.3 H Baso # Seg Neutrophils % 72.5 H Seg Neuts % (Manual) Lymphocytes % (Manual) Monocytes % (Manual) Eosinophils % (Manual) Basophils % (Manual) Nucleated RBC % Seg Neutrophils # 10.5 H Seg Neutrophils # Man Lymphocytes # (Manual) Monocytes # (Manual) Eosinophils # (Manual) PT INR Fibrinogen dRVVT Confirm Interp Factor V Activity POC ABG pH POC ABG pCO2 POC ABG pO2 ABG pO2 ABG HCO3 ABG Base Excess ABG Hemoglobin Oxyhemoglobin Sodium Potassium Chloride Carbon Dioxide BUN 43 H Creatinine Glucose 124 H POC Glucose 141 H Lactic Acid Calcium 8.3 L Phosphorus Magnesium 1.60 L Direct Bilirubin AST ALT Alkaline Phosphatase Lactate Dehydrogenase Troponin T C-Reactive Protein Total Protein Albumin Prealbumin Triglycerides Cholesterol LDL Cholesterol Direct HDL Cholesterol Urine pH Urine WBC (Auto) Urine Creatinine Urine Total Protein Fluid Total Protein Vancomycin Trough Rheumatoid Factor Complement C4 Miscellaneous Test Crossmatch 12/11/16 12/11/16 12/11/16 11:15 17:59 23:48 WBC RBC Hgb Hct MCV MCH MCHC RDW Plt Count Lymph % (Auto) [place] % (Auto) Lymph # [place] # Baso # Seg Neutrophils % Seg Neuts % (Manual) Lymphocytes % (Manual) Monocytes % (Manual) Eosinophils % (Manual) Basophils % (Manual) Nucleated RBC % Seg Neutrophils # Seg Neutrophils # Man Lymphocytes # (Manual) Monocytes # (Manual) Eosinophils # (Manual) PT INR Fibrinogen dRVVT Confirm Interp Factor V Activity POC ABG pH POC ABG pCO2 POC ABG pO2 ABG pO2 ABG HCO3 ABG Base Excess ABG Hemoglobin Oxyhemoglobin Sodium Potassium Chloride Carbon Dioxide BUN Creatinine Glucose POC Glucose 188 H 106 H 119 H Lactic Acid Calcium Phosphorus Magnesium Direct Bilirubin AST ALT Alkaline Phosphatase Lactate Dehydrogenase Troponin T C-Reactive Protein Total Protein Albumin Prealbumin Triglycerides Cholesterol LDL Cholesterol Direct HDL Cholesterol Urine pH Urine WBC (Auto) Urine Creatinine Urine Total Protein Fluid Total Protein Vancomycin Trough Rheumatoid Factor Complement C4 Miscellaneous Test Crossmatch 12/12/16 12/12/16 12/12/16 05:00 06:01 12:20 WBC 16.7 H RBC 2.87 L Hgb 8.0 L Hct 24.2 L MCV MCH MCHC RDW 17.6 H Plt Count Lymph % (Auto) [place] % (Auto) Lymph # [place] # 1.2 H Baso # Seg Neutrophils % 75.3 H Seg Neuts % (Manual) Lymphocytes % (Manual) Monocytes % (Manual) Eosinophils % (Manual) Basophils % (Manual) Nucleated RBC % Seg Neutrophils # 12.6 H Seg Neutrophils # Man Lymphocytes # (Manual) Monocytes # (Manual) Eosinophils # (Manual) PT INR Fibrinogen dRVVT Confirm Interp Factor V Activity POC ABG pH POC ABG pCO2 POC ABG pO2 ABG pO2 ABG HCO3 ABG Base Excess ABG Hemoglobin Oxyhemoglobin Sodium Potassium Chloride Carbon Dioxide BUN Creatinine Glucose POC Glucose 134 H 149 H Lactic Acid Calcium Phosphorus Magnesium Direct Bilirubin AST ALT Alkaline Phosphatase Lactate Dehydrogenase Troponin T C-Reactive Protein Total Protein Albumin Prealbumin Triglycerides Cholesterol LDL Cholesterol Direct HDL Cholesterol Urine pH Urine WBC (Auto) Urine Creatinine Urine Total Protein Fluid Total Protein Vancomycin Trough Rheumatoid Factor Complement C4 Miscellaneous Test Crossmatch 12/12/16 12/12/16 12/12/16 17:38 23:01 Unknown WBC RBC Hgb Hct MCV MCH MCHC RDW Plt Count Lymph % (Auto) [place] % (Auto) Lymph # [place] # Baso # Seg Neutrophils % Seg Neuts % (Manual) Lymphocytes % (Manual) Monocytes % (Manual) Eosinophils % (Manual) Basophils % (Manual) Nucleated RBC % Seg Neutrophils # Seg Neutrophils # Man Lymphocytes # (Manual) Monocytes # (Manual) Eosinophils # (Manual) PT INR Fibrinogen dRVVT Confirm Interp Factor V Activity POC ABG pH POC ABG pCO2 POC ABG pO2 ABG pO2 ABG HCO3 ABG Base Excess ABG Hemoglobin Oxyhemoglobin Sodium Potassium Chloride Carbon Dioxide BUN 60 H Creatinine 1.3 H Glucose 126 H POC Glucose 127 H 144 H Lactic Acid Calcium Phosphorus Magnesium Direct Bilirubin AST ALT Alkaline Phosphatase Lactate Dehydrogenase Troponin T C-Reactive Protein Total Protein Albumin Prealbumin Triglycerides Cholesterol LDL Cholesterol Direct HDL Cholesterol Urine pH Urine WBC (Auto) Urine Creatinine Urine Total Protein Fluid Total Protein Vancomycin Trough Rheumatoid Factor Complement C4 Miscellaneous Test Crossmatch 12/13/16 12/13/16 12/13/16 04:00 04:00 05:19 WBC 18.7 H RBC 2.89 L Hgb 8.3 L Hct 24.6 L MCV MCH MCHC RDW 17.5 H Plt Count Lymph % (Auto) [place] % (Auto) Lymph # [place] # 1.3 H Baso # Seg Neutrophils % 71.5 H Seg Neuts % (Manual) Lymphocytes % (Manual) Monocytes % (Manual) Eosinophils % (Manual) Basophils % (Manual) Nucleated RBC % Seg Neutrophils # 13.4 H Seg Neutrophils # Man Lymphocytes # (Manual) Monocytes # (Manual) Eosinophils # (Manual) PT INR Fibrinogen dRVVT Confirm Interp Factor V Activity POC ABG pH POC ABG pCO2 POC ABG pO2 ABG pO2 ABG HCO3 ABG Base Excess ABG Hemoglobin Oxyhemoglobin Sodium Potassium Chloride Carbon Dioxide BUN 73 H Creatinine 1.5 H Glucose 141 H POC Glucose 171 H Lactic Acid Calcium Phosphorus Magnesium Direct Bilirubin AST ALT Alkaline Phosphatase Lactate Dehydrogenase Troponin T C-Reactive Protein Total Protein Albumin Prealbumin Triglycerides Cholesterol LDL Cholesterol Direct HDL Cholesterol Urine pH Urine WBC (Auto) Urine Creatinine Urine Total Protein Fluid Total Protein Vancomycin Trough Rheumatoid Factor Complement C4 Miscellaneous Test Crossmatch 12/13/16 12/13/16 12/14/16 12:28 16:48 00:01 WBC RBC Hgb Hct MCV MCH MCHC RDW Plt Count Lymph % (Auto) [place] % (Auto) Lymph # [place] # Baso # Seg Neutrophils % Seg Neuts % (Manual) Lymphocytes % (Manual) Monocytes % (Manual) Eosinophils % (Manual) Basophils % (Manual) Nucleated RBC % Seg Neutrophils # Seg Neutrophils # Man Lymphocytes # (Manual) Monocytes # (Manual) Eosinophils # (Manual) PT INR Fibrinogen dRVVT Confirm Interp Factor V Activity POC ABG pH POC ABG pCO2 POC ABG pO2 ABG pO2 ABG HCO3 ABG Base Excess ABG Hemoglobin Oxyhemoglobin Sodium Potassium Chloride Carbon Dioxide BUN Creatinine Glucose POC Glucose 206 H 173 H 139 H Lactic Acid Calcium Phosphorus Magnesium Direct Bilirubin AST ALT Alkaline Phosphatase Lactate Dehydrogenase Troponin T C-Reactive Protein Total Protein Albumin Prealbumin Triglycerides Cholesterol LDL Cholesterol Direct HDL Cholesterol Urine pH Urine WBC (Auto) Urine Creatinine Urine Total Protein Fluid Total Protein Vancomycin Trough Rheumatoid Factor Complement C4 Miscellaneous Test Crossmatch 12/14/16 12/14/16 12/14/16 05:16 06:10 11:17 WBC RBC Hgb Hct MCV MCH MCHC RDW Plt Count Lymph % (Auto) [place] % (Auto) Lymph # [place] # Baso # Seg Neutrophils % Seg Neuts % (Manual) Lymphocytes % (Manual) Monocytes % (Manual) Eosinophils % (Manual) Basophils % (Manual) Nucleated RBC % Seg Neutrophils # Seg Neutrophils # Man Lymphocytes # (Manual) Monocytes # (Manual) Eosinophils # (Manual) PT INR Fibrinogen dRVVT Confirm Interp Factor V Activity POC ABG pH POC ABG pCO2 POC ABG pO2 ABG pO2 ABG HCO3 ABG Base Excess ABG Hemoglobin Oxyhemoglobin Sodium Potassium Chloride Carbon Dioxide BUN 57 H Creatinine 1.4 H Glucose 135 H POC Glucose 158 H 137 H Lactic Acid Calcium Phosphorus Magnesium Direct Bilirubin AST ALT Alkaline Phosphatase Lactate Dehydrogenase Troponin T C-Reactive Protein Total Protein Albumin Prealbumin Triglycerides Cholesterol LDL Cholesterol Direct HDL Cholesterol Urine pH Urine WBC (Auto) Urine Creatinine Urine Total Protein Fluid Total Protein Vancomycin Trough Rheumatoid Factor Complement C4 Miscellaneous Test Crossmatch 12/14/16 17:52 WBC RBC Hgb Hct MCV MCH MCHC RDW Plt Count Lymph % (Auto) [place] % (Auto) Lymph # [place] # Baso # Seg Neutrophils % Seg Neuts % (Manual) Lymphocytes % (Manual) Monocytes % (Manual) Eosinophils % (Manual) Basophils % (Manual) Nucleated RBC % Seg Neutrophils # Seg Neutrophils # Man Lymphocytes # (Manual) Monocytes # (Manual) Eosinophils # (Manual) PT INR Fibrinogen dRVVT Confirm Interp Factor V Activity POC ABG pH POC ABG pCO2 POC ABG pO2 ABG pO2 ABG HCO3 ABG Base Excess ABG Hemoglobin Oxyhemoglobin Sodium Potassium Chloride Carbon Dioxide BUN Creatinine Glucose POC Glucose 149 H Lactic Acid Calcium Phosphorus Magnesium Direct Bilirubin AST ALT Alkaline Phosphatase Lactate Dehydrogenase Troponin T C-Reactive Protein Total Protein Albumin Prealbumin Triglycerides Cholesterol LDL Cholesterol Direct HDL Cholesterol Urine pH Urine WBC (Auto) Urine Creatinine Urine Total Protein Fluid Total Protein Vancomycin Trough Rheumatoid Factor Complement C4 Miscellaneous Test Crossmatch Allied health notes reviewed: RT
[2016-12-15] MEDS: DUONEB *Not for PRN Use IH SCH ×4 (01:58→20:47)
[2016-12-15] MEDS: LOPRESSOR PO SCH ×4 (02:20→20:12)
[2016-12-15] MEDS: HumuLIN R SUB-Q SCH ×3 (06:21→18:00)
[2016-12-15] MEDS: APRESOLINE PO SCH ×2 (06:23→15:00)
--- NOTE | 2016-12-15 08:00 | Progress Note ---
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 appearance: Patient lying in bed, no apparent distress, 4. restraints HEENT: Normocephalic, atraumatic, pupils equally round and reactive to light, extraocular movement intact, and no sclericterus,. No JVD or thyromegaly or nodule,neck supple, no carotid bruit ,mucous membranes moist, unable to examine oral cavity Heart: S1, S2, regular rate and rhythm Lungs: Clear to auscultation bilaterally, breathing comfortable Abdomen: Positive bowel sounds, nontender, nondistended, no organomegaly Extremity: No edema, cyanosis, clubbing Skin: No rash, nodules, warm, dry Neuro: Difficult to assess, facial droop, moves all 4 extremities - Vital Signs Vital signs: Vital Signs - 12hr 12/14/16 12/14/16 12/14/16 20:08 20:30 21:00 Temperature Pulse Rate 108 H 109 H Pulse Rate [ 114 H Anterior Bilateral Throughout] Pulse Rate [ From Monitor] Respiratory 21 22 Rate Respiratory 21 Rate [Anterior Bilateral Throughout] Respiratory Rate [ Generalized] Blood Pressure 108/59 111/59 O2 Sat by Pulse 98 98 Oximetry O2 Sat by Pulse Oximetry [ Assessment] 12/14/16 12/14/16 12/14/16 21:07 21:24 21:30 Temperature Pulse Rate 108 H 107 H Pulse Rate [ Anterior Bilateral Throughout] Pulse Rate [ From Monitor] Respiratory 21 20 Rate Respiratory Rate [Anterior Bilateral Throughout] Respiratory 22 Rate [ Generalized] Blood Pressure 111/59 107/62 O2 Sat by Pulse 98 99 Oximetry O2 Sat by Pulse Oximetry [ Assessment] 12/14/16 12/14/16 12/14/16 22:00 22:30 22:55 Temperature Pulse Rate 109 H 110 H 109 H Pulse Rate [ Anterior Bilateral Throughout] Pulse Rate [ From Monitor] Respiratory 21 23 Rate Respiratory Rate [Anterior Bilateral Throughout] Respiratory Rate [ Generalized] Blood Pressure 112/67 111/59 114/65 O2 Sat by Pulse 99 100 Oximetry O2 Sat by Pulse Oximetry [ Assessment] 12/14/16 12/14/16 12/14/16 23:00 23:04 23:14 Temperature Pulse Rate 112 H 111 H 114 H Pulse Rate [ Anterior Bilateral Throughout] Pulse Rate [ From Monitor] Respiratory 22 Rate Respiratory Rate [Anterior Bilateral Throughout] Respiratory Rate [ Generalized] Blood Pressure 108/63 106/69 119/71 O2 Sat by Pulse 100 100 Oximetry O2 Sat by Pulse Oximetry [ Assessment] 12/14/16 12/14/16 12/15/16 23:23 23:30 00:00 Temperature 97.9 F Pulse Rate 113 H 116 H Pulse Rate [ Anterior Bilateral Throughout] Pulse Rate [ 116 H From Monitor] Respiratory 25 H 27 H Rate Respiratory Rate [Anterior Bilateral Throughout] Respiratory Rate [ Generalized] Blood Pressure 109/65 122/74 O2 Sat by Pulse 100 100 Oximetry O2 Sat by Pulse 100 Oximetry [ Assessment] 12/15/16 12/15/16 12/15/16 00:30 01:00 01:30 Temperature Pulse Rate 111 H 118 H 119 H Pulse Rate [ Anterior Bilateral Throughout] Pulse Rate [ From Monitor] Respiratory 25 H 24 24 Rate Respiratory Rate [Anterior Bilateral Throughout] Respiratory Rate [ Generalized] Blood Pressure 99/53 124/73 114/72 O2 Sat by Pulse 100 100 100 Oximetry O2 Sat by Pulse Oximetry [ Assessment] 12/15/16 12/15/16 12/15/16 01:58 02:00 02:16 Temperature Pulse Rate 127 H Pulse Rate [ 122 H 124 H Anterior Bilateral Throughout] Pulse Rate [ From Monitor] Respiratory 21 Rate Respiratory 24 24 Rate [Anterior Bilateral Throughout] Respiratory Rate [ Generalized] Blood Pressure 130/76 O2 Sat by Pulse 99 Oximetry O2 Sat by Pulse Oximetry [ Assessment] 12/15/16 12/15/16 12/15/16 02:20 02:30 03:01 Temperature Pulse Rate 123 H 105 H Pulse Rate [ Anterior Bilateral Throughout] Pulse Rate [ From Monitor] Respiratory 26 H Rate Respiratory Rate [Anterior Bilateral Throughout] Respiratory Rate [ Generalized] Blood Pressure 114/71 131/87 131/87 O2 Sat by Pulse 99 98 Oximetry O2 Sat by Pulse Oximetry [ Assessment] 12/15/16 12/15/16 12/15/16 03:30 03:40 04:00 Temperature 97.8 F Pulse Rate 105 H 107 H 109 H Pulse Rate [ Anterior Bilateral Throughout] Pulse Rate [ 109 H From Monitor] Respiratory 27 H 30 H Rate Respiratory Rate [Anterior Bilateral Throughout] Respiratory Rate [ Generalized] Blood Pressure 118/70 118/70 121/74 O2 Sat by Pulse 94 95 95 Oximetry O2 Sat by Pulse Oximetry [ Assessment] 12/15/16 12/15/16 12/15/16 04:30 05:00 05:30 Temperature Pulse Rate 108 H 102 H 110 H Pulse Rate [ Anterior Bilateral Throughout] Pulse Rate [ From Monitor] Respiratory 25 H 26 H 28 H Rate Respiratory Rate [Anterior Bilateral Throughout] Respiratory Rate [ Generalized] Blood Pressure 122/74 103/63 125/74 O2 Sat by Pulse 96 96 96 Oximetry O2 Sat by Pulse Oximetry [ Assessment] 12/15/16 12/15/16 12/15/16 06:00 06:23 07:55 Temperature 98.6 F Pulse Rate 108 H 105 H Pulse Rate [ Anterior Bilateral Throughout] Pulse Rate [ From Monitor] Respiratory 23 Rate Respiratory Rate [Anterior Bilateral Throughout] Respiratory Rate [ Generalized] Blood Pressure 115/65 110/68 O2 Sat by Pulse 97 Oximetry O2 Sat by Pulse Oximetry [ Assessment] - Lab 12/13/16 04:00 12/15/16 04:00 Most recent lab results ABG pH 7.450 pH Units (7.350-7.450) 12/05/16 Unknown ABG pCO2 29.6 mm Hg 12/05/16 Unknown ABG pO2 75.2 mm Hg (80.0-90.0) L 12/05/16 Unknown ABG HCO3 20.1 mmol/L (20.0-26.0) 12/05/16 Unknown ABG O2 Saturation 96.8 % (95.0-99.0) 12/05/16 Unknown Calcium 9.0 mg/dL (8.4-10.2) 12/15/16 04:00 Phosphorus 5.20 mg/dL (2.5-4.5) H 12/15/16 04:00 Magnesium 1.90 mg/dL (1.7-2.3) 12/12/16 Unknown Urine Creatinine 19.7 mg/dL (0.1-20.0) 11/12/16 10:18 Urine Sodium 36 mEq/L 09/16/16 19:19 Urine Total Protein 16 mg/dL (5-11.8) H 09/16/16 19:19
[2016-12-15] MEDS: ROBINUL PO SCH (09:47)
[2016-12-15] MEDS: PROTONIX FEEDTUBE SCH (09:47)
[2016-12-15] MEDS: HEPARIN SUB-Q SCH (09:47)
[2016-12-15] MEDS: NORVASC PO SCH (09:49)
[2016-12-15] MEDS ORDERED: DULCOLAX PR ONE (11:00)
--- NOTE | 2016-12-15 12:34 | Progress Note ---
Assessment and Plan - Patient Problems (1) Acute respiratory failure with hypoxia Current Visit: Yes Status: Acute (2) Acute blood loss anemia Current Visit: Yes Status: Resolved (3) Acute CVA (cerebrovascular accident) Current Visit: Yes Status: Acute (4) Chronic renal insufficiency Current Visit: Yes Status: Acute Qualifiers: Chronic kidney disease stage: C (5) Uncontrolled hypertension Current Visit: Yes Status: Acute (6) Leukocytosis (leucocytosis) Current Visit: Yes Status: Acute Qualifiers: Leukocytosis type: leukemoid reaction Qualified Code(s): D72.823 - Leukemoid reaction (7) Dislodged gastrostomy tube Current Visit: Yes Status: Acute (8) Fungemia Current Visit: Yes Status: Resolved Subjective Date of service: 12/15/16 Principal diagnosis: Acute resp failure on MVS; S/P Acute CVA; Acute Encephalopathy; JUANITA Interval history: Seen and examined. Vitals, labs, medications, chart reviewed. On mechanical ventilatory support No further episodes of vomiting, no bowel movements Tolerating CPAP 12/5, tidal volumes of 300. Not tolerating T-piece trials Discussed in interdisciplinary rounds Objective Vital Signs - 12hr 12/15/16 12/15/16 12/15/16 01:00 01:30 01:58 Temperature Pulse Rate 118 H 119 H Pulse Rate [ 122 H Anterior Bilateral Throughout] Pulse Rate [ From Monitor] Respiratory 24 24 Rate Respiratory 24 Rate [Anterior Bilateral Throughout] Blood Pressure 124/73 114/72 O2 Sat by Pulse 100 100 Oximetry 12/15/16 12/15/16 12/15/16 02:00 02:16 02:20 Temperature Pulse Rate 127 H 123 H Pulse Rate [ 124 H Anterior Bilateral Throughout] Pulse Rate [ From Monitor] Respiratory 21 Rate Respiratory 24 Rate [Anterior Bilateral Throughout] Blood Pressure 130/76 114/71 O2 Sat by Pulse 99 Oximetry 12/15/16 12/15/16 12/15/16 02:30 03:01 03:30 Temperature Pulse Rate 105 H 105 H Pulse Rate [ Anterior Bilateral Throughout] Pulse Rate [ From Monitor] Respiratory 26 H 27 H Rate Respiratory Rate [Anterior Bilateral Throughout] Blood Pressure 131/87 131/87 118/70 O2 Sat by Pulse 99 98 94 Oximetry 12/15/16 12/15/16 12/15/16 03:40 04:00 04:30 Temperature 97.8 F Pulse Rate 107 H 109 H 108 H Pulse Rate [ Anterior Bilateral Throughout] Pulse Rate [ 109 H From Monitor] Respiratory 30 H 25 H Rate Respiratory Rate [Anterior Bilateral Throughout] Blood Pressure 118/70 121/74 122/74 O2 Sat by Pulse 95 95 96 Oximetry 12/15/16 12/15/16 12/15/16 05:00 05:30 06:00 Temperature Pulse Rate 102 H 110 H 108 H Pulse Rate [ Anterior Bilateral Throughout] Pulse Rate [ From Monitor] Respiratory 26 H 28 H 23 Rate Respiratory Rate [Anterior Bilateral Throughout] Blood Pressure 103/63 125/74 115/65 O2 Sat by Pulse 96 96 97 Oximetry 12/15/16 12/15/16 12/15/16 06:23 06:30 07:00 Temperature Pulse Rate 105 H 108 H 109 H Pulse Rate [ Anterior Bilateral Throughout] Pulse Rate [ From Monitor] Respiratory 29 H 27 H Rate Respiratory Rate [Anterior Bilateral Throughout] Blood Pressure 110/68 115/69 118/71 O2 Sat by Pulse 97 97 Oximetry 12/15/16 12/15/16 12/15/16 07:30 07:55 08:00 Temperature 98.6 F Pulse Rate 110 H 115 H Pulse Rate [ Anterior Bilateral Throughout] Pulse Rate [ 115 H From Monitor] Respiratory 28 H 26 H Rate Respiratory Rate [Anterior Bilateral Throughout] Blood Pressure 113/65 123/71 O2 Sat by Pulse 97 97 Oximetry 12/15/16 12/15/16 12/15/16 08:30 08:40 09:00 Temperature Pulse Rate 116 H 117 H 117 H Pulse Rate [ 115 H Anterior Bilateral Throughout] Pulse Rate [ From Monitor] Respiratory 27 H 26 H Rate Respiratory 19 Rate [Anterior Bilateral Throughout] Blood Pressure 114/70 115/68 112/66 O2 Sat by Pulse 95 96 95 Oximetry 12/15/16 12/15/16 12/15/16 09:30 10:00 10:30 Temperature Pulse Rate 118 H 123 H 120 H Pulse Rate [ Anterior Bilateral Throughout] Pulse Rate [ From Monitor] Respiratory 20 18 30 H Rate Respiratory Rate [Anterior Bilateral Throughout] Blood Pressure 120/70 117/63 107/62 O2 Sat by Pulse 95 93 94 Oximetry 12/15/16 12/15/16 12/15/16 11:00 11:20 11:30 Temperature Pulse Rate 122 H 118 H 120 H Pulse Rate [ Anterior Bilateral Throughout] Pulse Rate [ From Monitor] Respiratory 31 H 42 H 32 H Rate Respiratory Rate [Anterior Bilateral Throughout] Blood Pressure 120/70 113/65 120/74 O2 Sat by Pulse 95 97 97 Oximetry 12/15/16 12/15/16 12:00 12:30 Temperature 98.4 F Pulse Rate 119 H 120 H Pulse Rate [ Anterior Bilateral Throughout] Pulse Rate [ From Monitor] Respiratory 23 17 Rate Respiratory Rate [Anterior Bilateral Throughout] Blood Pressure 114/67 116/65 O2 Sat by Pulse 97 96 Oximetry Constitutional: appears uncomfortable, other (not tracking) Eyes: non-icteric, other (tracheostomy tube in midline of neck) ENT: oropharynx moist, oropharyngeal exudate pre Neck: supple, no lymphadenopathy, no JVD, other (no thyromegaly) Effort: normal, mildly labored Ascultation: Left: diminished breath sounds (base), Bilateral: clear, rales, rhonchi (and referred upper airway sounds) Percussion: Left: dull (base), Bilateral: not dull Cardiovascular: regular rate and rhythm, other (no rubs / murmurs) Gastrointestinal: hypoactive bowel sounds, soft, non-tender, non-distended, other (RLQ & LUQ stomas with colostomy bags) Integumentary: other (no rash; no cellulitis; poor turgor) Extremities: no cyanosis, pulses normal, no ischemia or petechiae, edema (1+ bilaterally) Neurologic: pupils equal and round, unable to assess, other (encephalopathic) Psychiatric: other (unable to assess) CBC and BMP: 12/19/16 05:02 12/20/16 07:07 ABG, PT/INR, D-dimer: ABG POC ABG pH 7.487 (7.35-7.45) H 11/25/16 14:12 ABG pH 7.450 pH Units (7.350-7.450) 12/05/16 Unknown POC ABG pCO2 39.0 (35-45) 11/25/16 14:12 ABG pCO2 29.6 mm Hg 12/05/16 Unknown POC ABG pO2 153 (80-105) H 11/25/16 14:12 ABG pO2 75.2 mm Hg (80.0-90.0) L 12/05/16 Unknown POC ABG HCO3 29.5 11/25/16 14:12 POC ABG Total CO2 31 11/25/16 14:12 POC ABG O2 Sat 99 11/25/16 14:12 ABG O2 Saturation 96.8 % (95.0-99.0) 12/05/16 Unknown PT/INR, D-dimer PT 16.8 Sec. (12.2-14.9) H 11/17/16 03:20 INR 1.37 (0.87-1.13) H 11/17/16 03:20 Abnormal lab findings: Abnormal Labs 09/03/16 09/03/16 09/03/16 12:12 15:07 16:20 WBC RBC Hgb Hct MCV MCH MCHC RDW Plt Count Lymph % (Auto) [place] % (Auto) Lymph # [place] # Baso # Seg Neutrophils % Seg Neuts % (Manual) Lymphocytes % (Manual) Monocytes % (Manual) Eosinophils % (Manual) Basophils % (Manual) Nucleated RBC % Seg Neutrophils # Seg Neutrophils # Man Lymphocytes # (Manual) Monocytes # (Manual) Eosinophils # (Manual) PT INR Fibrinogen dRVVT Confirm Interp Factor V Activity POC ABG pH 7.452 H POC ABG pCO2 POC ABG pO2 ABG pO2 ABG HCO3 ABG Base Excess ABG Hemoglobin Oxyhemoglobin Sodium Potassium Chloride Carbon Dioxide BUN Creatinine Glucose POC Glucose 178 H Lactic Acid Calcium Phosphorus 2.20 L Magnesium 1.60 L Direct Bilirubin AST ALT Alkaline Phosphatase Lactate Dehydrogenase Troponin T C-Reactive Protein Total Protein Albumin Prealbumin Triglycerides Cholesterol LDL Cholesterol Direct HDL Cholesterol Urine pH Urine WBC (Auto) Urine Creatinine Urine Total Protein Fluid Total Protein Vancomycin Trough Rheumatoid Factor Complement C4 Miscellaneous Test Crossmatch 09/03/16 09/03/16 09/03/16 17:57 17:58 23:50 WBC RBC Hgb Hct MCV MCH MCHC RDW Plt Count Lymph % (Auto) [place] % (Auto) Lymph # [place] # Baso # Seg Neutrophils % Seg Neuts % (Manual) Lymphocytes % (Manual) Monocytes % (Manual) Eosinophils % (Manual) Basophils % (Manual) Nucleated RBC % Seg Neutrophils # Seg Neutrophils # Man Lymphocytes # (Manual) Monocytes # (Manual) Eosinophils # (Manual) PT INR Fibrinogen dRVVT Confirm Interp Factor V Activity POC ABG pH POC ABG pCO2 POC ABG pO2 ABG pO2 ABG HCO3 ABG Base Excess ABG Hemoglobin Oxyhemoglobin Sodium Potassium Chloride Carbon Dioxide BUN Creatinine Glucose POC Glucose 162 H 145 H Lactic Acid Calcium Phosphorus 2.30 L Magnesium Direct Bilirubin AST ALT Alkaline Phosphatase Lactate Dehydrogenase Troponin T C-Reactive Protein Total Protein Albumin Prealbumin Triglycerides Cholesterol LDL Cholesterol Direct HDL Cholesterol Urine pH Urine WBC (Auto) Urine Creatinine Urine Total Protein Fluid Total Protein Vancomycin Trough Rheumatoid Factor Complement C4 Miscellaneous Test Crossmatch 09/04/16 09/04/16 09/04/16 03:31 03:31 05:42 WBC RBC Hgb 9.7 L D Hct MCV 72 L MCH 23 L MCHC RDW 17.5 H Plt Count Lymph % (Auto) 11.1 L [place] % (Auto) Lymph # [place] # Baso # Seg Neutrophils % 84.3 H Seg Neuts % (Manual) Lymphocytes % (Manual) Monocytes % (Manual) Eosinophils % (Manual) Basophils % (Manual) Nucleated RBC % Seg Neutrophils # 8.9 H Seg Neutrophils # Man Lymphocytes # (Manual) Monocytes # (Manual) Eosinophils # (Manual) PT INR Fibrinogen dRVVT Confirm Interp Factor V Activity POC ABG pH POC ABG pCO2 POC ABG pO2 ABG pO2 ABG HCO3 ABG Base Excess ABG Hemoglobin Oxyhemoglobin Sodium 135 L Potassium 2.9 L* Chloride 97.2 L Carbon Dioxide 19 L BUN Creatinine 1.7 H Glucose 170 H POC Glucose 152 H Lactic Acid Calcium Phosphorus Magnesium Direct Bilirubin AST ALT Alkaline Phosphatase Lactate Dehydrogenase Troponin T C-Reactive Protein Total Protein Albumin Prealbumin Triglycerides 160 H Cholesterol LDL Cholesterol Direct HDL Cholesterol 31 L Urine pH Urine WBC (Auto) Urine Creatinine Urine Total Protein Fluid Total Protein Vancomycin Trough Rheumatoid Factor Complement C4 Miscellaneous Test Crossmatch 09/04/16 09/04/16 09/04/16 11:34 17:46 23:29 WBC RBC Hgb Hct MCV MCH MCHC RDW Plt Count Lymph % (Auto) [place] % (Auto) Lymph # [place] # Baso # Seg Neutrophils % Seg Neuts % (Manual) Lymphocytes % (Manual) Monocytes % (Manual) Eosinophils % (Manual) Basophils % (Manual) Nucleated RBC % Seg Neutrophils # Seg Neutrophils # Man Lymphocytes # (Manual) Monocytes # (Manual) Eosinophils # (Manual) PT INR Fibrinogen dRVVT Confirm Interp Factor V Activity POC ABG pH POC ABG pCO2 POC ABG pO2 ABG pO2 ABG HCO3 ABG Base Excess ABG Hemoglobin Oxyhemoglobin Sodium Potassium Chloride Carbon Dioxide BUN Creatinine Glucose POC Glucose 165 H 210 H 139 H Lactic Acid Calcium Phosphorus Magnesium Direct Bilirubin AST ALT Alkaline Phosphatase Lactate Dehydrogenase Troponin T C-Reactive Protein Total Protein Albumin Prealbumin Triglycerides Cholesterol LDL Cholesterol Direct HDL Cholesterol Urine pH Urine WBC (Auto) Urine Creatinine Urine Total Protein Fluid Total Protein Vancomycin Trough Rheumatoid Factor Complement C4 Miscellaneous Test Crossmatch 09/05/16 09/05/16 09/05/16 04:05 04:05 05:38 WBC RBC Hgb Hct MCV 76 L D MCH 23 L MCHC RDW 17.8 H Plt Count Lymph % (Auto) [place] % (Auto) Lymph # [place] # Baso # Seg Neutrophils % Seg Neuts % (Manual) Lymphocytes % (Manual) Monocytes % (Manual) Eosinophils % (Manual) Basophils % (Manual) Nucleated RBC % Seg Neutrophils # Seg Neutrophils # Man Lymphocytes # (Manual) Monocytes # (Manual) Eosinophils # (Manual) PT INR Fibrinogen dRVVT Confirm Interp Factor V Activity POC ABG pH POC ABG pCO2 POC ABG pO2 ABG pO2 ABG HCO3 ABG Base Excess ABG Hemoglobin Oxyhemoglobin Sodium 134 L Potassium Chloride Carbon Dioxide 18 L BUN Creatinine 1.8 H Glucose 192 H POC Glucose 175 H Lactic Acid Calcium Phosphorus Magnesium Direct Bilirubin AST ALT Alkaline Phosphatase Lactate Dehydrogenase Troponin T C-Reactive Protein Total Protein Albumin Prealbumin Triglycerides Cholesterol LDL Cholesterol Direct HDL Cholesterol Urine pH Urine WBC (Auto) Urine Creatinine Urine Total Protein Fluid Total Protein Vancomycin Trough Rheumatoid Factor Complement C4 Miscellaneous Test Crossmatch 09/05/16 09/05/16 09/05/16 11:38 17:48 23:22 WBC RBC Hgb Hct MCV MCH MCHC RDW Plt Count Lymph % (Auto) [place] % (Auto) Lymph # [place] # Baso # Seg Neutrophils % Seg Neuts % (Manual) Lymphocytes % (Manual) Monocytes % (Manual) Eosinophils % (Manual) Basophils % (Manual) Nucleated RBC % Seg Neutrophils # Seg Neutrophils # Man Lymphocytes # (Manual) Monocytes # (Manual) Eosinophils # (Manual) PT INR Fibrinogen dRVVT Confirm Interp Factor V Activity POC ABG pH POC ABG pCO2 POC ABG pO2 ABG pO2 ABG HCO3 ABG Base Excess ABG Hemoglobin Oxyhemoglobin Sodium Potassium Chloride Carbon Dioxide BUN Creatinine Glucose POC Glucose 164 H 186 H 195 H Lactic Acid Calcium Phosphorus Magnesium Direct Bilirubin AST ALT Alkaline Phosphatase Lactate Dehydrogenase Troponin T C-Reactive Protein Total Protein Albumin Prealbumin Triglycerides Cholesterol LDL Cholesterol Direct HDL Cholesterol Urine pH Urine WBC (Auto) Urine Creatinine Urine Total Protein Fluid Total Protein Vancomycin Trough Rheumatoid Factor Complement C4 Miscellaneous Test Crossmatch 09/06/16 09/06/16 09/06/16 04:12 05:59 07:32 WBC RBC Hgb Hct MCV MCH MCHC RDW Plt Count Lymph % (Auto) [place] % (Auto) Lymph # [place] # Baso # Seg Neutrophils % Seg Neuts % (Manual) Lymphocytes % (Manual) Monocytes % (Manual) Eosinophils % (Manual) Basophils % (Manual) Nucleated RBC % Seg Neutrophils # Seg Neutrophils # Man Lymphocytes # (Manual) Monocytes # (Manual) Eosinophils # (Manual) PT INR Fibrinogen dRVVT Confirm Interp Factor V Activity POC ABG pH 7.514 H POC ABG pCO2 29.1 L POC ABG pO2 72 L ABG pO2 ABG HCO3 ABG Base Excess ABG Hemoglobin Oxyhemoglobin Sodium 133 L Potassium 3.4 L Chloride 94.9 L Carbon Dioxide 19 L BUN 30 H Creatinine 2.1 H Glucose 139 H POC Glucose 146 H Lactic Acid Calcium Phosphorus Magnesium Direct Bilirubin AST ALT Alkaline Phosphatase Lactate Dehydrogenase Troponin T C-Reactive Protein Total Protein Albumin Prealbumin Triglycerides Cholesterol LDL Cholesterol Direct HDL Cholesterol Urine pH Urine WBC (Auto) Urine Creatinine Urine Total Protein Fluid Total Protein Vancomycin Trough Rheumatoid Factor Complement C4 Miscellaneous Test Crossmatch 09/06/16 09/06/16 09/06/16 11:57 17:58 19:02 WBC RBC Hgb Hct MCV MCH MCHC RDW Plt Count Lymph % (Auto) [place] % (Auto) Lymph # [place] # Baso # Seg Neutrophils % Seg Neuts % (Manual) Lymphocytes % (Manual) Monocytes % (Manual) Eosinophils % (Manual) Basophils % (Manual) Nucleated RBC % Seg Neutrophils # Seg Neutrophils # Man Lymphocytes # (Manual) Monocytes # (Manual) Eosinophils # (Manual) PT INR Fibrinogen dRVVT Confirm Interp Factor V Activity POC ABG pH 7.465 H POC ABG pCO2 32.0 L POC ABG pO2 ABG pO2 ABG HCO3 ABG Base Excess ABG Hemoglobin Oxyhemoglobin Sodium Potassium Chloride Carbon Dioxide BUN Creatinine Glucose POC Glucose 165 H 160 H Lactic Acid Calcium Phosphorus Magnesium Direct Bilirubin AST ALT Alkaline Phosphatase Lactate Dehydrogenase Troponin T C-Reactive Protein Total Protein Albumin Prealbumin Triglycerides Cholesterol LDL Cholesterol Direct HDL Cholesterol Urine pH Urine WBC (Auto) Urine Creatinine Urine Total Protein Fluid Total Protein Vancomycin Trough Rheumatoid Factor Complement C4 Miscellaneous Test Crossmatch 09/06/16 09/07/16 09/07/16 23:45 02:47 02:47 WBC RBC Hgb Hct MCV MCH MCHC RDW Plt Count Lymph % (Auto) [place] % (Auto) Lymph # [place] # Baso # Seg Neutrophils % Seg Neuts % (Manual) Lymphocytes % (Manual) Monocytes % (Manual) Eosinophils % (Manual) Basophils % (Manual) Nucleated RBC % Seg Neutrophils # Seg Neutrophils # Man Lymphocytes # (Manual) Monocytes # (Manual) Eosinophils # (Manual) PT INR Fibrinogen dRVVT Confirm Interp Factor V Activity POC ABG pH POC ABG pCO2 POC ABG pO2 ABG pO2 ABG HCO3 ABG Base Excess ABG Hemoglobin Oxyhemoglobin Sodium Potassium Chloride Carbon Dioxide BUN Creatinine Glucose POC Glucose 204 H Lactic Acid Calcium Phosphorus Magnesium Direct Bilirubin AST ALT Alkaline Phosphatase Lactate Dehydrogenase Troponin T C-Reactive Protein Total Protein Albumin Prealbumin Triglycerides Cholesterol LDL Cholesterol Direct HDL Cholesterol Urine pH Urine WBC (Auto) 68.0 H Urine Creatinine 106.1 H Urine Total Protein Fluid Total Protein Vancomycin Trough Rheumatoid Factor Complement C4 Miscellaneous Test Crossmatch 09/07/16 09/07/16 09/07/16 04:50 06:19 06:39 WBC RBC Hgb Hct MCV MCH MCHC RDW Plt Count Lymph % (Auto) [place] % (Auto) Lymph # [place] # Baso # Seg Neutrophils % Seg Neuts % (Manual) Lymphocytes % (Manual) Monocytes % (Manual) Eosinophils % (Manual) Basophils % (Manual) Nucleated RBC % Seg Neutrophils # Seg Neutrophils # Man Lymphocytes # (Manual) Monocytes # (Manual) Eosinophils # (Manual) PT INR Fibrinogen dRVVT Confirm Interp Factor V Activity POC ABG pH 7.457 H POC ABG pCO2 32.1 L POC ABG pO2 76 L ABG pO2 ABG HCO3 ABG Base Excess ABG Hemoglobin Oxyhemoglobin Sodium 132 L Potassium Chloride 94.7 L Carbon Dioxide BUN 53 H Creatinine 2.9 H Glucose 151 H POC Glucose 149 H Lactic Acid Calcium Phosphorus Magnesium Direct Bilirubin AST ALT Alkaline Phosphatase Lactate Dehydrogenase Troponin T C-Reactive Protein Total Protein Albumin Prealbumin Triglycerides Cholesterol LDL Cholesterol Direct HDL Cholesterol Urine pH Urine WBC (Auto) Urine Creatinine Urine Total Protein Fluid Total Protein Vancomycin Trough Rheumatoid Factor Complement C4 Miscellaneous Test Crossmatch 09/07/16 09/07/16 09/07/16 09:20 11:43 11:43 WBC 19.4 H RBC Hgb 8.3 L Hct 26.4 L D MCV 72 L D MCH 22 L MCHC RDW 17.9 H Plt Count Lymph % (Auto) 8.5 L [place] % (Auto) Lymph # [place] # 1.0 H Baso # Seg Neutrophils % 85.8 H Seg Neuts % (Manual) Lymphocytes % (Manual) Monocytes % (Manual) Eosinophils % (Manual) Basophils % (Manual) Nucleated RBC % Seg Neutrophils # 16.6 H Seg Neutrophils # Man Lymphocytes # (Manual) Monocytes # (Manual) Eosinophils # (Manual) PT INR Fibrinogen dRVVT Confirm Interp Factor V Activity POC ABG pH POC ABG pCO2 POC ABG pO2 ABG pO2 ABG HCO3 ABG Base Excess ABG Hemoglobin Oxyhemoglobin Sodium 134 L Potassium Chloride 97.2 L Carbon Dioxide 20 L BUN 58 H Creatinine 2.9 H Glucose 147 H POC Glucose Lactic Acid Calcium Phosphorus 2.40 L Magnesium 2.40 H Direct Bilirubin AST ALT Alkaline Phosphatase Lactate Dehydrogenase Troponin T C-Reactive Protein Total Protein 5.8 L Albumin 2.2 L Prealbumin Triglycerides Cholesterol LDL Cholesterol Direct HDL Cholesterol Urine pH Urine WBC (Auto) Urine Creatinine Urine Total Protein Fluid Total Protein Vancomycin Trough Rheumatoid Factor Complement C4 58 H Miscellaneous Test Crossmatch 09/07/16 09/07/16 09/07/16 11:50 16:00 17:31 WBC RBC Hgb Hct MCV MCH MCHC RDW Plt Count Lymph % (Auto) [place] % (Auto) Lymph # [place] # Baso # Seg Neutrophils % Seg Neuts % (Manual) Lymphocytes % (Manual) Monocytes % (Manual) Eosinophils % (Manual) Basophils % (Manual) Nucleated RBC % Seg Neutrophils # Seg Neutrophils # Man Lymphocytes # (Manual) Monocytes # (Manual) Eosinophils # (Manual) PT INR Fibrinogen dRVVT Confirm Interp Factor V Activity POC ABG pH POC ABG pCO2 POC ABG pO2 158 H ABG pO2 ABG HCO3 ABG Base Excess ABG Hemoglobin Oxyhemoglobin Sodium Potassium Chloride Carbon Dioxide BUN Creatinine Glucose POC Glucose 175 H Lactic Acid Calcium Phosphorus Magnesium Direct Bilirubin AST ALT Alkaline Phosphatase Lactate Dehydrogenase Troponin T C-Reactive Protein Total Protein Albumin Prealbumin Triglycerides Cholesterol LDL Cholesterol Direct HDL Cholesterol Urine pH Urine WBC (Auto) Urine Creatinine 66.3 H Urine Total Protein Fluid Total Protein Vancomycin Trough Rheumatoid Factor Complement C4 Miscellaneous Test Crossmatch 09/07/16 09/08/16 09/08/16 23:50 05:46 06:18 WBC 17.8 H RBC 3.58 L Hgb 8.1 L Hct 25.5 L MCV 71 L MCH 23 L MCHC RDW 18.4 H Plt Count Lymph % (Auto) [place] % (Auto) Lymph # [place] # Baso # Seg Neutrophils % Seg Neuts % (Manual) 92.0 H Lymphocytes % (Manual) 6.0 L Monocytes % (Manual) Eosinophils % (Manual) Basophils % (Manual) Nucleated RBC % Seg Neutrophils # Seg Neutrophils # Man 16.4 H Lymphocytes # (Manual) 1.1 L Monocytes # (Manual) Eosinophils # (Manual) PT INR Fibrinogen dRVVT Confirm Interp Factor V Activity POC ABG pH POC ABG pCO2 34.3 L POC ABG pO2 71 L ABG pO2 ABG HCO3 ABG Base Excess ABG Hemoglobin Oxyhemoglobin Sodium Potassium Chloride Carbon Dioxide BUN Creatinine Glucose POC Glucose 216 H Lactic Acid Calcium Phosphorus Magnesium Direct Bilirubin AST ALT Alkaline Phosphatase Lactate Dehydrogenase Troponin T C-Reactive Protein Total Protein Albumin Prealbumin Triglycerides Cholesterol LDL Cholesterol Direct HDL Cholesterol Urine pH Urine WBC (Auto) Urine Creatinine Urine Total Protein Fluid Total Protein Vancomycin Trough Rheumatoid Factor Complement C4 Miscellaneous Test Crossmatch 09/08/16 09/08/16 09/08/16 06:18 06:51 10:55 WBC RBC Hgb Hct MCV MCH MCHC RDW Plt Count Lymph % (Auto) [place] % (Auto) Lymph # [place] # Baso # Seg Neutrophils % Seg Neuts % (Manual) Lymphocytes % (Manual) Monocytes % (Manual) Eosinophils % (Manual) Basophils % (Manual) Nucleated RBC % Seg Neutrophils # Seg Neutrophils # Man Lymphocytes # (Manual) Monocytes # (Manual) Eosinophils # (Manual) PT INR Fibrinogen dRVVT Confirm Interp Factor V Activity POC ABG pH POC ABG pCO2 POC ABG pO2 ABG pO2 ABG HCO3 ABG Base Excess ABG Hemoglobin Oxyhemoglobin Sodium 133 L Potassium Chloride 96.9 L Carbon Dioxide 20 L BUN 63 H Creatinine 2.7 H Glucose 195 H POC Glucose 204 H 169 H Lactic Acid Calcium Phosphorus Magnesium Direct Bilirubin AST ALT Alkaline Phosphatase Lactate Dehydrogenase Troponin T C-Reactive Protein Total Protein Albumin Prealbumin Triglycerides Cholesterol LDL Cholesterol Direct HDL Cholesterol Urine pH Urine WBC (Auto) Urine Creatinine Urine Total Protein Fluid Total Protein Vancomycin Trough Rheumatoid Factor Complement C4 Miscellaneous Test Crossmatch 09/08/16 09/08/1617 11:48 11:48 11:48 WBC RBC Hgb Hct MCV MCH MCHC RDW Plt Count Lymph % (Auto) [place] % (Auto) Lymph # [place] # Baso # Seg Neutrophils % Seg Neuts % (Manual) Lymphocytes % (Manual) Monocytes % (Manual) Eosinophils % (Manual) Basophils % (Manual) Nucleated RBC % Seg Neutrophils # Seg Neutrophils # Man Lymphocytes # (Manual) Monocytes # (Manual) Eosinophils # (Manual) PT INR Fibrinogen 750 H dRVVT Confirm Interp Factor V Activity POC ABG pH POC ABG pCO2 POC ABG pO2 ABG pO2 ABG HCO3 ABG Base Excess ABG Hemoglobin Oxyhemoglobin Sodium Potassium Chloride Carbon Dioxide BUN Creatinine Glucose POC Glucose Lactic Acid Calcium Phosphorus Magnesium Direct Bilirubin AST ALT Alkaline Phosphatase Lactate Dehydrogenase Troponin T C-Reactive Protein 15.70 H Total Protein Albumin Prealbumin Triglycerides Cholesterol LDL Cholesterol Direct HDL Cholesterol Urine pH Urine WBC (Auto) Urine Creatinine Urine Total Protein Fluid Total Protein Vancomycin Trough Rheumatoid Factor 24 H Complement C4 Miscellaneous Test Crossmatch 09/08/16 09/08/16 09/09/16 15:35 18:25 00:24 WBC RBC Hgb Hct MCV MCH MCHC RDW Plt Count Lymph % (Auto) [place] % (Auto) Lymph # [place] # Baso # Seg Neutrophils % Seg Neuts % (Manual) Lymphocytes % (Manual) Monocytes % (Manual) Eosinophils % (Manual) Basophils % (Manual) Nucleated RBC % Seg Neutrophils # Seg Neutrophils # Man Lymphocytes # (Manual) Monocytes # (Manual) Eosinophils # (Manual) PT INR Fibrinogen dRVVT Confirm Interp Factor V Activity 182 H POC ABG pH POC ABG pCO2 POC ABG pO2 ABG pO2 ABG HCO3 ABG Base Excess ABG Hemoglobin Oxyhemoglobin Sodium Potassium Chloride Carbon Dioxide BUN Creatinine Glucose POC Glucose 184 H 216 H Lactic Acid Calcium Phosphorus Magnesium Direct Bilirubin AST ALT Alkaline Phosphatase Lactate Dehydrogenase Troponin T C-Reactive Protein Total Protein Albumin Prealbumin Triglycerides Cholesterol LDL Cholesterol Direct HDL Cholesterol Urine pH Urine WBC (Auto) Urine Creatinine Urine Total Protein Fluid Total Protein Vancomycin Trough Rheumatoid Factor Complement C4 Miscellaneous Test Crossmatch 09/09/16 09/09/16 09/09/16 03:00 03:00 04:04 WBC 27.9 H RBC Hgb 8.7 L Hct 28.1 L MCV 72 L MCH 22 L MCHC RDW 18.4 H Plt Count 485 H Lymph % (Auto) [place] % (Auto) Lymph # [place] # Baso # Seg Neutrophils % Seg Neuts % (Manual) 77.0 H Lymphocytes % (Manual) 9.0 L Monocytes % (Manual) Eosinophils % (Manual) Basophils % (Manual) Nucleated RBC % Seg Neutrophils # Seg Neutrophils # Man 21.5 H Lymphocytes # (Manual) Monocytes # (Manual) 2.0 H Eosinophils # (Manual) PT INR Fibrinogen dRVVT Confirm Interp Factor V Activity POC ABG pH POC ABG pCO2 POC ABG pO2 121 H ABG pO2 ABG HCO3 ABG Base Excess ABG Hemoglobin Oxyhemoglobin Sodium 135 L Potassium Chloride 96.3 L Carbon Dioxide 21 L BUN 83 H Creatinine 3.0 H Glucose 135 H POC Glucose Lactic Acid Calcium Phosphorus Magnesium Direct Bilirubin AST ALT Alkaline Phosphatase Lactate Dehydrogenase Troponin T C-Reactive Protein Total Protein Albumin Prealbumin Triglycerides Cholesterol LDL Cholesterol Direct HDL Cholesterol Urine pH Urine WBC (Auto) Urine Creatinine Urine Total Protein Fluid Total Protein Vancomycin Trough Rheumatoid Factor Complement C4 Miscellaneous Test Crossmatch 09/09/16 09/09/16 09/09/16 05:41 11:55 14:13 WBC RBC Hgb Hct MCV MCH MCHC RDW Plt Count Lymph % (Auto) [place] % (Auto) Lymph # [place] # Baso # Seg Neutrophils % Seg Neuts % (Manual) Lymphocytes % (Manual) Monocytes % (Manual) Eosinophils % (Manual) Basophils % (Manual) Nucleated RBC % Seg Neutrophils # Seg Neutrophils # Man Lymphocytes # (Manual) Monocytes # (Manual) Eosinophils # (Manual) PT INR Fibrinogen dRVVT Confirm Interp Factor V Activity POC ABG pH POC ABG pCO2 POC ABG pO2 ABG pO2 ABG HCO3 ABG Base Excess ABG Hemoglobin Oxyhemoglobin Sodium Potassium Chloride Carbon Dioxide BUN Creatinine Glucose POC Glucose 155 H 186 H Lactic Acid Calcium Phosphorus Magnesium Direct Bilirubin AST ALT Alkaline Phosphatase Lactate Dehydrogenase Troponin T C-Reactive Protein Total Protein Albumin Prealbumin Triglycerides Cholesterol LDL Cholesterol Direct HDL Cholesterol Urine pH Urine WBC (Auto) 25.0 H Urine Creatinine Urine Total Protein Fluid Total Protein Vancomycin Trough Rheumatoid Factor Complement C4 Miscellaneous Test Crossmatch 09/09/16 09/09/16 09/10/16 17:33 23:13 05:09 WBC RBC Hgb Hct MCV MCH MCHC RDW Plt Count Lymph % (Auto) [place] % (Auto) Lymph # [place] # Baso # Seg Neutrophils % Seg Neuts % (Manual) Lymphocytes % (Manual) Monocytes % (Manual) Eosinophils % (Manual) Basophils % (Manual) Nucleated RBC % Seg Neutrophils # Seg Neutrophils # Man Lymphocytes # (Manual) Monocytes # (Manual) Eosinophils # (Manual) PT INR Fibrinogen dRVVT Confirm Interp Factor V Activity POC ABG pH POC ABG pCO2 POC ABG pO2 74 L ABG pO2 ABG HCO3 ABG Base Excess ABG Hemoglobin Oxyhemoglobin Sodium Potassium Chloride Carbon Dioxide BUN Creatinine Glucose POC Glucose 211 H 215 H Lactic Acid Calcium Phosphorus Magnesium Direct Bilirubin AST ALT Alkaline Phosphatase Lactate Dehydrogenase Troponin T C-Reactive Protein Total Protein Albumin Prealbumin Triglycerides Cholesterol LDL Cholesterol Direct HDL Cholesterol Urine pH Urine WBC (Auto) Urine Creatinine Urine Total Protein Fluid Total Protein Vancomycin Trough Rheumatoid Factor Complement C4 Miscellaneous Test Crossmatch 09/10/16 09/10/16 09/10/16 05:17 05:17 11:31 WBC 15.8 H RBC 3.25 L Hgb 7.3 L Hct 22.9 L MCV 71 L MCH 23 L MCHC RDW 18.4 H Plt Count Lymph % (Auto) [place] % (Auto) Lymph # [place] # Baso # Seg Neutrophils % Seg Neuts % (Manual) 91.0 H Lymphocytes % (Manual) 4.0 L Monocytes % (Manual) Eosinophils % (Manual) Basophils % (Manual) Nucleated RBC % Seg Neutrophils # Seg Neutrophils # Man 14.4 H Lymphocytes # (Manual) 0.6 L Monocytes # (Manual) Eosinophils # (Manual) PT INR Fibrinogen dRVVT Confirm Interp Factor V Activity POC ABG pH POC ABG pCO2 POC ABG pO2 ABG pO2 ABG HCO3 ABG Base Excess ABG Hemoglobin Oxyhemoglobin Sodium Potassium Chloride Carbon Dioxide 21 L BUN 93 H Creatinine 2.9 H Glucose 146 H POC Glucose 188 H Lactic Acid Calcium 8.1 L Phosphorus Magnesium Direct Bilirubin AST ALT Alkaline Phosphatase Lactate Dehydrogenase Troponin T C-Reactive Protein Total Protein Albumin Prealbumin Triglycerides Cholesterol LDL Cholesterol Direct HDL Cholesterol Urine pH Urine WBC (Auto) Urine Creatinine Urine Total Protein Fluid Total Protein Vancomycin Trough Rheumatoid Factor Complement C4 Miscellaneous Test Crossmatch 09/10/16 09/10/16 09/10/16 13:17 17:20 23:32 WBC RBC Hgb Hct MCV MCH MCHC RDW Plt Count Lymph % (Auto) [place] % (Auto) Lymph # [place] # Baso # Seg Neutrophils % Seg Neuts % (Manual) Lymphocytes % (Manual) Monocytes % (Manual) Eosinophils % (Manual) Basophils % (Manual) Nucleated RBC % Seg Neutrophils # Seg Neutrophils # Man Lymphocytes # (Manual) Monocytes # (Manual) Eosinophils # (Manual) PT INR Fibrinogen dRVVT Confirm Interp Factor V Activity POC ABG pH POC ABG pCO2 POC ABG pO2 ABG pO2 ABG HCO3 ABG Base Excess ABG Hemoglobin Oxyhemoglobin Sodium Potassium Chloride Carbon Dioxide BUN Creatinine Glucose POC Glucose 199 H 186 H Lactic Acid Calcium Phosphorus Magnesium Direct Bilirubin AST ALT Alkaline Phosphatase Lactate Dehydrogenase Troponin T C-Reactive Protein Total Protein Albumin Prealbumin Triglycerides Cholesterol LDL Cholesterol Direct HDL Cholesterol Urine pH Urine WBC (Auto) Urine Creatinine Urine Total Protein Fluid Total Protein Vancomycin Trough Rheumatoid Factor Complement C4 Miscellaneous Test Crossmatch See Detail 09/11/16 09/11/16 09/11/16 05:10 05:10 05:17 WBC 28.4 H RBC Hgb 9.2 L Hct 29.3 L D MCV 73 L MCH 23 L MCHC RDW 18.9 H Plt Count 452 H Lymph % (Auto) [place] % (Auto) Lymph # [place] # Baso # Seg Neutrophils % Seg Neuts % (Manual) 89.5 H Lymphocytes % (Manual) 2.0 L Monocytes % (Manual) Eosinophils % (Manual) Basophils % (Manual) Nucleated RBC % Seg Neutrophils # Seg Neutrophils # Man 25.4 H Lymphocytes # (Manual) 0.6 L Monocytes # (Manual) 1.3 H Eosinophils # (Manual) PT INR Fibrinogen dRVVT Confirm Interp Factor V Activity POC ABG pH POC ABG pCO2 POC ABG pO2 ABG pO2 ABG HCO3 ABG Base Excess ABG Hemoglobin Oxyhemoglobin Sodium 136 L Potassium Chloride Carbon Dioxide 18 L BUN 107 H Creatinine 2.6 H Glucose 187 H POC Glucose 230 H Lactic Acid Calcium 8.3 L Phosphorus Magnesium Direct Bilirubin AST ALT Alkaline Phosphatase Lactate Dehydrogenase Troponin T C-Reactive Protein Total Protein Albumin Prealbumin Triglycerides Cholesterol LDL Cholesterol Direct HDL Cholesterol Urine pH Urine WBC (Auto) Urine Creatinine Urine Total Protein Fluid Total Protein Vancomycin Trough Rheumatoid Factor Complement C4 Miscellaneous Test Crossmatch 09/11/16 09/11/16 09/11/16 05:55 12:02 17:32 WBC RBC Hgb Hct MCV MCH MCHC RDW Plt Count Lymph % (Auto) [place] % (Auto) Lymph # [place] # Baso # Seg Neutrophils % Seg Neuts % (Manual) Lymphocytes % (Manual) Monocytes % (Manual) Eosinophils % (Manual) Basophils % (Manual) Nucleated RBC % Seg Neutrophils # Seg Neutrophils # Man Lymphocytes # (Manual) Monocytes # (Manual) Eosinophils # (Manual) PT INR Fibrinogen dRVVT Confirm Interp Factor V Activity POC ABG pH POC ABG pCO2 33.8 L POC ABG pO2 ABG pO2 ABG HCO3 ABG Base Excess ABG Hemoglobin Oxyhemoglobin Sodium Potassium Chloride Carbon Dioxide BUN Creatinine Glucose POC Glucose 191 H 239 H Lactic Acid Calcium Phosphorus Magnesium Direct Bilirubin AST ALT Alkaline Phosphatase Lactate Dehydrogenase Troponin T C-Reactive Protein Total Protein Albumin Prealbumin Triglycerides Cholesterol LDL Cholesterol Direct HDL Cholesterol Urine pH Urine WBC (Auto) Urine Creatinine Urine Total Protein Fluid Total Protein Vancomycin Trough Rheumatoid Factor Complement C4 Miscellaneous Test Crossmatch 09/11/16 09/12/16 09/12/16 23:52 05:09 05:32 WBC RBC Hgb Hct MCV MCH MCHC RDW Plt Count Lymph % (Auto) [place] % (Auto) Lymph # [place] # Baso # Seg Neutrophils % Seg Neuts % (Manual) Lymphocytes % (Manual) Monocytes % (Manual) Eosinophils % (Manual) Basophils % (Manual) Nucleated RBC % Seg Neutrophils # Seg Neutrophils # Man Lymphocytes # (Manual) Monocytes # (Manual) Eosinophils # (Manual) PT INR Fibrinogen dRVVT Confirm Interp Factor V Activity POC ABG pH POC ABG pCO2 34.6 L POC ABG pO2 ABG pO2 ABG HCO3 ABG Base Excess ABG Hemoglobin Oxyhemoglobin Sodium Potassium Chloride Carbon Dioxide BUN Creatinine Glucose POC Glucose 265 H 184 H Lactic Acid Calcium Phosphorus Magnesium Direct Bilirubin AST ALT Alkaline Phosphatase Lactate Dehydrogenase Troponin T C-Reactive Protein Total Protein Albumin Prealbumin Triglycerides Cholesterol LDL Cholesterol Direct HDL Cholesterol Urine pH Urine WBC (Auto) Urine Creatinine Urine Total Protein Fluid Total Protein Vancomycin Trough Rheumatoid Factor Complement C4 Miscellaneous Test Crossmatch 09/12/16 09/12/16 09/12/16 06:45 06:45 07:22 WBC 31.7 H RBC 3.54 L Hgb 8.3 L Hct 25.9 L MCV 73 L MCH 23 L MCHC RDW 18.9 H Plt Count Lymph % (Auto) [place] % (Auto) Lymph # [place] # Baso # Seg Neutrophils % Seg Neuts % (Manual) 88.5 H Lymphocytes % (Manual) 4.5 L Monocytes % (Manual) Eosinophils % (Manual) Basophils % (Manual) Nucleated RBC % Seg Neutrophils # Seg Neutrophils # Man 28.1 H Lymphocytes # (Manual) Monocytes # (Manual) 1.0 H Eosinophils # (Manual) PT INR Fibrinogen dRVVT Confirm Interp Factor V Activity POC ABG pH POC ABG pCO2 POC ABG pO2 ABG pO2 ABG HCO3 ABG Base Excess ABG Hemoglobin Oxyhemoglobin Sodium Potassium Chloride Carbon Dioxide 20 L BUN 115 H Creatinine 2.7 H Glucose 165 H POC Glucose Lactic Acid Calcium 8.0 L Phosphorus Magnesium Direct Bilirubin AST ALT Alkaline Phosphatase Lactate Dehydrogenase Troponin T C-Reactive Protein Total Protein Albumin Prealbumin Triglycerides 217 H Cholesterol LDL Cholesterol Direct HDL Cholesterol Urine pH Urine WBC (Auto) Urine Creatinine Urine Total Protein Fluid Total Protein Vancomycin Trough Rheumatoid Factor Complement C4 Miscellaneous Test Crossmatch 09/12/16 09/12/16 09/12/16 07:22 09:59 12:21 WBC RBC Hgb Hct MCV MCH MCHC RDW Plt Count Lymph % (Auto) [place] % (Auto) Lymph # [place] # Baso # Seg Neutrophils % Seg Neuts % (Manual) Lymphocytes % (Manual) Monocytes % (Manual) Eosinophils % (Manual) Basophils % (Manual) Nucleated RBC % Seg Neutrophils # Seg Neutrophils # Man Lymphocytes # (Manual) Monocytes # (Manual) Eosinophils # (Manual) PT INR Fibrinogen dRVVT Confirm Interp Positive H Factor V Activity POC ABG pH POC ABG pCO2 POC ABG pO2 ABG pO2 ABG HCO3 ABG Base Excess ABG Hemoglobin Oxyhemoglobin Sodium Potassium Chloride Carbon Dioxide BUN Creatinine Glucose POC Glucose 224 H Lactic Acid Calcium Phosphorus Magnesium Direct Bilirubin AST ALT Alkaline Phosphatase Lactate Dehydrogenase Troponin T C-Reactive Protein 1.70 H Total Protein Albumin Prealbumin Triglycerides Cholesterol LDL Cholesterol Direct HDL Cholesterol Urine pH Urine WBC (Auto) Urine Creatinine Urine Total Protein Fluid Total Protein Vancomycin Trough Rheumatoid Factor Complement C4 Miscellaneous Test Crossmatch 09/12/16 09/12/16 09/13/16 16:51 23:28 04:00 WBC 45.0 H* RBC Hgb 9.4 L Hct MCV 75 L MCH 23 L MCHC RDW 19.0 H Plt Count 470 H Lymph % (Auto) [place] % (Auto) Lymph # [place] # Baso # Seg Neutrophils % Seg Neuts % (Manual) 89.0 H Lymphocytes % (Manual) 5.0 L Monocytes % (Manual) Eosinophils % (Manual) Basophils % (Manual) Nucleated RBC % Seg Neutrophils # Seg Neutrophils # Man 40.1 H Lymphocytes # (Manual) Monocytes # (Manual) Eosinophils # (Manual) PT INR Fibrinogen dRVVT Confirm Interp Factor V Activity POC ABG pH POC ABG pCO2 POC ABG pO2 ABG pO2 ABG HCO3 ABG Base Excess ABG Hemoglobin Oxyhemoglobin Sodium Potassium Chloride Carbon Dioxide BUN Creatinine Glucose POC Glucose 169 H 150 H Lactic Acid Calcium Phosphorus Magnesium Direct Bilirubin AST ALT Alkaline Phosphatase Lactate Dehydrogenase Troponin T C-Reactive Protein Total Protein Albumin Prealbumin Triglycerides Cholesterol LDL Cholesterol Direct HDL Cholesterol Urine pH Urine WBC (Auto) Urine Creatinine Urine Total Protein Fluid Total Protein Vancomycin Trough Rheumatoid Factor Complement C4 Miscellaneous Test Crossmatch 09/13/16 09/13/16 09/13/16 04:00 11:26 17:31 WBC RBC Hgb Hct MCV MCH MCHC RDW Plt Count Lymph % (Auto) [place] % (Auto) Lymph # [place] # Baso # Seg Neutrophils % Seg Neuts % (Manual) Lymphocytes % (Manual) Monocytes % (Manual) Eosinophils % (Manual) Basophils % (Manual) Nucleated RBC % Seg Neutrophils # Seg Neutrophils # Man Lymphocytes # (Manual) Monocytes # (Manual) Eosinophils # (Manual) PT INR Fibrinogen dRVVT Confirm Interp Factor V Activity POC ABG pH POC ABG pCO2 POC ABG pO2 ABG pO2 ABG HCO3 ABG Base Excess ABG Hemoglobin Oxyhemoglobin Sodium Potassium Chloride Carbon Dioxide 20 L BUN 116 H Creatinine 3.0 H Glucose 172 H POC Glucose 140 H 183 H Lactic Acid Calcium Phosphorus Magnesium Direct Bilirubin AST ALT Alkaline Phosphatase Lactate Dehydrogenase Troponin T C-Reactive Protein Total Protein 6.2 L Albumin 2.9 L Prealbumin Triglycerides Cholesterol LDL Cholesterol Direct HDL Cholesterol Urine pH Urine WBC (Auto) Urine Creatinine Urine Total Protein Fluid Total Protein Vancomycin Trough Rheumatoid Factor Complement C4 Miscellaneous Test Crossmatch 09/13/16 09/14/16 09/14/16 23:23 04:06 04:07 WBC 29.4 H RBC Hgb 8.9 L Hct 27.3 L MCV 75 L MCH 24 L MCHC RDW 19.1 H Plt Count Lymph % (Auto) [place] % (Auto) Lymph # [place] # Baso # Seg Neutrophils % Seg Neuts % (Manual) 84.0 H Lymphocytes % (Manual) 6.0 L Monocytes % (Manual) 9.0 H Eosinophils % (Manual) Basophils % (Manual) Nucleated RBC % Seg Neutrophils # Seg Neutrophils # Man 24.7 H Lymphocytes # (Manual) Monocytes # (Manual) 2.6 H Eosinophils # (Manual) PT INR Fibrinogen dRVVT Confirm Interp Factor V Activity POC ABG pH 7.342 L POC ABG pCO2 POC ABG pO2 116 H ABG pO2 ABG HCO3 ABG Base Excess ABG Hemoglobin Oxyhemoglobin Sodium Potassium Chloride Carbon Dioxide BUN Creatinine Glucose POC Glucose 154 H Lactic Acid Calcium Phosphorus Magnesium Direct Bilirubin AST ALT Alkaline Phosphatase Lactate Dehydrogenase Troponin T C-Reactive Protein Total Protein Albumin Prealbumin Triglycerides Cholesterol LDL Cholesterol Direct HDL Cholesterol Urine pH Urine WBC (Auto) Urine Creatinine Urine Total Protein Fluid Total Protein Vancomycin Trough Rheumatoid Factor Complement C4 Miscellaneous Test Crossmatch 09/14/16 09/14/16 09/14/16 04:07 05:29 12:19 WBC RBC Hgb Hct MCV MCH MCHC RDW Plt Count Lymph % (Auto) [place] % (Auto) Lymph # [place] # Baso # Seg Neutrophils % Seg Neuts % (Manual) Lymphocytes % (Manual) Monocytes % (Manual) Eosinophils % (Manual) Basophils % (Manual) Nucleated RBC % Seg Neutrophils # Seg Neutrophils # Man Lymphocytes # (Manual) Monocytes # (Manual) Eosinophils # (Manual) PT INR Fibrinogen dRVVT Confirm Interp Factor V Activity POC ABG pH POC ABG pCO2 POC ABG pO2 ABG pO2 ABG HCO3 ABG Base Excess ABG Hemoglobin Oxyhemoglobin Sodium 136 L Potassium Chloride Carbon Dioxide 18 L BUN 121 H Creatinine 2.8 H Glucose 214 H POC Glucose 239 H 181 H Lactic Acid Calcium Phosphorus Magnesium Direct Bilirubin AST ALT Alkaline Phosphatase Lactate Dehydrogenase Troponin T C-Reactive Protein Total Protein Albumin Prealbumin Triglycerides Cholesterol LDL Cholesterol Direct HDL Cholesterol Urine pH Urine WBC (Auto) Urine Creatinine Urine Total Protein Fluid Total Protein Vancomycin Trough Rheumatoid Factor Complement C4 Miscellaneous Test Crossmatch 09/14/16 09/14/16 09/15/16 18:12 23:37 05:00 WBC 26.1 H RBC 3.05 L Hgb 7.2 L Hct 22.9 L MCV 75 L MCH 24 L MCHC RDW 19.0 H Plt Count Lymph % (Auto) [place] % (Auto) Lymph # [place] # Baso # Seg Neutrophils % Seg Neuts % (Manual) Lymphocytes % (Manual) Monocytes % (Manual) Eosinophils % (Manual) Basophils % (Manual) Nucleated RBC % Seg Neutrophils # Seg Neutrophils # Man Lymphocytes # (Manual) Monocytes # (Manual) Eosinophils # (Manual) PT INR Fibrinogen dRVVT Confirm Interp Factor V Activity POC ABG pH POC ABG pCO2 POC ABG pO2 ABG pO2 ABG HCO3 ABG Base Excess ABG Hemoglobin Oxyhemoglobin Sodium Potassium Chloride Carbon Dioxide BUN Creatinine Glucose POC Glucose 266 H 154 H Lactic Acid Calcium Phosphorus Magnesium Direct Bilirubin AST ALT Alkaline Phosphatase Lactate Dehydrogenase Troponin T C-Reactive Protein Total Protein Albumin Prealbumin Triglycerides Cholesterol LDL Cholesterol Direct HDL Cholesterol Urine pH Urine WBC (Auto) Urine Creatinine Urine Total Protein Fluid Total Protein Vancomycin Trough Rheumatoid Factor Complement C4 Miscellaneous Test Crossmatch 09/15/16 09/15/16 09/15/16 05:00 05:17 12:45 WBC RBC Hgb Hct MCV MCH MCHC RDW Plt Count Lymph % (Auto) [place] % (Auto) Lymph # [place] # Baso # Seg Neutrophils % Seg Neuts % (Manual) Lymphocytes % (Manual) Monocytes % (Manual) Eosinophils % (Manual) Basophils % (Manual) Nucleated RBC % Seg Neutrophils # Seg Neutrophils # Man Lymphocytes # (Manual) Monocytes # (Manual) Eosinophils # (Manual) PT INR Fibrinogen dRVVT Confirm Interp Factor V Activity POC ABG pH POC ABG pCO2 POC ABG pO2 ABG pO2 ABG HCO3 ABG Base Excess ABG Hemoglobin Oxyhemoglobin Sodium Potassium 5.2 H Chloride Carbon Dioxide 18 L BUN 139 H Creatinine 3.7 H Glucose 227 H POC Glucose 226 H 244 H Lactic Acid Calcium 8.3 L Phosphorus Magnesium Direct Bilirubin AST ALT Alkaline Phosphatase Lactate Dehydrogenase Troponin T C-Reactive Protein Total Protein Albumin Prealbumin Triglycerides Cholesterol LDL Cholesterol Direct HDL Cholesterol Urine pH Urine WBC (Auto) Urine Creatinine Urine Total Protein Fluid Total Protein Vancomycin Trough Rheumatoid Factor Complement C4 Miscellaneous Test Crossmatch 09/15/16 09/15/16 09/15/16 14:32 17:33 23:35 WBC RBC Hgb Hct MCV MCH MCHC RDW Plt Count Lymph % (Auto) [place] % (Auto) Lymph # [place] # Baso # Seg Neutrophils % Seg Neuts % (Manual) Lymphocytes % (Manual) Monocytes % (Manual) Eosinophils % (Manual) Basophils % (Manual) Nucleated RBC % Seg Neutrophils # Seg Neutrophils # Man Lymphocytes # (Manual) Monocytes # (Manual) Eosinophils # (Manual) PT INR Fibrinogen dRVVT Confirm Interp Factor V Activity POC ABG pH POC ABG pCO2 27.7 L POC ABG pO2 120 H ABG pO2 ABG HCO3 ABG Base Excess ABG Hemoglobin Oxyhemoglobin Sodium Potassium Chloride Carbon Dioxide BUN Creatinine Glucose POC Glucose 232 H 167 H Lactic Acid Calcium Phosphorus Magnesium Direct Bilirubin AST ALT Alkaline Phosphatase Lactate Dehydrogenase Troponin T C-Reactive Protein Total Protein Albumin Prealbumin Triglycerides Cholesterol LDL Cholesterol Direct HDL Cholesterol Urine pH Urine WBC (Auto) Urine Creatinine Urine Total Protein Fluid Total Protein Vancomycin Trough Rheumatoid Factor Complement C4 Miscellaneous Test Crossmatch 09/16/16 09/16/16 09/16/16 03:58 10:27 10:27 WBC 19.0 H RBC 2.77 L Hgb 6.5 L Hct 20.9 L MCV 76 L MCH 23 L MCHC RDW 19.3 H Plt Count Lymph % (Auto) 11.0 L [place] % (Auto) Lymph # [place] # 1.1 H Baso # Seg Neutrophils % 82.5 H Seg Neuts % (Manual) Lymphocytes % (Manual) Monocytes % (Manual) Eosinophils % (Manual) Basophils % (Manual) Nucleated RBC % Seg Neutrophils # 15.7 H Seg Neutrophils # Man Lymphocytes # (Manual) Monocytes # (Manual) Eosinophils # (Manual) PT INR Fibrinogen dRVVT Confirm Interp Factor V Activity POC ABG pH POC ABG pCO2 POC ABG pO2 ABG pO2 ABG HCO3 ABG Base Excess ABG Hemoglobin Oxyhemoglobin Sodium Potassium Chloride 109.3 H Carbon Dioxide 18 L BUN 139 H Creatinine 4.1 H Glucose 144 H POC Glucose 146 H Lactic Acid Calcium 8.1 L Phosphorus Magnesium Direct Bilirubin AST ALT Alkaline Phosphatase Lactate Dehydrogenase Troponin T C-Reactive Protein Total Protein Albumin Prealbumin Triglycerides Cholesterol LDL Cholesterol Direct HDL Cholesterol Urine pH Urine WBC (Auto) Urine Creatinine Urine Total Protein Fluid Total Protein Vancomycin Trough Rheumatoid Factor Complement C4 Miscellaneous Test Crossmatch 09/16/16 09/16/16 09/16/16 12:04 12:10 13:55 WBC RBC Hgb Hct MCV MCH MCHC RDW Plt Count Lymph % (Auto) [place] % (Auto) Lymph # [place] # Baso # Seg Neutrophils % Seg Neuts % (Manual) Lymphocytes % (Manual) Monocytes % (Manual) Eosinophils % (Manual) Basophils % (Manual) Nucleated RBC % Seg Neutrophils # Seg Neutrophils # Man Lymphocytes # (Manual) Monocytes # (Manual) Eosinophils # (Manual) PT INR Fibrinogen dRVVT Confirm Interp Factor V Activity POC ABG pH POC ABG pCO2 32.9 L POC ABG pO2 ABG pO2 ABG HCO3 ABG Base Excess ABG Hemoglobin Oxyhemoglobin Sodium Potassium Chloride Carbon Dioxide BUN Creatinine Glucose POC Glucose 185 H Lactic Acid Calcium Phosphorus Magnesium Direct Bilirubin AST ALT Alkaline Phosphatase Lactate Dehydrogenase Troponin T C-Reactive Protein Total Protein Albumin Prealbumin Triglycerides Cholesterol LDL Cholesterol Direct HDL Cholesterol Urine pH Urine WBC (Auto) Urine Creatinine Urine Total Protein Fluid Total Protein Vancomycin Trough Rheumatoid Factor Complement C4 Miscellaneous Test Crossmatch See Detail 09/16/16 09/16/16 09/16/16 17:55 19:19 23:48 WBC RBC Hgb Hct MCV MCH MCHC RDW Plt Count Lymph % (Auto) [place] % (Auto) Lymph # [place] # Baso # Seg Neutrophils % Seg Neuts % (Manual) Lymphocytes % (Manual) Monocytes % (Manual) Eosinophils % (Manual) Basophils % (Manual) Nucleated RBC % Seg Neutrophils # Seg Neutrophils # Man Lymphocytes # (Manual) Monocytes # (Manual) Eosinophils # (Manual) PT INR Fibrinogen dRVVT Confirm Interp Factor V Activity POC ABG pH POC ABG pCO2 POC ABG pO2 ABG pO2 ABG HCO3 ABG Base Excess ABG Hemoglobin Oxyhemoglobin Sodium Potassium Chloride Carbon Dioxide BUN Creatinine Glucose POC Glucose 222 H 107 H Lactic Acid Calcium Phosphorus Magnesium Direct Bilirubin AST ALT Alkaline Phosphatase Lactate Dehydrogenase Troponin T C-Reactive Protein Total Protein Albumin Prealbumin Triglycerides Cholesterol LDL Cholesterol Direct HDL Cholesterol Urine pH Urine WBC (Auto) Urine Creatinine 47.4 H Urine Total Protein 16 H Fluid Total Protein Vancomycin Trough Rheumatoid Factor Complement C4 Miscellaneous Test Crossmatch 09/17/16 09/17/16 09/17/16 03:45 03:45 04:55 WBC 19.6 H RBC 3.41 L Hgb 8.5 L Hct 26.7 L MCV 78 L MCH 25 L MCHC RDW 19.9 H Plt Count Lymph % (Auto) 9.3 L [place] % (Auto) Lymph # [place] # 1.2 H Baso # Seg Neutrophils % 83.9 H Seg Neuts % (Manual) Lymphocytes % (Manual) Monocytes % (Manual) Eosinophils % (Manual) Basophils % (Manual) Nucleated RBC % Seg Neutrophils # 16.4 H Seg Neutrophils # Man Lymphocytes # (Manual) Monocytes # (Manual) Eosinophils # (Manual) PT INR Fibrinogen dRVVT Confirm Interp Factor V Activity POC ABG pH POC ABG pCO2 POC ABG pO2 ABG pO2 ABG HCO3 ABG Base Excess ABG Hemoglobin Oxyhemoglobin Sodium 146 H Potassium 5.1 H Chloride 110.9 H Carbon Dioxide 16 L BUN 146 H Creatinine 4.0 H Glucose 108 H POC Glucose 133 H Lactic Acid Calcium Phosphorus Magnesium 3.00 H Direct Bilirubin AST ALT Alkaline Phosphatase Lactate Dehydrogenase Troponin T C-Reactive Protein Total Protein Albumin Prealbumin Triglycerides Cholesterol LDL Cholesterol Direct HDL Cholesterol Urine pH Urine WBC (Auto) Urine Creatinine Urine Total Protein Fluid Total Protein Vancomycin Trough Rheumatoid Factor Complement C4 Miscellaneous Test Crossmatch 09/17/16 09/17/16 09/17/16 11:15 17:33 23:47 WBC RBC Hgb Hct MCV MCH MCHC RDW Plt Count Lymph % (Auto) [place] % (Auto) Lymph # [place] # Baso # Seg Neutrophils % Seg Neuts % (Manual) Lymphocytes % (Manual) Monocytes % (Manual) Eosinophils % (Manual) Basophils % (Manual) Nucleated RBC % Seg Neutrophils # Seg Neutrophils # Man Lymphocytes # (Manual) Monocytes # (Manual) Eosinophils # (Manual) PT INR Fibrinogen dRVVT Confirm Interp Factor V Activity POC ABG pH POC ABG pCO2 POC ABG pO2 ABG pO2 ABG HCO3 ABG Base Excess ABG Hemoglobin Oxyhemoglobin Sodium Potassium Chloride Carbon Dioxide BUN Creatinine Glucose POC Glucose 176 H 246 H 148 H Lactic Acid Calcium Phosphorus Magnesium Direct Bilirubin AST ALT Alkaline Phosphatase Lactate Dehydrogenase Troponin T C-Reactive Protein Total Protein Albumin Prealbumin Triglycerides Cholesterol LDL Cholesterol Direct HDL Cholesterol Urine pH Urine WBC (Auto) Urine Creatinine Urine Total Protein Fluid Total Protein Vancomycin Trough Rheumatoid Factor Complement C4 Miscellaneous Test Crossmatch 09/18/16 09/18/16 09/18/16 05:33 08:31 08:31 WBC 18.0 H RBC 3.17 L Hgb 9.0 L Hct 25.7 L MCV MCH MCHC 35 H RDW 20.4 H Plt Count Lymph % (Auto) [place] % (Auto) Lymph # [place] # Baso # Seg Neutrophils % Seg Neuts % (Manual) Lymphocytes % (Manual) Monocytes % (Manual) Eosinophils % (Manual) Basophils % (Manual) Nucleated RBC % Seg Neutrophils # Seg Neutrophils # Man Lymphocytes # (Manual) Monocytes # (Manual) Eosinophils # (Manual) PT INR Fibrinogen dRVVT Confirm Interp Factor V Activity POC ABG pH POC ABG pCO2 POC ABG pO2 ABG pO2 ABG HCO3 ABG Base Excess ABG Hemoglobin Oxyhemoglobin Sodium Potassium Chloride Carbon Dioxide 15 L BUN 124 H Creatinine 3.8 H Glucose POC Glucose 120 H Lactic Acid Calcium 8.1 L Phosphorus Magnesium Direct Bilirubin AST ALT Alkaline Phosphatase Lactate Dehydrogenase Troponin T C-Reactive Protein Total Protein Albumin Prealbumin Triglycerides Cholesterol LDL Cholesterol Direct HDL Cholesterol Urine pH Urine WBC (Auto) Urine Creatinine Urine Total Protein Fluid Total Protein Vancomycin Trough Rheumatoid Factor Complement C4 Miscellaneous Test Crossmatch 09/18/16 09/18/16 09/18/16 12:03 15:34 17:50 WBC RBC Hgb Hct MCV MCH MCHC RDW Plt Count Lymph % (Auto) [place] % (Auto) Lymph # [place] # Baso # Seg Neutrophils % Seg Neuts % (Manual) Lymphocytes % (Manual) Monocytes % (Manual) Eosinophils % (Manual) Basophils % (Manual) Nucleated RBC % Seg Neutrophils # Seg Neutrophils # Man Lymphocytes # (Manual) Monocytes # (Manual) Eosinophils # (Manual) PT INR Fibrinogen dRVVT Confirm Interp Factor V Activity POC ABG pH POC ABG pCO2 25.7 L POC ABG pO2 66 L ABG pO2 ABG HCO3 ABG Base Excess ABG Hemoglobin Oxyhemoglobin Sodium Potassium Chloride Carbon Dioxide BUN Creatinine Glucose POC Glucose 156 H 220 H Lactic Acid Calcium Phosphorus Magnesium Direct Bilirubin AST ALT Alkaline Phosphatase Lactate Dehydrogenase Troponin T C-Reactive Protein Total Protein Albumin Prealbumin Triglycerides Cholesterol LDL Cholesterol Direct HDL Cholesterol Urine pH Urine WBC (Auto) Urine Creatinine Urine Total Protein Fluid Total Protein Vancomycin Trough Rheumatoid Factor Complement C4 Miscellaneous Test Crossmatch 09/19/16 09/19/16 09/19/16 06:21 09:50 09:50 WBC 17.1 H RBC 3.49 L Hgb 9.0 L Hct 28.1 L MCV MCH 26 L MCHC RDW 20.8 H Plt Count Lymph % (Auto) 11.5 L [place] % (Auto) 7.5 H Lymph # [place] # 1.3 H Baso # Seg Neutrophils % 79.8 H Seg Neuts % (Manual) Lymphocytes % (Manual) Monocytes % (Manual) Eosinophils % (Manual) Basophils % (Manual) Nucleated RBC % Seg Neutrophils # 13.7 H Seg Neutrophils # Man Lymphocytes # (Manual) Monocytes # (Manual) Eosinophils # (Manual) PT INR Fibrinogen dRVVT Confirm Interp Factor V Activity POC ABG pH POC ABG pCO2 POC ABG pO2 ABG pO2 ABG HCO3 ABG Base Excess ABG Hemoglobin Oxyhemoglobin Sodium Potassium Chloride 108.6 H Carbon Dioxide 15 L BUN 125 H Creatinine 4.1 H Glucose 124 H POC Glucose 119 H Lactic Acid Calcium Phosphorus Magnesium Direct Bilirubin AST ALT Alkaline Phosphatase Lactate Dehydrogenase Troponin T C-Reactive Protein Total Protein Albumin Prealbumin Triglycerides Cholesterol LDL Cholesterol Direct HDL Cholesterol Urine pH Urine WBC (Auto) Urine Creatinine Urine Total Protein Fluid Total Protein Vancomycin Trough Rheumatoid Factor Complement C4 Miscellaneous Test Crossmatch 09/19/16 09/19/16 09/19/16 11:25 17:53 23:36 WBC RBC Hgb Hct MCV MCH MCHC RDW Plt Count Lymph % (Auto) [place] % (Auto) Lymph # [place] # Baso # Seg Neutrophils % Seg Neuts % (Manual) Lymphocytes % (Manual) Monocytes % (Manual) Eosinophils % (Manual) Basophils % (Manual) Nucleated RBC % Seg Neutrophils # Seg Neutrophils # Man Lymphocytes # (Manual) Monocytes # (Manual) Eosinophils # (Manual) PT INR Fibrinogen dRVVT Confirm Interp Factor V Activity POC ABG pH POC ABG pCO2 POC ABG pO2 ABG pO2 ABG HCO3 ABG Base Excess ABG Hemoglobin Oxyhemoglobin Sodium Potassium Chloride Carbon Dioxide BUN Creatinine Glucose POC Glucose 160 H 245 H 121 H Lactic Acid Calcium Phosphorus Magnesium Direct Bilirubin AST ALT Alkaline Phosphatase Lactate Dehydrogenase Troponin T C-Reactive Protein Total Protein Albumin Prealbumin Triglycerides Cholesterol LDL Cholesterol Direct HDL Cholesterol Urine pH Urine WBC (Auto) Urine Creatinine Urine Total Protein Fluid Total Protein Vancomycin Trough Rheumatoid Factor Complement C4 Miscellaneous Test Crossmatch 09/20/16 09/20/16 09/20/16 04:10 04:10 04:10 WBC 17.0 H RBC 3.21 L Hgb 8.2 L Hct 25.5 L MCV MCH 26 L MCHC RDW 20.9 H Plt Count Lymph % (Auto) [place] % (Auto) Lymph # [place] # Baso # Seg Neutrophils % Seg Neuts % (Manual) Lymphocytes % (Manual) Monocytes % (Manual) Eosinophils % (Manual) Basophils % (Manual) Nucleated RBC % Seg Neutrophils # Seg Neutrophils # Man Lymphocytes # (Manual) Monocytes # (Manual) Eosinophils # (Manual) PT INR Fibrinogen dRVVT Confirm Interp Factor V Activity POC ABG pH POC ABG pCO2 POC ABG pO2 ABG pO2 ABG HCO3 ABG Base Excess ABG Hemoglobin Oxyhemoglobin Sodium Potassium Chloride 111.0 H Carbon Dioxide 16 L BUN 129 H Creatinine 3.7 H Glucose 115 H POC Glucose Lactic Acid Calcium 8.2 L Phosphorus Magnesium Direct Bilirubin AST ALT Alkaline Phosphatase Lactate Dehydrogenase Troponin T C-Reactive Protein Total Protein Albumin Prealbumin Triglycerides 243 H Cholesterol LDL Cholesterol Direct HDL Cholesterol Urine pH Urine WBC (Auto) Urine Creatinine Urine Total Protein Fluid Total Protein Vancomycin Trough Rheumatoid Factor Complement C4 Miscellaneous Test Crossmatch 09/20/16 09/20/16 09/20/16 05:40 11:52 16:50 WBC RBC Hgb Hct MCV MCH MCHC RDW Plt Count Lymph % (Auto) [place] % (Auto) Lymph # [place] # Baso # Seg Neutrophils % Seg Neuts % (Manual) Lymphocytes % (Manual) Monocytes % (Manual) Eosinophils % (Manual) Basophils % (Manual) Nucleated RBC % Seg Neutrophils # Seg Neutrophils # Man Lymphocytes # (Manual) Monocytes # (Manual) Eosinophils # (Manual) PT INR Fibrinogen dRVVT Confirm Interp Factor V Activity POC ABG pH POC ABG pCO2 POC ABG pO2 ABG pO2 ABG HCO3 ABG Base Excess ABG Hemoglobin Oxyhemoglobin Sodium Potassium Chloride Carbon Dioxide BUN Creatinine Glucose POC Glucose 131 H 183 H 236 H Lactic Acid Calcium Phosphorus Magnesium Direct Bilirubin AST ALT Alkaline Phosphatase Lactate Dehydrogenase Troponin T C-Reactive Protein Total Protein Albumin Prealbumin Triglycerides Cholesterol LDL Cholesterol Direct HDL Cholesterol Urine pH Urine WBC (Auto) Urine Creatinine Urine Total Protein Fluid Total Protein Vancomycin Trough Rheumatoid Factor Complement C4 Miscellaneous Test Crossmatch 09/20/16 09/21/16 09/21/16 23:51 03:30 04:44 WBC RBC Hgb Hct MCV MCH MCHC RDW Plt Count Lymph % (Auto) [place] % (Auto) Lymph # [place] # Baso # Seg Neutrophils % Seg Neuts % (Manual) Lymphocytes % (Manual) Monocytes % (Manual) Eosinophils % (Manual) Basophils % (Manual) Nucleated RBC % Seg Neutrophils # Seg Neutrophils # Man Lymphocytes # (Manual) Monocytes # (Manual) Eosinophils # (Manual) PT INR Fibrinogen dRVVT Confirm Interp Factor V Activity POC ABG pH POC ABG pCO2 POC ABG pO2 ABG pO2 ABG HCO3 ABG Base Excess ABG Hemoglobin Oxyhemoglobin Sodium Potassium Chloride Carbon Dioxide BUN Creatinine Glucose POC Glucose 114 H 141 H Lactic Acid Calcium Phosphorus Magnesium 2.70 H Direct Bilirubin AST ALT Alkaline Phosphatase Lactate Dehydrogenase Troponin T C-Reactive Protein Total Protein Albumin Prealbumin Triglycerides Cholesterol LDL Cholesterol Direct HDL Cholesterol Urine pH Urine WBC (Auto) Urine Creatinine Urine Total Protein Fluid Total Protein Vancomycin Trough Rheumatoid Factor Complement C4 Miscellaneous Test Crossmatch 09/21/16 09/21/16 09/21/16 07:45 07:45 10:01 WBC 13.8 H RBC 2.94 L Hgb 7.5 L Hct 23.5 L MCV MCH 26 L MCHC RDW 21.2 H Plt Count Lymph % (Auto) 6.9 L [place] % (Auto) 9.4 H Lymph # 0.9 L [place] # 1.3 H Baso # Seg Neutrophils % 83.2 H Seg Neuts % (Manual) Lymphocytes % (Manual) Monocytes % (Manual) Eosinophils % (Manual) Basophils % (Manual) Nucleated RBC % Seg Neutrophils # 11.5 H Seg Neutrophils # Man Lymphocytes # (Manual) Monocytes # (Manual) Eosinophils # (Manual) PT INR Fibrinogen dRVVT Confirm Interp Factor V Activity POC ABG pH 7.308 L POC ABG pCO2 31.9 L POC ABG pO2 148 H ABG pO2 ABG HCO3 ABG Base Excess ABG Hemoglobin Oxyhemoglobin Sodium 147 H Potassium Chloride 114.2 H Carbon Dioxide 15 L BUN 120 H Creatinine 3.9 H Glucose 156 H POC Glucose Lactic Acid Calcium 8.2 L Phosphorus Magnesium Direct Bilirubin AST ALT Alkaline Phosphatase Lactate Dehydrogenase Troponin T C-Reactive Protein Total Protein Albumin Prealbumin Triglycerides Cholesterol LDL Cholesterol Direct HDL Cholesterol Urine pH Urine WBC (Auto) Urine Creatinine Urine Total Protein Fluid Total Protein Vancomycin Trough Rheumatoid Factor Complement C4 Miscellaneous Test Crossmatch 09/21/16 09/21/16 09/21/16 12:00 12:03 13:00 WBC RBC Hgb Hct MCV MCH MCHC RDW Plt Count Lymph % (Auto) [place] % (Auto) Lymph # [place] # Baso # Seg Neutrophils % Seg Neuts % (Manual) Lymphocytes % (Manual) Monocytes % (Manual) Eosinophils % (Manual) Basophils % (Manual) Nucleated RBC % Seg Neutrophils # Seg Neutrophils # Man Lymphocytes # (Manual) Monocytes # (Manual) Eosinophils # (Manual) PT INR Fibrinogen dRVVT Confirm Interp Factor V Activity POC ABG pH POC ABG pCO2 POC ABG pO2 ABG pO2 ABG HCO3 ABG Base Excess ABG Hemoglobin Oxyhemoglobin Sodium Potassium Chloride Carbon Dioxide BUN Creatinine Glucose POC Glucose 163 H Lactic Acid Calcium Phosphorus Magnesium Direct Bilirubin AST ALT Alkaline Phosphatase Lactate Dehydrogenase Troponin T C-Reactive Protein Total Protein Albumin Prealbumin Triglycerides Cholesterol LDL Cholesterol Direct HDL Cholesterol Urine pH Urine WBC (Auto) Urine Creatinine 54.8 H Urine Total Protein Fluid Total Protein Vancomycin Trough 2.3 L Rheumatoid Factor Complement C4 Miscellaneous Test Crossmatch 09/21/16 09/21/16 09/22/16 16:51 23:17 06:27 WBC RBC Hgb Hct MCV MCH MCHC RDW Plt Count Lymph % (Auto) [place] % (Auto) Lymph # [place] # Baso # Seg Neutrophils % Seg Neuts % (Manual) Lymphocytes % (Manual) Monocytes % (Manual) Eosinophils % (Manual) Basophils % (Manual) Nucleated RBC % Seg Neutrophils # Seg Neutrophils # Man Lymphocytes # (Manual) Monocytes # (Manual) Eosinophils # (Manual) PT INR Fibrinogen dRVVT Confirm Interp Factor V Activity POC ABG pH POC ABG pCO2 POC ABG pO2 ABG pO2 ABG HCO3 ABG Base Excess ABG Hemoglobin Oxyhemoglobin Sodium Potassium Chloride Carbon Dioxide BUN Creatinine Glucose POC Glucose 206 H 114 H 115 H Lactic Acid Calcium Phosphorus Magnesium Direct Bilirubin AST ALT Alkaline Phosphatase Lactate Dehydrogenase Troponin T C-Reactive Protein Total Protein Albumin Prealbumin Triglycerides Cholesterol LDL Cholesterol Direct HDL Cholesterol Urine pH Urine WBC (Auto) Urine Creatinine Urine Total Protein Fluid Total Protein Vancomycin Trough Rheumatoid Factor Complement C4 Miscellaneous Test Crossmatch 09/22/16 09/22/16 09/22/16 07:50 07:50 12:00 WBC 17.8 H RBC 3.04 L Hgb 8.0 L Hct 24.7 L MCV MCH 26 L MCHC RDW 21.6 H Plt Count Lymph % (Auto) [place] % (Auto) Lymph # [place] # Baso # Seg Neutrophils % Seg Neuts % (Manual) Lymphocytes % (Manual) Monocytes % (Manual) Eosinophils % (Manual) Basophils % (Manual) Nucleated RBC % Seg Neutrophils # Seg Neutrophils # Man Lymphocytes # (Manual) Monocytes # (Manual) Eosinophils # (Manual) PT INR Fibrinogen dRVVT Confirm Interp Factor V Activity POC ABG pH POC ABG pCO2 POC ABG pO2 ABG pO2 ABG HCO3 ABG Base Excess ABG Hemoglobin Oxyhemoglobin Sodium 150 H Potassium Chloride 118.2 H Carbon Dioxide 14 L BUN 111 H Creatinine 3.7 H Glucose 157 H POC Glucose 183 H Lactic Acid Calcium Phosphorus Magnesium Direct Bilirubin AST ALT Alkaline Phosphatase Lactate Dehydrogenase Troponin T C-Reactive Protein Total Protein Albumin Prealbumin Triglycerides Cholesterol LDL Cholesterol Direct HDL Cholesterol Urine pH Urine WBC (Auto) Urine Creatinine Urine Total Protein Fluid Total Protein Vancomycin Trough Rheumatoid Factor Complement C4 Miscellaneous Test Crossmatch 09/22/16 09/22/16 09/23/16 17:29 23:10 05:00 WBC 19.2 H RBC 3.13 L Hgb 8.0 L Hct 25.2 L MCV MCH 26 L MCHC RDW 22.1 H Plt Count Lymph % (Auto) [place] % (Auto) Lymph # [place] # Baso # Seg Neutrophils % Seg Neuts % (Manual) 92.0 H Lymphocytes % (Manual) 3.0 L Monocytes % (Manual) Eosinophils % (Manual) Basophils % (Manual) Nucleated RBC % Seg Neutrophils # Seg Neutrophils # Man 17.7 H Lymphocytes # (Manual) 0.6 L Monocytes # (Manual) Eosinophils # (Manual) PT INR Fibrinogen dRVVT Confirm Interp Factor V Activity POC ABG pH POC ABG pCO2 POC ABG pO2 ABG pO2 ABG HCO3 ABG Base Excess ABG Hemoglobin Oxyhemoglobin Sodium Potassium Chloride Carbon Dioxide BUN Creatinine Glucose POC Glucose 197 H 169 H Lactic Acid Calcium Phosphorus Magnesium Direct Bilirubin AST ALT Alkaline Phosphatase Lactate Dehydrogenase Troponin T C-Reactive Protein Total Protein Albumin Prealbumin Triglycerides Cholesterol LDL Cholesterol Direct HDL Cholesterol Urine pH Urine WBC (Auto) Urine Creatinine Urine Total Protein Fluid Total Protein Vancomycin Trough Rheumatoid Factor Complement C4 Miscellaneous Test Crossmatch 09/23/16 09/23/16 09/23/16 05:00 05:00 05:10 WBC RBC Hgb Hct MCV MCH MCHC RDW Plt Count Lymph % (Auto) [place] % (Auto) Lymph # [place] # Baso # Seg Neutrophils % Seg Neuts % (Manual) Lymphocytes % (Manual) Monocytes % (Manual) Eosinophils % (Manual) Basophils % (Manual) Nucleated RBC % Seg Neutrophils # Seg Neutrophils # Man Lymphocytes # (Manual) Monocytes # (Manual) Eosinophils # (Manual) PT INR Fibrinogen dRVVT Confirm Interp Factor V Activity POC ABG pH POC ABG pCO2 POC ABG pO2 ABG pO2 ABG HCO3 ABG Base Excess ABG Hemoglobin Oxyhemoglobin Sodium 147 H Potassium 3.2 L Chloride 115.7 H Carbon Dioxide 13 L BUN 111 H Creatinine 3.8 H Glucose 194 H POC Glucose 188 H Lactic Acid Calcium 7.3 L D Phosphorus Magnesium Direct Bilirubin AST ALT Alkaline Phosphatase Lactate Dehydrogenase Troponin T C-Reactive Protein 3.20 H Total Protein Albumin Prealbumin Triglycerides Cholesterol LDL Cholesterol Direct HDL Cholesterol Urine pH Urine WBC (Auto) Urine Creatinine Urine Total Protein Fluid Total Protein Vancomycin Trough Rheumatoid Factor Complement C4 Miscellaneous Test Crossmatch 09/23/16 09/23/16 09/23/16 11:37 12:29 18:01 WBC RBC Hgb Hct MCV MCH MCHC RDW Plt Count Lymph % (Auto) [place] % (Auto) Lymph # [place] # Baso # Seg Neutrophils % Seg Neuts % (Manual) Lymphocytes % (Manual) Monocytes % (Manual) Eosinophils % (Manual) Basophils % (Manual) Nucleated RBC % Seg Neutrophils # Seg Neutrophils # Man Lymphocytes # (Manual) Monocytes # (Manual) Eosinophils # (Manual) PT INR Fibrinogen dRVVT Confirm Interp Factor V Activity POC ABG pH POC ABG pCO2 18.9 L POC ABG pO2 143 H ABG pO2 ABG HCO3 ABG Base Excess ABG Hemoglobin Oxyhemoglobin Sodium Potassium Chloride Carbon Dioxide BUN Creatinine Glucose POC Glucose 153 H 108 H Lactic Acid Calcium Phosphorus Magnesium Direct Bilirubin AST ALT Alkaline Phosphatase Lactate Dehydrogenase Troponin T C-Reactive Protein Total Protein Albumin Prealbumin Triglycerides Cholesterol LDL Cholesterol Direct HDL Cholesterol Urine pH Urine WBC (Auto) Urine Creatinine Urine Total Protein Fluid Total Protein Vancomycin Trough Rheumatoid Factor Complement C4 Miscellaneous Test Crossmatch 09/23/16 09/23/16 09/24/16 21:19 23:43 05:16 WBC RBC Hgb Hct MCV MCH MCHC RDW Plt Count Lymph % (Auto) [place] % (Auto) Lymph # [place] # Baso # Seg Neutrophils % Seg Neuts % (Manual) Lymphocytes % (Manual) Monocytes % (Manual) Eosinophils % (Manual) Basophils % (Manual) Nucleated RBC % Seg Neutrophils # Seg Neutrophils # Man Lymphocytes # (Manual) Monocytes # (Manual) Eosinophils # (Manual) PT INR Fibrinogen dRVVT Confirm Interp Factor V Activity POC ABG pH POC ABG pCO2 17.3 L POC ABG pO2 112 H ABG pO2 ABG HCO3 ABG Base Excess ABG Hemoglobin Oxyhemoglobin Sodium Potassium Chloride Carbon Dioxide BUN Creatinine Glucose POC Glucose 143 H 164 H Lactic Acid Calcium Phosphorus Magnesium Direct Bilirubin AST ALT Alkaline Phosphatase Lactate Dehydrogenase Troponin T C-Reactive Protein Total Protein Albumin Prealbumin Triglycerides Cholesterol LDL Cholesterol Direct HDL Cholesterol Urine pH Urine WBC (Auto) Urine Creatinine Urine Total Protein Fluid Total Protein Vancomycin Trough Rheumatoid Factor Complement C4 Miscellaneous Test Crossmatch 09/24/16 09/24/16 09/24/16 05:21 11:58 17:06 WBC RBC Hgb Hct MCV MCH MCHC RDW Plt Count Lymph % (Auto) [place] % (Auto) Lymph # [place] # Baso # Seg Neutrophils % Seg Neuts % (Manual) Lymphocytes % (Manual) Monocytes % (Manual) Eosinophils % (Manual) Basophils % (Manual) Nucleated RBC % Seg Neutrophils # Seg Neutrophils # Man Lymphocytes # (Manual) Monocytes # (Manual) Eosinophils # (Manual) PT INR Fibrinogen dRVVT Confirm Interp Factor V Activity POC ABG pH POC ABG pCO2 POC ABG pO2 ABG pO2 ABG HCO3 ABG Base Excess ABG Hemoglobin Oxyhemoglobin Sodium Potassium Chloride Carbon Dioxide 10 L BUN 103 H Creatinine 4.3 H Glucose 163 H POC Glucose 173 H 167 H Lactic Acid Calcium 6.5 L Phosphorus Magnesium Direct Bilirubin AST ALT Alkaline Phosphatase Lactate Dehydrogenase Troponin T C-Reactive Protein Total Protein Albumin Prealbumin Triglycerides Cholesterol LDL Cholesterol Direct HDL Cholesterol Urine pH Urine WBC (Auto) Urine Creatinine Urine Total Protein Fluid Total Protein Vancomycin Trough Rheumatoid Factor Complement C4 Miscellaneous Test Crossmatch 09/24/16 09/24/16 09/24/16 20:15 21:02 23:48 WBC RBC Hgb Hct MCV MCH MCHC RDW Plt Count Lymph % (Auto) [place] % (Auto) Lymph # [place] # Baso # Seg Neutrophils % Seg Neuts % (Manual) Lymphocytes % (Manual) Monocytes % (Manual) Eosinophils % (Manual) Basophils % (Manual) Nucleated RBC % Seg Neutrophils # Seg Neutrophils # Man Lymphocytes # (Manual) Monocytes # (Manual) Eosinophils # (Manual) PT INR Fibrinogen dRVVT Confirm Interp Factor V Activity POC ABG pH 7.288 L POC ABG pCO2 30.2 L 21.5 L POC ABG pO2 32 L 39 L ABG pO2 ABG HCO3 ABG Base Excess ABG Hemoglobin Oxyhemoglobin Sodium Potassium Chloride Carbon Dioxide BUN Creatinine Glucose POC Glucose 109 H Lactic Acid Calcium Phosphorus Magnesium Direct Bilirubin AST ALT Alkaline Phosphatase Lactate Dehydrogenase Troponin T C-Reactive Protein Total Protein Albumin Prealbumin Triglycerides Cholesterol LDL Cholesterol Direct HDL Cholesterol Urine pH Urine WBC (Auto) Urine Creatinine Urine Total Protein Fluid Total Protein Vancomycin Trough Rheumatoid Factor Complement C4 Miscellaneous Test Crossmatch 09/25/16 09/25/16 09/25/16 04:20 04:20 04:20 WBC RBC 2.58 L Hgb 7.0 L Hct 21.0 L MCV MCH 27 L MCHC RDW 23.8 H Plt Count Lymph % (Auto) [place] % (Auto) Lymph # [place] # Baso # Seg Neutrophils % Seg Neuts % (Manual) Lymphocytes % (Manual) 12.0 L Monocytes % (Manual) Eosinophils % (Manual) 7.0 H Basophils % (Manual) 2.0 H Nucleated RBC % Seg Neutrophils # Seg Neutrophils # Man Lymphocytes # (Manual) 0.9 L Monocytes # (Manual) Eosinophils # (Manual) 0.5 H PT INR Fibrinogen dRVVT Confirm Interp Factor V Activity POC ABG pH POC ABG pCO2 POC ABG pO2 ABG pO2 ABG HCO3 ABG Base Excess ABG Hemoglobin Oxyhemoglobin Sodium Potassium Chloride Carbon Dioxide 15 L BUN 72 H Creatinine 3.8 H Glucose POC Glucose Lactic Acid Calcium 6.0 L Phosphorus 4.60 H Magnesium 1.60 L Direct Bilirubin AST ALT Alkaline Phosphatase Lactate Dehydrogenase Troponin T C-Reactive Protein Total Protein Albumin Prealbumin Triglycerides Cholesterol LDL Cholesterol Direct HDL Cholesterol Urine pH Urine WBC (Auto) Urine Creatinine Urine Total Protein Fluid Total Protein Vancomycin Trough Rheumatoid Factor Complement C4 Miscellaneous Test Crossmatch 09/25/16 09/25/16 09/25/16 04:57 08:02 10:30 WBC RBC Hgb Hct MCV MCH MCHC RDW Plt Count Lymph % (Auto) [place] % (Auto) Lymph # [place] # Baso # Seg Neutrophils % Seg Neuts % (Manual) Lymphocytes % (Manual) Monocytes % (Manual) Eosinophils % (Manual) Basophils % (Manual) Nucleated RBC % Seg Neutrophils # Seg Neutrophils # Man Lymphocytes # (Manual) Monocytes # (Manual) Eosinophils # (Manual) PT INR Fibrinogen dRVVT Confirm Interp Factor V Activity POC ABG pH POC ABG pCO2 24.7 L POC ABG pO2 152 H ABG pO2 ABG HCO3 ABG Base Excess ABG Hemoglobin Oxyhemoglobin Sodium Potassium Chloride Carbon Dioxide BUN Creatinine Glucose POC Glucose 113 H Lactic Acid Calcium Phosphorus Magnesium Direct Bilirubin AST ALT Alkaline Phosphatase Lactate Dehydrogenase Troponin T C-Reactive Protein Total Protein Albumin Prealbumin Triglycerides Cholesterol LDL Cholesterol Direct HDL Cholesterol Urine pH Urine WBC (Auto) Urine Creatinine Urine Total Protein Fluid Total Protein Vancomycin Trough Rheumatoid Factor Complement C4 Miscellaneous Test Crossmatch See Detail 09/25/16 09/25/16 09/25/16 12:05 17:44 23:47 WBC RBC Hgb Hct MCV MCH MCHC RDW Plt Count Lymph % (Auto) [place] % (Auto) Lymph # [place] # Baso # Seg Neutrophils % Seg Neuts % (Manual) Lymphocytes % (Manual) Monocytes % (Manual) Eosinophils % (Manual) Basophils % (Manual) Nucleated RBC % Seg Neutrophils # Seg Neutrophils # Man Lymphocytes # (Manual) Monocytes # (Manual) Eosinophils # (Manual) PT INR Fibrinogen dRVVT Confirm Interp Factor V Activity POC ABG pH POC ABG pCO2 POC ABG pO2 ABG pO2 ABG HCO3 ABG Base Excess ABG Hemoglobin Oxyhemoglobin Sodium Potassium Chloride Carbon Dioxide BUN Creatinine Glucose POC Glucose 117 H 119 H 150 H Lactic Acid Calcium Phosphorus Magnesium Direct Bilirubin AST ALT Alkaline Phosphatase Lactate Dehydrogenase Troponin T C-Reactive Protein Total Protein Albumin Prealbumin Triglycerides Cholesterol LDL Cholesterol Direct HDL Cholesterol Urine pH Urine WBC (Auto) Urine Creatinine Urine Total Protein Fluid Total Protein Vancomycin Trough Rheumatoid Factor Complement C4 Miscellaneous Test Crossmatch 09/26/16 09/26/16 09/26/16 04:25 04:25 04:25 WBC RBC 2.65 L Hgb 7.4 L Hct 21.6 L MCV MCH MCHC RDW 22.5 H Plt Count Lymph % (Auto) [place] % (Auto) Lymph # [place] # Baso # Seg Neutrophils % Seg Neuts % (Manual) Lymphocytes % (Manual) 6.0 L Monocytes % (Manual) Eosinophils % (Manual) 11.0 H Basophils % (Manual) Nucleated RBC % Seg Neutrophils # Seg Neutrophils # Man Lymphocytes # (Manual) 0.4 L Monocytes # (Manual) Eosinophils # (Manual) 0.6 H PT INR Fibrinogen dRVVT Confirm Interp Factor V Activity POC ABG pH POC ABG pCO2 POC ABG pO2 ABG pO2 ABG HCO3 ABG Base Excess ABG Hemoglobin Oxyhemoglobin Sodium Potassium Chloride 97.0 L Carbon Dioxide 19 L BUN 43 H Creatinine 2.6 H Glucose 130 H POC Glucose Lactic Acid 4.40 H* Calcium 6.7 L Phosphorus Magnesium Direct Bilirubin AST ALT Alkaline Phosphatase Lactate Dehydrogenase Troponin T C-Reactive Protein Total Protein Albumin Prealbumin Triglycerides Cholesterol LDL Cholesterol Direct HDL Cholesterol Urine pH Urine WBC (Auto) Urine Creatinine Urine Total Protein Fluid Total Protein Vancomycin Trough Rheumatoid Factor Complement C4 Miscellaneous Test Crossmatch 09/26/16 09/26/16 09/26/16 05:20 11:44 12:12 WBC RBC Hgb Hct MCV MCH MCHC RDW Plt Count Lymph % (Auto) [place] % (Auto) Lymph # [place] # Baso # Seg Neutrophils % Seg Neuts % (Manual) Lymphocytes % (Manual) Monocytes % (Manual) Eosinophils % (Manual) Basophils % (Manual) Nucleated RBC % Seg Neutrophils # Seg Neutrophils # Man Lymphocytes # (Manual) Monocytes # (Manual) Eosinophils # (Manual) PT INR Fibrinogen dRVVT Confirm Interp Factor V Activity POC ABG pH POC ABG pCO2 27.0 L POC ABG pO2 69 L ABG pO2 ABG HCO3 ABG Base Excess ABG Hemoglobin Oxyhemoglobin Sodium Potassium Chloride Carbon Dioxide BUN Creatinine Glucose POC Glucose 121 H 128 H Lactic Acid Calcium Phosphorus Magnesium Direct Bilirubin AST ALT Alkaline Phosphatase Lactate Dehydrogenase Troponin T C-Reactive Protein Total Protein Albumin Prealbumin Triglycerides Cholesterol LDL Cholesterol Direct HDL Cholesterol Urine pH Urine WBC (Auto) Urine Creatinine Urine Total Protein Fluid Total Protein Vancomycin Trough Rheumatoid Factor Complement C4 Miscellaneous Test Crossmatch 09/26/16 09/26/16 09/27/16 18:31 23:40 08:20 WBC RBC Hgb Hct MCV MCH MCHC RDW Plt Count Lymph % (Auto) [place] % (Auto) Lymph # [place] # Baso # Seg Neutrophils % Seg Neuts % (Manual) Lymphocytes % (Manual) Monocytes % (Manual) Eosinophils % (Manual) Basophils % (Manual) Nucleated RBC % Seg Neutrophils # Seg Neutrophils # Man Lymphocytes # (Manual) Monocytes # (Manual) Eosinophils # (Manual) PT INR Fibrinogen dRVVT Confirm Interp Factor V Activity POC ABG pH POC ABG pCO2 POC ABG pO2 ABG pO2 ABG HCO3 ABG Base Excess ABG Hemoglobin Oxyhemoglobin Sodium Potassium Chloride Carbon Dioxide BUN Creatinine Glucose POC Glucose 120 H 133 H Lactic Acid 4.10 H* Calcium Phosphorus Magnesium Direct Bilirubin AST ALT Alkaline Phosphatase Lactate Dehydrogenase Troponin T C-Reactive Protein Total Protein Albumin Prealbumin Triglycerides Cholesterol LDL Cholesterol Direct HDL Cholesterol Urine pH Urine WBC (Auto) Urine Creatinine Urine Total Protein Fluid Total Protein Vancomycin Trough Rheumatoid Factor Complement C4 Miscellaneous Test Crossmatch 09/27/16 09/27/16 09/27/16 11:23 15:00 18:15 WBC RBC Hgb Hct MCV MCH MCHC RDW Plt Count Lymph % (Auto) [place] % (Auto) Lymph # [place] # Baso # Seg Neutrophils % Seg Neuts % (Manual) Lymphocytes % (Manual) Monocytes % (Manual) Eosinophils % (Manual) Basophils % (Manual) Nucleated RBC % Seg Neutrophils # Seg Neutrophils # Man Lymphocytes # (Manual) Monocytes # (Manual) Eosinophils # (Manual) PT INR Fibrinogen dRVVT Confirm Interp Factor V Activity POC ABG pH 7.459 H POC ABG pCO2 27.1 L POC ABG pO2 140 H ABG pO2 ABG HCO3 ABG Base Excess ABG Hemoglobin Oxyhemoglobin Sodium Potassium Chloride Carbon Dioxide BUN Creatinine Glucose POC Glucose 114 H 127 H Lactic Acid Calcium Phosphorus Magnesium Direct Bilirubin AST ALT Alkaline Phosphatase Lactate Dehydrogenase Troponin T C-Reactive Protein Total Protein Albumin Prealbumin Triglycerides Cholesterol LDL Cholesterol Direct HDL Cholesterol Urine pH Urine WBC (Auto) Urine Creatinine Urine Total Protein Fluid Total Protein Vancomycin Trough Rheumatoid Factor Complement C4 Miscellaneous Test Crossmatch 09/27/16 09/27/16 09/28/16 Unknown Unknown 03:45 WBC RBC 2.49 L Hgb 6.8 L Hct 20.7 L MCV MCH 27 L MCHC RDW 22.1 H Plt Count Lymph % (Auto) [place] % (Auto) Lymph # [place] # Baso # Seg Neutrophils % Seg Neuts % (Manual) 32.0 L Lymphocytes % (Manual) 12.0 L Monocytes % (Manual) 11.0 H Eosinophils % (Manual) 10.0 H Basophils % (Manual) Nucleated RBC % Seg Neutrophils # Seg Neutrophils # Man Lymphocytes # (Manual) 1.0 L Monocytes # (Manual) 0.9 H Eosinophils # (Manual) 0.8 H PT INR Fibrinogen dRVVT Confirm Interp Factor V Activity POC ABG pH POC ABG pCO2 POC ABG pO2 ABG pO2 ABG HCO3 ABG Base Excess ABG Hemoglobin Oxyhemoglobin Sodium 135 L 135 L Potassium 3.5 L Chloride 93.6 L 94.4 L Carbon Dioxide 17 L 21 L BUN 45 H 28 H Creatinine 3.3 H 2.5 H Glucose 106 H POC Glucose Lactic Acid Calcium 7.3 L 7.1 L Phosphorus Magnesium Direct Bilirubin AST ALT Alkaline Phosphatase Lactate Dehydrogenase Troponin T C-Reactive Protein Total Protein Albumin Prealbumin Triglycerides Cholesterol LDL Cholesterol Direct HDL Cholesterol Urine pH Urine WBC (Auto) Urine Creatinine Urine Total Protein Fluid Total Protein Vancomycin Trough Rheumatoid Factor Complement C4 Miscellaneous Test Crossmatch 09/28/16 09/28/16 09/28/16 03:45 07:25 11:58 WBC 13.3 H RBC 3.01 L Hgb 8.4 L Hct 25.0 L MCV MCH MCHC RDW 20.5 H Plt Count 128 L Lymph % (Auto) [place] % (Auto) Lymph # [place] # Baso # Seg Neutrophils % Seg Neuts % (Manual) Lymphocytes % (Manual) 7.0 L Monocytes % (Manual) Eosinophils % (Manual) 6.0 H Basophils % (Manual) Nucleated RBC % Seg Neutrophils # Seg Neutrophils # Man Lymphocytes # (Manual) 0.9 L Monocytes # (Manual) Eosinophils # (Manual) 0.8 H PT INR Fibrinogen dRVVT Confirm Interp Factor V Activity POC ABG pH POC ABG pCO2 POC ABG pO2 ABG pO2 ABG HCO3 ABG Base Excess ABG Hemoglobin Oxyhemoglobin Sodium Potassium Chloride Carbon Dioxide BUN Creatinine Glucose POC Glucose 121 H Lactic Acid 4.50 H* Calcium Phosphorus Magnesium Direct Bilirubin AST ALT Alkaline Phosphatase Lactate Dehydrogenase Troponin T C-Reactive Protein Total Protein Albumin Prealbumin Triglycerides Cholesterol LDL Cholesterol Direct HDL Cholesterol Urine pH Urine WBC (Auto) Urine Creatinine Urine Total Protein Fluid Total Protein Vancomycin Trough Rheumatoid Factor Complement C4 Miscellaneous Test Crossmatch 09/29/16 09/29/16 09/29/16 06:45 06:45 06:45 WBC 14.9 H RBC 2.74 L Hgb 7.6 L Hct 23.2 L MCV MCH MCHC RDW 20.5 H Plt Count 81 L Lymph % (Auto) [place] % (Auto) Lymph # [place] # Baso # Seg Neutrophils % Seg Neuts % (Manual) 81.0 H Lymphocytes % (Manual) 4.0 L Monocytes % (Manual) Eosinophils % (Manual) Basophils % (Manual) Nucleated RBC % Seg Neutrophils # Seg Neutrophils # Man 12.1 H Lymphocytes # (Manual) 0.6 L Monocytes # (Manual) Eosinophils # (Manual) PT INR Fibrinogen dRVVT Confirm Interp Factor V Activity POC ABG pH POC ABG pCO2 POC ABG pO2 ABG pO2 ABG HCO3 ABG Base Excess ABG Hemoglobin Oxyhemoglobin Sodium 133 L Potassium 3.4 L Chloride 92.5 L Carbon Dioxide 21 L BUN 33 H Creatinine 3.0 H Glucose POC Glucose Lactic Acid Calcium 6.6 L Phosphorus Magnesium 1.40 L Direct Bilirubin 0.9 H AST ALT Alkaline Phosphatase Lactate Dehydrogenase Troponin T C-Reactive Protein Total Protein 4.3 L Albumin 1.3 L Prealbumin Triglycerides Cholesterol LDL Cholesterol Direct HDL Cholesterol Urine pH Urine WBC (Auto) Urine Creatinine Urine Total Protein Fluid Total Protein Vancomycin Trough Rheumatoid Factor Complement C4 Miscellaneous Test Crossmatch 09/29/16 09/29/16 09/30/16 17:52 20:12 00:07 WBC RBC Hgb Hct MCV MCH MCHC RDW Plt Count Lymph % (Auto) [place] % (Auto) Lymph # [place] # Baso # Seg Neutrophils % Seg Neuts % (Manual) Lymphocytes % (Manual) Monocytes % (Manual) Eosinophils % (Manual) Basophils % (Manual) Nucleated RBC % Seg Neutrophils # Seg Neutrophils # Man Lymphocytes # (Manual) Monocytes # (Manual) Eosinophils # (Manual) PT INR Fibrinogen dRVVT Confirm Interp Factor V Activity POC ABG pH POC ABG pCO2 POC ABG pO2 ABG pO2 ABG HCO3 ABG Base Excess ABG Hemoglobin Oxyhemoglobin Sodium Potassium Chloride Carbon Dioxide BUN Creatinine Glucose POC Glucose 50 L 51 L Lactic Acid Calcium Phosphorus Magnesium Direct Bilirubin AST ALT Alkaline Phosphatase Lactate Dehydrogenase Troponin T 0.204 H* C-Reactive Protein Total Protein Albumin Prealbumin Triglycerides Cholesterol 31 L LDL Cholesterol Direct 4 L HDL Cholesterol 3 L Urine pH Urine WBC (Auto) Urine Creatinine Urine Total Protein Fluid Total Protein Vancomycin Trough Rheumatoid Factor Complement C4 Miscellaneous Test Crossmatch 09/30/16 09/30/16 09/30/16 01:30 05:15 06:10 WBC RBC Hgb Hct MCV MCH MCHC RDW Plt Count Lymph % (Auto) [place] % (Auto) Lymph # [place] # Baso # Seg Neutrophils % Seg Neuts % (Manual) Lymphocytes % (Manual) Monocytes % (Manual) Eosinophils % (Manual) Basophils % (Manual) Nucleated RBC % Seg Neutrophils # Seg Neutrophils # Man Lymphocytes # (Manual) Monocytes # (Manual) Eosinophils # (Manual) PT INR Fibrinogen dRVVT Confirm Interp Factor V Activity POC ABG pH POC ABG pCO2 POC ABG pO2 ABG pO2 ABG HCO3 ABG Base Excess ABG Hemoglobin Oxyhemoglobin Sodium 133 L Potassium 3.2 L Chloride 93.2 L Carbon Dioxide 19 L BUN 36 H Creatinine 3.2 H Glucose 104 H POC Glucose 167 H 146 H Lactic Acid Calcium 6.4 L Phosphorus Magnesium 1.60 L Direct Bilirubin AST ALT Alkaline Phosphatase Lactate Dehydrogenase Troponin T C-Reactive Protein Total Protein Albumin Prealbumin Triglycerides Cholesterol LDL Cholesterol Direct HDL Cholesterol Urine pH Urine WBC (Auto) Urine Creatinine Urine Total Protein Fluid Total Protein Vancomycin Trough Rheumatoid Factor Complement C4 Miscellaneous Test Crossmatch 09/30/16 09/30/16 09/30/16 11:26 13:39 18:38 WBC RBC Hgb Hct MCV MCH MCHC RDW Plt Count Lymph % (Auto) [place] % (Auto) Lymph # [place] # Baso # Seg Neutrophils % Seg Neuts % (Manual) Lymphocytes % (Manual) Monocytes % (Manual) Eosinophils % (Manual) Basophils % (Manual) Nucleated RBC % Seg Neutrophils # Seg Neutrophils # Man Lymphocytes # (Manual) Monocytes # (Manual) Eosinophils # (Manual) PT INR Fibrinogen dRVVT Confirm Interp Factor V Activity POC ABG pH 7.479 H POC ABG pCO2 29.8 L POC ABG pO2 117 H ABG pO2 ABG HCO3 ABG Base Excess ABG Hemoglobin Oxyhemoglobin Sodium Potassium Chloride Carbon Dioxide BUN Creatinine Glucose POC Glucose 140 H 122 H Lactic Acid Calcium Phosphorus Magnesium Direct Bilirubin AST ALT Alkaline Phosphatase Lactate Dehydrogenase Troponin T C-Reactive Protein Total Protein Albumin Prealbumin Triglycerides Cholesterol LDL Cholesterol Direct HDL Cholesterol Urine pH Urine WBC (Auto) Urine Creatinine Urine Total Protein Fluid Total Protein Vancomycin Trough Rheumatoid Factor Complement C4 Miscellaneous Test Crossmatch 10/01/16 10/01/16 10/01/16 06:00 06:00 12:37 WBC 12.6 H RBC 2.75 L Hgb 7.3 L Hct 23.3 L MCV MCH 27 L MCHC RDW 20.6 H Plt Count 72 L Lymph % (Auto) [place] % (Auto) Lymph # [place] # Baso # Seg Neutrophils % Seg Neuts % (Manual) 31.0 L Lymphocytes % (Manual) 8.0 L Monocytes % (Manual) Eosinophils % (Manual) Basophils % (Manual) Nucleated RBC % 3.0 H Seg Neutrophils # Seg Neutrophils # Man Lymphocytes # (Manual) 1.0 L Monocytes # (Manual) Eosinophils # (Manual) PT INR Fibrinogen dRVVT Confirm Interp Factor V Activity POC ABG pH POC ABG pCO2 POC ABG pO2 ABG pO2 ABG HCO3 ABG Base Excess ABG Hemoglobin Oxyhemoglobin Sodium 127 L Potassium Chloride 86.8 L Carbon Dioxide 20 L BUN 42 H Creatinine 3.5 H Glucose POC Glucose 65 L Lactic Acid Calcium 7.0 L Phosphorus Magnesium Direct Bilirubin AST ALT Alkaline Phosphatase Lactate Dehydrogenase Troponin T C-Reactive Protein Total Protein Albumin Prealbumin Triglycerides Cholesterol LDL Cholesterol Direct HDL Cholesterol Urine pH Urine WBC (Auto) Urine Creatinine Urine Total Protein Fluid Total Protein Vancomycin Trough Rheumatoid Factor Complement C4 Miscellaneous Test Crossmatch 10/01/16 10/01/16 10/02/16 17:39 23:32 00:59 WBC RBC Hgb Hct MCV MCH MCHC RDW Plt Count Lymph % (Auto) [place] % (Auto) Lymph # [place] # Baso # Seg Neutrophils % Seg Neuts % (Manual) Lymphocytes % (Manual) Monocytes % (Manual) Eosinophils % (Manual) Basophils % (Manual) Nucleated RBC % Seg Neutrophils # Seg Neutrophils # Man Lymphocytes # (Manual) Monocytes # (Manual) Eosinophils # (Manual) PT INR Fibrinogen dRVVT Confirm Interp Factor V Activity POC ABG pH POC ABG pCO2 POC ABG pO2 ABG pO2 ABG HCO3 ABG Base Excess ABG Hemoglobin Oxyhemoglobin Sodium Potassium Chloride Carbon Dioxide BUN Creatinine Glucose POC Glucose 107 H 52 L 145 H Lactic Acid Calcium Phosphorus Magnesium Direct Bilirubin AST ALT Alkaline Phosphatase Lactate Dehydrogenase Troponin T C-Reactive Protein Total Protein Albumin Prealbumin Triglycerides Cholesterol LDL Cholesterol Direct HDL Cholesterol Urine pH Urine WBC (Auto) Urine Creatinine Urine Total Protein Fluid Total Protein Vancomycin Trough Rheumatoid Factor Complement C4 Miscellaneous Test Crossmatch 10/02/16 10/02/16 10/02/16 10:30 10:50 10:50 WBC 14.7 H RBC 2.76 L Hgb 7.4 L Hct 23.6 L MCV MCH 27 L MCHC RDW 20.2 H Plt Count 79 L Lymph % (Auto) [place] % (Auto) Lymph # [place] # Baso # Seg Neutrophils % Seg Neuts % (Manual) 86.0 H Lymphocytes % (Manual) 6.0 L Monocytes % (Manual) Eosinophils % (Manual) Basophils % (Manual) Nucleated RBC % Seg Neutrophils # Seg Neutrophils # Man 12.6 H Lymphocytes # (Manual) 0.9 L Monocytes # (Manual) Eosinophils # (Manual) PT INR Fibrinogen dRVVT Confirm Interp Factor V Activity POC ABG pH 7.486 H POC ABG pCO2 30.1 L POC ABG pO2 108 H ABG pO2 ABG HCO3 ABG Base Excess ABG Hemoglobin Oxyhemoglobin Sodium 131 L Potassium 3.4 L Chloride 89.9 L Carbon Dioxide BUN 26 H Creatinine 2.6 H Glucose POC Glucose Lactic Acid Calcium 7.0 L Phosphorus Magnesium Direct Bilirubin AST ALT Alkaline Phosphatase Lactate Dehydrogenase Troponin T C-Reactive Protein Total Protein Albumin Prealbumin Triglycerides Cholesterol LDL Cholesterol Direct HDL Cholesterol Urine pH Urine WBC (Auto) Urine Creatinine Urine Total Protein Fluid Total Protein Vancomycin Trough Rheumatoid Factor Complement C4 Miscellaneous Test Crossmatch 10/02/16 10/03/16 10/03/16 23:45 00:45 05:10 WBC 12.9 H RBC 2.77 L Hgb 7.6 L Hct 23.7 L MCV MCH 27 L MCHC RDW 19.7 H Plt Count 89 L Lymph % (Auto) [place] % (Auto) Lymph # [place] # Baso # Seg Neutrophils % Seg Neuts % (Manual) Lymphocytes % (Manual) 8.0 L Monocytes % (Manual) Eosinophils % (Manual) Basophils % (Manual) Nucleated RBC % Seg Neutrophils # 11.9 H Seg Neutrophils # Man Lymphocytes # (Manual) 1.0 L Monocytes # (Manual) Eosinophils # (Manual) PT INR Fibrinogen dRVVT Confirm Interp Factor V Activity POC ABG pH POC ABG pCO2 POC ABG pO2 ABG pO2 ABG HCO3 ABG Base Excess ABG Hemoglobin Oxyhemoglobin Sodium Potassium Chloride Carbon Dioxide BUN Creatinine Glucose POC Glucose 55 L 199 H Lactic Acid Calcium Phosphorus Magnesium Direct Bilirubin AST ALT Alkaline Phosphatase Lactate Dehydrogenase Troponin T C-Reactive Protein Total Protein Albumin Prealbumin Triglycerides Cholesterol LDL Cholesterol Direct HDL Cholesterol Urine pH Urine WBC (Auto) Urine Creatinine Urine Total Protein Fluid Total Protein Vancomycin Trough Rheumatoid Factor Complement C4 Miscellaneous Test Crossmatch 10/03/16 10/03/16 10/03/16 05:10 12:14 13:18 WBC RBC Hgb Hct MCV MCH MCHC RDW Plt Count Lymph % (Auto) [place] % (Auto) Lymph # [place] # Baso # Seg Neutrophils % Seg Neuts % (Manual) Lymphocytes % (Manual) Monocytes % (Manual) Eosinophils % (Manual) Basophils % (Manual) Nucleated RBC % Seg Neutrophils # Seg Neutrophils # Man Lymphocytes # (Manual) Monocytes # (Manual) Eosinophils # (Manual) PT INR Fibrinogen dRVVT Confirm Interp Factor V Activity POC ABG pH POC ABG pCO2 POC ABG pO2 ABG pO2 ABG HCO3 ABG Base Excess ABG Hemoglobin Oxyhemoglobin Sodium 129 L Potassium 3.3 L Chloride 88.8 L Carbon Dioxide 20 L BUN 29 H Creatinine 2.8 H Glucose POC Glucose 68 L 127 H Lactic Acid Calcium 7.2 L Phosphorus Magnesium Direct Bilirubin AST ALT Alkaline Phosphatase Lactate Dehydrogenase Troponin T C-Reactive Protein Total Protein Albumin Prealbumin Triglycerides Cholesterol LDL Cholesterol Direct HDL Cholesterol Urine pH Urine WBC (Auto) Urine Creatinine Urine Total Protein Fluid Total Protein Vancomycin Trough Rheumatoid Factor Complement C4 Miscellaneous Test Crossmatch 10/03/16 10/03/16 10/03/16 14:42 18:21 19:09 WBC RBC Hgb Hct MCV MCH MCHC RDW Plt Count Lymph % (Auto) [place] % (Auto) Lymph # [place] # Baso # Seg Neutrophils % Seg Neuts % (Manual) Lymphocytes % (Manual) Monocytes % (Manual) Eosinophils % (Manual) Basophils % (Manual) Nucleated RBC % Seg Neutrophils # Seg Neutrophils # Man Lymphocytes # (Manual) Monocytes # (Manual) Eosinophils # (Manual) PT INR Fibrinogen dRVVT Confirm Interp Factor V Activity POC ABG pH 7.499 H POC ABG pCO2 28.4 L POC ABG pO2 44 L ABG pO2 ABG HCO3 ABG Base Excess ABG Hemoglobin Oxyhemoglobin Sodium Potassium Chloride Carbon Dioxide BUN Creatinine Glucose POC Glucose 64 L 205 H Lactic Acid Calcium Phosphorus Magnesium Direct Bilirubin AST ALT Alkaline Phosphatase Lactate Dehydrogenase Troponin T C-Reactive Protein Total Protein Albumin Prealbumin Triglycerides Cholesterol LDL Cholesterol Direct HDL Cholesterol Urine pH Urine WBC (Auto) Urine Creatinine Urine Total Protein Fluid Total Protein Vancomycin Trough Rheumatoid Factor Complement C4 Miscellaneous Test Crossmatch 10/03/16 10/04/16 10/04/16 23:33 04:18 06:30 WBC RBC 2.54 L Hgb 7.1 L Hct 21.7 L MCV MCH MCHC RDW 19.5 H Plt Count 76 L Lymph % (Auto) [place] % (Auto) Lymph # [place] # Baso # Seg Neutrophils % Seg Neuts % (Manual) 88.0 H Lymphocytes % (Manual) 6.0 L Monocytes % (Manual) Eosinophils % (Manual) Basophils % (Manual) Nucleated RBC % Seg Neutrophils # Seg Neutrophils # Man 8.8 H Lymphocytes # (Manual) 0.6 L Monocytes # (Manual) Eosinophils # (Manual) PT INR Fibrinogen dRVVT Confirm Interp Factor V Activity POC ABG pH 7.461 H POC ABG pCO2 33.6 L POC ABG pO2 211 H ABG pO2 ABG HCO3 ABG Base Excess ABG Hemoglobin Oxyhemoglobin Sodium Potassium Chloride Carbon Dioxide BUN Creatinine Glucose POC Glucose 136 H Lactic Acid Calcium Phosphorus Magnesium Direct Bilirubin AST ALT Alkaline Phosphatase Lactate Dehydrogenase Troponin T C-Reactive Protein Total Protein Albumin Prealbumin Triglycerides Cholesterol LDL Cholesterol Direct HDL Cholesterol Urine pH Urine WBC (Auto) Urine Creatinine Urine Total Protein Fluid Total Protein Vancomycin Trough Rheumatoid Factor Complement C4 Miscellaneous Test Crossmatch 10/04/16 10/04/16 10/04/16 06:30 11:45 17:54 WBC RBC Hgb Hct MCV MCH MCHC RDW Plt Count Lymph % (Auto) [place] % (Auto) Lymph # [place] # Baso # Seg Neutrophils % Seg Neuts % (Manual) Lymphocytes % (Manual) Monocytes % (Manual) Eosinophils % (Manual) Basophils % (Manual) Nucleated RBC % Seg Neutrophils # Seg Neutrophils # Man Lymphocytes # (Manual) Monocytes # (Manual) Eosinophils # (Manual) PT INR Fibrinogen dRVVT Confirm Interp Factor V Activity POC ABG pH POC ABG pCO2 POC ABG pO2 ABG pO2 ABG HCO3 ABG Base Excess ABG Hemoglobin Oxyhemoglobin Sodium 128 L Potassium Chloride 87.4 L Carbon Dioxide 20 L BUN 34 H Creatinine 2.9 H Glucose 127 H POC Glucose 158 H 160 H Lactic Acid Calcium 7.4 L Phosphorus Magnesium Direct Bilirubin AST ALT Alkaline Phosphatase Lactate Dehydrogenase Troponin T C-Reactive Protein Total Protein Albumin Prealbumin Triglycerides Cholesterol LDL Cholesterol Direct HDL Cholesterol Urine pH Urine WBC (Auto) Urine Creatinine Urine Total Protein Fluid Total Protein Vancomycin Trough Rheumatoid Factor Complement C4 Miscellaneous Test Crossmatch 10/04/16 10/05/16 10/05/16 23:25 04:30 05:00 WBC RBC 2.64 L Hgb 7.5 L Hct 22.6 L MCV MCH MCHC RDW 19.3 H Plt Count 80 L Lymph % (Auto) [place] % (Auto) Lymph # [place] # Baso # Seg Neutrophils % Seg Neuts % (Manual) Lymphocytes % (Manual) 12.0 L Monocytes % (Manual) Eosinophils % (Manual) Basophils % (Manual) Nucleated RBC % Seg Neutrophils # Seg Neutrophils # Man Lymphocytes # (Manual) Monocytes # (Manual) Eosinophils # (Manual) PT INR Fibrinogen dRVVT Confirm Interp Factor V Activity POC ABG pH 7.475 H POC ABG pCO2 33.3 L POC ABG pO2 140 H ABG pO2 ABG HCO3 ABG Base Excess ABG Hemoglobin Oxyhemoglobin Sodium Potassium Chloride Carbon Dioxide BUN Creatinine Glucose POC Glucose 141 H Lactic Acid Calcium Phosphorus Magnesium Direct Bilirubin AST ALT Alkaline Phosphatase Lactate Dehydrogenase Troponin T C-Reactive Protein Total Protein Albumin Prealbumin Triglycerides Cholesterol LDL Cholesterol Direct HDL Cholesterol Urine pH Urine WBC (Auto) Urine Creatinine Urine Total Protein Fluid Total Protein Vancomycin Trough Rheumatoid Factor Complement C4 Miscellaneous Test Crossmatch 10/05/16 10/05/16 10/05/16 05:00 05:09 12:58 WBC RBC Hgb Hct MCV MCH MCHC RDW Plt Count Lymph % (Auto) [place] % (Auto) Lymph # [place] # Baso # Seg Neutrophils % Seg Neuts % (Manual) Lymphocytes % (Manual) Monocytes % (Manual) Eosinophils % (Manual) Basophils % (Manual) Nucleated RBC % Seg Neutrophils # Seg Neutrophils # Man Lymphocytes # (Manual) Monocytes # (Manual) Eosinophils # (Manual) PT INR Fibrinogen dRVVT Confirm Interp Factor V Activity POC ABG pH POC ABG pCO2 POC ABG pO2 ABG pO2 ABG HCO3 ABG Base Excess ABG Hemoglobin Oxyhemoglobin Sodium 131 L Potassium Chloride 94.0 L Carbon Dioxide 20 L BUN 22 H Creatinine 2.0 H Glucose 123 H POC Glucose 166 H 179 H Lactic Acid Calcium 7.7 L Phosphorus 2.20 L D Magnesium Direct Bilirubin AST ALT Alkaline Phosphatase Lactate Dehydrogenase Troponin T C-Reactive Protein Total Protein Albumin Prealbumin Triglycerides Cholesterol LDL Cholesterol Direct HDL Cholesterol Urine pH Urine WBC (Auto) Urine Creatinine Urine Total Protein Fluid Total Protein Vancomycin Trough Rheumatoid Factor Complement C4 Miscellaneous Test Crossmatch 10/05/16 10/05/16 10/05/16 15:50 18:53 23:12 WBC RBC Hgb Hct MCV MCH MCHC RDW Plt Count Lymph % (Auto) [place] % (Auto) Lymph # [place] # Baso # Seg Neutrophils % Seg Neuts % (Manual) Lymphocytes % (Manual) Monocytes % (Manual) Eosinophils % (Manual) Basophils % (Manual) Nucleated RBC % Seg Neutrophils # Seg Neutrophils # Man Lymphocytes # (Manual) Monocytes # (Manual) Eosinophils # (Manual) PT INR Fibrinogen dRVVT Confirm Interp Factor V Activity POC ABG pH POC ABG pCO2 POC ABG pO2 ABG pO2 ABG HCO3 ABG Base Excess ABG Hemoglobin Oxyhemoglobin Sodium Potassium Chloride Carbon Dioxide BUN Creatinine Glucose POC Glucose 150 H 164 H Lactic Acid Calcium Phosphorus Magnesium Direct Bilirubin AST ALT Alkaline Phosphatase Lactate Dehydrogenase Troponin T C-Reactive Protein Total Protein Albumin Prealbumin Triglycerides Cholesterol LDL Cholesterol Direct HDL Cholesterol Urine pH Urine WBC (Auto) Urine Creatinine Urine Total Protein Fluid Total Protein Vancomycin Trough Rheumatoid Factor Complement C4 Miscellaneous Test Crossmatch See Detail 08/10/06/16 10/06/16 03:50 03:50 04:53 WBC RBC 3.00 L Hgb 8.6 L Hct 25.8 L MCV MCH MCHC RDW 17.9 H Plt Count 65 L Lymph % (Auto) [place] % (Auto) Lymph # [place] # Baso # Seg Neutrophils % Seg Neuts % (Manual) 30.0 L Lymphocytes % (Manual) 5.0 L Monocytes % (Manual) Eosinophils % (Manual) Basophils % (Manual) Nucleated RBC % Seg Neutrophils # Seg Neutrophils # Man Lymphocytes # (Manual) 0.4 L Monocytes # (Manual) Eosinophils # (Manual) PT INR Fibrinogen dRVVT Confirm Interp Factor V Activity POC ABG pH 7.310 L POC ABG pCO2 49.0 H POC ABG pO2 ABG pO2 ABG HCO3 ABG Base Excess ABG Hemoglobin Oxyhemoglobin Sodium 133 L Potassium Chloride 95.9 L Carbon Dioxide BUN 26 H Creatinine 2.0 H Glucose 116 H POC Glucose Lactic Acid Calcium 7.8 L Phosphorus Magnesium Direct Bilirubin AST ALT Alkaline Phosphatase Lactate Dehydrogenase Troponin T C-Reactive Protein Total Protein Albumin Prealbumin Triglycerides Cholesterol LDL Cholesterol Direct HDL Cholesterol Urine pH Urine WBC (Auto) Urine Creatinine Urine Total Protein Fluid Total Protein Vancomycin Trough Rheumatoid Factor Complement C4 Miscellaneous Test Crossmatch 10/06/16 10/06/16 10/06/16 05:23 11:52 18:34 WBC RBC Hgb Hct MCV MCH MCHC RDW Plt Count Lymph % (Auto) [place] % (Auto) Lymph # [place] # Baso # Seg Neutrophils % Seg Neuts % (Manual) Lymphocytes % (Manual) Monocytes % (Manual) Eosinophils % (Manual) Basophils % (Manual) Nucleated RBC % Seg Neutrophils # Seg Neutrophils # Man Lymphocytes # (Manual) Monocytes # (Manual) Eosinophils # (Manual) PT INR Fibrinogen dRVVT Confirm Interp Factor V Activity POC ABG pH POC ABG pCO2 POC ABG pO2 ABG pO2 ABG HCO3 ABG Base Excess ABG Hemoglobin Oxyhemoglobin Sodium Potassium Chloride Carbon Dioxide BUN Creatinine Glucose POC Glucose 126 H 116 H 129 H Lactic Acid Calcium Phosphorus Magnesium Direct Bilirubin AST ALT Alkaline Phosphatase Lactate Dehydrogenase Troponin T C-Reactive Protein Total Protein Albumin Prealbumin Triglycerides Cholesterol LDL Cholesterol Direct HDL Cholesterol Urine pH Urine WBC (Auto) Urine Creatinine Urine Total Protein Fluid Total Protein Vancomycin Trough Rheumatoid Factor Complement C4 Miscellaneous Test Crossmatch 10/07/16 10/07/1617 03:45 05:00 10:00 WBC 17.0 H RBC 2.68 L Hgb 7.3 L Hct 25.3 L MCV MCH 27 L MCHC 29 L RDW 19.6 H Plt Count 74 L Lymph % (Auto) [place] % (Auto) Lymph # [place] # Baso # Seg Neutrophils % Seg Neuts % (Manual) Lymphocytes % (Manual) 12.0 L Monocytes % (Manual) Eosinophils % (Manual) Basophils % (Manual) Nucleated RBC % 4.0 H Seg Neutrophils # Seg Neutrophils # Man 10.7 H Lymphocytes # (Manual) Monocytes # (Manual) Eosinophils # (Manual) PT INR Fibrinogen dRVVT Confirm Interp Factor V Activity POC ABG pH POC ABG pCO2 POC ABG pO2 ABG pO2 ABG HCO3 ABG Base Excess ABG Hemoglobin Oxyhemoglobin Sodium 130 L Potassium 3.2 L Chloride 93.9 L Carbon Dioxide 20 L BUN 44 H Creatinine 2.7 H Glucose 129 H POC Glucose Lactic Acid Calcium 7.4 L Phosphorus Magnesium Direct Bilirubin AST ALT 6 L Alkaline Phosphatase 195 H Lactate Dehydrogenase Troponin T C-Reactive Protein Total Protein 4.9 L Albumin 1.0 L Prealbumin Triglycerides Cholesterol LDL Cholesterol Direct HDL Cholesterol Urine pH Urine WBC (Auto) Urine Creatinine Urine Total Protein Fluid Total Protein Vancomycin Trough Rheumatoid Factor Complement C4 Miscellaneous Test Flexitest 1 H Crossmatch 10/07/16 10/07/16 10/07/16 10:00 11:24 18:10 WBC RBC Hgb Hct MCV MCH MCHC RDW Plt Count Lymph % (Auto) [place] % (Auto) Lymph # [place] # Baso # Seg Neutrophils % Seg Neuts % (Manual) Lymphocytes % (Manual) Monocytes % (Manual) Eosinophils % (Manual) Basophils % (Manual) Nucleated RBC % Seg Neutrophils # Seg Neutrophils # Man Lymphocytes # (Manual) Monocytes # (Manual) Eosinophils # (Manual) PT INR Fibrinogen dRVVT Confirm Interp Factor V Activity POC ABG pH POC ABG pCO2 POC ABG pO2 ABG pO2 ABG HCO3 ABG Base Excess ABG Hemoglobin Oxyhemoglobin Sodium Potassium Chloride Carbon Dioxide BUN Creatinine Glucose POC Glucose 116 H 130 H Lactic Acid Calcium Phosphorus Magnesium Direct Bilirubin AST ALT Alkaline Phosphatase Lactate Dehydrogenase Troponin T C-Reactive Protein 19.40 H Total Protein Albumin Prealbumin Triglycerides Cholesterol LDL Cholesterol Direct HDL Cholesterol Urine pH Urine WBC (Auto) Urine Creatinine Urine Total Protein Fluid Total Protein Vancomycin Trough Rheumatoid Factor Complement C4 Miscellaneous Test Crossmatch 10/07/16 10/08/16 10/08/16 18:30 00:00 04:00 WBC RBC Hgb Hct MCV MCH MCHC RDW Plt Count Lymph % (Auto) [place] % (Auto) Lymph # [place] # Baso # Seg Neutrophils % Seg Neuts % (Manual) Lymphocytes % (Manual) Monocytes % (Manual) Eosinophils % (Manual) Basophils % (Manual) Nucleated RBC % Seg Neutrophils # Seg Neutrophils # Man Lymphocytes # (Manual) Monocytes # (Manual) Eosinophils # (Manual) PT INR Fibrinogen dRVVT Confirm Interp Factor V Activity POC ABG pH POC ABG pCO2 POC ABG pO2 ABG pO2 ABG HCO3 ABG Base Excess ABG Hemoglobin Oxyhemoglobin Sodium 132 L Potassium 3.3 L Chloride 93.6 L Carbon Dioxide 17 L BUN 59 H Creatinine 2.7 H Glucose 121 H POC Glucose 122 H Lactic Acid Calcium 7.6 L Phosphorus Magnesium Direct Bilirubin AST ALT Alkaline Phosphatase Lactate Dehydrogenase Troponin T C-Reactive Protein Total Protein Albumin Prealbumin Triglycerides Cholesterol LDL Cholesterol Direct HDL Cholesterol Urine pH Urine WBC (Auto) > 182.0 H Urine Creatinine Urine Total Protein Fluid Total Protein Vancomycin Trough Rheumatoid Factor Complement C4 Miscellaneous Test Crossmatch 10/08/16 10/08/16 10/08/16 04:30 05:30 11:51 WBC RBC 5.15 H Hgb 14.4 H D Hct 44.5 H D MCV MCH MCHC RDW 19.5 H Plt Count 56 L Lymph % (Auto) [place] % (Auto) Lymph # [place] # Baso # Seg Neutrophils % Seg Neuts % (Manual) 24.0 L Lymphocytes % (Manual) 8.0 L Monocytes % (Manual) Eosinophils % (Manual) Basophils % (Manual) Nucleated RBC % 9.0 H Seg Neutrophils # Seg Neutrophils # Man Lymphocytes # (Manual) 0.7 L Monocytes # (Manual) Eosinophils # (Manual) PT INR Fibrinogen dRVVT Confirm Interp Factor V Activity POC ABG pH POC ABG pCO2 POC ABG pO2 ABG pO2 ABG HCO3 ABG Base Excess ABG Hemoglobin Oxyhemoglobin Sodium Potassium Chloride Carbon Dioxide BUN Creatinine Glucose POC Glucose 125 H 150 H Lactic Acid Calcium Phosphorus Magnesium Direct Bilirubin AST ALT Alkaline Phosphatase Lactate Dehydrogenase Troponin T C-Reactive Protein Total Protein Albumin Prealbumin Triglycerides Cholesterol LDL Cholesterol Direct HDL Cholesterol Urine pH Urine WBC (Auto) Urine Creatinine Urine Total Protein Fluid Total Protein Vancomycin Trough Rheumatoid Factor Complement C4 Miscellaneous Test Crossmatch 10/08/16 10/08/16 10/08/16 12:49 17:07 19:30 WBC RBC Hgb 7.1 L D Hct 22.4 L D MCV MCH MCHC RDW Plt Count Lymph % (Auto) [place] % (Auto) Lymph # [place] # Baso # Seg Neutrophils % Seg Neuts % (Manual) Lymphocytes % (Manual) Monocytes % (Manual) Eosinophils % (Manual) Basophils % (Manual) Nucleated RBC % Seg Neutrophils # Seg Neutrophils # Man Lymphocytes # (Manual) Monocytes # (Manual) Eosinophils # (Manual) PT INR Fibrinogen dRVVT Confirm Interp Factor V Activity POC ABG pH POC ABG pCO2 28.2 L POC ABG pO2 111 H ABG pO2 ABG HCO3 ABG Base Excess ABG Hemoglobin Oxyhemoglobin Sodium Potassium Chloride Carbon Dioxide BUN Creatinine Glucose POC Glucose 145 H Lactic Acid Calcium Phosphorus Magnesium Direct Bilirubin AST ALT Alkaline Phosphatase Lactate Dehydrogenase Troponin T C-Reactive Protein Total Protein Albumin Prealbumin Triglycerides Cholesterol LDL Cholesterol Direct HDL Cholesterol Urine pH Urine WBC (Auto) Urine Creatinine Urine Total Protein Fluid Total Protein Vancomycin Trough Rheumatoid Factor Complement C4 Miscellaneous Test Crossmatch 10/08/16 10/09/16 10/09/16 19:30 03:45 03:45 WBC 12.6 H RBC 2.36 L Hgb 6.7 L Hct 21.1 L MCV MCH MCHC RDW 19.5 H Plt Count 75 L Lymph % (Auto) [place] % (Auto) Lymph # [place] # Baso # Seg Neutrophils % Seg Neuts % (Manual) Lymphocytes % (Manual) Monocytes % (Manual) 10.0 H Eosinophils % (Manual) Basophils % (Manual) Nucleated RBC % 3.0 H Seg Neutrophils # Seg Neutrophils # Man Lymphocytes # (Manual) Monocytes # (Manual) 1.3 H Eosinophils # (Manual) PT 18.0 H INR 1.41 H Fibrinogen dRVVT Confirm Interp Factor V Activity POC ABG pH POC ABG pCO2 POC ABG pO2 ABG pO2 ABG HCO3 ABG Base Excess ABG Hemoglobin Oxyhemoglobin Sodium 135 L Potassium Chloride Carbon Dioxide 17 L BUN 81 H Creatinine 3.2 H Glucose 109 H POC Glucose Lactic Acid Calcium 7.4 L Phosphorus 4.60 H D Magnesium Direct Bilirubin AST ALT Alkaline Phosphatase Lactate Dehydrogenase Troponin T C-Reactive Protein Total Protein Albumin Prealbumin Triglycerides Cholesterol LDL Cholesterol Direct HDL Cholesterol Urine pH Urine WBC (Auto) Urine Creatinine Urine Total Protein Fluid Total Protein Vancomycin Trough Rheumatoid Factor Complement C4 Miscellaneous Test Crossmatch 10/09/16 10/09/16 10/09/16 03:45 05:14 07:20 WBC RBC Hgb Hct MCV MCH MCHC RDW Plt Count Lymph % (Auto) [place] % (Auto) Lymph # [place] # Baso # Seg Neutrophils % Seg Neuts % (Manual) Lymphocytes % (Manual) Monocytes % (Manual) Eosinophils % (Manual) Basophils % (Manual) Nucleated RBC % Seg Neutrophils # Seg Neutrophils # Man Lymphocytes # (Manual) Monocytes # (Manual) Eosinophils # (Manual) PT 19.0 H INR 1.51 H Fibrinogen dRVVT Confirm Interp Factor V Activity POC ABG pH POC ABG pCO2 POC ABG pO2 ABG pO2 ABG HCO3 ABG Base Excess ABG Hemoglobin Oxyhemoglobin Sodium Potassium Chloride Carbon Dioxide BUN Creatinine Glucose POC Glucose 151 H Lactic Acid Calcium Phosphorus Magnesium Direct Bilirubin AST ALT Alkaline Phosphatase Lactate Dehydrogenase Troponin T C-Reactive Protein Total Protein Albumin Prealbumin Triglycerides Cholesterol LDL Cholesterol Direct HDL Cholesterol Urine pH Urine WBC (Auto) Urine Creatinine Urine Total Protein Fluid Total Protein Vancomycin Trough Rheumatoid Factor Complement C4 Miscellaneous Test Crossmatch See Detail 10/09/16 10/09/16 10/09/16 11:46 16:20 16:43 WBC RBC Hgb 7.2 L Hct 22.2 L MCV MCH MCHC RDW Plt Count Lymph % (Auto) [place] % (Auto) Lymph # [place] # Baso # Seg Neutrophils % Seg Neuts % (Manual) Lymphocytes % (Manual) Monocytes % (Manual) Eosinophils % (Manual) Basophils % (Manual) Nucleated RBC % Seg Neutrophils # Seg Neutrophils # Man Lymphocytes # (Manual) Monocytes # (Manual) Eosinophils # (Manual) PT INR Fibrinogen dRVVT Confirm Interp Factor V Activity POC ABG pH POC ABG pCO2 POC ABG pO2 ABG pO2 ABG HCO3 ABG Base Excess ABG Hemoglobin Oxyhemoglobin Sodium Potassium Chloride Carbon Dioxide BUN Creatinine Glucose POC Glucose 133 H 141 H Lactic Acid Calcium Phosphorus Magnesium Direct Bilirubin AST ALT Alkaline Phosphatase Lactate Dehydrogenase Troponin T C-Reactive Protein Total Protein Albumin Prealbumin Triglycerides Cholesterol LDL Cholesterol Direct HDL Cholesterol Urine pH Urine WBC (Auto) Urine Creatinine Urine Total Protein Fluid Total Protein Vancomycin Trough Rheumatoid Factor Complement C4 Miscellaneous Test Crossmatch 10/10/16 10/10/16 10/10/16 05:00 05:00 11:19 WBC 18.5 H RBC 2.19 L Hgb 6.4 L Hct 19.6 L* MCV MCH MCHC RDW 19.3 H Plt Count 93 L Lymph % (Auto) [place] % (Auto) Lymph # [place] # Baso # Seg Neutrophils % Seg Neuts % (Manual) Lymphocytes % (Manual) 10.0 L Monocytes % (Manual) Eosinophils % (Manual) Basophils % (Manual) Nucleated RBC % 4.0 H Seg Neutrophils # Seg Neutrophils # Man 11.3 H Lymphocytes # (Manual) Monocytes # (Manual) Eosinophils # (Manual) PT INR Fibrinogen dRVVT Confirm Interp Factor V Activity POC ABG pH POC ABG pCO2 POC ABG pO2 ABG pO2 ABG HCO3 ABG Base Excess ABG Hemoglobin Oxyhemoglobin Sodium Potassium 5.7 H D Chloride Carbon Dioxide 16 L BUN 94 H Creatinine 3.1 H Glucose 131 H POC Glucose 153 H Lactic Acid Calcium 8.2 L Phosphorus 5.10 H Magnesium 2.40 H Direct Bilirubin 0.3 H AST ALT < 5 L Alkaline Phosphatase 319 H Lactate Dehydrogenase Troponin T C-Reactive Protein Total Protein 5.1 L Albumin 1.0 L Prealbumin Triglycerides Cholesterol LDL Cholesterol Direct HDL Cholesterol Urine pH Urine WBC (Auto) Urine Creatinine Urine Total Protein Fluid Total Protein Vancomycin Trough Rheumatoid Factor Complement C4 Miscellaneous Test Crossmatch 10/10/16 10/10/16 10/11/16 17:50 23:30 04:15 WBC RBC Hgb Hct MCV MCH MCHC RDW Plt Count Lymph % (Auto) [place] % (Auto) Lymph # [place] # Baso # Seg Neutrophils % Seg Neuts % (Manual) Lymphocytes % (Manual) Monocytes % (Manual) Eosinophils % (Manual) Basophils % (Manual) Nucleated RBC % Seg Neutrophils # Seg Neutrophils # Man Lymphocytes # (Manual) Monocytes # (Manual) Eosinophils # (Manual) PT INR Fibrinogen dRVVT Confirm Interp Factor V Activity POC ABG pH POC ABG pCO2 POC ABG pO2 ABG pO2 ABG HCO3 ABG Base Excess ABG Hemoglobin Oxyhemoglobin Sodium Potassium Chloride 96.4 L Carbon Dioxide 21 L BUN 57 H Creatinine 2.1 H Glucose 151 H POC Glucose 146 H 141 H Lactic Acid Calcium 8.3 L Phosphorus Magnesium Direct Bilirubin AST ALT Alkaline Phosphatase Lactate Dehydrogenase Troponin T C-Reactive Protein Total Protein Albumin Prealbumin Triglycerides Cholesterol LDL Cholesterol Direct HDL Cholesterol Urine pH Urine WBC (Auto) Urine Creatinine Urine Total Protein Fluid Total Protein Vancomycin Trough Rheumatoid Factor Complement C4 Miscellaneous Test Crossmatch 10/11/16 10/11/16 10/11/16 04:15 04:15 05:30 WBC 28.3 H RBC 3.12 L Hgb 9.3 L Hct 28.7 L D MCV MCH MCHC RDW 17.7 H Plt Count 128 L Lymph % (Auto) [place] % (Auto) Lymph # [place] # Baso # Seg Neutrophils % Seg Neuts % (Manual) Lymphocytes % (Manual) Monocytes % (Manual) Eosinophils % (Manual) Basophils % (Manual) Nucleated RBC % Seg Neutrophils # Seg Neutrophils # Man Lymphocytes # (Manual) Monocytes # (Manual) Eosinophils # (Manual) PT INR Fibrinogen dRVVT Confirm Interp Factor V Activity POC ABG pH POC ABG pCO2 POC ABG pO2 ABG pO2 ABG HCO3 ABG Base Excess ABG Hemoglobin Oxyhemoglobin Sodium Potassium Chloride Carbon Dioxide BUN Creatinine Glucose POC Glucose 167 H Lactic Acid Calcium Phosphorus Magnesium Direct Bilirubin AST ALT Alkaline Phosphatase Lactate Dehydrogenase Troponin T C-Reactive Protein 15.80 H Total Protein Albumin Prealbumin Triglycerides Cholesterol LDL Cholesterol Direct HDL Cholesterol Urine pH Urine WBC (Auto) Urine Creatinine Urine Total Protein Fluid Total Protein Vancomycin Trough Rheumatoid Factor Complement C4 Miscellaneous Test Crossmatch 10/11/16 10/11/16 10/11/16 11:40 15:49 23:57 WBC RBC Hgb Hct MCV MCH MCHC RDW Plt Count Lymph % (Auto) [place] % (Auto) Lymph # [place] # Baso # Seg Neutrophils % Seg Neuts % (Manual) Lymphocytes % (Manual) Monocytes % (Manual) Eosinophils % (Manual) Basophils % (Manual) Nucleated RBC % Seg Neutrophils # Seg Neutrophils # Man Lymphocytes # (Manual) Monocytes # (Manual) Eosinophils # (Manual) PT INR Fibrinogen dRVVT Confirm Interp Factor V Activity POC ABG pH POC ABG pCO2 POC ABG pO2 ABG pO2 ABG HCO3 ABG Base Excess ABG Hemoglobin Oxyhemoglobin Sodium Potassium Chloride Carbon Dioxide BUN Creatinine Glucose POC Glucose 139 H 168 H 161 H Lactic Acid Calcium Phosphorus Magnesium Direct Bilirubin AST ALT Alkaline Phosphatase Lactate Dehydrogenase Troponin T C-Reactive Protein Total Protein Albumin Prealbumin Triglycerides Cholesterol LDL Cholesterol Direct HDL Cholesterol Urine pH Urine WBC (Auto) Urine Creatinine Urine Total Protein Fluid Total Protein Vancomycin Trough Rheumatoid Factor Complement C4 Miscellaneous Test Crossmatch 10/12/16 10/12/16 10/12/16 04:40 04:40 05:44 WBC 22.5 H RBC 2.88 L Hgb 8.8 L Hct 26.8 L MCV MCH MCHC RDW 17.8 H Plt Count Lymph % (Auto) [place] % (Auto) Lymph # [place] # Baso # Seg Neutrophils % Seg Neuts % (Manual) Lymphocytes % (Manual) Monocytes % (Manual) Eosinophils % (Manual) Basophils % (Manual) Nucleated RBC % Seg Neutrophils # Seg Neutrophils # Man Lymphocytes # (Manual) Monocytes # (Manual) Eosinophils # (Manual) PT INR Fibrinogen dRVVT Confirm Interp Factor V Activity POC ABG pH POC ABG pCO2 POC ABG pO2 ABG pO2 ABG HCO3 ABG Base Excess ABG Hemoglobin Oxyhemoglobin Sodium 134 L Potassium Chloride 93.0 L Carbon Dioxide BUN 74 H Creatinine 2.5 H Glucose 137 H POC Glucose 158 H Lactic Acid Calcium 8.2 L Phosphorus Magnesium Direct Bilirubin AST ALT Alkaline Phosphatase Lactate Dehydrogenase Troponin T C-Reactive Protein Total Protein Albumin Prealbumin Triglycerides Cholesterol LDL Cholesterol Direct HDL Cholesterol Urine pH Urine WBC (Auto) Urine Creatinine Urine Total Protein Fluid Total Protein Vancomycin Trough Rheumatoid Factor Complement C4 Miscellaneous Test Crossmatch 10/12/16 10/12/16 10/12/16 12:27 18:18 23:46 WBC RBC Hgb Hct MCV MCH MCHC RDW Plt Count Lymph % (Auto) [place] % (Auto) Lymph # [place] # Baso # Seg Neutrophils % Seg Neuts % (Manual) Lymphocytes % (Manual) Monocytes % (Manual) Eosinophils % (Manual) Basophils % (Manual) Nucleated RBC % Seg Neutrophils # Seg Neutrophils # Man Lymphocytes # (Manual) Monocytes # (Manual) Eosinophils # (Manual) PT INR Fibrinogen dRVVT Confirm Interp Factor V Activity POC ABG pH POC ABG pCO2 POC ABG pO2 ABG pO2 ABG HCO3 ABG Base Excess ABG Hemoglobin Oxyhemoglobin Sodium Potassium Chloride Carbon Dioxide BUN Creatinine Glucose POC Glucose 153 H 140 H 150 H Lactic Acid Calcium Phosphorus Magnesium Direct Bilirubin AST ALT Alkaline Phosphatase Lactate Dehydrogenase Troponin T C-Reactive Protein Total Protein Albumin Prealbumin Triglycerides Cholesterol LDL Cholesterol Direct HDL Cholesterol Urine pH Urine WBC (Auto) Urine Creatinine Urine Total Protein Fluid Total Protein Vancomycin Trough Rheumatoid Factor Complement C4 Miscellaneous Test Crossmatch 10/13/16 10/13/16 10/13/16 06:22 09:20 12:29 WBC RBC Hgb Hct MCV MCH MCHC RDW Plt Count Lymph % (Auto) [place] % (Auto) Lymph # [place] # Baso # Seg Neutrophils % Seg Neuts % (Manual) Lymphocytes % (Manual) Monocytes % (Manual) Eosinophils % (Manual) Basophils % (Manual) Nucleated RBC % Seg Neutrophils # Seg Neutrophils # Man Lymphocytes # (Manual) Monocytes # (Manual) Eosinophils # (Manual) PT INR Fibrinogen dRVVT Confirm Interp Factor V Activity POC ABG pH POC ABG pCO2 POC ABG pO2 ABG pO2 ABG HCO3 ABG Base Excess ABG Hemoglobin Oxyhemoglobin Sodium Potassium Chloride Carbon Dioxide BUN Creatinine Glucose POC Glucose 165 H 193 H Lactic Acid Calcium Phosphorus Magnesium Direct Bilirubin AST ALT Alkaline Phosphatase Lactate Dehydrogenase Troponin T C-Reactive Protein Total Protein Albumin Prealbumin Triglycerides Cholesterol LDL Cholesterol Direct HDL Cholesterol Urine pH Urine WBC (Auto) Urine Creatinine Urine Total Protein Fluid Total Protein Vancomycin Trough Rheumatoid Factor Complement C4 Miscellaneous Test Flexitest 1 H Crossmatch 10/13/16 10/13/16 10/13/16 18:09 Unknown Unknown WBC 23.4 H RBC 2.83 L Hgb 8.7 L Hct 26.1 L MCV MCH MCHC RDW 18.1 H Plt Count Lymph % (Auto) [place] % (Auto) Lymph # [place] # Baso # Seg Neutrophils % Seg Neuts % (Manual) Lymphocytes % (Manual) Monocytes % (Manual) Eosinophils % (Manual) Basophils % (Manual) Nucleated RBC % Seg Neutrophils # Seg Neutrophils # Man Lymphocytes # (Manual) Monocytes # (Manual) Eosinophils # (Manual) PT INR Fibrinogen dRVVT Confirm Interp Factor V Activity POC ABG pH POC ABG pCO2 POC ABG pO2 ABG pO2 ABG HCO3 ABG Base Excess ABG Hemoglobin Oxyhemoglobin Sodium Potassium Chloride 95.8 L Carbon Dioxide BUN 82 H Creatinine 2.6 H Glucose 152 H POC Glucose 166 H Lactic Acid Calcium Phosphorus Magnesium Direct Bilirubin AST ALT Alkaline Phosphatase Lactate Dehydrogenase Troponin T C-Reactive Protein Total Protein Albumin Prealbumin Triglycerides Cholesterol LDL Cholesterol Direct HDL Cholesterol Urine pH Urine WBC (Auto) Urine Creatinine Urine Total Protein Fluid Total Protein Vancomycin Trough Rheumatoid Factor Complement C4 Miscellaneous Test Crossmatch 10/14/16 10/14/16 10/14/16 05:38 06:35 08:10 WBC 20.7 H RBC 2.81 L Hgb 8.4 L Hct 27.2 L MCV MCH MCHC RDW 19.4 H Plt Count Lymph % (Auto) [place] % (Auto) Lymph # [place] # Baso # Seg Neutrophils % Seg Neuts % (Manual) Lymphocytes % (Manual) Monocytes % (Manual) Eosinophils % (Manual) Basophils % (Manual) Nucleated RBC % Seg Neutrophils # Seg Neutrophils # Man Lymphocytes # (Manual) Monocytes # (Manual) Eosinophils # (Manual) PT INR Fibrinogen dRVVT Confirm Interp Factor V Activity POC ABG pH POC ABG pCO2 POC ABG pO2 ABG pO2 ABG HCO3 ABG Base Excess ABG Hemoglobin Oxyhemoglobin Sodium Potassium Chloride Carbon Dioxide BUN 58 H Creatinine 1.9 H Glucose 169 H POC Glucose 195 H Lactic Acid Calcium Phosphorus Magnesium Direct Bilirubin AST ALT Alkaline Phosphatase Lactate Dehydrogenase Troponin T C-Reactive Protein Total Protein Albumin Prealbumin Triglycerides Cholesterol LDL Cholesterol Direct HDL Cholesterol Urine pH Urine WBC (Auto) Urine Creatinine Urine Total Protein Fluid Total Protein Vancomycin Trough Rheumatoid Factor Complement C4 Miscellaneous Test Crossmatch 10/14/16 10/14/16 10/14/16 11:44 17:13 23:28 WBC RBC Hgb Hct MCV MCH MCHC RDW Plt Count Lymph % (Auto) [place] % (Auto) Lymph # [place] # Baso # Seg Neutrophils % Seg Neuts % (Manual) Lymphocytes % (Manual) Monocytes % (Manual) Eosinophils % (Manual) Basophils % (Manual) Nucleated RBC % Seg Neutrophils # Seg Neutrophils # Man Lymphocytes # (Manual) Monocytes # (Manual) Eosinophils # (Manual) PT INR Fibrinogen dRVVT Confirm Interp Factor V Activity POC ABG pH POC ABG pCO2 POC ABG pO2 ABG pO2 ABG HCO3 ABG Base Excess ABG Hemoglobin Oxyhemoglobin Sodium Potassium Chloride Carbon Dioxide BUN Creatinine Glucose POC Glucose 174 H 121 H 151 H Lactic Acid Calcium Phosphorus Magnesium Direct Bilirubin AST ALT Alkaline Phosphatase Lactate Dehydrogenase Troponin T C-Reactive Protein Total Protein Albumin Prealbumin Triglycerides Cholesterol LDL Cholesterol Direct HDL Cholesterol Urine pH Urine WBC (Auto) Urine Creatinine Urine Total Protein Fluid Total Protein Vancomycin Trough Rheumatoid Factor Complement C4 Miscellaneous Test Crossmatch 10/15/16 10/15/16 10/15/16 05:06 12:26 17:48 WBC RBC Hgb Hct MCV MCH MCHC RDW Plt Count Lymph % (Auto) [place] % (Auto) Lymph # [place] # Baso # Seg Neutrophils % Seg Neuts % (Manual) Lymphocytes % (Manual) Monocytes % (Manual) Eosinophils % (Manual) Basophils % (Manual) Nucleated RBC % Seg Neutrophils # Seg Neutrophils # Man Lymphocytes # (Manual) Monocytes # (Manual) Eosinophils # (Manual) PT INR Fibrinogen dRVVT Confirm Interp Factor V Activity POC ABG pH POC ABG pCO2 POC ABG pO2 ABG pO2 ABG HCO3 ABG Base Excess ABG Hemoglobin Oxyhemoglobin Sodium Potassium Chloride Carbon Dioxide BUN Creatinine Glucose POC Glucose 151 H 149 H 153 H Lactic Acid Calcium Phosphorus Magnesium Direct Bilirubin AST ALT Alkaline Phosphatase Lactate Dehydrogenase Troponin T C-Reactive Protein Total Protein Albumin Prealbumin Triglycerides Cholesterol LDL Cholesterol Direct HDL Cholesterol Urine pH Urine WBC (Auto) Urine Creatinine Urine Total Protein Fluid Total Protein Vancomycin Trough Rheumatoid Factor Complement C4 Miscellaneous Test Crossmatch 10/15/16 10/15/16 10/16/16 Unknown Unknown 00:02 WBC 23.4 H RBC 2.78 L Hgb 8.5 L Hct 25.7 L MCV MCH MCHC RDW 18.7 H Plt Count Lymph % (Auto) [place] % (Auto) Lymph # [place] # Baso # Seg Neutrophils % Seg Neuts % (Manual) Lymphocytes % (Manual) Monocytes % (Manual) Eosinophils % (Manual) Basophils % (Manual) Nucleated RBC % Seg Neutrophils # Seg Neutrophils # Man Lymphocytes # (Manual) Monocytes # (Manual) Eosinophils # (Manual) PT INR Fibrinogen dRVVT Confirm Interp Factor V Activity POC ABG pH POC ABG pCO2 POC ABG pO2 ABG pO2 ABG HCO3 ABG Base Excess ABG Hemoglobin Oxyhemoglobin Sodium Potassium Chloride Carbon Dioxide BUN 73 H Creatinine 2.3 H Glucose 120 H POC Glucose 137 H Lactic Acid Calcium Phosphorus Magnesium Direct Bilirubin AST ALT Alkaline Phosphatase Lactate Dehydrogenase Troponin T C-Reactive Protein Total Protein Albumin Prealbumin Triglycerides Cholesterol LDL Cholesterol Direct HDL Cholesterol Urine pH Urine WBC (Auto) Urine Creatinine Urine Total Protein Fluid Total Protein Vancomycin Trough Rheumatoid Factor Complement C4 Miscellaneous Test Crossmatch 10/16/16 10/16/16 10/16/16 05:44 06:25 06:25 WBC 22.5 H RBC 2.76 L Hgb 8.3 L Hct 25.2 L MCV MCH MCHC RDW 18.3 H Plt Count Lymph % (Auto) [place] % (Auto) Lymph # [place] # Baso # Seg Neutrophils % Seg Neuts % (Manual) Lymphocytes % (Manual) Monocytes % (Manual) Eosinophils % (Manual) Basophils % (Manual) Nucleated RBC % Seg Neutrophils # Seg Neutrophils # Man Lymphocytes # (Manual) Monocytes # (Manual) Eosinophils # (Manual) PT INR Fibrinogen dRVVT Confirm Interp Factor V Activity POC ABG pH POC ABG pCO2 POC ABG pO2 ABG pO2 ABG HCO3 ABG Base Excess ABG Hemoglobin Oxyhemoglobin Sodium Potassium Chloride Carbon Dioxide BUN 92 H Creatinine 3.0 H Glucose 138 H POC Glucose 110 H Lactic Acid Calcium Phosphorus Magnesium Direct Bilirubin AST ALT Alkaline Phosphatase Lactate Dehydrogenase Troponin T C-Reactive Protein Total Protein Albumin Prealbumin Triglycerides Cholesterol LDL Cholesterol Direct HDL Cholesterol Urine pH Urine WBC (Auto) Urine Creatinine Urine Total Protein Fluid Total Protein Vancomycin Trough Rheumatoid Factor Complement C4 Miscellaneous Test Crossmatch 10/16/16 10/16/16 10/16/16 11:27 11:48 17:36 WBC RBC Hgb Hct MCV MCH MCHC RDW Plt Count Lymph % (Auto) [place] % (Auto) Lymph # [place] # Baso # Seg Neutrophils % Seg Neuts % (Manual) Lymphocytes % (Manual) Monocytes % (Manual) Eosinophils % (Manual) Basophils % (Manual) Nucleated RBC % Seg Neutrophils # Seg Neutrophils # Man Lymphocytes # (Manual) Monocytes # (Manual) Eosinophils # (Manual) PT INR Fibrinogen dRVVT Confirm Interp Factor V Activity POC ABG pH 7.582 H POC ABG pCO2 27.4 L POC ABG pO2 110 H ABG pO2 ABG HCO3 ABG Base Excess ABG Hemoglobin Oxyhemoglobin Sodium Potassium Chloride Carbon Dioxide BUN Creatinine Glucose POC Glucose 121 H 133 H Lactic Acid Calcium Phosphorus Magnesium Direct Bilirubin AST ALT Alkaline Phosphatase Lactate Dehydrogenase Troponin T C-Reactive Protein Total Protein Albumin Prealbumin Triglycerides Cholesterol LDL Cholesterol Direct HDL Cholesterol Urine pH Urine WBC (Auto) Urine Creatinine Urine Total Protein Fluid Total Protein Vancomycin Trough Rheumatoid Factor Complement C4 Miscellaneous Test Crossmatch 10/16/16 10/17/16 10/17/16 20:48 04:24 04:24 WBC 21.4 H RBC 2.72 L Hgb 8.0 L Hct 25.2 L MCV MCH MCHC RDW 18.0 H Plt Count Lymph % (Auto) [place] % (Auto) Lymph # [place] # Baso # Seg Neutrophils % Seg Neuts % (Manual) Lymphocytes % (Manual) Monocytes % (Manual) Eosinophils % (Manual) Basophils % (Manual) Nucleated RBC % Seg Neutrophils # Seg Neutrophils # Man Lymphocytes # (Manual) Monocytes # (Manual) Eosinophils # (Manual) PT INR Fibrinogen dRVVT Confirm Interp Factor V Activity POC ABG pH 7.561 H POC ABG pCO2 24.4 L POC ABG pO2 77 L ABG pO2 ABG HCO3 ABG Base Excess ABG Hemoglobin Oxyhemoglobin Sodium 148 H Potassium Chloride Carbon Dioxide BUN 104 H Creatinine 3.0 H Glucose 149 H POC Glucose Lactic Acid Calcium Phosphorus Magnesium Direct Bilirubin AST ALT Alkaline Phosphatase 138 H Lactate Dehydrogenase Troponin T C-Reactive Protein Total Protein 6.2 L Albumin 1.5 L Prealbumin Triglycerides Cholesterol LDL Cholesterol Direct HDL Cholesterol Urine pH Urine WBC (Auto) Urine Creatinine Urine Total Protein Fluid Total Protein Vancomycin Trough Rheumatoid Factor Complement C4 Miscellaneous Test Crossmatch 10/17/16 10/17/16 10/17/16 06:02 12:17 17:14 WBC RBC Hgb Hct MCV MCH MCHC RDW Plt Count Lymph % (Auto) [place] % (Auto) Lymph # [place] # Baso # Seg Neutrophils % Seg Neuts % (Manual) Lymphocytes % (Manual) Monocytes % (Manual) Eosinophils % (Manual) Basophils % (Manual) Nucleated RBC % Seg Neutrophils # Seg Neutrophils # Man Lymphocytes # (Manual) Monocytes # (Manual) Eosinophils # (Manual) PT INR Fibrinogen dRVVT Confirm Interp Factor V Activity POC ABG pH POC ABG pCO2 POC ABG pO2 ABG pO2 ABG HCO3 ABG Base Excess ABG Hemoglobin Oxyhemoglobin Sodium Potassium Chloride Carbon Dioxide BUN Creatinine Glucose POC Glucose 170 H 167 H 126 H Lactic Acid Calcium Phosphorus Magnesium Direct Bilirubin AST ALT Alkaline Phosphatase Lactate Dehydrogenase Troponin T C-Reactive Protein Total Protein Albumin Prealbumin Triglycerides Cholesterol LDL Cholesterol Direct HDL Cholesterol Urine pH Urine WBC (Auto) Urine Creatinine Urine Total Protein Fluid Total Protein Vancomycin Trough Rheumatoid Factor Complement C4 Miscellaneous Test Crossmatch 10/17/16 10/18/16 10/18/16 23:17 04:00 04:00 WBC 20.7 H RBC 2.47 L Hgb 7.4 L Hct 22.9 L MCV MCH MCHC RDW 17.5 H Plt Count Lymph % (Auto) [place] % (Auto) Lymph # [place] # Baso # Seg Neutrophils % Seg Neuts % (Manual) Lymphocytes % (Manual) Monocytes % (Manual) Eosinophils % (Manual) Basophils % (Manual) Nucleated RBC % Seg Neutrophils # Seg Neutrophils # Man Lymphocytes # (Manual) Monocytes # (Manual) Eosinophils # (Manual) PT INR Fibrinogen dRVVT Confirm Interp Factor V Activity POC ABG pH POC ABG pCO2 POC ABG pO2 ABG pO2 ABG HCO3 ABG Base Excess ABG Hemoglobin Oxyhemoglobin Sodium 149 H Potassium Chloride 107.9 H Carbon Dioxide 20 L BUN 117 H Creatinine 3.2 H Glucose 119 H POC Glucose 121 H Lactic Acid Calcium Phosphorus Magnesium Direct Bilirubin AST ALT Alkaline Phosphatase Lactate Dehydrogenase Troponin T C-Reactive Protein Total Protein Albumin Prealbumin Triglycerides Cholesterol LDL Cholesterol Direct HDL Cholesterol Urine pH Urine WBC (Auto) Urine Creatinine Urine Total Protein Fluid Total Protein Vancomycin Trough Rheumatoid Factor Complement C4 Miscellaneous Test Crossmatch 10/18/16 10/18/16 10/18/16 05:23 10:46 17:30 WBC RBC Hgb Hct MCV MCH MCHC RDW Plt Count Lymph % (Auto) [place] % (Auto) Lymph # [place] # Baso # Seg Neutrophils % Seg Neuts % (Manual) Lymphocytes % (Manual) Monocytes % (Manual) Eosinophils % (Manual) Basophils % (Manual) Nucleated RBC % Seg Neutrophils # Seg Neutrophils # Man Lymphocytes # (Manual) Monocytes # (Manual) Eosinophils # (Manual) PT INR Fibrinogen dRVVT Confirm Interp Factor V Activity POC ABG pH POC ABG pCO2 POC ABG pO2 ABG pO2 ABG HCO3 ABG Base Excess ABG Hemoglobin Oxyhemoglobin Sodium Potassium Chloride Carbon Dioxide BUN Creatinine Glucose POC Glucose 119 H 155 H 124 H Lactic Acid Calcium Phosphorus Magnesium Direct Bilirubin AST ALT Alkaline Phosphatase Lactate Dehydrogenase Troponin T C-Reactive Protein Total Protein Albumin Prealbumin Triglycerides Cholesterol LDL Cholesterol Direct HDL Cholesterol Urine pH Urine WBC (Auto) Urine Creatinine Urine Total Protein Fluid Total Protein Vancomycin Trough Rheumatoid Factor Complement C4 Miscellaneous Test Crossmatch 10/19/16 10/19/16 10/19/16 04:00 04:00 05:25 WBC 17.4 H RBC 2.54 L Hgb 7.7 L Hct 23.6 L MCV MCH MCHC RDW 17.3 H Plt Count Lymph % (Auto) [place] % (Auto) Lymph # [place] # Baso # Seg Neutrophils % Seg Neuts % (Manual) Lymphocytes % (Manual) Monocytes % (Manual) Eosinophils % (Manual) Basophils % (Manual) Nucleated RBC % Seg Neutrophils # Seg Neutrophils # Man Lymphocytes # (Manual) Monocytes # (Manual) Eosinophils # (Manual) PT INR Fibrinogen dRVVT Confirm Interp Factor V Activity POC ABG pH POC ABG pCO2 POC ABG pO2 ABG pO2 ABG HCO3 ABG Base Excess ABG Hemoglobin Oxyhemoglobin Sodium Potassium Chloride Carbon Dioxide BUN 72 H Creatinine 2.1 H Glucose 116 H POC Glucose 119 H Lactic Acid Calcium Phosphorus Magnesium Direct Bilirubin AST ALT Alkaline Phosphatase Lactate Dehydrogenase Troponin T C-Reactive Protein Total Protein Albumin Prealbumin Triglycerides Cholesterol LDL Cholesterol Direct HDL Cholesterol Urine pH Urine WBC (Auto) Urine Creatinine Urine Total Protein Fluid Total Protein Vancomycin Trough Rheumatoid Factor Complement C4 Miscellaneous Test Crossmatch 10/19/16 10/19/16 10/20/16 11:46 23:59 06:00 WBC RBC Hgb Hct MCV MCH MCHC RDW Plt Count Lymph % (Auto) [place] % (Auto) Lymph # [place] # Baso # Seg Neutrophils % Seg Neuts % (Manual) Lymphocytes % (Manual) Monocytes % (Manual) Eosinophils % (Manual) Basophils % (Manual) Nucleated RBC % Seg Neutrophils # Seg Neutrophils # Man Lymphocytes # (Manual) Monocytes # (Manual) Eosinophils # (Manual) PT INR Fibrinogen dRVVT Confirm Interp Factor V Activity POC ABG pH POC ABG pCO2 POC ABG pO2 ABG pO2 ABG HCO3 ABG Base Excess ABG Hemoglobin Oxyhemoglobin Sodium Potassium Chloride Carbon Dioxide 17 L BUN 94 H Creatinine 2.7 H Glucose POC Glucose 116 H 117 H Lactic Acid Calcium Phosphorus Magnesium Direct Bilirubin AST ALT Alkaline Phosphatase Lactate Dehydrogenase Troponin T C-Reactive Protein Total Protein Albumin Prealbumin Triglycerides Cholesterol LDL Cholesterol Direct HDL Cholesterol Urine pH Urine WBC (Auto) Urine Creatinine Urine Total Protein Fluid Total Protein Vancomycin Trough Rheumatoid Factor Complement C4 Miscellaneous Test Crossmatch 10/20/16 10/20/16 10/20/16 06:00 11:49 16:00 WBC 19.7 H RBC 2.51 L Hgb 7.7 L Hct 23.5 L MCV MCH MCHC RDW 17.5 H Plt Count Lymph % (Auto) [place] % (Auto) Lymph # [place] # Baso # Seg Neutrophils % Seg Neuts % (Manual) Lymphocytes % (Manual) Monocytes % (Manual) Eosinophils % (Manual) Basophils % (Manual) Nucleated RBC % Seg Neutrophils # Seg Neutrophils # Man Lymphocytes # (Manual) Monocytes # (Manual) Eosinophils # (Manual) PT INR Fibrinogen dRVVT Confirm Interp Factor V Activity POC ABG pH POC ABG pCO2 POC ABG pO2 ABG pO2 ABG HCO3 ABG Base Excess ABG Hemoglobin Oxyhemoglobin Sodium Potassium Chloride Carbon Dioxide BUN Creatinine Glucose POC Glucose 117 H Lactic Acid Calcium Phosphorus Magnesium Direct Bilirubin AST ALT Alkaline Phosphatase Lactate Dehydrogenase Troponin T C-Reactive Protein Total Protein Albumin Prealbumin Triglycerides Cholesterol LDL Cholesterol Direct HDL Cholesterol Urine pH Urine WBC (Auto) Urine Creatinine Urine Total Protein Fluid Total Protein Vancomycin Trough Rheumatoid Factor Complement C4 Miscellaneous Test Flexitest 1 H Crossmatch 10/20/16 10/20/16 10/21/16 18:36 23:39 04:00 WBC RBC Hgb Hct MCV MCH MCHC RDW Plt Count Lymph % (Auto) [place] % (Auto) Lymph # [place] # Baso # Seg Neutrophils % Seg Neuts % (Manual) Lymphocytes % (Manual) Monocytes % (Manual) Eosinophils % (Manual) Basophils % (Manual) Nucleated RBC % Seg Neutrophils # Seg Neutrophils # Man Lymphocytes # (Manual) Monocytes # (Manual) Eosinophils # (Manual) PT INR Fibrinogen dRVVT Confirm Interp Factor V Activity POC ABG pH POC ABG pCO2 POC ABG pO2 ABG pO2 ABG HCO3 ABG Base Excess ABG Hemoglobin Oxyhemoglobin Sodium Potassium 5.4 H D Chloride Carbon Dioxide 15 L BUN 110 H Creatinine 3.0 H Glucose POC Glucose 127 H 114 H Lactic Acid Calcium Phosphorus Magnesium Direct Bilirubin AST ALT Alkaline Phosphatase Lactate Dehydrogenase Troponin T C-Reactive Protein Total Protein Albumin Prealbumin Triglycerides Cholesterol LDL Cholesterol Direct HDL Cholesterol Urine pH Urine WBC (Auto) Urine Creatinine Urine Total Protein Fluid Total Protein Vancomycin Trough Rheumatoid Factor Complement C4 Miscellaneous Test Crossmatch 10/21/16 10/21/16 10/22/16 05:54 23:46 05:18 WBC RBC Hgb Hct MCV MCH MCHC RDW Plt Count Lymph % (Auto) [place] % (Auto) Lymph # [place] # Baso # Seg Neutrophils % Seg Neuts % (Manual) Lymphocytes % (Manual) Monocytes % (Manual) Eosinophils % (Manual) Basophils % (Manual) Nucleated RBC % Seg Neutrophils # Seg Neutrophils # Man Lymphocytes # (Manual) Monocytes # (Manual) Eosinophils # (Manual) PT INR Fibrinogen dRVVT Confirm Interp Factor V Activity POC ABG pH POC ABG pCO2 POC ABG pO2 ABG pO2 ABG HCO3 ABG Base Excess ABG Hemoglobin Oxyhemoglobin Sodium Potassium Chloride Carbon Dioxide BUN Creatinine Glucose POC Glucose 119 H 108 H 109 H Lactic Acid Calcium Phosphorus Magnesium Direct Bilirubin AST ALT Alkaline Phosphatase Lactate Dehydrogenase Troponin T C-Reactive Protein Total Protein Albumin Prealbumin Triglycerides Cholesterol LDL Cholesterol Direct HDL Cholesterol Urine pH Urine WBC (Auto) Urine Creatinine Urine Total Protein Fluid Total Protein Vancomycin Trough Rheumatoid Factor Complement C4 Miscellaneous Test Crossmatch 10/22/16 10/22/16 10/22/16 06:40 06:40 06:40 WBC 14.0 H RBC 2.03 L Hgb 7.0 L Hct 20.5 L MCV 98 H MCH 34 H MCHC 35 H RDW 17.8 H Plt Count Lymph % (Auto) [place] % (Auto) 9.9 H Lymph # [place] # 1.4 H Baso # 0.2 H Seg Neutrophils % 72.0 H Seg Neuts % (Manual) Lymphocytes % (Manual) Monocytes % (Manual) Eosinophils % (Manual) Basophils % (Manual) Nucleated RBC % Seg Neutrophils # 10.0 H Seg Neutrophils # Man Lymphocytes # (Manual) Monocytes # (Manual) Eosinophils # (Manual) PT INR Fibrinogen dRVVT Confirm Interp Factor V Activity POC ABG pH POC ABG pCO2 POC ABG pO2 ABG pO2 ABG HCO3 ABG Base Excess ABG Hemoglobin Oxyhemoglobin Sodium 130 L D Potassium Chloride 92.4 L Carbon Dioxide 20 L BUN 50 H Creatinine 1.6 H Glucose 589 H* POC Glucose Lactic Acid Calcium 7.8 L D Phosphorus Magnesium 1.60 L Direct Bilirubin AST ALT Alkaline Phosphatase Lactate Dehydrogenase Troponin T C-Reactive Protein Total Protein Albumin Prealbumin Triglycerides Cholesterol LDL Cholesterol Direct HDL Cholesterol Urine pH Urine WBC (Auto) Urine Creatinine Urine Total Protein Fluid Total Protein Vancomycin Trough Rheumatoid Factor Complement C4 Miscellaneous Test Crossmatch 10/22/16 10/22/16 10/22/16 11:39 16:44 23:36 WBC RBC Hgb Hct MCV MCH MCHC RDW Plt Count Lymph % (Auto) [place] % (Auto) Lymph # [place] # Baso # Seg Neutrophils % Seg Neuts % (Manual) Lymphocytes % (Manual) Monocytes % (Manual) Eosinophils % (Manual) Basophils % (Manual) Nucleated RBC % Seg Neutrophils # Seg Neutrophils # Man Lymphocytes # (Manual) Monocytes # (Manual) Eosinophils # (Manual) PT INR Fibrinogen dRVVT Confirm Interp Factor V Activity POC ABG pH POC ABG pCO2 POC ABG pO2 ABG pO2 ABG HCO3 ABG Base Excess ABG Hemoglobin Oxyhemoglobin Sodium Potassium Chloride Carbon Dioxide BUN Creatinine Glucose POC Glucose 142 H 163 H 123 H Lactic Acid Calcium Phosphorus Magnesium Direct Bilirubin AST ALT Alkaline Phosphatase Lactate Dehydrogenase Troponin T C-Reactive Protein Total Protein Albumin Prealbumin Triglycerides Cholesterol LDL Cholesterol Direct HDL Cholesterol Urine pH Urine WBC (Auto) Urine Creatinine Urine Total Protein Fluid Total Protein Vancomycin Trough Rheumatoid Factor Complement C4 Miscellaneous Test Crossmatch 10/23/16 10/23/16 10/23/16 04:58 06:00 12:12 WBC RBC Hgb Hct MCV MCH MCHC RDW Plt Count Lymph % (Auto) [place] % (Auto) Lymph # [place] # Baso # Seg Neutrophils % Seg Neuts % (Manual) Lymphocytes % (Manual) Monocytes % (Manual) Eosinophils % (Manual) Basophils % (Manual) Nucleated RBC % Seg Neutrophils # Seg Neutrophils # Man Lymphocytes # (Manual) Monocytes # (Manual) Eosinophils # (Manual) PT INR Fibrinogen dRVVT Confirm Interp Factor V Activity POC ABG pH POC ABG pCO2 POC ABG pO2 ABG pO2 ABG HCO3 ABG Base Excess ABG Hemoglobin Oxyhemoglobin Sodium 133 L Potassium 3.5 L Chloride 96.1 L Carbon Dioxide 18 L BUN 76 H Creatinine 2.1 H Glucose POC Glucose 133 H 138 H Lactic Acid Calcium 8.3 L Phosphorus Magnesium Direct Bilirubin AST ALT Alkaline Phosphatase Lactate Dehydrogenase Troponin T C-Reactive Protein Total Protein Albumin Prealbumin Triglycerides Cholesterol LDL Cholesterol Direct HDL Cholesterol Urine pH Urine WBC (Auto) Urine Creatinine Urine Total Protein Fluid Total Protein Vancomycin Trough Rheumatoid Factor Complement C4 Miscellaneous Test Crossmatch 10/23/16 10/23/16 10/24/16 16:53 23:37 04:00 WBC RBC Hgb Hct MCV MCH MCHC RDW Plt Count Lymph % (Auto) [place] % (Auto) Lymph # [place] # Baso # Seg Neutrophils % Seg Neuts % (Manual) Lymphocytes % (Manual) Monocytes % (Manual) Eosinophils % (Manual) Basophils % (Manual) Nucleated RBC % Seg Neutrophils # Seg Neutrophils # Man Lymphocytes # (Manual) Monocytes # (Manual) Eosinophils # (Manual) PT INR Fibrinogen dRVVT Confirm Interp Factor V Activity POC ABG pH POC ABG pCO2 POC ABG pO2 ABG pO2 ABG HCO3 ABG Base Excess ABG Hemoglobin Oxyhemoglobin Sodium 131 L Potassium Chloride 94.5 L Carbon Dioxide 19 L BUN 97 H Creatinine 2.6 H Glucose 110 H POC Glucose 125 H 123 H Lactic Acid Calcium 8.3 L Phosphorus Magnesium Direct Bilirubin AST ALT Alkaline Phosphatase Lactate Dehydrogenase Troponin T C-Reactive Protein Total Protein Albumin Prealbumin Triglycerides Cholesterol LDL Cholesterol Direct HDL Cholesterol Urine pH Urine WBC (Auto) Urine Creatinine Urine Total Protein Fluid Total Protein Vancomycin Trough Rheumatoid Factor Complement C4 Miscellaneous Test Crossmatch 10/24/16 10/24/16 10/24/16 07:49 11:39 17:52 WBC RBC Hgb 6.0 L Hct 19.7 L* MCV MCH MCHC RDW Plt Count Lymph % (Auto) [place] % (Auto) Lymph # [place] # Baso # Seg Neutrophils % Seg Neuts % (Manual) Lymphocytes % (Manual) Monocytes % (Manual) Eosinophils % (Manual) Basophils % (Manual) Nucleated RBC % Seg Neutrophils # Seg Neutrophils # Man Lymphocytes # (Manual) Monocytes # (Manual) Eosinophils # (Manual) PT INR Fibrinogen dRVVT Confirm Interp Factor V Activity POC ABG pH POC ABG pCO2 POC ABG pO2 ABG pO2 ABG HCO3 ABG Base Excess ABG Hemoglobin Oxyhemoglobin Sodium Potassium Chloride Carbon Dioxide BUN Creatinine Glucose POC Glucose 106 H 158 H Lactic Acid Calcium Phosphorus Magnesium Direct Bilirubin AST ALT Alkaline Phosphatase Lactate Dehydrogenase Troponin T C-Reactive Protein Total Protein Albumin Prealbumin Triglycerides Cholesterol LDL Cholesterol Direct HDL Cholesterol Urine pH Urine WBC (Auto) Urine Creatinine Urine Total Protein Fluid Total Protein Vancomycin Trough Rheumatoid Factor Complement C4 Miscellaneous Test Crossmatch 10/24/16 10/24/16 10/24/16 20:00 22:27 Unknown WBC RBC Hgb 9.4 L D Hct 27.5 L D MCV MCH MCHC RDW Plt Count Lymph % (Auto) [place] % (Auto) Lymph # [place] # Baso # Seg Neutrophils % Seg Neuts % (Manual) Lymphocytes % (Manual) Monocytes % (Manual) Eosinophils % (Manual) Basophils % (Manual) Nucleated RBC % Seg Neutrophils # Seg Neutrophils # Man Lymphocytes # (Manual) Monocytes # (Manual) Eosinophils # (Manual) PT INR Fibrinogen dRVVT Confirm Interp Factor V Activity POC ABG pH POC ABG pCO2 POC ABG pO2 ABG pO2 ABG HCO3 ABG Base Excess ABG Hemoglobin Oxyhemoglobin Sodium Potassium Chloride Carbon Dioxide BUN Creatinine Glucose POC Glucose 125 H Lactic Acid Calcium Phosphorus Magnesium Direct Bilirubin AST ALT Alkaline Phosphatase Lactate Dehydrogenase Troponin T C-Reactive Protein Total Protein Albumin Prealbumin Triglycerides Cholesterol LDL Cholesterol Direct HDL Cholesterol Urine pH Urine WBC (Auto) Urine Creatinine Urine Total Protein Fluid Total Protein Vancomycin Trough Rheumatoid Factor Complement C4 Miscellaneous Test Crossmatch See Detail 10/25/16 10/25/16 10/25/16 04:00 04:00 04:00 WBC 14.2 H RBC 2.98 L Hgb 9.0 L Hct 26.2 L MCV MCH MCHC RDW 16.6 H Plt Count Lymph % (Auto) [place] % (Auto) 10.7 H Lymph # [place] # 1.5 H Baso # Seg Neutrophils % 73.6 H Seg Neuts % (Manual) Lymphocytes % (Manual) Monocytes % (Manual) Eosinophils % (Manual) Basophils % (Manual) Nucleated RBC % Seg Neutrophils # 10.5 H Seg Neutrophils # Man Lymphocytes # (Manual) Monocytes # (Manual) Eosinophils # (Manual) PT INR Fibrinogen dRVVT Confirm Interp Factor V Activity POC ABG pH POC ABG pCO2 POC ABG pO2 ABG pO2 ABG HCO3 ABG Base Excess ABG Hemoglobin Oxyhemoglobin Sodium 132 L Potassium Chloride 94.7 L Carbon Dioxide BUN 51 H Creatinine 1.6 H Glucose 130 H POC Glucose Lactic Acid Calcium 8.3 L Phosphorus 1.60 L D Magnesium Direct Bilirubin AST ALT Alkaline Phosphatase Lactate Dehydrogenase Troponin T C-Reactive Protein Total Protein Albumin Prealbumin Triglycerides Cholesterol LDL Cholesterol Direct HDL Cholesterol Urine pH Urine WBC (Auto) Urine Creatinine Urine Total Protein Fluid Total Protein Vancomycin Trough Rheumatoid Factor Complement C4 Miscellaneous Test Crossmatch 10/25/16 10/25/16 10/25/16 04:32 11:48 17:22 WBC RBC Hgb Hct MCV MCH MCHC RDW Plt Count Lymph % (Auto) [place] % (Auto) Lymph # [place] # Baso # Seg Neutrophils % Seg Neuts % (Manual) Lymphocytes % (Manual) Monocytes % (Manual) Eosinophils % (Manual) Basophils % (Manual) Nucleated RBC % Seg Neutrophils # Seg Neutrophils # Man Lymphocytes # (Manual) Monocytes # (Manual) Eosinophils # (Manual) PT INR Fibrinogen dRVVT Confirm Interp Factor V Activity POC ABG pH POC ABG pCO2 POC ABG pO2 ABG pO2 ABG HCO3 ABG Base Excess ABG Hemoglobin Oxyhemoglobin Sodium Potassium Chloride Carbon Dioxide BUN Creatinine Glucose POC Glucose 124 H 171 H 120 H Lactic Acid Calcium Phosphorus Magnesium Direct Bilirubin AST ALT Alkaline Phosphatase Lactate Dehydrogenase Troponin T C-Reactive Protein Total Protein Albumin Prealbumin Triglycerides Cholesterol LDL Cholesterol Direct HDL Cholesterol Urine pH Urine WBC (Auto) Urine Creatinine Urine Total Protein Fluid Total Protein Vancomycin Trough Rheumatoid Factor Complement C4 Miscellaneous Test Crossmatch 10/26/16 10/26/16 10/26/16 04:54 07:06 07:06 WBC 16.9 H RBC 3.06 L Hgb 9.1 L Hct 26.9 L MCV MCH MCHC RDW 16.9 H Plt Count Lymph % (Auto) [place] % (Auto) Lymph # [place] # Baso # Seg Neutrophils % Seg Neuts % (Manual) 71.0 H Lymphocytes % (Manual) 5.0 L Monocytes % (Manual) 12.0 H Eosinophils % (Manual) Basophils % (Manual) Nucleated RBC % Seg Neutrophils # Seg Neutrophils # Man 12.0 H Lymphocytes # (Manual) 0.8 L Monocytes # (Manual) 2.0 H Eosinophils # (Manual) PT INR Fibrinogen dRVVT Confirm Interp Factor V Activity POC ABG pH POC ABG pCO2 POC ABG pO2 ABG pO2 ABG HCO3 ABG Base Excess ABG Hemoglobin Oxyhemoglobin Sodium 135 L Potassium Chloride 97.1 L Carbon Dioxide BUN 73 H Creatinine 2.2 H Glucose 117 H POC Glucose 123 H Lactic Acid Calcium Phosphorus 1.70 L Magnesium Direct Bilirubin AST ALT Alkaline Phosphatase Lactate Dehydrogenase Troponin T C-Reactive Protein Total Protein Albumin Prealbumin Triglycerides Cholesterol LDL Cholesterol Direct HDL Cholesterol Urine pH Urine WBC (Auto) Urine Creatinine Urine Total Protein Fluid Total Protein Vancomycin Trough Rheumatoid Factor Complement C4 Miscellaneous Test Crossmatch 10/26/16 10/26/16 10/26/16 12:12 17:29 23:42 WBC RBC Hgb Hct MCV MCH MCHC RDW Plt Count Lymph % (Auto) [place] % (Auto) Lymph # [place] # Baso # Seg Neutrophils % Seg Neuts % (Manual) Lymphocytes % (Manual) Monocytes % (Manual) Eosinophils % (Manual) Basophils % (Manual) Nucleated RBC % Seg Neutrophils # Seg Neutrophils # Man Lymphocytes # (Manual) Monocytes # (Manual) Eosinophils # (Manual) PT INR Fibrinogen dRVVT Confirm Interp Factor V Activity POC ABG pH POC ABG pCO2 POC ABG pO2 ABG pO2 ABG HCO3 ABG Base Excess ABG Hemoglobin Oxyhemoglobin Sodium Potassium Chloride Carbon Dioxide BUN Creatinine Glucose POC Glucose 126 H 161 H 118 H Lactic Acid Calcium Phosphorus Magnesium Direct Bilirubin AST ALT Alkaline Phosphatase Lactate Dehydrogenase Troponin T C-Reactive Protein Total Protein Albumin Prealbumin Triglycerides Cholesterol LDL Cholesterol Direct HDL Cholesterol Urine pH Urine WBC (Auto) Urine Creatinine Urine Total Protein Fluid Total Protein Vancomycin Trough Rheumatoid Factor Complement C4 Miscellaneous Test Crossmatch 10/27/16 10/27/16 10/27/16 05:03 06:30 06:30 WBC 13.9 H RBC 3.09 L Hgb 9.2 L Hct 27.5 L MCV MCH MCHC RDW 17.0 H Plt Count Lymph % (Auto) [place] % (Auto) Lymph # [place] # Baso # Seg Neutrophils % Seg Neuts % (Manual) 78.0 H Lymphocytes % (Manual) Monocytes % (Manual) Eosinophils % (Manual) Basophils % (Manual) Nucleated RBC % 2.0 H Seg Neutrophils # Seg Neutrophils # Man 10.8 H Lymphocytes # (Manual) Monocytes # (Manual) 1.0 H Eosinophils # (Manual) PT INR Fibrinogen dRVVT Confirm Interp Factor V Activity POC ABG pH POC ABG pCO2 POC ABG pO2 ABG pO2 ABG HCO3 ABG Base Excess ABG Hemoglobin Oxyhemoglobin Sodium Potassium Chloride Carbon Dioxide BUN 40 H Creatinine 1.5 H Glucose 135 H POC Glucose 107 H Lactic Acid Calcium 8.3 L Phosphorus 1.30 L D Magnesium Direct Bilirubin AST ALT Alkaline Phosphatase Lactate Dehydrogenase Troponin T C-Reactive Protein Total Protein Albumin Prealbumin Triglycerides Cholesterol LDL Cholesterol Direct HDL Cholesterol Urine pH Urine WBC (Auto) Urine Creatinine Urine Total Protein Fluid Total Protein Vancomycin Trough Rheumatoid Factor Complement C4 Miscellaneous Test Crossmatch 10/27/16 10/27/16 10/27/16 13:27 18:07 23:40 WBC RBC Hgb Hct MCV MCH MCHC RDW Plt Count Lymph % (Auto) [place] % (Auto) Lymph # [place] # Baso # Seg Neutrophils % Seg Neuts % (Manual) Lymphocytes % (Manual) Monocytes % (Manual) Eosinophils % (Manual) Basophils % (Manual) Nucleated RBC % Seg Neutrophils # Seg Neutrophils # Man Lymphocytes # (Manual) Monocytes # (Manual) Eosinophils # (Manual) PT INR Fibrinogen dRVVT Confirm Interp Factor V Activity POC ABG pH POC ABG pCO2 POC ABG pO2 ABG pO2 ABG HCO3 ABG Base Excess ABG Hemoglobin Oxyhemoglobin Sodium Potassium Chloride Carbon Dioxide BUN Creatinine Glucose POC Glucose 117 H 121 H 118 H Lactic Acid Calcium Phosphorus Magnesium Direct Bilirubin AST ALT Alkaline Phosphatase Lactate Dehydrogenase Troponin T C-Reactive Protein Total Protein Albumin Prealbumin Triglycerides Cholesterol LDL Cholesterol Direct HDL Cholesterol Urine pH Urine WBC (Auto) Urine Creatinine Urine Total Protein Fluid Total Protein Vancomycin Trough Rheumatoid Factor Complement C4 Miscellaneous Test Crossmatch 10/28/16 10/28/16 10/28/16 05:48 06:45 06:45 WBC 14.7 H RBC 3.05 L Hgb 9.0 L Hct 26.9 L MCV MCH MCHC RDW 16.8 H Plt Count Lymph % (Auto) 8.2 L [place] % (Auto) 8.4 H Lymph # [place] # 1.2 H Baso # Seg Neutrophils % 81.9 H Seg Neuts % (Manual) Lymphocytes % (Manual) Monocytes % (Manual) Eosinophils % (Manual) Basophils % (Manual) Nucleated RBC % Seg Neutrophils # 12.1 H Seg Neutrophils # Man Lymphocytes # (Manual) Monocytes # (Manual) Eosinophils # (Manual) PT INR Fibrinogen dRVVT Confirm Interp Factor V Activity POC ABG pH POC ABG pCO2 POC ABG pO2 ABG pO2 ABG HCO3 ABG Base Excess ABG Hemoglobin Oxyhemoglobin Sodium Potassium Chloride Carbon Dioxide BUN 60 H Creatinine 1.9 H Glucose 120 H POC Glucose 114 H Lactic Acid Calcium Phosphorus Magnesium Direct Bilirubin AST ALT Alkaline Phosphatase Lactate Dehydrogenase Troponin T C-Reactive Protein Total Protein Albumin Prealbumin Triglycerides Cholesterol LDL Cholesterol Direct HDL Cholesterol Urine pH Urine WBC (Auto) Urine Creatinine Urine Total Protein Fluid Total Protein Vancomycin Trough Rheumatoid Factor Complement C4 Miscellaneous Test Crossmatch 10/28/16 10/28/16 10/29/16 17:08 23:50 05:10 WBC RBC Hgb Hct MCV MCH MCHC RDW Plt Count Lymph % (Auto) [place] % (Auto) Lymph # [place] # Baso # Seg Neutrophils % Seg Neuts % (Manual) Lymphocytes % (Manual) Monocytes % (Manual) Eosinophils % (Manual) Basophils % (Manual) Nucleated RBC % Seg Neutrophils # Seg Neutrophils # Man Lymphocytes # (Manual) Monocytes # (Manual) Eosinophils # (Manual) PT INR Fibrinogen dRVVT Confirm Interp Factor V Activity POC ABG pH POC ABG pCO2 POC ABG pO2 ABG pO2 ABG HCO3 ABG Base Excess ABG Hemoglobin Oxyhemoglobin Sodium Potassium Chloride Carbon Dioxide BUN Creatinine Glucose POC Glucose 109 H 110 H 124 H Lactic Acid Calcium Phosphorus Magnesium Direct Bilirubin AST ALT Alkaline Phosphatase Lactate Dehydrogenase Troponin T C-Reactive Protein Total Protein Albumin Prealbumin Triglycerides Cholesterol LDL Cholesterol Direct HDL Cholesterol Urine pH Urine WBC (Auto) Urine Creatinine Urine Total Protein Fluid Total Protein Vancomycin Trough Rheumatoid Factor Complement C4 Miscellaneous Test Crossmatch 10/29/16 10/29/16 10/29/16 07:45 07:45 12:19 WBC 14.7 H RBC 3.15 L Hgb 9.3 L Hct 28.9 L MCV MCH MCHC RDW 17.0 H Plt Count Lymph % (Auto) 11.9 L [place] % (Auto) 8.6 H Lymph # [place] # 1.3 H Baso # Seg Neutrophils % 78.1 H Seg Neuts % (Manual) Lymphocytes % (Manual) Monocytes % (Manual) Eosinophils % (Manual) Basophils % (Manual) Nucleated RBC % Seg Neutrophils # 11.4 H Seg Neutrophils # Man Lymphocytes # (Manual) Monocytes # (Manual) Eosinophils # (Manual) PT INR Fibrinogen dRVVT Confirm Interp Factor V Activity POC ABG pH POC ABG pCO2 POC ABG pO2 ABG pO2 ABG HCO3 ABG Base Excess ABG Hemoglobin Oxyhemoglobin Sodium Potassium 5.1 H Chloride Carbon Dioxide 19 L BUN 78 H Creatinine 2.2 H Glucose 116 H POC Glucose 118 H Lactic Acid Calcium Phosphorus Magnesium Direct Bilirubin AST ALT Alkaline Phosphatase Lactate Dehydrogenase Troponin T C-Reactive Protein Total Protein Albumin Prealbumin Triglycerides Cholesterol LDL Cholesterol Direct HDL Cholesterol Urine pH Urine WBC (Auto) Urine Creatinine Urine Total Protein Fluid Total Protein Vancomycin Trough Rheumatoid Factor Complement C4 Miscellaneous Test Crossmatch 10/29/16 10/30/16 10/30/16 17:49 01:52 03:28 WBC RBC Hgb Hct MCV MCH MCHC RDW Plt Count Lymph % (Auto) [place] % (Auto) Lymph # [place] # Baso # Seg Neutrophils % Seg Neuts % (Manual) Lymphocytes % (Manual) Monocytes % (Manual) Eosinophils % (Manual) Basophils % (Manual) Nucleated RBC % Seg Neutrophils # Seg Neutrophils # Man Lymphocytes # (Manual) Monocytes # (Manual) Eosinophils # (Manual) PT INR Fibrinogen dRVVT Confirm Interp Factor V Activity POC ABG pH POC ABG pCO2 POC ABG pO2 ABG pO2 ABG HCO3 ABG Base Excess ABG Hemoglobin Oxyhemoglobin Sodium Potassium 5.4 H Chloride 97.5 L Carbon Dioxide 19 L BUN 90 H Creatinine 2.5 H Glucose POC Glucose 120 H 129 H Lactic Acid Calcium Phosphorus 5.20 H Magnesium Direct Bilirubin AST ALT Alkaline Phosphatase Lactate Dehydrogenase Troponin T C-Reactive Protein Total Protein Albumin Prealbumin Triglycerides Cholesterol LDL Cholesterol Direct HDL Cholesterol Urine pH Urine WBC (Auto) Urine Creatinine Urine Total Protein Fluid Total Protein Vancomycin Trough Rheumatoid Factor Complement C4 Miscellaneous Test Crossmatch 10/30/16 10/30/16 10/30/16 03:28 08:19 08:19 WBC 11.6 H 15.9 H RBC 2.75 L 2.82 L Hgb 7.9 L 8.3 L Hct 24.2 L 25.2 L MCV MCH MCHC RDW 16.7 H 17.2 H Plt Count Lymph % (Auto) [place] % (Auto) 9.8 H Lymph # [place] # 1.1 H Baso # Seg Neutrophils % 74.2 H Seg Neuts % (Manual) Lymphocytes % (Manual) Monocytes % (Manual) Eosinophils % (Manual) Basophils % (Manual) Nucleated RBC % Seg Neutrophils # 8.6 H Seg Neutrophils # Man Lymphocytes # (Manual) Monocytes # (Manual) Eosinophils # (Manual) PT INR Fibrinogen dRVVT Confirm Interp Factor V Activity POC ABG pH POC ABG pCO2 POC ABG pO2 ABG pO2 ABG HCO3 ABG Base Excess ABG Hemoglobin Oxyhemoglobin Sodium Potassium 5.3 H Chloride 97.4 L Carbon Dioxide 19 L BUN 93 H Creatinine 2.6 H Glucose POC Glucose Lactic Acid Calcium Phosphorus Magnesium Direct Bilirubin AST ALT Alkaline Phosphatase Lactate Dehydrogenase Troponin T C-Reactive Protein Total Protein Albumin Prealbumin Triglycerides Cholesterol LDL Cholesterol Direct HDL Cholesterol Urine pH Urine WBC (Auto) Urine Creatinine Urine Total Protein Fluid Total Protein Vancomycin Trough Rheumatoid Factor Complement C4 Miscellaneous Test Crossmatch 10/30/16 10/30/16 10/31/16 17:11 23:56 00:40 WBC RBC Hgb Hct MCV MCH MCHC RDW Plt Count Lymph % (Auto) [place] % (Auto) Lymph # [place] # Baso # Seg Neutrophils % Seg Neuts % (Manual) Lymphocytes % (Manual) Monocytes % (Manual) Eosinophils % (Manual) Basophils % (Manual) Nucleated RBC % Seg Neutrophils # Seg Neutrophils # Man Lymphocytes # (Manual) Monocytes # (Manual) Eosinophils # (Manual) PT INR Fibrinogen dRVVT Confirm Interp Factor V Activity POC ABG pH POC ABG pCO2 POC ABG pO2 ABG pO2 ABG HCO3 ABG Base Excess ABG Hemoglobin Oxyhemoglobin Sodium Potassium Chloride Carbon Dioxide BUN Creatinine Glucose POC Glucose 106 H 117 H 120 H Lactic Acid Calcium Phosphorus Magnesium Direct Bilirubin AST ALT Alkaline Phosphatase Lactate Dehydrogenase Troponin T C-Reactive Protein Total Protein Albumin Prealbumin Triglycerides Cholesterol LDL Cholesterol Direct HDL Cholesterol Urine pH Urine WBC (Auto) Urine Creatinine Urine Total Protein Fluid Total Protein Vancomycin Trough Rheumatoid Factor Complement C4 Miscellaneous Test Crossmatch 10/31/16 10/31/16 10/31/16 05:43 07:15 07:15 WBC 12.1 H RBC 2.63 L Hgb 7.7 L Hct 23.3 L MCV MCH MCHC RDW 16.7 H Plt Count Lymph % (Auto) 11.7 L [place] % (Auto) 7.7 H Lymph # [place] # 0.9 H Baso # Seg Neutrophils % 78.0 H Seg Neuts % (Manual) Lymphocytes % (Manual) Monocytes % (Manual) Eosinophils % (Manual) Basophils % (Manual) Nucleated RBC % Seg Neutrophils # 9.4 H Seg Neutrophils # Man Lymphocytes # (Manual) Monocytes # (Manual) Eosinophils # (Manual) PT INR Fibrinogen dRVVT Confirm Interp Factor V Activity POC ABG pH POC ABG pCO2 POC ABG pO2 ABG pO2 ABG HCO3 ABG Base Excess ABG Hemoglobin Oxyhemoglobin Sodium Potassium Chloride 96.4 L Carbon Dioxide 21 L BUN 99 H Creatinine 2.6 H Glucose 144 H POC Glucose 125 H Lactic Acid Calcium Phosphorus 4.80 H Magnesium Direct Bilirubin AST ALT Alkaline Phosphatase Lactate Dehydrogenase Troponin T C-Reactive Protein Total Protein Albumin Prealbumin Triglycerides Cholesterol LDL Cholesterol Direct HDL Cholesterol Urine pH Urine WBC (Auto) Urine Creatinine Urine Total Protein Fluid Total Protein Vancomycin Trough Rheumatoid Factor Complement C4 Miscellaneous Test Crossmatch 10/31/16 10/31/16 11/01/16 11:46 18:34 00:20 WBC RBC Hgb Hct MCV MCH MCHC RDW Plt Count Lymph % (Auto) [place] % (Auto) Lymph # [place] # Baso # Seg Neutrophils % Seg Neuts % (Manual) Lymphocytes % (Manual) Monocytes % (Manual) Eosinophils % (Manual) Basophils % (Manual) Nucleated RBC % Seg Neutrophils # Seg Neutrophils # Man Lymphocytes # (Manual) Monocytes # (Manual) Eosinophils # (Manual) PT INR Fibrinogen dRVVT Confirm Interp Factor V Activity POC ABG pH POC ABG pCO2 POC ABG pO2 ABG pO2 ABG HCO3 ABG Base Excess ABG Hemoglobin Oxyhemoglobin Sodium Potassium Chloride Carbon Dioxide BUN Creatinine Glucose POC Glucose 159 H 140 H 132 H Lactic Acid Calcium Phosphorus Magnesium Direct Bilirubin AST ALT Alkaline Phosphatase Lactate Dehydrogenase Troponin T C-Reactive Protein Total Protein Albumin Prealbumin Triglycerides Cholesterol LDL Cholesterol Direct HDL Cholesterol Urine pH Urine WBC (Auto) Urine Creatinine Urine Total Protein Fluid Total Protein Vancomycin Trough Rheumatoid Factor Complement C4 Miscellaneous Test Crossmatch 11/01/16 11/01/16 11/01/16 04:55 04:55 06:11 WBC 11.2 H RBC 2.68 L Hgb 7.5 L Hct 23.7 L MCV MCH MCHC RDW 16.1 H Plt Count Lymph % (Auto) [place] % (Auto) 9.8 H Lymph # [place] # 1.1 H Baso # Seg Neutrophils % 70.8 H Seg Neuts % (Manual) Lymphocytes % (Manual) Monocytes % (Manual) Eosinophils % (Manual) Basophils % (Manual) Nucleated RBC % Seg Neutrophils # 7.9 H Seg Neutrophils # Man Lymphocytes # (Manual) Monocytes # (Manual) Eosinophils # (Manual) PT INR Fibrinogen dRVVT Confirm Interp Factor V Activity POC ABG pH POC ABG pCO2 POC ABG pO2 ABG pO2 ABG HCO3 ABG Base Excess ABG Hemoglobin Oxyhemoglobin Sodium Potassium 3.3 L D Chloride Carbon Dioxide BUN 61 H Creatinine 1.9 H Glucose 114 H POC Glucose 115 H Lactic Acid Calcium Phosphorus 1.80 L D Magnesium Direct Bilirubin AST ALT Alkaline Phosphatase Lactate Dehydrogenase Troponin T C-Reactive Protein Total Protein Albumin Prealbumin Triglycerides Cholesterol LDL Cholesterol Direct HDL Cholesterol Urine pH Urine WBC (Auto) Urine Creatinine Urine Total Protein Fluid Total Protein Vancomycin Trough Rheumatoid Factor Complement C4 Miscellaneous Test Crossmatch 11/01/16 11/01/16 11/01/16 12:29 18:23 23:58 WBC RBC Hgb Hct MCV MCH MCHC RDW Plt Count Lymph % (Auto) [place] % (Auto) Lymph # [place] # Baso # Seg Neutrophils % Seg Neuts % (Manual) Lymphocytes % (Manual) Monocytes % (Manual) Eosinophils % (Manual) Basophils % (Manual) Nucleated RBC % Seg Neutrophils # Seg Neutrophils # Man Lymphocytes # (Manual) Monocytes # (Manual) Eosinophils # (Manual) PT INR Fibrinogen dRVVT Confirm Interp Factor V Activity POC ABG pH POC ABG pCO2 POC ABG pO2 ABG pO2 ABG HCO3 ABG Base Excess ABG Hemoglobin Oxyhemoglobin Sodium Potassium Chloride Carbon Dioxide BUN Creatinine Glucose POC Glucose 142 H 143 H 128 H Lactic Acid Calcium Phosphorus Magnesium Direct Bilirubin AST ALT Alkaline Phosphatase Lactate Dehydrogenase Troponin T C-Reactive Protein Total Protein Albumin Prealbumin Triglycerides Cholesterol LDL Cholesterol Direct HDL Cholesterol Urine pH Urine WBC (Auto) Urine Creatinine Urine Total Protein Fluid Total Protein Vancomycin Trough Rheumatoid Factor Complement C4 Miscellaneous Test Crossmatch 11/02/16 11/02/16 11/02/16 04:16 05:29 11:58 WBC RBC Hgb Hct MCV MCH MCHC RDW Plt Count Lymph % (Auto) [place] % (Auto) Lymph # [place] # Baso # Seg Neutrophils % Seg Neuts % (Manual) Lymphocytes % (Manual) Monocytes % (Manual) Eosinophils % (Manual) Basophils % (Manual) Nucleated RBC % Seg Neutrophils # Seg Neutrophils # Man Lymphocytes # (Manual) Monocytes # (Manual) Eosinophils # (Manual) PT INR Fibrinogen dRVVT Confirm Interp Factor V Activity POC ABG pH POC ABG pCO2 POC ABG pO2 ABG pO2 ABG HCO3 ABG Base Excess ABG Hemoglobin Oxyhemoglobin Sodium Potassium 3.1 L Chloride Carbon Dioxide BUN 73 H Creatinine 2.3 H Glucose 112 H POC Glucose 135 H 149 H Lactic Acid Calcium Phosphorus Magnesium Direct Bilirubin AST ALT Alkaline Phosphatase Lactate Dehydrogenase Troponin T C-Reactive Protein Total Protein Albumin Prealbumin Triglycerides Cholesterol LDL Cholesterol Direct HDL Cholesterol Urine pH Urine WBC (Auto) Urine Creatinine Urine Total Protein Fluid Total Protein Vancomycin Trough Rheumatoid Factor Complement C4 Miscellaneous Test Crossmatch 11/02/16 11/02/16 11/03/16 17:42 22:54 06:00 WBC RBC Hgb Hct MCV MCH MCHC RDW Plt Count Lymph % (Auto) [place] % (Auto) Lymph # [place] # Baso # Seg Neutrophils % Seg Neuts % (Manual) Lymphocytes % (Manual) Monocytes % (Manual) Eosinophils % (Manual) Basophils % (Manual) Nucleated RBC % Seg Neutrophils # Seg Neutrophils # Man Lymphocytes # (Manual) Monocytes # (Manual) Eosinophils # (Manual) PT INR Fibrinogen dRVVT Confirm Interp Factor V Activity POC ABG pH POC ABG pCO2 POC ABG pO2 ABG pO2 ABG HCO3 ABG Base Excess ABG Hemoglobin Oxyhemoglobin Sodium Potassium Chloride 96.7 L Carbon Dioxide BUN 41 H Creatinine 1.5 H Glucose 145 H POC Glucose 182 H 115 H Lactic Acid Calcium Phosphorus 1.60 L D Magnesium 1.50 L Direct Bilirubin AST ALT Alkaline Phosphatase Lactate Dehydrogenase Troponin T C-Reactive Protein Total Protein Albumin Prealbumin Triglycerides Cholesterol LDL Cholesterol Direct HDL Cholesterol Urine pH Urine WBC (Auto) Urine Creatinine Urine Total Protein Fluid Total Protein Vancomycin Trough Rheumatoid Factor Complement C4 Miscellaneous Test Crossmatch 11/03/16 11/03/16 11/03/16 11:53 17:45 23:37 WBC RBC Hgb Hct MCV MCH MCHC RDW Plt Count Lymph % (Auto) [place] % (Auto) Lymph # [place] # Baso # Seg Neutrophils % Seg Neuts % (Manual) Lymphocytes % (Manual) Monocytes % (Manual) Eosinophils % (Manual) Basophils % (Manual) Nucleated RBC % Seg Neutrophils # Seg Neutrophils # Man Lymphocytes # (Manual) Monocytes # (Manual) Eosinophils # (Manual) PT INR Fibrinogen dRVVT Confirm Interp Factor V Activity POC ABG pH POC ABG pCO2 POC ABG pO2 ABG pO2 ABG HCO3 ABG Base Excess ABG Hemoglobin Oxyhemoglobin Sodium Potassium Chloride Carbon Dioxide BUN Creatinine Glucose POC Glucose 131 H 134 H 113 H Lactic Acid Calcium Phosphorus Magnesium Direct Bilirubin AST ALT Alkaline Phosphatase Lactate Dehydrogenase Troponin T C-Reactive Protein Total Protein Albumin Prealbumin Triglycerides Cholesterol LDL Cholesterol Direct HDL Cholesterol Urine pH Urine WBC (Auto) Urine Creatinine Urine Total Protein Fluid Total Protein Vancomycin Trough Rheumatoid Factor Complement C4 Miscellaneous Test Crossmatch 11/04/16 11/04/16 11/04/16 05:41 06:00 12:10 WBC RBC Hgb Hct MCV MCH MCHC RDW Plt Count Lymph % (Auto) [place] % (Auto) Lymph # [place] # Baso # Seg Neutrophils % Seg Neuts % (Manual) Lymphocytes % (Manual) Monocytes % (Manual) Eosinophils % (Manual) Basophils % (Manual) Nucleated RBC % Seg Neutrophils # Seg Neutrophils # Man Lymphocytes # (Manual) Monocytes # (Manual) Eosinophils # (Manual) PT INR Fibrinogen dRVVT Confirm Interp Factor V Activity POC ABG pH POC ABG pCO2 POC ABG pO2 ABG pO2 ABG HCO3 ABG Base Excess ABG Hemoglobin Oxyhemoglobin Sodium Potassium Chloride 96.7 L Carbon Dioxide BUN 52 H Creatinine 1.9 H Glucose 126 H POC Glucose 137 H 191 H Lactic Acid Calcium Phosphorus Magnesium Direct Bilirubin AST ALT Alkaline Phosphatase Lactate Dehydrogenase Troponin T C-Reactive Protein Total Protein Albumin Prealbumin Triglycerides Cholesterol LDL Cholesterol Direct HDL Cholesterol Urine pH Urine WBC (Auto) Urine Creatinine Urine Total Protein Fluid Total Protein Vancomycin Trough Rheumatoid Factor Complement C4 Miscellaneous Test Crossmatch 11/04/16 11/05/16 11/05/16 22:57 03:10 05:10 WBC RBC Hgb Hct MCV MCH MCHC RDW Plt Count Lymph % (Auto) [place] % (Auto) Lymph # [place] # Baso # Seg Neutrophils % Seg Neuts % (Manual) Lymphocytes % (Manual) Monocytes % (Manual) Eosinophils % (Manual) Basophils % (Manual) Nucleated RBC % Seg Neutrophils # Seg Neutrophils # Man Lymphocytes # (Manual) Monocytes # (Manual) Eosinophils # (Manual) PT INR Fibrinogen dRVVT Confirm Interp Factor V Activity POC ABG pH POC ABG pCO2 POC ABG pO2 ABG pO2 ABG HCO3 ABG Base Excess ABG Hemoglobin Oxyhemoglobin Sodium 136 L Potassium Chloride 97.2 L Carbon Dioxide BUN 32 H Creatinine 1.3 H Glucose 123 H POC Glucose 125 H 108 H Lactic Acid Calcium 7.8 L Phosphorus Magnesium Direct Bilirubin AST ALT Alkaline Phosphatase Lactate Dehydrogenase Troponin T C-Reactive Protein Total Protein Albumin Prealbumin Triglycerides Cholesterol LDL Cholesterol Direct HDL Cholesterol Urine pH Urine WBC (Auto) Urine Creatinine Urine Total Protein Fluid Total Protein Vancomycin Trough Rheumatoid Factor Complement C4 Miscellaneous Test Crossmatch 11/05/16 11/05/16 11/05/16 12:23 13:09 13:25 WBC RBC Hgb Hct MCV MCH MCHC RDW Plt Count Lymph % (Auto) [place] % (Auto) Lymph # [place] # Baso # Seg Neutrophils % Seg Neuts % (Manual) Lymphocytes % (Manual) Monocytes % (Manual) Eosinophils % (Manual) Basophils % (Manual) Nucleated RBC % Seg Neutrophils # Seg Neutrophils # Man Lymphocytes # (Manual) Monocytes # (Manual) Eosinophils # (Manual) PT INR Fibrinogen dRVVT Confirm Interp Factor V Activity POC ABG pH POC ABG pCO2 POC ABG pO2 ABG pO2 ABG HCO3 ABG Base Excess ABG Hemoglobin Oxyhemoglobin Sodium Potassium Chloride Carbon Dioxide BUN Creatinine Glucose POC Glucose 124 H Lactic Acid Calcium Phosphorus Magnesium Direct Bilirubin AST ALT Alkaline Phosphatase Lactate Dehydrogenase Troponin T C-Reactive Protein 11.40 H Total Protein Albumin Prealbumin Triglycerides Cholesterol LDL Cholesterol Direct HDL Cholesterol Urine pH 9.0 H Urine WBC (Auto) Urine Creatinine Urine Total Protein Fluid Total Protein Vancomycin Trough Rheumatoid Factor Complement C4 Miscellaneous Test Crossmatch 11/05/16 11/05/16 11/05/16 13:25 17:54 23:42 WBC RBC Hgb Hct MCV MCH MCHC RDW Plt Count Lymph % (Auto) [place] % (Auto) Lymph # [place] # Baso # Seg Neutrophils % Seg Neuts % (Manual) Lymphocytes % (Manual) Monocytes % (Manual) Eosinophils % (Manual) Basophils % (Manual) Nucleated RBC % Seg Neutrophils # Seg Neutrophils # Man Lymphocytes # (Manual) Monocytes # (Manual) Eosinophils # (Manual) PT INR Fibrinogen dRVVT Confirm Interp Factor V Activity POC ABG pH POC ABG pCO2 POC ABG pO2 ABG pO2 ABG HCO3 ABG Base Excess ABG Hemoglobin Oxyhemoglobin Sodium Potassium Chloride Carbon Dioxide BUN Creatinine Glucose POC Glucose 114 H 134 H Lactic Acid Calcium Phosphorus Magnesium Direct Bilirubin AST ALT Alkaline Phosphatase Lactate Dehydrogenase Troponin T C-Reactive Protein Total Protein Albumin Prealbumin Triglycerides Cholesterol LDL Cholesterol Direct HDL Cholesterol Urine pH Urine WBC (Auto) Urine Creatinine Urine Total Protein Fluid Total Protein Vancomycin Trough Rheumatoid Factor Complement C4 Miscellaneous Test Flexitest 1 H Crossmatch 11/06/16 11/06/16 11/06/16 04:56 06:25 06:25 WBC RBC 2.50 L Hgb 7.3 L Hct 22.5 L MCV MCH MCHC RDW 16.9 H Plt Count Lymph % (Auto) [place] % (Auto) 10.5 H Lymph # [place] # 1.1 H Baso # Seg Neutrophils % Seg Neuts % (Manual) Lymphocytes % (Manual) Monocytes % (Manual) Eosinophils % (Manual) Basophils % (Manual) Nucleated RBC % Seg Neutrophils # Seg Neutrophils # Man Lymphocytes # (Manual) Monocytes # (Manual) Eosinophils # (Manual) PT INR Fibrinogen dRVVT Confirm Interp Factor V Activity POC ABG pH POC ABG pCO2 POC ABG pO2 ABG pO2 ABG HCO3 ABG Base Excess ABG Hemoglobin Oxyhemoglobin Sodium Potassium 5.1 H Chloride 95.9 L Carbon Dioxide BUN 52 H Creatinine 1.8 H Glucose 117 H POC Glucose 120 H Lactic Acid Calcium Phosphorus Magnesium Direct Bilirubin AST 103 H ALT 77 H Alkaline Phosphatase 285 H Lactate Dehydrogenase Troponin T C-Reactive Protein Total Protein 6.2 L Albumin 1.8 L Prealbumin 0.180 L Triglycerides Cholesterol LDL Cholesterol Direct HDL Cholesterol Urine pH Urine WBC (Auto) Urine Creatinine Urine Total Protein Fluid Total Protein Vancomycin Trough Rheumatoid Factor Complement C4 Miscellaneous Test Crossmatch 11/06/16 11/06/16 11/06/16 11:56 17:14 23:52 WBC RBC Hgb Hct MCV MCH MCHC RDW Plt Count Lymph % (Auto) [place] % (Auto) Lymph # [place] # Baso # Seg Neutrophils % Seg Neuts % (Manual) Lymphocytes % (Manual) Monocytes % (Manual) Eosinophils % (Manual) Basophils % (Manual) Nucleated RBC % Seg Neutrophils # Seg Neutrophils # Man Lymphocytes # (Manual) Monocytes # (Manual) Eosinophils # (Manual) PT INR Fibrinogen dRVVT Confirm Interp Factor V Activity POC ABG pH POC ABG pCO2 POC ABG pO2 ABG pO2 ABG HCO3 ABG Base Excess ABG Hemoglobin Oxyhemoglobin Sodium Potassium Chloride Carbon Dioxide BUN Creatinine Glucose POC Glucose 141 H 125 H 130 H Lactic Acid Calcium Phosphorus Magnesium Direct Bilirubin AST ALT Alkaline Phosphatase Lactate Dehydrogenase Troponin T C-Reactive Protein Total Protein Albumin Prealbumin Triglycerides Cholesterol LDL Cholesterol Direct HDL Cholesterol Urine pH Urine WBC (Auto) Urine Creatinine Urine Total Protein Fluid Total Protein Vancomycin Trough Rheumatoid Factor Complement C4 Miscellaneous Test Crossmatch 11/07/16 11/07/16 11/07/16 06:30 06:30 09:37 WBC RBC 2.18 L Hgb 6.3 L Hct 19.7 L* MCV MCH MCHC RDW 16.8 H Plt Count Lymph % (Auto) [place] % (Auto) 10.0 H Lymph # [place] # 1.0 H Baso # Seg Neutrophils % Seg Neuts % (Manual) Lymphocytes % (Manual) Monocytes % (Manual) Eosinophils % (Manual) Basophils % (Manual) Nucleated RBC % Seg Neutrophils # Seg Neutrophils # Man Lymphocytes # (Manual) Monocytes # (Manual) Eosinophils # (Manual) PT INR Fibrinogen dRVVT Confirm Interp Factor V Activity POC ABG pH POC ABG pCO2 POC ABG pO2 ABG pO2 ABG HCO3 ABG Base Excess ABG Hemoglobin Oxyhemoglobin Sodium 135 L Potassium Chloride 95.6 L Carbon Dioxide BUN 70 H Creatinine 2.0 H Glucose 126 H POC Glucose Lactic Acid Calcium Phosphorus Magnesium Direct Bilirubin AST ALT Alkaline Phosphatase Lactate Dehydrogenase Troponin T C-Reactive Protein Total Protein Albumin Prealbumin Triglycerides Cholesterol LDL Cholesterol Direct HDL Cholesterol Urine pH Urine WBC (Auto) Urine Creatinine Urine Total Protein Fluid Total Protein Vancomycin Trough Rheumatoid Factor Complement C4 Miscellaneous Test Crossmatch See Detail 11/07/16 11/07/16 11/07/16 12:52 18:51 21:26 WBC RBC Hgb Hct MCV MCH MCHC RDW Plt Count Lymph % (Auto) [place] % (Auto) Lymph # [place] # Baso # Seg Neutrophils % Seg Neuts % (Manual) Lymphocytes % (Manual) Monocytes % (Manual) Eosinophils % (Manual) Basophils % (Manual) Nucleated RBC % Seg Neutrophils # Seg Neutrophils # Man Lymphocytes # (Manual) Monocytes # (Manual) Eosinophils # (Manual) PT INR Fibrinogen dRVVT Confirm Interp Factor V Activity POC ABG pH 7.523 H POC ABG pCO2 34.6 L POC ABG pO2 53 L ABG pO2 ABG HCO3 ABG Base Excess ABG Hemoglobin Oxyhemoglobin Sodium Potassium Chloride Carbon Dioxide BUN Creatinine Glucose POC Glucose 142 H 155 H Lactic Acid Calcium Phosphorus Magnesium Direct Bilirubin AST ALT Alkaline Phosphatase Lactate Dehydrogenase Troponin T C-Reactive Protein Total Protein Albumin Prealbumin Triglycerides Cholesterol LDL Cholesterol Direct HDL Cholesterol Urine pH Urine WBC (Auto) Urine Creatinine Urine Total Protein Fluid Total Protein Vancomycin Trough Rheumatoid Factor Complement C4 Miscellaneous Test Crossmatch 11/07/16 11/08/16 11/08/16 21:34 13:03 23:37 WBC RBC 2.63 L Hgb 7.7 L Hct 22.7 L MCV MCH MCHC RDW 17.0 H Plt Count Lymph % (Auto) [place] % (Auto) Lymph # [place] # Baso # Seg Neutrophils % Seg Neuts % (Manual) Lymphocytes % (Manual) Monocytes % (Manual) Eosinophils % (Manual) Basophils % (Manual) Nucleated RBC % Seg Neutrophils # Seg Neutrophils # Man Lymphocytes # (Manual) Monocytes # (Manual) Eosinophils # (Manual) PT INR Fibrinogen dRVVT Confirm Interp Factor V Activity POC ABG pH 7.478 H POC ABG pCO2 34.0 L POC ABG pO2 50 L ABG pO2 ABG HCO3 ABG Base Excess ABG Hemoglobin Oxyhemoglobin Sodium Potassium Chloride Carbon Dioxide BUN Creatinine Glucose POC Glucose 113 H Lactic Acid Calcium Phosphorus Magnesium Direct Bilirubin AST ALT Alkaline Phosphatase Lactate Dehydrogenase Troponin T C-Reactive Protein Total Protein Albumin Prealbumin Triglycerides Cholesterol LDL Cholesterol Direct HDL Cholesterol Urine pH Urine WBC (Auto) Urine Creatinine Urine Total Protein Fluid Total Protein Vancomycin Trough Rheumatoid Factor Complement C4 Miscellaneous Test Crossmatch 11/09/16 11/09/16 11/09/16 04:35 10:15 18:21 WBC RBC 2.68 L Hgb 7.8 L Hct 23.3 L MCV MCH MCHC RDW 17.0 H Plt Count Lymph % (Auto) [place] % (Auto) 12.1 H Lymph # [place] # 1.1 H Baso # Seg Neutrophils % Seg Neuts % (Manual) Lymphocytes % (Manual) Monocytes % (Manual) Eosinophils % (Manual) Basophils % (Manual) Nucleated RBC % Seg Neutrophils # Seg Neutrophils # Man Lymphocytes # (Manual) Monocytes # (Manual) Eosinophils # (Manual) PT INR Fibrinogen dRVVT Confirm Interp Factor V Activity POC ABG pH POC ABG pCO2 POC ABG pO2 ABG pO2 ABG HCO3 ABG Base Excess ABG Hemoglobin Oxyhemoglobin Sodium Potassium Chloride Carbon Dioxide BUN 51 H Creatinine 1.8 H Glucose POC Glucose 60 L Lactic Acid Calcium 8.3 L Phosphorus Magnesium Direct Bilirubin AST ALT Alkaline Phosphatase Lactate Dehydrogenase Troponin T C-Reactive Protein Total Protein Albumin Prealbumin Triglycerides Cholesterol LDL Cholesterol Direct HDL Cholesterol Urine pH Urine WBC (Auto) Urine Creatinine Urine Total Protein Fluid Total Protein Vancomycin Trough Rheumatoid Factor Complement C4 Miscellaneous Test Crossmatch 11/09/16 11/10/16 11/10/16 18:55 07:00 11:51 WBC RBC Hgb Hct MCV MCH MCHC RDW Plt Count Lymph % (Auto) [place] % (Auto) Lymph # [place] # Baso # Seg Neutrophils % Seg Neuts % (Manual) Lymphocytes % (Manual) Monocytes % (Manual) Eosinophils % (Manual) Basophils % (Manual) Nucleated RBC % Seg Neutrophils # Seg Neutrophils # Man Lymphocytes # (Manual) Monocytes # (Manual) Eosinophils # (Manual) PT INR Fibrinogen dRVVT Confirm Interp Factor V Activity POC ABG pH POC ABG pCO2 POC ABG pO2 ABG pO2 ABG HCO3 ABG Base Excess ABG Hemoglobin Oxyhemoglobin Sodium Potassium 3.0 L D Chloride 97.4 L Carbon Dioxide BUN 28 H Creatinine 1.3 H Glucose POC Glucose 68 L 120 H Lactic Acid Calcium 7.8 L Phosphorus Magnesium Direct Bilirubin AST ALT Alkaline Phosphatase Lactate Dehydrogenase Troponin T C-Reactive Protein Total Protein Albumin Prealbumin Triglycerides Cholesterol LDL Cholesterol Direct HDL Cholesterol Urine pH Urine WBC (Auto) Urine Creatinine Urine Total Protein Fluid Total Protein Vancomycin Trough Rheumatoid Factor Complement C4 Miscellaneous Test Crossmatch 11/10/16 11/11/16 11/11/16 14:20 06:59 06:59 WBC RBC 2.81 L Hgb 8.1 L Hct 24.4 L MCV MCH MCHC RDW 16.4 H Plt Count Lymph % (Auto) [place] % (Auto) 10.8 H Lymph # [place] # 1.0 H Baso # Seg Neutrophils % Seg Neuts % (Manual) Lymphocytes % (Manual) Monocytes % (Manual) Eosinophils % (Manual) Basophils % (Manual) Nucleated RBC % Seg Neutrophils # Seg Neutrophils # Man Lymphocytes # (Manual) Monocytes # (Manual) Eosinophils # (Manual) PT INR Fibrinogen dRVVT Confirm Interp Factor V Activity POC ABG pH POC ABG pCO2 POC ABG pO2 ABG pO2 ABG HCO3 ABG Base Excess ABG Hemoglobin Oxyhemoglobin Sodium Potassium Chloride Carbon Dioxide BUN Creatinine Glucose POC Glucose Lactic Acid Calcium Phosphorus Magnesium Direct Bilirubin AST ALT Alkaline Phosphatase Lactate Dehydrogenase 196 H Troponin T C-Reactive Protein Total Protein 6.1 L Albumin Prealbumin Triglycerides Cholesterol LDL Cholesterol Direct HDL Cholesterol Urine pH Urine WBC (Auto) Urine Creatinine Urine Total Protein Fluid Total Protein < 3.0 L Vancomycin Trough Rheumatoid Factor Complement C4 Miscellaneous Test Crossmatch 11/11/16 11/11/16 11/12/16 06:59 09:50 04:00 WBC RBC Hgb Hct MCV MCH MCHC RDW Plt Count Lymph % (Auto) [place] % (Auto) Lymph # [place] # Baso # Seg Neutrophils % Seg Neuts % (Manual) Lymphocytes % (Manual) Monocytes % (Manual) Eosinophils % (Manual) Basophils % (Manual) Nucleated RBC % Seg Neutrophils # Seg Neutrophils # Man Lymphocytes # (Manual) Monocytes # (Manual) Eosinophils # (Manual) PT INR 1.18 H Fibrinogen dRVVT Confirm Interp Factor V Activity POC ABG pH POC ABG pCO2 POC ABG pO2 ABG pO2 ABG HCO3 ABG Base Excess ABG Hemoglobin Oxyhemoglobin Sodium 136 L 133 L Potassium Chloride 96.1 L 94.8 L Carbon Dioxide 21 L BUN 37 H 42 H Creatinine 1.8 H 2.0 H Glucose POC Glucose Lactic Acid Calcium Phosphorus Magnesium Direct Bilirubin AST ALT Alkaline Phosphatase Lactate Dehydrogenase Troponin T C-Reactive Protein Total Protein Albumin Prealbumin Triglycerides Cholesterol LDL Cholesterol Direct HDL Cholesterol Urine pH Urine WBC (Auto) Urine Creatinine Urine Total Protein Fluid Total Protein Vancomycin Trough Rheumatoid Factor Complement C4 Miscellaneous Test Crossmatch 11/12/16 11/12/16 11/13/16 04:00 23:55 05:53 WBC RBC Hgb 8.9 L Hct 27.2 L MCV MCH MCHC RDW Plt Count Lymph % (Auto) [place] % (Auto) Lymph # [place] # Baso # Seg Neutrophils % Seg Neuts % (Manual) Lymphocytes % (Manual) Monocytes % (Manual) Eosinophils % (Manual) Basophils % (Manual) Nucleated RBC % Seg Neutrophils # Seg Neutrophils # Man Lymphocytes # (Manual) Monocytes # (Manual) Eosinophils # (Manual) PT INR Fibrinogen dRVVT Confirm Interp Factor V Activity POC ABG pH POC ABG pCO2 POC ABG pO2 ABG pO2 ABG HCO3 ABG Base Excess ABG Hemoglobin Oxyhemoglobin Sodium Potassium Chloride Carbon Dioxide BUN Creatinine Glucose POC Glucose 132 H 120 H Lactic Acid Calcium Phosphorus Magnesium Direct Bilirubin AST ALT Alkaline Phosphatase Lactate Dehydrogenase Troponin T C-Reactive Protein Total Protein Albumin Prealbumin Triglycerides Cholesterol LDL Cholesterol Direct HDL Cholesterol Urine pH Urine WBC (Auto) Urine Creatinine Urine Total Protein Fluid Total Protein Vancomycin Trough Rheumatoid Factor Complement C4 Miscellaneous Test Crossmatch 11/13/16 11/13/16 11/13/16 11:43 17:09 23:41 WBC RBC Hgb Hct MCV MCH MCHC RDW Plt Count Lymph % (Auto) [place] % (Auto) Lymph # [place] # Baso # Seg Neutrophils % Seg Neuts % (Manual) Lymphocytes % (Manual) Monocytes % (Manual) Eosinophils % (Manual) Basophils % (Manual) Nucleated RBC % Seg Neutrophils # Seg Neutrophils # Man Lymphocytes # (Manual) Monocytes # (Manual) Eosinophils # (Manual) PT INR Fibrinogen dRVVT Confirm Interp Factor V Activity POC ABG pH POC ABG pCO2 POC ABG pO2 ABG pO2 ABG HCO3 ABG Base Excess ABG Hemoglobin Oxyhemoglobin Sodium Potassium Chloride Carbon Dioxide BUN Creatinine Glucose POC Glucose 114 H 113 H 108 H Lactic Acid Calcium Phosphorus Magnesium Direct Bilirubin AST ALT Alkaline Phosphatase Lactate Dehydrogenase Troponin T C-Reactive Protein Total Protein Albumin Prealbumin Triglycerides Cholesterol LDL Cholesterol Direct HDL Cholesterol Urine pH Urine WBC (Auto) Urine Creatinine Urine Total Protein Fluid Total Protein Vancomycin Trough Rheumatoid Factor Complement C4 Miscellaneous Test Crossmatch 11/13/16 11/15/16 11/15/16 Unknown 00:37 03:30 WBC 11.2 H RBC 2.72 L Hgb 7.6 L Hct 23.4 L MCV MCH MCHC RDW 16.5 H Plt Count Lymph % (Auto) [place] % (Auto) Lymph # [place] # Baso # Seg Neutrophils % Seg Neuts % (Manual) Lymphocytes % (Manual) Monocytes % (Manual) Eosinophils % (Manual) Basophils % (Manual) Nucleated RBC % Seg Neutrophils # Seg Neutrophils # Man Lymphocytes # (Manual) Monocytes # (Manual) Eosinophils # (Manual) PT INR Fibrinogen dRVVT Confirm Interp Factor V Activity POC ABG pH POC ABG pCO2 POC ABG pO2 ABG pO2 ABG HCO3 ABG Base Excess ABG Hemoglobin Oxyhemoglobin Sodium 135 L Potassium Chloride 95.2 L Carbon Dioxide BUN 52 H Creatinine 2.2 H Glucose POC Glucose 108 H Lactic Acid Calcium Phosphorus Magnesium Direct Bilirubin AST ALT Alkaline Phosphatase Lactate Dehydrogenase Troponin T C-Reactive Protein Total Protein Albumin Prealbumin Triglycerides Cholesterol LDL Cholesterol Direct HDL Cholesterol Urine pH Urine WBC (Auto) Urine Creatinine Urine Total Protein Fluid Total Protein Vancomycin Trough Rheumatoid Factor Complement C4 Miscellaneous Test Crossmatch 11/15/16 11/15/16 11/15/16 03:30 05:04 11:50 WBC RBC Hgb Hct MCV MCH MCHC RDW Plt Count Lymph % (Auto) [place] % (Auto) Lymph # [place] # Baso # Seg Neutrophils % Seg Neuts % (Manual) Lymphocytes % (Manual) Monocytes % (Manual) Eosinophils % (Manual) Basophils % (Manual) Nucleated RBC % Seg Neutrophils # Seg Neutrophils # Man Lymphocytes # (Manual) Monocytes # (Manual) Eosinophils # (Manual) PT INR Fibrinogen dRVVT Confirm Interp Factor V Activity POC ABG pH POC ABG pCO2 POC ABG pO2 ABG pO2 ABG HCO3 ABG Base Excess ABG Hemoglobin Oxyhemoglobin Sodium Potassium 3.4 L Chloride Carbon Dioxide BUN 25 H Creatinine 1.5 H Glucose 103 H POC Glucose 121 H 144 H Lactic Acid Calcium Phosphorus Magnesium Direct Bilirubin AST ALT Alkaline Phosphatase Lactate Dehydrogenase Troponin T C-Reactive Protein Total Protein Albumin Prealbumin Triglycerides Cholesterol LDL Cholesterol Direct HDL Cholesterol Urine pH Urine WBC (Auto) Urine Creatinine Urine Total Protein Fluid Total Protein Vancomycin Trough Rheumatoid Factor Complement C4 Miscellaneous Test Crossmatch 11/15/16 11/15/16 11/16/16 21:28 23:20 11:44 WBC RBC Hgb Hct MCV MCH MCHC RDW Plt Count Lymph % (Auto) [place] % (Auto) Lymph # [place] # Baso # Seg Neutrophils % Seg Neuts % (Manual) Lymphocytes % (Manual) Monocytes % (Manual) Eosinophils % (Manual) Basophils % (Manual) Nucleated RBC % Seg Neutrophils # Seg Neutrophils # Man Lymphocytes # (Manual) Monocytes # (Manual) Eosinophils # (Manual) PT INR Fibrinogen dRVVT Confirm Interp Factor V Activity POC ABG pH 7.462 H POC ABG pCO2 POC ABG pO2 71 L ABG pO2 ABG HCO3 ABG Base Excess ABG Hemoglobin Oxyhemoglobin Sodium Potassium Chloride Carbon Dioxide BUN Creatinine Glucose POC Glucose 116 H 133 H Lactic Acid Calcium Phosphorus Magnesium Direct Bilirubin AST ALT Alkaline Phosphatase Lactate Dehydrogenase Troponin T C-Reactive Protein Total Protein Albumin Prealbumin Triglycerides Cholesterol LDL Cholesterol Direct HDL Cholesterol Urine pH Urine WBC (Auto) Urine Creatinine Urine Total Protein Fluid Total Protein Vancomycin Trough Rheumatoid Factor Complement C4 Miscellaneous Test Crossmatch 11/16/16 11/16/16 11/16/16 12:20 17:05 23:35 WBC 11.7 H RBC 2.73 L Hgb 7.6 L Hct 23.7 L MCV MCH MCHC RDW 16.6 H Plt Count Lymph % (Auto) [place] % (Auto) Lymph # [place] # Baso # Seg Neutrophils % Seg Neuts % (Manual) Lymphocytes % (Manual) Monocytes % (Manual) Eosinophils % (Manual) Basophils % (Manual) Nucleated RBC % Seg Neutrophils # Seg Neutrophils # Man Lymphocytes # (Manual) Monocytes # (Manual) Eosinophils # (Manual) PT INR Fibrinogen dRVVT Confirm Interp Factor V Activity POC ABG pH POC ABG pCO2 POC ABG pO2 ABG pO2 ABG HCO3 ABG Base Excess ABG Hemoglobin Oxyhemoglobin Sodium Potassium Chloride Carbon Dioxide BUN Creatinine Glucose POC Glucose 154 H 125 H Lactic Acid Calcium Phosphorus Magnesium Direct Bilirubin AST ALT Alkaline Phosphatase Lactate Dehydrogenase Troponin T C-Reactive Protein Total Protein Albumin Prealbumin Triglycerides Cholesterol LDL Cholesterol Direct HDL Cholesterol Urine pH Urine WBC (Auto) Urine Creatinine Urine Total Protein Fluid Total Protein Vancomycin Trough Rheumatoid Factor Complement C4 Miscellaneous Test Crossmatch 11/17/16 11/17/16 11/17/16 03:20 03:20 03:20 WBC RBC 2.55 L Hgb 7.3 L Hct 21.9 L MCV MCH MCHC RDW 16.6 H Plt Count Lymph % (Auto) [place] % (Auto) 11.5 H Lymph # [place] # 1.1 H Baso # Seg Neutrophils % Seg Neuts % (Manual) Lymphocytes % (Manual) Monocytes % (Manual) Eosinophils % (Manual) Basophils % (Manual) Nucleated RBC % Seg Neutrophils # Seg Neutrophils # Man Lymphocytes # (Manual) Monocytes # (Manual) Eosinophils # (Manual) PT 16.8 H INR 1.37 H Fibrinogen dRVVT Confirm Interp Factor V Activity POC ABG pH POC ABG pCO2 POC ABG pO2 ABG pO2 ABG HCO3 ABG Base Excess ABG Hemoglobin Oxyhemoglobin Sodium Potassium 3.5 L Chloride Carbon Dioxide BUN 21 H Creatinine Glucose POC Glucose Lactic Acid Calcium 7.9 L Phosphorus Magnesium Direct Bilirubin AST ALT Alkaline Phosphatase Lactate Dehydrogenase Troponin T C-Reactive Protein Total Protein Albumin Prealbumin Triglycerides Cholesterol LDL Cholesterol Direct HDL Cholesterol Urine pH Urine WBC (Auto) Urine Creatinine Urine Total Protein Fluid Total Protein Vancomycin Trough Rheumatoid Factor Complement C4 Miscellaneous Test Crossmatch 11/17/16 11/17/16 11/17/16 06:34 11:21 21:22 WBC RBC Hgb Hct MCV MCH MCHC RDW Plt Count Lymph % (Auto) [place] % (Auto) Lymph # [place] # Baso # Seg Neutrophils % Seg Neuts % (Manual) Lymphocytes % (Manual) Monocytes % (Manual) Eosinophils % (Manual) Basophils % (Manual) Nucleated RBC % Seg Neutrophils # Seg Neutrophils # Man Lymphocytes # (Manual) Monocytes # (Manual) Eosinophils # (Manual) PT INR Fibrinogen dRVVT Confirm Interp Factor V Activity POC ABG pH 7.467 H POC ABG pCO2 POC ABG pO2 73 L ABG pO2 ABG HCO3 ABG Base Excess ABG Hemoglobin Oxyhemoglobin Sodium Potassium Chloride Carbon Dioxide BUN Creatinine Glucose POC Glucose 121 H 119 H Lactic Acid Calcium Phosphorus Magnesium Direct Bilirubin AST ALT Alkaline Phosphatase Lactate Dehydrogenase Troponin T C-Reactive Protein Total Protein Albumin Prealbumin Triglycerides Cholesterol LDL Cholesterol Direct HDL Cholesterol Urine pH Urine WBC (Auto) Urine Creatinine Urine Total Protein Fluid Total Protein Vancomycin Trough Rheumatoid Factor Complement C4 Miscellaneous Test Crossmatch 11/18/16 11/18/16 11/19/16 12:16 17:19 00:00 WBC RBC Hgb Hct MCV MCH MCHC RDW Plt Count Lymph % (Auto) [place] % (Auto) Lymph # [place] # Baso # Seg Neutrophils % Seg Neuts % (Manual) Lymphocytes % (Manual) Monocytes % (Manual) Eosinophils % (Manual) Basophils % (Manual) Nucleated RBC % Seg Neutrophils # Seg Neutrophils # Man Lymphocytes # (Manual) Monocytes # (Manual) Eosinophils # (Manual) PT INR Fibrinogen dRVVT Confirm Interp Factor V Activity POC ABG pH POC ABG pCO2 POC ABG pO2 ABG pO2 ABG HCO3 ABG Base Excess ABG Hemoglobin Oxyhemoglobin Sodium Potassium Chloride Carbon Dioxide BUN Creatinine Glucose POC Glucose 124 H 162 H 139 H Lactic Acid Calcium Phosphorus Magnesium Direct Bilirubin AST ALT Alkaline Phosphatase Lactate Dehydrogenase Troponin T C-Reactive Protein Total Protein Albumin Prealbumin Triglycerides Cholesterol LDL Cholesterol Direct HDL Cholesterol Urine pH Urine WBC (Auto) Urine Creatinine Urine Total Protein Fluid Total Protein Vancomycin Trough Rheumatoid Factor Complement C4 Miscellaneous Test Crossmatch 11/19/16 11/19/16 11/20/16 05:00 12:43 00:40 WBC RBC Hgb Hct MCV MCH MCHC RDW Plt Count Lymph % (Auto) [place] % (Auto) Lymph # [place] # Baso # Seg Neutrophils % Seg Neuts % (Manual) Lymphocytes % (Manual) Monocytes % (Manual) Eosinophils % (Manual) Basophils % (Manual) Nucleated RBC % Seg Neutrophils # Seg Neutrophils # Man Lymphocytes # (Manual) Monocytes # (Manual) Eosinophils # (Manual) PT INR Fibrinogen dRVVT Confirm Interp Factor V Activity POC ABG pH POC ABG pCO2 POC ABG pO2 ABG pO2 ABG HCO3 ABG Base Excess ABG Hemoglobin Oxyhemoglobin Sodium Potassium Chloride Carbon Dioxide BUN Creatinine Glucose POC Glucose 110 H 125 H 136 H Lactic Acid Calcium Phosphorus Magnesium Direct Bilirubin AST ALT Alkaline Phosphatase Lactate Dehydrogenase Troponin T C-Reactive Protein Total Protein Albumin Prealbumin Triglycerides Cholesterol LDL Cholesterol Direct HDL Cholesterol Urine pH Urine WBC (Auto) Urine Creatinine Urine Total Protein Fluid Total Protein Vancomycin Trough Rheumatoid Factor Complement C4 Miscellaneous Test Crossmatch 11/20/16 11/20/16 11/20/16 05:00 05:00 05:51 WBC 13.1 H RBC 2.74 L Hgb 7.7 L Hct 23.6 L MCV MCH MCHC RDW 16.9 H Plt Count Lymph % (Auto) [place] % (Auto) 10.8 H Lymph # [place] # 1.4 H Baso # Seg Neutrophils % Seg Neuts % (Manual) Lymphocytes % (Manual) Monocytes % (Manual) Eosinophils % (Manual) Basophils % (Manual) Nucleated RBC % Seg Neutrophils # 7.9 H Seg Neutrophils # Man Lymphocytes # (Manual) Monocytes # (Manual) Eosinophils # (Manual) PT INR Fibrinogen dRVVT Confirm Interp Factor V Activity POC ABG pH POC ABG pCO2 POC ABG pO2 ABG pO2 ABG HCO3 ABG Base Excess ABG Hemoglobin Oxyhemoglobin Sodium Potassium Chloride Carbon Dioxide BUN 31 H Creatinine 1.8 H Glucose 129 H POC Glucose 133 H Lactic Acid Calcium Phosphorus Magnesium Direct Bilirubin AST ALT Alkaline Phosphatase Lactate Dehydrogenase Troponin T C-Reactive Protein Total Protein Albumin Prealbumin Triglycerides Cholesterol LDL Cholesterol Direct HDL Cholesterol Urine pH Urine WBC (Auto) Urine Creatinine Urine Total Protein Fluid Total Protein Vancomycin Trough Rheumatoid Factor Complement C4 Miscellaneous Test Crossmatch 11/20/16 11/20/16 11/21/16 12:40 18:10 01:20 WBC RBC Hgb Hct MCV MCH MCHC RDW Plt Count Lymph % (Auto) [place] % (Auto) Lymph # [place] # Baso # Seg Neutrophils % Seg Neuts % (Manual) Lymphocytes % (Manual) Monocytes % (Manual) Eosinophils % (Manual) Basophils % (Manual) Nucleated RBC % Seg Neutrophils # Seg Neutrophils # Man Lymphocytes # (Manual) Monocytes # (Manual) Eosinophils # (Manual) PT INR Fibrinogen dRVVT Confirm Interp Factor V Activity POC ABG pH POC ABG pCO2 POC ABG pO2 ABG pO2 ABG HCO3 ABG Base Excess ABG Hemoglobin Oxyhemoglobin Sodium Potassium Chloride Carbon Dioxide BUN Creatinine Glucose POC Glucose 134 H 138 H 136 H Lactic Acid Calcium Phosphorus Magnesium Direct Bilirubin AST ALT Alkaline Phosphatase Lactate Dehydrogenase Troponin T C-Reactive Protein Total Protein Albumin Prealbumin Triglycerides Cholesterol LDL Cholesterol Direct HDL Cholesterol Urine pH Urine WBC (Auto) Urine Creatinine Urine Total Protein Fluid Total Protein Vancomycin Trough Rheumatoid Factor Complement C4 Miscellaneous Test Crossmatch 11/21/16 11/21/16 11/21/16 07:04 07:45 07:45 WBC 22.0 H RBC 2.91 L Hgb 8.2 L Hct 25.4 L MCV MCH MCHC RDW 17.1 H Plt Count Lymph % (Auto) [place] % (Auto) Lymph # [place] # Baso # Seg Neutrophils % Seg Neuts % (Manual) Lymphocytes % (Manual) 8.0 L Monocytes % (Manual) Eosinophils % (Manual) Basophils % (Manual) Nucleated RBC % Seg Neutrophils # Seg Neutrophils # Man 14.7 H Lymphocytes # (Manual) Monocytes # (Manual) 1.1 H Eosinophils # (Manual) PT INR Fibrinogen dRVVT Confirm Interp Factor V Activity POC ABG pH POC ABG pCO2 POC ABG pO2 ABG pO2 ABG HCO3 ABG Base Excess ABG Hemoglobin Oxyhemoglobin Sodium Potassium Chloride Carbon Dioxide BUN 42 H Creatinine 2.0 H Glucose POC Glucose 108 H Lactic Acid Calcium Phosphorus Magnesium Direct Bilirubin AST ALT Alkaline Phosphatase Lactate Dehydrogenase Troponin T C-Reactive Protein Total Protein Albumin Prealbumin Triglycerides Cholesterol LDL Cholesterol Direct HDL Cholesterol Urine pH Urine WBC (Auto) Urine Creatinine Urine Total Protein Fluid Total Protein Vancomycin Trough Rheumatoid Factor Complement C4 Miscellaneous Test Crossmatch 11/21/16 11/21/16 11/21/16 08:38 10:09 11:20 WBC RBC Hgb Hct MCV MCH MCHC RDW Plt Count Lymph % (Auto) [place] % (Auto) Lymph # [place] # Baso # Seg Neutrophils % Seg Neuts % (Manual) Lymphocytes % (Manual) Monocytes % (Manual) Eosinophils % (Manual) Basophils % (Manual) Nucleated RBC % Seg Neutrophils # Seg Neutrophils # Man Lymphocytes # (Manual) Monocytes # (Manual) Eosinophils # (Manual) PT INR Fibrinogen dRVVT Confirm Interp Factor V Activity POC ABG pH 7.346 L POC ABG pCO2 34.4 L POC ABG pO2 314 H ABG pO2 ABG HCO3 ABG Base Excess ABG Hemoglobin Oxyhemoglobin Sodium Potassium Chloride Carbon Dioxide BUN Creatinine Glucose POC Glucose 195 H 153 H Lactic Acid Calcium Phosphorus Magnesium Direct Bilirubin AST ALT Alkaline Phosphatase Lactate Dehydrogenase Troponin T C-Reactive Protein Total Protein Albumin Prealbumin Triglycerides Cholesterol LDL Cholesterol Direct HDL Cholesterol Urine pH Urine WBC (Auto) Urine Creatinine Urine Total Protein Fluid Total Protein Vancomycin Trough Rheumatoid Factor Complement C4 Miscellaneous Test Crossmatch 11/21/16 11/22/16 11/22/16 23:37 04:48 05:00 WBC 29.7 H RBC 2.73 L Hgb 7.5 L Hct 24.2 L MCV MCH 27 L MCHC RDW 17.4 H Plt Count Lymph % (Auto) [place] % (Auto) Lymph # [place] # Baso # Seg Neutrophils % Seg Neuts % (Manual) Lymphocytes % (Manual) 7.0 L Monocytes % (Manual) Eosinophils % (Manual) Basophils % (Manual) Nucleated RBC % Seg Neutrophils # Seg Neutrophils # Man 15.4 H Lymphocytes # (Manual) Monocytes # (Manual) Eosinophils # (Manual) PT INR Fibrinogen dRVVT Confirm Interp Factor V Activity POC ABG pH POC ABG pCO2 24.6 L POC ABG pO2 189 H ABG pO2 ABG HCO3 ABG Base Excess ABG Hemoglobin Oxyhemoglobin Sodium Potassium Chloride Carbon Dioxide BUN Creatinine Glucose POC Glucose 65 L Lactic Acid Calcium Phosphorus Magnesium Direct Bilirubin AST ALT Alkaline Phosphatase Lactate Dehydrogenase Troponin T C-Reactive Protein Total Protein Albumin Prealbumin Triglycerides Cholesterol LDL Cholesterol Direct HDL Cholesterol Urine pH Urine WBC (Auto) Urine Creatinine Urine Total Protein Fluid Total Protein Vancomycin Trough Rheumatoid Factor Complement C4 Miscellaneous Test Crossmatch 11/22/16 11/23/16 11/23/16 05:00 03:44 04:06 WBC RBC 2.52 L Hgb 7.2 L Hct 21.5 L MCV MCH MCHC RDW 17.1 H Plt Count Lymph % (Auto) [place] % (Auto) 12.4 H Lymph # [place] # 1.4 H Baso # Seg Neutrophils % Seg Neuts % (Manual) Lymphocytes % (Manual) Monocytes % (Manual) Eosinophils % (Manual) Basophils % (Manual) Nucleated RBC % Seg Neutrophils # Seg Neutrophils # Man Lymphocytes # (Manual) Monocytes # (Manual) Eosinophils # (Manual) PT INR Fibrinogen dRVVT Confirm Interp Factor V Activity POC ABG pH 7.493 H POC ABG pCO2 29.5 L POC ABG pO2 49 L ABG pO2 ABG HCO3 ABG Base Excess ABG Hemoglobin Oxyhemoglobin Sodium 134 L Potassium Chloride 95.9 L Carbon Dioxide 14 L D BUN 51 H Creatinine 2.6 H Glucose POC Glucose Lactic Acid Calcium Phosphorus Magnesium Direct Bilirubin AST ALT Alkaline Phosphatase Lactate Dehydrogenase Troponin T C-Reactive Protein Total Protein Albumin Prealbumin Triglycerides Cholesterol LDL Cholesterol Direct HDL Cholesterol Urine pH Urine WBC (Auto) Urine Creatinine Urine Total Protein Fluid Total Protein Vancomycin Trough Rheumatoid Factor Complement C4 Miscellaneous Test Crossmatch 11/23/16 11/23/16 11/24/16 04:06 11:29 06:39 WBC RBC Hgb Hct MCV MCH MCHC RDW Plt Count Lymph % (Auto) [place] % (Auto) Lymph # [place] # Baso # Seg Neutrophils % Seg Neuts % (Manual) Lymphocytes % (Manual) Monocytes % (Manual) Eosinophils % (Manual) Basophils % (Manual) Nucleated RBC % Seg Neutrophils # Seg Neutrophils # Man Lymphocytes # (Manual) Monocytes # (Manual) Eosinophils # (Manual) PT INR Fibrinogen dRVVT Confirm Interp Factor V Activity POC ABG pH POC ABG pCO2 POC ABG pO2 ABG pO2 ABG HCO3 ABG Base Excess ABG Hemoglobin Oxyhemoglobin Sodium 136 L Potassium Chloride 95.2 L Carbon Dioxide BUN 60 H Creatinine 2.9 H Glucose POC Glucose 69 L 305 H Lactic Acid Calcium Phosphorus Magnesium 1.60 L Direct Bilirubin AST ALT Alkaline Phosphatase Lactate Dehydrogenase Troponin T C-Reactive Protein Total Protein Albumin Prealbumin Triglycerides Cholesterol LDL Cholesterol Direct HDL Cholesterol Urine pH Urine WBC (Auto) Urine Creatinine Urine Total Protein Fluid Total Protein Vancomycin Trough Rheumatoid Factor Complement C4 Miscellaneous Test Crossmatch 11/24/16 11/24/16 11/24/16 06:43 08:08 08:08 WBC 11.2 H RBC 2.47 L Hgb 6.8 L Hct 20.6 L MCV MCH MCHC RDW 17.0 H Plt Count Lymph % (Auto) [place] % (Auto) 10.3 H Lymph # [place] # 1.2 H Baso # Seg Neutrophils % Seg Neuts % (Manual) Lymphocytes % (Manual) Monocytes % (Manual) Eosinophils % (Manual) Basophils % (Manual) Nucleated RBC % Seg Neutrophils # Seg Neutrophils # Man Lymphocytes # (Manual) Monocytes # (Manual) Eosinophils # (Manual) PT INR Fibrinogen dRVVT Confirm Interp Factor V Activity POC ABG pH POC ABG pCO2 POC ABG pO2 ABG pO2 ABG HCO3 ABG Base Excess ABG Hemoglobin Oxyhemoglobin Sodium 135 L Potassium Chloride 96.3 L Carbon Dioxide BUN 61 H Creatinine 3.1 H Glucose POC Glucose 62 L Lactic Acid Calcium 8.2 L Phosphorus Magnesium Direct Bilirubin AST ALT Alkaline Phosphatase Lactate Dehydrogenase Troponin T C-Reactive Protein Total Protein Albumin Prealbumin Triglycerides Cholesterol LDL Cholesterol Direct HDL Cholesterol Urine pH Urine WBC (Auto) Urine Creatinine Urine Total Protein Fluid Total Protein Vancomycin Trough Rheumatoid Factor Complement C4 Miscellaneous Test Crossmatch 11/24/16 11/24/16 11/24/16 08:34 11:20 12:41 WBC RBC Hgb Hct MCV MCH MCHC RDW Plt Count Lymph % (Auto) [place] % (Auto) Lymph # [place] # Baso # Seg Neutrophils % Seg Neuts % (Manual) Lymphocytes % (Manual) Monocytes % (Manual) Eosinophils % (Manual) Basophils % (Manual) Nucleated RBC % Seg Neutrophils # Seg Neutrophils # Man Lymphocytes # (Manual) Monocytes # (Manual) Eosinophils # (Manual) PT INR Fibrinogen dRVVT Confirm Interp Factor V Activity POC ABG pH POC ABG pCO2 POC ABG pO2 ABG pO2 ABG HCO3 ABG Base Excess ABG Hemoglobin Oxyhemoglobin Sodium Potassium Chloride Carbon Dioxide BUN Creatinine Glucose POC Glucose 108 H Lactic Acid Calcium Phosphorus Magnesium 1.60 L Direct Bilirubin AST ALT Alkaline Phosphatase Lactate Dehydrogenase Troponin T C-Reactive Protein Total Protein Albumin Prealbumin Triglycerides Cholesterol LDL Cholesterol Direct HDL Cholesterol Urine pH Urine WBC (Auto) Urine Creatinine Urine Total Protein Fluid Total Protein Vancomycin Trough Rheumatoid Factor Complement C4 Miscellaneous Test Crossmatch See Detail 11/25/16 11/25/16 11/25/16 00:03 04:42 04:42 WBC RBC 3.03 L Hgb 8.6 L Hct 25.3 L MCV MCH MCHC RDW 16.2 H Plt Count Lymph % (Auto) [place] % (Auto) 8.1 H Lymph # [place] # Baso # Seg Neutrophils % 71.3 H Seg Neuts % (Manual) Lymphocytes % (Manual) Monocytes % (Manual) Eosinophils % (Manual) Basophils % (Manual) Nucleated RBC % Seg Neutrophils # Seg Neutrophils # Man Lymphocytes # (Manual) Monocytes # (Manual) Eosinophils # (Manual) PT INR Fibrinogen dRVVT Confirm Interp Factor V Activity POC ABG pH POC ABG pCO2 POC ABG pO2 ABG pO2 ABG HCO3 ABG Base Excess ABG Hemoglobin Oxyhemoglobin Sodium Potassium Chloride Carbon Dioxide BUN 61 H Creatinine 3.0 H Glucose 102 H POC Glucose 113 H Lactic Acid Calcium 8.2 L Phosphorus Magnesium Direct Bilirubin AST ALT Alkaline Phosphatase 142 H Lactate Dehydrogenase Troponin T C-Reactive Protein Total Protein 5.7 L Albumin 1.5 L Prealbumin Triglycerides Cholesterol LDL Cholesterol Direct HDL Cholesterol Urine pH Urine WBC (Auto) Urine Creatinine Urine Total Protein Fluid Total Protein Vancomycin Trough Rheumatoid Factor Complement C4 Miscellaneous Test Crossmatch 11/25/16 11/25/16 11/25/16 05:12 11:31 14:12 WBC RBC Hgb Hct MCV MCH MCHC RDW Plt Count Lymph % (Auto) [place] % (Auto) Lymph # [place] # Baso # Seg Neutrophils % Seg Neuts % (Manual) Lymphocytes % (Manual) Monocytes % (Manual) Eosinophils % (Manual) Basophils % (Manual) Nucleated RBC % Seg Neutrophils # Seg Neutrophils # Man Lymphocytes # (Manual) Monocytes # (Manual) Eosinophils # (Manual) PT INR Fibrinogen dRVVT Confirm Interp Factor V Activity POC ABG pH 7.487 H POC ABG pCO2 POC ABG pO2 153 H ABG pO2 ABG HCO3 ABG Base Excess ABG Hemoglobin Oxyhemoglobin Sodium Potassium Chloride Carbon Dioxide BUN Creatinine Glucose POC Glucose 131 H 140 H Lactic Acid Calcium Phosphorus Magnesium Direct Bilirubin AST ALT Alkaline Phosphatase Lactate Dehydrogenase Troponin T C-Reactive Protein Total Protein Albumin Prealbumin Triglycerides Cholesterol LDL Cholesterol Direct HDL Cholesterol Urine pH Urine WBC (Auto) Urine Creatinine Urine Total Protein Fluid Total Protein Vancomycin Trough Rheumatoid Factor Complement C4 Miscellaneous Test Crossmatch 11/25/16 11/26/16 11/26/16 17:23 00:09 05:13 WBC RBC 2.94 L Hgb 8.4 L Hct 24.6 L MCV MCH MCHC RDW 16.4 H Plt Count Lymph % (Auto) [place] % (Auto) 12.3 H Lymph # [place] # 1.1 H Baso # Seg Neutrophils % Seg Neuts % (Manual) Lymphocytes % (Manual) Monocytes % (Manual) Eosinophils % (Manual) Basophils % (Manual) Nucleated RBC % Seg Neutrophils # Seg Neutrophils # Man Lymphocytes # (Manual) Monocytes # (Manual) Eosinophils # (Manual) PT INR Fibrinogen dRVVT Confirm Interp Factor V Activity POC ABG pH POC ABG pCO2 POC ABG pO2 ABG pO2 ABG HCO3 ABG Base Excess ABG Hemoglobin Oxyhemoglobin Sodium Potassium Chloride Carbon Dioxide BUN Creatinine Glucose POC Glucose 146 H 112 H Lactic Acid Calcium Phosphorus Magnesium Direct Bilirubin AST ALT Alkaline Phosphatase Lactate Dehydrogenase Troponin T C-Reactive Protein Total Protein Albumin Prealbumin Triglycerides Cholesterol LDL Cholesterol Direct HDL Cholesterol Urine pH Urine WBC (Auto) Urine Creatinine Urine Total Protein Fluid Total Protein Vancomycin Trough Rheumatoid Factor Complement C4 Miscellaneous Test Crossmatch 11/26/16 11/26/16 11/26/16 05:13 05:28 11:53 WBC RBC Hgb Hct MCV MCH MCHC RDW Plt Count Lymph % (Auto) [place] % (Auto) Lymph # [place] # Baso # Seg Neutrophils % Seg Neuts % (Manual) Lymphocytes % (Manual) Monocytes % (Manual) Eosinophils % (Manual) Basophils % (Manual) Nucleated RBC % Seg Neutrophils # Seg Neutrophils # Man Lymphocytes # (Manual) Monocytes # (Manual) Eosinophils # (Manual) PT INR Fibrinogen dRVVT Confirm Interp Factor V Activity POC ABG pH POC ABG pCO2 POC ABG pO2 ABG pO2 ABG HCO3 ABG Base Excess ABG Hemoglobin Oxyhemoglobin Sodium Potassium Chloride 97.8 L Carbon Dioxide BUN 37 H Creatinine 2.0 H Glucose 109 H POC Glucose 117 H 111 H Lactic Acid Calcium 7.9 L Phosphorus 1.80 L D Magnesium Direct Bilirubin AST ALT Alkaline Phosphatase Lactate Dehydrogenase Troponin T C-Reactive Protein Total Protein Albumin Prealbumin Triglycerides Cholesterol LDL Cholesterol Direct HDL Cholesterol Urine pH Urine WBC (Auto) Urine Creatinine Urine Total Protein Fluid Total Protein Vancomycin Trough Rheumatoid Factor Complement C4 Miscellaneous Test Crossmatch 11/26/16 11/27/16 11/27/16 17:14 04:50 06:02 WBC RBC Hgb Hct MCV MCH MCHC RDW Plt Count Lymph % (Auto) [place] % (Auto) Lymph # [place] # Baso # Seg Neutrophils % Seg Neuts % (Manual) Lymphocytes % (Manual) Monocytes % (Manual) Eosinophils % (Manual) Basophils % (Manual) Nucleated RBC % Seg Neutrophils # Seg Neutrophils # Man Lymphocytes # (Manual) Monocytes # (Manual) Eosinophils # (Manual) PT INR Fibrinogen dRVVT Confirm Interp Factor V Activity POC ABG pH POC ABG pCO2 POC ABG pO2 ABG pO2 75.2 L ABG HCO3 26.4 H ABG Base Excess ABG Hemoglobin 7.6 L Oxyhemoglobin 94.8 L Sodium Potassium Chloride Carbon Dioxide BUN 49 H Creatinine 2.3 H Glucose POC Glucose 115 H Lactic Acid Calcium Phosphorus 1.50 L Magnesium Direct Bilirubin AST ALT Alkaline Phosphatase Lactate Dehydrogenase Troponin T C-Reactive Protein Total Protein Albumin Prealbumin Triglycerides Cholesterol LDL Cholesterol Direct HDL Cholesterol Urine pH Urine WBC (Auto) Urine Creatinine Urine Total Protein Fluid Total Protein Vancomycin Trough Rheumatoid Factor Complement C4 Miscellaneous Test Crossmatch 11/27/16 11/27/16 11/27/16 06:02 11:25 17:25 WBC 11.6 H RBC 2.75 L Hgb 7.6 L Hct 23.4 L MCV MCH MCHC RDW 16.5 H Plt Count Lymph % (Auto) [place] % (Auto) Lymph # [place] # Baso # Seg Neutrophils % Seg Neuts % (Manual) Lymphocytes % (Manual) Monocytes % (Manual) Eosinophils % (Manual) Basophils % (Manual) Nucleated RBC % Seg Neutrophils # Seg Neutrophils # Man Lymphocytes # (Manual) Monocytes # (Manual) Eosinophils # (Manual) PT INR Fibrinogen dRVVT Confirm Interp Factor V Activity POC ABG pH POC ABG pCO2 POC ABG pO2 ABG pO2 ABG HCO3 ABG Base Excess ABG Hemoglobin Oxyhemoglobin Sodium Potassium Chloride Carbon Dioxide BUN Creatinine Glucose POC Glucose 114 H 126 H Lactic Acid Calcium Phosphorus Magnesium Direct Bilirubin AST ALT Alkaline Phosphatase Lactate Dehydrogenase Troponin T C-Reactive Protein Total Protein Albumin Prealbumin Triglycerides Cholesterol LDL Cholesterol Direct HDL Cholesterol Urine pH Urine WBC (Auto) Urine Creatinine Urine Total Protein Fluid Total Protein Vancomycin Trough Rheumatoid Factor Complement C4 Miscellaneous Test Crossmatch 11/28/16 11/28/16 11/28/16 04:45 05:33 05:44 WBC RBC Hgb Hct MCV MCH MCHC RDW Plt Count Lymph % (Auto) [place] % (Auto) Lymph # [place] # Baso # Seg Neutrophils % Seg Neuts % (Manual) Lymphocytes % (Manual) Monocytes % (Manual) Eosinophils % (Manual) Basophils % (Manual) Nucleated RBC % Seg Neutrophils # Seg Neutrophils # Man Lymphocytes # (Manual) Monocytes # (Manual) Eosinophils # (Manual) PT INR Fibrinogen dRVVT Confirm Interp Factor V Activity POC ABG pH POC ABG pCO2 POC ABG pO2 ABG pO2 99.3 H ABG HCO3 ABG Base Excess ABG Hemoglobin 8.3 L Oxyhemoglobin Sodium Potassium Chloride Carbon Dioxide BUN 63 H Creatinine 2.4 H Glucose 102 H POC Glucose 108 H Lactic Acid Calcium Phosphorus 1.80 L Magnesium Direct Bilirubin AST ALT Alkaline Phosphatase Lactate Dehydrogenase Troponin T C-Reactive Protein Total Protein Albumin Prealbumin Triglycerides Cholesterol LDL Cholesterol Direct HDL Cholesterol Urine pH Urine WBC (Auto) Urine Creatinine Urine Total Protein Fluid Total Protein Vancomycin Trough Rheumatoid Factor Complement C4 Miscellaneous Test Crossmatch 11/28/16 11/28/16 11/28/16 12:31 16:09 23:46 WBC RBC Hgb Hct MCV MCH MCHC RDW Plt Count Lymph % (Auto) [place] % (Auto) Lymph # [place] # Baso # Seg Neutrophils % Seg Neuts % (Manual) Lymphocytes % (Manual) Monocytes % (Manual) Eosinophils % (Manual) Basophils % (Manual) Nucleated RBC % Seg Neutrophils # Seg Neutrophils # Man Lymphocytes # (Manual) Monocytes # (Manual) Eosinophils # (Manual) PT INR Fibrinogen dRVVT Confirm Interp Factor V Activity POC ABG pH POC ABG pCO2 POC ABG pO2 ABG pO2 ABG HCO3 ABG Base Excess ABG Hemoglobin Oxyhemoglobin Sodium Potassium Chloride Carbon Dioxide BUN Creatinine Glucose POC Glucose 126 H 111 H 119 H Lactic Acid Calcium Phosphorus Magnesium Direct Bilirubin AST ALT Alkaline Phosphatase Lactate Dehydrogenase Troponin T C-Reactive Protein Total Protein Albumin Prealbumin Triglycerides Cholesterol LDL Cholesterol Direct HDL Cholesterol Urine pH Urine WBC (Auto) Urine Creatinine Urine Total Protein Fluid Total Protein Vancomycin Trough Rheumatoid Factor Complement C4 Miscellaneous Test Crossmatch 11/29/16 11/29/16 11/29/16 03:33 04:52 05:10 WBC RBC Hgb Hct MCV MCH MCHC RDW Plt Count Lymph % (Auto) [place] % (Auto) Lymph # [place] # Baso # Seg Neutrophils % Seg Neuts % (Manual) Lymphocytes % (Manual) Monocytes % (Manual) Eosinophils % (Manual) Basophils % (Manual) Nucleated RBC % Seg Neutrophils # Seg Neutrophils # Man Lymphocytes # (Manual) Monocytes # (Manual) Eosinophils # (Manual) PT INR Fibrinogen dRVVT Confirm Interp Factor V Activity POC ABG pH POC ABG pCO2 POC ABG pO2 ABG pO2 ABG HCO3 ABG Base Excess ABG Hemoglobin 7.0 L Oxyhemoglobin 94.9 L Sodium Potassium Chloride Carbon Dioxide BUN 73 H Creatinine 2.7 H Glucose POC Glucose 108 H Lactic Acid Calcium Phosphorus Magnesium Direct Bilirubin AST ALT Alkaline Phosphatase Lactate Dehydrogenase Troponin T C-Reactive Protein Total Protein Albumin Prealbumin Triglycerides Cholesterol LDL Cholesterol Direct HDL Cholesterol Urine pH Urine WBC (Auto) Urine Creatinine Urine Total Protein Fluid Total Protein Vancomycin Trough Rheumatoid Factor Complement C4 Miscellaneous Test Crossmatch 11/29/16 11/29/16 11/29/16 12:16 18:05 23:46 WBC RBC Hgb Hct MCV MCH MCHC RDW Plt Count Lymph % (Auto) [place] % (Auto) Lymph # [place] # Baso # Seg Neutrophils % Seg Neuts % (Manual) Lymphocytes % (Manual) Monocytes % (Manual) Eosinophils % (Manual) Basophils % (Manual) Nucleated RBC % Seg Neutrophils # Seg Neutrophils # Man Lymphocytes # (Manual) Monocytes # (Manual) Eosinophils # (Manual) PT INR Fibrinogen dRVVT Confirm Interp Factor V Activity POC ABG pH POC ABG pCO2 POC ABG pO2 ABG pO2 ABG HCO3 ABG Base Excess ABG Hemoglobin Oxyhemoglobin Sodium Potassium Chloride Carbon Dioxide BUN Creatinine Glucose POC Glucose 133 H 146 H 141 H Lactic Acid Calcium Phosphorus Magnesium Direct Bilirubin AST ALT Alkaline Phosphatase Lactate Dehydrogenase Troponin T C-Reactive Protein Total Protein Albumin Prealbumin Triglycerides Cholesterol LDL Cholesterol Direct HDL Cholesterol Urine pH Urine WBC (Auto) Urine Creatinine Urine Total Protein Fluid Total Protein Vancomycin Trough Rheumatoid Factor Complement C4 Miscellaneous Test Crossmatch 11/30/16 11/30/16 11/30/16 04:17 04:17 04:32 WBC 12.0 H RBC 2.80 L Hgb 7.8 L Hct 23.6 L MCV MCH MCHC RDW 16.6 H Plt Count Lymph % (Auto) [place] % (Auto) 11.3 H Lymph # [place] # 1.4 H Baso # Seg Neutrophils % Seg Neuts % (Manual) Lymphocytes % (Manual) Monocytes % (Manual) Eosinophils % (Manual) Basophils % (Manual) Nucleated RBC % Seg Neutrophils # 8.2 H Seg Neutrophils # Man Lymphocytes # (Manual) Monocytes # (Manual) Eosinophils # (Manual) PT INR Fibrinogen dRVVT Confirm Interp Factor V Activity POC ABG pH POC ABG pCO2 POC ABG pO2 ABG pO2 ABG HCO3 ABG Base Excess ABG Hemoglobin Oxyhemoglobin Sodium 169 H* D Potassium 5.1 H Chloride 121.5 H Carbon Dioxide BUN 34 H Creatinine 1.3 H D Glucose 133 H POC Glucose 131 H Lactic Acid Calcium 10.3 H Phosphorus Magnesium Direct Bilirubin AST ALT Alkaline Phosphatase Lactate Dehydrogenase Troponin T C-Reactive Protein Total Protein Albumin Prealbumin Triglycerides Cholesterol LDL Cholesterol Direct HDL Cholesterol Urine pH Urine WBC (Auto) Urine Creatinine Urine Total Protein Fluid Total Protein Vancomycin Trough Rheumatoid Factor Complement C4 Miscellaneous Test Crossmatch 11/30/16 11/30/16 11/30/16 05:45 11:10 17:26 WBC RBC Hgb Hct MCV MCH MCHC RDW Plt Count Lymph % (Auto) [place] % (Auto) Lymph # [place] # Baso # Seg Neutrophils % Seg Neuts % (Manual) Lymphocytes % (Manual) Monocytes % (Manual) Eosinophils % (Manual) Basophils % (Manual) Nucleated RBC % Seg Neutrophils # Seg Neutrophils # Man Lymphocytes # (Manual) Monocytes # (Manual) Eosinophils # (Manual) PT INR Fibrinogen dRVVT Confirm Interp Factor V Activity POC ABG pH POC ABG pCO2 POC ABG pO2 ABG pO2 ABG HCO3 ABG Base Excess ABG Hemoglobin Oxyhemoglobin Sodium Potassium Chloride Carbon Dioxide BUN 45 H Creatinine 1.6 H Glucose 131 H POC Glucose 146 H 134 H Lactic Acid Calcium Phosphorus Magnesium Direct Bilirubin AST ALT Alkaline Phosphatase Lactate Dehydrogenase Troponin T C-Reactive Protein Total Protein Albumin Prealbumin Triglycerides Cholesterol LDL Cholesterol Direct HDL Cholesterol Urine pH Urine WBC (Auto) Urine Creatinine Urine Total Protein Fluid Total Protein Vancomycin Trough Rheumatoid Factor Complement C4 Miscellaneous Test Crossmatch 11/30/16 12/01/16 12/01/16 23:35 00:06 03:35 WBC RBC Hgb Hct MCV MCH MCHC RDW Plt Count Lymph % (Auto) [place] % (Auto) Lymph # [place] # Baso # Seg Neutrophils % Seg Neuts % (Manual) Lymphocytes % (Manual) Monocytes % (Manual) Eosinophils % (Manual) Basophils % (Manual) Nucleated RBC % Seg Neutrophils # Seg Neutrophils # Man Lymphocytes # (Manual) Monocytes # (Manual) Eosinophils # (Manual) PT INR Fibrinogen dRVVT Confirm Interp Factor V Activity POC ABG pH POC ABG pCO2 POC ABG pO2 ABG pO2 ABG HCO3 ABG Base Excess ABG Hemoglobin 6.9 L Oxyhemoglobin Sodium Potassium Chloride Carbon Dioxide BUN 58 H Creatinine 1.8 H Glucose 146 H POC Glucose 151 H Lactic Acid Calcium Phosphorus Magnesium Direct Bilirubin AST ALT Alkaline Phosphatase Lactate Dehydrogenase Troponin T C-Reactive Protein Total Protein Albumin Prealbumin Triglycerides Cholesterol LDL Cholesterol Direct HDL Cholesterol Urine pH Urine WBC (Auto) Urine Creatinine Urine Total Protein Fluid Total Protein Vancomycin Trough Rheumatoid Factor Complement C4 Miscellaneous Test Crossmatch 12/01/16 12/01/16 12/01/16 03:35 05:47 11:52 WBC 12.3 H RBC 2.82 L Hgb 7.8 L Hct 23.7 L MCV MCH MCHC RDW 16.7 H Plt Count Lymph % (Auto) [place] % (Auto) 9.8 H Lymph # [place] # 1.2 H Baso # Seg Neutrophils % Seg Neuts % (Manual) Lymphocytes % (Manual) Monocytes % (Manual) Eosinophils % (Manual) Basophils % (Manual) Nucleated RBC % Seg Neutrophils # 8.4 H Seg Neutrophils # Man Lymphocytes # (Manual) Monocytes # (Manual) Eosinophils # (Manual) PT INR Fibrinogen dRVVT Confirm Interp Factor V Activity POC ABG pH POC ABG pCO2 POC ABG pO2 ABG pO2 ABG HCO3 ABG Base Excess ABG Hemoglobin Oxyhemoglobin Sodium Potassium Chloride Carbon Dioxide BUN Creatinine Glucose POC Glucose 152 H 152 H Lactic Acid Calcium Phosphorus Magnesium Direct Bilirubin AST ALT Alkaline Phosphatase Lactate Dehydrogenase Troponin T C-Reactive Protein Total Protein Albumin Prealbumin Triglycerides Cholesterol LDL Cholesterol Direct HDL Cholesterol Urine pH Urine WBC (Auto) Urine Creatinine Urine Total Protein Fluid Total Protein Vancomycin Trough Rheumatoid Factor Complement C4 Miscellaneous Test Crossmatch 12/01/16 12/01/16 12/02/16 17:40 23:41 05:00 WBC RBC Hgb Hct MCV MCH MCHC RDW Plt Count Lymph % (Auto) [place] % (Auto) Lymph # [place] # Baso # Seg Neutrophils % Seg Neuts % (Manual) Lymphocytes % (Manual) Monocytes % (Manual) Eosinophils % (Manual) Basophils % (Manual) Nucleated RBC % Seg Neutrophils # Seg Neutrophils # Man Lymphocytes # (Manual) Monocytes # (Manual) Eosinophils # (Manual) PT INR Fibrinogen dRVVT Confirm Interp Factor V Activity POC ABG pH POC ABG pCO2 POC ABG pO2 ABG pO2 ABG HCO3 ABG Base Excess ABG Hemoglobin Oxyhemoglobin Sodium Potassium Chloride Carbon Dioxide BUN 45 H Creatinine Glucose 115 H POC Glucose 140 H 144 H Lactic Acid Calcium Phosphorus Magnesium Direct Bilirubin AST ALT Alkaline Phosphatase Lactate Dehydrogenase Troponin T C-Reactive Protein Total Protein Albumin Prealbumin Triglycerides Cholesterol LDL Cholesterol Direct HDL Cholesterol Urine pH Urine WBC (Auto) Urine Creatinine Urine Total Protein Fluid Total Protein Vancomycin Trough Rheumatoid Factor Complement C4 Miscellaneous Test Crossmatch 12/02/16 12/02/16 12/02/16 05:31 11:20 17:38 WBC RBC Hgb Hct MCV MCH MCHC RDW Plt Count Lymph % (Auto) [place] % (Auto) Lymph # [place] # Baso # Seg Neutrophils % Seg Neuts % (Manual) Lymphocytes % (Manual) Monocytes % (Manual) Eosinophils % (Manual) Basophils % (Manual) Nucleated RBC % Seg Neutrophils # Seg Neutrophils # Man Lymphocytes # (Manual) Monocytes # (Manual) Eosinophils # (Manual) PT INR Fibrinogen dRVVT Confirm Interp Factor V Activity POC ABG pH POC ABG pCO2 POC ABG pO2 ABG pO2 ABG HCO3 ABG Base Excess ABG Hemoglobin Oxyhemoglobin Sodium Potassium Chloride Carbon Dioxide BUN Creatinine Glucose POC Glucose 136 H 177 H 139 H Lactic Acid Calcium Phosphorus Magnesium Direct Bilirubin AST ALT Alkaline Phosphatase Lactate Dehydrogenase Troponin T C-Reactive Protein Total Protein Albumin Prealbumin Triglycerides Cholesterol LDL Cholesterol Direct HDL Cholesterol Urine pH Urine WBC (Auto) Urine Creatinine Urine Total Protein Fluid Total Protein Vancomycin Trough Rheumatoid Factor Complement C4 Miscellaneous Test Crossmatch 12/02/16 12/03/16 12/03/16 23:43 04:00 04:00 WBC 20.4 H RBC 2.74 L Hgb 7.4 L Hct 23.6 L MCV MCH 27 L MCHC RDW 17.1 H Plt Count Lymph % (Auto) [place] % (Auto) Lymph # [place] # Baso # Seg Neutrophils % Seg Neuts % (Manual) 31.0 L Lymphocytes % (Manual) Monocytes % (Manual) Eosinophils % (Manual) Basophils % (Manual) Nucleated RBC % Seg Neutrophils # Seg Neutrophils # Man Lymphocytes # (Manual) Monocytes # (Manual) Eosinophils # (Manual) PT INR Fibrinogen dRVVT Confirm Interp Factor V Activity POC ABG pH POC ABG pCO2 POC ABG pO2 ABG pO2 ABG HCO3 ABG Base Excess ABG Hemoglobin Oxyhemoglobin Sodium Potassium Chloride Carbon Dioxide BUN 61 H Creatinine 1.6 H Glucose 119 H POC Glucose 158 H Lactic Acid Calcium Phosphorus Magnesium Direct Bilirubin AST ALT Alkaline Phosphatase Lactate Dehydrogenase Troponin T C-Reactive Protein Total Protein Albumin Prealbumin Triglycerides Cholesterol LDL Cholesterol Direct HDL Cholesterol Urine pH Urine WBC (Auto) Urine Creatinine Urine Total Protein Fluid Total Protein Vancomycin Trough Rheumatoid Factor Complement C4 Miscellaneous Test Crossmatch 12/03/16 12/03/16 12/03/16 05:02 12:11 18:16 WBC RBC Hgb Hct MCV MCH MCHC RDW Plt Count Lymph % (Auto) [place] % (Auto) Lymph # [place] # Baso # Seg Neutrophils % Seg Neuts % (Manual) Lymphocytes % (Manual) Monocytes % (Manual) Eosinophils % (Manual) Basophils % (Manual) Nucleated RBC % Seg Neutrophils # Seg Neutrophils # Man Lymphocytes # (Manual) Monocytes # (Manual) Eosinophils # (Manual) PT INR Fibrinogen dRVVT Confirm Interp Factor V Activity POC ABG pH POC ABG pCO2 POC ABG pO2 ABG pO2 ABG HCO3 ABG Base Excess ABG Hemoglobin Oxyhemoglobin Sodium Potassium Chloride Carbon Dioxide BUN Creatinine Glucose POC Glucose 146 H 157 H 124 H Lactic Acid Calcium Phosphorus Magnesium Direct Bilirubin AST ALT Alkaline Phosphatase Lactate Dehydrogenase Troponin T C-Reactive Protein Total Protein Albumin Prealbumin Triglycerides Cholesterol LDL Cholesterol Direct HDL Cholesterol Urine pH Urine WBC (Auto) Urine Creatinine Urine Total Protein Fluid Total Protein Vancomycin Trough Rheumatoid Factor Complement C4 Miscellaneous Test Crossmatch 12/03/16 12/04/16 12/04/16 23:41 04:00 04:45 WBC RBC Hgb Hct MCV MCH MCHC RDW Plt Count Lymph % (Auto) [place] % (Auto) Lymph # [place] # Baso # Seg Neutrophils % Seg Neuts % (Manual) Lymphocytes % (Manual) Monocytes % (Manual) Eosinophils % (Manual) Basophils % (Manual) Nucleated RBC % Seg Neutrophils # Seg Neutrophils # Man Lymphocytes # (Manual) Monocytes # (Manual) Eosinophils # (Manual) PT INR Fibrinogen dRVVT Confirm Interp Factor V Activity POC ABG pH POC ABG pCO2 POC ABG pO2 ABG pO2 ABG HCO3 ABG Base Excess ABG Hemoglobin Oxyhemoglobin Sodium Potassium Chloride Carbon Dioxide BUN 76 H Creatinine 1.6 H Glucose POC Glucose 130 H 136 H Lactic Acid Calcium Phosphorus Magnesium Direct Bilirubin AST ALT Alkaline Phosphatase 155 H Lactate Dehydrogenase Troponin T C-Reactive Protein Total Protein 5.5 L Albumin 1.5 L Prealbumin Triglycerides Cholesterol LDL Cholesterol Direct HDL Cholesterol Urine pH Urine WBC (Auto) Urine Creatinine Urine Total Protein Fluid Total Protein Vancomycin Trough Rheumatoid Factor Complement C4 Miscellaneous Test Crossmatch 12/04/16 12/04/16 12/05/16 12:08 17:23 00:10 WBC RBC Hgb Hct MCV MCH MCHC RDW Plt Count Lymph % (Auto) [place] % (Auto) Lymph # [place] # Baso # Seg Neutrophils % Seg Neuts % (Manual) Lymphocytes % (Manual) Monocytes % (Manual) Eosinophils % (Manual) Basophils % (Manual) Nucleated RBC % Seg Neutrophils # Seg Neutrophils # Man Lymphocytes # (Manual) Monocytes # (Manual) Eosinophils # (Manual) PT INR Fibrinogen dRVVT Confirm Interp Factor V Activity POC ABG pH POC ABG pCO2 POC ABG pO2 ABG pO2 ABG HCO3 ABG Base Excess ABG Hemoglobin Oxyhemoglobin Sodium Potassium Chloride Carbon Dioxide BUN Creatinine Glucose POC Glucose 114 H 129 H 124 H Lactic Acid Calcium Phosphorus Magnesium Direct Bilirubin AST ALT Alkaline Phosphatase Lactate Dehydrogenase Troponin T C-Reactive Protein Total Protein Albumin Prealbumin Triglycerides Cholesterol LDL Cholesterol Direct HDL Cholesterol Urine pH Urine WBC (Auto) Urine Creatinine Urine Total Protein Fluid Total Protein Vancomycin Trough Rheumatoid Factor Complement C4 Miscellaneous Test Crossmatch 12/05/16 12/05/16 12/05/16 05:00 05:00 05:18 WBC RBC Hgb Hct MCV MCH MCHC RDW Plt Count Lymph % (Auto) [place] % (Auto) Lymph # [place] # Baso # Seg Neutrophils % Seg Neuts % (Manual) Lymphocytes % (Manual) Monocytes % (Manual) Eosinophils % (Manual) Basophils % (Manual) Nucleated RBC % Seg Neutrophils # Seg Neutrophils # Man Lymphocytes # (Manual) Monocytes # (Manual) Eosinophils # (Manual) PT INR Fibrinogen dRVVT Confirm Interp Factor V Activity POC ABG pH POC ABG pCO2 POC ABG pO2 ABG pO2 ABG HCO3 ABG Base Excess ABG Hemoglobin Oxyhemoglobin Sodium Potassium Chloride Carbon Dioxide 21 L BUN 85 H Creatinine 1.9 H Glucose 131 H POC Glucose 154 H Lactic Acid Calcium Phosphorus Magnesium Direct Bilirubin AST ALT Alkaline Phosphatase Lactate Dehydrogenase Troponin T C-Reactive Protein 19.30 H Total Protein Albumin Prealbumin Triglycerides Cholesterol LDL Cholesterol Direct HDL Cholesterol Urine pH Urine WBC (Auto) Urine Creatinine Urine Total Protein Fluid Total Protein Vancomycin Trough Rheumatoid Factor Complement C4 Miscellaneous Test Crossmatch 12/05/16 12/05/16 12/05/16 11:43 17:46 23:25 WBC RBC Hgb Hct MCV MCH MCHC RDW Plt Count Lymph % (Auto) [place] % (Auto) Lymph # [place] # Baso # Seg Neutrophils % Seg Neuts % (Manual) Lymphocytes % (Manual) Monocytes % (Manual) Eosinophils % (Manual) Basophils % (Manual) Nucleated RBC % Seg Neutrophils # Seg Neutrophils # Man Lymphocytes # (Manual) Monocytes # (Manual) Eosinophils # (Manual) PT INR Fibrinogen dRVVT Confirm Interp Factor V Activity POC ABG pH POC ABG pCO2 POC ABG pO2 ABG pO2 ABG HCO3 ABG Base Excess ABG Hemoglobin Oxyhemoglobin Sodium Potassium Chloride Carbon Dioxide BUN Creatinine Glucose POC Glucose 117 H 113 H 111 H Lactic Acid Calcium Phosphorus Magnesium Direct Bilirubin AST ALT Alkaline Phosphatase Lactate Dehydrogenase Troponin T C-Reactive Protein Total Protein Albumin Prealbumin Triglycerides Cholesterol LDL Cholesterol Direct HDL Cholesterol Urine pH Urine WBC (Auto) Urine Creatinine Urine Total Protein Fluid Total Protein Vancomycin Trough Rheumatoid Factor Complement C4 Miscellaneous Test Crossmatch 12/05/16 12/06/16 12/06/16 Unknown 04:58 06:00 WBC RBC Hgb Hct MCV MCH MCHC RDW Plt Count Lymph % (Auto) [place] % (Auto) Lymph # [place] # Baso # Seg Neutrophils % Seg Neuts % (Manual) Lymphocytes % (Manual) Monocytes % (Manual) Eosinophils % (Manual) Basophils % (Manual) Nucleated RBC % Seg Neutrophils # Seg Neutrophils # Man Lymphocytes # (Manual) Monocytes # (Manual) Eosinophils # (Manual) PT INR Fibrinogen dRVVT Confirm Interp Factor V Activity POC ABG pH POC ABG pCO2 POC ABG pO2 ABG pO2 75.2 L ABG HCO3 ABG Base Excess -3.4 L ABG Hemoglobin 7.4 L Oxyhemoglobin 94.5 L Sodium Potassium Chloride Carbon Dioxide 20 L BUN 99 H Creatinine 2.1 H Glucose 126 H POC Glucose 145 H Lactic Acid Calcium Phosphorus 4.80 H Magnesium Direct Bilirubin AST ALT Alkaline Phosphatase Lactate Dehydrogenase Troponin T C-Reactive Protein Total Protein Albumin Prealbumin Triglycerides Cholesterol LDL Cholesterol Direct HDL Cholesterol Urine pH Urine WBC (Auto) Urine Creatinine Urine Total Protein Fluid Total Protein Vancomycin Trough Rheumatoid Factor Complement C4 Miscellaneous Test Crossmatch 12/06/16 12/06/16 12/06/16 06:46 11:54 17:55 WBC RBC Hgb 8.3 L Hct 26.4 L MCV MCH MCHC RDW Plt Count Lymph % (Auto) [place] % (Auto) Lymph # [place] # Baso # Seg Neutrophils % Seg Neuts % (Manual) Lymphocytes % (Manual) Monocytes % (Manual) Eosinophils % (Manual) Basophils % (Manual) Nucleated RBC % Seg Neutrophils # Seg Neutrophils # Man Lymphocytes # (Manual) Monocytes # (Manual) Eosinophils # (Manual) PT INR Fibrinogen dRVVT Confirm Interp Factor V Activity POC ABG pH POC ABG pCO2 POC ABG pO2 ABG pO2 ABG HCO3 ABG Base Excess ABG Hemoglobin Oxyhemoglobin Sodium Potassium Chloride Carbon Dioxide BUN Creatinine Glucose POC Glucose 126 H 157 H Lactic Acid Calcium Phosphorus Magnesium Direct Bilirubin AST ALT Alkaline Phosphatase Lactate Dehydrogenase Troponin T C-Reactive Protein Total Protein Albumin Prealbumin Triglycerides Cholesterol LDL Cholesterol Direct HDL Cholesterol Urine pH Urine WBC (Auto) Urine Creatinine Urine Total Protein Fluid Total Protein Vancomycin Trough Rheumatoid Factor Complement C4 Miscellaneous Test Crossmatch 12/06/16 12/07/16 12/07/16 23:59 05:34 06:30 WBC RBC Hgb Hct MCV MCH MCHC RDW Plt Count Lymph % (Auto) [place] % (Auto) Lymph # [place] # Baso # Seg Neutrophils % Seg Neuts % (Manual) Lymphocytes % (Manual) Monocytes % (Manual) Eosinophils % (Manual) Basophils % (Manual) Nucleated RBC % Seg Neutrophils # Seg Neutrophils # Man Lymphocytes # (Manual) Monocytes # (Manual) Eosinophils # (Manual) PT INR Fibrinogen dRVVT Confirm Interp Factor V Activity POC ABG pH POC ABG pCO2 POC ABG pO2 ABG pO2 ABG HCO3 ABG Base Excess ABG Hemoglobin Oxyhemoglobin Sodium Potassium Chloride Carbon Dioxide BUN 67 H Creatinine 1.4 H Glucose 126 H POC Glucose 129 H 129 H Lactic Acid Calcium Phosphorus Magnesium Direct Bilirubin AST ALT Alkaline Phosphatase Lactate Dehydrogenase Troponin T C-Reactive Protein Total Protein Albumin Prealbumin Triglycerides Cholesterol LDL Cholesterol Direct HDL Cholesterol Urine pH Urine WBC (Auto) Urine Creatinine Urine Total Protein Fluid Total Protein Vancomycin Trough Rheumatoid Factor Complement C4 Miscellaneous Test Crossmatch 12/07/16 12/07/16 12/07/16 06:30 08:00 09:45 WBC 18.8 H RBC 2.52 L Hgb 6.9 L 6.8 L Hct 21.2 L 21.1 L MCV MCH 27 L MCHC RDW 18.0 H Plt Count Lymph % (Auto) [place] % (Auto) 9.9 H Lymph # [place] # 1.9 H Baso # Seg Neutrophils % 71.8 H Seg Neuts % (Manual) Lymphocytes % (Manual) Monocytes % (Manual) Eosinophils % (Manual) Basophils % (Manual) Nucleated RBC % Seg Neutrophils # 13.5 H Seg Neutrophils # Man Lymphocytes # (Manual) Monocytes # (Manual) Eosinophils # (Manual) PT INR Fibrinogen dRVVT Confirm Interp Factor V Activity POC ABG pH POC ABG pCO2 POC ABG pO2 ABG pO2 ABG HCO3 ABG Base Excess ABG Hemoglobin Oxyhemoglobin Sodium Potassium Chloride Carbon Dioxide BUN Creatinine Glucose POC Glucose Lactic Acid Calcium Phosphorus Magnesium Direct Bilirubin AST ALT Alkaline Phosphatase Lactate Dehydrogenase Troponin T C-Reactive Protein Total Protein Albumin Prealbumin Triglycerides Cholesterol LDL Cholesterol Direct HDL Cholesterol Urine pH Urine WBC (Auto) Urine Creatinine Urine Total Protein Fluid Total Protein Vancomycin Trough Rheumatoid Factor Complement C4 Miscellaneous Test Crossmatch See Detail 12/07/16 12/07/16 12/07/16 11:44 18:19 23:59 WBC RBC Hgb Hct MCV MCH MCHC RDW Plt Count Lymph % (Auto) [place] % (Auto) Lymph # [place] # Baso # Seg Neutrophils % Seg Neuts % (Manual) Lymphocytes % (Manual) Monocytes % (Manual) Eosinophils % (Manual) Basophils % (Manual) Nucleated RBC % Seg Neutrophils # Seg Neutrophils # Man Lymphocytes # (Manual) Monocytes # (Manual) Eosinophils # (Manual) PT INR Fibrinogen dRVVT Confirm Interp Factor V Activity POC ABG pH POC ABG pCO2 POC ABG pO2 ABG pO2 ABG HCO3 ABG Base Excess ABG Hemoglobin Oxyhemoglobin Sodium Potassium Chloride Carbon Dioxide BUN Creatinine Glucose POC Glucose 137 H 138 H 133 H Lactic Acid Calcium Phosphorus Magnesium Direct Bilirubin AST ALT Alkaline Phosphatase Lactate Dehydrogenase Troponin T C-Reactive Protein Total Protein Albumin Prealbumin Triglycerides Cholesterol LDL Cholesterol Direct HDL Cholesterol Urine pH Urine WBC (Auto) Urine Creatinine Urine Total Protein Fluid Total Protein Vancomycin Trough Rheumatoid Factor Complement C4 Miscellaneous Test Crossmatch 12/08/16 12/08/16 12/08/16 05:25 05:30 05:30 WBC 23.8 H RBC 2.88 L Hgb 8.1 L Hct 24.3 L MCV MCH MCHC RDW 16.7 H Plt Count Lymph % (Auto) [place] % (Auto) Lymph # [place] # Baso # Seg Neutrophils % Seg Neuts % (Manual) 76.0 H Lymphocytes % (Manual) 9.0 L Monocytes % (Manual) 9.0 H Eosinophils % (Manual) Basophils % (Manual) Nucleated RBC % Seg Neutrophils # Seg Neutrophils # Man 18.1 H Lymphocytes # (Manual) Monocytes # (Manual) 2.1 H Eosinophils # (Manual) PT INR Fibrinogen dRVVT Confirm Interp Factor V Activity POC ABG pH POC ABG pCO2 POC ABG pO2 ABG pO2 ABG HCO3 ABG Base Excess ABG Hemoglobin Oxyhemoglobin Sodium Potassium Chloride Carbon Dioxide 21 L BUN 76 H Creatinine 1.6 H Glucose 133 H POC Glucose 177 H Lactic Acid Calcium Phosphorus Magnesium Direct Bilirubin AST ALT Alkaline Phosphatase Lactate Dehydrogenase Troponin T C-Reactive Protein Total Protein Albumin Prealbumin Triglycerides Cholesterol LDL Cholesterol Direct HDL Cholesterol Urine pH Urine WBC (Auto) Urine Creatinine Urine Total Protein Fluid Total Protein Vancomycin Trough Rheumatoid Factor Complement C4 Miscellaneous Test Crossmatch 12/08/16 12/08/16 12/09/16 11:45 18:00 00:00 WBC RBC Hgb Hct MCV MCH MCHC RDW Plt Count Lymph % (Auto) [place] % (Auto) Lymph # [place] # Baso # Seg Neutrophils % Seg Neuts % (Manual) Lymphocytes % (Manual) Monocytes % (Manual) Eosinophils % (Manual) Basophils % (Manual) Nucleated RBC % Seg Neutrophils # Seg Neutrophils # Man Lymphocytes # (Manual) Monocytes # (Manual) Eosinophils # (Manual) PT INR Fibrinogen dRVVT Confirm Interp Factor V Activity POC ABG pH POC ABG pCO2 POC ABG pO2 ABG pO2 ABG HCO3 ABG Base Excess ABG Hemoglobin Oxyhemoglobin Sodium Potassium Chloride Carbon Dioxide BUN Creatinine Glucose POC Glucose 163 H 123 H 137 H Lactic Acid Calcium Phosphorus Magnesium Direct Bilirubin AST ALT Alkaline Phosphatase Lactate Dehydrogenase Troponin T C-Reactive Protein Total Protein Albumin Prealbumin Triglycerides Cholesterol LDL Cholesterol Direct HDL Cholesterol Urine pH Urine WBC (Auto) Urine Creatinine Urine Total Protein Fluid Total Protein Vancomycin Trough Rheumatoid Factor Complement C4 Miscellaneous Test Crossmatch 12/09/16 12/09/16 12/09/16 05:34 06:00 06:00 WBC 15.5 H RBC 2.87 L Hgb 8.0 L Hct 24.2 L MCV MCH MCHC RDW 17.2 H Plt Count Lymph % (Auto) [place] % (Auto) 11.6 H Lymph # [place] # 1.8 H Baso # Seg Neutrophils % 70.8 H Seg Neuts % (Manual) Lymphocytes % (Manual) Monocytes % (Manual) Eosinophils % (Manual) Basophils % (Manual) Nucleated RBC % Seg Neutrophils # 11.0 H Seg Neutrophils # Man Lymphocytes # (Manual) Monocytes # (Manual) Eosinophils # (Manual) PT INR Fibrinogen dRVVT Confirm Interp Factor V Activity POC ABG pH POC ABG pCO2 POC ABG pO2 ABG pO2 ABG HCO3 ABG Base Excess ABG Hemoglobin Oxyhemoglobin Sodium Potassium Chloride Carbon Dioxide BUN 51 H Creatinine Glucose 117 H POC Glucose 136 H Lactic Acid Calcium Phosphorus Magnesium Direct Bilirubin AST ALT Alkaline Phosphatase Lactate Dehydrogenase Troponin T C-Reactive Protein Total Protein Albumin Prealbumin Triglycerides Cholesterol LDL Cholesterol Direct HDL Cholesterol Urine pH Urine WBC (Auto) Urine Creatinine Urine Total Protein Fluid Total Protein Vancomycin Trough Rheumatoid Factor Complement C4 Miscellaneous Test Crossmatch 12/09/16 12/09/16 12/09/16 12:29 17:52 23:10 WBC RBC Hgb Hct MCV MCH MCHC RDW Plt Count Lymph % (Auto) [place] % (Auto) Lymph # [place] # Baso # Seg Neutrophils % Seg Neuts % (Manual) Lymphocytes % (Manual) Monocytes % (Manual) Eosinophils % (Manual) Basophils % (Manual) Nucleated RBC % Seg Neutrophils # Seg Neutrophils # Man Lymphocytes # (Manual) Monocytes # (Manual) Eosinophils # (Manual) PT INR Fibrinogen dRVVT Confirm Interp Factor V Activity POC ABG pH POC ABG pCO2 POC ABG pO2 ABG pO2 ABG HCO3 ABG Base Excess ABG Hemoglobin Oxyhemoglobin Sodium Potassium Chloride Carbon Dioxide BUN Creatinine Glucose POC Glucose 139 H 140 H 129 H Lactic Acid Calcium Phosphorus Magnesium Direct Bilirubin AST ALT Alkaline Phosphatase Lactate Dehydrogenase Troponin T C-Reactive Protein Total Protein Albumin Prealbumin Triglycerides Cholesterol LDL Cholesterol Direct HDL Cholesterol Urine pH Urine WBC (Auto) Urine Creatinine Urine Total Protein Fluid Total Protein Vancomycin Trough Rheumatoid Factor Complement C4 Miscellaneous Test Crossmatch 12/10/16 12/10/16 12/10/16 05:00 05:00 06:54 WBC 15.7 H RBC 2.87 L Hgb 8.2 L Hct 24.4 L MCV MCH MCHC RDW 17.2 H Plt Count Lymph % (Auto) [place] % (Auto) 8.3 H Lymph # [place] # 1.3 H Baso # Seg Neutrophils % 72.8 H Seg Neuts % (Manual) Lymphocytes % (Manual) Monocytes % (Manual) Eosinophils % (Manual) Basophils % (Manual) Nucleated RBC % Seg Neutrophils # 11.4 H Seg Neutrophils # Man Lymphocytes # (Manual) Monocytes # (Manual) Eosinophils # (Manual) PT INR Fibrinogen dRVVT Confirm Interp Factor V Activity POC ABG pH POC ABG pCO2 POC ABG pO2 ABG pO2 ABG HCO3 ABG Base Excess ABG Hemoglobin Oxyhemoglobin Sodium Potassium Chloride Carbon Dioxide BUN 64 H Creatinine 1.4 H Glucose 134 H POC Glucose 154 H Lactic Acid Calcium Phosphorus Magnesium Direct Bilirubin AST ALT Alkaline Phosphatase Lactate Dehydrogenase Troponin T C-Reactive Protein Total Protein Albumin Prealbumin Triglycerides Cholesterol LDL Cholesterol Direct HDL Cholesterol Urine pH Urine WBC (Auto) Urine Creatinine Urine Total Protein Fluid Total Protein Vancomycin Trough Rheumatoid Factor Complement C4 Miscellaneous Test Crossmatch 12/10/16 12/10/16 12/10/16 11:58 17:29 23:52 WBC RBC Hgb Hct MCV MCH MCHC RDW Plt Count Lymph % (Auto) [place] % (Auto) Lymph # [place] # Baso # Seg Neutrophils % Seg Neuts % (Manual) Lymphocytes % (Manual) Monocytes % (Manual) Eosinophils % (Manual) Basophils % (Manual) Nucleated RBC % Seg Neutrophils # Seg Neutrophils # Man Lymphocytes # (Manual) Monocytes # (Manual) Eosinophils # (Manual) PT INR Fibrinogen dRVVT Confirm Interp Factor V Activity POC ABG pH POC ABG pCO2 POC ABG pO2 ABG pO2 ABG HCO3 ABG Base Excess ABG Hemoglobin Oxyhemoglobin Sodium Potassium Chloride Carbon Dioxide BUN Creatinine Glucose POC Glucose 144 H 163 H 125 H Lactic Acid Calcium Phosphorus Magnesium Direct Bilirubin AST ALT Alkaline Phosphatase Lactate Dehydrogenase Troponin T C-Reactive Protein Total Protein Albumin Prealbumin Triglycerides Cholesterol LDL Cholesterol Direct HDL Cholesterol Urine pH Urine WBC (Auto) Urine Creatinine Urine Total Protein Fluid Total Protein Vancomycin Trough Rheumatoid Factor Complement C4 Miscellaneous Test Crossmatch 12/11/16 12/11/16 12/11/16 05:38 06:30 06:30 WBC 14.4 H RBC 2.76 L Hgb 7.7 L Hct 23.4 L MCV MCH MCHC RDW 17.2 H Plt Count Lymph % (Auto) [place] % (Auto) 8.8 H Lymph # [place] # 1.3 H Baso # Seg Neutrophils % 72.5 H Seg Neuts % (Manual) Lymphocytes % (Manual) Monocytes % (Manual) Eosinophils % (Manual) Basophils % (Manual) Nucleated RBC % Seg Neutrophils # 10.5 H Seg Neutrophils # Man Lymphocytes # (Manual) Monocytes # (Manual) Eosinophils # (Manual) PT INR Fibrinogen dRVVT Confirm Interp Factor V Activity POC ABG pH POC ABG pCO2 POC ABG pO2 ABG pO2 ABG HCO3 ABG Base Excess ABG Hemoglobin Oxyhemoglobin Sodium Potassium Chloride Carbon Dioxide BUN 43 H Creatinine Glucose 124 H POC Glucose 141 H Lactic Acid Calcium 8.3 L Phosphorus Magnesium 1.60 L Direct Bilirubin AST ALT Alkaline Phosphatase Lactate Dehydrogenase Troponin T C-Reactive Protein Total Protein Albumin Prealbumin Triglycerides Cholesterol LDL Cholesterol Direct HDL Cholesterol Urine pH Urine WBC (Auto) Urine Creatinine Urine Total Protein Fluid Total Protein Vancomycin Trough Rheumatoid Factor Complement C4 Miscellaneous Test Crossmatch 12/11/16 12/11/16 12/11/16 11:15 17:59 23:48 WBC RBC Hgb Hct MCV MCH MCHC RDW Plt Count Lymph % (Auto) [place] % (Auto) Lymph # [place] # Baso # Seg Neutrophils % Seg Neuts % (Manual) Lymphocytes % (Manual) Monocytes % (Manual) Eosinophils % (Manual) Basophils % (Manual) Nucleated RBC % Seg Neutrophils # Seg Neutrophils # Man Lymphocytes # (Manual) Monocytes # (Manual) Eosinophils # (Manual) PT INR Fibrinogen dRVVT Confirm Interp Factor V Activity POC ABG pH POC ABG pCO2 POC ABG pO2 ABG pO2 ABG HCO3 ABG Base Excess ABG Hemoglobin Oxyhemoglobin Sodium Potassium Chloride Carbon Dioxide BUN Creatinine Glucose POC Glucose 188 H 106 H 119 H Lactic Acid Calcium Phosphorus Magnesium Direct Bilirubin AST ALT Alkaline Phosphatase Lactate Dehydrogenase Troponin T C-Reactive Protein Total Protein Albumin Prealbumin Triglycerides Cholesterol LDL Cholesterol Direct HDL Cholesterol Urine pH Urine WBC (Auto) Urine Creatinine Urine Total Protein Fluid Total Protein Vancomycin Trough Rheumatoid Factor Complement C4 Miscellaneous Test Crossmatch 12/12/16 12/12/16 12/12/16 05:00 06:01 12:20 WBC 16.7 H RBC 2.87 L Hgb 8.0 L Hct 24.2 L MCV MCH MCHC RDW 17.6 H Plt Count Lymph % (Auto) [place] % (Auto) Lymph # [place] # 1.2 H Baso # Seg Neutrophils % 75.3 H Seg Neuts % (Manual) Lymphocytes % (Manual) Monocytes % (Manual) Eosinophils % (Manual) Basophils % (Manual) Nucleated RBC % Seg Neutrophils # 12.6 H Seg Neutrophils # Man Lymphocytes # (Manual) Monocytes # (Manual) Eosinophils # (Manual) PT INR Fibrinogen dRVVT Confirm Interp Factor V Activity POC ABG pH POC ABG pCO2 POC ABG pO2 ABG pO2 ABG HCO3 ABG Base Excess ABG Hemoglobin Oxyhemoglobin Sodium Potassium Chloride Carbon Dioxide BUN Creatinine Glucose POC Glucose 134 H 149 H Lactic Acid Calcium Phosphorus Magnesium Direct Bilirubin AST ALT Alkaline Phosphatase Lactate Dehydrogenase Troponin T C-Reactive Protein Total Protein Albumin Prealbumin Triglycerides Cholesterol LDL Cholesterol Direct HDL Cholesterol Urine pH Urine WBC (Auto) Urine Creatinine Urine Total Protein Fluid Total Protein Vancomycin Trough Rheumatoid Factor Complement C4 Miscellaneous Test Crossmatch 12/12/16 12/12/16 12/12/16 17:38 23:01 Unknown WBC RBC Hgb Hct MCV MCH MCHC RDW Plt Count Lymph % (Auto) [place] % (Auto) Lymph # [place] # Baso # Seg Neutrophils % Seg Neuts % (Manual) Lymphocytes % (Manual) Monocytes % (Manual) Eosinophils % (Manual) Basophils % (Manual) Nucleated RBC % Seg Neutrophils # Seg Neutrophils # Man Lymphocytes # (Manual) Monocytes # (Manual) Eosinophils # (Manual) PT INR Fibrinogen dRVVT Confirm Interp Factor V Activity POC ABG pH POC ABG pCO2 POC ABG pO2 ABG pO2 ABG HCO3 ABG Base Excess ABG Hemoglobin Oxyhemoglobin Sodium Potassium Chloride Carbon Dioxide BUN 60 H Creatinine 1.3 H Glucose 126 H POC Glucose 127 H 144 H Lactic Acid Calcium Phosphorus Magnesium Direct Bilirubin AST ALT Alkaline Phosphatase Lactate Dehydrogenase Troponin T C-Reactive Protein Total Protein Albumin Prealbumin Triglycerides Cholesterol LDL Cholesterol Direct HDL Cholesterol Urine pH Urine WBC (Auto) Urine Creatinine Urine Total Protein Fluid Total Protein Vancomycin Trough Rheumatoid Factor Complement C4 Miscellaneous Test Crossmatch 12/13/16 12/13/16 12/13/16 04:00 04:00 05:19 WBC 18.7 H RBC 2.89 L Hgb 8.3 L Hct 24.6 L MCV MCH MCHC RDW 17.5 H Plt Count Lymph % (Auto) [place] % (Auto) Lymph # [place] # 1.3 H Baso # Seg Neutrophils % 71.5 H Seg Neuts % (Manual) Lymphocytes % (Manual) Monocytes % (Manual) Eosinophils % (Manual) Basophils % (Manual) Nucleated RBC % Seg Neutrophils # 13.4 H Seg Neutrophils # Man Lymphocytes # (Manual) Monocytes # (Manual) Eosinophils # (Manual) PT INR Fibrinogen dRVVT Confirm Interp Factor V Activity POC ABG pH POC ABG pCO2 POC ABG pO2 ABG pO2 ABG HCO3 ABG Base Excess ABG Hemoglobin Oxyhemoglobin Sodium Potassium Chloride Carbon Dioxide BUN 73 H Creatinine 1.5 H Glucose 141 H POC Glucose 171 H Lactic Acid Calcium Phosphorus Magnesium Direct Bilirubin AST ALT Alkaline Phosphatase Lactate Dehydrogenase Troponin T C-Reactive Protein Total Protein Albumin Prealbumin Triglycerides Cholesterol LDL Cholesterol Direct HDL Cholesterol Urine pH Urine WBC (Auto) Urine Creatinine Urine Total Protein Fluid Total Protein Vancomycin Trough Rheumatoid Factor Complement C4 Miscellaneous Test Crossmatch 12/13/16 12/13/16 12/14/16 12:28 16:48 00:01 WBC RBC Hgb Hct MCV MCH MCHC RDW Plt Count Lymph % (Auto) [place] % (Auto) Lymph # [place] # Baso # Seg Neutrophils % Seg Neuts % (Manual) Lymphocytes % (Manual) Monocytes % (Manual) Eosinophils % (Manual) Basophils % (Manual) Nucleated RBC % Seg Neutrophils # Seg Neutrophils # Man Lymphocytes # (Manual) Monocytes # (Manual) Eosinophils # (Manual) PT INR Fibrinogen dRVVT Confirm Interp Factor V Activity POC ABG pH POC ABG pCO2 POC ABG pO2 ABG pO2 ABG HCO3 ABG Base Excess ABG Hemoglobin Oxyhemoglobin Sodium Potassium Chloride Carbon Dioxide BUN Creatinine Glucose POC Glucose 206 H 173 H 139 H Lactic Acid Calcium Phosphorus Magnesium Direct Bilirubin AST ALT Alkaline Phosphatase Lactate Dehydrogenase Troponin T C-Reactive Protein Total Protein Albumin Prealbumin Triglycerides Cholesterol LDL Cholesterol Direct HDL Cholesterol Urine pH Urine WBC (Auto) Urine Creatinine Urine Total Protein Fluid Total Protein Vancomycin Trough Rheumatoid Factor Complement C4 Miscellaneous Test Crossmatch 12/14/16 12/14/16 12/14/16 05:16 06:10 11:17 WBC RBC Hgb Hct MCV MCH MCHC RDW Plt Count Lymph % (Auto) [place] % (Auto) Lymph # [place] # Baso # Seg Neutrophils % Seg Neuts % (Manual) Lymphocytes % (Manual) Monocytes % (Manual) Eosinophils % (Manual) Basophils % (Manual) Nucleated RBC % Seg Neutrophils # Seg Neutrophils # Man Lymphocytes # (Manual) Monocytes # (Manual) Eosinophils # (Manual) PT INR Fibrinogen dRVVT Confirm Interp Factor V Activity POC ABG pH POC ABG pCO2 POC ABG pO2 ABG pO2 ABG HCO3 ABG Base Excess ABG Hemoglobin Oxyhemoglobin Sodium Potassium Chloride Carbon Dioxide BUN 57 H Creatinine 1.4 H Glucose 135 H POC Glucose 158 H 137 H Lactic Acid Calcium Phosphorus Magnesium Direct Bilirubin AST ALT Alkaline Phosphatase Lactate Dehydrogenase Troponin T C-Reactive Protein Total Protein Albumin Prealbumin Triglycerides Cholesterol LDL Cholesterol Direct HDL Cholesterol Urine pH Urine WBC (Auto) Urine Creatinine Urine Total Protein Fluid Total Protein Vancomycin Trough Rheumatoid Factor Complement C4 Miscellaneous Test Crossmatch 12/14/16 12/14/16 12/15/16 17:52 23:27 04:00 WBC RBC Hgb Hct MCV MCH MCHC RDW Plt Count Lymph % (Auto) [place] % (Auto) Lymph # [place] # Baso # Seg Neutrophils % Seg Neuts % (Manual) Lymphocytes % (Manual) Monocytes % (Manual) Eosinophils % (Manual) Basophils % (Manual) Nucleated RBC % Seg Neutrophils # Seg Neutrophils # Man Lymphocytes # (Manual) Monocytes # (Manual) Eosinophils # (Manual) PT INR Fibrinogen dRVVT Confirm Interp Factor V Activity POC ABG pH POC ABG pCO2 POC ABG pO2 ABG pO2 ABG HCO3 ABG Base Excess ABG Hemoglobin Oxyhemoglobin Sodium Potassium Chloride 97.9 L Carbon Dioxide BUN 75 H Creatinine 1.6 H Glucose 122 H POC Glucose 149 H 163 H Lactic Acid Calcium Phosphorus 5.20 H Magnesium Direct Bilirubin AST ALT Alkaline Phosphatase Lactate Dehydrogenase Troponin T C-Reactive Protein Total Protein Albumin Prealbumin Triglycerides Cholesterol LDL Cholesterol Direct HDL Cholesterol Urine pH Urine WBC (Auto) Urine Creatinine Urine Total Protein Fluid Total Protein Vancomycin Trough Rheumatoid Factor Complement C4 Miscellaneous Test Crossmatch 12/15/16 11:24 WBC RBC Hgb Hct MCV MCH MCHC RDW Plt Count Lymph % (Auto) [place] % (Auto) Lymph # [place] # Baso # Seg Neutrophils % Seg Neuts % (Manual) Lymphocytes % (Manual) Monocytes % (Manual) Eosinophils % (Manual) Basophils % (Manual) Nucleated RBC % Seg Neutrophils # Seg Neutrophils # Man Lymphocytes # (Manual) Monocytes # (Manual) Eosinophils # (Manual) PT INR Fibrinogen dRVVT Confirm Interp Factor V Activity POC ABG pH POC ABG pCO2 POC ABG pO2 ABG pO2 ABG HCO3 ABG Base Excess ABG Hemoglobin Oxyhemoglobin Sodium Potassium Chloride Carbon Dioxide BUN Creatinine Glucose POC Glucose 146 H Lactic Acid Calcium Phosphorus Magnesium Direct Bilirubin AST ALT Alkaline Phosphatase Lactate Dehydrogenase Troponin T C-Reactive Protein Total Protein Albumin Prealbumin Triglycerides Cholesterol LDL Cholesterol Direct HDL Cholesterol Urine pH Urine WBC (Auto) Urine Creatinine Urine Total Protein Fluid Total Protein Vancomycin Trough Rheumatoid Factor Complement C4 Miscellaneous Test Crossmatch Allied health notes reviewed: RT
--- NOTE | 2016-12-15 15:36 | Progress Note ---
Assessment and Plan Assessment and Plan --Severe Sepsis with septic shock, recurrent. Patient with multiple episodes of sepsis. Initial episode due to presumed aspiration pneumonia and septic episode on 09/23 from candidemia then a third episode from peritonitis from gastric perforation from dislodged PEG +/-UTI. Patient was also noted to have had Candidemia with Blood cultures positive for Silvia albicans 09/23, 09/25 but negative on 09/30. Antibiotic discontinued on 12/05 per ID. patient is s/p R thoracentesis on 11/14, 240cc of serous fluid removed, cx of fluid was negative. Also, Stool negative for C. difficile --Surgical wound infection/gram-negative sepsis/candidemia/peritonitis. Continue wound care to ostomy sites --Acute hypoxic respiratory failure, status post tracheostomy Patient placed back on ventilation. Patient currently with CPAP mode. Patient failed T-piece trials. Tracheostomy tube leak. Pulmonary following --Acute massive CVA with mass effect; continue antiplatelets and statins CT showed continued evolution of left MCA infarct with slight mass effect and edema, and there is no hemorrhage -PRINCE showed hyperdynamic ventricle with ef of 75%, neither clot nor septal defect seen -MRA Brain shows near complete occlusion of M2 and M3 of the left MCA carotid doppler negative -Echo shows preserved systolic function but does show some left ventricular diastolic dysfunction -continue asa and statin --Oliguric acute kidney injury. Etiology secondary to ATN on CKD. Baseline creatinine is approximately 1.7. Today's BUN/Cr is 75/1.6 --Paroxysmal atrial fibrillation with rapid ventricular rate, failed cardioversion Continue current medications, Not a candidate for anticoagulation secondary to anemia, thrombocytopenia and massive CVA --Anemia; probably secondary to GI bleeding Patient received multiple units of PRBC in the past, hemoglobin currently stable -Toxic metabolic encephalopathy; supportive care --Diabetes mellitus type 2, Insulin/SSI --Severe protein caloric malnutrition, cont TPN --s/p Thrombocytopenia. Now resolved --DVT prophylaxis, SCDs, no pharmacological agent given anemia , thrombocytopenia, massive stroke --Full code status, very poor prognosis Subjective Date of service: 12/15/16 Principal diagnosis: Acute resp failure on MVS; S/P Acute CVA; Acute Encephalopathy; JUANITA Interval history: No interval change Objective - Constitutional Vitals: Vital Signs - 12hr 12/15/16 12/15/16 12/15/16 03:40 04:00 04:30 Temperature 97.8 F Pulse Rate 107 H 109 H 108 H Pulse Rate [ Anterior Bilateral Throughout] Pulse Rate [ 109 H From Monitor] Respiratory 30 H 25 H Rate Respiratory Rate [Anterior Bilateral Throughout] Blood Pressure 118/70 121/74 122/74 O2 Sat by Pulse 95 95 96 Oximetry O2 Sat by Pulse Oximetry [ Assessment] 12/15/16 12/15/16 12/15/16 05:00 05:30 06:00 Temperature Pulse Rate 102 H 110 H 108 H Pulse Rate [ Anterior Bilateral Throughout] Pulse Rate [ From Monitor] Respiratory 26 H 28 H 23 Rate Respiratory Rate [Anterior Bilateral Throughout] Blood Pressure 103/63 125/74 115/65 O2 Sat by Pulse 96 96 97 Oximetry O2 Sat by Pulse Oximetry [ Assessment] 12/15/16 12/15/16 12/15/16 06:23 06:30 07:00 Temperature Pulse Rate 105 H 108 H 109 H Pulse Rate [ Anterior Bilateral Throughout] Pulse Rate [ From Monitor] Respiratory 29 H 27 H Rate Respiratory Rate [Anterior Bilateral Throughout] Blood Pressure 110/68 115/69 118/71 O2 Sat by Pulse 97 97 Oximetry O2 Sat by Pulse Oximetry [ Assessment] 12/15/16 12/15/16 12/15/16 07:30 07:55 08:00 Temperature 98.6 F Pulse Rate 110 H 115 H Pulse Rate [ Anterior Bilateral Throughout] Pulse Rate [ 115 H From Monitor] Respiratory 28 H 26 H Rate Respiratory Rate [Anterior Bilateral Throughout] Blood Pressure 113/65 123/71 O2 Sat by Pulse 97 97 Oximetry O2 Sat by Pulse 97 Oximetry [ Assessment] 12/15/16 12/15/16 12/15/16 08:30 08:40 08:50 Temperature Pulse Rate 116 H 117 H Pulse Rate [ 115 H 114 H Anterior Bilateral Throughout] Pulse Rate [ From Monitor] Respiratory 27 H Rate Respiratory 19 20 Rate [Anterior Bilateral Throughout] Blood Pressure 114/70 115/68 O2 Sat by Pulse 95 96 Oximetry O2 Sat by Pulse Oximetry [ Assessment] 12/15/16 12/15/16 12/15/16 09:00 09:30 10:00 Temperature Pulse Rate 117 H 118 H 123 H Pulse Rate [ Anterior Bilateral Throughout] Pulse Rate [ From Monitor] Respiratory 26 H 20 18 Rate Respiratory Rate [Anterior Bilateral Throughout] Blood Pressure 112/66 120/70 117/63 O2 Sat by Pulse 95 95 93 Oximetry O2 Sat by Pulse Oximetry [ Assessment] 12/15/16 12/15/16 12/15/16 10:30 11:00 11:20 Temperature Pulse Rate 120 H 122 H 118 H Pulse Rate [ Anterior Bilateral Throughout] Pulse Rate [ From Monitor] Respiratory 30 H 31 H 42 H Rate Respiratory Rate [Anterior Bilateral Throughout] Blood Pressure 107/62 120/70 113/65 O2 Sat by Pulse 94 95 97 Oximetry O2 Sat by Pulse Oximetry [ Assessment] 12/15/16 12/15/16 12/15/16 11:30 12:00 12:30 Temperature 98.4 F Pulse Rate 120 H 119 H 120 H Pulse Rate [ Anterior Bilateral Throughout] Pulse Rate [ 119 H From Monitor] Respiratory 32 H 23 17 Rate Respiratory Rate [Anterior Bilateral Throughout] Blood Pressure 120/74 114/67 116/65 O2 Sat by Pulse 97 97 96 Oximetry O2 Sat by Pulse Oximetry [ Assessment] 12/15/16 12/15/16 12/15/16 12:56 13:00 13:30 Temperature Pulse Rate 120 H 122 H 121 H Pulse Rate [ Anterior Bilateral Throughout] Pulse Rate [ From Monitor] Respiratory 17 31 H Rate Respiratory Rate [Anterior Bilateral Throughout] Blood Pressure 106/61 116/71 116/65 O2 Sat by Pulse 96 96 97 Oximetry O2 Sat by Pulse Oximetry [ Assessment] 12/15/16 12/15/16 12/15/16 14:00 14:04 14:30 Temperature 98.4 F Pulse Rate 121 H 127 H Pulse Rate [ 120 H Anterior Bilateral Throughout] Pulse Rate [ From Monitor] Respiratory 33 H 17 Rate Respiratory 20 Rate [Anterior Bilateral Throughout] Blood Pressure 108/61 114/65 O2 Sat by Pulse 88 88 Oximetry O2 Sat by Pulse Oximetry [ Assessment] 12/15/16 12/15/16 14:47 15:00 Temperature Pulse Rate 120 H 126 H Pulse Rate [ Anterior Bilateral Throughout] Pulse Rate [ From Monitor] Respiratory 21 Rate Respiratory Rate [Anterior Bilateral Throughout] Blood Pressure 112/70 117/57 O2 Sat by Pulse 89 Oximetry O2 Sat by Pulse Oximetry [ Assessment] General appearance: Present: no acute distress, well-nourished - EENT Eyes: PERRL, EOM intact ENT: hearing intact, clear oral mucosa Ears: bilateral: normal - Neck Neck: supple, normal ROM - Respiratory Respiratory effort: normal Respiratory: bilateral: CTA - Breasts Breasts: normal - Cardiovascular Rhythm: regular Heart Sounds: Present: S1 & S2. Absent: gallop, rub Extremities: pulses intact, No edema, normal color, Full ROM - Gastrointestinal General gastrointestinal: Present: soft, non-tender, non-distended, normal bowel sounds - Genitourinary Female genitourinary: normal - Integumentary Integumentary: clear, warm, dry - Musculoskeletal Musculoskeletal: 1, strength equal bilaterally - Neurologic Neurologic: moves all extremities - Psychiatric Psychiatric: memory intact, appropriate mood/affect, intact judgment & insight - Labs CBC & Chem 7: 12/13/16 04:00 12/15/16 04:00 Labs: Abnormal lab results 12/14/16 12/14/16 12/15/16 Range/Units 17:52 23:27 04:00 Chloride 97.9 L (98-107) mmol/L BUN 75 H (7-17) mg/dL Creatinine 1.6 H (0.7-1.2) mg/dL Glucose 122 H (65-100) mg/dL POC Glucose 149 H 163 H (70-105) Phosphorus 5.20 H (2.5-4.5) mg/dL 12/15/16 12/15/16 Range/Units 05:50 11:24 Chloride (98-107) mmol/L BUN (7-17) mg/dL Creatinine (0.7-1.2) mg/dL Glucose (65-100) mg/dL POC Glucose 150 H 146 H (70-105) Phosphorus (2.5-4.5) mg/dL
[2016-12-15] MEDS ORDERED: TPN ADULT IV SCH (20:00)
[2016-12-16] MEDS: HumuLIN R SUB-Q SCH ×4 (00:21→18:02)
[2016-12-16] MEDS: DUONEB *Not for PRN Use IH SCH ×4 (01:46→19:16)
[2016-12-16] MEDS: APRESOLINE PO SCH ×4 (04:39→22:20)
[2016-12-16] MEDS: MORPHINE IV PRN ×2 (04:40→08:23)
[2016-12-16] MEDS: ROBINUL PO SCH ×3 (06:04→22:18)
[2016-12-16] MEDS: LOPRESSOR PO SCH ×4 (06:06→18:30)
[2016-12-16] MEDS: ZOFRAN IV PRN (08:17)
[2016-12-16] MEDS: HEPARIN SUB-Q SCH ×2 (09:13→22:19)
[2016-12-16] MEDS: NORVASC PO SCH (09:15)
[2016-12-16] MEDS: PROTONIX FEEDTUBE SCH (09:18)
--- NOTE | 2016-12-16 12:16 | Progress Note ---
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 * Her tachycardia seems to be better . * Her PermCath is no longer being used for IV access at this time * monitor for renal recovery * Rate control per cardiology * Dose medications for renal function * Avoid potential nephrotoxins Subjective Date of service: 12/16/16 Principal diagnosis: Acute resp failure on MVS; S/P Acute CVA; Acute Encephalopathy; JUANITA Interval history: Patient remains in the ICU. Currently on 28% FiO2. Resting comfortably. Objective - Vital Signs Vital signs: Vital Signs - 12hr 12/16/16 12/16/16 12/16/16 00:15 00:30 00:45 Temperature Pulse Rate 119 H 118 H 116 H Pulse Rate [ Anterior Bilateral Throughout] Respiratory 21 23 24 Rate Respiratory Rate [Anterior Bilateral Throughout] Blood Pressure 102/66 100/59 89/51 O2 Sat by Pulse 93 93 94 Oximetry O2 Sat by Pulse Oximetry [ Assessment] 12/16/16 12/16/16 12/16/16 01:00 01:15 01:30 Temperature Pulse Rate 117 H 115 H 113 H Pulse Rate [ Anterior Bilateral Throughout] Respiratory 22 22 21 Rate Respiratory Rate [Anterior Bilateral Throughout] Blood Pressure 97/64 94/54 94/52 O2 Sat by Pulse 94 94 94 Oximetry O2 Sat by Pulse Oximetry [ Assessment] 12/16/16 12/16/16 12/16/16 01:45 01:46 01:52 Temperature Pulse Rate 117 H Pulse Rate [ 117 H 121 H Anterior Bilateral Throughout] Respiratory 26 H Rate Respiratory 25 H 15 Rate [Anterior Bilateral Throughout] Blood Pressure 101/62 O2 Sat by Pulse 93 Oximetry O2 Sat by Pulse Oximetry [ Assessment] 12/16/16 12/16/16 12/16/16 02:00 02:15 02:30 Temperature Pulse Rate 126 H 125 H 118 H Pulse Rate [ Anterior Bilateral Throughout] Respiratory 19 15 17 Rate Respiratory Rate [Anterior Bilateral Throughout] Blood Pressure 116/67 102/58 97/59 O2 Sat by Pulse 96 95 95 Oximetry O2 Sat by Pulse Oximetry [ Assessment] 12/16/16 12/16/16 12/16/16 02:45 02:57 03:00 Temperature Pulse Rate 122 H 121 H 122 H Pulse Rate [ Anterior Bilateral Throughout] Respiratory 16 25 H Rate Respiratory Rate [Anterior Bilateral Throughout] Blood Pressure 105/61 105/61 105/61 O2 Sat by Pulse 96 96 96 Oximetry O2 Sat by Pulse Oximetry [ Assessment] 12/16/16 12/16/16 12/16/16 03:15 03:30 03:45 Temperature Pulse Rate 121 H 125 H 122 H Pulse Rate [ Anterior Bilateral Throughout] Respiratory 24 21 23 Rate Respiratory Rate [Anterior Bilateral Throughout] Blood Pressure 106/64 111/73 106/65 O2 Sat by Pulse 96 98 97 Oximetry O2 Sat by Pulse Oximetry [ Assessment] 12/16/16 12/16/16 12/16/16 04:00 04:15 04:30 Temperature 98.9 F Pulse Rate 126 H 125 H 123 H Pulse Rate [ Anterior Bilateral Throughout] Respiratory 26 H 25 H 22 Rate Respiratory Rate [Anterior Bilateral Throughout] Blood Pressure 111/64 106/65 110/65 O2 Sat by Pulse 96 97 96 Oximetry O2 Sat by Pulse Oximetry [ Assessment] 12/16/16 12/16/16 12/16/16 04:39 04:45 05:00 Temperature Pulse Rate 120 H 130 H 122 H Pulse Rate [ Anterior Bilateral Throughout] Respiratory 16 19 Rate Respiratory Rate [Anterior Bilateral Throughout] Blood Pressure 90/60 114/65 103/63 O2 Sat by Pulse 97 97 Oximetry O2 Sat by Pulse Oximetry [ Assessment] 12/16/16 12/16/16 12/16/16 05:15 05:30 05:45 Temperature Pulse Rate 121 H 122 H 126 H Pulse Rate [ Anterior Bilateral Throughout] Respiratory 16 11 L 26 H Rate Respiratory Rate [Anterior Bilateral Throughout] Blood Pressure 107/66 109/71 120/75 O2 Sat by Pulse 97 97 97 Oximetry O2 Sat by Pulse Oximetry [ Assessment] 12/16/16 12/16/16 12/16/16 06:00 06:06 06:15 Temperature Pulse Rate 144 H 118 H 130 H Pulse Rate [ Anterior Bilateral Throughout] Respiratory 30 H 23 Rate Respiratory Rate [Anterior Bilateral Throughout] Blood Pressure 122/57 98/64 110/59 O2 Sat by Pulse 92 93 Oximetry O2 Sat by Pulse Oximetry [ Assessment] 12/16/16 12/16/16 12/16/16 06:30 06:45 07:00 Temperature Pulse Rate 144 H 153 H 141 H Pulse Rate [ Anterior Bilateral Throughout] Respiratory 35 H 28 H Rate Respiratory Rate [Anterior Bilateral Throughout] Blood Pressure 111/64 110/59 103/64 O2 Sat by Pulse 79 L 89 Oximetry O2 Sat by Pulse Oximetry [ Assessment] 12/16/16 12/16/16 12/16/16 07:01 07:10 07:26 Temperature Pulse Rate 148 H 152 H Pulse Rate [ Anterior Bilateral Throughout] Respiratory 27 H 33 H Rate Respiratory Rate [Anterior Bilateral Throughout] Blood Pressure 99/56 103/64 O2 Sat by Pulse 91 Oximetry O2 Sat by Pulse Oximetry [ Assessment] 12/16/16 12/16/16 12/16/16 08:00 08:23 08:53 Temperature 98.7 F Pulse Rate Pulse Rate [ Anterior Bilateral Throughout] Respiratory 40 H 29 H Rate Respiratory Rate [Anterior Bilateral Throughout] Blood Pressure O2 Sat by Pulse Oximetry O2 Sat by Pulse Oximetry [ Assessment] 12/16/16 12/16/16 12/16/16 09:15 09:45 09:50 Temperature Pulse Rate 144 H 144 H Pulse Rate [ 135 H Anterior Bilateral Throughout] Respiratory 24 Rate Respiratory 24 Rate [Anterior Bilateral Throughout] Blood Pressure 103/67 103/67 O2 Sat by Pulse 90 Oximetry O2 Sat by Pulse Oximetry [ Assessment] 12/16/16 12/16/16 12/16/16 09:58 10:06 10:07 Temperature Pulse Rate 156 H Pulse Rate [ 138 H Anterior Bilateral Throughout] Respiratory 44 H Rate Respiratory 32 H Rate [Anterior Bilateral Throughout] Blood Pressure O2 Sat by Pulse 90 Oximetry O2 Sat by Pulse 90 Oximetry [ Assessment] 12/16/16 11:58 Temperature 98.2 F Pulse Rate Pulse Rate [ Anterior Bilateral Throughout] Respiratory Rate Respiratory Rate [Anterior Bilateral Throughout] Blood Pressure O2 Sat by Pulse Oximetry O2 Sat by Pulse Oximetry [ Assessment] - General Appearance General appearance: well-developed, well-nourished, appears stated age, intubated EENT: PERRL, mucous membranes moist, other (tracheostomy tube in place. Connected to the ventilator) Neck: other (left IJ PermCath in place) Respiratory: Present: Clear to Ascultation Cardiology: regular Gastrointestinal: normal, normoactive bowel sounds, other (bag noted over her previous PEG site) Integumentary: other (1+ edema) - Lab 12/13/16 04:00 12/15/16 04:00 Most recent lab results ABG pH 7.450 pH Units (7.350-7.450) 12/05/16 Unknown ABG pCO2 29.6 mm Hg 12/05/16 Unknown ABG pO2 75.2 mm Hg (80.0-90.0) L 12/05/16 Unknown ABG HCO3 20.1 mmol/L (20.0-26.0) 12/05/16 Unknown ABG O2 Saturation 96.8 % (95.0-99.0) 12/05/16 Unknown Calcium 9.0 mg/dL (8.4-10.2) 12/15/16 04:00 Phosphorus 5.20 mg/dL (2.5-4.5) H 12/15/16 04:00 Magnesium 1.90 mg/dL (1.7-2.3) 12/12/16 Unknown Urine Creatinine 19.7 mg/dL (0.1-20.0) 11/12/16 10:18 Urine Sodium 36 mEq/L 09/16/16 19:19 Urine Total Protein 16 mg/dL (5-11.8) H 09/16/16 19:19
--- NOTE | 2016-12-16 12:20 | Progress Note ---
Assessment and Plan Assessment and Plan 46-year-old woman with a history of hypertension, diabetes, asthma, hyperlipidemia, chronic kidney disease and anxiety , who was brought in by family because, she couldn't get her words out, her face was also twisted, she was admitted for acute CVA and accelerated hypertension, she had a hx of poor adherence with her medications, and uncontrolled htn. Patient's SBP on admission was noted be greater than 260. TPA was started but this was discontinued after 5 minutes because her blood pressure became uncontrolled. The TPA was not initiated again because the patient was outside the TPA window. Leukocytosis CT abdomen done post code to evaluate for worsening leukocytosis.... probable fistula sp R thoracentesis on 11/14, 240cc of serous fluid removed, cx of fluid was negative Intra abdominal fistula ID following -Severe Sepsis with septic shock, recurrent. Patient with multiple episodes of sepsis. Initial episode due to presumed aspiration pneumonia and septic episode on 09/23 from candidemia then a third episode from peritonitis from gastric perforation from dislodged PEG , there was an abscess in the abdomen present at that time that was draining pus. +/-UTI. Surgical wound infection/gram-negative sepsis/candidemia/peritonitis -TPN for nutritional support -Promotility agents today, monitor response. No further episodes of vomiting this morning -continue wound care to ostomy sites -Bowel regimen JUANITA, now ESRD Likely due to vasomotor nephropathy and ATN given sepsis Nephrology input appreciated Acute CVA with infarct. sp TPA Continue neuro checks. Neurology input appreciated, CT shows continued evolution of left MCA infarct with slight mass effect and edema, and there is no hemorrhage - PRINCE showed hyperdynamic with ef of 75%, neither clot nor septal defect seen - MRA Brain shows near complete occlusion of M2 and M3 of the left MCA - Repeat CT scan done on 09/11, shows stable findings - carotid doppler negative - Echo shows preserved systolic function but does show some left ventricular diastolic dysfunction - continue asa and statin for secondary ppx Paroxysmal atrial fibrillation. On Metoprolol Persistent vegetative state This patient's needs placement at either hospice or SNF -She was denied for LTACH Acute hypoxic respiratory failure requiring MV >96hrs Status post tracheostomy, back on full mechanical ventilatory support s/p PEA arrest with ROSC. VAP bundle addressed. Continue with daily SBTs as tolerated VTE prophylaxis Stress ulcer prophylaxis Aspiration precautions HOB>40 Nosocomial acquired aspiration pneumonia/sepsis/UTI She had completed a course of antibiotics. Being monitored off antibiotics Asthma/COPD exacerbation s/p trach Continue bronchodilators Acute Toxic Metabolic encephalopathy( improved). Multitifactorial, mostly secondary to evolution of CVA Hypertensive Emergency-stable Now on Metoprolol, Cozaar,Hydralazine, Clonidine patch. Bilateral pleural effusion, s/p right thoracentesis Paroxysmal atrial fibrillation with rapid ventricular rate, failed cardioversion Continue current medications, Not a candidate for anticoagulation secondary to anemia, thrombocytopenia, and massive CVA Hypokalemia/Hypomagnesemia/hypophosphatemia. Replete electrolytes as needed. Diabetes type 2. Continue sliding-scale regular insulin and Accu-Cheks. Hyperlipidemia. Continue statin Nutrition continue tube feeds Anemia requiring multiple transfusions/acute blood loss Has received total 13 units of PRBC this admission. Will continue to transfuse to keep Hemoglobin above 7 Her POA is her Brother, Jam [phone] Disposition. Very poor prognosis. - Patient Problems (1) Acute respiratory failure with hypoxia Current Visit: Yes Status: Acute (2) Acute blood loss anemia Current Visit: Yes Status: Resolved (3) Acute CVA (cerebrovascular accident) Current Visit: Yes Status: Acute (4) Chronic renal insufficiency Current Visit: Yes Status: Acute Qualifiers: Chronic kidney disease stage: C (5) Uncontrolled hypertension Current Visit: Yes Status: Acute (6) Leukocytosis (leucocytosis) Current Visit: Yes Status: Acute Qualifiers: Leukocytosis type: leukemoid reaction Qualified Code(s): D72.823 - Leukemoid reaction (7) Dislodged gastrostomy tube Current Visit: Yes Status: Acute (8) Fungemia Current Visit: Yes Status: Resolved Subjective Date of service: 12/16/16 Principal diagnosis: Acute resp failure on MVS; S/P Acute CVA; Acute Encephalopathy; JUANITA Interval history: Seen and examined. Vitals, labs, medications, chart reviewed. On mechanical ventilatory support Not tolerating CPAP, has billous secretions from her trach. Brownish drainage from her nostril On going vomiting, no bowel movements. Discussed in interdisciplinary rounds Objective Vital Signs - 12hr 12/16/16 12/16/16 12/16/16 00:30 00:45 01:00 Temperature Pulse Rate 118 H 116 H 117 H Pulse Rate [ Anterior Bilateral Throughout] Respiratory 23 24 22 Rate Respiratory Rate [Anterior Bilateral Throughout] Blood Pressure 100/59 89/51 97/64 O2 Sat by Pulse 93 94 94 Oximetry O2 Sat by Pulse Oximetry [ Assessment] 12/16/16 12/16/16 12/16/16 01:15 01:30 01:45 Temperature Pulse Rate 115 H 113 H 117 H Pulse Rate [ Anterior Bilateral Throughout] Respiratory 22 21 26 H Rate Respiratory Rate [Anterior Bilateral Throughout] Blood Pressure 94/54 94/52 101/62 O2 Sat by Pulse 94 94 93 Oximetry O2 Sat by Pulse Oximetry [ Assessment] 12/16/16 12/16/16 12/16/16 01:46 01:52 02:00 Temperature Pulse Rate 126 H Pulse Rate [ 117 H 121 H Anterior Bilateral Throughout] Respiratory 19 Rate Respiratory 25 H 15 Rate [Anterior Bilateral Throughout] Blood Pressure 116/67 O2 Sat by Pulse 96 Oximetry O2 Sat by Pulse Oximetry [ Assessment] 12/16/16 12/16/16 12/16/16 02:15 02:30 02:45 Temperature Pulse Rate 125 H 118 H 122 H Pulse Rate [ Anterior Bilateral Throughout] Respiratory 15 17 16 Rate Respiratory Rate [Anterior Bilateral Throughout] Blood Pressure 102/58 97/59 105/61 O2 Sat by Pulse 95 95 96 Oximetry O2 Sat by Pulse Oximetry [ Assessment] 12/16/16 12/16/16 12/16/16 02:57 03:00 03:15 Temperature Pulse Rate 121 H 122 H 121 H Pulse Rate [ Anterior Bilateral Throughout] Respiratory 25 H 24 Rate Respiratory Rate [Anterior Bilateral Throughout] Blood Pressure 105/61 105/61 106/64 O2 Sat by Pulse 96 96 96 Oximetry O2 Sat by Pulse Oximetry [ Assessment] 12/16/16 12/16/16 12/16/16 03:30 03:45 04:00 Temperature 98.9 F Pulse Rate 125 H 122 H 126 H Pulse Rate [ Anterior Bilateral Throughout] Respiratory 21 23 26 H Rate Respiratory Rate [Anterior Bilateral Throughout] Blood Pressure 111/73 106/65 111/64 O2 Sat by Pulse 98 97 96 Oximetry O2 Sat by Pulse Oximetry [ Assessment] 12/16/16 12/16/16 12/16/16 04:15 04:30 04:39 Temperature Pulse Rate 125 H 123 H 120 H Pulse Rate [ Anterior Bilateral Throughout] Respiratory 25 H 22 Rate Respiratory Rate [Anterior Bilateral Throughout] Blood Pressure 106/65 110/65 90/60 O2 Sat by Pulse 97 96 Oximetry O2 Sat by Pulse Oximetry [ Assessment] 12/16/16 12/16/16 12/16/16 04:45 05:00 05:15 Temperature Pulse Rate 130 H 122 H 121 H Pulse Rate [ Anterior Bilateral Throughout] Respiratory 16 19 16 Rate Respiratory Rate [Anterior Bilateral Throughout] Blood Pressure 114/65 103/63 107/66 O2 Sat by Pulse 97 97 97 Oximetry O2 Sat by Pulse Oximetry [ Assessment] 12/16/16 12/16/16 12/16/16 05:30 05:45 06:00 Temperature Pulse Rate 122 H 126 H 144 H Pulse Rate [ Anterior Bilateral Throughout] Respiratory 11 L 26 H 30 H Rate Respiratory Rate [Anterior Bilateral Throughout] Blood Pressure 109/71 120/75 122/57 O2 Sat by Pulse 97 97 92 Oximetry O2 Sat by Pulse Oximetry [ Assessment] 12/16/16 12/16/16 12/16/16 06:06 06:15 06:30 Temperature Pulse Rate 118 H 130 H 144 H Pulse Rate [ Anterior Bilateral Throughout] Respiratory 23 35 H Rate Respiratory Rate [Anterior Bilateral Throughout] Blood Pressure 98/64 110/59 111/64 O2 Sat by Pulse 93 79 L Oximetry O2 Sat by Pulse Oximetry [ Assessment] 12/16/16 12/16/16 12/16/16 06:45 07:00 07:01 Temperature Pulse Rate 153 H 141 H 148 H Pulse Rate [ Anterior Bilateral Throughout] Respiratory 28 H 27 H Rate Respiratory Rate [Anterior Bilateral Throughout] Blood Pressure 110/59 103/64 99/56 O2 Sat by Pulse 89 91 Oximetry O2 Sat by Pulse Oximetry [ Assessment] 12/16/16 12/16/16 12/16/16 07:10 07:26 08:00 Temperature 98.7 F Pulse Rate 152 H Pulse Rate [ Anterior Bilateral Throughout] Respiratory 33 H Rate Respiratory Rate [Anterior Bilateral Throughout] Blood Pressure 103/64 O2 Sat by Pulse Oximetry O2 Sat by Pulse Oximetry [ Assessment] 12/16/16 12/16/16 12/16/16 08:23 08:53 09:15 Temperature Pulse Rate 144 H Pulse Rate [ Anterior Bilateral Throughout] Respiratory 40 H 29 H Rate Respiratory Rate [Anterior Bilateral Throughout] Blood Pressure 103/67 O2 Sat by Pulse Oximetry O2 Sat by Pulse Oximetry [ Assessment] 12/16/16 12/16/16 12/16/16 09:45 09:50 09:58 Temperature Pulse Rate 144 H 156 H Pulse Rate [ 135 H Anterior Bilateral Throughout] Respiratory 24 44 H Rate Respiratory 24 Rate [Anterior Bilateral Throughout] Blood Pressure 103/67 O2 Sat by Pulse 90 90 Oximetry O2 Sat by Pulse Oximetry [ Assessment] 12/16/16 12/16/16 12/16/16 10:06 10:07 11:58 Temperature 98.2 F Pulse Rate Pulse Rate [ 138 H Anterior Bilateral Throughout] Respiratory Rate Respiratory 32 H Rate [Anterior Bilateral Throughout] Blood Pressure O2 Sat by Pulse Oximetry O2 Sat by Pulse 90 Oximetry [ Assessment] Constitutional: appears uncomfortable, other (not tracking) Eyes: non-icteric, other (tracheostomy tube in midline of neck) ENT: oropharynx moist, oropharyngeal exudate pre Neck: supple, no lymphadenopathy, no JVD, other (no thyromegaly) Effort: mildly labored Ascultation: Left: diminished breath sounds (base), Bilateral: clear, rales, rhonchi (and referred upper airway sounds) Percussion: Left: dull (base), Bilateral: not dull Cardiovascular: regular rate and rhythm, other (no rubs / murmurs) Gastrointestinal: hypoactive bowel sounds, soft, non-tender, non-distended, other (RLQ & LUQ stomas with colostomy bags) Integumentary: other (no rash; no cellulitis; poor turgor) Extremities: no cyanosis, pulses normal, no ischemia or petechiae, edema (1+ bilaterally) Neurologic: pupils equal and round, unable to assess, other (encephalopathic) Psychiatric: other (unable to assess) CBC and BMP: 12/19/16 05:02 12/20/16 07:07 ABG, PT/INR, D-dimer: ABG POC ABG pH 7.487 (7.35-7.45) H 11/25/16 14:12 ABG pH 7.450 pH Units (7.350-7.450) 12/05/16 Unknown POC ABG pCO2 39.0 (35-45) 11/25/16 14:12 ABG pCO2 29.6 mm Hg 12/05/16 Unknown POC ABG pO2 153 (80-105) H 11/25/16 14:12 ABG pO2 75.2 mm Hg (80.0-90.0) L 12/05/16 Unknown POC ABG HCO3 29.5 11/25/16 14:12 POC ABG Total CO2 31 11/25/16 14:12 POC ABG O2 Sat 99 11/25/16 14:12 ABG O2 Saturation 96.8 % (95.0-99.0) 12/05/16 Unknown PT/INR, D-dimer PT 16.8 Sec. (12.2-14.9) H 11/17/16 03:20 INR 1.37 (0.87-1.13) H 11/17/16 03:20 Abnormal lab findings: Abnormal Labs 09/03/16 09/03/16 09/03/16 12:12 15:07 16:20 WBC RBC Hgb Hct MCV MCH MCHC RDW Plt Count Lymph % (Auto) Ada % (Auto) Lymph # Ada # Baso # Seg Neutrophils % Seg Neuts % (Manual) Lymphocytes % (Manual) Monocytes % (Manual) Eosinophils % (Manual) Basophils % (Manual) Nucleated RBC % Seg Neutrophils # Seg Neutrophils # Man Lymphocytes # (Manual) Monocytes # (Manual) Eosinophils # (Manual) PT INR Fibrinogen dRVVT Confirm Interp Factor V Activity POC ABG pH 7.452 H POC ABG pCO2 POC ABG pO2 ABG pO2 ABG HCO3 ABG Base Excess ABG Hemoglobin Oxyhemoglobin Sodium Potassium Chloride Carbon Dioxide BUN Creatinine Glucose POC Glucose 178 H Lactic Acid Calcium Phosphorus 2.20 L Magnesium 1.60 L Direct Bilirubin AST ALT Alkaline Phosphatase Lactate Dehydrogenase Troponin T C-Reactive Protein Total Protein Albumin Prealbumin Triglycerides Cholesterol LDL Cholesterol Direct HDL Cholesterol Urine pH Urine WBC (Auto) Urine Creatinine Urine Total Protein Fluid Total Protein Vancomycin Trough Rheumatoid Factor Complement C4 Miscellaneous Test Crossmatch 09/03/16 09/03/16 09/03/16 17:57 17:58 23:50 WBC RBC Hgb Hct MCV MCH MCHC RDW Plt Count Lymph % (Auto) Ada % (Auto) Lymph # Ada # Baso # Seg Neutrophils % Seg Neuts % (Manual) Lymphocytes % (Manual) Monocytes % (Manual) Eosinophils % (Manual) Basophils % (Manual) Nucleated RBC % Seg Neutrophils # Seg Neutrophils # Man Lymphocytes # (Manual) Monocytes # (Manual) Eosinophils # (Manual) PT INR Fibrinogen dRVVT Confirm Interp Factor V Activity POC ABG pH POC ABG pCO2 POC ABG pO2 ABG pO2 ABG HCO3 ABG Base Excess ABG Hemoglobin Oxyhemoglobin Sodium Potassium Chloride Carbon Dioxide BUN Creatinine Glucose POC Glucose 162 H 145 H Lactic Acid Calcium Phosphorus 2.30 L Magnesium Direct Bilirubin AST ALT Alkaline Phosphatase Lactate Dehydrogenase Troponin T C-Reactive Protein Total Protein Albumin Prealbumin Triglycerides Cholesterol LDL Cholesterol Direct HDL Cholesterol Urine pH Urine WBC (Auto) Urine Creatinine Urine Total Protein Fluid Total Protein Vancomycin Trough Rheumatoid Factor Complement C4 Miscellaneous Test Crossmatch 09/04/16 09/04/16 09/04/16 03:31 03:31 05:42 WBC RBC Hgb 9.7 L D Hct MCV 72 L MCH 23 L MCHC RDW 17.5 H Plt Count Lymph % (Auto) 11.1 L Ada % (Auto) Lymph # Ada # Baso # Seg Neutrophils % 84.3 H Seg Neuts % (Manual) Lymphocytes % (Manual) Monocytes % (Manual) Eosinophils % (Manual) Basophils % (Manual) Nucleated RBC % Seg Neutrophils # 8.9 H Seg Neutrophils # Man Lymphocytes # (Manual) Monocytes # (Manual) Eosinophils # (Manual) PT INR Fibrinogen dRVVT Confirm Interp Factor V Activity POC ABG pH POC ABG pCO2 POC ABG pO2 ABG pO2 ABG HCO3 ABG Base Excess ABG Hemoglobin Oxyhemoglobin Sodium 135 L Potassium 2.9 L* Chloride 97.2 L Carbon Dioxide 19 L BUN Creatinine 1.7 H Glucose 170 H POC Glucose 152 H Lactic Acid Calcium Phosphorus Magnesium Direct Bilirubin AST ALT Alkaline Phosphatase Lactate Dehydrogenase Troponin T C-Reactive Protein Total Protein Albumin Prealbumin Triglycerides 160 H Cholesterol LDL Cholesterol Direct HDL Cholesterol 31 L Urine pH Urine WBC (Auto) Urine Creatinine Urine Total Protein Fluid Total Protein Vancomycin Trough Rheumatoid Factor Complement C4 Miscellaneous Test Crossmatch 09/04/16 09/04/16 09/04/16 11:34 17:46 23:29 WBC RBC Hgb Hct MCV MCH MCHC RDW Plt Count Lymph % (Auto) Ada % (Auto) Lymph # Ada # Baso # Seg Neutrophils % Seg Neuts % (Manual) Lymphocytes % (Manual) Monocytes % (Manual) Eosinophils % (Manual) Basophils % (Manual) Nucleated RBC % Seg Neutrophils # Seg Neutrophils # Man Lymphocytes # (Manual) Monocytes # (Manual) Eosinophils # (Manual) PT INR Fibrinogen dRVVT Confirm Interp Factor V Activity POC ABG pH POC ABG pCO2 POC ABG pO2 ABG pO2 ABG HCO3 ABG Base Excess ABG Hemoglobin Oxyhemoglobin Sodium Potassium Chloride Carbon Dioxide BUN Creatinine Glucose POC Glucose 165 H 210 H 139 H Lactic Acid Calcium Phosphorus Magnesium Direct Bilirubin AST ALT Alkaline Phosphatase Lactate Dehydrogenase Troponin T C-Reactive Protein Total Protein Albumin Prealbumin Triglycerides Cholesterol LDL Cholesterol Direct HDL Cholesterol Urine pH Urine WBC (Auto) Urine Creatinine Urine Total Protein Fluid Total Protein Vancomycin Trough Rheumatoid Factor Complement C4 Miscellaneous Test Crossmatch 09/05/16 09/05/16 09/05/16 04:05 04:05 05:38 WBC RBC Hgb Hct MCV 76 L D MCH 23 L MCHC RDW 17.8 H Plt Count Lymph % (Auto) Ada % (Auto) Lymph # Ada # Baso # Seg Neutrophils % Seg Neuts % (Manual) Lymphocytes % (Manual) Monocytes % (Manual) Eosinophils % (Manual) Basophils % (Manual) Nucleated RBC % Seg Neutrophils # Seg Neutrophils # Man Lymphocytes # (Manual) Monocytes # (Manual) Eosinophils # (Manual) PT INR Fibrinogen dRVVT Confirm Interp Factor V Activity POC ABG pH POC ABG pCO2 POC ABG pO2 ABG pO2 ABG HCO3 ABG Base Excess ABG Hemoglobin Oxyhemoglobin Sodium 134 L Potassium Chloride Carbon Dioxide 18 L BUN Creatinine 1.8 H Glucose 192 H POC Glucose 175 H Lactic Acid Calcium Phosphorus Magnesium Direct Bilirubin AST ALT Alkaline Phosphatase Lactate Dehydrogenase Troponin T C-Reactive Protein Total Protein Albumin Prealbumin Triglycerides Cholesterol LDL Cholesterol Direct HDL Cholesterol Urine pH Urine WBC (Auto) Urine Creatinine Urine Total Protein Fluid Total Protein Vancomycin Trough Rheumatoid Factor Complement C4 Miscellaneous Test Crossmatch 09/05/16 09/05/16 09/05/16 11:38 17:48 23:22 WBC RBC Hgb Hct MCV MCH MCHC RDW Plt Count Lymph % (Auto) Ada % (Auto) Lymph # Ada # Baso # Seg Neutrophils % Seg Neuts % (Manual) Lymphocytes % (Manual) Monocytes % (Manual) Eosinophils % (Manual) Basophils % (Manual) Nucleated RBC % Seg Neutrophils # Seg Neutrophils # Man Lymphocytes # (Manual) Monocytes # (Manual) Eosinophils # (Manual) PT INR Fibrinogen dRVVT Confirm Interp Factor V Activity POC ABG pH POC ABG pCO2 POC ABG pO2 ABG pO2 ABG HCO3 ABG Base Excess ABG Hemoglobin Oxyhemoglobin Sodium Potassium Chloride Carbon Dioxide BUN Creatinine Glucose POC Glucose 164 H 186 H 195 H Lactic Acid Calcium Phosphorus Magnesium Direct Bilirubin AST ALT Alkaline Phosphatase Lactate Dehydrogenase Troponin T C-Reactive Protein Total Protein Albumin Prealbumin Triglycerides Cholesterol LDL Cholesterol Direct HDL Cholesterol Urine pH Urine WBC (Auto) Urine Creatinine Urine Total Protein Fluid Total Protein Vancomycin Trough Rheumatoid Factor Complement C4 Miscellaneous Test Crossmatch 09/06/16 09/06/16 09/06/16 04:12 05:59 07:32 WBC RBC Hgb Hct MCV MCH MCHC RDW Plt Count Lymph % (Auto) Ada % (Auto) Lymph # Ada # Baso # Seg Neutrophils % Seg Neuts % (Manual) Lymphocytes % (Manual) Monocytes % (Manual) Eosinophils % (Manual) Basophils % (Manual) Nucleated RBC % Seg Neutrophils # Seg Neutrophils # Man Lymphocytes # (Manual) Monocytes # (Manual) Eosinophils # (Manual) PT INR Fibrinogen dRVVT Confirm Interp Factor V Activity POC ABG pH 7.514 H POC ABG pCO2 29.1 L POC ABG pO2 72 L ABG pO2 ABG HCO3 ABG Base Excess ABG Hemoglobin Oxyhemoglobin Sodium 133 L Potassium 3.4 L Chloride 94.9 L Carbon Dioxide 19 L BUN 30 H Creatinine 2.1 H Glucose 139 H POC Glucose 146 H Lactic Acid Calcium Phosphorus Magnesium Direct Bilirubin AST ALT Alkaline Phosphatase Lactate Dehydrogenase Troponin T C-Reactive Protein Total Protein Albumin Prealbumin Triglycerides Cholesterol LDL Cholesterol Direct HDL Cholesterol Urine pH Urine WBC (Auto) Urine Creatinine Urine Total Protein Fluid Total Protein Vancomycin Trough Rheumatoid Factor Complement C4 Miscellaneous Test Crossmatch 09/06/16 09/06/16 09/06/16 11:57 17:58 19:02 WBC RBC Hgb Hct MCV MCH MCHC RDW Plt Count Lymph % (Auto) Ada % (Auto) Lymph # Ada # Baso # Seg Neutrophils % Seg Neuts % (Manual) Lymphocytes % (Manual) Monocytes % (Manual) Eosinophils % (Manual) Basophils % (Manual) Nucleated RBC % Seg Neutrophils # Seg Neutrophils # Man Lymphocytes # (Manual) Monocytes # (Manual) Eosinophils # (Manual) PT INR Fibrinogen dRVVT Confirm Interp Factor V Activity POC ABG pH 7.465 H POC ABG pCO2 32.0 L POC ABG pO2 ABG pO2 ABG HCO3 ABG Base Excess ABG Hemoglobin Oxyhemoglobin Sodium Potassium Chloride Carbon Dioxide BUN Creatinine Glucose POC Glucose 165 H 160 H Lactic Acid Calcium Phosphorus Magnesium Direct Bilirubin AST ALT Alkaline Phosphatase Lactate Dehydrogenase Troponin T C-Reactive Protein Total Protein Albumin Prealbumin Triglycerides Cholesterol LDL Cholesterol Direct HDL Cholesterol Urine pH Urine WBC (Auto) Urine Creatinine Urine Total Protein Fluid Total Protein Vancomycin Trough Rheumatoid Factor Complement C4 Miscellaneous Test Crossmatch 09/06/16 09/07/16 09/07/16 23:45 02:47 02:47 WBC RBC Hgb Hct MCV MCH MCHC RDW Plt Count Lymph % (Auto) Ada % (Auto) Lymph # Ada # Baso # Seg Neutrophils % Seg Neuts % (Manual) Lymphocytes % (Manual) Monocytes % (Manual) Eosinophils % (Manual) Basophils % (Manual) Nucleated RBC % Seg Neutrophils # Seg Neutrophils # Man Lymphocytes # (Manual) Monocytes # (Manual) Eosinophils # (Manual) PT INR Fibrinogen dRVVT Confirm Interp Factor V Activity POC ABG pH POC ABG pCO2 POC ABG pO2 ABG pO2 ABG HCO3 ABG Base Excess ABG Hemoglobin Oxyhemoglobin Sodium Potassium Chloride Carbon Dioxide BUN Creatinine Glucose POC Glucose 204 H Lactic Acid Calcium Phosphorus Magnesium Direct Bilirubin AST ALT Alkaline Phosphatase Lactate Dehydrogenase Troponin T C-Reactive Protein Total Protein Albumin Prealbumin Triglycerides Cholesterol LDL Cholesterol Direct HDL Cholesterol Urine pH Urine WBC (Auto) 68.0 H Urine Creatinine 106.1 H Urine Total Protein Fluid Total Protein Vancomycin Trough Rheumatoid Factor Complement C4 Miscellaneous Test Crossmatch 09/07/16 09/07/16 09/07/16 04:50 06:19 06:39 WBC RBC Hgb Hct MCV MCH MCHC RDW Plt Count Lymph % (Auto) Ada % (Auto) Lymph # Ada # Baso # Seg Neutrophils % Seg Neuts % (Manual) Lymphocytes % (Manual) Monocytes % (Manual) Eosinophils % (Manual) Basophils % (Manual) Nucleated RBC % Seg Neutrophils # Seg Neutrophils # Man Lymphocytes # (Manual) Monocytes # (Manual) Eosinophils # (Manual) PT INR Fibrinogen dRVVT Confirm Interp Factor V Activity POC ABG pH 7.457 H POC ABG pCO2 32.1 L POC ABG pO2 76 L ABG pO2 ABG HCO3 ABG Base Excess ABG Hemoglobin Oxyhemoglobin Sodium 132 L Potassium Chloride 94.7 L Carbon Dioxide BUN 53 H Creatinine 2.9 H Glucose 151 H POC Glucose 149 H Lactic Acid Calcium Phosphorus Magnesium Direct Bilirubin AST ALT Alkaline Phosphatase Lactate Dehydrogenase Troponin T C-Reactive Protein Total Protein Albumin Prealbumin Triglycerides Cholesterol LDL Cholesterol Direct HDL Cholesterol Urine pH Urine WBC (Auto) Urine Creatinine Urine Total Protein Fluid Total Protein Vancomycin Trough Rheumatoid Factor Complement C4 Miscellaneous Test Crossmatch 09/07/16 09/07/16 09/07/16 09:20 11:43 11:43 WBC 19.4 H RBC Hgb 8.3 L Hct 26.4 L D MCV 72 L D MCH 22 L MCHC RDW 17.9 H Plt Count Lymph % (Auto) 8.5 L Ada % (Auto) Lymph # Ada # 1.0 H Baso # Seg Neutrophils % 85.8 H Seg Neuts % (Manual) Lymphocytes % (Manual) Monocytes % (Manual) Eosinophils % (Manual) Basophils % (Manual) Nucleated RBC % Seg Neutrophils # 16.6 H Seg Neutrophils # Man Lymphocytes # (Manual) Monocytes # (Manual) Eosinophils # (Manual) PT INR Fibrinogen dRVVT Confirm Interp Factor V Activity POC ABG pH POC ABG pCO2 POC ABG pO2 ABG pO2 ABG HCO3 ABG Base Excess ABG Hemoglobin Oxyhemoglobin Sodium 134 L Potassium Chloride 97.2 L Carbon Dioxide 20 L BUN 58 H Creatinine 2.9 H Glucose 147 H POC Glucose Lactic Acid Calcium Phosphorus 2.40 L Magnesium 2.40 H Direct Bilirubin AST ALT Alkaline Phosphatase Lactate Dehydrogenase Troponin T C-Reactive Protein Total Protein 5.8 L Albumin 2.2 L Prealbumin Triglycerides Cholesterol LDL Cholesterol Direct HDL Cholesterol Urine pH Urine WBC (Auto) Urine Creatinine Urine Total Protein Fluid Total Protein Vancomycin Trough Rheumatoid Factor Complement C4 58 H Miscellaneous Test Crossmatch 09/07/16 09/07/16 09/07/16 11:50 16:00 17:31 WBC RBC Hgb Hct MCV MCH MCHC RDW Plt Count Lymph % (Auto) Ada % (Auto) Lymph # Ada # Baso # Seg Neutrophils % Seg Neuts % (Manual) Lymphocytes % (Manual) Monocytes % (Manual) Eosinophils % (Manual) Basophils % (Manual) Nucleated RBC % Seg Neutrophils # Seg Neutrophils # Man Lymphocytes # (Manual) Monocytes # (Manual) Eosinophils # (Manual) PT INR Fibrinogen dRVVT Confirm Interp Factor V Activity POC ABG pH POC ABG pCO2 POC ABG pO2 158 H ABG pO2 ABG HCO3 ABG Base Excess ABG Hemoglobin Oxyhemoglobin Sodium Potassium Chloride Carbon Dioxide BUN Creatinine Glucose POC Glucose 175 H Lactic Acid Calcium Phosphorus Magnesium Direct Bilirubin AST ALT Alkaline Phosphatase Lactate Dehydrogenase Troponin T C-Reactive Protein Total Protein Albumin Prealbumin Triglycerides Cholesterol LDL Cholesterol Direct HDL Cholesterol Urine pH Urine WBC (Auto) Urine Creatinine 66.3 H Urine Total Protein Fluid Total Protein Vancomycin Trough Rheumatoid Factor Complement C4 Miscellaneous Test Crossmatch 09/07/16 09/08/16 09/08/16 23:50 05:46 06:18 WBC 17.8 H RBC 3.58 L Hgb 8.1 L Hct 25.5 L MCV 71 L MCH 23 L MCHC RDW 18.4 H Plt Count Lymph % (Auto) Ada % (Auto) Lymph # Ada # Baso # Seg Neutrophils % Seg Neuts % (Manual) 92.0 H Lymphocytes % (Manual) 6.0 L Monocytes % (Manual) Eosinophils % (Manual) Basophils % (Manual) Nucleated RBC % Seg Neutrophils # Seg Neutrophils # Man 16.4 H Lymphocytes # (Manual) 1.1 L Monocytes # (Manual) Eosinophils # (Manual) PT INR Fibrinogen dRVVT Confirm Interp Factor V Activity POC ABG pH POC ABG pCO2 34.3 L POC ABG pO2 71 L ABG pO2 ABG HCO3 ABG Base Excess ABG Hemoglobin Oxyhemoglobin Sodium Potassium Chloride Carbon Dioxide BUN Creatinine Glucose POC Glucose 216 H Lactic Acid Calcium Phosphorus Magnesium Direct Bilirubin AST ALT Alkaline Phosphatase Lactate Dehydrogenase Troponin T C-Reactive Protein Total Protein Albumin Prealbumin Triglycerides Cholesterol LDL Cholesterol Direct HDL Cholesterol Urine pH Urine WBC (Auto) Urine Creatinine Urine Total Protein Fluid Total Protein Vancomycin Trough Rheumatoid Factor Complement C4 Miscellaneous Test Crossmatch 09/08/16 09/08/16 09/08/16 06:18 06:51 10:55 WBC RBC Hgb Hct MCV MCH MCHC RDW Plt Count Lymph % (Auto) [place] % (Auto) Lymph # [place] # Baso # Seg Neutrophils % Seg Neuts % (Manual) Lymphocytes % (Manual) Monocytes % (Manual) Eosinophils % (Manual) Basophils % (Manual) Nucleated RBC % Seg Neutrophils # Seg Neutrophils # Man Lymphocytes # (Manual) Monocytes # (Manual) Eosinophils # (Manual) PT INR Fibrinogen dRVVT Confirm Interp Factor V Activity POC ABG pH POC ABG pCO2 POC ABG pO2 ABG pO2 ABG HCO3 ABG Base Excess ABG Hemoglobin Oxyhemoglobin Sodium 133 L Potassium Chloride 96.9 L Carbon Dioxide 20 L BUN 63 H Creatinine 2.7 H Glucose 195 H POC Glucose 204 H 169 H Lactic Acid Calcium Phosphorus Magnesium Direct Bilirubin AST ALT Alkaline Phosphatase Lactate Dehydrogenase Troponin T C-Reactive Protein Total Protein Albumin Prealbumin Triglycerides Cholesterol LDL Cholesterol Direct HDL Cholesterol Urine pH Urine WBC (Auto) Urine Creatinine Urine Total Protein Fluid Total Protein Vancomycin Trough Rheumatoid Factor Complement C4 Miscellaneous Test Crossmatch 09/08/16 09/08/16 09/08/16 11:48 11:48 11:48 WBC RBC Hgb Hct MCV MCH MCHC RDW Plt Count Lymph % (Auto) [place] % (Auto) Lymph # [place] # [place] # Seg Neutrophils % Seg Neuts % (Manual) Lymphocytes % (Manual) Monocytes % (Manual) Eosinophils % (Manual) Basophils % (Manual) Nucleated RBC % Seg Neutrophils # Seg Neutrophils # Man Lymphocytes # (Manual) Monocytes # (Manual) Eosinophils # (Manual) PT INR Fibrinogen 750 H dRVVT Confirm Interp Factor V Activity POC ABG pH POC ABG pCO2 POC ABG pO2 ABG pO2 ABG HCO3 ABG Base Excess ABG Hemoglobin Oxyhemoglobin Sodium Potassium Chloride Carbon Dioxide BUN Creatinine Glucose POC Glucose Lactic Acid Calcium Phosphorus Magnesium Direct Bilirubin AST ALT Alkaline Phosphatase Lactate Dehydrogenase Troponin T C-Reactive Protein 15.70 H Total Protein Albumin Prealbumin Triglycerides Cholesterol LDL Cholesterol Direct HDL Cholesterol Urine pH Urine WBC (Auto) Urine Creatinine Urine Total Protein Fluid Total Protein Vancomycin Trough Rheumatoid Factor 24 H Complement C4 Miscellaneous Test Crossmatch 09/08/16 09/08/16 09/09/16 15:35 18:25 00:24 WBC RBC Hgb Hct MCV MCH MCHC RDW Plt Count Lymph % (Auto) [place] % (Auto) Lymph # [place] # [place] # Seg Neutrophils % Seg Neuts % (Manual) Lymphocytes % (Manual) Monocytes % (Manual) Eosinophils % (Manual) Basophils % (Manual) Nucleated RBC % Seg Neutrophils # Seg Neutrophils # Man Lymphocytes # (Manual) Monocytes # (Manual) Eosinophils # (Manual) PT INR Fibrinogen dRVVT Confirm Interp Factor V Activity 182 H POC ABG pH POC ABG pCO2 POC ABG pO2 ABG pO2 ABG HCO3 ABG Base Excess ABG Hemoglobin Oxyhemoglobin Sodium Potassium Chloride Carbon Dioxide BUN Creatinine Glucose POC Glucose 184 H 216 H Lactic Acid Calcium Phosphorus Magnesium Direct Bilirubin AST ALT Alkaline Phosphatase Lactate Dehydrogenase Troponin T C-Reactive Protein Total Protein Albumin Prealbumin Triglycerides Cholesterol LDL Cholesterol Direct HDL Cholesterol Urine pH Urine WBC (Auto) Urine Creatinine Urine Total Protein Fluid Total Protein Vancomycin Trough Rheumatoid Factor Complement C4 Miscellaneous Test Crossmatch 09/09/16 09/09/16 09/09/16 03:00 03:00 04:04 WBC 27.9 H RBC Hgb 8.7 L Hct 28.1 L MCV 72 L MCH 22 L MCHC RDW 18.4 H Plt Count 485 H Lymph % (Auto) [place] % (Auto) Lymph # [place] # Baso # Seg Neutrophils % Seg Neuts % (Manual) 77.0 H Lymphocytes % (Manual) 9.0 L Monocytes % (Manual) Eosinophils % (Manual) Basophils % (Manual) Nucleated RBC % Seg Neutrophils # Seg Neutrophils # Man 21.5 H Lymphocytes # (Manual) Monocytes # (Manual) 2.0 H Eosinophils # (Manual) PT INR Fibrinogen dRVVT Confirm Interp Factor V Activity POC ABG pH POC ABG pCO2 POC ABG pO2 121 H ABG pO2 ABG HCO3 ABG Base Excess ABG Hemoglobin Oxyhemoglobin Sodium 135 L Potassium Chloride 96.3 L Carbon Dioxide 21 L BUN 83 H Creatinine 3.0 H Glucose 135 H POC Glucose Lactic Acid Calcium Phosphorus Magnesium Direct Bilirubin AST ALT Alkaline Phosphatase Lactate Dehydrogenase Troponin T C-Reactive Protein Total Protein Albumin Prealbumin Triglycerides Cholesterol LDL Cholesterol Direct HDL Cholesterol Urine pH Urine WBC (Auto) Urine Creatinine Urine Total Protein Fluid Total Protein Vancomycin Trough Rheumatoid Factor Complement C4 Miscellaneous Test Crossmatch 09/09/16 09/09/16 09/09/16 05:41 11:55 14:13 WBC RBC Hgb Hct MCV MCH MCHC RDW Plt Count Lymph % (Auto) [place] % (Auto) Lymph # [place] # Baso # Seg Neutrophils % Seg Neuts % (Manual) Lymphocytes % (Manual) Monocytes % (Manual) Eosinophils % (Manual) Basophils % (Manual) Nucleated RBC % Seg Neutrophils # Seg Neutrophils # Man Lymphocytes # (Manual) Monocytes # (Manual) Eosinophils # (Manual) PT INR Fibrinogen dRVVT Confirm Interp Factor V Activity POC ABG pH POC ABG pCO2 POC ABG pO2 ABG pO2 ABG HCO3 ABG Base Excess ABG Hemoglobin Oxyhemoglobin Sodium Potassium Chloride Carbon Dioxide BUN Creatinine Glucose POC Glucose 155 H 186 H Lactic Acid Calcium Phosphorus Magnesium Direct Bilirubin AST ALT Alkaline Phosphatase Lactate Dehydrogenase Troponin T C-Reactive Protein Total Protein Albumin Prealbumin Triglycerides Cholesterol LDL Cholesterol Direct HDL Cholesterol Urine pH Urine WBC (Auto) 25.0 H Urine Creatinine Urine Total Protein Fluid Total Protein Vancomycin Trough Rheumatoid Factor Complement C4 Miscellaneous Test Crossmatch 09/09/16 09/09/16 09/10/16 17:33 23:13 05:09 WBC RBC Hgb Hct MCV MCH MCHC RDW Plt Count Lymph % (Auto) [place] % (Auto) Lymph # [place] # Baso # Seg Neutrophils % Seg Neuts % (Manual) Lymphocytes % (Manual) Monocytes % (Manual) Eosinophils % (Manual) Basophils % (Manual) Nucleated RBC % Seg Neutrophils # Seg Neutrophils # Man Lymphocytes # (Manual) Monocytes # (Manual) Eosinophils # (Manual) PT INR Fibrinogen dRVVT Confirm Interp Factor V Activity POC ABG pH POC ABG pCO2 POC ABG pO2 74 L ABG pO2 ABG HCO3 ABG Base Excess ABG Hemoglobin Oxyhemoglobin Sodium Potassium Chloride Carbon Dioxide BUN Creatinine Glucose POC Glucose 211 H 215 H Lactic Acid Calcium Phosphorus Magnesium Direct Bilirubin AST ALT Alkaline Phosphatase Lactate Dehydrogenase Troponin T C-Reactive Protein Total Protein Albumin Prealbumin Triglycerides Cholesterol LDL Cholesterol Direct HDL Cholesterol Urine pH Urine WBC (Auto) Urine Creatinine Urine Total Protein Fluid Total Protein Vancomycin Trough Rheumatoid Factor Complement C4 Miscellaneous Test Crossmatch 09/10/16 09/10/16 09/10/16 05:17 05:17 11:31 WBC 15.8 H RBC 3.25 L Hgb 7.3 L Hct 22.9 L MCV 71 L MCH 23 L MCHC RDW 18.4 H Plt Count Lymph % (Auto) [place] % (Auto) Lymph # [place] # Baso # Seg Neutrophils % Seg Neuts % (Manual) 91.0 H Lymphocytes % (Manual) 4.0 L Monocytes % (Manual) Eosinophils % (Manual) Basophils % (Manual) Nucleated RBC % Seg Neutrophils # Seg Neutrophils # Man 14.4 H Lymphocytes # (Manual) 0.6 L Monocytes # (Manual) Eosinophils # (Manual) PT INR Fibrinogen dRVVT Confirm Interp Factor V Activity POC ABG pH POC ABG pCO2 POC ABG pO2 ABG pO2 ABG HCO3 ABG Base Excess ABG Hemoglobin Oxyhemoglobin Sodium Potassium Chloride Carbon Dioxide 21 L BUN 93 H Creatinine 2.9 H Glucose 146 H POC Glucose 188 H Lactic Acid Calcium 8.1 L Phosphorus Magnesium Direct Bilirubin AST ALT Alkaline Phosphatase Lactate Dehydrogenase Troponin T C-Reactive Protein Total Protein Albumin Prealbumin Triglycerides Cholesterol LDL Cholesterol Direct HDL Cholesterol Urine pH Urine WBC (Auto) Urine Creatinine Urine Total Protein Fluid Total Protein Vancomycin Trough Rheumatoid Factor Complement C4 Miscellaneous Test Crossmatch 09/10/16 09/10/16 09/10/16 13:17 17:20 23:32 WBC RBC Hgb Hct MCV MCH MCHC RDW Plt Count Lymph % (Auto) [place] % (Auto) Lymph # [place] # Baso # Seg Neutrophils % Seg Neuts % (Manual) Lymphocytes % (Manual) Monocytes % (Manual) Eosinophils % (Manual) Basophils % (Manual) Nucleated RBC % Seg Neutrophils # Seg Neutrophils # Man Lymphocytes # (Manual) Monocytes # (Manual) Eosinophils # (Manual) PT INR Fibrinogen dRVVT Confirm Interp Factor V Activity POC ABG pH POC ABG pCO2 POC ABG pO2 ABG pO2 ABG HCO3 ABG Base Excess ABG Hemoglobin Oxyhemoglobin Sodium Potassium Chloride Carbon Dioxide BUN Creatinine Glucose POC Glucose 199 H 186 H Lactic Acid Calcium Phosphorus Magnesium Direct Bilirubin AST ALT Alkaline Phosphatase Lactate Dehydrogenase Troponin T C-Reactive Protein Total Protein Albumin Prealbumin Triglycerides Cholesterol LDL Cholesterol Direct HDL Cholesterol Urine pH Urine WBC (Auto) Urine Creatinine Urine Total Protein Fluid Total Protein Vancomycin Trough Rheumatoid Factor Complement C4 Miscellaneous Test Crossmatch See Detail 09/11/16 09/11/16 09/11/16 05:10 05:10 05:17 WBC 28.4 H RBC Hgb 9.2 L Hct 29.3 L D MCV 73 L MCH 23 L MCHC RDW 18.9 H Plt Count 452 H Lymph % (Auto) [place] % (Auto) Lymph # [place] # Baso # Seg Neutrophils % Seg Neuts % (Manual) 89.5 H Lymphocytes % (Manual) 2.0 L Monocytes % (Manual) Eosinophils % (Manual) Basophils % (Manual) Nucleated RBC % Seg Neutrophils # Seg Neutrophils # Man 25.4 H Lymphocytes # (Manual) 0.6 L Monocytes # (Manual) 1.3 H Eosinophils # (Manual) PT INR Fibrinogen dRVVT Confirm Interp Factor V Activity POC ABG pH POC ABG pCO2 POC ABG pO2 ABG pO2 ABG HCO3 ABG Base Excess ABG Hemoglobin Oxyhemoglobin Sodium 136 L Potassium Chloride Carbon Dioxide 18 L BUN 107 H Creatinine 2.6 H Glucose 187 H POC Glucose 230 H Lactic Acid Calcium 8.3 L Phosphorus Magnesium Direct Bilirubin AST ALT Alkaline Phosphatase Lactate Dehydrogenase Troponin T C-Reactive Protein Total Protein Albumin Prealbumin Triglycerides Cholesterol LDL Cholesterol Direct HDL Cholesterol Urine pH Urine WBC (Auto) Urine Creatinine Urine Total Protein Fluid Total Protein Vancomycin Trough Rheumatoid Factor Complement C4 Miscellaneous Test Crossmatch 09/11/16 09/11/16 09/11/16 05:55 12:02 17:32 WBC RBC Hgb Hct MCV MCH MCHC RDW Plt Count Lymph % (Auto) [place] % (Auto) Lymph # [place] # Baso # Seg Neutrophils % Seg Neuts % (Manual) Lymphocytes % (Manual) Monocytes % (Manual) Eosinophils % (Manual) Basophils % (Manual) Nucleated RBC % Seg Neutrophils # Seg Neutrophils # Man Lymphocytes # (Manual) Monocytes # (Manual) Eosinophils # (Manual) PT INR Fibrinogen dRVVT Confirm Interp Factor V Activity POC ABG pH POC ABG pCO2 33.8 L POC ABG pO2 ABG pO2 ABG HCO3 ABG Base Excess ABG Hemoglobin Oxyhemoglobin Sodium Potassium Chloride Carbon Dioxide BUN Creatinine Glucose POC Glucose 191 H 239 H Lactic Acid Calcium Phosphorus Magnesium Direct Bilirubin AST ALT Alkaline Phosphatase Lactate Dehydrogenase Troponin T C-Reactive Protein Total Protein Albumin Prealbumin Triglycerides Cholesterol LDL Cholesterol Direct HDL Cholesterol Urine pH Urine WBC (Auto) Urine Creatinine Urine Total Protein Fluid Total Protein Vancomycin Trough Rheumatoid Factor Complement C4 Miscellaneous Test Crossmatch 09/11/16 09/12/16 09/12/16 23:52 05:09 05:32 WBC RBC Hgb Hct MCV MCH MCHC RDW Plt Count Lymph % (Auto) [place] % (Auto) Lymph # [place] # Baso # Seg Neutrophils % Seg Neuts % (Manual) Lymphocytes % (Manual) Monocytes % (Manual) Eosinophils % (Manual) Basophils % (Manual) Nucleated RBC % Seg Neutrophils # Seg Neutrophils # Man Lymphocytes # (Manual) Monocytes # (Manual) Eosinophils # (Manual) PT INR Fibrinogen dRVVT Confirm Interp Factor V Activity POC ABG pH POC ABG pCO2 34.6 L POC ABG pO2 ABG pO2 ABG HCO3 ABG Base Excess ABG Hemoglobin Oxyhemoglobin Sodium Potassium Chloride Carbon Dioxide BUN Creatinine Glucose POC Glucose 265 H 184 H Lactic Acid Calcium Phosphorus Magnesium Direct Bilirubin AST ALT Alkaline Phosphatase Lactate Dehydrogenase Troponin T C-Reactive Protein Total Protein Albumin Prealbumin Triglycerides Cholesterol LDL Cholesterol Direct HDL Cholesterol Urine pH Urine WBC (Auto) Urine Creatinine Urine Total Protein Fluid Total Protein Vancomycin Trough Rheumatoid Factor Complement C4 Miscellaneous Test Crossmatch 09/12/16 09/12/16 09/12/16 06:45 06:45 07:22 WBC 31.7 H RBC 3.54 L Hgb 8.3 L Hct 25.9 L MCV 73 L MCH 23 L MCHC RDW 18.9 H Plt Count Lymph % (Auto) [place] % (Auto) Lymph # [place] # Baso # Seg Neutrophils % Seg Neuts % (Manual) 88.5 H Lymphocytes % (Manual) 4.5 L Monocytes % (Manual) Eosinophils % (Manual) Basophils % (Manual) Nucleated RBC % Seg Neutrophils # Seg Neutrophils # Man 28.1 H Lymphocytes # (Manual) Monocytes # (Manual) 1.0 H Eosinophils # (Manual) PT INR Fibrinogen dRVVT Confirm Interp Factor V Activity POC ABG pH POC ABG pCO2 POC ABG pO2 ABG pO2 ABG HCO3 ABG Base Excess ABG Hemoglobin Oxyhemoglobin Sodium Potassium Chloride Carbon Dioxide 20 L BUN 115 H Creatinine 2.7 H Glucose 165 H POC Glucose Lactic Acid Calcium 8.0 L Phosphorus Magnesium Direct Bilirubin AST ALT Alkaline Phosphatase Lactate Dehydrogenase Troponin T C-Reactive Protein Total Protein Albumin Prealbumin Triglycerides 217 H Cholesterol LDL Cholesterol Direct HDL Cholesterol Urine pH Urine WBC (Auto) Urine Creatinine Urine Total Protein Fluid Total Protein Vancomycin Trough Rheumatoid Factor Complement C4 Miscellaneous Test Crossmatch 09/12/16 09/12/16 09/12/16 07:22 09:59 12:21 WBC RBC Hgb Hct MCV MCH MCHC RDW Plt Count Lymph % (Auto) [place] % (Auto) Lymph # [place] # Baso # Seg Neutrophils % Seg Neuts % (Manual) Lymphocytes % (Manual) Monocytes % (Manual) Eosinophils % (Manual) Basophils % (Manual) Nucleated RBC % Seg Neutrophils # Seg Neutrophils # Man Lymphocytes # (Manual) Monocytes # (Manual) Eosinophils # (Manual) PT INR Fibrinogen dRVVT Confirm Interp Positive H Factor V Activity POC ABG pH POC ABG pCO2 POC ABG pO2 ABG pO2 ABG HCO3 ABG Base Excess ABG Hemoglobin Oxyhemoglobin Sodium Potassium Chloride Carbon Dioxide BUN Creatinine Glucose POC Glucose 224 H Lactic Acid Calcium Phosphorus Magnesium Direct Bilirubin AST ALT Alkaline Phosphatase Lactate Dehydrogenase Troponin T C-Reactive Protein 1.70 H Total Protein Albumin Prealbumin Triglycerides Cholesterol LDL Cholesterol Direct HDL Cholesterol Urine pH Urine WBC (Auto) Urine Creatinine Urine Total Protein Fluid Total Protein Vancomycin Trough Rheumatoid Factor Complement C4 Miscellaneous Test Crossmatch 09/12/16 09/12/16 09/13/16 16:51 23:28 04:00 WBC 45.0 H* RBC Hgb 9.4 L Hct MCV 75 L MCH 23 L MCHC RDW 19.0 H Plt Count 470 H Lymph % (Auto) [place] % (Auto) Lymph # [place] # Baso # Seg Neutrophils % Seg Neuts % (Manual) 89.0 H Lymphocytes % (Manual) 5.0 L Monocytes % (Manual) Eosinophils % (Manual) Basophils % (Manual) Nucleated RBC % Seg Neutrophils # Seg Neutrophils # Man 40.1 H Lymphocytes # (Manual) Monocytes # (Manual) Eosinophils # (Manual) PT INR Fibrinogen dRVVT Confirm Interp Factor V Activity POC ABG pH POC ABG pCO2 POC ABG pO2 ABG pO2 ABG HCO3 ABG Base Excess ABG Hemoglobin Oxyhemoglobin Sodium Potassium Chloride Carbon Dioxide BUN Creatinine Glucose POC Glucose 169 H 150 H Lactic Acid Calcium Phosphorus Magnesium Direct Bilirubin AST ALT Alkaline Phosphatase Lactate Dehydrogenase Troponin T C-Reactive Protein Total Protein Albumin Prealbumin Triglycerides Cholesterol LDL Cholesterol Direct HDL Cholesterol Urine pH Urine WBC (Auto) Urine Creatinine Urine Total Protein Fluid Total Protein Vancomycin Trough Rheumatoid Factor Complement C4 Miscellaneous Test Crossmatch 09/13/16 09/13/16 09/13/16 04:00 11:26 17:31 WBC RBC Hgb Hct MCV MCH MCHC RDW Plt Count Lymph % (Auto) [place] % (Auto) Lymph # [place] # Baso # Seg Neutrophils % Seg Neuts % (Manual) Lymphocytes % (Manual) Monocytes % (Manual) Eosinophils % (Manual) Basophils % (Manual) Nucleated RBC % Seg Neutrophils # Seg Neutrophils # Man Lymphocytes # (Manual) Monocytes # (Manual) Eosinophils # (Manual) PT INR Fibrinogen dRVVT Confirm Interp Factor V Activity POC ABG pH POC ABG pCO2 POC ABG pO2 ABG pO2 ABG HCO3 ABG Base Excess ABG Hemoglobin Oxyhemoglobin Sodium Potassium Chloride Carbon Dioxide 20 L BUN 116 H Creatinine 3.0 H Glucose 172 H POC Glucose 140 H 183 H Lactic Acid Calcium Phosphorus Magnesium Direct Bilirubin AST ALT Alkaline Phosphatase Lactate Dehydrogenase Troponin T C-Reactive Protein Total Protein 6.2 L Albumin 2.9 L Prealbumin Triglycerides Cholesterol LDL Cholesterol Direct HDL Cholesterol Urine pH Urine WBC (Auto) Urine Creatinine Urine Total Protein Fluid Total Protein Vancomycin Trough Rheumatoid Factor Complement C4 Miscellaneous Test Crossmatch 09/13/16 09/14/16 09/14/16 23:23 04:06 04:07 WBC 29.4 H RBC Hgb 8.9 L Hct 27.3 L MCV 75 L MCH 24 L MCHC RDW 19.1 H Plt Count Lymph % (Auto) [place] % (Auto) Lymph # [place] # Baso # Seg Neutrophils % Seg Neuts % (Manual) 84.0 H Lymphocytes % (Manual) 6.0 L Monocytes % (Manual) 9.0 H Eosinophils % (Manual) Basophils % (Manual) Nucleated RBC % Seg Neutrophils # Seg Neutrophils # Man 24.7 H Lymphocytes # (Manual) Monocytes # (Manual) 2.6 H Eosinophils # (Manual) PT INR Fibrinogen dRVVT Confirm Interp Factor V Activity POC ABG pH 7.342 L POC ABG pCO2 POC ABG pO2 116 H ABG pO2 ABG HCO3 ABG Base Excess ABG Hemoglobin Oxyhemoglobin Sodium Potassium Chloride Carbon Dioxide BUN Creatinine Glucose POC Glucose 154 H Lactic Acid Calcium Phosphorus Magnesium Direct Bilirubin AST ALT Alkaline Phosphatase Lactate Dehydrogenase Troponin T C-Reactive Protein Total Protein Albumin Prealbumin Triglycerides Cholesterol LDL Cholesterol Direct HDL Cholesterol Urine pH Urine WBC (Auto) Urine Creatinine Urine Total Protein Fluid Total Protein Vancomycin Trough Rheumatoid Factor Complement C4 Miscellaneous Test Crossmatch 09/14/16 09/14/16 09/14/16 04:07 05:29 12:19 WBC RBC Hgb Hct MCV MCH MCHC RDW Plt Count Lymph % (Auto) [place] % (Auto) Lymph # [place] # Baso # Seg Neutrophils % Seg Neuts % (Manual) Lymphocytes % (Manual) Monocytes % (Manual) Eosinophils % (Manual) Basophils % (Manual) Nucleated RBC % Seg Neutrophils # Seg Neutrophils # Man Lymphocytes # (Manual) Monocytes # (Manual) Eosinophils # (Manual) PT INR Fibrinogen dRVVT Confirm Interp Factor V Activity POC ABG pH POC ABG pCO2 POC ABG pO2 ABG pO2 ABG HCO3 ABG Base Excess ABG Hemoglobin Oxyhemoglobin Sodium 136 L Potassium Chloride Carbon Dioxide 18 L BUN 121 H Creatinine 2.8 H Glucose 214 H POC Glucose 239 H 181 H Lactic Acid Calcium Phosphorus Magnesium Direct Bilirubin AST ALT Alkaline Phosphatase Lactate Dehydrogenase Troponin T C-Reactive Protein Total Protein Albumin Prealbumin Triglycerides Cholesterol LDL Cholesterol Direct HDL Cholesterol Urine pH Urine WBC (Auto) Urine Creatinine Urine Total Protein Fluid Total Protein Vancomycin Trough Rheumatoid Factor Complement C4 Miscellaneous Test Crossmatch 09/14/16 09/14/16 09/15/16 18:12 23:37 05:00 WBC 26.1 H RBC 3.05 L Hgb 7.2 L Hct 22.9 L MCV 75 L MCH 24 L MCHC RDW 19.0 H Plt Count Lymph % (Auto) [place] % (Auto) Lymph # [place] # Baso # Seg Neutrophils % Seg Neuts % (Manual) Lymphocytes % (Manual) Monocytes % (Manual) Eosinophils % (Manual) Basophils % (Manual) Nucleated RBC % Seg Neutrophils # Seg Neutrophils # Man Lymphocytes # (Manual) Monocytes # (Manual) Eosinophils # (Manual) PT INR Fibrinogen dRVVT Confirm Interp Factor V Activity POC ABG pH POC ABG pCO2 POC ABG pO2 ABG pO2 ABG HCO3 ABG Base Excess ABG Hemoglobin Oxyhemoglobin Sodium Potassium Chloride Carbon Dioxide BUN Creatinine Glucose POC Glucose 266 H 154 H Lactic Acid Calcium Phosphorus Magnesium Direct Bilirubin AST ALT Alkaline Phosphatase Lactate Dehydrogenase Troponin T C-Reactive Protein Total Protein Albumin Prealbumin Triglycerides Cholesterol LDL Cholesterol Direct HDL Cholesterol Urine pH Urine WBC (Auto) Urine Creatinine Urine Total Protein Fluid Total Protein Vancomycin Trough Rheumatoid Factor Complement C4 Miscellaneous Test Crossmatch 09/15/16 09/15/16 09/15/16 05:00 05:17 12:45 WBC RBC Hgb Hct MCV MCH MCHC RDW Plt Count Lymph % (Auto) [place] % (Auto) Lymph # [place] # Baso # Seg Neutrophils % Seg Neuts % (Manual) Lymphocytes % (Manual) Monocytes % (Manual) Eosinophils % (Manual) Basophils % (Manual) Nucleated RBC % Seg Neutrophils # Seg Neutrophils # Man Lymphocytes # (Manual) Monocytes # (Manual) Eosinophils # (Manual) PT INR Fibrinogen dRVVT Confirm Interp Factor V Activity POC ABG pH POC ABG pCO2 POC ABG pO2 ABG pO2 ABG HCO3 ABG Base Excess ABG Hemoglobin Oxyhemoglobin Sodium Potassium 5.2 H Chloride Carbon Dioxide 18 L BUN 139 H Creatinine 3.7 H Glucose 227 H POC Glucose 226 H 244 H Lactic Acid Calcium 8.3 L Phosphorus Magnesium Direct Bilirubin AST ALT Alkaline Phosphatase Lactate Dehydrogenase Troponin T C-Reactive Protein Total Protein Albumin Prealbumin Triglycerides Cholesterol LDL Cholesterol Direct HDL Cholesterol Urine pH Urine WBC (Auto) Urine Creatinine Urine Total Protein Fluid Total Protein Vancomycin Trough Rheumatoid Factor Complement C4 Miscellaneous Test Crossmatch 09/15/16 09/15/16 09/15/16 14:32 17:33 23:35 WBC RBC Hgb Hct MCV MCH MCHC RDW Plt Count Lymph % (Auto) [place] % (Auto) Lymph # [place] # Baso # Seg Neutrophils % Seg Neuts % (Manual) Lymphocytes % (Manual) Monocytes % (Manual) Eosinophils % (Manual) Basophils % (Manual) Nucleated RBC % Seg Neutrophils # Seg Neutrophils # Man Lymphocytes # (Manual) Monocytes # (Manual) Eosinophils # (Manual) PT INR Fibrinogen dRVVT Confirm Interp Factor V Activity POC ABG pH POC ABG pCO2 27.7 L POC ABG pO2 120 H ABG pO2 ABG HCO3 ABG Base Excess ABG Hemoglobin Oxyhemoglobin Sodium Potassium Chloride Carbon Dioxide BUN Creatinine Glucose POC Glucose 232 H 167 H Lactic Acid Calcium Phosphorus Magnesium Direct Bilirubin AST ALT Alkaline Phosphatase Lactate Dehydrogenase Troponin T C-Reactive Protein Total Protein Albumin Prealbumin Triglycerides Cholesterol LDL Cholesterol Direct HDL Cholesterol Urine pH Urine WBC (Auto) Urine Creatinine Urine Total Protein Fluid Total Protein Vancomycin Trough Rheumatoid Factor Complement C4 Miscellaneous Test Crossmatch 09/16/16 09/16/16 09/16/16 03:58 10:27 10:27 WBC 19.0 H RBC 2.77 L Hgb 6.5 L Hct 20.9 L MCV 76 L MCH 23 L MCHC RDW 19.3 H Plt Count Lymph % (Auto) 11.0 L [place] % (Auto) Lymph # [place] # 1.1 H Baso # Seg Neutrophils % 82.5 H Seg Neuts % (Manual) Lymphocytes % (Manual) Monocytes % (Manual) Eosinophils % (Manual) Basophils % (Manual) Nucleated RBC % Seg Neutrophils # 15.7 H Seg Neutrophils # Man Lymphocytes # (Manual) Monocytes # (Manual) Eosinophils # (Manual) PT INR Fibrinogen dRVVT Confirm Interp Factor V Activity POC ABG pH POC ABG pCO2 POC ABG pO2 ABG pO2 ABG HCO3 ABG Base Excess ABG Hemoglobin Oxyhemoglobin Sodium Potassium Chloride 109.3 H Carbon Dioxide 18 L BUN 139 H Creatinine 4.1 H Glucose 144 H POC Glucose 146 H Lactic Acid Calcium 8.1 L Phosphorus Magnesium Direct Bilirubin AST ALT Alkaline Phosphatase Lactate Dehydrogenase Troponin T C-Reactive Protein Total Protein Albumin Prealbumin Triglycerides Cholesterol LDL Cholesterol Direct HDL Cholesterol Urine pH Urine WBC (Auto) Urine Creatinine Urine Total Protein Fluid Total Protein Vancomycin Trough Rheumatoid Factor Complement C4 Miscellaneous Test Crossmatch 09/16/16 09/16/16 09/16/16 12:04 12:10 13:55 WBC RBC Hgb Hct MCV MCH MCHC RDW Plt Count Lymph % (Auto) [place] % (Auto) Lymph # [place] # Baso # Seg Neutrophils % Seg Neuts % (Manual) Lymphocytes % (Manual) Monocytes % (Manual) Eosinophils % (Manual) Basophils % (Manual) Nucleated RBC % Seg Neutrophils # Seg Neutrophils # Man Lymphocytes # (Manual) Monocytes # (Manual) Eosinophils # (Manual) PT INR Fibrinogen dRVVT Confirm Interp Factor V Activity POC ABG pH POC ABG pCO2 32.9 L POC ABG pO2 ABG pO2 ABG HCO3 ABG Base Excess ABG Hemoglobin Oxyhemoglobin Sodium Potassium Chloride Carbon Dioxide BUN Creatinine Glucose POC Glucose 185 H Lactic Acid Calcium Phosphorus Magnesium Direct Bilirubin AST ALT Alkaline Phosphatase Lactate Dehydrogenase Troponin T C-Reactive Protein Total Protein Albumin Prealbumin Triglycerides Cholesterol LDL Cholesterol Direct HDL Cholesterol Urine pH Urine WBC (Auto) Urine Creatinine Urine Total Protein Fluid Total Protein Vancomycin Trough Rheumatoid Factor Complement C4 Miscellaneous Test Crossmatch See Detail 09/16/16 09/16/16 09/16/16 17:55 19:19 23:48 WBC RBC Hgb Hct MCV MCH MCHC RDW Plt Count Lymph % (Auto) Ada % (Auto) Lymph # Ada # Baso # Seg Neutrophils % Seg Neuts % (Manual) Lymphocytes % (Manual) Monocytes % (Manual) Eosinophils % (Manual) Basophils % (Manual) Nucleated RBC % Seg Neutrophils # Seg Neutrophils # Man Lymphocytes # (Manual) Monocytes # (Manual) Eosinophils # (Manual) PT INR Fibrinogen dRVVT Confirm Interp Factor V Activity POC ABG pH POC ABG pCO2 POC ABG pO2 ABG pO2 ABG HCO3 ABG Base Excess ABG Hemoglobin Oxyhemoglobin Sodium Potassium Chloride Carbon Dioxide BUN Creatinine Glucose POC Glucose 222 H 107 H Lactic Acid Calcium Phosphorus Magnesium Direct Bilirubin AST ALT Alkaline Phosphatase Lactate Dehydrogenase Troponin T C-Reactive Protein Total Protein Albumin Prealbumin Triglycerides Cholesterol LDL Cholesterol Direct HDL Cholesterol Urine pH Urine WBC (Auto) Urine Creatinine 47.4 H Urine Total Protein 16 H Fluid Total Protein Vancomycin Trough Rheumatoid Factor Complement C4 Miscellaneous Test Crossmatch 09/17/16 09/17/16 09/17/16 03:45 03:45 04:55 WBC 19.6 H RBC 3.41 L Hgb 8.5 L Hct 26.7 L MCV 78 L MCH 25 L MCHC RDW 19.9 H Plt Count Lymph % (Auto) 9.3 L Ada % (Auto) Lymph # Ada # 1.2 H Baso # Seg Neutrophils % 83.9 H Seg Neuts % (Manual) Lymphocytes % (Manual) Monocytes % (Manual) Eosinophils % (Manual) Basophils % (Manual) Nucleated RBC % Seg Neutrophils # 16.4 H Seg Neutrophils # Man Lymphocytes # (Manual) Monocytes # (Manual) Eosinophils # (Manual) PT INR Fibrinogen dRVVT Confirm Interp Factor V Activity POC ABG pH POC ABG pCO2 POC ABG pO2 ABG pO2 ABG HCO3 ABG Base Excess ABG Hemoglobin Oxyhemoglobin Sodium 146 H Potassium 5.1 H Chloride 110.9 H Carbon Dioxide 16 L BUN 146 H Creatinine 4.0 H Glucose 108 H POC Glucose 133 H Lactic Acid Calcium Phosphorus Magnesium 3.00 H Direct Bilirubin AST ALT Alkaline Phosphatase Lactate Dehydrogenase Troponin T C-Reactive Protein Total Protein Albumin Prealbumin Triglycerides Cholesterol LDL Cholesterol Direct HDL Cholesterol Urine pH Urine WBC (Auto) Urine Creatinine Urine Total Protein Fluid Total Protein Vancomycin Trough Rheumatoid Factor Complement C4 Miscellaneous Test Crossmatch 09/17/16 09/17/16 09/17/16 11:15 17:33 23:47 WBC RBC Hgb Hct MCV MCH MCHC RDW Plt Count Lymph % (Auto) [place] % (Auto) Lymph # [place] # Baso # Seg Neutrophils % Seg Neuts % (Manual) Lymphocytes % (Manual) Monocytes % (Manual) Eosinophils % (Manual) Basophils % (Manual) Nucleated RBC % Seg Neutrophils # Seg Neutrophils # Man Lymphocytes # (Manual) Monocytes # (Manual) Eosinophils # (Manual) PT INR Fibrinogen dRVVT Confirm Interp Factor V Activity POC ABG pH POC ABG pCO2 POC ABG pO2 ABG pO2 ABG HCO3 ABG Base Excess ABG Hemoglobin Oxyhemoglobin Sodium Potassium Chloride Carbon Dioxide BUN Creatinine Glucose POC Glucose 176 H 246 H 148 H Lactic Acid Calcium Phosphorus Magnesium Direct Bilirubin AST ALT Alkaline Phosphatase Lactate Dehydrogenase Troponin T C-Reactive Protein Total Protein Albumin Prealbumin Triglycerides Cholesterol LDL Cholesterol Direct HDL Cholesterol Urine pH Urine WBC (Auto) Urine Creatinine Urine Total Protein Fluid Total Protein Vancomycin Trough Rheumatoid Factor Complement C4 Miscellaneous Test Crossmatch 09/18/16 09/18/16 09/18/16 05:33 08:31 08:31 WBC 18.0 H RBC 3.17 L Hgb 9.0 L Hct 25.7 L MCV MCH MCHC 35 H RDW 20.4 H Plt Count Lymph % (Auto) [place] % (Auto) Lymph # [place] # Baso # Seg Neutrophils % Seg Neuts % (Manual) Lymphocytes % (Manual) Monocytes % (Manual) Eosinophils % (Manual) Basophils % (Manual) Nucleated RBC % Seg Neutrophils # Seg Neutrophils # Man Lymphocytes # (Manual) Monocytes # (Manual) Eosinophils # (Manual) PT INR Fibrinogen dRVVT Confirm Interp Factor V Activity POC ABG pH POC ABG pCO2 POC ABG pO2 ABG pO2 ABG HCO3 ABG Base Excess ABG Hemoglobin Oxyhemoglobin Sodium Potassium Chloride Carbon Dioxide 15 L BUN 124 H Creatinine 3.8 H Glucose POC Glucose 120 H Lactic Acid Calcium 8.1 L Phosphorus Magnesium Direct Bilirubin AST ALT Alkaline Phosphatase Lactate Dehydrogenase Troponin T C-Reactive Protein Total Protein Albumin Prealbumin Triglycerides Cholesterol LDL Cholesterol Direct HDL Cholesterol Urine pH Urine WBC (Auto) Urine Creatinine Urine Total Protein Fluid Total Protein Vancomycin Trough Rheumatoid Factor Complement C4 Miscellaneous Test Crossmatch 09/18/16 09/18/16 09/18/16 12:03 15:34 17:50 WBC RBC Hgb Hct MCV MCH MCHC RDW Plt Count Lymph % (Auto) [place] % (Auto) Lymph # [place] # Baso # Seg Neutrophils % Seg Neuts % (Manual) Lymphocytes % (Manual) Monocytes % (Manual) Eosinophils % (Manual) Basophils % (Manual) Nucleated RBC % Seg Neutrophils # Seg Neutrophils # Man Lymphocytes # (Manual) Monocytes # (Manual) Eosinophils # (Manual) PT INR Fibrinogen dRVVT Confirm Interp Factor V Activity POC ABG pH POC ABG pCO2 25.7 L POC ABG pO2 66 L ABG pO2 ABG HCO3 ABG Base Excess ABG Hemoglobin Oxyhemoglobin Sodium Potassium Chloride Carbon Dioxide BUN Creatinine Glucose POC Glucose 156 H 220 H Lactic Acid Calcium Phosphorus Magnesium Direct Bilirubin AST ALT Alkaline Phosphatase Lactate Dehydrogenase Troponin T C-Reactive Protein Total Protein Albumin Prealbumin Triglycerides Cholesterol LDL Cholesterol Direct HDL Cholesterol Urine pH Urine WBC (Auto) Urine Creatinine Urine Total Protein Fluid Total Protein Vancomycin Trough Rheumatoid Factor Complement C4 Miscellaneous Test Crossmatch 09/19/16 09/19/16 09/19/16 06:21 09:50 09:50 WBC 17.1 H RBC 3.49 L Hgb 9.0 L Hct 28.1 L MCV MCH 26 L MCHC RDW 20.8 H Plt Count Lymph % (Auto) 11.5 L [place] % (Auto) 7.5 H Lymph # Ada # 1.3 H Baso # Seg Neutrophils % 79.8 H Seg Neuts % (Manual) Lymphocytes % (Manual) Monocytes % (Manual) Eosinophils % (Manual) Basophils % (Manual) Nucleated RBC % Seg Neutrophils # 13.7 H Seg Neutrophils # Man Lymphocytes # (Manual) Monocytes # (Manual) Eosinophils # (Manual) PT INR Fibrinogen dRVVT Confirm Interp Factor V Activity POC ABG pH POC ABG pCO2 POC ABG pO2 ABG pO2 ABG HCO3 ABG Base Excess ABG Hemoglobin Oxyhemoglobin Sodium Potassium Chloride 108.6 H Carbon Dioxide 15 L BUN 125 H Creatinine 4.1 H Glucose 124 H POC Glucose 119 H Lactic Acid Calcium Phosphorus Magnesium Direct Bilirubin AST ALT Alkaline Phosphatase Lactate Dehydrogenase Troponin T C-Reactive Protein Total Protein Albumin Prealbumin Triglycerides Cholesterol LDL Cholesterol Direct HDL Cholesterol Urine pH Urine WBC (Auto) Urine Creatinine Urine Total Protein Fluid Total Protein Vancomycin Trough Rheumatoid Factor Complement C4 Miscellaneous Test Crossmatch 09/19/16 09/19/16 09/19/16 11:25 17:53 23:36 WBC RBC Hgb Hct MCV MCH MCHC RDW Plt Count Lymph % (Auto) [place] % (Auto) Lymph # [place] # Baso # Seg Neutrophils % Seg Neuts % (Manual) Lymphocytes % (Manual) Monocytes % (Manual) Eosinophils % (Manual) Basophils % (Manual) Nucleated RBC % Seg Neutrophils # Seg Neutrophils # Man Lymphocytes # (Manual) Monocytes # (Manual) Eosinophils # (Manual) PT INR Fibrinogen dRVVT Confirm Interp Factor V Activity POC ABG pH POC ABG pCO2 POC ABG pO2 ABG pO2 ABG HCO3 ABG Base Excess ABG Hemoglobin Oxyhemoglobin Sodium Potassium Chloride Carbon Dioxide BUN Creatinine Glucose POC Glucose 160 H 245 H 121 H Lactic Acid Calcium Phosphorus Magnesium Direct Bilirubin AST ALT Alkaline Phosphatase Lactate Dehydrogenase Troponin T C-Reactive Protein Total Protein Albumin Prealbumin Triglycerides Cholesterol LDL Cholesterol Direct HDL Cholesterol Urine pH Urine WBC (Auto) Urine Creatinine Urine Total Protein Fluid Total Protein Vancomycin Trough Rheumatoid Factor Complement C4 Miscellaneous Test Crossmatch 09/20/16 09/20/16 09/20/16 04:10 04:10 04:10 WBC 17.0 H RBC 3.21 L Hgb 8.2 L Hct 25.5 L MCV MCH 26 L MCHC RDW 20.9 H Plt Count Lymph % (Auto) [place] % (Auto) Lymph # [place] # Baso # Seg Neutrophils % Seg Neuts % (Manual) Lymphocytes % (Manual) Monocytes % (Manual) Eosinophils % (Manual) Basophils % (Manual) Nucleated RBC % Seg Neutrophils # Seg Neutrophils # Man Lymphocytes # (Manual) Monocytes # (Manual) Eosinophils # (Manual) PT INR Fibrinogen dRVVT Confirm Interp Factor V Activity POC ABG pH POC ABG pCO2 POC ABG pO2 ABG pO2 ABG HCO3 ABG Base Excess ABG Hemoglobin Oxyhemoglobin Sodium Potassium Chloride 111.0 H Carbon Dioxide 16 L BUN 129 H Creatinine 3.7 H Glucose 115 H POC Glucose Lactic Acid Calcium 8.2 L Phosphorus Magnesium Direct Bilirubin AST ALT Alkaline Phosphatase Lactate Dehydrogenase Troponin T C-Reactive Protein Total Protein Albumin Prealbumin Triglycerides 243 H Cholesterol LDL Cholesterol Direct HDL Cholesterol Urine pH Urine WBC (Auto) Urine Creatinine Urine Total Protein Fluid Total Protein Vancomycin Trough Rheumatoid Factor Complement C4 Miscellaneous Test Crossmatch 09/20/16 09/20/16 09/20/16 05:40 11:52 16:50 WBC RBC Hgb Hct MCV MCH MCHC RDW Plt Count Lymph % (Auto) [place] % (Auto) Lymph # [place] # Baso # Seg Neutrophils % Seg Neuts % (Manual) Lymphocytes % (Manual) Monocytes % (Manual) Eosinophils % (Manual) Basophils % (Manual) Nucleated RBC % Seg Neutrophils # Seg Neutrophils # Man Lymphocytes # (Manual) Monocytes # (Manual) Eosinophils # (Manual) PT INR Fibrinogen dRVVT Confirm Interp Factor V Activity POC ABG pH POC ABG pCO2 POC ABG pO2 ABG pO2 ABG HCO3 ABG Base Excess ABG Hemoglobin Oxyhemoglobin Sodium Potassium Chloride Carbon Dioxide BUN Creatinine Glucose POC Glucose 131 H 183 H 236 H Lactic Acid Calcium Phosphorus Magnesium Direct Bilirubin AST ALT Alkaline Phosphatase Lactate Dehydrogenase Troponin T C-Reactive Protein Total Protein Albumin Prealbumin Triglycerides Cholesterol LDL Cholesterol Direct HDL Cholesterol Urine pH Urine WBC (Auto) Urine Creatinine Urine Total Protein Fluid Total Protein Vancomycin Trough Rheumatoid Factor Complement C4 Miscellaneous Test Crossmatch 09/20/16 09/21/16 09/21/16 23:51 03:30 04:44 WBC RBC Hgb Hct MCV MCH MCHC RDW Plt Count Lymph % (Auto) [place] % (Auto) Lymph # [place] # Baso # Seg Neutrophils % Seg Neuts % (Manual) Lymphocytes % (Manual) Monocytes % (Manual) Eosinophils % (Manual) Basophils % (Manual) Nucleated RBC % Seg Neutrophils # Seg Neutrophils # Man Lymphocytes # (Manual) Monocytes # (Manual) Eosinophils # (Manual) PT INR Fibrinogen dRVVT Confirm Interp Factor V Activity POC ABG pH POC ABG pCO2 POC ABG pO2 ABG pO2 ABG HCO3 ABG Base Excess ABG Hemoglobin Oxyhemoglobin Sodium Potassium Chloride Carbon Dioxide BUN Creatinine Glucose POC Glucose 114 H 141 H Lactic Acid Calcium Phosphorus Magnesium 2.70 H Direct Bilirubin AST ALT Alkaline Phosphatase Lactate Dehydrogenase Troponin T C-Reactive Protein Total Protein Albumin Prealbumin Triglycerides Cholesterol LDL Cholesterol Direct HDL Cholesterol Urine pH Urine WBC (Auto) Urine Creatinine Urine Total Protein Fluid Total Protein Vancomycin Trough Rheumatoid Factor Complement C4 Miscellaneous Test Crossmatch 09/21/16 09/21/16 09/21/16 07:45 07:45 10:01 WBC 13.8 H RBC 2.94 L Hgb 7.5 L Hct 23.5 L MCV MCH 26 L MCHC RDW 21.2 H Plt Count Lymph % (Auto) 6.9 L Ada % (Auto) 9.4 H Lymph # 0.9 L Ada # 1.3 H Baso # Seg Neutrophils % 83.2 H Seg Neuts % (Manual) Lymphocytes % (Manual) Monocytes % (Manual) Eosinophils % (Manual) Basophils % (Manual) Nucleated RBC % Seg Neutrophils # 11.5 H Seg Neutrophils # Man Lymphocytes # (Manual) Monocytes # (Manual) Eosinophils # (Manual) PT INR Fibrinogen dRVVT Confirm Interp Factor V Activity POC ABG pH 7.308 L POC ABG pCO2 31.9 L POC ABG pO2 148 H ABG pO2 ABG HCO3 ABG Base Excess ABG Hemoglobin Oxyhemoglobin Sodium 147 H Potassium Chloride 114.2 H Carbon Dioxide 15 L BUN 120 H Creatinine 3.9 H Glucose 156 H POC Glucose Lactic Acid Calcium 8.2 L Phosphorus Magnesium Direct Bilirubin AST ALT Alkaline Phosphatase Lactate Dehydrogenase Troponin T C-Reactive Protein Total Protein Albumin Prealbumin Triglycerides Cholesterol LDL Cholesterol Direct HDL Cholesterol Urine pH Urine WBC (Auto) Urine Creatinine Urine Total Protein Fluid Total Protein Vancomycin Trough Rheumatoid Factor Complement C4 Miscellaneous Test Crossmatch 09/21/16 09/21/16 09/21/16 12:00 12:03 13:00 WBC RBC Hgb Hct MCV MCH MCHC RDW Plt Count Lymph % (Auto) [place] % (Auto) Lymph # [place] # Baso # Seg Neutrophils % Seg Neuts % (Manual) Lymphocytes % (Manual) Monocytes % (Manual) Eosinophils % (Manual) Basophils % (Manual) Nucleated RBC % Seg Neutrophils # Seg Neutrophils # Man Lymphocytes # (Manual) Monocytes # (Manual) Eosinophils # (Manual) PT INR Fibrinogen dRVVT Confirm Interp Factor V Activity POC ABG pH POC ABG pCO2 POC ABG pO2 ABG pO2 ABG HCO3 ABG Base Excess ABG Hemoglobin Oxyhemoglobin Sodium Potassium Chloride Carbon Dioxide BUN Creatinine Glucose POC Glucose 163 H Lactic Acid Calcium Phosphorus Magnesium Direct Bilirubin AST ALT Alkaline Phosphatase Lactate Dehydrogenase Troponin T C-Reactive Protein Total Protein Albumin Prealbumin Triglycerides Cholesterol LDL Cholesterol Direct HDL Cholesterol Urine pH Urine WBC (Auto) Urine Creatinine 54.8 H Urine Total Protein Fluid Total Protein Vancomycin Trough 2.3 L Rheumatoid Factor Complement C4 Miscellaneous Test Crossmatch 09/21/16 09/21/16 09/22/16 16:51 23:17 06:27 WBC RBC Hgb Hct MCV MCH MCHC RDW Plt Count Lymph % (Auto) [place] % (Auto) Lymph # [place] # Baso # Seg Neutrophils % Seg Neuts % (Manual) Lymphocytes % (Manual) Monocytes % (Manual) Eosinophils % (Manual) Basophils % (Manual) Nucleated RBC % Seg Neutrophils # Seg Neutrophils # Man Lymphocytes # (Manual) Monocytes # (Manual) Eosinophils # (Manual) PT INR Fibrinogen dRVVT Confirm Interp Factor V Activity POC ABG pH POC ABG pCO2 POC ABG pO2 ABG pO2 ABG HCO3 ABG Base Excess ABG Hemoglobin Oxyhemoglobin Sodium Potassium Chloride Carbon Dioxide BUN Creatinine Glucose POC Glucose 206 H 114 H 115 H Lactic Acid Calcium Phosphorus Magnesium Direct Bilirubin AST ALT Alkaline Phosphatase Lactate Dehydrogenase Troponin T C-Reactive Protein Total Protein Albumin Prealbumin Triglycerides Cholesterol LDL Cholesterol Direct HDL Cholesterol Urine pH Urine WBC (Auto) Urine Creatinine Urine Total Protein Fluid Total Protein Vancomycin Trough Rheumatoid Factor Complement C4 Miscellaneous Test Crossmatch 09/22/16 09/22/16 09/22/16 07:50 07:50 12:00 WBC 17.8 H RBC 3.04 L Hgb 8.0 L Hct 24.7 L MCV MCH 26 L MCHC RDW 21.6 H Plt Count Lymph % (Auto) [place] % (Auto) Lymph # [place] # Baso # Seg Neutrophils % Seg Neuts % (Manual) Lymphocytes % (Manual) Monocytes % (Manual) Eosinophils % (Manual) Basophils % (Manual) Nucleated RBC % Seg Neutrophils # Seg Neutrophils # Man Lymphocytes # (Manual) Monocytes # (Manual) Eosinophils # (Manual) PT INR Fibrinogen dRVVT Confirm Interp Factor V Activity POC ABG pH POC ABG pCO2 POC ABG pO2 ABG pO2 ABG HCO3 ABG Base Excess ABG Hemoglobin Oxyhemoglobin Sodium 150 H Potassium Chloride 118.2 H Carbon Dioxide 14 L BUN 111 H Creatinine 3.7 H Glucose 157 H POC Glucose 183 H Lactic Acid Calcium Phosphorus Magnesium Direct Bilirubin AST ALT Alkaline Phosphatase Lactate Dehydrogenase Troponin T C-Reactive Protein Total Protein Albumin Prealbumin Triglycerides Cholesterol LDL Cholesterol Direct HDL Cholesterol Urine pH Urine WBC (Auto) Urine Creatinine Urine Total Protein Fluid Total Protein Vancomycin Trough Rheumatoid Factor Complement C4 Miscellaneous Test Crossmatch 09/22/16 09/22/16 09/23/16 17:29 23:10 05:00 WBC 19.2 H RBC 3.13 L Hgb 8.0 L Hct 25.2 L MCV MCH 26 L MCHC RDW 22.1 H Plt Count Lymph % (Auto) [place] % (Auto) Lymph # [place] # Baso # Seg Neutrophils % Seg Neuts % (Manual) 92.0 H Lymphocytes % (Manual) 3.0 L Monocytes % (Manual) Eosinophils % (Manual) Basophils % (Manual) Nucleated RBC % Seg Neutrophils # Seg Neutrophils # Man 17.7 H Lymphocytes # (Manual) 0.6 L Monocytes # (Manual) Eosinophils # (Manual) PT INR Fibrinogen dRVVT Confirm Interp Factor V Activity POC ABG pH POC ABG pCO2 POC ABG pO2 ABG pO2 ABG HCO3 ABG Base Excess ABG Hemoglobin Oxyhemoglobin Sodium Potassium Chloride Carbon Dioxide BUN Creatinine Glucose POC Glucose 197 H 169 H Lactic Acid Calcium Phosphorus Magnesium Direct Bilirubin AST ALT Alkaline Phosphatase Lactate Dehydrogenase Troponin T C-Reactive Protein Total Protein Albumin Prealbumin Triglycerides Cholesterol LDL Cholesterol Direct HDL Cholesterol Urine pH Urine WBC (Auto) Urine Creatinine Urine Total Protein Fluid Total Protein Vancomycin Trough Rheumatoid Factor Complement C4 Miscellaneous Test Crossmatch 09/23/16 09/23/16 09/23/16 05:00 05:00 05:10 WBC RBC Hgb Hct MCV MCH MCHC RDW Plt Count Lymph % (Auto) [place] % (Auto) Lymph # [place] # Baso # Seg Neutrophils % Seg Neuts % (Manual) Lymphocytes % (Manual) Monocytes % (Manual) Eosinophils % (Manual) Basophils % (Manual) Nucleated RBC % Seg Neutrophils # Seg Neutrophils # Man Lymphocytes # (Manual) Monocytes # (Manual) Eosinophils # (Manual) PT INR Fibrinogen dRVVT Confirm Interp Factor V Activity POC ABG pH POC ABG pCO2 POC ABG pO2 ABG pO2 ABG HCO3 ABG Base Excess ABG Hemoglobin Oxyhemoglobin Sodium 147 H Potassium 3.2 L Chloride 115.7 H Carbon Dioxide 13 L BUN 111 H Creatinine 3.8 H Glucose 194 H POC Glucose 188 H Lactic Acid Calcium 7.3 L D Phosphorus Magnesium Direct Bilirubin AST ALT Alkaline Phosphatase Lactate Dehydrogenase Troponin T C-Reactive Protein 3.20 H Total Protein Albumin Prealbumin Triglycerides Cholesterol LDL Cholesterol Direct HDL Cholesterol Urine pH Urine WBC (Auto) Urine Creatinine Urine Total Protein Fluid Total Protein Vancomycin Trough Rheumatoid Factor Complement C4 Miscellaneous Test Crossmatch 09/23/16 09/23/16 09/23/16 11:37 12:29 18:01 WBC RBC Hgb Hct MCV MCH MCHC RDW Plt Count Lymph % (Auto) [place] % (Auto) Lymph # [place] # Baso # Seg Neutrophils % Seg Neuts % (Manual) Lymphocytes % (Manual) Monocytes % (Manual) Eosinophils % (Manual) Basophils % (Manual) Nucleated RBC % Seg Neutrophils # Seg Neutrophils # Man Lymphocytes # (Manual) Monocytes # (Manual) Eosinophils # (Manual) PT INR Fibrinogen dRVVT Confirm Interp Factor V Activity POC ABG pH POC ABG pCO2 18.9 L POC ABG pO2 143 H ABG pO2 ABG HCO3 ABG Base Excess ABG Hemoglobin Oxyhemoglobin Sodium Potassium Chloride Carbon Dioxide BUN Creatinine Glucose POC Glucose 153 H 108 H Lactic Acid Calcium Phosphorus Magnesium Direct Bilirubin AST ALT Alkaline Phosphatase Lactate Dehydrogenase Troponin T C-Reactive Protein Total Protein Albumin Prealbumin Triglycerides Cholesterol LDL Cholesterol Direct HDL Cholesterol Urine pH Urine WBC (Auto) Urine Creatinine Urine Total Protein Fluid Total Protein Vancomycin Trough Rheumatoid Factor Complement C4 Miscellaneous Test Crossmatch 09/23/16 09/23/16 09/24/16 21:19 23:43 05:16 WBC RBC Hgb Hct MCV MCH MCHC RDW Plt Count Lymph % (Auto) [place] % (Auto) Lymph # [place] # Baso # Seg Neutrophils % Seg Neuts % (Manual) Lymphocytes % (Manual) Monocytes % (Manual) Eosinophils % (Manual) Basophils % (Manual) Nucleated RBC % Seg Neutrophils # Seg Neutrophils # Man Lymphocytes # (Manual) Monocytes # (Manual) Eosinophils # (Manual) PT INR Fibrinogen dRVVT Confirm Interp Factor V Activity POC ABG pH POC ABG pCO2 17.3 L POC ABG pO2 112 H ABG pO2 ABG HCO3 ABG Base Excess ABG Hemoglobin Oxyhemoglobin Sodium Potassium Chloride Carbon Dioxide BUN Creatinine Glucose POC Glucose 143 H 164 H Lactic Acid Calcium Phosphorus Magnesium Direct Bilirubin AST ALT Alkaline Phosphatase Lactate Dehydrogenase Troponin T C-Reactive Protein Total Protein Albumin Prealbumin Triglycerides Cholesterol LDL Cholesterol Direct HDL Cholesterol Urine pH Urine WBC (Auto) Urine Creatinine Urine Total Protein Fluid Total Protein Vancomycin Trough Rheumatoid Factor Complement C4 Miscellaneous Test Crossmatch 09/24/16 09/24/16 09/24/16 05:21 11:58 17:06 WBC RBC Hgb Hct MCV MCH MCHC RDW Plt Count Lymph % (Auto) [place] % (Auto) Lymph # [place] # Baso # Seg Neutrophils % Seg Neuts % (Manual) Lymphocytes % (Manual) Monocytes % (Manual) Eosinophils % (Manual) Basophils % (Manual) Nucleated RBC % Seg Neutrophils # Seg Neutrophils # Man Lymphocytes # (Manual) Monocytes # (Manual) Eosinophils # (Manual) PT INR Fibrinogen dRVVT Confirm Interp Factor V Activity POC ABG pH POC ABG pCO2 POC ABG pO2 ABG pO2 ABG HCO3 ABG Base Excess ABG Hemoglobin Oxyhemoglobin Sodium Potassium Chloride Carbon Dioxide 10 L BUN 103 H Creatinine 4.3 H Glucose 163 H POC Glucose 173 H 167 H Lactic Acid Calcium 6.5 L Phosphorus Magnesium Direct Bilirubin AST ALT Alkaline Phosphatase Lactate Dehydrogenase Troponin T C-Reactive Protein Total Protein Albumin Prealbumin Triglycerides Cholesterol LDL Cholesterol Direct HDL Cholesterol Urine pH Urine WBC (Auto) Urine Creatinine Urine Total Protein Fluid Total Protein Vancomycin Trough Rheumatoid Factor Complement C4 Miscellaneous Test Crossmatch 09/24/16 09/24/16 09/24/16 20:15 21:02 23:48 WBC RBC Hgb Hct MCV MCH MCHC RDW Plt Count Lymph % (Auto) [place] % (Auto) Lymph # [place] # Baso # Seg Neutrophils % Seg Neuts % (Manual) Lymphocytes % (Manual) Monocytes % (Manual) Eosinophils % (Manual) Basophils % (Manual) Nucleated RBC % Seg Neutrophils # Seg Neutrophils # Man Lymphocytes # (Manual) Monocytes # (Manual) Eosinophils # (Manual) PT INR Fibrinogen dRVVT Confirm Interp Factor V Activity POC ABG pH 7.288 L POC ABG pCO2 30.2 L 21.5 L POC ABG pO2 32 L 39 L ABG pO2 ABG HCO3 ABG Base Excess ABG Hemoglobin Oxyhemoglobin Sodium Potassium Chloride Carbon Dioxide BUN Creatinine Glucose POC Glucose 109 H Lactic Acid Calcium Phosphorus Magnesium Direct Bilirubin AST ALT Alkaline Phosphatase Lactate Dehydrogenase Troponin T C-Reactive Protein Total Protein Albumin Prealbumin Triglycerides Cholesterol LDL Cholesterol Direct HDL Cholesterol Urine pH Urine WBC (Auto) Urine Creatinine Urine Total Protein Fluid Total Protein Vancomycin Trough Rheumatoid Factor Complement C4 Miscellaneous Test Crossmatch 09/25/16 09/25/16 09/25/16 04:20 04:20 04:20 WBC RBC 2.58 L Hgb 7.0 L Hct 21.0 L MCV MCH 27 L MCHC RDW 23.8 H Plt Count Lymph % (Auto) [place] % (Auto) Lymph # [place] # Baso # Seg Neutrophils % Seg Neuts % (Manual) Lymphocytes % (Manual) 12.0 L Monocytes % (Manual) Eosinophils % (Manual) 7.0 H Basophils % (Manual) 2.0 H Nucleated RBC % Seg Neutrophils # Seg Neutrophils # Man Lymphocytes # (Manual) 0.9 L Monocytes # (Manual) Eosinophils # (Manual) 0.5 H PT INR Fibrinogen dRVVT Confirm Interp Factor V Activity POC ABG pH POC ABG pCO2 POC ABG pO2 ABG pO2 ABG HCO3 ABG Base Excess ABG Hemoglobin Oxyhemoglobin Sodium Potassium Chloride Carbon Dioxide 15 L BUN 72 H Creatinine 3.8 H Glucose POC Glucose Lactic Acid Calcium 6.0 L Phosphorus 4.60 H Magnesium 1.60 L Direct Bilirubin AST ALT Alkaline Phosphatase Lactate Dehydrogenase Troponin T C-Reactive Protein Total Protein Albumin Prealbumin Triglycerides Cholesterol LDL Cholesterol Direct HDL Cholesterol Urine pH Urine WBC (Auto) Urine Creatinine Urine Total Protein Fluid Total Protein Vancomycin Trough Rheumatoid Factor Complement C4 Miscellaneous Test Crossmatch 09/25/16 09/25/16 09/25/16 04:57 08:02 10:30 WBC RBC Hgb Hct MCV MCH MCHC RDW Plt Count Lymph % (Auto) [place] % (Auto) Lymph # [place] # Baso # Seg Neutrophils % Seg Neuts % (Manual) Lymphocytes % (Manual) Monocytes % (Manual) Eosinophils % (Manual) Basophils % (Manual) Nucleated RBC % Seg Neutrophils # Seg Neutrophils # Man Lymphocytes # (Manual) Monocytes # (Manual) Eosinophils # (Manual) PT INR Fibrinogen dRVVT Confirm Interp Factor V Activity POC ABG pH POC ABG pCO2 24.7 L POC ABG pO2 152 H ABG pO2 ABG HCO3 ABG Base Excess ABG Hemoglobin Oxyhemoglobin Sodium Potassium Chloride Carbon Dioxide BUN Creatinine Glucose POC Glucose 113 H Lactic Acid Calcium Phosphorus Magnesium Direct Bilirubin AST ALT Alkaline Phosphatase Lactate Dehydrogenase Troponin T C-Reactive Protein Total Protein Albumin Prealbumin Triglycerides Cholesterol LDL Cholesterol Direct HDL Cholesterol Urine pH Urine WBC (Auto) Urine Creatinine Urine Total Protein Fluid Total Protein Vancomycin Trough Rheumatoid Factor Complement C4 Miscellaneous Test Crossmatch See Detail 09/25/16 09/25/16 09/25/16 12:05 17:44 23:47 WBC RBC Hgb Hct MCV MCH MCHC RDW Plt Count Lymph % (Auto) [place] % (Auto) Lymph # Ada # Baso # Seg Neutrophils % Seg Neuts % (Manual) Lymphocytes % (Manual) Monocytes % (Manual) Eosinophils % (Manual) Basophils % (Manual) Nucleated RBC % Seg Neutrophils # Seg Neutrophils # Man Lymphocytes # (Manual) Monocytes # (Manual) Eosinophils # (Manual) PT INR Fibrinogen dRVVT Confirm Interp Factor V Activity POC ABG pH POC ABG pCO2 POC ABG pO2 ABG pO2 ABG HCO3 ABG Base Excess ABG Hemoglobin Oxyhemoglobin Sodium Potassium Chloride Carbon Dioxide BUN Creatinine Glucose POC Glucose 117 H 119 H 150 H Lactic Acid Calcium Phosphorus Magnesium Direct Bilirubin AST ALT Alkaline Phosphatase Lactate Dehydrogenase Troponin T C-Reactive Protein Total Protein Albumin Prealbumin Triglycerides Cholesterol LDL Cholesterol Direct HDL Cholesterol Urine pH Urine WBC (Auto) Urine Creatinine Urine Total Protein Fluid Total Protein Vancomycin Trough Rheumatoid Factor Complement C4 Miscellaneous Test Crossmatch 09/26/16 09/26/16 09/26/16 04:25 04:25 04:25 WBC RBC 2.65 L Hgb 7.4 L Hct 21.6 L MCV MCH MCHC RDW 22.5 H Plt Count Lymph % (Auto) [place] % (Auto) Lymph # [place] # Baso # Seg Neutrophils % Seg Neuts % (Manual) Lymphocytes % (Manual) 6.0 L Monocytes % (Manual) Eosinophils % (Manual) 11.0 H Basophils % (Manual) Nucleated RBC % Seg Neutrophils # Seg Neutrophils # Man Lymphocytes # (Manual) 0.4 L Monocytes # (Manual) Eosinophils # (Manual) 0.6 H PT INR Fibrinogen dRVVT Confirm Interp Factor V Activity POC ABG pH POC ABG pCO2 POC ABG pO2 ABG pO2 ABG HCO3 ABG Base Excess ABG Hemoglobin Oxyhemoglobin Sodium Potassium Chloride 97.0 L Carbon Dioxide 19 L BUN 43 H Creatinine 2.6 H Glucose 130 H POC Glucose Lactic Acid 4.40 H* Calcium 6.7 L Phosphorus Magnesium Direct Bilirubin AST ALT Alkaline Phosphatase Lactate Dehydrogenase Troponin T C-Reactive Protein Total Protein Albumin Prealbumin Triglycerides Cholesterol LDL Cholesterol Direct HDL Cholesterol Urine pH Urine WBC (Auto) Urine Creatinine Urine Total Protein Fluid Total Protein Vancomycin Trough Rheumatoid Factor Complement C4 Miscellaneous Test Crossmatch 09/26/16 09/26/16 09/26/16 05:20 11:44 12:12 WBC RBC Hgb Hct MCV MCH MCHC RDW Plt Count Lymph % (Auto) [place] % (Auto) Lymph # [place] # Baso # Seg Neutrophils % Seg Neuts % (Manual) Lymphocytes % (Manual) Monocytes % (Manual) Eosinophils % (Manual) Basophils % (Manual) Nucleated RBC % Seg Neutrophils # Seg Neutrophils # Man Lymphocytes # (Manual) Monocytes # (Manual) Eosinophils # (Manual) PT INR Fibrinogen dRVVT Confirm Interp Factor V Activity POC ABG pH POC ABG pCO2 27.0 L POC ABG pO2 69 L ABG pO2 ABG HCO3 ABG Base Excess ABG Hemoglobin Oxyhemoglobin Sodium Potassium Chloride Carbon Dioxide BUN Creatinine Glucose POC Glucose 121 H 128 H Lactic Acid Calcium Phosphorus Magnesium Direct Bilirubin AST ALT Alkaline Phosphatase Lactate Dehydrogenase Troponin T C-Reactive Protein Total Protein Albumin Prealbumin Triglycerides Cholesterol LDL Cholesterol Direct HDL Cholesterol Urine pH Urine WBC (Auto) Urine Creatinine Urine Total Protein Fluid Total Protein Vancomycin Trough Rheumatoid Factor Complement C4 Miscellaneous Test Crossmatch 09/26/16 09/26/16 09/27/16 18:31 23:40 08:20 WBC RBC Hgb Hct MCV MCH MCHC RDW Plt Count Lymph % (Auto) [place] % (Auto) Lymph # [place] # [place] # Seg Neutrophils % Seg Neuts % (Manual) Lymphocytes % (Manual) Monocytes % (Manual) Eosinophils % (Manual) Basophils % (Manual) Nucleated RBC % Seg Neutrophils # Seg Neutrophils # Man Lymphocytes # (Manual) Monocytes # (Manual) Eosinophils # (Manual) PT INR Fibrinogen dRVVT Confirm Interp Factor V Activity POC ABG pH POC ABG pCO2 POC ABG pO2 ABG pO2 ABG HCO3 ABG Base Excess ABG Hemoglobin Oxyhemoglobin Sodium Potassium Chloride Carbon Dioxide BUN Creatinine Glucose POC Glucose 120 H 133 H Lactic Acid 4.10 H* Calcium Phosphorus Magnesium Direct Bilirubin AST ALT Alkaline Phosphatase Lactate Dehydrogenase Troponin T C-Reactive Protein Total Protein Albumin Prealbumin Triglycerides Cholesterol LDL Cholesterol Direct HDL Cholesterol Urine pH Urine WBC (Auto) Urine Creatinine Urine Total Protein Fluid Total Protein Vancomycin Trough Rheumatoid Factor Complement C4 Miscellaneous Test Crossmatch 09/27/16 09/27/16 09/27/16 11:23 15:00 18:15 WBC RBC Hgb Hct MCV MCH MCHC RDW Plt Count Lymph % (Auto) [place] % (Auto) Lymph # [place] # Baso # Seg Neutrophils % Seg Neuts % (Manual) Lymphocytes % (Manual) Monocytes % (Manual) Eosinophils % (Manual) Basophils % (Manual) Nucleated RBC % Seg Neutrophils # Seg Neutrophils # Man Lymphocytes # (Manual) Monocytes # (Manual) Eosinophils # (Manual) PT INR Fibrinogen dRVVT Confirm Interp Factor V Activity POC ABG pH 7.459 H POC ABG pCO2 27.1 L POC ABG pO2 140 H ABG pO2 ABG HCO3 ABG Base Excess ABG Hemoglobin Oxyhemoglobin Sodium Potassium Chloride Carbon Dioxide BUN Creatinine Glucose POC Glucose 114 H 127 H Lactic Acid Calcium Phosphorus Magnesium Direct Bilirubin AST ALT Alkaline Phosphatase Lactate Dehydrogenase Troponin T C-Reactive Protein Total Protein Albumin Prealbumin Triglycerides Cholesterol LDL Cholesterol Direct HDL Cholesterol Urine pH Urine WBC (Auto) Urine Creatinine Urine Total Protein Fluid Total Protein Vancomycin Trough Rheumatoid Factor Complement C4 Miscellaneous Test Crossmatch 09/27/16 09/27/16 09/28/16 Unknown Unknown 03:45 WBC RBC 2.49 L Hgb 6.8 L Hct 20.7 L MCV MCH 27 L MCHC RDW 22.1 H Plt Count Lymph % (Auto) [place] % (Auto) Lymph # [place] # Baso # Seg Neutrophils % Seg Neuts % (Manual) 32.0 L Lymphocytes % (Manual) 12.0 L Monocytes % (Manual) 11.0 H Eosinophils % (Manual) 10.0 H Basophils % (Manual) Nucleated RBC % Seg Neutrophils # Seg Neutrophils # Man Lymphocytes # (Manual) 1.0 L Monocytes # (Manual) 0.9 H Eosinophils # (Manual) 0.8 H PT INR Fibrinogen dRVVT Confirm Interp Factor V Activity POC ABG pH POC ABG pCO2 POC ABG pO2 ABG pO2 ABG HCO3 ABG Base Excess ABG Hemoglobin Oxyhemoglobin Sodium 135 L 135 L Potassium 3.5 L Chloride 93.6 L 94.4 L Carbon Dioxide 17 L 21 L BUN 45 H 28 H Creatinine 3.3 H 2.5 H Glucose 106 H POC Glucose Lactic Acid Calcium 7.3 L 7.1 L Phosphorus Magnesium Direct Bilirubin AST ALT Alkaline Phosphatase Lactate Dehydrogenase Troponin T C-Reactive Protein Total Protein Albumin Prealbumin Triglycerides Cholesterol LDL Cholesterol Direct HDL Cholesterol Urine pH Urine WBC (Auto) Urine Creatinine Urine Total Protein Fluid Total Protein Vancomycin Trough Rheumatoid Factor Complement C4 Miscellaneous Test Crossmatch 0809/[id number] 09/28/16 03:45 07:25 11:58 WBC 13.3 H RBC 3.01 L Hgb 8.4 L Hct 25.0 L MCV MCH MCHC RDW 20.5 H Plt Count 128 L Lymph % (Auto) [place] % (Auto) Lymph # [place] # Baso # Seg Neutrophils % Seg Neuts % (Manual) Lymphocytes % (Manual) 7.0 L Monocytes % (Manual) Eosinophils % (Manual) 6.0 H Basophils % (Manual) Nucleated RBC % Seg Neutrophils # Seg Neutrophils # Man Lymphocytes # (Manual) 0.9 L Monocytes # (Manual) Eosinophils # (Manual) 0.8 H PT INR Fibrinogen dRVVT Confirm Interp Factor V Activity POC ABG pH POC ABG pCO2 POC ABG pO2 ABG pO2 ABG HCO3 ABG Base Excess ABG Hemoglobin Oxyhemoglobin Sodium Potassium Chloride Carbon Dioxide BUN Creatinine Glucose POC Glucose 121 H Lactic Acid 4.50 H* Calcium Phosphorus Magnesium Direct Bilirubin AST ALT Alkaline Phosphatase Lactate Dehydrogenase Troponin T C-Reactive Protein Total Protein Albumin Prealbumin Triglycerides Cholesterol LDL Cholesterol Direct HDL Cholesterol Urine pH Urine WBC (Auto) Urine Creatinine Urine Total Protein Fluid Total Protein Vancomycin Trough Rheumatoid Factor Complement C4 Miscellaneous Test Crossmatch 09/29/16 09/29/16 09/29/16 06:45 06:45 06:45 WBC 14.9 H RBC 2.74 L Hgb 7.6 L Hct 23.2 L MCV MCH MCHC RDW 20.5 H Plt Count 81 L Lymph % (Auto) [place] % (Auto) Lymph # [place] # Baso # Seg Neutrophils % Seg Neuts % (Manual) 81.0 H Lymphocytes % (Manual) 4.0 L Monocytes % (Manual) Eosinophils % (Manual) Basophils % (Manual) Nucleated RBC % Seg Neutrophils # Seg Neutrophils # Man 12.1 H Lymphocytes # (Manual) 0.6 L Monocytes # (Manual) Eosinophils # (Manual) PT INR Fibrinogen dRVVT Confirm Interp Factor V Activity POC ABG pH POC ABG pCO2 POC ABG pO2 ABG pO2 ABG HCO3 ABG Base Excess ABG Hemoglobin Oxyhemoglobin Sodium 133 L Potassium 3.4 L Chloride 92.5 L Carbon Dioxide 21 L BUN 33 H Creatinine 3.0 H Glucose POC Glucose Lactic Acid Calcium 6.6 L Phosphorus Magnesium 1.40 L Direct Bilirubin 0.9 H AST ALT Alkaline Phosphatase Lactate Dehydrogenase Troponin T C-Reactive Protein Total Protein 4.3 L Albumin 1.3 L Prealbumin Triglycerides Cholesterol LDL Cholesterol Direct HDL Cholesterol Urine pH Urine WBC (Auto) Urine Creatinine Urine Total Protein Fluid Total Protein Vancomycin Trough Rheumatoid Factor Complement C4 Miscellaneous Test Crossmatch 09/29/16 09/29/16 09/30/16 17:52 20:12 00:07 WBC RBC Hgb Hct MCV MCH MCHC RDW Plt Count Lymph % (Auto) [place] % (Auto) Lymph # [place] # Baso # Seg Neutrophils % Seg Neuts % (Manual) Lymphocytes % (Manual) Monocytes % (Manual) Eosinophils % (Manual) Basophils % (Manual) Nucleated RBC % Seg Neutrophils # Seg Neutrophils # Man Lymphocytes # (Manual) Monocytes # (Manual) Eosinophils # (Manual) PT INR Fibrinogen dRVVT Confirm Interp Factor V Activity POC ABG pH POC ABG pCO2 POC ABG pO2 ABG pO2 ABG HCO3 ABG Base Excess ABG Hemoglobin Oxyhemoglobin Sodium Potassium Chloride Carbon Dioxide BUN Creatinine Glucose POC Glucose 50 L 51 L Lactic Acid Calcium Phosphorus Magnesium Direct Bilirubin AST ALT Alkaline Phosphatase Lactate Dehydrogenase Troponin T 0.204 H* C-Reactive Protein Total Protein Albumin Prealbumin Triglycerides Cholesterol 31 L LDL Cholesterol Direct 4 L HDL Cholesterol 3 L Urine pH Urine WBC (Auto) Urine Creatinine Urine Total Protein Fluid Total Protein Vancomycin Trough Rheumatoid Factor Complement C4 Miscellaneous Test Crossmatch 09/30/16 09/30/16 09/30/16 01:30 05:15 06:10 WBC RBC Hgb Hct MCV MCH MCHC RDW Plt Count Lymph % (Auto) [place] % (Auto) Lymph # [place] # Baso # Seg Neutrophils % Seg Neuts % (Manual) Lymphocytes % (Manual) Monocytes % (Manual) Eosinophils % (Manual) Basophils % (Manual) Nucleated RBC % Seg Neutrophils # Seg Neutrophils # Man Lymphocytes # (Manual) Monocytes # (Manual) Eosinophils # (Manual) PT INR Fibrinogen dRVVT Confirm Interp Factor V Activity POC ABG pH POC ABG pCO2 POC ABG pO2 ABG pO2 ABG HCO3 ABG Base Excess ABG Hemoglobin Oxyhemoglobin Sodium 133 L Potassium 3.2 L Chloride 93.2 L Carbon Dioxide 19 L BUN 36 H Creatinine 3.2 H Glucose 104 H POC Glucose 167 H 146 H Lactic Acid Calcium 6.4 L Phosphorus Magnesium 1.60 L Direct Bilirubin AST ALT Alkaline Phosphatase Lactate Dehydrogenase Troponin T C-Reactive Protein Total Protein Albumin Prealbumin Triglycerides Cholesterol LDL Cholesterol Direct HDL Cholesterol Urine pH Urine WBC (Auto) Urine Creatinine Urine Total Protein Fluid Total Protein Vancomycin Trough Rheumatoid Factor Complement C4 Miscellaneous Test Crossmatch 09/30/16 09/30/16 09/30/16 11:26 13:39 18:38 WBC RBC Hgb Hct MCV MCH MCHC RDW Plt Count Lymph % (Auto) [place] % (Auto) Lymph # [place] # Baso # Seg Neutrophils % Seg Neuts % (Manual) Lymphocytes % (Manual) Monocytes % (Manual) Eosinophils % (Manual) Basophils % (Manual) Nucleated RBC % Seg Neutrophils # Seg Neutrophils # Man Lymphocytes # (Manual) Monocytes # (Manual) Eosinophils # (Manual) PT INR Fibrinogen dRVVT Confirm Interp Factor V Activity POC ABG pH 7.479 H POC ABG pCO2 29.8 L POC ABG pO2 117 H ABG pO2 ABG HCO3 ABG Base Excess ABG Hemoglobin Oxyhemoglobin Sodium Potassium Chloride Carbon Dioxide BUN Creatinine Glucose POC Glucose 140 H 122 H Lactic Acid Calcium Phosphorus Magnesium Direct Bilirubin AST ALT Alkaline Phosphatase Lactate Dehydrogenase Troponin T C-Reactive Protein Total Protein Albumin Prealbumin Triglycerides Cholesterol LDL Cholesterol Direct HDL Cholesterol Urine pH Urine WBC (Auto) Urine Creatinine Urine Total Protein Fluid Total Protein Vancomycin Trough Rheumatoid Factor Complement C4 Miscellaneous Test Crossmatch 10/01/16 10/01/16 10/01/16 06:00 06:00 12:37 WBC 12.6 H RBC 2.75 L Hgb 7.3 L Hct 23.3 L MCV MCH 27 L MCHC RDW 20.6 H Plt Count 72 L Lymph % (Auto) [place] % (Auto) Lymph # [place] # Baso # Seg Neutrophils % Seg Neuts % (Manual) 31.0 L Lymphocytes % (Manual) 8.0 L Monocytes % (Manual) Eosinophils % (Manual) Basophils % (Manual) Nucleated RBC % 3.0 H Seg Neutrophils # Seg Neutrophils # Man Lymphocytes # (Manual) 1.0 L Monocytes # (Manual) Eosinophils # (Manual) PT INR Fibrinogen dRVVT Confirm Interp Factor V Activity POC ABG pH POC ABG pCO2 POC ABG pO2 ABG pO2 ABG HCO3 ABG Base Excess ABG Hemoglobin Oxyhemoglobin Sodium 127 L Potassium Chloride 86.8 L Carbon Dioxide 20 L BUN 42 H Creatinine 3.5 H Glucose POC Glucose 65 L Lactic Acid Calcium 7.0 L Phosphorus Magnesium Direct Bilirubin AST ALT Alkaline Phosphatase Lactate Dehydrogenase Troponin T C-Reactive Protein Total Protein Albumin Prealbumin Triglycerides Cholesterol LDL Cholesterol Direct HDL Cholesterol Urine pH Urine WBC (Auto) Urine Creatinine Urine Total Protein Fluid Total Protein Vancomycin Trough Rheumatoid Factor Complement C4 Miscellaneous Test Crossmatch 10/01/16 10/01/16 10/02/16 17:39 23:32 00:59 WBC RBC Hgb Hct MCV MCH MCHC RDW Plt Count Lymph % (Auto) [place] % (Auto) Lymph # [place] # Baso # Seg Neutrophils % Seg Neuts % (Manual) Lymphocytes % (Manual) Monocytes % (Manual) Eosinophils % (Manual) Basophils % (Manual) Nucleated RBC % Seg Neutrophils # Seg Neutrophils # Man Lymphocytes # (Manual) Monocytes # (Manual) Eosinophils # (Manual) PT INR Fibrinogen dRVVT Confirm Interp Factor V Activity POC ABG pH POC ABG pCO2 POC ABG pO2 ABG pO2 ABG HCO3 ABG Base Excess ABG Hemoglobin Oxyhemoglobin Sodium Potassium Chloride Carbon Dioxide BUN Creatinine Glucose POC Glucose 107 H 52 L 145 H Lactic Acid Calcium Phosphorus Magnesium Direct Bilirubin AST ALT Alkaline Phosphatase Lactate Dehydrogenase Troponin T C-Reactive Protein Total Protein Albumin Prealbumin Triglycerides Cholesterol LDL Cholesterol Direct HDL Cholesterol Urine pH Urine WBC (Auto) Urine Creatinine Urine Total Protein Fluid Total Protein Vancomycin Trough Rheumatoid Factor Complement C4 Miscellaneous Test Crossmatch 10/02/16 10/02/16 10/02/16 10:30 10:50 10:50 WBC 14.7 H RBC 2.76 L Hgb 7.4 L Hct 23.6 L MCV MCH 27 L MCHC RDW 20.2 H Plt Count 79 L Lymph % (Auto) [place] % (Auto) Lymph # [place] # Baso # Seg Neutrophils % Seg Neuts % (Manual) 86.0 H Lymphocytes % (Manual) 6.0 L Monocytes % (Manual) Eosinophils % (Manual) Basophils % (Manual) Nucleated RBC % Seg Neutrophils # Seg Neutrophils # Man 12.6 H Lymphocytes # (Manual) 0.9 L Monocytes # (Manual) Eosinophils # (Manual) PT INR Fibrinogen dRVVT Confirm Interp Factor V Activity POC ABG pH 7.486 H POC ABG pCO2 30.1 L POC ABG pO2 108 H ABG pO2 ABG HCO3 ABG Base Excess ABG Hemoglobin Oxyhemoglobin Sodium 131 L Potassium 3.4 L Chloride 89.9 L Carbon Dioxide BUN 26 H Creatinine 2.6 H Glucose POC Glucose Lactic Acid Calcium 7.0 L Phosphorus Magnesium Direct Bilirubin AST ALT Alkaline Phosphatase Lactate Dehydrogenase Troponin T C-Reactive Protein Total Protein Albumin Prealbumin Triglycerides Cholesterol LDL Cholesterol Direct HDL Cholesterol Urine pH Urine WBC (Auto) Urine Creatinine Urine Total Protein Fluid Total Protein Vancomycin Trough Rheumatoid Factor Complement C4 Miscellaneous Test Crossmatch 10/02/16 10/03/16 10/03/16 23:45 00:45 05:10 WBC 12.9 H RBC 2.77 L Hgb 7.6 L Hct 23.7 L MCV MCH 27 L MCHC RDW 19.7 H Plt Count 89 L Lymph % (Auto) [place] % (Auto) Lymph # [place] # Baso # Seg Neutrophils % Seg Neuts % (Manual) Lymphocytes % (Manual) 8.0 L Monocytes % (Manual) Eosinophils % (Manual) Basophils % (Manual) Nucleated RBC % Seg Neutrophils # 11.9 H Seg Neutrophils # Man Lymphocytes # (Manual) 1.0 L Monocytes # (Manual) Eosinophils # (Manual) PT INR Fibrinogen dRVVT Confirm Interp Factor V Activity POC ABG pH POC ABG pCO2 POC ABG pO2 ABG pO2 ABG HCO3 ABG Base Excess ABG Hemoglobin Oxyhemoglobin Sodium Potassium Chloride Carbon Dioxide BUN Creatinine Glucose POC Glucose 55 L 199 H Lactic Acid Calcium Phosphorus Magnesium Direct Bilirubin AST ALT Alkaline Phosphatase Lactate Dehydrogenase Troponin T C-Reactive Protein Total Protein Albumin Prealbumin Triglycerides Cholesterol LDL Cholesterol Direct HDL Cholesterol Urine pH Urine WBC (Auto) Urine Creatinine Urine Total Protein Fluid Total Protein Vancomycin Trough Rheumatoid Factor Complement C4 Miscellaneous Test Crossmatch 10/03/16 10/03/16 10/03/16 05:10 12:14 13:18 WBC RBC Hgb Hct MCV MCH MCHC RDW Plt Count Lymph % (Auto) [place] % (Auto) Lymph # [place] # Baso # Seg Neutrophils % Seg Neuts % (Manual) Lymphocytes % (Manual) Monocytes % (Manual) Eosinophils % (Manual) Basophils % (Manual) Nucleated RBC % Seg Neutrophils # Seg Neutrophils # Man Lymphocytes # (Manual) Monocytes # (Manual) Eosinophils # (Manual) PT INR Fibrinogen dRVVT Confirm Interp Factor V Activity POC ABG pH POC ABG pCO2 POC ABG pO2 ABG pO2 ABG HCO3 ABG Base Excess ABG Hemoglobin Oxyhemoglobin Sodium 129 L Potassium 3.3 L Chloride 88.8 L Carbon Dioxide 20 L BUN 29 H Creatinine 2.8 H Glucose POC Glucose 68 L 127 H Lactic Acid Calcium 7.2 L Phosphorus Magnesium Direct Bilirubin AST ALT Alkaline Phosphatase Lactate Dehydrogenase Troponin T C-Reactive Protein Total Protein Albumin Prealbumin Triglycerides Cholesterol LDL Cholesterol Direct HDL Cholesterol Urine pH Urine WBC (Auto) Urine Creatinine Urine Total Protein Fluid Total Protein Vancomycin Trough Rheumatoid Factor Complement C4 Miscellaneous Test Crossmatch 10/03/16 10/03/16 10/03/16 14:42 18:21 19:09 WBC RBC Hgb Hct MCV MCH MCHC RDW Plt Count Lymph % (Auto) [place] % (Auto) Lymph # [place] # Baso # Seg Neutrophils % Seg Neuts % (Manual) Lymphocytes % (Manual) Monocytes % (Manual) Eosinophils % (Manual) Basophils % (Manual) Nucleated RBC % Seg Neutrophils # Seg Neutrophils # Man Lymphocytes # (Manual) Monocytes # (Manual) Eosinophils # (Manual) PT INR Fibrinogen dRVVT Confirm Interp Factor V Activity POC ABG pH 7.499 H POC ABG pCO2 28.4 L POC ABG pO2 44 L ABG pO2 ABG HCO3 ABG Base Excess ABG Hemoglobin Oxyhemoglobin Sodium Potassium Chloride Carbon Dioxide BUN Creatinine Glucose POC Glucose 64 L 205 H Lactic Acid Calcium Phosphorus Magnesium Direct Bilirubin AST ALT Alkaline Phosphatase Lactate Dehydrogenase Troponin T C-Reactive Protein Total Protein Albumin Prealbumin Triglycerides Cholesterol LDL Cholesterol Direct HDL Cholesterol Urine pH Urine WBC (Auto) Urine Creatinine Urine Total Protein Fluid Total Protein Vancomycin Trough Rheumatoid Factor Complement C4 Miscellaneous Test Crossmatch 10/03/16 10/04/16 10/04/16 23:33 04:18 06:30 WBC RBC 2.54 L Hgb 7.1 L Hct 21.7 L MCV MCH MCHC RDW 19.5 H Plt Count 76 L Lymph % (Auto) [place] % (Auto) Lymph # [place] # Baso # Seg Neutrophils % Seg Neuts % (Manual) 88.0 H Lymphocytes % (Manual) 6.0 L Monocytes % (Manual) Eosinophils % (Manual) Basophils % (Manual) Nucleated RBC % Seg Neutrophils # Seg Neutrophils # Man 8.8 H Lymphocytes # (Manual) 0.6 L Monocytes # (Manual) Eosinophils # (Manual) PT INR Fibrinogen dRVVT Confirm Interp Factor V Activity POC ABG pH 7.461 H POC ABG pCO2 33.6 L POC ABG pO2 211 H ABG pO2 ABG HCO3 ABG Base Excess ABG Hemoglobin Oxyhemoglobin Sodium Potassium Chloride Carbon Dioxide BUN Creatinine Glucose POC Glucose 136 H Lactic Acid Calcium Phosphorus Magnesium Direct Bilirubin AST ALT Alkaline Phosphatase Lactate Dehydrogenase Troponin T C-Reactive Protein Total Protein Albumin Prealbumin Triglycerides Cholesterol LDL Cholesterol Direct HDL Cholesterol Urine pH Urine WBC (Auto) Urine Creatinine Urine Total Protein Fluid Total Protein Vancomycin Trough Rheumatoid Factor Complement C4 Miscellaneous Test Crossmatch 10/04/16 10/04/16 10/04/16 06:30 11:45 17:54 WBC RBC Hgb Hct MCV MCH MCHC RDW Plt Count Lymph % (Auto) [place] % (Auto) Lymph # [place] # Baso # Seg Neutrophils % Seg Neuts % (Manual) Lymphocytes % (Manual) Monocytes % (Manual) Eosinophils % (Manual) Basophils % (Manual) Nucleated RBC % Seg Neutrophils # Seg Neutrophils # Man Lymphocytes # (Manual) Monocytes # (Manual) Eosinophils # (Manual) PT INR Fibrinogen dRVVT Confirm Interp Factor V Activity POC ABG pH POC ABG pCO2 POC ABG pO2 ABG pO2 ABG HCO3 ABG Base Excess ABG Hemoglobin Oxyhemoglobin Sodium 128 L Potassium Chloride 87.4 L Carbon Dioxide 20 L BUN 34 H Creatinine 2.9 H Glucose 127 H POC Glucose 158 H 160 H Lactic Acid Calcium 7.4 L Phosphorus Magnesium Direct Bilirubin AST ALT Alkaline Phosphatase Lactate Dehydrogenase Troponin T C-Reactive Protein Total Protein Albumin Prealbumin Triglycerides Cholesterol LDL Cholesterol Direct HDL Cholesterol Urine pH Urine WBC (Auto) Urine Creatinine Urine Total Protein Fluid Total Protein Vancomycin Trough Rheumatoid Factor Complement C4 Miscellaneous Test Crossmatch 10/04/16 10/05/16 10/05/16 23:25 04:30 05:00 WBC RBC 2.64 L Hgb 7.5 L Hct 22.6 L MCV MCH MCHC RDW 19.3 H Plt Count 80 L Lymph % (Auto) [place] % (Auto) Lymph # [place] # Baso # Seg Neutrophils % Seg Neuts % (Manual) Lymphocytes % (Manual) 12.0 L Monocytes % (Manual) Eosinophils % (Manual) Basophils % (Manual) Nucleated RBC % Seg Neutrophils # Seg Neutrophils # Man Lymphocytes # (Manual) Monocytes # (Manual) Eosinophils # (Manual) PT INR Fibrinogen dRVVT Confirm Interp Factor V Activity POC ABG pH 7.475 H POC ABG pCO2 33.3 L POC ABG pO2 140 H ABG pO2 ABG HCO3 ABG Base Excess ABG Hemoglobin Oxyhemoglobin Sodium Potassium Chloride Carbon Dioxide BUN Creatinine Glucose POC Glucose 141 H Lactic Acid Calcium Phosphorus Magnesium Direct Bilirubin AST ALT Alkaline Phosphatase Lactate Dehydrogenase Troponin T C-Reactive Protein Total Protein Albumin Prealbumin Triglycerides Cholesterol LDL Cholesterol Direct HDL Cholesterol Urine pH Urine WBC (Auto) Urine Creatinine Urine Total Protein Fluid Total Protein Vancomycin Trough Rheumatoid Factor Complement C4 Miscellaneous Test Crossmatch 10/05/16 10/05/16 10/05/16 05:00 05:09 12:58 WBC RBC Hgb Hct MCV MCH MCHC RDW Plt Count Lymph % (Auto) [place] % (Auto) Lymph # [place] # Baso # Seg Neutrophils % Seg Neuts % (Manual) Lymphocytes % (Manual) Monocytes % (Manual) Eosinophils % (Manual) Basophils % (Manual) Nucleated RBC % Seg Neutrophils # Seg Neutrophils # Man Lymphocytes # (Manual) Monocytes # (Manual) Eosinophils # (Manual) PT INR Fibrinogen dRVVT Confirm Interp Factor V Activity POC ABG pH POC ABG pCO2 POC ABG pO2 ABG pO2 ABG HCO3 ABG Base Excess ABG Hemoglobin Oxyhemoglobin Sodium 131 L Potassium Chloride 94.0 L Carbon Dioxide 20 L BUN 22 H Creatinine 2.0 H Glucose 123 H POC Glucose 166 H 179 H Lactic Acid Calcium 7.7 L Phosphorus 2.20 L D Magnesium Direct Bilirubin AST ALT Alkaline Phosphatase Lactate Dehydrogenase Troponin T C-Reactive Protein Total Protein Albumin Prealbumin Triglycerides Cholesterol LDL Cholesterol Direct HDL Cholesterol Urine pH Urine WBC (Auto) Urine Creatinine Urine Total Protein Fluid Total Protein Vancomycin Trough Rheumatoid Factor Complement C4 Miscellaneous Test Crossmatch 10/05/16 10/05/16 10/05/16 15:50 18:53 23:12 WBC RBC Hgb Hct MCV MCH MCHC RDW Plt Count Lymph % (Auto) [place] % (Auto) Lymph # [place] # Baso # Seg Neutrophils % Seg Neuts % (Manual) Lymphocytes % (Manual) Monocytes % (Manual) Eosinophils % (Manual) Basophils % (Manual) Nucleated RBC % Seg Neutrophils # Seg Neutrophils # Man Lymphocytes # (Manual) Monocytes # (Manual) Eosinophils # (Manual) PT INR Fibrinogen dRVVT Confirm Interp Factor V Activity POC ABG pH POC ABG pCO2 POC ABG pO2 ABG pO2 ABG HCO3 ABG Base Excess ABG Hemoglobin Oxyhemoglobin Sodium Potassium Chloride Carbon Dioxide BUN Creatinine Glucose POC Glucose 150 H 164 H Lactic Acid Calcium Phosphorus Magnesium Direct Bilirubin AST ALT Alkaline Phosphatase Lactate Dehydrogenase Troponin T C-Reactive Protein Total Protein Albumin Prealbumin Triglycerides Cholesterol LDL Cholesterol Direct HDL Cholesterol Urine pH Urine WBC (Auto) Urine Creatinine Urine Total Protein Fluid Total Protein Vancomycin Trough Rheumatoid Factor Complement C4 Miscellaneous Test Crossmatch See Detail 10/06/16 10/06/16 10/06/16 03:50 03:50 04:53 WBC RBC 3.00 L Hgb 8.6 L Hct 25.8 L MCV MCH MCHC RDW 17.9 H Plt Count 65 L Lymph % (Auto) [place] % (Auto) Lymph # [place] # Baso # Seg Neutrophils % Seg Neuts % (Manual) 30.0 L Lymphocytes % (Manual) 5.0 L Monocytes % (Manual) Eosinophils % (Manual) Basophils % (Manual) Nucleated RBC % Seg Neutrophils # Seg Neutrophils # Man Lymphocytes # (Manual) 0.4 L Monocytes # (Manual) Eosinophils # (Manual) PT INR Fibrinogen dRVVT Confirm Interp Factor V Activity POC ABG pH 7.310 L POC ABG pCO2 49.0 H POC ABG pO2 ABG pO2 ABG HCO3 ABG Base Excess ABG Hemoglobin Oxyhemoglobin Sodium 133 L Potassium Chloride 95.9 L Carbon Dioxide BUN 26 H Creatinine 2.0 H Glucose 116 H POC Glucose Lactic Acid Calcium 7.8 L Phosphorus Magnesium Direct Bilirubin AST ALT Alkaline Phosphatase Lactate Dehydrogenase Troponin T C-Reactive Protein Total Protein Albumin Prealbumin Triglycerides Cholesterol LDL Cholesterol Direct HDL Cholesterol Urine pH Urine WBC (Auto) Urine Creatinine Urine Total Protein Fluid Total Protein Vancomycin Trough Rheumatoid Factor Complement C4 Miscellaneous Test Crossmatch 10/06/16 10/06/16 10/06/16 05:23 11:52 18:34 WBC RBC Hgb Hct MCV MCH MCHC RDW Plt Count Lymph % (Auto) [place] % (Auto) Lymph # [place] # Baso # Seg Neutrophils % Seg Neuts % (Manual) Lymphocytes % (Manual) Monocytes % (Manual) Eosinophils % (Manual) Basophils % (Manual) Nucleated RBC % Seg Neutrophils # Seg Neutrophils # Man Lymphocytes # (Manual) Monocytes # (Manual) Eosinophils # (Manual) PT INR Fibrinogen dRVVT Confirm Interp Factor V Activity POC ABG pH POC ABG pCO2 POC ABG pO2 ABG pO2 ABG HCO3 ABG Base Excess ABG Hemoglobin Oxyhemoglobin Sodium Potassium Chloride Carbon Dioxide BUN Creatinine Glucose POC Glucose 126 H 116 H 129 H Lactic Acid Calcium Phosphorus Magnesium Direct Bilirubin AST ALT Alkaline Phosphatase Lactate Dehydrogenase Troponin T C-Reactive Protein Total Protein Albumin Prealbumin Triglycerides Cholesterol LDL Cholesterol Direct HDL Cholesterol Urine pH Urine WBC (Auto) Urine Creatinine Urine Total Protein Fluid Total Protein Vancomycin Trough Rheumatoid Factor Complement C4 Miscellaneous Test Crossmatch 10/07/16 10/07/16 10/07/16 03:45 05:00 10:00 WBC 17.0 H RBC 2.68 L Hgb 7.3 L Hct 25.3 L MCV MCH 27 L MCHC 29 L RDW 19.6 H Plt Count 74 L Lymph % (Auto) [place] % (Auto) Lymph # [place] # Baso # Seg Neutrophils % Seg Neuts % (Manual) Lymphocytes % (Manual) 12.0 L Monocytes % (Manual) Eosinophils % (Manual) Basophils % (Manual) Nucleated RBC % 4.0 H Seg Neutrophils # Seg Neutrophils # Man 10.7 H Lymphocytes # (Manual) Monocytes # (Manual) Eosinophils # (Manual) PT INR Fibrinogen dRVVT Confirm Interp Factor V Activity POC ABG pH POC ABG pCO2 POC ABG pO2 ABG pO2 ABG HCO3 ABG Base Excess ABG Hemoglobin Oxyhemoglobin Sodium 130 L Potassium 3.2 L Chloride 93.9 L Carbon Dioxide 20 L BUN 44 H Creatinine 2.7 H Glucose 129 H POC Glucose Lactic Acid Calcium 7.4 L Phosphorus Magnesium Direct Bilirubin AST ALT 6 L Alkaline Phosphatase 195 H Lactate Dehydrogenase Troponin T C-Reactive Protein Total Protein 4.9 L Albumin 1.0 L Prealbumin Triglycerides Cholesterol LDL Cholesterol Direct HDL Cholesterol Urine pH Urine WBC (Auto) Urine Creatinine Urine Total Protein Fluid Total Protein Vancomycin Trough Rheumatoid Factor Complement C4 Miscellaneous Test Flexitest 1 H Crossmatch 10/07/16 10/07/16 10/07/16 10:00 11:24 18:10 WBC RBC Hgb Hct MCV MCH MCHC RDW Plt Count Lymph % (Auto) [place] % (Auto) Lymph # [place] # Baso # Seg Neutrophils % Seg Neuts % (Manual) Lymphocytes % (Manual) Monocytes % (Manual) Eosinophils % (Manual) Basophils % (Manual) Nucleated RBC % Seg Neutrophils # Seg Neutrophils # Man Lymphocytes # (Manual) Monocytes # (Manual) Eosinophils # (Manual) PT INR Fibrinogen dRVVT Confirm Interp Factor V Activity POC ABG pH POC ABG pCO2 POC ABG pO2 ABG pO2 ABG HCO3 ABG Base Excess ABG Hemoglobin Oxyhemoglobin Sodium Potassium Chloride Carbon Dioxide BUN Creatinine Glucose POC Glucose 116 H 130 H Lactic Acid Calcium Phosphorus Magnesium Direct Bilirubin AST ALT Alkaline Phosphatase Lactate Dehydrogenase Troponin T C-Reactive Protein 19.40 H Total Protein Albumin Prealbumin Triglycerides Cholesterol LDL Cholesterol Direct HDL Cholesterol Urine pH Urine WBC (Auto) Urine Creatinine Urine Total Protein Fluid Total Protein Vancomycin Trough Rheumatoid Factor Complement C4 Miscellaneous Test Crossmatch 10/07/16 10/08/16 10/08/16 18:30 00:00 04:00 WBC RBC Hgb Hct MCV MCH MCHC RDW Plt Count Lymph % (Auto) [place] % (Auto) Lymph # [place] # Baso # Seg Neutrophils % Seg Neuts % (Manual) Lymphocytes % (Manual) Monocytes % (Manual) Eosinophils % (Manual) Basophils % (Manual) Nucleated RBC % Seg Neutrophils # Seg Neutrophils # Man Lymphocytes # (Manual) Monocytes # (Manual) Eosinophils # (Manual) PT INR Fibrinogen dRVVT Confirm Interp Factor V Activity POC ABG pH POC ABG pCO2 POC ABG pO2 ABG pO2 ABG HCO3 ABG Base Excess ABG Hemoglobin Oxyhemoglobin Sodium 132 L Potassium 3.3 L Chloride 93.6 L Carbon Dioxide 17 L BUN 59 H Creatinine 2.7 H Glucose 121 H POC Glucose 122 H Lactic Acid Calcium 7.6 L Phosphorus Magnesium Direct Bilirubin AST ALT Alkaline Phosphatase Lactate Dehydrogenase Troponin T C-Reactive Protein Total Protein Albumin Prealbumin Triglycerides Cholesterol LDL Cholesterol Direct HDL Cholesterol Urine pH Urine WBC (Auto) > 182.0 H Urine Creatinine Urine Total Protein Fluid Total Protein Vancomycin Trough Rheumatoid Factor Complement C4 Miscellaneous Test Crossmatch 10/08/16 10/08/16 10/08/16 04:30 05:30 11:51 WBC RBC 5.15 H Hgb 14.4 H D Hct 44.5 H D MCV MCH MCHC RDW 19.5 H Plt Count 56 L Lymph % (Auto) [place] % (Auto) Lymph # [place] # Baso # Seg Neutrophils % Seg Neuts % (Manual) 24.0 L Lymphocytes % (Manual) 8.0 L Monocytes % (Manual) Eosinophils % (Manual) Basophils % (Manual) Nucleated RBC % 9.0 H Seg Neutrophils # Seg Neutrophils # Man Lymphocytes # (Manual) 0.7 L Monocytes # (Manual) Eosinophils # (Manual) PT INR Fibrinogen dRVVT Confirm Interp Factor V Activity POC ABG pH POC ABG pCO2 POC ABG pO2 ABG pO2 ABG HCO3 ABG Base Excess ABG Hemoglobin Oxyhemoglobin Sodium Potassium Chloride Carbon Dioxide BUN Creatinine Glucose POC Glucose 125 H 150 H Lactic Acid Calcium Phosphorus Magnesium Direct Bilirubin AST ALT Alkaline Phosphatase Lactate Dehydrogenase Troponin T C-Reactive Protein Total Protein Albumin Prealbumin Triglycerides Cholesterol LDL Cholesterol Direct HDL Cholesterol Urine pH Urine WBC (Auto) Urine Creatinine Urine Total Protein Fluid Total Protein Vancomycin Trough Rheumatoid Factor Complement C4 Miscellaneous Test Crossmatch 10/08/16 10/08/16 10/08/16 12:49 17:07 19:30 WBC RBC Hgb 7.1 L D Hct 22.4 L D MCV MCH MCHC RDW Plt Count Lymph % (Auto) [place] % (Auto) Lymph # [place] # Baso # Seg Neutrophils % Seg Neuts % (Manual) Lymphocytes % (Manual) Monocytes % (Manual) Eosinophils % (Manual) Basophils % (Manual) Nucleated RBC % Seg Neutrophils # Seg Neutrophils # Man Lymphocytes # (Manual) Monocytes # (Manual) Eosinophils # (Manual) PT INR Fibrinogen dRVVT Confirm Interp Factor V Activity POC ABG pH POC ABG pCO2 28.2 L POC ABG pO2 111 H ABG pO2 ABG HCO3 ABG Base Excess ABG Hemoglobin Oxyhemoglobin Sodium Potassium Chloride Carbon Dioxide BUN Creatinine Glucose POC Glucose 145 H Lactic Acid Calcium Phosphorus Magnesium Direct Bilirubin AST ALT Alkaline Phosphatase Lactate Dehydrogenase Troponin T C-Reactive Protein Total Protein Albumin Prealbumin Triglycerides Cholesterol LDL Cholesterol Direct HDL Cholesterol Urine pH Urine WBC (Auto) Urine Creatinine Urine Total Protein Fluid Total Protein Vancomycin Trough Rheumatoid Factor Complement C4 Miscellaneous Test Crossmatch 10/08/16 10/09/16 10/09/16 19:30 03:45 03:45 WBC 12.6 H RBC 2.36 L Hgb 6.7 L Hct 21.1 L MCV MCH MCHC RDW 19.5 H Plt Count 75 L Lymph % (Auto) [place] % (Auto) Lymph # [place] # Baso # Seg Neutrophils % Seg Neuts % (Manual) Lymphocytes % (Manual) Monocytes % (Manual) 10.0 H Eosinophils % (Manual) Basophils % (Manual) Nucleated RBC % 3.0 H Seg Neutrophils # Seg Neutrophils # Man Lymphocytes # (Manual) Monocytes # (Manual) 1.3 H Eosinophils # (Manual) PT 18.0 H INR 1.41 H Fibrinogen dRVVT Confirm Interp Factor V Activity POC ABG pH POC ABG pCO2 POC ABG pO2 ABG pO2 ABG HCO3 ABG Base Excess ABG Hemoglobin Oxyhemoglobin Sodium 135 L Potassium Chloride Carbon Dioxide 17 L BUN 81 H Creatinine 3.2 H Glucose 109 H POC Glucose Lactic Acid Calcium 7.4 L Phosphorus 4.60 H D Magnesium Direct Bilirubin AST ALT Alkaline Phosphatase Lactate Dehydrogenase Troponin T C-Reactive Protein Total Protein Albumin Prealbumin Triglycerides Cholesterol LDL Cholesterol Direct HDL Cholesterol Urine pH Urine WBC (Auto) Urine Creatinine Urine Total Protein Fluid Total Protein Vancomycin Trough Rheumatoid Factor Complement C4 Miscellaneous Test Crossmatch 10/09/16 10/09/16 10/09/16 03:45 05:14 07:20 WBC RBC Hgb Hct MCV MCH MCHC RDW Plt Count Lymph % (Auto) [place] % (Auto) Lymph # [place] # Baso # Seg Neutrophils % Seg Neuts % (Manual) Lymphocytes % (Manual) Monocytes % (Manual) Eosinophils % (Manual) Basophils % (Manual) Nucleated RBC % Seg Neutrophils # Seg Neutrophils # Man Lymphocytes # (Manual) Monocytes # (Manual) Eosinophils # (Manual) PT 19.0 H INR 1.51 H Fibrinogen dRVVT Confirm Interp Factor V Activity POC ABG pH POC ABG pCO2 POC ABG pO2 ABG pO2 ABG HCO3 ABG Base Excess ABG Hemoglobin Oxyhemoglobin Sodium Potassium Chloride Carbon Dioxide BUN Creatinine Glucose POC Glucose 151 H Lactic Acid Calcium Phosphorus Magnesium Direct Bilirubin AST ALT Alkaline Phosphatase Lactate Dehydrogenase Troponin T C-Reactive Protein Total Protein Albumin Prealbumin Triglycerides Cholesterol LDL Cholesterol Direct HDL Cholesterol Urine pH Urine WBC (Auto) Urine Creatinine Urine Total Protein Fluid Total Protein Vancomycin Trough Rheumatoid Factor Complement C4 Miscellaneous Test Crossmatch See Detail 10/09/16 10/09/16 10/09/16 11:46 16:20 16:43 WBC RBC Hgb 7.2 L Hct 22.2 L MCV MCH MCHC RDW Plt Count Lymph % (Auto) [place] % (Auto) Lymph # [place] # Baso # Seg Neutrophils % Seg Neuts % (Manual) Lymphocytes % (Manual) Monocytes % (Manual) Eosinophils % (Manual) Basophils % (Manual) Nucleated RBC % Seg Neutrophils # Seg Neutrophils # Man Lymphocytes # (Manual) Monocytes # (Manual) Eosinophils # (Manual) PT INR Fibrinogen dRVVT Confirm Interp Factor V Activity POC ABG pH POC ABG pCO2 POC ABG pO2 ABG pO2 ABG HCO3 ABG Base Excess ABG Hemoglobin Oxyhemoglobin Sodium Potassium Chloride Carbon Dioxide BUN Creatinine Glucose POC Glucose 133 H 141 H Lactic Acid Calcium Phosphorus Magnesium Direct Bilirubin AST ALT Alkaline Phosphatase Lactate Dehydrogenase Troponin T C-Reactive Protein Total Protein Albumin Prealbumin Triglycerides Cholesterol LDL Cholesterol Direct HDL Cholesterol Urine pH Urine WBC (Auto) Urine Creatinine Urine Total Protein Fluid Total Protein Vancomycin Trough Rheumatoid Factor Complement C4 Miscellaneous Test Crossmatch 10/10/16 10/10/16 10/10/16 05:00 05:00 11:19 WBC 18.5 H RBC 2.19 L Hgb 6.4 L Hct 19.6 L* MCV MCH MCHC RDW 19.3 H Plt Count 93 L Lymph % (Auto) [place] % (Auto) Lymph # [place] # Baso # Seg Neutrophils % Seg Neuts % (Manual) Lymphocytes % (Manual) 10.0 L Monocytes % (Manual) Eosinophils % (Manual) Basophils % (Manual) Nucleated RBC % 4.0 H Seg Neutrophils # Seg Neutrophils # Man 11.3 H Lymphocytes # (Manual) Monocytes # (Manual) Eosinophils # (Manual) PT INR Fibrinogen dRVVT Confirm Interp Factor V Activity POC ABG pH POC ABG pCO2 POC ABG pO2 ABG pO2 ABG HCO3 ABG Base Excess ABG Hemoglobin Oxyhemoglobin Sodium Potassium 5.7 H D Chloride Carbon Dioxide 16 L BUN 94 H Creatinine 3.1 H Glucose 131 H POC Glucose 153 H Lactic Acid Calcium 8.2 L Phosphorus 5.10 H Magnesium 2.40 H Direct Bilirubin 0.3 H AST ALT < 5 L Alkaline Phosphatase 319 H Lactate Dehydrogenase Troponin T C-Reactive Protein Total Protein 5.1 L Albumin 1.0 L Prealbumin Triglycerides Cholesterol LDL Cholesterol Direct HDL Cholesterol Urine pH Urine WBC (Auto) Urine Creatinine Urine Total Protein Fluid Total Protein Vancomycin Trough Rheumatoid Factor Complement C4 Miscellaneous Test Crossmatch 10/10/16 10/10/16 10/11/16 17:50 23:30 04:15 WBC RBC Hgb Hct MCV MCH MCHC RDW Plt Count Lymph % (Auto) [place] % (Auto) Lymph # [place] # Baso # Seg Neutrophils % Seg Neuts % (Manual) Lymphocytes % (Manual) Monocytes % (Manual) Eosinophils % (Manual) Basophils % (Manual) Nucleated RBC % Seg Neutrophils # Seg Neutrophils # Man Lymphocytes # (Manual) Monocytes # (Manual) Eosinophils # (Manual) PT INR Fibrinogen dRVVT Confirm Interp Factor V Activity POC ABG pH POC ABG pCO2 POC ABG pO2 ABG pO2 ABG HCO3 ABG Base Excess ABG Hemoglobin Oxyhemoglobin Sodium Potassium Chloride 96.4 L Carbon Dioxide 21 L BUN 57 H Creatinine 2.1 H Glucose 151 H POC Glucose 146 H 141 H Lactic Acid Calcium 8.3 L Phosphorus Magnesium Direct Bilirubin AST ALT Alkaline Phosphatase Lactate Dehydrogenase Troponin T C-Reactive Protein Total Protein Albumin Prealbumin Triglycerides Cholesterol LDL Cholesterol Direct HDL Cholesterol Urine pH Urine WBC (Auto) Urine Creatinine Urine Total Protein Fluid Total Protein Vancomycin Trough Rheumatoid Factor Complement C4 Miscellaneous Test Crossmatch 10/11/16 10/11/16 10/11/16 04:15 04:15 05:30 WBC 28.3 H RBC 3.12 L Hgb 9.3 L Hct 28.7 L D MCV MCH MCHC RDW 17.7 H Plt Count 128 L Lymph % (Auto) [place] % (Auto) Lymph # [place] # Baso # Seg Neutrophils % Seg Neuts % (Manual) Lymphocytes % (Manual) Monocytes % (Manual) Eosinophils % (Manual) Basophils % (Manual) Nucleated RBC % Seg Neutrophils # Seg Neutrophils # Man Lymphocytes # (Manual) Monocytes # (Manual) Eosinophils # (Manual) PT INR Fibrinogen dRVVT Confirm Interp Factor V Activity POC ABG pH POC ABG pCO2 POC ABG pO2 ABG pO2 ABG HCO3 ABG Base Excess ABG Hemoglobin Oxyhemoglobin Sodium Potassium Chloride Carbon Dioxide BUN Creatinine Glucose POC Glucose 167 H Lactic Acid Calcium Phosphorus Magnesium Direct Bilirubin AST ALT Alkaline Phosphatase Lactate Dehydrogenase Troponin T C-Reactive Protein 15.80 H Total Protein Albumin Prealbumin Triglycerides Cholesterol LDL Cholesterol Direct HDL Cholesterol Urine pH Urine WBC (Auto) Urine Creatinine Urine Total Protein Fluid Total Protein Vancomycin Trough Rheumatoid Factor Complement C4 Miscellaneous Test Crossmatch 10/11/16 10/11/16 10/11/16 11:40 15:49 23:57 WBC RBC Hgb Hct MCV MCH MCHC RDW Plt Count Lymph % (Auto) [place] % (Auto) Lymph # [place] # Baso # Seg Neutrophils % Seg Neuts % (Manual) Lymphocytes % (Manual) Monocytes % (Manual) Eosinophils % (Manual) Basophils % (Manual) Nucleated RBC % Seg Neutrophils # Seg Neutrophils # Man Lymphocytes # (Manual) Monocytes # (Manual) Eosinophils # (Manual) PT INR Fibrinogen dRVVT Confirm Interp Factor V Activity POC ABG pH POC ABG pCO2 POC ABG pO2 ABG pO2 ABG HCO3 ABG Base Excess ABG Hemoglobin Oxyhemoglobin Sodium Potassium Chloride Carbon Dioxide BUN Creatinine Glucose POC Glucose 139 H 168 H 161 H Lactic Acid Calcium Phosphorus Magnesium Direct Bilirubin AST ALT Alkaline Phosphatase Lactate Dehydrogenase Troponin T C-Reactive Protein Total Protein Albumin Prealbumin Triglycerides Cholesterol LDL Cholesterol Direct HDL Cholesterol Urine pH Urine WBC (Auto) Urine Creatinine Urine Total Protein Fluid Total Protein Vancomycin Trough Rheumatoid Factor Complement C4 Miscellaneous Test Crossmatch 10/12/16 10/12/16 10/12/16 04:40 04:40 05:44 WBC 22.5 H RBC 2.88 L Hgb 8.8 L Hct 26.8 L MCV MCH MCHC RDW 17.8 H Plt Count Lymph % (Auto) [place] % (Auto) Lymph # [place] # Baso # Seg Neutrophils % Seg Neuts % (Manual) Lymphocytes % (Manual) Monocytes % (Manual) Eosinophils % (Manual) Basophils % (Manual) Nucleated RBC % Seg Neutrophils # Seg Neutrophils # Man Lymphocytes # (Manual) Monocytes # (Manual) Eosinophils # (Manual) PT INR Fibrinogen dRVVT Confirm Interp Factor V Activity POC ABG pH POC ABG pCO2 POC ABG pO2 ABG pO2 ABG HCO3 ABG Base Excess ABG Hemoglobin Oxyhemoglobin Sodium 134 L Potassium Chloride 93.0 L Carbon Dioxide BUN 74 H Creatinine 2.5 H Glucose 137 H POC Glucose 158 H Lactic Acid Calcium 8.2 L Phosphorus Magnesium Direct Bilirubin AST ALT Alkaline Phosphatase Lactate Dehydrogenase Troponin T C-Reactive Protein Total Protein Albumin Prealbumin Triglycerides Cholesterol LDL Cholesterol Direct HDL Cholesterol Urine pH Urine WBC (Auto) Urine Creatinine Urine Total Protein Fluid Total Protein Vancomycin Trough Rheumatoid Factor Complement C4 Miscellaneous Test Crossmatch 10/12/16 10/12/16 10/12/16 12:27 18:18 23:46 WBC RBC Hgb Hct MCV MCH MCHC RDW Plt Count Lymph % (Auto) [place] % (Auto) Lymph # [place] # Baso # Seg Neutrophils % Seg Neuts % (Manual) Lymphocytes % (Manual) Monocytes % (Manual) Eosinophils % (Manual) Basophils % (Manual) Nucleated RBC % Seg Neutrophils # Seg Neutrophils # Man Lymphocytes # (Manual) Monocytes # (Manual) Eosinophils # (Manual) PT INR Fibrinogen dRVVT Confirm Interp Factor V Activity POC ABG pH POC ABG pCO2 POC ABG pO2 ABG pO2 ABG HCO3 ABG Base Excess ABG Hemoglobin Oxyhemoglobin Sodium Potassium Chloride Carbon Dioxide BUN Creatinine Glucose POC Glucose 153 H 140 H 150 H Lactic Acid Calcium Phosphorus Magnesium Direct Bilirubin AST ALT Alkaline Phosphatase Lactate Dehydrogenase Troponin T C-Reactive Protein Total Protein Albumin Prealbumin Triglycerides Cholesterol LDL Cholesterol Direct HDL Cholesterol Urine pH Urine WBC (Auto) Urine Creatinine Urine Total Protein Fluid Total Protein Vancomycin Trough Rheumatoid Factor Complement C4 Miscellaneous Test Crossmatch 10/13/16 10/13/16 10/13/16 06:22 09:20 12:29 WBC RBC Hgb Hct MCV MCH MCHC RDW Plt Count Lymph % (Auto) [place] % (Auto) Lymph # [place] # Baso # Seg Neutrophils % Seg Neuts % (Manual) Lymphocytes % (Manual) Monocytes % (Manual) Eosinophils % (Manual) Basophils % (Manual) Nucleated RBC % Seg Neutrophils # Seg Neutrophils # Man Lymphocytes # (Manual) Monocytes # (Manual) Eosinophils # (Manual) PT INR Fibrinogen dRVVT Confirm Interp Factor V Activity POC ABG pH POC ABG pCO2 POC ABG pO2 ABG pO2 ABG HCO3 ABG Base Excess ABG Hemoglobin Oxyhemoglobin Sodium Potassium Chloride Carbon Dioxide BUN Creatinine Glucose POC Glucose 165 H 193 H Lactic Acid Calcium Phosphorus Magnesium Direct Bilirubin AST ALT Alkaline Phosphatase Lactate Dehydrogenase Troponin T C-Reactive Protein Total Protein Albumin Prealbumin Triglycerides Cholesterol LDL Cholesterol Direct HDL Cholesterol Urine pH Urine WBC (Auto) Urine Creatinine Urine Total Protein Fluid Total Protein Vancomycin Trough Rheumatoid Factor Complement C4 Miscellaneous Test Flexitest 1 H Crossmatch 10/13/16 10/13/16 10/13/16 18:09 Unknown Unknown WBC 23.4 H RBC 2.83 L Hgb 8.7 L Hct 26.1 L MCV MCH MCHC RDW 18.1 H Plt Count Lymph % (Auto) [place] % (Auto) Lymph # [place] # Baso # Seg Neutrophils % Seg Neuts % (Manual) Lymphocytes % (Manual) Monocytes % (Manual) Eosinophils % (Manual) Basophils % (Manual) Nucleated RBC % Seg Neutrophils # Seg Neutrophils # Man Lymphocytes # (Manual) Monocytes # (Manual) Eosinophils # (Manual) PT INR Fibrinogen dRVVT Confirm Interp Factor V Activity POC ABG pH POC ABG pCO2 POC ABG pO2 ABG pO2 ABG HCO3 ABG Base Excess ABG Hemoglobin Oxyhemoglobin Sodium Potassium Chloride 95.8 L Carbon Dioxide BUN 82 H Creatinine 2.6 H Glucose 152 H POC Glucose 166 H Lactic Acid Calcium Phosphorus Magnesium Direct Bilirubin AST ALT Alkaline Phosphatase Lactate Dehydrogenase Troponin T C-Reactive Protein Total Protein Albumin Prealbumin Triglycerides Cholesterol LDL Cholesterol Direct HDL Cholesterol Urine pH Urine WBC (Auto) Urine Creatinine Urine Total Protein Fluid Total Protein Vancomycin Trough Rheumatoid Factor Complement C4 Miscellaneous Test Crossmatch 08/10/14/16 10/14/16 05:38 06:35 08:10 WBC 20.7 H RBC 2.81 L Hgb 8.4 L Hct 27.2 L MCV MCH MCHC RDW 19.4 H Plt Count Lymph % (Auto) [place] % (Auto) Lymph # [place] # Baso # Seg Neutrophils % Seg Neuts % (Manual) Lymphocytes % (Manual) Monocytes % (Manual) Eosinophils % (Manual) Basophils % (Manual) Nucleated RBC % Seg Neutrophils # Seg Neutrophils # Man Lymphocytes # (Manual) Monocytes # (Manual) Eosinophils # (Manual) PT INR Fibrinogen dRVVT Confirm Interp Factor V Activity POC ABG pH POC ABG pCO2 POC ABG pO2 ABG pO2 ABG HCO3 ABG Base Excess ABG Hemoglobin Oxyhemoglobin Sodium Potassium Chloride Carbon Dioxide BUN 58 H Creatinine 1.9 H Glucose 169 H POC Glucose 195 H Lactic Acid Calcium Phosphorus Magnesium Direct Bilirubin AST ALT Alkaline Phosphatase Lactate Dehydrogenase Troponin T C-Reactive Protein Total Protein Albumin Prealbumin Triglycerides Cholesterol LDL Cholesterol Direct HDL Cholesterol Urine pH Urine WBC (Auto) Urine Creatinine Urine Total Protein Fluid Total Protein Vancomycin Trough Rheumatoid Factor Complement C4 Miscellaneous Test Crossmatch 10/14/16 10/14/16 10/14/16 11:44 17:13 23:28 WBC RBC Hgb Hct MCV MCH MCHC RDW Plt Count Lymph % (Auto) [place] % (Auto) Lymph # [place] # Baso # Seg Neutrophils % Seg Neuts % (Manual) Lymphocytes % (Manual) Monocytes % (Manual) Eosinophils % (Manual) Basophils % (Manual) Nucleated RBC % Seg Neutrophils # Seg Neutrophils # Man Lymphocytes # (Manual) Monocytes # (Manual) Eosinophils # (Manual) PT INR Fibrinogen dRVVT Confirm Interp Factor V Activity POC ABG pH POC ABG pCO2 POC ABG pO2 ABG pO2 ABG HCO3 ABG Base Excess ABG Hemoglobin Oxyhemoglobin Sodium Potassium Chloride Carbon Dioxide BUN Creatinine Glucose POC Glucose 174 H 121 H 151 H Lactic Acid Calcium Phosphorus Magnesium Direct Bilirubin AST ALT Alkaline Phosphatase Lactate Dehydrogenase Troponin T C-Reactive Protein Total Protein Albumin Prealbumin Triglycerides Cholesterol LDL Cholesterol Direct HDL Cholesterol Urine pH Urine WBC (Auto) Urine Creatinine Urine Total Protein Fluid Total Protein Vancomycin Trough Rheumatoid Factor Complement C4 Miscellaneous Test Crossmatch 10/15/16 10/15/16 10/15/16 05:06 12:26 17:48 WBC RBC Hgb Hct MCV MCH MCHC RDW Plt Count Lymph % (Auto) [place] % (Auto) Lymph # [place] # Baso # Seg Neutrophils % Seg Neuts % (Manual) Lymphocytes % (Manual) Monocytes % (Manual) Eosinophils % (Manual) Basophils % (Manual) Nucleated RBC % Seg Neutrophils # Seg Neutrophils # Man Lymphocytes # (Manual) Monocytes # (Manual) Eosinophils # (Manual) PT INR Fibrinogen dRVVT Confirm Interp Factor V Activity POC ABG pH POC ABG pCO2 POC ABG pO2 ABG pO2 ABG HCO3 ABG Base Excess ABG Hemoglobin Oxyhemoglobin Sodium Potassium Chloride Carbon Dioxide BUN Creatinine Glucose POC Glucose 151 H 149 H 153 H Lactic Acid Calcium Phosphorus Magnesium Direct Bilirubin AST ALT Alkaline Phosphatase Lactate Dehydrogenase Troponin T C-Reactive Protein Total Protein Albumin Prealbumin Triglycerides Cholesterol LDL Cholesterol Direct HDL Cholesterol Urine pH Urine WBC (Auto) Urine Creatinine Urine Total Protein Fluid Total Protein Vancomycin Trough Rheumatoid Factor Complement C4 Miscellaneous Test Crossmatch 10/15/16 10/15/16 10/16/16 Unknown Unknown 00:02 WBC 23.4 H RBC 2.78 L Hgb 8.5 L Hct 25.7 L MCV MCH MCHC RDW 18.7 H Plt Count Lymph % (Auto) [place] % (Auto) Lymph # [place] # Baso # Seg Neutrophils % Seg Neuts % (Manual) Lymphocytes % (Manual) Monocytes % (Manual) Eosinophils % (Manual) Basophils % (Manual) Nucleated RBC % Seg Neutrophils # Seg Neutrophils # Man Lymphocytes # (Manual) Monocytes # (Manual) Eosinophils # (Manual) PT INR Fibrinogen dRVVT Confirm Interp Factor V Activity POC ABG pH POC ABG pCO2 POC ABG pO2 ABG pO2 ABG HCO3 ABG Base Excess ABG Hemoglobin Oxyhemoglobin Sodium Potassium Chloride Carbon Dioxide BUN 73 H Creatinine 2.3 H Glucose 120 H POC Glucose 137 H Lactic Acid Calcium Phosphorus Magnesium Direct Bilirubin AST ALT Alkaline Phosphatase Lactate Dehydrogenase Troponin T C-Reactive Protein Total Protein Albumin Prealbumin Triglycerides Cholesterol LDL Cholesterol Direct HDL Cholesterol Urine pH Urine WBC (Auto) Urine Creatinine Urine Total Protein Fluid Total Protein Vancomycin Trough Rheumatoid Factor Complement C4 Miscellaneous Test Crossmatch 10/16/16 10/16/16 10/16/16 05:44 06:25 06:25 WBC 22.5 H RBC 2.76 L Hgb 8.3 L Hct 25.2 L MCV MCH MCHC RDW 18.3 H Plt Count Lymph % (Auto) [place] % (Auto) Lymph # [place] # Baso # Seg Neutrophils % Seg Neuts % (Manual) Lymphocytes % (Manual) Monocytes % (Manual) Eosinophils % (Manual) Basophils % (Manual) Nucleated RBC % Seg Neutrophils # Seg Neutrophils # Man Lymphocytes # (Manual) Monocytes # (Manual) Eosinophils # (Manual) PT INR Fibrinogen dRVVT Confirm Interp Factor V Activity POC ABG pH POC ABG pCO2 POC ABG pO2 ABG pO2 ABG HCO3 ABG Base Excess ABG Hemoglobin Oxyhemoglobin Sodium Potassium Chloride Carbon Dioxide BUN 92 H Creatinine 3.0 H Glucose 138 H POC Glucose 110 H Lactic Acid Calcium Phosphorus Magnesium Direct Bilirubin AST ALT Alkaline Phosphatase Lactate Dehydrogenase Troponin T C-Reactive Protein Total Protein Albumin Prealbumin Triglycerides Cholesterol LDL Cholesterol Direct HDL Cholesterol Urine pH Urine WBC (Auto) Urine Creatinine Urine Total Protein Fluid Total Protein Vancomycin Trough Rheumatoid Factor Complement C4 Miscellaneous Test Crossmatch 10/16/16 10/16/16 10/16/16 11:27 11:48 17:36 WBC RBC Hgb Hct MCV MCH MCHC RDW Plt Count Lymph % (Auto) [place] % (Auto) Lymph # Ada # Baso # Seg Neutrophils % Seg Neuts % (Manual) Lymphocytes % (Manual) Monocytes % (Manual) Eosinophils % (Manual) Basophils % (Manual) Nucleated RBC % Seg Neutrophils # Seg Neutrophils # Man Lymphocytes # (Manual) Monocytes # (Manual) Eosinophils # (Manual) PT INR Fibrinogen dRVVT Confirm Interp Factor V Activity POC ABG pH 7.582 H POC ABG pCO2 27.4 L POC ABG pO2 110 H ABG pO2 ABG HCO3 ABG Base Excess ABG Hemoglobin Oxyhemoglobin Sodium Potassium Chloride Carbon Dioxide BUN Creatinine Glucose POC Glucose 121 H 133 H Lactic Acid Calcium Phosphorus Magnesium Direct Bilirubin AST ALT Alkaline Phosphatase Lactate Dehydrogenase Troponin T C-Reactive Protein Total Protein Albumin Prealbumin Triglycerides Cholesterol LDL Cholesterol Direct HDL Cholesterol Urine pH Urine WBC (Auto) Urine Creatinine Urine Total Protein Fluid Total Protein Vancomycin Trough Rheumatoid Factor Complement C4 Miscellaneous Test Crossmatch 10/16/16 10/17/16 10/17/16 20:48 04:24 04:24 WBC 21.4 H RBC 2.72 L Hgb 8.0 L Hct 25.2 L MCV MCH MCHC RDW 18.0 H Plt Count Lymph % (Auto) [place] % (Auto) Lymph # [place] # Baso # Seg Neutrophils % Seg Neuts % (Manual) Lymphocytes % (Manual) Monocytes % (Manual) Eosinophils % (Manual) Basophils % (Manual) Nucleated RBC % Seg Neutrophils # Seg Neutrophils # Man Lymphocytes # (Manual) Monocytes # (Manual) Eosinophils # (Manual) PT INR Fibrinogen dRVVT Confirm Interp Factor V Activity POC ABG pH 7.561 H POC ABG pCO2 24.4 L POC ABG pO2 77 L ABG pO2 ABG HCO3 ABG Base Excess ABG Hemoglobin Oxyhemoglobin Sodium 148 H Potassium Chloride Carbon Dioxide BUN 104 H Creatinine 3.0 H Glucose 149 H POC Glucose Lactic Acid Calcium Phosphorus Magnesium Direct Bilirubin AST ALT Alkaline Phosphatase 138 H Lactate Dehydrogenase Troponin T C-Reactive Protein Total Protein 6.2 L Albumin 1.5 L Prealbumin Triglycerides Cholesterol LDL Cholesterol Direct HDL Cholesterol Urine pH Urine WBC (Auto) Urine Creatinine Urine Total Protein Fluid Total Protein Vancomycin Trough Rheumatoid Factor Complement C4 Miscellaneous Test Crossmatch 10/17/16 10/17/16 10/17/16 06:02 12:17 17:14 WBC RBC Hgb Hct MCV MCH MCHC RDW Plt Count Lymph % (Auto) [place] % (Auto) Lymph # [place] # Baso # Seg Neutrophils % Seg Neuts % (Manual) Lymphocytes % (Manual) Monocytes % (Manual) Eosinophils % (Manual) Basophils % (Manual) Nucleated RBC % Seg Neutrophils # Seg Neutrophils # Man Lymphocytes # (Manual) Monocytes # (Manual) Eosinophils # (Manual) PT INR Fibrinogen dRVVT Confirm Interp Factor V Activity POC ABG pH POC ABG pCO2 POC ABG pO2 ABG pO2 ABG HCO3 ABG Base Excess ABG Hemoglobin Oxyhemoglobin Sodium Potassium Chloride Carbon Dioxide BUN Creatinine Glucose POC Glucose 170 H 167 H 126 H Lactic Acid Calcium Phosphorus Magnesium Direct Bilirubin AST ALT Alkaline Phosphatase Lactate Dehydrogenase Troponin T C-Reactive Protein Total Protein Albumin Prealbumin Triglycerides Cholesterol LDL Cholesterol Direct HDL Cholesterol Urine pH Urine WBC (Auto) Urine Creatinine Urine Total Protein Fluid Total Protein Vancomycin Trough Rheumatoid Factor Complement C4 Miscellaneous Test Crossmatch 10/17/16 10/18/16 10/18/16 23:17 04:00 04:00 WBC 20.7 H RBC 2.47 L Hgb 7.4 L Hct 22.9 L MCV MCH MCHC RDW 17.5 H Plt Count Lymph % (Auto) [place] % (Auto) Lymph # [place] # Baso # Seg Neutrophils % Seg Neuts % (Manual) Lymphocytes % (Manual) Monocytes % (Manual) Eosinophils % (Manual) Basophils % (Manual) Nucleated RBC % Seg Neutrophils # Seg Neutrophils # Man Lymphocytes # (Manual) Monocytes # (Manual) Eosinophils # (Manual) PT INR Fibrinogen dRVVT Confirm Interp Factor V Activity POC ABG pH POC ABG pCO2 POC ABG pO2 ABG pO2 ABG HCO3 ABG Base Excess ABG Hemoglobin Oxyhemoglobin Sodium 149 H Potassium Chloride 107.9 H Carbon Dioxide 20 L BUN 117 H Creatinine 3.2 H Glucose 119 H POC Glucose 121 H Lactic Acid Calcium Phosphorus Magnesium Direct Bilirubin AST ALT Alkaline Phosphatase Lactate Dehydrogenase Troponin T C-Reactive Protein Total Protein Albumin Prealbumin Triglycerides Cholesterol LDL Cholesterol Direct HDL Cholesterol Urine pH Urine WBC (Auto) Urine Creatinine Urine Total Protein Fluid Total Protein Vancomycin Trough Rheumatoid Factor Complement C4 Miscellaneous Test Crossmatch 10/18/16 10/18/16 10/18/16 05:23 10:46 17:30 WBC RBC Hgb Hct MCV MCH MCHC RDW Plt Count Lymph % (Auto) [place] % (Auto) Lymph # [place] # Baso # Seg Neutrophils % Seg Neuts % (Manual) Lymphocytes % (Manual) Monocytes % (Manual) Eosinophils % (Manual) Basophils % (Manual) Nucleated RBC % Seg Neutrophils # Seg Neutrophils # Man Lymphocytes # (Manual) Monocytes # (Manual) Eosinophils # (Manual) PT INR Fibrinogen dRVVT Confirm Interp Factor V Activity POC ABG pH POC ABG pCO2 POC ABG pO2 ABG pO2 ABG HCO3 ABG Base Excess ABG Hemoglobin Oxyhemoglobin Sodium Potassium Chloride Carbon Dioxide BUN Creatinine Glucose POC Glucose 119 H 155 H 124 H Lactic Acid Calcium Phosphorus Magnesium Direct Bilirubin AST ALT Alkaline Phosphatase Lactate Dehydrogenase Troponin T C-Reactive Protein Total Protein Albumin Prealbumin Triglycerides Cholesterol LDL Cholesterol Direct HDL Cholesterol Urine pH Urine WBC (Auto) Urine Creatinine Urine Total Protein Fluid Total Protein Vancomycin Trough Rheumatoid Factor Complement C4 Miscellaneous Test Crossmatch 10/19/16 10/19/16 10/19/16 04:00 04:00 05:25 WBC 17.4 H RBC 2.54 L Hgb 7.7 L Hct 23.6 L MCV MCH MCHC RDW 17.3 H Plt Count Lymph % (Auto) [place] % (Auto) Lymph # [place] # Baso # Seg Neutrophils % Seg Neuts % (Manual) Lymphocytes % (Manual) Monocytes % (Manual) Eosinophils % (Manual) Basophils % (Manual) Nucleated RBC % Seg Neutrophils # Seg Neutrophils # Man Lymphocytes # (Manual) Monocytes # (Manual) Eosinophils # (Manual) PT INR Fibrinogen dRVVT Confirm Interp Factor V Activity POC ABG pH POC ABG pCO2 POC ABG pO2 ABG pO2 ABG HCO3 ABG Base Excess ABG Hemoglobin Oxyhemoglobin Sodium Potassium Chloride Carbon Dioxide BUN 72 H Creatinine 2.1 H Glucose 116 H POC Glucose 119 H Lactic Acid Calcium Phosphorus Magnesium Direct Bilirubin AST ALT Alkaline Phosphatase Lactate Dehydrogenase Troponin T C-Reactive Protein Total Protein Albumin Prealbumin Triglycerides Cholesterol LDL Cholesterol Direct HDL Cholesterol Urine pH Urine WBC (Auto) Urine Creatinine Urine Total Protein Fluid Total Protein Vancomycin Trough Rheumatoid Factor Complement C4 Miscellaneous Test Crossmatch 10/19/16 10/19/16 10/20/16 11:46 23:59 06:00 WBC RBC Hgb Hct MCV MCH MCHC RDW Plt Count Lymph % (Auto) [place] % (Auto) Lymph # [place] # Baso # Seg Neutrophils % Seg Neuts % (Manual) Lymphocytes % (Manual) Monocytes % (Manual) Eosinophils % (Manual) Basophils % (Manual) Nucleated RBC % Seg Neutrophils # Seg Neutrophils # Man Lymphocytes # (Manual) Monocytes # (Manual) Eosinophils # (Manual) PT INR Fibrinogen dRVVT Confirm Interp Factor V Activity POC ABG pH POC ABG pCO2 POC ABG pO2 ABG pO2 ABG HCO3 ABG Base Excess ABG Hemoglobin Oxyhemoglobin Sodium Potassium Chloride Carbon Dioxide 17 L BUN 94 H Creatinine 2.7 H Glucose POC Glucose 116 H 117 H Lactic Acid Calcium Phosphorus Magnesium Direct Bilirubin AST ALT Alkaline Phosphatase Lactate Dehydrogenase Troponin T C-Reactive Protein Total Protein Albumin Prealbumin Triglycerides Cholesterol LDL Cholesterol Direct HDL Cholesterol Urine pH Urine WBC (Auto) Urine Creatinine Urine Total Protein Fluid Total Protein Vancomycin Trough Rheumatoid Factor Complement C4 Miscellaneous Test Crossmatch 10/20/16 10/20/16 10/20/16 06:00 11:49 16:00 WBC 19.7 H RBC 2.51 L Hgb 7.7 L Hct 23.5 L MCV MCH MCHC RDW 17.5 H Plt Count Lymph % (Auto) [place] % (Auto) Lymph # [place] # Baso # Seg Neutrophils % Seg Neuts % (Manual) Lymphocytes % (Manual) Monocytes % (Manual) Eosinophils % (Manual) Basophils % (Manual) Nucleated RBC % Seg Neutrophils # Seg Neutrophils # Man Lymphocytes # (Manual) Monocytes # (Manual) Eosinophils # (Manual) PT INR Fibrinogen dRVVT Confirm Interp Factor V Activity POC ABG pH POC ABG pCO2 POC ABG pO2 ABG pO2 ABG HCO3 ABG Base Excess ABG Hemoglobin Oxyhemoglobin Sodium Potassium Chloride Carbon Dioxide BUN Creatinine Glucose POC Glucose 117 H Lactic Acid Calcium Phosphorus Magnesium Direct Bilirubin AST ALT Alkaline Phosphatase Lactate Dehydrogenase Troponin T C-Reactive Protein Total Protein Albumin Prealbumin Triglycerides Cholesterol LDL Cholesterol Direct HDL Cholesterol Urine pH Urine WBC (Auto) Urine Creatinine Urine Total Protein Fluid Total Protein Vancomycin Trough Rheumatoid Factor Complement C4 Miscellaneous Test Flexitest 1 H Crossmatch 10/20/16 10/20/16 10/21/16 18:36 23:39 04:00 WBC RBC Hgb Hct MCV MCH MCHC RDW Plt Count Lymph % (Auto) [place] % (Auto) Lymph # [place] # Baso # Seg Neutrophils % Seg Neuts % (Manual) Lymphocytes % (Manual) Monocytes % (Manual) Eosinophils % (Manual) Basophils % (Manual) Nucleated RBC % Seg Neutrophils # Seg Neutrophils # Man Lymphocytes # (Manual) Monocytes # (Manual) Eosinophils # (Manual) PT INR Fibrinogen dRVVT Confirm Interp Factor V Activity POC ABG pH POC ABG pCO2 POC ABG pO2 ABG pO2 ABG HCO3 ABG Base Excess ABG Hemoglobin Oxyhemoglobin Sodium Potassium 5.4 H D Chloride Carbon Dioxide 15 L BUN 110 H Creatinine 3.0 H Glucose POC Glucose 127 H 114 H Lactic Acid Calcium Phosphorus Magnesium Direct Bilirubin AST ALT Alkaline Phosphatase Lactate Dehydrogenase Troponin T C-Reactive Protein Total Protein Albumin Prealbumin Triglycerides Cholesterol LDL Cholesterol Direct HDL Cholesterol Urine pH Urine WBC (Auto) Urine Creatinine Urine Total Protein Fluid Total Protein Vancomycin Trough Rheumatoid Factor Complement C4 Miscellaneous Test Crossmatch 10/21/16 10/21/16 10/22/16 05:54 23:46 05:18 WBC RBC Hgb Hct MCV MCH MCHC RDW Plt Count Lymph % (Auto) [place] % (Auto) Lymph # [place] # Baso # Seg Neutrophils % Seg Neuts % (Manual) Lymphocytes % (Manual) Monocytes % (Manual) Eosinophils % (Manual) Basophils % (Manual) Nucleated RBC % Seg Neutrophils # Seg Neutrophils # Man Lymphocytes # (Manual) Monocytes # (Manual) Eosinophils # (Manual) PT INR Fibrinogen dRVVT Confirm Interp Factor V Activity POC ABG pH POC ABG pCO2 POC ABG pO2 ABG pO2 ABG HCO3 ABG Base Excess ABG Hemoglobin Oxyhemoglobin Sodium Potassium Chloride Carbon Dioxide BUN Creatinine Glucose POC Glucose 119 H 108 H 109 H Lactic Acid Calcium Phosphorus Magnesium Direct Bilirubin AST ALT Alkaline Phosphatase Lactate Dehydrogenase Troponin T C-Reactive Protein Total Protein Albumin Prealbumin Triglycerides Cholesterol LDL Cholesterol Direct HDL Cholesterol Urine pH Urine WBC (Auto) Urine Creatinine Urine Total Protein Fluid Total Protein Vancomycin Trough Rheumatoid Factor Complement C4 Miscellaneous Test Crossmatch 10/22/16 10/22/16 10/22/16 06:40 06:40 06:40 WBC 14.0 H RBC 2.03 L Hgb 7.0 L Hct 20.5 L MCV 98 H MCH 34 H MCHC 35 H RDW 17.8 H Plt Count Lymph % (Auto) [place] % (Auto) 9.9 H Lymph # Ada # 1.4 H Baso # 0.2 H Seg Neutrophils % 72.0 H Seg Neuts % (Manual) Lymphocytes % (Manual) Monocytes % (Manual) Eosinophils % (Manual) Basophils % (Manual) Nucleated RBC % Seg Neutrophils # 10.0 H Seg Neutrophils # Man Lymphocytes # (Manual) Monocytes # (Manual) Eosinophils # (Manual) PT INR Fibrinogen dRVVT Confirm Interp Factor V Activity POC ABG pH POC ABG pCO2 POC ABG pO2 ABG pO2 ABG HCO3 ABG Base Excess ABG Hemoglobin Oxyhemoglobin Sodium 130 L D Potassium Chloride 92.4 L Carbon Dioxide 20 L BUN 50 H Creatinine 1.6 H Glucose 589 H* POC Glucose Lactic Acid Calcium 7.8 L D Phosphorus Magnesium 1.60 L Direct Bilirubin AST ALT Alkaline Phosphatase Lactate Dehydrogenase Troponin T C-Reactive Protein Total Protein Albumin Prealbumin Triglycerides Cholesterol LDL Cholesterol Direct HDL Cholesterol Urine pH Urine WBC (Auto) Urine Creatinine Urine Total Protein Fluid Total Protein Vancomycin Trough Rheumatoid Factor Complement C4 Miscellaneous Test Crossmatch 10/22/16 10/22/16 10/22/16 11:39 16:44 23:36 WBC RBC Hgb Hct MCV MCH MCHC RDW Plt Count Lymph % (Auto) [place] % (Auto) Lymph # [place] # Baso # Seg Neutrophils % Seg Neuts % (Manual) Lymphocytes % (Manual) Monocytes % (Manual) Eosinophils % (Manual) Basophils % (Manual) Nucleated RBC % Seg Neutrophils # Seg Neutrophils # Man Lymphocytes # (Manual) Monocytes # (Manual) Eosinophils # (Manual) PT INR Fibrinogen dRVVT Confirm Interp Factor V Activity POC ABG pH POC ABG pCO2 POC ABG pO2 ABG pO2 ABG HCO3 ABG Base Excess ABG Hemoglobin Oxyhemoglobin Sodium Potassium Chloride Carbon Dioxide BUN Creatinine Glucose POC Glucose 142 H 163 H 123 H Lactic Acid Calcium Phosphorus Magnesium Direct Bilirubin AST ALT Alkaline Phosphatase Lactate Dehydrogenase Troponin T C-Reactive Protein Total Protein Albumin Prealbumin Triglycerides Cholesterol LDL Cholesterol Direct HDL Cholesterol Urine pH Urine WBC (Auto) Urine Creatinine Urine Total Protein Fluid Total Protein Vancomycin Trough Rheumatoid Factor Complement C4 Miscellaneous Test Crossmatch 10/23/16 10/23/16 10/23/16 04:58 06:00 12:12 WBC RBC Hgb Hct MCV MCH MCHC RDW Plt Count Lymph % (Auto) [place] % (Auto) Lymph # [place] # Baso # Seg Neutrophils % Seg Neuts % (Manual) Lymphocytes % (Manual) Monocytes % (Manual) Eosinophils % (Manual) Basophils % (Manual) Nucleated RBC % Seg Neutrophils # Seg Neutrophils # Man Lymphocytes # (Manual) Monocytes # (Manual) Eosinophils # (Manual) PT INR Fibrinogen dRVVT Confirm Interp Factor V Activity POC ABG pH POC ABG pCO2 POC ABG pO2 ABG pO2 ABG HCO3 ABG Base Excess ABG Hemoglobin Oxyhemoglobin Sodium 133 L Potassium 3.5 L Chloride 96.1 L Carbon Dioxide 18 L BUN 76 H Creatinine 2.1 H Glucose POC Glucose 133 H 138 H Lactic Acid Calcium 8.3 L Phosphorus Magnesium Direct Bilirubin AST ALT Alkaline Phosphatase Lactate Dehydrogenase Troponin T C-Reactive Protein Total Protein Albumin Prealbumin Triglycerides Cholesterol LDL Cholesterol Direct HDL Cholesterol Urine pH Urine WBC (Auto) Urine Creatinine Urine Total Protein Fluid Total Protein Vancomycin Trough Rheumatoid Factor Complement C4 Miscellaneous Test Crossmatch 10/23/16 10/23/16 10/24/16 16:53 23:37 04:00 WBC RBC Hgb Hct MCV MCH MCHC RDW Plt Count Lymph % (Auto) [place] % (Auto) Lymph # [place] # Baso # Seg Neutrophils % Seg Neuts % (Manual) Lymphocytes % (Manual) Monocytes % (Manual) Eosinophils % (Manual) Basophils % (Manual) Nucleated RBC % Seg Neutrophils # Seg Neutrophils # Man Lymphocytes # (Manual) Monocytes # (Manual) Eosinophils # (Manual) PT INR Fibrinogen dRVVT Confirm Interp Factor V Activity POC ABG pH POC ABG pCO2 POC ABG pO2 ABG pO2 ABG HCO3 ABG Base Excess ABG Hemoglobin Oxyhemoglobin Sodium 131 L Potassium Chloride 94.5 L Carbon Dioxide 19 L BUN 97 H Creatinine 2.6 H Glucose 110 H POC Glucose 125 H 123 H Lactic Acid Calcium 8.3 L Phosphorus Magnesium Direct Bilirubin AST ALT Alkaline Phosphatase Lactate Dehydrogenase Troponin T C-Reactive Protein Total Protein Albumin Prealbumin Triglycerides Cholesterol LDL Cholesterol Direct HDL Cholesterol Urine pH Urine WBC (Auto) Urine Creatinine Urine Total Protein Fluid Total Protein Vancomycin Trough Rheumatoid Factor Complement C4 Miscellaneous Test Crossmatch 10/24/16 10/24/16 10/24/16 07:49 11:39 17:52 WBC RBC Hgb 6.0 L Hct 19.7 L* MCV MCH MCHC RDW Plt Count Lymph % (Auto) [place] % (Auto) Lymph # [place] # Baso # Seg Neutrophils % Seg Neuts % (Manual) Lymphocytes % (Manual) Monocytes % (Manual) Eosinophils % (Manual) Basophils % (Manual) Nucleated RBC % Seg Neutrophils # Seg Neutrophils # Man Lymphocytes # (Manual) Monocytes # (Manual) Eosinophils # (Manual) PT INR Fibrinogen dRVVT Confirm Interp Factor V Activity POC ABG pH POC ABG pCO2 POC ABG pO2 ABG pO2 ABG HCO3 ABG Base Excess ABG Hemoglobin Oxyhemoglobin Sodium Potassium Chloride Carbon Dioxide BUN Creatinine Glucose POC Glucose 106 H 158 H Lactic Acid Calcium Phosphorus Magnesium Direct Bilirubin AST ALT Alkaline Phosphatase Lactate Dehydrogenase Troponin T C-Reactive Protein Total Protein Albumin Prealbumin Triglycerides Cholesterol LDL Cholesterol Direct HDL Cholesterol Urine pH Urine WBC (Auto) Urine Creatinine Urine Total Protein Fluid Total Protein Vancomycin Trough Rheumatoid Factor Complement C4 Miscellaneous Test Crossmatch 10/24/16 10/24/16 10/24/16 20:00 22:27 Unknown WBC RBC Hgb 9.4 L D Hct 27.5 L D MCV MCH MCHC RDW Plt Count Lymph % (Auto) [place] % (Auto) Lymph # [place] # Baso # Seg Neutrophils % Seg Neuts % (Manual) Lymphocytes % (Manual) Monocytes % (Manual) Eosinophils % (Manual) Basophils % (Manual) Nucleated RBC % Seg Neutrophils # Seg Neutrophils # Man Lymphocytes # (Manual) Monocytes # (Manual) Eosinophils # (Manual) PT INR Fibrinogen dRVVT Confirm Interp Factor V Activity POC ABG pH POC ABG pCO2 POC ABG pO2 ABG pO2 ABG HCO3 ABG Base Excess ABG Hemoglobin Oxyhemoglobin Sodium Potassium Chloride Carbon Dioxide BUN Creatinine Glucose POC Glucose 125 H Lactic Acid Calcium Phosphorus Magnesium Direct Bilirubin AST ALT Alkaline Phosphatase Lactate Dehydrogenase Troponin T C-Reactive Protein Total Protein Albumin Prealbumin Triglycerides Cholesterol LDL Cholesterol Direct HDL Cholesterol Urine pH Urine WBC (Auto) Urine Creatinine Urine Total Protein Fluid Total Protein Vancomycin Trough Rheumatoid Factor Complement C4 Miscellaneous Test Crossmatch See Detail 10/25/16 10/25/16 10/25/16 04:00 04:00 04:00 WBC 14.2 H RBC 2.98 L Hgb 9.0 L Hct 26.2 L MCV MCH MCHC RDW 16.6 H Plt Count Lymph % (Auto) [place] % (Auto) 10.7 H Lymph # [place] # 1.5 H Baso # Seg Neutrophils % 73.6 H Seg Neuts % (Manual) Lymphocytes % (Manual) Monocytes % (Manual) Eosinophils % (Manual) Basophils % (Manual) Nucleated RBC % Seg Neutrophils # 10.5 H Seg Neutrophils # Man Lymphocytes # (Manual) Monocytes # (Manual) Eosinophils # (Manual) PT INR Fibrinogen dRVVT Confirm Interp Factor V Activity POC ABG pH POC ABG pCO2 POC ABG pO2 ABG pO2 ABG HCO3 ABG Base Excess ABG Hemoglobin Oxyhemoglobin Sodium 132 L Potassium Chloride 94.7 L Carbon Dioxide BUN 51 H Creatinine 1.6 H Glucose 130 H POC Glucose Lactic Acid Calcium 8.3 L Phosphorus 1.60 L D Magnesium Direct Bilirubin AST ALT Alkaline Phosphatase Lactate Dehydrogenase Troponin T C-Reactive Protein Total Protein Albumin Prealbumin Triglycerides Cholesterol LDL Cholesterol Direct HDL Cholesterol Urine pH Urine WBC (Auto) Urine Creatinine Urine Total Protein Fluid Total Protein Vancomycin Trough Rheumatoid Factor Complement C4 Miscellaneous Test Crossmatch 10/25/16 10/25/16 10/25/16 04:32 11:48 17:22 WBC RBC Hgb Hct MCV MCH MCHC RDW Plt Count Lymph % (Auto) [place] % (Auto) Lymph # [place] # Baso # Seg Neutrophils % Seg Neuts % (Manual) Lymphocytes % (Manual) Monocytes % (Manual) Eosinophils % (Manual) Basophils % (Manual) Nucleated RBC % Seg Neutrophils # Seg Neutrophils # Man Lymphocytes # (Manual) Monocytes # (Manual) Eosinophils # (Manual) PT INR Fibrinogen dRVVT Confirm Interp Factor V Activity POC ABG pH POC ABG pCO2 POC ABG pO2 ABG pO2 ABG HCO3 ABG Base Excess ABG Hemoglobin Oxyhemoglobin Sodium Potassium Chloride Carbon Dioxide BUN Creatinine Glucose POC Glucose 124 H 171 H 120 H Lactic Acid Calcium Phosphorus Magnesium Direct Bilirubin AST ALT Alkaline Phosphatase Lactate Dehydrogenase Troponin T C-Reactive Protein Total Protein Albumin Prealbumin Triglycerides Cholesterol LDL Cholesterol Direct HDL Cholesterol Urine pH Urine WBC (Auto) Urine Creatinine Urine Total Protein Fluid Total Protein Vancomycin Trough Rheumatoid Factor Complement C4 Miscellaneous Test Crossmatch 10/26/16 10/26/16 10/26/16 04:54 07:06 07:06 WBC 16.9 H RBC 3.06 L Hgb 9.1 L Hct 26.9 L MCV MCH MCHC RDW 16.9 H Plt Count Lymph % (Auto) [place] % (Auto) Lymph # [place] # Baso # Seg Neutrophils % Seg Neuts % (Manual) 71.0 H Lymphocytes % (Manual) 5.0 L Monocytes % (Manual) 12.0 H Eosinophils % (Manual) Basophils % (Manual) Nucleated RBC % Seg Neutrophils # Seg Neutrophils # Man 12.0 H Lymphocytes # (Manual) 0.8 L Monocytes # (Manual) 2.0 H Eosinophils # (Manual) PT INR Fibrinogen dRVVT Confirm Interp Factor V Activity POC ABG pH POC ABG pCO2 POC ABG pO2 ABG pO2 ABG HCO3 ABG Base Excess ABG Hemoglobin Oxyhemoglobin Sodium 135 L Potassium Chloride 97.1 L Carbon Dioxide BUN 73 H Creatinine 2.2 H Glucose 117 H POC Glucose 123 H Lactic Acid Calcium Phosphorus 1.70 L Magnesium Direct Bilirubin AST ALT Alkaline Phosphatase Lactate Dehydrogenase Troponin T C-Reactive Protein Total Protein Albumin Prealbumin Triglycerides Cholesterol LDL Cholesterol Direct HDL Cholesterol Urine pH Urine WBC (Auto) Urine Creatinine Urine Total Protein Fluid Total Protein Vancomycin Trough Rheumatoid Factor Complement C4 Miscellaneous Test Crossmatch 10/26/16 10/26/16 10/26/16 12:12 17:29 23:42 WBC RBC Hgb Hct MCV MCH MCHC RDW Plt Count Lymph % (Auto) [place] % (Auto) Lymph # [place] # Baso # Seg Neutrophils % Seg Neuts % (Manual) Lymphocytes % (Manual) Monocytes % (Manual) Eosinophils % (Manual) Basophils % (Manual) Nucleated RBC % Seg Neutrophils # Seg Neutrophils # Man Lymphocytes # (Manual) Monocytes # (Manual) Eosinophils # (Manual) PT INR Fibrinogen dRVVT Confirm Interp Factor V Activity POC ABG pH POC ABG pCO2 POC ABG pO2 ABG pO2 ABG HCO3 ABG Base Excess ABG Hemoglobin Oxyhemoglobin Sodium Potassium Chloride Carbon Dioxide BUN Creatinine Glucose POC Glucose 126 H 161 H 118 H Lactic Acid Calcium Phosphorus Magnesium Direct Bilirubin AST ALT Alkaline Phosphatase Lactate Dehydrogenase Troponin T C-Reactive Protein Total Protein Albumin Prealbumin Triglycerides Cholesterol LDL Cholesterol Direct HDL Cholesterol Urine pH Urine WBC (Auto) Urine Creatinine Urine Total Protein Fluid Total Protein Vancomycin Trough Rheumatoid Factor Complement C4 Miscellaneous Test Crossmatch 10/27/16 10/27/16 10/27/16 05:03 06:30 06:30 WBC 13.9 H RBC 3.09 L Hgb 9.2 L Hct 27.5 L MCV MCH MCHC RDW 17.0 H Plt Count Lymph % (Auto) [place] % (Auto) Lymph # [place] # Baso # Seg Neutrophils % Seg Neuts % (Manual) 78.0 H Lymphocytes % (Manual) Monocytes % (Manual) Eosinophils % (Manual) Basophils % (Manual) Nucleated RBC % 2.0 H Seg Neutrophils # Seg Neutrophils # Man 10.8 H Lymphocytes # (Manual) Monocytes # (Manual) 1.0 H Eosinophils # (Manual) PT INR Fibrinogen dRVVT Confirm Interp Factor V Activity POC ABG pH POC ABG pCO2 POC ABG pO2 ABG pO2 ABG HCO3 ABG Base Excess ABG Hemoglobin Oxyhemoglobin Sodium Potassium Chloride Carbon Dioxide BUN 40 H Creatinine 1.5 H Glucose 135 H POC Glucose 107 H Lactic Acid Calcium 8.3 L Phosphorus 1.30 L D Magnesium Direct Bilirubin AST ALT Alkaline Phosphatase Lactate Dehydrogenase Troponin T C-Reactive Protein Total Protein Albumin Prealbumin Triglycerides Cholesterol LDL Cholesterol Direct HDL Cholesterol Urine pH Urine WBC (Auto) Urine Creatinine Urine Total Protein Fluid Total Protein Vancomycin Trough Rheumatoid Factor Complement C4 Miscellaneous Test Crossmatch 10/27/16 10/27/16 10/27/16 13:27 18:07 23:40 WBC RBC Hgb Hct MCV MCH MCHC RDW Plt Count Lymph % (Auto) [place] % (Auto) Lymph # [place] # Baso # Seg Neutrophils % Seg Neuts % (Manual) Lymphocytes % (Manual) Monocytes % (Manual) Eosinophils % (Manual) Basophils % (Manual) Nucleated RBC % Seg Neutrophils # Seg Neutrophils # Man Lymphocytes # (Manual) Monocytes # (Manual) Eosinophils # (Manual) PT INR Fibrinogen dRVVT Confirm Interp Factor V Activity POC ABG pH POC ABG pCO2 POC ABG pO2 ABG pO2 ABG HCO3 ABG Base Excess ABG Hemoglobin Oxyhemoglobin Sodium Potassium Chloride Carbon Dioxide BUN Creatinine Glucose POC Glucose 117 H 121 H 118 H Lactic Acid Calcium Phosphorus Magnesium Direct Bilirubin AST ALT Alkaline Phosphatase Lactate Dehydrogenase Troponin T C-Reactive Protein Total Protein Albumin Prealbumin Triglycerides Cholesterol LDL Cholesterol Direct HDL Cholesterol Urine pH Urine WBC (Auto) Urine Creatinine Urine Total Protein Fluid Total Protein Vancomycin Trough Rheumatoid Factor Complement C4 Miscellaneous Test Crossmatch 10/28/16 10/28/16 10/28/16 05:48 06:45 06:45 WBC 14.7 H RBC 3.05 L Hgb 9.0 L Hct 26.9 L MCV MCH MCHC RDW 16.8 H Plt Count Lymph % (Auto) 8.2 L Ada % (Auto) 8.4 H Lymph # Ada # 1.2 H Baso # Seg Neutrophils % 81.9 H Seg Neuts % (Manual) Lymphocytes % (Manual) Monocytes % (Manual) Eosinophils % (Manual) Basophils % (Manual) Nucleated RBC % Seg Neutrophils # 12.1 H Seg Neutrophils # Man Lymphocytes # (Manual) Monocytes # (Manual) Eosinophils # (Manual) PT INR Fibrinogen dRVVT Confirm Interp Factor V Activity POC ABG pH POC ABG pCO2 POC ABG pO2 ABG pO2 ABG HCO3 ABG Base Excess ABG Hemoglobin Oxyhemoglobin Sodium Potassium Chloride Carbon Dioxide BUN 60 H Creatinine 1.9 H Glucose 120 H POC Glucose 114 H Lactic Acid Calcium Phosphorus Magnesium Direct Bilirubin AST ALT Alkaline Phosphatase Lactate Dehydrogenase Troponin T C-Reactive Protein Total Protein Albumin Prealbumin Triglycerides Cholesterol LDL Cholesterol Direct HDL Cholesterol Urine pH Urine WBC (Auto) Urine Creatinine Urine Total Protein Fluid Total Protein Vancomycin Trough Rheumatoid Factor Complement C4 Miscellaneous Test Crossmatch 10/28/16 10/28/16 10/29/16 17:08 23:50 05:10 WBC RBC Hgb Hct MCV MCH MCHC RDW Plt Count Lymph % (Auto) [place] % (Auto) Lymph # [place] # Baso # Seg Neutrophils % Seg Neuts % (Manual) Lymphocytes % (Manual) Monocytes % (Manual) Eosinophils % (Manual) Basophils % (Manual) Nucleated RBC % Seg Neutrophils # Seg Neutrophils # Man Lymphocytes # (Manual) Monocytes # (Manual) Eosinophils # (Manual) PT INR Fibrinogen dRVVT Confirm Interp Factor V Activity POC ABG pH POC ABG pCO2 POC ABG pO2 ABG pO2 ABG HCO3 ABG Base Excess ABG Hemoglobin Oxyhemoglobin Sodium Potassium Chloride Carbon Dioxide BUN Creatinine Glucose POC Glucose 109 H 110 H 124 H Lactic Acid Calcium Phosphorus Magnesium Direct Bilirubin AST ALT Alkaline Phosphatase Lactate Dehydrogenase Troponin T C-Reactive Protein Total Protein Albumin Prealbumin Triglycerides Cholesterol LDL Cholesterol Direct HDL Cholesterol Urine pH Urine WBC (Auto) Urine Creatinine Urine Total Protein Fluid Total Protein Vancomycin Trough Rheumatoid Factor Complement C4 Miscellaneous Test Crossmatch 10/29/16 10/29/16 10/29/16 07:45 07:45 12:19 WBC 14.7 H RBC 3.15 L Hgb 9.3 L Hct 28.9 L MCV MCH MCHC RDW 17.0 H Plt Count Lymph % (Auto) 11.9 L [place] % (Auto) 8.6 H Lymph # Ada # 1.3 H Baso # Seg Neutrophils % 78.1 H Seg Neuts % (Manual) Lymphocytes % (Manual) Monocytes % (Manual) Eosinophils % (Manual) Basophils % (Manual) Nucleated RBC % Seg Neutrophils # 11.4 H Seg Neutrophils # Man Lymphocytes # (Manual) Monocytes # (Manual) Eosinophils # (Manual) PT INR Fibrinogen dRVVT Confirm Interp Factor V Activity POC ABG pH POC ABG pCO2 POC ABG pO2 ABG pO2 ABG HCO3 ABG Base Excess ABG Hemoglobin Oxyhemoglobin Sodium Potassium 5.1 H Chloride Carbon Dioxide 19 L BUN 78 H Creatinine 2.2 H Glucose 116 H POC Glucose 118 H Lactic Acid Calcium Phosphorus Magnesium Direct Bilirubin AST ALT Alkaline Phosphatase Lactate Dehydrogenase Troponin T C-Reactive Protein Total Protein Albumin Prealbumin Triglycerides Cholesterol LDL Cholesterol Direct HDL Cholesterol Urine pH Urine WBC (Auto) Urine Creatinine Urine Total Protein Fluid Total Protein Vancomycin Trough Rheumatoid Factor Complement C4 Miscellaneous Test Crossmatch 10/29/16 10/30/16 10/30/16 17:49 01:52 03:28 WBC RBC Hgb Hct MCV MCH MCHC RDW Plt Count Lymph % (Auto) [place] % (Auto) Lymph # [place] # Baso # Seg Neutrophils % Seg Neuts % (Manual) Lymphocytes % (Manual) Monocytes % (Manual) Eosinophils % (Manual) Basophils % (Manual) Nucleated RBC % Seg Neutrophils # Seg Neutrophils # Man Lymphocytes # (Manual) Monocytes # (Manual) Eosinophils # (Manual) PT INR Fibrinogen dRVVT Confirm Interp Factor V Activity POC ABG pH POC ABG pCO2 POC ABG pO2 ABG pO2 ABG HCO3 ABG Base Excess ABG Hemoglobin Oxyhemoglobin Sodium Potassium 5.4 H Chloride 97.5 L Carbon Dioxide 19 L BUN 90 H Creatinine 2.5 H Glucose POC Glucose 120 H 129 H Lactic Acid Calcium Phosphorus 5.20 H Magnesium Direct Bilirubin AST ALT Alkaline Phosphatase Lactate Dehydrogenase Troponin T C-Reactive Protein Total Protein Albumin Prealbumin Triglycerides Cholesterol LDL Cholesterol Direct HDL Cholesterol Urine pH Urine WBC (Auto) Urine Creatinine Urine Total Protein Fluid Total Protein Vancomycin Trough Rheumatoid Factor Complement C4 Miscellaneous Test Crossmatch 10/30/16 10/30/16 10/30/16 03:28 08:19 08:19 WBC 11.6 H 15.9 H RBC 2.75 L 2.82 L Hgb 7.9 L 8.3 L Hct 24.2 L 25.2 L MCV MCH MCHC RDW 16.7 H 17.2 H Plt Count Lymph % (Auto) [place] % (Auto) 9.8 H Lymph # [place] # 1.1 H Baso # Seg Neutrophils % 74.2 H Seg Neuts % (Manual) Lymphocytes % (Manual) Monocytes % (Manual) Eosinophils % (Manual) Basophils % (Manual) Nucleated RBC % Seg Neutrophils # 8.6 H Seg Neutrophils # Man Lymphocytes # (Manual) Monocytes # (Manual) Eosinophils # (Manual) PT INR Fibrinogen dRVVT Confirm Interp Factor V Activity POC ABG pH POC ABG pCO2 POC ABG pO2 ABG pO2 ABG HCO3 ABG Base Excess ABG Hemoglobin Oxyhemoglobin Sodium Potassium 5.3 H Chloride 97.4 L Carbon Dioxide 19 L BUN 93 H Creatinine 2.6 H Glucose POC Glucose Lactic Acid Calcium Phosphorus Magnesium Direct Bilirubin AST ALT Alkaline Phosphatase Lactate Dehydrogenase Troponin T C-Reactive Protein Total Protein Albumin Prealbumin Triglycerides Cholesterol LDL Cholesterol Direct HDL Cholesterol Urine pH Urine WBC (Auto) Urine Creatinine Urine Total Protein Fluid Total Protein Vancomycin Trough Rheumatoid Factor Complement C4 Miscellaneous Test Crossmatch 10/30/16 10/30/16 10/31/16 17:11 23:56 00:40 WBC RBC Hgb Hct MCV MCH MCHC RDW Plt Count Lymph % (Auto) [place] % (Auto) Lymph # [place] # Baso # Seg Neutrophils % Seg Neuts % (Manual) Lymphocytes % (Manual) Monocytes % (Manual) Eosinophils % (Manual) Basophils % (Manual) Nucleated RBC % Seg Neutrophils # Seg Neutrophils # Man Lymphocytes # (Manual) Monocytes # (Manual) Eosinophils # (Manual) PT INR Fibrinogen dRVVT Confirm Interp Factor V Activity POC ABG pH POC ABG pCO2 POC ABG pO2 ABG pO2 ABG HCO3 ABG Base Excess ABG Hemoglobin Oxyhemoglobin Sodium Potassium Chloride Carbon Dioxide BUN Creatinine Glucose POC Glucose 106 H 117 H 120 H Lactic Acid Calcium Phosphorus Magnesium Direct Bilirubin AST ALT Alkaline Phosphatase Lactate Dehydrogenase Troponin T C-Reactive Protein Total Protein Albumin Prealbumin Triglycerides Cholesterol LDL Cholesterol Direct HDL Cholesterol Urine pH Urine WBC (Auto) Urine Creatinine Urine Total Protein Fluid Total Protein Vancomycin Trough Rheumatoid Factor Complement C4 Miscellaneous Test Crossmatch 10/31/16 10/31/16 10/31/16 05:43 07:15 07:15 WBC 12.1 H RBC 2.63 L Hgb 7.7 L Hct 23.3 L MCV MCH MCHC RDW 16.7 H Plt Count Lymph % (Auto) 11.7 L [place] % (Auto) 7.7 H Lymph # Ada # 0.9 H Baso # Seg Neutrophils % 78.0 H Seg Neuts % (Manual) Lymphocytes % (Manual) Monocytes % (Manual) Eosinophils % (Manual) Basophils % (Manual) Nucleated RBC % Seg Neutrophils # 9.4 H Seg Neutrophils # Man Lymphocytes # (Manual) Monocytes # (Manual) Eosinophils # (Manual) PT INR Fibrinogen dRVVT Confirm Interp Factor V Activity POC ABG pH POC ABG pCO2 POC ABG pO2 ABG pO2 ABG HCO3 ABG Base Excess ABG Hemoglobin Oxyhemoglobin Sodium Potassium Chloride 96.4 L Carbon Dioxide 21 L BUN 99 H Creatinine 2.6 H Glucose 144 H POC Glucose 125 H Lactic Acid Calcium Phosphorus 4.80 H Magnesium Direct Bilirubin AST ALT Alkaline Phosphatase Lactate Dehydrogenase Troponin T C-Reactive Protein Total Protein Albumin Prealbumin Triglycerides Cholesterol LDL Cholesterol Direct HDL Cholesterol Urine pH Urine WBC (Auto) Urine Creatinine Urine Total Protein Fluid Total Protein Vancomycin Trough Rheumatoid Factor Complement C4 Miscellaneous Test Crossmatch 10/31/16 10/31/16 11/01/16 11:46 18:34 00:20 WBC RBC Hgb Hct MCV MCH MCHC RDW Plt Count Lymph % (Auto) [place] % (Auto) Lymph # [place] # Baso # Seg Neutrophils % Seg Neuts % (Manual) Lymphocytes % (Manual) Monocytes % (Manual) Eosinophils % (Manual) Basophils % (Manual) Nucleated RBC % Seg Neutrophils # Seg Neutrophils # Man Lymphocytes # (Manual) Monocytes # (Manual) Eosinophils # (Manual) PT INR Fibrinogen dRVVT Confirm Interp Factor V Activity POC ABG pH POC ABG pCO2 POC ABG pO2 ABG pO2 ABG HCO3 ABG Base Excess ABG Hemoglobin Oxyhemoglobin Sodium Potassium Chloride Carbon Dioxide BUN Creatinine Glucose POC Glucose 159 H 140 H 132 H Lactic Acid Calcium Phosphorus Magnesium Direct Bilirubin AST ALT Alkaline Phosphatase Lactate Dehydrogenase Troponin T C-Reactive Protein Total Protein Albumin Prealbumin Triglycerides Cholesterol LDL Cholesterol Direct HDL Cholesterol Urine pH Urine WBC (Auto) Urine Creatinine Urine Total Protein Fluid Total Protein Vancomycin Trough Rheumatoid Factor Complement C4 Miscellaneous Test Crossmatch 11/01/16 11/01/16 11/01/16 04:55 04:55 06:11 WBC 11.2 H RBC 2.68 L Hgb 7.5 L Hct 23.7 L MCV MCH MCHC RDW 16.1 H Plt Count Lymph % (Auto) [place] % (Auto) 9.8 H Lymph # Ada # 1.1 H Baso # Seg Neutrophils % 70.8 H Seg Neuts % (Manual) Lymphocytes % (Manual) Monocytes % (Manual) Eosinophils % (Manual) Basophils % (Manual) Nucleated RBC % Seg Neutrophils # 7.9 H Seg Neutrophils # Man Lymphocytes # (Manual) Monocytes # (Manual) Eosinophils # (Manual) PT INR Fibrinogen dRVVT Confirm Interp Factor V Activity POC ABG pH POC ABG pCO2 POC ABG pO2 ABG pO2 ABG HCO3 ABG Base Excess ABG Hemoglobin Oxyhemoglobin Sodium Potassium 3.3 L D Chloride Carbon Dioxide BUN 61 H Creatinine 1.9 H Glucose 114 H POC Glucose 115 H Lactic Acid Calcium Phosphorus 1.80 L D Magnesium Direct Bilirubin AST ALT Alkaline Phosphatase Lactate Dehydrogenase Troponin T C-Reactive Protein Total Protein Albumin Prealbumin Triglycerides Cholesterol LDL Cholesterol Direct HDL Cholesterol Urine pH Urine WBC (Auto) Urine Creatinine Urine Total Protein Fluid Total Protein Vancomycin Trough Rheumatoid Factor Complement C4 Miscellaneous Test Crossmatch 11/01/16 11/01/16 11/01/16 12:29 18:23 23:58 WBC RBC Hgb Hct MCV MCH MCHC RDW Plt Count Lymph % (Auto) [place] % (Auto) Lymph # [place] # Baso # Seg Neutrophils % Seg Neuts % (Manual) Lymphocytes % (Manual) Monocytes % (Manual) Eosinophils % (Manual) Basophils % (Manual) Nucleated RBC % Seg Neutrophils # Seg Neutrophils # Man Lymphocytes # (Manual) Monocytes # (Manual) Eosinophils # (Manual) PT INR Fibrinogen dRVVT Confirm Interp Factor V Activity POC ABG pH POC ABG pCO2 POC ABG pO2 ABG pO2 ABG HCO3 ABG Base Excess ABG Hemoglobin Oxyhemoglobin Sodium Potassium Chloride Carbon Dioxide BUN Creatinine Glucose POC Glucose 142 H 143 H 128 H Lactic Acid Calcium Phosphorus Magnesium Direct Bilirubin AST ALT Alkaline Phosphatase Lactate Dehydrogenase Troponin T C-Reactive Protein Total Protein Albumin Prealbumin Triglycerides Cholesterol LDL Cholesterol Direct HDL Cholesterol Urine pH Urine WBC (Auto) Urine Creatinine Urine Total Protein Fluid Total Protein Vancomycin Trough Rheumatoid Factor Complement C4 Miscellaneous Test Crossmatch 11/02/16 11/02/16 11/02/16 04:16 05:29 11:58 WBC RBC Hgb Hct MCV MCH MCHC RDW Plt Count Lymph % (Auto) [place] % (Auto) Lymph # [place] # Baso # Seg Neutrophils % Seg Neuts % (Manual) Lymphocytes % (Manual) Monocytes % (Manual) Eosinophils % (Manual) Basophils % (Manual) Nucleated RBC % Seg Neutrophils # Seg Neutrophils # Man Lymphocytes # (Manual) Monocytes # (Manual) Eosinophils # (Manual) PT INR Fibrinogen dRVVT Confirm Interp Factor V Activity POC ABG pH POC ABG pCO2 POC ABG pO2 ABG pO2 ABG HCO3 ABG Base Excess ABG Hemoglobin Oxyhemoglobin Sodium Potassium 3.1 L Chloride Carbon Dioxide BUN 73 H Creatinine 2.3 H Glucose 112 H POC Glucose 135 H 149 H Lactic Acid Calcium Phosphorus Magnesium Direct Bilirubin AST ALT Alkaline Phosphatase Lactate Dehydrogenase Troponin T C-Reactive Protein Total Protein Albumin Prealbumin Triglycerides Cholesterol LDL Cholesterol Direct HDL Cholesterol Urine pH Urine WBC (Auto) Urine Creatinine Urine Total Protein Fluid Total Protein Vancomycin Trough Rheumatoid Factor Complement C4 Miscellaneous Test Crossmatch 11/02/16 11/02/16 11/03/16 17:42 22:54 06:00 WBC RBC Hgb Hct MCV MCH MCHC RDW Plt Count Lymph % (Auto) [place] % (Auto) Lymph # [place] # Baso # Seg Neutrophils % Seg Neuts % (Manual) Lymphocytes % (Manual) Monocytes % (Manual) Eosinophils % (Manual) Basophils % (Manual) Nucleated RBC % Seg Neutrophils # Seg Neutrophils # Man Lymphocytes # (Manual) Monocytes # (Manual) Eosinophils # (Manual) PT INR Fibrinogen dRVVT Confirm Interp Factor V Activity POC ABG pH POC ABG pCO2 POC ABG pO2 ABG pO2 ABG HCO3 ABG Base Excess ABG Hemoglobin Oxyhemoglobin Sodium Potassium Chloride 96.7 L Carbon Dioxide BUN 41 H Creatinine 1.5 H Glucose 145 H POC Glucose 182 H 115 H Lactic Acid Calcium Phosphorus 1.60 L D Magnesium 1.50 L Direct Bilirubin AST ALT Alkaline Phosphatase Lactate Dehydrogenase Troponin T C-Reactive Protein Total Protein Albumin Prealbumin Triglycerides Cholesterol LDL Cholesterol Direct HDL Cholesterol Urine pH Urine WBC (Auto) Urine Creatinine Urine Total Protein Fluid Total Protein Vancomycin Trough Rheumatoid Factor Complement C4 Miscellaneous Test Crossmatch 11/03/16 11/03/16 11/03/16 11:53 17:45 23:37 WBC RBC Hgb Hct MCV MCH MCHC RDW Plt Count Lymph % (Auto) [place] % (Auto) Lymph # [place] # Baso # Seg Neutrophils % Seg Neuts % (Manual) Lymphocytes % (Manual) Monocytes % (Manual) Eosinophils % (Manual) Basophils % (Manual) Nucleated RBC % Seg Neutrophils # Seg Neutrophils # Man Lymphocytes # (Manual) Monocytes # (Manual) Eosinophils # (Manual) PT INR Fibrinogen dRVVT Confirm Interp Factor V Activity POC ABG pH POC ABG pCO2 POC ABG pO2 ABG pO2 ABG HCO3 ABG Base Excess ABG Hemoglobin Oxyhemoglobin Sodium Potassium Chloride Carbon Dioxide BUN Creatinine Glucose POC Glucose 131 H 134 H 113 H Lactic Acid Calcium Phosphorus Magnesium Direct Bilirubin AST ALT Alkaline Phosphatase Lactate Dehydrogenase Troponin T C-Reactive Protein Total Protein Albumin Prealbumin Triglycerides Cholesterol LDL Cholesterol Direct HDL Cholesterol Urine pH Urine WBC (Auto) Urine Creatinine Urine Total Protein Fluid Total Protein Vancomycin Trough Rheumatoid Factor Complement C4 Miscellaneous Test Crossmatch 11/04/16 11/04/16 11/04/16 05:41 06:00 12:10 WBC RBC Hgb Hct MCV MCH MCHC RDW Plt Count Lymph % (Auto) [place] % (Auto) Lymph # [place] # Baso # Seg Neutrophils % Seg Neuts % (Manual) Lymphocytes % (Manual) Monocytes % (Manual) Eosinophils % (Manual) Basophils % (Manual) Nucleated RBC % Seg Neutrophils # Seg Neutrophils # Man Lymphocytes # (Manual) Monocytes # (Manual) Eosinophils # (Manual) PT INR Fibrinogen dRVVT Confirm Interp Factor V Activity POC ABG pH POC ABG pCO2 POC ABG pO2 ABG pO2 ABG HCO3 ABG Base Excess ABG Hemoglobin Oxyhemoglobin Sodium Potassium Chloride 96.7 L Carbon Dioxide BUN 52 H Creatinine 1.9 H Glucose 126 H POC Glucose 137 H 191 H Lactic Acid Calcium Phosphorus Magnesium Direct Bilirubin AST ALT Alkaline Phosphatase Lactate Dehydrogenase Troponin T C-Reactive Protein Total Protein Albumin Prealbumin Triglycerides Cholesterol LDL Cholesterol Direct HDL Cholesterol Urine pH Urine WBC (Auto) Urine Creatinine Urine Total Protein Fluid Total Protein Vancomycin Trough Rheumatoid Factor Complement C4 Miscellaneous Test Crossmatch 11/04/16 11/05/1611/05/17 22:57 03:10 05:10 WBC RBC Hgb Hct MCV MCH MCHC RDW Plt Count Lymph % (Auto) [place] % (Auto) Lymph # [place] # Baso # Seg Neutrophils % Seg Neuts % (Manual) Lymphocytes % (Manual) Monocytes % (Manual) Eosinophils % (Manual) Basophils % (Manual) Nucleated RBC % Seg Neutrophils # Seg Neutrophils # Man Lymphocytes # (Manual) Monocytes # (Manual) Eosinophils # (Manual) PT INR Fibrinogen dRVVT Confirm Interp Factor V Activity POC ABG pH POC ABG pCO2 POC ABG pO2 ABG pO2 ABG HCO3 ABG Base Excess ABG Hemoglobin Oxyhemoglobin Sodium 136 L Potassium Chloride 97.2 L Carbon Dioxide BUN 32 H Creatinine 1.3 H Glucose 123 H POC Glucose 125 H 108 H Lactic Acid Calcium 7.8 L Phosphorus Magnesium Direct Bilirubin AST ALT Alkaline Phosphatase Lactate Dehydrogenase Troponin T C-Reactive Protein Total Protein Albumin Prealbumin Triglycerides Cholesterol LDL Cholesterol Direct HDL Cholesterol Urine pH Urine WBC (Auto) Urine Creatinine Urine Total Protein Fluid Total Protein Vancomycin Trough Rheumatoid Factor Complement C4 Miscellaneous Test Crossmatch 11/05/16 11/05/16 11/05/16 12:23 13:09 13:25 WBC RBC Hgb Hct MCV MCH MCHC RDW Plt Count Lymph % (Auto) [place] % (Auto) Lymph # [place] # Baso # Seg Neutrophils % Seg Neuts % (Manual) Lymphocytes % (Manual) Monocytes % (Manual) Eosinophils % (Manual) Basophils % (Manual) Nucleated RBC % Seg Neutrophils # Seg Neutrophils # Man Lymphocytes # (Manual) Monocytes # (Manual) Eosinophils # (Manual) PT INR Fibrinogen dRVVT Confirm Interp Factor V Activity POC ABG pH POC ABG pCO2 POC ABG pO2 ABG pO2 ABG HCO3 ABG Base Excess ABG Hemoglobin Oxyhemoglobin Sodium Potassium Chloride Carbon Dioxide BUN Creatinine Glucose POC Glucose 124 H Lactic Acid Calcium Phosphorus Magnesium Direct Bilirubin AST ALT Alkaline Phosphatase Lactate Dehydrogenase Troponin T C-Reactive Protein 11.40 H Total Protein Albumin Prealbumin Triglycerides Cholesterol LDL Cholesterol Direct HDL Cholesterol Urine pH 9.0 H Urine WBC (Auto) Urine Creatinine Urine Total Protein Fluid Total Protein Vancomycin Trough Rheumatoid Factor Complement C4 Miscellaneous Test Crossmatch 11/05/16 11/05/16 11/05/16 13:25 17:54 23:42 WBC RBC Hgb Hct MCV MCH MCHC RDW Plt Count Lymph % (Auto) [place] % (Auto) Lymph # [place] # Baso # Seg Neutrophils % Seg Neuts % (Manual) Lymphocytes % (Manual) Monocytes % (Manual) Eosinophils % (Manual) Basophils % (Manual) Nucleated RBC % Seg Neutrophils # Seg Neutrophils # Man Lymphocytes # (Manual) Monocytes # (Manual) Eosinophils # (Manual) PT INR Fibrinogen dRVVT Confirm Interp Factor V Activity POC ABG pH POC ABG pCO2 POC ABG pO2 ABG pO2 ABG HCO3 ABG Base Excess ABG Hemoglobin Oxyhemoglobin Sodium Potassium Chloride Carbon Dioxide BUN Creatinine Glucose POC Glucose 114 H 134 H Lactic Acid Calcium Phosphorus Magnesium Direct Bilirubin AST ALT Alkaline Phosphatase Lactate Dehydrogenase Troponin T C-Reactive Protein Total Protein Albumin Prealbumin Triglycerides Cholesterol LDL Cholesterol Direct HDL Cholesterol Urine pH Urine WBC (Auto) Urine Creatinine Urine Total Protein Fluid Total Protein Vancomycin Trough Rheumatoid Factor Complement C4 Miscellaneous Test Flexitest 1 H Crossmatch 11/06/16 11/06/16 11/06/16 04:56 06:25 06:25 WBC RBC 2.50 L Hgb 7.3 L Hct 22.5 L MCV MCH MCHC RDW 16.9 H Plt Count Lymph % (Auto) [place] % (Auto) 10.5 H Lymph # [place] # 1.1 H Baso # Seg Neutrophils % Seg Neuts % (Manual) Lymphocytes % (Manual) Monocytes % (Manual) Eosinophils % (Manual) Basophils % (Manual) Nucleated RBC % Seg Neutrophils # Seg Neutrophils # Man Lymphocytes # (Manual) Monocytes # (Manual) Eosinophils # (Manual) PT INR Fibrinogen dRVVT Confirm Interp Factor V Activity POC ABG pH POC ABG pCO2 POC ABG pO2 ABG pO2 ABG HCO3 ABG Base Excess ABG Hemoglobin Oxyhemoglobin Sodium Potassium 5.1 H Chloride 95.9 L Carbon Dioxide BUN 52 H Creatinine 1.8 H Glucose 117 H POC Glucose 120 H Lactic Acid Calcium Phosphorus Magnesium Direct Bilirubin AST 103 H ALT 77 H Alkaline Phosphatase 285 H Lactate Dehydrogenase Troponin T C-Reactive Protein Total Protein 6.2 L Albumin 1.8 L Prealbumin 0.180 L Triglycerides Cholesterol LDL Cholesterol Direct HDL Cholesterol Urine pH Urine WBC (Auto) Urine Creatinine Urine Total Protein Fluid Total Protein Vancomycin Trough Rheumatoid Factor Complement C4 Miscellaneous Test Crossmatch 11/06/16 11/06/16 11/06/16 11:56 17:14 23:52 WBC RBC Hgb Hct MCV MCH MCHC RDW Plt Count Lymph % (Auto) [place] % (Auto) Lymph # [place] # Baso # Seg Neutrophils % Seg Neuts % (Manual) Lymphocytes % (Manual) Monocytes % (Manual) Eosinophils % (Manual) Basophils % (Manual) Nucleated RBC % Seg Neutrophils # Seg Neutrophils # Man Lymphocytes # (Manual) Monocytes # (Manual) Eosinophils # (Manual) PT INR Fibrinogen dRVVT Confirm Interp Factor V Activity POC ABG pH POC ABG pCO2 POC ABG pO2 ABG pO2 ABG HCO3 ABG Base Excess ABG Hemoglobin Oxyhemoglobin Sodium Potassium Chloride Carbon Dioxide BUN Creatinine Glucose POC Glucose 141 H 125 H 130 H Lactic Acid Calcium Phosphorus Magnesium Direct Bilirubin AST ALT Alkaline Phosphatase Lactate Dehydrogenase Troponin T C-Reactive Protein Total Protein Albumin Prealbumin Triglycerides Cholesterol LDL Cholesterol Direct HDL Cholesterol Urine pH Urine WBC (Auto) Urine Creatinine Urine Total Protein Fluid Total Protein Vancomycin Trough Rheumatoid Factor Complement C4 Miscellaneous Test Crossmatch 11/07/16 11/07/16 11/07/16 06:30 06:30 09:37 WBC RBC 2.18 L Hgb 6.3 L Hct 19.7 L* MCV MCH MCHC RDW 16.8 H Plt Count Lymph % (Auto) [place] % (Auto) 10.0 H Lymph # [place] # 1.0 H Baso # Seg Neutrophils % Seg Neuts % (Manual) Lymphocytes % (Manual) Monocytes % (Manual) Eosinophils % (Manual) Basophils % (Manual) Nucleated RBC % Seg Neutrophils # Seg Neutrophils # Man Lymphocytes # (Manual) Monocytes # (Manual) Eosinophils # (Manual) PT INR Fibrinogen dRVVT Confirm Interp Factor V Activity POC ABG pH POC ABG pCO2 POC ABG pO2 ABG pO2 ABG HCO3 ABG Base Excess ABG Hemoglobin Oxyhemoglobin Sodium 135 L Potassium Chloride 95.6 L Carbon Dioxide BUN 70 H Creatinine 2.0 H Glucose 126 H POC Glucose Lactic Acid Calcium Phosphorus Magnesium Direct Bilirubin AST ALT Alkaline Phosphatase Lactate Dehydrogenase Troponin T C-Reactive Protein Total Protein Albumin Prealbumin Triglycerides Cholesterol LDL Cholesterol Direct HDL Cholesterol Urine pH Urine WBC (Auto) Urine Creatinine Urine Total Protein Fluid Total Protein Vancomycin Trough Rheumatoid Factor Complement C4 Miscellaneous Test Crossmatch See Detail 11/07/16 11/07/16 11/07/16 12:52 18:51 21:26 WBC RBC Hgb Hct MCV MCH MCHC RDW Plt Count Lymph % (Auto) [place] % (Auto) Lymph # [place] # Baso # Seg Neutrophils % Seg Neuts % (Manual) Lymphocytes % (Manual) Monocytes % (Manual) Eosinophils % (Manual) Basophils % (Manual) Nucleated RBC % Seg Neutrophils # Seg Neutrophils # Man Lymphocytes # (Manual) Monocytes # (Manual) Eosinophils # (Manual) PT INR Fibrinogen dRVVT Confirm Interp Factor V Activity POC ABG pH 7.523 H POC ABG pCO2 34.6 L POC ABG pO2 53 L ABG pO2 ABG HCO3 ABG Base Excess ABG Hemoglobin Oxyhemoglobin Sodium Potassium Chloride Carbon Dioxide BUN Creatinine Glucose POC Glucose 142 H 155 H Lactic Acid Calcium Phosphorus Magnesium Direct Bilirubin AST ALT Alkaline Phosphatase Lactate Dehydrogenase Troponin T C-Reactive Protein Total Protein Albumin Prealbumin Triglycerides Cholesterol LDL Cholesterol Direct HDL Cholesterol Urine pH Urine WBC (Auto) Urine Creatinine Urine Total Protein Fluid Total Protein Vancomycin Trough Rheumatoid Factor Complement C4 Miscellaneous Test Crossmatch 11/07/16 11/08/16 11/08/16 21:34 13:03 23:37 WBC RBC 2.63 L Hgb 7.7 L Hct 22.7 L MCV MCH MCHC RDW 17.0 H Plt Count Lymph % (Auto) [place] % (Auto) Lymph # [place] # Baso # Seg Neutrophils % Seg Neuts % (Manual) Lymphocytes % (Manual) Monocytes % (Manual) Eosinophils % (Manual) Basophils % (Manual) Nucleated RBC % Seg Neutrophils # Seg Neutrophils # Man Lymphocytes # (Manual) Monocytes # (Manual) Eosinophils # (Manual) PT INR Fibrinogen dRVVT Confirm Interp Factor V Activity POC ABG pH 7.478 H POC ABG pCO2 34.0 L POC ABG pO2 50 L ABG pO2 ABG HCO3 ABG Base Excess ABG Hemoglobin Oxyhemoglobin Sodium Potassium Chloride Carbon Dioxide BUN Creatinine Glucose POC Glucose 113 H Lactic Acid Calcium Phosphorus Magnesium Direct Bilirubin AST ALT Alkaline Phosphatase Lactate Dehydrogenase Troponin T C-Reactive Protein Total Protein Albumin Prealbumin Triglycerides Cholesterol LDL Cholesterol Direct HDL Cholesterol Urine pH Urine WBC (Auto) Urine Creatinine Urine Total Protein Fluid Total Protein Vancomycin Trough Rheumatoid Factor Complement C4 Miscellaneous Test Crossmatch 11/09/16 11/09/16 11/09/16 04:35 10:15 18:21 WBC RBC 2.68 L Hgb 7.8 L Hct 23.3 L MCV MCH MCHC RDW 17.0 H Plt Count Lymph % (Auto) [place] % (Auto) 12.1 H Lymph # [place] # 1.1 H Baso # Seg Neutrophils % Seg Neuts % (Manual) Lymphocytes % (Manual) Monocytes % (Manual) Eosinophils % (Manual) Basophils % (Manual) Nucleated RBC % Seg Neutrophils # Seg Neutrophils # Man Lymphocytes # (Manual) Monocytes # (Manual) Eosinophils # (Manual) PT INR Fibrinogen dRVVT Confirm Interp Factor V Activity POC ABG pH POC ABG pCO2 POC ABG pO2 ABG pO2 ABG HCO3 ABG Base Excess ABG Hemoglobin Oxyhemoglobin Sodium Potassium Chloride Carbon Dioxide BUN 51 H Creatinine 1.8 H Glucose POC Glucose 60 L Lactic Acid Calcium 8.3 L Phosphorus Magnesium Direct Bilirubin AST ALT Alkaline Phosphatase Lactate Dehydrogenase Troponin T C-Reactive Protein Total Protein Albumin Prealbumin Triglycerides Cholesterol LDL Cholesterol Direct HDL Cholesterol Urine pH Urine WBC (Auto) Urine Creatinine Urine Total Protein Fluid Total Protein Vancomycin Trough Rheumatoid Factor Complement C4 Miscellaneous Test Crossmatch 11/09/16 11/10/16 11/10/16 18:55 07:00 11:51 WBC RBC Hgb Hct MCV MCH MCHC RDW Plt Count Lymph % (Auto) [place] % (Auto) Lymph # [place] # Baso # Seg Neutrophils % Seg Neuts % (Manual) Lymphocytes % (Manual) Monocytes % (Manual) Eosinophils % (Manual) Basophils % (Manual) Nucleated RBC % Seg Neutrophils # Seg Neutrophils # Man Lymphocytes # (Manual) Monocytes # (Manual) Eosinophils # (Manual) PT INR Fibrinogen dRVVT Confirm Interp Factor V Activity POC ABG pH POC ABG pCO2 POC ABG pO2 ABG pO2 ABG HCO3 ABG Base Excess ABG Hemoglobin Oxyhemoglobin Sodium Potassium 3.0 L D Chloride 97.4 L Carbon Dioxide BUN 28 H Creatinine 1.3 H Glucose POC Glucose 68 L 120 H Lactic Acid Calcium 7.8 L Phosphorus Magnesium Direct Bilirubin AST ALT Alkaline Phosphatase Lactate Dehydrogenase Troponin T C-Reactive Protein Total Protein Albumin Prealbumin Triglycerides Cholesterol LDL Cholesterol Direct HDL Cholesterol Urine pH Urine WBC (Auto) Urine Creatinine Urine Total Protein Fluid Total Protein Vancomycin Trough Rheumatoid Factor Complement C4 Miscellaneous Test Crossmatch 11/10/16 11/11/16 11/11/16 14:20 06:59 06:59 WBC RBC 2.81 L Hgb 8.1 L Hct 24.4 L MCV MCH MCHC RDW 16.4 H Plt Count Lymph % (Auto) [place] % (Auto) 10.8 H Lymph # Ada # 1.0 H Baso # Seg Neutrophils % Seg Neuts % (Manual) Lymphocytes % (Manual) Monocytes % (Manual) Eosinophils % (Manual) Basophils % (Manual) Nucleated RBC % Seg Neutrophils # Seg Neutrophils # Man Lymphocytes # (Manual) Monocytes # (Manual) Eosinophils # (Manual) PT INR Fibrinogen dRVVT Confirm Interp Factor V Activity POC ABG pH POC ABG pCO2 POC ABG pO2 ABG pO2 ABG HCO3 ABG Base Excess ABG Hemoglobin Oxyhemoglobin Sodium Potassium Chloride Carbon Dioxide BUN Creatinine Glucose POC Glucose Lactic Acid Calcium Phosphorus Magnesium Direct Bilirubin AST ALT Alkaline Phosphatase Lactate Dehydrogenase 196 H Troponin T C-Reactive Protein Total Protein 6.1 L Albumin Prealbumin Triglycerides Cholesterol LDL Cholesterol Direct HDL Cholesterol Urine pH Urine WBC (Auto) Urine Creatinine Urine Total Protein Fluid Total Protein < 3.0 L Vancomycin Trough Rheumatoid Factor Complement C4 Miscellaneous Test Crossmatch 11/11/16 11/11/16 11/12/16 06:59 09:50 04:00 WBC RBC Hgb Hct MCV MCH MCHC RDW Plt Count Lymph % (Auto) [place] % (Auto) Lymph # [place] # Baso # Seg Neutrophils % Seg Neuts % (Manual) Lymphocytes % (Manual) Monocytes % (Manual) Eosinophils % (Manual) Basophils % (Manual) Nucleated RBC % Seg Neutrophils # Seg Neutrophils # Man Lymphocytes # (Manual) Monocytes # (Manual) Eosinophils # (Manual) PT INR 1.18 H Fibrinogen dRVVT Confirm Interp Factor V Activity POC ABG pH POC ABG pCO2 POC ABG pO2 ABG pO2 ABG HCO3 ABG Base Excess ABG Hemoglobin Oxyhemoglobin Sodium 136 L 133 L Potassium Chloride 96.1 L 94.8 L Carbon Dioxide 21 L BUN 37 H 42 H Creatinine 1.8 H 2.0 H Glucose POC Glucose Lactic Acid Calcium Phosphorus Magnesium Direct Bilirubin AST ALT Alkaline Phosphatase Lactate Dehydrogenase Troponin T C-Reactive Protein Total Protein Albumin Prealbumin Triglycerides Cholesterol LDL Cholesterol Direct HDL Cholesterol Urine pH Urine WBC (Auto) Urine Creatinine Urine Total Protein Fluid Total Protein Vancomycin Trough Rheumatoid Factor Complement C4 Miscellaneous Test Crossmatch 11/12/16 11/12/16 11/13/16 04:00 23:55 05:53 WBC RBC Hgb 8.9 L Hct 27.2 L MCV MCH MCHC RDW Plt Count Lymph % (Auto) [place] % (Auto) Lymph # [place] # Baso # Seg Neutrophils % Seg Neuts % (Manual) Lymphocytes % (Manual) Monocytes % (Manual) Eosinophils % (Manual) Basophils % (Manual) Nucleated RBC % Seg Neutrophils # Seg Neutrophils # Man Lymphocytes # (Manual) Monocytes # (Manual) Eosinophils # (Manual) PT INR Fibrinogen dRVVT Confirm Interp Factor V Activity POC ABG pH POC ABG pCO2 POC ABG pO2 ABG pO2 ABG HCO3 ABG Base Excess ABG Hemoglobin Oxyhemoglobin Sodium Potassium Chloride Carbon Dioxide BUN Creatinine Glucose POC Glucose 132 H 120 H Lactic Acid Calcium Phosphorus Magnesium Direct Bilirubin AST ALT Alkaline Phosphatase Lactate Dehydrogenase Troponin T C-Reactive Protein Total Protein Albumin Prealbumin Triglycerides Cholesterol LDL Cholesterol Direct HDL Cholesterol Urine pH Urine WBC (Auto) Urine Creatinine Urine Total Protein Fluid Total Protein Vancomycin Trough Rheumatoid Factor Complement C4 Miscellaneous Test Crossmatch 11/13/16 11/13/16 11/13/16 11:43 17:09 23:41 WBC RBC Hgb Hct MCV MCH MCHC RDW Plt Count Lymph % (Auto) [place] % (Auto) Lymph # [place] # Baso # Seg Neutrophils % Seg Neuts % (Manual) Lymphocytes % (Manual) Monocytes % (Manual) Eosinophils % (Manual) Basophils % (Manual) Nucleated RBC % Seg Neutrophils # Seg Neutrophils # Man Lymphocytes # (Manual) Monocytes # (Manual) Eosinophils # (Manual) PT INR Fibrinogen dRVVT Confirm Interp Factor V Activity POC ABG pH POC ABG pCO2 POC ABG pO2 ABG pO2 ABG HCO3 ABG Base Excess ABG Hemoglobin Oxyhemoglobin Sodium Potassium Chloride Carbon Dioxide BUN Creatinine Glucose POC Glucose 114 H 113 H 108 H Lactic Acid Calcium Phosphorus Magnesium Direct Bilirubin AST ALT Alkaline Phosphatase Lactate Dehydrogenase Troponin T C-Reactive Protein Total Protein Albumin Prealbumin Triglycerides Cholesterol LDL Cholesterol Direct HDL Cholesterol Urine pH Urine WBC (Auto) Urine Creatinine Urine Total Protein Fluid Total Protein Vancomycin Trough Rheumatoid Factor Complement C4 Miscellaneous Test Crossmatch 11/13/16 11/15/16 11/15/16 Unknown 00:37 03:30 WBC 11.2 H RBC 2.72 L Hgb 7.6 L Hct 23.4 L MCV MCH MCHC RDW 16.5 H Plt Count Lymph % (Auto) [place] % (Auto) Lymph # [place] # Baso # Seg Neutrophils % Seg Neuts % (Manual) Lymphocytes % (Manual) Monocytes % (Manual) Eosinophils % (Manual) Basophils % (Manual) Nucleated RBC % Seg Neutrophils # Seg Neutrophils # Man Lymphocytes # (Manual) Monocytes # (Manual) Eosinophils # (Manual) PT INR Fibrinogen dRVVT Confirm Interp Factor V Activity POC ABG pH POC ABG pCO2 POC ABG pO2 ABG pO2 ABG HCO3 ABG Base Excess ABG Hemoglobin Oxyhemoglobin Sodium 135 L Potassium Chloride 95.2 L Carbon Dioxide BUN 52 H Creatinine 2.2 H Glucose POC Glucose 108 H Lactic Acid Calcium Phosphorus Magnesium Direct Bilirubin AST ALT Alkaline Phosphatase Lactate Dehydrogenase Troponin T C-Reactive Protein Total Protein Albumin Prealbumin Triglycerides Cholesterol LDL Cholesterol Direct HDL Cholesterol Urine pH Urine WBC (Auto) Urine Creatinine Urine Total Protein Fluid Total Protein Vancomycin Trough Rheumatoid Factor Complement C4 Miscellaneous Test Crossmatch 11/15/16 11/15/16 11/15/16 03:30 05:04 11:50 WBC RBC Hgb Hct MCV MCH MCHC RDW Plt Count Lymph % (Auto) [place] % (Auto) Lymph # [place] # Baso # Seg Neutrophils % Seg Neuts % (Manual) Lymphocytes % (Manual) Monocytes % (Manual) Eosinophils % (Manual) Basophils % (Manual) Nucleated RBC % Seg Neutrophils # Seg Neutrophils # Man Lymphocytes # (Manual) Monocytes # (Manual) Eosinophils # (Manual) PT INR Fibrinogen dRVVT Confirm Interp Factor V Activity POC ABG pH POC ABG pCO2 POC ABG pO2 ABG pO2 ABG HCO3 ABG Base Excess ABG Hemoglobin Oxyhemoglobin Sodium Potassium 3.4 L Chloride Carbon Dioxide BUN 25 H Creatinine 1.5 H Glucose 103 H POC Glucose 121 H 144 H Lactic Acid Calcium Phosphorus Magnesium Direct Bilirubin AST ALT Alkaline Phosphatase Lactate Dehydrogenase Troponin T C-Reactive Protein Total Protein Albumin Prealbumin Triglycerides Cholesterol LDL Cholesterol Direct HDL Cholesterol Urine pH Urine WBC (Auto) Urine Creatinine Urine Total Protein Fluid Total Protein Vancomycin Trough Rheumatoid Factor Complement C4 Miscellaneous Test Crossmatch 11/15/16 11/15/16 11/16/16 21:28 23:20 11:44 WBC RBC Hgb Hct MCV MCH MCHC RDW Plt Count Lymph % (Auto) [place] % (Auto) Lymph # [place] # Baso # Seg Neutrophils % Seg Neuts % (Manual) Lymphocytes % (Manual) Monocytes % (Manual) Eosinophils % (Manual) Basophils % (Manual) Nucleated RBC % Seg Neutrophils # Seg Neutrophils # Man Lymphocytes # (Manual) Monocytes # (Manual) Eosinophils # (Manual) PT INR Fibrinogen dRVVT Confirm Interp Factor V Activity POC ABG pH 7.462 H POC ABG pCO2 POC ABG pO2 71 L ABG pO2 ABG HCO3 ABG Base Excess ABG Hemoglobin Oxyhemoglobin Sodium Potassium Chloride Carbon Dioxide BUN Creatinine Glucose POC Glucose 116 H 133 H Lactic Acid Calcium Phosphorus Magnesium Direct Bilirubin AST ALT Alkaline Phosphatase Lactate Dehydrogenase Troponin T C-Reactive Protein Total Protein Albumin Prealbumin Triglycerides Cholesterol LDL Cholesterol Direct HDL Cholesterol Urine pH Urine WBC (Auto) Urine Creatinine Urine Total Protein Fluid Total Protein Vancomycin Trough Rheumatoid Factor Complement C4 Miscellaneous Test Crossmatch 11/16/16 11/16/16 11/16/16 12:20 17:05 23:35 WBC 11.7 H RBC 2.73 L Hgb 7.6 L Hct 23.7 L MCV MCH MCHC RDW 16.6 H Plt Count Lymph % (Auto) [place] % (Auto) Lymph # [place] # Baso # Seg Neutrophils % Seg Neuts % (Manual) Lymphocytes % (Manual) Monocytes % (Manual) Eosinophils % (Manual) Basophils % (Manual) Nucleated RBC % Seg Neutrophils # Seg Neutrophils # Man Lymphocytes # (Manual) Monocytes # (Manual) Eosinophils # (Manual) PT INR Fibrinogen dRVVT Confirm Interp Factor V Activity POC ABG pH POC ABG pCO2 POC ABG pO2 ABG pO2 ABG HCO3 ABG Base Excess ABG Hemoglobin Oxyhemoglobin Sodium Potassium Chloride Carbon Dioxide BUN Creatinine Glucose POC Glucose 154 H 125 H Lactic Acid Calcium Phosphorus Magnesium Direct Bilirubin AST ALT Alkaline Phosphatase Lactate Dehydrogenase Troponin T C-Reactive Protein Total Protein Albumin Prealbumin Triglycerides Cholesterol LDL Cholesterol Direct HDL Cholesterol Urine pH Urine WBC (Auto) Urine Creatinine Urine Total Protein Fluid Total Protein Vancomycin Trough Rheumatoid Factor Complement C4 Miscellaneous Test Crossmatch 11/17/16 11/17/16 11/17/16 03:20 03:20 03:20 WBC RBC 2.55 L Hgb 7.3 L Hct 21.9 L MCV MCH MCHC RDW 16.6 H Plt Count Lymph % (Auto) [place] % (Auto) 11.5 H Lymph # [place] # 1.1 H Baso # Seg Neutrophils % Seg Neuts % (Manual) Lymphocytes % (Manual) Monocytes % (Manual) Eosinophils % (Manual) Basophils % (Manual) Nucleated RBC % Seg Neutrophils # Seg Neutrophils # Man Lymphocytes # (Manual) Monocytes # (Manual) Eosinophils # (Manual) PT 16.8 H INR 1.37 H Fibrinogen dRVVT Confirm Interp Factor V Activity POC ABG pH POC ABG pCO2 POC ABG pO2 ABG pO2 ABG HCO3 ABG Base Excess ABG Hemoglobin Oxyhemoglobin Sodium Potassium 3.5 L Chloride Carbon Dioxide BUN 21 H Creatinine Glucose POC Glucose Lactic Acid Calcium 7.9 L Phosphorus Magnesium Direct Bilirubin AST ALT Alkaline Phosphatase Lactate Dehydrogenase Troponin T C-Reactive Protein Total Protein Albumin Prealbumin Triglycerides Cholesterol LDL Cholesterol Direct HDL Cholesterol Urine pH Urine WBC (Auto) Urine Creatinine Urine Total Protein Fluid Total Protein Vancomycin Trough Rheumatoid Factor Complement C4 Miscellaneous Test Crossmatch 11/17/16 11/17/16 11/17/16 06:34 11:21 21:22 WBC RBC Hgb Hct MCV MCH MCHC RDW Plt Count Lymph % (Auto) [place] % (Auto) Lymph # [place] # Baso # Seg Neutrophils % Seg Neuts % (Manual) Lymphocytes % (Manual) Monocytes % (Manual) Eosinophils % (Manual) Basophils % (Manual) Nucleated RBC % Seg Neutrophils # Seg Neutrophils # Man Lymphocytes # (Manual) Monocytes # (Manual) Eosinophils # (Manual) PT INR Fibrinogen dRVVT Confirm Interp Factor V Activity POC ABG pH 7.467 H POC ABG pCO2 POC ABG pO2 73 L ABG pO2 ABG HCO3 ABG Base Excess ABG Hemoglobin Oxyhemoglobin Sodium Potassium Chloride Carbon Dioxide BUN Creatinine Glucose POC Glucose 121 H 119 H Lactic Acid Calcium Phosphorus Magnesium Direct Bilirubin AST ALT Alkaline Phosphatase Lactate Dehydrogenase Troponin T C-Reactive Protein Total Protein Albumin Prealbumin Triglycerides Cholesterol LDL Cholesterol Direct HDL Cholesterol Urine pH Urine WBC (Auto) Urine Creatinine Urine Total Protein Fluid Total Protein Vancomycin Trough Rheumatoid Factor Complement C4 Miscellaneous Test Crossmatch 11/18/16 11/18/16 11/19/16 12:16 17:19 00:00 WBC RBC Hgb Hct MCV MCH MCHC RDW Plt Count Lymph % (Auto) [place] % (Auto) Lymph # [place] # Baso # Seg Neutrophils % Seg Neuts % (Manual) Lymphocytes % (Manual) Monocytes % (Manual) Eosinophils % (Manual) Basophils % (Manual) Nucleated RBC % Seg Neutrophils # Seg Neutrophils # Man Lymphocytes # (Manual) Monocytes # (Manual) Eosinophils # (Manual) PT INR Fibrinogen dRVVT Confirm Interp Factor V Activity POC ABG pH POC ABG pCO2 POC ABG pO2 ABG pO2 ABG HCO3 ABG Base Excess ABG Hemoglobin Oxyhemoglobin Sodium Potassium Chloride Carbon Dioxide BUN Creatinine Glucose POC Glucose 124 H 162 H 139 H Lactic Acid Calcium Phosphorus Magnesium Direct Bilirubin AST ALT Alkaline Phosphatase Lactate Dehydrogenase Troponin T C-Reactive Protein Total Protein Albumin Prealbumin Triglycerides Cholesterol LDL Cholesterol Direct HDL Cholesterol Urine pH Urine WBC (Auto) Urine Creatinine Urine Total Protein Fluid Total Protein Vancomycin Trough Rheumatoid Factor Complement C4 Miscellaneous Test Crossmatch 11/19/16 11/19/16 11/20/16 05:00 12:43 00:40 WBC RBC Hgb Hct MCV MCH MCHC RDW Plt Count Lymph % (Auto) [place] % (Auto) Lymph # [place] # Baso # Seg Neutrophils % Seg Neuts % (Manual) Lymphocytes % (Manual) Monocytes % (Manual) Eosinophils % (Manual) Basophils % (Manual) Nucleated RBC % Seg Neutrophils # Seg Neutrophils # Man Lymphocytes # (Manual) Monocytes # (Manual) Eosinophils # (Manual) PT INR Fibrinogen dRVVT Confirm Interp Factor V Activity POC ABG pH POC ABG pCO2 POC ABG pO2 ABG pO2 ABG HCO3 ABG Base Excess ABG Hemoglobin Oxyhemoglobin Sodium Potassium Chloride Carbon Dioxide BUN Creatinine Glucose POC Glucose 110 H 125 H 136 H Lactic Acid Calcium Phosphorus Magnesium Direct Bilirubin AST ALT Alkaline Phosphatase Lactate Dehydrogenase Troponin T C-Reactive Protein Total Protein Albumin Prealbumin Triglycerides Cholesterol LDL Cholesterol Direct HDL Cholesterol Urine pH Urine WBC (Auto) Urine Creatinine Urine Total Protein Fluid Total Protein Vancomycin Trough Rheumatoid Factor Complement C4 Miscellaneous Test Crossmatch 11/20/16 11/20/16 11/20/16 05:00 05:00 05:51 WBC 13.1 H RBC 2.74 L Hgb 7.7 L Hct 23.6 L MCV MCH MCHC RDW 16.9 H Plt Count Lymph % (Auto) [place] % (Auto) 10.8 H Lymph # [place] # 1.4 H Baso # Seg Neutrophils % Seg Neuts % (Manual) Lymphocytes % (Manual) Monocytes % (Manual) Eosinophils % (Manual) Basophils % (Manual) Nucleated RBC % Seg Neutrophils # 7.9 H Seg Neutrophils # Man Lymphocytes # (Manual) Monocytes # (Manual) Eosinophils # (Manual) PT INR Fibrinogen dRVVT Confirm Interp Factor V Activity POC ABG pH POC ABG pCO2 POC ABG pO2 ABG pO2 ABG HCO3 ABG Base Excess ABG Hemoglobin Oxyhemoglobin Sodium Potassium Chloride Carbon Dioxide BUN 31 H Creatinine 1.8 H Glucose 129 H POC Glucose 133 H Lactic Acid Calcium Phosphorus Magnesium Direct Bilirubin AST ALT Alkaline Phosphatase Lactate Dehydrogenase Troponin T C-Reactive Protein Total Protein Albumin Prealbumin Triglycerides Cholesterol LDL Cholesterol Direct HDL Cholesterol Urine pH Urine WBC (Auto) Urine Creatinine Urine Total Protein Fluid Total Protein Vancomycin Trough Rheumatoid Factor Complement C4 Miscellaneous Test Crossmatch 11/20/16 11/20/16 11/21/16 12:40 18:10 01:20 WBC RBC Hgb Hct MCV MCH MCHC RDW Plt Count Lymph % (Auto) [place] % (Auto) Lymph # [place] # Baso # Seg Neutrophils % Seg Neuts % (Manual) Lymphocytes % (Manual) Monocytes % (Manual) Eosinophils % (Manual) Basophils % (Manual) Nucleated RBC % Seg Neutrophils # Seg Neutrophils # Man Lymphocytes # (Manual) Monocytes # (Manual) Eosinophils # (Manual) PT INR Fibrinogen dRVVT Confirm Interp Factor V Activity POC ABG pH POC ABG pCO2 POC ABG pO2 ABG pO2 ABG HCO3 ABG Base Excess ABG Hemoglobin Oxyhemoglobin Sodium Potassium Chloride Carbon Dioxide BUN Creatinine Glucose POC Glucose 134 H 138 H 136 H Lactic Acid Calcium Phosphorus Magnesium Direct Bilirubin AST ALT Alkaline Phosphatase Lactate Dehydrogenase Troponin T C-Reactive Protein Total Protein Albumin Prealbumin Triglycerides Cholesterol LDL Cholesterol Direct HDL Cholesterol Urine pH Urine WBC (Auto) Urine Creatinine Urine Total Protein Fluid Total Protein Vancomycin Trough Rheumatoid Factor Complement C4 Miscellaneous Test Crossmatch 11/21/16 11/21/16 11/21/16 07:04 07:45 07:45 WBC 22.0 H RBC 2.91 L Hgb 8.2 L Hct 25.4 L MCV MCH MCHC RDW 17.1 H Plt Count Lymph % (Auto) [place] % (Auto) Lymph # [place] # Baso # Seg Neutrophils % Seg Neuts % (Manual) Lymphocytes % (Manual) 8.0 L Monocytes % (Manual) Eosinophils % (Manual) Basophils % (Manual) Nucleated RBC % Seg Neutrophils # Seg Neutrophils # Man 14.7 H Lymphocytes # (Manual) Monocytes # (Manual) 1.1 H Eosinophils # (Manual) PT INR Fibrinogen dRVVT Confirm Interp Factor V Activity POC ABG pH POC ABG pCO2 POC ABG pO2 ABG pO2 ABG HCO3 ABG Base Excess ABG Hemoglobin Oxyhemoglobin Sodium Potassium Chloride Carbon Dioxide BUN 42 H Creatinine 2.0 H Glucose POC Glucose 108 H Lactic Acid Calcium Phosphorus Magnesium Direct Bilirubin AST ALT Alkaline Phosphatase Lactate Dehydrogenase Troponin T C-Reactive Protein Total Protein Albumin Prealbumin Triglycerides Cholesterol LDL Cholesterol Direct HDL Cholesterol Urine pH Urine WBC (Auto) Urine Creatinine Urine Total Protein Fluid Total Protein Vancomycin Trough Rheumatoid Factor Complement C4 Miscellaneous Test Crossmatch 11/21/16 11/21/16 11/21/16 08:38 10:09 11:20 WBC RBC Hgb Hct MCV MCH MCHC RDW Plt Count Lymph % (Auto) [place] % (Auto) Lymph # [place] # Baso # Seg Neutrophils % Seg Neuts % (Manual) Lymphocytes % (Manual) Monocytes % (Manual) Eosinophils % (Manual) Basophils % (Manual) Nucleated RBC % Seg Neutrophils # Seg Neutrophils # Man Lymphocytes # (Manual) Monocytes # (Manual) Eosinophils # (Manual) PT INR Fibrinogen dRVVT Confirm Interp Factor V Activity POC ABG pH 7.346 L POC ABG pCO2 34.4 L POC ABG pO2 314 H ABG pO2 ABG HCO3 ABG Base Excess ABG Hemoglobin Oxyhemoglobin Sodium Potassium Chloride Carbon Dioxide BUN Creatinine Glucose POC Glucose 195 H 153 H Lactic Acid Calcium Phosphorus Magnesium Direct Bilirubin AST ALT Alkaline Phosphatase Lactate Dehydrogenase Troponin T C-Reactive Protein Total Protein Albumin Prealbumin Triglycerides Cholesterol LDL Cholesterol Direct HDL Cholesterol Urine pH Urine WBC (Auto) Urine Creatinine Urine Total Protein Fluid Total Protein Vancomycin Trough Rheumatoid Factor Complement C4 Miscellaneous Test Crossmatch 11/21/16 11/22/16 11/22/16 23:37 04:48 05:00 WBC 29.7 H RBC 2.73 L Hgb 7.5 L Hct 24.2 L MCV MCH 27 L MCHC RDW 17.4 H Plt Count Lymph % (Auto) [place] % (Auto) Lymph # [place] # Baso # Seg Neutrophils % Seg Neuts % (Manual) Lymphocytes % (Manual) 7.0 L Monocytes % (Manual) Eosinophils % (Manual) Basophils % (Manual) Nucleated RBC % Seg Neutrophils # Seg Neutrophils # Man 15.4 H Lymphocytes # (Manual) Monocytes # (Manual) Eosinophils # (Manual) PT INR Fibrinogen dRVVT Confirm Interp Factor V Activity POC ABG pH POC ABG pCO2 24.6 L POC ABG pO2 189 H ABG pO2 ABG HCO3 ABG Base Excess ABG Hemoglobin Oxyhemoglobin Sodium Potassium Chloride Carbon Dioxide BUN Creatinine Glucose POC Glucose 65 L Lactic Acid Calcium Phosphorus Magnesium Direct Bilirubin AST ALT Alkaline Phosphatase Lactate Dehydrogenase Troponin T C-Reactive Protein Total Protein Albumin Prealbumin Triglycerides Cholesterol LDL Cholesterol Direct HDL Cholesterol Urine pH Urine WBC (Auto) Urine Creatinine Urine Total Protein Fluid Total Protein Vancomycin Trough Rheumatoid Factor Complement C4 Miscellaneous Test Crossmatch 11/22/16 11/23/16 11/23/16 05:00 03:44 04:06 WBC RBC 2.52 L Hgb 7.2 L Hct 21.5 L MCV MCH MCHC RDW 17.1 H Plt Count Lymph % (Auto) [place] % (Auto) 12.4 H Lymph # [place] # 1.4 H Baso # Seg Neutrophils % Seg Neuts % (Manual) Lymphocytes % (Manual) Monocytes % (Manual) Eosinophils % (Manual) Basophils % (Manual) Nucleated RBC % Seg Neutrophils # Seg Neutrophils # Man Lymphocytes # (Manual) Monocytes # (Manual) Eosinophils # (Manual) PT INR Fibrinogen dRVVT Confirm Interp Factor V Activity POC ABG pH 7.493 H POC ABG pCO2 29.5 L POC ABG pO2 49 L ABG pO2 ABG HCO3 ABG Base Excess ABG Hemoglobin Oxyhemoglobin Sodium 134 L Potassium Chloride 95.9 L Carbon Dioxide 14 L D BUN 51 H Creatinine 2.6 H Glucose POC Glucose Lactic Acid Calcium Phosphorus Magnesium Direct Bilirubin AST ALT Alkaline Phosphatase Lactate Dehydrogenase Troponin T C-Reactive Protein Total Protein Albumin Prealbumin Triglycerides Cholesterol LDL Cholesterol Direct HDL Cholesterol Urine pH Urine WBC (Auto) Urine Creatinine Urine Total Protein Fluid Total Protein Vancomycin Trough Rheumatoid Factor Complement C4 Miscellaneous Test Crossmatch 11/23/16 11/23/16 11/24/16 04:06 11:29 06:39 WBC RBC Hgb Hct MCV MCH MCHC RDW Plt Count Lymph % (Auto) [place] % (Auto) Lymph # [place] # Baso # Seg Neutrophils % Seg Neuts % (Manual) Lymphocytes % (Manual) Monocytes % (Manual) Eosinophils % (Manual) Basophils % (Manual) Nucleated RBC % Seg Neutrophils # Seg Neutrophils # Man Lymphocytes # (Manual) Monocytes # (Manual) Eosinophils # (Manual) PT INR Fibrinogen dRVVT Confirm Interp Factor V Activity POC ABG pH POC ABG pCO2 POC ABG pO2 ABG pO2 ABG HCO3 ABG Base Excess ABG Hemoglobin Oxyhemoglobin Sodium 136 L Potassium Chloride 95.2 L Carbon Dioxide BUN 60 H Creatinine 2.9 H Glucose POC Glucose 69 L 305 H Lactic Acid Calcium Phosphorus Magnesium 1.60 L Direct Bilirubin AST ALT Alkaline Phosphatase Lactate Dehydrogenase Troponin T C-Reactive Protein Total Protein Albumin Prealbumin Triglycerides Cholesterol LDL Cholesterol Direct HDL Cholesterol Urine pH Urine WBC (Auto) Urine Creatinine Urine Total Protein Fluid Total Protein Vancomycin Trough Rheumatoid Factor Complement C4 Miscellaneous Test Crossmatch 11/24/16 11/24/16 11/24/16 06:43 08:08 08:08 WBC 11.2 H RBC 2.47 L Hgb 6.8 L Hct 20.6 L MCV MCH MCHC RDW 17.0 H Plt Count Lymph % (Auto) [place] % (Auto) 10.3 H Lymph # [place] # 1.2 H Baso # Seg Neutrophils % Seg Neuts % (Manual) Lymphocytes % (Manual) Monocytes % (Manual) Eosinophils % (Manual) Basophils % (Manual) Nucleated RBC % Seg Neutrophils # Seg Neutrophils # Man Lymphocytes # (Manual) Monocytes # (Manual) Eosinophils # (Manual) PT INR Fibrinogen dRVVT Confirm Interp Factor V Activity POC ABG pH POC ABG pCO2 POC ABG pO2 ABG pO2 ABG HCO3 ABG Base Excess ABG Hemoglobin Oxyhemoglobin Sodium 135 L Potassium Chloride 96.3 L Carbon Dioxide BUN 61 H Creatinine 3.1 H Glucose POC Glucose 62 L Lactic Acid Calcium 8.2 L Phosphorus Magnesium Direct Bilirubin AST ALT Alkaline Phosphatase Lactate Dehydrogenase Troponin T C-Reactive Protein Total Protein Albumin Prealbumin Triglycerides Cholesterol LDL Cholesterol Direct HDL Cholesterol Urine pH Urine WBC (Auto) Urine Creatinine Urine Total Protein Fluid Total Protein Vancomycin Trough Rheumatoid Factor Complement C4 Miscellaneous Test Crossmatch 11/24/16 11/24/16 11/24/16 08:34 11:20 12:41 WBC RBC Hgb Hct MCV MCH MCHC RDW Plt Count Lymph % (Auto) [place] % (Auto) Lymph # [place] # Baso # Seg Neutrophils % Seg Neuts % (Manual) Lymphocytes % (Manual) Monocytes % (Manual) Eosinophils % (Manual) Basophils % (Manual) Nucleated RBC % Seg Neutrophils # Seg Neutrophils # Man Lymphocytes # (Manual) Monocytes # (Manual) Eosinophils # (Manual) PT INR Fibrinogen dRVVT Confirm Interp Factor V Activity POC ABG pH POC ABG pCO2 POC ABG pO2 ABG pO2 ABG HCO3 ABG Base Excess ABG Hemoglobin Oxyhemoglobin Sodium Potassium Chloride Carbon Dioxide BUN Creatinine Glucose POC Glucose 108 H Lactic Acid Calcium Phosphorus Magnesium 1.60 L Direct Bilirubin AST ALT Alkaline Phosphatase Lactate Dehydrogenase Troponin T C-Reactive Protein Total Protein Albumin Prealbumin Triglycerides Cholesterol LDL Cholesterol Direct HDL Cholesterol Urine pH Urine WBC (Auto) Urine Creatinine Urine Total Protein Fluid Total Protein Vancomycin Trough Rheumatoid Factor Complement C4 Miscellaneous Test Crossmatch See Detail 11/25/16 11/25/16 11/25/16 00:03 04:42 04:42 WBC RBC 3.03 L Hgb 8.6 L Hct 25.3 L MCV MCH MCHC RDW 16.2 H Plt Count Lymph % (Auto) Ada % (Auto) 8.1 H Lymph # Ada # Baso # Seg Neutrophils % 71.3 H Seg Neuts % (Manual) Lymphocytes % (Manual) Monocytes % (Manual) Eosinophils % (Manual) Basophils % (Manual) Nucleated RBC % Seg Neutrophils # Seg Neutrophils # Man Lymphocytes # (Manual) Monocytes # (Manual) Eosinophils # (Manual) PT INR Fibrinogen dRVVT Confirm Interp Factor V Activity POC ABG pH POC ABG pCO2 POC ABG pO2 ABG pO2 ABG HCO3 ABG Base Excess ABG Hemoglobin Oxyhemoglobin Sodium Potassium Chloride Carbon Dioxide BUN 61 H Creatinine 3.0 H Glucose 102 H POC Glucose 113 H Lactic Acid Calcium 8.2 L Phosphorus Magnesium Direct Bilirubin AST ALT Alkaline Phosphatase 142 H Lactate Dehydrogenase Troponin T C-Reactive Protein Total Protein 5.7 L Albumin 1.5 L Prealbumin Triglycerides Cholesterol LDL Cholesterol Direct HDL Cholesterol Urine pH Urine WBC (Auto) Urine Creatinine Urine Total Protein Fluid Total Protein Vancomycin Trough Rheumatoid Factor Complement C4 Miscellaneous Test Crossmatch 11/25/16 11/25/16 11/25/16 05:12 11:31 14:12 WBC RBC Hgb Hct MCV MCH MCHC RDW Plt Count Lymph % (Auto) [place] % (Auto) Lymph # [place] # Baso # Seg Neutrophils % Seg Neuts % (Manual) Lymphocytes % (Manual) Monocytes % (Manual) Eosinophils % (Manual) Basophils % (Manual) Nucleated RBC % Seg Neutrophils # Seg Neutrophils # Man Lymphocytes # (Manual) Monocytes # (Manual) Eosinophils # (Manual) PT INR Fibrinogen dRVVT Confirm Interp Factor V Activity POC ABG pH 7.487 H POC ABG pCO2 POC ABG pO2 153 H ABG pO2 ABG HCO3 ABG Base Excess ABG Hemoglobin Oxyhemoglobin Sodium Potassium Chloride Carbon Dioxide BUN Creatinine Glucose POC Glucose 131 H 140 H Lactic Acid Calcium Phosphorus Magnesium Direct Bilirubin AST ALT Alkaline Phosphatase Lactate Dehydrogenase Troponin T C-Reactive Protein Total Protein Albumin Prealbumin Triglycerides Cholesterol LDL Cholesterol Direct HDL Cholesterol Urine pH Urine WBC (Auto) Urine Creatinine Urine Total Protein Fluid Total Protein Vancomycin Trough Rheumatoid Factor Complement C4 Miscellaneous Test Crossmatch 11/25/16 11/26/16 11/26/16 17:23 00:09 05:13 WBC RBC 2.94 L Hgb 8.4 L Hct 24.6 L MCV MCH MCHC RDW 16.4 H Plt Count Lymph % (Auto) [place] % (Auto) 12.3 H Lymph # Ada # 1.1 H Baso # Seg Neutrophils % Seg Neuts % (Manual) Lymphocytes % (Manual) Monocytes % (Manual) Eosinophils % (Manual) Basophils % (Manual) Nucleated RBC % Seg Neutrophils # Seg Neutrophils # Man Lymphocytes # (Manual) Monocytes # (Manual) Eosinophils # (Manual) PT INR Fibrinogen dRVVT Confirm Interp Factor V Activity POC ABG pH POC ABG pCO2 POC ABG pO2 ABG pO2 ABG HCO3 ABG Base Excess ABG Hemoglobin Oxyhemoglobin Sodium Potassium Chloride Carbon Dioxide BUN Creatinine Glucose POC Glucose 146 H 112 H Lactic Acid Calcium Phosphorus Magnesium Direct Bilirubin AST ALT Alkaline Phosphatase Lactate Dehydrogenase Troponin T C-Reactive Protein Total Protein Albumin Prealbumin Triglycerides Cholesterol LDL Cholesterol Direct HDL Cholesterol Urine pH Urine WBC (Auto) Urine Creatinine Urine Total Protein Fluid Total Protein Vancomycin Trough Rheumatoid Factor Complement C4 Miscellaneous Test Crossmatch 11/26/16 11/26/16 11/26/16 05:13 05:28 11:53 WBC RBC Hgb Hct MCV MCH MCHC RDW Plt Count Lymph % (Auto) [place] % (Auto) Lymph # [place] # Baso # Seg Neutrophils % Seg Neuts % (Manual) Lymphocytes % (Manual) Monocytes % (Manual) Eosinophils % (Manual) Basophils % (Manual) Nucleated RBC % Seg Neutrophils # Seg Neutrophils # Man Lymphocytes # (Manual) Monocytes # (Manual) Eosinophils # (Manual) PT INR Fibrinogen dRVVT Confirm Interp Factor V Activity POC ABG pH POC ABG pCO2 POC ABG pO2 ABG pO2 ABG HCO3 ABG Base Excess ABG Hemoglobin Oxyhemoglobin Sodium Potassium Chloride 97.8 L Carbon Dioxide BUN 37 H Creatinine 2.0 H Glucose 109 H POC Glucose 117 H 111 H Lactic Acid Calcium 7.9 L Phosphorus 1.80 L D Magnesium Direct Bilirubin AST ALT Alkaline Phosphatase Lactate Dehydrogenase Troponin T C-Reactive Protein Total Protein Albumin Prealbumin Triglycerides Cholesterol LDL Cholesterol Direct HDL Cholesterol Urine pH Urine WBC (Auto) Urine Creatinine Urine Total Protein Fluid Total Protein Vancomycin Trough Rheumatoid Factor Complement C4 Miscellaneous Test Crossmatch 11/26/16 11/27/16 11/27/16 17:14 04:50 06:02 WBC RBC Hgb Hct MCV MCH MCHC RDW Plt Count Lymph % (Auto) [place] % (Auto) Lymph # [place] # Baso # Seg Neutrophils % Seg Neuts % (Manual) Lymphocytes % (Manual) Monocytes % (Manual) Eosinophils % (Manual) Basophils % (Manual) Nucleated RBC % Seg Neutrophils # Seg Neutrophils # Man Lymphocytes # (Manual) Monocytes # (Manual) Eosinophils # (Manual) PT INR Fibrinogen dRVVT Confirm Interp Factor V Activity POC ABG pH POC ABG pCO2 POC ABG pO2 ABG pO2 75.2 L ABG HCO3 26.4 H ABG Base Excess ABG Hemoglobin 7.6 L Oxyhemoglobin 94.8 L Sodium Potassium Chloride Carbon Dioxide BUN 49 H Creatinine 2.3 H Glucose POC Glucose 115 H Lactic Acid Calcium Phosphorus 1.50 L Magnesium Direct Bilirubin AST ALT Alkaline Phosphatase Lactate Dehydrogenase Troponin T C-Reactive Protein Total Protein Albumin Prealbumin Triglycerides Cholesterol LDL Cholesterol Direct HDL Cholesterol Urine pH Urine WBC (Auto) Urine Creatinine Urine Total Protein Fluid Total Protein Vancomycin Trough Rheumatoid Factor Complement C4 Miscellaneous Test Crossmatch 11/27/16 11/27/16 11/27/16 06:02 11:25 17:25 WBC 11.6 H RBC 2.75 L Hgb 7.6 L Hct 23.4 L MCV MCH MCHC RDW 16.5 H Plt Count Lymph % (Auto) [place] % (Auto) Lymph # [place] # Baso # Seg Neutrophils % Seg Neuts % (Manual) Lymphocytes % (Manual) Monocytes % (Manual) Eosinophils % (Manual) Basophils % (Manual) Nucleated RBC % Seg Neutrophils # Seg Neutrophils # Man Lymphocytes # (Manual) Monocytes # (Manual) Eosinophils # (Manual) PT INR Fibrinogen dRVVT Confirm Interp Factor V Activity POC ABG pH POC ABG pCO2 POC ABG pO2 ABG pO2 ABG HCO3 ABG Base Excess ABG Hemoglobin Oxyhemoglobin Sodium Potassium Chloride Carbon Dioxide BUN Creatinine Glucose POC Glucose 114 H 126 H Lactic Acid Calcium Phosphorus Magnesium Direct Bilirubin AST ALT Alkaline Phosphatase Lactate Dehydrogenase Troponin T C-Reactive Protein Total Protein Albumin Prealbumin Triglycerides Cholesterol LDL Cholesterol Direct HDL Cholesterol Urine pH Urine WBC (Auto) Urine Creatinine Urine Total Protein Fluid Total Protein Vancomycin Trough Rheumatoid Factor Complement C4 Miscellaneous Test Crossmatch 11/28/16 11/28/16 11/28/16 04:45 05:33 05:44 WBC RBC Hgb Hct MCV MCH MCHC RDW Plt Count Lymph % (Auto) [place] % (Auto) Lymph # [place] # Baso # Seg Neutrophils % Seg Neuts % (Manual) Lymphocytes % (Manual) Monocytes % (Manual) Eosinophils % (Manual) Basophils % (Manual) Nucleated RBC % Seg Neutrophils # Seg Neutrophils # Man Lymphocytes # (Manual) Monocytes # (Manual) Eosinophils # (Manual) PT INR Fibrinogen dRVVT Confirm Interp Factor V Activity POC ABG pH POC ABG pCO2 POC ABG pO2 ABG pO2 99.3 H ABG HCO3 ABG Base Excess ABG Hemoglobin 8.3 L Oxyhemoglobin Sodium Potassium Chloride Carbon Dioxide BUN 63 H Creatinine 2.4 H Glucose 102 H POC Glucose 108 H Lactic Acid Calcium Phosphorus 1.80 L Magnesium Direct Bilirubin AST ALT Alkaline Phosphatase Lactate Dehydrogenase Troponin T C-Reactive Protein Total Protein Albumin Prealbumin Triglycerides Cholesterol LDL Cholesterol Direct HDL Cholesterol Urine pH Urine WBC (Auto) Urine Creatinine Urine Total Protein Fluid Total Protein Vancomycin Trough Rheumatoid Factor Complement C4 Miscellaneous Test Crossmatch 11/28/16 11/28/16 11/28/16 12:31 16:09 23:46 WBC RBC Hgb Hct MCV MCH MCHC RDW Plt Count Lymph % (Auto) [place] % (Auto) Lymph # [place] # Baso # Seg Neutrophils % Seg Neuts % (Manual) Lymphocytes % (Manual) Monocytes % (Manual) Eosinophils % (Manual) Basophils % (Manual) Nucleated RBC % Seg Neutrophils # Seg Neutrophils # Man Lymphocytes # (Manual) Monocytes # (Manual) Eosinophils # (Manual) PT INR Fibrinogen dRVVT Confirm Interp Factor V Activity POC ABG pH POC ABG pCO2 POC ABG pO2 ABG pO2 ABG HCO3 ABG Base Excess ABG Hemoglobin Oxyhemoglobin Sodium Potassium Chloride Carbon Dioxide BUN Creatinine Glucose POC Glucose 126 H 111 H 119 H Lactic Acid Calcium Phosphorus Magnesium Direct Bilirubin AST ALT Alkaline Phosphatase Lactate Dehydrogenase Troponin T C-Reactive Protein Total Protein Albumin Prealbumin Triglycerides Cholesterol LDL Cholesterol Direct HDL Cholesterol Urine pH Urine WBC (Auto) Urine Creatinine Urine Total Protein Fluid Total Protein Vancomycin Trough Rheumatoid Factor Complement C4 Miscellaneous Test Crossmatch 11/29/16 11/29/16 11/29/16 03:33 04:52 05:10 WBC RBC Hgb Hct MCV MCH MCHC RDW Plt Count Lymph % (Auto) [place] % (Auto) Lymph # [place] # Baso # Seg Neutrophils % Seg Neuts % (Manual) Lymphocytes % (Manual) Monocytes % (Manual) Eosinophils % (Manual) Basophils % (Manual) Nucleated RBC % Seg Neutrophils # Seg Neutrophils # Man Lymphocytes # (Manual) Monocytes # (Manual) Eosinophils # (Manual) PT INR Fibrinogen dRVVT Confirm Interp Factor V Activity POC ABG pH POC ABG pCO2 POC ABG pO2 ABG pO2 ABG HCO3 ABG Base Excess ABG Hemoglobin 7.0 L Oxyhemoglobin 94.9 L Sodium Potassium Chloride Carbon Dioxide BUN 73 H Creatinine 2.7 H Glucose POC Glucose 108 H Lactic Acid Calcium Phosphorus Magnesium Direct Bilirubin AST ALT Alkaline Phosphatase Lactate Dehydrogenase Troponin T C-Reactive Protein Total Protein Albumin Prealbumin Triglycerides Cholesterol LDL Cholesterol Direct HDL Cholesterol Urine pH Urine WBC (Auto) Urine Creatinine Urine Total Protein Fluid Total Protein Vancomycin Trough Rheumatoid Factor Complement C4 Miscellaneous Test Crossmatch 11/29/16 11/29/16 11/29/16 12:16 18:05 23:46 WBC RBC Hgb Hct MCV MCH MCHC RDW Plt Count Lymph % (Auto) [place] % (Auto) Lymph # [place] # Baso # Seg Neutrophils % Seg Neuts % (Manual) Lymphocytes % (Manual) Monocytes % (Manual) Eosinophils % (Manual) Basophils % (Manual) Nucleated RBC % Seg Neutrophils # Seg Neutrophils # Man Lymphocytes # (Manual) Monocytes # (Manual) Eosinophils # (Manual) PT INR Fibrinogen dRVVT Confirm Interp Factor V Activity POC ABG pH POC ABG pCO2 POC ABG pO2 ABG pO2 ABG HCO3 ABG Base Excess ABG Hemoglobin Oxyhemoglobin Sodium Potassium Chloride Carbon Dioxide BUN Creatinine Glucose POC Glucose 133 H 146 H 141 H Lactic Acid Calcium Phosphorus Magnesium Direct Bilirubin AST ALT Alkaline Phosphatase Lactate Dehydrogenase Troponin T C-Reactive Protein Total Protein Albumin Prealbumin Triglycerides Cholesterol LDL Cholesterol Direct HDL Cholesterol Urine pH Urine WBC (Auto) Urine Creatinine Urine Total Protein Fluid Total Protein Vancomycin Trough Rheumatoid Factor Complement C4 Miscellaneous Test Crossmatch 11/30/16 11/30/16 11/30/16 04:17 04:17 04:32 WBC 12.0 H RBC 2.80 L Hgb 7.8 L Hct 23.6 L MCV MCH MCHC RDW 16.6 H Plt Count Lymph % (Auto) [place] % (Auto) 11.3 H Lymph # Ada # 1.4 H Baso # Seg Neutrophils % Seg Neuts % (Manual) Lymphocytes % (Manual) Monocytes % (Manual) Eosinophils % (Manual) Basophils % (Manual) Nucleated RBC % Seg Neutrophils # 8.2 H Seg Neutrophils # Man Lymphocytes # (Manual) Monocytes # (Manual) Eosinophils # (Manual) PT INR Fibrinogen dRVVT Confirm Interp Factor V Activity POC ABG pH POC ABG pCO2 POC ABG pO2 ABG pO2 ABG HCO3 ABG Base Excess ABG Hemoglobin Oxyhemoglobin Sodium 169 H* D Potassium 5.1 H Chloride 121.5 H Carbon Dioxide BUN 34 H Creatinine 1.3 H D Glucose 133 H POC Glucose 131 H Lactic Acid Calcium 10.3 H Phosphorus Magnesium Direct Bilirubin AST ALT Alkaline Phosphatase Lactate Dehydrogenase Troponin T C-Reactive Protein Total Protein Albumin Prealbumin Triglycerides Cholesterol LDL Cholesterol Direct HDL Cholesterol Urine pH Urine WBC (Auto) Urine Creatinine Urine Total Protein Fluid Total Protein Vancomycin Trough Rheumatoid Factor Complement C4 Miscellaneous Test Crossmatch 11/30/16 11/30/16 11/30/16 05:45 11:10 17:26 WBC RBC Hgb Hct MCV MCH MCHC RDW Plt Count Lymph % (Auto) [place] % (Auto) Lymph # [place] # Baso # Seg Neutrophils % Seg Neuts % (Manual) Lymphocytes % (Manual) Monocytes % (Manual) Eosinophils % (Manual) Basophils % (Manual) Nucleated RBC % Seg Neutrophils # Seg Neutrophils # Man Lymphocytes # (Manual) Monocytes # (Manual) Eosinophils # (Manual) PT INR Fibrinogen dRVVT Confirm Interp Factor V Activity POC ABG pH POC ABG pCO2 POC ABG pO2 ABG pO2 ABG HCO3 ABG Base Excess ABG Hemoglobin Oxyhemoglobin Sodium Potassium Chloride Carbon Dioxide BUN 45 H Creatinine 1.6 H Glucose 131 H POC Glucose 146 H 134 H Lactic Acid Calcium Phosphorus Magnesium Direct Bilirubin AST ALT Alkaline Phosphatase Lactate Dehydrogenase Troponin T C-Reactive Protein Total Protein Albumin Prealbumin Triglycerides Cholesterol LDL Cholesterol Direct HDL Cholesterol Urine pH Urine WBC (Auto) Urine Creatinine Urine Total Protein Fluid Total Protein Vancomycin Trough Rheumatoid Factor Complement C4 Miscellaneous Test Crossmatch 11/30/16 12/01/16 12/01/16 23:35 00:06 03:35 WBC RBC Hgb Hct MCV MCH MCHC RDW Plt Count Lymph % (Auto) [place] % (Auto) Lymph # [place] # Baso # Seg Neutrophils % Seg Neuts % (Manual) Lymphocytes % (Manual) Monocytes % (Manual) Eosinophils % (Manual) Basophils % (Manual) Nucleated RBC % Seg Neutrophils # Seg Neutrophils # Man Lymphocytes # (Manual) Monocytes # (Manual) Eosinophils # (Manual) PT INR Fibrinogen dRVVT Confirm Interp Factor V Activity POC ABG pH POC ABG pCO2 POC ABG pO2 ABG pO2 ABG HCO3 ABG Base Excess ABG Hemoglobin 6.9 L Oxyhemoglobin Sodium Potassium Chloride Carbon Dioxide BUN 58 H Creatinine 1.8 H Glucose 146 H POC Glucose 151 H Lactic Acid Calcium Phosphorus Magnesium Direct Bilirubin AST ALT Alkaline Phosphatase Lactate Dehydrogenase Troponin T C-Reactive Protein Total Protein Albumin Prealbumin Triglycerides Cholesterol LDL Cholesterol Direct HDL Cholesterol Urine pH Urine WBC (Auto) Urine Creatinine Urine Total Protein Fluid Total Protein Vancomycin Trough Rheumatoid Factor Complement C4 Miscellaneous Test Crossmatch 12/01/16 12/01/16 12/01/16 03:35 05:47 11:52 WBC 12.3 H RBC 2.82 L Hgb 7.8 L Hct 23.7 L MCV MCH MCHC RDW 16.7 H Plt Count Lymph % (Auto) [place] % (Auto) 9.8 H Lymph # Ada # 1.2 H Baso # Seg Neutrophils % Seg Neuts % (Manual) Lymphocytes % (Manual) Monocytes % (Manual) Eosinophils % (Manual) Basophils % (Manual) Nucleated RBC % Seg Neutrophils # 8.4 H Seg Neutrophils # Man Lymphocytes # (Manual) Monocytes # (Manual) Eosinophils # (Manual) PT INR Fibrinogen dRVVT Confirm Interp Factor V Activity POC ABG pH POC ABG pCO2 POC ABG pO2 ABG pO2 ABG HCO3 ABG Base Excess ABG Hemoglobin Oxyhemoglobin Sodium Potassium Chloride Carbon Dioxide BUN Creatinine Glucose POC Glucose 152 H 152 H Lactic Acid Calcium Phosphorus Magnesium Direct Bilirubin AST ALT Alkaline Phosphatase Lactate Dehydrogenase Troponin T C-Reactive Protein Total Protein Albumin Prealbumin Triglycerides Cholesterol LDL Cholesterol Direct HDL Cholesterol Urine pH Urine WBC (Auto) Urine Creatinine Urine Total Protein Fluid Total Protein Vancomycin Trough Rheumatoid Factor Complement C4 Miscellaneous Test Crossmatch 12/01/16 12/01/16 12/02/16 17:40 23:41 05:00 WBC RBC Hgb Hct MCV MCH MCHC RDW Plt Count Lymph % (Auto) [place] % (Auto) Lymph # [place] # Baso # Seg Neutrophils % Seg Neuts % (Manual) Lymphocytes % (Manual) Monocytes % (Manual) Eosinophils % (Manual) Basophils % (Manual) Nucleated RBC % Seg Neutrophils # Seg Neutrophils # Man Lymphocytes # (Manual) Monocytes # (Manual) Eosinophils # (Manual) PT INR Fibrinogen dRVVT Confirm Interp Factor V Activity POC ABG pH POC ABG pCO2 POC ABG pO2 ABG pO2 ABG HCO3 ABG Base Excess ABG Hemoglobin Oxyhemoglobin Sodium Potassium Chloride Carbon Dioxide BUN 45 H Creatinine Glucose 115 H POC Glucose 140 H 144 H Lactic Acid Calcium Phosphorus Magnesium Direct Bilirubin AST ALT Alkaline Phosphatase Lactate Dehydrogenase Troponin T C-Reactive Protein Total Protein Albumin Prealbumin Triglycerides Cholesterol LDL Cholesterol Direct HDL Cholesterol Urine pH Urine WBC (Auto) Urine Creatinine Urine Total Protein Fluid Total Protein Vancomycin Trough Rheumatoid Factor Complement C4 Miscellaneous Test Crossmatch 12/02/16 12/02/16 12/02/16 05:31 11:20 17:38 WBC RBC Hgb Hct MCV MCH MCHC RDW Plt Count Lymph % (Auto) [place] % (Auto) Lymph # [place] # Baso # Seg Neutrophils % Seg Neuts % (Manual) Lymphocytes % (Manual) Monocytes % (Manual) Eosinophils % (Manual) Basophils % (Manual) Nucleated RBC % Seg Neutrophils # Seg Neutrophils # Man Lymphocytes # (Manual) Monocytes # (Manual) Eosinophils # (Manual) PT INR Fibrinogen dRVVT Confirm Interp Factor V Activity POC ABG pH POC ABG pCO2 POC ABG pO2 ABG pO2 ABG HCO3 ABG Base Excess ABG Hemoglobin Oxyhemoglobin Sodium Potassium Chloride Carbon Dioxide BUN Creatinine Glucose POC Glucose 136 H 177 H 139 H Lactic Acid Calcium Phosphorus Magnesium Direct Bilirubin AST ALT Alkaline Phosphatase Lactate Dehydrogenase Troponin T C-Reactive Protein Total Protein Albumin Prealbumin Triglycerides Cholesterol LDL Cholesterol Direct HDL Cholesterol Urine pH Urine WBC (Auto) Urine Creatinine Urine Total Protein Fluid Total Protein Vancomycin Trough Rheumatoid Factor Complement C4 Miscellaneous Test Crossmatch 12/02/16 12/03/16 12/03/16 23:43 04:00 04:00 WBC 20.4 H RBC 2.74 L Hgb 7.4 L Hct 23.6 L MCV MCH 27 L MCHC RDW 17.1 H Plt Count Lymph % (Auto) [place] % (Auto) Lymph # [place] # Baso # Seg Neutrophils % Seg Neuts % (Manual) 31.0 L Lymphocytes % (Manual) Monocytes % (Manual) Eosinophils % (Manual) Basophils % (Manual) Nucleated RBC % Seg Neutrophils # Seg Neutrophils # Man Lymphocytes # (Manual) Monocytes # (Manual) Eosinophils # (Manual) PT INR Fibrinogen dRVVT Confirm Interp Factor V Activity POC ABG pH POC ABG pCO2 POC ABG pO2 ABG pO2 ABG HCO3 ABG Base Excess ABG Hemoglobin Oxyhemoglobin Sodium Potassium Chloride Carbon Dioxide BUN 61 H Creatinine 1.6 H Glucose 119 H POC Glucose 158 H Lactic Acid Calcium Phosphorus Magnesium Direct Bilirubin AST ALT Alkaline Phosphatase Lactate Dehydrogenase Troponin T C-Reactive Protein Total Protein Albumin Prealbumin Triglycerides Cholesterol LDL Cholesterol Direct HDL Cholesterol Urine pH Urine WBC (Auto) Urine Creatinine Urine Total Protein Fluid Total Protein Vancomycin Trough Rheumatoid Factor Complement C4 Miscellaneous Test Crossmatch 12/03/16 12/03/16 12/03/16 05:02 12:11 18:16 WBC RBC Hgb Hct MCV MCH MCHC RDW Plt Count Lymph % (Auto) [place] % (Auto) Lymph # [place] # Baso # Seg Neutrophils % Seg Neuts % (Manual) Lymphocytes % (Manual) Monocytes % (Manual) Eosinophils % (Manual) Basophils % (Manual) Nucleated RBC % Seg Neutrophils # Seg Neutrophils # Man Lymphocytes # (Manual) Monocytes # (Manual) Eosinophils # (Manual) PT INR Fibrinogen dRVVT Confirm Interp Factor V Activity POC ABG pH POC ABG pCO2 POC ABG pO2 ABG pO2 ABG HCO3 ABG Base Excess ABG Hemoglobin Oxyhemoglobin Sodium Potassium Chloride Carbon Dioxide BUN Creatinine Glucose POC Glucose 146 H 157 H 124 H Lactic Acid Calcium Phosphorus Magnesium Direct Bilirubin AST ALT Alkaline Phosphatase Lactate Dehydrogenase Troponin T C-Reactive Protein Total Protein Albumin Prealbumin Triglycerides Cholesterol LDL Cholesterol Direct HDL Cholesterol Urine pH Urine WBC (Auto) Urine Creatinine Urine Total Protein Fluid Total Protein Vancomycin Trough Rheumatoid Factor Complement C4 Miscellaneous Test Crossmatch 12/03/16 12/04/16 12/04/16 23:41 04:00 04:45 WBC RBC Hgb Hct MCV MCH MCHC RDW Plt Count Lymph % (Auto) [place] % (Auto) Lymph # [place] # Baso # Seg Neutrophils % Seg Neuts % (Manual) Lymphocytes % (Manual) Monocytes % (Manual) Eosinophils % (Manual) Basophils % (Manual) Nucleated RBC % Seg Neutrophils # Seg Neutrophils # Man Lymphocytes # (Manual) Monocytes # (Manual) Eosinophils # (Manual) PT INR Fibrinogen dRVVT Confirm Interp Factor V Activity POC ABG pH POC ABG pCO2 POC ABG pO2 ABG pO2 ABG HCO3 ABG Base Excess ABG Hemoglobin Oxyhemoglobin Sodium Potassium Chloride Carbon Dioxide BUN 76 H Creatinine 1.6 H Glucose POC Glucose 130 H 136 H Lactic Acid Calcium Phosphorus Magnesium Direct Bilirubin AST ALT Alkaline Phosphatase 155 H Lactate Dehydrogenase Troponin T C-Reactive Protein Total Protein 5.5 L Albumin 1.5 L Prealbumin Triglycerides Cholesterol LDL Cholesterol Direct HDL Cholesterol Urine pH Urine WBC (Auto) Urine Creatinine Urine Total Protein Fluid Total Protein Vancomycin Trough Rheumatoid Factor Complement C4 Miscellaneous Test Crossmatch 12/04/16 12/04/16 12/05/16 12:08 17:23 00:10 WBC RBC Hgb Hct MCV MCH MCHC RDW Plt Count Lymph % (Auto) [place] % (Auto) Lymph # [place] # Baso # Seg Neutrophils % Seg Neuts % (Manual) Lymphocytes % (Manual) Monocytes % (Manual) Eosinophils % (Manual) Basophils % (Manual) Nucleated RBC % Seg Neutrophils # Seg Neutrophils # Man Lymphocytes # (Manual) Monocytes # (Manual) Eosinophils # (Manual) PT INR Fibrinogen dRVVT Confirm Interp Factor V Activity POC ABG pH POC ABG pCO2 POC ABG pO2 ABG pO2 ABG HCO3 ABG Base Excess ABG Hemoglobin Oxyhemoglobin Sodium Potassium Chloride Carbon Dioxide BUN Creatinine Glucose POC Glucose 114 H 129 H 124 H Lactic Acid Calcium Phosphorus Magnesium Direct Bilirubin AST ALT Alkaline Phosphatase Lactate Dehydrogenase Troponin T C-Reactive Protein Total Protein Albumin Prealbumin Triglycerides Cholesterol LDL Cholesterol Direct HDL Cholesterol Urine pH Urine WBC (Auto) Urine Creatinine Urine Total Protein Fluid Total Protein Vancomycin Trough Rheumatoid Factor Complement C4 Miscellaneous Test Crossmatch 12/05/16 12/05/16 12/05/16 05:00 05:00 05:18 WBC RBC Hgb Hct MCV MCH MCHC RDW Plt Count Lymph % (Auto) [place] % (Auto) Lymph # [place] # Baso # Seg Neutrophils % Seg Neuts % (Manual) Lymphocytes % (Manual) Monocytes % (Manual) Eosinophils % (Manual) Basophils % (Manual) Nucleated RBC % Seg Neutrophils # Seg Neutrophils # Man Lymphocytes # (Manual) Monocytes # (Manual) Eosinophils # (Manual) PT INR Fibrinogen dRVVT Confirm Interp Factor V Activity POC ABG pH POC ABG pCO2 POC ABG pO2 ABG pO2 ABG HCO3 ABG Base Excess ABG Hemoglobin Oxyhemoglobin Sodium Potassium Chloride Carbon Dioxide 21 L BUN 85 H Creatinine 1.9 H Glucose 131 H POC Glucose 154 H Lactic Acid Calcium Phosphorus Magnesium Direct Bilirubin AST ALT Alkaline Phosphatase Lactate Dehydrogenase Troponin T C-Reactive Protein 19.30 H Total Protein Albumin Prealbumin Triglycerides Cholesterol LDL Cholesterol Direct HDL Cholesterol Urine pH Urine WBC (Auto) Urine Creatinine Urine Total Protein Fluid Total Protein Vancomycin Trough Rheumatoid Factor Complement C4 Miscellaneous Test Crossmatch 12/05/16 12/05/16 12/05/16 11:43 17:46 23:25 WBC RBC Hgb Hct MCV MCH MCHC RDW Plt Count Lymph % (Auto) [place] % (Auto) Lymph # [place] # Baso # Seg Neutrophils % Seg Neuts % (Manual) Lymphocytes % (Manual) Monocytes % (Manual) Eosinophils % (Manual) Basophils % (Manual) Nucleated RBC % Seg Neutrophils # Seg Neutrophils # Man Lymphocytes # (Manual) Monocytes # (Manual) Eosinophils # (Manual) PT INR Fibrinogen dRVVT Confirm Interp Factor V Activity POC ABG pH POC ABG pCO2 POC ABG pO2 ABG pO2 ABG HCO3 ABG Base Excess ABG Hemoglobin Oxyhemoglobin Sodium Potassium Chloride Carbon Dioxide BUN Creatinine Glucose POC Glucose 117 H 113 H 111 H Lactic Acid Calcium Phosphorus Magnesium Direct Bilirubin AST ALT Alkaline Phosphatase Lactate Dehydrogenase Troponin T C-Reactive Protein Total Protein Albumin Prealbumin Triglycerides Cholesterol LDL Cholesterol Direct HDL Cholesterol Urine pH Urine WBC (Auto) Urine Creatinine Urine Total Protein Fluid Total Protein Vancomycin Trough Rheumatoid Factor Complement C4 Miscellaneous Test Crossmatch 12/05/16 12/06/16 12/06/16 Unknown 04:58 06:00 WBC RBC Hgb Hct MCV MCH MCHC RDW Plt Count Lymph % (Auto) [place] % (Auto) Lymph # [place] # Baso # Seg Neutrophils % Seg Neuts % (Manual) Lymphocytes % (Manual) Monocytes % (Manual) Eosinophils % (Manual) Basophils % (Manual) Nucleated RBC % Seg Neutrophils # Seg Neutrophils # Man Lymphocytes # (Manual) Monocytes # (Manual) Eosinophils # (Manual) PT INR Fibrinogen dRVVT Confirm Interp Factor V Activity POC ABG pH POC ABG pCO2 POC ABG pO2 ABG pO2 75.2 L ABG HCO3 ABG Base Excess -3.4 L ABG Hemoglobin 7.4 L Oxyhemoglobin 94.5 L Sodium Potassium Chloride Carbon Dioxide 20 L BUN 99 H Creatinine 2.1 H Glucose 126 H POC Glucose 145 H Lactic Acid Calcium Phosphorus 4.80 H Magnesium Direct Bilirubin AST ALT Alkaline Phosphatase Lactate Dehydrogenase Troponin T C-Reactive Protein Total Protein Albumin Prealbumin Triglycerides Cholesterol LDL Cholesterol Direct HDL Cholesterol Urine pH Urine WBC (Auto) Urine Creatinine Urine Total Protein Fluid Total Protein Vancomycin Trough Rheumatoid Factor Complement C4 Miscellaneous Test Crossmatch 12/06/16 12/06/16 12/06/16 06:46 11:54 17:55 WBC RBC Hgb 8.3 L Hct 26.4 L MCV MCH MCHC RDW Plt Count Lymph % (Auto) Ada % (Auto) Lymph # Ada # Baso # Seg Neutrophils % Seg Neuts % (Manual) Lymphocytes % (Manual) Monocytes % (Manual) Eosinophils % (Manual) Basophils % (Manual) Nucleated RBC % Seg Neutrophils # Seg Neutrophils # Man Lymphocytes # (Manual) Monocytes # (Manual) Eosinophils # (Manual) PT INR Fibrinogen dRVVT Confirm Interp Factor V Activity POC ABG pH POC ABG pCO2 POC ABG pO2 ABG pO2 ABG HCO3 ABG Base Excess ABG Hemoglobin Oxyhemoglobin Sodium Potassium Chloride Carbon Dioxide BUN Creatinine Glucose POC Glucose 126 H 157 H Lactic Acid Calcium Phosphorus Magnesium Direct Bilirubin AST ALT Alkaline Phosphatase Lactate Dehydrogenase Troponin T C-Reactive Protein Total Protein Albumin Prealbumin Triglycerides Cholesterol LDL Cholesterol Direct HDL Cholesterol Urine pH Urine WBC (Auto) Urine Creatinine Urine Total Protein Fluid Total Protein Vancomycin Trough Rheumatoid Factor Complement C4 Miscellaneous Test Crossmatch 12/06/16 12/07/16 12/07/16 23:59 05:34 06:30 WBC RBC Hgb Hct MCV MCH MCHC RDW Plt Count Lymph % (Auto) Ada % (Auto) Lymph # Ada # Baso # Seg Neutrophils % Seg Neuts % (Manual) Lymphocytes % (Manual) Monocytes % (Manual) Eosinophils % (Manual) Basophils % (Manual) Nucleated RBC % Seg Neutrophils # Seg Neutrophils # Man Lymphocytes # (Manual) Monocytes # (Manual) Eosinophils # (Manual) PT INR Fibrinogen dRVVT Confirm Interp Factor V Activity POC ABG pH POC ABG pCO2 POC ABG pO2 ABG pO2 ABG HCO3 ABG Base Excess ABG Hemoglobin Oxyhemoglobin Sodium Potassium Chloride Carbon Dioxide BUN 67 H Creatinine 1.4 H Glucose 126 H POC Glucose 129 H 129 H Lactic Acid Calcium Phosphorus Magnesium Direct Bilirubin AST ALT Alkaline Phosphatase Lactate Dehydrogenase Troponin T C-Reactive Protein Total Protein Albumin Prealbumin Triglycerides Cholesterol LDL Cholesterol Direct HDL Cholesterol Urine pH Urine WBC (Auto) Urine Creatinine Urine Total Protein Fluid Total Protein Vancomycin Trough Rheumatoid Factor Complement C4 Miscellaneous Test Crossmatch 12/07/16 12/07/16 12/07/16 06:30 08:00 09:45 WBC 18.8 H RBC 2.52 L Hgb 6.9 L 6.8 L Hct 21.2 L 21.1 L MCV MCH 27 L MCHC RDW 18.0 H Plt Count Lymph % (Auto) Ada % (Auto) 9.9 H Lymph # Ada # 1.9 H Baso # Seg Neutrophils % 71.8 H Seg Neuts % (Manual) Lymphocytes % (Manual) Monocytes % (Manual) Eosinophils % (Manual) Basophils % (Manual) Nucleated RBC % Seg Neutrophils # 13.5 H Seg Neutrophils # Man Lymphocytes # (Manual) Monocytes # (Manual) Eosinophils # (Manual) PT INR Fibrinogen dRVVT Confirm Interp Factor V Activity POC ABG pH POC ABG pCO2 POC ABG pO2 ABG pO2 ABG HCO3 ABG Base Excess ABG Hemoglobin Oxyhemoglobin Sodium Potassium Chloride Carbon Dioxide BUN Creatinine Glucose POC Glucose Lactic Acid Calcium Phosphorus Magnesium Direct Bilirubin AST ALT Alkaline Phosphatase Lactate Dehydrogenase Troponin T C-Reactive Protein Total Protein Albumin Prealbumin Triglycerides Cholesterol LDL Cholesterol Direct HDL Cholesterol Urine pH Urine WBC (Auto) Urine Creatinine Urine Total Protein Fluid Total Protein Vancomycin Trough Rheumatoid Factor Complement C4 Miscellaneous Test Crossmatch See Detail 12/07/16 12/07/16 12/07/16 11:44 18:19 23:59 WBC RBC Hgb Hct MCV MCH MCHC RDW Plt Count Lymph % (Auto) Ada % (Auto) Lymph # Ada # Baso # Seg Neutrophils % Seg Neuts % (Manual) Lymphocytes % (Manual) Monocytes % (Manual) Eosinophils % (Manual) Basophils % (Manual) Nucleated RBC % Seg Neutrophils # Seg Neutrophils # Man Lymphocytes # (Manual) Monocytes # (Manual) Eosinophils # (Manual) PT INR Fibrinogen dRVVT Confirm Interp Factor V Activity POC ABG pH POC ABG pCO2 POC ABG pO2 ABG pO2 ABG HCO3 ABG Base Excess ABG Hemoglobin Oxyhemoglobin Sodium Potassium Chloride Carbon Dioxide BUN Creatinine Glucose POC Glucose 137 H 138 H 133 H Lactic Acid Calcium Phosphorus Magnesium Direct Bilirubin AST ALT Alkaline Phosphatase Lactate Dehydrogenase Troponin T C-Reactive Protein Total Protein Albumin Prealbumin Triglycerides Cholesterol LDL Cholesterol Direct HDL Cholesterol Urine pH Urine WBC (Auto) Urine Creatinine Urine Total Protein Fluid Total Protein Vancomycin Trough Rheumatoid Factor Complement C4 Miscellaneous Test Crossmatch 12/08/16 12/08/16 12/08/16 05:25 05:30 05:30 WBC 23.8 H RBC 2.88 L Hgb 8.1 L Hct 24.3 L MCV MCH MCHC RDW 16.7 H Plt Count Lymph % (Auto) Ada % (Auto) Lymph # Ada # Baso # Seg Neutrophils % Seg Neuts % (Manual) 76.0 H Lymphocytes % (Manual) 9.0 L Monocytes % (Manual) 9.0 H Eosinophils % (Manual) Basophils % (Manual) Nucleated RBC % Seg Neutrophils # Seg Neutrophils # Man 18.1 H Lymphocytes # (Manual) Monocytes # (Manual) 2.1 H Eosinophils # (Manual) PT INR Fibrinogen dRVVT Confirm Interp Factor V Activity POC ABG pH POC ABG pCO2 POC ABG pO2 ABG pO2 ABG HCO3 ABG Base Excess ABG Hemoglobin Oxyhemoglobin Sodium Potassium Chloride Carbon Dioxide 21 L BUN 76 H Creatinine 1.6 H Glucose 133 H POC Glucose 177 H Lactic Acid Calcium Phosphorus Magnesium Direct Bilirubin AST ALT Alkaline Phosphatase Lactate Dehydrogenase Troponin T C-Reactive Protein Total Protein Albumin Prealbumin Triglycerides Cholesterol LDL Cholesterol Direct HDL Cholesterol Urine pH Urine WBC (Auto) Urine Creatinine Urine Total Protein Fluid Total Protein Vancomycin Trough Rheumatoid Factor Complement C4 Miscellaneous Test Crossmatch 12/08/16 12/08/16 12/09/16 11:45 18:00 00:00 WBC RBC Hgb Hct MCV MCH MCHC RDW Plt Count Lymph % (Auto) [place] % (Auto) Lymph # [place] # Baso # Seg Neutrophils % Seg Neuts % (Manual) Lymphocytes % (Manual) Monocytes % (Manual) Eosinophils % (Manual) Basophils % (Manual) Nucleated RBC % Seg Neutrophils # Seg Neutrophils # Man Lymphocytes # (Manual) Monocytes # (Manual) Eosinophils # (Manual) PT INR Fibrinogen dRVVT Confirm Interp Factor V Activity POC ABG pH POC ABG pCO2 POC ABG pO2 ABG pO2 ABG HCO3 ABG Base Excess ABG Hemoglobin Oxyhemoglobin Sodium Potassium Chloride Carbon Dioxide BUN Creatinine Glucose POC Glucose 163 H 123 H 137 H Lactic Acid Calcium Phosphorus Magnesium Direct Bilirubin AST ALT Alkaline Phosphatase Lactate Dehydrogenase Troponin T C-Reactive Protein Total Protein Albumin Prealbumin Triglycerides Cholesterol LDL Cholesterol Direct HDL Cholesterol Urine pH Urine WBC (Auto) Urine Creatinine Urine Total Protein Fluid Total Protein Vancomycin Trough Rheumatoid Factor Complement C4 Miscellaneous Test Crossmatch 12/09/16 12/09/16 12/09/16 05:34 06:00 06:00 WBC 15.5 H RBC 2.87 L Hgb 8.0 L Hct 24.2 L MCV MCH MCHC RDW 17.2 H Plt Count Lymph % (Auto) Ada % (Auto) 11.6 H Lymph # Ada # 1.8 H Baso # Seg Neutrophils % 70.8 H Seg Neuts % (Manual) Lymphocytes % (Manual) Monocytes % (Manual) Eosinophils % (Manual) Basophils % (Manual) Nucleated RBC % Seg Neutrophils # 11.0 H Seg Neutrophils # Man Lymphocytes # (Manual) Monocytes # (Manual) Eosinophils # (Manual) PT INR Fibrinogen dRVVT Confirm Interp Factor V Activity POC ABG pH POC ABG pCO2 POC ABG pO2 ABG pO2 ABG HCO3 ABG Base Excess ABG Hemoglobin Oxyhemoglobin Sodium Potassium Chloride Carbon Dioxide BUN 51 H Creatinine Glucose 117 H POC Glucose 136 H Lactic Acid Calcium Phosphorus Magnesium Direct Bilirubin AST ALT Alkaline Phosphatase Lactate Dehydrogenase Troponin T C-Reactive Protein Total Protein Albumin Prealbumin Triglycerides Cholesterol LDL Cholesterol Direct HDL Cholesterol Urine pH Urine WBC (Auto) Urine Creatinine Urine Total Protein Fluid Total Protein Vancomycin Trough Rheumatoid Factor Complement C4 Miscellaneous Test Crossmatch 12/09/16 12/09/16 12/09/16 12:29 17:52 23:10 WBC RBC Hgb Hct MCV MCH MCHC RDW Plt Count Lymph % (Auto) [place] % (Auto) Lymph # Ada # Baso # Seg Neutrophils % Seg Neuts % (Manual) Lymphocytes % (Manual) Monocytes % (Manual) Eosinophils % (Manual) Basophils % (Manual) Nucleated RBC % Seg Neutrophils # Seg Neutrophils # Man Lymphocytes # (Manual) Monocytes # (Manual) Eosinophils # (Manual) PT INR Fibrinogen dRVVT Confirm Interp Factor V Activity POC ABG pH POC ABG pCO2 POC ABG pO2 ABG pO2 ABG HCO3 ABG Base Excess ABG Hemoglobin Oxyhemoglobin Sodium Potassium Chloride Carbon Dioxide BUN Creatinine Glucose POC Glucose 139 H 140 H 129 H Lactic Acid Calcium Phosphorus Magnesium Direct Bilirubin AST ALT Alkaline Phosphatase Lactate Dehydrogenase Troponin T C-Reactive Protein Total Protein Albumin Prealbumin Triglycerides Cholesterol LDL Cholesterol Direct HDL Cholesterol Urine pH Urine WBC (Auto) Urine Creatinine Urine Total Protein Fluid Total Protein Vancomycin Trough Rheumatoid Factor Complement C4 Miscellaneous Test Crossmatch 12/10/16 12/10/16 12/10/16 05:00 05:00 06:54 WBC 15.7 H RBC 2.87 L Hgb 8.2 L Hct 24.4 L MCV MCH MCHC RDW 17.2 H Plt Count Lymph % (Auto) Ada % (Auto) 8.3 H Lymph # Ada # 1.3 H Baso # Seg Neutrophils % 72.8 H Seg Neuts % (Manual) Lymphocytes % (Manual) Monocytes % (Manual) Eosinophils % (Manual) Basophils % (Manual) Nucleated RBC % Seg Neutrophils # 11.4 H Seg Neutrophils # Man Lymphocytes # (Manual) Monocytes # (Manual) Eosinophils # (Manual) PT INR Fibrinogen dRVVT Confirm Interp Factor V Activity POC ABG pH POC ABG pCO2 POC ABG pO2 ABG pO2 ABG HCO3 ABG Base Excess ABG Hemoglobin Oxyhemoglobin Sodium Potassium Chloride Carbon Dioxide BUN 64 H Creatinine 1.4 H Glucose 134 H POC Glucose 154 H Lactic Acid Calcium Phosphorus Magnesium Direct Bilirubin AST ALT Alkaline Phosphatase Lactate Dehydrogenase Troponin T C-Reactive Protein Total Protein Albumin Prealbumin Triglycerides Cholesterol LDL Cholesterol Direct HDL Cholesterol Urine pH Urine WBC (Auto) Urine Creatinine Urine Total Protein Fluid Total Protein Vancomycin Trough Rheumatoid Factor Complement C4 Miscellaneous Test Crossmatch 12/10/16 12/10/16 12/10/16 11:58 17:29 23:52 WBC RBC Hgb Hct MCV MCH MCHC RDW Plt Count Lymph % (Auto) Ada % (Auto) Lymph # Ada # Baso # Seg Neutrophils % Seg Neuts % (Manual) Lymphocytes % (Manual) Monocytes % (Manual) Eosinophils % (Manual) Basophils % (Manual) Nucleated RBC % Seg Neutrophils # Seg Neutrophils # Man Lymphocytes # (Manual) Monocytes # (Manual) Eosinophils # (Manual) PT INR Fibrinogen dRVVT Confirm Interp Factor V Activity POC ABG pH POC ABG pCO2 POC ABG pO2 ABG pO2 ABG HCO3 ABG Base Excess ABG Hemoglobin Oxyhemoglobin Sodium Potassium Chloride Carbon Dioxide BUN Creatinine Glucose POC Glucose 144 H 163 H 125 H Lactic Acid Calcium Phosphorus Magnesium Direct Bilirubin AST ALT Alkaline Phosphatase Lactate Dehydrogenase Troponin T C-Reactive Protein Total Protein Albumin Prealbumin Triglycerides Cholesterol LDL Cholesterol Direct HDL Cholesterol Urine pH Urine WBC (Auto) Urine Creatinine Urine Total Protein Fluid Total Protein Vancomycin Trough Rheumatoid Factor Complement C4 Miscellaneous Test Crossmatch 12/11/16 12/11/16 12/11/16 05:38 06:30 06:30 WBC 14.4 H RBC 2.76 L Hgb 7.7 L Hct 23.4 L MCV MCH MCHC RDW 17.2 H Plt Count Lymph % (Auto) Ada % (Auto) 8.8 H Lymph # Ada # 1.3 H Baso # Seg Neutrophils % 72.5 H Seg Neuts % (Manual) Lymphocytes % (Manual) Monocytes % (Manual) Eosinophils % (Manual) Basophils % (Manual) Nucleated RBC % Seg Neutrophils # 10.5 H Seg Neutrophils # Man Lymphocytes # (Manual) Monocytes # (Manual) Eosinophils # (Manual) PT INR Fibrinogen dRVVT Confirm Interp Factor V Activity POC ABG pH POC ABG pCO2 POC ABG pO2 ABG pO2 ABG HCO3 ABG Base Excess ABG Hemoglobin Oxyhemoglobin Sodium Potassium Chloride Carbon Dioxide BUN 43 H Creatinine Glucose 124 H POC Glucose 141 H Lactic Acid Calcium 8.3 L Phosphorus Magnesium 1.60 L Direct Bilirubin AST ALT Alkaline Phosphatase Lactate Dehydrogenase Troponin T C-Reactive Protein Total Protein Albumin Prealbumin Triglycerides Cholesterol LDL Cholesterol Direct HDL Cholesterol Urine pH Urine WBC (Auto) Urine Creatinine Urine Total Protein Fluid Total Protein Vancomycin Trough Rheumatoid Factor Complement C4 Miscellaneous Test Crossmatch 12/11/16 12/11/16 12/11/16 11:15 17:59 23:48 WBC RBC Hgb Hct MCV MCH MCHC RDW Plt Count Lymph % (Auto) Ada % (Auto) Lymph # Ada # Baso # Seg Neutrophils % Seg Neuts % (Manual) Lymphocytes % (Manual) Monocytes % (Manual) Eosinophils % (Manual) Basophils % (Manual) Nucleated RBC % Seg Neutrophils # Seg Neutrophils # Man Lymphocytes # (Manual) Monocytes # (Manual) Eosinophils # (Manual) PT INR Fibrinogen dRVVT Confirm Interp Factor V Activity POC ABG pH POC ABG pCO2 POC ABG pO2 ABG pO2 ABG HCO3 ABG Base Excess ABG Hemoglobin Oxyhemoglobin Sodium Potassium Chloride Carbon Dioxide BUN Creatinine Glucose POC Glucose 188 H 106 H 119 H Lactic Acid Calcium Phosphorus Magnesium Direct Bilirubin AST ALT Alkaline Phosphatase Lactate Dehydrogenase Troponin T C-Reactive Protein Total Protein Albumin Prealbumin Triglycerides Cholesterol LDL Cholesterol Direct HDL Cholesterol Urine pH Urine WBC (Auto) Urine Creatinine Urine Total Protein Fluid Total Protein Vancomycin Trough Rheumatoid Factor Complement C4 Miscellaneous Test Crossmatch 12/12/16 12/12/16 12/12/16 05:00 06:01 12:20 WBC 16.7 H RBC 2.87 L Hgb 8.0 L Hct 24.2 L MCV MCH MCHC RDW 17.6 H Plt Count Lymph % (Auto) Ada % (Auto) Lymph # Ada # 1.2 H Baso # Seg Neutrophils % 75.3 H Seg Neuts % (Manual) Lymphocytes % (Manual) Monocytes % (Manual) Eosinophils % (Manual) Basophils % (Manual) Nucleated RBC % Seg Neutrophils # 12.6 H Seg Neutrophils # Man Lymphocytes # (Manual) Monocytes # (Manual) Eosinophils # (Manual) PT INR Fibrinogen dRVVT Confirm Interp Factor V Activity POC ABG pH POC ABG pCO2 POC ABG pO2 ABG pO2 ABG HCO3 ABG Base Excess ABG Hemoglobin Oxyhemoglobin Sodium Potassium Chloride Carbon Dioxide BUN Creatinine Glucose POC Glucose 134 H 149 H Lactic Acid Calcium Phosphorus Magnesium Direct Bilirubin AST ALT Alkaline Phosphatase Lactate Dehydrogenase Troponin T C-Reactive Protein Total Protein Albumin Prealbumin Triglycerides Cholesterol LDL Cholesterol Direct HDL Cholesterol Urine pH Urine WBC (Auto) Urine Creatinine Urine Total Protein Fluid Total Protein Vancomycin Trough Rheumatoid Factor Complement C4 Miscellaneous Test Crossmatch 12/12/16 12/12/16 12/12/16 17:38 23:01 Unknown WBC RBC Hgb Hct MCV MCH MCHC RDW Plt Count Lymph % (Auto) [place] % (Auto) Lymph # Ada # Baso # Seg Neutrophils % Seg Neuts % (Manual) Lymphocytes % (Manual) Monocytes % (Manual) Eosinophils % (Manual) Basophils % (Manual) Nucleated RBC % Seg Neutrophils # Seg Neutrophils # Man Lymphocytes # (Manual) Monocytes # (Manual) Eosinophils # (Manual) PT INR Fibrinogen dRVVT Confirm Interp Factor V Activity POC ABG pH POC ABG pCO2 POC ABG pO2 ABG pO2 ABG HCO3 ABG Base Excess ABG Hemoglobin Oxyhemoglobin Sodium Potassium Chloride Carbon Dioxide BUN 60 H Creatinine 1.3 H Glucose 126 H POC Glucose 127 H 144 H Lactic Acid Calcium Phosphorus Magnesium Direct Bilirubin AST ALT Alkaline Phosphatase Lactate Dehydrogenase Troponin T C-Reactive Protein Total Protein Albumin Prealbumin Triglycerides Cholesterol LDL Cholesterol Direct HDL Cholesterol Urine pH Urine WBC (Auto) Urine Creatinine Urine Total Protein Fluid Total Protein Vancomycin Trough Rheumatoid Factor Complement C4 Miscellaneous Test Crossmatch 12/13/16 12/13/16 12/13/16 04:00 04:00 05:19 WBC 18.7 H RBC 2.89 L Hgb 8.3 L Hct 24.6 L MCV MCH MCHC RDW 17.5 H Plt Count Lymph % (Auto) Ada % (Auto) Lymph # Ada # 1.3 H Baso # Seg Neutrophils % 71.5 H Seg Neuts % (Manual) Lymphocytes % (Manual) Monocytes % (Manual) Eosinophils % (Manual) Basophils % (Manual) Nucleated RBC % Seg Neutrophils # 13.4 H Seg Neutrophils # Man Lymphocytes # (Manual) Monocytes # (Manual) Eosinophils # (Manual) PT INR Fibrinogen dRVVT Confirm Interp Factor V Activity POC ABG pH POC ABG pCO2 POC ABG pO2 ABG pO2 ABG HCO3 ABG Base Excess ABG Hemoglobin Oxyhemoglobin Sodium Potassium Chloride Carbon Dioxide BUN 73 H Creatinine 1.5 H Glucose 141 H POC Glucose 171 H Lactic Acid Calcium Phosphorus Magnesium Direct Bilirubin AST ALT Alkaline Phosphatase Lactate Dehydrogenase Troponin T C-Reactive Protein Total Protein Albumin Prealbumin Triglycerides Cholesterol LDL Cholesterol Direct HDL Cholesterol Urine pH Urine WBC (Auto) Urine Creatinine Urine Total Protein Fluid Total Protein Vancomycin Trough Rheumatoid Factor Complement C4 Miscellaneous Test Crossmatch 12/13/16 12/13/16 12/14/16 12:28 16:48 00:01 WBC RBC Hgb Hct MCV MCH MCHC RDW Plt Count Lymph % (Auto) [place] % (Auto) Lymph # [place] # Baso # Seg Neutrophils % Seg Neuts % (Manual) Lymphocytes % (Manual) Monocytes % (Manual) Eosinophils % (Manual) Basophils % (Manual) Nucleated RBC % Seg Neutrophils # Seg Neutrophils # Man Lymphocytes # (Manual) Monocytes # (Manual) Eosinophils # (Manual) PT INR Fibrinogen dRVVT Confirm Interp Factor V Activity POC ABG pH POC ABG pCO2 POC ABG pO2 ABG pO2 ABG HCO3 ABG Base Excess ABG Hemoglobin Oxyhemoglobin Sodium Potassium Chloride Carbon Dioxide BUN Creatinine Glucose POC Glucose 206 H 173 H 139 H Lactic Acid Calcium Phosphorus Magnesium Direct Bilirubin AST ALT Alkaline Phosphatase Lactate Dehydrogenase Troponin T C-Reactive Protein Total Protein Albumin Prealbumin Triglycerides Cholesterol LDL Cholesterol Direct HDL Cholesterol Urine pH Urine WBC (Auto) Urine Creatinine Urine Total Protein Fluid Total Protein Vancomycin Trough Rheumatoid Factor Complement C4 Miscellaneous Test Crossmatch 12/14/16 12/14/16 12/14/16 05:16 06:10 11:17 WBC RBC Hgb Hct MCV MCH MCHC RDW Plt Count Lymph % (Auto) [place] % (Auto) Lymph # [place] # Baso # Seg Neutrophils % Seg Neuts % (Manual) Lymphocytes % (Manual) Monocytes % (Manual) Eosinophils % (Manual) Basophils % (Manual) Nucleated RBC % Seg Neutrophils # Seg Neutrophils # Man Lymphocytes # (Manual) Monocytes # (Manual) Eosinophils # (Manual) PT INR Fibrinogen dRVVT Confirm Interp Factor V Activity POC ABG pH POC ABG pCO2 POC ABG pO2 ABG pO2 ABG HCO3 ABG Base Excess ABG Hemoglobin Oxyhemoglobin Sodium Potassium Chloride Carbon Dioxide BUN 57 H Creatinine 1.4 H Glucose 135 H POC Glucose 158 H 137 H Lactic Acid Calcium Phosphorus Magnesium Direct Bilirubin AST ALT Alkaline Phosphatase Lactate Dehydrogenase Troponin T C-Reactive Protein Total Protein Albumin Prealbumin Triglycerides Cholesterol LDL Cholesterol Direct HDL Cholesterol Urine pH Urine WBC (Auto) Urine Creatinine Urine Total Protein Fluid Total Protein Vancomycin Trough Rheumatoid Factor Complement C4 Miscellaneous Test Crossmatch 12/14/16 12/14/16 12/15/16 17:52 23:27 04:00 WBC RBC Hgb Hct MCV MCH MCHC RDW Plt Count Lymph % (Auto) [place] % (Auto) Lymph # [place] # Baso # Seg Neutrophils % Seg Neuts % (Manual) Lymphocytes % (Manual) Monocytes % (Manual) Eosinophils % (Manual) Basophils % (Manual) Nucleated RBC % Seg Neutrophils # Seg Neutrophils # Man Lymphocytes # (Manual) Monocytes # (Manual) Eosinophils # (Manual) PT INR Fibrinogen dRVVT Confirm Interp Factor V Activity POC ABG pH POC ABG pCO2 POC ABG pO2 ABG pO2 ABG HCO3 ABG Base Excess ABG Hemoglobin Oxyhemoglobin Sodium Potassium Chloride 97.9 L Carbon Dioxide BUN 75 H Creatinine 1.6 H Glucose 122 H POC Glucose 149 H 163 H Lactic Acid Calcium Phosphorus 5.20 H Magnesium Direct Bilirubin AST ALT Alkaline Phosphatase Lactate Dehydrogenase Troponin T C-Reactive Protein Total Protein Albumin Prealbumin Triglycerides Cholesterol LDL Cholesterol Direct HDL Cholesterol Urine pH Urine WBC (Auto) Urine Creatinine Urine Total Protein Fluid Total Protein Vancomycin Trough Rheumatoid Factor Complement C4 Miscellaneous Test Crossmatch 12/15/16 12/15/16 12/15/16 05:50 11:24 17:01 WBC RBC Hgb Hct MCV MCH MCHC RDW Plt Count Lymph % (Auto) [place] % (Auto) Lymph # [place] # Baso # Seg Neutrophils % Seg Neuts % (Manual) Lymphocytes % (Manual) Monocytes % (Manual) Eosinophils % (Manual) Basophils % (Manual) Nucleated RBC % Seg Neutrophils # Seg Neutrophils # Man Lymphocytes # (Manual) Monocytes # (Manual) Eosinophils # (Manual) PT INR Fibrinogen dRVVT Confirm Interp Factor V Activity POC ABG pH POC ABG pCO2 POC ABG pO2 ABG pO2 ABG HCO3 ABG Base Excess ABG Hemoglobin Oxyhemoglobin Sodium Potassium Chloride Carbon Dioxide BUN Creatinine Glucose POC Glucose 150 H 146 H 167 H Lactic Acid Calcium Phosphorus Magnesium Direct Bilirubin AST ALT Alkaline Phosphatase Lactate Dehydrogenase Troponin T C-Reactive Protein Total Protein Albumin Prealbumin Triglycerides Cholesterol LDL Cholesterol Direct HDL Cholesterol Urine pH Urine WBC (Auto) Urine Creatinine Urine Total Protein Fluid Total Protein Vancomycin Trough Rheumatoid Factor Complement C4 Miscellaneous Test Crossmatch 12/15/16 12/16/16 12/16/16 23:34 05:25 11:24 WBC RBC Hgb Hct MCV MCH MCHC RDW Plt Count Lymph % (Auto) [place] % (Auto) Lymph # [place] # Baso # Seg Neutrophils % Seg Neuts % (Manual) Lymphocytes % (Manual) Monocytes % (Manual) Eosinophils % (Manual) Basophils % (Manual) Nucleated RBC % Seg Neutrophils # Seg Neutrophils # Man Lymphocytes # (Manual) Monocytes # (Manual) Eosinophils # (Manual) PT INR Fibrinogen dRVVT Confirm Interp Factor V Activity POC ABG pH POC ABG pCO2 POC ABG pO2 ABG pO2 ABG HCO3 ABG Base Excess ABG Hemoglobin Oxyhemoglobin Sodium Potassium Chloride Carbon Dioxide BUN Creatinine Glucose POC Glucose 127 H 139 H 165 H Lactic Acid Calcium Phosphorus Magnesium Direct Bilirubin AST ALT Alkaline Phosphatase Lactate Dehydrogenase Troponin T C-Reactive Protein Total Protein Albumin Prealbumin Triglycerides Cholesterol LDL Cholesterol Direct HDL Cholesterol Urine pH Urine WBC (Auto) Urine Creatinine Urine Total Protein Fluid Total Protein Vancomycin Trough Rheumatoid Factor Complement C4 Miscellaneous Test Crossmatch Allied health notes reviewed: RT
[2016-12-16] MEDS ORDERED: DULCOLAX PR ONE (13:00)
[2016-12-16] MEDS ORDERED: NACL 0.9% 100 ML IV PRN (13:00)
[2016-12-16] MEDS: REGLAN IV SCH ×2 (13:19→17:57)
--- NOTE | 2016-12-16 13:30 | XRay Report ---
SUPINE KUB: History: Vomiting, constipation. The abdominal gas pattern is unremarkable. No masses or organomegaly is identified and there is no gross evidence of free air or fluid. No significant soft tissue calcifications are noted. A feeding tube terminates in the mid stomach. Cholecystectomy clips are noted in the right upper quadrant. IMPRESSION: No acute abdominal process is identified.
--- NOTE | 2016-12-16 13:31 | XRay Report ---
AP CHEST: HISTORY: Aspiration pneumonia The tracheostomy, feeding tube and left dialysis catheter in adequate position. Mild cardiomegaly and pulmonary venous congestion are identified which have increased slightly since 12/05/16. Hazy opacities obscure the lower lobes most consistent with bibasilar atelectasis or small bilateral pleural effusions. No convincing findings of aspiration pneumonia. IMPRESSION: Mild volume overload. Mild bibasilar atelectasis. No convincing evidence for aspiration.
[2016-12-16] MEDS ORDERED: NACL 0.9% 500 ML 500 ML IV ONE ×2 (15:23→17:00)
[2016-12-16] MEDS: DURAGESIC TD SCH (15:46)
[2016-12-16 15:50] LABS: Hematocrit 20.3 % (30.3-42.9); Hemoglobin 6.4 gm/dl (10.1-14.3); Mean Corpuscular HGB Conc 32 % (30-34); Mean Corpuscular Hemoglobin 27 pg (28-32); Mean Corpuscular Volume 85 fl (79-97); Platelet Count 328 K/mm3 (140-440); Red Blood Count 2.38 M/mm3 (3.65-5.03); Red Cell Distribution Width 17.4 % (13.2-15.2)
[2016-12-16] MEDS ORDERED: NACL 0.9% 500 ML 500 ML IV SCH (16:25)
[2016-12-16 16:34] LABS: Band Neutrophils # (Manual) 4.6 K/mm3; Basophils % (Manual) 0 % (0.0-1.8); Eosinophils % (Manual) 0 % (0.0-4.3); Total Cells Counted 100
[2016-12-16 16:35] LABS: Anisocytosis 1+; Hypochromasia 2+; Platelet Estimate Consistent w Auto
[2016-12-16] MEDS ORDERED: TPN ADULT IV SCH (20:00)
[2016-12-16] MEDS ORDERED: INTRALIPID 20% 250 ML IV SCH (20:00)
--- NOTE | 2016-12-16 23:55 | Progress Note ---
Assessment and Plan Assessment and plan: Patient is 46-year-old woman with a history of hypertension, diabetes, asthma, hyperlipidemia, chronic kidney disease and anxiety , who was brought in by family because, she couldn't get her words out, her face was also twisted, she was admitted for acute CVA and accelerated hypertension, she had a hx of poor adherence with her medications, and uncontrolled htn. Patient's SBP on admission was noted be greater than 260. TPA was started but this was discontinued after 5 minutes because her blood pressure became uncontrolled. The TPA was not initiated again because the patient was outside the TPA window. Patient has had a prolonged hospital stay complicated with recurrent severe sepsis. Patient with most recent event also status post cardiac arrest on and received CPR. --Severe Sepsis with septic shock, recurrent. Patient with multiple episodes of sepsis. Initial episode due to presumed aspiration pneumonia and septic episode on 09/23 from candidemia then a third episode from peritonitis from gastric perforation from dislodged PEG +/-UTI. Patient was also noted to have had Candidemia with Blood cultures positive for Silvia albicans 09/23, 09/25 but negative on 09/30. Antibiotic discontinued on 12/05 per ID. patient is s/p R thoracentesis on 11/14, 240cc of serous fluid removed, cx of fluid was negative. Also, Stool negative for C. difficile --Surgical wound infection/gram-negative sepsis/candidemia/peritonitis. Continue wound care to ostomy sites --Acute hypoxic respiratory failure, status post tracheostomy Patient placed back on ventilation. Patient currently with CPAP mode. Patient failed T-piece trials. Tracheostomy tube leak. Pulmonary following --Acute massive CVA with mass effect; continue antiplatelets and statins CT showed continued evolution of left MCA infarct with slight mass effect and edema, and there is no hemorrhage -PRINCE showed hyperdynamic ventricle with ef of 75%, neither clot nor septal defect seen -MRA Brain shows near complete occlusion of M2 and M3 of the left MCA carotid doppler negative -Echo shows preserved systolic function but does show some left ventricular diastolic dysfunction -continue asa and statin --Oliguric acute kidney injury. Etiology secondary to ATN on CKD. Baseline creatinine is approximately 1.7. --Paroxysmal atrial fibrillation with rapid ventricular rate, failed cardioversion Continue current medications, Not a candidate for anticoagulation secondary to anemia, thrombocytopenia and massive CVA --Anemia; probably secondary to GI bleeding Patient received multiple units of PRBC in the past, hemoglobin currently stable -Toxic metabolic encephalopathy; supportive care --Diabetes mellitus type 2, Insulin/SSI --Severe protein caloric malnutrition, cont TPN --s/p Thrombocytopenia. Now resolved --DVT prophylaxis, SCDs, no pharmacological agent given anemia , thrombocytopenia, massive stroke --Full code status, very poor prognosis History Interval history: patient seen and examined, reports that he is pain free. Hospitalist Physical - Constitutional Vitals: Temp Pulse Resp BP Pulse Ox 99.1 F 127 H 26 H 101/66 93 12/16/16 23:16 12/16/16 23:30 12/16/16 23:30 12/16/16 23:30 12/16/16 23:30 General appearance: Present: no acute distress, well-nourished, obese - EENT Eyes: Present: PERRL, EOM intact ENT: hearing intact, clear oral mucosa - Neck Neck: Present: supple, normal ROM - Respiratory Respiratory effort: normal Respiratory: bilateral: CTA - Cardiovascular Rhythm: regular Heart Sounds: Present: S1 & S2, systolic murmur - Extremities Extremities: no ischemia, pulses intact, pulses symmetrical Peripheral Pulses: within normal limits - Abdominal General gastrointestinal: soft, non-tender, non-distended, distended, normal bowel sounds Localized gastrointestinal: guarding: diffuse, RUQ, LUQ, RLQ Results - Labs CBC & Chem 7: 12/16/16 15:30 12/15/16 04:00 Labs: Laboratory Last Values WBC 17.8 K/mm3 (4.5-11.0) H 12/16/16 15:30 RBC 2.38 M/mm3 (3.65-5.03) L 12/16/16 15:30 Hgb 6.4 gm/dl (10.1-14.3) L 12/16/16 15:30 Hct 20.3 % (30.3-42.9) L 12/16/16 15:30 MCV 85 fl (79-97) 12/16/16 15:30 MCH 27 pg (28-32) L 12/16/16 15:30 MCHC 32 % (30-34) 12/16/16 15:30 RDW 17.4 % (13.2-15.2) H 12/16/16 15:30 Plt Count 328 K/mm3 (140-440) 12/16/16 15:30 Lymph % (Auto) 20.2 % (13.4-35.0) 12/13/16 04:00 [place] % (Auto) 7.2 % (0.0-7.3) 12/13/16 04:00 Eos % (Auto) 0.6 % (0.0-4.3) 12/13/16 04:00 Baso % (Auto) 0.5 % (0.0-1.8) 12/13/16 04:00 Lymph # 3.8 K/mm3 (1.2-5.4) 12/13/16 04:00 [place] # 1.3 K/mm3 (0.0-0.8) H 12/13/16 04:00 Eos # 0.1 K/mm3 (0.0-0.4) 12/13/16 04:00 Baso # 0.1 K/mm3 (0.0-0.1) 12/13/16 04:00 Add Manual Diff Complete 12/16/16 15:30 Total Counted 100 12/16/16 15:30 Seg Neutrophils % 71.5 % (40.0-70.0) H 12/13/16 04:00 Seg Neuts % (Manual) 48.0 % (40.0-70.0) 12/16/16 15:30 Band Neutrophils % 26.0 % 12/16/16 15:30 Lymphocytes % (Manual) 16.0 % (13.4-35.0) 12/16/16 15:30 Reactive Lymphs % (Man) 0 % 12/16/16 15:30 Monocytes % (Manual) 10.0 % (0.0-7.3) H 12/16/16 15:30 Eosinophils % (Manual) 0 % (0.0-4.3) 12/16/16 15:30 Basophils % (Manual) 0 % (0.0-1.8) 12/16/16 15:30 Metamyelocytes % 0 % 12/16/16 15:30 Myelocytes % 0 % 12/16/16 15:30 Promyelocytes % 0 % 12/16/16 15:30 Blast Cells % 0 % 12/16/16 15:30 Nucleated RBC % Not Reportable 12/16/16 15:30 Seg Neutrophils # 13.4 K/mm3 (1.8-7.7) H 12/13/16 04:00 Seg Neutrophils # Man 8.5 K/mm3 (1.8-7.7) H 12/16/16 15:30 Band Neutrophils # 4.6 K/mm3 12/16/16 15:30 Lymphocytes # (Manual) 2.8 K/mm3 (1.2-5.4) 12/16/16 15:30 Abs React Lymphs (Man) 0.0 K/mm3 12/16/16 15:30 Monocytes # (Manual) 1.8 K/mm3 (0.0-0.8) H 12/16/16 15:30 Eosinophils # (Manual) 0.0 K/mm3 (0.0-0.4) 12/16/16 15:30 Basophils # (Manual) 0.0 K/mm3 (0.0-0.1) 12/16/16 15:30 Metamyelocytes # 0.0 K/mm3 12/16/16 15:30 Myelocytes # 0.0 K/mm3 12/16/16 15:30 Promyelocytes # 0.0 K/mm3 12/16/16 15:30 Blast Cells # 0.0 K/mm3 12/16/16 15:30 Pathologist Review 09/13/16 04:00 WBC Morphology Not Reportable 12/16/16 15:30 Hypersegmented Neuts Not Reportable 12/16/16 15:30 Hyposegmented Neuts Not Reportable 12/16/16 15:30 Hypogranular Neuts Not Reportable 12/16/16 15:30 Smudge Cells Not Reportable 12/16/16 15:30 Toxic Granulation Not Reportable 12/16/16 15:30 Toxic Vacuolation Not Reportable 12/16/16 15:30 Dohle Bodies Not Reportable 12/16/16 15:30 Pelger-Huet Anomaly Not Reportable 12/16/16 15:30 Jasmina Rods Not Reportable 12/16/16 15:30 Platelet Estimate Consistent w auto 12/16/16 15:30 Clumped Platelets Not Reportable 12/16/16 15:30 Plt Clumps, EDTA Not Reportable 12/16/16 15:30 Large Platelets Not Reportable 12/16/16 15:30 Giant Platelets Not Reportable 12/16/16 15:30 Platelet Satelliting Not Reportable 12/16/16 15:30 Plt Morphology Comment Not Reportable 12/16/16 15:30 RBC Morphology Not Reportable 12/16/16 15:30 Dimorphic RBCs Not Reportable 12/16/16 15:30 Polychromasia Few 12/16/16 15:30 Hypochromasia 2+ 12/16/16 15:30 Poikilocytosis Not Reportable 12/16/16 15:30 Anisocytosis 1+ 12/16/16 15:30 Microcytosis Not Reportable 12/16/16 15:30 Macrocytosis Not Reportable 12/16/16 15:30 Spherocytes Not Reportable 12/16/16 15:30 Pappenheimer Bodies Not Reportable 12/16/16 15:30 Sickle Cells Not Reportable 12/16/16 15:30 Target Cells Not Reportable 12/16/16 15:30 Tear Drop Cells Not Reportable 12/16/16 15:30 Ovalocytes Not Reportable 12/16/16 15:30 Stomatocytes Rare 12/03/16 04:00 Helmet Cells Not Reportable 12/16/16 15:30 [place] Bodies Not Reportable 12/16/16 15:30 [place] Rings Not Reportable 12/16/16 15:30 [place] Cells Not Reportable 12/16/16 15:30 Bite Cells Not Reportable 12/16/16 15:30 Crenated Cell Not Reportable 12/16/16 15:30 Elliptocytes Not Reportable 12/16/16 15:30 Acanthocytes (Spur) Not Reportable 12/16/16 15:30 Rouleaux Not Reportable 12/16/16 15:30 Hemoglobin C Crystals Not Reportable 12/16/16 15:30 Schistocytes Not Reportable 12/16/16 15:30 Malaria parasites Not Reportable 12/16/16 15:30 ESR > 140.0 mm/Hr (0-20) 09/08/16 11:48 Jun Bodies Not Reportable 12/16/16 15:30 Hem Pathologist Commnt No 12/16/16 15:30 PT 16.8 Sec. (12.2-14.9) H 11/17/16 03:20 INR 1.37 (0.87-1.13) H 11/17/16 03:20 APTT 33.0 Sec. (24.2-36.6) 10/09/16 03:45 Thrombin Time 16.8 Sec. (15.1-19.6) 09/03/16 00:10 Fibrinogen 750 mg/dl (211-480) H 09/08/16 11:48 Lupus Anticoagulant see below 09/12/16 09:59 LA PTT Baseline See scanned report 09/12/16 09:59 dRVVT Confirm Interp Positive (Negative) H 09/12/16 09:59 dRVVT Screen 50:50 See scanned report 09/12/16 09:59 dRVVT Mix Interpret See scanned report 09/12/16 09:59 Protein C Antigen 122 % (70-140) 09/08/16 15:35 Free Protein S 97 % normal (50-147) 09/08/16 15:35 Total Protein S 109 % (70-140) 09/08/16 15:35 Antithrombin III Ag 100 % (80-120) 09/08/16 15:35 Heparin Anti-Xa, Unfract Negative (Negative) 09/29/16 13:35 Factor V Activity 182 % (65-150) H 09/08/16 15:35 POC ABG pH 7.487 (7.35-7.45) H 11/25/16 14:12 ABG pH 7.450 pH Units (7.350-7.450) 12/05/16 Unknown POC ABG pCO2 39.0 (35-45) 11/25/16 14:12 ABG pCO2 29.6 mm Hg 12/05/16 Unknown POC ABG pO2 153 (80-105) H 11/25/16 14:12 ABG pO2 75.2 mm Hg (80.0-90.0) L 12/05/16 Unknown POC ABG HCO3 29.5 11/25/16 14:12 ABG HCO3 20.1 mmol/L (20.0-26.0) 12/05/16 Unknown POC ABG Total CO2 31 11/25/16 14:12 POC ABG O2 Sat 99 11/25/16 14:12 ABG O2 Saturation 96.8 % (95.0-99.0) 12/05/16 Unknown ABG O2 Content 9.9 (0.0-44) 12/05/16 Unknown POC ABG Base Excess 6 11/25/16 14:12 ABG Base Excess -3.4 mmol/L (-2.0-3.0) L 12/05/16 Unknown ABG Hemoglobin 7.4 gm/dl (12.0-16.0) L 12/05/16 Unknown ABG Carboxyhemoglobin 1.8 % (0.0-5.0) 12/05/16 Unknown ABG Methemoglobin 0.6 % (0.0-1.5) 12/05/16 Unknown Oxyhemoglobin 94.5 % (95.0-99.0) L 12/05/16 Unknown FiO2 30 % 12/05/16 Unknown Sodium 140 mmol/L (137-145) 12/15/16 04:00 Potassium 4.9 mmol/L (3.6-5.0) 12/15/16 04:00 Chloride 97.9 mmol/L (98-107) L 12/15/16 04:00 Carbon Dioxide 23 mmol/L (22-30) 12/15/16 04:00 Anion Gap 24 mmol/L 12/15/16 04:00 BUN 75 mg/dL (7-17) H 12/15/16 04:00 Creatinine 1.6 mg/dL (0.7-1.2) H 12/15/16 04:00 Estimated GFR 42 ml/min 12/15/16 04:00 BUN/Creatinine Ratio 47 % 12/15/16 04:00 Glucose 122 mg/dL (65-100) H 12/15/16 04:00 POC Glucose 176 (70-105) H 12/16/16 17:31 Osmolality 351 Mosm/kg 09/16/16 11:47 Lactic Acid 4.50 mmol/L (0.7-2.0) H* 09/28/16 07:25 Calcium 9.0 mg/dL (8.4-10.2) 12/15/16 04:00 Phosphorus 5.20 mg/dL (2.5-4.5) H 12/15/16 04:00 Magnesium 1.90 mg/dL (1.7-2.3) 12/12/16 Unknown Total Bilirubin 0.20 mg/dL (0.1-1.2) 12/04/16 04:00 Direct Bilirubin 0.3 mg/dL (0-0.2) H 10/10/16 05:00 Indirect Bilirubin 0.1 mg/dL 10/10/16 05:00 AST 29 units/L (5-40) 12/04/16 04:00 ALT 43 units/L (7-56) 12/04/16 04:00 Alkaline Phosphatase 155 units/L (35-129) H 12/04/16 04:00 Ammonia 27.0 umol/L (25-60) 09/07/16 08:37 Lactate Dehydrogenase 196 units/L (91-180) H 11/11/16 06:59 Total Creatine Kinase 121 units/L (30-135) 09/29/16 20:12 CK-MB (CK-2) < 1.0 ng/mL (0.0-4.0) 09/29/16 20:12 CK-MB (CK-2) Rel Index 0.8 (0-4) 09/29/16 20:12 Troponin T 0.204 ng/mL (0.00-0.029) H* 09/29/16 20:12 C-Reactive Protein 19.30 mg/dL (0.00-1.30) H 12/05/16 05:00 Total Protein 5.5 g/dL (6.3-8.2) L 12/04/16 04:00 Albumin 1.5 g/dL (3.9-5) L 12/04/16 04:00 Albumin/Globulin Ratio 0.4 % 12/04/16 04:00 Prealbumin 0.180 g/L (0.200-0.400) L 11/06/16 06:25 Triglycerides 137 mg/dL (2-149) 09/29/16 20:12 Cholesterol 31 mg/dL (50-199) L 09/29/16 20:12 LDL Cholesterol Direct 4 mg/dL (50-130) L 09/29/16 20:12 HDL Cholesterol 3 mg/dL (40-59) L 09/29/16 20:12 Cholesterol/HDL Ratio 10.33 % 09/29/16 20:12 Angiotensin Convert Enz See scanned report 09/08/16 11:48 Renin 0.99 ng/mL/h (0.25-5.82) 10/07/16 10:56 Aldosterone <1 ng/dL () 10/07/16 10:56 Aldosterone/Renin Dir see below 10/07/16 10:56 Serotonin Release Assay See scanned report 09/29/16 13:35 TSH 1.010 mlU/mL (0.270-4.200) 09/07/16 08:37 HCG, Qual Negative (Negative) 09/03/16 00:10 Urine Color Yellow (Yellow) 11/05/16 13:09 Urine Turbidity Clear (Clear) 11/05/16 13:09 Urine pH 9.0 (5.0-7.0) H 11/05/16 13:09 Ur Specific [place] 1.011 (1.003-1.030) 11/05/16 13:09 Urine Protein 100 mg/dl mg/dL (Negative) 11/05/16 13:09 Urine Glucose (UA) Neg mg/dL (Negative) 11/05/16 13:09 Urine Ketones Neg mg/dL (Negative) 11/05/16 13:09 Urine Blood Neg (Negative) 11/05/16 13:09 Urine Nitrite Neg (Negative) 11/05/16 13:09 Urine Bilirubin Neg (Negative) 11/05/16 13:09 Urine Urobilinogen < 2.0 mg/dL (<2.0) 11/05/16 13:09 Ur Leukocyte Esterase Neg (Negative) 11/05/16 13:09 Urine WBC (Auto) 4.0 /HPF (0.0-6.0) 11/05/16 13:09 Urine RBC (Auto) 1.0 /HPF (0.0-6.0) 11/05/16 13:09 U Epithel Cells (Auto) 1.0 /HPF (0-13.0) 10/07/16 18:30 Urine Bacteria (Auto) 4+ /HPF (Negative) 11/05/16 13:09 Urine WBC Clumps 2+ /HPF 09/07/16 02:47 Hyaline Casts 4 /LPF 09/07/16 02:47 Urine Mucus Few /HPF 10/07/16 18:30 Urine Yeast (Budding) 3+ /HPF 10/07/16 18:30 Urine Eosinophils None seen (None Seen) 09/07/16 16:00 Urine Total Volume 950 11/12/16 10:18 Urine Creatinine 19.7 mg/dL (0.1-20.0) 11/12/16 10:18 Height (in) 65.0 inches 11/12/16 10:18 Weight (lb) 181.0 lbs 11/12/16 10:18 Creatinine Clearance 5 11/12/16 10:18 Urine Sodium 36 mEq/L 09/16/16 19:19 Urine Total Protein 16 mg/dL (5-11.8) H 09/16/16 19:19 Fluid Total Protein < 3.0 (15.0-45.0) L 11/10/16 14:20 Fluid LDH 123 11/10/16 14:20 Vancomycin Trough 2.3 ug/mL (5.0-20.0) L 09/21/16 13:00 Random Vancomycin 16.5 ug/mL (0-40.0) 11/28/16 09:45 Urine Opiates Screen Presumptive negative 09/03/16 15:11 Urine Methadone Screen Presumptive positive 09/03/16 15:11 Ur Barbiturates Screen Presumptive positive 09/03/16 15:11 Ur Phencyclidine Scrn Presumptive negative 09/03/16 15:11 Ur Amphetamines Screen Presumptive negative 09/03/16 15:11 U Benzodiazepines Scrn Presumptive negative 09/03/16 15:11 Urine Cocaine Screen Presumptive negative 09/03/16 15:11 U Marijuana (THC) Screen Presumptive positive 09/03/16 15:11 Drugs of Abuse Note Disclamer 09/03/16 15:11 Rheumatoid Factor 24 IU/ml (0-13) H 09/08/16 11:48 SAHIL Screen Negative (Negative) 09/07/16 09:20 Proteinase 3 (PR3) Ab <1.0 AI (<1.0) 09/07/16 09:20 Myeloperoxidase Ab <1.0 AI (<1.0) 09/07/16 09:20 Sjogren's Antibody <1.0 AI (<1.0) 09/08/16 15:35 Scl-70 Scleroderma Ab <1.0 AI (<1.0) 09/08/16 15:35 Centromere B Antibody <1.0 AI (<1.0) 09/08/16 12:02 Heparin-induced Plt Ab Negative (Negative) 09/29/16 13:35 UF Heparin High Dose 11 % Release 09/29/16 13:35 SUDHIR UFH Low Dose 0.1 6 % Release 09/29/16 13:35 SUDHIR UFH Low Dose 0.5 8 % Release 09/29/16 13:35 Cardiolipid IgG Ab <14 GPL (<=14) 09/12/16 09:59 Cardiolipid IgA Ab <11 APL (<=11) 09/12/16 09:59 Cardiolipid IgM Ab <12 MPL (<=12) 09/12/16 09:59 Complement C3 148 mg/dL (90-180) 09/07/16 09:20 Complement C4 58 mg/dL (16-47) H 09/07/16 09:20 RPR Nonreactive (Nonreactive) 09/08/16 11:48 Hepatitis A IgM Ab Non-reactive (NonReactive) 09/24/16 14:40 Hep Bs Antigen Non-reactive (Negative) 09/24/16 14:40 Hep B Core IgM Ab Non-reactive (NonReactive) 09/24/16 14:40 Hepatitis C Antibody Non-reactive (NonReactive) 09/24/16 14:40 HIV 1&2 Antibody Rapid Non react (Non React) 09/08/16 11:48 HIV P24 Antigen Non react (Non React) 09/08/16 11:48 Miscellaneous Test Flexitest 1 H 11/05/16 13:25 Blood Type A POSITIVE 12/16/16 16:25 Antibody Screen Negative 12/16/16 16:25 DELORIS Antibody Screen Negative 11/24/16 11:20 Crossmatch See Detail 12/16/16 16:25
[2016-12-17] MEDS: DUONEB *Not for PRN Use IH SCH ×5 (01:58→19:11)
[2016-12-17 05:21] LABS: Hematocrit 25.7 % (30.3-42.9); Hemoglobin 8.5 gm/dl (10.1-14.3); Mean Corpuscular HGB Conc 33 % (30-34); Mean Corpuscular Hemoglobin 28 pg (28-32); Mean Corpuscular Volume 86 fl (79-97); Platelet Count 387 K/mm3 (140-440); Red Blood Count 2.99 M/mm3 (3.65-5.03); Red Cell Distribution Width 17.2 % (13.2-15.2)
[2016-12-17 05:46] LABS: Calcium 9.1 mg/dL (8.4-10.2)
[2016-12-17] MEDS: APRESOLINE PO SCH ×3 (06:19→23:31)
[2016-12-17] MEDS: HumuLIN R SUB-Q SCH ×4 (06:21→17:59)
[2016-12-17] MEDS: REGLAN IV SCH ×4 (06:23→17:19)
[2016-12-17] MEDS: LOPRESSOR PO SCH ×5 (06:24→17:19)
[2016-12-17] MEDS ORDERED: DULCOLAX PR ONE (09:00)
[2016-12-17] MEDS: HEPARIN SUB-Q SCH ×3 (09:10→23:34)
[2016-12-17] MEDS: ROBINUL PO SCH ×2 (09:10→23:25)
[2016-12-17] MEDS: PROTONIX FEEDTUBE SCH (09:10)
[2016-12-17] MEDS: NORVASC PO SCH (09:15)
--- NOTE | 2016-12-17 11:03 | Progress Note ---
Assessment and Plan Acute Hypoxemic Respiratory Failure (now with exacerbation and back on MVS) Hypertension (unable to receive p.o. meds) s/p tracheostomy Acute encephalopathy s/p CVA Oropharyngeal dysphagia Enterococcal bacteremia sepsis syndrome Anemia Obesity JUANITA now on hemodialysis Enteric Fistula - received 1 unit PRBC with good Hb response - begin vasopressin if MAP falls < 60mmHg - prn CRP & lactate levels if clinically indicated (Follow WBC also) - keep on with daily PSV trials and / or T-piece as tolerated (repeat trial each shift if failed earlier shift) - continue TPN administration (continue TPN; NPO except for meds) - continue scopolamine for secretion control - continue to wean FiO2 for sats > 94% - continue bronchodilators and pulmonary toilet - VAP bundle addressed - continue prn IV metorolol - continue metoprolol and amlodipine (hold for hypotension) - continue HD/UF per nephrology (Teu/Thurs/Sat) - continue to follow electrolytes and correct as necessary - continue GI & VTE prophylaxis - Continue flu & pneumovax per protocol ... 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 Subjective Date of service: 12/17/16 Principal diagnosis: Acute resp failure on MVS; S/P Acute CVA; Acute Encephalopathy; JUANITA Interval history: Patient is seen today for: Acute resp failure on MVS; S/P Acute CVA; Acute Encephalopathy; JUANITA Seen and examined at bedside; 24hour events reviewed; nursing and respiratory care staff consulted; no adverse overnight events reported to me; bouts of emesis last 24hours; none this am; for dialysis; BP's labile; AMS is persistent Objective Vital Signs - 12hr 12/16/16 12/16/16 12/16/16 23:15 23:16 23:24 Temperature 99.1 F Pulse Rate 128 H 131 H Pulse Rate [ Anterior Bilateral Throughout] Respiratory 26 H Rate Respiratory Rate [Anterior Bilateral Throughout] Blood Pressure 95/70 95/70 O2 Sat by Pulse 92 93 Oximetry O2 Sat by Pulse Oximetry [ Assessment] 12/16/16 12/16/16 12/16/16 23:30 23:31 23:45 Temperature Pulse Rate 127 H 127 H 125 H Pulse Rate [ Anterior Bilateral Throughout] Respiratory 26 H 24 25 H Rate Respiratory Rate [Anterior Bilateral Throughout] Blood Pressure 101/66 101/66 101/66 O2 Sat by Pulse 93 94 92 Oximetry O2 Sat by Pulse Oximetry [ Assessment] 12/16/16 12/17/16 12/17/16 23:57 00:00 00:15 Temperature Pulse Rate 127 H 113 H Pulse Rate [ Anterior Bilateral Throughout] Respiratory 22 21 Rate Respiratory Rate [Anterior Bilateral Throughout] Blood Pressure 106/61 106/61 O2 Sat by Pulse 96 97 Oximetry O2 Sat by Pulse 96 Oximetry [ Assessment] 12/17/16 12/17/16 12/17/16 00:30 00:45 01:00 Temperature Pulse Rate 137 H 126 H 129 H Pulse Rate [ Anterior Bilateral Throughout] Respiratory 24 26 H 25 H Rate Respiratory Rate [Anterior Bilateral Throughout] Blood Pressure 108/72 108/72 103/61 O2 Sat by Pulse 98 96 96 Oximetry O2 Sat by Pulse Oximetry [ Assessment] 12/17/16 12/17/16 12/17/16 01:15 01:31 01:45 Temperature Pulse Rate 130 H 138 H 137 H Pulse Rate [ Anterior Bilateral Throughout] Respiratory 22 27 H 18 Rate Respiratory Rate [Anterior Bilateral Throughout] Blood Pressure 103/61 111/69 111/69 O2 Sat by Pulse 97 97 97 Oximetry O2 Sat by Pulse Oximetry [ Assessment] 12/17/16 12/17/16 12/17/16 02:00 02:15 02:30 Temperature Pulse Rate 131 H 138 H 127 H Pulse Rate [ Anterior Bilateral Throughout] Respiratory 30 H 24 22 Rate Respiratory Rate [Anterior Bilateral Throughout] Blood Pressure 113/67 113/67 121/76 O2 Sat by Pulse 93 96 96 Oximetry O2 Sat by Pulse Oximetry [ Assessment] 12/17/16 12/17/16 12/17/16 02:45 03:00 03:15 Temperature Pulse Rate 138 H 135 H 130 H Pulse Rate [ Anterior Bilateral Throughout] Respiratory 26 H 22 21 Rate Respiratory Rate [Anterior Bilateral Throughout] Blood Pressure 121/76 113/77 113/77 O2 Sat by Pulse 95 96 97 Oximetry O2 Sat by Pulse Oximetry [ Assessment] 12/17/16 12/17/16 12/17/16 03:28 03:31 03:41 Temperature 97.2 F L Pulse Rate 138 H 139 H Pulse Rate [ Anterior Bilateral Throughout] Respiratory 29 H Rate Respiratory Rate [Anterior Bilateral Throughout] Blood Pressure 113/77 146/94 O2 Sat by Pulse 95 95 Oximetry O2 Sat by Pulse Oximetry [ Assessment] 12/17/16 12/17/16 12/17/16 03:45 04:00 04:15 Temperature Pulse Rate 137 H 125 H 138 H Pulse Rate [ Anterior Bilateral Throughout] Respiratory 17 27 H 24 Rate Respiratory Rate [Anterior Bilateral Throughout] Blood Pressure 146/94 112/59 112/59 O2 Sat by Pulse 94 94 95 Oximetry O2 Sat by Pulse Oximetry [ Assessment] 12/17/16 12/17/16 12/17/16 04:30 04:45 05:00 Temperature Pulse Rate 141 H 143 H 144 H Pulse Rate [ Anterior Bilateral Throughout] Respiratory 25 H 26 H 29 H Rate Respiratory Rate [Anterior Bilateral Throughout] Blood Pressure 123/69 123/69 120/76 O2 Sat by Pulse 95 94 94 Oximetry O2 Sat by Pulse Oximetry [ Assessment] 12/17/16 12/17/16 12/17/16 05:15 05:31 05:45 Temperature Pulse Rate 139 H 138 H Pulse Rate [ Anterior Bilateral Throughout] Respiratory 31 H 26 H Rate Respiratory Rate [Anterior Bilateral Throughout] Blood Pressure 120/76 130/65 130/65 O2 Sat by Pulse 92 95 95 Oximetry O2 Sat by Pulse Oximetry [ Assessment] 12/17/16 12/17/16 12/17/16 06:00 06:15 06:19 Temperature Pulse Rate 139 H 143 H 145 H Pulse Rate [ Anterior Bilateral Throughout] Respiratory 25 H 25 H Rate Respiratory Rate [Anterior Bilateral Throughout] Blood Pressure 127/55 127/55 127/55 O2 Sat by Pulse 95 95 Oximetry O2 Sat by Pulse Oximetry [ Assessment] 12/17/16 12/17/16 12/17/16 06:30 06:45 07:00 Temperature Pulse Rate 132 H 147 H 145 H Pulse Rate [ Anterior Bilateral Throughout] Respiratory 14 25 H 23 Rate Respiratory Rate [Anterior Bilateral Throughout] Blood Pressure 108/69 108/69 107/70 O2 Sat by Pulse 96 97 92 Oximetry O2 Sat by Pulse Oximetry [ Assessment] 12/17/16 12/17/16 12/17/16 07:15 07:30 07:45 Temperature Pulse Rate 146 H 132 H 138 H Pulse Rate [ Anterior Bilateral Throughout] Respiratory 22 15 10 L Rate Respiratory Rate [Anterior Bilateral Throughout] Blood Pressure 107/70 107/70 108/69 O2 Sat by Pulse 98 98 99 Oximetry O2 Sat by Pulse Oximetry [ Assessment] 12/17/16 12/17/16 12/17/16 08:00 08:15 08:30 Temperature 98.3 F Pulse Rate 124 H 127 H 147 H Pulse Rate [ 154 H Anterior Bilateral Throughout] Respiratory 11 L 20 17 Rate Respiratory 23 Rate [Anterior Bilateral Throughout] Blood Pressure 108/68 108/68 100/67 O2 Sat by Pulse 99 98 99 Oximetry O2 Sat by Pulse Oximetry [ Assessment] 12/17/16 12/17/16 12/17/16 08:45 09:00 09:01 Temperature Pulse Rate 143 H 154 H 143 H Pulse Rate [ Anterior Bilateral Throughout] Respiratory 11 L 18 Rate Respiratory Rate [Anterior Bilateral Throughout] Blood Pressure 100/67 110/57 121/79 O2 Sat by Pulse 98 94 96 Oximetry O2 Sat by Pulse 95 Oximetry [ Assessment] 12/17/16 12/17/16 12/17/16 09:15 09:30 09:45 Temperature Pulse Rate 135 H 140 H 141 H Pulse Rate [ Anterior Bilateral Throughout] Respiratory 23 16 26 H Rate Respiratory Rate [Anterior Bilateral Throughout] Blood Pressure 121/79 113/77 113/77 O2 Sat by Pulse 96 91 94 Oximetry O2 Sat by Pulse Oximetry [ Assessment] 12/17/16 12/17/16 10:00 10:14 Temperature Pulse Rate 145 H 149 H Pulse Rate [ Anterior Bilateral Throughout] Respiratory 20 Rate Respiratory Rate [Anterior Bilateral Throughout] Blood Pressure 110/57 110/57 O2 Sat by Pulse 88 Oximetry O2 Sat by Pulse Oximetry [ Assessment] Constitutional: appears uncomfortable, other (not tracking) Eyes: non-icteric, other (tracheostomy tube in midline of neck) ENT: oropharynx moist, oropharyngeal exudate pre Neck: supple, no lymphadenopathy, no JVD, other (no thyromegaly) Effort: mildly labored Ascultation: Bilateral: rhonchi (and referred upper airway sounds) Percussion: Bilateral: not dull Cardiovascular: regular rate and rhythm, other (no rubs / murmurs) Gastrointestinal: hypoactive bowel sounds, soft, non-tender, non-distended, other (RLQ & LUQ stomas with colostomy bags) Integumentary: other (no rash; no cellulitis; poor turgor) Extremities: no cyanosis, pulses normal, no ischemia or petechiae, edema (1+ bilaterally) Neurologic: pupils equal and round, unable to assess, other (encephalopathic) Psychiatric: other (unable to assess) CBC and BMP: 12/17/16 05:00 12/17/16 04:00 ABG, PT/INR, D-dimer: ABG POC ABG pH 7.487 (7.35-7.45) H 11/25/16 14:12 ABG pH 7.450 pH Units (7.350-7.450) 12/05/16 Unknown POC ABG pCO2 39.0 (35-45) 11/25/16 14:12 ABG pCO2 29.6 mm Hg 12/05/16 Unknown POC ABG pO2 153 (80-105) H 11/25/16 14:12 ABG pO2 75.2 mm Hg (80.0-90.0) L 12/05/16 Unknown POC ABG HCO3 29.5 11/25/16 14:12 POC ABG Total CO2 31 11/25/16 14:12 POC ABG O2 Sat 99 11/25/16 14:12 ABG O2 Saturation 96.8 % (95.0-99.0) 12/05/16 Unknown PT/INR, D-dimer PT 16.8 Sec. (12.2-14.9) H 11/17/16 03:20 INR 1.37 (0.87-1.13) H 11/17/16 03:20 Abnormal lab findings: Abnormal Labs 09/03/16 09/03/16 09/03/16 12:12 15:07 16:20 WBC RBC Hgb Hct MCV MCH MCHC RDW Plt Count Lymph % (Auto) [place] % (Auto) Lymph # [place] # Baso # Seg Neutrophils % Seg Neuts % (Manual) Lymphocytes % (Manual) Monocytes % (Manual) Eosinophils % (Manual) Basophils % (Manual) Nucleated RBC % Seg Neutrophils # Seg Neutrophils # Man Lymphocytes # (Manual) Monocytes # (Manual) Eosinophils # (Manual) PT INR Fibrinogen dRVVT Confirm Interp Factor V Activity POC ABG pH 7.452 H POC ABG pCO2 POC ABG pO2 ABG pO2 ABG HCO3 ABG Base Excess ABG Hemoglobin Oxyhemoglobin Sodium Potassium Chloride Carbon Dioxide BUN Creatinine Glucose POC Glucose 178 H Lactic Acid Calcium Phosphorus 2.20 L Magnesium 1.60 L Direct Bilirubin AST ALT Alkaline Phosphatase Lactate Dehydrogenase Troponin T C-Reactive Protein Total Protein Albumin Prealbumin Triglycerides Cholesterol LDL Cholesterol Direct HDL Cholesterol Urine pH Urine WBC (Auto) Urine Creatinine Urine Total Protein Fluid Total Protein Vancomycin Trough Rheumatoid Factor Complement C4 Miscellaneous Test Crossmatch 09/03/16 09/03/16 09/03/16 17:57 17:58 23:50 WBC RBC Hgb Hct MCV MCH MCHC RDW Plt Count Lymph % (Auto) [place] % (Auto) Lymph # [place] # Baso # Seg Neutrophils % Seg Neuts % (Manual) Lymphocytes % (Manual) Monocytes % (Manual) Eosinophils % (Manual) Basophils % (Manual) Nucleated RBC % Seg Neutrophils # Seg Neutrophils # Man Lymphocytes # (Manual) Monocytes # (Manual) Eosinophils # (Manual) PT INR Fibrinogen dRVVT Confirm Interp Factor V Activity POC ABG pH POC ABG pCO2 POC ABG pO2 ABG pO2 ABG HCO3 ABG Base Excess ABG Hemoglobin Oxyhemoglobin Sodium Potassium Chloride Carbon Dioxide BUN Creatinine Glucose POC Glucose 162 H 145 H Lactic Acid Calcium Phosphorus 2.30 L Magnesium Direct Bilirubin AST ALT Alkaline Phosphatase Lactate Dehydrogenase Troponin T C-Reactive Protein Total Protein Albumin Prealbumin Triglycerides Cholesterol LDL Cholesterol Direct HDL Cholesterol Urine pH Urine WBC (Auto) Urine Creatinine Urine Total Protein Fluid Total Protein Vancomycin Trough Rheumatoid Factor Complement C4 Miscellaneous Test Crossmatch 09/04/16 09/04/16 09/04/16 03:31 03:31 05:42 WBC RBC Hgb 9.7 L D Hct MCV 72 L MCH 23 L MCHC RDW 17.5 H Plt Count Lymph % (Auto) 11.1 L [place] % (Auto) Lymph # [place] # Baso # Seg Neutrophils % 84.3 H Seg Neuts % (Manual) Lymphocytes % (Manual) Monocytes % (Manual) Eosinophils % (Manual) Basophils % (Manual) Nucleated RBC % Seg Neutrophils # 8.9 H Seg Neutrophils # Man Lymphocytes # (Manual) Monocytes # (Manual) Eosinophils # (Manual) PT INR Fibrinogen dRVVT Confirm Interp Factor V Activity POC ABG pH POC ABG pCO2 POC ABG pO2 ABG pO2 ABG HCO3 ABG Base Excess ABG Hemoglobin Oxyhemoglobin Sodium 135 L Potassium 2.9 L* Chloride 97.2 L Carbon Dioxide 19 L BUN Creatinine 1.7 H Glucose 170 H POC Glucose 152 H Lactic Acid Calcium Phosphorus Magnesium Direct Bilirubin AST ALT Alkaline Phosphatase Lactate Dehydrogenase Troponin T C-Reactive Protein Total Protein Albumin Prealbumin Triglycerides 160 H Cholesterol LDL Cholesterol Direct HDL Cholesterol 31 L Urine pH Urine WBC (Auto) Urine Creatinine Urine Total Protein Fluid Total Protein Vancomycin Trough Rheumatoid Factor Complement C4 Miscellaneous Test Crossmatch 09/04/16 09/04/16 09/04/16 11:34 17:46 23:29 WBC RBC Hgb Hct MCV MCH MCHC RDW Plt Count Lymph % (Auto) [place] % (Auto) Lymph # [place] # Baso # Seg Neutrophils % Seg Neuts % (Manual) Lymphocytes % (Manual) Monocytes % (Manual) Eosinophils % (Manual) Basophils % (Manual) Nucleated RBC % Seg Neutrophils # Seg Neutrophils # Man Lymphocytes # (Manual) Monocytes # (Manual) Eosinophils # (Manual) PT INR Fibrinogen dRVVT Confirm Interp Factor V Activity POC ABG pH POC ABG pCO2 POC ABG pO2 ABG pO2 ABG HCO3 ABG Base Excess ABG Hemoglobin Oxyhemoglobin Sodium Potassium Chloride Carbon Dioxide BUN Creatinine Glucose POC Glucose 165 H 210 H 139 H Lactic Acid Calcium Phosphorus Magnesium Direct Bilirubin AST ALT Alkaline Phosphatase Lactate Dehydrogenase Troponin T C-Reactive Protein Total Protein Albumin Prealbumin Triglycerides Cholesterol LDL Cholesterol Direct HDL Cholesterol Urine pH Urine WBC (Auto) Urine Creatinine Urine Total Protein Fluid Total Protein Vancomycin Trough Rheumatoid Factor Complement C4 Miscellaneous Test Crossmatch 09/05/16 09/05/16 09/05/16 04:05 04:05 05:38 WBC RBC Hgb Hct MCV 76 L D MCH 23 L MCHC RDW 17.8 H Plt Count Lymph % (Auto) [place] % (Auto) Lymph # [place] # Baso # Seg Neutrophils % Seg Neuts % (Manual) Lymphocytes % (Manual) Monocytes % (Manual) Eosinophils % (Manual) Basophils % (Manual) Nucleated RBC % Seg Neutrophils # Seg Neutrophils # Man Lymphocytes # (Manual) Monocytes # (Manual) Eosinophils # (Manual) PT INR Fibrinogen dRVVT Confirm Interp Factor V Activity POC ABG pH POC ABG pCO2 POC ABG pO2 ABG pO2 ABG HCO3 ABG Base Excess ABG Hemoglobin Oxyhemoglobin Sodium 134 L Potassium Chloride Carbon Dioxide 18 L BUN Creatinine 1.8 H Glucose 192 H POC Glucose 175 H Lactic Acid Calcium Phosphorus Magnesium Direct Bilirubin AST ALT Alkaline Phosphatase Lactate Dehydrogenase Troponin T C-Reactive Protein Total Protein Albumin Prealbumin Triglycerides Cholesterol LDL Cholesterol Direct HDL Cholesterol Urine pH Urine WBC (Auto) Urine Creatinine Urine Total Protein Fluid Total Protein Vancomycin Trough Rheumatoid Factor Complement C4 Miscellaneous Test Crossmatch 09/05/16 09/05/16 09/05/16 11:38 17:48 23:22 WBC RBC Hgb Hct MCV MCH MCHC RDW Plt Count Lymph % (Auto) [place] % (Auto) Lymph # [place] # Baso # Seg Neutrophils % Seg Neuts % (Manual) Lymphocytes % (Manual) Monocytes % (Manual) Eosinophils % (Manual) Basophils % (Manual) Nucleated RBC % Seg Neutrophils # Seg Neutrophils # Man Lymphocytes # (Manual) Monocytes # (Manual) Eosinophils # (Manual) PT INR Fibrinogen dRVVT Confirm Interp Factor V Activity POC ABG pH POC ABG pCO2 POC ABG pO2 ABG pO2 ABG HCO3 ABG Base Excess ABG Hemoglobin Oxyhemoglobin Sodium Potassium Chloride Carbon Dioxide BUN Creatinine Glucose POC Glucose 164 H 186 H 195 H Lactic Acid Calcium Phosphorus Magnesium Direct Bilirubin AST ALT Alkaline Phosphatase Lactate Dehydrogenase Troponin T C-Reactive Protein Total Protein Albumin Prealbumin Triglycerides Cholesterol LDL Cholesterol Direct HDL Cholesterol Urine pH Urine WBC (Auto) Urine Creatinine Urine Total Protein Fluid Total Protein Vancomycin Trough Rheumatoid Factor Complement C4 Miscellaneous Test Crossmatch 09/06/16 09/06/16 09/06/16 04:12 05:59 07:32 WBC RBC Hgb Hct MCV MCH MCHC RDW Plt Count Lymph % (Auto) [place] % (Auto) Lymph # [place] # Baso # Seg Neutrophils % Seg Neuts % (Manual) Lymphocytes % (Manual) Monocytes % (Manual) Eosinophils % (Manual) Basophils % (Manual) Nucleated RBC % Seg Neutrophils # Seg Neutrophils # Man Lymphocytes # (Manual) Monocytes # (Manual) Eosinophils # (Manual) PT INR Fibrinogen dRVVT Confirm Interp Factor V Activity POC ABG pH 7.514 H POC ABG pCO2 29.1 L POC ABG pO2 72 L ABG pO2 ABG HCO3 ABG Base Excess ABG Hemoglobin Oxyhemoglobin Sodium 133 L Potassium 3.4 L Chloride 94.9 L Carbon Dioxide 19 L BUN 30 H Creatinine 2.1 H Glucose 139 H POC Glucose 146 H Lactic Acid Calcium Phosphorus Magnesium Direct Bilirubin AST ALT Alkaline Phosphatase Lactate Dehydrogenase Troponin T C-Reactive Protein Total Protein Albumin Prealbumin Triglycerides Cholesterol LDL Cholesterol Direct HDL Cholesterol Urine pH Urine WBC (Auto) Urine Creatinine Urine Total Protein Fluid Total Protein Vancomycin Trough Rheumatoid Factor Complement C4 Miscellaneous Test Crossmatch 09/06/16 09/06/16 09/06/16 11:57 17:58 19:02 WBC RBC Hgb Hct MCV MCH MCHC RDW Plt Count Lymph % (Auto) [place] % (Auto) Lymph # [place] # Baso # Seg Neutrophils % Seg Neuts % (Manual) Lymphocytes % (Manual) Monocytes % (Manual) Eosinophils % (Manual) Basophils % (Manual) Nucleated RBC % Seg Neutrophils # Seg Neutrophils # Man Lymphocytes # (Manual) Monocytes # (Manual) Eosinophils # (Manual) PT INR Fibrinogen dRVVT Confirm Interp Factor V Activity POC ABG pH 7.465 H POC ABG pCO2 32.0 L POC ABG pO2 ABG pO2 ABG HCO3 ABG Base Excess ABG Hemoglobin Oxyhemoglobin Sodium Potassium Chloride Carbon Dioxide BUN Creatinine Glucose POC Glucose 165 H 160 H Lactic Acid Calcium Phosphorus Magnesium Direct Bilirubin AST ALT Alkaline Phosphatase Lactate Dehydrogenase Troponin T C-Reactive Protein Total Protein Albumin Prealbumin Triglycerides Cholesterol LDL Cholesterol Direct HDL Cholesterol Urine pH Urine WBC (Auto) Urine Creatinine Urine Total Protein Fluid Total Protein Vancomycin Trough Rheumatoid Factor Complement C4 Miscellaneous Test Crossmatch 09/06/16 09/07/16 09/07/16 23:45 02:47 02:47 WBC RBC Hgb Hct MCV MCH MCHC RDW Plt Count Lymph % (Auto) [place] % (Auto) Lymph # [place] # Baso # Seg Neutrophils % Seg Neuts % (Manual) Lymphocytes % (Manual) Monocytes % (Manual) Eosinophils % (Manual) Basophils % (Manual) Nucleated RBC % Seg Neutrophils # Seg Neutrophils # Man Lymphocytes # (Manual) Monocytes # (Manual) Eosinophils # (Manual) PT INR Fibrinogen dRVVT Confirm Interp Factor V Activity POC ABG pH POC ABG pCO2 POC ABG pO2 ABG pO2 ABG HCO3 ABG Base Excess ABG Hemoglobin Oxyhemoglobin Sodium Potassium Chloride Carbon Dioxide BUN Creatinine Glucose POC Glucose 204 H Lactic Acid Calcium Phosphorus Magnesium Direct Bilirubin AST ALT Alkaline Phosphatase Lactate Dehydrogenase Troponin T C-Reactive Protein Total Protein Albumin Prealbumin Triglycerides Cholesterol LDL Cholesterol Direct HDL Cholesterol Urine pH Urine WBC (Auto) 68.0 H Urine Creatinine 106.1 H Urine Total Protein Fluid Total Protein Vancomycin Trough Rheumatoid Factor Complement C4 Miscellaneous Test Crossmatch 09/07/16 09/07/16 09/07/16 04:50 06:19 06:39 WBC RBC Hgb Hct MCV MCH MCHC RDW Plt Count Lymph % (Auto) [place] % (Auto) Lymph # [place] # Baso # Seg Neutrophils % Seg Neuts % (Manual) Lymphocytes % (Manual) Monocytes % (Manual) Eosinophils % (Manual) Basophils % (Manual) Nucleated RBC % Seg Neutrophils # Seg Neutrophils # Man Lymphocytes # (Manual) Monocytes # (Manual) Eosinophils # (Manual) PT INR Fibrinogen dRVVT Confirm Interp Factor V Activity POC ABG pH 7.457 H POC ABG pCO2 32.1 L POC ABG pO2 76 L ABG pO2 ABG HCO3 ABG Base Excess ABG Hemoglobin Oxyhemoglobin Sodium 132 L Potassium Chloride 94.7 L Carbon Dioxide BUN 53 H Creatinine 2.9 H Glucose 151 H POC Glucose 149 H Lactic Acid Calcium Phosphorus Magnesium Direct Bilirubin AST ALT Alkaline Phosphatase Lactate Dehydrogenase Troponin T C-Reactive Protein Total Protein Albumin Prealbumin Triglycerides Cholesterol LDL Cholesterol Direct HDL Cholesterol Urine pH Urine WBC (Auto) Urine Creatinine Urine Total Protein Fluid Total Protein Vancomycin Trough Rheumatoid Factor Complement C4 Miscellaneous Test Crossmatch 09/07/16 09/07/16 09/07/16 09:20 11:43 11:43 WBC 19.4 H RBC Hgb 8.3 L Hct 26.4 L D MCV 72 L D MCH 22 L MCHC RDW 17.9 H Plt Count Lymph % (Auto) 8.5 L [place] % (Auto) Lymph # [place] # 1.0 H Baso # Seg Neutrophils % 85.8 H Seg Neuts % (Manual) Lymphocytes % (Manual) Monocytes % (Manual) Eosinophils % (Manual) Basophils % (Manual) Nucleated RBC % Seg Neutrophils # 16.6 H Seg Neutrophils # Man Lymphocytes # (Manual) Monocytes # (Manual) Eosinophils # (Manual) PT INR Fibrinogen dRVVT Confirm Interp Factor V Activity POC ABG pH POC ABG pCO2 POC ABG pO2 ABG pO2 ABG HCO3 ABG Base Excess ABG Hemoglobin Oxyhemoglobin Sodium 134 L Potassium Chloride 97.2 L Carbon Dioxide 20 L BUN 58 H Creatinine 2.9 H Glucose 147 H POC Glucose Lactic Acid Calcium Phosphorus 2.40 L Magnesium 2.40 H Direct Bilirubin AST ALT Alkaline Phosphatase Lactate Dehydrogenase Troponin T C-Reactive Protein Total Protein 5.8 L Albumin 2.2 L Prealbumin Triglycerides Cholesterol LDL Cholesterol Direct HDL Cholesterol Urine pH Urine WBC (Auto) Urine Creatinine Urine Total Protein Fluid Total Protein Vancomycin Trough Rheumatoid Factor Complement C4 58 H Miscellaneous Test Crossmatch 09/07/16 09/07/16 09/07/16 11:50 16:00 17:31 WBC RBC Hgb Hct MCV MCH MCHC RDW Plt Count Lymph % (Auto) [place] % (Auto) Lymph # [place] # Baso # Seg Neutrophils % Seg Neuts % (Manual) Lymphocytes % (Manual) Monocytes % (Manual) Eosinophils % (Manual) Basophils % (Manual) Nucleated RBC % Seg Neutrophils # Seg Neutrophils # Man Lymphocytes # (Manual) Monocytes # (Manual) Eosinophils # (Manual) PT INR Fibrinogen dRVVT Confirm Interp Factor V Activity POC ABG pH POC ABG pCO2 POC ABG pO2 158 H ABG pO2 ABG HCO3 ABG Base Excess ABG Hemoglobin Oxyhemoglobin Sodium Potassium Chloride Carbon Dioxide BUN Creatinine Glucose POC Glucose 175 H Lactic Acid Calcium Phosphorus Magnesium Direct Bilirubin AST ALT Alkaline Phosphatase Lactate Dehydrogenase Troponin T C-Reactive Protein Total Protein Albumin Prealbumin Triglycerides Cholesterol LDL Cholesterol Direct HDL Cholesterol Urine pH Urine WBC (Auto) Urine Creatinine 66.3 H Urine Total Protein Fluid Total Protein Vancomycin Trough Rheumatoid Factor Complement C4 Miscellaneous Test Crossmatch 09/07/16 09/08/16 09/08/16 23:50 05:46 06:18 WBC 17.8 H RBC 3.58 L Hgb 8.1 L Hct 25.5 L MCV 71 L MCH 23 L MCHC RDW 18.4 H Plt Count Lymph % (Auto) [place] % (Auto) Lymph # [place] # Baso # Seg Neutrophils % Seg Neuts % (Manual) 92.0 H Lymphocytes % (Manual) 6.0 L Monocytes % (Manual) Eosinophils % (Manual) Basophils % (Manual) Nucleated RBC % Seg Neutrophils # Seg Neutrophils # Man 16.4 H Lymphocytes # (Manual) 1.1 L Monocytes # (Manual) Eosinophils # (Manual) PT INR Fibrinogen dRVVT Confirm Interp Factor V Activity POC ABG pH POC ABG pCO2 34.3 L POC ABG pO2 71 L ABG pO2 ABG HCO3 ABG Base Excess ABG Hemoglobin Oxyhemoglobin Sodium Potassium Chloride Carbon Dioxide BUN Creatinine Glucose POC Glucose 216 H Lactic Acid Calcium Phosphorus Magnesium Direct Bilirubin AST ALT Alkaline Phosphatase Lactate Dehydrogenase Troponin T C-Reactive Protein Total Protein Albumin Prealbumin Triglycerides Cholesterol LDL Cholesterol Direct HDL Cholesterol Urine pH Urine WBC (Auto) Urine Creatinine Urine Total Protein Fluid Total Protein Vancomycin Trough Rheumatoid Factor Complement C4 Miscellaneous Test Crossmatch 09/08/16 09/08/16 09/08/16 06:18 06:51 10:55 WBC RBC Hgb Hct MCV MCH MCHC RDW Plt Count Lymph % (Auto) [place] % (Auto) Lymph # [place] # Baso # Seg Neutrophils % Seg Neuts % (Manual) Lymphocytes % (Manual) Monocytes % (Manual) Eosinophils % (Manual) Basophils % (Manual) Nucleated RBC % Seg Neutrophils # Seg Neutrophils # Man Lymphocytes # (Manual) Monocytes # (Manual) Eosinophils # (Manual) PT INR Fibrinogen dRVVT Confirm Interp Factor V Activity POC ABG pH POC ABG pCO2 POC ABG pO2 ABG pO2 ABG HCO3 ABG Base Excess ABG Hemoglobin Oxyhemoglobin Sodium 133 L Potassium Chloride 96.9 L Carbon Dioxide 20 L BUN 63 H Creatinine 2.7 H Glucose 195 H POC Glucose 204 H 169 H Lactic Acid Calcium Phosphorus Magnesium Direct Bilirubin AST ALT Alkaline Phosphatase Lactate Dehydrogenase Troponin T C-Reactive Protein Total Protein Albumin Prealbumin Triglycerides Cholesterol LDL Cholesterol Direct HDL Cholesterol Urine pH Urine WBC (Auto) Urine Creatinine Urine Total Protein Fluid Total Protein Vancomycin Trough Rheumatoid Factor Complement C4 Miscellaneous Test Crossmatch 09/08/16 09/08/16 09/08/16 11:48 11:48 11:48 WBC RBC Hgb Hct MCV MCH MCHC RDW Plt Count Lymph % (Auto) [place] % (Auto) Lymph # [place] # Baso # Seg Neutrophils % Seg Neuts % (Manual) Lymphocytes % (Manual) Monocytes % (Manual) Eosinophils % (Manual) Basophils % (Manual) Nucleated RBC % Seg Neutrophils # Seg Neutrophils # Man Lymphocytes # (Manual) Monocytes # (Manual) Eosinophils # (Manual) PT INR Fibrinogen 750 H dRVVT Confirm Interp Factor V Activity POC ABG pH POC ABG pCO2 POC ABG pO2 ABG pO2 ABG HCO3 ABG Base Excess ABG Hemoglobin Oxyhemoglobin Sodium Potassium Chloride Carbon Dioxide BUN Creatinine Glucose POC Glucose Lactic Acid Calcium Phosphorus Magnesium Direct Bilirubin AST ALT Alkaline Phosphatase Lactate Dehydrogenase Troponin T C-Reactive Protein 15.70 H Total Protein Albumin Prealbumin Triglycerides Cholesterol LDL Cholesterol Direct HDL Cholesterol Urine pH Urine WBC (Auto) Urine Creatinine Urine Total Protein Fluid Total Protein Vancomycin Trough Rheumatoid Factor 24 H Complement C4 Miscellaneous Test Crossmatch 09/08/16 09/08/16 09/09/16 15:35 18:25 00:24 WBC RBC Hgb Hct MCV MCH MCHC RDW Plt Count Lymph % (Auto) [place] % (Auto) Lymph # [place] # Baso # Seg Neutrophils % Seg Neuts % (Manual) Lymphocytes % (Manual) Monocytes % (Manual) Eosinophils % (Manual) Basophils % (Manual) Nucleated RBC % Seg Neutrophils # Seg Neutrophils # Man Lymphocytes # (Manual) Monocytes # (Manual) Eosinophils # (Manual) PT INR Fibrinogen dRVVT Confirm Interp Factor V Activity 182 H POC ABG pH POC ABG pCO2 POC ABG pO2 ABG pO2 ABG HCO3 ABG Base Excess ABG Hemoglobin Oxyhemoglobin Sodium Potassium Chloride Carbon Dioxide BUN Creatinine Glucose POC Glucose 184 H 216 H Lactic Acid Calcium Phosphorus Magnesium Direct Bilirubin AST ALT Alkaline Phosphatase Lactate Dehydrogenase Troponin T C-Reactive Protein Total Protein Albumin Prealbumin Triglycerides Cholesterol LDL Cholesterol Direct HDL Cholesterol Urine pH Urine WBC (Auto) Urine Creatinine Urine Total Protein Fluid Total Protein Vancomycin Trough Rheumatoid Factor Complement C4 Miscellaneous Test Crossmatch 09/09/16 09/09/16 09/09/16 03:00 03:00 04:04 WBC 27.9 H RBC Hgb 8.7 L Hct 28.1 L MCV 72 L MCH 22 L MCHC RDW 18.4 H Plt Count 485 H Lymph % (Auto) [place] % (Auto) Lymph # [place] # Baso # Seg Neutrophils % Seg Neuts % (Manual) 77.0 H Lymphocytes % (Manual) 9.0 L Monocytes % (Manual) Eosinophils % (Manual) Basophils % (Manual) Nucleated RBC % Seg Neutrophils # Seg Neutrophils # Man 21.5 H Lymphocytes # (Manual) Monocytes # (Manual) 2.0 H Eosinophils # (Manual) PT INR Fibrinogen dRVVT Confirm Interp Factor V Activity POC ABG pH POC ABG pCO2 POC ABG pO2 121 H ABG pO2 ABG HCO3 ABG Base Excess ABG Hemoglobin Oxyhemoglobin Sodium 135 L Potassium Chloride 96.3 L Carbon Dioxide 21 L BUN 83 H Creatinine 3.0 H Glucose 135 H POC Glucose Lactic Acid Calcium Phosphorus Magnesium Direct Bilirubin AST ALT Alkaline Phosphatase Lactate Dehydrogenase Troponin T C-Reactive Protein Total Protein Albumin Prealbumin Triglycerides Cholesterol LDL Cholesterol Direct HDL Cholesterol Urine pH Urine WBC (Auto) Urine Creatinine Urine Total Protein Fluid Total Protein Vancomycin Trough Rheumatoid Factor Complement C4 Miscellaneous Test Crossmatch 09/09/16 09/09/16 09/09/16 05:41 11:55 14:13 WBC RBC Hgb Hct MCV MCH MCHC RDW Plt Count Lymph % (Auto) [place] % (Auto) Lymph # [place] # Baso # Seg Neutrophils % Seg Neuts % (Manual) Lymphocytes % (Manual) Monocytes % (Manual) Eosinophils % (Manual) Basophils % (Manual) Nucleated RBC % Seg Neutrophils # Seg Neutrophils # Man Lymphocytes # (Manual) Monocytes # (Manual) Eosinophils # (Manual) PT INR Fibrinogen dRVVT Confirm Interp Factor V Activity POC ABG pH POC ABG pCO2 POC ABG pO2 ABG pO2 ABG HCO3 ABG Base Excess ABG Hemoglobin Oxyhemoglobin Sodium Potassium Chloride Carbon Dioxide BUN Creatinine Glucose POC Glucose 155 H 186 H Lactic Acid Calcium Phosphorus Magnesium Direct Bilirubin AST ALT Alkaline Phosphatase Lactate Dehydrogenase Troponin T C-Reactive Protein Total Protein Albumin Prealbumin Triglycerides Cholesterol LDL Cholesterol Direct HDL Cholesterol Urine pH Urine WBC (Auto) 25.0 H Urine Creatinine Urine Total Protein Fluid Total Protein Vancomycin Trough Rheumatoid Factor Complement C4 Miscellaneous Test Crossmatch 09/09/16 09/09/16 09/10/16 17:33 23:13 05:09 WBC RBC Hgb Hct MCV MCH MCHC RDW Plt Count Lymph % (Auto) [place] % (Auto) Lymph # [place] # Baso # Seg Neutrophils % Seg Neuts % (Manual) Lymphocytes % (Manual) Monocytes % (Manual) Eosinophils % (Manual) Basophils % (Manual) Nucleated RBC % Seg Neutrophils # Seg Neutrophils # Man Lymphocytes # (Manual) Monocytes # (Manual) Eosinophils # (Manual) PT INR Fibrinogen dRVVT Confirm Interp Factor V Activity POC ABG pH POC ABG pCO2 POC ABG pO2 74 L ABG pO2 ABG HCO3 ABG Base Excess ABG Hemoglobin Oxyhemoglobin Sodium Potassium Chloride Carbon Dioxide BUN Creatinine Glucose POC Glucose 211 H 215 H Lactic Acid Calcium Phosphorus Magnesium Direct Bilirubin AST ALT Alkaline Phosphatase Lactate Dehydrogenase Troponin T C-Reactive Protein Total Protein Albumin Prealbumin Triglycerides Cholesterol LDL Cholesterol Direct HDL Cholesterol Urine pH Urine WBC (Auto) Urine Creatinine Urine Total Protein Fluid Total Protein Vancomycin Trough Rheumatoid Factor Complement C4 Miscellaneous Test Crossmatch 09/10/16 09/10/16 09/10/16 05:17 05:17 11:31 WBC 15.8 H RBC 3.25 L Hgb 7.3 L Hct 22.9 L MCV 71 L MCH 23 L MCHC RDW 18.4 H Plt Count Lymph % (Auto) [place] % (Auto) Lymph # [place] # Baso # Seg Neutrophils % Seg Neuts % (Manual) 91.0 H Lymphocytes % (Manual) 4.0 L Monocytes % (Manual) Eosinophils % (Manual) Basophils % (Manual) Nucleated RBC % Seg Neutrophils # Seg Neutrophils # Man 14.4 H Lymphocytes # (Manual) 0.6 L Monocytes # (Manual) Eosinophils # (Manual) PT INR Fibrinogen dRVVT Confirm Interp Factor V Activity POC ABG pH POC ABG pCO2 POC ABG pO2 ABG pO2 ABG HCO3 ABG Base Excess ABG Hemoglobin Oxyhemoglobin Sodium Potassium Chloride Carbon Dioxide 21 L BUN 93 H Creatinine 2.9 H Glucose 146 H POC Glucose 188 H Lactic Acid Calcium 8.1 L Phosphorus Magnesium Direct Bilirubin AST ALT Alkaline Phosphatase Lactate Dehydrogenase Troponin T C-Reactive Protein Total Protein Albumin Prealbumin Triglycerides Cholesterol LDL Cholesterol Direct HDL Cholesterol Urine pH Urine WBC (Auto) Urine Creatinine Urine Total Protein Fluid Total Protein Vancomycin Trough Rheumatoid Factor Complement C4 Miscellaneous Test Crossmatch 09/10/16 09/10/16 09/10/16 13:17 17:20 23:32 WBC RBC Hgb Hct MCV MCH MCHC RDW Plt Count Lymph % (Auto) [place] % (Auto) Lymph # [place] # Baso # Seg Neutrophils % Seg Neuts % (Manual) Lymphocytes % (Manual) Monocytes % (Manual) Eosinophils % (Manual) Basophils % (Manual) Nucleated RBC % Seg Neutrophils # Seg Neutrophils # Man Lymphocytes # (Manual) Monocytes # (Manual) Eosinophils # (Manual) PT INR Fibrinogen dRVVT Confirm Interp Factor V Activity POC ABG pH POC ABG pCO2 POC ABG pO2 ABG pO2 ABG HCO3 ABG Base Excess ABG Hemoglobin Oxyhemoglobin Sodium Potassium Chloride Carbon Dioxide BUN Creatinine Glucose POC Glucose 199 H 186 H Lactic Acid Calcium Phosphorus Magnesium Direct Bilirubin AST ALT Alkaline Phosphatase Lactate Dehydrogenase Troponin T C-Reactive Protein Total Protein Albumin Prealbumin Triglycerides Cholesterol LDL Cholesterol Direct HDL Cholesterol Urine pH Urine WBC (Auto) Urine Creatinine Urine Total Protein Fluid Total Protein Vancomycin Trough Rheumatoid Factor Complement C4 Miscellaneous Test Crossmatch See Detail 09/11/16 09/11/16 09/11/16 05:10 05:10 05:17 WBC 28.4 H RBC Hgb 9.2 L Hct 29.3 L D MCV 73 L MCH 23 L MCHC RDW 18.9 H Plt Count 452 H Lymph % (Auto) [place] % (Auto) Lymph # [place] # Baso # Seg Neutrophils % Seg Neuts % (Manual) 89.5 H Lymphocytes % (Manual) 2.0 L Monocytes % (Manual) Eosinophils % (Manual) Basophils % (Manual) Nucleated RBC % Seg Neutrophils # Seg Neutrophils # Man 25.4 H Lymphocytes # (Manual) 0.6 L Monocytes # (Manual) 1.3 H Eosinophils # (Manual) PT INR Fibrinogen dRVVT Confirm Interp Factor V Activity POC ABG pH POC ABG pCO2 POC ABG pO2 ABG pO2 ABG HCO3 ABG Base Excess ABG Hemoglobin Oxyhemoglobin Sodium 136 L Potassium Chloride Carbon Dioxide 18 L BUN 107 H Creatinine 2.6 H Glucose 187 H POC Glucose 230 H Lactic Acid Calcium 8.3 L Phosphorus Magnesium Direct Bilirubin AST ALT Alkaline Phosphatase Lactate Dehydrogenase Troponin T C-Reactive Protein Total Protein Albumin Prealbumin Triglycerides Cholesterol LDL Cholesterol Direct HDL Cholesterol Urine pH Urine WBC (Auto) Urine Creatinine Urine Total Protein Fluid Total Protein Vancomycin Trough Rheumatoid Factor Complement C4 Miscellaneous Test Crossmatch 09/11/16 09/11/16 09/11/16 05:55 12:02 17:32 WBC RBC Hgb Hct MCV MCH MCHC RDW Plt Count Lymph % (Auto) [place] % (Auto) Lymph # [place] # Baso # Seg Neutrophils % Seg Neuts % (Manual) Lymphocytes % (Manual) Monocytes % (Manual) Eosinophils % (Manual) Basophils % (Manual) Nucleated RBC % Seg Neutrophils # Seg Neutrophils # Man Lymphocytes # (Manual) Monocytes # (Manual) Eosinophils # (Manual) PT INR Fibrinogen dRVVT Confirm Interp Factor V Activity POC ABG pH POC ABG pCO2 33.8 L POC ABG pO2 ABG pO2 ABG HCO3 ABG Base Excess ABG Hemoglobin Oxyhemoglobin Sodium Potassium Chloride Carbon Dioxide BUN Creatinine Glucose POC Glucose 191 H 239 H Lactic Acid Calcium Phosphorus Magnesium Direct Bilirubin AST ALT Alkaline Phosphatase Lactate Dehydrogenase Troponin T C-Reactive Protein Total Protein Albumin Prealbumin Triglycerides Cholesterol LDL Cholesterol Direct HDL Cholesterol Urine pH Urine WBC (Auto) Urine Creatinine Urine Total Protein Fluid Total Protein Vancomycin Trough Rheumatoid Factor Complement C4 Miscellaneous Test Crossmatch 09/11/16 09/12/16 09/12/16 23:52 05:09 05:32 WBC RBC Hgb Hct MCV MCH MCHC RDW Plt Count Lymph % (Auto) [place] % (Auto) Lymph # [place] # Baso # Seg Neutrophils % Seg Neuts % (Manual) Lymphocytes % (Manual) Monocytes % (Manual) Eosinophils % (Manual) Basophils % (Manual) Nucleated RBC % Seg Neutrophils # Seg Neutrophils # Man Lymphocytes # (Manual) Monocytes # (Manual) Eosinophils # (Manual) PT INR Fibrinogen dRVVT Confirm Interp Factor V Activity POC ABG pH POC ABG pCO2 34.6 L POC ABG pO2 ABG pO2 ABG HCO3 ABG Base Excess ABG Hemoglobin Oxyhemoglobin Sodium Potassium Chloride Carbon Dioxide BUN Creatinine Glucose POC Glucose 265 H 184 H Lactic Acid Calcium Phosphorus Magnesium Direct Bilirubin AST ALT Alkaline Phosphatase Lactate Dehydrogenase Troponin T C-Reactive Protein Total Protein Albumin Prealbumin Triglycerides Cholesterol LDL Cholesterol Direct HDL Cholesterol Urine pH Urine WBC (Auto) Urine Creatinine Urine Total Protein Fluid Total Protein Vancomycin Trough Rheumatoid Factor Complement C4 Miscellaneous Test Crossmatch 09/12/16 09/12/16 09/12/16 06:45 06:45 07:22 WBC 31.7 H RBC 3.54 L Hgb 8.3 L Hct 25.9 L MCV 73 L MCH 23 L MCHC RDW 18.9 H Plt Count Lymph % (Auto) [place] % (Auto) Lymph # [place] # Baso # Seg Neutrophils % Seg Neuts % (Manual) 88.5 H Lymphocytes % (Manual) 4.5 L Monocytes % (Manual) Eosinophils % (Manual) Basophils % (Manual) Nucleated RBC % Seg Neutrophils # Seg Neutrophils # Man 28.1 H Lymphocytes # (Manual) Monocytes # (Manual) 1.0 H Eosinophils # (Manual) PT INR Fibrinogen dRVVT Confirm Interp Factor V Activity POC ABG pH POC ABG pCO2 POC ABG pO2 ABG pO2 ABG HCO3 ABG Base Excess ABG Hemoglobin Oxyhemoglobin Sodium Potassium Chloride Carbon Dioxide 20 L BUN 115 H Creatinine 2.7 H Glucose 165 H POC Glucose Lactic Acid Calcium 8.0 L Phosphorus Magnesium Direct Bilirubin AST ALT Alkaline Phosphatase Lactate Dehydrogenase Troponin T C-Reactive Protein Total Protein Albumin Prealbumin Triglycerides 217 H Cholesterol LDL Cholesterol Direct HDL Cholesterol Urine pH Urine WBC (Auto) Urine Creatinine Urine Total Protein Fluid Total Protein Vancomycin Trough Rheumatoid Factor Complement C4 Miscellaneous Test Crossmatch 09/12/16 09/12/16 09/12/16 07:22 09:59 12:21 WBC RBC Hgb Hct MCV MCH MCHC RDW Plt Count Lymph % (Auto) [place] % (Auto) Lymph # [place] # Baso # Seg Neutrophils % Seg Neuts % (Manual) Lymphocytes % (Manual) Monocytes % (Manual) Eosinophils % (Manual) Basophils % (Manual) Nucleated RBC % Seg Neutrophils # Seg Neutrophils # Man Lymphocytes # (Manual) Monocytes # (Manual) Eosinophils # (Manual) PT INR Fibrinogen dRVVT Confirm Interp Positive H Factor V Activity POC ABG pH POC ABG pCO2 POC ABG pO2 ABG pO2 ABG HCO3 ABG Base Excess ABG Hemoglobin Oxyhemoglobin Sodium Potassium Chloride Carbon Dioxide BUN Creatinine Glucose POC Glucose 224 H Lactic Acid Calcium Phosphorus Magnesium Direct Bilirubin AST ALT Alkaline Phosphatase Lactate Dehydrogenase Troponin T C-Reactive Protein 1.70 H Total Protein Albumin Prealbumin Triglycerides Cholesterol LDL Cholesterol Direct HDL Cholesterol Urine pH Urine WBC (Auto) Urine Creatinine Urine Total Protein Fluid Total Protein Vancomycin Trough Rheumatoid Factor Complement C4 Miscellaneous Test Crossmatch 09/12/16 09/12/16 09/13/16 16:51 23:28 04:00 WBC 45.0 H* RBC Hgb 9.4 L Hct MCV 75 L MCH 23 L MCHC RDW 19.0 H Plt Count 470 H Lymph % (Auto) [place] % (Auto) Lymph # [place] # Baso # Seg Neutrophils % Seg Neuts % (Manual) 89.0 H Lymphocytes % (Manual) 5.0 L Monocytes % (Manual) Eosinophils % (Manual) Basophils % (Manual) Nucleated RBC % Seg Neutrophils # Seg Neutrophils # Man 40.1 H Lymphocytes # (Manual) Monocytes # (Manual) Eosinophils # (Manual) PT INR Fibrinogen dRVVT Confirm Interp Factor V Activity POC ABG pH POC ABG pCO2 POC ABG pO2 ABG pO2 ABG HCO3 ABG Base Excess ABG Hemoglobin Oxyhemoglobin Sodium Potassium Chloride Carbon Dioxide BUN Creatinine Glucose POC Glucose 169 H 150 H Lactic Acid Calcium Phosphorus Magnesium Direct Bilirubin AST ALT Alkaline Phosphatase Lactate Dehydrogenase Troponin T C-Reactive Protein Total Protein Albumin Prealbumin Triglycerides Cholesterol LDL Cholesterol Direct HDL Cholesterol Urine pH Urine WBC (Auto) Urine Creatinine Urine Total Protein Fluid Total Protein Vancomycin Trough Rheumatoid Factor Complement C4 Miscellaneous Test Crossmatch 09/13/16 09/13/16 09/13/16 04:00 11:26 17:31 WBC RBC Hgb Hct MCV MCH MCHC RDW Plt Count Lymph % (Auto) [place] % (Auto) Lymph # [place] # Baso # Seg Neutrophils % Seg Neuts % (Manual) Lymphocytes % (Manual) Monocytes % (Manual) Eosinophils % (Manual) Basophils % (Manual) Nucleated RBC % Seg Neutrophils # Seg Neutrophils # Man Lymphocytes # (Manual) Monocytes # (Manual) Eosinophils # (Manual) PT INR Fibrinogen dRVVT Confirm Interp Factor V Activity POC ABG pH POC ABG pCO2 POC ABG pO2 ABG pO2 ABG HCO3 ABG Base Excess ABG Hemoglobin Oxyhemoglobin Sodium Potassium Chloride Carbon Dioxide 20 L BUN 116 H Creatinine 3.0 H Glucose 172 H POC Glucose 140 H 183 H Lactic Acid Calcium Phosphorus Magnesium Direct Bilirubin AST ALT Alkaline Phosphatase Lactate Dehydrogenase Troponin T C-Reactive Protein Total Protein 6.2 L Albumin 2.9 L Prealbumin Triglycerides Cholesterol LDL Cholesterol Direct HDL Cholesterol Urine pH Urine WBC (Auto) Urine Creatinine Urine Total Protein Fluid Total Protein Vancomycin Trough Rheumatoid Factor Complement C4 Miscellaneous Test Crossmatch 09/13/16 09/14/16 09/14/16 23:23 04:06 04:07 WBC 29.4 H RBC Hgb 8.9 L Hct 27.3 L MCV 75 L MCH 24 L MCHC RDW 19.1 H Plt Count Lymph % (Auto) [place] % (Auto) Lymph # [place] # Baso # Seg Neutrophils % Seg Neuts % (Manual) 84.0 H Lymphocytes % (Manual) 6.0 L Monocytes % (Manual) 9.0 H Eosinophils % (Manual) Basophils % (Manual) Nucleated RBC % Seg Neutrophils # Seg Neutrophils # Man 24.7 H Lymphocytes # (Manual) Monocytes # (Manual) 2.6 H Eosinophils # (Manual) PT INR Fibrinogen dRVVT Confirm Interp Factor V Activity POC ABG pH 7.342 L POC ABG pCO2 POC ABG pO2 116 H ABG pO2 ABG HCO3 ABG Base Excess ABG Hemoglobin Oxyhemoglobin Sodium Potassium Chloride Carbon Dioxide BUN Creatinine Glucose POC Glucose 154 H Lactic Acid Calcium Phosphorus Magnesium Direct Bilirubin AST ALT Alkaline Phosphatase Lactate Dehydrogenase Troponin T C-Reactive Protein Total Protein Albumin Prealbumin Triglycerides Cholesterol LDL Cholesterol Direct HDL Cholesterol Urine pH Urine WBC (Auto) Urine Creatinine Urine Total Protein Fluid Total Protein Vancomycin Trough Rheumatoid Factor Complement C4 Miscellaneous Test Crossmatch 09/14/16 09/14/16 09/14/16 04:07 05:29 12:19 WBC RBC Hgb Hct MCV MCH MCHC RDW Plt Count Lymph % (Auto) [place] % (Auto) Lymph # [place] # Baso # Seg Neutrophils % Seg Neuts % (Manual) Lymphocytes % (Manual) Monocytes % (Manual) Eosinophils % (Manual) Basophils % (Manual) Nucleated RBC % Seg Neutrophils # Seg Neutrophils # Man Lymphocytes # (Manual) Monocytes # (Manual) Eosinophils # (Manual) PT INR Fibrinogen dRVVT Confirm Interp Factor V Activity POC ABG pH POC ABG pCO2 POC ABG pO2 ABG pO2 ABG HCO3 ABG Base Excess ABG Hemoglobin Oxyhemoglobin Sodium 136 L Potassium Chloride Carbon Dioxide 18 L BUN 121 H Creatinine 2.8 H Glucose 214 H POC Glucose 239 H 181 H Lactic Acid Calcium Phosphorus Magnesium Direct Bilirubin AST ALT Alkaline Phosphatase Lactate Dehydrogenase Troponin T C-Reactive Protein Total Protein Albumin Prealbumin Triglycerides Cholesterol LDL Cholesterol Direct HDL Cholesterol Urine pH Urine WBC (Auto) Urine Creatinine Urine Total Protein Fluid Total Protein Vancomycin Trough Rheumatoid Factor Complement C4 Miscellaneous Test Crossmatch 09/14/16 09/14/16 09/15/16 18:12 23:37 05:00 WBC 26.1 H RBC 3.05 L Hgb 7.2 L Hct 22.9 L MCV 75 L MCH 24 L MCHC RDW 19.0 H Plt Count Lymph % (Auto) [place] % (Auto) Lymph # [place] # Baso # Seg Neutrophils % Seg Neuts % (Manual) Lymphocytes % (Manual) Monocytes % (Manual) Eosinophils % (Manual) Basophils % (Manual) Nucleated RBC % Seg Neutrophils # Seg Neutrophils # Man Lymphocytes # (Manual) Monocytes # (Manual) Eosinophils # (Manual) PT INR Fibrinogen dRVVT Confirm Interp Factor V Activity POC ABG pH POC ABG pCO2 POC ABG pO2 ABG pO2 ABG HCO3 ABG Base Excess ABG Hemoglobin Oxyhemoglobin Sodium Potassium Chloride Carbon Dioxide BUN Creatinine Glucose POC Glucose 266 H 154 H Lactic Acid Calcium Phosphorus Magnesium Direct Bilirubin AST ALT Alkaline Phosphatase Lactate Dehydrogenase Troponin T C-Reactive Protein Total Protein Albumin Prealbumin Triglycerides Cholesterol LDL Cholesterol Direct HDL Cholesterol Urine pH Urine WBC (Auto) Urine Creatinine Urine Total Protein Fluid Total Protein Vancomycin Trough Rheumatoid Factor Complement C4 Miscellaneous Test Crossmatch 09/15/16 09/15/16 09/15/16 05:00 05:17 12:45 WBC RBC Hgb Hct MCV MCH MCHC RDW Plt Count Lymph % (Auto) [place] % (Auto) Lymph # [place] # Baso # Seg Neutrophils % Seg Neuts % (Manual) Lymphocytes % (Manual) Monocytes % (Manual) Eosinophils % (Manual) Basophils % (Manual) Nucleated RBC % Seg Neutrophils # Seg Neutrophils # Man Lymphocytes # (Manual) Monocytes # (Manual) Eosinophils # (Manual) PT INR Fibrinogen dRVVT Confirm Interp Factor V Activity POC ABG pH POC ABG pCO2 POC ABG pO2 ABG pO2 ABG HCO3 ABG Base Excess ABG Hemoglobin Oxyhemoglobin Sodium Potassium 5.2 H Chloride Carbon Dioxide 18 L BUN 139 H Creatinine 3.7 H Glucose 227 H POC Glucose 226 H 244 H Lactic Acid Calcium 8.3 L Phosphorus Magnesium Direct Bilirubin AST ALT Alkaline Phosphatase Lactate Dehydrogenase Troponin T C-Reactive Protein Total Protein Albumin Prealbumin Triglycerides Cholesterol LDL Cholesterol Direct HDL Cholesterol Urine pH Urine WBC (Auto) Urine Creatinine Urine Total Protein Fluid Total Protein Vancomycin Trough Rheumatoid Factor Complement C4 Miscellaneous Test Crossmatch 09/15/16 09/15/16 09/15/16 14:32 17:33 23:35 WBC RBC Hgb Hct MCV MCH MCHC RDW Plt Count Lymph % (Auto) [place] % (Auto) Lymph # [place] # Baso # Seg Neutrophils % Seg Neuts % (Manual) Lymphocytes % (Manual) Monocytes % (Manual) Eosinophils % (Manual) Basophils % (Manual) Nucleated RBC % Seg Neutrophils # Seg Neutrophils # Man Lymphocytes # (Manual) Monocytes # (Manual) Eosinophils # (Manual) PT INR Fibrinogen dRVVT Confirm Interp Factor V Activity POC ABG pH POC ABG pCO2 27.7 L POC ABG pO2 120 H ABG pO2 ABG HCO3 ABG Base Excess ABG Hemoglobin Oxyhemoglobin Sodium Potassium Chloride Carbon Dioxide BUN Creatinine Glucose POC Glucose 232 H 167 H Lactic Acid Calcium Phosphorus Magnesium Direct Bilirubin AST ALT Alkaline Phosphatase Lactate Dehydrogenase Troponin T C-Reactive Protein Total Protein Albumin Prealbumin Triglycerides Cholesterol LDL Cholesterol Direct HDL Cholesterol Urine pH Urine WBC (Auto) Urine Creatinine Urine Total Protein Fluid Total Protein Vancomycin Trough Rheumatoid Factor Complement C4 Miscellaneous Test Crossmatch 09/16/16 09/16/16 09/16/16 03:58 10:27 10:27 WBC 19.0 H RBC 2.77 L Hgb 6.5 L Hct 20.9 L MCV 76 L MCH 23 L MCHC RDW 19.3 H Plt Count Lymph % (Auto) 11.0 L [place] % (Auto) Lymph # [place] # 1.1 H Baso # Seg Neutrophils % 82.5 H Seg Neuts % (Manual) Lymphocytes % (Manual) Monocytes % (Manual) Eosinophils % (Manual) Basophils % (Manual) Nucleated RBC % Seg Neutrophils # 15.7 H Seg Neutrophils # Man Lymphocytes # (Manual) Monocytes # (Manual) Eosinophils # (Manual) PT INR Fibrinogen dRVVT Confirm Interp Factor V Activity POC ABG pH POC ABG pCO2 POC ABG pO2 ABG pO2 ABG HCO3 ABG Base Excess ABG Hemoglobin Oxyhemoglobin Sodium Potassium Chloride 109.3 H Carbon Dioxide 18 L BUN 139 H Creatinine 4.1 H Glucose 144 H POC Glucose 146 H Lactic Acid Calcium 8.1 L Phosphorus Magnesium Direct Bilirubin AST ALT Alkaline Phosphatase Lactate Dehydrogenase Troponin T C-Reactive Protein Total Protein Albumin Prealbumin Triglycerides Cholesterol LDL Cholesterol Direct HDL Cholesterol Urine pH Urine WBC (Auto) Urine Creatinine Urine Total Protein Fluid Total Protein Vancomycin Trough Rheumatoid Factor Complement C4 Miscellaneous Test Crossmatch 09/16/16 09/16/16 09/16/16 12:04 12:10 13:55 WBC RBC Hgb Hct MCV MCH MCHC RDW Plt Count Lymph % (Auto) [place] % (Auto) Lymph # [place] # Baso # Seg Neutrophils % Seg Neuts % (Manual) Lymphocytes % (Manual) Monocytes % (Manual) Eosinophils % (Manual) Basophils % (Manual) Nucleated RBC % Seg Neutrophils # Seg Neutrophils # Man Lymphocytes # (Manual) Monocytes # (Manual) Eosinophils # (Manual) PT INR Fibrinogen dRVVT Confirm Interp Factor V Activity POC ABG pH POC ABG pCO2 32.9 L POC ABG pO2 ABG pO2 ABG HCO3 ABG Base Excess ABG Hemoglobin Oxyhemoglobin Sodium Potassium Chloride Carbon Dioxide BUN Creatinine Glucose POC Glucose 185 H Lactic Acid Calcium Phosphorus Magnesium Direct Bilirubin AST ALT Alkaline Phosphatase Lactate Dehydrogenase Troponin T C-Reactive Protein Total Protein Albumin Prealbumin Triglycerides Cholesterol LDL Cholesterol Direct HDL Cholesterol Urine pH Urine WBC (Auto) Urine Creatinine Urine Total Protein Fluid Total Protein Vancomycin Trough Rheumatoid Factor Complement C4 Miscellaneous Test Crossmatch See Detail 09/16/16 09/16/16 09/16/16 17:55 19:19 23:48 WBC RBC Hgb Hct MCV MCH MCHC RDW Plt Count Lymph % (Auto) [place] % (Auto) Lymph # [place] # Baso # Seg Neutrophils % Seg Neuts % (Manual) Lymphocytes % (Manual) Monocytes % (Manual) Eosinophils % (Manual) Basophils % (Manual) Nucleated RBC % Seg Neutrophils # Seg Neutrophils # Man Lymphocytes # (Manual) Monocytes # (Manual) Eosinophils # (Manual) PT INR Fibrinogen dRVVT Confirm Interp Factor V Activity POC ABG pH POC ABG pCO2 POC ABG pO2 ABG pO2 ABG HCO3 ABG Base Excess ABG Hemoglobin Oxyhemoglobin Sodium Potassium Chloride Carbon Dioxide BUN Creatinine Glucose POC Glucose 222 H 107 H Lactic Acid Calcium Phosphorus Magnesium Direct Bilirubin AST ALT Alkaline Phosphatase Lactate Dehydrogenase Troponin T C-Reactive Protein Total Protein Albumin Prealbumin Triglycerides Cholesterol LDL Cholesterol Direct HDL Cholesterol Urine pH Urine WBC (Auto) Urine Creatinine 47.4 H Urine Total Protein 16 H Fluid Total Protein Vancomycin Trough Rheumatoid Factor Complement C4 Miscellaneous Test Crossmatch 09/17/16 09/17/16 09/17/16 03:45 03:45 04:55 WBC 19.6 H RBC 3.41 L Hgb 8.5 L Hct 26.7 L MCV 78 L MCH 25 L MCHC RDW 19.9 H Plt Count Lymph % (Auto) 9.3 L [place] % (Auto) Lymph # [place] # 1.2 H Baso # Seg Neutrophils % 83.9 H Seg Neuts % (Manual) Lymphocytes % (Manual) Monocytes % (Manual) Eosinophils % (Manual) Basophils % (Manual) Nucleated RBC % Seg Neutrophils # 16.4 H Seg Neutrophils # Man Lymphocytes # (Manual) Monocytes # (Manual) Eosinophils # (Manual) PT INR Fibrinogen dRVVT Confirm Interp Factor V Activity POC ABG pH POC ABG pCO2 POC ABG pO2 ABG pO2 ABG HCO3 ABG Base Excess ABG Hemoglobin Oxyhemoglobin Sodium 146 H Potassium 5.1 H Chloride 110.9 H Carbon Dioxide 16 L BUN 146 H Creatinine 4.0 H Glucose 108 H POC Glucose 133 H Lactic Acid Calcium Phosphorus Magnesium 3.00 H Direct Bilirubin AST ALT Alkaline Phosphatase Lactate Dehydrogenase Troponin T C-Reactive Protein Total Protein Albumin Prealbumin Triglycerides Cholesterol LDL Cholesterol Direct HDL Cholesterol Urine pH Urine WBC (Auto) Urine Creatinine Urine Total Protein Fluid Total Protein Vancomycin Trough Rheumatoid Factor Complement C4 Miscellaneous Test Crossmatch 09/17/16 09/17/16 09/17/16 11:15 17:33 23:47 WBC RBC Hgb Hct MCV MCH MCHC RDW Plt Count Lymph % (Auto) [place] % (Auto) Lymph # [place] # Baso # Seg Neutrophils % Seg Neuts % (Manual) Lymphocytes % (Manual) Monocytes % (Manual) Eosinophils % (Manual) Basophils % (Manual) Nucleated RBC % Seg Neutrophils # Seg Neutrophils # Man Lymphocytes # (Manual) Monocytes # (Manual) Eosinophils # (Manual) PT INR Fibrinogen dRVVT Confirm Interp Factor V Activity POC ABG pH POC ABG pCO2 POC ABG pO2 ABG pO2 ABG HCO3 ABG Base Excess ABG Hemoglobin Oxyhemoglobin Sodium Potassium Chloride Carbon Dioxide BUN Creatinine Glucose POC Glucose 176 H 246 H 148 H Lactic Acid Calcium Phosphorus Magnesium Direct Bilirubin AST ALT Alkaline Phosphatase Lactate Dehydrogenase Troponin T C-Reactive Protein Total Protein Albumin Prealbumin Triglycerides Cholesterol LDL Cholesterol Direct HDL Cholesterol Urine pH Urine WBC (Auto) Urine Creatinine Urine Total Protein Fluid Total Protein Vancomycin Trough Rheumatoid Factor Complement C4 Miscellaneous Test Crossmatch 09/18/16 09/18/16 09/18/16 05:33 08:31 08:31 WBC 18.0 H RBC 3.17 L Hgb 9.0 L Hct 25.7 L MCV MCH MCHC 35 H RDW 20.4 H Plt Count Lymph % (Auto) [place] % (Auto) Lymph # [place] # Baso # Seg Neutrophils % Seg Neuts % (Manual) Lymphocytes % (Manual) Monocytes % (Manual) Eosinophils % (Manual) Basophils % (Manual) Nucleated RBC % Seg Neutrophils # Seg Neutrophils # Man Lymphocytes # (Manual) Monocytes # (Manual) Eosinophils # (Manual) PT INR Fibrinogen dRVVT Confirm Interp Factor V Activity POC ABG pH POC ABG pCO2 POC ABG pO2 ABG pO2 ABG HCO3 ABG Base Excess ABG Hemoglobin Oxyhemoglobin Sodium Potassium Chloride Carbon Dioxide 15 L BUN 124 H Creatinine 3.8 H Glucose POC Glucose 120 H Lactic Acid Calcium 8.1 L Phosphorus Magnesium Direct Bilirubin AST ALT Alkaline Phosphatase Lactate Dehydrogenase Troponin T C-Reactive Protein Total Protein Albumin Prealbumin Triglycerides Cholesterol LDL Cholesterol Direct HDL Cholesterol Urine pH Urine WBC (Auto) Urine Creatinine Urine Total Protein Fluid Total Protein Vancomycin Trough Rheumatoid Factor Complement C4 Miscellaneous Test Crossmatch 09/18/16 09/18/16 09/18/16 12:03 15:34 17:50 WBC RBC Hgb Hct MCV MCH MCHC RDW Plt Count Lymph % (Auto) [place] % (Auto) Lymph # [place] # Baso # Seg Neutrophils % Seg Neuts % (Manual) Lymphocytes % (Manual) Monocytes % (Manual) Eosinophils % (Manual) Basophils % (Manual) Nucleated RBC % Seg Neutrophils # Seg Neutrophils # Man Lymphocytes # (Manual) Monocytes # (Manual) Eosinophils # (Manual) PT INR Fibrinogen dRVVT Confirm Interp Factor V Activity POC ABG pH POC ABG pCO2 25.7 L POC ABG pO2 66 L ABG pO2 ABG HCO3 ABG Base Excess ABG Hemoglobin Oxyhemoglobin Sodium Potassium Chloride Carbon Dioxide BUN Creatinine Glucose POC Glucose 156 H 220 H Lactic Acid Calcium Phosphorus Magnesium Direct Bilirubin AST ALT Alkaline Phosphatase Lactate Dehydrogenase Troponin T C-Reactive Protein Total Protein Albumin Prealbumin Triglycerides Cholesterol LDL Cholesterol Direct HDL Cholesterol Urine pH Urine WBC (Auto) Urine Creatinine Urine Total Protein Fluid Total Protein Vancomycin Trough Rheumatoid Factor Complement C4 Miscellaneous Test Crossmatch 09/19/16 09/19/16 09/19/16 06:21 09:50 09:50 WBC 17.1 H RBC 3.49 L Hgb 9.0 L Hct 28.1 L MCV MCH 26 L MCHC RDW 20.8 H Plt Count Lymph % (Auto) 11.5 L [place] % (Auto) 7.5 H Lymph # [place] # 1.3 H Baso # Seg Neutrophils % 79.8 H Seg Neuts % (Manual) Lymphocytes % (Manual) Monocytes % (Manual) Eosinophils % (Manual) Basophils % (Manual) Nucleated RBC % Seg Neutrophils # 13.7 H Seg Neutrophils # Man Lymphocytes # (Manual) Monocytes # (Manual) Eosinophils # (Manual) PT INR Fibrinogen dRVVT Confirm Interp Factor V Activity POC ABG pH POC ABG pCO2 POC ABG pO2 ABG pO2 ABG HCO3 ABG Base Excess ABG Hemoglobin Oxyhemoglobin Sodium Potassium Chloride 108.6 H Carbon Dioxide 15 L BUN 125 H Creatinine 4.1 H Glucose 124 H POC Glucose 119 H Lactic Acid Calcium Phosphorus Magnesium Direct Bilirubin AST ALT Alkaline Phosphatase Lactate Dehydrogenase Troponin T C-Reactive Protein Total Protein Albumin Prealbumin Triglycerides Cholesterol LDL Cholesterol Direct HDL Cholesterol Urine pH Urine WBC (Auto) Urine Creatinine Urine Total Protein Fluid Total Protein Vancomycin Trough Rheumatoid Factor Complement C4 Miscellaneous Test Crossmatch 09/19/16 09/19/16 09/19/16 11:25 17:53 23:36 WBC RBC Hgb Hct MCV MCH MCHC RDW Plt Count Lymph % (Auto) [place] % (Auto) Lymph # [place] # Baso # Seg Neutrophils % Seg Neuts % (Manual) Lymphocytes % (Manual) Monocytes % (Manual) Eosinophils % (Manual) Basophils % (Manual) Nucleated RBC % Seg Neutrophils # Seg Neutrophils # Man Lymphocytes # (Manual) Monocytes # (Manual) Eosinophils # (Manual) PT INR Fibrinogen dRVVT Confirm Interp Factor V Activity POC ABG pH POC ABG pCO2 POC ABG pO2 ABG pO2 ABG HCO3 ABG Base Excess ABG Hemoglobin Oxyhemoglobin Sodium Potassium Chloride Carbon Dioxide BUN Creatinine Glucose POC Glucose 160 H 245 H 121 H Lactic Acid Calcium Phosphorus Magnesium Direct Bilirubin AST ALT Alkaline Phosphatase Lactate Dehydrogenase Troponin T C-Reactive Protein Total Protein Albumin Prealbumin Triglycerides Cholesterol LDL Cholesterol Direct HDL Cholesterol Urine pH Urine WBC (Auto) Urine Creatinine Urine Total Protein Fluid Total Protein Vancomycin Trough Rheumatoid Factor Complement C4 Miscellaneous Test Crossmatch 09/20/16 09/20/16 09/20/16 04:10 04:10 04:10 WBC 17.0 H RBC 3.21 L Hgb 8.2 L Hct 25.5 L MCV MCH 26 L MCHC RDW 20.9 H Plt Count Lymph % (Auto) [place] % (Auto) Lymph # [place] # Baso # Seg Neutrophils % Seg Neuts % (Manual) Lymphocytes % (Manual) Monocytes % (Manual) Eosinophils % (Manual) Basophils % (Manual) Nucleated RBC % Seg Neutrophils # Seg Neutrophils # Man Lymphocytes # (Manual) Monocytes # (Manual) Eosinophils # (Manual) PT INR Fibrinogen dRVVT Confirm Interp Factor V Activity POC ABG pH POC ABG pCO2 POC ABG pO2 ABG pO2 ABG HCO3 ABG Base Excess ABG Hemoglobin Oxyhemoglobin Sodium Potassium Chloride 111.0 H Carbon Dioxide 16 L BUN 129 H Creatinine 3.7 H Glucose 115 H POC Glucose Lactic Acid Calcium 8.2 L Phosphorus Magnesium Direct Bilirubin AST ALT Alkaline Phosphatase Lactate Dehydrogenase Troponin T C-Reactive Protein Total Protein Albumin Prealbumin Triglycerides 243 H Cholesterol LDL Cholesterol Direct HDL Cholesterol Urine pH Urine WBC (Auto) Urine Creatinine Urine Total Protein Fluid Total Protein Vancomycin Trough Rheumatoid Factor Complement C4 Miscellaneous Test Crossmatch 09/20/16 09/20/16 09/20/16 05:40 11:52 16:50 WBC RBC Hgb Hct MCV MCH MCHC RDW Plt Count Lymph % (Auto) [place] % (Auto) Lymph # [place] # Baso # Seg Neutrophils % Seg Neuts % (Manual) Lymphocytes % (Manual) Monocytes % (Manual) Eosinophils % (Manual) Basophils % (Manual) Nucleated RBC % Seg Neutrophils # Seg Neutrophils # Man Lymphocytes # (Manual) Monocytes # (Manual) Eosinophils # (Manual) PT INR Fibrinogen dRVVT Confirm Interp Factor V Activity POC ABG pH POC ABG pCO2 POC ABG pO2 ABG pO2 ABG HCO3 ABG Base Excess ABG Hemoglobin Oxyhemoglobin Sodium Potassium Chloride Carbon Dioxide BUN Creatinine Glucose POC Glucose 131 H 183 H 236 H Lactic Acid Calcium Phosphorus Magnesium Direct Bilirubin AST ALT Alkaline Phosphatase Lactate Dehydrogenase Troponin T C-Reactive Protein Total Protein Albumin Prealbumin Triglycerides Cholesterol LDL Cholesterol Direct HDL Cholesterol Urine pH Urine WBC (Auto) Urine Creatinine Urine Total Protein Fluid Total Protein Vancomycin Trough Rheumatoid Factor Complement C4 Miscellaneous Test Crossmatch 09/20/16 09/21/16 09/21/16 23:51 03:30 04:44 WBC RBC Hgb Hct MCV MCH MCHC RDW Plt Count Lymph % (Auto) [place] % (Auto) Lymph # [place] # Baso # Seg Neutrophils % Seg Neuts % (Manual) Lymphocytes % (Manual) Monocytes % (Manual) Eosinophils % (Manual) Basophils % (Manual) Nucleated RBC % Seg Neutrophils # Seg Neutrophils # Man Lymphocytes # (Manual) Monocytes # (Manual) Eosinophils # (Manual) PT INR Fibrinogen dRVVT Confirm Interp Factor V Activity POC ABG pH POC ABG pCO2 POC ABG pO2 ABG pO2 ABG HCO3 ABG Base Excess ABG Hemoglobin Oxyhemoglobin Sodium Potassium Chloride Carbon Dioxide BUN Creatinine Glucose POC Glucose 114 H 141 H Lactic Acid Calcium Phosphorus Magnesium 2.70 H Direct Bilirubin AST ALT Alkaline Phosphatase Lactate Dehydrogenase Troponin T C-Reactive Protein Total Protein Albumin Prealbumin Triglycerides Cholesterol LDL Cholesterol Direct HDL Cholesterol Urine pH Urine WBC (Auto) Urine Creatinine Urine Total Protein Fluid Total Protein Vancomycin Trough Rheumatoid Factor Complement C4 Miscellaneous Test Crossmatch 09/21/16 09/21/16 09/21/16 07:45 07:45 10:01 WBC 13.8 H RBC 2.94 L Hgb 7.5 L Hct 23.5 L MCV MCH 26 L MCHC RDW 21.2 H Plt Count Lymph % (Auto) 6.9 L [place] % (Auto) 9.4 H Lymph # 0.9 L [place] # 1.3 H Baso # Seg Neutrophils % 83.2 H Seg Neuts % (Manual) Lymphocytes % (Manual) Monocytes % (Manual) Eosinophils % (Manual) Basophils % (Manual) Nucleated RBC % Seg Neutrophils # 11.5 H Seg Neutrophils # Man Lymphocytes # (Manual) Monocytes # (Manual) Eosinophils # (Manual) PT INR Fibrinogen dRVVT Confirm Interp Factor V Activity POC ABG pH 7.308 L POC ABG pCO2 31.9 L POC ABG pO2 148 H ABG pO2 ABG HCO3 ABG Base Excess ABG Hemoglobin Oxyhemoglobin Sodium 147 H Potassium Chloride 114.2 H Carbon Dioxide 15 L BUN 120 H Creatinine 3.9 H Glucose 156 H POC Glucose Lactic Acid Calcium 8.2 L Phosphorus Magnesium Direct Bilirubin AST ALT Alkaline Phosphatase Lactate Dehydrogenase Troponin T C-Reactive Protein Total Protein Albumin Prealbumin Triglycerides Cholesterol LDL Cholesterol Direct HDL Cholesterol Urine pH Urine WBC (Auto) Urine Creatinine Urine Total Protein Fluid Total Protein Vancomycin Trough Rheumatoid Factor Complement C4 Miscellaneous Test Crossmatch 09/21/16 09/21/16 09/21/16 12:00 12:03 13:00 WBC RBC Hgb Hct MCV MCH MCHC RDW Plt Count Lymph % (Auto) [place] % (Auto) Lymph # [place] # Baso # Seg Neutrophils % Seg Neuts % (Manual) Lymphocytes % (Manual) Monocytes % (Manual) Eosinophils % (Manual) Basophils % (Manual) Nucleated RBC % Seg Neutrophils # Seg Neutrophils # Man Lymphocytes # (Manual) Monocytes # (Manual) Eosinophils # (Manual) PT INR Fibrinogen dRVVT Confirm Interp Factor V Activity POC ABG pH POC ABG pCO2 POC ABG pO2 ABG pO2 ABG HCO3 ABG Base Excess ABG Hemoglobin Oxyhemoglobin Sodium Potassium Chloride Carbon Dioxide BUN Creatinine Glucose POC Glucose 163 H Lactic Acid Calcium Phosphorus Magnesium Direct Bilirubin AST ALT Alkaline Phosphatase Lactate Dehydrogenase Troponin T C-Reactive Protein Total Protein Albumin Prealbumin Triglycerides Cholesterol LDL Cholesterol Direct HDL Cholesterol Urine pH Urine WBC (Auto) Urine Creatinine 54.8 H Urine Total Protein Fluid Total Protein Vancomycin Trough 2.3 L Rheumatoid Factor Complement C4 Miscellaneous Test Crossmatch 09/21/16 09/21/16 09/22/16 16:51 23:17 06:27 WBC RBC Hgb Hct MCV MCH MCHC RDW Plt Count Lymph % (Auto) [place] % (Auto) Lymph # [place] # Baso # Seg Neutrophils % Seg Neuts % (Manual) Lymphocytes % (Manual) Monocytes % (Manual) Eosinophils % (Manual) Basophils % (Manual) Nucleated RBC % Seg Neutrophils # Seg Neutrophils # Man Lymphocytes # (Manual) Monocytes # (Manual) Eosinophils # (Manual) PT INR Fibrinogen dRVVT Confirm Interp Factor V Activity POC ABG pH POC ABG pCO2 POC ABG pO2 ABG pO2 ABG HCO3 ABG Base Excess ABG Hemoglobin Oxyhemoglobin Sodium Potassium Chloride Carbon Dioxide BUN Creatinine Glucose POC Glucose 206 H 114 H 115 H Lactic Acid Calcium Phosphorus Magnesium Direct Bilirubin AST ALT Alkaline Phosphatase Lactate Dehydrogenase Troponin T C-Reactive Protein Total Protein Albumin Prealbumin Triglycerides Cholesterol LDL Cholesterol Direct HDL Cholesterol Urine pH Urine WBC (Auto) Urine Creatinine Urine Total Protein Fluid Total Protein Vancomycin Trough Rheumatoid Factor Complement C4 Miscellaneous Test Crossmatch 09/22/16 09/22/16 09/22/16 07:50 07:50 12:00 WBC 17.8 H RBC 3.04 L Hgb 8.0 L Hct 24.7 L MCV MCH 26 L MCHC RDW 21.6 H Plt Count Lymph % (Auto) [place] % (Auto) Lymph # [place] # Baso # Seg Neutrophils % Seg Neuts % (Manual) Lymphocytes % (Manual) Monocytes % (Manual) Eosinophils % (Manual) Basophils % (Manual) Nucleated RBC % Seg Neutrophils # Seg Neutrophils # Man Lymphocytes # (Manual) Monocytes # (Manual) Eosinophils # (Manual) PT INR Fibrinogen dRVVT Confirm Interp Factor V Activity POC ABG pH POC ABG pCO2 POC ABG pO2 ABG pO2 ABG HCO3 ABG Base Excess ABG Hemoglobin Oxyhemoglobin Sodium 150 H Potassium Chloride 118.2 H Carbon Dioxide 14 L BUN 111 H Creatinine 3.7 H Glucose 157 H POC Glucose 183 H Lactic Acid Calcium Phosphorus Magnesium Direct Bilirubin AST ALT Alkaline Phosphatase Lactate Dehydrogenase Troponin T C-Reactive Protein Total Protein Albumin Prealbumin Triglycerides Cholesterol LDL Cholesterol Direct HDL Cholesterol Urine pH Urine WBC (Auto) Urine Creatinine Urine Total Protein Fluid Total Protein Vancomycin Trough Rheumatoid Factor Complement C4 Miscellaneous Test Crossmatch 09/22/16 09/22/16 09/23/16 17:29 23:10 05:00 WBC 19.2 H RBC 3.13 L Hgb 8.0 L Hct 25.2 L MCV MCH 26 L MCHC RDW 22.1 H Plt Count Lymph % (Auto) [place] % (Auto) Lymph # [place] # Baso # Seg Neutrophils % Seg Neuts % (Manual) 92.0 H Lymphocytes % (Manual) 3.0 L Monocytes % (Manual) Eosinophils % (Manual) Basophils % (Manual) Nucleated RBC % Seg Neutrophils # Seg Neutrophils # Man 17.7 H Lymphocytes # (Manual) 0.6 L Monocytes # (Manual) Eosinophils # (Manual) PT INR Fibrinogen dRVVT Confirm Interp Factor V Activity POC ABG pH POC ABG pCO2 POC ABG pO2 ABG pO2 ABG HCO3 ABG Base Excess ABG Hemoglobin Oxyhemoglobin Sodium Potassium Chloride Carbon Dioxide BUN Creatinine Glucose POC Glucose 197 H 169 H Lactic Acid Calcium Phosphorus Magnesium Direct Bilirubin AST ALT Alkaline Phosphatase Lactate Dehydrogenase Troponin T C-Reactive Protein Total Protein Albumin Prealbumin Triglycerides Cholesterol LDL Cholesterol Direct HDL Cholesterol Urine pH Urine WBC (Auto) Urine Creatinine Urine Total Protein Fluid Total Protein Vancomycin Trough Rheumatoid Factor Complement C4 Miscellaneous Test Crossmatch 09/23/16 09/23/16 09/23/16 05:00 05:00 05:10 WBC RBC Hgb Hct MCV MCH MCHC RDW Plt Count Lymph % (Auto) [place] % (Auto) Lymph # [place] # Baso # Seg Neutrophils % Seg Neuts % (Manual) Lymphocytes % (Manual) Monocytes % (Manual) Eosinophils % (Manual) Basophils % (Manual) Nucleated RBC % Seg Neutrophils # Seg Neutrophils # Man Lymphocytes # (Manual) Monocytes # (Manual) Eosinophils # (Manual) PT INR Fibrinogen dRVVT Confirm Interp Factor V Activity POC ABG pH POC ABG pCO2 POC ABG pO2 ABG pO2 ABG HCO3 ABG Base Excess ABG Hemoglobin Oxyhemoglobin Sodium 147 H Potassium 3.2 L Chloride 115.7 H Carbon Dioxide 13 L BUN 111 H Creatinine 3.8 H Glucose 194 H POC Glucose 188 H Lactic Acid Calcium 7.3 L D Phosphorus Magnesium Direct Bilirubin AST ALT Alkaline Phosphatase Lactate Dehydrogenase Troponin T C-Reactive Protein 3.20 H Total Protein Albumin Prealbumin Triglycerides Cholesterol LDL Cholesterol Direct HDL Cholesterol Urine pH Urine WBC (Auto) Urine Creatinine Urine Total Protein Fluid Total Protein Vancomycin Trough Rheumatoid Factor Complement C4 Miscellaneous Test Crossmatch 09/23/16 09/23/16 09/23/16 11:37 12:29 18:01 WBC RBC Hgb Hct MCV MCH MCHC RDW Plt Count Lymph % (Auto) [place] % (Auto) Lymph # [place] # Baso # Seg Neutrophils % Seg Neuts % (Manual) Lymphocytes % (Manual) Monocytes % (Manual) Eosinophils % (Manual) Basophils % (Manual) Nucleated RBC % Seg Neutrophils # Seg Neutrophils # Man Lymphocytes # (Manual) Monocytes # (Manual) Eosinophils # (Manual) PT INR Fibrinogen dRVVT Confirm Interp Factor V Activity POC ABG pH POC ABG pCO2 18.9 L POC ABG pO2 143 H ABG pO2 ABG HCO3 ABG Base Excess ABG Hemoglobin Oxyhemoglobin Sodium Potassium Chloride Carbon Dioxide BUN Creatinine Glucose POC Glucose 153 H 108 H Lactic Acid Calcium Phosphorus Magnesium Direct Bilirubin AST ALT Alkaline Phosphatase Lactate Dehydrogenase Troponin T C-Reactive Protein Total Protein Albumin Prealbumin Triglycerides Cholesterol LDL Cholesterol Direct HDL Cholesterol Urine pH Urine WBC (Auto) Urine Creatinine Urine Total Protein Fluid Total Protein Vancomycin Trough Rheumatoid Factor Complement C4 Miscellaneous Test Crossmatch 09/23/16 09/23/16 09/24/16 21:19 23:43 05:16 WBC RBC Hgb Hct MCV MCH MCHC RDW Plt Count Lymph % (Auto) [place] % (Auto) Lymph # [place] # Baso # Seg Neutrophils % Seg Neuts % (Manual) Lymphocytes % (Manual) Monocytes % (Manual) Eosinophils % (Manual) Basophils % (Manual) Nucleated RBC % Seg Neutrophils # Seg Neutrophils # Man Lymphocytes # (Manual) Monocytes # (Manual) Eosinophils # (Manual) PT INR Fibrinogen dRVVT Confirm Interp Factor V Activity POC ABG pH POC ABG pCO2 17.3 L POC ABG pO2 112 H ABG pO2 ABG HCO3 ABG Base Excess ABG Hemoglobin Oxyhemoglobin Sodium Potassium Chloride Carbon Dioxide BUN Creatinine Glucose POC Glucose 143 H 164 H Lactic Acid Calcium Phosphorus Magnesium Direct Bilirubin AST ALT Alkaline Phosphatase Lactate Dehydrogenase Troponin T C-Reactive Protein Total Protein Albumin Prealbumin Triglycerides Cholesterol LDL Cholesterol Direct HDL Cholesterol Urine pH Urine WBC (Auto) Urine Creatinine Urine Total Protein Fluid Total Protein Vancomycin Trough Rheumatoid Factor Complement C4 Miscellaneous Test Crossmatch 09/24/16 09/24/16 09/24/16 05:21 11:58 17:06 WBC RBC Hgb Hct MCV MCH MCHC RDW Plt Count Lymph % (Auto) [place] % (Auto) Lymph # [place] # Baso # Seg Neutrophils % Seg Neuts % (Manual) Lymphocytes % (Manual) Monocytes % (Manual) Eosinophils % (Manual) Basophils % (Manual) Nucleated RBC % Seg Neutrophils # Seg Neutrophils # Man Lymphocytes # (Manual) Monocytes # (Manual) Eosinophils # (Manual) PT INR Fibrinogen dRVVT Confirm Interp Factor V Activity POC ABG pH POC ABG pCO2 POC ABG pO2 ABG pO2 ABG HCO3 ABG Base Excess ABG Hemoglobin Oxyhemoglobin Sodium Potassium Chloride Carbon Dioxide 10 L BUN 103 H Creatinine 4.3 H Glucose 163 H POC Glucose 173 H 167 H Lactic Acid Calcium 6.5 L Phosphorus Magnesium Direct Bilirubin AST ALT Alkaline Phosphatase Lactate Dehydrogenase Troponin T C-Reactive Protein Total Protein Albumin Prealbumin Triglycerides Cholesterol LDL Cholesterol Direct HDL Cholesterol Urine pH Urine WBC (Auto) Urine Creatinine Urine Total Protein Fluid Total Protein Vancomycin Trough Rheumatoid Factor Complement C4 Miscellaneous Test Crossmatch 09/24/16 09/24/16 09/24/16 20:15 21:02 23:48 WBC RBC Hgb Hct MCV MCH MCHC RDW Plt Count Lymph % (Auto) [place] % (Auto) Lymph # [place] # Baso # Seg Neutrophils % Seg Neuts % (Manual) Lymphocytes % (Manual) Monocytes % (Manual) Eosinophils % (Manual) Basophils % (Manual) Nucleated RBC % Seg Neutrophils # Seg Neutrophils # Man Lymphocytes # (Manual) Monocytes # (Manual) Eosinophils # (Manual) PT INR Fibrinogen dRVVT Confirm Interp Factor V Activity POC ABG pH 7.288 L POC ABG pCO2 30.2 L 21.5 L POC ABG pO2 32 L 39 L ABG pO2 ABG HCO3 ABG Base Excess ABG Hemoglobin Oxyhemoglobin Sodium Potassium Chloride Carbon Dioxide BUN Creatinine Glucose POC Glucose 109 H Lactic Acid Calcium Phosphorus Magnesium Direct Bilirubin AST ALT Alkaline Phosphatase Lactate Dehydrogenase Troponin T C-Reactive Protein Total Protein Albumin Prealbumin Triglycerides Cholesterol LDL Cholesterol Direct HDL Cholesterol Urine pH Urine WBC (Auto) Urine Creatinine Urine Total Protein Fluid Total Protein Vancomycin Trough Rheumatoid Factor Complement C4 Miscellaneous Test Crossmatch 09/25/16 09/25/16 09/25/16 04:20 04:20 04:20 WBC RBC 2.58 L Hgb 7.0 L Hct 21.0 L MCV MCH 27 L MCHC RDW 23.8 H Plt Count Lymph % (Auto) [place] % (Auto) Lymph # [place] # Baso # Seg Neutrophils % Seg Neuts % (Manual) Lymphocytes % (Manual) 12.0 L Monocytes % (Manual) Eosinophils % (Manual) 7.0 H Basophils % (Manual) 2.0 H Nucleated RBC % Seg Neutrophils # Seg Neutrophils # Man Lymphocytes # (Manual) 0.9 L Monocytes # (Manual) Eosinophils # (Manual) 0.5 H PT INR Fibrinogen dRVVT Confirm Interp Factor V Activity POC ABG pH POC ABG pCO2 POC ABG pO2 ABG pO2 ABG HCO3 ABG Base Excess ABG Hemoglobin Oxyhemoglobin Sodium Potassium Chloride Carbon Dioxide 15 L BUN 72 H Creatinine 3.8 H Glucose POC Glucose Lactic Acid Calcium 6.0 L Phosphorus 4.60 H Magnesium 1.60 L Direct Bilirubin AST ALT Alkaline Phosphatase Lactate Dehydrogenase Troponin T C-Reactive Protein Total Protein Albumin Prealbumin Triglycerides Cholesterol LDL Cholesterol Direct HDL Cholesterol Urine pH Urine WBC (Auto) Urine Creatinine Urine Total Protein Fluid Total Protein Vancomycin Trough Rheumatoid Factor Complement C4 Miscellaneous Test Crossmatch 09/25/16 09/25/16 09/25/16 04:57 08:02 10:30 WBC RBC Hgb Hct MCV MCH MCHC RDW Plt Count Lymph % (Auto) [place] % (Auto) Lymph # [place] # Baso # Seg Neutrophils % Seg Neuts % (Manual) Lymphocytes % (Manual) Monocytes % (Manual) Eosinophils % (Manual) Basophils % (Manual) Nucleated RBC % Seg Neutrophils # Seg Neutrophils # Man Lymphocytes # (Manual) Monocytes # (Manual) Eosinophils # (Manual) PT INR Fibrinogen dRVVT Confirm Interp Factor V Activity POC ABG pH POC ABG pCO2 24.7 L POC ABG pO2 152 H ABG pO2 ABG HCO3 ABG Base Excess ABG Hemoglobin Oxyhemoglobin Sodium Potassium Chloride Carbon Dioxide BUN Creatinine Glucose POC Glucose 113 H Lactic Acid Calcium Phosphorus Magnesium Direct Bilirubin AST ALT Alkaline Phosphatase Lactate Dehydrogenase Troponin T C-Reactive Protein Total Protein Albumin Prealbumin Triglycerides Cholesterol LDL Cholesterol Direct HDL Cholesterol Urine pH Urine WBC (Auto) Urine Creatinine Urine Total Protein Fluid Total Protein Vancomycin Trough Rheumatoid Factor Complement C4 Miscellaneous Test Crossmatch See Detail 09/25/16 09/25/16 09/25/16 12:05 17:44 23:47 WBC RBC Hgb Hct MCV MCH MCHC RDW Plt Count Lymph % (Auto) [place] % (Auto) Lymph # [place] # Baso # Seg Neutrophils % Seg Neuts % (Manual) Lymphocytes % (Manual) Monocytes % (Manual) Eosinophils % (Manual) Basophils % (Manual) Nucleated RBC % Seg Neutrophils # Seg Neutrophils # Man Lymphocytes # (Manual) Monocytes # (Manual) Eosinophils # (Manual) PT INR Fibrinogen dRVVT Confirm Interp Factor V Activity POC ABG pH POC ABG pCO2 POC ABG pO2 ABG pO2 ABG HCO3 ABG Base Excess ABG Hemoglobin Oxyhemoglobin Sodium Potassium Chloride Carbon Dioxide BUN Creatinine Glucose POC Glucose 117 H 119 H 150 H Lactic Acid Calcium Phosphorus Magnesium Direct Bilirubin AST ALT Alkaline Phosphatase Lactate Dehydrogenase Troponin T C-Reactive Protein Total Protein Albumin Prealbumin Triglycerides Cholesterol LDL Cholesterol Direct HDL Cholesterol Urine pH Urine WBC (Auto) Urine Creatinine Urine Total Protein Fluid Total Protein Vancomycin Trough Rheumatoid Factor Complement C4 Miscellaneous Test Crossmatch 09/26/16 09/26/16 09/26/16 04:25 04:25 04:25 WBC RBC 2.65 L Hgb 7.4 L Hct 21.6 L MCV MCH MCHC RDW 22.5 H Plt Count Lymph % (Auto) [place] % (Auto) Lymph # [place] # Baso # Seg Neutrophils % Seg Neuts % (Manual) Lymphocytes % (Manual) 6.0 L Monocytes % (Manual) Eosinophils % (Manual) 11.0 H Basophils % (Manual) Nucleated RBC % Seg Neutrophils # Seg Neutrophils # Man Lymphocytes # (Manual) 0.4 L Monocytes # (Manual) Eosinophils # (Manual) 0.6 H PT INR Fibrinogen dRVVT Confirm Interp Factor V Activity POC ABG pH POC ABG pCO2 POC ABG pO2 ABG pO2 ABG HCO3 ABG Base Excess ABG Hemoglobin Oxyhemoglobin Sodium Potassium Chloride 97.0 L Carbon Dioxide 19 L BUN 43 H Creatinine 2.6 H Glucose 130 H POC Glucose Lactic Acid 4.40 H* Calcium 6.7 L Phosphorus Magnesium Direct Bilirubin AST ALT Alkaline Phosphatase Lactate Dehydrogenase Troponin T C-Reactive Protein Total Protein Albumin Prealbumin Triglycerides Cholesterol LDL Cholesterol Direct HDL Cholesterol Urine pH Urine WBC (Auto) Urine Creatinine Urine Total Protein Fluid Total Protein Vancomycin Trough Rheumatoid Factor Complement C4 Miscellaneous Test Crossmatch 09/26/16 09/26/16 09/26/16 05:20 11:44 12:12 WBC RBC Hgb Hct MCV MCH MCHC RDW Plt Count Lymph % (Auto) [place] % (Auto) Lymph # [place] # Baso # Seg Neutrophils % Seg Neuts % (Manual) Lymphocytes % (Manual) Monocytes % (Manual) Eosinophils % (Manual) Basophils % (Manual) Nucleated RBC % Seg Neutrophils # Seg Neutrophils # Man Lymphocytes # (Manual) Monocytes # (Manual) Eosinophils # (Manual) PT INR Fibrinogen dRVVT Confirm Interp Factor V Activity POC ABG pH POC ABG pCO2 27.0 L POC ABG pO2 69 L ABG pO2 ABG HCO3 ABG Base Excess ABG Hemoglobin Oxyhemoglobin Sodium Potassium Chloride Carbon Dioxide BUN Creatinine Glucose POC Glucose 121 H 128 H Lactic Acid Calcium Phosphorus Magnesium Direct Bilirubin AST ALT Alkaline Phosphatase Lactate Dehydrogenase Troponin T C-Reactive Protein Total Protein Albumin Prealbumin Triglycerides Cholesterol LDL Cholesterol Direct HDL Cholesterol Urine pH Urine WBC (Auto) Urine Creatinine Urine Total Protein Fluid Total Protein Vancomycin Trough Rheumatoid Factor Complement C4 Miscellaneous Test Crossmatch 09/26/16 09/26/16 09/27/16 18:31 23:40 08:20 WBC RBC Hgb Hct MCV MCH MCHC RDW Plt Count Lymph % (Auto) [place] % (Auto) Lymph # [place] # Baso # Seg Neutrophils % Seg Neuts % (Manual) Lymphocytes % (Manual) Monocytes % (Manual) Eosinophils % (Manual) Basophils % (Manual) Nucleated RBC % Seg Neutrophils # Seg Neutrophils # Man Lymphocytes # (Manual) Monocytes # (Manual) Eosinophils # (Manual) PT INR Fibrinogen dRVVT Confirm Interp Factor V Activity POC ABG pH POC ABG pCO2 POC ABG pO2 ABG pO2 ABG HCO3 ABG Base Excess ABG Hemoglobin Oxyhemoglobin Sodium Potassium Chloride Carbon Dioxide BUN Creatinine Glucose POC Glucose 120 H 133 H Lactic Acid 4.10 H* Calcium Phosphorus Magnesium Direct Bilirubin AST ALT Alkaline Phosphatase Lactate Dehydrogenase Troponin T C-Reactive Protein Total Protein Albumin Prealbumin Triglycerides Cholesterol LDL Cholesterol Direct HDL Cholesterol Urine pH Urine WBC (Auto) Urine Creatinine Urine Total Protein Fluid Total Protein Vancomycin Trough Rheumatoid Factor Complement C4 Miscellaneous Test Crossmatch 09/27/16 09/27/16 09/27/16 11:23 15:00 18:15 WBC RBC Hgb Hct MCV MCH MCHC RDW Plt Count Lymph % (Auto) [place] % (Auto) Lymph # [place] # Baso # Seg Neutrophils % Seg Neuts % (Manual) Lymphocytes % (Manual) Monocytes % (Manual) Eosinophils % (Manual) Basophils % (Manual) Nucleated RBC % Seg Neutrophils # Seg Neutrophils # Man Lymphocytes # (Manual) Monocytes # (Manual) Eosinophils # (Manual) PT INR Fibrinogen dRVVT Confirm Interp Factor V Activity POC ABG pH 7.459 H POC ABG pCO2 27.1 L POC ABG pO2 140 H ABG pO2 ABG HCO3 ABG Base Excess ABG Hemoglobin Oxyhemoglobin Sodium Potassium Chloride Carbon Dioxide BUN Creatinine Glucose POC Glucose 114 H 127 H Lactic Acid Calcium Phosphorus Magnesium Direct Bilirubin AST ALT Alkaline Phosphatase Lactate Dehydrogenase Troponin T C-Reactive Protein Total Protein Albumin Prealbumin Triglycerides Cholesterol LDL Cholesterol Direct HDL Cholesterol Urine pH Urine WBC (Auto) Urine Creatinine Urine Total Protein Fluid Total Protein Vancomycin Trough Rheumatoid Factor Complement C4 Miscellaneous Test Crossmatch 09/27/16 09/27/16 09/28/16 Unknown Unknown 03:45 WBC RBC 2.49 L Hgb 6.8 L Hct 20.7 L MCV MCH 27 L MCHC RDW 22.1 H Plt Count Lymph % (Auto) [place] % (Auto) Lymph # [place] # Baso # Seg Neutrophils % Seg Neuts % (Manual) 32.0 L Lymphocytes % (Manual) 12.0 L Monocytes % (Manual) 11.0 H Eosinophils % (Manual) 10.0 H Basophils % (Manual) Nucleated RBC % Seg Neutrophils # Seg Neutrophils # Man Lymphocytes # (Manual) 1.0 L Monocytes # (Manual) 0.9 H Eosinophils # (Manual) 0.8 H PT INR Fibrinogen dRVVT Confirm Interp Factor V Activity POC ABG pH POC ABG pCO2 POC ABG pO2 ABG pO2 ABG HCO3 ABG Base Excess ABG Hemoglobin Oxyhemoglobin Sodium 135 L 135 L Potassium 3.5 L Chloride 93.6 L 94.4 L Carbon Dioxide 17 L 21 L BUN 45 H 28 H Creatinine 3.3 H 2.5 H Glucose 106 H POC Glucose Lactic Acid Calcium 7.3 L 7.1 L Phosphorus Magnesium Direct Bilirubin AST ALT Alkaline Phosphatase Lactate Dehydrogenase Troponin T C-Reactive Protein Total Protein Albumin Prealbumin Triglycerides Cholesterol LDL Cholesterol Direct HDL Cholesterol Urine pH Urine WBC (Auto) Urine Creatinine Urine Total Protein Fluid Total Protein Vancomycin Trough Rheumatoid Factor Complement C4 Miscellaneous Test Crossmatch 09/28/16 09/28/16 09/28/16 03:45 07:25 11:58 WBC 13.3 H RBC 3.01 L Hgb 8.4 L Hct 25.0 L MCV MCH MCHC RDW 20.5 H Plt Count 128 L Lymph % (Auto) [place] % (Auto) Lymph # [place] # Baso # Seg Neutrophils % Seg Neuts % (Manual) Lymphocytes % (Manual) 7.0 L Monocytes % (Manual) Eosinophils % (Manual) 6.0 H Basophils % (Manual) Nucleated RBC % Seg Neutrophils # Seg Neutrophils # Man Lymphocytes # (Manual) 0.9 L Monocytes # (Manual) Eosinophils # (Manual) 0.8 H PT INR Fibrinogen dRVVT Confirm Interp Factor V Activity POC ABG pH POC ABG pCO2 POC ABG pO2 ABG pO2 ABG HCO3 ABG Base Excess ABG Hemoglobin Oxyhemoglobin Sodium Potassium Chloride Carbon Dioxide BUN Creatinine Glucose POC Glucose 121 H Lactic Acid 4.50 H* Calcium Phosphorus Magnesium Direct Bilirubin AST ALT Alkaline Phosphatase Lactate Dehydrogenase Troponin T C-Reactive Protein Total Protein Albumin Prealbumin Triglycerides Cholesterol LDL Cholesterol Direct HDL Cholesterol Urine pH Urine WBC (Auto) Urine Creatinine Urine Total Protein Fluid Total Protein Vancomycin Trough Rheumatoid Factor Complement C4 Miscellaneous Test Crossmatch 09/29/16 09/29/16 09/29/16 06:45 06:45 06:45 WBC 14.9 H RBC 2.74 L Hgb 7.6 L Hct 23.2 L MCV MCH MCHC RDW 20.5 H Plt Count 81 L Lymph % (Auto) [place] % (Auto) Lymph # [place] # Baso # Seg Neutrophils % Seg Neuts % (Manual) 81.0 H Lymphocytes % (Manual) 4.0 L Monocytes % (Manual) Eosinophils % (Manual) Basophils % (Manual) Nucleated RBC % Seg Neutrophils # Seg Neutrophils # Man 12.1 H Lymphocytes # (Manual) 0.6 L Monocytes # (Manual) Eosinophils # (Manual) PT INR Fibrinogen dRVVT Confirm Interp Factor V Activity POC ABG pH POC ABG pCO2 POC ABG pO2 ABG pO2 ABG HCO3 ABG Base Excess ABG Hemoglobin Oxyhemoglobin Sodium 133 L Potassium 3.4 L Chloride 92.5 L Carbon Dioxide 21 L BUN 33 H Creatinine 3.0 H Glucose POC Glucose Lactic Acid Calcium 6.6 L Phosphorus Magnesium 1.40 L Direct Bilirubin 0.9 H AST ALT Alkaline Phosphatase Lactate Dehydrogenase Troponin T C-Reactive Protein Total Protein 4.3 L Albumin 1.3 L Prealbumin Triglycerides Cholesterol LDL Cholesterol Direct HDL Cholesterol Urine pH Urine WBC (Auto) Urine Creatinine Urine Total Protein Fluid Total Protein Vancomycin Trough Rheumatoid Factor Complement C4 Miscellaneous Test Crossmatch 09/29/16 09/29/16 09/30/16 17:52 20:12 00:07 WBC RBC Hgb Hct MCV MCH MCHC RDW Plt Count Lymph % (Auto) [place] % (Auto) Lymph # [place] # Baso # Seg Neutrophils % Seg Neuts % (Manual) Lymphocytes % (Manual) Monocytes % (Manual) Eosinophils % (Manual) Basophils % (Manual) Nucleated RBC % Seg Neutrophils # Seg Neutrophils # Man Lymphocytes # (Manual) Monocytes # (Manual) Eosinophils # (Manual) PT INR Fibrinogen dRVVT Confirm Interp Factor V Activity POC ABG pH POC ABG pCO2 POC ABG pO2 ABG pO2 ABG HCO3 ABG Base Excess ABG Hemoglobin Oxyhemoglobin Sodium Potassium Chloride Carbon Dioxide BUN Creatinine Glucose POC Glucose 50 L 51 L Lactic Acid Calcium Phosphorus Magnesium Direct Bilirubin AST ALT Alkaline Phosphatase Lactate Dehydrogenase Troponin T 0.204 H* C-Reactive Protein Total Protein Albumin Prealbumin Triglycerides Cholesterol 31 L LDL Cholesterol Direct 4 L HDL Cholesterol 3 L Urine pH Urine WBC (Auto) Urine Creatinine Urine Total Protein Fluid Total Protein Vancomycin Trough Rheumatoid Factor Complement C4 Miscellaneous Test Crossmatch 09/30/16 09/30/16 09/30/16 01:30 05:15 06:10 WBC RBC Hgb Hct MCV MCH MCHC RDW Plt Count Lymph % (Auto) [place] % (Auto) Lymph # [place] # Baso # Seg Neutrophils % Seg Neuts % (Manual) Lymphocytes % (Manual) Monocytes % (Manual) Eosinophils % (Manual) Basophils % (Manual) Nucleated RBC % Seg Neutrophils # Seg Neutrophils # Man Lymphocytes # (Manual) Monocytes # (Manual) Eosinophils # (Manual) PT INR Fibrinogen dRVVT Confirm Interp Factor V Activity POC ABG pH POC ABG pCO2 POC ABG pO2 ABG pO2 ABG HCO3 ABG Base Excess ABG Hemoglobin Oxyhemoglobin Sodium 133 L Potassium 3.2 L Chloride 93.2 L Carbon Dioxide 19 L BUN 36 H Creatinine 3.2 H Glucose 104 H POC Glucose 167 H 146 H Lactic Acid Calcium 6.4 L Phosphorus Magnesium 1.60 L Direct Bilirubin AST ALT Alkaline Phosphatase Lactate Dehydrogenase Troponin T C-Reactive Protein Total Protein Albumin Prealbumin Triglycerides Cholesterol LDL Cholesterol Direct HDL Cholesterol Urine pH Urine WBC (Auto) Urine Creatinine Urine Total Protein Fluid Total Protein Vancomycin Trough Rheumatoid Factor Complement C4 Miscellaneous Test Crossmatch 09/30/16 09/30/16 09/30/16 11:26 13:39 18:38 WBC RBC Hgb Hct MCV MCH MCHC RDW Plt Count Lymph % (Auto) [place] % (Auto) Lymph # [place] # Baso # Seg Neutrophils % Seg Neuts % (Manual) Lymphocytes % (Manual) Monocytes % (Manual) Eosinophils % (Manual) Basophils % (Manual) Nucleated RBC % Seg Neutrophils # Seg Neutrophils # Man Lymphocytes # (Manual) Monocytes # (Manual) Eosinophils # (Manual) PT INR Fibrinogen dRVVT Confirm Interp Factor V Activity POC ABG pH 7.479 H POC ABG pCO2 29.8 L POC ABG pO2 117 H ABG pO2 ABG HCO3 ABG Base Excess ABG Hemoglobin Oxyhemoglobin Sodium Potassium Chloride Carbon Dioxide BUN Creatinine Glucose POC Glucose 140 H 122 H Lactic Acid Calcium Phosphorus Magnesium Direct Bilirubin AST ALT Alkaline Phosphatase Lactate Dehydrogenase Troponin T C-Reactive Protein Total Protein Albumin Prealbumin Triglycerides Cholesterol LDL Cholesterol Direct HDL Cholesterol Urine pH Urine WBC (Auto) Urine Creatinine Urine Total Protein Fluid Total Protein Vancomycin Trough Rheumatoid Factor Complement C4 Miscellaneous Test Crossmatch 10/01/16 10/01/16 10/01/16 06:00 06:00 12:37 WBC 12.6 H RBC 2.75 L Hgb 7.3 L Hct 23.3 L MCV MCH 27 L MCHC RDW 20.6 H Plt Count 72 L Lymph % (Auto) [place] % (Auto) Lymph # [place] # Baso # Seg Neutrophils % Seg Neuts % (Manual) 31.0 L Lymphocytes % (Manual) 8.0 L Monocytes % (Manual) Eosinophils % (Manual) Basophils % (Manual) Nucleated RBC % 3.0 H Seg Neutrophils # Seg Neutrophils # Man Lymphocytes # (Manual) 1.0 L Monocytes # (Manual) Eosinophils # (Manual) PT INR Fibrinogen dRVVT Confirm Interp Factor V Activity POC ABG pH POC ABG pCO2 POC ABG pO2 ABG pO2 ABG HCO3 ABG Base Excess ABG Hemoglobin Oxyhemoglobin Sodium 127 L Potassium Chloride 86.8 L Carbon Dioxide 20 L BUN 42 H Creatinine 3.5 H Glucose POC Glucose 65 L Lactic Acid Calcium 7.0 L Phosphorus Magnesium Direct Bilirubin AST ALT Alkaline Phosphatase Lactate Dehydrogenase Troponin T C-Reactive Protein Total Protein Albumin Prealbumin Triglycerides Cholesterol LDL Cholesterol Direct HDL Cholesterol Urine pH Urine WBC (Auto) Urine Creatinine Urine Total Protein Fluid Total Protein Vancomycin Trough Rheumatoid Factor Complement C4 Miscellaneous Test Crossmatch 10/01/16 10/01/16 10/02/16 17:39 23:32 00:59 WBC RBC Hgb Hct MCV MCH MCHC RDW Plt Count Lymph % (Auto) [place] % (Auto) Lymph # [place] # Baso # Seg Neutrophils % Seg Neuts % (Manual) Lymphocytes % (Manual) Monocytes % (Manual) Eosinophils % (Manual) Basophils % (Manual) Nucleated RBC % Seg Neutrophils # Seg Neutrophils # Man Lymphocytes # (Manual) Monocytes # (Manual) Eosinophils # (Manual) PT INR Fibrinogen dRVVT Confirm Interp Factor V Activity POC ABG pH POC ABG pCO2 POC ABG pO2 ABG pO2 ABG HCO3 ABG Base Excess ABG Hemoglobin Oxyhemoglobin Sodium Potassium Chloride Carbon Dioxide BUN Creatinine Glucose POC Glucose 107 H 52 L 145 H Lactic Acid Calcium Phosphorus Magnesium Direct Bilirubin AST ALT Alkaline Phosphatase Lactate Dehydrogenase Troponin T C-Reactive Protein Total Protein Albumin Prealbumin Triglycerides Cholesterol LDL Cholesterol Direct HDL Cholesterol Urine pH Urine WBC (Auto) Urine Creatinine Urine Total Protein Fluid Total Protein Vancomycin Trough Rheumatoid Factor Complement C4 Miscellaneous Test Crossmatch 10/02/16 10/02/16 10/02/16 10:30 10:50 10:50 WBC 14.7 H RBC 2.76 L Hgb 7.4 L Hct 23.6 L MCV MCH 27 L MCHC RDW 20.2 H Plt Count 79 L Lymph % (Auto) [place] % (Auto) Lymph # [place] # Baso # Seg Neutrophils % Seg Neuts % (Manual) 86.0 H Lymphocytes % (Manual) 6.0 L Monocytes % (Manual) Eosinophils % (Manual) Basophils % (Manual) Nucleated RBC % Seg Neutrophils # Seg Neutrophils # Man 12.6 H Lymphocytes # (Manual) 0.9 L Monocytes # (Manual) Eosinophils # (Manual) PT INR Fibrinogen dRVVT Confirm Interp Factor V Activity POC ABG pH 7.486 H POC ABG pCO2 30.1 L POC ABG pO2 108 H ABG pO2 ABG HCO3 ABG Base Excess ABG Hemoglobin Oxyhemoglobin Sodium 131 L Potassium 3.4 L Chloride 89.9 L Carbon Dioxide BUN 26 H Creatinine 2.6 H Glucose POC Glucose Lactic Acid Calcium 7.0 L Phosphorus Magnesium Direct Bilirubin AST ALT Alkaline Phosphatase Lactate Dehydrogenase Troponin T C-Reactive Protein Total Protein Albumin Prealbumin Triglycerides Cholesterol LDL Cholesterol Direct HDL Cholesterol Urine pH Urine WBC (Auto) Urine Creatinine Urine Total Protein Fluid Total Protein Vancomycin Trough Rheumatoid Factor Complement C4 Miscellaneous Test Crossmatch 10/02/16 10/03/16 10/03/16 23:45 00:45 05:10 WBC 12.9 H RBC 2.77 L Hgb 7.6 L Hct 23.7 L MCV MCH 27 L MCHC RDW 19.7 H Plt Count 89 L Lymph % (Auto) [place] % (Auto) Lymph # [place] # Baso # Seg Neutrophils % Seg Neuts % (Manual) Lymphocytes % (Manual) 8.0 L Monocytes % (Manual) Eosinophils % (Manual) Basophils % (Manual) Nucleated RBC % Seg Neutrophils # 11.9 H Seg Neutrophils # Man Lymphocytes # (Manual) 1.0 L Monocytes # (Manual) Eosinophils # (Manual) PT INR Fibrinogen dRVVT Confirm Interp Factor V Activity POC ABG pH POC ABG pCO2 POC ABG pO2 ABG pO2 ABG HCO3 ABG Base Excess ABG Hemoglobin Oxyhemoglobin Sodium Potassium Chloride Carbon Dioxide BUN Creatinine Glucose POC Glucose 55 L 199 H Lactic Acid Calcium Phosphorus Magnesium Direct Bilirubin AST ALT Alkaline Phosphatase Lactate Dehydrogenase Troponin T C-Reactive Protein Total Protein Albumin Prealbumin Triglycerides Cholesterol LDL Cholesterol Direct HDL Cholesterol Urine pH Urine WBC (Auto) Urine Creatinine Urine Total Protein Fluid Total Protein Vancomycin Trough Rheumatoid Factor Complement C4 Miscellaneous Test Crossmatch 10/03/16 10/03/16 10/03/16 05:10 12:14 13:18 WBC RBC Hgb Hct MCV MCH MCHC RDW Plt Count Lymph % (Auto) [place] % (Auto) Lymph # [place] # Baso # Seg Neutrophils % Seg Neuts % (Manual) Lymphocytes % (Manual) Monocytes % (Manual) Eosinophils % (Manual) Basophils % (Manual) Nucleated RBC % Seg Neutrophils # Seg Neutrophils # Man Lymphocytes # (Manual) Monocytes # (Manual) Eosinophils # (Manual) PT INR Fibrinogen dRVVT Confirm Interp Factor V Activity POC ABG pH POC ABG pCO2 POC ABG pO2 ABG pO2 ABG HCO3 ABG Base Excess ABG Hemoglobin Oxyhemoglobin Sodium 129 L Potassium 3.3 L Chloride 88.8 L Carbon Dioxide 20 L BUN 29 H Creatinine 2.8 H Glucose POC Glucose 68 L 127 H Lactic Acid Calcium 7.2 L Phosphorus Magnesium Direct Bilirubin AST ALT Alkaline Phosphatase Lactate Dehydrogenase Troponin T C-Reactive Protein Total Protein Albumin Prealbumin Triglycerides Cholesterol LDL Cholesterol Direct HDL Cholesterol Urine pH Urine WBC (Auto) Urine Creatinine Urine Total Protein Fluid Total Protein Vancomycin Trough Rheumatoid Factor Complement C4 Miscellaneous Test Crossmatch 10/03/16 10/03/16 10/03/16 14:42 18:21 19:09 WBC RBC Hgb Hct MCV MCH MCHC RDW Plt Count Lymph % (Auto) [place] % (Auto) Lymph # [place] # Baso # Seg Neutrophils % Seg Neuts % (Manual) Lymphocytes % (Manual) Monocytes % (Manual) Eosinophils % (Manual) Basophils % (Manual) Nucleated RBC % Seg Neutrophils # Seg Neutrophils # Man Lymphocytes # (Manual) Monocytes # (Manual) Eosinophils # (Manual) PT INR Fibrinogen dRVVT Confirm Interp Factor V Activity POC ABG pH 7.499 H POC ABG pCO2 28.4 L POC ABG pO2 44 L ABG pO2 ABG HCO3 ABG Base Excess ABG Hemoglobin Oxyhemoglobin Sodium Potassium Chloride Carbon Dioxide BUN Creatinine Glucose POC Glucose 64 L 205 H Lactic Acid Calcium Phosphorus Magnesium Direct Bilirubin AST ALT Alkaline Phosphatase Lactate Dehydrogenase Troponin T C-Reactive Protein Total Protein Albumin Prealbumin Triglycerides Cholesterol LDL Cholesterol Direct HDL Cholesterol Urine pH Urine WBC (Auto) Urine Creatinine Urine Total Protein Fluid Total Protein Vancomycin Trough Rheumatoid Factor Complement C4 Miscellaneous Test Crossmatch 10/03/16 10/04/16 10/04/16 23:33 04:18 06:30 WBC RBC 2.54 L Hgb 7.1 L Hct 21.7 L MCV MCH MCHC RDW 19.5 H Plt Count 76 L Lymph % (Auto) [place] % (Auto) Lymph # [place] # Baso # Seg Neutrophils % Seg Neuts % (Manual) 88.0 H Lymphocytes % (Manual) 6.0 L Monocytes % (Manual) Eosinophils % (Manual) Basophils % (Manual) Nucleated RBC % Seg Neutrophils # Seg Neutrophils # Man 8.8 H Lymphocytes # (Manual) 0.6 L Monocytes # (Manual) Eosinophils # (Manual) PT INR Fibrinogen dRVVT Confirm Interp Factor V Activity POC ABG pH 7.461 H POC ABG pCO2 33.6 L POC ABG pO2 211 H ABG pO2 ABG HCO3 ABG Base Excess ABG Hemoglobin Oxyhemoglobin Sodium Potassium Chloride Carbon Dioxide BUN Creatinine Glucose POC Glucose 136 H Lactic Acid Calcium Phosphorus Magnesium Direct Bilirubin AST ALT Alkaline Phosphatase Lactate Dehydrogenase Troponin T C-Reactive Protein Total Protein Albumin Prealbumin Triglycerides Cholesterol LDL Cholesterol Direct HDL Cholesterol Urine pH Urine WBC (Auto) Urine Creatinine Urine Total Protein Fluid Total Protein Vancomycin Trough Rheumatoid Factor Complement C4 Miscellaneous Test Crossmatch 10/04/16 10/04/16 10/04/16 06:30 11:45 17:54 WBC RBC Hgb Hct MCV MCH MCHC RDW Plt Count Lymph % (Auto) [place] % (Auto) Lymph # [place] # Baso # Seg Neutrophils % Seg Neuts % (Manual) Lymphocytes % (Manual) Monocytes % (Manual) Eosinophils % (Manual) Basophils % (Manual) Nucleated RBC % Seg Neutrophils # Seg Neutrophils # Man Lymphocytes # (Manual) Monocytes # (Manual) Eosinophils # (Manual) PT INR Fibrinogen dRVVT Confirm Interp Factor V Activity POC ABG pH POC ABG pCO2 POC ABG pO2 ABG pO2 ABG HCO3 ABG Base Excess ABG Hemoglobin Oxyhemoglobin Sodium 128 L Potassium Chloride 87.4 L Carbon Dioxide 20 L BUN 34 H Creatinine 2.9 H Glucose 127 H POC Glucose 158 H 160 H Lactic Acid Calcium 7.4 L Phosphorus Magnesium Direct Bilirubin AST ALT Alkaline Phosphatase Lactate Dehydrogenase Troponin T C-Reactive Protein Total Protein Albumin Prealbumin Triglycerides Cholesterol LDL Cholesterol Direct HDL Cholesterol Urine pH Urine WBC (Auto) Urine Creatinine Urine Total Protein Fluid Total Protein Vancomycin Trough Rheumatoid Factor Complement C4 Miscellaneous Test Crossmatch 10/04/16 10/05/1617 23:25 04:30 05:00 WBC RBC 2.64 L Hgb 7.5 L Hct 22.6 L MCV MCH MCHC RDW 19.3 H Plt Count 80 L Lymph % (Auto) [place] % (Auto) Lymph # [place] # Baso # Seg Neutrophils % Seg Neuts % (Manual) Lymphocytes % (Manual) 12.0 L Monocytes % (Manual) Eosinophils % (Manual) Basophils % (Manual) Nucleated RBC % Seg Neutrophils # Seg Neutrophils # Man Lymphocytes # (Manual) Monocytes # (Manual) Eosinophils # (Manual) PT INR Fibrinogen dRVVT Confirm Interp Factor V Activity POC ABG pH 7.475 H POC ABG pCO2 33.3 L POC ABG pO2 140 H ABG pO2 ABG HCO3 ABG Base Excess ABG Hemoglobin Oxyhemoglobin Sodium Potassium Chloride Carbon Dioxide BUN Creatinine Glucose POC Glucose 141 H Lactic Acid Calcium Phosphorus Magnesium Direct Bilirubin AST ALT Alkaline Phosphatase Lactate Dehydrogenase Troponin T C-Reactive Protein Total Protein Albumin Prealbumin Triglycerides Cholesterol LDL Cholesterol Direct HDL Cholesterol Urine pH Urine WBC (Auto) Urine Creatinine Urine Total Protein Fluid Total Protein Vancomycin Trough Rheumatoid Factor Complement C4 Miscellaneous Test Crossmatch 10/05/16 10/05/16 10/05/16 05:00 05:09 12:58 WBC RBC Hgb Hct MCV MCH MCHC RDW Plt Count Lymph % (Auto) [place] % (Auto) Lymph # [place] # Baso # Seg Neutrophils % Seg Neuts % (Manual) Lymphocytes % (Manual) Monocytes % (Manual) Eosinophils % (Manual) Basophils % (Manual) Nucleated RBC % Seg Neutrophils # Seg Neutrophils # Man Lymphocytes # (Manual) Monocytes # (Manual) Eosinophils # (Manual) PT INR Fibrinogen dRVVT Confirm Interp Factor V Activity POC ABG pH POC ABG pCO2 POC ABG pO2 ABG pO2 ABG HCO3 ABG Base Excess ABG Hemoglobin Oxyhemoglobin Sodium 131 L Potassium Chloride 94.0 L Carbon Dioxide 20 L BUN 22 H Creatinine 2.0 H Glucose 123 H POC Glucose 166 H 179 H Lactic Acid Calcium 7.7 L Phosphorus 2.20 L D Magnesium Direct Bilirubin AST ALT Alkaline Phosphatase Lactate Dehydrogenase Troponin T C-Reactive Protein Total Protein Albumin Prealbumin Triglycerides Cholesterol LDL Cholesterol Direct HDL Cholesterol Urine pH Urine WBC (Auto) Urine Creatinine Urine Total Protein Fluid Total Protein Vancomycin Trough Rheumatoid Factor Complement C4 Miscellaneous Test Crossmatch 10/05/16 10/05/16 10/05/16 15:50 18:53 23:12 WBC RBC Hgb Hct MCV MCH MCHC RDW Plt Count Lymph % (Auto) [place] % (Auto) Lymph # [place] # Baso # Seg Neutrophils % Seg Neuts % (Manual) Lymphocytes % (Manual) Monocytes % (Manual) Eosinophils % (Manual) Basophils % (Manual) Nucleated RBC % Seg Neutrophils # Seg Neutrophils # Man Lymphocytes # (Manual) Monocytes # (Manual) Eosinophils # (Manual) PT INR Fibrinogen dRVVT Confirm Interp Factor V Activity POC ABG pH POC ABG pCO2 POC ABG pO2 ABG pO2 ABG HCO3 ABG Base Excess ABG Hemoglobin Oxyhemoglobin Sodium Potassium Chloride Carbon Dioxide BUN Creatinine Glucose POC Glucose 150 H 164 H Lactic Acid Calcium Phosphorus Magnesium Direct Bilirubin AST ALT Alkaline Phosphatase Lactate Dehydrogenase Troponin T C-Reactive Protein Total Protein Albumin Prealbumin Triglycerides Cholesterol LDL Cholesterol Direct HDL Cholesterol Urine pH Urine WBC (Auto) Urine Creatinine Urine Total Protein Fluid Total Protein Vancomycin Trough Rheumatoid Factor Complement C4 Miscellaneous Test Crossmatch See Detail 10/06/16 10/06/16 10/06/16 03:50 03:50 04:53 WBC RBC 3.00 L Hgb 8.6 L Hct 25.8 L MCV MCH MCHC RDW 17.9 H Plt Count 65 L Lymph % (Auto) [place] % (Auto) Lymph # [place] # Baso # Seg Neutrophils % Seg Neuts % (Manual) 30.0 L Lymphocytes % (Manual) 5.0 L Monocytes % (Manual) Eosinophils % (Manual) Basophils % (Manual) Nucleated RBC % Seg Neutrophils # Seg Neutrophils # Man Lymphocytes # (Manual) 0.4 L Monocytes # (Manual) Eosinophils # (Manual) PT INR Fibrinogen dRVVT Confirm Interp Factor V Activity POC ABG pH 7.310 L POC ABG pCO2 49.0 H POC ABG pO2 ABG pO2 ABG HCO3 ABG Base Excess ABG Hemoglobin Oxyhemoglobin Sodium 133 L Potassium Chloride 95.9 L Carbon Dioxide BUN 26 H Creatinine 2.0 H Glucose 116 H POC Glucose Lactic Acid Calcium 7.8 L Phosphorus Magnesium Direct Bilirubin AST ALT Alkaline Phosphatase Lactate Dehydrogenase Troponin T C-Reactive Protein Total Protein Albumin Prealbumin Triglycerides Cholesterol LDL Cholesterol Direct HDL Cholesterol Urine pH Urine WBC (Auto) Urine Creatinine Urine Total Protein Fluid Total Protein Vancomycin Trough Rheumatoid Factor Complement C4 Miscellaneous Test Crossmatch 10/06/16 10/06/16 10/06/16 05:23 11:52 18:34 WBC RBC Hgb Hct MCV MCH MCHC RDW Plt Count Lymph % (Auto) [place] % (Auto) Lymph # [place] # Baso # Seg Neutrophils % Seg Neuts % (Manual) Lymphocytes % (Manual) Monocytes % (Manual) Eosinophils % (Manual) Basophils % (Manual) Nucleated RBC % Seg Neutrophils # Seg Neutrophils # Man Lymphocytes # (Manual) Monocytes # (Manual) Eosinophils # (Manual) PT INR Fibrinogen dRVVT Confirm Interp Factor V Activity POC ABG pH POC ABG pCO2 POC ABG pO2 ABG pO2 ABG HCO3 ABG Base Excess ABG Hemoglobin Oxyhemoglobin Sodium Potassium Chloride Carbon Dioxide BUN Creatinine Glucose POC Glucose 126 H 116 H 129 H Lactic Acid Calcium Phosphorus Magnesium Direct Bilirubin AST ALT Alkaline Phosphatase Lactate Dehydrogenase Troponin T C-Reactive Protein Total Protein Albumin Prealbumin Triglycerides Cholesterol LDL Cholesterol Direct HDL Cholesterol Urine pH Urine WBC (Auto) Urine Creatinine Urine Total Protein Fluid Total Protein Vancomycin Trough Rheumatoid Factor Complement C4 Miscellaneous Test Crossmatch 10/07/16 10/07/16 10/07/16 03:45 05:00 10:00 WBC 17.0 H RBC 2.68 L Hgb 7.3 L Hct 25.3 L MCV MCH 27 L MCHC 29 L RDW 19.6 H Plt Count 74 L Lymph % (Auto) [place] % (Auto) Lymph # [place] # Baso # Seg Neutrophils % Seg Neuts % (Manual) Lymphocytes % (Manual) 12.0 L Monocytes % (Manual) Eosinophils % (Manual) Basophils % (Manual) Nucleated RBC % 4.0 H Seg Neutrophils # Seg Neutrophils # Man 10.7 H Lymphocytes # (Manual) Monocytes # (Manual) Eosinophils # (Manual) PT INR Fibrinogen dRVVT Confirm Interp Factor V Activity POC ABG pH POC ABG pCO2 POC ABG pO2 ABG pO2 ABG HCO3 ABG Base Excess ABG Hemoglobin Oxyhemoglobin Sodium 130 L Potassium 3.2 L Chloride 93.9 L Carbon Dioxide 20 L BUN 44 H Creatinine 2.7 H Glucose 129 H POC Glucose Lactic Acid Calcium 7.4 L Phosphorus Magnesium Direct Bilirubin AST ALT 6 L Alkaline Phosphatase 195 H Lactate Dehydrogenase Troponin T C-Reactive Protein Total Protein 4.9 L Albumin 1.0 L Prealbumin Triglycerides Cholesterol LDL Cholesterol Direct HDL Cholesterol Urine pH Urine WBC (Auto) Urine Creatinine Urine Total Protein Fluid Total Protein Vancomycin Trough Rheumatoid Factor Complement C4 Miscellaneous Test Flexitest 1 H Crossmatch 10/07/16 10/07/16 10/07/16 10:00 11:24 18:10 WBC RBC Hgb Hct MCV MCH MCHC RDW Plt Count Lymph % (Auto) [place] % (Auto) Lymph # [place] # Baso # Seg Neutrophils % Seg Neuts % (Manual) Lymphocytes % (Manual) Monocytes % (Manual) Eosinophils % (Manual) Basophils % (Manual) Nucleated RBC % Seg Neutrophils # Seg Neutrophils # Man Lymphocytes # (Manual) Monocytes # (Manual) Eosinophils # (Manual) PT INR Fibrinogen dRVVT Confirm Interp Factor V Activity POC ABG pH POC ABG pCO2 POC ABG pO2 ABG pO2 ABG HCO3 ABG Base Excess ABG Hemoglobin Oxyhemoglobin Sodium Potassium Chloride Carbon Dioxide BUN Creatinine Glucose POC Glucose 116 H 130 H Lactic Acid Calcium Phosphorus Magnesium Direct Bilirubin AST ALT Alkaline Phosphatase Lactate Dehydrogenase Troponin T C-Reactive Protein 19.40 H Total Protein Albumin Prealbumin Triglycerides Cholesterol LDL Cholesterol Direct HDL Cholesterol Urine pH Urine WBC (Auto) Urine Creatinine Urine Total Protein Fluid Total Protein Vancomycin Trough Rheumatoid Factor Complement C4 Miscellaneous Test Crossmatch 10/07/16 10/08/16 10/08/16 18:30 00:00 04:00 WBC RBC Hgb Hct MCV MCH MCHC RDW Plt Count Lymph % (Auto) [place] % (Auto) Lymph # [place] # Baso # Seg Neutrophils % Seg Neuts % (Manual) Lymphocytes % (Manual) Monocytes % (Manual) Eosinophils % (Manual) Basophils % (Manual) Nucleated RBC % Seg Neutrophils # Seg Neutrophils # Man Lymphocytes # (Manual) Monocytes # (Manual) Eosinophils # (Manual) PT INR Fibrinogen dRVVT Confirm Interp Factor V Activity POC ABG pH POC ABG pCO2 POC ABG pO2 ABG pO2 ABG HCO3 ABG Base Excess ABG Hemoglobin Oxyhemoglobin Sodium 132 L Potassium 3.3 L Chloride 93.6 L Carbon Dioxide 17 L BUN 59 H Creatinine 2.7 H Glucose 121 H POC Glucose 122 H Lactic Acid Calcium 7.6 L Phosphorus Magnesium Direct Bilirubin AST ALT Alkaline Phosphatase Lactate Dehydrogenase Troponin T C-Reactive Protein Total Protein Albumin Prealbumin Triglycerides Cholesterol LDL Cholesterol Direct HDL Cholesterol Urine pH Urine WBC (Auto) > 182.0 H Urine Creatinine Urine Total Protein Fluid Total Protein Vancomycin Trough Rheumatoid Factor Complement C4 Miscellaneous Test Crossmatch 10/08/16 10/08/16 10/08/16 04:30 05:30 11:51 WBC RBC 5.15 H Hgb 14.4 H D Hct 44.5 H D MCV MCH MCHC RDW 19.5 H Plt Count 56 L Lymph % (Auto) [place] % (Auto) Lymph # [place] # Baso # Seg Neutrophils % Seg Neuts % (Manual) 24.0 L Lymphocytes % (Manual) 8.0 L Monocytes % (Manual) Eosinophils % (Manual) Basophils % (Manual) Nucleated RBC % 9.0 H Seg Neutrophils # Seg Neutrophils # Man Lymphocytes # (Manual) 0.7 L Monocytes # (Manual) Eosinophils # (Manual) PT INR Fibrinogen dRVVT Confirm Interp Factor V Activity POC ABG pH POC ABG pCO2 POC ABG pO2 ABG pO2 ABG HCO3 ABG Base Excess ABG Hemoglobin Oxyhemoglobin Sodium Potassium Chloride Carbon Dioxide BUN Creatinine Glucose POC Glucose 125 H 150 H Lactic Acid Calcium Phosphorus Magnesium Direct Bilirubin AST ALT Alkaline Phosphatase Lactate Dehydrogenase Troponin T C-Reactive Protein Total Protein Albumin Prealbumin Triglycerides Cholesterol LDL Cholesterol Direct HDL Cholesterol Urine pH Urine WBC (Auto) Urine Creatinine Urine Total Protein Fluid Total Protein Vancomycin Trough Rheumatoid Factor Complement C4 Miscellaneous Test Crossmatch 10/08/16 10/08/16 10/08/16 12:49 17:07 19:30 WBC RBC Hgb 7.1 L D Hct 22.4 L D MCV MCH MCHC RDW Plt Count Lymph % (Auto) [place] % (Auto) Lymph # [place] # Baso # Seg Neutrophils % Seg Neuts % (Manual) Lymphocytes % (Manual) Monocytes % (Manual) Eosinophils % (Manual) Basophils % (Manual) Nucleated RBC % Seg Neutrophils # Seg Neutrophils # Man Lymphocytes # (Manual) Monocytes # (Manual) Eosinophils # (Manual) PT INR Fibrinogen dRVVT Confirm Interp Factor V Activity POC ABG pH POC ABG pCO2 28.2 L POC ABG pO2 111 H ABG pO2 ABG HCO3 ABG Base Excess ABG Hemoglobin Oxyhemoglobin Sodium Potassium Chloride Carbon Dioxide BUN Creatinine Glucose POC Glucose 145 H Lactic Acid Calcium Phosphorus Magnesium Direct Bilirubin AST ALT Alkaline Phosphatase Lactate Dehydrogenase Troponin T C-Reactive Protein Total Protein Albumin Prealbumin Triglycerides Cholesterol LDL Cholesterol Direct HDL Cholesterol Urine pH Urine WBC (Auto) Urine Creatinine Urine Total Protein Fluid Total Protein Vancomycin Trough Rheumatoid Factor Complement C4 Miscellaneous Test Crossmatch 10/08/16 10/09/16 10/09/16 19:30 03:45 03:45 WBC 12.6 H RBC 2.36 L Hgb 6.7 L Hct 21.1 L MCV MCH MCHC RDW 19.5 H Plt Count 75 L Lymph % (Auto) [place] % (Auto) Lymph # [place] # Baso # Seg Neutrophils % Seg Neuts % (Manual) Lymphocytes % (Manual) Monocytes % (Manual) 10.0 H Eosinophils % (Manual) Basophils % (Manual) Nucleated RBC % 3.0 H Seg Neutrophils # Seg Neutrophils # Man Lymphocytes # (Manual) Monocytes # (Manual) 1.3 H Eosinophils # (Manual) PT 18.0 H INR 1.41 H Fibrinogen dRVVT Confirm Interp Factor V Activity POC ABG pH POC ABG pCO2 POC ABG pO2 ABG pO2 ABG HCO3 ABG Base Excess ABG Hemoglobin Oxyhemoglobin Sodium 135 L Potassium Chloride Carbon Dioxide 17 L BUN 81 H Creatinine 3.2 H Glucose 109 H POC Glucose Lactic Acid Calcium 7.4 L Phosphorus 4.60 H D Magnesium Direct Bilirubin AST ALT Alkaline Phosphatase Lactate Dehydrogenase Troponin T C-Reactive Protein Total Protein Albumin Prealbumin Triglycerides Cholesterol LDL Cholesterol Direct HDL Cholesterol Urine pH Urine WBC (Auto) Urine Creatinine Urine Total Protein Fluid Total Protein Vancomycin Trough Rheumatoid Factor Complement C4 Miscellaneous Test Crossmatch 10/09/16 10/09/16 10/09/16 03:45 05:14 07:20 WBC RBC Hgb Hct MCV MCH MCHC RDW Plt Count Lymph % (Auto) [place] % (Auto) Lymph # [place] # Baso # Seg Neutrophils % Seg Neuts % (Manual) Lymphocytes % (Manual) Monocytes % (Manual) Eosinophils % (Manual) Basophils % (Manual) Nucleated RBC % Seg Neutrophils # Seg Neutrophils # Man Lymphocytes # (Manual) Monocytes # (Manual) Eosinophils # (Manual) PT 19.0 H INR 1.51 H Fibrinogen dRVVT Confirm Interp Factor V Activity POC ABG pH POC ABG pCO2 POC ABG pO2 ABG pO2 ABG HCO3 ABG Base Excess ABG Hemoglobin Oxyhemoglobin Sodium Potassium Chloride Carbon Dioxide BUN Creatinine Glucose POC Glucose 151 H Lactic Acid Calcium Phosphorus Magnesium Direct Bilirubin AST ALT Alkaline Phosphatase Lactate Dehydrogenase Troponin T C-Reactive Protein Total Protein Albumin Prealbumin Triglycerides Cholesterol LDL Cholesterol Direct HDL Cholesterol Urine pH Urine WBC (Auto) Urine Creatinine Urine Total Protein Fluid Total Protein Vancomycin Trough Rheumatoid Factor Complement C4 Miscellaneous Test Crossmatch See Detail 10/09/16 10/09/16 10/09/16 11:46 16:20 16:43 WBC RBC Hgb 7.2 L Hct 22.2 L MCV MCH MCHC RDW Plt Count Lymph % (Auto) [place] % (Auto) Lymph # [place] # Baso # Seg Neutrophils % Seg Neuts % (Manual) Lymphocytes % (Manual) Monocytes % (Manual) Eosinophils % (Manual) Basophils % (Manual) Nucleated RBC % Seg Neutrophils # Seg Neutrophils # Man Lymphocytes # (Manual) Monocytes # (Manual) Eosinophils # (Manual) PT INR Fibrinogen dRVVT Confirm Interp Factor V Activity POC ABG pH POC ABG pCO2 POC ABG pO2 ABG pO2 ABG HCO3 ABG Base Excess ABG Hemoglobin Oxyhemoglobin Sodium Potassium Chloride Carbon Dioxide BUN Creatinine Glucose POC Glucose 133 H 141 H Lactic Acid Calcium Phosphorus Magnesium Direct Bilirubin AST ALT Alkaline Phosphatase Lactate Dehydrogenase Troponin T C-Reactive Protein Total Protein Albumin Prealbumin Triglycerides Cholesterol LDL Cholesterol Direct HDL Cholesterol Urine pH Urine WBC (Auto) Urine Creatinine Urine Total Protein Fluid Total Protein Vancomycin Trough Rheumatoid Factor Complement C4 Miscellaneous Test Crossmatch 10/10/16 10/10/16 10/10/16 05:00 05:00 11:19 WBC 18.5 H RBC 2.19 L Hgb 6.4 L Hct 19.6 L* MCV MCH MCHC RDW 19.3 H Plt Count 93 L Lymph % (Auto) [place] % (Auto) Lymph # [place] # Baso # Seg Neutrophils % Seg Neuts % (Manual) Lymphocytes % (Manual) 10.0 L Monocytes % (Manual) Eosinophils % (Manual) Basophils % (Manual) Nucleated RBC % 4.0 H Seg Neutrophils # Seg Neutrophils # Man 11.3 H Lymphocytes # (Manual) Monocytes # (Manual) Eosinophils # (Manual) PT INR Fibrinogen dRVVT Confirm Interp Factor V Activity POC ABG pH POC ABG pCO2 POC ABG pO2 ABG pO2 ABG HCO3 ABG Base Excess ABG Hemoglobin Oxyhemoglobin Sodium Potassium 5.7 H D Chloride Carbon Dioxide 16 L BUN 94 H Creatinine 3.1 H Glucose 131 H POC Glucose 153 H Lactic Acid Calcium 8.2 L Phosphorus 5.10 H Magnesium 2.40 H Direct Bilirubin 0.3 H AST ALT < 5 L Alkaline Phosphatase 319 H Lactate Dehydrogenase Troponin T C-Reactive Protein Total Protein 5.1 L Albumin 1.0 L Prealbumin Triglycerides Cholesterol LDL Cholesterol Direct HDL Cholesterol Urine pH Urine WBC (Auto) Urine Creatinine Urine Total Protein Fluid Total Protein Vancomycin Trough Rheumatoid Factor Complement C4 Miscellaneous Test Crossmatch 10/10/16 10/10/16 10/11/16 17:50 23:30 04:15 WBC RBC Hgb Hct MCV MCH MCHC RDW Plt Count Lymph % (Auto) [place] % (Auto) Lymph # [place] # Baso # Seg Neutrophils % Seg Neuts % (Manual) Lymphocytes % (Manual) Monocytes % (Manual) Eosinophils % (Manual) Basophils % (Manual) Nucleated RBC % Seg Neutrophils # Seg Neutrophils # Man Lymphocytes # (Manual) Monocytes # (Manual) Eosinophils # (Manual) PT INR Fibrinogen dRVVT Confirm Interp Factor V Activity POC ABG pH POC ABG pCO2 POC ABG pO2 ABG pO2 ABG HCO3 ABG Base Excess ABG Hemoglobin Oxyhemoglobin Sodium Potassium Chloride 96.4 L Carbon Dioxide 21 L BUN 57 H Creatinine 2.1 H Glucose 151 H POC Glucose 146 H 141 H Lactic Acid Calcium 8.3 L Phosphorus Magnesium Direct Bilirubin AST ALT Alkaline Phosphatase Lactate Dehydrogenase Troponin T C-Reactive Protein Total Protein Albumin Prealbumin Triglycerides Cholesterol LDL Cholesterol Direct HDL Cholesterol Urine pH Urine WBC (Auto) Urine Creatinine Urine Total Protein Fluid Total Protein Vancomycin Trough Rheumatoid Factor Complement C4 Miscellaneous Test Crossmatch 10/11/16 10/11/16 10/11/16 04:15 04:15 05:30 WBC 28.3 H RBC 3.12 L Hgb 9.3 L Hct 28.7 L D MCV MCH MCHC RDW 17.7 H Plt Count 128 L Lymph % (Auto) [place] % (Auto) Lymph # [place] # Baso # Seg Neutrophils % Seg Neuts % (Manual) Lymphocytes % (Manual) Monocytes % (Manual) Eosinophils % (Manual) Basophils % (Manual) Nucleated RBC % Seg Neutrophils # Seg Neutrophils # Man Lymphocytes # (Manual) Monocytes # (Manual) Eosinophils # (Manual) PT INR Fibrinogen dRVVT Confirm Interp Factor V Activity POC ABG pH POC ABG pCO2 POC ABG pO2 ABG pO2 ABG HCO3 ABG Base Excess ABG Hemoglobin Oxyhemoglobin Sodium Potassium Chloride Carbon Dioxide BUN Creatinine Glucose POC Glucose 167 H Lactic Acid Calcium Phosphorus Magnesium Direct Bilirubin AST ALT Alkaline Phosphatase Lactate Dehydrogenase Troponin T C-Reactive Protein 15.80 H Total Protein Albumin Prealbumin Triglycerides Cholesterol LDL Cholesterol Direct HDL Cholesterol Urine pH Urine WBC (Auto) Urine Creatinine Urine Total Protein Fluid Total Protein Vancomycin Trough Rheumatoid Factor Complement C4 Miscellaneous Test Crossmatch 10/11/16 10/11/16 10/11/16 11:40 15:49 23:57 WBC RBC Hgb Hct MCV MCH MCHC RDW Plt Count Lymph % (Auto) [place] % (Auto) Lymph # [place] # Baso # Seg Neutrophils % Seg Neuts % (Manual) Lymphocytes % (Manual) Monocytes % (Manual) Eosinophils % (Manual) Basophils % (Manual) Nucleated RBC % Seg Neutrophils # Seg Neutrophils # Man Lymphocytes # (Manual) Monocytes # (Manual) Eosinophils # (Manual) PT INR Fibrinogen dRVVT Confirm Interp Factor V Activity POC ABG pH POC ABG pCO2 POC ABG pO2 ABG pO2 ABG HCO3 ABG Base Excess ABG Hemoglobin Oxyhemoglobin Sodium Potassium Chloride Carbon Dioxide BUN Creatinine Glucose POC Glucose 139 H 168 H 161 H Lactic Acid Calcium Phosphorus Magnesium Direct Bilirubin AST ALT Alkaline Phosphatase Lactate Dehydrogenase Troponin T C-Reactive Protein Total Protein Albumin Prealbumin Triglycerides Cholesterol LDL Cholesterol Direct HDL Cholesterol Urine pH Urine WBC (Auto) Urine Creatinine Urine Total Protein Fluid Total Protein Vancomycin Trough Rheumatoid Factor Complement C4 Miscellaneous Test Crossmatch 10/12/16 10/12/16 10/12/16 04:40 04:40 05:44 WBC 22.5 H RBC 2.88 L Hgb 8.8 L Hct 26.8 L MCV MCH MCHC RDW 17.8 H Plt Count Lymph % (Auto) [place] % (Auto) Lymph # [place] # Baso # Seg Neutrophils % Seg Neuts % (Manual) Lymphocytes % (Manual) Monocytes % (Manual) Eosinophils % (Manual) Basophils % (Manual) Nucleated RBC % Seg Neutrophils # Seg Neutrophils # Man Lymphocytes # (Manual) Monocytes # (Manual) Eosinophils # (Manual) PT INR Fibrinogen dRVVT Confirm Interp Factor V Activity POC ABG pH POC ABG pCO2 POC ABG pO2 ABG pO2 ABG HCO3 ABG Base Excess ABG Hemoglobin Oxyhemoglobin Sodium 134 L Potassium Chloride 93.0 L Carbon Dioxide BUN 74 H Creatinine 2.5 H Glucose 137 H POC Glucose 158 H Lactic Acid Calcium 8.2 L Phosphorus Magnesium Direct Bilirubin AST ALT Alkaline Phosphatase Lactate Dehydrogenase Troponin T C-Reactive Protein Total Protein Albumin Prealbumin Triglycerides Cholesterol LDL Cholesterol Direct HDL Cholesterol Urine pH Urine WBC (Auto) Urine Creatinine Urine Total Protein Fluid Total Protein Vancomycin Trough Rheumatoid Factor Complement C4 Miscellaneous Test Crossmatch 10/12/16 10/12/16 10/12/16 12:27 18:18 23:46 WBC RBC Hgb Hct MCV MCH MCHC RDW Plt Count Lymph % (Auto) [place] % (Auto) Lymph # [place] # Baso # Seg Neutrophils % Seg Neuts % (Manual) Lymphocytes % (Manual) Monocytes % (Manual) Eosinophils % (Manual) Basophils % (Manual) Nucleated RBC % Seg Neutrophils # Seg Neutrophils # Man Lymphocytes # (Manual) Monocytes # (Manual) Eosinophils # (Manual) PT INR Fibrinogen dRVVT Confirm Interp Factor V Activity POC ABG pH POC ABG pCO2 POC ABG pO2 ABG pO2 ABG HCO3 ABG Base Excess ABG Hemoglobin Oxyhemoglobin Sodium Potassium Chloride Carbon Dioxide BUN Creatinine Glucose POC Glucose 153 H 140 H 150 H Lactic Acid Calcium Phosphorus Magnesium Direct Bilirubin AST ALT Alkaline Phosphatase Lactate Dehydrogenase Troponin T C-Reactive Protein Total Protein Albumin Prealbumin Triglycerides Cholesterol LDL Cholesterol Direct HDL Cholesterol Urine pH Urine WBC (Auto) Urine Creatinine Urine Total Protein Fluid Total Protein Vancomycin Trough Rheumatoid Factor Complement C4 Miscellaneous Test Crossmatch 10/13/16 10/13/16 10/13/16 06:22 09:20 12:29 WBC RBC Hgb Hct MCV MCH MCHC RDW Plt Count Lymph % (Auto) [place] % (Auto) Lymph # [place] # Baso # Seg Neutrophils % Seg Neuts % (Manual) Lymphocytes % (Manual) Monocytes % (Manual) Eosinophils % (Manual) Basophils % (Manual) Nucleated RBC % Seg Neutrophils # Seg Neutrophils # Man Lymphocytes # (Manual) Monocytes # (Manual) Eosinophils # (Manual) PT INR Fibrinogen dRVVT Confirm Interp Factor V Activity POC ABG pH POC ABG pCO2 POC ABG pO2 ABG pO2 ABG HCO3 ABG Base Excess ABG Hemoglobin Oxyhemoglobin Sodium Potassium Chloride Carbon Dioxide BUN Creatinine Glucose POC Glucose 165 H 193 H Lactic Acid Calcium Phosphorus Magnesium Direct Bilirubin AST ALT Alkaline Phosphatase Lactate Dehydrogenase Troponin T C-Reactive Protein Total Protein Albumin Prealbumin Triglycerides Cholesterol LDL Cholesterol Direct HDL Cholesterol Urine pH Urine WBC (Auto) Urine Creatinine Urine Total Protein Fluid Total Protein Vancomycin Trough Rheumatoid Factor Complement C4 Miscellaneous Test Flexitest 1 H Crossmatch 10/13/16 10/13/16 10/13/16 18:09 Unknown Unknown WBC 23.4 H RBC 2.83 L Hgb 8.7 L Hct 26.1 L MCV MCH MCHC RDW 18.1 H Plt Count Lymph % (Auto) [place] % (Auto) Lymph # [place] # Baso # Seg Neutrophils % Seg Neuts % (Manual) Lymphocytes % (Manual) Monocytes % (Manual) Eosinophils % (Manual) Basophils % (Manual) Nucleated RBC % Seg Neutrophils # Seg Neutrophils # Man Lymphocytes # (Manual) Monocytes # (Manual) Eosinophils # (Manual) PT INR Fibrinogen dRVVT Confirm Interp Factor V Activity POC ABG pH POC ABG pCO2 POC ABG pO2 ABG pO2 ABG HCO3 ABG Base Excess ABG Hemoglobin Oxyhemoglobin Sodium Potassium Chloride 95.8 L Carbon Dioxide BUN 82 H Creatinine 2.6 H Glucose 152 H POC Glucose 166 H Lactic Acid Calcium Phosphorus Magnesium Direct Bilirubin AST ALT Alkaline Phosphatase Lactate Dehydrogenase Troponin T C-Reactive Protein Total Protein Albumin Prealbumin Triglycerides Cholesterol LDL Cholesterol Direct HDL Cholesterol Urine pH Urine WBC (Auto) Urine Creatinine Urine Total Protein Fluid Total Protein Vancomycin Trough Rheumatoid Factor Complement C4 Miscellaneous Test Crossmatch 10/14/16 10/14/16 10/14/16 05:38 06:35 08:10 WBC 20.7 H RBC 2.81 L Hgb 8.4 L Hct 27.2 L MCV MCH MCHC RDW 19.4 H Plt Count Lymph % (Auto) [place] % (Auto) Lymph # [place] # Baso # Seg Neutrophils % Seg Neuts % (Manual) Lymphocytes % (Manual) Monocytes % (Manual) Eosinophils % (Manual) Basophils % (Manual) Nucleated RBC % Seg Neutrophils # Seg Neutrophils # Man Lymphocytes # (Manual) Monocytes # (Manual) Eosinophils # (Manual) PT INR Fibrinogen dRVVT Confirm Interp Factor V Activity POC ABG pH POC ABG pCO2 POC ABG pO2 ABG pO2 ABG HCO3 ABG Base Excess ABG Hemoglobin Oxyhemoglobin Sodium Potassium Chloride Carbon Dioxide BUN 58 H Creatinine 1.9 H Glucose 169 H POC Glucose 195 H Lactic Acid Calcium Phosphorus Magnesium Direct Bilirubin AST ALT Alkaline Phosphatase Lactate Dehydrogenase Troponin T C-Reactive Protein Total Protein Albumin Prealbumin Triglycerides Cholesterol LDL Cholesterol Direct HDL Cholesterol Urine pH Urine WBC (Auto) Urine Creatinine Urine Total Protein Fluid Total Protein Vancomycin Trough Rheumatoid Factor Complement C4 Miscellaneous Test Crossmatch 10/14/16 10/14/16 10/14/16 11:44 17:13 23:28 WBC RBC Hgb Hct MCV MCH MCHC RDW Plt Count Lymph % (Auto) [place] % (Auto) Lymph # [place] # Baso # Seg Neutrophils % Seg Neuts % (Manual) Lymphocytes % (Manual) Monocytes % (Manual) Eosinophils % (Manual) Basophils % (Manual) Nucleated RBC % Seg Neutrophils # Seg Neutrophils # Man Lymphocytes # (Manual) Monocytes # (Manual) Eosinophils # (Manual) PT INR Fibrinogen dRVVT Confirm Interp Factor V Activity POC ABG pH POC ABG pCO2 POC ABG pO2 ABG pO2 ABG HCO3 ABG Base Excess ABG Hemoglobin Oxyhemoglobin Sodium Potassium Chloride Carbon Dioxide BUN Creatinine Glucose POC Glucose 174 H 121 H 151 H Lactic Acid Calcium Phosphorus Magnesium Direct Bilirubin AST ALT Alkaline Phosphatase Lactate Dehydrogenase Troponin T C-Reactive Protein Total Protein Albumin Prealbumin Triglycerides Cholesterol LDL Cholesterol Direct HDL Cholesterol Urine pH Urine WBC (Auto) Urine Creatinine Urine Total Protein Fluid Total Protein Vancomycin Trough Rheumatoid Factor Complement C4 Miscellaneous Test Crossmatch 10/15/16 10/15/16 10/15/16 05:06 12:26 17:48 WBC RBC Hgb Hct MCV MCH MCHC RDW Plt Count Lymph % (Auto) [place] % (Auto) Lymph # [place] # Baso # Seg Neutrophils % Seg Neuts % (Manual) Lymphocytes % (Manual) Monocytes % (Manual) Eosinophils % (Manual) Basophils % (Manual) Nucleated RBC % Seg Neutrophils # Seg Neutrophils # Man Lymphocytes # (Manual) Monocytes # (Manual) Eosinophils # (Manual) PT INR Fibrinogen dRVVT Confirm Interp Factor V Activity POC ABG pH POC ABG pCO2 POC ABG pO2 ABG pO2 ABG HCO3 ABG Base Excess ABG Hemoglobin Oxyhemoglobin Sodium Potassium Chloride Carbon Dioxide BUN Creatinine Glucose POC Glucose 151 H 149 H 153 H Lactic Acid Calcium Phosphorus Magnesium Direct Bilirubin AST ALT Alkaline Phosphatase Lactate Dehydrogenase Troponin T C-Reactive Protein Total Protein Albumin Prealbumin Triglycerides Cholesterol LDL Cholesterol Direct HDL Cholesterol Urine pH Urine WBC (Auto) Urine Creatinine Urine Total Protein Fluid Total Protein Vancomycin Trough Rheumatoid Factor Complement C4 Miscellaneous Test Crossmatch 10/15/16 10/15/16 10/16/16 Unknown Unknown 00:02 WBC 23.4 H RBC 2.78 L Hgb 8.5 L Hct 25.7 L MCV MCH MCHC RDW 18.7 H Plt Count Lymph % (Auto) [place] % (Auto) Lymph # [place] # Baso # Seg Neutrophils % Seg Neuts % (Manual) Lymphocytes % (Manual) Monocytes % (Manual) Eosinophils % (Manual) Basophils % (Manual) Nucleated RBC % Seg Neutrophils # Seg Neutrophils # Man Lymphocytes # (Manual) Monocytes # (Manual) Eosinophils # (Manual) PT INR Fibrinogen dRVVT Confirm Interp Factor V Activity POC ABG pH POC ABG pCO2 POC ABG pO2 ABG pO2 ABG HCO3 ABG Base Excess ABG Hemoglobin Oxyhemoglobin Sodium Potassium Chloride Carbon Dioxide BUN 73 H Creatinine 2.3 H Glucose 120 H POC Glucose 137 H Lactic Acid Calcium Phosphorus Magnesium Direct Bilirubin AST ALT Alkaline Phosphatase Lactate Dehydrogenase Troponin T C-Reactive Protein Total Protein Albumin Prealbumin Triglycerides Cholesterol LDL Cholesterol Direct HDL Cholesterol Urine pH Urine WBC (Auto) Urine Creatinine Urine Total Protein Fluid Total Protein Vancomycin Trough Rheumatoid Factor Complement C4 Miscellaneous Test Crossmatch 10/16/16 10/16/16 10/16/16 05:44 06:25 06:25 WBC 22.5 H RBC 2.76 L Hgb 8.3 L Hct 25.2 L MCV MCH MCHC RDW 18.3 H Plt Count Lymph % (Auto) [place] % (Auto) Lymph # [place] # Baso # Seg Neutrophils % Seg Neuts % (Manual) Lymphocytes % (Manual) Monocytes % (Manual) Eosinophils % (Manual) Basophils % (Manual) Nucleated RBC % Seg Neutrophils # Seg Neutrophils # Man Lymphocytes # (Manual) Monocytes # (Manual) Eosinophils # (Manual) PT INR Fibrinogen dRVVT Confirm Interp Factor V Activity POC ABG pH POC ABG pCO2 POC ABG pO2 ABG pO2 ABG HCO3 ABG Base Excess ABG Hemoglobin Oxyhemoglobin Sodium Potassium Chloride Carbon Dioxide BUN 92 H Creatinine 3.0 H Glucose 138 H POC Glucose 110 H Lactic Acid Calcium Phosphorus Magnesium Direct Bilirubin AST ALT Alkaline Phosphatase Lactate Dehydrogenase Troponin T C-Reactive Protein Total Protein Albumin Prealbumin Triglycerides Cholesterol LDL Cholesterol Direct HDL Cholesterol Urine pH Urine WBC (Auto) Urine Creatinine Urine Total Protein Fluid Total Protein Vancomycin Trough Rheumatoid Factor Complement C4 Miscellaneous Test Crossmatch 10/16/16 10/16/16 10/16/16 11:27 11:48 17:36 WBC RBC Hgb Hct MCV MCH MCHC RDW Plt Count Lymph % (Auto) [place] % (Auto) Lymph # [place] # Baso # Seg Neutrophils % Seg Neuts % (Manual) Lymphocytes % (Manual) Monocytes % (Manual) Eosinophils % (Manual) Basophils % (Manual) Nucleated RBC % Seg Neutrophils # Seg Neutrophils # Man Lymphocytes # (Manual) Monocytes # (Manual) Eosinophils # (Manual) PT INR Fibrinogen dRVVT Confirm Interp Factor V Activity POC ABG pH 7.582 H POC ABG pCO2 27.4 L POC ABG pO2 110 H ABG pO2 ABG HCO3 ABG Base Excess ABG Hemoglobin Oxyhemoglobin Sodium Potassium Chloride Carbon Dioxide BUN Creatinine Glucose POC Glucose 121 H 133 H Lactic Acid Calcium Phosphorus Magnesium Direct Bilirubin AST ALT Alkaline Phosphatase Lactate Dehydrogenase Troponin T C-Reactive Protein Total Protein Albumin Prealbumin Triglycerides Cholesterol LDL Cholesterol Direct HDL Cholesterol Urine pH Urine WBC (Auto) Urine Creatinine Urine Total Protein Fluid Total Protein Vancomycin Trough Rheumatoid Factor Complement C4 Miscellaneous Test Crossmatch 10/16/16 10/17/16 10/17/16 20:48 04:24 04:24 WBC 21.4 H RBC 2.72 L Hgb 8.0 L Hct 25.2 L MCV MCH MCHC RDW 18.0 H Plt Count Lymph % (Auto) [place] % (Auto) Lymph # [place] # Baso # Seg Neutrophils % Seg Neuts % (Manual) Lymphocytes % (Manual) Monocytes % (Manual) Eosinophils % (Manual) Basophils % (Manual) Nucleated RBC % Seg Neutrophils # Seg Neutrophils # Man Lymphocytes # (Manual) Monocytes # (Manual) Eosinophils # (Manual) PT INR Fibrinogen dRVVT Confirm Interp Factor V Activity POC ABG pH 7.561 H POC ABG pCO2 24.4 L POC ABG pO2 77 L ABG pO2 ABG HCO3 ABG Base Excess ABG Hemoglobin Oxyhemoglobin Sodium 148 H Potassium Chloride Carbon Dioxide BUN 104 H Creatinine 3.0 H Glucose 149 H POC Glucose Lactic Acid Calcium Phosphorus Magnesium Direct Bilirubin AST ALT Alkaline Phosphatase 138 H Lactate Dehydrogenase Troponin T C-Reactive Protein Total Protein 6.2 L Albumin 1.5 L Prealbumin Triglycerides Cholesterol LDL Cholesterol Direct HDL Cholesterol Urine pH Urine WBC (Auto) Urine Creatinine Urine Total Protein Fluid Total Protein Vancomycin Trough Rheumatoid Factor Complement C4 Miscellaneous Test Crossmatch 10/17/16 10/17/16 10/17/16 06:02 12:17 17:14 WBC RBC Hgb Hct MCV MCH MCHC RDW Plt Count Lymph % (Auto) [place] % (Auto) Lymph # [place] # Baso # Seg Neutrophils % Seg Neuts % (Manual) Lymphocytes % (Manual) Monocytes % (Manual) Eosinophils % (Manual) Basophils % (Manual) Nucleated RBC % Seg Neutrophils # Seg Neutrophils # Man Lymphocytes # (Manual) Monocytes # (Manual) Eosinophils # (Manual) PT INR Fibrinogen dRVVT Confirm Interp Factor V Activity POC ABG pH POC ABG pCO2 POC ABG pO2 ABG pO2 ABG HCO3 ABG Base Excess ABG Hemoglobin Oxyhemoglobin Sodium Potassium Chloride Carbon Dioxide BUN Creatinine Glucose POC Glucose 170 H 167 H 126 H Lactic Acid Calcium Phosphorus Magnesium Direct Bilirubin AST ALT Alkaline Phosphatase Lactate Dehydrogenase Troponin T C-Reactive Protein Total Protein Albumin Prealbumin Triglycerides Cholesterol LDL Cholesterol Direct HDL Cholesterol Urine pH Urine WBC (Auto) Urine Creatinine Urine Total Protein Fluid Total Protein Vancomycin Trough Rheumatoid Factor Complement C4 Miscellaneous Test Crossmatch 10/17/16 10/18/16 10/18/16 23:17 04:00 04:00 WBC 20.7 H RBC 2.47 L Hgb 7.4 L Hct 22.9 L MCV MCH MCHC RDW 17.5 H Plt Count Lymph % (Auto) [place] % (Auto) Lymph # [place] # Baso # Seg Neutrophils % Seg Neuts % (Manual) Lymphocytes % (Manual) Monocytes % (Manual) Eosinophils % (Manual) Basophils % (Manual) Nucleated RBC % Seg Neutrophils # Seg Neutrophils # Man Lymphocytes # (Manual) Monocytes # (Manual) Eosinophils # (Manual) PT INR Fibrinogen dRVVT Confirm Interp Factor V Activity POC ABG pH POC ABG pCO2 POC ABG pO2 ABG pO2 ABG HCO3 ABG Base Excess ABG Hemoglobin Oxyhemoglobin Sodium 149 H Potassium Chloride 107.9 H Carbon Dioxide 20 L BUN 117 H Creatinine 3.2 H Glucose 119 H POC Glucose 121 H Lactic Acid Calcium Phosphorus Magnesium Direct Bilirubin AST ALT Alkaline Phosphatase Lactate Dehydrogenase Troponin T C-Reactive Protein Total Protein Albumin Prealbumin Triglycerides Cholesterol LDL Cholesterol Direct HDL Cholesterol Urine pH Urine WBC (Auto) Urine Creatinine Urine Total Protein Fluid Total Protein Vancomycin Trough Rheumatoid Factor Complement C4 Miscellaneous Test Crossmatch 10/18/16 10/18/16 10/18/16 05:23 10:46 17:30 WBC RBC Hgb Hct MCV MCH MCHC RDW Plt Count Lymph % (Auto) [place] % (Auto) Lymph # [place] # Baso # Seg Neutrophils % Seg Neuts % (Manual) Lymphocytes % (Manual) Monocytes % (Manual) Eosinophils % (Manual) Basophils % (Manual) Nucleated RBC % Seg Neutrophils # Seg Neutrophils # Man Lymphocytes # (Manual) Monocytes # (Manual) Eosinophils # (Manual) PT INR Fibrinogen dRVVT Confirm Interp Factor V Activity POC ABG pH POC ABG pCO2 POC ABG pO2 ABG pO2 ABG HCO3 ABG Base Excess ABG Hemoglobin Oxyhemoglobin Sodium Potassium Chloride Carbon Dioxide BUN Creatinine Glucose POC Glucose 119 H 155 H 124 H Lactic Acid Calcium Phosphorus Magnesium Direct Bilirubin AST ALT Alkaline Phosphatase Lactate Dehydrogenase Troponin T C-Reactive Protein Total Protein Albumin Prealbumin Triglycerides Cholesterol LDL Cholesterol Direct HDL Cholesterol Urine pH Urine WBC (Auto) Urine Creatinine Urine Total Protein Fluid Total Protein Vancomycin Trough Rheumatoid Factor Complement C4 Miscellaneous Test Crossmatch 10/19/16 10/19/16 10/19/16 04:00 04:00 05:25 WBC 17.4 H RBC 2.54 L Hgb 7.7 L Hct 23.6 L MCV MCH MCHC RDW 17.3 H Plt Count Lymph % (Auto) [place] % (Auto) Lymph # [place] # Baso # Seg Neutrophils % Seg Neuts % (Manual) Lymphocytes % (Manual) Monocytes % (Manual) Eosinophils % (Manual) Basophils % (Manual) Nucleated RBC % Seg Neutrophils # Seg Neutrophils # Man Lymphocytes # (Manual) Monocytes # (Manual) Eosinophils # (Manual) PT INR Fibrinogen dRVVT Confirm Interp Factor V Activity POC ABG pH POC ABG pCO2 POC ABG pO2 ABG pO2 ABG HCO3 ABG Base Excess ABG Hemoglobin Oxyhemoglobin Sodium Potassium Chloride Carbon Dioxide BUN 72 H Creatinine 2.1 H Glucose 116 H POC Glucose 119 H Lactic Acid Calcium Phosphorus Magnesium Direct Bilirubin AST ALT Alkaline Phosphatase Lactate Dehydrogenase Troponin T C-Reactive Protein Total Protein Albumin Prealbumin Triglycerides Cholesterol LDL Cholesterol Direct HDL Cholesterol Urine pH Urine WBC (Auto) Urine Creatinine Urine Total Protein Fluid Total Protein Vancomycin Trough Rheumatoid Factor Complement C4 Miscellaneous Test Crossmatch 10/19/16 10/19/16 10/20/16 11:46 23:59 06:00 WBC RBC Hgb Hct MCV MCH MCHC RDW Plt Count Lymph % (Auto) [place] % (Auto) Lymph # [place] # Baso # Seg Neutrophils % Seg Neuts % (Manual) Lymphocytes % (Manual) Monocytes % (Manual) Eosinophils % (Manual) Basophils % (Manual) Nucleated RBC % Seg Neutrophils # Seg Neutrophils # Man Lymphocytes # (Manual) Monocytes # (Manual) Eosinophils # (Manual) PT INR Fibrinogen dRVVT Confirm Interp Factor V Activity POC ABG pH POC ABG pCO2 POC ABG pO2 ABG pO2 ABG HCO3 ABG Base Excess ABG Hemoglobin Oxyhemoglobin Sodium Potassium Chloride Carbon Dioxide 17 L BUN 94 H Creatinine 2.7 H Glucose POC Glucose 116 H 117 H Lactic Acid Calcium Phosphorus Magnesium Direct Bilirubin AST ALT Alkaline Phosphatase Lactate Dehydrogenase Troponin T C-Reactive Protein Total Protein Albumin Prealbumin Triglycerides Cholesterol LDL Cholesterol Direct HDL Cholesterol Urine pH Urine WBC (Auto) Urine Creatinine Urine Total Protein Fluid Total Protein Vancomycin Trough Rheumatoid Factor Complement C4 Miscellaneous Test Crossmatch 10/20/16 10/20/16 10/20/16 06:00 11:49 16:00 WBC 19.7 H RBC 2.51 L Hgb 7.7 L Hct 23.5 L MCV MCH MCHC RDW 17.5 H Plt Count Lymph % (Auto) [place] % (Auto) Lymph # [place] # Baso # Seg Neutrophils % Seg Neuts % (Manual) Lymphocytes % (Manual) Monocytes % (Manual) Eosinophils % (Manual) Basophils % (Manual) Nucleated RBC % Seg Neutrophils # Seg Neutrophils # Man Lymphocytes # (Manual) Monocytes # (Manual) Eosinophils # (Manual) PT INR Fibrinogen dRVVT Confirm Interp Factor V Activity POC ABG pH POC ABG pCO2 POC ABG pO2 ABG pO2 ABG HCO3 ABG Base Excess ABG Hemoglobin Oxyhemoglobin Sodium Potassium Chloride Carbon Dioxide BUN Creatinine Glucose POC Glucose 117 H Lactic Acid Calcium Phosphorus Magnesium Direct Bilirubin AST ALT Alkaline Phosphatase Lactate Dehydrogenase Troponin T C-Reactive Protein Total Protein Albumin Prealbumin Triglycerides Cholesterol LDL Cholesterol Direct HDL Cholesterol Urine pH Urine WBC (Auto) Urine Creatinine Urine Total Protein Fluid Total Protein Vancomycin Trough Rheumatoid Factor Complement C4 Miscellaneous Test Flexitest 1 H Crossmatch 10/20/16 10/20/16 10/21/16 18:36 23:39 04:00 WBC RBC Hgb Hct MCV MCH MCHC RDW Plt Count Lymph % (Auto) [place] % (Auto) Lymph # [place] # Baso # Seg Neutrophils % Seg Neuts % (Manual) Lymphocytes % (Manual) Monocytes % (Manual) Eosinophils % (Manual) Basophils % (Manual) Nucleated RBC % Seg Neutrophils # Seg Neutrophils # Man Lymphocytes # (Manual) Monocytes # (Manual) Eosinophils # (Manual) PT INR Fibrinogen dRVVT Confirm Interp Factor V Activity POC ABG pH POC ABG pCO2 POC ABG pO2 ABG pO2 ABG HCO3 ABG Base Excess ABG Hemoglobin Oxyhemoglobin Sodium Potassium 5.4 H D Chloride Carbon Dioxide 15 L BUN 110 H Creatinine 3.0 H Glucose POC Glucose 127 H 114 H Lactic Acid Calcium Phosphorus Magnesium Direct Bilirubin AST ALT Alkaline Phosphatase Lactate Dehydrogenase Troponin T C-Reactive Protein Total Protein Albumin Prealbumin Triglycerides Cholesterol LDL Cholesterol Direct HDL Cholesterol Urine pH Urine WBC (Auto) Urine Creatinine Urine Total Protein Fluid Total Protein Vancomycin Trough Rheumatoid Factor Complement C4 Miscellaneous Test Crossmatch 10/21/16 10/21/16 10/22/16 05:54 23:46 05:18 WBC RBC Hgb Hct MCV MCH MCHC RDW Plt Count Lymph % (Auto) [place] % (Auto) Lymph # [place] # Baso # Seg Neutrophils % Seg Neuts % (Manual) Lymphocytes % (Manual) Monocytes % (Manual) Eosinophils % (Manual) Basophils % (Manual) Nucleated RBC % Seg Neutrophils # Seg Neutrophils # Man Lymphocytes # (Manual) Monocytes # (Manual) Eosinophils # (Manual) PT INR Fibrinogen dRVVT Confirm Interp Factor V Activity POC ABG pH POC ABG pCO2 POC ABG pO2 ABG pO2 ABG HCO3 ABG Base Excess ABG Hemoglobin Oxyhemoglobin Sodium Potassium Chloride Carbon Dioxide BUN Creatinine Glucose POC Glucose 119 H 108 H 109 H Lactic Acid Calcium Phosphorus Magnesium Direct Bilirubin AST ALT Alkaline Phosphatase Lactate Dehydrogenase Troponin T C-Reactive Protein Total Protein Albumin Prealbumin Triglycerides Cholesterol LDL Cholesterol Direct HDL Cholesterol Urine pH Urine WBC (Auto) Urine Creatinine Urine Total Protein Fluid Total Protein Vancomycin Trough Rheumatoid Factor Complement C4 Miscellaneous Test Crossmatch 10/22/16 10/22/16 10/22/16 06:40 06:40 06:40 WBC 14.0 H RBC 2.03 L Hgb 7.0 L Hct 20.5 L MCV 98 H MCH 34 H MCHC 35 H RDW 17.8 H Plt Count Lymph % (Auto) [place] % (Auto) 9.9 H Lymph # [place] # 1.4 H Baso # 0.2 H Seg Neutrophils % 72.0 H Seg Neuts % (Manual) Lymphocytes % (Manual) Monocytes % (Manual) Eosinophils % (Manual) Basophils % (Manual) Nucleated RBC % Seg Neutrophils # 10.0 H Seg Neutrophils # Man Lymphocytes # (Manual) Monocytes # (Manual) Eosinophils # (Manual) PT INR Fibrinogen dRVVT Confirm Interp Factor V Activity POC ABG pH POC ABG pCO2 POC ABG pO2 ABG pO2 ABG HCO3 ABG Base Excess ABG Hemoglobin Oxyhemoglobin Sodium 130 L D Potassium Chloride 92.4 L Carbon Dioxide 20 L BUN 50 H Creatinine 1.6 H Glucose 589 H* POC Glucose Lactic Acid Calcium 7.8 L D Phosphorus Magnesium 1.60 L Direct Bilirubin AST ALT Alkaline Phosphatase Lactate Dehydrogenase Troponin T C-Reactive Protein Total Protein Albumin Prealbumin Triglycerides Cholesterol LDL Cholesterol Direct HDL Cholesterol Urine pH Urine WBC (Auto) Urine Creatinine Urine Total Protein Fluid Total Protein Vancomycin Trough Rheumatoid Factor Complement C4 Miscellaneous Test Crossmatch 10/22/16 10/22/16 10/22/16 11:39 16:44 23:36 WBC RBC Hgb Hct MCV MCH MCHC RDW Plt Count Lymph % (Auto) [place] % (Auto) Lymph # [place] # Baso # Seg Neutrophils % Seg Neuts % (Manual) Lymphocytes % (Manual) Monocytes % (Manual) Eosinophils % (Manual) Basophils % (Manual) Nucleated RBC % Seg Neutrophils # Seg Neutrophils # Man Lymphocytes # (Manual) Monocytes # (Manual) Eosinophils # (Manual) PT INR Fibrinogen dRVVT Confirm Interp Factor V Activity POC ABG pH POC ABG pCO2 POC ABG pO2 ABG pO2 ABG HCO3 ABG Base Excess ABG Hemoglobin Oxyhemoglobin Sodium Potassium Chloride Carbon Dioxide BUN Creatinine Glucose POC Glucose 142 H 163 H 123 H Lactic Acid Calcium Phosphorus Magnesium Direct Bilirubin AST ALT Alkaline Phosphatase Lactate Dehydrogenase Troponin T C-Reactive Protein Total Protein Albumin Prealbumin Triglycerides Cholesterol LDL Cholesterol Direct HDL Cholesterol Urine pH Urine WBC (Auto) Urine Creatinine Urine Total Protein Fluid Total Protein Vancomycin Trough Rheumatoid Factor Complement C4 Miscellaneous Test Crossmatch 10/23/16 10/23/16 10/23/16 04:58 06:00 12:12 WBC RBC Hgb Hct MCV MCH MCHC RDW Plt Count Lymph % (Auto) [place] % (Auto) Lymph # [place] # Baso # Seg Neutrophils % Seg Neuts % (Manual) Lymphocytes % (Manual) Monocytes % (Manual) Eosinophils % (Manual) Basophils % (Manual) Nucleated RBC % Seg Neutrophils # Seg Neutrophils # Man Lymphocytes # (Manual) Monocytes # (Manual) Eosinophils # (Manual) PT INR Fibrinogen dRVVT Confirm Interp Factor V Activity POC ABG pH POC ABG pCO2 POC ABG pO2 ABG pO2 ABG HCO3 ABG Base Excess ABG Hemoglobin Oxyhemoglobin Sodium 133 L Potassium 3.5 L Chloride 96.1 L Carbon Dioxide 18 L BUN 76 H Creatinine 2.1 H Glucose POC Glucose 133 H 138 H Lactic Acid Calcium 8.3 L Phosphorus Magnesium Direct Bilirubin AST ALT Alkaline Phosphatase Lactate Dehydrogenase Troponin T C-Reactive Protein Total Protein Albumin Prealbumin Triglycerides Cholesterol LDL Cholesterol Direct HDL Cholesterol Urine pH Urine WBC (Auto) Urine Creatinine Urine Total Protein Fluid Total Protein Vancomycin Trough Rheumatoid Factor Complement C4 Miscellaneous Test Crossmatch 10/23/16 10/23/16 10/24/16 16:53 23:37 04:00 WBC RBC Hgb Hct MCV MCH MCHC RDW Plt Count Lymph % (Auto) [place] % (Auto) Lymph # [place] # Baso # Seg Neutrophils % Seg Neuts % (Manual) Lymphocytes % (Manual) Monocytes % (Manual) Eosinophils % (Manual) Basophils % (Manual) Nucleated RBC % Seg Neutrophils # Seg Neutrophils # Man Lymphocytes # (Manual) Monocytes # (Manual) Eosinophils # (Manual) PT INR Fibrinogen dRVVT Confirm Interp Factor V Activity POC ABG pH POC ABG pCO2 POC ABG pO2 ABG pO2 ABG HCO3 ABG Base Excess ABG Hemoglobin Oxyhemoglobin Sodium 131 L Potassium Chloride 94.5 L Carbon Dioxide 19 L BUN 97 H Creatinine 2.6 H Glucose 110 H POC Glucose 125 H 123 H Lactic Acid Calcium 8.3 L Phosphorus Magnesium Direct Bilirubin AST ALT Alkaline Phosphatase Lactate Dehydrogenase Troponin T C-Reactive Protein Total Protein Albumin Prealbumin Triglycerides Cholesterol LDL Cholesterol Direct HDL Cholesterol Urine pH Urine WBC (Auto) Urine Creatinine Urine Total Protein Fluid Total Protein Vancomycin Trough Rheumatoid Factor Complement C4 Miscellaneous Test Crossmatch 10/24/16 10/24/16 10/24/16 07:49 11:39 17:52 WBC RBC Hgb 6.0 L Hct 19.7 L* MCV MCH MCHC RDW Plt Count Lymph % (Auto) [place] % (Auto) Lymph # [place] # Baso # Seg Neutrophils % Seg Neuts % (Manual) Lymphocytes % (Manual) Monocytes % (Manual) Eosinophils % (Manual) Basophils % (Manual) Nucleated RBC % Seg Neutrophils # Seg Neutrophils # Man Lymphocytes # (Manual) Monocytes # (Manual) Eosinophils # (Manual) PT INR Fibrinogen dRVVT Confirm Interp Factor V Activity POC ABG pH POC ABG pCO2 POC ABG pO2 ABG pO2 ABG HCO3 ABG Base Excess ABG Hemoglobin Oxyhemoglobin Sodium Potassium Chloride Carbon Dioxide BUN Creatinine Glucose POC Glucose 106 H 158 H Lactic Acid Calcium Phosphorus Magnesium Direct Bilirubin AST ALT Alkaline Phosphatase Lactate Dehydrogenase Troponin T C-Reactive Protein Total Protein Albumin Prealbumin Triglycerides Cholesterol LDL Cholesterol Direct HDL Cholesterol Urine pH Urine WBC (Auto) Urine Creatinine Urine Total Protein Fluid Total Protein Vancomycin Trough Rheumatoid Factor Complement C4 Miscellaneous Test Crossmatch 0910/24/16 10/24/16 20:00 22:27 Unknown WBC RBC Hgb 9.4 L D Hct 27.5 L D MCV MCH MCHC RDW Plt Count Lymph % (Auto) [place] % (Auto) Lymph # [place] # Baso # Seg Neutrophils % Seg Neuts % (Manual) Lymphocytes % (Manual) Monocytes % (Manual) Eosinophils % (Manual) Basophils % (Manual) Nucleated RBC % Seg Neutrophils # Seg Neutrophils # Man Lymphocytes # (Manual) Monocytes # (Manual) Eosinophils # (Manual) PT INR Fibrinogen dRVVT Confirm Interp Factor V Activity POC ABG pH POC ABG pCO2 POC ABG pO2 ABG pO2 ABG HCO3 ABG Base Excess ABG Hemoglobin Oxyhemoglobin Sodium Potassium Chloride Carbon Dioxide BUN Creatinine Glucose POC Glucose 125 H Lactic Acid Calcium Phosphorus Magnesium Direct Bilirubin AST ALT Alkaline Phosphatase Lactate Dehydrogenase Troponin T C-Reactive Protein Total Protein Albumin Prealbumin Triglycerides Cholesterol LDL Cholesterol Direct HDL Cholesterol Urine pH Urine WBC (Auto) Urine Creatinine Urine Total Protein Fluid Total Protein Vancomycin Trough Rheumatoid Factor Complement C4 Miscellaneous Test Crossmatch See Detail 10/25/16 10/25/16 10/25/16 04:00 04:00 04:00 WBC 14.2 H RBC 2.98 L Hgb 9.0 L Hct 26.2 L MCV MCH MCHC RDW 16.6 H Plt Count Lymph % (Auto) [place] % (Auto) 10.7 H Lymph # [place] # 1.5 H Baso # Seg Neutrophils % 73.6 H Seg Neuts % (Manual) Lymphocytes % (Manual) Monocytes % (Manual) Eosinophils % (Manual) Basophils % (Manual) Nucleated RBC % Seg Neutrophils # 10.5 H Seg Neutrophils # Man Lymphocytes # (Manual) Monocytes # (Manual) Eosinophils # (Manual) PT INR Fibrinogen dRVVT Confirm Interp Factor V Activity POC ABG pH POC ABG pCO2 POC ABG pO2 ABG pO2 ABG HCO3 ABG Base Excess ABG Hemoglobin Oxyhemoglobin Sodium 132 L Potassium Chloride 94.7 L Carbon Dioxide BUN 51 H Creatinine 1.6 H Glucose 130 H POC Glucose Lactic Acid Calcium 8.3 L Phosphorus 1.60 L D Magnesium Direct Bilirubin AST ALT Alkaline Phosphatase Lactate Dehydrogenase Troponin T C-Reactive Protein Total Protein Albumin Prealbumin Triglycerides Cholesterol LDL Cholesterol Direct HDL Cholesterol Urine pH Urine WBC (Auto) Urine Creatinine Urine Total Protein Fluid Total Protein Vancomycin Trough Rheumatoid Factor Complement C4 Miscellaneous Test Crossmatch 10/25/16 10/25/16 10/25/16 04:32 11:48 17:22 WBC RBC Hgb Hct MCV MCH MCHC RDW Plt Count Lymph % (Auto) [place] % (Auto) Lymph # [place] # Baso # Seg Neutrophils % Seg Neuts % (Manual) Lymphocytes % (Manual) Monocytes % (Manual) Eosinophils % (Manual) Basophils % (Manual) Nucleated RBC % Seg Neutrophils # Seg Neutrophils # Man Lymphocytes # (Manual) Monocytes # (Manual) Eosinophils # (Manual) PT INR Fibrinogen dRVVT Confirm Interp Factor V Activity POC ABG pH POC ABG pCO2 POC ABG pO2 ABG pO2 ABG HCO3 ABG Base Excess ABG Hemoglobin Oxyhemoglobin Sodium Potassium Chloride Carbon Dioxide BUN Creatinine Glucose POC Glucose 124 H 171 H 120 H Lactic Acid Calcium Phosphorus Magnesium Direct Bilirubin AST ALT Alkaline Phosphatase Lactate Dehydrogenase Troponin T C-Reactive Protein Total Protein Albumin Prealbumin Triglycerides Cholesterol LDL Cholesterol Direct HDL Cholesterol Urine pH Urine WBC (Auto) Urine Creatinine Urine Total Protein Fluid Total Protein Vancomycin Trough Rheumatoid Factor Complement C4 Miscellaneous Test Crossmatch 10/26/16 10/26/16 10/26/16 04:54 07:06 07:06 WBC 16.9 H RBC 3.06 L Hgb 9.1 L Hct 26.9 L MCV MCH MCHC RDW 16.9 H Plt Count Lymph % (Auto) [place] % (Auto) Lymph # [place] # Baso # Seg Neutrophils % Seg Neuts % (Manual) 71.0 H Lymphocytes % (Manual) 5.0 L Monocytes % (Manual) 12.0 H Eosinophils % (Manual) Basophils % (Manual) Nucleated RBC % Seg Neutrophils # Seg Neutrophils # Man 12.0 H Lymphocytes # (Manual) 0.8 L Monocytes # (Manual) 2.0 H Eosinophils # (Manual) PT INR Fibrinogen dRVVT Confirm Interp Factor V Activity POC ABG pH POC ABG pCO2 POC ABG pO2 ABG pO2 ABG HCO3 ABG Base Excess ABG Hemoglobin Oxyhemoglobin Sodium 135 L Potassium Chloride 97.1 L Carbon Dioxide BUN 73 H Creatinine 2.2 H Glucose 117 H POC Glucose 123 H Lactic Acid Calcium Phosphorus 1.70 L Magnesium Direct Bilirubin AST ALT Alkaline Phosphatase Lactate Dehydrogenase Troponin T C-Reactive Protein Total Protein Albumin Prealbumin Triglycerides Cholesterol LDL Cholesterol Direct HDL Cholesterol Urine pH Urine WBC (Auto) Urine Creatinine Urine Total Protein Fluid Total Protein Vancomycin Trough Rheumatoid Factor Complement C4 Miscellaneous Test Crossmatch 10/26/16 10/26/16 10/26/16 12:12 17:29 23:42 WBC RBC Hgb Hct MCV MCH MCHC RDW Plt Count Lymph % (Auto) [place] % (Auto) Lymph # [place] # Baso # Seg Neutrophils % Seg Neuts % (Manual) Lymphocytes % (Manual) Monocytes % (Manual) Eosinophils % (Manual) Basophils % (Manual) Nucleated RBC % Seg Neutrophils # Seg Neutrophils # Man Lymphocytes # (Manual) Monocytes # (Manual) Eosinophils # (Manual) PT INR Fibrinogen dRVVT Confirm Interp Factor V Activity POC ABG pH POC ABG pCO2 POC ABG pO2 ABG pO2 ABG HCO3 ABG Base Excess ABG Hemoglobin Oxyhemoglobin Sodium Potassium Chloride Carbon Dioxide BUN Creatinine Glucose POC Glucose 126 H 161 H 118 H Lactic Acid Calcium Phosphorus Magnesium Direct Bilirubin AST ALT Alkaline Phosphatase Lactate Dehydrogenase Troponin T C-Reactive Protein Total Protein Albumin Prealbumin Triglycerides Cholesterol LDL Cholesterol Direct HDL Cholesterol Urine pH Urine WBC (Auto) Urine Creatinine Urine Total Protein Fluid Total Protein Vancomycin Trough Rheumatoid Factor Complement C4 Miscellaneous Test Crossmatch 10/27/16 10/27/16 10/27/16 05:03 06:30 06:30 WBC 13.9 H RBC 3.09 L Hgb 9.2 L Hct 27.5 L MCV MCH MCHC RDW 17.0 H Plt Count Lymph % (Auto) [place] % (Auto) Lymph # [place] # Baso # Seg Neutrophils % Seg Neuts % (Manual) 78.0 H Lymphocytes % (Manual) Monocytes % (Manual) Eosinophils % (Manual) Basophils % (Manual) Nucleated RBC % 2.0 H Seg Neutrophils # Seg Neutrophils # Man 10.8 H Lymphocytes # (Manual) Monocytes # (Manual) 1.0 H Eosinophils # (Manual) PT INR Fibrinogen dRVVT Confirm Interp Factor V Activity POC ABG pH POC ABG pCO2 POC ABG pO2 ABG pO2 ABG HCO3 ABG Base Excess ABG Hemoglobin Oxyhemoglobin Sodium Potassium Chloride Carbon Dioxide BUN 40 H Creatinine 1.5 H Glucose 135 H POC Glucose 107 H Lactic Acid Calcium 8.3 L Phosphorus 1.30 L D Magnesium Direct Bilirubin AST ALT Alkaline Phosphatase Lactate Dehydrogenase Troponin T C-Reactive Protein Total Protein Albumin Prealbumin Triglycerides Cholesterol LDL Cholesterol Direct HDL Cholesterol Urine pH Urine WBC (Auto) Urine Creatinine Urine Total Protein Fluid Total Protein Vancomycin Trough Rheumatoid Factor Complement C4 Miscellaneous Test Crossmatch 10/27/16 10/27/16 10/27/16 13:27 18:07 23:40 WBC RBC Hgb Hct MCV MCH MCHC RDW Plt Count Lymph % (Auto) [place] % (Auto) Lymph # [place] # Baso # Seg Neutrophils % Seg Neuts % (Manual) Lymphocytes % (Manual) Monocytes % (Manual) Eosinophils % (Manual) Basophils % (Manual) Nucleated RBC % Seg Neutrophils # Seg Neutrophils # Man Lymphocytes # (Manual) Monocytes # (Manual) Eosinophils # (Manual) PT INR Fibrinogen dRVVT Confirm Interp Factor V Activity POC ABG pH POC ABG pCO2 POC ABG pO2 ABG pO2 ABG HCO3 ABG Base Excess ABG Hemoglobin Oxyhemoglobin Sodium Potassium Chloride Carbon Dioxide BUN Creatinine Glucose POC Glucose 117 H 121 H 118 H Lactic Acid Calcium Phosphorus Magnesium Direct Bilirubin AST ALT Alkaline Phosphatase Lactate Dehydrogenase Troponin T C-Reactive Protein Total Protein Albumin Prealbumin Triglycerides Cholesterol LDL Cholesterol Direct HDL Cholesterol Urine pH Urine WBC (Auto) Urine Creatinine Urine Total Protein Fluid Total Protein Vancomycin Trough Rheumatoid Factor Complement C4 Miscellaneous Test Crossmatch 10/28/16 10/28/16 10/28/16 05:48 06:45 06:45 WBC 14.7 H RBC 3.05 L Hgb 9.0 L Hct 26.9 L MCV MCH MCHC RDW 16.8 H Plt Count Lymph % (Auto) 8.2 L [place] % (Auto) 8.4 H Lymph # [place] # 1.2 H Baso # Seg Neutrophils % 81.9 H Seg Neuts % (Manual) Lymphocytes % (Manual) Monocytes % (Manual) Eosinophils % (Manual) Basophils % (Manual) Nucleated RBC % Seg Neutrophils # 12.1 H Seg Neutrophils # Man Lymphocytes # (Manual) Monocytes # (Manual) Eosinophils # (Manual) PT INR Fibrinogen dRVVT Confirm Interp Factor V Activity POC ABG pH POC ABG pCO2 POC ABG pO2 ABG pO2 ABG HCO3 ABG Base Excess ABG Hemoglobin Oxyhemoglobin Sodium Potassium Chloride Carbon Dioxide BUN 60 H Creatinine 1.9 H Glucose 120 H POC Glucose 114 H Lactic Acid Calcium Phosphorus Magnesium Direct Bilirubin AST ALT Alkaline Phosphatase Lactate Dehydrogenase Troponin T C-Reactive Protein Total Protein Albumin Prealbumin Triglycerides Cholesterol LDL Cholesterol Direct HDL Cholesterol Urine pH Urine WBC (Auto) Urine Creatinine Urine Total Protein Fluid Total Protein Vancomycin Trough Rheumatoid Factor Complement C4 Miscellaneous Test Crossmatch 10/28/16 10/28/16 10/29/16 17:08 23:50 05:10 WBC RBC Hgb Hct MCV MCH MCHC RDW Plt Count Lymph % (Auto) [place] % (Auto) Lymph # [place] # Baso # Seg Neutrophils % Seg Neuts % (Manual) Lymphocytes % (Manual) Monocytes % (Manual) Eosinophils % (Manual) Basophils % (Manual) Nucleated RBC % Seg Neutrophils # Seg Neutrophils # Man Lymphocytes # (Manual) Monocytes # (Manual) Eosinophils # (Manual) PT INR Fibrinogen dRVVT Confirm Interp Factor V Activity POC ABG pH POC ABG pCO2 POC ABG pO2 ABG pO2 ABG HCO3 ABG Base Excess ABG Hemoglobin Oxyhemoglobin Sodium Potassium Chloride Carbon Dioxide BUN Creatinine Glucose POC Glucose 109 H 110 H 124 H Lactic Acid Calcium Phosphorus Magnesium Direct Bilirubin AST ALT Alkaline Phosphatase Lactate Dehydrogenase Troponin T C-Reactive Protein Total Protein Albumin Prealbumin Triglycerides Cholesterol LDL Cholesterol Direct HDL Cholesterol Urine pH Urine WBC (Auto) Urine Creatinine Urine Total Protein Fluid Total Protein Vancomycin Trough Rheumatoid Factor Complement C4 Miscellaneous Test Crossmatch 10/29/16 10/29/16 10/29/16 07:45 07:45 12:19 WBC 14.7 H RBC 3.15 L Hgb 9.3 L Hct 28.9 L MCV MCH MCHC RDW 17.0 H Plt Count Lymph % (Auto) 11.9 L [place] % (Auto) 8.6 H Lymph # [place] # 1.3 H Baso # Seg Neutrophils % 78.1 H Seg Neuts % (Manual) Lymphocytes % (Manual) Monocytes % (Manual) Eosinophils % (Manual) Basophils % (Manual) Nucleated RBC % Seg Neutrophils # 11.4 H Seg Neutrophils # Man Lymphocytes # (Manual) Monocytes # (Manual) Eosinophils # (Manual) PT INR Fibrinogen dRVVT Confirm Interp Factor V Activity POC ABG pH POC ABG pCO2 POC ABG pO2 ABG pO2 ABG HCO3 ABG Base Excess ABG Hemoglobin Oxyhemoglobin Sodium Potassium 5.1 H Chloride Carbon Dioxide 19 L BUN 78 H Creatinine 2.2 H Glucose 116 H POC Glucose 118 H Lactic Acid Calcium Phosphorus Magnesium Direct Bilirubin AST ALT Alkaline Phosphatase Lactate Dehydrogenase Troponin T C-Reactive Protein Total Protein Albumin Prealbumin Triglycerides Cholesterol LDL Cholesterol Direct HDL Cholesterol Urine pH Urine WBC (Auto) Urine Creatinine Urine Total Protein Fluid Total Protein Vancomycin Trough Rheumatoid Factor Complement C4 Miscellaneous Test Crossmatch 0910/30/16 10/30/16 17:49 01:52 03:28 WBC RBC Hgb Hct MCV MCH MCHC RDW Plt Count Lymph % (Auto) [place] % (Auto) Lymph # [place] # Baso # Seg Neutrophils % Seg Neuts % (Manual) Lymphocytes % (Manual) Monocytes % (Manual) Eosinophils % (Manual) Basophils % (Manual) Nucleated RBC % Seg Neutrophils # Seg Neutrophils # Man Lymphocytes # (Manual) Monocytes # (Manual) Eosinophils # (Manual) PT INR Fibrinogen dRVVT Confirm Interp Factor V Activity POC ABG pH POC ABG pCO2 POC ABG pO2 ABG pO2 ABG HCO3 ABG Base Excess ABG Hemoglobin Oxyhemoglobin Sodium Potassium 5.4 H Chloride 97.5 L Carbon Dioxide 19 L BUN 90 H Creatinine 2.5 H Glucose POC Glucose 120 H 129 H Lactic Acid Calcium Phosphorus 5.20 H Magnesium Direct Bilirubin AST ALT Alkaline Phosphatase Lactate Dehydrogenase Troponin T C-Reactive Protein Total Protein Albumin Prealbumin Triglycerides Cholesterol LDL Cholesterol Direct HDL Cholesterol Urine pH Urine WBC (Auto) Urine Creatinine Urine Total Protein Fluid Total Protein Vancomycin Trough Rheumatoid Factor Complement C4 Miscellaneous Test Crossmatch 10/30/16 10/30/16 10/30/16 03:28 08:19 08:19 WBC 11.6 H 15.9 H RBC 2.75 L 2.82 L Hgb 7.9 L 8.3 L Hct 24.2 L 25.2 L MCV MCH MCHC RDW 16.7 H 17.2 H Plt Count Lymph % (Auto) [place] % (Auto) 9.8 H Lymph # [place] # 1.1 H Baso # Seg Neutrophils % 74.2 H Seg Neuts % (Manual) Lymphocytes % (Manual) Monocytes % (Manual) Eosinophils % (Manual) Basophils % (Manual) Nucleated RBC % Seg Neutrophils # 8.6 H Seg Neutrophils # Man Lymphocytes # (Manual) Monocytes # (Manual) Eosinophils # (Manual) PT INR Fibrinogen dRVVT Confirm Interp Factor V Activity POC ABG pH POC ABG pCO2 POC ABG pO2 ABG pO2 ABG HCO3 ABG Base Excess ABG Hemoglobin Oxyhemoglobin Sodium Potassium 5.3 H Chloride 97.4 L Carbon Dioxide 19 L BUN 93 H Creatinine 2.6 H Glucose POC Glucose Lactic Acid Calcium Phosphorus Magnesium Direct Bilirubin AST ALT Alkaline Phosphatase Lactate Dehydrogenase Troponin T C-Reactive Protein Total Protein Albumin Prealbumin Triglycerides Cholesterol LDL Cholesterol Direct HDL Cholesterol Urine pH Urine WBC (Auto) Urine Creatinine Urine Total Protein Fluid Total Protein Vancomycin Trough Rheumatoid Factor Complement C4 Miscellaneous Test Crossmatch 10/30/16 10/30/16 10/31/16 17:11 23:56 00:40 WBC RBC Hgb Hct MCV MCH MCHC RDW Plt Count Lymph % (Auto) [place] % (Auto) Lymph # [place] # Baso # Seg Neutrophils % Seg Neuts % (Manual) Lymphocytes % (Manual) Monocytes % (Manual) Eosinophils % (Manual) Basophils % (Manual) Nucleated RBC % Seg Neutrophils # Seg Neutrophils # Man Lymphocytes # (Manual) Monocytes # (Manual) Eosinophils # (Manual) PT INR Fibrinogen dRVVT Confirm Interp Factor V Activity POC ABG pH POC ABG pCO2 POC ABG pO2 ABG pO2 ABG HCO3 ABG Base Excess ABG Hemoglobin Oxyhemoglobin Sodium Potassium Chloride Carbon Dioxide BUN Creatinine Glucose POC Glucose 106 H 117 H 120 H Lactic Acid Calcium Phosphorus Magnesium Direct Bilirubin AST ALT Alkaline Phosphatase Lactate Dehydrogenase Troponin T C-Reactive Protein Total Protein Albumin Prealbumin Triglycerides Cholesterol LDL Cholesterol Direct HDL Cholesterol Urine pH Urine WBC (Auto) Urine Creatinine Urine Total Protein Fluid Total Protein Vancomycin Trough Rheumatoid Factor Complement C4 Miscellaneous Test Crossmatch 10/31/16 10/31/16 10/31/16 05:43 07:15 07:15 WBC 12.1 H RBC 2.63 L Hgb 7.7 L Hct 23.3 L MCV MCH MCHC RDW 16.7 H Plt Count Lymph % (Auto) 11.7 L [place] % (Auto) 7.7 H Lymph # [place] # 0.9 H Baso # Seg Neutrophils % 78.0 H Seg Neuts % (Manual) Lymphocytes % (Manual) Monocytes % (Manual) Eosinophils % (Manual) Basophils % (Manual) Nucleated RBC % Seg Neutrophils # 9.4 H Seg Neutrophils # Man Lymphocytes # (Manual) Monocytes # (Manual) Eosinophils # (Manual) PT INR Fibrinogen dRVVT Confirm Interp Factor V Activity POC ABG pH POC ABG pCO2 POC ABG pO2 ABG pO2 ABG HCO3 ABG Base Excess ABG Hemoglobin Oxyhemoglobin Sodium Potassium Chloride 96.4 L Carbon Dioxide 21 L BUN 99 H Creatinine 2.6 H Glucose 144 H POC Glucose 125 H Lactic Acid Calcium Phosphorus 4.80 H Magnesium Direct Bilirubin AST ALT Alkaline Phosphatase Lactate Dehydrogenase Troponin T C-Reactive Protein Total Protein Albumin Prealbumin Triglycerides Cholesterol LDL Cholesterol Direct HDL Cholesterol Urine pH Urine WBC (Auto) Urine Creatinine Urine Total Protein Fluid Total Protein Vancomycin Trough Rheumatoid Factor Complement C4 Miscellaneous Test Crossmatch 10/31/16 10/31/16 11/01/16 11:46 18:34 00:20 WBC RBC Hgb Hct MCV MCH MCHC RDW Plt Count Lymph % (Auto) [place] % (Auto) Lymph # [place] # Baso # Seg Neutrophils % Seg Neuts % (Manual) Lymphocytes % (Manual) Monocytes % (Manual) Eosinophils % (Manual) Basophils % (Manual) Nucleated RBC % Seg Neutrophils # Seg Neutrophils # Man Lymphocytes # (Manual) Monocytes # (Manual) Eosinophils # (Manual) PT INR Fibrinogen dRVVT Confirm Interp Factor V Activity POC ABG pH POC ABG pCO2 POC ABG pO2 ABG pO2 ABG HCO3 ABG Base Excess ABG Hemoglobin Oxyhemoglobin Sodium Potassium Chloride Carbon Dioxide BUN Creatinine Glucose POC Glucose 159 H 140 H 132 H Lactic Acid Calcium Phosphorus Magnesium Direct Bilirubin AST ALT Alkaline Phosphatase Lactate Dehydrogenase Troponin T C-Reactive Protein Total Protein Albumin Prealbumin Triglycerides Cholesterol LDL Cholesterol Direct HDL Cholesterol Urine pH Urine WBC (Auto) Urine Creatinine Urine Total Protein Fluid Total Protein Vancomycin Trough Rheumatoid Factor Complement C4 Miscellaneous Test Crossmatch 11/01/16 11/01/16 11/01/16 04:55 04:55 06:11 WBC 11.2 H RBC 2.68 L Hgb 7.5 L Hct 23.7 L MCV MCH MCHC RDW 16.1 H Plt Count Lymph % (Auto) [place] % (Auto) 9.8 H Lymph # [place] # 1.1 H Baso # Seg Neutrophils % 70.8 H Seg Neuts % (Manual) Lymphocytes % (Manual) Monocytes % (Manual) Eosinophils % (Manual) Basophils % (Manual) Nucleated RBC % Seg Neutrophils # 7.9 H Seg Neutrophils # Man Lymphocytes # (Manual) Monocytes # (Manual) Eosinophils # (Manual) PT INR Fibrinogen dRVVT Confirm Interp Factor V Activity POC ABG pH POC ABG pCO2 POC ABG pO2 ABG pO2 ABG HCO3 ABG Base Excess ABG Hemoglobin Oxyhemoglobin Sodium Potassium 3.3 L D Chloride Carbon Dioxide BUN 61 H Creatinine 1.9 H Glucose 114 H POC Glucose 115 H Lactic Acid Calcium Phosphorus 1.80 L D Magnesium Direct Bilirubin AST ALT Alkaline Phosphatase Lactate Dehydrogenase Troponin T C-Reactive Protein Total Protein Albumin Prealbumin Triglycerides Cholesterol LDL Cholesterol Direct HDL Cholesterol Urine pH Urine WBC (Auto) Urine Creatinine Urine Total Protein Fluid Total Protein Vancomycin Trough Rheumatoid Factor Complement C4 Miscellaneous Test Crossmatch 11/01/16 11/01/16 11/01/16 12:29 18:23 23:58 WBC RBC Hgb Hct MCV MCH MCHC RDW Plt Count Lymph % (Auto) [place] % (Auto) Lymph # [place] # Baso # Seg Neutrophils % Seg Neuts % (Manual) Lymphocytes % (Manual) Monocytes % (Manual) Eosinophils % (Manual) Basophils % (Manual) Nucleated RBC % Seg Neutrophils # Seg Neutrophils # Man Lymphocytes # (Manual) Monocytes # (Manual) Eosinophils # (Manual) PT INR Fibrinogen dRVVT Confirm Interp Factor V Activity POC ABG pH POC ABG pCO2 POC ABG pO2 ABG pO2 ABG HCO3 ABG Base Excess ABG Hemoglobin Oxyhemoglobin Sodium Potassium Chloride Carbon Dioxide BUN Creatinine Glucose POC Glucose 142 H 143 H 128 H Lactic Acid Calcium Phosphorus Magnesium Direct Bilirubin AST ALT Alkaline Phosphatase Lactate Dehydrogenase Troponin T C-Reactive Protein Total Protein Albumin Prealbumin Triglycerides Cholesterol LDL Cholesterol Direct HDL Cholesterol Urine pH Urine WBC (Auto) Urine Creatinine Urine Total Protein Fluid Total Protein Vancomycin Trough Rheumatoid Factor Complement C4 Miscellaneous Test Crossmatch 11/02/16 11/02/16 11/02/16 04:16 05:29 11:58 WBC RBC Hgb Hct MCV MCH MCHC RDW Plt Count Lymph % (Auto) [place] % (Auto) Lymph # [place] # Baso # Seg Neutrophils % Seg Neuts % (Manual) Lymphocytes % (Manual) Monocytes % (Manual) Eosinophils % (Manual) Basophils % (Manual) Nucleated RBC % Seg Neutrophils # Seg Neutrophils # Man Lymphocytes # (Manual) Monocytes # (Manual) Eosinophils # (Manual) PT INR Fibrinogen dRVVT Confirm Interp Factor V Activity POC ABG pH POC ABG pCO2 POC ABG pO2 ABG pO2 ABG HCO3 ABG Base Excess ABG Hemoglobin Oxyhemoglobin Sodium Potassium 3.1 L Chloride Carbon Dioxide BUN 73 H Creatinine 2.3 H Glucose 112 H POC Glucose 135 H 149 H Lactic Acid Calcium Phosphorus Magnesium Direct Bilirubin AST ALT Alkaline Phosphatase Lactate Dehydrogenase Troponin T C-Reactive Protein Total Protein Albumin Prealbumin Triglycerides Cholesterol LDL Cholesterol Direct HDL Cholesterol Urine pH Urine WBC (Auto) Urine Creatinine Urine Total Protein Fluid Total Protein Vancomycin Trough Rheumatoid Factor Complement C4 Miscellaneous Test Crossmatch 11/02/16 11/02/16 11/03/16 17:42 22:54 06:00 WBC RBC Hgb Hct MCV MCH MCHC RDW Plt Count Lymph % (Auto) [place] % (Auto) Lymph # [place] # Baso # Seg Neutrophils % Seg Neuts % (Manual) Lymphocytes % (Manual) Monocytes % (Manual) Eosinophils % (Manual) Basophils % (Manual) Nucleated RBC % Seg Neutrophils # Seg Neutrophils # Man Lymphocytes # (Manual) Monocytes # (Manual) Eosinophils # (Manual) PT INR Fibrinogen dRVVT Confirm Interp Factor V Activity POC ABG pH POC ABG pCO2 POC ABG pO2 ABG pO2 ABG HCO3 ABG Base Excess ABG Hemoglobin Oxyhemoglobin Sodium Potassium Chloride 96.7 L Carbon Dioxide BUN 41 H Creatinine 1.5 H Glucose 145 H POC Glucose 182 H 115 H Lactic Acid Calcium Phosphorus 1.60 L D Magnesium 1.50 L Direct Bilirubin AST ALT Alkaline Phosphatase Lactate Dehydrogenase Troponin T C-Reactive Protein Total Protein Albumin Prealbumin Triglycerides Cholesterol LDL Cholesterol Direct HDL Cholesterol Urine pH Urine WBC (Auto) Urine Creatinine Urine Total Protein Fluid Total Protein Vancomycin Trough Rheumatoid Factor Complement C4 Miscellaneous Test Crossmatch 11/03/16 11/03/16 11/03/16 11:53 17:45 23:37 WBC RBC Hgb Hct MCV MCH MCHC RDW Plt Count Lymph % (Auto) [place] % (Auto) Lymph # [place] # Baso # Seg Neutrophils % Seg Neuts % (Manual) Lymphocytes % (Manual) Monocytes % (Manual) Eosinophils % (Manual) Basophils % (Manual) Nucleated RBC % Seg Neutrophils # Seg Neutrophils # Man Lymphocytes # (Manual) Monocytes # (Manual) Eosinophils # (Manual) PT INR Fibrinogen dRVVT Confirm Interp Factor V Activity POC ABG pH POC ABG pCO2 POC ABG pO2 ABG pO2 ABG HCO3 ABG Base Excess ABG Hemoglobin Oxyhemoglobin Sodium Potassium Chloride Carbon Dioxide BUN Creatinine Glucose POC Glucose 131 H 134 H 113 H Lactic Acid Calcium Phosphorus Magnesium Direct Bilirubin AST ALT Alkaline Phosphatase Lactate Dehydrogenase Troponin T C-Reactive Protein Total Protein Albumin Prealbumin Triglycerides Cholesterol LDL Cholesterol Direct HDL Cholesterol Urine pH Urine WBC (Auto) Urine Creatinine Urine Total Protein Fluid Total Protein Vancomycin Trough Rheumatoid Factor Complement C4 Miscellaneous Test Crossmatch 11/04/16 11/04/16 11/04/16 05:41 06:00 12:10 WBC RBC Hgb Hct MCV MCH MCHC RDW Plt Count Lymph % (Auto) [place] % (Auto) Lymph # [place] # Baso # Seg Neutrophils % Seg Neuts % (Manual) Lymphocytes % (Manual) Monocytes % (Manual) Eosinophils % (Manual) Basophils % (Manual) Nucleated RBC % Seg Neutrophils # Seg Neutrophils # Man Lymphocytes # (Manual) Monocytes # (Manual) Eosinophils # (Manual) PT INR Fibrinogen dRVVT Confirm Interp Factor V Activity POC ABG pH POC ABG pCO2 POC ABG pO2 ABG pO2 ABG HCO3 ABG Base Excess ABG Hemoglobin Oxyhemoglobin Sodium Potassium Chloride 96.7 L Carbon Dioxide BUN 52 H Creatinine 1.9 H Glucose 126 H POC Glucose 137 H 191 H Lactic Acid Calcium Phosphorus Magnesium Direct Bilirubin AST ALT Alkaline Phosphatase Lactate Dehydrogenase Troponin T C-Reactive Protein Total Protein Albumin Prealbumin Triglycerides Cholesterol LDL Cholesterol Direct HDL Cholesterol Urine pH Urine WBC (Auto) Urine Creatinine Urine Total Protein Fluid Total Protein Vancomycin Trough Rheumatoid Factor Complement C4 Miscellaneous Test Crossmatch 11/04/16 11/05/16 11/05/16 22:57 03:10 05:10 WBC RBC Hgb Hct MCV MCH MCHC RDW Plt Count Lymph % (Auto) [place] % (Auto) Lymph # [place] # Baso # Seg Neutrophils % Seg Neuts % (Manual) Lymphocytes % (Manual) Monocytes % (Manual) Eosinophils % (Manual) Basophils % (Manual) Nucleated RBC % Seg Neutrophils # Seg Neutrophils # Man Lymphocytes # (Manual) Monocytes # (Manual) Eosinophils # (Manual) PT INR Fibrinogen dRVVT Confirm Interp Factor V Activity POC ABG pH POC ABG pCO2 POC ABG pO2 ABG pO2 ABG HCO3 ABG Base Excess ABG Hemoglobin Oxyhemoglobin Sodium 136 L Potassium Chloride 97.2 L Carbon Dioxide BUN 32 H Creatinine 1.3 H Glucose 123 H POC Glucose 125 H 108 H Lactic Acid Calcium 7.8 L Phosphorus Magnesium Direct Bilirubin AST ALT Alkaline Phosphatase Lactate Dehydrogenase Troponin T C-Reactive Protein Total Protein Albumin Prealbumin Triglycerides Cholesterol LDL Cholesterol Direct HDL Cholesterol Urine pH Urine WBC (Auto) Urine Creatinine Urine Total Protein Fluid Total Protein Vancomycin Trough Rheumatoid Factor Complement C4 Miscellaneous Test Crossmatch 11/05/16 11/05/16 11/05/16 12:23 13:09 13:25 WBC RBC Hgb Hct MCV MCH MCHC RDW Plt Count Lymph % (Auto) [place] % (Auto) Lymph # [place] # Baso # Seg Neutrophils % Seg Neuts % (Manual) Lymphocytes % (Manual) Monocytes % (Manual) Eosinophils % (Manual) Basophils % (Manual) Nucleated RBC % Seg Neutrophils # Seg Neutrophils # Man Lymphocytes # (Manual) Monocytes # (Manual) Eosinophils # (Manual) PT INR Fibrinogen dRVVT Confirm Interp Factor V Activity POC ABG pH POC ABG pCO2 POC ABG pO2 ABG pO2 ABG HCO3 ABG Base Excess ABG Hemoglobin Oxyhemoglobin Sodium Potassium Chloride Carbon Dioxide BUN Creatinine Glucose POC Glucose 124 H Lactic Acid Calcium Phosphorus Magnesium Direct Bilirubin AST ALT Alkaline Phosphatase Lactate Dehydrogenase Troponin T C-Reactive Protein 11.40 H Total Protein Albumin Prealbumin Triglycerides Cholesterol LDL Cholesterol Direct HDL Cholesterol Urine pH 9.0 H Urine WBC (Auto) Urine Creatinine Urine Total Protein Fluid Total Protein Vancomycin Trough Rheumatoid Factor Complement C4 Miscellaneous Test Crossmatch 11/05/16 11/05/16 11/05/16 13:25 17:54 23:42 WBC RBC Hgb Hct MCV MCH MCHC RDW Plt Count Lymph % (Auto) [place] % (Auto) Lymph # [place] # Baso # Seg Neutrophils % Seg Neuts % (Manual) Lymphocytes % (Manual) Monocytes % (Manual) Eosinophils % (Manual) Basophils % (Manual) Nucleated RBC % Seg Neutrophils # Seg Neutrophils # Man Lymphocytes # (Manual) Monocytes # (Manual) Eosinophils # (Manual) PT INR Fibrinogen dRVVT Confirm Interp Factor V Activity POC ABG pH POC ABG pCO2 POC ABG pO2 ABG pO2 ABG HCO3 ABG Base Excess ABG Hemoglobin Oxyhemoglobin Sodium Potassium Chloride Carbon Dioxide BUN Creatinine Glucose POC Glucose 114 H 134 H Lactic Acid Calcium Phosphorus Magnesium Direct Bilirubin AST ALT Alkaline Phosphatase Lactate Dehydrogenase Troponin T C-Reactive Protein Total Protein Albumin Prealbumin Triglycerides Cholesterol LDL Cholesterol Direct HDL Cholesterol Urine pH Urine WBC (Auto) Urine Creatinine Urine Total Protein Fluid Total Protein Vancomycin Trough Rheumatoid Factor Complement C4 Miscellaneous Test Flexitest 1 H Crossmatch 11/06/16 11/06/16 11/06/16 04:56 06:25 06:25 WBC RBC 2.50 L Hgb 7.3 L Hct 22.5 L MCV MCH MCHC RDW 16.9 H Plt Count Lymph % (Auto) [place] % (Auto) 10.5 H Lymph # [place] # 1.1 H Baso # Seg Neutrophils % Seg Neuts % (Manual) Lymphocytes % (Manual) Monocytes % (Manual) Eosinophils % (Manual) Basophils % (Manual) Nucleated RBC % Seg Neutrophils # Seg Neutrophils # Man Lymphocytes # (Manual) Monocytes # (Manual) Eosinophils # (Manual) PT INR Fibrinogen dRVVT Confirm Interp Factor V Activity POC ABG pH POC ABG pCO2 POC ABG pO2 ABG pO2 ABG HCO3 ABG Base Excess ABG Hemoglobin Oxyhemoglobin Sodium Potassium 5.1 H Chloride 95.9 L Carbon Dioxide BUN 52 H Creatinine 1.8 H Glucose 117 H POC Glucose 120 H Lactic Acid Calcium Phosphorus Magnesium Direct Bilirubin AST 103 H ALT 77 H Alkaline Phosphatase 285 H Lactate Dehydrogenase Troponin T C-Reactive Protein Total Protein 6.2 L Albumin 1.8 L Prealbumin 0.180 L Triglycerides Cholesterol LDL Cholesterol Direct HDL Cholesterol Urine pH Urine WBC (Auto) Urine Creatinine Urine Total Protein Fluid Total Protein Vancomycin Trough Rheumatoid Factor Complement C4 Miscellaneous Test Crossmatch 11/06/16 11/06/16 11/06/16 11:56 17:14 23:52 WBC RBC Hgb Hct MCV MCH MCHC RDW Plt Count Lymph % (Auto) [place] % (Auto) Lymph # [place] # Baso # Seg Neutrophils % Seg Neuts % (Manual) Lymphocytes % (Manual) Monocytes % (Manual) Eosinophils % (Manual) Basophils % (Manual) Nucleated RBC % Seg Neutrophils # Seg Neutrophils # Man Lymphocytes # (Manual) Monocytes # (Manual) Eosinophils # (Manual) PT INR Fibrinogen dRVVT Confirm Interp Factor V Activity POC ABG pH POC ABG pCO2 POC ABG pO2 ABG pO2 ABG HCO3 ABG Base Excess ABG Hemoglobin Oxyhemoglobin Sodium Potassium Chloride Carbon Dioxide BUN Creatinine Glucose POC Glucose 141 H 125 H 130 H Lactic Acid Calcium Phosphorus Magnesium Direct Bilirubin AST ALT Alkaline Phosphatase Lactate Dehydrogenase Troponin T C-Reactive Protein Total Protein Albumin Prealbumin Triglycerides Cholesterol LDL Cholesterol Direct HDL Cholesterol Urine pH Urine WBC (Auto) Urine Creatinine Urine Total Protein Fluid Total Protein Vancomycin Trough Rheumatoid Factor Complement C4 Miscellaneous Test Crossmatch 11/07/16 11/07/16 11/07/16 06:30 06:30 09:37 WBC RBC 2.18 L Hgb 6.3 L Hct 19.7 L* MCV MCH MCHC RDW 16.8 H Plt Count Lymph % (Auto) [place] % (Auto) 10.0 H Lymph # [place] # 1.0 H Baso # Seg Neutrophils % Seg Neuts % (Manual) Lymphocytes % (Manual) Monocytes % (Manual) Eosinophils % (Manual) Basophils % (Manual) Nucleated RBC % Seg Neutrophils # Seg Neutrophils # Man Lymphocytes # (Manual) Monocytes # (Manual) Eosinophils # (Manual) PT INR Fibrinogen dRVVT Confirm Interp Factor V Activity POC ABG pH POC ABG pCO2 POC ABG pO2 ABG pO2 ABG HCO3 ABG Base Excess ABG Hemoglobin Oxyhemoglobin Sodium 135 L Potassium Chloride 95.6 L Carbon Dioxide BUN 70 H Creatinine 2.0 H Glucose 126 H POC Glucose Lactic Acid Calcium Phosphorus Magnesium Direct Bilirubin AST ALT Alkaline Phosphatase Lactate Dehydrogenase Troponin T C-Reactive Protein Total Protein Albumin Prealbumin Triglycerides Cholesterol LDL Cholesterol Direct HDL Cholesterol Urine pH Urine WBC (Auto) Urine Creatinine Urine Total Protein Fluid Total Protein Vancomycin Trough Rheumatoid Factor Complement C4 Miscellaneous Test Crossmatch See Detail 11/07/16 11/07/16 11/07/16 12:52 18:51 21:26 WBC RBC Hgb Hct MCV MCH MCHC RDW Plt Count Lymph % (Auto) [place] % (Auto) Lymph # [place] # Baso # Seg Neutrophils % Seg Neuts % (Manual) Lymphocytes % (Manual) Monocytes % (Manual) Eosinophils % (Manual) Basophils % (Manual) Nucleated RBC % Seg Neutrophils # Seg Neutrophils # Man Lymphocytes # (Manual) Monocytes # (Manual) Eosinophils # (Manual) PT INR Fibrinogen dRVVT Confirm Interp Factor V Activity POC ABG pH 7.523 H POC ABG pCO2 34.6 L POC ABG pO2 53 L ABG pO2 ABG HCO3 ABG Base Excess ABG Hemoglobin Oxyhemoglobin Sodium Potassium Chloride Carbon Dioxide BUN Creatinine Glucose POC Glucose 142 H 155 H Lactic Acid Calcium Phosphorus Magnesium Direct Bilirubin AST ALT Alkaline Phosphatase Lactate Dehydrogenase Troponin T C-Reactive Protein Total Protein Albumin Prealbumin Triglycerides Cholesterol LDL Cholesterol Direct HDL Cholesterol Urine pH Urine WBC (Auto) Urine Creatinine Urine Total Protein Fluid Total Protein Vancomycin Trough Rheumatoid Factor Complement C4 Miscellaneous Test Crossmatch 11/07/16 11/08/16 11/08/16 21:34 13:03 23:37 WBC RBC 2.63 L Hgb 7.7 L Hct 22.7 L MCV MCH MCHC RDW 17.0 H Plt Count Lymph % (Auto) [place] % (Auto) Lymph # [place] # Baso # Seg Neutrophils % Seg Neuts % (Manual) Lymphocytes % (Manual) Monocytes % (Manual) Eosinophils % (Manual) Basophils % (Manual) Nucleated RBC % Seg Neutrophils # Seg Neutrophils # Man Lymphocytes # (Manual) Monocytes # (Manual) Eosinophils # (Manual) PT INR Fibrinogen dRVVT Confirm Interp Factor V Activity POC ABG pH 7.478 H POC ABG pCO2 34.0 L POC ABG pO2 50 L ABG pO2 ABG HCO3 ABG Base Excess ABG Hemoglobin Oxyhemoglobin Sodium Potassium Chloride Carbon Dioxide BUN Creatinine Glucose POC Glucose 113 H Lactic Acid Calcium Phosphorus Magnesium Direct Bilirubin AST ALT Alkaline Phosphatase Lactate Dehydrogenase Troponin T C-Reactive Protein Total Protein Albumin Prealbumin Triglycerides Cholesterol LDL Cholesterol Direct HDL Cholesterol Urine pH Urine WBC (Auto) Urine Creatinine Urine Total Protein Fluid Total Protein Vancomycin Trough Rheumatoid Factor Complement C4 Miscellaneous Test Crossmatch 11/09/16 11/09/16 11/09/16 04:35 10:15 18:21 WBC RBC 2.68 L Hgb 7.8 L Hct 23.3 L MCV MCH MCHC RDW 17.0 H Plt Count Lymph % (Auto) [place] % (Auto) 12.1 H Lymph # [place] # 1.1 H Baso # Seg Neutrophils % Seg Neuts % (Manual) Lymphocytes % (Manual) Monocytes % (Manual) Eosinophils % (Manual) Basophils % (Manual) Nucleated RBC % Seg Neutrophils # Seg Neutrophils # Man Lymphocytes # (Manual) Monocytes # (Manual) Eosinophils # (Manual) PT INR Fibrinogen dRVVT Confirm Interp Factor V Activity POC ABG pH POC ABG pCO2 POC ABG pO2 ABG pO2 ABG HCO3 ABG Base Excess ABG Hemoglobin Oxyhemoglobin Sodium Potassium Chloride Carbon Dioxide BUN 51 H Creatinine 1.8 H Glucose POC Glucose 60 L Lactic Acid Calcium 8.3 L Phosphorus Magnesium Direct Bilirubin AST ALT Alkaline Phosphatase Lactate Dehydrogenase Troponin T C-Reactive Protein Total Protein Albumin Prealbumin Triglycerides Cholesterol LDL Cholesterol Direct HDL Cholesterol Urine pH Urine WBC (Auto) Urine Creatinine Urine Total Protein Fluid Total Protein Vancomycin Trough Rheumatoid Factor Complement C4 Miscellaneous Test Crossmatch 11/09/16 11/10/16 11/10/16 18:55 07:00 11:51 WBC RBC Hgb Hct MCV MCH MCHC RDW Plt Count Lymph % (Auto) [place] % (Auto) Lymph # [place] # Baso # Seg Neutrophils % Seg Neuts % (Manual) Lymphocytes % (Manual) Monocytes % (Manual) Eosinophils % (Manual) Basophils % (Manual) Nucleated RBC % Seg Neutrophils # Seg Neutrophils # Man Lymphocytes # (Manual) Monocytes # (Manual) Eosinophils # (Manual) PT INR Fibrinogen dRVVT Confirm Interp Factor V Activity POC ABG pH POC ABG pCO2 POC ABG pO2 ABG pO2 ABG HCO3 ABG Base Excess ABG Hemoglobin Oxyhemoglobin Sodium Potassium 3.0 L D Chloride 97.4 L Carbon Dioxide BUN 28 H Creatinine 1.3 H Glucose POC Glucose 68 L 120 H Lactic Acid Calcium 7.8 L Phosphorus Magnesium Direct Bilirubin AST ALT Alkaline Phosphatase Lactate Dehydrogenase Troponin T C-Reactive Protein Total Protein Albumin Prealbumin Triglycerides Cholesterol LDL Cholesterol Direct HDL Cholesterol Urine pH Urine WBC (Auto) Urine Creatinine Urine Total Protein Fluid Total Protein Vancomycin Trough Rheumatoid Factor Complement C4 Miscellaneous Test Crossmatch 11/10/16 11/11/16 11/11/16 14:20 06:59 06:59 WBC RBC 2.81 L Hgb 8.1 L Hct 24.4 L MCV MCH MCHC RDW 16.4 H Plt Count Lymph % (Auto) [place] % (Auto) 10.8 H Lymph # [place] # 1.0 H Baso # Seg Neutrophils % Seg Neuts % (Manual) Lymphocytes % (Manual) Monocytes % (Manual) Eosinophils % (Manual) Basophils % (Manual) Nucleated RBC % Seg Neutrophils # Seg Neutrophils # Man Lymphocytes # (Manual) Monocytes # (Manual) Eosinophils # (Manual) PT INR Fibrinogen dRVVT Confirm Interp Factor V Activity POC ABG pH POC ABG pCO2 POC ABG pO2 ABG pO2 ABG HCO3 ABG Base Excess ABG Hemoglobin Oxyhemoglobin Sodium Potassium Chloride Carbon Dioxide BUN Creatinine Glucose POC Glucose Lactic Acid Calcium Phosphorus Magnesium Direct Bilirubin AST ALT Alkaline Phosphatase Lactate Dehydrogenase 196 H Troponin T C-Reactive Protein Total Protein 6.1 L Albumin Prealbumin Triglycerides Cholesterol LDL Cholesterol Direct HDL Cholesterol Urine pH Urine WBC (Auto) Urine Creatinine Urine Total Protein Fluid Total Protein < 3.0 L Vancomycin Trough Rheumatoid Factor Complement C4 Miscellaneous Test Crossmatch 11/11/16 11/11/16 11/12/16 06:59 09:50 04:00 WBC RBC Hgb Hct MCV MCH MCHC RDW Plt Count Lymph % (Auto) [place] % (Auto) Lymph # [place] # Baso # Seg Neutrophils % Seg Neuts % (Manual) Lymphocytes % (Manual) Monocytes % (Manual) Eosinophils % (Manual) Basophils % (Manual) Nucleated RBC % Seg Neutrophils # Seg Neutrophils # Man Lymphocytes # (Manual) Monocytes # (Manual) Eosinophils # (Manual) PT INR 1.18 H Fibrinogen dRVVT Confirm Interp Factor V Activity POC ABG pH POC ABG pCO2 POC ABG pO2 ABG pO2 ABG HCO3 ABG Base Excess ABG Hemoglobin Oxyhemoglobin Sodium 136 L 133 L Potassium Chloride 96.1 L 94.8 L Carbon Dioxide 21 L BUN 37 H 42 H Creatinine 1.8 H 2.0 H Glucose POC Glucose Lactic Acid Calcium Phosphorus Magnesium Direct Bilirubin AST ALT Alkaline Phosphatase Lactate Dehydrogenase Troponin T C-Reactive Protein Total Protein Albumin Prealbumin Triglycerides Cholesterol LDL Cholesterol Direct HDL Cholesterol Urine pH Urine WBC (Auto) Urine Creatinine Urine Total Protein Fluid Total Protein Vancomycin Trough Rheumatoid Factor Complement C4 Miscellaneous Test Crossmatch 11/12/16 11/12/16 11/13/16 04:00 23:55 05:53 WBC RBC Hgb 8.9 L Hct 27.2 L MCV MCH MCHC RDW Plt Count Lymph % (Auto) [place] % (Auto) Lymph # [place] # Baso # Seg Neutrophils % Seg Neuts % (Manual) Lymphocytes % (Manual) Monocytes % (Manual) Eosinophils % (Manual) Basophils % (Manual) Nucleated RBC % Seg Neutrophils # Seg Neutrophils # Man Lymphocytes # (Manual) Monocytes # (Manual) Eosinophils # (Manual) PT INR Fibrinogen dRVVT Confirm Interp Factor V Activity POC ABG pH POC ABG pCO2 POC ABG pO2 ABG pO2 ABG HCO3 ABG Base Excess ABG Hemoglobin Oxyhemoglobin Sodium Potassium Chloride Carbon Dioxide BUN Creatinine Glucose POC Glucose 132 H 120 H Lactic Acid Calcium Phosphorus Magnesium Direct Bilirubin AST ALT Alkaline Phosphatase Lactate Dehydrogenase Troponin T C-Reactive Protein Total Protein Albumin Prealbumin Triglycerides Cholesterol LDL Cholesterol Direct HDL Cholesterol Urine pH Urine WBC (Auto) Urine Creatinine Urine Total Protein Fluid Total Protein Vancomycin Trough Rheumatoid Factor Complement C4 Miscellaneous Test Crossmatch 11/13/16 11/13/16 11/13/16 11:43 17:09 23:41 WBC RBC Hgb Hct MCV MCH MCHC RDW Plt Count Lymph % (Auto) [place] % (Auto) Lymph # [place] # Baso # Seg Neutrophils % Seg Neuts % (Manual) Lymphocytes % (Manual) Monocytes % (Manual) Eosinophils % (Manual) Basophils % (Manual) Nucleated RBC % Seg Neutrophils # Seg Neutrophils # Man Lymphocytes # (Manual) Monocytes # (Manual) Eosinophils # (Manual) PT INR Fibrinogen dRVVT Confirm Interp Factor V Activity POC ABG pH POC ABG pCO2 POC ABG pO2 ABG pO2 ABG HCO3 ABG Base Excess ABG Hemoglobin Oxyhemoglobin Sodium Potassium Chloride Carbon Dioxide BUN Creatinine Glucose POC Glucose 114 H 113 H 108 H Lactic Acid Calcium Phosphorus Magnesium Direct Bilirubin AST ALT Alkaline Phosphatase Lactate Dehydrogenase Troponin T C-Reactive Protein Total Protein Albumin Prealbumin Triglycerides Cholesterol LDL Cholesterol Direct HDL Cholesterol Urine pH Urine WBC (Auto) Urine Creatinine Urine Total Protein Fluid Total Protein Vancomycin Trough Rheumatoid Factor Complement C4 Miscellaneous Test Crossmatch 11/13/16 11/15/16 11/15/16 Unknown 00:37 03:30 WBC 11.2 H RBC 2.72 L Hgb 7.6 L Hct 23.4 L MCV MCH MCHC RDW 16.5 H Plt Count Lymph % (Auto) [place] % (Auto) Lymph # [place] # Baso # Seg Neutrophils % Seg Neuts % (Manual) Lymphocytes % (Manual) Monocytes % (Manual) Eosinophils % (Manual) Basophils % (Manual) Nucleated RBC % Seg Neutrophils # Seg Neutrophils # Man Lymphocytes # (Manual) Monocytes # (Manual) Eosinophils # (Manual) PT INR Fibrinogen dRVVT Confirm Interp Factor V Activity POC ABG pH POC ABG pCO2 POC ABG pO2 ABG pO2 ABG HCO3 ABG Base Excess ABG Hemoglobin Oxyhemoglobin Sodium 135 L Potassium Chloride 95.2 L Carbon Dioxide BUN 52 H Creatinine 2.2 H Glucose POC Glucose 108 H Lactic Acid Calcium Phosphorus Magnesium Direct Bilirubin AST ALT Alkaline Phosphatase Lactate Dehydrogenase Troponin T C-Reactive Protein Total Protein Albumin Prealbumin Triglycerides Cholesterol LDL Cholesterol Direct HDL Cholesterol Urine pH Urine WBC (Auto) Urine Creatinine Urine Total Protein Fluid Total Protein Vancomycin Trough Rheumatoid Factor Complement C4 Miscellaneous Test Crossmatch 11/15/16 11/15/16 11/15/16 03:30 05:04 11:50 WBC RBC Hgb Hct MCV MCH MCHC RDW Plt Count Lymph % (Auto) [place] % (Auto) Lymph # [place] # Baso # Seg Neutrophils % Seg Neuts % (Manual) Lymphocytes % (Manual) Monocytes % (Manual) Eosinophils % (Manual) Basophils % (Manual) Nucleated RBC % Seg Neutrophils # Seg Neutrophils # Man Lymphocytes # (Manual) Monocytes # (Manual) Eosinophils # (Manual) PT INR Fibrinogen dRVVT Confirm Interp Factor V Activity POC ABG pH POC ABG pCO2 POC ABG pO2 ABG pO2 ABG HCO3 ABG Base Excess ABG Hemoglobin Oxyhemoglobin Sodium Potassium 3.4 L Chloride Carbon Dioxide BUN 25 H Creatinine 1.5 H Glucose 103 H POC Glucose 121 H 144 H Lactic Acid Calcium Phosphorus Magnesium Direct Bilirubin AST ALT Alkaline Phosphatase Lactate Dehydrogenase Troponin T C-Reactive Protein Total Protein Albumin Prealbumin Triglycerides Cholesterol LDL Cholesterol Direct HDL Cholesterol Urine pH Urine WBC (Auto) Urine Creatinine Urine Total Protein Fluid Total Protein Vancomycin Trough Rheumatoid Factor Complement C4 Miscellaneous Test Crossmatch 11/15/16 11/15/16 11/16/16 21:28 23:20 11:44 WBC RBC Hgb Hct MCV MCH MCHC RDW Plt Count Lymph % (Auto) [place] % (Auto) Lymph # [place] # Baso # Seg Neutrophils % Seg Neuts % (Manual) Lymphocytes % (Manual) Monocytes % (Manual) Eosinophils % (Manual) Basophils % (Manual) Nucleated RBC % Seg Neutrophils # Seg Neutrophils # Man Lymphocytes # (Manual) Monocytes # (Manual) Eosinophils # (Manual) PT INR Fibrinogen dRVVT Confirm Interp Factor V Activity POC ABG pH 7.462 H POC ABG pCO2 POC ABG pO2 71 L ABG pO2 ABG HCO3 ABG Base Excess ABG Hemoglobin Oxyhemoglobin Sodium Potassium Chloride Carbon Dioxide BUN Creatinine Glucose POC Glucose 116 H 133 H Lactic Acid Calcium Phosphorus Magnesium Direct Bilirubin AST ALT Alkaline Phosphatase Lactate Dehydrogenase Troponin T C-Reactive Protein Total Protein Albumin Prealbumin Triglycerides Cholesterol LDL Cholesterol Direct HDL Cholesterol Urine pH Urine WBC (Auto) Urine Creatinine Urine Total Protein Fluid Total Protein Vancomycin Trough Rheumatoid Factor Complement C4 Miscellaneous Test Crossmatch 11/16/16 11/16/16 11/16/16 12:20 17:05 23:35 WBC 11.7 H RBC 2.73 L Hgb 7.6 L Hct 23.7 L MCV MCH MCHC RDW 16.6 H Plt Count Lymph % (Auto) [place] % (Auto) Lymph # [place] # Baso # Seg Neutrophils % Seg Neuts % (Manual) Lymphocytes % (Manual) Monocytes % (Manual) Eosinophils % (Manual) Basophils % (Manual) Nucleated RBC % Seg Neutrophils # Seg Neutrophils # Man Lymphocytes # (Manual) Monocytes # (Manual) Eosinophils # (Manual) PT INR Fibrinogen dRVVT Confirm Interp Factor V Activity POC ABG pH POC ABG pCO2 POC ABG pO2 ABG pO2 ABG HCO3 ABG Base Excess ABG Hemoglobin Oxyhemoglobin Sodium Potassium Chloride Carbon Dioxide BUN Creatinine Glucose POC Glucose 154 H 125 H Lactic Acid Calcium Phosphorus Magnesium Direct Bilirubin AST ALT Alkaline Phosphatase Lactate Dehydrogenase Troponin T C-Reactive Protein Total Protein Albumin Prealbumin Triglycerides Cholesterol LDL Cholesterol Direct HDL Cholesterol Urine pH Urine WBC (Auto) Urine Creatinine Urine Total Protein Fluid Total Protein Vancomycin Trough Rheumatoid Factor Complement C4 Miscellaneous Test Crossmatch 11/17/16 11/17/16 11/17/16 03:20 03:20 03:20 WBC RBC 2.55 L Hgb 7.3 L Hct 21.9 L MCV MCH MCHC RDW 16.6 H Plt Count Lymph % (Auto) [place] % (Auto) 11.5 H Lymph # [place] # 1.1 H Baso # Seg Neutrophils % Seg Neuts % (Manual) Lymphocytes % (Manual) Monocytes % (Manual) Eosinophils % (Manual) Basophils % (Manual) Nucleated RBC % Seg Neutrophils # Seg Neutrophils # Man Lymphocytes # (Manual) Monocytes # (Manual) Eosinophils # (Manual) PT 16.8 H INR 1.37 H Fibrinogen dRVVT Confirm Interp Factor V Activity POC ABG pH POC ABG pCO2 POC ABG pO2 ABG pO2 ABG HCO3 ABG Base Excess ABG Hemoglobin Oxyhemoglobin Sodium Potassium 3.5 L Chloride Carbon Dioxide BUN 21 H Creatinine Glucose POC Glucose Lactic Acid Calcium 7.9 L Phosphorus Magnesium Direct Bilirubin AST ALT Alkaline Phosphatase Lactate Dehydrogenase Troponin T C-Reactive Protein Total Protein Albumin Prealbumin Triglycerides Cholesterol LDL Cholesterol Direct HDL Cholesterol Urine pH Urine WBC (Auto) Urine Creatinine Urine Total Protein Fluid Total Protein Vancomycin Trough Rheumatoid Factor Complement C4 Miscellaneous Test Crossmatch 11/17/16 11/17/16 11/17/16 06:34 11:21 21:22 WBC RBC Hgb Hct MCV MCH MCHC RDW Plt Count Lymph % (Auto) [place] % (Auto) Lymph # [place] # Baso # Seg Neutrophils % Seg Neuts % (Manual) Lymphocytes % (Manual) Monocytes % (Manual) Eosinophils % (Manual) Basophils % (Manual) Nucleated RBC % Seg Neutrophils # Seg Neutrophils # Man Lymphocytes # (Manual) Monocytes # (Manual) Eosinophils # (Manual) PT INR Fibrinogen dRVVT Confirm Interp Factor V Activity POC ABG pH 7.467 H POC ABG pCO2 POC ABG pO2 73 L ABG pO2 ABG HCO3 ABG Base Excess ABG Hemoglobin Oxyhemoglobin Sodium Potassium Chloride Carbon Dioxide BUN Creatinine Glucose POC Glucose 121 H 119 H Lactic Acid Calcium Phosphorus Magnesium Direct Bilirubin AST ALT Alkaline Phosphatase Lactate Dehydrogenase Troponin T C-Reactive Protein Total Protein Albumin Prealbumin Triglycerides Cholesterol LDL Cholesterol Direct HDL Cholesterol Urine pH Urine WBC (Auto) Urine Creatinine Urine Total Protein Fluid Total Protein Vancomycin Trough Rheumatoid Factor Complement C4 Miscellaneous Test Crossmatch 11/18/16 11/18/16 11/19/16 12:16 17:19 00:00 WBC RBC Hgb Hct MCV MCH MCHC RDW Plt Count Lymph % (Auto) [place] % (Auto) Lymph # [place] # Baso # Seg Neutrophils % Seg Neuts % (Manual) Lymphocytes % (Manual) Monocytes % (Manual) Eosinophils % (Manual) Basophils % (Manual) Nucleated RBC % Seg Neutrophils # Seg Neutrophils # Man Lymphocytes # (Manual) Monocytes # (Manual) Eosinophils # (Manual) PT INR Fibrinogen dRVVT Confirm Interp Factor V Activity POC ABG pH POC ABG pCO2 POC ABG pO2 ABG pO2 ABG HCO3 ABG Base Excess ABG Hemoglobin Oxyhemoglobin Sodium Potassium Chloride Carbon Dioxide BUN Creatinine Glucose POC Glucose 124 H 162 H 139 H Lactic Acid Calcium Phosphorus Magnesium Direct Bilirubin AST ALT Alkaline Phosphatase Lactate Dehydrogenase Troponin T C-Reactive Protein Total Protein Albumin Prealbumin Triglycerides Cholesterol LDL Cholesterol Direct HDL Cholesterol Urine pH Urine WBC (Auto) Urine Creatinine Urine Total Protein Fluid Total Protein Vancomycin Trough Rheumatoid Factor Complement C4 Miscellaneous Test Crossmatch 11/19/16 11/19/16 11/20/16 05:00 12:43 00:40 WBC RBC Hgb Hct MCV MCH MCHC RDW Plt Count Lymph % (Auto) [place] % (Auto) Lymph # [place] # Baso # Seg Neutrophils % Seg Neuts % (Manual) Lymphocytes % (Manual) Monocytes % (Manual) Eosinophils % (Manual) Basophils % (Manual) Nucleated RBC % Seg Neutrophils # Seg Neutrophils # Man Lymphocytes # (Manual) Monocytes # (Manual) Eosinophils # (Manual) PT INR Fibrinogen dRVVT Confirm Interp Factor V Activity POC ABG pH POC ABG pCO2 POC ABG pO2 ABG pO2 ABG HCO3 ABG Base Excess ABG Hemoglobin Oxyhemoglobin Sodium Potassium Chloride Carbon Dioxide BUN Creatinine Glucose POC Glucose 110 H 125 H 136 H Lactic Acid Calcium Phosphorus Magnesium Direct Bilirubin AST ALT Alkaline Phosphatase Lactate Dehydrogenase Troponin T C-Reactive Protein Total Protein Albumin Prealbumin Triglycerides Cholesterol LDL Cholesterol Direct HDL Cholesterol Urine pH Urine WBC (Auto) Urine Creatinine Urine Total Protein Fluid Total Protein Vancomycin Trough Rheumatoid Factor Complement C4 Miscellaneous Test Crossmatch 11/20/16 11/20/16 11/20/16 05:00 05:00 05:51 WBC 13.1 H RBC 2.74 L Hgb 7.7 L Hct 23.6 L MCV MCH MCHC RDW 16.9 H Plt Count Lymph % (Auto) [place] % (Auto) 10.8 H Lymph # [place] # 1.4 H Baso # Seg Neutrophils % Seg Neuts % (Manual) Lymphocytes % (Manual) Monocytes % (Manual) Eosinophils % (Manual) Basophils % (Manual) Nucleated RBC % Seg Neutrophils # 7.9 H Seg Neutrophils # Man Lymphocytes # (Manual) Monocytes # (Manual) Eosinophils # (Manual) PT INR Fibrinogen dRVVT Confirm Interp Factor V Activity POC ABG pH POC ABG pCO2 POC ABG pO2 ABG pO2 ABG HCO3 ABG Base Excess ABG Hemoglobin Oxyhemoglobin Sodium Potassium Chloride Carbon Dioxide BUN 31 H Creatinine 1.8 H Glucose 129 H POC Glucose 133 H Lactic Acid Calcium Phosphorus Magnesium Direct Bilirubin AST ALT Alkaline Phosphatase Lactate Dehydrogenase Troponin T C-Reactive Protein Total Protein Albumin Prealbumin Triglycerides Cholesterol LDL Cholesterol Direct HDL Cholesterol Urine pH Urine WBC (Auto) Urine Creatinine Urine Total Protein Fluid Total Protein Vancomycin Trough Rheumatoid Factor Complement C4 Miscellaneous Test Crossmatch 11/20/16 11/20/16 11/21/16 12:40 18:10 01:20 WBC RBC Hgb Hct MCV MCH MCHC RDW Plt Count Lymph % (Auto) [place] % (Auto) Lymph # [place] # Baso # Seg Neutrophils % Seg Neuts % (Manual) Lymphocytes % (Manual) Monocytes % (Manual) Eosinophils % (Manual) Basophils % (Manual) Nucleated RBC % Seg Neutrophils # Seg Neutrophils # Man Lymphocytes # (Manual) Monocytes # (Manual) Eosinophils # (Manual) PT INR Fibrinogen dRVVT Confirm Interp Factor V Activity POC ABG pH POC ABG pCO2 POC ABG pO2 ABG pO2 ABG HCO3 ABG Base Excess ABG Hemoglobin Oxyhemoglobin Sodium Potassium Chloride Carbon Dioxide BUN Creatinine Glucose POC Glucose 134 H 138 H 136 H Lactic Acid Calcium Phosphorus Magnesium Direct Bilirubin AST ALT Alkaline Phosphatase Lactate Dehydrogenase Troponin T C-Reactive Protein Total Protein Albumin Prealbumin Triglycerides Cholesterol LDL Cholesterol Direct HDL Cholesterol Urine pH Urine WBC (Auto) Urine Creatinine Urine Total Protein Fluid Total Protein Vancomycin Trough Rheumatoid Factor Complement C4 Miscellaneous Test Crossmatch 11/21/16 11/21/16 11/21/16 07:04 07:45 07:45 WBC 22.0 H RBC 2.91 L Hgb 8.2 L Hct 25.4 L MCV MCH MCHC RDW 17.1 H Plt Count Lymph % (Auto) [place] % (Auto) Lymph # [place] # Baso # Seg Neutrophils % Seg Neuts % (Manual) Lymphocytes % (Manual) 8.0 L Monocytes % (Manual) Eosinophils % (Manual) Basophils % (Manual) Nucleated RBC % Seg Neutrophils # Seg Neutrophils # Man 14.7 H Lymphocytes # (Manual) Monocytes # (Manual) 1.1 H Eosinophils # (Manual) PT INR Fibrinogen dRVVT Confirm Interp Factor V Activity POC ABG pH POC ABG pCO2 POC ABG pO2 ABG pO2 ABG HCO3 ABG Base Excess ABG Hemoglobin Oxyhemoglobin Sodium Potassium Chloride Carbon Dioxide BUN 42 H Creatinine 2.0 H Glucose POC Glucose 108 H Lactic Acid Calcium Phosphorus Magnesium Direct Bilirubin AST ALT Alkaline Phosphatase Lactate Dehydrogenase Troponin T C-Reactive Protein Total Protein Albumin Prealbumin Triglycerides Cholesterol LDL Cholesterol Direct HDL Cholesterol Urine pH Urine WBC (Auto) Urine Creatinine Urine Total Protein Fluid Total Protein Vancomycin Trough Rheumatoid Factor Complement C4 Miscellaneous Test Crossmatch 11/21/16 11/21/16 11/21/16 08:38 10:09 11:20 WBC RBC Hgb Hct MCV MCH MCHC RDW Plt Count Lymph % (Auto) [place] % (Auto) Lymph # [place] # Baso # Seg Neutrophils % Seg Neuts % (Manual) Lymphocytes % (Manual) Monocytes % (Manual) Eosinophils % (Manual) Basophils % (Manual) Nucleated RBC % Seg Neutrophils # Seg Neutrophils # Man Lymphocytes # (Manual) Monocytes # (Manual) Eosinophils # (Manual) PT INR Fibrinogen dRVVT Confirm Interp Factor V Activity POC ABG pH 7.346 L POC ABG pCO2 34.4 L POC ABG pO2 314 H ABG pO2 ABG HCO3 ABG Base Excess ABG Hemoglobin Oxyhemoglobin Sodium Potassium Chloride Carbon Dioxide BUN Creatinine Glucose POC Glucose 195 H 153 H Lactic Acid Calcium Phosphorus Magnesium Direct Bilirubin AST ALT Alkaline Phosphatase Lactate Dehydrogenase Troponin T C-Reactive Protein Total Protein Albumin Prealbumin Triglycerides Cholesterol LDL Cholesterol Direct HDL Cholesterol Urine pH Urine WBC (Auto) Urine Creatinine Urine Total Protein Fluid Total Protein Vancomycin Trough Rheumatoid Factor Complement C4 Miscellaneous Test Crossmatch 11/21/16 11/22/16 11/22/16 23:37 04:48 05:00 WBC 29.7 H RBC 2.73 L Hgb 7.5 L Hct 24.2 L MCV MCH 27 L MCHC RDW 17.4 H Plt Count Lymph % (Auto) [place] % (Auto) Lymph # [place] # Baso # Seg Neutrophils % Seg Neuts % (Manual) Lymphocytes % (Manual) 7.0 L Monocytes % (Manual) Eosinophils % (Manual) Basophils % (Manual) Nucleated RBC % Seg Neutrophils # Seg Neutrophils # Man 15.4 H Lymphocytes # (Manual) Monocytes # (Manual) Eosinophils # (Manual) PT INR Fibrinogen dRVVT Confirm Interp Factor V Activity POC ABG pH POC ABG pCO2 24.6 L POC ABG pO2 189 H ABG pO2 ABG HCO3 ABG Base Excess ABG Hemoglobin Oxyhemoglobin Sodium Potassium Chloride Carbon Dioxide BUN Creatinine Glucose POC Glucose 65 L Lactic Acid Calcium Phosphorus Magnesium Direct Bilirubin AST ALT Alkaline Phosphatase Lactate Dehydrogenase Troponin T C-Reactive Protein Total Protein Albumin Prealbumin Triglycerides Cholesterol LDL Cholesterol Direct HDL Cholesterol Urine pH Urine WBC (Auto) Urine Creatinine Urine Total Protein Fluid Total Protein Vancomycin Trough Rheumatoid Factor Complement C4 Miscellaneous Test Crossmatch 11/22/16 11/23/16 11/23/16 05:00 03:44 04:06 WBC RBC 2.52 L Hgb 7.2 L Hct 21.5 L MCV MCH MCHC RDW 17.1 H Plt Count Lymph % (Auto) [place] % (Auto) 12.4 H Lymph # [place] # 1.4 H Baso # Seg Neutrophils % Seg Neuts % (Manual) Lymphocytes % (Manual) Monocytes % (Manual) Eosinophils % (Manual) Basophils % (Manual) Nucleated RBC % Seg Neutrophils # Seg Neutrophils # Man Lymphocytes # (Manual) Monocytes # (Manual) Eosinophils # (Manual) PT INR Fibrinogen dRVVT Confirm Interp Factor V Activity POC ABG pH 7.493 H POC ABG pCO2 29.5 L POC ABG pO2 49 L ABG pO2 ABG HCO3 ABG Base Excess ABG Hemoglobin Oxyhemoglobin Sodium 134 L Potassium Chloride 95.9 L Carbon Dioxide 14 L D BUN 51 H Creatinine 2.6 H Glucose POC Glucose Lactic Acid Calcium Phosphorus Magnesium Direct Bilirubin AST ALT Alkaline Phosphatase Lactate Dehydrogenase Troponin T C-Reactive Protein Total Protein Albumin Prealbumin Triglycerides Cholesterol LDL Cholesterol Direct HDL Cholesterol Urine pH Urine WBC (Auto) Urine Creatinine Urine Total Protein Fluid Total Protein Vancomycin Trough Rheumatoid Factor Complement C4 Miscellaneous Test Crossmatch 11/23/16 11/23/16 11/24/16 04:06 11:29 06:39 WBC RBC Hgb Hct MCV MCH MCHC RDW Plt Count Lymph % (Auto) [place] % (Auto) Lymph # [place] # Baso # Seg Neutrophils % Seg Neuts % (Manual) Lymphocytes % (Manual) Monocytes % (Manual) Eosinophils % (Manual) Basophils % (Manual) Nucleated RBC % Seg Neutrophils # Seg Neutrophils # Man Lymphocytes # (Manual) Monocytes # (Manual) Eosinophils # (Manual) PT INR Fibrinogen dRVVT Confirm Interp Factor V Activity POC ABG pH POC ABG pCO2 POC ABG pO2 ABG pO2 ABG HCO3 ABG Base Excess ABG Hemoglobin Oxyhemoglobin Sodium 136 L Potassium Chloride 95.2 L Carbon Dioxide BUN 60 H Creatinine 2.9 H Glucose POC Glucose 69 L 305 H Lactic Acid Calcium Phosphorus Magnesium 1.60 L Direct Bilirubin AST ALT Alkaline Phosphatase Lactate Dehydrogenase Troponin T C-Reactive Protein Total Protein Albumin Prealbumin Triglycerides Cholesterol LDL Cholesterol Direct HDL Cholesterol Urine pH Urine WBC (Auto) Urine Creatinine Urine Total Protein Fluid Total Protein Vancomycin Trough Rheumatoid Factor Complement C4 Miscellaneous Test Crossmatch 11/24/16 11/24/16 11/24/16 06:43 08:08 08:08 WBC 11.2 H RBC 2.47 L Hgb 6.8 L Hct 20.6 L MCV MCH MCHC RDW 17.0 H Plt Count Lymph % (Auto) [place] % (Auto) 10.3 H Lymph # [place] # 1.2 H Baso # Seg Neutrophils % Seg Neuts % (Manual) Lymphocytes % (Manual) Monocytes % (Manual) Eosinophils % (Manual) Basophils % (Manual) Nucleated RBC % Seg Neutrophils # Seg Neutrophils # Man Lymphocytes # (Manual) Monocytes # (Manual) Eosinophils # (Manual) PT INR Fibrinogen dRVVT Confirm Interp Factor V Activity POC ABG pH POC ABG pCO2 POC ABG pO2 ABG pO2 ABG HCO3 ABG Base Excess ABG Hemoglobin Oxyhemoglobin Sodium 135 L Potassium Chloride 96.3 L Carbon Dioxide BUN 61 H Creatinine 3.1 H Glucose POC Glucose 62 L Lactic Acid Calcium 8.2 L Phosphorus Magnesium Direct Bilirubin AST ALT Alkaline Phosphatase Lactate Dehydrogenase Troponin T C-Reactive Protein Total Protein Albumin Prealbumin Triglycerides Cholesterol LDL Cholesterol Direct HDL Cholesterol Urine pH Urine WBC (Auto) Urine Creatinine Urine Total Protein Fluid Total Protein Vancomycin Trough Rheumatoid Factor Complement C4 Miscellaneous Test Crossmatch 11/24/16 11/24/16 11/24/16 08:34 11:20 12:41 WBC RBC Hgb Hct MCV MCH MCHC RDW Plt Count Lymph % (Auto) [place] % (Auto) Lymph # [place] # Baso # Seg Neutrophils % Seg Neuts % (Manual) Lymphocytes % (Manual) Monocytes % (Manual) Eosinophils % (Manual) Basophils % (Manual) Nucleated RBC % Seg Neutrophils # Seg Neutrophils # Man Lymphocytes # (Manual) Monocytes # (Manual) Eosinophils # (Manual) PT INR Fibrinogen dRVVT Confirm Interp Factor V Activity POC ABG pH POC ABG pCO2 POC ABG pO2 ABG pO2 ABG HCO3 ABG Base Excess ABG Hemoglobin Oxyhemoglobin Sodium Potassium Chloride Carbon Dioxide BUN Creatinine Glucose POC Glucose 108 H Lactic Acid Calcium Phosphorus Magnesium 1.60 L Direct Bilirubin AST ALT Alkaline Phosphatase Lactate Dehydrogenase Troponin T C-Reactive Protein Total Protein Albumin Prealbumin Triglycerides Cholesterol LDL Cholesterol Direct HDL Cholesterol Urine pH Urine WBC (Auto) Urine Creatinine Urine Total Protein Fluid Total Protein Vancomycin Trough Rheumatoid Factor Complement C4 Miscellaneous Test Crossmatch See Detail 11/25/16 11/25/16 11/25/16 00:03 04:42 04:42 WBC RBC 3.03 L Hgb 8.6 L Hct 25.3 L MCV MCH MCHC RDW 16.2 H Plt Count Lymph % (Auto) [place] % (Auto) 8.1 H Lymph # [place] # Baso # Seg Neutrophils % 71.3 H Seg Neuts % (Manual) Lymphocytes % (Manual) Monocytes % (Manual) Eosinophils % (Manual) Basophils % (Manual) Nucleated RBC % Seg Neutrophils # Seg Neutrophils # Man Lymphocytes # (Manual) Monocytes # (Manual) Eosinophils # (Manual) PT INR Fibrinogen dRVVT Confirm Interp Factor V Activity POC ABG pH POC ABG pCO2 POC ABG pO2 ABG pO2 ABG HCO3 ABG Base Excess ABG Hemoglobin Oxyhemoglobin Sodium Potassium Chloride Carbon Dioxide BUN 61 H Creatinine 3.0 H Glucose 102 H POC Glucose 113 H Lactic Acid Calcium 8.2 L Phosphorus Magnesium Direct Bilirubin AST ALT Alkaline Phosphatase 142 H Lactate Dehydrogenase Troponin T C-Reactive Protein Total Protein 5.7 L Albumin 1.5 L Prealbumin Triglycerides Cholesterol LDL Cholesterol Direct HDL Cholesterol Urine pH Urine WBC (Auto) Urine Creatinine Urine Total Protein Fluid Total Protein Vancomycin Trough Rheumatoid Factor Complement C4 Miscellaneous Test Crossmatch 11/25/16 11/25/16 11/25/16 05:12 11:31 14:12 WBC RBC Hgb Hct MCV MCH MCHC RDW Plt Count Lymph % (Auto) [place] % (Auto) Lymph # [place] # Baso # Seg Neutrophils % Seg Neuts % (Manual) Lymphocytes % (Manual) Monocytes % (Manual) Eosinophils % (Manual) Basophils % (Manual) Nucleated RBC % Seg Neutrophils # Seg Neutrophils # Man Lymphocytes # (Manual) Monocytes # (Manual) Eosinophils # (Manual) PT INR Fibrinogen dRVVT Confirm Interp Factor V Activity POC ABG pH 7.487 H POC ABG pCO2 POC ABG pO2 153 H ABG pO2 ABG HCO3 ABG Base Excess ABG Hemoglobin Oxyhemoglobin Sodium Potassium Chloride Carbon Dioxide BUN Creatinine Glucose POC Glucose 131 H 140 H Lactic Acid Calcium Phosphorus Magnesium Direct Bilirubin AST ALT Alkaline Phosphatase Lactate Dehydrogenase Troponin T C-Reactive Protein Total Protein Albumin Prealbumin Triglycerides Cholesterol LDL Cholesterol Direct HDL Cholesterol Urine pH Urine WBC (Auto) Urine Creatinine Urine Total Protein Fluid Total Protein Vancomycin Trough Rheumatoid Factor Complement C4 Miscellaneous Test Crossmatch 11/25/16 11/26/16 11/26/16 17:23 00:09 05:13 WBC RBC 2.94 L Hgb 8.4 L Hct 24.6 L MCV MCH MCHC RDW 16.4 H Plt Count Lymph % (Auto) [place] % (Auto) 12.3 H Lymph # [place] # 1.1 H Baso # Seg Neutrophils % Seg Neuts % (Manual) Lymphocytes % (Manual) Monocytes % (Manual) Eosinophils % (Manual) Basophils % (Manual) Nucleated RBC % Seg Neutrophils # Seg Neutrophils # Man Lymphocytes # (Manual) Monocytes # (Manual) Eosinophils # (Manual) PT INR Fibrinogen dRVVT Confirm Interp Factor V Activity POC ABG pH POC ABG pCO2 POC ABG pO2 ABG pO2 ABG HCO3 ABG Base Excess ABG Hemoglobin Oxyhemoglobin Sodium Potassium Chloride Carbon Dioxide BUN Creatinine Glucose POC Glucose 146 H 112 H Lactic Acid Calcium Phosphorus Magnesium Direct Bilirubin AST ALT Alkaline Phosphatase Lactate Dehydrogenase Troponin T C-Reactive Protein Total Protein Albumin Prealbumin Triglycerides Cholesterol LDL Cholesterol Direct HDL Cholesterol Urine pH Urine WBC (Auto) Urine Creatinine Urine Total Protein Fluid Total Protein Vancomycin Trough Rheumatoid Factor Complement C4 Miscellaneous Test Crossmatch 11/26/16 11/26/16 11/26/16 05:13 05:28 11:53 WBC RBC Hgb Hct MCV MCH MCHC RDW Plt Count Lymph % (Auto) [place] % (Auto) Lymph # [place] # Baso # Seg Neutrophils % Seg Neuts % (Manual) Lymphocytes % (Manual) Monocytes % (Manual) Eosinophils % (Manual) Basophils % (Manual) Nucleated RBC % Seg Neutrophils # Seg Neutrophils # Man Lymphocytes # (Manual) Monocytes # (Manual) Eosinophils # (Manual) PT INR Fibrinogen dRVVT Confirm Interp Factor V Activity POC ABG pH POC ABG pCO2 POC ABG pO2 ABG pO2 ABG HCO3 ABG Base Excess ABG Hemoglobin Oxyhemoglobin Sodium Potassium Chloride 97.8 L Carbon Dioxide BUN 37 H Creatinine 2.0 H Glucose 109 H POC Glucose 117 H 111 H Lactic Acid Calcium 7.9 L Phosphorus 1.80 L D Magnesium Direct Bilirubin AST ALT Alkaline Phosphatase Lactate Dehydrogenase Troponin T C-Reactive Protein Total Protein Albumin Prealbumin Triglycerides Cholesterol LDL Cholesterol Direct HDL Cholesterol Urine pH Urine WBC (Auto) Urine Creatinine Urine Total Protein Fluid Total Protein Vancomycin Trough Rheumatoid Factor Complement C4 Miscellaneous Test Crossmatch 11/26/16 11/27/16 11/27/16 17:14 04:50 06:02 WBC RBC Hgb Hct MCV MCH MCHC RDW Plt Count Lymph % (Auto) [place] % (Auto) Lymph # [place] # Baso # Seg Neutrophils % Seg Neuts % (Manual) Lymphocytes % (Manual) Monocytes % (Manual) Eosinophils % (Manual) Basophils % (Manual) Nucleated RBC % Seg Neutrophils # Seg Neutrophils # Man Lymphocytes # (Manual) Monocytes # (Manual) Eosinophils # (Manual) PT INR Fibrinogen dRVVT Confirm Interp Factor V Activity POC ABG pH POC ABG pCO2 POC ABG pO2 ABG pO2 75.2 L ABG HCO3 26.4 H ABG Base Excess ABG Hemoglobin 7.6 L Oxyhemoglobin 94.8 L Sodium Potassium Chloride Carbon Dioxide BUN 49 H Creatinine 2.3 H Glucose POC Glucose 115 H Lactic Acid Calcium Phosphorus 1.50 L Magnesium Direct Bilirubin AST ALT Alkaline Phosphatase Lactate Dehydrogenase Troponin T C-Reactive Protein Total Protein Albumin Prealbumin Triglycerides Cholesterol LDL Cholesterol Direct HDL Cholesterol Urine pH Urine WBC (Auto) Urine Creatinine Urine Total Protein Fluid Total Protein Vancomycin Trough Rheumatoid Factor Complement C4 Miscellaneous Test Crossmatch 11/27/16 11/27/16 11/27/16 06:02 11:25 17:25 WBC 11.6 H RBC 2.75 L Hgb 7.6 L Hct 23.4 L MCV MCH MCHC RDW 16.5 H Plt Count Lymph % (Auto) [place] % (Auto) Lymph # [place] # Baso # Seg Neutrophils % Seg Neuts % (Manual) Lymphocytes % (Manual) Monocytes % (Manual) Eosinophils % (Manual) Basophils % (Manual) Nucleated RBC % Seg Neutrophils # Seg Neutrophils # Man Lymphocytes # (Manual) Monocytes # (Manual) Eosinophils # (Manual) PT INR Fibrinogen dRVVT Confirm Interp Factor V Activity POC ABG pH POC ABG pCO2 POC ABG pO2 ABG pO2 ABG HCO3 ABG Base Excess ABG Hemoglobin Oxyhemoglobin Sodium Potassium Chloride Carbon Dioxide BUN Creatinine Glucose POC Glucose 114 H 126 H Lactic Acid Calcium Phosphorus Magnesium Direct Bilirubin AST ALT Alkaline Phosphatase Lactate Dehydrogenase Troponin T C-Reactive Protein Total Protein Albumin Prealbumin Triglycerides Cholesterol LDL Cholesterol Direct HDL Cholesterol Urine pH Urine WBC (Auto) Urine Creatinine Urine Total Protein Fluid Total Protein Vancomycin Trough Rheumatoid Factor Complement C4 Miscellaneous Test Crossmatch 11/28/16 11/28/16 11/28/16 04:45 05:33 05:44 WBC RBC Hgb Hct MCV MCH MCHC RDW Plt Count Lymph % (Auto) [place] % (Auto) Lymph # [place] # Baso # Seg Neutrophils % Seg Neuts % (Manual) Lymphocytes % (Manual) Monocytes % (Manual) Eosinophils % (Manual) Basophils % (Manual) Nucleated RBC % Seg Neutrophils # Seg Neutrophils # Man Lymphocytes # (Manual) Monocytes # (Manual) Eosinophils # (Manual) PT INR Fibrinogen dRVVT Confirm Interp Factor V Activity POC ABG pH POC ABG pCO2 POC ABG pO2 ABG pO2 99.3 H ABG HCO3 ABG Base Excess ABG Hemoglobin 8.3 L Oxyhemoglobin Sodium Potassium Chloride Carbon Dioxide BUN 63 H Creatinine 2.4 H Glucose 102 H POC Glucose 108 H Lactic Acid Calcium Phosphorus 1.80 L Magnesium Direct Bilirubin AST ALT Alkaline Phosphatase Lactate Dehydrogenase Troponin T C-Reactive Protein Total Protein Albumin Prealbumin Triglycerides Cholesterol LDL Cholesterol Direct HDL Cholesterol Urine pH Urine WBC (Auto) Urine Creatinine Urine Total Protein Fluid Total Protein Vancomycin Trough Rheumatoid Factor Complement C4 Miscellaneous Test Crossmatch 11/28/16 11/28/16 11/28/16 12:31 16:09 23:46 WBC RBC Hgb Hct MCV MCH MCHC RDW Plt Count Lymph % (Auto) [place] % (Auto) Lymph # [place] # Baso # Seg Neutrophils % Seg Neuts % (Manual) Lymphocytes % (Manual) Monocytes % (Manual) Eosinophils % (Manual) Basophils % (Manual) Nucleated RBC % Seg Neutrophils # Seg Neutrophils # Man Lymphocytes # (Manual) Monocytes # (Manual) Eosinophils # (Manual) PT INR Fibrinogen dRVVT Confirm Interp Factor V Activity POC ABG pH POC ABG pCO2 POC ABG pO2 ABG pO2 ABG HCO3 ABG Base Excess ABG Hemoglobin Oxyhemoglobin Sodium Potassium Chloride Carbon Dioxide BUN Creatinine Glucose POC Glucose 126 H 111 H 119 H Lactic Acid Calcium Phosphorus Magnesium Direct Bilirubin AST ALT Alkaline Phosphatase Lactate Dehydrogenase Troponin T C-Reactive Protein Total Protein Albumin Prealbumin Triglycerides Cholesterol LDL Cholesterol Direct HDL Cholesterol Urine pH Urine WBC (Auto) Urine Creatinine Urine Total Protein Fluid Total Protein Vancomycin Trough Rheumatoid Factor Complement C4 Miscellaneous Test Crossmatch 11/29/16 11/29/16 11/29/16 03:33 04:52 05:10 WBC RBC Hgb Hct MCV MCH MCHC RDW Plt Count Lymph % (Auto) [place] % (Auto) Lymph # [place] # Baso # Seg Neutrophils % Seg Neuts % (Manual) Lymphocytes % (Manual) Monocytes % (Manual) Eosinophils % (Manual) Basophils % (Manual) Nucleated RBC % Seg Neutrophils # Seg Neutrophils # Man Lymphocytes # (Manual) Monocytes # (Manual) Eosinophils # (Manual) PT INR Fibrinogen dRVVT Confirm Interp Factor V Activity POC ABG pH POC ABG pCO2 POC ABG pO2 ABG pO2 ABG HCO3 ABG Base Excess ABG Hemoglobin 7.0 L Oxyhemoglobin 94.9 L Sodium Potassium Chloride Carbon Dioxide BUN 73 H Creatinine 2.7 H Glucose POC Glucose 108 H Lactic Acid Calcium Phosphorus Magnesium Direct Bilirubin AST ALT Alkaline Phosphatase Lactate Dehydrogenase Troponin T C-Reactive Protein Total Protein Albumin Prealbumin Triglycerides Cholesterol LDL Cholesterol Direct HDL Cholesterol Urine pH Urine WBC (Auto) Urine Creatinine Urine Total Protein Fluid Total Protein Vancomycin Trough Rheumatoid Factor Complement C4 Miscellaneous Test Crossmatch 11/29/16 11/29/16 11/29/16 12:16 18:05 23:46 WBC RBC Hgb Hct MCV MCH MCHC RDW Plt Count Lymph % (Auto) [place] % (Auto) Lymph # [place] # Baso # Seg Neutrophils % Seg Neuts % (Manual) Lymphocytes % (Manual) Monocytes % (Manual) Eosinophils % (Manual) Basophils % (Manual) Nucleated RBC % Seg Neutrophils # Seg Neutrophils # Man Lymphocytes # (Manual) Monocytes # (Manual) Eosinophils # (Manual) PT INR Fibrinogen dRVVT Confirm Interp Factor V Activity POC ABG pH POC ABG pCO2 POC ABG pO2 ABG pO2 ABG HCO3 ABG Base Excess ABG Hemoglobin Oxyhemoglobin Sodium Potassium Chloride Carbon Dioxide BUN Creatinine Glucose POC Glucose 133 H 146 H 141 H Lactic Acid Calcium Phosphorus Magnesium Direct Bilirubin AST ALT Alkaline Phosphatase Lactate Dehydrogenase Troponin T C-Reactive Protein Total Protein Albumin Prealbumin Triglycerides Cholesterol LDL Cholesterol Direct HDL Cholesterol Urine pH Urine WBC (Auto) Urine Creatinine Urine Total Protein Fluid Total Protein Vancomycin Trough Rheumatoid Factor Complement C4 Miscellaneous Test Crossmatch 11/30/16 11/30/16 11/30/16 04:17 04:17 04:32 WBC 12.0 H RBC 2.80 L Hgb 7.8 L Hct 23.6 L MCV MCH MCHC RDW 16.6 H Plt Count Lymph % (Auto) [place] % (Auto) 11.3 H Lymph # [place] # 1.4 H Baso # Seg Neutrophils % Seg Neuts % (Manual) Lymphocytes % (Manual) Monocytes % (Manual) Eosinophils % (Manual) Basophils % (Manual) Nucleated RBC % Seg Neutrophils # 8.2 H Seg Neutrophils # Man Lymphocytes # (Manual) Monocytes # (Manual) Eosinophils # (Manual) PT INR Fibrinogen dRVVT Confirm Interp Factor V Activity POC ABG pH POC ABG pCO2 POC ABG pO2 ABG pO2 ABG HCO3 ABG Base Excess ABG Hemoglobin Oxyhemoglobin Sodium 169 H* D Potassium 5.1 H Chloride 121.5 H Carbon Dioxide BUN 34 H Creatinine 1.3 H D Glucose 133 H POC Glucose 131 H Lactic Acid Calcium 10.3 H Phosphorus Magnesium Direct Bilirubin AST ALT Alkaline Phosphatase Lactate Dehydrogenase Troponin T C-Reactive Protein Total Protein Albumin Prealbumin Triglycerides Cholesterol LDL Cholesterol Direct HDL Cholesterol Urine pH Urine WBC (Auto) Urine Creatinine Urine Total Protein Fluid Total Protein Vancomycin Trough Rheumatoid Factor Complement C4 Miscellaneous Test Crossmatch 11/30/16 11/30/16 11/30/16 05:45 11:10 17:26 WBC RBC Hgb Hct MCV MCH MCHC RDW Plt Count Lymph % (Auto) [place] % (Auto) Lymph # [place] # Baso # Seg Neutrophils % Seg Neuts % (Manual) Lymphocytes % (Manual) Monocytes % (Manual) Eosinophils % (Manual) Basophils % (Manual) Nucleated RBC % Seg Neutrophils # Seg Neutrophils # Man Lymphocytes # (Manual) Monocytes # (Manual) Eosinophils # (Manual) PT INR Fibrinogen dRVVT Confirm Interp Factor V Activity POC ABG pH POC ABG pCO2 POC ABG pO2 ABG pO2 ABG HCO3 ABG Base Excess ABG Hemoglobin Oxyhemoglobin Sodium Potassium Chloride Carbon Dioxide BUN 45 H Creatinine 1.6 H Glucose 131 H POC Glucose 146 H 134 H Lactic Acid Calcium Phosphorus Magnesium Direct Bilirubin AST ALT Alkaline Phosphatase Lactate Dehydrogenase Troponin T C-Reactive Protein Total Protein Albumin Prealbumin Triglycerides Cholesterol LDL Cholesterol Direct HDL Cholesterol Urine pH Urine WBC (Auto) Urine Creatinine Urine Total Protein Fluid Total Protein Vancomycin Trough Rheumatoid Factor Complement C4 Miscellaneous Test Crossmatch 11/30/16 12/01/16 12/01/16 23:35 00:06 03:35 WBC RBC Hgb Hct MCV MCH MCHC RDW Plt Count Lymph % (Auto) [place] % (Auto) Lymph # [place] # Baso # Seg Neutrophils % Seg Neuts % (Manual) Lymphocytes % (Manual) Monocytes % (Manual) Eosinophils % (Manual) Basophils % (Manual) Nucleated RBC % Seg Neutrophils # Seg Neutrophils # Man Lymphocytes # (Manual) Monocytes # (Manual) Eosinophils # (Manual) PT INR Fibrinogen dRVVT Confirm Interp Factor V Activity POC ABG pH POC ABG pCO2 POC ABG pO2 ABG pO2 ABG HCO3 ABG Base Excess ABG Hemoglobin 6.9 L Oxyhemoglobin Sodium Potassium Chloride Carbon Dioxide BUN 58 H Creatinine 1.8 H Glucose 146 H POC Glucose 151 H Lactic Acid Calcium Phosphorus Magnesium Direct Bilirubin AST ALT Alkaline Phosphatase Lactate Dehydrogenase Troponin T C-Reactive Protein Total Protein Albumin Prealbumin Triglycerides Cholesterol LDL Cholesterol Direct HDL Cholesterol Urine pH Urine WBC (Auto) Urine Creatinine Urine Total Protein Fluid Total Protein Vancomycin Trough Rheumatoid Factor Complement C4 Miscellaneous Test Crossmatch 12/01/16 12/01/16 12/01/16 03:35 05:47 11:52 WBC 12.3 H RBC 2.82 L Hgb 7.8 L Hct 23.7 L MCV MCH MCHC RDW 16.7 H Plt Count Lymph % (Auto) [place] % (Auto) 9.8 H Lymph # [place] # 1.2 H Baso # Seg Neutrophils % Seg Neuts % (Manual) Lymphocytes % (Manual) Monocytes % (Manual) Eosinophils % (Manual) Basophils % (Manual) Nucleated RBC % Seg Neutrophils # 8.4 H Seg Neutrophils # Man Lymphocytes # (Manual) Monocytes # (Manual) Eosinophils # (Manual) PT INR Fibrinogen dRVVT Confirm Interp Factor V Activity POC ABG pH POC ABG pCO2 POC ABG pO2 ABG pO2 ABG HCO3 ABG Base Excess ABG Hemoglobin Oxyhemoglobin Sodium Potassium Chloride Carbon Dioxide BUN Creatinine Glucose POC Glucose 152 H 152 H Lactic Acid Calcium Phosphorus Magnesium Direct Bilirubin AST ALT Alkaline Phosphatase Lactate Dehydrogenase Troponin T C-Reactive Protein Total Protein Albumin Prealbumin Triglycerides Cholesterol LDL Cholesterol Direct HDL Cholesterol Urine pH Urine WBC (Auto) Urine Creatinine Urine Total Protein Fluid Total Protein Vancomycin Trough Rheumatoid Factor Complement C4 Miscellaneous Test Crossmatch 12/01/16 12/01/16 12/02/16 17:40 23:41 05:00 WBC RBC Hgb Hct MCV MCH MCHC RDW Plt Count Lymph % (Auto) [place] % (Auto) Lymph # [place] # Baso # Seg Neutrophils % Seg Neuts % (Manual) Lymphocytes % (Manual) Monocytes % (Manual) Eosinophils % (Manual) Basophils % (Manual) Nucleated RBC % Seg Neutrophils # Seg Neutrophils # Man Lymphocytes # (Manual) Monocytes # (Manual) Eosinophils # (Manual) PT INR Fibrinogen dRVVT Confirm Interp Factor V Activity POC ABG pH POC ABG pCO2 POC ABG pO2 ABG pO2 ABG HCO3 ABG Base Excess ABG Hemoglobin Oxyhemoglobin Sodium Potassium Chloride Carbon Dioxide BUN 45 H Creatinine Glucose 115 H POC Glucose 140 H 144 H Lactic Acid Calcium Phosphorus Magnesium Direct Bilirubin AST ALT Alkaline Phosphatase Lactate Dehydrogenase Troponin T C-Reactive Protein Total Protein Albumin Prealbumin Triglycerides Cholesterol LDL Cholesterol Direct HDL Cholesterol Urine pH Urine WBC (Auto) Urine Creatinine Urine Total Protein Fluid Total Protein Vancomycin Trough Rheumatoid Factor Complement C4 Miscellaneous Test Crossmatch 12/02/16 12/02/16 12/02/16 05:31 11:20 17:38 WBC RBC Hgb Hct MCV MCH MCHC RDW Plt Count Lymph % (Auto) [place] % (Auto) Lymph # [place] # Baso # Seg Neutrophils % Seg Neuts % (Manual) Lymphocytes % (Manual) Monocytes % (Manual) Eosinophils % (Manual) Basophils % (Manual) Nucleated RBC % Seg Neutrophils # Seg Neutrophils # Man Lymphocytes # (Manual) Monocytes # (Manual) Eosinophils # (Manual) PT INR Fibrinogen dRVVT Confirm Interp Factor V Activity POC ABG pH POC ABG pCO2 POC ABG pO2 ABG pO2 ABG HCO3 ABG Base Excess ABG Hemoglobin Oxyhemoglobin Sodium Potassium Chloride Carbon Dioxide BUN Creatinine Glucose POC Glucose 136 H 177 H 139 H Lactic Acid Calcium Phosphorus Magnesium Direct Bilirubin AST ALT Alkaline Phosphatase Lactate Dehydrogenase Troponin T C-Reactive Protein Total Protein Albumin Prealbumin Triglycerides Cholesterol LDL Cholesterol Direct HDL Cholesterol Urine pH Urine WBC (Auto) Urine Creatinine Urine Total Protein Fluid Total Protein Vancomycin Trough Rheumatoid Factor Complement C4 Miscellaneous Test Crossmatch 12/02/16 12/03/16 12/03/16 23:43 04:00 04:00 WBC 20.4 H RBC 2.74 L Hgb 7.4 L Hct 23.6 L MCV MCH 27 L MCHC RDW 17.1 H Plt Count Lymph % (Auto) [place] % (Auto) Lymph # [place] # Baso # Seg Neutrophils % Seg Neuts % (Manual) 31.0 L Lymphocytes % (Manual) Monocytes % (Manual) Eosinophils % (Manual) Basophils % (Manual) Nucleated RBC % Seg Neutrophils # Seg Neutrophils # Man Lymphocytes # (Manual) Monocytes # (Manual) Eosinophils # (Manual) PT INR Fibrinogen dRVVT Confirm Interp Factor V Activity POC ABG pH POC ABG pCO2 POC ABG pO2 ABG pO2 ABG HCO3 ABG Base Excess ABG Hemoglobin Oxyhemoglobin Sodium Potassium Chloride Carbon Dioxide BUN 61 H Creatinine 1.6 H Glucose 119 H POC Glucose 158 H Lactic Acid Calcium Phosphorus Magnesium Direct Bilirubin AST ALT Alkaline Phosphatase Lactate Dehydrogenase Troponin T C-Reactive Protein Total Protein Albumin Prealbumin Triglycerides Cholesterol LDL Cholesterol Direct HDL Cholesterol Urine pH Urine WBC (Auto) Urine Creatinine Urine Total Protein Fluid Total Protein Vancomycin Trough Rheumatoid Factor Complement C4 Miscellaneous Test Crossmatch 12/03/16 12/03/16 12/03/16 05:02 12:11 18:16 WBC RBC Hgb Hct MCV MCH MCHC RDW Plt Count Lymph % (Auto) [place] % (Auto) Lymph # [place] # Baso # Seg Neutrophils % Seg Neuts % (Manual) Lymphocytes % (Manual) Monocytes % (Manual) Eosinophils % (Manual) Basophils % (Manual) Nucleated RBC % Seg Neutrophils # Seg Neutrophils # Man Lymphocytes # (Manual) Monocytes # (Manual) Eosinophils # (Manual) PT INR Fibrinogen dRVVT Confirm Interp Factor V Activity POC ABG pH POC ABG pCO2 POC ABG pO2 ABG pO2 ABG HCO3 ABG Base Excess ABG Hemoglobin Oxyhemoglobin Sodium Potassium Chloride Carbon Dioxide BUN Creatinine Glucose POC Glucose 146 H 157 H 124 H Lactic Acid Calcium Phosphorus Magnesium Direct Bilirubin AST ALT Alkaline Phosphatase Lactate Dehydrogenase Troponin T C-Reactive Protein Total Protein Albumin Prealbumin Triglycerides Cholesterol LDL Cholesterol Direct HDL Cholesterol Urine pH Urine WBC (Auto) Urine Creatinine Urine Total Protein Fluid Total Protein Vancomycin Trough Rheumatoid Factor Complement C4 Miscellaneous Test Crossmatch 12/03/16 12/04/16 12/04/16 23:41 04:00 04:45 WBC RBC Hgb Hct MCV MCH MCHC RDW Plt Count Lymph % (Auto) [place] % (Auto) Lymph # [place] # Baso # Seg Neutrophils % Seg Neuts % (Manual) Lymphocytes % (Manual) Monocytes % (Manual) Eosinophils % (Manual) Basophils % (Manual) Nucleated RBC % Seg Neutrophils # Seg Neutrophils # Man Lymphocytes # (Manual) Monocytes # (Manual) Eosinophils # (Manual) PT INR Fibrinogen dRVVT Confirm Interp Factor V Activity POC ABG pH POC ABG pCO2 POC ABG pO2 ABG pO2 ABG HCO3 ABG Base Excess ABG Hemoglobin Oxyhemoglobin Sodium Potassium Chloride Carbon Dioxide BUN 76 H Creatinine 1.6 H Glucose POC Glucose 130 H 136 H Lactic Acid Calcium Phosphorus Magnesium Direct Bilirubin AST ALT Alkaline Phosphatase 155 H Lactate Dehydrogenase Troponin T C-Reactive Protein Total Protein 5.5 L Albumin 1.5 L Prealbumin Triglycerides Cholesterol LDL Cholesterol Direct HDL Cholesterol Urine pH Urine WBC (Auto) Urine Creatinine Urine Total Protein Fluid Total Protein Vancomycin Trough Rheumatoid Factor Complement C4 Miscellaneous Test Crossmatch 12/04/16 12/04/16 12/05/16 12:08 17:23 00:10 WBC RBC Hgb Hct MCV MCH MCHC RDW Plt Count Lymph % (Auto) [place] % (Auto) Lymph # [place] # Baso # Seg Neutrophils % Seg Neuts % (Manual) Lymphocytes % (Manual) Monocytes % (Manual) Eosinophils % (Manual) Basophils % (Manual) Nucleated RBC % Seg Neutrophils # Seg Neutrophils # Man Lymphocytes # (Manual) Monocytes # (Manual) Eosinophils # (Manual) PT INR Fibrinogen dRVVT Confirm Interp Factor V Activity POC ABG pH POC ABG pCO2 POC ABG pO2 ABG pO2 ABG HCO3 ABG Base Excess ABG Hemoglobin Oxyhemoglobin Sodium Potassium Chloride Carbon Dioxide BUN Creatinine Glucose POC Glucose 114 H 129 H 124 H Lactic Acid Calcium Phosphorus Magnesium Direct Bilirubin AST ALT Alkaline Phosphatase Lactate Dehydrogenase Troponin T C-Reactive Protein Total Protein Albumin Prealbumin Triglycerides Cholesterol LDL Cholesterol Direct HDL Cholesterol Urine pH Urine WBC (Auto) Urine Creatinine Urine Total Protein Fluid Total Protein Vancomycin Trough Rheumatoid Factor Complement C4 Miscellaneous Test Crossmatch 12/05/16 12/05/16 12/05/16 05:00 05:00 05:18 WBC RBC Hgb Hct MCV MCH MCHC RDW Plt Count Lymph % (Auto) [place] % (Auto) Lymph # [place] # Baso # Seg Neutrophils % Seg Neuts % (Manual) Lymphocytes % (Manual) Monocytes % (Manual) Eosinophils % (Manual) Basophils % (Manual) Nucleated RBC % Seg Neutrophils # Seg Neutrophils # Man Lymphocytes # (Manual) Monocytes # (Manual) Eosinophils # (Manual) PT INR Fibrinogen dRVVT Confirm Interp Factor V Activity POC ABG pH POC ABG pCO2 POC ABG pO2 ABG pO2 ABG HCO3 ABG Base Excess ABG Hemoglobin Oxyhemoglobin Sodium Potassium Chloride Carbon Dioxide 21 L BUN 85 H Creatinine 1.9 H Glucose 131 H POC Glucose 154 H Lactic Acid Calcium Phosphorus Magnesium Direct Bilirubin AST ALT Alkaline Phosphatase Lactate Dehydrogenase Troponin T C-Reactive Protein 19.30 H Total Protein Albumin Prealbumin Triglycerides Cholesterol LDL Cholesterol Direct HDL Cholesterol Urine pH Urine WBC (Auto) Urine Creatinine Urine Total Protein Fluid Total Protein Vancomycin Trough Rheumatoid Factor Complement C4 Miscellaneous Test Crossmatch 12/05/16 12/05/16 12/05/16 11:43 17:46 23:25 WBC RBC Hgb Hct MCV MCH MCHC RDW Plt Count Lymph % (Auto) [place] % (Auto) Lymph # [place] # Baso # Seg Neutrophils % Seg Neuts % (Manual) Lymphocytes % (Manual) Monocytes % (Manual) Eosinophils % (Manual) Basophils % (Manual) Nucleated RBC % Seg Neutrophils # Seg Neutrophils # Man Lymphocytes # (Manual) Monocytes # (Manual) Eosinophils # (Manual) PT INR Fibrinogen dRVVT Confirm Interp Factor V Activity POC ABG pH POC ABG pCO2 POC ABG pO2 ABG pO2 ABG HCO3 ABG Base Excess ABG Hemoglobin Oxyhemoglobin Sodium Potassium Chloride Carbon Dioxide BUN Creatinine Glucose POC Glucose 117 H 113 H 111 H Lactic Acid Calcium Phosphorus Magnesium Direct Bilirubin AST ALT Alkaline Phosphatase Lactate Dehydrogenase Troponin T C-Reactive Protein Total Protein Albumin Prealbumin Triglycerides Cholesterol LDL Cholesterol Direct HDL Cholesterol Urine pH Urine WBC (Auto) Urine Creatinine Urine Total Protein Fluid Total Protein Vancomycin Trough Rheumatoid Factor Complement C4 Miscellaneous Test Crossmatch 12/05/16 12/06/16 12/06/16 Unknown 04:58 06:00 WBC RBC Hgb Hct MCV MCH MCHC RDW Plt Count Lymph % (Auto) [place] % (Auto) Lymph # [place] # Baso # Seg Neutrophils % Seg Neuts % (Manual) Lymphocytes % (Manual) Monocytes % (Manual) Eosinophils % (Manual) Basophils % (Manual) Nucleated RBC % Seg Neutrophils # Seg Neutrophils # Man Lymphocytes # (Manual) Monocytes # (Manual) Eosinophils # (Manual) PT INR Fibrinogen dRVVT Confirm Interp Factor V Activity POC ABG pH POC ABG pCO2 POC ABG pO2 ABG pO2 75.2 L ABG HCO3 ABG Base Excess -3.4 L ABG Hemoglobin 7.4 L Oxyhemoglobin 94.5 L Sodium Potassium Chloride Carbon Dioxide 20 L BUN 99 H Creatinine 2.1 H Glucose 126 H POC Glucose 145 H Lactic Acid Calcium Phosphorus 4.80 H Magnesium Direct Bilirubin AST ALT Alkaline Phosphatase Lactate Dehydrogenase Troponin T C-Reactive Protein Total Protein Albumin Prealbumin Triglycerides Cholesterol LDL Cholesterol Direct HDL Cholesterol Urine pH Urine WBC (Auto) Urine Creatinine Urine Total Protein Fluid Total Protein Vancomycin Trough Rheumatoid Factor Complement C4 Miscellaneous Test Crossmatch 12/06/16 12/06/16 12/06/16 06:46 11:54 17:55 WBC RBC Hgb 8.3 L Hct 26.4 L MCV MCH MCHC RDW Plt Count Lymph % (Auto) [place] % (Auto) Lymph # [place] # Baso # Seg Neutrophils % Seg Neuts % (Manual) Lymphocytes % (Manual) Monocytes % (Manual) Eosinophils % (Manual) Basophils % (Manual) Nucleated RBC % Seg Neutrophils # Seg Neutrophils # Man Lymphocytes # (Manual) Monocytes # (Manual) Eosinophils # (Manual) PT INR Fibrinogen dRVVT Confirm Interp Factor V Activity POC ABG pH POC ABG pCO2 POC ABG pO2 ABG pO2 ABG HCO3 ABG Base Excess ABG Hemoglobin Oxyhemoglobin Sodium Potassium Chloride Carbon Dioxide BUN Creatinine Glucose POC Glucose 126 H 157 H Lactic Acid Calcium Phosphorus Magnesium Direct Bilirubin AST ALT Alkaline Phosphatase Lactate Dehydrogenase Troponin T C-Reactive Protein Total Protein Albumin Prealbumin Triglycerides Cholesterol LDL Cholesterol Direct HDL Cholesterol Urine pH Urine WBC (Auto) Urine Creatinine Urine Total Protein Fluid Total Protein Vancomycin Trough Rheumatoid Factor Complement C4 Miscellaneous Test Crossmatch 12/06/16 12/07/16 12/07/16 23:59 05:34 06:30 WBC RBC Hgb Hct MCV MCH MCHC RDW Plt Count Lymph % (Auto) [place] % (Auto) Lymph # [place] # Baso # Seg Neutrophils % Seg Neuts % (Manual) Lymphocytes % (Manual) Monocytes % (Manual) Eosinophils % (Manual) Basophils % (Manual) Nucleated RBC % Seg Neutrophils # Seg Neutrophils # Man Lymphocytes # (Manual) Monocytes # (Manual) Eosinophils # (Manual) PT INR Fibrinogen dRVVT Confirm Interp Factor V Activity POC ABG pH POC ABG pCO2 POC ABG pO2 ABG pO2 ABG HCO3 ABG Base Excess ABG Hemoglobin Oxyhemoglobin Sodium Potassium Chloride Carbon Dioxide BUN 67 H Creatinine 1.4 H Glucose 126 H POC Glucose 129 H 129 H Lactic Acid Calcium Phosphorus Magnesium Direct Bilirubin AST ALT Alkaline Phosphatase Lactate Dehydrogenase Troponin T C-Reactive Protein Total Protein Albumin Prealbumin Triglycerides Cholesterol LDL Cholesterol Direct HDL Cholesterol Urine pH Urine WBC (Auto) Urine Creatinine Urine Total Protein Fluid Total Protein Vancomycin Trough Rheumatoid Factor Complement C4 Miscellaneous Test Crossmatch 12/07/16 12/07/16 12/07/16 06:30 08:00 09:45 WBC 18.8 H RBC 2.52 L Hgb 6.9 L 6.8 L Hct 21.2 L 21.1 L MCV MCH 27 L MCHC RDW 18.0 H Plt Count Lymph % (Auto) [place] % (Auto) 9.9 H Lymph # [place] # 1.9 H Baso # Seg Neutrophils % 71.8 H Seg Neuts % (Manual) Lymphocytes % (Manual) Monocytes % (Manual) Eosinophils % (Manual) Basophils % (Manual) Nucleated RBC % Seg Neutrophils # 13.5 H Seg Neutrophils # Man Lymphocytes # (Manual) Monocytes # (Manual) Eosinophils # (Manual) PT INR Fibrinogen dRVVT Confirm Interp Factor V Activity POC ABG pH POC ABG pCO2 POC ABG pO2 ABG pO2 ABG HCO3 ABG Base Excess ABG Hemoglobin Oxyhemoglobin Sodium Potassium Chloride Carbon Dioxide BUN Creatinine Glucose POC Glucose Lactic Acid Calcium Phosphorus Magnesium Direct Bilirubin AST ALT Alkaline Phosphatase Lactate Dehydrogenase Troponin T C-Reactive Protein Total Protein Albumin Prealbumin Triglycerides Cholesterol LDL Cholesterol Direct HDL Cholesterol Urine pH Urine WBC (Auto) Urine Creatinine Urine Total Protein Fluid Total Protein Vancomycin Trough Rheumatoid Factor Complement C4 Miscellaneous Test Crossmatch See Detail 12/07/16 12/07/16 12/07/16 11:44 18:19 23:59 WBC RBC Hgb Hct MCV MCH MCHC RDW Plt Count Lymph % (Auto) [place] % (Auto) Lymph # [place] # Baso # Seg Neutrophils % Seg Neuts % (Manual) Lymphocytes % (Manual) Monocytes % (Manual) Eosinophils % (Manual) Basophils % (Manual) Nucleated RBC % Seg Neutrophils # Seg Neutrophils # Man Lymphocytes # (Manual) Monocytes # (Manual) Eosinophils # (Manual) PT INR Fibrinogen dRVVT Confirm Interp Factor V Activity POC ABG pH POC ABG pCO2 POC ABG pO2 ABG pO2 ABG HCO3 ABG Base Excess ABG Hemoglobin Oxyhemoglobin Sodium Potassium Chloride Carbon Dioxide BUN Creatinine Glucose POC Glucose 137 H 138 H 133 H Lactic Acid Calcium Phosphorus Magnesium Direct Bilirubin AST ALT Alkaline Phosphatase Lactate Dehydrogenase Troponin T C-Reactive Protein Total Protein Albumin Prealbumin Triglycerides Cholesterol LDL Cholesterol Direct HDL Cholesterol Urine pH Urine WBC (Auto) Urine Creatinine Urine Total Protein Fluid Total Protein Vancomycin Trough Rheumatoid Factor Complement C4 Miscellaneous Test Crossmatch 12/08/16 12/08/16 12/08/16 05:25 05:30 05:30 WBC 23.8 H RBC 2.88 L Hgb 8.1 L Hct 24.3 L MCV MCH MCHC RDW 16.7 H Plt Count Lymph % (Auto) [place] % (Auto) Lymph # [place] # Baso # Seg Neutrophils % Seg Neuts % (Manual) 76.0 H Lymphocytes % (Manual) 9.0 L Monocytes % (Manual) 9.0 H Eosinophils % (Manual) Basophils % (Manual) Nucleated RBC % Seg Neutrophils # Seg Neutrophils # Man 18.1 H Lymphocytes # (Manual) Monocytes # (Manual) 2.1 H Eosinophils # (Manual) PT INR Fibrinogen dRVVT Confirm Interp Factor V Activity POC ABG pH POC ABG pCO2 POC ABG pO2 ABG pO2 ABG HCO3 ABG Base Excess ABG Hemoglobin Oxyhemoglobin Sodium Potassium Chloride Carbon Dioxide 21 L BUN 76 H Creatinine 1.6 H Glucose 133 H POC Glucose 177 H Lactic Acid Calcium Phosphorus Magnesium Direct Bilirubin AST ALT Alkaline Phosphatase Lactate Dehydrogenase Troponin T C-Reactive Protein Total Protein Albumin Prealbumin Triglycerides Cholesterol LDL Cholesterol Direct HDL Cholesterol Urine pH Urine WBC (Auto) Urine Creatinine Urine Total Protein Fluid Total Protein Vancomycin Trough Rheumatoid Factor Complement C4 Miscellaneous Test Crossmatch 12/08/16 12/08/16 12/09/16 11:45 18:00 00:00 WBC RBC Hgb Hct MCV MCH MCHC RDW Plt Count Lymph % (Auto) [place] % (Auto) Lymph # [place] # Baso # Seg Neutrophils % Seg Neuts % (Manual) Lymphocytes % (Manual) Monocytes % (Manual) Eosinophils % (Manual) Basophils % (Manual) Nucleated RBC % Seg Neutrophils # Seg Neutrophils # Man Lymphocytes # (Manual) Monocytes # (Manual) Eosinophils # (Manual) PT INR Fibrinogen dRVVT Confirm Interp Factor V Activity POC ABG pH POC ABG pCO2 POC ABG pO2 ABG pO2 ABG HCO3 ABG Base Excess ABG Hemoglobin Oxyhemoglobin Sodium Potassium Chloride Carbon Dioxide BUN Creatinine Glucose POC Glucose 163 H 123 H 137 H Lactic Acid Calcium Phosphorus Magnesium Direct Bilirubin AST ALT Alkaline Phosphatase Lactate Dehydrogenase Troponin T C-Reactive Protein Total Protein Albumin Prealbumin Triglycerides Cholesterol LDL Cholesterol Direct HDL Cholesterol Urine pH Urine WBC (Auto) Urine Creatinine Urine Total Protein Fluid Total Protein Vancomycin Trough Rheumatoid Factor Complement C4 Miscellaneous Test Crossmatch 12/09/16 12/09/16 12/09/16 05:34 06:00 06:00 WBC 15.5 H RBC 2.87 L Hgb 8.0 L Hct 24.2 L MCV MCH MCHC RDW 17.2 H Plt Count Lymph % (Auto) [place] % (Auto) 11.6 H Lymph # [place] # 1.8 H Baso # Seg Neutrophils % 70.8 H Seg Neuts % (Manual) Lymphocytes % (Manual) Monocytes % (Manual) Eosinophils % (Manual) Basophils % (Manual) Nucleated RBC % Seg Neutrophils # 11.0 H Seg Neutrophils # Man Lymphocytes # (Manual) Monocytes # (Manual) Eosinophils # (Manual) PT INR Fibrinogen dRVVT Confirm Interp Factor V Activity POC ABG pH POC ABG pCO2 POC ABG pO2 ABG pO2 ABG HCO3 ABG Base Excess ABG Hemoglobin Oxyhemoglobin Sodium Potassium Chloride Carbon Dioxide BUN 51 H Creatinine Glucose 117 H POC Glucose 136 H Lactic Acid Calcium Phosphorus Magnesium Direct Bilirubin AST ALT Alkaline Phosphatase Lactate Dehydrogenase Troponin T C-Reactive Protein Total Protein Albumin Prealbumin Triglycerides Cholesterol LDL Cholesterol Direct HDL Cholesterol Urine pH Urine WBC (Auto) Urine Creatinine Urine Total Protein Fluid Total Protein Vancomycin Trough Rheumatoid Factor Complement C4 Miscellaneous Test Crossmatch 12/09/16 12/09/16 12/09/16 12:29 17:52 23:10 WBC RBC Hgb Hct MCV MCH MCHC RDW Plt Count Lymph % (Auto) [place] % (Auto) Lymph # [place] # Baso # Seg Neutrophils % Seg Neuts % (Manual) Lymphocytes % (Manual) Monocytes % (Manual) Eosinophils % (Manual) Basophils % (Manual) Nucleated RBC % Seg Neutrophils # Seg Neutrophils # Man Lymphocytes # (Manual) Monocytes # (Manual) Eosinophils # (Manual) PT INR Fibrinogen dRVVT Confirm Interp Factor V Activity POC ABG pH POC ABG pCO2 POC ABG pO2 ABG pO2 ABG HCO3 ABG Base Excess ABG Hemoglobin Oxyhemoglobin Sodium Potassium Chloride Carbon Dioxide BUN Creatinine Glucose POC Glucose 139 H 140 H 129 H Lactic Acid Calcium Phosphorus Magnesium Direct Bilirubin AST ALT Alkaline Phosphatase Lactate Dehydrogenase Troponin T C-Reactive Protein Total Protein Albumin Prealbumin Triglycerides Cholesterol LDL Cholesterol Direct HDL Cholesterol Urine pH Urine WBC (Auto) Urine Creatinine Urine Total Protein Fluid Total Protein Vancomycin Trough Rheumatoid Factor Complement C4 Miscellaneous Test Crossmatch 12/10/16 12/10/16 12/10/16 05:00 05:00 06:54 WBC 15.7 H RBC 2.87 L Hgb 8.2 L Hct 24.4 L MCV MCH MCHC RDW 17.2 H Plt Count Lymph % (Auto) [place] % (Auto) 8.3 H Lymph # [place] # 1.3 H Baso # Seg Neutrophils % 72.8 H Seg Neuts % (Manual) Lymphocytes % (Manual) Monocytes % (Manual) Eosinophils % (Manual) Basophils % (Manual) Nucleated RBC % Seg Neutrophils # 11.4 H Seg Neutrophils # Man Lymphocytes # (Manual) Monocytes # (Manual) Eosinophils # (Manual) PT INR Fibrinogen dRVVT Confirm Interp Factor V Activity POC ABG pH POC ABG pCO2 POC ABG pO2 ABG pO2 ABG HCO3 ABG Base Excess ABG Hemoglobin Oxyhemoglobin Sodium Potassium Chloride Carbon Dioxide BUN 64 H Creatinine 1.4 H Glucose 134 H POC Glucose 154 H Lactic Acid Calcium Phosphorus Magnesium Direct Bilirubin AST ALT Alkaline Phosphatase Lactate Dehydrogenase Troponin T C-Reactive Protein Total Protein Albumin Prealbumin Triglycerides Cholesterol LDL Cholesterol Direct HDL Cholesterol Urine pH Urine WBC (Auto) Urine Creatinine Urine Total Protein Fluid Total Protein Vancomycin Trough Rheumatoid Factor Complement C4 Miscellaneous Test Crossmatch 12/10/16 12/10/16 12/10/16 11:58 17:29 23:52 WBC RBC Hgb Hct MCV MCH MCHC RDW Plt Count Lymph % (Auto) [place] % (Auto) Lymph # [place] # Baso # Seg Neutrophils % Seg Neuts % (Manual) Lymphocytes % (Manual) Monocytes % (Manual) Eosinophils % (Manual) Basophils % (Manual) Nucleated RBC % Seg Neutrophils # Seg Neutrophils # Man Lymphocytes # (Manual) Monocytes # (Manual) Eosinophils # (Manual) PT INR Fibrinogen dRVVT Confirm Interp Factor V Activity POC ABG pH POC ABG pCO2 POC ABG pO2 ABG pO2 ABG HCO3 ABG Base Excess ABG Hemoglobin Oxyhemoglobin Sodium Potassium Chloride Carbon Dioxide BUN Creatinine Glucose POC Glucose 144 H 163 H 125 H Lactic Acid Calcium Phosphorus Magnesium Direct Bilirubin AST ALT Alkaline Phosphatase Lactate Dehydrogenase Troponin T C-Reactive Protein Total Protein Albumin Prealbumin Triglycerides Cholesterol LDL Cholesterol Direct HDL Cholesterol Urine pH Urine WBC (Auto) Urine Creatinine Urine Total Protein Fluid Total Protein Vancomycin Trough Rheumatoid Factor Complement C4 Miscellaneous Test Crossmatch 12/11/16 12/11/16 12/11/16 05:38 06:30 06:30 WBC 14.4 H RBC 2.76 L Hgb 7.7 L Hct 23.4 L MCV MCH MCHC RDW 17.2 H Plt Count Lymph % (Auto) [place] % (Auto) 8.8 H Lymph # [place] # 1.3 H Baso # Seg Neutrophils % 72.5 H Seg Neuts % (Manual) Lymphocytes % (Manual) Monocytes % (Manual) Eosinophils % (Manual) Basophils % (Manual) Nucleated RBC % Seg Neutrophils # 10.5 H Seg Neutrophils # Man Lymphocytes # (Manual) Monocytes # (Manual) Eosinophils # (Manual) PT INR Fibrinogen dRVVT Confirm Interp Factor V Activity POC ABG pH POC ABG pCO2 POC ABG pO2 ABG pO2 ABG HCO3 ABG Base Excess ABG Hemoglobin Oxyhemoglobin Sodium Potassium Chloride Carbon Dioxide BUN 43 H Creatinine Glucose 124 H POC Glucose 141 H Lactic Acid Calcium 8.3 L Phosphorus Magnesium 1.60 L Direct Bilirubin AST ALT Alkaline Phosphatase Lactate Dehydrogenase Troponin T C-Reactive Protein Total Protein Albumin Prealbumin Triglycerides Cholesterol LDL Cholesterol Direct HDL Cholesterol Urine pH Urine WBC (Auto) Urine Creatinine Urine Total Protein Fluid Total Protein Vancomycin Trough Rheumatoid Factor Complement C4 Miscellaneous Test Crossmatch 12/11/16 12/11/16 12/11/16 11:15 17:59 23:48 WBC RBC Hgb Hct MCV MCH MCHC RDW Plt Count Lymph % (Auto) [place] % (Auto) Lymph # [place] # Baso # Seg Neutrophils % Seg Neuts % (Manual) Lymphocytes % (Manual) Monocytes % (Manual) Eosinophils % (Manual) Basophils % (Manual) Nucleated RBC % Seg Neutrophils # Seg Neutrophils # Man Lymphocytes # (Manual) Monocytes # (Manual) Eosinophils # (Manual) PT INR Fibrinogen dRVVT Confirm Interp Factor V Activity POC ABG pH POC ABG pCO2 POC ABG pO2 ABG pO2 ABG HCO3 ABG Base Excess ABG Hemoglobin Oxyhemoglobin Sodium Potassium Chloride Carbon Dioxide BUN Creatinine Glucose POC Glucose 188 H 106 H 119 H Lactic Acid Calcium Phosphorus Magnesium Direct Bilirubin AST ALT Alkaline Phosphatase Lactate Dehydrogenase Troponin T C-Reactive Protein Total Protein Albumin Prealbumin Triglycerides Cholesterol LDL Cholesterol Direct HDL Cholesterol Urine pH Urine WBC (Auto) Urine Creatinine Urine Total Protein Fluid Total Protein Vancomycin Trough Rheumatoid Factor Complement C4 Miscellaneous Test Crossmatch 12/12/16 12/12/16 12/12/16 05:00 06:01 12:20 WBC 16.7 H RBC 2.87 L Hgb 8.0 L Hct 24.2 L MCV MCH MCHC RDW 17.6 H Plt Count Lymph % (Auto) [place] % (Auto) Lymph # [place] # 1.2 H Baso # Seg Neutrophils % 75.3 H Seg Neuts % (Manual) Lymphocytes % (Manual) Monocytes % (Manual) Eosinophils % (Manual) Basophils % (Manual) Nucleated RBC % Seg Neutrophils # 12.6 H Seg Neutrophils # Man Lymphocytes # (Manual) Monocytes # (Manual) Eosinophils # (Manual) PT INR Fibrinogen dRVVT Confirm Interp Factor V Activity POC ABG pH POC ABG pCO2 POC ABG pO2 ABG pO2 ABG HCO3 ABG Base Excess ABG Hemoglobin Oxyhemoglobin Sodium Potassium Chloride Carbon Dioxide BUN Creatinine Glucose POC Glucose 134 H 149 H Lactic Acid Calcium Phosphorus Magnesium Direct Bilirubin AST ALT Alkaline Phosphatase Lactate Dehydrogenase Troponin T C-Reactive Protein Total Protein Albumin Prealbumin Triglycerides Cholesterol LDL Cholesterol Direct HDL Cholesterol Urine pH Urine WBC (Auto) Urine Creatinine Urine Total Protein Fluid Total Protein Vancomycin Trough Rheumatoid Factor Complement C4 Miscellaneous Test Crossmatch 12/12/16 12/12/16 12/12/16 17:38 23:01 Unknown WBC RBC Hgb Hct MCV MCH MCHC RDW Plt Count Lymph % (Auto) [place] % (Auto) Lymph # [place] # Baso # Seg Neutrophils % Seg Neuts % (Manual) Lymphocytes % (Manual) Monocytes % (Manual) Eosinophils % (Manual) Basophils % (Manual) Nucleated RBC % Seg Neutrophils # Seg Neutrophils # Man Lymphocytes # (Manual) Monocytes # (Manual) Eosinophils # (Manual) PT INR Fibrinogen dRVVT Confirm Interp Factor V Activity POC ABG pH POC ABG pCO2 POC ABG pO2 ABG pO2 ABG HCO3 ABG Base Excess ABG Hemoglobin Oxyhemoglobin Sodium Potassium Chloride Carbon Dioxide BUN 60 H Creatinine 1.3 H Glucose 126 H POC Glucose 127 H 144 H Lactic Acid Calcium Phosphorus Magnesium Direct Bilirubin AST ALT Alkaline Phosphatase Lactate Dehydrogenase Troponin T C-Reactive Protein Total Protein Albumin Prealbumin Triglycerides Cholesterol LDL Cholesterol Direct HDL Cholesterol Urine pH Urine WBC (Auto) Urine Creatinine Urine Total Protein Fluid Total Protein Vancomycin Trough Rheumatoid Factor Complement C4 Miscellaneous Test Crossmatch 12/13/16 12/13/16 12/13/16 04:00 04:00 05:19 WBC 18.7 H RBC 2.89 L Hgb 8.3 L Hct 24.6 L MCV MCH MCHC RDW 17.5 H Plt Count Lymph % (Auto) [place] % (Auto) Lymph # [place] # 1.3 H Baso # Seg Neutrophils % 71.5 H Seg Neuts % (Manual) Lymphocytes % (Manual) Monocytes % (Manual) Eosinophils % (Manual) Basophils % (Manual) Nucleated RBC % Seg Neutrophils # 13.4 H Seg Neutrophils # Man Lymphocytes # (Manual) Monocytes # (Manual) Eosinophils # (Manual) PT INR Fibrinogen dRVVT Confirm Interp Factor V Activity POC ABG pH POC ABG pCO2 POC ABG pO2 ABG pO2 ABG HCO3 ABG Base Excess ABG Hemoglobin Oxyhemoglobin Sodium Potassium Chloride Carbon Dioxide BUN 73 H Creatinine 1.5 H Glucose 141 H POC Glucose 171 H Lactic Acid Calcium Phosphorus Magnesium Direct Bilirubin AST ALT Alkaline Phosphatase Lactate Dehydrogenase Troponin T C-Reactive Protein Total Protein Albumin Prealbumin Triglycerides Cholesterol LDL Cholesterol Direct HDL Cholesterol Urine pH Urine WBC (Auto) Urine Creatinine Urine Total Protein Fluid Total Protein Vancomycin Trough Rheumatoid Factor Complement C4 Miscellaneous Test Crossmatch 12/13/16 12/13/16 12/14/16 12:28 16:48 00:01 WBC RBC Hgb Hct MCV MCH MCHC RDW Plt Count Lymph % (Auto) [place] % (Auto) Lymph # [place] # Baso # Seg Neutrophils % Seg Neuts % (Manual) Lymphocytes % (Manual) Monocytes % (Manual) Eosinophils % (Manual) Basophils % (Manual) Nucleated RBC % Seg Neutrophils # Seg Neutrophils # Man Lymphocytes # (Manual) Monocytes # (Manual) Eosinophils # (Manual) PT INR Fibrinogen dRVVT Confirm Interp Factor V Activity POC ABG pH POC ABG pCO2 POC ABG pO2 ABG pO2 ABG HCO3 ABG Base Excess ABG Hemoglobin Oxyhemoglobin Sodium Potassium Chloride Carbon Dioxide BUN Creatinine Glucose POC Glucose 206 H 173 H 139 H Lactic Acid Calcium Phosphorus Magnesium Direct Bilirubin AST ALT Alkaline Phosphatase Lactate Dehydrogenase Troponin T C-Reactive Protein Total Protein Albumin Prealbumin Triglycerides Cholesterol LDL Cholesterol Direct HDL Cholesterol Urine pH Urine WBC (Auto) Urine Creatinine Urine Total Protein Fluid Total Protein Vancomycin Trough Rheumatoid Factor Complement C4 Miscellaneous Test Crossmatch 12/14/16 12/14/16 12/14/16 05:16 06:10 11:17 WBC RBC Hgb Hct MCV MCH MCHC RDW Plt Count Lymph % (Auto) [place] % (Auto) Lymph # [place] # Baso # Seg Neutrophils % Seg Neuts % (Manual) Lymphocytes % (Manual) Monocytes % (Manual) Eosinophils % (Manual) Basophils % (Manual) Nucleated RBC % Seg Neutrophils # Seg Neutrophils # Man Lymphocytes # (Manual) Monocytes # (Manual) Eosinophils # (Manual) PT INR Fibrinogen dRVVT Confirm Interp Factor V Activity POC ABG pH POC ABG pCO2 POC ABG pO2 ABG pO2 ABG HCO3 ABG Base Excess ABG Hemoglobin Oxyhemoglobin Sodium Potassium Chloride Carbon Dioxide BUN 57 H Creatinine 1.4 H Glucose 135 H POC Glucose 158 H 137 H Lactic Acid Calcium Phosphorus Magnesium Direct Bilirubin AST ALT Alkaline Phosphatase Lactate Dehydrogenase Troponin T C-Reactive Protein Total Protein Albumin Prealbumin Triglycerides Cholesterol LDL Cholesterol Direct HDL Cholesterol Urine pH Urine WBC (Auto) Urine Creatinine Urine Total Protein Fluid Total Protein Vancomycin Trough Rheumatoid Factor Complement C4 Miscellaneous Test Crossmatch 12/14/16 12/14/16 12/15/16 17:52 23:27 04:00 WBC RBC Hgb Hct MCV MCH MCHC RDW Plt Count Lymph % (Auto) [place] % (Auto) Lymph # [place] # Baso # Seg Neutrophils % Seg Neuts % (Manual) Lymphocytes % (Manual) Monocytes % (Manual) Eosinophils % (Manual) Basophils % (Manual) Nucleated RBC % Seg Neutrophils # Seg Neutrophils # Man Lymphocytes # (Manual) Monocytes # (Manual) Eosinophils # (Manual) PT INR Fibrinogen dRVVT Confirm Interp Factor V Activity POC ABG pH POC ABG pCO2 POC ABG pO2 ABG pO2 ABG HCO3 ABG Base Excess ABG Hemoglobin Oxyhemoglobin Sodium Potassium Chloride 97.9 L Carbon Dioxide BUN 75 H Creatinine 1.6 H Glucose 122 H POC Glucose 149 H 163 H Lactic Acid Calcium Phosphorus 5.20 H Magnesium Direct Bilirubin AST ALT Alkaline Phosphatase Lactate Dehydrogenase Troponin T C-Reactive Protein Total Protein Albumin Prealbumin Triglycerides Cholesterol LDL Cholesterol Direct HDL Cholesterol Urine pH Urine WBC (Auto) Urine Creatinine Urine Total Protein Fluid Total Protein Vancomycin Trough Rheumatoid Factor Complement C4 Miscellaneous Test Crossmatch 12/15/16 12/15/16 12/15/16 05:50 11:24 17:01 WBC RBC Hgb Hct MCV MCH MCHC RDW Plt Count Lymph % (Auto) [place] % (Auto) Lymph # [place] # Baso # Seg Neutrophils % Seg Neuts % (Manual) Lymphocytes % (Manual) Monocytes % (Manual) Eosinophils % (Manual) Basophils % (Manual) Nucleated RBC % Seg Neutrophils # Seg Neutrophils # Man Lymphocytes # (Manual) Monocytes # (Manual) Eosinophils # (Manual) PT INR Fibrinogen dRVVT Confirm Interp Factor V Activity POC ABG pH POC ABG pCO2 POC ABG pO2 ABG pO2 ABG HCO3 ABG Base Excess ABG Hemoglobin Oxyhemoglobin Sodium Potassium Chloride Carbon Dioxide BUN Creatinine Glucose POC Glucose 150 H 146 H 167 H Lactic Acid Calcium Phosphorus Magnesium Direct Bilirubin AST ALT Alkaline Phosphatase Lactate Dehydrogenase Troponin T C-Reactive Protein Total Protein Albumin Prealbumin Triglycerides Cholesterol LDL Cholesterol Direct HDL Cholesterol Urine pH Urine WBC (Auto) Urine Creatinine Urine Total Protein Fluid Total Protein Vancomycin Trough Rheumatoid Factor Complement C4 Miscellaneous Test Crossmatch 12/15/16 12/16/16 12/16/16 23:34 05:25 11:24 WBC RBC Hgb Hct MCV MCH MCHC RDW Plt Count Lymph % (Auto) [place] % (Auto) Lymph # [place] # Baso # Seg Neutrophils % Seg Neuts % (Manual) Lymphocytes % (Manual) Monocytes % (Manual) Eosinophils % (Manual) Basophils % (Manual) Nucleated RBC % Seg Neutrophils # Seg Neutrophils # Man Lymphocytes # (Manual) Monocytes # (Manual) Eosinophils # (Manual) PT INR Fibrinogen dRVVT Confirm Interp Factor V Activity POC ABG pH POC ABG pCO2 POC ABG pO2 ABG pO2 ABG HCO3 ABG Base Excess ABG Hemoglobin Oxyhemoglobin Sodium Potassium Chloride Carbon Dioxide BUN Creatinine Glucose POC Glucose 127 H 139 H 165 H Lactic Acid Calcium Phosphorus Magnesium Direct Bilirubin AST ALT Alkaline Phosphatase Lactate Dehydrogenase Troponin T C-Reactive Protein Total Protein Albumin Prealbumin Triglycerides Cholesterol LDL Cholesterol Direct HDL Cholesterol Urine pH Urine WBC (Auto) Urine Creatinine Urine Total Protein Fluid Total Protein Vancomycin Trough Rheumatoid Factor Complement C4 Miscellaneous Test Crossmatch 12/16/16 12/16/16 12/16/16 15:30 16:25 17:31 WBC 17.8 H RBC 2.38 L Hgb 6.4 L Hct 20.3 L MCV MCH 27 L MCHC RDW 17.4 H Plt Count Lymph % (Auto) [place] % (Auto) Lymph # [place] # Baso # Seg Neutrophils % Seg Neuts % (Manual) Lymphocytes % (Manual) Monocytes % (Manual) 10.0 H Eosinophils % (Manual) Basophils % (Manual) Nucleated RBC % Seg Neutrophils # Seg Neutrophils # Man 8.5 H Lymphocytes # (Manual) Monocytes # (Manual) 1.8 H Eosinophils # (Manual) PT INR Fibrinogen dRVVT Confirm Interp Factor V Activity POC ABG pH POC ABG pCO2 POC ABG pO2 ABG pO2 ABG HCO3 ABG Base Excess ABG Hemoglobin Oxyhemoglobin Sodium Potassium Chloride Carbon Dioxide BUN Creatinine Glucose POC Glucose 176 H Lactic Acid Calcium Phosphorus Magnesium Direct Bilirubin AST ALT Alkaline Phosphatase Lactate Dehydrogenase Troponin T C-Reactive Protein Total Protein Albumin Prealbumin Triglycerides Cholesterol LDL Cholesterol Direct HDL Cholesterol Urine pH Urine WBC (Auto) Urine Creatinine Urine Total Protein Fluid Total Protein Vancomycin Trough Rheumatoid Factor Complement C4 Miscellaneous Test Crossmatch See Detail 12/17/16 12/17/16 12/17/16 00:14 04:00 05:00 WBC 20.0 H RBC 2.99 L Hgb 8.5 L Hct 25.7 L MCV MCH MCHC RDW 17.2 H Plt Count Lymph % (Auto) [place] % (Auto) Lymph # [place] # Baso # Seg Neutrophils % Seg Neuts % (Manual) Lymphocytes % (Manual) Monocytes % (Manual) Eosinophils % (Manual) Basophils % (Manual) Nucleated RBC % Seg Neutrophils # Seg Neutrophils # Man Lymphocytes # (Manual) Monocytes # (Manual) Eosinophils # (Manual) PT INR Fibrinogen dRVVT Confirm Interp Factor V Activity POC ABG pH POC ABG pCO2 POC ABG pO2 ABG pO2 ABG HCO3 ABG Base Excess ABG Hemoglobin Oxyhemoglobin Sodium Potassium Chloride 97.7 L Carbon Dioxide BUN 73 H Creatinine 1.7 H Glucose 136 H POC Glucose 148 H Lactic Acid Calcium Phosphorus 2.20 L Magnesium 2.70 H Direct Bilirubin AST ALT Alkaline Phosphatase Lactate Dehydrogenase Troponin T C-Reactive Protein Total Protein Albumin Prealbumin Triglycerides Cholesterol LDL Cholesterol Direct HDL Cholesterol Urine pH Urine WBC (Auto) Urine Creatinine Urine Total Protein Fluid Total Protein Vancomycin Trough Rheumatoid Factor Complement C4 Miscellaneous Test Crossmatch 12/17/16 05:39 WBC RBC Hgb Hct MCV MCH MCHC RDW Plt Count Lymph % (Auto) [place] % (Auto) Lymph # [place] # Baso # Seg Neutrophils % Seg Neuts % (Manual) Lymphocytes % (Manual) Monocytes % (Manual) Eosinophils % (Manual) Basophils % (Manual) Nucleated RBC % Seg Neutrophils # Seg Neutrophils # Man Lymphocytes # (Manual) Monocytes # (Manual) Eosinophils # (Manual) PT INR Fibrinogen dRVVT Confirm Interp Factor V Activity POC ABG pH POC ABG pCO2 POC ABG pO2 ABG pO2 ABG HCO3 ABG Base Excess ABG Hemoglobin Oxyhemoglobin Sodium Potassium Chloride Carbon Dioxide BUN Creatinine Glucose POC Glucose 162 H Lactic Acid Calcium Phosphorus Magnesium Direct Bilirubin AST ALT Alkaline Phosphatase Lactate Dehydrogenase Troponin T C-Reactive Protein Total Protein Albumin Prealbumin Triglycerides Cholesterol LDL Cholesterol Direct HDL Cholesterol Urine pH Urine WBC (Auto) Urine Creatinine Urine Total Protein Fluid Total Protein Vancomycin Trough Rheumatoid Factor Complement C4 Miscellaneous Test Crossmatch Allied health notes reviewed: RT
--- NOTE | 2016-12-17 11:44 | Progress Note ---
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 * Her tachycardia seems to be better . * Tolerating TPN well at this time. Shall monitor her electrolytes * monitor for renal recovery * Rate control per cardiology * Dose medications for renal function * Avoid potential nephrotoxins Subjective Date of service: 12/17/16 Principal diagnosis: Acute resp failure on MVS; S/P Acute CVA; Acute Encephalopathy; JUANITA Interval history: Patient remains in the ICU. Currently on 28% FiO2. Resting comfortably. Objective - Vital Signs Vital signs: Vital Signs - 12hr 12/16/16 12/16/16 12/17/16 23:45 23:57 00:00 Temperature Pulse Rate 125 H 127 H Pulse Rate [ Anterior Bilateral Throughout] Respiratory 25 H 22 Rate Respiratory Rate [Anterior Bilateral Throughout] Blood Pressure 101/66 106/61 O2 Sat by Pulse 92 96 Oximetry O2 Sat by Pulse 96 Oximetry [ Assessment] 12/17/16 12/17/16 12/17/16 00:15 00:30 00:45 Temperature Pulse Rate 113 H 137 H 126 H Pulse Rate [ Anterior Bilateral Throughout] Respiratory 21 24 26 H Rate Respiratory Rate [Anterior Bilateral Throughout] Blood Pressure 106/61 108/72 108/72 O2 Sat by Pulse 97 98 96 Oximetry O2 Sat by Pulse Oximetry [ Assessment] 12/17/16 12/17/16 12/17/16 01:00 01:15 01:31 Temperature Pulse Rate 129 H 130 H 138 H Pulse Rate [ Anterior Bilateral Throughout] Respiratory 25 H 22 27 H Rate Respiratory Rate [Anterior Bilateral Throughout] Blood Pressure 103/61 103/61 111/69 O2 Sat by Pulse 96 97 97 Oximetry O2 Sat by Pulse Oximetry [ Assessment] 12/17/16 12/17/16 12/17/16 01:45 02:00 02:15 Temperature Pulse Rate 137 H 131 H 138 H Pulse Rate [ Anterior Bilateral Throughout] Respiratory 18 30 H 24 Rate Respiratory Rate [Anterior Bilateral Throughout] Blood Pressure 111/69 113/67 113/67 O2 Sat by Pulse 97 93 96 Oximetry O2 Sat by Pulse Oximetry [ Assessment] 12/17/16 12/17/16 12/17/16 02:30 02:45 03:00 Temperature Pulse Rate 127 H 138 H 135 H Pulse Rate [ Anterior Bilateral Throughout] Respiratory 22 26 H 22 Rate Respiratory Rate [Anterior Bilateral Throughout] Blood Pressure 121/76 121/76 113/77 O2 Sat by Pulse 96 95 96 Oximetry O2 Sat by Pulse Oximetry [ Assessment] 12/17/16 12/17/16 12/17/16 03:15 03:28 03:31 Temperature Pulse Rate 130 H 138 H 139 H Pulse Rate [ Anterior Bilateral Throughout] Respiratory 21 29 H Rate Respiratory Rate [Anterior Bilateral Throughout] Blood Pressure 113/77 113/77 146/94 O2 Sat by Pulse 97 95 95 Oximetry O2 Sat by Pulse Oximetry [ Assessment] 12/17/16 12/17/16 12/17/16 03:41 03:45 04:00 Temperature 97.2 F L Pulse Rate 137 H 125 H Pulse Rate [ Anterior Bilateral Throughout] Respiratory 17 27 H Rate Respiratory Rate [Anterior Bilateral Throughout] Blood Pressure 146/94 112/59 O2 Sat by Pulse 94 94 Oximetry O2 Sat by Pulse Oximetry [ Assessment] 12/17/16 12/17/16 12/17/16 04:15 04:30 04:45 Temperature Pulse Rate 138 H 141 H 143 H Pulse Rate [ Anterior Bilateral Throughout] Respiratory 24 25 H 26 H Rate Respiratory Rate [Anterior Bilateral Throughout] Blood Pressure 112/59 123/69 123/69 O2 Sat by Pulse 95 95 94 Oximetry O2 Sat by Pulse Oximetry [ Assessment] 12/17/16 12/17/16 12/17/16 05:00 05:15 05:31 Temperature Pulse Rate 144 H 139 H Pulse Rate [ Anterior Bilateral Throughout] Respiratory 29 H 31 H Rate Respiratory Rate [Anterior Bilateral Throughout] Blood Pressure 120/76 120/76 130/65 O2 Sat by Pulse 94 92 95 Oximetry O2 Sat by Pulse Oximetry [ Assessment] 12/17/16 12/17/16 12/17/16 05:45 06:00 06:15 Temperature Pulse Rate 138 H 139 H 143 H Pulse Rate [ Anterior Bilateral Throughout] Respiratory 26 H 25 H 25 H Rate Respiratory Rate [Anterior Bilateral Throughout] Blood Pressure 130/65 127/55 127/55 O2 Sat by Pulse 95 95 95 Oximetry O2 Sat by Pulse Oximetry [ Assessment] 12/17/16 12/17/16 12/17/16 06:19 06:30 06:45 Temperature Pulse Rate 145 H 132 H 147 H Pulse Rate [ Anterior Bilateral Throughout] Respiratory 14 25 H Rate Respiratory Rate [Anterior Bilateral Throughout] Blood Pressure 127/55 108/69 108/69 O2 Sat by Pulse 96 97 Oximetry O2 Sat by Pulse Oximetry [ Assessment] 12/17/16 12/17/16 12/17/16 07:00 07:15 07:30 Temperature Pulse Rate 145 H 146 H 132 H Pulse Rate [ Anterior Bilateral Throughout] Respiratory 23 22 15 Rate Respiratory Rate [Anterior Bilateral Throughout] Blood Pressure 107/70 107/70 107/70 O2 Sat by Pulse 92 98 98 Oximetry O2 Sat by Pulse Oximetry [ Assessment] 12/17/16 12/17/16 12/17/16 07:45 08:00 08:15 Temperature 98.3 F Pulse Rate 138 H 124 H 127 H Pulse Rate [ 154 H Anterior Bilateral Throughout] Respiratory 10 L 11 L 20 Rate Respiratory 23 Rate [Anterior Bilateral Throughout] Blood Pressure 108/69 108/68 108/68 O2 Sat by Pulse 99 99 98 Oximetry O2 Sat by Pulse Oximetry [ Assessment] 12/17/16 12/17/16 12/17/16 08:30 08:45 09:00 Temperature Pulse Rate 147 H 143 H 154 H Pulse Rate [ Anterior Bilateral Throughout] Respiratory 17 11 L Rate Respiratory Rate [Anterior Bilateral Throughout] Blood Pressure 100/67 100/67 110/57 O2 Sat by Pulse 99 98 94 Oximetry O2 Sat by Pulse 95 Oximetry [ Assessment] 12/17/16 12/17/16 12/17/16 09:01 09:15 09:30 Temperature Pulse Rate 143 H 135 H 140 H Pulse Rate [ Anterior Bilateral Throughout] Respiratory 18 23 16 Rate Respiratory Rate [Anterior Bilateral Throughout] Blood Pressure 121/79 121/79 113/77 O2 Sat by Pulse 96 96 91 Oximetry O2 Sat by Pulse Oximetry [ Assessment] 12/17/16 12/17/16 12/17/16 09:45 10:00 10:14 Temperature Pulse Rate 141 H 145 H 149 H Pulse Rate [ Anterior Bilateral Throughout] Respiratory 26 H 20 Rate Respiratory Rate [Anterior Bilateral Throughout] Blood Pressure 113/77 110/57 110/57 O2 Sat by Pulse 94 88 Oximetry O2 Sat by Pulse Oximetry [ Assessment] 12/17/16 12/17/16 11:25 11:30 Temperature 98.8 F Pulse Rate 122 H 112 H Pulse Rate [ Anterior Bilateral Throughout] Respiratory 12 Rate Respiratory Rate [Anterior Bilateral Throughout] Blood Pressure 103/67 90/59 O2 Sat by Pulse Oximetry O2 Sat by Pulse Oximetry [ Assessment] - General Appearance General appearance: well-developed, well-nourished, appears stated age, intubated EENT: PERRL, mucous membranes moist Neck: no JVD, other (tracheostomy tube in place. Connected to the ventilator. Left IJ PermCath in place) Respiratory: Present: Ronchi (few scattered rhonchi) Cardiology: regular, normal heart rate, S1S2, no murmurs Gastrointestinal: normoactive bowel sounds, other (collection bag noted over her previous PEG tube site) Integumentary: no rash, other (1+ edema) - Lab 12/17/16 05:00 12/17/16 04:00 Most recent lab results ABG pH 7.450 pH Units (7.350-7.450) 12/05/16 Unknown ABG pCO2 29.6 mm Hg 12/05/16 Unknown ABG pO2 75.2 mm Hg (80.0-90.0) L 12/05/16 Unknown ABG HCO3 20.1 mmol/L (20.0-26.0) 12/05/16 Unknown ABG O2 Saturation 96.8 % (95.0-99.0) 12/05/16 Unknown Calcium 9.1 mg/dL (8.4-10.2) 12/17/16 04:00 Phosphorus 2.20 mg/dL (2.5-4.5) L 12/17/16 04:00 Magnesium 2.70 mg/dL (1.7-2.3) H 12/17/16 04:00 Urine Creatinine 19.7 mg/dL (0.1-20.0) 11/12/16 10:18 Urine Sodium 36 mEq/L 09/16/16 19:19 Urine Total Protein 16 mg/dL (5-11.8) H 09/16/16 19:19
[2016-12-17] MEDS: ALBURX 25% (ALBUMIN) IV PRN (11:56)
[2016-12-17] MEDS: Vasostrict 20 UNIT in NACL 0.9% 100 ML IV SCH ×2 (12:07→18:00)
[2016-12-17] MEDS: TRANSDERM-SCOP TD SCH (14:52)
[2016-12-17] MEDS: HEPARIN IV PRN (14:56)
--- NOTE | 2016-12-17 17:22 | Progress Note ---
Assessment and Plan Assessment and plan: Patient is 46-year-old woman with a history of hypertension, diabetes, asthma, hyperlipidemia, chronic kidney disease and anxiety, who was brought in by family because she couldn't get her words out, her face was also twisted, she was admitted for acute CVA and accelerated hypertension, she had a hx of poor adherence with her medications, and uncontrolled htn. Patient's SBP on admission was noted be greater than 260. TPA was started but this it was discontinued after 5 minutes because her blood pressure became uncontrolled. The TPA was not initiated again because the patient was outside the TPA window. Patient has had a prolonged hospital stay complicated with recurrent severe sepsis. Patient with most recent event also status post cardiac arrest on and received CPR. -Severe Sepsis with septic shock, recurrent. Patient with multiple episodes of sepsis. Initial episode due to presumed aspiration pneumonia and septic episode on 09/23 from candidemia then a third episode from peritonitis from gastric perforation from dislodged PEG +/-UTI. Patient was also noted to have had Candidemia with Blood cultures positive for Silvia albicans 09/23, 09/25 but negative on 09/30. Antibiotic discontinued on 12/05 per ID. patient is s/p R thoracentesis on 11/14, 240cc of serous fluid removed, cx of fluid was negative. Also, Stool negative for C. difficile -Surgical wound infection/gram-negative sepsis/candidemia/peritonitis. Continue wound care to ostomy sites -Acute hypoxic respiratory failure, status post tracheostomy Patient placed back on ventilation. Patient currently with CPAP mode. Patient failed T-piece trials. Tracheostomy tube leak. Pulmonary following -Acute massive CVA with mass effect; continue antiplatelets and statins CT showed continued evolution of left MCA infarct with slight mass effect and edema, and there is no hemorrhage -PRINCE showed hyperdynamic ventricle with ef of 75%, neither clot nor septal defect seen -MRA Brain shows near complete occlusion of M2 and M3 of the left MCA carotid doppler negative -Echo shows preserved systolic function but does show some left ventricular diastolic dysfunction -continue asa and statin -Oliguric acute kidney injury. Etiology secondary to ATN on CKD. Baseline creatinine is approximately 1.7. -Paroxysmal atrial fibrillation with rapid ventricular rate, failed cardioversion Continue current medications, Not a candidate for anticoagulation secondary to anemia, thrombocytopenia and massive CVA -Anemia; probably secondary to GI bleeding Patient received multiple units of PRBC in the past, hemoglobin currently stable -Toxic metabolic encephalopathy; supportive care -Diabetes mellitus type 2, Insulin/SSI -Severe protein caloric malnutrition, cont TPN -s/p Thrombocytopenia. Now resolved -DVT prophylaxis, SCDs, no pharmacological agent given anemia , thrombocytopenia , massive stroke -Full code status, very poor prognosis now on TPN History Interval history: Patient seen and examined. Follow up on current diagnosis/respiratory failure. Still intubated, Imaging, old records, testing, labs, nursing notes reviewed. Hospitalist Physical - Physical exam Narrative exam: GEN: Ill appearing, trach, staring NECK: SUPPLE, trach in place CVS: Tachycardic irregular irregular NORMAL S1S2 LUNGS/CHEST: NORMAL CHEST EXPANSION B, GOOD AIR ENTRY B ABD: SOFT, NTND, 3 ostomy bags in 3 different locations, GBS, NO REBOUND OR GUARDING EXT/SKIN: NO SIGNIFICANT EDEMA OR RASH MSK: +spontaneous movement NEURO: CN 2-12 GROSSLY INTACT, on a ventilator PSY: Comatose, - Constitutional Vitals: Temp Pulse Resp BP Pulse Ox 98.6 F 125 H 20 94/58 99 12/17/16 15:58 12/17/16 16:30 12/17/16 16:00 12/17/16 16:30 12/17/16 16:35 General appearance: Present: no acute distress, well-nourished, obese Results - Labs CBC & Chem 7: 12/17/16 05:00 12/17/16 04:00 Labs: Laboratory Last Values WBC 20.0 K/mm3 (4.5-11.0) H 12/17/16 05:00 RBC 2.99 M/mm3 (3.65-5.03) L 12/17/16 05:00 Hgb 8.5 gm/dl (10.1-14.3) L 12/17/16 05:00 Hct 25.7 % (30.3-42.9) L 12/17/16 05:00 MCV 86 fl (79-97) 12/17/16 05:00 MCH 28 pg (28-32) 12/17/16 05:00 MCHC 33 % (30-34) 12/17/16 05:00 RDW 17.2 % (13.2-15.2) H 12/17/16 05:00 Plt Count 387 K/mm3 (140-440) 12/17/16 05:00 Lymph % (Auto) 20.2 % (13.4-35.0) 12/13/16 04:00 [place] % (Auto) 7.2 % (0.0-7.3) 12/13/16 04:00 Eos % (Auto) 0.6 % (0.0-4.3) 12/13/16 04:00 Baso % (Auto) 0.5 % (0.0-1.8) 12/13/16 04:00 Lymph # 3.8 K/mm3 (1.2-5.4) 12/13/16 04:00 [place] # 1.3 K/mm3 (0.0-0.8) H 12/13/16 04:00 Eos # 0.1 K/mm3 (0.0-0.4) 12/13/16 04:00 Baso # 0.1 K/mm3 (0.0-0.1) 12/13/16 04:00 Add Manual Diff Complete 12/16/16 15:30 Total Counted 100 12/16/16 15:30 Seg Neutrophils % 71.5 % (40.0-70.0) H 12/13/16 04:00 Seg Neuts % (Manual) 48.0 % (40.0-70.0) 12/16/16 15:30 Band Neutrophils % 26.0 % 12/16/16 15:30 Lymphocytes % (Manual) 16.0 % (13.4-35.0) 12/16/16 15:30 Reactive Lymphs % (Man) 0 % 12/16/16 15:30 Monocytes % (Manual) 10.0 % (0.0-7.3) H 12/16/16 15:30 Eosinophils % (Manual) 0 % (0.0-4.3) 12/16/16 15:30 Basophils % (Manual) 0 % (0.0-1.8) 12/16/16 15:30 Metamyelocytes % 0 % 12/16/16 15:30 Myelocytes % 0 % 12/16/16 15:30 Promyelocytes % 0 % 12/16/16 15:30 Blast Cells % 0 % 12/16/16 15:30 Nucleated RBC % Not Reportable 12/16/16 15:30 Seg Neutrophils # 13.4 K/mm3 (1.8-7.7) H 12/13/16 04:00 Seg Neutrophils # Man 8.5 K/mm3 (1.8-7.7) H 12/16/16 15:30 Band Neutrophils # 4.6 K/mm3 12/16/16 15:30 Lymphocytes # (Manual) 2.8 K/mm3 (1.2-5.4) 12/16/16 15:30 Abs React Lymphs (Man) 0.0 K/mm3 12/16/16 15:30 Monocytes # (Manual) 1.8 K/mm3 (0.0-0.8) H 12/16/16 15:30 Eosinophils # (Manual) 0.0 K/mm3 (0.0-0.4) 12/16/16 15:30 Basophils # (Manual) 0.0 K/mm3 (0.0-0.1) 12/16/16 15:30 Metamyelocytes # 0.0 K/mm3 12/16/16 15:30 Myelocytes # 0.0 K/mm3 12/16/16 15:30 Promyelocytes # 0.0 K/mm3 12/16/16 15:30 Blast Cells # 0.0 K/mm3 12/16/16 15:30 Pathologist Review 09/13/16 04:00 WBC Morphology Not Reportable 12/16/16 15:30 Hypersegmented Neuts Not Reportable 12/16/16 15:30 Hyposegmented Neuts Not Reportable 12/16/16 15:30 Hypogranular Neuts Not Reportable 12/16/16 15:30 Smudge Cells Not Reportable 12/16/16 15:30 Toxic Granulation Not Reportable 12/16/16 15:30 Toxic Vacuolation Not Reportable 12/16/16 15:30 Dohle Bodies Not Reportable 12/16/16 15:30 Pelger-Huet Anomaly Not Reportable 12/16/16 15:30 Jasmina Rods Not Reportable 12/16/16 15:30 Platelet Estimate Consistent w auto 12/16/16 15:30 Clumped Platelets Not Reportable 12/16/16 15:30 Plt Clumps, EDTA Not Reportable 12/16/16 15:30 Large Platelets Not Reportable 12/16/16 15:30 Giant Platelets Not Reportable 12/16/16 15:30 Platelet Satelliting Not Reportable 12/16/16 15:30 Plt Morphology Comment Not Reportable 12/16/16 15:30 RBC Morphology Not Reportable 12/16/16 15:30 Dimorphic RBCs Not Reportable 12/16/16 15:30 Polychromasia Few 12/16/16 15:30 Hypochromasia 2+ 12/16/16 15:30 Poikilocytosis Not Reportable 12/16/16 15:30 Anisocytosis 1+ 12/16/16 15:30 Microcytosis Not Reportable 12/16/16 15:30 Macrocytosis Not Reportable 12/16/16 15:30 Spherocytes Not Reportable 12/16/16 15:30 Pappenheimer Bodies Not Reportable 12/16/16 15:30 Sickle Cells Not Reportable 12/16/16 15:30 Target Cells Not Reportable 12/16/16 15:30 Tear Drop Cells Not Reportable 12/16/16 15:30 Ovalocytes Not Reportable 12/16/16 15:30 Stomatocytes Rare 12/03/16 04:00 Helmet Cells Not Reportable 12/16/16 15:30 [place] Bodies Not Reportable 12/16/16 15:30 [place] Rings Not Reportable 12/16/16 15:30 Chuck Cells Not Reportable 12/16/16 15:30 Bite Cells Not Reportable 12/16/16 15:30 Crenated Cell Not Reportable 12/16/16 15:30 Elliptocytes Not Reportable 12/16/16 15:30 Acanthocytes (Spur) Not Reportable 12/16/16 15:30 Rouleaux Not Reportable 12/16/16 15:30 Hemoglobin C Crystals Not Reportable 12/16/16 15:30 Schistocytes Not Reportable 12/16/16 15:30 Malaria parasites Not Reportable 12/16/16 15:30 ESR > 140.0 mm/Hr (0-20) 09/08/16 11:48 Jun Bodies Not Reportable 12/16/16 15:30 Hem Pathologist Commnt No 12/16/16 15:30 PT 16.8 Sec. (12.2-14.9) H 11/17/16 03:20 INR 1.37 (0.87-1.13) H 11/17/16 03:20 APTT 33.0 Sec. (24.2-36.6) 10/09/16 03:45 Thrombin Time 16.8 Sec. (15.1-19.6) 09/03/16 00:10 Fibrinogen 750 mg/dl (211-480) H 09/08/16 11:48 Lupus Anticoagulant see below 09/12/16 09:59 LA PTT Baseline See scanned report 09/12/16 09:59 dRVVT Confirm Interp Positive (Negative) H 09/12/16 09:59 dRVVT Screen 50:50 See scanned report 09/12/16 09:59 dRVVT Mix Interpret See scanned report 09/12/16 09:59 Protein C Antigen 122 % (70-140) 09/08/16 15:35 Free Protein S 97 % normal (50-147) 09/08/16 15:35 Total Protein S 109 % (70-140) 09/08/16 15:35 Antithrombin III Ag 100 % (80-120) 09/08/16 15:35 Heparin Anti-Xa, Unfract Negative (Negative) 09/29/16 13:35 Factor V Activity 182 % (65-150) H 09/08/16 15:35 POC ABG pH 7.487 (7.35-7.45) H 11/25/16 14:12 ABG pH 7.450 pH Units (7.350-7.450) 12/05/16 Unknown POC ABG pCO2 39.0 (35-45) 11/25/16 14:12 ABG pCO2 29.6 mm Hg 12/05/16 Unknown POC ABG pO2 153 (80-105) H 11/25/16 14:12 ABG pO2 75.2 mm Hg (80.0-90.0) L 12/05/16 Unknown POC ABG HCO3 29.5 11/25/16 14:12 ABG HCO3 20.1 mmol/L (20.0-26.0) 12/05/16 Unknown POC ABG Total CO2 31 11/25/16 14:12 POC ABG O2 Sat 99 11/25/16 14:12 ABG O2 Saturation 96.8 % (95.0-99.0) 12/05/16 Unknown ABG O2 Content 9.9 (0.0-44) 12/05/16 Unknown POC ABG Base Excess 6 11/25/16 14:12 ABG Base Excess -3.4 mmol/L (-2.0-3.0) L 12/05/16 Unknown ABG Hemoglobin 7.4 gm/dl (12.0-16.0) L 12/05/16 Unknown ABG Carboxyhemoglobin 1.8 % (0.0-5.0) 12/05/16 Unknown ABG Methemoglobin 0.6 % (0.0-1.5) 12/05/16 Unknown Oxyhemoglobin 94.5 % (95.0-99.0) L 12/05/16 Unknown FiO2 30 % 12/05/16 Unknown Sodium 139 mmol/L (137-145) 12/17/16 04:00 Potassium 4.5 mmol/L (3.6-5.0) 12/17/16 04:00 Chloride 97.7 mmol/L (98-107) L 12/17/16 04:00 Carbon Dioxide 22 mmol/L (22-30) 12/17/16 04:00 Anion Gap 24 mmol/L 12/17/16 04:00 BUN 73 mg/dL (7-17) H 12/17/16 04:00 Creatinine 1.7 mg/dL (0.7-1.2) H 12/17/16 04:00 Estimated GFR 39 ml/min 12/17/16 04:00 BUN/Creatinine Ratio 43 % 12/17/16 04:00 Glucose 136 mg/dL (65-100) H 12/17/16 04:00 POC Glucose 162 (70-105) H 12/17/16 05:39 Osmolality 351 Mosm/kg 09/16/16 11:47 Lactic Acid 4.50 mmol/L (0.7-2.0) H* 09/28/16 07:25 Calcium 9.1 mg/dL (8.4-10.2) 12/17/16 04:00 Phosphorus 2.20 mg/dL (2.5-4.5) L 12/17/16 04:00 Magnesium 2.70 mg/dL (1.7-2.3) H 12/17/16 04:00 Total Bilirubin 0.20 mg/dL (0.1-1.2) 12/04/16 04:00 Direct Bilirubin 0.3 mg/dL (0-0.2) H 10/10/16 05:00 Indirect Bilirubin 0.1 mg/dL 10/10/16 05:00 AST 29 units/L (5-40) 12/04/16 04:00 ALT 43 units/L (7-56) 12/04/16 04:00 Alkaline Phosphatase 155 units/L (35-129) H 12/04/16 04:00 Ammonia 27.0 umol/L (25-60) 09/07/16 08:37 Lactate Dehydrogenase 196 units/L (91-180) H 11/11/16 06:59 Total Creatine Kinase 121 units/L (30-135) 09/29/16 20:12 CK-MB (CK-2) < 1.0 ng/mL (0.0-4.0) 09/29/16 20:12 CK-MB (CK-2) Rel Index 0.8 (0-4) 09/29/16 20:12 Troponin T 0.204 ng/mL (0.00-0.029) H* 09/29/16 20:12 C-Reactive Protein 19.30 mg/dL (0.00-1.30) H 12/05/16 05:00 Total Protein 5.5 g/dL (6.3-8.2) L 12/04/16 04:00 Albumin 1.5 g/dL (3.9-5) L 12/04/16 04:00 Albumin/Globulin Ratio 0.4 % 12/04/16 04:00 Prealbumin 0.180 g/L (0.200-0.400) L 11/06/16 06:25 Triglycerides 137 mg/dL (2-149) 09/29/16 20:12 Cholesterol 31 mg/dL (50-199) L 09/29/16 20:12 LDL Cholesterol Direct 4 mg/dL (50-130) L 09/29/16 20:12 HDL Cholesterol 3 mg/dL (40-59) L 09/29/16 20:12 Cholesterol/HDL Ratio 10.33 % 09/29/16 20:12 Angiotensin Convert Enz See scanned report 09/08/16 11:48 Renin 0.99 ng/mL/h (0.25-5.82) 10/07/16 10:56 Aldosterone <1 ng/dL () 10/07/16 10:56 Aldosterone/Renin Dir see below 10/07/16 10:56 Serotonin Release Assay See scanned report 09/29/16 13:35 TSH 1.010 mlU/mL (0.270-4.200) 09/07/16 08:37 HCG, Qual Negative (Negative) 09/03/16 00:10 Urine Color Yellow (Yellow) 11/05/16 13:09 Urine Turbidity Clear (Clear) 11/05/16 13:09 Urine pH 9.0 (5.0-7.0) H 11/05/16 13:09 Ur Specific [place] 1.011 (1.003-1.030) 11/05/16 13:09 Urine Protein 100 mg/dl mg/dL (Negative) 11/05/16 13:09 Urine Glucose (UA) Neg mg/dL (Negative) 11/05/16 13:09 Urine Ketones Neg mg/dL (Negative) 11/05/16 13:09 Urine Blood Neg (Negative) 11/05/16 13:09 Urine Nitrite Neg (Negative) 11/05/16 13:09 Urine Bilirubin Neg (Negative) 11/05/16 13:09 Urine Urobilinogen < 2.0 mg/dL (<2.0) 11/05/16 13:09 Ur Leukocyte Esterase Neg (Negative) 11/05/16 13:09 Urine WBC (Auto) 4.0 /HPF (0.0-6.0) 11/05/16 13:09 Urine RBC (Auto) 1.0 /HPF (0.0-6.0) 11/05/16 13:09 U Epithel Cells (Auto) 1.0 /HPF (0-13.0) 10/07/16 18:30 Urine Bacteria (Auto) 4+ /HPF (Negative) 11/05/16 13:09 Urine WBC Clumps 2+ /HPF 09/07/16 02:47 Hyaline Casts 4 /LPF 09/07/16 02:47 Urine Mucus Few /HPF 10/07/16 18:30 Urine Yeast (Budding) 3+ /HPF 10/07/16 18:30 Urine Eosinophils None seen (None Seen) 09/07/16 16:00 Urine Total Volume 950 11/12/16 10:18 Urine Creatinine 19.7 mg/dL (0.1-20.0) 11/12/16 10:18 Height (in) 65.0 inches 11/12/16 10:18 Weight (lb) 181.0 lbs 11/12/16 10:18 Creatinine Clearance 5 11/12/16 10:18 Urine Sodium 36 mEq/L 09/16/16 19:19 Urine Total Protein 16 mg/dL (5-11.8) H 09/16/16 19:19 Fluid Total Protein < 3.0 (15.0-45.0) L 11/10/16 14:20 Fluid LDH 123 11/10/16 14:20 Vancomycin Trough 2.3 ug/mL (5.0-20.0) L 09/21/16 13:00 Random Vancomycin 16.5 ug/mL (0-40.0) 11/28/16 09:45 Urine Opiates Screen Presumptive negative 09/03/16 15:11 Urine Methadone Screen Presumptive positive 09/03/16 15:11 Ur Barbiturates Screen Presumptive positive 09/03/16 15:11 Ur Phencyclidine Scrn Presumptive negative 09/03/16 15:11 Ur Amphetamines Screen Presumptive negative 09/03/16 15:11 U Benzodiazepines Scrn Presumptive negative 09/03/16 15:11 Urine Cocaine Screen Presumptive negative 09/03/16 15:11 U Marijuana (THC) Screen Presumptive positive 09/03/16 15:11 Drugs of Abuse Note Disclamer 09/03/16 15:11 Rheumatoid Factor 24 IU/ml (0-13) H 09/08/16 11:48 SAHIL Screen Negative (Negative) 09/07/16 09:20 Proteinase 3 (PR3) Ab <1.0 AI (<1.0) 09/07/16 09:20 Myeloperoxidase Ab <1.0 AI (<1.0) 09/07/16 09:20 Sjogren's Antibody <1.0 AI (<1.0) 09/08/16 15:35 Scl-70 Scleroderma Ab <1.0 AI (<1.0) 09/08/16 15:35 Centromere B Antibody <1.0 AI (<1.0) 09/08/16 12:02 Heparin-induced Plt Ab Negative (Negative) 09/29/16 13:35 UF Heparin High Dose 11 % Release 09/29/16 13:35 SUDHIR UFH Low Dose 0.1 6 % Release 09/29/16 13:35 SUDHIR UFH Low Dose 0.5 8 % Release 09/29/16 13:35 Cardiolipid IgG Ab <14 GPL (<=14) 09/12/16 09:59 Cardiolipid IgA Ab <11 APL (<=11) 09/12/16 09:59 Cardiolipid IgM Ab <12 MPL (<=12) 09/12/16 09:59 Complement C3 148 mg/dL (90-180) 09/07/16 09:20 Complement C4 58 mg/dL (16-47) H 09/07/16 09:20 RPR Nonreactive (Nonreactive) 09/08/16 11:48 Hepatitis A IgM Ab Non-reactive (NonReactive) 09/24/16 14:40 Hep Bs Antigen Non-reactive (Negative) 09/24/16 14:40 Hep B Core IgM Ab Non-reactive (NonReactive) 09/24/16 14:40 Hepatitis C Antibody Non-reactive (NonReactive) 09/24/16 14:40 HIV 1&2 Antibody Rapid Non react (Non React) 09/08/16 11:48 HIV P24 Antigen Non react (Non React) 09/08/16 11:48 Miscellaneous Test Flexitest 1 H 11/05/16 13:25 Blood Type A POSITIVE 12/16/16 16:25 Antibody Screen Negative 12/16/16 16:25 DELORIS Antibody Screen Negative 11/24/16 11:20 Crossmatch See Detail 12/16/16 16:25
[2016-12-17] MEDS ORDERED: TPN ADULT IV SCH (20:00)
[2016-12-18] MEDS: REGLAN IV SCH ×4 (00:01→17:28)
[2016-12-18] MEDS: HumuLIN R SUB-Q SCH ×4 (00:57→17:29)
[2016-12-18] MEDS: DUONEB *Not for PRN Use IH SCH ×4 (02:30→19:22)
[2016-12-18] MEDS: Vasostrict 20 UNIT in NACL 0.9% 100 ML IV SCH (05:17)
[2016-12-18] MEDS: APRESOLINE PO SCH ×2 (05:50→14:00)
[2016-12-18] MEDS: LOPRESSOR PO SCH ×4 (05:51→17:28)
[2016-12-18] MEDS: HEPARIN SUB-Q SCH ×2 (09:58→22:11)
[2016-12-18] MEDS: ROBINUL PO SCH ×2 (09:58→22:11)
[2016-12-18] MEDS: PROTONIX FEEDTUBE SCH (09:58)
[2016-12-18] MEDS: NORVASC PO SCH (10:00)
[2016-12-18 11:00] LABS: Albumin 1.8 g/dL (3.9-5); Calcium 8.8 mg/dL (8.4-10.2)
--- NOTE | 2016-12-18 11:47 | Progress Note ---
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 * Patient noted to be tachycardic today. Management as per ICU team * Tolerating TPN well at this time. Shall monitor her electrolytes * monitor for renal recovery * Rate control per cardiology * Dose medications for renal function * Avoid potential nephrotoxins Subjective Date of service: 12/18/16 Principal diagnosis: Acute resp failure on MVS; S/P Acute CVA; Acute Encephalopathy; JUANITA Interval history: Patient remains in the ICU. Currently on 28% FiO2. Resting comfortably. Objective - Vital Signs Vital signs: Vital Signs - 12hr 12/18/16 12/18/16 12/18/16 00:00 00:15 00:30 Temperature Pulse Rate 126 H 124 H 106 H Pulse Rate [ Anterior Bilateral Throughout] Pulse Rate [ From Monitor] Respiratory 26 H 24 24 Rate Respiratory Rate [Anterior Bilateral Throughout] Blood Pressure 95/63 109/70 104/76 O2 Sat by Pulse 92 96 97 Oximetry O2 Sat by Pulse Oximetry [ Assessment] 12/18/16 12/18/16 12/18/16 00:45 01:00 01:08 Temperature Pulse Rate 124 H 108 H 116 H Pulse Rate [ Anterior Bilateral Throughout] Pulse Rate [ 108 H From Monitor] Respiratory 25 H 25 H Rate Respiratory Rate [Anterior Bilateral Throughout] Blood Pressure 104/79 102/72 O2 Sat by Pulse 98 98 Oximetry O2 Sat by Pulse Oximetry [ Assessment] 12/18/16 12/18/16 12/18/16 01:15 01:30 01:45 Temperature Pulse Rate 105 H 111 H 119 H Pulse Rate [ Anterior Bilateral Throughout] Pulse Rate [ From Monitor] Respiratory 23 22 24 Rate Respiratory Rate [Anterior Bilateral Throughout] Blood Pressure 103/69 103/69 113/75 O2 Sat by Pulse 96 99 100 Oximetry O2 Sat by Pulse Oximetry [ Assessment] 12/18/16 12/18/16 12/18/16 02:00 02:15 02:30 Temperature Pulse Rate 114 H 114 H 123 H Pulse Rate [ 82 Anterior Bilateral Throughout] Pulse Rate [ From Monitor] Respiratory 19 18 24 Rate Respiratory 25 H Rate [Anterior Bilateral Throughout] Blood Pressure 123/82 110/79 113/79 O2 Sat by Pulse 100 100 99 Oximetry O2 Sat by Pulse Oximetry [ Assessment] 12/18/16 12/18/16 12/18/16 02:45 03:00 03:15 Temperature Pulse Rate 122 H 119 H 131 H Pulse Rate [ 84 Anterior Bilateral Throughout] Pulse Rate [ From Monitor] Respiratory 22 22 22 Rate Respiratory 25 H Rate [Anterior Bilateral Throughout] Blood Pressure 118/82 104/72 114/72 O2 Sat by Pulse 100 100 97 Oximetry O2 Sat by Pulse Oximetry [ Assessment] 12/18/16 12/18/16 12/18/16 03:30 03:33 03:45 Temperature 98.8 F Pulse Rate 125 H 131 H Pulse Rate [ Anterior Bilateral Throughout] Pulse Rate [ From Monitor] Respiratory 25 H 23 Rate Respiratory Rate [Anterior Bilateral Throughout] Blood Pressure 109/79 120/73 O2 Sat by Pulse 98 100 Oximetry O2 Sat by Pulse Oximetry [ Assessment] 12/18/16 12/18/16 12/18/16 04:00 04:15 04:27 Temperature Pulse Rate 123 H 132 H Pulse Rate [ Anterior Bilateral Throughout] Pulse Rate [ 128 H From Monitor] Respiratory 25 H 28 H Rate Respiratory Rate [Anterior Bilateral Throughout] Blood Pressure 119/78 116/80 O2 Sat by Pulse 98 91 Oximetry O2 Sat by Pulse 96 Oximetry [ Assessment] 12/18/16 12/18/16 12/18/16 04:30 04:45 05:00 Temperature Pulse Rate 127 H 129 H 133 H Pulse Rate [ Anterior Bilateral Throughout] Pulse Rate [ From Monitor] Respiratory 25 H 25 H 26 H Rate Respiratory Rate [Anterior Bilateral Throughout] Blood Pressure 115/70 115/77 113/84 O2 Sat by Pulse 96 97 96 Oximetry O2 Sat by Pulse Oximetry [ Assessment] 12/18/16 12/18/16 12/18/16 05:15 05:30 05:45 Temperature Pulse Rate 135 H 133 H 133 H Pulse Rate [ Anterior Bilateral Throughout] Pulse Rate [ From Monitor] Respiratory 24 24 22 Rate Respiratory Rate [Anterior Bilateral Throughout] Blood Pressure 107/70 103/78 111/75 O2 Sat by Pulse 96 98 97 Oximetry O2 Sat by Pulse Oximetry [ Assessment] 12/18/16 12/18/16 12/18/16 05:50 05:51 06:00 Temperature Pulse Rate 128 H 132 H 128 H Pulse Rate [ Anterior Bilateral Throughout] Pulse Rate [ From Monitor] Respiratory 23 Rate Respiratory Rate [Anterior Bilateral Throughout] Blood Pressure 111/75 111/75 119/77 O2 Sat by Pulse 97 Oximetry O2 Sat by Pulse Oximetry [ Assessment] 12/18/16 12/18/16 12/18/16 06:16 06:30 06:45 Temperature Pulse Rate 148 H 146 H 141 H Pulse Rate [ Anterior Bilateral Throughout] Pulse Rate [ From Monitor] Respiratory 32 H 20 32 H Rate Respiratory Rate [Anterior Bilateral Throughout] Blood Pressure 138/91 138/91 105/54 O2 Sat by Pulse 95 93 93 Oximetry O2 Sat by Pulse Oximetry [ Assessment] 12/18/16 12/18/16 12/18/16 07:00 07:15 07:30 Temperature Pulse Rate 148 H 135 H 133 H Pulse Rate [ Anterior Bilateral Throughout] Pulse Rate [ From Monitor] Respiratory 29 H 21 28 H Rate Respiratory Rate [Anterior Bilateral Throughout] Blood Pressure 109/61 98/65 106/64 O2 Sat by Pulse 95 94 95 Oximetry O2 Sat by Pulse Oximetry [ Assessment] 12/18/16 12/18/16 12/18/16 07:45 08:00 08:10 Temperature 98.7 F Pulse Rate 148 H 149 H Pulse Rate [ Anterior Bilateral Throughout] Pulse Rate [ 144 H From Monitor] Respiratory 28 H 28 H 23 Rate Respiratory Rate [Anterior Bilateral Throughout] Blood Pressure 100/61 110/61 O2 Sat by Pulse 96 96 Oximetry O2 Sat by Pulse Oximetry [ Assessment] 12/18/16 12/18/16 12/18/16 08:15 08:30 08:45 Temperature Pulse Rate 148 H 145 H 159 H Pulse Rate [ Anterior Bilateral Throughout] Pulse Rate [ From Monitor] Respiratory 27 H 29 H 15 Rate Respiratory Rate [Anterior Bilateral Throughout] Blood Pressure 100/61 106/69 99/63 O2 Sat by Pulse 96 97 97 Oximetry O2 Sat by Pulse Oximetry [ Assessment] 12/18/16 12/18/16 12/18/16 09:00 09:15 09:17 Temperature Pulse Rate 137 H 141 H 147 H Pulse Rate [ Anterior Bilateral Throughout] Pulse Rate [ From Monitor] Respiratory 29 H 29 H Rate Respiratory Rate [Anterior Bilateral Throughout] Blood Pressure 98/65 100/72 100/72 O2 Sat by Pulse 98 99 98 Oximetry O2 Sat by Pulse Oximetry [ Assessment] 12/18/16 12/18/16 12/18/16 09:30 09:37 09:45 Temperature Pulse Rate 145 H 131 H Pulse Rate [ Anterior Bilateral Throughout] Pulse Rate [ From Monitor] Respiratory 35 H 31 H Rate Respiratory Rate [Anterior Bilateral Throughout] Blood Pressure 106/76 101/67 O2 Sat by Pulse 94 97 Oximetry O2 Sat by Pulse 100 Oximetry [ Assessment] 12/18/16 12/18/16 12/18/16 10:00 10:16 10:30 Temperature Pulse Rate 147 H 147 H 150 H Pulse Rate [ Anterior Bilateral Throughout] Pulse Rate [ From Monitor] Respiratory 29 H 27 H 27 H Rate Respiratory Rate [Anterior Bilateral Throughout] Blood Pressure 97/76 95/66 99/54 O2 Sat by Pulse 97 98 98 Oximetry O2 Sat by Pulse Oximetry [ Assessment] 12/18/16 12/18/16 12/18/16 10:45 11:00 11:41 Temperature 98.8 F Pulse Rate 152 H 150 H Pulse Rate [ Anterior Bilateral Throughout] Pulse Rate [ From Monitor] Respiratory 23 27 H Rate Respiratory Rate [Anterior Bilateral Throughout] Blood Pressure 85/57 91/60 O2 Sat by Pulse 98 98 Oximetry O2 Sat by Pulse Oximetry [ Assessment] - General Appearance General appearance: well-developed, well-nourished, appears stated age, intubated EENT: PERRL, mucous membranes moist Neck: no JVD, other (tracheostomy tube in place. Connected to the ventilator) Respiratory: Present: Ronchi (few scattered rhonchi) Cardiology: regular, normal heart rate Gastrointestinal: normoactive bowel sounds, other (collection bag noted over her old PEG tube site) Integumentary: other (1+ edema) - Lab 12/17/16 05:00 12/18/16 05:00 Most recent lab results ABG pH 7.450 pH Units (7.350-7.450) 12/05/16 Unknown ABG pCO2 29.6 mm Hg 12/05/16 Unknown ABG pO2 75.2 mm Hg (80.0-90.0) L 12/05/16 Unknown ABG HCO3 20.1 mmol/L (20.0-26.0) 12/05/16 Unknown ABG O2 Saturation 96.8 % (95.0-99.0) 12/05/16 Unknown Calcium 8.8 mg/dL (8.4-10.2) 12/18/16 05:00 Phosphorus 1.70 mg/dL (2.5-4.5) L D 12/18/16 05:00 Magnesium 2.10 mg/dL (1.7-2.3) 12/18/16 05:00 Urine Creatinine 19.7 mg/dL (0.1-20.0) 11/12/16 10:18 Urine Sodium 36 mEq/L 09/16/16 19:19 Urine Total Protein 16 mg/dL (5-11.8) H 09/16/16 19:19
--- NOTE | 2016-12-18 12:36 | Progress Note ---
Assessment and Plan Assessment and plan: Patient is 46-year-old woman with a history of hypertension, diabetes, asthma, hyperlipidemia, chronic kidney disease and anxiety, who was brought in by family because she couldn't get her words out, her face was also twisted, she was admitted for acute CVA and accelerated hypertension, she had a hx of poor adherence with her medications, and uncontrolled htn. Patient's SBP on admission was noted be greater than 260. TPA was started but this it was discontinued after 5 minutes because her blood pressure became uncontrolled. The TPA was not initiated again because the patient was outside the TPA window. Patient has had a prolonged hospital stay complicated with recurrent severe sepsis. Patient with most recent event also status post cardiac arrest on and received CPR. -Severe Sepsis with septic shock, recurrent. Patient with multiple episodes of sepsis. Initial episode due to presumed aspiration pneumonia and septic episode on 09/23 from candidemia then a third episode from peritonitis from gastric perforation from dislodged PEG +/-UTI. Patient was also noted to have had Candidemia with Blood cultures positive for Silvia albicans 09/23, 09/25 but negative on 09/30. Antibiotic discontinued on 12/05 per ID. patient is s/p R thoracentesis on 11/14, 240cc of serous fluid removed, cx of fluid was negative. Also, Stool negative for C. difficile -Surgical wound infection/gram-negative sepsis/candidemia/peritonitis. Continue wound care to ostomy sites -Acute hypoxic respiratory failure, status post tracheostomy Patient placed back on ventilation. Patient currently with CPAP mode. Patient failed T-piece trials. Tracheostomy tube leak. Pulmonary following -Acute massive CVA with mass effect; continue antiplatelets and statins CT showed continued evolution of left MCA infarct with slight mass effect and edema, and there is no hemorrhage -PRINCE showed hyperdynamic ventricle with ef of 75%, neither clot nor septal defect seen -MRA Brain shows near complete occlusion of M2 and M3 of the left MCA carotid doppler negative -Echo shows preserved systolic function but does show some left ventricular diastolic dysfunction -continue asa and statin -Oliguric acute kidney injury. Etiology secondary to ATN on CKD. Baseline creatinine is approximately 1.7. -Paroxysmal atrial fibrillation with rapid ventricular rate, failed cardioversion Continue current medications, Not a candidate for anticoagulation secondary to anemia, thrombocytopenia and massive CVA -Anemia; probably secondary to GI bleeding Patient received multiple units of PRBC in the past, hemoglobin currently stable -Toxic metabolic encephalopathy; supportive care -Diabetes mellitus type 2, Insulin/SSI -Severe protein caloric malnutrition, cont TPN -s/p Thrombocytopenia. Now resolved -DVT prophylaxis, SCDs, no pharmacological agent given anemia , thrombocytopenia , massive stroke -Full code status, very poor prognosis now on TPN 12/18/16: yesterday pt became hypotensive after dialysis and Vasopressin was started by Dr. Lara. She was given iv hydralazine overnight. She is still on Vasopressin, now back in AFib/aflutter with RVR. i d/w Dr. Rollins who recommends iv amiodarone drip without bolus. I also spoke with [facility], Dr. De Leon. per Dr. Rollins: Paroxysmal Afib s/p failed cardioversion on 09/25 on IV lopressor for suppression considered not a candidate for anticoagulation due to severe anemia requiring blood transfusion The high probability of a clinically significant, sudden or life threatening deterioration of the [neurologic,cardiac] system(s) required my full and direct attention, intervention and personal management. The aggregate critical care time was [33 ] minutes. This time is in addition to time spent performing reported procedures but includes the following: [x] Data Review and interpretation [x] Patient assessment and monitoring of vital signs [x] Documentation [x] Medication orders and management History Interval history: Patient seen and examined. Follow up on current diagnosis/respiratory failure. Still intubated, Imaging, old records, testing, labs, nursing notes reviewed. Hospitalist Physical - Physical exam Narrative exam: GEN: Ill appearing, trach, staring NECK: SUPPLE, trach in place CVS: Tachycardic irregular irregular NORMAL S1S2 LUNGS/CHEST: NORMAL CHEST EXPANSION B, GOOD AIR ENTRY B ABD: SOFT, NTND, 3 ostomy bags in 3 different locations, GBS, NO REBOUND OR GUARDING EXT/SKIN: NO SIGNIFICANT EDEMA OR RASH MSK: +spontaneous movement NEURO: CN 2-12 GROSSLY INTACT, on a ventilator PSY: Comatose, - Constitutional Vitals: Temp Pulse Resp BP Pulse Ox 98.8 F 104 H 27 H 85/57 100 12/18/16 11:41 12/18/16 12:14 12/18/16 11:00 12/18/16 12:14 12/18/16 11:44 General appearance: Present: no acute distress, well-nourished, obese Results - Labs CBC & Chem 7: 12/17/16 05:00 12/18/16 05:00 Labs: Laboratory Last Values WBC 20.0 K/mm3 (4.5-11.0) H 12/17/16 05:00 RBC 2.99 M/mm3 (3.65-5.03) L 12/17/16 05:00 Hgb 8.5 gm/dl (10.1-14.3) L 12/17/16 05:00 Hct 25.7 % (30.3-42.9) L 12/17/16 05:00 MCV 86 fl (79-97) 12/17/16 05:00 MCH 28 pg (28-32) 12/17/16 05:00 MCHC 33 % (30-34) 12/17/16 05:00 RDW 17.2 % (13.2-15.2) H 12/17/16 05:00 Plt Count 387 K/mm3 (140-440) 12/17/16 05:00 Lymph % (Auto) 20.2 % (13.4-35.0) 12/13/16 04:00 [place] % (Auto) 7.2 % (0.0-7.3) 12/13/16 04:00 Eos % (Auto) 0.6 % (0.0-4.3) 12/13/16 04:00 Baso % (Auto) 0.5 % (0.0-1.8) 12/13/16 04:00 Lymph # 3.8 K/mm3 (1.2-5.4) 12/13/16 04:00 [place] # 1.3 K/mm3 (0.0-0.8) H 12/13/16 04:00 Eos # 0.1 K/mm3 (0.0-0.4) 12/13/16 04:00 Baso # 0.1 K/mm3 (0.0-0.1) 12/13/16 04:00 Add Manual Diff Complete 12/16/16 15:30 Total Counted 100 12/16/16 15:30 Seg Neutrophils % 71.5 % (40.0-70.0) H 12/13/16 04:00 Seg Neuts % (Manual) 48.0 % (40.0-70.0) 12/16/16 15:30 Band Neutrophils % 26.0 % 12/16/16 15:30 Lymphocytes % (Manual) 16.0 % (13.4-35.0) 12/16/16 15:30 Reactive Lymphs % (Man) 0 % 12/16/16 15:30 Monocytes % (Manual) 10.0 % (0.0-7.3) H 12/16/16 15:30 Eosinophils % (Manual) 0 % (0.0-4.3) 12/16/16 15:30 Basophils % (Manual) 0 % (0.0-1.8) 12/16/16 15:30 Metamyelocytes % 0 % 12/16/16 15:30 Myelocytes % 0 % 12/16/16 15:30 Promyelocytes % 0 % 12/16/16 15:30 Blast Cells % 0 % 12/16/16 15:30 Nucleated RBC % Not Reportable 12/16/16 15:30 Seg Neutrophils # 13.4 K/mm3 (1.8-7.7) H 12/13/16 04:00 Seg Neutrophils # Man 8.5 K/mm3 (1.8-7.7) H 12/16/16 15:30 Band Neutrophils # 4.6 K/mm3 12/16/16 15:30 Lymphocytes # (Manual) 2.8 K/mm3 (1.2-5.4) 12/16/16 15:30 Abs React Lymphs (Man) 0.0 K/mm3 12/16/16 15:30 Monocytes # (Manual) 1.8 K/mm3 (0.0-0.8) H 12/16/16 15:30 Eosinophils # (Manual) 0.0 K/mm3 (0.0-0.4) 12/16/16 15:30 Basophils # (Manual) 0.0 K/mm3 (0.0-0.1) 12/16/16 15:30 Metamyelocytes # 0.0 K/mm3 12/16/16 15:30 Myelocytes # 0.0 K/mm3 12/16/16 15:30 Promyelocytes # 0.0 K/mm3 12/16/16 15:30 Blast Cells # 0.0 K/mm3 12/16/16 15:30 Pathologist Review 09/13/16 04:00 WBC Morphology Not Reportable 12/16/16 15:30 Hypersegmented Neuts Not Reportable 12/16/16 15:30 Hyposegmented Neuts Not Reportable 12/16/16 15:30 Hypogranular Neuts Not Reportable 12/16/16 15:30 Smudge Cells Not Reportable 12/16/16 15:30 Toxic Granulation Not Reportable 12/16/16 15:30 Toxic Vacuolation Not Reportable 12/16/16 15:30 Dohle Bodies Not Reportable 12/16/16 15:30 Pelger-Huet Anomaly Not Reportable 12/16/16 15:30 Jasmina Rods Not Reportable 12/16/16 15:30 Platelet Estimate Consistent w auto 12/16/16 15:30 Clumped Platelets Not Reportable 12/16/16 15:30 Plt Clumps, EDTA Not Reportable 12/16/16 15:30 Large Platelets Not Reportable 12/16/16 15:30 Giant Platelets Not Reportable 12/16/16 15:30 Platelet Satelliting Not Reportable 12/16/16 15:30 Plt Morphology Comment Not Reportable 12/16/16 15:30 RBC Morphology Not Reportable 12/16/16 15:30 Dimorphic RBCs Not Reportable 12/16/16 15:30 Polychromasia Few 12/16/16 15:30 Hypochromasia 2+ 12/16/16 15:30 Poikilocytosis Not Reportable 12/16/16 15:30 Anisocytosis 1+ 12/16/16 15:30 Microcytosis Not Reportable 12/16/16 15:30 Macrocytosis Not Reportable 12/16/16 15:30 Spherocytes Not Reportable 12/16/16 15:30 Pappenheimer Bodies Not Reportable 12/16/16 15:30 Sickle Cells Not Reportable 12/16/16 15:30 Target Cells Not Reportable 12/16/16 15:30 Tear Drop Cells Not Reportable 12/16/16 15:30 Ovalocytes Not Reportable 12/16/16 15:30 Stomatocytes Rare 12/03/16 04:00 Helmet Cells Not Reportable 12/16/16 15:30 Monet-Rutland Bodies Not Reportable 12/16/16 15:30 [place] Rings Not Reportable 12/16/16 15:30 Chuck Cells Not Reportable 12/16/16 15:30 Bite Cells Not Reportable 12/16/16 15:30 Crenated Cell Not Reportable 12/16/16 15:30 Elliptocytes Not Reportable 12/16/16 15:30 Acanthocytes (Spur) Not Reportable 12/16/16 15:30 Rouleaux Not Reportable 12/16/16 15:30 Hemoglobin C Crystals Not Reportable 12/16/16 15:30 Schistocytes Not Reportable 12/16/16 15:30 Malaria parasites Not Reportable 12/16/16 15:30 ESR > 140.0 mm/Hr (0-20) 09/08/16 11:48 Jun Bodies Not Reportable 12/16/16 15:30 Hem Pathologist Commnt No 12/16/16 15:30 PT 16.8 Sec. (12.2-14.9) H 11/17/16 03:20 INR 1.37 (0.87-1.13) H 11/17/16 03:20 APTT 33.0 Sec. (24.2-36.6) 10/09/16 03:45 Thrombin Time 16.8 Sec. (15.1-19.6) 09/03/16 00:10 Fibrinogen 750 mg/dl (211-480) H 09/08/16 11:48 Lupus Anticoagulant see below 09/12/16 09:59 LA PTT Baseline See scanned report 09/12/16 09:59 dRVVT Confirm Interp Positive (Negative) H 09/12/16 09:59 dRVVT Screen 50:50 See scanned report 09/12/16 09:59 dRVVT Mix Interpret See scanned report 09/12/16 09:59 Protein C Antigen 122 % (70-140) 09/08/16 15:35 Free Protein S 97 % normal (50-147) 09/08/16 15:35 Total Protein S 109 % (70-140) 09/08/16 15:35 Antithrombin III Ag 100 % (80-120) 09/08/16 15:35 Heparin Anti-Xa, Unfract Negative (Negative) 09/29/16 13:35 Factor V Activity 182 % (65-150) H 09/08/16 15:35 POC ABG pH 7.487 (7.35-7.45) H 11/25/16 14:12 ABG pH 7.450 pH Units (7.350-7.450) 12/05/16 Unknown POC ABG pCO2 39.0 (35-45) 11/25/16 14:12 ABG pCO2 29.6 mm Hg 12/05/16 Unknown POC ABG pO2 153 (80-105) H 11/25/16 14:12 ABG pO2 75.2 mm Hg (80.0-90.0) L 12/05/16 Unknown POC ABG HCO3 29.5 11/25/16 14:12 ABG HCO3 20.1 mmol/L (20.0-26.0) 12/05/16 Unknown POC ABG Total CO2 31 11/25/16 14:12 POC ABG O2 Sat 99 11/25/16 14:12 ABG O2 Saturation 96.8 % (95.0-99.0) 12/05/16 Unknown ABG O2 Content 9.9 (0.0-44) 12/05/16 Unknown POC ABG Base Excess 6 11/25/16 14:12 ABG Base Excess -3.4 mmol/L (-2.0-3.0) L 12/05/16 Unknown ABG Hemoglobin 7.4 gm/dl (12.0-16.0) L 12/05/16 Unknown ABG Carboxyhemoglobin 1.8 % (0.0-5.0) 12/05/16 Unknown ABG Methemoglobin 0.6 % (0.0-1.5) 12/05/16 Unknown Oxyhemoglobin 94.5 % (95.0-99.0) L 12/05/16 Unknown FiO2 30 % 12/05/16 Unknown Sodium 138 mmol/L (137-145) 12/18/16 05:00 Potassium 4.0 mmol/L (3.6-5.0) 12/18/16 05:00 Chloride 97.0 mmol/L (98-107) L 12/18/16 05:00 Carbon Dioxide 22 mmol/L (22-30) 12/18/16 05:00 Anion Gap 23 mmol/L 12/18/16 05:00 BUN 63 mg/dL (7-17) H 12/18/16 05:00 Creatinine 1.4 mg/dL (0.7-1.2) H 12/18/16 05:00 Estimated GFR 49 ml/min 12/18/16 05:00 BUN/Creatinine Ratio 45 % 12/18/16 05:00 Glucose 174 mg/dL (65-100) H 12/18/16 05:00 POC Glucose 201 (70-105) H 12/18/16 05:32 Osmolality 351 Mosm/kg 09/16/16 11:47 Lactic Acid 4.50 mmol/L (0.7-2.0) H* 09/28/16 07:25 Calcium 8.8 mg/dL (8.4-10.2) 12/18/16 05:00 Phosphorus 1.70 mg/dL (2.5-4.5) L D 12/18/16 05:00 Magnesium 2.10 mg/dL (1.7-2.3) 12/18/16 05:00 Total Bilirubin 0.90 mg/dL (0.1-1.2) 12/18/16 05:00 Direct Bilirubin 0.3 mg/dL (0-0.2) H 10/10/16 05:00 Indirect Bilirubin 0.1 mg/dL 10/10/16 05:00 AST 34 units/L (5-40) 12/18/16 05:00 ALT 42 units/L (7-56) 12/18/16 05:00 Alkaline Phosphatase 257 units/L (35-129) H 12/18/16 05:00 Ammonia 27.0 umol/L (25-60) 09/07/16 08:37 Lactate Dehydrogenase 196 units/L (91-180) H 11/11/16 06:59 Total Creatine Kinase 121 units/L (30-135) 09/29/16 20:12 CK-MB (CK-2) < 1.0 ng/mL (0.0-4.0) 09/29/16 20:12 CK-MB (CK-2) Rel Index 0.8 (0-4) 09/29/16 20:12 Troponin T 0.204 ng/mL (0.00-0.029) H* 09/29/16 20:12 C-Reactive Protein 19.30 mg/dL (0.00-1.30) H 12/05/16 05:00 Total Protein 5.9 g/dL (6.3-8.2) L 12/18/16 05:00 Albumin 1.8 g/dL (3.9-5) L 12/18/16 05:00 Albumin/Globulin Ratio 0.4 % 12/18/16 05:00 Prealbumin 0.180 g/L (0.200-0.400) L 11/06/16 06:25 Triglycerides 137 mg/dL (2-149) 09/29/16 20:12 Cholesterol 31 mg/dL (50-199) L 09/29/16 20:12 LDL Cholesterol Direct 4 mg/dL (50-130) L 09/29/16 20:12 HDL Cholesterol 3 mg/dL (40-59) L 09/29/16 20:12 Cholesterol/HDL Ratio 10.33 % 09/29/16 20:12 Angiotensin Convert Enz See scanned report 09/08/16 11:48 Renin 0.99 ng/mL/h (0.25-5.82) 10/07/16 10:56 Aldosterone <1 ng/dL () 10/07/16 10:56 Aldosterone/Renin Dir see below 10/07/16 10:56 Serotonin Release Assay See scanned report 09/29/16 13:35 TSH 1.010 mlU/mL (0.270-4.200) 09/07/16 08:37 HCG, Qual Negative (Negative) 09/03/16 00:10 Urine Color Yellow (Yellow) 11/05/16 13:09 Urine Turbidity Clear (Clear) 11/05/16 13:09 Urine pH 9.0 (5.0-7.0) H 11/05/16 13:09 Ur Specific [place] 1.011 (1.003-1.030) 11/05/16 13:09 Urine Protein 100 mg/dl mg/dL (Negative) 11/05/16 13:09 Urine Glucose (UA) Neg mg/dL (Negative) 11/05/16 13:09 Urine Ketones Neg mg/dL (Negative) 11/05/16 13:09 Urine Blood Neg (Negative) 11/05/16 13:09 Urine Nitrite Neg (Negative) 11/05/16 13:09 Urine Bilirubin Neg (Negative) 11/05/16 13:09 Urine Urobilinogen < 2.0 mg/dL (<2.0) 11/05/16 13:09 Ur Leukocyte Esterase Neg (Negative) 11/05/16 13:09 Urine WBC (Auto) 4.0 /HPF (0.0-6.0) 11/05/16 13:09 Urine RBC (Auto) 1.0 /HPF (0.0-6.0) 11/05/16 13:09 U Epithel Cells (Auto) 1.0 /HPF (0-13.0) 10/07/16 18:30 Urine Bacteria (Auto) 4+ /HPF (Negative) 11/05/16 13:09 Urine WBC Clumps 2+ /HPF 09/07/16 02:47 Hyaline Casts 4 /LPF 09/07/16 02:47 Urine Mucus Few /HPF 10/07/16 18:30 Urine Yeast (Budding) 3+ /HPF 10/07/16 18:30 Urine Eosinophils None seen (None Seen) 09/07/16 16:00 Urine Total Volume 950 11/12/16 10:18 Urine Creatinine 19.7 mg/dL (0.1-20.0) 11/12/16 10:18 Height (in) 65.0 inches 11/12/16 10:18 Weight (lb) 181.0 lbs 11/12/16 10:18 Creatinine Clearance 5 11/12/16 10:18 Urine Sodium 36 mEq/L 09/16/16 19:19 Urine Total Protein 16 mg/dL (5-11.8) H 09/16/16 19:19 Fluid Total Protein < 3.0 (15.0-45.0) L 11/10/16 14:20 Fluid LDH 123 11/10/16 14:20 Vancomycin Trough 2.3 ug/mL (5.0-20.0) L 09/21/16 13:00 Random Vancomycin 16.5 ug/mL (0-40.0) 11/28/16 09:45 Urine Opiates Screen Presumptive negative 09/03/16 15:11 Urine Methadone Screen Presumptive positive 09/03/16 15:11 Ur Barbiturates Screen Presumptive positive 09/03/16 15:11 Ur Phencyclidine Scrn Presumptive negative 09/03/16 15:11 Ur Amphetamines Screen Presumptive negative 09/03/16 15:11 U Benzodiazepines Scrn Presumptive negative 09/03/16 15:11 Urine Cocaine Screen Presumptive negative 09/03/16 15:11 U Marijuana (THC) Screen Presumptive positive 09/03/16 15:11 Drugs of Abuse Note Disclamer 09/03/16 15:11 Rheumatoid Factor 24 IU/ml (0-13) H 09/08/16 11:48 SAHIL Screen Negative (Negative) 09/07/16 09:20 Proteinase 3 (PR3) Ab <1.0 AI (<1.0) 09/07/16 09:20 Myeloperoxidase Ab <1.0 AI (<1.0) 09/07/16 09:20 Sjogren's Antibody <1.0 AI (<1.0) 09/08/16 15:35 Scl-70 Scleroderma Ab <1.0 AI (<1.0) 09/08/16 15:35 Centromere B Antibody <1.0 AI (<1.0) 09/08/16 12:02 Heparin-induced Plt Ab Negative (Negative) 09/29/16 13:35 UF Heparin High Dose 11 % Release 09/29/16 13:35 SUDHIR UFH Low Dose 0.1 6 % Release 09/29/16 13:35 SUDHIR UFH Low Dose 0.5 8 % Release 09/29/16 13:35 Cardiolipid IgG Ab <14 GPL (<=14) 09/12/16 09:59 Cardiolipid IgA Ab <11 APL (<=11) 09/12/16 09:59 Cardiolipid IgM Ab <12 MPL (<=12) 09/12/16 09:59 Complement C3 148 mg/dL (90-180) 09/07/16 09:20 Complement C4 58 mg/dL (16-47) H 09/07/16 09:20 RPR Nonreactive (Nonreactive) 09/08/16 11:48 Hepatitis A IgM Ab Non-reactive (NonReactive) 09/24/16 14:40 Hep Bs Antigen Non-reactive (Negative) 09/24/16 14:40 Hep B Core IgM Ab Non-reactive (NonReactive) 09/24/16 14:40 Hepatitis C Antibody Non-reactive (NonReactive) 09/24/16 14:40 HIV 1&2 Antibody Rapid Non react (Non React) 09/08/16 11:48 HIV P24 Antigen Non react (Non React) 09/08/16 11:48 Miscellaneous Test Flexitest 1 H 11/05/16 13:25 Blood Type A POSITIVE 10/27/17 16:25 Antibody Screen Negative 12/16/16 16:25 DELORIS Antibody Screen Negative 11/24/16 11:20 Crossmatch See Detail 12/16/16 16:25
[2016-12-18] MEDS ORDERED: NACL 0.9% 1000 ML 1,000 ML IV ONE (13:00)
[2016-12-18] MEDS ORDERED: CORDARONE 900 MG in D5W 482 ML IV SCH (13:30)
--- NOTE | 2016-12-18 14:18 | Progress Note ---
Assessment and Plan Acute Hypoxemic Respiratory Failure (now with exacerbation and back on MVS) Hypertension (unable to receive p.o. 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 here with A-fib RVR and hypotension in setting of recent increased GI losses of fluids) - Bolus 500mls IVNS and then run at 250/hr to complete a total of 1 liter cumulatively - re-evaluate thereafter - Amiodarone drip if RVR is persistent post bolus - repeat CBC in am re: Hb level and leucocytosis - continue prn vasopressin if MAP falls < 60mmHg - prn CRP & lactate levels if clinically indicated (Follow WBC also) - keep on with daily PSV trials and / or T-piece as tolerated (repeat trial each shift if failed earlier shift)(held today) - continue TPN administration (continue TPN; NPO except for meds) - continue scopolamine for secretion control - continue to wean FiO2 for sats > 94% - continue bronchodilators and pulmonary toilet - VAP bundle addressed - continue prn IV metorolol - continue metoprolol and amlodipine (hold for hypotension) - continue HD/UF per nephrology (Teu/Thurs/Sat) - continue to follow electrolytes and correct as necessary - continue GI & VTE prophylaxis - Continue flu & pneumovax per protocol ... 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 Subjective Date of service: 12/18/16 Principal diagnosis: Acute resp failure on MVS; S/P Acute CVA; Acute Encephalopathy; JUANITA Interval history: Patient is seen today for: Acute resp failure on MVS; S/P Acute CVA; Acute Encephalopathy; JUANITA Seen and examined at bedside; 24hour events reviewed; nursing and respiratory care staff consulted; no adverse overnight events reported to me; has been in A- fib with RVR into the 140's this am; s/p dialysis yesterday and 1 liter pulled; AMS persistent; No emesis; no high grade fevers Objective Vital Signs - 12hr 12/18/16 12/18/16 12/18/16 02:15 02:30 02:45 Temperature Pulse Rate 114 H 123 H 122 H Pulse Rate [ 82 84 Anterior Bilateral Throughout] Pulse Rate [ From Monitor] Respiratory 18 24 22 Rate Respiratory 25 H 25 H Rate [Anterior Bilateral Throughout] Blood Pressure 110/79 113/79 118/82 O2 Sat by Pulse 100 99 100 Oximetry O2 Sat by Pulse Oximetry [ Assessment] 12/18/16 12/18/16 12/18/16 03:00 03:15 03:30 Temperature Pulse Rate 119 H 131 H 125 H Pulse Rate [ Anterior Bilateral Throughout] Pulse Rate [ From Monitor] Respiratory 22 22 25 H Rate Respiratory Rate [Anterior Bilateral Throughout] Blood Pressure 104/72 114/72 109/79 O2 Sat by Pulse 100 97 98 Oximetry O2 Sat by Pulse Oximetry [ Assessment] 12/18/16 12/18/16 12/18/16 03:33 03:45 04:00 Temperature 98.8 F Pulse Rate 131 H 123 H Pulse Rate [ Anterior Bilateral Throughout] Pulse Rate [ 128 H From Monitor] Respiratory 23 25 H Rate Respiratory Rate [Anterior Bilateral Throughout] Blood Pressure 120/73 119/78 O2 Sat by Pulse 100 98 Oximetry O2 Sat by Pulse Oximetry [ Assessment] 12/18/16 12/18/16 12/18/16 04:15 04:27 04:30 Temperature Pulse Rate 132 H 127 H Pulse Rate [ Anterior Bilateral Throughout] Pulse Rate [ From Monitor] Respiratory 28 H 25 H Rate Respiratory Rate [Anterior Bilateral Throughout] Blood Pressure 116/80 115/70 O2 Sat by Pulse 91 96 Oximetry O2 Sat by Pulse 96 Oximetry [ Assessment] 12/18/16 12/18/16 12/18/16 04:45 05:00 05:15 Temperature Pulse Rate 129 H 133 H 135 H Pulse Rate [ Anterior Bilateral Throughout] Pulse Rate [ From Monitor] Respiratory 25 H 26 H 24 Rate Respiratory Rate [Anterior Bilateral Throughout] Blood Pressure 115/77 113/84 107/70 O2 Sat by Pulse 97 96 96 Oximetry O2 Sat by Pulse Oximetry [ Assessment] 12/18/16 12/18/16 12/18/16 05:30 05:45 05:50 Temperature Pulse Rate 133 H 133 H 128 H Pulse Rate [ Anterior Bilateral Throughout] Pulse Rate [ From Monitor] Respiratory 24 22 Rate Respiratory Rate [Anterior Bilateral Throughout] Blood Pressure 103/78 111/75 111/75 O2 Sat by Pulse 98 97 Oximetry O2 Sat by Pulse Oximetry [ Assessment] 12/18/16 12/18/16 12/18/16 05:51 06:00 06:16 Temperature Pulse Rate 132 H 128 H 148 H Pulse Rate [ Anterior Bilateral Throughout] Pulse Rate [ From Monitor] Respiratory 23 32 H Rate Respiratory Rate [Anterior Bilateral Throughout] Blood Pressure 111/75 119/77 138/91 O2 Sat by Pulse 97 95 Oximetry O2 Sat by Pulse Oximetry [ Assessment] 12/18/16 12/18/16 12/18/16 06:30 06:45 07:00 Temperature Pulse Rate 146 H 141 H 148 H Pulse Rate [ Anterior Bilateral Throughout] Pulse Rate [ From Monitor] Respiratory 20 32 H 29 H Rate Respiratory Rate [Anterior Bilateral Throughout] Blood Pressure 138/91 105/54 109/61 O2 Sat by Pulse 93 93 95 Oximetry O2 Sat by Pulse Oximetry [ Assessment] 12/18/16 12/18/16 12/18/16 07:15 07:30 07:45 Temperature Pulse Rate 135 H 133 H 148 H Pulse Rate [ Anterior Bilateral Throughout] Pulse Rate [ From Monitor] Respiratory 21 28 H 28 H Rate Respiratory Rate [Anterior Bilateral Throughout] Blood Pressure 98/65 106/64 100/61 O2 Sat by Pulse 94 95 96 Oximetry O2 Sat by Pulse Oximetry [ Assessment] 12/18/16 12/18/16 12/18/16 08:00 08:10 08:15 Temperature 98.7 F Pulse Rate 149 H 148 H Pulse Rate [ Anterior Bilateral Throughout] Pulse Rate [ 144 H From Monitor] Respiratory 28 H 23 27 H Rate Respiratory Rate [Anterior Bilateral Throughout] Blood Pressure 110/61 100/61 O2 Sat by Pulse 96 96 Oximetry O2 Sat by Pulse Oximetry [ Assessment] 12/18/16 12/18/16 12/18/16 08:30 08:45 09:00 Temperature Pulse Rate 145 H 159 H 137 H Pulse Rate [ Anterior Bilateral Throughout] Pulse Rate [ From Monitor] Respiratory 29 H 15 29 H Rate Respiratory Rate [Anterior Bilateral Throughout] Blood Pressure 106/69 99/63 98/65 O2 Sat by Pulse 97 97 98 Oximetry O2 Sat by Pulse Oximetry [ Assessment] 12/18/16 12/18/16 12/18/16 09:15 09:17 09:30 Temperature Pulse Rate 141 H 147 H 145 H Pulse Rate [ Anterior Bilateral Throughout] Pulse Rate [ From Monitor] Respiratory 29 H 35 H Rate Respiratory Rate [Anterior Bilateral Throughout] Blood Pressure 100/72 100/72 106/76 O2 Sat by Pulse 99 98 94 Oximetry O2 Sat by Pulse Oximetry [ Assessment] 12/18/16 12/18/16 12/18/16 09:37 09:45 10:00 Temperature Pulse Rate 131 H 147 H Pulse Rate [ Anterior Bilateral Throughout] Pulse Rate [ From Monitor] Respiratory 31 H 29 H Rate Respiratory Rate [Anterior Bilateral Throughout] Blood Pressure 101/67 97/76 O2 Sat by Pulse 97 97 Oximetry O2 Sat by Pulse 100 Oximetry [ Assessment] 12/18/16 12/18/16 12/18/16 10:16 10:30 10:45 Temperature Pulse Rate 147 H 150 H 152 H Pulse Rate [ Anterior Bilateral Throughout] Pulse Rate [ From Monitor] Respiratory 27 H 27 H 23 Rate Respiratory Rate [Anterior Bilateral Throughout] Blood Pressure 95/66 99/54 85/57 O2 Sat by Pulse 98 98 98 Oximetry O2 Sat by Pulse Oximetry [ Assessment] 12/18/16 12/18/16 12/18/16 11:00 11:05 11:16 Temperature Pulse Rate 150 H 158 H 153 H Pulse Rate [ Anterior Bilateral Throughout] Pulse Rate [ From Monitor] Respiratory 27 H 19 Rate Respiratory Rate [Anterior Bilateral Throughout] Blood Pressure 91/60 89/51 O2 Sat by Pulse 98 98 Oximetry O2 Sat by Pulse Oximetry [ Assessment] 12/18/16 12/18/16 12/18/16 11:20 11:30 11:41 Temperature 98.8 F Pulse Rate 152 H Pulse Rate [ Anterior Bilateral Throughout] Pulse Rate [ 101 H From Monitor] Respiratory 22 30 H Rate Respiratory Rate [Anterior Bilateral Throughout] Blood Pressure 90/56 O2 Sat by Pulse 98 93 Oximetry O2 Sat by Pulse Oximetry [ Assessment] 12/18/16 12/18/16 12/18/16 11:44 11:45 12:00 Temperature Pulse Rate 145 H 134 H 130 H Pulse Rate [ Anterior Bilateral Throughout] Pulse Rate [ From Monitor] Respiratory 19 23 Rate Respiratory Rate [Anterior Bilateral Throughout] Blood Pressure 84/51 84/51 85/57 O2 Sat by Pulse 100 100 100 Oximetry O2 Sat by Pulse Oximetry [ Assessment] 12/18/16 12/18/16 12/18/16 12:14 12:15 12:30 Temperature Pulse Rate 104 H 105 H 109 H Pulse Rate [ Anterior Bilateral Throughout] Pulse Rate [ From Monitor] Respiratory 25 H 18 Rate Respiratory Rate [Anterior Bilateral Throughout] Blood Pressure 85/57 106/67 123/76 O2 Sat by Pulse 100 100 Oximetry O2 Sat by Pulse Oximetry [ Assessment] 12/18/16 12/18/16 12/18/16 12:45 13:00 14:00 Temperature Pulse Rate 102 H 101 H 102 H Pulse Rate [ Anterior Bilateral Throughout] Pulse Rate [ From Monitor] Respiratory 19 24 Rate Respiratory Rate [Anterior Bilateral Throughout] Blood Pressure 121/79 123/74 113/71 O2 Sat by Pulse 99 99 Oximetry O2 Sat by Pulse Oximetry [ Assessment] Constitutional: appears uncomfortable, other (not tracking) Eyes: non-icteric, other (tracheostomy tube in midline of neck) ENT: oropharynx moist, oropharyngeal exudate pre Neck: supple, no lymphadenopathy, no JVD, other (no thyromegaly) Effort: mildly labored Ascultation: Bilateral: rhonchi (and referred upper airway sounds) Percussion: Bilateral: not dull Cardiovascular: regular rate and rhythm, other (no rubs / murmurs) Gastrointestinal: hypoactive bowel sounds, soft, non-tender, non-distended, other (RLQ & LUQ stomas with colostomy bags) Integumentary: other (no rash; no cellulitis; poor turgor) Extremities: no cyanosis, pulses normal, no ischemia or petechiae, edema (1+ bilaterally) Neurologic: pupils equal and round, unable to assess, other (encephalopathic) Psychiatric: other (unable to assess) CBC and BMP: 12/17/16 05:00 12/18/16 05:00 ABG, PT/INR, D-dimer: ABG POC ABG pH 7.487 (7.35-7.45) H 11/25/16 14:12 ABG pH 7.450 pH Units (7.350-7.450) 12/05/16 Unknown POC ABG pCO2 39.0 (35-45) 11/25/16 14:12 ABG pCO2 29.6 mm Hg 12/05/16 Unknown POC ABG pO2 153 (80-105) H 11/25/16 14:12 ABG pO2 75.2 mm Hg (80.0-90.0) L 12/05/16 Unknown POC ABG HCO3 29.5 11/25/16 14:12 POC ABG Total CO2 31 11/25/16 14:12 POC ABG O2 Sat 99 11/25/16 14:12 ABG O2 Saturation 96.8 % (95.0-99.0) 12/05/16 Unknown PT/INR, D-dimer PT 16.8 Sec. (12.2-14.9) H 11/17/16 03:20 INR 1.37 (0.87-1.13) H 11/17/16 03:20 Abnormal lab findings: Abnormal Labs 09/03/16 09/03/16 09/03/16 12:12 15:07 16:20 WBC RBC Hgb Hct MCV MCH MCHC RDW Plt Count Lymph % (Auto) [place] % (Auto) Lymph # [place] # Baso # Seg Neutrophils % Seg Neuts % (Manual) Lymphocytes % (Manual) Monocytes % (Manual) Eosinophils % (Manual) Basophils % (Manual) Nucleated RBC % Seg Neutrophils # Seg Neutrophils # Man Lymphocytes # (Manual) Monocytes # (Manual) Eosinophils # (Manual) PT INR Fibrinogen dRVVT Confirm Interp Factor V Activity POC ABG pH 7.452 H POC ABG pCO2 POC ABG pO2 ABG pO2 ABG HCO3 ABG Base Excess ABG Hemoglobin Oxyhemoglobin Sodium Potassium Chloride Carbon Dioxide BUN Creatinine Glucose POC Glucose 178 H Lactic Acid Calcium Phosphorus 2.20 L Magnesium 1.60 L Direct Bilirubin AST ALT Alkaline Phosphatase Lactate Dehydrogenase Troponin T C-Reactive Protein Total Protein Albumin Prealbumin Triglycerides Cholesterol LDL Cholesterol Direct HDL Cholesterol Urine pH Urine WBC (Auto) Urine Creatinine Urine Total Protein Fluid Total Protein Vancomycin Trough Rheumatoid Factor Complement C4 Miscellaneous Test Crossmatch 09/03/16 09/03/16 09/03/16 17:57 17:58 23:50 WBC RBC Hgb Hct MCV MCH MCHC RDW Plt Count Lymph % (Auto) [place] % (Auto) Lymph # [place] # Baso # Seg Neutrophils % Seg Neuts % (Manual) Lymphocytes % (Manual) Monocytes % (Manual) Eosinophils % (Manual) Basophils % (Manual) Nucleated RBC % Seg Neutrophils # Seg Neutrophils # Man Lymphocytes # (Manual) Monocytes # (Manual) Eosinophils # (Manual) PT INR Fibrinogen dRVVT Confirm Interp Factor V Activity POC ABG pH POC ABG pCO2 POC ABG pO2 ABG pO2 ABG HCO3 ABG Base Excess ABG Hemoglobin Oxyhemoglobin Sodium Potassium Chloride Carbon Dioxide BUN Creatinine Glucose POC Glucose 162 H 145 H Lactic Acid Calcium Phosphorus 2.30 L Magnesium Direct Bilirubin AST ALT Alkaline Phosphatase Lactate Dehydrogenase Troponin T C-Reactive Protein Total Protein Albumin Prealbumin Triglycerides Cholesterol LDL Cholesterol Direct HDL Cholesterol Urine pH Urine WBC (Auto) Urine Creatinine Urine Total Protein Fluid Total Protein Vancomycin Trough Rheumatoid Factor Complement C4 Miscellaneous Test Crossmatch 09/04/16 09/04/16 09/04/16 03:31 03:31 05:42 WBC RBC Hgb 9.7 L D Hct MCV 72 L MCH 23 L MCHC RDW 17.5 H Plt Count Lymph % (Auto) 11.1 L [place] % (Auto) Lymph # [place] # Baso # Seg Neutrophils % 84.3 H Seg Neuts % (Manual) Lymphocytes % (Manual) Monocytes % (Manual) Eosinophils % (Manual) Basophils % (Manual) Nucleated RBC % Seg Neutrophils # 8.9 H Seg Neutrophils # Man Lymphocytes # (Manual) Monocytes # (Manual) Eosinophils # (Manual) PT INR Fibrinogen dRVVT Confirm Interp Factor V Activity POC ABG pH POC ABG pCO2 POC ABG pO2 ABG pO2 ABG HCO3 ABG Base Excess ABG Hemoglobin Oxyhemoglobin Sodium 135 L Potassium 2.9 L* Chloride 97.2 L Carbon Dioxide 19 L BUN Creatinine 1.7 H Glucose 170 H POC Glucose 152 H Lactic Acid Calcium Phosphorus Magnesium Direct Bilirubin AST ALT Alkaline Phosphatase Lactate Dehydrogenase Troponin T C-Reactive Protein Total Protein Albumin Prealbumin Triglycerides 160 H Cholesterol LDL Cholesterol Direct HDL Cholesterol 31 L Urine pH Urine WBC (Auto) Urine Creatinine Urine Total Protein Fluid Total Protein Vancomycin Trough Rheumatoid Factor Complement C4 Miscellaneous Test Crossmatch 09/04/16 09/04/16 09/04/16 11:34 17:46 23:29 WBC RBC Hgb Hct MCV MCH MCHC RDW Plt Count Lymph % (Auto) [place] % (Auto) Lymph # [place] # Baso # Seg Neutrophils % Seg Neuts % (Manual) Lymphocytes % (Manual) Monocytes % (Manual) Eosinophils % (Manual) Basophils % (Manual) Nucleated RBC % Seg Neutrophils # Seg Neutrophils # Man Lymphocytes # (Manual) Monocytes # (Manual) Eosinophils # (Manual) PT INR Fibrinogen dRVVT Confirm Interp Factor V Activity POC ABG pH POC ABG pCO2 POC ABG pO2 ABG pO2 ABG HCO3 ABG Base Excess ABG Hemoglobin Oxyhemoglobin Sodium Potassium Chloride Carbon Dioxide BUN Creatinine Glucose POC Glucose 165 H 210 H 139 H Lactic Acid Calcium Phosphorus Magnesium Direct Bilirubin AST ALT Alkaline Phosphatase Lactate Dehydrogenase Troponin T C-Reactive Protein Total Protein Albumin Prealbumin Triglycerides Cholesterol LDL Cholesterol Direct HDL Cholesterol Urine pH Urine WBC (Auto) Urine Creatinine Urine Total Protein Fluid Total Protein Vancomycin Trough Rheumatoid Factor Complement C4 Miscellaneous Test Crossmatch 09/05/16 09/05/16 09/05/16 04:05 04:05 05:38 WBC RBC Hgb Hct MCV 76 L D MCH 23 L MCHC RDW 17.8 H Plt Count Lymph % (Auto) [place] % (Auto) Lymph # [place] # Baso # Seg Neutrophils % Seg Neuts % (Manual) Lymphocytes % (Manual) Monocytes % (Manual) Eosinophils % (Manual) Basophils % (Manual) Nucleated RBC % Seg Neutrophils # Seg Neutrophils # Man Lymphocytes # (Manual) Monocytes # (Manual) Eosinophils # (Manual) PT INR Fibrinogen dRVVT Confirm Interp Factor V Activity POC ABG pH POC ABG pCO2 POC ABG pO2 ABG pO2 ABG HCO3 ABG Base Excess ABG Hemoglobin Oxyhemoglobin Sodium 134 L Potassium Chloride Carbon Dioxide 18 L BUN Creatinine 1.8 H Glucose 192 H POC Glucose 175 H Lactic Acid Calcium Phosphorus Magnesium Direct Bilirubin AST ALT Alkaline Phosphatase Lactate Dehydrogenase Troponin T C-Reactive Protein Total Protein Albumin Prealbumin Triglycerides Cholesterol LDL Cholesterol Direct HDL Cholesterol Urine pH Urine WBC (Auto) Urine Creatinine Urine Total Protein Fluid Total Protein Vancomycin Trough Rheumatoid Factor Complement C4 Miscellaneous Test Crossmatch 09/05/16 09/05/16 09/05/16 11:38 17:48 23:22 WBC RBC Hgb Hct MCV MCH MCHC RDW Plt Count Lymph % (Auto) [place] % (Auto) Lymph # [place] # Baso # Seg Neutrophils % Seg Neuts % (Manual) Lymphocytes % (Manual) Monocytes % (Manual) Eosinophils % (Manual) Basophils % (Manual) Nucleated RBC % Seg Neutrophils # Seg Neutrophils # Man Lymphocytes # (Manual) Monocytes # (Manual) Eosinophils # (Manual) PT INR Fibrinogen dRVVT Confirm Interp Factor V Activity POC ABG pH POC ABG pCO2 POC ABG pO2 ABG pO2 ABG HCO3 ABG Base Excess ABG Hemoglobin Oxyhemoglobin Sodium Potassium Chloride Carbon Dioxide BUN Creatinine Glucose POC Glucose 164 H 186 H 195 H Lactic Acid Calcium Phosphorus Magnesium Direct Bilirubin AST ALT Alkaline Phosphatase Lactate Dehydrogenase Troponin T C-Reactive Protein Total Protein Albumin Prealbumin Triglycerides Cholesterol LDL Cholesterol Direct HDL Cholesterol Urine pH Urine WBC (Auto) Urine Creatinine Urine Total Protein Fluid Total Protein Vancomycin Trough Rheumatoid Factor Complement C4 Miscellaneous Test Crossmatch 09/06/16 09/06/16 09/06/16 04:12 05:59 07:32 WBC RBC Hgb Hct MCV MCH MCHC RDW Plt Count Lymph % (Auto) [place] % (Auto) Lymph # [place] # Baso # Seg Neutrophils % Seg Neuts % (Manual) Lymphocytes % (Manual) Monocytes % (Manual) Eosinophils % (Manual) Basophils % (Manual) Nucleated RBC % Seg Neutrophils # Seg Neutrophils # Man Lymphocytes # (Manual) Monocytes # (Manual) Eosinophils # (Manual) PT INR Fibrinogen dRVVT Confirm Interp Factor V Activity POC ABG pH 7.514 H POC ABG pCO2 29.1 L POC ABG pO2 72 L ABG pO2 ABG HCO3 ABG Base Excess ABG Hemoglobin Oxyhemoglobin Sodium 133 L Potassium 3.4 L Chloride 94.9 L Carbon Dioxide 19 L BUN 30 H Creatinine 2.1 H Glucose 139 H POC Glucose 146 H Lactic Acid Calcium Phosphorus Magnesium Direct Bilirubin AST ALT Alkaline Phosphatase Lactate Dehydrogenase Troponin T C-Reactive Protein Total Protein Albumin Prealbumin Triglycerides Cholesterol LDL Cholesterol Direct HDL Cholesterol Urine pH Urine WBC (Auto) Urine Creatinine Urine Total Protein Fluid Total Protein Vancomycin Trough Rheumatoid Factor Complement C4 Miscellaneous Test Crossmatch 09/06/16 09/06/16 09/06/16 11:57 17:58 19:02 WBC RBC Hgb Hct MCV MCH MCHC RDW Plt Count Lymph % (Auto) [place] % (Auto) Lymph # [place] # Baso # Seg Neutrophils % Seg Neuts % (Manual) Lymphocytes % (Manual) Monocytes % (Manual) Eosinophils % (Manual) Basophils % (Manual) Nucleated RBC % Seg Neutrophils # Seg Neutrophils # Man Lymphocytes # (Manual) Monocytes # (Manual) Eosinophils # (Manual) PT INR Fibrinogen dRVVT Confirm Interp Factor V Activity POC ABG pH 7.465 H POC ABG pCO2 32.0 L POC ABG pO2 ABG pO2 ABG HCO3 ABG Base Excess ABG Hemoglobin Oxyhemoglobin Sodium Potassium Chloride Carbon Dioxide BUN Creatinine Glucose POC Glucose 165 H 160 H Lactic Acid Calcium Phosphorus Magnesium Direct Bilirubin AST ALT Alkaline Phosphatase Lactate Dehydrogenase Troponin T C-Reactive Protein Total Protein Albumin Prealbumin Triglycerides Cholesterol LDL Cholesterol Direct HDL Cholesterol Urine pH Urine WBC (Auto) Urine Creatinine Urine Total Protein Fluid Total Protein Vancomycin Trough Rheumatoid Factor Complement C4 Miscellaneous Test Crossmatch 09/06/16 09/07/16 09/07/16 23:45 02:47 02:47 WBC RBC Hgb Hct MCV MCH MCHC RDW Plt Count Lymph % (Auto) [place] % (Auto) Lymph # [place] # Baso # Seg Neutrophils % Seg Neuts % (Manual) Lymphocytes % (Manual) Monocytes % (Manual) Eosinophils % (Manual) Basophils % (Manual) Nucleated RBC % Seg Neutrophils # Seg Neutrophils # Man Lymphocytes # (Manual) Monocytes # (Manual) Eosinophils # (Manual) PT INR Fibrinogen dRVVT Confirm Interp Factor V Activity POC ABG pH POC ABG pCO2 POC ABG pO2 ABG pO2 ABG HCO3 ABG Base Excess ABG Hemoglobin Oxyhemoglobin Sodium Potassium Chloride Carbon Dioxide BUN Creatinine Glucose POC Glucose 204 H Lactic Acid Calcium Phosphorus Magnesium Direct Bilirubin AST ALT Alkaline Phosphatase Lactate Dehydrogenase Troponin T C-Reactive Protein Total Protein Albumin Prealbumin Triglycerides Cholesterol LDL Cholesterol Direct HDL Cholesterol Urine pH Urine WBC (Auto) 68.0 H Urine Creatinine 106.1 H Urine Total Protein Fluid Total Protein Vancomycin Trough Rheumatoid Factor Complement C4 Miscellaneous Test Crossmatch 09/07/16 09/07/16 09/07/16 04:50 06:19 06:39 WBC RBC Hgb Hct MCV MCH MCHC RDW Plt Count Lymph % (Auto) [place] % (Auto) Lymph # [place] # [place] # Seg Neutrophils % Seg Neuts % (Manual) Lymphocytes % (Manual) Monocytes % (Manual) Eosinophils % (Manual) Basophils % (Manual) Nucleated RBC % Seg Neutrophils # Seg Neutrophils # Man Lymphocytes # (Manual) Monocytes # (Manual) Eosinophils # (Manual) PT INR Fibrinogen dRVVT Confirm Interp Factor V Activity POC ABG pH 7.457 H POC ABG pCO2 32.1 L POC ABG pO2 76 L ABG pO2 ABG HCO3 ABG Base Excess ABG Hemoglobin Oxyhemoglobin Sodium 132 L Potassium Chloride 94.7 L Carbon Dioxide BUN 53 H Creatinine 2.9 H Glucose 151 H POC Glucose 149 H Lactic Acid Calcium Phosphorus Magnesium Direct Bilirubin AST ALT Alkaline Phosphatase Lactate Dehydrogenase Troponin T C-Reactive Protein Total Protein Albumin Prealbumin Triglycerides Cholesterol LDL Cholesterol Direct HDL Cholesterol Urine pH Urine WBC (Auto) Urine Creatinine Urine Total Protein Fluid Total Protein Vancomycin Trough Rheumatoid Factor Complement C4 Miscellaneous Test Crossmatch 09/07/16 09/07/16 09/07/16 09:20 11:43 11:43 WBC 19.4 H RBC Hgb 8.3 L Hct 26.4 L D MCV 72 L D MCH 22 L MCHC RDW 17.9 H Plt Count Lymph % (Auto) 8.5 L [place] % (Auto) Lymph # [place] # 1.0 H Baso # Seg Neutrophils % 85.8 H Seg Neuts % (Manual) Lymphocytes % (Manual) Monocytes % (Manual) Eosinophils % (Manual) Basophils % (Manual) Nucleated RBC % Seg Neutrophils # 16.6 H Seg Neutrophils # Man Lymphocytes # (Manual) Monocytes # (Manual) Eosinophils # (Manual) PT INR Fibrinogen dRVVT Confirm Interp Factor V Activity POC ABG pH POC ABG pCO2 POC ABG pO2 ABG pO2 ABG HCO3 ABG Base Excess ABG Hemoglobin Oxyhemoglobin Sodium 134 L Potassium Chloride 97.2 L Carbon Dioxide 20 L BUN 58 H Creatinine 2.9 H Glucose 147 H POC Glucose Lactic Acid Calcium Phosphorus 2.40 L Magnesium 2.40 H Direct Bilirubin AST ALT Alkaline Phosphatase Lactate Dehydrogenase Troponin T C-Reactive Protein Total Protein 5.8 L Albumin 2.2 L Prealbumin Triglycerides Cholesterol LDL Cholesterol Direct HDL Cholesterol Urine pH Urine WBC (Auto) Urine Creatinine Urine Total Protein Fluid Total Protein Vancomycin Trough Rheumatoid Factor Complement C4 58 H Miscellaneous Test Crossmatch 09/07/16 09/07/16 09/07/16 11:50 16:00 17:31 WBC RBC Hgb Hct MCV MCH MCHC RDW Plt Count Lymph % (Auto) [place] % (Auto) Lymph # [place] # Baso # Seg Neutrophils % Seg Neuts % (Manual) Lymphocytes % (Manual) Monocytes % (Manual) Eosinophils % (Manual) Basophils % (Manual) Nucleated RBC % Seg Neutrophils # Seg Neutrophils # Man Lymphocytes # (Manual) Monocytes # (Manual) Eosinophils # (Manual) PT INR Fibrinogen dRVVT Confirm Interp Factor V Activity POC ABG pH POC ABG pCO2 POC ABG pO2 158 H ABG pO2 ABG HCO3 ABG Base Excess ABG Hemoglobin Oxyhemoglobin Sodium Potassium Chloride Carbon Dioxide BUN Creatinine Glucose POC Glucose 175 H Lactic Acid Calcium Phosphorus Magnesium Direct Bilirubin AST ALT Alkaline Phosphatase Lactate Dehydrogenase Troponin T C-Reactive Protein Total Protein Albumin Prealbumin Triglycerides Cholesterol LDL Cholesterol Direct HDL Cholesterol Urine pH Urine WBC (Auto) Urine Creatinine 66.3 H Urine Total Protein Fluid Total Protein Vancomycin Trough Rheumatoid Factor Complement C4 Miscellaneous Test Crossmatch 09/07/16 09/08/16 09/08/16 23:50 05:46 06:18 WBC 17.8 H RBC 3.58 L Hgb 8.1 L Hct 25.5 L MCV 71 L MCH 23 L MCHC RDW 18.4 H Plt Count Lymph % (Auto) [place] % (Auto) Lymph # [place] # Baso # Seg Neutrophils % Seg Neuts % (Manual) 92.0 H Lymphocytes % (Manual) 6.0 L Monocytes % (Manual) Eosinophils % (Manual) Basophils % (Manual) Nucleated RBC % Seg Neutrophils # Seg Neutrophils # Man 16.4 H Lymphocytes # (Manual) 1.1 L Monocytes # (Manual) Eosinophils # (Manual) PT INR Fibrinogen dRVVT Confirm Interp Factor V Activity POC ABG pH POC ABG pCO2 34.3 L POC ABG pO2 71 L ABG pO2 ABG HCO3 ABG Base Excess ABG Hemoglobin Oxyhemoglobin Sodium Potassium Chloride Carbon Dioxide BUN Creatinine Glucose POC Glucose 216 H Lactic Acid Calcium Phosphorus Magnesium Direct Bilirubin AST ALT Alkaline Phosphatase Lactate Dehydrogenase Troponin T C-Reactive Protein Total Protein Albumin Prealbumin Triglycerides Cholesterol LDL Cholesterol Direct HDL Cholesterol Urine pH Urine WBC (Auto) Urine Creatinine Urine Total Protein Fluid Total Protein Vancomycin Trough Rheumatoid Factor Complement C4 Miscellaneous Test Crossmatch 09/08/16 09/08/16 09/08/16 06:18 06:51 10:55 WBC RBC Hgb Hct MCV MCH MCHC RDW Plt Count Lymph % (Auto) [place] % (Auto) Lymph # [place] # Baso # Seg Neutrophils % Seg Neuts % (Manual) Lymphocytes % (Manual) Monocytes % (Manual) Eosinophils % (Manual) Basophils % (Manual) Nucleated RBC % Seg Neutrophils # Seg Neutrophils # Man Lymphocytes # (Manual) Monocytes # (Manual) Eosinophils # (Manual) PT INR Fibrinogen dRVVT Confirm Interp Factor V Activity POC ABG pH POC ABG pCO2 POC ABG pO2 ABG pO2 ABG HCO3 ABG Base Excess ABG Hemoglobin Oxyhemoglobin Sodium 133 L Potassium Chloride 96.9 L Carbon Dioxide 20 L BUN 63 H Creatinine 2.7 H Glucose 195 H POC Glucose 204 H 169 H Lactic Acid Calcium Phosphorus Magnesium Direct Bilirubin AST ALT Alkaline Phosphatase Lactate Dehydrogenase Troponin T C-Reactive Protein Total Protein Albumin Prealbumin Triglycerides Cholesterol LDL Cholesterol Direct HDL Cholesterol Urine pH Urine WBC (Auto) Urine Creatinine Urine Total Protein Fluid Total Protein Vancomycin Trough Rheumatoid Factor Complement C4 Miscellaneous Test Crossmatch 09/08/16 09/08/16 09/08/16 11:48 11:48 11:48 WBC RBC Hgb Hct MCV MCH MCHC RDW Plt Count Lymph % (Auto) [place] % (Auto) Lymph # [place] # Baso # Seg Neutrophils % Seg Neuts % (Manual) Lymphocytes % (Manual) Monocytes % (Manual) Eosinophils % (Manual) Basophils % (Manual) Nucleated RBC % Seg Neutrophils # Seg Neutrophils # Man Lymphocytes # (Manual) Monocytes # (Manual) Eosinophils # (Manual) PT INR Fibrinogen 750 H dRVVT Confirm Interp Factor V Activity POC ABG pH POC ABG pCO2 POC ABG pO2 ABG pO2 ABG HCO3 ABG Base Excess ABG Hemoglobin Oxyhemoglobin Sodium Potassium Chloride Carbon Dioxide BUN Creatinine Glucose POC Glucose Lactic Acid Calcium Phosphorus Magnesium Direct Bilirubin AST ALT Alkaline Phosphatase Lactate Dehydrogenase Troponin T C-Reactive Protein 15.70 H Total Protein Albumin Prealbumin Triglycerides Cholesterol LDL Cholesterol Direct HDL Cholesterol Urine pH Urine WBC (Auto) Urine Creatinine Urine Total Protein Fluid Total Protein Vancomycin Trough Rheumatoid Factor 24 H Complement C4 Miscellaneous Test Crossmatch 09/08/16 09/08/16 09/09/16 15:35 18:25 00:24 WBC RBC Hgb Hct MCV MCH MCHC RDW Plt Count Lymph % (Auto) [place] % (Auto) Lymph # [place] # Baso # Seg Neutrophils % Seg Neuts % (Manual) Lymphocytes % (Manual) Monocytes % (Manual) Eosinophils % (Manual) Basophils % (Manual) Nucleated RBC % Seg Neutrophils # Seg Neutrophils # Man Lymphocytes # (Manual) Monocytes # (Manual) Eosinophils # (Manual) PT INR Fibrinogen dRVVT Confirm Interp Factor V Activity 182 H POC ABG pH POC ABG pCO2 POC ABG pO2 ABG pO2 ABG HCO3 ABG Base Excess ABG Hemoglobin Oxyhemoglobin Sodium Potassium Chloride Carbon Dioxide BUN Creatinine Glucose POC Glucose 184 H 216 H Lactic Acid Calcium Phosphorus Magnesium Direct Bilirubin AST ALT Alkaline Phosphatase Lactate Dehydrogenase Troponin T C-Reactive Protein Total Protein Albumin Prealbumin Triglycerides Cholesterol LDL Cholesterol Direct HDL Cholesterol Urine pH Urine WBC (Auto) Urine Creatinine Urine Total Protein Fluid Total Protein Vancomycin Trough Rheumatoid Factor Complement C4 Miscellaneous Test Crossmatch 09/09/16 09/09/16 09/09/16 03:00 03:00 04:04 WBC 27.9 H RBC Hgb 8.7 L Hct 28.1 L MCV 72 L MCH 22 L MCHC RDW 18.4 H Plt Count 485 H Lymph % (Auto) [place] % (Auto) Lymph # [place] # Baso # Seg Neutrophils % Seg Neuts % (Manual) 77.0 H Lymphocytes % (Manual) 9.0 L Monocytes % (Manual) Eosinophils % (Manual) Basophils % (Manual) Nucleated RBC % Seg Neutrophils # Seg Neutrophils # Man 21.5 H Lymphocytes # (Manual) Monocytes # (Manual) 2.0 H Eosinophils # (Manual) PT INR Fibrinogen dRVVT Confirm Interp Factor V Activity POC ABG pH POC ABG pCO2 POC ABG pO2 121 H ABG pO2 ABG HCO3 ABG Base Excess ABG Hemoglobin Oxyhemoglobin Sodium 135 L Potassium Chloride 96.3 L Carbon Dioxide 21 L BUN 83 H Creatinine 3.0 H Glucose 135 H POC Glucose Lactic Acid Calcium Phosphorus Magnesium Direct Bilirubin AST ALT Alkaline Phosphatase Lactate Dehydrogenase Troponin T C-Reactive Protein Total Protein Albumin Prealbumin Triglycerides Cholesterol LDL Cholesterol Direct HDL Cholesterol Urine pH Urine WBC (Auto) Urine Creatinine Urine Total Protein Fluid Total Protein Vancomycin Trough Rheumatoid Factor Complement C4 Miscellaneous Test Crossmatch 09/09/16 09/09/16 09/09/16 05:41 11:55 14:13 WBC RBC Hgb Hct MCV MCH MCHC RDW Plt Count Lymph % (Auto) [place] % (Auto) Lymph # [place] # Baso # Seg Neutrophils % Seg Neuts % (Manual) Lymphocytes % (Manual) Monocytes % (Manual) Eosinophils % (Manual) Basophils % (Manual) Nucleated RBC % Seg Neutrophils # Seg Neutrophils # Man Lymphocytes # (Manual) Monocytes # (Manual) Eosinophils # (Manual) PT INR Fibrinogen dRVVT Confirm Interp Factor V Activity POC ABG pH POC ABG pCO2 POC ABG pO2 ABG pO2 ABG HCO3 ABG Base Excess ABG Hemoglobin Oxyhemoglobin Sodium Potassium Chloride Carbon Dioxide BUN Creatinine Glucose POC Glucose 155 H 186 H Lactic Acid Calcium Phosphorus Magnesium Direct Bilirubin AST ALT Alkaline Phosphatase Lactate Dehydrogenase Troponin T C-Reactive Protein Total Protein Albumin Prealbumin Triglycerides Cholesterol LDL Cholesterol Direct HDL Cholesterol Urine pH Urine WBC (Auto) 25.0 H Urine Creatinine Urine Total Protein Fluid Total Protein Vancomycin Trough Rheumatoid Factor Complement C4 Miscellaneous Test Crossmatch 09/09/16 09/09/16 09/10/16 17:33 23:13 05:09 WBC RBC Hgb Hct MCV MCH MCHC RDW Plt Count Lymph % (Auto) [place] % (Auto) Lymph # [place] # Baso # Seg Neutrophils % Seg Neuts % (Manual) Lymphocytes % (Manual) Monocytes % (Manual) Eosinophils % (Manual) Basophils % (Manual) Nucleated RBC % Seg Neutrophils # Seg Neutrophils # Man Lymphocytes # (Manual) Monocytes # (Manual) Eosinophils # (Manual) PT INR Fibrinogen dRVVT Confirm Interp Factor V Activity POC ABG pH POC ABG pCO2 POC ABG pO2 74 L ABG pO2 ABG HCO3 ABG Base Excess ABG Hemoglobin Oxyhemoglobin Sodium Potassium Chloride Carbon Dioxide BUN Creatinine Glucose POC Glucose 211 H 215 H Lactic Acid Calcium Phosphorus Magnesium Direct Bilirubin AST ALT Alkaline Phosphatase Lactate Dehydrogenase Troponin T C-Reactive Protein Total Protein Albumin Prealbumin Triglycerides Cholesterol LDL Cholesterol Direct HDL Cholesterol Urine pH Urine WBC (Auto) Urine Creatinine Urine Total Protein Fluid Total Protein Vancomycin Trough Rheumatoid Factor Complement C4 Miscellaneous Test Crossmatch 09/10/16 09/10/16 09/10/16 05:17 05:17 11:31 WBC 15.8 H RBC 3.25 L Hgb 7.3 L Hct 22.9 L MCV 71 L MCH 23 L MCHC RDW 18.4 H Plt Count Lymph % (Auto) [place] % (Auto) Lymph # [place] # Baso # Seg Neutrophils % Seg Neuts % (Manual) 91.0 H Lymphocytes % (Manual) 4.0 L Monocytes % (Manual) Eosinophils % (Manual) Basophils % (Manual) Nucleated RBC % Seg Neutrophils # Seg Neutrophils # Man 14.4 H Lymphocytes # (Manual) 0.6 L Monocytes # (Manual) Eosinophils # (Manual) PT INR Fibrinogen dRVVT Confirm Interp Factor V Activity POC ABG pH POC ABG pCO2 POC ABG pO2 ABG pO2 ABG HCO3 ABG Base Excess ABG Hemoglobin Oxyhemoglobin Sodium Potassium Chloride Carbon Dioxide 21 L BUN 93 H Creatinine 2.9 H Glucose 146 H POC Glucose 188 H Lactic Acid Calcium 8.1 L Phosphorus Magnesium Direct Bilirubin AST ALT Alkaline Phosphatase Lactate Dehydrogenase Troponin T C-Reactive Protein Total Protein Albumin Prealbumin Triglycerides Cholesterol LDL Cholesterol Direct HDL Cholesterol Urine pH Urine WBC (Auto) Urine Creatinine Urine Total Protein Fluid Total Protein Vancomycin Trough Rheumatoid Factor Complement C4 Miscellaneous Test Crossmatch 09/10/16 09/10/16 09/10/16 13:17 17:20 23:32 WBC RBC Hgb Hct MCV MCH MCHC RDW Plt Count Lymph % (Auto) [place] % (Auto) Lymph # [place] # Baso # Seg Neutrophils % Seg Neuts % (Manual) Lymphocytes % (Manual) Monocytes % (Manual) Eosinophils % (Manual) Basophils % (Manual) Nucleated RBC % Seg Neutrophils # Seg Neutrophils # Man Lymphocytes # (Manual) Monocytes # (Manual) Eosinophils # (Manual) PT INR Fibrinogen dRVVT Confirm Interp Factor V Activity POC ABG pH POC ABG pCO2 POC ABG pO2 ABG pO2 ABG HCO3 ABG Base Excess ABG Hemoglobin Oxyhemoglobin Sodium Potassium Chloride Carbon Dioxide BUN Creatinine Glucose POC Glucose 199 H 186 H Lactic Acid Calcium Phosphorus Magnesium Direct Bilirubin AST ALT Alkaline Phosphatase Lactate Dehydrogenase Troponin T C-Reactive Protein Total Protein Albumin Prealbumin Triglycerides Cholesterol LDL Cholesterol Direct HDL Cholesterol Urine pH Urine WBC (Auto) Urine Creatinine Urine Total Protein Fluid Total Protein Vancomycin Trough Rheumatoid Factor Complement C4 Miscellaneous Test Crossmatch See Detail 09/11/16 09/11/16 09/11/16 05:10 05:10 05:17 WBC 28.4 H RBC Hgb 9.2 L Hct 29.3 L D MCV 73 L MCH 23 L MCHC RDW 18.9 H Plt Count 452 H Lymph % (Auto) [place] % (Auto) Lymph # [place] # Baso # Seg Neutrophils % Seg Neuts % (Manual) 89.5 H Lymphocytes % (Manual) 2.0 L Monocytes % (Manual) Eosinophils % (Manual) Basophils % (Manual) Nucleated RBC % Seg Neutrophils # Seg Neutrophils # Man 25.4 H Lymphocytes # (Manual) 0.6 L Monocytes # (Manual) 1.3 H Eosinophils # (Manual) PT INR Fibrinogen dRVVT Confirm Interp Factor V Activity POC ABG pH POC ABG pCO2 POC ABG pO2 ABG pO2 ABG HCO3 ABG Base Excess ABG Hemoglobin Oxyhemoglobin Sodium 136 L Potassium Chloride Carbon Dioxide 18 L BUN 107 H Creatinine 2.6 H Glucose 187 H POC Glucose 230 H Lactic Acid Calcium 8.3 L Phosphorus Magnesium Direct Bilirubin AST ALT Alkaline Phosphatase Lactate Dehydrogenase Troponin T C-Reactive Protein Total Protein Albumin Prealbumin Triglycerides Cholesterol LDL Cholesterol Direct HDL Cholesterol Urine pH Urine WBC (Auto) Urine Creatinine Urine Total Protein Fluid Total Protein Vancomycin Trough Rheumatoid Factor Complement C4 Miscellaneous Test Crossmatch 09/11/16 09/11/16 09/11/16 05:55 12:02 17:32 WBC RBC Hgb Hct MCV MCH MCHC RDW Plt Count Lymph % (Auto) [place] % (Auto) Lymph # [place] # Baso # Seg Neutrophils % Seg Neuts % (Manual) Lymphocytes % (Manual) Monocytes % (Manual) Eosinophils % (Manual) Basophils % (Manual) Nucleated RBC % Seg Neutrophils # Seg Neutrophils # Man Lymphocytes # (Manual) Monocytes # (Manual) Eosinophils # (Manual) PT INR Fibrinogen dRVVT Confirm Interp Factor V Activity POC ABG pH POC ABG pCO2 33.8 L POC ABG pO2 ABG pO2 ABG HCO3 ABG Base Excess ABG Hemoglobin Oxyhemoglobin Sodium Potassium Chloride Carbon Dioxide BUN Creatinine Glucose POC Glucose 191 H 239 H Lactic Acid Calcium Phosphorus Magnesium Direct Bilirubin AST ALT Alkaline Phosphatase Lactate Dehydrogenase Troponin T C-Reactive Protein Total Protein Albumin Prealbumin Triglycerides Cholesterol LDL Cholesterol Direct HDL Cholesterol Urine pH Urine WBC (Auto) Urine Creatinine Urine Total Protein Fluid Total Protein Vancomycin Trough Rheumatoid Factor Complement C4 Miscellaneous Test Crossmatch 09/11/16 09/12/16 09/12/16 23:52 05:09 05:32 WBC RBC Hgb Hct MCV MCH MCHC RDW Plt Count Lymph % (Auto) [place] % (Auto) Lymph # [place] # Baso # Seg Neutrophils % Seg Neuts % (Manual) Lymphocytes % (Manual) Monocytes % (Manual) Eosinophils % (Manual) Basophils % (Manual) Nucleated RBC % Seg Neutrophils # Seg Neutrophils # Man Lymphocytes # (Manual) Monocytes # (Manual) Eosinophils # (Manual) PT INR Fibrinogen dRVVT Confirm Interp Factor V Activity POC ABG pH POC ABG pCO2 34.6 L POC ABG pO2 ABG pO2 ABG HCO3 ABG Base Excess ABG Hemoglobin Oxyhemoglobin Sodium Potassium Chloride Carbon Dioxide BUN Creatinine Glucose POC Glucose 265 H 184 H Lactic Acid Calcium Phosphorus Magnesium Direct Bilirubin AST ALT Alkaline Phosphatase Lactate Dehydrogenase Troponin T C-Reactive Protein Total Protein Albumin Prealbumin Triglycerides Cholesterol LDL Cholesterol Direct HDL Cholesterol Urine pH Urine WBC (Auto) Urine Creatinine Urine Total Protein Fluid Total Protein Vancomycin Trough Rheumatoid Factor Complement C4 Miscellaneous Test Crossmatch 09/12/16 09/12/16 09/12/16 06:45 06:45 07:22 WBC 31.7 H RBC 3.54 L Hgb 8.3 L Hct 25.9 L MCV 73 L MCH 23 L MCHC RDW 18.9 H Plt Count Lymph % (Auto) [place] % (Auto) Lymph # [place] # Baso # Seg Neutrophils % Seg Neuts % (Manual) 88.5 H Lymphocytes % (Manual) 4.5 L Monocytes % (Manual) Eosinophils % (Manual) Basophils % (Manual) Nucleated RBC % Seg Neutrophils # Seg Neutrophils # Man 28.1 H Lymphocytes # (Manual) Monocytes # (Manual) 1.0 H Eosinophils # (Manual) PT INR Fibrinogen dRVVT Confirm Interp Factor V Activity POC ABG pH POC ABG pCO2 POC ABG pO2 ABG pO2 ABG HCO3 ABG Base Excess ABG Hemoglobin Oxyhemoglobin Sodium Potassium Chloride Carbon Dioxide 20 L BUN 115 H Creatinine 2.7 H Glucose 165 H POC Glucose Lactic Acid Calcium 8.0 L Phosphorus Magnesium Direct Bilirubin AST ALT Alkaline Phosphatase Lactate Dehydrogenase Troponin T C-Reactive Protein Total Protein Albumin Prealbumin Triglycerides 217 H Cholesterol LDL Cholesterol Direct HDL Cholesterol Urine pH Urine WBC (Auto) Urine Creatinine Urine Total Protein Fluid Total Protein Vancomycin Trough Rheumatoid Factor Complement C4 Miscellaneous Test Crossmatch 09/12/16 09/12/16 09/12/16 07:22 09:59 12:21 WBC RBC Hgb Hct MCV MCH MCHC RDW Plt Count Lymph % (Auto) [place] % (Auto) Lymph # [place] # Baso # Seg Neutrophils % Seg Neuts % (Manual) Lymphocytes % (Manual) Monocytes % (Manual) Eosinophils % (Manual) Basophils % (Manual) Nucleated RBC % Seg Neutrophils # Seg Neutrophils # Man Lymphocytes # (Manual) Monocytes # (Manual) Eosinophils # (Manual) PT INR Fibrinogen dRVVT Confirm Interp Positive H Factor V Activity POC ABG pH POC ABG pCO2 POC ABG pO2 ABG pO2 ABG HCO3 ABG Base Excess ABG Hemoglobin Oxyhemoglobin Sodium Potassium Chloride Carbon Dioxide BUN Creatinine Glucose POC Glucose 224 H Lactic Acid Calcium Phosphorus Magnesium Direct Bilirubin AST ALT Alkaline Phosphatase Lactate Dehydrogenase Troponin T C-Reactive Protein 1.70 H Total Protein Albumin Prealbumin Triglycerides Cholesterol LDL Cholesterol Direct HDL Cholesterol Urine pH Urine WBC (Auto) Urine Creatinine Urine Total Protein Fluid Total Protein Vancomycin Trough Rheumatoid Factor Complement C4 Miscellaneous Test Crossmatch 09/12/16 09/12/16 09/13/16 16:51 23:28 04:00 WBC 45.0 H* RBC Hgb 9.4 L Hct MCV 75 L MCH 23 L MCHC RDW 19.0 H Plt Count 470 H Lymph % (Auto) [place] % (Auto) Lymph # [place] # Baso # Seg Neutrophils % Seg Neuts % (Manual) 89.0 H Lymphocytes % (Manual) 5.0 L Monocytes % (Manual) Eosinophils % (Manual) Basophils % (Manual) Nucleated RBC % Seg Neutrophils # Seg Neutrophils # Man 40.1 H Lymphocytes # (Manual) Monocytes # (Manual) Eosinophils # (Manual) PT INR Fibrinogen dRVVT Confirm Interp Factor V Activity POC ABG pH POC ABG pCO2 POC ABG pO2 ABG pO2 ABG HCO3 ABG Base Excess ABG Hemoglobin Oxyhemoglobin Sodium Potassium Chloride Carbon Dioxide BUN Creatinine Glucose POC Glucose 169 H 150 H Lactic Acid Calcium Phosphorus Magnesium Direct Bilirubin AST ALT Alkaline Phosphatase Lactate Dehydrogenase Troponin T C-Reactive Protein Total Protein Albumin Prealbumin Triglycerides Cholesterol LDL Cholesterol Direct HDL Cholesterol Urine pH Urine WBC (Auto) Urine Creatinine Urine Total Protein Fluid Total Protein Vancomycin Trough Rheumatoid Factor Complement C4 Miscellaneous Test Crossmatch 09/13/16 09/13/16 09/13/16 04:00 11:26 17:31 WBC RBC Hgb Hct MCV MCH MCHC RDW Plt Count Lymph % (Auto) [place] % (Auto) Lymph # [place] # Baso # Seg Neutrophils % Seg Neuts % (Manual) Lymphocytes % (Manual) Monocytes % (Manual) Eosinophils % (Manual) Basophils % (Manual) Nucleated RBC % Seg Neutrophils # Seg Neutrophils # Man Lymphocytes # (Manual) Monocytes # (Manual) Eosinophils # (Manual) PT INR Fibrinogen dRVVT Confirm Interp Factor V Activity POC ABG pH POC ABG pCO2 POC ABG pO2 ABG pO2 ABG HCO3 ABG Base Excess ABG Hemoglobin Oxyhemoglobin Sodium Potassium Chloride Carbon Dioxide 20 L BUN 116 H Creatinine 3.0 H Glucose 172 H POC Glucose 140 H 183 H Lactic Acid Calcium Phosphorus Magnesium Direct Bilirubin AST ALT Alkaline Phosphatase Lactate Dehydrogenase Troponin T C-Reactive Protein Total Protein 6.2 L Albumin 2.9 L Prealbumin Triglycerides Cholesterol LDL Cholesterol Direct HDL Cholesterol Urine pH Urine WBC (Auto) Urine Creatinine Urine Total Protein Fluid Total Protein Vancomycin Trough Rheumatoid Factor Complement C4 Miscellaneous Test Crossmatch 09/13/16 09/14/16 09/14/16 23:23 04:06 04:07 WBC 29.4 H RBC Hgb 8.9 L Hct 27.3 L MCV 75 L MCH 24 L MCHC RDW 19.1 H Plt Count Lymph % (Auto) [place] % (Auto) Lymph # [place] # Baso # Seg Neutrophils % Seg Neuts % (Manual) 84.0 H Lymphocytes % (Manual) 6.0 L Monocytes % (Manual) 9.0 H Eosinophils % (Manual) Basophils % (Manual) Nucleated RBC % Seg Neutrophils # Seg Neutrophils # Man 24.7 H Lymphocytes # (Manual) Monocytes # (Manual) 2.6 H Eosinophils # (Manual) PT INR Fibrinogen dRVVT Confirm Interp Factor V Activity POC ABG pH 7.342 L POC ABG pCO2 POC ABG pO2 116 H ABG pO2 ABG HCO3 ABG Base Excess ABG Hemoglobin Oxyhemoglobin Sodium Potassium Chloride Carbon Dioxide BUN Creatinine Glucose POC Glucose 154 H Lactic Acid Calcium Phosphorus Magnesium Direct Bilirubin AST ALT Alkaline Phosphatase Lactate Dehydrogenase Troponin T C-Reactive Protein Total Protein Albumin Prealbumin Triglycerides Cholesterol LDL Cholesterol Direct HDL Cholesterol Urine pH Urine WBC (Auto) Urine Creatinine Urine Total Protein Fluid Total Protein Vancomycin Trough Rheumatoid Factor Complement C4 Miscellaneous Test Crossmatch 09/14/16 09/14/16 09/14/16 04:07 05:29 12:19 WBC RBC Hgb Hct MCV MCH MCHC RDW Plt Count Lymph % (Auto) [place] % (Auto) Lymph # [place] # Baso # Seg Neutrophils % Seg Neuts % (Manual) Lymphocytes % (Manual) Monocytes % (Manual) Eosinophils % (Manual) Basophils % (Manual) Nucleated RBC % Seg Neutrophils # Seg Neutrophils # Man Lymphocytes # (Manual) Monocytes # (Manual) Eosinophils # (Manual) PT INR Fibrinogen dRVVT Confirm Interp Factor V Activity POC ABG pH POC ABG pCO2 POC ABG pO2 ABG pO2 ABG HCO3 ABG Base Excess ABG Hemoglobin Oxyhemoglobin Sodium 136 L Potassium Chloride Carbon Dioxide 18 L BUN 121 H Creatinine 2.8 H Glucose 214 H POC Glucose 239 H 181 H Lactic Acid Calcium Phosphorus Magnesium Direct Bilirubin AST ALT Alkaline Phosphatase Lactate Dehydrogenase Troponin T C-Reactive Protein Total Protein Albumin Prealbumin Triglycerides Cholesterol LDL Cholesterol Direct HDL Cholesterol Urine pH Urine WBC (Auto) Urine Creatinine Urine Total Protein Fluid Total Protein Vancomycin Trough Rheumatoid Factor Complement C4 Miscellaneous Test Crossmatch 09/14/16 09/14/16 09/15/16 18:12 23:37 05:00 WBC 26.1 H RBC 3.05 L Hgb 7.2 L Hct 22.9 L MCV 75 L MCH 24 L MCHC RDW 19.0 H Plt Count Lymph % (Auto) [place] % (Auto) Lymph # [place] # Baso # Seg Neutrophils % Seg Neuts % (Manual) Lymphocytes % (Manual) Monocytes % (Manual) Eosinophils % (Manual) Basophils % (Manual) Nucleated RBC % Seg Neutrophils # Seg Neutrophils # Man Lymphocytes # (Manual) Monocytes # (Manual) Eosinophils # (Manual) PT INR Fibrinogen dRVVT Confirm Interp Factor V Activity POC ABG pH POC ABG pCO2 POC ABG pO2 ABG pO2 ABG HCO3 ABG Base Excess ABG Hemoglobin Oxyhemoglobin Sodium Potassium Chloride Carbon Dioxide BUN Creatinine Glucose POC Glucose 266 H 154 H Lactic Acid Calcium Phosphorus Magnesium Direct Bilirubin AST ALT Alkaline Phosphatase Lactate Dehydrogenase Troponin T C-Reactive Protein Total Protein Albumin Prealbumin Triglycerides Cholesterol LDL Cholesterol Direct HDL Cholesterol Urine pH Urine WBC (Auto) Urine Creatinine Urine Total Protein Fluid Total Protein Vancomycin Trough Rheumatoid Factor Complement C4 Miscellaneous Test Crossmatch 09/15/16 09/15/16 09/15/16 05:00 05:17 12:45 WBC RBC Hgb Hct MCV MCH MCHC RDW Plt Count Lymph % (Auto) [place] % (Auto) Lymph # [place] # Baso # Seg Neutrophils % Seg Neuts % (Manual) Lymphocytes % (Manual) Monocytes % (Manual) Eosinophils % (Manual) Basophils % (Manual) Nucleated RBC % Seg Neutrophils # Seg Neutrophils # Man Lymphocytes # (Manual) Monocytes # (Manual) Eosinophils # (Manual) PT INR Fibrinogen dRVVT Confirm Interp Factor V Activity POC ABG pH POC ABG pCO2 POC ABG pO2 ABG pO2 ABG HCO3 ABG Base Excess ABG Hemoglobin Oxyhemoglobin Sodium Potassium 5.2 H Chloride Carbon Dioxide 18 L BUN 139 H Creatinine 3.7 H Glucose 227 H POC Glucose 226 H 244 H Lactic Acid Calcium 8.3 L Phosphorus Magnesium Direct Bilirubin AST ALT Alkaline Phosphatase Lactate Dehydrogenase Troponin T C-Reactive Protein Total Protein Albumin Prealbumin Triglycerides Cholesterol LDL Cholesterol Direct HDL Cholesterol Urine pH Urine WBC (Auto) Urine Creatinine Urine Total Protein Fluid Total Protein Vancomycin Trough Rheumatoid Factor Complement C4 Miscellaneous Test Crossmatch 09/15/16 09/15/16 09/15/16 14:32 17:33 23:35 WBC RBC Hgb Hct MCV MCH MCHC RDW Plt Count Lymph % (Auto) [place] % (Auto) Lymph # [place] # Baso # Seg Neutrophils % Seg Neuts % (Manual) Lymphocytes % (Manual) Monocytes % (Manual) Eosinophils % (Manual) Basophils % (Manual) Nucleated RBC % Seg Neutrophils # Seg Neutrophils # Man Lymphocytes # (Manual) Monocytes # (Manual) Eosinophils # (Manual) PT INR Fibrinogen dRVVT Confirm Interp Factor V Activity POC ABG pH POC ABG pCO2 27.7 L POC ABG pO2 120 H ABG pO2 ABG HCO3 ABG Base Excess ABG Hemoglobin Oxyhemoglobin Sodium Potassium Chloride Carbon Dioxide BUN Creatinine Glucose POC Glucose 232 H 167 H Lactic Acid Calcium Phosphorus Magnesium Direct Bilirubin AST ALT Alkaline Phosphatase Lactate Dehydrogenase Troponin T C-Reactive Protein Total Protein Albumin Prealbumin Triglycerides Cholesterol LDL Cholesterol Direct HDL Cholesterol Urine pH Urine WBC (Auto) Urine Creatinine Urine Total Protein Fluid Total Protein Vancomycin Trough Rheumatoid Factor Complement C4 Miscellaneous Test Crossmatch 09/16/16 09/16/16 09/16/16 03:58 10:27 10:27 WBC 19.0 H RBC 2.77 L Hgb 6.5 L Hct 20.9 L MCV 76 L MCH 23 L MCHC RDW 19.3 H Plt Count Lymph % (Auto) 11.0 L [place] % (Auto) Lymph # [place] # 1.1 H Baso # Seg Neutrophils % 82.5 H Seg Neuts % (Manual) Lymphocytes % (Manual) Monocytes % (Manual) Eosinophils % (Manual) Basophils % (Manual) Nucleated RBC % Seg Neutrophils # 15.7 H Seg Neutrophils # Man Lymphocytes # (Manual) Monocytes # (Manual) Eosinophils # (Manual) PT INR Fibrinogen dRVVT Confirm Interp Factor V Activity POC ABG pH POC ABG pCO2 POC ABG pO2 ABG pO2 ABG HCO3 ABG Base Excess ABG Hemoglobin Oxyhemoglobin Sodium Potassium Chloride 109.3 H Carbon Dioxide 18 L BUN 139 H Creatinine 4.1 H Glucose 144 H POC Glucose 146 H Lactic Acid Calcium 8.1 L Phosphorus Magnesium Direct Bilirubin AST ALT Alkaline Phosphatase Lactate Dehydrogenase Troponin T C-Reactive Protein Total Protein Albumin Prealbumin Triglycerides Cholesterol LDL Cholesterol Direct HDL Cholesterol Urine pH Urine WBC (Auto) Urine Creatinine Urine Total Protein Fluid Total Protein Vancomycin Trough Rheumatoid Factor Complement C4 Miscellaneous Test Crossmatch 09/16/16 09/16/16 09/16/16 12:04 12:10 13:55 WBC RBC Hgb Hct MCV MCH MCHC RDW Plt Count Lymph % (Auto) [place] % (Auto) Lymph # [place] # Baso # Seg Neutrophils % Seg Neuts % (Manual) Lymphocytes % (Manual) Monocytes % (Manual) Eosinophils % (Manual) Basophils % (Manual) Nucleated RBC % Seg Neutrophils # Seg Neutrophils # Man Lymphocytes # (Manual) Monocytes # (Manual) Eosinophils # (Manual) PT INR Fibrinogen dRVVT Confirm Interp Factor V Activity POC ABG pH POC ABG pCO2 32.9 L POC ABG pO2 ABG pO2 ABG HCO3 ABG Base Excess ABG Hemoglobin Oxyhemoglobin Sodium Potassium Chloride Carbon Dioxide BUN Creatinine Glucose POC Glucose 185 H Lactic Acid Calcium Phosphorus Magnesium Direct Bilirubin AST ALT Alkaline Phosphatase Lactate Dehydrogenase Troponin T C-Reactive Protein Total Protein Albumin Prealbumin Triglycerides Cholesterol LDL Cholesterol Direct HDL Cholesterol Urine pH Urine WBC (Auto) Urine Creatinine Urine Total Protein Fluid Total Protein Vancomycin Trough Rheumatoid Factor Complement C4 Miscellaneous Test Crossmatch See Detail 09/16/16 09/16/16 09/16/16 17:55 19:19 23:48 WBC RBC Hgb Hct MCV MCH MCHC RDW Plt Count Lymph % (Auto) [place] % (Auto) Lymph # [place] # Baso # Seg Neutrophils % Seg Neuts % (Manual) Lymphocytes % (Manual) Monocytes % (Manual) Eosinophils % (Manual) Basophils % (Manual) Nucleated RBC % Seg Neutrophils # Seg Neutrophils # Man Lymphocytes # (Manual) Monocytes # (Manual) Eosinophils # (Manual) PT INR Fibrinogen dRVVT Confirm Interp Factor V Activity POC ABG pH POC ABG pCO2 POC ABG pO2 ABG pO2 ABG HCO3 ABG Base Excess ABG Hemoglobin Oxyhemoglobin Sodium Potassium Chloride Carbon Dioxide BUN Creatinine Glucose POC Glucose 222 H 107 H Lactic Acid Calcium Phosphorus Magnesium Direct Bilirubin AST ALT Alkaline Phosphatase Lactate Dehydrogenase Troponin T C-Reactive Protein Total Protein Albumin Prealbumin Triglycerides Cholesterol LDL Cholesterol Direct HDL Cholesterol Urine pH Urine WBC (Auto) Urine Creatinine 47.4 H Urine Total Protein 16 H Fluid Total Protein Vancomycin Trough Rheumatoid Factor Complement C4 Miscellaneous Test Crossmatch 09/17/16 09/17/16 09/17/16 03:45 03:45 04:55 WBC 19.6 H RBC 3.41 L Hgb 8.5 L Hct 26.7 L MCV 78 L MCH 25 L MCHC RDW 19.9 H Plt Count Lymph % (Auto) 9.3 L [place] % (Auto) Lymph # [place] # 1.2 H Baso # Seg Neutrophils % 83.9 H Seg Neuts % (Manual) Lymphocytes % (Manual) Monocytes % (Manual) Eosinophils % (Manual) Basophils % (Manual) Nucleated RBC % Seg Neutrophils # 16.4 H Seg Neutrophils # Man Lymphocytes # (Manual) Monocytes # (Manual) Eosinophils # (Manual) PT INR Fibrinogen dRVVT Confirm Interp Factor V Activity POC ABG pH POC ABG pCO2 POC ABG pO2 ABG pO2 ABG HCO3 ABG Base Excess ABG Hemoglobin Oxyhemoglobin Sodium 146 H Potassium 5.1 H Chloride 110.9 H Carbon Dioxide 16 L BUN 146 H Creatinine 4.0 H Glucose 108 H POC Glucose 133 H Lactic Acid Calcium Phosphorus Magnesium 3.00 H Direct Bilirubin AST ALT Alkaline Phosphatase Lactate Dehydrogenase Troponin T C-Reactive Protein Total Protein Albumin Prealbumin Triglycerides Cholesterol LDL Cholesterol Direct HDL Cholesterol Urine pH Urine WBC (Auto) Urine Creatinine Urine Total Protein Fluid Total Protein Vancomycin Trough Rheumatoid Factor Complement C4 Miscellaneous Test Crossmatch 09/17/16 09/17/16 09/17/16 11:15 17:33 23:47 WBC RBC Hgb Hct MCV MCH MCHC RDW Plt Count Lymph % (Auto) [place] % (Auto) Lymph # [place] # Baso # Seg Neutrophils % Seg Neuts % (Manual) Lymphocytes % (Manual) Monocytes % (Manual) Eosinophils % (Manual) Basophils % (Manual) Nucleated RBC % Seg Neutrophils # Seg Neutrophils # Man Lymphocytes # (Manual) Monocytes # (Manual) Eosinophils # (Manual) PT INR Fibrinogen dRVVT Confirm Interp Factor V Activity POC ABG pH POC ABG pCO2 POC ABG pO2 ABG pO2 ABG HCO3 ABG Base Excess ABG Hemoglobin Oxyhemoglobin Sodium Potassium Chloride Carbon Dioxide BUN Creatinine Glucose POC Glucose 176 H 246 H 148 H Lactic Acid Calcium Phosphorus Magnesium Direct Bilirubin AST ALT Alkaline Phosphatase Lactate Dehydrogenase Troponin T C-Reactive Protein Total Protein Albumin Prealbumin Triglycerides Cholesterol LDL Cholesterol Direct HDL Cholesterol Urine pH Urine WBC (Auto) Urine Creatinine Urine Total Protein Fluid Total Protein Vancomycin Trough Rheumatoid Factor Complement C4 Miscellaneous Test Crossmatch 09/18/16 09/18/16 09/18/16 05:33 08:31 08:31 WBC 18.0 H RBC 3.17 L Hgb 9.0 L Hct 25.7 L MCV MCH MCHC 35 H RDW 20.4 H Plt Count Lymph % (Auto) [place] % (Auto) Lymph # [place] # Baso # Seg Neutrophils % Seg Neuts % (Manual) Lymphocytes % (Manual) Monocytes % (Manual) Eosinophils % (Manual) Basophils % (Manual) Nucleated RBC % Seg Neutrophils # Seg Neutrophils # Man Lymphocytes # (Manual) Monocytes # (Manual) Eosinophils # (Manual) PT INR Fibrinogen dRVVT Confirm Interp Factor V Activity POC ABG pH POC ABG pCO2 POC ABG pO2 ABG pO2 ABG HCO3 ABG Base Excess ABG Hemoglobin Oxyhemoglobin Sodium Potassium Chloride Carbon Dioxide 15 L BUN 124 H Creatinine 3.8 H Glucose POC Glucose 120 H Lactic Acid Calcium 8.1 L Phosphorus Magnesium Direct Bilirubin AST ALT Alkaline Phosphatase Lactate Dehydrogenase Troponin T C-Reactive Protein Total Protein Albumin Prealbumin Triglycerides Cholesterol LDL Cholesterol Direct HDL Cholesterol Urine pH Urine WBC (Auto) Urine Creatinine Urine Total Protein Fluid Total Protein Vancomycin Trough Rheumatoid Factor Complement C4 Miscellaneous Test Crossmatch 09/18/16 09/18/16 09/18/16 12:03 15:34 17:50 WBC RBC Hgb Hct MCV MCH MCHC RDW Plt Count Lymph % (Auto) [place] % (Auto) Lymph # [place] # Baso # Seg Neutrophils % Seg Neuts % (Manual) Lymphocytes % (Manual) Monocytes % (Manual) Eosinophils % (Manual) Basophils % (Manual) Nucleated RBC % Seg Neutrophils # Seg Neutrophils # Man Lymphocytes # (Manual) Monocytes # (Manual) Eosinophils # (Manual) PT INR Fibrinogen dRVVT Confirm Interp Factor V Activity POC ABG pH POC ABG pCO2 25.7 L POC ABG pO2 66 L ABG pO2 ABG HCO3 ABG Base Excess ABG Hemoglobin Oxyhemoglobin Sodium Potassium Chloride Carbon Dioxide BUN Creatinine Glucose POC Glucose 156 H 220 H Lactic Acid Calcium Phosphorus Magnesium Direct Bilirubin AST ALT Alkaline Phosphatase Lactate Dehydrogenase Troponin T C-Reactive Protein Total Protein Albumin Prealbumin Triglycerides Cholesterol LDL Cholesterol Direct HDL Cholesterol Urine pH Urine WBC (Auto) Urine Creatinine Urine Total Protein Fluid Total Protein Vancomycin Trough Rheumatoid Factor Complement C4 Miscellaneous Test Crossmatch 09/19/16 09/19/16 09/19/16 06:21 09:50 09:50 WBC 17.1 H RBC 3.49 L Hgb 9.0 L Hct 28.1 L MCV MCH 26 L MCHC RDW 20.8 H Plt Count Lymph % (Auto) 11.5 L [place] % (Auto) 7.5 H Lymph # [place] # 1.3 H Baso # Seg Neutrophils % 79.8 H Seg Neuts % (Manual) Lymphocytes % (Manual) Monocytes % (Manual) Eosinophils % (Manual) Basophils % (Manual) Nucleated RBC % Seg Neutrophils # 13.7 H Seg Neutrophils # Man Lymphocytes # (Manual) Monocytes # (Manual) Eosinophils # (Manual) PT INR Fibrinogen dRVVT Confirm Interp Factor V Activity POC ABG pH POC ABG pCO2 POC ABG pO2 ABG pO2 ABG HCO3 ABG Base Excess ABG Hemoglobin Oxyhemoglobin Sodium Potassium Chloride 108.6 H Carbon Dioxide 15 L BUN 125 H Creatinine 4.1 H Glucose 124 H POC Glucose 119 H Lactic Acid Calcium Phosphorus Magnesium Direct Bilirubin AST ALT Alkaline Phosphatase Lactate Dehydrogenase Troponin T C-Reactive Protein Total Protein Albumin Prealbumin Triglycerides Cholesterol LDL Cholesterol Direct HDL Cholesterol Urine pH Urine WBC (Auto) Urine Creatinine Urine Total Protein Fluid Total Protein Vancomycin Trough Rheumatoid Factor Complement C4 Miscellaneous Test Crossmatch 09/19/16 09/19/16 09/19/16 11:25 17:53 23:36 WBC RBC Hgb Hct MCV MCH MCHC RDW Plt Count Lymph % (Auto) [place] % (Auto) Lymph # [place] # Baso # Seg Neutrophils % Seg Neuts % (Manual) Lymphocytes % (Manual) Monocytes % (Manual) Eosinophils % (Manual) Basophils % (Manual) Nucleated RBC % Seg Neutrophils # Seg Neutrophils # Man Lymphocytes # (Manual) Monocytes # (Manual) Eosinophils # (Manual) PT INR Fibrinogen dRVVT Confirm Interp Factor V Activity POC ABG pH POC ABG pCO2 POC ABG pO2 ABG pO2 ABG HCO3 ABG Base Excess ABG Hemoglobin Oxyhemoglobin Sodium Potassium Chloride Carbon Dioxide BUN Creatinine Glucose POC Glucose 160 H 245 H 121 H Lactic Acid Calcium Phosphorus Magnesium Direct Bilirubin AST ALT Alkaline Phosphatase Lactate Dehydrogenase Troponin T C-Reactive Protein Total Protein Albumin Prealbumin Triglycerides Cholesterol LDL Cholesterol Direct HDL Cholesterol Urine pH Urine WBC (Auto) Urine Creatinine Urine Total Protein Fluid Total Protein Vancomycin Trough Rheumatoid Factor Complement C4 Miscellaneous Test Crossmatch 09/20/16 09/20/16 09/20/16 04:10 04:10 04:10 WBC 17.0 H RBC 3.21 L Hgb 8.2 L Hct 25.5 L MCV MCH 26 L MCHC RDW 20.9 H Plt Count Lymph % (Auto) [place] % (Auto) Lymph # [place] # Baso # Seg Neutrophils % Seg Neuts % (Manual) Lymphocytes % (Manual) Monocytes % (Manual) Eosinophils % (Manual) Basophils % (Manual) Nucleated RBC % Seg Neutrophils # Seg Neutrophils # Man Lymphocytes # (Manual) Monocytes # (Manual) Eosinophils # (Manual) PT INR Fibrinogen dRVVT Confirm Interp Factor V Activity POC ABG pH POC ABG pCO2 POC ABG pO2 ABG pO2 ABG HCO3 ABG Base Excess ABG Hemoglobin Oxyhemoglobin Sodium Potassium Chloride 111.0 H Carbon Dioxide 16 L BUN 129 H Creatinine 3.7 H Glucose 115 H POC Glucose Lactic Acid Calcium 8.2 L Phosphorus Magnesium Direct Bilirubin AST ALT Alkaline Phosphatase Lactate Dehydrogenase Troponin T C-Reactive Protein Total Protein Albumin Prealbumin Triglycerides 243 H Cholesterol LDL Cholesterol Direct HDL Cholesterol Urine pH Urine WBC (Auto) Urine Creatinine Urine Total Protein Fluid Total Protein Vancomycin Trough Rheumatoid Factor Complement C4 Miscellaneous Test Crossmatch 09/20/16 09/20/16 09/20/16 05:40 11:52 16:50 WBC RBC Hgb Hct MCV MCH MCHC RDW Plt Count Lymph % (Auto) [place] % (Auto) Lymph # [place] # Baso # Seg Neutrophils % Seg Neuts % (Manual) Lymphocytes % (Manual) Monocytes % (Manual) Eosinophils % (Manual) Basophils % (Manual) Nucleated RBC % Seg Neutrophils # Seg Neutrophils # Man Lymphocytes # (Manual) Monocytes # (Manual) Eosinophils # (Manual) PT INR Fibrinogen dRVVT Confirm Interp Factor V Activity POC ABG pH POC ABG pCO2 POC ABG pO2 ABG pO2 ABG HCO3 ABG Base Excess ABG Hemoglobin Oxyhemoglobin Sodium Potassium Chloride Carbon Dioxide BUN Creatinine Glucose POC Glucose 131 H 183 H 236 H Lactic Acid Calcium Phosphorus Magnesium Direct Bilirubin AST ALT Alkaline Phosphatase Lactate Dehydrogenase Troponin T C-Reactive Protein Total Protein Albumin Prealbumin Triglycerides Cholesterol LDL Cholesterol Direct HDL Cholesterol Urine pH Urine WBC (Auto) Urine Creatinine Urine Total Protein Fluid Total Protein Vancomycin Trough Rheumatoid Factor Complement C4 Miscellaneous Test Crossmatch 09/20/16 09/21/16 09/21/16 23:51 03:30 04:44 WBC RBC Hgb Hct MCV MCH MCHC RDW Plt Count Lymph % (Auto) [place] % (Auto) Lymph # [place] # Baso # Seg Neutrophils % Seg Neuts % (Manual) Lymphocytes % (Manual) Monocytes % (Manual) Eosinophils % (Manual) Basophils % (Manual) Nucleated RBC % Seg Neutrophils # Seg Neutrophils # Man Lymphocytes # (Manual) Monocytes # (Manual) Eosinophils # (Manual) PT INR Fibrinogen dRVVT Confirm Interp Factor V Activity POC ABG pH POC ABG pCO2 POC ABG pO2 ABG pO2 ABG HCO3 ABG Base Excess ABG Hemoglobin Oxyhemoglobin Sodium Potassium Chloride Carbon Dioxide BUN Creatinine Glucose POC Glucose 114 H 141 H Lactic Acid Calcium Phosphorus Magnesium 2.70 H Direct Bilirubin AST ALT Alkaline Phosphatase Lactate Dehydrogenase Troponin T C-Reactive Protein Total Protein Albumin Prealbumin Triglycerides Cholesterol LDL Cholesterol Direct HDL Cholesterol Urine pH Urine WBC (Auto) Urine Creatinine Urine Total Protein Fluid Total Protein Vancomycin Trough Rheumatoid Factor Complement C4 Miscellaneous Test Crossmatch 09/21/16 09/21/16 09/21/16 07:45 07:45 10:01 WBC 13.8 H RBC 2.94 L Hgb 7.5 L Hct 23.5 L MCV MCH 26 L MCHC RDW 21.2 H Plt Count Lymph % (Auto) 6.9 L [place] % (Auto) 9.4 H Lymph # 0.9 L [place] # 1.3 H Baso # Seg Neutrophils % 83.2 H Seg Neuts % (Manual) Lymphocytes % (Manual) Monocytes % (Manual) Eosinophils % (Manual) Basophils % (Manual) Nucleated RBC % Seg Neutrophils # 11.5 H Seg Neutrophils # Man Lymphocytes # (Manual) Monocytes # (Manual) Eosinophils # (Manual) PT INR Fibrinogen dRVVT Confirm Interp Factor V Activity POC ABG pH 7.308 L POC ABG pCO2 31.9 L POC ABG pO2 148 H ABG pO2 ABG HCO3 ABG Base Excess ABG Hemoglobin Oxyhemoglobin Sodium 147 H Potassium Chloride 114.2 H Carbon Dioxide 15 L BUN 120 H Creatinine 3.9 H Glucose 156 H POC Glucose Lactic Acid Calcium 8.2 L Phosphorus Magnesium Direct Bilirubin AST ALT Alkaline Phosphatase Lactate Dehydrogenase Troponin T C-Reactive Protein Total Protein Albumin Prealbumin Triglycerides Cholesterol LDL Cholesterol Direct HDL Cholesterol Urine pH Urine WBC (Auto) Urine Creatinine Urine Total Protein Fluid Total Protein Vancomycin Trough Rheumatoid Factor Complement C4 Miscellaneous Test Crossmatch 09/21/16 09/21/16 09/21/16 12:00 12:03 13:00 WBC RBC Hgb Hct MCV MCH MCHC RDW Plt Count Lymph % (Auto) [place] % (Auto) Lymph # [place] # Baso # Seg Neutrophils % Seg Neuts % (Manual) Lymphocytes % (Manual) Monocytes % (Manual) Eosinophils % (Manual) Basophils % (Manual) Nucleated RBC % Seg Neutrophils # Seg Neutrophils # Man Lymphocytes # (Manual) Monocytes # (Manual) Eosinophils # (Manual) PT INR Fibrinogen dRVVT Confirm Interp Factor V Activity POC ABG pH POC ABG pCO2 POC ABG pO2 ABG pO2 ABG HCO3 ABG Base Excess ABG Hemoglobin Oxyhemoglobin Sodium Potassium Chloride Carbon Dioxide BUN Creatinine Glucose POC Glucose 163 H Lactic Acid Calcium Phosphorus Magnesium Direct Bilirubin AST ALT Alkaline Phosphatase Lactate Dehydrogenase Troponin T C-Reactive Protein Total Protein Albumin Prealbumin Triglycerides Cholesterol LDL Cholesterol Direct HDL Cholesterol Urine pH Urine WBC (Auto) Urine Creatinine 54.8 H Urine Total Protein Fluid Total Protein Vancomycin Trough 2.3 L Rheumatoid Factor Complement C4 Miscellaneous Test Crossmatch 09/21/16 09/21/16 09/22/16 16:51 23:17 06:27 WBC RBC Hgb Hct MCV MCH MCHC RDW Plt Count Lymph % (Auto) [place] % (Auto) Lymph # [place] # Baso # Seg Neutrophils % Seg Neuts % (Manual) Lymphocytes % (Manual) Monocytes % (Manual) Eosinophils % (Manual) Basophils % (Manual) Nucleated RBC % Seg Neutrophils # Seg Neutrophils # Man Lymphocytes # (Manual) Monocytes # (Manual) Eosinophils # (Manual) PT INR Fibrinogen dRVVT Confirm Interp Factor V Activity POC ABG pH POC ABG pCO2 POC ABG pO2 ABG pO2 ABG HCO3 ABG Base Excess ABG Hemoglobin Oxyhemoglobin Sodium Potassium Chloride Carbon Dioxide BUN Creatinine Glucose POC Glucose 206 H 114 H 115 H Lactic Acid Calcium Phosphorus Magnesium Direct Bilirubin AST ALT Alkaline Phosphatase Lactate Dehydrogenase Troponin T C-Reactive Protein Total Protein Albumin Prealbumin Triglycerides Cholesterol LDL Cholesterol Direct HDL Cholesterol Urine pH Urine WBC (Auto) Urine Creatinine Urine Total Protein Fluid Total Protein Vancomycin Trough Rheumatoid Factor Complement C4 Miscellaneous Test Crossmatch 09/22/16 09/22/16 09/22/16 07:50 07:50 12:00 WBC 17.8 H RBC 3.04 L Hgb 8.0 L Hct 24.7 L MCV MCH 26 L MCHC RDW 21.6 H Plt Count Lymph % (Auto) [place] % (Auto) Lymph # [place] # Baso # Seg Neutrophils % Seg Neuts % (Manual) Lymphocytes % (Manual) Monocytes % (Manual) Eosinophils % (Manual) Basophils % (Manual) Nucleated RBC % Seg Neutrophils # Seg Neutrophils # Man Lymphocytes # (Manual) Monocytes # (Manual) Eosinophils # (Manual) PT INR Fibrinogen dRVVT Confirm Interp Factor V Activity POC ABG pH POC ABG pCO2 POC ABG pO2 ABG pO2 ABG HCO3 ABG Base Excess ABG Hemoglobin Oxyhemoglobin Sodium 150 H Potassium Chloride 118.2 H Carbon Dioxide 14 L BUN 111 H Creatinine 3.7 H Glucose 157 H POC Glucose 183 H Lactic Acid Calcium Phosphorus Magnesium Direct Bilirubin AST ALT Alkaline Phosphatase Lactate Dehydrogenase Troponin T C-Reactive Protein Total Protein Albumin Prealbumin Triglycerides Cholesterol LDL Cholesterol Direct HDL Cholesterol Urine pH Urine WBC (Auto) Urine Creatinine Urine Total Protein Fluid Total Protein Vancomycin Trough Rheumatoid Factor Complement C4 Miscellaneous Test Crossmatch 09/22/16 09/22/16 09/23/16 17:29 23:10 05:00 WBC 19.2 H RBC 3.13 L Hgb 8.0 L Hct 25.2 L MCV MCH 26 L MCHC RDW 22.1 H Plt Count Lymph % (Auto) [place] % (Auto) Lymph # [place] # Baso # Seg Neutrophils % Seg Neuts % (Manual) 92.0 H Lymphocytes % (Manual) 3.0 L Monocytes % (Manual) Eosinophils % (Manual) Basophils % (Manual) Nucleated RBC % Seg Neutrophils # Seg Neutrophils # Man 17.7 H Lymphocytes # (Manual) 0.6 L Monocytes # (Manual) Eosinophils # (Manual) PT INR Fibrinogen dRVVT Confirm Interp Factor V Activity POC ABG pH POC ABG pCO2 POC ABG pO2 ABG pO2 ABG HCO3 ABG Base Excess ABG Hemoglobin Oxyhemoglobin Sodium Potassium Chloride Carbon Dioxide BUN Creatinine Glucose POC Glucose 197 H 169 H Lactic Acid Calcium Phosphorus Magnesium Direct Bilirubin AST ALT Alkaline Phosphatase Lactate Dehydrogenase Troponin T C-Reactive Protein Total Protein Albumin Prealbumin Triglycerides Cholesterol LDL Cholesterol Direct HDL Cholesterol Urine pH Urine WBC (Auto) Urine Creatinine Urine Total Protein Fluid Total Protein Vancomycin Trough Rheumatoid Factor Complement C4 Miscellaneous Test Crossmatch 09/23/16 09/23/16 09/23/16 05:00 05:00 05:10 WBC RBC Hgb Hct MCV MCH MCHC RDW Plt Count Lymph % (Auto) [place] % (Auto) Lymph # [place] # Baso # Seg Neutrophils % Seg Neuts % (Manual) Lymphocytes % (Manual) Monocytes % (Manual) Eosinophils % (Manual) Basophils % (Manual) Nucleated RBC % Seg Neutrophils # Seg Neutrophils # Man Lymphocytes # (Manual) Monocytes # (Manual) Eosinophils # (Manual) PT INR Fibrinogen dRVVT Confirm Interp Factor V Activity POC ABG pH POC ABG pCO2 POC ABG pO2 ABG pO2 ABG HCO3 ABG Base Excess ABG Hemoglobin Oxyhemoglobin Sodium 147 H Potassium 3.2 L Chloride 115.7 H Carbon Dioxide 13 L BUN 111 H Creatinine 3.8 H Glucose 194 H POC Glucose 188 H Lactic Acid Calcium 7.3 L D Phosphorus Magnesium Direct Bilirubin AST ALT Alkaline Phosphatase Lactate Dehydrogenase Troponin T C-Reactive Protein 3.20 H Total Protein Albumin Prealbumin Triglycerides Cholesterol LDL Cholesterol Direct HDL Cholesterol Urine pH Urine WBC (Auto) Urine Creatinine Urine Total Protein Fluid Total Protein Vancomycin Trough Rheumatoid Factor Complement C4 Miscellaneous Test Crossmatch 09/23/16 09/23/16 09/23/16 11:37 12:29 18:01 WBC RBC Hgb Hct MCV MCH MCHC RDW Plt Count Lymph % (Auto) [place] % (Auto) Lymph # [place] # Baso # Seg Neutrophils % Seg Neuts % (Manual) Lymphocytes % (Manual) Monocytes % (Manual) Eosinophils % (Manual) Basophils % (Manual) Nucleated RBC % Seg Neutrophils # Seg Neutrophils # Man Lymphocytes # (Manual) Monocytes # (Manual) Eosinophils # (Manual) PT INR Fibrinogen dRVVT Confirm Interp Factor V Activity POC ABG pH POC ABG pCO2 18.9 L POC ABG pO2 143 H ABG pO2 ABG HCO3 ABG Base Excess ABG Hemoglobin Oxyhemoglobin Sodium Potassium Chloride Carbon Dioxide BUN Creatinine Glucose POC Glucose 153 H 108 H Lactic Acid Calcium Phosphorus Magnesium Direct Bilirubin AST ALT Alkaline Phosphatase Lactate Dehydrogenase Troponin T C-Reactive Protein Total Protein Albumin Prealbumin Triglycerides Cholesterol LDL Cholesterol Direct HDL Cholesterol Urine pH Urine WBC (Auto) Urine Creatinine Urine Total Protein Fluid Total Protein Vancomycin Trough Rheumatoid Factor Complement C4 Miscellaneous Test Crossmatch 09/23/16 09/23/16 09/24/16 21:19 23:43 05:16 WBC RBC Hgb Hct MCV MCH MCHC RDW Plt Count Lymph % (Auto) [place] % (Auto) Lymph # [place] # Baso # Seg Neutrophils % Seg Neuts % (Manual) Lymphocytes % (Manual) Monocytes % (Manual) Eosinophils % (Manual) Basophils % (Manual) Nucleated RBC % Seg Neutrophils # Seg Neutrophils # Man Lymphocytes # (Manual) Monocytes # (Manual) Eosinophils # (Manual) PT INR Fibrinogen dRVVT Confirm Interp Factor V Activity POC ABG pH POC ABG pCO2 17.3 L POC ABG pO2 112 H ABG pO2 ABG HCO3 ABG Base Excess ABG Hemoglobin Oxyhemoglobin Sodium Potassium Chloride Carbon Dioxide BUN Creatinine Glucose POC Glucose 143 H 164 H Lactic Acid Calcium Phosphorus Magnesium Direct Bilirubin AST ALT Alkaline Phosphatase Lactate Dehydrogenase Troponin T C-Reactive Protein Total Protein Albumin Prealbumin Triglycerides Cholesterol LDL Cholesterol Direct HDL Cholesterol Urine pH Urine WBC (Auto) Urine Creatinine Urine Total Protein Fluid Total Protein Vancomycin Trough Rheumatoid Factor Complement C4 Miscellaneous Test Crossmatch 09/24/16 09/24/16 09/24/16 05:21 11:58 17:06 WBC RBC Hgb Hct MCV MCH MCHC RDW Plt Count Lymph % (Auto) [place] % (Auto) Lymph # [place] # Baso # Seg Neutrophils % Seg Neuts % (Manual) Lymphocytes % (Manual) Monocytes % (Manual) Eosinophils % (Manual) Basophils % (Manual) Nucleated RBC % Seg Neutrophils # Seg Neutrophils # Man Lymphocytes # (Manual) Monocytes # (Manual) Eosinophils # (Manual) PT INR Fibrinogen dRVVT Confirm Interp Factor V Activity POC ABG pH POC ABG pCO2 POC ABG pO2 ABG pO2 ABG HCO3 ABG Base Excess ABG Hemoglobin Oxyhemoglobin Sodium Potassium Chloride Carbon Dioxide 10 L BUN 103 H Creatinine 4.3 H Glucose 163 H POC Glucose 173 H 167 H Lactic Acid Calcium 6.5 L Phosphorus Magnesium Direct Bilirubin AST ALT Alkaline Phosphatase Lactate Dehydrogenase Troponin T C-Reactive Protein Total Protein Albumin Prealbumin Triglycerides Cholesterol LDL Cholesterol Direct HDL Cholesterol Urine pH Urine WBC (Auto) Urine Creatinine Urine Total Protein Fluid Total Protein Vancomycin Trough Rheumatoid Factor Complement C4 Miscellaneous Test Crossmatch 09/24/16 09/24/16 09/24/16 20:15 21:02 23:48 WBC RBC Hgb Hct MCV MCH MCHC RDW Plt Count Lymph % (Auto) [place] % (Auto) Lymph # [place] # Baso # Seg Neutrophils % Seg Neuts % (Manual) Lymphocytes % (Manual) Monocytes % (Manual) Eosinophils % (Manual) Basophils % (Manual) Nucleated RBC % Seg Neutrophils # Seg Neutrophils # Man Lymphocytes # (Manual) Monocytes # (Manual) Eosinophils # (Manual) PT INR Fibrinogen dRVVT Confirm Interp Factor V Activity POC ABG pH 7.288 L POC ABG pCO2 30.2 L 21.5 L POC ABG pO2 32 L 39 L ABG pO2 ABG HCO3 ABG Base Excess ABG Hemoglobin Oxyhemoglobin Sodium Potassium Chloride Carbon Dioxide BUN Creatinine Glucose POC Glucose 109 H Lactic Acid Calcium Phosphorus Magnesium Direct Bilirubin AST ALT Alkaline Phosphatase Lactate Dehydrogenase Troponin T C-Reactive Protein Total Protein Albumin Prealbumin Triglycerides Cholesterol LDL Cholesterol Direct HDL Cholesterol Urine pH Urine WBC (Auto) Urine Creatinine Urine Total Protein Fluid Total Protein Vancomycin Trough Rheumatoid Factor Complement C4 Miscellaneous Test Crossmatch 08/08/0609/25/16 09/25/16 04:20 04:20 04:20 WBC RBC 2.58 L Hgb 7.0 L Hct 21.0 L MCV MCH 27 L MCHC RDW 23.8 H Plt Count Lymph % (Auto) [place] % (Auto) Lymph # [place] # Baso # Seg Neutrophils % Seg Neuts % (Manual) Lymphocytes % (Manual) 12.0 L Monocytes % (Manual) Eosinophils % (Manual) 7.0 H Basophils % (Manual) 2.0 H Nucleated RBC % Seg Neutrophils # Seg Neutrophils # Man Lymphocytes # (Manual) 0.9 L Monocytes # (Manual) Eosinophils # (Manual) 0.5 H PT INR Fibrinogen dRVVT Confirm Interp Factor V Activity POC ABG pH POC ABG pCO2 POC ABG pO2 ABG pO2 ABG HCO3 ABG Base Excess ABG Hemoglobin Oxyhemoglobin Sodium Potassium Chloride Carbon Dioxide 15 L BUN 72 H Creatinine 3.8 H Glucose POC Glucose Lactic Acid Calcium 6.0 L Phosphorus 4.60 H Magnesium 1.60 L Direct Bilirubin AST ALT Alkaline Phosphatase Lactate Dehydrogenase Troponin T C-Reactive Protein Total Protein Albumin Prealbumin Triglycerides Cholesterol LDL Cholesterol Direct HDL Cholesterol Urine pH Urine WBC (Auto) Urine Creatinine Urine Total Protein Fluid Total Protein Vancomycin Trough Rheumatoid Factor Complement C4 Miscellaneous Test Crossmatch 09/25/16 09/25/16 09/25/16 04:57 08:02 10:30 WBC RBC Hgb Hct MCV MCH MCHC RDW Plt Count Lymph % (Auto) [place] % (Auto) Lymph # [place] # Baso # Seg Neutrophils % Seg Neuts % (Manual) Lymphocytes % (Manual) Monocytes % (Manual) Eosinophils % (Manual) Basophils % (Manual) Nucleated RBC % Seg Neutrophils # Seg Neutrophils # Man Lymphocytes # (Manual) Monocytes # (Manual) Eosinophils # (Manual) PT INR Fibrinogen dRVVT Confirm Interp Factor V Activity POC ABG pH POC ABG pCO2 24.7 L POC ABG pO2 152 H ABG pO2 ABG HCO3 ABG Base Excess ABG Hemoglobin Oxyhemoglobin Sodium Potassium Chloride Carbon Dioxide BUN Creatinine Glucose POC Glucose 113 H Lactic Acid Calcium Phosphorus Magnesium Direct Bilirubin AST ALT Alkaline Phosphatase Lactate Dehydrogenase Troponin T C-Reactive Protein Total Protein Albumin Prealbumin Triglycerides Cholesterol LDL Cholesterol Direct HDL Cholesterol Urine pH Urine WBC (Auto) Urine Creatinine Urine Total Protein Fluid Total Protein Vancomycin Trough Rheumatoid Factor Complement C4 Miscellaneous Test Crossmatch See Detail 09/25/16 09/25/16 09/25/16 12:05 17:44 23:47 WBC RBC Hgb Hct MCV MCH MCHC RDW Plt Count Lymph % (Auto) [place] % (Auto) Lymph # [place] # Baso # Seg Neutrophils % Seg Neuts % (Manual) Lymphocytes % (Manual) Monocytes % (Manual) Eosinophils % (Manual) Basophils % (Manual) Nucleated RBC % Seg Neutrophils # Seg Neutrophils # Man Lymphocytes # (Manual) Monocytes # (Manual) Eosinophils # (Manual) PT INR Fibrinogen dRVVT Confirm Interp Factor V Activity POC ABG pH POC ABG pCO2 POC ABG pO2 ABG pO2 ABG HCO3 ABG Base Excess ABG Hemoglobin Oxyhemoglobin Sodium Potassium Chloride Carbon Dioxide BUN Creatinine Glucose POC Glucose 117 H 119 H 150 H Lactic Acid Calcium Phosphorus Magnesium Direct Bilirubin AST ALT Alkaline Phosphatase Lactate Dehydrogenase Troponin T C-Reactive Protein Total Protein Albumin Prealbumin Triglycerides Cholesterol LDL Cholesterol Direct HDL Cholesterol Urine pH Urine WBC (Auto) Urine Creatinine Urine Total Protein Fluid Total Protein Vancomycin Trough Rheumatoid Factor Complement C4 Miscellaneous Test Crossmatch 09/26/16 09/26/16 09/26/16 04:25 04:25 04:25 WBC RBC 2.65 L Hgb 7.4 L Hct 21.6 L MCV MCH MCHC RDW 22.5 H Plt Count Lymph % (Auto) [place] % (Auto) Lymph # [place] # Baso # Seg Neutrophils % Seg Neuts % (Manual) Lymphocytes % (Manual) 6.0 L Monocytes % (Manual) Eosinophils % (Manual) 11.0 H Basophils % (Manual) Nucleated RBC % Seg Neutrophils # Seg Neutrophils # Man Lymphocytes # (Manual) 0.4 L Monocytes # (Manual) Eosinophils # (Manual) 0.6 H PT INR Fibrinogen dRVVT Confirm Interp Factor V Activity POC ABG pH POC ABG pCO2 POC ABG pO2 ABG pO2 ABG HCO3 ABG Base Excess ABG Hemoglobin Oxyhemoglobin Sodium Potassium Chloride 97.0 L Carbon Dioxide 19 L BUN 43 H Creatinine 2.6 H Glucose 130 H POC Glucose Lactic Acid 4.40 H* Calcium 6.7 L Phosphorus Magnesium Direct Bilirubin AST ALT Alkaline Phosphatase Lactate Dehydrogenase Troponin T C-Reactive Protein Total Protein Albumin Prealbumin Triglycerides Cholesterol LDL Cholesterol Direct HDL Cholesterol Urine pH Urine WBC (Auto) Urine Creatinine Urine Total Protein Fluid Total Protein Vancomycin Trough Rheumatoid Factor Complement C4 Miscellaneous Test Crossmatch 0809/[id number] 09/26/16 05:20 11:44 12:12 WBC RBC Hgb Hct MCV MCH MCHC RDW Plt Count Lymph % (Auto) [place] % (Auto) Lymph # [place] # Baso # Seg Neutrophils % Seg Neuts % (Manual) Lymphocytes % (Manual) Monocytes % (Manual) Eosinophils % (Manual) Basophils % (Manual) Nucleated RBC % Seg Neutrophils # Seg Neutrophils # Man Lymphocytes # (Manual) Monocytes # (Manual) Eosinophils # (Manual) PT INR Fibrinogen dRVVT Confirm Interp Factor V Activity POC ABG pH POC ABG pCO2 27.0 L POC ABG pO2 69 L ABG pO2 ABG HCO3 ABG Base Excess ABG Hemoglobin Oxyhemoglobin Sodium Potassium Chloride Carbon Dioxide BUN Creatinine Glucose POC Glucose 121 H 128 H Lactic Acid Calcium Phosphorus Magnesium Direct Bilirubin AST ALT Alkaline Phosphatase Lactate Dehydrogenase Troponin T C-Reactive Protein Total Protein Albumin Prealbumin Triglycerides Cholesterol LDL Cholesterol Direct HDL Cholesterol Urine pH Urine WBC (Auto) Urine Creatinine Urine Total Protein Fluid Total Protein Vancomycin Trough Rheumatoid Factor Complement C4 Miscellaneous Test Crossmatch 09/26/16 09/26/16 09/27/16 18:31 23:40 08:20 WBC RBC Hgb Hct MCV MCH MCHC RDW Plt Count Lymph % (Auto) [place] % (Auto) Lymph # [place] # Baso # Seg Neutrophils % Seg Neuts % (Manual) Lymphocytes % (Manual) Monocytes % (Manual) Eosinophils % (Manual) Basophils % (Manual) Nucleated RBC % Seg Neutrophils # Seg Neutrophils # Man Lymphocytes # (Manual) Monocytes # (Manual) Eosinophils # (Manual) PT INR Fibrinogen dRVVT Confirm Interp Factor V Activity POC ABG pH POC ABG pCO2 POC ABG pO2 ABG pO2 ABG HCO3 ABG Base Excess ABG Hemoglobin Oxyhemoglobin Sodium Potassium Chloride Carbon Dioxide BUN Creatinine Glucose POC Glucose 120 H 133 H Lactic Acid 4.10 H* Calcium Phosphorus Magnesium Direct Bilirubin AST ALT Alkaline Phosphatase Lactate Dehydrogenase Troponin T C-Reactive Protein Total Protein Albumin Prealbumin Triglycerides Cholesterol LDL Cholesterol Direct HDL Cholesterol Urine pH Urine WBC (Auto) Urine Creatinine Urine Total Protein Fluid Total Protein Vancomycin Trough Rheumatoid Factor Complement C4 Miscellaneous Test Crossmatch 09/27/16 09/27/16 09/27/16 11:23 15:00 18:15 WBC RBC Hgb Hct MCV MCH MCHC RDW Plt Count Lymph % (Auto) [place] % (Auto) Lymph # [place] # Baso # Seg Neutrophils % Seg Neuts % (Manual) Lymphocytes % (Manual) Monocytes % (Manual) Eosinophils % (Manual) Basophils % (Manual) Nucleated RBC % Seg Neutrophils # Seg Neutrophils # Man Lymphocytes # (Manual) Monocytes # (Manual) Eosinophils # (Manual) PT INR Fibrinogen dRVVT Confirm Interp Factor V Activity POC ABG pH 7.459 H POC ABG pCO2 27.1 L POC ABG pO2 140 H ABG pO2 ABG HCO3 ABG Base Excess ABG Hemoglobin Oxyhemoglobin Sodium Potassium Chloride Carbon Dioxide BUN Creatinine Glucose POC Glucose 114 H 127 H Lactic Acid Calcium Phosphorus Magnesium Direct Bilirubin AST ALT Alkaline Phosphatase Lactate Dehydrogenase Troponin T C-Reactive Protein Total Protein Albumin Prealbumin Triglycerides Cholesterol LDL Cholesterol Direct HDL Cholesterol Urine pH Urine WBC (Auto) Urine Creatinine Urine Total Protein Fluid Total Protein Vancomycin Trough Rheumatoid Factor Complement C4 Miscellaneous Test Crossmatch 09/27/16 09/27/16 09/28/16 Unknown Unknown 03:45 WBC RBC 2.49 L Hgb 6.8 L Hct 20.7 L MCV MCH 27 L MCHC RDW 22.1 H Plt Count Lymph % (Auto) [place] % (Auto) Lymph # [place] # Baso # Seg Neutrophils % Seg Neuts % (Manual) 32.0 L Lymphocytes % (Manual) 12.0 L Monocytes % (Manual) 11.0 H Eosinophils % (Manual) 10.0 H Basophils % (Manual) Nucleated RBC % Seg Neutrophils # Seg Neutrophils # Man Lymphocytes # (Manual) 1.0 L Monocytes # (Manual) 0.9 H Eosinophils # (Manual) 0.8 H PT INR Fibrinogen dRVVT Confirm Interp Factor V Activity POC ABG pH POC ABG pCO2 POC ABG pO2 ABG pO2 ABG HCO3 ABG Base Excess ABG Hemoglobin Oxyhemoglobin Sodium 135 L 135 L Potassium 3.5 L Chloride 93.6 L 94.4 L Carbon Dioxide 17 L 21 L BUN 45 H 28 H Creatinine 3.3 H 2.5 H Glucose 106 H POC Glucose Lactic Acid Calcium 7.3 L 7.1 L Phosphorus Magnesium Direct Bilirubin AST ALT Alkaline Phosphatase Lactate Dehydrogenase Troponin T C-Reactive Protein Total Protein Albumin Prealbumin Triglycerides Cholesterol LDL Cholesterol Direct HDL Cholesterol Urine pH Urine WBC (Auto) Urine Creatinine Urine Total Protein Fluid Total Protein Vancomycin Trough Rheumatoid Factor Complement C4 Miscellaneous Test Crossmatch 09/28/16 09/28/16 09/28/16 03:45 07:25 11:58 WBC 13.3 H RBC 3.01 L Hgb 8.4 L Hct 25.0 L MCV MCH MCHC RDW 20.5 H Plt Count 128 L Lymph % (Auto) [place] % (Auto) Lymph # [place] # Baso # Seg Neutrophils % Seg Neuts % (Manual) Lymphocytes % (Manual) 7.0 L Monocytes % (Manual) Eosinophils % (Manual) 6.0 H Basophils % (Manual) Nucleated RBC % Seg Neutrophils # Seg Neutrophils # Man Lymphocytes # (Manual) 0.9 L Monocytes # (Manual) Eosinophils # (Manual) 0.8 H PT INR Fibrinogen dRVVT Confirm Interp Factor V Activity POC ABG pH POC ABG pCO2 POC ABG pO2 ABG pO2 ABG HCO3 ABG Base Excess ABG Hemoglobin Oxyhemoglobin Sodium Potassium Chloride Carbon Dioxide BUN Creatinine Glucose POC Glucose 121 H Lactic Acid 4.50 H* Calcium Phosphorus Magnesium Direct Bilirubin AST ALT Alkaline Phosphatase Lactate Dehydrogenase Troponin T C-Reactive Protein Total Protein Albumin Prealbumin Triglycerides Cholesterol LDL Cholesterol Direct HDL Cholesterol Urine pH Urine WBC (Auto) Urine Creatinine Urine Total Protein Fluid Total Protein Vancomycin Trough Rheumatoid Factor Complement C4 Miscellaneous Test Crossmatch 09/29/16 09/29/16 09/29/16 06:45 06:45 06:45 WBC 14.9 H RBC 2.74 L Hgb 7.6 L Hct 23.2 L MCV MCH MCHC RDW 20.5 H Plt Count 81 L Lymph % (Auto) [place] % (Auto) Lymph # [place] # Baso # Seg Neutrophils % Seg Neuts % (Manual) 81.0 H Lymphocytes % (Manual) 4.0 L Monocytes % (Manual) Eosinophils % (Manual) Basophils % (Manual) Nucleated RBC % Seg Neutrophils # Seg Neutrophils # Man 12.1 H Lymphocytes # (Manual) 0.6 L Monocytes # (Manual) Eosinophils # (Manual) PT INR Fibrinogen dRVVT Confirm Interp Factor V Activity POC ABG pH POC ABG pCO2 POC ABG pO2 ABG pO2 ABG HCO3 ABG Base Excess ABG Hemoglobin Oxyhemoglobin Sodium 133 L Potassium 3.4 L Chloride 92.5 L Carbon Dioxide 21 L BUN 33 H Creatinine 3.0 H Glucose POC Glucose Lactic Acid Calcium 6.6 L Phosphorus Magnesium 1.40 L Direct Bilirubin 0.9 H AST ALT Alkaline Phosphatase Lactate Dehydrogenase Troponin T C-Reactive Protein Total Protein 4.3 L Albumin 1.3 L Prealbumin Triglycerides Cholesterol LDL Cholesterol Direct HDL Cholesterol Urine pH Urine WBC (Auto) Urine Creatinine Urine Total Protein Fluid Total Protein Vancomycin Trough Rheumatoid Factor Complement C4 Miscellaneous Test Crossmatch 09/29/16 09/29/16 09/30/16 17:52 20:12 00:07 WBC RBC Hgb Hct MCV MCH MCHC RDW Plt Count Lymph % (Auto) [place] % (Auto) Lymph # [place] # Baso # Seg Neutrophils % Seg Neuts % (Manual) Lymphocytes % (Manual) Monocytes % (Manual) Eosinophils % (Manual) Basophils % (Manual) Nucleated RBC % Seg Neutrophils # Seg Neutrophils # Man Lymphocytes # (Manual) Monocytes # (Manual) Eosinophils # (Manual) PT INR Fibrinogen dRVVT Confirm Interp Factor V Activity POC ABG pH POC ABG pCO2 POC ABG pO2 ABG pO2 ABG HCO3 ABG Base Excess ABG Hemoglobin Oxyhemoglobin Sodium Potassium Chloride Carbon Dioxide BUN Creatinine Glucose POC Glucose 50 L 51 L Lactic Acid Calcium Phosphorus Magnesium Direct Bilirubin AST ALT Alkaline Phosphatase Lactate Dehydrogenase Troponin T 0.204 H* C-Reactive Protein Total Protein Albumin Prealbumin Triglycerides Cholesterol 31 L LDL Cholesterol Direct 4 L HDL Cholesterol 3 L Urine pH Urine WBC (Auto) Urine Creatinine Urine Total Protein Fluid Total Protein Vancomycin Trough Rheumatoid Factor Complement C4 Miscellaneous Test Crossmatch 09/30/16 09/30/16 09/30/16 01:30 05:15 06:10 WBC RBC Hgb Hct MCV MCH MCHC RDW Plt Count Lymph % (Auto) [place] % (Auto) Lymph # [place] # Baso # Seg Neutrophils % Seg Neuts % (Manual) Lymphocytes % (Manual) Monocytes % (Manual) Eosinophils % (Manual) Basophils % (Manual) Nucleated RBC % Seg Neutrophils # Seg Neutrophils # Man Lymphocytes # (Manual) Monocytes # (Manual) Eosinophils # (Manual) PT INR Fibrinogen dRVVT Confirm Interp Factor V Activity POC ABG pH POC ABG pCO2 POC ABG pO2 ABG pO2 ABG HCO3 ABG Base Excess ABG Hemoglobin Oxyhemoglobin Sodium 133 L Potassium 3.2 L Chloride 93.2 L Carbon Dioxide 19 L BUN 36 H Creatinine 3.2 H Glucose 104 H POC Glucose 167 H 146 H Lactic Acid Calcium 6.4 L Phosphorus Magnesium 1.60 L Direct Bilirubin AST ALT Alkaline Phosphatase Lactate Dehydrogenase Troponin T C-Reactive Protein Total Protein Albumin Prealbumin Triglycerides Cholesterol LDL Cholesterol Direct HDL Cholesterol Urine pH Urine WBC (Auto) Urine Creatinine Urine Total Protein Fluid Total Protein Vancomycin Trough Rheumatoid Factor Complement C4 Miscellaneous Test Crossmatch 09/30/16 09/30/16 09/30/16 11:26 13:39 18:38 WBC RBC Hgb Hct MCV MCH MCHC RDW Plt Count Lymph % (Auto) [place] % (Auto) Lymph # [place] # Baso # Seg Neutrophils % Seg Neuts % (Manual) Lymphocytes % (Manual) Monocytes % (Manual) Eosinophils % (Manual) Basophils % (Manual) Nucleated RBC % Seg Neutrophils # Seg Neutrophils # Man Lymphocytes # (Manual) Monocytes # (Manual) Eosinophils # (Manual) PT INR Fibrinogen dRVVT Confirm Interp Factor V Activity POC ABG pH 7.479 H POC ABG pCO2 29.8 L POC ABG pO2 117 H ABG pO2 ABG HCO3 ABG Base Excess ABG Hemoglobin Oxyhemoglobin Sodium Potassium Chloride Carbon Dioxide BUN Creatinine Glucose POC Glucose 140 H 122 H Lactic Acid Calcium Phosphorus Magnesium Direct Bilirubin AST ALT Alkaline Phosphatase Lactate Dehydrogenase Troponin T C-Reactive Protein Total Protein Albumin Prealbumin Triglycerides Cholesterol LDL Cholesterol Direct HDL Cholesterol Urine pH Urine WBC (Auto) Urine Creatinine Urine Total Protein Fluid Total Protein Vancomycin Trough Rheumatoid Factor Complement C4 Miscellaneous Test Crossmatch 10/01/16 10/01/16 10/01/16 06:00 06:00 12:37 WBC 12.6 H RBC 2.75 L Hgb 7.3 L Hct 23.3 L MCV MCH 27 L MCHC RDW 20.6 H Plt Count 72 L Lymph % (Auto) [place] % (Auto) Lymph # [place] # Baso # Seg Neutrophils % Seg Neuts % (Manual) 31.0 L Lymphocytes % (Manual) 8.0 L Monocytes % (Manual) Eosinophils % (Manual) Basophils % (Manual) Nucleated RBC % 3.0 H Seg Neutrophils # Seg Neutrophils # Man Lymphocytes # (Manual) 1.0 L Monocytes # (Manual) Eosinophils # (Manual) PT INR Fibrinogen dRVVT Confirm Interp Factor V Activity POC ABG pH POC ABG pCO2 POC ABG pO2 ABG pO2 ABG HCO3 ABG Base Excess ABG Hemoglobin Oxyhemoglobin Sodium 127 L Potassium Chloride 86.8 L Carbon Dioxide 20 L BUN 42 H Creatinine 3.5 H Glucose POC Glucose 65 L Lactic Acid Calcium 7.0 L Phosphorus Magnesium Direct Bilirubin AST ALT Alkaline Phosphatase Lactate Dehydrogenase Troponin T C-Reactive Protein Total Protein Albumin Prealbumin Triglycerides Cholesterol LDL Cholesterol Direct HDL Cholesterol Urine pH Urine WBC (Auto) Urine Creatinine Urine Total Protein Fluid Total Protein Vancomycin Trough Rheumatoid Factor Complement C4 Miscellaneous Test Crossmatch 10/01/16 10/01/16 10/02/16 17:39 23:32 00:59 WBC RBC Hgb Hct MCV MCH MCHC RDW Plt Count Lymph % (Auto) [place] % (Auto) Lymph # [place] # Baso # Seg Neutrophils % Seg Neuts % (Manual) Lymphocytes % (Manual) Monocytes % (Manual) Eosinophils % (Manual) Basophils % (Manual) Nucleated RBC % Seg Neutrophils # Seg Neutrophils # Man Lymphocytes # (Manual) Monocytes # (Manual) Eosinophils # (Manual) PT INR Fibrinogen dRVVT Confirm Interp Factor V Activity POC ABG pH POC ABG pCO2 POC ABG pO2 ABG pO2 ABG HCO3 ABG Base Excess ABG Hemoglobin Oxyhemoglobin Sodium Potassium Chloride Carbon Dioxide BUN Creatinine Glucose POC Glucose 107 H 52 L 145 H Lactic Acid Calcium Phosphorus Magnesium Direct Bilirubin AST ALT Alkaline Phosphatase Lactate Dehydrogenase Troponin T C-Reactive Protein Total Protein Albumin Prealbumin Triglycerides Cholesterol LDL Cholesterol Direct HDL Cholesterol Urine pH Urine WBC (Auto) Urine Creatinine Urine Total Protein Fluid Total Protein Vancomycin Trough Rheumatoid Factor Complement C4 Miscellaneous Test Crossmatch 10/02/16 10/02/16 10/02/16 10:30 10:50 10:50 WBC 14.7 H RBC 2.76 L Hgb 7.4 L Hct 23.6 L MCV MCH 27 L MCHC RDW 20.2 H Plt Count 79 L Lymph % (Auto) [place] % (Auto) Lymph # [place] # Baso # Seg Neutrophils % Seg Neuts % (Manual) 86.0 H Lymphocytes % (Manual) 6.0 L Monocytes % (Manual) Eosinophils % (Manual) Basophils % (Manual) Nucleated RBC % Seg Neutrophils # Seg Neutrophils # Man 12.6 H Lymphocytes # (Manual) 0.9 L Monocytes # (Manual) Eosinophils # (Manual) PT INR Fibrinogen dRVVT Confirm Interp Factor V Activity POC ABG pH 7.486 H POC ABG pCO2 30.1 L POC ABG pO2 108 H ABG pO2 ABG HCO3 ABG Base Excess ABG Hemoglobin Oxyhemoglobin Sodium 131 L Potassium 3.4 L Chloride 89.9 L Carbon Dioxide BUN 26 H Creatinine 2.6 H Glucose POC Glucose Lactic Acid Calcium 7.0 L Phosphorus Magnesium Direct Bilirubin AST ALT Alkaline Phosphatase Lactate Dehydrogenase Troponin T C-Reactive Protein Total Protein Albumin Prealbumin Triglycerides Cholesterol LDL Cholesterol Direct HDL Cholesterol Urine pH Urine WBC (Auto) Urine Creatinine Urine Total Protein Fluid Total Protein Vancomycin Trough Rheumatoid Factor Complement C4 Miscellaneous Test Crossmatch 10/02/16 10/03/16 10/03/16 23:45 00:45 05:10 WBC 12.9 H RBC 2.77 L Hgb 7.6 L Hct 23.7 L MCV MCH 27 L MCHC RDW 19.7 H Plt Count 89 L Lymph % (Auto) [place] % (Auto) Lymph # [place] # Baso # Seg Neutrophils % Seg Neuts % (Manual) Lymphocytes % (Manual) 8.0 L Monocytes % (Manual) Eosinophils % (Manual) Basophils % (Manual) Nucleated RBC % Seg Neutrophils # 11.9 H Seg Neutrophils # Man Lymphocytes # (Manual) 1.0 L Monocytes # (Manual) Eosinophils # (Manual) PT INR Fibrinogen dRVVT Confirm Interp Factor V Activity POC ABG pH POC ABG pCO2 POC ABG pO2 ABG pO2 ABG HCO3 ABG Base Excess ABG Hemoglobin Oxyhemoglobin Sodium Potassium Chloride Carbon Dioxide BUN Creatinine Glucose POC Glucose 55 L 199 H Lactic Acid Calcium Phosphorus Magnesium Direct Bilirubin AST ALT Alkaline Phosphatase Lactate Dehydrogenase Troponin T C-Reactive Protein Total Protein Albumin Prealbumin Triglycerides Cholesterol LDL Cholesterol Direct HDL Cholesterol Urine pH Urine WBC (Auto) Urine Creatinine Urine Total Protein Fluid Total Protein Vancomycin Trough Rheumatoid Factor Complement C4 Miscellaneous Test Crossmatch 10/03/16 10/03/16 10/03/16 05:10 12:14 13:18 WBC RBC Hgb Hct MCV MCH MCHC RDW Plt Count Lymph % (Auto) [place] % (Auto) Lymph # [place] # Baso # Seg Neutrophils % Seg Neuts % (Manual) Lymphocytes % (Manual) Monocytes % (Manual) Eosinophils % (Manual) Basophils % (Manual) Nucleated RBC % Seg Neutrophils # Seg Neutrophils # Man Lymphocytes # (Manual) Monocytes # (Manual) Eosinophils # (Manual) PT INR Fibrinogen dRVVT Confirm Interp Factor V Activity POC ABG pH POC ABG pCO2 POC ABG pO2 ABG pO2 ABG HCO3 ABG Base Excess ABG Hemoglobin Oxyhemoglobin Sodium 129 L Potassium 3.3 L Chloride 88.8 L Carbon Dioxide 20 L BUN 29 H Creatinine 2.8 H Glucose POC Glucose 68 L 127 H Lactic Acid Calcium 7.2 L Phosphorus Magnesium Direct Bilirubin AST ALT Alkaline Phosphatase Lactate Dehydrogenase Troponin T C-Reactive Protein Total Protein Albumin Prealbumin Triglycerides Cholesterol LDL Cholesterol Direct HDL Cholesterol Urine pH Urine WBC (Auto) Urine Creatinine Urine Total Protein Fluid Total Protein Vancomycin Trough Rheumatoid Factor Complement C4 Miscellaneous Test Crossmatch 10/03/16 10/03/16 10/03/16 14:42 18:21 19:09 WBC RBC Hgb Hct MCV MCH MCHC RDW Plt Count Lymph % (Auto) [place] % (Auto) Lymph # [place] # Baso # Seg Neutrophils % Seg Neuts % (Manual) Lymphocytes % (Manual) Monocytes % (Manual) Eosinophils % (Manual) Basophils % (Manual) Nucleated RBC % Seg Neutrophils # Seg Neutrophils # Man Lymphocytes # (Manual) Monocytes # (Manual) Eosinophils # (Manual) PT INR Fibrinogen dRVVT Confirm Interp Factor V Activity POC ABG pH 7.499 H POC ABG pCO2 28.4 L POC ABG pO2 44 L ABG pO2 ABG HCO3 ABG Base Excess ABG Hemoglobin Oxyhemoglobin Sodium Potassium Chloride Carbon Dioxide BUN Creatinine Glucose POC Glucose 64 L 205 H Lactic Acid Calcium Phosphorus Magnesium Direct Bilirubin AST ALT Alkaline Phosphatase Lactate Dehydrogenase Troponin T C-Reactive Protein Total Protein Albumin Prealbumin Triglycerides Cholesterol LDL Cholesterol Direct HDL Cholesterol Urine pH Urine WBC (Auto) Urine Creatinine Urine Total Protein Fluid Total Protein Vancomycin Trough Rheumatoid Factor Complement C4 Miscellaneous Test Crossmatch 10/03/16 10/04/16 10/04/16 23:33 04:18 06:30 WBC RBC 2.54 L Hgb 7.1 L Hct 21.7 L MCV MCH MCHC RDW 19.5 H Plt Count 76 L Lymph % (Auto) [place] % (Auto) Lymph # [place] # Baso # Seg Neutrophils % Seg Neuts % (Manual) 88.0 H Lymphocytes % (Manual) 6.0 L Monocytes % (Manual) Eosinophils % (Manual) Basophils % (Manual) Nucleated RBC % Seg Neutrophils # Seg Neutrophils # Man 8.8 H Lymphocytes # (Manual) 0.6 L Monocytes # (Manual) Eosinophils # (Manual) PT INR Fibrinogen dRVVT Confirm Interp Factor V Activity POC ABG pH 7.461 H POC ABG pCO2 33.6 L POC ABG pO2 211 H ABG pO2 ABG HCO3 ABG Base Excess ABG Hemoglobin Oxyhemoglobin Sodium Potassium Chloride Carbon Dioxide BUN Creatinine Glucose POC Glucose 136 H Lactic Acid Calcium Phosphorus Magnesium Direct Bilirubin AST ALT Alkaline Phosphatase Lactate Dehydrogenase Troponin T C-Reactive Protein Total Protein Albumin Prealbumin Triglycerides Cholesterol LDL Cholesterol Direct HDL Cholesterol Urine pH Urine WBC (Auto) Urine Creatinine Urine Total Protein Fluid Total Protein Vancomycin Trough Rheumatoid Factor Complement C4 Miscellaneous Test Crossmatch 10/04/16 10/04/16 10/04/16 06:30 11:45 17:54 WBC RBC Hgb Hct MCV MCH MCHC RDW Plt Count Lymph % (Auto) [place] % (Auto) Lymph # [place] # Baso # Seg Neutrophils % Seg Neuts % (Manual) Lymphocytes % (Manual) Monocytes % (Manual) Eosinophils % (Manual) Basophils % (Manual) Nucleated RBC % Seg Neutrophils # Seg Neutrophils # Man Lymphocytes # (Manual) Monocytes # (Manual) Eosinophils # (Manual) PT INR Fibrinogen dRVVT Confirm Interp Factor V Activity POC ABG pH POC ABG pCO2 POC ABG pO2 ABG pO2 ABG HCO3 ABG Base Excess ABG Hemoglobin Oxyhemoglobin Sodium 128 L Potassium Chloride 87.4 L Carbon Dioxide 20 L BUN 34 H Creatinine 2.9 H Glucose 127 H POC Glucose 158 H 160 H Lactic Acid Calcium 7.4 L Phosphorus Magnesium Direct Bilirubin AST ALT Alkaline Phosphatase Lactate Dehydrogenase Troponin T C-Reactive Protein Total Protein Albumin Prealbumin Triglycerides Cholesterol LDL Cholesterol Direct HDL Cholesterol Urine pH Urine WBC (Auto) Urine Creatinine Urine Total Protein Fluid Total Protein Vancomycin Trough Rheumatoid Factor Complement C4 Miscellaneous Test Crossmatch 10/04/16 10/05/16 10/05/16 23:25 04:30 05:00 WBC RBC 2.64 L Hgb 7.5 L Hct 22.6 L MCV MCH MCHC RDW 19.3 H Plt Count 80 L Lymph % (Auto) [place] % (Auto) Lymph # [place] # Baso # Seg Neutrophils % Seg Neuts % (Manual) Lymphocytes % (Manual) 12.0 L Monocytes % (Manual) Eosinophils % (Manual) Basophils % (Manual) Nucleated RBC % Seg Neutrophils # Seg Neutrophils # Man Lymphocytes # (Manual) Monocytes # (Manual) Eosinophils # (Manual) PT INR Fibrinogen dRVVT Confirm Interp Factor V Activity POC ABG pH 7.475 H POC ABG pCO2 33.3 L POC ABG pO2 140 H ABG pO2 ABG HCO3 ABG Base Excess ABG Hemoglobin Oxyhemoglobin Sodium Potassium Chloride Carbon Dioxide BUN Creatinine Glucose POC Glucose 141 H Lactic Acid Calcium Phosphorus Magnesium Direct Bilirubin AST ALT Alkaline Phosphatase Lactate Dehydrogenase Troponin T C-Reactive Protein Total Protein Albumin Prealbumin Triglycerides Cholesterol LDL Cholesterol Direct HDL Cholesterol Urine pH Urine WBC (Auto) Urine Creatinine Urine Total Protein Fluid Total Protein Vancomycin Trough Rheumatoid Factor Complement C4 Miscellaneous Test Crossmatch 10/05/16 10/05/16 10/05/16 05:00 05:09 12:58 WBC RBC Hgb Hct MCV MCH MCHC RDW Plt Count Lymph % (Auto) [place] % (Auto) Lymph # [place] # Baso # Seg Neutrophils % Seg Neuts % (Manual) Lymphocytes % (Manual) Monocytes % (Manual) Eosinophils % (Manual) Basophils % (Manual) Nucleated RBC % Seg Neutrophils # Seg Neutrophils # Man Lymphocytes # (Manual) Monocytes # (Manual) Eosinophils # (Manual) PT INR Fibrinogen dRVVT Confirm Interp Factor V Activity POC ABG pH POC ABG pCO2 POC ABG pO2 ABG pO2 ABG HCO3 ABG Base Excess ABG Hemoglobin Oxyhemoglobin Sodium 131 L Potassium Chloride 94.0 L Carbon Dioxide 20 L BUN 22 H Creatinine 2.0 H Glucose 123 H POC Glucose 166 H 179 H Lactic Acid Calcium 7.7 L Phosphorus 2.20 L D Magnesium Direct Bilirubin AST ALT Alkaline Phosphatase Lactate Dehydrogenase Troponin T C-Reactive Protein Total Protein Albumin Prealbumin Triglycerides Cholesterol LDL Cholesterol Direct HDL Cholesterol Urine pH Urine WBC (Auto) Urine Creatinine Urine Total Protein Fluid Total Protein Vancomycin Trough Rheumatoid Factor Complement C4 Miscellaneous Test Crossmatch 10/05/16 10/05/16 10/05/16 15:50 18:53 23:12 WBC RBC Hgb Hct MCV MCH MCHC RDW Plt Count Lymph % (Auto) [place] % (Auto) Lymph # [place] # Baso # Seg Neutrophils % Seg Neuts % (Manual) Lymphocytes % (Manual) Monocytes % (Manual) Eosinophils % (Manual) Basophils % (Manual) Nucleated RBC % Seg Neutrophils # Seg Neutrophils # Man Lymphocytes # (Manual) Monocytes # (Manual) Eosinophils # (Manual) PT INR Fibrinogen dRVVT Confirm Interp Factor V Activity POC ABG pH POC ABG pCO2 POC ABG pO2 ABG pO2 ABG HCO3 ABG Base Excess ABG Hemoglobin Oxyhemoglobin Sodium Potassium Chloride Carbon Dioxide BUN Creatinine Glucose POC Glucose 150 H 164 H Lactic Acid Calcium Phosphorus Magnesium Direct Bilirubin AST ALT Alkaline Phosphatase Lactate Dehydrogenase Troponin T C-Reactive Protein Total Protein Albumin Prealbumin Triglycerides Cholesterol LDL Cholesterol Direct HDL Cholesterol Urine pH Urine WBC (Auto) Urine Creatinine Urine Total Protein Fluid Total Protein Vancomycin Trough Rheumatoid Factor Complement C4 Miscellaneous Test Crossmatch See Detail 10/06/16 10/06/16 10/06/16 03:50 03:50 04:53 WBC RBC 3.00 L Hgb 8.6 L Hct 25.8 L MCV MCH MCHC RDW 17.9 H Plt Count 65 L Lymph % (Auto) [place] % (Auto) Lymph # [place] # Baso # Seg Neutrophils % Seg Neuts % (Manual) 30.0 L Lymphocytes % (Manual) 5.0 L Monocytes % (Manual) Eosinophils % (Manual) Basophils % (Manual) Nucleated RBC % Seg Neutrophils # Seg Neutrophils # Man Lymphocytes # (Manual) 0.4 L Monocytes # (Manual) Eosinophils # (Manual) PT INR Fibrinogen dRVVT Confirm Interp Factor V Activity POC ABG pH 7.310 L POC ABG pCO2 49.0 H POC ABG pO2 ABG pO2 ABG HCO3 ABG Base Excess ABG Hemoglobin Oxyhemoglobin Sodium 133 L Potassium Chloride 95.9 L Carbon Dioxide BUN 26 H Creatinine 2.0 H Glucose 116 H POC Glucose Lactic Acid Calcium 7.8 L Phosphorus Magnesium Direct Bilirubin AST ALT Alkaline Phosphatase Lactate Dehydrogenase Troponin T C-Reactive Protein Total Protein Albumin Prealbumin Triglycerides Cholesterol LDL Cholesterol Direct HDL Cholesterol Urine pH Urine WBC (Auto) Urine Creatinine Urine Total Protein Fluid Total Protein Vancomycin Trough Rheumatoid Factor Complement C4 Miscellaneous Test Crossmatch 10/06/16 10/06/16 10/06/16 05:23 11:52 18:34 WBC RBC Hgb Hct MCV MCH MCHC RDW Plt Count Lymph % (Auto) [place] % (Auto) Lymph # [place] # Baso # Seg Neutrophils % Seg Neuts % (Manual) Lymphocytes % (Manual) Monocytes % (Manual) Eosinophils % (Manual) Basophils % (Manual) Nucleated RBC % Seg Neutrophils # Seg Neutrophils # Man Lymphocytes # (Manual) Monocytes # (Manual) Eosinophils # (Manual) PT INR Fibrinogen dRVVT Confirm Interp Factor V Activity POC ABG pH POC ABG pCO2 POC ABG pO2 ABG pO2 ABG HCO3 ABG Base Excess ABG Hemoglobin Oxyhemoglobin Sodium Potassium Chloride Carbon Dioxide BUN Creatinine Glucose POC Glucose 126 H 116 H 129 H Lactic Acid Calcium Phosphorus Magnesium Direct Bilirubin AST ALT Alkaline Phosphatase Lactate Dehydrogenase Troponin T C-Reactive Protein Total Protein Albumin Prealbumin Triglycerides Cholesterol LDL Cholesterol Direct HDL Cholesterol Urine pH Urine WBC (Auto) Urine Creatinine Urine Total Protein Fluid Total Protein Vancomycin Trough Rheumatoid Factor Complement C4 Miscellaneous Test Crossmatch 10/07/16 10/07/16 10/07/16 03:45 05:00 10:00 WBC 17.0 H RBC 2.68 L Hgb 7.3 L Hct 25.3 L MCV MCH 27 L MCHC 29 L RDW 19.6 H Plt Count 74 L Lymph % (Auto) [place] % (Auto) Lymph # [place] # Baso # Seg Neutrophils % Seg Neuts % (Manual) Lymphocytes % (Manual) 12.0 L Monocytes % (Manual) Eosinophils % (Manual) Basophils % (Manual) Nucleated RBC % 4.0 H Seg Neutrophils # Seg Neutrophils # Man 10.7 H Lymphocytes # (Manual) Monocytes # (Manual) Eosinophils # (Manual) PT INR Fibrinogen dRVVT Confirm Interp Factor V Activity POC ABG pH POC ABG pCO2 POC ABG pO2 ABG pO2 ABG HCO3 ABG Base Excess ABG Hemoglobin Oxyhemoglobin Sodium 130 L Potassium 3.2 L Chloride 93.9 L Carbon Dioxide 20 L BUN 44 H Creatinine 2.7 H Glucose 129 H POC Glucose Lactic Acid Calcium 7.4 L Phosphorus Magnesium Direct Bilirubin AST ALT 6 L Alkaline Phosphatase 195 H Lactate Dehydrogenase Troponin T C-Reactive Protein Total Protein 4.9 L Albumin 1.0 L Prealbumin Triglycerides Cholesterol LDL Cholesterol Direct HDL Cholesterol Urine pH Urine WBC (Auto) Urine Creatinine Urine Total Protein Fluid Total Protein Vancomycin Trough Rheumatoid Factor Complement C4 Miscellaneous Test Flexitest 1 H Crossmatch 10/07/16 10/07/16 10/07/16 10:00 11:24 18:10 WBC RBC Hgb Hct MCV MCH MCHC RDW Plt Count Lymph % (Auto) [place] % (Auto) Lymph # [place] # Baso # Seg Neutrophils % Seg Neuts % (Manual) Lymphocytes % (Manual) Monocytes % (Manual) Eosinophils % (Manual) Basophils % (Manual) Nucleated RBC % Seg Neutrophils # Seg Neutrophils # Man Lymphocytes # (Manual) Monocytes # (Manual) Eosinophils # (Manual) PT INR Fibrinogen dRVVT Confirm Interp Factor V Activity POC ABG pH POC ABG pCO2 POC ABG pO2 ABG pO2 ABG HCO3 ABG Base Excess ABG Hemoglobin Oxyhemoglobin Sodium Potassium Chloride Carbon Dioxide BUN Creatinine Glucose POC Glucose 116 H 130 H Lactic Acid Calcium Phosphorus Magnesium Direct Bilirubin AST ALT Alkaline Phosphatase Lactate Dehydrogenase Troponin T C-Reactive Protein 19.40 H Total Protein Albumin Prealbumin Triglycerides Cholesterol LDL Cholesterol Direct HDL Cholesterol Urine pH Urine WBC (Auto) Urine Creatinine Urine Total Protein Fluid Total Protein Vancomycin Trough Rheumatoid Factor Complement C4 Miscellaneous Test Crossmatch 10/07/16 10/08/16 10/08/16 18:30 00:00 04:00 WBC RBC Hgb Hct MCV MCH MCHC RDW Plt Count Lymph % (Auto) [place] % (Auto) Lymph # [place] # Baso # Seg Neutrophils % Seg Neuts % (Manual) Lymphocytes % (Manual) Monocytes % (Manual) Eosinophils % (Manual) Basophils % (Manual) Nucleated RBC % Seg Neutrophils # Seg Neutrophils # Man Lymphocytes # (Manual) Monocytes # (Manual) Eosinophils # (Manual) PT INR Fibrinogen dRVVT Confirm Interp Factor V Activity POC ABG pH POC ABG pCO2 POC ABG pO2 ABG pO2 ABG HCO3 ABG Base Excess ABG Hemoglobin Oxyhemoglobin Sodium 132 L Potassium 3.3 L Chloride 93.6 L Carbon Dioxide 17 L BUN 59 H Creatinine 2.7 H Glucose 121 H POC Glucose 122 H Lactic Acid Calcium 7.6 L Phosphorus Magnesium Direct Bilirubin AST ALT Alkaline Phosphatase Lactate Dehydrogenase Troponin T C-Reactive Protein Total Protein Albumin Prealbumin Triglycerides Cholesterol LDL Cholesterol Direct HDL Cholesterol Urine pH Urine WBC (Auto) > 182.0 H Urine Creatinine Urine Total Protein Fluid Total Protein Vancomycin Trough Rheumatoid Factor Complement C4 Miscellaneous Test Crossmatch 10/08/16 10/08/16 10/08/16 04:30 05:30 11:51 WBC RBC 5.15 H Hgb 14.4 H D Hct 44.5 H D MCV MCH MCHC RDW 19.5 H Plt Count 56 L Lymph % (Auto) [place] % (Auto) Lymph # [place] # Baso # Seg Neutrophils % Seg Neuts % (Manual) 24.0 L Lymphocytes % (Manual) 8.0 L Monocytes % (Manual) Eosinophils % (Manual) Basophils % (Manual) Nucleated RBC % 9.0 H Seg Neutrophils # Seg Neutrophils # Man Lymphocytes # (Manual) 0.7 L Monocytes # (Manual) Eosinophils # (Manual) PT INR Fibrinogen dRVVT Confirm Interp Factor V Activity POC ABG pH POC ABG pCO2 POC ABG pO2 ABG pO2 ABG HCO3 ABG Base Excess ABG Hemoglobin Oxyhemoglobin Sodium Potassium Chloride Carbon Dioxide BUN Creatinine Glucose POC Glucose 125 H 150 H Lactic Acid Calcium Phosphorus Magnesium Direct Bilirubin AST ALT Alkaline Phosphatase Lactate Dehydrogenase Troponin T C-Reactive Protein Total Protein Albumin Prealbumin Triglycerides Cholesterol LDL Cholesterol Direct HDL Cholesterol Urine pH Urine WBC (Auto) Urine Creatinine Urine Total Protein Fluid Total Protein Vancomycin Trough Rheumatoid Factor Complement C4 Miscellaneous Test Crossmatch 10/08/16 10/08/16 10/08/16 12:49 17:07 19:30 WBC RBC Hgb 7.1 L D Hct 22.4 L D MCV MCH MCHC RDW Plt Count Lymph % (Auto) [place] % (Auto) Lymph # [place] # Baso # Seg Neutrophils % Seg Neuts % (Manual) Lymphocytes % (Manual) Monocytes % (Manual) Eosinophils % (Manual) Basophils % (Manual) Nucleated RBC % Seg Neutrophils # Seg Neutrophils # Man Lymphocytes # (Manual) Monocytes # (Manual) Eosinophils # (Manual) PT INR Fibrinogen dRVVT Confirm Interp Factor V Activity POC ABG pH POC ABG pCO2 28.2 L POC ABG pO2 111 H ABG pO2 ABG HCO3 ABG Base Excess ABG Hemoglobin Oxyhemoglobin Sodium Potassium Chloride Carbon Dioxide BUN Creatinine Glucose POC Glucose 145 H Lactic Acid Calcium Phosphorus Magnesium Direct Bilirubin AST ALT Alkaline Phosphatase Lactate Dehydrogenase Troponin T C-Reactive Protein Total Protein Albumin Prealbumin Triglycerides Cholesterol LDL Cholesterol Direct HDL Cholesterol Urine pH Urine WBC (Auto) Urine Creatinine Urine Total Protein Fluid Total Protein Vancomycin Trough Rheumatoid Factor Complement C4 Miscellaneous Test Crossmatch 10/08/16 10/09/16 10/09/16 19:30 03:45 03:45 WBC 12.6 H RBC 2.36 L Hgb 6.7 L Hct 21.1 L MCV MCH MCHC RDW 19.5 H Plt Count 75 L Lymph % (Auto) [place] % (Auto) Lymph # [place] # Baso # Seg Neutrophils % Seg Neuts % (Manual) Lymphocytes % (Manual) Monocytes % (Manual) 10.0 H Eosinophils % (Manual) Basophils % (Manual) Nucleated RBC % 3.0 H Seg Neutrophils # Seg Neutrophils # Man Lymphocytes # (Manual) Monocytes # (Manual) 1.3 H Eosinophils # (Manual) PT 18.0 H INR 1.41 H Fibrinogen dRVVT Confirm Interp Factor V Activity POC ABG pH POC ABG pCO2 POC ABG pO2 ABG pO2 ABG HCO3 ABG Base Excess ABG Hemoglobin Oxyhemoglobin Sodium 135 L Potassium Chloride Carbon Dioxide 17 L BUN 81 H Creatinine 3.2 H Glucose 109 H POC Glucose Lactic Acid Calcium 7.4 L Phosphorus 4.60 H D Magnesium Direct Bilirubin AST ALT Alkaline Phosphatase Lactate Dehydrogenase Troponin T C-Reactive Protein Total Protein Albumin Prealbumin Triglycerides Cholesterol LDL Cholesterol Direct HDL Cholesterol Urine pH Urine WBC (Auto) Urine Creatinine Urine Total Protein Fluid Total Protein Vancomycin Trough Rheumatoid Factor Complement C4 Miscellaneous Test Crossmatch 10/09/16 10/09/16 10/09/16 03:45 05:14 07:20 WBC RBC Hgb Hct MCV MCH MCHC RDW Plt Count Lymph % (Auto) [place] % (Auto) Lymph # [place] # Baso # Seg Neutrophils % Seg Neuts % (Manual) Lymphocytes % (Manual) Monocytes % (Manual) Eosinophils % (Manual) Basophils % (Manual) Nucleated RBC % Seg Neutrophils # Seg Neutrophils # Man Lymphocytes # (Manual) Monocytes # (Manual) Eosinophils # (Manual) PT 19.0 H INR 1.51 H Fibrinogen dRVVT Confirm Interp Factor V Activity POC ABG pH POC ABG pCO2 POC ABG pO2 ABG pO2 ABG HCO3 ABG Base Excess ABG Hemoglobin Oxyhemoglobin Sodium Potassium Chloride Carbon Dioxide BUN Creatinine Glucose POC Glucose 151 H Lactic Acid Calcium Phosphorus Magnesium Direct Bilirubin AST ALT Alkaline Phosphatase Lactate Dehydrogenase Troponin T C-Reactive Protein Total Protein Albumin Prealbumin Triglycerides Cholesterol LDL Cholesterol Direct HDL Cholesterol Urine pH Urine WBC (Auto) Urine Creatinine Urine Total Protein Fluid Total Protein Vancomycin Trough Rheumatoid Factor Complement C4 Miscellaneous Test Crossmatch See Detail 10/09/16 10/09/16 10/09/16 11:46 16:20 16:43 WBC RBC Hgb 7.2 L Hct 22.2 L MCV MCH MCHC RDW Plt Count Lymph % (Auto) [place] % (Auto) Lymph # [place] # Baso # Seg Neutrophils % Seg Neuts % (Manual) Lymphocytes % (Manual) Monocytes % (Manual) Eosinophils % (Manual) Basophils % (Manual) Nucleated RBC % Seg Neutrophils # Seg Neutrophils # Man Lymphocytes # (Manual) Monocytes # (Manual) Eosinophils # (Manual) PT INR Fibrinogen dRVVT Confirm Interp Factor V Activity POC ABG pH POC ABG pCO2 POC ABG pO2 ABG pO2 ABG HCO3 ABG Base Excess ABG Hemoglobin Oxyhemoglobin Sodium Potassium Chloride Carbon Dioxide BUN Creatinine Glucose POC Glucose 133 H 141 H Lactic Acid Calcium Phosphorus Magnesium Direct Bilirubin AST ALT Alkaline Phosphatase Lactate Dehydrogenase Troponin T C-Reactive Protein Total Protein Albumin Prealbumin Triglycerides Cholesterol LDL Cholesterol Direct HDL Cholesterol Urine pH Urine WBC (Auto) Urine Creatinine Urine Total Protein Fluid Total Protein Vancomycin Trough Rheumatoid Factor Complement C4 Miscellaneous Test Crossmatch 10/10/16 10/10/16 10/10/16 05:00 05:00 11:19 WBC 18.5 H RBC 2.19 L Hgb 6.4 L Hct 19.6 L* MCV MCH MCHC RDW 19.3 H Plt Count 93 L Lymph % (Auto) [place] % (Auto) Lymph # [place] # Baso # Seg Neutrophils % Seg Neuts % (Manual) Lymphocytes % (Manual) 10.0 L Monocytes % (Manual) Eosinophils % (Manual) Basophils % (Manual) Nucleated RBC % 4.0 H Seg Neutrophils # Seg Neutrophils # Man 11.3 H Lymphocytes # (Manual) Monocytes # (Manual) Eosinophils # (Manual) PT INR Fibrinogen dRVVT Confirm Interp Factor V Activity POC ABG pH POC ABG pCO2 POC ABG pO2 ABG pO2 ABG HCO3 ABG Base Excess ABG Hemoglobin Oxyhemoglobin Sodium Potassium 5.7 H D Chloride Carbon Dioxide 16 L BUN 94 H Creatinine 3.1 H Glucose 131 H POC Glucose 153 H Lactic Acid Calcium 8.2 L Phosphorus 5.10 H Magnesium 2.40 H Direct Bilirubin 0.3 H AST ALT < 5 L Alkaline Phosphatase 319 H Lactate Dehydrogenase Troponin T C-Reactive Protein Total Protein 5.1 L Albumin 1.0 L Prealbumin Triglycerides Cholesterol LDL Cholesterol Direct HDL Cholesterol Urine pH Urine WBC (Auto) Urine Creatinine Urine Total Protein Fluid Total Protein Vancomycin Trough Rheumatoid Factor Complement C4 Miscellaneous Test Crossmatch 10/10/16 10/10/16 10/11/16 17:50 23:30 04:15 WBC RBC Hgb Hct MCV MCH MCHC RDW Plt Count Lymph % (Auto) [place] % (Auto) Lymph # [place] # Baso # Seg Neutrophils % Seg Neuts % (Manual) Lymphocytes % (Manual) Monocytes % (Manual) Eosinophils % (Manual) Basophils % (Manual) Nucleated RBC % Seg Neutrophils # Seg Neutrophils # Man Lymphocytes # (Manual) Monocytes # (Manual) Eosinophils # (Manual) PT INR Fibrinogen dRVVT Confirm Interp Factor V Activity POC ABG pH POC ABG pCO2 POC ABG pO2 ABG pO2 ABG HCO3 ABG Base Excess ABG Hemoglobin Oxyhemoglobin Sodium Potassium Chloride 96.4 L Carbon Dioxide 21 L BUN 57 H Creatinine 2.1 H Glucose 151 H POC Glucose 146 H 141 H Lactic Acid Calcium 8.3 L Phosphorus Magnesium Direct Bilirubin AST ALT Alkaline Phosphatase Lactate Dehydrogenase Troponin T C-Reactive Protein Total Protein Albumin Prealbumin Triglycerides Cholesterol LDL Cholesterol Direct HDL Cholesterol Urine pH Urine WBC (Auto) Urine Creatinine Urine Total Protein Fluid Total Protein Vancomycin Trough Rheumatoid Factor Complement C4 Miscellaneous Test Crossmatch 10/11/16 10/11/16 10/11/16 04:15 04:15 05:30 WBC 28.3 H RBC 3.12 L Hgb 9.3 L Hct 28.7 L D MCV MCH MCHC RDW 17.7 H Plt Count 128 L Lymph % (Auto) [place] % (Auto) Lymph # [place] # Baso # Seg Neutrophils % Seg Neuts % (Manual) Lymphocytes % (Manual) Monocytes % (Manual) Eosinophils % (Manual) Basophils % (Manual) Nucleated RBC % Seg Neutrophils # Seg Neutrophils # Man Lymphocytes # (Manual) Monocytes # (Manual) Eosinophils # (Manual) PT INR Fibrinogen dRVVT Confirm Interp Factor V Activity POC ABG pH POC ABG pCO2 POC ABG pO2 ABG pO2 ABG HCO3 ABG Base Excess ABG Hemoglobin Oxyhemoglobin Sodium Potassium Chloride Carbon Dioxide BUN Creatinine Glucose POC Glucose 167 H Lactic Acid Calcium Phosphorus Magnesium Direct Bilirubin AST ALT Alkaline Phosphatase Lactate Dehydrogenase Troponin T C-Reactive Protein 15.80 H Total Protein Albumin Prealbumin Triglycerides Cholesterol LDL Cholesterol Direct HDL Cholesterol Urine pH Urine WBC (Auto) Urine Creatinine Urine Total Protein Fluid Total Protein Vancomycin Trough Rheumatoid Factor Complement C4 Miscellaneous Test Crossmatch 10/11/16 10/11/16 10/11/16 11:40 15:49 23:57 WBC RBC Hgb Hct MCV MCH MCHC RDW Plt Count Lymph % (Auto) [place] % (Auto) Lymph # [place] # Baso # Seg Neutrophils % Seg Neuts % (Manual) Lymphocytes % (Manual) Monocytes % (Manual) Eosinophils % (Manual) Basophils % (Manual) Nucleated RBC % Seg Neutrophils # Seg Neutrophils # Man Lymphocytes # (Manual) Monocytes # (Manual) Eosinophils # (Manual) PT INR Fibrinogen dRVVT Confirm Interp Factor V Activity POC ABG pH POC ABG pCO2 POC ABG pO2 ABG pO2 ABG HCO3 ABG Base Excess ABG Hemoglobin Oxyhemoglobin Sodium Potassium Chloride Carbon Dioxide BUN Creatinine Glucose POC Glucose 139 H 168 H 161 H Lactic Acid Calcium Phosphorus Magnesium Direct Bilirubin AST ALT Alkaline Phosphatase Lactate Dehydrogenase Troponin T C-Reactive Protein Total Protein Albumin Prealbumin Triglycerides Cholesterol LDL Cholesterol Direct HDL Cholesterol Urine pH Urine WBC (Auto) Urine Creatinine Urine Total Protein Fluid Total Protein Vancomycin Trough Rheumatoid Factor Complement C4 Miscellaneous Test Crossmatch 10/12/16 10/12/16 10/12/16 04:40 04:40 05:44 WBC 22.5 H RBC 2.88 L Hgb 8.8 L Hct 26.8 L MCV MCH MCHC RDW 17.8 H Plt Count Lymph % (Auto) [place] % (Auto) Lymph # [place] # Baso # Seg Neutrophils % Seg Neuts % (Manual) Lymphocytes % (Manual) Monocytes % (Manual) Eosinophils % (Manual) Basophils % (Manual) Nucleated RBC % Seg Neutrophils # Seg Neutrophils # Man Lymphocytes # (Manual) Monocytes # (Manual) Eosinophils # (Manual) PT INR Fibrinogen dRVVT Confirm Interp Factor V Activity POC ABG pH POC ABG pCO2 POC ABG pO2 ABG pO2 ABG HCO3 ABG Base Excess ABG Hemoglobin Oxyhemoglobin Sodium 134 L Potassium Chloride 93.0 L Carbon Dioxide BUN 74 H Creatinine 2.5 H Glucose 137 H POC Glucose 158 H Lactic Acid Calcium 8.2 L Phosphorus Magnesium Direct Bilirubin AST ALT Alkaline Phosphatase Lactate Dehydrogenase Troponin T C-Reactive Protein Total Protein Albumin Prealbumin Triglycerides Cholesterol LDL Cholesterol Direct HDL Cholesterol Urine pH Urine WBC (Auto) Urine Creatinine Urine Total Protein Fluid Total Protein Vancomycin Trough Rheumatoid Factor Complement C4 Miscellaneous Test Crossmatch 10/12/16 10/12/16 10/12/16 12:27 18:18 23:46 WBC RBC Hgb Hct MCV MCH MCHC RDW Plt Count Lymph % (Auto) [place] % (Auto) Lymph # [place] # Baso # Seg Neutrophils % Seg Neuts % (Manual) Lymphocytes % (Manual) Monocytes % (Manual) Eosinophils % (Manual) Basophils % (Manual) Nucleated RBC % Seg Neutrophils # Seg Neutrophils # Man Lymphocytes # (Manual) Monocytes # (Manual) Eosinophils # (Manual) PT INR Fibrinogen dRVVT Confirm Interp Factor V Activity POC ABG pH POC ABG pCO2 POC ABG pO2 ABG pO2 ABG HCO3 ABG Base Excess ABG Hemoglobin Oxyhemoglobin Sodium Potassium Chloride Carbon Dioxide BUN Creatinine Glucose POC Glucose 153 H 140 H 150 H Lactic Acid Calcium Phosphorus Magnesium Direct Bilirubin AST ALT Alkaline Phosphatase Lactate Dehydrogenase Troponin T C-Reactive Protein Total Protein Albumin Prealbumin Triglycerides Cholesterol LDL Cholesterol Direct HDL Cholesterol Urine pH Urine WBC (Auto) Urine Creatinine Urine Total Protein Fluid Total Protein Vancomycin Trough Rheumatoid Factor Complement C4 Miscellaneous Test Crossmatch 10/13/16 10/13/16 10/13/16 06:22 09:20 12:29 WBC RBC Hgb Hct MCV MCH MCHC RDW Plt Count Lymph % (Auto) [place] % (Auto) Lymph # [place] # Baso # Seg Neutrophils % Seg Neuts % (Manual) Lymphocytes % (Manual) Monocytes % (Manual) Eosinophils % (Manual) Basophils % (Manual) Nucleated RBC % Seg Neutrophils # Seg Neutrophils # Man Lymphocytes # (Manual) Monocytes # (Manual) Eosinophils # (Manual) PT INR Fibrinogen dRVVT Confirm Interp Factor V Activity POC ABG pH POC ABG pCO2 POC ABG pO2 ABG pO2 ABG HCO3 ABG Base Excess ABG Hemoglobin Oxyhemoglobin Sodium Potassium Chloride Carbon Dioxide BUN Creatinine Glucose POC Glucose 165 H 193 H Lactic Acid Calcium Phosphorus Magnesium Direct Bilirubin AST ALT Alkaline Phosphatase Lactate Dehydrogenase Troponin T C-Reactive Protein Total Protein Albumin Prealbumin Triglycerides Cholesterol LDL Cholesterol Direct HDL Cholesterol Urine pH Urine WBC (Auto) Urine Creatinine Urine Total Protein Fluid Total Protein Vancomycin Trough Rheumatoid Factor Complement C4 Miscellaneous Test Flexitest 1 H Crossmatch 10/13/16 10/13/16 10/13/16 18:09 Unknown Unknown WBC 23.4 H RBC 2.83 L Hgb 8.7 L Hct 26.1 L MCV MCH MCHC RDW 18.1 H Plt Count Lymph % (Auto) [place] % (Auto) Lymph # [place] # Baso # Seg Neutrophils % Seg Neuts % (Manual) Lymphocytes % (Manual) Monocytes % (Manual) Eosinophils % (Manual) Basophils % (Manual) Nucleated RBC % Seg Neutrophils # Seg Neutrophils # Man Lymphocytes # (Manual) Monocytes # (Manual) Eosinophils # (Manual) PT INR Fibrinogen dRVVT Confirm Interp Factor V Activity POC ABG pH POC ABG pCO2 POC ABG pO2 ABG pO2 ABG HCO3 ABG Base Excess ABG Hemoglobin Oxyhemoglobin Sodium Potassium Chloride 95.8 L Carbon Dioxide BUN 82 H Creatinine 2.6 H Glucose 152 H POC Glucose 166 H Lactic Acid Calcium Phosphorus Magnesium Direct Bilirubin AST ALT Alkaline Phosphatase Lactate Dehydrogenase Troponin T C-Reactive Protein Total Protein Albumin Prealbumin Triglycerides Cholesterol LDL Cholesterol Direct HDL Cholesterol Urine pH Urine WBC (Auto) Urine Creatinine Urine Total Protein Fluid Total Protein Vancomycin Trough Rheumatoid Factor Complement C4 Miscellaneous Test Crossmatch 10/14/16 10/14/16 10/14/16 05:38 06:35 08:10 WBC 20.7 H RBC 2.81 L Hgb 8.4 L Hct 27.2 L MCV MCH MCHC RDW 19.4 H Plt Count Lymph % (Auto) [place] % (Auto) Lymph # [place] # Baso # Seg Neutrophils % Seg Neuts % (Manual) Lymphocytes % (Manual) Monocytes % (Manual) Eosinophils % (Manual) Basophils % (Manual) Nucleated RBC % Seg Neutrophils # Seg Neutrophils # Man Lymphocytes # (Manual) Monocytes # (Manual) Eosinophils # (Manual) PT INR Fibrinogen dRVVT Confirm Interp Factor V Activity POC ABG pH POC ABG pCO2 POC ABG pO2 ABG pO2 ABG HCO3 ABG Base Excess ABG Hemoglobin Oxyhemoglobin Sodium Potassium Chloride Carbon Dioxide BUN 58 H Creatinine 1.9 H Glucose 169 H POC Glucose 195 H Lactic Acid Calcium Phosphorus Magnesium Direct Bilirubin AST ALT Alkaline Phosphatase Lactate Dehydrogenase Troponin T C-Reactive Protein Total Protein Albumin Prealbumin Triglycerides Cholesterol LDL Cholesterol Direct HDL Cholesterol Urine pH Urine WBC (Auto) Urine Creatinine Urine Total Protein Fluid Total Protein Vancomycin Trough Rheumatoid Factor Complement C4 Miscellaneous Test Crossmatch 10/14/16 10/14/16 10/14/16 11:44 17:13 23:28 WBC RBC Hgb Hct MCV MCH MCHC RDW Plt Count Lymph % (Auto) [place] % (Auto) Lymph # [place] # Baso # Seg Neutrophils % Seg Neuts % (Manual) Lymphocytes % (Manual) Monocytes % (Manual) Eosinophils % (Manual) Basophils % (Manual) Nucleated RBC % Seg Neutrophils # Seg Neutrophils # Man Lymphocytes # (Manual) Monocytes # (Manual) Eosinophils # (Manual) PT INR Fibrinogen dRVVT Confirm Interp Factor V Activity POC ABG pH POC ABG pCO2 POC ABG pO2 ABG pO2 ABG HCO3 ABG Base Excess ABG Hemoglobin Oxyhemoglobin Sodium Potassium Chloride Carbon Dioxide BUN Creatinine Glucose POC Glucose 174 H 121 H 151 H Lactic Acid Calcium Phosphorus Magnesium Direct Bilirubin AST ALT Alkaline Phosphatase Lactate Dehydrogenase Troponin T C-Reactive Protein Total Protein Albumin Prealbumin Triglycerides Cholesterol LDL Cholesterol Direct HDL Cholesterol Urine pH Urine WBC (Auto) Urine Creatinine Urine Total Protein Fluid Total Protein Vancomycin Trough Rheumatoid Factor Complement C4 Miscellaneous Test Crossmatch 10/15/16 10/15/16 10/15/16 05:06 12:26 17:48 WBC RBC Hgb Hct MCV MCH MCHC RDW Plt Count Lymph % (Auto) [place] % (Auto) Lymph # [place] # Baso # Seg Neutrophils % Seg Neuts % (Manual) Lymphocytes % (Manual) Monocytes % (Manual) Eosinophils % (Manual) Basophils % (Manual) Nucleated RBC % Seg Neutrophils # Seg Neutrophils # Man Lymphocytes # (Manual) Monocytes # (Manual) Eosinophils # (Manual) PT INR Fibrinogen dRVVT Confirm Interp Factor V Activity POC ABG pH POC ABG pCO2 POC ABG pO2 ABG pO2 ABG HCO3 ABG Base Excess ABG Hemoglobin Oxyhemoglobin Sodium Potassium Chloride Carbon Dioxide BUN Creatinine Glucose POC Glucose 151 H 149 H 153 H Lactic Acid Calcium Phosphorus Magnesium Direct Bilirubin AST ALT Alkaline Phosphatase Lactate Dehydrogenase Troponin T C-Reactive Protein Total Protein Albumin Prealbumin Triglycerides Cholesterol LDL Cholesterol Direct HDL Cholesterol Urine pH Urine WBC (Auto) Urine Creatinine Urine Total Protein Fluid Total Protein Vancomycin Trough Rheumatoid Factor Complement C4 Miscellaneous Test Crossmatch 10/15/16 10/15/16 10/16/16 Unknown Unknown 00:02 WBC 23.4 H RBC 2.78 L Hgb 8.5 L Hct 25.7 L MCV MCH MCHC RDW 18.7 H Plt Count Lymph % (Auto) [place] % (Auto) Lymph # [place] # Baso # Seg Neutrophils % Seg Neuts % (Manual) Lymphocytes % (Manual) Monocytes % (Manual) Eosinophils % (Manual) Basophils % (Manual) Nucleated RBC % Seg Neutrophils # Seg Neutrophils # Man Lymphocytes # (Manual) Monocytes # (Manual) Eosinophils # (Manual) PT INR Fibrinogen dRVVT Confirm Interp Factor V Activity POC ABG pH POC ABG pCO2 POC ABG pO2 ABG pO2 ABG HCO3 ABG Base Excess ABG Hemoglobin Oxyhemoglobin Sodium Potassium Chloride Carbon Dioxide BUN 73 H Creatinine 2.3 H Glucose 120 H POC Glucose 137 H Lactic Acid Calcium Phosphorus Magnesium Direct Bilirubin AST ALT Alkaline Phosphatase Lactate Dehydrogenase Troponin T C-Reactive Protein Total Protein Albumin Prealbumin Triglycerides Cholesterol LDL Cholesterol Direct HDL Cholesterol Urine pH Urine WBC (Auto) Urine Creatinine Urine Total Protein Fluid Total Protein Vancomycin Trough Rheumatoid Factor Complement C4 Miscellaneous Test Crossmatch 10/16/16 10/16/16 10/16/16 05:44 06:25 06:25 WBC 22.5 H RBC 2.76 L Hgb 8.3 L Hct 25.2 L MCV MCH MCHC RDW 18.3 H Plt Count Lymph % (Auto) [place] % (Auto) Lymph # [place] # Baso # Seg Neutrophils % Seg Neuts % (Manual) Lymphocytes % (Manual) Monocytes % (Manual) Eosinophils % (Manual) Basophils % (Manual) Nucleated RBC % Seg Neutrophils # Seg Neutrophils # Man Lymphocytes # (Manual) Monocytes # (Manual) Eosinophils # (Manual) PT INR Fibrinogen dRVVT Confirm Interp Factor V Activity POC ABG pH POC ABG pCO2 POC ABG pO2 ABG pO2 ABG HCO3 ABG Base Excess ABG Hemoglobin Oxyhemoglobin Sodium Potassium Chloride Carbon Dioxide BUN 92 H Creatinine 3.0 H Glucose 138 H POC Glucose 110 H Lactic Acid Calcium Phosphorus Magnesium Direct Bilirubin AST ALT Alkaline Phosphatase Lactate Dehydrogenase Troponin T C-Reactive Protein Total Protein Albumin Prealbumin Triglycerides Cholesterol LDL Cholesterol Direct HDL Cholesterol Urine pH Urine WBC (Auto) Urine Creatinine Urine Total Protein Fluid Total Protein Vancomycin Trough Rheumatoid Factor Complement C4 Miscellaneous Test Crossmatch 10/16/16 10/16/16 10/16/16 11:27 11:48 17:36 WBC RBC Hgb Hct MCV MCH MCHC RDW Plt Count Lymph % (Auto) [place] % (Auto) Lymph # [place] # Baso # Seg Neutrophils % Seg Neuts % (Manual) Lymphocytes % (Manual) Monocytes % (Manual) Eosinophils % (Manual) Basophils % (Manual) Nucleated RBC % Seg Neutrophils # Seg Neutrophils # Man Lymphocytes # (Manual) Monocytes # (Manual) Eosinophils # (Manual) PT INR Fibrinogen dRVVT Confirm Interp Factor V Activity POC ABG pH 7.582 H POC ABG pCO2 27.4 L POC ABG pO2 110 H ABG pO2 ABG HCO3 ABG Base Excess ABG Hemoglobin Oxyhemoglobin Sodium Potassium Chloride Carbon Dioxide BUN Creatinine Glucose POC Glucose 121 H 133 H Lactic Acid Calcium Phosphorus Magnesium Direct Bilirubin AST ALT Alkaline Phosphatase Lactate Dehydrogenase Troponin T C-Reactive Protein Total Protein Albumin Prealbumin Triglycerides Cholesterol LDL Cholesterol Direct HDL Cholesterol Urine pH Urine WBC (Auto) Urine Creatinine Urine Total Protein Fluid Total Protein Vancomycin Trough Rheumatoid Factor Complement C4 Miscellaneous Test Crossmatch 10/16/16 10/17/16 10/17/16 20:48 04:24 04:24 WBC 21.4 H RBC 2.72 L Hgb 8.0 L Hct 25.2 L MCV MCH MCHC RDW 18.0 H Plt Count Lymph % (Auto) [place] % (Auto) Lymph # [place] # Baso # Seg Neutrophils % Seg Neuts % (Manual) Lymphocytes % (Manual) Monocytes % (Manual) Eosinophils % (Manual) Basophils % (Manual) Nucleated RBC % Seg Neutrophils # Seg Neutrophils # Man Lymphocytes # (Manual) Monocytes # (Manual) Eosinophils # (Manual) PT INR Fibrinogen dRVVT Confirm Interp Factor V Activity POC ABG pH 7.561 H POC ABG pCO2 24.4 L POC ABG pO2 77 L ABG pO2 ABG HCO3 ABG Base Excess ABG Hemoglobin Oxyhemoglobin Sodium 148 H Potassium Chloride Carbon Dioxide BUN 104 H Creatinine 3.0 H Glucose 149 H POC Glucose Lactic Acid Calcium Phosphorus Magnesium Direct Bilirubin AST ALT Alkaline Phosphatase 138 H Lactate Dehydrogenase Troponin T C-Reactive Protein Total Protein 6.2 L Albumin 1.5 L Prealbumin Triglycerides Cholesterol LDL Cholesterol Direct HDL Cholesterol Urine pH Urine WBC (Auto) Urine Creatinine Urine Total Protein Fluid Total Protein Vancomycin Trough Rheumatoid Factor Complement C4 Miscellaneous Test Crossmatch 10/17/16 10/17/16 10/17/16 06:02 12:17 17:14 WBC RBC Hgb Hct MCV MCH MCHC RDW Plt Count Lymph % (Auto) [place] % (Auto) Lymph # [place] # Baso # Seg Neutrophils % Seg Neuts % (Manual) Lymphocytes % (Manual) Monocytes % (Manual) Eosinophils % (Manual) Basophils % (Manual) Nucleated RBC % Seg Neutrophils # Seg Neutrophils # Man Lymphocytes # (Manual) Monocytes # (Manual) Eosinophils # (Manual) PT INR Fibrinogen dRVVT Confirm Interp Factor V Activity POC ABG pH POC ABG pCO2 POC ABG pO2 ABG pO2 ABG HCO3 ABG Base Excess ABG Hemoglobin Oxyhemoglobin Sodium Potassium Chloride Carbon Dioxide BUN Creatinine Glucose POC Glucose 170 H 167 H 126 H Lactic Acid Calcium Phosphorus Magnesium Direct Bilirubin AST ALT Alkaline Phosphatase Lactate Dehydrogenase Troponin T C-Reactive Protein Total Protein Albumin Prealbumin Triglycerides Cholesterol LDL Cholesterol Direct HDL Cholesterol Urine pH Urine WBC (Auto) Urine Creatinine Urine Total Protein Fluid Total Protein Vancomycin Trough Rheumatoid Factor Complement C4 Miscellaneous Test Crossmatch 10/17/16 10/18/16 10/18/16 23:17 04:00 04:00 WBC 20.7 H RBC 2.47 L Hgb 7.4 L Hct 22.9 L MCV MCH MCHC RDW 17.5 H Plt Count Lymph % (Auto) [place] % (Auto) Lymph # [place] # Baso # Seg Neutrophils % Seg Neuts % (Manual) Lymphocytes % (Manual) Monocytes % (Manual) Eosinophils % (Manual) Basophils % (Manual) Nucleated RBC % Seg Neutrophils # Seg Neutrophils # Man Lymphocytes # (Manual) Monocytes # (Manual) Eosinophils # (Manual) PT INR Fibrinogen dRVVT Confirm Interp Factor V Activity POC ABG pH POC ABG pCO2 POC ABG pO2 ABG pO2 ABG HCO3 ABG Base Excess ABG Hemoglobin Oxyhemoglobin Sodium 149 H Potassium Chloride 107.9 H Carbon Dioxide 20 L BUN 117 H Creatinine 3.2 H Glucose 119 H POC Glucose 121 H Lactic Acid Calcium Phosphorus Magnesium Direct Bilirubin AST ALT Alkaline Phosphatase Lactate Dehydrogenase Troponin T C-Reactive Protein Total Protein Albumin Prealbumin Triglycerides Cholesterol LDL Cholesterol Direct HDL Cholesterol Urine pH Urine WBC (Auto) Urine Creatinine Urine Total Protein Fluid Total Protein Vancomycin Trough Rheumatoid Factor Complement C4 Miscellaneous Test Crossmatch 10/18/16 10/18/16 10/18/16 05:23 10:46 17:30 WBC RBC Hgb Hct MCV MCH MCHC RDW Plt Count Lymph % (Auto) [place] % (Auto) Lymph # [place] # Baso # Seg Neutrophils % Seg Neuts % (Manual) Lymphocytes % (Manual) Monocytes % (Manual) Eosinophils % (Manual) Basophils % (Manual) Nucleated RBC % Seg Neutrophils # Seg Neutrophils # Man Lymphocytes # (Manual) Monocytes # (Manual) Eosinophils # (Manual) PT INR Fibrinogen dRVVT Confirm Interp Factor V Activity POC ABG pH POC ABG pCO2 POC ABG pO2 ABG pO2 ABG HCO3 ABG Base Excess ABG Hemoglobin Oxyhemoglobin Sodium Potassium Chloride Carbon Dioxide BUN Creatinine Glucose POC Glucose 119 H 155 H 124 H Lactic Acid Calcium Phosphorus Magnesium Direct Bilirubin AST ALT Alkaline Phosphatase Lactate Dehydrogenase Troponin T C-Reactive Protein Total Protein Albumin Prealbumin Triglycerides Cholesterol LDL Cholesterol Direct HDL Cholesterol Urine pH Urine WBC (Auto) Urine Creatinine Urine Total Protein Fluid Total Protein Vancomycin Trough Rheumatoid Factor Complement C4 Miscellaneous Test Crossmatch 10/19/16 10/19/16 10/19/16 04:00 04:00 05:25 WBC 17.4 H RBC 2.54 L Hgb 7.7 L Hct 23.6 L MCV MCH MCHC RDW 17.3 H Plt Count Lymph % (Auto) [place] % (Auto) Lymph # [place] # Baso # Seg Neutrophils % Seg Neuts % (Manual) Lymphocytes % (Manual) Monocytes % (Manual) Eosinophils % (Manual) Basophils % (Manual) Nucleated RBC % Seg Neutrophils # Seg Neutrophils # Man Lymphocytes # (Manual) Monocytes # (Manual) Eosinophils # (Manual) PT INR Fibrinogen dRVVT Confirm Interp Factor V Activity POC ABG pH POC ABG pCO2 POC ABG pO2 ABG pO2 ABG HCO3 ABG Base Excess ABG Hemoglobin Oxyhemoglobin Sodium Potassium Chloride Carbon Dioxide BUN 72 H Creatinine 2.1 H Glucose 116 H POC Glucose 119 H Lactic Acid Calcium Phosphorus Magnesium Direct Bilirubin AST ALT Alkaline Phosphatase Lactate Dehydrogenase Troponin T C-Reactive Protein Total Protein Albumin Prealbumin Triglycerides Cholesterol LDL Cholesterol Direct HDL Cholesterol Urine pH Urine WBC (Auto) Urine Creatinine Urine Total Protein Fluid Total Protein Vancomycin Trough Rheumatoid Factor Complement C4 Miscellaneous Test Crossmatch 10/19/16 10/19/16 10/20/16 11:46 23:59 06:00 WBC RBC Hgb Hct MCV MCH MCHC RDW Plt Count Lymph % (Auto) [place] % (Auto) Lymph # [place] # Baso # Seg Neutrophils % Seg Neuts % (Manual) Lymphocytes % (Manual) Monocytes % (Manual) Eosinophils % (Manual) Basophils % (Manual) Nucleated RBC % Seg Neutrophils # Seg Neutrophils # Man Lymphocytes # (Manual) Monocytes # (Manual) Eosinophils # (Manual) PT INR Fibrinogen dRVVT Confirm Interp Factor V Activity POC ABG pH POC ABG pCO2 POC ABG pO2 ABG pO2 ABG HCO3 ABG Base Excess ABG Hemoglobin Oxyhemoglobin Sodium Potassium Chloride Carbon Dioxide 17 L BUN 94 H Creatinine 2.7 H Glucose POC Glucose 116 H 117 H Lactic Acid Calcium Phosphorus Magnesium Direct Bilirubin AST ALT Alkaline Phosphatase Lactate Dehydrogenase Troponin T C-Reactive Protein Total Protein Albumin Prealbumin Triglycerides Cholesterol LDL Cholesterol Direct HDL Cholesterol Urine pH Urine WBC (Auto) Urine Creatinine Urine Total Protein Fluid Total Protein Vancomycin Trough Rheumatoid Factor Complement C4 Miscellaneous Test Crossmatch 10/20/16 10/20/16 10/20/16 06:00 11:49 16:00 WBC 19.7 H RBC 2.51 L Hgb 7.7 L Hct 23.5 L MCV MCH MCHC RDW 17.5 H Plt Count Lymph % (Auto) [place] % (Auto) Lymph # [place] # Baso # Seg Neutrophils % Seg Neuts % (Manual) Lymphocytes % (Manual) Monocytes % (Manual) Eosinophils % (Manual) Basophils % (Manual) Nucleated RBC % Seg Neutrophils # Seg Neutrophils # Man Lymphocytes # (Manual) Monocytes # (Manual) Eosinophils # (Manual) PT INR Fibrinogen dRVVT Confirm Interp Factor V Activity POC ABG pH POC ABG pCO2 POC ABG pO2 ABG pO2 ABG HCO3 ABG Base Excess ABG Hemoglobin Oxyhemoglobin Sodium Potassium Chloride Carbon Dioxide BUN Creatinine Glucose POC Glucose 117 H Lactic Acid Calcium Phosphorus Magnesium Direct Bilirubin AST ALT Alkaline Phosphatase Lactate Dehydrogenase Troponin T C-Reactive Protein Total Protein Albumin Prealbumin Triglycerides Cholesterol LDL Cholesterol Direct HDL Cholesterol Urine pH Urine WBC (Auto) Urine Creatinine Urine Total Protein Fluid Total Protein Vancomycin Trough Rheumatoid Factor Complement C4 Miscellaneous Test Flexitest 1 H Crossmatch 10/20/16 10/20/16 10/21/16 18:36 23:39 04:00 WBC RBC Hgb Hct MCV MCH MCHC RDW Plt Count Lymph % (Auto) [place] % (Auto) Lymph # [place] # Baso # Seg Neutrophils % Seg Neuts % (Manual) Lymphocytes % (Manual) Monocytes % (Manual) Eosinophils % (Manual) Basophils % (Manual) Nucleated RBC % Seg Neutrophils # Seg Neutrophils # Man Lymphocytes # (Manual) Monocytes # (Manual) Eosinophils # (Manual) PT INR Fibrinogen dRVVT Confirm Interp Factor V Activity POC ABG pH POC ABG pCO2 POC ABG pO2 ABG pO2 ABG HCO3 ABG Base Excess ABG Hemoglobin Oxyhemoglobin Sodium Potassium 5.4 H D Chloride Carbon Dioxide 15 L BUN 110 H Creatinine 3.0 H Glucose POC Glucose 127 H 114 H Lactic Acid Calcium Phosphorus Magnesium Direct Bilirubin AST ALT Alkaline Phosphatase Lactate Dehydrogenase Troponin T C-Reactive Protein Total Protein Albumin Prealbumin Triglycerides Cholesterol LDL Cholesterol Direct HDL Cholesterol Urine pH Urine WBC (Auto) Urine Creatinine Urine Total Protein Fluid Total Protein Vancomycin Trough Rheumatoid Factor Complement C4 Miscellaneous Test Crossmatch 10/21/16 10/21/16 10/22/16 05:54 23:46 05:18 WBC RBC Hgb Hct MCV MCH MCHC RDW Plt Count Lymph % (Auto) [place] % (Auto) Lymph # [place] # Baso # Seg Neutrophils % Seg Neuts % (Manual) Lymphocytes % (Manual) Monocytes % (Manual) Eosinophils % (Manual) Basophils % (Manual) Nucleated RBC % Seg Neutrophils # Seg Neutrophils # Man Lymphocytes # (Manual) Monocytes # (Manual) Eosinophils # (Manual) PT INR Fibrinogen dRVVT Confirm Interp Factor V Activity POC ABG pH POC ABG pCO2 POC ABG pO2 ABG pO2 ABG HCO3 ABG Base Excess ABG Hemoglobin Oxyhemoglobin Sodium Potassium Chloride Carbon Dioxide BUN Creatinine Glucose POC Glucose 119 H 108 H 109 H Lactic Acid Calcium Phosphorus Magnesium Direct Bilirubin AST ALT Alkaline Phosphatase Lactate Dehydrogenase Troponin T C-Reactive Protein Total Protein Albumin Prealbumin Triglycerides Cholesterol LDL Cholesterol Direct HDL Cholesterol Urine pH Urine WBC (Auto) Urine Creatinine Urine Total Protein Fluid Total Protein Vancomycin Trough Rheumatoid Factor Complement C4 Miscellaneous Test Crossmatch 10/22/16 10/22/16 10/22/16 06:40 06:40 06:40 WBC 14.0 H RBC 2.03 L Hgb 7.0 L Hct 20.5 L MCV 98 H MCH 34 H MCHC 35 H RDW 17.8 H Plt Count Lymph % (Auto) [place] % (Auto) 9.9 H Lymph # [place] # 1.4 H Baso # 0.2 H Seg Neutrophils % 72.0 H Seg Neuts % (Manual) Lymphocytes % (Manual) Monocytes % (Manual) Eosinophils % (Manual) Basophils % (Manual) Nucleated RBC % Seg Neutrophils # 10.0 H Seg Neutrophils # Man Lymphocytes # (Manual) Monocytes # (Manual) Eosinophils # (Manual) PT INR Fibrinogen dRVVT Confirm Interp Factor V Activity POC ABG pH POC ABG pCO2 POC ABG pO2 ABG pO2 ABG HCO3 ABG Base Excess ABG Hemoglobin Oxyhemoglobin Sodium 130 L D Potassium Chloride 92.4 L Carbon Dioxide 20 L BUN 50 H Creatinine 1.6 H Glucose 589 H* POC Glucose Lactic Acid Calcium 7.8 L D Phosphorus Magnesium 1.60 L Direct Bilirubin AST ALT Alkaline Phosphatase Lactate Dehydrogenase Troponin T C-Reactive Protein Total Protein Albumin Prealbumin Triglycerides Cholesterol LDL Cholesterol Direct HDL Cholesterol Urine pH Urine WBC (Auto) Urine Creatinine Urine Total Protein Fluid Total Protein Vancomycin Trough Rheumatoid Factor Complement C4 Miscellaneous Test Crossmatch 10/22/16 10/22/16 10/22/16 11:39 16:44 23:36 WBC RBC Hgb Hct MCV MCH MCHC RDW Plt Count Lymph % (Auto) [place] % (Auto) Lymph # [place] # Baso # Seg Neutrophils % Seg Neuts % (Manual) Lymphocytes % (Manual) Monocytes % (Manual) Eosinophils % (Manual) Basophils % (Manual) Nucleated RBC % Seg Neutrophils # Seg Neutrophils # Man Lymphocytes # (Manual) Monocytes # (Manual) Eosinophils # (Manual) PT INR Fibrinogen dRVVT Confirm Interp Factor V Activity POC ABG pH POC ABG pCO2 POC ABG pO2 ABG pO2 ABG HCO3 ABG Base Excess ABG Hemoglobin Oxyhemoglobin Sodium Potassium Chloride Carbon Dioxide BUN Creatinine Glucose POC Glucose 142 H 163 H 123 H Lactic Acid Calcium Phosphorus Magnesium Direct Bilirubin AST ALT Alkaline Phosphatase Lactate Dehydrogenase Troponin T C-Reactive Protein Total Protein Albumin Prealbumin Triglycerides Cholesterol LDL Cholesterol Direct HDL Cholesterol Urine pH Urine WBC (Auto) Urine Creatinine Urine Total Protein Fluid Total Protein Vancomycin Trough Rheumatoid Factor Complement C4 Miscellaneous Test Crossmatch 10/23/16 10/23/16 10/23/16 04:58 06:00 12:12 WBC RBC Hgb Hct MCV MCH MCHC RDW Plt Count Lymph % (Auto) [place] % (Auto) Lymph # [place] # Baso # Seg Neutrophils % Seg Neuts % (Manual) Lymphocytes % (Manual) Monocytes % (Manual) Eosinophils % (Manual) Basophils % (Manual) Nucleated RBC % Seg Neutrophils # Seg Neutrophils # Man Lymphocytes # (Manual) Monocytes # (Manual) Eosinophils # (Manual) PT INR Fibrinogen dRVVT Confirm Interp Factor V Activity POC ABG pH POC ABG pCO2 POC ABG pO2 ABG pO2 ABG HCO3 ABG Base Excess ABG Hemoglobin Oxyhemoglobin Sodium 133 L Potassium 3.5 L Chloride 96.1 L Carbon Dioxide 18 L BUN 76 H Creatinine 2.1 H Glucose POC Glucose 133 H 138 H Lactic Acid Calcium 8.3 L Phosphorus Magnesium Direct Bilirubin AST ALT Alkaline Phosphatase Lactate Dehydrogenase Troponin T C-Reactive Protein Total Protein Albumin Prealbumin Triglycerides Cholesterol LDL Cholesterol Direct HDL Cholesterol Urine pH Urine WBC (Auto) Urine Creatinine Urine Total Protein Fluid Total Protein Vancomycin Trough Rheumatoid Factor Complement C4 Miscellaneous Test Crossmatch 10/23/16 10/23/16 10/24/16 16:53 23:37 04:00 WBC RBC Hgb Hct MCV MCH MCHC RDW Plt Count Lymph % (Auto) [place] % (Auto) Lymph # [place] # Baso # Seg Neutrophils % Seg Neuts % (Manual) Lymphocytes % (Manual) Monocytes % (Manual) Eosinophils % (Manual) Basophils % (Manual) Nucleated RBC % Seg Neutrophils # Seg Neutrophils # Man Lymphocytes # (Manual) Monocytes # (Manual) Eosinophils # (Manual) PT INR Fibrinogen dRVVT Confirm Interp Factor V Activity POC ABG pH POC ABG pCO2 POC ABG pO2 ABG pO2 ABG HCO3 ABG Base Excess ABG Hemoglobin Oxyhemoglobin Sodium 131 L Potassium Chloride 94.5 L Carbon Dioxide 19 L BUN 97 H Creatinine 2.6 H Glucose 110 H POC Glucose 125 H 123 H Lactic Acid Calcium 8.3 L Phosphorus Magnesium Direct Bilirubin AST ALT Alkaline Phosphatase Lactate Dehydrogenase Troponin T C-Reactive Protein Total Protein Albumin Prealbumin Triglycerides Cholesterol LDL Cholesterol Direct HDL Cholesterol Urine pH Urine WBC (Auto) Urine Creatinine Urine Total Protein Fluid Total Protein Vancomycin Trough Rheumatoid Factor Complement C4 Miscellaneous Test Crossmatch 10/24/16 10/24/16 10/24/16 07:49 11:39 17:52 WBC RBC Hgb 6.0 L Hct 19.7 L* MCV MCH MCHC RDW Plt Count Lymph % (Auto) [place] % (Auto) Lymph # [place] # Baso # Seg Neutrophils % Seg Neuts % (Manual) Lymphocytes % (Manual) Monocytes % (Manual) Eosinophils % (Manual) Basophils % (Manual) Nucleated RBC % Seg Neutrophils # Seg Neutrophils # Man Lymphocytes # (Manual) Monocytes # (Manual) Eosinophils # (Manual) PT INR Fibrinogen dRVVT Confirm Interp Factor V Activity POC ABG pH POC ABG pCO2 POC ABG pO2 ABG pO2 ABG HCO3 ABG Base Excess ABG Hemoglobin Oxyhemoglobin Sodium Potassium Chloride Carbon Dioxide BUN Creatinine Glucose POC Glucose 106 H 158 H Lactic Acid Calcium Phosphorus Magnesium Direct Bilirubin AST ALT Alkaline Phosphatase Lactate Dehydrogenase Troponin T C-Reactive Protein Total Protein Albumin Prealbumin Triglycerides Cholesterol LDL Cholesterol Direct HDL Cholesterol Urine pH Urine WBC (Auto) Urine Creatinine Urine Total Protein Fluid Total Protein Vancomycin Trough Rheumatoid Factor Complement C4 Miscellaneous Test Crossmatch 10/24/16 10/24/16 10/24/16 20:00 22:27 Unknown WBC RBC Hgb 9.4 L D Hct 27.5 L D MCV MCH MCHC RDW Plt Count Lymph % (Auto) [place] % (Auto) Lymph # [place] # Baso # Seg Neutrophils % Seg Neuts % (Manual) Lymphocytes % (Manual) Monocytes % (Manual) Eosinophils % (Manual) Basophils % (Manual) Nucleated RBC % Seg Neutrophils # Seg Neutrophils # Man Lymphocytes # (Manual) Monocytes # (Manual) Eosinophils # (Manual) PT INR Fibrinogen dRVVT Confirm Interp Factor V Activity POC ABG pH POC ABG pCO2 POC ABG pO2 ABG pO2 ABG HCO3 ABG Base Excess ABG Hemoglobin Oxyhemoglobin Sodium Potassium Chloride Carbon Dioxide BUN Creatinine Glucose POC Glucose 125 H Lactic Acid Calcium Phosphorus Magnesium Direct Bilirubin AST ALT Alkaline Phosphatase Lactate Dehydrogenase Troponin T C-Reactive Protein Total Protein Albumin Prealbumin Triglycerides Cholesterol LDL Cholesterol Direct HDL Cholesterol Urine pH Urine WBC (Auto) Urine Creatinine Urine Total Protein Fluid Total Protein Vancomycin Trough Rheumatoid Factor Complement C4 Miscellaneous Test Crossmatch See Detail 10/25/16 10/25/16 10/25/16 04:00 04:00 04:00 WBC 14.2 H RBC 2.98 L Hgb 9.0 L Hct 26.2 L MCV MCH MCHC RDW 16.6 H Plt Count Lymph % (Auto) [place] % (Auto) 10.7 H Lymph # [place] # 1.5 H Baso # Seg Neutrophils % 73.6 H Seg Neuts % (Manual) Lymphocytes % (Manual) Monocytes % (Manual) Eosinophils % (Manual) Basophils % (Manual) Nucleated RBC % Seg Neutrophils # 10.5 H Seg Neutrophils # Man Lymphocytes # (Manual) Monocytes # (Manual) Eosinophils # (Manual) PT INR Fibrinogen dRVVT Confirm Interp Factor V Activity POC ABG pH POC ABG pCO2 POC ABG pO2 ABG pO2 ABG HCO3 ABG Base Excess ABG Hemoglobin Oxyhemoglobin Sodium 132 L Potassium Chloride 94.7 L Carbon Dioxide BUN 51 H Creatinine 1.6 H Glucose 130 H POC Glucose Lactic Acid Calcium 8.3 L Phosphorus 1.60 L D Magnesium Direct Bilirubin AST ALT Alkaline Phosphatase Lactate Dehydrogenase Troponin T C-Reactive Protein Total Protein Albumin Prealbumin Triglycerides Cholesterol LDL Cholesterol Direct HDL Cholesterol Urine pH Urine WBC (Auto) Urine Creatinine Urine Total Protein Fluid Total Protein Vancomycin Trough Rheumatoid Factor Complement C4 Miscellaneous Test Crossmatch 10/25/16 10/25/16 10/25/16 04:32 11:48 17:22 WBC RBC Hgb Hct MCV MCH MCHC RDW Plt Count Lymph % (Auto) [place] % (Auto) Lymph # [place] # Baso # Seg Neutrophils % Seg Neuts % (Manual) Lymphocytes % (Manual) Monocytes % (Manual) Eosinophils % (Manual) Basophils % (Manual) Nucleated RBC % Seg Neutrophils # Seg Neutrophils # Man Lymphocytes # (Manual) Monocytes # (Manual) Eosinophils # (Manual) PT INR Fibrinogen dRVVT Confirm Interp Factor V Activity POC ABG pH POC ABG pCO2 POC ABG pO2 ABG pO2 ABG HCO3 ABG Base Excess ABG Hemoglobin Oxyhemoglobin Sodium Potassium Chloride Carbon Dioxide BUN Creatinine Glucose POC Glucose 124 H 171 H 120 H Lactic Acid Calcium Phosphorus Magnesium Direct Bilirubin AST ALT Alkaline Phosphatase Lactate Dehydrogenase Troponin T C-Reactive Protein Total Protein Albumin Prealbumin Triglycerides Cholesterol LDL Cholesterol Direct HDL Cholesterol Urine pH Urine WBC (Auto) Urine Creatinine Urine Total Protein Fluid Total Protein Vancomycin Trough Rheumatoid Factor Complement C4 Miscellaneous Test Crossmatch 10/26/16 10/26/16 10/26/16 04:54 07:06 07:06 WBC 16.9 H RBC 3.06 L Hgb 9.1 L Hct 26.9 L MCV MCH MCHC RDW 16.9 H Plt Count Lymph % (Auto) [place] % (Auto) Lymph # [place] # Baso # Seg Neutrophils % Seg Neuts % (Manual) 71.0 H Lymphocytes % (Manual) 5.0 L Monocytes % (Manual) 12.0 H Eosinophils % (Manual) Basophils % (Manual) Nucleated RBC % Seg Neutrophils # Seg Neutrophils # Man 12.0 H Lymphocytes # (Manual) 0.8 L Monocytes # (Manual) 2.0 H Eosinophils # (Manual) PT INR Fibrinogen dRVVT Confirm Interp Factor V Activity POC ABG pH POC ABG pCO2 POC ABG pO2 ABG pO2 ABG HCO3 ABG Base Excess ABG Hemoglobin Oxyhemoglobin Sodium 135 L Potassium Chloride 97.1 L Carbon Dioxide BUN 73 H Creatinine 2.2 H Glucose 117 H POC Glucose 123 H Lactic Acid Calcium Phosphorus 1.70 L Magnesium Direct Bilirubin AST ALT Alkaline Phosphatase Lactate Dehydrogenase Troponin T C-Reactive Protein Total Protein Albumin Prealbumin Triglycerides Cholesterol LDL Cholesterol Direct HDL Cholesterol Urine pH Urine WBC (Auto) Urine Creatinine Urine Total Protein Fluid Total Protein Vancomycin Trough Rheumatoid Factor Complement C4 Miscellaneous Test Crossmatch 10/26/16 10/26/16 10/26/16 12:12 17:29 23:42 WBC RBC Hgb Hct MCV MCH MCHC RDW Plt Count Lymph % (Auto) [place] % (Auto) Lymph # [place] # Baso # Seg Neutrophils % Seg Neuts % (Manual) Lymphocytes % (Manual) Monocytes % (Manual) Eosinophils % (Manual) Basophils % (Manual) Nucleated RBC % Seg Neutrophils # Seg Neutrophils # Man Lymphocytes # (Manual) Monocytes # (Manual) Eosinophils # (Manual) PT INR Fibrinogen dRVVT Confirm Interp Factor V Activity POC ABG pH POC ABG pCO2 POC ABG pO2 ABG pO2 ABG HCO3 ABG Base Excess ABG Hemoglobin Oxyhemoglobin Sodium Potassium Chloride Carbon Dioxide BUN Creatinine Glucose POC Glucose 126 H 161 H 118 H Lactic Acid Calcium Phosphorus Magnesium Direct Bilirubin AST ALT Alkaline Phosphatase Lactate Dehydrogenase Troponin T C-Reactive Protein Total Protein Albumin Prealbumin Triglycerides Cholesterol LDL Cholesterol Direct HDL Cholesterol Urine pH Urine WBC (Auto) Urine Creatinine Urine Total Protein Fluid Total Protein Vancomycin Trough Rheumatoid Factor Complement C4 Miscellaneous Test Crossmatch 10/27/16 10/27/16 10/27/16 05:03 06:30 06:30 WBC 13.9 H RBC 3.09 L Hgb 9.2 L Hct 27.5 L MCV MCH MCHC RDW 17.0 H Plt Count Lymph % (Auto) [place] % (Auto) Lymph # [place] # Baso # Seg Neutrophils % Seg Neuts % (Manual) 78.0 H Lymphocytes % (Manual) Monocytes % (Manual) Eosinophils % (Manual) Basophils % (Manual) Nucleated RBC % 2.0 H Seg Neutrophils # Seg Neutrophils # Man 10.8 H Lymphocytes # (Manual) Monocytes # (Manual) 1.0 H Eosinophils # (Manual) PT INR Fibrinogen dRVVT Confirm Interp Factor V Activity POC ABG pH POC ABG pCO2 POC ABG pO2 ABG pO2 ABG HCO3 ABG Base Excess ABG Hemoglobin Oxyhemoglobin Sodium Potassium Chloride Carbon Dioxide BUN 40 H Creatinine 1.5 H Glucose 135 H POC Glucose 107 H Lactic Acid Calcium 8.3 L Phosphorus 1.30 L D Magnesium Direct Bilirubin AST ALT Alkaline Phosphatase Lactate Dehydrogenase Troponin T C-Reactive Protein Total Protein Albumin Prealbumin Triglycerides Cholesterol LDL Cholesterol Direct HDL Cholesterol Urine pH Urine WBC (Auto) Urine Creatinine Urine Total Protein Fluid Total Protein Vancomycin Trough Rheumatoid Factor Complement C4 Miscellaneous Test Crossmatch 10/27/16 10/27/16 10/27/16 13:27 18:07 23:40 WBC RBC Hgb Hct MCV MCH MCHC RDW Plt Count Lymph % (Auto) [place] % (Auto) Lymph # [place] # Baso # Seg Neutrophils % Seg Neuts % (Manual) Lymphocytes % (Manual) Monocytes % (Manual) Eosinophils % (Manual) Basophils % (Manual) Nucleated RBC % Seg Neutrophils # Seg Neutrophils # Man Lymphocytes # (Manual) Monocytes # (Manual) Eosinophils # (Manual) PT INR Fibrinogen dRVVT Confirm Interp Factor V Activity POC ABG pH POC ABG pCO2 POC ABG pO2 ABG pO2 ABG HCO3 ABG Base Excess ABG Hemoglobin Oxyhemoglobin Sodium Potassium Chloride Carbon Dioxide BUN Creatinine Glucose POC Glucose 117 H 121 H 118 H Lactic Acid Calcium Phosphorus Magnesium Direct Bilirubin AST ALT Alkaline Phosphatase Lactate Dehydrogenase Troponin T C-Reactive Protein Total Protein Albumin Prealbumin Triglycerides Cholesterol LDL Cholesterol Direct HDL Cholesterol Urine pH Urine WBC (Auto) Urine Creatinine Urine Total Protein Fluid Total Protein Vancomycin Trough Rheumatoid Factor Complement C4 Miscellaneous Test Crossmatch 10/28/16 10/28/16 10/28/16 05:48 06:45 06:45 WBC 14.7 H RBC 3.05 L Hgb 9.0 L Hct 26.9 L MCV MCH MCHC RDW 16.8 H Plt Count Lymph % (Auto) 8.2 L [place] % (Auto) 8.4 H Lymph # [place] # 1.2 H Baso # Seg Neutrophils % 81.9 H Seg Neuts % (Manual) Lymphocytes % (Manual) Monocytes % (Manual) Eosinophils % (Manual) Basophils % (Manual) Nucleated RBC % Seg Neutrophils # 12.1 H Seg Neutrophils # Man Lymphocytes # (Manual) Monocytes # (Manual) Eosinophils # (Manual) PT INR Fibrinogen dRVVT Confirm Interp Factor V Activity POC ABG pH POC ABG pCO2 POC ABG pO2 ABG pO2 ABG HCO3 ABG Base Excess ABG Hemoglobin Oxyhemoglobin Sodium Potassium Chloride Carbon Dioxide BUN 60 H Creatinine 1.9 H Glucose 120 H POC Glucose 114 H Lactic Acid Calcium Phosphorus Magnesium Direct Bilirubin AST ALT Alkaline Phosphatase Lactate Dehydrogenase Troponin T C-Reactive Protein Total Protein Albumin Prealbumin Triglycerides Cholesterol LDL Cholesterol Direct HDL Cholesterol Urine pH Urine WBC (Auto) Urine Creatinine Urine Total Protein Fluid Total Protein Vancomycin Trough Rheumatoid Factor Complement C4 Miscellaneous Test Crossmatch 10/28/16 10/28/16 10/29/16 17:08 23:50 05:10 WBC RBC Hgb Hct MCV MCH MCHC RDW Plt Count Lymph % (Auto) [place] % (Auto) Lymph # [place] # Baso # Seg Neutrophils % Seg Neuts % (Manual) Lymphocytes % (Manual) Monocytes % (Manual) Eosinophils % (Manual) Basophils % (Manual) Nucleated RBC % Seg Neutrophils # Seg Neutrophils # Man Lymphocytes # (Manual) Monocytes # (Manual) Eosinophils # (Manual) PT INR Fibrinogen dRVVT Confirm Interp Factor V Activity POC ABG pH POC ABG pCO2 POC ABG pO2 ABG pO2 ABG HCO3 ABG Base Excess ABG Hemoglobin Oxyhemoglobin Sodium Potassium Chloride Carbon Dioxide BUN Creatinine Glucose POC Glucose 109 H 110 H 124 H Lactic Acid Calcium Phosphorus Magnesium Direct Bilirubin AST ALT Alkaline Phosphatase Lactate Dehydrogenase Troponin T C-Reactive Protein Total Protein Albumin Prealbumin Triglycerides Cholesterol LDL Cholesterol Direct HDL Cholesterol Urine pH Urine WBC (Auto) Urine Creatinine Urine Total Protein Fluid Total Protein Vancomycin Trough Rheumatoid Factor Complement C4 Miscellaneous Test Crossmatch 10/29/16 10/29/16 10/29/16 07:45 07:45 12:19 WBC 14.7 H RBC 3.15 L Hgb 9.3 L Hct 28.9 L MCV MCH MCHC RDW 17.0 H Plt Count Lymph % (Auto) 11.9 L [place] % (Auto) 8.6 H Lymph # [place] # 1.3 H Baso # Seg Neutrophils % 78.1 H Seg Neuts % (Manual) Lymphocytes % (Manual) Monocytes % (Manual) Eosinophils % (Manual) Basophils % (Manual) Nucleated RBC % Seg Neutrophils # 11.4 H Seg Neutrophils # Man Lymphocytes # (Manual) Monocytes # (Manual) Eosinophils # (Manual) PT INR Fibrinogen dRVVT Confirm Interp Factor V Activity POC ABG pH POC ABG pCO2 POC ABG pO2 ABG pO2 ABG HCO3 ABG Base Excess ABG Hemoglobin Oxyhemoglobin Sodium Potassium 5.1 H Chloride Carbon Dioxide 19 L BUN 78 H Creatinine 2.2 H Glucose 116 H POC Glucose 118 H Lactic Acid Calcium Phosphorus Magnesium Direct Bilirubin AST ALT Alkaline Phosphatase Lactate Dehydrogenase Troponin T C-Reactive Protein Total Protein Albumin Prealbumin Triglycerides Cholesterol LDL Cholesterol Direct HDL Cholesterol Urine pH Urine WBC (Auto) Urine Creatinine Urine Total Protein Fluid Total Protein Vancomycin Trough Rheumatoid Factor Complement C4 Miscellaneous Test Crossmatch 10/29/16 10/30/16 10/30/16 17:49 01:52 03:28 WBC RBC Hgb Hct MCV MCH MCHC RDW Plt Count Lymph % (Auto) [place] % (Auto) Lymph # [place] # Baso # Seg Neutrophils % Seg Neuts % (Manual) Lymphocytes % (Manual) Monocytes % (Manual) Eosinophils % (Manual) Basophils % (Manual) Nucleated RBC % Seg Neutrophils # Seg Neutrophils # Man Lymphocytes # (Manual) Monocytes # (Manual) Eosinophils # (Manual) PT INR Fibrinogen dRVVT Confirm Interp Factor V Activity POC ABG pH POC ABG pCO2 POC ABG pO2 ABG pO2 ABG HCO3 ABG Base Excess ABG Hemoglobin Oxyhemoglobin Sodium Potassium 5.4 H Chloride 97.5 L Carbon Dioxide 19 L BUN 90 H Creatinine 2.5 H Glucose POC Glucose 120 H 129 H Lactic Acid Calcium Phosphorus 5.20 H Magnesium Direct Bilirubin AST ALT Alkaline Phosphatase Lactate Dehydrogenase Troponin T C-Reactive Protein Total Protein Albumin Prealbumin Triglycerides Cholesterol LDL Cholesterol Direct HDL Cholesterol Urine pH Urine WBC (Auto) Urine Creatinine Urine Total Protein Fluid Total Protein Vancomycin Trough Rheumatoid Factor Complement C4 Miscellaneous Test Crossmatch 10/30/16 10/30/16 10/30/16 03:28 08:19 08:19 WBC 11.6 H 15.9 H RBC 2.75 L 2.82 L Hgb 7.9 L 8.3 L Hct 24.2 L 25.2 L MCV MCH MCHC RDW 16.7 H 17.2 H Plt Count Lymph % (Auto) [place] % (Auto) 9.8 H Lymph # [place] # 1.1 H Baso # Seg Neutrophils % 74.2 H Seg Neuts % (Manual) Lymphocytes % (Manual) Monocytes % (Manual) Eosinophils % (Manual) Basophils % (Manual) Nucleated RBC % Seg Neutrophils # 8.6 H Seg Neutrophils # Man Lymphocytes # (Manual) Monocytes # (Manual) Eosinophils # (Manual) PT INR Fibrinogen dRVVT Confirm Interp Factor V Activity POC ABG pH POC ABG pCO2 POC ABG pO2 ABG pO2 ABG HCO3 ABG Base Excess ABG Hemoglobin Oxyhemoglobin Sodium Potassium 5.3 H Chloride 97.4 L Carbon Dioxide 19 L BUN 93 H Creatinine 2.6 H Glucose POC Glucose Lactic Acid Calcium Phosphorus Magnesium Direct Bilirubin AST ALT Alkaline Phosphatase Lactate Dehydrogenase Troponin T C-Reactive Protein Total Protein Albumin Prealbumin Triglycerides Cholesterol LDL Cholesterol Direct HDL Cholesterol Urine pH Urine WBC (Auto) Urine Creatinine Urine Total Protein Fluid Total Protein Vancomycin Trough Rheumatoid Factor Complement C4 Miscellaneous Test Crossmatch 10/30/16 10/30/16 10/31/16 17:11 23:56 00:40 WBC RBC Hgb Hct MCV MCH MCHC RDW Plt Count Lymph % (Auto) [place] % (Auto) Lymph # [place] # Baso # Seg Neutrophils % Seg Neuts % (Manual) Lymphocytes % (Manual) Monocytes % (Manual) Eosinophils % (Manual) Basophils % (Manual) Nucleated RBC % Seg Neutrophils # Seg Neutrophils # Man Lymphocytes # (Manual) Monocytes # (Manual) Eosinophils # (Manual) PT INR Fibrinogen dRVVT Confirm Interp Factor V Activity POC ABG pH POC ABG pCO2 POC ABG pO2 ABG pO2 ABG HCO3 ABG Base Excess ABG Hemoglobin Oxyhemoglobin Sodium Potassium Chloride Carbon Dioxide BUN Creatinine Glucose POC Glucose 106 H 117 H 120 H Lactic Acid Calcium Phosphorus Magnesium Direct Bilirubin AST ALT Alkaline Phosphatase Lactate Dehydrogenase Troponin T C-Reactive Protein Total Protein Albumin Prealbumin Triglycerides Cholesterol LDL Cholesterol Direct HDL Cholesterol Urine pH Urine WBC (Auto) Urine Creatinine Urine Total Protein Fluid Total Protein Vancomycin Trough Rheumatoid Factor Complement C4 Miscellaneous Test Crossmatch 10/31/16 10/31/16 10/31/16 05:43 07:15 07:15 WBC 12.1 H RBC 2.63 L Hgb 7.7 L Hct 23.3 L MCV MCH MCHC RDW 16.7 H Plt Count Lymph % (Auto) 11.7 L [place] % (Auto) 7.7 H Lymph # [place] # 0.9 H Baso # Seg Neutrophils % 78.0 H Seg Neuts % (Manual) Lymphocytes % (Manual) Monocytes % (Manual) Eosinophils % (Manual) Basophils % (Manual) Nucleated RBC % Seg Neutrophils # 9.4 H Seg Neutrophils # Man Lymphocytes # (Manual) Monocytes # (Manual) Eosinophils # (Manual) PT INR Fibrinogen dRVVT Confirm Interp Factor V Activity POC ABG pH POC ABG pCO2 POC ABG pO2 ABG pO2 ABG HCO3 ABG Base Excess ABG Hemoglobin Oxyhemoglobin Sodium Potassium Chloride 96.4 L Carbon Dioxide 21 L BUN 99 H Creatinine 2.6 H Glucose 144 H POC Glucose 125 H Lactic Acid Calcium Phosphorus 4.80 H Magnesium Direct Bilirubin AST ALT Alkaline Phosphatase Lactate Dehydrogenase Troponin T C-Reactive Protein Total Protein Albumin Prealbumin Triglycerides Cholesterol LDL Cholesterol Direct HDL Cholesterol Urine pH Urine WBC (Auto) Urine Creatinine Urine Total Protein Fluid Total Protein Vancomycin Trough Rheumatoid Factor Complement C4 Miscellaneous Test Crossmatch 10/31/16 10/31/16 11/01/16 11:46 18:34 00:20 WBC RBC Hgb Hct MCV MCH MCHC RDW Plt Count Lymph % (Auto) [place] % (Auto) Lymph # [place] # Baso # Seg Neutrophils % Seg Neuts % (Manual) Lymphocytes % (Manual) Monocytes % (Manual) Eosinophils % (Manual) Basophils % (Manual) Nucleated RBC % Seg Neutrophils # Seg Neutrophils # Man Lymphocytes # (Manual) Monocytes # (Manual) Eosinophils # (Manual) PT INR Fibrinogen dRVVT Confirm Interp Factor V Activity POC ABG pH POC ABG pCO2 POC ABG pO2 ABG pO2 ABG HCO3 ABG Base Excess ABG Hemoglobin Oxyhemoglobin Sodium Potassium Chloride Carbon Dioxide BUN Creatinine Glucose POC Glucose 159 H 140 H 132 H Lactic Acid Calcium Phosphorus Magnesium Direct Bilirubin AST ALT Alkaline Phosphatase Lactate Dehydrogenase Troponin T C-Reactive Protein Total Protein Albumin Prealbumin Triglycerides Cholesterol LDL Cholesterol Direct HDL Cholesterol Urine pH Urine WBC (Auto) Urine Creatinine Urine Total Protein Fluid Total Protein Vancomycin Trough Rheumatoid Factor Complement C4 Miscellaneous Test Crossmatch 11/01/16 11/01/16 11/01/16 04:55 04:55 06:11 WBC 11.2 H RBC 2.68 L Hgb 7.5 L Hct 23.7 L MCV MCH MCHC RDW 16.1 H Plt Count Lymph % (Auto) [place] % (Auto) 9.8 H Lymph # [place] # 1.1 H Baso # Seg Neutrophils % 70.8 H Seg Neuts % (Manual) Lymphocytes % (Manual) Monocytes % (Manual) Eosinophils % (Manual) Basophils % (Manual) Nucleated RBC % Seg Neutrophils # 7.9 H Seg Neutrophils # Man Lymphocytes # (Manual) Monocytes # (Manual) Eosinophils # (Manual) PT INR Fibrinogen dRVVT Confirm Interp Factor V Activity POC ABG pH POC ABG pCO2 POC ABG pO2 ABG pO2 ABG HCO3 ABG Base Excess ABG Hemoglobin Oxyhemoglobin Sodium Potassium 3.3 L D Chloride Carbon Dioxide BUN 61 H Creatinine 1.9 H Glucose 114 H POC Glucose 115 H Lactic Acid Calcium Phosphorus 1.80 L D Magnesium Direct Bilirubin AST ALT Alkaline Phosphatase Lactate Dehydrogenase Troponin T C-Reactive Protein Total Protein Albumin Prealbumin Triglycerides Cholesterol LDL Cholesterol Direct HDL Cholesterol Urine pH Urine WBC (Auto) Urine Creatinine Urine Total Protein Fluid Total Protein Vancomycin Trough Rheumatoid Factor Complement C4 Miscellaneous Test Crossmatch 11/01/16 11/01/16 11/01/16 12:29 18:23 23:58 WBC RBC Hgb Hct MCV MCH MCHC RDW Plt Count Lymph % (Auto) [place] % (Auto) Lymph # [place] # Baso # Seg Neutrophils % Seg Neuts % (Manual) Lymphocytes % (Manual) Monocytes % (Manual) Eosinophils % (Manual) Basophils % (Manual) Nucleated RBC % Seg Neutrophils # Seg Neutrophils # Man Lymphocytes # (Manual) Monocytes # (Manual) Eosinophils # (Manual) PT INR Fibrinogen dRVVT Confirm Interp Factor V Activity POC ABG pH POC ABG pCO2 POC ABG pO2 ABG pO2 ABG HCO3 ABG Base Excess ABG Hemoglobin Oxyhemoglobin Sodium Potassium Chloride Carbon Dioxide BUN Creatinine Glucose POC Glucose 142 H 143 H 128 H Lactic Acid Calcium Phosphorus Magnesium Direct Bilirubin AST ALT Alkaline Phosphatase Lactate Dehydrogenase Troponin T C-Reactive Protein Total Protein Albumin Prealbumin Triglycerides Cholesterol LDL Cholesterol Direct HDL Cholesterol Urine pH Urine WBC (Auto) Urine Creatinine Urine Total Protein Fluid Total Protein Vancomycin Trough Rheumatoid Factor Complement C4 Miscellaneous Test Crossmatch 11/02/16 11/02/16 11/02/16 04:16 05:29 11:58 WBC RBC Hgb Hct MCV MCH MCHC RDW Plt Count Lymph % (Auto) [place] % (Auto) Lymph # [place] # Baso # Seg Neutrophils % Seg Neuts % (Manual) Lymphocytes % (Manual) Monocytes % (Manual) Eosinophils % (Manual) Basophils % (Manual) Nucleated RBC % Seg Neutrophils # Seg Neutrophils # Man Lymphocytes # (Manual) Monocytes # (Manual) Eosinophils # (Manual) PT INR Fibrinogen dRVVT Confirm Interp Factor V Activity POC ABG pH POC ABG pCO2 POC ABG pO2 ABG pO2 ABG HCO3 ABG Base Excess ABG Hemoglobin Oxyhemoglobin Sodium Potassium 3.1 L Chloride Carbon Dioxide BUN 73 H Creatinine 2.3 H Glucose 112 H POC Glucose 135 H 149 H Lactic Acid Calcium Phosphorus Magnesium Direct Bilirubin AST ALT Alkaline Phosphatase Lactate Dehydrogenase Troponin T C-Reactive Protein Total Protein Albumin Prealbumin Triglycerides Cholesterol LDL Cholesterol Direct HDL Cholesterol Urine pH Urine WBC (Auto) Urine Creatinine Urine Total Protein Fluid Total Protein Vancomycin Trough Rheumatoid Factor Complement C4 Miscellaneous Test Crossmatch 11/02/16 11/02/16 11/03/16 17:42 22:54 06:00 WBC RBC Hgb Hct MCV MCH MCHC RDW Plt Count Lymph % (Auto) [place] % (Auto) Lymph # [place] # Baso # Seg Neutrophils % Seg Neuts % (Manual) Lymphocytes % (Manual) Monocytes % (Manual) Eosinophils % (Manual) Basophils % (Manual) Nucleated RBC % Seg Neutrophils # Seg Neutrophils # Man Lymphocytes # (Manual) Monocytes # (Manual) Eosinophils # (Manual) PT INR Fibrinogen dRVVT Confirm Interp Factor V Activity POC ABG pH POC ABG pCO2 POC ABG pO2 ABG pO2 ABG HCO3 ABG Base Excess ABG Hemoglobin Oxyhemoglobin Sodium Potassium Chloride 96.7 L Carbon Dioxide BUN 41 H Creatinine 1.5 H Glucose 145 H POC Glucose 182 H 115 H Lactic Acid Calcium Phosphorus 1.60 L D Magnesium 1.50 L Direct Bilirubin AST ALT Alkaline Phosphatase Lactate Dehydrogenase Troponin T C-Reactive Protein Total Protein Albumin Prealbumin Triglycerides Cholesterol LDL Cholesterol Direct HDL Cholesterol Urine pH Urine WBC (Auto) Urine Creatinine Urine Total Protein Fluid Total Protein Vancomycin Trough Rheumatoid Factor Complement C4 Miscellaneous Test Crossmatch 11/03/16 11/03/16 11/03/16 11:53 17:45 23:37 WBC RBC Hgb Hct MCV MCH MCHC RDW Plt Count Lymph % (Auto) [place] % (Auto) Lymph # [place] # Baso # Seg Neutrophils % Seg Neuts % (Manual) Lymphocytes % (Manual) Monocytes % (Manual) Eosinophils % (Manual) Basophils % (Manual) Nucleated RBC % Seg Neutrophils # Seg Neutrophils # Man Lymphocytes # (Manual) Monocytes # (Manual) Eosinophils # (Manual) PT INR Fibrinogen dRVVT Confirm Interp Factor V Activity POC ABG pH POC ABG pCO2 POC ABG pO2 ABG pO2 ABG HCO3 ABG Base Excess ABG Hemoglobin Oxyhemoglobin Sodium Potassium Chloride Carbon Dioxide BUN Creatinine Glucose POC Glucose 131 H 134 H 113 H Lactic Acid Calcium Phosphorus Magnesium Direct Bilirubin AST ALT Alkaline Phosphatase Lactate Dehydrogenase Troponin T C-Reactive Protein Total Protein Albumin Prealbumin Triglycerides Cholesterol LDL Cholesterol Direct HDL Cholesterol Urine pH Urine WBC (Auto) Urine Creatinine Urine Total Protein Fluid Total Protein Vancomycin Trough Rheumatoid Factor Complement C4 Miscellaneous Test Crossmatch 11/04/16 11/04/16 11/04/16 05:41 06:00 12:10 WBC RBC Hgb Hct MCV MCH MCHC RDW Plt Count Lymph % (Auto) [place] % (Auto) Lymph # [place] # Baso # Seg Neutrophils % Seg Neuts % (Manual) Lymphocytes % (Manual) Monocytes % (Manual) Eosinophils % (Manual) Basophils % (Manual) Nucleated RBC % Seg Neutrophils # Seg Neutrophils # Man Lymphocytes # (Manual) Monocytes # (Manual) Eosinophils # (Manual) PT INR Fibrinogen dRVVT Confirm Interp Factor V Activity POC ABG pH POC ABG pCO2 POC ABG pO2 ABG pO2 ABG HCO3 ABG Base Excess ABG Hemoglobin Oxyhemoglobin Sodium Potassium Chloride 96.7 L Carbon Dioxide BUN 52 H Creatinine 1.9 H Glucose 126 H POC Glucose 137 H 191 H Lactic Acid Calcium Phosphorus Magnesium Direct Bilirubin AST ALT Alkaline Phosphatase Lactate Dehydrogenase Troponin T C-Reactive Protein Total Protein Albumin Prealbumin Triglycerides Cholesterol LDL Cholesterol Direct HDL Cholesterol Urine pH Urine WBC (Auto) Urine Creatinine Urine Total Protein Fluid Total Protein Vancomycin Trough Rheumatoid Factor Complement C4 Miscellaneous Test Crossmatch 11/04/16 11/05/16 11/05/16 22:57 03:10 05:10 WBC RBC Hgb Hct MCV MCH MCHC RDW Plt Count Lymph % (Auto) [place] % (Auto) Lymph # [place] # Baso # Seg Neutrophils % Seg Neuts % (Manual) Lymphocytes % (Manual) Monocytes % (Manual) Eosinophils % (Manual) Basophils % (Manual) Nucleated RBC % Seg Neutrophils # Seg Neutrophils # Man Lymphocytes # (Manual) Monocytes # (Manual) Eosinophils # (Manual) PT INR Fibrinogen dRVVT Confirm Interp Factor V Activity POC ABG pH POC ABG pCO2 POC ABG pO2 ABG pO2 ABG HCO3 ABG Base Excess ABG Hemoglobin Oxyhemoglobin Sodium 136 L Potassium Chloride 97.2 L Carbon Dioxide BUN 32 H Creatinine 1.3 H Glucose 123 H POC Glucose 125 H 108 H Lactic Acid Calcium 7.8 L Phosphorus Magnesium Direct Bilirubin AST ALT Alkaline Phosphatase Lactate Dehydrogenase Troponin T C-Reactive Protein Total Protein Albumin Prealbumin Triglycerides Cholesterol LDL Cholesterol Direct HDL Cholesterol Urine pH Urine WBC (Auto) Urine Creatinine Urine Total Protein Fluid Total Protein Vancomycin Trough Rheumatoid Factor Complement C4 Miscellaneous Test Crossmatch 11/05/16 11/05/16 11/05/16 12:23 13:09 13:25 WBC RBC Hgb Hct MCV MCH MCHC RDW Plt Count Lymph % (Auto) [place] % (Auto) Lymph # [place] # Baso # Seg Neutrophils % Seg Neuts % (Manual) Lymphocytes % (Manual) Monocytes % (Manual) Eosinophils % (Manual) Basophils % (Manual) Nucleated RBC % Seg Neutrophils # Seg Neutrophils # Man Lymphocytes # (Manual) Monocytes # (Manual) Eosinophils # (Manual) PT INR Fibrinogen dRVVT Confirm Interp Factor V Activity POC ABG pH POC ABG pCO2 POC ABG pO2 ABG pO2 ABG HCO3 ABG Base Excess ABG Hemoglobin Oxyhemoglobin Sodium Potassium Chloride Carbon Dioxide BUN Creatinine Glucose POC Glucose 124 H Lactic Acid Calcium Phosphorus Magnesium Direct Bilirubin AST ALT Alkaline Phosphatase Lactate Dehydrogenase Troponin T C-Reactive Protein 11.40 H Total Protein Albumin Prealbumin Triglycerides Cholesterol LDL Cholesterol Direct HDL Cholesterol Urine pH 9.0 H Urine WBC (Auto) Urine Creatinine Urine Total Protein Fluid Total Protein Vancomycin Trough Rheumatoid Factor Complement C4 Miscellaneous Test Crossmatch 11/05/16 11/05/16 11/05/16 13:25 17:54 23:42 WBC RBC Hgb Hct MCV MCH MCHC RDW Plt Count Lymph % (Auto) [place] % (Auto) Lymph # [place] # Baso # Seg Neutrophils % Seg Neuts % (Manual) Lymphocytes % (Manual) Monocytes % (Manual) Eosinophils % (Manual) Basophils % (Manual) Nucleated RBC % Seg Neutrophils # Seg Neutrophils # Man Lymphocytes # (Manual) Monocytes # (Manual) Eosinophils # (Manual) PT INR Fibrinogen dRVVT Confirm Interp Factor V Activity POC ABG pH POC ABG pCO2 POC ABG pO2 ABG pO2 ABG HCO3 ABG Base Excess ABG Hemoglobin Oxyhemoglobin Sodium Potassium Chloride Carbon Dioxide BUN Creatinine Glucose POC Glucose 114 H 134 H Lactic Acid Calcium Phosphorus Magnesium Direct Bilirubin AST ALT Alkaline Phosphatase Lactate Dehydrogenase Troponin T C-Reactive Protein Total Protein Albumin Prealbumin Triglycerides Cholesterol LDL Cholesterol Direct HDL Cholesterol Urine pH Urine WBC (Auto) Urine Creatinine Urine Total Protein Fluid Total Protein Vancomycin Trough Rheumatoid Factor Complement C4 Miscellaneous Test Flexitest 1 H Crossmatch 11/06/16 11/06/16 11/06/16 04:56 06:25 06:25 WBC RBC 2.50 L Hgb 7.3 L Hct 22.5 L MCV MCH MCHC RDW 16.9 H Plt Count Lymph % (Auto) [place] % (Auto) 10.5 H Lymph # [place] # 1.1 H Baso # Seg Neutrophils % Seg Neuts % (Manual) Lymphocytes % (Manual) Monocytes % (Manual) Eosinophils % (Manual) Basophils % (Manual) Nucleated RBC % Seg Neutrophils # Seg Neutrophils # Man Lymphocytes # (Manual) Monocytes # (Manual) Eosinophils # (Manual) PT INR Fibrinogen dRVVT Confirm Interp Factor V Activity POC ABG pH POC ABG pCO2 POC ABG pO2 ABG pO2 ABG HCO3 ABG Base Excess ABG Hemoglobin Oxyhemoglobin Sodium Potassium 5.1 H Chloride 95.9 L Carbon Dioxide BUN 52 H Creatinine 1.8 H Glucose 117 H POC Glucose 120 H Lactic Acid Calcium Phosphorus Magnesium Direct Bilirubin AST 103 H ALT 77 H Alkaline Phosphatase 285 H Lactate Dehydrogenase Troponin T C-Reactive Protein Total Protein 6.2 L Albumin 1.8 L Prealbumin 0.180 L Triglycerides Cholesterol LDL Cholesterol Direct HDL Cholesterol Urine pH Urine WBC (Auto) Urine Creatinine Urine Total Protein Fluid Total Protein Vancomycin Trough Rheumatoid Factor Complement C4 Miscellaneous Test Crossmatch 11/06/16 11/06/16 11/06/16 11:56 17:14 23:52 WBC RBC Hgb Hct MCV MCH MCHC RDW Plt Count Lymph % (Auto) [place] % (Auto) Lymph # [place] # Baso # Seg Neutrophils % Seg Neuts % (Manual) Lymphocytes % (Manual) Monocytes % (Manual) Eosinophils % (Manual) Basophils % (Manual) Nucleated RBC % Seg Neutrophils # Seg Neutrophils # Man Lymphocytes # (Manual) Monocytes # (Manual) Eosinophils # (Manual) PT INR Fibrinogen dRVVT Confirm Interp Factor V Activity POC ABG pH POC ABG pCO2 POC ABG pO2 ABG pO2 ABG HCO3 ABG Base Excess ABG Hemoglobin Oxyhemoglobin Sodium Potassium Chloride Carbon Dioxide BUN Creatinine Glucose POC Glucose 141 H 125 H 130 H Lactic Acid Calcium Phosphorus Magnesium Direct Bilirubin AST ALT Alkaline Phosphatase Lactate Dehydrogenase Troponin T C-Reactive Protein Total Protein Albumin Prealbumin Triglycerides Cholesterol LDL Cholesterol Direct HDL Cholesterol Urine pH Urine WBC (Auto) Urine Creatinine Urine Total Protein Fluid Total Protein Vancomycin Trough Rheumatoid Factor Complement C4 Miscellaneous Test Crossmatch 11/07/16 11/07/16 11/07/16 06:30 06:30 09:37 WBC RBC 2.18 L Hgb 6.3 L Hct 19.7 L* MCV MCH MCHC RDW 16.8 H Plt Count Lymph % (Auto) [place] % (Auto) 10.0 H Lymph # [place] # 1.0 H Baso # Seg Neutrophils % Seg Neuts % (Manual) Lymphocytes % (Manual) Monocytes % (Manual) Eosinophils % (Manual) Basophils % (Manual) Nucleated RBC % Seg Neutrophils # Seg Neutrophils # Man Lymphocytes # (Manual) Monocytes # (Manual) Eosinophils # (Manual) PT INR Fibrinogen dRVVT Confirm Interp Factor V Activity POC ABG pH POC ABG pCO2 POC ABG pO2 ABG pO2 ABG HCO3 ABG Base Excess ABG Hemoglobin Oxyhemoglobin Sodium 135 L Potassium Chloride 95.6 L Carbon Dioxide BUN 70 H Creatinine 2.0 H Glucose 126 H POC Glucose Lactic Acid Calcium Phosphorus Magnesium Direct Bilirubin AST ALT Alkaline Phosphatase Lactate Dehydrogenase Troponin T C-Reactive Protein Total Protein Albumin Prealbumin Triglycerides Cholesterol LDL Cholesterol Direct HDL Cholesterol Urine pH Urine WBC (Auto) Urine Creatinine Urine Total Protein Fluid Total Protein Vancomycin Trough Rheumatoid Factor Complement C4 Miscellaneous Test Crossmatch See Detail 11/07/16 11/07/16 11/07/16 12:52 18:51 21:26 WBC RBC Hgb Hct MCV MCH MCHC RDW Plt Count Lymph % (Auto) [place] % (Auto) Lymph # [place] # Baso # Seg Neutrophils % Seg Neuts % (Manual) Lymphocytes % (Manual) Monocytes % (Manual) Eosinophils % (Manual) Basophils % (Manual) Nucleated RBC % Seg Neutrophils # Seg Neutrophils # Man Lymphocytes # (Manual) Monocytes # (Manual) Eosinophils # (Manual) PT INR Fibrinogen dRVVT Confirm Interp Factor V Activity POC ABG pH 7.523 H POC ABG pCO2 34.6 L POC ABG pO2 53 L ABG pO2 ABG HCO3 ABG Base Excess ABG Hemoglobin Oxyhemoglobin Sodium Potassium Chloride Carbon Dioxide BUN Creatinine Glucose POC Glucose 142 H 155 H Lactic Acid Calcium Phosphorus Magnesium Direct Bilirubin AST ALT Alkaline Phosphatase Lactate Dehydrogenase Troponin T C-Reactive Protein Total Protein Albumin Prealbumin Triglycerides Cholesterol LDL Cholesterol Direct HDL Cholesterol Urine pH Urine WBC (Auto) Urine Creatinine Urine Total Protein Fluid Total Protein Vancomycin Trough Rheumatoid Factor Complement C4 Miscellaneous Test Crossmatch 11/07/16 11/08/16 11/08/16 21:34 13:03 23:37 WBC RBC 2.63 L Hgb 7.7 L Hct 22.7 L MCV MCH MCHC RDW 17.0 H Plt Count Lymph % (Auto) [place] % (Auto) Lymph # [place] # Baso # Seg Neutrophils % Seg Neuts % (Manual) Lymphocytes % (Manual) Monocytes % (Manual) Eosinophils % (Manual) Basophils % (Manual) Nucleated RBC % Seg Neutrophils # Seg Neutrophils # Man Lymphocytes # (Manual) Monocytes # (Manual) Eosinophils # (Manual) PT INR Fibrinogen dRVVT Confirm Interp Factor V Activity POC ABG pH 7.478 H POC ABG pCO2 34.0 L POC ABG pO2 50 L ABG pO2 ABG HCO3 ABG Base Excess ABG Hemoglobin Oxyhemoglobin Sodium Potassium Chloride Carbon Dioxide BUN Creatinine Glucose POC Glucose 113 H Lactic Acid Calcium Phosphorus Magnesium Direct Bilirubin AST ALT Alkaline Phosphatase Lactate Dehydrogenase Troponin T C-Reactive Protein Total Protein Albumin Prealbumin Triglycerides Cholesterol LDL Cholesterol Direct HDL Cholesterol Urine pH Urine WBC (Auto) Urine Creatinine Urine Total Protein Fluid Total Protein Vancomycin Trough Rheumatoid Factor Complement C4 Miscellaneous Test Crossmatch 11/09/16 11/09/16 11/09/16 04:35 10:15 18:21 WBC RBC 2.68 L Hgb 7.8 L Hct 23.3 L MCV MCH MCHC RDW 17.0 H Plt Count Lymph % (Auto) [place] % (Auto) 12.1 H Lymph # [place] # 1.1 H Baso # Seg Neutrophils % Seg Neuts % (Manual) Lymphocytes % (Manual) Monocytes % (Manual) Eosinophils % (Manual) Basophils % (Manual) Nucleated RBC % Seg Neutrophils # Seg Neutrophils # Man Lymphocytes # (Manual) Monocytes # (Manual) Eosinophils # (Manual) PT INR Fibrinogen dRVVT Confirm Interp Factor V Activity POC ABG pH POC ABG pCO2 POC ABG pO2 ABG pO2 ABG HCO3 ABG Base Excess ABG Hemoglobin Oxyhemoglobin Sodium Potassium Chloride Carbon Dioxide BUN 51 H Creatinine 1.8 H Glucose POC Glucose 60 L Lactic Acid Calcium 8.3 L Phosphorus Magnesium Direct Bilirubin AST ALT Alkaline Phosphatase Lactate Dehydrogenase Troponin T C-Reactive Protein Total Protein Albumin Prealbumin Triglycerides Cholesterol LDL Cholesterol Direct HDL Cholesterol Urine pH Urine WBC (Auto) Urine Creatinine Urine Total Protein Fluid Total Protein Vancomycin Trough Rheumatoid Factor Complement C4 Miscellaneous Test Crossmatch 11/09/16 11/10/16 11/10/16 18:55 07:00 11:51 WBC RBC Hgb Hct MCV MCH MCHC RDW Plt Count Lymph % (Auto) [place] % (Auto) Lymph # [place] # Baso # Seg Neutrophils % Seg Neuts % (Manual) Lymphocytes % (Manual) Monocytes % (Manual) Eosinophils % (Manual) Basophils % (Manual) Nucleated RBC % Seg Neutrophils # Seg Neutrophils # Man Lymphocytes # (Manual) Monocytes # (Manual) Eosinophils # (Manual) PT INR Fibrinogen dRVVT Confirm Interp Factor V Activity POC ABG pH POC ABG pCO2 POC ABG pO2 ABG pO2 ABG HCO3 ABG Base Excess ABG Hemoglobin Oxyhemoglobin Sodium Potassium 3.0 L D Chloride 97.4 L Carbon Dioxide BUN 28 H Creatinine 1.3 H Glucose POC Glucose 68 L 120 H Lactic Acid Calcium 7.8 L Phosphorus Magnesium Direct Bilirubin AST ALT Alkaline Phosphatase Lactate Dehydrogenase Troponin T C-Reactive Protein Total Protein Albumin Prealbumin Triglycerides Cholesterol LDL Cholesterol Direct HDL Cholesterol Urine pH Urine WBC (Auto) Urine Creatinine Urine Total Protein Fluid Total Protein Vancomycin Trough Rheumatoid Factor Complement C4 Miscellaneous Test Crossmatch 11/10/16 11/11/16 11/11/16 14:20 06:59 06:59 WBC RBC 2.81 L Hgb 8.1 L Hct 24.4 L MCV MCH MCHC RDW 16.4 H Plt Count Lymph % (Auto) [place] % (Auto) 10.8 H Lymph # [place] # 1.0 H Baso # Seg Neutrophils % Seg Neuts % (Manual) Lymphocytes % (Manual) Monocytes % (Manual) Eosinophils % (Manual) Basophils % (Manual) Nucleated RBC % Seg Neutrophils # Seg Neutrophils # Man Lymphocytes # (Manual) Monocytes # (Manual) Eosinophils # (Manual) PT INR Fibrinogen dRVVT Confirm Interp Factor V Activity POC ABG pH POC ABG pCO2 POC ABG pO2 ABG pO2 ABG HCO3 ABG Base Excess ABG Hemoglobin Oxyhemoglobin Sodium Potassium Chloride Carbon Dioxide BUN Creatinine Glucose POC Glucose Lactic Acid Calcium Phosphorus Magnesium Direct Bilirubin AST ALT Alkaline Phosphatase Lactate Dehydrogenase 196 H Troponin T C-Reactive Protein Total Protein 6.1 L Albumin Prealbumin Triglycerides Cholesterol LDL Cholesterol Direct HDL Cholesterol Urine pH Urine WBC (Auto) Urine Creatinine Urine Total Protein Fluid Total Protein < 3.0 L Vancomycin Trough Rheumatoid Factor Complement C4 Miscellaneous Test Crossmatch 11/11/16 11/11/16 11/12/16 06:59 09:50 04:00 WBC RBC Hgb Hct MCV MCH MCHC RDW Plt Count Lymph % (Auto) [place] % (Auto) Lymph # [place] # Baso # Seg Neutrophils % Seg Neuts % (Manual) Lymphocytes % (Manual) Monocytes % (Manual) Eosinophils % (Manual) Basophils % (Manual) Nucleated RBC % Seg Neutrophils # Seg Neutrophils # Man Lymphocytes # (Manual) Monocytes # (Manual) Eosinophils # (Manual) PT INR 1.18 H Fibrinogen dRVVT Confirm Interp Factor V Activity POC ABG pH POC ABG pCO2 POC ABG pO2 ABG pO2 ABG HCO3 ABG Base Excess ABG Hemoglobin Oxyhemoglobin Sodium 136 L 133 L Potassium Chloride 96.1 L 94.8 L Carbon Dioxide 21 L BUN 37 H 42 H Creatinine 1.8 H 2.0 H Glucose POC Glucose Lactic Acid Calcium Phosphorus Magnesium Direct Bilirubin AST ALT Alkaline Phosphatase Lactate Dehydrogenase Troponin T C-Reactive Protein Total Protein Albumin Prealbumin Triglycerides Cholesterol LDL Cholesterol Direct HDL Cholesterol Urine pH Urine WBC (Auto) Urine Creatinine Urine Total Protein Fluid Total Protein Vancomycin Trough Rheumatoid Factor Complement C4 Miscellaneous Test Crossmatch 11/12/16 11/12/16 11/13/16 04:00 23:55 05:53 WBC RBC Hgb 8.9 L Hct 27.2 L MCV MCH MCHC RDW Plt Count Lymph % (Auto) [place] % (Auto) Lymph # [place] # Baso # Seg Neutrophils % Seg Neuts % (Manual) Lymphocytes % (Manual) Monocytes % (Manual) Eosinophils % (Manual) Basophils % (Manual) Nucleated RBC % Seg Neutrophils # Seg Neutrophils # Man Lymphocytes # (Manual) Monocytes # (Manual) Eosinophils # (Manual) PT INR Fibrinogen dRVVT Confirm Interp Factor V Activity POC ABG pH POC ABG pCO2 POC ABG pO2 ABG pO2 ABG HCO3 ABG Base Excess ABG Hemoglobin Oxyhemoglobin Sodium Potassium Chloride Carbon Dioxide BUN Creatinine Glucose POC Glucose 132 H 120 H Lactic Acid Calcium Phosphorus Magnesium Direct Bilirubin AST ALT Alkaline Phosphatase Lactate Dehydrogenase Troponin T C-Reactive Protein Total Protein Albumin Prealbumin Triglycerides Cholesterol LDL Cholesterol Direct HDL Cholesterol Urine pH Urine WBC (Auto) Urine Creatinine Urine Total Protein Fluid Total Protein Vancomycin Trough Rheumatoid Factor Complement C4 Miscellaneous Test Crossmatch 11/13/16 11/13/16 11/13/16 11:43 17:09 23:41 WBC RBC Hgb Hct MCV MCH MCHC RDW Plt Count Lymph % (Auto) [place] % (Auto) Lymph # [place] # Baso # Seg Neutrophils % Seg Neuts % (Manual) Lymphocytes % (Manual) Monocytes % (Manual) Eosinophils % (Manual) Basophils % (Manual) Nucleated RBC % Seg Neutrophils # Seg Neutrophils # Man Lymphocytes # (Manual) Monocytes # (Manual) Eosinophils # (Manual) PT INR Fibrinogen dRVVT Confirm Interp Factor V Activity POC ABG pH POC ABG pCO2 POC ABG pO2 ABG pO2 ABG HCO3 ABG Base Excess ABG Hemoglobin Oxyhemoglobin Sodium Potassium Chloride Carbon Dioxide BUN Creatinine Glucose POC Glucose 114 H 113 H 108 H Lactic Acid Calcium Phosphorus Magnesium Direct Bilirubin AST ALT Alkaline Phosphatase Lactate Dehydrogenase Troponin T C-Reactive Protein Total Protein Albumin Prealbumin Triglycerides Cholesterol LDL Cholesterol Direct HDL Cholesterol Urine pH Urine WBC (Auto) Urine Creatinine Urine Total Protein Fluid Total Protein Vancomycin Trough Rheumatoid Factor Complement C4 Miscellaneous Test Crossmatch 11/13/16 11/15/16 11/15/16 Unknown 00:37 03:30 WBC 11.2 H RBC 2.72 L Hgb 7.6 L Hct 23.4 L MCV MCH MCHC RDW 16.5 H Plt Count Lymph % (Auto) [place] % (Auto) Lymph # [place] # Baso # Seg Neutrophils % Seg Neuts % (Manual) Lymphocytes % (Manual) Monocytes % (Manual) Eosinophils % (Manual) Basophils % (Manual) Nucleated RBC % Seg Neutrophils # Seg Neutrophils # Man Lymphocytes # (Manual) Monocytes # (Manual) Eosinophils # (Manual) PT INR Fibrinogen dRVVT Confirm Interp Factor V Activity POC ABG pH POC ABG pCO2 POC ABG pO2 ABG pO2 ABG HCO3 ABG Base Excess ABG Hemoglobin Oxyhemoglobin Sodium 135 L Potassium Chloride 95.2 L Carbon Dioxide BUN 52 H Creatinine 2.2 H Glucose POC Glucose 108 H Lactic Acid Calcium Phosphorus Magnesium Direct Bilirubin AST ALT Alkaline Phosphatase Lactate Dehydrogenase Troponin T C-Reactive Protein Total Protein Albumin Prealbumin Triglycerides Cholesterol LDL Cholesterol Direct HDL Cholesterol Urine pH Urine WBC (Auto) Urine Creatinine Urine Total Protein Fluid Total Protein Vancomycin Trough Rheumatoid Factor Complement C4 Miscellaneous Test Crossmatch 11/15/16 11/15/16 11/15/16 03:30 05:04 11:50 WBC RBC Hgb Hct MCV MCH MCHC RDW Plt Count Lymph % (Auto) [place] % (Auto) Lymph # [place] # Baso # Seg Neutrophils % Seg Neuts % (Manual) Lymphocytes % (Manual) Monocytes % (Manual) Eosinophils % (Manual) Basophils % (Manual) Nucleated RBC % Seg Neutrophils # Seg Neutrophils # Man Lymphocytes # (Manual) Monocytes # (Manual) Eosinophils # (Manual) PT INR Fibrinogen dRVVT Confirm Interp Factor V Activity POC ABG pH POC ABG pCO2 POC ABG pO2 ABG pO2 ABG HCO3 ABG Base Excess ABG Hemoglobin Oxyhemoglobin Sodium Potassium 3.4 L Chloride Carbon Dioxide BUN 25 H Creatinine 1.5 H Glucose 103 H POC Glucose 121 H 144 H Lactic Acid Calcium Phosphorus Magnesium Direct Bilirubin AST ALT Alkaline Phosphatase Lactate Dehydrogenase Troponin T C-Reactive Protein Total Protein Albumin Prealbumin Triglycerides Cholesterol LDL Cholesterol Direct HDL Cholesterol Urine pH Urine WBC (Auto) Urine Creatinine Urine Total Protein Fluid Total Protein Vancomycin Trough Rheumatoid Factor Complement C4 Miscellaneous Test Crossmatch 11/15/16 11/15/16 11/16/16 21:28 23:20 11:44 WBC RBC Hgb Hct MCV MCH MCHC RDW Plt Count Lymph % (Auto) [place] % (Auto) Lymph # [place] # Baso # Seg Neutrophils % Seg Neuts % (Manual) Lymphocytes % (Manual) Monocytes % (Manual) Eosinophils % (Manual) Basophils % (Manual) Nucleated RBC % Seg Neutrophils # Seg Neutrophils # Man Lymphocytes # (Manual) Monocytes # (Manual) Eosinophils # (Manual) PT INR Fibrinogen dRVVT Confirm Interp Factor V Activity POC ABG pH 7.462 H POC ABG pCO2 POC ABG pO2 71 L ABG pO2 ABG HCO3 ABG Base Excess ABG Hemoglobin Oxyhemoglobin Sodium Potassium Chloride Carbon Dioxide BUN Creatinine Glucose POC Glucose 116 H 133 H Lactic Acid Calcium Phosphorus Magnesium Direct Bilirubin AST ALT Alkaline Phosphatase Lactate Dehydrogenase Troponin T C-Reactive Protein Total Protein Albumin Prealbumin Triglycerides Cholesterol LDL Cholesterol Direct HDL Cholesterol Urine pH Urine WBC (Auto) Urine Creatinine Urine Total Protein Fluid Total Protein Vancomycin Trough Rheumatoid Factor Complement C4 Miscellaneous Test Crossmatch 11/16/16 11/16/16 11/16/16 12:20 17:05 23:35 WBC 11.7 H RBC 2.73 L Hgb 7.6 L Hct 23.7 L MCV MCH MCHC RDW 16.6 H Plt Count Lymph % (Auto) [place] % (Auto) Lymph # [place] # Baso # Seg Neutrophils % Seg Neuts % (Manual) Lymphocytes % (Manual) Monocytes % (Manual) Eosinophils % (Manual) Basophils % (Manual) Nucleated RBC % Seg Neutrophils # Seg Neutrophils # Man Lymphocytes # (Manual) Monocytes # (Manual) Eosinophils # (Manual) PT INR Fibrinogen dRVVT Confirm Interp Factor V Activity POC ABG pH POC ABG pCO2 POC ABG pO2 ABG pO2 ABG HCO3 ABG Base Excess ABG Hemoglobin Oxyhemoglobin Sodium Potassium Chloride Carbon Dioxide BUN Creatinine Glucose POC Glucose 154 H 125 H Lactic Acid Calcium Phosphorus Magnesium Direct Bilirubin AST ALT Alkaline Phosphatase Lactate Dehydrogenase Troponin T C-Reactive Protein Total Protein Albumin Prealbumin Triglycerides Cholesterol LDL Cholesterol Direct HDL Cholesterol Urine pH Urine WBC (Auto) Urine Creatinine Urine Total Protein Fluid Total Protein Vancomycin Trough Rheumatoid Factor Complement C4 Miscellaneous Test Crossmatch 11/17/16 11/17/16 11/17/16 03:20 03:20 03:20 WBC RBC 2.55 L Hgb 7.3 L Hct 21.9 L MCV MCH MCHC RDW 16.6 H Plt Count Lymph % (Auto) [place] % (Auto) 11.5 H Lymph # [place] # 1.1 H Baso # Seg Neutrophils % Seg Neuts % (Manual) Lymphocytes % (Manual) Monocytes % (Manual) Eosinophils % (Manual) Basophils % (Manual) Nucleated RBC % Seg Neutrophils # Seg Neutrophils # Man Lymphocytes # (Manual) Monocytes # (Manual) Eosinophils # (Manual) PT 16.8 H INR 1.37 H Fibrinogen dRVVT Confirm Interp Factor V Activity POC ABG pH POC ABG pCO2 POC ABG pO2 ABG pO2 ABG HCO3 ABG Base Excess ABG Hemoglobin Oxyhemoglobin Sodium Potassium 3.5 L Chloride Carbon Dioxide BUN 21 H Creatinine Glucose POC Glucose Lactic Acid Calcium 7.9 L Phosphorus Magnesium Direct Bilirubin AST ALT Alkaline Phosphatase Lactate Dehydrogenase Troponin T C-Reactive Protein Total Protein Albumin Prealbumin Triglycerides Cholesterol LDL Cholesterol Direct HDL Cholesterol Urine pH Urine WBC (Auto) Urine Creatinine Urine Total Protein Fluid Total Protein Vancomycin Trough Rheumatoid Factor Complement C4 Miscellaneous Test Crossmatch 11/17/16 11/17/16 11/17/16 06:34 11:21 21:22 WBC RBC Hgb Hct MCV MCH MCHC RDW Plt Count Lymph % (Auto) [place] % (Auto) Lymph # [place] # Baso # Seg Neutrophils % Seg Neuts % (Manual) Lymphocytes % (Manual) Monocytes % (Manual) Eosinophils % (Manual) Basophils % (Manual) Nucleated RBC % Seg Neutrophils # Seg Neutrophils # Man Lymphocytes # (Manual) Monocytes # (Manual) Eosinophils # (Manual) PT INR Fibrinogen dRVVT Confirm Interp Factor V Activity POC ABG pH 7.467 H POC ABG pCO2 POC ABG pO2 73 L ABG pO2 ABG HCO3 ABG Base Excess ABG Hemoglobin Oxyhemoglobin Sodium Potassium Chloride Carbon Dioxide BUN Creatinine Glucose POC Glucose 121 H 119 H Lactic Acid Calcium Phosphorus Magnesium Direct Bilirubin AST ALT Alkaline Phosphatase Lactate Dehydrogenase Troponin T C-Reactive Protein Total Protein Albumin Prealbumin Triglycerides Cholesterol LDL Cholesterol Direct HDL Cholesterol Urine pH Urine WBC (Auto) Urine Creatinine Urine Total Protein Fluid Total Protein Vancomycin Trough Rheumatoid Factor Complement C4 Miscellaneous Test Crossmatch 11/18/16 11/18/16 11/19/16 12:16 17:19 00:00 WBC RBC Hgb Hct MCV MCH MCHC RDW Plt Count Lymph % (Auto) [place] % (Auto) Lymph # [place] # Baso # Seg Neutrophils % Seg Neuts % (Manual) Lymphocytes % (Manual) Monocytes % (Manual) Eosinophils % (Manual) Basophils % (Manual) Nucleated RBC % Seg Neutrophils # Seg Neutrophils # Man Lymphocytes # (Manual) Monocytes # (Manual) Eosinophils # (Manual) PT INR Fibrinogen dRVVT Confirm Interp Factor V Activity POC ABG pH POC ABG pCO2 POC ABG pO2 ABG pO2 ABG HCO3 ABG Base Excess ABG Hemoglobin Oxyhemoglobin Sodium Potassium Chloride Carbon Dioxide BUN Creatinine Glucose POC Glucose 124 H 162 H 139 H Lactic Acid Calcium Phosphorus Magnesium Direct Bilirubin AST ALT Alkaline Phosphatase Lactate Dehydrogenase Troponin T C-Reactive Protein Total Protein Albumin Prealbumin Triglycerides Cholesterol LDL Cholesterol Direct HDL Cholesterol Urine pH Urine WBC (Auto) Urine Creatinine Urine Total Protein Fluid Total Protein Vancomycin Trough Rheumatoid Factor Complement C4 Miscellaneous Test Crossmatch 11/19/16 11/19/16 11/20/16 05:00 12:43 00:40 WBC RBC Hgb Hct MCV MCH MCHC RDW Plt Count Lymph % (Auto) [place] % (Auto) Lymph # [place] # Baso # Seg Neutrophils % Seg Neuts % (Manual) Lymphocytes % (Manual) Monocytes % (Manual) Eosinophils % (Manual) Basophils % (Manual) Nucleated RBC % Seg Neutrophils # Seg Neutrophils # Man Lymphocytes # (Manual) Monocytes # (Manual) Eosinophils # (Manual) PT INR Fibrinogen dRVVT Confirm Interp Factor V Activity POC ABG pH POC ABG pCO2 POC ABG pO2 ABG pO2 ABG HCO3 ABG Base Excess ABG Hemoglobin Oxyhemoglobin Sodium Potassium Chloride Carbon Dioxide BUN Creatinine Glucose POC Glucose 110 H 125 H 136 H Lactic Acid Calcium Phosphorus Magnesium Direct Bilirubin AST ALT Alkaline Phosphatase Lactate Dehydrogenase Troponin T C-Reactive Protein Total Protein Albumin Prealbumin Triglycerides Cholesterol LDL Cholesterol Direct HDL Cholesterol Urine pH Urine WBC (Auto) Urine Creatinine Urine Total Protein Fluid Total Protein Vancomycin Trough Rheumatoid Factor Complement C4 Miscellaneous Test Crossmatch 11/20/16 11/20/16 11/20/16 05:00 05:00 05:51 WBC 13.1 H RBC 2.74 L Hgb 7.7 L Hct 23.6 L MCV MCH MCHC RDW 16.9 H Plt Count Lymph % (Auto) [place] % (Auto) 10.8 H Lymph # [place] # 1.4 H Baso # Seg Neutrophils % Seg Neuts % (Manual) Lymphocytes % (Manual) Monocytes % (Manual) Eosinophils % (Manual) Basophils % (Manual) Nucleated RBC % Seg Neutrophils # 7.9 H Seg Neutrophils # Man Lymphocytes # (Manual) Monocytes # (Manual) Eosinophils # (Manual) PT INR Fibrinogen dRVVT Confirm Interp Factor V Activity POC ABG pH POC ABG pCO2 POC ABG pO2 ABG pO2 ABG HCO3 ABG Base Excess ABG Hemoglobin Oxyhemoglobin Sodium Potassium Chloride Carbon Dioxide BUN 31 H Creatinine 1.8 H Glucose 129 H POC Glucose 133 H Lactic Acid Calcium Phosphorus Magnesium Direct Bilirubin AST ALT Alkaline Phosphatase Lactate Dehydrogenase Troponin T C-Reactive Protein Total Protein Albumin Prealbumin Triglycerides Cholesterol LDL Cholesterol Direct HDL Cholesterol Urine pH Urine WBC (Auto) Urine Creatinine Urine Total Protein Fluid Total Protein Vancomycin Trough Rheumatoid Factor Complement C4 Miscellaneous Test Crossmatch 11/20/16 11/20/16 11/21/16 12:40 18:10 01:20 WBC RBC Hgb Hct MCV MCH MCHC RDW Plt Count Lymph % (Auto) [place] % (Auto) Lymph # [place] # Baso # Seg Neutrophils % Seg Neuts % (Manual) Lymphocytes % (Manual) Monocytes % (Manual) Eosinophils % (Manual) Basophils % (Manual) Nucleated RBC % Seg Neutrophils # Seg Neutrophils # Man Lymphocytes # (Manual) Monocytes # (Manual) Eosinophils # (Manual) PT INR Fibrinogen dRVVT Confirm Interp Factor V Activity POC ABG pH POC ABG pCO2 POC ABG pO2 ABG pO2 ABG HCO3 ABG Base Excess ABG Hemoglobin Oxyhemoglobin Sodium Potassium Chloride Carbon Dioxide BUN Creatinine Glucose POC Glucose 134 H 138 H 136 H Lactic Acid Calcium Phosphorus Magnesium Direct Bilirubin AST ALT Alkaline Phosphatase Lactate Dehydrogenase Troponin T C-Reactive Protein Total Protein Albumin Prealbumin Triglycerides Cholesterol LDL Cholesterol Direct HDL Cholesterol Urine pH Urine WBC (Auto) Urine Creatinine Urine Total Protein Fluid Total Protein Vancomycin Trough Rheumatoid Factor Complement C4 Miscellaneous Test Crossmatch 11/21/16 11/21/16 11/21/16 07:04 07:45 07:45 WBC 22.0 H RBC 2.91 L Hgb 8.2 L Hct 25.4 L MCV MCH MCHC RDW 17.1 H Plt Count Lymph % (Auto) [place] % (Auto) Lymph # [place] # Baso # Seg Neutrophils % Seg Neuts % (Manual) Lymphocytes % (Manual) 8.0 L Monocytes % (Manual) Eosinophils % (Manual) Basophils % (Manual) Nucleated RBC % Seg Neutrophils # Seg Neutrophils # Man 14.7 H Lymphocytes # (Manual) Monocytes # (Manual) 1.1 H Eosinophils # (Manual) PT INR Fibrinogen dRVVT Confirm Interp Factor V Activity POC ABG pH POC ABG pCO2 POC ABG pO2 ABG pO2 ABG HCO3 ABG Base Excess ABG Hemoglobin Oxyhemoglobin Sodium Potassium Chloride Carbon Dioxide BUN 42 H Creatinine 2.0 H Glucose POC Glucose 108 H Lactic Acid Calcium Phosphorus Magnesium Direct Bilirubin AST ALT Alkaline Phosphatase Lactate Dehydrogenase Troponin T C-Reactive Protein Total Protein Albumin Prealbumin Triglycerides Cholesterol LDL Cholesterol Direct HDL Cholesterol Urine pH Urine WBC (Auto) Urine Creatinine Urine Total Protein Fluid Total Protein Vancomycin Trough Rheumatoid Factor Complement C4 Miscellaneous Test Crossmatch 11/21/16 11/21/16 11/21/16 08:38 10:09 11:20 WBC RBC Hgb Hct MCV MCH MCHC RDW Plt Count Lymph % (Auto) [place] % (Auto) Lymph # [place] # Baso # Seg Neutrophils % Seg Neuts % (Manual) Lymphocytes % (Manual) Monocytes % (Manual) Eosinophils % (Manual) Basophils % (Manual) Nucleated RBC % Seg Neutrophils # Seg Neutrophils # Man Lymphocytes # (Manual) Monocytes # (Manual) Eosinophils # (Manual) PT INR Fibrinogen dRVVT Confirm Interp Factor V Activity POC ABG pH 7.346 L POC ABG pCO2 34.4 L POC ABG pO2 314 H ABG pO2 ABG HCO3 ABG Base Excess ABG Hemoglobin Oxyhemoglobin Sodium Potassium Chloride Carbon Dioxide BUN Creatinine Glucose POC Glucose 195 H 153 H Lactic Acid Calcium Phosphorus Magnesium Direct Bilirubin AST ALT Alkaline Phosphatase Lactate Dehydrogenase Troponin T C-Reactive Protein Total Protein Albumin Prealbumin Triglycerides Cholesterol LDL Cholesterol Direct HDL Cholesterol Urine pH Urine WBC (Auto) Urine Creatinine Urine Total Protein Fluid Total Protein Vancomycin Trough Rheumatoid Factor Complement C4 Miscellaneous Test Crossmatch 11/21/16 11/22/16 11/22/16 23:37 04:48 05:00 WBC 29.7 H RBC 2.73 L Hgb 7.5 L Hct 24.2 L MCV MCH 27 L MCHC RDW 17.4 H Plt Count Lymph % (Auto) [place] % (Auto) Lymph # [place] # Baso # Seg Neutrophils % Seg Neuts % (Manual) Lymphocytes % (Manual) 7.0 L Monocytes % (Manual) Eosinophils % (Manual) Basophils % (Manual) Nucleated RBC % Seg Neutrophils # Seg Neutrophils # Man 15.4 H Lymphocytes # (Manual) Monocytes # (Manual) Eosinophils # (Manual) PT INR Fibrinogen dRVVT Confirm Interp Factor V Activity POC ABG pH POC ABG pCO2 24.6 L POC ABG pO2 189 H ABG pO2 ABG HCO3 ABG Base Excess ABG Hemoglobin Oxyhemoglobin Sodium Potassium Chloride Carbon Dioxide BUN Creatinine Glucose POC Glucose 65 L Lactic Acid Calcium Phosphorus Magnesium Direct Bilirubin AST ALT Alkaline Phosphatase Lactate Dehydrogenase Troponin T C-Reactive Protein Total Protein Albumin Prealbumin Triglycerides Cholesterol LDL Cholesterol Direct HDL Cholesterol Urine pH Urine WBC (Auto) Urine Creatinine Urine Total Protein Fluid Total Protein Vancomycin Trough Rheumatoid Factor Complement C4 Miscellaneous Test Crossmatch 11/22/16 11/23/16 11/23/16 05:00 03:44 04:06 WBC RBC 2.52 L Hgb 7.2 L Hct 21.5 L MCV MCH MCHC RDW 17.1 H Plt Count Lymph % (Auto) [place] % (Auto) 12.4 H Lymph # [place] # 1.4 H Baso # Seg Neutrophils % Seg Neuts % (Manual) Lymphocytes % (Manual) Monocytes % (Manual) Eosinophils % (Manual) Basophils % (Manual) Nucleated RBC % Seg Neutrophils # Seg Neutrophils # Man Lymphocytes # (Manual) Monocytes # (Manual) Eosinophils # (Manual) PT INR Fibrinogen dRVVT Confirm Interp Factor V Activity POC ABG pH 7.493 H POC ABG pCO2 29.5 L POC ABG pO2 49 L ABG pO2 ABG HCO3 ABG Base Excess ABG Hemoglobin Oxyhemoglobin Sodium 134 L Potassium Chloride 95.9 L Carbon Dioxide 14 L D BUN 51 H Creatinine 2.6 H Glucose POC Glucose Lactic Acid Calcium Phosphorus Magnesium Direct Bilirubin AST ALT Alkaline Phosphatase Lactate Dehydrogenase Troponin T C-Reactive Protein Total Protein Albumin Prealbumin Triglycerides Cholesterol LDL Cholesterol Direct HDL Cholesterol Urine pH Urine WBC (Auto) Urine Creatinine Urine Total Protein Fluid Total Protein Vancomycin Trough Rheumatoid Factor Complement C4 Miscellaneous Test Crossmatch 11/23/16 11/23/16 11/24/16 04:06 11:29 06:39 WBC RBC Hgb Hct MCV MCH MCHC RDW Plt Count Lymph % (Auto) [place] % (Auto) Lymph # [place] # Baso # Seg Neutrophils % Seg Neuts % (Manual) Lymphocytes % (Manual) Monocytes % (Manual) Eosinophils % (Manual) Basophils % (Manual) Nucleated RBC % Seg Neutrophils # Seg Neutrophils # Man Lymphocytes # (Manual) Monocytes # (Manual) Eosinophils # (Manual) PT INR Fibrinogen dRVVT Confirm Interp Factor V Activity POC ABG pH POC ABG pCO2 POC ABG pO2 ABG pO2 ABG HCO3 ABG Base Excess ABG Hemoglobin Oxyhemoglobin Sodium 136 L Potassium Chloride 95.2 L Carbon Dioxide BUN 60 H Creatinine 2.9 H Glucose POC Glucose 69 L 305 H Lactic Acid Calcium Phosphorus Magnesium 1.60 L Direct Bilirubin AST ALT Alkaline Phosphatase Lactate Dehydrogenase Troponin T C-Reactive Protein Total Protein Albumin Prealbumin Triglycerides Cholesterol LDL Cholesterol Direct HDL Cholesterol Urine pH Urine WBC (Auto) Urine Creatinine Urine Total Protein Fluid Total Protein Vancomycin Trough Rheumatoid Factor Complement C4 Miscellaneous Test Crossmatch 11/24/16 11/24/16 11/24/16 06:43 08:08 08:08 WBC 11.2 H RBC 2.47 L Hgb 6.8 L Hct 20.6 L MCV MCH MCHC RDW 17.0 H Plt Count Lymph % (Auto) [place] % (Auto) 10.3 H Lymph # [place] # 1.2 H Baso # Seg Neutrophils % Seg Neuts % (Manual) Lymphocytes % (Manual) Monocytes % (Manual) Eosinophils % (Manual) Basophils % (Manual) Nucleated RBC % Seg Neutrophils # Seg Neutrophils # Man Lymphocytes # (Manual) Monocytes # (Manual) Eosinophils # (Manual) PT INR Fibrinogen dRVVT Confirm Interp Factor V Activity POC ABG pH POC ABG pCO2 POC ABG pO2 ABG pO2 ABG HCO3 ABG Base Excess ABG Hemoglobin Oxyhemoglobin Sodium 135 L Potassium Chloride 96.3 L Carbon Dioxide BUN 61 H Creatinine 3.1 H Glucose POC Glucose 62 L Lactic Acid Calcium 8.2 L Phosphorus Magnesium Direct Bilirubin AST ALT Alkaline Phosphatase Lactate Dehydrogenase Troponin T C-Reactive Protein Total Protein Albumin Prealbumin Triglycerides Cholesterol LDL Cholesterol Direct HDL Cholesterol Urine pH Urine WBC (Auto) Urine Creatinine Urine Total Protein Fluid Total Protein Vancomycin Trough Rheumatoid Factor Complement C4 Miscellaneous Test Crossmatch 11/24/16 11/24/16 11/24/16 08:34 11:20 12:41 WBC RBC Hgb Hct MCV MCH MCHC RDW Plt Count Lymph % (Auto) [place] % (Auto) Lymph # [place] # Baso # Seg Neutrophils % Seg Neuts % (Manual) Lymphocytes % (Manual) Monocytes % (Manual) Eosinophils % (Manual) Basophils % (Manual) Nucleated RBC % Seg Neutrophils # Seg Neutrophils # Man Lymphocytes # (Manual) Monocytes # (Manual) Eosinophils # (Manual) PT INR Fibrinogen dRVVT Confirm Interp Factor V Activity POC ABG pH POC ABG pCO2 POC ABG pO2 ABG pO2 ABG HCO3 ABG Base Excess ABG Hemoglobin Oxyhemoglobin Sodium Potassium Chloride Carbon Dioxide BUN Creatinine Glucose POC Glucose 108 H Lactic Acid Calcium Phosphorus Magnesium 1.60 L Direct Bilirubin AST ALT Alkaline Phosphatase Lactate Dehydrogenase Troponin T C-Reactive Protein Total Protein Albumin Prealbumin Triglycerides Cholesterol LDL Cholesterol Direct HDL Cholesterol Urine pH Urine WBC (Auto) Urine Creatinine Urine Total Protein Fluid Total Protein Vancomycin Trough Rheumatoid Factor Complement C4 Miscellaneous Test Crossmatch See Detail 11/25/16 11/25/16 11/25/16 00:03 04:42 04:42 WBC RBC 3.03 L Hgb 8.6 L Hct 25.3 L MCV MCH MCHC RDW 16.2 H Plt Count Lymph % (Auto) [place] % (Auto) 8.1 H Lymph # [place] # Baso # Seg Neutrophils % 71.3 H Seg Neuts % (Manual) Lymphocytes % (Manual) Monocytes % (Manual) Eosinophils % (Manual) Basophils % (Manual) Nucleated RBC % Seg Neutrophils # Seg Neutrophils # Man Lymphocytes # (Manual) Monocytes # (Manual) Eosinophils # (Manual) PT INR Fibrinogen dRVVT Confirm Interp Factor V Activity POC ABG pH POC ABG pCO2 POC ABG pO2 ABG pO2 ABG HCO3 ABG Base Excess ABG Hemoglobin Oxyhemoglobin Sodium Potassium Chloride Carbon Dioxide BUN 61 H Creatinine 3.0 H Glucose 102 H POC Glucose 113 H Lactic Acid Calcium 8.2 L Phosphorus Magnesium Direct Bilirubin AST ALT Alkaline Phosphatase 142 H Lactate Dehydrogenase Troponin T C-Reactive Protein Total Protein 5.7 L Albumin 1.5 L Prealbumin Triglycerides Cholesterol LDL Cholesterol Direct HDL Cholesterol Urine pH Urine WBC (Auto) Urine Creatinine Urine Total Protein Fluid Total Protein Vancomycin Trough Rheumatoid Factor Complement C4 Miscellaneous Test Crossmatch 11/25/16 11/25/16 11/25/16 05:12 11:31 14:12 WBC RBC Hgb Hct MCV MCH MCHC RDW Plt Count Lymph % (Auto) [place] % (Auto) Lymph # [place] # Baso # Seg Neutrophils % Seg Neuts % (Manual) Lymphocytes % (Manual) Monocytes % (Manual) Eosinophils % (Manual) Basophils % (Manual) Nucleated RBC % Seg Neutrophils # Seg Neutrophils # Man Lymphocytes # (Manual) Monocytes # (Manual) Eosinophils # (Manual) PT INR Fibrinogen dRVVT Confirm Interp Factor V Activity POC ABG pH 7.487 H POC ABG pCO2 POC ABG pO2 153 H ABG pO2 ABG HCO3 ABG Base Excess ABG Hemoglobin Oxyhemoglobin Sodium Potassium Chloride Carbon Dioxide BUN Creatinine Glucose POC Glucose 131 H 140 H Lactic Acid Calcium Phosphorus Magnesium Direct Bilirubin AST ALT Alkaline Phosphatase Lactate Dehydrogenase Troponin T C-Reactive Protein Total Protein Albumin Prealbumin Triglycerides Cholesterol LDL Cholesterol Direct HDL Cholesterol Urine pH Urine WBC (Auto) Urine Creatinine Urine Total Protein Fluid Total Protein Vancomycin Trough Rheumatoid Factor Complement C4 Miscellaneous Test Crossmatch 11/25/16 11/26/16 11/26/16 17:23 00:09 05:13 WBC RBC 2.94 L Hgb 8.4 L Hct 24.6 L MCV MCH MCHC RDW 16.4 H Plt Count Lymph % (Auto) [place] % (Auto) 12.3 H Lymph # [place] # 1.1 H Baso # Seg Neutrophils % Seg Neuts % (Manual) Lymphocytes % (Manual) Monocytes % (Manual) Eosinophils % (Manual) Basophils % (Manual) Nucleated RBC % Seg Neutrophils # Seg Neutrophils # Man Lymphocytes # (Manual) Monocytes # (Manual) Eosinophils # (Manual) PT INR Fibrinogen dRVVT Confirm Interp Factor V Activity POC ABG pH POC ABG pCO2 POC ABG pO2 ABG pO2 ABG HCO3 ABG Base Excess ABG Hemoglobin Oxyhemoglobin Sodium Potassium Chloride Carbon Dioxide BUN Creatinine Glucose POC Glucose 146 H 112 H Lactic Acid Calcium Phosphorus Magnesium Direct Bilirubin AST ALT Alkaline Phosphatase Lactate Dehydrogenase Troponin T C-Reactive Protein Total Protein Albumin Prealbumin Triglycerides Cholesterol LDL Cholesterol Direct HDL Cholesterol Urine pH Urine WBC (Auto) Urine Creatinine Urine Total Protein Fluid Total Protein Vancomycin Trough Rheumatoid Factor Complement C4 Miscellaneous Test Crossmatch 11/26/16 11/26/16 11/26/16 05:13 05:28 11:53 WBC RBC Hgb Hct MCV MCH MCHC RDW Plt Count Lymph % (Auto) [place] % (Auto) Lymph # [place] # Baso # Seg Neutrophils % Seg Neuts % (Manual) Lymphocytes % (Manual) Monocytes % (Manual) Eosinophils % (Manual) Basophils % (Manual) Nucleated RBC % Seg Neutrophils # Seg Neutrophils # Man Lymphocytes # (Manual) Monocytes # (Manual) Eosinophils # (Manual) PT INR Fibrinogen dRVVT Confirm Interp Factor V Activity POC ABG pH POC ABG pCO2 POC ABG pO2 ABG pO2 ABG HCO3 ABG Base Excess ABG Hemoglobin Oxyhemoglobin Sodium Potassium Chloride 97.8 L Carbon Dioxide BUN 37 H Creatinine 2.0 H Glucose 109 H POC Glucose 117 H 111 H Lactic Acid Calcium 7.9 L Phosphorus 1.80 L D Magnesium Direct Bilirubin AST ALT Alkaline Phosphatase Lactate Dehydrogenase Troponin T C-Reactive Protein Total Protein Albumin Prealbumin Triglycerides Cholesterol LDL Cholesterol Direct HDL Cholesterol Urine pH Urine WBC (Auto) Urine Creatinine Urine Total Protein Fluid Total Protein Vancomycin Trough Rheumatoid Factor Complement C4 Miscellaneous Test Crossmatch 11/26/16 11/27/16 11/27/16 17:14 04:50 06:02 WBC RBC Hgb Hct MCV MCH MCHC RDW Plt Count Lymph % (Auto) [place] % (Auto) Lymph # [place] # Baso # Seg Neutrophils % Seg Neuts % (Manual) Lymphocytes % (Manual) Monocytes % (Manual) Eosinophils % (Manual) Basophils % (Manual) Nucleated RBC % Seg Neutrophils # Seg Neutrophils # Man Lymphocytes # (Manual) Monocytes # (Manual) Eosinophils # (Manual) PT INR Fibrinogen dRVVT Confirm Interp Factor V Activity POC ABG pH POC ABG pCO2 POC ABG pO2 ABG pO2 75.2 L ABG HCO3 26.4 H ABG Base Excess ABG Hemoglobin 7.6 L Oxyhemoglobin 94.8 L Sodium Potassium Chloride Carbon Dioxide BUN 49 H Creatinine 2.3 H Glucose POC Glucose 115 H Lactic Acid Calcium Phosphorus 1.50 L Magnesium Direct Bilirubin AST ALT Alkaline Phosphatase Lactate Dehydrogenase Troponin T C-Reactive Protein Total Protein Albumin Prealbumin Triglycerides Cholesterol LDL Cholesterol Direct HDL Cholesterol Urine pH Urine WBC (Auto) Urine Creatinine Urine Total Protein Fluid Total Protein Vancomycin Trough Rheumatoid Factor Complement C4 Miscellaneous Test Crossmatch 11/27/16 11/27/16 11/27/16 06:02 11:25 17:25 WBC 11.6 H RBC 2.75 L Hgb 7.6 L Hct 23.4 L MCV MCH MCHC RDW 16.5 H Plt Count Lymph % (Auto) [place] % (Auto) Lymph # [place] # Baso # Seg Neutrophils % Seg Neuts % (Manual) Lymphocytes % (Manual) Monocytes % (Manual) Eosinophils % (Manual) Basophils % (Manual) Nucleated RBC % Seg Neutrophils # Seg Neutrophils # Man Lymphocytes # (Manual) Monocytes # (Manual) Eosinophils # (Manual) PT INR Fibrinogen dRVVT Confirm Interp Factor V Activity POC ABG pH POC ABG pCO2 POC ABG pO2 ABG pO2 ABG HCO3 ABG Base Excess ABG Hemoglobin Oxyhemoglobin Sodium Potassium Chloride Carbon Dioxide BUN Creatinine Glucose POC Glucose 114 H 126 H Lactic Acid Calcium Phosphorus Magnesium Direct Bilirubin AST ALT Alkaline Phosphatase Lactate Dehydrogenase Troponin T C-Reactive Protein Total Protein Albumin Prealbumin Triglycerides Cholesterol LDL Cholesterol Direct HDL Cholesterol Urine pH Urine WBC (Auto) Urine Creatinine Urine Total Protein Fluid Total Protein Vancomycin Trough Rheumatoid Factor Complement C4 Miscellaneous Test Crossmatch 11/28/16 11/28/16 11/28/16 04:45 05:33 05:44 WBC RBC Hgb Hct MCV MCH MCHC RDW Plt Count Lymph % (Auto) [place] % (Auto) Lymph # [place] # Baso # Seg Neutrophils % Seg Neuts % (Manual) Lymphocytes % (Manual) Monocytes % (Manual) Eosinophils % (Manual) Basophils % (Manual) Nucleated RBC % Seg Neutrophils # Seg Neutrophils # Man Lymphocytes # (Manual) Monocytes # (Manual) Eosinophils # (Manual) PT INR Fibrinogen dRVVT Confirm Interp Factor V Activity POC ABG pH POC ABG pCO2 POC ABG pO2 ABG pO2 99.3 H ABG HCO3 ABG Base Excess ABG Hemoglobin 8.3 L Oxyhemoglobin Sodium Potassium Chloride Carbon Dioxide BUN 63 H Creatinine 2.4 H Glucose 102 H POC Glucose 108 H Lactic Acid Calcium Phosphorus 1.80 L Magnesium Direct Bilirubin AST ALT Alkaline Phosphatase Lactate Dehydrogenase Troponin T C-Reactive Protein Total Protein Albumin Prealbumin Triglycerides Cholesterol LDL Cholesterol Direct HDL Cholesterol Urine pH Urine WBC (Auto) Urine Creatinine Urine Total Protein Fluid Total Protein Vancomycin Trough Rheumatoid Factor Complement C4 Miscellaneous Test Crossmatch 11/28/16 11/28/16 11/28/16 12:31 16:09 23:46 WBC RBC Hgb Hct MCV MCH MCHC RDW Plt Count Lymph % (Auto) [place] % (Auto) Lymph # [place] # Baso # Seg Neutrophils % Seg Neuts % (Manual) Lymphocytes % (Manual) Monocytes % (Manual) Eosinophils % (Manual) Basophils % (Manual) Nucleated RBC % Seg Neutrophils # Seg Neutrophils # Man Lymphocytes # (Manual) Monocytes # (Manual) Eosinophils # (Manual) PT INR Fibrinogen dRVVT Confirm Interp Factor V Activity POC ABG pH POC ABG pCO2 POC ABG pO2 ABG pO2 ABG HCO3 ABG Base Excess ABG Hemoglobin Oxyhemoglobin Sodium Potassium Chloride Carbon Dioxide BUN Creatinine Glucose POC Glucose 126 H 111 H 119 H Lactic Acid Calcium Phosphorus Magnesium Direct Bilirubin AST ALT Alkaline Phosphatase Lactate Dehydrogenase Troponin T C-Reactive Protein Total Protein Albumin Prealbumin Triglycerides Cholesterol LDL Cholesterol Direct HDL Cholesterol Urine pH Urine WBC (Auto) Urine Creatinine Urine Total Protein Fluid Total Protein Vancomycin Trough Rheumatoid Factor Complement C4 Miscellaneous Test Crossmatch 11/29/16 11/29/16 11/29/16 03:33 04:52 05:10 WBC RBC Hgb Hct MCV MCH MCHC RDW Plt Count Lymph % (Auto) [place] % (Auto) Lymph # [place] # Baso # Seg Neutrophils % Seg Neuts % (Manual) Lymphocytes % (Manual) Monocytes % (Manual) Eosinophils % (Manual) Basophils % (Manual) Nucleated RBC % Seg Neutrophils # Seg Neutrophils # Man Lymphocytes # (Manual) Monocytes # (Manual) Eosinophils # (Manual) PT INR Fibrinogen dRVVT Confirm Interp Factor V Activity POC ABG pH POC ABG pCO2 POC ABG pO2 ABG pO2 ABG HCO3 ABG Base Excess ABG Hemoglobin 7.0 L Oxyhemoglobin 94.9 L Sodium Potassium Chloride Carbon Dioxide BUN 73 H Creatinine 2.7 H Glucose POC Glucose 108 H Lactic Acid Calcium Phosphorus Magnesium Direct Bilirubin AST ALT Alkaline Phosphatase Lactate Dehydrogenase Troponin T C-Reactive Protein Total Protein Albumin Prealbumin Triglycerides Cholesterol LDL Cholesterol Direct HDL Cholesterol Urine pH Urine WBC (Auto) Urine Creatinine Urine Total Protein Fluid Total Protein Vancomycin Trough Rheumatoid Factor Complement C4 Miscellaneous Test Crossmatch 11/29/16 11/29/16 11/29/16 12:16 18:05 23:46 WBC RBC Hgb Hct MCV MCH MCHC RDW Plt Count Lymph % (Auto) [place] % (Auto) Lymph # [place] # Baso # Seg Neutrophils % Seg Neuts % (Manual) Lymphocytes % (Manual) Monocytes % (Manual) Eosinophils % (Manual) Basophils % (Manual) Nucleated RBC % Seg Neutrophils # Seg Neutrophils # Man Lymphocytes # (Manual) Monocytes # (Manual) Eosinophils # (Manual) PT INR Fibrinogen dRVVT Confirm Interp Factor V Activity POC ABG pH POC ABG pCO2 POC ABG pO2 ABG pO2 ABG HCO3 ABG Base Excess ABG Hemoglobin Oxyhemoglobin Sodium Potassium Chloride Carbon Dioxide BUN Creatinine Glucose POC Glucose 133 H 146 H 141 H Lactic Acid Calcium Phosphorus Magnesium Direct Bilirubin AST ALT Alkaline Phosphatase Lactate Dehydrogenase Troponin T C-Reactive Protein Total Protein Albumin Prealbumin Triglycerides Cholesterol LDL Cholesterol Direct HDL Cholesterol Urine pH Urine WBC (Auto) Urine Creatinine Urine Total Protein Fluid Total Protein Vancomycin Trough Rheumatoid Factor Complement C4 Miscellaneous Test Crossmatch 11/30/16 11/30/16 11/30/16 04:17 04:17 04:32 WBC 12.0 H RBC 2.80 L Hgb 7.8 L Hct 23.6 L MCV MCH MCHC RDW 16.6 H Plt Count Lymph % (Auto) [place] % (Auto) 11.3 H Lymph # [place] # 1.4 H Baso # Seg Neutrophils % Seg Neuts % (Manual) Lymphocytes % (Manual) Monocytes % (Manual) Eosinophils % (Manual) Basophils % (Manual) Nucleated RBC % Seg Neutrophils # 8.2 H Seg Neutrophils # Man Lymphocytes # (Manual) Monocytes # (Manual) Eosinophils # (Manual) PT INR Fibrinogen dRVVT Confirm Interp Factor V Activity POC ABG pH POC ABG pCO2 POC ABG pO2 ABG pO2 ABG HCO3 ABG Base Excess ABG Hemoglobin Oxyhemoglobin Sodium 169 H* D Potassium 5.1 H Chloride 121.5 H Carbon Dioxide BUN 34 H Creatinine 1.3 H D Glucose 133 H POC Glucose 131 H Lactic Acid Calcium 10.3 H Phosphorus Magnesium Direct Bilirubin AST ALT Alkaline Phosphatase Lactate Dehydrogenase Troponin T C-Reactive Protein Total Protein Albumin Prealbumin Triglycerides Cholesterol LDL Cholesterol Direct HDL Cholesterol Urine pH Urine WBC (Auto) Urine Creatinine Urine Total Protein Fluid Total Protein Vancomycin Trough Rheumatoid Factor Complement C4 Miscellaneous Test Crossmatch 11/30/16 11/30/16 11/30/16 05:45 11:10 17:26 WBC RBC Hgb Hct MCV MCH MCHC RDW Plt Count Lymph % (Auto) [place] % (Auto) Lymph # [place] # Baso # Seg Neutrophils % Seg Neuts % (Manual) Lymphocytes % (Manual) Monocytes % (Manual) Eosinophils % (Manual) Basophils % (Manual) Nucleated RBC % Seg Neutrophils # Seg Neutrophils # Man Lymphocytes # (Manual) Monocytes # (Manual) Eosinophils # (Manual) PT INR Fibrinogen dRVVT Confirm Interp Factor V Activity POC ABG pH POC ABG pCO2 POC ABG pO2 ABG pO2 ABG HCO3 ABG Base Excess ABG Hemoglobin Oxyhemoglobin Sodium Potassium Chloride Carbon Dioxide BUN 45 H Creatinine 1.6 H Glucose 131 H POC Glucose 146 H 134 H Lactic Acid Calcium Phosphorus Magnesium Direct Bilirubin AST ALT Alkaline Phosphatase Lactate Dehydrogenase Troponin T C-Reactive Protein Total Protein Albumin Prealbumin Triglycerides Cholesterol LDL Cholesterol Direct HDL Cholesterol Urine pH Urine WBC (Auto) Urine Creatinine Urine Total Protein Fluid Total Protein Vancomycin Trough Rheumatoid Factor Complement C4 Miscellaneous Test Crossmatch 11/30/16 12/01/16 12/01/16 23:35 00:06 03:35 WBC RBC Hgb Hct MCV MCH MCHC RDW Plt Count Lymph % (Auto) [place] % (Auto) Lymph # [place] # Baso # Seg Neutrophils % Seg Neuts % (Manual) Lymphocytes % (Manual) Monocytes % (Manual) Eosinophils % (Manual) Basophils % (Manual) Nucleated RBC % Seg Neutrophils # Seg Neutrophils # Man Lymphocytes # (Manual) Monocytes # (Manual) Eosinophils # (Manual) PT INR Fibrinogen dRVVT Confirm Interp Factor V Activity POC ABG pH POC ABG pCO2 POC ABG pO2 ABG pO2 ABG HCO3 ABG Base Excess ABG Hemoglobin 6.9 L Oxyhemoglobin Sodium Potassium Chloride Carbon Dioxide BUN 58 H Creatinine 1.8 H Glucose 146 H POC Glucose 151 H Lactic Acid Calcium Phosphorus Magnesium Direct Bilirubin AST ALT Alkaline Phosphatase Lactate Dehydrogenase Troponin T C-Reactive Protein Total Protein Albumin Prealbumin Triglycerides Cholesterol LDL Cholesterol Direct HDL Cholesterol Urine pH Urine WBC (Auto) Urine Creatinine Urine Total Protein Fluid Total Protein Vancomycin Trough Rheumatoid Factor Complement C4 Miscellaneous Test Crossmatch 12/01/16 12/01/16 12/01/16 03:35 05:47 11:52 WBC 12.3 H RBC 2.82 L Hgb 7.8 L Hct 23.7 L MCV MCH MCHC RDW 16.7 H Plt Count Lymph % (Auto) [place] % (Auto) 9.8 H Lymph # [place] # 1.2 H Baso # Seg Neutrophils % Seg Neuts % (Manual) Lymphocytes % (Manual) Monocytes % (Manual) Eosinophils % (Manual) Basophils % (Manual) Nucleated RBC % Seg Neutrophils # 8.4 H Seg Neutrophils # Man Lymphocytes # (Manual) Monocytes # (Manual) Eosinophils # (Manual) PT INR Fibrinogen dRVVT Confirm Interp Factor V Activity POC ABG pH POC ABG pCO2 POC ABG pO2 ABG pO2 ABG HCO3 ABG Base Excess ABG Hemoglobin Oxyhemoglobin Sodium Potassium Chloride Carbon Dioxide BUN Creatinine Glucose POC Glucose 152 H 152 H Lactic Acid Calcium Phosphorus Magnesium Direct Bilirubin AST ALT Alkaline Phosphatase Lactate Dehydrogenase Troponin T C-Reactive Protein Total Protein Albumin Prealbumin Triglycerides Cholesterol LDL Cholesterol Direct HDL Cholesterol Urine pH Urine WBC (Auto) Urine Creatinine Urine Total Protein Fluid Total Protein Vancomycin Trough Rheumatoid Factor Complement C4 Miscellaneous Test Crossmatch 12/01/16 12/01/16 12/02/16 17:40 23:41 05:00 WBC RBC Hgb Hct MCV MCH MCHC RDW Plt Count Lymph % (Auto) [place] % (Auto) Lymph # [place] # Baso # Seg Neutrophils % Seg Neuts % (Manual) Lymphocytes % (Manual) Monocytes % (Manual) Eosinophils % (Manual) Basophils % (Manual) Nucleated RBC % Seg Neutrophils # Seg Neutrophils # Man Lymphocytes # (Manual) Monocytes # (Manual) Eosinophils # (Manual) PT INR Fibrinogen dRVVT Confirm Interp Factor V Activity POC ABG pH POC ABG pCO2 POC ABG pO2 ABG pO2 ABG HCO3 ABG Base Excess ABG Hemoglobin Oxyhemoglobin Sodium Potassium Chloride Carbon Dioxide BUN 45 H Creatinine Glucose 115 H POC Glucose 140 H 144 H Lactic Acid Calcium Phosphorus Magnesium Direct Bilirubin AST ALT Alkaline Phosphatase Lactate Dehydrogenase Troponin T C-Reactive Protein Total Protein Albumin Prealbumin Triglycerides Cholesterol LDL Cholesterol Direct HDL Cholesterol Urine pH Urine WBC (Auto) Urine Creatinine Urine Total Protein Fluid Total Protein Vancomycin Trough Rheumatoid Factor Complement C4 Miscellaneous Test Crossmatch 12/02/16 12/02/16 12/02/16 05:31 11:20 17:38 WBC RBC Hgb Hct MCV MCH MCHC RDW Plt Count Lymph % (Auto) [place] % (Auto) Lymph # [place] # Baso # Seg Neutrophils % Seg Neuts % (Manual) Lymphocytes % (Manual) Monocytes % (Manual) Eosinophils % (Manual) Basophils % (Manual) Nucleated RBC % Seg Neutrophils # Seg Neutrophils # Man Lymphocytes # (Manual) Monocytes # (Manual) Eosinophils # (Manual) PT INR Fibrinogen dRVVT Confirm Interp Factor V Activity POC ABG pH POC ABG pCO2 POC ABG pO2 ABG pO2 ABG HCO3 ABG Base Excess ABG Hemoglobin Oxyhemoglobin Sodium Potassium Chloride Carbon Dioxide BUN Creatinine Glucose POC Glucose 136 H 177 H 139 H Lactic Acid Calcium Phosphorus Magnesium Direct Bilirubin AST ALT Alkaline Phosphatase Lactate Dehydrogenase Troponin T C-Reactive Protein Total Protein Albumin Prealbumin Triglycerides Cholesterol LDL Cholesterol Direct HDL Cholesterol Urine pH Urine WBC (Auto) Urine Creatinine Urine Total Protein Fluid Total Protein Vancomycin Trough Rheumatoid Factor Complement C4 Miscellaneous Test Crossmatch 12/02/16 12/03/16 12/03/16 23:43 04:00 04:00 WBC 20.4 H RBC 2.74 L Hgb 7.4 L Hct 23.6 L MCV MCH 27 L MCHC RDW 17.1 H Plt Count Lymph % (Auto) [place] % (Auto) Lymph # [place] # Baso # Seg Neutrophils % Seg Neuts % (Manual) 31.0 L Lymphocytes % (Manual) Monocytes % (Manual) Eosinophils % (Manual) Basophils % (Manual) Nucleated RBC % Seg Neutrophils # Seg Neutrophils # Man Lymphocytes # (Manual) Monocytes # (Manual) Eosinophils # (Manual) PT INR Fibrinogen dRVVT Confirm Interp Factor V Activity POC ABG pH POC ABG pCO2 POC ABG pO2 ABG pO2 ABG HCO3 ABG Base Excess ABG Hemoglobin Oxyhemoglobin Sodium Potassium Chloride Carbon Dioxide BUN 61 H Creatinine 1.6 H Glucose 119 H POC Glucose 158 H Lactic Acid Calcium Phosphorus Magnesium Direct Bilirubin AST ALT Alkaline Phosphatase Lactate Dehydrogenase Troponin T C-Reactive Protein Total Protein Albumin Prealbumin Triglycerides Cholesterol LDL Cholesterol Direct HDL Cholesterol Urine pH Urine WBC (Auto) Urine Creatinine Urine Total Protein Fluid Total Protein Vancomycin Trough Rheumatoid Factor Complement C4 Miscellaneous Test Crossmatch 12/03/16 12/03/16 12/03/16 05:02 12:11 18:16 WBC RBC Hgb Hct MCV MCH MCHC RDW Plt Count Lymph % (Auto) [place] % (Auto) Lymph # [place] # Baso # Seg Neutrophils % Seg Neuts % (Manual) Lymphocytes % (Manual) Monocytes % (Manual) Eosinophils % (Manual) Basophils % (Manual) Nucleated RBC % Seg Neutrophils # Seg Neutrophils # Man Lymphocytes # (Manual) Monocytes # (Manual) Eosinophils # (Manual) PT INR Fibrinogen dRVVT Confirm Interp Factor V Activity POC ABG pH POC ABG pCO2 POC ABG pO2 ABG pO2 ABG HCO3 ABG Base Excess ABG Hemoglobin Oxyhemoglobin Sodium Potassium Chloride Carbon Dioxide BUN Creatinine Glucose POC Glucose 146 H 157 H 124 H Lactic Acid Calcium Phosphorus Magnesium Direct Bilirubin AST ALT Alkaline Phosphatase Lactate Dehydrogenase Troponin T C-Reactive Protein Total Protein Albumin Prealbumin Triglycerides Cholesterol LDL Cholesterol Direct HDL Cholesterol Urine pH Urine WBC (Auto) Urine Creatinine Urine Total Protein Fluid Total Protein Vancomycin Trough Rheumatoid Factor Complement C4 Miscellaneous Test Crossmatch 12/03/16 12/04/16 12/04/16 23:41 04:00 04:45 WBC RBC Hgb Hct MCV MCH MCHC RDW Plt Count Lymph % (Auto) [place] % (Auto) Lymph # [place] # Baso # Seg Neutrophils % Seg Neuts % (Manual) Lymphocytes % (Manual) Monocytes % (Manual) Eosinophils % (Manual) Basophils % (Manual) Nucleated RBC % Seg Neutrophils # Seg Neutrophils # Man Lymphocytes # (Manual) Monocytes # (Manual) Eosinophils # (Manual) PT INR Fibrinogen dRVVT Confirm Interp Factor V Activity POC ABG pH POC ABG pCO2 POC ABG pO2 ABG pO2 ABG HCO3 ABG Base Excess ABG Hemoglobin Oxyhemoglobin Sodium Potassium Chloride Carbon Dioxide BUN 76 H Creatinine 1.6 H Glucose POC Glucose 130 H 136 H Lactic Acid Calcium Phosphorus Magnesium Direct Bilirubin AST ALT Alkaline Phosphatase 155 H Lactate Dehydrogenase Troponin T C-Reactive Protein Total Protein 5.5 L Albumin 1.5 L Prealbumin Triglycerides Cholesterol LDL Cholesterol Direct HDL Cholesterol Urine pH Urine WBC (Auto) Urine Creatinine Urine Total Protein Fluid Total Protein Vancomycin Trough Rheumatoid Factor Complement C4 Miscellaneous Test Crossmatch 12/04/16 12/04/16 12/05/16 12:08 17:23 00:10 WBC RBC Hgb Hct MCV MCH MCHC RDW Plt Count Lymph % (Auto) [place] % (Auto) Lymph # [place] # Baso # Seg Neutrophils % Seg Neuts % (Manual) Lymphocytes % (Manual) Monocytes % (Manual) Eosinophils % (Manual) Basophils % (Manual) Nucleated RBC % Seg Neutrophils # Seg Neutrophils # Man Lymphocytes # (Manual) Monocytes # (Manual) Eosinophils # (Manual) PT INR Fibrinogen dRVVT Confirm Interp Factor V Activity POC ABG pH POC ABG pCO2 POC ABG pO2 ABG pO2 ABG HCO3 ABG Base Excess ABG Hemoglobin Oxyhemoglobin Sodium Potassium Chloride Carbon Dioxide BUN Creatinine Glucose POC Glucose 114 H 129 H 124 H Lactic Acid Calcium Phosphorus Magnesium Direct Bilirubin AST ALT Alkaline Phosphatase Lactate Dehydrogenase Troponin T C-Reactive Protein Total Protein Albumin Prealbumin Triglycerides Cholesterol LDL Cholesterol Direct HDL Cholesterol Urine pH Urine WBC (Auto) Urine Creatinine Urine Total Protein Fluid Total Protein Vancomycin Trough Rheumatoid Factor Complement C4 Miscellaneous Test Crossmatch 12/05/16 12/05/16 12/05/16 05:00 05:00 05:18 WBC RBC Hgb Hct MCV MCH MCHC RDW Plt Count Lymph % (Auto) [place] % (Auto) Lymph # [place] # Baso # Seg Neutrophils % Seg Neuts % (Manual) Lymphocytes % (Manual) Monocytes % (Manual) Eosinophils % (Manual) Basophils % (Manual) Nucleated RBC % Seg Neutrophils # Seg Neutrophils # Man Lymphocytes # (Manual) Monocytes # (Manual) Eosinophils # (Manual) PT INR Fibrinogen dRVVT Confirm Interp Factor V Activity POC ABG pH POC ABG pCO2 POC ABG pO2 ABG pO2 ABG HCO3 ABG Base Excess ABG Hemoglobin Oxyhemoglobin Sodium Potassium Chloride Carbon Dioxide 21 L BUN 85 H Creatinine 1.9 H Glucose 131 H POC Glucose 154 H Lactic Acid Calcium Phosphorus Magnesium Direct Bilirubin AST ALT Alkaline Phosphatase Lactate Dehydrogenase Troponin T C-Reactive Protein 19.30 H Total Protein Albumin Prealbumin Triglycerides Cholesterol LDL Cholesterol Direct HDL Cholesterol Urine pH Urine WBC (Auto) Urine Creatinine Urine Total Protein Fluid Total Protein Vancomycin Trough Rheumatoid Factor Complement C4 Miscellaneous Test Crossmatch 12/05/16 12/05/16 12/05/16 11:43 17:46 23:25 WBC RBC Hgb Hct MCV MCH MCHC RDW Plt Count Lymph % (Auto) [place] % (Auto) Lymph # [place] # Baso # Seg Neutrophils % Seg Neuts % (Manual) Lymphocytes % (Manual) Monocytes % (Manual) Eosinophils % (Manual) Basophils % (Manual) Nucleated RBC % Seg Neutrophils # Seg Neutrophils # Man Lymphocytes # (Manual) Monocytes # (Manual) Eosinophils # (Manual) PT INR Fibrinogen dRVVT Confirm Interp Factor V Activity POC ABG pH POC ABG pCO2 POC ABG pO2 ABG pO2 ABG HCO3 ABG Base Excess ABG Hemoglobin Oxyhemoglobin Sodium Potassium Chloride Carbon Dioxide BUN Creatinine Glucose POC Glucose 117 H 113 H 111 H Lactic Acid Calcium Phosphorus Magnesium Direct Bilirubin AST ALT Alkaline Phosphatase Lactate Dehydrogenase Troponin T C-Reactive Protein Total Protein Albumin Prealbumin Triglycerides Cholesterol LDL Cholesterol Direct HDL Cholesterol Urine pH Urine WBC (Auto) Urine Creatinine Urine Total Protein Fluid Total Protein Vancomycin Trough Rheumatoid Factor Complement C4 Miscellaneous Test Crossmatch 12/05/16 12/06/16 12/06/16 Unknown 04:58 06:00 WBC RBC Hgb Hct MCV MCH MCHC RDW Plt Count Lymph % (Auto) [place] % (Auto) Lymph # [place] # Baso # Seg Neutrophils % Seg Neuts % (Manual) Lymphocytes % (Manual) Monocytes % (Manual) Eosinophils % (Manual) Basophils % (Manual) Nucleated RBC % Seg Neutrophils # Seg Neutrophils # Man Lymphocytes # (Manual) Monocytes # (Manual) Eosinophils # (Manual) PT INR Fibrinogen dRVVT Confirm Interp Factor V Activity POC ABG pH POC ABG pCO2 POC ABG pO2 ABG pO2 75.2 L ABG HCO3 ABG Base Excess -3.4 L ABG Hemoglobin 7.4 L Oxyhemoglobin 94.5 L Sodium Potassium Chloride Carbon Dioxide 20 L BUN 99 H Creatinine 2.1 H Glucose 126 H POC Glucose 145 H Lactic Acid Calcium Phosphorus 4.80 H Magnesium Direct Bilirubin AST ALT Alkaline Phosphatase Lactate Dehydrogenase Troponin T C-Reactive Protein Total Protein Albumin Prealbumin Triglycerides Cholesterol LDL Cholesterol Direct HDL Cholesterol Urine pH Urine WBC (Auto) Urine Creatinine Urine Total Protein Fluid Total Protein Vancomycin Trough Rheumatoid Factor Complement C4 Miscellaneous Test Crossmatch 12/06/16 12/06/16 12/06/16 06:46 11:54 17:55 WBC RBC Hgb 8.3 L Hct 26.4 L MCV MCH MCHC RDW Plt Count Lymph % (Auto) [place] % (Auto) Lymph # [place] # Baso # Seg Neutrophils % Seg Neuts % (Manual) Lymphocytes % (Manual) Monocytes % (Manual) Eosinophils % (Manual) Basophils % (Manual) Nucleated RBC % Seg Neutrophils # Seg Neutrophils # Man Lymphocytes # (Manual) Monocytes # (Manual) Eosinophils # (Manual) PT INR Fibrinogen dRVVT Confirm Interp Factor V Activity POC ABG pH POC ABG pCO2 POC ABG pO2 ABG pO2 ABG HCO3 ABG Base Excess ABG Hemoglobin Oxyhemoglobin Sodium Potassium Chloride Carbon Dioxide BUN Creatinine Glucose POC Glucose 126 H 157 H Lactic Acid Calcium Phosphorus Magnesium Direct Bilirubin AST ALT Alkaline Phosphatase Lactate Dehydrogenase Troponin T C-Reactive Protein Total Protein Albumin Prealbumin Triglycerides Cholesterol LDL Cholesterol Direct HDL Cholesterol Urine pH Urine WBC (Auto) Urine Creatinine Urine Total Protein Fluid Total Protein Vancomycin Trough Rheumatoid Factor Complement C4 Miscellaneous Test Crossmatch 12/06/16 12/07/16 12/07/16 23:59 05:34 06:30 WBC RBC Hgb Hct MCV MCH MCHC RDW Plt Count Lymph % (Auto) [place] % (Auto) Lymph # [place] # Baso # Seg Neutrophils % Seg Neuts % (Manual) Lymphocytes % (Manual) Monocytes % (Manual) Eosinophils % (Manual) Basophils % (Manual) Nucleated RBC % Seg Neutrophils # Seg Neutrophils # Man Lymphocytes # (Manual) Monocytes # (Manual) Eosinophils # (Manual) PT INR Fibrinogen dRVVT Confirm Interp Factor V Activity POC ABG pH POC ABG pCO2 POC ABG pO2 ABG pO2 ABG HCO3 ABG Base Excess ABG Hemoglobin Oxyhemoglobin Sodium Potassium Chloride Carbon Dioxide BUN 67 H Creatinine 1.4 H Glucose 126 H POC Glucose 129 H 129 H Lactic Acid Calcium Phosphorus Magnesium Direct Bilirubin AST ALT Alkaline Phosphatase Lactate Dehydrogenase Troponin T C-Reactive Protein Total Protein Albumin Prealbumin Triglycerides Cholesterol LDL Cholesterol Direct HDL Cholesterol Urine pH Urine WBC (Auto) Urine Creatinine Urine Total Protein Fluid Total Protein Vancomycin Trough Rheumatoid Factor Complement C4 Miscellaneous Test Crossmatch 12/07/16 12/07/16 12/07/16 06:30 08:00 09:45 WBC 18.8 H RBC 2.52 L Hgb 6.9 L 6.8 L Hct 21.2 L 21.1 L MCV MCH 27 L MCHC RDW 18.0 H Plt Count Lymph % (Auto) [place] % (Auto) 9.9 H Lymph # [place] # 1.9 H Baso # Seg Neutrophils % 71.8 H Seg Neuts % (Manual) Lymphocytes % (Manual) Monocytes % (Manual) Eosinophils % (Manual) Basophils % (Manual) Nucleated RBC % Seg Neutrophils # 13.5 H Seg Neutrophils # Man Lymphocytes # (Manual) Monocytes # (Manual) Eosinophils # (Manual) PT INR Fibrinogen dRVVT Confirm Interp Factor V Activity POC ABG pH POC ABG pCO2 POC ABG pO2 ABG pO2 ABG HCO3 ABG Base Excess ABG Hemoglobin Oxyhemoglobin Sodium Potassium Chloride Carbon Dioxide BUN Creatinine Glucose POC Glucose Lactic Acid Calcium Phosphorus Magnesium Direct Bilirubin AST ALT Alkaline Phosphatase Lactate Dehydrogenase Troponin T C-Reactive Protein Total Protein Albumin Prealbumin Triglycerides Cholesterol LDL Cholesterol Direct HDL Cholesterol Urine pH Urine WBC (Auto) Urine Creatinine Urine Total Protein Fluid Total Protein Vancomycin Trough Rheumatoid Factor Complement C4 Miscellaneous Test Crossmatch See Detail 12/07/16 12/07/16 12/07/16 11:44 18:19 23:59 WBC RBC Hgb Hct MCV MCH MCHC RDW Plt Count Lymph % (Auto) [place] % (Auto) Lymph # [place] # Baso # Seg Neutrophils % Seg Neuts % (Manual) Lymphocytes % (Manual) Monocytes % (Manual) Eosinophils % (Manual) Basophils % (Manual) Nucleated RBC % Seg Neutrophils # Seg Neutrophils # Man Lymphocytes # (Manual) Monocytes # (Manual) Eosinophils # (Manual) PT INR Fibrinogen dRVVT Confirm Interp Factor V Activity POC ABG pH POC ABG pCO2 POC ABG pO2 ABG pO2 ABG HCO3 ABG Base Excess ABG Hemoglobin Oxyhemoglobin Sodium Potassium Chloride Carbon Dioxide BUN Creatinine Glucose POC Glucose 137 H 138 H 133 H Lactic Acid Calcium Phosphorus Magnesium Direct Bilirubin AST ALT Alkaline Phosphatase Lactate Dehydrogenase Troponin T C-Reactive Protein Total Protein Albumin Prealbumin Triglycerides Cholesterol LDL Cholesterol Direct HDL Cholesterol Urine pH Urine WBC (Auto) Urine Creatinine Urine Total Protein Fluid Total Protein Vancomycin Trough Rheumatoid Factor Complement C4 Miscellaneous Test Crossmatch 12/08/16 12/08/16 12/08/16 05:25 05:30 05:30 WBC 23.8 H RBC 2.88 L Hgb 8.1 L Hct 24.3 L MCV MCH MCHC RDW 16.7 H Plt Count Lymph % (Auto) [place] % (Auto) Lymph # [place] # Baso # Seg Neutrophils % Seg Neuts % (Manual) 76.0 H Lymphocytes % (Manual) 9.0 L Monocytes % (Manual) 9.0 H Eosinophils % (Manual) Basophils % (Manual) Nucleated RBC % Seg Neutrophils # Seg Neutrophils # Man 18.1 H Lymphocytes # (Manual) Monocytes # (Manual) 2.1 H Eosinophils # (Manual) PT INR Fibrinogen dRVVT Confirm Interp Factor V Activity POC ABG pH POC ABG pCO2 POC ABG pO2 ABG pO2 ABG HCO3 ABG Base Excess ABG Hemoglobin Oxyhemoglobin Sodium Potassium Chloride Carbon Dioxide 21 L BUN 76 H Creatinine 1.6 H Glucose 133 H POC Glucose 177 H Lactic Acid Calcium Phosphorus Magnesium Direct Bilirubin AST ALT Alkaline Phosphatase Lactate Dehydrogenase Troponin T C-Reactive Protein Total Protein Albumin Prealbumin Triglycerides Cholesterol LDL Cholesterol Direct HDL Cholesterol Urine pH Urine WBC (Auto) Urine Creatinine Urine Total Protein Fluid Total Protein Vancomycin Trough Rheumatoid Factor Complement C4 Miscellaneous Test Crossmatch 12/08/16 12/08/16 12/09/16 11:45 18:00 00:00 WBC RBC Hgb Hct MCV MCH MCHC RDW Plt Count Lymph % (Auto) [place] % (Auto) Lymph # [place] # Baso # Seg Neutrophils % Seg Neuts % (Manual) Lymphocytes % (Manual) Monocytes % (Manual) Eosinophils % (Manual) Basophils % (Manual) Nucleated RBC % Seg Neutrophils # Seg Neutrophils # Man Lymphocytes # (Manual) Monocytes # (Manual) Eosinophils # (Manual) PT INR Fibrinogen dRVVT Confirm Interp Factor V Activity POC ABG pH POC ABG pCO2 POC ABG pO2 ABG pO2 ABG HCO3 ABG Base Excess ABG Hemoglobin Oxyhemoglobin Sodium Potassium Chloride Carbon Dioxide BUN Creatinine Glucose POC Glucose 163 H 123 H 137 H Lactic Acid Calcium Phosphorus Magnesium Direct Bilirubin AST ALT Alkaline Phosphatase Lactate Dehydrogenase Troponin T C-Reactive Protein Total Protein Albumin Prealbumin Triglycerides Cholesterol LDL Cholesterol Direct HDL Cholesterol Urine pH Urine WBC (Auto) Urine Creatinine Urine Total Protein Fluid Total Protein Vancomycin Trough Rheumatoid Factor Complement C4 Miscellaneous Test Crossmatch 12/09/16 12/09/16 12/09/16 05:34 06:00 06:00 WBC 15.5 H RBC 2.87 L Hgb 8.0 L Hct 24.2 L MCV MCH MCHC RDW 17.2 H Plt Count Lymph % (Auto) [place] % (Auto) 11.6 H Lymph # [place] # 1.8 H Baso # Seg Neutrophils % 70.8 H Seg Neuts % (Manual) Lymphocytes % (Manual) Monocytes % (Manual) Eosinophils % (Manual) Basophils % (Manual) Nucleated RBC % Seg Neutrophils # 11.0 H Seg Neutrophils # Man Lymphocytes # (Manual) Monocytes # (Manual) Eosinophils # (Manual) PT INR Fibrinogen dRVVT Confirm Interp Factor V Activity POC ABG pH POC ABG pCO2 POC ABG pO2 ABG pO2 ABG HCO3 ABG Base Excess ABG Hemoglobin Oxyhemoglobin Sodium Potassium Chloride Carbon Dioxide BUN 51 H Creatinine Glucose 117 H POC Glucose 136 H Lactic Acid Calcium Phosphorus Magnesium Direct Bilirubin AST ALT Alkaline Phosphatase Lactate Dehydrogenase Troponin T C-Reactive Protein Total Protein Albumin Prealbumin Triglycerides Cholesterol LDL Cholesterol Direct HDL Cholesterol Urine pH Urine WBC (Auto) Urine Creatinine Urine Total Protein Fluid Total Protein Vancomycin Trough Rheumatoid Factor Complement C4 Miscellaneous Test Crossmatch 12/09/16 12/09/16 12/09/16 12:29 17:52 23:10 WBC RBC Hgb Hct MCV MCH MCHC RDW Plt Count Lymph % (Auto) [place] % (Auto) Lymph # [place] # Baso # Seg Neutrophils % Seg Neuts % (Manual) Lymphocytes % (Manual) Monocytes % (Manual) Eosinophils % (Manual) Basophils % (Manual) Nucleated RBC % Seg Neutrophils # Seg Neutrophils # Man Lymphocytes # (Manual) Monocytes # (Manual) Eosinophils # (Manual) PT INR Fibrinogen dRVVT Confirm Interp Factor V Activity POC ABG pH POC ABG pCO2 POC ABG pO2 ABG pO2 ABG HCO3 ABG Base Excess ABG Hemoglobin Oxyhemoglobin Sodium Potassium Chloride Carbon Dioxide BUN Creatinine Glucose POC Glucose 139 H 140 H 129 H Lactic Acid Calcium Phosphorus Magnesium Direct Bilirubin AST ALT Alkaline Phosphatase Lactate Dehydrogenase Troponin T C-Reactive Protein Total Protein Albumin Prealbumin Triglycerides Cholesterol LDL Cholesterol Direct HDL Cholesterol Urine pH Urine WBC (Auto) Urine Creatinine Urine Total Protein Fluid Total Protein Vancomycin Trough Rheumatoid Factor Complement C4 Miscellaneous Test Crossmatch 12/10/16 12/10/16 12/10/16 05:00 05:00 06:54 WBC 15.7 H RBC 2.87 L Hgb 8.2 L Hct 24.4 L MCV MCH MCHC RDW 17.2 H Plt Count Lymph % (Auto) [place] % (Auto) 8.3 H Lymph # [place] # 1.3 H Baso # Seg Neutrophils % 72.8 H Seg Neuts % (Manual) Lymphocytes % (Manual) Monocytes % (Manual) Eosinophils % (Manual) Basophils % (Manual) Nucleated RBC % Seg Neutrophils # 11.4 H Seg Neutrophils # Man Lymphocytes # (Manual) Monocytes # (Manual) Eosinophils # (Manual) PT INR Fibrinogen dRVVT Confirm Interp Factor V Activity POC ABG pH POC ABG pCO2 POC ABG pO2 ABG pO2 ABG HCO3 ABG Base Excess ABG Hemoglobin Oxyhemoglobin Sodium Potassium Chloride Carbon Dioxide BUN 64 H Creatinine 1.4 H Glucose 134 H POC Glucose 154 H Lactic Acid Calcium Phosphorus Magnesium Direct Bilirubin AST ALT Alkaline Phosphatase Lactate Dehydrogenase Troponin T C-Reactive Protein Total Protein Albumin Prealbumin Triglycerides Cholesterol LDL Cholesterol Direct HDL Cholesterol Urine pH Urine WBC (Auto) Urine Creatinine Urine Total Protein Fluid Total Protein Vancomycin Trough Rheumatoid Factor Complement C4 Miscellaneous Test Crossmatch 12/10/16 12/10/16 12/10/16 11:58 17:29 23:52 WBC RBC Hgb Hct MCV MCH MCHC RDW Plt Count Lymph % (Auto) [place] % (Auto) Lymph # [place] # Baso # Seg Neutrophils % Seg Neuts % (Manual) Lymphocytes % (Manual) Monocytes % (Manual) Eosinophils % (Manual) Basophils % (Manual) Nucleated RBC % Seg Neutrophils # Seg Neutrophils # Man Lymphocytes # (Manual) Monocytes # (Manual) Eosinophils # (Manual) PT INR Fibrinogen dRVVT Confirm Interp Factor V Activity POC ABG pH POC ABG pCO2 POC ABG pO2 ABG pO2 ABG HCO3 ABG Base Excess ABG Hemoglobin Oxyhemoglobin Sodium Potassium Chloride Carbon Dioxide BUN Creatinine Glucose POC Glucose 144 H 163 H 125 H Lactic Acid Calcium Phosphorus Magnesium Direct Bilirubin AST ALT Alkaline Phosphatase Lactate Dehydrogenase Troponin T C-Reactive Protein Total Protein Albumin Prealbumin Triglycerides Cholesterol LDL Cholesterol Direct HDL Cholesterol Urine pH Urine WBC (Auto) Urine Creatinine Urine Total Protein Fluid Total Protein Vancomycin Trough Rheumatoid Factor Complement C4 Miscellaneous Test Crossmatch 12/11/16 12/11/16 12/11/16 05:38 06:30 06:30 WBC 14.4 H RBC 2.76 L Hgb 7.7 L Hct 23.4 L MCV MCH MCHC RDW 17.2 H Plt Count Lymph % (Auto) [place] % (Auto) 8.8 H Lymph # [place] # 1.3 H Baso # Seg Neutrophils % 72.5 H Seg Neuts % (Manual) Lymphocytes % (Manual) Monocytes % (Manual) Eosinophils % (Manual) Basophils % (Manual) Nucleated RBC % Seg Neutrophils # 10.5 H Seg Neutrophils # Man Lymphocytes # (Manual) Monocytes # (Manual) Eosinophils # (Manual) PT INR Fibrinogen dRVVT Confirm Interp Factor V Activity POC ABG pH POC ABG pCO2 POC ABG pO2 ABG pO2 ABG HCO3 ABG Base Excess ABG Hemoglobin Oxyhemoglobin Sodium Potassium Chloride Carbon Dioxide BUN 43 H Creatinine Glucose 124 H POC Glucose 141 H Lactic Acid Calcium 8.3 L Phosphorus Magnesium 1.60 L Direct Bilirubin AST ALT Alkaline Phosphatase Lactate Dehydrogenase Troponin T C-Reactive Protein Total Protein Albumin Prealbumin Triglycerides Cholesterol LDL Cholesterol Direct HDL Cholesterol Urine pH Urine WBC (Auto) Urine Creatinine Urine Total Protein Fluid Total Protein Vancomycin Trough Rheumatoid Factor Complement C4 Miscellaneous Test Crossmatch 12/11/16 12/11/16 12/11/16 11:15 17:59 23:48 WBC RBC Hgb Hct MCV MCH MCHC RDW Plt Count Lymph % (Auto) [place] % (Auto) Lymph # [place] # Baso # Seg Neutrophils % Seg Neuts % (Manual) Lymphocytes % (Manual) Monocytes % (Manual) Eosinophils % (Manual) Basophils % (Manual) Nucleated RBC % Seg Neutrophils # Seg Neutrophils # Man Lymphocytes # (Manual) Monocytes # (Manual) Eosinophils # (Manual) PT INR Fibrinogen dRVVT Confirm Interp Factor V Activity POC ABG pH POC ABG pCO2 POC ABG pO2 ABG pO2 ABG HCO3 ABG Base Excess ABG Hemoglobin Oxyhemoglobin Sodium Potassium Chloride Carbon Dioxide BUN Creatinine Glucose POC Glucose 188 H 106 H 119 H Lactic Acid Calcium Phosphorus Magnesium Direct Bilirubin AST ALT Alkaline Phosphatase Lactate Dehydrogenase Troponin T C-Reactive Protein Total Protein Albumin Prealbumin Triglycerides Cholesterol LDL Cholesterol Direct HDL Cholesterol Urine pH Urine WBC (Auto) Urine Creatinine Urine Total Protein Fluid Total Protein Vancomycin Trough Rheumatoid Factor Complement C4 Miscellaneous Test Crossmatch 12/12/16 12/12/16 12/12/16 05:00 06:01 12:20 WBC 16.7 H RBC 2.87 L Hgb 8.0 L Hct 24.2 L MCV MCH MCHC RDW 17.6 H Plt Count Lymph % (Auto) [place] % (Auto) Lymph # [place] # 1.2 H Baso # Seg Neutrophils % 75.3 H Seg Neuts % (Manual) Lymphocytes % (Manual) Monocytes % (Manual) Eosinophils % (Manual) Basophils % (Manual) Nucleated RBC % Seg Neutrophils # 12.6 H Seg Neutrophils # Man Lymphocytes # (Manual) Monocytes # (Manual) Eosinophils # (Manual) PT INR Fibrinogen dRVVT Confirm Interp Factor V Activity POC ABG pH POC ABG pCO2 POC ABG pO2 ABG pO2 ABG HCO3 ABG Base Excess ABG Hemoglobin Oxyhemoglobin Sodium Potassium Chloride Carbon Dioxide BUN Creatinine Glucose POC Glucose 134 H 149 H Lactic Acid Calcium Phosphorus Magnesium Direct Bilirubin AST ALT Alkaline Phosphatase Lactate Dehydrogenase Troponin T C-Reactive Protein Total Protein Albumin Prealbumin Triglycerides Cholesterol LDL Cholesterol Direct HDL Cholesterol Urine pH Urine WBC (Auto) Urine Creatinine Urine Total Protein Fluid Total Protein Vancomycin Trough Rheumatoid Factor Complement C4 Miscellaneous Test Crossmatch 12/12/16 12/12/16 12/12/16 17:38 23:01 Unknown WBC RBC Hgb Hct MCV MCH MCHC RDW Plt Count Lymph % (Auto) [place] % (Auto) Lymph # [place] # Baso # Seg Neutrophils % Seg Neuts % (Manual) Lymphocytes % (Manual) Monocytes % (Manual) Eosinophils % (Manual) Basophils % (Manual) Nucleated RBC % Seg Neutrophils # Seg Neutrophils # Man Lymphocytes # (Manual) Monocytes # (Manual) Eosinophils # (Manual) PT INR Fibrinogen dRVVT Confirm Interp Factor V Activity POC ABG pH POC ABG pCO2 POC ABG pO2 ABG pO2 ABG HCO3 ABG Base Excess ABG Hemoglobin Oxyhemoglobin Sodium Potassium Chloride Carbon Dioxide BUN 60 H Creatinine 1.3 H Glucose 126 H POC Glucose 127 H 144 H Lactic Acid Calcium Phosphorus Magnesium Direct Bilirubin AST ALT Alkaline Phosphatase Lactate Dehydrogenase Troponin T C-Reactive Protein Total Protein Albumin Prealbumin Triglycerides Cholesterol LDL Cholesterol Direct HDL Cholesterol Urine pH Urine WBC (Auto) Urine Creatinine Urine Total Protein Fluid Total Protein Vancomycin Trough Rheumatoid Factor Complement C4 Miscellaneous Test Crossmatch 12/13/16 12/13/16 12/13/16 04:00 04:00 05:19 WBC 18.7 H RBC 2.89 L Hgb 8.3 L Hct 24.6 L MCV MCH MCHC RDW 17.5 H Plt Count Lymph % (Auto) [place] % (Auto) Lymph # [place] # 1.3 H Baso # Seg Neutrophils % 71.5 H Seg Neuts % (Manual) Lymphocytes % (Manual) Monocytes % (Manual) Eosinophils % (Manual) Basophils % (Manual) Nucleated RBC % Seg Neutrophils # 13.4 H Seg Neutrophils # Man Lymphocytes # (Manual) Monocytes # (Manual) Eosinophils # (Manual) PT INR Fibrinogen dRVVT Confirm Interp Factor V Activity POC ABG pH POC ABG pCO2 POC ABG pO2 ABG pO2 ABG HCO3 ABG Base Excess ABG Hemoglobin Oxyhemoglobin Sodium Potassium Chloride Carbon Dioxide BUN 73 H Creatinine 1.5 H Glucose 141 H POC Glucose 171 H Lactic Acid Calcium Phosphorus Magnesium Direct Bilirubin AST ALT Alkaline Phosphatase Lactate Dehydrogenase Troponin T C-Reactive Protein Total Protein Albumin Prealbumin Triglycerides Cholesterol LDL Cholesterol Direct HDL Cholesterol Urine pH Urine WBC (Auto) Urine Creatinine Urine Total Protein Fluid Total Protein Vancomycin Trough Rheumatoid Factor Complement C4 Miscellaneous Test Crossmatch 12/13/16 12/13/16 12/14/16 12:28 16:48 00:01 WBC RBC Hgb Hct MCV MCH MCHC RDW Plt Count Lymph % (Auto) [place] % (Auto) Lymph # [place] # Baso # Seg Neutrophils % Seg Neuts % (Manual) Lymphocytes % (Manual) Monocytes % (Manual) Eosinophils % (Manual) Basophils % (Manual) Nucleated RBC % Seg Neutrophils # Seg Neutrophils # Man Lymphocytes # (Manual) Monocytes # (Manual) Eosinophils # (Manual) PT INR Fibrinogen dRVVT Confirm Interp Factor V Activity POC ABG pH POC ABG pCO2 POC ABG pO2 ABG pO2 ABG HCO3 ABG Base Excess ABG Hemoglobin Oxyhemoglobin Sodium Potassium Chloride Carbon Dioxide BUN Creatinine Glucose POC Glucose 206 H 173 H 139 H Lactic Acid Calcium Phosphorus Magnesium Direct Bilirubin AST ALT Alkaline Phosphatase Lactate Dehydrogenase Troponin T C-Reactive Protein Total Protein Albumin Prealbumin Triglycerides Cholesterol LDL Cholesterol Direct HDL Cholesterol Urine pH Urine WBC (Auto) Urine Creatinine Urine Total Protein Fluid Total Protein Vancomycin Trough Rheumatoid Factor Complement C4 Miscellaneous Test Crossmatch 12/14/16 12/14/16 12/14/16 05:16 06:10 11:17 WBC RBC Hgb Hct MCV MCH MCHC RDW Plt Count Lymph % (Auto) [place] % (Auto) Lymph # [place] # Baso # Seg Neutrophils % Seg Neuts % (Manual) Lymphocytes % (Manual) Monocytes % (Manual) Eosinophils % (Manual) Basophils % (Manual) Nucleated RBC % Seg Neutrophils # Seg Neutrophils # Man Lymphocytes # (Manual) Monocytes # (Manual) Eosinophils # (Manual) PT INR Fibrinogen dRVVT Confirm Interp Factor V Activity POC ABG pH POC ABG pCO2 POC ABG pO2 ABG pO2 ABG HCO3 ABG Base Excess ABG Hemoglobin Oxyhemoglobin Sodium Potassium Chloride Carbon Dioxide BUN 57 H Creatinine 1.4 H Glucose 135 H POC Glucose 158 H 137 H Lactic Acid Calcium Phosphorus Magnesium Direct Bilirubin AST ALT Alkaline Phosphatase Lactate Dehydrogenase Troponin T C-Reactive Protein Total Protein Albumin Prealbumin Triglycerides Cholesterol LDL Cholesterol Direct HDL Cholesterol Urine pH Urine WBC (Auto) Urine Creatinine Urine Total Protein Fluid Total Protein Vancomycin Trough Rheumatoid Factor Complement C4 Miscellaneous Test Crossmatch 12/14/16 12/14/16 12/15/16 17:52 23:27 04:00 WBC RBC Hgb Hct MCV MCH MCHC RDW Plt Count Lymph % (Auto) [place] % (Auto) Lymph # [place] # Baso # Seg Neutrophils % Seg Neuts % (Manual) Lymphocytes % (Manual) Monocytes % (Manual) Eosinophils % (Manual) Basophils % (Manual) Nucleated RBC % Seg Neutrophils # Seg Neutrophils # Man Lymphocytes # (Manual) Monocytes # (Manual) Eosinophils # (Manual) PT INR Fibrinogen dRVVT Confirm Interp Factor V Activity POC ABG pH POC ABG pCO2 POC ABG pO2 ABG pO2 ABG HCO3 ABG Base Excess ABG Hemoglobin Oxyhemoglobin Sodium Potassium Chloride 97.9 L Carbon Dioxide BUN 75 H Creatinine 1.6 H Glucose 122 H POC Glucose 149 H 163 H Lactic Acid Calcium Phosphorus 5.20 H Magnesium Direct Bilirubin AST ALT Alkaline Phosphatase Lactate Dehydrogenase Troponin T C-Reactive Protein Total Protein Albumin Prealbumin Triglycerides Cholesterol LDL Cholesterol Direct HDL Cholesterol Urine pH Urine WBC (Auto) Urine Creatinine Urine Total Protein Fluid Total Protein Vancomycin Trough Rheumatoid Factor Complement C4 Miscellaneous Test Crossmatch 12/15/16 12/15/16 12/15/16 05:50 11:24 17:01 WBC RBC Hgb Hct MCV MCH MCHC RDW Plt Count Lymph % (Auto) [place] % (Auto) Lymph # [place] # Baso # Seg Neutrophils % Seg Neuts % (Manual) Lymphocytes % (Manual) Monocytes % (Manual) Eosinophils % (Manual) Basophils % (Manual) Nucleated RBC % Seg Neutrophils # Seg Neutrophils # Man Lymphocytes # (Manual) Monocytes # (Manual) Eosinophils # (Manual) PT INR Fibrinogen dRVVT Confirm Interp Factor V Activity POC ABG pH POC ABG pCO2 POC ABG pO2 ABG pO2 ABG HCO3 ABG Base Excess ABG Hemoglobin Oxyhemoglobin Sodium Potassium Chloride Carbon Dioxide BUN Creatinine Glucose POC Glucose 150 H 146 H 167 H Lactic Acid Calcium Phosphorus Magnesium Direct Bilirubin AST ALT Alkaline Phosphatase Lactate Dehydrogenase Troponin T C-Reactive Protein Total Protein Albumin Prealbumin Triglycerides Cholesterol LDL Cholesterol Direct HDL Cholesterol Urine pH Urine WBC (Auto) Urine Creatinine Urine Total Protein Fluid Total Protein Vancomycin Trough Rheumatoid Factor Complement C4 Miscellaneous Test Crossmatch 12/15/16 12/16/16 12/16/16 23:34 05:25 11:24 WBC RBC Hgb Hct MCV MCH MCHC RDW Plt Count Lymph % (Auto) [place] % (Auto) Lymph # [place] # Baso # Seg Neutrophils % Seg Neuts % (Manual) Lymphocytes % (Manual) Monocytes % (Manual) Eosinophils % (Manual) Basophils % (Manual) Nucleated RBC % Seg Neutrophils # Seg Neutrophils # Man Lymphocytes # (Manual) Monocytes # (Manual) Eosinophils # (Manual) PT INR Fibrinogen dRVVT Confirm Interp Factor V Activity POC ABG pH POC ABG pCO2 POC ABG pO2 ABG pO2 ABG HCO3 ABG Base Excess ABG Hemoglobin Oxyhemoglobin Sodium Potassium Chloride Carbon Dioxide BUN Creatinine Glucose POC Glucose 127 H 139 H 165 H Lactic Acid Calcium Phosphorus Magnesium Direct Bilirubin AST ALT Alkaline Phosphatase Lactate Dehydrogenase Troponin T C-Reactive Protein Total Protein Albumin Prealbumin Triglycerides Cholesterol LDL Cholesterol Direct HDL Cholesterol Urine pH Urine WBC (Auto) Urine Creatinine Urine Total Protein Fluid Total Protein Vancomycin Trough Rheumatoid Factor Complement C4 Miscellaneous Test Crossmatch 12/16/16 12/16/16 12/16/16 15:30 16:25 17:31 WBC 17.8 H RBC 2.38 L Hgb 6.4 L Hct 20.3 L MCV MCH 27 L MCHC RDW 17.4 H Plt Count Lymph % (Auto) [place] % (Auto) Lymph # [place] # Baso # Seg Neutrophils % Seg Neuts % (Manual) Lymphocytes % (Manual) Monocytes % (Manual) 10.0 H Eosinophils % (Manual) Basophils % (Manual) Nucleated RBC % Seg Neutrophils # Seg Neutrophils # Man 8.5 H Lymphocytes # (Manual) Monocytes # (Manual) 1.8 H Eosinophils # (Manual) PT INR Fibrinogen dRVVT Confirm Interp Factor V Activity POC ABG pH POC ABG pCO2 POC ABG pO2 ABG pO2 ABG HCO3 ABG Base Excess ABG Hemoglobin Oxyhemoglobin Sodium Potassium Chloride Carbon Dioxide BUN Creatinine Glucose POC Glucose 176 H Lactic Acid Calcium Phosphorus Magnesium Direct Bilirubin AST ALT Alkaline Phosphatase Lactate Dehydrogenase Troponin T C-Reactive Protein Total Protein Albumin Prealbumin Triglycerides Cholesterol LDL Cholesterol Direct HDL Cholesterol Urine pH Urine WBC (Auto) Urine Creatinine Urine Total Protein Fluid Total Protein Vancomycin Trough Rheumatoid Factor Complement C4 Miscellaneous Test Crossmatch See Detail 12/17/16 12/17/16 12/17/16 00:14 04:00 05:00 WBC 20.0 H RBC 2.99 L Hgb 8.5 L Hct 25.7 L MCV MCH MCHC RDW 17.2 H Plt Count Lymph % (Auto) [place] % (Auto) Lymph # [place] # Baso # Seg Neutrophils % Seg Neuts % (Manual) Lymphocytes % (Manual) Monocytes % (Manual) Eosinophils % (Manual) Basophils % (Manual) Nucleated RBC % Seg Neutrophils # Seg Neutrophils # Man Lymphocytes # (Manual) Monocytes # (Manual) Eosinophils # (Manual) PT INR Fibrinogen dRVVT Confirm Interp Factor V Activity POC ABG pH POC ABG pCO2 POC ABG pO2 ABG pO2 ABG HCO3 ABG Base Excess ABG Hemoglobin Oxyhemoglobin Sodium Potassium Chloride 97.7 L Carbon Dioxide BUN 73 H Creatinine 1.7 H Glucose 136 H POC Glucose 148 H Lactic Acid Calcium Phosphorus 2.20 L Magnesium 2.70 H Direct Bilirubin AST ALT Alkaline Phosphatase Lactate Dehydrogenase Troponin T C-Reactive Protein Total Protein Albumin Prealbumin Triglycerides Cholesterol LDL Cholesterol Direct HDL Cholesterol Urine pH Urine WBC (Auto) Urine Creatinine Urine Total Protein Fluid Total Protein Vancomycin Trough Rheumatoid Factor Complement C4 Miscellaneous Test Crossmatch 12/17/16 12/17/16 12/17/16 05:39 12:50 16:32 WBC RBC Hgb Hct MCV MCH MCHC RDW Plt Count Lymph % (Auto) [place] % (Auto) Lymph # [place] # Baso # Seg Neutrophils % Seg Neuts % (Manual) Lymphocytes % (Manual) Monocytes % (Manual) Eosinophils % (Manual) Basophils % (Manual) Nucleated RBC % Seg Neutrophils # Seg Neutrophils # Man Lymphocytes # (Manual) Monocytes # (Manual) Eosinophils # (Manual) PT INR Fibrinogen dRVVT Confirm Interp Factor V Activity POC ABG pH POC ABG pCO2 POC ABG pO2 ABG pO2 ABG HCO3 ABG Base Excess ABG Hemoglobin Oxyhemoglobin Sodium Potassium Chloride Carbon Dioxide BUN Creatinine Glucose POC Glucose 162 H 146 H 169 H Lactic Acid Calcium Phosphorus Magnesium Direct Bilirubin AST ALT Alkaline Phosphatase Lactate Dehydrogenase Troponin T C-Reactive Protein Total Protein Albumin Prealbumin Triglycerides Cholesterol LDL Cholesterol Direct HDL Cholesterol Urine pH Urine WBC (Auto) Urine Creatinine Urine Total Protein Fluid Total Protein Vancomycin Trough Rheumatoid Factor Complement C4 Miscellaneous Test Crossmatch 12/17/16 12/18/16 12/18/16 23:57 05:00 05:32 WBC RBC Hgb Hct MCV MCH MCHC RDW Plt Count Lymph % (Auto) [place] % (Auto) Lymph # [place] # Baso # Seg Neutrophils % Seg Neuts % (Manual) Lymphocytes % (Manual) Monocytes % (Manual) Eosinophils % (Manual) Basophils % (Manual) Nucleated RBC % Seg Neutrophils # Seg Neutrophils # Man Lymphocytes # (Manual) Monocytes # (Manual) Eosinophils # (Manual) PT INR Fibrinogen dRVVT Confirm Interp Factor V Activity POC ABG pH POC ABG pCO2 POC ABG pO2 ABG pO2 ABG HCO3 ABG Base Excess ABG Hemoglobin Oxyhemoglobin Sodium Potassium Chloride 97.0 L Carbon Dioxide BUN 63 H Creatinine 1.4 H Glucose 174 H POC Glucose 145 H 201 H Lactic Acid Calcium Phosphorus 1.70 L D Magnesium Direct Bilirubin AST ALT Alkaline Phosphatase 257 H Lactate Dehydrogenase Troponin T C-Reactive Protein Total Protein 5.9 L Albumin 1.8 L Prealbumin Triglycerides Cholesterol LDL Cholesterol Direct HDL Cholesterol Urine pH Urine WBC (Auto) Urine Creatinine Urine Total Protein Fluid Total Protein Vancomycin Trough Rheumatoid Factor Complement C4 Miscellaneous Test Crossmatch Allied health notes reviewed: RT
[2016-12-18] MEDS ORDERED: TPN ADULT IV SCH (20:00)
[2016-12-19] MEDS: LOPRESSOR PO SCH ×3 (00:08→12:17)
[2016-12-19] MEDS: REGLAN IV SCH ×4 (00:09→18:12)
[2016-12-19] MEDS: HumuLIN R SUB-Q SCH ×3 (00:18→14:26)
[2016-12-19] MEDS: APRESOLINE PO SCH ×2 (01:14→06:48)
[2016-12-19] MEDS: DUONEB *Not for PRN Use IH SCH ×4 (02:43→19:08)
[2016-12-19 05:14] LABS: Hematocrit 23.6 % (30.3-42.9); Hemoglobin 7.6 gm/dl (10.1-14.3); Mean Corpuscular HGB Conc 32 % (30-34); Mean Corpuscular Hemoglobin 28 pg (28-32); Mean Corpuscular Volume 86 fl (79-97); Platelet Count 354 K/mm3 (140-440); Red Blood Count 2.73 M/mm3 (3.65-5.03); Red Cell Distribution Width 17.6 % (13.2-15.2)
[2016-12-19 06:04] LABS: Total Cells Counted 100
[2016-12-19 06:05] LABS: Eosinophils % (Manual) 0 % (0.0-4.3); Platelet Estimate Consistent w Auto; Target Cells Few
--- NOTE | 2016-12-19 08:59 | Progress Note ---
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 * Her tachycardia seems to have resolved. Heart rate is in the 80s today * Tolerating TPN well at this time. Shall monitor her electrolytes * monitor for renal recovery * Rate control per cardiology * Dose medications for renal function * Avoid potential nephrotoxins Subjective Date of service: 12/19/16 Principal diagnosis: Acute resp failure on MVS; S/P Acute CVA; Acute Encephalopathy; JUANITA Interval history: Mrs. العراقي remains in the ICU. Currently on 28% FiO2. Unresponsive Objective - Vital Signs Vital signs: Vital Signs - 12hr 12/18/16 12/18/16 12/18/16 21:00 21:15 21:30 Temperature Pulse Rate 99 H 101 H 102 H Respiratory 26 H 26 H 26 H Rate Blood Pressure 122/74 123/78 129/73 O2 Sat by Pulse 97 97 98 Oximetry O2 Sat by Pulse Oximetry [ Assessment] 12/18/16 12/18/16 12/18/16 21:45 22:00 22:15 Temperature Pulse Rate 102 H 103 H 102 H Respiratory 26 H 28 H 25 H Rate Blood Pressure 123/73 133/80 115/74 O2 Sat by Pulse 96 97 97 Oximetry O2 Sat by Pulse Oximetry [ Assessment] 12/18/16 12/18/16 12/18/16 22:30 22:45 23:00 Temperature Pulse Rate 103 H 102 H 102 H Respiratory 26 H 23 24 Rate Blood Pressure 129/79 119/75 121/79 O2 Sat by Pulse 98 97 97 Oximetry O2 Sat by Pulse Oximetry [ Assessment] 12/18/16 12/18/16 12/18/16 23:15 23:30 23:33 Temperature 97.5 F L Pulse Rate 103 H 107 H Respiratory 21 16 Rate Blood Pressure 126/79 122/77 O2 Sat by Pulse 97 97 Oximetry O2 Sat by Pulse Oximetry [ Assessment] 12/18/16 12/18/16 12/19/16 23:40 23:45 00:00 Temperature Pulse Rate 104 H 105 H Respiratory 25 H 27 H Rate Blood Pressure 122/69 128/75 O2 Sat by Pulse 97 97 Oximetry O2 Sat by Pulse 97 Oximetry [ Assessment] 12/19/16 12/19/16 12/19/16 00:08 00:15 00:30 Temperature Pulse Rate 104 H 102 H 101 H Respiratory 16 19 Rate Blood Pressure 128/75 116/74 118/75 O2 Sat by Pulse 97 98 Oximetry O2 Sat by Pulse Oximetry [ Assessment] 12/19/16 12/19/16 12/19/16 00:45 01:00 01:14 Temperature Pulse Rate 103 H 104 H 101 H Respiratory 11 L 14 Rate Blood Pressure 134/85 130/80 118/76 O2 Sat by Pulse 98 98 Oximetry O2 Sat by Pulse Oximetry [ Assessment] 12/19/16 12/19/16 12/19/16 01:15 01:30 01:45 Temperature Pulse Rate 99 H 93 H 93 H Respiratory 19 17 12 Rate Blood Pressure 128/85 129/80 126/82 O2 Sat by Pulse 98 98 98 Oximetry O2 Sat by Pulse Oximetry [ Assessment] 12/19/16 12/19/16 12/19/16 02:00 02:15 02:30 Temperature Pulse Rate 93 H 94 H 93 H Respiratory 19 24 13 Rate Blood Pressure 133/83 129/86 125/76 O2 Sat by Pulse 98 98 98 Oximetry O2 Sat by Pulse Oximetry [ Assessment] 12/19/16 12/19/16 12/19/16 02:45 03:00 03:15 Temperature Pulse Rate 95 H 94 H 96 H Respiratory 8 L 14 13 Rate Blood Pressure 133/87 125/83 133/84 O2 Sat by Pulse 98 98 98 Oximetry O2 Sat by Pulse Oximetry [ Assessment] 12/19/16 12/19/16 12/19/16 03:30 03:45 03:51 Temperature 98 F Pulse Rate 97 H 96 H Respiratory 13 23 Rate Blood Pressure 137/86 129/84 O2 Sat by Pulse 98 98 Oximetry O2 Sat by Pulse Oximetry [ Assessment] 12/19/16 12/19/16 12/19/16 04:00 04:15 04:30 Temperature Pulse Rate 99 H 99 H 96 H Respiratory 21 21 16 Rate Blood Pressure 139/88 143/86 129/86 O2 Sat by Pulse 98 98 99 Oximetry O2 Sat by Pulse Oximetry [ Assessment] 12/19/16 12/19/16 12/19/16 04:45 05:00 05:15 Temperature Pulse Rate 98 H 97 H 103 H Respiratory 11 L 15 20 Rate Blood Pressure 132/90 132/90 151/103 O2 Sat by Pulse 99 99 99 Oximetry O2 Sat by Pulse Oximetry [ Assessment] 12/19/16 12/19/16 12/19/16 05:31 05:45 06:00 Temperature Pulse Rate 104 H 102 H 99 H Respiratory 26 H 25 H Rate Blood Pressure 151/103 126/71 114/67 O2 Sat by Pulse 97 95 97 Oximetry O2 Sat by Pulse Oximetry [ Assessment] 12/19/16 12/19/16 12/19/16 06:15 06:30 06:47 Temperature Pulse Rate 97 H 97 H 94 H Respiratory 23 24 Rate Blood Pressure 118/67 117/72 118/64 O2 Sat by Pulse 98 98 Oximetry O2 Sat by Pulse Oximetry [ Assessment] 12/19/16 12/19/16 06:48 08:00 Temperature 97.4 F L Pulse Rate 94 H Respiratory Rate Blood Pressure 118/64 O2 Sat by Pulse Oximetry O2 Sat by Pulse Oximetry [ Assessment] - General Appearance General appearance: well-developed, well-nourished, appears stated age, intubated EENT: PERRL, mucous membranes moist Neck: no JVD, other (tracheostomy tube in place. Connected to the ventilator.) Respiratory: Present: Ronchi (bilateral scattered rhonchi) Cardiology: regular, normal heart rate Gastrointestinal: normoactive bowel sounds, other (collection bag noted over her previous PEG tube site) Integumentary: other (1+ edema) - Lab 12/19/16 05:02 12/18/16 05:00 Most recent lab results ABG pH 7.450 pH Units (7.350-7.450) 12/05/16 Unknown ABG pCO2 29.6 mm Hg 12/05/16 Unknown ABG pO2 75.2 mm Hg (80.0-90.0) L 12/05/16 Unknown ABG HCO3 20.1 mmol/L (20.0-26.0) 12/05/16 Unknown ABG O2 Saturation 96.8 % (95.0-99.0) 12/05/16 Unknown Calcium 8.8 mg/dL (8.4-10.2) 12/18/16 05:00 Phosphorus 1.70 mg/dL (2.5-4.5) L D 12/18/16 05:00 Magnesium 2.10 mg/dL (1.7-2.3) 12/18/16 05:00 Urine Creatinine 19.7 mg/dL (0.1-20.0) 11/12/16 10:18 Urine Sodium 36 mEq/L 09/16/16 19:19 Urine Total Protein 16 mg/dL (5-11.8) H 09/16/16 19:19
[2016-12-19 10:03] LABS: Calcium 8.8 mg/dL (8.4-10.2)
--- NOTE | 2016-12-19 11:51 | Progress Note ---
Assessment and Plan Acute hypoxic respiratory failure on mechanical ventilation s/p trach and PEG Acute left MCA CVA echocardiogram demonstrates at least moderate LVH but a normal LV systolic function, EF 50-55%. no thrombus visualized on transthoracic echocardiogram. Dislodged PEG tube s/p repair of gastric perforation with wedge gastrectomy Hypertension was hypotensive requiring pressor support Acute on chronic renal failure requiring dialysis Fungemia Diabetes mellitus Anemia requiring transfusion of PRBCs Leukocytosis Paroxysmal Afib s/p failed cardioversion on 09/25 on lopressor for suppression considered not a candidate for anticoagulation due to severe anemia and thrombocytopenia. Conservative cardiac management. Subjective Date of service: 12/19/16 Principal diagnosis: Acute resp failure on MVS; S/P Acute CVA; Acute Encephalopathy; JUANITA Interval history: Cardiology re-called for transient Afib seen on telemetry after dialysis on . Currently stable sinus rhythm on telemetry. Objective Vital Signs Temp Pulse Pulse Pulse Resp Resp BP 12/19/16 11:29 97.3 F L 12/19/16 09:42 87 12 12/19/16 09:35 82 22 12/19/16 09:33 84 103/61 12/19/16 09:00 83 16 87/48 12/19/16 08:45 83 19 85/39 12/19/16 08:30 84 22 91/39 12/19/16 08:15 86 24 91/52 12/19/16 08:00 97.4 F L 86 23 89/46 12/19/16 07:45 86 24 92/46 12/19/16 07:30 87 16 91/47 12/19/16 07:15 85 25 H 94/39 12/19/16 07:00 87 23 100/45 12/19/16 06:48 94 H 118/64 12/19/16 06:47 94 H 118/64 12/19/16 06:45 91 H 21 106/55 12/19/16 06:30 97 H 24 117/72 12/19/16 06:15 97 H 23 118/67 12/19/16 06:00 99 H 25 H 114/67 12/19/16 05:45 102 H 26 H 126/71 12/19/16 05:31 104 H 151/103 12/19/16 05:15 103 H 20 151/103 12/19/16 05:00 97 H 15 132/90 12/19/16 04:45 98 H 11 L 132/90 12/19/16 04:30 96 H 16 129/86 12/19/16 04:15 99 H 21 143/86 12/19/16 04:00 99 H 21 139/88 12/19/16 03:51 98 F 12/19/16 03:45 96 H 23 129/84 12/19/16 03:30 97 H 13 137/86 12/19/16 03:15 96 H 13 133/84 12/19/16 03:00 94 H 14 125/83 12/19/16 02:45 95 H 8 L 133/87 12/19/16 02:30 93 H 13 125/76 12/19/16 02:15 94 H 24 129/86 12/19/16 02:00 93 H 19 133/83 12/19/16 01:45 93 H 12 126/82 12/19/16 01:30 93 H 17 129/80 12/19/16 01:15 99 H 19 128/85 12/19/16 01:14 101 H 118/76 12/19/16 01:00 104 H 14 130/80 12/19/16 00:45 103 H 11 L 134/85 12/19/16 00:30 101 H 19 118/75 12/19/16 00:15 102 H 16 116/74 12/19/16 00:08 104 H 128/75 12/19/16 00:00 105 H 27 H 128/75 12/18/16 23:45 104 H 25 H 122/69 12/18/16 23:40 12/18/16 23:33 97.5 F L 12/18/16 23:30 107 H 16 122/77 12/18/16 23:15 103 H 21 126/79 12/18/16 23:00 102 H 24 121/79 12/18/16 22:45 102 H 23 119/75 12/18/16 22:30 103 H 26 H 129/79 12/18/16 22:15 102 H 25 H 115/74 12/18/16 22:00 103 H 28 H 133/80 12/18/16 21:45 102 H 26 H 123/73 12/18/16 21:30 102 H 26 H 129/73 12/18/16 21:15 101 H 26 H 123/78 12/18/16 21:00 99 H 26 H 122/74 12/18/16 20:45 100 H 23 118/76 12/18/16 20:30 97 H 25 H 126/81 12/18/16 20:15 99 H 9 L 110/77 12/18/16 20:00 98.3 F 99 H 16 121/71 12/18/16 19:45 98 H 26 H 120/71 12/18/16 19:38 96 H 24 12/18/16 19:30 96 H 18 118/67 12/18/16 19:23 94 H 24 12/18/16 19:16 94 H 118/66 12/18/16 19:15 94 H 18 118/66 12/18/16 19:00 95 H 27 H 118/69 12/18/16 18:45 94 H 27 H 108/64 12/18/16 18:30 94 H 27 H 112/68 12/18/16 18:15 98 H 26 H 122/68 12/18/16 18:00 99 H 25 H 128/71 12/18/16 17:45 105 H 25 H 125/74 12/18/16 17:30 110 H 30 H 121/68 12/18/16 17:28 110 H 123/72 12/18/16 17:15 114 H 26 H 123/72 12/18/16 17:00 109 H 26 H 122/80 12/18/16 16:45 104 H 27 H 114/62 12/18/16 16:30 106 H 25 H 105/62 12/18/16 16:15 107 H 106 H 25 H 112/58 12/18/16 16:00 98.2 F 106 H 25 H 111/60 12/18/16 15:53 104 H 24 12/18/16 15:45 101 H 12 133/80 12/18/16 15:38 100 H 101 H 21 110/63 12/18/16 15:30 101 H 25 H 110/63 12/18/16 15:15 100 H 27 H 115/62 12/18/16 15:00 100 H 24 112/59 12/18/16 14:45 101 H 24 112/71 12/18/16 14:30 101 H 20 117/78 12/18/16 14:15 101 H 32 H 116/77 12/18/16 14:00 101 H 22 119/78 12/18/16 13:45 100 H 26 H 113/71 12/18/16 13:30 100 H 24 116/72 12/18/16 13:15 101 H 17 114/72 12/18/16 13:00 101 H 24 123/74 12/18/16 12:45 102 H 19 121/79 12/18/16 12:30 109 H 18 123/76 12/18/16 12:15 105 H 25 H 106/67 12/18/16 12:14 104 H 85/57 12/18/16 12:00 130 H 23 85/57 12/18/16 11:45 134 H 19 84/51 12/18/16 11:44 145 H 84/51 Pulse Ox Pulse Ox 12/19/16 11:29 12/19/16 09:42 12/19/16 09:35 12/19/16 09:33 99 12/19/16 09:00 99 12/19/16 08:45 98 12/19/16 08:30 98 12/19/16 08:15 98 12/19/16 08:00 97 12/19/16 07:45 98 12/19/16 07:30 98 12/19/16 07:15 97 12/19/16 07:00 98 12/19/16 06:48 12/19/16 06:47 12/19/16 06:45 98 12/19/16 06:30 98 12/19/16 06:15 98 12/19/16 06:00 97 12/19/16 05:45 95 12/19/16 05:31 97 12/19/16 05:15 99 12/19/16 05:00 99 12/19/16 04:45 99 12/19/16 04:30 99 12/19/16 04:15 98 12/19/16 04:00 98 12/19/16 03:51 12/19/16 03:45 98 12/19/16 03:30 98 12/19/16 03:15 98 12/19/16 03:00 98 12/19/16 02:45 98 12/19/16 02:30 98 12/19/16 02:15 98 12/19/16 02:00 98 12/19/16 01:45 98 12/19/16 01:30 98 12/19/16 01:15 98 12/19/16 01:14 12/19/16 01:00 98 12/19/16 00:45 98 12/19/16 00:30 98 12/19/16 00:15 97 12/19/16 00:08 12/19/16 00:00 97 12/18/16 23:45 97 12/18/16 23:40 97 12/18/16 23:33 12/18/16 23:30 97 12/18/16 23:15 97 12/18/16 23:00 97 12/18/16 22:45 97 12/18/16 22:30 98 12/18/16 22:15 97 12/18/16 22:00 97 12/18/16 21:45 96 12/18/16 21:30 98 12/18/16 21:15 97 12/18/16 21:00 97 12/18/16 20:45 98 12/18/16 20:30 99 12/18/16 20:15 98 12/18/16 20:00 98 12/18/16 19:45 97 12/18/16 19:38 12/18/16 19:30 97 12/18/16 19:23 12/18/16 19:16 95 12/18/16 19:15 94 12/18/16 19:00 94 12/18/16 18:45 93 12/18/16 18:30 93 12/18/16 18:15 93 12/18/16 18:00 93 12/18/16 17:45 92 12/18/16 17:30 91 12/18/16 17:28 12/18/16 17:15 96 12/18/16 17:00 95 12/18/16 16:45 98 12/18/16 16:30 97 12/18/16 16:15 97 12/18/16 16:00 97 12/18/16 15:53 12/18/16 15:45 100 12/18/16 15:38 97 12/18/16 15:30 94 12/18/16 15:15 94 12/18/16 15:00 93 12/18/16 14:45 94 12/18/16 14:30 97 12/18/16 14:15 89 12/18/16 14:00 94 12/18/16 13:45 97 12/18/16 13:30 98 12/18/16 13:15 98 12/18/16 13:00 99 12/18/16 12:45 99 12/18/16 12:30 100 12/18/16 12:15 100 12/18/16 12:14 12/18/16 12:00 100 12/18/16 11:45 100 12/18/16 11:44 100 - Physical Examination General: Other (ventilated via trach) Cardiac: Positive: Reg Rate and Rhythm - Labs and Meds CBC 12/19/16 Range/Units 05:02 WBC 20.1 H (4.5-11.0) K/mm3 RBC 2.73 L (3.65-5.03) M/mm3 Hgb 7.6 L (10.1-14.3) gm/dl Hct 23.6 L (30.3-42.9) % Plt Count 354 (140-440) K/mm3 Lymph # [employer] [place] # [employer] 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
--- NOTE | 2016-12-19 13:14 | Progress Note ---
Assessment and Plan Assessment and plan: Patient is 46-year-old woman with a history of hypertension, diabetes mellitus, asthma, hyperlipidemia, chronic kidney disease and anxiety, who was brought in by family because she couldn't get her words out, her face was also twisted, she was admitted for acute CVA and accelerated hypertension, she had a hx of poor adherence with her medications, and uncontrolled htn. Patient's SBP on admission was noted be greater than 260. TPA was started but this it was discontinued after 5 minutes because her blood pressure became uncontrolled. The TPA was not initiated again because the patient was outside the TPA window. Patient has had a prolonged hospital stay complicated with recurrent severe sepsis. Patient with most recent event also status post cardiac arrest on and received CPR. -Severe Sepsis with septic shock, recurrent. Patient with multiple episodes of sepsis. Initial episode due to presumed aspiration pneumonia and septic episode on 09/23 from candidemia then a third episode from peritonitis from gastric perforation from dislodged PEG +/-UTI. Patient was also noted to have had Candidemia with Blood cultures positive for Silvia albicans 09/23, 09/25 but negative on 09/30. Antibiotic discontinued on 12/05 per ID. patient is s/p R thoracentesis on 11/14, 240cc of serous fluid removed, cx of fluid was negative. Also, Stool negative for C. difficile -Surgical wound infection/gram-negative sepsis/candidemia/peritonitis/fungemia. Continue wound care to ostomy sites -Acute hypoxic respiratory failure, status post tracheostomy Patient placed back on ventilation. Patient currently with CPAP mode. Patient failed T-piece trials. Tracheostomy tube leak. Pulmonary following -Acute massive CVA with mass effect; continue antiplatelets and statins CT showed continued evolution of left MCA infarct with slight mass effect and edema, and there is no hemorrhage -PRINCE showed hyperdynamic ventricle with ef of 75%, neither clot nor septal defect seen -MRA Brain shows near complete occlusion of M2 and M3 of the left MCA carotid doppler negative -Echo shows preserved systolic function but does show some left ventricular diastolic dysfunction -continue asa and statin -Oliguric acute kidney injury. Etiology secondary to ATN on CKD. Baseline creatinine is approximately 1.7. -Dislodged PEG tube: Status post repair of gastric perforation which wedge gastrectomy -Paroxysmal atrial fibrillation with rapid ventricular rate, failed cardioversion Continue current medications, Not a candidate for anticoagulation secondary to anemia, thrombocytopenia and massive CVA -Anemia; probably secondary to GI bleeding Patient received multiple units of PRBC in the past, hemoglobin currently stable -Toxic metabolic encephalopathy; supportive care -Diabetes mellitus type 2, Insulin/SSI -Severe protein caloric malnutrition, cont TPN -s/p Thrombocytopenia. Now resolved -DVT prophylaxis, SCDs, no pharmacological agent given anemia , thrombocytopenia , massive stroke -Full code status, very poor prognosis now on TPN 12/18/16: yesterday pt became hypotensive after dialysis and Vasopressin was started by Dr. Lara. She was given iv hydralazine overnight. She is still on Vasopressin, now back in AFib/aflutter with RVR. i d/w Dr. Rollins who recommends iv amiodarone drip without bolus. I also spoke with [facility], Dr. De Leon. per Dr. Rollins: Paroxysmal Afib s/p failed cardioversion on 09/25 on IV lopressor for suppression considered not a candidate for anticoagulation due to severe anemia requiring blood transfusion 12/19/16: still on vasopressin, convert back to sinus, not on Amiodarone. Still on TPN, reorder restraints History Interval history: Patient seen and examined. Follow up on current diagnosis/respiratory failure. Still intubated, Imaging, old records, testing, labs, nursing notes reviewed. Hospitalist Physical - Physical exam Narrative exam: GEN: Ill appearing, trach, staring NECK: SUPPLE, trach in place, ngt in place CVS: regular currently NORMAL S1S2 LUNGS/CHEST: NORMAL CHEST EXPANSION B, GOOD AIR ENTRY B ABD: SOFT, NTND, 3 ostomy bags in 3 different locations, GBS, NO REBOUND OR GUARDING EXT/SKIN: NO SIGNIFICANT EDEMA OR RASH MSK: +spontaneous movement NEURO: CN 2-12 GROSSLY INTACT, on a ventilator PSY: Comatose, - Constitutional Vitals: Temp Pulse Resp BP Pulse Ox 97.3 F L 95 H 29 H 87/52 100 12/19/16 11:29 12/19/16 12:44 12/19/16 12:15 12/19/16 12:44 12/19/16 12:47 Results - Labs CBC & Chem 7: 12/19/16 05:02 12/19/16 09:30 Labs: Laboratory Last Values WBC 20.1 K/mm3 (4.5-11.0) H 12/19/16 05:02 RBC 2.73 M/mm3 (3.65-5.03) L 12/19/16 05:02 Hgb 7.6 gm/dl (10.1-14.3) L 12/19/16 05:02 Hct 23.6 % (30.3-42.9) L 12/19/16 05:02 MCV 86 fl (79-97) 12/19/16 05:02 MCH 28 pg (28-32) 12/19/16 05:02 MCHC 32 % (30-34) 12/19/16 05:02 RDW 17.6 % (13.2-15.2) H 12/19/16 05:02 Plt Count 354 K/mm3 (140-440) 12/19/16 05:02 Lymph % (Auto) Coffee Grinder 12/19/16 05:02 [place] % (Auto) Coffee Grinder 12/19/16 05:02 Eos % (Auto) Coffee Grinder 12/19/16 05:02 Baso % (Auto) Coffee Grinder 12/19/16 05:02 Lymph # Coffee Grinder 12/19/16 05:02 [place] # Coffee Grinder 12/19/16 05:02 Eos # Coffee Grinder 12/19/16 05:02 Baso # Coffee Grinder 12/19/16 05:02 Add Manual Diff Complete 12/19/16 05:02 Total Counted 100 12/19/16 05:02 Seg Neutrophils % Coffee Grinder 12/19/16 05:02 Seg Neuts % (Manual) 64.0 % (40.0-70.0) 12/19/16 05:02 Band Neutrophils % 15.0 % 12/19/16 05:02 Lymphocytes % (Manual) 13.0 % (13.4-35.0) L 12/19/16 05:02 Reactive Lymphs % (Man) 0 % 12/19/16 05:02 Monocytes % (Manual) 7.0 % (0.0-7.3) 12/19/16 05:02 Eosinophils % (Manual) 0 % (0.0-4.3) 12/19/16 05:02 Basophils % (Manual) 1.0 % (0.0-1.8) 12/19/16 05:02 Metamyelocytes % 0 % 12/19/16 05:02 Myelocytes % 0 % 12/19/16 05:02 Promyelocytes % 0 % 12/19/16 05:02 Blast Cells % 0 % 12/19/16 05:02 Nucleated RBC % 1.0 % (0.0-0.9) H 12/19/16 05:02 Seg Neutrophils # Coffee Grinder 12/19/16 05:02 Seg Neutrophils # Man 12.9 K/mm3 (1.8-7.7) H 12/19/16 05:02 Band Neutrophils # 3.0 K/mm3 12/19/16 05:02 Lymphocytes # (Manual) 2.6 K/mm3 (1.2-5.4) 12/19/16 05:02 Abs React Lymphs (Man) 0.0 K/mm3 12/19/16 05:02 Monocytes # (Manual) 1.4 K/mm3 (0.0-0.8) H 12/19/16 05:02 Eosinophils # (Manual) 0.0 K/mm3 (0.0-0.4) 12/19/16 05:02 Basophils # (Manual) 0.2 K/mm3 (0.0-0.1) H 12/19/16 05:02 Metamyelocytes # 0.0 K/mm3 12/19/16 05:02 Myelocytes # 0.0 K/mm3 12/19/16 05:02 Promyelocytes # 0.0 K/mm3 12/19/16 05:02 Blast Cells # 0.0 K/mm3 12/19/16 05:02 Pathologist Review 09/13/16 04:00 WBC Morphology Not Reportable 12/19/16 05:02 Hypersegmented Neuts Not Reportable 12/19/16 05:02 Hyposegmented Neuts Not Reportable 12/19/16 05:02 Hypogranular Neuts Not Reportable 12/19/16 05:02 Smudge Cells Not Reportable 12/19/16 05:02 Toxic Granulation Not Reportable 12/19/16 05:02 Toxic Vacuolation Not Reportable 12/19/16 05:02 Dohle Bodies Not Reportable 12/19/16 05:02 Pelger-Huet Anomaly Not Reportable 12/19/16 05:02 Jasmina Rods Not Reportable 12/19/16 05:02 Platelet Estimate Consistent w auto 12/19/16 05:02 Clumped Platelets Not Reportable 12/19/16 05:02 Plt Clumps, EDTA Not Reportable 12/19/16 05:02 Large Platelets Not Reportable 12/19/16 05:02 Giant Platelets Not Reportable 12/19/16 05:02 Platelet Satelliting Not Reportable 12/19/16 05:02 Plt Morphology Comment Not Reportable 12/19/16 05:02 RBC Morphology Not Reportable 12/19/16 05:02 Dimorphic RBCs Not Reportable 12/19/16 05:02 Polychromasia Not Reportable 12/19/16 05:02 Hypochromasia Not Reportable 12/19/16 05:02 Poikilocytosis Not Reportable 12/19/16 05:02 Anisocytosis Not Reportable 12/19/16 05:02 Microcytosis Not Reportable 12/19/16 05:02 Macrocytosis Not Reportable 12/19/16 05:02 Spherocytes Not Reportable 12/19/16 05:02 Pappenheimer Bodies Not Reportable 12/19/16 05:02 Sickle Cells Not Reportable 12/19/16 05:02 Target Cells Few 12/19/16 05:02 Tear Drop Cells Not Reportable 12/19/16 05:02 Ovalocytes Not Reportable 12/19/16 05:02 Stomatocytes Rare 12/03/16 04:00 Helmet Cells Not Reportable 12/19/16 05:02 [place] Bodies Not Reportable 12/19/16 05:02 [place] Rings Not Reportable 12/19/16 05:02 Chuck Cells Not Reportable 12/19/16 05:02 Bite Cells Not Reportable 12/19/16 05:02 Crenated Cell Not Reportable 12/19/16 05:02 Elliptocytes Not Reportable 12/19/16 05:02 Acanthocytes (Spur) Not Reportable 12/19/16 05:02 Rouleaux Not Reportable 12/19/16 05:02 Hemoglobin C Crystals Not Reportable 12/19/16 05:02 Schistocytes Not Reportable 12/19/16 05:02 Malaria parasites Not Reportable 12/19/16 05:02 ESR > 140.0 mm/Hr (0-20) 09/08/16 11:48 Jun Bodies Not Reportable 12/19/16 05:02 Hem Pathologist Commnt No 12/19/16 05:02 PT 16.8 Sec. (12.2-14.9) H 11/17/16 03:20 INR 1.37 (0.87-1.13) H 11/17/16 03:20 APTT 33.0 Sec. (24.2-36.6) 10/09/16 03:45 Thrombin Time 16.8 Sec. (15.1-19.6) 09/03/16 00:10 Fibrinogen 750 mg/dl (211-480) H 09/08/16 11:48 Lupus Anticoagulant see below 09/12/16 09:59 LA PTT Baseline See scanned report 09/12/16 09:59 dRVVT Confirm Interp Positive (Negative) H 09/12/16 09:59 dRVVT Screen 50:50 See scanned report 09/12/16 09:59 dRVVT Mix Interpret See scanned report 09/12/16 09:59 Protein C Antigen 122 % (70-140) 09/08/16 15:35 Free Protein S 97 % normal (50-147) 09/08/16 15:35 Total Protein S 109 % (70-140) 09/08/16 15:35 Antithrombin III Ag 100 % (80-120) 09/08/16 15:35 Heparin Anti-Xa, Unfract Negative (Negative) 09/29/16 13:35 Factor V Activity 182 % (65-150) H 09/08/16 15:35 POC ABG pH 7.503 (7.35-7.45) H 12/19/16 09:36 ABG pH 7.450 pH Units (7.350-7.450) 12/05/16 Unknown POC ABG pCO2 30.1 (35-45) L 12/19/16 09:36 ABG pCO2 29.6 mm Hg 12/05/16 Unknown POC ABG pO2 85 (80-105) 12/19/16 09:36 ABG pO2 75.2 mm Hg (80.0-90.0) L 12/05/16 Unknown POC ABG HCO3 23.6 12/19/16 09:36 ABG HCO3 20.1 mmol/L (20.0-26.0) 12/05/16 Unknown POC ABG Total CO2 25 12/19/16 09:36 POC ABG O2 Sat 97 12/19/16 09:36 ABG O2 Saturation 96.8 % (95.0-99.0) 12/05/16 Unknown ABG O2 Content 9.9 (0.0-44) 12/05/16 Unknown POC ABG Base Excess 1 12/19/16 09:36 ABG Base Excess -3.4 mmol/L (-2.0-3.0) L 12/05/16 Unknown ABG Hemoglobin 7.4 gm/dl (12.0-16.0) L 12/05/16 Unknown ABG Carboxyhemoglobin 1.8 % (0.0-5.0) 12/05/16 Unknown ABG Methemoglobin 0.6 % (0.0-1.5) 12/05/16 Unknown Oxyhemoglobin 94.5 % (95.0-99.0) L 12/05/16 Unknown FiO2 28 % 12/19/16 09:36 Sodium 138 mmol/L (137-145) 12/19/16 09:30 Potassium 3.7 mmol/L (3.6-5.0) 12/19/16 09:30 Chloride 97.8 mmol/L (98-107) L 12/19/16 09:30 Carbon Dioxide 24 mmol/L (22-30) 12/19/16 09:30 Anion Gap 20 mmol/L 12/19/16 09:30 BUN 84 mg/dL (7-17) H 12/19/16 09:30 Creatinine 1.6 mg/dL (0.7-1.2) H 12/19/16 09:30 Estimated GFR 42 ml/min 12/19/16 09:30 BUN/Creatinine Ratio 53 % 12/19/16 09:30 Glucose 133 mg/dL (65-100) H 12/19/16 09:30 POC Glucose 134 (70-105) H 12/19/16 05:24 Osmolality 351 Mosm/kg 09/16/16 11:47 Lactic Acid 4.50 mmol/L (0.7-2.0) H* 09/28/16 07:25 Calcium 8.8 mg/dL (8.4-10.2) 12/19/16 09:30 Phosphorus 2.50 mg/dL (2.5-4.5) D 12/19/16 09:30 Magnesium 2.10 mg/dL (1.7-2.3) 12/18/16 05:00 Total Bilirubin 0.90 mg/dL (0.1-1.2) 12/18/16 05:00 Direct Bilirubin 0.3 mg/dL (0-0.2) H 10/10/16 05:00 Indirect Bilirubin 0.1 mg/dL 10/10/16 05:00 AST 34 units/L (5-40) 12/18/16 05:00 ALT 42 units/L (7-56) 12/18/16 05:00 Alkaline Phosphatase 257 units/L (35-129) H 12/18/16 05:00 Ammonia 27.0 umol/L (25-60) 09/07/16 08:37 Lactate Dehydrogenase 196 units/L (91-180) H 11/11/16 06:59 Total Creatine Kinase 121 units/L (30-135) 09/29/16 20:12 CK-MB (CK-2) < 1.0 ng/mL (0.0-4.0) 09/29/16 20:12 CK-MB (CK-2) Rel Index 0.8 (0-4) 09/29/16 20:12 Troponin T 0.204 ng/mL (0.00-0.029) H* 09/29/16 20:12 C-Reactive Protein 19.30 mg/dL (0.00-1.30) H 12/05/16 05:00 Total Protein 5.9 g/dL (6.3-8.2) L 12/18/16 05:00 Albumin 1.8 g/dL (3.9-5) L 12/18/16 05:00 Albumin/Globulin Ratio 0.4 % 12/18/16 05:00 Prealbumin 0.180 g/L (0.200-0.400) L 11/06/16 06:25 Triglycerides 137 mg/dL (2-149) 09/29/16 20:12 Cholesterol 31 mg/dL (50-199) L 09/29/16 20:12 LDL Cholesterol Direct 4 mg/dL (50-130) L 09/29/16 20:12 HDL Cholesterol 3 mg/dL (40-59) L 09/29/16 20:12 Cholesterol/HDL Ratio 10.33 % 09/29/16 20:12 Angiotensin Convert Enz See scanned report 09/08/16 11:48 Renin 0.99 ng/mL/h (0.25-5.82) 10/07/16 10:56 Aldosterone <1 ng/dL () 10/07/16 10:56 Aldosterone/Renin Dir see below 10/07/16 10:56 Serotonin Release Assay See scanned report 09/29/16 13:35 TSH 1.010 mlU/mL (0.270-4.200) 09/07/16 08:37 HCG, Qual Negative (Negative) 09/03/16 00:10 Urine Color Yellow (Yellow) 11/05/16 13:09 Urine Turbidity Clear (Clear) 11/05/16 13:09 Urine pH 9.0 (5.0-7.0) H 11/05/16 13:09 Ur Specific [place] 1.011 (1.003-1.030) 11/05/16 13:09 Urine Protein 100 mg/dl mg/dL (Negative) 11/05/16 13:09 Urine Glucose (UA) Neg mg/dL (Negative) 11/05/16 13:09 Urine Ketones Neg mg/dL (Negative) 11/05/16 13:09 Urine Blood Neg (Negative) 11/05/16 13:09 Urine Nitrite Neg (Negative) 11/05/16 13:09 Urine Bilirubin Neg (Negative) 11/05/16 13:09 Urine Urobilinogen < 2.0 mg/dL (<2.0) 11/05/16 13:09 Ur Leukocyte Esterase Neg (Negative) 11/05/16 13:09 Urine WBC (Auto) 4.0 /HPF (0.0-6.0) 11/05/16 13:09 Urine RBC (Auto) 1.0 /HPF (0.0-6.0) 11/05/16 13:09 U Epithel Cells (Auto) 1.0 /HPF (0-13.0) 10/07/16 18:30 Urine Bacteria (Auto) 4+ /HPF (Negative) 11/05/16 13:09 Urine WBC Clumps 2+ /HPF 09/07/16 02:47 Hyaline Casts 4 /LPF 09/07/16 02:47 Urine Mucus Few /HPF 10/07/16 18:30 Urine Yeast (Budding) 3+ /HPF 10/07/16 18:30 Urine Eosinophils None seen (None Seen) 09/07/16 16:00 Urine Total Volume 950 11/12/16 10:18 Urine Creatinine 19.7 mg/dL (0.1-20.0) 11/12/16 10:18 Height (in) 65.0 inches 11/12/16 10:18 Weight (lb) 181.0 lbs 11/12/16 10:18 Creatinine Clearance 5 11/12/16 10:18 Urine Sodium 36 mEq/L 09/16/16 19:19 Urine Total Protein 16 mg/dL (5-11.8) H 09/16/16 19:19 Fluid Total Protein < 3.0 (15.0-45.0) L 11/10/16 14:20 Fluid LDH 123 11/10/16 14:20 Vancomycin Trough 2.3 ug/mL (5.0-20.0) L 09/21/16 13:00 Random Vancomycin 16.5 ug/mL (0-40.0) 11/28/16 09:45 Urine Opiates Screen Presumptive negative 09/03/16 15:11 Urine Methadone Screen Presumptive positive 09/03/16 15:11 Ur Barbiturates Screen Presumptive positive 09/03/16 15:11 Ur Phencyclidine Scrn Presumptive negative 09/03/16 15:11 Ur Amphetamines Screen Presumptive negative 09/03/16 15:11 U Benzodiazepines Scrn Presumptive negative 09/03/16 15:11 Urine Cocaine Screen Presumptive negative 09/03/16 15:11 U Marijuana (THC) Screen Presumptive positive 09/03/16 15:11 Drugs of Abuse Note Disclamer 09/03/16 15:11 Rheumatoid Factor 24 IU/ml (0-13) H 09/08/16 11:48 SAHIL Screen Negative (Negative) 09/07/16 09:20 Proteinase 3 (PR3) Ab <1.0 AI (<1.0) 09/07/16 09:20 Myeloperoxidase Ab <1.0 AI (<1.0) 09/07/16 09:20 Sjogren's Antibody <1.0 AI (<1.0) 09/08/16 15:35 Scl-70 Scleroderma Ab <1.0 AI (<1.0) 09/08/16 15:35 Centromere B Antibody <1.0 AI (<1.0) 09/08/16 12:02 Heparin-induced Plt Ab Negative (Negative) 09/29/16 13:35 UF Heparin High Dose 11 % Release 09/29/16 13:35 SUDHIR UFH Low Dose 0.1 6 % Release 09/29/16 13:35 SUDHIR UFH Low Dose 0.5 8 % Release 09/29/16 13:35 Cardiolipid IgG Ab <14 GPL (<=14) 09/12/16 09:59 Cardiolipid IgA Ab <11 APL (<=11) 09/12/16 09:59 Cardiolipid IgM Ab <12 MPL (<=12) 09/12/16 09:59 Complement C3 148 mg/dL (90-180) 09/07/16 09:20 Complement C4 58 mg/dL (16-47) H 09/07/16 09:20 RPR Nonreactive (Nonreactive) 09/08/16 11:48 Hepatitis A IgM Ab Non-reactive (NonReactive) 09/24/16 14:40 Hep Bs Antigen Non-reactive (Negative) 09/24/16 14:40 Hep B Core IgM Ab Non-reactive (NonReactive) 09/24/16 14:40 Hepatitis C Antibody Non-reactive (NonReactive) 09/24/16 14:40 HIV 1&2 Antibody Rapid Non react (Non React) 09/08/16 11:48 HIV P24 Antigen Non react (Non React) 09/08/16 11:48 Miscellaneous Test Flexitest 1 H 11/05/16 13:25 Blood Type A POSITIVE 12/16/16 16:25 Antibody Screen Negative 12/16/16 16:25 DELORIS Antibody Screen Negative 11/24/16 11:20 Crossmatch See Detail 12/16/16 16:25
--- NOTE | 2016-12-19 13:57 | Progress Note ---
Assessment and Plan Acute Hypoxemic Respiratory Failure (now with exacerbation and back on MVS) Hypertension (unable to receive p.o. meds) Atrial Fibrillation with RVR s/p tracheostomy Acute encephalopathy s/p CVA Oropharyngeal dysphagia Enterococcal bacteremia sepsis syndrome Anemia Obesity JUANITA now on hemodialysis Enteric Fistula - Atrial fib with RVR responded to volume bolus and resolved - continue prn vasopressin if MAP falls < 60mmHg - prn CRP & lactate levels if clinically indicated (Follow WBC also) - keep on with daily PSV trials and / or T-piece as tolerated (repeat trial each shift if failed earlier shift)(held today) - continue TPN administration (continue TPN; NPO except for meds) - continue scopolamine for secretion control - continue to wean FiO2 for sats > 94% - continue bronchodilators and pulmonary toilet - VAP bundle addressed - continue prn IV metorolol - continue metoprolol and amlodipine (hold for hypotension) - continue HD/UF per nephrology (Teu/Thurs/Sat) - continue to follow electrolytes and correct as necessary - continue GI & VTE prophylaxis - Continue flu & pneumovax per protocol .....she remains critically ill on life sustaining interventions including MVS and at risk for further deterioration including ....30' CCT today without overlap ...[facility] prognosis remains guarded Subjective Date of service: 12/19/16 Principal diagnosis: Acute resp failure on MVS; S/P Acute CVA; Acute Encephalopathy; JUANITA Interval history: Patient is seen today for: Acute resp failure on MVS; S/P Acute CVA; Acute Encephalopathy; JUANITA Seen and examined at bedside; 24hour events reviewed; nursing and respiratory care staff consulted; no adverse overnight events reported to me; remains on MVS ; failing PSV trial;s; remains on dialysis; + intermittent bilious emesis Objective Vital Signs - 12hr 12/19/16 12/19/16 12/19/16 02:00 02:15 02:30 Temperature Pulse Rate 93 H 94 H 93 H Pulse Rate [ Anterior Bilateral Throughout] Respiratory 19 24 13 Rate Respiratory Rate [Anterior Bilateral Throughout] Blood Pressure 133/83 129/86 125/76 O2 Sat by Pulse 98 98 98 Oximetry O2 Sat by Pulse Oximetry [ Assessment] 12/19/16 12/19/16 12/19/16 02:45 03:00 03:15 Temperature Pulse Rate 95 H 94 H 96 H Pulse Rate [ Anterior Bilateral Throughout] Respiratory 8 L 14 13 Rate Respiratory Rate [Anterior Bilateral Throughout] Blood Pressure 133/87 125/83 133/84 O2 Sat by Pulse 98 98 98 Oximetry O2 Sat by Pulse Oximetry [ Assessment] 12/19/16 12/19/16 12/19/16 03:30 03:45 03:51 Temperature 98 F Pulse Rate 97 H 96 H Pulse Rate [ Anterior Bilateral Throughout] Respiratory 13 23 Rate Respiratory Rate [Anterior Bilateral Throughout] Blood Pressure 137/86 129/84 O2 Sat by Pulse 98 98 Oximetry O2 Sat by Pulse Oximetry [ Assessment] 12/19/16 12/19/16 12/19/16 04:00 04:15 04:30 Temperature Pulse Rate 99 H 99 H 96 H Pulse Rate [ Anterior Bilateral Throughout] Respiratory 21 21 16 Rate Respiratory Rate [Anterior Bilateral Throughout] Blood Pressure 139/88 143/86 129/86 O2 Sat by Pulse 98 98 99 Oximetry O2 Sat by Pulse Oximetry [ Assessment] 12/19/16 12/19/16 12/19/16 04:45 05:00 05:15 Temperature Pulse Rate 98 H 97 H 103 H Pulse Rate [ Anterior Bilateral Throughout] Respiratory 11 L 15 20 Rate Respiratory Rate [Anterior Bilateral Throughout] Blood Pressure 132/90 132/90 151/103 O2 Sat by Pulse 99 99 99 Oximetry O2 Sat by Pulse Oximetry [ Assessment] 12/19/16 12/19/16 12/19/16 05:31 05:45 06:00 Temperature Pulse Rate 104 H 102 H 99 H Pulse Rate [ Anterior Bilateral Throughout] Respiratory 26 H 25 H Rate Respiratory Rate [Anterior Bilateral Throughout] Blood Pressure 151/103 126/71 114/67 O2 Sat by Pulse 97 95 97 Oximetry O2 Sat by Pulse Oximetry [ Assessment] 12/19/16 12/19/16 12/19/16 06:15 06:30 06:45 Temperature Pulse Rate 97 H 97 H 91 H Pulse Rate [ Anterior Bilateral Throughout] Respiratory 23 24 21 Rate Respiratory Rate [Anterior Bilateral Throughout] Blood Pressure 118/67 117/72 106/55 O2 Sat by Pulse 98 98 98 Oximetry O2 Sat by Pulse Oximetry [ Assessment] 12/19/16 12/19/16 12/19/16 06:47 06:48 07:00 Temperature Pulse Rate 94 H 94 H 87 Pulse Rate [ Anterior Bilateral Throughout] Respiratory 23 Rate Respiratory Rate [Anterior Bilateral Throughout] Blood Pressure 118/64 118/64 100/45 O2 Sat by Pulse 98 Oximetry O2 Sat by Pulse Oximetry [ Assessment] 12/19/16 12/19/16 12/19/16 07:15 07:30 07:45 Temperature Pulse Rate 85 87 86 Pulse Rate [ Anterior Bilateral Throughout] Respiratory 25 H 16 24 Rate Respiratory Rate [Anterior Bilateral Throughout] Blood Pressure 94/39 91/47 92/46 O2 Sat by Pulse 97 98 98 Oximetry O2 Sat by Pulse Oximetry [ Assessment] 12/19/16 12/19/16 12/19/16 08:00 08:15 08:30 Temperature 97.4 F L Pulse Rate 86 86 84 Pulse Rate [ Anterior Bilateral Throughout] Respiratory 23 24 22 Rate Respiratory Rate [Anterior Bilateral Throughout] Blood Pressure 89/46 91/52 91/39 O2 Sat by Pulse 97 98 98 Oximetry O2 Sat by Pulse Oximetry [ Assessment] 12/19/16 12/19/16 12/19/16 08:45 09:00 09:15 Temperature Pulse Rate 83 83 88 Pulse Rate [ Anterior Bilateral Throughout] Respiratory 19 16 18 Rate Respiratory Rate [Anterior Bilateral Throughout] Blood Pressure 85/39 87/48 103/61 O2 Sat by Pulse 98 99 99 Oximetry O2 Sat by Pulse Oximetry [ Assessment] 12/19/16 12/19/16 12/19/16 09:30 09:33 09:35 Temperature Pulse Rate 87 84 Pulse Rate [ 82 Anterior Bilateral Throughout] Respiratory 20 Rate Respiratory 22 Rate [Anterior Bilateral Throughout] Blood Pressure 89/54 103/61 O2 Sat by Pulse 99 99 Oximetry O2 Sat by Pulse Oximetry [ Assessment] 12/19/16 12/19/16 12/19/16 09:42 09:45 10:00 Temperature Pulse Rate 89 84 Pulse Rate [ 87 Anterior Bilateral Throughout] Respiratory 24 18 Rate Respiratory 12 Rate [Anterior Bilateral Throughout] Blood Pressure 99/60 89/49 O2 Sat by Pulse 99 99 Oximetry O2 Sat by Pulse Oximetry [ Assessment] 12/19/16 12/19/16 12/19/16 10:15 10:30 10:45 Temperature Pulse Rate 90 91 H 91 H Pulse Rate [ Anterior Bilateral Throughout] Respiratory 23 16 21 Rate Respiratory Rate [Anterior Bilateral Throughout] Blood Pressure 99/62 97/58 100/60 O2 Sat by Pulse 97 97 97 Oximetry O2 Sat by Pulse Oximetry [ Assessment] 12/19/16 12/19/16 12/19/16 11:00 11:15 11:29 Temperature 97.3 F L Pulse Rate 92 H 93 H Pulse Rate [ Anterior Bilateral Throughout] Respiratory 28 H 28 H Rate Respiratory Rate [Anterior Bilateral Throughout] Blood Pressure 96/61 102/64 O2 Sat by Pulse 97 97 Oximetry O2 Sat by Pulse Oximetry [ Assessment] 12/19/16 12/19/16 12/19/16 11:30 11:45 12:00 Temperature Pulse Rate 94 H 94 H 94 H Pulse Rate [ Anterior Bilateral Throughout] Respiratory 16 31 H 26 H Rate Respiratory Rate [Anterior Bilateral Throughout] Blood Pressure 96/55 97/59 94/52 O2 Sat by Pulse 97 97 92 Oximetry O2 Sat by Pulse Oximetry [ Assessment] 12/19/16 12/19/16 12/19/16 12:15 12:17 12:44 Temperature Pulse Rate 93 H 92 H 95 H Pulse Rate [ Anterior Bilateral Throughout] Respiratory 29 H Rate Respiratory Rate [Anterior Bilateral Throughout] Blood Pressure 84/47 89/54 87/52 O2 Sat by Pulse 92 100 Oximetry O2 Sat by Pulse Oximetry [ Assessment] 12/19/16 12:47 Temperature Pulse Rate Pulse Rate [ Anterior Bilateral Throughout] Respiratory Rate Respiratory Rate [Anterior Bilateral Throughout] Blood Pressure O2 Sat by Pulse Oximetry O2 Sat by Pulse 100 Oximetry [ Assessment] Constitutional: appears uncomfortable, other (not tracking) Eyes: non-icteric, other (tracheostomy tube in midline of neck) ENT: oropharynx moist, oropharyngeal exudate pre Neck: supple, no lymphadenopathy, no JVD, other (no thyromegaly) Effort: mildly labored Ascultation: Left: diminished breath sounds (base), Bilateral: rales Percussion: Left: dull (base), Bilateral: not dull Cardiovascular: regular rate and rhythm, other (no rubs / murmurs) Gastrointestinal: hypoactive bowel sounds, soft, non-tender, non-distended, other (RLQ & LUQ stomas with colostomy bags) Integumentary: other (no rash; no cellulitis; poor turgor) Extremities: no cyanosis, pulses normal, no ischemia or petechiae, edema (1+ bilaterally) Neurologic: pupils equal and round, unable to assess, other (encephalopathic) Psychiatric: other (unable to assess) CBC and BMP: 12/19/16 05:02 12/23/16 05:00 ABG, PT/INR, D-dimer: ABG POC ABG pH 7.503 (7.35-7.45) H 12/19/16 09:36 ABG pH 7.450 pH Units (7.350-7.450) 12/05/16 Unknown POC ABG pCO2 30.1 (35-45) L 12/19/16 09:36 ABG pCO2 29.6 mm Hg 12/05/16 Unknown POC ABG pO2 85 (80-105) 12/19/16 09:36 ABG pO2 75.2 mm Hg (80.0-90.0) L 12/05/16 Unknown POC ABG HCO3 23.6 12/19/16 09:36 POC ABG Total CO2 25 12/19/16 09:36 POC ABG O2 Sat 97 12/19/16 09:36 ABG O2 Saturation 96.8 % (95.0-99.0) 12/05/16 Unknown PT/INR, D-dimer PT 16.8 Sec. (12.2-14.9) H 11/17/16 03:20 INR 1.37 (0.87-1.13) H 11/17/16 03:20 Abnormal lab findings: Abnormal Labs 09/03/16 09/03/16 09/03/16 12:12 15:07 16:20 WBC RBC Hgb Hct MCV MCH MCHC RDW Plt Count Lymph % (Auto) [place] % (Auto) Lymph # [place] # Baso # Seg Neutrophils % Seg Neuts % (Manual) Lymphocytes % (Manual) Monocytes % (Manual) Eosinophils % (Manual) Basophils % (Manual) Nucleated RBC % Seg Neutrophils # Seg Neutrophils # Man Lymphocytes # (Manual) Monocytes # (Manual) Eosinophils # (Manual) Basophils # (Manual) PT INR Fibrinogen dRVVT Confirm Interp Factor V Activity POC ABG pH 7.452 H POC ABG pCO2 POC ABG pO2 ABG pO2 ABG HCO3 ABG Base Excess ABG Hemoglobin Oxyhemoglobin Sodium Potassium Chloride Carbon Dioxide BUN Creatinine Glucose POC Glucose 178 H Lactic Acid Calcium Phosphorus 2.20 L Magnesium 1.60 L Direct Bilirubin AST ALT Alkaline Phosphatase Lactate Dehydrogenase Troponin T C-Reactive Protein Total Protein Albumin Prealbumin Triglycerides Cholesterol LDL Cholesterol Direct HDL Cholesterol Urine pH Urine WBC (Auto) Urine Creatinine Urine Total Protein Fluid Total Protein Vancomycin Trough Rheumatoid Factor Complement C4 Miscellaneous Test Crossmatch 09/03/16 09/03/16 09/03/16 17:57 17:58 23:50 WBC RBC Hgb Hct MCV MCH MCHC RDW Plt Count Lymph % (Auto) [place] % (Auto) Lymph # [place] # Baso # Seg Neutrophils % Seg Neuts % (Manual) Lymphocytes % (Manual) Monocytes % (Manual) Eosinophils % (Manual) Basophils % (Manual) Nucleated RBC % Seg Neutrophils # Seg Neutrophils # Man Lymphocytes # (Manual) Monocytes # (Manual) Eosinophils # (Manual) Basophils # (Manual) PT INR Fibrinogen dRVVT Confirm Interp Factor V Activity POC ABG pH POC ABG pCO2 POC ABG pO2 ABG pO2 ABG HCO3 ABG Base Excess ABG Hemoglobin Oxyhemoglobin Sodium Potassium Chloride Carbon Dioxide BUN Creatinine Glucose POC Glucose 162 H 145 H Lactic Acid Calcium Phosphorus 2.30 L Magnesium Direct Bilirubin AST ALT Alkaline Phosphatase Lactate Dehydrogenase Troponin T C-Reactive Protein Total Protein Albumin Prealbumin Triglycerides Cholesterol LDL Cholesterol Direct HDL Cholesterol Urine pH Urine WBC (Auto) Urine Creatinine Urine Total Protein Fluid Total Protein Vancomycin Trough Rheumatoid Factor Complement C4 Miscellaneous Test Crossmatch 09/04/16 09/04/16 09/04/16 03:31 03:31 05:42 WBC RBC Hgb 9.7 L D Hct MCV 72 L MCH 23 L MCHC RDW 17.5 H Plt Count Lymph % (Auto) 11.1 L [place] % (Auto) Lymph # [place] # Baso # Seg Neutrophils % 84.3 H Seg Neuts % (Manual) Lymphocytes % (Manual) Monocytes % (Manual) Eosinophils % (Manual) Basophils % (Manual) Nucleated RBC % Seg Neutrophils # 8.9 H Seg Neutrophils # Man Lymphocytes # (Manual) Monocytes # (Manual) Eosinophils # (Manual) Basophils # (Manual) PT INR Fibrinogen dRVVT Confirm Interp Factor V Activity POC ABG pH POC ABG pCO2 POC ABG pO2 ABG pO2 ABG HCO3 ABG Base Excess ABG Hemoglobin Oxyhemoglobin Sodium 135 L Potassium 2.9 L* Chloride 97.2 L Carbon Dioxide 19 L BUN Creatinine 1.7 H Glucose 170 H POC Glucose 152 H Lactic Acid Calcium Phosphorus Magnesium Direct Bilirubin AST ALT Alkaline Phosphatase Lactate Dehydrogenase Troponin T C-Reactive Protein Total Protein Albumin Prealbumin Triglycerides 160 H Cholesterol LDL Cholesterol Direct HDL Cholesterol 31 L Urine pH Urine WBC (Auto) Urine Creatinine Urine Total Protein Fluid Total Protein Vancomycin Trough Rheumatoid Factor Complement C4 Miscellaneous Test Crossmatch 09/04/16 09/04/16 09/04/16 11:34 17:46 23:29 WBC RBC Hgb Hct MCV MCH MCHC RDW Plt Count Lymph % (Auto) [place] % (Auto) Lymph # [place] # Baso # Seg Neutrophils % Seg Neuts % (Manual) Lymphocytes % (Manual) Monocytes % (Manual) Eosinophils % (Manual) Basophils % (Manual) Nucleated RBC % Seg Neutrophils # Seg Neutrophils # Man Lymphocytes # (Manual) Monocytes # (Manual) Eosinophils # (Manual) Basophils # (Manual) PT INR Fibrinogen dRVVT Confirm Interp Factor V Activity POC ABG pH POC ABG pCO2 POC ABG pO2 ABG pO2 ABG HCO3 ABG Base Excess ABG Hemoglobin Oxyhemoglobin Sodium Potassium Chloride Carbon Dioxide BUN Creatinine Glucose POC Glucose 165 H 210 H 139 H Lactic Acid Calcium Phosphorus Magnesium Direct Bilirubin AST ALT Alkaline Phosphatase Lactate Dehydrogenase Troponin T C-Reactive Protein Total Protein Albumin Prealbumin Triglycerides Cholesterol LDL Cholesterol Direct HDL Cholesterol Urine pH Urine WBC (Auto) Urine Creatinine Urine Total Protein Fluid Total Protein Vancomycin Trough Rheumatoid Factor Complement C4 Miscellaneous Test Crossmatch 09/05/16 09/05/16 09/05/16 04:05 04:05 05:38 WBC RBC Hgb Hct MCV 76 L D MCH 23 L MCHC RDW 17.8 H Plt Count Lymph % (Auto) [place] % (Auto) Lymph # [place] # Baso # Seg Neutrophils % Seg Neuts % (Manual) Lymphocytes % (Manual) Monocytes % (Manual) Eosinophils % (Manual) Basophils % (Manual) Nucleated RBC % Seg Neutrophils # Seg Neutrophils # Man Lymphocytes # (Manual) Monocytes # (Manual) Eosinophils # (Manual) Basophils # (Manual) PT INR Fibrinogen dRVVT Confirm Interp Factor V Activity POC ABG pH POC ABG pCO2 POC ABG pO2 ABG pO2 ABG HCO3 ABG Base Excess ABG Hemoglobin Oxyhemoglobin Sodium 134 L Potassium Chloride Carbon Dioxide 18 L BUN Creatinine 1.8 H Glucose 192 H POC Glucose 175 H Lactic Acid Calcium Phosphorus Magnesium Direct Bilirubin AST ALT Alkaline Phosphatase Lactate Dehydrogenase Troponin T C-Reactive Protein Total Protein Albumin Prealbumin Triglycerides Cholesterol LDL Cholesterol Direct HDL Cholesterol Urine pH Urine WBC (Auto) Urine Creatinine Urine Total Protein Fluid Total Protein Vancomycin Trough Rheumatoid Factor Complement C4 Miscellaneous Test Crossmatch 0709/05/16 09/05/16 11:38 17:48 23:22 WBC RBC Hgb Hct MCV MCH MCHC RDW Plt Count Lymph % (Auto) [place] % (Auto) Lymph # [place] # Baso # Seg Neutrophils % Seg Neuts % (Manual) Lymphocytes % (Manual) Monocytes % (Manual) Eosinophils % (Manual) Basophils % (Manual) Nucleated RBC % Seg Neutrophils # Seg Neutrophils # Man Lymphocytes # (Manual) Monocytes # (Manual) Eosinophils # (Manual) Basophils # (Manual) PT INR Fibrinogen dRVVT Confirm Interp Factor V Activity POC ABG pH POC ABG pCO2 POC ABG pO2 ABG pO2 ABG HCO3 ABG Base Excess ABG Hemoglobin Oxyhemoglobin Sodium Potassium Chloride Carbon Dioxide BUN Creatinine Glucose POC Glucose 164 H 186 H 195 H Lactic Acid Calcium Phosphorus Magnesium Direct Bilirubin AST ALT Alkaline Phosphatase Lactate Dehydrogenase Troponin T C-Reactive Protein Total Protein Albumin Prealbumin Triglycerides Cholesterol LDL Cholesterol Direct HDL Cholesterol Urine pH Urine WBC (Auto) Urine Creatinine Urine Total Protein Fluid Total Protein Vancomycin Trough Rheumatoid Factor Complement C4 Miscellaneous Test Crossmatch 09/06/16 09/06/16 09/06/16 04:12 05:59 07:32 WBC RBC Hgb Hct MCV MCH MCHC RDW Plt Count Lymph % (Auto) [place] % (Auto) Lymph # [place] # Baso # Seg Neutrophils % Seg Neuts % (Manual) Lymphocytes % (Manual) Monocytes % (Manual) Eosinophils % (Manual) Basophils % (Manual) Nucleated RBC % Seg Neutrophils # Seg Neutrophils # Man Lymphocytes # (Manual) Monocytes # (Manual) Eosinophils # (Manual) Basophils # (Manual) PT INR Fibrinogen dRVVT Confirm Interp Factor V Activity POC ABG pH 7.514 H POC ABG pCO2 29.1 L POC ABG pO2 72 L ABG pO2 ABG HCO3 ABG Base Excess ABG Hemoglobin Oxyhemoglobin Sodium 133 L Potassium 3.4 L Chloride 94.9 L Carbon Dioxide 19 L BUN 30 H Creatinine 2.1 H Glucose 139 H POC Glucose 146 H Lactic Acid Calcium Phosphorus Magnesium Direct Bilirubin AST ALT Alkaline Phosphatase Lactate Dehydrogenase Troponin T C-Reactive Protein Total Protein Albumin Prealbumin Triglycerides Cholesterol LDL Cholesterol Direct HDL Cholesterol Urine pH Urine WBC (Auto) Urine Creatinine Urine Total Protein Fluid Total Protein Vancomycin Trough Rheumatoid Factor Complement C4 Miscellaneous Test Crossmatch 09/06/16 09/06/16 09/06/16 11:57 17:58 19:02 WBC RBC Hgb Hct MCV MCH MCHC RDW Plt Count Lymph % (Auto) [place] % (Auto) Lymph # [place] # Baso # Seg Neutrophils % Seg Neuts % (Manual) Lymphocytes % (Manual) Monocytes % (Manual) Eosinophils % (Manual) Basophils % (Manual) Nucleated RBC % Seg Neutrophils # Seg Neutrophils # Man Lymphocytes # (Manual) Monocytes # (Manual) Eosinophils # (Manual) Basophils # (Manual) PT INR Fibrinogen dRVVT Confirm Interp Factor V Activity POC ABG pH 7.465 H POC ABG pCO2 32.0 L POC ABG pO2 ABG pO2 ABG HCO3 ABG Base Excess ABG Hemoglobin Oxyhemoglobin Sodium Potassium Chloride Carbon Dioxide BUN Creatinine Glucose POC Glucose 165 H 160 H Lactic Acid Calcium Phosphorus Magnesium Direct Bilirubin AST ALT Alkaline Phosphatase Lactate Dehydrogenase Troponin T C-Reactive Protein Total Protein Albumin Prealbumin Triglycerides Cholesterol LDL Cholesterol Direct HDL Cholesterol Urine pH Urine WBC (Auto) Urine Creatinine Urine Total Protein Fluid Total Protein Vancomycin Trough Rheumatoid Factor Complement C4 Miscellaneous Test Crossmatch 09/06/16 09/07/16 09/07/16 23:45 02:47 02:47 WBC RBC Hgb Hct MCV MCH MCHC RDW Plt Count Lymph % (Auto) [place] % (Auto) Lymph # [place] # Baso # Seg Neutrophils % Seg Neuts % (Manual) Lymphocytes % (Manual) Monocytes % (Manual) Eosinophils % (Manual) Basophils % (Manual) Nucleated RBC % Seg Neutrophils # Seg Neutrophils # Man Lymphocytes # (Manual) Monocytes # (Manual) Eosinophils # (Manual) Basophils # (Manual) PT INR Fibrinogen dRVVT Confirm Interp Factor V Activity POC ABG pH POC ABG pCO2 POC ABG pO2 ABG pO2 ABG HCO3 ABG Base Excess ABG Hemoglobin Oxyhemoglobin Sodium Potassium Chloride Carbon Dioxide BUN Creatinine Glucose POC Glucose 204 H Lactic Acid Calcium Phosphorus Magnesium Direct Bilirubin AST ALT Alkaline Phosphatase Lactate Dehydrogenase Troponin T C-Reactive Protein Total Protein Albumin Prealbumin Triglycerides Cholesterol LDL Cholesterol Direct HDL Cholesterol Urine pH Urine WBC (Auto) 68.0 H Urine Creatinine 106.1 H Urine Total Protein Fluid Total Protein Vancomycin Trough Rheumatoid Factor Complement C4 Miscellaneous Test Crossmatch 09/07/16 09/07/16 09/07/16 04:50 06:19 06:39 WBC RBC Hgb Hct MCV MCH MCHC RDW Plt Count Lymph % (Auto) [place] % (Auto) Lymph # [place] # Baso # Seg Neutrophils % Seg Neuts % (Manual) Lymphocytes % (Manual) Monocytes % (Manual) Eosinophils % (Manual) Basophils % (Manual) Nucleated RBC % Seg Neutrophils # Seg Neutrophils # Man Lymphocytes # (Manual) Monocytes # (Manual) Eosinophils # (Manual) Basophils # (Manual) PT INR Fibrinogen dRVVT Confirm Interp Factor V Activity POC ABG pH 7.457 H POC ABG pCO2 32.1 L POC ABG pO2 76 L ABG pO2 ABG HCO3 ABG Base Excess ABG Hemoglobin Oxyhemoglobin Sodium 132 L Potassium Chloride 94.7 L Carbon Dioxide BUN 53 H Creatinine 2.9 H Glucose 151 H POC Glucose 149 H Lactic Acid Calcium Phosphorus Magnesium Direct Bilirubin AST ALT Alkaline Phosphatase Lactate Dehydrogenase Troponin T C-Reactive Protein Total Protein Albumin Prealbumin Triglycerides Cholesterol LDL Cholesterol Direct HDL Cholesterol Urine pH Urine WBC (Auto) Urine Creatinine Urine Total Protein Fluid Total Protein Vancomycin Trough Rheumatoid Factor Complement C4 Miscellaneous Test Crossmatch 09/07/16 09/07/16 09/07/16 09:20 11:43 11:43 WBC 19.4 H RBC Hgb 8.3 L Hct 26.4 L D MCV 72 L D MCH 22 L MCHC RDW 17.9 H Plt Count Lymph % (Auto) 8.5 L [place] % (Auto) Lymph # [place] # 1.0 H Baso # Seg Neutrophils % 85.8 H Seg Neuts % (Manual) Lymphocytes % (Manual) Monocytes % (Manual) Eosinophils % (Manual) Basophils % (Manual) Nucleated RBC % Seg Neutrophils # 16.6 H Seg Neutrophils # Man Lymphocytes # (Manual) Monocytes # (Manual) Eosinophils # (Manual) Basophils # (Manual) PT INR Fibrinogen dRVVT Confirm Interp Factor V Activity POC ABG pH POC ABG pCO2 POC ABG pO2 ABG pO2 ABG HCO3 ABG Base Excess ABG Hemoglobin Oxyhemoglobin Sodium 134 L Potassium Chloride 97.2 L Carbon Dioxide 20 L BUN 58 H Creatinine 2.9 H Glucose 147 H POC Glucose Lactic Acid Calcium Phosphorus 2.40 L Magnesium 2.40 H Direct Bilirubin AST ALT Alkaline Phosphatase Lactate Dehydrogenase Troponin T C-Reactive Protein Total Protein 5.8 L Albumin 2.2 L Prealbumin Triglycerides Cholesterol LDL Cholesterol Direct HDL Cholesterol Urine pH Urine WBC (Auto) Urine Creatinine Urine Total Protein Fluid Total Protein Vancomycin Trough Rheumatoid Factor Complement C4 58 H Miscellaneous Test Crossmatch 09/07/16 09/07/16 09/07/16 11:50 16:00 17:31 WBC RBC Hgb Hct MCV MCH MCHC RDW Plt Count Lymph % (Auto) [place] % (Auto) Lymph # [place] # Baso # Seg Neutrophils % Seg Neuts % (Manual) Lymphocytes % (Manual) Monocytes % (Manual) Eosinophils % (Manual) Basophils % (Manual) Nucleated RBC % Seg Neutrophils # Seg Neutrophils # Man Lymphocytes # (Manual) Monocytes # (Manual) Eosinophils # (Manual) Basophils # (Manual) PT INR Fibrinogen dRVVT Confirm Interp Factor V Activity POC ABG pH POC ABG pCO2 POC ABG pO2 158 H ABG pO2 ABG HCO3 ABG Base Excess ABG Hemoglobin Oxyhemoglobin Sodium Potassium Chloride Carbon Dioxide BUN Creatinine Glucose POC Glucose 175 H Lactic Acid Calcium Phosphorus Magnesium Direct Bilirubin AST ALT Alkaline Phosphatase Lactate Dehydrogenase Troponin T C-Reactive Protein Total Protein Albumin Prealbumin Triglycerides Cholesterol LDL Cholesterol Direct HDL Cholesterol Urine pH Urine WBC (Auto) Urine Creatinine 66.3 H Urine Total Protein Fluid Total Protein Vancomycin Trough Rheumatoid Factor Complement C4 Miscellaneous Test Crossmatch 09/07/16 09/08/16 09/08/16 23:50 05:46 06:18 WBC 17.8 H RBC 3.58 L Hgb 8.1 L Hct 25.5 L MCV 71 L MCH 23 L MCHC RDW 18.4 H Plt Count Lymph % (Auto) [place] % (Auto) Lymph # [place] # Baso # Seg Neutrophils % Seg Neuts % (Manual) 92.0 H Lymphocytes % (Manual) 6.0 L Monocytes % (Manual) Eosinophils % (Manual) Basophils % (Manual) Nucleated RBC % Seg Neutrophils # Seg Neutrophils # Man 16.4 H Lymphocytes # (Manual) 1.1 L Monocytes # (Manual) Eosinophils # (Manual) Basophils # (Manual) PT INR Fibrinogen dRVVT Confirm Interp Factor V Activity POC ABG pH POC ABG pCO2 34.3 L POC ABG pO2 71 L ABG pO2 ABG HCO3 ABG Base Excess ABG Hemoglobin Oxyhemoglobin Sodium Potassium Chloride Carbon Dioxide BUN Creatinine Glucose POC Glucose 216 H Lactic Acid Calcium Phosphorus Magnesium Direct Bilirubin AST ALT Alkaline Phosphatase Lactate Dehydrogenase Troponin T C-Reactive Protein Total Protein Albumin Prealbumin Triglycerides Cholesterol LDL Cholesterol Direct HDL Cholesterol Urine pH Urine WBC (Auto) Urine Creatinine Urine Total Protein Fluid Total Protein Vancomycin Trough Rheumatoid Factor Complement C4 Miscellaneous Test Crossmatch 09/08/16 09/08/1609/08/17 06:18 06:51 10:55 WBC RBC Hgb Hct MCV MCH MCHC RDW Plt Count Lymph % (Auto) [place] % (Auto) Lymph # [place] # Baso # Seg Neutrophils % Seg Neuts % (Manual) Lymphocytes % (Manual) Monocytes % (Manual) Eosinophils % (Manual) Basophils % (Manual) Nucleated RBC % Seg Neutrophils # Seg Neutrophils # Man Lymphocytes # (Manual) Monocytes # (Manual) Eosinophils # (Manual) Basophils # (Manual) PT INR Fibrinogen dRVVT Confirm Interp Factor V Activity POC ABG pH POC ABG pCO2 POC ABG pO2 ABG pO2 ABG HCO3 ABG Base Excess ABG Hemoglobin Oxyhemoglobin Sodium 133 L Potassium Chloride 96.9 L Carbon Dioxide 20 L BUN 63 H Creatinine 2.7 H Glucose 195 H POC Glucose 204 H 169 H Lactic Acid Calcium Phosphorus Magnesium Direct Bilirubin AST ALT Alkaline Phosphatase Lactate Dehydrogenase Troponin T C-Reactive Protein Total Protein Albumin Prealbumin Triglycerides Cholesterol LDL Cholesterol Direct HDL Cholesterol Urine pH Urine WBC (Auto) Urine Creatinine Urine Total Protein Fluid Total Protein Vancomycin Trough Rheumatoid Factor Complement C4 Miscellaneous Test Crossmatch 09/08/16 09/08/16 09/08/16 11:48 11:48 11:48 WBC RBC Hgb Hct MCV MCH MCHC RDW Plt Count Lymph % (Auto) [place] % (Auto) Lymph # [place] # Baso # Seg Neutrophils % Seg Neuts % (Manual) Lymphocytes % (Manual) Monocytes % (Manual) Eosinophils % (Manual) Basophils % (Manual) Nucleated RBC % Seg Neutrophils # Seg Neutrophils # Man Lymphocytes # (Manual) Monocytes # (Manual) Eosinophils # (Manual) Basophils # (Manual) PT INR Fibrinogen 750 H dRVVT Confirm Interp Factor V Activity POC ABG pH POC ABG pCO2 POC ABG pO2 ABG pO2 ABG HCO3 ABG Base Excess ABG Hemoglobin Oxyhemoglobin Sodium Potassium Chloride Carbon Dioxide BUN Creatinine Glucose POC Glucose Lactic Acid Calcium Phosphorus Magnesium Direct Bilirubin AST ALT Alkaline Phosphatase Lactate Dehydrogenase Troponin T C-Reactive Protein 15.70 H Total Protein Albumin Prealbumin Triglycerides Cholesterol LDL Cholesterol Direct HDL Cholesterol Urine pH Urine WBC (Auto) Urine Creatinine Urine Total Protein Fluid Total Protein Vancomycin Trough Rheumatoid Factor 24 H Complement C4 Miscellaneous Test Crossmatch 09/08/16 09/08/16 09/09/16 15:35 18:25 00:24 WBC RBC Hgb Hct MCV MCH MCHC RDW Plt Count Lymph % (Auto) [place] % (Auto) Lymph # [place] # Baso # Seg Neutrophils % Seg Neuts % (Manual) Lymphocytes % (Manual) Monocytes % (Manual) Eosinophils % (Manual) Basophils % (Manual) Nucleated RBC % Seg Neutrophils # Seg Neutrophils # Man Lymphocytes # (Manual) Monocytes # (Manual) Eosinophils # (Manual) Basophils # (Manual) PT INR Fibrinogen dRVVT Confirm Interp Factor V Activity 182 H POC ABG pH POC ABG pCO2 POC ABG pO2 ABG pO2 ABG HCO3 ABG Base Excess ABG Hemoglobin Oxyhemoglobin Sodium Potassium Chloride Carbon Dioxide BUN Creatinine Glucose POC Glucose 184 H 216 H Lactic Acid Calcium Phosphorus Magnesium Direct Bilirubin AST ALT Alkaline Phosphatase Lactate Dehydrogenase Troponin T C-Reactive Protein Total Protein Albumin Prealbumin Triglycerides Cholesterol LDL Cholesterol Direct HDL Cholesterol Urine pH Urine WBC (Auto) Urine Creatinine Urine Total Protein Fluid Total Protein Vancomycin Trough Rheumatoid Factor Complement C4 Miscellaneous Test Crossmatch 09/09/16 09/09/16 09/09/16 03:00 03:00 04:04 WBC 27.9 H RBC Hgb 8.7 L Hct 28.1 L MCV 72 L MCH 22 L MCHC RDW 18.4 H Plt Count 485 H Lymph % (Auto) [place] % (Auto) Lymph # [place] # Baso # Seg Neutrophils % Seg Neuts % (Manual) 77.0 H Lymphocytes % (Manual) 9.0 L Monocytes % (Manual) Eosinophils % (Manual) Basophils % (Manual) Nucleated RBC % Seg Neutrophils # Seg Neutrophils # Man 21.5 H Lymphocytes # (Manual) Monocytes # (Manual) 2.0 H Eosinophils # (Manual) Basophils # (Manual) PT INR Fibrinogen dRVVT Confirm Interp Factor V Activity POC ABG pH POC ABG pCO2 POC ABG pO2 121 H ABG pO2 ABG HCO3 ABG Base Excess ABG Hemoglobin Oxyhemoglobin Sodium 135 L Potassium Chloride 96.3 L Carbon Dioxide 21 L BUN 83 H Creatinine 3.0 H Glucose 135 H POC Glucose Lactic Acid Calcium Phosphorus Magnesium Direct Bilirubin AST ALT Alkaline Phosphatase Lactate Dehydrogenase Troponin T C-Reactive Protein Total Protein Albumin Prealbumin Triglycerides Cholesterol LDL Cholesterol Direct HDL Cholesterol Urine pH Urine WBC (Auto) Urine Creatinine Urine Total Protein Fluid Total Protein Vancomycin Trough Rheumatoid Factor Complement C4 Miscellaneous Test Crossmatch 09/09/16 09/09/16 09/09/16 05:41 11:55 14:13 WBC RBC Hgb Hct MCV MCH MCHC RDW Plt Count Lymph % (Auto) [place] % (Auto) Lymph # [place] # Baso # Seg Neutrophils % Seg Neuts % (Manual) Lymphocytes % (Manual) Monocytes % (Manual) Eosinophils % (Manual) Basophils % (Manual) Nucleated RBC % Seg Neutrophils # Seg Neutrophils # Man Lymphocytes # (Manual) Monocytes # (Manual) Eosinophils # (Manual) Basophils # (Manual) PT INR Fibrinogen dRVVT Confirm Interp Factor V Activity POC ABG pH POC ABG pCO2 POC ABG pO2 ABG pO2 ABG HCO3 ABG Base Excess ABG Hemoglobin Oxyhemoglobin Sodium Potassium Chloride Carbon Dioxide BUN Creatinine Glucose POC Glucose 155 H 186 H Lactic Acid Calcium Phosphorus Magnesium Direct Bilirubin AST ALT Alkaline Phosphatase Lactate Dehydrogenase Troponin T C-Reactive Protein Total Protein Albumin Prealbumin Triglycerides Cholesterol LDL Cholesterol Direct HDL Cholesterol Urine pH Urine WBC (Auto) 25.0 H Urine Creatinine Urine Total Protein Fluid Total Protein Vancomycin Trough Rheumatoid Factor Complement C4 Miscellaneous Test Crossmatch 09/09/16 09/09/16 09/10/16 17:33 23:13 05:09 WBC RBC Hgb Hct MCV MCH MCHC RDW Plt Count Lymph % (Auto) [place] % (Auto) Lymph # [place] # Baso # Seg Neutrophils % Seg Neuts % (Manual) Lymphocytes % (Manual) Monocytes % (Manual) Eosinophils % (Manual) Basophils % (Manual) Nucleated RBC % Seg Neutrophils # Seg Neutrophils # Man Lymphocytes # (Manual) Monocytes # (Manual) Eosinophils # (Manual) Basophils # (Manual) PT INR Fibrinogen dRVVT Confirm Interp Factor V Activity POC ABG pH POC ABG pCO2 POC ABG pO2 74 L ABG pO2 ABG HCO3 ABG Base Excess ABG Hemoglobin Oxyhemoglobin Sodium Potassium Chloride Carbon Dioxide BUN Creatinine Glucose POC Glucose 211 H 215 H Lactic Acid Calcium Phosphorus Magnesium Direct Bilirubin AST ALT Alkaline Phosphatase Lactate Dehydrogenase Troponin T C-Reactive Protein Total Protein Albumin Prealbumin Triglycerides Cholesterol LDL Cholesterol Direct HDL Cholesterol Urine pH Urine WBC (Auto) Urine Creatinine Urine Total Protein Fluid Total Protein Vancomycin Trough Rheumatoid Factor Complement C4 Miscellaneous Test Crossmatch 09/10/16 09/10/16 09/10/16 05:17 05:17 11:31 WBC 15.8 H RBC 3.25 L Hgb 7.3 L Hct 22.9 L MCV 71 L MCH 23 L MCHC RDW 18.4 H Plt Count Lymph % (Auto) [place] % (Auto) Lymph # [place] # Baso # Seg Neutrophils % Seg Neuts % (Manual) 91.0 H Lymphocytes % (Manual) 4.0 L Monocytes % (Manual) Eosinophils % (Manual) Basophils % (Manual) Nucleated RBC % Seg Neutrophils # Seg Neutrophils # Man 14.4 H Lymphocytes # (Manual) 0.6 L Monocytes # (Manual) Eosinophils # (Manual) Basophils # (Manual) PT INR Fibrinogen dRVVT Confirm Interp Factor V Activity POC ABG pH POC ABG pCO2 POC ABG pO2 ABG pO2 ABG HCO3 ABG Base Excess ABG Hemoglobin Oxyhemoglobin Sodium Potassium Chloride Carbon Dioxide 21 L BUN 93 H Creatinine 2.9 H Glucose 146 H POC Glucose 188 H Lactic Acid Calcium 8.1 L Phosphorus Magnesium Direct Bilirubin AST ALT Alkaline Phosphatase Lactate Dehydrogenase Troponin T C-Reactive Protein Total Protein Albumin Prealbumin Triglycerides Cholesterol LDL Cholesterol Direct HDL Cholesterol Urine pH Urine WBC (Auto) Urine Creatinine Urine Total Protein Fluid Total Protein Vancomycin Trough Rheumatoid Factor Complement C4 Miscellaneous Test Crossmatch 09/10/16 09/10/16 09/10/16 13:17 17:20 23:32 WBC RBC Hgb Hct MCV MCH MCHC RDW Plt Count Lymph % (Auto) [place] % (Auto) Lymph # [place] # Baso # Seg Neutrophils % Seg Neuts % (Manual) Lymphocytes % (Manual) Monocytes % (Manual) Eosinophils % (Manual) Basophils % (Manual) Nucleated RBC % Seg Neutrophils # Seg Neutrophils # Man Lymphocytes # (Manual) Monocytes # (Manual) Eosinophils # (Manual) Basophils # (Manual) PT INR Fibrinogen dRVVT Confirm Interp Factor V Activity POC ABG pH POC ABG pCO2 POC ABG pO2 ABG pO2 ABG HCO3 ABG Base Excess ABG Hemoglobin Oxyhemoglobin Sodium Potassium Chloride Carbon Dioxide BUN Creatinine Glucose POC Glucose 199 H 186 H Lactic Acid Calcium Phosphorus Magnesium Direct Bilirubin AST ALT Alkaline Phosphatase Lactate Dehydrogenase Troponin T C-Reactive Protein Total Protein Albumin Prealbumin Triglycerides Cholesterol LDL Cholesterol Direct HDL Cholesterol Urine pH Urine WBC (Auto) Urine Creatinine Urine Total Protein Fluid Total Protein Vancomycin Trough Rheumatoid Factor Complement C4 Miscellaneous Test Crossmatch See Detail 09/11/16 09/11/16 09/11/16 05:10 05:10 05:17 WBC 28.4 H RBC Hgb 9.2 L Hct 29.3 L D MCV 73 L MCH 23 L MCHC RDW 18.9 H Plt Count 452 H Lymph % (Auto) [place] % (Auto) Lymph # [place] # Baso # Seg Neutrophils % Seg Neuts % (Manual) 89.5 H Lymphocytes % (Manual) 2.0 L Monocytes % (Manual) Eosinophils % (Manual) Basophils % (Manual) Nucleated RBC % Seg Neutrophils # Seg Neutrophils # Man 25.4 H Lymphocytes # (Manual) 0.6 L Monocytes # (Manual) 1.3 H Eosinophils # (Manual) Basophils # (Manual) PT INR Fibrinogen dRVVT Confirm Interp Factor V Activity POC ABG pH POC ABG pCO2 POC ABG pO2 ABG pO2 ABG HCO3 ABG Base Excess ABG Hemoglobin Oxyhemoglobin Sodium 136 L Potassium Chloride Carbon Dioxide 18 L BUN 107 H Creatinine 2.6 H Glucose 187 H POC Glucose 230 H Lactic Acid Calcium 8.3 L Phosphorus Magnesium Direct Bilirubin AST ALT Alkaline Phosphatase Lactate Dehydrogenase Troponin T C-Reactive Protein Total Protein Albumin Prealbumin Triglycerides Cholesterol LDL Cholesterol Direct HDL Cholesterol Urine pH Urine WBC (Auto) Urine Creatinine Urine Total Protein Fluid Total Protein Vancomycin Trough Rheumatoid Factor Complement C4 Miscellaneous Test Crossmatch 09/11/16 09/11/16 09/11/16 05:55 12:02 17:32 WBC RBC Hgb Hct MCV MCH MCHC RDW Plt Count Lymph % (Auto) [place] % (Auto) Lymph # [place] # Baso # Seg Neutrophils % Seg Neuts % (Manual) Lymphocytes % (Manual) Monocytes % (Manual) Eosinophils % (Manual) Basophils % (Manual) Nucleated RBC % Seg Neutrophils # Seg Neutrophils # Man Lymphocytes # (Manual) Monocytes # (Manual) Eosinophils # (Manual) Basophils # (Manual) PT INR Fibrinogen dRVVT Confirm Interp Factor V Activity POC ABG pH POC ABG pCO2 33.8 L POC ABG pO2 ABG pO2 ABG HCO3 ABG Base Excess ABG Hemoglobin Oxyhemoglobin Sodium Potassium Chloride Carbon Dioxide BUN Creatinine Glucose POC Glucose 191 H 239 H Lactic Acid Calcium Phosphorus Magnesium Direct Bilirubin AST ALT Alkaline Phosphatase Lactate Dehydrogenase Troponin T C-Reactive Protein Total Protein Albumin Prealbumin Triglycerides Cholesterol LDL Cholesterol Direct HDL Cholesterol Urine pH Urine WBC (Auto) Urine Creatinine Urine Total Protein Fluid Total Protein Vancomycin Trough Rheumatoid Factor Complement C4 Miscellaneous Test Crossmatch 09/11/16 09/12/16 09/12/16 23:52 05:09 05:32 WBC RBC Hgb Hct MCV MCH MCHC RDW Plt Count Lymph % (Auto) [place] % (Auto) Lymph # [place] # Baso # Seg Neutrophils % Seg Neuts % (Manual) Lymphocytes % (Manual) Monocytes % (Manual) Eosinophils % (Manual) Basophils % (Manual) Nucleated RBC % Seg Neutrophils # Seg Neutrophils # Man Lymphocytes # (Manual) Monocytes # (Manual) Eosinophils # (Manual) Basophils # (Manual) PT INR Fibrinogen dRVVT Confirm Interp Factor V Activity POC ABG pH POC ABG pCO2 34.6 L POC ABG pO2 ABG pO2 ABG HCO3 ABG Base Excess ABG Hemoglobin Oxyhemoglobin Sodium Potassium Chloride Carbon Dioxide BUN Creatinine Glucose POC Glucose 265 H 184 H Lactic Acid Calcium Phosphorus Magnesium Direct Bilirubin AST ALT Alkaline Phosphatase Lactate Dehydrogenase Troponin T C-Reactive Protein Total Protein Albumin Prealbumin Triglycerides Cholesterol LDL Cholesterol Direct HDL Cholesterol Urine pH Urine WBC (Auto) Urine Creatinine Urine Total Protein Fluid Total Protein Vancomycin Trough Rheumatoid Factor Complement C4 Miscellaneous Test Crossmatch 09/12/16 09/12/16 09/12/16 06:45 06:45 07:22 WBC 31.7 H RBC 3.54 L Hgb 8.3 L Hct 25.9 L MCV 73 L MCH 23 L MCHC RDW 18.9 H Plt Count Lymph % (Auto) [place] % (Auto) Lymph # [place] # Baso # Seg Neutrophils % Seg Neuts % (Manual) 88.5 H Lymphocytes % (Manual) 4.5 L Monocytes % (Manual) Eosinophils % (Manual) Basophils % (Manual) Nucleated RBC % Seg Neutrophils # Seg Neutrophils # Man 28.1 H Lymphocytes # (Manual) Monocytes # (Manual) 1.0 H Eosinophils # (Manual) Basophils # (Manual) PT INR Fibrinogen dRVVT Confirm Interp Factor V Activity POC ABG pH POC ABG pCO2 POC ABG pO2 ABG pO2 ABG HCO3 ABG Base Excess ABG Hemoglobin Oxyhemoglobin Sodium Potassium Chloride Carbon Dioxide 20 L BUN 115 H Creatinine 2.7 H Glucose 165 H POC Glucose Lactic Acid Calcium 8.0 L Phosphorus Magnesium Direct Bilirubin AST ALT Alkaline Phosphatase Lactate Dehydrogenase Troponin T C-Reactive Protein Total Protein Albumin Prealbumin Triglycerides 217 H Cholesterol LDL Cholesterol Direct HDL Cholesterol Urine pH Urine WBC (Auto) Urine Creatinine Urine Total Protein Fluid Total Protein Vancomycin Trough Rheumatoid Factor Complement C4 Miscellaneous Test Crossmatch 09/12/16 09/12/16 09/12/16 07:22 09:59 12:21 WBC RBC Hgb Hct MCV MCH MCHC RDW Plt Count Lymph % (Auto) [place] % (Auto) Lymph # [place] # Baso # Seg Neutrophils % Seg Neuts % (Manual) Lymphocytes % (Manual) Monocytes % (Manual) Eosinophils % (Manual) Basophils % (Manual) Nucleated RBC % Seg Neutrophils # Seg Neutrophils # Man Lymphocytes # (Manual) Monocytes # (Manual) Eosinophils # (Manual) Basophils # (Manual) PT INR Fibrinogen dRVVT Confirm Interp Positive H Factor V Activity POC ABG pH POC ABG pCO2 POC ABG pO2 ABG pO2 ABG HCO3 ABG Base Excess ABG Hemoglobin Oxyhemoglobin Sodium Potassium Chloride Carbon Dioxide BUN Creatinine Glucose POC Glucose 224 H Lactic Acid Calcium Phosphorus Magnesium Direct Bilirubin AST ALT Alkaline Phosphatase Lactate Dehydrogenase Troponin T C-Reactive Protein 1.70 H Total Protein Albumin Prealbumin Triglycerides Cholesterol LDL Cholesterol Direct HDL Cholesterol Urine pH Urine WBC (Auto) Urine Creatinine Urine Total Protein Fluid Total Protein Vancomycin Trough Rheumatoid Factor Complement C4 Miscellaneous Test Crossmatch 09/12/16 09/12/16 09/13/16 16:51 23:28 04:00 WBC 45.0 H* RBC Hgb 9.4 L Hct MCV 75 L MCH 23 L MCHC RDW 19.0 H Plt Count 470 H Lymph % (Auto) [place] % (Auto) Lymph # [place] # Baso # Seg Neutrophils % Seg Neuts % (Manual) 89.0 H Lymphocytes % (Manual) 5.0 L Monocytes % (Manual) Eosinophils % (Manual) Basophils % (Manual) Nucleated RBC % Seg Neutrophils # Seg Neutrophils # Man 40.1 H Lymphocytes # (Manual) Monocytes # (Manual) Eosinophils # (Manual) Basophils # (Manual) PT INR Fibrinogen dRVVT Confirm Interp Factor V Activity POC ABG pH POC ABG pCO2 POC ABG pO2 ABG pO2 ABG HCO3 ABG Base Excess ABG Hemoglobin Oxyhemoglobin Sodium Potassium Chloride Carbon Dioxide BUN Creatinine Glucose POC Glucose 169 H 150 H Lactic Acid Calcium Phosphorus Magnesium Direct Bilirubin AST ALT Alkaline Phosphatase Lactate Dehydrogenase Troponin T C-Reactive Protein Total Protein Albumin Prealbumin Triglycerides Cholesterol LDL Cholesterol Direct HDL Cholesterol Urine pH Urine WBC (Auto) Urine Creatinine Urine Total Protein Fluid Total Protein Vancomycin Trough Rheumatoid Factor Complement C4 Miscellaneous Test Crossmatch 09/13/16 09/13/16 09/13/16 04:00 11:26 17:31 WBC RBC Hgb Hct MCV MCH MCHC RDW Plt Count Lymph % (Auto) [place] % (Auto) Lymph # [place] # Baso # Seg Neutrophils % Seg Neuts % (Manual) Lymphocytes % (Manual) Monocytes % (Manual) Eosinophils % (Manual) Basophils % (Manual) Nucleated RBC % Seg Neutrophils # Seg Neutrophils # Man Lymphocytes # (Manual) Monocytes # (Manual) Eosinophils # (Manual) Basophils # (Manual) PT INR Fibrinogen dRVVT Confirm Interp Factor V Activity POC ABG pH POC ABG pCO2 POC ABG pO2 ABG pO2 ABG HCO3 ABG Base Excess ABG Hemoglobin Oxyhemoglobin Sodium Potassium Chloride Carbon Dioxide 20 L BUN 116 H Creatinine 3.0 H Glucose 172 H POC Glucose 140 H 183 H Lactic Acid Calcium Phosphorus Magnesium Direct Bilirubin AST ALT Alkaline Phosphatase Lactate Dehydrogenase Troponin T C-Reactive Protein Total Protein 6.2 L Albumin 2.9 L Prealbumin Triglycerides Cholesterol LDL Cholesterol Direct HDL Cholesterol Urine pH Urine WBC (Auto) Urine Creatinine Urine Total Protein Fluid Total Protein Vancomycin Trough Rheumatoid Factor Complement C4 Miscellaneous Test Crossmatch 09/13/16 09/14/16 09/14/16 23:23 04:06 04:07 WBC 29.4 H RBC Hgb 8.9 L Hct 27.3 L MCV 75 L MCH 24 L MCHC RDW 19.1 H Plt Count Lymph % (Auto) [place] % (Auto) Lymph # [place] # Baso # Seg Neutrophils % Seg Neuts % (Manual) 84.0 H Lymphocytes % (Manual) 6.0 L Monocytes % (Manual) 9.0 H Eosinophils % (Manual) Basophils % (Manual) Nucleated RBC % Seg Neutrophils # Seg Neutrophils # Man 24.7 H Lymphocytes # (Manual) Monocytes # (Manual) 2.6 H Eosinophils # (Manual) Basophils # (Manual) PT INR Fibrinogen dRVVT Confirm Interp Factor V Activity POC ABG pH 7.342 L POC ABG pCO2 POC ABG pO2 116 H ABG pO2 ABG HCO3 ABG Base Excess ABG Hemoglobin Oxyhemoglobin Sodium Potassium Chloride Carbon Dioxide BUN Creatinine Glucose POC Glucose 154 H Lactic Acid Calcium Phosphorus Magnesium Direct Bilirubin AST ALT Alkaline Phosphatase Lactate Dehydrogenase Troponin T C-Reactive Protein Total Protein Albumin Prealbumin Triglycerides Cholesterol LDL Cholesterol Direct HDL Cholesterol Urine pH Urine WBC (Auto) Urine Creatinine Urine Total Protein Fluid Total Protein Vancomycin Trough Rheumatoid Factor Complement C4 Miscellaneous Test Crossmatch 09/14/16 09/14/16 09/14/16 04:07 05:29 12:19 WBC RBC Hgb Hct MCV MCH MCHC RDW Plt Count Lymph % (Auto) [place] % (Auto) Lymph # [place] # Baso # Seg Neutrophils % Seg Neuts % (Manual) Lymphocytes % (Manual) Monocytes % (Manual) Eosinophils % (Manual) Basophils % (Manual) Nucleated RBC % Seg Neutrophils # Seg Neutrophils # Man Lymphocytes # (Manual) Monocytes # (Manual) Eosinophils # (Manual) Basophils # (Manual) PT INR Fibrinogen dRVVT Confirm Interp Factor V Activity POC ABG pH POC ABG pCO2 POC ABG pO2 ABG pO2 ABG HCO3 ABG Base Excess ABG Hemoglobin Oxyhemoglobin Sodium 136 L Potassium Chloride Carbon Dioxide 18 L BUN 121 H Creatinine 2.8 H Glucose 214 H POC Glucose 239 H 181 H Lactic Acid Calcium Phosphorus Magnesium Direct Bilirubin AST ALT Alkaline Phosphatase Lactate Dehydrogenase Troponin T C-Reactive Protein Total Protein Albumin Prealbumin Triglycerides Cholesterol LDL Cholesterol Direct HDL Cholesterol Urine pH Urine WBC (Auto) Urine Creatinine Urine Total Protein Fluid Total Protein Vancomycin Trough Rheumatoid Factor Complement C4 Miscellaneous Test Crossmatch 09/14/16 09/14/16 09/15/16 18:12 23:37 05:00 WBC 26.1 H RBC 3.05 L Hgb 7.2 L Hct 22.9 L MCV 75 L MCH 24 L MCHC RDW 19.0 H Plt Count Lymph % (Auto) [place] % (Auto) Lymph # [place] # Baso # Seg Neutrophils % Seg Neuts % (Manual) Lymphocytes % (Manual) Monocytes % (Manual) Eosinophils % (Manual) Basophils % (Manual) Nucleated RBC % Seg Neutrophils # Seg Neutrophils # Man Lymphocytes # (Manual) Monocytes # (Manual) Eosinophils # (Manual) Basophils # (Manual) PT INR Fibrinogen dRVVT Confirm Interp Factor V Activity POC ABG pH POC ABG pCO2 POC ABG pO2 ABG pO2 ABG HCO3 ABG Base Excess ABG Hemoglobin Oxyhemoglobin Sodium Potassium Chloride Carbon Dioxide BUN Creatinine Glucose POC Glucose 266 H 154 H Lactic Acid Calcium Phosphorus Magnesium Direct Bilirubin AST ALT Alkaline Phosphatase Lactate Dehydrogenase Troponin T C-Reactive Protein Total Protein Albumin Prealbumin Triglycerides Cholesterol LDL Cholesterol Direct HDL Cholesterol Urine pH Urine WBC (Auto) Urine Creatinine Urine Total Protein Fluid Total Protein Vancomycin Trough Rheumatoid Factor Complement C4 Miscellaneous Test Crossmatch 09/15/16 09/15/16 09/15/16 05:00 05:17 12:45 WBC RBC Hgb Hct MCV MCH MCHC RDW Plt Count Lymph % (Auto) [place] % (Auto) Lymph # [place] # Baso # Seg Neutrophils % Seg Neuts % (Manual) Lymphocytes % (Manual) Monocytes % (Manual) Eosinophils % (Manual) Basophils % (Manual) Nucleated RBC % Seg Neutrophils # Seg Neutrophils # Man Lymphocytes # (Manual) Monocytes # (Manual) Eosinophils # (Manual) Basophils # (Manual) PT INR Fibrinogen dRVVT Confirm Interp Factor V Activity POC ABG pH POC ABG pCO2 POC ABG pO2 ABG pO2 ABG HCO3 ABG Base Excess ABG Hemoglobin Oxyhemoglobin Sodium Potassium 5.2 H Chloride Carbon Dioxide 18 L BUN 139 H Creatinine 3.7 H Glucose 227 H POC Glucose 226 H 244 H Lactic Acid Calcium 8.3 L Phosphorus Magnesium Direct Bilirubin AST ALT Alkaline Phosphatase Lactate Dehydrogenase Troponin T C-Reactive Protein Total Protein Albumin Prealbumin Triglycerides Cholesterol LDL Cholesterol Direct HDL Cholesterol Urine pH Urine WBC (Auto) Urine Creatinine Urine Total Protein Fluid Total Protein Vancomycin Trough Rheumatoid Factor Complement C4 Miscellaneous Test Crossmatch 09/15/16 09/15/16 09/15/16 14:32 17:33 23:35 WBC RBC Hgb Hct MCV MCH MCHC RDW Plt Count Lymph % (Auto) [place] % (Auto) Lymph # [place] # Baso # Seg Neutrophils % Seg Neuts % (Manual) Lymphocytes % (Manual) Monocytes % (Manual) Eosinophils % (Manual) Basophils % (Manual) Nucleated RBC % Seg Neutrophils # Seg Neutrophils # Man Lymphocytes # (Manual) Monocytes # (Manual) Eosinophils # (Manual) Basophils # (Manual) PT INR Fibrinogen dRVVT Confirm Interp Factor V Activity POC ABG pH POC ABG pCO2 27.7 L POC ABG pO2 120 H ABG pO2 ABG HCO3 ABG Base Excess ABG Hemoglobin Oxyhemoglobin Sodium Potassium Chloride Carbon Dioxide BUN Creatinine Glucose POC Glucose 232 H 167 H Lactic Acid Calcium Phosphorus Magnesium Direct Bilirubin AST ALT Alkaline Phosphatase Lactate Dehydrogenase Troponin T C-Reactive Protein Total Protein Albumin Prealbumin Triglycerides Cholesterol LDL Cholesterol Direct HDL Cholesterol Urine pH Urine WBC (Auto) Urine Creatinine Urine Total Protein Fluid Total Protein Vancomycin Trough Rheumatoid Factor Complement C4 Miscellaneous Test Crossmatch 09/16/16 09/16/16 09/16/16 03:58 10:27 10:27 WBC 19.0 H RBC 2.77 L Hgb 6.5 L Hct 20.9 L MCV 76 L MCH 23 L MCHC RDW 19.3 H Plt Count Lymph % (Auto) 11.0 L [place] % (Auto) Lymph # [place] # 1.1 H Baso # Seg Neutrophils % 82.5 H Seg Neuts % (Manual) Lymphocytes % (Manual) Monocytes % (Manual) Eosinophils % (Manual) Basophils % (Manual) Nucleated RBC % Seg Neutrophils # 15.7 H Seg Neutrophils # Man Lymphocytes # (Manual) Monocytes # (Manual) Eosinophils # (Manual) Basophils # (Manual) PT INR Fibrinogen dRVVT Confirm Interp Factor V Activity POC ABG pH POC ABG pCO2 POC ABG pO2 ABG pO2 ABG HCO3 ABG Base Excess ABG Hemoglobin Oxyhemoglobin Sodium Potassium Chloride 109.3 H Carbon Dioxide 18 L BUN 139 H Creatinine 4.1 H Glucose 144 H POC Glucose 146 H Lactic Acid Calcium 8.1 L Phosphorus Magnesium Direct Bilirubin AST ALT Alkaline Phosphatase Lactate Dehydrogenase Troponin T C-Reactive Protein Total Protein Albumin Prealbumin Triglycerides Cholesterol LDL Cholesterol Direct HDL Cholesterol Urine pH Urine WBC (Auto) Urine Creatinine Urine Total Protein Fluid Total Protein Vancomycin Trough Rheumatoid Factor Complement C4 Miscellaneous Test Crossmatch 09/16/16 09/16/16 09/16/16 12:04 12:10 13:55 WBC RBC Hgb Hct MCV MCH MCHC RDW Plt Count Lymph % (Auto) [place] % (Auto) Lymph # [place] # Baso # Seg Neutrophils % Seg Neuts % (Manual) Lymphocytes % (Manual) Monocytes % (Manual) Eosinophils % (Manual) Basophils % (Manual) Nucleated RBC % Seg Neutrophils # Seg Neutrophils # Man Lymphocytes # (Manual) Monocytes # (Manual) Eosinophils # (Manual) Basophils # (Manual) PT INR Fibrinogen dRVVT Confirm Interp Factor V Activity POC ABG pH POC ABG pCO2 32.9 L POC ABG pO2 ABG pO2 ABG HCO3 ABG Base Excess ABG Hemoglobin Oxyhemoglobin Sodium Potassium Chloride Carbon Dioxide BUN Creatinine Glucose POC Glucose 185 H Lactic Acid Calcium Phosphorus Magnesium Direct Bilirubin AST ALT Alkaline Phosphatase Lactate Dehydrogenase Troponin T C-Reactive Protein Total Protein Albumin Prealbumin Triglycerides Cholesterol LDL Cholesterol Direct HDL Cholesterol Urine pH Urine WBC (Auto) Urine Creatinine Urine Total Protein Fluid Total Protein Vancomycin Trough Rheumatoid Factor Complement C4 Miscellaneous Test Crossmatch See Detail 09/16/16 09/16/16 09/16/16 17:55 19:19 23:48 WBC RBC Hgb Hct MCV MCH MCHC RDW Plt Count Lymph % (Auto) [place] % (Auto) Lymph # [place] # Baso # Seg Neutrophils % Seg Neuts % (Manual) Lymphocytes % (Manual) Monocytes % (Manual) Eosinophils % (Manual) Basophils % (Manual) Nucleated RBC % Seg Neutrophils # Seg Neutrophils # Man Lymphocytes # (Manual) Monocytes # (Manual) Eosinophils # (Manual) Basophils # (Manual) PT INR Fibrinogen dRVVT Confirm Interp Factor V Activity POC ABG pH POC ABG pCO2 POC ABG pO2 ABG pO2 ABG HCO3 ABG Base Excess ABG Hemoglobin Oxyhemoglobin Sodium Potassium Chloride Carbon Dioxide BUN Creatinine Glucose POC Glucose 222 H 107 H Lactic Acid Calcium Phosphorus Magnesium Direct Bilirubin AST ALT Alkaline Phosphatase Lactate Dehydrogenase Troponin T C-Reactive Protein Total Protein Albumin Prealbumin Triglycerides Cholesterol LDL Cholesterol Direct HDL Cholesterol Urine pH Urine WBC (Auto) Urine Creatinine 47.4 H Urine Total Protein 16 H Fluid Total Protein Vancomycin Trough Rheumatoid Factor Complement C4 Miscellaneous Test Crossmatch 09/17/16 09/17/16 09/17/16 03:45 03:45 04:55 WBC 19.6 H RBC 3.41 L Hgb 8.5 L Hct 26.7 L MCV 78 L MCH 25 L MCHC RDW 19.9 H Plt Count Lymph % (Auto) 9.3 L [place] % (Auto) Lymph # [place] # 1.2 H Baso # Seg Neutrophils % 83.9 H Seg Neuts % (Manual) Lymphocytes % (Manual) Monocytes % (Manual) Eosinophils % (Manual) Basophils % (Manual) Nucleated RBC % Seg Neutrophils # 16.4 H Seg Neutrophils # Man Lymphocytes # (Manual) Monocytes # (Manual) Eosinophils # (Manual) Basophils # (Manual) PT INR Fibrinogen dRVVT Confirm Interp Factor V Activity POC ABG pH POC ABG pCO2 POC ABG pO2 ABG pO2 ABG HCO3 ABG Base Excess ABG Hemoglobin Oxyhemoglobin Sodium 146 H Potassium 5.1 H Chloride 110.9 H Carbon Dioxide 16 L BUN 146 H Creatinine 4.0 H Glucose 108 H POC Glucose 133 H Lactic Acid Calcium Phosphorus Magnesium 3.00 H Direct Bilirubin AST ALT Alkaline Phosphatase Lactate Dehydrogenase Troponin T C-Reactive Protein Total Protein Albumin Prealbumin Triglycerides Cholesterol LDL Cholesterol Direct HDL Cholesterol Urine pH Urine WBC (Auto) Urine Creatinine Urine Total Protein Fluid Total Protein Vancomycin Trough Rheumatoid Factor Complement C4 Miscellaneous Test Crossmatch 09/17/16 09/17/16 09/17/16 11:15 17:33 23:47 WBC RBC Hgb Hct MCV MCH MCHC RDW Plt Count Lymph % (Auto) [place] % (Auto) Lymph # [place] # Baso # Seg Neutrophils % Seg Neuts % (Manual) Lymphocytes % (Manual) Monocytes % (Manual) Eosinophils % (Manual) Basophils % (Manual) Nucleated RBC % Seg Neutrophils # Seg Neutrophils # Man Lymphocytes # (Manual) Monocytes # (Manual) Eosinophils # (Manual) Basophils # (Manual) PT INR Fibrinogen dRVVT Confirm Interp Factor V Activity POC ABG pH POC ABG pCO2 POC ABG pO2 ABG pO2 ABG HCO3 ABG Base Excess ABG Hemoglobin Oxyhemoglobin Sodium Potassium Chloride Carbon Dioxide BUN Creatinine Glucose POC Glucose 176 H 246 H 148 H Lactic Acid Calcium Phosphorus Magnesium Direct Bilirubin AST ALT Alkaline Phosphatase Lactate Dehydrogenase Troponin T C-Reactive Protein Total Protein Albumin Prealbumin Triglycerides Cholesterol LDL Cholesterol Direct HDL Cholesterol Urine pH Urine WBC (Auto) Urine Creatinine Urine Total Protein Fluid Total Protein Vancomycin Trough Rheumatoid Factor Complement C4 Miscellaneous Test Crossmatch 09/18/16 09/18/16 09/18/16 05:33 08:31 08:31 WBC 18.0 H RBC 3.17 L Hgb 9.0 L Hct 25.7 L MCV MCH MCHC 35 H RDW 20.4 H Plt Count Lymph % (Auto) [place] % (Auto) Lymph # [place] # Baso # Seg Neutrophils % Seg Neuts % (Manual) Lymphocytes % (Manual) Monocytes % (Manual) Eosinophils % (Manual) Basophils % (Manual) Nucleated RBC % Seg Neutrophils # Seg Neutrophils # Man Lymphocytes # (Manual) Monocytes # (Manual) Eosinophils # (Manual) Basophils # (Manual) PT INR Fibrinogen dRVVT Confirm Interp Factor V Activity POC ABG pH POC ABG pCO2 POC ABG pO2 ABG pO2 ABG HCO3 ABG Base Excess ABG Hemoglobin Oxyhemoglobin Sodium Potassium Chloride Carbon Dioxide 15 L BUN 124 H Creatinine 3.8 H Glucose POC Glucose 120 H Lactic Acid Calcium 8.1 L Phosphorus Magnesium Direct Bilirubin AST ALT Alkaline Phosphatase Lactate Dehydrogenase Troponin T C-Reactive Protein Total Protein Albumin Prealbumin Triglycerides Cholesterol LDL Cholesterol Direct HDL Cholesterol Urine pH Urine WBC (Auto) Urine Creatinine Urine Total Protein Fluid Total Protein Vancomycin Trough Rheumatoid Factor Complement C4 Miscellaneous Test Crossmatch 09/18/16 09/18/16 09/18/16 12:03 15:34 17:50 WBC RBC Hgb Hct MCV MCH MCHC RDW Plt Count Lymph % (Auto) [place] % (Auto) Lymph # [place] # Baso # Seg Neutrophils % Seg Neuts % (Manual) Lymphocytes % (Manual) Monocytes % (Manual) Eosinophils % (Manual) Basophils % (Manual) Nucleated RBC % Seg Neutrophils # Seg Neutrophils # Man Lymphocytes # (Manual) Monocytes # (Manual) Eosinophils # (Manual) Basophils # (Manual) PT INR Fibrinogen dRVVT Confirm Interp Factor V Activity POC ABG pH POC ABG pCO2 25.7 L POC ABG pO2 66 L ABG pO2 ABG HCO3 ABG Base Excess ABG Hemoglobin Oxyhemoglobin Sodium Potassium Chloride Carbon Dioxide BUN Creatinine Glucose POC Glucose 156 H 220 H Lactic Acid Calcium Phosphorus Magnesium Direct Bilirubin AST ALT Alkaline Phosphatase Lactate Dehydrogenase Troponin T C-Reactive Protein Total Protein Albumin Prealbumin Triglycerides Cholesterol LDL Cholesterol Direct HDL Cholesterol Urine pH Urine WBC (Auto) Urine Creatinine Urine Total Protein Fluid Total Protein Vancomycin Trough Rheumatoid Factor Complement C4 Miscellaneous Test Crossmatch 09/19/16 09/19/16 09/19/16 06:21 09:50 09:50 WBC 17.1 H RBC 3.49 L Hgb 9.0 L Hct 28.1 L MCV MCH 26 L MCHC RDW 20.8 H Plt Count Lymph % (Auto) 11.5 L [place] % (Auto) 7.5 H Lymph # [place] # 1.3 H Baso # Seg Neutrophils % 79.8 H Seg Neuts % (Manual) Lymphocytes % (Manual) Monocytes % (Manual) Eosinophils % (Manual) Basophils % (Manual) Nucleated RBC % Seg Neutrophils # 13.7 H Seg Neutrophils # Man Lymphocytes # (Manual) Monocytes # (Manual) Eosinophils # (Manual) Basophils # (Manual) PT INR Fibrinogen dRVVT Confirm Interp Factor V Activity POC ABG pH POC ABG pCO2 POC ABG pO2 ABG pO2 ABG HCO3 ABG Base Excess ABG Hemoglobin Oxyhemoglobin Sodium Potassium Chloride 108.6 H Carbon Dioxide 15 L BUN 125 H Creatinine 4.1 H Glucose 124 H POC Glucose 119 H Lactic Acid Calcium Phosphorus Magnesium Direct Bilirubin AST ALT Alkaline Phosphatase Lactate Dehydrogenase Troponin T C-Reactive Protein Total Protein Albumin Prealbumin Triglycerides Cholesterol LDL Cholesterol Direct HDL Cholesterol Urine pH Urine WBC (Auto) Urine Creatinine Urine Total Protein Fluid Total Protein Vancomycin Trough Rheumatoid Factor Complement C4 Miscellaneous Test Crossmatch 09/19/16 09/19/16 09/19/16 11:25 17:53 23:36 WBC RBC Hgb Hct MCV MCH MCHC RDW Plt Count Lymph % (Auto) [place] % (Auto) Lymph # [place] # Baso # Seg Neutrophils % Seg Neuts % (Manual) Lymphocytes % (Manual) Monocytes % (Manual) Eosinophils % (Manual) Basophils % (Manual) Nucleated RBC % Seg Neutrophils # Seg Neutrophils # Man Lymphocytes # (Manual) Monocytes # (Manual) Eosinophils # (Manual) Basophils # (Manual) PT INR Fibrinogen dRVVT Confirm Interp Factor V Activity POC ABG pH POC ABG pCO2 POC ABG pO2 ABG pO2 ABG HCO3 ABG Base Excess ABG Hemoglobin Oxyhemoglobin Sodium Potassium Chloride Carbon Dioxide BUN Creatinine Glucose POC Glucose 160 H 245 H 121 H Lactic Acid Calcium Phosphorus Magnesium Direct Bilirubin AST ALT Alkaline Phosphatase Lactate Dehydrogenase Troponin T C-Reactive Protein Total Protein Albumin Prealbumin Triglycerides Cholesterol LDL Cholesterol Direct HDL Cholesterol Urine pH Urine WBC (Auto) Urine Creatinine Urine Total Protein Fluid Total Protein Vancomycin Trough Rheumatoid Factor Complement C4 Miscellaneous Test Crossmatch 09/20/16 09/20/16 09/20/16 04:10 04:10 04:10 WBC 17.0 H RBC 3.21 L Hgb 8.2 L Hct 25.5 L MCV MCH 26 L MCHC RDW 20.9 H Plt Count Lymph % (Auto) [place] % (Auto) Lymph # [place] # Baso # Seg Neutrophils % Seg Neuts % (Manual) Lymphocytes % (Manual) Monocytes % (Manual) Eosinophils % (Manual) Basophils % (Manual) Nucleated RBC % Seg Neutrophils # Seg Neutrophils # Man Lymphocytes # (Manual) Monocytes # (Manual) Eosinophils # (Manual) Basophils # (Manual) PT INR Fibrinogen dRVVT Confirm Interp Factor V Activity POC ABG pH POC ABG pCO2 POC ABG pO2 ABG pO2 ABG HCO3 ABG Base Excess ABG Hemoglobin Oxyhemoglobin Sodium Potassium Chloride 111.0 H Carbon Dioxide 16 L BUN 129 H Creatinine 3.7 H Glucose 115 H POC Glucose Lactic Acid Calcium 8.2 L Phosphorus Magnesium Direct Bilirubin AST ALT Alkaline Phosphatase Lactate Dehydrogenase Troponin T C-Reactive Protein Total Protein Albumin Prealbumin Triglycerides 243 H Cholesterol LDL Cholesterol Direct HDL Cholesterol Urine pH Urine WBC (Auto) Urine Creatinine Urine Total Protein Fluid Total Protein Vancomycin Trough Rheumatoid Factor Complement C4 Miscellaneous Test Crossmatch 09/20/16 09/20/16 09/20/16 05:40 11:52 16:50 WBC RBC Hgb Hct MCV MCH MCHC RDW Plt Count Lymph % (Auto) [place] % (Auto) Lymph # [place] # Baso # Seg Neutrophils % Seg Neuts % (Manual) Lymphocytes % (Manual) Monocytes % (Manual) Eosinophils % (Manual) Basophils % (Manual) Nucleated RBC % Seg Neutrophils # Seg Neutrophils # Man Lymphocytes # (Manual) Monocytes # (Manual) Eosinophils # (Manual) Basophils # (Manual) PT INR Fibrinogen dRVVT Confirm Interp Factor V Activity POC ABG pH POC ABG pCO2 POC ABG pO2 ABG pO2 ABG HCO3 ABG Base Excess ABG Hemoglobin Oxyhemoglobin Sodium Potassium Chloride Carbon Dioxide BUN Creatinine Glucose POC Glucose 131 H 183 H 236 H Lactic Acid Calcium Phosphorus Magnesium Direct Bilirubin AST ALT Alkaline Phosphatase Lactate Dehydrogenase Troponin T C-Reactive Protein Total Protein Albumin Prealbumin Triglycerides Cholesterol LDL Cholesterol Direct HDL Cholesterol Urine pH Urine WBC (Auto) Urine Creatinine Urine Total Protein Fluid Total Protein Vancomycin Trough Rheumatoid Factor Complement C4 Miscellaneous Test Crossmatch 09/20/16 09/21/16 09/21/16 23:51 03:30 04:44 WBC RBC Hgb Hct MCV MCH MCHC RDW Plt Count Lymph % (Auto) [place] % (Auto) Lymph # [place] # Baso # Seg Neutrophils % Seg Neuts % (Manual) Lymphocytes % (Manual) Monocytes % (Manual) Eosinophils % (Manual) Basophils % (Manual) Nucleated RBC % Seg Neutrophils # Seg Neutrophils # Man Lymphocytes # (Manual) Monocytes # (Manual) Eosinophils # (Manual) Basophils # (Manual) PT INR Fibrinogen dRVVT Confirm Interp Factor V Activity POC ABG pH POC ABG pCO2 POC ABG pO2 ABG pO2 ABG HCO3 ABG Base Excess ABG Hemoglobin Oxyhemoglobin Sodium Potassium Chloride Carbon Dioxide BUN Creatinine Glucose POC Glucose 114 H 141 H Lactic Acid Calcium Phosphorus Magnesium 2.70 H Direct Bilirubin AST ALT Alkaline Phosphatase Lactate Dehydrogenase Troponin T C-Reactive Protein Total Protein Albumin Prealbumin Triglycerides Cholesterol LDL Cholesterol Direct HDL Cholesterol Urine pH Urine WBC (Auto) Urine Creatinine Urine Total Protein Fluid Total Protein Vancomycin Trough Rheumatoid Factor Complement C4 Miscellaneous Test Crossmatch 09/21/16 09/21/16 09/21/16 07:45 07:45 10:01 WBC 13.8 H RBC 2.94 L Hgb 7.5 L Hct 23.5 L MCV MCH 26 L MCHC RDW 21.2 H Plt Count Lymph % (Auto) 6.9 L [place] % (Auto) 9.4 H Lymph # 0.9 L [place] # 1.3 H Baso # Seg Neutrophils % 83.2 H Seg Neuts % (Manual) Lymphocytes % (Manual) Monocytes % (Manual) Eosinophils % (Manual) Basophils % (Manual) Nucleated RBC % Seg Neutrophils # 11.5 H Seg Neutrophils # Man Lymphocytes # (Manual) Monocytes # (Manual) Eosinophils # (Manual) Basophils # (Manual) PT INR Fibrinogen dRVVT Confirm Interp Factor V Activity POC ABG pH 7.308 L POC ABG pCO2 31.9 L POC ABG pO2 148 H ABG pO2 ABG HCO3 ABG Base Excess ABG Hemoglobin Oxyhemoglobin Sodium 147 H Potassium Chloride 114.2 H Carbon Dioxide 15 L BUN 120 H Creatinine 3.9 H Glucose 156 H POC Glucose Lactic Acid Calcium 8.2 L Phosphorus Magnesium Direct Bilirubin AST ALT Alkaline Phosphatase Lactate Dehydrogenase Troponin T C-Reactive Protein Total Protein Albumin Prealbumin Triglycerides Cholesterol LDL Cholesterol Direct HDL Cholesterol Urine pH Urine WBC (Auto) Urine Creatinine Urine Total Protein Fluid Total Protein Vancomycin Trough Rheumatoid Factor Complement C4 Miscellaneous Test Crossmatch 09/21/16 09/21/16 09/21/16 12:00 12:03 13:00 WBC RBC Hgb Hct MCV MCH MCHC RDW Plt Count Lymph % (Auto) [place] % (Auto) Lymph # [place] # Baso # Seg Neutrophils % Seg Neuts % (Manual) Lymphocytes % (Manual) Monocytes % (Manual) Eosinophils % (Manual) Basophils % (Manual) Nucleated RBC % Seg Neutrophils # Seg Neutrophils # Man Lymphocytes # (Manual) Monocytes # (Manual) Eosinophils # (Manual) Basophils # (Manual) PT INR Fibrinogen dRVVT Confirm Interp Factor V Activity POC ABG pH POC ABG pCO2 POC ABG pO2 ABG pO2 ABG HCO3 ABG Base Excess ABG Hemoglobin Oxyhemoglobin Sodium Potassium Chloride Carbon Dioxide BUN Creatinine Glucose POC Glucose 163 H Lactic Acid Calcium Phosphorus Magnesium Direct Bilirubin AST ALT Alkaline Phosphatase Lactate Dehydrogenase Troponin T C-Reactive Protein Total Protein Albumin Prealbumin Triglycerides Cholesterol LDL Cholesterol Direct HDL Cholesterol Urine pH Urine WBC (Auto) Urine Creatinine 54.8 H Urine Total Protein Fluid Total Protein Vancomycin Trough 2.3 L Rheumatoid Factor Complement C4 Miscellaneous Test Crossmatch 09/21/16 09/21/16 09/22/16 16:51 23:17 06:27 WBC RBC Hgb Hct MCV MCH MCHC RDW Plt Count Lymph % (Auto) [place] % (Auto) Lymph # [place] # Baso # Seg Neutrophils % Seg Neuts % (Manual) Lymphocytes % (Manual) Monocytes % (Manual) Eosinophils % (Manual) Basophils % (Manual) Nucleated RBC % Seg Neutrophils # Seg Neutrophils # Man Lymphocytes # (Manual) Monocytes # (Manual) Eosinophils # (Manual) Basophils # (Manual) PT INR Fibrinogen dRVVT Confirm Interp Factor V Activity POC ABG pH POC ABG pCO2 POC ABG pO2 ABG pO2 ABG HCO3 ABG Base Excess ABG Hemoglobin Oxyhemoglobin Sodium Potassium Chloride Carbon Dioxide BUN Creatinine Glucose POC Glucose 206 H 114 H 115 H Lactic Acid Calcium Phosphorus Magnesium Direct Bilirubin AST ALT Alkaline Phosphatase Lactate Dehydrogenase Troponin T C-Reactive Protein Total Protein Albumin Prealbumin Triglycerides Cholesterol LDL Cholesterol Direct HDL Cholesterol Urine pH Urine WBC (Auto) Urine Creatinine Urine Total Protein Fluid Total Protein Vancomycin Trough Rheumatoid Factor Complement C4 Miscellaneous Test Crossmatch 09/22/16 09/22/16 09/22/16 07:50 07:50 12:00 WBC 17.8 H RBC 3.04 L Hgb 8.0 L Hct 24.7 L MCV MCH 26 L MCHC RDW 21.6 H Plt Count Lymph % (Auto) [place] % (Auto) Lymph # [place] # Baso # Seg Neutrophils % Seg Neuts % (Manual) Lymphocytes % (Manual) Monocytes % (Manual) Eosinophils % (Manual) Basophils % (Manual) Nucleated RBC % Seg Neutrophils # Seg Neutrophils # Man Lymphocytes # (Manual) Monocytes # (Manual) Eosinophils # (Manual) Basophils # (Manual) PT INR Fibrinogen dRVVT Confirm Interp Factor V Activity POC ABG pH POC ABG pCO2 POC ABG pO2 ABG pO2 ABG HCO3 ABG Base Excess ABG Hemoglobin Oxyhemoglobin Sodium 150 H Potassium Chloride 118.2 H Carbon Dioxide 14 L BUN 111 H Creatinine 3.7 H Glucose 157 H POC Glucose 183 H Lactic Acid Calcium Phosphorus Magnesium Direct Bilirubin AST ALT Alkaline Phosphatase Lactate Dehydrogenase Troponin T C-Reactive Protein Total Protein Albumin Prealbumin Triglycerides Cholesterol LDL Cholesterol Direct HDL Cholesterol Urine pH Urine WBC (Auto) Urine Creatinine Urine Total Protein Fluid Total Protein Vancomycin Trough Rheumatoid Factor Complement C4 Miscellaneous Test Crossmatch 09/22/16 09/22/16 09/23/16 17:29 23:10 05:00 WBC 19.2 H RBC 3.13 L Hgb 8.0 L Hct 25.2 L MCV MCH 26 L MCHC RDW 22.1 H Plt Count Lymph % (Auto) [place] % (Auto) Lymph # [place] # Baso # Seg Neutrophils % Seg Neuts % (Manual) 92.0 H Lymphocytes % (Manual) 3.0 L Monocytes % (Manual) Eosinophils % (Manual) Basophils % (Manual) Nucleated RBC % Seg Neutrophils # Seg Neutrophils # Man 17.7 H Lymphocytes # (Manual) 0.6 L Monocytes # (Manual) Eosinophils # (Manual) Basophils # (Manual) PT INR Fibrinogen dRVVT Confirm Interp Factor V Activity POC ABG pH POC ABG pCO2 POC ABG pO2 ABG pO2 ABG HCO3 ABG Base Excess ABG Hemoglobin Oxyhemoglobin Sodium Potassium Chloride Carbon Dioxide BUN Creatinine Glucose POC Glucose 197 H 169 H Lactic Acid Calcium Phosphorus Magnesium Direct Bilirubin AST ALT Alkaline Phosphatase Lactate Dehydrogenase Troponin T C-Reactive Protein Total Protein Albumin Prealbumin Triglycerides Cholesterol LDL Cholesterol Direct HDL Cholesterol Urine pH Urine WBC (Auto) Urine Creatinine Urine Total Protein Fluid Total Protein Vancomycin Trough Rheumatoid Factor Complement C4 Miscellaneous Test Crossmatch 09/23/16 09/23/16 09/23/16 05:00 05:00 05:10 WBC RBC Hgb Hct MCV MCH MCHC RDW Plt Count Lymph % (Auto) [place] % (Auto) Lymph # [place] # Baso # Seg Neutrophils % Seg Neuts % (Manual) Lymphocytes % (Manual) Monocytes % (Manual) Eosinophils % (Manual) Basophils % (Manual) Nucleated RBC % Seg Neutrophils # Seg Neutrophils # Man Lymphocytes # (Manual) Monocytes # (Manual) Eosinophils # (Manual) Basophils # (Manual) PT INR Fibrinogen dRVVT Confirm Interp Factor V Activity POC ABG pH POC ABG pCO2 POC ABG pO2 ABG pO2 ABG HCO3 ABG Base Excess ABG Hemoglobin Oxyhemoglobin Sodium 147 H Potassium 3.2 L Chloride 115.7 H Carbon Dioxide 13 L BUN 111 H Creatinine 3.8 H Glucose 194 H POC Glucose 188 H Lactic Acid Calcium 7.3 L D Phosphorus Magnesium Direct Bilirubin AST ALT Alkaline Phosphatase Lactate Dehydrogenase Troponin T C-Reactive Protein 3.20 H Total Protein Albumin Prealbumin Triglycerides Cholesterol LDL Cholesterol Direct HDL Cholesterol Urine pH Urine WBC (Auto) Urine Creatinine Urine Total Protein Fluid Total Protein Vancomycin Trough Rheumatoid Factor Complement C4 Miscellaneous Test Crossmatch 09/23/16 09/23/16 09/23/16 11:37 12:29 18:01 WBC RBC Hgb Hct MCV MCH MCHC RDW Plt Count Lymph % (Auto) [place] % (Auto) Lymph # [place] # Baso # Seg Neutrophils % Seg Neuts % (Manual) Lymphocytes % (Manual) Monocytes % (Manual) Eosinophils % (Manual) Basophils % (Manual) Nucleated RBC % Seg Neutrophils # Seg Neutrophils # Man Lymphocytes # (Manual) Monocytes # (Manual) Eosinophils # (Manual) Basophils # (Manual) PT INR Fibrinogen dRVVT Confirm Interp Factor V Activity POC ABG pH POC ABG pCO2 18.9 L POC ABG pO2 143 H ABG pO2 ABG HCO3 ABG Base Excess ABG Hemoglobin Oxyhemoglobin Sodium Potassium Chloride Carbon Dioxide BUN Creatinine Glucose POC Glucose 153 H 108 H Lactic Acid Calcium Phosphorus Magnesium Direct Bilirubin AST ALT Alkaline Phosphatase Lactate Dehydrogenase Troponin T C-Reactive Protein Total Protein Albumin Prealbumin Triglycerides Cholesterol LDL Cholesterol Direct HDL Cholesterol Urine pH Urine WBC (Auto) Urine Creatinine Urine Total Protein Fluid Total Protein Vancomycin Trough Rheumatoid Factor Complement C4 Miscellaneous Test Crossmatch 09/23/16 09/23/16 09/24/16 21:19 23:43 05:16 WBC RBC Hgb Hct MCV MCH MCHC RDW Plt Count Lymph % (Auto) [place] % (Auto) Lymph # [place] # Baso # Seg Neutrophils % Seg Neuts % (Manual) Lymphocytes % (Manual) Monocytes % (Manual) Eosinophils % (Manual) Basophils % (Manual) Nucleated RBC % Seg Neutrophils # Seg Neutrophils # Man Lymphocytes # (Manual) Monocytes # (Manual) Eosinophils # (Manual) Basophils # (Manual) PT INR Fibrinogen dRVVT Confirm Interp Factor V Activity POC ABG pH POC ABG pCO2 17.3 L POC ABG pO2 112 H ABG pO2 ABG HCO3 ABG Base Excess ABG Hemoglobin Oxyhemoglobin Sodium Potassium Chloride Carbon Dioxide BUN Creatinine Glucose POC Glucose 143 H 164 H Lactic Acid Calcium Phosphorus Magnesium Direct Bilirubin AST ALT Alkaline Phosphatase Lactate Dehydrogenase Troponin T C-Reactive Protein Total Protein Albumin Prealbumin Triglycerides Cholesterol LDL Cholesterol Direct HDL Cholesterol Urine pH Urine WBC (Auto) Urine Creatinine Urine Total Protein Fluid Total Protein Vancomycin Trough Rheumatoid Factor Complement C4 Miscellaneous Test Crossmatch 09/24/16 09/24/16 09/24/16 05:21 11:58 17:06 WBC RBC Hgb Hct MCV MCH MCHC RDW Plt Count Lymph % (Auto) [place] % (Auto) Lymph # [place] # Baso # Seg Neutrophils % Seg Neuts % (Manual) Lymphocytes % (Manual) Monocytes % (Manual) Eosinophils % (Manual) Basophils % (Manual) Nucleated RBC % Seg Neutrophils # Seg Neutrophils # Man Lymphocytes # (Manual) Monocytes # (Manual) Eosinophils # (Manual) Basophils # (Manual) PT INR Fibrinogen dRVVT Confirm Interp Factor V Activity POC ABG pH POC ABG pCO2 POC ABG pO2 ABG pO2 ABG HCO3 ABG Base Excess ABG Hemoglobin Oxyhemoglobin Sodium Potassium Chloride Carbon Dioxide 10 L BUN 103 H Creatinine 4.3 H Glucose 163 H POC Glucose 173 H 167 H Lactic Acid Calcium 6.5 L Phosphorus Magnesium Direct Bilirubin AST ALT Alkaline Phosphatase Lactate Dehydrogenase Troponin T C-Reactive Protein Total Protein Albumin Prealbumin Triglycerides Cholesterol LDL Cholesterol Direct HDL Cholesterol Urine pH Urine WBC (Auto) Urine Creatinine Urine Total Protein Fluid Total Protein Vancomycin Trough Rheumatoid Factor Complement C4 Miscellaneous Test Crossmatch 09/24/16 09/24/16 09/24/16 20:15 21:02 23:48 WBC RBC Hgb Hct MCV MCH MCHC RDW Plt Count Lymph % (Auto) [place] % (Auto) Lymph # [place] # Baso # Seg Neutrophils % Seg Neuts % (Manual) Lymphocytes % (Manual) Monocytes % (Manual) Eosinophils % (Manual) Basophils % (Manual) Nucleated RBC % Seg Neutrophils # Seg Neutrophils # Man Lymphocytes # (Manual) Monocytes # (Manual) Eosinophils # (Manual) Basophils # (Manual) PT INR Fibrinogen dRVVT Confirm Interp Factor V Activity POC ABG pH 7.288 L POC ABG pCO2 30.2 L 21.5 L POC ABG pO2 32 L 39 L ABG pO2 ABG HCO3 ABG Base Excess ABG Hemoglobin Oxyhemoglobin Sodium Potassium Chloride Carbon Dioxide BUN Creatinine Glucose POC Glucose 109 H Lactic Acid Calcium Phosphorus Magnesium Direct Bilirubin AST ALT Alkaline Phosphatase Lactate Dehydrogenase Troponin T C-Reactive Protein Total Protein Albumin Prealbumin Triglycerides Cholesterol LDL Cholesterol Direct HDL Cholesterol Urine pH Urine WBC (Auto) Urine Creatinine Urine Total Protein Fluid Total Protein Vancomycin Trough Rheumatoid Factor Complement C4 Miscellaneous Test Crossmatch 09/25/16 09/25/16 09/25/16 04:20 04:20 04:20 WBC RBC 2.58 L Hgb 7.0 L Hct 21.0 L MCV MCH 27 L MCHC RDW 23.8 H Plt Count Lymph % (Auto) [place] % (Auto) Lymph # [place] # Baso # Seg Neutrophils % Seg Neuts % (Manual) Lymphocytes % (Manual) 12.0 L Monocytes % (Manual) Eosinophils % (Manual) 7.0 H Basophils % (Manual) 2.0 H Nucleated RBC % Seg Neutrophils # Seg Neutrophils # Man Lymphocytes # (Manual) 0.9 L Monocytes # (Manual) Eosinophils # (Manual) 0.5 H Basophils # (Manual) PT INR Fibrinogen dRVVT Confirm Interp Factor V Activity POC ABG pH POC ABG pCO2 POC ABG pO2 ABG pO2 ABG HCO3 ABG Base Excess ABG Hemoglobin Oxyhemoglobin Sodium Potassium Chloride Carbon Dioxide 15 L BUN 72 H Creatinine 3.8 H Glucose POC Glucose Lactic Acid Calcium 6.0 L Phosphorus 4.60 H Magnesium 1.60 L Direct Bilirubin AST ALT Alkaline Phosphatase Lactate Dehydrogenase Troponin T C-Reactive Protein Total Protein Albumin Prealbumin Triglycerides Cholesterol LDL Cholesterol Direct HDL Cholesterol Urine pH Urine WBC (Auto) Urine Creatinine Urine Total Protein Fluid Total Protein Vancomycin Trough Rheumatoid Factor Complement C4 Miscellaneous Test Crossmatch 09/25/16 09/25/16 09/25/16 04:57 08:02 10:30 WBC RBC Hgb Hct MCV MCH MCHC RDW Plt Count Lymph % (Auto) [place] % (Auto) Lymph # [place] # Baso # Seg Neutrophils % Seg Neuts % (Manual) Lymphocytes % (Manual) Monocytes % (Manual) Eosinophils % (Manual) Basophils % (Manual) Nucleated RBC % Seg Neutrophils # Seg Neutrophils # Man Lymphocytes # (Manual) Monocytes # (Manual) Eosinophils # (Manual) Basophils # (Manual) PT INR Fibrinogen dRVVT Confirm Interp Factor V Activity POC ABG pH POC ABG pCO2 24.7 L POC ABG pO2 152 H ABG pO2 ABG HCO3 ABG Base Excess ABG Hemoglobin Oxyhemoglobin Sodium Potassium Chloride Carbon Dioxide BUN Creatinine Glucose POC Glucose 113 H Lactic Acid Calcium Phosphorus Magnesium Direct Bilirubin AST ALT Alkaline Phosphatase Lactate Dehydrogenase Troponin T C-Reactive Protein Total Protein Albumin Prealbumin Triglycerides Cholesterol LDL Cholesterol Direct HDL Cholesterol Urine pH Urine WBC (Auto) Urine Creatinine Urine Total Protein Fluid Total Protein Vancomycin Trough Rheumatoid Factor Complement C4 Miscellaneous Test Crossmatch See Detail 09/25/16 09/25/16 09/25/16 12:05 17:44 23:47 WBC RBC Hgb Hct MCV MCH MCHC RDW Plt Count Lymph % (Auto) [place] % (Auto) Lymph # [place] # Baso # Seg Neutrophils % Seg Neuts % (Manual) Lymphocytes % (Manual) Monocytes % (Manual) Eosinophils % (Manual) Basophils % (Manual) Nucleated RBC % Seg Neutrophils # Seg Neutrophils # Man Lymphocytes # (Manual) Monocytes # (Manual) Eosinophils # (Manual) Basophils # (Manual) PT INR Fibrinogen dRVVT Confirm Interp Factor V Activity POC ABG pH POC ABG pCO2 POC ABG pO2 ABG pO2 ABG HCO3 ABG Base Excess ABG Hemoglobin Oxyhemoglobin Sodium Potassium Chloride Carbon Dioxide BUN Creatinine Glucose POC Glucose 117 H 119 H 150 H Lactic Acid Calcium Phosphorus Magnesium Direct Bilirubin AST ALT Alkaline Phosphatase Lactate Dehydrogenase Troponin T C-Reactive Protein Total Protein Albumin Prealbumin Triglycerides Cholesterol LDL Cholesterol Direct HDL Cholesterol Urine pH Urine WBC (Auto) Urine Creatinine Urine Total Protein Fluid Total Protein Vancomycin Trough Rheumatoid Factor Complement C4 Miscellaneous Test Crossmatch 09/26/16 09/26/16 09/26/16 04:25 04:25 04:25 WBC RBC 2.65 L Hgb 7.4 L Hct 21.6 L MCV MCH MCHC RDW 22.5 H Plt Count Lymph % (Auto) [place] % (Auto) Lymph # [place] # Baso # Seg Neutrophils % Seg Neuts % (Manual) Lymphocytes % (Manual) 6.0 L Monocytes % (Manual) Eosinophils % (Manual) 11.0 H Basophils % (Manual) Nucleated RBC % Seg Neutrophils # Seg Neutrophils # Man Lymphocytes # (Manual) 0.4 L Monocytes # (Manual) Eosinophils # (Manual) 0.6 H Basophils # (Manual) PT INR Fibrinogen dRVVT Confirm Interp Factor V Activity POC ABG pH POC ABG pCO2 POC ABG pO2 ABG pO2 ABG HCO3 ABG Base Excess ABG Hemoglobin Oxyhemoglobin Sodium Potassium Chloride 97.0 L Carbon Dioxide 19 L BUN 43 H Creatinine 2.6 H Glucose 130 H POC Glucose Lactic Acid 4.40 H* Calcium 6.7 L Phosphorus Magnesium Direct Bilirubin AST ALT Alkaline Phosphatase Lactate Dehydrogenase Troponin T C-Reactive Protein Total Protein Albumin Prealbumin Triglycerides Cholesterol LDL Cholesterol Direct HDL Cholesterol Urine pH Urine WBC (Auto) Urine Creatinine Urine Total Protein Fluid Total Protein Vancomycin Trough Rheumatoid Factor Complement C4 Miscellaneous Test Crossmatch 09/26/16 09/26/16 09/26/16 05:20 11:44 12:12 WBC RBC Hgb Hct MCV MCH MCHC RDW Plt Count Lymph % (Auto) [place] % (Auto) Lymph # [place] # Baso # Seg Neutrophils % Seg Neuts % (Manual) Lymphocytes % (Manual) Monocytes % (Manual) Eosinophils % (Manual) Basophils % (Manual) Nucleated RBC % Seg Neutrophils # Seg Neutrophils # Man Lymphocytes # (Manual) Monocytes # (Manual) Eosinophils # (Manual) Basophils # (Manual) PT INR Fibrinogen dRVVT Confirm Interp Factor V Activity POC ABG pH POC ABG pCO2 27.0 L POC ABG pO2 69 L ABG pO2 ABG HCO3 ABG Base Excess ABG Hemoglobin Oxyhemoglobin Sodium Potassium Chloride Carbon Dioxide BUN Creatinine Glucose POC Glucose 121 H 128 H Lactic Acid Calcium Phosphorus Magnesium Direct Bilirubin AST ALT Alkaline Phosphatase Lactate Dehydrogenase Troponin T C-Reactive Protein Total Protein Albumin Prealbumin Triglycerides Cholesterol LDL Cholesterol Direct HDL Cholesterol Urine pH Urine WBC (Auto) Urine Creatinine Urine Total Protein Fluid Total Protein Vancomycin Trough Rheumatoid Factor Complement C4 Miscellaneous Test Crossmatch 09/26/16 09/26/16 09/27/16 18:31 23:40 08:20 WBC RBC Hgb Hct MCV MCH MCHC RDW Plt Count Lymph % (Auto) [place] % (Auto) Lymph # [place] # Baso # Seg Neutrophils % Seg Neuts % (Manual) Lymphocytes % (Manual) Monocytes % (Manual) Eosinophils % (Manual) Basophils % (Manual) Nucleated RBC % Seg Neutrophils # Seg Neutrophils # Man Lymphocytes # (Manual) Monocytes # (Manual) Eosinophils # (Manual) Basophils # (Manual) PT INR Fibrinogen dRVVT Confirm Interp Factor V Activity POC ABG pH POC ABG pCO2 POC ABG pO2 ABG pO2 ABG HCO3 ABG Base Excess ABG Hemoglobin Oxyhemoglobin Sodium Potassium Chloride Carbon Dioxide BUN Creatinine Glucose POC Glucose 120 H 133 H Lactic Acid 4.10 H* Calcium Phosphorus Magnesium Direct Bilirubin AST ALT Alkaline Phosphatase Lactate Dehydrogenase Troponin T C-Reactive Protein Total Protein Albumin Prealbumin Triglycerides Cholesterol LDL Cholesterol Direct HDL Cholesterol Urine pH Urine WBC (Auto) Urine Creatinine Urine Total Protein Fluid Total Protein Vancomycin Trough Rheumatoid Factor Complement C4 Miscellaneous Test Crossmatch 09/27/16 09/27/16 09/27/16 11:23 15:00 18:15 WBC RBC Hgb Hct MCV MCH MCHC RDW Plt Count Lymph % (Auto) [place] % (Auto) Lymph # [place] # Baso # Seg Neutrophils % Seg Neuts % (Manual) Lymphocytes % (Manual) Monocytes % (Manual) Eosinophils % (Manual) Basophils % (Manual) Nucleated RBC % Seg Neutrophils # Seg Neutrophils # Man Lymphocytes # (Manual) Monocytes # (Manual) Eosinophils # (Manual) Basophils # (Manual) PT INR Fibrinogen dRVVT Confirm Interp Factor V Activity POC ABG pH 7.459 H POC ABG pCO2 27.1 L POC ABG pO2 140 H ABG pO2 ABG HCO3 ABG Base Excess ABG Hemoglobin Oxyhemoglobin Sodium Potassium Chloride Carbon Dioxide BUN Creatinine Glucose POC Glucose 114 H 127 H Lactic Acid Calcium Phosphorus Magnesium Direct Bilirubin AST ALT Alkaline Phosphatase Lactate Dehydrogenase Troponin T C-Reactive Protein Total Protein Albumin Prealbumin Triglycerides Cholesterol LDL Cholesterol Direct HDL Cholesterol Urine pH Urine WBC (Auto) Urine Creatinine Urine Total Protein Fluid Total Protein Vancomycin Trough Rheumatoid Factor Complement C4 Miscellaneous Test Crossmatch 09/27/16 09/27/16 09/28/16 Unknown Unknown 03:45 WBC RBC 2.49 L Hgb 6.8 L Hct 20.7 L MCV MCH 27 L MCHC RDW 22.1 H Plt Count Lymph % (Auto) [place] % (Auto) Lymph # [place] # Baso # Seg Neutrophils % Seg Neuts % (Manual) 32.0 L Lymphocytes % (Manual) 12.0 L Monocytes % (Manual) 11.0 H Eosinophils % (Manual) 10.0 H Basophils % (Manual) Nucleated RBC % Seg Neutrophils # Seg Neutrophils # Man Lymphocytes # (Manual) 1.0 L Monocytes # (Manual) 0.9 H Eosinophils # (Manual) 0.8 H Basophils # (Manual) PT INR Fibrinogen dRVVT Confirm Interp Factor V Activity POC ABG pH POC ABG pCO2 POC ABG pO2 ABG pO2 ABG HCO3 ABG Base Excess ABG Hemoglobin Oxyhemoglobin Sodium 135 L 135 L Potassium 3.5 L Chloride 93.6 L 94.4 L Carbon Dioxide 17 L 21 L BUN 45 H 28 H Creatinine 3.3 H 2.5 H Glucose 106 H POC Glucose Lactic Acid Calcium 7.3 L 7.1 L Phosphorus Magnesium Direct Bilirubin AST ALT Alkaline Phosphatase Lactate Dehydrogenase Troponin T C-Reactive Protein Total Protein Albumin Prealbumin Triglycerides Cholesterol LDL Cholesterol Direct HDL Cholesterol Urine pH Urine WBC (Auto) Urine Creatinine Urine Total Protein Fluid Total Protein Vancomycin Trough Rheumatoid Factor Complement C4 Miscellaneous Test Crossmatch 09/28/16 09/28/16 09/28/16 03:45 07:25 11:58 WBC 13.3 H RBC 3.01 L Hgb 8.4 L Hct 25.0 L MCV MCH MCHC RDW 20.5 H Plt Count 128 L Lymph % (Auto) [place] % (Auto) Lymph # [place] # Baso # Seg Neutrophils % Seg Neuts % (Manual) Lymphocytes % (Manual) 7.0 L Monocytes % (Manual) Eosinophils % (Manual) 6.0 H Basophils % (Manual) Nucleated RBC % Seg Neutrophils # Seg Neutrophils # Man Lymphocytes # (Manual) 0.9 L Monocytes # (Manual) Eosinophils # (Manual) 0.8 H Basophils # (Manual) PT INR Fibrinogen dRVVT Confirm Interp Factor V Activity POC ABG pH POC ABG pCO2 POC ABG pO2 ABG pO2 ABG HCO3 ABG Base Excess ABG Hemoglobin Oxyhemoglobin Sodium Potassium Chloride Carbon Dioxide BUN Creatinine Glucose POC Glucose 121 H Lactic Acid 4.50 H* Calcium Phosphorus Magnesium Direct Bilirubin AST ALT Alkaline Phosphatase Lactate Dehydrogenase Troponin T C-Reactive Protein Total Protein Albumin Prealbumin Triglycerides Cholesterol LDL Cholesterol Direct HDL Cholesterol Urine pH Urine WBC (Auto) Urine Creatinine Urine Total Protein Fluid Total Protein Vancomycin Trough Rheumatoid Factor Complement C4 Miscellaneous Test Crossmatch 09/29/16 09/29/16 09/29/16 06:45 06:45 06:45 WBC 14.9 H RBC 2.74 L Hgb 7.6 L Hct 23.2 L MCV MCH MCHC RDW 20.5 H Plt Count 81 L Lymph % (Auto) [place] % (Auto) Lymph # [place] # Baso # Seg Neutrophils % Seg Neuts % (Manual) 81.0 H Lymphocytes % (Manual) 4.0 L Monocytes % (Manual) Eosinophils % (Manual) Basophils % (Manual) Nucleated RBC % Seg Neutrophils # Seg Neutrophils # Man 12.1 H Lymphocytes # (Manual) 0.6 L Monocytes # (Manual) Eosinophils # (Manual) Basophils # (Manual) PT INR Fibrinogen dRVVT Confirm Interp Factor V Activity POC ABG pH POC ABG pCO2 POC ABG pO2 ABG pO2 ABG HCO3 ABG Base Excess ABG Hemoglobin Oxyhemoglobin Sodium 133 L Potassium 3.4 L Chloride 92.5 L Carbon Dioxide 21 L BUN 33 H Creatinine 3.0 H Glucose POC Glucose Lactic Acid Calcium 6.6 L Phosphorus Magnesium 1.40 L Direct Bilirubin 0.9 H AST ALT Alkaline Phosphatase Lactate Dehydrogenase Troponin T C-Reactive Protein Total Protein 4.3 L Albumin 1.3 L Prealbumin Triglycerides Cholesterol LDL Cholesterol Direct HDL Cholesterol Urine pH Urine WBC (Auto) Urine Creatinine Urine Total Protein Fluid Total Protein Vancomycin Trough Rheumatoid Factor Complement C4 Miscellaneous Test Crossmatch 09/29/16 09/29/16 09/30/16 17:52 20:12 00:07 WBC RBC Hgb Hct MCV MCH MCHC RDW Plt Count Lymph % (Auto) [place] % (Auto) Lymph # [place] # Baso # Seg Neutrophils % Seg Neuts % (Manual) Lymphocytes % (Manual) Monocytes % (Manual) Eosinophils % (Manual) Basophils % (Manual) Nucleated RBC % Seg Neutrophils # Seg Neutrophils # Man Lymphocytes # (Manual) Monocytes # (Manual) Eosinophils # (Manual) Basophils # (Manual) PT INR Fibrinogen dRVVT Confirm Interp Factor V Activity POC ABG pH POC ABG pCO2 POC ABG pO2 ABG pO2 ABG HCO3 ABG Base Excess ABG Hemoglobin Oxyhemoglobin Sodium Potassium Chloride Carbon Dioxide BUN Creatinine Glucose POC Glucose 50 L 51 L Lactic Acid Calcium Phosphorus Magnesium Direct Bilirubin AST ALT Alkaline Phosphatase Lactate Dehydrogenase Troponin T 0.204 H* C-Reactive Protein Total Protein Albumin Prealbumin Triglycerides Cholesterol 31 L LDL Cholesterol Direct 4 L HDL Cholesterol 3 L Urine pH Urine WBC (Auto) Urine Creatinine Urine Total Protein Fluid Total Protein Vancomycin Trough Rheumatoid Factor Complement C4 Miscellaneous Test Crossmatch 09/30/16 09/30/16 09/30/16 01:30 05:15 06:10 WBC RBC Hgb Hct MCV MCH MCHC RDW Plt Count Lymph % (Auto) [place] % (Auto) Lymph # [place] # Baso # Seg Neutrophils % Seg Neuts % (Manual) Lymphocytes % (Manual) Monocytes % (Manual) Eosinophils % (Manual) Basophils % (Manual) Nucleated RBC % Seg Neutrophils # Seg Neutrophils # Man Lymphocytes # (Manual) Monocytes # (Manual) Eosinophils # (Manual) Basophils # (Manual) PT INR Fibrinogen dRVVT Confirm Interp Factor V Activity POC ABG pH POC ABG pCO2 POC ABG pO2 ABG pO2 ABG HCO3 ABG Base Excess ABG Hemoglobin Oxyhemoglobin Sodium 133 L Potassium 3.2 L Chloride 93.2 L Carbon Dioxide 19 L BUN 36 H Creatinine 3.2 H Glucose 104 H POC Glucose 167 H 146 H Lactic Acid Calcium 6.4 L Phosphorus Magnesium 1.60 L Direct Bilirubin AST ALT Alkaline Phosphatase Lactate Dehydrogenase Troponin T C-Reactive Protein Total Protein Albumin Prealbumin Triglycerides Cholesterol LDL Cholesterol Direct HDL Cholesterol Urine pH Urine WBC (Auto) Urine Creatinine Urine Total Protein Fluid Total Protein Vancomycin Trough Rheumatoid Factor Complement C4 Miscellaneous Test Crossmatch 09/30/16 09/30/16 09/30/16 11:26 13:39 18:38 WBC RBC Hgb Hct MCV MCH MCHC RDW Plt Count Lymph % (Auto) [place] % (Auto) Lymph # [place] # Baso # Seg Neutrophils % Seg Neuts % (Manual) Lymphocytes % (Manual) Monocytes % (Manual) Eosinophils % (Manual) Basophils % (Manual) Nucleated RBC % Seg Neutrophils # Seg Neutrophils # Man Lymphocytes # (Manual) Monocytes # (Manual) Eosinophils # (Manual) Basophils # (Manual) PT INR Fibrinogen dRVVT Confirm Interp Factor V Activity POC ABG pH 7.479 H POC ABG pCO2 29.8 L POC ABG pO2 117 H ABG pO2 ABG HCO3 ABG Base Excess ABG Hemoglobin Oxyhemoglobin Sodium Potassium Chloride Carbon Dioxide BUN Creatinine Glucose POC Glucose 140 H 122 H Lactic Acid Calcium Phosphorus Magnesium Direct Bilirubin AST ALT Alkaline Phosphatase Lactate Dehydrogenase Troponin T C-Reactive Protein Total Protein Albumin Prealbumin Triglycerides Cholesterol LDL Cholesterol Direct HDL Cholesterol Urine pH Urine WBC (Auto) Urine Creatinine Urine Total Protein Fluid Total Protein Vancomycin Trough Rheumatoid Factor Complement C4 Miscellaneous Test Crossmatch 10/01/16 10/01/16 10/01/16 06:00 06:00 12:37 WBC 12.6 H RBC 2.75 L Hgb 7.3 L Hct 23.3 L MCV MCH 27 L MCHC RDW 20.6 H Plt Count 72 L Lymph % (Auto) [place] % (Auto) Lymph # [place] # Baso # Seg Neutrophils % Seg Neuts % (Manual) 31.0 L Lymphocytes % (Manual) 8.0 L Monocytes % (Manual) Eosinophils % (Manual) Basophils % (Manual) Nucleated RBC % 3.0 H Seg Neutrophils # Seg Neutrophils # Man Lymphocytes # (Manual) 1.0 L Monocytes # (Manual) Eosinophils # (Manual) Basophils # (Manual) PT INR Fibrinogen dRVVT Confirm Interp Factor V Activity POC ABG pH POC ABG pCO2 POC ABG pO2 ABG pO2 ABG HCO3 ABG Base Excess ABG Hemoglobin Oxyhemoglobin Sodium 127 L Potassium Chloride 86.8 L Carbon Dioxide 20 L BUN 42 H Creatinine 3.5 H Glucose POC Glucose 65 L Lactic Acid Calcium 7.0 L Phosphorus Magnesium Direct Bilirubin AST ALT Alkaline Phosphatase Lactate Dehydrogenase Troponin T C-Reactive Protein Total Protein Albumin Prealbumin Triglycerides Cholesterol LDL Cholesterol Direct HDL Cholesterol Urine pH Urine WBC (Auto) Urine Creatinine Urine Total Protein Fluid Total Protein Vancomycin Trough Rheumatoid Factor Complement C4 Miscellaneous Test Crossmatch 10/01/16 10/01/16 10/02/16 17:39 23:32 00:59 WBC RBC Hgb Hct MCV MCH MCHC RDW Plt Count Lymph % (Auto) [place] % (Auto) Lymph # [place] # Baso # Seg Neutrophils % Seg Neuts % (Manual) Lymphocytes % (Manual) Monocytes % (Manual) Eosinophils % (Manual) Basophils % (Manual) Nucleated RBC % Seg Neutrophils # Seg Neutrophils # Man Lymphocytes # (Manual) Monocytes # (Manual) Eosinophils # (Manual) Basophils # (Manual) PT INR Fibrinogen dRVVT Confirm Interp Factor V Activity POC ABG pH POC ABG pCO2 POC ABG pO2 ABG pO2 ABG HCO3 ABG Base Excess ABG Hemoglobin Oxyhemoglobin Sodium Potassium Chloride Carbon Dioxide BUN Creatinine Glucose POC Glucose 107 H 52 L 145 H Lactic Acid Calcium Phosphorus Magnesium Direct Bilirubin AST ALT Alkaline Phosphatase Lactate Dehydrogenase Troponin T C-Reactive Protein Total Protein Albumin Prealbumin Triglycerides Cholesterol LDL Cholesterol Direct HDL Cholesterol Urine pH Urine WBC (Auto) Urine Creatinine Urine Total Protein Fluid Total Protein Vancomycin Trough Rheumatoid Factor Complement C4 Miscellaneous Test Crossmatch 10/02/16 10/02/16 10/02/16 10:30 10:50 10:50 WBC 14.7 H RBC 2.76 L Hgb 7.4 L Hct 23.6 L MCV MCH 27 L MCHC RDW 20.2 H Plt Count 79 L Lymph % (Auto) [place] % (Auto) Lymph # [place] # Baso # Seg Neutrophils % Seg Neuts % (Manual) 86.0 H Lymphocytes % (Manual) 6.0 L Monocytes % (Manual) Eosinophils % (Manual) Basophils % (Manual) Nucleated RBC % Seg Neutrophils # Seg Neutrophils # Man 12.6 H Lymphocytes # (Manual) 0.9 L Monocytes # (Manual) Eosinophils # (Manual) Basophils # (Manual) PT INR Fibrinogen dRVVT Confirm Interp Factor V Activity POC ABG pH 7.486 H POC ABG pCO2 30.1 L POC ABG pO2 108 H ABG pO2 ABG HCO3 ABG Base Excess ABG Hemoglobin Oxyhemoglobin Sodium 131 L Potassium 3.4 L Chloride 89.9 L Carbon Dioxide BUN 26 H Creatinine 2.6 H Glucose POC Glucose Lactic Acid Calcium 7.0 L Phosphorus Magnesium Direct Bilirubin AST ALT Alkaline Phosphatase Lactate Dehydrogenase Troponin T C-Reactive Protein Total Protein Albumin Prealbumin Triglycerides Cholesterol LDL Cholesterol Direct HDL Cholesterol Urine pH Urine WBC (Auto) Urine Creatinine Urine Total Protein Fluid Total Protein Vancomycin Trough Rheumatoid Factor Complement C4 Miscellaneous Test Crossmatch 10/02/16 10/03/16 10/03/16 23:45 00:45 05:10 WBC 12.9 H RBC 2.77 L Hgb 7.6 L Hct 23.7 L MCV MCH 27 L MCHC RDW 19.7 H Plt Count 89 L Lymph % (Auto) [place] % (Auto) Lymph # [place] # Baso # Seg Neutrophils % Seg Neuts % (Manual) Lymphocytes % (Manual) 8.0 L Monocytes % (Manual) Eosinophils % (Manual) Basophils % (Manual) Nucleated RBC % Seg Neutrophils # 11.9 H Seg Neutrophils # Man Lymphocytes # (Manual) 1.0 L Monocytes # (Manual) Eosinophils # (Manual) Basophils # (Manual) PT INR Fibrinogen dRVVT Confirm Interp Factor V Activity POC ABG pH POC ABG pCO2 POC ABG pO2 ABG pO2 ABG HCO3 ABG Base Excess ABG Hemoglobin Oxyhemoglobin Sodium Potassium Chloride Carbon Dioxide BUN Creatinine Glucose POC Glucose 55 L 199 H Lactic Acid Calcium Phosphorus Magnesium Direct Bilirubin AST ALT Alkaline Phosphatase Lactate Dehydrogenase Troponin T C-Reactive Protein Total Protein Albumin Prealbumin Triglycerides Cholesterol LDL Cholesterol Direct HDL Cholesterol Urine pH Urine WBC (Auto) Urine Creatinine Urine Total Protein Fluid Total Protein Vancomycin Trough Rheumatoid Factor Complement C4 Miscellaneous Test Crossmatch 10/03/16 10/03/16 10/03/16 05:10 12:14 13:18 WBC RBC Hgb Hct MCV MCH MCHC RDW Plt Count Lymph % (Auto) [place] % (Auto) Lymph # [place] # Baso # Seg Neutrophils % Seg Neuts % (Manual) Lymphocytes % (Manual) Monocytes % (Manual) Eosinophils % (Manual) Basophils % (Manual) Nucleated RBC % Seg Neutrophils # Seg Neutrophils # Man Lymphocytes # (Manual) Monocytes # (Manual) Eosinophils # (Manual) Basophils # (Manual) PT INR Fibrinogen dRVVT Confirm Interp Factor V Activity POC ABG pH POC ABG pCO2 POC ABG pO2 ABG pO2 ABG HCO3 ABG Base Excess ABG Hemoglobin Oxyhemoglobin Sodium 129 L Potassium 3.3 L Chloride 88.8 L Carbon Dioxide 20 L BUN 29 H Creatinine 2.8 H Glucose POC Glucose 68 L 127 H Lactic Acid Calcium 7.2 L Phosphorus Magnesium Direct Bilirubin AST ALT Alkaline Phosphatase Lactate Dehydrogenase Troponin T C-Reactive Protein Total Protein Albumin Prealbumin Triglycerides Cholesterol LDL Cholesterol Direct HDL Cholesterol Urine pH Urine WBC (Auto) Urine Creatinine Urine Total Protein Fluid Total Protein Vancomycin Trough Rheumatoid Factor Complement C4 Miscellaneous Test Crossmatch 10/03/16 10/03/16 10/03/16 14:42 18:21 19:09 WBC RBC Hgb Hct MCV MCH MCHC RDW Plt Count Lymph % (Auto) [place] % (Auto) Lymph # [place] # Baso # Seg Neutrophils % Seg Neuts % (Manual) Lymphocytes % (Manual) Monocytes % (Manual) Eosinophils % (Manual) Basophils % (Manual) Nucleated RBC % Seg Neutrophils # Seg Neutrophils # Man Lymphocytes # (Manual) Monocytes # (Manual) Eosinophils # (Manual) Basophils # (Manual) PT INR Fibrinogen dRVVT Confirm Interp Factor V Activity POC ABG pH 7.499 H POC ABG pCO2 28.4 L POC ABG pO2 44 L ABG pO2 ABG HCO3 ABG Base Excess ABG Hemoglobin Oxyhemoglobin Sodium Potassium Chloride Carbon Dioxide BUN Creatinine Glucose POC Glucose 64 L 205 H Lactic Acid Calcium Phosphorus Magnesium Direct Bilirubin AST ALT Alkaline Phosphatase Lactate Dehydrogenase Troponin T C-Reactive Protein Total Protein Albumin Prealbumin Triglycerides Cholesterol LDL Cholesterol Direct HDL Cholesterol Urine pH Urine WBC (Auto) Urine Creatinine Urine Total Protein Fluid Total Protein Vancomycin Trough Rheumatoid Factor Complement C4 Miscellaneous Test Crossmatch 10/03/16 10/04/16 10/04/16 23:33 04:18 06:30 WBC RBC 2.54 L Hgb 7.1 L Hct 21.7 L MCV MCH MCHC RDW 19.5 H Plt Count 76 L Lymph % (Auto) [place] % (Auto) Lymph # [place] # Baso # Seg Neutrophils % Seg Neuts % (Manual) 88.0 H Lymphocytes % (Manual) 6.0 L Monocytes % (Manual) Eosinophils % (Manual) Basophils % (Manual) Nucleated RBC % Seg Neutrophils # Seg Neutrophils # Man 8.8 H Lymphocytes # (Manual) 0.6 L Monocytes # (Manual) Eosinophils # (Manual) Basophils # (Manual) PT INR Fibrinogen dRVVT Confirm Interp Factor V Activity POC ABG pH 7.461 H POC ABG pCO2 33.6 L POC ABG pO2 211 H ABG pO2 ABG HCO3 ABG Base Excess ABG Hemoglobin Oxyhemoglobin Sodium Potassium Chloride Carbon Dioxide BUN Creatinine Glucose POC Glucose 136 H Lactic Acid Calcium Phosphorus Magnesium Direct Bilirubin AST ALT Alkaline Phosphatase Lactate Dehydrogenase Troponin T C-Reactive Protein Total Protein Albumin Prealbumin Triglycerides Cholesterol LDL Cholesterol Direct HDL Cholesterol Urine pH Urine WBC (Auto) Urine Creatinine Urine Total Protein Fluid Total Protein Vancomycin Trough Rheumatoid Factor Complement C4 Miscellaneous Test Crossmatch 10/04/16 10/04/16 10/04/16 06:30 11:45 17:54 WBC RBC Hgb Hct MCV MCH MCHC RDW Plt Count Lymph % (Auto) [place] % (Auto) Lymph # [place] # Baso # Seg Neutrophils % Seg Neuts % (Manual) Lymphocytes % (Manual) Monocytes % (Manual) Eosinophils % (Manual) Basophils % (Manual) Nucleated RBC % Seg Neutrophils # Seg Neutrophils # Man Lymphocytes # (Manual) Monocytes # (Manual) Eosinophils # (Manual) Basophils # (Manual) PT INR Fibrinogen dRVVT Confirm Interp Factor V Activity POC ABG pH POC ABG pCO2 POC ABG pO2 ABG pO2 ABG HCO3 ABG Base Excess ABG Hemoglobin Oxyhemoglobin Sodium 128 L Potassium Chloride 87.4 L Carbon Dioxide 20 L BUN 34 H Creatinine 2.9 H Glucose 127 H POC Glucose 158 H 160 H Lactic Acid Calcium 7.4 L Phosphorus Magnesium Direct Bilirubin AST ALT Alkaline Phosphatase Lactate Dehydrogenase Troponin T C-Reactive Protein Total Protein Albumin Prealbumin Triglycerides Cholesterol LDL Cholesterol Direct HDL Cholesterol Urine pH Urine WBC (Auto) Urine Creatinine Urine Total Protein Fluid Total Protein Vancomycin Trough Rheumatoid Factor Complement C4 Miscellaneous Test Crossmatch 10/04/16 10/05/16 10/05/16 23:25 04:30 05:00 WBC RBC 2.64 L Hgb 7.5 L Hct 22.6 L MCV MCH MCHC RDW 19.3 H Plt Count 80 L Lymph % (Auto) [place] % (Auto) Lymph # [place] # Baso # Seg Neutrophils % Seg Neuts % (Manual) Lymphocytes % (Manual) 12.0 L Monocytes % (Manual) Eosinophils % (Manual) Basophils % (Manual) Nucleated RBC % Seg Neutrophils # Seg Neutrophils # Man Lymphocytes # (Manual) Monocytes # (Manual) Eosinophils # (Manual) Basophils # (Manual) PT INR Fibrinogen dRVVT Confirm Interp Factor V Activity POC ABG pH 7.475 H POC ABG pCO2 33.3 L POC ABG pO2 140 H ABG pO2 ABG HCO3 ABG Base Excess ABG Hemoglobin Oxyhemoglobin Sodium Potassium Chloride Carbon Dioxide BUN Creatinine Glucose POC Glucose 141 H Lactic Acid Calcium Phosphorus Magnesium Direct Bilirubin AST ALT Alkaline Phosphatase Lactate Dehydrogenase Troponin T C-Reactive Protein Total Protein Albumin Prealbumin Triglycerides Cholesterol LDL Cholesterol Direct HDL Cholesterol Urine pH Urine WBC (Auto) Urine Creatinine Urine Total Protein Fluid Total Protein Vancomycin Trough Rheumatoid Factor Complement C4 Miscellaneous Test Crossmatch 10/05/16 10/05/16 10/05/16 05:00 05:09 12:58 WBC RBC Hgb Hct MCV MCH MCHC RDW Plt Count Lymph % (Auto) [place] % (Auto) Lymph # [place] # Baso # Seg Neutrophils % Seg Neuts % (Manual) Lymphocytes % (Manual) Monocytes % (Manual) Eosinophils % (Manual) Basophils % (Manual) Nucleated RBC % Seg Neutrophils # Seg Neutrophils # Man Lymphocytes # (Manual) Monocytes # (Manual) Eosinophils # (Manual) Basophils # (Manual) PT INR Fibrinogen dRVVT Confirm Interp Factor V Activity POC ABG pH POC ABG pCO2 POC ABG pO2 ABG pO2 ABG HCO3 ABG Base Excess ABG Hemoglobin Oxyhemoglobin Sodium 131 L Potassium Chloride 94.0 L Carbon Dioxide 20 L BUN 22 H Creatinine 2.0 H Glucose 123 H POC Glucose 166 H 179 H Lactic Acid Calcium 7.7 L Phosphorus 2.20 L D Magnesium Direct Bilirubin AST ALT Alkaline Phosphatase Lactate Dehydrogenase Troponin T C-Reactive Protein Total Protein Albumin Prealbumin Triglycerides Cholesterol LDL Cholesterol Direct HDL Cholesterol Urine pH Urine WBC (Auto) Urine Creatinine Urine Total Protein Fluid Total Protein Vancomycin Trough Rheumatoid Factor Complement C4 Miscellaneous Test Crossmatch 10/05/16 10/05/16 10/05/16 15:50 18:53 23:12 WBC RBC Hgb Hct MCV MCH MCHC RDW Plt Count Lymph % (Auto) [place] % (Auto) Lymph # [place] # Baso # Seg Neutrophils % Seg Neuts % (Manual) Lymphocytes % (Manual) Monocytes % (Manual) Eosinophils % (Manual) Basophils % (Manual) Nucleated RBC % Seg Neutrophils # Seg Neutrophils # Man Lymphocytes # (Manual) Monocytes # (Manual) Eosinophils # (Manual) Basophils # (Manual) PT INR Fibrinogen dRVVT Confirm Interp Factor V Activity POC ABG pH POC ABG pCO2 POC ABG pO2 ABG pO2 ABG HCO3 ABG Base Excess ABG Hemoglobin Oxyhemoglobin Sodium Potassium Chloride Carbon Dioxide BUN Creatinine Glucose POC Glucose 150 H 164 H Lactic Acid Calcium Phosphorus Magnesium Direct Bilirubin AST ALT Alkaline Phosphatase Lactate Dehydrogenase Troponin T C-Reactive Protein Total Protein Albumin Prealbumin Triglycerides Cholesterol LDL Cholesterol Direct HDL Cholesterol Urine pH Urine WBC (Auto) Urine Creatinine Urine Total Protein Fluid Total Protein Vancomycin Trough Rheumatoid Factor Complement C4 Miscellaneous Test Crossmatch See Detail 10/06/16 10/06/16 10/06/16 03:50 03:50 04:53 WBC RBC 3.00 L Hgb 8.6 L Hct 25.8 L MCV MCH MCHC RDW 17.9 H Plt Count 65 L Lymph % (Auto) [place] % (Auto) Lymph # [place] # Baso # Seg Neutrophils % Seg Neuts % (Manual) 30.0 L Lymphocytes % (Manual) 5.0 L Monocytes % (Manual) Eosinophils % (Manual) Basophils % (Manual) Nucleated RBC % Seg Neutrophils # Seg Neutrophils # Man Lymphocytes # (Manual) 0.4 L Monocytes # (Manual) Eosinophils # (Manual) Basophils # (Manual) PT INR Fibrinogen dRVVT Confirm Interp Factor V Activity POC ABG pH 7.310 L POC ABG pCO2 49.0 H POC ABG pO2 ABG pO2 ABG HCO3 ABG Base Excess ABG Hemoglobin Oxyhemoglobin Sodium 133 L Potassium Chloride 95.9 L Carbon Dioxide BUN 26 H Creatinine 2.0 H Glucose 116 H POC Glucose Lactic Acid Calcium 7.8 L Phosphorus Magnesium Direct Bilirubin AST ALT Alkaline Phosphatase Lactate Dehydrogenase Troponin T C-Reactive Protein Total Protein Albumin Prealbumin Triglycerides Cholesterol LDL Cholesterol Direct HDL Cholesterol Urine pH Urine WBC (Auto) Urine Creatinine Urine Total Protein Fluid Total Protein Vancomycin Trough Rheumatoid Factor Complement C4 Miscellaneous Test Crossmatch 10/06/16 10/06/16 10/06/16 05:23 11:52 18:34 WBC RBC Hgb Hct MCV MCH MCHC RDW Plt Count Lymph % (Auto) [place] % (Auto) Lymph # [place] # Baso # Seg Neutrophils % Seg Neuts % (Manual) Lymphocytes % (Manual) Monocytes % (Manual) Eosinophils % (Manual) Basophils % (Manual) Nucleated RBC % Seg Neutrophils # Seg Neutrophils # Man Lymphocytes # (Manual) Monocytes # (Manual) Eosinophils # (Manual) Basophils # (Manual) PT INR Fibrinogen dRVVT Confirm Interp Factor V Activity POC ABG pH POC ABG pCO2 POC ABG pO2 ABG pO2 ABG HCO3 ABG Base Excess ABG Hemoglobin Oxyhemoglobin Sodium Potassium Chloride Carbon Dioxide BUN Creatinine Glucose POC Glucose 126 H 116 H 129 H Lactic Acid Calcium Phosphorus Magnesium Direct Bilirubin AST ALT Alkaline Phosphatase Lactate Dehydrogenase Troponin T C-Reactive Protein Total Protein Albumin Prealbumin Triglycerides Cholesterol LDL Cholesterol Direct HDL Cholesterol Urine pH Urine WBC (Auto) Urine Creatinine Urine Total Protein Fluid Total Protein Vancomycin Trough Rheumatoid Factor Complement C4 Miscellaneous Test Crossmatch 10/07/16 10/07/16 10/07/16 03:45 05:00 10:00 WBC 17.0 H RBC 2.68 L Hgb 7.3 L Hct 25.3 L MCV MCH 27 L MCHC 29 L RDW 19.6 H Plt Count 74 L Lymph % (Auto) [place] % (Auto) Lymph # [place] # Baso # Seg Neutrophils % Seg Neuts % (Manual) Lymphocytes % (Manual) 12.0 L Monocytes % (Manual) Eosinophils % (Manual) Basophils % (Manual) Nucleated RBC % 4.0 H Seg Neutrophils # Seg Neutrophils # Man 10.7 H Lymphocytes # (Manual) Monocytes # (Manual) Eosinophils # (Manual) Basophils # (Manual) PT INR Fibrinogen dRVVT Confirm Interp Factor V Activity POC ABG pH POC ABG pCO2 POC ABG pO2 ABG pO2 ABG HCO3 ABG Base Excess ABG Hemoglobin Oxyhemoglobin Sodium 130 L Potassium 3.2 L Chloride 93.9 L Carbon Dioxide 20 L BUN 44 H Creatinine 2.7 H Glucose 129 H POC Glucose Lactic Acid Calcium 7.4 L Phosphorus Magnesium Direct Bilirubin AST ALT 6 L Alkaline Phosphatase 195 H Lactate Dehydrogenase Troponin T C-Reactive Protein Total Protein 4.9 L Albumin 1.0 L Prealbumin Triglycerides Cholesterol LDL Cholesterol Direct HDL Cholesterol Urine pH Urine WBC (Auto) Urine Creatinine Urine Total Protein Fluid Total Protein Vancomycin Trough Rheumatoid Factor Complement C4 Miscellaneous Test Flexitest 1 H Crossmatch 10/07/16 10/07/16 10/07/16 10:00 11:24 18:10 WBC RBC Hgb Hct MCV MCH MCHC RDW Plt Count Lymph % (Auto) [place] % (Auto) Lymph # [place] # Baso # Seg Neutrophils % Seg Neuts % (Manual) Lymphocytes % (Manual) Monocytes % (Manual) Eosinophils % (Manual) Basophils % (Manual) Nucleated RBC % Seg Neutrophils # Seg Neutrophils # Man Lymphocytes # (Manual) Monocytes # (Manual) Eosinophils # (Manual) Basophils # (Manual) PT INR Fibrinogen dRVVT Confirm Interp Factor V Activity POC ABG pH POC ABG pCO2 POC ABG pO2 ABG pO2 ABG HCO3 ABG Base Excess ABG Hemoglobin Oxyhemoglobin Sodium Potassium Chloride Carbon Dioxide BUN Creatinine Glucose POC Glucose 116 H 130 H Lactic Acid Calcium Phosphorus Magnesium Direct Bilirubin AST ALT Alkaline Phosphatase Lactate Dehydrogenase Troponin T C-Reactive Protein 19.40 H Total Protein Albumin Prealbumin Triglycerides Cholesterol LDL Cholesterol Direct HDL Cholesterol Urine pH Urine WBC (Auto) Urine Creatinine Urine Total Protein Fluid Total Protein Vancomycin Trough Rheumatoid Factor Complement C4 Miscellaneous Test Crossmatch 10/07/16 10/08/16 10/08/16 18:30 00:00 04:00 WBC RBC Hgb Hct MCV MCH MCHC RDW Plt Count Lymph % (Auto) [place] % (Auto) Lymph # [place] # Baso # Seg Neutrophils % Seg Neuts % (Manual) Lymphocytes % (Manual) Monocytes % (Manual) Eosinophils % (Manual) Basophils % (Manual) Nucleated RBC % Seg Neutrophils # Seg Neutrophils # Man Lymphocytes # (Manual) Monocytes # (Manual) Eosinophils # (Manual) Basophils # (Manual) PT INR Fibrinogen dRVVT Confirm Interp Factor V Activity POC ABG pH POC ABG pCO2 POC ABG pO2 ABG pO2 ABG HCO3 ABG Base Excess ABG Hemoglobin Oxyhemoglobin Sodium 132 L Potassium 3.3 L Chloride 93.6 L Carbon Dioxide 17 L BUN 59 H Creatinine 2.7 H Glucose 121 H POC Glucose 122 H Lactic Acid Calcium 7.6 L Phosphorus Magnesium Direct Bilirubin AST ALT Alkaline Phosphatase Lactate Dehydrogenase Troponin T C-Reactive Protein Total Protein Albumin Prealbumin Triglycerides Cholesterol LDL Cholesterol Direct HDL Cholesterol Urine pH Urine WBC (Auto) > 182.0 H Urine Creatinine Urine Total Protein Fluid Total Protein Vancomycin Trough Rheumatoid Factor Complement C4 Miscellaneous Test Crossmatch 10/08/16 10/08/16 10/08/16 04:30 05:30 11:51 WBC RBC 5.15 H Hgb 14.4 H D Hct 44.5 H D MCV MCH MCHC RDW 19.5 H Plt Count 56 L Lymph % (Auto) [place] % (Auto) Lymph # [place] # Baso # Seg Neutrophils % Seg Neuts % (Manual) 24.0 L Lymphocytes % (Manual) 8.0 L Monocytes % (Manual) Eosinophils % (Manual) Basophils % (Manual) Nucleated RBC % 9.0 H Seg Neutrophils # Seg Neutrophils # Man Lymphocytes # (Manual) 0.7 L Monocytes # (Manual) Eosinophils # (Manual) Basophils # (Manual) PT INR Fibrinogen dRVVT Confirm Interp Factor V Activity POC ABG pH POC ABG pCO2 POC ABG pO2 ABG pO2 ABG HCO3 ABG Base Excess ABG Hemoglobin Oxyhemoglobin Sodium Potassium Chloride Carbon Dioxide BUN Creatinine Glucose POC Glucose 125 H 150 H Lactic Acid Calcium Phosphorus Magnesium Direct Bilirubin AST ALT Alkaline Phosphatase Lactate Dehydrogenase Troponin T C-Reactive Protein Total Protein Albumin Prealbumin Triglycerides Cholesterol LDL Cholesterol Direct HDL Cholesterol Urine pH Urine WBC (Auto) Urine Creatinine Urine Total Protein Fluid Total Protein Vancomycin Trough Rheumatoid Factor Complement C4 Miscellaneous Test Crossmatch 10/08/16 10/08/16 10/08/16 12:49 17:07 19:30 WBC RBC Hgb 7.1 L D Hct 22.4 L D MCV MCH MCHC RDW Plt Count Lymph % (Auto) [place] % (Auto) Lymph # [place] # Baso # Seg Neutrophils % Seg Neuts % (Manual) Lymphocytes % (Manual) Monocytes % (Manual) Eosinophils % (Manual) Basophils % (Manual) Nucleated RBC % Seg Neutrophils # Seg Neutrophils # Man Lymphocytes # (Manual) Monocytes # (Manual) Eosinophils # (Manual) Basophils # (Manual) PT INR Fibrinogen dRVVT Confirm Interp Factor V Activity POC ABG pH POC ABG pCO2 28.2 L POC ABG pO2 111 H ABG pO2 ABG HCO3 ABG Base Excess ABG Hemoglobin Oxyhemoglobin Sodium Potassium Chloride Carbon Dioxide BUN Creatinine Glucose POC Glucose 145 H Lactic Acid Calcium Phosphorus Magnesium Direct Bilirubin AST ALT Alkaline Phosphatase Lactate Dehydrogenase Troponin T C-Reactive Protein Total Protein Albumin Prealbumin Triglycerides Cholesterol LDL Cholesterol Direct HDL Cholesterol Urine pH Urine WBC (Auto) Urine Creatinine Urine Total Protein Fluid Total Protein Vancomycin Trough Rheumatoid Factor Complement C4 Miscellaneous Test Crossmatch 10/08/16 10/09/16 10/09/16 19:30 03:45 03:45 WBC 12.6 H RBC 2.36 L Hgb 6.7 L Hct 21.1 L MCV MCH MCHC RDW 19.5 H Plt Count 75 L Lymph % (Auto) [place] % (Auto) Lymph # [place] # Baso # Seg Neutrophils % Seg Neuts % (Manual) Lymphocytes % (Manual) Monocytes % (Manual) 10.0 H Eosinophils % (Manual) Basophils % (Manual) Nucleated RBC % 3.0 H Seg Neutrophils # Seg Neutrophils # Man Lymphocytes # (Manual) Monocytes # (Manual) 1.3 H Eosinophils # (Manual) Basophils # (Manual) PT 18.0 H INR 1.41 H Fibrinogen dRVVT Confirm Interp Factor V Activity POC ABG pH POC ABG pCO2 POC ABG pO2 ABG pO2 ABG HCO3 ABG Base Excess ABG Hemoglobin Oxyhemoglobin Sodium 135 L Potassium Chloride Carbon Dioxide 17 L BUN 81 H Creatinine 3.2 H Glucose 109 H POC Glucose Lactic Acid Calcium 7.4 L Phosphorus 4.60 H D Magnesium Direct Bilirubin AST ALT Alkaline Phosphatase Lactate Dehydrogenase Troponin T C-Reactive Protein Total Protein Albumin Prealbumin Triglycerides Cholesterol LDL Cholesterol Direct HDL Cholesterol Urine pH Urine WBC (Auto) Urine Creatinine Urine Total Protein Fluid Total Protein Vancomycin Trough Rheumatoid Factor Complement C4 Miscellaneous Test Crossmatch 10/09/16 10/09/16 10/09/16 03:45 05:14 07:20 WBC RBC Hgb Hct MCV MCH MCHC RDW Plt Count Lymph % (Auto) [place] % (Auto) Lymph # [place] # Baso # Seg Neutrophils % Seg Neuts % (Manual) Lymphocytes % (Manual) Monocytes % (Manual) Eosinophils % (Manual) Basophils % (Manual) Nucleated RBC % Seg Neutrophils # Seg Neutrophils # Man Lymphocytes # (Manual) Monocytes # (Manual) Eosinophils # (Manual) Basophils # (Manual) PT 19.0 H INR 1.51 H Fibrinogen dRVVT Confirm Interp Factor V Activity POC ABG pH POC ABG pCO2 POC ABG pO2 ABG pO2 ABG HCO3 ABG Base Excess ABG Hemoglobin Oxyhemoglobin Sodium Potassium Chloride Carbon Dioxide BUN Creatinine Glucose POC Glucose 151 H Lactic Acid Calcium Phosphorus Magnesium Direct Bilirubin AST ALT Alkaline Phosphatase Lactate Dehydrogenase Troponin T C-Reactive Protein Total Protein Albumin Prealbumin Triglycerides Cholesterol LDL Cholesterol Direct HDL Cholesterol Urine pH Urine WBC (Auto) Urine Creatinine Urine Total Protein Fluid Total Protein Vancomycin Trough Rheumatoid Factor Complement C4 Miscellaneous Test Crossmatch See Detail 10/09/16 10/09/16 10/09/16 11:46 16:20 16:43 WBC RBC Hgb 7.2 L Hct 22.2 L MCV MCH MCHC RDW Plt Count Lymph % (Auto) [place] % (Auto) Lymph # [place] # Baso # Seg Neutrophils % Seg Neuts % (Manual) Lymphocytes % (Manual) Monocytes % (Manual) Eosinophils % (Manual) Basophils % (Manual) Nucleated RBC % Seg Neutrophils # Seg Neutrophils # Man Lymphocytes # (Manual) Monocytes # (Manual) Eosinophils # (Manual) Basophils # (Manual) PT INR Fibrinogen dRVVT Confirm Interp Factor V Activity POC ABG pH POC ABG pCO2 POC ABG pO2 ABG pO2 ABG HCO3 ABG Base Excess ABG Hemoglobin Oxyhemoglobin Sodium Potassium Chloride Carbon Dioxide BUN Creatinine Glucose POC Glucose 133 H 141 H Lactic Acid Calcium Phosphorus Magnesium Direct Bilirubin AST ALT Alkaline Phosphatase Lactate Dehydrogenase Troponin T C-Reactive Protein Total Protein Albumin Prealbumin Triglycerides Cholesterol LDL Cholesterol Direct HDL Cholesterol Urine pH Urine WBC (Auto) Urine Creatinine Urine Total Protein Fluid Total Protein Vancomycin Trough Rheumatoid Factor Complement C4 Miscellaneous Test Crossmatch 10/10/16 10/10/16 10/10/16 05:00 05:00 11:19 WBC 18.5 H RBC 2.19 L Hgb 6.4 L Hct 19.6 L* MCV MCH MCHC RDW 19.3 H Plt Count 93 L Lymph % (Auto) [place] % (Auto) Lymph # [place] # Baso # Seg Neutrophils % Seg Neuts % (Manual) Lymphocytes % (Manual) 10.0 L Monocytes % (Manual) Eosinophils % (Manual) Basophils % (Manual) Nucleated RBC % 4.0 H Seg Neutrophils # Seg Neutrophils # Man 11.3 H Lymphocytes # (Manual) Monocytes # (Manual) Eosinophils # (Manual) Basophils # (Manual) PT INR Fibrinogen dRVVT Confirm Interp Factor V Activity POC ABG pH POC ABG pCO2 POC ABG pO2 ABG pO2 ABG HCO3 ABG Base Excess ABG Hemoglobin Oxyhemoglobin Sodium Potassium 5.7 H D Chloride Carbon Dioxide 16 L BUN 94 H Creatinine 3.1 H Glucose 131 H POC Glucose 153 H Lactic Acid Calcium 8.2 L Phosphorus 5.10 H Magnesium 2.40 H Direct Bilirubin 0.3 H AST ALT < 5 L Alkaline Phosphatase 319 H Lactate Dehydrogenase Troponin T C-Reactive Protein Total Protein 5.1 L Albumin 1.0 L Prealbumin Triglycerides Cholesterol LDL Cholesterol Direct HDL Cholesterol Urine pH Urine WBC (Auto) Urine Creatinine Urine Total Protein Fluid Total Protein Vancomycin Trough Rheumatoid Factor Complement C4 Miscellaneous Test Crossmatch 10/10/16 10/10/16 10/11/16 17:50 23:30 04:15 WBC RBC Hgb Hct MCV MCH MCHC RDW Plt Count Lymph % (Auto) [place] % (Auto) Lymph # [place] # Baso # Seg Neutrophils % Seg Neuts % (Manual) Lymphocytes % (Manual) Monocytes % (Manual) Eosinophils % (Manual) Basophils % (Manual) Nucleated RBC % Seg Neutrophils # Seg Neutrophils # Man Lymphocytes # (Manual) Monocytes # (Manual) Eosinophils # (Manual) Basophils # (Manual) PT INR Fibrinogen dRVVT Confirm Interp Factor V Activity POC ABG pH POC ABG pCO2 POC ABG pO2 ABG pO2 ABG HCO3 ABG Base Excess ABG Hemoglobin Oxyhemoglobin Sodium Potassium Chloride 96.4 L Carbon Dioxide 21 L BUN 57 H Creatinine 2.1 H Glucose 151 H POC Glucose 146 H 141 H Lactic Acid Calcium 8.3 L Phosphorus Magnesium Direct Bilirubin AST ALT Alkaline Phosphatase Lactate Dehydrogenase Troponin T C-Reactive Protein Total Protein Albumin Prealbumin Triglycerides Cholesterol LDL Cholesterol Direct HDL Cholesterol Urine pH Urine WBC (Auto) Urine Creatinine Urine Total Protein Fluid Total Protein Vancomycin Trough Rheumatoid Factor Complement C4 Miscellaneous Test Crossmatch 10/11/16 10/11/16 10/11/16 04:15 04:15 05:30 WBC 28.3 H RBC 3.12 L Hgb 9.3 L Hct 28.7 L D MCV MCH MCHC RDW 17.7 H Plt Count 128 L Lymph % (Auto) [place] % (Auto) Lymph # [place] # Baso # Seg Neutrophils % Seg Neuts % (Manual) Lymphocytes % (Manual) Monocytes % (Manual) Eosinophils % (Manual) Basophils % (Manual) Nucleated RBC % Seg Neutrophils # Seg Neutrophils # Man Lymphocytes # (Manual) Monocytes # (Manual) Eosinophils # (Manual) Basophils # (Manual) PT INR Fibrinogen dRVVT Confirm Interp Factor V Activity POC ABG pH POC ABG pCO2 POC ABG pO2 ABG pO2 ABG HCO3 ABG Base Excess ABG Hemoglobin Oxyhemoglobin Sodium Potassium Chloride Carbon Dioxide BUN Creatinine Glucose POC Glucose 167 H Lactic Acid Calcium Phosphorus Magnesium Direct Bilirubin AST ALT Alkaline Phosphatase Lactate Dehydrogenase Troponin T C-Reactive Protein 15.80 H Total Protein Albumin Prealbumin Triglycerides Cholesterol LDL Cholesterol Direct HDL Cholesterol Urine pH Urine WBC (Auto) Urine Creatinine Urine Total Protein Fluid Total Protein Vancomycin Trough Rheumatoid Factor Complement C4 Miscellaneous Test Crossmatch 10/11/16 10/11/16 10/11/16 11:40 15:49 23:57 WBC RBC Hgb Hct MCV MCH MCHC RDW Plt Count Lymph % (Auto) [place] % (Auto) Lymph # [place] # Baso # Seg Neutrophils % Seg Neuts % (Manual) Lymphocytes % (Manual) Monocytes % (Manual) Eosinophils % (Manual) Basophils % (Manual) Nucleated RBC % Seg Neutrophils # Seg Neutrophils # Man Lymphocytes # (Manual) Monocytes # (Manual) Eosinophils # (Manual) Basophils # (Manual) PT INR Fibrinogen dRVVT Confirm Interp Factor V Activity POC ABG pH POC ABG pCO2 POC ABG pO2 ABG pO2 ABG HCO3 ABG Base Excess ABG Hemoglobin Oxyhemoglobin Sodium Potassium Chloride Carbon Dioxide BUN Creatinine Glucose POC Glucose 139 H 168 H 161 H Lactic Acid Calcium Phosphorus Magnesium Direct Bilirubin AST ALT Alkaline Phosphatase Lactate Dehydrogenase Troponin T C-Reactive Protein Total Protein Albumin Prealbumin Triglycerides Cholesterol LDL Cholesterol Direct HDL Cholesterol Urine pH Urine WBC (Auto) Urine Creatinine Urine Total Protein Fluid Total Protein Vancomycin Trough Rheumatoid Factor Complement C4 Miscellaneous Test Crossmatch 10/12/16 10/12/16 10/12/16 04:40 04:40 05:44 WBC 22.5 H RBC 2.88 L Hgb 8.8 L Hct 26.8 L MCV MCH MCHC RDW 17.8 H Plt Count Lymph % (Auto) [place] % (Auto) Lymph # [place] # Baso # Seg Neutrophils % Seg Neuts % (Manual) Lymphocytes % (Manual) Monocytes % (Manual) Eosinophils % (Manual) Basophils % (Manual) Nucleated RBC % Seg Neutrophils # Seg Neutrophils # Man Lymphocytes # (Manual) Monocytes # (Manual) Eosinophils # (Manual) Basophils # (Manual) PT INR Fibrinogen dRVVT Confirm Interp Factor V Activity POC ABG pH POC ABG pCO2 POC ABG pO2 ABG pO2 ABG HCO3 ABG Base Excess ABG Hemoglobin Oxyhemoglobin Sodium 134 L Potassium Chloride 93.0 L Carbon Dioxide BUN 74 H Creatinine 2.5 H Glucose 137 H POC Glucose 158 H Lactic Acid Calcium 8.2 L Phosphorus Magnesium Direct Bilirubin AST ALT Alkaline Phosphatase Lactate Dehydrogenase Troponin T C-Reactive Protein Total Protein Albumin Prealbumin Triglycerides Cholesterol LDL Cholesterol Direct HDL Cholesterol Urine pH Urine WBC (Auto) Urine Creatinine Urine Total Protein Fluid Total Protein Vancomycin Trough Rheumatoid Factor Complement C4 Miscellaneous Test Crossmatch 10/12/16 10/12/16 10/12/16 12:27 18:18 23:46 WBC RBC Hgb Hct MCV MCH MCHC RDW Plt Count Lymph % (Auto) [place] % (Auto) Lymph # [place] # Baso # Seg Neutrophils % Seg Neuts % (Manual) Lymphocytes % (Manual) Monocytes % (Manual) Eosinophils % (Manual) Basophils % (Manual) Nucleated RBC % Seg Neutrophils # Seg Neutrophils # Man Lymphocytes # (Manual) Monocytes # (Manual) Eosinophils # (Manual) Basophils # (Manual) PT INR Fibrinogen dRVVT Confirm Interp Factor V Activity POC ABG pH POC ABG pCO2 POC ABG pO2 ABG pO2 ABG HCO3 ABG Base Excess ABG Hemoglobin Oxyhemoglobin Sodium Potassium Chloride Carbon Dioxide BUN Creatinine Glucose POC Glucose 153 H 140 H 150 H Lactic Acid Calcium Phosphorus Magnesium Direct Bilirubin AST ALT Alkaline Phosphatase Lactate Dehydrogenase Troponin T C-Reactive Protein Total Protein Albumin Prealbumin Triglycerides Cholesterol LDL Cholesterol Direct HDL Cholesterol Urine pH Urine WBC (Auto) Urine Creatinine Urine Total Protein Fluid Total Protein Vancomycin Trough Rheumatoid Factor Complement C4 Miscellaneous Test Crossmatch 10/13/16 10/13/16 10/13/16 06:22 09:20 12:29 WBC RBC Hgb Hct MCV MCH MCHC RDW Plt Count Lymph % (Auto) [place] % (Auto) Lymph # [place] # Baso # Seg Neutrophils % Seg Neuts % (Manual) Lymphocytes % (Manual) Monocytes % (Manual) Eosinophils % (Manual) Basophils % (Manual) Nucleated RBC % Seg Neutrophils # Seg Neutrophils # Man Lymphocytes # (Manual) Monocytes # (Manual) Eosinophils # (Manual) Basophils # (Manual) PT INR Fibrinogen dRVVT Confirm Interp Factor V Activity POC ABG pH POC ABG pCO2 POC ABG pO2 ABG pO2 ABG HCO3 ABG Base Excess ABG Hemoglobin Oxyhemoglobin Sodium Potassium Chloride Carbon Dioxide BUN Creatinine Glucose POC Glucose 165 H 193 H Lactic Acid Calcium Phosphorus Magnesium Direct Bilirubin AST ALT Alkaline Phosphatase Lactate Dehydrogenase Troponin T C-Reactive Protein Total Protein Albumin Prealbumin Triglycerides Cholesterol LDL Cholesterol Direct HDL Cholesterol Urine pH Urine WBC (Auto) Urine Creatinine Urine Total Protein Fluid Total Protein Vancomycin Trough Rheumatoid Factor Complement C4 Miscellaneous Test Flexitest 1 H Crossmatch 10/13/16 10/13/16 10/13/16 18:09 Unknown Unknown WBC 23.4 H RBC 2.83 L Hgb 8.7 L Hct 26.1 L MCV MCH MCHC RDW 18.1 H Plt Count Lymph % (Auto) [place] % (Auto) Lymph # [place] # Baso # Seg Neutrophils % Seg Neuts % (Manual) Lymphocytes % (Manual) Monocytes % (Manual) Eosinophils % (Manual) Basophils % (Manual) Nucleated RBC % Seg Neutrophils # Seg Neutrophils # Man Lymphocytes # (Manual) Monocytes # (Manual) Eosinophils # (Manual) Basophils # (Manual) PT INR Fibrinogen dRVVT Confirm Interp Factor V Activity POC ABG pH POC ABG pCO2 POC ABG pO2 ABG pO2 ABG HCO3 ABG Base Excess ABG Hemoglobin Oxyhemoglobin Sodium Potassium Chloride 95.8 L Carbon Dioxide BUN 82 H Creatinine 2.6 H Glucose 152 H POC Glucose 166 H Lactic Acid Calcium Phosphorus Magnesium Direct Bilirubin AST ALT Alkaline Phosphatase Lactate Dehydrogenase Troponin T C-Reactive Protein Total Protein Albumin Prealbumin Triglycerides Cholesterol LDL Cholesterol Direct HDL Cholesterol Urine pH Urine WBC (Auto) Urine Creatinine Urine Total Protein Fluid Total Protein Vancomycin Trough Rheumatoid Factor Complement C4 Miscellaneous Test Crossmatch 10/14/16 10/14/16 10/14/16 05:38 06:35 08:10 WBC 20.7 H RBC 2.81 L Hgb 8.4 L Hct 27.2 L MCV MCH MCHC RDW 19.4 H Plt Count Lymph % (Auto) [place] % (Auto) Lymph # [place] # Baso # Seg Neutrophils % Seg Neuts % (Manual) Lymphocytes % (Manual) Monocytes % (Manual) Eosinophils % (Manual) Basophils % (Manual) Nucleated RBC % Seg Neutrophils # Seg Neutrophils # Man Lymphocytes # (Manual) Monocytes # (Manual) Eosinophils # (Manual) Basophils # (Manual) PT INR Fibrinogen dRVVT Confirm Interp Factor V Activity POC ABG pH POC ABG pCO2 POC ABG pO2 ABG pO2 ABG HCO3 ABG Base Excess ABG Hemoglobin Oxyhemoglobin Sodium Potassium Chloride Carbon Dioxide BUN 58 H Creatinine 1.9 H Glucose 169 H POC Glucose 195 H Lactic Acid Calcium Phosphorus Magnesium Direct Bilirubin AST ALT Alkaline Phosphatase Lactate Dehydrogenase Troponin T C-Reactive Protein Total Protein Albumin Prealbumin Triglycerides Cholesterol LDL Cholesterol Direct HDL Cholesterol Urine pH Urine WBC (Auto) Urine Creatinine Urine Total Protein Fluid Total Protein Vancomycin Trough Rheumatoid Factor Complement C4 Miscellaneous Test Crossmatch 10/14/16 10/14/16 10/14/16 11:44 17:13 23:28 WBC RBC Hgb Hct MCV MCH MCHC RDW Plt Count Lymph % (Auto) [place] % (Auto) Lymph # [place] # Baso # Seg Neutrophils % Seg Neuts % (Manual) Lymphocytes % (Manual) Monocytes % (Manual) Eosinophils % (Manual) Basophils % (Manual) Nucleated RBC % Seg Neutrophils # Seg Neutrophils # Man Lymphocytes # (Manual) Monocytes # (Manual) Eosinophils # (Manual) Basophils # (Manual) PT INR Fibrinogen dRVVT Confirm Interp Factor V Activity POC ABG pH POC ABG pCO2 POC ABG pO2 ABG pO2 ABG HCO3 ABG Base Excess ABG Hemoglobin Oxyhemoglobin Sodium Potassium Chloride Carbon Dioxide BUN Creatinine Glucose POC Glucose 174 H 121 H 151 H Lactic Acid Calcium Phosphorus Magnesium Direct Bilirubin AST ALT Alkaline Phosphatase Lactate Dehydrogenase Troponin T C-Reactive Protein Total Protein Albumin Prealbumin Triglycerides Cholesterol LDL Cholesterol Direct HDL Cholesterol Urine pH Urine WBC (Auto) Urine Creatinine Urine Total Protein Fluid Total Protein Vancomycin Trough Rheumatoid Factor Complement C4 Miscellaneous Test Crossmatch 10/15/16 10/15/16 10/15/16 05:06 12:26 17:48 WBC RBC Hgb Hct MCV MCH MCHC RDW Plt Count Lymph % (Auto) [place] % (Auto) Lymph # [place] # Baso # Seg Neutrophils % Seg Neuts % (Manual) Lymphocytes % (Manual) Monocytes % (Manual) Eosinophils % (Manual) Basophils % (Manual) Nucleated RBC % Seg Neutrophils # Seg Neutrophils # Man Lymphocytes # (Manual) Monocytes # (Manual) Eosinophils # (Manual) Basophils # (Manual) PT INR Fibrinogen dRVVT Confirm Interp Factor V Activity POC ABG pH POC ABG pCO2 POC ABG pO2 ABG pO2 ABG HCO3 ABG Base Excess ABG Hemoglobin Oxyhemoglobin Sodium Potassium Chloride Carbon Dioxide BUN Creatinine Glucose POC Glucose 151 H 149 H 153 H Lactic Acid Calcium Phosphorus Magnesium Direct Bilirubin AST ALT Alkaline Phosphatase Lactate Dehydrogenase Troponin T C-Reactive Protein Total Protein Albumin Prealbumin Triglycerides Cholesterol LDL Cholesterol Direct HDL Cholesterol Urine pH Urine WBC (Auto) Urine Creatinine Urine Total Protein Fluid Total Protein Vancomycin Trough Rheumatoid Factor Complement C4 Miscellaneous Test Crossmatch 10/15/16 10/15/16 10/16/16 Unknown Unknown 00:02 WBC 23.4 H RBC 2.78 L Hgb 8.5 L Hct 25.7 L MCV MCH MCHC RDW 18.7 H Plt Count Lymph % (Auto) [place] % (Auto) Lymph # [place] # Baso # Seg Neutrophils % Seg Neuts % (Manual) Lymphocytes % (Manual) Monocytes % (Manual) Eosinophils % (Manual) Basophils % (Manual) Nucleated RBC % Seg Neutrophils # Seg Neutrophils # Man Lymphocytes # (Manual) Monocytes # (Manual) Eosinophils # (Manual) Basophils # (Manual) PT INR Fibrinogen dRVVT Confirm Interp Factor V Activity POC ABG pH POC ABG pCO2 POC ABG pO2 ABG pO2 ABG HCO3 ABG Base Excess ABG Hemoglobin Oxyhemoglobin Sodium Potassium Chloride Carbon Dioxide BUN 73 H Creatinine 2.3 H Glucose 120 H POC Glucose 137 H Lactic Acid Calcium Phosphorus Magnesium Direct Bilirubin AST ALT Alkaline Phosphatase Lactate Dehydrogenase Troponin T C-Reactive Protein Total Protein Albumin Prealbumin Triglycerides Cholesterol LDL Cholesterol Direct HDL Cholesterol Urine pH Urine WBC (Auto) Urine Creatinine Urine Total Protein Fluid Total Protein Vancomycin Trough Rheumatoid Factor Complement C4 Miscellaneous Test Crossmatch 10/16/16 10/16/16 10/16/16 05:44 06:25 06:25 WBC 22.5 H RBC 2.76 L Hgb 8.3 L Hct 25.2 L MCV MCH MCHC RDW 18.3 H Plt Count Lymph % (Auto) [place] % (Auto) Lymph # [place] # Baso # Seg Neutrophils % Seg Neuts % (Manual) Lymphocytes % (Manual) Monocytes % (Manual) Eosinophils % (Manual) Basophils % (Manual) Nucleated RBC % Seg Neutrophils # Seg Neutrophils # Man Lymphocytes # (Manual) Monocytes # (Manual) Eosinophils # (Manual) Basophils # (Manual) PT INR Fibrinogen dRVVT Confirm Interp Factor V Activity POC ABG pH POC ABG pCO2 POC ABG pO2 ABG pO2 ABG HCO3 ABG Base Excess ABG Hemoglobin Oxyhemoglobin Sodium Potassium Chloride Carbon Dioxide BUN 92 H Creatinine 3.0 H Glucose 138 H POC Glucose 110 H Lactic Acid Calcium Phosphorus Magnesium Direct Bilirubin AST ALT Alkaline Phosphatase Lactate Dehydrogenase Troponin T C-Reactive Protein Total Protein Albumin Prealbumin Triglycerides Cholesterol LDL Cholesterol Direct HDL Cholesterol Urine pH Urine WBC (Auto) Urine Creatinine Urine Total Protein Fluid Total Protein Vancomycin Trough Rheumatoid Factor Complement C4 Miscellaneous Test Crossmatch 10/16/16 10/16/16 10/16/16 11:27 11:48 17:36 WBC RBC Hgb Hct MCV MCH MCHC RDW Plt Count Lymph % (Auto) [place] % (Auto) Lymph # [place] # Baso # Seg Neutrophils % Seg Neuts % (Manual) Lymphocytes % (Manual) Monocytes % (Manual) Eosinophils % (Manual) Basophils % (Manual) Nucleated RBC % Seg Neutrophils # Seg Neutrophils # Man Lymphocytes # (Manual) Monocytes # (Manual) Eosinophils # (Manual) Basophils # (Manual) PT INR Fibrinogen dRVVT Confirm Interp Factor V Activity POC ABG pH 7.582 H POC ABG pCO2 27.4 L POC ABG pO2 110 H ABG pO2 ABG HCO3 ABG Base Excess ABG Hemoglobin Oxyhemoglobin Sodium Potassium Chloride Carbon Dioxide BUN Creatinine Glucose POC Glucose 121 H 133 H Lactic Acid Calcium Phosphorus Magnesium Direct Bilirubin AST ALT Alkaline Phosphatase Lactate Dehydrogenase Troponin T C-Reactive Protein Total Protein Albumin Prealbumin Triglycerides Cholesterol LDL Cholesterol Direct HDL Cholesterol Urine pH Urine WBC (Auto) Urine Creatinine Urine Total Protein Fluid Total Protein Vancomycin Trough Rheumatoid Factor Complement C4 Miscellaneous Test Crossmatch 10/16/16 10/17/16 10/17/16 20:48 04:24 04:24 WBC 21.4 H RBC 2.72 L Hgb 8.0 L Hct 25.2 L MCV MCH MCHC RDW 18.0 H Plt Count Lymph % (Auto) [place] % (Auto) Lymph # [place] # Baso # Seg Neutrophils % Seg Neuts % (Manual) Lymphocytes % (Manual) Monocytes % (Manual) Eosinophils % (Manual) Basophils % (Manual) Nucleated RBC % Seg Neutrophils # Seg Neutrophils # Man Lymphocytes # (Manual) Monocytes # (Manual) Eosinophils # (Manual) Basophils # (Manual) PT INR Fibrinogen dRVVT Confirm Interp Factor V Activity POC ABG pH 7.561 H POC ABG pCO2 24.4 L POC ABG pO2 77 L ABG pO2 ABG HCO3 ABG Base Excess ABG Hemoglobin Oxyhemoglobin Sodium 148 H Potassium Chloride Carbon Dioxide BUN 104 H Creatinine 3.0 H Glucose 149 H POC Glucose Lactic Acid Calcium Phosphorus Magnesium Direct Bilirubin AST ALT Alkaline Phosphatase 138 H Lactate Dehydrogenase Troponin T C-Reactive Protein Total Protein 6.2 L Albumin 1.5 L Prealbumin Triglycerides Cholesterol LDL Cholesterol Direct HDL Cholesterol Urine pH Urine WBC (Auto) Urine Creatinine Urine Total Protein Fluid Total Protein Vancomycin Trough Rheumatoid Factor Complement C4 Miscellaneous Test Crossmatch 10/17/16 10/17/16 10/17/16 06:02 12:17 17:14 WBC RBC Hgb Hct MCV MCH MCHC RDW Plt Count Lymph % (Auto) [place] % (Auto) Lymph # [place] # Baso # Seg Neutrophils % Seg Neuts % (Manual) Lymphocytes % (Manual) Monocytes % (Manual) Eosinophils % (Manual) Basophils % (Manual) Nucleated RBC % Seg Neutrophils # Seg Neutrophils # Man Lymphocytes # (Manual) Monocytes # (Manual) Eosinophils # (Manual) Basophils # (Manual) PT INR Fibrinogen dRVVT Confirm Interp Factor V Activity POC ABG pH POC ABG pCO2 POC ABG pO2 ABG pO2 ABG HCO3 ABG Base Excess ABG Hemoglobin Oxyhemoglobin Sodium Potassium Chloride Carbon Dioxide BUN Creatinine Glucose POC Glucose 170 H 167 H 126 H Lactic Acid Calcium Phosphorus Magnesium Direct Bilirubin AST ALT Alkaline Phosphatase Lactate Dehydrogenase Troponin T C-Reactive Protein Total Protein Albumin Prealbumin Triglycerides Cholesterol LDL Cholesterol Direct HDL Cholesterol Urine pH Urine WBC (Auto) Urine Creatinine Urine Total Protein Fluid Total Protein Vancomycin Trough Rheumatoid Factor Complement C4 Miscellaneous Test Crossmatch 10/17/16 10/18/16 10/18/16 23:17 04:00 04:00 WBC 20.7 H RBC 2.47 L Hgb 7.4 L Hct 22.9 L MCV MCH MCHC RDW 17.5 H Plt Count Lymph % (Auto) [place] % (Auto) Lymph # [place] # Baso # Seg Neutrophils % Seg Neuts % (Manual) Lymphocytes % (Manual) Monocytes % (Manual) Eosinophils % (Manual) Basophils % (Manual) Nucleated RBC % Seg Neutrophils # Seg Neutrophils # Man Lymphocytes # (Manual) Monocytes # (Manual) Eosinophils # (Manual) Basophils # (Manual) PT INR Fibrinogen dRVVT Confirm Interp Factor V Activity POC ABG pH POC ABG pCO2 POC ABG pO2 ABG pO2 ABG HCO3 ABG Base Excess ABG Hemoglobin Oxyhemoglobin Sodium 149 H Potassium Chloride 107.9 H Carbon Dioxide 20 L BUN 117 H Creatinine 3.2 H Glucose 119 H POC Glucose 121 H Lactic Acid Calcium Phosphorus Magnesium Direct Bilirubin AST ALT Alkaline Phosphatase Lactate Dehydrogenase Troponin T C-Reactive Protein Total Protein Albumin Prealbumin Triglycerides Cholesterol LDL Cholesterol Direct HDL Cholesterol Urine pH Urine WBC (Auto) Urine Creatinine Urine Total Protein Fluid Total Protein Vancomycin Trough Rheumatoid Factor Complement C4 Miscellaneous Test Crossmatch 10/18/16 10/18/16 10/18/16 05:23 10:46 17:30 WBC RBC Hgb Hct MCV MCH MCHC RDW Plt Count Lymph % (Auto) [place] % (Auto) Lymph # [place] # Baso # Seg Neutrophils % Seg Neuts % (Manual) Lymphocytes % (Manual) Monocytes % (Manual) Eosinophils % (Manual) Basophils % (Manual) Nucleated RBC % Seg Neutrophils # Seg Neutrophils # Man Lymphocytes # (Manual) Monocytes # (Manual) Eosinophils # (Manual) Basophils # (Manual) PT INR Fibrinogen dRVVT Confirm Interp Factor V Activity POC ABG pH POC ABG pCO2 POC ABG pO2 ABG pO2 ABG HCO3 ABG Base Excess ABG Hemoglobin Oxyhemoglobin Sodium Potassium Chloride Carbon Dioxide BUN Creatinine Glucose POC Glucose 119 H 155 H 124 H Lactic Acid Calcium Phosphorus Magnesium Direct Bilirubin AST ALT Alkaline Phosphatase Lactate Dehydrogenase Troponin T C-Reactive Protein Total Protein Albumin Prealbumin Triglycerides Cholesterol LDL Cholesterol Direct HDL Cholesterol Urine pH Urine WBC (Auto) Urine Creatinine Urine Total Protein Fluid Total Protein Vancomycin Trough Rheumatoid Factor Complement C4 Miscellaneous Test Crossmatch 10/19/16 10/19/16 10/19/16 04:00 04:00 05:25 WBC 17.4 H RBC 2.54 L Hgb 7.7 L Hct 23.6 L MCV MCH MCHC RDW 17.3 H Plt Count Lymph % (Auto) [place] % (Auto) Lymph # [place] # Baso # Seg Neutrophils % Seg Neuts % (Manual) Lymphocytes % (Manual) Monocytes % (Manual) Eosinophils % (Manual) Basophils % (Manual) Nucleated RBC % Seg Neutrophils # Seg Neutrophils # Man Lymphocytes # (Manual) Monocytes # (Manual) Eosinophils # (Manual) Basophils # (Manual) PT INR Fibrinogen dRVVT Confirm Interp Factor V Activity POC ABG pH POC ABG pCO2 POC ABG pO2 ABG pO2 ABG HCO3 ABG Base Excess ABG Hemoglobin Oxyhemoglobin Sodium Potassium Chloride Carbon Dioxide BUN 72 H Creatinine 2.1 H Glucose 116 H POC Glucose 119 H Lactic Acid Calcium Phosphorus Magnesium Direct Bilirubin AST ALT Alkaline Phosphatase Lactate Dehydrogenase Troponin T C-Reactive Protein Total Protein Albumin Prealbumin Triglycerides Cholesterol LDL Cholesterol Direct HDL Cholesterol Urine pH Urine WBC (Auto) Urine Creatinine Urine Total Protein Fluid Total Protein Vancomycin Trough Rheumatoid Factor Complement C4 Miscellaneous Test Crossmatch 10/19/16 10/19/16 10/20/16 11:46 23:59 06:00 WBC RBC Hgb Hct MCV MCH MCHC RDW Plt Count Lymph % (Auto) [place] % (Auto) Lymph # [place] # Baso # Seg Neutrophils % Seg Neuts % (Manual) Lymphocytes % (Manual) Monocytes % (Manual) Eosinophils % (Manual) Basophils % (Manual) Nucleated RBC % Seg Neutrophils # Seg Neutrophils # Man Lymphocytes # (Manual) Monocytes # (Manual) Eosinophils # (Manual) Basophils # (Manual) PT INR Fibrinogen dRVVT Confirm Interp Factor V Activity POC ABG pH POC ABG pCO2 POC ABG pO2 ABG pO2 ABG HCO3 ABG Base Excess ABG Hemoglobin Oxyhemoglobin Sodium Potassium Chloride Carbon Dioxide 17 L BUN 94 H Creatinine 2.7 H Glucose POC Glucose 116 H 117 H Lactic Acid Calcium Phosphorus Magnesium Direct Bilirubin AST ALT Alkaline Phosphatase Lactate Dehydrogenase Troponin T C-Reactive Protein Total Protein Albumin Prealbumin Triglycerides Cholesterol LDL Cholesterol Direct HDL Cholesterol Urine pH Urine WBC (Auto) Urine Creatinine Urine Total Protein Fluid Total Protein Vancomycin Trough Rheumatoid Factor Complement C4 Miscellaneous Test Crossmatch 10/20/16 10/20/16 10/20/16 06:00 11:49 16:00 WBC 19.7 H RBC 2.51 L Hgb 7.7 L Hct 23.5 L MCV MCH MCHC RDW 17.5 H Plt Count Lymph % (Auto) [place] % (Auto) Lymph # [place] # Baso # Seg Neutrophils % Seg Neuts % (Manual) Lymphocytes % (Manual) Monocytes % (Manual) Eosinophils % (Manual) Basophils % (Manual) Nucleated RBC % Seg Neutrophils # Seg Neutrophils # Man Lymphocytes # (Manual) Monocytes # (Manual) Eosinophils # (Manual) Basophils # (Manual) PT INR Fibrinogen dRVVT Confirm Interp Factor V Activity POC ABG pH POC ABG pCO2 POC ABG pO2 ABG pO2 ABG HCO3 ABG Base Excess ABG Hemoglobin Oxyhemoglobin Sodium Potassium Chloride Carbon Dioxide BUN Creatinine Glucose POC Glucose 117 H Lactic Acid Calcium Phosphorus Magnesium Direct Bilirubin AST ALT Alkaline Phosphatase Lactate Dehydrogenase Troponin T C-Reactive Protein Total Protein Albumin Prealbumin Triglycerides Cholesterol LDL Cholesterol Direct HDL Cholesterol Urine pH Urine WBC (Auto) Urine Creatinine Urine Total Protein Fluid Total Protein Vancomycin Trough Rheumatoid Factor Complement C4 Miscellaneous Test Flexitest 1 H Crossmatch 10/20/16 10/20/16 10/21/16 18:36 23:39 04:00 WBC RBC Hgb Hct MCV MCH MCHC RDW Plt Count Lymph % (Auto) [place] % (Auto) Lymph # [place] # Baso # Seg Neutrophils % Seg Neuts % (Manual) Lymphocytes % (Manual) Monocytes % (Manual) Eosinophils % (Manual) Basophils % (Manual) Nucleated RBC % Seg Neutrophils # Seg Neutrophils # Man Lymphocytes # (Manual) Monocytes # (Manual) Eosinophils # (Manual) Basophils # (Manual) PT INR Fibrinogen dRVVT Confirm Interp Factor V Activity POC ABG pH POC ABG pCO2 POC ABG pO2 ABG pO2 ABG HCO3 ABG Base Excess ABG Hemoglobin Oxyhemoglobin Sodium Potassium 5.4 H D Chloride Carbon Dioxide 15 L BUN 110 H Creatinine 3.0 H Glucose POC Glucose 127 H 114 H Lactic Acid Calcium Phosphorus Magnesium Direct Bilirubin AST ALT Alkaline Phosphatase Lactate Dehydrogenase Troponin T C-Reactive Protein Total Protein Albumin Prealbumin Triglycerides Cholesterol LDL Cholesterol Direct HDL Cholesterol Urine pH Urine WBC (Auto) Urine Creatinine Urine Total Protein Fluid Total Protein Vancomycin Trough Rheumatoid Factor Complement C4 Miscellaneous Test Crossmatch 10/21/16 10/21/16 10/22/16 05:54 23:46 05:18 WBC RBC Hgb Hct MCV MCH MCHC RDW Plt Count Lymph % (Auto) [place] % (Auto) Lymph # [place] # Baso # Seg Neutrophils % Seg Neuts % (Manual) Lymphocytes % (Manual) Monocytes % (Manual) Eosinophils % (Manual) Basophils % (Manual) Nucleated RBC % Seg Neutrophils # Seg Neutrophils # Man Lymphocytes # (Manual) Monocytes # (Manual) Eosinophils # (Manual) Basophils # (Manual) PT INR Fibrinogen dRVVT Confirm Interp Factor V Activity POC ABG pH POC ABG pCO2 POC ABG pO2 ABG pO2 ABG HCO3 ABG Base Excess ABG Hemoglobin Oxyhemoglobin Sodium Potassium Chloride Carbon Dioxide BUN Creatinine Glucose POC Glucose 119 H 108 H 109 H Lactic Acid Calcium Phosphorus Magnesium Direct Bilirubin AST ALT Alkaline Phosphatase Lactate Dehydrogenase Troponin T C-Reactive Protein Total Protein Albumin Prealbumin Triglycerides Cholesterol LDL Cholesterol Direct HDL Cholesterol Urine pH Urine WBC (Auto) Urine Creatinine Urine Total Protein Fluid Total Protein Vancomycin Trough Rheumatoid Factor Complement C4 Miscellaneous Test Crossmatch 10/22/16 10/22/16 10/22/16 06:40 06:40 06:40 WBC 14.0 H RBC 2.03 L Hgb 7.0 L Hct 20.5 L MCV 98 H MCH 34 H MCHC 35 H RDW 17.8 H Plt Count Lymph % (Auto) [place] % (Auto) 9.9 H Lymph # [place] # 1.4 H Baso # 0.2 H Seg Neutrophils % 72.0 H Seg Neuts % (Manual) Lymphocytes % (Manual) Monocytes % (Manual) Eosinophils % (Manual) Basophils % (Manual) Nucleated RBC % Seg Neutrophils # 10.0 H Seg Neutrophils # Man Lymphocytes # (Manual) Monocytes # (Manual) Eosinophils # (Manual) Basophils # (Manual) PT INR Fibrinogen dRVVT Confirm Interp Factor V Activity POC ABG pH POC ABG pCO2 POC ABG pO2 ABG pO2 ABG HCO3 ABG Base Excess ABG Hemoglobin Oxyhemoglobin Sodium 130 L D Potassium Chloride 92.4 L Carbon Dioxide 20 L BUN 50 H Creatinine 1.6 H Glucose 589 H* POC Glucose Lactic Acid Calcium 7.8 L D Phosphorus Magnesium 1.60 L Direct Bilirubin AST ALT Alkaline Phosphatase Lactate Dehydrogenase Troponin T C-Reactive Protein Total Protein Albumin Prealbumin Triglycerides Cholesterol LDL Cholesterol Direct HDL Cholesterol Urine pH Urine WBC (Auto) Urine Creatinine Urine Total Protein Fluid Total Protein Vancomycin Trough Rheumatoid Factor Complement C4 Miscellaneous Test Crossmatch 10/22/16 10/22/16 10/22/16 11:39 16:44 23:36 WBC RBC Hgb Hct MCV MCH MCHC RDW Plt Count Lymph % (Auto) [place] % (Auto) Lymph # [place] # Baso # Seg Neutrophils % Seg Neuts % (Manual) Lymphocytes % (Manual) Monocytes % (Manual) Eosinophils % (Manual) Basophils % (Manual) Nucleated RBC % Seg Neutrophils # Seg Neutrophils # Man Lymphocytes # (Manual) Monocytes # (Manual) Eosinophils # (Manual) Basophils # (Manual) PT INR Fibrinogen dRVVT Confirm Interp Factor V Activity POC ABG pH POC ABG pCO2 POC ABG pO2 ABG pO2 ABG HCO3 ABG Base Excess ABG Hemoglobin Oxyhemoglobin Sodium Potassium Chloride Carbon Dioxide BUN Creatinine Glucose POC Glucose 142 H 163 H 123 H Lactic Acid Calcium Phosphorus Magnesium Direct Bilirubin AST ALT Alkaline Phosphatase Lactate Dehydrogenase Troponin T C-Reactive Protein Total Protein Albumin Prealbumin Triglycerides Cholesterol LDL Cholesterol Direct HDL Cholesterol Urine pH Urine WBC (Auto) Urine Creatinine Urine Total Protein Fluid Total Protein Vancomycin Trough Rheumatoid Factor Complement C4 Miscellaneous Test Crossmatch 10/23/16 10/23/16 10/23/16 04:58 06:00 12:12 WBC RBC Hgb Hct MCV MCH MCHC RDW Plt Count Lymph % (Auto) [place] % (Auto) Lymph # [place] # Baso # Seg Neutrophils % Seg Neuts % (Manual) Lymphocytes % (Manual) Monocytes % (Manual) Eosinophils % (Manual) Basophils % (Manual) Nucleated RBC % Seg Neutrophils # Seg Neutrophils # Man Lymphocytes # (Manual) Monocytes # (Manual) Eosinophils # (Manual) Basophils # (Manual) PT INR Fibrinogen dRVVT Confirm Interp Factor V Activity POC ABG pH POC ABG pCO2 POC ABG pO2 ABG pO2 ABG HCO3 ABG Base Excess ABG Hemoglobin Oxyhemoglobin Sodium 133 L Potassium 3.5 L Chloride 96.1 L Carbon Dioxide 18 L BUN 76 H Creatinine 2.1 H Glucose POC Glucose 133 H 138 H Lactic Acid Calcium 8.3 L Phosphorus Magnesium Direct Bilirubin AST ALT Alkaline Phosphatase Lactate Dehydrogenase Troponin T C-Reactive Protein Total Protein Albumin Prealbumin Triglycerides Cholesterol LDL Cholesterol Direct HDL Cholesterol Urine pH Urine WBC (Auto) Urine Creatinine Urine Total Protein Fluid Total Protein Vancomycin Trough Rheumatoid Factor Complement C4 Miscellaneous Test Crossmatch 10/23/16 10/23/16 10/24/16 16:53 23:37 04:00 WBC RBC Hgb Hct MCV MCH MCHC RDW Plt Count Lymph % (Auto) [place] % (Auto) Lymph # [place] # Baso # Seg Neutrophils % Seg Neuts % (Manual) Lymphocytes % (Manual) Monocytes % (Manual) Eosinophils % (Manual) Basophils % (Manual) Nucleated RBC % Seg Neutrophils # Seg Neutrophils # Man Lymphocytes # (Manual) Monocytes # (Manual) Eosinophils # (Manual) Basophils # (Manual) PT INR Fibrinogen dRVVT Confirm Interp Factor V Activity POC ABG pH POC ABG pCO2 POC ABG pO2 ABG pO2 ABG HCO3 ABG Base Excess ABG Hemoglobin Oxyhemoglobin Sodium 131 L Potassium Chloride 94.5 L Carbon Dioxide 19 L BUN 97 H Creatinine 2.6 H Glucose 110 H POC Glucose 125 H 123 H Lactic Acid Calcium 8.3 L Phosphorus Magnesium Direct Bilirubin AST ALT Alkaline Phosphatase Lactate Dehydrogenase Troponin T C-Reactive Protein Total Protein Albumin Prealbumin Triglycerides Cholesterol LDL Cholesterol Direct HDL Cholesterol Urine pH Urine WBC (Auto) Urine Creatinine Urine Total Protein Fluid Total Protein Vancomycin Trough Rheumatoid Factor Complement C4 Miscellaneous Test Crossmatch 10/24/16 10/24/16 10/24/16 07:49 11:39 17:52 WBC RBC Hgb 6.0 L Hct 19.7 L* MCV MCH MCHC RDW Plt Count Lymph % (Auto) [place] % (Auto) Lymph # [place] # Baso # Seg Neutrophils % Seg Neuts % (Manual) Lymphocytes % (Manual) Monocytes % (Manual) Eosinophils % (Manual) Basophils % (Manual) Nucleated RBC % Seg Neutrophils # Seg Neutrophils # Man Lymphocytes # (Manual) Monocytes # (Manual) Eosinophils # (Manual) Basophils # (Manual) PT INR Fibrinogen dRVVT Confirm Interp Factor V Activity POC ABG pH POC ABG pCO2 POC ABG pO2 ABG pO2 ABG HCO3 ABG Base Excess ABG Hemoglobin Oxyhemoglobin Sodium Potassium Chloride Carbon Dioxide BUN Creatinine Glucose POC Glucose 106 H 158 H Lactic Acid Calcium Phosphorus Magnesium Direct Bilirubin AST ALT Alkaline Phosphatase Lactate Dehydrogenase Troponin T C-Reactive Protein Total Protein Albumin Prealbumin Triglycerides Cholesterol LDL Cholesterol Direct HDL Cholesterol Urine pH Urine WBC (Auto) Urine Creatinine Urine Total Protein Fluid Total Protein Vancomycin Trough Rheumatoid Factor Complement C4 Miscellaneous Test Crossmatch 10/24/16 10/24/16 10/24/16 20:00 22:27 Unknown WBC RBC Hgb 9.4 L D Hct 27.5 L D MCV MCH MCHC RDW Plt Count Lymph % (Auto) [place] % (Auto) Lymph # [place] # Baso # Seg Neutrophils % Seg Neuts % (Manual) Lymphocytes % (Manual) Monocytes % (Manual) Eosinophils % (Manual) Basophils % (Manual) Nucleated RBC % Seg Neutrophils # Seg Neutrophils # Man Lymphocytes # (Manual) Monocytes # (Manual) Eosinophils # (Manual) Basophils # (Manual) PT INR Fibrinogen dRVVT Confirm Interp Factor V Activity POC ABG pH POC ABG pCO2 POC ABG pO2 ABG pO2 ABG HCO3 ABG Base Excess ABG Hemoglobin Oxyhemoglobin Sodium Potassium Chloride Carbon Dioxide BUN Creatinine Glucose POC Glucose 125 H Lactic Acid Calcium Phosphorus Magnesium Direct Bilirubin AST ALT Alkaline Phosphatase Lactate Dehydrogenase Troponin T C-Reactive Protein Total Protein Albumin Prealbumin Triglycerides Cholesterol LDL Cholesterol Direct HDL Cholesterol Urine pH Urine WBC (Auto) Urine Creatinine Urine Total Protein Fluid Total Protein Vancomycin Trough Rheumatoid Factor Complement C4 Miscellaneous Test Crossmatch See Detail 10/25/16 10/25/16 10/25/16 04:00 04:00 04:00 WBC 14.2 H RBC 2.98 L Hgb 9.0 L Hct 26.2 L MCV MCH MCHC RDW 16.6 H Plt Count Lymph % (Auto) [place] % (Auto) 10.7 H Lymph # [place] # 1.5 H Baso # Seg Neutrophils % 73.6 H Seg Neuts % (Manual) Lymphocytes % (Manual) Monocytes % (Manual) Eosinophils % (Manual) Basophils % (Manual) Nucleated RBC % Seg Neutrophils # 10.5 H Seg Neutrophils # Man Lymphocytes # (Manual) Monocytes # (Manual) Eosinophils # (Manual) Basophils # (Manual) PT INR Fibrinogen dRVVT Confirm Interp Factor V Activity POC ABG pH POC ABG pCO2 POC ABG pO2 ABG pO2 ABG HCO3 ABG Base Excess ABG Hemoglobin Oxyhemoglobin Sodium 132 L Potassium Chloride 94.7 L Carbon Dioxide BUN 51 H Creatinine 1.6 H Glucose 130 H POC Glucose Lactic Acid Calcium 8.3 L Phosphorus 1.60 L D Magnesium Direct Bilirubin AST ALT Alkaline Phosphatase Lactate Dehydrogenase Troponin T C-Reactive Protein Total Protein Albumin Prealbumin Triglycerides Cholesterol LDL Cholesterol Direct HDL Cholesterol Urine pH Urine WBC (Auto) Urine Creatinine Urine Total Protein Fluid Total Protein Vancomycin Trough Rheumatoid Factor Complement C4 Miscellaneous Test Crossmatch 10/25/16 10/25/16 10/25/16 04:32 11:48 17:22 WBC RBC Hgb Hct MCV MCH MCHC RDW Plt Count Lymph % (Auto) [place] % (Auto) Lymph # [place] # Baso # Seg Neutrophils % Seg Neuts % (Manual) Lymphocytes % (Manual) Monocytes % (Manual) Eosinophils % (Manual) Basophils % (Manual) Nucleated RBC % Seg Neutrophils # Seg Neutrophils # Man Lymphocytes # (Manual) Monocytes # (Manual) Eosinophils # (Manual) Basophils # (Manual) PT INR Fibrinogen dRVVT Confirm Interp Factor V Activity POC ABG pH POC ABG pCO2 POC ABG pO2 ABG pO2 ABG HCO3 ABG Base Excess ABG Hemoglobin Oxyhemoglobin Sodium Potassium Chloride Carbon Dioxide BUN Creatinine Glucose POC Glucose 124 H 171 H 120 H Lactic Acid Calcium Phosphorus Magnesium Direct Bilirubin AST ALT Alkaline Phosphatase Lactate Dehydrogenase Troponin T C-Reactive Protein Total Protein Albumin Prealbumin Triglycerides Cholesterol LDL Cholesterol Direct HDL Cholesterol Urine pH Urine WBC (Auto) Urine Creatinine Urine Total Protein Fluid Total Protein Vancomycin Trough Rheumatoid Factor Complement C4 Miscellaneous Test Crossmatch 10/26/16 10/26/16 10/26/16 04:54 07:06 07:06 WBC 16.9 H RBC 3.06 L Hgb 9.1 L Hct 26.9 L MCV MCH MCHC RDW 16.9 H Plt Count Lymph % (Auto) [place] % (Auto) Lymph # [place] # Baso # Seg Neutrophils % Seg Neuts % (Manual) 71.0 H Lymphocytes % (Manual) 5.0 L Monocytes % (Manual) 12.0 H Eosinophils % (Manual) Basophils % (Manual) Nucleated RBC % Seg Neutrophils # Seg Neutrophils # Man 12.0 H Lymphocytes # (Manual) 0.8 L Monocytes # (Manual) 2.0 H Eosinophils # (Manual) Basophils # (Manual) PT INR Fibrinogen dRVVT Confirm Interp Factor V Activity POC ABG pH POC ABG pCO2 POC ABG pO2 ABG pO2 ABG HCO3 ABG Base Excess ABG Hemoglobin Oxyhemoglobin Sodium 135 L Potassium Chloride 97.1 L Carbon Dioxide BUN 73 H Creatinine 2.2 H Glucose 117 H POC Glucose 123 H Lactic Acid Calcium Phosphorus 1.70 L Magnesium Direct Bilirubin AST ALT Alkaline Phosphatase Lactate Dehydrogenase Troponin T C-Reactive Protein Total Protein Albumin Prealbumin Triglycerides Cholesterol LDL Cholesterol Direct HDL Cholesterol Urine pH Urine WBC (Auto) Urine Creatinine Urine Total Protein Fluid Total Protein Vancomycin Trough Rheumatoid Factor Complement C4 Miscellaneous Test Crossmatch 10/26/16 10/26/16 10/26/16 12:12 17:29 23:42 WBC RBC Hgb Hct MCV MCH MCHC RDW Plt Count Lymph % (Auto) [place] % (Auto) Lymph # [place] # Baso # Seg Neutrophils % Seg Neuts % (Manual) Lymphocytes % (Manual) Monocytes % (Manual) Eosinophils % (Manual) Basophils % (Manual) Nucleated RBC % Seg Neutrophils # Seg Neutrophils # Man Lymphocytes # (Manual) Monocytes # (Manual) Eosinophils # (Manual) Basophils # (Manual) PT INR Fibrinogen dRVVT Confirm Interp Factor V Activity POC ABG pH POC ABG pCO2 POC ABG pO2 ABG pO2 ABG HCO3 ABG Base Excess ABG Hemoglobin Oxyhemoglobin Sodium Potassium Chloride Carbon Dioxide BUN Creatinine Glucose POC Glucose 126 H 161 H 118 H Lactic Acid Calcium Phosphorus Magnesium Direct Bilirubin AST ALT Alkaline Phosphatase Lactate Dehydrogenase Troponin T C-Reactive Protein Total Protein Albumin Prealbumin Triglycerides Cholesterol LDL Cholesterol Direct HDL Cholesterol Urine pH Urine WBC (Auto) Urine Creatinine Urine Total Protein Fluid Total Protein Vancomycin Trough Rheumatoid Factor Complement C4 Miscellaneous Test Crossmatch 10/27/16 10/27/16 10/27/16 05:03 06:30 06:30 WBC 13.9 H RBC 3.09 L Hgb 9.2 L Hct 27.5 L MCV MCH MCHC RDW 17.0 H Plt Count Lymph % (Auto) [place] % (Auto) Lymph # [place] # Baso # Seg Neutrophils % Seg Neuts % (Manual) 78.0 H Lymphocytes % (Manual) Monocytes % (Manual) Eosinophils % (Manual) Basophils % (Manual) Nucleated RBC % 2.0 H Seg Neutrophils # Seg Neutrophils # Man 10.8 H Lymphocytes # (Manual) Monocytes # (Manual) 1.0 H Eosinophils # (Manual) Basophils # (Manual) PT INR Fibrinogen dRVVT Confirm Interp Factor V Activity POC ABG pH POC ABG pCO2 POC ABG pO2 ABG pO2 ABG HCO3 ABG Base Excess ABG Hemoglobin Oxyhemoglobin Sodium Potassium Chloride Carbon Dioxide BUN 40 H Creatinine 1.5 H Glucose 135 H POC Glucose 107 H Lactic Acid Calcium 8.3 L Phosphorus 1.30 L D Magnesium Direct Bilirubin AST ALT Alkaline Phosphatase Lactate Dehydrogenase Troponin T C-Reactive Protein Total Protein Albumin Prealbumin Triglycerides Cholesterol LDL Cholesterol Direct HDL Cholesterol Urine pH Urine WBC (Auto) Urine Creatinine Urine Total Protein Fluid Total Protein Vancomycin Trough Rheumatoid Factor Complement C4 Miscellaneous Test Crossmatch 10/27/16 10/27/16 10/27/16 13:27 18:07 23:40 WBC RBC Hgb Hct MCV MCH MCHC RDW Plt Count Lymph % (Auto) [place] % (Auto) Lymph # [place] # Baso # Seg Neutrophils % Seg Neuts % (Manual) Lymphocytes % (Manual) Monocytes % (Manual) Eosinophils % (Manual) Basophils % (Manual) Nucleated RBC % Seg Neutrophils # Seg Neutrophils # Man Lymphocytes # (Manual) Monocytes # (Manual) Eosinophils # (Manual) Basophils # (Manual) PT INR Fibrinogen dRVVT Confirm Interp Factor V Activity POC ABG pH POC ABG pCO2 POC ABG pO2 ABG pO2 ABG HCO3 ABG Base Excess ABG Hemoglobin Oxyhemoglobin Sodium Potassium Chloride Carbon Dioxide BUN Creatinine Glucose POC Glucose 117 H 121 H 118 H Lactic Acid Calcium Phosphorus Magnesium Direct Bilirubin AST ALT Alkaline Phosphatase Lactate Dehydrogenase Troponin T C-Reactive Protein Total Protein Albumin Prealbumin Triglycerides Cholesterol LDL Cholesterol Direct HDL Cholesterol Urine pH Urine WBC (Auto) Urine Creatinine Urine Total Protein Fluid Total Protein Vancomycin Trough Rheumatoid Factor Complement C4 Miscellaneous Test Crossmatch 10/28/16 10/28/16 10/28/16 05:48 06:45 06:45 WBC 14.7 H RBC 3.05 L Hgb 9.0 L Hct 26.9 L MCV MCH MCHC RDW 16.8 H Plt Count Lymph % (Auto) 8.2 L [place] % (Auto) 8.4 H Lymph # [place] # 1.2 H Baso # Seg Neutrophils % 81.9 H Seg Neuts % (Manual) Lymphocytes % (Manual) Monocytes % (Manual) Eosinophils % (Manual) Basophils % (Manual) Nucleated RBC % Seg Neutrophils # 12.1 H Seg Neutrophils # Man Lymphocytes # (Manual) Monocytes # (Manual) Eosinophils # (Manual) Basophils # (Manual) PT INR Fibrinogen dRVVT Confirm Interp Factor V Activity POC ABG pH POC ABG pCO2 POC ABG pO2 ABG pO2 ABG HCO3 ABG Base Excess ABG Hemoglobin Oxyhemoglobin Sodium Potassium Chloride Carbon Dioxide BUN 60 H Creatinine 1.9 H Glucose 120 H POC Glucose 114 H Lactic Acid Calcium Phosphorus Magnesium Direct Bilirubin AST ALT Alkaline Phosphatase Lactate Dehydrogenase Troponin T C-Reactive Protein Total Protein Albumin Prealbumin Triglycerides Cholesterol LDL Cholesterol Direct HDL Cholesterol Urine pH Urine WBC (Auto) Urine Creatinine Urine Total Protein Fluid Total Protein Vancomycin Trough Rheumatoid Factor Complement C4 Miscellaneous Test Crossmatch 10/28/16 10/28/16 10/29/16 17:08 23:50 05:10 WBC RBC Hgb Hct MCV MCH MCHC RDW Plt Count Lymph % (Auto) [place] % (Auto) Lymph # [place] # Baso # Seg Neutrophils % Seg Neuts % (Manual) Lymphocytes % (Manual) Monocytes % (Manual) Eosinophils % (Manual) Basophils % (Manual) Nucleated RBC % Seg Neutrophils # Seg Neutrophils # Man Lymphocytes # (Manual) Monocytes # (Manual) Eosinophils # (Manual) Basophils # (Manual) PT INR Fibrinogen dRVVT Confirm Interp Factor V Activity POC ABG pH POC ABG pCO2 POC ABG pO2 ABG pO2 ABG HCO3 ABG Base Excess ABG Hemoglobin Oxyhemoglobin Sodium Potassium Chloride Carbon Dioxide BUN Creatinine Glucose POC Glucose 109 H 110 H 124 H Lactic Acid Calcium Phosphorus Magnesium Direct Bilirubin AST ALT Alkaline Phosphatase Lactate Dehydrogenase Troponin T C-Reactive Protein Total Protein Albumin Prealbumin Triglycerides Cholesterol LDL Cholesterol Direct HDL Cholesterol Urine pH Urine WBC (Auto) Urine Creatinine Urine Total Protein Fluid Total Protein Vancomycin Trough Rheumatoid Factor Complement C4 Miscellaneous Test Crossmatch 10/29/16 10/29/16 10/29/16 07:45 07:45 12:19 WBC 14.7 H RBC 3.15 L Hgb 9.3 L Hct 28.9 L MCV MCH MCHC RDW 17.0 H Plt Count Lymph % (Auto) 11.9 L [place] % (Auto) 8.6 H Lymph # [place] # 1.3 H Baso # Seg Neutrophils % 78.1 H Seg Neuts % (Manual) Lymphocytes % (Manual) Monocytes % (Manual) Eosinophils % (Manual) Basophils % (Manual) Nucleated RBC % Seg Neutrophils # 11.4 H Seg Neutrophils # Man Lymphocytes # (Manual) Monocytes # (Manual) Eosinophils # (Manual) Basophils # (Manual) PT INR Fibrinogen dRVVT Confirm Interp Factor V Activity POC ABG pH POC ABG pCO2 POC ABG pO2 ABG pO2 ABG HCO3 ABG Base Excess ABG Hemoglobin Oxyhemoglobin Sodium Potassium 5.1 H Chloride Carbon Dioxide 19 L BUN 78 H Creatinine 2.2 H Glucose 116 H POC Glucose 118 H Lactic Acid Calcium Phosphorus Magnesium Direct Bilirubin AST ALT Alkaline Phosphatase Lactate Dehydrogenase Troponin T C-Reactive Protein Total Protein Albumin Prealbumin Triglycerides Cholesterol LDL Cholesterol Direct HDL Cholesterol Urine pH Urine WBC (Auto) Urine Creatinine Urine Total Protein Fluid Total Protein Vancomycin Trough Rheumatoid Factor Complement C4 Miscellaneous Test Crossmatch 10/29/16 10/30/16 10/30/16 17:49 01:52 03:28 WBC RBC Hgb Hct MCV MCH MCHC RDW Plt Count Lymph % (Auto) [place] % (Auto) Lymph # [place] # Baso # Seg Neutrophils % Seg Neuts % (Manual) Lymphocytes % (Manual) Monocytes % (Manual) Eosinophils % (Manual) Basophils % (Manual) Nucleated RBC % Seg Neutrophils # Seg Neutrophils # Man Lymphocytes # (Manual) Monocytes # (Manual) Eosinophils # (Manual) Basophils # (Manual) PT INR Fibrinogen dRVVT Confirm Interp Factor V Activity POC ABG pH POC ABG pCO2 POC ABG pO2 ABG pO2 ABG HCO3 ABG Base Excess ABG Hemoglobin Oxyhemoglobin Sodium Potassium 5.4 H Chloride 97.5 L Carbon Dioxide 19 L BUN 90 H Creatinine 2.5 H Glucose POC Glucose 120 H 129 H Lactic Acid Calcium Phosphorus 5.20 H Magnesium Direct Bilirubin AST ALT Alkaline Phosphatase Lactate Dehydrogenase Troponin T C-Reactive Protein Total Protein Albumin Prealbumin Triglycerides Cholesterol LDL Cholesterol Direct HDL Cholesterol Urine pH Urine WBC (Auto) Urine Creatinine Urine Total Protein Fluid Total Protein Vancomycin Trough Rheumatoid Factor Complement C4 Miscellaneous Test Crossmatch 10/30/16 10/30/16 10/30/16 03:28 08:19 08:19 WBC 11.6 H 15.9 H RBC 2.75 L 2.82 L Hgb 7.9 L 8.3 L Hct 24.2 L 25.2 L MCV MCH MCHC RDW 16.7 H 17.2 H Plt Count Lymph % (Auto) [place] % (Auto) 9.8 H Lymph # [place] # 1.1 H Baso # Seg Neutrophils % 74.2 H Seg Neuts % (Manual) Lymphocytes % (Manual) Monocytes % (Manual) Eosinophils % (Manual) Basophils % (Manual) Nucleated RBC % Seg Neutrophils # 8.6 H Seg Neutrophils # Man Lymphocytes # (Manual) Monocytes # (Manual) Eosinophils # (Manual) Basophils # (Manual) PT INR Fibrinogen dRVVT Confirm Interp Factor V Activity POC ABG pH POC ABG pCO2 POC ABG pO2 ABG pO2 ABG HCO3 ABG Base Excess ABG Hemoglobin Oxyhemoglobin Sodium Potassium 5.3 H Chloride 97.4 L Carbon Dioxide 19 L BUN 93 H Creatinine 2.6 H Glucose POC Glucose Lactic Acid Calcium Phosphorus Magnesium Direct Bilirubin AST ALT Alkaline Phosphatase Lactate Dehydrogenase Troponin T C-Reactive Protein Total Protein Albumin Prealbumin Triglycerides Cholesterol LDL Cholesterol Direct HDL Cholesterol Urine pH Urine WBC (Auto) Urine Creatinine Urine Total Protein Fluid Total Protein Vancomycin Trough Rheumatoid Factor Complement C4 Miscellaneous Test Crossmatch 10/30/16 10/30/16 10/31/16 17:11 23:56 00:40 WBC RBC Hgb Hct MCV MCH MCHC RDW Plt Count Lymph % (Auto) [place] % (Auto) Lymph # [place] # Baso # Seg Neutrophils % Seg Neuts % (Manual) Lymphocytes % (Manual) Monocytes % (Manual) Eosinophils % (Manual) Basophils % (Manual) Nucleated RBC % Seg Neutrophils # Seg Neutrophils # Man Lymphocytes # (Manual) Monocytes # (Manual) Eosinophils # (Manual) Basophils # (Manual) PT INR Fibrinogen dRVVT Confirm Interp Factor V Activity POC ABG pH POC ABG pCO2 POC ABG pO2 ABG pO2 ABG HCO3 ABG Base Excess ABG Hemoglobin Oxyhemoglobin Sodium Potassium Chloride Carbon Dioxide BUN Creatinine Glucose POC Glucose 106 H 117 H 120 H Lactic Acid Calcium Phosphorus Magnesium Direct Bilirubin AST ALT Alkaline Phosphatase Lactate Dehydrogenase Troponin T C-Reactive Protein Total Protein Albumin Prealbumin Triglycerides Cholesterol LDL Cholesterol Direct HDL Cholesterol Urine pH Urine WBC (Auto) Urine Creatinine Urine Total Protein Fluid Total Protein Vancomycin Trough Rheumatoid Factor Complement C4 Miscellaneous Test Crossmatch 10/31/16 10/31/16 10/31/16 05:43 07:15 07:15 WBC 12.1 H RBC 2.63 L Hgb 7.7 L Hct 23.3 L MCV MCH MCHC RDW 16.7 H Plt Count Lymph % (Auto) 11.7 L [place] % (Auto) 7.7 H Lymph # [place] # 0.9 H Baso # Seg Neutrophils % 78.0 H Seg Neuts % (Manual) Lymphocytes % (Manual) Monocytes % (Manual) Eosinophils % (Manual) Basophils % (Manual) Nucleated RBC % Seg Neutrophils # 9.4 H Seg Neutrophils # Man Lymphocytes # (Manual) Monocytes # (Manual) Eosinophils # (Manual) Basophils # (Manual) PT INR Fibrinogen dRVVT Confirm Interp Factor V Activity POC ABG pH POC ABG pCO2 POC ABG pO2 ABG pO2 ABG HCO3 ABG Base Excess ABG Hemoglobin Oxyhemoglobin Sodium Potassium Chloride 96.4 L Carbon Dioxide 21 L BUN 99 H Creatinine 2.6 H Glucose 144 H POC Glucose 125 H Lactic Acid Calcium Phosphorus 4.80 H Magnesium Direct Bilirubin AST ALT Alkaline Phosphatase Lactate Dehydrogenase Troponin T C-Reactive Protein Total Protein Albumin Prealbumin Triglycerides Cholesterol LDL Cholesterol Direct HDL Cholesterol Urine pH Urine WBC (Auto) Urine Creatinine Urine Total Protein Fluid Total Protein Vancomycin Trough Rheumatoid Factor Complement C4 Miscellaneous Test Crossmatch 10/31/16 10/31/16 11/01/16 11:46 18:34 00:20 WBC RBC Hgb Hct MCV MCH MCHC RDW Plt Count Lymph % (Auto) [place] % (Auto) Lymph # [place] # Baso # Seg Neutrophils % Seg Neuts % (Manual) Lymphocytes % (Manual) Monocytes % (Manual) Eosinophils % (Manual) Basophils % (Manual) Nucleated RBC % Seg Neutrophils # Seg Neutrophils # Man Lymphocytes # (Manual) Monocytes # (Manual) Eosinophils # (Manual) Basophils # (Manual) PT INR Fibrinogen dRVVT Confirm Interp Factor V Activity POC ABG pH POC ABG pCO2 POC ABG pO2 ABG pO2 ABG HCO3 ABG Base Excess ABG Hemoglobin Oxyhemoglobin Sodium Potassium Chloride Carbon Dioxide BUN Creatinine Glucose POC Glucose 159 H 140 H 132 H Lactic Acid Calcium Phosphorus Magnesium Direct Bilirubin AST ALT Alkaline Phosphatase Lactate Dehydrogenase Troponin T C-Reactive Protein Total Protein Albumin Prealbumin Triglycerides Cholesterol LDL Cholesterol Direct HDL Cholesterol Urine pH Urine WBC (Auto) Urine Creatinine Urine Total Protein Fluid Total Protein Vancomycin Trough Rheumatoid Factor Complement C4 Miscellaneous Test Crossmatch 11/01/16 11/01/16 11/01/16 04:55 04:55 06:11 WBC 11.2 H RBC 2.68 L Hgb 7.5 L Hct 23.7 L MCV MCH MCHC RDW 16.1 H Plt Count Lymph % (Auto) [place] % (Auto) 9.8 H Lymph # [place] # 1.1 H Baso # Seg Neutrophils % 70.8 H Seg Neuts % (Manual) Lymphocytes % (Manual) Monocytes % (Manual) Eosinophils % (Manual) Basophils % (Manual) Nucleated RBC % Seg Neutrophils # 7.9 H Seg Neutrophils # Man Lymphocytes # (Manual) Monocytes # (Manual) Eosinophils # (Manual) Basophils # (Manual) PT INR Fibrinogen dRVVT Confirm Interp Factor V Activity POC ABG pH POC ABG pCO2 POC ABG pO2 ABG pO2 ABG HCO3 ABG Base Excess ABG Hemoglobin Oxyhemoglobin Sodium Potassium 3.3 L D Chloride Carbon Dioxide BUN 61 H Creatinine 1.9 H Glucose 114 H POC Glucose 115 H Lactic Acid Calcium Phosphorus 1.80 L D Magnesium Direct Bilirubin AST ALT Alkaline Phosphatase Lactate Dehydrogenase Troponin T C-Reactive Protein Total Protein Albumin Prealbumin Triglycerides Cholesterol LDL Cholesterol Direct HDL Cholesterol Urine pH Urine WBC (Auto) Urine Creatinine Urine Total Protein Fluid Total Protein Vancomycin Trough Rheumatoid Factor Complement C4 Miscellaneous Test Crossmatch 11/01/16 11/01/16 11/01/16 12:29 18:23 23:58 WBC RBC Hgb Hct MCV MCH MCHC RDW Plt Count Lymph % (Auto) [place] % (Auto) Lymph # [place] # Baso # Seg Neutrophils % Seg Neuts % (Manual) Lymphocytes % (Manual) Monocytes % (Manual) Eosinophils % (Manual) Basophils % (Manual) Nucleated RBC % Seg Neutrophils # Seg Neutrophils # Man Lymphocytes # (Manual) Monocytes # (Manual) Eosinophils # (Manual) Basophils # (Manual) PT INR Fibrinogen dRVVT Confirm Interp Factor V Activity POC ABG pH POC ABG pCO2 POC ABG pO2 ABG pO2 ABG HCO3 ABG Base Excess ABG Hemoglobin Oxyhemoglobin Sodium Potassium Chloride Carbon Dioxide BUN Creatinine Glucose POC Glucose 142 H 143 H 128 H Lactic Acid Calcium Phosphorus Magnesium Direct Bilirubin AST ALT Alkaline Phosphatase Lactate Dehydrogenase Troponin T C-Reactive Protein Total Protein Albumin Prealbumin Triglycerides Cholesterol LDL Cholesterol Direct HDL Cholesterol Urine pH Urine WBC (Auto) Urine Creatinine Urine Total Protein Fluid Total Protein Vancomycin Trough Rheumatoid Factor Complement C4 Miscellaneous Test Crossmatch 11/02/16 11/02/16 11/02/16 04:16 05:29 11:58 WBC RBC Hgb Hct MCV MCH MCHC RDW Plt Count Lymph % (Auto) [place] % (Auto) Lymph # [place] # Baso # Seg Neutrophils % Seg Neuts % (Manual) Lymphocytes % (Manual) Monocytes % (Manual) Eosinophils % (Manual) Basophils % (Manual) Nucleated RBC % Seg Neutrophils # Seg Neutrophils # Man Lymphocytes # (Manual) Monocytes # (Manual) Eosinophils # (Manual) Basophils # (Manual) PT INR Fibrinogen dRVVT Confirm Interp Factor V Activity POC ABG pH POC ABG pCO2 POC ABG pO2 ABG pO2 ABG HCO3 ABG Base Excess ABG Hemoglobin Oxyhemoglobin Sodium Potassium 3.1 L Chloride Carbon Dioxide BUN 73 H Creatinine 2.3 H Glucose 112 H POC Glucose 135 H 149 H Lactic Acid Calcium Phosphorus Magnesium Direct Bilirubin AST ALT Alkaline Phosphatase Lactate Dehydrogenase Troponin T C-Reactive Protein Total Protein Albumin Prealbumin Triglycerides Cholesterol LDL Cholesterol Direct HDL Cholesterol Urine pH Urine WBC (Auto) Urine Creatinine Urine Total Protein Fluid Total Protein Vancomycin Trough Rheumatoid Factor Complement C4 Miscellaneous Test Crossmatch 11/02/16 11/02/16 11/03/16 17:42 22:54 06:00 WBC RBC Hgb Hct MCV MCH MCHC RDW Plt Count Lymph % (Auto) [place] % (Auto) Lymph # [place] # Baso # Seg Neutrophils % Seg Neuts % (Manual) Lymphocytes % (Manual) Monocytes % (Manual) Eosinophils % (Manual) Basophils % (Manual) Nucleated RBC % Seg Neutrophils # Seg Neutrophils # Man Lymphocytes # (Manual) Monocytes # (Manual) Eosinophils # (Manual) Basophils # (Manual) PT INR Fibrinogen dRVVT Confirm Interp Factor V Activity POC ABG pH POC ABG pCO2 POC ABG pO2 ABG pO2 ABG HCO3 ABG Base Excess ABG Hemoglobin Oxyhemoglobin Sodium Potassium Chloride 96.7 L Carbon Dioxide BUN 41 H Creatinine 1.5 H Glucose 145 H POC Glucose 182 H 115 H Lactic Acid Calcium Phosphorus 1.60 L D Magnesium 1.50 L Direct Bilirubin AST ALT Alkaline Phosphatase Lactate Dehydrogenase Troponin T C-Reactive Protein Total Protein Albumin Prealbumin Triglycerides Cholesterol LDL Cholesterol Direct HDL Cholesterol Urine pH Urine WBC (Auto) Urine Creatinine Urine Total Protein Fluid Total Protein Vancomycin Trough Rheumatoid Factor Complement C4 Miscellaneous Test Crossmatch 11/03/16 11/03/16 11/03/16 11:53 17:45 23:37 WBC RBC Hgb Hct MCV MCH MCHC RDW Plt Count Lymph % (Auto) [place] % (Auto) Lymph # [place] # Baso # Seg Neutrophils % Seg Neuts % (Manual) Lymphocytes % (Manual) Monocytes % (Manual) Eosinophils % (Manual) Basophils % (Manual) Nucleated RBC % Seg Neutrophils # Seg Neutrophils # Man Lymphocytes # (Manual) Monocytes # (Manual) Eosinophils # (Manual) Basophils # (Manual) PT INR Fibrinogen dRVVT Confirm Interp Factor V Activity POC ABG pH POC ABG pCO2 POC ABG pO2 ABG pO2 ABG HCO3 ABG Base Excess ABG Hemoglobin Oxyhemoglobin Sodium Potassium Chloride Carbon Dioxide BUN Creatinine Glucose POC Glucose 131 H 134 H 113 H Lactic Acid Calcium Phosphorus Magnesium Direct Bilirubin AST ALT Alkaline Phosphatase Lactate Dehydrogenase Troponin T C-Reactive Protein Total Protein Albumin Prealbumin Triglycerides Cholesterol LDL Cholesterol Direct HDL Cholesterol Urine pH Urine WBC (Auto) Urine Creatinine Urine Total Protein Fluid Total Protein Vancomycin Trough Rheumatoid Factor Complement C4 Miscellaneous Test Crossmatch 11/04/16 11/04/16 11/04/16 05:41 06:00 12:10 WBC RBC Hgb Hct MCV MCH MCHC RDW Plt Count Lymph % (Auto) [place] % (Auto) Lymph # [place] # Baso # Seg Neutrophils % Seg Neuts % (Manual) Lymphocytes % (Manual) Monocytes % (Manual) Eosinophils % (Manual) Basophils % (Manual) Nucleated RBC % Seg Neutrophils # Seg Neutrophils # Man Lymphocytes # (Manual) Monocytes # (Manual) Eosinophils # (Manual) Basophils # (Manual) PT INR Fibrinogen dRVVT Confirm Interp Factor V Activity POC ABG pH POC ABG pCO2 POC ABG pO2 ABG pO2 ABG HCO3 ABG Base Excess ABG Hemoglobin Oxyhemoglobin Sodium Potassium Chloride 96.7 L Carbon Dioxide BUN 52 H Creatinine 1.9 H Glucose 126 H POC Glucose 137 H 191 H Lactic Acid Calcium Phosphorus Magnesium Direct Bilirubin AST ALT Alkaline Phosphatase Lactate Dehydrogenase Troponin T C-Reactive Protein Total Protein Albumin Prealbumin Triglycerides Cholesterol LDL Cholesterol Direct HDL Cholesterol Urine pH Urine WBC (Auto) Urine Creatinine Urine Total Protein Fluid Total Protein Vancomycin Trough Rheumatoid Factor Complement C4 Miscellaneous Test Crossmatch 11/04/16 11/05/16 11/05/16 22:57 03:10 05:10 WBC RBC Hgb Hct MCV MCH MCHC RDW Plt Count Lymph % (Auto) [place] % (Auto) Lymph # [place] # Baso # Seg Neutrophils % Seg Neuts % (Manual) Lymphocytes % (Manual) Monocytes % (Manual) Eosinophils % (Manual) Basophils % (Manual) Nucleated RBC % Seg Neutrophils # Seg Neutrophils # Man Lymphocytes # (Manual) Monocytes # (Manual) Eosinophils # (Manual) Basophils # (Manual) PT INR Fibrinogen dRVVT Confirm Interp Factor V Activity POC ABG pH POC ABG pCO2 POC ABG pO2 ABG pO2 ABG HCO3 ABG Base Excess ABG Hemoglobin Oxyhemoglobin Sodium 136 L Potassium Chloride 97.2 L Carbon Dioxide BUN 32 H Creatinine 1.3 H Glucose 123 H POC Glucose 125 H 108 H Lactic Acid Calcium 7.8 L Phosphorus Magnesium Direct Bilirubin AST ALT Alkaline Phosphatase Lactate Dehydrogenase Troponin T C-Reactive Protein Total Protein Albumin Prealbumin Triglycerides Cholesterol LDL Cholesterol Direct HDL Cholesterol Urine pH Urine WBC (Auto) Urine Creatinine Urine Total Protein Fluid Total Protein Vancomycin Trough Rheumatoid Factor Complement C4 Miscellaneous Test Crossmatch 11/05/16 11/05/16 11/05/16 12:23 13:09 13:25 WBC RBC Hgb Hct MCV MCH MCHC RDW Plt Count Lymph % (Auto) [place] % (Auto) Lymph # [place] # Baso # Seg Neutrophils % Seg Neuts % (Manual) Lymphocytes % (Manual) Monocytes % (Manual) Eosinophils % (Manual) Basophils % (Manual) Nucleated RBC % Seg Neutrophils # Seg Neutrophils # Man Lymphocytes # (Manual) Monocytes # (Manual) Eosinophils # (Manual) Basophils # (Manual) PT INR Fibrinogen dRVVT Confirm Interp Factor V Activity POC ABG pH POC ABG pCO2 POC ABG pO2 ABG pO2 ABG HCO3 ABG Base Excess ABG Hemoglobin Oxyhemoglobin Sodium Potassium Chloride Carbon Dioxide BUN Creatinine Glucose POC Glucose 124 H Lactic Acid Calcium Phosphorus Magnesium Direct Bilirubin AST ALT Alkaline Phosphatase Lactate Dehydrogenase Troponin T C-Reactive Protein 11.40 H Total Protein Albumin Prealbumin Triglycerides Cholesterol LDL Cholesterol Direct HDL Cholesterol Urine pH 9.0 H Urine WBC (Auto) Urine Creatinine Urine Total Protein Fluid Total Protein Vancomycin Trough Rheumatoid Factor Complement C4 Miscellaneous Test Crossmatch 11/05/16 11/05/16 11/05/16 13:25 17:54 23:42 WBC RBC Hgb Hct MCV MCH MCHC RDW Plt Count Lymph % (Auto) [place] % (Auto) Lymph # [place] # Baso # Seg Neutrophils % Seg Neuts % (Manual) Lymphocytes % (Manual) Monocytes % (Manual) Eosinophils % (Manual) Basophils % (Manual) Nucleated RBC % Seg Neutrophils # Seg Neutrophils # Man Lymphocytes # (Manual) Monocytes # (Manual) Eosinophils # (Manual) Basophils # (Manual) PT INR Fibrinogen dRVVT Confirm Interp Factor V Activity POC ABG pH POC ABG pCO2 POC ABG pO2 ABG pO2 ABG HCO3 ABG Base Excess ABG Hemoglobin Oxyhemoglobin Sodium Potassium Chloride Carbon Dioxide BUN Creatinine Glucose POC Glucose 114 H 134 H Lactic Acid Calcium Phosphorus Magnesium Direct Bilirubin AST ALT Alkaline Phosphatase Lactate Dehydrogenase Troponin T C-Reactive Protein Total Protein Albumin Prealbumin Triglycerides Cholesterol LDL Cholesterol Direct HDL Cholesterol Urine pH Urine WBC (Auto) Urine Creatinine Urine Total Protein Fluid Total Protein Vancomycin Trough Rheumatoid Factor Complement C4 Miscellaneous Test Flexitest 1 H Crossmatch 11/06/16 11/06/16 11/06/16 04:56 06:25 06:25 WBC RBC 2.50 L Hgb 7.3 L Hct 22.5 L MCV MCH MCHC RDW 16.9 H Plt Count Lymph % (Auto) [place] % (Auto) 10.5 H Lymph # [place] # 1.1 H Baso # Seg Neutrophils % Seg Neuts % (Manual) Lymphocytes % (Manual) Monocytes % (Manual) Eosinophils % (Manual) Basophils % (Manual) Nucleated RBC % Seg Neutrophils # Seg Neutrophils # Man Lymphocytes # (Manual) Monocytes # (Manual) Eosinophils # (Manual) Basophils # (Manual) PT INR Fibrinogen dRVVT Confirm Interp Factor V Activity POC ABG pH POC ABG pCO2 POC ABG pO2 ABG pO2 ABG HCO3 ABG Base Excess ABG Hemoglobin Oxyhemoglobin Sodium Potassium 5.1 H Chloride 95.9 L Carbon Dioxide BUN 52 H Creatinine 1.8 H Glucose 117 H POC Glucose 120 H Lactic Acid Calcium Phosphorus Magnesium Direct Bilirubin AST 103 H ALT 77 H Alkaline Phosphatase 285 H Lactate Dehydrogenase Troponin T C-Reactive Protein Total Protein 6.2 L Albumin 1.8 L Prealbumin 0.180 L Triglycerides Cholesterol LDL Cholesterol Direct HDL Cholesterol Urine pH Urine WBC (Auto) Urine Creatinine Urine Total Protein Fluid Total Protein Vancomycin Trough Rheumatoid Factor Complement C4 Miscellaneous Test Crossmatch 11/06/16 11/06/16 11/06/16 11:56 17:14 23:52 WBC RBC Hgb Hct MCV MCH MCHC RDW Plt Count Lymph % (Auto) [place] % (Auto) Lymph # [place] # Baso # Seg Neutrophils % Seg Neuts % (Manual) Lymphocytes % (Manual) Monocytes % (Manual) Eosinophils % (Manual) Basophils % (Manual) Nucleated RBC % Seg Neutrophils # Seg Neutrophils # Man Lymphocytes # (Manual) Monocytes # (Manual) Eosinophils # (Manual) Basophils # (Manual) PT INR Fibrinogen dRVVT Confirm Interp Factor V Activity POC ABG pH POC ABG pCO2 POC ABG pO2 ABG pO2 ABG HCO3 ABG Base Excess ABG Hemoglobin Oxyhemoglobin Sodium Potassium Chloride Carbon Dioxide BUN Creatinine Glucose POC Glucose 141 H 125 H 130 H Lactic Acid Calcium Phosphorus Magnesium Direct Bilirubin AST ALT Alkaline Phosphatase Lactate Dehydrogenase Troponin T C-Reactive Protein Total Protein Albumin Prealbumin Triglycerides Cholesterol LDL Cholesterol Direct HDL Cholesterol Urine pH Urine WBC (Auto) Urine Creatinine Urine Total Protein Fluid Total Protein Vancomycin Trough Rheumatoid Factor Complement C4 Miscellaneous Test Crossmatch 11/07/16 11/07/16 11/07/16 06:30 06:30 09:37 WBC RBC 2.18 L Hgb 6.3 L Hct 19.7 L* MCV MCH MCHC RDW 16.8 H Plt Count Lymph % (Auto) [place] % (Auto) 10.0 H Lymph # [place] # 1.0 H Baso # Seg Neutrophils % Seg Neuts % (Manual) Lymphocytes % (Manual) Monocytes % (Manual) Eosinophils % (Manual) Basophils % (Manual) Nucleated RBC % Seg Neutrophils # Seg Neutrophils # Man Lymphocytes # (Manual) Monocytes # (Manual) Eosinophils # (Manual) Basophils # (Manual) PT INR Fibrinogen dRVVT Confirm Interp Factor V Activity POC ABG pH POC ABG pCO2 POC ABG pO2 ABG pO2 ABG HCO3 ABG Base Excess ABG Hemoglobin Oxyhemoglobin Sodium 135 L Potassium Chloride 95.6 L Carbon Dioxide BUN 70 H Creatinine 2.0 H Glucose 126 H POC Glucose Lactic Acid Calcium Phosphorus Magnesium Direct Bilirubin AST ALT Alkaline Phosphatase Lactate Dehydrogenase Troponin T C-Reactive Protein Total Protein Albumin Prealbumin Triglycerides Cholesterol LDL Cholesterol Direct HDL Cholesterol Urine pH Urine WBC (Auto) Urine Creatinine Urine Total Protein Fluid Total Protein Vancomycin Trough Rheumatoid Factor Complement C4 Miscellaneous Test Crossmatch See Detail 11/07/16 11/07/16 11/07/16 12:52 18:51 21:26 WBC RBC Hgb Hct MCV MCH MCHC RDW Plt Count Lymph % (Auto) [place] % (Auto) Lymph # [place] # Baso # Seg Neutrophils % Seg Neuts % (Manual) Lymphocytes % (Manual) Monocytes % (Manual) Eosinophils % (Manual) Basophils % (Manual) Nucleated RBC % Seg Neutrophils # Seg Neutrophils # Man Lymphocytes # (Manual) Monocytes # (Manual) Eosinophils # (Manual) Basophils # (Manual) PT INR Fibrinogen dRVVT Confirm Interp Factor V Activity POC ABG pH 7.523 H POC ABG pCO2 34.6 L POC ABG pO2 53 L ABG pO2 ABG HCO3 ABG Base Excess ABG Hemoglobin Oxyhemoglobin Sodium Potassium Chloride Carbon Dioxide BUN Creatinine Glucose POC Glucose 142 H 155 H Lactic Acid Calcium Phosphorus Magnesium Direct Bilirubin AST ALT Alkaline Phosphatase Lactate Dehydrogenase Troponin T C-Reactive Protein Total Protein Albumin Prealbumin Triglycerides Cholesterol LDL Cholesterol Direct HDL Cholesterol Urine pH Urine WBC (Auto) Urine Creatinine Urine Total Protein Fluid Total Protein Vancomycin Trough Rheumatoid Factor Complement C4 Miscellaneous Test Crossmatch 11/07/16 11/08/16 11/08/16 21:34 13:03 23:37 WBC RBC 2.63 L Hgb 7.7 L Hct 22.7 L MCV MCH MCHC RDW 17.0 H Plt Count Lymph % (Auto) [place] % (Auto) Lymph # [place] # Baso # Seg Neutrophils % Seg Neuts % (Manual) Lymphocytes % (Manual) Monocytes % (Manual) Eosinophils % (Manual) Basophils % (Manual) Nucleated RBC % Seg Neutrophils # Seg Neutrophils # Man Lymphocytes # (Manual) Monocytes # (Manual) Eosinophils # (Manual) Basophils # (Manual) PT INR Fibrinogen dRVVT Confirm Interp Factor V Activity POC ABG pH 7.478 H POC ABG pCO2 34.0 L POC ABG pO2 50 L ABG pO2 ABG HCO3 ABG Base Excess ABG Hemoglobin Oxyhemoglobin Sodium Potassium Chloride Carbon Dioxide BUN Creatinine Glucose POC Glucose 113 H Lactic Acid Calcium Phosphorus Magnesium Direct Bilirubin AST ALT Alkaline Phosphatase Lactate Dehydrogenase Troponin T C-Reactive Protein Total Protein Albumin Prealbumin Triglycerides Cholesterol LDL Cholesterol Direct HDL Cholesterol Urine pH Urine WBC (Auto) Urine Creatinine Urine Total Protein Fluid Total Protein Vancomycin Trough Rheumatoid Factor Complement C4 Miscellaneous Test Crossmatch 11/09/16 11/09/16 11/09/16 04:35 10:15 18:21 WBC RBC 2.68 L Hgb 7.8 L Hct 23.3 L MCV MCH MCHC RDW 17.0 H Plt Count Lymph % (Auto) [place] % (Auto) 12.1 H Lymph # [place] # 1.1 H Baso # Seg Neutrophils % Seg Neuts % (Manual) Lymphocytes % (Manual) Monocytes % (Manual) Eosinophils % (Manual) Basophils % (Manual) Nucleated RBC % Seg Neutrophils # Seg Neutrophils # Man Lymphocytes # (Manual) Monocytes # (Manual) Eosinophils # (Manual) Basophils # (Manual) PT INR Fibrinogen dRVVT Confirm Interp Factor V Activity POC ABG pH POC ABG pCO2 POC ABG pO2 ABG pO2 ABG HCO3 ABG Base Excess ABG Hemoglobin Oxyhemoglobin Sodium Potassium Chloride Carbon Dioxide BUN 51 H Creatinine 1.8 H Glucose POC Glucose 60 L Lactic Acid Calcium 8.3 L Phosphorus Magnesium Direct Bilirubin AST ALT Alkaline Phosphatase Lactate Dehydrogenase Troponin T C-Reactive Protein Total Protein Albumin Prealbumin Triglycerides Cholesterol LDL Cholesterol Direct HDL Cholesterol Urine pH Urine WBC (Auto) Urine Creatinine Urine Total Protein Fluid Total Protein Vancomycin Trough Rheumatoid Factor Complement C4 Miscellaneous Test Crossmatch 11/09/16 11/10/16 11/10/16 18:55 07:00 11:51 WBC RBC Hgb Hct MCV MCH MCHC RDW Plt Count Lymph % (Auto) [place] % (Auto) Lymph # [place] # Baso # Seg Neutrophils % Seg Neuts % (Manual) Lymphocytes % (Manual) Monocytes % (Manual) Eosinophils % (Manual) Basophils % (Manual) Nucleated RBC % Seg Neutrophils # Seg Neutrophils # Man Lymphocytes # (Manual) Monocytes # (Manual) Eosinophils # (Manual) Basophils # (Manual) PT INR Fibrinogen dRVVT Confirm Interp Factor V Activity POC ABG pH POC ABG pCO2 POC ABG pO2 ABG pO2 ABG HCO3 ABG Base Excess ABG Hemoglobin Oxyhemoglobin Sodium Potassium 3.0 L D Chloride 97.4 L Carbon Dioxide BUN 28 H Creatinine 1.3 H Glucose POC Glucose 68 L 120 H Lactic Acid Calcium 7.8 L Phosphorus Magnesium Direct Bilirubin AST ALT Alkaline Phosphatase Lactate Dehydrogenase Troponin T C-Reactive Protein Total Protein Albumin Prealbumin Triglycerides Cholesterol LDL Cholesterol Direct HDL Cholesterol Urine pH Urine WBC (Auto) Urine Creatinine Urine Total Protein Fluid Total Protein Vancomycin Trough Rheumatoid Factor Complement C4 Miscellaneous Test Crossmatch 11/10/16 11/11/16 11/11/16 14:20 06:59 06:59 WBC RBC 2.81 L Hgb 8.1 L Hct 24.4 L MCV MCH MCHC RDW 16.4 H Plt Count Lymph % (Auto) [place] % (Auto) 10.8 H Lymph # [place] # 1.0 H Baso # Seg Neutrophils % Seg Neuts % (Manual) Lymphocytes % (Manual) Monocytes % (Manual) Eosinophils % (Manual) Basophils % (Manual) Nucleated RBC % Seg Neutrophils # Seg Neutrophils # Man Lymphocytes # (Manual) Monocytes # (Manual) Eosinophils # (Manual) Basophils # (Manual) PT INR Fibrinogen dRVVT Confirm Interp Factor V Activity POC ABG pH POC ABG pCO2 POC ABG pO2 ABG pO2 ABG HCO3 ABG Base Excess ABG Hemoglobin Oxyhemoglobin Sodium Potassium Chloride Carbon Dioxide BUN Creatinine Glucose POC Glucose Lactic Acid Calcium Phosphorus Magnesium Direct Bilirubin AST ALT Alkaline Phosphatase Lactate Dehydrogenase 196 H Troponin T C-Reactive Protein Total Protein 6.1 L Albumin Prealbumin Triglycerides Cholesterol LDL Cholesterol Direct HDL Cholesterol Urine pH Urine WBC (Auto) Urine Creatinine Urine Total Protein Fluid Total Protein < 3.0 L Vancomycin Trough Rheumatoid Factor Complement C4 Miscellaneous Test Crossmatch 11/11/16 11/11/16 11/12/16 06:59 09:50 04:00 WBC RBC Hgb Hct MCV MCH MCHC RDW Plt Count Lymph % (Auto) [place] % (Auto) Lymph # [place] # Baso # Seg Neutrophils % Seg Neuts % (Manual) Lymphocytes % (Manual) Monocytes % (Manual) Eosinophils % (Manual) Basophils % (Manual) Nucleated RBC % Seg Neutrophils # Seg Neutrophils # Man Lymphocytes # (Manual) Monocytes # (Manual) Eosinophils # (Manual) Basophils # (Manual) PT INR 1.18 H Fibrinogen dRVVT Confirm Interp Factor V Activity POC ABG pH POC ABG pCO2 POC ABG pO2 ABG pO2 ABG HCO3 ABG Base Excess ABG Hemoglobin Oxyhemoglobin Sodium 136 L 133 L Potassium Chloride 96.1 L 94.8 L Carbon Dioxide 21 L BUN 37 H 42 H Creatinine 1.8 H 2.0 H Glucose POC Glucose Lactic Acid Calcium Phosphorus Magnesium Direct Bilirubin AST ALT Alkaline Phosphatase Lactate Dehydrogenase Troponin T C-Reactive Protein Total Protein Albumin Prealbumin Triglycerides Cholesterol LDL Cholesterol Direct HDL Cholesterol Urine pH Urine WBC (Auto) Urine Creatinine Urine Total Protein Fluid Total Protein Vancomycin Trough Rheumatoid Factor Complement C4 Miscellaneous Test Crossmatch 11/12/16 11/12/16 11/13/16 04:00 23:55 05:53 WBC RBC Hgb 8.9 L Hct 27.2 L MCV MCH MCHC RDW Plt Count Lymph % (Auto) [place] % (Auto) Lymph # [place] # Baso # Seg Neutrophils % Seg Neuts % (Manual) Lymphocytes % (Manual) Monocytes % (Manual) Eosinophils % (Manual) Basophils % (Manual) Nucleated RBC % Seg Neutrophils # Seg Neutrophils # Man Lymphocytes # (Manual) Monocytes # (Manual) Eosinophils # (Manual) Basophils # (Manual) PT INR Fibrinogen dRVVT Confirm Interp Factor V Activity POC ABG pH POC ABG pCO2 POC ABG pO2 ABG pO2 ABG HCO3 ABG Base Excess ABG Hemoglobin Oxyhemoglobin Sodium Potassium Chloride Carbon Dioxide BUN Creatinine Glucose POC Glucose 132 H 120 H Lactic Acid Calcium Phosphorus Magnesium Direct Bilirubin AST ALT Alkaline Phosphatase Lactate Dehydrogenase Troponin T C-Reactive Protein Total Protein Albumin Prealbumin Triglycerides Cholesterol LDL Cholesterol Direct HDL Cholesterol Urine pH Urine WBC (Auto) Urine Creatinine Urine Total Protein Fluid Total Protein Vancomycin Trough Rheumatoid Factor Complement C4 Miscellaneous Test Crossmatch 11/13/16 11/13/16 11/13/16 11:43 17:09 23:41 WBC RBC Hgb Hct MCV MCH MCHC RDW Plt Count Lymph % (Auto) [place] % (Auto) Lymph # [place] # Baso # Seg Neutrophils % Seg Neuts % (Manual) Lymphocytes % (Manual) Monocytes % (Manual) Eosinophils % (Manual) Basophils % (Manual) Nucleated RBC % Seg Neutrophils # Seg Neutrophils # Man Lymphocytes # (Manual) Monocytes # (Manual) Eosinophils # (Manual) Basophils # (Manual) PT INR Fibrinogen dRVVT Confirm Interp Factor V Activity POC ABG pH POC ABG pCO2 POC ABG pO2 ABG pO2 ABG HCO3 ABG Base Excess ABG Hemoglobin Oxyhemoglobin Sodium Potassium Chloride Carbon Dioxide BUN Creatinine Glucose POC Glucose 114 H 113 H 108 H Lactic Acid Calcium Phosphorus Magnesium Direct Bilirubin AST ALT Alkaline Phosphatase Lactate Dehydrogenase Troponin T C-Reactive Protein Total Protein Albumin Prealbumin Triglycerides Cholesterol LDL Cholesterol Direct HDL Cholesterol Urine pH Urine WBC (Auto) Urine Creatinine Urine Total Protein Fluid Total Protein Vancomycin Trough Rheumatoid Factor Complement C4 Miscellaneous Test Crossmatch 11/13/16 11/15/16 11/15/16 Unknown 00:37 03:30 WBC 11.2 H RBC 2.72 L Hgb 7.6 L Hct 23.4 L MCV MCH MCHC RDW 16.5 H Plt Count Lymph % (Auto) [place] % (Auto) Lymph # [place] # Baso # Seg Neutrophils % Seg Neuts % (Manual) Lymphocytes % (Manual) Monocytes % (Manual) Eosinophils % (Manual) Basophils % (Manual) Nucleated RBC % Seg Neutrophils # Seg Neutrophils # Man Lymphocytes # (Manual) Monocytes # (Manual) Eosinophils # (Manual) Basophils # (Manual) PT INR Fibrinogen dRVVT Confirm Interp Factor V Activity POC ABG pH POC ABG pCO2 POC ABG pO2 ABG pO2 ABG HCO3 ABG Base Excess ABG Hemoglobin Oxyhemoglobin Sodium 135 L Potassium Chloride 95.2 L Carbon Dioxide BUN 52 H Creatinine 2.2 H Glucose POC Glucose 108 H Lactic Acid Calcium Phosphorus Magnesium Direct Bilirubin AST ALT Alkaline Phosphatase Lactate Dehydrogenase Troponin T C-Reactive Protein Total Protein Albumin Prealbumin Triglycerides Cholesterol LDL Cholesterol Direct HDL Cholesterol Urine pH Urine WBC (Auto) Urine Creatinine Urine Total Protein Fluid Total Protein Vancomycin Trough Rheumatoid Factor Complement C4 Miscellaneous Test Crossmatch 11/15/16 11/15/16 11/15/16 03:30 05:04 11:50 WBC RBC Hgb Hct MCV MCH MCHC RDW Plt Count Lymph % (Auto) [place] % (Auto) Lymph # [place] # Baso # Seg Neutrophils % Seg Neuts % (Manual) Lymphocytes % (Manual) Monocytes % (Manual) Eosinophils % (Manual) Basophils % (Manual) Nucleated RBC % Seg Neutrophils # Seg Neutrophils # Man Lymphocytes # (Manual) Monocytes # (Manual) Eosinophils # (Manual) Basophils # (Manual) PT INR Fibrinogen dRVVT Confirm Interp Factor V Activity POC ABG pH POC ABG pCO2 POC ABG pO2 ABG pO2 ABG HCO3 ABG Base Excess ABG Hemoglobin Oxyhemoglobin Sodium Potassium 3.4 L Chloride Carbon Dioxide BUN 25 H Creatinine 1.5 H Glucose 103 H POC Glucose 121 H 144 H Lactic Acid Calcium Phosphorus Magnesium Direct Bilirubin AST ALT Alkaline Phosphatase Lactate Dehydrogenase Troponin T C-Reactive Protein Total Protein Albumin Prealbumin Triglycerides Cholesterol LDL Cholesterol Direct HDL Cholesterol Urine pH Urine WBC (Auto) Urine Creatinine Urine Total Protein Fluid Total Protein Vancomycin Trough Rheumatoid Factor Complement C4 Miscellaneous Test Crossmatch 11/15/16 11/15/16 11/16/16 21:28 23:20 11:44 WBC RBC Hgb Hct MCV MCH MCHC RDW Plt Count Lymph % (Auto) [place] % (Auto) Lymph # [place] # Baso # Seg Neutrophils % Seg Neuts % (Manual) Lymphocytes % (Manual) Monocytes % (Manual) Eosinophils % (Manual) Basophils % (Manual) Nucleated RBC % Seg Neutrophils # Seg Neutrophils # Man Lymphocytes # (Manual) Monocytes # (Manual) Eosinophils # (Manual) Basophils # (Manual) PT INR Fibrinogen dRVVT Confirm Interp Factor V Activity POC ABG pH 7.462 H POC ABG pCO2 POC ABG pO2 71 L ABG pO2 ABG HCO3 ABG Base Excess ABG Hemoglobin Oxyhemoglobin Sodium Potassium Chloride Carbon Dioxide BUN Creatinine Glucose POC Glucose 116 H 133 H Lactic Acid Calcium Phosphorus Magnesium Direct Bilirubin AST ALT Alkaline Phosphatase Lactate Dehydrogenase Troponin T C-Reactive Protein Total Protein Albumin Prealbumin Triglycerides Cholesterol LDL Cholesterol Direct HDL Cholesterol Urine pH Urine WBC (Auto) Urine Creatinine Urine Total Protein Fluid Total Protein Vancomycin Trough Rheumatoid Factor Complement C4 Miscellaneous Test Crossmatch 11/16/16 11/16/16 11/16/16 12:20 17:05 23:35 WBC 11.7 H RBC 2.73 L Hgb 7.6 L Hct 23.7 L MCV MCH MCHC RDW 16.6 H Plt Count Lymph % (Auto) [place] % (Auto) Lymph # [place] # Baso # Seg Neutrophils % Seg Neuts % (Manual) Lymphocytes % (Manual) Monocytes % (Manual) Eosinophils % (Manual) Basophils % (Manual) Nucleated RBC % Seg Neutrophils # Seg Neutrophils # Man Lymphocytes # (Manual) Monocytes # (Manual) Eosinophils # (Manual) Basophils # (Manual) PT INR Fibrinogen dRVVT Confirm Interp Factor V Activity POC ABG pH POC ABG pCO2 POC ABG pO2 ABG pO2 ABG HCO3 ABG Base Excess ABG Hemoglobin Oxyhemoglobin Sodium Potassium Chloride Carbon Dioxide BUN Creatinine Glucose POC Glucose 154 H 125 H Lactic Acid Calcium Phosphorus Magnesium Direct Bilirubin AST ALT Alkaline Phosphatase Lactate Dehydrogenase Troponin T C-Reactive Protein Total Protein Albumin Prealbumin Triglycerides Cholesterol LDL Cholesterol Direct HDL Cholesterol Urine pH Urine WBC (Auto) Urine Creatinine Urine Total Protein Fluid Total Protein Vancomycin Trough Rheumatoid Factor Complement C4 Miscellaneous Test Crossmatch 11/17/16 11/17/16 11/17/16 03:20 03:20 03:20 WBC RBC 2.55 L Hgb 7.3 L Hct 21.9 L MCV MCH MCHC RDW 16.6 H Plt Count Lymph % (Auto) [place] % (Auto) 11.5 H Lymph # [place] # 1.1 H Baso # Seg Neutrophils % Seg Neuts % (Manual) Lymphocytes % (Manual) Monocytes % (Manual) Eosinophils % (Manual) Basophils % (Manual) Nucleated RBC % Seg Neutrophils # Seg Neutrophils # Man Lymphocytes # (Manual) Monocytes # (Manual) Eosinophils # (Manual) Basophils # (Manual) PT 16.8 H INR 1.37 H Fibrinogen dRVVT Confirm Interp Factor V Activity POC ABG pH POC ABG pCO2 POC ABG pO2 ABG pO2 ABG HCO3 ABG Base Excess ABG Hemoglobin Oxyhemoglobin Sodium Potassium 3.5 L Chloride Carbon Dioxide BUN 21 H Creatinine Glucose POC Glucose Lactic Acid Calcium 7.9 L Phosphorus Magnesium Direct Bilirubin AST ALT Alkaline Phosphatase Lactate Dehydrogenase Troponin T C-Reactive Protein Total Protein Albumin Prealbumin Triglycerides Cholesterol LDL Cholesterol Direct HDL Cholesterol Urine pH Urine WBC (Auto) Urine Creatinine Urine Total Protein Fluid Total Protein Vancomycin Trough Rheumatoid Factor Complement C4 Miscellaneous Test Crossmatch 11/17/16 11/17/16 11/17/16 06:34 11:21 21:22 WBC RBC Hgb Hct MCV MCH MCHC RDW Plt Count Lymph % (Auto) [place] % (Auto) Lymph # [place] # Baso # Seg Neutrophils % Seg Neuts % (Manual) Lymphocytes % (Manual) Monocytes % (Manual) Eosinophils % (Manual) Basophils % (Manual) Nucleated RBC % Seg Neutrophils # Seg Neutrophils # Man Lymphocytes # (Manual) Monocytes # (Manual) Eosinophils # (Manual) Basophils # (Manual) PT INR Fibrinogen dRVVT Confirm Interp Factor V Activity POC ABG pH 7.467 H POC ABG pCO2 POC ABG pO2 73 L ABG pO2 ABG HCO3 ABG Base Excess ABG Hemoglobin Oxyhemoglobin Sodium Potassium Chloride Carbon Dioxide BUN Creatinine Glucose POC Glucose 121 H 119 H Lactic Acid Calcium Phosphorus Magnesium Direct Bilirubin AST ALT Alkaline Phosphatase Lactate Dehydrogenase Troponin T C-Reactive Protein Total Protein Albumin Prealbumin Triglycerides Cholesterol LDL Cholesterol Direct HDL Cholesterol Urine pH Urine WBC (Auto) Urine Creatinine Urine Total Protein Fluid Total Protein Vancomycin Trough Rheumatoid Factor Complement C4 Miscellaneous Test Crossmatch 11/18/16 11/18/16 11/19/16 12:16 17:19 00:00 WBC RBC Hgb Hct MCV MCH MCHC RDW Plt Count Lymph % (Auto) [place] % (Auto) Lymph # [place] # Baso # Seg Neutrophils % Seg Neuts % (Manual) Lymphocytes % (Manual) Monocytes % (Manual) Eosinophils % (Manual) Basophils % (Manual) Nucleated RBC % Seg Neutrophils # Seg Neutrophils # Man Lymphocytes # (Manual) Monocytes # (Manual) Eosinophils # (Manual) Basophils # (Manual) PT INR Fibrinogen dRVVT Confirm Interp Factor V Activity POC ABG pH POC ABG pCO2 POC ABG pO2 ABG pO2 ABG HCO3 ABG Base Excess ABG Hemoglobin Oxyhemoglobin Sodium Potassium Chloride Carbon Dioxide BUN Creatinine Glucose POC Glucose 124 H 162 H 139 H Lactic Acid Calcium Phosphorus Magnesium Direct Bilirubin AST ALT Alkaline Phosphatase Lactate Dehydrogenase Troponin T C-Reactive Protein Total Protein Albumin Prealbumin Triglycerides Cholesterol LDL Cholesterol Direct HDL Cholesterol Urine pH Urine WBC (Auto) Urine Creatinine Urine Total Protein Fluid Total Protein Vancomycin Trough Rheumatoid Factor Complement C4 Miscellaneous Test Crossmatch 11/19/16 11/19/16 11/20/16 05:00 12:43 00:40 WBC RBC Hgb Hct MCV MCH MCHC RDW Plt Count Lymph % (Auto) [place] % (Auto) Lymph # [place] # Baso # Seg Neutrophils % Seg Neuts % (Manual) Lymphocytes % (Manual) Monocytes % (Manual) Eosinophils % (Manual) Basophils % (Manual) Nucleated RBC % Seg Neutrophils # Seg Neutrophils # Man Lymphocytes # (Manual) Monocytes # (Manual) Eosinophils # (Manual) Basophils # (Manual) PT INR Fibrinogen dRVVT Confirm Interp Factor V Activity POC ABG pH POC ABG pCO2 POC ABG pO2 ABG pO2 ABG HCO3 ABG Base Excess ABG Hemoglobin Oxyhemoglobin Sodium Potassium Chloride Carbon Dioxide BUN Creatinine Glucose POC Glucose 110 H 125 H 136 H Lactic Acid Calcium Phosphorus Magnesium Direct Bilirubin AST ALT Alkaline Phosphatase Lactate Dehydrogenase Troponin T C-Reactive Protein Total Protein Albumin Prealbumin Triglycerides Cholesterol LDL Cholesterol Direct HDL Cholesterol Urine pH Urine WBC (Auto) Urine Creatinine Urine Total Protein Fluid Total Protein Vancomycin Trough Rheumatoid Factor Complement C4 Miscellaneous Test Crossmatch 11/20/16 11/20/16 11/20/16 05:00 05:00 05:51 WBC 13.1 H RBC 2.74 L Hgb 7.7 L Hct 23.6 L MCV MCH MCHC RDW 16.9 H Plt Count Lymph % (Auto) [place] % (Auto) 10.8 H Lymph # [place] # 1.4 H Baso # Seg Neutrophils % Seg Neuts % (Manual) Lymphocytes % (Manual) Monocytes % (Manual) Eosinophils % (Manual) Basophils % (Manual) Nucleated RBC % Seg Neutrophils # 7.9 H Seg Neutrophils # Man Lymphocytes # (Manual) Monocytes # (Manual) Eosinophils # (Manual) Basophils # (Manual) PT INR Fibrinogen dRVVT Confirm Interp Factor V Activity POC ABG pH POC ABG pCO2 POC ABG pO2 ABG pO2 ABG HCO3 ABG Base Excess ABG Hemoglobin Oxyhemoglobin Sodium Potassium Chloride Carbon Dioxide BUN 31 H Creatinine 1.8 H Glucose 129 H POC Glucose 133 H Lactic Acid Calcium Phosphorus Magnesium Direct Bilirubin AST ALT Alkaline Phosphatase Lactate Dehydrogenase Troponin T C-Reactive Protein Total Protein Albumin Prealbumin Triglycerides Cholesterol LDL Cholesterol Direct HDL Cholesterol Urine pH Urine WBC (Auto) Urine Creatinine Urine Total Protein Fluid Total Protein Vancomycin Trough Rheumatoid Factor Complement C4 Miscellaneous Test Crossmatch 11/20/16 11/20/16 11/21/16 12:40 18:10 01:20 WBC RBC Hgb Hct MCV MCH MCHC RDW Plt Count Lymph % (Auto) [place] % (Auto) Lymph # [place] # Baso # Seg Neutrophils % Seg Neuts % (Manual) Lymphocytes % (Manual) Monocytes % (Manual) Eosinophils % (Manual) Basophils % (Manual) Nucleated RBC % Seg Neutrophils # Seg Neutrophils # Man Lymphocytes # (Manual) Monocytes # (Manual) Eosinophils # (Manual) Basophils # (Manual) PT INR Fibrinogen dRVVT Confirm Interp Factor V Activity POC ABG pH POC ABG pCO2 POC ABG pO2 ABG pO2 ABG HCO3 ABG Base Excess ABG Hemoglobin Oxyhemoglobin Sodium Potassium Chloride Carbon Dioxide BUN Creatinine Glucose POC Glucose 134 H 138 H 136 H Lactic Acid Calcium Phosphorus Magnesium Direct Bilirubin AST ALT Alkaline Phosphatase Lactate Dehydrogenase Troponin T C-Reactive Protein Total Protein Albumin Prealbumin Triglycerides Cholesterol LDL Cholesterol Direct HDL Cholesterol Urine pH Urine WBC (Auto) Urine Creatinine Urine Total Protein Fluid Total Protein Vancomycin Trough Rheumatoid Factor Complement C4 Miscellaneous Test Crossmatch 11/21/16 11/21/16 11/21/16 07:04 07:45 07:45 WBC 22.0 H RBC 2.91 L Hgb 8.2 L Hct 25.4 L MCV MCH MCHC RDW 17.1 H Plt Count Lymph % (Auto) [place] % (Auto) Lymph # [place] # Baso # Seg Neutrophils % Seg Neuts % (Manual) Lymphocytes % (Manual) 8.0 L Monocytes % (Manual) Eosinophils % (Manual) Basophils % (Manual) Nucleated RBC % Seg Neutrophils # Seg Neutrophils # Man 14.7 H Lymphocytes # (Manual) Monocytes # (Manual) 1.1 H Eosinophils # (Manual) Basophils # (Manual) PT INR Fibrinogen dRVVT Confirm Interp Factor V Activity POC ABG pH POC ABG pCO2 POC ABG pO2 ABG pO2 ABG HCO3 ABG Base Excess ABG Hemoglobin Oxyhemoglobin Sodium Potassium Chloride Carbon Dioxide BUN 42 H Creatinine 2.0 H Glucose POC Glucose 108 H Lactic Acid Calcium Phosphorus Magnesium Direct Bilirubin AST ALT Alkaline Phosphatase Lactate Dehydrogenase Troponin T C-Reactive Protein Total Protein Albumin Prealbumin Triglycerides Cholesterol LDL Cholesterol Direct HDL Cholesterol Urine pH Urine WBC (Auto) Urine Creatinine Urine Total Protein Fluid Total Protein Vancomycin Trough Rheumatoid Factor Complement C4 Miscellaneous Test Crossmatch 11/21/16 11/21/16 11/21/16 08:38 10:09 11:20 WBC RBC Hgb Hct MCV MCH MCHC RDW Plt Count Lymph % (Auto) [place] % (Auto) Lymph # [place] # Baso # Seg Neutrophils % Seg Neuts % (Manual) Lymphocytes % (Manual) Monocytes % (Manual) Eosinophils % (Manual) Basophils % (Manual) Nucleated RBC % Seg Neutrophils # Seg Neutrophils # Man Lymphocytes # (Manual) Monocytes # (Manual) Eosinophils # (Manual) Basophils # (Manual) PT INR Fibrinogen dRVVT Confirm Interp Factor V Activity POC ABG pH 7.346 L POC ABG pCO2 34.4 L POC ABG pO2 314 H ABG pO2 ABG HCO3 ABG Base Excess ABG Hemoglobin Oxyhemoglobin Sodium Potassium Chloride Carbon Dioxide BUN Creatinine Glucose POC Glucose 195 H 153 H Lactic Acid Calcium Phosphorus Magnesium Direct Bilirubin AST ALT Alkaline Phosphatase Lactate Dehydrogenase Troponin T C-Reactive Protein Total Protein Albumin Prealbumin Triglycerides Cholesterol LDL Cholesterol Direct HDL Cholesterol Urine pH Urine WBC (Auto) Urine Creatinine Urine Total Protein Fluid Total Protein Vancomycin Trough Rheumatoid Factor Complement C4 Miscellaneous Test Crossmatch 11/21/16 11/22/16 11/22/16 23:37 04:48 05:00 WBC 29.7 H RBC 2.73 L Hgb 7.5 L Hct 24.2 L MCV MCH 27 L MCHC RDW 17.4 H Plt Count Lymph % (Auto) [place] % (Auto) Lymph # [place] # Baso # Seg Neutrophils % Seg Neuts % (Manual) Lymphocytes % (Manual) 7.0 L Monocytes % (Manual) Eosinophils % (Manual) Basophils % (Manual) Nucleated RBC % Seg Neutrophils # Seg Neutrophils # Man 15.4 H Lymphocytes # (Manual) Monocytes # (Manual) Eosinophils # (Manual) Basophils # (Manual) PT INR Fibrinogen dRVVT Confirm Interp Factor V Activity POC ABG pH POC ABG pCO2 24.6 L POC ABG pO2 189 H ABG pO2 ABG HCO3 ABG Base Excess ABG Hemoglobin Oxyhemoglobin Sodium Potassium Chloride Carbon Dioxide BUN Creatinine Glucose POC Glucose 65 L Lactic Acid Calcium Phosphorus Magnesium Direct Bilirubin AST ALT Alkaline Phosphatase Lactate Dehydrogenase Troponin T C-Reactive Protein Total Protein Albumin Prealbumin Triglycerides Cholesterol LDL Cholesterol Direct HDL Cholesterol Urine pH Urine WBC (Auto) Urine Creatinine Urine Total Protein Fluid Total Protein Vancomycin Trough Rheumatoid Factor Complement C4 Miscellaneous Test Crossmatch 11/22/16 11/23/16 11/23/16 05:00 03:44 04:06 WBC RBC 2.52 L Hgb 7.2 L Hct 21.5 L MCV MCH MCHC RDW 17.1 H Plt Count Lymph % (Auto) [place] % (Auto) 12.4 H Lymph # [place] # 1.4 H Baso # Seg Neutrophils % Seg Neuts % (Manual) Lymphocytes % (Manual) Monocytes % (Manual) Eosinophils % (Manual) Basophils % (Manual) Nucleated RBC % Seg Neutrophils # Seg Neutrophils # Man Lymphocytes # (Manual) Monocytes # (Manual) Eosinophils # (Manual) Basophils # (Manual) PT INR Fibrinogen dRVVT Confirm Interp Factor V Activity POC ABG pH 7.493 H POC ABG pCO2 29.5 L POC ABG pO2 49 L ABG pO2 ABG HCO3 ABG Base Excess ABG Hemoglobin Oxyhemoglobin Sodium 134 L Potassium Chloride 95.9 L Carbon Dioxide 14 L D BUN 51 H Creatinine 2.6 H Glucose POC Glucose Lactic Acid Calcium Phosphorus Magnesium Direct Bilirubin AST ALT Alkaline Phosphatase Lactate Dehydrogenase Troponin T C-Reactive Protein Total Protein Albumin Prealbumin Triglycerides Cholesterol LDL Cholesterol Direct HDL Cholesterol Urine pH Urine WBC (Auto) Urine Creatinine Urine Total Protein Fluid Total Protein Vancomycin Trough Rheumatoid Factor Complement C4 Miscellaneous Test Crossmatch 11/23/16 11/23/16 11/24/16 04:06 11:29 06:39 WBC RBC Hgb Hct MCV MCH MCHC RDW Plt Count Lymph % (Auto) [place] % (Auto) Lymph # [place] # Baso # Seg Neutrophils % Seg Neuts % (Manual) Lymphocytes % (Manual) Monocytes % (Manual) Eosinophils % (Manual) Basophils % (Manual) Nucleated RBC % Seg Neutrophils # Seg Neutrophils # Man Lymphocytes # (Manual) Monocytes # (Manual) Eosinophils # (Manual) Basophils # (Manual) PT INR Fibrinogen dRVVT Confirm Interp Factor V Activity POC ABG pH POC ABG pCO2 POC ABG pO2 ABG pO2 ABG HCO3 ABG Base Excess ABG Hemoglobin Oxyhemoglobin Sodium 136 L Potassium Chloride 95.2 L Carbon Dioxide BUN 60 H Creatinine 2.9 H Glucose POC Glucose 69 L 305 H Lactic Acid Calcium Phosphorus Magnesium 1.60 L Direct Bilirubin AST ALT Alkaline Phosphatase Lactate Dehydrogenase Troponin T C-Reactive Protein Total Protein Albumin Prealbumin Triglycerides Cholesterol LDL Cholesterol Direct HDL Cholesterol Urine pH Urine WBC (Auto) Urine Creatinine Urine Total Protein Fluid Total Protein Vancomycin Trough Rheumatoid Factor Complement C4 Miscellaneous Test Crossmatch 11/24/16 11/24/16 11/24/16 06:43 08:08 08:08 WBC 11.2 H RBC 2.47 L Hgb 6.8 L Hct 20.6 L MCV MCH MCHC RDW 17.0 H Plt Count Lymph % (Auto) [place] % (Auto) 10.3 H Lymph # [place] # 1.2 H Baso # Seg Neutrophils % Seg Neuts % (Manual) Lymphocytes % (Manual) Monocytes % (Manual) Eosinophils % (Manual) Basophils % (Manual) Nucleated RBC % Seg Neutrophils # Seg Neutrophils # Man Lymphocytes # (Manual) Monocytes # (Manual) Eosinophils # (Manual) Basophils # (Manual) PT INR Fibrinogen dRVVT Confirm Interp Factor V Activity POC ABG pH POC ABG pCO2 POC ABG pO2 ABG pO2 ABG HCO3 ABG Base Excess ABG Hemoglobin Oxyhemoglobin Sodium 135 L Potassium Chloride 96.3 L Carbon Dioxide BUN 61 H Creatinine 3.1 H Glucose POC Glucose 62 L Lactic Acid Calcium 8.2 L Phosphorus Magnesium Direct Bilirubin AST ALT Alkaline Phosphatase Lactate Dehydrogenase Troponin T C-Reactive Protein Total Protein Albumin Prealbumin Triglycerides Cholesterol LDL Cholesterol Direct HDL Cholesterol Urine pH Urine WBC (Auto) Urine Creatinine Urine Total Protein Fluid Total Protein Vancomycin Trough Rheumatoid Factor Complement C4 Miscellaneous Test Crossmatch 11/24/16 11/24/16 11/24/16 08:34 11:20 12:41 WBC RBC Hgb Hct MCV MCH MCHC RDW Plt Count Lymph % (Auto) [place] % (Auto) Lymph # [place] # Baso # Seg Neutrophils % Seg Neuts % (Manual) Lymphocytes % (Manual) Monocytes % (Manual) Eosinophils % (Manual) Basophils % (Manual) Nucleated RBC % Seg Neutrophils # Seg Neutrophils # Man Lymphocytes # (Manual) Monocytes # (Manual) Eosinophils # (Manual) Basophils # (Manual) PT INR Fibrinogen dRVVT Confirm Interp Factor V Activity POC ABG pH POC ABG pCO2 POC ABG pO2 ABG pO2 ABG HCO3 ABG Base Excess ABG Hemoglobin Oxyhemoglobin Sodium Potassium Chloride Carbon Dioxide BUN Creatinine Glucose POC Glucose 108 H Lactic Acid Calcium Phosphorus Magnesium 1.60 L Direct Bilirubin AST ALT Alkaline Phosphatase Lactate Dehydrogenase Troponin T C-Reactive Protein Total Protein Albumin Prealbumin Triglycerides Cholesterol LDL Cholesterol Direct HDL Cholesterol Urine pH Urine WBC (Auto) Urine Creatinine Urine Total Protein Fluid Total Protein Vancomycin Trough Rheumatoid Factor Complement C4 Miscellaneous Test Crossmatch See Detail 11/25/16 11/25/16 11/25/16 00:03 04:42 04:42 WBC RBC 3.03 L Hgb 8.6 L Hct 25.3 L MCV MCH MCHC RDW 16.2 H Plt Count Lymph % (Auto) [place] % (Auto) 8.1 H Lymph # [place] # Baso # Seg Neutrophils % 71.3 H Seg Neuts % (Manual) Lymphocytes % (Manual) Monocytes % (Manual) Eosinophils % (Manual) Basophils % (Manual) Nucleated RBC % Seg Neutrophils # Seg Neutrophils # Man Lymphocytes # (Manual) Monocytes # (Manual) Eosinophils # (Manual) Basophils # (Manual) PT INR Fibrinogen dRVVT Confirm Interp Factor V Activity POC ABG pH POC ABG pCO2 POC ABG pO2 ABG pO2 ABG HCO3 ABG Base Excess ABG Hemoglobin Oxyhemoglobin Sodium Potassium Chloride Carbon Dioxide BUN 61 H Creatinine 3.0 H Glucose 102 H POC Glucose 113 H Lactic Acid Calcium 8.2 L Phosphorus Magnesium Direct Bilirubin AST ALT Alkaline Phosphatase 142 H Lactate Dehydrogenase Troponin T C-Reactive Protein Total Protein 5.7 L Albumin 1.5 L Prealbumin Triglycerides Cholesterol LDL Cholesterol Direct HDL Cholesterol Urine pH Urine WBC (Auto) Urine Creatinine Urine Total Protein Fluid Total Protein Vancomycin Trough Rheumatoid Factor Complement C4 Miscellaneous Test Crossmatch 11/25/16 11/25/16 11/25/16 05:12 11:31 14:12 WBC RBC Hgb Hct MCV MCH MCHC RDW Plt Count Lymph % (Auto) [place] % (Auto) Lymph # [place] # Baso # Seg Neutrophils % Seg Neuts % (Manual) Lymphocytes % (Manual) Monocytes % (Manual) Eosinophils % (Manual) Basophils % (Manual) Nucleated RBC % Seg Neutrophils # Seg Neutrophils # Man Lymphocytes # (Manual) Monocytes # (Manual) Eosinophils # (Manual) Basophils # (Manual) PT INR Fibrinogen dRVVT Confirm Interp Factor V Activity POC ABG pH 7.487 H POC ABG pCO2 POC ABG pO2 153 H ABG pO2 ABG HCO3 ABG Base Excess ABG Hemoglobin Oxyhemoglobin Sodium Potassium Chloride Carbon Dioxide BUN Creatinine Glucose POC Glucose 131 H 140 H Lactic Acid Calcium Phosphorus Magnesium Direct Bilirubin AST ALT Alkaline Phosphatase Lactate Dehydrogenase Troponin T C-Reactive Protein Total Protein Albumin Prealbumin Triglycerides Cholesterol LDL Cholesterol Direct HDL Cholesterol Urine pH Urine WBC (Auto) Urine Creatinine Urine Total Protein Fluid Total Protein Vancomycin Trough Rheumatoid Factor Complement C4 Miscellaneous Test Crossmatch 11/25/16 11/26/1617 17:23 00:09 05:13 WBC RBC 2.94 L Hgb 8.4 L Hct 24.6 L MCV MCH MCHC RDW 16.4 H Plt Count Lymph % (Auto) [place] % (Auto) 12.3 H Lymph # [place] # 1.1 H Baso # Seg Neutrophils % Seg Neuts % (Manual) Lymphocytes % (Manual) Monocytes % (Manual) Eosinophils % (Manual) Basophils % (Manual) Nucleated RBC % Seg Neutrophils # Seg Neutrophils # Man Lymphocytes # (Manual) Monocytes # (Manual) Eosinophils # (Manual) Basophils # (Manual) PT INR Fibrinogen dRVVT Confirm Interp Factor V Activity POC ABG pH POC ABG pCO2 POC ABG pO2 ABG pO2 ABG HCO3 ABG Base Excess ABG Hemoglobin Oxyhemoglobin Sodium Potassium Chloride Carbon Dioxide BUN Creatinine Glucose POC Glucose 146 H 112 H Lactic Acid Calcium Phosphorus Magnesium Direct Bilirubin AST ALT Alkaline Phosphatase Lactate Dehydrogenase Troponin T C-Reactive Protein Total Protein Albumin Prealbumin Triglycerides Cholesterol LDL Cholesterol Direct HDL Cholesterol Urine pH Urine WBC (Auto) Urine Creatinine Urine Total Protein Fluid Total Protein Vancomycin Trough Rheumatoid Factor Complement C4 Miscellaneous Test Crossmatch 11/26/16 11/26/16 11/26/16 05:13 05:28 11:53 WBC RBC Hgb Hct MCV MCH MCHC RDW Plt Count Lymph % (Auto) [place] % (Auto) Lymph # [place] # Baso # Seg Neutrophils % Seg Neuts % (Manual) Lymphocytes % (Manual) Monocytes % (Manual) Eosinophils % (Manual) Basophils % (Manual) Nucleated RBC % Seg Neutrophils # Seg Neutrophils # Man Lymphocytes # (Manual) Monocytes # (Manual) Eosinophils # (Manual) Basophils # (Manual) PT INR Fibrinogen dRVVT Confirm Interp Factor V Activity POC ABG pH POC ABG pCO2 POC ABG pO2 ABG pO2 ABG HCO3 ABG Base Excess ABG Hemoglobin Oxyhemoglobin Sodium Potassium Chloride 97.8 L Carbon Dioxide BUN 37 H Creatinine 2.0 H Glucose 109 H POC Glucose 117 H 111 H Lactic Acid Calcium 7.9 L Phosphorus 1.80 L D Magnesium Direct Bilirubin AST ALT Alkaline Phosphatase Lactate Dehydrogenase Troponin T C-Reactive Protein Total Protein Albumin Prealbumin Triglycerides Cholesterol LDL Cholesterol Direct HDL Cholesterol Urine pH Urine WBC (Auto) Urine Creatinine Urine Total Protein Fluid Total Protein Vancomycin Trough Rheumatoid Factor Complement C4 Miscellaneous Test Crossmatch 11/26/16 11/27/16 11/27/16 17:14 04:50 06:02 WBC RBC Hgb Hct MCV MCH MCHC RDW Plt Count Lymph % (Auto) [place] % (Auto) Lymph # [place] # Baso # Seg Neutrophils % Seg Neuts % (Manual) Lymphocytes % (Manual) Monocytes % (Manual) Eosinophils % (Manual) Basophils % (Manual) Nucleated RBC % Seg Neutrophils # Seg Neutrophils # Man Lymphocytes # (Manual) Monocytes # (Manual) Eosinophils # (Manual) Basophils # (Manual) PT INR Fibrinogen dRVVT Confirm Interp Factor V Activity POC ABG pH POC ABG pCO2 POC ABG pO2 ABG pO2 75.2 L ABG HCO3 26.4 H ABG Base Excess ABG Hemoglobin 7.6 L Oxyhemoglobin 94.8 L Sodium Potassium Chloride Carbon Dioxide BUN 49 H Creatinine 2.3 H Glucose POC Glucose 115 H Lactic Acid Calcium Phosphorus 1.50 L Magnesium Direct Bilirubin AST ALT Alkaline Phosphatase Lactate Dehydrogenase Troponin T C-Reactive Protein Total Protein Albumin Prealbumin Triglycerides Cholesterol LDL Cholesterol Direct HDL Cholesterol Urine pH Urine WBC (Auto) Urine Creatinine Urine Total Protein Fluid Total Protein Vancomycin Trough Rheumatoid Factor Complement C4 Miscellaneous Test Crossmatch 11/27/16 11/27/16 11/27/16 06:02 11:25 17:25 WBC 11.6 H RBC 2.75 L Hgb 7.6 L Hct 23.4 L MCV MCH MCHC RDW 16.5 H Plt Count Lymph % (Auto) [place] % (Auto) Lymph # [place] # Baso # Seg Neutrophils % Seg Neuts % (Manual) Lymphocytes % (Manual) Monocytes % (Manual) Eosinophils % (Manual) Basophils % (Manual) Nucleated RBC % Seg Neutrophils # Seg Neutrophils # Man Lymphocytes # (Manual) Monocytes # (Manual) Eosinophils # (Manual) Basophils # (Manual) PT INR Fibrinogen dRVVT Confirm Interp Factor V Activity POC ABG pH POC ABG pCO2 POC ABG pO2 ABG pO2 ABG HCO3 ABG Base Excess ABG Hemoglobin Oxyhemoglobin Sodium Potassium Chloride Carbon Dioxide BUN Creatinine Glucose POC Glucose 114 H 126 H Lactic Acid Calcium Phosphorus Magnesium Direct Bilirubin AST ALT Alkaline Phosphatase Lactate Dehydrogenase Troponin T C-Reactive Protein Total Protein Albumin Prealbumin Triglycerides Cholesterol LDL Cholesterol Direct HDL Cholesterol Urine pH Urine WBC (Auto) Urine Creatinine Urine Total Protein Fluid Total Protein Vancomycin Trough Rheumatoid Factor Complement C4 Miscellaneous Test Crossmatch 11/28/16 11/28/16 11/28/16 04:45 05:33 05:44 WBC RBC Hgb Hct MCV MCH MCHC RDW Plt Count Lymph % (Auto) [place] % (Auto) Lymph # [place] # Baso # Seg Neutrophils % Seg Neuts % (Manual) Lymphocytes % (Manual) Monocytes % (Manual) Eosinophils % (Manual) Basophils % (Manual) Nucleated RBC % Seg Neutrophils # Seg Neutrophils # Man Lymphocytes # (Manual) Monocytes # (Manual) Eosinophils # (Manual) Basophils # (Manual) PT INR Fibrinogen dRVVT Confirm Interp Factor V Activity POC ABG pH POC ABG pCO2 POC ABG pO2 ABG pO2 99.3 H ABG HCO3 ABG Base Excess ABG Hemoglobin 8.3 L Oxyhemoglobin Sodium Potassium Chloride Carbon Dioxide BUN 63 H Creatinine 2.4 H Glucose 102 H POC Glucose 108 H Lactic Acid Calcium Phosphorus 1.80 L Magnesium Direct Bilirubin AST ALT Alkaline Phosphatase Lactate Dehydrogenase Troponin T C-Reactive Protein Total Protein Albumin Prealbumin Triglycerides Cholesterol LDL Cholesterol Direct HDL Cholesterol Urine pH Urine WBC (Auto) Urine Creatinine Urine Total Protein Fluid Total Protein Vancomycin Trough Rheumatoid Factor Complement C4 Miscellaneous Test Crossmatch 11/28/16 11/28/16 11/28/16 12:31 16:09 23:46 WBC RBC Hgb Hct MCV MCH MCHC RDW Plt Count Lymph % (Auto) [place] % (Auto) Lymph # [place] # Baso # Seg Neutrophils % Seg Neuts % (Manual) Lymphocytes % (Manual) Monocytes % (Manual) Eosinophils % (Manual) Basophils % (Manual) Nucleated RBC % Seg Neutrophils # Seg Neutrophils # Man Lymphocytes # (Manual) Monocytes # (Manual) Eosinophils # (Manual) Basophils # (Manual) PT INR Fibrinogen dRVVT Confirm Interp Factor V Activity POC ABG pH POC ABG pCO2 POC ABG pO2 ABG pO2 ABG HCO3 ABG Base Excess ABG Hemoglobin Oxyhemoglobin Sodium Potassium Chloride Carbon Dioxide BUN Creatinine Glucose POC Glucose 126 H 111 H 119 H Lactic Acid Calcium Phosphorus Magnesium Direct Bilirubin AST ALT Alkaline Phosphatase Lactate Dehydrogenase Troponin T C-Reactive Protein Total Protein Albumin Prealbumin Triglycerides Cholesterol LDL Cholesterol Direct HDL Cholesterol Urine pH Urine WBC (Auto) Urine Creatinine Urine Total Protein Fluid Total Protein Vancomycin Trough Rheumatoid Factor Complement C4 Miscellaneous Test Crossmatch 11/29/16 11/29/16 11/29/16 03:33 04:52 05:10 WBC RBC Hgb Hct MCV MCH MCHC RDW Plt Count Lymph % (Auto) [place] % (Auto) Lymph # [place] # Baso # Seg Neutrophils % Seg Neuts % (Manual) Lymphocytes % (Manual) Monocytes % (Manual) Eosinophils % (Manual) Basophils % (Manual) Nucleated RBC % Seg Neutrophils # Seg Neutrophils # Man Lymphocytes # (Manual) Monocytes # (Manual) Eosinophils # (Manual) Basophils # (Manual) PT INR Fibrinogen dRVVT Confirm Interp Factor V Activity POC ABG pH POC ABG pCO2 POC ABG pO2 ABG pO2 ABG HCO3 ABG Base Excess ABG Hemoglobin 7.0 L Oxyhemoglobin 94.9 L Sodium Potassium Chloride Carbon Dioxide BUN 73 H Creatinine 2.7 H Glucose POC Glucose 108 H Lactic Acid Calcium Phosphorus Magnesium Direct Bilirubin AST ALT Alkaline Phosphatase Lactate Dehydrogenase Troponin T C-Reactive Protein Total Protein Albumin Prealbumin Triglycerides Cholesterol LDL Cholesterol Direct HDL Cholesterol Urine pH Urine WBC (Auto) Urine Creatinine Urine Total Protein Fluid Total Protein Vancomycin Trough Rheumatoid Factor Complement C4 Miscellaneous Test Crossmatch 11/29/16 11/29/16 11/29/16 12:16 18:05 23:46 WBC RBC Hgb Hct MCV MCH MCHC RDW Plt Count Lymph % (Auto) [place] % (Auto) Lymph # [place] # Baso # Seg Neutrophils % Seg Neuts % (Manual) Lymphocytes % (Manual) Monocytes % (Manual) Eosinophils % (Manual) Basophils % (Manual) Nucleated RBC % Seg Neutrophils # Seg Neutrophils # Man Lymphocytes # (Manual) Monocytes # (Manual) Eosinophils # (Manual) Basophils # (Manual) PT INR Fibrinogen dRVVT Confirm Interp Factor V Activity POC ABG pH POC ABG pCO2 POC ABG pO2 ABG pO2 ABG HCO3 ABG Base Excess ABG Hemoglobin Oxyhemoglobin Sodium Potassium Chloride Carbon Dioxide BUN Creatinine Glucose POC Glucose 133 H 146 H 141 H Lactic Acid Calcium Phosphorus Magnesium Direct Bilirubin AST ALT Alkaline Phosphatase Lactate Dehydrogenase Troponin T C-Reactive Protein Total Protein Albumin Prealbumin Triglycerides Cholesterol LDL Cholesterol Direct HDL Cholesterol Urine pH Urine WBC (Auto) Urine Creatinine Urine Total Protein Fluid Total Protein Vancomycin Trough Rheumatoid Factor Complement C4 Miscellaneous Test Crossmatch 11/30/16 11/30/16 11/30/16 04:17 04:17 04:32 WBC 12.0 H RBC 2.80 L Hgb 7.8 L Hct 23.6 L MCV MCH MCHC RDW 16.6 H Plt Count Lymph % (Auto) [place] % (Auto) 11.3 H Lymph # [place] # 1.4 H Baso # Seg Neutrophils % Seg Neuts % (Manual) Lymphocytes % (Manual) Monocytes % (Manual) Eosinophils % (Manual) Basophils % (Manual) Nucleated RBC % Seg Neutrophils # 8.2 H Seg Neutrophils # Man Lymphocytes # (Manual) Monocytes # (Manual) Eosinophils # (Manual) Basophils # (Manual) PT INR Fibrinogen dRVVT Confirm Interp Factor V Activity POC ABG pH POC ABG pCO2 POC ABG pO2 ABG pO2 ABG HCO3 ABG Base Excess ABG Hemoglobin Oxyhemoglobin Sodium 169 H* D Potassium 5.1 H Chloride 121.5 H Carbon Dioxide BUN 34 H Creatinine 1.3 H D Glucose 133 H POC Glucose 131 H Lactic Acid Calcium 10.3 H Phosphorus Magnesium Direct Bilirubin AST ALT Alkaline Phosphatase Lactate Dehydrogenase Troponin T C-Reactive Protein Total Protein Albumin Prealbumin Triglycerides Cholesterol LDL Cholesterol Direct HDL Cholesterol Urine pH Urine WBC (Auto) Urine Creatinine Urine Total Protein Fluid Total Protein Vancomycin Trough Rheumatoid Factor Complement C4 Miscellaneous Test Crossmatch 11/30/16 11/30/16 11/30/16 05:45 11:10 17:26 WBC RBC Hgb Hct MCV MCH MCHC RDW Plt Count Lymph % (Auto) [place] % (Auto) Lymph # [place] # Baso # Seg Neutrophils % Seg Neuts % (Manual) Lymphocytes % (Manual) Monocytes % (Manual) Eosinophils % (Manual) Basophils % (Manual) Nucleated RBC % Seg Neutrophils # Seg Neutrophils # Man Lymphocytes # (Manual) Monocytes # (Manual) Eosinophils # (Manual) Basophils # (Manual) PT INR Fibrinogen dRVVT Confirm Interp Factor V Activity POC ABG pH POC ABG pCO2 POC ABG pO2 ABG pO2 ABG HCO3 ABG Base Excess ABG Hemoglobin Oxyhemoglobin Sodium Potassium Chloride Carbon Dioxide BUN 45 H Creatinine 1.6 H Glucose 131 H POC Glucose 146 H 134 H Lactic Acid Calcium Phosphorus Magnesium Direct Bilirubin AST ALT Alkaline Phosphatase Lactate Dehydrogenase Troponin T C-Reactive Protein Total Protein Albumin Prealbumin Triglycerides Cholesterol LDL Cholesterol Direct HDL Cholesterol Urine pH Urine WBC (Auto) Urine Creatinine Urine Total Protein Fluid Total Protein Vancomycin Trough Rheumatoid Factor Complement C4 Miscellaneous Test Crossmatch 11/30/16 12/01/16 12/01/16 23:35 00:06 03:35 WBC RBC Hgb Hct MCV MCH MCHC RDW Plt Count Lymph % (Auto) [place] % (Auto) Lymph # [place] # Baso # Seg Neutrophils % Seg Neuts % (Manual) Lymphocytes % (Manual) Monocytes % (Manual) Eosinophils % (Manual) Basophils % (Manual) Nucleated RBC % Seg Neutrophils # Seg Neutrophils # Man Lymphocytes # (Manual) Monocytes # (Manual) Eosinophils # (Manual) Basophils # (Manual) PT INR Fibrinogen dRVVT Confirm Interp Factor V Activity POC ABG pH POC ABG pCO2 POC ABG pO2 ABG pO2 ABG HCO3 ABG Base Excess ABG Hemoglobin 6.9 L Oxyhemoglobin Sodium Potassium Chloride Carbon Dioxide BUN 58 H Creatinine 1.8 H Glucose 146 H POC Glucose 151 H Lactic Acid Calcium Phosphorus Magnesium Direct Bilirubin AST ALT Alkaline Phosphatase Lactate Dehydrogenase Troponin T C-Reactive Protein Total Protein Albumin Prealbumin Triglycerides Cholesterol LDL Cholesterol Direct HDL Cholesterol Urine pH Urine WBC (Auto) Urine Creatinine Urine Total Protein Fluid Total Protein Vancomycin Trough Rheumatoid Factor Complement C4 Miscellaneous Test Crossmatch 12/01/16 12/01/16 12/01/16 03:35 05:47 11:52 WBC 12.3 H RBC 2.82 L Hgb 7.8 L Hct 23.7 L MCV MCH MCHC RDW 16.7 H Plt Count Lymph % (Auto) [place] % (Auto) 9.8 H Lymph # [place] # 1.2 H Baso # Seg Neutrophils % Seg Neuts % (Manual) Lymphocytes % (Manual) Monocytes % (Manual) Eosinophils % (Manual) Basophils % (Manual) Nucleated RBC % Seg Neutrophils # 8.4 H Seg Neutrophils # Man Lymphocytes # (Manual) Monocytes # (Manual) Eosinophils # (Manual) Basophils # (Manual) PT INR Fibrinogen dRVVT Confirm Interp Factor V Activity POC ABG pH POC ABG pCO2 POC ABG pO2 ABG pO2 ABG HCO3 ABG Base Excess ABG Hemoglobin Oxyhemoglobin Sodium Potassium Chloride Carbon Dioxide BUN Creatinine Glucose POC Glucose 152 H 152 H Lactic Acid Calcium Phosphorus Magnesium Direct Bilirubin AST ALT Alkaline Phosphatase Lactate Dehydrogenase Troponin T C-Reactive Protein Total Protein Albumin Prealbumin Triglycerides Cholesterol LDL Cholesterol Direct HDL Cholesterol Urine pH Urine WBC (Auto) Urine Creatinine Urine Total Protein Fluid Total Protein Vancomycin Trough Rheumatoid Factor Complement C4 Miscellaneous Test Crossmatch 12/01/16 12/01/16 12/02/16 17:40 23:41 05:00 WBC RBC Hgb Hct MCV MCH MCHC RDW Plt Count Lymph % (Auto) [place] % (Auto) Lymph # [place] # Baso # Seg Neutrophils % Seg Neuts % (Manual) Lymphocytes % (Manual) Monocytes % (Manual) Eosinophils % (Manual) Basophils % (Manual) Nucleated RBC % Seg Neutrophils # Seg Neutrophils # Man Lymphocytes # (Manual) Monocytes # (Manual) Eosinophils # (Manual) Basophils # (Manual) PT INR Fibrinogen dRVVT Confirm Interp Factor V Activity POC ABG pH POC ABG pCO2 POC ABG pO2 ABG pO2 ABG HCO3 ABG Base Excess ABG Hemoglobin Oxyhemoglobin Sodium Potassium Chloride Carbon Dioxide BUN 45 H Creatinine Glucose 115 H POC Glucose 140 H 144 H Lactic Acid Calcium Phosphorus Magnesium Direct Bilirubin AST ALT Alkaline Phosphatase Lactate Dehydrogenase Troponin T C-Reactive Protein Total Protein Albumin Prealbumin Triglycerides Cholesterol LDL Cholesterol Direct HDL Cholesterol Urine pH Urine WBC (Auto) Urine Creatinine Urine Total Protein Fluid Total Protein Vancomycin Trough Rheumatoid Factor Complement C4 Miscellaneous Test Crossmatch 12/02/16 12/02/16 12/02/16 05:31 11:20 17:38 WBC RBC Hgb Hct MCV MCH MCHC RDW Plt Count Lymph % (Auto) [place] % (Auto) Lymph # [place] # Baso # Seg Neutrophils % Seg Neuts % (Manual) Lymphocytes % (Manual) Monocytes % (Manual) Eosinophils % (Manual) Basophils % (Manual) Nucleated RBC % Seg Neutrophils # Seg Neutrophils # Man Lymphocytes # (Manual) Monocytes # (Manual) Eosinophils # (Manual) Basophils # (Manual) PT INR Fibrinogen dRVVT Confirm Interp Factor V Activity POC ABG pH POC ABG pCO2 POC ABG pO2 ABG pO2 ABG HCO3 ABG Base Excess ABG Hemoglobin Oxyhemoglobin Sodium Potassium Chloride Carbon Dioxide BUN Creatinine Glucose POC Glucose 136 H 177 H 139 H Lactic Acid Calcium Phosphorus Magnesium Direct Bilirubin AST ALT Alkaline Phosphatase Lactate Dehydrogenase Troponin T C-Reactive Protein Total Protein Albumin Prealbumin Triglycerides Cholesterol LDL Cholesterol Direct HDL Cholesterol Urine pH Urine WBC (Auto) Urine Creatinine Urine Total Protein Fluid Total Protein Vancomycin Trough Rheumatoid Factor Complement C4 Miscellaneous Test Crossmatch 12/02/16 12/03/16 12/03/16 23:43 04:00 04:00 WBC 20.4 H RBC 2.74 L Hgb 7.4 L Hct 23.6 L MCV MCH 27 L MCHC RDW 17.1 H Plt Count Lymph % (Auto) [place] % (Auto) Lymph # [place] # Baso # Seg Neutrophils % Seg Neuts % (Manual) 31.0 L Lymphocytes % (Manual) Monocytes % (Manual) Eosinophils % (Manual) Basophils % (Manual) Nucleated RBC % Seg Neutrophils # Seg Neutrophils # Man Lymphocytes # (Manual) Monocytes # (Manual) Eosinophils # (Manual) Basophils # (Manual) PT INR Fibrinogen dRVVT Confirm Interp Factor V Activity POC ABG pH POC ABG pCO2 POC ABG pO2 ABG pO2 ABG HCO3 ABG Base Excess ABG Hemoglobin Oxyhemoglobin Sodium Potassium Chloride Carbon Dioxide BUN 61 H Creatinine 1.6 H Glucose 119 H POC Glucose 158 H Lactic Acid Calcium Phosphorus Magnesium Direct Bilirubin AST ALT Alkaline Phosphatase Lactate Dehydrogenase Troponin T C-Reactive Protein Total Protein Albumin Prealbumin Triglycerides Cholesterol LDL Cholesterol Direct HDL Cholesterol Urine pH Urine WBC (Auto) Urine Creatinine Urine Total Protein Fluid Total Protein Vancomycin Trough Rheumatoid Factor Complement C4 Miscellaneous Test Crossmatch 12/03/16 12/03/16 12/03/16 05:02 12:11 18:16 WBC RBC Hgb Hct MCV MCH MCHC RDW Plt Count Lymph % (Auto) [place] % (Auto) Lymph # [place] # Baso # Seg Neutrophils % Seg Neuts % (Manual) Lymphocytes % (Manual) Monocytes % (Manual) Eosinophils % (Manual) Basophils % (Manual) Nucleated RBC % Seg Neutrophils # Seg Neutrophils # Man Lymphocytes # (Manual) Monocytes # (Manual) Eosinophils # (Manual) Basophils # (Manual) PT INR Fibrinogen dRVVT Confirm Interp Factor V Activity POC ABG pH POC ABG pCO2 POC ABG pO2 ABG pO2 ABG HCO3 ABG Base Excess ABG Hemoglobin Oxyhemoglobin Sodium Potassium Chloride Carbon Dioxide BUN Creatinine Glucose POC Glucose 146 H 157 H 124 H Lactic Acid Calcium Phosphorus Magnesium Direct Bilirubin AST ALT Alkaline Phosphatase Lactate Dehydrogenase Troponin T C-Reactive Protein Total Protein Albumin Prealbumin Triglycerides Cholesterol LDL Cholesterol Direct HDL Cholesterol Urine pH Urine WBC (Auto) Urine Creatinine Urine Total Protein Fluid Total Protein Vancomycin Trough Rheumatoid Factor Complement C4 Miscellaneous Test Crossmatch 12/03/16 12/04/16 12/04/16 23:41 04:00 04:45 WBC RBC Hgb Hct MCV MCH MCHC RDW Plt Count Lymph % (Auto) [place] % (Auto) Lymph # [place] # Baso # Seg Neutrophils % Seg Neuts % (Manual) Lymphocytes % (Manual) Monocytes % (Manual) Eosinophils % (Manual) Basophils % (Manual) Nucleated RBC % Seg Neutrophils # Seg Neutrophils # Man Lymphocytes # (Manual) Monocytes # (Manual) Eosinophils # (Manual) Basophils # (Manual) PT INR Fibrinogen dRVVT Confirm Interp Factor V Activity POC ABG pH POC ABG pCO2 POC ABG pO2 ABG pO2 ABG HCO3 ABG Base Excess ABG Hemoglobin Oxyhemoglobin Sodium Potassium Chloride Carbon Dioxide BUN 76 H Creatinine 1.6 H Glucose POC Glucose 130 H 136 H Lactic Acid Calcium Phosphorus Magnesium Direct Bilirubin AST ALT Alkaline Phosphatase 155 H Lactate Dehydrogenase Troponin T C-Reactive Protein Total Protein 5.5 L Albumin 1.5 L Prealbumin Triglycerides Cholesterol LDL Cholesterol Direct HDL Cholesterol Urine pH Urine WBC (Auto) Urine Creatinine Urine Total Protein Fluid Total Protein Vancomycin Trough Rheumatoid Factor Complement C4 Miscellaneous Test Crossmatch 12/04/16 12/04/16 12/05/16 12:08 17:23 00:10 WBC RBC Hgb Hct MCV MCH MCHC RDW Plt Count Lymph % (Auto) [place] % (Auto) Lymph # [place] # Baso # Seg Neutrophils % Seg Neuts % (Manual) Lymphocytes % (Manual) Monocytes % (Manual) Eosinophils % (Manual) Basophils % (Manual) Nucleated RBC % Seg Neutrophils # Seg Neutrophils # Man Lymphocytes # (Manual) Monocytes # (Manual) Eosinophils # (Manual) Basophils # (Manual) PT INR Fibrinogen dRVVT Confirm Interp Factor V Activity POC ABG pH POC ABG pCO2 POC ABG pO2 ABG pO2 ABG HCO3 ABG Base Excess ABG Hemoglobin Oxyhemoglobin Sodium Potassium Chloride Carbon Dioxide BUN Creatinine Glucose POC Glucose 114 H 129 H 124 H Lactic Acid Calcium Phosphorus Magnesium Direct Bilirubin AST ALT Alkaline Phosphatase Lactate Dehydrogenase Troponin T C-Reactive Protein Total Protein Albumin Prealbumin Triglycerides Cholesterol LDL Cholesterol Direct HDL Cholesterol Urine pH Urine WBC (Auto) Urine Creatinine Urine Total Protein Fluid Total Protein Vancomycin Trough Rheumatoid Factor Complement C4 Miscellaneous Test Crossmatch 12/05/16 12/05/16 12/05/16 05:00 05:00 05:18 WBC RBC Hgb Hct MCV MCH MCHC RDW Plt Count Lymph % (Auto) [place] % (Auto) Lymph # [place] # Baso # Seg Neutrophils % Seg Neuts % (Manual) Lymphocytes % (Manual) Monocytes % (Manual) Eosinophils % (Manual) Basophils % (Manual) Nucleated RBC % Seg Neutrophils # Seg Neutrophils # Man Lymphocytes # (Manual) Monocytes # (Manual) Eosinophils # (Manual) Basophils # (Manual) PT INR Fibrinogen dRVVT Confirm Interp Factor V Activity POC ABG pH POC ABG pCO2 POC ABG pO2 ABG pO2 ABG HCO3 ABG Base Excess ABG Hemoglobin Oxyhemoglobin Sodium Potassium Chloride Carbon Dioxide 21 L BUN 85 H Creatinine 1.9 H Glucose 131 H POC Glucose 154 H Lactic Acid Calcium Phosphorus Magnesium Direct Bilirubin AST ALT Alkaline Phosphatase Lactate Dehydrogenase Troponin T C-Reactive Protein 19.30 H Total Protein Albumin Prealbumin Triglycerides Cholesterol LDL Cholesterol Direct HDL Cholesterol Urine pH Urine WBC (Auto) Urine Creatinine Urine Total Protein Fluid Total Protein Vancomycin Trough Rheumatoid Factor Complement C4 Miscellaneous Test Crossmatch 12/05/16 12/05/16 12/05/16 11:43 17:46 23:25 WBC RBC Hgb Hct MCV MCH MCHC RDW Plt Count Lymph % (Auto) [place] % (Auto) Lymph # [place] # Baso # Seg Neutrophils % Seg Neuts % (Manual) Lymphocytes % (Manual) Monocytes % (Manual) Eosinophils % (Manual) Basophils % (Manual) Nucleated RBC % Seg Neutrophils # Seg Neutrophils # Man Lymphocytes # (Manual) Monocytes # (Manual) Eosinophils # (Manual) Basophils # (Manual) PT INR Fibrinogen dRVVT Confirm Interp Factor V Activity POC ABG pH POC ABG pCO2 POC ABG pO2 ABG pO2 ABG HCO3 ABG Base Excess ABG Hemoglobin Oxyhemoglobin Sodium Potassium Chloride Carbon Dioxide BUN Creatinine Glucose POC Glucose 117 H 113 H 111 H Lactic Acid Calcium Phosphorus Magnesium Direct Bilirubin AST ALT Alkaline Phosphatase Lactate Dehydrogenase Troponin T C-Reactive Protein Total Protein Albumin Prealbumin Triglycerides Cholesterol LDL Cholesterol Direct HDL Cholesterol Urine pH Urine WBC (Auto) Urine Creatinine Urine Total Protein Fluid Total Protein Vancomycin Trough Rheumatoid Factor Complement C4 Miscellaneous Test Crossmatch 12/05/16 12/06/16 12/06/16 Unknown 04:58 06:00 WBC RBC Hgb Hct MCV MCH MCHC RDW Plt Count Lymph % (Auto) [place] % (Auto) Lymph # [place] # Baso # Seg Neutrophils % Seg Neuts % (Manual) Lymphocytes % (Manual) Monocytes % (Manual) Eosinophils % (Manual) Basophils % (Manual) Nucleated RBC % Seg Neutrophils # Seg Neutrophils # Man Lymphocytes # (Manual) Monocytes # (Manual) Eosinophils # (Manual) Basophils # (Manual) PT INR Fibrinogen dRVVT Confirm Interp Factor V Activity POC ABG pH POC ABG pCO2 POC ABG pO2 ABG pO2 75.2 L ABG HCO3 ABG Base Excess -3.4 L ABG Hemoglobin 7.4 L Oxyhemoglobin 94.5 L Sodium Potassium Chloride Carbon Dioxide 20 L BUN 99 H Creatinine 2.1 H Glucose 126 H POC Glucose 145 H Lactic Acid Calcium Phosphorus 4.80 H Magnesium Direct Bilirubin AST ALT Alkaline Phosphatase Lactate Dehydrogenase Troponin T C-Reactive Protein Total Protein Albumin Prealbumin Triglycerides Cholesterol LDL Cholesterol Direct HDL Cholesterol Urine pH Urine WBC (Auto) Urine Creatinine Urine Total Protein Fluid Total Protein Vancomycin Trough Rheumatoid Factor Complement C4 Miscellaneous Test Crossmatch 12/06/16 12/06/16 12/06/16 06:46 11:54 17:55 WBC RBC Hgb 8.3 L Hct 26.4 L MCV MCH MCHC RDW Plt Count Lymph % (Auto) [place] % (Auto) Lymph # [place] # Baso # Seg Neutrophils % Seg Neuts % (Manual) Lymphocytes % (Manual) Monocytes % (Manual) Eosinophils % (Manual) Basophils % (Manual) Nucleated RBC % Seg Neutrophils # Seg Neutrophils # Man Lymphocytes # (Manual) Monocytes # (Manual) Eosinophils # (Manual) Basophils # (Manual) PT INR Fibrinogen dRVVT Confirm Interp Factor V Activity POC ABG pH POC ABG pCO2 POC ABG pO2 ABG pO2 ABG HCO3 ABG Base Excess ABG Hemoglobin Oxyhemoglobin Sodium Potassium Chloride Carbon Dioxide BUN Creatinine Glucose POC Glucose 126 H 157 H Lactic Acid Calcium Phosphorus Magnesium Direct Bilirubin AST ALT Alkaline Phosphatase Lactate Dehydrogenase Troponin T C-Reactive Protein Total Protein Albumin Prealbumin Triglycerides Cholesterol LDL Cholesterol Direct HDL Cholesterol Urine pH Urine WBC (Auto) Urine Creatinine Urine Total Protein Fluid Total Protein Vancomycin Trough Rheumatoid Factor Complement C4 Miscellaneous Test Crossmatch 12/06/16 12/07/16 12/07/16 23:59 05:34 06:30 WBC RBC Hgb Hct MCV MCH MCHC RDW Plt Count Lymph % (Auto) [place] % (Auto) Lymph # [place] # Baso # Seg Neutrophils % Seg Neuts % (Manual) Lymphocytes % (Manual) Monocytes % (Manual) Eosinophils % (Manual) Basophils % (Manual) Nucleated RBC % Seg Neutrophils # Seg Neutrophils # Man Lymphocytes # (Manual) Monocytes # (Manual) Eosinophils # (Manual) Basophils # (Manual) PT INR Fibrinogen dRVVT Confirm Interp Factor V Activity POC ABG pH POC ABG pCO2 POC ABG pO2 ABG pO2 ABG HCO3 ABG Base Excess ABG Hemoglobin Oxyhemoglobin Sodium Potassium Chloride Carbon Dioxide BUN 67 H Creatinine 1.4 H Glucose 126 H POC Glucose 129 H 129 H Lactic Acid Calcium Phosphorus Magnesium Direct Bilirubin AST ALT Alkaline Phosphatase Lactate Dehydrogenase Troponin T C-Reactive Protein Total Protein Albumin Prealbumin Triglycerides Cholesterol LDL Cholesterol Direct HDL Cholesterol Urine pH Urine WBC (Auto) Urine Creatinine Urine Total Protein Fluid Total Protein Vancomycin Trough Rheumatoid Factor Complement C4 Miscellaneous Test Crossmatch 12/07/16 12/07/16 12/07/16 06:30 08:00 09:45 WBC 18.8 H RBC 2.52 L Hgb 6.9 L 6.8 L Hct 21.2 L 21.1 L MCV MCH 27 L MCHC RDW 18.0 H Plt Count Lymph % (Auto) [place] % (Auto) 9.9 H Lymph # [place] # 1.9 H Baso # Seg Neutrophils % 71.8 H Seg Neuts % (Manual) Lymphocytes % (Manual) Monocytes % (Manual) Eosinophils % (Manual) Basophils % (Manual) Nucleated RBC % Seg Neutrophils # 13.5 H Seg Neutrophils # Man Lymphocytes # (Manual) Monocytes # (Manual) Eosinophils # (Manual) Basophils # (Manual) PT INR Fibrinogen dRVVT Confirm Interp Factor V Activity POC ABG pH POC ABG pCO2 POC ABG pO2 ABG pO2 ABG HCO3 ABG Base Excess ABG Hemoglobin Oxyhemoglobin Sodium Potassium Chloride Carbon Dioxide BUN Creatinine Glucose POC Glucose Lactic Acid Calcium Phosphorus Magnesium Direct Bilirubin AST ALT Alkaline Phosphatase Lactate Dehydrogenase Troponin T C-Reactive Protein Total Protein Albumin Prealbumin Triglycerides Cholesterol LDL Cholesterol Direct HDL Cholesterol Urine pH Urine WBC (Auto) Urine Creatinine Urine Total Protein Fluid Total Protein Vancomycin Trough Rheumatoid Factor Complement C4 Miscellaneous Test Crossmatch See Detail 12/07/16 12/07/16 12/07/16 11:44 18:19 23:59 WBC RBC Hgb Hct MCV MCH MCHC RDW Plt Count Lymph % (Auto) [place] % (Auto) Lymph # [place] # Baso # Seg Neutrophils % Seg Neuts % (Manual) Lymphocytes % (Manual) Monocytes % (Manual) Eosinophils % (Manual) Basophils % (Manual) Nucleated RBC % Seg Neutrophils # Seg Neutrophils # Man Lymphocytes # (Manual) Monocytes # (Manual) Eosinophils # (Manual) Basophils # (Manual) PT INR Fibrinogen dRVVT Confirm Interp Factor V Activity POC ABG pH POC ABG pCO2 POC ABG pO2 ABG pO2 ABG HCO3 ABG Base Excess ABG Hemoglobin Oxyhemoglobin Sodium Potassium Chloride Carbon Dioxide BUN Creatinine Glucose POC Glucose 137 H 138 H 133 H Lactic Acid Calcium Phosphorus Magnesium Direct Bilirubin AST ALT Alkaline Phosphatase Lactate Dehydrogenase Troponin T C-Reactive Protein Total Protein Albumin Prealbumin Triglycerides Cholesterol LDL Cholesterol Direct HDL Cholesterol Urine pH Urine WBC (Auto) Urine Creatinine Urine Total Protein Fluid Total Protein Vancomycin Trough Rheumatoid Factor Complement C4 Miscellaneous Test Crossmatch 12/08/16 12/08/16 12/08/16 05:25 05:30 05:30 WBC 23.8 H RBC 2.88 L Hgb 8.1 L Hct 24.3 L MCV MCH MCHC RDW 16.7 H Plt Count Lymph % (Auto) [place] % (Auto) Lymph # [place] # Baso # Seg Neutrophils % Seg Neuts % (Manual) 76.0 H Lymphocytes % (Manual) 9.0 L Monocytes % (Manual) 9.0 H Eosinophils % (Manual) Basophils % (Manual) Nucleated RBC % Seg Neutrophils # Seg Neutrophils # Man 18.1 H Lymphocytes # (Manual) Monocytes # (Manual) 2.1 H Eosinophils # (Manual) Basophils # (Manual) PT INR Fibrinogen dRVVT Confirm Interp Factor V Activity POC ABG pH POC ABG pCO2 POC ABG pO2 ABG pO2 ABG HCO3 ABG Base Excess ABG Hemoglobin Oxyhemoglobin Sodium Potassium Chloride Carbon Dioxide 21 L BUN 76 H Creatinine 1.6 H Glucose 133 H POC Glucose 177 H Lactic Acid Calcium Phosphorus Magnesium Direct Bilirubin AST ALT Alkaline Phosphatase Lactate Dehydrogenase Troponin T C-Reactive Protein Total Protein Albumin Prealbumin Triglycerides Cholesterol LDL Cholesterol Direct HDL Cholesterol Urine pH Urine WBC (Auto) Urine Creatinine Urine Total Protein Fluid Total Protein Vancomycin Trough Rheumatoid Factor Complement C4 Miscellaneous Test Crossmatch 12/08/16 12/08/16 12/09/16 11:45 18:00 00:00 WBC RBC Hgb Hct MCV MCH MCHC RDW Plt Count Lymph % (Auto) [place] % (Auto) Lymph # [place] # Baso # Seg Neutrophils % Seg Neuts % (Manual) Lymphocytes % (Manual) Monocytes % (Manual) Eosinophils % (Manual) Basophils % (Manual) Nucleated RBC % Seg Neutrophils # Seg Neutrophils # Man Lymphocytes # (Manual) Monocytes # (Manual) Eosinophils # (Manual) Basophils # (Manual) PT INR Fibrinogen dRVVT Confirm Interp Factor V Activity POC ABG pH POC ABG pCO2 POC ABG pO2 ABG pO2 ABG HCO3 ABG Base Excess ABG Hemoglobin Oxyhemoglobin Sodium Potassium Chloride Carbon Dioxide BUN Creatinine Glucose POC Glucose 163 H 123 H 137 H Lactic Acid Calcium Phosphorus Magnesium Direct Bilirubin AST ALT Alkaline Phosphatase Lactate Dehydrogenase Troponin T C-Reactive Protein Total Protein Albumin Prealbumin Triglycerides Cholesterol LDL Cholesterol Direct HDL Cholesterol Urine pH Urine WBC (Auto) Urine Creatinine Urine Total Protein Fluid Total Protein Vancomycin Trough Rheumatoid Factor Complement C4 Miscellaneous Test Crossmatch 12/09/16 12/09/16 12/09/16 05:34 06:00 06:00 WBC 15.5 H RBC 2.87 L Hgb 8.0 L Hct 24.2 L MCV MCH MCHC RDW 17.2 H Plt Count Lymph % (Auto) [place] % (Auto) 11.6 H Lymph # [place] # 1.8 H Baso # Seg Neutrophils % 70.8 H Seg Neuts % (Manual) Lymphocytes % (Manual) Monocytes % (Manual) Eosinophils % (Manual) Basophils % (Manual) Nucleated RBC % Seg Neutrophils # 11.0 H Seg Neutrophils # Man Lymphocytes # (Manual) Monocytes # (Manual) Eosinophils # (Manual) Basophils # (Manual) PT INR Fibrinogen dRVVT Confirm Interp Factor V Activity POC ABG pH POC ABG pCO2 POC ABG pO2 ABG pO2 ABG HCO3 ABG Base Excess ABG Hemoglobin Oxyhemoglobin Sodium Potassium Chloride Carbon Dioxide BUN 51 H Creatinine Glucose 117 H POC Glucose 136 H Lactic Acid Calcium Phosphorus Magnesium Direct Bilirubin AST ALT Alkaline Phosphatase Lactate Dehydrogenase Troponin T C-Reactive Protein Total Protein Albumin Prealbumin Triglycerides Cholesterol LDL Cholesterol Direct HDL Cholesterol Urine pH Urine WBC (Auto) Urine Creatinine Urine Total Protein Fluid Total Protein Vancomycin Trough Rheumatoid Factor Complement C4 Miscellaneous Test Crossmatch 12/09/16 12/09/16 12/09/16 12:29 17:52 23:10 WBC RBC Hgb Hct MCV MCH MCHC RDW Plt Count Lymph % (Auto) [place] % (Auto) Lymph # [place] # Baso # Seg Neutrophils % Seg Neuts % (Manual) Lymphocytes % (Manual) Monocytes % (Manual) Eosinophils % (Manual) Basophils % (Manual) Nucleated RBC % Seg Neutrophils # Seg Neutrophils # Man Lymphocytes # (Manual) Monocytes # (Manual) Eosinophils # (Manual) Basophils # (Manual) PT INR Fibrinogen dRVVT Confirm Interp Factor V Activity POC ABG pH POC ABG pCO2 POC ABG pO2 ABG pO2 ABG HCO3 ABG Base Excess ABG Hemoglobin Oxyhemoglobin Sodium Potassium Chloride Carbon Dioxide BUN Creatinine Glucose POC Glucose 139 H 140 H 129 H Lactic Acid Calcium Phosphorus Magnesium Direct Bilirubin AST ALT Alkaline Phosphatase Lactate Dehydrogenase Troponin T C-Reactive Protein Total Protein Albumin Prealbumin Triglycerides Cholesterol LDL Cholesterol Direct HDL Cholesterol Urine pH Urine WBC (Auto) Urine Creatinine Urine Total Protein Fluid Total Protein Vancomycin Trough Rheumatoid Factor Complement C4 Miscellaneous Test Crossmatch 12/10/16 12/10/16 12/10/16 05:00 05:00 06:54 WBC 15.7 H RBC 2.87 L Hgb 8.2 L Hct 24.4 L MCV MCH MCHC RDW 17.2 H Plt Count Lymph % (Auto) [place] % (Auto) 8.3 H Lymph # [place] # 1.3 H Baso # Seg Neutrophils % 72.8 H Seg Neuts % (Manual) Lymphocytes % (Manual) Monocytes % (Manual) Eosinophils % (Manual) Basophils % (Manual) Nucleated RBC % Seg Neutrophils # 11.4 H Seg Neutrophils # Man Lymphocytes # (Manual) Monocytes # (Manual) Eosinophils # (Manual) Basophils # (Manual) PT INR Fibrinogen dRVVT Confirm Interp Factor V Activity POC ABG pH POC ABG pCO2 POC ABG pO2 ABG pO2 ABG HCO3 ABG Base Excess ABG Hemoglobin Oxyhemoglobin Sodium Potassium Chloride Carbon Dioxide BUN 64 H Creatinine 1.4 H Glucose 134 H POC Glucose 154 H Lactic Acid Calcium Phosphorus Magnesium Direct Bilirubin AST ALT Alkaline Phosphatase Lactate Dehydrogenase Troponin T C-Reactive Protein Total Protein Albumin Prealbumin Triglycerides Cholesterol LDL Cholesterol Direct HDL Cholesterol Urine pH Urine WBC (Auto) Urine Creatinine Urine Total Protein Fluid Total Protein Vancomycin Trough Rheumatoid Factor Complement C4 Miscellaneous Test Crossmatch 12/10/16 12/10/16 12/10/16 11:58 17:29 23:52 WBC RBC Hgb Hct MCV MCH MCHC RDW Plt Count Lymph % (Auto) [place] % (Auto) Lymph # [place] # Baso # Seg Neutrophils % Seg Neuts % (Manual) Lymphocytes % (Manual) Monocytes % (Manual) Eosinophils % (Manual) Basophils % (Manual) Nucleated RBC % Seg Neutrophils # Seg Neutrophils # Man Lymphocytes # (Manual) Monocytes # (Manual) Eosinophils # (Manual) Basophils # (Manual) PT INR Fibrinogen dRVVT Confirm Interp Factor V Activity POC ABG pH POC ABG pCO2 POC ABG pO2 ABG pO2 ABG HCO3 ABG Base Excess ABG Hemoglobin Oxyhemoglobin Sodium Potassium Chloride Carbon Dioxide BUN Creatinine Glucose POC Glucose 144 H 163 H 125 H Lactic Acid Calcium Phosphorus Magnesium Direct Bilirubin AST ALT Alkaline Phosphatase Lactate Dehydrogenase Troponin T C-Reactive Protein Total Protein Albumin Prealbumin Triglycerides Cholesterol LDL Cholesterol Direct HDL Cholesterol Urine pH Urine WBC (Auto) Urine Creatinine Urine Total Protein Fluid Total Protein Vancomycin Trough Rheumatoid Factor Complement C4 Miscellaneous Test Crossmatch 12/11/16 12/11/16 12/11/16 05:38 06:30 06:30 WBC 14.4 H RBC 2.76 L Hgb 7.7 L Hct 23.4 L MCV MCH MCHC RDW 17.2 H Plt Count Lymph % (Auto) [place] % (Auto) 8.8 H Lymph # [place] # 1.3 H Baso # Seg Neutrophils % 72.5 H Seg Neuts % (Manual) Lymphocytes % (Manual) Monocytes % (Manual) Eosinophils % (Manual) Basophils % (Manual) Nucleated RBC % Seg Neutrophils # 10.5 H Seg Neutrophils # Man Lymphocytes # (Manual) Monocytes # (Manual) Eosinophils # (Manual) Basophils # (Manual) PT INR Fibrinogen dRVVT Confirm Interp Factor V Activity POC ABG pH POC ABG pCO2 POC ABG pO2 ABG pO2 ABG HCO3 ABG Base Excess ABG Hemoglobin Oxyhemoglobin Sodium Potassium Chloride Carbon Dioxide BUN 43 H Creatinine Glucose 124 H POC Glucose 141 H Lactic Acid Calcium 8.3 L Phosphorus Magnesium 1.60 L Direct Bilirubin AST ALT Alkaline Phosphatase Lactate Dehydrogenase Troponin T C-Reactive Protein Total Protein Albumin Prealbumin Triglycerides Cholesterol LDL Cholesterol Direct HDL Cholesterol Urine pH Urine WBC (Auto) Urine Creatinine Urine Total Protein Fluid Total Protein Vancomycin Trough Rheumatoid Factor Complement C4 Miscellaneous Test Crossmatch 12/11/16 12/11/16 12/11/16 11:15 17:59 23:48 WBC RBC Hgb Hct MCV MCH MCHC RDW Plt Count Lymph % (Auto) [place] % (Auto) Lymph # [place] # Baso # Seg Neutrophils % Seg Neuts % (Manual) Lymphocytes % (Manual) Monocytes % (Manual) Eosinophils % (Manual) Basophils % (Manual) Nucleated RBC % Seg Neutrophils # Seg Neutrophils # Man Lymphocytes # (Manual) Monocytes # (Manual) Eosinophils # (Manual) Basophils # (Manual) PT INR Fibrinogen dRVVT Confirm Interp Factor V Activity POC ABG pH POC ABG pCO2 POC ABG pO2 ABG pO2 ABG HCO3 ABG Base Excess ABG Hemoglobin Oxyhemoglobin Sodium Potassium Chloride Carbon Dioxide BUN Creatinine Glucose POC Glucose 188 H 106 H 119 H Lactic Acid Calcium Phosphorus Magnesium Direct Bilirubin AST ALT Alkaline Phosphatase Lactate Dehydrogenase Troponin T C-Reactive Protein Total Protein Albumin Prealbumin Triglycerides Cholesterol LDL Cholesterol Direct HDL Cholesterol Urine pH Urine WBC (Auto) Urine Creatinine Urine Total Protein Fluid Total Protein Vancomycin Trough Rheumatoid Factor Complement C4 Miscellaneous Test Crossmatch 12/12/16 12/12/16 12/12/16 05:00 06:01 12:20 WBC 16.7 H RBC 2.87 L Hgb 8.0 L Hct 24.2 L MCV MCH MCHC RDW 17.6 H Plt Count Lymph % (Auto) [place] % (Auto) Lymph # [place] # 1.2 H Baso # Seg Neutrophils % 75.3 H Seg Neuts % (Manual) Lymphocytes % (Manual) Monocytes % (Manual) Eosinophils % (Manual) Basophils % (Manual) Nucleated RBC % Seg Neutrophils # 12.6 H Seg Neutrophils # Man Lymphocytes # (Manual) Monocytes # (Manual) Eosinophils # (Manual) Basophils # (Manual) PT INR Fibrinogen dRVVT Confirm Interp Factor V Activity POC ABG pH POC ABG pCO2 POC ABG pO2 ABG pO2 ABG HCO3 ABG Base Excess ABG Hemoglobin Oxyhemoglobin Sodium Potassium Chloride Carbon Dioxide BUN Creatinine Glucose POC Glucose 134 H 149 H Lactic Acid Calcium Phosphorus Magnesium Direct Bilirubin AST ALT Alkaline Phosphatase Lactate Dehydrogenase Troponin T C-Reactive Protein Total Protein Albumin Prealbumin Triglycerides Cholesterol LDL Cholesterol Direct HDL Cholesterol Urine pH Urine WBC (Auto) Urine Creatinine Urine Total Protein Fluid Total Protein Vancomycin Trough Rheumatoid Factor Complement C4 Miscellaneous Test Crossmatch 12/12/16 12/12/16 12/12/16 17:38 23:01 Unknown WBC RBC Hgb Hct MCV MCH MCHC RDW Plt Count Lymph % (Auto) [place] % (Auto) Lymph # [place] # Baso # Seg Neutrophils % Seg Neuts % (Manual) Lymphocytes % (Manual) Monocytes % (Manual) Eosinophils % (Manual) Basophils % (Manual) Nucleated RBC % Seg Neutrophils # Seg Neutrophils # Man Lymphocytes # (Manual) Monocytes # (Manual) Eosinophils # (Manual) Basophils # (Manual) PT INR Fibrinogen dRVVT Confirm Interp Factor V Activity POC ABG pH POC ABG pCO2 POC ABG pO2 ABG pO2 ABG HCO3 ABG Base Excess ABG Hemoglobin Oxyhemoglobin Sodium Potassium Chloride Carbon Dioxide BUN 60 H Creatinine 1.3 H Glucose 126 H POC Glucose 127 H 144 H Lactic Acid Calcium Phosphorus Magnesium Direct Bilirubin AST ALT Alkaline Phosphatase Lactate Dehydrogenase Troponin T C-Reactive Protein Total Protein Albumin Prealbumin Triglycerides Cholesterol LDL Cholesterol Direct HDL Cholesterol Urine pH Urine WBC (Auto) Urine Creatinine Urine Total Protein Fluid Total Protein Vancomycin Trough Rheumatoid Factor Complement C4 Miscellaneous Test Crossmatch 12/13/16 12/13/16 12/13/16 04:00 04:00 05:19 WBC 18.7 H RBC 2.89 L Hgb 8.3 L Hct 24.6 L MCV MCH MCHC RDW 17.5 H Plt Count Lymph % (Auto) [place] % (Auto) Lymph # [place] # 1.3 H Baso # Seg Neutrophils % 71.5 H Seg Neuts % (Manual) Lymphocytes % (Manual) Monocytes % (Manual) Eosinophils % (Manual) Basophils % (Manual) Nucleated RBC % Seg Neutrophils # 13.4 H Seg Neutrophils # Man Lymphocytes # (Manual) Monocytes # (Manual) Eosinophils # (Manual) Basophils # (Manual) PT INR Fibrinogen dRVVT Confirm Interp Factor V Activity POC ABG pH POC ABG pCO2 POC ABG pO2 ABG pO2 ABG HCO3 ABG Base Excess ABG Hemoglobin Oxyhemoglobin Sodium Potassium Chloride Carbon Dioxide BUN 73 H Creatinine 1.5 H Glucose 141 H POC Glucose 171 H Lactic Acid Calcium Phosphorus Magnesium Direct Bilirubin AST ALT Alkaline Phosphatase Lactate Dehydrogenase Troponin T C-Reactive Protein Total Protein Albumin Prealbumin Triglycerides Cholesterol LDL Cholesterol Direct HDL Cholesterol Urine pH Urine WBC (Auto) Urine Creatinine Urine Total Protein Fluid Total Protein Vancomycin Trough Rheumatoid Factor Complement C4 Miscellaneous Test Crossmatch 12/13/16 12/13/16 12/14/16 12:28 16:48 00:01 WBC RBC Hgb Hct MCV MCH MCHC RDW Plt Count Lymph % (Auto) [place] % (Auto) Lymph # [place] # Baso # Seg Neutrophils % Seg Neuts % (Manual) Lymphocytes % (Manual) Monocytes % (Manual) Eosinophils % (Manual) Basophils % (Manual) Nucleated RBC % Seg Neutrophils # Seg Neutrophils # Man Lymphocytes # (Manual) Monocytes # (Manual) Eosinophils # (Manual) Basophils # (Manual) PT INR Fibrinogen dRVVT Confirm Interp Factor V Activity POC ABG pH POC ABG pCO2 POC ABG pO2 ABG pO2 ABG HCO3 ABG Base Excess ABG Hemoglobin Oxyhemoglobin Sodium Potassium Chloride Carbon Dioxide BUN Creatinine Glucose POC Glucose 206 H 173 H 139 H Lactic Acid Calcium Phosphorus Magnesium Direct Bilirubin AST ALT Alkaline Phosphatase Lactate Dehydrogenase Troponin T C-Reactive Protein Total Protein Albumin Prealbumin Triglycerides Cholesterol LDL Cholesterol Direct HDL Cholesterol Urine pH Urine WBC (Auto) Urine Creatinine Urine Total Protein Fluid Total Protein Vancomycin Trough Rheumatoid Factor Complement C4 Miscellaneous Test Crossmatch 12/14/16 12/14/16 12/14/16 05:16 06:10 11:17 WBC RBC Hgb Hct MCV MCH MCHC RDW Plt Count Lymph % (Auto) [place] % (Auto) Lymph # [place] # Baso # Seg Neutrophils % Seg Neuts % (Manual) Lymphocytes % (Manual) Monocytes % (Manual) Eosinophils % (Manual) Basophils % (Manual) Nucleated RBC % Seg Neutrophils # Seg Neutrophils # Man Lymphocytes # (Manual) Monocytes # (Manual) Eosinophils # (Manual) Basophils # (Manual) PT INR Fibrinogen dRVVT Confirm Interp Factor V Activity POC ABG pH POC ABG pCO2 POC ABG pO2 ABG pO2 ABG HCO3 ABG Base Excess ABG Hemoglobin Oxyhemoglobin Sodium Potassium Chloride Carbon Dioxide BUN 57 H Creatinine 1.4 H Glucose 135 H POC Glucose 158 H 137 H Lactic Acid Calcium Phosphorus Magnesium Direct Bilirubin AST ALT Alkaline Phosphatase Lactate Dehydrogenase Troponin T C-Reactive Protein Total Protein Albumin Prealbumin Triglycerides Cholesterol LDL Cholesterol Direct HDL Cholesterol Urine pH Urine WBC (Auto) Urine Creatinine Urine Total Protein Fluid Total Protein Vancomycin Trough Rheumatoid Factor Complement C4 Miscellaneous Test Crossmatch 12/14/16 12/14/16 12/15/16 17:52 23:27 04:00 WBC RBC Hgb Hct MCV MCH MCHC RDW Plt Count Lymph % (Auto) [place] % (Auto) Lymph # [place] # Baso # Seg Neutrophils % Seg Neuts % (Manual) Lymphocytes % (Manual) Monocytes % (Manual) Eosinophils % (Manual) Basophils % (Manual) Nucleated RBC % Seg Neutrophils # Seg Neutrophils # Man Lymphocytes # (Manual) Monocytes # (Manual) Eosinophils # (Manual) Basophils # (Manual) PT INR Fibrinogen dRVVT Confirm Interp Factor V Activity POC ABG pH POC ABG pCO2 POC ABG pO2 ABG pO2 ABG HCO3 ABG Base Excess ABG Hemoglobin Oxyhemoglobin Sodium Potassium Chloride 97.9 L Carbon Dioxide BUN 75 H Creatinine 1.6 H Glucose 122 H POC Glucose 149 H 163 H Lactic Acid Calcium Phosphorus 5.20 H Magnesium Direct Bilirubin AST ALT Alkaline Phosphatase Lactate Dehydrogenase Troponin T C-Reactive Protein Total Protein Albumin Prealbumin Triglycerides Cholesterol LDL Cholesterol Direct HDL Cholesterol Urine pH Urine WBC (Auto) Urine Creatinine Urine Total Protein Fluid Total Protein Vancomycin Trough Rheumatoid Factor Complement C4 Miscellaneous Test Crossmatch 12/15/16 12/15/16 12/15/16 05:50 11:24 17:01 WBC RBC Hgb Hct MCV MCH MCHC RDW Plt Count Lymph % (Auto) [place] % (Auto) Lymph # [place] # Baso # Seg Neutrophils % Seg Neuts % (Manual) Lymphocytes % (Manual) Monocytes % (Manual) Eosinophils % (Manual) Basophils % (Manual) Nucleated RBC % Seg Neutrophils # Seg Neutrophils # Man Lymphocytes # (Manual) Monocytes # (Manual) Eosinophils # (Manual) Basophils # (Manual) PT INR Fibrinogen dRVVT Confirm Interp Factor V Activity POC ABG pH POC ABG pCO2 POC ABG pO2 ABG pO2 ABG HCO3 ABG Base Excess ABG Hemoglobin Oxyhemoglobin Sodium Potassium Chloride Carbon Dioxide BUN Creatinine Glucose POC Glucose 150 H 146 H 167 H Lactic Acid Calcium Phosphorus Magnesium Direct Bilirubin AST ALT Alkaline Phosphatase Lactate Dehydrogenase Troponin T C-Reactive Protein Total Protein Albumin Prealbumin Triglycerides Cholesterol LDL Cholesterol Direct HDL Cholesterol Urine pH Urine WBC (Auto) Urine Creatinine Urine Total Protein Fluid Total Protein Vancomycin Trough Rheumatoid Factor Complement C4 Miscellaneous Test Crossmatch 12/15/16 12/16/16 12/16/16 23:34 05:25 11:24 WBC RBC Hgb Hct MCV MCH MCHC RDW Plt Count Lymph % (Auto) [place] % (Auto) Lymph # [place] # Baso # Seg Neutrophils % Seg Neuts % (Manual) Lymphocytes % (Manual) Monocytes % (Manual) Eosinophils % (Manual) Basophils % (Manual) Nucleated RBC % Seg Neutrophils # Seg Neutrophils # Man Lymphocytes # (Manual) Monocytes # (Manual) Eosinophils # (Manual) Basophils # (Manual) PT INR Fibrinogen dRVVT Confirm Interp Factor V Activity POC ABG pH POC ABG pCO2 POC ABG pO2 ABG pO2 ABG HCO3 ABG Base Excess ABG Hemoglobin Oxyhemoglobin Sodium Potassium Chloride Carbon Dioxide BUN Creatinine Glucose POC Glucose 127 H 139 H 165 H Lactic Acid Calcium Phosphorus Magnesium Direct Bilirubin AST ALT Alkaline Phosphatase Lactate Dehydrogenase Troponin T C-Reactive Protein Total Protein Albumin Prealbumin Triglycerides Cholesterol LDL Cholesterol Direct HDL Cholesterol Urine pH Urine WBC (Auto) Urine Creatinine Urine Total Protein Fluid Total Protein Vancomycin Trough Rheumatoid Factor Complement C4 Miscellaneous Test Crossmatch 12/16/16 12/16/16 12/16/16 15:30 16:25 17:31 WBC 17.8 H RBC 2.38 L Hgb 6.4 L Hct 20.3 L MCV MCH 27 L MCHC RDW 17.4 H Plt Count Lymph % (Auto) [place] % (Auto) Lymph # [place] # Baso # Seg Neutrophils % Seg Neuts % (Manual) Lymphocytes % (Manual) Monocytes % (Manual) 10.0 H Eosinophils % (Manual) Basophils % (Manual) Nucleated RBC % Seg Neutrophils # Seg Neutrophils # Man 8.5 H Lymphocytes # (Manual) Monocytes # (Manual) 1.8 H Eosinophils # (Manual) Basophils # (Manual) PT INR Fibrinogen dRVVT Confirm Interp Factor V Activity POC ABG pH POC ABG pCO2 POC ABG pO2 ABG pO2 ABG HCO3 ABG Base Excess ABG Hemoglobin Oxyhemoglobin Sodium Potassium Chloride Carbon Dioxide BUN Creatinine Glucose POC Glucose 176 H Lactic Acid Calcium Phosphorus Magnesium Direct Bilirubin AST ALT Alkaline Phosphatase Lactate Dehydrogenase Troponin T C-Reactive Protein Total Protein Albumin Prealbumin Triglycerides Cholesterol LDL Cholesterol Direct HDL Cholesterol Urine pH Urine WBC (Auto) Urine Creatinine Urine Total Protein Fluid Total Protein Vancomycin Trough Rheumatoid Factor Complement C4 Miscellaneous Test Crossmatch See Detail 12/17/16 12/17/16 12/17/16 00:14 04:00 05:00 WBC 20.0 H RBC 2.99 L Hgb 8.5 L Hct 25.7 L MCV MCH MCHC RDW 17.2 H Plt Count Lymph % (Auto) [place] % (Auto) Lymph # [place] # Baso # Seg Neutrophils % Seg Neuts % (Manual) Lymphocytes % (Manual) Monocytes % (Manual) Eosinophils % (Manual) Basophils % (Manual) Nucleated RBC % Seg Neutrophils # Seg Neutrophils # Man Lymphocytes # (Manual) Monocytes # (Manual) Eosinophils # (Manual) Basophils # (Manual) PT INR Fibrinogen dRVVT Confirm Interp Factor V Activity POC ABG pH POC ABG pCO2 POC ABG pO2 ABG pO2 ABG HCO3 ABG Base Excess ABG Hemoglobin Oxyhemoglobin Sodium Potassium Chloride 97.7 L Carbon Dioxide BUN 73 H Creatinine 1.7 H Glucose 136 H POC Glucose 148 H Lactic Acid Calcium Phosphorus 2.20 L Magnesium 2.70 H Direct Bilirubin AST ALT Alkaline Phosphatase Lactate Dehydrogenase Troponin T C-Reactive Protein Total Protein Albumin Prealbumin Triglycerides Cholesterol LDL Cholesterol Direct HDL Cholesterol Urine pH Urine WBC (Auto) Urine Creatinine Urine Total Protein Fluid Total Protein Vancomycin Trough Rheumatoid Factor Complement C4 Miscellaneous Test Crossmatch 12/17/16 12/17/16 12/17/16 05:39 12:50 16:32 WBC RBC Hgb Hct MCV MCH MCHC RDW Plt Count Lymph % (Auto) [place] % (Auto) Lymph # [place] # Baso # Seg Neutrophils % Seg Neuts % (Manual) Lymphocytes % (Manual) Monocytes % (Manual) Eosinophils % (Manual) Basophils % (Manual) Nucleated RBC % Seg Neutrophils # Seg Neutrophils # Man Lymphocytes # (Manual) Monocytes # (Manual) Eosinophils # (Manual) Basophils # (Manual) PT INR Fibrinogen dRVVT Confirm Interp Factor V Activity POC ABG pH POC ABG pCO2 POC ABG pO2 ABG pO2 ABG HCO3 ABG Base Excess ABG Hemoglobin Oxyhemoglobin Sodium Potassium Chloride Carbon Dioxide BUN Creatinine Glucose POC Glucose 162 H 146 H 169 H Lactic Acid Calcium Phosphorus Magnesium Direct Bilirubin AST ALT Alkaline Phosphatase Lactate Dehydrogenase Troponin T C-Reactive Protein Total Protein Albumin Prealbumin Triglycerides Cholesterol LDL Cholesterol Direct HDL Cholesterol Urine pH Urine WBC (Auto) Urine Creatinine Urine Total Protein Fluid Total Protein Vancomycin Trough Rheumatoid Factor Complement C4 Miscellaneous Test Crossmatch 12/17/16 12/18/16 12/18/16 23:57 05:00 05:32 WBC RBC Hgb Hct MCV MCH MCHC RDW Plt Count Lymph % (Auto) [place] % (Auto) Lymph # [place] # Baso # Seg Neutrophils % Seg Neuts % (Manual) Lymphocytes % (Manual) Monocytes % (Manual) Eosinophils % (Manual) Basophils % (Manual) Nucleated RBC % Seg Neutrophils # Seg Neutrophils # Man Lymphocytes # (Manual) Monocytes # (Manual) Eosinophils # (Manual) Basophils # (Manual) PT INR Fibrinogen dRVVT Confirm Interp Factor V Activity POC ABG pH POC ABG pCO2 POC ABG pO2 ABG pO2 ABG HCO3 ABG Base Excess ABG Hemoglobin Oxyhemoglobin Sodium Potassium Chloride 97.0 L Carbon Dioxide BUN 63 H Creatinine 1.4 H Glucose 174 H POC Glucose 145 H 201 H Lactic Acid Calcium Phosphorus 1.70 L D Magnesium Direct Bilirubin AST ALT Alkaline Phosphatase 257 H Lactate Dehydrogenase Troponin T C-Reactive Protein Total Protein 5.9 L Albumin 1.8 L Prealbumin Triglycerides Cholesterol LDL Cholesterol Direct HDL Cholesterol Urine pH Urine WBC (Auto) Urine Creatinine Urine Total Protein Fluid Total Protein Vancomycin Trough Rheumatoid Factor Complement C4 Miscellaneous Test Crossmatch 12/18/16 12/18/16 12/18/16 11:43 16:52 23:52 WBC RBC Hgb Hct MCV MCH MCHC RDW Plt Count Lymph % (Auto) [place] % (Auto) Lymph # [place] # Baso # Seg Neutrophils % Seg Neuts % (Manual) Lymphocytes % (Manual) Monocytes % (Manual) Eosinophils % (Manual) Basophils % (Manual) Nucleated RBC % Seg Neutrophils # Seg Neutrophils # Man Lymphocytes # (Manual) Monocytes # (Manual) Eosinophils # (Manual) Basophils # (Manual) PT INR Fibrinogen dRVVT Confirm Interp Factor V Activity POC ABG pH POC ABG pCO2 POC ABG pO2 ABG pO2 ABG HCO3 ABG Base Excess ABG Hemoglobin Oxyhemoglobin Sodium Potassium Chloride Carbon Dioxide BUN Creatinine Glucose POC Glucose 177 H 110 H 162 H Lactic Acid Calcium Phosphorus Magnesium Direct Bilirubin AST ALT Alkaline Phosphatase Lactate Dehydrogenase Troponin T C-Reactive Protein Total Protein Albumin Prealbumin Triglycerides Cholesterol LDL Cholesterol Direct HDL Cholesterol Urine pH Urine WBC (Auto) Urine Creatinine Urine Total Protein Fluid Total Protein Vancomycin Trough Rheumatoid Factor Complement C4 Miscellaneous Test Crossmatch 12/19/16 12/19/16 12/19/16 05:02 05:24 09:30 WBC 20.1 H RBC 2.73 L Hgb 7.6 L Hct 23.6 L MCV MCH MCHC RDW 17.6 H Plt Count Lymph % (Auto) [place] % (Auto) Lymph # [place] # Baso # Seg Neutrophils % Seg Neuts % (Manual) Lymphocytes % (Manual) 13.0 L Monocytes % (Manual) Eosinophils % (Manual) Basophils % (Manual) Nucleated RBC % 1.0 H Seg Neutrophils # Seg Neutrophils # Man 12.9 H Lymphocytes # (Manual) Monocytes # (Manual) 1.4 H Eosinophils # (Manual) Basophils # (Manual) 0.2 H PT INR Fibrinogen dRVVT Confirm Interp Factor V Activity POC ABG pH POC ABG pCO2 POC ABG pO2 ABG pO2 ABG HCO3 ABG Base Excess ABG Hemoglobin Oxyhemoglobin Sodium Potassium Chloride 97.8 L Carbon Dioxide BUN 84 H Creatinine 1.6 H Glucose 133 H POC Glucose 134 H Lactic Acid Calcium Phosphorus Magnesium Direct Bilirubin AST ALT Alkaline Phosphatase Lactate Dehydrogenase Troponin T C-Reactive Protein Total Protein Albumin Prealbumin Triglycerides Cholesterol LDL Cholesterol Direct HDL Cholesterol Urine pH Urine WBC (Auto) Urine Creatinine Urine Total Protein Fluid Total Protein Vancomycin Trough Rheumatoid Factor Complement C4 Miscellaneous Test Crossmatch 12/19/16 09:36 WBC RBC Hgb Hct MCV MCH MCHC RDW Plt Count Lymph % (Auto) [place] % (Auto) Lymph # [place] # Baso # Seg Neutrophils % Seg Neuts % (Manual) Lymphocytes % (Manual) Monocytes % (Manual) Eosinophils % (Manual) Basophils % (Manual) Nucleated RBC % Seg Neutrophils # Seg Neutrophils # Man Lymphocytes # (Manual) Monocytes # (Manual) Eosinophils # (Manual) Basophils # (Manual) PT INR Fibrinogen dRVVT Confirm Interp Factor V Activity POC ABG pH 7.503 H POC ABG pCO2 30.1 L POC ABG pO2 ABG pO2 ABG HCO3 ABG Base Excess ABG Hemoglobin Oxyhemoglobin Sodium Potassium Chloride Carbon Dioxide BUN Creatinine Glucose POC Glucose Lactic Acid Calcium Phosphorus Magnesium Direct Bilirubin AST ALT Alkaline Phosphatase Lactate Dehydrogenase Troponin T C-Reactive Protein Total Protein Albumin Prealbumin Triglycerides Cholesterol LDL Cholesterol Direct HDL Cholesterol Urine pH Urine WBC (Auto) Urine Creatinine Urine Total Protein Fluid Total Protein Vancomycin Trough Rheumatoid Factor Complement C4 Miscellaneous Test Crossmatch Allied health notes reviewed: RT
[2016-12-19] MEDS: HEPARIN SUB-Q SCH ×3 (14:23→22:03)
[2016-12-19] MEDS: ROBINUL PO SCH ×2 (14:23→22:04)
[2016-12-19] MEDS: PROTONIX FEEDTUBE SCH (14:24)
[2016-12-19] MEDS: NORVASC PO SCH (14:27)
[2016-12-19] MEDS: MORPHINE IV PRN (18:11)
[2016-12-19] MEDS: ZOFRAN IV PRN (18:12)
[2016-12-19] MEDS ORDERED: INTRALIPID 20% 250 ML IV SCH (20:00)
[2016-12-19] MEDS ORDERED: TPN ADULT IV SCH (20:00)
[2016-12-19] MEDS ORDERED: NACL 0.9% 250ML 250 ML IV ONE (20:50)
[2016-12-19] MEDS: Vasostrict 20 UNIT in NACL 0.9% 100 ML IV SCH (21:00)
[2016-12-20] MEDS: APRESOLINE PO SCH ×3 (00:57→22:14)
[2016-12-20] MEDS: LOPRESSOR PO SCH ×4 (00:58→18:28)
[2016-12-20] MEDS: REGLAN IV SCH ×4 (01:10→18:38)
[2016-12-20] MEDS: HumuLIN R SUB-Q SCH ×4 (01:10→18:37)
[2016-12-20] MEDS: Vasostrict 20 UNIT in NACL 0.9% 100 ML IV SCH (01:22)
[2016-12-20] MEDS: DUONEB *Not for PRN Use IH SCH ×4 (01:44→19:27)
[2016-12-20 07:07] LABS: Blood Urea Nitrogen TNR mg/dL (7-17)
[2016-12-20 07:09] LABS: BUN/Creatinine Ratio TNR
[2016-12-20 07:10] LABS: Calcium TNR mg/dL (8.4-10.2); Hemolysis Index TNR
--- NOTE | 2016-12-20 09:39 | Progress Note ---
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 * Her tachycardia seems to have improved. * Tolerating TPN well at this time. Shall monitor her electrolytes * monitor for renal recovery * Rate control per cardiology * Dose medications for renal function * Avoid potential nephrotoxins Subjective Date of service: 12/20/16 Principal diagnosis: Acute resp failure on MVS; S/P Acute CVA; Acute Encephalopathy; JUANITA Interval history: Mrs. العراقي remains in the ICU. Currently on 28% FiO2. Unresponsive. She is currently on pressors Objective - Vital Signs Vital signs: Vital Signs - 12hr 12/19/16 12/19/16 12/19/16 21:41 21:45 22:00 Temperature Pulse Rate 104 H 104 H 104 H Pulse Rate [ Anterior Bilateral Throughout] Respiratory 27 H 28 H 28 H Rate Respiratory Rate [Anterior Bilateral Throughout] Blood Pressure 115/66 112/72 123/77 O2 Sat by Pulse 97 97 98 Oximetry 12/19/16 12/19/16 12/19/16 22:15 22:30 22:45 Temperature Pulse Rate 102 H 103 H 102 H Pulse Rate [ Anterior Bilateral Throughout] Respiratory 33 H 30 H 29 H Rate Respiratory Rate [Anterior Bilateral Throughout] Blood Pressure 117/75 121/78 117/78 O2 Sat by Pulse 97 98 98 Oximetry 12/19/16 12/19/16 12/19/16 23:00 23:15 23:30 Temperature Pulse Rate 102 H 102 H 100 H Pulse Rate [ Anterior Bilateral Throughout] Respiratory 29 H 34 H 32 H Rate Respiratory Rate [Anterior Bilateral Throughout] Blood Pressure 117/74 110/69 102/63 O2 Sat by Pulse 98 94 94 Oximetry 12/19/16 12/20/16 12/20/16 23:45 00:00 00:15 Temperature 97.0 F L Pulse Rate 99 H 102 H 100 H Pulse Rate [ Anterior Bilateral Throughout] Respiratory 27 H 28 H 27 H Rate Respiratory Rate [Anterior Bilateral Throughout] Blood Pressure 104/63 98/61 100/60 O2 Sat by Pulse 93 93 98 Oximetry 12/20/16 12/20/16 12/20/16 00:30 00:31 00:45 Temperature Pulse Rate 95 H 94 H 93 H Pulse Rate [ Anterior Bilateral Throughout] Respiratory 28 H 26 H Rate Respiratory Rate [Anterior Bilateral Throughout] Blood Pressure 94/60 94/60 104/65 O2 Sat by Pulse 98 98 99 Oximetry 12/20/16 12/20/16 12/20/16 00:57 00:58 01:00 Temperature Pulse Rate 94 H 93 H 93 H Pulse Rate [ Anterior Bilateral Throughout] Respiratory 27 H Rate Respiratory Rate [Anterior Bilateral Throughout] Blood Pressure 92/68 104/65 107/63 O2 Sat by Pulse 99 Oximetry 12/20/16 12/20/16 12/20/16 01:15 01:30 01:44 Temperature Pulse Rate 90 94 H Pulse Rate [ 67 Anterior Bilateral Throughout] Respiratory 23 30 H Rate Respiratory 21 Rate [Anterior Bilateral Throughout] Blood Pressure 100/59 110/68 O2 Sat by Pulse 99 99 Oximetry 12/20/16 12/20/16 12/20/16 01:45 01:55 02:00 Temperature Pulse Rate 97 H 104 H Pulse Rate [ 87 Anterior Bilateral Throughout] Respiratory 14 30 H Rate Respiratory 19 Rate [Anterior Bilateral Throughout] Blood Pressure 102/71 119/76 O2 Sat by Pulse 98 98 Oximetry 12/20/16 12/20/16 12/20/16 02:15 02:30 02:45 Temperature Pulse Rate 105 H 105 H 103 H Pulse Rate [ Anterior Bilateral Throughout] Respiratory 33 H 28 H 29 H Rate Respiratory Rate [Anterior Bilateral Throughout] Blood Pressure 123/66 114/68 110/68 O2 Sat by Pulse 96 96 96 Oximetry 12/20/16 12/20/16 12/20/16 03:00 03:15 03:30 Temperature Pulse Rate 101 H 99 H 100 H Pulse Rate [ Anterior Bilateral Throughout] Respiratory 36 H 34 H 30 H Rate Respiratory Rate [Anterior Bilateral Throughout] Blood Pressure 109/76 113/68 112/74 O2 Sat by Pulse 96 97 97 Oximetry 12/20/16 12/20/16 12/20/16 03:45 04:00 04:10 Temperature 97.0 F L Pulse Rate 97 H 92 H 94 H Pulse Rate [ Anterior Bilateral Throughout] Respiratory 13 14 Rate Respiratory Rate [Anterior Bilateral Throughout] Blood Pressure 108/68 98/51 98/51 O2 Sat by Pulse 97 97 98 Oximetry 12/20/16 12/20/16 12/20/16 04:15 04:30 04:45 Temperature Pulse Rate 92 H 97 H 97 H Pulse Rate [ Anterior Bilateral Throughout] Respiratory 29 H 28 H 24 Rate Respiratory Rate [Anterior Bilateral Throughout] Blood Pressure 100/61 117/76 125/80 O2 Sat by Pulse 98 100 99 Oximetry 12/20/16 12/20/16 12/20/16 05:00 05:15 05:31 Temperature Pulse Rate 97 H 102 H 112 H Pulse Rate [ Anterior Bilateral Throughout] Respiratory 26 H 25 H 29 H Rate Respiratory Rate [Anterior Bilateral Throughout] Blood Pressure 127/80 127/84 116/81 O2 Sat by Pulse 99 99 97 Oximetry 12/20/16 12/20/16 12/20/16 05:45 06:00 06:15 Temperature Pulse Rate 111 H 108 H Pulse Rate [ Anterior Bilateral Throughout] Respiratory 23 27 H Rate Respiratory Rate [Anterior Bilateral Throughout] Blood Pressure 118/75 124/101 119/68 O2 Sat by Pulse 98 97 95 Oximetry 12/20/16 12/20/16 12/20/16 06:18 06:19 06:30 Temperature Pulse Rate 106 H 105 H 103 H Pulse Rate [ Anterior Bilateral Throughout] Respiratory 27 H Rate Respiratory Rate [Anterior Bilateral Throughout] Blood Pressure 119/68 119/68 124/75 O2 Sat by Pulse 96 Oximetry 12/20/16 12/20/16 12/20/16 06:45 07:00 07:15 Temperature Pulse Rate 100 H 99 H 99 H Pulse Rate [ Anterior Bilateral Throughout] Respiratory 25 H 26 H 42 H Rate Respiratory Rate [Anterior Bilateral Throughout] Blood Pressure 123/79 115/73 98/38 O2 Sat by Pulse 96 97 97 Oximetry 12/20/16 12/20/16 12/20/16 07:30 07:45 07:56 Temperature Pulse Rate 102 H 99 H 98 H Pulse Rate [ Anterior Bilateral Throughout] Respiratory 27 H 23 Rate Respiratory Rate [Anterior Bilateral Throughout] Blood Pressure 107/56 117/64 110/74 O2 Sat by Pulse 97 97 Oximetry 12/20/16 12/20/16 12/20/16 08:00 08:15 08:30 Temperature 97.3 F L Pulse Rate 100 H 99 H 105 H Pulse Rate [ Anterior Bilateral Throughout] Respiratory 25 H 39 H 29 H Rate Respiratory Rate [Anterior Bilateral Throughout] Blood Pressure 110/74 128/80 111/66 O2 Sat by Pulse 98 98 98 Oximetry 12/20/16 12/20/16 08:45 09:00 Temperature Pulse Rate 103 H 104 H Pulse Rate [ Anterior Bilateral Throughout] Respiratory 31 H 30 H Rate Respiratory Rate [Anterior Bilateral Throughout] Blood Pressure 102/61 100/66 O2 Sat by Pulse 97 98 Oximetry - General Appearance General appearance: well-developed, well-nourished, appears stated age EENT: PERRL, mucous membranes moist Neck: no JVD, no thyromegaly, other (tracheostomy tube in place. Connected to the ventilator) Respiratory: Present: Ronchi (few scattered rhonchi) Cardiology: regular, normal heart rate Gastrointestinal: normoactive bowel sounds, other (collection bag noted over her old PEG tube site) Integumentary: other (1+ edema) - Lab 12/19/16 05:02 12/20/16 04:00 Most recent lab results ABG pH 7.450 pH Units (7.350-7.450) 12/05/16 Unknown ABG pCO2 29.6 mm Hg 12/05/16 Unknown ABG pO2 75.2 mm Hg (80.0-90.0) L 12/05/16 Unknown ABG HCO3 20.1 mmol/L (20.0-26.0) 12/05/16 Unknown ABG O2 Saturation 96.8 % (95.0-99.0) 12/05/16 Unknown Calcium TNR 12/20/16 04:00 Phosphorus TNR 12/20/16 04:00 Magnesium TNR 12/20/16 04:00 Urine Creatinine 19.7 mg/dL (0.1-20.0) 11/12/16 10:18 Urine Sodium 36 mEq/L 09/16/16 19:19 Urine Total Protein 16 mg/dL (5-11.8) H 09/16/16 19:19
[2016-12-20 09:51] LABS: Calcium 9.3 mg/dL (8.4-10.2)
[2016-12-20] MEDS: HEPARIN SUB-Q SCH ×2 (10:12→22:07)
[2016-12-20] MEDS: PROTONIX FEEDTUBE SCH (10:13)
[2016-12-20] MEDS: NORVASC PO SCH (10:13)
[2016-12-20] MEDS: ROBINUL PO SCH ×2 (10:15→22:07)
--- NOTE | 2016-12-20 10:52 | Progress Note ---
Assessment and Plan Acute hypoxic respiratory failure on mechanical ventilation s/p trach and PEG Acute left MCA CVA echocardiogram demonstrates at least moderate LVH but a normal LV systolic function, EF 50-55%. no thrombus visualized on transthoracic echocardiogram. Dislodged PEG tube s/p repair of gastric perforation with wedge gastrectomy Hypotensive requiring pressor support Acute on chronic renal failure requiring dialysis Fungemia Diabetes mellitus Anemia requiring transfusion of PRBCs Leukocytosis Paroxysmal Afib s/p failed cardioversion on 09/25 on lopressor for suppression considered not a candidate for anticoagulation due to severe anemia and thrombocytopenia. Conservative cardiac management. Subjective Date of service: 12/20/16 Principal diagnosis: Acute resp failure on MVS; S/P Acute CVA; Acute Encephalopathy; JUANITA Interval history: Remains unresponsive on the vent via trach. On pressor for support. Sinus rhythm on telemetry. Objective Vital Signs Temp Pulse Pulse Resp Resp BP Pulse Ox 12/20/16 10:13 105/65 12/20/16 09:00 104 H 30 H 100/66 98 12/20/16 08:45 103 H 31 H 102/61 97 12/20/16 08:30 105 H 29 H 111/66 98 12/20/16 08:15 99 H 39 H 128/80 98 12/20/16 08:00 97.3 F L 100 H 25 H 110/74 98 12/20/16 07:56 98 H 110/74 12/20/16 07:45 99 H 23 117/64 97 12/20/16 07:30 102 H 27 H 107/56 97 12/20/16 07:15 99 H 42 H 98/38 97 12/20/16 07:00 99 H 26 H 115/73 97 12/20/16 06:45 100 H 25 H 123/79 96 12/20/16 06:30 103 H 27 H 124/75 96 12/20/16 06:19 105 H 119/68 12/20/16 06:18 106 H 119/68 12/20/16 06:15 108 H 27 H 119/68 95 12/20/16 06:00 111 H 23 124/101 97 12/20/16 05:45 118/75 98 12/20/16 05:31 112 H 29 H 116/81 97 12/20/16 05:15 102 H 25 H 127/84 99 12/20/16 05:00 97 H 26 H 127/80 99 12/20/16 04:45 97 H 24 125/80 99 12/20/16 04:30 97 H 28 H 117/76 100 12/20/16 04:15 92 H 29 H 100/61 98 12/20/16 04:10 94 H 98/51 98 12/20/16 04:00 97.0 F L 92 H 14 98/51 97 12/20/16 03:45 97 H 13 108/68 97 12/20/16 03:30 100 H 30 H 112/74 97 12/20/16 03:15 99 H 34 H 113/68 97 12/20/16 03:00 101 H 36 H 109/76 96 12/20/16 02:45 103 H 29 H 110/68 96 12/20/16 02:30 105 H 28 H 114/68 96 12/20/16 02:15 105 H 33 H 123/66 96 12/20/16 02:00 104 H 30 H 119/76 98 12/20/16 01:55 87 19 12/20/16 01:45 97 H 14 102/71 98 12/20/16 01:44 67 21 12/20/16 01:30 94 H 30 H 110/68 99 12/20/16 01:15 90 23 100/59 99 12/20/16 01:00 93 H 27 H 107/63 99 12/20/16 00:58 93 H 104/65 12/20/16 00:57 94 H 92/68 12/20/16 00:45 93 H 26 H 104/65 99 12/20/16 00:31 94 H 94/60 98 12/20/16 00:30 95 H 28 H 94/60 98 12/20/16 00:15 100 H 27 H 100/60 98 12/20/16 00:00 97.0 F L 102 H 28 H 98/61 93 12/19/16 23:45 99 H 27 H 104/63 93 12/19/16 23:30 100 H 32 H 102/63 94 12/19/16 23:15 102 H 34 H 110/69 94 12/19/16 23:00 102 H 29 H 117/74 98 12/19/16 22:45 102 H 29 H 117/78 98 12/19/16 22:30 103 H 30 H 121/78 98 12/19/16 22:15 102 H 33 H 117/75 97 12/19/16 22:00 104 H 28 H 123/77 98 12/19/16 21:45 104 H 28 H 112/72 97 12/19/16 21:41 104 H 27 H 115/66 97 12/19/16 21:31 110 H 31 H 118/77 97 12/19/16 21:15 103 H 23 118/77 99 12/19/16 21:00 102 H 20 112/73 99 12/19/16 20:45 99 H 22 78/45 97 12/19/16 20:30 102 H 26 H 93/53 97 12/19/16 20:15 103 H 24 89/54 97 12/19/16 20:00 97.0 F L 104 H 23 94/49 97 12/19/16 19:45 105 H 16 86/53 97 12/19/16 19:30 103 H 17 92/52 97 12/19/16 19:18 97 H 25 H 12/19/16 19:15 101 H 34 H 112/68 100 12/19/16 19:08 97 H 97 H 25 H 90/46 94 12/19/16 19:00 97 H 25 H 90/46 94 12/19/16 18:45 98 H 26 H 99/57 94 12/19/16 18:30 97 H 24 90/52 94 12/19/16 18:15 99 H 23 94/50 93 12/19/16 18:00 100 H 28 H 87/49 92 12/19/16 17:45 98 H 25 H 104/60 99 12/19/16 17:30 97 H 28 H 98/49 97 12/19/16 17:15 98 H 29 H 89/50 95 12/19/16 17:04 96 H 89/47 98 12/19/16 17:00 97 H 25 H 89/47 92 12/19/16 16:45 97 H 24 93/51 98 12/19/16 16:30 98 H 30 H 95/47 95 12/19/16 16:15 100 H 29 H 98/50 95 12/19/16 16:00 97.5 F L 101 H 25 H 92/62 98 12/19/16 15:45 92 H 25 H 89/52 98 12/19/16 15:30 94 H 28 H 96/60 97 12/19/16 15:15 95 H 32 H 97/58 92 12/19/16 15:00 94 H 22 100/65 99 12/19/16 14:56 89 12 12/19/16 14:50 89 24 12/19/16 14:45 96 H 24 93/61 99 12/19/16 14:30 94 H 20 85/57 99 12/19/16 14:27 85 84/53 12/19/16 14:15 87 22 84/53 99 12/19/16 14:00 91 H 19 93/63 98 12/19/16 13:45 93 H 22 89/60 98 12/19/16 13:30 94 H 28 H 93/55 98 12/19/16 13:15 95 H 25 H 96/61 97 12/19/16 13:00 96 H 31 H 108/62 97 12/19/16 12:47 12/19/16 12:45 95 H 14 98/59 94 12/19/16 12:44 95 H 87/52 100 12/19/16 12:30 93 H 19 87/52 93 12/19/16 12:17 92 H 89/54 12/19/16 12:15 93 H 29 H 84/47 92 12/19/16 12:00 94 H 26 H 94/52 92 12/19/16 11:45 94 H 31 H 97/59 97 12/19/16 11:30 94 H 16 96/55 97 12/19/16 11:29 97.3 F L 12/19/16 11:15 93 H 28 H 102/64 97 12/19/16 11:00 92 H 28 H 96/61 97 Pulse Ox 12/20/16 10:13 12/20/16 09:00 12/20/16 08:45 12/20/16 08:30 12/20/16 08:15 12/20/16 08:00 12/20/16 07:56 12/20/16 07:45 12/20/16 07:30 12/20/16 07:15 12/20/16 07:00 12/20/16 06:45 12/20/16 06:30 12/20/16 06:19 12/20/16 06:18 12/20/16 06:15 12/20/16 06:00 12/20/16 05:45 12/20/16 05:31 12/20/16 05:15 12/20/16 05:00 12/20/16 04:45 12/20/16 04:30 12/20/16 04:15 12/20/16 04:10 12/20/16 04:00 12/20/16 03:45 12/20/16 03:30 12/20/16 03:15 12/20/16 03:00 12/20/16 02:45 12/20/16 02:30 12/20/16 02:15 12/20/16 02:00 12/20/16 01:55 12/20/16 01:45 12/20/16 01:44 12/20/16 01:30 12/20/16 01:15 12/20/16 01:00 12/20/16 00:58 12/20/16 00:57 12/20/16 00:45 12/20/16 00:31 12/20/16 00:30 12/20/16 00:15 12/20/16 00:00 12/19/16 23:45 12/19/16 23:30 12/19/16 23:15 12/19/16 23:00 12/19/16 22:45 12/19/16 22:30 12/19/16 22:15 12/19/16 22:00 12/19/16 21:45 12/19/16 21:41 12/19/16 21:31 12/19/16 21:15 12/19/16 21:00 12/19/16 20:45 12/19/16 20:30 12/19/16 20:15 12/19/16 20:00 12/19/16 19:45 12/19/16 19:30 12/19/16 19:18 12/19/16 19:15 12/19/16 19:08 94 12/19/16 19:00 12/19/16 18:45 12/19/16 18:30 12/19/16 18:15 12/19/16 18:00 12/19/16 17:45 12/19/16 17:30 12/19/16 17:15 12/19/16 17:04 12/19/16 17:00 12/19/16 16:45 12/19/16 16:30 12/19/16 16:15 12/19/16 16:00 12/19/16 15:45 12/19/16 15:30 12/19/16 15:15 12/19/16 15:00 12/19/16 14:56 12/19/16 14:50 12/19/16 14:45 12/19/16 14:30 12/19/16 14:27 12/19/16 14:15 12/19/16 14:00 12/19/16 13:45 12/19/16 13:30 12/19/16 13:15 12/19/16 13:00 12/19/16 12:47 100 12/19/16 12:45 12/19/16 12:44 12/19/16 12:30 12/19/16 12:17 12/19/16 12:15 12/19/16 12:00 12/19/16 11:45 12/19/16 11:30 12/19/16 11:29 12/19/16 11:15 12/19/16 11:00 - Physical Examination General: Other (ventilated via trach) Cardiac: Positive: Reg Rate and Rhythm - Labs and Meds Comprehensive Metabolic Panel 12/20/16 12/20/16 Range/Units 04:00 07:07 Sodium TNR 141 Potassium TNR 3.9 Chloride TNR 97.1 L Carbon Dioxide TNR 20 L BUN TNR 97 H Creatinine TNR 1.8 H Glucose TNR 153 H Calcium TNR 9.3 - Imaging and Cardiology EKG: image reviewed - Allied health notes Allied health notes reviewed: RT
[2016-12-20] MEDS ORDERED: NACL 0.9% 1000 ML 2,000 ML ONE (13:29)
[2016-12-20] MEDS: PROCRIT IV PRN (14:34)
--- NOTE | 2016-12-20 16:28 | Progress Note ---
Assessment and Plan Patient is 46-year-old woman with a history of hypertension, diabetes mellitus, asthma, hyperlipidemia, chronic kidney disease and anxiety, who was brought in by family because she couldn't get her words out, her face was also twisted, she was admitted for acute CVA and accelerated hypertension, she had a hx of poor adherence with her medications, and uncontrolled htn. Patient's SBP on admission was noted be greater than 260. TPA was started but this it was discontinued after 5 minutes because her blood pressure became uncontrolled. The TPA was not initiated again because the patient was outside the TPA window. Patient has had a prolonged hospital stay complicated with recurrent severe sepsis. Patient with most recent event also status post cardiac arrest on and received CPR. -Severe Sepsis with septic shock, recurrent. Patient with multiple episodes of sepsis. Initial episode due to presumed aspiration pneumonia and septic episode on 09/23 from candidemia then a third episode from peritonitis from gastric perforation from dislodged PEG +/-UTI. Patient was also noted to have had Candidemia with Blood cultures positive for Silvia albicans 09/23, 09/25 but negative on 09/30. Antibiotic discontinued on 12/05 per ID. patient is s/p R thoracentesis on 11/14, 240cc of serous fluid removed, cx of fluid was negative. Also, Stool negative for C. difficile --Acute hypoxic respiratory failure, status post tracheostomy Patient placed back on ventilation. Patient currently with CPAP mode. Patient failed T-piece trials. Tracheostomy tube leak. Pulmonary following -Surgical wound infection/gram-negative sepsis/candidemia/peritonitis/fungemia. Continue wound care to ostomy sites -Acute massive CVA with mass effect; continue antiplatelets and statins CT showed continued evolution of left MCA infarct with slight mass effect and edema, and there is no hemorrhage -PRINCE showed hyperdynamic ventricle with ef of 75%, neither clot nor septal defect seen -MRA Brain shows near complete occlusion of M2 and M3 of the left MCA carotid doppler negative -Echo shows preserved systolic function but does show some left ventricular diastolic dysfunction -continue asa and statin -Oliguric acute kidney injury. Etiology secondary to ATN on CKD. Baseline creatinine is approximately 1.7. -Dislodged PEG tube: Status post repair of gastric perforation which wedge gastrectomy -Paroxysmal atrial fibrillation with rapid ventricular rate, failed cardioversion Continue current medications, Not a candidate for anticoagulation secondary to anemia, thrombocytopenia and massive CVA -Anemia; probably secondary to GI bleeding Patient received multiple units of PRBC in the past, hemoglobin currently stable -Toxic metabolic encephalopathy; supportive care -Diabetes mellitus type 2, Insulin/SSI -Severe protein caloric malnutrition, cont TPN -s/p Thrombocytopenia. Now resolved -DVT prophylaxis, SCDs, no pharmacological agent given anemia , thrombocytopenia , massive stroke -Full code status, very poor prognosis - Patient Problems (1) Acute respiratory failure with hypoxia Current Visit: Yes Status: Acute Plan to address problem: Continue with mechanical ventilatory support and daily SBTs as tolerated Lung protective strategies -VAP bundle, HOB >40 - SCDs for VTE prophylaxis - Stress ulcer prophylaxis -Bronchodilators- h/o asthma - TPN, accucheck with glycemic control - ABGs and CXR PRN (2) Acute blood loss anemia Current Visit: Yes Status: Resolved (3) Acute CVA (cerebrovascular accident) Current Visit: Yes Status: Acute (4) Chronic renal insufficiency Current Visit: Yes Status: Acute Qualifiers: Chronic kidney disease stage: C (5) Uncontrolled hypertension Current Visit: Yes Status: Acute (6) Leukocytosis (leucocytosis) Current Visit: Yes Status: Acute Qualifiers: Leukocytosis type: leukemoid reaction Qualified Code(s): D72.823 - Leukemoid reaction (7) Dislodged gastrostomy tube Current Visit: Yes Status: Acute (8) Fungemia Current Visit: Yes Status: Resolved (9) Cardiopulmonary arrest with successful resuscitation Current Visit: Yes Status: Acute Subjective Date of service: 12/20/16 Principal diagnosis: Acute resp failure on MVS; S/P Acute CVA; Acute Encephalopathy; JUANITA Interval history: Seen and examined. Vitals, labs, medications, chart reviewed. On mechanical ventilatory support, not tolerating PS trials this morning. Off vasopressin this morning. No further episodes of vomiting. Discussed in interdisciplinary rounds Objective Vital Signs - 12hr 12/20/16 12/20/16 12/20/16 04:30 04:45 05:00 Temperature Pulse Rate 97 H 97 H 97 H Pulse Rate [ Anterior Bilateral Throughout] Pulse Rate [ Throughout] Respiratory 28 H 24 26 H Rate Respiratory Rate [Anterior Bilateral Throughout] Respiratory Rate [ Throughout] Blood Pressure 117/76 125/80 127/80 O2 Sat by Pulse 100 99 99 Oximetry O2 Sat by Pulse Oximetry [ Anterior Bilateral Throughout] O2 Sat by Pulse Oximetry [ Assessment] 12/20/16 12/20/16 12/20/16 05:15 05:31 05:45 Temperature Pulse Rate 102 H 112 H Pulse Rate [ Anterior Bilateral Throughout] Pulse Rate [ Throughout] Respiratory 25 H 29 H Rate Respiratory Rate [Anterior Bilateral Throughout] Respiratory Rate [ Throughout] Blood Pressure 127/84 116/81 118/75 O2 Sat by Pulse 99 97 98 Oximetry O2 Sat by Pulse Oximetry [ Anterior Bilateral Throughout] O2 Sat by Pulse Oximetry [ Assessment] 12/20/16 12/20/16 12/20/16 06:00 06:15 06:18 Temperature Pulse Rate 111 H 108 H 106 H Pulse Rate [ Anterior Bilateral Throughout] Pulse Rate [ Throughout] Respiratory 23 27 H Rate Respiratory Rate [Anterior Bilateral Throughout] Respiratory Rate [ Throughout] Blood Pressure 124/101 119/68 119/68 O2 Sat by Pulse 97 95 Oximetry O2 Sat by Pulse Oximetry [ Anterior Bilateral Throughout] O2 Sat by Pulse Oximetry [ Assessment] 12/20/16 12/20/16 12/20/16 06:19 06:30 06:45 Temperature Pulse Rate 105 H 103 H 100 H Pulse Rate [ Anterior Bilateral Throughout] Pulse Rate [ Throughout] Respiratory 27 H 25 H Rate Respiratory Rate [Anterior Bilateral Throughout] Respiratory Rate [ Throughout] Blood Pressure 119/68 124/75 123/79 O2 Sat by Pulse 96 96 Oximetry O2 Sat by Pulse Oximetry [ Anterior Bilateral Throughout] O2 Sat by Pulse Oximetry [ Assessment] 12/20/16 12/20/16 12/20/16 07:00 07:15 07:30 Temperature Pulse Rate 99 H 99 H 102 H Pulse Rate [ Anterior Bilateral Throughout] Pulse Rate [ Throughout] Respiratory 26 H 42 H 27 H Rate Respiratory Rate [Anterior Bilateral Throughout] Respiratory Rate [ Throughout] Blood Pressure 115/73 98/38 107/56 O2 Sat by Pulse 97 97 97 Oximetry O2 Sat by Pulse Oximetry [ Anterior Bilateral Throughout] O2 Sat by Pulse Oximetry [ Assessment] 12/20/16 12/20/16 12/20/16 07:45 07:56 08:00 Temperature 97.3 F L Pulse Rate 99 H 98 H 100 H Pulse Rate [ 111 H Anterior Bilateral Throughout] Pulse Rate [ 115 H Throughout] Respiratory 23 25 H Rate Respiratory 29 H Rate [Anterior Bilateral Throughout] Respiratory 31 H Rate [ Throughout] Blood Pressure 117/64 110/74 110/74 O2 Sat by Pulse 97 98 Oximetry O2 Sat by Pulse Oximetry [ Anterior Bilateral Throughout] O2 Sat by Pulse 98 Oximetry [ Assessment] 12/20/16 12/20/16 12/20/16 08:15 08:30 08:45 Temperature Pulse Rate 99 H 105 H 103 H Pulse Rate [ Anterior Bilateral Throughout] Pulse Rate [ Throughout] Respiratory 39 H 29 H 31 H Rate Respiratory Rate [Anterior Bilateral Throughout] Respiratory Rate [ Throughout] Blood Pressure 128/80 111/66 102/61 O2 Sat by Pulse 98 98 97 Oximetry O2 Sat by Pulse Oximetry [ Anterior Bilateral Throughout] O2 Sat by Pulse Oximetry [ Assessment] 12/20/16 12/20/16 12/20/16 09:00 09:15 09:30 Temperature Pulse Rate 104 H 103 H 103 H Pulse Rate [ Anterior Bilateral Throughout] Pulse Rate [ Throughout] Respiratory 30 H 28 H 28 H Rate Respiratory Rate [Anterior Bilateral Throughout] Respiratory Rate [ Throughout] Blood Pressure 100/66 110/56 106/57 O2 Sat by Pulse 98 98 98 Oximetry O2 Sat by Pulse Oximetry [ Anterior Bilateral Throughout] O2 Sat by Pulse Oximetry [ Assessment] 12/20/16 12/20/16 12/20/16 09:45 10:00 10:13 Temperature Pulse Rate 101 H 108 H Pulse Rate [ Anterior Bilateral Throughout] Pulse Rate [ Throughout] Respiratory 25 H 31 H Rate Respiratory Rate [Anterior Bilateral Throughout] Respiratory Rate [ Throughout] Blood Pressure 101/58 105/65 105/65 O2 Sat by Pulse 98 97 Oximetry O2 Sat by Pulse Oximetry [ Anterior Bilateral Throughout] O2 Sat by Pulse Oximetry [ Assessment] 12/20/16 12/20/16 12/20/16 10:15 10:30 10:45 Temperature Pulse Rate 104 H 101 H 102 H Pulse Rate [ Anterior Bilateral Throughout] Pulse Rate [ Throughout] Respiratory 30 H 27 H 30 H Rate Respiratory Rate [Anterior Bilateral Throughout] Respiratory Rate [ Throughout] Blood Pressure 104/62 110/60 109/66 O2 Sat by Pulse 97 98 98 Oximetry O2 Sat by Pulse Oximetry [ Anterior Bilateral Throughout] O2 Sat by Pulse Oximetry [ Assessment] 12/20/16 12/20/16 12/20/16 11:00 11:15 11:30 Temperature Pulse Rate 101 H 104 H 103 H Pulse Rate [ Anterior Bilateral Throughout] Pulse Rate [ Throughout] Respiratory 25 H 25 H 24 Rate Respiratory Rate [Anterior Bilateral Throughout] Respiratory Rate [ Throughout] Blood Pressure 115/63 106/61 111/66 O2 Sat by Pulse 98 97 97 Oximetry O2 Sat by Pulse Oximetry [ Anterior Bilateral Throughout] O2 Sat by Pulse Oximetry [ Assessment] 12/20/16 12/20/16 12/20/16 11:45 12:00 12:01 Temperature 97.3 F L Pulse Rate 105 H 111 H 116 H Pulse Rate [ Anterior Bilateral Throughout] Pulse Rate [ Throughout] Respiratory 22 26 H 32 H Rate Respiratory Rate [Anterior Bilateral Throughout] Respiratory Rate [ Throughout] Blood Pressure 105/60 86/51 91/67 O2 Sat by Pulse 97 96 Oximetry O2 Sat by Pulse 96 Oximetry [ Anterior Bilateral Throughout] O2 Sat by Pulse Oximetry [ Assessment] 12/20/16 12/20/16 12/20/16 12:05 12:11 12:15 Temperature Pulse Rate 107 H 109 H Pulse Rate [ Anterior Bilateral Throughout] Pulse Rate [ Throughout] Respiratory 30 H Rate Respiratory Rate [Anterior Bilateral Throughout] Respiratory Rate [ Throughout] Blood Pressure 107/64 105/63 103/62 O2 Sat by Pulse 97 Oximetry O2 Sat by Pulse Oximetry [ Anterior Bilateral Throughout] O2 Sat by Pulse Oximetry [ Assessment] 12/20/16 12/20/16 12/20/16 12:30 12:45 13:00 Temperature Pulse Rate 109 H 111 H 111 H Pulse Rate [ Anterior Bilateral Throughout] Pulse Rate [ Throughout] Respiratory 33 H 31 H 31 H Rate Respiratory Rate [Anterior Bilateral Throughout] Respiratory Rate [ Throughout] Blood Pressure 105/57 95/52 103/58 O2 Sat by Pulse 97 95 96 Oximetry O2 Sat by Pulse Oximetry [ Anterior Bilateral Throughout] O2 Sat by Pulse Oximetry [ Assessment] 12/20/16 12/20/16 12/20/16 13:03 13:15 13:30 Temperature Pulse Rate 111 H 110 H 113 H Pulse Rate [ Anterior Bilateral Throughout] Pulse Rate [ Throughout] Respiratory 28 H 34 H Rate Respiratory Rate [Anterior Bilateral Throughout] Respiratory Rate [ Throughout] Blood Pressure 103/58 86/51 88/47 O2 Sat by Pulse 96 96 Oximetry O2 Sat by Pulse Oximetry [ Anterior Bilateral Throughout] O2 Sat by Pulse Oximetry [ Assessment] 12/20/16 12/20/16 12/20/16 13:31 13:32 13:45 Temperature Pulse Rate 114 H 114 H Pulse Rate [ 113 H Anterior Bilateral Throughout] Pulse Rate [ 112 H Throughout] Respiratory 31 H Rate Respiratory 35 H Rate [Anterior Bilateral Throughout] Respiratory 33 H Rate [ Throughout] Blood Pressure 88/47 92/54 O2 Sat by Pulse 96 Oximetry O2 Sat by Pulse Oximetry [ Anterior Bilateral Throughout] O2 Sat by Pulse Oximetry [ Assessment] 12/20/16 12/20/16 12/20/16 14:00 14:15 14:30 Temperature Pulse Rate 115 H 116 H 117 H Pulse Rate [ Anterior Bilateral Throughout] Pulse Rate [ Throughout] Respiratory 30 H 30 H 28 H Rate Respiratory Rate [Anterior Bilateral Throughout] Respiratory Rate [ Throughout] Blood Pressure 99/57 88/55 92/54 O2 Sat by Pulse 96 97 97 Oximetry O2 Sat by Pulse Oximetry [ Anterior Bilateral Throughout] O2 Sat by Pulse Oximetry [ Assessment] 12/20/16 12/20/16 12/20/16 14:32 14:45 15:00 Temperature Pulse Rate 115 H 117 H 115 H Pulse Rate [ Anterior Bilateral Throughout] Pulse Rate [ Throughout] Respiratory 31 H 35 H Rate Respiratory Rate [Anterior Bilateral Throughout] Respiratory Rate [ Throughout] Blood Pressure 92/54 84/57 87/53 O2 Sat by Pulse 97 98 Oximetry O2 Sat by Pulse Oximetry [ Anterior Bilateral Throughout] O2 Sat by Pulse Oximetry [ Assessment] 12/20/16 12/20/16 12/20/16 15:01 15:15 15:30 Temperature Pulse Rate 115 H 116 H 117 H Pulse Rate [ Anterior Bilateral Throughout] Pulse Rate [ Throughout] Respiratory 31 H 28 H Rate Respiratory Rate [Anterior Bilateral Throughout] Respiratory Rate [ Throughout] Blood Pressure 87/53 97/54 84/53 O2 Sat by Pulse 97 97 Oximetry O2 Sat by Pulse Oximetry [ Anterior Bilateral Throughout] O2 Sat by Pulse Oximetry [ Assessment] 12/20/16 12/20/16 12/20/16 15:39 15:45 16:00 Temperature Pulse Rate 116 H 117 H 110 H Pulse Rate [ Anterior Bilateral Throughout] Pulse Rate [ Throughout] Respiratory 30 H 25 H Rate Respiratory Rate [Anterior Bilateral Throughout] Respiratory Rate [ Throughout] Blood Pressure 84/53 92/59 81/45 O2 Sat by Pulse 97 97 Oximetry O2 Sat by Pulse Oximetry [ Anterior Bilateral Throughout] O2 Sat by Pulse Oximetry [ Assessment] Constitutional: no acute distress, other (eyes open; not tracking movements) Eyes: non-icteric, other (tracheostomy tube in midline of neck) ENT: oropharynx moist Neck: supple, no lymphadenopathy Effort: normal, mildly labored Ascultation: Bilateral: clear, diminished breath sounds (bases), rales, rhonchi (and referred upper airway sounds) Percussion: Left: dull (base), Bilateral: not dull Cardiovascular: regular rate and rhythm, irregular rhythm Gastrointestinal: normoactive bowel sounds, hypoactive bowel sounds, soft, non- tender, non-distended, other (RLQ stomas with colostomy bags) Integumentary: normal, other Extremities: no cyanosis, no edema (bilateral lower extremity edema), pulses normal, no ischemia or petechiae Neurologic: pupils equal and round, other (encephalopathic) Psychiatric: other (unable to assess) CBC and BMP: 12/19/16 05:02 12/20/16 07:07 ABG, PT/INR, D-dimer: ABG POC ABG pH 7.503 (7.35-7.45) H 12/19/16 09:36 ABG pH 7.450 pH Units (7.350-7.450) 12/05/16 Unknown POC ABG pCO2 30.1 (35-45) L 12/19/16 09:36 ABG pCO2 29.6 mm Hg 12/05/16 Unknown POC ABG pO2 85 (80-105) 12/19/16 09:36 ABG pO2 75.2 mm Hg (80.0-90.0) L 12/05/16 Unknown POC ABG HCO3 23.6 12/19/16 09:36 POC ABG Total CO2 25 12/19/16 09:36 POC ABG O2 Sat 97 12/19/16 09:36 ABG O2 Saturation 96.8 % (95.0-99.0) 12/05/16 Unknown PT/INR, D-dimer PT 16.8 Sec. (12.2-14.9) H 11/17/16 03:20 INR 1.37 (0.87-1.13) H 11/17/16 03:20 Abnormal lab findings: Abnormal Labs 09/03/16 09/03/16 09/03/16 12:12 15:07 16:20 WBC RBC Hgb Hct MCV MCH MCHC RDW Plt Count Lymph % (Auto) Trigg % (Auto) Lymph # Trigg # Baso # Seg Neutrophils % Seg Neuts % (Manual) Lymphocytes % (Manual) Monocytes % (Manual) Eosinophils % (Manual) Basophils % (Manual) Nucleated RBC % Seg Neutrophils # Seg Neutrophils # Man Lymphocytes # (Manual) Monocytes # (Manual) Eosinophils # (Manual) Basophils # (Manual) PT INR Fibrinogen dRVVT Confirm Interp Factor V Activity POC ABG pH 7.452 H POC ABG pCO2 POC ABG pO2 ABG pO2 ABG HCO3 ABG Base Excess ABG Hemoglobin Oxyhemoglobin Sodium Potassium Chloride Carbon Dioxide BUN Creatinine Glucose POC Glucose 178 H Lactic Acid Calcium Phosphorus 2.20 L Magnesium 1.60 L Direct Bilirubin AST ALT Alkaline Phosphatase Lactate Dehydrogenase Troponin T C-Reactive Protein Total Protein Albumin Prealbumin Triglycerides Cholesterol LDL Cholesterol Direct HDL Cholesterol Urine pH Urine WBC (Auto) Urine Creatinine Urine Total Protein Fluid Total Protein Vancomycin Trough Rheumatoid Factor Complement C4 Miscellaneous Test Crossmatch 09/03/16 09/03/16 09/03/16 17:57 17:58 23:50 WBC RBC Hgb Hct MCV MCH MCHC RDW Plt Count Lymph % (Auto) Trigg % (Auto) Lymph # Trigg # Baso # Seg Neutrophils % Seg Neuts % (Manual) Lymphocytes % (Manual) Monocytes % (Manual) Eosinophils % (Manual) Basophils % (Manual) Nucleated RBC % Seg Neutrophils # Seg Neutrophils # Man Lymphocytes # (Manual) Monocytes # (Manual) Eosinophils # (Manual) Basophils # (Manual) PT INR Fibrinogen dRVVT Confirm Interp Factor V Activity POC ABG pH POC ABG pCO2 POC ABG pO2 ABG pO2 ABG HCO3 ABG Base Excess ABG Hemoglobin Oxyhemoglobin Sodium Potassium Chloride Carbon Dioxide BUN Creatinine Glucose POC Glucose 162 H 145 H Lactic Acid Calcium Phosphorus 2.30 L Magnesium Direct Bilirubin AST ALT Alkaline Phosphatase Lactate Dehydrogenase Troponin T C-Reactive Protein Total Protein Albumin Prealbumin Triglycerides Cholesterol LDL Cholesterol Direct HDL Cholesterol Urine pH Urine WBC (Auto) Urine Creatinine Urine Total Protein Fluid Total Protein Vancomycin Trough Rheumatoid Factor Complement C4 Miscellaneous Test Crossmatch 09/04/16 09/04/16 09/04/16 03:31 03:31 05:42 WBC RBC Hgb 9.7 L D Hct MCV 72 L MCH 23 L MCHC RDW 17.5 H Plt Count Lymph % (Auto) 11.1 L Trigg % (Auto) Lymph # Trigg # Baso # Seg Neutrophils % 84.3 H Seg Neuts % (Manual) Lymphocytes % (Manual) Monocytes % (Manual) Eosinophils % (Manual) Basophils % (Manual) Nucleated RBC % Seg Neutrophils # 8.9 H Seg Neutrophils # Man Lymphocytes # (Manual) Monocytes # (Manual) Eosinophils # (Manual) Basophils # (Manual) PT INR Fibrinogen dRVVT Confirm Interp Factor V Activity POC ABG pH POC ABG pCO2 POC ABG pO2 ABG pO2 ABG HCO3 ABG Base Excess ABG Hemoglobin Oxyhemoglobin Sodium 135 L Potassium 2.9 L* Chloride 97.2 L Carbon Dioxide 19 L BUN Creatinine 1.7 H Glucose 170 H POC Glucose 152 H Lactic Acid Calcium Phosphorus Magnesium Direct Bilirubin AST ALT Alkaline Phosphatase Lactate Dehydrogenase Troponin T C-Reactive Protein Total Protein Albumin Prealbumin Triglycerides 160 H Cholesterol LDL Cholesterol Direct HDL Cholesterol 31 L Urine pH Urine WBC (Auto) Urine Creatinine Urine Total Protein Fluid Total Protein Vancomycin Trough Rheumatoid Factor Complement C4 Miscellaneous Test Crossmatch 09/04/16 09/04/16 09/04/16 11:34 17:46 23:29 WBC RBC Hgb Hct MCV MCH MCHC RDW Plt Count Lymph % (Auto) Trigg % (Auto) Lymph # Trigg # Baso # Seg Neutrophils % Seg Neuts % (Manual) Lymphocytes % (Manual) Monocytes % (Manual) Eosinophils % (Manual) Basophils % (Manual) Nucleated RBC % Seg Neutrophils # Seg Neutrophils # Man Lymphocytes # (Manual) Monocytes # (Manual) Eosinophils # (Manual) Basophils # (Manual) PT INR Fibrinogen dRVVT Confirm Interp Factor V Activity POC ABG pH POC ABG pCO2 POC ABG pO2 ABG pO2 ABG HCO3 ABG Base Excess ABG Hemoglobin Oxyhemoglobin Sodium Potassium Chloride Carbon Dioxide BUN Creatinine Glucose POC Glucose 165 H 210 H 139 H Lactic Acid Calcium Phosphorus Magnesium Direct Bilirubin AST ALT Alkaline Phosphatase Lactate Dehydrogenase Troponin T C-Reactive Protein Total Protein Albumin Prealbumin Triglycerides Cholesterol LDL Cholesterol Direct HDL Cholesterol Urine pH Urine WBC (Auto) Urine Creatinine Urine Total Protein Fluid Total Protein Vancomycin Trough Rheumatoid Factor Complement C4 Miscellaneous Test Crossmatch 09/05/16 09/05/16 09/05/16 04:05 04:05 05:38 WBC RBC Hgb Hct MCV 76 L D MCH 23 L MCHC RDW 17.8 H Plt Count Lymph % (Auto) Trigg % (Auto) Lymph # Trigg # Baso # Seg Neutrophils % Seg Neuts % (Manual) Lymphocytes % (Manual) Monocytes % (Manual) Eosinophils % (Manual) Basophils % (Manual) Nucleated RBC % Seg Neutrophils # Seg Neutrophils # Man Lymphocytes # (Manual) Monocytes # (Manual) Eosinophils # (Manual) Basophils # (Manual) PT INR Fibrinogen dRVVT Confirm Interp Factor V Activity POC ABG pH POC ABG pCO2 POC ABG pO2 ABG pO2 ABG HCO3 ABG Base Excess ABG Hemoglobin Oxyhemoglobin Sodium 134 L Potassium Chloride Carbon Dioxide 18 L BUN Creatinine 1.8 H Glucose 192 H POC Glucose 175 H Lactic Acid Calcium Phosphorus Magnesium Direct Bilirubin AST ALT Alkaline Phosphatase Lactate Dehydrogenase Troponin T C-Reactive Protein Total Protein Albumin Prealbumin Triglycerides Cholesterol LDL Cholesterol Direct HDL Cholesterol Urine pH Urine WBC (Auto) Urine Creatinine Urine Total Protein Fluid Total Protein Vancomycin Trough Rheumatoid Factor Complement C4 Miscellaneous Test Crossmatch 09/05/16 09/05/16 09/05/16 11:38 17:48 23:22 WBC RBC Hgb Hct MCV MCH MCHC RDW Plt Count Lymph % (Auto) Trigg % (Auto) Lymph # Trigg # Baso # Seg Neutrophils % Seg Neuts % (Manual) Lymphocytes % (Manual) Monocytes % (Manual) Eosinophils % (Manual) Basophils % (Manual) Nucleated RBC % Seg Neutrophils # Seg Neutrophils # Man Lymphocytes # (Manual) Monocytes # (Manual) Eosinophils # (Manual) Basophils # (Manual) PT INR Fibrinogen dRVVT Confirm Interp Factor V Activity POC ABG pH POC ABG pCO2 POC ABG pO2 ABG pO2 ABG HCO3 ABG Base Excess ABG Hemoglobin Oxyhemoglobin Sodium Potassium Chloride Carbon Dioxide BUN Creatinine Glucose POC Glucose 164 H 186 H 195 H Lactic Acid Calcium Phosphorus Magnesium Direct Bilirubin AST ALT Alkaline Phosphatase Lactate Dehydrogenase Troponin T C-Reactive Protein Total Protein Albumin Prealbumin Triglycerides Cholesterol LDL Cholesterol Direct HDL Cholesterol Urine pH Urine WBC (Auto) Urine Creatinine Urine Total Protein Fluid Total Protein Vancomycin Trough Rheumatoid Factor Complement C4 Miscellaneous Test Crossmatch 09/06/16 09/06/16 09/06/16 04:12 05:59 07:32 WBC RBC Hgb Hct MCV MCH MCHC RDW Plt Count Lymph % (Auto) Trigg % (Auto) Lymph # Trigg # Baso # Seg Neutrophils % Seg Neuts % (Manual) Lymphocytes % (Manual) Monocytes % (Manual) Eosinophils % (Manual) Basophils % (Manual) Nucleated RBC % Seg Neutrophils # Seg Neutrophils # Man Lymphocytes # (Manual) Monocytes # (Manual) Eosinophils # (Manual) Basophils # (Manual) PT INR Fibrinogen dRVVT Confirm Interp Factor V Activity POC ABG pH 7.514 H POC ABG pCO2 29.1 L POC ABG pO2 72 L ABG pO2 ABG HCO3 ABG Base Excess ABG Hemoglobin Oxyhemoglobin Sodium 133 L Potassium 3.4 L Chloride 94.9 L Carbon Dioxide 19 L BUN 30 H Creatinine 2.1 H Glucose 139 H POC Glucose 146 H Lactic Acid Calcium Phosphorus Magnesium Direct Bilirubin AST ALT Alkaline Phosphatase Lactate Dehydrogenase Troponin T C-Reactive Protein Total Protein Albumin Prealbumin Triglycerides Cholesterol LDL Cholesterol Direct HDL Cholesterol Urine pH Urine WBC (Auto) Urine Creatinine Urine Total Protein Fluid Total Protein Vancomycin Trough Rheumatoid Factor Complement C4 Miscellaneous Test Crossmatch 09/06/16 09/06/16 09/06/16 11:57 17:58 19:02 WBC RBC Hgb Hct MCV MCH MCHC RDW Plt Count Lymph % (Auto) Trigg % (Auto) Lymph # Trigg # Baso # Seg Neutrophils % Seg Neuts % (Manual) Lymphocytes % (Manual) Monocytes % (Manual) Eosinophils % (Manual) Basophils % (Manual) Nucleated RBC % Seg Neutrophils # Seg Neutrophils # Man Lymphocytes # (Manual) Monocytes # (Manual) Eosinophils # (Manual) Basophils # (Manual) PT INR Fibrinogen dRVVT Confirm Interp Factor V Activity POC ABG pH 7.465 H POC ABG pCO2 32.0 L POC ABG pO2 ABG pO2 ABG HCO3 ABG Base Excess ABG Hemoglobin Oxyhemoglobin Sodium Potassium Chloride Carbon Dioxide BUN Creatinine Glucose POC Glucose 165 H 160 H Lactic Acid Calcium Phosphorus Magnesium Direct Bilirubin AST ALT Alkaline Phosphatase Lactate Dehydrogenase Troponin T C-Reactive Protein Total Protein Albumin Prealbumin Triglycerides Cholesterol LDL Cholesterol Direct HDL Cholesterol Urine pH Urine WBC (Auto) Urine Creatinine Urine Total Protein Fluid Total Protein Vancomycin Trough Rheumatoid Factor Complement C4 Miscellaneous Test Crossmatch 09/06/16 09/07/16 09/07/16 23:45 02:47 02:47 WBC RBC Hgb Hct MCV MCH MCHC RDW Plt Count Lymph % (Auto) Trigg % (Auto) Lymph # Trigg # Baso # Seg Neutrophils % Seg Neuts % (Manual) Lymphocytes % (Manual) Monocytes % (Manual) Eosinophils % (Manual) Basophils % (Manual) Nucleated RBC % Seg Neutrophils # Seg Neutrophils # Man Lymphocytes # (Manual) Monocytes # (Manual) Eosinophils # (Manual) Basophils # (Manual) PT INR Fibrinogen dRVVT Confirm Interp Factor V Activity POC ABG pH POC ABG pCO2 POC ABG pO2 ABG pO2 ABG HCO3 ABG Base Excess ABG Hemoglobin Oxyhemoglobin Sodium Potassium Chloride Carbon Dioxide BUN Creatinine Glucose POC Glucose 204 H Lactic Acid Calcium Phosphorus Magnesium Direct Bilirubin AST ALT Alkaline Phosphatase Lactate Dehydrogenase Troponin T C-Reactive Protein Total Protein Albumin Prealbumin Triglycerides Cholesterol LDL Cholesterol Direct HDL Cholesterol Urine pH Urine WBC (Auto) 68.0 H Urine Creatinine 106.1 H Urine Total Protein Fluid Total Protein Vancomycin Trough Rheumatoid Factor Complement C4 Miscellaneous Test Crossmatch 09/07/16 09/07/16 09/07/16 04:50 06:19 06:39 WBC RBC Hgb Hct MCV MCH MCHC RDW Plt Count Lymph % (Auto) Trigg % (Auto) Lymph # Trigg # Baso # Seg Neutrophils % Seg Neuts % (Manual) Lymphocytes % (Manual) Monocytes % (Manual) Eosinophils % (Manual) Basophils % (Manual) Nucleated RBC % Seg Neutrophils # Seg Neutrophils # Man Lymphocytes # (Manual) Monocytes # (Manual) Eosinophils # (Manual) Basophils # (Manual) PT INR Fibrinogen dRVVT Confirm Interp Factor V Activity POC ABG pH 7.457 H POC ABG pCO2 32.1 L POC ABG pO2 76 L ABG pO2 ABG HCO3 ABG Base Excess ABG Hemoglobin Oxyhemoglobin Sodium 132 L Potassium Chloride 94.7 L Carbon Dioxide BUN 53 H Creatinine 2.9 H Glucose 151 H POC Glucose 149 H Lactic Acid Calcium Phosphorus Magnesium Direct Bilirubin AST ALT Alkaline Phosphatase Lactate Dehydrogenase Troponin T C-Reactive Protein Total Protein Albumin Prealbumin Triglycerides Cholesterol LDL Cholesterol Direct HDL Cholesterol Urine pH Urine WBC (Auto) Urine Creatinine Urine Total Protein Fluid Total Protein Vancomycin Trough Rheumatoid Factor Complement C4 Miscellaneous Test Crossmatch 09/07/16 09/07/16 09/07/16 09:20 11:43 11:43 WBC 19.4 H RBC Hgb 8.3 L Hct 26.4 L D MCV 72 L D MCH 22 L MCHC RDW 17.9 H Plt Count Lymph % (Auto) 8.5 L Trigg % (Auto) Lymph # Trigg # 1.0 H Baso # Seg Neutrophils % 85.8 H Seg Neuts % (Manual) Lymphocytes % (Manual) Monocytes % (Manual) Eosinophils % (Manual) Basophils % (Manual) Nucleated RBC % Seg Neutrophils # 16.6 H Seg Neutrophils # Man Lymphocytes # (Manual) Monocytes # (Manual) Eosinophils # (Manual) Basophils # (Manual) PT INR Fibrinogen dRVVT Confirm Interp Factor V Activity POC ABG pH POC ABG pCO2 POC ABG pO2 ABG pO2 ABG HCO3 ABG Base Excess ABG Hemoglobin Oxyhemoglobin Sodium 134 L Potassium Chloride 97.2 L Carbon Dioxide 20 L BUN 58 H Creatinine 2.9 H Glucose 147 H POC Glucose Lactic Acid Calcium Phosphorus 2.40 L Magnesium 2.40 H Direct Bilirubin AST ALT Alkaline Phosphatase Lactate Dehydrogenase Troponin T C-Reactive Protein Total Protein 5.8 L Albumin 2.2 L Prealbumin Triglycerides Cholesterol LDL Cholesterol Direct HDL Cholesterol Urine pH Urine WBC (Auto) Urine Creatinine Urine Total Protein Fluid Total Protein Vancomycin Trough Rheumatoid Factor Complement C4 58 H Miscellaneous Test Crossmatch 09/07/16 09/07/16 09/07/16 11:50 16:00 17:31 WBC RBC Hgb Hct MCV MCH MCHC RDW Plt Count Lymph % (Auto) [place] % (Auto) Lymph # Trigg # Baso # Seg Neutrophils % Seg Neuts % (Manual) Lymphocytes % (Manual) Monocytes % (Manual) Eosinophils % (Manual) Basophils % (Manual) Nucleated RBC % Seg Neutrophils # Seg Neutrophils # Man Lymphocytes # (Manual) Monocytes # (Manual) Eosinophils # (Manual) Basophils # (Manual) PT INR Fibrinogen dRVVT Confirm Interp Factor V Activity POC ABG pH POC ABG pCO2 POC ABG pO2 158 H ABG pO2 ABG HCO3 ABG Base Excess ABG Hemoglobin Oxyhemoglobin Sodium Potassium Chloride Carbon Dioxide BUN Creatinine Glucose POC Glucose 175 H Lactic Acid Calcium Phosphorus Magnesium Direct Bilirubin AST ALT Alkaline Phosphatase Lactate Dehydrogenase Troponin T C-Reactive Protein Total Protein Albumin Prealbumin Triglycerides Cholesterol LDL Cholesterol Direct HDL Cholesterol Urine pH Urine WBC (Auto) Urine Creatinine 66.3 H Urine Total Protein Fluid Total Protein Vancomycin Trough Rheumatoid Factor Complement C4 Miscellaneous Test Crossmatch 09/07/16 09/08/16 09/08/16 23:50 05:46 06:18 WBC 17.8 H RBC 3.58 L Hgb 8.1 L Hct 25.5 L MCV 71 L MCH 23 L MCHC RDW 18.4 H Plt Count Lymph % (Auto) [place] % (Auto) Lymph # Trigg # Baso # Seg Neutrophils % Seg Neuts % (Manual) 92.0 H Lymphocytes % (Manual) 6.0 L Monocytes % (Manual) Eosinophils % (Manual) Basophils % (Manual) Nucleated RBC % Seg Neutrophils # Seg Neutrophils # Man 16.4 H Lymphocytes # (Manual) 1.1 L Monocytes # (Manual) Eosinophils # (Manual) Basophils # (Manual) PT INR Fibrinogen dRVVT Confirm Interp Factor V Activity POC ABG pH POC ABG pCO2 34.3 L POC ABG pO2 71 L ABG pO2 ABG HCO3 ABG Base Excess ABG Hemoglobin Oxyhemoglobin Sodium Potassium Chloride Carbon Dioxide BUN Creatinine Glucose POC Glucose 216 H Lactic Acid Calcium Phosphorus Magnesium Direct Bilirubin AST ALT Alkaline Phosphatase Lactate Dehydrogenase Troponin T C-Reactive Protein Total Protein Albumin Prealbumin Triglycerides Cholesterol LDL Cholesterol Direct HDL Cholesterol Urine pH Urine WBC (Auto) Urine Creatinine Urine Total Protein Fluid Total Protein Vancomycin Trough Rheumatoid Factor Complement C4 Miscellaneous Test Crossmatch 09/08/16 09/08/16 09/08/16 06:18 06:51 10:55 WBC RBC Hgb Hct MCV MCH MCHC RDW Plt Count Lymph % (Auto) [place] % (Auto) Lymph # Trigg # Baso # Seg Neutrophils % Seg Neuts % (Manual) Lymphocytes % (Manual) Monocytes % (Manual) Eosinophils % (Manual) Basophils % (Manual) Nucleated RBC % Seg Neutrophils # Seg Neutrophils # Man Lymphocytes # (Manual) Monocytes # (Manual) Eosinophils # (Manual) Basophils # (Manual) PT INR Fibrinogen dRVVT Confirm Interp Factor V Activity POC ABG pH POC ABG pCO2 POC ABG pO2 ABG pO2 ABG HCO3 ABG Base Excess ABG Hemoglobin Oxyhemoglobin Sodium 133 L Potassium Chloride 96.9 L Carbon Dioxide 20 L BUN 63 H Creatinine 2.7 H Glucose 195 H POC Glucose 204 H 169 H Lactic Acid Calcium Phosphorus Magnesium Direct Bilirubin AST ALT Alkaline Phosphatase Lactate Dehydrogenase Troponin T C-Reactive Protein Total Protein Albumin Prealbumin Triglycerides Cholesterol LDL Cholesterol Direct HDL Cholesterol Urine pH Urine WBC (Auto) Urine Creatinine Urine Total Protein Fluid Total Protein Vancomycin Trough Rheumatoid Factor Complement C4 Miscellaneous Test Crossmatch 09/08/16 09/08/16 09/08/16 11:48 11:48 11:48 WBC RBC Hgb Hct MCV MCH MCHC RDW Plt Count Lymph % (Auto) [place] % (Auto) Lymph # [place]igg # Baso # Seg Neutrophils % Seg Neuts % (Manual) Lymphocytes % (Manual) Monocytes % (Manual) Eosinophils % (Manual) Basophils % (Manual) Nucleated RBC % Seg Neutrophils # Seg Neutrophils # Man Lymphocytes # (Manual) Monocytes # (Manual) Eosinophils # (Manual) Basophils # (Manual) PT INR Fibrinogen 750 H dRVVT Confirm Interp Factor V Activity POC ABG pH POC ABG pCO2 POC ABG pO2 ABG pO2 ABG HCO3 ABG Base Excess ABG Hemoglobin Oxyhemoglobin Sodium Potassium Chloride Carbon Dioxide BUN Creatinine Glucose POC Glucose Lactic Acid Calcium Phosphorus Magnesium Direct Bilirubin AST ALT Alkaline Phosphatase Lactate Dehydrogenase Troponin T C-Reactive Protein 15.70 H Total Protein Albumin Prealbumin Triglycerides Cholesterol LDL Cholesterol Direct HDL Cholesterol Urine pH Urine WBC (Auto) Urine Creatinine Urine Total Protein Fluid Total Protein Vancomycin Trough Rheumatoid Factor 24 H Complement C4 Miscellaneous Test Crossmatch 09/08/16 09/08/16 09/09/16 15:35 18:25 00:24 WBC RBC Hgb Hct MCV MCH MCHC RDW Plt Count Lymph % (Auto) [place] % (Auto) Lymph # [place]igg # Baso # Seg Neutrophils % Seg Neuts % (Manual) Lymphocytes % (Manual) Monocytes % (Manual) Eosinophils % (Manual) Basophils % (Manual) Nucleated RBC % Seg Neutrophils # Seg Neutrophils # Man Lymphocytes # (Manual) Monocytes # (Manual) Eosinophils # (Manual) Basophils # (Manual) PT INR Fibrinogen dRVVT Confirm Interp Factor V Activity 182 H POC ABG pH POC ABG pCO2 POC ABG pO2 ABG pO2 ABG HCO3 ABG Base Excess ABG Hemoglobin Oxyhemoglobin Sodium Potassium Chloride Carbon Dioxide BUN Creatinine Glucose POC Glucose 184 H 216 H Lactic Acid Calcium Phosphorus Magnesium Direct Bilirubin AST ALT Alkaline Phosphatase Lactate Dehydrogenase Troponin T C-Reactive Protein Total Protein Albumin Prealbumin Triglycerides Cholesterol LDL Cholesterol Direct HDL Cholesterol Urine pH Urine WBC (Auto) Urine Creatinine Urine Total Protein Fluid Total Protein Vancomycin Trough Rheumatoid Factor Complement C4 Miscellaneous Test Crossmatch 09/09/16 09/09/16 09/09/16 03:00 03:00 04:04 WBC 27.9 H RBC Hgb 8.7 L Hct 28.1 L MCV 72 L MCH 22 L MCHC RDW 18.4 H Plt Count 485 H Lymph % (Auto) [place] % (Auto) Lymph # Trigg # Baso # Seg Neutrophils % Seg Neuts % (Manual) 77.0 H Lymphocytes % (Manual) 9.0 L Monocytes % (Manual) Eosinophils % (Manual) Basophils % (Manual) Nucleated RBC % Seg Neutrophils # Seg Neutrophils # Man 21.5 H Lymphocytes # (Manual) Monocytes # (Manual) 2.0 H Eosinophils # (Manual) Basophils # (Manual) PT INR Fibrinogen dRVVT Confirm Interp Factor V Activity POC ABG pH POC ABG pCO2 POC ABG pO2 121 H ABG pO2 ABG HCO3 ABG Base Excess ABG Hemoglobin Oxyhemoglobin Sodium 135 L Potassium Chloride 96.3 L Carbon Dioxide 21 L BUN 83 H Creatinine 3.0 H Glucose 135 H POC Glucose Lactic Acid Calcium Phosphorus Magnesium Direct Bilirubin AST ALT Alkaline Phosphatase Lactate Dehydrogenase Troponin T C-Reactive Protein Total Protein Albumin Prealbumin Triglycerides Cholesterol LDL Cholesterol Direct HDL Cholesterol Urine pH Urine WBC (Auto) Urine Creatinine Urine Total Protein Fluid Total Protein Vancomycin Trough Rheumatoid Factor Complement C4 Miscellaneous Test Crossmatch 09/09/16 09/09/16 09/09/16 05:41 11:55 14:13 WBC RBC Hgb Hct MCV MCH MCHC RDW Plt Count Lymph % (Auto) [place] % (Auto) Lymph # [place]igg # Baso # Seg Neutrophils % Seg Neuts % (Manual) Lymphocytes % (Manual) Monocytes % (Manual) Eosinophils % (Manual) Basophils % (Manual) Nucleated RBC % Seg Neutrophils # Seg Neutrophils # Man Lymphocytes # (Manual) Monocytes # (Manual) Eosinophils # (Manual) Basophils # (Manual) PT INR Fibrinogen dRVVT Confirm Interp Factor V Activity POC ABG pH POC ABG pCO2 POC ABG pO2 ABG pO2 ABG HCO3 ABG Base Excess ABG Hemoglobin Oxyhemoglobin Sodium Potassium Chloride Carbon Dioxide BUN Creatinine Glucose POC Glucose 155 H 186 H Lactic Acid Calcium Phosphorus Magnesium Direct Bilirubin AST ALT Alkaline Phosphatase Lactate Dehydrogenase Troponin T C-Reactive Protein Total Protein Albumin Prealbumin Triglycerides Cholesterol LDL Cholesterol Direct HDL Cholesterol Urine pH Urine WBC (Auto) 25.0 H Urine Creatinine Urine Total Protein Fluid Total Protein Vancomycin Trough Rheumatoid Factor Complement C4 Miscellaneous Test Crossmatch 09/09/16 09/09/16 09/10/16 17:33 23:13 05:09 WBC RBC Hgb Hct MCV MCH MCHC RDW Plt Count Lymph % (Auto) [place] % (Auto) Lymph # [place] # Baso # Seg Neutrophils % Seg Neuts % (Manual) Lymphocytes % (Manual) Monocytes % (Manual) Eosinophils % (Manual) Basophils % (Manual) Nucleated RBC % Seg Neutrophils # Seg Neutrophils # Man Lymphocytes # (Manual) Monocytes # (Manual) Eosinophils # (Manual) Basophils # (Manual) PT INR Fibrinogen dRVVT Confirm Interp Factor V Activity POC ABG pH POC ABG pCO2 POC ABG pO2 74 L ABG pO2 ABG HCO3 ABG Base Excess ABG Hemoglobin Oxyhemoglobin Sodium Potassium Chloride Carbon Dioxide BUN Creatinine Glucose POC Glucose 211 H 215 H Lactic Acid Calcium Phosphorus Magnesium Direct Bilirubin AST ALT Alkaline Phosphatase Lactate Dehydrogenase Troponin T C-Reactive Protein Total Protein Albumin Prealbumin Triglycerides Cholesterol LDL Cholesterol Direct HDL Cholesterol Urine pH Urine WBC (Auto) Urine Creatinine Urine Total Protein Fluid Total Protein Vancomycin Trough Rheumatoid Factor Complement C4 Miscellaneous Test Crossmatch 09/10/16 09/10/16 09/10/16 05:17 05:17 11:31 WBC 15.8 H RBC 3.25 L Hgb 7.3 L Hct 22.9 L MCV 71 L MCH 23 L MCHC RDW 18.4 H Plt Count Lymph % (Auto) [place] % (Auto) Lymph # [place]igg # Baso # Seg Neutrophils % Seg Neuts % (Manual) 91.0 H Lymphocytes % (Manual) 4.0 L Monocytes % (Manual) Eosinophils % (Manual) Basophils % (Manual) Nucleated RBC % Seg Neutrophils # Seg Neutrophils # Man 14.4 H Lymphocytes # (Manual) 0.6 L Monocytes # (Manual) Eosinophils # (Manual) Basophils # (Manual) PT INR Fibrinogen dRVVT Confirm Interp Factor V Activity POC ABG pH POC ABG pCO2 POC ABG pO2 ABG pO2 ABG HCO3 ABG Base Excess ABG Hemoglobin Oxyhemoglobin Sodium Potassium Chloride Carbon Dioxide 21 L BUN 93 H Creatinine 2.9 H Glucose 146 H POC Glucose 188 H Lactic Acid Calcium 8.1 L Phosphorus Magnesium Direct Bilirubin AST ALT Alkaline Phosphatase Lactate Dehydrogenase Troponin T C-Reactive Protein Total Protein Albumin Prealbumin Triglycerides Cholesterol LDL Cholesterol Direct HDL Cholesterol Urine pH Urine WBC (Auto) Urine Creatinine Urine Total Protein Fluid Total Protein Vancomycin Trough Rheumatoid Factor Complement C4 Miscellaneous Test Crossmatch 09/10/16 09/10/16 09/10/16 13:17 17:20 23:32 WBC RBC Hgb Hct MCV MCH MCHC RDW Plt Count Lymph % (Auto) [place] % (Auto) Lymph # [place] # Baso # Seg Neutrophils % Seg Neuts % (Manual) Lymphocytes % (Manual) Monocytes % (Manual) Eosinophils % (Manual) Basophils % (Manual) Nucleated RBC % Seg Neutrophils # Seg Neutrophils # Man Lymphocytes # (Manual) Monocytes # (Manual) Eosinophils # (Manual) Basophils # (Manual) PT INR Fibrinogen dRVVT Confirm Interp Factor V Activity POC ABG pH POC ABG pCO2 POC ABG pO2 ABG pO2 ABG HCO3 ABG Base Excess ABG Hemoglobin Oxyhemoglobin Sodium Potassium Chloride Carbon Dioxide BUN Creatinine Glucose POC Glucose 199 H 186 H Lactic Acid Calcium Phosphorus Magnesium Direct Bilirubin AST ALT Alkaline Phosphatase Lactate Dehydrogenase Troponin T C-Reactive Protein Total Protein Albumin Prealbumin Triglycerides Cholesterol LDL Cholesterol Direct HDL Cholesterol Urine pH Urine WBC (Auto) Urine Creatinine Urine Total Protein Fluid Total Protein Vancomycin Trough Rheumatoid Factor Complement C4 Miscellaneous Test Crossmatch See Detail 09/11/16 09/11/16 09/11/16 05:10 05:10 05:17 WBC 28.4 H RBC Hgb 9.2 L Hct 29.3 L D MCV 73 L MCH 23 L MCHC RDW 18.9 H Plt Count 452 H Lymph % (Auto) [place] % (Auto) Lymph # [place] # Baso # Seg Neutrophils % Seg Neuts % (Manual) 89.5 H Lymphocytes % (Manual) 2.0 L Monocytes % (Manual) Eosinophils % (Manual) Basophils % (Manual) Nucleated RBC % Seg Neutrophils # Seg Neutrophils # Man 25.4 H Lymphocytes # (Manual) 0.6 L Monocytes # (Manual) 1.3 H Eosinophils # (Manual) Basophils # (Manual) PT INR Fibrinogen dRVVT Confirm Interp Factor V Activity POC ABG pH POC ABG pCO2 POC ABG pO2 ABG pO2 ABG HCO3 ABG Base Excess ABG Hemoglobin Oxyhemoglobin Sodium 136 L Potassium Chloride Carbon Dioxide 18 L BUN 107 H Creatinine 2.6 H Glucose 187 H POC Glucose 230 H Lactic Acid Calcium 8.3 L Phosphorus Magnesium Direct Bilirubin AST ALT Alkaline Phosphatase Lactate Dehydrogenase Troponin T C-Reactive Protein Total Protein Albumin Prealbumin Triglycerides Cholesterol LDL Cholesterol Direct HDL Cholesterol Urine pH Urine WBC (Auto) Urine Creatinine Urine Total Protein Fluid Total Protein Vancomycin Trough Rheumatoid Factor Complement C4 Miscellaneous Test Crossmatch 09/11/16 09/11/16 09/11/16 05:55 12:02 17:32 WBC RBC Hgb Hct MCV MCH MCHC RDW Plt Count Lymph % (Auto) [place] % (Auto) Lymph # [place] # Baso # Seg Neutrophils % Seg Neuts % (Manual) Lymphocytes % (Manual) Monocytes % (Manual) Eosinophils % (Manual) Basophils % (Manual) Nucleated RBC % Seg Neutrophils # Seg Neutrophils # Man Lymphocytes # (Manual) Monocytes # (Manual) Eosinophils # (Manual) Basophils # (Manual) PT INR Fibrinogen dRVVT Confirm Interp Factor V Activity POC ABG pH POC ABG pCO2 33.8 L POC ABG pO2 ABG pO2 ABG HCO3 ABG Base Excess ABG Hemoglobin Oxyhemoglobin Sodium Potassium Chloride Carbon Dioxide BUN Creatinine Glucose POC Glucose 191 H 239 H Lactic Acid Calcium Phosphorus Magnesium Direct Bilirubin AST ALT Alkaline Phosphatase Lactate Dehydrogenase Troponin T C-Reactive Protein Total Protein Albumin Prealbumin Triglycerides Cholesterol LDL Cholesterol Direct HDL Cholesterol Urine pH Urine WBC (Auto) Urine Creatinine Urine Total Protein Fluid Total Protein Vancomycin Trough Rheumatoid Factor Complement C4 Miscellaneous Test Crossmatch 09/11/16 09/12/16 09/12/16 23:52 05:09 05:32 WBC RBC Hgb Hct MCV MCH MCHC RDW Plt Count Lymph % (Auto) [place] % (Auto) Lymph # [place] # Baso # Seg Neutrophils % Seg Neuts % (Manual) Lymphocytes % (Manual) Monocytes % (Manual) Eosinophils % (Manual) Basophils % (Manual) Nucleated RBC % Seg Neutrophils # Seg Neutrophils # Man Lymphocytes # (Manual) Monocytes # (Manual) Eosinophils # (Manual) Basophils # (Manual) PT INR Fibrinogen dRVVT Confirm Interp Factor V Activity POC ABG pH POC ABG pCO2 34.6 L POC ABG pO2 ABG pO2 ABG HCO3 ABG Base Excess ABG Hemoglobin Oxyhemoglobin Sodium Potassium Chloride Carbon Dioxide BUN Creatinine Glucose POC Glucose 265 H 184 H Lactic Acid Calcium Phosphorus Magnesium Direct Bilirubin AST ALT Alkaline Phosphatase Lactate Dehydrogenase Troponin T C-Reactive Protein Total Protein Albumin Prealbumin Triglycerides Cholesterol LDL Cholesterol Direct HDL Cholesterol Urine pH Urine WBC (Auto) Urine Creatinine Urine Total Protein Fluid Total Protein Vancomycin Trough Rheumatoid Factor Complement C4 Miscellaneous Test Crossmatch 09/12/16 09/12/16 09/12/16 06:45 06:45 07:22 WBC 31.7 H RBC 3.54 L Hgb 8.3 L Hct 25.9 L MCV 73 L MCH 23 L MCHC RDW 18.9 H Plt Count Lymph % (Auto) [place] % (Auto) Lymph # [place] # Baso # Seg Neutrophils % Seg Neuts % (Manual) 88.5 H Lymphocytes % (Manual) 4.5 L Monocytes % (Manual) Eosinophils % (Manual) Basophils % (Manual) Nucleated RBC % Seg Neutrophils # Seg Neutrophils # Man 28.1 H Lymphocytes # (Manual) Monocytes # (Manual) 1.0 H Eosinophils # (Manual) Basophils # (Manual) PT INR Fibrinogen dRVVT Confirm Interp Factor V Activity POC ABG pH POC ABG pCO2 POC ABG pO2 ABG pO2 ABG HCO3 ABG Base Excess ABG Hemoglobin Oxyhemoglobin Sodium Potassium Chloride Carbon Dioxide 20 L BUN 115 H Creatinine 2.7 H Glucose 165 H POC Glucose Lactic Acid Calcium 8.0 L Phosphorus Magnesium Direct Bilirubin AST ALT Alkaline Phosphatase Lactate Dehydrogenase Troponin T C-Reactive Protein Total Protein Albumin Prealbumin Triglycerides 217 H Cholesterol LDL Cholesterol Direct HDL Cholesterol Urine pH Urine WBC (Auto) Urine Creatinine Urine Total Protein Fluid Total Protein Vancomycin Trough Rheumatoid Factor Complement C4 Miscellaneous Test Crossmatch 09/12/16 09/12/16 09/12/16 07:22 09:59 12:21 WBC RBC Hgb Hct MCV MCH MCHC RDW Plt Count Lymph % (Auto) [place] % (Auto) Lymph # [place] # Baso # Seg Neutrophils % Seg Neuts % (Manual) Lymphocytes % (Manual) Monocytes % (Manual) Eosinophils % (Manual) Basophils % (Manual) Nucleated RBC % Seg Neutrophils # Seg Neutrophils # Man Lymphocytes # (Manual) Monocytes # (Manual) Eosinophils # (Manual) Basophils # (Manual) PT INR Fibrinogen dRVVT Confirm Interp Positive H Factor V Activity POC ABG pH POC ABG pCO2 POC ABG pO2 ABG pO2 ABG HCO3 ABG Base Excess ABG Hemoglobin Oxyhemoglobin Sodium Potassium Chloride Carbon Dioxide BUN Creatinine Glucose POC Glucose 224 H Lactic Acid Calcium Phosphorus Magnesium Direct Bilirubin AST ALT Alkaline Phosphatase Lactate Dehydrogenase Troponin T C-Reactive Protein 1.70 H Total Protein Albumin Prealbumin Triglycerides Cholesterol LDL Cholesterol Direct HDL Cholesterol Urine pH Urine WBC (Auto) Urine Creatinine Urine Total Protein Fluid Total Protein Vancomycin Trough Rheumatoid Factor Complement C4 Miscellaneous Test Crossmatch 09/12/16 09/12/16 09/13/16 16:51 23:28 04:00 WBC 45.0 H* RBC Hgb 9.4 L Hct MCV 75 L MCH 23 L MCHC RDW 19.0 H Plt Count 470 H Lymph % (Auto) [place] % (Auto) Lymph # [place] # Baso # Seg Neutrophils % Seg Neuts % (Manual) 89.0 H Lymphocytes % (Manual) 5.0 L Monocytes % (Manual) Eosinophils % (Manual) Basophils % (Manual) Nucleated RBC % Seg Neutrophils # Seg Neutrophils # Man 40.1 H Lymphocytes # (Manual) Monocytes # (Manual) Eosinophils # (Manual) Basophils # (Manual) PT INR Fibrinogen dRVVT Confirm Interp Factor V Activity POC ABG pH POC ABG pCO2 POC ABG pO2 ABG pO2 ABG HCO3 ABG Base Excess ABG Hemoglobin Oxyhemoglobin Sodium Potassium Chloride Carbon Dioxide BUN Creatinine Glucose POC Glucose 169 H 150 H Lactic Acid Calcium Phosphorus Magnesium Direct Bilirubin AST ALT Alkaline Phosphatase Lactate Dehydrogenase Troponin T C-Reactive Protein Total Protein Albumin Prealbumin Triglycerides Cholesterol LDL Cholesterol Direct HDL Cholesterol Urine pH Urine WBC (Auto) Urine Creatinine Urine Total Protein Fluid Total Protein Vancomycin Trough Rheumatoid Factor Complement C4 Miscellaneous Test Crossmatch 09/13/16 09/13/16 09/13/16 04:00 11:26 17:31 WBC RBC Hgb Hct MCV MCH MCHC RDW Plt Count Lymph % (Auto) [place] % (Auto) Lymph # [place] # Baso # Seg Neutrophils % Seg Neuts % (Manual) Lymphocytes % (Manual) Monocytes % (Manual) Eosinophils % (Manual) Basophils % (Manual) Nucleated RBC % Seg Neutrophils # Seg Neutrophils # Man Lymphocytes # (Manual) Monocytes # (Manual) Eosinophils # (Manual) Basophils # (Manual) PT INR Fibrinogen dRVVT Confirm Interp Factor V Activity POC ABG pH POC ABG pCO2 POC ABG pO2 ABG pO2 ABG HCO3 ABG Base Excess ABG Hemoglobin Oxyhemoglobin Sodium Potassium Chloride Carbon Dioxide 20 L BUN 116 H Creatinine 3.0 H Glucose 172 H POC Glucose 140 H 183 H Lactic Acid Calcium Phosphorus Magnesium Direct Bilirubin AST ALT Alkaline Phosphatase Lactate Dehydrogenase Troponin T C-Reactive Protein Total Protein 6.2 L Albumin 2.9 L Prealbumin Triglycerides Cholesterol LDL Cholesterol Direct HDL Cholesterol Urine pH Urine WBC (Auto) Urine Creatinine Urine Total Protein Fluid Total Protein Vancomycin Trough Rheumatoid Factor Complement C4 Miscellaneous Test Crossmatch 09/13/16 09/14/16 09/14/16 23:23 04:06 04:07 WBC 29.4 H RBC Hgb 8.9 L Hct 27.3 L MCV 75 L MCH 24 L MCHC RDW 19.1 H Plt Count Lymph % (Auto) [place] % (Auto) Lymph # [place]igg # Baso # Seg Neutrophils % Seg Neuts % (Manual) 84.0 H Lymphocytes % (Manual) 6.0 L Monocytes % (Manual) 9.0 H Eosinophils % (Manual) Basophils % (Manual) Nucleated RBC % Seg Neutrophils # Seg Neutrophils # Man 24.7 H Lymphocytes # (Manual) Monocytes # (Manual) 2.6 H Eosinophils # (Manual) Basophils # (Manual) PT INR Fibrinogen dRVVT Confirm Interp Factor V Activity POC ABG pH 7.342 L POC ABG pCO2 POC ABG pO2 116 H ABG pO2 ABG HCO3 ABG Base Excess ABG Hemoglobin Oxyhemoglobin Sodium Potassium Chloride Carbon Dioxide BUN Creatinine Glucose POC Glucose 154 H Lactic Acid Calcium Phosphorus Magnesium Direct Bilirubin AST ALT Alkaline Phosphatase Lactate Dehydrogenase Troponin T C-Reactive Protein Total Protein Albumin Prealbumin Triglycerides Cholesterol LDL Cholesterol Direct HDL Cholesterol Urine pH Urine WBC (Auto) Urine Creatinine Urine Total Protein Fluid Total Protein Vancomycin Trough Rheumatoid Factor Complement C4 Miscellaneous Test Crossmatch 09/14/16 09/14/16 09/14/16 04:07 05:29 12:19 WBC RBC Hgb Hct MCV MCH MCHC RDW Plt Count Lymph % (Auto) [place] % (Auto) Lymph # [place] # Baso # Seg Neutrophils % Seg Neuts % (Manual) Lymphocytes % (Manual) Monocytes % (Manual) Eosinophils % (Manual) Basophils % (Manual) Nucleated RBC % Seg Neutrophils # Seg Neutrophils # Man Lymphocytes # (Manual) Monocytes # (Manual) Eosinophils # (Manual) Basophils # (Manual) PT INR Fibrinogen dRVVT Confirm Interp Factor V Activity POC ABG pH POC ABG pCO2 POC ABG pO2 ABG pO2 ABG HCO3 ABG Base Excess ABG Hemoglobin Oxyhemoglobin Sodium 136 L Potassium Chloride Carbon Dioxide 18 L BUN 121 H Creatinine 2.8 H Glucose 214 H POC Glucose 239 H 181 H Lactic Acid Calcium Phosphorus Magnesium Direct Bilirubin AST ALT Alkaline Phosphatase Lactate Dehydrogenase Troponin T C-Reactive Protein Total Protein Albumin Prealbumin Triglycerides Cholesterol LDL Cholesterol Direct HDL Cholesterol Urine pH Urine WBC (Auto) Urine Creatinine Urine Total Protein Fluid Total Protein Vancomycin Trough Rheumatoid Factor Complement C4 Miscellaneous Test Crossmatch 09/14/16 09/14/16 09/15/16 18:12 23:37 05:00 WBC 26.1 H RBC 3.05 L Hgb 7.2 L Hct 22.9 L MCV 75 L MCH 24 L MCHC RDW 19.0 H Plt Count Lymph % (Auto) [place] % (Auto) Lymph # [place]igg # Baso # Seg Neutrophils % Seg Neuts % (Manual) Lymphocytes % (Manual) Monocytes % (Manual) Eosinophils % (Manual) Basophils % (Manual) Nucleated RBC % Seg Neutrophils # Seg Neutrophils # Man Lymphocytes # (Manual) Monocytes # (Manual) Eosinophils # (Manual) Basophils # (Manual) PT INR Fibrinogen dRVVT Confirm Interp Factor V Activity POC ABG pH POC ABG pCO2 POC ABG pO2 ABG pO2 ABG HCO3 ABG Base Excess ABG Hemoglobin Oxyhemoglobin Sodium Potassium Chloride Carbon Dioxide BUN Creatinine Glucose POC Glucose 266 H 154 H Lactic Acid Calcium Phosphorus Magnesium Direct Bilirubin AST ALT Alkaline Phosphatase Lactate Dehydrogenase Troponin T C-Reactive Protein Total Protein Albumin Prealbumin Triglycerides Cholesterol LDL Cholesterol Direct HDL Cholesterol Urine pH Urine WBC (Auto) Urine Creatinine Urine Total Protein Fluid Total Protein Vancomycin Trough Rheumatoid Factor Complement C4 Miscellaneous Test Crossmatch 09/15/16 09/15/16 09/15/16 05:00 05:17 12:45 WBC RBC Hgb Hct MCV MCH MCHC RDW Plt Count Lymph % (Auto) Trigg % (Auto) Lymph # Trigg # Baso # Seg Neutrophils % Seg Neuts % (Manual) Lymphocytes % (Manual) Monocytes % (Manual) Eosinophils % (Manual) Basophils % (Manual) Nucleated RBC % Seg Neutrophils # Seg Neutrophils # Man Lymphocytes # (Manual) Monocytes # (Manual) Eosinophils # (Manual) Basophils # (Manual) PT INR Fibrinogen dRVVT Confirm Interp Factor V Activity POC ABG pH POC ABG pCO2 POC ABG pO2 ABG pO2 ABG HCO3 ABG Base Excess ABG Hemoglobin Oxyhemoglobin Sodium Potassium 5.2 H Chloride Carbon Dioxide 18 L BUN 139 H Creatinine 3.7 H Glucose 227 H POC Glucose 226 H 244 H Lactic Acid Calcium 8.3 L Phosphorus Magnesium Direct Bilirubin AST ALT Alkaline Phosphatase Lactate Dehydrogenase Troponin T C-Reactive Protein Total Protein Albumin Prealbumin Triglycerides Cholesterol LDL Cholesterol Direct HDL Cholesterol Urine pH Urine WBC (Auto) Urine Creatinine Urine Total Protein Fluid Total Protein Vancomycin Trough Rheumatoid Factor Complement C4 Miscellaneous Test Crossmatch 09/15/16 09/15/16 09/15/16 14:32 17:33 23:35 WBC RBC Hgb Hct MCV MCH MCHC RDW Plt Count Lymph % (Auto) [place] % (Auto) Lymph # Trigg # Baso # Seg Neutrophils % Seg Neuts % (Manual) Lymphocytes % (Manual) Monocytes % (Manual) Eosinophils % (Manual) Basophils % (Manual) Nucleated RBC % Seg Neutrophils # Seg Neutrophils # Man Lymphocytes # (Manual) Monocytes # (Manual) Eosinophils # (Manual) Basophils # (Manual) PT INR Fibrinogen dRVVT Confirm Interp Factor V Activity POC ABG pH POC ABG pCO2 27.7 L POC ABG pO2 120 H ABG pO2 ABG HCO3 ABG Base Excess ABG Hemoglobin Oxyhemoglobin Sodium Potassium Chloride Carbon Dioxide BUN Creatinine Glucose POC Glucose 232 H 167 H Lactic Acid Calcium Phosphorus Magnesium Direct Bilirubin AST ALT Alkaline Phosphatase Lactate Dehydrogenase Troponin T C-Reactive Protein Total Protein Albumin Prealbumin Triglycerides Cholesterol LDL Cholesterol Direct HDL Cholesterol Urine pH Urine WBC (Auto) Urine Creatinine Urine Total Protein Fluid Total Protein Vancomycin Trough Rheumatoid Factor Complement C4 Miscellaneous Test Crossmatch 09/16/16 09/16/16 09/16/16 03:58 10:27 10:27 WBC 19.0 H RBC 2.77 L Hgb 6.5 L Hct 20.9 L MCV 76 L MCH 23 L MCHC RDW 19.3 H Plt Count Lymph % (Auto) 11.0 L [place] % (Auto) Lymph # Trigg # 1.1 H Baso # Seg Neutrophils % 82.5 H Seg Neuts % (Manual) Lymphocytes % (Manual) Monocytes % (Manual) Eosinophils % (Manual) Basophils % (Manual) Nucleated RBC % Seg Neutrophils # 15.7 H Seg Neutrophils # Man Lymphocytes # (Manual) Monocytes # (Manual) Eosinophils # (Manual) Basophils # (Manual) PT INR Fibrinogen dRVVT Confirm Interp Factor V Activity POC ABG pH POC ABG pCO2 POC ABG pO2 ABG pO2 ABG HCO3 ABG Base Excess ABG Hemoglobin Oxyhemoglobin Sodium Potassium Chloride 109.3 H Carbon Dioxide 18 L BUN 139 H Creatinine 4.1 H Glucose 144 H POC Glucose 146 H Lactic Acid Calcium 8.1 L Phosphorus Magnesium Direct Bilirubin AST ALT Alkaline Phosphatase Lactate Dehydrogenase Troponin T C-Reactive Protein Total Protein Albumin Prealbumin Triglycerides Cholesterol LDL Cholesterol Direct HDL Cholesterol Urine pH Urine WBC (Auto) Urine Creatinine Urine Total Protein Fluid Total Protein Vancomycin Trough Rheumatoid Factor Complement C4 Miscellaneous Test Crossmatch 09/16/16 09/16/16 09/16/16 12:04 12:10 13:55 WBC RBC Hgb Hct MCV MCH MCHC RDW Plt Count Lymph % (Auto) [place] % (Auto) Lymph # Trigg # Baso # Seg Neutrophils % Seg Neuts % (Manual) Lymphocytes % (Manual) Monocytes % (Manual) Eosinophils % (Manual) Basophils % (Manual) Nucleated RBC % Seg Neutrophils # Seg Neutrophils # Man Lymphocytes # (Manual) Monocytes # (Manual) Eosinophils # (Manual) Basophils # (Manual) PT INR Fibrinogen dRVVT Confirm Interp Factor V Activity POC ABG pH POC ABG pCO2 32.9 L POC ABG pO2 ABG pO2 ABG HCO3 ABG Base Excess ABG Hemoglobin Oxyhemoglobin Sodium Potassium Chloride Carbon Dioxide BUN Creatinine Glucose POC Glucose 185 H Lactic Acid Calcium Phosphorus Magnesium Direct Bilirubin AST ALT Alkaline Phosphatase Lactate Dehydrogenase Troponin T C-Reactive Protein Total Protein Albumin Prealbumin Triglycerides Cholesterol LDL Cholesterol Direct HDL Cholesterol Urine pH Urine WBC (Auto) Urine Creatinine Urine Total Protein Fluid Total Protein Vancomycin Trough Rheumatoid Factor Complement C4 Miscellaneous Test Crossmatch See Detail 09/16/16 09/16/16 09/16/16 17:55 19:19 23:48 WBC RBC Hgb Hct MCV MCH MCHC RDW Plt Count Lymph % (Auto) [place] % (Auto) Lymph # [place] # Baso # Seg Neutrophils % Seg Neuts % (Manual) Lymphocytes % (Manual) Monocytes % (Manual) Eosinophils % (Manual) Basophils % (Manual) Nucleated RBC % Seg Neutrophils # Seg Neutrophils # Man Lymphocytes # (Manual) Monocytes # (Manual) Eosinophils # (Manual) Basophils # (Manual) PT INR Fibrinogen dRVVT Confirm Interp Factor V Activity POC ABG pH POC ABG pCO2 POC ABG pO2 ABG pO2 ABG HCO3 ABG Base Excess ABG Hemoglobin Oxyhemoglobin Sodium Potassium Chloride Carbon Dioxide BUN Creatinine Glucose POC Glucose 222 H 107 H Lactic Acid Calcium Phosphorus Magnesium Direct Bilirubin AST ALT Alkaline Phosphatase Lactate Dehydrogenase Troponin T C-Reactive Protein Total Protein Albumin Prealbumin Triglycerides Cholesterol LDL Cholesterol Direct HDL Cholesterol Urine pH Urine WBC (Auto) Urine Creatinine 47.4 H Urine Total Protein 16 H Fluid Total Protein Vancomycin Trough Rheumatoid Factor Complement C4 Miscellaneous Test Crossmatch 09/17/16 09/17/16 09/17/16 03:45 03:45 04:55 WBC 19.6 H RBC 3.41 L Hgb 8.5 L Hct 26.7 L MCV 78 L MCH 25 L MCHC RDW 19.9 H Plt Count Lymph % (Auto) 9.3 L [place] % (Auto) Lymph # Trigg # 1.2 H Baso # Seg Neutrophils % 83.9 H Seg Neuts % (Manual) Lymphocytes % (Manual) Monocytes % (Manual) Eosinophils % (Manual) Basophils % (Manual) Nucleated RBC % Seg Neutrophils # 16.4 H Seg Neutrophils # Man Lymphocytes # (Manual) Monocytes # (Manual) Eosinophils # (Manual) Basophils # (Manual) PT INR Fibrinogen dRVVT Confirm Interp Factor V Activity POC ABG pH POC ABG pCO2 POC ABG pO2 ABG pO2 ABG HCO3 ABG Base Excess ABG Hemoglobin Oxyhemoglobin Sodium 146 H Potassium 5.1 H Chloride 110.9 H Carbon Dioxide 16 L BUN 146 H Creatinine 4.0 H Glucose 108 H POC Glucose 133 H Lactic Acid Calcium Phosphorus Magnesium 3.00 H Direct Bilirubin AST ALT Alkaline Phosphatase Lactate Dehydrogenase Troponin T C-Reactive Protein Total Protein Albumin Prealbumin Triglycerides Cholesterol LDL Cholesterol Direct HDL Cholesterol Urine pH Urine WBC (Auto) Urine Creatinine Urine Total Protein Fluid Total Protein Vancomycin Trough Rheumatoid Factor Complement C4 Miscellaneous Test Crossmatch 09/17/16 09/17/16 09/17/16 11:15 17:33 23:47 WBC RBC Hgb Hct MCV MCH MCHC RDW Plt Count Lymph % (Auto) [place] % (Auto) Lymph # [place] # Baso # Seg Neutrophils % Seg Neuts % (Manual) Lymphocytes % (Manual) Monocytes % (Manual) Eosinophils % (Manual) Basophils % (Manual) Nucleated RBC % Seg Neutrophils # Seg Neutrophils # Man Lymphocytes # (Manual) Monocytes # (Manual) Eosinophils # (Manual) Basophils # (Manual) PT INR Fibrinogen dRVVT Confirm Interp Factor V Activity POC ABG pH POC ABG pCO2 POC ABG pO2 ABG pO2 ABG HCO3 ABG Base Excess ABG Hemoglobin Oxyhemoglobin Sodium Potassium Chloride Carbon Dioxide BUN Creatinine Glucose POC Glucose 176 H 246 H 148 H Lactic Acid Calcium Phosphorus Magnesium Direct Bilirubin AST ALT Alkaline Phosphatase Lactate Dehydrogenase Troponin T C-Reactive Protein Total Protein Albumin Prealbumin Triglycerides Cholesterol LDL Cholesterol Direct HDL Cholesterol Urine pH Urine WBC (Auto) Urine Creatinine Urine Total Protein Fluid Total Protein Vancomycin Trough Rheumatoid Factor Complement C4 Miscellaneous Test Crossmatch 09/18/16 09/18/16 09/18/16 05:33 08:31 08:31 WBC 18.0 H RBC 3.17 L Hgb 9.0 L Hct 25.7 L MCV MCH MCHC 35 H RDW 20.4 H Plt Count Lymph % (Auto) [place] % (Auto) Lymph # [place] # Baso # Seg Neutrophils % Seg Neuts % (Manual) Lymphocytes % (Manual) Monocytes % (Manual) Eosinophils % (Manual) Basophils % (Manual) Nucleated RBC % Seg Neutrophils # Seg Neutrophils # Man Lymphocytes # (Manual) Monocytes # (Manual) Eosinophils # (Manual) Basophils # (Manual) PT INR Fibrinogen dRVVT Confirm Interp Factor V Activity POC ABG pH POC ABG pCO2 POC ABG pO2 ABG pO2 ABG HCO3 ABG Base Excess ABG Hemoglobin Oxyhemoglobin Sodium Potassium Chloride Carbon Dioxide 15 L BUN 124 H Creatinine 3.8 H Glucose POC Glucose 120 H Lactic Acid Calcium 8.1 L Phosphorus Magnesium Direct Bilirubin AST ALT Alkaline Phosphatase Lactate Dehydrogenase Troponin T C-Reactive Protein Total Protein Albumin Prealbumin Triglycerides Cholesterol LDL Cholesterol Direct HDL Cholesterol Urine pH Urine WBC (Auto) Urine Creatinine Urine Total Protein Fluid Total Protein Vancomycin Trough Rheumatoid Factor Complement C4 Miscellaneous Test Crossmatch 09/18/16 09/18/16 09/18/16 12:03 15:34 17:50 WBC RBC Hgb Hct MCV MCH MCHC RDW Plt Count Lymph % (Auto) [place] % (Auto) Lymph # Trigg # Baso # Seg Neutrophils % Seg Neuts % (Manual) Lymphocytes % (Manual) Monocytes % (Manual) Eosinophils % (Manual) Basophils % (Manual) Nucleated RBC % Seg Neutrophils # Seg Neutrophils # Man Lymphocytes # (Manual) Monocytes # (Manual) Eosinophils # (Manual) Basophils # (Manual) PT INR Fibrinogen dRVVT Confirm Interp Factor V Activity POC ABG pH POC ABG pCO2 25.7 L POC ABG pO2 66 L ABG pO2 ABG HCO3 ABG Base Excess ABG Hemoglobin Oxyhemoglobin Sodium Potassium Chloride Carbon Dioxide BUN Creatinine Glucose POC Glucose 156 H 220 H Lactic Acid Calcium Phosphorus Magnesium Direct Bilirubin AST ALT Alkaline Phosphatase Lactate Dehydrogenase Troponin T C-Reactive Protein Total Protein Albumin Prealbumin Triglycerides Cholesterol LDL Cholesterol Direct HDL Cholesterol Urine pH Urine WBC (Auto) Urine Creatinine Urine Total Protein Fluid Total Protein Vancomycin Trough Rheumatoid Factor Complement C4 Miscellaneous Test Crossmatch 09/19/16 09/19/16 09/19/16 06:21 09:50 09:50 WBC 17.1 H RBC 3.49 L Hgb 9.0 L Hct 28.1 L MCV MCH 26 L MCHC RDW 20.8 H Plt Count Lymph % (Auto) 11.5 L [place] % (Auto) 7.5 H Lymph # Trigg # 1.3 H Baso # Seg Neutrophils % 79.8 H Seg Neuts % (Manual) Lymphocytes % (Manual) Monocytes % (Manual) Eosinophils % (Manual) Basophils % (Manual) Nucleated RBC % Seg Neutrophils # 13.7 H Seg Neutrophils # Man Lymphocytes # (Manual) Monocytes # (Manual) Eosinophils # (Manual) Basophils # (Manual) PT INR Fibrinogen dRVVT Confirm Interp Factor V Activity POC ABG pH POC ABG pCO2 POC ABG pO2 ABG pO2 ABG HCO3 ABG Base Excess ABG Hemoglobin Oxyhemoglobin Sodium Potassium Chloride 108.6 H Carbon Dioxide 15 L BUN 125 H Creatinine 4.1 H Glucose 124 H POC Glucose 119 H Lactic Acid Calcium Phosphorus Magnesium Direct Bilirubin AST ALT Alkaline Phosphatase Lactate Dehydrogenase Troponin T C-Reactive Protein Total Protein Albumin Prealbumin Triglycerides Cholesterol LDL Cholesterol Direct HDL Cholesterol Urine pH Urine WBC (Auto) Urine Creatinine Urine Total Protein Fluid Total Protein Vancomycin Trough Rheumatoid Factor Complement C4 Miscellaneous Test Crossmatch 09/19/16 09/19/16 09/19/16 11:25 17:53 23:36 WBC RBC Hgb Hct MCV MCH MCHC RDW Plt Count Lymph % (Auto) [place] % (Auto) Lymph # [place] # Baso # Seg Neutrophils % Seg Neuts % (Manual) Lymphocytes % (Manual) Monocytes % (Manual) Eosinophils % (Manual) Basophils % (Manual) Nucleated RBC % Seg Neutrophils # Seg Neutrophils # Man Lymphocytes # (Manual) Monocytes # (Manual) Eosinophils # (Manual) Basophils # (Manual) PT INR Fibrinogen dRVVT Confirm Interp Factor V Activity POC ABG pH POC ABG pCO2 POC ABG pO2 ABG pO2 ABG HCO3 ABG Base Excess ABG Hemoglobin Oxyhemoglobin Sodium Potassium Chloride Carbon Dioxide BUN Creatinine Glucose POC Glucose 160 H 245 H 121 H Lactic Acid Calcium Phosphorus Magnesium Direct Bilirubin AST ALT Alkaline Phosphatase Lactate Dehydrogenase Troponin T C-Reactive Protein Total Protein Albumin Prealbumin Triglycerides Cholesterol LDL Cholesterol Direct HDL Cholesterol Urine pH Urine WBC (Auto) Urine Creatinine Urine Total Protein Fluid Total Protein Vancomycin Trough Rheumatoid Factor Complement C4 Miscellaneous Test Crossmatch 09/20/16 09/20/16 09/20/16 04:10 04:10 04:10 WBC 17.0 H RBC 3.21 L Hgb 8.2 L Hct 25.5 L MCV MCH 26 L MCHC RDW 20.9 H Plt Count Lymph % (Auto) [place] % (Auto) Lymph # [place] # Baso # Seg Neutrophils % Seg Neuts % (Manual) Lymphocytes % (Manual) Monocytes % (Manual) Eosinophils % (Manual) Basophils % (Manual) Nucleated RBC % Seg Neutrophils # Seg Neutrophils # Man Lymphocytes # (Manual) Monocytes # (Manual) Eosinophils # (Manual) Basophils # (Manual) PT INR Fibrinogen dRVVT Confirm Interp Factor V Activity POC ABG pH POC ABG pCO2 POC ABG pO2 ABG pO2 ABG HCO3 ABG Base Excess ABG Hemoglobin Oxyhemoglobin Sodium Potassium Chloride 111.0 H Carbon Dioxide 16 L BUN 129 H Creatinine 3.7 H Glucose 115 H POC Glucose Lactic Acid Calcium 8.2 L Phosphorus Magnesium Direct Bilirubin AST ALT Alkaline Phosphatase Lactate Dehydrogenase Troponin T C-Reactive Protein Total Protein Albumin Prealbumin Triglycerides 243 H Cholesterol LDL Cholesterol Direct HDL Cholesterol Urine pH Urine WBC (Auto) Urine Creatinine Urine Total Protein Fluid Total Protein Vancomycin Trough Rheumatoid Factor Complement C4 Miscellaneous Test Crossmatch 09/20/16 09/20/16 09/20/16 05:40 11:52 16:50 WBC RBC Hgb Hct MCV MCH MCHC RDW Plt Count Lymph % (Auto) [place] % (Auto) Lymph # [place]igg # Baso # Seg Neutrophils % Seg Neuts % (Manual) Lymphocytes % (Manual) Monocytes % (Manual) Eosinophils % (Manual) Basophils % (Manual) Nucleated RBC % Seg Neutrophils # Seg Neutrophils # Man Lymphocytes # (Manual) Monocytes # (Manual) Eosinophils # (Manual) Basophils # (Manual) PT INR Fibrinogen dRVVT Confirm Interp Factor V Activity POC ABG pH POC ABG pCO2 POC ABG pO2 ABG pO2 ABG HCO3 ABG Base Excess ABG Hemoglobin Oxyhemoglobin Sodium Potassium Chloride Carbon Dioxide BUN Creatinine Glucose POC Glucose 131 H 183 H 236 H Lactic Acid Calcium Phosphorus Magnesium Direct Bilirubin AST ALT Alkaline Phosphatase Lactate Dehydrogenase Troponin T C-Reactive Protein Total Protein Albumin Prealbumin Triglycerides Cholesterol LDL Cholesterol Direct HDL Cholesterol Urine pH Urine WBC (Auto) Urine Creatinine Urine Total Protein Fluid Total Protein Vancomycin Trough Rheumatoid Factor Complement C4 Miscellaneous Test Crossmatch 09/20/16 09/21/16 09/21/16 23:51 03:30 04:44 WBC RBC Hgb Hct MCV MCH MCHC RDW Plt Count Lymph % (Auto) [place] % (Auto) Lymph # [place] # Baso # Seg Neutrophils % Seg Neuts % (Manual) Lymphocytes % (Manual) Monocytes % (Manual) Eosinophils % (Manual) Basophils % (Manual) Nucleated RBC % Seg Neutrophils # Seg Neutrophils # Man Lymphocytes # (Manual) Monocytes # (Manual) Eosinophils # (Manual) Basophils # (Manual) PT INR Fibrinogen dRVVT Confirm Interp Factor V Activity POC ABG pH POC ABG pCO2 POC ABG pO2 ABG pO2 ABG HCO3 ABG Base Excess ABG Hemoglobin Oxyhemoglobin Sodium Potassium Chloride Carbon Dioxide BUN Creatinine Glucose POC Glucose 114 H 141 H Lactic Acid Calcium Phosphorus Magnesium 2.70 H Direct Bilirubin AST ALT Alkaline Phosphatase Lactate Dehydrogenase Troponin T C-Reactive Protein Total Protein Albumin Prealbumin Triglycerides Cholesterol LDL Cholesterol Direct HDL Cholesterol Urine pH Urine WBC (Auto) Urine Creatinine Urine Total Protein Fluid Total Protein Vancomycin Trough Rheumatoid Factor Complement C4 Miscellaneous Test Crossmatch 09/21/16 09/21/16 09/21/16 07:45 07:45 10:01 WBC 13.8 H RBC 2.94 L Hgb 7.5 L Hct 23.5 L MCV MCH 26 L MCHC RDW 21.2 H Plt Count Lymph % (Auto) 6.9 L [place] % (Auto) 9.4 H Lymph # 0.9 L Trigg # 1.3 H Baso # Seg Neutrophils % 83.2 H Seg Neuts % (Manual) Lymphocytes % (Manual) Monocytes % (Manual) Eosinophils % (Manual) Basophils % (Manual) Nucleated RBC % Seg Neutrophils # 11.5 H Seg Neutrophils # Man Lymphocytes # (Manual) Monocytes # (Manual) Eosinophils # (Manual) Basophils # (Manual) PT INR Fibrinogen dRVVT Confirm Interp Factor V Activity POC ABG pH 7.308 L POC ABG pCO2 31.9 L POC ABG pO2 148 H ABG pO2 ABG HCO3 ABG Base Excess ABG Hemoglobin Oxyhemoglobin Sodium 147 H Potassium Chloride 114.2 H Carbon Dioxide 15 L BUN 120 H Creatinine 3.9 H Glucose 156 H POC Glucose Lactic Acid Calcium 8.2 L Phosphorus Magnesium Direct Bilirubin AST ALT Alkaline Phosphatase Lactate Dehydrogenase Troponin T C-Reactive Protein Total Protein Albumin Prealbumin Triglycerides Cholesterol LDL Cholesterol Direct HDL Cholesterol Urine pH Urine WBC (Auto) Urine Creatinine Urine Total Protein Fluid Total Protein Vancomycin Trough Rheumatoid Factor Complement C4 Miscellaneous Test Crossmatch 09/21/16 09/21/16 09/21/16 12:00 12:03 13:00 WBC RBC Hgb Hct MCV MCH MCHC RDW Plt Count Lymph % (Auto) [place] % (Auto) Lymph # [place] # Baso # Seg Neutrophils % Seg Neuts % (Manual) Lymphocytes % (Manual) Monocytes % (Manual) Eosinophils % (Manual) Basophils % (Manual) Nucleated RBC % Seg Neutrophils # Seg Neutrophils # Man Lymphocytes # (Manual) Monocytes # (Manual) Eosinophils # (Manual) Basophils # (Manual) PT INR Fibrinogen dRVVT Confirm Interp Factor V Activity POC ABG pH POC ABG pCO2 POC ABG pO2 ABG pO2 ABG HCO3 ABG Base Excess ABG Hemoglobin Oxyhemoglobin Sodium Potassium Chloride Carbon Dioxide BUN Creatinine Glucose POC Glucose 163 H Lactic Acid Calcium Phosphorus Magnesium Direct Bilirubin AST ALT Alkaline Phosphatase Lactate Dehydrogenase Troponin T C-Reactive Protein Total Protein Albumin Prealbumin Triglycerides Cholesterol LDL Cholesterol Direct HDL Cholesterol Urine pH Urine WBC (Auto) Urine Creatinine 54.8 H Urine Total Protein Fluid Total Protein Vancomycin Trough 2.3 L Rheumatoid Factor Complement C4 Miscellaneous Test Crossmatch 09/21/16 09/21/16 09/22/16 16:51 23:17 06:27 WBC RBC Hgb Hct MCV MCH MCHC RDW Plt Count Lymph % (Auto) [place] % (Auto) Lymph # [place] # Baso # Seg Neutrophils % Seg Neuts % (Manual) Lymphocytes % (Manual) Monocytes % (Manual) Eosinophils % (Manual) Basophils % (Manual) Nucleated RBC % Seg Neutrophils # Seg Neutrophils # Man Lymphocytes # (Manual) Monocytes # (Manual) Eosinophils # (Manual) Basophils # (Manual) PT INR Fibrinogen dRVVT Confirm Interp Factor V Activity POC ABG pH POC ABG pCO2 POC ABG pO2 ABG pO2 ABG HCO3 ABG Base Excess ABG Hemoglobin Oxyhemoglobin Sodium Potassium Chloride Carbon Dioxide BUN Creatinine Glucose POC Glucose 206 H 114 H 115 H Lactic Acid Calcium Phosphorus Magnesium Direct Bilirubin AST ALT Alkaline Phosphatase Lactate Dehydrogenase Troponin T C-Reactive Protein Total Protein Albumin Prealbumin Triglycerides Cholesterol LDL Cholesterol Direct HDL Cholesterol Urine pH Urine WBC (Auto) Urine Creatinine Urine Total Protein Fluid Total Protein Vancomycin Trough Rheumatoid Factor Complement C4 Miscellaneous Test Crossmatch 09/22/16 09/22/16 09/22/16 07:50 07:50 12:00 WBC 17.8 H RBC 3.04 L Hgb 8.0 L Hct 24.7 L MCV MCH 26 L MCHC RDW 21.6 H Plt Count Lymph % (Auto) [place] % (Auto) Lymph # [place] # Baso # Seg Neutrophils % Seg Neuts % (Manual) Lymphocytes % (Manual) Monocytes % (Manual) Eosinophils % (Manual) Basophils % (Manual) Nucleated RBC % Seg Neutrophils # Seg Neutrophils # Man Lymphocytes # (Manual) Monocytes # (Manual) Eosinophils # (Manual) Basophils # (Manual) PT INR Fibrinogen dRVVT Confirm Interp Factor V Activity POC ABG pH POC ABG pCO2 POC ABG pO2 ABG pO2 ABG HCO3 ABG Base Excess ABG Hemoglobin Oxyhemoglobin Sodium 150 H Potassium Chloride 118.2 H Carbon Dioxide 14 L BUN 111 H Creatinine 3.7 H Glucose 157 H POC Glucose 183 H Lactic Acid Calcium Phosphorus Magnesium Direct Bilirubin AST ALT Alkaline Phosphatase Lactate Dehydrogenase Troponin T C-Reactive Protein Total Protein Albumin Prealbumin Triglycerides Cholesterol LDL Cholesterol Direct HDL Cholesterol Urine pH Urine WBC (Auto) Urine Creatinine Urine Total Protein Fluid Total Protein Vancomycin Trough Rheumatoid Factor Complement C4 Miscellaneous Test Crossmatch 09/22/16 09/22/16 09/23/16 17:29 23:10 05:00 WBC 19.2 H RBC 3.13 L Hgb 8.0 L Hct 25.2 L MCV MCH 26 L MCHC RDW 22.1 H Plt Count Lymph % (Auto) [place] % (Auto) Lymph # [place] # Baso # Seg Neutrophils % Seg Neuts % (Manual) 92.0 H Lymphocytes % (Manual) 3.0 L Monocytes % (Manual) Eosinophils % (Manual) Basophils % (Manual) Nucleated RBC % Seg Neutrophils # Seg Neutrophils # Man 17.7 H Lymphocytes # (Manual) 0.6 L Monocytes # (Manual) Eosinophils # (Manual) Basophils # (Manual) PT INR Fibrinogen dRVVT Confirm Interp Factor V Activity POC ABG pH POC ABG pCO2 POC ABG pO2 ABG pO2 ABG HCO3 ABG Base Excess ABG Hemoglobin Oxyhemoglobin Sodium Potassium Chloride Carbon Dioxide BUN Creatinine Glucose POC Glucose 197 H 169 H Lactic Acid Calcium Phosphorus Magnesium Direct Bilirubin AST ALT Alkaline Phosphatase Lactate Dehydrogenase Troponin T C-Reactive Protein Total Protein Albumin Prealbumin Triglycerides Cholesterol LDL Cholesterol Direct HDL Cholesterol Urine pH Urine WBC (Auto) Urine Creatinine Urine Total Protein Fluid Total Protein Vancomycin Trough Rheumatoid Factor Complement C4 Miscellaneous Test Crossmatch 09/23/16 09/23/16 09/23/16 05:00 05:00 05:10 WBC RBC Hgb Hct MCV MCH MCHC RDW Plt Count Lymph % (Auto) [place] % (Auto) Lymph # [place] # Baso # Seg Neutrophils % Seg Neuts % (Manual) Lymphocytes % (Manual) Monocytes % (Manual) Eosinophils % (Manual) Basophils % (Manual) Nucleated RBC % Seg Neutrophils # Seg Neutrophils # Man Lymphocytes # (Manual) Monocytes # (Manual) Eosinophils # (Manual) Basophils # (Manual) PT INR Fibrinogen dRVVT Confirm Interp Factor V Activity POC ABG pH POC ABG pCO2 POC ABG pO2 ABG pO2 ABG HCO3 ABG Base Excess ABG Hemoglobin Oxyhemoglobin Sodium 147 H Potassium 3.2 L Chloride 115.7 H Carbon Dioxide 13 L BUN 111 H Creatinine 3.8 H Glucose 194 H POC Glucose 188 H Lactic Acid Calcium 7.3 L D Phosphorus Magnesium Direct Bilirubin AST ALT Alkaline Phosphatase Lactate Dehydrogenase Troponin T C-Reactive Protein 3.20 H Total Protein Albumin Prealbumin Triglycerides Cholesterol LDL Cholesterol Direct HDL Cholesterol Urine pH Urine WBC (Auto) Urine Creatinine Urine Total Protein Fluid Total Protein Vancomycin Trough Rheumatoid Factor Complement C4 Miscellaneous Test Crossmatch 09/23/16 09/23/16 09/23/16 11:37 12:29 18:01 WBC RBC Hgb Hct MCV MCH MCHC RDW Plt Count Lymph % (Auto) [place] % (Auto) Lymph # [place] # Baso # Seg Neutrophils % Seg Neuts % (Manual) Lymphocytes % (Manual) Monocytes % (Manual) Eosinophils % (Manual) Basophils % (Manual) Nucleated RBC % Seg Neutrophils # Seg Neutrophils # Man Lymphocytes # (Manual) Monocytes # (Manual) Eosinophils # (Manual) Basophils # (Manual) PT INR Fibrinogen dRVVT Confirm Interp Factor V Activity POC ABG pH POC ABG pCO2 18.9 L POC ABG pO2 143 H ABG pO2 ABG HCO3 ABG Base Excess ABG Hemoglobin Oxyhemoglobin Sodium Potassium Chloride Carbon Dioxide BUN Creatinine Glucose POC Glucose 153 H 108 H Lactic Acid Calcium Phosphorus Magnesium Direct Bilirubin AST ALT Alkaline Phosphatase Lactate Dehydrogenase Troponin T C-Reactive Protein Total Protein Albumin Prealbumin Triglycerides Cholesterol LDL Cholesterol Direct HDL Cholesterol Urine pH Urine WBC (Auto) Urine Creatinine Urine Total Protein Fluid Total Protein Vancomycin Trough Rheumatoid Factor Complement C4 Miscellaneous Test Crossmatch 09/23/16 09/23/16 09/24/16 21:19 23:43 05:16 WBC RBC Hgb Hct MCV MCH MCHC RDW Plt Count Lymph % (Auto) [place] % (Auto) Lymph # [place] # Baso # Seg Neutrophils % Seg Neuts % (Manual) Lymphocytes % (Manual) Monocytes % (Manual) Eosinophils % (Manual) Basophils % (Manual) Nucleated RBC % Seg Neutrophils # Seg Neutrophils # Man Lymphocytes # (Manual) Monocytes # (Manual) Eosinophils # (Manual) Basophils # (Manual) PT INR Fibrinogen dRVVT Confirm Interp Factor V Activity POC ABG pH POC ABG pCO2 17.3 L POC ABG pO2 112 H ABG pO2 ABG HCO3 ABG Base Excess ABG Hemoglobin Oxyhemoglobin Sodium Potassium Chloride Carbon Dioxide BUN Creatinine Glucose POC Glucose 143 H 164 H Lactic Acid Calcium Phosphorus Magnesium Direct Bilirubin AST ALT Alkaline Phosphatase Lactate Dehydrogenase Troponin T C-Reactive Protein Total Protein Albumin Prealbumin Triglycerides Cholesterol LDL Cholesterol Direct HDL Cholesterol Urine pH Urine WBC (Auto) Urine Creatinine Urine Total Protein Fluid Total Protein Vancomycin Trough Rheumatoid Factor Complement C4 Miscellaneous Test Crossmatch 09/24/16 09/24/16 09/24/16 05:21 11:58 17:06 WBC RBC Hgb Hct MCV MCH MCHC RDW Plt Count Lymph % (Auto) [place] % (Auto) Lymph # Trigg # Baso # Seg Neutrophils % Seg Neuts % (Manual) Lymphocytes % (Manual) Monocytes % (Manual) Eosinophils % (Manual) Basophils % (Manual) Nucleated RBC % Seg Neutrophils # Seg Neutrophils # Man Lymphocytes # (Manual) Monocytes # (Manual) Eosinophils # (Manual) Basophils # (Manual) PT INR Fibrinogen dRVVT Confirm Interp Factor V Activity POC ABG pH POC ABG pCO2 POC ABG pO2 ABG pO2 ABG HCO3 ABG Base Excess ABG Hemoglobin Oxyhemoglobin Sodium Potassium Chloride Carbon Dioxide 10 L BUN 103 H Creatinine 4.3 H Glucose 163 H POC Glucose 173 H 167 H Lactic Acid Calcium 6.5 L Phosphorus Magnesium Direct Bilirubin AST ALT Alkaline Phosphatase Lactate Dehydrogenase Troponin T C-Reactive Protein Total Protein Albumin Prealbumin Triglycerides Cholesterol LDL Cholesterol Direct HDL Cholesterol Urine pH Urine WBC (Auto) Urine Creatinine Urine Total Protein Fluid Total Protein Vancomycin Trough Rheumatoid Factor Complement C4 Miscellaneous Test Crossmatch 09/24/16 09/24/16 09/24/16 20:15 21:02 23:48 WBC RBC Hgb Hct MCV MCH MCHC RDW Plt Count Lymph % (Auto) [place] % (Auto) Lymph # [place] # Baso # Seg Neutrophils % Seg Neuts % (Manual) Lymphocytes % (Manual) Monocytes % (Manual) Eosinophils % (Manual) Basophils % (Manual) Nucleated RBC % Seg Neutrophils # Seg Neutrophils # Man Lymphocytes # (Manual) Monocytes # (Manual) Eosinophils # (Manual) Basophils # (Manual) PT INR Fibrinogen dRVVT Confirm Interp Factor V Activity POC ABG pH 7.288 L POC ABG pCO2 30.2 L 21.5 L POC ABG pO2 32 L 39 L ABG pO2 ABG HCO3 ABG Base Excess ABG Hemoglobin Oxyhemoglobin Sodium Potassium Chloride Carbon Dioxide BUN Creatinine Glucose POC Glucose 109 H Lactic Acid Calcium Phosphorus Magnesium Direct Bilirubin AST ALT Alkaline Phosphatase Lactate Dehydrogenase Troponin T C-Reactive Protein Total Protein Albumin Prealbumin Triglycerides Cholesterol LDL Cholesterol Direct HDL Cholesterol Urine pH Urine WBC (Auto) Urine Creatinine Urine Total Protein Fluid Total Protein Vancomycin Trough Rheumatoid Factor Complement C4 Miscellaneous Test Crossmatch 09/25/16 09/25/16 09/25/16 04:20 04:20 04:20 WBC RBC 2.58 L Hgb 7.0 L Hct 21.0 L MCV MCH 27 L MCHC RDW 23.8 H Plt Count Lymph % (Auto) [place] % (Auto) Lymph # [place] # Baso # Seg Neutrophils % Seg Neuts % (Manual) Lymphocytes % (Manual) 12.0 L Monocytes % (Manual) Eosinophils % (Manual) 7.0 H Basophils % (Manual) 2.0 H Nucleated RBC % Seg Neutrophils # Seg Neutrophils # Man Lymphocytes # (Manual) 0.9 L Monocytes # (Manual) Eosinophils # (Manual) 0.5 H Basophils # (Manual) PT INR Fibrinogen dRVVT Confirm Interp Factor V Activity POC ABG pH POC ABG pCO2 POC ABG pO2 ABG pO2 ABG HCO3 ABG Base Excess ABG Hemoglobin Oxyhemoglobin Sodium Potassium Chloride Carbon Dioxide 15 L BUN 72 H Creatinine 3.8 H Glucose POC Glucose Lactic Acid Calcium 6.0 L Phosphorus 4.60 H Magnesium 1.60 L Direct Bilirubin AST ALT Alkaline Phosphatase Lactate Dehydrogenase Troponin T C-Reactive Protein Total Protein Albumin Prealbumin Triglycerides Cholesterol LDL Cholesterol Direct HDL Cholesterol Urine pH Urine WBC (Auto) Urine Creatinine Urine Total Protein Fluid Total Protein Vancomycin Trough Rheumatoid Factor Complement C4 Miscellaneous Test Crossmatch 09/25/16 09/25/16 09/25/16 04:57 08:02 10:30 WBC RBC Hgb Hct MCV MCH MCHC RDW Plt Count Lymph % (Auto) [place] % (Auto) Lymph # [place] # Baso # Seg Neutrophils % Seg Neuts % (Manual) Lymphocytes % (Manual) Monocytes % (Manual) Eosinophils % (Manual) Basophils % (Manual) Nucleated RBC % Seg Neutrophils # Seg Neutrophils # Man Lymphocytes # (Manual) Monocytes # (Manual) Eosinophils # (Manual) Basophils # (Manual) PT INR Fibrinogen dRVVT Confirm Interp Factor V Activity POC ABG pH POC ABG pCO2 24.7 L POC ABG pO2 152 H ABG pO2 ABG HCO3 ABG Base Excess ABG Hemoglobin Oxyhemoglobin Sodium Potassium Chloride Carbon Dioxide BUN Creatinine Glucose POC Glucose 113 H Lactic Acid Calcium Phosphorus Magnesium Direct Bilirubin AST ALT Alkaline Phosphatase Lactate Dehydrogenase Troponin T C-Reactive Protein Total Protein Albumin Prealbumin Triglycerides Cholesterol LDL Cholesterol Direct HDL Cholesterol Urine pH Urine WBC (Auto) Urine Creatinine Urine Total Protein Fluid Total Protein Vancomycin Trough Rheumatoid Factor Complement C4 Miscellaneous Test Crossmatch See Detail 09/25/16 09/25/16 09/25/16 12:05 17:44 23:47 WBC RBC Hgb Hct MCV MCH MCHC RDW Plt Count Lymph % (Auto) [place] % (Auto) Lymph # [place] # Baso # Seg Neutrophils % Seg Neuts % (Manual) Lymphocytes % (Manual) Monocytes % (Manual) Eosinophils % (Manual) Basophils % (Manual) Nucleated RBC % Seg Neutrophils # Seg Neutrophils # Man Lymphocytes # (Manual) Monocytes # (Manual) Eosinophils # (Manual) Basophils # (Manual) PT INR Fibrinogen dRVVT Confirm Interp Factor V Activity POC ABG pH POC ABG pCO2 POC ABG pO2 ABG pO2 ABG HCO3 ABG Base Excess ABG Hemoglobin Oxyhemoglobin Sodium Potassium Chloride Carbon Dioxide BUN Creatinine Glucose POC Glucose 117 H 119 H 150 H Lactic Acid Calcium Phosphorus Magnesium Direct Bilirubin AST ALT Alkaline Phosphatase Lactate Dehydrogenase Troponin T C-Reactive Protein Total Protein Albumin Prealbumin Triglycerides Cholesterol LDL Cholesterol Direct HDL Cholesterol Urine pH Urine WBC (Auto) Urine Creatinine Urine Total Protein Fluid Total Protein Vancomycin Trough Rheumatoid Factor Complement C4 Miscellaneous Test Crossmatch 09/26/16 09/26/16 09/26/16 04:25 04:25 04:25 WBC RBC 2.65 L Hgb 7.4 L Hct 21.6 L MCV MCH MCHC RDW 22.5 H Plt Count Lymph % (Auto) [place] % (Auto) Lymph # [place] # Baso # Seg Neutrophils % Seg Neuts % (Manual) Lymphocytes % (Manual) 6.0 L Monocytes % (Manual) Eosinophils % (Manual) 11.0 H Basophils % (Manual) Nucleated RBC % Seg Neutrophils # Seg Neutrophils # Man Lymphocytes # (Manual) 0.4 L Monocytes # (Manual) Eosinophils # (Manual) 0.6 H Basophils # (Manual) PT INR Fibrinogen dRVVT Confirm Interp Factor V Activity POC ABG pH POC ABG pCO2 POC ABG pO2 ABG pO2 ABG HCO3 ABG Base Excess ABG Hemoglobin Oxyhemoglobin Sodium Potassium Chloride 97.0 L Carbon Dioxide 19 L BUN 43 H Creatinine 2.6 H Glucose 130 H POC Glucose Lactic Acid 4.40 H* Calcium 6.7 L Phosphorus Magnesium Direct Bilirubin AST ALT Alkaline Phosphatase Lactate Dehydrogenase Troponin T C-Reactive Protein Total Protein Albumin Prealbumin Triglycerides Cholesterol LDL Cholesterol Direct HDL Cholesterol Urine pH Urine WBC (Auto) Urine Creatinine Urine Total Protein Fluid Total Protein Vancomycin Trough Rheumatoid Factor Complement C4 Miscellaneous Test Crossmatch 09/26/16 09/26/16 09/26/16 05:20 11:44 12:12 WBC RBC Hgb Hct MCV MCH MCHC RDW Plt Count Lymph % (Auto) [place] % (Auto) Lymph # [place] # Baso # Seg Neutrophils % Seg Neuts % (Manual) Lymphocytes % (Manual) Monocytes % (Manual) Eosinophils % (Manual) Basophils % (Manual) Nucleated RBC % Seg Neutrophils # Seg Neutrophils # Man Lymphocytes # (Manual) Monocytes # (Manual) Eosinophils # (Manual) Basophils # (Manual) PT INR Fibrinogen dRVVT Confirm Interp Factor V Activity POC ABG pH POC ABG pCO2 27.0 L POC ABG pO2 69 L ABG pO2 ABG HCO3 ABG Base Excess ABG Hemoglobin Oxyhemoglobin Sodium Potassium Chloride Carbon Dioxide BUN Creatinine Glucose POC Glucose 121 H 128 H Lactic Acid Calcium Phosphorus Magnesium Direct Bilirubin AST ALT Alkaline Phosphatase Lactate Dehydrogenase Troponin T C-Reactive Protein Total Protein Albumin Prealbumin Triglycerides Cholesterol LDL Cholesterol Direct HDL Cholesterol Urine pH Urine WBC (Auto) Urine Creatinine Urine Total Protein Fluid Total Protein Vancomycin Trough Rheumatoid Factor Complement C4 Miscellaneous Test Crossmatch 09/26/16 09/26/16 09/27/16 18:31 23:40 08:20 WBC RBC Hgb Hct MCV MCH MCHC RDW Plt Count Lymph % (Auto) [place] % (Auto) Lymph # [place] # Baso # Seg Neutrophils % Seg Neuts % (Manual) Lymphocytes % (Manual) Monocytes % (Manual) Eosinophils % (Manual) Basophils % (Manual) Nucleated RBC % Seg Neutrophils # Seg Neutrophils # Man Lymphocytes # (Manual) Monocytes # (Manual) Eosinophils # (Manual) Basophils # (Manual) PT INR Fibrinogen dRVVT Confirm Interp Factor V Activity POC ABG pH POC ABG pCO2 POC ABG pO2 ABG pO2 ABG HCO3 ABG Base Excess ABG Hemoglobin Oxyhemoglobin Sodium Potassium Chloride Carbon Dioxide BUN Creatinine Glucose POC Glucose 120 H 133 H Lactic Acid 4.10 H* Calcium Phosphorus Magnesium Direct Bilirubin AST ALT Alkaline Phosphatase Lactate Dehydrogenase Troponin T C-Reactive Protein Total Protein Albumin Prealbumin Triglycerides Cholesterol LDL Cholesterol Direct HDL Cholesterol Urine pH Urine WBC (Auto) Urine Creatinine Urine Total Protein Fluid Total Protein Vancomycin Trough Rheumatoid Factor Complement C4 Miscellaneous Test Crossmatch 09/27/16 09/27/16 09/27/16 11:23 15:00 18:15 WBC RBC Hgb Hct MCV MCH MCHC RDW Plt Count Lymph % (Auto) [place] % (Auto) Lymph # [place] # Baso # Seg Neutrophils % Seg Neuts % (Manual) Lymphocytes % (Manual) Monocytes % (Manual) Eosinophils % (Manual) Basophils % (Manual) Nucleated RBC % Seg Neutrophils # Seg Neutrophils # Man Lymphocytes # (Manual) Monocytes # (Manual) Eosinophils # (Manual) Basophils # (Manual) PT INR Fibrinogen dRVVT Confirm Interp Factor V Activity POC ABG pH 7.459 H POC ABG pCO2 27.1 L POC ABG pO2 140 H ABG pO2 ABG HCO3 ABG Base Excess ABG Hemoglobin Oxyhemoglobin Sodium Potassium Chloride Carbon Dioxide BUN Creatinine Glucose POC Glucose 114 H 127 H Lactic Acid Calcium Phosphorus Magnesium Direct Bilirubin AST ALT Alkaline Phosphatase Lactate Dehydrogenase Troponin T C-Reactive Protein Total Protein Albumin Prealbumin Triglycerides Cholesterol LDL Cholesterol Direct HDL Cholesterol Urine pH Urine WBC (Auto) Urine Creatinine Urine Total Protein Fluid Total Protein Vancomycin Trough Rheumatoid Factor Complement C4 Miscellaneous Test Crossmatch 09/27/16 09/27/16 09/28/16 Unknown Unknown 03:45 WBC RBC 2.49 L Hgb 6.8 L Hct 20.7 L MCV MCH 27 L MCHC RDW 22.1 H Plt Count Lymph % (Auto) [place] % (Auto) Lymph # [place] # Baso # Seg Neutrophils % Seg Neuts % (Manual) 32.0 L Lymphocytes % (Manual) 12.0 L Monocytes % (Manual) 11.0 H Eosinophils % (Manual) 10.0 H Basophils % (Manual) Nucleated RBC % Seg Neutrophils # Seg Neutrophils # Man Lymphocytes # (Manual) 1.0 L Monocytes # (Manual) 0.9 H Eosinophils # (Manual) 0.8 H Basophils # (Manual) PT INR Fibrinogen dRVVT Confirm Interp Factor V Activity POC ABG pH POC ABG pCO2 POC ABG pO2 ABG pO2 ABG HCO3 ABG Base Excess ABG Hemoglobin Oxyhemoglobin Sodium 135 L 135 L Potassium 3.5 L Chloride 93.6 L 94.4 L Carbon Dioxide 17 L 21 L BUN 45 H 28 H Creatinine 3.3 H 2.5 H Glucose 106 H POC Glucose Lactic Acid Calcium 7.3 L 7.1 L Phosphorus Magnesium Direct Bilirubin AST ALT Alkaline Phosphatase Lactate Dehydrogenase Troponin T C-Reactive Protein Total Protein Albumin Prealbumin Triglycerides Cholesterol LDL Cholesterol Direct HDL Cholesterol Urine pH Urine WBC (Auto) Urine Creatinine Urine Total Protein Fluid Total Protein Vancomycin Trough Rheumatoid Factor Complement C4 Miscellaneous Test Crossmatch 09/28/16 09/28/16 09/28/16 03:45 07:25 11:58 WBC 13.3 H RBC 3.01 L Hgb 8.4 L Hct 25.0 L MCV MCH MCHC RDW 20.5 H Plt Count 128 L Lymph % (Auto) [place] % (Auto) Lymph # [place] # Baso # Seg Neutrophils % Seg Neuts % (Manual) Lymphocytes % (Manual) 7.0 L Monocytes % (Manual) Eosinophils % (Manual) 6.0 H Basophils % (Manual) Nucleated RBC % Seg Neutrophils # Seg Neutrophils # Man Lymphocytes # (Manual) 0.9 L Monocytes # (Manual) Eosinophils # (Manual) 0.8 H Basophils # (Manual) PT INR Fibrinogen dRVVT Confirm Interp Factor V Activity POC ABG pH POC ABG pCO2 POC ABG pO2 ABG pO2 ABG HCO3 ABG Base Excess ABG Hemoglobin Oxyhemoglobin Sodium Potassium Chloride Carbon Dioxide BUN Creatinine Glucose POC Glucose 121 H Lactic Acid 4.50 H* Calcium Phosphorus Magnesium Direct Bilirubin AST ALT Alkaline Phosphatase Lactate Dehydrogenase Troponin T C-Reactive Protein Total Protein Albumin Prealbumin Triglycerides Cholesterol LDL Cholesterol Direct HDL Cholesterol Urine pH Urine WBC (Auto) Urine Creatinine Urine Total Protein Fluid Total Protein Vancomycin Trough Rheumatoid Factor Complement C4 Miscellaneous Test Crossmatch 09/29/16 09/29/16 09/29/16 06:45 06:45 06:45 WBC 14.9 H RBC 2.74 L Hgb 7.6 L Hct 23.2 L MCV MCH MCHC RDW 20.5 H Plt Count 81 L Lymph % (Auto) [place] % (Auto) Lymph # [place] # Baso # Seg Neutrophils % Seg Neuts % (Manual) 81.0 H Lymphocytes % (Manual) 4.0 L Monocytes % (Manual) Eosinophils % (Manual) Basophils % (Manual) Nucleated RBC % Seg Neutrophils # Seg Neutrophils # Man 12.1 H Lymphocytes # (Manual) 0.6 L Monocytes # (Manual) Eosinophils # (Manual) Basophils # (Manual) PT INR Fibrinogen dRVVT Confirm Interp Factor V Activity POC ABG pH POC ABG pCO2 POC ABG pO2 ABG pO2 ABG HCO3 ABG Base Excess ABG Hemoglobin Oxyhemoglobin Sodium 133 L Potassium 3.4 L Chloride 92.5 L Carbon Dioxide 21 L BUN 33 H Creatinine 3.0 H Glucose POC Glucose Lactic Acid Calcium 6.6 L Phosphorus Magnesium 1.40 L Direct Bilirubin 0.9 H AST ALT Alkaline Phosphatase Lactate Dehydrogenase Troponin T C-Reactive Protein Total Protein 4.3 L Albumin 1.3 L Prealbumin Triglycerides Cholesterol LDL Cholesterol Direct HDL Cholesterol Urine pH Urine WBC (Auto) Urine Creatinine Urine Total Protein Fluid Total Protein Vancomycin Trough Rheumatoid Factor Complement C4 Miscellaneous Test Crossmatch 09/29/16 09/29/16 09/30/16 17:52 20:12 00:07 WBC RBC Hgb Hct MCV MCH MCHC RDW Plt Count Lymph % (Auto) [place] % (Auto) Lymph # [place] # Baso # Seg Neutrophils % Seg Neuts % (Manual) Lymphocytes % (Manual) Monocytes % (Manual) Eosinophils % (Manual) Basophils % (Manual) Nucleated RBC % Seg Neutrophils # Seg Neutrophils # Man Lymphocytes # (Manual) Monocytes # (Manual) Eosinophils # (Manual) Basophils # (Manual) PT INR Fibrinogen dRVVT Confirm Interp Factor V Activity POC ABG pH POC ABG pCO2 POC ABG pO2 ABG pO2 ABG HCO3 ABG Base Excess ABG Hemoglobin Oxyhemoglobin Sodium Potassium Chloride Carbon Dioxide BUN Creatinine Glucose POC Glucose 50 L 51 L Lactic Acid Calcium Phosphorus Magnesium Direct Bilirubin AST ALT Alkaline Phosphatase Lactate Dehydrogenase Troponin T 0.204 H* C-Reactive Protein Total Protein Albumin Prealbumin Triglycerides Cholesterol 31 L LDL Cholesterol Direct 4 L HDL Cholesterol 3 L Urine pH Urine WBC (Auto) Urine Creatinine Urine Total Protein Fluid Total Protein Vancomycin Trough Rheumatoid Factor Complement C4 Miscellaneous Test Crossmatch 09/30/16 09/30/16 09/30/16 01:30 05:15 06:10 WBC RBC Hgb Hct MCV MCH MCHC RDW Plt Count Lymph % (Auto) [place] % (Auto) Lymph # [place] # Baso # Seg Neutrophils % Seg Neuts % (Manual) Lymphocytes % (Manual) Monocytes % (Manual) Eosinophils % (Manual) Basophils % (Manual) Nucleated RBC % Seg Neutrophils # Seg Neutrophils # Man Lymphocytes # (Manual) Monocytes # (Manual) Eosinophils # (Manual) Basophils # (Manual) PT INR Fibrinogen dRVVT Confirm Interp Factor V Activity POC ABG pH POC ABG pCO2 POC ABG pO2 ABG pO2 ABG HCO3 ABG Base Excess ABG Hemoglobin Oxyhemoglobin Sodium 133 L Potassium 3.2 L Chloride 93.2 L Carbon Dioxide 19 L BUN 36 H Creatinine 3.2 H Glucose 104 H POC Glucose 167 H 146 H Lactic Acid Calcium 6.4 L Phosphorus Magnesium 1.60 L Direct Bilirubin AST ALT Alkaline Phosphatase Lactate Dehydrogenase Troponin T C-Reactive Protein Total Protein Albumin Prealbumin Triglycerides Cholesterol LDL Cholesterol Direct HDL Cholesterol Urine pH Urine WBC (Auto) Urine Creatinine Urine Total Protein Fluid Total Protein Vancomycin Trough Rheumatoid Factor Complement C4 Miscellaneous Test Crossmatch 09/30/16 09/30/16 09/30/16 11:26 13:39 18:38 WBC RBC Hgb Hct MCV MCH MCHC RDW Plt Count Lymph % (Auto) [place] % (Auto) Lymph # [place] # Baso # Seg Neutrophils % Seg Neuts % (Manual) Lymphocytes % (Manual) Monocytes % (Manual) Eosinophils % (Manual) Basophils % (Manual) Nucleated RBC % Seg Neutrophils # Seg Neutrophils # Man Lymphocytes # (Manual) Monocytes # (Manual) Eosinophils # (Manual) Basophils # (Manual) PT INR Fibrinogen dRVVT Confirm Interp Factor V Activity POC ABG pH 7.479 H POC ABG pCO2 29.8 L POC ABG pO2 117 H ABG pO2 ABG HCO3 ABG Base Excess ABG Hemoglobin Oxyhemoglobin Sodium Potassium Chloride Carbon Dioxide BUN Creatinine Glucose POC Glucose 140 H 122 H Lactic Acid Calcium Phosphorus Magnesium Direct Bilirubin AST ALT Alkaline Phosphatase Lactate Dehydrogenase Troponin T C-Reactive Protein Total Protein Albumin Prealbumin Triglycerides Cholesterol LDL Cholesterol Direct HDL Cholesterol Urine pH Urine WBC (Auto) Urine Creatinine Urine Total Protein Fluid Total Protein Vancomycin Trough Rheumatoid Factor Complement C4 Miscellaneous Test Crossmatch 10/01/16 10/01/16 10/01/16 06:00 06:00 12:37 WBC 12.6 H RBC 2.75 L Hgb 7.3 L Hct 23.3 L MCV MCH 27 L MCHC RDW 20.6 H Plt Count 72 L Lymph % (Auto) [place] % (Auto) Lymph # [place] # Baso # Seg Neutrophils % Seg Neuts % (Manual) 31.0 L Lymphocytes % (Manual) 8.0 L Monocytes % (Manual) Eosinophils % (Manual) Basophils % (Manual) Nucleated RBC % 3.0 H Seg Neutrophils # Seg Neutrophils # Man Lymphocytes # (Manual) 1.0 L Monocytes # (Manual) Eosinophils # (Manual) Basophils # (Manual) PT INR Fibrinogen dRVVT Confirm Interp Factor V Activity POC ABG pH POC ABG pCO2 POC ABG pO2 ABG pO2 ABG HCO3 ABG Base Excess ABG Hemoglobin Oxyhemoglobin Sodium 127 L Potassium Chloride 86.8 L Carbon Dioxide 20 L BUN 42 H Creatinine 3.5 H Glucose POC Glucose 65 L Lactic Acid Calcium 7.0 L Phosphorus Magnesium Direct Bilirubin AST ALT Alkaline Phosphatase Lactate Dehydrogenase Troponin T C-Reactive Protein Total Protein Albumin Prealbumin Triglycerides Cholesterol LDL Cholesterol Direct HDL Cholesterol Urine pH Urine WBC (Auto) Urine Creatinine Urine Total Protein Fluid Total Protein Vancomycin Trough Rheumatoid Factor Complement C4 Miscellaneous Test Crossmatch 10/01/16 10/01/16 10/02/16 17:39 23:32 00:59 WBC RBC Hgb Hct MCV MCH MCHC RDW Plt Count Lymph % (Auto) [place] % (Auto) Lymph # [place] # Baso # Seg Neutrophils % Seg Neuts % (Manual) Lymphocytes % (Manual) Monocytes % (Manual) Eosinophils % (Manual) Basophils % (Manual) Nucleated RBC % Seg Neutrophils # Seg Neutrophils # Man Lymphocytes # (Manual) Monocytes # (Manual) Eosinophils # (Manual) Basophils # (Manual) PT INR Fibrinogen dRVVT Confirm Interp Factor V Activity POC ABG pH POC ABG pCO2 POC ABG pO2 ABG pO2 ABG HCO3 ABG Base Excess ABG Hemoglobin Oxyhemoglobin Sodium Potassium Chloride Carbon Dioxide BUN Creatinine Glucose POC Glucose 107 H 52 L 145 H Lactic Acid Calcium Phosphorus Magnesium Direct Bilirubin AST ALT Alkaline Phosphatase Lactate Dehydrogenase Troponin T C-Reactive Protein Total Protein Albumin Prealbumin Triglycerides Cholesterol LDL Cholesterol Direct HDL Cholesterol Urine pH Urine WBC (Auto) Urine Creatinine Urine Total Protein Fluid Total Protein Vancomycin Trough Rheumatoid Factor Complement C4 Miscellaneous Test Crossmatch 10/02/16 10/02/16 10/02/16 10:30 10:50 10:50 WBC 14.7 H RBC 2.76 L Hgb 7.4 L Hct 23.6 L MCV MCH 27 L MCHC RDW 20.2 H Plt Count 79 L Lymph % (Auto) [place] % (Auto) Lymph # [place] # Baso # Seg Neutrophils % Seg Neuts % (Manual) 86.0 H Lymphocytes % (Manual) 6.0 L Monocytes % (Manual) Eosinophils % (Manual) Basophils % (Manual) Nucleated RBC % Seg Neutrophils # Seg Neutrophils # Man 12.6 H Lymphocytes # (Manual) 0.9 L Monocytes # (Manual) Eosinophils # (Manual) Basophils # (Manual) PT INR Fibrinogen dRVVT Confirm Interp Factor V Activity POC ABG pH 7.486 H POC ABG pCO2 30.1 L POC ABG pO2 108 H ABG pO2 ABG HCO3 ABG Base Excess ABG Hemoglobin Oxyhemoglobin Sodium 131 L Potassium 3.4 L Chloride 89.9 L Carbon Dioxide BUN 26 H Creatinine 2.6 H Glucose POC Glucose Lactic Acid Calcium 7.0 L Phosphorus Magnesium Direct Bilirubin AST ALT Alkaline Phosphatase Lactate Dehydrogenase Troponin T C-Reactive Protein Total Protein Albumin Prealbumin Triglycerides Cholesterol LDL Cholesterol Direct HDL Cholesterol Urine pH Urine WBC (Auto) Urine Creatinine Urine Total Protein Fluid Total Protein Vancomycin Trough Rheumatoid Factor Complement C4 Miscellaneous Test Crossmatch 10/02/16 10/03/16 10/03/16 23:45 00:45 05:10 WBC 12.9 H RBC 2.77 L Hgb 7.6 L Hct 23.7 L MCV MCH 27 L MCHC RDW 19.7 H Plt Count 89 L Lymph % (Auto) [place] % (Auto) Lymph # [place] # Baso # Seg Neutrophils % Seg Neuts % (Manual) Lymphocytes % (Manual) 8.0 L Monocytes % (Manual) Eosinophils % (Manual) Basophils % (Manual) Nucleated RBC % Seg Neutrophils # 11.9 H Seg Neutrophils # Man Lymphocytes # (Manual) 1.0 L Monocytes # (Manual) Eosinophils # (Manual) Basophils # (Manual) PT INR Fibrinogen dRVVT Confirm Interp Factor V Activity POC ABG pH POC ABG pCO2 POC ABG pO2 ABG pO2 ABG HCO3 ABG Base Excess ABG Hemoglobin Oxyhemoglobin Sodium Potassium Chloride Carbon Dioxide BUN Creatinine Glucose POC Glucose 55 L 199 H Lactic Acid Calcium Phosphorus Magnesium Direct Bilirubin AST ALT Alkaline Phosphatase Lactate Dehydrogenase Troponin T C-Reactive Protein Total Protein Albumin Prealbumin Triglycerides Cholesterol LDL Cholesterol Direct HDL Cholesterol Urine pH Urine WBC (Auto) Urine Creatinine Urine Total Protein Fluid Total Protein Vancomycin Trough Rheumatoid Factor Complement C4 Miscellaneous Test Crossmatch 10/03/16 10/03/16 10/03/16 05:10 12:14 13:18 WBC RBC Hgb Hct MCV MCH MCHC RDW Plt Count Lymph % (Auto) [place] % (Auto) Lymph # [place] # Baso # Seg Neutrophils % Seg Neuts % (Manual) Lymphocytes % (Manual) Monocytes % (Manual) Eosinophils % (Manual) Basophils % (Manual) Nucleated RBC % Seg Neutrophils # Seg Neutrophils # Man Lymphocytes # (Manual) Monocytes # (Manual) Eosinophils # (Manual) Basophils # (Manual) PT INR Fibrinogen dRVVT Confirm Interp Factor V Activity POC ABG pH POC ABG pCO2 POC ABG pO2 ABG pO2 ABG HCO3 ABG Base Excess ABG Hemoglobin Oxyhemoglobin Sodium 129 L Potassium 3.3 L Chloride 88.8 L Carbon Dioxide 20 L BUN 29 H Creatinine 2.8 H Glucose POC Glucose 68 L 127 H Lactic Acid Calcium 7.2 L Phosphorus Magnesium Direct Bilirubin AST ALT Alkaline Phosphatase Lactate Dehydrogenase Troponin T C-Reactive Protein Total Protein Albumin Prealbumin Triglycerides Cholesterol LDL Cholesterol Direct HDL Cholesterol Urine pH Urine WBC (Auto) Urine Creatinine Urine Total Protein Fluid Total Protein Vancomycin Trough Rheumatoid Factor Complement C4 Miscellaneous Test Crossmatch 10/03/16 10/03/16 10/03/16 14:42 18:21 19:09 WBC RBC Hgb Hct MCV MCH MCHC RDW Plt Count Lymph % (Auto) [place] % (Auto) Lymph # [place] # Baso # Seg Neutrophils % Seg Neuts % (Manual) Lymphocytes % (Manual) Monocytes % (Manual) Eosinophils % (Manual) Basophils % (Manual) Nucleated RBC % Seg Neutrophils # Seg Neutrophils # Man Lymphocytes # (Manual) Monocytes # (Manual) Eosinophils # (Manual) Basophils # (Manual) PT INR Fibrinogen dRVVT Confirm Interp Factor V Activity POC ABG pH 7.499 H POC ABG pCO2 28.4 L POC ABG pO2 44 L ABG pO2 ABG HCO3 ABG Base Excess ABG Hemoglobin Oxyhemoglobin Sodium Potassium Chloride Carbon Dioxide BUN Creatinine Glucose POC Glucose 64 L 205 H Lactic Acid Calcium Phosphorus Magnesium Direct Bilirubin AST ALT Alkaline Phosphatase Lactate Dehydrogenase Troponin T C-Reactive Protein Total Protein Albumin Prealbumin Triglycerides Cholesterol LDL Cholesterol Direct HDL Cholesterol Urine pH Urine WBC (Auto) Urine Creatinine Urine Total Protein Fluid Total Protein Vancomycin Trough Rheumatoid Factor Complement C4 Miscellaneous Test Crossmatch 10/03/16 10/04/16 10/04/16 23:33 04:18 06:30 WBC RBC 2.54 L Hgb 7.1 L Hct 21.7 L MCV MCH MCHC RDW 19.5 H Plt Count 76 L Lymph % (Auto) [place] % (Auto) Lymph # [place] # Baso # Seg Neutrophils % Seg Neuts % (Manual) 88.0 H Lymphocytes % (Manual) 6.0 L Monocytes % (Manual) Eosinophils % (Manual) Basophils % (Manual) Nucleated RBC % Seg Neutrophils # Seg Neutrophils # Man 8.8 H Lymphocytes # (Manual) 0.6 L Monocytes # (Manual) Eosinophils # (Manual) Basophils # (Manual) PT INR Fibrinogen dRVVT Confirm Interp Factor V Activity POC ABG pH 7.461 H POC ABG pCO2 33.6 L POC ABG pO2 211 H ABG pO2 ABG HCO3 ABG Base Excess ABG Hemoglobin Oxyhemoglobin Sodium Potassium Chloride Carbon Dioxide BUN Creatinine Glucose POC Glucose 136 H Lactic Acid Calcium Phosphorus Magnesium Direct Bilirubin AST ALT Alkaline Phosphatase Lactate Dehydrogenase Troponin T C-Reactive Protein Total Protein Albumin Prealbumin Triglycerides Cholesterol LDL Cholesterol Direct HDL Cholesterol Urine pH Urine WBC (Auto) Urine Creatinine Urine Total Protein Fluid Total Protein Vancomycin Trough Rheumatoid Factor Complement C4 Miscellaneous Test Crossmatch 10/04/16 10/04/16 10/04/16 06:30 11:45 17:54 WBC RBC Hgb Hct MCV MCH MCHC RDW Plt Count Lymph % (Auto) [place] % (Auto) Lymph # [place] # Baso # Seg Neutrophils % Seg Neuts % (Manual) Lymphocytes % (Manual) Monocytes % (Manual) Eosinophils % (Manual) Basophils % (Manual) Nucleated RBC % Seg Neutrophils # Seg Neutrophils # Man Lymphocytes # (Manual) Monocytes # (Manual) Eosinophils # (Manual) Basophils # (Manual) PT INR Fibrinogen dRVVT Confirm Interp Factor V Activity POC ABG pH POC ABG pCO2 POC ABG pO2 ABG pO2 ABG HCO3 ABG Base Excess ABG Hemoglobin Oxyhemoglobin Sodium 128 L Potassium Chloride 87.4 L Carbon Dioxide 20 L BUN 34 H Creatinine 2.9 H Glucose 127 H POC Glucose 158 H 160 H Lactic Acid Calcium 7.4 L Phosphorus Magnesium Direct Bilirubin AST ALT Alkaline Phosphatase Lactate Dehydrogenase Troponin T C-Reactive Protein Total Protein Albumin Prealbumin Triglycerides Cholesterol LDL Cholesterol Direct HDL Cholesterol Urine pH Urine WBC (Auto) Urine Creatinine Urine Total Protein Fluid Total Protein Vancomycin Trough Rheumatoid Factor Complement C4 Miscellaneous Test Crossmatch 10/04/16 10/05/16 10/05/16 23:25 04:30 05:00 WBC RBC 2.64 L Hgb 7.5 L Hct 22.6 L MCV MCH MCHC RDW 19.3 H Plt Count 80 L Lymph % (Auto) [place] % (Auto) Lymph # [place] # Baso # Seg Neutrophils % Seg Neuts % (Manual) Lymphocytes % (Manual) 12.0 L Monocytes % (Manual) Eosinophils % (Manual) Basophils % (Manual) Nucleated RBC % Seg Neutrophils # Seg Neutrophils # Man Lymphocytes # (Manual) Monocytes # (Manual) Eosinophils # (Manual) Basophils # (Manual) PT INR Fibrinogen dRVVT Confirm Interp Factor V Activity POC ABG pH 7.475 H POC ABG pCO2 33.3 L POC ABG pO2 140 H ABG pO2 ABG HCO3 ABG Base Excess ABG Hemoglobin Oxyhemoglobin Sodium Potassium Chloride Carbon Dioxide BUN Creatinine Glucose POC Glucose 141 H Lactic Acid Calcium Phosphorus Magnesium Direct Bilirubin AST ALT Alkaline Phosphatase Lactate Dehydrogenase Troponin T C-Reactive Protein Total Protein Albumin Prealbumin Triglycerides Cholesterol LDL Cholesterol Direct HDL Cholesterol Urine pH Urine WBC (Auto) Urine Creatinine Urine Total Protein Fluid Total Protein Vancomycin Trough Rheumatoid Factor Complement C4 Miscellaneous Test Crossmatch 10/05/16 10/05/16 10/05/16 05:00 05:09 12:58 WBC RBC Hgb Hct MCV MCH MCHC RDW Plt Count Lymph % (Auto) [place] % (Auto) Lymph # [place] # Baso # Seg Neutrophils % Seg Neuts % (Manual) Lymphocytes % (Manual) Monocytes % (Manual) Eosinophils % (Manual) Basophils % (Manual) Nucleated RBC % Seg Neutrophils # Seg Neutrophils # Man Lymphocytes # (Manual) Monocytes # (Manual) Eosinophils # (Manual) Basophils # (Manual) PT INR Fibrinogen dRVVT Confirm Interp Factor V Activity POC ABG pH POC ABG pCO2 POC ABG pO2 ABG pO2 ABG HCO3 ABG Base Excess ABG Hemoglobin Oxyhemoglobin Sodium 131 L Potassium Chloride 94.0 L Carbon Dioxide 20 L BUN 22 H Creatinine 2.0 H Glucose 123 H POC Glucose 166 H 179 H Lactic Acid Calcium 7.7 L Phosphorus 2.20 L D Magnesium Direct Bilirubin AST ALT Alkaline Phosphatase Lactate Dehydrogenase Troponin T C-Reactive Protein Total Protein Albumin Prealbumin Triglycerides Cholesterol LDL Cholesterol Direct HDL Cholesterol Urine pH Urine WBC (Auto) Urine Creatinine Urine Total Protein Fluid Total Protein Vancomycin Trough Rheumatoid Factor Complement C4 Miscellaneous Test Crossmatch 10/05/16 10/05/16 10/05/16 15:50 18:53 23:12 WBC RBC Hgb Hct MCV MCH MCHC RDW Plt Count Lymph % (Auto) [place] % (Auto) Lymph # [place] # Baso # Seg Neutrophils % Seg Neuts % (Manual) Lymphocytes % (Manual) Monocytes % (Manual) Eosinophils % (Manual) Basophils % (Manual) Nucleated RBC % Seg Neutrophils # Seg Neutrophils # Man Lymphocytes # (Manual) Monocytes # (Manual) Eosinophils # (Manual) Basophils # (Manual) PT INR Fibrinogen dRVVT Confirm Interp Factor V Activity POC ABG pH POC ABG pCO2 POC ABG pO2 ABG pO2 ABG HCO3 ABG Base Excess ABG Hemoglobin Oxyhemoglobin Sodium Potassium Chloride Carbon Dioxide BUN Creatinine Glucose POC Glucose 150 H 164 H Lactic Acid Calcium Phosphorus Magnesium Direct Bilirubin AST ALT Alkaline Phosphatase Lactate Dehydrogenase Troponin T C-Reactive Protein Total Protein Albumin Prealbumin Triglycerides Cholesterol LDL Cholesterol Direct HDL Cholesterol Urine pH Urine WBC (Auto) Urine Creatinine Urine Total Protein Fluid Total Protein Vancomycin Trough Rheumatoid Factor Complement C4 Miscellaneous Test Crossmatch See Detail 10/06/16 10/06/16 10/06/16 03:50 03:50 04:53 WBC RBC 3.00 L Hgb 8.6 L Hct 25.8 L MCV MCH MCHC RDW 17.9 H Plt Count 65 L Lymph % (Auto) [place] % (Auto) Lymph # [place] # Baso # Seg Neutrophils % Seg Neuts % (Manual) 30.0 L Lymphocytes % (Manual) 5.0 L Monocytes % (Manual) Eosinophils % (Manual) Basophils % (Manual) Nucleated RBC % Seg Neutrophils # Seg Neutrophils # Man Lymphocytes # (Manual) 0.4 L Monocytes # (Manual) Eosinophils # (Manual) Basophils # (Manual) PT INR Fibrinogen dRVVT Confirm Interp Factor V Activity POC ABG pH 7.310 L POC ABG pCO2 49.0 H POC ABG pO2 ABG pO2 ABG HCO3 ABG Base Excess ABG Hemoglobin Oxyhemoglobin Sodium 133 L Potassium Chloride 95.9 L Carbon Dioxide BUN 26 H Creatinine 2.0 H Glucose 116 H POC Glucose Lactic Acid Calcium 7.8 L Phosphorus Magnesium Direct Bilirubin AST ALT Alkaline Phosphatase Lactate Dehydrogenase Troponin T C-Reactive Protein Total Protein Albumin Prealbumin Triglycerides Cholesterol LDL Cholesterol Direct HDL Cholesterol Urine pH Urine WBC (Auto) Urine Creatinine Urine Total Protein Fluid Total Protein Vancomycin Trough Rheumatoid Factor Complement C4 Miscellaneous Test Crossmatch 10/06/16 10/06/16 10/06/16 05:23 11:52 18:34 WBC RBC Hgb Hct MCV MCH MCHC RDW Plt Count Lymph % (Auto) [place] % (Auto) Lymph # [place] # Baso # Seg Neutrophils % Seg Neuts % (Manual) Lymphocytes % (Manual) Monocytes % (Manual) Eosinophils % (Manual) Basophils % (Manual) Nucleated RBC % Seg Neutrophils # Seg Neutrophils # Man Lymphocytes # (Manual) Monocytes # (Manual) Eosinophils # (Manual) Basophils # (Manual) PT INR Fibrinogen dRVVT Confirm Interp Factor V Activity POC ABG pH POC ABG pCO2 POC ABG pO2 ABG pO2 ABG HCO3 ABG Base Excess ABG Hemoglobin Oxyhemoglobin Sodium Potassium Chloride Carbon Dioxide BUN Creatinine Glucose POC Glucose 126 H 116 H 129 H Lactic Acid Calcium Phosphorus Magnesium Direct Bilirubin AST ALT Alkaline Phosphatase Lactate Dehydrogenase Troponin T C-Reactive Protein Total Protein Albumin Prealbumin Triglycerides Cholesterol LDL Cholesterol Direct HDL Cholesterol Urine pH Urine WBC (Auto) Urine Creatinine Urine Total Protein Fluid Total Protein Vancomycin Trough Rheumatoid Factor Complement C4 Miscellaneous Test Crossmatch 10/07/16 10/07/16 10/07/16 03:45 05:00 10:00 WBC 17.0 H RBC 2.68 L Hgb 7.3 L Hct 25.3 L MCV MCH 27 L MCHC 29 L RDW 19.6 H Plt Count 74 L Lymph % (Auto) [place] % (Auto) Lymph # [place] # Baso # Seg Neutrophils % Seg Neuts % (Manual) Lymphocytes % (Manual) 12.0 L Monocytes % (Manual) Eosinophils % (Manual) Basophils % (Manual) Nucleated RBC % 4.0 H Seg Neutrophils # Seg Neutrophils # Man 10.7 H Lymphocytes # (Manual) Monocytes # (Manual) Eosinophils # (Manual) Basophils # (Manual) PT INR Fibrinogen dRVVT Confirm Interp Factor V Activity POC ABG pH POC ABG pCO2 POC ABG pO2 ABG pO2 ABG HCO3 ABG Base Excess ABG Hemoglobin Oxyhemoglobin Sodium 130 L Potassium 3.2 L Chloride 93.9 L Carbon Dioxide 20 L BUN 44 H Creatinine 2.7 H Glucose 129 H POC Glucose Lactic Acid Calcium 7.4 L Phosphorus Magnesium Direct Bilirubin AST ALT 6 L Alkaline Phosphatase 195 H Lactate Dehydrogenase Troponin T C-Reactive Protein Total Protein 4.9 L Albumin 1.0 L Prealbumin Triglycerides Cholesterol LDL Cholesterol Direct HDL Cholesterol Urine pH Urine WBC (Auto) Urine Creatinine Urine Total Protein Fluid Total Protein Vancomycin Trough Rheumatoid Factor Complement C4 Miscellaneous Test Flexitest 1 H Crossmatch 10/07/16 10/07/16 10/07/16 10:00 11:24 18:10 WBC RBC Hgb Hct MCV MCH MCHC RDW Plt Count Lymph % (Auto) [place] % (Auto) Lymph # [place] # Baso # Seg Neutrophils % Seg Neuts % (Manual) Lymphocytes % (Manual) Monocytes % (Manual) Eosinophils % (Manual) Basophils % (Manual) Nucleated RBC % Seg Neutrophils # Seg Neutrophils # Man Lymphocytes # (Manual) Monocytes # (Manual) Eosinophils # (Manual) Basophils # (Manual) PT INR Fibrinogen dRVVT Confirm Interp Factor V Activity POC ABG pH POC ABG pCO2 POC ABG pO2 ABG pO2 ABG HCO3 ABG Base Excess ABG Hemoglobin Oxyhemoglobin Sodium Potassium Chloride Carbon Dioxide BUN Creatinine Glucose POC Glucose 116 H 130 H Lactic Acid Calcium Phosphorus Magnesium Direct Bilirubin AST ALT Alkaline Phosphatase Lactate Dehydrogenase Troponin T C-Reactive Protein 19.40 H Total Protein Albumin Prealbumin Triglycerides Cholesterol LDL Cholesterol Direct HDL Cholesterol Urine pH Urine WBC (Auto) Urine Creatinine Urine Total Protein Fluid Total Protein Vancomycin Trough Rheumatoid Factor Complement C4 Miscellaneous Test Crossmatch 10/07/16 10/08/16 10/08/16 18:30 00:00 04:00 WBC RBC Hgb Hct MCV MCH MCHC RDW Plt Count Lymph % (Auto) [place] % (Auto) Lymph # [place] # Baso # Seg Neutrophils % Seg Neuts % (Manual) Lymphocytes % (Manual) Monocytes % (Manual) Eosinophils % (Manual) Basophils % (Manual) Nucleated RBC % Seg Neutrophils # Seg Neutrophils # Man Lymphocytes # (Manual) Monocytes # (Manual) Eosinophils # (Manual) Basophils # (Manual) PT INR Fibrinogen dRVVT Confirm Interp Factor V Activity POC ABG pH POC ABG pCO2 POC ABG pO2 ABG pO2 ABG HCO3 ABG Base Excess ABG Hemoglobin Oxyhemoglobin Sodium 132 L Potassium 3.3 L Chloride 93.6 L Carbon Dioxide 17 L BUN 59 H Creatinine 2.7 H Glucose 121 H POC Glucose 122 H Lactic Acid Calcium 7.6 L Phosphorus Magnesium Direct Bilirubin AST ALT Alkaline Phosphatase Lactate Dehydrogenase Troponin T C-Reactive Protein Total Protein Albumin Prealbumin Triglycerides Cholesterol LDL Cholesterol Direct HDL Cholesterol Urine pH Urine WBC (Auto) > 182.0 H Urine Creatinine Urine Total Protein Fluid Total Protein Vancomycin Trough Rheumatoid Factor Complement C4 Miscellaneous Test Crossmatch 10/08/16 10/08/16 10/08/16 04:30 05:30 11:51 WBC RBC 5.15 H Hgb 14.4 H D Hct 44.5 H D MCV MCH MCHC RDW 19.5 H Plt Count 56 L Lymph % (Auto) [place] % (Auto) Lymph # [place] # Baso # Seg Neutrophils % Seg Neuts % (Manual) 24.0 L Lymphocytes % (Manual) 8.0 L Monocytes % (Manual) Eosinophils % (Manual) Basophils % (Manual) Nucleated RBC % 9.0 H Seg Neutrophils # Seg Neutrophils # Man Lymphocytes # (Manual) 0.7 L Monocytes # (Manual) Eosinophils # (Manual) Basophils # (Manual) PT INR Fibrinogen dRVVT Confirm Interp Factor V Activity POC ABG pH POC ABG pCO2 POC ABG pO2 ABG pO2 ABG HCO3 ABG Base Excess ABG Hemoglobin Oxyhemoglobin Sodium Potassium Chloride Carbon Dioxide BUN Creatinine Glucose POC Glucose 125 H 150 H Lactic Acid Calcium Phosphorus Magnesium Direct Bilirubin AST ALT Alkaline Phosphatase Lactate Dehydrogenase Troponin T C-Reactive Protein Total Protein Albumin Prealbumin Triglycerides Cholesterol LDL Cholesterol Direct HDL Cholesterol Urine pH Urine WBC (Auto) Urine Creatinine Urine Total Protein Fluid Total Protein Vancomycin Trough Rheumatoid Factor Complement C4 Miscellaneous Test Crossmatch 10/08/16 10/08/16 10/08/16 12:49 17:07 19:30 WBC RBC Hgb 7.1 L D Hct 22.4 L D MCV MCH MCHC RDW Plt Count Lymph % (Auto) [place] % (Auto) Lymph # [place] # Baso # Seg Neutrophils % Seg Neuts % (Manual) Lymphocytes % (Manual) Monocytes % (Manual) Eosinophils % (Manual) Basophils % (Manual) Nucleated RBC % Seg Neutrophils # Seg Neutrophils # Man Lymphocytes # (Manual) Monocytes # (Manual) Eosinophils # (Manual) Basophils # (Manual) PT INR Fibrinogen dRVVT Confirm Interp Factor V Activity POC ABG pH POC ABG pCO2 28.2 L POC ABG pO2 111 H ABG pO2 ABG HCO3 ABG Base Excess ABG Hemoglobin Oxyhemoglobin Sodium Potassium Chloride Carbon Dioxide BUN Creatinine Glucose POC Glucose 145 H Lactic Acid Calcium Phosphorus Magnesium Direct Bilirubin AST ALT Alkaline Phosphatase Lactate Dehydrogenase Troponin T C-Reactive Protein Total Protein Albumin Prealbumin Triglycerides Cholesterol LDL Cholesterol Direct HDL Cholesterol Urine pH Urine WBC (Auto) Urine Creatinine Urine Total Protein Fluid Total Protein Vancomycin Trough Rheumatoid Factor Complement C4 Miscellaneous Test Crossmatch 10/08/16 10/09/16 10/09/16 19:30 03:45 03:45 WBC 12.6 H RBC 2.36 L Hgb 6.7 L Hct 21.1 L MCV MCH MCHC RDW 19.5 H Plt Count 75 L Lymph % (Auto) [place] % (Auto) Lymph # [place] # Baso # Seg Neutrophils % Seg Neuts % (Manual) Lymphocytes % (Manual) Monocytes % (Manual) 10.0 H Eosinophils % (Manual) Basophils % (Manual) Nucleated RBC % 3.0 H Seg Neutrophils # Seg Neutrophils # Man Lymphocytes # (Manual) Monocytes # (Manual) 1.3 H Eosinophils # (Manual) Basophils # (Manual) PT 18.0 H INR 1.41 H Fibrinogen dRVVT Confirm Interp Factor V Activity POC ABG pH POC ABG pCO2 POC ABG pO2 ABG pO2 ABG HCO3 ABG Base Excess ABG Hemoglobin Oxyhemoglobin Sodium 135 L Potassium Chloride Carbon Dioxide 17 L BUN 81 H Creatinine 3.2 H Glucose 109 H POC Glucose Lactic Acid Calcium 7.4 L Phosphorus 4.60 H D Magnesium Direct Bilirubin AST ALT Alkaline Phosphatase Lactate Dehydrogenase Troponin T C-Reactive Protein Total Protein Albumin Prealbumin Triglycerides Cholesterol LDL Cholesterol Direct HDL Cholesterol Urine pH Urine WBC (Auto) Urine Creatinine Urine Total Protein Fluid Total Protein Vancomycin Trough Rheumatoid Factor Complement C4 Miscellaneous Test Crossmatch 10/09/16 10/09/16 10/09/16 03:45 05:14 07:20 WBC RBC Hgb Hct MCV MCH MCHC RDW Plt Count Lymph % (Auto) [place] % (Auto) Lymph # [place] # Baso # Seg Neutrophils % Seg Neuts % (Manual) Lymphocytes % (Manual) Monocytes % (Manual) Eosinophils % (Manual) Basophils % (Manual) Nucleated RBC % Seg Neutrophils # Seg Neutrophils # Man Lymphocytes # (Manual) Monocytes # (Manual) Eosinophils # (Manual) Basophils # (Manual) PT 19.0 H INR 1.51 H Fibrinogen dRVVT Confirm Interp Factor V Activity POC ABG pH POC ABG pCO2 POC ABG pO2 ABG pO2 ABG HCO3 ABG Base Excess ABG Hemoglobin Oxyhemoglobin Sodium Potassium Chloride Carbon Dioxide BUN Creatinine Glucose POC Glucose 151 H Lactic Acid Calcium Phosphorus Magnesium Direct Bilirubin AST ALT Alkaline Phosphatase Lactate Dehydrogenase Troponin T C-Reactive Protein Total Protein Albumin Prealbumin Triglycerides Cholesterol LDL Cholesterol Direct HDL Cholesterol Urine pH Urine WBC (Auto) Urine Creatinine Urine Total Protein Fluid Total Protein Vancomycin Trough Rheumatoid Factor Complement C4 Miscellaneous Test Crossmatch See Detail 10/09/16 10/09/16 10/09/16 11:46 16:20 16:43 WBC RBC Hgb 7.2 L Hct 22.2 L MCV MCH MCHC RDW Plt Count Lymph % (Auto) [place] % (Auto) Lymph # [place] # Baso # Seg Neutrophils % Seg Neuts % (Manual) Lymphocytes % (Manual) Monocytes % (Manual) Eosinophils % (Manual) Basophils % (Manual) Nucleated RBC % Seg Neutrophils # Seg Neutrophils # Man Lymphocytes # (Manual) Monocytes # (Manual) Eosinophils # (Manual) Basophils # (Manual) PT INR Fibrinogen dRVVT Confirm Interp Factor V Activity POC ABG pH POC ABG pCO2 POC ABG pO2 ABG pO2 ABG HCO3 ABG Base Excess ABG Hemoglobin Oxyhemoglobin Sodium Potassium Chloride Carbon Dioxide BUN Creatinine Glucose POC Glucose 133 H 141 H Lactic Acid Calcium Phosphorus Magnesium Direct Bilirubin AST ALT Alkaline Phosphatase Lactate Dehydrogenase Troponin T C-Reactive Protein Total Protein Albumin Prealbumin Triglycerides Cholesterol LDL Cholesterol Direct HDL Cholesterol Urine pH Urine WBC (Auto) Urine Creatinine Urine Total Protein Fluid Total Protein Vancomycin Trough Rheumatoid Factor Complement C4 Miscellaneous Test Crossmatch 10/10/16 10/10/16 10/10/16 05:00 05:00 11:19 WBC 18.5 H RBC 2.19 L Hgb 6.4 L Hct 19.6 L* MCV MCH MCHC RDW 19.3 H Plt Count 93 L Lymph % (Auto) [place] % (Auto) Lymph # [place] # Baso # Seg Neutrophils % Seg Neuts % (Manual) Lymphocytes % (Manual) 10.0 L Monocytes % (Manual) Eosinophils % (Manual) Basophils % (Manual) Nucleated RBC % 4.0 H Seg Neutrophils # Seg Neutrophils # Man 11.3 H Lymphocytes # (Manual) Monocytes # (Manual) Eosinophils # (Manual) Basophils # (Manual) PT INR Fibrinogen dRVVT Confirm Interp Factor V Activity POC ABG pH POC ABG pCO2 POC ABG pO2 ABG pO2 ABG HCO3 ABG Base Excess ABG Hemoglobin Oxyhemoglobin Sodium Potassium 5.7 H D Chloride Carbon Dioxide 16 L BUN 94 H Creatinine 3.1 H Glucose 131 H POC Glucose 153 H Lactic Acid Calcium 8.2 L Phosphorus 5.10 H Magnesium 2.40 H Direct Bilirubin 0.3 H AST ALT < 5 L Alkaline Phosphatase 319 H Lactate Dehydrogenase Troponin T C-Reactive Protein Total Protein 5.1 L Albumin 1.0 L Prealbumin Triglycerides Cholesterol LDL Cholesterol Direct HDL Cholesterol Urine pH Urine WBC (Auto) Urine Creatinine Urine Total Protein Fluid Total Protein Vancomycin Trough Rheumatoid Factor Complement C4 Miscellaneous Test Crossmatch 10/10/16 10/10/16 10/11/16 17:50 23:30 04:15 WBC RBC Hgb Hct MCV MCH MCHC RDW Plt Count Lymph % (Auto) [place] % (Auto) Lymph # [place] # Baso # Seg Neutrophils % Seg Neuts % (Manual) Lymphocytes % (Manual) Monocytes % (Manual) Eosinophils % (Manual) Basophils % (Manual) Nucleated RBC % Seg Neutrophils # Seg Neutrophils # Man Lymphocytes # (Manual) Monocytes # (Manual) Eosinophils # (Manual) Basophils # (Manual) PT INR Fibrinogen dRVVT Confirm Interp Factor V Activity POC ABG pH POC ABG pCO2 POC ABG pO2 ABG pO2 ABG HCO3 ABG Base Excess ABG Hemoglobin Oxyhemoglobin Sodium Potassium Chloride 96.4 L Carbon Dioxide 21 L BUN 57 H Creatinine 2.1 H Glucose 151 H POC Glucose 146 H 141 H Lactic Acid Calcium 8.3 L Phosphorus Magnesium Direct Bilirubin AST ALT Alkaline Phosphatase Lactate Dehydrogenase Troponin T C-Reactive Protein Total Protein Albumin Prealbumin Triglycerides Cholesterol LDL Cholesterol Direct HDL Cholesterol Urine pH Urine WBC (Auto) Urine Creatinine Urine Total Protein Fluid Total Protein Vancomycin Trough Rheumatoid Factor Complement C4 Miscellaneous Test Crossmatch 10/11/16 10/11/16 10/11/16 04:15 04:15 05:30 WBC 28.3 H RBC 3.12 L Hgb 9.3 L Hct 28.7 L D MCV MCH MCHC RDW 17.7 H Plt Count 128 L Lymph % (Auto) [place] % (Auto) Lymph # [place] # Baso # Seg Neutrophils % Seg Neuts % (Manual) Lymphocytes % (Manual) Monocytes % (Manual) Eosinophils % (Manual) Basophils % (Manual) Nucleated RBC % Seg Neutrophils # Seg Neutrophils # Man Lymphocytes # (Manual) Monocytes # (Manual) Eosinophils # (Manual) Basophils # (Manual) PT INR Fibrinogen dRVVT Confirm Interp Factor V Activity POC ABG pH POC ABG pCO2 POC ABG pO2 ABG pO2 ABG HCO3 ABG Base Excess ABG Hemoglobin Oxyhemoglobin Sodium Potassium Chloride Carbon Dioxide BUN Creatinine Glucose POC Glucose 167 H Lactic Acid Calcium Phosphorus Magnesium Direct Bilirubin AST ALT Alkaline Phosphatase Lactate Dehydrogenase Troponin T C-Reactive Protein 15.80 H Total Protein Albumin Prealbumin Triglycerides Cholesterol LDL Cholesterol Direct HDL Cholesterol Urine pH Urine WBC (Auto) Urine Creatinine Urine Total Protein Fluid Total Protein Vancomycin Trough Rheumatoid Factor Complement C4 Miscellaneous Test Crossmatch 10/11/16 10/11/16 10/11/16 11:40 15:49 23:57 WBC RBC Hgb Hct MCV MCH MCHC RDW Plt Count Lymph % (Auto) [place] % (Auto) Lymph # [place] # Baso # Seg Neutrophils % Seg Neuts % (Manual) Lymphocytes % (Manual) Monocytes % (Manual) Eosinophils % (Manual) Basophils % (Manual) Nucleated RBC % Seg Neutrophils # Seg Neutrophils # Man Lymphocytes # (Manual) Monocytes # (Manual) Eosinophils # (Manual) Basophils # (Manual) PT INR Fibrinogen dRVVT Confirm Interp Factor V Activity POC ABG pH POC ABG pCO2 POC ABG pO2 ABG pO2 ABG HCO3 ABG Base Excess ABG Hemoglobin Oxyhemoglobin Sodium Potassium Chloride Carbon Dioxide BUN Creatinine Glucose POC Glucose 139 H 168 H 161 H Lactic Acid Calcium Phosphorus Magnesium Direct Bilirubin AST ALT Alkaline Phosphatase Lactate Dehydrogenase Troponin T C-Reactive Protein Total Protein Albumin Prealbumin Triglycerides Cholesterol LDL Cholesterol Direct HDL Cholesterol Urine pH Urine WBC (Auto) Urine Creatinine Urine Total Protein Fluid Total Protein Vancomycin Trough Rheumatoid Factor Complement C4 Miscellaneous Test Crossmatch 10/12/16 10/12/16 10/12/16 04:40 04:40 05:44 WBC 22.5 H RBC 2.88 L Hgb 8.8 L Hct 26.8 L MCV MCH MCHC RDW 17.8 H Plt Count Lymph % (Auto) [place] % (Auto) Lymph # [place] # Baso # Seg Neutrophils % Seg Neuts % (Manual) Lymphocytes % (Manual) Monocytes % (Manual) Eosinophils % (Manual) Basophils % (Manual) Nucleated RBC % Seg Neutrophils # Seg Neutrophils # Man Lymphocytes # (Manual) Monocytes # (Manual) Eosinophils # (Manual) Basophils # (Manual) PT INR Fibrinogen dRVVT Confirm Interp Factor V Activity POC ABG pH POC ABG pCO2 POC ABG pO2 ABG pO2 ABG HCO3 ABG Base Excess ABG Hemoglobin Oxyhemoglobin Sodium 134 L Potassium Chloride 93.0 L Carbon Dioxide BUN 74 H Creatinine 2.5 H Glucose 137 H POC Glucose 158 H Lactic Acid Calcium 8.2 L Phosphorus Magnesium Direct Bilirubin AST ALT Alkaline Phosphatase Lactate Dehydrogenase Troponin T C-Reactive Protein Total Protein Albumin Prealbumin Triglycerides Cholesterol LDL Cholesterol Direct HDL Cholesterol Urine pH Urine WBC (Auto) Urine Creatinine Urine Total Protein Fluid Total Protein Vancomycin Trough Rheumatoid Factor Complement C4 Miscellaneous Test Crossmatch 10/12/16 10/12/16 10/12/16 12:27 18:18 23:46 WBC RBC Hgb Hct MCV MCH MCHC RDW Plt Count Lymph % (Auto) [place] % (Auto) Lymph # [place] # Baso # Seg Neutrophils % Seg Neuts % (Manual) Lymphocytes % (Manual) Monocytes % (Manual) Eosinophils % (Manual) Basophils % (Manual) Nucleated RBC % Seg Neutrophils # Seg Neutrophils # Man Lymphocytes # (Manual) Monocytes # (Manual) Eosinophils # (Manual) Basophils # (Manual) PT INR Fibrinogen dRVVT Confirm Interp Factor V Activity POC ABG pH POC ABG pCO2 POC ABG pO2 ABG pO2 ABG HCO3 ABG Base Excess ABG Hemoglobin Oxyhemoglobin Sodium Potassium Chloride Carbon Dioxide BUN Creatinine Glucose POC Glucose 153 H 140 H 150 H Lactic Acid Calcium Phosphorus Magnesium Direct Bilirubin AST ALT Alkaline Phosphatase Lactate Dehydrogenase Troponin T C-Reactive Protein Total Protein Albumin Prealbumin Triglycerides Cholesterol LDL Cholesterol Direct HDL Cholesterol Urine pH Urine WBC (Auto) Urine Creatinine Urine Total Protein Fluid Total Protein Vancomycin Trough Rheumatoid Factor Complement C4 Miscellaneous Test Crossmatch 10/13/16 10/13/16 10/13/16 06:22 09:20 12:29 WBC RBC Hgb Hct MCV MCH MCHC RDW Plt Count Lymph % (Auto) [place] % (Auto) Lymph # [place] # Baso # Seg Neutrophils % Seg Neuts % (Manual) Lymphocytes % (Manual) Monocytes % (Manual) Eosinophils % (Manual) Basophils % (Manual) Nucleated RBC % Seg Neutrophils # Seg Neutrophils # Man Lymphocytes # (Manual) Monocytes # (Manual) Eosinophils # (Manual) Basophils # (Manual) PT INR Fibrinogen dRVVT Confirm Interp Factor V Activity POC ABG pH POC ABG pCO2 POC ABG pO2 ABG pO2 ABG HCO3 ABG Base Excess ABG Hemoglobin Oxyhemoglobin Sodium Potassium Chloride Carbon Dioxide BUN Creatinine Glucose POC Glucose 165 H 193 H Lactic Acid Calcium Phosphorus Magnesium Direct Bilirubin AST ALT Alkaline Phosphatase Lactate Dehydrogenase Troponin T C-Reactive Protein Total Protein Albumin Prealbumin Triglycerides Cholesterol LDL Cholesterol Direct HDL Cholesterol Urine pH Urine WBC (Auto) Urine Creatinine Urine Total Protein Fluid Total Protein Vancomycin Trough Rheumatoid Factor Complement C4 Miscellaneous Test Flexitest 1 H Crossmatch 10/13/16 10/13/16 10/13/16 18:09 Unknown Unknown WBC 23.4 H RBC 2.83 L Hgb 8.7 L Hct 26.1 L MCV MCH MCHC RDW 18.1 H Plt Count Lymph % (Auto) Trigg % (Auto) Lymph # Trigg # Baso # Seg Neutrophils % Seg Neuts % (Manual) Lymphocytes % (Manual) Monocytes % (Manual) Eosinophils % (Manual) Basophils % (Manual) Nucleated RBC % Seg Neutrophils # Seg Neutrophils # Man Lymphocytes # (Manual) Monocytes # (Manual) Eosinophils # (Manual) Basophils # (Manual) PT INR Fibrinogen dRVVT Confirm Interp Factor V Activity POC ABG pH POC ABG pCO2 POC ABG pO2 ABG pO2 ABG HCO3 ABG Base Excess ABG Hemoglobin Oxyhemoglobin Sodium Potassium Chloride 95.8 L Carbon Dioxide BUN 82 H Creatinine 2.6 H Glucose 152 H POC Glucose 166 H Lactic Acid Calcium Phosphorus Magnesium Direct Bilirubin AST ALT Alkaline Phosphatase Lactate Dehydrogenase Troponin T C-Reactive Protein Total Protein Albumin Prealbumin Triglycerides Cholesterol LDL Cholesterol Direct HDL Cholesterol Urine pH Urine WBC (Auto) Urine Creatinine Urine Total Protein Fluid Total Protein Vancomycin Trough Rheumatoid Factor Complement C4 Miscellaneous Test Crossmatch 10/14/16 10/14/16 10/14/16 05:38 06:35 08:10 WBC 20.7 H RBC 2.81 L Hgb 8.4 L Hct 27.2 L MCV MCH MCHC RDW 19.4 H Plt Count Lymph % (Auto) [place] % (Auto) Lymph # Trigg # Baso # Seg Neutrophils % Seg Neuts % (Manual) Lymphocytes % (Manual) Monocytes % (Manual) Eosinophils % (Manual) Basophils % (Manual) Nucleated RBC % Seg Neutrophils # Seg Neutrophils # Man Lymphocytes # (Manual) Monocytes # (Manual) Eosinophils # (Manual) Basophils # (Manual) PT INR Fibrinogen dRVVT Confirm Interp Factor V Activity POC ABG pH POC ABG pCO2 POC ABG pO2 ABG pO2 ABG HCO3 ABG Base Excess ABG Hemoglobin Oxyhemoglobin Sodium Potassium Chloride Carbon Dioxide BUN 58 H Creatinine 1.9 H Glucose 169 H POC Glucose 195 H Lactic Acid Calcium Phosphorus Magnesium Direct Bilirubin AST ALT Alkaline Phosphatase Lactate Dehydrogenase Troponin T C-Reactive Protein Total Protein Albumin Prealbumin Triglycerides Cholesterol LDL Cholesterol Direct HDL Cholesterol Urine pH Urine WBC (Auto) Urine Creatinine Urine Total Protein Fluid Total Protein Vancomycin Trough Rheumatoid Factor Complement C4 Miscellaneous Test Crossmatch 10/14/16 10/14/16 10/14/16 11:44 17:13 23:28 WBC RBC Hgb Hct MCV MCH MCHC RDW Plt Count Lymph % (Auto) [place] % (Auto) Lymph # Trigg # Baso # Seg Neutrophils % Seg Neuts % (Manual) Lymphocytes % (Manual) Monocytes % (Manual) Eosinophils % (Manual) Basophils % (Manual) Nucleated RBC % Seg Neutrophils # Seg Neutrophils # Man Lymphocytes # (Manual) Monocytes # (Manual) Eosinophils # (Manual) Basophils # (Manual) PT INR Fibrinogen dRVVT Confirm Interp Factor V Activity POC ABG pH POC ABG pCO2 POC ABG pO2 ABG pO2 ABG HCO3 ABG Base Excess ABG Hemoglobin Oxyhemoglobin Sodium Potassium Chloride Carbon Dioxide BUN Creatinine Glucose POC Glucose 174 H 121 H 151 H Lactic Acid Calcium Phosphorus Magnesium Direct Bilirubin AST ALT Alkaline Phosphatase Lactate Dehydrogenase Troponin T C-Reactive Protein Total Protein Albumin Prealbumin Triglycerides Cholesterol LDL Cholesterol Direct HDL Cholesterol Urine pH Urine WBC (Auto) Urine Creatinine Urine Total Protein Fluid Total Protein Vancomycin Trough Rheumatoid Factor Complement C4 Miscellaneous Test Crossmatch 10/15/16 10/15/16 10/15/16 05:06 12:26 17:48 WBC RBC Hgb Hct MCV MCH MCHC RDW Plt Count Lymph % (Auto) [place] % (Auto) Lymph # Trigg # Baso # Seg Neutrophils % Seg Neuts % (Manual) Lymphocytes % (Manual) Monocytes % (Manual) Eosinophils % (Manual) Basophils % (Manual) Nucleated RBC % Seg Neutrophils # Seg Neutrophils # Man Lymphocytes # (Manual) Monocytes # (Manual) Eosinophils # (Manual) Basophils # (Manual) PT INR Fibrinogen dRVVT Confirm Interp Factor V Activity POC ABG pH POC ABG pCO2 POC ABG pO2 ABG pO2 ABG HCO3 ABG Base Excess ABG Hemoglobin Oxyhemoglobin Sodium Potassium Chloride Carbon Dioxide BUN Creatinine Glucose POC Glucose 151 H 149 H 153 H Lactic Acid Calcium Phosphorus Magnesium Direct Bilirubin AST ALT Alkaline Phosphatase Lactate Dehydrogenase Troponin T C-Reactive Protein Total Protein Albumin Prealbumin Triglycerides Cholesterol LDL Cholesterol Direct HDL Cholesterol Urine pH Urine WBC (Auto) Urine Creatinine Urine Total Protein Fluid Total Protein Vancomycin Trough Rheumatoid Factor Complement C4 Miscellaneous Test Crossmatch 10/15/16 10/15/16 10/16/16 Unknown Unknown 00:02 WBC 23.4 H RBC 2.78 L Hgb 8.5 L Hct 25.7 L MCV MCH MCHC RDW 18.7 H Plt Count Lymph % (Auto) [place] % (Auto) Lymph # Trigg # Baso # Seg Neutrophils % Seg Neuts % (Manual) Lymphocytes % (Manual) Monocytes % (Manual) Eosinophils % (Manual) Basophils % (Manual) Nucleated RBC % Seg Neutrophils # Seg Neutrophils # Man Lymphocytes # (Manual) Monocytes # (Manual) Eosinophils # (Manual) Basophils # (Manual) PT INR Fibrinogen dRVVT Confirm Interp Factor V Activity POC ABG pH POC ABG pCO2 POC ABG pO2 ABG pO2 ABG HCO3 ABG Base Excess ABG Hemoglobin Oxyhemoglobin Sodium Potassium Chloride Carbon Dioxide BUN 73 H Creatinine 2.3 H Glucose 120 H POC Glucose 137 H Lactic Acid Calcium Phosphorus Magnesium Direct Bilirubin AST ALT Alkaline Phosphatase Lactate Dehydrogenase Troponin T C-Reactive Protein Total Protein Albumin Prealbumin Triglycerides Cholesterol LDL Cholesterol Direct HDL Cholesterol Urine pH Urine WBC (Auto) Urine Creatinine Urine Total Protein Fluid Total Protein Vancomycin Trough Rheumatoid Factor Complement C4 Miscellaneous Test Crossmatch 10/16/16 10/16/16 10/16/16 05:44 06:25 06:25 WBC 22.5 H RBC 2.76 L Hgb 8.3 L Hct 25.2 L MCV MCH MCHC RDW 18.3 H Plt Count Lymph % (Auto) [place] % (Auto) Lymph # Trigg # Baso # Seg Neutrophils % Seg Neuts % (Manual) Lymphocytes % (Manual) Monocytes % (Manual) Eosinophils % (Manual) Basophils % (Manual) Nucleated RBC % Seg Neutrophils # Seg Neutrophils # Man Lymphocytes # (Manual) Monocytes # (Manual) Eosinophils # (Manual) Basophils # (Manual) PT INR Fibrinogen dRVVT Confirm Interp Factor V Activity POC ABG pH POC ABG pCO2 POC ABG pO2 ABG pO2 ABG HCO3 ABG Base Excess ABG Hemoglobin Oxyhemoglobin Sodium Potassium Chloride Carbon Dioxide BUN 92 H Creatinine 3.0 H Glucose 138 H POC Glucose 110 H Lactic Acid Calcium Phosphorus Magnesium Direct Bilirubin AST ALT Alkaline Phosphatase Lactate Dehydrogenase Troponin T C-Reactive Protein Total Protein Albumin Prealbumin Triglycerides Cholesterol LDL Cholesterol Direct HDL Cholesterol Urine pH Urine WBC (Auto) Urine Creatinine Urine Total Protein Fluid Total Protein Vancomycin Trough Rheumatoid Factor Complement C4 Miscellaneous Test Crossmatch 10/16/16 10/16/16 10/16/16 11:27 11:48 17:36 WBC RBC Hgb Hct MCV MCH MCHC RDW Plt Count Lymph % (Auto) [place] % (Auto) Lymph # Trigg # Baso # Seg Neutrophils % Seg Neuts % (Manual) Lymphocytes % (Manual) Monocytes % (Manual) Eosinophils % (Manual) Basophils % (Manual) Nucleated RBC % Seg Neutrophils # Seg Neutrophils # Man Lymphocytes # (Manual) Monocytes # (Manual) Eosinophils # (Manual) Basophils # (Manual) PT INR Fibrinogen dRVVT Confirm Interp Factor V Activity POC ABG pH 7.582 H POC ABG pCO2 27.4 L POC ABG pO2 110 H ABG pO2 ABG HCO3 ABG Base Excess ABG Hemoglobin Oxyhemoglobin Sodium Potassium Chloride Carbon Dioxide BUN Creatinine Glucose POC Glucose 121 H 133 H Lactic Acid Calcium Phosphorus Magnesium Direct Bilirubin AST ALT Alkaline Phosphatase Lactate Dehydrogenase Troponin T C-Reactive Protein Total Protein Albumin Prealbumin Triglycerides Cholesterol LDL Cholesterol Direct HDL Cholesterol Urine pH Urine WBC (Auto) Urine Creatinine Urine Total Protein Fluid Total Protein Vancomycin Trough Rheumatoid Factor Complement C4 Miscellaneous Test Crossmatch 10/16/16 10/17/16 10/17/16 20:48 04:24 04:24 WBC 21.4 H RBC 2.72 L Hgb 8.0 L Hct 25.2 L MCV MCH MCHC RDW 18.0 H Plt Count Lymph % (Auto) [place] % (Auto) Lymph # Trigg # Baso # Seg Neutrophils % Seg Neuts % (Manual) Lymphocytes % (Manual) Monocytes % (Manual) Eosinophils % (Manual) Basophils % (Manual) Nucleated RBC % Seg Neutrophils # Seg Neutrophils # Man Lymphocytes # (Manual) Monocytes # (Manual) Eosinophils # (Manual) Basophils # (Manual) PT INR Fibrinogen dRVVT Confirm Interp Factor V Activity POC ABG pH 7.561 H POC ABG pCO2 24.4 L POC ABG pO2 77 L ABG pO2 ABG HCO3 ABG Base Excess ABG Hemoglobin Oxyhemoglobin Sodium 148 H Potassium Chloride Carbon Dioxide BUN 104 H Creatinine 3.0 H Glucose 149 H POC Glucose Lactic Acid Calcium Phosphorus Magnesium Direct Bilirubin AST ALT Alkaline Phosphatase 138 H Lactate Dehydrogenase Troponin T C-Reactive Protein Total Protein 6.2 L Albumin 1.5 L Prealbumin Triglycerides Cholesterol LDL Cholesterol Direct HDL Cholesterol Urine pH Urine WBC (Auto) Urine Creatinine Urine Total Protein Fluid Total Protein Vancomycin Trough Rheumatoid Factor Complement C4 Miscellaneous Test Crossmatch 10/17/16 10/17/16 10/17/16 06:02 12:17 17:14 WBC RBC Hgb Hct MCV MCH MCHC RDW Plt Count Lymph % (Auto) [place] % (Auto) Lymph # [place] # Baso # Seg Neutrophils % Seg Neuts % (Manual) Lymphocytes % (Manual) Monocytes % (Manual) Eosinophils % (Manual) Basophils % (Manual) Nucleated RBC % Seg Neutrophils # Seg Neutrophils # Man Lymphocytes # (Manual) Monocytes # (Manual) Eosinophils # (Manual) Basophils # (Manual) PT INR Fibrinogen dRVVT Confirm Interp Factor V Activity POC ABG pH POC ABG pCO2 POC ABG pO2 ABG pO2 ABG HCO3 ABG Base Excess ABG Hemoglobin Oxyhemoglobin Sodium Potassium Chloride Carbon Dioxide BUN Creatinine Glucose POC Glucose 170 H 167 H 126 H Lactic Acid Calcium Phosphorus Magnesium Direct Bilirubin AST ALT Alkaline Phosphatase Lactate Dehydrogenase Troponin T C-Reactive Protein Total Protein Albumin Prealbumin Triglycerides Cholesterol LDL Cholesterol Direct HDL Cholesterol Urine pH Urine WBC (Auto) Urine Creatinine Urine Total Protein Fluid Total Protein Vancomycin Trough Rheumatoid Factor Complement C4 Miscellaneous Test Crossmatch 10/17/16 10/18/16 10/18/16 23:17 04:00 04:00 WBC 20.7 H RBC 2.47 L Hgb 7.4 L Hct 22.9 L MCV MCH MCHC RDW 17.5 H Plt Count Lymph % (Auto) [place] % (Auto) Lymph # Trigg # Baso # Seg Neutrophils % Seg Neuts % (Manual) Lymphocytes % (Manual) Monocytes % (Manual) Eosinophils % (Manual) Basophils % (Manual) Nucleated RBC % Seg Neutrophils # Seg Neutrophils # Man Lymphocytes # (Manual) Monocytes # (Manual) Eosinophils # (Manual) Basophils # (Manual) PT INR Fibrinogen dRVVT Confirm Interp Factor V Activity POC ABG pH POC ABG pCO2 POC ABG pO2 ABG pO2 ABG HCO3 ABG Base Excess ABG Hemoglobin Oxyhemoglobin Sodium 149 H Potassium Chloride 107.9 H Carbon Dioxide 20 L BUN 117 H Creatinine 3.2 H Glucose 119 H POC Glucose 121 H Lactic Acid Calcium Phosphorus Magnesium Direct Bilirubin AST ALT Alkaline Phosphatase Lactate Dehydrogenase Troponin T C-Reactive Protein Total Protein Albumin Prealbumin Triglycerides Cholesterol LDL Cholesterol Direct HDL Cholesterol Urine pH Urine WBC (Auto) Urine Creatinine Urine Total Protein Fluid Total Protein Vancomycin Trough Rheumatoid Factor Complement C4 Miscellaneous Test Crossmatch 10/18/16 10/18/16 10/18/16 05:23 10:46 17:30 WBC RBC Hgb Hct MCV MCH MCHC RDW Plt Count Lymph % (Auto) [place] % (Auto) Lymph # [place]igg # Baso # Seg Neutrophils % Seg Neuts % (Manual) Lymphocytes % (Manual) Monocytes % (Manual) Eosinophils % (Manual) Basophils % (Manual) Nucleated RBC % Seg Neutrophils # Seg Neutrophils # Man Lymphocytes # (Manual) Monocytes # (Manual) Eosinophils # (Manual) Basophils # (Manual) PT INR Fibrinogen dRVVT Confirm Interp Factor V Activity POC ABG pH POC ABG pCO2 POC ABG pO2 ABG pO2 ABG HCO3 ABG Base Excess ABG Hemoglobin Oxyhemoglobin Sodium Potassium Chloride Carbon Dioxide BUN Creatinine Glucose POC Glucose 119 H 155 H 124 H Lactic Acid Calcium Phosphorus Magnesium Direct Bilirubin AST ALT Alkaline Phosphatase Lactate Dehydrogenase Troponin T C-Reactive Protein Total Protein Albumin Prealbumin Triglycerides Cholesterol LDL Cholesterol Direct HDL Cholesterol Urine pH Urine WBC (Auto) Urine Creatinine Urine Total Protein Fluid Total Protein Vancomycin Trough Rheumatoid Factor Complement C4 Miscellaneous Test Crossmatch 10/19/16 10/19/16 10/19/16 04:00 04:00 05:25 WBC 17.4 H RBC 2.54 L Hgb 7.7 L Hct 23.6 L MCV MCH MCHC RDW 17.3 H Plt Count Lymph % (Auto) [place] % (Auto) Lymph # [place]igg # Baso # Seg Neutrophils % Seg Neuts % (Manual) Lymphocytes % (Manual) Monocytes % (Manual) Eosinophils % (Manual) Basophils % (Manual) Nucleated RBC % Seg Neutrophils # Seg Neutrophils # Man Lymphocytes # (Manual) Monocytes # (Manual) Eosinophils # (Manual) Basophils # (Manual) PT INR Fibrinogen dRVVT Confirm Interp Factor V Activity POC ABG pH POC ABG pCO2 POC ABG pO2 ABG pO2 ABG HCO3 ABG Base Excess ABG Hemoglobin Oxyhemoglobin Sodium Potassium Chloride Carbon Dioxide BUN 72 H Creatinine 2.1 H Glucose 116 H POC Glucose 119 H Lactic Acid Calcium Phosphorus Magnesium Direct Bilirubin AST ALT Alkaline Phosphatase Lactate Dehydrogenase Troponin T C-Reactive Protein Total Protein Albumin Prealbumin Triglycerides Cholesterol LDL Cholesterol Direct HDL Cholesterol Urine pH Urine WBC (Auto) Urine Creatinine Urine Total Protein Fluid Total Protein Vancomycin Trough Rheumatoid Factor Complement C4 Miscellaneous Test Crossmatch 10/19/16 10/19/16 10/20/16 11:46 23:59 06:00 WBC RBC Hgb Hct MCV MCH MCHC RDW Plt Count Lymph % (Auto) [place] % (Auto) Lymph # Trigg # Baso # Seg Neutrophils % Seg Neuts % (Manual) Lymphocytes % (Manual) Monocytes % (Manual) Eosinophils % (Manual) Basophils % (Manual) Nucleated RBC % Seg Neutrophils # Seg Neutrophils # Man Lymphocytes # (Manual) Monocytes # (Manual) Eosinophils # (Manual) Basophils # (Manual) PT INR Fibrinogen dRVVT Confirm Interp Factor V Activity POC ABG pH POC ABG pCO2 POC ABG pO2 ABG pO2 ABG HCO3 ABG Base Excess ABG Hemoglobin Oxyhemoglobin Sodium Potassium Chloride Carbon Dioxide 17 L BUN 94 H Creatinine 2.7 H Glucose POC Glucose 116 H 117 H Lactic Acid Calcium Phosphorus Magnesium Direct Bilirubin AST ALT Alkaline Phosphatase Lactate Dehydrogenase Troponin T C-Reactive Protein Total Protein Albumin Prealbumin Triglycerides Cholesterol LDL Cholesterol Direct HDL Cholesterol Urine pH Urine WBC (Auto) Urine Creatinine Urine Total Protein Fluid Total Protein Vancomycin Trough Rheumatoid Factor Complement C4 Miscellaneous Test Crossmatch 10/20/16 10/20/16 10/20/16 06:00 11:49 16:00 WBC 19.7 H RBC 2.51 L Hgb 7.7 L Hct 23.5 L MCV MCH MCHC RDW 17.5 H Plt Count Lymph % (Auto) [place] % (Auto) Lymph # Trigg # Baso # Seg Neutrophils % Seg Neuts % (Manual) Lymphocytes % (Manual) Monocytes % (Manual) Eosinophils % (Manual) Basophils % (Manual) Nucleated RBC % Seg Neutrophils # Seg Neutrophils # Man Lymphocytes # (Manual) Monocytes # (Manual) Eosinophils # (Manual) Basophils # (Manual) PT INR Fibrinogen dRVVT Confirm Interp Factor V Activity POC ABG pH POC ABG pCO2 POC ABG pO2 ABG pO2 ABG HCO3 ABG Base Excess ABG Hemoglobin Oxyhemoglobin Sodium Potassium Chloride Carbon Dioxide BUN Creatinine Glucose POC Glucose 117 H Lactic Acid Calcium Phosphorus Magnesium Direct Bilirubin AST ALT Alkaline Phosphatase Lactate Dehydrogenase Troponin T C-Reactive Protein Total Protein Albumin Prealbumin Triglycerides Cholesterol LDL Cholesterol Direct HDL Cholesterol Urine pH Urine WBC (Auto) Urine Creatinine Urine Total Protein Fluid Total Protein Vancomycin Trough Rheumatoid Factor Complement C4 Miscellaneous Test Flexitest 1 H Crossmatch 10/20/16 10/20/16 10/21/16 18:36 23:39 04:00 WBC RBC Hgb Hct MCV MCH MCHC RDW Plt Count Lymph % (Auto) [place] % (Auto) Lymph # [place] # Baso # Seg Neutrophils % Seg Neuts % (Manual) Lymphocytes % (Manual) Monocytes % (Manual) Eosinophils % (Manual) Basophils % (Manual) Nucleated RBC % Seg Neutrophils # Seg Neutrophils # Man Lymphocytes # (Manual) Monocytes # (Manual) Eosinophils # (Manual) Basophils # (Manual) PT INR Fibrinogen dRVVT Confirm Interp Factor V Activity POC ABG pH POC ABG pCO2 POC ABG pO2 ABG pO2 ABG HCO3 ABG Base Excess ABG Hemoglobin Oxyhemoglobin Sodium Potassium 5.4 H D Chloride Carbon Dioxide 15 L BUN 110 H Creatinine 3.0 H Glucose POC Glucose 127 H 114 H Lactic Acid Calcium Phosphorus Magnesium Direct Bilirubin AST ALT Alkaline Phosphatase Lactate Dehydrogenase Troponin T C-Reactive Protein Total Protein Albumin Prealbumin Triglycerides Cholesterol LDL Cholesterol Direct HDL Cholesterol Urine pH Urine WBC (Auto) Urine Creatinine Urine Total Protein Fluid Total Protein Vancomycin Trough Rheumatoid Factor Complement C4 Miscellaneous Test Crossmatch 10/21/16 10/21/16 10/22/16 05:54 23:46 05:18 WBC RBC Hgb Hct MCV MCH MCHC RDW Plt Count Lymph % (Auto) [place] % (Auto) Lymph # [place] # Baso # Seg Neutrophils % Seg Neuts % (Manual) Lymphocytes % (Manual) Monocytes % (Manual) Eosinophils % (Manual) Basophils % (Manual) Nucleated RBC % Seg Neutrophils # Seg Neutrophils # Man Lymphocytes # (Manual) Monocytes # (Manual) Eosinophils # (Manual) Basophils # (Manual) PT INR Fibrinogen dRVVT Confirm Interp Factor V Activity POC ABG pH POC ABG pCO2 POC ABG pO2 ABG pO2 ABG HCO3 ABG Base Excess ABG Hemoglobin Oxyhemoglobin Sodium Potassium Chloride Carbon Dioxide BUN Creatinine Glucose POC Glucose 119 H 108 H 109 H Lactic Acid Calcium Phosphorus Magnesium Direct Bilirubin AST ALT Alkaline Phosphatase Lactate Dehydrogenase Troponin T C-Reactive Protein Total Protein Albumin Prealbumin Triglycerides Cholesterol LDL Cholesterol Direct HDL Cholesterol Urine pH Urine WBC (Auto) Urine Creatinine Urine Total Protein Fluid Total Protein Vancomycin Trough Rheumatoid Factor Complement C4 Miscellaneous Test Crossmatch 10/22/16 10/22/16 10/22/16 06:40 06:40 06:40 WBC 14.0 H RBC 2.03 L Hgb 7.0 L Hct 20.5 L MCV 98 H MCH 34 H MCHC 35 H RDW 17.8 H Plt Count Lymph % (Auto) [place] % (Auto) 9.9 H Lymph # Trigg # 1.4 H Baso # 0.2 H Seg Neutrophils % 72.0 H Seg Neuts % (Manual) Lymphocytes % (Manual) Monocytes % (Manual) Eosinophils % (Manual) Basophils % (Manual) Nucleated RBC % Seg Neutrophils # 10.0 H Seg Neutrophils # Man Lymphocytes # (Manual) Monocytes # (Manual) Eosinophils # (Manual) Basophils # (Manual) PT INR Fibrinogen dRVVT Confirm Interp Factor V Activity POC ABG pH POC ABG pCO2 POC ABG pO2 ABG pO2 ABG HCO3 ABG Base Excess ABG Hemoglobin Oxyhemoglobin Sodium 130 L D Potassium Chloride 92.4 L Carbon Dioxide 20 L BUN 50 H Creatinine 1.6 H Glucose 589 H* POC Glucose Lactic Acid Calcium 7.8 L D Phosphorus Magnesium 1.60 L Direct Bilirubin AST ALT Alkaline Phosphatase Lactate Dehydrogenase Troponin T C-Reactive Protein Total Protein Albumin Prealbumin Triglycerides Cholesterol LDL Cholesterol Direct HDL Cholesterol Urine pH Urine WBC (Auto) Urine Creatinine Urine Total Protein Fluid Total Protein Vancomycin Trough Rheumatoid Factor Complement C4 Miscellaneous Test Crossmatch 10/22/16 10/22/16 10/22/16 11:39 16:44 23:36 WBC RBC Hgb Hct MCV MCH MCHC RDW Plt Count Lymph % (Auto) [place] % (Auto) Lymph # [place] # Baso # Seg Neutrophils % Seg Neuts % (Manual) Lymphocytes % (Manual) Monocytes % (Manual) Eosinophils % (Manual) Basophils % (Manual) Nucleated RBC % Seg Neutrophils # Seg Neutrophils # Man Lymphocytes # (Manual) Monocytes # (Manual) Eosinophils # (Manual) Basophils # (Manual) PT INR Fibrinogen dRVVT Confirm Interp Factor V Activity POC ABG pH POC ABG pCO2 POC ABG pO2 ABG pO2 ABG HCO3 ABG Base Excess ABG Hemoglobin Oxyhemoglobin Sodium Potassium Chloride Carbon Dioxide BUN Creatinine Glucose POC Glucose 142 H 163 H 123 H Lactic Acid Calcium Phosphorus Magnesium Direct Bilirubin AST ALT Alkaline Phosphatase Lactate Dehydrogenase Troponin T C-Reactive Protein Total Protein Albumin Prealbumin Triglycerides Cholesterol LDL Cholesterol Direct HDL Cholesterol Urine pH Urine WBC (Auto) Urine Creatinine Urine Total Protein Fluid Total Protein Vancomycin Trough Rheumatoid Factor Complement C4 Miscellaneous Test Crossmatch 10/23/16 10/23/16 10/23/16 04:58 06:00 12:12 WBC RBC Hgb Hct MCV MCH MCHC RDW Plt Count Lymph % (Auto) [place] % (Auto) Lymph # [place] # Baso # Seg Neutrophils % Seg Neuts % (Manual) Lymphocytes % (Manual) Monocytes % (Manual) Eosinophils % (Manual) Basophils % (Manual) Nucleated RBC % Seg Neutrophils # Seg Neutrophils # Man Lymphocytes # (Manual) Monocytes # (Manual) Eosinophils # (Manual) Basophils # (Manual) PT INR Fibrinogen dRVVT Confirm Interp Factor V Activity POC ABG pH POC ABG pCO2 POC ABG pO2 ABG pO2 ABG HCO3 ABG Base Excess ABG Hemoglobin Oxyhemoglobin Sodium 133 L Potassium 3.5 L Chloride 96.1 L Carbon Dioxide 18 L BUN 76 H Creatinine 2.1 H Glucose POC Glucose 133 H 138 H Lactic Acid Calcium 8.3 L Phosphorus Magnesium Direct Bilirubin AST ALT Alkaline Phosphatase Lactate Dehydrogenase Troponin T C-Reactive Protein Total Protein Albumin Prealbumin Triglycerides Cholesterol LDL Cholesterol Direct HDL Cholesterol Urine pH Urine WBC (Auto) Urine Creatinine Urine Total Protein Fluid Total Protein Vancomycin Trough Rheumatoid Factor Complement C4 Miscellaneous Test Crossmatch 10/23/16 10/23/16 10/24/16 16:53 23:37 04:00 WBC RBC Hgb Hct MCV MCH MCHC RDW Plt Count Lymph % (Auto) [place] % (Auto) Lymph # [place] # Baso # Seg Neutrophils % Seg Neuts % (Manual) Lymphocytes % (Manual) Monocytes % (Manual) Eosinophils % (Manual) Basophils % (Manual) Nucleated RBC % Seg Neutrophils # Seg Neutrophils # Man Lymphocytes # (Manual) Monocytes # (Manual) Eosinophils # (Manual) Basophils # (Manual) PT INR Fibrinogen dRVVT Confirm Interp Factor V Activity POC ABG pH POC ABG pCO2 POC ABG pO2 ABG pO2 ABG HCO3 ABG Base Excess ABG Hemoglobin Oxyhemoglobin Sodium 131 L Potassium Chloride 94.5 L Carbon Dioxide 19 L BUN 97 H Creatinine 2.6 H Glucose 110 H POC Glucose 125 H 123 H Lactic Acid Calcium 8.3 L Phosphorus Magnesium Direct Bilirubin AST ALT Alkaline Phosphatase Lactate Dehydrogenase Troponin T C-Reactive Protein Total Protein Albumin Prealbumin Triglycerides Cholesterol LDL Cholesterol Direct HDL Cholesterol Urine pH Urine WBC (Auto) Urine Creatinine Urine Total Protein Fluid Total Protein Vancomycin Trough Rheumatoid Factor Complement C4 Miscellaneous Test Crossmatch 10/24/16 10/24/16 10/24/16 07:49 11:39 17:52 WBC RBC Hgb 6.0 L Hct 19.7 L* MCV MCH MCHC RDW Plt Count Lymph % (Auto) [place] % (Auto) Lymph # [place]igg # Baso # Seg Neutrophils % Seg Neuts % (Manual) Lymphocytes % (Manual) Monocytes % (Manual) Eosinophils % (Manual) Basophils % (Manual) Nucleated RBC % Seg Neutrophils # Seg Neutrophils # Man Lymphocytes # (Manual) Monocytes # (Manual) Eosinophils # (Manual) Basophils # (Manual) PT INR Fibrinogen dRVVT Confirm Interp Factor V Activity POC ABG pH POC ABG pCO2 POC ABG pO2 ABG pO2 ABG HCO3 ABG Base Excess ABG Hemoglobin Oxyhemoglobin Sodium Potassium Chloride Carbon Dioxide BUN Creatinine Glucose POC Glucose 106 H 158 H Lactic Acid Calcium Phosphorus Magnesium Direct Bilirubin AST ALT Alkaline Phosphatase Lactate Dehydrogenase Troponin T C-Reactive Protein Total Protein Albumin Prealbumin Triglycerides Cholesterol LDL Cholesterol Direct HDL Cholesterol Urine pH Urine WBC (Auto) Urine Creatinine Urine Total Protein Fluid Total Protein Vancomycin Trough Rheumatoid Factor Complement C4 Miscellaneous Test Crossmatch 10/24/16 10/24/16 10/24/16 20:00 22:27 Unknown WBC RBC Hgb 9.4 L D Hct 27.5 L D MCV MCH MCHC RDW Plt Count Lymph % (Auto) [place] % (Auto) Lymph # [place]igg # Baso # Seg Neutrophils % Seg Neuts % (Manual) Lymphocytes % (Manual) Monocytes % (Manual) Eosinophils % (Manual) Basophils % (Manual) Nucleated RBC % Seg Neutrophils # Seg Neutrophils # Man Lymphocytes # (Manual) Monocytes # (Manual) Eosinophils # (Manual) Basophils # (Manual) PT INR Fibrinogen dRVVT Confirm Interp Factor V Activity POC ABG pH POC ABG pCO2 POC ABG pO2 ABG pO2 ABG HCO3 ABG Base Excess ABG Hemoglobin Oxyhemoglobin Sodium Potassium Chloride Carbon Dioxide BUN Creatinine Glucose POC Glucose 125 H Lactic Acid Calcium Phosphorus Magnesium Direct Bilirubin AST ALT Alkaline Phosphatase Lactate Dehydrogenase Troponin T C-Reactive Protein Total Protein Albumin Prealbumin Triglycerides Cholesterol LDL Cholesterol Direct HDL Cholesterol Urine pH Urine WBC (Auto) Urine Creatinine Urine Total Protein Fluid Total Protein Vancomycin Trough Rheumatoid Factor Complement C4 Miscellaneous Test Crossmatch See Detail 10/25/16 10/25/16 10/25/16 04:00 04:00 04:00 WBC 14.2 H RBC 2.98 L Hgb 9.0 L Hct 26.2 L MCV MCH MCHC RDW 16.6 H Plt Count Lymph % (Auto) Trigg % (Auto) 10.7 H Lymph # Trigg # 1.5 H Baso # Seg Neutrophils % 73.6 H Seg Neuts % (Manual) Lymphocytes % (Manual) Monocytes % (Manual) Eosinophils % (Manual) Basophils % (Manual) Nucleated RBC % Seg Neutrophils # 10.5 H Seg Neutrophils # Man Lymphocytes # (Manual) Monocytes # (Manual) Eosinophils # (Manual) Basophils # (Manual) PT INR Fibrinogen dRVVT Confirm Interp Factor V Activity POC ABG pH POC ABG pCO2 POC ABG pO2 ABG pO2 ABG HCO3 ABG Base Excess ABG Hemoglobin Oxyhemoglobin Sodium 132 L Potassium Chloride 94.7 L Carbon Dioxide BUN 51 H Creatinine 1.6 H Glucose 130 H POC Glucose Lactic Acid Calcium 8.3 L Phosphorus 1.60 L D Magnesium Direct Bilirubin AST ALT Alkaline Phosphatase Lactate Dehydrogenase Troponin T C-Reactive Protein Total Protein Albumin Prealbumin Triglycerides Cholesterol LDL Cholesterol Direct HDL Cholesterol Urine pH Urine WBC (Auto) Urine Creatinine Urine Total Protein Fluid Total Protein Vancomycin Trough Rheumatoid Factor Complement C4 Miscellaneous Test Crossmatch 10/25/16 10/25/16 10/25/16 04:32 11:48 17:22 WBC RBC Hgb Hct MCV MCH MCHC RDW Plt Count Lymph % (Auto) [place] % (Auto) Lymph # Trigg # Baso # Seg Neutrophils % Seg Neuts % (Manual) Lymphocytes % (Manual) Monocytes % (Manual) Eosinophils % (Manual) Basophils % (Manual) Nucleated RBC % Seg Neutrophils # Seg Neutrophils # Man Lymphocytes # (Manual) Monocytes # (Manual) Eosinophils # (Manual) Basophils # (Manual) PT INR Fibrinogen dRVVT Confirm Interp Factor V Activity POC ABG pH POC ABG pCO2 POC ABG pO2 ABG pO2 ABG HCO3 ABG Base Excess ABG Hemoglobin Oxyhemoglobin Sodium Potassium Chloride Carbon Dioxide BUN Creatinine Glucose POC Glucose 124 H 171 H 120 H Lactic Acid Calcium Phosphorus Magnesium Direct Bilirubin AST ALT Alkaline Phosphatase Lactate Dehydrogenase Troponin T C-Reactive Protein Total Protein Albumin Prealbumin Triglycerides Cholesterol LDL Cholesterol Direct HDL Cholesterol Urine pH Urine WBC (Auto) Urine Creatinine Urine Total Protein Fluid Total Protein Vancomycin Trough Rheumatoid Factor Complement C4 Miscellaneous Test Crossmatch 10/26/16 10/26/16 10/26/16 04:54 07:06 07:06 WBC 16.9 H RBC 3.06 L Hgb 9.1 L Hct 26.9 L MCV MCH MCHC RDW 16.9 H Plt Count Lymph % (Auto) [place] % (Auto) Lymph # Tr[place] # Baso # Seg Neutrophils % Seg Neuts % (Manual) 71.0 H Lymphocytes % (Manual) 5.0 L Monocytes % (Manual) 12.0 H Eosinophils % (Manual) Basophils % (Manual) Nucleated RBC % Seg Neutrophils # Seg Neutrophils # Man 12.0 H Lymphocytes # (Manual) 0.8 L Monocytes # (Manual) 2.0 H Eosinophils # (Manual) Basophils # (Manual) PT INR Fibrinogen dRVVT Confirm Interp Factor V Activity POC ABG pH POC ABG pCO2 POC ABG pO2 ABG pO2 ABG HCO3 ABG Base Excess ABG Hemoglobin Oxyhemoglobin Sodium 135 L Potassium Chloride 97.1 L Carbon Dioxide BUN 73 H Creatinine 2.2 H Glucose 117 H POC Glucose 123 H Lactic Acid Calcium Phosphorus 1.70 L Magnesium Direct Bilirubin AST ALT Alkaline Phosphatase Lactate Dehydrogenase Troponin T C-Reactive Protein Total Protein Albumin Prealbumin Triglycerides Cholesterol LDL Cholesterol Direct HDL Cholesterol Urine pH Urine WBC (Auto) Urine Creatinine Urine Total Protein Fluid Total Protein Vancomycin Trough Rheumatoid Factor Complement C4 Miscellaneous Test Crossmatch 10/26/16 10/26/16 10/26/16 12:12 17:29 23:42 WBC RBC Hgb Hct MCV MCH MCHC RDW Plt Count Lymph % (Auto) [place] % (Auto) Lymph # [place] # Baso # Seg Neutrophils % Seg Neuts % (Manual) Lymphocytes % (Manual) Monocytes % (Manual) Eosinophils % (Manual) Basophils % (Manual) Nucleated RBC % Seg Neutrophils # Seg Neutrophils # Man Lymphocytes # (Manual) Monocytes # (Manual) Eosinophils # (Manual) Basophils # (Manual) PT INR Fibrinogen dRVVT Confirm Interp Factor V Activity POC ABG pH POC ABG pCO2 POC ABG pO2 ABG pO2 ABG HCO3 ABG Base Excess ABG Hemoglobin Oxyhemoglobin Sodium Potassium Chloride Carbon Dioxide BUN Creatinine Glucose POC Glucose 126 H 161 H 118 H Lactic Acid Calcium Phosphorus Magnesium Direct Bilirubin AST ALT Alkaline Phosphatase Lactate Dehydrogenase Troponin T C-Reactive Protein Total Protein Albumin Prealbumin Triglycerides Cholesterol LDL Cholesterol Direct HDL Cholesterol Urine pH Urine WBC (Auto) Urine Creatinine Urine Total Protein Fluid Total Protein Vancomycin Trough Rheumatoid Factor Complement C4 Miscellaneous Test Crossmatch 10/27/16 10/27/16 10/27/16 05:03 06:30 06:30 WBC 13.9 H RBC 3.09 L Hgb 9.2 L Hct 27.5 L MCV MCH MCHC RDW 17.0 H Plt Count Lymph % (Auto) [place] % (Auto) Lymph # [place] # Baso # Seg Neutrophils % Seg Neuts % (Manual) 78.0 H Lymphocytes % (Manual) Monocytes % (Manual) Eosinophils % (Manual) Basophils % (Manual) Nucleated RBC % 2.0 H Seg Neutrophils # Seg Neutrophils # Man 10.8 H Lymphocytes # (Manual) Monocytes # (Manual) 1.0 H Eosinophils # (Manual) Basophils # (Manual) PT INR Fibrinogen dRVVT Confirm Interp Factor V Activity POC ABG pH POC ABG pCO2 POC ABG pO2 ABG pO2 ABG HCO3 ABG Base Excess ABG Hemoglobin Oxyhemoglobin Sodium Potassium Chloride Carbon Dioxide BUN 40 H Creatinine 1.5 H Glucose 135 H POC Glucose 107 H Lactic Acid Calcium 8.3 L Phosphorus 1.30 L D Magnesium Direct Bilirubin AST ALT Alkaline Phosphatase Lactate Dehydrogenase Troponin T C-Reactive Protein Total Protein Albumin Prealbumin Triglycerides Cholesterol LDL Cholesterol Direct HDL Cholesterol Urine pH Urine WBC (Auto) Urine Creatinine Urine Total Protein Fluid Total Protein Vancomycin Trough Rheumatoid Factor Complement C4 Miscellaneous Test Crossmatch 10/27/16 10/27/16 10/27/16 13:27 18:07 23:40 WBC RBC Hgb Hct MCV MCH MCHC RDW Plt Count Lymph % (Auto) [place] % (Auto) Lymph # [place] # Baso # Seg Neutrophils % Seg Neuts % (Manual) Lymphocytes % (Manual) Monocytes % (Manual) Eosinophils % (Manual) Basophils % (Manual) Nucleated RBC % Seg Neutrophils # Seg Neutrophils # Man Lymphocytes # (Manual) Monocytes # (Manual) Eosinophils # (Manual) Basophils # (Manual) PT INR Fibrinogen dRVVT Confirm Interp Factor V Activity POC ABG pH POC ABG pCO2 POC ABG pO2 ABG pO2 ABG HCO3 ABG Base Excess ABG Hemoglobin Oxyhemoglobin Sodium Potassium Chloride Carbon Dioxide BUN Creatinine Glucose POC Glucose 117 H 121 H 118 H Lactic Acid Calcium Phosphorus Magnesium Direct Bilirubin AST ALT Alkaline Phosphatase Lactate Dehydrogenase Troponin T C-Reactive Protein Total Protein Albumin Prealbumin Triglycerides Cholesterol LDL Cholesterol Direct HDL Cholesterol Urine pH Urine WBC (Auto) Urine Creatinine Urine Total Protein Fluid Total Protein Vancomycin Trough Rheumatoid Factor Complement C4 Miscellaneous Test Crossmatch 10/28/16 10/28/16 10/28/16 05:48 06:45 06:45 WBC 14.7 H RBC 3.05 L Hgb 9.0 L Hct 26.9 L MCV MCH MCHC RDW 16.8 H Plt Count Lymph % (Auto) 8.2 L [place] % (Auto) 8.4 H Lymph # [place]igg # 1.2 H Baso # Seg Neutrophils % 81.9 H Seg Neuts % (Manual) Lymphocytes % (Manual) Monocytes % (Manual) Eosinophils % (Manual) Basophils % (Manual) Nucleated RBC % Seg Neutrophils # 12.1 H Seg Neutrophils # Man Lymphocytes # (Manual) Monocytes # (Manual) Eosinophils # (Manual) Basophils # (Manual) PT INR Fibrinogen dRVVT Confirm Interp Factor V Activity POC ABG pH POC ABG pCO2 POC ABG pO2 ABG pO2 ABG HCO3 ABG Base Excess ABG Hemoglobin Oxyhemoglobin Sodium Potassium Chloride Carbon Dioxide BUN 60 H Creatinine 1.9 H Glucose 120 H POC Glucose 114 H Lactic Acid Calcium Phosphorus Magnesium Direct Bilirubin AST ALT Alkaline Phosphatase Lactate Dehydrogenase Troponin T C-Reactive Protein Total Protein Albumin Prealbumin Triglycerides Cholesterol LDL Cholesterol Direct HDL Cholesterol Urine pH Urine WBC (Auto) Urine Creatinine Urine Total Protein Fluid Total Protein Vancomycin Trough Rheumatoid Factor Complement C4 Miscellaneous Test Crossmatch 10/28/16 10/28/16 10/29/16 17:08 23:50 05:10 WBC RBC Hgb Hct MCV MCH MCHC RDW Plt Count Lymph % (Auto) [place] % (Auto) Lymph # [place] # Baso # Seg Neutrophils % Seg Neuts % (Manual) Lymphocytes % (Manual) Monocytes % (Manual) Eosinophils % (Manual) Basophils % (Manual) Nucleated RBC % Seg Neutrophils # Seg Neutrophils # Man Lymphocytes # (Manual) Monocytes # (Manual) Eosinophils # (Manual) Basophils # (Manual) PT INR Fibrinogen dRVVT Confirm Interp Factor V Activity POC ABG pH POC ABG pCO2 POC ABG pO2 ABG pO2 ABG HCO3 ABG Base Excess ABG Hemoglobin Oxyhemoglobin Sodium Potassium Chloride Carbon Dioxide BUN Creatinine Glucose POC Glucose 109 H 110 H 124 H Lactic Acid Calcium Phosphorus Magnesium Direct Bilirubin AST ALT Alkaline Phosphatase Lactate Dehydrogenase Troponin T C-Reactive Protein Total Protein Albumin Prealbumin Triglycerides Cholesterol LDL Cholesterol Direct HDL Cholesterol Urine pH Urine WBC (Auto) Urine Creatinine Urine Total Protein Fluid Total Protein Vancomycin Trough Rheumatoid Factor Complement C4 Miscellaneous Test Crossmatch 10/29/16 10/29/16 10/29/16 07:45 07:45 12:19 WBC 14.7 H RBC 3.15 L Hgb 9.3 L Hct 28.9 L MCV MCH MCHC RDW 17.0 H Plt Count Lymph % (Auto) 11.9 L [place] % (Auto) 8.6 H Lymph # Trigg # 1.3 H Baso # Seg Neutrophils % 78.1 H Seg Neuts % (Manual) Lymphocytes % (Manual) Monocytes % (Manual) Eosinophils % (Manual) Basophils % (Manual) Nucleated RBC % Seg Neutrophils # 11.4 H Seg Neutrophils # Man Lymphocytes # (Manual) Monocytes # (Manual) Eosinophils # (Manual) Basophils # (Manual) PT INR Fibrinogen dRVVT Confirm Interp Factor V Activity POC ABG pH POC ABG pCO2 POC ABG pO2 ABG pO2 ABG HCO3 ABG Base Excess ABG Hemoglobin Oxyhemoglobin Sodium Potassium 5.1 H Chloride Carbon Dioxide 19 L BUN 78 H Creatinine 2.2 H Glucose 116 H POC Glucose 118 H Lactic Acid Calcium Phosphorus Magnesium Direct Bilirubin AST ALT Alkaline Phosphatase Lactate Dehydrogenase Troponin T C-Reactive Protein Total Protein Albumin Prealbumin Triglycerides Cholesterol LDL Cholesterol Direct HDL Cholesterol Urine pH Urine WBC (Auto) Urine Creatinine Urine Total Protein Fluid Total Protein Vancomycin Trough Rheumatoid Factor Complement C4 Miscellaneous Test Crossmatch 10/29/16 10/30/16 10/30/16 17:49 01:52 03:28 WBC RBC Hgb Hct MCV MCH MCHC RDW Plt Count Lymph % (Auto) [place] % (Auto) Lymph # [place] # Baso # Seg Neutrophils % Seg Neuts % (Manual) Lymphocytes % (Manual) Monocytes % (Manual) Eosinophils % (Manual) Basophils % (Manual) Nucleated RBC % Seg Neutrophils # Seg Neutrophils # Man Lymphocytes # (Manual) Monocytes # (Manual) Eosinophils # (Manual) Basophils # (Manual) PT INR Fibrinogen dRVVT Confirm Interp Factor V Activity POC ABG pH POC ABG pCO2 POC ABG pO2 ABG pO2 ABG HCO3 ABG Base Excess ABG Hemoglobin Oxyhemoglobin Sodium Potassium 5.4 H Chloride 97.5 L Carbon Dioxide 19 L BUN 90 H Creatinine 2.5 H Glucose POC Glucose 120 H 129 H Lactic Acid Calcium Phosphorus 5.20 H Magnesium Direct Bilirubin AST ALT Alkaline Phosphatase Lactate Dehydrogenase Troponin T C-Reactive Protein Total Protein Albumin Prealbumin Triglycerides Cholesterol LDL Cholesterol Direct HDL Cholesterol Urine pH Urine WBC (Auto) Urine Creatinine Urine Total Protein Fluid Total Protein Vancomycin Trough Rheumatoid Factor Complement C4 Miscellaneous Test Crossmatch 10/30/16 10/30/1617 03:28 08:19 08:19 WBC 11.6 H 15.9 H RBC 2.75 L 2.82 L Hgb 7.9 L 8.3 L Hct 24.2 L 25.2 L MCV MCH MCHC RDW 16.7 H 17.2 H Plt Count Lymph % (Auto) [place] % (Auto) 9.8 H Lymph # [place]igg # 1.1 H Baso # Seg Neutrophils % 74.2 H Seg Neuts % (Manual) Lymphocytes % (Manual) Monocytes % (Manual) Eosinophils % (Manual) Basophils % (Manual) Nucleated RBC % Seg Neutrophils # 8.6 H Seg Neutrophils # Man Lymphocytes # (Manual) Monocytes # (Manual) Eosinophils # (Manual) Basophils # (Manual) PT INR Fibrinogen dRVVT Confirm Interp Factor V Activity POC ABG pH POC ABG pCO2 POC ABG pO2 ABG pO2 ABG HCO3 ABG Base Excess ABG Hemoglobin Oxyhemoglobin Sodium Potassium 5.3 H Chloride 97.4 L Carbon Dioxide 19 L BUN 93 H Creatinine 2.6 H Glucose POC Glucose Lactic Acid Calcium Phosphorus Magnesium Direct Bilirubin AST ALT Alkaline Phosphatase Lactate Dehydrogenase Troponin T C-Reactive Protein Total Protein Albumin Prealbumin Triglycerides Cholesterol LDL Cholesterol Direct HDL Cholesterol Urine pH Urine WBC (Auto) Urine Creatinine Urine Total Protein Fluid Total Protein Vancomycin Trough Rheumatoid Factor Complement C4 Miscellaneous Test Crossmatch 10/30/16 10/30/16 10/31/16 17:11 23:56 00:40 WBC RBC Hgb Hct MCV MCH MCHC RDW Plt Count Lymph % (Auto) [place] % (Auto) Lymph # [place] # Baso # Seg Neutrophils % Seg Neuts % (Manual) Lymphocytes % (Manual) Monocytes % (Manual) Eosinophils % (Manual) Basophils % (Manual) Nucleated RBC % Seg Neutrophils # Seg Neutrophils # Man Lymphocytes # (Manual) Monocytes # (Manual) Eosinophils # (Manual) Basophils # (Manual) PT INR Fibrinogen dRVVT Confirm Interp Factor V Activity POC ABG pH POC ABG pCO2 POC ABG pO2 ABG pO2 ABG HCO3 ABG Base Excess ABG Hemoglobin Oxyhemoglobin Sodium Potassium Chloride Carbon Dioxide BUN Creatinine Glucose POC Glucose 106 H 117 H 120 H Lactic Acid Calcium Phosphorus Magnesium Direct Bilirubin AST ALT Alkaline Phosphatase Lactate Dehydrogenase Troponin T C-Reactive Protein Total Protein Albumin Prealbumin Triglycerides Cholesterol LDL Cholesterol Direct HDL Cholesterol Urine pH Urine WBC (Auto) Urine Creatinine Urine Total Protein Fluid Total Protein Vancomycin Trough Rheumatoid Factor Complement C4 Miscellaneous Test Crossmatch 10/31/16 10/31/16 10/31/16 05:43 07:15 07:15 WBC 12.1 H RBC 2.63 L Hgb 7.7 L Hct 23.3 L MCV MCH MCHC RDW 16.7 H Plt Count Lymph % (Auto) 11.7 L [place] % (Auto) 7.7 H Lymph # [place] # 0.9 H Baso # Seg Neutrophils % 78.0 H Seg Neuts % (Manual) Lymphocytes % (Manual) Monocytes % (Manual) Eosinophils % (Manual) Basophils % (Manual) Nucleated RBC % Seg Neutrophils # 9.4 H Seg Neutrophils # Man Lymphocytes # (Manual) Monocytes # (Manual) Eosinophils # (Manual) Basophils # (Manual) PT INR Fibrinogen dRVVT Confirm Interp Factor V Activity POC ABG pH POC ABG pCO2 POC ABG pO2 ABG pO2 ABG HCO3 ABG Base Excess ABG Hemoglobin Oxyhemoglobin Sodium Potassium Chloride 96.4 L Carbon Dioxide 21 L BUN 99 H Creatinine 2.6 H Glucose 144 H POC Glucose 125 H Lactic Acid Calcium Phosphorus 4.80 H Magnesium Direct Bilirubin AST ALT Alkaline Phosphatase Lactate Dehydrogenase Troponin T C-Reactive Protein Total Protein Albumin Prealbumin Triglycerides Cholesterol LDL Cholesterol Direct HDL Cholesterol Urine pH Urine WBC (Auto) Urine Creatinine Urine Total Protein Fluid Total Protein Vancomycin Trough Rheumatoid Factor Complement C4 Miscellaneous Test Crossmatch 10/31/16 10/31/16 11/01/16 11:46 18:34 00:20 WBC RBC Hgb Hct MCV MCH MCHC RDW Plt Count Lymph % (Auto) [place] % (Auto) Lymph # [place] # Baso # Seg Neutrophils % Seg Neuts % (Manual) Lymphocytes % (Manual) Monocytes % (Manual) Eosinophils % (Manual) Basophils % (Manual) Nucleated RBC % Seg Neutrophils # Seg Neutrophils # Man Lymphocytes # (Manual) Monocytes # (Manual) Eosinophils # (Manual) Basophils # (Manual) PT INR Fibrinogen dRVVT Confirm Interp Factor V Activity POC ABG pH POC ABG pCO2 POC ABG pO2 ABG pO2 ABG HCO3 ABG Base Excess ABG Hemoglobin Oxyhemoglobin Sodium Potassium Chloride Carbon Dioxide BUN Creatinine Glucose POC Glucose 159 H 140 H 132 H Lactic Acid Calcium Phosphorus Magnesium Direct Bilirubin AST ALT Alkaline Phosphatase Lactate Dehydrogenase Troponin T C-Reactive Protein Total Protein Albumin Prealbumin Triglycerides Cholesterol LDL Cholesterol Direct HDL Cholesterol Urine pH Urine WBC (Auto) Urine Creatinine Urine Total Protein Fluid Total Protein Vancomycin Trough Rheumatoid Factor Complement C4 Miscellaneous Test Crossmatch 11/01/16 11/01/16 11/01/16 04:55 04:55 06:11 WBC 11.2 H RBC 2.68 L Hgb 7.5 L Hct 23.7 L MCV MCH MCHC RDW 16.1 H Plt Count Lymph % (Auto) [place] % (Auto) 9.8 H Lymph # [place]igg # 1.1 H Baso # Seg Neutrophils % 70.8 H Seg Neuts % (Manual) Lymphocytes % (Manual) Monocytes % (Manual) Eosinophils % (Manual) Basophils % (Manual) Nucleated RBC % Seg Neutrophils # 7.9 H Seg Neutrophils # Man Lymphocytes # (Manual) Monocytes # (Manual) Eosinophils # (Manual) Basophils # (Manual) PT INR Fibrinogen dRVVT Confirm Interp Factor V Activity POC ABG pH POC ABG pCO2 POC ABG pO2 ABG pO2 ABG HCO3 ABG Base Excess ABG Hemoglobin Oxyhemoglobin Sodium Potassium 3.3 L D Chloride Carbon Dioxide BUN 61 H Creatinine 1.9 H Glucose 114 H POC Glucose 115 H Lactic Acid Calcium Phosphorus 1.80 L D Magnesium Direct Bilirubin AST ALT Alkaline Phosphatase Lactate Dehydrogenase Troponin T C-Reactive Protein Total Protein Albumin Prealbumin Triglycerides Cholesterol LDL Cholesterol Direct HDL Cholesterol Urine pH Urine WBC (Auto) Urine Creatinine Urine Total Protein Fluid Total Protein Vancomycin Trough Rheumatoid Factor Complement C4 Miscellaneous Test Crossmatch 11/01/16 11/01/16 11/01/16 12:29 18:23 23:58 WBC RBC Hgb Hct MCV MCH MCHC RDW Plt Count Lymph % (Auto) [place] % (Auto) Lymph # [place] # Baso # Seg Neutrophils % Seg Neuts % (Manual) Lymphocytes % (Manual) Monocytes % (Manual) Eosinophils % (Manual) Basophils % (Manual) Nucleated RBC % Seg Neutrophils # Seg Neutrophils # Man Lymphocytes # (Manual) Monocytes # (Manual) Eosinophils # (Manual) Basophils # (Manual) PT INR Fibrinogen dRVVT Confirm Interp Factor V Activity POC ABG pH POC ABG pCO2 POC ABG pO2 ABG pO2 ABG HCO3 ABG Base Excess ABG Hemoglobin Oxyhemoglobin Sodium Potassium Chloride Carbon Dioxide BUN Creatinine Glucose POC Glucose 142 H 143 H 128 H Lactic Acid Calcium Phosphorus Magnesium Direct Bilirubin AST ALT Alkaline Phosphatase Lactate Dehydrogenase Troponin T C-Reactive Protein Total Protein Albumin Prealbumin Triglycerides Cholesterol LDL Cholesterol Direct HDL Cholesterol Urine pH Urine WBC (Auto) Urine Creatinine Urine Total Protein Fluid Total Protein Vancomycin Trough Rheumatoid Factor Complement C4 Miscellaneous Test Crossmatch 11/02/16 11/02/16 11/02/16 04:16 05:29 11:58 WBC RBC Hgb Hct MCV MCH MCHC RDW Plt Count Lymph % (Auto) [place] % (Auto) Lymph # [place] # Baso # Seg Neutrophils % Seg Neuts % (Manual) Lymphocytes % (Manual) Monocytes % (Manual) Eosinophils % (Manual) Basophils % (Manual) Nucleated RBC % Seg Neutrophils # Seg Neutrophils # Man Lymphocytes # (Manual) Monocytes # (Manual) Eosinophils # (Manual) Basophils # (Manual) PT INR Fibrinogen dRVVT Confirm Interp Factor V Activity POC ABG pH POC ABG pCO2 POC ABG pO2 ABG pO2 ABG HCO3 ABG Base Excess ABG Hemoglobin Oxyhemoglobin Sodium Potassium 3.1 L Chloride Carbon Dioxide BUN 73 H Creatinine 2.3 H Glucose 112 H POC Glucose 135 H 149 H Lactic Acid Calcium Phosphorus Magnesium Direct Bilirubin AST ALT Alkaline Phosphatase Lactate Dehydrogenase Troponin T C-Reactive Protein Total Protein Albumin Prealbumin Triglycerides Cholesterol LDL Cholesterol Direct HDL Cholesterol Urine pH Urine WBC (Auto) Urine Creatinine Urine Total Protein Fluid Total Protein Vancomycin Trough Rheumatoid Factor Complement C4 Miscellaneous Test Crossmatch 11/02/16 11/02/16 11/03/16 17:42 22:54 06:00 WBC RBC Hgb Hct MCV MCH MCHC RDW Plt Count Lymph % (Auto) [place] % (Auto) Lymph # [place] # Baso # Seg Neutrophils % Seg Neuts % (Manual) Lymphocytes % (Manual) Monocytes % (Manual) Eosinophils % (Manual) Basophils % (Manual) Nucleated RBC % Seg Neutrophils # Seg Neutrophils # Man Lymphocytes # (Manual) Monocytes # (Manual) Eosinophils # (Manual) Basophils # (Manual) PT INR Fibrinogen dRVVT Confirm Interp Factor V Activity POC ABG pH POC ABG pCO2 POC ABG pO2 ABG pO2 ABG HCO3 ABG Base Excess ABG Hemoglobin Oxyhemoglobin Sodium Potassium Chloride 96.7 L Carbon Dioxide BUN 41 H Creatinine 1.5 H Glucose 145 H POC Glucose 182 H 115 H Lactic Acid Calcium Phosphorus 1.60 L D Magnesium 1.50 L Direct Bilirubin AST ALT Alkaline Phosphatase Lactate Dehydrogenase Troponin T C-Reactive Protein Total Protein Albumin Prealbumin Triglycerides Cholesterol LDL Cholesterol Direct HDL Cholesterol Urine pH Urine WBC (Auto) Urine Creatinine Urine Total Protein Fluid Total Protein Vancomycin Trough Rheumatoid Factor Complement C4 Miscellaneous Test Crossmatch 11/03/16 11/03/16 11/03/16 11:53 17:45 23:37 WBC RBC Hgb Hct MCV MCH MCHC RDW Plt Count Lymph % (Auto) [place] % (Auto) Lymph # [place] # Baso # Seg Neutrophils % Seg Neuts % (Manual) Lymphocytes % (Manual) Monocytes % (Manual) Eosinophils % (Manual) Basophils % (Manual) Nucleated RBC % Seg Neutrophils # Seg Neutrophils # Man Lymphocytes # (Manual) Monocytes # (Manual) Eosinophils # (Manual) Basophils # (Manual) PT INR Fibrinogen dRVVT Confirm Interp Factor V Activity POC ABG pH POC ABG pCO2 POC ABG pO2 ABG pO2 ABG HCO3 ABG Base Excess ABG Hemoglobin Oxyhemoglobin Sodium Potassium Chloride Carbon Dioxide BUN Creatinine Glucose POC Glucose 131 H 134 H 113 H Lactic Acid Calcium Phosphorus Magnesium Direct Bilirubin AST ALT Alkaline Phosphatase Lactate Dehydrogenase Troponin T C-Reactive Protein Total Protein Albumin Prealbumin Triglycerides Cholesterol LDL Cholesterol Direct HDL Cholesterol Urine pH Urine WBC (Auto) Urine Creatinine Urine Total Protein Fluid Total Protein Vancomycin Trough Rheumatoid Factor Complement C4 Miscellaneous Test Crossmatch 11/04/16 11/04/16 11/04/16 05:41 06:00 12:10 WBC RBC Hgb Hct MCV MCH MCHC RDW Plt Count Lymph % (Auto) [place] % (Auto) Lymph # [place] # Baso # Seg Neutrophils % Seg Neuts % (Manual) Lymphocytes % (Manual) Monocytes % (Manual) Eosinophils % (Manual) Basophils % (Manual) Nucleated RBC % Seg Neutrophils # Seg Neutrophils # Man Lymphocytes # (Manual) Monocytes # (Manual) Eosinophils # (Manual) Basophils # (Manual) PT INR Fibrinogen dRVVT Confirm Interp Factor V Activity POC ABG pH POC ABG pCO2 POC ABG pO2 ABG pO2 ABG HCO3 ABG Base Excess ABG Hemoglobin Oxyhemoglobin Sodium Potassium Chloride 96.7 L Carbon Dioxide BUN 52 H Creatinine 1.9 H Glucose 126 H POC Glucose 137 H 191 H Lactic Acid Calcium Phosphorus Magnesium Direct Bilirubin AST ALT Alkaline Phosphatase Lactate Dehydrogenase Troponin T C-Reactive Protein Total Protein Albumin Prealbumin Triglycerides Cholesterol LDL Cholesterol Direct HDL Cholesterol Urine pH Urine WBC (Auto) Urine Creatinine Urine Total Protein Fluid Total Protein Vancomycin Trough Rheumatoid Factor Complement C4 Miscellaneous Test Crossmatch 11/04/16 11/05/16 11/05/16 22:57 03:10 05:10 WBC RBC Hgb Hct MCV MCH MCHC RDW Plt Count Lymph % (Auto) [place] % (Auto) Lymph # [place] # Baso # Seg Neutrophils % Seg Neuts % (Manual) Lymphocytes % (Manual) Monocytes % (Manual) Eosinophils % (Manual) Basophils % (Manual) Nucleated RBC % Seg Neutrophils # Seg Neutrophils # Man Lymphocytes # (Manual) Monocytes # (Manual) Eosinophils # (Manual) Basophils # (Manual) PT INR Fibrinogen dRVVT Confirm Interp Factor V Activity POC ABG pH POC ABG pCO2 POC ABG pO2 ABG pO2 ABG HCO3 ABG Base Excess ABG Hemoglobin Oxyhemoglobin Sodium 136 L Potassium Chloride 97.2 L Carbon Dioxide BUN 32 H Creatinine 1.3 H Glucose 123 H POC Glucose 125 H 108 H Lactic Acid Calcium 7.8 L Phosphorus Magnesium Direct Bilirubin AST ALT Alkaline Phosphatase Lactate Dehydrogenase Troponin T C-Reactive Protein Total Protein Albumin Prealbumin Triglycerides Cholesterol LDL Cholesterol Direct HDL Cholesterol Urine pH Urine WBC (Auto) Urine Creatinine Urine Total Protein Fluid Total Protein Vancomycin Trough Rheumatoid Factor Complement C4 Miscellaneous Test Crossmatch 11/05/16 11/05/16 11/05/16 12:23 13:09 13:25 WBC RBC Hgb Hct MCV MCH MCHC RDW Plt Count Lymph % (Auto) [place] % (Auto) Lymph # [place] # Baso # Seg Neutrophils % Seg Neuts % (Manual) Lymphocytes % (Manual) Monocytes % (Manual) Eosinophils % (Manual) Basophils % (Manual) Nucleated RBC % Seg Neutrophils # Seg Neutrophils # Man Lymphocytes # (Manual) Monocytes # (Manual) Eosinophils # (Manual) Basophils # (Manual) PT INR Fibrinogen dRVVT Confirm Interp Factor V Activity POC ABG pH POC ABG pCO2 POC ABG pO2 ABG pO2 ABG HCO3 ABG Base Excess ABG Hemoglobin Oxyhemoglobin Sodium Potassium Chloride Carbon Dioxide BUN Creatinine Glucose POC Glucose 124 H Lactic Acid Calcium Phosphorus Magnesium Direct Bilirubin AST ALT Alkaline Phosphatase Lactate Dehydrogenase Troponin T C-Reactive Protein 11.40 H Total Protein Albumin Prealbumin Triglycerides Cholesterol LDL Cholesterol Direct HDL Cholesterol Urine pH 9.0 H Urine WBC (Auto) Urine Creatinine Urine Total Protein Fluid Total Protein Vancomycin Trough Rheumatoid Factor Complement C4 Miscellaneous Test Crossmatch 11/05/16 11/05/16 11/05/16 13:25 17:54 23:42 WBC RBC Hgb Hct MCV MCH MCHC RDW Plt Count Lymph % (Auto) [place] % (Auto) Lymph # Trigg # Baso # Seg Neutrophils % Seg Neuts % (Manual) Lymphocytes % (Manual) Monocytes % (Manual) Eosinophils % (Manual) Basophils % (Manual) Nucleated RBC % Seg Neutrophils # Seg Neutrophils # Man Lymphocytes # (Manual) Monocytes # (Manual) Eosinophils # (Manual) Basophils # (Manual) PT INR Fibrinogen dRVVT Confirm Interp Factor V Activity POC ABG pH POC ABG pCO2 POC ABG pO2 ABG pO2 ABG HCO3 ABG Base Excess ABG Hemoglobin Oxyhemoglobin Sodium Potassium Chloride Carbon Dioxide BUN Creatinine Glucose POC Glucose 114 H 134 H Lactic Acid Calcium Phosphorus Magnesium Direct Bilirubin AST ALT Alkaline Phosphatase Lactate Dehydrogenase Troponin T C-Reactive Protein Total Protein Albumin Prealbumin Triglycerides Cholesterol LDL Cholesterol Direct HDL Cholesterol Urine pH Urine WBC (Auto) Urine Creatinine Urine Total Protein Fluid Total Protein Vancomycin Trough Rheumatoid Factor Complement C4 Miscellaneous Test Flexitest 1 H Crossmatch 11/06/16 11/06/16 11/06/16 04:56 06:25 06:25 WBC RBC 2.50 L Hgb 7.3 L Hct 22.5 L MCV MCH MCHC RDW 16.9 H Plt Count Lymph % (Auto) [place] % (Auto) 10.5 H Lymph # Trigg # 1.1 H Baso # Seg Neutrophils % Seg Neuts % (Manual) Lymphocytes % (Manual) Monocytes % (Manual) Eosinophils % (Manual) Basophils % (Manual) Nucleated RBC % Seg Neutrophils # Seg Neutrophils # Man Lymphocytes # (Manual) Monocytes # (Manual) Eosinophils # (Manual) Basophils # (Manual) PT INR Fibrinogen dRVVT Confirm Interp Factor V Activity POC ABG pH POC ABG pCO2 POC ABG pO2 ABG pO2 ABG HCO3 ABG Base Excess ABG Hemoglobin Oxyhemoglobin Sodium Potassium 5.1 H Chloride 95.9 L Carbon Dioxide BUN 52 H Creatinine 1.8 H Glucose 117 H POC Glucose 120 H Lactic Acid Calcium Phosphorus Magnesium Direct Bilirubin AST 103 H ALT 77 H Alkaline Phosphatase 285 H Lactate Dehydrogenase Troponin T C-Reactive Protein Total Protein 6.2 L Albumin 1.8 L Prealbumin 0.180 L Triglycerides Cholesterol LDL Cholesterol Direct HDL Cholesterol Urine pH Urine WBC (Auto) Urine Creatinine Urine Total Protein Fluid Total Protein Vancomycin Trough Rheumatoid Factor Complement C4 Miscellaneous Test Crossmatch 11/06/16 11/06/16 11/06/16 11:56 17:14 23:52 WBC RBC Hgb Hct MCV MCH MCHC RDW Plt Count Lymph % (Auto) [place] % (Auto) Lymph # [place] # Baso # Seg Neutrophils % Seg Neuts % (Manual) Lymphocytes % (Manual) Monocytes % (Manual) Eosinophils % (Manual) Basophils % (Manual) Nucleated RBC % Seg Neutrophils # Seg Neutrophils # Man Lymphocytes # (Manual) Monocytes # (Manual) Eosinophils # (Manual) Basophils # (Manual) PT INR Fibrinogen dRVVT Confirm Interp Factor V Activity POC ABG pH POC ABG pCO2 POC ABG pO2 ABG pO2 ABG HCO3 ABG Base Excess ABG Hemoglobin Oxyhemoglobin Sodium Potassium Chloride Carbon Dioxide BUN Creatinine Glucose POC Glucose 141 H 125 H 130 H Lactic Acid Calcium Phosphorus Magnesium Direct Bilirubin AST ALT Alkaline Phosphatase Lactate Dehydrogenase Troponin T C-Reactive Protein Total Protein Albumin Prealbumin Triglycerides Cholesterol LDL Cholesterol Direct HDL Cholesterol Urine pH Urine WBC (Auto) Urine Creatinine Urine Total Protein Fluid Total Protein Vancomycin Trough Rheumatoid Factor Complement C4 Miscellaneous Test Crossmatch 11/07/16 11/07/16 11/07/16 06:30 06:30 09:37 WBC RBC 2.18 L Hgb 6.3 L Hct 19.7 L* MCV MCH MCHC RDW 16.8 H Plt Count Lymph % (Auto) [place] % (Auto) 10.0 H Lymph # [place] # 1.0 H Baso # Seg Neutrophils % Seg Neuts % (Manual) Lymphocytes % (Manual) Monocytes % (Manual) Eosinophils % (Manual) Basophils % (Manual) Nucleated RBC % Seg Neutrophils # Seg Neutrophils # Man Lymphocytes # (Manual) Monocytes # (Manual) Eosinophils # (Manual) Basophils # (Manual) PT INR Fibrinogen dRVVT Confirm Interp Factor V Activity POC ABG pH POC ABG pCO2 POC ABG pO2 ABG pO2 ABG HCO3 ABG Base Excess ABG Hemoglobin Oxyhemoglobin Sodium 135 L Potassium Chloride 95.6 L Carbon Dioxide BUN 70 H Creatinine 2.0 H Glucose 126 H POC Glucose Lactic Acid Calcium Phosphorus Magnesium Direct Bilirubin AST ALT Alkaline Phosphatase Lactate Dehydrogenase Troponin T C-Reactive Protein Total Protein Albumin Prealbumin Triglycerides Cholesterol LDL Cholesterol Direct HDL Cholesterol Urine pH Urine WBC (Auto) Urine Creatinine Urine Total Protein Fluid Total Protein Vancomycin Trough Rheumatoid Factor Complement C4 Miscellaneous Test Crossmatch See Detail 11/07/16 11/07/16 11/07/16 12:52 18:51 21:26 WBC RBC Hgb Hct MCV MCH MCHC RDW Plt Count Lymph % (Auto) [place] % (Auto) Lymph # [place] # Baso # Seg Neutrophils % Seg Neuts % (Manual) Lymphocytes % (Manual) Monocytes % (Manual) Eosinophils % (Manual) Basophils % (Manual) Nucleated RBC % Seg Neutrophils # Seg Neutrophils # Man Lymphocytes # (Manual) Monocytes # (Manual) Eosinophils # (Manual) Basophils # (Manual) PT INR Fibrinogen dRVVT Confirm Interp Factor V Activity POC ABG pH 7.523 H POC ABG pCO2 34.6 L POC ABG pO2 53 L ABG pO2 ABG HCO3 ABG Base Excess ABG Hemoglobin Oxyhemoglobin Sodium Potassium Chloride Carbon Dioxide BUN Creatinine Glucose POC Glucose 142 H 155 H Lactic Acid Calcium Phosphorus Magnesium Direct Bilirubin AST ALT Alkaline Phosphatase Lactate Dehydrogenase Troponin T C-Reactive Protein Total Protein Albumin Prealbumin Triglycerides Cholesterol LDL Cholesterol Direct HDL Cholesterol Urine pH Urine WBC (Auto) Urine Creatinine Urine Total Protein Fluid Total Protein Vancomycin Trough Rheumatoid Factor Complement C4 Miscellaneous Test Crossmatch 11/07/16 11/08/16 11/08/16 21:34 13:03 23:37 WBC RBC 2.63 L Hgb 7.7 L Hct 22.7 L MCV MCH MCHC RDW 17.0 H Plt Count Lymph % (Auto) [place] % (Auto) Lymph # [place] # Baso # Seg Neutrophils % Seg Neuts % (Manual) Lymphocytes % (Manual) Monocytes % (Manual) Eosinophils % (Manual) Basophils % (Manual) Nucleated RBC % Seg Neutrophils # Seg Neutrophils # Man Lymphocytes # (Manual) Monocytes # (Manual) Eosinophils # (Manual) Basophils # (Manual) PT INR Fibrinogen dRVVT Confirm Interp Factor V Activity POC ABG pH 7.478 H POC ABG pCO2 34.0 L POC ABG pO2 50 L ABG pO2 ABG HCO3 ABG Base Excess ABG Hemoglobin Oxyhemoglobin Sodium Potassium Chloride Carbon Dioxide BUN Creatinine Glucose POC Glucose 113 H Lactic Acid Calcium Phosphorus Magnesium Direct Bilirubin AST ALT Alkaline Phosphatase Lactate Dehydrogenase Troponin T C-Reactive Protein Total Protein Albumin Prealbumin Triglycerides Cholesterol LDL Cholesterol Direct HDL Cholesterol Urine pH Urine WBC (Auto) Urine Creatinine Urine Total Protein Fluid Total Protein Vancomycin Trough Rheumatoid Factor Complement C4 Miscellaneous Test Crossmatch 11/09/16 11/09/16 11/09/16 04:35 10:15 18:21 WBC RBC 2.68 L Hgb 7.8 L Hct 23.3 L MCV MCH MCHC RDW 17.0 H Plt Count Lymph % (Auto) [place] % (Auto) 12.1 H Lymph # [place] # 1.1 H Baso # Seg Neutrophils % Seg Neuts % (Manual) Lymphocytes % (Manual) Monocytes % (Manual) Eosinophils % (Manual) Basophils % (Manual) Nucleated RBC % Seg Neutrophils # Seg Neutrophils # Man Lymphocytes # (Manual) Monocytes # (Manual) Eosinophils # (Manual) Basophils # (Manual) PT INR Fibrinogen dRVVT Confirm Interp Factor V Activity POC ABG pH POC ABG pCO2 POC ABG pO2 ABG pO2 ABG HCO3 ABG Base Excess ABG Hemoglobin Oxyhemoglobin Sodium Potassium Chloride Carbon Dioxide BUN 51 H Creatinine 1.8 H Glucose POC Glucose 60 L Lactic Acid Calcium 8.3 L Phosphorus Magnesium Direct Bilirubin AST ALT Alkaline Phosphatase Lactate Dehydrogenase Troponin T C-Reactive Protein Total Protein Albumin Prealbumin Triglycerides Cholesterol LDL Cholesterol Direct HDL Cholesterol Urine pH Urine WBC (Auto) Urine Creatinine Urine Total Protein Fluid Total Protein Vancomycin Trough Rheumatoid Factor Complement C4 Miscellaneous Test Crossmatch 11/09/16 11/10/16 11/10/16 18:55 07:00 11:51 WBC RBC Hgb Hct MCV MCH MCHC RDW Plt Count Lymph % (Auto) [place] % (Auto) Lymph # [place] # Baso # Seg Neutrophils % Seg Neuts % (Manual) Lymphocytes % (Manual) Monocytes % (Manual) Eosinophils % (Manual) Basophils % (Manual) Nucleated RBC % Seg Neutrophils # Seg Neutrophils # Man Lymphocytes # (Manual) Monocytes # (Manual) Eosinophils # (Manual) Basophils # (Manual) PT INR Fibrinogen dRVVT Confirm Interp Factor V Activity POC ABG pH POC ABG pCO2 POC ABG pO2 ABG pO2 ABG HCO3 ABG Base Excess ABG Hemoglobin Oxyhemoglobin Sodium Potassium 3.0 L D Chloride 97.4 L Carbon Dioxide BUN 28 H Creatinine 1.3 H Glucose POC Glucose 68 L 120 H Lactic Acid Calcium 7.8 L Phosphorus Magnesium Direct Bilirubin AST ALT Alkaline Phosphatase Lactate Dehydrogenase Troponin T C-Reactive Protein Total Protein Albumin Prealbumin Triglycerides Cholesterol LDL Cholesterol Direct HDL Cholesterol Urine pH Urine WBC (Auto) Urine Creatinine Urine Total Protein Fluid Total Protein Vancomycin Trough Rheumatoid Factor Complement C4 Miscellaneous Test Crossmatch 11/10/16 11/11/16 11/11/16 14:20 06:59 06:59 WBC RBC 2.81 L Hgb 8.1 L Hct 24.4 L MCV MCH MCHC RDW 16.4 H Plt Count Lymph % (Auto) [place] % (Auto) 10.8 H Lymph # [place] # 1.0 H Baso # Seg Neutrophils % Seg Neuts % (Manual) Lymphocytes % (Manual) Monocytes % (Manual) Eosinophils % (Manual) Basophils % (Manual) Nucleated RBC % Seg Neutrophils # Seg Neutrophils # Man Lymphocytes # (Manual) Monocytes # (Manual) Eosinophils # (Manual) Basophils # (Manual) PT INR Fibrinogen dRVVT Confirm Interp Factor V Activity POC ABG pH POC ABG pCO2 POC ABG pO2 ABG pO2 ABG HCO3 ABG Base Excess ABG Hemoglobin Oxyhemoglobin Sodium Potassium Chloride Carbon Dioxide BUN Creatinine Glucose POC Glucose Lactic Acid Calcium Phosphorus Magnesium Direct Bilirubin AST ALT Alkaline Phosphatase Lactate Dehydrogenase 196 H Troponin T C-Reactive Protein Total Protein 6.1 L Albumin Prealbumin Triglycerides Cholesterol LDL Cholesterol Direct HDL Cholesterol Urine pH Urine WBC (Auto) Urine Creatinine Urine Total Protein Fluid Total Protein < 3.0 L Vancomycin Trough Rheumatoid Factor Complement C4 Miscellaneous Test Crossmatch 11/11/16 11/11/16 11/12/16 06:59 09:50 04:00 WBC RBC Hgb Hct MCV MCH MCHC RDW Plt Count Lymph % (Auto) [place] % (Auto) Lymph # [place] # Baso # Seg Neutrophils % Seg Neuts % (Manual) Lymphocytes % (Manual) Monocytes % (Manual) Eosinophils % (Manual) Basophils % (Manual) Nucleated RBC % Seg Neutrophils # Seg Neutrophils # Man Lymphocytes # (Manual) Monocytes # (Manual) Eosinophils # (Manual) Basophils # (Manual) PT INR 1.18 H Fibrinogen dRVVT Confirm Interp Factor V Activity POC ABG pH POC ABG pCO2 POC ABG pO2 ABG pO2 ABG HCO3 ABG Base Excess ABG Hemoglobin Oxyhemoglobin Sodium 136 L 133 L Potassium Chloride 96.1 L 94.8 L Carbon Dioxide 21 L BUN 37 H 42 H Creatinine 1.8 H 2.0 H Glucose POC Glucose Lactic Acid Calcium Phosphorus Magnesium Direct Bilirubin AST ALT Alkaline Phosphatase Lactate Dehydrogenase Troponin T C-Reactive Protein Total Protein Albumin Prealbumin Triglycerides Cholesterol LDL Cholesterol Direct HDL Cholesterol Urine pH Urine WBC (Auto) Urine Creatinine Urine Total Protein Fluid Total Protein Vancomycin Trough Rheumatoid Factor Complement C4 Miscellaneous Test Crossmatch 11/12/16 11/12/16 11/13/16 04:00 23:55 05:53 WBC RBC Hgb 8.9 L Hct 27.2 L MCV MCH MCHC RDW Plt Count Lymph % (Auto) [place] % (Auto) Lymph # [place] # Baso # Seg Neutrophils % Seg Neuts % (Manual) Lymphocytes % (Manual) Monocytes % (Manual) Eosinophils % (Manual) Basophils % (Manual) Nucleated RBC % Seg Neutrophils # Seg Neutrophils # Man Lymphocytes # (Manual) Monocytes # (Manual) Eosinophils # (Manual) Basophils # (Manual) PT INR Fibrinogen dRVVT Confirm Interp Factor V Activity POC ABG pH POC ABG pCO2 POC ABG pO2 ABG pO2 ABG HCO3 ABG Base Excess ABG Hemoglobin Oxyhemoglobin Sodium Potassium Chloride Carbon Dioxide BUN Creatinine Glucose POC Glucose 132 H 120 H Lactic Acid Calcium Phosphorus Magnesium Direct Bilirubin AST ALT Alkaline Phosphatase Lactate Dehydrogenase Troponin T C-Reactive Protein Total Protein Albumin Prealbumin Triglycerides Cholesterol LDL Cholesterol Direct HDL Cholesterol Urine pH Urine WBC (Auto) Urine Creatinine Urine Total Protein Fluid Total Protein Vancomycin Trough Rheumatoid Factor Complement C4 Miscellaneous Test Crossmatch 11/13/16 11/13/16 11/13/16 11:43 17:09 23:41 WBC RBC Hgb Hct MCV MCH MCHC RDW Plt Count Lymph % (Auto) [place] % (Auto) Lymph # [place] # Baso # Seg Neutrophils % Seg Neuts % (Manual) Lymphocytes % (Manual) Monocytes % (Manual) Eosinophils % (Manual) Basophils % (Manual) Nucleated RBC % Seg Neutrophils # Seg Neutrophils # Man Lymphocytes # (Manual) Monocytes # (Manual) Eosinophils # (Manual) Basophils # (Manual) PT INR Fibrinogen dRVVT Confirm Interp Factor V Activity POC ABG pH POC ABG pCO2 POC ABG pO2 ABG pO2 ABG HCO3 ABG Base Excess ABG Hemoglobin Oxyhemoglobin Sodium Potassium Chloride Carbon Dioxide BUN Creatinine Glucose POC Glucose 114 H 113 H 108 H Lactic Acid Calcium Phosphorus Magnesium Direct Bilirubin AST ALT Alkaline Phosphatase Lactate Dehydrogenase Troponin T C-Reactive Protein Total Protein Albumin Prealbumin Triglycerides Cholesterol LDL Cholesterol Direct HDL Cholesterol Urine pH Urine WBC (Auto) Urine Creatinine Urine Total Protein Fluid Total Protein Vancomycin Trough Rheumatoid Factor Complement C4 Miscellaneous Test Crossmatch 11/13/16 11/15/16 11/15/16 Unknown 00:37 03:30 WBC 11.2 H RBC 2.72 L Hgb 7.6 L Hct 23.4 L MCV MCH MCHC RDW 16.5 H Plt Count Lymph % (Auto) [place] % (Auto) Lymph # [place] # Baso # Seg Neutrophils % Seg Neuts % (Manual) Lymphocytes % (Manual) Monocytes % (Manual) Eosinophils % (Manual) Basophils % (Manual) Nucleated RBC % Seg Neutrophils # Seg Neutrophils # Man Lymphocytes # (Manual) Monocytes # (Manual) Eosinophils # (Manual) Basophils # (Manual) PT INR Fibrinogen dRVVT Confirm Interp Factor V Activity POC ABG pH POC ABG pCO2 POC ABG pO2 ABG pO2 ABG HCO3 ABG Base Excess ABG Hemoglobin Oxyhemoglobin Sodium 135 L Potassium Chloride 95.2 L Carbon Dioxide BUN 52 H Creatinine 2.2 H Glucose POC Glucose 108 H Lactic Acid Calcium Phosphorus Magnesium Direct Bilirubin AST ALT Alkaline Phosphatase Lactate Dehydrogenase Troponin T C-Reactive Protein Total Protein Albumin Prealbumin Triglycerides Cholesterol LDL Cholesterol Direct HDL Cholesterol Urine pH Urine WBC (Auto) Urine Creatinine Urine Total Protein Fluid Total Protein Vancomycin Trough Rheumatoid Factor Complement C4 Miscellaneous Test Crossmatch 11/15/16 11/15/16 11/15/16 03:30 05:04 11:50 WBC RBC Hgb Hct MCV MCH MCHC RDW Plt Count Lymph % (Auto) [place] % (Auto) Lymph # [place] # Baso # Seg Neutrophils % Seg Neuts % (Manual) Lymphocytes % (Manual) Monocytes % (Manual) Eosinophils % (Manual) Basophils % (Manual) Nucleated RBC % Seg Neutrophils # Seg Neutrophils # Man Lymphocytes # (Manual) Monocytes # (Manual) Eosinophils # (Manual) Basophils # (Manual) PT INR Fibrinogen dRVVT Confirm Interp Factor V Activity POC ABG pH POC ABG pCO2 POC ABG pO2 ABG pO2 ABG HCO3 ABG Base Excess ABG Hemoglobin Oxyhemoglobin Sodium Potassium 3.4 L Chloride Carbon Dioxide BUN 25 H Creatinine 1.5 H Glucose 103 H POC Glucose 121 H 144 H Lactic Acid Calcium Phosphorus Magnesium Direct Bilirubin AST ALT Alkaline Phosphatase Lactate Dehydrogenase Troponin T C-Reactive Protein Total Protein Albumin Prealbumin Triglycerides Cholesterol LDL Cholesterol Direct HDL Cholesterol Urine pH Urine WBC (Auto) Urine Creatinine Urine Total Protein Fluid Total Protein Vancomycin Trough Rheumatoid Factor Complement C4 Miscellaneous Test Crossmatch 11/15/16 11/15/16 11/16/16 21:28 23:20 11:44 WBC RBC Hgb Hct MCV MCH MCHC RDW Plt Count Lymph % (Auto) [place] % (Auto) Lymph # [place] # Baso # Seg Neutrophils % Seg Neuts % (Manual) Lymphocytes % (Manual) Monocytes % (Manual) Eosinophils % (Manual) Basophils % (Manual) Nucleated RBC % Seg Neutrophils # Seg Neutrophils # Man Lymphocytes # (Manual) Monocytes # (Manual) Eosinophils # (Manual) Basophils # (Manual) PT INR Fibrinogen dRVVT Confirm Interp Factor V Activity POC ABG pH 7.462 H POC ABG pCO2 POC ABG pO2 71 L ABG pO2 ABG HCO3 ABG Base Excess ABG Hemoglobin Oxyhemoglobin Sodium Potassium Chloride Carbon Dioxide BUN Creatinine Glucose POC Glucose 116 H 133 H Lactic Acid Calcium Phosphorus Magnesium Direct Bilirubin AST ALT Alkaline Phosphatase Lactate Dehydrogenase Troponin T C-Reactive Protein Total Protein Albumin Prealbumin Triglycerides Cholesterol LDL Cholesterol Direct HDL Cholesterol Urine pH Urine WBC (Auto) Urine Creatinine Urine Total Protein Fluid Total Protein Vancomycin Trough Rheumatoid Factor Complement C4 Miscellaneous Test Crossmatch 11/16/16 11/16/16 11/16/16 12:20 17:05 23:35 WBC 11.7 H RBC 2.73 L Hgb 7.6 L Hct 23.7 L MCV MCH MCHC RDW 16.6 H Plt Count Lymph % (Auto) [place] % (Auto) Lymph # [place] # Baso # Seg Neutrophils % Seg Neuts % (Manual) Lymphocytes % (Manual) Monocytes % (Manual) Eosinophils % (Manual) Basophils % (Manual) Nucleated RBC % Seg Neutrophils # Seg Neutrophils # Man Lymphocytes # (Manual) Monocytes # (Manual) Eosinophils # (Manual) Basophils # (Manual) PT INR Fibrinogen dRVVT Confirm Interp Factor V Activity POC ABG pH POC ABG pCO2 POC ABG pO2 ABG pO2 ABG HCO3 ABG Base Excess ABG Hemoglobin Oxyhemoglobin Sodium Potassium Chloride Carbon Dioxide BUN Creatinine Glucose POC Glucose 154 H 125 H Lactic Acid Calcium Phosphorus Magnesium Direct Bilirubin AST ALT Alkaline Phosphatase Lactate Dehydrogenase Troponin T C-Reactive Protein Total Protein Albumin Prealbumin Triglycerides Cholesterol LDL Cholesterol Direct HDL Cholesterol Urine pH Urine WBC (Auto) Urine Creatinine Urine Total Protein Fluid Total Protein Vancomycin Trough Rheumatoid Factor Complement C4 Miscellaneous Test Crossmatch 11/17/16 11/17/16 11/17/16 03:20 03:20 03:20 WBC RBC 2.55 L Hgb 7.3 L Hct 21.9 L MCV MCH MCHC RDW 16.6 H Plt Count Lymph % (Auto) [place] % (Auto) 11.5 H Lymph # [place] # 1.1 H Baso # Seg Neutrophils % Seg Neuts % (Manual) Lymphocytes % (Manual) Monocytes % (Manual) Eosinophils % (Manual) Basophils % (Manual) Nucleated RBC % Seg Neutrophils # Seg Neutrophils # Man Lymphocytes # (Manual) Monocytes # (Manual) Eosinophils # (Manual) Basophils # (Manual) PT 16.8 H INR 1.37 H Fibrinogen dRVVT Confirm Interp Factor V Activity POC ABG pH POC ABG pCO2 POC ABG pO2 ABG pO2 ABG HCO3 ABG Base Excess ABG Hemoglobin Oxyhemoglobin Sodium Potassium 3.5 L Chloride Carbon Dioxide BUN 21 H Creatinine Glucose POC Glucose Lactic Acid Calcium 7.9 L Phosphorus Magnesium Direct Bilirubin AST ALT Alkaline Phosphatase Lactate Dehydrogenase Troponin T C-Reactive Protein Total Protein Albumin Prealbumin Triglycerides Cholesterol LDL Cholesterol Direct HDL Cholesterol Urine pH Urine WBC (Auto) Urine Creatinine Urine Total Protein Fluid Total Protein Vancomycin Trough Rheumatoid Factor Complement C4 Miscellaneous Test Crossmatch 11/17/16 11/17/16 11/17/16 06:34 11:21 21:22 WBC RBC Hgb Hct MCV MCH MCHC RDW Plt Count Lymph % (Auto) [place] % (Auto) Lymph # [place] # Baso # Seg Neutrophils % Seg Neuts % (Manual) Lymphocytes % (Manual) Monocytes % (Manual) Eosinophils % (Manual) Basophils % (Manual) Nucleated RBC % Seg Neutrophils # Seg Neutrophils # Man Lymphocytes # (Manual) Monocytes # (Manual) Eosinophils # (Manual) Basophils # (Manual) PT INR Fibrinogen dRVVT Confirm Interp Factor V Activity POC ABG pH 7.467 H POC ABG pCO2 POC ABG pO2 73 L ABG pO2 ABG HCO3 ABG Base Excess ABG Hemoglobin Oxyhemoglobin Sodium Potassium Chloride Carbon Dioxide BUN Creatinine Glucose POC Glucose 121 H 119 H Lactic Acid Calcium Phosphorus Magnesium Direct Bilirubin AST ALT Alkaline Phosphatase Lactate Dehydrogenase Troponin T C-Reactive Protein Total Protein Albumin Prealbumin Triglycerides Cholesterol LDL Cholesterol Direct HDL Cholesterol Urine pH Urine WBC (Auto) Urine Creatinine Urine Total Protein Fluid Total Protein Vancomycin Trough Rheumatoid Factor Complement C4 Miscellaneous Test Crossmatch 11/18/16 11/18/16 11/19/16 12:16 17:19 00:00 WBC RBC Hgb Hct MCV MCH MCHC RDW Plt Count Lymph % (Auto) [place] % (Auto) Lymph # [place] # Baso # Seg Neutrophils % Seg Neuts % (Manual) Lymphocytes % (Manual) Monocytes % (Manual) Eosinophils % (Manual) Basophils % (Manual) Nucleated RBC % Seg Neutrophils # Seg Neutrophils # Man Lymphocytes # (Manual) Monocytes # (Manual) Eosinophils # (Manual) Basophils # (Manual) PT INR Fibrinogen dRVVT Confirm Interp Factor V Activity POC ABG pH POC ABG pCO2 POC ABG pO2 ABG pO2 ABG HCO3 ABG Base Excess ABG Hemoglobin Oxyhemoglobin Sodium Potassium Chloride Carbon Dioxide BUN Creatinine Glucose POC Glucose 124 H 162 H 139 H Lactic Acid Calcium Phosphorus Magnesium Direct Bilirubin AST ALT Alkaline Phosphatase Lactate Dehydrogenase Troponin T C-Reactive Protein Total Protein Albumin Prealbumin Triglycerides Cholesterol LDL Cholesterol Direct HDL Cholesterol Urine pH Urine WBC (Auto) Urine Creatinine Urine Total Protein Fluid Total Protein Vancomycin Trough Rheumatoid Factor Complement C4 Miscellaneous Test Crossmatch 11/19/16 11/19/16 11/20/16 05:00 12:43 00:40 WBC RBC Hgb Hct MCV MCH MCHC RDW Plt Count Lymph % (Auto) [place] % (Auto) Lymph # [place] # Baso # Seg Neutrophils % Seg Neuts % (Manual) Lymphocytes % (Manual) Monocytes % (Manual) Eosinophils % (Manual) Basophils % (Manual) Nucleated RBC % Seg Neutrophils # Seg Neutrophils # Man Lymphocytes # (Manual) Monocytes # (Manual) Eosinophils # (Manual) Basophils # (Manual) PT INR Fibrinogen dRVVT Confirm Interp Factor V Activity POC ABG pH POC ABG pCO2 POC ABG pO2 ABG pO2 ABG HCO3 ABG Base Excess ABG Hemoglobin Oxyhemoglobin Sodium Potassium Chloride Carbon Dioxide BUN Creatinine Glucose POC Glucose 110 H 125 H 136 H Lactic Acid Calcium Phosphorus Magnesium Direct Bilirubin AST ALT Alkaline Phosphatase Lactate Dehydrogenase Troponin T C-Reactive Protein Total Protein Albumin Prealbumin Triglycerides Cholesterol LDL Cholesterol Direct HDL Cholesterol Urine pH Urine WBC (Auto) Urine Creatinine Urine Total Protein Fluid Total Protein Vancomycin Trough Rheumatoid Factor Complement C4 Miscellaneous Test Crossmatch 11/20/16 11/20/16 11/20/16 05:00 05:00 05:51 WBC 13.1 H RBC 2.74 L Hgb 7.7 L Hct 23.6 L MCV MCH MCHC RDW 16.9 H Plt Count Lymph % (Auto) [place] % (Auto) 10.8 H Lymph # [place] # 1.4 H Baso # Seg Neutrophils % Seg Neuts % (Manual) Lymphocytes % (Manual) Monocytes % (Manual) Eosinophils % (Manual) Basophils % (Manual) Nucleated RBC % Seg Neutrophils # 7.9 H Seg Neutrophils # Man Lymphocytes # (Manual) Monocytes # (Manual) Eosinophils # (Manual) Basophils # (Manual) PT INR Fibrinogen dRVVT Confirm Interp Factor V Activity POC ABG pH POC ABG pCO2 POC ABG pO2 ABG pO2 ABG HCO3 ABG Base Excess ABG Hemoglobin Oxyhemoglobin Sodium Potassium Chloride Carbon Dioxide BUN 31 H Creatinine 1.8 H Glucose 129 H POC Glucose 133 H Lactic Acid Calcium Phosphorus Magnesium Direct Bilirubin AST ALT Alkaline Phosphatase Lactate Dehydrogenase Troponin T C-Reactive Protein Total Protein Albumin Prealbumin Triglycerides Cholesterol LDL Cholesterol Direct HDL Cholesterol Urine pH Urine WBC (Auto) Urine Creatinine Urine Total Protein Fluid Total Protein Vancomycin Trough Rheumatoid Factor Complement C4 Miscellaneous Test Crossmatch 11/20/16 11/20/16 11/21/16 12:40 18:10 01:20 WBC RBC Hgb Hct MCV MCH MCHC RDW Plt Count Lymph % (Auto) [place] % (Auto) Lymph # [place] # Baso # Seg Neutrophils % Seg Neuts % (Manual) Lymphocytes % (Manual) Monocytes % (Manual) Eosinophils % (Manual) Basophils % (Manual) Nucleated RBC % Seg Neutrophils # Seg Neutrophils # Man Lymphocytes # (Manual) Monocytes # (Manual) Eosinophils # (Manual) Basophils # (Manual) PT INR Fibrinogen dRVVT Confirm Interp Factor V Activity POC ABG pH POC ABG pCO2 POC ABG pO2 ABG pO2 ABG HCO3 ABG Base Excess ABG Hemoglobin Oxyhemoglobin Sodium Potassium Chloride Carbon Dioxide BUN Creatinine Glucose POC Glucose 134 H 138 H 136 H Lactic Acid Calcium Phosphorus Magnesium Direct Bilirubin AST ALT Alkaline Phosphatase Lactate Dehydrogenase Troponin T C-Reactive Protein Total Protein Albumin Prealbumin Triglycerides Cholesterol LDL Cholesterol Direct HDL Cholesterol Urine pH Urine WBC (Auto) Urine Creatinine Urine Total Protein Fluid Total Protein Vancomycin Trough Rheumatoid Factor Complement C4 Miscellaneous Test Crossmatch 11/21/16 11/21/16 11/21/16 07:04 07:45 07:45 WBC 22.0 H RBC 2.91 L Hgb 8.2 L Hct 25.4 L MCV MCH MCHC RDW 17.1 H Plt Count Lymph % (Auto) [place] % (Auto) Lymph # Trigg # Baso # Seg Neutrophils % Seg Neuts % (Manual) Lymphocytes % (Manual) 8.0 L Monocytes % (Manual) Eosinophils % (Manual) Basophils % (Manual) Nucleated RBC % Seg Neutrophils # Seg Neutrophils # Man 14.7 H Lymphocytes # (Manual) Monocytes # (Manual) 1.1 H Eosinophils # (Manual) Basophils # (Manual) PT INR Fibrinogen dRVVT Confirm Interp Factor V Activity POC ABG pH POC ABG pCO2 POC ABG pO2 ABG pO2 ABG HCO3 ABG Base Excess ABG Hemoglobin Oxyhemoglobin Sodium Potassium Chloride Carbon Dioxide BUN 42 H Creatinine 2.0 H Glucose POC Glucose 108 H Lactic Acid Calcium Phosphorus Magnesium Direct Bilirubin AST ALT Alkaline Phosphatase Lactate Dehydrogenase Troponin T C-Reactive Protein Total Protein Albumin Prealbumin Triglycerides Cholesterol LDL Cholesterol Direct HDL Cholesterol Urine pH Urine WBC (Auto) Urine Creatinine Urine Total Protein Fluid Total Protein Vancomycin Trough Rheumatoid Factor Complement C4 Miscellaneous Test Crossmatch 11/21/16 11/21/16 11/21/16 08:38 10:09 11:20 WBC RBC Hgb Hct MCV MCH MCHC RDW Plt Count Lymph % (Auto) [place] % (Auto) Lymph # [place] # Baso # Seg Neutrophils % Seg Neuts % (Manual) Lymphocytes % (Manual) Monocytes % (Manual) Eosinophils % (Manual) Basophils % (Manual) Nucleated RBC % Seg Neutrophils # Seg Neutrophils # Man Lymphocytes # (Manual) Monocytes # (Manual) Eosinophils # (Manual) Basophils # (Manual) PT INR Fibrinogen dRVVT Confirm Interp Factor V Activity POC ABG pH 7.346 L POC ABG pCO2 34.4 L POC ABG pO2 314 H ABG pO2 ABG HCO3 ABG Base Excess ABG Hemoglobin Oxyhemoglobin Sodium Potassium Chloride Carbon Dioxide BUN Creatinine Glucose POC Glucose 195 H 153 H Lactic Acid Calcium Phosphorus Magnesium Direct Bilirubin AST ALT Alkaline Phosphatase Lactate Dehydrogenase Troponin T C-Reactive Protein Total Protein Albumin Prealbumin Triglycerides Cholesterol LDL Cholesterol Direct HDL Cholesterol Urine pH Urine WBC (Auto) Urine Creatinine Urine Total Protein Fluid Total Protein Vancomycin Trough Rheumatoid Factor Complement C4 Miscellaneous Test Crossmatch 11/21/16 11/22/16 11/22/16 23:37 04:48 05:00 WBC 29.7 H RBC 2.73 L Hgb 7.5 L Hct 24.2 L MCV MCH 27 L MCHC RDW 17.4 H Plt Count Lymph % (Auto) [place] % (Auto) Lymph # [place] # Baso # Seg Neutrophils % Seg Neuts % (Manual) Lymphocytes % (Manual) 7.0 L Monocytes % (Manual) Eosinophils % (Manual) Basophils % (Manual) Nucleated RBC % Seg Neutrophils # Seg Neutrophils # Man 15.4 H Lymphocytes # (Manual) Monocytes # (Manual) Eosinophils # (Manual) Basophils # (Manual) PT INR Fibrinogen dRVVT Confirm Interp Factor V Activity POC ABG pH POC ABG pCO2 24.6 L POC ABG pO2 189 H ABG pO2 ABG HCO3 ABG Base Excess ABG Hemoglobin Oxyhemoglobin Sodium Potassium Chloride Carbon Dioxide BUN Creatinine Glucose POC Glucose 65 L Lactic Acid Calcium Phosphorus Magnesium Direct Bilirubin AST ALT Alkaline Phosphatase Lactate Dehydrogenase Troponin T C-Reactive Protein Total Protein Albumin Prealbumin Triglycerides Cholesterol LDL Cholesterol Direct HDL Cholesterol Urine pH Urine WBC (Auto) Urine Creatinine Urine Total Protein Fluid Total Protein Vancomycin Trough Rheumatoid Factor Complement C4 Miscellaneous Test Crossmatch 11/22/16 11/23/16 11/23/16 05:00 03:44 04:06 WBC RBC 2.52 L Hgb 7.2 L Hct 21.5 L MCV MCH MCHC RDW 17.1 H Plt Count Lymph % (Auto) [place] % (Auto) 12.4 H Lymph # [place] # 1.4 H Baso # Seg Neutrophils % Seg Neuts % (Manual) Lymphocytes % (Manual) Monocytes % (Manual) Eosinophils % (Manual) Basophils % (Manual) Nucleated RBC % Seg Neutrophils # Seg Neutrophils # Man Lymphocytes # (Manual) Monocytes # (Manual) Eosinophils # (Manual) Basophils # (Manual) PT INR Fibrinogen dRVVT Confirm Interp Factor V Activity POC ABG pH 7.493 H POC ABG pCO2 29.5 L POC ABG pO2 49 L ABG pO2 ABG HCO3 ABG Base Excess ABG Hemoglobin Oxyhemoglobin Sodium 134 L Potassium Chloride 95.9 L Carbon Dioxide 14 L D BUN 51 H Creatinine 2.6 H Glucose POC Glucose Lactic Acid Calcium Phosphorus Magnesium Direct Bilirubin AST ALT Alkaline Phosphatase Lactate Dehydrogenase Troponin T C-Reactive Protein Total Protein Albumin Prealbumin Triglycerides Cholesterol LDL Cholesterol Direct HDL Cholesterol Urine pH Urine WBC (Auto) Urine Creatinine Urine Total Protein Fluid Total Protein Vancomycin Trough Rheumatoid Factor Complement C4 Miscellaneous Test Crossmatch 11/23/16 11/23/16 11/24/16 04:06 11:29 06:39 WBC RBC Hgb Hct MCV MCH MCHC RDW Plt Count Lymph % (Auto) [place] % (Auto) Lymph # [place] # Baso # Seg Neutrophils % Seg Neuts % (Manual) Lymphocytes % (Manual) Monocytes % (Manual) Eosinophils % (Manual) Basophils % (Manual) Nucleated RBC % Seg Neutrophils # Seg Neutrophils # Man Lymphocytes # (Manual) Monocytes # (Manual) Eosinophils # (Manual) Basophils # (Manual) PT INR Fibrinogen dRVVT Confirm Interp Factor V Activity POC ABG pH POC ABG pCO2 POC ABG pO2 ABG pO2 ABG HCO3 ABG Base Excess ABG Hemoglobin Oxyhemoglobin Sodium 136 L Potassium Chloride 95.2 L Carbon Dioxide BUN 60 H Creatinine 2.9 H Glucose POC Glucose 69 L 305 H Lactic Acid Calcium Phosphorus Magnesium 1.60 L Direct Bilirubin AST ALT Alkaline Phosphatase Lactate Dehydrogenase Troponin T C-Reactive Protein Total Protein Albumin Prealbumin Triglycerides Cholesterol LDL Cholesterol Direct HDL Cholesterol Urine pH Urine WBC (Auto) Urine Creatinine Urine Total Protein Fluid Total Protein Vancomycin Trough Rheumatoid Factor Complement C4 Miscellaneous Test Crossmatch 11/24/16 11/24/16 11/24/16 06:43 08:08 08:08 WBC 11.2 H RBC 2.47 L Hgb 6.8 L Hct 20.6 L MCV MCH MCHC RDW 17.0 H Plt Count Lymph % (Auto) [place] % (Auto) 10.3 H Lymph # [place] # 1.2 H Baso # Seg Neutrophils % Seg Neuts % (Manual) Lymphocytes % (Manual) Monocytes % (Manual) Eosinophils % (Manual) Basophils % (Manual) Nucleated RBC % Seg Neutrophils # Seg Neutrophils # Man Lymphocytes # (Manual) Monocytes # (Manual) Eosinophils # (Manual) Basophils # (Manual) PT INR Fibrinogen dRVVT Confirm Interp Factor V Activity POC ABG pH POC ABG pCO2 POC ABG pO2 ABG pO2 ABG HCO3 ABG Base Excess ABG Hemoglobin Oxyhemoglobin Sodium 135 L Potassium Chloride 96.3 L Carbon Dioxide BUN 61 H Creatinine 3.1 H Glucose POC Glucose 62 L Lactic Acid Calcium 8.2 L Phosphorus Magnesium Direct Bilirubin AST ALT Alkaline Phosphatase Lactate Dehydrogenase Troponin T C-Reactive Protein Total Protein Albumin Prealbumin Triglycerides Cholesterol LDL Cholesterol Direct HDL Cholesterol Urine pH Urine WBC (Auto) Urine Creatinine Urine Total Protein Fluid Total Protein Vancomycin Trough Rheumatoid Factor Complement C4 Miscellaneous Test Crossmatch 11/24/16 11/24/16 11/24/16 08:34 11:20 12:41 WBC RBC Hgb Hct MCV MCH MCHC RDW Plt Count Lymph % (Auto) [place] % (Auto) Lymph # [place] # Baso # Seg Neutrophils % Seg Neuts % (Manual) Lymphocytes % (Manual) Monocytes % (Manual) Eosinophils % (Manual) Basophils % (Manual) Nucleated RBC % Seg Neutrophils # Seg Neutrophils # Man Lymphocytes # (Manual) Monocytes # (Manual) Eosinophils # (Manual) Basophils # (Manual) PT INR Fibrinogen dRVVT Confirm Interp Factor V Activity POC ABG pH POC ABG pCO2 POC ABG pO2 ABG pO2 ABG HCO3 ABG Base Excess ABG Hemoglobin Oxyhemoglobin Sodium Potassium Chloride Carbon Dioxide BUN Creatinine Glucose POC Glucose 108 H Lactic Acid Calcium Phosphorus Magnesium 1.60 L Direct Bilirubin AST ALT Alkaline Phosphatase Lactate Dehydrogenase Troponin T C-Reactive Protein Total Protein Albumin Prealbumin Triglycerides Cholesterol LDL Cholesterol Direct HDL Cholesterol Urine pH Urine WBC (Auto) Urine Creatinine Urine Total Protein Fluid Total Protein Vancomycin Trough Rheumatoid Factor Complement C4 Miscellaneous Test Crossmatch See Detail 11/25/16 11/25/16 11/25/16 00:03 04:42 04:42 WBC RBC 3.03 L Hgb 8.6 L Hct 25.3 L MCV MCH MCHC RDW 16.2 H Plt Count Lymph % (Auto) [place] % (Auto) 8.1 H Lymph # [place] # Baso # Seg Neutrophils % 71.3 H Seg Neuts % (Manual) Lymphocytes % (Manual) Monocytes % (Manual) Eosinophils % (Manual) Basophils % (Manual) Nucleated RBC % Seg Neutrophils # Seg Neutrophils # Man Lymphocytes # (Manual) Monocytes # (Manual) Eosinophils # (Manual) Basophils # (Manual) PT INR Fibrinogen dRVVT Confirm Interp Factor V Activity POC ABG pH POC ABG pCO2 POC ABG pO2 ABG pO2 ABG HCO3 ABG Base Excess ABG Hemoglobin Oxyhemoglobin Sodium Potassium Chloride Carbon Dioxide BUN 61 H Creatinine 3.0 H Glucose 102 H POC Glucose 113 H Lactic Acid Calcium 8.2 L Phosphorus Magnesium Direct Bilirubin AST ALT Alkaline Phosphatase 142 H Lactate Dehydrogenase Troponin T C-Reactive Protein Total Protein 5.7 L Albumin 1.5 L Prealbumin Triglycerides Cholesterol LDL Cholesterol Direct HDL Cholesterol Urine pH Urine WBC (Auto) Urine Creatinine Urine Total Protein Fluid Total Protein Vancomycin Trough Rheumatoid Factor Complement C4 Miscellaneous Test Crossmatch 11/25/16 11/25/16 11/25/16 05:12 11:31 14:12 WBC RBC Hgb Hct MCV MCH MCHC RDW Plt Count Lymph % (Auto) [place] % (Auto) Lymph # [place] # Baso # Seg Neutrophils % Seg Neuts % (Manual) Lymphocytes % (Manual) Monocytes % (Manual) Eosinophils % (Manual) Basophils % (Manual) Nucleated RBC % Seg Neutrophils # Seg Neutrophils # Man Lymphocytes # (Manual) Monocytes # (Manual) Eosinophils # (Manual) Basophils # (Manual) PT INR Fibrinogen dRVVT Confirm Interp Factor V Activity POC ABG pH 7.487 H POC ABG pCO2 POC ABG pO2 153 H ABG pO2 ABG HCO3 ABG Base Excess ABG Hemoglobin Oxyhemoglobin Sodium Potassium Chloride Carbon Dioxide BUN Creatinine Glucose POC Glucose 131 H 140 H Lactic Acid Calcium Phosphorus Magnesium Direct Bilirubin AST ALT Alkaline Phosphatase Lactate Dehydrogenase Troponin T C-Reactive Protein Total Protein Albumin Prealbumin Triglycerides Cholesterol LDL Cholesterol Direct HDL Cholesterol Urine pH Urine WBC (Auto) Urine Creatinine Urine Total Protein Fluid Total Protein Vancomycin Trough Rheumatoid Factor Complement C4 Miscellaneous Test Crossmatch 11/25/16 11/26/16 11/26/16 17:23 00:09 05:13 WBC RBC 2.94 L Hgb 8.4 L Hct 24.6 L MCV MCH MCHC RDW 16.4 H Plt Count Lymph % (Auto) [place] % (Auto) 12.3 H Lymph # [place] # 1.1 H Baso # Seg Neutrophils % Seg Neuts % (Manual) Lymphocytes % (Manual) Monocytes % (Manual) Eosinophils % (Manual) Basophils % (Manual) Nucleated RBC % Seg Neutrophils # Seg Neutrophils # Man Lymphocytes # (Manual) Monocytes # (Manual) Eosinophils # (Manual) Basophils # (Manual) PT INR Fibrinogen dRVVT Confirm Interp Factor V Activity POC ABG pH POC ABG pCO2 POC ABG pO2 ABG pO2 ABG HCO3 ABG Base Excess ABG Hemoglobin Oxyhemoglobin Sodium Potassium Chloride Carbon Dioxide BUN Creatinine Glucose POC Glucose 146 H 112 H Lactic Acid Calcium Phosphorus Magnesium Direct Bilirubin AST ALT Alkaline Phosphatase Lactate Dehydrogenase Troponin T C-Reactive Protein Total Protein Albumin Prealbumin Triglycerides Cholesterol LDL Cholesterol Direct HDL Cholesterol Urine pH Urine WBC (Auto) Urine Creatinine Urine Total Protein Fluid Total Protein Vancomycin Trough Rheumatoid Factor Complement C4 Miscellaneous Test Crossmatch 11/26/16 11/26/16 11/26/16 05:13 05:28 11:53 WBC RBC Hgb Hct MCV MCH MCHC RDW Plt Count Lymph % (Auto) [place] % (Auto) Lymph # [place] # Baso # Seg Neutrophils % Seg Neuts % (Manual) Lymphocytes % (Manual) Monocytes % (Manual) Eosinophils % (Manual) Basophils % (Manual) Nucleated RBC % Seg Neutrophils # Seg Neutrophils # Man Lymphocytes # (Manual) Monocytes # (Manual) Eosinophils # (Manual) Basophils # (Manual) PT INR Fibrinogen dRVVT Confirm Interp Factor V Activity POC ABG pH POC ABG pCO2 POC ABG pO2 ABG pO2 ABG HCO3 ABG Base Excess ABG Hemoglobin Oxyhemoglobin Sodium Potassium Chloride 97.8 L Carbon Dioxide BUN 37 H Creatinine 2.0 H Glucose 109 H POC Glucose 117 H 111 H Lactic Acid Calcium 7.9 L Phosphorus 1.80 L D Magnesium Direct Bilirubin AST ALT Alkaline Phosphatase Lactate Dehydrogenase Troponin T C-Reactive Protein Total Protein Albumin Prealbumin Triglycerides Cholesterol LDL Cholesterol Direct HDL Cholesterol Urine pH Urine WBC (Auto) Urine Creatinine Urine Total Protein Fluid Total Protein Vancomycin Trough Rheumatoid Factor Complement C4 Miscellaneous Test Crossmatch 11/26/16 11/27/16 11/27/16 17:14 04:50 06:02 WBC RBC Hgb Hct MCV MCH MCHC RDW Plt Count Lymph % (Auto) [place] % (Auto) Lymph # [place] # Baso # Seg Neutrophils % Seg Neuts % (Manual) Lymphocytes % (Manual) Monocytes % (Manual) Eosinophils % (Manual) Basophils % (Manual) Nucleated RBC % Seg Neutrophils # Seg Neutrophils # Man Lymphocytes # (Manual) Monocytes # (Manual) Eosinophils # (Manual) Basophils # (Manual) PT INR Fibrinogen dRVVT Confirm Interp Factor V Activity POC ABG pH POC ABG pCO2 POC ABG pO2 ABG pO2 75.2 L ABG HCO3 26.4 H ABG Base Excess ABG Hemoglobin 7.6 L Oxyhemoglobin 94.8 L Sodium Potassium Chloride Carbon Dioxide BUN 49 H Creatinine 2.3 H Glucose POC Glucose 115 H Lactic Acid Calcium Phosphorus 1.50 L Magnesium Direct Bilirubin AST ALT Alkaline Phosphatase Lactate Dehydrogenase Troponin T C-Reactive Protein Total Protein Albumin Prealbumin Triglycerides Cholesterol LDL Cholesterol Direct HDL Cholesterol Urine pH Urine WBC (Auto) Urine Creatinine Urine Total Protein Fluid Total Protein Vancomycin Trough Rheumatoid Factor Complement C4 Miscellaneous Test Crossmatch 11/27/16 11/27/16 11/27/16 06:02 11:25 17:25 WBC 11.6 H RBC 2.75 L Hgb 7.6 L Hct 23.4 L MCV MCH MCHC RDW 16.5 H Plt Count Lymph % (Auto) [place] % (Auto) Lymph # [place] # Baso # Seg Neutrophils % Seg Neuts % (Manual) Lymphocytes % (Manual) Monocytes % (Manual) Eosinophils % (Manual) Basophils % (Manual) Nucleated RBC % Seg Neutrophils # Seg Neutrophils # Man Lymphocytes # (Manual) Monocytes # (Manual) Eosinophils # (Manual) Basophils # (Manual) PT INR Fibrinogen dRVVT Confirm Interp Factor V Activity POC ABG pH POC ABG pCO2 POC ABG pO2 ABG pO2 ABG HCO3 ABG Base Excess ABG Hemoglobin Oxyhemoglobin Sodium Potassium Chloride Carbon Dioxide BUN Creatinine Glucose POC Glucose 114 H 126 H Lactic Acid Calcium Phosphorus Magnesium Direct Bilirubin AST ALT Alkaline Phosphatase Lactate Dehydrogenase Troponin T C-Reactive Protein Total Protein Albumin Prealbumin Triglycerides Cholesterol LDL Cholesterol Direct HDL Cholesterol Urine pH Urine WBC (Auto) Urine Creatinine Urine Total Protein Fluid Total Protein Vancomycin Trough Rheumatoid Factor Complement C4 Miscellaneous Test Crossmatch 11/28/16 11/28/16 11/28/16 04:45 05:33 05:44 WBC RBC Hgb Hct MCV MCH MCHC RDW Plt Count Lymph % (Auto) [place] % (Auto) Lymph # [place] # Baso # Seg Neutrophils % Seg Neuts % (Manual) Lymphocytes % (Manual) Monocytes % (Manual) Eosinophils % (Manual) Basophils % (Manual) Nucleated RBC % Seg Neutrophils # Seg Neutrophils # Man Lymphocytes # (Manual) Monocytes # (Manual) Eosinophils # (Manual) Basophils # (Manual) PT INR Fibrinogen dRVVT Confirm Interp Factor V Activity POC ABG pH POC ABG pCO2 POC ABG pO2 ABG pO2 99.3 H ABG HCO3 ABG Base Excess ABG Hemoglobin 8.3 L Oxyhemoglobin Sodium Potassium Chloride Carbon Dioxide BUN 63 H Creatinine 2.4 H Glucose 102 H POC Glucose 108 H Lactic Acid Calcium Phosphorus 1.80 L Magnesium Direct Bilirubin AST ALT Alkaline Phosphatase Lactate Dehydrogenase Troponin T C-Reactive Protein Total Protein Albumin Prealbumin Triglycerides Cholesterol LDL Cholesterol Direct HDL Cholesterol Urine pH Urine WBC (Auto) Urine Creatinine Urine Total Protein Fluid Total Protein Vancomycin Trough Rheumatoid Factor Complement C4 Miscellaneous Test Crossmatch 11/28/16 11/28/16 11/28/16 12:31 16:09 23:46 WBC RBC Hgb Hct MCV MCH MCHC RDW Plt Count Lymph % (Auto) [place] % (Auto) Lymph # [place] # Baso # Seg Neutrophils % Seg Neuts % (Manual) Lymphocytes % (Manual) Monocytes % (Manual) Eosinophils % (Manual) Basophils % (Manual) Nucleated RBC % Seg Neutrophils # Seg Neutrophils # Man Lymphocytes # (Manual) Monocytes # (Manual) Eosinophils # (Manual) Basophils # (Manual) PT INR Fibrinogen dRVVT Confirm Interp Factor V Activity POC ABG pH POC ABG pCO2 POC ABG pO2 ABG pO2 ABG HCO3 ABG Base Excess ABG Hemoglobin Oxyhemoglobin Sodium Potassium Chloride Carbon Dioxide BUN Creatinine Glucose POC Glucose 126 H 111 H 119 H Lactic Acid Calcium Phosphorus Magnesium Direct Bilirubin AST ALT Alkaline Phosphatase Lactate Dehydrogenase Troponin T C-Reactive Protein Total Protein Albumin Prealbumin Triglycerides Cholesterol LDL Cholesterol Direct HDL Cholesterol Urine pH Urine WBC (Auto) Urine Creatinine Urine Total Protein Fluid Total Protein Vancomycin Trough Rheumatoid Factor Complement C4 Miscellaneous Test Crossmatch 11/29/16 11/29/16 11/29/16 03:33 04:52 05:10 WBC RBC Hgb Hct MCV MCH MCHC RDW Plt Count Lymph % (Auto) [place] % (Auto) Lymph # [place] # Baso # Seg Neutrophils % Seg Neuts % (Manual) Lymphocytes % (Manual) Monocytes % (Manual) Eosinophils % (Manual) Basophils % (Manual) Nucleated RBC % Seg Neutrophils # Seg Neutrophils # Man Lymphocytes # (Manual) Monocytes # (Manual) Eosinophils # (Manual) Basophils # (Manual) PT INR Fibrinogen dRVVT Confirm Interp Factor V Activity POC ABG pH POC ABG pCO2 POC ABG pO2 ABG pO2 ABG HCO3 ABG Base Excess ABG Hemoglobin 7.0 L Oxyhemoglobin 94.9 L Sodium Potassium Chloride Carbon Dioxide BUN 73 H Creatinine 2.7 H Glucose POC Glucose 108 H Lactic Acid Calcium Phosphorus Magnesium Direct Bilirubin AST ALT Alkaline Phosphatase Lactate Dehydrogenase Troponin T C-Reactive Protein Total Protein Albumin Prealbumin Triglycerides Cholesterol LDL Cholesterol Direct HDL Cholesterol Urine pH Urine WBC (Auto) Urine Creatinine Urine Total Protein Fluid Total Protein Vancomycin Trough Rheumatoid Factor Complement C4 Miscellaneous Test Crossmatch 11/29/16 11/29/16 11/29/16 12:16 18:05 23:46 WBC RBC Hgb Hct MCV MCH MCHC RDW Plt Count Lymph % (Auto) [place] % (Auto) Lymph # [place] # Baso # Seg Neutrophils % Seg Neuts % (Manual) Lymphocytes % (Manual) Monocytes % (Manual) Eosinophils % (Manual) Basophils % (Manual) Nucleated RBC % Seg Neutrophils # Seg Neutrophils # Man Lymphocytes # (Manual) Monocytes # (Manual) Eosinophils # (Manual) Basophils # (Manual) PT INR Fibrinogen dRVVT Confirm Interp Factor V Activity POC ABG pH POC ABG pCO2 POC ABG pO2 ABG pO2 ABG HCO3 ABG Base Excess ABG Hemoglobin Oxyhemoglobin Sodium Potassium Chloride Carbon Dioxide BUN Creatinine Glucose POC Glucose 133 H 146 H 141 H Lactic Acid Calcium Phosphorus Magnesium Direct Bilirubin AST ALT Alkaline Phosphatase Lactate Dehydrogenase Troponin T C-Reactive Protein Total Protein Albumin Prealbumin Triglycerides Cholesterol LDL Cholesterol Direct HDL Cholesterol Urine pH Urine WBC (Auto) Urine Creatinine Urine Total Protein Fluid Total Protein Vancomycin Trough Rheumatoid Factor Complement C4 Miscellaneous Test Crossmatch 11/30/16 11/30/16 11/30/16 04:17 04:17 04:32 WBC 12.0 H RBC 2.80 L Hgb 7.8 L Hct 23.6 L MCV MCH MCHC RDW 16.6 H Plt Count Lymph % (Auto) [place] % (Auto) 11.3 H Lymph # [place] # 1.4 H Baso # Seg Neutrophils % Seg Neuts % (Manual) Lymphocytes % (Manual) Monocytes % (Manual) Eosinophils % (Manual) Basophils % (Manual) Nucleated RBC % Seg Neutrophils # 8.2 H Seg Neutrophils # Man Lymphocytes # (Manual) Monocytes # (Manual) Eosinophils # (Manual) Basophils # (Manual) PT INR Fibrinogen dRVVT Confirm Interp Factor V Activity POC ABG pH POC ABG pCO2 POC ABG pO2 ABG pO2 ABG HCO3 ABG Base Excess ABG Hemoglobin Oxyhemoglobin Sodium 169 H* D Potassium 5.1 H Chloride 121.5 H Carbon Dioxide BUN 34 H Creatinine 1.3 H D Glucose 133 H POC Glucose 131 H Lactic Acid Calcium 10.3 H Phosphorus Magnesium Direct Bilirubin AST ALT Alkaline Phosphatase Lactate Dehydrogenase Troponin T C-Reactive Protein Total Protein Albumin Prealbumin Triglycerides Cholesterol LDL Cholesterol Direct HDL Cholesterol Urine pH Urine WBC (Auto) Urine Creatinine Urine Total Protein Fluid Total Protein Vancomycin Trough Rheumatoid Factor Complement C4 Miscellaneous Test Crossmatch 11/30/16 11/30/16 11/30/16 05:45 11:10 17:26 WBC RBC Hgb Hct MCV MCH MCHC RDW Plt Count Lymph % (Auto) [place] % (Auto) Lymph # [place] # Baso # Seg Neutrophils % Seg Neuts % (Manual) Lymphocytes % (Manual) Monocytes % (Manual) Eosinophils % (Manual) Basophils % (Manual) Nucleated RBC % Seg Neutrophils # Seg Neutrophils # Man Lymphocytes # (Manual) Monocytes # (Manual) Eosinophils # (Manual) Basophils # (Manual) PT INR Fibrinogen dRVVT Confirm Interp Factor V Activity POC ABG pH POC ABG pCO2 POC ABG pO2 ABG pO2 ABG HCO3 ABG Base Excess ABG Hemoglobin Oxyhemoglobin Sodium Potassium Chloride Carbon Dioxide BUN 45 H Creatinine 1.6 H Glucose 131 H POC Glucose 146 H 134 H Lactic Acid Calcium Phosphorus Magnesium Direct Bilirubin AST ALT Alkaline Phosphatase Lactate Dehydrogenase Troponin T C-Reactive Protein Total Protein Albumin Prealbumin Triglycerides Cholesterol LDL Cholesterol Direct HDL Cholesterol Urine pH Urine WBC (Auto) Urine Creatinine Urine Total Protein Fluid Total Protein Vancomycin Trough Rheumatoid Factor Complement C4 Miscellaneous Test Crossmatch 11/30/16 12/01/16 12/01/16 23:35 00:06 03:35 WBC RBC Hgb Hct MCV MCH MCHC RDW Plt Count Lymph % (Auto) [place] % (Auto) Lymph # [place] # Baso # Seg Neutrophils % Seg Neuts % (Manual) Lymphocytes % (Manual) Monocytes % (Manual) Eosinophils % (Manual) Basophils % (Manual) Nucleated RBC % Seg Neutrophils # Seg Neutrophils # Man Lymphocytes # (Manual) Monocytes # (Manual) Eosinophils # (Manual) Basophils # (Manual) PT INR Fibrinogen dRVVT Confirm Interp Factor V Activity POC ABG pH POC ABG pCO2 POC ABG pO2 ABG pO2 ABG HCO3 ABG Base Excess ABG Hemoglobin 6.9 L Oxyhemoglobin Sodium Potassium Chloride Carbon Dioxide BUN 58 H Creatinine 1.8 H Glucose 146 H POC Glucose 151 H Lactic Acid Calcium Phosphorus Magnesium Direct Bilirubin AST ALT Alkaline Phosphatase Lactate Dehydrogenase Troponin T C-Reactive Protein Total Protein Albumin Prealbumin Triglycerides Cholesterol LDL Cholesterol Direct HDL Cholesterol Urine pH Urine WBC (Auto) Urine Creatinine Urine Total Protein Fluid Total Protein Vancomycin Trough Rheumatoid Factor Complement C4 Miscellaneous Test Crossmatch 12/01/16 12/01/16 12/01/16 03:35 05:47 11:52 WBC 12.3 H RBC 2.82 L Hgb 7.8 L Hct 23.7 L MCV MCH MCHC RDW 16.7 H Plt Count Lymph % (Auto) [place] % (Auto) 9.8 H Lymph # [place] # 1.2 H Baso # Seg Neutrophils % Seg Neuts % (Manual) Lymphocytes % (Manual) Monocytes % (Manual) Eosinophils % (Manual) Basophils % (Manual) Nucleated RBC % Seg Neutrophils # 8.4 H Seg Neutrophils # Man Lymphocytes # (Manual) Monocytes # (Manual) Eosinophils # (Manual) Basophils # (Manual) PT INR Fibrinogen dRVVT Confirm Interp Factor V Activity POC ABG pH POC ABG pCO2 POC ABG pO2 ABG pO2 ABG HCO3 ABG Base Excess ABG Hemoglobin Oxyhemoglobin Sodium Potassium Chloride Carbon Dioxide BUN Creatinine Glucose POC Glucose 152 H 152 H Lactic Acid Calcium Phosphorus Magnesium Direct Bilirubin AST ALT Alkaline Phosphatase Lactate Dehydrogenase Troponin T C-Reactive Protein Total Protein Albumin Prealbumin Triglycerides Cholesterol LDL Cholesterol Direct HDL Cholesterol Urine pH Urine WBC (Auto) Urine Creatinine Urine Total Protein Fluid Total Protein Vancomycin Trough Rheumatoid Factor Complement C4 Miscellaneous Test Crossmatch 12/01/16 12/01/16 12/02/16 17:40 23:41 05:00 WBC RBC Hgb Hct MCV MCH MCHC RDW Plt Count Lymph % (Auto) [place] % (Auto) Lymph # [place] # Baso # Seg Neutrophils % Seg Neuts % (Manual) Lymphocytes % (Manual) Monocytes % (Manual) Eosinophils % (Manual) Basophils % (Manual) Nucleated RBC % Seg Neutrophils # Seg Neutrophils # Man Lymphocytes # (Manual) Monocytes # (Manual) Eosinophils # (Manual) Basophils # (Manual) PT INR Fibrinogen dRVVT Confirm Interp Factor V Activity POC ABG pH POC ABG pCO2 POC ABG pO2 ABG pO2 ABG HCO3 ABG Base Excess ABG Hemoglobin Oxyhemoglobin Sodium Potassium Chloride Carbon Dioxide BUN 45 H Creatinine Glucose 115 H POC Glucose 140 H 144 H Lactic Acid Calcium Phosphorus Magnesium Direct Bilirubin AST ALT Alkaline Phosphatase Lactate Dehydrogenase Troponin T C-Reactive Protein Total Protein Albumin Prealbumin Triglycerides Cholesterol LDL Cholesterol Direct HDL Cholesterol Urine pH Urine WBC (Auto) Urine Creatinine Urine Total Protein Fluid Total Protein Vancomycin Trough Rheumatoid Factor Complement C4 Miscellaneous Test Crossmatch 12/02/16 12/02/16 12/02/16 05:31 11:20 17:38 WBC RBC Hgb Hct MCV MCH MCHC RDW Plt Count Lymph % (Auto) [place] % (Auto) Lymph # Trigg # Baso # Seg Neutrophils % Seg Neuts % (Manual) Lymphocytes % (Manual) Monocytes % (Manual) Eosinophils % (Manual) Basophils % (Manual) Nucleated RBC % Seg Neutrophils # Seg Neutrophils # Man Lymphocytes # (Manual) Monocytes # (Manual) Eosinophils # (Manual) Basophils # (Manual) PT INR Fibrinogen dRVVT Confirm Interp Factor V Activity POC ABG pH POC ABG pCO2 POC ABG pO2 ABG pO2 ABG HCO3 ABG Base Excess ABG Hemoglobin Oxyhemoglobin Sodium Potassium Chloride Carbon Dioxide BUN Creatinine Glucose POC Glucose 136 H 177 H 139 H Lactic Acid Calcium Phosphorus Magnesium Direct Bilirubin AST ALT Alkaline Phosphatase Lactate Dehydrogenase Troponin T C-Reactive Protein Total Protein Albumin Prealbumin Triglycerides Cholesterol LDL Cholesterol Direct HDL Cholesterol Urine pH Urine WBC (Auto) Urine Creatinine Urine Total Protein Fluid Total Protein Vancomycin Trough Rheumatoid Factor Complement C4 Miscellaneous Test Crossmatch 12/02/16 12/03/16 12/03/16 23:43 04:00 04:00 WBC 20.4 H RBC 2.74 L Hgb 7.4 L Hct 23.6 L MCV MCH 27 L MCHC RDW 17.1 H Plt Count Lymph % (Auto) [place] % (Auto) Lymph # [place] # Baso # Seg Neutrophils % Seg Neuts % (Manual) 31.0 L Lymphocytes % (Manual) Monocytes % (Manual) Eosinophils % (Manual) Basophils % (Manual) Nucleated RBC % Seg Neutrophils # Seg Neutrophils # Man Lymphocytes # (Manual) Monocytes # (Manual) Eosinophils # (Manual) Basophils # (Manual) PT INR Fibrinogen dRVVT Confirm Interp Factor V Activity POC ABG pH POC ABG pCO2 POC ABG pO2 ABG pO2 ABG HCO3 ABG Base Excess ABG Hemoglobin Oxyhemoglobin Sodium Potassium Chloride Carbon Dioxide BUN 61 H Creatinine 1.6 H Glucose 119 H POC Glucose 158 H Lactic Acid Calcium Phosphorus Magnesium Direct Bilirubin AST ALT Alkaline Phosphatase Lactate Dehydrogenase Troponin T C-Reactive Protein Total Protein Albumin Prealbumin Triglycerides Cholesterol LDL Cholesterol Direct HDL Cholesterol Urine pH Urine WBC (Auto) Urine Creatinine Urine Total Protein Fluid Total Protein Vancomycin Trough Rheumatoid Factor Complement C4 Miscellaneous Test Crossmatch 12/03/16 12/03/16 12/03/16 05:02 12:11 18:16 WBC RBC Hgb Hct MCV MCH MCHC RDW Plt Count Lymph % (Auto) [place] % (Auto) Lymph # [place] # Baso # Seg Neutrophils % Seg Neuts % (Manual) Lymphocytes % (Manual) Monocytes % (Manual) Eosinophils % (Manual) Basophils % (Manual) Nucleated RBC % Seg Neutrophils # Seg Neutrophils # Man Lymphocytes # (Manual) Monocytes # (Manual) Eosinophils # (Manual) Basophils # (Manual) PT INR Fibrinogen dRVVT Confirm Interp Factor V Activity POC ABG pH POC ABG pCO2 POC ABG pO2 ABG pO2 ABG HCO3 ABG Base Excess ABG Hemoglobin Oxyhemoglobin Sodium Potassium Chloride Carbon Dioxide BUN Creatinine Glucose POC Glucose 146 H 157 H 124 H Lactic Acid Calcium Phosphorus Magnesium Direct Bilirubin AST ALT Alkaline Phosphatase Lactate Dehydrogenase Troponin T C-Reactive Protein Total Protein Albumin Prealbumin Triglycerides Cholesterol LDL Cholesterol Direct HDL Cholesterol Urine pH Urine WBC (Auto) Urine Creatinine Urine Total Protein Fluid Total Protein Vancomycin Trough Rheumatoid Factor Complement C4 Miscellaneous Test Crossmatch 12/03/16 12/04/16 12/04/16 23:41 04:00 04:45 WBC RBC Hgb Hct MCV MCH MCHC RDW Plt Count Lymph % (Auto) [place] % (Auto) Lymph # [place] # Baso # Seg Neutrophils % Seg Neuts % (Manual) Lymphocytes % (Manual) Monocytes % (Manual) Eosinophils % (Manual) Basophils % (Manual) Nucleated RBC % Seg Neutrophils # Seg Neutrophils # Man Lymphocytes # (Manual) Monocytes # (Manual) Eosinophils # (Manual) Basophils # (Manual) PT INR Fibrinogen dRVVT Confirm Interp Factor V Activity POC ABG pH POC ABG pCO2 POC ABG pO2 ABG pO2 ABG HCO3 ABG Base Excess ABG Hemoglobin Oxyhemoglobin Sodium Potassium Chloride Carbon Dioxide BUN 76 H Creatinine 1.6 H Glucose POC Glucose 130 H 136 H Lactic Acid Calcium Phosphorus Magnesium Direct Bilirubin AST ALT Alkaline Phosphatase 155 H Lactate Dehydrogenase Troponin T C-Reactive Protein Total Protein 5.5 L Albumin 1.5 L Prealbumin Triglycerides Cholesterol LDL Cholesterol Direct HDL Cholesterol Urine pH Urine WBC (Auto) Urine Creatinine Urine Total Protein Fluid Total Protein Vancomycin Trough Rheumatoid Factor Complement C4 Miscellaneous Test Crossmatch 12/04/16 12/04/16 12/05/16 12:08 17:23 00:10 WBC RBC Hgb Hct MCV MCH MCHC RDW Plt Count Lymph % (Auto) [place] % (Auto) Lymph # [place] # Baso # Seg Neutrophils % Seg Neuts % (Manual) Lymphocytes % (Manual) Monocytes % (Manual) Eosinophils % (Manual) Basophils % (Manual) Nucleated RBC % Seg Neutrophils # Seg Neutrophils # Man Lymphocytes # (Manual) Monocytes # (Manual) Eosinophils # (Manual) Basophils # (Manual) PT INR Fibrinogen dRVVT Confirm Interp Factor V Activity POC ABG pH POC ABG pCO2 POC ABG pO2 ABG pO2 ABG HCO3 ABG Base Excess ABG Hemoglobin Oxyhemoglobin Sodium Potassium Chloride Carbon Dioxide BUN Creatinine Glucose POC Glucose 114 H 129 H 124 H Lactic Acid Calcium Phosphorus Magnesium Direct Bilirubin AST ALT Alkaline Phosphatase Lactate Dehydrogenase Troponin T C-Reactive Protein Total Protein Albumin Prealbumin Triglycerides Cholesterol LDL Cholesterol Direct HDL Cholesterol Urine pH Urine WBC (Auto) Urine Creatinine Urine Total Protein Fluid Total Protein Vancomycin Trough Rheumatoid Factor Complement C4 Miscellaneous Test Crossmatch 12/05/16 12/05/16 12/05/16 05:00 05:00 05:18 WBC RBC Hgb Hct MCV MCH MCHC RDW Plt Count Lymph % (Auto) [place] % (Auto) Lymph # [place] # Baso # Seg Neutrophils % Seg Neuts % (Manual) Lymphocytes % (Manual) Monocytes % (Manual) Eosinophils % (Manual) Basophils % (Manual) Nucleated RBC % Seg Neutrophils # Seg Neutrophils # Man Lymphocytes # (Manual) Monocytes # (Manual) Eosinophils # (Manual) Basophils # (Manual) PT INR Fibrinogen dRVVT Confirm Interp Factor V Activity POC ABG pH POC ABG pCO2 POC ABG pO2 ABG pO2 ABG HCO3 ABG Base Excess ABG Hemoglobin Oxyhemoglobin Sodium Potassium Chloride Carbon Dioxide 21 L BUN 85 H Creatinine 1.9 H Glucose 131 H POC Glucose 154 H Lactic Acid Calcium Phosphorus Magnesium Direct Bilirubin AST ALT Alkaline Phosphatase Lactate Dehydrogenase Troponin T C-Reactive Protein 19.30 H Total Protein Albumin Prealbumin Triglycerides Cholesterol LDL Cholesterol Direct HDL Cholesterol Urine pH Urine WBC (Auto) Urine Creatinine Urine Total Protein Fluid Total Protein Vancomycin Trough Rheumatoid Factor Complement C4 Miscellaneous Test Crossmatch 12/05/16 12/05/16 12/05/16 11:43 17:46 23:25 WBC RBC Hgb Hct MCV MCH MCHC RDW Plt Count Lymph % (Auto) [place] % (Auto) Lymph # [place] # Baso # Seg Neutrophils % Seg Neuts % (Manual) Lymphocytes % (Manual) Monocytes % (Manual) Eosinophils % (Manual) Basophils % (Manual) Nucleated RBC % Seg Neutrophils # Seg Neutrophils # Man Lymphocytes # (Manual) Monocytes # (Manual) Eosinophils # (Manual) Basophils # (Manual) PT INR Fibrinogen dRVVT Confirm Interp Factor V Activity POC ABG pH POC ABG pCO2 POC ABG pO2 ABG pO2 ABG HCO3 ABG Base Excess ABG Hemoglobin Oxyhemoglobin Sodium Potassium Chloride Carbon Dioxide BUN Creatinine Glucose POC Glucose 117 H 113 H 111 H Lactic Acid Calcium Phosphorus Magnesium Direct Bilirubin AST ALT Alkaline Phosphatase Lactate Dehydrogenase Troponin T C-Reactive Protein Total Protein Albumin Prealbumin Triglycerides Cholesterol LDL Cholesterol Direct HDL Cholesterol Urine pH Urine WBC (Auto) Urine Creatinine Urine Total Protein Fluid Total Protein Vancomycin Trough Rheumatoid Factor Complement C4 Miscellaneous Test Crossmatch 10/12/06/16 12/06/16 Unknown 04:58 06:00 WBC RBC Hgb Hct MCV MCH MCHC RDW Plt Count Lymph % (Auto) [place] % (Auto) Lymph # [place] # Baso # Seg Neutrophils % Seg Neuts % (Manual) Lymphocytes % (Manual) Monocytes % (Manual) Eosinophils % (Manual) Basophils % (Manual) Nucleated RBC % Seg Neutrophils # Seg Neutrophils # Man Lymphocytes # (Manual) Monocytes # (Manual) Eosinophils # (Manual) Basophils # (Manual) PT INR Fibrinogen dRVVT Confirm Interp Factor V Activity POC ABG pH POC ABG pCO2 POC ABG pO2 ABG pO2 75.2 L ABG HCO3 ABG Base Excess -3.4 L ABG Hemoglobin 7.4 L Oxyhemoglobin 94.5 L Sodium Potassium Chloride Carbon Dioxide 20 L BUN 99 H Creatinine 2.1 H Glucose 126 H POC Glucose 145 H Lactic Acid Calcium Phosphorus 4.80 H Magnesium Direct Bilirubin AST ALT Alkaline Phosphatase Lactate Dehydrogenase Troponin T C-Reactive Protein Total Protein Albumin Prealbumin Triglycerides Cholesterol LDL Cholesterol Direct HDL Cholesterol Urine pH Urine WBC (Auto) Urine Creatinine Urine Total Protein Fluid Total Protein Vancomycin Trough Rheumatoid Factor Complement C4 Miscellaneous Test Crossmatch 12/06/16 12/06/16 12/06/16 06:46 11:54 17:55 WBC RBC Hgb 8.3 L Hct 26.4 L MCV MCH MCHC RDW Plt Count Lymph % (Auto) [place] % (Auto) Lymph # [place] # Baso # Seg Neutrophils % Seg Neuts % (Manual) Lymphocytes % (Manual) Monocytes % (Manual) Eosinophils % (Manual) Basophils % (Manual) Nucleated RBC % Seg Neutrophils # Seg Neutrophils # Man Lymphocytes # (Manual) Monocytes # (Manual) Eosinophils # (Manual) Basophils # (Manual) PT INR Fibrinogen dRVVT Confirm Interp Factor V Activity POC ABG pH POC ABG pCO2 POC ABG pO2 ABG pO2 ABG HCO3 ABG Base Excess ABG Hemoglobin Oxyhemoglobin Sodium Potassium Chloride Carbon Dioxide BUN Creatinine Glucose POC Glucose 126 H 157 H Lactic Acid Calcium Phosphorus Magnesium Direct Bilirubin AST ALT Alkaline Phosphatase Lactate Dehydrogenase Troponin T C-Reactive Protein Total Protein Albumin Prealbumin Triglycerides Cholesterol LDL Cholesterol Direct HDL Cholesterol Urine pH Urine WBC (Auto) Urine Creatinine Urine Total Protein Fluid Total Protein Vancomycin Trough Rheumatoid Factor Complement C4 Miscellaneous Test Crossmatch 12/06/16 12/07/16 12/07/16 23:59 05:34 06:30 WBC RBC Hgb Hct MCV MCH MCHC RDW Plt Count Lymph % (Auto) [place] % (Auto) Lymph # [place] # Baso # Seg Neutrophils % Seg Neuts % (Manual) Lymphocytes % (Manual) Monocytes % (Manual) Eosinophils % (Manual) Basophils % (Manual) Nucleated RBC % Seg Neutrophils # Seg Neutrophils # Man Lymphocytes # (Manual) Monocytes # (Manual) Eosinophils # (Manual) Basophils # (Manual) PT INR Fibrinogen dRVVT Confirm Interp Factor V Activity POC ABG pH POC ABG pCO2 POC ABG pO2 ABG pO2 ABG HCO3 ABG Base Excess ABG Hemoglobin Oxyhemoglobin Sodium Potassium Chloride Carbon Dioxide BUN 67 H Creatinine 1.4 H Glucose 126 H POC Glucose 129 H 129 H Lactic Acid Calcium Phosphorus Magnesium Direct Bilirubin AST ALT Alkaline Phosphatase Lactate Dehydrogenase Troponin T C-Reactive Protein Total Protein Albumin Prealbumin Triglycerides Cholesterol LDL Cholesterol Direct HDL Cholesterol Urine pH Urine WBC (Auto) Urine Creatinine Urine Total Protein Fluid Total Protein Vancomycin Trough Rheumatoid Factor Complement C4 Miscellaneous Test Crossmatch 12/07/16 12/07/16 12/07/16 06:30 08:00 09:45 WBC 18.8 H RBC 2.52 L Hgb 6.9 L 6.8 L Hct 21.2 L 21.1 L MCV MCH 27 L MCHC RDW 18.0 H Plt Count Lymph % (Auto) [place] % (Auto) 9.9 H Lymph # [place] # 1.9 H Baso # Seg Neutrophils % 71.8 H Seg Neuts % (Manual) Lymphocytes % (Manual) Monocytes % (Manual) Eosinophils % (Manual) Basophils % (Manual) Nucleated RBC % Seg Neutrophils # 13.5 H Seg Neutrophils # Man Lymphocytes # (Manual) Monocytes # (Manual) Eosinophils # (Manual) Basophils # (Manual) PT INR Fibrinogen dRVVT Confirm Interp Factor V Activity POC ABG pH POC ABG pCO2 POC ABG pO2 ABG pO2 ABG HCO3 ABG Base Excess ABG Hemoglobin Oxyhemoglobin Sodium Potassium Chloride Carbon Dioxide BUN Creatinine Glucose POC Glucose Lactic Acid Calcium Phosphorus Magnesium Direct Bilirubin AST ALT Alkaline Phosphatase Lactate Dehydrogenase Troponin T C-Reactive Protein Total Protein Albumin Prealbumin Triglycerides Cholesterol LDL Cholesterol Direct HDL Cholesterol Urine pH Urine WBC (Auto) Urine Creatinine Urine Total Protein Fluid Total Protein Vancomycin Trough Rheumatoid Factor Complement C4 Miscellaneous Test Crossmatch See Detail 12/07/16 12/07/16 12/07/16 11:44 18:19 23:59 WBC RBC Hgb Hct MCV MCH MCHC RDW Plt Count Lymph % (Auto) [place] % (Auto) Lymph # [place] # Baso # Seg Neutrophils % Seg Neuts % (Manual) Lymphocytes % (Manual) Monocytes % (Manual) Eosinophils % (Manual) Basophils % (Manual) Nucleated RBC % Seg Neutrophils # Seg Neutrophils # Man Lymphocytes # (Manual) Monocytes # (Manual) Eosinophils # (Manual) Basophils # (Manual) PT INR Fibrinogen dRVVT Confirm Interp Factor V Activity POC ABG pH POC ABG pCO2 POC ABG pO2 ABG pO2 ABG HCO3 ABG Base Excess ABG Hemoglobin Oxyhemoglobin Sodium Potassium Chloride Carbon Dioxide BUN Creatinine Glucose POC Glucose 137 H 138 H 133 H Lactic Acid Calcium Phosphorus Magnesium Direct Bilirubin AST ALT Alkaline Phosphatase Lactate Dehydrogenase Troponin T C-Reactive Protein Total Protein Albumin Prealbumin Triglycerides Cholesterol LDL Cholesterol Direct HDL Cholesterol Urine pH Urine WBC (Auto) Urine Creatinine Urine Total Protein Fluid Total Protein Vancomycin Trough Rheumatoid Factor Complement C4 Miscellaneous Test Crossmatch 12/08/16 12/08/16 12/08/16 05:25 05:30 05:30 WBC 23.8 H RBC 2.88 L Hgb 8.1 L Hct 24.3 L MCV MCH MCHC RDW 16.7 H Plt Count Lymph % (Auto) [place] % (Auto) Lymph # [place] # Baso # Seg Neutrophils % Seg Neuts % (Manual) 76.0 H Lymphocytes % (Manual) 9.0 L Monocytes % (Manual) 9.0 H Eosinophils % (Manual) Basophils % (Manual) Nucleated RBC % Seg Neutrophils # Seg Neutrophils # Man 18.1 H Lymphocytes # (Manual) Monocytes # (Manual) 2.1 H Eosinophils # (Manual) Basophils # (Manual) PT INR Fibrinogen dRVVT Confirm Interp Factor V Activity POC ABG pH POC ABG pCO2 POC ABG pO2 ABG pO2 ABG HCO3 ABG Base Excess ABG Hemoglobin Oxyhemoglobin Sodium Potassium Chloride Carbon Dioxide 21 L BUN 76 H Creatinine 1.6 H Glucose 133 H POC Glucose 177 H Lactic Acid Calcium Phosphorus Magnesium Direct Bilirubin AST ALT Alkaline Phosphatase Lactate Dehydrogenase Troponin T C-Reactive Protein Total Protein Albumin Prealbumin Triglycerides Cholesterol LDL Cholesterol Direct HDL Cholesterol Urine pH Urine WBC (Auto) Urine Creatinine Urine Total Protein Fluid Total Protein Vancomycin Trough Rheumatoid Factor Complement C4 Miscellaneous Test Crossmatch 12/08/16 12/08/1612/09/17 11:45 18:00 00:00 WBC RBC Hgb Hct MCV MCH MCHC RDW Plt Count Lymph % (Auto) [place] % (Auto) Lymph # [place] # Baso # Seg Neutrophils % Seg Neuts % (Manual) Lymphocytes % (Manual) Monocytes % (Manual) Eosinophils % (Manual) Basophils % (Manual) Nucleated RBC % Seg Neutrophils # Seg Neutrophils # Man Lymphocytes # (Manual) Monocytes # (Manual) Eosinophils # (Manual) Basophils # (Manual) PT INR Fibrinogen dRVVT Confirm Interp Factor V Activity POC ABG pH POC ABG pCO2 POC ABG pO2 ABG pO2 ABG HCO3 ABG Base Excess ABG Hemoglobin Oxyhemoglobin Sodium Potassium Chloride Carbon Dioxide BUN Creatinine Glucose POC Glucose 163 H 123 H 137 H Lactic Acid Calcium Phosphorus Magnesium Direct Bilirubin AST ALT Alkaline Phosphatase Lactate Dehydrogenase Troponin T C-Reactive Protein Total Protein Albumin Prealbumin Triglycerides Cholesterol LDL Cholesterol Direct HDL Cholesterol Urine pH Urine WBC (Auto) Urine Creatinine Urine Total Protein Fluid Total Protein Vancomycin Trough Rheumatoid Factor Complement C4 Miscellaneous Test Crossmatch 12/09/16 12/09/16 12/09/16 05:34 06:00 06:00 WBC 15.5 H RBC 2.87 L Hgb 8.0 L Hct 24.2 L MCV MCH MCHC RDW 17.2 H Plt Count Lymph % (Auto) [place] % (Auto) 11.6 H Lymph # [place] # 1.8 H Baso # Seg Neutrophils % 70.8 H Seg Neuts % (Manual) Lymphocytes % (Manual) Monocytes % (Manual) Eosinophils % (Manual) Basophils % (Manual) Nucleated RBC % Seg Neutrophils # 11.0 H Seg Neutrophils # Man Lymphocytes # (Manual) Monocytes # (Manual) Eosinophils # (Manual) Basophils # (Manual) PT INR Fibrinogen dRVVT Confirm Interp Factor V Activity POC ABG pH POC ABG pCO2 POC ABG pO2 ABG pO2 ABG HCO3 ABG Base Excess ABG Hemoglobin Oxyhemoglobin Sodium Potassium Chloride Carbon Dioxide BUN 51 H Creatinine Glucose 117 H POC Glucose 136 H Lactic Acid Calcium Phosphorus Magnesium Direct Bilirubin AST ALT Alkaline Phosphatase Lactate Dehydrogenase Troponin T C-Reactive Protein Total Protein Albumin Prealbumin Triglycerides Cholesterol LDL Cholesterol Direct HDL Cholesterol Urine pH Urine WBC (Auto) Urine Creatinine Urine Total Protein Fluid Total Protein Vancomycin Trough Rheumatoid Factor Complement C4 Miscellaneous Test Crossmatch 12/09/16 12/09/16 12/09/16 12:29 17:52 23:10 WBC RBC Hgb Hct MCV MCH MCHC RDW Plt Count Lymph % (Auto) [place] % (Auto) Lymph # [place] # Baso # Seg Neutrophils % Seg Neuts % (Manual) Lymphocytes % (Manual) Monocytes % (Manual) Eosinophils % (Manual) Basophils % (Manual) Nucleated RBC % Seg Neutrophils # Seg Neutrophils # Man Lymphocytes # (Manual) Monocytes # (Manual) Eosinophils # (Manual) Basophils # (Manual) PT INR Fibrinogen dRVVT Confirm Interp Factor V Activity POC ABG pH POC ABG pCO2 POC ABG pO2 ABG pO2 ABG HCO3 ABG Base Excess ABG Hemoglobin Oxyhemoglobin Sodium Potassium Chloride Carbon Dioxide BUN Creatinine Glucose POC Glucose 139 H 140 H 129 H Lactic Acid Calcium Phosphorus Magnesium Direct Bilirubin AST ALT Alkaline Phosphatase Lactate Dehydrogenase Troponin T C-Reactive Protein Total Protein Albumin Prealbumin Triglycerides Cholesterol LDL Cholesterol Direct HDL Cholesterol Urine pH Urine WBC (Auto) Urine Creatinine Urine Total Protein Fluid Total Protein Vancomycin Trough Rheumatoid Factor Complement C4 Miscellaneous Test Crossmatch 12/10/16 12/10/16 12/10/16 05:00 05:00 06:54 WBC 15.7 H RBC 2.87 L Hgb 8.2 L Hct 24.4 L MCV MCH MCHC RDW 17.2 H Plt Count Lymph % (Auto) [place] % (Auto) 8.3 H Lymph # [place] # 1.3 H Baso # Seg Neutrophils % 72.8 H Seg Neuts % (Manual) Lymphocytes % (Manual) Monocytes % (Manual) Eosinophils % (Manual) Basophils % (Manual) Nucleated RBC % Seg Neutrophils # 11.4 H Seg Neutrophils # Man Lymphocytes # (Manual) Monocytes # (Manual) Eosinophils # (Manual) Basophils # (Manual) PT INR Fibrinogen dRVVT Confirm Interp Factor V Activity POC ABG pH POC ABG pCO2 POC ABG pO2 ABG pO2 ABG HCO3 ABG Base Excess ABG Hemoglobin Oxyhemoglobin Sodium Potassium Chloride Carbon Dioxide BUN 64 H Creatinine 1.4 H Glucose 134 H POC Glucose 154 H Lactic Acid Calcium Phosphorus Magnesium Direct Bilirubin AST ALT Alkaline Phosphatase Lactate Dehydrogenase Troponin T C-Reactive Protein Total Protein Albumin Prealbumin Triglycerides Cholesterol LDL Cholesterol Direct HDL Cholesterol Urine pH Urine WBC (Auto) Urine Creatinine Urine Total Protein Fluid Total Protein Vancomycin Trough Rheumatoid Factor Complement C4 Miscellaneous Test Crossmatch 12/10/16 12/10/16 12/10/16 11:58 17:29 23:52 WBC RBC Hgb Hct MCV MCH MCHC RDW Plt Count Lymph % (Auto) [place] % (Auto) Lymph # [place] # Baso # Seg Neutrophils % Seg Neuts % (Manual) Lymphocytes % (Manual) Monocytes % (Manual) Eosinophils % (Manual) Basophils % (Manual) Nucleated RBC % Seg Neutrophils # Seg Neutrophils # Man Lymphocytes # (Manual) Monocytes # (Manual) Eosinophils # (Manual) Basophils # (Manual) PT INR Fibrinogen dRVVT Confirm Interp Factor V Activity POC ABG pH POC ABG pCO2 POC ABG pO2 ABG pO2 ABG HCO3 ABG Base Excess ABG Hemoglobin Oxyhemoglobin Sodium Potassium Chloride Carbon Dioxide BUN Creatinine Glucose POC Glucose 144 H 163 H 125 H Lactic Acid Calcium Phosphorus Magnesium Direct Bilirubin AST ALT Alkaline Phosphatase Lactate Dehydrogenase Troponin T C-Reactive Protein Total Protein Albumin Prealbumin Triglycerides Cholesterol LDL Cholesterol Direct HDL Cholesterol Urine pH Urine WBC (Auto) Urine Creatinine Urine Total Protein Fluid Total Protein Vancomycin Trough Rheumatoid Factor Complement C4 Miscellaneous Test Crossmatch 12/11/16 12/11/16 12/11/16 05:38 06:30 06:30 WBC 14.4 H RBC 2.76 L Hgb 7.7 L Hct 23.4 L MCV MCH MCHC RDW 17.2 H Plt Count Lymph % (Auto) [place] % (Auto) 8.8 H Lymph # [place] # 1.3 H Baso # Seg Neutrophils % 72.5 H Seg Neuts % (Manual) Lymphocytes % (Manual) Monocytes % (Manual) Eosinophils % (Manual) Basophils % (Manual) Nucleated RBC % Seg Neutrophils # 10.5 H Seg Neutrophils # Man Lymphocytes # (Manual) Monocytes # (Manual) Eosinophils # (Manual) Basophils # (Manual) PT INR Fibrinogen dRVVT Confirm Interp Factor V Activity POC ABG pH POC ABG pCO2 POC ABG pO2 ABG pO2 ABG HCO3 ABG Base Excess ABG Hemoglobin Oxyhemoglobin Sodium Potassium Chloride Carbon Dioxide BUN 43 H Creatinine Glucose 124 H POC Glucose 141 H Lactic Acid Calcium 8.3 L Phosphorus Magnesium 1.60 L Direct Bilirubin AST ALT Alkaline Phosphatase Lactate Dehydrogenase Troponin T C-Reactive Protein Total Protein Albumin Prealbumin Triglycerides Cholesterol LDL Cholesterol Direct HDL Cholesterol Urine pH Urine WBC (Auto) Urine Creatinine Urine Total Protein Fluid Total Protein Vancomycin Trough Rheumatoid Factor Complement C4 Miscellaneous Test Crossmatch 12/11/16 12/11/16 12/11/16 11:15 17:59 23:48 WBC RBC Hgb Hct MCV MCH MCHC RDW Plt Count Lymph % (Auto) [place] % (Auto) Lymph # [place] # Baso # Seg Neutrophils % Seg Neuts % (Manual) Lymphocytes % (Manual) Monocytes % (Manual) Eosinophils % (Manual) Basophils % (Manual) Nucleated RBC % Seg Neutrophils # Seg Neutrophils # Man Lymphocytes # (Manual) Monocytes # (Manual) Eosinophils # (Manual) Basophils # (Manual) PT INR Fibrinogen dRVVT Confirm Interp Factor V Activity POC ABG pH POC ABG pCO2 POC ABG pO2 ABG pO2 ABG HCO3 ABG Base Excess ABG Hemoglobin Oxyhemoglobin Sodium Potassium Chloride Carbon Dioxide BUN Creatinine Glucose POC Glucose 188 H 106 H 119 H Lactic Acid Calcium Phosphorus Magnesium Direct Bilirubin AST ALT Alkaline Phosphatase Lactate Dehydrogenase Troponin T C-Reactive Protein Total Protein Albumin Prealbumin Triglycerides Cholesterol LDL Cholesterol Direct HDL Cholesterol Urine pH Urine WBC (Auto) Urine Creatinine Urine Total Protein Fluid Total Protein Vancomycin Trough Rheumatoid Factor Complement C4 Miscellaneous Test Crossmatch 12/12/16 12/12/16 12/12/16 05:00 06:01 12:20 WBC 16.7 H RBC 2.87 L Hgb 8.0 L Hct 24.2 L MCV MCH MCHC RDW 17.6 H Plt Count Lymph % (Auto) [place] % (Auto) Lymph # [place] # 1.2 H Baso # Seg Neutrophils % 75.3 H Seg Neuts % (Manual) Lymphocytes % (Manual) Monocytes % (Manual) Eosinophils % (Manual) Basophils % (Manual) Nucleated RBC % Seg Neutrophils # 12.6 H Seg Neutrophils # Man Lymphocytes # (Manual) Monocytes # (Manual) Eosinophils # (Manual) Basophils # (Manual) PT INR Fibrinogen dRVVT Confirm Interp Factor V Activity POC ABG pH POC ABG pCO2 POC ABG pO2 ABG pO2 ABG HCO3 ABG Base Excess ABG Hemoglobin Oxyhemoglobin Sodium Potassium Chloride Carbon Dioxide BUN Creatinine Glucose POC Glucose 134 H 149 H Lactic Acid Calcium Phosphorus Magnesium Direct Bilirubin AST ALT Alkaline Phosphatase Lactate Dehydrogenase Troponin T C-Reactive Protein Total Protein Albumin Prealbumin Triglycerides Cholesterol LDL Cholesterol Direct HDL Cholesterol Urine pH Urine WBC (Auto) Urine Creatinine Urine Total Protein Fluid Total Protein Vancomycin Trough Rheumatoid Factor Complement C4 Miscellaneous Test Crossmatch 12/12/16 12/12/16 12/12/16 17:38 23:01 Unknown WBC RBC Hgb Hct MCV MCH MCHC RDW Plt Count Lymph % (Auto) [place] % (Auto) Lymph # [place] # Baso # Seg Neutrophils % Seg Neuts % (Manual) Lymphocytes % (Manual) Monocytes % (Manual) Eosinophils % (Manual) Basophils % (Manual) Nucleated RBC % Seg Neutrophils # Seg Neutrophils # Man Lymphocytes # (Manual) Monocytes # (Manual) Eosinophils # (Manual) Basophils # (Manual) PT INR Fibrinogen dRVVT Confirm Interp Factor V Activity POC ABG pH POC ABG pCO2 POC ABG pO2 ABG pO2 ABG HCO3 ABG Base Excess ABG Hemoglobin Oxyhemoglobin Sodium Potassium Chloride Carbon Dioxide BUN 60 H Creatinine 1.3 H Glucose 126 H POC Glucose 127 H 144 H Lactic Acid Calcium Phosphorus Magnesium Direct Bilirubin AST ALT Alkaline Phosphatase Lactate Dehydrogenase Troponin T C-Reactive Protein Total Protein Albumin Prealbumin Triglycerides Cholesterol LDL Cholesterol Direct HDL Cholesterol Urine pH Urine WBC (Auto) Urine Creatinine Urine Total Protein Fluid Total Protein Vancomycin Trough Rheumatoid Factor Complement C4 Miscellaneous Test Crossmatch 12/13/16 12/13/16 12/13/16 04:00 04:00 05:19 WBC 18.7 H RBC 2.89 L Hgb 8.3 L Hct 24.6 L MCV MCH MCHC RDW 17.5 H Plt Count Lymph % (Auto) Trigg % (Auto) Lymph # Trigg # 1.3 H Baso # Seg Neutrophils % 71.5 H Seg Neuts % (Manual) Lymphocytes % (Manual) Monocytes % (Manual) Eosinophils % (Manual) Basophils % (Manual) Nucleated RBC % Seg Neutrophils # 13.4 H Seg Neutrophils # Man Lymphocytes # (Manual) Monocytes # (Manual) Eosinophils # (Manual) Basophils # (Manual) PT INR Fibrinogen dRVVT Confirm Interp Factor V Activity POC ABG pH POC ABG pCO2 POC ABG pO2 ABG pO2 ABG HCO3 ABG Base Excess ABG Hemoglobin Oxyhemoglobin Sodium Potassium Chloride Carbon Dioxide BUN 73 H Creatinine 1.5 H Glucose 141 H POC Glucose 171 H Lactic Acid Calcium Phosphorus Magnesium Direct Bilirubin AST ALT Alkaline Phosphatase Lactate Dehydrogenase Troponin T C-Reactive Protein Total Protein Albumin Prealbumin Triglycerides Cholesterol LDL Cholesterol Direct HDL Cholesterol Urine pH Urine WBC (Auto) Urine Creatinine Urine Total Protein Fluid Total Protein Vancomycin Trough Rheumatoid Factor Complement C4 Miscellaneous Test Crossmatch 12/13/16 12/13/16 12/14/16 12:28 16:48 00:01 WBC RBC Hgb Hct MCV MCH MCHC RDW Plt Count Lymph % (Auto) Trigg % (Auto) Lymph # Trigg # Baso # Seg Neutrophils % Seg Neuts % (Manual) Lymphocytes % (Manual) Monocytes % (Manual) Eosinophils % (Manual) Basophils % (Manual) Nucleated RBC % Seg Neutrophils # Seg Neutrophils # Man Lymphocytes # (Manual) Monocytes # (Manual) Eosinophils # (Manual) Basophils # (Manual) PT INR Fibrinogen dRVVT Confirm Interp Factor V Activity POC ABG pH POC ABG pCO2 POC ABG pO2 ABG pO2 ABG HCO3 ABG Base Excess ABG Hemoglobin Oxyhemoglobin Sodium Potassium Chloride Carbon Dioxide BUN Creatinine Glucose POC Glucose 206 H 173 H 139 H Lactic Acid Calcium Phosphorus Magnesium Direct Bilirubin AST ALT Alkaline Phosphatase Lactate Dehydrogenase Troponin T C-Reactive Protein Total Protein Albumin Prealbumin Triglycerides Cholesterol LDL Cholesterol Direct HDL Cholesterol Urine pH Urine WBC (Auto) Urine Creatinine Urine Total Protein Fluid Total Protein Vancomycin Trough Rheumatoid Factor Complement C4 Miscellaneous Test Crossmatch 12/14/16 12/14/16 12/14/16 05:16 06:10 11:17 WBC RBC Hgb Hct MCV MCH MCHC RDW Plt Count Lymph % (Auto) Tr[place] % (Auto) Lymph # Trigg # Baso # Seg Neutrophils % Seg Neuts % (Manual) Lymphocytes % (Manual) Monocytes % (Manual) Eosinophils % (Manual) Basophils % (Manual) Nucleated RBC % Seg Neutrophils # Seg Neutrophils # Man Lymphocytes # (Manual) Monocytes # (Manual) Eosinophils # (Manual) Basophils # (Manual) PT INR Fibrinogen dRVVT Confirm Interp Factor V Activity POC ABG pH POC ABG pCO2 POC ABG pO2 ABG pO2 ABG HCO3 ABG Base Excess ABG Hemoglobin Oxyhemoglobin Sodium Potassium Chloride Carbon Dioxide BUN 57 H Creatinine 1.4 H Glucose 135 H POC Glucose 158 H 137 H Lactic Acid Calcium Phosphorus Magnesium Direct Bilirubin AST ALT Alkaline Phosphatase Lactate Dehydrogenase Troponin T C-Reactive Protein Total Protein Albumin Prealbumin Triglycerides Cholesterol LDL Cholesterol Direct HDL Cholesterol Urine pH Urine WBC (Auto) Urine Creatinine Urine Total Protein Fluid Total Protein Vancomycin Trough Rheumatoid Factor Complement C4 Miscellaneous Test Crossmatch 12/14/16 12/14/16 12/15/16 17:52 23:27 04:00 WBC RBC Hgb Hct MCV MCH MCHC RDW Plt Count Lymph % (Auto) Tr[place] % (Auto) Lymph # Trigg # Baso # Seg Neutrophils % Seg Neuts % (Manual) Lymphocytes % (Manual) Monocytes % (Manual) Eosinophils % (Manual) Basophils % (Manual) Nucleated RBC % Seg Neutrophils # Seg Neutrophils # Man Lymphocytes # (Manual) Monocytes # (Manual) Eosinophils # (Manual) Basophils # (Manual) PT INR Fibrinogen dRVVT Confirm Interp Factor V Activity POC ABG pH POC ABG pCO2 POC ABG pO2 ABG pO2 ABG HCO3 ABG Base Excess ABG Hemoglobin Oxyhemoglobin Sodium Potassium Chloride 97.9 L Carbon Dioxide BUN 75 H Creatinine 1.6 H Glucose 122 H POC Glucose 149 H 163 H Lactic Acid Calcium Phosphorus 5.20 H Magnesium Direct Bilirubin AST ALT Alkaline Phosphatase Lactate Dehydrogenase Troponin T C-Reactive Protein Total Protein Albumin Prealbumin Triglycerides Cholesterol LDL Cholesterol Direct HDL Cholesterol Urine pH Urine WBC (Auto) Urine Creatinine Urine Total Protein Fluid Total Protein Vancomycin Trough Rheumatoid Factor Complement C4 Miscellaneous Test Crossmatch 12/15/16 12/15/16 12/15/16 05:50 11:24 17:01 WBC RBC Hgb Hct MCV MCH MCHC RDW Plt Count Lymph % (Auto) [place] % (Auto) Lymph # Trigg # Baso # Seg Neutrophils % Seg Neuts % (Manual) Lymphocytes % (Manual) Monocytes % (Manual) Eosinophils % (Manual) Basophils % (Manual) Nucleated RBC % Seg Neutrophils # Seg Neutrophils # Man Lymphocytes # (Manual) Monocytes # (Manual) Eosinophils # (Manual) Basophils # (Manual) PT INR Fibrinogen dRVVT Confirm Interp Factor V Activity POC ABG pH POC ABG pCO2 POC ABG pO2 ABG pO2 ABG HCO3 ABG Base Excess ABG Hemoglobin Oxyhemoglobin Sodium Potassium Chloride Carbon Dioxide BUN Creatinine Glucose POC Glucose 150 H 146 H 167 H Lactic Acid Calcium Phosphorus Magnesium Direct Bilirubin AST ALT Alkaline Phosphatase Lactate Dehydrogenase Troponin T C-Reactive Protein Total Protein Albumin Prealbumin Triglycerides Cholesterol LDL Cholesterol Direct HDL Cholesterol Urine pH Urine WBC (Auto) Urine Creatinine Urine Total Protein Fluid Total Protein Vancomycin Trough Rheumatoid Factor Complement C4 Miscellaneous Test Crossmatch 12/15/16 12/16/16 12/16/16 23:34 05:25 11:24 WBC RBC Hgb Hct MCV MCH MCHC RDW Plt Count Lymph % (Auto) [place] % (Auto) Lymph # Trigg # Baso # Seg Neutrophils % Seg Neuts % (Manual) Lymphocytes % (Manual) Monocytes % (Manual) Eosinophils % (Manual) Basophils % (Manual) Nucleated RBC % Seg Neutrophils # Seg Neutrophils # Man Lymphocytes # (Manual) Monocytes # (Manual) Eosinophils # (Manual) Basophils # (Manual) PT INR Fibrinogen dRVVT Confirm Interp Factor V Activity POC ABG pH POC ABG pCO2 POC ABG pO2 ABG pO2 ABG HCO3 ABG Base Excess ABG Hemoglobin Oxyhemoglobin Sodium Potassium Chloride Carbon Dioxide BUN Creatinine Glucose POC Glucose 127 H 139 H 165 H Lactic Acid Calcium Phosphorus Magnesium Direct Bilirubin AST ALT Alkaline Phosphatase Lactate Dehydrogenase Troponin T C-Reactive Protein Total Protein Albumin Prealbumin Triglycerides Cholesterol LDL Cholesterol Direct HDL Cholesterol Urine pH Urine WBC (Auto) Urine Creatinine Urine Total Protein Fluid Total Protein Vancomycin Trough Rheumatoid Factor Complement C4 Miscellaneous Test Crossmatch 12/16/16 12/16/16 12/16/16 15:30 16:25 17:31 WBC 17.8 H RBC 2.38 L Hgb 6.4 L Hct 20.3 L MCV MCH 27 L MCHC RDW 17.4 H Plt Count Lymph % (Auto) [place] % (Auto) Lymph # Trigg # Baso # Seg Neutrophils % Seg Neuts % (Manual) Lymphocytes % (Manual) Monocytes % (Manual) 10.0 H Eosinophils % (Manual) Basophils % (Manual) Nucleated RBC % Seg Neutrophils # Seg Neutrophils # Man 8.5 H Lymphocytes # (Manual) Monocytes # (Manual) 1.8 H Eosinophils # (Manual) Basophils # (Manual) PT INR Fibrinogen dRVVT Confirm Interp Factor V Activity POC ABG pH POC ABG pCO2 POC ABG pO2 ABG pO2 ABG HCO3 ABG Base Excess ABG Hemoglobin Oxyhemoglobin Sodium Potassium Chloride Carbon Dioxide BUN Creatinine Glucose POC Glucose 176 H Lactic Acid Calcium Phosphorus Magnesium Direct Bilirubin AST ALT Alkaline Phosphatase Lactate Dehydrogenase Troponin T C-Reactive Protein Total Protein Albumin Prealbumin Triglycerides Cholesterol LDL Cholesterol Direct HDL Cholesterol Urine pH Urine WBC (Auto) Urine Creatinine Urine Total Protein Fluid Total Protein Vancomycin Trough Rheumatoid Factor Complement C4 Miscellaneous Test Crossmatch See Detail 12/17/16 12/17/16 12/17/16 00:14 04:00 05:00 WBC 20.0 H RBC 2.99 L Hgb 8.5 L Hct 25.7 L MCV MCH MCHC RDW 17.2 H Plt Count Lymph % (Auto) [place] % (Auto) Lymph # Trigg # Baso # Seg Neutrophils % Seg Neuts % (Manual) Lymphocytes % (Manual) Monocytes % (Manual) Eosinophils % (Manual) Basophils % (Manual) Nucleated RBC % Seg Neutrophils # Seg Neutrophils # Man Lymphocytes # (Manual) Monocytes # (Manual) Eosinophils # (Manual) Basophils # (Manual) PT INR Fibrinogen dRVVT Confirm Interp Factor V Activity POC ABG pH POC ABG pCO2 POC ABG pO2 ABG pO2 ABG HCO3 ABG Base Excess ABG Hemoglobin Oxyhemoglobin Sodium Potassium Chloride 97.7 L Carbon Dioxide BUN 73 H Creatinine 1.7 H Glucose 136 H POC Glucose 148 H Lactic Acid Calcium Phosphorus 2.20 L Magnesium 2.70 H Direct Bilirubin AST ALT Alkaline Phosphatase Lactate Dehydrogenase Troponin T C-Reactive Protein Total Protein Albumin Prealbumin Triglycerides Cholesterol LDL Cholesterol Direct HDL Cholesterol Urine pH Urine WBC (Auto) Urine Creatinine Urine Total Protein Fluid Total Protein Vancomycin Trough Rheumatoid Factor Complement C4 Miscellaneous Test Crossmatch 12/17/16 12/17/16 12/17/16 05:39 12:50 16:32 WBC RBC Hgb Hct MCV MCH MCHC RDW Plt Count Lymph % (Auto) [place] % (Auto) Lymph # Trigg # Baso # Seg Neutrophils % Seg Neuts % (Manual) Lymphocytes % (Manual) Monocytes % (Manual) Eosinophils % (Manual) Basophils % (Manual) Nucleated RBC % Seg Neutrophils # Seg Neutrophils # Man Lymphocytes # (Manual) Monocytes # (Manual) Eosinophils # (Manual) Basophils # (Manual) PT INR Fibrinogen dRVVT Confirm Interp Factor V Activity POC ABG pH POC ABG pCO2 POC ABG pO2 ABG pO2 ABG HCO3 ABG Base Excess ABG Hemoglobin Oxyhemoglobin Sodium Potassium Chloride Carbon Dioxide BUN Creatinine Glucose POC Glucose 162 H 146 H 169 H Lactic Acid Calcium Phosphorus Magnesium Direct Bilirubin AST ALT Alkaline Phosphatase Lactate Dehydrogenase Troponin T C-Reactive Protein Total Protein Albumin Prealbumin Triglycerides Cholesterol LDL Cholesterol Direct HDL Cholesterol Urine pH Urine WBC (Auto) Urine Creatinine Urine Total Protein Fluid Total Protein Vancomycin Trough Rheumatoid Factor Complement C4 Miscellaneous Test Crossmatch 12/17/16 12/18/16 12/18/16 23:57 05:00 05:32 WBC RBC Hgb Hct MCV MCH MCHC RDW Plt Count Lymph % (Auto) [place] % (Auto) Lymph # Trigg # Baso # Seg Neutrophils % Seg Neuts % (Manual) Lymphocytes % (Manual) Monocytes % (Manual) Eosinophils % (Manual) Basophils % (Manual) Nucleated RBC % Seg Neutrophils # Seg Neutrophils # Man Lymphocytes # (Manual) Monocytes # (Manual) Eosinophils # (Manual) Basophils # (Manual) PT INR Fibrinogen dRVVT Confirm Interp Factor V Activity POC ABG pH POC ABG pCO2 POC ABG pO2 ABG pO2 ABG HCO3 ABG Base Excess ABG Hemoglobin Oxyhemoglobin Sodium Potassium Chloride 97.0 L Carbon Dioxide BUN 63 H Creatinine 1.4 H Glucose 174 H POC Glucose 145 H 201 H Lactic Acid Calcium Phosphorus 1.70 L D Magnesium Direct Bilirubin AST ALT Alkaline Phosphatase 257 H Lactate Dehydrogenase Troponin T C-Reactive Protein Total Protein 5.9 L Albumin 1.8 L Prealbumin Triglycerides Cholesterol LDL Cholesterol Direct HDL Cholesterol Urine pH Urine WBC (Auto) Urine Creatinine Urine Total Protein Fluid Total Protein Vancomycin Trough Rheumatoid Factor Complement C4 Miscellaneous Test Crossmatch 12/18/16 12/18/16 12/18/16 11:43 16:52 23:52 WBC RBC Hgb Hct MCV MCH MCHC RDW Plt Count Lymph % (Auto) [place] % (Auto) Lymph # Trigg # Baso # Seg Neutrophils % Seg Neuts % (Manual) Lymphocytes % (Manual) Monocytes % (Manual) Eosinophils % (Manual) Basophils % (Manual) Nucleated RBC % Seg Neutrophils # Seg Neutrophils # Man Lymphocytes # (Manual) Monocytes # (Manual) Eosinophils # (Manual) Basophils # (Manual) PT INR Fibrinogen dRVVT Confirm Interp Factor V Activity POC ABG pH POC ABG pCO2 POC ABG pO2 ABG pO2 ABG HCO3 ABG Base Excess ABG Hemoglobin Oxyhemoglobin Sodium Potassium Chloride Carbon Dioxide BUN Creatinine Glucose POC Glucose 177 H 110 H 162 H Lactic Acid Calcium Phosphorus Magnesium Direct Bilirubin AST ALT Alkaline Phosphatase Lactate Dehydrogenase Troponin T C-Reactive Protein Total Protein Albumin Prealbumin Triglycerides Cholesterol LDL Cholesterol Direct HDL Cholesterol Urine pH Urine WBC (Auto) Urine Creatinine Urine Total Protein Fluid Total Protein Vancomycin Trough Rheumatoid Factor Complement C4 Miscellaneous Test Crossmatch 12/19/16 12/19/16 12/19/16 05:02 05:24 09:30 WBC 20.1 H RBC 2.73 L Hgb 7.6 L Hct 23.6 L MCV MCH MCHC RDW 17.6 H Plt Count Lymph % (Auto) [place] % (Auto) Lymph # Trigg # Baso # Seg Neutrophils % Seg Neuts % (Manual) Lymphocytes % (Manual) 13.0 L Monocytes % (Manual) Eosinophils % (Manual) Basophils % (Manual) Nucleated RBC % 1.0 H Seg Neutrophils # Seg Neutrophils # Man 12.9 H Lymphocytes # (Manual) Monocytes # (Manual) 1.4 H Eosinophils # (Manual) Basophils # (Manual) 0.2 H PT INR Fibrinogen dRVVT Confirm Interp Factor V Activity POC ABG pH POC ABG pCO2 POC ABG pO2 ABG pO2 ABG HCO3 ABG Base Excess ABG Hemoglobin Oxyhemoglobin Sodium Potassium Chloride 97.8 L Carbon Dioxide BUN 84 H Creatinine 1.6 H Glucose 133 H POC Glucose 134 H Lactic Acid Calcium Phosphorus Magnesium Direct Bilirubin AST ALT Alkaline Phosphatase Lactate Dehydrogenase Troponin T C-Reactive Protein Total Protein Albumin Prealbumin Triglycerides Cholesterol LDL Cholesterol Direct HDL Cholesterol Urine pH Urine WBC (Auto) Urine Creatinine Urine Total Protein Fluid Total Protein Vancomycin Trough Rheumatoid Factor Complement C4 Miscellaneous Test Crossmatch 12/19/16 12/19/16 12/19/16 09:36 11:12 18:29 WBC RBC Hgb Hct MCV MCH MCHC RDW Plt Count Lymph % (Auto) [place] % (Auto) Lymph # Trigg # Baso # Seg Neutrophils % Seg Neuts % (Manual) Lymphocytes % (Manual) Monocytes % (Manual) Eosinophils % (Manual) Basophils % (Manual) Nucleated RBC % Seg Neutrophils # Seg Neutrophils # Man Lymphocytes # (Manual) Monocytes # (Manual) Eosinophils # (Manual) Basophils # (Manual) PT INR Fibrinogen dRVVT Confirm Interp Factor V Activity POC ABG pH 7.503 H POC ABG pCO2 30.1 L POC ABG pO2 ABG pO2 ABG HCO3 ABG Base Excess ABG Hemoglobin Oxyhemoglobin Sodium Potassium Chloride Carbon Dioxide BUN Creatinine Glucose POC Glucose 138 H 156 H Lactic Acid Calcium Phosphorus Magnesium Direct Bilirubin AST ALT Alkaline Phosphatase Lactate Dehydrogenase Troponin T C-Reactive Protein Total Protein Albumin Prealbumin Triglycerides Cholesterol LDL Cholesterol Direct HDL Cholesterol Urine pH Urine WBC (Auto) Urine Creatinine Urine Total Protein Fluid Total Protein Vancomycin Trough Rheumatoid Factor Complement C4 Miscellaneous Test Crossmatch 12/20/16 12/20/16 12/20/16 00:03 06:17 07:07 WBC RBC Hgb Hct MCV MCH MCHC RDW Plt Count Lymph % (Auto) [place] % (Auto) Lymph # Trigg # Baso # Seg Neutrophils % Seg Neuts % (Manual) Lymphocytes % (Manual) Monocytes % (Manual) Eosinophils % (Manual) Basophils % (Manual) Nucleated RBC % Seg Neutrophils # Seg Neutrophils # Man Lymphocytes # (Manual) Monocytes # (Manual) Eosinophils # (Manual) Basophils # (Manual) PT INR Fibrinogen dRVVT Confirm Interp Factor V Activity POC ABG pH POC ABG pCO2 POC ABG pO2 ABG pO2 ABG HCO3 ABG Base Excess ABG Hemoglobin Oxyhemoglobin Sodium Potassium Chloride 97.1 L Carbon Dioxide 20 L BUN 97 H Creatinine 1.8 H Glucose 153 H POC Glucose 152 H 175 H Lactic Acid Calcium Phosphorus Magnesium Direct Bilirubin AST ALT Alkaline Phosphatase Lactate Dehydrogenase Troponin T C-Reactive Protein Total Protein Albumin Prealbumin Triglycerides Cholesterol LDL Cholesterol Direct HDL Cholesterol Urine pH Urine WBC (Auto) Urine Creatinine Urine Total Protein Fluid Total Protein Vancomycin Trough Rheumatoid Factor Complement C4 Miscellaneous Test Crossmatch 12/20/16 12:00 WBC RBC Hgb Hct MCV MCH MCHC RDW Plt Count Lymph % (Auto) [place] % (Auto) Lymph # Trigg # Baso # Seg Neutrophils % Seg Neuts % (Manual) Lymphocytes % (Manual) Monocytes % (Manual) Eosinophils % (Manual) Basophils % (Manual) Nucleated RBC % Seg Neutrophils # Seg Neutrophils # Man Lymphocytes # (Manual) Monocytes # (Manual) Eosinophils # (Manual) Basophils # (Manual) PT INR Fibrinogen dRVVT Confirm Interp Factor V Activity POC ABG pH POC ABG pCO2 POC ABG pO2 ABG pO2 ABG HCO3 ABG Base Excess ABG Hemoglobin Oxyhemoglobin Sodium Potassium Chloride Carbon Dioxide BUN Creatinine Glucose POC Glucose 141 H Lactic Acid Calcium Phosphorus Magnesium Direct Bilirubin AST ALT Alkaline Phosphatase Lactate Dehydrogenase Troponin T C-Reactive Protein Total Protein Albumin Prealbumin Triglycerides Cholesterol LDL Cholesterol Direct HDL Cholesterol Urine pH Urine WBC (Auto) Urine Creatinine Urine Total Protein Fluid Total Protein Vancomycin Trough Rheumatoid Factor Complement C4 Miscellaneous Test Crossmatch Allied health notes reviewed: RT
[2016-12-20] MEDS: TRANSDERM-SCOP TD SCH (17:16)
--- NOTE | 2016-12-20 17:49 | Progress Note ---
Assessment and Plan Assessment and plan: Patient is 46-year-old woman with a history of hypertension, diabetes mellitus, asthma, hyperlipidemia, chronic kidney disease and anxiety, who was brought in by family because she couldn't get her words out, her face was also twisted, she was admitted for acute CVA and accelerated hypertension, she had a hx of poor adherence with her medications, and uncontrolled htn. Patient's SBP on admission was noted be greater than 260. TPA was started but this it was discontinued after 5 minutes because her blood pressure became uncontrolled. The TPA was not initiated again because the patient was outside the TPA window. Patient has had a prolonged hospital stay complicated with recurrent severe sepsis. Patient with most recent event also status post cardiac arrest on and received CPR. -Severe Sepsis with septic shock, recurrent. * Patient with multiple episodes of sepsis. Initial episode due to presumed aspiration pneumonia and septic episode on 09/23 from candidemia then a third episode from peritonitis from gastric perforation from dislodged PEG +/-UTI. Patient was also noted to have had Candidemia with Blood cultures positive for Silvia albicans 09/23, 09/25 but negative on 09/30. Antibiotic discontinued on per ID. patient is s/p R thoracentesis on 11/14, 240cc of serous fluid removed , cx of fluid was negative. Also, Stool negative for C. difficile * Remains afebrile. -Surgical wound infection/gram-negative sepsis/candidemia/peritonitis/fungemia. * Continue wound care to ostomy sites. * Surgery signed off citing "The pt is in a persistent vegatative state and overall prognosis is poor. The drainage does not appear to be enteric in nature and is likely related to prolonged spillage of gastric content prior to repair. No plan for any further surgical tx at this time. Continue supportive care. Will sign off. Would not recommend replacment of G tube given drainage. Continue TPN." * Drainage continues to present over the two stoma bags. -Acute hypoxic respiratory failure, status post tracheostomy on ventilator >96 hrs * Patient Remains on mechanical ventilator. Patient failed T-piece trials. Tracheostomy tube leak. Pulmonary following -Acute massive CVA with mass effect; continue antiplatelets and statins * CT showed continued evolution of left MCA infarct with slight mass effect and edema, and there is no hemorrhage -PRINCE showed hyperdynamic ventricle with ef of 75%, neither clot nor septal defect seen -MRA Brain shows near complete occlusion of M2 and M3 of the left MCA * carotid doppler negative -Echo shows preserved systolic function but does show some left ventricular diastolic dysfunction * continue asa and statin Oliguric acute kidney injury secondary to ATN on CKD - baseline SCr 1.7mg/dL * Continue HD, Nephrology following -Dislodged PEG tube: Status post repair of gastric perforation which wedge gastrectomy -Paroxysmal atrial fibrillation with rapid ventricular rate, failed cardioversion * Continue current medications, Not a candidate for anticoagulation secondary to anemia, thrombocytopenia and massive CVA -Anemia; probably secondary to GI bleeding * Patient received multiple units of PRBC in the past, hemoglobin currently stable -Toxic metabolic encephalopathy With possible persistent vegetative state; supportive care * Family aware, but the state they are still hopeful for meaningful recovery -Diabetes mellitus type 2, Insulin/SSI -Severe protein caloric malnutrition, cont TPN -s/p Thrombocytopenia. Now resolved -DVT prophylaxis, SCDs, no pharmacological agent given anemia , thrombocytopenia , massive stroke -Full code status, very poor prognosis now on TPN 12/18/16: yesterday pt became hypotensive after dialysis and Vasopressin was started by Dr. Lara. She was given iv hydralazine overnight. She is still on Vasopressin, now back in AFib/aflutter with RVR. i d/w Dr. Rollins who recommends iv amiodarone drip without bolus. I also spoke with [facility], Dr. De Leon. per Dr. Rollins: Paroxysmal Afib s/p failed cardioversion on 09/25 on IV lopressor for suppression considered not a candidate for anticoagulation due to severe anemia requiring blood transfusion 12/19/16: still on vasopressin, convert back to sinus, not on Amiodarone. Still on TPN, reorder restraints 12/20/16. * No meaningfull change in mental status. No family at bedside, will review all data, considering my first time returning after a few days. Patient remains on mechanical ventilatory support and daily SBTs as tolerated. weaned off Pressors. Discussed with nursing at bedside. Restriants remain in place for safety. The high probability of a clinically significant, sudden or life threatening deterioration of the [pulmonary, neurology, cardiac, hematolgy, nephrology] system(s) required my full and direct attention, intervention and personal management. The aggregate critical care time was [35] minutes. This time is in addition to time spent performing reported procedures but includes the following : [x] Data Review and interpretation [x] Patient assessment and monitoring of vital signs [x] Documentation [x] Medication orders and management History Interval history: patient seen and examined, remains unresponsive on the ventilator. Hospitalist Physical - Physical exam Narrative exam: GEN: Ill appearing, trach, staring into space, not tracking either NECK: SUPPLE, trach in place, ngt in place CVS: regular currently NORMAL S1S2 LUNGS/CHEST: NORMAL CHEST EXPANSION B, GOOD AIR ENTRY B ABD: SOFT, NTND, 3 ostomy bags in 3 different locations, GBS, NO REBOUND OR GUARDING EXT/SKIN: NO SIGNIFICANT EDEMA OR RASH MSK: +spontaneous movement NEURO: on a ventilator and unresponsive despite being off sedation PSY: Comatose, - Constitutional Vitals: Temp Pulse Resp BP Pulse Ox 97.3 F L 109 H 26 H 86/59 97 12/20/16 16:27 12/20/16 16:54 12/20/16 16:27 12/20/16 16:27 12/20/16 16:54 General appearance: Present: no acute distress, well-nourished, obese Results - Labs CBC & Chem 7: 12/19/16 05:02 12/21/16 05:00 Labs: Laboratory Last Values WBC 20.1 K/mm3 (4.5-11.0) H 12/19/16 05:02 RBC 2.73 M/mm3 (3.65-5.03) L 12/19/16 05:02 Hgb 7.6 gm/dl (10.1-14.3) L 12/19/16 05:02 Hct 23.6 % (30.3-42.9) L 12/19/16 05:02 MCV 86 fl (79-97) 12/19/16 05:02 MCH 28 pg (28-32) 12/19/16 05:02 MCHC 32 % (30-34) 12/19/16 05:02 RDW 17.6 % (13.2-15.2) H 12/19/16 05:02 Plt Count 354 K/mm3 (140-440) 12/19/16 05:02 Lymph % (Auto) Finisher Wallboard [employer] Plasterboard 12/19/16 05:02 Carbon % (Auto) Finisher Wallboard [employer] Plasterboard 12/19/16 05:02 Eos % (Auto) Finisher [employer]asterboard 12/19/16 05:02 Baso % (Auto) Finisher [employer]asterboard 12/19/16 05:02 Lymph # Finisher [employer]aster[employer] 12/19/16 05:02 Carbon # Finisher Wallboard [employer] Plasterboard 12/19/16 05:02 Eos # Finisher Wallboard [employer] Plasterboard 12/19/16 05:02 Baso # Finisher Wallboard And Plasterboard 12/19/16 05:02 Add Manual Diff Complete 12/19/16 05:02 Total Counted 100 12/19/16 05:02 Seg Neutrophils % Finisher Wallboard [employer] Plasterboard 12/19/16 05:02 Seg Neuts % (Manual) 64.0 % (40.0-70.0) 12/19/16 05:02 Band Neutrophils % 15.0 % 12/19/16 05:02 Lymphocytes % (Manual) 13.0 % (13.4-35.0) L 12/19/16 05:02 Reactive Lymphs % (Man) 0 % 12/19/16 05:02 Monocytes % (Manual) 7.0 % (0.0-7.3) 12/19/16 05:02 Eosinophils % (Manual) 0 % (0.0-4.3) 12/19/16 05:02 Basophils % (Manual) 1.0 % (0.0-1.8) 12/19/16 05:02 Metamyelocytes % 0 % 12/19/16 05:02 Myelocytes % 0 % 12/19/16 05:02 Promyelocytes % 0 % 12/19/16 05:02 Blast Cells % 0 % 12/19/16 05:02 Nucleated RBC % 1.0 % (0.0-0.9) H 12/19/16 05:02 Seg Neutrophils # Finisher Wallboard [employer] Plasterboard 12/19/16 05:02 Seg Neutrophils # Man 12.9 K/mm3 (1.8-7.7) H 12/19/16 05:02 Band Neutrophils # 3.0 K/mm3 12/19/16 05:02 Lymphocytes # (Manual) 2.6 K/mm3 (1.2-5.4) 12/19/16 05:02 Abs React Lymphs (Man) 0.0 K/mm3 12/19/16 05:02 Monocytes # (Manual) 1.4 K/mm3 (0.0-0.8) H 12/19/16 05:02 Eosinophils # (Manual) 0.0 K/mm3 (0.0-0.4) 12/19/16 05:02 Basophils # (Manual) 0.2 K/mm3 (0.0-0.1) H 12/19/16 05:02 Metamyelocytes # 0.0 K/mm3 12/19/16 05:02 Myelocytes # 0.0 K/mm3 12/19/16 05:02 Promyelocytes # 0.0 K/mm3 12/19/16 05:02 Blast Cells # 0.0 K/mm3 12/19/16 05:02 Pathologist Review 09/13/16 04:00 WBC Morphology Not Reportable 12/19/16 05:02 Hypersegmented Neuts Not Reportable 12/19/16 05:02 Hyposegmented Neuts Not Reportable 12/19/16 05:02 Hypogranular Neuts Not Reportable 12/19/16 05:02 Smudge Cells Not Reportable 12/19/16 05:02 Toxic Granulation Not Reportable 12/19/16 05:02 Toxic Vacuolation Not Reportable 12/19/16 05:02 Dohle Bodies Not Reportable 12/19/16 05:02 Pelger-Huet Anomaly Not Reportable 12/19/16 05:02 Jasmina Rods Not Reportable 12/19/16 05:02 Platelet Estimate Consistent w auto 12/19/16 05:02 Clumped Platelets Not Reportable 12/19/16 05:02 Plt Clumps, EDTA Not Reportable 12/19/16 05:02 Large Platelets Not Reportable 12/19/16 05:02 Giant Platelets Not Reportable 12/19/16 05:02 Platelet Satelliting Not Reportable 12/19/16 05:02 Plt Morphology Comment Not Reportable 12/19/16 05:02 RBC Morphology Not Reportable 12/19/16 05:02 Dimorphic RBCs Not Reportable 12/19/16 05:02 Polychromasia Not Reportable 12/19/16 05:02 Hypochromasia Not Reportable 12/19/16 05:02 Poikilocytosis Not Reportable 12/19/16 05:02 Anisocytosis Not Reportable 12/19/16 05:02 Microcytosis Not Reportable 12/19/16 05:02 Macrocytosis Not Reportable 12/19/16 05:02 Spherocytes Not Reportable 12/19/16 05:02 Pappenheimer Bodies Not Reportable 12/19/16 05:02 Sickle Cells Not Reportable 12/19/16 05:02 Target Cells Few 12/19/16 05:02 Tear Drop Cells Not Reportable 12/19/16 05:02 Ovalocytes Not Reportable 12/19/16 05:02 Stomatocytes Rare 12/03/16 04:00 Helmet Cells Not Reportable 12/19/16 05:02 Monet-Rigby Bodies Not Reportable 12/19/16 05:02 [place] Rings Not Reportable 12/19/16 05:02 Chuck Cells Not Reportable 12/19/16 05:02 Bite Cells Not Reportable 12/19/16 05:02 Crenated Cell Not Reportable 12/19/16 05:02 Elliptocytes Not Reportable 12/19/16 05:02 Acanthocytes (Spur) Not Reportable 12/19/16 05:02 Rouleaux Not Reportable 12/19/16 05:02 Hemoglobin C Crystals Not Reportable 12/19/16 05:02 Schistocytes Not Reportable 12/19/16 05:02 Malaria parasites Not Reportable 12/19/16 05:02 ESR > 140.0 mm/Hr (0-20) 09/08/16 11:48 Jun Bodies Not Reportable 12/19/16 05:02 Hem Pathologist Commnt No 12/19/16 05:02 PT 16.8 Sec. (12.2-14.9) H 11/17/16 03:20 INR 1.37 (0.87-1.13) H 11/17/16 03:20 APTT 33.0 Sec. (24.2-36.6) 10/09/16 03:45 Thrombin Time 16.8 Sec. (15.1-19.6) 09/03/16 00:10 Fibrinogen 750 mg/dl (211-480) H 09/08/16 11:48 Lupus Anticoagulant see below 09/12/16 09:59 LA PTT Baseline See scanned report 09/12/16 09:59 dRVVT Confirm Interp Positive (Negative) H 09/12/16 09:59 dRVVT Screen 50:50 See scanned report 09/12/16 09:59 dRVVT Mix Interpret See scanned report 09/12/16 09:59 Protein C Antigen 122 % (70-140) 09/08/16 15:35 Free Protein S 97 % normal (50-147) 09/08/16 15:35 Total Protein S 109 % (70-140) 09/08/16 15:35 Antithrombin III Ag 100 % (80-120) 09/08/16 15:35 Heparin Anti-Xa, Unfract Negative (Negative) 09/29/16 13:35 Factor V Activity 182 % (65-150) H 09/08/16 15:35 POC ABG pH 7.503 (7.35-7.45) H 12/19/16 09:36 ABG pH 7.450 pH Units (7.350-7.450) 12/05/16 Unknown POC ABG pCO2 30.1 (35-45) L 12/19/16 09:36 ABG pCO2 29.6 mm Hg 12/05/16 Unknown POC ABG pO2 85 (80-105) 12/19/16 09:36 ABG pO2 75.2 mm Hg (80.0-90.0) L 12/05/16 Unknown POC ABG HCO3 23.6 12/19/16 09:36 ABG HCO3 20.1 mmol/L (20.0-26.0) 12/05/16 Unknown POC ABG Total CO2 25 12/19/16 09:36 POC ABG O2 Sat 97 12/19/16 09:36 ABG O2 Saturation 96.8 % (95.0-99.0) 12/05/16 Unknown ABG O2 Content 9.9 (0.0-44) 12/05/16 Unknown POC ABG Base Excess 1 12/19/16 09:36 ABG Base Excess -3.4 mmol/L (-2.0-3.0) L 12/05/16 Unknown ABG Hemoglobin 7.4 gm/dl (12.0-16.0) L 12/05/16 Unknown ABG Carboxyhemoglobin 1.8 % (0.0-5.0) 12/05/16 Unknown ABG Methemoglobin 0.6 % (0.0-1.5) 12/05/16 Unknown Oxyhemoglobin 94.5 % (95.0-99.0) L 12/05/16 Unknown FiO2 28 % 12/19/16 09:36 Sodium 141 mmol/L (137-145) 12/20/16 07:07 Potassium 3.9 mmol/L (3.6-5.0) 12/20/16 07:07 Chloride 97.1 mmol/L (98-107) L 12/20/16 07:07 Carbon Dioxide 20 mmol/L (22-30) L 12/20/16 07:07 Anion Gap 28 mmol/L 12/20/16 07:07 BUN 97 mg/dL (7-17) H 12/20/16 07:07 Creatinine 1.8 mg/dL (0.7-1.2) H 12/20/16 07:07 Estimated GFR 37 ml/min 12/20/16 07:07 BUN/Creatinine Ratio 54 % 12/20/16 07:07 Glucose 153 mg/dL (65-100) H 12/20/16 07:07 POC Glucose 141 (70-105) H 12/20/16 12:00 Osmolality 351 Mosm/kg 09/16/16 11:47 Lactic Acid 4.50 mmol/L (0.7-2.0) H* 09/28/16 07:25 Calcium 9.3 mg/dL (8.4-10.2) 12/20/16 07:07 Phosphorus 3.70 mg/dL (2.5-4.5) D 12/20/16 07:07 Magnesium 1.90 mg/dL (1.7-2.3) 12/20/16 07:07 Total Bilirubin 0.90 mg/dL (0.1-1.2) 12/18/16 05:00 Direct Bilirubin 0.3 mg/dL (0-0.2) H 10/10/16 05:00 Indirect Bilirubin 0.1 mg/dL 10/10/16 05:00 AST 34 units/L (5-40) 12/18/16 05:00 ALT 42 units/L (7-56) 12/18/16 05:00 Alkaline Phosphatase 257 units/L (35-129) H 12/18/16 05:00 Ammonia 27.0 umol/L (25-60) 09/07/16 08:37 Lactate Dehydrogenase 196 units/L (91-180) H 11/11/16 06:59 Total Creatine Kinase 121 units/L (30-135) 09/29/16 20:12 CK-MB (CK-2) < 1.0 ng/mL (0.0-4.0) 09/29/16 20:12 CK-MB (CK-2) Rel Index 0.8 (0-4) 09/29/16 20:12 Troponin T 0.204 ng/mL (0.00-0.029) H* 09/29/16 20:12 C-Reactive Protein 19.30 mg/dL (0.00-1.30) H 12/05/16 05:00 Total Protein 5.9 g/dL (6.3-8.2) L 12/18/16 05:00 Albumin 1.8 g/dL (3.9-5) L 12/18/16 05:00 Albumin/Globulin Ratio 0.4 % 12/18/16 05:00 Prealbumin 0.180 g/L (0.200-0.400) L 11/06/16 06:25 Triglycerides 137 mg/dL (2-149) 09/29/16 20:12 Cholesterol 31 mg/dL (50-199) L 09/29/16 20:12 LDL Cholesterol Direct 4 mg/dL (50-130) L 09/29/16 20:12 HDL Cholesterol 3 mg/dL (40-59) L 09/29/16 20:12 Cholesterol/HDL Ratio 10.33 % 09/29/16 20:12 Angiotensin Convert Enz See scanned report 09/08/16 11:48 Renin 0.99 ng/mL/h (0.25-5.82) 10/07/16 10:56 Aldosterone <1 ng/dL () 10/07/16 10:56 Aldosterone/Renin Dir see below 10/07/16 10:56 Serotonin Release Assay See scanned report 09/29/16 13:35 TSH 1.010 mlU/mL (0.270-4.200) 09/07/16 08:37 HCG, Qual Negative (Negative) 09/03/16 00:10 Urine Color Yellow (Yellow) 11/05/16 13:09 Urine Turbidity Clear (Clear) 11/05/16 13:09 Urine pH 9.0 (5.0-7.0) H 11/05/16 13:09 Ur Specific [place] 1.011 (1.003-1.030) 11/05/16 13:09 Urine Protein 100 mg/dl mg/dL (Negative) 11/05/16 13:09 Urine Glucose (UA) Neg mg/dL (Negative) 11/05/16 13:09 Urine Ketones Neg mg/dL (Negative) 11/05/16 13:09 Urine Blood Neg (Negative) 11/05/16 13:09 Urine Nitrite Neg (Negative) 11/05/16 13:09 Urine Bilirubin Neg (Negative) 11/05/16 13:09 Urine Urobilinogen < 2.0 mg/dL (<2.0) 11/05/16 13:09 Ur Leukocyte Esterase Neg (Negative) 11/05/16 13:09 Urine WBC (Auto) 4.0 /HPF (0.0-6.0) 11/05/16 13:09 Urine RBC (Auto) 1.0 /HPF (0.0-6.0) 11/05/16 13:09 U Epithel Cells (Auto) 1.0 /HPF (0-13.0) 10/07/16 18:30 Urine Bacteria (Auto) 4+ /HPF (Negative) 11/05/16 13:09 Urine WBC Clumps 2+ /HPF 09/07/16 02:47 Hyaline Casts 4 /LPF 09/07/16 02:47 Urine Mucus Few /HPF 10/07/16 18:30 Urine Yeast (Budding) 3+ /HPF 10/07/16 18:30 Urine Eosinophils None seen (None Seen) 09/07/16 16:00 Urine Total Volume 950 11/12/16 10:18 Urine Creatinine 19.7 mg/dL (0.1-20.0) 11/12/16 10:18 Height (in) 65.0 inches 11/12/16 10:18 Weight (lb) 181.0 lbs 11/12/16 10:18 Creatinine Clearance 5 11/12/16 10:18 Urine Sodium 36 mEq/L 09/16/16 19:19 Urine Total Protein 16 mg/dL (5-11.8) H 09/16/16 19:19 Fluid Total Protein < 3.0 (15.0-45.0) L 11/10/16 14:20 Fluid LDH 123 11/10/16 14:20 Vancomycin Trough 2.3 ug/mL (5.0-20.0) L 09/21/16 13:00 Random Vancomycin 16.5 ug/mL (0-40.0) 11/28/16 09:45 Urine Opiates Screen Presumptive negative 09/03/16 15:11 Urine Methadone Screen Presumptive positive 09/03/16 15:11 Ur Barbiturates Screen Presumptive positive 09/03/16 15:11 Ur Phencyclidine Scrn Presumptive negative 09/03/16 15:11 Ur Amphetamines Screen Presumptive negative 09/03/16 15:11 U Benzodiazepines Scrn Presumptive negative 09/03/16 15:11 Urine Cocaine Screen Presumptive negative 09/03/16 15:11 U Marijuana (THC) Screen Presumptive positive 09/03/16 15:11 Drugs of Abuse Note Disclamer 09/03/16 15:11 Rheumatoid Factor 24 IU/ml (0-13) H 09/08/16 11:48 SAHIL Screen Negative (Negative) 09/07/16 09:20 Proteinase 3 (PR3) Ab <1.0 AI (<1.0) 09/07/16 09:20 Myeloperoxidase Ab <1.0 AI (<1.0) 09/07/16 09:20 Sjogren's Antibody <1.0 AI (<1.0) 09/08/16 15:35 Scl-70 Scleroderma Ab <1.0 AI (<1.0) 09/08/16 15:35 Centromere B Antibody <1.0 AI (<1.0) 09/08/16 12:02 Heparin-induced Plt Ab Negative (Negative) 09/29/16 13:35 UF Heparin High Dose 11 % Release 09/29/16 13:35 SUDHIR UFH Low Dose 0.1 6 % Release 09/29/16 13:35 SUDHIR UFH Low Dose 0.5 8 % Release 09/29/16 13:35 Cardiolipid IgG Ab <14 GPL (<=14) 09/12/16 09:59 Cardiolipid IgA Ab <11 APL (<=11) 09/12/16 09:59 Cardiolipid IgM Ab <12 MPL (<=12) 09/12/16 09:59 Complement C3 148 mg/dL (90-180) 09/07/16 09:20 Complement C4 58 mg/dL (16-47) H 09/07/16 09:20 RPR Nonreactive (Nonreactive) 09/08/16 11:48 Hepatitis A IgM Ab Non-reactive (NonReactive) 09/24/16 14:40 Hep Bs Antigen Non-reactive (Negative) 09/24/16 14:40 Hep B Core IgM Ab Non-reactive (NonReactive) 09/24/16 14:40 Hepatitis C Antibody Non-reactive (NonReactive) 09/24/16 14:40 HIV 1&2 Antibody Rapid Non react (Non React) 09/08/16 11:48 HIV P24 Antigen Non react (Non React) 09/08/16 11:48 Miscellaneous Test Flexitest 1 H 11/05/16 13:25 Blood Type A POSITIVE 12/16/16 16:25 Antibody Screen Negative 12/16/16 16:25 DELORIS Antibody Screen Negative 11/24/16 11:20 Crossmatch See Detail 12/16/16 16:25
[2016-12-20] MEDS ORDERED: TPN ADULT IV SCH (20:00)
[2016-12-21] MEDS: DUONEB *Not for PRN Use IH SCH ×4 (02:46→20:11)
[2016-12-21] MEDS: LOPRESSOR PO SCH ×5 (06:02→19:48)
[2016-12-21] MEDS: HumuLIN R SUB-Q SCH ×5 (06:02→19:49)
[2016-12-21] MEDS: REGLAN IV SCH ×2 (06:17→19:50)
[2016-12-21 07:26] LABS: Blood Urea Nitrogen TNR mg/dL (7-17)
[2016-12-21 07:27] LABS: BUN/Creatinine Ratio TNR; Calcium TNR mg/dL (8.4-10.2); Hemolysis Index TNR
--- NOTE | 2016-12-21 08:28 | Progress Note ---
Assessment and Plan Patient is 46-year-old woman with a history of hypertension, diabetes mellitus, asthma, hyperlipidemia, chronic kidney disease and anxiety, who was brought in by family because she couldn't get her words out, her face was also twisted, she was admitted for acute CVA and accelerated hypertension, she had a hx of poor adherence with her medications, and uncontrolled htn. Patient's SBP on admission was noted be greater than 260. TPA was started but this it was discontinued after 5 minutes because her blood pressure became uncontrolled. The TPA was not initiated again because the patient was outside the TPA window. Patient has had a prolonged hospital stay complicated with recurrent severe sepsis. Patient with most recent event also status post cardiac arrest on , with CPR and ROSC. Acute on chronic Hypoxemic Respiratory Failure ( not tolerating spontaneous breathing trials) Sepsis -recurrent s/p tracheostomy Hypertension Atrial Fibrillation with RVR Acute encephalopathy s/p CVA Oropharyngeal dysphagia Enterococcal bacteremia Sacral Decubitus Ulcer- unstageable Anemia Obesity JUANITA now on hemodialysis Enteric Fistula - VAP bundle addressed -CXR prn - continue NGT to LIS - continue wound care per WCT - Vasopressor if MAP falls < 65mmHg - keep on with daily PSV trials and / or T-piece as tolerated - continue TPN administration (continue TPN; NPO except for meds) - continue airway clearance nd secretion management - continue to wean FiO2 for sats > 94% - continue antihypertensives and monitor hemodynamics closely - continue HD/UF per nephrology - continue to follow electrolytes and correct as necessary - continue GI & VTE prophylaxis -per Cardiology--failed cardioversion, not a candidate fro full anticoagulation. No further recommendations for management of atrial fibrillation. Rate control as tolerated by hemodynamics For further interventions per surgical service, as it pertains to the replacement of the PEG tube. 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 - Patient Problems (1) Acute respiratory failure with hypoxia Current Visit: Yes Status: Acute (2) Acute blood loss anemia Current Visit: Yes Status: Resolved (3) Acute CVA (cerebrovascular accident) Current Visit: Yes Status: Acute (4) Chronic renal insufficiency Current Visit: Yes Status: Acute Qualifiers: Chronic kidney disease stage: C (5) Uncontrolled hypertension Current Visit: Yes Status: Acute (6) Leukocytosis (leucocytosis) Current Visit: Yes Status: Acute Qualifiers: Leukocytosis type: leukemoid reaction Qualified Code(s): D72.823 - Leukemoid reaction (7) Dislodged gastrostomy tube Current Visit: Yes Status: Acute (8) Fungemia Current Visit: Yes Status: Resolved (9) Cardiopulmonary arrest with successful resuscitation Current Visit: Yes Status: Acute Subjective Date of service: 12/21/16 Principal diagnosis: Acute resp failure on MVS; S/P Acute CVA; Acute Encephalopathy; JUANITA Interval history: Seen and examined. Vitals, labs, medications, chart reviewed. On mechanical ventilatory support, tolerated some ATP later yesterday. Rested on full mechanical support overnight. Sacral decubitus ulcer appears worse. No further episodes of vomiting. Discussed in interdisciplinary rounds Objective - Exam Narrative Exam: Patient is on mechanical ventilation Vital signs as documented. Head exam is unremarkable. No scleral icterus . Neck is without jugular venous distension,s/p tracheostomy to ventilator Lungs are clear to auscultation. Cardiac exam reveals regular rate and Rhythm. First and second heart sounds normal. No murmurs, rubs or gallops. Abdominal exam reveals abscess draining from the PEG site, and multiple fistulas around the stomach. Extremities are non edematous and both femoral and pedal pulses are normal. Sacral decubitus ulcer. 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 Vital Signs - 12hr 12/20/16 12/20/16 12/20/16 20:30 20:45 21:00 Temperature Pulse Rate 101 H 98 H 101 H Pulse Rate [ Throughout] Respiratory 28 H 28 H 25 H Rate Respiratory Rate [ Throughout] Blood Pressure 90/53 90/53 89/55 O2 Sat by Pulse 99 99 99 Oximetry O2 Sat by Pulse Oximetry [ Assessment] 12/20/16 12/20/16 12/20/16 21:15 21:30 21:45 Temperature Pulse Rate 99 H 103 H 106 H Pulse Rate [ Throughout] Respiratory 21 30 H 22 Rate Respiratory Rate [ Throughout] Blood Pressure 87/54 105/62 117/70 O2 Sat by Pulse 98 92 99 Oximetry O2 Sat by Pulse Oximetry [ Assessment] 12/20/16 12/20/16 12/20/16 22:00 22:14 22:15 Temperature Pulse Rate 108 H 106 H 107 H Pulse Rate [ Throughout] Respiratory 27 H 26 H Rate Respiratory Rate [ Throughout] Blood Pressure 110/60 110/60 107/66 O2 Sat by Pulse 88 92 Oximetry O2 Sat by Pulse Oximetry [ Assessment] 12/20/16 12/20/16 12/20/16 22:30 22:45 23:00 Temperature Pulse Rate 103 H 101 H 108 H Pulse Rate [ Throughout] Respiratory 24 24 27 H Rate Respiratory Rate [ Throughout] Blood Pressure 110/70 107/63 121/78 O2 Sat by Pulse 98 97 93 Oximetry O2 Sat by Pulse Oximetry [ Assessment] 12/20/16 12/20/16 12/20/16 23:15 23:30 23:45 Temperature Pulse Rate 101 H 96 H 95 H Pulse Rate [ Throughout] Respiratory 23 28 H 17 Rate Respiratory Rate [ Throughout] Blood Pressure 94/58 88/44 92/55 O2 Sat by Pulse 97 96 98 Oximetry O2 Sat by Pulse Oximetry [ Assessment] 12/20/16 12/20/16 12/21/16 23:54 23:57 00:00 Temperature 98.2 F Pulse Rate 95 H 97 H Pulse Rate [ Throughout] Respiratory 18 Rate Respiratory Rate [ Throughout] Blood Pressure 92/55 83/49 O2 Sat by Pulse 98 98 Oximetry O2 Sat by Pulse 98 Oximetry [ Assessment] 12/21/16 12/21/16 12/21/16 00:15 00:30 00:45 Temperature Pulse Rate 93 H 94 H 97 H Pulse Rate [ Throughout] Respiratory 22 19 21 Rate Respiratory Rate [ Throughout] Blood Pressure 85/48 91/57 104/70 O2 Sat by Pulse 95 99 98 Oximetry O2 Sat by Pulse Oximetry [ Assessment] 12/21/16 12/21/16 12/21/16 01:00 01:15 01:30 Temperature Pulse Rate 100 H 100 H 96 H Pulse Rate [ Throughout] Respiratory 21 20 20 Rate Respiratory Rate [ Throughout] Blood Pressure 101/66 100/67 98/60 O2 Sat by Pulse 98 98 98 Oximetry O2 Sat by Pulse Oximetry [ Assessment] 12/21/16 12/21/16 12/21/16 01:45 02:00 02:15 Temperature Pulse Rate 98 H 96 H 107 H Pulse Rate [ 105 H Throughout] Respiratory 23 16 25 H Rate Respiratory 22 Rate [ Throughout] Blood Pressure 95/65 90/55 105/69 O2 Sat by Pulse 98 98 99 Oximetry O2 Sat by Pulse Oximetry [ Assessment] 1112/21/16 12/21/16 02:30 02:45 03:00 Temperature Pulse Rate 107 H 105 H 105 H Pulse Rate [ Throughout] Respiratory 27 H 24 24 Rate Respiratory Rate [ Throughout] Blood Pressure 112/71 106/66 115/70 O2 Sat by Pulse 97 97 97 Oximetry O2 Sat by Pulse Oximetry [ Assessment] 12/21/16 12/21/16 12/21/16 03:15 03:30 03:45 Temperature Pulse Rate 102 H 107 H 107 H Pulse Rate [ Throughout] Respiratory 26 H 24 22 Rate Respiratory Rate [ Throughout] Blood Pressure 108/68 114/75 115/78 O2 Sat by Pulse 97 99 98 Oximetry O2 Sat by Pulse Oximetry [ Assessment] 12/21/16 12/21/16 12/21/16 04:00 04:15 04:31 Temperature 98.0 F Pulse Rate 98 H 111 H Pulse Rate [ Throughout] Respiratory 17 18 Rate Respiratory Rate [ Throughout] Blood Pressure 94/61 94/61 94/61 O2 Sat by Pulse 97 97 94 Oximetry O2 Sat by Pulse Oximetry [ Assessment] 12/21/16 12/21/16 12/21/16 04:45 05:01 05:15 Temperature Pulse Rate 111 H 102 H 101 H Pulse Rate [ Throughout] Respiratory 26 H 22 21 Rate Respiratory Rate [ Throughout] Blood Pressure 94/61 94/61 94/61 O2 Sat by Pulse 97 97 98 Oximetry O2 Sat by Pulse Oximetry [ Assessment] 12/21/16 12/21/16 12/21/16 05:31 05:45 05:49 Temperature Pulse Rate 102 H 102 H 100 H Pulse Rate [ Throughout] Respiratory 19 21 Rate Respiratory Rate [ Throughout] Blood Pressure 94/61 94/61 105/69 O2 Sat by Pulse 98 99 99 Oximetry O2 Sat by Pulse Oximetry [ Assessment] 12/21/16 12/21/16 12/21/16 06:00 06:02 06:15 Temperature Pulse Rate 100 H 105 H 101 H Pulse Rate [ Throughout] Respiratory 20 21 Rate Respiratory Rate [ Throughout] Blood Pressure 132/78 104/58 126/80 O2 Sat by Pulse 99 98 Oximetry O2 Sat by Pulse Oximetry [ Assessment] 12/21/16 12/21/16 12/21/16 06:30 06:45 07:00 Temperature Pulse Rate 100 H 92 H 96 H Pulse Rate [ Throughout] Respiratory 20 20 20 Rate Respiratory Rate [ Throughout] Blood Pressure 138/85 138/85 143/89 O2 Sat by Pulse 100 100 100 Oximetry O2 Sat by Pulse Oximetry [ Assessment] 12/21/16 12/21/16 12/21/16 07:15 07:30 07:45 Temperature Pulse Rate 92 H 92 H 89 Pulse Rate [ Throughout] Respiratory 23 25 H 22 Rate Respiratory Rate [ Throughout] Blood Pressure 130/77 120/71 102/62 O2 Sat by Pulse 100 100 96 Oximetry O2 Sat by Pulse Oximetry [ Assessment] Constitutional: no acute distress, other (eyes open; not tracking movements) Eyes: non-icteric, other (tracheostomy tube in midline of neck) ENT: oropharynx moist Neck: supple, no lymphadenopathy Effort: normal, mildly labored Ascultation: Bilateral: clear, diminished breath sounds (bases), rales, rhonchi (and referred upper airway sounds) Percussion: Left: dull (base), Bilateral: not dull Cardiovascular: regular rate and rhythm, irregular rhythm Gastrointestinal: normoactive bowel sounds, hypoactive bowel sounds, soft, non- tender, non-distended, other (RLQ stomas with colostomy bags) Integumentary: normal, other Extremities: no cyanosis, no edema (bilateral lower extremity edema), pulses normal, no ischemia or petechiae Neurologic: pupils equal and round, other (encephalopathic) Psychiatric: other (unable to assess) CBC and BMP: 12/30/16 04:20 01/02/17 06:00 ABG, PT/INR, D-dimer: ABG POC ABG pH 7.503 (7.35-7.45) H 12/19/16 09:36 ABG pH 7.450 pH Units (7.350-7.450) 12/05/16 Unknown POC ABG pCO2 30.1 (35-45) L 12/19/16 09:36 ABG pCO2 29.6 mm Hg 12/05/16 Unknown POC ABG pO2 85 (80-105) 12/19/16 09:36 ABG pO2 75.2 mm Hg (80.0-90.0) L 12/05/16 Unknown POC ABG HCO3 23.6 12/19/16 09:36 POC ABG Total CO2 25 12/19/16 09:36 POC ABG O2 Sat 97 12/19/16 09:36 ABG O2 Saturation 96.8 % (95.0-99.0) 12/05/16 Unknown PT/INR, D-dimer PT 16.8 Sec. (12.2-14.9) H 11/17/16 03:20 INR 1.37 (0.87-1.13) H 11/17/16 03:20 Abnormal lab findings: Abnormal Labs 09/03/16 09/03/16 09/03/16 12:12 15:07 16:20 WBC RBC Hgb Hct MCV MCH MCHC RDW Plt Count Lymph % (Auto) Coke % (Auto) Lymph # [place] # Baso # Seg Neutrophils % Seg Neuts % (Manual) Lymphocytes % (Manual) Monocytes % (Manual) Eosinophils % (Manual) Basophils % (Manual) Nucleated RBC % Seg Neutrophils # Seg Neutrophils # Man Lymphocytes # (Manual) Monocytes # (Manual) Eosinophils # (Manual) Basophils # (Manual) PT INR Fibrinogen dRVVT Confirm Interp Factor V Activity POC ABG pH 7.452 H POC ABG pCO2 POC ABG pO2 ABG pO2 ABG HCO3 ABG Base Excess ABG Hemoglobin Oxyhemoglobin Sodium Potassium Chloride Carbon Dioxide BUN Creatinine Glucose POC Glucose 178 H Lactic Acid Calcium Phosphorus 2.20 L Magnesium 1.60 L Direct Bilirubin AST ALT Alkaline Phosphatase Lactate Dehydrogenase Troponin T C-Reactive Protein Total Protein Albumin Prealbumin Triglycerides Cholesterol LDL Cholesterol Direct HDL Cholesterol Urine pH Urine WBC (Auto) Urine Creatinine Urine Total Protein Fluid Total Protein Vancomycin Trough Rheumatoid Factor Complement C4 Miscellaneous Test Crossmatch 09/03/16 09/03/16 09/03/16 17:57 17:58 23:50 WBC RBC Hgb Hct MCV MCH MCHC RDW Plt Count Lymph % (Auto) [place]ke % (Auto) Lymph # [place] # Baso # Seg Neutrophils % Seg Neuts % (Manual) Lymphocytes % (Manual) Monocytes % (Manual) Eosinophils % (Manual) Basophils % (Manual) Nucleated RBC % Seg Neutrophils # Seg Neutrophils # Man Lymphocytes # (Manual) Monocytes # (Manual) Eosinophils # (Manual) Basophils # (Manual) PT INR Fibrinogen dRVVT Confirm Interp Factor V Activity POC ABG pH POC ABG pCO2 POC ABG pO2 ABG pO2 ABG HCO3 ABG Base Excess ABG Hemoglobin Oxyhemoglobin Sodium Potassium Chloride Carbon Dioxide BUN Creatinine Glucose POC Glucose 162 H 145 H Lactic Acid Calcium Phosphorus 2.30 L Magnesium Direct Bilirubin AST ALT Alkaline Phosphatase Lactate Dehydrogenase Troponin T C-Reactive Protein Total Protein Albumin Prealbumin Triglycerides Cholesterol LDL Cholesterol Direct HDL Cholesterol Urine pH Urine WBC (Auto) Urine Creatinine Urine Total Protein Fluid Total Protein Vancomycin Trough Rheumatoid Factor Complement C4 Miscellaneous Test Crossmatch 09/04/16 09/04/16 09/04/16 03:31 03:31 05:42 WBC RBC Hgb 9.7 L D Hct MCV 72 L MCH 23 L MCHC RDW 17.5 H Plt Count Lymph % (Auto) 11.1 L [place] % (Auto) Lymph # [place] # Baso # Seg Neutrophils % 84.3 H Seg Neuts % (Manual) Lymphocytes % (Manual) Monocytes % (Manual) Eosinophils % (Manual) Basophils % (Manual) Nucleated RBC % Seg Neutrophils # 8.9 H Seg Neutrophils # Man Lymphocytes # (Manual) Monocytes # (Manual) Eosinophils # (Manual) Basophils # (Manual) PT INR Fibrinogen dRVVT Confirm Interp Factor V Activity POC ABG pH POC ABG pCO2 POC ABG pO2 ABG pO2 ABG HCO3 ABG Base Excess ABG Hemoglobin Oxyhemoglobin Sodium 135 L Potassium 2.9 L* Chloride 97.2 L Carbon Dioxide 19 L BUN Creatinine 1.7 H Glucose 170 H POC Glucose 152 H Lactic Acid Calcium Phosphorus Magnesium Direct Bilirubin AST ALT Alkaline Phosphatase Lactate Dehydrogenase Troponin T C-Reactive Protein Total Protein Albumin Prealbumin Triglycerides 160 H Cholesterol LDL Cholesterol Direct HDL Cholesterol 31 L Urine pH Urine WBC (Auto) Urine Creatinine Urine Total Protein Fluid Total Protein Vancomycin Trough Rheumatoid Factor Complement C4 Miscellaneous Test Crossmatch 09/04/16 09/04/16 09/04/16 11:34 17:46 23:29 WBC RBC Hgb Hct MCV MCH MCHC RDW Plt Count Lymph % (Auto) [place]ke % (Auto) Lymph # [place] # Baso # Seg Neutrophils % Seg Neuts % (Manual) Lymphocytes % (Manual) Monocytes % (Manual) Eosinophils % (Manual) Basophils % (Manual) Nucleated RBC % Seg Neutrophils # Seg Neutrophils # Man Lymphocytes # (Manual) Monocytes # (Manual) Eosinophils # (Manual) Basophils # (Manual) PT INR Fibrinogen dRVVT Confirm Interp Factor V Activity POC ABG pH POC ABG pCO2 POC ABG pO2 ABG pO2 ABG HCO3 ABG Base Excess ABG Hemoglobin Oxyhemoglobin Sodium Potassium Chloride Carbon Dioxide BUN Creatinine Glucose POC Glucose 165 H 210 H 139 H Lactic Acid Calcium Phosphorus Magnesium Direct Bilirubin AST ALT Alkaline Phosphatase Lactate Dehydrogenase Troponin T C-Reactive Protein Total Protein Albumin Prealbumin Triglycerides Cholesterol LDL Cholesterol Direct HDL Cholesterol Urine pH Urine WBC (Auto) Urine Creatinine Urine Total Protein Fluid Total Protein Vancomycin Trough Rheumatoid Factor Complement C4 Miscellaneous Test Crossmatch 09/05/16 09/05/16 09/05/16 04:05 04:05 05:38 WBC RBC Hgb Hct MCV 76 L D MCH 23 L MCHC RDW 17.8 H Plt Count Lymph % (Auto) [place]ke % (Auto) Lymph # [place] # Baso # Seg Neutrophils % Seg Neuts % (Manual) Lymphocytes % (Manual) Monocytes % (Manual) Eosinophils % (Manual) Basophils % (Manual) Nucleated RBC % Seg Neutrophils # Seg Neutrophils # Man Lymphocytes # (Manual) Monocytes # (Manual) Eosinophils # (Manual) Basophils # (Manual) PT INR Fibrinogen dRVVT Confirm Interp Factor V Activity POC ABG pH POC ABG pCO2 POC ABG pO2 ABG pO2 ABG HCO3 ABG Base Excess ABG Hemoglobin Oxyhemoglobin Sodium 134 L Potassium Chloride Carbon Dioxide 18 L BUN Creatinine 1.8 H Glucose 192 H POC Glucose 175 H Lactic Acid Calcium Phosphorus Magnesium Direct Bilirubin AST ALT Alkaline Phosphatase Lactate Dehydrogenase Troponin T C-Reactive Protein Total Protein Albumin Prealbumin Triglycerides Cholesterol LDL Cholesterol Direct HDL Cholesterol Urine pH Urine WBC (Auto) Urine Creatinine Urine Total Protein Fluid Total Protein Vancomycin Trough Rheumatoid Factor Complement C4 Miscellaneous Test Crossmatch 09/05/16 09/05/16 09/05/16 11:38 17:48 23:22 WBC RBC Hgb Hct MCV MCH MCHC RDW Plt Count Lymph % (Auto) [place] % (Auto) Lymph # [place] # Baso # Seg Neutrophils % Seg Neuts % (Manual) Lymphocytes % (Manual) Monocytes % (Manual) Eosinophils % (Manual) Basophils % (Manual) Nucleated RBC % Seg Neutrophils # Seg Neutrophils # Man Lymphocytes # (Manual) Monocytes # (Manual) Eosinophils # (Manual) Basophils # (Manual) PT INR Fibrinogen dRVVT Confirm Interp Factor V Activity POC ABG pH POC ABG pCO2 POC ABG pO2 ABG pO2 ABG HCO3 ABG Base Excess ABG Hemoglobin Oxyhemoglobin Sodium Potassium Chloride Carbon Dioxide BUN Creatinine Glucose POC Glucose 164 H 186 H 195 H Lactic Acid Calcium Phosphorus Magnesium Direct Bilirubin AST ALT Alkaline Phosphatase Lactate Dehydrogenase Troponin T C-Reactive Protein Total Protein Albumin Prealbumin Triglycerides Cholesterol LDL Cholesterol Direct HDL Cholesterol Urine pH Urine WBC (Auto) Urine Creatinine Urine Total Protein Fluid Total Protein Vancomycin Trough Rheumatoid Factor Complement C4 Miscellaneous Test Crossmatch 09/06/16 09/06/16 09/06/16 04:12 05:59 07:32 WBC RBC Hgb Hct MCV MCH MCHC RDW Plt Count Lymph % (Auto) [place] % (Auto) Lymph # [place] # Baso # Seg Neutrophils % Seg Neuts % (Manual) Lymphocytes % (Manual) Monocytes % (Manual) Eosinophils % (Manual) Basophils % (Manual) Nucleated RBC % Seg Neutrophils # Seg Neutrophils # Man Lymphocytes # (Manual) Monocytes # (Manual) Eosinophils # (Manual) Basophils # (Manual) PT INR Fibrinogen dRVVT Confirm Interp Factor V Activity POC ABG pH 7.514 H POC ABG pCO2 29.1 L POC ABG pO2 72 L ABG pO2 ABG HCO3 ABG Base Excess ABG Hemoglobin Oxyhemoglobin Sodium 133 L Potassium 3.4 L Chloride 94.9 L Carbon Dioxide 19 L BUN 30 H Creatinine 2.1 H Glucose 139 H POC Glucose 146 H Lactic Acid Calcium Phosphorus Magnesium Direct Bilirubin AST ALT Alkaline Phosphatase Lactate Dehydrogenase Troponin T C-Reactive Protein Total Protein Albumin Prealbumin Triglycerides Cholesterol LDL Cholesterol Direct HDL Cholesterol Urine pH Urine WBC (Auto) Urine Creatinine Urine Total Protein Fluid Total Protein Vancomycin Trough Rheumatoid Factor Complement C4 Miscellaneous Test Crossmatch 09/06/16 09/06/16 09/06/16 11:57 17:58 19:02 WBC RBC Hgb Hct MCV MCH MCHC RDW Plt Count Lymph % (Auto) [place] % (Auto) Lymph # [place] # Baso # Seg Neutrophils % Seg Neuts % (Manual) Lymphocytes % (Manual) Monocytes % (Manual) Eosinophils % (Manual) Basophils % (Manual) Nucleated RBC % Seg Neutrophils # Seg Neutrophils # Man Lymphocytes # (Manual) Monocytes # (Manual) Eosinophils # (Manual) Basophils # (Manual) PT INR Fibrinogen dRVVT Confirm Interp Factor V Activity POC ABG pH 7.465 H POC ABG pCO2 32.0 L POC ABG pO2 ABG pO2 ABG HCO3 ABG Base Excess ABG Hemoglobin Oxyhemoglobin Sodium Potassium Chloride Carbon Dioxide BUN Creatinine Glucose POC Glucose 165 H 160 H Lactic Acid Calcium Phosphorus Magnesium Direct Bilirubin AST ALT Alkaline Phosphatase Lactate Dehydrogenase Troponin T C-Reactive Protein Total Protein Albumin Prealbumin Triglycerides Cholesterol LDL Cholesterol Direct HDL Cholesterol Urine pH Urine WBC (Auto) Urine Creatinine Urine Total Protein Fluid Total Protein Vancomycin Trough Rheumatoid Factor Complement C4 Miscellaneous Test Crossmatch 09/06/16 09/07/16 09/07/16 23:45 02:47 02:47 WBC RBC Hgb Hct MCV MCH MCHC RDW Plt Count Lymph % (Auto) [place] % (Auto) Lymph # [place] # Baso # Seg Neutrophils % Seg Neuts % (Manual) Lymphocytes % (Manual) Monocytes % (Manual) Eosinophils % (Manual) Basophils % (Manual) Nucleated RBC % Seg Neutrophils # Seg Neutrophils # Man Lymphocytes # (Manual) Monocytes # (Manual) Eosinophils # (Manual) Basophils # (Manual) PT INR Fibrinogen dRVVT Confirm Interp Factor V Activity POC ABG pH POC ABG pCO2 POC ABG pO2 ABG pO2 ABG HCO3 ABG Base Excess ABG Hemoglobin Oxyhemoglobin Sodium Potassium Chloride Carbon Dioxide BUN Creatinine Glucose POC Glucose 204 H Lactic Acid Calcium Phosphorus Magnesium Direct Bilirubin AST ALT Alkaline Phosphatase Lactate Dehydrogenase Troponin T C-Reactive Protein Total Protein Albumin Prealbumin Triglycerides Cholesterol LDL Cholesterol Direct HDL Cholesterol Urine pH Urine WBC (Auto) 68.0 H Urine Creatinine 106.1 H Urine Total Protein Fluid Total Protein Vancomycin Trough Rheumatoid Factor Complement C4 Miscellaneous Test Crossmatch 09/07/16 09/07/16 09/07/16 04:50 06:19 06:39 WBC RBC Hgb Hct MCV MCH MCHC RDW Plt Count Lymph % (Auto) [place] % (Auto) Lymph # [place] # Baso # Seg Neutrophils % Seg Neuts % (Manual) Lymphocytes % (Manual) Monocytes % (Manual) Eosinophils % (Manual) Basophils % (Manual) Nucleated RBC % Seg Neutrophils # Seg Neutrophils # Man Lymphocytes # (Manual) Monocytes # (Manual) Eosinophils # (Manual) Basophils # (Manual) PT INR Fibrinogen dRVVT Confirm Interp Factor V Activity POC ABG pH 7.457 H POC ABG pCO2 32.1 L POC ABG pO2 76 L ABG pO2 ABG HCO3 ABG Base Excess ABG Hemoglobin Oxyhemoglobin Sodium 132 L Potassium Chloride 94.7 L Carbon Dioxide BUN 53 H Creatinine 2.9 H Glucose 151 H POC Glucose 149 H Lactic Acid Calcium Phosphorus Magnesium Direct Bilirubin AST ALT Alkaline Phosphatase Lactate Dehydrogenase Troponin T C-Reactive Protein Total Protein Albumin Prealbumin Triglycerides Cholesterol LDL Cholesterol Direct HDL Cholesterol Urine pH Urine WBC (Auto) Urine Creatinine Urine Total Protein Fluid Total Protein Vancomycin Trough Rheumatoid Factor Complement C4 Miscellaneous Test Crossmatch 09/07/16 09/07/16 09/07/16 09:20 11:43 11:43 WBC 19.4 H RBC Hgb 8.3 L Hct 26.4 L D MCV 72 L D MCH 22 L MCHC RDW 17.9 H Plt Count Lymph % (Auto) 8.5 L [place] % (Auto) Lymph # [place] # 1.0 H Baso # Seg Neutrophils % 85.8 H Seg Neuts % (Manual) Lymphocytes % (Manual) Monocytes % (Manual) Eosinophils % (Manual) Basophils % (Manual) Nucleated RBC % Seg Neutrophils # 16.6 H Seg Neutrophils # Man Lymphocytes # (Manual) Monocytes # (Manual) Eosinophils # (Manual) Basophils # (Manual) PT INR Fibrinogen dRVVT Confirm Interp Factor V Activity POC ABG pH POC ABG pCO2 POC ABG pO2 ABG pO2 ABG HCO3 ABG Base Excess ABG Hemoglobin Oxyhemoglobin Sodium 134 L Potassium Chloride 97.2 L Carbon Dioxide 20 L BUN 58 H Creatinine 2.9 H Glucose 147 H POC Glucose Lactic Acid Calcium Phosphorus 2.40 L Magnesium 2.40 H Direct Bilirubin AST ALT Alkaline Phosphatase Lactate Dehydrogenase Troponin T C-Reactive Protein Total Protein 5.8 L Albumin 2.2 L Prealbumin Triglycerides Cholesterol LDL Cholesterol Direct HDL Cholesterol Urine pH Urine WBC (Auto) Urine Creatinine Urine Total Protein Fluid Total Protein Vancomycin Trough Rheumatoid Factor Complement C4 58 H Miscellaneous Test Crossmatch 09/07/16 09/07/16 09/07/16 11:50 16:00 17:31 WBC RBC Hgb Hct MCV MCH MCHC RDW Plt Count Lymph % (Auto) [place] % (Auto) Lymph # [place] # Baso # Seg Neutrophils % Seg Neuts % (Manual) Lymphocytes % (Manual) Monocytes % (Manual) Eosinophils % (Manual) Basophils % (Manual) Nucleated RBC % Seg Neutrophils # Seg Neutrophils # Man Lymphocytes # (Manual) Monocytes # (Manual) Eosinophils # (Manual) Basophils # (Manual) PT INR Fibrinogen dRVVT Confirm Interp Factor V Activity POC ABG pH POC ABG pCO2 POC ABG pO2 158 H ABG pO2 ABG HCO3 ABG Base Excess ABG Hemoglobin Oxyhemoglobin Sodium Potassium Chloride Carbon Dioxide BUN Creatinine Glucose POC Glucose 175 H Lactic Acid Calcium Phosphorus Magnesium Direct Bilirubin AST ALT Alkaline Phosphatase Lactate Dehydrogenase Troponin T C-Reactive Protein Total Protein Albumin Prealbumin Triglycerides Cholesterol LDL Cholesterol Direct HDL Cholesterol Urine pH Urine WBC (Auto) Urine Creatinine 66.3 H Urine Total Protein Fluid Total Protein Vancomycin Trough Rheumatoid Factor Complement C4 Miscellaneous Test Crossmatch 09/07/16 09/08/16 09/08/16 23:50 05:46 06:18 WBC 17.8 H RBC 3.58 L Hgb 8.1 L Hct 25.5 L MCV 71 L MCH 23 L MCHC RDW 18.4 H Plt Count Lymph % (Auto) [place]ke % (Auto) Lymph # [place] # Baso # Seg Neutrophils % Seg Neuts % (Manual) 92.0 H Lymphocytes % (Manual) 6.0 L Monocytes % (Manual) Eosinophils % (Manual) Basophils % (Manual) Nucleated RBC % Seg Neutrophils # Seg Neutrophils # Man 16.4 H Lymphocytes # (Manual) 1.1 L Monocytes # (Manual) Eosinophils # (Manual) Basophils # (Manual) PT INR Fibrinogen dRVVT Confirm Interp Factor V Activity POC ABG pH POC ABG pCO2 34.3 L POC ABG pO2 71 L ABG pO2 ABG HCO3 ABG Base Excess ABG Hemoglobin Oxyhemoglobin Sodium Potassium Chloride Carbon Dioxide BUN Creatinine Glucose POC Glucose 216 H Lactic Acid Calcium Phosphorus Magnesium Direct Bilirubin AST ALT Alkaline Phosphatase Lactate Dehydrogenase Troponin T C-Reactive Protein Total Protein Albumin Prealbumin Triglycerides Cholesterol LDL Cholesterol Direct HDL Cholesterol Urine pH Urine WBC (Auto) Urine Creatinine Urine Total Protein Fluid Total Protein Vancomycin Trough Rheumatoid Factor Complement C4 Miscellaneous Test Crossmatch 09/08/16 09/08/16 09/08/16 06:18 06:51 10:55 WBC RBC Hgb Hct MCV MCH MCHC RDW Plt Count Lymph % (Auto) [place] % (Auto) Lymph # [place] # Baso # Seg Neutrophils % Seg Neuts % (Manual) Lymphocytes % (Manual) Monocytes % (Manual) Eosinophils % (Manual) Basophils % (Manual) Nucleated RBC % Seg Neutrophils # Seg Neutrophils # Man Lymphocytes # (Manual) Monocytes # (Manual) Eosinophils # (Manual) Basophils # (Manual) PT INR Fibrinogen dRVVT Confirm Interp Factor V Activity POC ABG pH POC ABG pCO2 POC ABG pO2 ABG pO2 ABG HCO3 ABG Base Excess ABG Hemoglobin Oxyhemoglobin Sodium 133 L Potassium Chloride 96.9 L Carbon Dioxide 20 L BUN 63 H Creatinine 2.7 H Glucose 195 H POC Glucose 204 H 169 H Lactic Acid Calcium Phosphorus Magnesium Direct Bilirubin AST ALT Alkaline Phosphatase Lactate Dehydrogenase Troponin T C-Reactive Protein Total Protein Albumin Prealbumin Triglycerides Cholesterol LDL Cholesterol Direct HDL Cholesterol Urine pH Urine WBC (Auto) Urine Creatinine Urine Total Protein Fluid Total Protein Vancomycin Trough Rheumatoid Factor Complement C4 Miscellaneous Test Crossmatch 09/08/16 09/08/16 09/08/16 11:48 11:48 11:48 WBC RBC Hgb Hct MCV MCH MCHC RDW Plt Count Lymph % (Auto) [place] % (Auto) Lymph # [place] # Baso # Seg Neutrophils % Seg Neuts % (Manual) Lymphocytes % (Manual) Monocytes % (Manual) Eosinophils % (Manual) Basophils % (Manual) Nucleated RBC % Seg Neutrophils # Seg Neutrophils # Man Lymphocytes # (Manual) Monocytes # (Manual) Eosinophils # (Manual) Basophils # (Manual) PT INR Fibrinogen 750 H dRVVT Confirm Interp Factor V Activity POC ABG pH POC ABG pCO2 POC ABG pO2 ABG pO2 ABG HCO3 ABG Base Excess ABG Hemoglobin Oxyhemoglobin Sodium Potassium Chloride Carbon Dioxide BUN Creatinine Glucose POC Glucose Lactic Acid Calcium Phosphorus Magnesium Direct Bilirubin AST ALT Alkaline Phosphatase Lactate Dehydrogenase Troponin T C-Reactive Protein 15.70 H Total Protein Albumin Prealbumin Triglycerides Cholesterol LDL Cholesterol Direct HDL Cholesterol Urine pH Urine WBC (Auto) Urine Creatinine Urine Total Protein Fluid Total Protein Vancomycin Trough Rheumatoid Factor 24 H Complement C4 Miscellaneous Test Crossmatch 09/08/16 09/08/16 09/09/16 15:35 18:25 00:24 WBC RBC Hgb Hct MCV MCH MCHC RDW Plt Count Lymph % (Auto) [place] % (Auto) Lymph # [place] # Baso # Seg Neutrophils % Seg Neuts % (Manual) Lymphocytes % (Manual) Monocytes % (Manual) Eosinophils % (Manual) Basophils % (Manual) Nucleated RBC % Seg Neutrophils # Seg Neutrophils # Man Lymphocytes # (Manual) Monocytes # (Manual) Eosinophils # (Manual) Basophils # (Manual) PT INR Fibrinogen dRVVT Confirm Interp Factor V Activity 182 H POC ABG pH POC ABG pCO2 POC ABG pO2 ABG pO2 ABG HCO3 ABG Base Excess ABG Hemoglobin Oxyhemoglobin Sodium Potassium Chloride Carbon Dioxide BUN Creatinine Glucose POC Glucose 184 H 216 H Lactic Acid Calcium Phosphorus Magnesium Direct Bilirubin AST ALT Alkaline Phosphatase Lactate Dehydrogenase Troponin T C-Reactive Protein Total Protein Albumin Prealbumin Triglycerides Cholesterol LDL Cholesterol Direct HDL Cholesterol Urine pH Urine WBC (Auto) Urine Creatinine Urine Total Protein Fluid Total Protein Vancomycin Trough Rheumatoid Factor Complement C4 Miscellaneous Test Crossmatch 09/09/16 09/09/16 09/09/16 03:00 03:00 04:04 WBC 27.9 H RBC Hgb 8.7 L Hct 28.1 L MCV 72 L MCH 22 L MCHC RDW 18.4 H Plt Count 485 H Lymph % (Auto) [place] % (Auto) Lymph # [place] # Baso # Seg Neutrophils % Seg Neuts % (Manual) 77.0 H Lymphocytes % (Manual) 9.0 L Monocytes % (Manual) Eosinophils % (Manual) Basophils % (Manual) Nucleated RBC % Seg Neutrophils # Seg Neutrophils # Man 21.5 H Lymphocytes # (Manual) Monocytes # (Manual) 2.0 H Eosinophils # (Manual) Basophils # (Manual) PT INR Fibrinogen dRVVT Confirm Interp Factor V Activity POC ABG pH POC ABG pCO2 POC ABG pO2 121 H ABG pO2 ABG HCO3 ABG Base Excess ABG Hemoglobin Oxyhemoglobin Sodium 135 L Potassium Chloride 96.3 L Carbon Dioxide 21 L BUN 83 H Creatinine 3.0 H Glucose 135 H POC Glucose Lactic Acid Calcium Phosphorus Magnesium Direct Bilirubin AST ALT Alkaline Phosphatase Lactate Dehydrogenase Troponin T C-Reactive Protein Total Protein Albumin Prealbumin Triglycerides Cholesterol LDL Cholesterol Direct HDL Cholesterol Urine pH Urine WBC (Auto) Urine Creatinine Urine Total Protein Fluid Total Protein Vancomycin Trough Rheumatoid Factor Complement C4 Miscellaneous Test Crossmatch 09/09/16 09/09/16 09/09/16 05:41 11:55 14:13 WBC RBC Hgb Hct MCV MCH MCHC RDW Plt Count Lymph % (Auto) [place] % (Auto) Lymph # [place] # Baso # Seg Neutrophils % Seg Neuts % (Manual) Lymphocytes % (Manual) Monocytes % (Manual) Eosinophils % (Manual) Basophils % (Manual) Nucleated RBC % Seg Neutrophils # Seg Neutrophils # Man Lymphocytes # (Manual) Monocytes # (Manual) Eosinophils # (Manual) Basophils # (Manual) PT INR Fibrinogen dRVVT Confirm Interp Factor V Activity POC ABG pH POC ABG pCO2 POC ABG pO2 ABG pO2 ABG HCO3 ABG Base Excess ABG Hemoglobin Oxyhemoglobin Sodium Potassium Chloride Carbon Dioxide BUN Creatinine Glucose POC Glucose 155 H 186 H Lactic Acid Calcium Phosphorus Magnesium Direct Bilirubin AST ALT Alkaline Phosphatase Lactate Dehydrogenase Troponin T C-Reactive Protein Total Protein Albumin Prealbumin Triglycerides Cholesterol LDL Cholesterol Direct HDL Cholesterol Urine pH Urine WBC (Auto) 25.0 H Urine Creatinine Urine Total Protein Fluid Total Protein Vancomycin Trough Rheumatoid Factor Complement C4 Miscellaneous Test Crossmatch 09/09/16 09/09/16 09/10/16 17:33 23:13 05:09 WBC RBC Hgb Hct MCV MCH MCHC RDW Plt Count Lymph % (Auto) [place] % (Auto) Lymph # [place] # Baso # Seg Neutrophils % Seg Neuts % (Manual) Lymphocytes % (Manual) Monocytes % (Manual) Eosinophils % (Manual) Basophils % (Manual) Nucleated RBC % Seg Neutrophils # Seg Neutrophils # Man Lymphocytes # (Manual) Monocytes # (Manual) Eosinophils # (Manual) Basophils # (Manual) PT INR Fibrinogen dRVVT Confirm Interp Factor V Activity POC ABG pH POC ABG pCO2 POC ABG pO2 74 L ABG pO2 ABG HCO3 ABG Base Excess ABG Hemoglobin Oxyhemoglobin Sodium Potassium Chloride Carbon Dioxide BUN Creatinine Glucose POC Glucose 211 H 215 H Lactic Acid Calcium Phosphorus Magnesium Direct Bilirubin AST ALT Alkaline Phosphatase Lactate Dehydrogenase Troponin T C-Reactive Protein Total Protein Albumin Prealbumin Triglycerides Cholesterol LDL Cholesterol Direct HDL Cholesterol Urine pH Urine WBC (Auto) Urine Creatinine Urine Total Protein Fluid Total Protein Vancomycin Trough Rheumatoid Factor Complement C4 Miscellaneous Test Crossmatch 09/10/16 09/10/16 09/10/16 05:17 05:17 11:31 WBC 15.8 H RBC 3.25 L Hgb 7.3 L Hct 22.9 L MCV 71 L MCH 23 L MCHC RDW 18.4 H Plt Count Lymph % (Auto) [place] % (Auto) Lymph # [place] # Baso # Seg Neutrophils % Seg Neuts % (Manual) 91.0 H Lymphocytes % (Manual) 4.0 L Monocytes % (Manual) Eosinophils % (Manual) Basophils % (Manual) Nucleated RBC % Seg Neutrophils # Seg Neutrophils # Man 14.4 H Lymphocytes # (Manual) 0.6 L Monocytes # (Manual) Eosinophils # (Manual) Basophils # (Manual) PT INR Fibrinogen dRVVT Confirm Interp Factor V Activity POC ABG pH POC ABG pCO2 POC ABG pO2 ABG pO2 ABG HCO3 ABG Base Excess ABG Hemoglobin Oxyhemoglobin Sodium Potassium Chloride Carbon Dioxide 21 L BUN 93 H Creatinine 2.9 H Glucose 146 H POC Glucose 188 H Lactic Acid Calcium 8.1 L Phosphorus Magnesium Direct Bilirubin AST ALT Alkaline Phosphatase Lactate Dehydrogenase Troponin T C-Reactive Protein Total Protein Albumin Prealbumin Triglycerides Cholesterol LDL Cholesterol Direct HDL Cholesterol Urine pH Urine WBC (Auto) Urine Creatinine Urine Total Protein Fluid Total Protein Vancomycin Trough Rheumatoid Factor Complement C4 Miscellaneous Test Crossmatch 09/10/16 09/10/16 09/10/16 13:17 17:20 23:32 WBC RBC Hgb Hct MCV MCH MCHC RDW Plt Count Lymph % (Auto) [place] % (Auto) Lymph # [place] # Baso # Seg Neutrophils % Seg Neuts % (Manual) Lymphocytes % (Manual) Monocytes % (Manual) Eosinophils % (Manual) Basophils % (Manual) Nucleated RBC % Seg Neutrophils # Seg Neutrophils # Man Lymphocytes # (Manual) Monocytes # (Manual) Eosinophils # (Manual) Basophils # (Manual) PT INR Fibrinogen dRVVT Confirm Interp Factor V Activity POC ABG pH POC ABG pCO2 POC ABG pO2 ABG pO2 ABG HCO3 ABG Base Excess ABG Hemoglobin Oxyhemoglobin Sodium Potassium Chloride Carbon Dioxide BUN Creatinine Glucose POC Glucose 199 H 186 H Lactic Acid Calcium Phosphorus Magnesium Direct Bilirubin AST ALT Alkaline Phosphatase Lactate Dehydrogenase Troponin T C-Reactive Protein Total Protein Albumin Prealbumin Triglycerides Cholesterol LDL Cholesterol Direct HDL Cholesterol Urine pH Urine WBC (Auto) Urine Creatinine Urine Total Protein Fluid Total Protein Vancomycin Trough Rheumatoid Factor Complement C4 Miscellaneous Test Crossmatch See Detail 09/11/16 09/11/16 09/11/16 05:10 05:10 05:17 WBC 28.4 H RBC Hgb 9.2 L Hct 29.3 L D MCV 73 L MCH 23 L MCHC RDW 18.9 H Plt Count 452 H Lymph % (Auto) [place] % (Auto) Lymph # [place] # Baso # Seg Neutrophils % Seg Neuts % (Manual) 89.5 H Lymphocytes % (Manual) 2.0 L Monocytes % (Manual) Eosinophils % (Manual) Basophils % (Manual) Nucleated RBC % Seg Neutrophils # Seg Neutrophils # Man 25.4 H Lymphocytes # (Manual) 0.6 L Monocytes # (Manual) 1.3 H Eosinophils # (Manual) Basophils # (Manual) PT INR Fibrinogen dRVVT Confirm Interp Factor V Activity POC ABG pH POC ABG pCO2 POC ABG pO2 ABG pO2 ABG HCO3 ABG Base Excess ABG Hemoglobin Oxyhemoglobin Sodium 136 L Potassium Chloride Carbon Dioxide 18 L BUN 107 H Creatinine 2.6 H Glucose 187 H POC Glucose 230 H Lactic Acid Calcium 8.3 L Phosphorus Magnesium Direct Bilirubin AST ALT Alkaline Phosphatase Lactate Dehydrogenase Troponin T C-Reactive Protein Total Protein Albumin Prealbumin Triglycerides Cholesterol LDL Cholesterol Direct HDL Cholesterol Urine pH Urine WBC (Auto) Urine Creatinine Urine Total Protein Fluid Total Protein Vancomycin Trough Rheumatoid Factor Complement C4 Miscellaneous Test Crossmatch 09/11/16 09/11/16 09/11/16 05:55 12:02 17:32 WBC RBC Hgb Hct MCV MCH MCHC RDW Plt Count Lymph % (Auto) [place] % (Auto) Lymph # [place] # Baso # Seg Neutrophils % Seg Neuts % (Manual) Lymphocytes % (Manual) Monocytes % (Manual) Eosinophils % (Manual) Basophils % (Manual) Nucleated RBC % Seg Neutrophils # Seg Neutrophils # Man Lymphocytes # (Manual) Monocytes # (Manual) Eosinophils # (Manual) Basophils # (Manual) PT INR Fibrinogen dRVVT Confirm Interp Factor V Activity POC ABG pH POC ABG pCO2 33.8 L POC ABG pO2 ABG pO2 ABG HCO3 ABG Base Excess ABG Hemoglobin Oxyhemoglobin Sodium Potassium Chloride Carbon Dioxide BUN Creatinine Glucose POC Glucose 191 H 239 H Lactic Acid Calcium Phosphorus Magnesium Direct Bilirubin AST ALT Alkaline Phosphatase Lactate Dehydrogenase Troponin T C-Reactive Protein Total Protein Albumin Prealbumin Triglycerides Cholesterol LDL Cholesterol Direct HDL Cholesterol Urine pH Urine WBC (Auto) Urine Creatinine Urine Total Protein Fluid Total Protein Vancomycin Trough Rheumatoid Factor Complement C4 Miscellaneous Test Crossmatch 09/11/16 09/12/16 09/12/16 23:52 05:09 05:32 WBC RBC Hgb Hct MCV MCH MCHC RDW Plt Count Lymph % (Auto) [place] % (Auto) Lymph # [place] # Baso # Seg Neutrophils % Seg Neuts % (Manual) Lymphocytes % (Manual) Monocytes % (Manual) Eosinophils % (Manual) Basophils % (Manual) Nucleated RBC % Seg Neutrophils # Seg Neutrophils # Man Lymphocytes # (Manual) Monocytes # (Manual) Eosinophils # (Manual) Basophils # (Manual) PT INR Fibrinogen dRVVT Confirm Interp Factor V Activity POC ABG pH POC ABG pCO2 34.6 L POC ABG pO2 ABG pO2 ABG HCO3 ABG Base Excess ABG Hemoglobin Oxyhemoglobin Sodium Potassium Chloride Carbon Dioxide BUN Creatinine Glucose POC Glucose 265 H 184 H Lactic Acid Calcium Phosphorus Magnesium Direct Bilirubin AST ALT Alkaline Phosphatase Lactate Dehydrogenase Troponin T C-Reactive Protein Total Protein Albumin Prealbumin Triglycerides Cholesterol LDL Cholesterol Direct HDL Cholesterol Urine pH Urine WBC (Auto) Urine Creatinine Urine Total Protein Fluid Total Protein Vancomycin Trough Rheumatoid Factor Complement C4 Miscellaneous Test Crossmatch 09/12/16 09/12/16 09/12/16 06:45 06:45 07:22 WBC 31.7 H RBC 3.54 L Hgb 8.3 L Hct 25.9 L MCV 73 L MCH 23 L MCHC RDW 18.9 H Plt Count Lymph % (Auto) [place] % (Auto) Lymph # [place] # Baso # Seg Neutrophils % Seg Neuts % (Manual) 88.5 H Lymphocytes % (Manual) 4.5 L Monocytes % (Manual) Eosinophils % (Manual) Basophils % (Manual) Nucleated RBC % Seg Neutrophils # Seg Neutrophils # Man 28.1 H Lymphocytes # (Manual) Monocytes # (Manual) 1.0 H Eosinophils # (Manual) Basophils # (Manual) PT INR Fibrinogen dRVVT Confirm Interp Factor V Activity POC ABG pH POC ABG pCO2 POC ABG pO2 ABG pO2 ABG HCO3 ABG Base Excess ABG Hemoglobin Oxyhemoglobin Sodium Potassium Chloride Carbon Dioxide 20 L BUN 115 H Creatinine 2.7 H Glucose 165 H POC Glucose Lactic Acid Calcium 8.0 L Phosphorus Magnesium Direct Bilirubin AST ALT Alkaline Phosphatase Lactate Dehydrogenase Troponin T C-Reactive Protein Total Protein Albumin Prealbumin Triglycerides 217 H Cholesterol LDL Cholesterol Direct HDL Cholesterol Urine pH Urine WBC (Auto) Urine Creatinine Urine Total Protein Fluid Total Protein Vancomycin Trough Rheumatoid Factor Complement C4 Miscellaneous Test Crossmatch 09/12/16 09/12/16 09/12/16 07:22 09:59 12:21 WBC RBC Hgb Hct MCV MCH MCHC RDW Plt Count Lymph % (Auto) [place] % (Auto) Lymph # [place] # Baso # Seg Neutrophils % Seg Neuts % (Manual) Lymphocytes % (Manual) Monocytes % (Manual) Eosinophils % (Manual) Basophils % (Manual) Nucleated RBC % Seg Neutrophils # Seg Neutrophils # Man Lymphocytes # (Manual) Monocytes # (Manual) Eosinophils # (Manual) Basophils # (Manual) PT INR Fibrinogen dRVVT Confirm Interp Positive H Factor V Activity POC ABG pH POC ABG pCO2 POC ABG pO2 ABG pO2 ABG HCO3 ABG Base Excess ABG Hemoglobin Oxyhemoglobin Sodium Potassium Chloride Carbon Dioxide BUN Creatinine Glucose POC Glucose 224 H Lactic Acid Calcium Phosphorus Magnesium Direct Bilirubin AST ALT Alkaline Phosphatase Lactate Dehydrogenase Troponin T C-Reactive Protein 1.70 H Total Protein Albumin Prealbumin Triglycerides Cholesterol LDL Cholesterol Direct HDL Cholesterol Urine pH Urine WBC (Auto) Urine Creatinine Urine Total Protein Fluid Total Protein Vancomycin Trough Rheumatoid Factor Complement C4 Miscellaneous Test Crossmatch 09/12/16 09/12/16 09/13/16 16:51 23:28 04:00 WBC 45.0 H* RBC Hgb 9.4 L Hct MCV 75 L MCH 23 L MCHC RDW 19.0 H Plt Count 470 H Lymph % (Auto) [place] % (Auto) Lymph # [place] # Baso # Seg Neutrophils % Seg Neuts % (Manual) 89.0 H Lymphocytes % (Manual) 5.0 L Monocytes % (Manual) Eosinophils % (Manual) Basophils % (Manual) Nucleated RBC % Seg Neutrophils # Seg Neutrophils # Man 40.1 H Lymphocytes # (Manual) Monocytes # (Manual) Eosinophils # (Manual) Basophils # (Manual) PT INR Fibrinogen dRVVT Confirm Interp Factor V Activity POC ABG pH POC ABG pCO2 POC ABG pO2 ABG pO2 ABG HCO3 ABG Base Excess ABG Hemoglobin Oxyhemoglobin Sodium Potassium Chloride Carbon Dioxide BUN Creatinine Glucose POC Glucose 169 H 150 H Lactic Acid Calcium Phosphorus Magnesium Direct Bilirubin AST ALT Alkaline Phosphatase Lactate Dehydrogenase Troponin T C-Reactive Protein Total Protein Albumin Prealbumin Triglycerides Cholesterol LDL Cholesterol Direct HDL Cholesterol Urine pH Urine WBC (Auto) Urine Creatinine Urine Total Protein Fluid Total Protein Vancomycin Trough Rheumatoid Factor Complement C4 Miscellaneous Test Crossmatch 09/13/16 09/13/16 09/13/16 04:00 11:26 17:31 WBC RBC Hgb Hct MCV MCH MCHC RDW Plt Count Lymph % (Auto) [place] % (Auto) Lymph # [place] # Baso # Seg Neutrophils % Seg Neuts % (Manual) Lymphocytes % (Manual) Monocytes % (Manual) Eosinophils % (Manual) Basophils % (Manual) Nucleated RBC % Seg Neutrophils # Seg Neutrophils # Man Lymphocytes # (Manual) Monocytes # (Manual) Eosinophils # (Manual) Basophils # (Manual) PT INR Fibrinogen dRVVT Confirm Interp Factor V Activity POC ABG pH POC ABG pCO2 POC ABG pO2 ABG pO2 ABG HCO3 ABG Base Excess ABG Hemoglobin Oxyhemoglobin Sodium Potassium Chloride Carbon Dioxide 20 L BUN 116 H Creatinine 3.0 H Glucose 172 H POC Glucose 140 H 183 H Lactic Acid Calcium Phosphorus Magnesium Direct Bilirubin AST ALT Alkaline Phosphatase Lactate Dehydrogenase Troponin T C-Reactive Protein Total Protein 6.2 L Albumin 2.9 L Prealbumin Triglycerides Cholesterol LDL Cholesterol Direct HDL Cholesterol Urine pH Urine WBC (Auto) Urine Creatinine Urine Total Protein Fluid Total Protein Vancomycin Trough Rheumatoid Factor Complement C4 Miscellaneous Test Crossmatch 09/13/16 09/14/16 09/14/16 23:23 04:06 04:07 WBC 29.4 H RBC Hgb 8.9 L Hct 27.3 L MCV 75 L MCH 24 L MCHC RDW 19.1 H Plt Count Lymph % (Auto) [place] % (Auto) Lymph # [place] # Baso # Seg Neutrophils % Seg Neuts % (Manual) 84.0 H Lymphocytes % (Manual) 6.0 L Monocytes % (Manual) 9.0 H Eosinophils % (Manual) Basophils % (Manual) Nucleated RBC % Seg Neutrophils # Seg Neutrophils # Man 24.7 H Lymphocytes # (Manual) Monocytes # (Manual) 2.6 H Eosinophils # (Manual) Basophils # (Manual) PT INR Fibrinogen dRVVT Confirm Interp Factor V Activity POC ABG pH 7.342 L POC ABG pCO2 POC ABG pO2 116 H ABG pO2 ABG HCO3 ABG Base Excess ABG Hemoglobin Oxyhemoglobin Sodium Potassium Chloride Carbon Dioxide BUN Creatinine Glucose POC Glucose 154 H Lactic Acid Calcium Phosphorus Magnesium Direct Bilirubin AST ALT Alkaline Phosphatase Lactate Dehydrogenase Troponin T C-Reactive Protein Total Protein Albumin Prealbumin Triglycerides Cholesterol LDL Cholesterol Direct HDL Cholesterol Urine pH Urine WBC (Auto) Urine Creatinine Urine Total Protein Fluid Total Protein Vancomycin Trough Rheumatoid Factor Complement C4 Miscellaneous Test Crossmatch 09/14/16 09/14/16 09/14/16 04:07 05:29 12:19 WBC RBC Hgb Hct MCV MCH MCHC RDW Plt Count Lymph % (Auto) [place] % (Auto) Lymph # [place] # Baso # Seg Neutrophils % Seg Neuts % (Manual) Lymphocytes % (Manual) Monocytes % (Manual) Eosinophils % (Manual) Basophils % (Manual) Nucleated RBC % Seg Neutrophils # Seg Neutrophils # Man Lymphocytes # (Manual) Monocytes # (Manual) Eosinophils # (Manual) Basophils # (Manual) PT INR Fibrinogen dRVVT Confirm Interp Factor V Activity POC ABG pH POC ABG pCO2 POC ABG pO2 ABG pO2 ABG HCO3 ABG Base Excess ABG Hemoglobin Oxyhemoglobin Sodium 136 L Potassium Chloride Carbon Dioxide 18 L BUN 121 H Creatinine 2.8 H Glucose 214 H POC Glucose 239 H 181 H Lactic Acid Calcium Phosphorus Magnesium Direct Bilirubin AST ALT Alkaline Phosphatase Lactate Dehydrogenase Troponin T C-Reactive Protein Total Protein Albumin Prealbumin Triglycerides Cholesterol LDL Cholesterol Direct HDL Cholesterol Urine pH Urine WBC (Auto) Urine Creatinine Urine Total Protein Fluid Total Protein Vancomycin Trough Rheumatoid Factor Complement C4 Miscellaneous Test Crossmatch 09/14/16 09/14/16 09/15/16 18:12 23:37 05:00 WBC 26.1 H RBC 3.05 L Hgb 7.2 L Hct 22.9 L MCV 75 L MCH 24 L MCHC RDW 19.0 H Plt Count Lymph % (Auto) [place] % (Auto) Lymph # [place] # Baso # Seg Neutrophils % Seg Neuts % (Manual) Lymphocytes % (Manual) Monocytes % (Manual) Eosinophils % (Manual) Basophils % (Manual) Nucleated RBC % Seg Neutrophils # Seg Neutrophils # Man Lymphocytes # (Manual) Monocytes # (Manual) Eosinophils # (Manual) Basophils # (Manual) PT INR Fibrinogen dRVVT Confirm Interp Factor V Activity POC ABG pH POC ABG pCO2 POC ABG pO2 ABG pO2 ABG HCO3 ABG Base Excess ABG Hemoglobin Oxyhemoglobin Sodium Potassium Chloride Carbon Dioxide BUN Creatinine Glucose POC Glucose 266 H 154 H Lactic Acid Calcium Phosphorus Magnesium Direct Bilirubin AST ALT Alkaline Phosphatase Lactate Dehydrogenase Troponin T C-Reactive Protein Total Protein Albumin Prealbumin Triglycerides Cholesterol LDL Cholesterol Direct HDL Cholesterol Urine pH Urine WBC (Auto) Urine Creatinine Urine Total Protein Fluid Total Protein Vancomycin Trough Rheumatoid Factor Complement C4 Miscellaneous Test Crossmatch 09/15/16 09/15/16 09/15/16 05:00 05:17 12:45 WBC RBC Hgb Hct MCV MCH MCHC RDW Plt Count Lymph % (Auto) [place] % (Auto) Lymph # [place] # Baso # Seg Neutrophils % Seg Neuts % (Manual) Lymphocytes % (Manual) Monocytes % (Manual) Eosinophils % (Manual) Basophils % (Manual) Nucleated RBC % Seg Neutrophils # Seg Neutrophils # Man Lymphocytes # (Manual) Monocytes # (Manual) Eosinophils # (Manual) Basophils # (Manual) PT INR Fibrinogen dRVVT Confirm Interp Factor V Activity POC ABG pH POC ABG pCO2 POC ABG pO2 ABG pO2 ABG HCO3 ABG Base Excess ABG Hemoglobin Oxyhemoglobin Sodium Potassium 5.2 H Chloride Carbon Dioxide 18 L BUN 139 H Creatinine 3.7 H Glucose 227 H POC Glucose 226 H 244 H Lactic Acid Calcium 8.3 L Phosphorus Magnesium Direct Bilirubin AST ALT Alkaline Phosphatase Lactate Dehydrogenase Troponin T C-Reactive Protein Total Protein Albumin Prealbumin Triglycerides Cholesterol LDL Cholesterol Direct HDL Cholesterol Urine pH Urine WBC (Auto) Urine Creatinine Urine Total Protein Fluid Total Protein Vancomycin Trough Rheumatoid Factor Complement C4 Miscellaneous Test Crossmatch 09/15/16 09/15/16 09/15/16 14:32 17:33 23:35 WBC RBC Hgb Hct MCV MCH MCHC RDW Plt Count Lymph % (Auto) [place] % (Auto) Lymph # [place] # Baso # Seg Neutrophils % Seg Neuts % (Manual) Lymphocytes % (Manual) Monocytes % (Manual) Eosinophils % (Manual) Basophils % (Manual) Nucleated RBC % Seg Neutrophils # Seg Neutrophils # Man Lymphocytes # (Manual) Monocytes # (Manual) Eosinophils # (Manual) Basophils # (Manual) PT INR Fibrinogen dRVVT Confirm Interp Factor V Activity POC ABG pH POC ABG pCO2 27.7 L POC ABG pO2 120 H ABG pO2 ABG HCO3 ABG Base Excess ABG Hemoglobin Oxyhemoglobin Sodium Potassium Chloride Carbon Dioxide BUN Creatinine Glucose POC Glucose 232 H 167 H Lactic Acid Calcium Phosphorus Magnesium Direct Bilirubin AST ALT Alkaline Phosphatase Lactate Dehydrogenase Troponin T C-Reactive Protein Total Protein Albumin Prealbumin Triglycerides Cholesterol LDL Cholesterol Direct HDL Cholesterol Urine pH Urine WBC (Auto) Urine Creatinine Urine Total Protein Fluid Total Protein Vancomycin Trough Rheumatoid Factor Complement C4 Miscellaneous Test Crossmatch 09/16/16 09/16/16 09/16/16 03:58 10:27 10:27 WBC 19.0 H RBC 2.77 L Hgb 6.5 L Hct 20.9 L MCV 76 L MCH 23 L MCHC RDW 19.3 H Plt Count Lymph % (Auto) 11.0 L [place] % (Auto) Lymph # [place] # 1.1 H Baso # Seg Neutrophils % 82.5 H Seg Neuts % (Manual) Lymphocytes % (Manual) Monocytes % (Manual) Eosinophils % (Manual) Basophils % (Manual) Nucleated RBC % Seg Neutrophils # 15.7 H Seg Neutrophils # Man Lymphocytes # (Manual) Monocytes # (Manual) Eosinophils # (Manual) Basophils # (Manual) PT INR Fibrinogen dRVVT Confirm Interp Factor V Activity POC ABG pH POC ABG pCO2 POC ABG pO2 ABG pO2 ABG HCO3 ABG Base Excess ABG Hemoglobin Oxyhemoglobin Sodium Potassium Chloride 109.3 H Carbon Dioxide 18 L BUN 139 H Creatinine 4.1 H Glucose 144 H POC Glucose 146 H Lactic Acid Calcium 8.1 L Phosphorus Magnesium Direct Bilirubin AST ALT Alkaline Phosphatase Lactate Dehydrogenase Troponin T C-Reactive Protein Total Protein Albumin Prealbumin Triglycerides Cholesterol LDL Cholesterol Direct HDL Cholesterol Urine pH Urine WBC (Auto) Urine Creatinine Urine Total Protein Fluid Total Protein Vancomycin Trough Rheumatoid Factor Complement C4 Miscellaneous Test Crossmatch 09/16/16 09/16/16 09/16/16 12:04 12:10 13:55 WBC RBC Hgb Hct MCV MCH MCHC RDW Plt Count Lymph % (Auto) [place] % (Auto) Lymph # [place] # Baso # Seg Neutrophils % Seg Neuts % (Manual) Lymphocytes % (Manual) Monocytes % (Manual) Eosinophils % (Manual) Basophils % (Manual) Nucleated RBC % Seg Neutrophils # Seg Neutrophils # Man Lymphocytes # (Manual) Monocytes # (Manual) Eosinophils # (Manual) Basophils # (Manual) PT INR Fibrinogen dRVVT Confirm Interp Factor V Activity POC ABG pH POC ABG pCO2 32.9 L POC ABG pO2 ABG pO2 ABG HCO3 ABG Base Excess ABG Hemoglobin Oxyhemoglobin Sodium Potassium Chloride Carbon Dioxide BUN Creatinine Glucose POC Glucose 185 H Lactic Acid Calcium Phosphorus Magnesium Direct Bilirubin AST ALT Alkaline Phosphatase Lactate Dehydrogenase Troponin T C-Reactive Protein Total Protein Albumin Prealbumin Triglycerides Cholesterol LDL Cholesterol Direct HDL Cholesterol Urine pH Urine WBC (Auto) Urine Creatinine Urine Total Protein Fluid Total Protein Vancomycin Trough Rheumatoid Factor Complement C4 Miscellaneous Test Crossmatch See Detail 09/16/16 09/16/16 09/16/16 17:55 19:19 23:48 WBC RBC Hgb Hct MCV MCH MCHC RDW Plt Count Lymph % (Auto) [place] % (Auto) Lymph # [place] # Baso # Seg Neutrophils % Seg Neuts % (Manual) Lymphocytes % (Manual) Monocytes % (Manual) Eosinophils % (Manual) Basophils % (Manual) Nucleated RBC % Seg Neutrophils # Seg Neutrophils # Man Lymphocytes # (Manual) Monocytes # (Manual) Eosinophils # (Manual) Basophils # (Manual) PT INR Fibrinogen dRVVT Confirm Interp Factor V Activity POC ABG pH POC ABG pCO2 POC ABG pO2 ABG pO2 ABG HCO3 ABG Base Excess ABG Hemoglobin Oxyhemoglobin Sodium Potassium Chloride Carbon Dioxide BUN Creatinine Glucose POC Glucose 222 H 107 H Lactic Acid Calcium Phosphorus Magnesium Direct Bilirubin AST ALT Alkaline Phosphatase Lactate Dehydrogenase Troponin T C-Reactive Protein Total Protein Albumin Prealbumin Triglycerides Cholesterol LDL Cholesterol Direct HDL Cholesterol Urine pH Urine WBC (Auto) Urine Creatinine 47.4 H Urine Total Protein 16 H Fluid Total Protein Vancomycin Trough Rheumatoid Factor Complement C4 Miscellaneous Test Crossmatch 09/17/16 09/17/16 09/17/16 03:45 03:45 04:55 WBC 19.6 H RBC 3.41 L Hgb 8.5 L Hct 26.7 L MCV 78 L MCH 25 L MCHC RDW 19.9 H Plt Count Lymph % (Auto) 9.3 L [place] % (Auto) Lymph # [place] # 1.2 H Baso # Seg Neutrophils % 83.9 H Seg Neuts % (Manual) Lymphocytes % (Manual) Monocytes % (Manual) Eosinophils % (Manual) Basophils % (Manual) Nucleated RBC % Seg Neutrophils # 16.4 H Seg Neutrophils # Man Lymphocytes # (Manual) Monocytes # (Manual) Eosinophils # (Manual) Basophils # (Manual) PT INR Fibrinogen dRVVT Confirm Interp Factor V Activity POC ABG pH POC ABG pCO2 POC ABG pO2 ABG pO2 ABG HCO3 ABG Base Excess ABG Hemoglobin Oxyhemoglobin Sodium 146 H Potassium 5.1 H Chloride 110.9 H Carbon Dioxide 16 L BUN 146 H Creatinine 4.0 H Glucose 108 H POC Glucose 133 H Lactic Acid Calcium Phosphorus Magnesium 3.00 H Direct Bilirubin AST ALT Alkaline Phosphatase Lactate Dehydrogenase Troponin T C-Reactive Protein Total Protein Albumin Prealbumin Triglycerides Cholesterol LDL Cholesterol Direct HDL Cholesterol Urine pH Urine WBC (Auto) Urine Creatinine Urine Total Protein Fluid Total Protein Vancomycin Trough Rheumatoid Factor Complement C4 Miscellaneous Test Crossmatch 09/17/16 09/17/16 09/17/16 11:15 17:33 23:47 WBC RBC Hgb Hct MCV MCH MCHC RDW Plt Count Lymph % (Auto) [place] % (Auto) Lymph # [place] # Baso # Seg Neutrophils % Seg Neuts % (Manual) Lymphocytes % (Manual) Monocytes % (Manual) Eosinophils % (Manual) Basophils % (Manual) Nucleated RBC % Seg Neutrophils # Seg Neutrophils # Man Lymphocytes # (Manual) Monocytes # (Manual) Eosinophils # (Manual) Basophils # (Manual) PT INR Fibrinogen dRVVT Confirm Interp Factor V Activity POC ABG pH POC ABG pCO2 POC ABG pO2 ABG pO2 ABG HCO3 ABG Base Excess ABG Hemoglobin Oxyhemoglobin Sodium Potassium Chloride Carbon Dioxide BUN Creatinine Glucose POC Glucose 176 H 246 H 148 H Lactic Acid Calcium Phosphorus Magnesium Direct Bilirubin AST ALT Alkaline Phosphatase Lactate Dehydrogenase Troponin T C-Reactive Protein Total Protein Albumin Prealbumin Triglycerides Cholesterol LDL Cholesterol Direct HDL Cholesterol Urine pH Urine WBC (Auto) Urine Creatinine Urine Total Protein Fluid Total Protein Vancomycin Trough Rheumatoid Factor Complement C4 Miscellaneous Test Crossmatch 09/18/16 09/18/16 09/18/16 05:33 08:31 08:31 WBC 18.0 H RBC 3.17 L Hgb 9.0 L Hct 25.7 L MCV MCH MCHC 35 H RDW 20.4 H Plt Count Lymph % (Auto) [place] % (Auto) Lymph # [place] # Baso # Seg Neutrophils % Seg Neuts % (Manual) Lymphocytes % (Manual) Monocytes % (Manual) Eosinophils % (Manual) Basophils % (Manual) Nucleated RBC % Seg Neutrophils # Seg Neutrophils # Man Lymphocytes # (Manual) Monocytes # (Manual) Eosinophils # (Manual) Basophils # (Manual) PT INR Fibrinogen dRVVT Confirm Interp Factor V Activity POC ABG pH POC ABG pCO2 POC ABG pO2 ABG pO2 ABG HCO3 ABG Base Excess ABG Hemoglobin Oxyhemoglobin Sodium Potassium Chloride Carbon Dioxide 15 L BUN 124 H Creatinine 3.8 H Glucose POC Glucose 120 H Lactic Acid Calcium 8.1 L Phosphorus Magnesium Direct Bilirubin AST ALT Alkaline Phosphatase Lactate Dehydrogenase Troponin T C-Reactive Protein Total Protein Albumin Prealbumin Triglycerides Cholesterol LDL Cholesterol Direct HDL Cholesterol Urine pH Urine WBC (Auto) Urine Creatinine Urine Total Protein Fluid Total Protein Vancomycin Trough Rheumatoid Factor Complement C4 Miscellaneous Test Crossmatch 09/18/16 09/18/16 09/18/16 12:03 15:34 17:50 WBC RBC Hgb Hct MCV MCH MCHC RDW Plt Count Lymph % (Auto) [place] % (Auto) Lymph # [place] # Baso # Seg Neutrophils % Seg Neuts % (Manual) Lymphocytes % (Manual) Monocytes % (Manual) Eosinophils % (Manual) Basophils % (Manual) Nucleated RBC % Seg Neutrophils # Seg Neutrophils # Man Lymphocytes # (Manual) Monocytes # (Manual) Eosinophils # (Manual) Basophils # (Manual) PT INR Fibrinogen dRVVT Confirm Interp Factor V Activity POC ABG pH POC ABG pCO2 25.7 L POC ABG pO2 66 L ABG pO2 ABG HCO3 ABG Base Excess ABG Hemoglobin Oxyhemoglobin Sodium Potassium Chloride Carbon Dioxide BUN Creatinine Glucose POC Glucose 156 H 220 H Lactic Acid Calcium Phosphorus Magnesium Direct Bilirubin AST ALT Alkaline Phosphatase Lactate Dehydrogenase Troponin T C-Reactive Protein Total Protein Albumin Prealbumin Triglycerides Cholesterol LDL Cholesterol Direct HDL Cholesterol Urine pH Urine WBC (Auto) Urine Creatinine Urine Total Protein Fluid Total Protein Vancomycin Trough Rheumatoid Factor Complement C4 Miscellaneous Test Crossmatch 09/19/16 09/19/16 09/19/16 06:21 09:50 09:50 WBC 17.1 H RBC 3.49 L Hgb 9.0 L Hct 28.1 L MCV MCH 26 L MCHC RDW 20.8 H Plt Count Lymph % (Auto) 11.5 L [place] % (Auto) 7.5 H Lymph # [place] # 1.3 H Baso # Seg Neutrophils % 79.8 H Seg Neuts % (Manual) Lymphocytes % (Manual) Monocytes % (Manual) Eosinophils % (Manual) Basophils % (Manual) Nucleated RBC % Seg Neutrophils # 13.7 H Seg Neutrophils # Man Lymphocytes # (Manual) Monocytes # (Manual) Eosinophils # (Manual) Basophils # (Manual) PT INR Fibrinogen dRVVT Confirm Interp Factor V Activity POC ABG pH POC ABG pCO2 POC ABG pO2 ABG pO2 ABG HCO3 ABG Base Excess ABG Hemoglobin Oxyhemoglobin Sodium Potassium Chloride 108.6 H Carbon Dioxide 15 L BUN 125 H Creatinine 4.1 H Glucose 124 H POC Glucose 119 H Lactic Acid Calcium Phosphorus Magnesium Direct Bilirubin AST ALT Alkaline Phosphatase Lactate Dehydrogenase Troponin T C-Reactive Protein Total Protein Albumin Prealbumin Triglycerides Cholesterol LDL Cholesterol Direct HDL Cholesterol Urine pH Urine WBC (Auto) Urine Creatinine Urine Total Protein Fluid Total Protein Vancomycin Trough Rheumatoid Factor Complement C4 Miscellaneous Test Crossmatch 09/19/16 09/19/16 09/19/16 11:25 17:53 23:36 WBC RBC Hgb Hct MCV MCH MCHC RDW Plt Count Lymph % (Auto) [place] % (Auto) Lymph # [place] # Baso # Seg Neutrophils % Seg Neuts % (Manual) Lymphocytes % (Manual) Monocytes % (Manual) Eosinophils % (Manual) Basophils % (Manual) Nucleated RBC % Seg Neutrophils # Seg Neutrophils # Man Lymphocytes # (Manual) Monocytes # (Manual) Eosinophils # (Manual) Basophils # (Manual) PT INR Fibrinogen dRVVT Confirm Interp Factor V Activity POC ABG pH POC ABG pCO2 POC ABG pO2 ABG pO2 ABG HCO3 ABG Base Excess ABG Hemoglobin Oxyhemoglobin Sodium Potassium Chloride Carbon Dioxide BUN Creatinine Glucose POC Glucose 160 H 245 H 121 H Lactic Acid Calcium Phosphorus Magnesium Direct Bilirubin AST ALT Alkaline Phosphatase Lactate Dehydrogenase Troponin T C-Reactive Protein Total Protein Albumin Prealbumin Triglycerides Cholesterol LDL Cholesterol Direct HDL Cholesterol Urine pH Urine WBC (Auto) Urine Creatinine Urine Total Protein Fluid Total Protein Vancomycin Trough Rheumatoid Factor Complement C4 Miscellaneous Test Crossmatch 09/20/16 09/20/16 09/20/16 04:10 04:10 04:10 WBC 17.0 H RBC 3.21 L Hgb 8.2 L Hct 25.5 L MCV MCH 26 L MCHC RDW 20.9 H Plt Count Lymph % (Auto) [place] % (Auto) Lymph # [place] # Baso # Seg Neutrophils % Seg Neuts % (Manual) Lymphocytes % (Manual) Monocytes % (Manual) Eosinophils % (Manual) Basophils % (Manual) Nucleated RBC % Seg Neutrophils # Seg Neutrophils # Man Lymphocytes # (Manual) Monocytes # (Manual) Eosinophils # (Manual) Basophils # (Manual) PT INR Fibrinogen dRVVT Confirm Interp Factor V Activity POC ABG pH POC ABG pCO2 POC ABG pO2 ABG pO2 ABG HCO3 ABG Base Excess ABG Hemoglobin Oxyhemoglobin Sodium Potassium Chloride 111.0 H Carbon Dioxide 16 L BUN 129 H Creatinine 3.7 H Glucose 115 H POC Glucose Lactic Acid Calcium 8.2 L Phosphorus Magnesium Direct Bilirubin AST ALT Alkaline Phosphatase Lactate Dehydrogenase Troponin T C-Reactive Protein Total Protein Albumin Prealbumin Triglycerides 243 H Cholesterol LDL Cholesterol Direct HDL Cholesterol Urine pH Urine WBC (Auto) Urine Creatinine Urine Total Protein Fluid Total Protein Vancomycin Trough Rheumatoid Factor Complement C4 Miscellaneous Test Crossmatch 09/20/16 09/20/16 09/20/16 05:40 11:52 16:50 WBC RBC Hgb Hct MCV MCH MCHC RDW Plt Count Lymph % (Auto) [place] % (Auto) Lymph # [place] # Baso # Seg Neutrophils % Seg Neuts % (Manual) Lymphocytes % (Manual) Monocytes % (Manual) Eosinophils % (Manual) Basophils % (Manual) Nucleated RBC % Seg Neutrophils # Seg Neutrophils # Man Lymphocytes # (Manual) Monocytes # (Manual) Eosinophils # (Manual) Basophils # (Manual) PT INR Fibrinogen dRVVT Confirm Interp Factor V Activity POC ABG pH POC ABG pCO2 POC ABG pO2 ABG pO2 ABG HCO3 ABG Base Excess ABG Hemoglobin Oxyhemoglobin Sodium Potassium Chloride Carbon Dioxide BUN Creatinine Glucose POC Glucose 131 H 183 H 236 H Lactic Acid Calcium Phosphorus Magnesium Direct Bilirubin AST ALT Alkaline Phosphatase Lactate Dehydrogenase Troponin T C-Reactive Protein Total Protein Albumin Prealbumin Triglycerides Cholesterol LDL Cholesterol Direct HDL Cholesterol Urine pH Urine WBC (Auto) Urine Creatinine Urine Total Protein Fluid Total Protein Vancomycin Trough Rheumatoid Factor Complement C4 Miscellaneous Test Crossmatch 09/20/16 09/21/16 09/21/16 23:51 03:30 04:44 WBC RBC Hgb Hct MCV MCH MCHC RDW Plt Count Lymph % (Auto) [place] % (Auto) Lymph # [place] # Baso # Seg Neutrophils % Seg Neuts % (Manual) Lymphocytes % (Manual) Monocytes % (Manual) Eosinophils % (Manual) Basophils % (Manual) Nucleated RBC % Seg Neutrophils # Seg Neutrophils # Man Lymphocytes # (Manual) Monocytes # (Manual) Eosinophils # (Manual) Basophils # (Manual) PT INR Fibrinogen dRVVT Confirm Interp Factor V Activity POC ABG pH POC ABG pCO2 POC ABG pO2 ABG pO2 ABG HCO3 ABG Base Excess ABG Hemoglobin Oxyhemoglobin Sodium Potassium Chloride Carbon Dioxide BUN Creatinine Glucose POC Glucose 114 H 141 H Lactic Acid Calcium Phosphorus Magnesium 2.70 H Direct Bilirubin AST ALT Alkaline Phosphatase Lactate Dehydrogenase Troponin T C-Reactive Protein Total Protein Albumin Prealbumin Triglycerides Cholesterol LDL Cholesterol Direct HDL Cholesterol Urine pH Urine WBC (Auto) Urine Creatinine Urine Total Protein Fluid Total Protein Vancomycin Trough Rheumatoid Factor Complement C4 Miscellaneous Test Crossmatch 09/21/16 09/21/16 09/21/16 07:45 07:45 10:01 WBC 13.8 H RBC 2.94 L Hgb 7.5 L Hct 23.5 L MCV MCH 26 L MCHC RDW 21.2 H Plt Count Lymph % (Auto) 6.9 L [place] % (Auto) 9.4 H Lymph # 0.9 L [place] # 1.3 H Baso # Seg Neutrophils % 83.2 H Seg Neuts % (Manual) Lymphocytes % (Manual) Monocytes % (Manual) Eosinophils % (Manual) Basophils % (Manual) Nucleated RBC % Seg Neutrophils # 11.5 H Seg Neutrophils # Man Lymphocytes # (Manual) Monocytes # (Manual) Eosinophils # (Manual) Basophils # (Manual) PT INR Fibrinogen dRVVT Confirm Interp Factor V Activity POC ABG pH 7.308 L POC ABG pCO2 31.9 L POC ABG pO2 148 H ABG pO2 ABG HCO3 ABG Base Excess ABG Hemoglobin Oxyhemoglobin Sodium 147 H Potassium Chloride 114.2 H Carbon Dioxide 15 L BUN 120 H Creatinine 3.9 H Glucose 156 H POC Glucose Lactic Acid Calcium 8.2 L Phosphorus Magnesium Direct Bilirubin AST ALT Alkaline Phosphatase Lactate Dehydrogenase Troponin T C-Reactive Protein Total Protein Albumin Prealbumin Triglycerides Cholesterol LDL Cholesterol Direct HDL Cholesterol Urine pH Urine WBC (Auto) Urine Creatinine Urine Total Protein Fluid Total Protein Vancomycin Trough Rheumatoid Factor Complement C4 Miscellaneous Test Crossmatch 09/21/16 09/21/16 09/21/16 12:00 12:03 13:00 WBC RBC Hgb Hct MCV MCH MCHC RDW Plt Count Lymph % (Auto) [place] % (Auto) Lymph # [place] # Baso # Seg Neutrophils % Seg Neuts % (Manual) Lymphocytes % (Manual) Monocytes % (Manual) Eosinophils % (Manual) Basophils % (Manual) Nucleated RBC % Seg Neutrophils # Seg Neutrophils # Man Lymphocytes # (Manual) Monocytes # (Manual) Eosinophils # (Manual) Basophils # (Manual) PT INR Fibrinogen dRVVT Confirm Interp Factor V Activity POC ABG pH POC ABG pCO2 POC ABG pO2 ABG pO2 ABG HCO3 ABG Base Excess ABG Hemoglobin Oxyhemoglobin Sodium Potassium Chloride Carbon Dioxide BUN Creatinine Glucose POC Glucose 163 H Lactic Acid Calcium Phosphorus Magnesium Direct Bilirubin AST ALT Alkaline Phosphatase Lactate Dehydrogenase Troponin T C-Reactive Protein Total Protein Albumin Prealbumin Triglycerides Cholesterol LDL Cholesterol Direct HDL Cholesterol Urine pH Urine WBC (Auto) Urine Creatinine 54.8 H Urine Total Protein Fluid Total Protein Vancomycin Trough 2.3 L Rheumatoid Factor Complement C4 Miscellaneous Test Crossmatch 09/21/16 09/21/16 09/22/16 16:51 23:17 06:27 WBC RBC Hgb Hct MCV MCH MCHC RDW Plt Count Lymph % (Auto) [place] % (Auto) Lymph # [place] # Baso # Seg Neutrophils % Seg Neuts % (Manual) Lymphocytes % (Manual) Monocytes % (Manual) Eosinophils % (Manual) Basophils % (Manual) Nucleated RBC % Seg Neutrophils # Seg Neutrophils # Man Lymphocytes # (Manual) Monocytes # (Manual) Eosinophils # (Manual) Basophils # (Manual) PT INR Fibrinogen dRVVT Confirm Interp Factor V Activity POC ABG pH POC ABG pCO2 POC ABG pO2 ABG pO2 ABG HCO3 ABG Base Excess ABG Hemoglobin Oxyhemoglobin Sodium Potassium Chloride Carbon Dioxide BUN Creatinine Glucose POC Glucose 206 H 114 H 115 H Lactic Acid Calcium Phosphorus Magnesium Direct Bilirubin AST ALT Alkaline Phosphatase Lactate Dehydrogenase Troponin T C-Reactive Protein Total Protein Albumin Prealbumin Triglycerides Cholesterol LDL Cholesterol Direct HDL Cholesterol Urine pH Urine WBC (Auto) Urine Creatinine Urine Total Protein Fluid Total Protein Vancomycin Trough Rheumatoid Factor Complement C4 Miscellaneous Test Crossmatch 09/22/16 09/22/16 09/22/16 07:50 07:50 12:00 WBC 17.8 H RBC 3.04 L Hgb 8.0 L Hct 24.7 L MCV MCH 26 L MCHC RDW 21.6 H Plt Count Lymph % (Auto) [place] % (Auto) Lymph # [place] # Baso # Seg Neutrophils % Seg Neuts % (Manual) Lymphocytes % (Manual) Monocytes % (Manual) Eosinophils % (Manual) Basophils % (Manual) Nucleated RBC % Seg Neutrophils # Seg Neutrophils # Man Lymphocytes # (Manual) Monocytes # (Manual) Eosinophils # (Manual) Basophils # (Manual) PT INR Fibrinogen dRVVT Confirm Interp Factor V Activity POC ABG pH POC ABG pCO2 POC ABG pO2 ABG pO2 ABG HCO3 ABG Base Excess ABG Hemoglobin Oxyhemoglobin Sodium 150 H Potassium Chloride 118.2 H Carbon Dioxide 14 L BUN 111 H Creatinine 3.7 H Glucose 157 H POC Glucose 183 H Lactic Acid Calcium Phosphorus Magnesium Direct Bilirubin AST ALT Alkaline Phosphatase Lactate Dehydrogenase Troponin T C-Reactive Protein Total Protein Albumin Prealbumin Triglycerides Cholesterol LDL Cholesterol Direct HDL Cholesterol Urine pH Urine WBC (Auto) Urine Creatinine Urine Total Protein Fluid Total Protein Vancomycin Trough Rheumatoid Factor Complement C4 Miscellaneous Test Crossmatch 09/22/16 09/22/16 09/23/16 17:29 23:10 05:00 WBC 19.2 H RBC 3.13 L Hgb 8.0 L Hct 25.2 L MCV MCH 26 L MCHC RDW 22.1 H Plt Count Lymph % (Auto) [place] % (Auto) Lymph # [place] # Baso # Seg Neutrophils % Seg Neuts % (Manual) 92.0 H Lymphocytes % (Manual) 3.0 L Monocytes % (Manual) Eosinophils % (Manual) Basophils % (Manual) Nucleated RBC % Seg Neutrophils # Seg Neutrophils # Man 17.7 H Lymphocytes # (Manual) 0.6 L Monocytes # (Manual) Eosinophils # (Manual) Basophils # (Manual) PT INR Fibrinogen dRVVT Confirm Interp Factor V Activity POC ABG pH POC ABG pCO2 POC ABG pO2 ABG pO2 ABG HCO3 ABG Base Excess ABG Hemoglobin Oxyhemoglobin Sodium Potassium Chloride Carbon Dioxide BUN Creatinine Glucose POC Glucose 197 H 169 H Lactic Acid Calcium Phosphorus Magnesium Direct Bilirubin AST ALT Alkaline Phosphatase Lactate Dehydrogenase Troponin T C-Reactive Protein Total Protein Albumin Prealbumin Triglycerides Cholesterol LDL Cholesterol Direct HDL Cholesterol Urine pH Urine WBC (Auto) Urine Creatinine Urine Total Protein Fluid Total Protein Vancomycin Trough Rheumatoid Factor Complement C4 Miscellaneous Test Crossmatch 09/23/16 09/23/16 09/23/16 05:00 05:00 05:10 WBC RBC Hgb Hct MCV MCH MCHC RDW Plt Count Lymph % (Auto) [place] % (Auto) Lymph # [place] # Baso # Seg Neutrophils % Seg Neuts % (Manual) Lymphocytes % (Manual) Monocytes % (Manual) Eosinophils % (Manual) Basophils % (Manual) Nucleated RBC % Seg Neutrophils # Seg Neutrophils # Man Lymphocytes # (Manual) Monocytes # (Manual) Eosinophils # (Manual) Basophils # (Manual) PT INR Fibrinogen dRVVT Confirm Interp Factor V Activity POC ABG pH POC ABG pCO2 POC ABG pO2 ABG pO2 ABG HCO3 ABG Base Excess ABG Hemoglobin Oxyhemoglobin Sodium 147 H Potassium 3.2 L Chloride 115.7 H Carbon Dioxide 13 L BUN 111 H Creatinine 3.8 H Glucose 194 H POC Glucose 188 H Lactic Acid Calcium 7.3 L D Phosphorus Magnesium Direct Bilirubin AST ALT Alkaline Phosphatase Lactate Dehydrogenase Troponin T C-Reactive Protein 3.20 H Total Protein Albumin Prealbumin Triglycerides Cholesterol LDL Cholesterol Direct HDL Cholesterol Urine pH Urine WBC (Auto) Urine Creatinine Urine Total Protein Fluid Total Protein Vancomycin Trough Rheumatoid Factor Complement C4 Miscellaneous Test Crossmatch 09/23/16 09/23/16 09/23/16 11:37 12:29 18:01 WBC RBC Hgb Hct MCV MCH MCHC RDW Plt Count Lymph % (Auto) [place] % (Auto) Lymph # [place] # Baso # Seg Neutrophils % Seg Neuts % (Manual) Lymphocytes % (Manual) Monocytes % (Manual) Eosinophils % (Manual) Basophils % (Manual) Nucleated RBC % Seg Neutrophils # Seg Neutrophils # Man Lymphocytes # (Manual) Monocytes # (Manual) Eosinophils # (Manual) Basophils # (Manual) PT INR Fibrinogen dRVVT Confirm Interp Factor V Activity POC ABG pH POC ABG pCO2 18.9 L POC ABG pO2 143 H ABG pO2 ABG HCO3 ABG Base Excess ABG Hemoglobin Oxyhemoglobin Sodium Potassium Chloride Carbon Dioxide BUN Creatinine Glucose POC Glucose 153 H 108 H Lactic Acid Calcium Phosphorus Magnesium Direct Bilirubin AST ALT Alkaline Phosphatase Lactate Dehydrogenase Troponin T C-Reactive Protein Total Protein Albumin Prealbumin Triglycerides Cholesterol LDL Cholesterol Direct HDL Cholesterol Urine pH Urine WBC (Auto) Urine Creatinine Urine Total Protein Fluid Total Protein Vancomycin Trough Rheumatoid Factor Complement C4 Miscellaneous Test Crossmatch 09/23/16 09/23/16 09/24/16 21:19 23:43 05:16 WBC RBC Hgb Hct MCV MCH MCHC RDW Plt Count Lymph % (Auto) [place] % (Auto) Lymph # [place] # Baso # Seg Neutrophils % Seg Neuts % (Manual) Lymphocytes % (Manual) Monocytes % (Manual) Eosinophils % (Manual) Basophils % (Manual) Nucleated RBC % Seg Neutrophils # Seg Neutrophils # Man Lymphocytes # (Manual) Monocytes # (Manual) Eosinophils # (Manual) Basophils # (Manual) PT INR Fibrinogen dRVVT Confirm Interp Factor V Activity POC ABG pH POC ABG pCO2 17.3 L POC ABG pO2 112 H ABG pO2 ABG HCO3 ABG Base Excess ABG Hemoglobin Oxyhemoglobin Sodium Potassium Chloride Carbon Dioxide BUN Creatinine Glucose POC Glucose 143 H 164 H Lactic Acid Calcium Phosphorus Magnesium Direct Bilirubin AST ALT Alkaline Phosphatase Lactate Dehydrogenase Troponin T C-Reactive Protein Total Protein Albumin Prealbumin Triglycerides Cholesterol LDL Cholesterol Direct HDL Cholesterol Urine pH Urine WBC (Auto) Urine Creatinine Urine Total Protein Fluid Total Protein Vancomycin Trough Rheumatoid Factor Complement C4 Miscellaneous Test Crossmatch 09/24/16 09/24/16 09/24/16 05:21 11:58 17:06 WBC RBC Hgb Hct MCV MCH MCHC RDW Plt Count Lymph % (Auto) [place] % (Auto) Lymph # [place] # Baso # Seg Neutrophils % Seg Neuts % (Manual) Lymphocytes % (Manual) Monocytes % (Manual) Eosinophils % (Manual) Basophils % (Manual) Nucleated RBC % Seg Neutrophils # Seg Neutrophils # Man Lymphocytes # (Manual) Monocytes # (Manual) Eosinophils # (Manual) Basophils # (Manual) PT INR Fibrinogen dRVVT Confirm Interp Factor V Activity POC ABG pH POC ABG pCO2 POC ABG pO2 ABG pO2 ABG HCO3 ABG Base Excess ABG Hemoglobin Oxyhemoglobin Sodium Potassium Chloride Carbon Dioxide 10 L BUN 103 H Creatinine 4.3 H Glucose 163 H POC Glucose 173 H 167 H Lactic Acid Calcium 6.5 L Phosphorus Magnesium Direct Bilirubin AST ALT Alkaline Phosphatase Lactate Dehydrogenase Troponin T C-Reactive Protein Total Protein Albumin Prealbumin Triglycerides Cholesterol LDL Cholesterol Direct HDL Cholesterol Urine pH Urine WBC (Auto) Urine Creatinine Urine Total Protein Fluid Total Protein Vancomycin Trough Rheumatoid Factor Complement C4 Miscellaneous Test Crossmatch 09/24/16 09/24/16 09/24/16 20:15 21:02 23:48 WBC RBC Hgb Hct MCV MCH MCHC RDW Plt Count Lymph % (Auto) [place] % (Auto) Lymph # [place] # Baso # Seg Neutrophils % Seg Neuts % (Manual) Lymphocytes % (Manual) Monocytes % (Manual) Eosinophils % (Manual) Basophils % (Manual) Nucleated RBC % Seg Neutrophils # Seg Neutrophils # Man Lymphocytes # (Manual) Monocytes # (Manual) Eosinophils # (Manual) Basophils # (Manual) PT INR Fibrinogen dRVVT Confirm Interp Factor V Activity POC ABG pH 7.288 L POC ABG pCO2 30.2 L 21.5 L POC ABG pO2 32 L 39 L ABG pO2 ABG HCO3 ABG Base Excess ABG Hemoglobin Oxyhemoglobin Sodium Potassium Chloride Carbon Dioxide BUN Creatinine Glucose POC Glucose 109 H Lactic Acid Calcium Phosphorus Magnesium Direct Bilirubin AST ALT Alkaline Phosphatase Lactate Dehydrogenase Troponin T C-Reactive Protein Total Protein Albumin Prealbumin Triglycerides Cholesterol LDL Cholesterol Direct HDL Cholesterol Urine pH Urine WBC (Auto) Urine Creatinine Urine Total Protein Fluid Total Protein Vancomycin Trough Rheumatoid Factor Complement C4 Miscellaneous Test Crossmatch 09/25/16 09/25/16 09/25/16 04:20 04:20 04:20 WBC RBC 2.58 L Hgb 7.0 L Hct 21.0 L MCV MCH 27 L MCHC RDW 23.8 H Plt Count Lymph % (Auto) [place] % (Auto) Lymph # [place] # Baso # Seg Neutrophils % Seg Neuts % (Manual) Lymphocytes % (Manual) 12.0 L Monocytes % (Manual) Eosinophils % (Manual) 7.0 H Basophils % (Manual) 2.0 H Nucleated RBC % Seg Neutrophils # Seg Neutrophils # Man Lymphocytes # (Manual) 0.9 L Monocytes # (Manual) Eosinophils # (Manual) 0.5 H Basophils # (Manual) PT INR Fibrinogen dRVVT Confirm Interp Factor V Activity POC ABG pH POC ABG pCO2 POC ABG pO2 ABG pO2 ABG HCO3 ABG Base Excess ABG Hemoglobin Oxyhemoglobin Sodium Potassium Chloride Carbon Dioxide 15 L BUN 72 H Creatinine 3.8 H Glucose POC Glucose Lactic Acid Calcium 6.0 L Phosphorus 4.60 H Magnesium 1.60 L Direct Bilirubin AST ALT Alkaline Phosphatase Lactate Dehydrogenase Troponin T C-Reactive Protein Total Protein Albumin Prealbumin Triglycerides Cholesterol LDL Cholesterol Direct HDL Cholesterol Urine pH Urine WBC (Auto) Urine Creatinine Urine Total Protein Fluid Total Protein Vancomycin Trough Rheumatoid Factor Complement C4 Miscellaneous Test Crossmatch 09/25/16 09/25/16 09/25/16 04:57 08:02 10:30 WBC RBC Hgb Hct MCV MCH MCHC RDW Plt Count Lymph % (Auto) [place] % (Auto) Lymph # [place] # Baso # Seg Neutrophils % Seg Neuts % (Manual) Lymphocytes % (Manual) Monocytes % (Manual) Eosinophils % (Manual) Basophils % (Manual) Nucleated RBC % Seg Neutrophils # Seg Neutrophils # Man Lymphocytes # (Manual) Monocytes # (Manual) Eosinophils # (Manual) Basophils # (Manual) PT INR Fibrinogen dRVVT Confirm Interp Factor V Activity POC ABG pH POC ABG pCO2 24.7 L POC ABG pO2 152 H ABG pO2 ABG HCO3 ABG Base Excess ABG Hemoglobin Oxyhemoglobin Sodium Potassium Chloride Carbon Dioxide BUN Creatinine Glucose POC Glucose 113 H Lactic Acid Calcium Phosphorus Magnesium Direct Bilirubin AST ALT Alkaline Phosphatase Lactate Dehydrogenase Troponin T C-Reactive Protein Total Protein Albumin Prealbumin Triglycerides Cholesterol LDL Cholesterol Direct HDL Cholesterol Urine pH Urine WBC (Auto) Urine Creatinine Urine Total Protein Fluid Total Protein Vancomycin Trough Rheumatoid Factor Complement C4 Miscellaneous Test Crossmatch See Detail 09/25/16 09/25/16 09/25/16 12:05 17:44 23:47 WBC RBC Hgb Hct MCV MCH MCHC RDW Plt Count Lymph % (Auto) Coke % (Auto) Lymph # Coke # Baso # Seg Neutrophils % Seg Neuts % (Manual) Lymphocytes % (Manual) Monocytes % (Manual) Eosinophils % (Manual) Basophils % (Manual) Nucleated RBC % Seg Neutrophils # Seg Neutrophils # Man Lymphocytes # (Manual) Monocytes # (Manual) Eosinophils # (Manual) Basophils # (Manual) PT INR Fibrinogen dRVVT Confirm Interp Factor V Activity POC ABG pH POC ABG pCO2 POC ABG pO2 ABG pO2 ABG HCO3 ABG Base Excess ABG Hemoglobin Oxyhemoglobin Sodium Potassium Chloride Carbon Dioxide BUN Creatinine Glucose POC Glucose 117 H 119 H 150 H Lactic Acid Calcium Phosphorus Magnesium Direct Bilirubin AST ALT Alkaline Phosphatase Lactate Dehydrogenase Troponin T C-Reactive Protein Total Protein Albumin Prealbumin Triglycerides Cholesterol LDL Cholesterol Direct HDL Cholesterol Urine pH Urine WBC (Auto) Urine Creatinine Urine Total Protein Fluid Total Protein Vancomycin Trough Rheumatoid Factor Complement C4 Miscellaneous Test Crossmatch 09/26/16 09/26/16 09/26/16 04:25 04:25 04:25 WBC RBC 2.65 L Hgb 7.4 L Hct 21.6 L MCV MCH MCHC RDW 22.5 H Plt Count Lymph % (Auto) Coke % (Auto) Lymph # [place] # Baso # Seg Neutrophils % Seg Neuts % (Manual) Lymphocytes % (Manual) 6.0 L Monocytes % (Manual) Eosinophils % (Manual) 11.0 H Basophils % (Manual) Nucleated RBC % Seg Neutrophils # Seg Neutrophils # Man Lymphocytes # (Manual) 0.4 L Monocytes # (Manual) Eosinophils # (Manual) 0.6 H Basophils # (Manual) PT INR Fibrinogen dRVVT Confirm Interp Factor V Activity POC ABG pH POC ABG pCO2 POC ABG pO2 ABG pO2 ABG HCO3 ABG Base Excess ABG Hemoglobin Oxyhemoglobin Sodium Potassium Chloride 97.0 L Carbon Dioxide 19 L BUN 43 H Creatinine 2.6 H Glucose 130 H POC Glucose Lactic Acid 4.40 H* Calcium 6.7 L Phosphorus Magnesium Direct Bilirubin AST ALT Alkaline Phosphatase Lactate Dehydrogenase Troponin T C-Reactive Protein Total Protein Albumin Prealbumin Triglycerides Cholesterol LDL Cholesterol Direct HDL Cholesterol Urine pH Urine WBC (Auto) Urine Creatinine Urine Total Protein Fluid Total Protein Vancomycin Trough Rheumatoid Factor Complement C4 Miscellaneous Test Crossmatch 09/26/16 09/26/16 09/26/16 05:20 11:44 12:12 WBC RBC Hgb Hct MCV MCH MCHC RDW Plt Count Lymph % (Auto) [place]ke % (Auto) Lymph # [place] # Baso # Seg Neutrophils % Seg Neuts % (Manual) Lymphocytes % (Manual) Monocytes % (Manual) Eosinophils % (Manual) Basophils % (Manual) Nucleated RBC % Seg Neutrophils # Seg Neutrophils # Man Lymphocytes # (Manual) Monocytes # (Manual) Eosinophils # (Manual) Basophils # (Manual) PT INR Fibrinogen dRVVT Confirm Interp Factor V Activity POC ABG pH POC ABG pCO2 27.0 L POC ABG pO2 69 L ABG pO2 ABG HCO3 ABG Base Excess ABG Hemoglobin Oxyhemoglobin Sodium Potassium Chloride Carbon Dioxide BUN Creatinine Glucose POC Glucose 121 H 128 H Lactic Acid Calcium Phosphorus Magnesium Direct Bilirubin AST ALT Alkaline Phosphatase Lactate Dehydrogenase Troponin T C-Reactive Protein Total Protein Albumin Prealbumin Triglycerides Cholesterol LDL Cholesterol Direct HDL Cholesterol Urine pH Urine WBC (Auto) Urine Creatinine Urine Total Protein Fluid Total Protein Vancomycin Trough Rheumatoid Factor Complement C4 Miscellaneous Test Crossmatch 09/26/16 09/26/16 09/27/16 18:31 23:40 08:20 WBC RBC Hgb Hct MCV MCH MCHC RDW Plt Count Lymph % (Auto) [place] % (Auto) Lymph # [place] # Baso # Seg Neutrophils % Seg Neuts % (Manual) Lymphocytes % (Manual) Monocytes % (Manual) Eosinophils % (Manual) Basophils % (Manual) Nucleated RBC % Seg Neutrophils # Seg Neutrophils # Man Lymphocytes # (Manual) Monocytes # (Manual) Eosinophils # (Manual) Basophils # (Manual) PT INR Fibrinogen dRVVT Confirm Interp Factor V Activity POC ABG pH POC ABG pCO2 POC ABG pO2 ABG pO2 ABG HCO3 ABG Base Excess ABG Hemoglobin Oxyhemoglobin Sodium Potassium Chloride Carbon Dioxide BUN Creatinine Glucose POC Glucose 120 H 133 H Lactic Acid 4.10 H* Calcium Phosphorus Magnesium Direct Bilirubin AST ALT Alkaline Phosphatase Lactate Dehydrogenase Troponin T C-Reactive Protein Total Protein Albumin Prealbumin Triglycerides Cholesterol LDL Cholesterol Direct HDL Cholesterol Urine pH Urine WBC (Auto) Urine Creatinine Urine Total Protein Fluid Total Protein Vancomycin Trough Rheumatoid Factor Complement C4 Miscellaneous Test Crossmatch 09/27/16 09/27/16 09/27/16 11:23 15:00 18:15 WBC RBC Hgb Hct MCV MCH MCHC RDW Plt Count Lymph % (Auto) [place] % (Auto) Lymph # [place] # Baso # Seg Neutrophils % Seg Neuts % (Manual) Lymphocytes % (Manual) Monocytes % (Manual) Eosinophils % (Manual) Basophils % (Manual) Nucleated RBC % Seg Neutrophils # Seg Neutrophils # Man Lymphocytes # (Manual) Monocytes # (Manual) Eosinophils # (Manual) Basophils # (Manual) PT INR Fibrinogen dRVVT Confirm Interp Factor V Activity POC ABG pH 7.459 H POC ABG pCO2 27.1 L POC ABG pO2 140 H ABG pO2 ABG HCO3 ABG Base Excess ABG Hemoglobin Oxyhemoglobin Sodium Potassium Chloride Carbon Dioxide BUN Creatinine Glucose POC Glucose 114 H 127 H Lactic Acid Calcium Phosphorus Magnesium Direct Bilirubin AST ALT Alkaline Phosphatase Lactate Dehydrogenase Troponin T C-Reactive Protein Total Protein Albumin Prealbumin Triglycerides Cholesterol LDL Cholesterol Direct HDL Cholesterol Urine pH Urine WBC (Auto) Urine Creatinine Urine Total Protein Fluid Total Protein Vancomycin Trough Rheumatoid Factor Complement C4 Miscellaneous Test Crossmatch 09/27/16 09/27/16 09/28/16 Unknown Unknown 03:45 WBC RBC 2.49 L Hgb 6.8 L Hct 20.7 L MCV MCH 27 L MCHC RDW 22.1 H Plt Count Lymph % (Auto) [place]ke % (Auto) Lymph # [place] # Baso # Seg Neutrophils % Seg Neuts % (Manual) 32.0 L Lymphocytes % (Manual) 12.0 L Monocytes % (Manual) 11.0 H Eosinophils % (Manual) 10.0 H Basophils % (Manual) Nucleated RBC % Seg Neutrophils # Seg Neutrophils # Man Lymphocytes # (Manual) 1.0 L Monocytes # (Manual) 0.9 H Eosinophils # (Manual) 0.8 H Basophils # (Manual) PT INR Fibrinogen dRVVT Confirm Interp Factor V Activity POC ABG pH POC ABG pCO2 POC ABG pO2 ABG pO2 ABG HCO3 ABG Base Excess ABG Hemoglobin Oxyhemoglobin Sodium 135 L 135 L Potassium 3.5 L Chloride 93.6 L 94.4 L Carbon Dioxide 17 L 21 L BUN 45 H 28 H Creatinine 3.3 H 2.5 H Glucose 106 H POC Glucose Lactic Acid Calcium 7.3 L 7.1 L Phosphorus Magnesium Direct Bilirubin AST ALT Alkaline Phosphatase Lactate Dehydrogenase Troponin T C-Reactive Protein Total Protein Albumin Prealbumin Triglycerides Cholesterol LDL Cholesterol Direct HDL Cholesterol Urine pH Urine WBC (Auto) Urine Creatinine Urine Total Protein Fluid Total Protein Vancomycin Trough Rheumatoid Factor Complement C4 Miscellaneous Test Crossmatch 09/28/16 09/28/16 09/28/16 03:45 07:25 11:58 WBC 13.3 H RBC 3.01 L Hgb 8.4 L Hct 25.0 L MCV MCH MCHC RDW 20.5 H Plt Count 128 L Lymph % (Auto) [place]ke % (Auto) Lymph # [place] # Baso # Seg Neutrophils % Seg Neuts % (Manual) Lymphocytes % (Manual) 7.0 L Monocytes % (Manual) Eosinophils % (Manual) 6.0 H Basophils % (Manual) Nucleated RBC % Seg Neutrophils # Seg Neutrophils # Man Lymphocytes # (Manual) 0.9 L Monocytes # (Manual) Eosinophils # (Manual) 0.8 H Basophils # (Manual) PT INR Fibrinogen dRVVT Confirm Interp Factor V Activity POC ABG pH POC ABG pCO2 POC ABG pO2 ABG pO2 ABG HCO3 ABG Base Excess ABG Hemoglobin Oxyhemoglobin Sodium Potassium Chloride Carbon Dioxide BUN Creatinine Glucose POC Glucose 121 H Lactic Acid 4.50 H* Calcium Phosphorus Magnesium Direct Bilirubin AST ALT Alkaline Phosphatase Lactate Dehydrogenase Troponin T C-Reactive Protein Total Protein Albumin Prealbumin Triglycerides Cholesterol LDL Cholesterol Direct HDL Cholesterol Urine pH Urine WBC (Auto) Urine Creatinine Urine Total Protein Fluid Total Protein Vancomycin Trough Rheumatoid Factor Complement C4 Miscellaneous Test Crossmatch 09/29/16 09/29/16 09/29/16 06:45 06:45 06:45 WBC 14.9 H RBC 2.74 L Hgb 7.6 L Hct 23.2 L MCV MCH MCHC RDW 20.5 H Plt Count 81 L Lymph % (Auto) [place]ke % (Auto) Lymph # [place] # Baso # Seg Neutrophils % Seg Neuts % (Manual) 81.0 H Lymphocytes % (Manual) 4.0 L Monocytes % (Manual) Eosinophils % (Manual) Basophils % (Manual) Nucleated RBC % Seg Neutrophils # Seg Neutrophils # Man 12.1 H Lymphocytes # (Manual) 0.6 L Monocytes # (Manual) Eosinophils # (Manual) Basophils # (Manual) PT INR Fibrinogen dRVVT Confirm Interp Factor V Activity POC ABG pH POC ABG pCO2 POC ABG pO2 ABG pO2 ABG HCO3 ABG Base Excess ABG Hemoglobin Oxyhemoglobin Sodium 133 L Potassium 3.4 L Chloride 92.5 L Carbon Dioxide 21 L BUN 33 H Creatinine 3.0 H Glucose POC Glucose Lactic Acid Calcium 6.6 L Phosphorus Magnesium 1.40 L Direct Bilirubin 0.9 H AST ALT Alkaline Phosphatase Lactate Dehydrogenase Troponin T C-Reactive Protein Total Protein 4.3 L Albumin 1.3 L Prealbumin Triglycerides Cholesterol LDL Cholesterol Direct HDL Cholesterol Urine pH Urine WBC (Auto) Urine Creatinine Urine Total Protein Fluid Total Protein Vancomycin Trough Rheumatoid Factor Complement C4 Miscellaneous Test Crossmatch 09/29/16 09/29/16 09/30/16 17:52 20:12 00:07 WBC RBC Hgb Hct MCV MCH MCHC RDW Plt Count Lymph % (Auto) [place] % (Auto) Lymph # [place] # Baso # Seg Neutrophils % Seg Neuts % (Manual) Lymphocytes % (Manual) Monocytes % (Manual) Eosinophils % (Manual) Basophils % (Manual) Nucleated RBC % Seg Neutrophils # Seg Neutrophils # Man Lymphocytes # (Manual) Monocytes # (Manual) Eosinophils # (Manual) Basophils # (Manual) PT INR Fibrinogen dRVVT Confirm Interp Factor V Activity POC ABG pH POC ABG pCO2 POC ABG pO2 ABG pO2 ABG HCO3 ABG Base Excess ABG Hemoglobin Oxyhemoglobin Sodium Potassium Chloride Carbon Dioxide BUN Creatinine Glucose POC Glucose 50 L 51 L Lactic Acid Calcium Phosphorus Magnesium Direct Bilirubin AST ALT Alkaline Phosphatase Lactate Dehydrogenase Troponin T 0.204 H* C-Reactive Protein Total Protein Albumin Prealbumin Triglycerides Cholesterol 31 L LDL Cholesterol Direct 4 L HDL Cholesterol 3 L Urine pH Urine WBC (Auto) Urine Creatinine Urine Total Protein Fluid Total Protein Vancomycin Trough Rheumatoid Factor Complement C4 Miscellaneous Test Crossmatch 09/30/16 09/30/16 09/30/16 01:30 05:15 06:10 WBC RBC Hgb Hct MCV MCH MCHC RDW Plt Count Lymph % (Auto) [place] % (Auto) Lymph # [place] # Baso # Seg Neutrophils % Seg Neuts % (Manual) Lymphocytes % (Manual) Monocytes % (Manual) Eosinophils % (Manual) Basophils % (Manual) Nucleated RBC % Seg Neutrophils # Seg Neutrophils # Man Lymphocytes # (Manual) Monocytes # (Manual) Eosinophils # (Manual) Basophils # (Manual) PT INR Fibrinogen dRVVT Confirm Interp Factor V Activity POC ABG pH POC ABG pCO2 POC ABG pO2 ABG pO2 ABG HCO3 ABG Base Excess ABG Hemoglobin Oxyhemoglobin Sodium 133 L Potassium 3.2 L Chloride 93.2 L Carbon Dioxide 19 L BUN 36 H Creatinine 3.2 H Glucose 104 H POC Glucose 167 H 146 H Lactic Acid Calcium 6.4 L Phosphorus Magnesium 1.60 L Direct Bilirubin AST ALT Alkaline Phosphatase Lactate Dehydrogenase Troponin T C-Reactive Protein Total Protein Albumin Prealbumin Triglycerides Cholesterol LDL Cholesterol Direct HDL Cholesterol Urine pH Urine WBC (Auto) Urine Creatinine Urine Total Protein Fluid Total Protein Vancomycin Trough Rheumatoid Factor Complement C4 Miscellaneous Test Crossmatch 09/30/16 09/30/16 09/30/16 11:26 13:39 18:38 WBC RBC Hgb Hct MCV MCH MCHC RDW Plt Count Lymph % (Auto) [place]ke % (Auto) Lymph # [place] # Baso # Seg Neutrophils % Seg Neuts % (Manual) Lymphocytes % (Manual) Monocytes % (Manual) Eosinophils % (Manual) Basophils % (Manual) Nucleated RBC % Seg Neutrophils # Seg Neutrophils # Man Lymphocytes # (Manual) Monocytes # (Manual) Eosinophils # (Manual) Basophils # (Manual) PT INR Fibrinogen dRVVT Confirm Interp Factor V Activity POC ABG pH 7.479 H POC ABG pCO2 29.8 L POC ABG pO2 117 H ABG pO2 ABG HCO3 ABG Base Excess ABG Hemoglobin Oxyhemoglobin Sodium Potassium Chloride Carbon Dioxide BUN Creatinine Glucose POC Glucose 140 H 122 H Lactic Acid Calcium Phosphorus Magnesium Direct Bilirubin AST ALT Alkaline Phosphatase Lactate Dehydrogenase Troponin T C-Reactive Protein Total Protein Albumin Prealbumin Triglycerides Cholesterol LDL Cholesterol Direct HDL Cholesterol Urine pH Urine WBC (Auto) Urine Creatinine Urine Total Protein Fluid Total Protein Vancomycin Trough Rheumatoid Factor Complement C4 Miscellaneous Test Crossmatch 10/01/16 10/01/16 10/01/16 06:00 06:00 12:37 WBC 12.6 H RBC 2.75 L Hgb 7.3 L Hct 23.3 L MCV MCH 27 L MCHC RDW 20.6 H Plt Count 72 L Lymph % (Auto) [place]ke % (Auto) Lymph # [place] # Baso # Seg Neutrophils % Seg Neuts % (Manual) 31.0 L Lymphocytes % (Manual) 8.0 L Monocytes % (Manual) Eosinophils % (Manual) Basophils % (Manual) Nucleated RBC % 3.0 H Seg Neutrophils # Seg Neutrophils # Man Lymphocytes # (Manual) 1.0 L Monocytes # (Manual) Eosinophils # (Manual) Basophils # (Manual) PT INR Fibrinogen dRVVT Confirm Interp Factor V Activity POC ABG pH POC ABG pCO2 POC ABG pO2 ABG pO2 ABG HCO3 ABG Base Excess ABG Hemoglobin Oxyhemoglobin Sodium 127 L Potassium Chloride 86.8 L Carbon Dioxide 20 L BUN 42 H Creatinine 3.5 H Glucose POC Glucose 65 L Lactic Acid Calcium 7.0 L Phosphorus Magnesium Direct Bilirubin AST ALT Alkaline Phosphatase Lactate Dehydrogenase Troponin T C-Reactive Protein Total Protein Albumin Prealbumin Triglycerides Cholesterol LDL Cholesterol Direct HDL Cholesterol Urine pH Urine WBC (Auto) Urine Creatinine Urine Total Protein Fluid Total Protein Vancomycin Trough Rheumatoid Factor Complement C4 Miscellaneous Test Crossmatch 10/01/16 10/01/16 10/02/16 17:39 23:32 00:59 WBC RBC Hgb Hct MCV MCH MCHC RDW Plt Count Lymph % (Auto) [place] % (Auto) Lymph # [place] # Baso # Seg Neutrophils % Seg Neuts % (Manual) Lymphocytes % (Manual) Monocytes % (Manual) Eosinophils % (Manual) Basophils % (Manual) Nucleated RBC % Seg Neutrophils # Seg Neutrophils # Man Lymphocytes # (Manual) Monocytes # (Manual) Eosinophils # (Manual) Basophils # (Manual) PT INR Fibrinogen dRVVT Confirm Interp Factor V Activity POC ABG pH POC ABG pCO2 POC ABG pO2 ABG pO2 ABG HCO3 ABG Base Excess ABG Hemoglobin Oxyhemoglobin Sodium Potassium Chloride Carbon Dioxide BUN Creatinine Glucose POC Glucose 107 H 52 L 145 H Lactic Acid Calcium Phosphorus Magnesium Direct Bilirubin AST ALT Alkaline Phosphatase Lactate Dehydrogenase Troponin T C-Reactive Protein Total Protein Albumin Prealbumin Triglycerides Cholesterol LDL Cholesterol Direct HDL Cholesterol Urine pH Urine WBC (Auto) Urine Creatinine Urine Total Protein Fluid Total Protein Vancomycin Trough Rheumatoid Factor Complement C4 Miscellaneous Test Crossmatch 10/02/16 10/02/16 10/02/16 10:30 10:50 10:50 WBC 14.7 H RBC 2.76 L Hgb 7.4 L Hct 23.6 L MCV MCH 27 L MCHC RDW 20.2 H Plt Count 79 L Lymph % (Auto) [place]ke % (Auto) Lymph # [place] # Baso # Seg Neutrophils % Seg Neuts % (Manual) 86.0 H Lymphocytes % (Manual) 6.0 L Monocytes % (Manual) Eosinophils % (Manual) Basophils % (Manual) Nucleated RBC % Seg Neutrophils # Seg Neutrophils # Man 12.6 H Lymphocytes # (Manual) 0.9 L Monocytes # (Manual) Eosinophils # (Manual) Basophils # (Manual) PT INR Fibrinogen dRVVT Confirm Interp Factor V Activity POC ABG pH 7.486 H POC ABG pCO2 30.1 L POC ABG pO2 108 H ABG pO2 ABG HCO3 ABG Base Excess ABG Hemoglobin Oxyhemoglobin Sodium 131 L Potassium 3.4 L Chloride 89.9 L Carbon Dioxide BUN 26 H Creatinine 2.6 H Glucose POC Glucose Lactic Acid Calcium 7.0 L Phosphorus Magnesium Direct Bilirubin AST ALT Alkaline Phosphatase Lactate Dehydrogenase Troponin T C-Reactive Protein Total Protein Albumin Prealbumin Triglycerides Cholesterol LDL Cholesterol Direct HDL Cholesterol Urine pH Urine WBC (Auto) Urine Creatinine Urine Total Protein Fluid Total Protein Vancomycin Trough Rheumatoid Factor Complement C4 Miscellaneous Test Crossmatch 10/02/16 10/03/16 10/03/16 23:45 00:45 05:10 WBC 12.9 H RBC 2.77 L Hgb 7.6 L Hct 23.7 L MCV MCH 27 L MCHC RDW 19.7 H Plt Count 89 L Lymph % (Auto) [place]ke % (Auto) Lymph # [place] # Baso # Seg Neutrophils % Seg Neuts % (Manual) Lymphocytes % (Manual) 8.0 L Monocytes % (Manual) Eosinophils % (Manual) Basophils % (Manual) Nucleated RBC % Seg Neutrophils # 11.9 H Seg Neutrophils # Man Lymphocytes # (Manual) 1.0 L Monocytes # (Manual) Eosinophils # (Manual) Basophils # (Manual) PT INR Fibrinogen dRVVT Confirm Interp Factor V Activity POC ABG pH POC ABG pCO2 POC ABG pO2 ABG pO2 ABG HCO3 ABG Base Excess ABG Hemoglobin Oxyhemoglobin Sodium Potassium Chloride Carbon Dioxide BUN Creatinine Glucose POC Glucose 55 L 199 H Lactic Acid Calcium Phosphorus Magnesium Direct Bilirubin AST ALT Alkaline Phosphatase Lactate Dehydrogenase Troponin T C-Reactive Protein Total Protein Albumin Prealbumin Triglycerides Cholesterol LDL Cholesterol Direct HDL Cholesterol Urine pH Urine WBC (Auto) Urine Creatinine Urine Total Protein Fluid Total Protein Vancomycin Trough Rheumatoid Factor Complement C4 Miscellaneous Test Crossmatch 10/03/16 10/03/16 10/03/16 05:10 12:14 13:18 WBC RBC Hgb Hct MCV MCH MCHC RDW Plt Count Lymph % (Auto) [place]ke % (Auto) Lymph # [place] # Baso # Seg Neutrophils % Seg Neuts % (Manual) Lymphocytes % (Manual) Monocytes % (Manual) Eosinophils % (Manual) Basophils % (Manual) Nucleated RBC % Seg Neutrophils # Seg Neutrophils # Man Lymphocytes # (Manual) Monocytes # (Manual) Eosinophils # (Manual) Basophils # (Manual) PT INR Fibrinogen dRVVT Confirm Interp Factor V Activity POC ABG pH POC ABG pCO2 POC ABG pO2 ABG pO2 ABG HCO3 ABG Base Excess ABG Hemoglobin Oxyhemoglobin Sodium 129 L Potassium 3.3 L Chloride 88.8 L Carbon Dioxide 20 L BUN 29 H Creatinine 2.8 H Glucose POC Glucose 68 L 127 H Lactic Acid Calcium 7.2 L Phosphorus Magnesium Direct Bilirubin AST ALT Alkaline Phosphatase Lactate Dehydrogenase Troponin T C-Reactive Protein Total Protein Albumin Prealbumin Triglycerides Cholesterol LDL Cholesterol Direct HDL Cholesterol Urine pH Urine WBC (Auto) Urine Creatinine Urine Total Protein Fluid Total Protein Vancomycin Trough Rheumatoid Factor Complement C4 Miscellaneous Test Crossmatch 10/03/16 10/03/16 10/03/16 14:42 18:21 19:09 WBC RBC Hgb Hct MCV MCH MCHC RDW Plt Count Lymph % (Auto) [place] % (Auto) Lymph # [place] # Baso # Seg Neutrophils % Seg Neuts % (Manual) Lymphocytes % (Manual) Monocytes % (Manual) Eosinophils % (Manual) Basophils % (Manual) Nucleated RBC % Seg Neutrophils # Seg Neutrophils # Man Lymphocytes # (Manual) Monocytes # (Manual) Eosinophils # (Manual) Basophils # (Manual) PT INR Fibrinogen dRVVT Confirm Interp Factor V Activity POC ABG pH 7.499 H POC ABG pCO2 28.4 L POC ABG pO2 44 L ABG pO2 ABG HCO3 ABG Base Excess ABG Hemoglobin Oxyhemoglobin Sodium Potassium Chloride Carbon Dioxide BUN Creatinine Glucose POC Glucose 64 L 205 H Lactic Acid Calcium Phosphorus Magnesium Direct Bilirubin AST ALT Alkaline Phosphatase Lactate Dehydrogenase Troponin T C-Reactive Protein Total Protein Albumin Prealbumin Triglycerides Cholesterol LDL Cholesterol Direct HDL Cholesterol Urine pH Urine WBC (Auto) Urine Creatinine Urine Total Protein Fluid Total Protein Vancomycin Trough Rheumatoid Factor Complement C4 Miscellaneous Test Crossmatch 10/03/16 10/04/16 10/04/16 23:33 04:18 06:30 WBC RBC 2.54 L Hgb 7.1 L Hct 21.7 L MCV MCH MCHC RDW 19.5 H Plt Count 76 L Lymph % (Auto) [place]ke % (Auto) Lymph # [place] # Baso # Seg Neutrophils % Seg Neuts % (Manual) 88.0 H Lymphocytes % (Manual) 6.0 L Monocytes % (Manual) Eosinophils % (Manual) Basophils % (Manual) Nucleated RBC % Seg Neutrophils # Seg Neutrophils # Man 8.8 H Lymphocytes # (Manual) 0.6 L Monocytes # (Manual) Eosinophils # (Manual) Basophils # (Manual) PT INR Fibrinogen dRVVT Confirm Interp Factor V Activity POC ABG pH 7.461 H POC ABG pCO2 33.6 L POC ABG pO2 211 H ABG pO2 ABG HCO3 ABG Base Excess ABG Hemoglobin Oxyhemoglobin Sodium Potassium Chloride Carbon Dioxide BUN Creatinine Glucose POC Glucose 136 H Lactic Acid Calcium Phosphorus Magnesium Direct Bilirubin AST ALT Alkaline Phosphatase Lactate Dehydrogenase Troponin T C-Reactive Protein Total Protein Albumin Prealbumin Triglycerides Cholesterol LDL Cholesterol Direct HDL Cholesterol Urine pH Urine WBC (Auto) Urine Creatinine Urine Total Protein Fluid Total Protein Vancomycin Trough Rheumatoid Factor Complement C4 Miscellaneous Test Crossmatch 10/04/16 10/04/16 10/04/16 06:30 11:45 17:54 WBC RBC Hgb Hct MCV MCH MCHC RDW Plt Count Lymph % (Auto) [place]ke % (Auto) Lymph # [place] # Baso # Seg Neutrophils % Seg Neuts % (Manual) Lymphocytes % (Manual) Monocytes % (Manual) Eosinophils % (Manual) Basophils % (Manual) Nucleated RBC % Seg Neutrophils # Seg Neutrophils # Man Lymphocytes # (Manual) Monocytes # (Manual) Eosinophils # (Manual) Basophils # (Manual) PT INR Fibrinogen dRVVT Confirm Interp Factor V Activity POC ABG pH POC ABG pCO2 POC ABG pO2 ABG pO2 ABG HCO3 ABG Base Excess ABG Hemoglobin Oxyhemoglobin Sodium 128 L Potassium Chloride 87.4 L Carbon Dioxide 20 L BUN 34 H Creatinine 2.9 H Glucose 127 H POC Glucose 158 H 160 H Lactic Acid Calcium 7.4 L Phosphorus Magnesium Direct Bilirubin AST ALT Alkaline Phosphatase Lactate Dehydrogenase Troponin T C-Reactive Protein Total Protein Albumin Prealbumin Triglycerides Cholesterol LDL Cholesterol Direct HDL Cholesterol Urine pH Urine WBC (Auto) Urine Creatinine Urine Total Protein Fluid Total Protein Vancomycin Trough Rheumatoid Factor Complement C4 Miscellaneous Test Crossmatch 10/04/16 10/05/16 10/05/16 23:25 04:30 05:00 WBC RBC 2.64 L Hgb 7.5 L Hct 22.6 L MCV MCH MCHC RDW 19.3 H Plt Count 80 L Lymph % (Auto) [place]ke % (Auto) Lymph # [place] # Baso # Seg Neutrophils % Seg Neuts % (Manual) Lymphocytes % (Manual) 12.0 L Monocytes % (Manual) Eosinophils % (Manual) Basophils % (Manual) Nucleated RBC % Seg Neutrophils # Seg Neutrophils # Man Lymphocytes # (Manual) Monocytes # (Manual) Eosinophils # (Manual) Basophils # (Manual) PT INR Fibrinogen dRVVT Confirm Interp Factor V Activity POC ABG pH 7.475 H POC ABG pCO2 33.3 L POC ABG pO2 140 H ABG pO2 ABG HCO3 ABG Base Excess ABG Hemoglobin Oxyhemoglobin Sodium Potassium Chloride Carbon Dioxide BUN Creatinine Glucose POC Glucose 141 H Lactic Acid Calcium Phosphorus Magnesium Direct Bilirubin AST ALT Alkaline Phosphatase Lactate Dehydrogenase Troponin T C-Reactive Protein Total Protein Albumin Prealbumin Triglycerides Cholesterol LDL Cholesterol Direct HDL Cholesterol Urine pH Urine WBC (Auto) Urine Creatinine Urine Total Protein Fluid Total Protein Vancomycin Trough Rheumatoid Factor Complement C4 Miscellaneous Test Crossmatch 10/05/16 10/05/16 10/05/16 05:00 05:09 12:58 WBC RBC Hgb Hct MCV MCH MCHC RDW Plt Count Lymph % (Auto) [place] % (Auto) Lymph # [place] # Baso # Seg Neutrophils % Seg Neuts % (Manual) Lymphocytes % (Manual) Monocytes % (Manual) Eosinophils % (Manual) Basophils % (Manual) Nucleated RBC % Seg Neutrophils # Seg Neutrophils # Man Lymphocytes # (Manual) Monocytes # (Manual) Eosinophils # (Manual) Basophils # (Manual) PT INR Fibrinogen dRVVT Confirm Interp Factor V Activity POC ABG pH POC ABG pCO2 POC ABG pO2 ABG pO2 ABG HCO3 ABG Base Excess ABG Hemoglobin Oxyhemoglobin Sodium 131 L Potassium Chloride 94.0 L Carbon Dioxide 20 L BUN 22 H Creatinine 2.0 H Glucose 123 H POC Glucose 166 H 179 H Lactic Acid Calcium 7.7 L Phosphorus 2.20 L D Magnesium Direct Bilirubin AST ALT Alkaline Phosphatase Lactate Dehydrogenase Troponin T C-Reactive Protein Total Protein Albumin Prealbumin Triglycerides Cholesterol LDL Cholesterol Direct HDL Cholesterol Urine pH Urine WBC (Auto) Urine Creatinine Urine Total Protein Fluid Total Protein Vancomycin Trough Rheumatoid Factor Complement C4 Miscellaneous Test Crossmatch 10/05/16 10/05/16 10/05/16 15:50 18:53 23:12 WBC RBC Hgb Hct MCV MCH MCHC RDW Plt Count Lymph % (Auto) [place] % (Auto) Lymph # [place]ke # Baso # Seg Neutrophils % Seg Neuts % (Manual) Lymphocytes % (Manual) Monocytes % (Manual) Eosinophils % (Manual) Basophils % (Manual) Nucleated RBC % Seg Neutrophils # Seg Neutrophils # Man Lymphocytes # (Manual) Monocytes # (Manual) Eosinophils # (Manual) Basophils # (Manual) PT INR Fibrinogen dRVVT Confirm Interp Factor V Activity POC ABG pH POC ABG pCO2 POC ABG pO2 ABG pO2 ABG HCO3 ABG Base Excess ABG Hemoglobin Oxyhemoglobin Sodium Potassium Chloride Carbon Dioxide BUN Creatinine Glucose POC Glucose 150 H 164 H Lactic Acid Calcium Phosphorus Magnesium Direct Bilirubin AST ALT Alkaline Phosphatase Lactate Dehydrogenase Troponin T C-Reactive Protein Total Protein Albumin Prealbumin Triglycerides Cholesterol LDL Cholesterol Direct HDL Cholesterol Urine pH Urine WBC (Auto) Urine Creatinine Urine Total Protein Fluid Total Protein Vancomycin Trough Rheumatoid Factor Complement C4 Miscellaneous Test Crossmatch See Detail 10/06/16 10/06/16 10/06/16 03:50 03:50 04:53 WBC RBC 3.00 L Hgb 8.6 L Hct 25.8 L MCV MCH MCHC RDW 17.9 H Plt Count 65 L Lymph % (Auto) Coke % (Auto) Lymph # [place]ke # Baso # Seg Neutrophils % Seg Neuts % (Manual) 30.0 L Lymphocytes % (Manual) 5.0 L Monocytes % (Manual) Eosinophils % (Manual) Basophils % (Manual) Nucleated RBC % Seg Neutrophils # Seg Neutrophils # Man Lymphocytes # (Manual) 0.4 L Monocytes # (Manual) Eosinophils # (Manual) Basophils # (Manual) PT INR Fibrinogen dRVVT Confirm Interp Factor V Activity POC ABG pH 7.310 L POC ABG pCO2 49.0 H POC ABG pO2 ABG pO2 ABG HCO3 ABG Base Excess ABG Hemoglobin Oxyhemoglobin Sodium 133 L Potassium Chloride 95.9 L Carbon Dioxide BUN 26 H Creatinine 2.0 H Glucose 116 H POC Glucose Lactic Acid Calcium 7.8 L Phosphorus Magnesium Direct Bilirubin AST ALT Alkaline Phosphatase Lactate Dehydrogenase Troponin T C-Reactive Protein Total Protein Albumin Prealbumin Triglycerides Cholesterol LDL Cholesterol Direct HDL Cholesterol Urine pH Urine WBC (Auto) Urine Creatinine Urine Total Protein Fluid Total Protein Vancomycin Trough Rheumatoid Factor Complement C4 Miscellaneous Test Crossmatch 10/06/16 10/06/16 10/06/16 05:23 11:52 18:34 WBC RBC Hgb Hct MCV MCH MCHC RDW Plt Count Lymph % (Auto) [place] % (Auto) Lymph # [place] # Baso # Seg Neutrophils % Seg Neuts % (Manual) Lymphocytes % (Manual) Monocytes % (Manual) Eosinophils % (Manual) Basophils % (Manual) Nucleated RBC % Seg Neutrophils # Seg Neutrophils # Man Lymphocytes # (Manual) Monocytes # (Manual) Eosinophils # (Manual) Basophils # (Manual) PT INR Fibrinogen dRVVT Confirm Interp Factor V Activity POC ABG pH POC ABG pCO2 POC ABG pO2 ABG pO2 ABG HCO3 ABG Base Excess ABG Hemoglobin Oxyhemoglobin Sodium Potassium Chloride Carbon Dioxide BUN Creatinine Glucose POC Glucose 126 H 116 H 129 H Lactic Acid Calcium Phosphorus Magnesium Direct Bilirubin AST ALT Alkaline Phosphatase Lactate Dehydrogenase Troponin T C-Reactive Protein Total Protein Albumin Prealbumin Triglycerides Cholesterol LDL Cholesterol Direct HDL Cholesterol Urine pH Urine WBC (Auto) Urine Creatinine Urine Total Protein Fluid Total Protein Vancomycin Trough Rheumatoid Factor Complement C4 Miscellaneous Test Crossmatch 10/07/16 10/07/16 10/07/16 03:45 05:00 10:00 WBC 17.0 H RBC 2.68 L Hgb 7.3 L Hct 25.3 L MCV MCH 27 L MCHC 29 L RDW 19.6 H Plt Count 74 L Lymph % (Auto) [place]ke % (Auto) Lymph # [place] # Baso # Seg Neutrophils % Seg Neuts % (Manual) Lymphocytes % (Manual) 12.0 L Monocytes % (Manual) Eosinophils % (Manual) Basophils % (Manual) Nucleated RBC % 4.0 H Seg Neutrophils # Seg Neutrophils # Man 10.7 H Lymphocytes # (Manual) Monocytes # (Manual) Eosinophils # (Manual) Basophils # (Manual) PT INR Fibrinogen dRVVT Confirm Interp Factor V Activity POC ABG pH POC ABG pCO2 POC ABG pO2 ABG pO2 ABG HCO3 ABG Base Excess ABG Hemoglobin Oxyhemoglobin Sodium 130 L Potassium 3.2 L Chloride 93.9 L Carbon Dioxide 20 L BUN 44 H Creatinine 2.7 H Glucose 129 H POC Glucose Lactic Acid Calcium 7.4 L Phosphorus Magnesium Direct Bilirubin AST ALT 6 L Alkaline Phosphatase 195 H Lactate Dehydrogenase Troponin T C-Reactive Protein Total Protein 4.9 L Albumin 1.0 L Prealbumin Triglycerides Cholesterol LDL Cholesterol Direct HDL Cholesterol Urine pH Urine WBC (Auto) Urine Creatinine Urine Total Protein Fluid Total Protein Vancomycin Trough Rheumatoid Factor Complement C4 Miscellaneous Test Flexitest 1 H Crossmatch 10/07/16 10/07/16 10/07/16 10:00 11:24 18:10 WBC RBC Hgb Hct MCV MCH MCHC RDW Plt Count Lymph % (Auto) [place] % (Auto) Lymph # [place] # Baso # Seg Neutrophils % Seg Neuts % (Manual) Lymphocytes % (Manual) Monocytes % (Manual) Eosinophils % (Manual) Basophils % (Manual) Nucleated RBC % Seg Neutrophils # Seg Neutrophils # Man Lymphocytes # (Manual) Monocytes # (Manual) Eosinophils # (Manual) Basophils # (Manual) PT INR Fibrinogen dRVVT Confirm Interp Factor V Activity POC ABG pH POC ABG pCO2 POC ABG pO2 ABG pO2 ABG HCO3 ABG Base Excess ABG Hemoglobin Oxyhemoglobin Sodium Potassium Chloride Carbon Dioxide BUN Creatinine Glucose POC Glucose 116 H 130 H Lactic Acid Calcium Phosphorus Magnesium Direct Bilirubin AST ALT Alkaline Phosphatase Lactate Dehydrogenase Troponin T C-Reactive Protein 19.40 H Total Protein Albumin Prealbumin Triglycerides Cholesterol LDL Cholesterol Direct HDL Cholesterol Urine pH Urine WBC (Auto) Urine Creatinine Urine Total Protein Fluid Total Protein Vancomycin Trough Rheumatoid Factor Complement C4 Miscellaneous Test Crossmatch 10/07/16 10/08/16 10/08/16 18:30 00:00 04:00 WBC RBC Hgb Hct MCV MCH MCHC RDW Plt Count Lymph % (Auto) [place] % (Auto) Lymph # [place] # Baso # Seg Neutrophils % Seg Neuts % (Manual) Lymphocytes % (Manual) Monocytes % (Manual) Eosinophils % (Manual) Basophils % (Manual) Nucleated RBC % Seg Neutrophils # Seg Neutrophils # Man Lymphocytes # (Manual) Monocytes # (Manual) Eosinophils # (Manual) Basophils # (Manual) PT INR Fibrinogen dRVVT Confirm Interp Factor V Activity POC ABG pH POC ABG pCO2 POC ABG pO2 ABG pO2 ABG HCO3 ABG Base Excess ABG Hemoglobin Oxyhemoglobin Sodium 132 L Potassium 3.3 L Chloride 93.6 L Carbon Dioxide 17 L BUN 59 H Creatinine 2.7 H Glucose 121 H POC Glucose 122 H Lactic Acid Calcium 7.6 L Phosphorus Magnesium Direct Bilirubin AST ALT Alkaline Phosphatase Lactate Dehydrogenase Troponin T C-Reactive Protein Total Protein Albumin Prealbumin Triglycerides Cholesterol LDL Cholesterol Direct HDL Cholesterol Urine pH Urine WBC (Auto) > 182.0 H Urine Creatinine Urine Total Protein Fluid Total Protein Vancomycin Trough Rheumatoid Factor Complement C4 Miscellaneous Test Crossmatch 10/08/16 10/08/16 10/08/16 04:30 05:30 11:51 WBC RBC 5.15 H Hgb 14.4 H D Hct 44.5 H D MCV MCH MCHC RDW 19.5 H Plt Count 56 L Lymph % (Auto) [place]ke % (Auto) Lymph # [place] # Baso # Seg Neutrophils % Seg Neuts % (Manual) 24.0 L Lymphocytes % (Manual) 8.0 L Monocytes % (Manual) Eosinophils % (Manual) Basophils % (Manual) Nucleated RBC % 9.0 H Seg Neutrophils # Seg Neutrophils # Man Lymphocytes # (Manual) 0.7 L Monocytes # (Manual) Eosinophils # (Manual) Basophils # (Manual) PT INR Fibrinogen dRVVT Confirm Interp Factor V Activity POC ABG pH POC ABG pCO2 POC ABG pO2 ABG pO2 ABG HCO3 ABG Base Excess ABG Hemoglobin Oxyhemoglobin Sodium Potassium Chloride Carbon Dioxide BUN Creatinine Glucose POC Glucose 125 H 150 H Lactic Acid Calcium Phosphorus Magnesium Direct Bilirubin AST ALT Alkaline Phosphatase Lactate Dehydrogenase Troponin T C-Reactive Protein Total Protein Albumin Prealbumin Triglycerides Cholesterol LDL Cholesterol Direct HDL Cholesterol Urine pH Urine WBC (Auto) Urine Creatinine Urine Total Protein Fluid Total Protein Vancomycin Trough Rheumatoid Factor Complement C4 Miscellaneous Test Crossmatch 10/08/16 10/08/16 10/08/16 12:49 17:07 19:30 WBC RBC Hgb 7.1 L D Hct 22.4 L D MCV MCH MCHC RDW Plt Count Lymph % (Auto) [place] % (Auto) Lymph # [place] # Baso # Seg Neutrophils % Seg Neuts % (Manual) Lymphocytes % (Manual) Monocytes % (Manual) Eosinophils % (Manual) Basophils % (Manual) Nucleated RBC % Seg Neutrophils # Seg Neutrophils # Man Lymphocytes # (Manual) Monocytes # (Manual) Eosinophils # (Manual) Basophils # (Manual) PT INR Fibrinogen dRVVT Confirm Interp Factor V Activity POC ABG pH POC ABG pCO2 28.2 L POC ABG pO2 111 H ABG pO2 ABG HCO3 ABG Base Excess ABG Hemoglobin Oxyhemoglobin Sodium Potassium Chloride Carbon Dioxide BUN Creatinine Glucose POC Glucose 145 H Lactic Acid Calcium Phosphorus Magnesium Direct Bilirubin AST ALT Alkaline Phosphatase Lactate Dehydrogenase Troponin T C-Reactive Protein Total Protein Albumin Prealbumin Triglycerides Cholesterol LDL Cholesterol Direct HDL Cholesterol Urine pH Urine WBC (Auto) Urine Creatinine Urine Total Protein Fluid Total Protein Vancomycin Trough Rheumatoid Factor Complement C4 Miscellaneous Test Crossmatch 10/08/16 10/09/16 10/09/16 19:30 03:45 03:45 WBC 12.6 H RBC 2.36 L Hgb 6.7 L Hct 21.1 L MCV MCH MCHC RDW 19.5 H Plt Count 75 L Lymph % (Auto) [place] % (Auto) Lymph # [place] # Baso # Seg Neutrophils % Seg Neuts % (Manual) Lymphocytes % (Manual) Monocytes % (Manual) 10.0 H Eosinophils % (Manual) Basophils % (Manual) Nucleated RBC % 3.0 H Seg Neutrophils # Seg Neutrophils # Man Lymphocytes # (Manual) Monocytes # (Manual) 1.3 H Eosinophils # (Manual) Basophils # (Manual) PT 18.0 H INR 1.41 H Fibrinogen dRVVT Confirm Interp Factor V Activity POC ABG pH POC ABG pCO2 POC ABG pO2 ABG pO2 ABG HCO3 ABG Base Excess ABG Hemoglobin Oxyhemoglobin Sodium 135 L Potassium Chloride Carbon Dioxide 17 L BUN 81 H Creatinine 3.2 H Glucose 109 H POC Glucose Lactic Acid Calcium 7.4 L Phosphorus 4.60 H D Magnesium Direct Bilirubin AST ALT Alkaline Phosphatase Lactate Dehydrogenase Troponin T C-Reactive Protein Total Protein Albumin Prealbumin Triglycerides Cholesterol LDL Cholesterol Direct HDL Cholesterol Urine pH Urine WBC (Auto) Urine Creatinine Urine Total Protein Fluid Total Protein Vancomycin Trough Rheumatoid Factor Complement C4 Miscellaneous Test Crossmatch 10/09/16 10/09/16 10/09/16 03:45 05:14 07:20 WBC RBC Hgb Hct MCV MCH MCHC RDW Plt Count Lymph % (Auto) [place] % (Auto) Lymph # [place] # Baso # Seg Neutrophils % Seg Neuts % (Manual) Lymphocytes % (Manual) Monocytes % (Manual) Eosinophils % (Manual) Basophils % (Manual) Nucleated RBC % Seg Neutrophils # Seg Neutrophils # Man Lymphocytes # (Manual) Monocytes # (Manual) Eosinophils # (Manual) Basophils # (Manual) PT 19.0 H INR 1.51 H Fibrinogen dRVVT Confirm Interp Factor V Activity POC ABG pH POC ABG pCO2 POC ABG pO2 ABG pO2 ABG HCO3 ABG Base Excess ABG Hemoglobin Oxyhemoglobin Sodium Potassium Chloride Carbon Dioxide BUN Creatinine Glucose POC Glucose 151 H Lactic Acid Calcium Phosphorus Magnesium Direct Bilirubin AST ALT Alkaline Phosphatase Lactate Dehydrogenase Troponin T C-Reactive Protein Total Protein Albumin Prealbumin Triglycerides Cholesterol LDL Cholesterol Direct HDL Cholesterol Urine pH Urine WBC (Auto) Urine Creatinine Urine Total Protein Fluid Total Protein Vancomycin Trough Rheumatoid Factor Complement C4 Miscellaneous Test Crossmatch See Detail 10/09/16 10/09/16 10/09/16 11:46 16:20 16:43 WBC RBC Hgb 7.2 L Hct 22.2 L MCV MCH MCHC RDW Plt Count Lymph % (Auto) [place] % (Auto) Lymph # [place] # Baso # Seg Neutrophils % Seg Neuts % (Manual) Lymphocytes % (Manual) Monocytes % (Manual) Eosinophils % (Manual) Basophils % (Manual) Nucleated RBC % Seg Neutrophils # Seg Neutrophils # Man Lymphocytes # (Manual) Monocytes # (Manual) Eosinophils # (Manual) Basophils # (Manual) PT INR Fibrinogen dRVVT Confirm Interp Factor V Activity POC ABG pH POC ABG pCO2 POC ABG pO2 ABG pO2 ABG HCO3 ABG Base Excess ABG Hemoglobin Oxyhemoglobin Sodium Potassium Chloride Carbon Dioxide BUN Creatinine Glucose POC Glucose 133 H 141 H Lactic Acid Calcium Phosphorus Magnesium Direct Bilirubin AST ALT Alkaline Phosphatase Lactate Dehydrogenase Troponin T C-Reactive Protein Total Protein Albumin Prealbumin Triglycerides Cholesterol LDL Cholesterol Direct HDL Cholesterol Urine pH Urine WBC (Auto) Urine Creatinine Urine Total Protein Fluid Total Protein Vancomycin Trough Rheumatoid Factor Complement C4 Miscellaneous Test Crossmatch 10/10/16 10/10/16 10/10/16 05:00 05:00 11:19 WBC 18.5 H RBC 2.19 L Hgb 6.4 L Hct 19.6 L* MCV MCH MCHC RDW 19.3 H Plt Count 93 L Lymph % (Auto) [place]ke % (Auto) Lymph # [place] # Baso # Seg Neutrophils % Seg Neuts % (Manual) Lymphocytes % (Manual) 10.0 L Monocytes % (Manual) Eosinophils % (Manual) Basophils % (Manual) Nucleated RBC % 4.0 H Seg Neutrophils # Seg Neutrophils # Man 11.3 H Lymphocytes # (Manual) Monocytes # (Manual) Eosinophils # (Manual) Basophils # (Manual) PT INR Fibrinogen dRVVT Confirm Interp Factor V Activity POC ABG pH POC ABG pCO2 POC ABG pO2 ABG pO2 ABG HCO3 ABG Base Excess ABG Hemoglobin Oxyhemoglobin Sodium Potassium 5.7 H D Chloride Carbon Dioxide 16 L BUN 94 H Creatinine 3.1 H Glucose 131 H POC Glucose 153 H Lactic Acid Calcium 8.2 L Phosphorus 5.10 H Magnesium 2.40 H Direct Bilirubin 0.3 H AST ALT < 5 L Alkaline Phosphatase 319 H Lactate Dehydrogenase Troponin T C-Reactive Protein Total Protein 5.1 L Albumin 1.0 L Prealbumin Triglycerides Cholesterol LDL Cholesterol Direct HDL Cholesterol Urine pH Urine WBC (Auto) Urine Creatinine Urine Total Protein Fluid Total Protein Vancomycin Trough Rheumatoid Factor Complement C4 Miscellaneous Test Crossmatch 10/10/16 10/10/16 10/11/16 17:50 23:30 04:15 WBC RBC Hgb Hct MCV MCH MCHC RDW Plt Count Lymph % (Auto) [place]ke % (Auto) Lymph # [place] # Baso # Seg Neutrophils % Seg Neuts % (Manual) Lymphocytes % (Manual) Monocytes % (Manual) Eosinophils % (Manual) Basophils % (Manual) Nucleated RBC % Seg Neutrophils # Seg Neutrophils # Man Lymphocytes # (Manual) Monocytes # (Manual) Eosinophils # (Manual) Basophils # (Manual) PT INR Fibrinogen dRVVT Confirm Interp Factor V Activity POC ABG pH POC ABG pCO2 POC ABG pO2 ABG pO2 ABG HCO3 ABG Base Excess ABG Hemoglobin Oxyhemoglobin Sodium Potassium Chloride 96.4 L Carbon Dioxide 21 L BUN 57 H Creatinine 2.1 H Glucose 151 H POC Glucose 146 H 141 H Lactic Acid Calcium 8.3 L Phosphorus Magnesium Direct Bilirubin AST ALT Alkaline Phosphatase Lactate Dehydrogenase Troponin T C-Reactive Protein Total Protein Albumin Prealbumin Triglycerides Cholesterol LDL Cholesterol Direct HDL Cholesterol Urine pH Urine WBC (Auto) Urine Creatinine Urine Total Protein Fluid Total Protein Vancomycin Trough Rheumatoid Factor Complement C4 Miscellaneous Test Crossmatch 10/11/16 10/11/16 10/11/16 04:15 04:15 05:30 WBC 28.3 H RBC 3.12 L Hgb 9.3 L Hct 28.7 L D MCV MCH MCHC RDW 17.7 H Plt Count 128 L Lymph % (Auto) [place]ke % (Auto) Lymph # [place] # Baso # Seg Neutrophils % Seg Neuts % (Manual) Lymphocytes % (Manual) Monocytes % (Manual) Eosinophils % (Manual) Basophils % (Manual) Nucleated RBC % Seg Neutrophils # Seg Neutrophils # Man Lymphocytes # (Manual) Monocytes # (Manual) Eosinophils # (Manual) Basophils # (Manual) PT INR Fibrinogen dRVVT Confirm Interp Factor V Activity POC ABG pH POC ABG pCO2 POC ABG pO2 ABG pO2 ABG HCO3 ABG Base Excess ABG Hemoglobin Oxyhemoglobin Sodium Potassium Chloride Carbon Dioxide BUN Creatinine Glucose POC Glucose 167 H Lactic Acid Calcium Phosphorus Magnesium Direct Bilirubin AST ALT Alkaline Phosphatase Lactate Dehydrogenase Troponin T C-Reactive Protein 15.80 H Total Protein Albumin Prealbumin Triglycerides Cholesterol LDL Cholesterol Direct HDL Cholesterol Urine pH Urine WBC (Auto) Urine Creatinine Urine Total Protein Fluid Total Protein Vancomycin Trough Rheumatoid Factor Complement C4 Miscellaneous Test Crossmatch 10/11/16 10/11/16 10/11/16 11:40 15:49 23:57 WBC RBC Hgb Hct MCV MCH MCHC RDW Plt Count Lymph % (Auto) [place]ke % (Auto) Lymph # [place] # Baso # Seg Neutrophils % Seg Neuts % (Manual) Lymphocytes % (Manual) Monocytes % (Manual) Eosinophils % (Manual) Basophils % (Manual) Nucleated RBC % Seg Neutrophils # Seg Neutrophils # Man Lymphocytes # (Manual) Monocytes # (Manual) Eosinophils # (Manual) Basophils # (Manual) PT INR Fibrinogen dRVVT Confirm Interp Factor V Activity POC ABG pH POC ABG pCO2 POC ABG pO2 ABG pO2 ABG HCO3 ABG Base Excess ABG Hemoglobin Oxyhemoglobin Sodium Potassium Chloride Carbon Dioxide BUN Creatinine Glucose POC Glucose 139 H 168 H 161 H Lactic Acid Calcium Phosphorus Magnesium Direct Bilirubin AST ALT Alkaline Phosphatase Lactate Dehydrogenase Troponin T C-Reactive Protein Total Protein Albumin Prealbumin Triglycerides Cholesterol LDL Cholesterol Direct HDL Cholesterol Urine pH Urine WBC (Auto) Urine Creatinine Urine Total Protein Fluid Total Protein Vancomycin Trough Rheumatoid Factor Complement C4 Miscellaneous Test Crossmatch 10/12/16 10/12/16 10/12/16 04:40 04:40 05:44 WBC 22.5 H RBC 2.88 L Hgb 8.8 L Hct 26.8 L MCV MCH MCHC RDW 17.8 H Plt Count Lymph % (Auto) [place]ke % (Auto) Lymph # [place] # Baso # Seg Neutrophils % Seg Neuts % (Manual) Lymphocytes % (Manual) Monocytes % (Manual) Eosinophils % (Manual) Basophils % (Manual) Nucleated RBC % Seg Neutrophils # Seg Neutrophils # Man Lymphocytes # (Manual) Monocytes # (Manual) Eosinophils # (Manual) Basophils # (Manual) PT INR Fibrinogen dRVVT Confirm Interp Factor V Activity POC ABG pH POC ABG pCO2 POC ABG pO2 ABG pO2 ABG HCO3 ABG Base Excess ABG Hemoglobin Oxyhemoglobin Sodium 134 L Potassium Chloride 93.0 L Carbon Dioxide BUN 74 H Creatinine 2.5 H Glucose 137 H POC Glucose 158 H Lactic Acid Calcium 8.2 L Phosphorus Magnesium Direct Bilirubin AST ALT Alkaline Phosphatase Lactate Dehydrogenase Troponin T C-Reactive Protein Total Protein Albumin Prealbumin Triglycerides Cholesterol LDL Cholesterol Direct HDL Cholesterol Urine pH Urine WBC (Auto) Urine Creatinine Urine Total Protein Fluid Total Protein Vancomycin Trough Rheumatoid Factor Complement C4 Miscellaneous Test Crossmatch 10/12/16 10/12/16 10/12/16 12:27 18:18 23:46 WBC RBC Hgb Hct MCV MCH MCHC RDW Plt Count Lymph % (Auto) [place] % (Auto) Lymph # [place] # Baso # Seg Neutrophils % Seg Neuts % (Manual) Lymphocytes % (Manual) Monocytes % (Manual) Eosinophils % (Manual) Basophils % (Manual) Nucleated RBC % Seg Neutrophils # Seg Neutrophils # Man Lymphocytes # (Manual) Monocytes # (Manual) Eosinophils # (Manual) Basophils # (Manual) PT INR Fibrinogen dRVVT Confirm Interp Factor V Activity POC ABG pH POC ABG pCO2 POC ABG pO2 ABG pO2 ABG HCO3 ABG Base Excess ABG Hemoglobin Oxyhemoglobin Sodium Potassium Chloride Carbon Dioxide BUN Creatinine Glucose POC Glucose 153 H 140 H 150 H Lactic Acid Calcium Phosphorus Magnesium Direct Bilirubin AST ALT Alkaline Phosphatase Lactate Dehydrogenase Troponin T C-Reactive Protein Total Protein Albumin Prealbumin Triglycerides Cholesterol LDL Cholesterol Direct HDL Cholesterol Urine pH Urine WBC (Auto) Urine Creatinine Urine Total Protein Fluid Total Protein Vancomycin Trough Rheumatoid Factor Complement C4 Miscellaneous Test Crossmatch 10/13/16 10/13/16 10/13/16 06:22 09:20 12:29 WBC RBC Hgb Hct MCV MCH MCHC RDW Plt Count Lymph % (Auto) [place] % (Auto) Lymph # [place] # Baso # Seg Neutrophils % Seg Neuts % (Manual) Lymphocytes % (Manual) Monocytes % (Manual) Eosinophils % (Manual) Basophils % (Manual) Nucleated RBC % Seg Neutrophils # Seg Neutrophils # Man Lymphocytes # (Manual) Monocytes # (Manual) Eosinophils # (Manual) Basophils # (Manual) PT INR Fibrinogen dRVVT Confirm Interp Factor V Activity POC ABG pH POC ABG pCO2 POC ABG pO2 ABG pO2 ABG HCO3 ABG Base Excess ABG Hemoglobin Oxyhemoglobin Sodium Potassium Chloride Carbon Dioxide BUN Creatinine Glucose POC Glucose 165 H 193 H Lactic Acid Calcium Phosphorus Magnesium Direct Bilirubin AST ALT Alkaline Phosphatase Lactate Dehydrogenase Troponin T C-Reactive Protein Total Protein Albumin Prealbumin Triglycerides Cholesterol LDL Cholesterol Direct HDL Cholesterol Urine pH Urine WBC (Auto) Urine Creatinine Urine Total Protein Fluid Total Protein Vancomycin Trough Rheumatoid Factor Complement C4 Miscellaneous Test Flexitest 1 H Crossmatch 10/13/16 10/13/16 10/13/16 18:09 Unknown Unknown WBC 23.4 H RBC 2.83 L Hgb 8.7 L Hct 26.1 L MCV MCH MCHC RDW 18.1 H Plt Count Lymph % (Auto) [place] % (Auto) Lymph # [place] # Baso # Seg Neutrophils % Seg Neuts % (Manual) Lymphocytes % (Manual) Monocytes % (Manual) Eosinophils % (Manual) Basophils % (Manual) Nucleated RBC % Seg Neutrophils # Seg Neutrophils # Man Lymphocytes # (Manual) Monocytes # (Manual) Eosinophils # (Manual) Basophils # (Manual) PT INR Fibrinogen dRVVT Confirm Interp Factor V Activity POC ABG pH POC ABG pCO2 POC ABG pO2 ABG pO2 ABG HCO3 ABG Base Excess ABG Hemoglobin Oxyhemoglobin Sodium Potassium Chloride 95.8 L Carbon Dioxide BUN 82 H Creatinine 2.6 H Glucose 152 H POC Glucose 166 H Lactic Acid Calcium Phosphorus Magnesium Direct Bilirubin AST ALT Alkaline Phosphatase Lactate Dehydrogenase Troponin T C-Reactive Protein Total Protein Albumin Prealbumin Triglycerides Cholesterol LDL Cholesterol Direct HDL Cholesterol Urine pH Urine WBC (Auto) Urine Creatinine Urine Total Protein Fluid Total Protein Vancomycin Trough Rheumatoid Factor Complement C4 Miscellaneous Test Crossmatch 10/14/16 10/14/16 10/14/16 05:38 06:35 08:10 WBC 20.7 H RBC 2.81 L Hgb 8.4 L Hct 27.2 L MCV MCH MCHC RDW 19.4 H Plt Count Lymph % (Auto) [place]ke % (Auto) Lymph # [place] # Baso # Seg Neutrophils % Seg Neuts % (Manual) Lymphocytes % (Manual) Monocytes % (Manual) Eosinophils % (Manual) Basophils % (Manual) Nucleated RBC % Seg Neutrophils # Seg Neutrophils # Man Lymphocytes # (Manual) Monocytes # (Manual) Eosinophils # (Manual) Basophils # (Manual) PT INR Fibrinogen dRVVT Confirm Interp Factor V Activity POC ABG pH POC ABG pCO2 POC ABG pO2 ABG pO2 ABG HCO3 ABG Base Excess ABG Hemoglobin Oxyhemoglobin Sodium Potassium Chloride Carbon Dioxide BUN 58 H Creatinine 1.9 H Glucose 169 H POC Glucose 195 H Lactic Acid Calcium Phosphorus Magnesium Direct Bilirubin AST ALT Alkaline Phosphatase Lactate Dehydrogenase Troponin T C-Reactive Protein Total Protein Albumin Prealbumin Triglycerides Cholesterol LDL Cholesterol Direct HDL Cholesterol Urine pH Urine WBC (Auto) Urine Creatinine Urine Total Protein Fluid Total Protein Vancomycin Trough Rheumatoid Factor Complement C4 Miscellaneous Test Crossmatch 10/14/16 10/14/16 10/14/16 11:44 17:13 23:28 WBC RBC Hgb Hct MCV MCH MCHC RDW Plt Count Lymph % (Auto) [place] % (Auto) Lymph # [place] # Baso # Seg Neutrophils % Seg Neuts % (Manual) Lymphocytes % (Manual) Monocytes % (Manual) Eosinophils % (Manual) Basophils % (Manual) Nucleated RBC % Seg Neutrophils # Seg Neutrophils # Man Lymphocytes # (Manual) Monocytes # (Manual) Eosinophils # (Manual) Basophils # (Manual) PT INR Fibrinogen dRVVT Confirm Interp Factor V Activity POC ABG pH POC ABG pCO2 POC ABG pO2 ABG pO2 ABG HCO3 ABG Base Excess ABG Hemoglobin Oxyhemoglobin Sodium Potassium Chloride Carbon Dioxide BUN Creatinine Glucose POC Glucose 174 H 121 H 151 H Lactic Acid Calcium Phosphorus Magnesium Direct Bilirubin AST ALT Alkaline Phosphatase Lactate Dehydrogenase Troponin T C-Reactive Protein Total Protein Albumin Prealbumin Triglycerides Cholesterol LDL Cholesterol Direct HDL Cholesterol Urine pH Urine WBC (Auto) Urine Creatinine Urine Total Protein Fluid Total Protein Vancomycin Trough Rheumatoid Factor Complement C4 Miscellaneous Test Crossmatch 10/15/16 10/15/16 10/15/16 05:06 12:26 17:48 WBC RBC Hgb Hct MCV MCH MCHC RDW Plt Count Lymph % (Auto) [place] % (Auto) Lymph # [place] # Baso # Seg Neutrophils % Seg Neuts % (Manual) Lymphocytes % (Manual) Monocytes % (Manual) Eosinophils % (Manual) Basophils % (Manual) Nucleated RBC % Seg Neutrophils # Seg Neutrophils # Man Lymphocytes # (Manual) Monocytes # (Manual) Eosinophils # (Manual) Basophils # (Manual) PT INR Fibrinogen dRVVT Confirm Interp Factor V Activity POC ABG pH POC ABG pCO2 POC ABG pO2 ABG pO2 ABG HCO3 ABG Base Excess ABG Hemoglobin Oxyhemoglobin Sodium Potassium Chloride Carbon Dioxide BUN Creatinine Glucose POC Glucose 151 H 149 H 153 H Lactic Acid Calcium Phosphorus Magnesium Direct Bilirubin AST ALT Alkaline Phosphatase Lactate Dehydrogenase Troponin T C-Reactive Protein Total Protein Albumin Prealbumin Triglycerides Cholesterol LDL Cholesterol Direct HDL Cholesterol Urine pH Urine WBC (Auto) Urine Creatinine Urine Total Protein Fluid Total Protein Vancomycin Trough Rheumatoid Factor Complement C4 Miscellaneous Test Crossmatch 10/15/16 10/15/16 10/16/16 Unknown Unknown 00:02 WBC 23.4 H RBC 2.78 L Hgb 8.5 L Hct 25.7 L MCV MCH MCHC RDW 18.7 H Plt Count Lymph % (Auto) [place] % (Auto) Lymph # [place]ke # Baso # Seg Neutrophils % Seg Neuts % (Manual) Lymphocytes % (Manual) Monocytes % (Manual) Eosinophils % (Manual) Basophils % (Manual) Nucleated RBC % Seg Neutrophils # Seg Neutrophils # Man Lymphocytes # (Manual) Monocytes # (Manual) Eosinophils # (Manual) Basophils # (Manual) PT INR Fibrinogen dRVVT Confirm Interp Factor V Activity POC ABG pH POC ABG pCO2 POC ABG pO2 ABG pO2 ABG HCO3 ABG Base Excess ABG Hemoglobin Oxyhemoglobin Sodium Potassium Chloride Carbon Dioxide BUN 73 H Creatinine 2.3 H Glucose 120 H POC Glucose 137 H Lactic Acid Calcium Phosphorus Magnesium Direct Bilirubin AST ALT Alkaline Phosphatase Lactate Dehydrogenase Troponin T C-Reactive Protein Total Protein Albumin Prealbumin Triglycerides Cholesterol LDL Cholesterol Direct HDL Cholesterol Urine pH Urine WBC (Auto) Urine Creatinine Urine Total Protein Fluid Total Protein Vancomycin Trough Rheumatoid Factor Complement C4 Miscellaneous Test Crossmatch 10/16/16 10/16/16 10/16/16 05:44 06:25 06:25 WBC 22.5 H RBC 2.76 L Hgb 8.3 L Hct 25.2 L MCV MCH MCHC RDW 18.3 H Plt Count Lymph % (Auto) Coke % (Auto) Lymph # [place]ke # Baso # Seg Neutrophils % Seg Neuts % (Manual) Lymphocytes % (Manual) Monocytes % (Manual) Eosinophils % (Manual) Basophils % (Manual) Nucleated RBC % Seg Neutrophils # Seg Neutrophils # Man Lymphocytes # (Manual) Monocytes # (Manual) Eosinophils # (Manual) Basophils # (Manual) PT INR Fibrinogen dRVVT Confirm Interp Factor V Activity POC ABG pH POC ABG pCO2 POC ABG pO2 ABG pO2 ABG HCO3 ABG Base Excess ABG Hemoglobin Oxyhemoglobin Sodium Potassium Chloride Carbon Dioxide BUN 92 H Creatinine 3.0 H Glucose 138 H POC Glucose 110 H Lactic Acid Calcium Phosphorus Magnesium Direct Bilirubin AST ALT Alkaline Phosphatase Lactate Dehydrogenase Troponin T C-Reactive Protein Total Protein Albumin Prealbumin Triglycerides Cholesterol LDL Cholesterol Direct HDL Cholesterol Urine pH Urine WBC (Auto) Urine Creatinine Urine Total Protein Fluid Total Protein Vancomycin Trough Rheumatoid Factor Complement C4 Miscellaneous Test Crossmatch 10/16/16 10/16/16 10/16/16 11:27 11:48 17:36 WBC RBC Hgb Hct MCV MCH MCHC RDW Plt Count Lymph % (Auto) [place]ke % (Auto) Lymph # [place] # Baso # Seg Neutrophils % Seg Neuts % (Manual) Lymphocytes % (Manual) Monocytes % (Manual) Eosinophils % (Manual) Basophils % (Manual) Nucleated RBC % Seg Neutrophils # Seg Neutrophils # Man Lymphocytes # (Manual) Monocytes # (Manual) Eosinophils # (Manual) Basophils # (Manual) PT INR Fibrinogen dRVVT Confirm Interp Factor V Activity POC ABG pH 7.582 H POC ABG pCO2 27.4 L POC ABG pO2 110 H ABG pO2 ABG HCO3 ABG Base Excess ABG Hemoglobin Oxyhemoglobin Sodium Potassium Chloride Carbon Dioxide BUN Creatinine Glucose POC Glucose 121 H 133 H Lactic Acid Calcium Phosphorus Magnesium Direct Bilirubin AST ALT Alkaline Phosphatase Lactate Dehydrogenase Troponin T C-Reactive Protein Total Protein Albumin Prealbumin Triglycerides Cholesterol LDL Cholesterol Direct HDL Cholesterol Urine pH Urine WBC (Auto) Urine Creatinine Urine Total Protein Fluid Total Protein Vancomycin Trough Rheumatoid Factor Complement C4 Miscellaneous Test Crossmatch 10/16/16 10/17/16 10/17/16 20:48 04:24 04:24 WBC 21.4 H RBC 2.72 L Hgb 8.0 L Hct 25.2 L MCV MCH MCHC RDW 18.0 H Plt Count Lymph % (Auto) [place]ke % (Auto) Lymph # [place] # Baso # Seg Neutrophils % Seg Neuts % (Manual) Lymphocytes % (Manual) Monocytes % (Manual) Eosinophils % (Manual) Basophils % (Manual) Nucleated RBC % Seg Neutrophils # Seg Neutrophils # Man Lymphocytes # (Manual) Monocytes # (Manual) Eosinophils # (Manual) Basophils # (Manual) PT INR Fibrinogen dRVVT Confirm Interp Factor V Activity POC ABG pH 7.561 H POC ABG pCO2 24.4 L POC ABG pO2 77 L ABG pO2 ABG HCO3 ABG Base Excess ABG Hemoglobin Oxyhemoglobin Sodium 148 H Potassium Chloride Carbon Dioxide BUN 104 H Creatinine 3.0 H Glucose 149 H POC Glucose Lactic Acid Calcium Phosphorus Magnesium Direct Bilirubin AST ALT Alkaline Phosphatase 138 H Lactate Dehydrogenase Troponin T C-Reactive Protein Total Protein 6.2 L Albumin 1.5 L Prealbumin Triglycerides Cholesterol LDL Cholesterol Direct HDL Cholesterol Urine pH Urine WBC (Auto) Urine Creatinine Urine Total Protein Fluid Total Protein Vancomycin Trough Rheumatoid Factor Complement C4 Miscellaneous Test Crossmatch 10/17/16 10/17/16 10/17/16 06:02 12:17 17:14 WBC RBC Hgb Hct MCV MCH MCHC RDW Plt Count Lymph % (Auto) [place] % (Auto) Lymph # [place] # Baso # Seg Neutrophils % Seg Neuts % (Manual) Lymphocytes % (Manual) Monocytes % (Manual) Eosinophils % (Manual) Basophils % (Manual) Nucleated RBC % Seg Neutrophils # Seg Neutrophils # Man Lymphocytes # (Manual) Monocytes # (Manual) Eosinophils # (Manual) Basophils # (Manual) PT INR Fibrinogen dRVVT Confirm Interp Factor V Activity POC ABG pH POC ABG pCO2 POC ABG pO2 ABG pO2 ABG HCO3 ABG Base Excess ABG Hemoglobin Oxyhemoglobin Sodium Potassium Chloride Carbon Dioxide BUN Creatinine Glucose POC Glucose 170 H 167 H 126 H Lactic Acid Calcium Phosphorus Magnesium Direct Bilirubin AST ALT Alkaline Phosphatase Lactate Dehydrogenase Troponin T C-Reactive Protein Total Protein Albumin Prealbumin Triglycerides Cholesterol LDL Cholesterol Direct HDL Cholesterol Urine pH Urine WBC (Auto) Urine Creatinine Urine Total Protein Fluid Total Protein Vancomycin Trough Rheumatoid Factor Complement C4 Miscellaneous Test Crossmatch 10/17/16 10/18/16 10/18/16 23:17 04:00 04:00 WBC 20.7 H RBC 2.47 L Hgb 7.4 L Hct 22.9 L MCV MCH MCHC RDW 17.5 H Plt Count Lymph % (Auto) [place]ke % (Auto) Lymph # [place] # Baso # Seg Neutrophils % Seg Neuts % (Manual) Lymphocytes % (Manual) Monocytes % (Manual) Eosinophils % (Manual) Basophils % (Manual) Nucleated RBC % Seg Neutrophils # Seg Neutrophils # Man Lymphocytes # (Manual) Monocytes # (Manual) Eosinophils # (Manual) Basophils # (Manual) PT INR Fibrinogen dRVVT Confirm Interp Factor V Activity POC ABG pH POC ABG pCO2 POC ABG pO2 ABG pO2 ABG HCO3 ABG Base Excess ABG Hemoglobin Oxyhemoglobin Sodium 149 H Potassium Chloride 107.9 H Carbon Dioxide 20 L BUN 117 H Creatinine 3.2 H Glucose 119 H POC Glucose 121 H Lactic Acid Calcium Phosphorus Magnesium Direct Bilirubin AST ALT Alkaline Phosphatase Lactate Dehydrogenase Troponin T C-Reactive Protein Total Protein Albumin Prealbumin Triglycerides Cholesterol LDL Cholesterol Direct HDL Cholesterol Urine pH Urine WBC (Auto) Urine Creatinine Urine Total Protein Fluid Total Protein Vancomycin Trough Rheumatoid Factor Complement C4 Miscellaneous Test Crossmatch 10/18/16 10/18/16 10/18/16 05:23 10:46 17:30 WBC RBC Hgb Hct MCV MCH MCHC RDW Plt Count Lymph % (Auto) [place] % (Auto) Lymph # [place] # Baso # Seg Neutrophils % Seg Neuts % (Manual) Lymphocytes % (Manual) Monocytes % (Manual) Eosinophils % (Manual) Basophils % (Manual) Nucleated RBC % Seg Neutrophils # Seg Neutrophils # Man Lymphocytes # (Manual) Monocytes # (Manual) Eosinophils # (Manual) Basophils # (Manual) PT INR Fibrinogen dRVVT Confirm Interp Factor V Activity POC ABG pH POC ABG pCO2 POC ABG pO2 ABG pO2 ABG HCO3 ABG Base Excess ABG Hemoglobin Oxyhemoglobin Sodium Potassium Chloride Carbon Dioxide BUN Creatinine Glucose POC Glucose 119 H 155 H 124 H Lactic Acid Calcium Phosphorus Magnesium Direct Bilirubin AST ALT Alkaline Phosphatase Lactate Dehydrogenase Troponin T C-Reactive Protein Total Protein Albumin Prealbumin Triglycerides Cholesterol LDL Cholesterol Direct HDL Cholesterol Urine pH Urine WBC (Auto) Urine Creatinine Urine Total Protein Fluid Total Protein Vancomycin Trough Rheumatoid Factor Complement C4 Miscellaneous Test Crossmatch 10/19/16 10/19/16 10/19/16 04:00 04:00 05:25 WBC 17.4 H RBC 2.54 L Hgb 7.7 L Hct 23.6 L MCV MCH MCHC RDW 17.3 H Plt Count Lymph % (Auto) [place] % (Auto) Lymph # [place] # Baso # Seg Neutrophils % Seg Neuts % (Manual) Lymphocytes % (Manual) Monocytes % (Manual) Eosinophils % (Manual) Basophils % (Manual) Nucleated RBC % Seg Neutrophils # Seg Neutrophils # Man Lymphocytes # (Manual) Monocytes # (Manual) Eosinophils # (Manual) Basophils # (Manual) PT INR Fibrinogen dRVVT Confirm Interp Factor V Activity POC ABG pH POC ABG pCO2 POC ABG pO2 ABG pO2 ABG HCO3 ABG Base Excess ABG Hemoglobin Oxyhemoglobin Sodium Potassium Chloride Carbon Dioxide BUN 72 H Creatinine 2.1 H Glucose 116 H POC Glucose 119 H Lactic Acid Calcium Phosphorus Magnesium Direct Bilirubin AST ALT Alkaline Phosphatase Lactate Dehydrogenase Troponin T C-Reactive Protein Total Protein Albumin Prealbumin Triglycerides Cholesterol LDL Cholesterol Direct HDL Cholesterol Urine pH Urine WBC (Auto) Urine Creatinine Urine Total Protein Fluid Total Protein Vancomycin Trough Rheumatoid Factor Complement C4 Miscellaneous Test Crossmatch 10/19/16 10/19/16 10/20/16 11:46 23:59 06:00 WBC RBC Hgb Hct MCV MCH MCHC RDW Plt Count Lymph % (Auto) [place] % (Auto) Lymph # [place] # Baso # Seg Neutrophils % Seg Neuts % (Manual) Lymphocytes % (Manual) Monocytes % (Manual) Eosinophils % (Manual) Basophils % (Manual) Nucleated RBC % Seg Neutrophils # Seg Neutrophils # Man Lymphocytes # (Manual) Monocytes # (Manual) Eosinophils # (Manual) Basophils # (Manual) PT INR Fibrinogen dRVVT Confirm Interp Factor V Activity POC ABG pH POC ABG pCO2 POC ABG pO2 ABG pO2 ABG HCO3 ABG Base Excess ABG Hemoglobin Oxyhemoglobin Sodium Potassium Chloride Carbon Dioxide 17 L BUN 94 H Creatinine 2.7 H Glucose POC Glucose 116 H 117 H Lactic Acid Calcium Phosphorus Magnesium Direct Bilirubin AST ALT Alkaline Phosphatase Lactate Dehydrogenase Troponin T C-Reactive Protein Total Protein Albumin Prealbumin Triglycerides Cholesterol LDL Cholesterol Direct HDL Cholesterol Urine pH Urine WBC (Auto) Urine Creatinine Urine Total Protein Fluid Total Protein Vancomycin Trough Rheumatoid Factor Complement C4 Miscellaneous Test Crossmatch 10/20/16 10/20/16 10/20/16 06:00 11:49 16:00 WBC 19.7 H RBC 2.51 L Hgb 7.7 L Hct 23.5 L MCV MCH MCHC RDW 17.5 H Plt Count Lymph % (Auto) [place] % (Auto) Lymph # [place] # Baso # Seg Neutrophils % Seg Neuts % (Manual) Lymphocytes % (Manual) Monocytes % (Manual) Eosinophils % (Manual) Basophils % (Manual) Nucleated RBC % Seg Neutrophils # Seg Neutrophils # Man Lymphocytes # (Manual) Monocytes # (Manual) Eosinophils # (Manual) Basophils # (Manual) PT INR Fibrinogen dRVVT Confirm Interp Factor V Activity POC ABG pH POC ABG pCO2 POC ABG pO2 ABG pO2 ABG HCO3 ABG Base Excess ABG Hemoglobin Oxyhemoglobin Sodium Potassium Chloride Carbon Dioxide BUN Creatinine Glucose POC Glucose 117 H Lactic Acid Calcium Phosphorus Magnesium Direct Bilirubin AST ALT Alkaline Phosphatase Lactate Dehydrogenase Troponin T C-Reactive Protein Total Protein Albumin Prealbumin Triglycerides Cholesterol LDL Cholesterol Direct HDL Cholesterol Urine pH Urine WBC (Auto) Urine Creatinine Urine Total Protein Fluid Total Protein Vancomycin Trough Rheumatoid Factor Complement C4 Miscellaneous Test Flexitest 1 H Crossmatch 10/20/16 10/20/16 10/21/16 18:36 23:39 04:00 WBC RBC Hgb Hct MCV MCH MCHC RDW Plt Count Lymph % (Auto) [place] % (Auto) Lymph # [place] # Baso # Seg Neutrophils % Seg Neuts % (Manual) Lymphocytes % (Manual) Monocytes % (Manual) Eosinophils % (Manual) Basophils % (Manual) Nucleated RBC % Seg Neutrophils # Seg Neutrophils # Man Lymphocytes # (Manual) Monocytes # (Manual) Eosinophils # (Manual) Basophils # (Manual) PT INR Fibrinogen dRVVT Confirm Interp Factor V Activity POC ABG pH POC ABG pCO2 POC ABG pO2 ABG pO2 ABG HCO3 ABG Base Excess ABG Hemoglobin Oxyhemoglobin Sodium Potassium 5.4 H D Chloride Carbon Dioxide 15 L BUN 110 H Creatinine 3.0 H Glucose POC Glucose 127 H 114 H Lactic Acid Calcium Phosphorus Magnesium Direct Bilirubin AST ALT Alkaline Phosphatase Lactate Dehydrogenase Troponin T C-Reactive Protein Total Protein Albumin Prealbumin Triglycerides Cholesterol LDL Cholesterol Direct HDL Cholesterol Urine pH Urine WBC (Auto) Urine Creatinine Urine Total Protein Fluid Total Protein Vancomycin Trough Rheumatoid Factor Complement C4 Miscellaneous Test Crossmatch 10/21/16 10/21/16 10/22/16 05:54 23:46 05:18 WBC RBC Hgb Hct MCV MCH MCHC RDW Plt Count Lymph % (Auto) [place] % (Auto) Lymph # [place] # Baso # Seg Neutrophils % Seg Neuts % (Manual) Lymphocytes % (Manual) Monocytes % (Manual) Eosinophils % (Manual) Basophils % (Manual) Nucleated RBC % Seg Neutrophils # Seg Neutrophils # Man Lymphocytes # (Manual) Monocytes # (Manual) Eosinophils # (Manual) Basophils # (Manual) PT INR Fibrinogen dRVVT Confirm Interp Factor V Activity POC ABG pH POC ABG pCO2 POC ABG pO2 ABG pO2 ABG HCO3 ABG Base Excess ABG Hemoglobin Oxyhemoglobin Sodium Potassium Chloride Carbon Dioxide BUN Creatinine Glucose POC Glucose 119 H 108 H 109 H Lactic Acid Calcium Phosphorus Magnesium Direct Bilirubin AST ALT Alkaline Phosphatase Lactate Dehydrogenase Troponin T C-Reactive Protein Total Protein Albumin Prealbumin Triglycerides Cholesterol LDL Cholesterol Direct HDL Cholesterol Urine pH Urine WBC (Auto) Urine Creatinine Urine Total Protein Fluid Total Protein Vancomycin Trough Rheumatoid Factor Complement C4 Miscellaneous Test Crossmatch 10/22/16 10/22/16 10/22/16 06:40 06:40 06:40 WBC 14.0 H RBC 2.03 L Hgb 7.0 L Hct 20.5 L MCV 98 H MCH 34 H MCHC 35 H RDW 17.8 H Plt Count Lymph % (Auto) [place]ke % (Auto) 9.9 H Lymph # [place]ke # 1.4 H Baso # 0.2 H Seg Neutrophils % 72.0 H Seg Neuts % (Manual) Lymphocytes % (Manual) Monocytes % (Manual) Eosinophils % (Manual) Basophils % (Manual) Nucleated RBC % Seg Neutrophils # 10.0 H Seg Neutrophils # Man Lymphocytes # (Manual) Monocytes # (Manual) Eosinophils # (Manual) Basophils # (Manual) PT INR Fibrinogen dRVVT Confirm Interp Factor V Activity POC ABG pH POC ABG pCO2 POC ABG pO2 ABG pO2 ABG HCO3 ABG Base Excess ABG Hemoglobin Oxyhemoglobin Sodium 130 L D Potassium Chloride 92.4 L Carbon Dioxide 20 L BUN 50 H Creatinine 1.6 H Glucose 589 H* POC Glucose Lactic Acid Calcium 7.8 L D Phosphorus Magnesium 1.60 L Direct Bilirubin AST ALT Alkaline Phosphatase Lactate Dehydrogenase Troponin T C-Reactive Protein Total Protein Albumin Prealbumin Triglycerides Cholesterol LDL Cholesterol Direct HDL Cholesterol Urine pH Urine WBC (Auto) Urine Creatinine Urine Total Protein Fluid Total Protein Vancomycin Trough Rheumatoid Factor Complement C4 Miscellaneous Test Crossmatch 10/22/16 10/22/16 10/22/16 11:39 16:44 23:36 WBC RBC Hgb Hct MCV MCH MCHC RDW Plt Count Lymph % (Auto) [place]ke % (Auto) Lymph # [place] # Baso # Seg Neutrophils % Seg Neuts % (Manual) Lymphocytes % (Manual) Monocytes % (Manual) Eosinophils % (Manual) Basophils % (Manual) Nucleated RBC % Seg Neutrophils # Seg Neutrophils # Man Lymphocytes # (Manual) Monocytes # (Manual) Eosinophils # (Manual) Basophils # (Manual) PT INR Fibrinogen dRVVT Confirm Interp Factor V Activity POC ABG pH POC ABG pCO2 POC ABG pO2 ABG pO2 ABG HCO3 ABG Base Excess ABG Hemoglobin Oxyhemoglobin Sodium Potassium Chloride Carbon Dioxide BUN Creatinine Glucose POC Glucose 142 H 163 H 123 H Lactic Acid Calcium Phosphorus Magnesium Direct Bilirubin AST ALT Alkaline Phosphatase Lactate Dehydrogenase Troponin T C-Reactive Protein Total Protein Albumin Prealbumin Triglycerides Cholesterol LDL Cholesterol Direct HDL Cholesterol Urine pH Urine WBC (Auto) Urine Creatinine Urine Total Protein Fluid Total Protein Vancomycin Trough Rheumatoid Factor Complement C4 Miscellaneous Test Crossmatch 10/23/16 10/23/16 10/23/16 04:58 06:00 12:12 WBC RBC Hgb Hct MCV MCH MCHC RDW Plt Count Lymph % (Auto) [place] % (Auto) Lymph # [place] # Baso # Seg Neutrophils % Seg Neuts % (Manual) Lymphocytes % (Manual) Monocytes % (Manual) Eosinophils % (Manual) Basophils % (Manual) Nucleated RBC % Seg Neutrophils # Seg Neutrophils # Man Lymphocytes # (Manual) Monocytes # (Manual) Eosinophils # (Manual) Basophils # (Manual) PT INR Fibrinogen dRVVT Confirm Interp Factor V Activity POC ABG pH POC ABG pCO2 POC ABG pO2 ABG pO2 ABG HCO3 ABG Base Excess ABG Hemoglobin Oxyhemoglobin Sodium 133 L Potassium 3.5 L Chloride 96.1 L Carbon Dioxide 18 L BUN 76 H Creatinine 2.1 H Glucose POC Glucose 133 H 138 H Lactic Acid Calcium 8.3 L Phosphorus Magnesium Direct Bilirubin AST ALT Alkaline Phosphatase Lactate Dehydrogenase Troponin T C-Reactive Protein Total Protein Albumin Prealbumin Triglycerides Cholesterol LDL Cholesterol Direct HDL Cholesterol Urine pH Urine WBC (Auto) Urine Creatinine Urine Total Protein Fluid Total Protein Vancomycin Trough Rheumatoid Factor Complement C4 Miscellaneous Test Crossmatch 10/23/16 10/23/16 10/24/16 16:53 23:37 04:00 WBC RBC Hgb Hct MCV MCH MCHC RDW Plt Count Lymph % (Auto) [place] % (Auto) Lymph # [place] # Baso # Seg Neutrophils % Seg Neuts % (Manual) Lymphocytes % (Manual) Monocytes % (Manual) Eosinophils % (Manual) Basophils % (Manual) Nucleated RBC % Seg Neutrophils # Seg Neutrophils # Man Lymphocytes # (Manual) Monocytes # (Manual) Eosinophils # (Manual) Basophils # (Manual) PT INR Fibrinogen dRVVT Confirm Interp Factor V Activity POC ABG pH POC ABG pCO2 POC ABG pO2 ABG pO2 ABG HCO3 ABG Base Excess ABG Hemoglobin Oxyhemoglobin Sodium 131 L Potassium Chloride 94.5 L Carbon Dioxide 19 L BUN 97 H Creatinine 2.6 H Glucose 110 H POC Glucose 125 H 123 H Lactic Acid Calcium 8.3 L Phosphorus Magnesium Direct Bilirubin AST ALT Alkaline Phosphatase Lactate Dehydrogenase Troponin T C-Reactive Protein Total Protein Albumin Prealbumin Triglycerides Cholesterol LDL Cholesterol Direct HDL Cholesterol Urine pH Urine WBC (Auto) Urine Creatinine Urine Total Protein Fluid Total Protein Vancomycin Trough Rheumatoid Factor Complement C4 Miscellaneous Test Crossmatch 10/24/16 10/24/16 10/24/16 07:49 11:39 17:52 WBC RBC Hgb 6.0 L Hct 19.7 L* MCV MCH MCHC RDW Plt Count Lymph % (Auto) [place] % (Auto) Lymph # [place] # Baso # Seg Neutrophils % Seg Neuts % (Manual) Lymphocytes % (Manual) Monocytes % (Manual) Eosinophils % (Manual) Basophils % (Manual) Nucleated RBC % Seg Neutrophils # Seg Neutrophils # Man Lymphocytes # (Manual) Monocytes # (Manual) Eosinophils # (Manual) Basophils # (Manual) PT INR Fibrinogen dRVVT Confirm Interp Factor V Activity POC ABG pH POC ABG pCO2 POC ABG pO2 ABG pO2 ABG HCO3 ABG Base Excess ABG Hemoglobin Oxyhemoglobin Sodium Potassium Chloride Carbon Dioxide BUN Creatinine Glucose POC Glucose 106 H 158 H Lactic Acid Calcium Phosphorus Magnesium Direct Bilirubin AST ALT Alkaline Phosphatase Lactate Dehydrogenase Troponin T C-Reactive Protein Total Protein Albumin Prealbumin Triglycerides Cholesterol LDL Cholesterol Direct HDL Cholesterol Urine pH Urine WBC (Auto) Urine Creatinine Urine Total Protein Fluid Total Protein Vancomycin Trough Rheumatoid Factor Complement C4 Miscellaneous Test Crossmatch 10/24/16 10/24/16 10/24/16 20:00 22:27 Unknown WBC RBC Hgb 9.4 L D Hct 27.5 L D MCV MCH MCHC RDW Plt Count Lymph % (Auto) [place] % (Auto) Lymph # [place] # Baso # Seg Neutrophils % Seg Neuts % (Manual) Lymphocytes % (Manual) Monocytes % (Manual) Eosinophils % (Manual) Basophils % (Manual) Nucleated RBC % Seg Neutrophils # Seg Neutrophils # Man Lymphocytes # (Manual) Monocytes # (Manual) Eosinophils # (Manual) Basophils # (Manual) PT INR Fibrinogen dRVVT Confirm Interp Factor V Activity POC ABG pH POC ABG pCO2 POC ABG pO2 ABG pO2 ABG HCO3 ABG Base Excess ABG Hemoglobin Oxyhemoglobin Sodium Potassium Chloride Carbon Dioxide BUN Creatinine Glucose POC Glucose 125 H Lactic Acid Calcium Phosphorus Magnesium Direct Bilirubin AST ALT Alkaline Phosphatase Lactate Dehydrogenase Troponin T C-Reactive Protein Total Protein Albumin Prealbumin Triglycerides Cholesterol LDL Cholesterol Direct HDL Cholesterol Urine pH Urine WBC (Auto) Urine Creatinine Urine Total Protein Fluid Total Protein Vancomycin Trough Rheumatoid Factor Complement C4 Miscellaneous Test Crossmatch See Detail 10/25/16 10/25/16 10/25/16 04:00 04:00 04:00 WBC 14.2 H RBC 2.98 L Hgb 9.0 L Hct 26.2 L MCV MCH MCHC RDW 16.6 H Plt Count Lymph % (Auto) [place]ke % (Auto) 10.7 H Lymph # [place] # 1.5 H Baso # Seg Neutrophils % 73.6 H Seg Neuts % (Manual) Lymphocytes % (Manual) Monocytes % (Manual) Eosinophils % (Manual) Basophils % (Manual) Nucleated RBC % Seg Neutrophils # 10.5 H Seg Neutrophils # Man Lymphocytes # (Manual) Monocytes # (Manual) Eosinophils # (Manual) Basophils # (Manual) PT INR Fibrinogen dRVVT Confirm Interp Factor V Activity POC ABG pH POC ABG pCO2 POC ABG pO2 ABG pO2 ABG HCO3 ABG Base Excess ABG Hemoglobin Oxyhemoglobin Sodium 132 L Potassium Chloride 94.7 L Carbon Dioxide BUN 51 H Creatinine 1.6 H Glucose 130 H POC Glucose Lactic Acid Calcium 8.3 L Phosphorus 1.60 L D Magnesium Direct Bilirubin AST ALT Alkaline Phosphatase Lactate Dehydrogenase Troponin T C-Reactive Protein Total Protein Albumin Prealbumin Triglycerides Cholesterol LDL Cholesterol Direct HDL Cholesterol Urine pH Urine WBC (Auto) Urine Creatinine Urine Total Protein Fluid Total Protein Vancomycin Trough Rheumatoid Factor Complement C4 Miscellaneous Test Crossmatch 10/25/16 10/25/16 10/25/16 04:32 11:48 17:22 WBC RBC Hgb Hct MCV MCH MCHC RDW Plt Count Lymph % (Auto) [place] % (Auto) Lymph # [place] # Baso # Seg Neutrophils % Seg Neuts % (Manual) Lymphocytes % (Manual) Monocytes % (Manual) Eosinophils % (Manual) Basophils % (Manual) Nucleated RBC % Seg Neutrophils # Seg Neutrophils # Man Lymphocytes # (Manual) Monocytes # (Manual) Eosinophils # (Manual) Basophils # (Manual) PT INR Fibrinogen dRVVT Confirm Interp Factor V Activity POC ABG pH POC ABG pCO2 POC ABG pO2 ABG pO2 ABG HCO3 ABG Base Excess ABG Hemoglobin Oxyhemoglobin Sodium Potassium Chloride Carbon Dioxide BUN Creatinine Glucose POC Glucose 124 H 171 H 120 H Lactic Acid Calcium Phosphorus Magnesium Direct Bilirubin AST ALT Alkaline Phosphatase Lactate Dehydrogenase Troponin T C-Reactive Protein Total Protein Albumin Prealbumin Triglycerides Cholesterol LDL Cholesterol Direct HDL Cholesterol Urine pH Urine WBC (Auto) Urine Creatinine Urine Total Protein Fluid Total Protein Vancomycin Trough Rheumatoid Factor Complement C4 Miscellaneous Test Crossmatch 10/26/16 10/26/16 10/26/16 04:54 07:06 07:06 WBC 16.9 H RBC 3.06 L Hgb 9.1 L Hct 26.9 L MCV MCH MCHC RDW 16.9 H Plt Count Lymph % (Auto) [place] % (Auto) Lymph # [place] # Baso # Seg Neutrophils % Seg Neuts % (Manual) 71.0 H Lymphocytes % (Manual) 5.0 L Monocytes % (Manual) 12.0 H Eosinophils % (Manual) Basophils % (Manual) Nucleated RBC % Seg Neutrophils # Seg Neutrophils # Man 12.0 H Lymphocytes # (Manual) 0.8 L Monocytes # (Manual) 2.0 H Eosinophils # (Manual) Basophils # (Manual) PT INR Fibrinogen dRVVT Confirm Interp Factor V Activity POC ABG pH POC ABG pCO2 POC ABG pO2 ABG pO2 ABG HCO3 ABG Base Excess ABG Hemoglobin Oxyhemoglobin Sodium 135 L Potassium Chloride 97.1 L Carbon Dioxide BUN 73 H Creatinine 2.2 H Glucose 117 H POC Glucose 123 H Lactic Acid Calcium Phosphorus 1.70 L Magnesium Direct Bilirubin AST ALT Alkaline Phosphatase Lactate Dehydrogenase Troponin T C-Reactive Protein Total Protein Albumin Prealbumin Triglycerides Cholesterol LDL Cholesterol Direct HDL Cholesterol Urine pH Urine WBC (Auto) Urine Creatinine Urine Total Protein Fluid Total Protein Vancomycin Trough Rheumatoid Factor Complement C4 Miscellaneous Test Crossmatch 10/26/16 10/26/16 10/26/16 12:12 17:29 23:42 WBC RBC Hgb Hct MCV MCH MCHC RDW Plt Count Lymph % (Auto) [place] % (Auto) Lymph # [place] # Baso # Seg Neutrophils % Seg Neuts % (Manual) Lymphocytes % (Manual) Monocytes % (Manual) Eosinophils % (Manual) Basophils % (Manual) Nucleated RBC % Seg Neutrophils # Seg Neutrophils # Man Lymphocytes # (Manual) Monocytes # (Manual) Eosinophils # (Manual) Basophils # (Manual) PT INR Fibrinogen dRVVT Confirm Interp Factor V Activity POC ABG pH POC ABG pCO2 POC ABG pO2 ABG pO2 ABG HCO3 ABG Base Excess ABG Hemoglobin Oxyhemoglobin Sodium Potassium Chloride Carbon Dioxide BUN Creatinine Glucose POC Glucose 126 H 161 H 118 H Lactic Acid Calcium Phosphorus Magnesium Direct Bilirubin AST ALT Alkaline Phosphatase Lactate Dehydrogenase Troponin T C-Reactive Protein Total Protein Albumin Prealbumin Triglycerides Cholesterol LDL Cholesterol Direct HDL Cholesterol Urine pH Urine WBC (Auto) Urine Creatinine Urine Total Protein Fluid Total Protein Vancomycin Trough Rheumatoid Factor Complement C4 Miscellaneous Test Crossmatch 10/27/16 10/27/16 10/27/16 05:03 06:30 06:30 WBC 13.9 H RBC 3.09 L Hgb 9.2 L Hct 27.5 L MCV MCH MCHC RDW 17.0 H Plt Count Lymph % (Auto) [place] % (Auto) Lymph # [place] # Baso # Seg Neutrophils % Seg Neuts % (Manual) 78.0 H Lymphocytes % (Manual) Monocytes % (Manual) Eosinophils % (Manual) Basophils % (Manual) Nucleated RBC % 2.0 H Seg Neutrophils # Seg Neutrophils # Man 10.8 H Lymphocytes # (Manual) Monocytes # (Manual) 1.0 H Eosinophils # (Manual) Basophils # (Manual) PT INR Fibrinogen dRVVT Confirm Interp Factor V Activity POC ABG pH POC ABG pCO2 POC ABG pO2 ABG pO2 ABG HCO3 ABG Base Excess ABG Hemoglobin Oxyhemoglobin Sodium Potassium Chloride Carbon Dioxide BUN 40 H Creatinine 1.5 H Glucose 135 H POC Glucose 107 H Lactic Acid Calcium 8.3 L Phosphorus 1.30 L D Magnesium Direct Bilirubin AST ALT Alkaline Phosphatase Lactate Dehydrogenase Troponin T C-Reactive Protein Total Protein Albumin Prealbumin Triglycerides Cholesterol LDL Cholesterol Direct HDL Cholesterol Urine pH Urine WBC (Auto) Urine Creatinine Urine Total Protein Fluid Total Protein Vancomycin Trough Rheumatoid Factor Complement C4 Miscellaneous Test Crossmatch 10/27/16 10/27/16 10/27/16 13:27 18:07 23:40 WBC RBC Hgb Hct MCV MCH MCHC RDW Plt Count Lymph % (Auto) [place] % (Auto) Lymph # [place] # Baso # Seg Neutrophils % Seg Neuts % (Manual) Lymphocytes % (Manual) Monocytes % (Manual) Eosinophils % (Manual) Basophils % (Manual) Nucleated RBC % Seg Neutrophils # Seg Neutrophils # Man Lymphocytes # (Manual) Monocytes # (Manual) Eosinophils # (Manual) Basophils # (Manual) PT INR Fibrinogen dRVVT Confirm Interp Factor V Activity POC ABG pH POC ABG pCO2 POC ABG pO2 ABG pO2 ABG HCO3 ABG Base Excess ABG Hemoglobin Oxyhemoglobin Sodium Potassium Chloride Carbon Dioxide BUN Creatinine Glucose POC Glucose 117 H 121 H 118 H Lactic Acid Calcium Phosphorus Magnesium Direct Bilirubin AST ALT Alkaline Phosphatase Lactate Dehydrogenase Troponin T C-Reactive Protein Total Protein Albumin Prealbumin Triglycerides Cholesterol LDL Cholesterol Direct HDL Cholesterol Urine pH Urine WBC (Auto) Urine Creatinine Urine Total Protein Fluid Total Protein Vancomycin Trough Rheumatoid Factor Complement C4 Miscellaneous Test Crossmatch 10/28/16 10/28/16 10/28/16 05:48 06:45 06:45 WBC 14.7 H RBC 3.05 L Hgb 9.0 L Hct 26.9 L MCV MCH MCHC RDW 16.8 H Plt Count Lymph % (Auto) 8.2 L [place] % (Auto) 8.4 H Lymph # [place] # 1.2 H Baso # Seg Neutrophils % 81.9 H Seg Neuts % (Manual) Lymphocytes % (Manual) Monocytes % (Manual) Eosinophils % (Manual) Basophils % (Manual) Nucleated RBC % Seg Neutrophils # 12.1 H Seg Neutrophils # Man Lymphocytes # (Manual) Monocytes # (Manual) Eosinophils # (Manual) Basophils # (Manual) PT INR Fibrinogen dRVVT Confirm Interp Factor V Activity POC ABG pH POC ABG pCO2 POC ABG pO2 ABG pO2 ABG HCO3 ABG Base Excess ABG Hemoglobin Oxyhemoglobin Sodium Potassium Chloride Carbon Dioxide BUN 60 H Creatinine 1.9 H Glucose 120 H POC Glucose 114 H Lactic Acid Calcium Phosphorus Magnesium Direct Bilirubin AST ALT Alkaline Phosphatase Lactate Dehydrogenase Troponin T C-Reactive Protein Total Protein Albumin Prealbumin Triglycerides Cholesterol LDL Cholesterol Direct HDL Cholesterol Urine pH Urine WBC (Auto) Urine Creatinine Urine Total Protein Fluid Total Protein Vancomycin Trough Rheumatoid Factor Complement C4 Miscellaneous Test Crossmatch 10/28/16 10/28/16 10/29/16 17:08 23:50 05:10 WBC RBC Hgb Hct MCV MCH MCHC RDW Plt Count Lymph % (Auto) [place] % (Auto) Lymph # [place] # Baso # Seg Neutrophils % Seg Neuts % (Manual) Lymphocytes % (Manual) Monocytes % (Manual) Eosinophils % (Manual) Basophils % (Manual) Nucleated RBC % Seg Neutrophils # Seg Neutrophils # Man Lymphocytes # (Manual) Monocytes # (Manual) Eosinophils # (Manual) Basophils # (Manual) PT INR Fibrinogen dRVVT Confirm Interp Factor V Activity POC ABG pH POC ABG pCO2 POC ABG pO2 ABG pO2 ABG HCO3 ABG Base Excess ABG Hemoglobin Oxyhemoglobin Sodium Potassium Chloride Carbon Dioxide BUN Creatinine Glucose POC Glucose 109 H 110 H 124 H Lactic Acid Calcium Phosphorus Magnesium Direct Bilirubin AST ALT Alkaline Phosphatase Lactate Dehydrogenase Troponin T C-Reactive Protein Total Protein Albumin Prealbumin Triglycerides Cholesterol LDL Cholesterol Direct HDL Cholesterol Urine pH Urine WBC (Auto) Urine Creatinine Urine Total Protein Fluid Total Protein Vancomycin Trough Rheumatoid Factor Complement C4 Miscellaneous Test Crossmatch 10/29/16 10/29/16 10/29/16 07:45 07:45 12:19 WBC 14.7 H RBC 3.15 L Hgb 9.3 L Hct 28.9 L MCV MCH MCHC RDW 17.0 H Plt Count Lymph % (Auto) 11.9 L [place] % (Auto) 8.6 H Lymph # [place] # 1.3 H Baso # Seg Neutrophils % 78.1 H Seg Neuts % (Manual) Lymphocytes % (Manual) Monocytes % (Manual) Eosinophils % (Manual) Basophils % (Manual) Nucleated RBC % Seg Neutrophils # 11.4 H Seg Neutrophils # Man Lymphocytes # (Manual) Monocytes # (Manual) Eosinophils # (Manual) Basophils # (Manual) PT INR Fibrinogen dRVVT Confirm Interp Factor V Activity POC ABG pH POC ABG pCO2 POC ABG pO2 ABG pO2 ABG HCO3 ABG Base Excess ABG Hemoglobin Oxyhemoglobin Sodium Potassium 5.1 H Chloride Carbon Dioxide 19 L BUN 78 H Creatinine 2.2 H Glucose 116 H POC Glucose 118 H Lactic Acid Calcium Phosphorus Magnesium Direct Bilirubin AST ALT Alkaline Phosphatase Lactate Dehydrogenase Troponin T C-Reactive Protein Total Protein Albumin Prealbumin Triglycerides Cholesterol LDL Cholesterol Direct HDL Cholesterol Urine pH Urine WBC (Auto) Urine Creatinine Urine Total Protein Fluid Total Protein Vancomycin Trough Rheumatoid Factor Complement C4 Miscellaneous Test Crossmatch 10/29/16 10/30/16 10/30/16 17:49 01:52 03:28 WBC RBC Hgb Hct MCV MCH MCHC RDW Plt Count Lymph % (Auto) [place] % (Auto) Lymph # [place] # Baso # Seg Neutrophils % Seg Neuts % (Manual) Lymphocytes % (Manual) Monocytes % (Manual) Eosinophils % (Manual) Basophils % (Manual) Nucleated RBC % Seg Neutrophils # Seg Neutrophils # Man Lymphocytes # (Manual) Monocytes # (Manual) Eosinophils # (Manual) Basophils # (Manual) PT INR Fibrinogen dRVVT Confirm Interp Factor V Activity POC ABG pH POC ABG pCO2 POC ABG pO2 ABG pO2 ABG HCO3 ABG Base Excess ABG Hemoglobin Oxyhemoglobin Sodium Potassium 5.4 H Chloride 97.5 L Carbon Dioxide 19 L BUN 90 H Creatinine 2.5 H Glucose POC Glucose 120 H 129 H Lactic Acid Calcium Phosphorus 5.20 H Magnesium Direct Bilirubin AST ALT Alkaline Phosphatase Lactate Dehydrogenase Troponin T C-Reactive Protein Total Protein Albumin Prealbumin Triglycerides Cholesterol LDL Cholesterol Direct HDL Cholesterol Urine pH Urine WBC (Auto) Urine Creatinine Urine Total Protein Fluid Total Protein Vancomycin Trough Rheumatoid Factor Complement C4 Miscellaneous Test Crossmatch 10/30/16 10/30/16 10/30/16 03:28 08:19 08:19 WBC 11.6 H 15.9 H RBC 2.75 L 2.82 L Hgb 7.9 L 8.3 L Hct 24.2 L 25.2 L MCV MCH MCHC RDW 16.7 H 17.2 H Plt Count Lymph % (Auto) [place] % (Auto) 9.8 H Lymph # [place] # 1.1 H Baso # Seg Neutrophils % 74.2 H Seg Neuts % (Manual) Lymphocytes % (Manual) Monocytes % (Manual) Eosinophils % (Manual) Basophils % (Manual) Nucleated RBC % Seg Neutrophils # 8.6 H Seg Neutrophils # Man Lymphocytes # (Manual) Monocytes # (Manual) Eosinophils # (Manual) Basophils # (Manual) PT INR Fibrinogen dRVVT Confirm Interp Factor V Activity POC ABG pH POC ABG pCO2 POC ABG pO2 ABG pO2 ABG HCO3 ABG Base Excess ABG Hemoglobin Oxyhemoglobin Sodium Potassium 5.3 H Chloride 97.4 L Carbon Dioxide 19 L BUN 93 H Creatinine 2.6 H Glucose POC Glucose Lactic Acid Calcium Phosphorus Magnesium Direct Bilirubin AST ALT Alkaline Phosphatase Lactate Dehydrogenase Troponin T C-Reactive Protein Total Protein Albumin Prealbumin Triglycerides Cholesterol LDL Cholesterol Direct HDL Cholesterol Urine pH Urine WBC (Auto) Urine Creatinine Urine Total Protein Fluid Total Protein Vancomycin Trough Rheumatoid Factor Complement C4 Miscellaneous Test Crossmatch 10/30/16 10/30/16 10/31/16 17:11 23:56 00:40 WBC RBC Hgb Hct MCV MCH MCHC RDW Plt Count Lymph % (Auto) [place] % (Auto) Lymph # [place] # Baso # Seg Neutrophils % Seg Neuts % (Manual) Lymphocytes % (Manual) Monocytes % (Manual) Eosinophils % (Manual) Basophils % (Manual) Nucleated RBC % Seg Neutrophils # Seg Neutrophils # Man Lymphocytes # (Manual) Monocytes # (Manual) Eosinophils # (Manual) Basophils # (Manual) PT INR Fibrinogen dRVVT Confirm Interp Factor V Activity POC ABG pH POC ABG pCO2 POC ABG pO2 ABG pO2 ABG HCO3 ABG Base Excess ABG Hemoglobin Oxyhemoglobin Sodium Potassium Chloride Carbon Dioxide BUN Creatinine Glucose POC Glucose 106 H 117 H 120 H Lactic Acid Calcium Phosphorus Magnesium Direct Bilirubin AST ALT Alkaline Phosphatase Lactate Dehydrogenase Troponin T C-Reactive Protein Total Protein Albumin Prealbumin Triglycerides Cholesterol LDL Cholesterol Direct HDL Cholesterol Urine pH Urine WBC (Auto) Urine Creatinine Urine Total Protein Fluid Total Protein Vancomycin Trough Rheumatoid Factor Complement C4 Miscellaneous Test Crossmatch 10/31/16 10/31/16 10/31/16 05:43 07:15 07:15 WBC 12.1 H RBC 2.63 L Hgb 7.7 L Hct 23.3 L MCV MCH MCHC RDW 16.7 H Plt Count Lymph % (Auto) 11.7 L [place] % (Auto) 7.7 H Lymph # [place] # 0.9 H Baso # Seg Neutrophils % 78.0 H Seg Neuts % (Manual) Lymphocytes % (Manual) Monocytes % (Manual) Eosinophils % (Manual) Basophils % (Manual) Nucleated RBC % Seg Neutrophils # 9.4 H Seg Neutrophils # Man Lymphocytes # (Manual) Monocytes # (Manual) Eosinophils # (Manual) Basophils # (Manual) PT INR Fibrinogen dRVVT Confirm Interp Factor V Activity POC ABG pH POC ABG pCO2 POC ABG pO2 ABG pO2 ABG HCO3 ABG Base Excess ABG Hemoglobin Oxyhemoglobin Sodium Potassium Chloride 96.4 L Carbon Dioxide 21 L BUN 99 H Creatinine 2.6 H Glucose 144 H POC Glucose 125 H Lactic Acid Calcium Phosphorus 4.80 H Magnesium Direct Bilirubin AST ALT Alkaline Phosphatase Lactate Dehydrogenase Troponin T C-Reactive Protein Total Protein Albumin Prealbumin Triglycerides Cholesterol LDL Cholesterol Direct HDL Cholesterol Urine pH Urine WBC (Auto) Urine Creatinine Urine Total Protein Fluid Total Protein Vancomycin Trough Rheumatoid Factor Complement C4 Miscellaneous Test Crossmatch 10/31/16 10/31/16 11/01/16 11:46 18:34 00:20 WBC RBC Hgb Hct MCV MCH MCHC RDW Plt Count Lymph % (Auto) [place] % (Auto) Lymph # [place] # Baso # Seg Neutrophils % Seg Neuts % (Manual) Lymphocytes % (Manual) Monocytes % (Manual) Eosinophils % (Manual) Basophils % (Manual) Nucleated RBC % Seg Neutrophils # Seg Neutrophils # Man Lymphocytes # (Manual) Monocytes # (Manual) Eosinophils # (Manual) Basophils # (Manual) PT INR Fibrinogen dRVVT Confirm Interp Factor V Activity POC ABG pH POC ABG pCO2 POC ABG pO2 ABG pO2 ABG HCO3 ABG Base Excess ABG Hemoglobin Oxyhemoglobin Sodium Potassium Chloride Carbon Dioxide BUN Creatinine Glucose POC Glucose 159 H 140 H 132 H Lactic Acid Calcium Phosphorus Magnesium Direct Bilirubin AST ALT Alkaline Phosphatase Lactate Dehydrogenase Troponin T C-Reactive Protein Total Protein Albumin Prealbumin Triglycerides Cholesterol LDL Cholesterol Direct HDL Cholesterol Urine pH Urine WBC (Auto) Urine Creatinine Urine Total Protein Fluid Total Protein Vancomycin Trough Rheumatoid Factor Complement C4 Miscellaneous Test Crossmatch 11/01/16 11/01/16 11/01/16 04:55 04:55 06:11 WBC 11.2 H RBC 2.68 L Hgb 7.5 L Hct 23.7 L MCV MCH MCHC RDW 16.1 H Plt Count Lymph % (Auto) [place] % (Auto) 9.8 H Lymph # [place] # 1.1 H Baso # Seg Neutrophils % 70.8 H Seg Neuts % (Manual) Lymphocytes % (Manual) Monocytes % (Manual) Eosinophils % (Manual) Basophils % (Manual) Nucleated RBC % Seg Neutrophils # 7.9 H Seg Neutrophils # Man Lymphocytes # (Manual) Monocytes # (Manual) Eosinophils # (Manual) Basophils # (Manual) PT INR Fibrinogen dRVVT Confirm Interp Factor V Activity POC ABG pH POC ABG pCO2 POC ABG pO2 ABG pO2 ABG HCO3 ABG Base Excess ABG Hemoglobin Oxyhemoglobin Sodium Potassium 3.3 L D Chloride Carbon Dioxide BUN 61 H Creatinine 1.9 H Glucose 114 H POC Glucose 115 H Lactic Acid Calcium Phosphorus 1.80 L D Magnesium Direct Bilirubin AST ALT Alkaline Phosphatase Lactate Dehydrogenase Troponin T C-Reactive Protein Total Protein Albumin Prealbumin Triglycerides Cholesterol LDL Cholesterol Direct HDL Cholesterol Urine pH Urine WBC (Auto) Urine Creatinine Urine Total Protein Fluid Total Protein Vancomycin Trough Rheumatoid Factor Complement C4 Miscellaneous Test Crossmatch 11/01/16 11/01/16 11/01/16 12:29 18:23 23:58 WBC RBC Hgb Hct MCV MCH MCHC RDW Plt Count Lymph % (Auto) [place] % (Auto) Lymph # [place] # Baso # Seg Neutrophils % Seg Neuts % (Manual) Lymphocytes % (Manual) Monocytes % (Manual) Eosinophils % (Manual) Basophils % (Manual) Nucleated RBC % Seg Neutrophils # Seg Neutrophils # Man Lymphocytes # (Manual) Monocytes # (Manual) Eosinophils # (Manual) Basophils # (Manual) PT INR Fibrinogen dRVVT Confirm Interp Factor V Activity POC ABG pH POC ABG pCO2 POC ABG pO2 ABG pO2 ABG HCO3 ABG Base Excess ABG Hemoglobin Oxyhemoglobin Sodium Potassium Chloride Carbon Dioxide BUN Creatinine Glucose POC Glucose 142 H 143 H 128 H Lactic Acid Calcium Phosphorus Magnesium Direct Bilirubin AST ALT Alkaline Phosphatase Lactate Dehydrogenase Troponin T C-Reactive Protein Total Protein Albumin Prealbumin Triglycerides Cholesterol LDL Cholesterol Direct HDL Cholesterol Urine pH Urine WBC (Auto) Urine Creatinine Urine Total Protein Fluid Total Protein Vancomycin Trough Rheumatoid Factor Complement C4 Miscellaneous Test Crossmatch 11/02/16 11/02/16 11/02/16 04:16 05:29 11:58 WBC RBC Hgb Hct MCV MCH MCHC RDW Plt Count Lymph % (Auto) [place] % (Auto) Lymph # [place] # Baso # Seg Neutrophils % Seg Neuts % (Manual) Lymphocytes % (Manual) Monocytes % (Manual) Eosinophils % (Manual) Basophils % (Manual) Nucleated RBC % Seg Neutrophils # Seg Neutrophils # Man Lymphocytes # (Manual) Monocytes # (Manual) Eosinophils # (Manual) Basophils # (Manual) PT INR Fibrinogen dRVVT Confirm Interp Factor V Activity POC ABG pH POC ABG pCO2 POC ABG pO2 ABG pO2 ABG HCO3 ABG Base Excess ABG Hemoglobin Oxyhemoglobin Sodium Potassium 3.1 L Chloride Carbon Dioxide BUN 73 H Creatinine 2.3 H Glucose 112 H POC Glucose 135 H 149 H Lactic Acid Calcium Phosphorus Magnesium Direct Bilirubin AST ALT Alkaline Phosphatase Lactate Dehydrogenase Troponin T C-Reactive Protein Total Protein Albumin Prealbumin Triglycerides Cholesterol LDL Cholesterol Direct HDL Cholesterol Urine pH Urine WBC (Auto) Urine Creatinine Urine Total Protein Fluid Total Protein Vancomycin Trough Rheumatoid Factor Complement C4 Miscellaneous Test Crossmatch 11/02/16 11/02/16 11/03/16 17:42 22:54 06:00 WBC RBC Hgb Hct MCV MCH MCHC RDW Plt Count Lymph % (Auto) [place] % (Auto) Lymph # [place] # Baso # Seg Neutrophils % Seg Neuts % (Manual) Lymphocytes % (Manual) Monocytes % (Manual) Eosinophils % (Manual) Basophils % (Manual) Nucleated RBC % Seg Neutrophils # Seg Neutrophils # Man Lymphocytes # (Manual) Monocytes # (Manual) Eosinophils # (Manual) Basophils # (Manual) PT INR Fibrinogen dRVVT Confirm Interp Factor V Activity POC ABG pH POC ABG pCO2 POC ABG pO2 ABG pO2 ABG HCO3 ABG Base Excess ABG Hemoglobin Oxyhemoglobin Sodium Potassium Chloride 96.7 L Carbon Dioxide BUN 41 H Creatinine 1.5 H Glucose 145 H POC Glucose 182 H 115 H Lactic Acid Calcium Phosphorus 1.60 L D Magnesium 1.50 L Direct Bilirubin AST ALT Alkaline Phosphatase Lactate Dehydrogenase Troponin T C-Reactive Protein Total Protein Albumin Prealbumin Triglycerides Cholesterol LDL Cholesterol Direct HDL Cholesterol Urine pH Urine WBC (Auto) Urine Creatinine Urine Total Protein Fluid Total Protein Vancomycin Trough Rheumatoid Factor Complement C4 Miscellaneous Test Crossmatch 11/03/16 11/03/16 11/03/16 11:53 17:45 23:37 WBC RBC Hgb Hct MCV MCH MCHC RDW Plt Count Lymph % (Auto) [place] % (Auto) Lymph # [place] # Baso # Seg Neutrophils % Seg Neuts % (Manual) Lymphocytes % (Manual) Monocytes % (Manual) Eosinophils % (Manual) Basophils % (Manual) Nucleated RBC % Seg Neutrophils # Seg Neutrophils # Man Lymphocytes # (Manual) Monocytes # (Manual) Eosinophils # (Manual) Basophils # (Manual) PT INR Fibrinogen dRVVT Confirm Interp Factor V Activity POC ABG pH POC ABG pCO2 POC ABG pO2 ABG pO2 ABG HCO3 ABG Base Excess ABG Hemoglobin Oxyhemoglobin Sodium Potassium Chloride Carbon Dioxide BUN Creatinine Glucose POC Glucose 131 H 134 H 113 H Lactic Acid Calcium Phosphorus Magnesium Direct Bilirubin AST ALT Alkaline Phosphatase Lactate Dehydrogenase Troponin T C-Reactive Protein Total Protein Albumin Prealbumin Triglycerides Cholesterol LDL Cholesterol Direct HDL Cholesterol Urine pH Urine WBC (Auto) Urine Creatinine Urine Total Protein Fluid Total Protein Vancomycin Trough Rheumatoid Factor Complement C4 Miscellaneous Test Crossmatch 11/04/16 11/04/16 11/04/16 05:41 06:00 12:10 WBC RBC Hgb Hct MCV MCH MCHC RDW Plt Count Lymph % (Auto) [place] % (Auto) Lymph # [place] # Baso # Seg Neutrophils % Seg Neuts % (Manual) Lymphocytes % (Manual) Monocytes % (Manual) Eosinophils % (Manual) Basophils % (Manual) Nucleated RBC % Seg Neutrophils # Seg Neutrophils # Man Lymphocytes # (Manual) Monocytes # (Manual) Eosinophils # (Manual) Basophils # (Manual) PT INR Fibrinogen dRVVT Confirm Interp Factor V Activity POC ABG pH POC ABG pCO2 POC ABG pO2 ABG pO2 ABG HCO3 ABG Base Excess ABG Hemoglobin Oxyhemoglobin Sodium Potassium Chloride 96.7 L Carbon Dioxide BUN 52 H Creatinine 1.9 H Glucose 126 H POC Glucose 137 H 191 H Lactic Acid Calcium Phosphorus Magnesium Direct Bilirubin AST ALT Alkaline Phosphatase Lactate Dehydrogenase Troponin T C-Reactive Protein Total Protein Albumin Prealbumin Triglycerides Cholesterol LDL Cholesterol Direct HDL Cholesterol Urine pH Urine WBC (Auto) Urine Creatinine Urine Total Protein Fluid Total Protein Vancomycin Trough Rheumatoid Factor Complement C4 Miscellaneous Test Crossmatch 11/04/16 11/05/16 11/05/16 22:57 03:10 05:10 WBC RBC Hgb Hct MCV MCH MCHC RDW Plt Count Lymph % (Auto) [place] % (Auto) Lymph # [place] # Baso # Seg Neutrophils % Seg Neuts % (Manual) Lymphocytes % (Manual) Monocytes % (Manual) Eosinophils % (Manual) Basophils % (Manual) Nucleated RBC % Seg Neutrophils # Seg Neutrophils # Man Lymphocytes # (Manual) Monocytes # (Manual) Eosinophils # (Manual) Basophils # (Manual) PT INR Fibrinogen dRVVT Confirm Interp Factor V Activity POC ABG pH POC ABG pCO2 POC ABG pO2 ABG pO2 ABG HCO3 ABG Base Excess ABG Hemoglobin Oxyhemoglobin Sodium 136 L Potassium Chloride 97.2 L Carbon Dioxide BUN 32 H Creatinine 1.3 H Glucose 123 H POC Glucose 125 H 108 H Lactic Acid Calcium 7.8 L Phosphorus Magnesium Direct Bilirubin AST ALT Alkaline Phosphatase Lactate Dehydrogenase Troponin T C-Reactive Protein Total Protein Albumin Prealbumin Triglycerides Cholesterol LDL Cholesterol Direct HDL Cholesterol Urine pH Urine WBC (Auto) Urine Creatinine Urine Total Protein Fluid Total Protein Vancomycin Trough Rheumatoid Factor Complement C4 Miscellaneous Test Crossmatch 11/05/16 11/05/16 11/05/16 12:23 13:09 13:25 WBC RBC Hgb Hct MCV MCH MCHC RDW Plt Count Lymph % (Auto) [place] % (Auto) Lymph # [place] # Baso # Seg Neutrophils % Seg Neuts % (Manual) Lymphocytes % (Manual) Monocytes % (Manual) Eosinophils % (Manual) Basophils % (Manual) Nucleated RBC % Seg Neutrophils # Seg Neutrophils # Man Lymphocytes # (Manual) Monocytes # (Manual) Eosinophils # (Manual) Basophils # (Manual) PT INR Fibrinogen dRVVT Confirm Interp Factor V Activity POC ABG pH POC ABG pCO2 POC ABG pO2 ABG pO2 ABG HCO3 ABG Base Excess ABG Hemoglobin Oxyhemoglobin Sodium Potassium Chloride Carbon Dioxide BUN Creatinine Glucose POC Glucose 124 H Lactic Acid Calcium Phosphorus Magnesium Direct Bilirubin AST ALT Alkaline Phosphatase Lactate Dehydrogenase Troponin T C-Reactive Protein 11.40 H Total Protein Albumin Prealbumin Triglycerides Cholesterol LDL Cholesterol Direct HDL Cholesterol Urine pH 9.0 H Urine WBC (Auto) Urine Creatinine Urine Total Protein Fluid Total Protein Vancomycin Trough Rheumatoid Factor Complement C4 Miscellaneous Test Crossmatch 11/05/16 11/05/16 11/05/16 13:25 17:54 23:42 WBC RBC Hgb Hct MCV MCH MCHC RDW Plt Count Lymph % (Auto) [place] % (Auto) Lymph # [place] # Baso # Seg Neutrophils % Seg Neuts % (Manual) Lymphocytes % (Manual) Monocytes % (Manual) Eosinophils % (Manual) Basophils % (Manual) Nucleated RBC % Seg Neutrophils # Seg Neutrophils # Man Lymphocytes # (Manual) Monocytes # (Manual) Eosinophils # (Manual) Basophils # (Manual) PT INR Fibrinogen dRVVT Confirm Interp Factor V Activity POC ABG pH POC ABG pCO2 POC ABG pO2 ABG pO2 ABG HCO3 ABG Base Excess ABG Hemoglobin Oxyhemoglobin Sodium Potassium Chloride Carbon Dioxide BUN Creatinine Glucose POC Glucose 114 H 134 H Lactic Acid Calcium Phosphorus Magnesium Direct Bilirubin AST ALT Alkaline Phosphatase Lactate Dehydrogenase Troponin T C-Reactive Protein Total Protein Albumin Prealbumin Triglycerides Cholesterol LDL Cholesterol Direct HDL Cholesterol Urine pH Urine WBC (Auto) Urine Creatinine Urine Total Protein Fluid Total Protein Vancomycin Trough Rheumatoid Factor Complement C4 Miscellaneous Test Flexitest 1 H Crossmatch 11/06/16 11/06/16 11/06/16 04:56 06:25 06:25 WBC RBC 2.50 L Hgb 7.3 L Hct 22.5 L MCV MCH MCHC RDW 16.9 H Plt Count Lymph % (Auto) [place] % (Auto) 10.5 H Lymph # [place] # 1.1 H Baso # Seg Neutrophils % Seg Neuts % (Manual) Lymphocytes % (Manual) Monocytes % (Manual) Eosinophils % (Manual) Basophils % (Manual) Nucleated RBC % Seg Neutrophils # Seg Neutrophils # Man Lymphocytes # (Manual) Monocytes # (Manual) Eosinophils # (Manual) Basophils # (Manual) PT INR Fibrinogen dRVVT Confirm Interp Factor V Activity POC ABG pH POC ABG pCO2 POC ABG pO2 ABG pO2 ABG HCO3 ABG Base Excess ABG Hemoglobin Oxyhemoglobin Sodium Potassium 5.1 H Chloride 95.9 L Carbon Dioxide BUN 52 H Creatinine 1.8 H Glucose 117 H POC Glucose 120 H Lactic Acid Calcium Phosphorus Magnesium Direct Bilirubin AST 103 H ALT 77 H Alkaline Phosphatase 285 H Lactate Dehydrogenase Troponin T C-Reactive Protein Total Protein 6.2 L Albumin 1.8 L Prealbumin 0.180 L Triglycerides Cholesterol LDL Cholesterol Direct HDL Cholesterol Urine pH Urine WBC (Auto) Urine Creatinine Urine Total Protein Fluid Total Protein Vancomycin Trough Rheumatoid Factor Complement C4 Miscellaneous Test Crossmatch 11/06/16 11/06/16 11/06/16 11:56 17:14 23:52 WBC RBC Hgb Hct MCV MCH MCHC RDW Plt Count Lymph % (Auto) [place] % (Auto) Lymph # [place] # Baso # Seg Neutrophils % Seg Neuts % (Manual) Lymphocytes % (Manual) Monocytes % (Manual) Eosinophils % (Manual) Basophils % (Manual) Nucleated RBC % Seg Neutrophils # Seg Neutrophils # Man Lymphocytes # (Manual) Monocytes # (Manual) Eosinophils # (Manual) Basophils # (Manual) PT INR Fibrinogen dRVVT Confirm Interp Factor V Activity POC ABG pH POC ABG pCO2 POC ABG pO2 ABG pO2 ABG HCO3 ABG Base Excess ABG Hemoglobin Oxyhemoglobin Sodium Potassium Chloride Carbon Dioxide BUN Creatinine Glucose POC Glucose 141 H 125 H 130 H Lactic Acid Calcium Phosphorus Magnesium Direct Bilirubin AST ALT Alkaline Phosphatase Lactate Dehydrogenase Troponin T C-Reactive Protein Total Protein Albumin Prealbumin Triglycerides Cholesterol LDL Cholesterol Direct HDL Cholesterol Urine pH Urine WBC (Auto) Urine Creatinine Urine Total Protein Fluid Total Protein Vancomycin Trough Rheumatoid Factor Complement C4 Miscellaneous Test Crossmatch 11/07/16 11/07/16 11/07/16 06:30 06:30 09:37 WBC RBC 2.18 L Hgb 6.3 L Hct 19.7 L* MCV MCH MCHC RDW 16.8 H Plt Count Lymph % (Auto) [place] % (Auto) 10.0 H Lymph # [place] # 1.0 H Baso # Seg Neutrophils % Seg Neuts % (Manual) Lymphocytes % (Manual) Monocytes % (Manual) Eosinophils % (Manual) Basophils % (Manual) Nucleated RBC % Seg Neutrophils # Seg Neutrophils # Man Lymphocytes # (Manual) Monocytes # (Manual) Eosinophils # (Manual) Basophils # (Manual) PT INR Fibrinogen dRVVT Confirm Interp Factor V Activity POC ABG pH POC ABG pCO2 POC ABG pO2 ABG pO2 ABG HCO3 ABG Base Excess ABG Hemoglobin Oxyhemoglobin Sodium 135 L Potassium Chloride 95.6 L Carbon Dioxide BUN 70 H Creatinine 2.0 H Glucose 126 H POC Glucose Lactic Acid Calcium Phosphorus Magnesium Direct Bilirubin AST ALT Alkaline Phosphatase Lactate Dehydrogenase Troponin T C-Reactive Protein Total Protein Albumin Prealbumin Triglycerides Cholesterol LDL Cholesterol Direct HDL Cholesterol Urine pH Urine WBC (Auto) Urine Creatinine Urine Total Protein Fluid Total Protein Vancomycin Trough Rheumatoid Factor Complement C4 Miscellaneous Test Crossmatch See Detail 11/07/16 11/07/16 11/07/16 12:52 18:51 21:26 WBC RBC Hgb Hct MCV MCH MCHC RDW Plt Count Lymph % (Auto) [place] % (Auto) Lymph # [place] # Baso # Seg Neutrophils % Seg Neuts % (Manual) Lymphocytes % (Manual) Monocytes % (Manual) Eosinophils % (Manual) Basophils % (Manual) Nucleated RBC % Seg Neutrophils # Seg Neutrophils # Man Lymphocytes # (Manual) Monocytes # (Manual) Eosinophils # (Manual) Basophils # (Manual) PT INR Fibrinogen dRVVT Confirm Interp Factor V Activity POC ABG pH 7.523 H POC ABG pCO2 34.6 L POC ABG pO2 53 L ABG pO2 ABG HCO3 ABG Base Excess ABG Hemoglobin Oxyhemoglobin Sodium Potassium Chloride Carbon Dioxide BUN Creatinine Glucose POC Glucose 142 H 155 H Lactic Acid Calcium Phosphorus Magnesium Direct Bilirubin AST ALT Alkaline Phosphatase Lactate Dehydrogenase Troponin T C-Reactive Protein Total Protein Albumin Prealbumin Triglycerides Cholesterol LDL Cholesterol Direct HDL Cholesterol Urine pH Urine WBC (Auto) Urine Creatinine Urine Total Protein Fluid Total Protein Vancomycin Trough Rheumatoid Factor Complement C4 Miscellaneous Test Crossmatch 11/07/16 11/08/16 11/08/16 21:34 13:03 23:37 WBC RBC 2.63 L Hgb 7.7 L Hct 22.7 L MCV MCH MCHC RDW 17.0 H Plt Count Lymph % (Auto) [place] % (Auto) Lymph # [place] # Baso # Seg Neutrophils % Seg Neuts % (Manual) Lymphocytes % (Manual) Monocytes % (Manual) Eosinophils % (Manual) Basophils % (Manual) Nucleated RBC % Seg Neutrophils # Seg Neutrophils # Man Lymphocytes # (Manual) Monocytes # (Manual) Eosinophils # (Manual) Basophils # (Manual) PT INR Fibrinogen dRVVT Confirm Interp Factor V Activity POC ABG pH 7.478 H POC ABG pCO2 34.0 L POC ABG pO2 50 L ABG pO2 ABG HCO3 ABG Base Excess ABG Hemoglobin Oxyhemoglobin Sodium Potassium Chloride Carbon Dioxide BUN Creatinine Glucose POC Glucose 113 H Lactic Acid Calcium Phosphorus Magnesium Direct Bilirubin AST ALT Alkaline Phosphatase Lactate Dehydrogenase Troponin T C-Reactive Protein Total Protein Albumin Prealbumin Triglycerides Cholesterol LDL Cholesterol Direct HDL Cholesterol Urine pH Urine WBC (Auto) Urine Creatinine Urine Total Protein Fluid Total Protein Vancomycin Trough Rheumatoid Factor Complement C4 Miscellaneous Test Crossmatch 11/09/16 11/09/16 11/09/16 04:35 10:15 18:21 WBC RBC 2.68 L Hgb 7.8 L Hct 23.3 L MCV MCH MCHC RDW 17.0 H Plt Count Lymph % (Auto) [place] % (Auto) 12.1 H Lymph # [place] # 1.1 H Baso # Seg Neutrophils % Seg Neuts % (Manual) Lymphocytes % (Manual) Monocytes % (Manual) Eosinophils % (Manual) Basophils % (Manual) Nucleated RBC % Seg Neutrophils # Seg Neutrophils # Man Lymphocytes # (Manual) Monocytes # (Manual) Eosinophils # (Manual) Basophils # (Manual) PT INR Fibrinogen dRVVT Confirm Interp Factor V Activity POC ABG pH POC ABG pCO2 POC ABG pO2 ABG pO2 ABG HCO3 ABG Base Excess ABG Hemoglobin Oxyhemoglobin Sodium Potassium Chloride Carbon Dioxide BUN 51 H Creatinine 1.8 H Glucose POC Glucose 60 L Lactic Acid Calcium 8.3 L Phosphorus Magnesium Direct Bilirubin AST ALT Alkaline Phosphatase Lactate Dehydrogenase Troponin T C-Reactive Protein Total Protein Albumin Prealbumin Triglycerides Cholesterol LDL Cholesterol Direct HDL Cholesterol Urine pH Urine WBC (Auto) Urine Creatinine Urine Total Protein Fluid Total Protein Vancomycin Trough Rheumatoid Factor Complement C4 Miscellaneous Test Crossmatch 11/09/16 11/10/16 11/10/16 18:55 07:00 11:51 WBC RBC Hgb Hct MCV MCH MCHC RDW Plt Count Lymph % (Auto) [place] % (Auto) Lymph # [place] # Baso # Seg Neutrophils % Seg Neuts % (Manual) Lymphocytes % (Manual) Monocytes % (Manual) Eosinophils % (Manual) Basophils % (Manual) Nucleated RBC % Seg Neutrophils # Seg Neutrophils # Man Lymphocytes # (Manual) Monocytes # (Manual) Eosinophils # (Manual) Basophils # (Manual) PT INR Fibrinogen dRVVT Confirm Interp Factor V Activity POC ABG pH POC ABG pCO2 POC ABG pO2 ABG pO2 ABG HCO3 ABG Base Excess ABG Hemoglobin Oxyhemoglobin Sodium Potassium 3.0 L D Chloride 97.4 L Carbon Dioxide BUN 28 H Creatinine 1.3 H Glucose POC Glucose 68 L 120 H Lactic Acid Calcium 7.8 L Phosphorus Magnesium Direct Bilirubin AST ALT Alkaline Phosphatase Lactate Dehydrogenase Troponin T C-Reactive Protein Total Protein Albumin Prealbumin Triglycerides Cholesterol LDL Cholesterol Direct HDL Cholesterol Urine pH Urine WBC (Auto) Urine Creatinine Urine Total Protein Fluid Total Protein Vancomycin Trough Rheumatoid Factor Complement C4 Miscellaneous Test Crossmatch 11/10/16 11/11/16 11/11/16 14:20 06:59 06:59 WBC RBC 2.81 L Hgb 8.1 L Hct 24.4 L MCV MCH MCHC RDW 16.4 H Plt Count Lymph % (Auto) [place] % (Auto) 10.8 H Lymph # [place] # 1.0 H Baso # Seg Neutrophils % Seg Neuts % (Manual) Lymphocytes % (Manual) Monocytes % (Manual) Eosinophils % (Manual) Basophils % (Manual) Nucleated RBC % Seg Neutrophils # Seg Neutrophils # Man Lymphocytes # (Manual) Monocytes # (Manual) Eosinophils # (Manual) Basophils # (Manual) PT INR Fibrinogen dRVVT Confirm Interp Factor V Activity POC ABG pH POC ABG pCO2 POC ABG pO2 ABG pO2 ABG HCO3 ABG Base Excess ABG Hemoglobin Oxyhemoglobin Sodium Potassium Chloride Carbon Dioxide BUN Creatinine Glucose POC Glucose Lactic Acid Calcium Phosphorus Magnesium Direct Bilirubin AST ALT Alkaline Phosphatase Lactate Dehydrogenase 196 H Troponin T C-Reactive Protein Total Protein 6.1 L Albumin Prealbumin Triglycerides Cholesterol LDL Cholesterol Direct HDL Cholesterol Urine pH Urine WBC (Auto) Urine Creatinine Urine Total Protein Fluid Total Protein < 3.0 L Vancomycin Trough Rheumatoid Factor Complement C4 Miscellaneous Test Crossmatch 11/11/16 11/11/16 11/12/16 06:59 09:50 04:00 WBC RBC Hgb Hct MCV MCH MCHC RDW Plt Count Lymph % (Auto) [place] % (Auto) Lymph # [place] # Baso # Seg Neutrophils % Seg Neuts % (Manual) Lymphocytes % (Manual) Monocytes % (Manual) Eosinophils % (Manual) Basophils % (Manual) Nucleated RBC % Seg Neutrophils # Seg Neutrophils # Man Lymphocytes # (Manual) Monocytes # (Manual) Eosinophils # (Manual) Basophils # (Manual) PT INR 1.18 H Fibrinogen dRVVT Confirm Interp Factor V Activity POC ABG pH POC ABG pCO2 POC ABG pO2 ABG pO2 ABG HCO3 ABG Base Excess ABG Hemoglobin Oxyhemoglobin Sodium 136 L 133 L Potassium Chloride 96.1 L 94.8 L Carbon Dioxide 21 L BUN 37 H 42 H Creatinine 1.8 H 2.0 H Glucose POC Glucose Lactic Acid Calcium Phosphorus Magnesium Direct Bilirubin AST ALT Alkaline Phosphatase Lactate Dehydrogenase Troponin T C-Reactive Protein Total Protein Albumin Prealbumin Triglycerides Cholesterol LDL Cholesterol Direct HDL Cholesterol Urine pH Urine WBC (Auto) Urine Creatinine Urine Total Protein Fluid Total Protein Vancomycin Trough Rheumatoid Factor Complement C4 Miscellaneous Test Crossmatch 11/12/16 11/12/16 11/13/16 04:00 23:55 05:53 WBC RBC Hgb 8.9 L Hct 27.2 L MCV MCH MCHC RDW Plt Count Lymph % (Auto) [place] % (Auto) Lymph # [place] # Baso # Seg Neutrophils % Seg Neuts % (Manual) Lymphocytes % (Manual) Monocytes % (Manual) Eosinophils % (Manual) Basophils % (Manual) Nucleated RBC % Seg Neutrophils # Seg Neutrophils # Man Lymphocytes # (Manual) Monocytes # (Manual) Eosinophils # (Manual) Basophils # (Manual) PT INR Fibrinogen dRVVT Confirm Interp Factor V Activity POC ABG pH POC ABG pCO2 POC ABG pO2 ABG pO2 ABG HCO3 ABG Base Excess ABG Hemoglobin Oxyhemoglobin Sodium Potassium Chloride Carbon Dioxide BUN Creatinine Glucose POC Glucose 132 H 120 H Lactic Acid Calcium Phosphorus Magnesium Direct Bilirubin AST ALT Alkaline Phosphatase Lactate Dehydrogenase Troponin T C-Reactive Protein Total Protein Albumin Prealbumin Triglycerides Cholesterol LDL Cholesterol Direct HDL Cholesterol Urine pH Urine WBC (Auto) Urine Creatinine Urine Total Protein Fluid Total Protein Vancomycin Trough Rheumatoid Factor Complement C4 Miscellaneous Test Crossmatch 11/13/16 11/13/16 11/13/16 11:43 17:09 23:41 WBC RBC Hgb Hct MCV MCH MCHC RDW Plt Count Lymph % (Auto) [place] % (Auto) Lymph # [place] # Baso # Seg Neutrophils % Seg Neuts % (Manual) Lymphocytes % (Manual) Monocytes % (Manual) Eosinophils % (Manual) Basophils % (Manual) Nucleated RBC % Seg Neutrophils # Seg Neutrophils # Man Lymphocytes # (Manual) Monocytes # (Manual) Eosinophils # (Manual) Basophils # (Manual) PT INR Fibrinogen dRVVT Confirm Interp Factor V Activity POC ABG pH POC ABG pCO2 POC ABG pO2 ABG pO2 ABG HCO3 ABG Base Excess ABG Hemoglobin Oxyhemoglobin Sodium Potassium Chloride Carbon Dioxide BUN Creatinine Glucose POC Glucose 114 H 113 H 108 H Lactic Acid Calcium Phosphorus Magnesium Direct Bilirubin AST ALT Alkaline Phosphatase Lactate Dehydrogenase Troponin T C-Reactive Protein Total Protein Albumin Prealbumin Triglycerides Cholesterol LDL Cholesterol Direct HDL Cholesterol Urine pH Urine WBC (Auto) Urine Creatinine Urine Total Protein Fluid Total Protein Vancomycin Trough Rheumatoid Factor Complement C4 Miscellaneous Test Crossmatch 11/13/16 11/15/16 11/15/16 Unknown 00:37 03:30 WBC 11.2 H RBC 2.72 L Hgb 7.6 L Hct 23.4 L MCV MCH MCHC RDW 16.5 H Plt Count Lymph % (Auto) [place] % (Auto) Lymph # [place] # Baso # Seg Neutrophils % Seg Neuts % (Manual) Lymphocytes % (Manual) Monocytes % (Manual) Eosinophils % (Manual) Basophils % (Manual) Nucleated RBC % Seg Neutrophils # Seg Neutrophils # Man Lymphocytes # (Manual) Monocytes # (Manual) Eosinophils # (Manual) Basophils # (Manual) PT INR Fibrinogen dRVVT Confirm Interp Factor V Activity POC ABG pH POC ABG pCO2 POC ABG pO2 ABG pO2 ABG HCO3 ABG Base Excess ABG Hemoglobin Oxyhemoglobin Sodium 135 L Potassium Chloride 95.2 L Carbon Dioxide BUN 52 H Creatinine 2.2 H Glucose POC Glucose 108 H Lactic Acid Calcium Phosphorus Magnesium Direct Bilirubin AST ALT Alkaline Phosphatase Lactate Dehydrogenase Troponin T C-Reactive Protein Total Protein Albumin Prealbumin Triglycerides Cholesterol LDL Cholesterol Direct HDL Cholesterol Urine pH Urine WBC (Auto) Urine Creatinine Urine Total Protein Fluid Total Protein Vancomycin Trough Rheumatoid Factor Complement C4 Miscellaneous Test Crossmatch 11/15/16 11/15/16 11/15/16 03:30 05:04 11:50 WBC RBC Hgb Hct MCV MCH MCHC RDW Plt Count Lymph % (Auto) [place] % (Auto) Lymph # [place] # Baso # Seg Neutrophils % Seg Neuts % (Manual) Lymphocytes % (Manual) Monocytes % (Manual) Eosinophils % (Manual) Basophils % (Manual) Nucleated RBC % Seg Neutrophils # Seg Neutrophils # Man Lymphocytes # (Manual) Monocytes # (Manual) Eosinophils # (Manual) Basophils # (Manual) PT INR Fibrinogen dRVVT Confirm Interp Factor V Activity POC ABG pH POC ABG pCO2 POC ABG pO2 ABG pO2 ABG HCO3 ABG Base Excess ABG Hemoglobin Oxyhemoglobin Sodium Potassium 3.4 L Chloride Carbon Dioxide BUN 25 H Creatinine 1.5 H Glucose 103 H POC Glucose 121 H 144 H Lactic Acid Calcium Phosphorus Magnesium Direct Bilirubin AST ALT Alkaline Phosphatase Lactate Dehydrogenase Troponin T C-Reactive Protein Total Protein Albumin Prealbumin Triglycerides Cholesterol LDL Cholesterol Direct HDL Cholesterol Urine pH Urine WBC (Auto) Urine Creatinine Urine Total Protein Fluid Total Protein Vancomycin Trough Rheumatoid Factor Complement C4 Miscellaneous Test Crossmatch 11/15/16 11/15/16 11/16/16 21:28 23:20 11:44 WBC RBC Hgb Hct MCV MCH MCHC RDW Plt Count Lymph % (Auto) [place] % (Auto) Lymph # [place] # Baso # Seg Neutrophils % Seg Neuts % (Manual) Lymphocytes % (Manual) Monocytes % (Manual) Eosinophils % (Manual) Basophils % (Manual) Nucleated RBC % Seg Neutrophils # Seg Neutrophils # Man Lymphocytes # (Manual) Monocytes # (Manual) Eosinophils # (Manual) Basophils # (Manual) PT INR Fibrinogen dRVVT Confirm Interp Factor V Activity POC ABG pH 7.462 H POC ABG pCO2 POC ABG pO2 71 L ABG pO2 ABG HCO3 ABG Base Excess ABG Hemoglobin Oxyhemoglobin Sodium Potassium Chloride Carbon Dioxide BUN Creatinine Glucose POC Glucose 116 H 133 H Lactic Acid Calcium Phosphorus Magnesium Direct Bilirubin AST ALT Alkaline Phosphatase Lactate Dehydrogenase Troponin T C-Reactive Protein Total Protein Albumin Prealbumin Triglycerides Cholesterol LDL Cholesterol Direct HDL Cholesterol Urine pH Urine WBC (Auto) Urine Creatinine Urine Total Protein Fluid Total Protein Vancomycin Trough Rheumatoid Factor Complement C4 Miscellaneous Test Crossmatch 11/16/16 11/16/16 11/16/16 12:20 17:05 23:35 WBC 11.7 H RBC 2.73 L Hgb 7.6 L Hct 23.7 L MCV MCH MCHC RDW 16.6 H Plt Count Lymph % (Auto) [place] % (Auto) Lymph # [place] # Baso # Seg Neutrophils % Seg Neuts % (Manual) Lymphocytes % (Manual) Monocytes % (Manual) Eosinophils % (Manual) Basophils % (Manual) Nucleated RBC % Seg Neutrophils # Seg Neutrophils # Man Lymphocytes # (Manual) Monocytes # (Manual) Eosinophils # (Manual) Basophils # (Manual) PT INR Fibrinogen dRVVT Confirm Interp Factor V Activity POC ABG pH POC ABG pCO2 POC ABG pO2 ABG pO2 ABG HCO3 ABG Base Excess ABG Hemoglobin Oxyhemoglobin Sodium Potassium Chloride Carbon Dioxide BUN Creatinine Glucose POC Glucose 154 H 125 H Lactic Acid Calcium Phosphorus Magnesium Direct Bilirubin AST ALT Alkaline Phosphatase Lactate Dehydrogenase Troponin T C-Reactive Protein Total Protein Albumin Prealbumin Triglycerides Cholesterol LDL Cholesterol Direct HDL Cholesterol Urine pH Urine WBC (Auto) Urine Creatinine Urine Total Protein Fluid Total Protein Vancomycin Trough Rheumatoid Factor Complement C4 Miscellaneous Test Crossmatch 11/17/16 11/17/16 11/17/16 03:20 03:20 03:20 WBC RBC 2.55 L Hgb 7.3 L Hct 21.9 L MCV MCH MCHC RDW 16.6 H Plt Count Lymph % (Auto) [place] % (Auto) 11.5 H Lymph # [place] # 1.1 H Baso # Seg Neutrophils % Seg Neuts % (Manual) Lymphocytes % (Manual) Monocytes % (Manual) Eosinophils % (Manual) Basophils % (Manual) Nucleated RBC % Seg Neutrophils # Seg Neutrophils # Man Lymphocytes # (Manual) Monocytes # (Manual) Eosinophils # (Manual) Basophils # (Manual) PT 16.8 H INR 1.37 H Fibrinogen dRVVT Confirm Interp Factor V Activity POC ABG pH POC ABG pCO2 POC ABG pO2 ABG pO2 ABG HCO3 ABG Base Excess ABG Hemoglobin Oxyhemoglobin Sodium Potassium 3.5 L Chloride Carbon Dioxide BUN 21 H Creatinine Glucose POC Glucose Lactic Acid Calcium 7.9 L Phosphorus Magnesium Direct Bilirubin AST ALT Alkaline Phosphatase Lactate Dehydrogenase Troponin T C-Reactive Protein Total Protein Albumin Prealbumin Triglycerides Cholesterol LDL Cholesterol Direct HDL Cholesterol Urine pH Urine WBC (Auto) Urine Creatinine Urine Total Protein Fluid Total Protein Vancomycin Trough Rheumatoid Factor Complement C4 Miscellaneous Test Crossmatch 11/17/16 11/17/16 11/17/16 06:34 11:21 21:22 WBC RBC Hgb Hct MCV MCH MCHC RDW Plt Count Lymph % (Auto) [place] % (Auto) Lymph # [place] # Baso # Seg Neutrophils % Seg Neuts % (Manual) Lymphocytes % (Manual) Monocytes % (Manual) Eosinophils % (Manual) Basophils % (Manual) Nucleated RBC % Seg Neutrophils # Seg Neutrophils # Man Lymphocytes # (Manual) Monocytes # (Manual) Eosinophils # (Manual) Basophils # (Manual) PT INR Fibrinogen dRVVT Confirm Interp Factor V Activity POC ABG pH 7.467 H POC ABG pCO2 POC ABG pO2 73 L ABG pO2 ABG HCO3 ABG Base Excess ABG Hemoglobin Oxyhemoglobin Sodium Potassium Chloride Carbon Dioxide BUN Creatinine Glucose POC Glucose 121 H 119 H Lactic Acid Calcium Phosphorus Magnesium Direct Bilirubin AST ALT Alkaline Phosphatase Lactate Dehydrogenase Troponin T C-Reactive Protein Total Protein Albumin Prealbumin Triglycerides Cholesterol LDL Cholesterol Direct HDL Cholesterol Urine pH Urine WBC (Auto) Urine Creatinine Urine Total Protein Fluid Total Protein Vancomycin Trough Rheumatoid Factor Complement C4 Miscellaneous Test Crossmatch 11/18/16 11/18/16 11/19/16 12:16 17:19 00:00 WBC RBC Hgb Hct MCV MCH MCHC RDW Plt Count Lymph % (Auto) [place] % (Auto) Lymph # [place] # Baso # Seg Neutrophils % Seg Neuts % (Manual) Lymphocytes % (Manual) Monocytes % (Manual) Eosinophils % (Manual) Basophils % (Manual) Nucleated RBC % Seg Neutrophils # Seg Neutrophils # Man Lymphocytes # (Manual) Monocytes # (Manual) Eosinophils # (Manual) Basophils # (Manual) PT INR Fibrinogen dRVVT Confirm Interp Factor V Activity POC ABG pH POC ABG pCO2 POC ABG pO2 ABG pO2 ABG HCO3 ABG Base Excess ABG Hemoglobin Oxyhemoglobin Sodium Potassium Chloride Carbon Dioxide BUN Creatinine Glucose POC Glucose 124 H 162 H 139 H Lactic Acid Calcium Phosphorus Magnesium Direct Bilirubin AST ALT Alkaline Phosphatase Lactate Dehydrogenase Troponin T C-Reactive Protein Total Protein Albumin Prealbumin Triglycerides Cholesterol LDL Cholesterol Direct HDL Cholesterol Urine pH Urine WBC (Auto) Urine Creatinine Urine Total Protein Fluid Total Protein Vancomycin Trough Rheumatoid Factor Complement C4 Miscellaneous Test Crossmatch 11/19/16 11/19/16 11/20/16 05:00 12:43 00:40 WBC RBC Hgb Hct MCV MCH MCHC RDW Plt Count Lymph % (Auto) [place] % (Auto) Lymph # [place] # Baso # Seg Neutrophils % Seg Neuts % (Manual) Lymphocytes % (Manual) Monocytes % (Manual) Eosinophils % (Manual) Basophils % (Manual) Nucleated RBC % Seg Neutrophils # Seg Neutrophils # Man Lymphocytes # (Manual) Monocytes # (Manual) Eosinophils # (Manual) Basophils # (Manual) PT INR Fibrinogen dRVVT Confirm Interp Factor V Activity POC ABG pH POC ABG pCO2 POC ABG pO2 ABG pO2 ABG HCO3 ABG Base Excess ABG Hemoglobin Oxyhemoglobin Sodium Potassium Chloride Carbon Dioxide BUN Creatinine Glucose POC Glucose 110 H 125 H 136 H Lactic Acid Calcium Phosphorus Magnesium Direct Bilirubin AST ALT Alkaline Phosphatase Lactate Dehydrogenase Troponin T C-Reactive Protein Total Protein Albumin Prealbumin Triglycerides Cholesterol LDL Cholesterol Direct HDL Cholesterol Urine pH Urine WBC (Auto) Urine Creatinine Urine Total Protein Fluid Total Protein Vancomycin Trough Rheumatoid Factor Complement C4 Miscellaneous Test Crossmatch 11/20/16 11/20/16 11/20/16 05:00 05:00 05:51 WBC 13.1 H RBC 2.74 L Hgb 7.7 L Hct 23.6 L MCV MCH MCHC RDW 16.9 H Plt Count Lymph % (Auto) [place] % (Auto) 10.8 H Lymph # [place] # 1.4 H Baso # Seg Neutrophils % Seg Neuts % (Manual) Lymphocytes % (Manual) Monocytes % (Manual) Eosinophils % (Manual) Basophils % (Manual) Nucleated RBC % Seg Neutrophils # 7.9 H Seg Neutrophils # Man Lymphocytes # (Manual) Monocytes # (Manual) Eosinophils # (Manual) Basophils # (Manual) PT INR Fibrinogen dRVVT Confirm Interp Factor V Activity POC ABG pH POC ABG pCO2 POC ABG pO2 ABG pO2 ABG HCO3 ABG Base Excess ABG Hemoglobin Oxyhemoglobin Sodium Potassium Chloride Carbon Dioxide BUN 31 H Creatinine 1.8 H Glucose 129 H POC Glucose 133 H Lactic Acid Calcium Phosphorus Magnesium Direct Bilirubin AST ALT Alkaline Phosphatase Lactate Dehydrogenase Troponin T C-Reactive Protein Total Protein Albumin Prealbumin Triglycerides Cholesterol LDL Cholesterol Direct HDL Cholesterol Urine pH Urine WBC (Auto) Urine Creatinine Urine Total Protein Fluid Total Protein Vancomycin Trough Rheumatoid Factor Complement C4 Miscellaneous Test Crossmatch 11/20/16 11/20/16 11/21/16 12:40 18:10 01:20 WBC RBC Hgb Hct MCV MCH MCHC RDW Plt Count Lymph % (Auto) [place] % (Auto) Lymph # [place] # Baso # Seg Neutrophils % Seg Neuts % (Manual) Lymphocytes % (Manual) Monocytes % (Manual) Eosinophils % (Manual) Basophils % (Manual) Nucleated RBC % Seg Neutrophils # Seg Neutrophils # Man Lymphocytes # (Manual) Monocytes # (Manual) Eosinophils # (Manual) Basophils # (Manual) PT INR Fibrinogen dRVVT Confirm Interp Factor V Activity POC ABG pH POC ABG pCO2 POC ABG pO2 ABG pO2 ABG HCO3 ABG Base Excess ABG Hemoglobin Oxyhemoglobin Sodium Potassium Chloride Carbon Dioxide BUN Creatinine Glucose POC Glucose 134 H 138 H 136 H Lactic Acid Calcium Phosphorus Magnesium Direct Bilirubin AST ALT Alkaline Phosphatase Lactate Dehydrogenase Troponin T C-Reactive Protein Total Protein Albumin Prealbumin Triglycerides Cholesterol LDL Cholesterol Direct HDL Cholesterol Urine pH Urine WBC (Auto) Urine Creatinine Urine Total Protein Fluid Total Protein Vancomycin Trough Rheumatoid Factor Complement C4 Miscellaneous Test Crossmatch 11/21/16 11/21/16 11/21/16 07:04 07:45 07:45 WBC 22.0 H RBC 2.91 L Hgb 8.2 L Hct 25.4 L MCV MCH MCHC RDW 17.1 H Plt Count Lymph % (Auto) [place] % (Auto) Lymph # [place] # Baso # Seg Neutrophils % Seg Neuts % (Manual) Lymphocytes % (Manual) 8.0 L Monocytes % (Manual) Eosinophils % (Manual) Basophils % (Manual) Nucleated RBC % Seg Neutrophils # Seg Neutrophils # Man 14.7 H Lymphocytes # (Manual) Monocytes # (Manual) 1.1 H Eosinophils # (Manual) Basophils # (Manual) PT INR Fibrinogen dRVVT Confirm Interp Factor V Activity POC ABG pH POC ABG pCO2 POC ABG pO2 ABG pO2 ABG HCO3 ABG Base Excess ABG Hemoglobin Oxyhemoglobin Sodium Potassium Chloride Carbon Dioxide BUN 42 H Creatinine 2.0 H Glucose POC Glucose 108 H Lactic Acid Calcium Phosphorus Magnesium Direct Bilirubin AST ALT Alkaline Phosphatase Lactate Dehydrogenase Troponin T C-Reactive Protein Total Protein Albumin Prealbumin Triglycerides Cholesterol LDL Cholesterol Direct HDL Cholesterol Urine pH Urine WBC (Auto) Urine Creatinine Urine Total Protein Fluid Total Protein Vancomycin Trough Rheumatoid Factor Complement C4 Miscellaneous Test Crossmatch 11/21/16 11/21/16 11/21/16 08:38 10:09 11:20 WBC RBC Hgb Hct MCV MCH MCHC RDW Plt Count Lymph % (Auto) [place] % (Auto) Lymph # [place] # Baso # Seg Neutrophils % Seg Neuts % (Manual) Lymphocytes % (Manual) Monocytes % (Manual) Eosinophils % (Manual) Basophils % (Manual) Nucleated RBC % Seg Neutrophils # Seg Neutrophils # Man Lymphocytes # (Manual) Monocytes # (Manual) Eosinophils # (Manual) Basophils # (Manual) PT INR Fibrinogen dRVVT Confirm Interp Factor V Activity POC ABG pH 7.346 L POC ABG pCO2 34.4 L POC ABG pO2 314 H ABG pO2 ABG HCO3 ABG Base Excess ABG Hemoglobin Oxyhemoglobin Sodium Potassium Chloride Carbon Dioxide BUN Creatinine Glucose POC Glucose 195 H 153 H Lactic Acid Calcium Phosphorus Magnesium Direct Bilirubin AST ALT Alkaline Phosphatase Lactate Dehydrogenase Troponin T C-Reactive Protein Total Protein Albumin Prealbumin Triglycerides Cholesterol LDL Cholesterol Direct HDL Cholesterol Urine pH Urine WBC (Auto) Urine Creatinine Urine Total Protein Fluid Total Protein Vancomycin Trough Rheumatoid Factor Complement C4 Miscellaneous Test Crossmatch 11/21/16 11/22/16 11/22/16 23:37 04:48 05:00 WBC 29.7 H RBC 2.73 L Hgb 7.5 L Hct 24.2 L MCV MCH 27 L MCHC RDW 17.4 H Plt Count Lymph % (Auto) [place] % (Auto) Lymph # [place] # Baso # Seg Neutrophils % Seg Neuts % (Manual) Lymphocytes % (Manual) 7.0 L Monocytes % (Manual) Eosinophils % (Manual) Basophils % (Manual) Nucleated RBC % Seg Neutrophils # Seg Neutrophils # Man 15.4 H Lymphocytes # (Manual) Monocytes # (Manual) Eosinophils # (Manual) Basophils # (Manual) PT INR Fibrinogen dRVVT Confirm Interp Factor V Activity POC ABG pH POC ABG pCO2 24.6 L POC ABG pO2 189 H ABG pO2 ABG HCO3 ABG Base Excess ABG Hemoglobin Oxyhemoglobin Sodium Potassium Chloride Carbon Dioxide BUN Creatinine Glucose POC Glucose 65 L Lactic Acid Calcium Phosphorus Magnesium Direct Bilirubin AST ALT Alkaline Phosphatase Lactate Dehydrogenase Troponin T C-Reactive Protein Total Protein Albumin Prealbumin Triglycerides Cholesterol LDL Cholesterol Direct HDL Cholesterol Urine pH Urine WBC (Auto) Urine Creatinine Urine Total Protein Fluid Total Protein Vancomycin Trough Rheumatoid Factor Complement C4 Miscellaneous Test Crossmatch 11/22/16 11/23/16 11/23/16 05:00 03:44 04:06 WBC RBC 2.52 L Hgb 7.2 L Hct 21.5 L MCV MCH MCHC RDW 17.1 H Plt Count Lymph % (Auto) [place] % (Auto) 12.4 H Lymph # [place] # 1.4 H Baso # Seg Neutrophils % Seg Neuts % (Manual) Lymphocytes % (Manual) Monocytes % (Manual) Eosinophils % (Manual) Basophils % (Manual) Nucleated RBC % Seg Neutrophils # Seg Neutrophils # Man Lymphocytes # (Manual) Monocytes # (Manual) Eosinophils # (Manual) Basophils # (Manual) PT INR Fibrinogen dRVVT Confirm Interp Factor V Activity POC ABG pH 7.493 H POC ABG pCO2 29.5 L POC ABG pO2 49 L ABG pO2 ABG HCO3 ABG Base Excess ABG Hemoglobin Oxyhemoglobin Sodium 134 L Potassium Chloride 95.9 L Carbon Dioxide 14 L D BUN 51 H Creatinine 2.6 H Glucose POC Glucose Lactic Acid Calcium Phosphorus Magnesium Direct Bilirubin AST ALT Alkaline Phosphatase Lactate Dehydrogenase Troponin T C-Reactive Protein Total Protein Albumin Prealbumin Triglycerides Cholesterol LDL Cholesterol Direct HDL Cholesterol Urine pH Urine WBC (Auto) Urine Creatinine Urine Total Protein Fluid Total Protein Vancomycin Trough Rheumatoid Factor Complement C4 Miscellaneous Test Crossmatch 11/23/16 11/23/16 11/24/16 04:06 11:29 06:39 WBC RBC Hgb Hct MCV MCH MCHC RDW Plt Count Lymph % (Auto) [place] % (Auto) Lymph # [place]ke # Baso # Seg Neutrophils % Seg Neuts % (Manual) Lymphocytes % (Manual) Monocytes % (Manual) Eosinophils % (Manual) Basophils % (Manual) Nucleated RBC % Seg Neutrophils # Seg Neutrophils # Man Lymphocytes # (Manual) Monocytes # (Manual) Eosinophils # (Manual) Basophils # (Manual) PT INR Fibrinogen dRVVT Confirm Interp Factor V Activity POC ABG pH POC ABG pCO2 POC ABG pO2 ABG pO2 ABG HCO3 ABG Base Excess ABG Hemoglobin Oxyhemoglobin Sodium 136 L Potassium Chloride 95.2 L Carbon Dioxide BUN 60 H Creatinine 2.9 H Glucose POC Glucose 69 L 305 H Lactic Acid Calcium Phosphorus Magnesium 1.60 L Direct Bilirubin AST ALT Alkaline Phosphatase Lactate Dehydrogenase Troponin T C-Reactive Protein Total Protein Albumin Prealbumin Triglycerides Cholesterol LDL Cholesterol Direct HDL Cholesterol Urine pH Urine WBC (Auto) Urine Creatinine Urine Total Protein Fluid Total Protein Vancomycin Trough Rheumatoid Factor Complement C4 Miscellaneous Test Crossmatch 11/24/16 11/24/16 11/24/16 06:43 08:08 08:08 WBC 11.2 H RBC 2.47 L Hgb 6.8 L Hct 20.6 L MCV MCH MCHC RDW 17.0 H Plt Count Lymph % (Auto) [place] % (Auto) 10.3 H Lymph # [place] # 1.2 H Baso # Seg Neutrophils % Seg Neuts % (Manual) Lymphocytes % (Manual) Monocytes % (Manual) Eosinophils % (Manual) Basophils % (Manual) Nucleated RBC % Seg Neutrophils # Seg Neutrophils # Man Lymphocytes # (Manual) Monocytes # (Manual) Eosinophils # (Manual) Basophils # (Manual) PT INR Fibrinogen dRVVT Confirm Interp Factor V Activity POC ABG pH POC ABG pCO2 POC ABG pO2 ABG pO2 ABG HCO3 ABG Base Excess ABG Hemoglobin Oxyhemoglobin Sodium 135 L Potassium Chloride 96.3 L Carbon Dioxide BUN 61 H Creatinine 3.1 H Glucose POC Glucose 62 L Lactic Acid Calcium 8.2 L Phosphorus Magnesium Direct Bilirubin AST ALT Alkaline Phosphatase Lactate Dehydrogenase Troponin T C-Reactive Protein Total Protein Albumin Prealbumin Triglycerides Cholesterol LDL Cholesterol Direct HDL Cholesterol Urine pH Urine WBC (Auto) Urine Creatinine Urine Total Protein Fluid Total Protein Vancomycin Trough Rheumatoid Factor Complement C4 Miscellaneous Test Crossmatch 11/24/16 11/24/16 11/24/16 08:34 11:20 12:41 WBC RBC Hgb Hct MCV MCH MCHC RDW Plt Count Lymph % (Auto) [place] % (Auto) Lymph # [place] # Baso # Seg Neutrophils % Seg Neuts % (Manual) Lymphocytes % (Manual) Monocytes % (Manual) Eosinophils % (Manual) Basophils % (Manual) Nucleated RBC % Seg Neutrophils # Seg Neutrophils # Man Lymphocytes # (Manual) Monocytes # (Manual) Eosinophils # (Manual) Basophils # (Manual) PT INR Fibrinogen dRVVT Confirm Interp Factor V Activity POC ABG pH POC ABG pCO2 POC ABG pO2 ABG pO2 ABG HCO3 ABG Base Excess ABG Hemoglobin Oxyhemoglobin Sodium Potassium Chloride Carbon Dioxide BUN Creatinine Glucose POC Glucose 108 H Lactic Acid Calcium Phosphorus Magnesium 1.60 L Direct Bilirubin AST ALT Alkaline Phosphatase Lactate Dehydrogenase Troponin T C-Reactive Protein Total Protein Albumin Prealbumin Triglycerides Cholesterol LDL Cholesterol Direct HDL Cholesterol Urine pH Urine WBC (Auto) Urine Creatinine Urine Total Protein Fluid Total Protein Vancomycin Trough Rheumatoid Factor Complement C4 Miscellaneous Test Crossmatch See Detail 11/25/16 11/25/16 11/25/16 00:03 04:42 04:42 WBC RBC 3.03 L Hgb 8.6 L Hct 25.3 L MCV MCH MCHC RDW 16.2 H Plt Count Lymph % (Auto) [place] % (Auto) 8.1 H Lymph # [place] # Baso # Seg Neutrophils % 71.3 H Seg Neuts % (Manual) Lymphocytes % (Manual) Monocytes % (Manual) Eosinophils % (Manual) Basophils % (Manual) Nucleated RBC % Seg Neutrophils # Seg Neutrophils # Man Lymphocytes # (Manual) Monocytes # (Manual) Eosinophils # (Manual) Basophils # (Manual) PT INR Fibrinogen dRVVT Confirm Interp Factor V Activity POC ABG pH POC ABG pCO2 POC ABG pO2 ABG pO2 ABG HCO3 ABG Base Excess ABG Hemoglobin Oxyhemoglobin Sodium Potassium Chloride Carbon Dioxide BUN 61 H Creatinine 3.0 H Glucose 102 H POC Glucose 113 H Lactic Acid Calcium 8.2 L Phosphorus Magnesium Direct Bilirubin AST ALT Alkaline Phosphatase 142 H Lactate Dehydrogenase Troponin T C-Reactive Protein Total Protein 5.7 L Albumin 1.5 L Prealbumin Triglycerides Cholesterol LDL Cholesterol Direct HDL Cholesterol Urine pH Urine WBC (Auto) Urine Creatinine Urine Total Protein Fluid Total Protein Vancomycin Trough Rheumatoid Factor Complement C4 Miscellaneous Test Crossmatch 11/25/16 11/25/16 11/25/16 05:12 11:31 14:12 WBC RBC Hgb Hct MCV MCH MCHC RDW Plt Count Lymph % (Auto) [place] % (Auto) Lymph # [place] # Baso # Seg Neutrophils % Seg Neuts % (Manual) Lymphocytes % (Manual) Monocytes % (Manual) Eosinophils % (Manual) Basophils % (Manual) Nucleated RBC % Seg Neutrophils # Seg Neutrophils # Man Lymphocytes # (Manual) Monocytes # (Manual) Eosinophils # (Manual) Basophils # (Manual) PT INR Fibrinogen dRVVT Confirm Interp Factor V Activity POC ABG pH 7.487 H POC ABG pCO2 POC ABG pO2 153 H ABG pO2 ABG HCO3 ABG Base Excess ABG Hemoglobin Oxyhemoglobin Sodium Potassium Chloride Carbon Dioxide BUN Creatinine Glucose POC Glucose 131 H 140 H Lactic Acid Calcium Phosphorus Magnesium Direct Bilirubin AST ALT Alkaline Phosphatase Lactate Dehydrogenase Troponin T C-Reactive Protein Total Protein Albumin Prealbumin Triglycerides Cholesterol LDL Cholesterol Direct HDL Cholesterol Urine pH Urine WBC (Auto) Urine Creatinine Urine Total Protein Fluid Total Protein Vancomycin Trough Rheumatoid Factor Complement C4 Miscellaneous Test Crossmatch 11/25/16 11/26/16 11/26/16 17:23 00:09 05:13 WBC RBC 2.94 L Hgb 8.4 L Hct 24.6 L MCV MCH MCHC RDW 16.4 H Plt Count Lymph % (Auto) [place] % (Auto) 12.3 H Lymph # [place] # 1.1 H Baso # Seg Neutrophils % Seg Neuts % (Manual) Lymphocytes % (Manual) Monocytes % (Manual) Eosinophils % (Manual) Basophils % (Manual) Nucleated RBC % Seg Neutrophils # Seg Neutrophils # Man Lymphocytes # (Manual) Monocytes # (Manual) Eosinophils # (Manual) Basophils # (Manual) PT INR Fibrinogen dRVVT Confirm Interp Factor V Activity POC ABG pH POC ABG pCO2 POC ABG pO2 ABG pO2 ABG HCO3 ABG Base Excess ABG Hemoglobin Oxyhemoglobin Sodium Potassium Chloride Carbon Dioxide BUN Creatinine Glucose POC Glucose 146 H 112 H Lactic Acid Calcium Phosphorus Magnesium Direct Bilirubin AST ALT Alkaline Phosphatase Lactate Dehydrogenase Troponin T C-Reactive Protein Total Protein Albumin Prealbumin Triglycerides Cholesterol LDL Cholesterol Direct HDL Cholesterol Urine pH Urine WBC (Auto) Urine Creatinine Urine Total Protein Fluid Total Protein Vancomycin Trough Rheumatoid Factor Complement C4 Miscellaneous Test Crossmatch 11/26/16 11/26/16 11/26/16 05:13 05:28 11:53 WBC RBC Hgb Hct MCV MCH MCHC RDW Plt Count Lymph % (Auto) [place] % (Auto) Lymph # [place] # Baso # Seg Neutrophils % Seg Neuts % (Manual) Lymphocytes % (Manual) Monocytes % (Manual) Eosinophils % (Manual) Basophils % (Manual) Nucleated RBC % Seg Neutrophils # Seg Neutrophils # Man Lymphocytes # (Manual) Monocytes # (Manual) Eosinophils # (Manual) Basophils # (Manual) PT INR Fibrinogen dRVVT Confirm Interp Factor V Activity POC ABG pH POC ABG pCO2 POC ABG pO2 ABG pO2 ABG HCO3 ABG Base Excess ABG Hemoglobin Oxyhemoglobin Sodium Potassium Chloride 97.8 L Carbon Dioxide BUN 37 H Creatinine 2.0 H Glucose 109 H POC Glucose 117 H 111 H Lactic Acid Calcium 7.9 L Phosphorus 1.80 L D Magnesium Direct Bilirubin AST ALT Alkaline Phosphatase Lactate Dehydrogenase Troponin T C-Reactive Protein Total Protein Albumin Prealbumin Triglycerides Cholesterol LDL Cholesterol Direct HDL Cholesterol Urine pH Urine WBC (Auto) Urine Creatinine Urine Total Protein Fluid Total Protein Vancomycin Trough Rheumatoid Factor Complement C4 Miscellaneous Test Crossmatch 11/26/16 11/27/16 11/27/16 17:14 04:50 06:02 WBC RBC Hgb Hct MCV MCH MCHC RDW Plt Count Lymph % (Auto) [place] % (Auto) Lymph # [place] # Baso # Seg Neutrophils % Seg Neuts % (Manual) Lymphocytes % (Manual) Monocytes % (Manual) Eosinophils % (Manual) Basophils % (Manual) Nucleated RBC % Seg Neutrophils # Seg Neutrophils # Man Lymphocytes # (Manual) Monocytes # (Manual) Eosinophils # (Manual) Basophils # (Manual) PT INR Fibrinogen dRVVT Confirm Interp Factor V Activity POC ABG pH POC ABG pCO2 POC ABG pO2 ABG pO2 75.2 L ABG HCO3 26.4 H ABG Base Excess ABG Hemoglobin 7.6 L Oxyhemoglobin 94.8 L Sodium Potassium Chloride Carbon Dioxide BUN 49 H Creatinine 2.3 H Glucose POC Glucose 115 H Lactic Acid Calcium Phosphorus 1.50 L Magnesium Direct Bilirubin AST ALT Alkaline Phosphatase Lactate Dehydrogenase Troponin T C-Reactive Protein Total Protein Albumin Prealbumin Triglycerides Cholesterol LDL Cholesterol Direct HDL Cholesterol Urine pH Urine WBC (Auto) Urine Creatinine Urine Total Protein Fluid Total Protein Vancomycin Trough Rheumatoid Factor Complement C4 Miscellaneous Test Crossmatch 11/27/16 11/27/16 11/27/16 06:02 11:25 17:25 WBC 11.6 H RBC 2.75 L Hgb 7.6 L Hct 23.4 L MCV MCH MCHC RDW 16.5 H Plt Count Lymph % (Auto) [place] % (Auto) Lymph # [place] # Baso # Seg Neutrophils % Seg Neuts % (Manual) Lymphocytes % (Manual) Monocytes % (Manual) Eosinophils % (Manual) Basophils % (Manual) Nucleated RBC % Seg Neutrophils # Seg Neutrophils # Man Lymphocytes # (Manual) Monocytes # (Manual) Eosinophils # (Manual) Basophils # (Manual) PT INR Fibrinogen dRVVT Confirm Interp Factor V Activity POC ABG pH POC ABG pCO2 POC ABG pO2 ABG pO2 ABG HCO3 ABG Base Excess ABG Hemoglobin Oxyhemoglobin Sodium Potassium Chloride Carbon Dioxide BUN Creatinine Glucose POC Glucose 114 H 126 H Lactic Acid Calcium Phosphorus Magnesium Direct Bilirubin AST ALT Alkaline Phosphatase Lactate Dehydrogenase Troponin T C-Reactive Protein Total Protein Albumin Prealbumin Triglycerides Cholesterol LDL Cholesterol Direct HDL Cholesterol Urine pH Urine WBC (Auto) Urine Creatinine Urine Total Protein Fluid Total Protein Vancomycin Trough Rheumatoid Factor Complement C4 Miscellaneous Test Crossmatch 11/28/16 11/28/16 11/28/16 04:45 05:33 05:44 WBC RBC Hgb Hct MCV MCH MCHC RDW Plt Count Lymph % (Auto) [place] % (Auto) Lymph # [place] # Baso # Seg Neutrophils % Seg Neuts % (Manual) Lymphocytes % (Manual) Monocytes % (Manual) Eosinophils % (Manual) Basophils % (Manual) Nucleated RBC % Seg Neutrophils # Seg Neutrophils # Man Lymphocytes # (Manual) Monocytes # (Manual) Eosinophils # (Manual) Basophils # (Manual) PT INR Fibrinogen dRVVT Confirm Interp Factor V Activity POC ABG pH POC ABG pCO2 POC ABG pO2 ABG pO2 99.3 H ABG HCO3 ABG Base Excess ABG Hemoglobin 8.3 L Oxyhemoglobin Sodium Potassium Chloride Carbon Dioxide BUN 63 H Creatinine 2.4 H Glucose 102 H POC Glucose 108 H Lactic Acid Calcium Phosphorus 1.80 L Magnesium Direct Bilirubin AST ALT Alkaline Phosphatase Lactate Dehydrogenase Troponin T C-Reactive Protein Total Protein Albumin Prealbumin Triglycerides Cholesterol LDL Cholesterol Direct HDL Cholesterol Urine pH Urine WBC (Auto) Urine Creatinine Urine Total Protein Fluid Total Protein Vancomycin Trough Rheumatoid Factor Complement C4 Miscellaneous Test Crossmatch 11/28/16 11/28/16 11/28/16 12:31 16:09 23:46 WBC RBC Hgb Hct MCV MCH MCHC RDW Plt Count Lymph % (Auto) [place] % (Auto) Lymph # [place] # Baso # Seg Neutrophils % Seg Neuts % (Manual) Lymphocytes % (Manual) Monocytes % (Manual) Eosinophils % (Manual) Basophils % (Manual) Nucleated RBC % Seg Neutrophils # Seg Neutrophils # Man Lymphocytes # (Manual) Monocytes # (Manual) Eosinophils # (Manual) Basophils # (Manual) PT INR Fibrinogen dRVVT Confirm Interp Factor V Activity POC ABG pH POC ABG pCO2 POC ABG pO2 ABG pO2 ABG HCO3 ABG Base Excess ABG Hemoglobin Oxyhemoglobin Sodium Potassium Chloride Carbon Dioxide BUN Creatinine Glucose POC Glucose 126 H 111 H 119 H Lactic Acid Calcium Phosphorus Magnesium Direct Bilirubin AST ALT Alkaline Phosphatase Lactate Dehydrogenase Troponin T C-Reactive Protein Total Protein Albumin Prealbumin Triglycerides Cholesterol LDL Cholesterol Direct HDL Cholesterol Urine pH Urine WBC (Auto) Urine Creatinine Urine Total Protein Fluid Total Protein Vancomycin Trough Rheumatoid Factor Complement C4 Miscellaneous Test Crossmatch 11/29/16 11/29/16 11/29/16 03:33 04:52 05:10 WBC RBC Hgb Hct MCV MCH MCHC RDW Plt Count Lymph % (Auto) [place] % (Auto) Lymph # [place] # Baso # Seg Neutrophils % Seg Neuts % (Manual) Lymphocytes % (Manual) Monocytes % (Manual) Eosinophils % (Manual) Basophils % (Manual) Nucleated RBC % Seg Neutrophils # Seg Neutrophils # Man Lymphocytes # (Manual) Monocytes # (Manual) Eosinophils # (Manual) Basophils # (Manual) PT INR Fibrinogen dRVVT Confirm Interp Factor V Activity POC ABG pH POC ABG pCO2 POC ABG pO2 ABG pO2 ABG HCO3 ABG Base Excess ABG Hemoglobin 7.0 L Oxyhemoglobin 94.9 L Sodium Potassium Chloride Carbon Dioxide BUN 73 H Creatinine 2.7 H Glucose POC Glucose 108 H Lactic Acid Calcium Phosphorus Magnesium Direct Bilirubin AST ALT Alkaline Phosphatase Lactate Dehydrogenase Troponin T C-Reactive Protein Total Protein Albumin Prealbumin Triglycerides Cholesterol LDL Cholesterol Direct HDL Cholesterol Urine pH Urine WBC (Auto) Urine Creatinine Urine Total Protein Fluid Total Protein Vancomycin Trough Rheumatoid Factor Complement C4 Miscellaneous Test Crossmatch 11/29/16 11/29/16 11/29/16 12:16 18:05 23:46 WBC RBC Hgb Hct MCV MCH MCHC RDW Plt Count Lymph % (Auto) [place] % (Auto) Lymph # [place] # Baso # Seg Neutrophils % Seg Neuts % (Manual) Lymphocytes % (Manual) Monocytes % (Manual) Eosinophils % (Manual) Basophils % (Manual) Nucleated RBC % Seg Neutrophils # Seg Neutrophils # Man Lymphocytes # (Manual) Monocytes # (Manual) Eosinophils # (Manual) Basophils # (Manual) PT INR Fibrinogen dRVVT Confirm Interp Factor V Activity POC ABG pH POC ABG pCO2 POC ABG pO2 ABG pO2 ABG HCO3 ABG Base Excess ABG Hemoglobin Oxyhemoglobin Sodium Potassium Chloride Carbon Dioxide BUN Creatinine Glucose POC Glucose 133 H 146 H 141 H Lactic Acid Calcium Phosphorus Magnesium Direct Bilirubin AST ALT Alkaline Phosphatase Lactate Dehydrogenase Troponin T C-Reactive Protein Total Protein Albumin Prealbumin Triglycerides Cholesterol LDL Cholesterol Direct HDL Cholesterol Urine pH Urine WBC (Auto) Urine Creatinine Urine Total Protein Fluid Total Protein Vancomycin Trough Rheumatoid Factor Complement C4 Miscellaneous Test Crossmatch 11/30/16 11/30/16 11/30/16 04:17 04:17 04:32 WBC 12.0 H RBC 2.80 L Hgb 7.8 L Hct 23.6 L MCV MCH MCHC RDW 16.6 H Plt Count Lymph % (Auto) [place] % (Auto) 11.3 H Lymph # [place] # 1.4 H Baso # Seg Neutrophils % Seg Neuts % (Manual) Lymphocytes % (Manual) Monocytes % (Manual) Eosinophils % (Manual) Basophils % (Manual) Nucleated RBC % Seg Neutrophils # 8.2 H Seg Neutrophils # Man Lymphocytes # (Manual) Monocytes # (Manual) Eosinophils # (Manual) Basophils # (Manual) PT INR Fibrinogen dRVVT Confirm Interp Factor V Activity POC ABG pH POC ABG pCO2 POC ABG pO2 ABG pO2 ABG HCO3 ABG Base Excess ABG Hemoglobin Oxyhemoglobin Sodium 169 H* D Potassium 5.1 H Chloride 121.5 H Carbon Dioxide BUN 34 H Creatinine 1.3 H D Glucose 133 H POC Glucose 131 H Lactic Acid Calcium 10.3 H Phosphorus Magnesium Direct Bilirubin AST ALT Alkaline Phosphatase Lactate Dehydrogenase Troponin T C-Reactive Protein Total Protein Albumin Prealbumin Triglycerides Cholesterol LDL Cholesterol Direct HDL Cholesterol Urine pH Urine WBC (Auto) Urine Creatinine Urine Total Protein Fluid Total Protein Vancomycin Trough Rheumatoid Factor Complement C4 Miscellaneous Test Crossmatch 11/30/16 11/30/16 11/30/16 05:45 11:10 17:26 WBC RBC Hgb Hct MCV MCH MCHC RDW Plt Count Lymph % (Auto) [place] % (Auto) Lymph # [place] # Baso # Seg Neutrophils % Seg Neuts % (Manual) Lymphocytes % (Manual) Monocytes % (Manual) Eosinophils % (Manual) Basophils % (Manual) Nucleated RBC % Seg Neutrophils # Seg Neutrophils # Man Lymphocytes # (Manual) Monocytes # (Manual) Eosinophils # (Manual) Basophils # (Manual) PT INR Fibrinogen dRVVT Confirm Interp Factor V Activity POC ABG pH POC ABG pCO2 POC ABG pO2 ABG pO2 ABG HCO3 ABG Base Excess ABG Hemoglobin Oxyhemoglobin Sodium Potassium Chloride Carbon Dioxide BUN 45 H Creatinine 1.6 H Glucose 131 H POC Glucose 146 H 134 H Lactic Acid Calcium Phosphorus Magnesium Direct Bilirubin AST ALT Alkaline Phosphatase Lactate Dehydrogenase Troponin T C-Reactive Protein Total Protein Albumin Prealbumin Triglycerides Cholesterol LDL Cholesterol Direct HDL Cholesterol Urine pH Urine WBC (Auto) Urine Creatinine Urine Total Protein Fluid Total Protein Vancomycin Trough Rheumatoid Factor Complement C4 Miscellaneous Test Crossmatch 11/30/16 12/01/16 12/01/16 23:35 00:06 03:35 WBC RBC Hgb Hct MCV MCH MCHC RDW Plt Count Lymph % (Auto) [place] % (Auto) Lymph # [place] # Baso # Seg Neutrophils % Seg Neuts % (Manual) Lymphocytes % (Manual) Monocytes % (Manual) Eosinophils % (Manual) Basophils % (Manual) Nucleated RBC % Seg Neutrophils # Seg Neutrophils # Man Lymphocytes # (Manual) Monocytes # (Manual) Eosinophils # (Manual) Basophils # (Manual) PT INR Fibrinogen dRVVT Confirm Interp Factor V Activity POC ABG pH POC ABG pCO2 POC ABG pO2 ABG pO2 ABG HCO3 ABG Base Excess ABG Hemoglobin 6.9 L Oxyhemoglobin Sodium Potassium Chloride Carbon Dioxide BUN 58 H Creatinine 1.8 H Glucose 146 H POC Glucose 151 H Lactic Acid Calcium Phosphorus Magnesium Direct Bilirubin AST ALT Alkaline Phosphatase Lactate Dehydrogenase Troponin T C-Reactive Protein Total Protein Albumin Prealbumin Triglycerides Cholesterol LDL Cholesterol Direct HDL Cholesterol Urine pH Urine WBC (Auto) Urine Creatinine Urine Total Protein Fluid Total Protein Vancomycin Trough Rheumatoid Factor Complement C4 Miscellaneous Test Crossmatch 12/01/16 12/01/1617 03:35 05:47 11:52 WBC 12.3 H RBC 2.82 L Hgb 7.8 L Hct 23.7 L MCV MCH MCHC RDW 16.7 H Plt Count Lymph % (Auto) [place] % (Auto) 9.8 H Lymph # [place] # 1.2 H Baso # Seg Neutrophils % Seg Neuts % (Manual) Lymphocytes % (Manual) Monocytes % (Manual) Eosinophils % (Manual) Basophils % (Manual) Nucleated RBC % Seg Neutrophils # 8.4 H Seg Neutrophils # Man Lymphocytes # (Manual) Monocytes # (Manual) Eosinophils # (Manual) Basophils # (Manual) PT INR Fibrinogen dRVVT Confirm Interp Factor V Activity POC ABG pH POC ABG pCO2 POC ABG pO2 ABG pO2 ABG HCO3 ABG Base Excess ABG Hemoglobin Oxyhemoglobin Sodium Potassium Chloride Carbon Dioxide BUN Creatinine Glucose POC Glucose 152 H 152 H Lactic Acid Calcium Phosphorus Magnesium Direct Bilirubin AST ALT Alkaline Phosphatase Lactate Dehydrogenase Troponin T C-Reactive Protein Total Protein Albumin Prealbumin Triglycerides Cholesterol LDL Cholesterol Direct HDL Cholesterol Urine pH Urine WBC (Auto) Urine Creatinine Urine Total Protein Fluid Total Protein Vancomycin Trough Rheumatoid Factor Complement C4 Miscellaneous Test Crossmatch 12/01/16 12/01/16 12/02/16 17:40 23:41 05:00 WBC RBC Hgb Hct MCV MCH MCHC RDW Plt Count Lymph % (Auto) [place] % (Auto) Lymph # [place] # Baso # Seg Neutrophils % Seg Neuts % (Manual) Lymphocytes % (Manual) Monocytes % (Manual) Eosinophils % (Manual) Basophils % (Manual) Nucleated RBC % Seg Neutrophils # Seg Neutrophils # Man Lymphocytes # (Manual) Monocytes # (Manual) Eosinophils # (Manual) Basophils # (Manual) PT INR Fibrinogen dRVVT Confirm Interp Factor V Activity POC ABG pH POC ABG pCO2 POC ABG pO2 ABG pO2 ABG HCO3 ABG Base Excess ABG Hemoglobin Oxyhemoglobin Sodium Potassium Chloride Carbon Dioxide BUN 45 H Creatinine Glucose 115 H POC Glucose 140 H 144 H Lactic Acid Calcium Phosphorus Magnesium Direct Bilirubin AST ALT Alkaline Phosphatase Lactate Dehydrogenase Troponin T C-Reactive Protein Total Protein Albumin Prealbumin Triglycerides Cholesterol LDL Cholesterol Direct HDL Cholesterol Urine pH Urine WBC (Auto) Urine Creatinine Urine Total Protein Fluid Total Protein Vancomycin Trough Rheumatoid Factor Complement C4 Miscellaneous Test Crossmatch 12/02/16 12/02/16 12/02/16 05:31 11:20 17:38 WBC RBC Hgb Hct MCV MCH MCHC RDW Plt Count Lymph % (Auto) [place] % (Auto) Lymph # [place] # Baso # Seg Neutrophils % Seg Neuts % (Manual) Lymphocytes % (Manual) Monocytes % (Manual) Eosinophils % (Manual) Basophils % (Manual) Nucleated RBC % Seg Neutrophils # Seg Neutrophils # Man Lymphocytes # (Manual) Monocytes # (Manual) Eosinophils # (Manual) Basophils # (Manual) PT INR Fibrinogen dRVVT Confirm Interp Factor V Activity POC ABG pH POC ABG pCO2 POC ABG pO2 ABG pO2 ABG HCO3 ABG Base Excess ABG Hemoglobin Oxyhemoglobin Sodium Potassium Chloride Carbon Dioxide BUN Creatinine Glucose POC Glucose 136 H 177 H 139 H Lactic Acid Calcium Phosphorus Magnesium Direct Bilirubin AST ALT Alkaline Phosphatase Lactate Dehydrogenase Troponin T C-Reactive Protein Total Protein Albumin Prealbumin Triglycerides Cholesterol LDL Cholesterol Direct HDL Cholesterol Urine pH Urine WBC (Auto) Urine Creatinine Urine Total Protein Fluid Total Protein Vancomycin Trough Rheumatoid Factor Complement C4 Miscellaneous Test Crossmatch 12/02/16 12/03/16 12/03/16 23:43 04:00 04:00 WBC 20.4 H RBC 2.74 L Hgb 7.4 L Hct 23.6 L MCV MCH 27 L MCHC RDW 17.1 H Plt Count Lymph % (Auto) [place] % (Auto) Lymph # [place] # Baso # Seg Neutrophils % Seg Neuts % (Manual) 31.0 L Lymphocytes % (Manual) Monocytes % (Manual) Eosinophils % (Manual) Basophils % (Manual) Nucleated RBC % Seg Neutrophils # Seg Neutrophils # Man Lymphocytes # (Manual) Monocytes # (Manual) Eosinophils # (Manual) Basophils # (Manual) PT INR Fibrinogen dRVVT Confirm Interp Factor V Activity POC ABG pH POC ABG pCO2 POC ABG pO2 ABG pO2 ABG HCO3 ABG Base Excess ABG Hemoglobin Oxyhemoglobin Sodium Potassium Chloride Carbon Dioxide BUN 61 H Creatinine 1.6 H Glucose 119 H POC Glucose 158 H Lactic Acid Calcium Phosphorus Magnesium Direct Bilirubin AST ALT Alkaline Phosphatase Lactate Dehydrogenase Troponin T C-Reactive Protein Total Protein Albumin Prealbumin Triglycerides Cholesterol LDL Cholesterol Direct HDL Cholesterol Urine pH Urine WBC (Auto) Urine Creatinine Urine Total Protein Fluid Total Protein Vancomycin Trough Rheumatoid Factor Complement C4 Miscellaneous Test Crossmatch 12/03/16 12/03/16 12/03/16 05:02 12:11 18:16 WBC RBC Hgb Hct MCV MCH MCHC RDW Plt Count Lymph % (Auto) [place] % (Auto) Lymph # [place] # Baso # Seg Neutrophils % Seg Neuts % (Manual) Lymphocytes % (Manual) Monocytes % (Manual) Eosinophils % (Manual) Basophils % (Manual) Nucleated RBC % Seg Neutrophils # Seg Neutrophils # Man Lymphocytes # (Manual) Monocytes # (Manual) Eosinophils # (Manual) Basophils # (Manual) PT INR Fibrinogen dRVVT Confirm Interp Factor V Activity POC ABG pH POC ABG pCO2 POC ABG pO2 ABG pO2 ABG HCO3 ABG Base Excess ABG Hemoglobin Oxyhemoglobin Sodium Potassium Chloride Carbon Dioxide BUN Creatinine Glucose POC Glucose 146 H 157 H 124 H Lactic Acid Calcium Phosphorus Magnesium Direct Bilirubin AST ALT Alkaline Phosphatase Lactate Dehydrogenase Troponin T C-Reactive Protein Total Protein Albumin Prealbumin Triglycerides Cholesterol LDL Cholesterol Direct HDL Cholesterol Urine pH Urine WBC (Auto) Urine Creatinine Urine Total Protein Fluid Total Protein Vancomycin Trough Rheumatoid Factor Complement C4 Miscellaneous Test Crossmatch 12/03/16 12/04/16 12/04/16 23:41 04:00 04:45 WBC RBC Hgb Hct MCV MCH MCHC RDW Plt Count Lymph % (Auto) [place] % (Auto) Lymph # [place] # Baso # Seg Neutrophils % Seg Neuts % (Manual) Lymphocytes % (Manual) Monocytes % (Manual) Eosinophils % (Manual) Basophils % (Manual) Nucleated RBC % Seg Neutrophils # Seg Neutrophils # Man Lymphocytes # (Manual) Monocytes # (Manual) Eosinophils # (Manual) Basophils # (Manual) PT INR Fibrinogen dRVVT Confirm Interp Factor V Activity POC ABG pH POC ABG pCO2 POC ABG pO2 ABG pO2 ABG HCO3 ABG Base Excess ABG Hemoglobin Oxyhemoglobin Sodium Potassium Chloride Carbon Dioxide BUN 76 H Creatinine 1.6 H Glucose POC Glucose 130 H 136 H Lactic Acid Calcium Phosphorus Magnesium Direct Bilirubin AST ALT Alkaline Phosphatase 155 H Lactate Dehydrogenase Troponin T C-Reactive Protein Total Protein 5.5 L Albumin 1.5 L Prealbumin Triglycerides Cholesterol LDL Cholesterol Direct HDL Cholesterol Urine pH Urine WBC (Auto) Urine Creatinine Urine Total Protein Fluid Total Protein Vancomycin Trough Rheumatoid Factor Complement C4 Miscellaneous Test Crossmatch 12/04/16 12/04/16 12/05/16 12:08 17:23 00:10 WBC RBC Hgb Hct MCV MCH MCHC RDW Plt Count Lymph % (Auto) [place] % (Auto) Lymph # [place] # Baso # Seg Neutrophils % Seg Neuts % (Manual) Lymphocytes % (Manual) Monocytes % (Manual) Eosinophils % (Manual) Basophils % (Manual) Nucleated RBC % Seg Neutrophils # Seg Neutrophils # Man Lymphocytes # (Manual) Monocytes # (Manual) Eosinophils # (Manual) Basophils # (Manual) PT INR Fibrinogen dRVVT Confirm Interp Factor V Activity POC ABG pH POC ABG pCO2 POC ABG pO2 ABG pO2 ABG HCO3 ABG Base Excess ABG Hemoglobin Oxyhemoglobin Sodium Potassium Chloride Carbon Dioxide BUN Creatinine Glucose POC Glucose 114 H 129 H 124 H Lactic Acid Calcium Phosphorus Magnesium Direct Bilirubin AST ALT Alkaline Phosphatase Lactate Dehydrogenase Troponin T C-Reactive Protein Total Protein Albumin Prealbumin Triglycerides Cholesterol LDL Cholesterol Direct HDL Cholesterol Urine pH Urine WBC (Auto) Urine Creatinine Urine Total Protein Fluid Total Protein Vancomycin Trough Rheumatoid Factor Complement C4 Miscellaneous Test Crossmatch 12/05/16 12/05/16 12/05/16 05:00 05:00 05:18 WBC RBC Hgb Hct MCV MCH MCHC RDW Plt Count Lymph % (Auto) [place] % (Auto) Lymph # [place] # Baso # Seg Neutrophils % Seg Neuts % (Manual) Lymphocytes % (Manual) Monocytes % (Manual) Eosinophils % (Manual) Basophils % (Manual) Nucleated RBC % Seg Neutrophils # Seg Neutrophils # Man Lymphocytes # (Manual) Monocytes # (Manual) Eosinophils # (Manual) Basophils # (Manual) PT INR Fibrinogen dRVVT Confirm Interp Factor V Activity POC ABG pH POC ABG pCO2 POC ABG pO2 ABG pO2 ABG HCO3 ABG Base Excess ABG Hemoglobin Oxyhemoglobin Sodium Potassium Chloride Carbon Dioxide 21 L BUN 85 H Creatinine 1.9 H Glucose 131 H POC Glucose 154 H Lactic Acid Calcium Phosphorus Magnesium Direct Bilirubin AST ALT Alkaline Phosphatase Lactate Dehydrogenase Troponin T C-Reactive Protein 19.30 H Total Protein Albumin Prealbumin Triglycerides Cholesterol LDL Cholesterol Direct HDL Cholesterol Urine pH Urine WBC (Auto) Urine Creatinine Urine Total Protein Fluid Total Protein Vancomycin Trough Rheumatoid Factor Complement C4 Miscellaneous Test Crossmatch 12/05/16 12/05/16 12/05/16 11:43 17:46 23:25 WBC RBC Hgb Hct MCV MCH MCHC RDW Plt Count Lymph % (Auto) [place] % (Auto) Lymph # [place] # Baso # Seg Neutrophils % Seg Neuts % (Manual) Lymphocytes % (Manual) Monocytes % (Manual) Eosinophils % (Manual) Basophils % (Manual) Nucleated RBC % Seg Neutrophils # Seg Neutrophils # Man Lymphocytes # (Manual) Monocytes # (Manual) Eosinophils # (Manual) Basophils # (Manual) PT INR Fibrinogen dRVVT Confirm Interp Factor V Activity POC ABG pH POC ABG pCO2 POC ABG pO2 ABG pO2 ABG HCO3 ABG Base Excess ABG Hemoglobin Oxyhemoglobin Sodium Potassium Chloride Carbon Dioxide BUN Creatinine Glucose POC Glucose 117 H 113 H 111 H Lactic Acid Calcium Phosphorus Magnesium Direct Bilirubin AST ALT Alkaline Phosphatase Lactate Dehydrogenase Troponin T C-Reactive Protein Total Protein Albumin Prealbumin Triglycerides Cholesterol LDL Cholesterol Direct HDL Cholesterol Urine pH Urine WBC (Auto) Urine Creatinine Urine Total Protein Fluid Total Protein Vancomycin Trough Rheumatoid Factor Complement C4 Miscellaneous Test Crossmatch 12/05/16 12/06/16 12/06/16 Unknown 04:58 06:00 WBC RBC Hgb Hct MCV MCH MCHC RDW Plt Count Lymph % (Auto) [place] % (Auto) Lymph # [place] # Baso # Seg Neutrophils % Seg Neuts % (Manual) Lymphocytes % (Manual) Monocytes % (Manual) Eosinophils % (Manual) Basophils % (Manual) Nucleated RBC % Seg Neutrophils # Seg Neutrophils # Man Lymphocytes # (Manual) Monocytes # (Manual) Eosinophils # (Manual) Basophils # (Manual) PT INR Fibrinogen dRVVT Confirm Interp Factor V Activity POC ABG pH POC ABG pCO2 POC ABG pO2 ABG pO2 75.2 L ABG HCO3 ABG Base Excess -3.4 L ABG Hemoglobin 7.4 L Oxyhemoglobin 94.5 L Sodium Potassium Chloride Carbon Dioxide 20 L BUN 99 H Creatinine 2.1 H Glucose 126 H POC Glucose 145 H Lactic Acid Calcium Phosphorus 4.80 H Magnesium Direct Bilirubin AST ALT Alkaline Phosphatase Lactate Dehydrogenase Troponin T C-Reactive Protein Total Protein Albumin Prealbumin Triglycerides Cholesterol LDL Cholesterol Direct HDL Cholesterol Urine pH Urine WBC (Auto) Urine Creatinine Urine Total Protein Fluid Total Protein Vancomycin Trough Rheumatoid Factor Complement C4 Miscellaneous Test Crossmatch 12/06/16 12/06/16 12/06/16 06:46 11:54 17:55 WBC RBC Hgb 8.3 L Hct 26.4 L MCV MCH MCHC RDW Plt Count Lymph % (Auto) [place] % (Auto) Lymph # [place] # Baso # Seg Neutrophils % Seg Neuts % (Manual) Lymphocytes % (Manual) Monocytes % (Manual) Eosinophils % (Manual) Basophils % (Manual) Nucleated RBC % Seg Neutrophils # Seg Neutrophils # Man Lymphocytes # (Manual) Monocytes # (Manual) Eosinophils # (Manual) Basophils # (Manual) PT INR Fibrinogen dRVVT Confirm Interp Factor V Activity POC ABG pH POC ABG pCO2 POC ABG pO2 ABG pO2 ABG HCO3 ABG Base Excess ABG Hemoglobin Oxyhemoglobin Sodium Potassium Chloride Carbon Dioxide BUN Creatinine Glucose POC Glucose 126 H 157 H Lactic Acid Calcium Phosphorus Magnesium Direct Bilirubin AST ALT Alkaline Phosphatase Lactate Dehydrogenase Troponin T C-Reactive Protein Total Protein Albumin Prealbumin Triglycerides Cholesterol LDL Cholesterol Direct HDL Cholesterol Urine pH Urine WBC (Auto) Urine Creatinine Urine Total Protein Fluid Total Protein Vancomycin Trough Rheumatoid Factor Complement C4 Miscellaneous Test Crossmatch 12/06/16 12/07/16 12/07/16 23:59 05:34 06:30 WBC RBC Hgb Hct MCV MCH MCHC RDW Plt Count Lymph % (Auto) [place] % (Auto) Lymph # [place] # Baso # Seg Neutrophils % Seg Neuts % (Manual) Lymphocytes % (Manual) Monocytes % (Manual) Eosinophils % (Manual) Basophils % (Manual) Nucleated RBC % Seg Neutrophils # Seg Neutrophils # Man Lymphocytes # (Manual) Monocytes # (Manual) Eosinophils # (Manual) Basophils # (Manual) PT INR Fibrinogen dRVVT Confirm Interp Factor V Activity POC ABG pH POC ABG pCO2 POC ABG pO2 ABG pO2 ABG HCO3 ABG Base Excess ABG Hemoglobin Oxyhemoglobin Sodium Potassium Chloride Carbon Dioxide BUN 67 H Creatinine 1.4 H Glucose 126 H POC Glucose 129 H 129 H Lactic Acid Calcium Phosphorus Magnesium Direct Bilirubin AST ALT Alkaline Phosphatase Lactate Dehydrogenase Troponin T C-Reactive Protein Total Protein Albumin Prealbumin Triglycerides Cholesterol LDL Cholesterol Direct HDL Cholesterol Urine pH Urine WBC (Auto) Urine Creatinine Urine Total Protein Fluid Total Protein Vancomycin Trough Rheumatoid Factor Complement C4 Miscellaneous Test Crossmatch 12/07/16 12/07/16 12/07/16 06:30 08:00 09:45 WBC 18.8 H RBC 2.52 L Hgb 6.9 L 6.8 L Hct 21.2 L 21.1 L MCV MCH 27 L MCHC RDW 18.0 H Plt Count Lymph % (Auto) [place] % (Auto) 9.9 H Lymph # [place] # 1.9 H Baso # Seg Neutrophils % 71.8 H Seg Neuts % (Manual) Lymphocytes % (Manual) Monocytes % (Manual) Eosinophils % (Manual) Basophils % (Manual) Nucleated RBC % Seg Neutrophils # 13.5 H Seg Neutrophils # Man Lymphocytes # (Manual) Monocytes # (Manual) Eosinophils # (Manual) Basophils # (Manual) PT INR Fibrinogen dRVVT Confirm Interp Factor V Activity POC ABG pH POC ABG pCO2 POC ABG pO2 ABG pO2 ABG HCO3 ABG Base Excess ABG Hemoglobin Oxyhemoglobin Sodium Potassium Chloride Carbon Dioxide BUN Creatinine Glucose POC Glucose Lactic Acid Calcium Phosphorus Magnesium Direct Bilirubin AST ALT Alkaline Phosphatase Lactate Dehydrogenase Troponin T C-Reactive Protein Total Protein Albumin Prealbumin Triglycerides Cholesterol LDL Cholesterol Direct HDL Cholesterol Urine pH Urine WBC (Auto) Urine Creatinine Urine Total Protein Fluid Total Protein Vancomycin Trough Rheumatoid Factor Complement C4 Miscellaneous Test Crossmatch See Detail 12/07/16 12/07/16 12/07/16 11:44 18:19 23:59 WBC RBC Hgb Hct MCV MCH MCHC RDW Plt Count Lymph % (Auto) [place] % (Auto) Lymph # [place] # Baso # Seg Neutrophils % Seg Neuts % (Manual) Lymphocytes % (Manual) Monocytes % (Manual) Eosinophils % (Manual) Basophils % (Manual) Nucleated RBC % Seg Neutrophils # Seg Neutrophils # Man Lymphocytes # (Manual) Monocytes # (Manual) Eosinophils # (Manual) Basophils # (Manual) PT INR Fibrinogen dRVVT Confirm Interp Factor V Activity POC ABG pH POC ABG pCO2 POC ABG pO2 ABG pO2 ABG HCO3 ABG Base Excess ABG Hemoglobin Oxyhemoglobin Sodium Potassium Chloride Carbon Dioxide BUN Creatinine Glucose POC Glucose 137 H 138 H 133 H Lactic Acid Calcium Phosphorus Magnesium Direct Bilirubin AST ALT Alkaline Phosphatase Lactate Dehydrogenase Troponin T C-Reactive Protein Total Protein Albumin Prealbumin Triglycerides Cholesterol LDL Cholesterol Direct HDL Cholesterol Urine pH Urine WBC (Auto) Urine Creatinine Urine Total Protein Fluid Total Protein Vancomycin Trough Rheumatoid Factor Complement C4 Miscellaneous Test Crossmatch 12/08/16 12/08/16 12/08/16 05:25 05:30 05:30 WBC 23.8 H RBC 2.88 L Hgb 8.1 L Hct 24.3 L MCV MCH MCHC RDW 16.7 H Plt Count Lymph % (Auto) [place] % (Auto) Lymph # [place] # Baso # Seg Neutrophils % Seg Neuts % (Manual) 76.0 H Lymphocytes % (Manual) 9.0 L Monocytes % (Manual) 9.0 H Eosinophils % (Manual) Basophils % (Manual) Nucleated RBC % Seg Neutrophils # Seg Neutrophils # Man 18.1 H Lymphocytes # (Manual) Monocytes # (Manual) 2.1 H Eosinophils # (Manual) Basophils # (Manual) PT INR Fibrinogen dRVVT Confirm Interp Factor V Activity POC ABG pH POC ABG pCO2 POC ABG pO2 ABG pO2 ABG HCO3 ABG Base Excess ABG Hemoglobin Oxyhemoglobin Sodium Potassium Chloride Carbon Dioxide 21 L BUN 76 H Creatinine 1.6 H Glucose 133 H POC Glucose 177 H Lactic Acid Calcium Phosphorus Magnesium Direct Bilirubin AST ALT Alkaline Phosphatase Lactate Dehydrogenase Troponin T C-Reactive Protein Total Protein Albumin Prealbumin Triglycerides Cholesterol LDL Cholesterol Direct HDL Cholesterol Urine pH Urine WBC (Auto) Urine Creatinine Urine Total Protein Fluid Total Protein Vancomycin Trough Rheumatoid Factor Complement C4 Miscellaneous Test Crossmatch 12/08/16 12/08/16 12/09/16 11:45 18:00 00:00 WBC RBC Hgb Hct MCV MCH MCHC RDW Plt Count Lymph % (Auto) [place] % (Auto) Lymph # [place] # Baso # Seg Neutrophils % Seg Neuts % (Manual) Lymphocytes % (Manual) Monocytes % (Manual) Eosinophils % (Manual) Basophils % (Manual) Nucleated RBC % Seg Neutrophils # Seg Neutrophils # Man Lymphocytes # (Manual) Monocytes # (Manual) Eosinophils # (Manual) Basophils # (Manual) PT INR Fibrinogen dRVVT Confirm Interp Factor V Activity POC ABG pH POC ABG pCO2 POC ABG pO2 ABG pO2 ABG HCO3 ABG Base Excess ABG Hemoglobin Oxyhemoglobin Sodium Potassium Chloride Carbon Dioxide BUN Creatinine Glucose POC Glucose 163 H 123 H 137 H Lactic Acid Calcium Phosphorus Magnesium Direct Bilirubin AST ALT Alkaline Phosphatase Lactate Dehydrogenase Troponin T C-Reactive Protein Total Protein Albumin Prealbumin Triglycerides Cholesterol LDL Cholesterol Direct HDL Cholesterol Urine pH Urine WBC (Auto) Urine Creatinine Urine Total Protein Fluid Total Protein Vancomycin Trough Rheumatoid Factor Complement C4 Miscellaneous Test Crossmatch 12/09/16 12/09/16 12/09/16 05:34 06:00 06:00 WBC 15.5 H RBC 2.87 L Hgb 8.0 L Hct 24.2 L MCV MCH MCHC RDW 17.2 H Plt Count Lymph % (Auto) [place] % (Auto) 11.6 H Lymph # [place] # 1.8 H Baso # Seg Neutrophils % 70.8 H Seg Neuts % (Manual) Lymphocytes % (Manual) Monocytes % (Manual) Eosinophils % (Manual) Basophils % (Manual) Nucleated RBC % Seg Neutrophils # 11.0 H Seg Neutrophils # Man Lymphocytes # (Manual) Monocytes # (Manual) Eosinophils # (Manual) Basophils # (Manual) PT INR Fibrinogen dRVVT Confirm Interp Factor V Activity POC ABG pH POC ABG pCO2 POC ABG pO2 ABG pO2 ABG HCO3 ABG Base Excess ABG Hemoglobin Oxyhemoglobin Sodium Potassium Chloride Carbon Dioxide BUN 51 H Creatinine Glucose 117 H POC Glucose 136 H Lactic Acid Calcium Phosphorus Magnesium Direct Bilirubin AST ALT Alkaline Phosphatase Lactate Dehydrogenase Troponin T C-Reactive Protein Total Protein Albumin Prealbumin Triglycerides Cholesterol LDL Cholesterol Direct HDL Cholesterol Urine pH Urine WBC (Auto) Urine Creatinine Urine Total Protein Fluid Total Protein Vancomycin Trough Rheumatoid Factor Complement C4 Miscellaneous Test Crossmatch 12/09/16 12/09/16 12/09/16 12:29 17:52 23:10 WBC RBC Hgb Hct MCV MCH MCHC RDW Plt Count Lymph % (Auto) [place] % (Auto) Lymph # [place] # Baso # Seg Neutrophils % Seg Neuts % (Manual) Lymphocytes % (Manual) Monocytes % (Manual) Eosinophils % (Manual) Basophils % (Manual) Nucleated RBC % Seg Neutrophils # Seg Neutrophils # Man Lymphocytes # (Manual) Monocytes # (Manual) Eosinophils # (Manual) Basophils # (Manual) PT INR Fibrinogen dRVVT Confirm Interp Factor V Activity POC ABG pH POC ABG pCO2 POC ABG pO2 ABG pO2 ABG HCO3 ABG Base Excess ABG Hemoglobin Oxyhemoglobin Sodium Potassium Chloride Carbon Dioxide BUN Creatinine Glucose POC Glucose 139 H 140 H 129 H Lactic Acid Calcium Phosphorus Magnesium Direct Bilirubin AST ALT Alkaline Phosphatase Lactate Dehydrogenase Troponin T C-Reactive Protein Total Protein Albumin Prealbumin Triglycerides Cholesterol LDL Cholesterol Direct HDL Cholesterol Urine pH Urine WBC (Auto) Urine Creatinine Urine Total Protein Fluid Total Protein Vancomycin Trough Rheumatoid Factor Complement C4 Miscellaneous Test Crossmatch 12/10/16 12/10/16 12/10/16 05:00 05:00 06:54 WBC 15.7 H RBC 2.87 L Hgb 8.2 L Hct 24.4 L MCV MCH MCHC RDW 17.2 H Plt Count Lymph % (Auto) [place] % (Auto) 8.3 H Lymph # [place] # 1.3 H Baso # Seg Neutrophils % 72.8 H Seg Neuts % (Manual) Lymphocytes % (Manual) Monocytes % (Manual) Eosinophils % (Manual) Basophils % (Manual) Nucleated RBC % Seg Neutrophils # 11.4 H Seg Neutrophils # Man Lymphocytes # (Manual) Monocytes # (Manual) Eosinophils # (Manual) Basophils # (Manual) PT INR Fibrinogen dRVVT Confirm Interp Factor V Activity POC ABG pH POC ABG pCO2 POC ABG pO2 ABG pO2 ABG HCO3 ABG Base Excess ABG Hemoglobin Oxyhemoglobin Sodium Potassium Chloride Carbon Dioxide BUN 64 H Creatinine 1.4 H Glucose 134 H POC Glucose 154 H Lactic Acid Calcium Phosphorus Magnesium Direct Bilirubin AST ALT Alkaline Phosphatase Lactate Dehydrogenase Troponin T C-Reactive Protein Total Protein Albumin Prealbumin Triglycerides Cholesterol LDL Cholesterol Direct HDL Cholesterol Urine pH Urine WBC (Auto) Urine Creatinine Urine Total Protein Fluid Total Protein Vancomycin Trough Rheumatoid Factor Complement C4 Miscellaneous Test Crossmatch 12/10/16 12/10/16 12/10/16 11:58 17:29 23:52 WBC RBC Hgb Hct MCV MCH MCHC RDW Plt Count Lymph % (Auto) [place] % (Auto) Lymph # [place] # Baso # Seg Neutrophils % Seg Neuts % (Manual) Lymphocytes % (Manual) Monocytes % (Manual) Eosinophils % (Manual) Basophils % (Manual) Nucleated RBC % Seg Neutrophils # Seg Neutrophils # Man Lymphocytes # (Manual) Monocytes # (Manual) Eosinophils # (Manual) Basophils # (Manual) PT INR Fibrinogen dRVVT Confirm Interp Factor V Activity POC ABG pH POC ABG pCO2 POC ABG pO2 ABG pO2 ABG HCO3 ABG Base Excess ABG Hemoglobin Oxyhemoglobin Sodium Potassium Chloride Carbon Dioxide BUN Creatinine Glucose POC Glucose 144 H 163 H 125 H Lactic Acid Calcium Phosphorus Magnesium Direct Bilirubin AST ALT Alkaline Phosphatase Lactate Dehydrogenase Troponin T C-Reactive Protein Total Protein Albumin Prealbumin Triglycerides Cholesterol LDL Cholesterol Direct HDL Cholesterol Urine pH Urine WBC (Auto) Urine Creatinine Urine Total Protein Fluid Total Protein Vancomycin Trough Rheumatoid Factor Complement C4 Miscellaneous Test Crossmatch 12/11/16 12/11/16 12/11/16 05:38 06:30 06:30 WBC 14.4 H RBC 2.76 L Hgb 7.7 L Hct 23.4 L MCV MCH MCHC RDW 17.2 H Plt Count Lymph % (Auto) [place] % (Auto) 8.8 H Lymph # [place] # 1.3 H Baso # Seg Neutrophils % 72.5 H Seg Neuts % (Manual) Lymphocytes % (Manual) Monocytes % (Manual) Eosinophils % (Manual) Basophils % (Manual) Nucleated RBC % Seg Neutrophils # 10.5 H Seg Neutrophils # Man Lymphocytes # (Manual) Monocytes # (Manual) Eosinophils # (Manual) Basophils # (Manual) PT INR Fibrinogen dRVVT Confirm Interp Factor V Activity POC ABG pH POC ABG pCO2 POC ABG pO2 ABG pO2 ABG HCO3 ABG Base Excess ABG Hemoglobin Oxyhemoglobin Sodium Potassium Chloride Carbon Dioxide BUN 43 H Creatinine Glucose 124 H POC Glucose 141 H Lactic Acid Calcium 8.3 L Phosphorus Magnesium 1.60 L Direct Bilirubin AST ALT Alkaline Phosphatase Lactate Dehydrogenase Troponin T C-Reactive Protein Total Protein Albumin Prealbumin Triglycerides Cholesterol LDL Cholesterol Direct HDL Cholesterol Urine pH Urine WBC (Auto) Urine Creatinine Urine Total Protein Fluid Total Protein Vancomycin Trough Rheumatoid Factor Complement C4 Miscellaneous Test Crossmatch 12/11/16 12/11/16 12/11/16 11:15 17:59 23:48 WBC RBC Hgb Hct MCV MCH MCHC RDW Plt Count Lymph % (Auto) [place] % (Auto) Lymph # [place] # Baso # Seg Neutrophils % Seg Neuts % (Manual) Lymphocytes % (Manual) Monocytes % (Manual) Eosinophils % (Manual) Basophils % (Manual) Nucleated RBC % Seg Neutrophils # Seg Neutrophils # Man Lymphocytes # (Manual) Monocytes # (Manual) Eosinophils # (Manual) Basophils # (Manual) PT INR Fibrinogen dRVVT Confirm Interp Factor V Activity POC ABG pH POC ABG pCO2 POC ABG pO2 ABG pO2 ABG HCO3 ABG Base Excess ABG Hemoglobin Oxyhemoglobin Sodium Potassium Chloride Carbon Dioxide BUN Creatinine Glucose POC Glucose 188 H 106 H 119 H Lactic Acid Calcium Phosphorus Magnesium Direct Bilirubin AST ALT Alkaline Phosphatase Lactate Dehydrogenase Troponin T C-Reactive Protein Total Protein Albumin Prealbumin Triglycerides Cholesterol LDL Cholesterol Direct HDL Cholesterol Urine pH Urine WBC (Auto) Urine Creatinine Urine Total Protein Fluid Total Protein Vancomycin Trough Rheumatoid Factor Complement C4 Miscellaneous Test Crossmatch 12/12/16 12/12/16 12/12/16 05:00 06:01 12:20 WBC 16.7 H RBC 2.87 L Hgb 8.0 L Hct 24.2 L MCV MCH MCHC RDW 17.6 H Plt Count Lymph % (Auto) [place] % (Auto) Lymph # [place] # 1.2 H Baso # Seg Neutrophils % 75.3 H Seg Neuts % (Manual) Lymphocytes % (Manual) Monocytes % (Manual) Eosinophils % (Manual) Basophils % (Manual) Nucleated RBC % Seg Neutrophils # 12.6 H Seg Neutrophils # Man Lymphocytes # (Manual) Monocytes # (Manual) Eosinophils # (Manual) Basophils # (Manual) PT INR Fibrinogen dRVVT Confirm Interp Factor V Activity POC ABG pH POC ABG pCO2 POC ABG pO2 ABG pO2 ABG HCO3 ABG Base Excess ABG Hemoglobin Oxyhemoglobin Sodium Potassium Chloride Carbon Dioxide BUN Creatinine Glucose POC Glucose 134 H 149 H Lactic Acid Calcium Phosphorus Magnesium Direct Bilirubin AST ALT Alkaline Phosphatase Lactate Dehydrogenase Troponin T C-Reactive Protein Total Protein Albumin Prealbumin Triglycerides Cholesterol LDL Cholesterol Direct HDL Cholesterol Urine pH Urine WBC (Auto) Urine Creatinine Urine Total Protein Fluid Total Protein Vancomycin Trough Rheumatoid Factor Complement C4 Miscellaneous Test Crossmatch 12/12/16 12/12/16 12/12/16 17:38 23:01 Unknown WBC RBC Hgb Hct MCV MCH MCHC RDW Plt Count Lymph % (Auto) [place] % (Auto) Lymph # [place] # Baso # Seg Neutrophils % Seg Neuts % (Manual) Lymphocytes % (Manual) Monocytes % (Manual) Eosinophils % (Manual) Basophils % (Manual) Nucleated RBC % Seg Neutrophils # Seg Neutrophils # Man Lymphocytes # (Manual) Monocytes # (Manual) Eosinophils # (Manual) Basophils # (Manual) PT INR Fibrinogen dRVVT Confirm Interp Factor V Activity POC ABG pH POC ABG pCO2 POC ABG pO2 ABG pO2 ABG HCO3 ABG Base Excess ABG Hemoglobin Oxyhemoglobin Sodium Potassium Chloride Carbon Dioxide BUN 60 H Creatinine 1.3 H Glucose 126 H POC Glucose 127 H 144 H Lactic Acid Calcium Phosphorus Magnesium Direct Bilirubin AST ALT Alkaline Phosphatase Lactate Dehydrogenase Troponin T C-Reactive Protein Total Protein Albumin Prealbumin Triglycerides Cholesterol LDL Cholesterol Direct HDL Cholesterol Urine pH Urine WBC (Auto) Urine Creatinine Urine Total Protein Fluid Total Protein Vancomycin Trough Rheumatoid Factor Complement C4 Miscellaneous Test Crossmatch 12/13/16 12/13/16 12/13/16 04:00 04:00 05:19 WBC 18.7 H RBC 2.89 L Hgb 8.3 L Hct 24.6 L MCV MCH MCHC RDW 17.5 H Plt Count Lymph % (Auto) [place] % (Auto) Lymph # [place] # 1.3 H Baso # Seg Neutrophils % 71.5 H Seg Neuts % (Manual) Lymphocytes % (Manual) Monocytes % (Manual) Eosinophils % (Manual) Basophils % (Manual) Nucleated RBC % Seg Neutrophils # 13.4 H Seg Neutrophils # Man Lymphocytes # (Manual) Monocytes # (Manual) Eosinophils # (Manual) Basophils # (Manual) PT INR Fibrinogen dRVVT Confirm Interp Factor V Activity POC ABG pH POC ABG pCO2 POC ABG pO2 ABG pO2 ABG HCO3 ABG Base Excess ABG Hemoglobin Oxyhemoglobin Sodium Potassium Chloride Carbon Dioxide BUN 73 H Creatinine 1.5 H Glucose 141 H POC Glucose 171 H Lactic Acid Calcium Phosphorus Magnesium Direct Bilirubin AST ALT Alkaline Phosphatase Lactate Dehydrogenase Troponin T C-Reactive Protein Total Protein Albumin Prealbumin Triglycerides Cholesterol LDL Cholesterol Direct HDL Cholesterol Urine pH Urine WBC (Auto) Urine Creatinine Urine Total Protein Fluid Total Protein Vancomycin Trough Rheumatoid Factor Complement C4 Miscellaneous Test Crossmatch 12/13/16 12/13/16 12/14/16 12:28 16:48 00:01 WBC RBC Hgb Hct MCV MCH MCHC RDW Plt Count Lymph % (Auto) [place] % (Auto) Lymph # [place] # Baso # Seg Neutrophils % Seg Neuts % (Manual) Lymphocytes % (Manual) Monocytes % (Manual) Eosinophils % (Manual) Basophils % (Manual) Nucleated RBC % Seg Neutrophils # Seg Neutrophils # Man Lymphocytes # (Manual) Monocytes # (Manual) Eosinophils # (Manual) Basophils # (Manual) PT INR Fibrinogen dRVVT Confirm Interp Factor V Activity POC ABG pH POC ABG pCO2 POC ABG pO2 ABG pO2 ABG HCO3 ABG Base Excess ABG Hemoglobin Oxyhemoglobin Sodium Potassium Chloride Carbon Dioxide BUN Creatinine Glucose POC Glucose 206 H 173 H 139 H Lactic Acid Calcium Phosphorus Magnesium Direct Bilirubin AST ALT Alkaline Phosphatase Lactate Dehydrogenase Troponin T C-Reactive Protein Total Protein Albumin Prealbumin Triglycerides Cholesterol LDL Cholesterol Direct HDL Cholesterol Urine pH Urine WBC (Auto) Urine Creatinine Urine Total Protein Fluid Total Protein Vancomycin Trough Rheumatoid Factor Complement C4 Miscellaneous Test Crossmatch 12/14/16 12/14/16 12/14/16 05:16 06:10 11:17 WBC RBC Hgb Hct MCV MCH MCHC RDW Plt Count Lymph % (Auto) [place] % (Auto) Lymph # [place] # Baso # Seg Neutrophils % Seg Neuts % (Manual) Lymphocytes % (Manual) Monocytes % (Manual) Eosinophils % (Manual) Basophils % (Manual) Nucleated RBC % Seg Neutrophils # Seg Neutrophils # Man Lymphocytes # (Manual) Monocytes # (Manual) Eosinophils # (Manual) Basophils # (Manual) PT INR Fibrinogen dRVVT Confirm Interp Factor V Activity POC ABG pH POC ABG pCO2 POC ABG pO2 ABG pO2 ABG HCO3 ABG Base Excess ABG Hemoglobin Oxyhemoglobin Sodium Potassium Chloride Carbon Dioxide BUN 57 H Creatinine 1.4 H Glucose 135 H POC Glucose 158 H 137 H Lactic Acid Calcium Phosphorus Magnesium Direct Bilirubin AST ALT Alkaline Phosphatase Lactate Dehydrogenase Troponin T C-Reactive Protein Total Protein Albumin Prealbumin Triglycerides Cholesterol LDL Cholesterol Direct HDL Cholesterol Urine pH Urine WBC (Auto) Urine Creatinine Urine Total Protein Fluid Total Protein Vancomycin Trough Rheumatoid Factor Complement C4 Miscellaneous Test Crossmatch 12/14/16 12/14/16 12/15/16 17:52 23:27 04:00 WBC RBC Hgb Hct MCV MCH MCHC RDW Plt Count Lymph % (Auto) [place] % (Auto) Lymph # [place] # Baso # Seg Neutrophils % Seg Neuts % (Manual) Lymphocytes % (Manual) Monocytes % (Manual) Eosinophils % (Manual) Basophils % (Manual) Nucleated RBC % Seg Neutrophils # Seg Neutrophils # Man Lymphocytes # (Manual) Monocytes # (Manual) Eosinophils # (Manual) Basophils # (Manual) PT INR Fibrinogen dRVVT Confirm Interp Factor V Activity POC ABG pH POC ABG pCO2 POC ABG pO2 ABG pO2 ABG HCO3 ABG Base Excess ABG Hemoglobin Oxyhemoglobin Sodium Potassium Chloride 97.9 L Carbon Dioxide BUN 75 H Creatinine 1.6 H Glucose 122 H POC Glucose 149 H 163 H Lactic Acid Calcium Phosphorus 5.20 H Magnesium Direct Bilirubin AST ALT Alkaline Phosphatase Lactate Dehydrogenase Troponin T C-Reactive Protein Total Protein Albumin Prealbumin Triglycerides Cholesterol LDL Cholesterol Direct HDL Cholesterol Urine pH Urine WBC (Auto) Urine Creatinine Urine Total Protein Fluid Total Protein Vancomycin Trough Rheumatoid Factor Complement C4 Miscellaneous Test Crossmatch 12/15/16 12/15/16 12/15/16 05:50 11:24 17:01 WBC RBC Hgb Hct MCV MCH MCHC RDW Plt Count Lymph % (Auto) [place] % (Auto) Lymph # [place] # Baso # Seg Neutrophils % Seg Neuts % (Manual) Lymphocytes % (Manual) Monocytes % (Manual) Eosinophils % (Manual) Basophils % (Manual) Nucleated RBC % Seg Neutrophils # Seg Neutrophils # Man Lymphocytes # (Manual) Monocytes # (Manual) Eosinophils # (Manual) Basophils # (Manual) PT INR Fibrinogen dRVVT Confirm Interp Factor V Activity POC ABG pH POC ABG pCO2 POC ABG pO2 ABG pO2 ABG HCO3 ABG Base Excess ABG Hemoglobin Oxyhemoglobin Sodium Potassium Chloride Carbon Dioxide BUN Creatinine Glucose POC Glucose 150 H 146 H 167 H Lactic Acid Calcium Phosphorus Magnesium Direct Bilirubin AST ALT Alkaline Phosphatase Lactate Dehydrogenase Troponin T C-Reactive Protein Total Protein Albumin Prealbumin Triglycerides Cholesterol LDL Cholesterol Direct HDL Cholesterol Urine pH Urine WBC (Auto) Urine Creatinine Urine Total Protein Fluid Total Protein Vancomycin Trough Rheumatoid Factor Complement C4 Miscellaneous Test Crossmatch 12/15/16 12/16/16 12/16/16 23:34 05:25 11:24 WBC RBC Hgb Hct MCV MCH MCHC RDW Plt Count Lymph % (Auto) Coke % (Auto) Lymph # Coke # Baso # Seg Neutrophils % Seg Neuts % (Manual) Lymphocytes % (Manual) Monocytes % (Manual) Eosinophils % (Manual) Basophils % (Manual) Nucleated RBC % Seg Neutrophils # Seg Neutrophils # Man Lymphocytes # (Manual) Monocytes # (Manual) Eosinophils # (Manual) Basophils # (Manual) PT INR Fibrinogen dRVVT Confirm Interp Factor V Activity POC ABG pH POC ABG pCO2 POC ABG pO2 ABG pO2 ABG HCO3 ABG Base Excess ABG Hemoglobin Oxyhemoglobin Sodium Potassium Chloride Carbon Dioxide BUN Creatinine Glucose POC Glucose 127 H 139 H 165 H Lactic Acid Calcium Phosphorus Magnesium Direct Bilirubin AST ALT Alkaline Phosphatase Lactate Dehydrogenase Troponin T C-Reactive Protein Total Protein Albumin Prealbumin Triglycerides Cholesterol LDL Cholesterol Direct HDL Cholesterol Urine pH Urine WBC (Auto) Urine Creatinine Urine Total Protein Fluid Total Protein Vancomycin Trough Rheumatoid Factor Complement C4 Miscellaneous Test Crossmatch 12/16/16 12/16/16 12/16/16 15:30 16:25 17:31 WBC 17.8 H RBC 2.38 L Hgb 6.4 L Hct 20.3 L MCV MCH 27 L MCHC RDW 17.4 H Plt Count Lymph % (Auto) [place]ke % (Auto) Lymph # [place] # Baso # Seg Neutrophils % Seg Neuts % (Manual) Lymphocytes % (Manual) Monocytes % (Manual) 10.0 H Eosinophils % (Manual) Basophils % (Manual) Nucleated RBC % Seg Neutrophils # Seg Neutrophils # Man 8.5 H Lymphocytes # (Manual) Monocytes # (Manual) 1.8 H Eosinophils # (Manual) Basophils # (Manual) PT INR Fibrinogen dRVVT Confirm Interp Factor V Activity POC ABG pH POC ABG pCO2 POC ABG pO2 ABG pO2 ABG HCO3 ABG Base Excess ABG Hemoglobin Oxyhemoglobin Sodium Potassium Chloride Carbon Dioxide BUN Creatinine Glucose POC Glucose 176 H Lactic Acid Calcium Phosphorus Magnesium Direct Bilirubin AST ALT Alkaline Phosphatase Lactate Dehydrogenase Troponin T C-Reactive Protein Total Protein Albumin Prealbumin Triglycerides Cholesterol LDL Cholesterol Direct HDL Cholesterol Urine pH Urine WBC (Auto) Urine Creatinine Urine Total Protein Fluid Total Protein Vancomycin Trough Rheumatoid Factor Complement C4 Miscellaneous Test Crossmatch See Detail 12/17/16 12/17/16 12/17/16 00:14 04:00 05:00 WBC 20.0 H RBC 2.99 L Hgb 8.5 L Hct 25.7 L MCV MCH MCHC RDW 17.2 H Plt Count Lymph % (Auto) Coke % (Auto) Lymph # [place] # Baso # Seg Neutrophils % Seg Neuts % (Manual) Lymphocytes % (Manual) Monocytes % (Manual) Eosinophils % (Manual) Basophils % (Manual) Nucleated RBC % Seg Neutrophils # Seg Neutrophils # Man Lymphocytes # (Manual) Monocytes # (Manual) Eosinophils # (Manual) Basophils # (Manual) PT INR Fibrinogen dRVVT Confirm Interp Factor V Activity POC ABG pH POC ABG pCO2 POC ABG pO2 ABG pO2 ABG HCO3 ABG Base Excess ABG Hemoglobin Oxyhemoglobin Sodium Potassium Chloride 97.7 L Carbon Dioxide BUN 73 H Creatinine 1.7 H Glucose 136 H POC Glucose 148 H Lactic Acid Calcium Phosphorus 2.20 L Magnesium 2.70 H Direct Bilirubin AST ALT Alkaline Phosphatase Lactate Dehydrogenase Troponin T C-Reactive Protein Total Protein Albumin Prealbumin Triglycerides Cholesterol LDL Cholesterol Direct HDL Cholesterol Urine pH Urine WBC (Auto) Urine Creatinine Urine Total Protein Fluid Total Protein Vancomycin Trough Rheumatoid Factor Complement C4 Miscellaneous Test Crossmatch 12/17/16 12/17/16 12/17/16 05:39 12:50 16:32 WBC RBC Hgb Hct MCV MCH MCHC RDW Plt Count Lymph % (Auto) [place] % (Auto) Lymph # [place] # Baso # Seg Neutrophils % Seg Neuts % (Manual) Lymphocytes % (Manual) Monocytes % (Manual) Eosinophils % (Manual) Basophils % (Manual) Nucleated RBC % Seg Neutrophils # Seg Neutrophils # Man Lymphocytes # (Manual) Monocytes # (Manual) Eosinophils # (Manual) Basophils # (Manual) PT INR Fibrinogen dRVVT Confirm Interp Factor V Activity POC ABG pH POC ABG pCO2 POC ABG pO2 ABG pO2 ABG HCO3 ABG Base Excess ABG Hemoglobin Oxyhemoglobin Sodium Potassium Chloride Carbon Dioxide BUN Creatinine Glucose POC Glucose 162 H 146 H 169 H Lactic Acid Calcium Phosphorus Magnesium Direct Bilirubin AST ALT Alkaline Phosphatase Lactate Dehydrogenase Troponin T C-Reactive Protein Total Protein Albumin Prealbumin Triglycerides Cholesterol LDL Cholesterol Direct HDL Cholesterol Urine pH Urine WBC (Auto) Urine Creatinine Urine Total Protein Fluid Total Protein Vancomycin Trough Rheumatoid Factor Complement C4 Miscellaneous Test Crossmatch 12/17/16 12/18/16 12/18/16 23:57 05:00 05:32 WBC RBC Hgb Hct MCV MCH MCHC RDW Plt Count Lymph % (Auto) [place] % (Auto) Lymph # [place] # Baso # Seg Neutrophils % Seg Neuts % (Manual) Lymphocytes % (Manual) Monocytes % (Manual) Eosinophils % (Manual) Basophils % (Manual) Nucleated RBC % Seg Neutrophils # Seg Neutrophils # Man Lymphocytes # (Manual) Monocytes # (Manual) Eosinophils # (Manual) Basophils # (Manual) PT INR Fibrinogen dRVVT Confirm Interp Factor V Activity POC ABG pH POC ABG pCO2 POC ABG pO2 ABG pO2 ABG HCO3 ABG Base Excess ABG Hemoglobin Oxyhemoglobin Sodium Potassium Chloride 97.0 L Carbon Dioxide BUN 63 H Creatinine 1.4 H Glucose 174 H POC Glucose 145 H 201 H Lactic Acid Calcium Phosphorus 1.70 L D Magnesium Direct Bilirubin AST ALT Alkaline Phosphatase 257 H Lactate Dehydrogenase Troponin T C-Reactive Protein Total Protein 5.9 L Albumin 1.8 L Prealbumin Triglycerides Cholesterol LDL Cholesterol Direct HDL Cholesterol Urine pH Urine WBC (Auto) Urine Creatinine Urine Total Protein Fluid Total Protein Vancomycin Trough Rheumatoid Factor Complement C4 Miscellaneous Test Crossmatch 12/18/16 12/18/16 12/18/16 11:43 16:52 23:52 WBC RBC Hgb Hct MCV MCH MCHC RDW Plt Count Lymph % (Auto) [place] % (Auto) Lymph # [place] # Baso # Seg Neutrophils % Seg Neuts % (Manual) Lymphocytes % (Manual) Monocytes % (Manual) Eosinophils % (Manual) Basophils % (Manual) Nucleated RBC % Seg Neutrophils # Seg Neutrophils # Man Lymphocytes # (Manual) Monocytes # (Manual) Eosinophils # (Manual) Basophils # (Manual) PT INR Fibrinogen dRVVT Confirm Interp Factor V Activity POC ABG pH POC ABG pCO2 POC ABG pO2 ABG pO2 ABG HCO3 ABG Base Excess ABG Hemoglobin Oxyhemoglobin Sodium Potassium Chloride Carbon Dioxide BUN Creatinine Glucose POC Glucose 177 H 110 H 162 H Lactic Acid Calcium Phosphorus Magnesium Direct Bilirubin AST ALT Alkaline Phosphatase Lactate Dehydrogenase Troponin T C-Reactive Protein Total Protein Albumin Prealbumin Triglycerides Cholesterol LDL Cholesterol Direct HDL Cholesterol Urine pH Urine WBC (Auto) Urine Creatinine Urine Total Protein Fluid Total Protein Vancomycin Trough Rheumatoid Factor Complement C4 Miscellaneous Test Crossmatch 12/19/16 12/19/16 12/19/16 05:02 05:24 09:30 WBC 20.1 H RBC 2.73 L Hgb 7.6 L Hct 23.6 L MCV MCH MCHC RDW 17.6 H Plt Count Lymph % (Auto) [place]ke % (Auto) Lymph # [place] # Baso # Seg Neutrophils % Seg Neuts % (Manual) Lymphocytes % (Manual) 13.0 L Monocytes % (Manual) Eosinophils % (Manual) Basophils % (Manual) Nucleated RBC % 1.0 H Seg Neutrophils # Seg Neutrophils # Man 12.9 H Lymphocytes # (Manual) Monocytes # (Manual) 1.4 H Eosinophils # (Manual) Basophils # (Manual) 0.2 H PT INR Fibrinogen dRVVT Confirm Interp Factor V Activity POC ABG pH POC ABG pCO2 POC ABG pO2 ABG pO2 ABG HCO3 ABG Base Excess ABG Hemoglobin Oxyhemoglobin Sodium Potassium Chloride 97.8 L Carbon Dioxide BUN 84 H Creatinine 1.6 H Glucose 133 H POC Glucose 134 H Lactic Acid Calcium Phosphorus Magnesium Direct Bilirubin AST ALT Alkaline Phosphatase Lactate Dehydrogenase Troponin T C-Reactive Protein Total Protein Albumin Prealbumin Triglycerides Cholesterol LDL Cholesterol Direct HDL Cholesterol Urine pH Urine WBC (Auto) Urine Creatinine Urine Total Protein Fluid Total Protein Vancomycin Trough Rheumatoid Factor Complement C4 Miscellaneous Test Crossmatch 12/19/16 12/19/16 12/19/16 09:36 11:12 18:29 WBC RBC Hgb Hct MCV MCH MCHC RDW Plt Count Lymph % (Auto) [place]ke % (Auto) Lymph # [place] # Baso # Seg Neutrophils % Seg Neuts % (Manual) Lymphocytes % (Manual) Monocytes % (Manual) Eosinophils % (Manual) Basophils % (Manual) Nucleated RBC % Seg Neutrophils # Seg Neutrophils # Man Lymphocytes # (Manual) Monocytes # (Manual) Eosinophils # (Manual) Basophils # (Manual) PT INR Fibrinogen dRVVT Confirm Interp Factor V Activity POC ABG pH 7.503 H POC ABG pCO2 30.1 L POC ABG pO2 ABG pO2 ABG HCO3 ABG Base Excess ABG Hemoglobin Oxyhemoglobin Sodium Potassium Chloride Carbon Dioxide BUN Creatinine Glucose POC Glucose 138 H 156 H Lactic Acid Calcium Phosphorus Magnesium Direct Bilirubin AST ALT Alkaline Phosphatase Lactate Dehydrogenase Troponin T C-Reactive Protein Total Protein Albumin Prealbumin Triglycerides Cholesterol LDL Cholesterol Direct HDL Cholesterol Urine pH Urine WBC (Auto) Urine Creatinine Urine Total Protein Fluid Total Protein Vancomycin Trough Rheumatoid Factor Complement C4 Miscellaneous Test Crossmatch 12/20/16 12/20/16 12/20/16 00:03 06:17 07:07 WBC RBC Hgb Hct MCV MCH MCHC RDW Plt Count Lymph % (Auto) [place] % (Auto) Lymph # [place] # Baso # Seg Neutrophils % Seg Neuts % (Manual) Lymphocytes % (Manual) Monocytes % (Manual) Eosinophils % (Manual) Basophils % (Manual) Nucleated RBC % Seg Neutrophils # Seg Neutrophils # Man Lymphocytes # (Manual) Monocytes # (Manual) Eosinophils # (Manual) Basophils # (Manual) PT INR Fibrinogen dRVVT Confirm Interp Factor V Activity POC ABG pH POC ABG pCO2 POC ABG pO2 ABG pO2 ABG HCO3 ABG Base Excess ABG Hemoglobin Oxyhemoglobin Sodium Potassium Chloride 97.1 L Carbon Dioxide 20 L BUN 97 H Creatinine 1.8 H Glucose 153 H POC Glucose 152 H 175 H Lactic Acid Calcium Phosphorus Magnesium Direct Bilirubin AST ALT Alkaline Phosphatase Lactate Dehydrogenase Troponin T C-Reactive Protein Total Protein Albumin Prealbumin Triglycerides Cholesterol LDL Cholesterol Direct HDL Cholesterol Urine pH Urine WBC (Auto) Urine Creatinine Urine Total Protein Fluid Total Protein Vancomycin Trough Rheumatoid Factor Complement C4 Miscellaneous Test Crossmatch 12/20/16 12/20/16 12/20/16 12:00 17:42 23:53 WBC RBC Hgb Hct MCV MCH MCHC RDW Plt Count Lymph % (Auto) [place]ke % (Auto) Lymph # [place] # Baso # Seg Neutrophils % Seg Neuts % (Manual) Lymphocytes % (Manual) Monocytes % (Manual) Eosinophils % (Manual) Basophils % (Manual) Nucleated RBC % Seg Neutrophils # Seg Neutrophils # Man Lymphocytes # (Manual) Monocytes # (Manual) Eosinophils # (Manual) Basophils # (Manual) PT INR Fibrinogen dRVVT Confirm Interp Factor V Activity POC ABG pH POC ABG pCO2 POC ABG pO2 ABG pO2 ABG HCO3 ABG Base Excess ABG Hemoglobin Oxyhemoglobin Sodium Potassium Chloride Carbon Dioxide BUN Creatinine Glucose POC Glucose 141 H 156 H 132 H Lactic Acid Calcium Phosphorus Magnesium Direct Bilirubin AST ALT Alkaline Phosphatase Lactate Dehydrogenase Troponin T C-Reactive Protein Total Protein Albumin Prealbumin Triglycerides Cholesterol LDL Cholesterol Direct HDL Cholesterol Urine pH Urine WBC (Auto) Urine Creatinine Urine Total Protein Fluid Total Protein Vancomycin Trough Rheumatoid Factor Complement C4 Miscellaneous Test Crossmatch 12/21/16 05:49 WBC RBC Hgb Hct MCV MCH MCHC RDW Plt Count Lymph % (Auto) [place] % (Auto) Lymph # [place] # Baso # Seg Neutrophils % Seg Neuts % (Manual) Lymphocytes % (Manual) Monocytes % (Manual) Eosinophils % (Manual) Basophils % (Manual) Nucleated RBC % Seg Neutrophils # Seg Neutrophils # Man Lymphocytes # (Manual) Monocytes # (Manual) Eosinophils # (Manual) Basophils # (Manual) PT INR Fibrinogen dRVVT Confirm Interp Factor V Activity POC ABG pH POC ABG pCO2 POC ABG pO2 ABG pO2 ABG HCO3 ABG Base Excess ABG Hemoglobin Oxyhemoglobin Sodium Potassium Chloride Carbon Dioxide BUN Creatinine Glucose POC Glucose 132 H Lactic Acid Calcium Phosphorus Magnesium Direct Bilirubin AST ALT Alkaline Phosphatase Lactate Dehydrogenase Troponin T C-Reactive Protein Total Protein Albumin Prealbumin Triglycerides Cholesterol LDL Cholesterol Direct HDL Cholesterol Urine pH Urine WBC (Auto) Urine Creatinine Urine Total Protein Fluid Total Protein Vancomycin Trough Rheumatoid Factor Complement C4 Miscellaneous Test Crossmatch Chest x-ray: report reviewed Allied health notes reviewed: RT
--- NOTE | 2016-12-21 08:32 | Progress Note ---
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 No acute events overnight. Objective - Vital Signs Vital signs: Vital Signs - 12hr 12/20/16 12/20/16 12/20/16 20:45 21:00 21:15 Temperature Pulse Rate 98 H 101 H 99 H Pulse Rate [ Throughout] Respiratory 28 H 25 H 21 Rate Respiratory Rate [ Throughout] Blood Pressure 90/53 89/55 87/54 O2 Sat by Pulse 99 99 98 Oximetry O2 Sat by Pulse Oximetry [ Assessment] 12/20/16 12/20/16 12/20/16 21:30 21:45 22:00 Temperature Pulse Rate 103 H 106 H 108 H Pulse Rate [ Throughout] Respiratory 30 H 22 27 H Rate Respiratory Rate [ Throughout] Blood Pressure 105/62 117/70 110/60 O2 Sat by Pulse 92 99 88 Oximetry O2 Sat by Pulse Oximetry [ Assessment] 12/20/16 12/20/16 12/20/16 22:14 22:15 22:30 Temperature Pulse Rate 106 H 107 H 103 H Pulse Rate [ Throughout] Respiratory 26 H 24 Rate Respiratory Rate [ Throughout] Blood Pressure 110/60 107/66 110/70 O2 Sat by Pulse 92 98 Oximetry O2 Sat by Pulse Oximetry [ Assessment] 12/20/16 12/20/16 12/20/16 22:45 23:00 23:15 Temperature Pulse Rate 101 H 108 H 101 H Pulse Rate [ Throughout] Respiratory 24 27 H 23 Rate Respiratory Rate [ Throughout] Blood Pressure 107/63 121/78 94/58 O2 Sat by Pulse 97 93 97 Oximetry O2 Sat by Pulse Oximetry [ Assessment] 12/20/16 12/20/16 12/20/16 23:30 23:45 23:54 Temperature Pulse Rate 96 H 95 H 95 H Pulse Rate [ Throughout] Respiratory 28 H 17 Rate Respiratory Rate [ Throughout] Blood Pressure 88/44 92/55 92/55 O2 Sat by Pulse 96 98 98 Oximetry O2 Sat by Pulse Oximetry [ Assessment] 12/20/16 12/21/16 12/21/16 23:57 00:00 00:15 Temperature 98.2 F Pulse Rate 97 H 93 H Pulse Rate [ Throughout] Respiratory 18 22 Rate Respiratory Rate [ Throughout] Blood Pressure 83/49 85/48 O2 Sat by Pulse 98 95 Oximetry O2 Sat by Pulse 98 Oximetry [ Assessment] 12/21/16 12/21/16 12/21/16 00:30 00:45 01:00 Temperature Pulse Rate 94 H 97 H 100 H Pulse Rate [ Throughout] Respiratory 19 21 21 Rate Respiratory Rate [ Throughout] Blood Pressure 91/57 104/70 101/66 O2 Sat by Pulse 99 98 98 Oximetry O2 Sat by Pulse Oximetry [ Assessment] 12/21/16 12/21/16 12/21/16 01:15 01:30 01:45 Temperature Pulse Rate 100 H 96 H 98 H Pulse Rate [ Throughout] Respiratory 20 20 23 Rate Respiratory Rate [ Throughout] Blood Pressure 100/67 98/60 95/65 O2 Sat by Pulse 98 98 98 Oximetry O2 Sat by Pulse Oximetry [ Assessment] 12/21/16 12/21/16 12/21/16 02:00 02:15 02:30 Temperature Pulse Rate 96 H 107 H 107 H Pulse Rate [ 105 H Throughout] Respiratory 16 25 H 27 H Rate Respiratory 22 Rate [ Throughout] Blood Pressure 90/55 105/69 112/71 O2 Sat by Pulse 98 99 97 Oximetry O2 Sat by Pulse Oximetry [ Assessment] 12/21/16 12/21/16 12/21/16 02:45 03:00 03:15 Temperature Pulse Rate 105 H 105 H 102 H Pulse Rate [ Throughout] Respiratory 24 24 26 H Rate Respiratory Rate [ Throughout] Blood Pressure 106/66 115/70 108/68 O2 Sat by Pulse 97 97 97 Oximetry O2 Sat by Pulse Oximetry [ Assessment] 12/21/16 12/21/16 12/21/16 03:30 03:45 04:00 Temperature 98.0 F Pulse Rate 107 H 107 H 98 H Pulse Rate [ Throughout] Respiratory 24 22 17 Rate Respiratory Rate [ Throughout] Blood Pressure 114/75 115/78 94/61 O2 Sat by Pulse 99 98 97 Oximetry O2 Sat by Pulse Oximetry [ Assessment] 12/21/16 12/21/16 12/21/16 04:15 04:31 04:45 Temperature Pulse Rate 111 H 111 H Pulse Rate [ Throughout] Respiratory 18 26 H Rate Respiratory Rate [ Throughout] Blood Pressure 94/61 94/61 94/61 O2 Sat by Pulse 97 94 97 Oximetry O2 Sat by Pulse Oximetry [ Assessment] 12/21/16 12/21/16 12/21/16 05:01 05:15 05:31 Temperature Pulse Rate 102 H 101 H 102 H Pulse Rate [ Throughout] Respiratory 22 21 19 Rate Respiratory Rate [ Throughout] Blood Pressure 94/61 94/61 94/61 O2 Sat by Pulse 97 98 98 Oximetry O2 Sat by Pulse Oximetry [ Assessment] 12/21/16 12/21/16 12/21/16 05:45 05:49 06:00 Temperature Pulse Rate 102 H 100 H 100 H Pulse Rate [ Throughout] Respiratory 21 20 Rate Respiratory Rate [ Throughout] Blood Pressure 94/61 105/69 132/78 O2 Sat by Pulse 99 99 99 Oximetry O2 Sat by Pulse Oximetry [ Assessment] 12/21/16 12/21/16 12/21/16 06:02 06:15 06:30 Temperature Pulse Rate 105 H 101 H 100 H Pulse Rate [ Throughout] Respiratory 21 20 Rate Respiratory Rate [ Throughout] Blood Pressure 104/58 126/80 138/85 O2 Sat by Pulse 98 100 Oximetry O2 Sat by Pulse Oximetry [ Assessment] 12/21/16 12/21/16 12/21/16 06:45 07:00 07:15 Temperature Pulse Rate 92 H 96 H 92 H Pulse Rate [ Throughout] Respiratory 20 20 23 Rate Respiratory Rate [ Throughout] Blood Pressure 138/85 143/89 130/77 O2 Sat by Pulse 100 100 100 Oximetry O2 Sat by Pulse Oximetry [ Assessment] 12/21/16 12/21/16 12/21/16 07:30 07:45 08:00 Temperature 98.6 F Pulse Rate 92 H 89 Pulse Rate [ Throughout] Respiratory 25 H 22 Rate Respiratory Rate [ Throughout] Blood Pressure 120/71 102/62 O2 Sat by Pulse 100 96 Oximetry O2 Sat by Pulse Oximetry [ Assessment] - General Appearance General appearance: well-developed, intubated (via trach) EENT: ATNC Neck: other (trach collar) Respiratory: Present: Decreased Breath Sounds Cardiology: regular, S1S2 Gastrointestinal: hypoactive bowel sounds, no tenderness, no distended Musculoskeletal: other (trace edema) - Lab 12/19/16 05:02 12/21/16 08:50 Most recent lab results ABG pH 7.450 pH Units (7.350-7.450) 12/05/16 Unknown ABG pCO2 29.6 mm Hg 12/05/16 Unknown ABG pO2 75.2 mm Hg (80.0-90.0) L 12/05/16 Unknown ABG HCO3 20.1 mmol/L (20.0-26.0) 12/05/16 Unknown ABG O2 Saturation 96.8 % (95.0-99.0) 12/05/16 Unknown Calcium TNR 12/21/16 05:00 Phosphorus TNR 12/21/16 05:00 Magnesium TNR 12/21/16 05:00 Urine Creatinine 19.7 mg/dL (0.1-20.0) 11/12/16 10:18 Urine Sodium 36 mEq/L 09/16/16 19:19 Urine Total Protein 16 mg/dL (5-11.8) H 09/16/16 19:19
[2016-12-21 09:08] LABS: Calcium 8.3 mg/dL (8.4-10.2)
[2016-12-21] MEDS: NORVASC PO SCH (10:00)
[2016-12-21] MEDS: ROBINUL PO SCH ×2 (10:46→21:30)
[2016-12-21] MEDS: HEPARIN SUB-Q SCH ×2 (10:46→21:29)
[2016-12-21] MEDS: PROTONIX FEEDTUBE SCH (10:46)
--- NOTE | 2016-12-21 11:08 | Progress Note ---
Assessment and Plan Acute hypoxic respiratory failure on mechanical ventilation s/p trach and PEG Acute left MCA CVA echocardiogram demonstrates at least moderate LVH but a normal LV systolic function, EF 50-55%. no thrombus visualized on transthoracic echocardiogram. Dislodged PEG tube s/p repair of gastric perforation with wedge gastrectomy Hypotensive now off pressors Acute on chronic renal failure requiring dialysis Fungemia Diabetes mellitus Anemia requiring transfusion of PRBCs Leukocytosis Paroxysmal Afib s/p failed cardioversion on 09/25 on lopressor for suppression considered not a candidate for anticoagulation due to severe anemia and thrombocytopenia. Conservative cardiac management. Subjective Date of service: 12/21/16 Principal diagnosis: Acute resp failure on MVS; S/P Acute CVA; Acute Encephalopathy; JUANITA Interval history: Now off pressors. Sinus tachcardia on telemetry. Objective Vital Signs Temp Pulse Pulse Pulse Resp Resp Resp 12/21/16 10:19 40 H 12/21/16 10:15 108 H 34 H 12/21/16 10:00 113 H 43 H 12/21/16 09:45 108 H 42 H 12/21/16 09:30 91 H 92 H 12 28 H 12/21/16 09:21 89 21 12/21/16 09:20 12/21/16 09:15 93 H 25 H 12/21/16 09:00 86 21 12/21/16 08:45 93 H 21 12/21/16 08:30 96 H 21 12/21/16 08:15 88 20 12/21/16 08:00 98.6 F 97 H 27 H 12/21/16 07:45 89 22 12/21/16 07:30 92 H 25 H 12/21/16 07:15 92 H 23 12/21/16 07:00 96 H 20 12/21/16 06:45 92 H 20 12/21/16 06:30 100 H 20 12/21/16 06:15 101 H 21 12/21/16 06:02 105 H 12/21/16 06:00 100 H 20 12/21/16 05:49 100 H 12/21/16 05:45 102 H 21 12/21/16 05:31 102 H 19 12/21/16 05:15 101 H 21 12/21/16 05:01 102 H 22 12/21/16 04:45 111 H 26 H 12/21/16 04:31 111 H 18 12/21/16 04:15 12/21/16 04:00 98.0 F 98 H 17 12/21/16 03:45 107 H 22 12/21/16 03:30 107 H 24 12/21/16 03:15 102 H 26 H 12/21/16 03:00 105 H 24 12/21/16 02:45 105 H 24 12/21/16 02:30 107 H 27 H 12/21/16 02:15 107 H 25 H 12/21/16 02:00 96 H 105 H 16 22 12/21/16 01:45 98 H 23 12/21/16 01:30 96 H 20 12/21/16 01:15 100 H 20 12/21/16 01:00 100 H 21 12/21/16 00:45 97 H 21 12/21/16 00:30 94 H 19 12/21/16 00:15 93 H 22 12/21/16 00:00 98.2 F 97 H 18 12/20/16 23:57 12/20/16 23:54 95 H 12/20/16 23:45 95 H 17 12/20/16 23:30 96 H 28 H 12/20/16 23:15 101 H 23 12/20/16 23:00 108 H 27 H 12/20/16 22:45 101 H 24 12/20/16 22:30 103 H 24 12/20/16 22:15 107 H 26 H 12/20/16 22:14 106 H 12/20/16 22:00 108 H 27 H 12/20/16 21:45 106 H 22 12/20/16 21:30 103 H 30 H 12/20/16 21:15 99 H 21 12/20/16 21:00 101 H 25 H 12/20/16 20:45 98 H 28 H 12/20/16 20:30 101 H 28 H 12/20/16 20:15 103 H 24 12/20/16 20:00 97.9 F 105 H 27 H 12/20/16 19:56 26 H 12/20/16 19:55 107 H 25 H 12/20/16 19:45 114 H 17 12/20/16 19:39 110 H 25 H 12/20/16 19:30 113 H 28 H 12/20/16 19:28 111 H 29 H 12/20/16 19:21 109 H 10/31/17 19:15 110 H 20 12/20/16 19:00 113 H 28 H 12/20/16 18:45 114 H 23 12/20/16 18:30 111 H 26 H 12/20/16 18:28 12/20/16 18:15 108 H 27 H 12/20/16 18:00 105 H 28 H 12/20/16 17:45 102 H 30 H 12/20/16 17:30 102 H 25 H 12/20/16 17:15 102 H 28 H 12/20/16 17:01 114 H 39 H 12/20/16 16:54 109 H 12/20/16 16:45 102 H 27 H 12/20/16 16:30 108 H 26 H 12/20/16 16:27 97.3 F L 109 H 26 H 12/20/16 16:15 109 H 27 H 12/20/16 16:00 97.6 F 110 H 25 H 12/20/16 15:45 117 H 30 H 12/20/16 15:39 116 H 12/20/16 15:30 117 H 28 H 12/20/16 15:15 116 H 31 H 12/20/16 15:01 115 H 12/20/16 15:00 115 H 35 H 12/20/16 14:45 117 H 31 H 12/20/16 14:32 115 H 12/20/16 14:30 117 H 28 H 12/20/16 14:15 116 H 30 H 12/20/16 14:00 115 H 30 H 12/20/16 13:45 114 H 31 H 12/20/16 13:32 114 H 12/20/16 13:31 113 H 112 H 35 H 33 H 12/20/16 13:30 113 H 34 H 12/20/16 13:15 110 H 28 H 12/20/16 13:03 111 H 12/20/16 13:00 111 H 31 H 12/20/16 12:45 111 H 31 H 12/20/16 12:30 109 H 33 H 12/20/16 12:15 109 H 30 H 12/20/16 12:11 12/20/16 12:05 107 H 12/20/16 12:01 116 H 32 H 12/20/16 12:00 97.3 F L 111 H 26 H 12/20/16 11:45 105 H 22 12/20/16 11:30 103 H 24 12/20/16 11:15 104 H 25 H BP Pulse Ox Pulse Ox Pulse Ox Pulse Ox 12/21/16 10:19 91 12/21/16 10:15 145/82 97 12/21/16 10:00 132/67 91 12/21/16 09:45 132/78 98 12/21/16 09:30 120/72 98 12/21/16 09:21 12/21/16 09:20 199 H 12/21/16 09:15 117/76 100 12/21/16 09:00 117/67 100 12/21/16 08:45 126/83 99 12/21/16 08:30 141/94 100 12/21/16 08:15 125/78 100 12/21/16 08:00 138/90 100 12/21/16 07:45 102/62 96 12/21/16 07:30 120/71 100 12/21/16 07:15 130/77 100 12/21/16 07:00 143/89 100 12/21/16 06:45 138/85 100 12/21/16 06:30 138/85 100 12/21/16 06:15 126/80 98 12/21/16 06:02 104/58 12/21/16 06:00 132/78 99 12/21/16 05:49 105/69 99 12/21/16 05:45 94/61 99 12/21/16 05:31 94/61 98 12/21/16 05:15 94/61 98 12/21/16 05:01 94/61 97 12/21/16 04:45 94/61 97 12/21/16 04:31 94/61 94 12/21/16 04:15 94/61 97 12/21/16 04:00 94/61 97 12/21/16 03:45 115/78 98 12/21/16 03:30 114/75 99 12/21/16 03:15 108/68 97 12/21/16 03:00 115/70 97 12/21/16 02:45 106/66 97 12/21/16 02:30 112/71 97 12/21/16 02:15 105/69 99 12/21/16 02:00 90/55 98 12/21/16 01:45 95/65 98 12/21/16 01:30 98/60 98 12/21/16 01:15 100/67 98 12/21/16 01:00 101/66 98 12/21/16 00:45 104/70 98 12/21/16 00:30 91/57 99 12/21/16 00:15 85/48 95 12/21/16 00:00 83/49 98 12/20/16 23:57 98 12/20/16 23:54 92/55 98 12/20/16 23:45 92/55 98 12/20/16 23:30 88/44 96 12/20/16 23:15 94/58 97 12/20/16 23:00 121/78 93 12/20/16 22:45 107/63 97 12/20/16 22:30 110/70 98 12/20/16 22:15 107/66 92 12/20/16 22:14 110/60 12/20/16 22:00 110/60 88 12/20/16 21:45 117/70 99 12/20/16 21:30 105/62 92 12/20/16 21:15 87/54 98 12/20/16 21:00 89/55 99 12/20/16 20:45 90/53 99 12/20/16 20:30 90/53 99 12/20/16 20:15 98/48 98 12/20/16 20:00 97/54 96 12/20/16 19:56 98 12/20/16 19:55 121/74 98 12/20/16 19:45 121/74 100 12/20/16 19:39 102/61 92 12/20/16 19:30 102/61 90 12/20/16 19:28 12/20/16 19:21 108/66 96 12/20/16 19:15 108/66 97 12/20/16 19:00 117/66 95 12/20/16 18:45 123/77 97 12/20/16 18:30 132/89 97 12/20/16 18:28 95/52 12/20/16 18:15 127/90 98 12/20/16 18:00 126/89 98 12/20/16 17:45 125/81 95 12/20/16 17:30 122/81 98 12/20/16 17:15 102/62 89 12/20/16 17:01 137/99 97 12/20/16 16:54 97 12/20/16 16:45 84/48 95 12/20/16 16:30 89/56 97 12/20/16 16:27 86/59 98 12/20/16 16:15 80/49 96 12/20/16 16:00 81/45 97 97 12/20/16 15:45 92/59 97 12/20/16 15:39 84/53 12/20/16 15:30 84/53 97 12/20/16 15:15 97/54 97 12/20/16 15:01 87/53 12/20/16 15:00 87/53 98 12/20/16 14:45 84/57 97 12/20/16 14:32 92/54 12/20/16 14:30 92/54 97 12/20/16 14:15 88/55 97 12/20/16 14:00 99/57 96 12/20/16 13:45 92/54 96 12/20/16 13:32 88/47 12/20/16 13:31 12/20/16 13:30 88/47 96 12/20/16 13:15 86/51 96 12/20/16 13:03 103/58 12/20/16 13:00 103/58 96 12/20/16 12:45 95/52 95 12/20/16 12:30 105/57 97 12/20/16 12:15 103/62 97 12/20/16 12:11 105/63 12/20/16 12:05 107/64 12/20/16 12:01 91/67 96 12/20/16 12:00 86/51 96 12/20/16 11:45 105/60 97 12/20/16 11:30 111/66 97 12/20/16 11:15 106/61 97 - Physical Examination General: Other (ventilated via trach) Cardiac: Positive: Tachycardia Neuro: Positive: Weakness Abdomen: Positive: Soft, Active Bowel Sounds Skin: Positive: Clear Extremities: Absent: edema - Labs and Meds Comprehensive Metabolic Panel 12/21/16 12/21/16 Range/Units 05:00 08:50 Sodium TNR 138 Potassium TNR 5.2 H D Chloride TNR 98.3 Carbon Dioxide TNR 27 D BUN TNR 63 H Creatinine TNR 1.2 Glucose TNR 122 H Calcium TNR 8.3 L - Imaging and Cardiology EKG: image reviewed - Allied health notes Allied health notes reviewed: RT
[2016-12-21] MEDS: APRESOLINE PO SCH ×5 (14:00→21:30)
--- NOTE | 2016-12-21 15:46 | Progress Note ---
Assessment and Plan Assessment and plan: Patient is 46-year-old woman with a history of hypertension, diabetes mellitus, asthma, hyperlipidemia, chronic kidney disease and anxiety, who was brought in by family because she couldn't get her words out, her face was also twisted, she was admitted for acute CVA and accelerated hypertension, she had a hx of poor adherence with her medications, and uncontrolled htn. Patient's SBP on admission was noted be greater than 260. TPA was started but this it was discontinued after 5 minutes because her blood pressure became uncontrolled. The TPA was not initiated again because the patient was outside the TPA window. Patient has had a prolonged hospital stay complicated with recurrent severe sepsis. Patient with most recent event also status post cardiac arrest on and received CPR. -Severe Sepsis with septic shock, recurrent. * Patient with multiple episodes of sepsis. Initial episode due to presumed aspiration pneumonia and septic episode on 09/23 from candidemia then a third episode from peritonitis from gastric perforation from dislodged PEG +/-UTI. Patient was also noted to have had Candidemia with Blood cultures positive for Silvia albicans 09/23, 09/25 but negative on 09/30. Antibiotic discontinued on per ID. patient is s/p R thoracentesis on 11/14, 240cc of serous fluid removed , cx of fluid was negative. Also, Stool negative for C. difficile * Remains afebrile. -Surgical wound infection/gram-negative sepsis/candidemia/peritonitis/fungemia. * Continue wound care to ostomy sites. * Surgery signed off citing "The pt is in a persistent vegatative state and overall prognosis is poor. The drainage does not appear to be enteric in nature and is likely related to prolonged spillage of gastric content prior to repair. No plan for any further surgical tx at this time. Continue supportive care. Will sign off. Would not recommend replacment of G tube given drainage. Continue TPN." * Drainage continues to present over the two stoma bags. -Acute hypoxic respiratory failure, status post tracheostomy on ventilator >96 hrs * Patient Remains on mechanical ventilator. Patient failed T-piece trials. Tracheostomy tube leak. Pulmonary following -Acute massive CVA with mass effect; continue antiplatelets and statins * CT showed continued evolution of left MCA infarct with slight mass effect and edema, and there is no hemorrhage -PRINCE showed hyperdynamic ventricle with ef of 75%, neither clot nor septal defect seen -MRA Brain shows near complete occlusion of M2 and M3 of the left MCA * carotid doppler negative -Echo shows preserved systolic function but does show some left ventricular diastolic dysfunction * continue asa and statin Oliguric acute kidney injury secondary to ATN on CKD - baseline SCr 1.7mg/dL * Continue HD, Nephrology following -Dislodged PEG tube: Status post repair of gastric perforation which wedge gastrectomy -Paroxysmal atrial fibrillation with rapid ventricular rate, failed cardioversion * Continue current medications, Not a candidate for anticoagulation secondary to anemia, thrombocytopenia and massive CVA -Anemia; probably secondary to GI bleeding * Patient received multiple units of PRBC in the past, hemoglobin currently stable -Toxic metabolic encephalopathy With possible persistent vegetative state; supportive care * Family aware, but the state they are still hopeful for meaningful recovery -Diabetes mellitus type 2, Insulin/SSI -Severe protein caloric malnutrition, cont TPN -s/p Thrombocytopenia. Now resolved -DVT prophylaxis, SCDs, no pharmacological agent given anemia , thrombocytopenia , massive stroke -Full code status, very poor prognosis now on TPN 12/18/16: yesterday pt became hypotensive after dialysis and Vasopressin was started by Dr. Lara. She was given iv hydralazine overnight. She is still on Vasopressin, now back in AFib/aflutter with RVR. i d/w Dr. Rollins who recommends iv amiodarone drip without bolus. I also spoke with [facility], Dr. De Leon. per Dr. Rollins: Paroxysmal Afib s/p failed cardioversion on 09/25 on IV lopressor for suppression considered not a candidate for anticoagulation due to severe anemia requiring blood transfusion 12/19/16: still on vasopressin, convert back to sinus, not on Amiodarone. Still on TPN, reorder restraints 12/20/16. * No meaningfull change in mental status. No family at bedside, will review all data, considering my first time returning after a few days. Patient remains on mechanical ventilatory support and daily SBTs as tolerated. weaned off Pressors. Discussed with nursing at bedside. Restraints remain in place for safety. 12/21/16 * Still unresponsive and still with lots of drainage. OLiguric, may need repeat imaging. will need to reconsult surgery for expectation and family re-dicussion in this patient. Scaral Pressure ulcer * Will re-insert gutierrez as urine although very small is indurating the wound * Wound care consult. Patient may need debridement. The high probability of a clinically significant, sudden or life threatening deterioration of the [pulmonary, neurology, cardiac, hematolgy, nephrology] system(s) required my full and direct attention, intervention and personal management. The aggregate critical care time was [35] minutes. This time is in addition to time spent performing reported procedures but includes the following : [x] Data Review and interpretation [x] Patient assessment and monitoring of vital signs [x] Documentation [x] Medication orders and management History Interval history: patient seen and examined, remains unresponsive on the ventilator. No new event Hospitalist Physical - Physical exam Narrative exam: GEN: Ill appearing, trach, staring into space, not tracking either NECK: SUPPLE, trach in place, ngt in place CVS: regular currently NORMAL S1S2 LUNGS/CHEST: NORMAL CHEST EXPANSION B, GOOD AIR ENTRY B ABD: SOFT, NTND, 3 ostomy bags in 3 different locations, GBS, NO REBOUND OR GUARDING EXT/SKIN: NO SIGNIFICANT EDEMA BUT WITH UNSTAGEABLE SACRAL DECUB MSK: +spontaneous non purposeful movement NEURO: on a ventilator and unresponsive despite being off sedation PSY: Comatose, - Constitutional Vitals: Temp Pulse Resp BP Pulse Ox 98.7 F 109 H 20 131/84 94 12/21/16 12:00 12/21/16 15:30 12/21/16 15:30 12/21/16 15:30 12/21/16 15:30 General appearance: Present: no acute distress, well-nourished, obese Results - Labs CBC & Chem 7: 12/19/16 05:02 12/21/16 08:50 Labs: Laboratory Last Values WBC 20.1 K/mm3 (4.5-11.0) H 12/19/16 05:02 RBC 2.73 M/mm3 (3.65-5.03) L 12/19/16 05:02 Hgb 7.6 gm/dl (10.1-14.3) L 12/19/16 05:02 Hct 23.6 % (30.3-42.9) L 12/19/16 05:02 MCV 86 fl (79-97) 12/19/16 05:02 MCH 28 pg (28-32) 12/19/16 05:02 MCHC 32 % (30-34) 12/19/16 05:02 RDW 17.6 % (13.2-15.2) H 12/19/16 05:02 Plt Count 354 K/mm3 (140-440) 12/19/16 05:02 Lymph % (Auto) [employer] 12/19/16 05:02 [place] % (Auto) [employer] 12/19/16 05:02 Eos % (Auto) [employer] 12/19/16 05:02 Baso % (Auto) [employer] 12/19/16 05:02 Lymph # [employer] 12/19/16 05:02 [place] # [employer] 12/19/16 05:02 Eos # [employer] 12/19/16 05:02 Baso # [employer] 12/19/16 05:02 Add Manual Diff Complete 12/19/16 05:02 Total Counted 100 12/19/16 05:02 Seg Neutrophils % [employer] 12/19/16 05:02 Seg Neuts % (Manual) 64.0 % (40.0-70.0) 12/19/16 05:02 Band Neutrophils % 15.0 % 12/19/16 05:02 Lymphocytes % (Manual) 13.0 % (13.4-35.0) L 12/19/16 05:02 Reactive Lymphs % (Man) 0 % 12/19/16 05:02 Monocytes % (Manual) 7.0 % (0.0-7.3) 12/19/16 05:02 Eosinophils % (Manual) 0 % (0.0-4.3) 12/19/16 05:02 Basophils % (Manual) 1.0 % (0.0-1.8) 12/19/16 05:02 Metamyelocytes % 0 % 12/19/16 05:02 Myelocytes % 0 % 12/19/16 05:02 Promyelocytes % 0 % 12/19/16 05:02 Blast Cells % 0 % 12/19/16 05:02 Nucleated RBC % 1.0 % (0.0-0.9) H 12/19/16 05:02 Seg Neutrophils # [employer] 12/19/16 05:02 Seg Neutrophils # Man 12.9 K/mm3 (1.8-7.7) H 12/19/16 05:02 Band Neutrophils # 3.0 K/mm3 12/19/16 05:02 Lymphocytes # (Manual) 2.6 K/mm3 (1.2-5.4) 12/19/16 05:02 Abs React Lymphs (Man) 0.0 K/mm3 12/19/16 05:02 Monocytes # (Manual) 1.4 K/mm3 (0.0-0.8) H 12/19/16 05:02 Eosinophils # (Manual) 0.0 K/mm3 (0.0-0.4) 12/19/16 05:02 Basophils # (Manual) 0.2 K/mm3 (0.0-0.1) H 12/19/16 05:02 Metamyelocytes # 0.0 K/mm3 12/19/16 05:02 Myelocytes # 0.0 K/mm3 12/19/16 05:02 Promyelocytes # 0.0 K/mm3 12/19/16 05:02 Blast Cells # 0.0 K/mm3 12/19/16 05:02 Pathologist Review 09/13/16 04:00 WBC Morphology Not Reportable 12/19/16 05:02 Hypersegmented Neuts Not Reportable 12/19/16 05:02 Hyposegmented Neuts Not Reportable 12/19/16 05:02 Hypogranular Neuts Not Reportable 12/19/16 05:02 Smudge Cells Not Reportable 12/19/16 05:02 Toxic Granulation Not Reportable 12/19/16 05:02 Toxic Vacuolation Not Reportable 12/19/16 05:02 Dohle Bodies Not Reportable 12/19/16 05:02 Pelger-Huet Anomaly Not Reportable 12/19/16 05:02 Jasmina Rods Not Reportable 12/19/16 05:02 Platelet Estimate Consistent w auto 12/19/16 05:02 Clumped Platelets Not Reportable 12/19/16 05:02 Plt Clumps, EDTA Not Reportable 12/19/16 05:02 Large Platelets Not Reportable 12/19/16 05:02 Giant Platelets Not Reportable 12/19/16 05:02 Platelet Satelliting Not Reportable 12/19/16 05:02 Plt Morphology Comment Not Reportable 12/19/16 05:02 RBC Morphology Not Reportable 12/19/16 05:02 Dimorphic RBCs Not Reportable 12/19/16 05:02 Polychromasia Not Reportable 12/19/16 05:02 Hypochromasia Not Reportable 12/19/16 05:02 Poikilocytosis Not Reportable 12/19/16 05:02 Anisocytosis Not Reportable 12/19/16 05:02 Microcytosis Not Reportable 12/19/16 05:02 Macrocytosis Not Reportable 12/19/16 05:02 Spherocytes Not Reportable 12/19/16 05:02 Pappenheimer Bodies Not Reportable 12/19/16 05:02 Sickle Cells Not Reportable 12/19/16 05:02 Target Cells Few 12/19/16 05:02 Tear Drop Cells Not Reportable 12/19/16 05:02 Ovalocytes Not Reportable 12/19/16 05:02 Stomatocytes Rare 12/03/16 04:00 Helmet Cells Not Reportable 12/19/16 05:02 [place] Bodies Not Reportable 12/19/16 05:02 [place] Rings Not Reportable 12/19/16 05:02 Bath Cells Not Reportable 12/19/16 05:02 Bite Cells Not Reportable 12/19/16 05:02 Crenated Cell Not Reportable 12/19/16 05:02 Elliptocytes Not Reportable 12/19/16 05:02 Acanthocytes (Spur) Not Reportable 12/19/16 05:02 Rouleaux Not Reportable 12/19/16 05:02 Hemoglobin C Crystals Not Reportable 12/19/16 05:02 Schistocytes Not Reportable 12/19/16 05:02 Malaria parasites Not Reportable 12/19/16 05:02 ESR > 140.0 mm/Hr (0-20) 09/08/16 11:48 Jun Bodies Not Reportable 12/19/16 05:02 Hem Pathologist Commnt No 12/19/16 05:02 PT 16.8 Sec. (12.2-14.9) H 11/17/16 03:20 INR 1.37 (0.87-1.13) H 11/17/16 03:20 APTT 33.0 Sec. (24.2-36.6) 10/09/16 03:45 Thrombin Time 16.8 Sec. (15.1-19.6) 09/03/16 00:10 Fibrinogen 750 mg/dl (211-480) H 09/08/16 11:48 Lupus Anticoagulant see below 09/12/16 09:59 LA PTT Baseline See scanned report 09/12/16 09:59 dRVVT Confirm Interp Positive (Negative) H 09/12/16 09:59 dRVVT Screen 50:50 See scanned report 09/12/16 09:59 dRVVT Mix Interpret See scanned report 09/12/16 09:59 Protein C Antigen 122 % (70-140) 09/08/16 15:35 Free Protein S 97 % normal (50-147) 09/08/16 15:35 Total Protein S 109 % (70-140) 09/08/16 15:35 Antithrombin III Ag 100 % (80-120) 09/08/16 15:35 Heparin Anti-Xa, Unfract Negative (Negative) 09/29/16 13:35 Factor V Activity 182 % (65-150) H 09/08/16 15:35 POC ABG pH 7.503 (7.35-7.45) H 12/19/16 09:36 ABG pH 7.450 pH Units (7.350-7.450) 12/05/16 Unknown POC ABG pCO2 30.1 (35-45) L 12/19/16 09:36 ABG pCO2 29.6 mm Hg 12/05/16 Unknown POC ABG pO2 85 (80-105) 12/19/16 09:36 ABG pO2 75.2 mm Hg (80.0-90.0) L 12/05/16 Unknown POC ABG HCO3 23.6 12/19/16 09:36 ABG HCO3 20.1 mmol/L (20.0-26.0) 12/05/16 Unknown POC ABG Total CO2 25 12/19/16 09:36 POC ABG O2 Sat 97 12/19/16 09:36 ABG O2 Saturation 96.8 % (95.0-99.0) 12/05/16 Unknown ABG O2 Content 9.9 (0.0-44) 12/05/16 Unknown POC ABG Base Excess 1 12/19/16 09:36 ABG Base Excess -3.4 mmol/L (-2.0-3.0) L 12/05/16 Unknown ABG Hemoglobin 7.4 gm/dl (12.0-16.0) L 12/05/16 Unknown ABG Carboxyhemoglobin 1.8 % (0.0-5.0) 12/05/16 Unknown ABG Methemoglobin 0.6 % (0.0-1.5) 12/05/16 Unknown Oxyhemoglobin 94.5 % (95.0-99.0) L 12/05/16 Unknown FiO2 28 % 12/19/16 09:36 Sodium 138 mmol/L (137-145) 12/21/16 08:50 Potassium 5.2 mmol/L (3.6-5.0) H D 12/21/16 08:50 Chloride 98.3 mmol/L (98-107) 12/21/16 08:50 Carbon Dioxide 27 mmol/L (22-30) D 12/21/16 08:50 Anion Gap 18 mmol/L 12/21/16 08:50 BUN 63 mg/dL (7-17) H 12/21/16 08:50 Creatinine 1.2 mg/dL (0.7-1.2) 12/21/16 08:50 Estimated GFR 59 ml/min 12/21/16 08:50 BUN/Creatinine Ratio 53 % 12/21/16 08:50 Glucose 122 mg/dL (65-100) H 12/21/16 08:50 POC Glucose 132 (70-105) H 12/21/16 05:49 Osmolality 351 Mosm/kg 09/16/16 11:47 Lactic Acid 4.50 mmol/L (0.7-2.0) H* 09/28/16 07:25 Calcium 8.3 mg/dL (8.4-10.2) L 12/21/16 08:50 Phosphorus 3.60 mg/dL (2.5-4.5) 12/21/16 08:50 Magnesium 1.90 mg/dL (1.7-2.3) 12/21/16 08:50 Total Bilirubin 0.90 mg/dL (0.1-1.2) 12/18/16 05:00 Direct Bilirubin 0.3 mg/dL (0-0.2) H 10/10/16 05:00 Indirect Bilirubin 0.1 mg/dL 10/10/16 05:00 AST 34 units/L (5-40) 12/18/16 05:00 ALT 42 units/L (7-56) 12/18/16 05:00 Alkaline Phosphatase 257 units/L (35-129) H 12/18/16 05:00 Ammonia 27.0 umol/L (25-60) 09/07/16 08:37 Lactate Dehydrogenase 196 units/L (91-180) H 11/11/16 06:59 Total Creatine Kinase 121 units/L (30-135) 09/29/16 20:12 CK-MB (CK-2) < 1.0 ng/mL (0.0-4.0) 09/29/16 20:12 CK-MB (CK-2) Rel Index 0.8 (0-4) 09/29/16 20:12 Troponin T 0.204 ng/mL (0.00-0.029) H* 09/29/16 20:12 C-Reactive Protein 19.30 mg/dL (0.00-1.30) H 12/05/16 05:00 Total Protein 5.9 g/dL (6.3-8.2) L 12/18/16 05:00 Albumin 1.8 g/dL (3.9-5) L 12/18/16 05:00 Albumin/Globulin Ratio 0.4 % 12/18/16 05:00 Prealbumin 0.180 g/L (0.200-0.400) L 11/06/16 06:25 Triglycerides 137 mg/dL (2-149) 09/29/16 20:12 Cholesterol 31 mg/dL (50-199) L 09/29/16 20:12 LDL Cholesterol Direct 4 mg/dL (50-130) L 09/29/16 20:12 HDL Cholesterol 3 mg/dL (40-59) L 09/29/16 20:12 Cholesterol/HDL Ratio 10.33 % 09/29/16 20:12 Angiotensin Convert Enz See scanned report 09/08/16 11:48 Renin 0.99 ng/mL/h (0.25-5.82) 10/07/16 10:56 Aldosterone <1 ng/dL () 10/07/16 10:56 Aldosterone/Renin Dir see below 10/07/16 10:56 Serotonin Release Assay See scanned report 09/29/16 13:35 TSH 1.010 mlU/mL (0.270-4.200) 09/07/16 08:37 HCG, Qual Negative (Negative) 09/03/16 00:10 Urine Color Yellow (Yellow) 11/05/16 13:09 Urine Turbidity Clear (Clear) 11/05/16 13:09 Urine pH 9.0 (5.0-7.0) H 11/05/16 13:09 Ur Specific Shelley 1.011 (1.003-1.030) 11/05/16 13:09 Urine Protein 100 mg/dl mg/dL (Negative) 11/05/16 13:09 Urine Glucose (UA) Neg mg/dL (Negative) 11/05/16 13:09 Urine Ketones Neg mg/dL (Negative) 11/05/16 13:09 Urine Blood Neg (Negative) 11/05/16 13:09 Urine Nitrite Neg (Negative) 11/05/16 13:09 Urine Bilirubin Neg (Negative) 11/05/16 13:09 Urine Urobilinogen < 2.0 mg/dL (<2.0) 11/05/16 13:09 Ur Leukocyte Esterase Neg (Negative) 11/05/16 13:09 Urine WBC (Auto) 4.0 /HPF (0.0-6.0) 11/05/16 13:09 Urine RBC (Auto) 1.0 /HPF (0.0-6.0) 11/05/16 13:09 U Epithel Cells (Auto) 1.0 /HPF (0-13.0) 10/07/16 18:30 Urine Bacteria (Auto) 4+ /HPF (Negative) 11/05/16 13:09 Urine WBC Clumps 2+ /HPF 09/07/16 02:47 Hyaline Casts 4 /LPF 09/07/16 02:47 Urine Mucus Few /HPF 10/07/16 18:30 Urine Yeast (Budding) 3+ /HPF 10/07/16 18:30 Urine Eosinophils None seen (None Seen) 09/07/16 16:00 Urine Total Volume 950 11/12/16 10:18 Urine Creatinine 19.7 mg/dL (0.1-20.0) 11/12/16 10:18 Height (in) 65.0 inches 11/12/16 10:18 Weight (lb) 181.0 lbs 11/12/16 10:18 Creatinine Clearance 5 11/12/16 10:18 Urine Sodium 36 mEq/L 09/16/16 19:19 Urine Total Protein 16 mg/dL (5-11.8) H 09/16/16 19:19 Fluid Total Protein < 3.0 (15.0-45.0) L 11/10/16 14:20 Fluid LDH 123 11/10/16 14:20 Vancomycin Trough 2.3 ug/mL (5.0-20.0) L 09/21/16 13:00 Random Vancomycin 16.5 ug/mL (0-40.0) 11/28/16 09:45 Urine Opiates Screen Presumptive negative 09/03/16 15:11 Urine Methadone Screen Presumptive positive 09/03/16 15:11 Ur Barbiturates Screen Presumptive positive 09/03/16 15:11 Ur Phencyclidine Scrn Presumptive negative 09/03/16 15:11 Ur Amphetamines Screen Presumptive negative 09/03/16 15:11 U Benzodiazepines Scrn Presumptive negative 09/03/16 15:11 Urine Cocaine Screen Presumptive negative 09/03/16 15:11 U Marijuana (THC) Screen Presumptive positive 09/03/16 15:11 Drugs of Abuse Note Disclamer 09/03/16 15:11 Rheumatoid Factor 24 IU/ml (0-13) H 09/08/16 11:48 SAHIL Screen Negative (Negative) 09/07/16 09:20 Proteinase 3 (PR3) Ab <1.0 AI (<1.0) 09/07/16 09:20 Myeloperoxidase Ab <1.0 AI (<1.0) 09/07/16 09:20 Sjogren's Antibody <1.0 AI (<1.0) 09/08/16 15:35 Scl-70 Scleroderma Ab <1.0 AI (<1.0) 09/08/16 15:35 Centromere B Antibody <1.0 AI (<1.0) 09/08/16 12:02 Heparin-induced Plt Ab Negative (Negative) 09/29/16 13:35 UF Heparin High Dose 11 % Release 09/29/16 13:35 SUDHIR UFH Low Dose 0.1 6 % Release 09/29/16 13:35 SUDHIR UFH Low Dose 0.5 8 % Release 09/29/16 13:35 Cardiolipid IgG Ab <14 GPL (<=14) 09/12/16 09:59 Cardiolipid IgA Ab <11 APL (<=11) 09/12/16 09:59 Cardiolipid IgM Ab <12 MPL (<=12) 09/12/16 09:59 Complement C3 148 mg/dL (90-180) 09/07/16 09:20 Complement C4 58 mg/dL (16-47) H 09/07/16 09:20 RPR Nonreactive (Nonreactive) 09/08/16 11:48 Hepatitis A IgM Ab Non-reactive (NonReactive) 09/24/16 14:40 Hep Bs Antigen Non-reactive (Negative) 09/24/16 14:40 Hep B Core IgM Ab Non-reactive (NonReactive) 09/24/16 14:40 Hepatitis C Antibody Non-reactive (NonReactive) 09/24/16 14:40 HIV 1&2 Antibody Rapid Non react (Non React) 09/08/16 11:48 HIV P24 Antigen Non react (Non React) 09/08/16 11:48 Miscellaneous Test Flexitest 1 H 11/05/16 13:25 Blood Type A POSITIVE 12/16/16 16:25 Antibody Screen Negative 12/16/16 16:25 DELORIS Antibody Screen Negative 11/24/16 11:20 Crossmatch See Detail 12/16/16 16:25
[2016-12-21] MEDS ORDERED: INTRALIPID 20% 250 ML IV SCH (20:00)
[2016-12-21] MEDS ORDERED: TPN ADULT IV SCH (20:00)
[2016-12-21] MEDS: CORDARONE PO SCH (21:30)
[2016-12-21] MEDS: TYLENOL FEEDTUBE PRN (21:31)
[2016-12-22] MEDS: HumuLIN R SUB-Q SCH ×4 (00:01→17:48)
[2016-12-22] MEDS: LOPRESSOR PO SCH ×4 (00:01→17:47)
[2016-12-22] MEDS: DUONEB *Not for PRN Use IH SCH ×4 (02:57→19:12)
[2016-12-22] MEDS: APRESOLINE PO SCH ×3 (06:20→21:59)
[2016-12-22 07:09] LABS: Calcium 8.7 mg/dL (8.4-10.2)
--- NOTE | 2016-12-22 08:40 | Progress Note ---
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 Remains stable of pressors. Objective - Vital Signs Vital signs: Vital Signs - 12hr 12/21/16 12/21/16 12/21/16 20:45 21:00 21:15 Temperature Pulse Rate 105 H 105 H 103 H Pulse Rate [ Anterior Bilateral Throughout] Pulse Rate [ From Monitor] Respiratory 13 13 14 Rate Respiratory Rate [Anterior Bilateral Throughout] Respiratory Rate [ Generalized] Blood Pressure 128/77 132/83 129/79 O2 Sat by Pulse 96 97 93 Oximetry O2 Sat by Pulse Oximetry [ Assessment] 12/21/16 12/21/16 12/21/16 21:30 21:31 21:45 Temperature Pulse Rate 105 H 102 H Pulse Rate [ Anterior Bilateral Throughout] Pulse Rate [ From Monitor] Respiratory 27 H 30 H 21 Rate Respiratory Rate [Anterior Bilateral Throughout] Respiratory 30 H Rate [ Generalized] Blood Pressure 131/79 118/75 O2 Sat by Pulse 97 98 Oximetry O2 Sat by Pulse 98 Oximetry [ Assessment] 12/21/16 12/21/16 12/21/16 22:00 22:15 22:30 Temperature Pulse Rate 105 H 115 H 112 H Pulse Rate [ Anterior Bilateral Throughout] Pulse Rate [ From Monitor] Respiratory 29 H 23 26 H Rate Respiratory Rate [Anterior Bilateral Throughout] Respiratory Rate [ Generalized] Blood Pressure 124/81 124/81 120/74 O2 Sat by Pulse 94 96 96 Oximetry O2 Sat by Pulse Oximetry [ Assessment] 12/21/16 12/21/16 12/21/16 22:31 22:45 23:00 Temperature Pulse Rate 104 H 104 H Pulse Rate [ Anterior Bilateral Throughout] Pulse Rate [ From Monitor] Respiratory 22 25 H 25 H Rate Respiratory Rate [Anterior Bilateral Throughout] Respiratory Rate [ Generalized] Blood Pressure 103/58 111/62 O2 Sat by Pulse 97 98 Oximetry O2 Sat by Pulse Oximetry [ Assessment] 12/21/16 12/21/16 12/21/16 23:15 23:30 23:45 Temperature Pulse Rate 101 H 99 H 102 H Pulse Rate [ Anterior Bilateral Throughout] Pulse Rate [ From Monitor] Respiratory 23 23 22 Rate Respiratory Rate [Anterior Bilateral Throughout] Respiratory Rate [ Generalized] Blood Pressure 96/54 102/53 111/58 O2 Sat by Pulse 97 98 97 Oximetry O2 Sat by Pulse Oximetry [ Assessment] 12/22/16 12/22/16 12/22/16 00:00 00:01 00:15 Temperature 98.1 F Pulse Rate 106 H 105 H 106 H Pulse Rate [ Anterior Bilateral Throughout] Pulse Rate [ 106 H From Monitor] Respiratory 24 25 H Rate Respiratory Rate [Anterior Bilateral Throughout] Respiratory Rate [ Generalized] Blood Pressure 116/65 111/58 122/67 O2 Sat by Pulse 96 97 Oximetry O2 Sat by Pulse Oximetry [ Assessment] 12/22/16 12/22/16 12/22/16 00:30 00:45 01:00 Temperature Pulse Rate 104 H 104 H 104 H Pulse Rate [ Anterior Bilateral Throughout] Pulse Rate [ From Monitor] Respiratory 23 23 25 H Rate Respiratory Rate [Anterior Bilateral Throughout] Respiratory Rate [ Generalized] Blood Pressure 112/70 111/70 116/69 O2 Sat by Pulse 98 98 98 Oximetry O2 Sat by Pulse Oximetry [ Assessment] 12/22/16 12/22/16 12/22/16 01:15 01:29 01:30 Temperature Pulse Rate 103 H 103 H Pulse Rate [ Anterior Bilateral Throughout] Pulse Rate [ From Monitor] Respiratory 22 27 H Rate Respiratory Rate [Anterior Bilateral Throughout] Respiratory Rate [ Generalized] Blood Pressure 115/73 118/71 O2 Sat by Pulse 98 98 Oximetry O2 Sat by Pulse 99 Oximetry [ Assessment] 12/22/16 12/22/16 12/22/16 01:45 02:00 02:15 Temperature Pulse Rate 103 H 104 H 103 H Pulse Rate [ Anterior Bilateral Throughout] Pulse Rate [ From Monitor] Respiratory 25 H 24 21 Rate Respiratory Rate [Anterior Bilateral Throughout] Respiratory Rate [ Generalized] Blood Pressure 114/72 118/74 104/62 O2 Sat by Pulse 98 98 98 Oximetry O2 Sat by Pulse Oximetry [ Assessment] 12/22/16 12/22/16 12/22/16 02:30 02:37 02:45 Temperature Pulse Rate 105 H 102 H 104 H Pulse Rate [ Anterior Bilateral Throughout] Pulse Rate [ From Monitor] Respiratory 25 H 23 Rate Respiratory Rate [Anterior Bilateral Throughout] Respiratory Rate [ Generalized] Blood Pressure 122/70 115/71 O2 Sat by Pulse 98 98 Oximetry O2 Sat by Pulse Oximetry [ Assessment] 12/22/16 12/22/16 12/22/16 02:58 03:00 03:15 Temperature Pulse Rate 107 H 110 H Pulse Rate [ 103 H Anterior Bilateral Throughout] Pulse Rate [ From Monitor] Respiratory 13 13 Rate Respiratory 22 Rate [Anterior Bilateral Throughout] Respiratory Rate [ Generalized] Blood Pressure 126/79 116/75 O2 Sat by Pulse 98 97 Oximetry O2 Sat by Pulse Oximetry [ Assessment] 12/22/16 12/22/16 12/22/16 03:30 03:45 04:00 Temperature 98.8 F Pulse Rate 111 H 108 H 109 H Pulse Rate [ Anterior Bilateral Throughout] Pulse Rate [ 109 H From Monitor] Respiratory 24 21 25 H Rate Respiratory Rate [Anterior Bilateral Throughout] Respiratory Rate [ Generalized] Blood Pressure 126/73 120/76 119/75 O2 Sat by Pulse 97 97 97 Oximetry O2 Sat by Pulse Oximetry [ Assessment] 12/22/16 12/22/16 12/22/16 04:07 04:15 04:30 Temperature Pulse Rate 99 H 110 H 109 H Pulse Rate [ Anterior Bilateral Throughout] Pulse Rate [ From Monitor] Respiratory 25 H 25 H Rate Respiratory Rate [Anterior Bilateral Throughout] Respiratory Rate [ Generalized] Blood Pressure 112/65 128/79 130/82 O2 Sat by Pulse 100 97 97 Oximetry O2 Sat by Pulse Oximetry [ Assessment] 12/22/16 12/22/16 12/22/16 04:45 05:00 05:15 Temperature Pulse Rate 110 H 108 H 108 H Pulse Rate [ Anterior Bilateral Throughout] Pulse Rate [ From Monitor] Respiratory 23 23 23 Rate Respiratory Rate [Anterior Bilateral Throughout] Respiratory Rate [ Generalized] Blood Pressure 126/76 125/83 131/77 O2 Sat by Pulse 97 97 97 Oximetry O2 Sat by Pulse Oximetry [ Assessment] 12/22/16 12/22/16 12/22/16 05:30 05:45 06:00 Temperature Pulse Rate 112 H Pulse Rate [ Anterior Bilateral Throughout] Pulse Rate [ From Monitor] Respiratory 35 H Rate Respiratory Rate [Anterior Bilateral Throughout] Respiratory Rate [ Generalized] Blood Pressure 149/91 131/77 167/109 O2 Sat by Pulse 99 98 97 Oximetry O2 Sat by Pulse Oximetry [ Assessment] 12/22/16 12/22/16 12/22/16 06:15 06:20 06:21 Temperature Pulse Rate 107 H 106 H 107 H Pulse Rate [ Anterior Bilateral Throughout] Pulse Rate [ From Monitor] Respiratory 26 H Rate Respiratory Rate [Anterior Bilateral Throughout] Respiratory Rate [ Generalized] Blood Pressure 149/94 149/94 149/94 O2 Sat by Pulse 97 Oximetry O2 Sat by Pulse Oximetry [ Assessment] 12/22/16 12/22/16 12/22/16 06:30 06:45 07:00 Temperature Pulse Rate 102 H 89 86 Pulse Rate [ Anterior Bilateral Throughout] Pulse Rate [ From Monitor] Respiratory 26 H 20 22 Rate Respiratory Rate [Anterior Bilateral Throughout] Respiratory Rate [ Generalized] Blood Pressure 142/93 130/92 131/86 O2 Sat by Pulse 88 97 97 Oximetry O2 Sat by Pulse Oximetry [ Assessment] 12/22/16 12/22/16 12/22/16 07:15 07:30 07:45 Temperature Pulse Rate 85 85 84 Pulse Rate [ Anterior Bilateral Throughout] Pulse Rate [ From Monitor] Respiratory 20 24 24 Rate Respiratory Rate [Anterior Bilateral Throughout] Respiratory Rate [ Generalized] Blood Pressure 122/91 129/87 124/81 O2 Sat by Pulse 97 97 97 Oximetry O2 Sat by Pulse Oximetry [ Assessment] 12/22/16 12/22/16 07:57 08:00 Temperature 98.7 F Pulse Rate 83 Pulse Rate [ Anterior Bilateral Throughout] Pulse Rate [ From Monitor] Respiratory 22 Rate Respiratory Rate [Anterior Bilateral Throughout] Respiratory Rate [ Generalized] Blood Pressure 121/81 O2 Sat by Pulse 97 Oximetry O2 Sat by Pulse Oximetry [ Assessment] - General Appearance General appearance: intubated (via trach) EENT: ATNC Neck: other (trach collar) Respiratory: Present: Decreased Breath Sounds Cardiology: regular, S1S2 Gastrointestinal: hypoactive bowel sounds Integumentary: warm and dry Musculoskeletal: other (trace edema) - Lab 12/19/16 05:02 12/23/16 05:00 Most recent lab results ABG pH 7.450 pH Units (7.350-7.450) 12/05/16 Unknown ABG pCO2 29.6 mm Hg 12/05/16 Unknown ABG pO2 75.2 mm Hg (80.0-90.0) L 12/05/16 Unknown ABG HCO3 20.1 mmol/L (20.0-26.0) 12/05/16 Unknown ABG O2 Saturation 96.8 % (95.0-99.0) 12/05/16 Unknown Calcium 8.7 mg/dL (8.4-10.2) 12/22/16 06:10 Phosphorus 4.00 mg/dL (2.5-4.5) 12/22/16 06:10 Magnesium 1.90 mg/dL (1.7-2.3) 12/22/16 06:10 Urine Creatinine 19.7 mg/dL (0.1-20.0) 11/12/16 10:18 Urine Sodium 36 mEq/L 09/16/16 19:19 Urine Total Protein 16 mg/dL (5-11.8) H 09/16/16 19:19
[2016-12-22] MEDS: ROBINUL PO SCH ×2 (09:38→22:03)
[2016-12-22] MEDS: PROTONIX FEEDTUBE SCH (09:38)
[2016-12-22] MEDS: HEPARIN SUB-Q SCH ×2 (09:39→21:52)
--- NOTE | 2016-12-22 09:46 | Progress Note ---
Assessment and Plan Patient is 46-year-old woman with a history of hypertension, diabetes mellitus, asthma, hyperlipidemia, chronic kidney disease and anxiety, who was brought in by family because she couldn't get her words out, her face was also twisted, she was admitted for acute CVA and accelerated hypertension, she had a hx of poor adherence with her medications, and uncontrolled htn. Patient's SBP on admission was noted be greater than 260. TPA was started but this it was discontinued after 5 minutes because her blood pressure became uncontrolled. The TPA was not initiated again because the patient was outside the TPA window. Patient has had a prolonged hospital stay complicated with recurrent severe sepsis. Patient with most recent event also status post cardiac arrest on , with CPR and ROSC. Acute on chronic Hypoxemic Respiratory Failure ( not tolerating spontaneous breathing trials) Sepsis -recurrent s/p tracheostomy Hypertension Atrial Fibrillation with RVR Acute encephalopathy s/p CVA Oropharyngeal dysphagia Enterococcal bacteremia Sacral Decubitus Ulcer- unstageable Anemia Obesity JUANITA now on hemodialysis Enteric Fistula - VAP bundle addressed -CXR prn - continue NGT to LIS - continue wound care per WCT - Vasopressor if MAP falls < 65mmHg - keep on with daily PSV trials and / or T-piece as tolerated - continue TPN administration (continue TPN; NPO except for meds) - continue airway clearance nd secretion management - continue to wean FiO2 for sats > 94% - continue antihypertensives and monitor hemodynamics closely - continue HD/UF per nephrology - continue to follow electrolytes and correct as necessary - continue GI & VTE prophylaxis -per Cardiology--failed cardioversion, not a candidate fro full anticoagulation. No further recommendations for management of atrial fibrillation. Rate control as tolerated by hemodynamics For further interventions per surgical service, as it pertains to the replacement of the PEG tube. 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 - Patient Problems (1) Acute respiratory failure with hypoxia Current Visit: Yes Status: Acute (2) Acute blood loss anemia Current Visit: Yes Status: Resolved (3) Acute CVA (cerebrovascular accident) Current Visit: Yes Status: Acute (4) Chronic renal insufficiency Current Visit: Yes Status: Acute Qualifiers: Chronic kidney disease stage: C (5) Uncontrolled hypertension Current Visit: Yes Status: Acute (6) Leukocytosis (leucocytosis) Current Visit: Yes Status: Acute Qualifiers: Leukocytosis type: leukemoid reaction Qualified Code(s): D72.823 - Leukemoid reaction (7) Dislodged gastrostomy tube Current Visit: Yes Status: Acute (8) Fungemia Current Visit: Yes Status: Resolved (9) Cardiopulmonary arrest with successful resuscitation Current Visit: Yes Status: Acute Subjective Date of service: 12/22/16 Principal diagnosis: Acute resp failure on MVS; S/P Acute CVA; Acute Encephalopathy; JUANITA Interval history: Seen and examined. Vitals, labs, medications, chart reviewed. On mechanical ventilatory support, very tachypnic with SBT, placed back on full support. Rested on full mechanical support overnight. Sacral decubitus ulcer appears worse, gutierrez catheter placed No further episodes of vomiting. No fevers documented or reported HD today Discussed in interdisciplinary rounds Objective - Exam Narrative Exam: Patient is on mechanical ventilation Vital signs as documented. Head exam is unremarkable. No scleral icterus . Neck is without jugular venous distension,s/p tracheostomy to ventilator Lungs are clear to auscultation. Cardiac exam reveals regular rate and Rhythm. First and second heart sounds normal. No murmurs, rubs or gallops. Abdominal exam reveals abscess draining from the PEG site, and multiple fistulas around the stomach. Extremities are non edematous and both femoral and pedal pulses are normal. Sacral decubitus ulcer. PHARMACISTS:awake, alert, not obeying commands Vital Signs - 12hr 12/21/16 12/21/16 12/21/16 21:45 22:00 22:15 Temperature Pulse Rate 102 H 105 H 115 H Pulse Rate [ Anterior Bilateral Throughout] Pulse Rate [ From Monitor] Respiratory 21 29 H 23 Rate Respiratory Rate [Anterior Bilateral Throughout] Blood Pressure 118/75 124/81 124/81 O2 Sat by Pulse 98 94 96 Oximetry O2 Sat by Pulse Oximetry [ Assessment] 12/21/16 12/21/16 12/21/16 22:30 22:31 22:45 Temperature Pulse Rate 112 H 104 H Pulse Rate [ Anterior Bilateral Throughout] Pulse Rate [ From Monitor] Respiratory 26 H 22 25 H Rate Respiratory Rate [Anterior Bilateral Throughout] Blood Pressure 120/74 103/58 O2 Sat by Pulse 96 97 Oximetry O2 Sat by Pulse Oximetry [ Assessment] 12/21/16 12/21/16 12/21/16 23:00 23:15 23:30 Temperature Pulse Rate 104 H 101 H 99 H Pulse Rate [ Anterior Bilateral Throughout] Pulse Rate [ From Monitor] Respiratory 25 H 23 23 Rate Respiratory Rate [Anterior Bilateral Throughout] Blood Pressure 111/62 96/54 102/53 O2 Sat by Pulse 98 97 98 Oximetry O2 Sat by Pulse Oximetry [ Assessment] 12/21/16 12/22/16 12/22/16 23:45 00:00 00:01 Temperature 98.1 F Pulse Rate 102 H 106 H 105 H Pulse Rate [ Anterior Bilateral Throughout] Pulse Rate [ 106 H From Monitor] Respiratory 22 24 Rate Respiratory Rate [Anterior Bilateral Throughout] Blood Pressure 111/58 116/65 111/58 O2 Sat by Pulse 97 96 Oximetry O2 Sat by Pulse Oximetry [ Assessment] 12/22/16 12/22/16 12/22/16 00:15 00:30 00:45 Temperature Pulse Rate 106 H 104 H 104 H Pulse Rate [ Anterior Bilateral Throughout] Pulse Rate [ From Monitor] Respiratory 25 H 23 23 Rate Respiratory Rate [Anterior Bilateral Throughout] Blood Pressure 122/67 112/70 111/70 O2 Sat by Pulse 97 98 98 Oximetry O2 Sat by Pulse Oximetry [ Assessment] 12/22/16 12/22/16 12/22/16 01:00 01:15 01:29 Temperature Pulse Rate 104 H 103 H Pulse Rate [ Anterior Bilateral Throughout] Pulse Rate [ From Monitor] Respiratory 25 H 22 Rate Respiratory Rate [Anterior Bilateral Throughout] Blood Pressure 116/69 115/73 O2 Sat by Pulse 98 98 Oximetry O2 Sat by Pulse 99 Oximetry [ Assessment] 12/22/16 12/22/16 12/22/16 01:30 01:45 02:00 Temperature Pulse Rate 103 H 103 H 104 H Pulse Rate [ Anterior Bilateral Throughout] Pulse Rate [ From Monitor] Respiratory 27 H 25 H 24 Rate Respiratory Rate [Anterior Bilateral Throughout] Blood Pressure 118/71 114/72 118/74 O2 Sat by Pulse 98 98 98 Oximetry O2 Sat by Pulse Oximetry [ Assessment] 12/22/16 12/22/16 12/22/16 02:15 02:30 02:37 Temperature Pulse Rate 103 H 105 H 102 H Pulse Rate [ Anterior Bilateral Throughout] Pulse Rate [ From Monitor] Respiratory 21 25 H Rate Respiratory Rate [Anterior Bilateral Throughout] Blood Pressure 104/62 122/70 O2 Sat by Pulse 98 98 Oximetry O2 Sat by Pulse Oximetry [ Assessment] 12/22/16 12/22/16 12/22/16 02:45 02:58 03:00 Temperature Pulse Rate 104 H 107 H Pulse Rate [ 103 H Anterior Bilateral Throughout] Pulse Rate [ From Monitor] Respiratory 23 13 Rate Respiratory 22 Rate [Anterior Bilateral Throughout] Blood Pressure 115/71 126/79 O2 Sat by Pulse 98 98 Oximetry O2 Sat by Pulse Oximetry [ Assessment] 12/22/16 12/22/16 12/22/16 03:15 03:30 03:45 Temperature Pulse Rate 110 H 111 H 108 H Pulse Rate [ Anterior Bilateral Throughout] Pulse Rate [ From Monitor] Respiratory 13 24 21 Rate Respiratory Rate [Anterior Bilateral Throughout] Blood Pressure 116/75 126/73 120/76 O2 Sat by Pulse 97 97 97 Oximetry O2 Sat by Pulse Oximetry [ Assessment] 12/22/16 12/22/16 12/22/16 04:00 04:07 04:15 Temperature 98.8 F Pulse Rate 109 H 99 H 110 H Pulse Rate [ Anterior Bilateral Throughout] Pulse Rate [ 109 H From Monitor] Respiratory 25 H 25 H Rate Respiratory Rate [Anterior Bilateral Throughout] Blood Pressure 119/75 112/65 128/79 O2 Sat by Pulse 97 100 97 Oximetry O2 Sat by Pulse Oximetry [ Assessment] 12/22/16 12/22/16 12/22/16 04:30 04:45 05:00 Temperature Pulse Rate 109 H 110 H 108 H Pulse Rate [ Anterior Bilateral Throughout] Pulse Rate [ From Monitor] Respiratory 25 H 23 23 Rate Respiratory Rate [Anterior Bilateral Throughout] Blood Pressure 130/82 126/76 125/83 O2 Sat by Pulse 97 97 97 Oximetry O2 Sat by Pulse Oximetry [ Assessment] 12/22/16 12/22/16 12/22/16 05:15 05:30 05:45 Temperature Pulse Rate 108 H Pulse Rate [ Anterior Bilateral Throughout] Pulse Rate [ From Monitor] Respiratory 23 Rate Respiratory Rate [Anterior Bilateral Throughout] Blood Pressure 131/77 149/91 131/77 O2 Sat by Pulse 97 99 98 Oximetry O2 Sat by Pulse Oximetry [ Assessment] 12/22/16 12/22/16 12/22/16 06:00 06:15 06:20 Temperature Pulse Rate 112 H 107 H 106 H Pulse Rate [ Anterior Bilateral Throughout] Pulse Rate [ From Monitor] Respiratory 35 H 26 H Rate Respiratory Rate [Anterior Bilateral Throughout] Blood Pressure 167/109 149/94 149/94 O2 Sat by Pulse 97 97 Oximetry O2 Sat by Pulse Oximetry [ Assessment] 12/22/16 12/22/16 12/22/16 06:21 06:30 06:45 Temperature Pulse Rate 107 H 102 H 89 Pulse Rate [ Anterior Bilateral Throughout] Pulse Rate [ From Monitor] Respiratory 26 H 20 Rate Respiratory Rate [Anterior Bilateral Throughout] Blood Pressure 149/94 142/93 130/92 O2 Sat by Pulse 88 97 Oximetry O2 Sat by Pulse Oximetry [ Assessment] 12/22/16 12/22/16 12/22/16 07:00 07:15 07:30 Temperature Pulse Rate 86 85 85 Pulse Rate [ Anterior Bilateral Throughout] Pulse Rate [ From Monitor] Respiratory 22 20 24 Rate Respiratory Rate [Anterior Bilateral Throughout] Blood Pressure 131/86 122/91 129/87 O2 Sat by Pulse 97 97 97 Oximetry O2 Sat by Pulse Oximetry [ Assessment] 12/22/16 12/22/16 12/22/16 07:45 07:57 08:00 Temperature 98.7 F Pulse Rate 84 83 Pulse Rate [ Anterior Bilateral Throughout] Pulse Rate [ From Monitor] Respiratory 24 22 Rate Respiratory Rate [Anterior Bilateral Throughout] Blood Pressure 124/81 121/81 O2 Sat by Pulse 97 97 Oximetry O2 Sat by Pulse Oximetry [ Assessment] 12/22/16 12/22/16 12/22/16 08:15 08:30 08:45 Temperature Pulse Rate 85 85 85 Pulse Rate [ Anterior Bilateral Throughout] Pulse Rate [ From Monitor] Respiratory 23 24 21 Rate Respiratory Rate [Anterior Bilateral Throughout] Blood Pressure 126/83 126/89 133/90 O2 Sat by Pulse 97 98 97 Oximetry O2 Sat by Pulse Oximetry [ Assessment] 12/22/16 12/22/16 12/22/16 08:59 09:00 09:06 Temperature Pulse Rate 84 85 84 Pulse Rate [ Anterior Bilateral Throughout] Pulse Rate [ From Monitor] Respiratory 30 H 9 L Rate Respiratory Rate [Anterior Bilateral Throughout] Blood Pressure 128/90 128/90 128/90 O2 Sat by Pulse 100 100 90 Oximetry O2 Sat by Pulse Oximetry [ Assessment] 12/22/16 12/22/16 09:13 09:22 Temperature Pulse Rate 87 Pulse Rate [ Anterior Bilateral Throughout] Pulse Rate [ From Monitor] Respiratory 14 Rate Respiratory Rate [Anterior Bilateral Throughout] Blood Pressure O2 Sat by Pulse 96 Oximetry O2 Sat by Pulse 99 Oximetry [ Assessment] Constitutional: no acute distress, other (eyes open; not tracking movements) Eyes: non-icteric, other (tracheostomy tube in midline of neck) ENT: oropharynx moist Neck: supple, no lymphadenopathy Effort: normal, mildly labored Ascultation: Bilateral: clear, diminished breath sounds (bases), rales, rhonchi (and referred upper airway sounds) Percussion: Left: dull (base), Bilateral: not dull Cardiovascular: regular rate and rhythm, irregular rhythm Gastrointestinal: normoactive bowel sounds, hypoactive bowel sounds, soft, non- tender, non-distended, other (RLQ stomas with colostomy bags) Integumentary: normal, other Extremities: no cyanosis, no edema (bilateral lower extremity edema), pulses normal, no ischemia or petechiae Neurologic: pupils equal and round, other (encephalopathic) Psychiatric: other (unable to assess) CBC and BMP: 12/30/16 04:20 01/02/17 06:00 ABG, PT/INR, D-dimer: ABG POC ABG pH 7.503 (7.35-7.45) H 12/19/16 09:36 ABG pH 7.450 pH Units (7.350-7.450) 12/05/16 Unknown POC ABG pCO2 30.1 (35-45) L 12/19/16 09:36 ABG pCO2 29.6 mm Hg 12/05/16 Unknown POC ABG pO2 85 (80-105) 12/19/16 09:36 ABG pO2 75.2 mm Hg (80.0-90.0) L 12/05/16 Unknown POC ABG HCO3 23.6 12/19/16 09:36 POC ABG Total CO2 25 12/19/16 09:36 POC ABG O2 Sat 97 12/19/16 09:36 ABG O2 Saturation 96.8 % (95.0-99.0) 12/05/16 Unknown PT/INR, D-dimer PT 16.8 Sec. (12.2-14.9) H 11/17/16 03:20 INR 1.37 (0.87-1.13) H 11/17/16 03:20 Abnormal lab findings: Abnormal Labs 07/15/17 07/15/17 07/15/17 12:12 15:07 16:20 WBC RBC Hgb Hct MCV MCH MCHC RDW Plt Count Lymph % (Auto) [place] % (Auto) Lymph # [place] # Baso # Seg Neutrophils % Seg Neuts % (Manual) Lymphocytes % (Manual) Monocytes % (Manual) Eosinophils % (Manual) Basophils % (Manual) Nucleated RBC % Seg Neutrophils # Seg Neutrophils # Man Lymphocytes # (Manual) Monocytes # (Manual) Eosinophils # (Manual) Basophils # (Manual) PT INR Fibrinogen dRVVT Confirm Interp Factor V Activity POC ABG pH 7.452 H POC ABG pCO2 POC ABG pO2 ABG pO2 ABG HCO3 ABG Base Excess ABG Hemoglobin Oxyhemoglobin Sodium Potassium Chloride Carbon Dioxide BUN Creatinine Glucose POC Glucose 178 H Lactic Acid Calcium Phosphorus 2.20 L Magnesium 1.60 L Direct Bilirubin AST ALT Alkaline Phosphatase Lactate Dehydrogenase Troponin T C-Reactive Protein Total Protein Albumin Prealbumin Triglycerides Cholesterol LDL Cholesterol Direct HDL Cholesterol Urine pH Urine WBC (Auto) Urine Creatinine Urine Total Protein Fluid Total Protein Vancomycin Trough Rheumatoid Factor Complement C4 Miscellaneous Test Crossmatch 09/03/16 09/03/16 09/03/16 17:57 17:58 23:50 WBC RBC Hgb Hct MCV MCH MCHC RDW Plt Count Lymph % (Auto) [place] % (Auto) Lymph # [place] # Baso # Seg Neutrophils % Seg Neuts % (Manual) Lymphocytes % (Manual) Monocytes % (Manual) Eosinophils % (Manual) Basophils % (Manual) Nucleated RBC % Seg Neutrophils # Seg Neutrophils # Man Lymphocytes # (Manual) Monocytes # (Manual) Eosinophils # (Manual) Basophils # (Manual) PT INR Fibrinogen dRVVT Confirm Interp Factor V Activity POC ABG pH POC ABG pCO2 POC ABG pO2 ABG pO2 ABG HCO3 ABG Base Excess ABG Hemoglobin Oxyhemoglobin Sodium Potassium Chloride Carbon Dioxide BUN Creatinine Glucose POC Glucose 162 H 145 H Lactic Acid Calcium Phosphorus 2.30 L Magnesium Direct Bilirubin AST ALT Alkaline Phosphatase Lactate Dehydrogenase Troponin T C-Reactive Protein Total Protein Albumin Prealbumin Triglycerides Cholesterol LDL Cholesterol Direct HDL Cholesterol Urine pH Urine WBC (Auto) Urine Creatinine Urine Total Protein Fluid Total Protein Vancomycin Trough Rheumatoid Factor Complement C4 Miscellaneous Test Crossmatch 09/04/16 09/04/16 09/04/16 03:31 03:31 05:42 WBC RBC Hgb 9.7 L D Hct MCV 72 L MCH 23 L MCHC RDW 17.5 H Plt Count Lymph % (Auto) 11.1 L [place] % (Auto) Lymph # [place] # Baso # Seg Neutrophils % 84.3 H Seg Neuts % (Manual) Lymphocytes % (Manual) Monocytes % (Manual) Eosinophils % (Manual) Basophils % (Manual) Nucleated RBC % Seg Neutrophils # 8.9 H Seg Neutrophils # Man Lymphocytes # (Manual) Monocytes # (Manual) Eosinophils # (Manual) Basophils # (Manual) PT INR Fibrinogen dRVVT Confirm Interp Factor V Activity POC ABG pH POC ABG pCO2 POC ABG pO2 ABG pO2 ABG HCO3 ABG Base Excess ABG Hemoglobin Oxyhemoglobin Sodium 135 L Potassium 2.9 L* Chloride 97.2 L Carbon Dioxide 19 L BUN Creatinine 1.7 H Glucose 170 H POC Glucose 152 H Lactic Acid Calcium Phosphorus Magnesium Direct Bilirubin AST ALT Alkaline Phosphatase Lactate Dehydrogenase Troponin T C-Reactive Protein Total Protein Albumin Prealbumin Triglycerides 160 H Cholesterol LDL Cholesterol Direct HDL Cholesterol 31 L Urine pH Urine WBC (Auto) Urine Creatinine Urine Total Protein Fluid Total Protein Vancomycin Trough Rheumatoid Factor Complement C4 Miscellaneous Test Crossmatch 09/04/16 09/04/16 09/04/16 11:34 17:46 23:29 WBC RBC Hgb Hct MCV MCH MCHC RDW Plt Count Lymph % (Auto) [place] % (Auto) Lymph # [place] # Baso # Seg Neutrophils % Seg Neuts % (Manual) Lymphocytes % (Manual) Monocytes % (Manual) Eosinophils % (Manual) Basophils % (Manual) Nucleated RBC % Seg Neutrophils # Seg Neutrophils # Man Lymphocytes # (Manual) Monocytes # (Manual) Eosinophils # (Manual) Basophils # (Manual) PT INR Fibrinogen dRVVT Confirm Interp Factor V Activity POC ABG pH POC ABG pCO2 POC ABG pO2 ABG pO2 ABG HCO3 ABG Base Excess ABG Hemoglobin Oxyhemoglobin Sodium Potassium Chloride Carbon Dioxide BUN Creatinine Glucose POC Glucose 165 H 210 H 139 H Lactic Acid Calcium Phosphorus Magnesium Direct Bilirubin AST ALT Alkaline Phosphatase Lactate Dehydrogenase Troponin T C-Reactive Protein Total Protein Albumin Prealbumin Triglycerides Cholesterol LDL Cholesterol Direct HDL Cholesterol Urine pH Urine WBC (Auto) Urine Creatinine Urine Total Protein Fluid Total Protein Vancomycin Trough Rheumatoid Factor Complement C4 Miscellaneous Test Crossmatch 09/05/16 09/05/16 09/05/16 04:05 04:05 05:38 WBC RBC Hgb Hct MCV 76 L D MCH 23 L MCHC RDW 17.8 H Plt Count Lymph % (Auto) [place] % (Auto) Lymph # [place] # Baso # Seg Neutrophils % Seg Neuts % (Manual) Lymphocytes % (Manual) Monocytes % (Manual) Eosinophils % (Manual) Basophils % (Manual) Nucleated RBC % Seg Neutrophils # Seg Neutrophils # Man Lymphocytes # (Manual) Monocytes # (Manual) Eosinophils # (Manual) Basophils # (Manual) PT INR Fibrinogen dRVVT Confirm Interp Factor V Activity POC ABG pH POC ABG pCO2 POC ABG pO2 ABG pO2 ABG HCO3 ABG Base Excess ABG Hemoglobin Oxyhemoglobin Sodium 134 L Potassium Chloride Carbon Dioxide 18 L BUN Creatinine 1.8 H Glucose 192 H POC Glucose 175 H Lactic Acid Calcium Phosphorus Magnesium Direct Bilirubin AST ALT Alkaline Phosphatase Lactate Dehydrogenase Troponin T C-Reactive Protein Total Protein Albumin Prealbumin Triglycerides Cholesterol LDL Cholesterol Direct HDL Cholesterol Urine pH Urine WBC (Auto) Urine Creatinine Urine Total Protein Fluid Total Protein Vancomycin Trough Rheumatoid Factor Complement C4 Miscellaneous Test Crossmatch 09/05/16 09/05/16 09/05/16 11:38 17:48 23:22 WBC RBC Hgb Hct MCV MCH MCHC RDW Plt Count Lymph % (Auto) [place] % (Auto) Lymph # [place] # Baso # Seg Neutrophils % Seg Neuts % (Manual) Lymphocytes % (Manual) Monocytes % (Manual) Eosinophils % (Manual) Basophils % (Manual) Nucleated RBC % Seg Neutrophils # Seg Neutrophils # Man Lymphocytes # (Manual) Monocytes # (Manual) Eosinophils # (Manual) Basophils # (Manual) PT INR Fibrinogen dRVVT Confirm Interp Factor V Activity POC ABG pH POC ABG pCO2 POC ABG pO2 ABG pO2 ABG HCO3 ABG Base Excess ABG Hemoglobin Oxyhemoglobin Sodium Potassium Chloride Carbon Dioxide BUN Creatinine Glucose POC Glucose 164 H 186 H 195 H Lactic Acid Calcium Phosphorus Magnesium Direct Bilirubin AST ALT Alkaline Phosphatase Lactate Dehydrogenase Troponin T C-Reactive Protein Total Protein Albumin Prealbumin Triglycerides Cholesterol LDL Cholesterol Direct HDL Cholesterol Urine pH Urine WBC (Auto) Urine Creatinine Urine Total Protein Fluid Total Protein Vancomycin Trough Rheumatoid Factor Complement C4 Miscellaneous Test Crossmatch 09/06/16 09/06/16 09/06/16 04:12 05:59 07:32 WBC RBC Hgb Hct MCV MCH MCHC RDW Plt Count Lymph % (Auto) [place] % (Auto) Lymph # [place] # Baso # Seg Neutrophils % Seg Neuts % (Manual) Lymphocytes % (Manual) Monocytes % (Manual) Eosinophils % (Manual) Basophils % (Manual) Nucleated RBC % Seg Neutrophils # Seg Neutrophils # Man Lymphocytes # (Manual) Monocytes # (Manual) Eosinophils # (Manual) Basophils # (Manual) PT INR Fibrinogen dRVVT Confirm Interp Factor V Activity POC ABG pH 7.514 H POC ABG pCO2 29.1 L POC ABG pO2 72 L ABG pO2 ABG HCO3 ABG Base Excess ABG Hemoglobin Oxyhemoglobin Sodium 133 L Potassium 3.4 L Chloride 94.9 L Carbon Dioxide 19 L BUN 30 H Creatinine 2.1 H Glucose 139 H POC Glucose 146 H Lactic Acid Calcium Phosphorus Magnesium Direct Bilirubin AST ALT Alkaline Phosphatase Lactate Dehydrogenase Troponin T C-Reactive Protein Total Protein Albumin Prealbumin Triglycerides Cholesterol LDL Cholesterol Direct HDL Cholesterol Urine pH Urine WBC (Auto) Urine Creatinine Urine Total Protein Fluid Total Protein Vancomycin Trough Rheumatoid Factor Complement C4 Miscellaneous Test Crossmatch 09/06/16 09/06/16 09/06/16 11:57 17:58 19:02 WBC RBC Hgb Hct MCV MCH MCHC RDW Plt Count Lymph % (Auto) [place] % (Auto) Lymph # [place] # Baso # Seg Neutrophils % Seg Neuts % (Manual) Lymphocytes % (Manual) Monocytes % (Manual) Eosinophils % (Manual) Basophils % (Manual) Nucleated RBC % Seg Neutrophils # Seg Neutrophils # Man Lymphocytes # (Manual) Monocytes # (Manual) Eosinophils # (Manual) Basophils # (Manual) PT INR Fibrinogen dRVVT Confirm Interp Factor V Activity POC ABG pH 7.465 H POC ABG pCO2 32.0 L POC ABG pO2 ABG pO2 ABG HCO3 ABG Base Excess ABG Hemoglobin Oxyhemoglobin Sodium Potassium Chloride Carbon Dioxide BUN Creatinine Glucose POC Glucose 165 H 160 H Lactic Acid Calcium Phosphorus Magnesium Direct Bilirubin AST ALT Alkaline Phosphatase Lactate Dehydrogenase Troponin T C-Reactive Protein Total Protein Albumin Prealbumin Triglycerides Cholesterol LDL Cholesterol Direct HDL Cholesterol Urine pH Urine WBC (Auto) Urine Creatinine Urine Total Protein Fluid Total Protein Vancomycin Trough Rheumatoid Factor Complement C4 Miscellaneous Test Crossmatch 09/06/16 09/07/16 09/07/16 23:45 02:47 02:47 WBC RBC Hgb Hct MCV MCH MCHC RDW Plt Count Lymph % (Auto) [place] % (Auto) Lymph # [place] # Baso # Seg Neutrophils % Seg Neuts % (Manual) Lymphocytes % (Manual) Monocytes % (Manual) Eosinophils % (Manual) Basophils % (Manual) Nucleated RBC % Seg Neutrophils # Seg Neutrophils # Man Lymphocytes # (Manual) Monocytes # (Manual) Eosinophils # (Manual) Basophils # (Manual) PT INR Fibrinogen dRVVT Confirm Interp Factor V Activity POC ABG pH POC ABG pCO2 POC ABG pO2 ABG pO2 ABG HCO3 ABG Base Excess ABG Hemoglobin Oxyhemoglobin Sodium Potassium Chloride Carbon Dioxide BUN Creatinine Glucose POC Glucose 204 H Lactic Acid Calcium Phosphorus Magnesium Direct Bilirubin AST ALT Alkaline Phosphatase Lactate Dehydrogenase Troponin T C-Reactive Protein Total Protein Albumin Prealbumin Triglycerides Cholesterol LDL Cholesterol Direct HDL Cholesterol Urine pH Urine WBC (Auto) 68.0 H Urine Creatinine 106.1 H Urine Total Protein Fluid Total Protein Vancomycin Trough Rheumatoid Factor Complement C4 Miscellaneous Test Crossmatch 09/07/16 09/07/16 09/07/16 04:50 06:19 06:39 WBC RBC Hgb Hct MCV MCH MCHC RDW Plt Count Lymph % (Auto) [place] % (Auto) Lymph # [place] # Baso # Seg Neutrophils % Seg Neuts % (Manual) Lymphocytes % (Manual) Monocytes % (Manual) Eosinophils % (Manual) Basophils % (Manual) Nucleated RBC % Seg Neutrophils # Seg Neutrophils # Man Lymphocytes # (Manual) Monocytes # (Manual) Eosinophils # (Manual) Basophils # (Manual) PT INR Fibrinogen dRVVT Confirm Interp Factor V Activity POC ABG pH 7.457 H POC ABG pCO2 32.1 L POC ABG pO2 76 L ABG pO2 ABG HCO3 ABG Base Excess ABG Hemoglobin Oxyhemoglobin Sodium 132 L Potassium Chloride 94.7 L Carbon Dioxide BUN 53 H Creatinine 2.9 H Glucose 151 H POC Glucose 149 H Lactic Acid Calcium Phosphorus Magnesium Direct Bilirubin AST ALT Alkaline Phosphatase Lactate Dehydrogenase Troponin T C-Reactive Protein Total Protein Albumin Prealbumin Triglycerides Cholesterol LDL Cholesterol Direct HDL Cholesterol Urine pH Urine WBC (Auto) Urine Creatinine Urine Total Protein Fluid Total Protein Vancomycin Trough Rheumatoid Factor Complement C4 Miscellaneous Test Crossmatch 09/07/16 09/07/16 09/07/16 09:20 11:43 11:43 WBC 19.4 H RBC Hgb 8.3 L Hct 26.4 L D MCV 72 L D MCH 22 L MCHC RDW 17.9 H Plt Count Lymph % (Auto) 8.5 L [place] % (Auto) Lymph # [place] # 1.0 H Baso # Seg Neutrophils % 85.8 H Seg Neuts % (Manual) Lymphocytes % (Manual) Monocytes % (Manual) Eosinophils % (Manual) Basophils % (Manual) Nucleated RBC % Seg Neutrophils # 16.6 H Seg Neutrophils # Man Lymphocytes # (Manual) Monocytes # (Manual) Eosinophils # (Manual) Basophils # (Manual) PT INR Fibrinogen dRVVT Confirm Interp Factor V Activity POC ABG pH POC ABG pCO2 POC ABG pO2 ABG pO2 ABG HCO3 ABG Base Excess ABG Hemoglobin Oxyhemoglobin Sodium 134 L Potassium Chloride 97.2 L Carbon Dioxide 20 L BUN 58 H Creatinine 2.9 H Glucose 147 H POC Glucose Lactic Acid Calcium Phosphorus 2.40 L Magnesium 2.40 H Direct Bilirubin AST ALT Alkaline Phosphatase Lactate Dehydrogenase Troponin T C-Reactive Protein Total Protein 5.8 L Albumin 2.2 L Prealbumin Triglycerides Cholesterol LDL Cholesterol Direct HDL Cholesterol Urine pH Urine WBC (Auto) Urine Creatinine Urine Total Protein Fluid Total Protein Vancomycin Trough Rheumatoid Factor Complement C4 58 H Miscellaneous Test Crossmatch 09/07/16 09/07/16 09/07/16 11:50 16:00 17:31 WBC RBC Hgb Hct MCV MCH MCHC RDW Plt Count Lymph % (Auto) [place] % (Auto) Lymph # [place] # Baso # Seg Neutrophils % Seg Neuts % (Manual) Lymphocytes % (Manual) Monocytes % (Manual) Eosinophils % (Manual) Basophils % (Manual) Nucleated RBC % Seg Neutrophils # Seg Neutrophils # Man Lymphocytes # (Manual) Monocytes # (Manual) Eosinophils # (Manual) Basophils # (Manual) PT INR Fibrinogen dRVVT Confirm Interp Factor V Activity POC ABG pH POC ABG pCO2 POC ABG pO2 158 H ABG pO2 ABG HCO3 ABG Base Excess ABG Hemoglobin Oxyhemoglobin Sodium Potassium Chloride Carbon Dioxide BUN Creatinine Glucose POC Glucose 175 H Lactic Acid Calcium Phosphorus Magnesium Direct Bilirubin AST ALT Alkaline Phosphatase Lactate Dehydrogenase Troponin T C-Reactive Protein Total Protein Albumin Prealbumin Triglycerides Cholesterol LDL Cholesterol Direct HDL Cholesterol Urine pH Urine WBC (Auto) Urine Creatinine 66.3 H Urine Total Protein Fluid Total Protein Vancomycin Trough Rheumatoid Factor Complement C4 Miscellaneous Test Crossmatch 09/07/16 09/08/16 09/08/16 23:50 05:46 06:18 WBC 17.8 H RBC 3.58 L Hgb 8.1 L Hct 25.5 L MCV 71 L MCH 23 L MCHC RDW 18.4 H Plt Count Lymph % (Auto) [place] % (Auto) Lymph # [place] # Baso # Seg Neutrophils % Seg Neuts % (Manual) 92.0 H Lymphocytes % (Manual) 6.0 L Monocytes % (Manual) Eosinophils % (Manual) Basophils % (Manual) Nucleated RBC % Seg Neutrophils # Seg Neutrophils # Man 16.4 H Lymphocytes # (Manual) 1.1 L Monocytes # (Manual) Eosinophils # (Manual) Basophils # (Manual) PT INR Fibrinogen dRVVT Confirm Interp Factor V Activity POC ABG pH POC ABG pCO2 34.3 L POC ABG pO2 71 L ABG pO2 ABG HCO3 ABG Base Excess ABG Hemoglobin Oxyhemoglobin Sodium Potassium Chloride Carbon Dioxide BUN Creatinine Glucose POC Glucose 216 H Lactic Acid Calcium Phosphorus Magnesium Direct Bilirubin AST ALT Alkaline Phosphatase Lactate Dehydrogenase Troponin T C-Reactive Protein Total Protein Albumin Prealbumin Triglycerides Cholesterol LDL Cholesterol Direct HDL Cholesterol Urine pH Urine WBC (Auto) Urine Creatinine Urine Total Protein Fluid Total Protein Vancomycin Trough Rheumatoid Factor Complement C4 Miscellaneous Test Crossmatch 09/08/16 09/08/16 09/08/16 06:18 06:51 10:55 WBC RBC Hgb Hct MCV MCH MCHC RDW Plt Count Lymph % (Auto) [place] % (Auto) Lymph # [place] # Baso # Seg Neutrophils % Seg Neuts % (Manual) Lymphocytes % (Manual) Monocytes % (Manual) Eosinophils % (Manual) Basophils % (Manual) Nucleated RBC % Seg Neutrophils # Seg Neutrophils # Man Lymphocytes # (Manual) Monocytes # (Manual) Eosinophils # (Manual) Basophils # (Manual) PT INR Fibrinogen dRVVT Confirm Interp Factor V Activity POC ABG pH POC ABG pCO2 POC ABG pO2 ABG pO2 ABG HCO3 ABG Base Excess ABG Hemoglobin Oxyhemoglobin Sodium 133 L Potassium Chloride 96.9 L Carbon Dioxide 20 L BUN 63 H Creatinine 2.7 H Glucose 195 H POC Glucose 204 H 169 H Lactic Acid Calcium Phosphorus Magnesium Direct Bilirubin AST ALT Alkaline Phosphatase Lactate Dehydrogenase Troponin T C-Reactive Protein Total Protein Albumin Prealbumin Triglycerides Cholesterol LDL Cholesterol Direct HDL Cholesterol Urine pH Urine WBC (Auto) Urine Creatinine Urine Total Protein Fluid Total Protein Vancomycin Trough Rheumatoid Factor Complement C4 Miscellaneous Test Crossmatch 09/08/16 09/08/16 09/08/16 11:48 11:48 11:48 WBC RBC Hgb Hct MCV MCH MCHC RDW Plt Count Lymph % (Auto) [place] % (Auto) Lymph # [place] # Baso # Seg Neutrophils % Seg Neuts % (Manual) Lymphocytes % (Manual) Monocytes % (Manual) Eosinophils % (Manual) Basophils % (Manual) Nucleated RBC % Seg Neutrophils # Seg Neutrophils # Man Lymphocytes # (Manual) Monocytes # (Manual) Eosinophils # (Manual) Basophils # (Manual) PT INR Fibrinogen 750 H dRVVT Confirm Interp Factor V Activity POC ABG pH POC ABG pCO2 POC ABG pO2 ABG pO2 ABG HCO3 ABG Base Excess ABG Hemoglobin Oxyhemoglobin Sodium Potassium Chloride Carbon Dioxide BUN Creatinine Glucose POC Glucose Lactic Acid Calcium Phosphorus Magnesium Direct Bilirubin AST ALT Alkaline Phosphatase Lactate Dehydrogenase Troponin T C-Reactive Protein 15.70 H Total Protein Albumin Prealbumin Triglycerides Cholesterol LDL Cholesterol Direct HDL Cholesterol Urine pH Urine WBC (Auto) Urine Creatinine Urine Total Protein Fluid Total Protein Vancomycin Trough Rheumatoid Factor 24 H Complement C4 Miscellaneous Test Crossmatch 09/08/16 09/08/16 09/09/16 15:35 18:25 00:24 WBC RBC Hgb Hct MCV MCH MCHC RDW Plt Count Lymph % (Auto) [place] % (Auto) Lymph # [place] # Baso # Seg Neutrophils % Seg Neuts % (Manual) Lymphocytes % (Manual) Monocytes % (Manual) Eosinophils % (Manual) Basophils % (Manual) Nucleated RBC % Seg Neutrophils # Seg Neutrophils # Man Lymphocytes # (Manual) Monocytes # (Manual) Eosinophils # (Manual) Basophils # (Manual) PT INR Fibrinogen dRVVT Confirm Interp Factor V Activity 182 H POC ABG pH POC ABG pCO2 POC ABG pO2 ABG pO2 ABG HCO3 ABG Base Excess ABG Hemoglobin Oxyhemoglobin Sodium Potassium Chloride Carbon Dioxide BUN Creatinine Glucose POC Glucose 184 H 216 H Lactic Acid Calcium Phosphorus Magnesium Direct Bilirubin AST ALT Alkaline Phosphatase Lactate Dehydrogenase Troponin T C-Reactive Protein Total Protein Albumin Prealbumin Triglycerides Cholesterol LDL Cholesterol Direct HDL Cholesterol Urine pH Urine WBC (Auto) Urine Creatinine Urine Total Protein Fluid Total Protein Vancomycin Trough Rheumatoid Factor Complement C4 Miscellaneous Test Crossmatch 09/09/16 09/09/16 09/09/16 03:00 03:00 04:04 WBC 27.9 H RBC Hgb 8.7 L Hct 28.1 L MCV 72 L MCH 22 L MCHC RDW 18.4 H Plt Count 485 H Lymph % (Auto) [place] % (Auto) Lymph # [place] # Baso # Seg Neutrophils % Seg Neuts % (Manual) 77.0 H Lymphocytes % (Manual) 9.0 L Monocytes % (Manual) Eosinophils % (Manual) Basophils % (Manual) Nucleated RBC % Seg Neutrophils # Seg Neutrophils # Man 21.5 H Lymphocytes # (Manual) Monocytes # (Manual) 2.0 H Eosinophils # (Manual) Basophils # (Manual) PT INR Fibrinogen dRVVT Confirm Interp Factor V Activity POC ABG pH POC ABG pCO2 POC ABG pO2 121 H ABG pO2 ABG HCO3 ABG Base Excess ABG Hemoglobin Oxyhemoglobin Sodium 135 L Potassium Chloride 96.3 L Carbon Dioxide 21 L BUN 83 H Creatinine 3.0 H Glucose 135 H POC Glucose Lactic Acid Calcium Phosphorus Magnesium Direct Bilirubin AST ALT Alkaline Phosphatase Lactate Dehydrogenase Troponin T C-Reactive Protein Total Protein Albumin Prealbumin Triglycerides Cholesterol LDL Cholesterol Direct HDL Cholesterol Urine pH Urine WBC (Auto) Urine Creatinine Urine Total Protein Fluid Total Protein Vancomycin Trough Rheumatoid Factor Complement C4 Miscellaneous Test Crossmatch 09/09/16 09/09/16 09/09/16 05:41 11:55 14:13 WBC RBC Hgb Hct MCV MCH MCHC RDW Plt Count Lymph % (Auto) [place] % (Auto) Lymph # [place] # Baso # Seg Neutrophils % Seg Neuts % (Manual) Lymphocytes % (Manual) Monocytes % (Manual) Eosinophils % (Manual) Basophils % (Manual) Nucleated RBC % Seg Neutrophils # Seg Neutrophils # Man Lymphocytes # (Manual) Monocytes # (Manual) Eosinophils # (Manual) Basophils # (Manual) PT INR Fibrinogen dRVVT Confirm Interp Factor V Activity POC ABG pH POC ABG pCO2 POC ABG pO2 ABG pO2 ABG HCO3 ABG Base Excess ABG Hemoglobin Oxyhemoglobin Sodium Potassium Chloride Carbon Dioxide BUN Creatinine Glucose POC Glucose 155 H 186 H Lactic Acid Calcium Phosphorus Magnesium Direct Bilirubin AST ALT Alkaline Phosphatase Lactate Dehydrogenase Troponin T C-Reactive Protein Total Protein Albumin Prealbumin Triglycerides Cholesterol LDL Cholesterol Direct HDL Cholesterol Urine pH Urine WBC (Auto) 25.0 H Urine Creatinine Urine Total Protein Fluid Total Protein Vancomycin Trough Rheumatoid Factor Complement C4 Miscellaneous Test Crossmatch 09/09/16 09/09/16 09/10/16 17:33 23:13 05:09 WBC RBC Hgb Hct MCV MCH MCHC RDW Plt Count Lymph % (Auto) [place] % (Auto) Lymph # [place] # Baso # Seg Neutrophils % Seg Neuts % (Manual) Lymphocytes % (Manual) Monocytes % (Manual) Eosinophils % (Manual) Basophils % (Manual) Nucleated RBC % Seg Neutrophils # Seg Neutrophils # Man Lymphocytes # (Manual) Monocytes # (Manual) Eosinophils # (Manual) Basophils # (Manual) PT INR Fibrinogen dRVVT Confirm Interp Factor V Activity POC ABG pH POC ABG pCO2 POC ABG pO2 74 L ABG pO2 ABG HCO3 ABG Base Excess ABG Hemoglobin Oxyhemoglobin Sodium Potassium Chloride Carbon Dioxide BUN Creatinine Glucose POC Glucose 211 H 215 H Lactic Acid Calcium Phosphorus Magnesium Direct Bilirubin AST ALT Alkaline Phosphatase Lactate Dehydrogenase Troponin T C-Reactive Protein Total Protein Albumin Prealbumin Triglycerides Cholesterol LDL Cholesterol Direct HDL Cholesterol Urine pH Urine WBC (Auto) Urine Creatinine Urine Total Protein Fluid Total Protein Vancomycin Trough Rheumatoid Factor Complement C4 Miscellaneous Test Crossmatch 09/10/16 09/10/16 09/10/16 05:17 05:17 11:31 WBC 15.8 H RBC 3.25 L Hgb 7.3 L Hct 22.9 L MCV 71 L MCH 23 L MCHC RDW 18.4 H Plt Count Lymph % (Auto) [place] % (Auto) Lymph # [place] # Baso # Seg Neutrophils % Seg Neuts % (Manual) 91.0 H Lymphocytes % (Manual) 4.0 L Monocytes % (Manual) Eosinophils % (Manual) Basophils % (Manual) Nucleated RBC % Seg Neutrophils # Seg Neutrophils # Man 14.4 H Lymphocytes # (Manual) 0.6 L Monocytes # (Manual) Eosinophils # (Manual) Basophils # (Manual) PT INR Fibrinogen dRVVT Confirm Interp Factor V Activity POC ABG pH POC ABG pCO2 POC ABG pO2 ABG pO2 ABG HCO3 ABG Base Excess ABG Hemoglobin Oxyhemoglobin Sodium Potassium Chloride Carbon Dioxide 21 L BUN 93 H Creatinine 2.9 H Glucose 146 H POC Glucose 188 H Lactic Acid Calcium 8.1 L Phosphorus Magnesium Direct Bilirubin AST ALT Alkaline Phosphatase Lactate Dehydrogenase Troponin T C-Reactive Protein Total Protein Albumin Prealbumin Triglycerides Cholesterol LDL Cholesterol Direct HDL Cholesterol Urine pH Urine WBC (Auto) Urine Creatinine Urine Total Protein Fluid Total Protein Vancomycin Trough Rheumatoid Factor Complement C4 Miscellaneous Test Crossmatch 09/10/16 09/10/16 09/10/16 13:17 17:20 23:32 WBC RBC Hgb Hct MCV MCH MCHC RDW Plt Count Lymph % (Auto) [place] % (Auto) Lymph # [place] # Baso # Seg Neutrophils % Seg Neuts % (Manual) Lymphocytes % (Manual) Monocytes % (Manual) Eosinophils % (Manual) Basophils % (Manual) Nucleated RBC % Seg Neutrophils # Seg Neutrophils # Man Lymphocytes # (Manual) Monocytes # (Manual) Eosinophils # (Manual) Basophils # (Manual) PT INR Fibrinogen dRVVT Confirm Interp Factor V Activity POC ABG pH POC ABG pCO2 POC ABG pO2 ABG pO2 ABG HCO3 ABG Base Excess ABG Hemoglobin Oxyhemoglobin Sodium Potassium Chloride Carbon Dioxide BUN Creatinine Glucose POC Glucose 199 H 186 H Lactic Acid Calcium Phosphorus Magnesium Direct Bilirubin AST ALT Alkaline Phosphatase Lactate Dehydrogenase Troponin T C-Reactive Protein Total Protein Albumin Prealbumin Triglycerides Cholesterol LDL Cholesterol Direct HDL Cholesterol Urine pH Urine WBC (Auto) Urine Creatinine Urine Total Protein Fluid Total Protein Vancomycin Trough Rheumatoid Factor Complement C4 Miscellaneous Test Crossmatch See Detail 09/11/16 09/11/16 09/11/16 05:10 05:10 05:17 WBC 28.4 H RBC Hgb 9.2 L Hct 29.3 L D MCV 73 L MCH 23 L MCHC RDW 18.9 H Plt Count 452 H Lymph % (Auto) [place] % (Auto) Lymph # [place] # Baso # Seg Neutrophils % Seg Neuts % (Manual) 89.5 H Lymphocytes % (Manual) 2.0 L Monocytes % (Manual) Eosinophils % (Manual) Basophils % (Manual) Nucleated RBC % Seg Neutrophils # Seg Neutrophils # Man 25.4 H Lymphocytes # (Manual) 0.6 L Monocytes # (Manual) 1.3 H Eosinophils # (Manual) Basophils # (Manual) PT INR Fibrinogen dRVVT Confirm Interp Factor V Activity POC ABG pH POC ABG pCO2 POC ABG pO2 ABG pO2 ABG HCO3 ABG Base Excess ABG Hemoglobin Oxyhemoglobin Sodium 136 L Potassium Chloride Carbon Dioxide 18 L BUN 107 H Creatinine 2.6 H Glucose 187 H POC Glucose 230 H Lactic Acid Calcium 8.3 L Phosphorus Magnesium Direct Bilirubin AST ALT Alkaline Phosphatase Lactate Dehydrogenase Troponin T C-Reactive Protein Total Protein Albumin Prealbumin Triglycerides Cholesterol LDL Cholesterol Direct HDL Cholesterol Urine pH Urine WBC (Auto) Urine Creatinine Urine Total Protein Fluid Total Protein Vancomycin Trough Rheumatoid Factor Complement C4 Miscellaneous Test Crossmatch 09/11/16 09/11/16 09/11/16 05:55 12:02 17:32 WBC RBC Hgb Hct MCV MCH MCHC RDW Plt Count Lymph % (Auto) [place] % (Auto) Lymph # [place] # Baso # Seg Neutrophils % Seg Neuts % (Manual) Lymphocytes % (Manual) Monocytes % (Manual) Eosinophils % (Manual) Basophils % (Manual) Nucleated RBC % Seg Neutrophils # Seg Neutrophils # Man Lymphocytes # (Manual) Monocytes # (Manual) Eosinophils # (Manual) Basophils # (Manual) PT INR Fibrinogen dRVVT Confirm Interp Factor V Activity POC ABG pH POC ABG pCO2 33.8 L POC ABG pO2 ABG pO2 ABG HCO3 ABG Base Excess ABG Hemoglobin Oxyhemoglobin Sodium Potassium Chloride Carbon Dioxide BUN Creatinine Glucose POC Glucose 191 H 239 H Lactic Acid Calcium Phosphorus Magnesium Direct Bilirubin AST ALT Alkaline Phosphatase Lactate Dehydrogenase Troponin T C-Reactive Protein Total Protein Albumin Prealbumin Triglycerides Cholesterol LDL Cholesterol Direct HDL Cholesterol Urine pH Urine WBC (Auto) Urine Creatinine Urine Total Protein Fluid Total Protein Vancomycin Trough Rheumatoid Factor Complement C4 Miscellaneous Test Crossmatch 09/11/16 09/12/16 09/12/16 23:52 05:09 05:32 WBC RBC Hgb Hct MCV MCH MCHC RDW Plt Count Lymph % (Auto) [place] % (Auto) Lymph # [place] # Baso # Seg Neutrophils % Seg Neuts % (Manual) Lymphocytes % (Manual) Monocytes % (Manual) Eosinophils % (Manual) Basophils % (Manual) Nucleated RBC % Seg Neutrophils # Seg Neutrophils # Man Lymphocytes # (Manual) Monocytes # (Manual) Eosinophils # (Manual) Basophils # (Manual) PT INR Fibrinogen dRVVT Confirm Interp Factor V Activity POC ABG pH POC ABG pCO2 34.6 L POC ABG pO2 ABG pO2 ABG HCO3 ABG Base Excess ABG Hemoglobin Oxyhemoglobin Sodium Potassium Chloride Carbon Dioxide BUN Creatinine Glucose POC Glucose 265 H 184 H Lactic Acid Calcium Phosphorus Magnesium Direct Bilirubin AST ALT Alkaline Phosphatase Lactate Dehydrogenase Troponin T C-Reactive Protein Total Protein Albumin Prealbumin Triglycerides Cholesterol LDL Cholesterol Direct HDL Cholesterol Urine pH Urine WBC (Auto) Urine Creatinine Urine Total Protein Fluid Total Protein Vancomycin Trough Rheumatoid Factor Complement C4 Miscellaneous Test Crossmatch 09/12/16 09/12/16 09/12/16 06:45 06:45 07:22 WBC 31.7 H RBC 3.54 L Hgb 8.3 L Hct 25.9 L MCV 73 L MCH 23 L MCHC RDW 18.9 H Plt Count Lymph % (Auto) [place] % (Auto) Lymph # [place] # Baso # Seg Neutrophils % Seg Neuts % (Manual) 88.5 H Lymphocytes % (Manual) 4.5 L Monocytes % (Manual) Eosinophils % (Manual) Basophils % (Manual) Nucleated RBC % Seg Neutrophils # Seg Neutrophils # Man 28.1 H Lymphocytes # (Manual) Monocytes # (Manual) 1.0 H Eosinophils # (Manual) Basophils # (Manual) PT INR Fibrinogen dRVVT Confirm Interp Factor V Activity POC ABG pH POC ABG pCO2 POC ABG pO2 ABG pO2 ABG HCO3 ABG Base Excess ABG Hemoglobin Oxyhemoglobin Sodium Potassium Chloride Carbon Dioxide 20 L BUN 115 H Creatinine 2.7 H Glucose 165 H POC Glucose Lactic Acid Calcium 8.0 L Phosphorus Magnesium Direct Bilirubin AST ALT Alkaline Phosphatase Lactate Dehydrogenase Troponin T C-Reactive Protein Total Protein Albumin Prealbumin Triglycerides 217 H Cholesterol LDL Cholesterol Direct HDL Cholesterol Urine pH Urine WBC (Auto) Urine Creatinine Urine Total Protein Fluid Total Protein Vancomycin Trough Rheumatoid Factor Complement C4 Miscellaneous Test Crossmatch 09/12/16 09/12/16 09/12/16 07:22 09:59 12:21 WBC RBC Hgb Hct MCV MCH MCHC RDW Plt Count Lymph % (Auto) [place] % (Auto) Lymph # [place] # Baso # Seg Neutrophils % Seg Neuts % (Manual) Lymphocytes % (Manual) Monocytes % (Manual) Eosinophils % (Manual) Basophils % (Manual) Nucleated RBC % Seg Neutrophils # Seg Neutrophils # Man Lymphocytes # (Manual) Monocytes # (Manual) Eosinophils # (Manual) Basophils # (Manual) PT INR Fibrinogen dRVVT Confirm Interp Positive H Factor V Activity POC ABG pH POC ABG pCO2 POC ABG pO2 ABG pO2 ABG HCO3 ABG Base Excess ABG Hemoglobin Oxyhemoglobin Sodium Potassium Chloride Carbon Dioxide BUN Creatinine Glucose POC Glucose 224 H Lactic Acid Calcium Phosphorus Magnesium Direct Bilirubin AST ALT Alkaline Phosphatase Lactate Dehydrogenase Troponin T C-Reactive Protein 1.70 H Total Protein Albumin Prealbumin Triglycerides Cholesterol LDL Cholesterol Direct HDL Cholesterol Urine pH Urine WBC (Auto) Urine Creatinine Urine Total Protein Fluid Total Protein Vancomycin Trough Rheumatoid Factor Complement C4 Miscellaneous Test Crossmatch 09/12/16 09/12/16 09/13/16 16:51 23:28 04:00 WBC 45.0 H* RBC Hgb 9.4 L Hct MCV 75 L MCH 23 L MCHC RDW 19.0 H Plt Count 470 H Lymph % (Auto) [place] % (Auto) Lymph # [place] # Baso # Seg Neutrophils % Seg Neuts % (Manual) 89.0 H Lymphocytes % (Manual) 5.0 L Monocytes % (Manual) Eosinophils % (Manual) Basophils % (Manual) Nucleated RBC % Seg Neutrophils # Seg Neutrophils # Man 40.1 H Lymphocytes # (Manual) Monocytes # (Manual) Eosinophils # (Manual) Basophils # (Manual) PT INR Fibrinogen dRVVT Confirm Interp Factor V Activity POC ABG pH POC ABG pCO2 POC ABG pO2 ABG pO2 ABG HCO3 ABG Base Excess ABG Hemoglobin Oxyhemoglobin Sodium Potassium Chloride Carbon Dioxide BUN Creatinine Glucose POC Glucose 169 H 150 H Lactic Acid Calcium Phosphorus Magnesium Direct Bilirubin AST ALT Alkaline Phosphatase Lactate Dehydrogenase Troponin T C-Reactive Protein Total Protein Albumin Prealbumin Triglycerides Cholesterol LDL Cholesterol Direct HDL Cholesterol Urine pH Urine WBC (Auto) Urine Creatinine Urine Total Protein Fluid Total Protein Vancomycin Trough Rheumatoid Factor Complement C4 Miscellaneous Test Crossmatch 09/13/16 09/13/16 09/13/16 04:00 11:26 17:31 WBC RBC Hgb Hct MCV MCH MCHC RDW Plt Count Lymph % (Auto) [place] % (Auto) Lymph # [place] # Baso # Seg Neutrophils % Seg Neuts % (Manual) Lymphocytes % (Manual) Monocytes % (Manual) Eosinophils % (Manual) Basophils % (Manual) Nucleated RBC % Seg Neutrophils # Seg Neutrophils # Man Lymphocytes # (Manual) Monocytes # (Manual) Eosinophils # (Manual) Basophils # (Manual) PT INR Fibrinogen dRVVT Confirm Interp Factor V Activity POC ABG pH POC ABG pCO2 POC ABG pO2 ABG pO2 ABG HCO3 ABG Base Excess ABG Hemoglobin Oxyhemoglobin Sodium Potassium Chloride Carbon Dioxide 20 L BUN 116 H Creatinine 3.0 H Glucose 172 H POC Glucose 140 H 183 H Lactic Acid Calcium Phosphorus Magnesium Direct Bilirubin AST ALT Alkaline Phosphatase Lactate Dehydrogenase Troponin T C-Reactive Protein Total Protein 6.2 L Albumin 2.9 L Prealbumin Triglycerides Cholesterol LDL Cholesterol Direct HDL Cholesterol Urine pH Urine WBC (Auto) Urine Creatinine Urine Total Protein Fluid Total Protein Vancomycin Trough Rheumatoid Factor Complement C4 Miscellaneous Test Crossmatch 09/13/16 09/14/16 09/14/16 23:23 04:06 04:07 WBC 29.4 H RBC Hgb 8.9 L Hct 27.3 L MCV 75 L MCH 24 L MCHC RDW 19.1 H Plt Count Lymph % (Auto) [place] % (Auto) Lymph # [place] # Baso # Seg Neutrophils % Seg Neuts % (Manual) 84.0 H Lymphocytes % (Manual) 6.0 L Monocytes % (Manual) 9.0 H Eosinophils % (Manual) Basophils % (Manual) Nucleated RBC % Seg Neutrophils # Seg Neutrophils # Man 24.7 H Lymphocytes # (Manual) Monocytes # (Manual) 2.6 H Eosinophils # (Manual) Basophils # (Manual) PT INR Fibrinogen dRVVT Confirm Interp Factor V Activity POC ABG pH 7.342 L POC ABG pCO2 POC ABG pO2 116 H ABG pO2 ABG HCO3 ABG Base Excess ABG Hemoglobin Oxyhemoglobin Sodium Potassium Chloride Carbon Dioxide BUN Creatinine Glucose POC Glucose 154 H Lactic Acid Calcium Phosphorus Magnesium Direct Bilirubin AST ALT Alkaline Phosphatase Lactate Dehydrogenase Troponin T C-Reactive Protein Total Protein Albumin Prealbumin Triglycerides Cholesterol LDL Cholesterol Direct HDL Cholesterol Urine pH Urine WBC (Auto) Urine Creatinine Urine Total Protein Fluid Total Protein Vancomycin Trough Rheumatoid Factor Complement C4 Miscellaneous Test Crossmatch 09/14/16 09/14/16 09/14/16 04:07 05:29 12:19 WBC RBC Hgb Hct MCV MCH MCHC RDW Plt Count Lymph % (Auto) [place] % (Auto) Lymph # [place] # Baso # Seg Neutrophils % Seg Neuts % (Manual) Lymphocytes % (Manual) Monocytes % (Manual) Eosinophils % (Manual) Basophils % (Manual) Nucleated RBC % Seg Neutrophils # Seg Neutrophils # Man Lymphocytes # (Manual) Monocytes # (Manual) Eosinophils # (Manual) Basophils # (Manual) PT INR Fibrinogen dRVVT Confirm Interp Factor V Activity POC ABG pH POC ABG pCO2 POC ABG pO2 ABG pO2 ABG HCO3 ABG Base Excess ABG Hemoglobin Oxyhemoglobin Sodium 136 L Potassium Chloride Carbon Dioxide 18 L BUN 121 H Creatinine 2.8 H Glucose 214 H POC Glucose 239 H 181 H Lactic Acid Calcium Phosphorus Magnesium Direct Bilirubin AST ALT Alkaline Phosphatase Lactate Dehydrogenase Troponin T C-Reactive Protein Total Protein Albumin Prealbumin Triglycerides Cholesterol LDL Cholesterol Direct HDL Cholesterol Urine pH Urine WBC (Auto) Urine Creatinine Urine Total Protein Fluid Total Protein Vancomycin Trough Rheumatoid Factor Complement C4 Miscellaneous Test Crossmatch 09/14/16 09/14/16 09/15/16 18:12 23:37 05:00 WBC 26.1 H RBC 3.05 L Hgb 7.2 L Hct 22.9 L MCV 75 L MCH 24 L MCHC RDW 19.0 H Plt Count Lymph % (Auto) [place] % (Auto) Lymph # [place] # Baso # Seg Neutrophils % Seg Neuts % (Manual) Lymphocytes % (Manual) Monocytes % (Manual) Eosinophils % (Manual) Basophils % (Manual) Nucleated RBC % Seg Neutrophils # Seg Neutrophils # Man Lymphocytes # (Manual) Monocytes # (Manual) Eosinophils # (Manual) Basophils # (Manual) PT INR Fibrinogen dRVVT Confirm Interp Factor V Activity POC ABG pH POC ABG pCO2 POC ABG pO2 ABG pO2 ABG HCO3 ABG Base Excess ABG Hemoglobin Oxyhemoglobin Sodium Potassium Chloride Carbon Dioxide BUN Creatinine Glucose POC Glucose 266 H 154 H Lactic Acid Calcium Phosphorus Magnesium Direct Bilirubin AST ALT Alkaline Phosphatase Lactate Dehydrogenase Troponin T C-Reactive Protein Total Protein Albumin Prealbumin Triglycerides Cholesterol LDL Cholesterol Direct HDL Cholesterol Urine pH Urine WBC (Auto) Urine Creatinine Urine Total Protein Fluid Total Protein Vancomycin Trough Rheumatoid Factor Complement C4 Miscellaneous Test Crossmatch 09/15/16 09/15/16 09/15/16 05:00 05:17 12:45 WBC RBC Hgb Hct MCV MCH MCHC RDW Plt Count Lymph % (Auto) [place] % (Auto) Lymph # [place] # Baso # Seg Neutrophils % Seg Neuts % (Manual) Lymphocytes % (Manual) Monocytes % (Manual) Eosinophils % (Manual) Basophils % (Manual) Nucleated RBC % Seg Neutrophils # Seg Neutrophils # Man Lymphocytes # (Manual) Monocytes # (Manual) Eosinophils # (Manual) Basophils # (Manual) PT INR Fibrinogen dRVVT Confirm Interp Factor V Activity POC ABG pH POC ABG pCO2 POC ABG pO2 ABG pO2 ABG HCO3 ABG Base Excess ABG Hemoglobin Oxyhemoglobin Sodium Potassium 5.2 H Chloride Carbon Dioxide 18 L BUN 139 H Creatinine 3.7 H Glucose 227 H POC Glucose 226 H 244 H Lactic Acid Calcium 8.3 L Phosphorus Magnesium Direct Bilirubin AST ALT Alkaline Phosphatase Lactate Dehydrogenase Troponin T C-Reactive Protein Total Protein Albumin Prealbumin Triglycerides Cholesterol LDL Cholesterol Direct HDL Cholesterol Urine pH Urine WBC (Auto) Urine Creatinine Urine Total Protein Fluid Total Protein Vancomycin Trough Rheumatoid Factor Complement C4 Miscellaneous Test Crossmatch 09/15/16 09/15/16 09/15/16 14:32 17:33 23:35 WBC RBC Hgb Hct MCV MCH MCHC RDW Plt Count Lymph % (Auto) [place] % (Auto) Lymph # [place] # Baso # Seg Neutrophils % Seg Neuts % (Manual) Lymphocytes % (Manual) Monocytes % (Manual) Eosinophils % (Manual) Basophils % (Manual) Nucleated RBC % Seg Neutrophils # Seg Neutrophils # Man Lymphocytes # (Manual) Monocytes # (Manual) Eosinophils # (Manual) Basophils # (Manual) PT INR Fibrinogen dRVVT Confirm Interp Factor V Activity POC ABG pH POC ABG pCO2 27.7 L POC ABG pO2 120 H ABG pO2 ABG HCO3 ABG Base Excess ABG Hemoglobin Oxyhemoglobin Sodium Potassium Chloride Carbon Dioxide BUN Creatinine Glucose POC Glucose 232 H 167 H Lactic Acid Calcium Phosphorus Magnesium Direct Bilirubin AST ALT Alkaline Phosphatase Lactate Dehydrogenase Troponin T C-Reactive Protein Total Protein Albumin Prealbumin Triglycerides Cholesterol LDL Cholesterol Direct HDL Cholesterol Urine pH Urine WBC (Auto) Urine Creatinine Urine Total Protein Fluid Total Protein Vancomycin Trough Rheumatoid Factor Complement C4 Miscellaneous Test Crossmatch 09/16/16 09/16/16 09/16/16 03:58 10:27 10:27 WBC 19.0 H RBC 2.77 L Hgb 6.5 L Hct 20.9 L MCV 76 L MCH 23 L MCHC RDW 19.3 H Plt Count Lymph % (Auto) 11.0 L [place] % (Auto) Lymph # [place] # 1.1 H Baso # Seg Neutrophils % 82.5 H Seg Neuts % (Manual) Lymphocytes % (Manual) Monocytes % (Manual) Eosinophils % (Manual) Basophils % (Manual) Nucleated RBC % Seg Neutrophils # 15.7 H Seg Neutrophils # Man Lymphocytes # (Manual) Monocytes # (Manual) Eosinophils # (Manual) Basophils # (Manual) PT INR Fibrinogen dRVVT Confirm Interp Factor V Activity POC ABG pH POC ABG pCO2 POC ABG pO2 ABG pO2 ABG HCO3 ABG Base Excess ABG Hemoglobin Oxyhemoglobin Sodium Potassium Chloride 109.3 H Carbon Dioxide 18 L BUN 139 H Creatinine 4.1 H Glucose 144 H POC Glucose 146 H Lactic Acid Calcium 8.1 L Phosphorus Magnesium Direct Bilirubin AST ALT Alkaline Phosphatase Lactate Dehydrogenase Troponin T C-Reactive Protein Total Protein Albumin Prealbumin Triglycerides Cholesterol LDL Cholesterol Direct HDL Cholesterol Urine pH Urine WBC (Auto) Urine Creatinine Urine Total Protein Fluid Total Protein Vancomycin Trough Rheumatoid Factor Complement C4 Miscellaneous Test Crossmatch 09/16/16 09/16/16 09/16/16 12:04 12:10 13:55 WBC RBC Hgb Hct MCV MCH MCHC RDW Plt Count Lymph % (Auto) [place] % (Auto) Lymph # [place] # Baso # Seg Neutrophils % Seg Neuts % (Manual) Lymphocytes % (Manual) Monocytes % (Manual) Eosinophils % (Manual) Basophils % (Manual) Nucleated RBC % Seg Neutrophils # Seg Neutrophils # Man Lymphocytes # (Manual) Monocytes # (Manual) Eosinophils # (Manual) Basophils # (Manual) PT INR Fibrinogen dRVVT Confirm Interp Factor V Activity POC ABG pH POC ABG pCO2 32.9 L POC ABG pO2 ABG pO2 ABG HCO3 ABG Base Excess ABG Hemoglobin Oxyhemoglobin Sodium Potassium Chloride Carbon Dioxide BUN Creatinine Glucose POC Glucose 185 H Lactic Acid Calcium Phosphorus Magnesium Direct Bilirubin AST ALT Alkaline Phosphatase Lactate Dehydrogenase Troponin T C-Reactive Protein Total Protein Albumin Prealbumin Triglycerides Cholesterol LDL Cholesterol Direct HDL Cholesterol Urine pH Urine WBC (Auto) Urine Creatinine Urine Total Protein Fluid Total Protein Vancomycin Trough Rheumatoid Factor Complement C4 Miscellaneous Test Crossmatch See Detail 09/16/16 09/16/16 09/16/16 17:55 19:19 23:48 WBC RBC Hgb Hct MCV MCH MCHC RDW Plt Count Lymph % (Auto) [place] % (Auto) Lymph # [place] # Baso # Seg Neutrophils % Seg Neuts % (Manual) Lymphocytes % (Manual) Monocytes % (Manual) Eosinophils % (Manual) Basophils % (Manual) Nucleated RBC % Seg Neutrophils # Seg Neutrophils # Man Lymphocytes # (Manual) Monocytes # (Manual) Eosinophils # (Manual) Basophils # (Manual) PT INR Fibrinogen dRVVT Confirm Interp Factor V Activity POC ABG pH POC ABG pCO2 POC ABG pO2 ABG pO2 ABG HCO3 ABG Base Excess ABG Hemoglobin Oxyhemoglobin Sodium Potassium Chloride Carbon Dioxide BUN Creatinine Glucose POC Glucose 222 H 107 H Lactic Acid Calcium Phosphorus Magnesium Direct Bilirubin AST ALT Alkaline Phosphatase Lactate Dehydrogenase Troponin T C-Reactive Protein Total Protein Albumin Prealbumin Triglycerides Cholesterol LDL Cholesterol Direct HDL Cholesterol Urine pH Urine WBC (Auto) Urine Creatinine 47.4 H Urine Total Protein 16 H Fluid Total Protein Vancomycin Trough Rheumatoid Factor Complement C4 Miscellaneous Test Crossmatch 09/17/16 09/17/16 09/17/16 03:45 03:45 04:55 WBC 19.6 H RBC 3.41 L Hgb 8.5 L Hct 26.7 L MCV 78 L MCH 25 L MCHC RDW 19.9 H Plt Count Lymph % (Auto) 9.3 L [place] % (Auto) Lymph # [place] # 1.2 H Baso # Seg Neutrophils % 83.9 H Seg Neuts % (Manual) Lymphocytes % (Manual) Monocytes % (Manual) Eosinophils % (Manual) Basophils % (Manual) Nucleated RBC % Seg Neutrophils # 16.4 H Seg Neutrophils # Man Lymphocytes # (Manual) Monocytes # (Manual) Eosinophils # (Manual) Basophils # (Manual) PT INR Fibrinogen dRVVT Confirm Interp Factor V Activity POC ABG pH POC ABG pCO2 POC ABG pO2 ABG pO2 ABG HCO3 ABG Base Excess ABG Hemoglobin Oxyhemoglobin Sodium 146 H Potassium 5.1 H Chloride 110.9 H Carbon Dioxide 16 L BUN 146 H Creatinine 4.0 H Glucose 108 H POC Glucose 133 H Lactic Acid Calcium Phosphorus Magnesium 3.00 H Direct Bilirubin AST ALT Alkaline Phosphatase Lactate Dehydrogenase Troponin T C-Reactive Protein Total Protein Albumin Prealbumin Triglycerides Cholesterol LDL Cholesterol Direct HDL Cholesterol Urine pH Urine WBC (Auto) Urine Creatinine Urine Total Protein Fluid Total Protein Vancomycin Trough Rheumatoid Factor Complement C4 Miscellaneous Test Crossmatch 09/17/16 09/17/16 09/17/16 11:15 17:33 23:47 WBC RBC Hgb Hct MCV MCH MCHC RDW Plt Count Lymph % (Auto) [place] % (Auto) Lymph # [place] # Baso # Seg Neutrophils % Seg Neuts % (Manual) Lymphocytes % (Manual) Monocytes % (Manual) Eosinophils % (Manual) Basophils % (Manual) Nucleated RBC % Seg Neutrophils # Seg Neutrophils # Man Lymphocytes # (Manual) Monocytes # (Manual) Eosinophils # (Manual) Basophils # (Manual) PT INR Fibrinogen dRVVT Confirm Interp Factor V Activity POC ABG pH POC ABG pCO2 POC ABG pO2 ABG pO2 ABG HCO3 ABG Base Excess ABG Hemoglobin Oxyhemoglobin Sodium Potassium Chloride Carbon Dioxide BUN Creatinine Glucose POC Glucose 176 H 246 H 148 H Lactic Acid Calcium Phosphorus Magnesium Direct Bilirubin AST ALT Alkaline Phosphatase Lactate Dehydrogenase Troponin T C-Reactive Protein Total Protein Albumin Prealbumin Triglycerides Cholesterol LDL Cholesterol Direct HDL Cholesterol Urine pH Urine WBC (Auto) Urine Creatinine Urine Total Protein Fluid Total Protein Vancomycin Trough Rheumatoid Factor Complement C4 Miscellaneous Test Crossmatch 09/18/16 09/18/16 09/18/16 05:33 08:31 08:31 WBC 18.0 H RBC 3.17 L Hgb 9.0 L Hct 25.7 L MCV MCH MCHC 35 H RDW 20.4 H Plt Count Lymph % (Auto) [place] % (Auto) Lymph # [place] # Baso # Seg Neutrophils % Seg Neuts % (Manual) Lymphocytes % (Manual) Monocytes % (Manual) Eosinophils % (Manual) Basophils % (Manual) Nucleated RBC % Seg Neutrophils # Seg Neutrophils # Man Lymphocytes # (Manual) Monocytes # (Manual) Eosinophils # (Manual) Basophils # (Manual) PT INR Fibrinogen dRVVT Confirm Interp Factor V Activity POC ABG pH POC ABG pCO2 POC ABG pO2 ABG pO2 ABG HCO3 ABG Base Excess ABG Hemoglobin Oxyhemoglobin Sodium Potassium Chloride Carbon Dioxide 15 L BUN 124 H Creatinine 3.8 H Glucose POC Glucose 120 H Lactic Acid Calcium 8.1 L Phosphorus Magnesium Direct Bilirubin AST ALT Alkaline Phosphatase Lactate Dehydrogenase Troponin T C-Reactive Protein Total Protein Albumin Prealbumin Triglycerides Cholesterol LDL Cholesterol Direct HDL Cholesterol Urine pH Urine WBC (Auto) Urine Creatinine Urine Total Protein Fluid Total Protein Vancomycin Trough Rheumatoid Factor Complement C4 Miscellaneous Test Crossmatch 09/18/16 09/18/16 09/18/16 12:03 15:34 17:50 WBC RBC Hgb Hct MCV MCH MCHC RDW Plt Count Lymph % (Auto) [place] % (Auto) Lymph # [place] # Baso # Seg Neutrophils % Seg Neuts % (Manual) Lymphocytes % (Manual) Monocytes % (Manual) Eosinophils % (Manual) Basophils % (Manual) Nucleated RBC % Seg Neutrophils # Seg Neutrophils # Man Lymphocytes # (Manual) Monocytes # (Manual) Eosinophils # (Manual) Basophils # (Manual) PT INR Fibrinogen dRVVT Confirm Interp Factor V Activity POC ABG pH POC ABG pCO2 25.7 L POC ABG pO2 66 L ABG pO2 ABG HCO3 ABG Base Excess ABG Hemoglobin Oxyhemoglobin Sodium Potassium Chloride Carbon Dioxide BUN Creatinine Glucose POC Glucose 156 H 220 H Lactic Acid Calcium Phosphorus Magnesium Direct Bilirubin AST ALT Alkaline Phosphatase Lactate Dehydrogenase Troponin T C-Reactive Protein Total Protein Albumin Prealbumin Triglycerides Cholesterol LDL Cholesterol Direct HDL Cholesterol Urine pH Urine WBC (Auto) Urine Creatinine Urine Total Protein Fluid Total Protein Vancomycin Trough Rheumatoid Factor Complement C4 Miscellaneous Test Crossmatch 09/19/16 09/19/16 09/19/16 06:21 09:50 09:50 WBC 17.1 H RBC 3.49 L Hgb 9.0 L Hct 28.1 L MCV MCH 26 L MCHC RDW 20.8 H Plt Count Lymph % (Auto) 11.5 L [place] % (Auto) 7.5 H Lymph # [place] # 1.3 H Baso # Seg Neutrophils % 79.8 H Seg Neuts % (Manual) Lymphocytes % (Manual) Monocytes % (Manual) Eosinophils % (Manual) Basophils % (Manual) Nucleated RBC % Seg Neutrophils # 13.7 H Seg Neutrophils # Man Lymphocytes # (Manual) Monocytes # (Manual) Eosinophils # (Manual) Basophils # (Manual) PT INR Fibrinogen dRVVT Confirm Interp Factor V Activity POC ABG pH POC ABG pCO2 POC ABG pO2 ABG pO2 ABG HCO3 ABG Base Excess ABG Hemoglobin Oxyhemoglobin Sodium Potassium Chloride 108.6 H Carbon Dioxide 15 L BUN 125 H Creatinine 4.1 H Glucose 124 H POC Glucose 119 H Lactic Acid Calcium Phosphorus Magnesium Direct Bilirubin AST ALT Alkaline Phosphatase Lactate Dehydrogenase Troponin T C-Reactive Protein Total Protein Albumin Prealbumin Triglycerides Cholesterol LDL Cholesterol Direct HDL Cholesterol Urine pH Urine WBC (Auto) Urine Creatinine Urine Total Protein Fluid Total Protein Vancomycin Trough Rheumatoid Factor Complement C4 Miscellaneous Test Crossmatch 09/19/16 09/19/16 09/19/16 11:25 17:53 23:36 WBC RBC Hgb Hct MCV MCH MCHC RDW Plt Count Lymph % (Auto) [place] % (Auto) Lymph # [place] # Baso # Seg Neutrophils % Seg Neuts % (Manual) Lymphocytes % (Manual) Monocytes % (Manual) Eosinophils % (Manual) Basophils % (Manual) Nucleated RBC % Seg Neutrophils # Seg Neutrophils # Man Lymphocytes # (Manual) Monocytes # (Manual) Eosinophils # (Manual) Basophils # (Manual) PT INR Fibrinogen dRVVT Confirm Interp Factor V Activity POC ABG pH POC ABG pCO2 POC ABG pO2 ABG pO2 ABG HCO3 ABG Base Excess ABG Hemoglobin Oxyhemoglobin Sodium Potassium Chloride Carbon Dioxide BUN Creatinine Glucose POC Glucose 160 H 245 H 121 H Lactic Acid Calcium Phosphorus Magnesium Direct Bilirubin AST ALT Alkaline Phosphatase Lactate Dehydrogenase Troponin T C-Reactive Protein Total Protein Albumin Prealbumin Triglycerides Cholesterol LDL Cholesterol Direct HDL Cholesterol Urine pH Urine WBC (Auto) Urine Creatinine Urine Total Protein Fluid Total Protein Vancomycin Trough Rheumatoid Factor Complement C4 Miscellaneous Test Crossmatch 09/20/16 09/20/16 09/20/16 04:10 04:10 04:10 WBC 17.0 H RBC 3.21 L Hgb 8.2 L Hct 25.5 L MCV MCH 26 L MCHC RDW 20.9 H Plt Count Lymph % (Auto) [place] % (Auto) Lymph # [place] # Baso # Seg Neutrophils % Seg Neuts % (Manual) Lymphocytes % (Manual) Monocytes % (Manual) Eosinophils % (Manual) Basophils % (Manual) Nucleated RBC % Seg Neutrophils # Seg Neutrophils # Man Lymphocytes # (Manual) Monocytes # (Manual) Eosinophils # (Manual) Basophils # (Manual) PT INR Fibrinogen dRVVT Confirm Interp Factor V Activity POC ABG pH POC ABG pCO2 POC ABG pO2 ABG pO2 ABG HCO3 ABG Base Excess ABG Hemoglobin Oxyhemoglobin Sodium Potassium Chloride 111.0 H Carbon Dioxide 16 L BUN 129 H Creatinine 3.7 H Glucose 115 H POC Glucose Lactic Acid Calcium 8.2 L Phosphorus Magnesium Direct Bilirubin AST ALT Alkaline Phosphatase Lactate Dehydrogenase Troponin T C-Reactive Protein Total Protein Albumin Prealbumin Triglycerides 243 H Cholesterol LDL Cholesterol Direct HDL Cholesterol Urine pH Urine WBC (Auto) Urine Creatinine Urine Total Protein Fluid Total Protein Vancomycin Trough Rheumatoid Factor Complement C4 Miscellaneous Test Crossmatch 09/20/16 09/20/16 09/20/16 05:40 11:52 16:50 WBC RBC Hgb Hct MCV MCH MCHC RDW Plt Count Lymph % (Auto) [place] % (Auto) Lymph # [place] # Baso # Seg Neutrophils % Seg Neuts % (Manual) Lymphocytes % (Manual) Monocytes % (Manual) Eosinophils % (Manual) Basophils % (Manual) Nucleated RBC % Seg Neutrophils # Seg Neutrophils # Man Lymphocytes # (Manual) Monocytes # (Manual) Eosinophils # (Manual) Basophils # (Manual) PT INR Fibrinogen dRVVT Confirm Interp Factor V Activity POC ABG pH POC ABG pCO2 POC ABG pO2 ABG pO2 ABG HCO3 ABG Base Excess ABG Hemoglobin Oxyhemoglobin Sodium Potassium Chloride Carbon Dioxide BUN Creatinine Glucose POC Glucose 131 H 183 H 236 H Lactic Acid Calcium Phosphorus Magnesium Direct Bilirubin AST ALT Alkaline Phosphatase Lactate Dehydrogenase Troponin T C-Reactive Protein Total Protein Albumin Prealbumin Triglycerides Cholesterol LDL Cholesterol Direct HDL Cholesterol Urine pH Urine WBC (Auto) Urine Creatinine Urine Total Protein Fluid Total Protein Vancomycin Trough Rheumatoid Factor Complement C4 Miscellaneous Test Crossmatch 09/20/16 09/21/16 09/21/16 23:51 03:30 04:44 WBC RBC Hgb Hct MCV MCH MCHC RDW Plt Count Lymph % (Auto) [place] % (Auto) Lymph # [place] # Baso # Seg Neutrophils % Seg Neuts % (Manual) Lymphocytes % (Manual) Monocytes % (Manual) Eosinophils % (Manual) Basophils % (Manual) Nucleated RBC % Seg Neutrophils # Seg Neutrophils # Man Lymphocytes # (Manual) Monocytes # (Manual) Eosinophils # (Manual) Basophils # (Manual) PT INR Fibrinogen dRVVT Confirm Interp Factor V Activity POC ABG pH POC ABG pCO2 POC ABG pO2 ABG pO2 ABG HCO3 ABG Base Excess ABG Hemoglobin Oxyhemoglobin Sodium Potassium Chloride Carbon Dioxide BUN Creatinine Glucose POC Glucose 114 H 141 H Lactic Acid Calcium Phosphorus Magnesium 2.70 H Direct Bilirubin AST ALT Alkaline Phosphatase Lactate Dehydrogenase Troponin T C-Reactive Protein Total Protein Albumin Prealbumin Triglycerides Cholesterol LDL Cholesterol Direct HDL Cholesterol Urine pH Urine WBC (Auto) Urine Creatinine Urine Total Protein Fluid Total Protein Vancomycin Trough Rheumatoid Factor Complement C4 Miscellaneous Test Crossmatch 09/21/16 09/21/16 09/21/16 07:45 07:45 10:01 WBC 13.8 H RBC 2.94 L Hgb 7.5 L Hct 23.5 L MCV MCH 26 L MCHC RDW 21.2 H Plt Count Lymph % (Auto) 6.9 L [place] % (Auto) 9.4 H Lymph # 0.9 L [place] # 1.3 H Baso # Seg Neutrophils % 83.2 H Seg Neuts % (Manual) Lymphocytes % (Manual) Monocytes % (Manual) Eosinophils % (Manual) Basophils % (Manual) Nucleated RBC % Seg Neutrophils # 11.5 H Seg Neutrophils # Man Lymphocytes # (Manual) Monocytes # (Manual) Eosinophils # (Manual) Basophils # (Manual) PT INR Fibrinogen dRVVT Confirm Interp Factor V Activity POC ABG pH 7.308 L POC ABG pCO2 31.9 L POC ABG pO2 148 H ABG pO2 ABG HCO3 ABG Base Excess ABG Hemoglobin Oxyhemoglobin Sodium 147 H Potassium Chloride 114.2 H Carbon Dioxide 15 L BUN 120 H Creatinine 3.9 H Glucose 156 H POC Glucose Lactic Acid Calcium 8.2 L Phosphorus Magnesium Direct Bilirubin AST ALT Alkaline Phosphatase Lactate Dehydrogenase Troponin T C-Reactive Protein Total Protein Albumin Prealbumin Triglycerides Cholesterol LDL Cholesterol Direct HDL Cholesterol Urine pH Urine WBC (Auto) Urine Creatinine Urine Total Protein Fluid Total Protein Vancomycin Trough Rheumatoid Factor Complement C4 Miscellaneous Test Crossmatch 09/21/16 09/21/16 09/21/16 12:00 12:03 13:00 WBC RBC Hgb Hct MCV MCH MCHC RDW Plt Count Lymph % (Auto) [place] % (Auto) Lymph # [place] # Baso # Seg Neutrophils % Seg Neuts % (Manual) Lymphocytes % (Manual) Monocytes % (Manual) Eosinophils % (Manual) Basophils % (Manual) Nucleated RBC % Seg Neutrophils # Seg Neutrophils # Man Lymphocytes # (Manual) Monocytes # (Manual) Eosinophils # (Manual) Basophils # (Manual) PT INR Fibrinogen dRVVT Confirm Interp Factor V Activity POC ABG pH POC ABG pCO2 POC ABG pO2 ABG pO2 ABG HCO3 ABG Base Excess ABG Hemoglobin Oxyhemoglobin Sodium Potassium Chloride Carbon Dioxide BUN Creatinine Glucose POC Glucose 163 H Lactic Acid Calcium Phosphorus Magnesium Direct Bilirubin AST ALT Alkaline Phosphatase Lactate Dehydrogenase Troponin T C-Reactive Protein Total Protein Albumin Prealbumin Triglycerides Cholesterol LDL Cholesterol Direct HDL Cholesterol Urine pH Urine WBC (Auto) Urine Creatinine 54.8 H Urine Total Protein Fluid Total Protein Vancomycin Trough 2.3 L Rheumatoid Factor Complement C4 Miscellaneous Test Crossmatch 09/21/16 09/21/16 09/22/16 16:51 23:17 06:27 WBC RBC Hgb Hct MCV MCH MCHC RDW Plt Count Lymph % (Auto) [place] % (Auto) Lymph # [place] # Baso # Seg Neutrophils % Seg Neuts % (Manual) Lymphocytes % (Manual) Monocytes % (Manual) Eosinophils % (Manual) Basophils % (Manual) Nucleated RBC % Seg Neutrophils # Seg Neutrophils # Man Lymphocytes # (Manual) Monocytes # (Manual) Eosinophils # (Manual) Basophils # (Manual) PT INR Fibrinogen dRVVT Confirm Interp Factor V Activity POC ABG pH POC ABG pCO2 POC ABG pO2 ABG pO2 ABG HCO3 ABG Base Excess ABG Hemoglobin Oxyhemoglobin Sodium Potassium Chloride Carbon Dioxide BUN Creatinine Glucose POC Glucose 206 H 114 H 115 H Lactic Acid Calcium Phosphorus Magnesium Direct Bilirubin AST ALT Alkaline Phosphatase Lactate Dehydrogenase Troponin T C-Reactive Protein Total Protein Albumin Prealbumin Triglycerides Cholesterol LDL Cholesterol Direct HDL Cholesterol Urine pH Urine WBC (Auto) Urine Creatinine Urine Total Protein Fluid Total Protein Vancomycin Trough Rheumatoid Factor Complement C4 Miscellaneous Test Crossmatch 09/22/16 09/22/16 09/22/16 07:50 07:50 12:00 WBC 17.8 H RBC 3.04 L Hgb 8.0 L Hct 24.7 L MCV MCH 26 L MCHC RDW 21.6 H Plt Count Lymph % (Auto) [place] % (Auto) Lymph # [place] # Baso # Seg Neutrophils % Seg Neuts % (Manual) Lymphocytes % (Manual) Monocytes % (Manual) Eosinophils % (Manual) Basophils % (Manual) Nucleated RBC % Seg Neutrophils # Seg Neutrophils # Man Lymphocytes # (Manual) Monocytes # (Manual) Eosinophils # (Manual) Basophils # (Manual) PT INR Fibrinogen dRVVT Confirm Interp Factor V Activity POC ABG pH POC ABG pCO2 POC ABG pO2 ABG pO2 ABG HCO3 ABG Base Excess ABG Hemoglobin Oxyhemoglobin Sodium 150 H Potassium Chloride 118.2 H Carbon Dioxide 14 L BUN 111 H Creatinine 3.7 H Glucose 157 H POC Glucose 183 H Lactic Acid Calcium Phosphorus Magnesium Direct Bilirubin AST ALT Alkaline Phosphatase Lactate Dehydrogenase Troponin T C-Reactive Protein Total Protein Albumin Prealbumin Triglycerides Cholesterol LDL Cholesterol Direct HDL Cholesterol Urine pH Urine WBC (Auto) Urine Creatinine Urine Total Protein Fluid Total Protein Vancomycin Trough Rheumatoid Factor Complement C4 Miscellaneous Test Crossmatch 09/22/16 09/22/16 09/23/16 17:29 23:10 05:00 WBC 19.2 H RBC 3.13 L Hgb 8.0 L Hct 25.2 L MCV MCH 26 L MCHC RDW 22.1 H Plt Count Lymph % (Auto) [place] % (Auto) Lymph # [place] # Baso # Seg Neutrophils % Seg Neuts % (Manual) 92.0 H Lymphocytes % (Manual) 3.0 L Monocytes % (Manual) Eosinophils % (Manual) Basophils % (Manual) Nucleated RBC % Seg Neutrophils # Seg Neutrophils # Man 17.7 H Lymphocytes # (Manual) 0.6 L Monocytes # (Manual) Eosinophils # (Manual) Basophils # (Manual) PT INR Fibrinogen dRVVT Confirm Interp Factor V Activity POC ABG pH POC ABG pCO2 POC ABG pO2 ABG pO2 ABG HCO3 ABG Base Excess ABG Hemoglobin Oxyhemoglobin Sodium Potassium Chloride Carbon Dioxide BUN Creatinine Glucose POC Glucose 197 H 169 H Lactic Acid Calcium Phosphorus Magnesium Direct Bilirubin AST ALT Alkaline Phosphatase Lactate Dehydrogenase Troponin T C-Reactive Protein Total Protein Albumin Prealbumin Triglycerides Cholesterol LDL Cholesterol Direct HDL Cholesterol Urine pH Urine WBC (Auto) Urine Creatinine Urine Total Protein Fluid Total Protein Vancomycin Trough Rheumatoid Factor Complement C4 Miscellaneous Test Crossmatch 09/23/16 09/23/16 09/23/16 05:00 05:00 05:10 WBC RBC Hgb Hct MCV MCH MCHC RDW Plt Count Lymph % (Auto) [place] % (Auto) Lymph # [place] # Baso # Seg Neutrophils % Seg Neuts % (Manual) Lymphocytes % (Manual) Monocytes % (Manual) Eosinophils % (Manual) Basophils % (Manual) Nucleated RBC % Seg Neutrophils # Seg Neutrophils # Man Lymphocytes # (Manual) Monocytes # (Manual) Eosinophils # (Manual) Basophils # (Manual) PT INR Fibrinogen dRVVT Confirm Interp Factor V Activity POC ABG pH POC ABG pCO2 POC ABG pO2 ABG pO2 ABG HCO3 ABG Base Excess ABG Hemoglobin Oxyhemoglobin Sodium 147 H Potassium 3.2 L Chloride 115.7 H Carbon Dioxide 13 L BUN 111 H Creatinine 3.8 H Glucose 194 H POC Glucose 188 H Lactic Acid Calcium 7.3 L D Phosphorus Magnesium Direct Bilirubin AST ALT Alkaline Phosphatase Lactate Dehydrogenase Troponin T C-Reactive Protein 3.20 H Total Protein Albumin Prealbumin Triglycerides Cholesterol LDL Cholesterol Direct HDL Cholesterol Urine pH Urine WBC (Auto) Urine Creatinine Urine Total Protein Fluid Total Protein Vancomycin Trough Rheumatoid Factor Complement C4 Miscellaneous Test Crossmatch 09/23/16 09/23/16 09/23/16 11:37 12:29 18:01 WBC RBC Hgb Hct MCV MCH MCHC RDW Plt Count Lymph % (Auto) [place] % (Auto) Lymph # [place] # Baso # Seg Neutrophils % Seg Neuts % (Manual) Lymphocytes % (Manual) Monocytes % (Manual) Eosinophils % (Manual) Basophils % (Manual) Nucleated RBC % Seg Neutrophils # Seg Neutrophils # Man Lymphocytes # (Manual) Monocytes # (Manual) Eosinophils # (Manual) Basophils # (Manual) PT INR Fibrinogen dRVVT Confirm Interp Factor V Activity POC ABG pH POC ABG pCO2 18.9 L POC ABG pO2 143 H ABG pO2 ABG HCO3 ABG Base Excess ABG Hemoglobin Oxyhemoglobin Sodium Potassium Chloride Carbon Dioxide BUN Creatinine Glucose POC Glucose 153 H 108 H Lactic Acid Calcium Phosphorus Magnesium Direct Bilirubin AST ALT Alkaline Phosphatase Lactate Dehydrogenase Troponin T C-Reactive Protein Total Protein Albumin Prealbumin Triglycerides Cholesterol LDL Cholesterol Direct HDL Cholesterol Urine pH Urine WBC (Auto) Urine Creatinine Urine Total Protein Fluid Total Protein Vancomycin Trough Rheumatoid Factor Complement C4 Miscellaneous Test Crossmatch 09/23/16 09/23/16 09/24/16 21:19 23:43 05:16 WBC RBC Hgb Hct MCV MCH MCHC RDW Plt Count Lymph % (Auto) [place] % (Auto) Lymph # [place] # Baso # Seg Neutrophils % Seg Neuts % (Manual) Lymphocytes % (Manual) Monocytes % (Manual) Eosinophils % (Manual) Basophils % (Manual) Nucleated RBC % Seg Neutrophils # Seg Neutrophils # Man Lymphocytes # (Manual) Monocytes # (Manual) Eosinophils # (Manual) Basophils # (Manual) PT INR Fibrinogen dRVVT Confirm Interp Factor V Activity POC ABG pH POC ABG pCO2 17.3 L POC ABG pO2 112 H ABG pO2 ABG HCO3 ABG Base Excess ABG Hemoglobin Oxyhemoglobin Sodium Potassium Chloride Carbon Dioxide BUN Creatinine Glucose POC Glucose 143 H 164 H Lactic Acid Calcium Phosphorus Magnesium Direct Bilirubin AST ALT Alkaline Phosphatase Lactate Dehydrogenase Troponin T C-Reactive Protein Total Protein Albumin Prealbumin Triglycerides Cholesterol LDL Cholesterol Direct HDL Cholesterol Urine pH Urine WBC (Auto) Urine Creatinine Urine Total Protein Fluid Total Protein Vancomycin Trough Rheumatoid Factor Complement C4 Miscellaneous Test Crossmatch 09/24/16 09/24/16 09/24/16 05:21 11:58 17:06 WBC RBC Hgb Hct MCV MCH MCHC RDW Plt Count Lymph % (Auto) [place] % (Auto) Lymph # [place] # Baso # Seg Neutrophils % Seg Neuts % (Manual) Lymphocytes % (Manual) Monocytes % (Manual) Eosinophils % (Manual) Basophils % (Manual) Nucleated RBC % Seg Neutrophils # Seg Neutrophils # Man Lymphocytes # (Manual) Monocytes # (Manual) Eosinophils # (Manual) Basophils # (Manual) PT INR Fibrinogen dRVVT Confirm Interp Factor V Activity POC ABG pH POC ABG pCO2 POC ABG pO2 ABG pO2 ABG HCO3 ABG Base Excess ABG Hemoglobin Oxyhemoglobin Sodium Potassium Chloride Carbon Dioxide 10 L BUN 103 H Creatinine 4.3 H Glucose 163 H POC Glucose 173 H 167 H Lactic Acid Calcium 6.5 L Phosphorus Magnesium Direct Bilirubin AST ALT Alkaline Phosphatase Lactate Dehydrogenase Troponin T C-Reactive Protein Total Protein Albumin Prealbumin Triglycerides Cholesterol LDL Cholesterol Direct HDL Cholesterol Urine pH Urine WBC (Auto) Urine Creatinine Urine Total Protein Fluid Total Protein Vancomycin Trough Rheumatoid Factor Complement C4 Miscellaneous Test Crossmatch 09/24/16 09/24/16 09/24/16 20:15 21:02 23:48 WBC RBC Hgb Hct MCV MCH MCHC RDW Plt Count Lymph % (Auto) [place] % (Auto) Lymph # [place] # Baso # Seg Neutrophils % Seg Neuts % (Manual) Lymphocytes % (Manual) Monocytes % (Manual) Eosinophils % (Manual) Basophils % (Manual) Nucleated RBC % Seg Neutrophils # Seg Neutrophils # Man Lymphocytes # (Manual) Monocytes # (Manual) Eosinophils # (Manual) Basophils # (Manual) PT INR Fibrinogen dRVVT Confirm Interp Factor V Activity POC ABG pH 7.288 L POC ABG pCO2 30.2 L 21.5 L POC ABG pO2 32 L 39 L ABG pO2 ABG HCO3 ABG Base Excess ABG Hemoglobin Oxyhemoglobin Sodium Potassium Chloride Carbon Dioxide BUN Creatinine Glucose POC Glucose 109 H Lactic Acid Calcium Phosphorus Magnesium Direct Bilirubin AST ALT Alkaline Phosphatase Lactate Dehydrogenase Troponin T C-Reactive Protein Total Protein Albumin Prealbumin Triglycerides Cholesterol LDL Cholesterol Direct HDL Cholesterol Urine pH Urine WBC (Auto) Urine Creatinine Urine Total Protein Fluid Total Protein Vancomycin Trough Rheumatoid Factor Complement C4 Miscellaneous Test Crossmatch 09/25/16 09/25/16 09/25/16 04:20 04:20 04:20 WBC RBC 2.58 L Hgb 7.0 L Hct 21.0 L MCV MCH 27 L MCHC RDW 23.8 H Plt Count Lymph % (Auto) [place] % (Auto) Lymph # [place] # Baso # Seg Neutrophils % Seg Neuts % (Manual) Lymphocytes % (Manual) 12.0 L Monocytes % (Manual) Eosinophils % (Manual) 7.0 H Basophils % (Manual) 2.0 H Nucleated RBC % Seg Neutrophils # Seg Neutrophils # Man Lymphocytes # (Manual) 0.9 L Monocytes # (Manual) Eosinophils # (Manual) 0.5 H Basophils # (Manual) PT INR Fibrinogen dRVVT Confirm Interp Factor V Activity POC ABG pH POC ABG pCO2 POC ABG pO2 ABG pO2 ABG HCO3 ABG Base Excess ABG Hemoglobin Oxyhemoglobin Sodium Potassium Chloride Carbon Dioxide 15 L BUN 72 H Creatinine 3.8 H Glucose POC Glucose Lactic Acid Calcium 6.0 L Phosphorus 4.60 H Magnesium 1.60 L Direct Bilirubin AST ALT Alkaline Phosphatase Lactate Dehydrogenase Troponin T C-Reactive Protein Total Protein Albumin Prealbumin Triglycerides Cholesterol LDL Cholesterol Direct HDL Cholesterol Urine pH Urine WBC (Auto) Urine Creatinine Urine Total Protein Fluid Total Protein Vancomycin Trough Rheumatoid Factor Complement C4 Miscellaneous Test Crossmatch 09/25/16 09/25/16 09/25/16 04:57 08:02 10:30 WBC RBC Hgb Hct MCV MCH MCHC RDW Plt Count Lymph % (Auto) [place] % (Auto) Lymph # [place] # Baso # Seg Neutrophils % Seg Neuts % (Manual) Lymphocytes % (Manual) Monocytes % (Manual) Eosinophils % (Manual) Basophils % (Manual) Nucleated RBC % Seg Neutrophils # Seg Neutrophils # Man Lymphocytes # (Manual) Monocytes # (Manual) Eosinophils # (Manual) Basophils # (Manual) PT INR Fibrinogen dRVVT Confirm Interp Factor V Activity POC ABG pH POC ABG pCO2 24.7 L POC ABG pO2 152 H ABG pO2 ABG HCO3 ABG Base Excess ABG Hemoglobin Oxyhemoglobin Sodium Potassium Chloride Carbon Dioxide BUN Creatinine Glucose POC Glucose 113 H Lactic Acid Calcium Phosphorus Magnesium Direct Bilirubin AST ALT Alkaline Phosphatase Lactate Dehydrogenase Troponin T C-Reactive Protein Total Protein Albumin Prealbumin Triglycerides Cholesterol LDL Cholesterol Direct HDL Cholesterol Urine pH Urine WBC (Auto) Urine Creatinine Urine Total Protein Fluid Total Protein Vancomycin Trough Rheumatoid Factor Complement C4 Miscellaneous Test Crossmatch See Detail 09/25/16 09/25/16 09/25/16 12:05 17:44 23:47 WBC RBC Hgb Hct MCV MCH MCHC RDW Plt Count Lymph % (Auto) [place] % (Auto) Lymph # [place] # Baso # Seg Neutrophils % Seg Neuts % (Manual) Lymphocytes % (Manual) Monocytes % (Manual) Eosinophils % (Manual) Basophils % (Manual) Nucleated RBC % Seg Neutrophils # Seg Neutrophils # Man Lymphocytes # (Manual) Monocytes # (Manual) Eosinophils # (Manual) Basophils # (Manual) PT INR Fibrinogen dRVVT Confirm Interp Factor V Activity POC ABG pH POC ABG pCO2 POC ABG pO2 ABG pO2 ABG HCO3 ABG Base Excess ABG Hemoglobin Oxyhemoglobin Sodium Potassium Chloride Carbon Dioxide BUN Creatinine Glucose POC Glucose 117 H 119 H 150 H Lactic Acid Calcium Phosphorus Magnesium Direct Bilirubin AST ALT Alkaline Phosphatase Lactate Dehydrogenase Troponin T C-Reactive Protein Total Protein Albumin Prealbumin Triglycerides Cholesterol LDL Cholesterol Direct HDL Cholesterol Urine pH Urine WBC (Auto) Urine Creatinine Urine Total Protein Fluid Total Protein Vancomycin Trough Rheumatoid Factor Complement C4 Miscellaneous Test Crossmatch 09/26/16 09/26/16 09/26/16 04:25 04:25 04:25 WBC RBC 2.65 L Hgb 7.4 L Hct 21.6 L MCV MCH MCHC RDW 22.5 H Plt Count Lymph % (Auto) [place] % (Auto) Lymph # [place] # Baso # Seg Neutrophils % Seg Neuts % (Manual) Lymphocytes % (Manual) 6.0 L Monocytes % (Manual) Eosinophils % (Manual) 11.0 H Basophils % (Manual) Nucleated RBC % Seg Neutrophils # Seg Neutrophils # Man Lymphocytes # (Manual) 0.4 L Monocytes # (Manual) Eosinophils # (Manual) 0.6 H Basophils # (Manual) PT INR Fibrinogen dRVVT Confirm Interp Factor V Activity POC ABG pH POC ABG pCO2 POC ABG pO2 ABG pO2 ABG HCO3 ABG Base Excess ABG Hemoglobin Oxyhemoglobin Sodium Potassium Chloride 97.0 L Carbon Dioxide 19 L BUN 43 H Creatinine 2.6 H Glucose 130 H POC Glucose Lactic Acid 4.40 H* Calcium 6.7 L Phosphorus Magnesium Direct Bilirubin AST ALT Alkaline Phosphatase Lactate Dehydrogenase Troponin T C-Reactive Protein Total Protein Albumin Prealbumin Triglycerides Cholesterol LDL Cholesterol Direct HDL Cholesterol Urine pH Urine WBC (Auto) Urine Creatinine Urine Total Protein Fluid Total Protein Vancomycin Trough Rheumatoid Factor Complement C4 Miscellaneous Test Crossmatch 09/26/16 09/26/16 09/26/16 05:20 11:44 12:12 WBC RBC Hgb Hct MCV MCH MCHC RDW Plt Count Lymph % (Auto) [place] % (Auto) Lymph # [place] # Baso # Seg Neutrophils % Seg Neuts % (Manual) Lymphocytes % (Manual) Monocytes % (Manual) Eosinophils % (Manual) Basophils % (Manual) Nucleated RBC % Seg Neutrophils # Seg Neutrophils # Man Lymphocytes # (Manual) Monocytes # (Manual) Eosinophils # (Manual) Basophils # (Manual) PT INR Fibrinogen dRVVT Confirm Interp Factor V Activity POC ABG pH POC ABG pCO2 27.0 L POC ABG pO2 69 L ABG pO2 ABG HCO3 ABG Base Excess ABG Hemoglobin Oxyhemoglobin Sodium Potassium Chloride Carbon Dioxide BUN Creatinine Glucose POC Glucose 121 H 128 H Lactic Acid Calcium Phosphorus Magnesium Direct Bilirubin AST ALT Alkaline Phosphatase Lactate Dehydrogenase Troponin T C-Reactive Protein Total Protein Albumin Prealbumin Triglycerides Cholesterol LDL Cholesterol Direct HDL Cholesterol Urine pH Urine WBC (Auto) Urine Creatinine Urine Total Protein Fluid Total Protein Vancomycin Trough Rheumatoid Factor Complement C4 Miscellaneous Test Crossmatch 09/26/16 09/26/16 09/27/16 18:31 23:40 08:20 WBC RBC Hgb Hct MCV MCH MCHC RDW Plt Count Lymph % (Auto) [place] % (Auto) Lymph # [place] # Baso # Seg Neutrophils % Seg Neuts % (Manual) Lymphocytes % (Manual) Monocytes % (Manual) Eosinophils % (Manual) Basophils % (Manual) Nucleated RBC % Seg Neutrophils # Seg Neutrophils # Man Lymphocytes # (Manual) Monocytes # (Manual) Eosinophils # (Manual) Basophils # (Manual) PT INR Fibrinogen dRVVT Confirm Interp Factor V Activity POC ABG pH POC ABG pCO2 POC ABG pO2 ABG pO2 ABG HCO3 ABG Base Excess ABG Hemoglobin Oxyhemoglobin Sodium Potassium Chloride Carbon Dioxide BUN Creatinine Glucose POC Glucose 120 H 133 H Lactic Acid 4.10 H* Calcium Phosphorus Magnesium Direct Bilirubin AST ALT Alkaline Phosphatase Lactate Dehydrogenase Troponin T C-Reactive Protein Total Protein Albumin Prealbumin Triglycerides Cholesterol LDL Cholesterol Direct HDL Cholesterol Urine pH Urine WBC (Auto) Urine Creatinine Urine Total Protein Fluid Total Protein Vancomycin Trough Rheumatoid Factor Complement C4 Miscellaneous Test Crossmatch 09/27/16 09/27/16 09/27/16 11:23 15:00 18:15 WBC RBC Hgb Hct MCV MCH MCHC RDW Plt Count Lymph % (Auto) [place] % (Auto) Lymph # [place] # Baso # Seg Neutrophils % Seg Neuts % (Manual) Lymphocytes % (Manual) Monocytes % (Manual) Eosinophils % (Manual) Basophils % (Manual) Nucleated RBC % Seg Neutrophils # Seg Neutrophils # Man Lymphocytes # (Manual) Monocytes # (Manual) Eosinophils # (Manual) Basophils # (Manual) PT INR Fibrinogen dRVVT Confirm Interp Factor V Activity POC ABG pH 7.459 H POC ABG pCO2 27.1 L POC ABG pO2 140 H ABG pO2 ABG HCO3 ABG Base Excess ABG Hemoglobin Oxyhemoglobin Sodium Potassium Chloride Carbon Dioxide BUN Creatinine Glucose POC Glucose 114 H 127 H Lactic Acid Calcium Phosphorus Magnesium Direct Bilirubin AST ALT Alkaline Phosphatase Lactate Dehydrogenase Troponin T C-Reactive Protein Total Protein Albumin Prealbumin Triglycerides Cholesterol LDL Cholesterol Direct HDL Cholesterol Urine pH Urine WBC (Auto) Urine Creatinine Urine Total Protein Fluid Total Protein Vancomycin Trough Rheumatoid Factor Complement C4 Miscellaneous Test Crossmatch 09/27/16 09/27/16 09/28/16 Unknown Unknown 03:45 WBC RBC 2.49 L Hgb 6.8 L Hct 20.7 L MCV MCH 27 L MCHC RDW 22.1 H Plt Count Lymph % (Auto) [place] % (Auto) Lymph # [place] # Baso # Seg Neutrophils % Seg Neuts % (Manual) 32.0 L Lymphocytes % (Manual) 12.0 L Monocytes % (Manual) 11.0 H Eosinophils % (Manual) 10.0 H Basophils % (Manual) Nucleated RBC % Seg Neutrophils # Seg Neutrophils # Man Lymphocytes # (Manual) 1.0 L Monocytes # (Manual) 0.9 H Eosinophils # (Manual) 0.8 H Basophils # (Manual) PT INR Fibrinogen dRVVT Confirm Interp Factor V Activity POC ABG pH POC ABG pCO2 POC ABG pO2 ABG pO2 ABG HCO3 ABG Base Excess ABG Hemoglobin Oxyhemoglobin Sodium 135 L 135 L Potassium 3.5 L Chloride 93.6 L 94.4 L Carbon Dioxide 17 L 21 L BUN 45 H 28 H Creatinine 3.3 H 2.5 H Glucose 106 H POC Glucose Lactic Acid Calcium 7.3 L 7.1 L Phosphorus Magnesium Direct Bilirubin AST ALT Alkaline Phosphatase Lactate Dehydrogenase Troponin T C-Reactive Protein Total Protein Albumin Prealbumin Triglycerides Cholesterol LDL Cholesterol Direct HDL Cholesterol Urine pH Urine WBC (Auto) Urine Creatinine Urine Total Protein Fluid Total Protein Vancomycin Trough Rheumatoid Factor Complement C4 Miscellaneous Test Crossmatch 09/28/16 09/28/16 09/28/16 03:45 07:25 11:58 WBC 13.3 H RBC 3.01 L Hgb 8.4 L Hct 25.0 L MCV MCH MCHC RDW 20.5 H Plt Count 128 L Lymph % (Auto) [place] % (Auto) Lymph # [place] # Baso # Seg Neutrophils % Seg Neuts % (Manual) Lymphocytes % (Manual) 7.0 L Monocytes % (Manual) Eosinophils % (Manual) 6.0 H Basophils % (Manual) Nucleated RBC % Seg Neutrophils # Seg Neutrophils # Man Lymphocytes # (Manual) 0.9 L Monocytes # (Manual) Eosinophils # (Manual) 0.8 H Basophils # (Manual) PT INR Fibrinogen dRVVT Confirm Interp Factor V Activity POC ABG pH POC ABG pCO2 POC ABG pO2 ABG pO2 ABG HCO3 ABG Base Excess ABG Hemoglobin Oxyhemoglobin Sodium Potassium Chloride Carbon Dioxide BUN Creatinine Glucose POC Glucose 121 H Lactic Acid 4.50 H* Calcium Phosphorus Magnesium Direct Bilirubin AST ALT Alkaline Phosphatase Lactate Dehydrogenase Troponin T C-Reactive Protein Total Protein Albumin Prealbumin Triglycerides Cholesterol LDL Cholesterol Direct HDL Cholesterol Urine pH Urine WBC (Auto) Urine Creatinine Urine Total Protein Fluid Total Protein Vancomycin Trough Rheumatoid Factor Complement C4 Miscellaneous Test Crossmatch 09/29/16 09/29/16 09/29/16 06:45 06:45 06:45 WBC 14.9 H RBC 2.74 L Hgb 7.6 L Hct 23.2 L MCV MCH MCHC RDW 20.5 H Plt Count 81 L Lymph % (Auto) [place] % (Auto) Lymph # [place] # Baso # Seg Neutrophils % Seg Neuts % (Manual) 81.0 H Lymphocytes % (Manual) 4.0 L Monocytes % (Manual) Eosinophils % (Manual) Basophils % (Manual) Nucleated RBC % Seg Neutrophils # Seg Neutrophils # Man 12.1 H Lymphocytes # (Manual) 0.6 L Monocytes # (Manual) Eosinophils # (Manual) Basophils # (Manual) PT INR Fibrinogen dRVVT Confirm Interp Factor V Activity POC ABG pH POC ABG pCO2 POC ABG pO2 ABG pO2 ABG HCO3 ABG Base Excess ABG Hemoglobin Oxyhemoglobin Sodium 133 L Potassium 3.4 L Chloride 92.5 L Carbon Dioxide 21 L BUN 33 H Creatinine 3.0 H Glucose POC Glucose Lactic Acid Calcium 6.6 L Phosphorus Magnesium 1.40 L Direct Bilirubin 0.9 H AST ALT Alkaline Phosphatase Lactate Dehydrogenase Troponin T C-Reactive Protein Total Protein 4.3 L Albumin 1.3 L Prealbumin Triglycerides Cholesterol LDL Cholesterol Direct HDL Cholesterol Urine pH Urine WBC (Auto) Urine Creatinine Urine Total Protein Fluid Total Protein Vancomycin Trough Rheumatoid Factor Complement C4 Miscellaneous Test Crossmatch 09/29/16 09/29/16 09/30/16 17:52 20:12 00:07 WBC RBC Hgb Hct MCV MCH MCHC RDW Plt Count Lymph % (Auto) [place] % (Auto) Lymph # [place] # Baso # Seg Neutrophils % Seg Neuts % (Manual) Lymphocytes % (Manual) Monocytes % (Manual) Eosinophils % (Manual) Basophils % (Manual) Nucleated RBC % Seg Neutrophils # Seg Neutrophils # Man Lymphocytes # (Manual) Monocytes # (Manual) Eosinophils # (Manual) Basophils # (Manual) PT INR Fibrinogen dRVVT Confirm Interp Factor V Activity POC ABG pH POC ABG pCO2 POC ABG pO2 ABG pO2 ABG HCO3 ABG Base Excess ABG Hemoglobin Oxyhemoglobin Sodium Potassium Chloride Carbon Dioxide BUN Creatinine Glucose POC Glucose 50 L 51 L Lactic Acid Calcium Phosphorus Magnesium Direct Bilirubin AST ALT Alkaline Phosphatase Lactate Dehydrogenase Troponin T 0.204 H* C-Reactive Protein Total Protein Albumin Prealbumin Triglycerides Cholesterol 31 L LDL Cholesterol Direct 4 L HDL Cholesterol 3 L Urine pH Urine WBC (Auto) Urine Creatinine Urine Total Protein Fluid Total Protein Vancomycin Trough Rheumatoid Factor Complement C4 Miscellaneous Test Crossmatch 09/30/16 09/30/16 09/30/16 01:30 05:15 06:10 WBC RBC Hgb Hct MCV MCH MCHC RDW Plt Count Lymph % (Auto) [place] % (Auto) Lymph # [place] # Baso # Seg Neutrophils % Seg Neuts % (Manual) Lymphocytes % (Manual) Monocytes % (Manual) Eosinophils % (Manual) Basophils % (Manual) Nucleated RBC % Seg Neutrophils # Seg Neutrophils # Man Lymphocytes # (Manual) Monocytes # (Manual) Eosinophils # (Manual) Basophils # (Manual) PT INR Fibrinogen dRVVT Confirm Interp Factor V Activity POC ABG pH POC ABG pCO2 POC ABG pO2 ABG pO2 ABG HCO3 ABG Base Excess ABG Hemoglobin Oxyhemoglobin Sodium 133 L Potassium 3.2 L Chloride 93.2 L Carbon Dioxide 19 L BUN 36 H Creatinine 3.2 H Glucose 104 H POC Glucose 167 H 146 H Lactic Acid Calcium 6.4 L Phosphorus Magnesium 1.60 L Direct Bilirubin AST ALT Alkaline Phosphatase Lactate Dehydrogenase Troponin T C-Reactive Protein Total Protein Albumin Prealbumin Triglycerides Cholesterol LDL Cholesterol Direct HDL Cholesterol Urine pH Urine WBC (Auto) Urine Creatinine Urine Total Protein Fluid Total Protein Vancomycin Trough Rheumatoid Factor Complement C4 Miscellaneous Test Crossmatch 09/30/16 09/30/16 09/30/16 11:26 13:39 18:38 WBC RBC Hgb Hct MCV MCH MCHC RDW Plt Count Lymph % (Auto) [place] % (Auto) Lymph # [place] # Baso # Seg Neutrophils % Seg Neuts % (Manual) Lymphocytes % (Manual) Monocytes % (Manual) Eosinophils % (Manual) Basophils % (Manual) Nucleated RBC % Seg Neutrophils # Seg Neutrophils # Man Lymphocytes # (Manual) Monocytes # (Manual) Eosinophils # (Manual) Basophils # (Manual) PT INR Fibrinogen dRVVT Confirm Interp Factor V Activity POC ABG pH 7.479 H POC ABG pCO2 29.8 L POC ABG pO2 117 H ABG pO2 ABG HCO3 ABG Base Excess ABG Hemoglobin Oxyhemoglobin Sodium Potassium Chloride Carbon Dioxide BUN Creatinine Glucose POC Glucose 140 H 122 H Lactic Acid Calcium Phosphorus Magnesium Direct Bilirubin AST ALT Alkaline Phosphatase Lactate Dehydrogenase Troponin T C-Reactive Protein Total Protein Albumin Prealbumin Triglycerides Cholesterol LDL Cholesterol Direct HDL Cholesterol Urine pH Urine WBC (Auto) Urine Creatinine Urine Total Protein Fluid Total Protein Vancomycin Trough Rheumatoid Factor Complement C4 Miscellaneous Test Crossmatch 10/01/16 10/01/16 10/01/16 06:00 06:00 12:37 WBC 12.6 H RBC 2.75 L Hgb 7.3 L Hct 23.3 L MCV MCH 27 L MCHC RDW 20.6 H Plt Count 72 L Lymph % (Auto) [place] % (Auto) Lymph # [place] # Baso # Seg Neutrophils % Seg Neuts % (Manual) 31.0 L Lymphocytes % (Manual) 8.0 L Monocytes % (Manual) Eosinophils % (Manual) Basophils % (Manual) Nucleated RBC % 3.0 H Seg Neutrophils # Seg Neutrophils # Man Lymphocytes # (Manual) 1.0 L Monocytes # (Manual) Eosinophils # (Manual) Basophils # (Manual) PT INR Fibrinogen dRVVT Confirm Interp Factor V Activity POC ABG pH POC ABG pCO2 POC ABG pO2 ABG pO2 ABG HCO3 ABG Base Excess ABG Hemoglobin Oxyhemoglobin Sodium 127 L Potassium Chloride 86.8 L Carbon Dioxide 20 L BUN 42 H Creatinine 3.5 H Glucose POC Glucose 65 L Lactic Acid Calcium 7.0 L Phosphorus Magnesium Direct Bilirubin AST ALT Alkaline Phosphatase Lactate Dehydrogenase Troponin T C-Reactive Protein Total Protein Albumin Prealbumin Triglycerides Cholesterol LDL Cholesterol Direct HDL Cholesterol Urine pH Urine WBC (Auto) Urine Creatinine Urine Total Protein Fluid Total Protein Vancomycin Trough Rheumatoid Factor Complement C4 Miscellaneous Test Crossmatch 10/01/16 10/01/16 10/02/16 17:39 23:32 00:59 WBC RBC Hgb Hct MCV MCH MCHC RDW Plt Count Lymph % (Auto) [place] % (Auto) Lymph # [place] # Baso # Seg Neutrophils % Seg Neuts % (Manual) Lymphocytes % (Manual) Monocytes % (Manual) Eosinophils % (Manual) Basophils % (Manual) Nucleated RBC % Seg Neutrophils # Seg Neutrophils # Man Lymphocytes # (Manual) Monocytes # (Manual) Eosinophils # (Manual) Basophils # (Manual) PT INR Fibrinogen dRVVT Confirm Interp Factor V Activity POC ABG pH POC ABG pCO2 POC ABG pO2 ABG pO2 ABG HCO3 ABG Base Excess ABG Hemoglobin Oxyhemoglobin Sodium Potassium Chloride Carbon Dioxide BUN Creatinine Glucose POC Glucose 107 H 52 L 145 H Lactic Acid Calcium Phosphorus Magnesium Direct Bilirubin AST ALT Alkaline Phosphatase Lactate Dehydrogenase Troponin T C-Reactive Protein Total Protein Albumin Prealbumin Triglycerides Cholesterol LDL Cholesterol Direct HDL Cholesterol Urine pH Urine WBC (Auto) Urine Creatinine Urine Total Protein Fluid Total Protein Vancomycin Trough Rheumatoid Factor Complement C4 Miscellaneous Test Crossmatch 10/02/16 10/02/16 10/02/16 10:30 10:50 10:50 WBC 14.7 H RBC 2.76 L Hgb 7.4 L Hct 23.6 L MCV MCH 27 L MCHC RDW 20.2 H Plt Count 79 L Lymph % (Auto) [place] % (Auto) Lymph # [place] # Baso # Seg Neutrophils % Seg Neuts % (Manual) 86.0 H Lymphocytes % (Manual) 6.0 L Monocytes % (Manual) Eosinophils % (Manual) Basophils % (Manual) Nucleated RBC % Seg Neutrophils # Seg Neutrophils # Man 12.6 H Lymphocytes # (Manual) 0.9 L Monocytes # (Manual) Eosinophils # (Manual) Basophils # (Manual) PT INR Fibrinogen dRVVT Confirm Interp Factor V Activity POC ABG pH 7.486 H POC ABG pCO2 30.1 L POC ABG pO2 108 H ABG pO2 ABG HCO3 ABG Base Excess ABG Hemoglobin Oxyhemoglobin Sodium 131 L Potassium 3.4 L Chloride 89.9 L Carbon Dioxide BUN 26 H Creatinine 2.6 H Glucose POC Glucose Lactic Acid Calcium 7.0 L Phosphorus Magnesium Direct Bilirubin AST ALT Alkaline Phosphatase Lactate Dehydrogenase Troponin T C-Reactive Protein Total Protein Albumin Prealbumin Triglycerides Cholesterol LDL Cholesterol Direct HDL Cholesterol Urine pH Urine WBC (Auto) Urine Creatinine Urine Total Protein Fluid Total Protein Vancomycin Trough Rheumatoid Factor Complement C4 Miscellaneous Test Crossmatch 10/02/16 10/03/16 10/03/16 23:45 00:45 05:10 WBC 12.9 H RBC 2.77 L Hgb 7.6 L Hct 23.7 L MCV MCH 27 L MCHC RDW 19.7 H Plt Count 89 L Lymph % (Auto) [place] % (Auto) Lymph # [place] # Baso # Seg Neutrophils % Seg Neuts % (Manual) Lymphocytes % (Manual) 8.0 L Monocytes % (Manual) Eosinophils % (Manual) Basophils % (Manual) Nucleated RBC % Seg Neutrophils # 11.9 H Seg Neutrophils # Man Lymphocytes # (Manual) 1.0 L Monocytes # (Manual) Eosinophils # (Manual) Basophils # (Manual) PT INR Fibrinogen dRVVT Confirm Interp Factor V Activity POC ABG pH POC ABG pCO2 POC ABG pO2 ABG pO2 ABG HCO3 ABG Base Excess ABG Hemoglobin Oxyhemoglobin Sodium Potassium Chloride Carbon Dioxide BUN Creatinine Glucose POC Glucose 55 L 199 H Lactic Acid Calcium Phosphorus Magnesium Direct Bilirubin AST ALT Alkaline Phosphatase Lactate Dehydrogenase Troponin T C-Reactive Protein Total Protein Albumin Prealbumin Triglycerides Cholesterol LDL Cholesterol Direct HDL Cholesterol Urine pH Urine WBC (Auto) Urine Creatinine Urine Total Protein Fluid Total Protein Vancomycin Trough Rheumatoid Factor Complement C4 Miscellaneous Test Crossmatch 10/03/16 10/03/16 10/03/16 05:10 12:14 13:18 WBC RBC Hgb Hct MCV MCH MCHC RDW Plt Count Lymph % (Auto) [place] % (Auto) Lymph # [place] # Baso # Seg Neutrophils % Seg Neuts % (Manual) Lymphocytes % (Manual) Monocytes % (Manual) Eosinophils % (Manual) Basophils % (Manual) Nucleated RBC % Seg Neutrophils # Seg Neutrophils # Man Lymphocytes # (Manual) Monocytes # (Manual) Eosinophils # (Manual) Basophils # (Manual) PT INR Fibrinogen dRVVT Confirm Interp Factor V Activity POC ABG pH POC ABG pCO2 POC ABG pO2 ABG pO2 ABG HCO3 ABG Base Excess ABG Hemoglobin Oxyhemoglobin Sodium 129 L Potassium 3.3 L Chloride 88.8 L Carbon Dioxide 20 L BUN 29 H Creatinine 2.8 H Glucose POC Glucose 68 L 127 H Lactic Acid Calcium 7.2 L Phosphorus Magnesium Direct Bilirubin AST ALT Alkaline Phosphatase Lactate Dehydrogenase Troponin T C-Reactive Protein Total Protein Albumin Prealbumin Triglycerides Cholesterol LDL Cholesterol Direct HDL Cholesterol Urine pH Urine WBC (Auto) Urine Creatinine Urine Total Protein Fluid Total Protein Vancomycin Trough Rheumatoid Factor Complement C4 Miscellaneous Test Crossmatch 10/03/16 10/03/16 10/03/16 14:42 18:21 19:09 WBC RBC Hgb Hct MCV MCH MCHC RDW Plt Count Lymph % (Auto) [place] % (Auto) Lymph # [place] # Baso # Seg Neutrophils % Seg Neuts % (Manual) Lymphocytes % (Manual) Monocytes % (Manual) Eosinophils % (Manual) Basophils % (Manual) Nucleated RBC % Seg Neutrophils # Seg Neutrophils # Man Lymphocytes # (Manual) Monocytes # (Manual) Eosinophils # (Manual) Basophils # (Manual) PT INR Fibrinogen dRVVT Confirm Interp Factor V Activity POC ABG pH 7.499 H POC ABG pCO2 28.4 L POC ABG pO2 44 L ABG pO2 ABG HCO3 ABG Base Excess ABG Hemoglobin Oxyhemoglobin Sodium Potassium Chloride Carbon Dioxide BUN Creatinine Glucose POC Glucose 64 L 205 H Lactic Acid Calcium Phosphorus Magnesium Direct Bilirubin AST ALT Alkaline Phosphatase Lactate Dehydrogenase Troponin T C-Reactive Protein Total Protein Albumin Prealbumin Triglycerides Cholesterol LDL Cholesterol Direct HDL Cholesterol Urine pH Urine WBC (Auto) Urine Creatinine Urine Total Protein Fluid Total Protein Vancomycin Trough Rheumatoid Factor Complement C4 Miscellaneous Test Crossmatch 10/03/16 10/04/16 10/04/16 23:33 04:18 06:30 WBC RBC 2.54 L Hgb 7.1 L Hct 21.7 L MCV MCH MCHC RDW 19.5 H Plt Count 76 L Lymph % (Auto) [place] % (Auto) Lymph # [place] # Baso # Seg Neutrophils % Seg Neuts % (Manual) 88.0 H Lymphocytes % (Manual) 6.0 L Monocytes % (Manual) Eosinophils % (Manual) Basophils % (Manual) Nucleated RBC % Seg Neutrophils # Seg Neutrophils # Man 8.8 H Lymphocytes # (Manual) 0.6 L Monocytes # (Manual) Eosinophils # (Manual) Basophils # (Manual) PT INR Fibrinogen dRVVT Confirm Interp Factor V Activity POC ABG pH 7.461 H POC ABG pCO2 33.6 L POC ABG pO2 211 H ABG pO2 ABG HCO3 ABG Base Excess ABG Hemoglobin Oxyhemoglobin Sodium Potassium Chloride Carbon Dioxide BUN Creatinine Glucose POC Glucose 136 H Lactic Acid Calcium Phosphorus Magnesium Direct Bilirubin AST ALT Alkaline Phosphatase Lactate Dehydrogenase Troponin T C-Reactive Protein Total Protein Albumin Prealbumin Triglycerides Cholesterol LDL Cholesterol Direct HDL Cholesterol Urine pH Urine WBC (Auto) Urine Creatinine Urine Total Protein Fluid Total Protein Vancomycin Trough Rheumatoid Factor Complement C4 Miscellaneous Test Crossmatch 10/04/16 10/04/16 10/04/16 06:30 11:45 17:54 WBC RBC Hgb Hct MCV MCH MCHC RDW Plt Count Lymph % (Auto) [place] % (Auto) Lymph # [place] # Baso # Seg Neutrophils % Seg Neuts % (Manual) Lymphocytes % (Manual) Monocytes % (Manual) Eosinophils % (Manual) Basophils % (Manual) Nucleated RBC % Seg Neutrophils # Seg Neutrophils # Man Lymphocytes # (Manual) Monocytes # (Manual) Eosinophils # (Manual) Basophils # (Manual) PT INR Fibrinogen dRVVT Confirm Interp Factor V Activity POC ABG pH POC ABG pCO2 POC ABG pO2 ABG pO2 ABG HCO3 ABG Base Excess ABG Hemoglobin Oxyhemoglobin Sodium 128 L Potassium Chloride 87.4 L Carbon Dioxide 20 L BUN 34 H Creatinine 2.9 H Glucose 127 H POC Glucose 158 H 160 H Lactic Acid Calcium 7.4 L Phosphorus Magnesium Direct Bilirubin AST ALT Alkaline Phosphatase Lactate Dehydrogenase Troponin T C-Reactive Protein Total Protein Albumin Prealbumin Triglycerides Cholesterol LDL Cholesterol Direct HDL Cholesterol Urine pH Urine WBC (Auto) Urine Creatinine Urine Total Protein Fluid Total Protein Vancomycin Trough Rheumatoid Factor Complement C4 Miscellaneous Test Crossmatch 10/04/16 10/05/16 10/05/16 23:25 04:30 05:00 WBC RBC 2.64 L Hgb 7.5 L Hct 22.6 L MCV MCH MCHC RDW 19.3 H Plt Count 80 L Lymph % (Auto) [place] % (Auto) Lymph # [place] # Baso # Seg Neutrophils % Seg Neuts % (Manual) Lymphocytes % (Manual) 12.0 L Monocytes % (Manual) Eosinophils % (Manual) Basophils % (Manual) Nucleated RBC % Seg Neutrophils # Seg Neutrophils # Man Lymphocytes # (Manual) Monocytes # (Manual) Eosinophils # (Manual) Basophils # (Manual) PT INR Fibrinogen dRVVT Confirm Interp Factor V Activity POC ABG pH 7.475 H POC ABG pCO2 33.3 L POC ABG pO2 140 H ABG pO2 ABG HCO3 ABG Base Excess ABG Hemoglobin Oxyhemoglobin Sodium Potassium Chloride Carbon Dioxide BUN Creatinine Glucose POC Glucose 141 H Lactic Acid Calcium Phosphorus Magnesium Direct Bilirubin AST ALT Alkaline Phosphatase Lactate Dehydrogenase Troponin T C-Reactive Protein Total Protein Albumin Prealbumin Triglycerides Cholesterol LDL Cholesterol Direct HDL Cholesterol Urine pH Urine WBC (Auto) Urine Creatinine Urine Total Protein Fluid Total Protein Vancomycin Trough Rheumatoid Factor Complement C4 Miscellaneous Test Crossmatch 10/05/16 10/05/16 10/05/16 05:00 05:09 12:58 WBC RBC Hgb Hct MCV MCH MCHC RDW Plt Count Lymph % (Auto) [place] % (Auto) Lymph # [place] # Baso # Seg Neutrophils % Seg Neuts % (Manual) Lymphocytes % (Manual) Monocytes % (Manual) Eosinophils % (Manual) Basophils % (Manual) Nucleated RBC % Seg Neutrophils # Seg Neutrophils # Man Lymphocytes # (Manual) Monocytes # (Manual) Eosinophils # (Manual) Basophils # (Manual) PT INR Fibrinogen dRVVT Confirm Interp Factor V Activity POC ABG pH POC ABG pCO2 POC ABG pO2 ABG pO2 ABG HCO3 ABG Base Excess ABG Hemoglobin Oxyhemoglobin Sodium 131 L Potassium Chloride 94.0 L Carbon Dioxide 20 L BUN 22 H Creatinine 2.0 H Glucose 123 H POC Glucose 166 H 179 H Lactic Acid Calcium 7.7 L Phosphorus 2.20 L D Magnesium Direct Bilirubin AST ALT Alkaline Phosphatase Lactate Dehydrogenase Troponin T C-Reactive Protein Total Protein Albumin Prealbumin Triglycerides Cholesterol LDL Cholesterol Direct HDL Cholesterol Urine pH Urine WBC (Auto) Urine Creatinine Urine Total Protein Fluid Total Protein Vancomycin Trough Rheumatoid Factor Complement C4 Miscellaneous Test Crossmatch 10/05/16 10/05/16 10/05/16 15:50 18:53 23:12 WBC RBC Hgb Hct MCV MCH MCHC RDW Plt Count Lymph % (Auto) [place] % (Auto) Lymph # [place] # Baso # Seg Neutrophils % Seg Neuts % (Manual) Lymphocytes % (Manual) Monocytes % (Manual) Eosinophils % (Manual) Basophils % (Manual) Nucleated RBC % Seg Neutrophils # Seg Neutrophils # Man Lymphocytes # (Manual) Monocytes # (Manual) Eosinophils # (Manual) Basophils # (Manual) PT INR Fibrinogen dRVVT Confirm Interp Factor V Activity POC ABG pH POC ABG pCO2 POC ABG pO2 ABG pO2 ABG HCO3 ABG Base Excess ABG Hemoglobin Oxyhemoglobin Sodium Potassium Chloride Carbon Dioxide BUN Creatinine Glucose POC Glucose 150 H 164 H Lactic Acid Calcium Phosphorus Magnesium Direct Bilirubin AST ALT Alkaline Phosphatase Lactate Dehydrogenase Troponin T C-Reactive Protein Total Protein Albumin Prealbumin Triglycerides Cholesterol LDL Cholesterol Direct HDL Cholesterol Urine pH Urine WBC (Auto) Urine Creatinine Urine Total Protein Fluid Total Protein Vancomycin Trough Rheumatoid Factor Complement C4 Miscellaneous Test Crossmatch See Detail 10/06/16 10/06/16 10/06/16 03:50 03:50 04:53 WBC RBC 3.00 L Hgb 8.6 L Hct 25.8 L MCV MCH MCHC RDW 17.9 H Plt Count 65 L Lymph % (Auto) [place] % (Auto) Lymph # [place] # Baso # Seg Neutrophils % Seg Neuts % (Manual) 30.0 L Lymphocytes % (Manual) 5.0 L Monocytes % (Manual) Eosinophils % (Manual) Basophils % (Manual) Nucleated RBC % Seg Neutrophils # Seg Neutrophils # Man Lymphocytes # (Manual) 0.4 L Monocytes # (Manual) Eosinophils # (Manual) Basophils # (Manual) PT INR Fibrinogen dRVVT Confirm Interp Factor V Activity POC ABG pH 7.310 L POC ABG pCO2 49.0 H POC ABG pO2 ABG pO2 ABG HCO3 ABG Base Excess ABG Hemoglobin Oxyhemoglobin Sodium 133 L Potassium Chloride 95.9 L Carbon Dioxide BUN 26 H Creatinine 2.0 H Glucose 116 H POC Glucose Lactic Acid Calcium 7.8 L Phosphorus Magnesium Direct Bilirubin AST ALT Alkaline Phosphatase Lactate Dehydrogenase Troponin T C-Reactive Protein Total Protein Albumin Prealbumin Triglycerides Cholesterol LDL Cholesterol Direct HDL Cholesterol Urine pH Urine WBC (Auto) Urine Creatinine Urine Total Protein Fluid Total Protein Vancomycin Trough Rheumatoid Factor Complement C4 Miscellaneous Test Crossmatch 10/06/16 10/06/16 10/06/16 05:23 11:52 18:34 WBC RBC Hgb Hct MCV MCH MCHC RDW Plt Count Lymph % (Auto) [place] % (Auto) Lymph # [place] # Baso # Seg Neutrophils % Seg Neuts % (Manual) Lymphocytes % (Manual) Monocytes % (Manual) Eosinophils % (Manual) Basophils % (Manual) Nucleated RBC % Seg Neutrophils # Seg Neutrophils # Man Lymphocytes # (Manual) Monocytes # (Manual) Eosinophils # (Manual) Basophils # (Manual) PT INR Fibrinogen dRVVT Confirm Interp Factor V Activity POC ABG pH POC ABG pCO2 POC ABG pO2 ABG pO2 ABG HCO3 ABG Base Excess ABG Hemoglobin Oxyhemoglobin Sodium Potassium Chloride Carbon Dioxide BUN Creatinine Glucose POC Glucose 126 H 116 H 129 H Lactic Acid Calcium Phosphorus Magnesium Direct Bilirubin AST ALT Alkaline Phosphatase Lactate Dehydrogenase Troponin T C-Reactive Protein Total Protein Albumin Prealbumin Triglycerides Cholesterol LDL Cholesterol Direct HDL Cholesterol Urine pH Urine WBC (Auto) Urine Creatinine Urine Total Protein Fluid Total Protein Vancomycin Trough Rheumatoid Factor Complement C4 Miscellaneous Test Crossmatch 10/07/16 10/07/16 10/07/16 03:45 05:00 10:00 WBC 17.0 H RBC 2.68 L Hgb 7.3 L Hct 25.3 L MCV MCH 27 L MCHC 29 L RDW 19.6 H Plt Count 74 L Lymph % (Auto) [place] % (Auto) Lymph # [place] # Baso # Seg Neutrophils % Seg Neuts % (Manual) Lymphocytes % (Manual) 12.0 L Monocytes % (Manual) Eosinophils % (Manual) Basophils % (Manual) Nucleated RBC % 4.0 H Seg Neutrophils # Seg Neutrophils # Man 10.7 H Lymphocytes # (Manual) Monocytes # (Manual) Eosinophils # (Manual) Basophils # (Manual) PT INR Fibrinogen dRVVT Confirm Interp Factor V Activity POC ABG pH POC ABG pCO2 POC ABG pO2 ABG pO2 ABG HCO3 ABG Base Excess ABG Hemoglobin Oxyhemoglobin Sodium 130 L Potassium 3.2 L Chloride 93.9 L Carbon Dioxide 20 L BUN 44 H Creatinine 2.7 H Glucose 129 H POC Glucose Lactic Acid Calcium 7.4 L Phosphorus Magnesium Direct Bilirubin AST ALT 6 L Alkaline Phosphatase 195 H Lactate Dehydrogenase Troponin T C-Reactive Protein Total Protein 4.9 L Albumin 1.0 L Prealbumin Triglycerides Cholesterol LDL Cholesterol Direct HDL Cholesterol Urine pH Urine WBC (Auto) Urine Creatinine Urine Total Protein Fluid Total Protein Vancomycin Trough Rheumatoid Factor Complement C4 Miscellaneous Test Flexitest 1 H Crossmatch 10/07/16 10/07/16 10/07/16 10:00 11:24 18:10 WBC RBC Hgb Hct MCV MCH MCHC RDW Plt Count Lymph % (Auto) [place] % (Auto) Lymph # [place] # Baso # Seg Neutrophils % Seg Neuts % (Manual) Lymphocytes % (Manual) Monocytes % (Manual) Eosinophils % (Manual) Basophils % (Manual) Nucleated RBC % Seg Neutrophils # Seg Neutrophils # Man Lymphocytes # (Manual) Monocytes # (Manual) Eosinophils # (Manual) Basophils # (Manual) PT INR Fibrinogen dRVVT Confirm Interp Factor V Activity POC ABG pH POC ABG pCO2 POC ABG pO2 ABG pO2 ABG HCO3 ABG Base Excess ABG Hemoglobin Oxyhemoglobin Sodium Potassium Chloride Carbon Dioxide BUN Creatinine Glucose POC Glucose 116 H 130 H Lactic Acid Calcium Phosphorus Magnesium Direct Bilirubin AST ALT Alkaline Phosphatase Lactate Dehydrogenase Troponin T C-Reactive Protein 19.40 H Total Protein Albumin Prealbumin Triglycerides Cholesterol LDL Cholesterol Direct HDL Cholesterol Urine pH Urine WBC (Auto) Urine Creatinine Urine Total Protein Fluid Total Protein Vancomycin Trough Rheumatoid Factor Complement C4 Miscellaneous Test Crossmatch 10/07/16 10/08/16 10/08/16 18:30 00:00 04:00 WBC RBC Hgb Hct MCV MCH MCHC RDW Plt Count Lymph % (Auto) [place] % (Auto) Lymph # [place] # Baso # Seg Neutrophils % Seg Neuts % (Manual) Lymphocytes % (Manual) Monocytes % (Manual) Eosinophils % (Manual) Basophils % (Manual) Nucleated RBC % Seg Neutrophils # Seg Neutrophils # Man Lymphocytes # (Manual) Monocytes # (Manual) Eosinophils # (Manual) Basophils # (Manual) PT INR Fibrinogen dRVVT Confirm Interp Factor V Activity POC ABG pH POC ABG pCO2 POC ABG pO2 ABG pO2 ABG HCO3 ABG Base Excess ABG Hemoglobin Oxyhemoglobin Sodium 132 L Potassium 3.3 L Chloride 93.6 L Carbon Dioxide 17 L BUN 59 H Creatinine 2.7 H Glucose 121 H POC Glucose 122 H Lactic Acid Calcium 7.6 L Phosphorus Magnesium Direct Bilirubin AST ALT Alkaline Phosphatase Lactate Dehydrogenase Troponin T C-Reactive Protein Total Protein Albumin Prealbumin Triglycerides Cholesterol LDL Cholesterol Direct HDL Cholesterol Urine pH Urine WBC (Auto) > 182.0 H Urine Creatinine Urine Total Protein Fluid Total Protein Vancomycin Trough Rheumatoid Factor Complement C4 Miscellaneous Test Crossmatch 10/08/16 10/08/16 10/08/16 04:30 05:30 11:51 WBC RBC 5.15 H Hgb 14.4 H D Hct 44.5 H D MCV MCH MCHC RDW 19.5 H Plt Count 56 L Lymph % (Auto) [place] % (Auto) Lymph # [place] # Baso # Seg Neutrophils % Seg Neuts % (Manual) 24.0 L Lymphocytes % (Manual) 8.0 L Monocytes % (Manual) Eosinophils % (Manual) Basophils % (Manual) Nucleated RBC % 9.0 H Seg Neutrophils # Seg Neutrophils # Man Lymphocytes # (Manual) 0.7 L Monocytes # (Manual) Eosinophils # (Manual) Basophils # (Manual) PT INR Fibrinogen dRVVT Confirm Interp Factor V Activity POC ABG pH POC ABG pCO2 POC ABG pO2 ABG pO2 ABG HCO3 ABG Base Excess ABG Hemoglobin Oxyhemoglobin Sodium Potassium Chloride Carbon Dioxide BUN Creatinine Glucose POC Glucose 125 H 150 H Lactic Acid Calcium Phosphorus Magnesium Direct Bilirubin AST ALT Alkaline Phosphatase Lactate Dehydrogenase Troponin T C-Reactive Protein Total Protein Albumin Prealbumin Triglycerides Cholesterol LDL Cholesterol Direct HDL Cholesterol Urine pH Urine WBC (Auto) Urine Creatinine Urine Total Protein Fluid Total Protein Vancomycin Trough Rheumatoid Factor Complement C4 Miscellaneous Test Crossmatch 10/08/16 10/08/16 10/08/16 12:49 17:07 19:30 WBC RBC Hgb 7.1 L D Hct 22.4 L D MCV MCH MCHC RDW Plt Count Lymph % (Auto) [place] % (Auto) Lymph # [place] # Baso # Seg Neutrophils % Seg Neuts % (Manual) Lymphocytes % (Manual) Monocytes % (Manual) Eosinophils % (Manual) Basophils % (Manual) Nucleated RBC % Seg Neutrophils # Seg Neutrophils # Man Lymphocytes # (Manual) Monocytes # (Manual) Eosinophils # (Manual) Basophils # (Manual) PT INR Fibrinogen dRVVT Confirm Interp Factor V Activity POC ABG pH POC ABG pCO2 28.2 L POC ABG pO2 111 H ABG pO2 ABG HCO3 ABG Base Excess ABG Hemoglobin Oxyhemoglobin Sodium Potassium Chloride Carbon Dioxide BUN Creatinine Glucose POC Glucose 145 H Lactic Acid Calcium Phosphorus Magnesium Direct Bilirubin AST ALT Alkaline Phosphatase Lactate Dehydrogenase Troponin T C-Reactive Protein Total Protein Albumin Prealbumin Triglycerides Cholesterol LDL Cholesterol Direct HDL Cholesterol Urine pH Urine WBC (Auto) Urine Creatinine Urine Total Protein Fluid Total Protein Vancomycin Trough Rheumatoid Factor Complement C4 Miscellaneous Test Crossmatch 10/08/16 10/09/16 10/09/16 19:30 03:45 03:45 WBC 12.6 H RBC 2.36 L Hgb 6.7 L Hct 21.1 L MCV MCH MCHC RDW 19.5 H Plt Count 75 L Lymph % (Auto) [place] % (Auto) Lymph # [place] # Baso # Seg Neutrophils % Seg Neuts % (Manual) Lymphocytes % (Manual) Monocytes % (Manual) 10.0 H Eosinophils % (Manual) Basophils % (Manual) Nucleated RBC % 3.0 H Seg Neutrophils # Seg Neutrophils # Man Lymphocytes # (Manual) Monocytes # (Manual) 1.3 H Eosinophils # (Manual) Basophils # (Manual) PT 18.0 H INR 1.41 H Fibrinogen dRVVT Confirm Interp Factor V Activity POC ABG pH POC ABG pCO2 POC ABG pO2 ABG pO2 ABG HCO3 ABG Base Excess ABG Hemoglobin Oxyhemoglobin Sodium 135 L Potassium Chloride Carbon Dioxide 17 L BUN 81 H Creatinine 3.2 H Glucose 109 H POC Glucose Lactic Acid Calcium 7.4 L Phosphorus 4.60 H D Magnesium Direct Bilirubin AST ALT Alkaline Phosphatase Lactate Dehydrogenase Troponin T C-Reactive Protein Total Protein Albumin Prealbumin Triglycerides Cholesterol LDL Cholesterol Direct HDL Cholesterol Urine pH Urine WBC (Auto) Urine Creatinine Urine Total Protein Fluid Total Protein Vancomycin Trough Rheumatoid Factor Complement C4 Miscellaneous Test Crossmatch 10/09/16 10/09/16 10/09/16 03:45 05:14 07:20 WBC RBC Hgb Hct MCV MCH MCHC RDW Plt Count Lymph % (Auto) [place] % (Auto) Lymph # [place] # Baso # Seg Neutrophils % Seg Neuts % (Manual) Lymphocytes % (Manual) Monocytes % (Manual) Eosinophils % (Manual) Basophils % (Manual) Nucleated RBC % Seg Neutrophils # Seg Neutrophils # Man Lymphocytes # (Manual) Monocytes # (Manual) Eosinophils # (Manual) Basophils # (Manual) PT 19.0 H INR 1.51 H Fibrinogen dRVVT Confirm Interp Factor V Activity POC ABG pH POC ABG pCO2 POC ABG pO2 ABG pO2 ABG HCO3 ABG Base Excess ABG Hemoglobin Oxyhemoglobin Sodium Potassium Chloride Carbon Dioxide BUN Creatinine Glucose POC Glucose 151 H Lactic Acid Calcium Phosphorus Magnesium Direct Bilirubin AST ALT Alkaline Phosphatase Lactate Dehydrogenase Troponin T C-Reactive Protein Total Protein Albumin Prealbumin Triglycerides Cholesterol LDL Cholesterol Direct HDL Cholesterol Urine pH Urine WBC (Auto) Urine Creatinine Urine Total Protein Fluid Total Protein Vancomycin Trough Rheumatoid Factor Complement C4 Miscellaneous Test Crossmatch See Detail 10/09/16 10/09/16 10/09/16 11:46 16:20 16:43 WBC RBC Hgb 7.2 L Hct 22.2 L MCV MCH MCHC RDW Plt Count Lymph % (Auto) [place] % (Auto) Lymph # [place] # Baso # Seg Neutrophils % Seg Neuts % (Manual) Lymphocytes % (Manual) Monocytes % (Manual) Eosinophils % (Manual) Basophils % (Manual) Nucleated RBC % Seg Neutrophils # Seg Neutrophils # Man Lymphocytes # (Manual) Monocytes # (Manual) Eosinophils # (Manual) Basophils # (Manual) PT INR Fibrinogen dRVVT Confirm Interp Factor V Activity POC ABG pH POC ABG pCO2 POC ABG pO2 ABG pO2 ABG HCO3 ABG Base Excess ABG Hemoglobin Oxyhemoglobin Sodium Potassium Chloride Carbon Dioxide BUN Creatinine Glucose POC Glucose 133 H 141 H Lactic Acid Calcium Phosphorus Magnesium Direct Bilirubin AST ALT Alkaline Phosphatase Lactate Dehydrogenase Troponin T C-Reactive Protein Total Protein Albumin Prealbumin Triglycerides Cholesterol LDL Cholesterol Direct HDL Cholesterol Urine pH Urine WBC (Auto) Urine Creatinine Urine Total Protein Fluid Total Protein Vancomycin Trough Rheumatoid Factor Complement C4 Miscellaneous Test Crossmatch 10/10/16 10/10/16 10/10/16 05:00 05:00 11:19 WBC 18.5 H RBC 2.19 L Hgb 6.4 L Hct 19.6 L* MCV MCH MCHC RDW 19.3 H Plt Count 93 L Lymph % (Auto) [place] % (Auto) Lymph # [place] # Baso # Seg Neutrophils % Seg Neuts % (Manual) Lymphocytes % (Manual) 10.0 L Monocytes % (Manual) Eosinophils % (Manual) Basophils % (Manual) Nucleated RBC % 4.0 H Seg Neutrophils # Seg Neutrophils # Man 11.3 H Lymphocytes # (Manual) Monocytes # (Manual) Eosinophils # (Manual) Basophils # (Manual) PT INR Fibrinogen dRVVT Confirm Interp Factor V Activity POC ABG pH POC ABG pCO2 POC ABG pO2 ABG pO2 ABG HCO3 ABG Base Excess ABG Hemoglobin Oxyhemoglobin Sodium Potassium 5.7 H D Chloride Carbon Dioxide 16 L BUN 94 H Creatinine 3.1 H Glucose 131 H POC Glucose 153 H Lactic Acid Calcium 8.2 L Phosphorus 5.10 H Magnesium 2.40 H Direct Bilirubin 0.3 H AST ALT < 5 L Alkaline Phosphatase 319 H Lactate Dehydrogenase Troponin T C-Reactive Protein Total Protein 5.1 L Albumin 1.0 L Prealbumin Triglycerides Cholesterol LDL Cholesterol Direct HDL Cholesterol Urine pH Urine WBC (Auto) Urine Creatinine Urine Total Protein Fluid Total Protein Vancomycin Trough Rheumatoid Factor Complement C4 Miscellaneous Test Crossmatch 10/10/16 10/10/16 10/11/16 17:50 23:30 04:15 WBC RBC Hgb Hct MCV MCH MCHC RDW Plt Count Lymph % (Auto) [place] % (Auto) Lymph # [place] # Baso # Seg Neutrophils % Seg Neuts % (Manual) Lymphocytes % (Manual) Monocytes % (Manual) Eosinophils % (Manual) Basophils % (Manual) Nucleated RBC % Seg Neutrophils # Seg Neutrophils # Man Lymphocytes # (Manual) Monocytes # (Manual) Eosinophils # (Manual) Basophils # (Manual) PT INR Fibrinogen dRVVT Confirm Interp Factor V Activity POC ABG pH POC ABG pCO2 POC ABG pO2 ABG pO2 ABG HCO3 ABG Base Excess ABG Hemoglobin Oxyhemoglobin Sodium Potassium Chloride 96.4 L Carbon Dioxide 21 L BUN 57 H Creatinine 2.1 H Glucose 151 H POC Glucose 146 H 141 H Lactic Acid Calcium 8.3 L Phosphorus Magnesium Direct Bilirubin AST ALT Alkaline Phosphatase Lactate Dehydrogenase Troponin T C-Reactive Protein Total Protein Albumin Prealbumin Triglycerides Cholesterol LDL Cholesterol Direct HDL Cholesterol Urine pH Urine WBC (Auto) Urine Creatinine Urine Total Protein Fluid Total Protein Vancomycin Trough Rheumatoid Factor Complement C4 Miscellaneous Test Crossmatch 10/11/16 10/11/16 10/11/16 04:15 04:15 05:30 WBC 28.3 H RBC 3.12 L Hgb 9.3 L Hct 28.7 L D MCV MCH MCHC RDW 17.7 H Plt Count 128 L Lymph % (Auto) [place] % (Auto) Lymph # [place] # Baso # Seg Neutrophils % Seg Neuts % (Manual) Lymphocytes % (Manual) Monocytes % (Manual) Eosinophils % (Manual) Basophils % (Manual) Nucleated RBC % Seg Neutrophils # Seg Neutrophils # Man Lymphocytes # (Manual) Monocytes # (Manual) Eosinophils # (Manual) Basophils # (Manual) PT INR Fibrinogen dRVVT Confirm Interp Factor V Activity POC ABG pH POC ABG pCO2 POC ABG pO2 ABG pO2 ABG HCO3 ABG Base Excess ABG Hemoglobin Oxyhemoglobin Sodium Potassium Chloride Carbon Dioxide BUN Creatinine Glucose POC Glucose 167 H Lactic Acid Calcium Phosphorus Magnesium Direct Bilirubin AST ALT Alkaline Phosphatase Lactate Dehydrogenase Troponin T C-Reactive Protein 15.80 H Total Protein Albumin Prealbumin Triglycerides Cholesterol LDL Cholesterol Direct HDL Cholesterol Urine pH Urine WBC (Auto) Urine Creatinine Urine Total Protein Fluid Total Protein Vancomycin Trough Rheumatoid Factor Complement C4 Miscellaneous Test Crossmatch 10/11/16 10/11/16 10/11/16 11:40 15:49 23:57 WBC RBC Hgb Hct MCV MCH MCHC RDW Plt Count Lymph % (Auto) [place] % (Auto) Lymph # [place] # Baso # Seg Neutrophils % Seg Neuts % (Manual) Lymphocytes % (Manual) Monocytes % (Manual) Eosinophils % (Manual) Basophils % (Manual) Nucleated RBC % Seg Neutrophils # Seg Neutrophils # Man Lymphocytes # (Manual) Monocytes # (Manual) Eosinophils # (Manual) Basophils # (Manual) PT INR Fibrinogen dRVVT Confirm Interp Factor V Activity POC ABG pH POC ABG pCO2 POC ABG pO2 ABG pO2 ABG HCO3 ABG Base Excess ABG Hemoglobin Oxyhemoglobin Sodium Potassium Chloride Carbon Dioxide BUN Creatinine Glucose POC Glucose 139 H 168 H 161 H Lactic Acid Calcium Phosphorus Magnesium Direct Bilirubin AST ALT Alkaline Phosphatase Lactate Dehydrogenase Troponin T C-Reactive Protein Total Protein Albumin Prealbumin Triglycerides Cholesterol LDL Cholesterol Direct HDL Cholesterol Urine pH Urine WBC (Auto) Urine Creatinine Urine Total Protein Fluid Total Protein Vancomycin Trough Rheumatoid Factor Complement C4 Miscellaneous Test Crossmatch 10/12/16 10/12/16 10/12/16 04:40 04:40 05:44 WBC 22.5 H RBC 2.88 L Hgb 8.8 L Hct 26.8 L MCV MCH MCHC RDW 17.8 H Plt Count Lymph % (Auto) [place] % (Auto) Lymph # [place] # Baso # Seg Neutrophils % Seg Neuts % (Manual) Lymphocytes % (Manual) Monocytes % (Manual) Eosinophils % (Manual) Basophils % (Manual) Nucleated RBC % Seg Neutrophils # Seg Neutrophils # Man Lymphocytes # (Manual) Monocytes # (Manual) Eosinophils # (Manual) Basophils # (Manual) PT INR Fibrinogen dRVVT Confirm Interp Factor V Activity POC ABG pH POC ABG pCO2 POC ABG pO2 ABG pO2 ABG HCO3 ABG Base Excess ABG Hemoglobin Oxyhemoglobin Sodium 134 L Potassium Chloride 93.0 L Carbon Dioxide BUN 74 H Creatinine 2.5 H Glucose 137 H POC Glucose 158 H Lactic Acid Calcium 8.2 L Phosphorus Magnesium Direct Bilirubin AST ALT Alkaline Phosphatase Lactate Dehydrogenase Troponin T C-Reactive Protein Total Protein Albumin Prealbumin Triglycerides Cholesterol LDL Cholesterol Direct HDL Cholesterol Urine pH Urine WBC (Auto) Urine Creatinine Urine Total Protein Fluid Total Protein Vancomycin Trough Rheumatoid Factor Complement C4 Miscellaneous Test Crossmatch 10/12/16 10/12/16 10/12/16 12:27 18:18 23:46 WBC RBC Hgb Hct MCV MCH MCHC RDW Plt Count Lymph % (Auto) [place] % (Auto) Lymph # [place] # Baso # Seg Neutrophils % Seg Neuts % (Manual) Lymphocytes % (Manual) Monocytes % (Manual) Eosinophils % (Manual) Basophils % (Manual) Nucleated RBC % Seg Neutrophils # Seg Neutrophils # Man Lymphocytes # (Manual) Monocytes # (Manual) Eosinophils # (Manual) Basophils # (Manual) PT INR Fibrinogen dRVVT Confirm Interp Factor V Activity POC ABG pH POC ABG pCO2 POC ABG pO2 ABG pO2 ABG HCO3 ABG Base Excess ABG Hemoglobin Oxyhemoglobin Sodium Potassium Chloride Carbon Dioxide BUN Creatinine Glucose POC Glucose 153 H 140 H 150 H Lactic Acid Calcium Phosphorus Magnesium Direct Bilirubin AST ALT Alkaline Phosphatase Lactate Dehydrogenase Troponin T C-Reactive Protein Total Protein Albumin Prealbumin Triglycerides Cholesterol LDL Cholesterol Direct HDL Cholesterol Urine pH Urine WBC (Auto) Urine Creatinine Urine Total Protein Fluid Total Protein Vancomycin Trough Rheumatoid Factor Complement C4 Miscellaneous Test Crossmatch 10/13/16 10/13/16 10/13/16 06:22 09:20 12:29 WBC RBC Hgb Hct MCV MCH MCHC RDW Plt Count Lymph % (Auto) [place] % (Auto) Lymph # [place] # Baso # Seg Neutrophils % Seg Neuts % (Manual) Lymphocytes % (Manual) Monocytes % (Manual) Eosinophils % (Manual) Basophils % (Manual) Nucleated RBC % Seg Neutrophils # Seg Neutrophils # Man Lymphocytes # (Manual) Monocytes # (Manual) Eosinophils # (Manual) Basophils # (Manual) PT INR Fibrinogen dRVVT Confirm Interp Factor V Activity POC ABG pH POC ABG pCO2 POC ABG pO2 ABG pO2 ABG HCO3 ABG Base Excess ABG Hemoglobin Oxyhemoglobin Sodium Potassium Chloride Carbon Dioxide BUN Creatinine Glucose POC Glucose 165 H 193 H Lactic Acid Calcium Phosphorus Magnesium Direct Bilirubin AST ALT Alkaline Phosphatase Lactate Dehydrogenase Troponin T C-Reactive Protein Total Protein Albumin Prealbumin Triglycerides Cholesterol LDL Cholesterol Direct HDL Cholesterol Urine pH Urine WBC (Auto) Urine Creatinine Urine Total Protein Fluid Total Protein Vancomycin Trough Rheumatoid Factor Complement C4 Miscellaneous Test Flexitest 1 H Crossmatch 10/13/16 10/13/16 10/13/16 18:09 Unknown Unknown WBC 23.4 H RBC 2.83 L Hgb 8.7 L Hct 26.1 L MCV MCH MCHC RDW 18.1 H Plt Count Lymph % (Auto) [place] % (Auto) Lymph # [place] # Baso # Seg Neutrophils % Seg Neuts % (Manual) Lymphocytes % (Manual) Monocytes % (Manual) Eosinophils % (Manual) Basophils % (Manual) Nucleated RBC % Seg Neutrophils # Seg Neutrophils # Man Lymphocytes # (Manual) Monocytes # (Manual) Eosinophils # (Manual) Basophils # (Manual) PT INR Fibrinogen dRVVT Confirm Interp Factor V Activity POC ABG pH POC ABG pCO2 POC ABG pO2 ABG pO2 ABG HCO3 ABG Base Excess ABG Hemoglobin Oxyhemoglobin Sodium Potassium Chloride 95.8 L Carbon Dioxide BUN 82 H Creatinine 2.6 H Glucose 152 H POC Glucose 166 H Lactic Acid Calcium Phosphorus Magnesium Direct Bilirubin AST ALT Alkaline Phosphatase Lactate Dehydrogenase Troponin T C-Reactive Protein Total Protein Albumin Prealbumin Triglycerides Cholesterol LDL Cholesterol Direct HDL Cholesterol Urine pH Urine WBC (Auto) Urine Creatinine Urine Total Protein Fluid Total Protein Vancomycin Trough Rheumatoid Factor Complement C4 Miscellaneous Test Crossmatch 10/14/16 10/14/16 10/14/16 05:38 06:35 08:10 WBC 20.7 H RBC 2.81 L Hgb 8.4 L Hct 27.2 L MCV MCH MCHC RDW 19.4 H Plt Count Lymph % (Auto) [place] % (Auto) Lymph # [place] # Baso # Seg Neutrophils % Seg Neuts % (Manual) Lymphocytes % (Manual) Monocytes % (Manual) Eosinophils % (Manual) Basophils % (Manual) Nucleated RBC % Seg Neutrophils # Seg Neutrophils # Man Lymphocytes # (Manual) Monocytes # (Manual) Eosinophils # (Manual) Basophils # (Manual) PT INR Fibrinogen dRVVT Confirm Interp Factor V Activity POC ABG pH POC ABG pCO2 POC ABG pO2 ABG pO2 ABG HCO3 ABG Base Excess ABG Hemoglobin Oxyhemoglobin Sodium Potassium Chloride Carbon Dioxide BUN 58 H Creatinine 1.9 H Glucose 169 H POC Glucose 195 H Lactic Acid Calcium Phosphorus Magnesium Direct Bilirubin AST ALT Alkaline Phosphatase Lactate Dehydrogenase Troponin T C-Reactive Protein Total Protein Albumin Prealbumin Triglycerides Cholesterol LDL Cholesterol Direct HDL Cholesterol Urine pH Urine WBC (Auto) Urine Creatinine Urine Total Protein Fluid Total Protein Vancomycin Trough Rheumatoid Factor Complement C4 Miscellaneous Test Crossmatch 10/14/16 10/14/16 10/14/16 11:44 17:13 23:28 WBC RBC Hgb Hct MCV MCH MCHC RDW Plt Count Lymph % (Auto) [place] % (Auto) Lymph # [place] # Baso # Seg Neutrophils % Seg Neuts % (Manual) Lymphocytes % (Manual) Monocytes % (Manual) Eosinophils % (Manual) Basophils % (Manual) Nucleated RBC % Seg Neutrophils # Seg Neutrophils # Man Lymphocytes # (Manual) Monocytes # (Manual) Eosinophils # (Manual) Basophils # (Manual) PT INR Fibrinogen dRVVT Confirm Interp Factor V Activity POC ABG pH POC ABG pCO2 POC ABG pO2 ABG pO2 ABG HCO3 ABG Base Excess ABG Hemoglobin Oxyhemoglobin Sodium Potassium Chloride Carbon Dioxide BUN Creatinine Glucose POC Glucose 174 H 121 H 151 H Lactic Acid Calcium Phosphorus Magnesium Direct Bilirubin AST ALT Alkaline Phosphatase Lactate Dehydrogenase Troponin T C-Reactive Protein Total Protein Albumin Prealbumin Triglycerides Cholesterol LDL Cholesterol Direct HDL Cholesterol Urine pH Urine WBC (Auto) Urine Creatinine Urine Total Protein Fluid Total Protein Vancomycin Trough Rheumatoid Factor Complement C4 Miscellaneous Test Crossmatch 10/15/16 10/15/16 10/15/16 05:06 12:26 17:48 WBC RBC Hgb Hct MCV MCH MCHC RDW Plt Count Lymph % (Auto) [place] % (Auto) Lymph # [place] # Baso # Seg Neutrophils % Seg Neuts % (Manual) Lymphocytes % (Manual) Monocytes % (Manual) Eosinophils % (Manual) Basophils % (Manual) Nucleated RBC % Seg Neutrophils # Seg Neutrophils # Man Lymphocytes # (Manual) Monocytes # (Manual) Eosinophils # (Manual) Basophils # (Manual) PT INR Fibrinogen dRVVT Confirm Interp Factor V Activity POC ABG pH POC ABG pCO2 POC ABG pO2 ABG pO2 ABG HCO3 ABG Base Excess ABG Hemoglobin Oxyhemoglobin Sodium Potassium Chloride Carbon Dioxide BUN Creatinine Glucose POC Glucose 151 H 149 H 153 H Lactic Acid Calcium Phosphorus Magnesium Direct Bilirubin AST ALT Alkaline Phosphatase Lactate Dehydrogenase Troponin T C-Reactive Protein Total Protein Albumin Prealbumin Triglycerides Cholesterol LDL Cholesterol Direct HDL Cholesterol Urine pH Urine WBC (Auto) Urine Creatinine Urine Total Protein Fluid Total Protein Vancomycin Trough Rheumatoid Factor Complement C4 Miscellaneous Test Crossmatch 10/15/16 10/15/16 10/16/16 Unknown Unknown 00:02 WBC 23.4 H RBC 2.78 L Hgb 8.5 L Hct 25.7 L MCV MCH MCHC RDW 18.7 H Plt Count Lymph % (Auto) [place] % (Auto) Lymph # [place] # Baso # Seg Neutrophils % Seg Neuts % (Manual) Lymphocytes % (Manual) Monocytes % (Manual) Eosinophils % (Manual) Basophils % (Manual) Nucleated RBC % Seg Neutrophils # Seg Neutrophils # Man Lymphocytes # (Manual) Monocytes # (Manual) Eosinophils # (Manual) Basophils # (Manual) PT INR Fibrinogen dRVVT Confirm Interp Factor V Activity POC ABG pH POC ABG pCO2 POC ABG pO2 ABG pO2 ABG HCO3 ABG Base Excess ABG Hemoglobin Oxyhemoglobin Sodium Potassium Chloride Carbon Dioxide BUN 73 H Creatinine 2.3 H Glucose 120 H POC Glucose 137 H Lactic Acid Calcium Phosphorus Magnesium Direct Bilirubin AST ALT Alkaline Phosphatase Lactate Dehydrogenase Troponin T C-Reactive Protein Total Protein Albumin Prealbumin Triglycerides Cholesterol LDL Cholesterol Direct HDL Cholesterol Urine pH Urine WBC (Auto) Urine Creatinine Urine Total Protein Fluid Total Protein Vancomycin Trough Rheumatoid Factor Complement C4 Miscellaneous Test Crossmatch 10/16/16 10/16/16 10/16/16 05:44 06:25 06:25 WBC 22.5 H RBC 2.76 L Hgb 8.3 L Hct 25.2 L MCV MCH MCHC RDW 18.3 H Plt Count Lymph % (Auto) [place] % (Auto) Lymph # [place] # Baso # Seg Neutrophils % Seg Neuts % (Manual) Lymphocytes % (Manual) Monocytes % (Manual) Eosinophils % (Manual) Basophils % (Manual) Nucleated RBC % Seg Neutrophils # Seg Neutrophils # Man Lymphocytes # (Manual) Monocytes # (Manual) Eosinophils # (Manual) Basophils # (Manual) PT INR Fibrinogen dRVVT Confirm Interp Factor V Activity POC ABG pH POC ABG pCO2 POC ABG pO2 ABG pO2 ABG HCO3 ABG Base Excess ABG Hemoglobin Oxyhemoglobin Sodium Potassium Chloride Carbon Dioxide BUN 92 H Creatinine 3.0 H Glucose 138 H POC Glucose 110 H Lactic Acid Calcium Phosphorus Magnesium Direct Bilirubin AST ALT Alkaline Phosphatase Lactate Dehydrogenase Troponin T C-Reactive Protein Total Protein Albumin Prealbumin Triglycerides Cholesterol LDL Cholesterol Direct HDL Cholesterol Urine pH Urine WBC (Auto) Urine Creatinine Urine Total Protein Fluid Total Protein Vancomycin Trough Rheumatoid Factor Complement C4 Miscellaneous Test Crossmatch 10/16/16 10/16/16 10/16/16 11:27 11:48 17:36 WBC RBC Hgb Hct MCV MCH MCHC RDW Plt Count Lymph % (Auto) [place] % (Auto) Lymph # [place] # Baso # Seg Neutrophils % Seg Neuts % (Manual) Lymphocytes % (Manual) Monocytes % (Manual) Eosinophils % (Manual) Basophils % (Manual) Nucleated RBC % Seg Neutrophils # Seg Neutrophils # Man Lymphocytes # (Manual) Monocytes # (Manual) Eosinophils # (Manual) Basophils # (Manual) PT INR Fibrinogen dRVVT Confirm Interp Factor V Activity POC ABG pH 7.582 H POC ABG pCO2 27.4 L POC ABG pO2 110 H ABG pO2 ABG HCO3 ABG Base Excess ABG Hemoglobin Oxyhemoglobin Sodium Potassium Chloride Carbon Dioxide BUN Creatinine Glucose POC Glucose 121 H 133 H Lactic Acid Calcium Phosphorus Magnesium Direct Bilirubin AST ALT Alkaline Phosphatase Lactate Dehydrogenase Troponin T C-Reactive Protein Total Protein Albumin Prealbumin Triglycerides Cholesterol LDL Cholesterol Direct HDL Cholesterol Urine pH Urine WBC (Auto) Urine Creatinine Urine Total Protein Fluid Total Protein Vancomycin Trough Rheumatoid Factor Complement C4 Miscellaneous Test Crossmatch 10/16/16 10/17/16 10/17/16 20:48 04:24 04:24 WBC 21.4 H RBC 2.72 L Hgb 8.0 L Hct 25.2 L MCV MCH MCHC RDW 18.0 H Plt Count Lymph % (Auto) [place] % (Auto) Lymph # [place] # Baso # Seg Neutrophils % Seg Neuts % (Manual) Lymphocytes % (Manual) Monocytes % (Manual) Eosinophils % (Manual) Basophils % (Manual) Nucleated RBC % Seg Neutrophils # Seg Neutrophils # Man Lymphocytes # (Manual) Monocytes # (Manual) Eosinophils # (Manual) Basophils # (Manual) PT INR Fibrinogen dRVVT Confirm Interp Factor V Activity POC ABG pH 7.561 H POC ABG pCO2 24.4 L POC ABG pO2 77 L ABG pO2 ABG HCO3 ABG Base Excess ABG Hemoglobin Oxyhemoglobin Sodium 148 H Potassium Chloride Carbon Dioxide BUN 104 H Creatinine 3.0 H Glucose 149 H POC Glucose Lactic Acid Calcium Phosphorus Magnesium Direct Bilirubin AST ALT Alkaline Phosphatase 138 H Lactate Dehydrogenase Troponin T C-Reactive Protein Total Protein 6.2 L Albumin 1.5 L Prealbumin Triglycerides Cholesterol LDL Cholesterol Direct HDL Cholesterol Urine pH Urine WBC (Auto) Urine Creatinine Urine Total Protein Fluid Total Protein Vancomycin Trough Rheumatoid Factor Complement C4 Miscellaneous Test Crossmatch 10/17/16 10/17/16 10/17/16 06:02 12:17 17:14 WBC RBC Hgb Hct MCV MCH MCHC RDW Plt Count Lymph % (Auto) [place] % (Auto) Lymph # [place] # Baso # Seg Neutrophils % Seg Neuts % (Manual) Lymphocytes % (Manual) Monocytes % (Manual) Eosinophils % (Manual) Basophils % (Manual) Nucleated RBC % Seg Neutrophils # Seg Neutrophils # Man Lymphocytes # (Manual) Monocytes # (Manual) Eosinophils # (Manual) Basophils # (Manual) PT INR Fibrinogen dRVVT Confirm Interp Factor V Activity POC ABG pH POC ABG pCO2 POC ABG pO2 ABG pO2 ABG HCO3 ABG Base Excess ABG Hemoglobin Oxyhemoglobin Sodium Potassium Chloride Carbon Dioxide BUN Creatinine Glucose POC Glucose 170 H 167 H 126 H Lactic Acid Calcium Phosphorus Magnesium Direct Bilirubin AST ALT Alkaline Phosphatase Lactate Dehydrogenase Troponin T C-Reactive Protein Total Protein Albumin Prealbumin Triglycerides Cholesterol LDL Cholesterol Direct HDL Cholesterol Urine pH Urine WBC (Auto) Urine Creatinine Urine Total Protein Fluid Total Protein Vancomycin Trough Rheumatoid Factor Complement C4 Miscellaneous Test Crossmatch 10/17/16 10/18/16 10/18/16 23:17 04:00 04:00 WBC 20.7 H RBC 2.47 L Hgb 7.4 L Hct 22.9 L MCV MCH MCHC RDW 17.5 H Plt Count Lymph % (Auto) [place] % (Auto) Lymph # [place] # Baso # Seg Neutrophils % Seg Neuts % (Manual) Lymphocytes % (Manual) Monocytes % (Manual) Eosinophils % (Manual) Basophils % (Manual) Nucleated RBC % Seg Neutrophils # Seg Neutrophils # Man Lymphocytes # (Manual) Monocytes # (Manual) Eosinophils # (Manual) Basophils # (Manual) PT INR Fibrinogen dRVVT Confirm Interp Factor V Activity POC ABG pH POC ABG pCO2 POC ABG pO2 ABG pO2 ABG HCO3 ABG Base Excess ABG Hemoglobin Oxyhemoglobin Sodium 149 H Potassium Chloride 107.9 H Carbon Dioxide 20 L BUN 117 H Creatinine 3.2 H Glucose 119 H POC Glucose 121 H Lactic Acid Calcium Phosphorus Magnesium Direct Bilirubin AST ALT Alkaline Phosphatase Lactate Dehydrogenase Troponin T C-Reactive Protein Total Protein Albumin Prealbumin Triglycerides Cholesterol LDL Cholesterol Direct HDL Cholesterol Urine pH Urine WBC (Auto) Urine Creatinine Urine Total Protein Fluid Total Protein Vancomycin Trough Rheumatoid Factor Complement C4 Miscellaneous Test Crossmatch 10/18/16 10/18/16 10/18/16 05:23 10:46 17:30 WBC RBC Hgb Hct MCV MCH MCHC RDW Plt Count Lymph % (Auto) [place] % (Auto) Lymph # [place] # Baso # Seg Neutrophils % Seg Neuts % (Manual) Lymphocytes % (Manual) Monocytes % (Manual) Eosinophils % (Manual) Basophils % (Manual) Nucleated RBC % Seg Neutrophils # Seg Neutrophils # Man Lymphocytes # (Manual) Monocytes # (Manual) Eosinophils # (Manual) Basophils # (Manual) PT INR Fibrinogen dRVVT Confirm Interp Factor V Activity POC ABG pH POC ABG pCO2 POC ABG pO2 ABG pO2 ABG HCO3 ABG Base Excess ABG Hemoglobin Oxyhemoglobin Sodium Potassium Chloride Carbon Dioxide BUN Creatinine Glucose POC Glucose 119 H 155 H 124 H Lactic Acid Calcium Phosphorus Magnesium Direct Bilirubin AST ALT Alkaline Phosphatase Lactate Dehydrogenase Troponin T C-Reactive Protein Total Protein Albumin Prealbumin Triglycerides Cholesterol LDL Cholesterol Direct HDL Cholesterol Urine pH Urine WBC (Auto) Urine Creatinine Urine Total Protein Fluid Total Protein Vancomycin Trough Rheumatoid Factor Complement C4 Miscellaneous Test Crossmatch 10/19/16 10/19/16 10/19/16 04:00 04:00 05:25 WBC 17.4 H RBC 2.54 L Hgb 7.7 L Hct 23.6 L MCV MCH MCHC RDW 17.3 H Plt Count Lymph % (Auto) [place] % (Auto) Lymph # [place] # Baso # Seg Neutrophils % Seg Neuts % (Manual) Lymphocytes % (Manual) Monocytes % (Manual) Eosinophils % (Manual) Basophils % (Manual) Nucleated RBC % Seg Neutrophils # Seg Neutrophils # Man Lymphocytes # (Manual) Monocytes # (Manual) Eosinophils # (Manual) Basophils # (Manual) PT INR Fibrinogen dRVVT Confirm Interp Factor V Activity POC ABG pH POC ABG pCO2 POC ABG pO2 ABG pO2 ABG HCO3 ABG Base Excess ABG Hemoglobin Oxyhemoglobin Sodium Potassium Chloride Carbon Dioxide BUN 72 H Creatinine 2.1 H Glucose 116 H POC Glucose 119 H Lactic Acid Calcium Phosphorus Magnesium Direct Bilirubin AST ALT Alkaline Phosphatase Lactate Dehydrogenase Troponin T C-Reactive Protein Total Protein Albumin Prealbumin Triglycerides Cholesterol LDL Cholesterol Direct HDL Cholesterol Urine pH Urine WBC (Auto) Urine Creatinine Urine Total Protein Fluid Total Protein Vancomycin Trough Rheumatoid Factor Complement C4 Miscellaneous Test Crossmatch 10/19/16 10/19/16 10/20/16 11:46 23:59 06:00 WBC RBC Hgb Hct MCV MCH MCHC RDW Plt Count Lymph % (Auto) [place] % (Auto) Lymph # [place] # Baso # Seg Neutrophils % Seg Neuts % (Manual) Lymphocytes % (Manual) Monocytes % (Manual) Eosinophils % (Manual) Basophils % (Manual) Nucleated RBC % Seg Neutrophils # Seg Neutrophils # Man Lymphocytes # (Manual) Monocytes # (Manual) Eosinophils # (Manual) Basophils # (Manual) PT INR Fibrinogen dRVVT Confirm Interp Factor V Activity POC ABG pH POC ABG pCO2 POC ABG pO2 ABG pO2 ABG HCO3 ABG Base Excess ABG Hemoglobin Oxyhemoglobin Sodium Potassium Chloride Carbon Dioxide 17 L BUN 94 H Creatinine 2.7 H Glucose POC Glucose 116 H 117 H Lactic Acid Calcium Phosphorus Magnesium Direct Bilirubin AST ALT Alkaline Phosphatase Lactate Dehydrogenase Troponin T C-Reactive Protein Total Protein Albumin Prealbumin Triglycerides Cholesterol LDL Cholesterol Direct HDL Cholesterol Urine pH Urine WBC (Auto) Urine Creatinine Urine Total Protein Fluid Total Protein Vancomycin Trough Rheumatoid Factor Complement C4 Miscellaneous Test Crossmatch 10/20/16 10/20/16 10/20/16 06:00 11:49 16:00 WBC 19.7 H RBC 2.51 L Hgb 7.7 L Hct 23.5 L MCV MCH MCHC RDW 17.5 H Plt Count Lymph % (Auto) [place] % (Auto) Lymph # [place] # Baso # Seg Neutrophils % Seg Neuts % (Manual) Lymphocytes % (Manual) Monocytes % (Manual) Eosinophils % (Manual) Basophils % (Manual) Nucleated RBC % Seg Neutrophils # Seg Neutrophils # Man Lymphocytes # (Manual) Monocytes # (Manual) Eosinophils # (Manual) Basophils # (Manual) PT INR Fibrinogen dRVVT Confirm Interp Factor V Activity POC ABG pH POC ABG pCO2 POC ABG pO2 ABG pO2 ABG HCO3 ABG Base Excess ABG Hemoglobin Oxyhemoglobin Sodium Potassium Chloride Carbon Dioxide BUN Creatinine Glucose POC Glucose 117 H Lactic Acid Calcium Phosphorus Magnesium Direct Bilirubin AST ALT Alkaline Phosphatase Lactate Dehydrogenase Troponin T C-Reactive Protein Total Protein Albumin Prealbumin Triglycerides Cholesterol LDL Cholesterol Direct HDL Cholesterol Urine pH Urine WBC (Auto) Urine Creatinine Urine Total Protein Fluid Total Protein Vancomycin Trough Rheumatoid Factor Complement C4 Miscellaneous Test Flexitest 1 H Crossmatch 10/20/16 10/20/16 10/21/16 18:36 23:39 04:00 WBC RBC Hgb Hct MCV MCH MCHC RDW Plt Count Lymph % (Auto) [place] % (Auto) Lymph # [place] # Baso # Seg Neutrophils % Seg Neuts % (Manual) Lymphocytes % (Manual) Monocytes % (Manual) Eosinophils % (Manual) Basophils % (Manual) Nucleated RBC % Seg Neutrophils # Seg Neutrophils # Man Lymphocytes # (Manual) Monocytes # (Manual) Eosinophils # (Manual) Basophils # (Manual) PT INR Fibrinogen dRVVT Confirm Interp Factor V Activity POC ABG pH POC ABG pCO2 POC ABG pO2 ABG pO2 ABG HCO3 ABG Base Excess ABG Hemoglobin Oxyhemoglobin Sodium Potassium 5.4 H D Chloride Carbon Dioxide 15 L BUN 110 H Creatinine 3.0 H Glucose POC Glucose 127 H 114 H Lactic Acid Calcium Phosphorus Magnesium Direct Bilirubin AST ALT Alkaline Phosphatase Lactate Dehydrogenase Troponin T C-Reactive Protein Total Protein Albumin Prealbumin Triglycerides Cholesterol LDL Cholesterol Direct HDL Cholesterol Urine pH Urine WBC (Auto) Urine Creatinine Urine Total Protein Fluid Total Protein Vancomycin Trough Rheumatoid Factor Complement C4 Miscellaneous Test Crossmatch 10/21/16 10/21/16 10/22/16 05:54 23:46 05:18 WBC RBC Hgb Hct MCV MCH MCHC RDW Plt Count Lymph % (Auto) [place] % (Auto) Lymph # [place] # Baso # Seg Neutrophils % Seg Neuts % (Manual) Lymphocytes % (Manual) Monocytes % (Manual) Eosinophils % (Manual) Basophils % (Manual) Nucleated RBC % Seg Neutrophils # Seg Neutrophils # Man Lymphocytes # (Manual) Monocytes # (Manual) Eosinophils # (Manual) Basophils # (Manual) PT INR Fibrinogen dRVVT Confirm Interp Factor V Activity POC ABG pH POC ABG pCO2 POC ABG pO2 ABG pO2 ABG HCO3 ABG Base Excess ABG Hemoglobin Oxyhemoglobin Sodium Potassium Chloride Carbon Dioxide BUN Creatinine Glucose POC Glucose 119 H 108 H 109 H Lactic Acid Calcium Phosphorus Magnesium Direct Bilirubin AST ALT Alkaline Phosphatase Lactate Dehydrogenase Troponin T C-Reactive Protein Total Protein Albumin Prealbumin Triglycerides Cholesterol LDL Cholesterol Direct HDL Cholesterol Urine pH Urine WBC (Auto) Urine Creatinine Urine Total Protein Fluid Total Protein Vancomycin Trough Rheumatoid Factor Complement C4 Miscellaneous Test Crossmatch 10/22/16 10/22/16 10/22/16 06:40 06:40 06:40 WBC 14.0 H RBC 2.03 L Hgb 7.0 L Hct 20.5 L MCV 98 H MCH 34 H MCHC 35 H RDW 17.8 H Plt Count Lymph % (Auto) [place] % (Auto) 9.9 H Lymph # [place] # 1.4 H Baso # 0.2 H Seg Neutrophils % 72.0 H Seg Neuts % (Manual) Lymphocytes % (Manual) Monocytes % (Manual) Eosinophils % (Manual) Basophils % (Manual) Nucleated RBC % Seg Neutrophils # 10.0 H Seg Neutrophils # Man Lymphocytes # (Manual) Monocytes # (Manual) Eosinophils # (Manual) Basophils # (Manual) PT INR Fibrinogen dRVVT Confirm Interp Factor V Activity POC ABG pH POC ABG pCO2 POC ABG pO2 ABG pO2 ABG HCO3 ABG Base Excess ABG Hemoglobin Oxyhemoglobin Sodium 130 L D Potassium Chloride 92.4 L Carbon Dioxide 20 L BUN 50 H Creatinine 1.6 H Glucose 589 H* POC Glucose Lactic Acid Calcium 7.8 L D Phosphorus Magnesium 1.60 L Direct Bilirubin AST ALT Alkaline Phosphatase Lactate Dehydrogenase Troponin T C-Reactive Protein Total Protein Albumin Prealbumin Triglycerides Cholesterol LDL Cholesterol Direct HDL Cholesterol Urine pH Urine WBC (Auto) Urine Creatinine Urine Total Protein Fluid Total Protein Vancomycin Trough Rheumatoid Factor Complement C4 Miscellaneous Test Crossmatch 10/22/16 10/22/16 10/22/16 11:39 16:44 23:36 WBC RBC Hgb Hct MCV MCH MCHC RDW Plt Count Lymph % (Auto) [place] % (Auto) Lymph # [place] # Baso # Seg Neutrophils % Seg Neuts % (Manual) Lymphocytes % (Manual) Monocytes % (Manual) Eosinophils % (Manual) Basophils % (Manual) Nucleated RBC % Seg Neutrophils # Seg Neutrophils # Man Lymphocytes # (Manual) Monocytes # (Manual) Eosinophils # (Manual) Basophils # (Manual) PT INR Fibrinogen dRVVT Confirm Interp Factor V Activity POC ABG pH POC ABG pCO2 POC ABG pO2 ABG pO2 ABG HCO3 ABG Base Excess ABG Hemoglobin Oxyhemoglobin Sodium Potassium Chloride Carbon Dioxide BUN Creatinine Glucose POC Glucose 142 H 163 H 123 H Lactic Acid Calcium Phosphorus Magnesium Direct Bilirubin AST ALT Alkaline Phosphatase Lactate Dehydrogenase Troponin T C-Reactive Protein Total Protein Albumin Prealbumin Triglycerides Cholesterol LDL Cholesterol Direct HDL Cholesterol Urine pH Urine WBC (Auto) Urine Creatinine Urine Total Protein Fluid Total Protein Vancomycin Trough Rheumatoid Factor Complement C4 Miscellaneous Test Crossmatch 10/23/16 10/23/16 10/23/16 04:58 06:00 12:12 WBC RBC Hgb Hct MCV MCH MCHC RDW Plt Count Lymph % (Auto) [place] % (Auto) Lymph # [place] # Baso # Seg Neutrophils % Seg Neuts % (Manual) Lymphocytes % (Manual) Monocytes % (Manual) Eosinophils % (Manual) Basophils % (Manual) Nucleated RBC % Seg Neutrophils # Seg Neutrophils # Man Lymphocytes # (Manual) Monocytes # (Manual) Eosinophils # (Manual) Basophils # (Manual) PT INR Fibrinogen dRVVT Confirm Interp Factor V Activity POC ABG pH POC ABG pCO2 POC ABG pO2 ABG pO2 ABG HCO3 ABG Base Excess ABG Hemoglobin Oxyhemoglobin Sodium 133 L Potassium 3.5 L Chloride 96.1 L Carbon Dioxide 18 L BUN 76 H Creatinine 2.1 H Glucose POC Glucose 133 H 138 H Lactic Acid Calcium 8.3 L Phosphorus Magnesium Direct Bilirubin AST ALT Alkaline Phosphatase Lactate Dehydrogenase Troponin T C-Reactive Protein Total Protein Albumin Prealbumin Triglycerides Cholesterol LDL Cholesterol Direct HDL Cholesterol Urine pH Urine WBC (Auto) Urine Creatinine Urine Total Protein Fluid Total Protein Vancomycin Trough Rheumatoid Factor Complement C4 Miscellaneous Test Crossmatch 10/23/16 10/23/16 10/24/16 16:53 23:37 04:00 WBC RBC Hgb Hct MCV MCH MCHC RDW Plt Count Lymph % (Auto) [place] % (Auto) Lymph # [place] # Baso # Seg Neutrophils % Seg Neuts % (Manual) Lymphocytes % (Manual) Monocytes % (Manual) Eosinophils % (Manual) Basophils % (Manual) Nucleated RBC % Seg Neutrophils # Seg Neutrophils # Man Lymphocytes # (Manual) Monocytes # (Manual) Eosinophils # (Manual) Basophils # (Manual) PT INR Fibrinogen dRVVT Confirm Interp Factor V Activity POC ABG pH POC ABG pCO2 POC ABG pO2 ABG pO2 ABG HCO3 ABG Base Excess ABG Hemoglobin Oxyhemoglobin Sodium 131 L Potassium Chloride 94.5 L Carbon Dioxide 19 L BUN 97 H Creatinine 2.6 H Glucose 110 H POC Glucose 125 H 123 H Lactic Acid Calcium 8.3 L Phosphorus Magnesium Direct Bilirubin AST ALT Alkaline Phosphatase Lactate Dehydrogenase Troponin T C-Reactive Protein Total Protein Albumin Prealbumin Triglycerides Cholesterol LDL Cholesterol Direct HDL Cholesterol Urine pH Urine WBC (Auto) Urine Creatinine Urine Total Protein Fluid Total Protein Vancomycin Trough Rheumatoid Factor Complement C4 Miscellaneous Test Crossmatch 10/24/16 10/24/16 10/24/16 07:49 11:39 17:52 WBC RBC Hgb 6.0 L Hct 19.7 L* MCV MCH MCHC RDW Plt Count Lymph % (Auto) [place] % (Auto) Lymph # [place] # Baso # Seg Neutrophils % Seg Neuts % (Manual) Lymphocytes % (Manual) Monocytes % (Manual) Eosinophils % (Manual) Basophils % (Manual) Nucleated RBC % Seg Neutrophils # Seg Neutrophils # Man Lymphocytes # (Manual) Monocytes # (Manual) Eosinophils # (Manual) Basophils # (Manual) PT INR Fibrinogen dRVVT Confirm Interp Factor V Activity POC ABG pH POC ABG pCO2 POC ABG pO2 ABG pO2 ABG HCO3 ABG Base Excess ABG Hemoglobin Oxyhemoglobin Sodium Potassium Chloride Carbon Dioxide BUN Creatinine Glucose POC Glucose 106 H 158 H Lactic Acid Calcium Phosphorus Magnesium Direct Bilirubin AST ALT Alkaline Phosphatase Lactate Dehydrogenase Troponin T C-Reactive Protein Total Protein Albumin Prealbumin Triglycerides Cholesterol LDL Cholesterol Direct HDL Cholesterol Urine pH Urine WBC (Auto) Urine Creatinine Urine Total Protein Fluid Total Protein Vancomycin Trough Rheumatoid Factor Complement C4 Miscellaneous Test Crossmatch 10/24/16 10/24/16 10/24/16 20:00 22:27 Unknown WBC RBC Hgb 9.4 L D Hct 27.5 L D MCV MCH MCHC RDW Plt Count Lymph % (Auto) [place] % (Auto) Lymph # [place] # Baso # Seg Neutrophils % Seg Neuts % (Manual) Lymphocytes % (Manual) Monocytes % (Manual) Eosinophils % (Manual) Basophils % (Manual) Nucleated RBC % Seg Neutrophils # Seg Neutrophils # Man Lymphocytes # (Manual) Monocytes # (Manual) Eosinophils # (Manual) Basophils # (Manual) PT INR Fibrinogen dRVVT Confirm Interp Factor V Activity POC ABG pH POC ABG pCO2 POC ABG pO2 ABG pO2 ABG HCO3 ABG Base Excess ABG Hemoglobin Oxyhemoglobin Sodium Potassium Chloride Carbon Dioxide BUN Creatinine Glucose POC Glucose 125 H Lactic Acid Calcium Phosphorus Magnesium Direct Bilirubin AST ALT Alkaline Phosphatase Lactate Dehydrogenase Troponin T C-Reactive Protein Total Protein Albumin Prealbumin Triglycerides Cholesterol LDL Cholesterol Direct HDL Cholesterol Urine pH Urine WBC (Auto) Urine Creatinine Urine Total Protein Fluid Total Protein Vancomycin Trough Rheumatoid Factor Complement C4 Miscellaneous Test Crossmatch See Detail 10/25/16 10/25/16 10/25/16 04:00 04:00 04:00 WBC 14.2 H RBC 2.98 L Hgb 9.0 L Hct 26.2 L MCV MCH MCHC RDW 16.6 H Plt Count Lymph % (Auto) [place] % (Auto) 10.7 H Lymph # [place] # 1.5 H Baso # Seg Neutrophils % 73.6 H Seg Neuts % (Manual) Lymphocytes % (Manual) Monocytes % (Manual) Eosinophils % (Manual) Basophils % (Manual) Nucleated RBC % Seg Neutrophils # 10.5 H Seg Neutrophils # Man Lymphocytes # (Manual) Monocytes # (Manual) Eosinophils # (Manual) Basophils # (Manual) PT INR Fibrinogen dRVVT Confirm Interp Factor V Activity POC ABG pH POC ABG pCO2 POC ABG pO2 ABG pO2 ABG HCO3 ABG Base Excess ABG Hemoglobin Oxyhemoglobin Sodium 132 L Potassium Chloride 94.7 L Carbon Dioxide BUN 51 H Creatinine 1.6 H Glucose 130 H POC Glucose Lactic Acid Calcium 8.3 L Phosphorus 1.60 L D Magnesium Direct Bilirubin AST ALT Alkaline Phosphatase Lactate Dehydrogenase Troponin T C-Reactive Protein Total Protein Albumin Prealbumin Triglycerides Cholesterol LDL Cholesterol Direct HDL Cholesterol Urine pH Urine WBC (Auto) Urine Creatinine Urine Total Protein Fluid Total Protein Vancomycin Trough Rheumatoid Factor Complement C4 Miscellaneous Test Crossmatch 10/25/16 10/25/16 10/25/16 04:32 11:48 17:22 WBC RBC Hgb Hct MCV MCH MCHC RDW Plt Count Lymph % (Auto) [place] % (Auto) Lymph # [place] # Baso # Seg Neutrophils % Seg Neuts % (Manual) Lymphocytes % (Manual) Monocytes % (Manual) Eosinophils % (Manual) Basophils % (Manual) Nucleated RBC % Seg Neutrophils # Seg Neutrophils # Man Lymphocytes # (Manual) Monocytes # (Manual) Eosinophils # (Manual) Basophils # (Manual) PT INR Fibrinogen dRVVT Confirm Interp Factor V Activity POC ABG pH POC ABG pCO2 POC ABG pO2 ABG pO2 ABG HCO3 ABG Base Excess ABG Hemoglobin Oxyhemoglobin Sodium Potassium Chloride Carbon Dioxide BUN Creatinine Glucose POC Glucose 124 H 171 H 120 H Lactic Acid Calcium Phosphorus Magnesium Direct Bilirubin AST ALT Alkaline Phosphatase Lactate Dehydrogenase Troponin T C-Reactive Protein Total Protein Albumin Prealbumin Triglycerides Cholesterol LDL Cholesterol Direct HDL Cholesterol Urine pH Urine WBC (Auto) Urine Creatinine Urine Total Protein Fluid Total Protein Vancomycin Trough Rheumatoid Factor Complement C4 Miscellaneous Test Crossmatch 10/26/16 10/26/16 10/26/16 04:54 07:06 07:06 WBC 16.9 H RBC 3.06 L Hgb 9.1 L Hct 26.9 L MCV MCH MCHC RDW 16.9 H Plt Count Lymph % (Auto) [place] % (Auto) Lymph # [place] # Baso # Seg Neutrophils % Seg Neuts % (Manual) 71.0 H Lymphocytes % (Manual) 5.0 L Monocytes % (Manual) 12.0 H Eosinophils % (Manual) Basophils % (Manual) Nucleated RBC % Seg Neutrophils # Seg Neutrophils # Man 12.0 H Lymphocytes # (Manual) 0.8 L Monocytes # (Manual) 2.0 H Eosinophils # (Manual) Basophils # (Manual) PT INR Fibrinogen dRVVT Confirm Interp Factor V Activity POC ABG pH POC ABG pCO2 POC ABG pO2 ABG pO2 ABG HCO3 ABG Base Excess ABG Hemoglobin Oxyhemoglobin Sodium 135 L Potassium Chloride 97.1 L Carbon Dioxide BUN 73 H Creatinine 2.2 H Glucose 117 H POC Glucose 123 H Lactic Acid Calcium Phosphorus 1.70 L Magnesium Direct Bilirubin AST ALT Alkaline Phosphatase Lactate Dehydrogenase Troponin T C-Reactive Protein Total Protein Albumin Prealbumin Triglycerides Cholesterol LDL Cholesterol Direct HDL Cholesterol Urine pH Urine WBC (Auto) Urine Creatinine Urine Total Protein Fluid Total Protein Vancomycin Trough Rheumatoid Factor Complement C4 Miscellaneous Test Crossmatch 10/26/16 10/26/16 10/26/16 12:12 17:29 23:42 WBC RBC Hgb Hct MCV MCH MCHC RDW Plt Count Lymph % (Auto) [place] % (Auto) Lymph # [place] # Baso # Seg Neutrophils % Seg Neuts % (Manual) Lymphocytes % (Manual) Monocytes % (Manual) Eosinophils % (Manual) Basophils % (Manual) Nucleated RBC % Seg Neutrophils # Seg Neutrophils # Man Lymphocytes # (Manual) Monocytes # (Manual) Eosinophils # (Manual) Basophils # (Manual) PT INR Fibrinogen dRVVT Confirm Interp Factor V Activity POC ABG pH POC ABG pCO2 POC ABG pO2 ABG pO2 ABG HCO3 ABG Base Excess ABG Hemoglobin Oxyhemoglobin Sodium Potassium Chloride Carbon Dioxide BUN Creatinine Glucose POC Glucose 126 H 161 H 118 H Lactic Acid Calcium Phosphorus Magnesium Direct Bilirubin AST ALT Alkaline Phosphatase Lactate Dehydrogenase Troponin T C-Reactive Protein Total Protein Albumin Prealbumin Triglycerides Cholesterol LDL Cholesterol Direct HDL Cholesterol Urine pH Urine WBC (Auto) Urine Creatinine Urine Total Protein Fluid Total Protein Vancomycin Trough Rheumatoid Factor Complement C4 Miscellaneous Test Crossmatch 10/27/16 10/27/16 10/27/16 05:03 06:30 06:30 WBC 13.9 H RBC 3.09 L Hgb 9.2 L Hct 27.5 L MCV MCH MCHC RDW 17.0 H Plt Count Lymph % (Auto) [place] % (Auto) Lymph # [place] # Baso # Seg Neutrophils % Seg Neuts % (Manual) 78.0 H Lymphocytes % (Manual) Monocytes % (Manual) Eosinophils % (Manual) Basophils % (Manual) Nucleated RBC % 2.0 H Seg Neutrophils # Seg Neutrophils # Man 10.8 H Lymphocytes # (Manual) Monocytes # (Manual) 1.0 H Eosinophils # (Manual) Basophils # (Manual) PT INR Fibrinogen dRVVT Confirm Interp Factor V Activity POC ABG pH POC ABG pCO2 POC ABG pO2 ABG pO2 ABG HCO3 ABG Base Excess ABG Hemoglobin Oxyhemoglobin Sodium Potassium Chloride Carbon Dioxide BUN 40 H Creatinine 1.5 H Glucose 135 H POC Glucose 107 H Lactic Acid Calcium 8.3 L Phosphorus 1.30 L D Magnesium Direct Bilirubin AST ALT Alkaline Phosphatase Lactate Dehydrogenase Troponin T C-Reactive Protein Total Protein Albumin Prealbumin Triglycerides Cholesterol LDL Cholesterol Direct HDL Cholesterol Urine pH Urine WBC (Auto) Urine Creatinine Urine Total Protein Fluid Total Protein Vancomycin Trough Rheumatoid Factor Complement C4 Miscellaneous Test Crossmatch 10/27/16 10/27/16 10/27/16 13:27 18:07 23:40 WBC RBC Hgb Hct MCV MCH MCHC RDW Plt Count Lymph % (Auto) [place] % (Auto) Lymph # [place] # Baso # Seg Neutrophils % Seg Neuts % (Manual) Lymphocytes % (Manual) Monocytes % (Manual) Eosinophils % (Manual) Basophils % (Manual) Nucleated RBC % Seg Neutrophils # Seg Neutrophils # Man Lymphocytes # (Manual) Monocytes # (Manual) Eosinophils # (Manual) Basophils # (Manual) PT INR Fibrinogen dRVVT Confirm Interp Factor V Activity POC ABG pH POC ABG pCO2 POC ABG pO2 ABG pO2 ABG HCO3 ABG Base Excess ABG Hemoglobin Oxyhemoglobin Sodium Potassium Chloride Carbon Dioxide BUN Creatinine Glucose POC Glucose 117 H 121 H 118 H Lactic Acid Calcium Phosphorus Magnesium Direct Bilirubin AST ALT Alkaline Phosphatase Lactate Dehydrogenase Troponin T C-Reactive Protein Total Protein Albumin Prealbumin Triglycerides Cholesterol LDL Cholesterol Direct HDL Cholesterol Urine pH Urine WBC (Auto) Urine Creatinine Urine Total Protein Fluid Total Protein Vancomycin Trough Rheumatoid Factor Complement C4 Miscellaneous Test Crossmatch 10/28/16 10/28/16 10/28/16 05:48 06:45 06:45 WBC 14.7 H RBC 3.05 L Hgb 9.0 L Hct 26.9 L MCV MCH MCHC RDW 16.8 H Plt Count Lymph % (Auto) 8.2 L [place] % (Auto) 8.4 H Lymph # [place] # 1.2 H Baso # Seg Neutrophils % 81.9 H Seg Neuts % (Manual) Lymphocytes % (Manual) Monocytes % (Manual) Eosinophils % (Manual) Basophils % (Manual) Nucleated RBC % Seg Neutrophils # 12.1 H Seg Neutrophils # Man Lymphocytes # (Manual) Monocytes # (Manual) Eosinophils # (Manual) Basophils # (Manual) PT INR Fibrinogen dRVVT Confirm Interp Factor V Activity POC ABG pH POC ABG pCO2 POC ABG pO2 ABG pO2 ABG HCO3 ABG Base Excess ABG Hemoglobin Oxyhemoglobin Sodium Potassium Chloride Carbon Dioxide BUN 60 H Creatinine 1.9 H Glucose 120 H POC Glucose 114 H Lactic Acid Calcium Phosphorus Magnesium Direct Bilirubin AST ALT Alkaline Phosphatase Lactate Dehydrogenase Troponin T C-Reactive Protein Total Protein Albumin Prealbumin Triglycerides Cholesterol LDL Cholesterol Direct HDL Cholesterol Urine pH Urine WBC (Auto) Urine Creatinine Urine Total Protein Fluid Total Protein Vancomycin Trough Rheumatoid Factor Complement C4 Miscellaneous Test Crossmatch 10/28/16 10/28/16 10/29/16 17:08 23:50 05:10 WBC RBC Hgb Hct MCV MCH MCHC RDW Plt Count Lymph % (Auto) [place] % (Auto) Lymph # [place] # Baso # Seg Neutrophils % Seg Neuts % (Manual) Lymphocytes % (Manual) Monocytes % (Manual) Eosinophils % (Manual) Basophils % (Manual) Nucleated RBC % Seg Neutrophils # Seg Neutrophils # Man Lymphocytes # (Manual) Monocytes # (Manual) Eosinophils # (Manual) Basophils # (Manual) PT INR Fibrinogen dRVVT Confirm Interp Factor V Activity POC ABG pH POC ABG pCO2 POC ABG pO2 ABG pO2 ABG HCO3 ABG Base Excess ABG Hemoglobin Oxyhemoglobin Sodium Potassium Chloride Carbon Dioxide BUN Creatinine Glucose POC Glucose 109 H 110 H 124 H Lactic Acid Calcium Phosphorus Magnesium Direct Bilirubin AST ALT Alkaline Phosphatase Lactate Dehydrogenase Troponin T C-Reactive Protein Total Protein Albumin Prealbumin Triglycerides Cholesterol LDL Cholesterol Direct HDL Cholesterol Urine pH Urine WBC (Auto) Urine Creatinine Urine Total Protein Fluid Total Protein Vancomycin Trough Rheumatoid Factor Complement C4 Miscellaneous Test Crossmatch 10/29/16 10/29/16 10/29/16 07:45 07:45 12:19 WBC 14.7 H RBC 3.15 L Hgb 9.3 L Hct 28.9 L MCV MCH MCHC RDW 17.0 H Plt Count Lymph % (Auto) 11.9 L [place] % (Auto) 8.6 H Lymph # [place] # 1.3 H Baso # Seg Neutrophils % 78.1 H Seg Neuts % (Manual) Lymphocytes % (Manual) Monocytes % (Manual) Eosinophils % (Manual) Basophils % (Manual) Nucleated RBC % Seg Neutrophils # 11.4 H Seg Neutrophils # Man Lymphocytes # (Manual) Monocytes # (Manual) Eosinophils # (Manual) Basophils # (Manual) PT INR Fibrinogen dRVVT Confirm Interp Factor V Activity POC ABG pH POC ABG pCO2 POC ABG pO2 ABG pO2 ABG HCO3 ABG Base Excess ABG Hemoglobin Oxyhemoglobin Sodium Potassium 5.1 H Chloride Carbon Dioxide 19 L BUN 78 H Creatinine 2.2 H Glucose 116 H POC Glucose 118 H Lactic Acid Calcium Phosphorus Magnesium Direct Bilirubin AST ALT Alkaline Phosphatase Lactate Dehydrogenase Troponin T C-Reactive Protein Total Protein Albumin Prealbumin Triglycerides Cholesterol LDL Cholesterol Direct HDL Cholesterol Urine pH Urine WBC (Auto) Urine Creatinine Urine Total Protein Fluid Total Protein Vancomycin Trough Rheumatoid Factor Complement C4 Miscellaneous Test Crossmatch 10/29/16 10/30/16 10/30/16 17:49 01:52 03:28 WBC RBC Hgb Hct MCV MCH MCHC RDW Plt Count Lymph % (Auto) [place] % (Auto) Lymph # [place] # Baso # Seg Neutrophils % Seg Neuts % (Manual) Lymphocytes % (Manual) Monocytes % (Manual) Eosinophils % (Manual) Basophils % (Manual) Nucleated RBC % Seg Neutrophils # Seg Neutrophils # Man Lymphocytes # (Manual) Monocytes # (Manual) Eosinophils # (Manual) Basophils # (Manual) PT INR Fibrinogen dRVVT Confirm Interp Factor V Activity POC ABG pH POC ABG pCO2 POC ABG pO2 ABG pO2 ABG HCO3 ABG Base Excess ABG Hemoglobin Oxyhemoglobin Sodium Potassium 5.4 H Chloride 97.5 L Carbon Dioxide 19 L BUN 90 H Creatinine 2.5 H Glucose POC Glucose 120 H 129 H Lactic Acid Calcium Phosphorus 5.20 H Magnesium Direct Bilirubin AST ALT Alkaline Phosphatase Lactate Dehydrogenase Troponin T C-Reactive Protein Total Protein Albumin Prealbumin Triglycerides Cholesterol LDL Cholesterol Direct HDL Cholesterol Urine pH Urine WBC (Auto) Urine Creatinine Urine Total Protein Fluid Total Protein Vancomycin Trough Rheumatoid Factor Complement C4 Miscellaneous Test Crossmatch 10/30/16 10/30/16 10/30/16 03:28 08:19 08:19 WBC 11.6 H 15.9 H RBC 2.75 L 2.82 L Hgb 7.9 L 8.3 L Hct 24.2 L 25.2 L MCV MCH MCHC RDW 16.7 H 17.2 H Plt Count Lymph % (Auto) [place] % (Auto) 9.8 H Lymph # [place] # 1.1 H Baso # Seg Neutrophils % 74.2 H Seg Neuts % (Manual) Lymphocytes % (Manual) Monocytes % (Manual) Eosinophils % (Manual) Basophils % (Manual) Nucleated RBC % Seg Neutrophils # 8.6 H Seg Neutrophils # Man Lymphocytes # (Manual) Monocytes # (Manual) Eosinophils # (Manual) Basophils # (Manual) PT INR Fibrinogen dRVVT Confirm Interp Factor V Activity POC ABG pH POC ABG pCO2 POC ABG pO2 ABG pO2 ABG HCO3 ABG Base Excess ABG Hemoglobin Oxyhemoglobin Sodium Potassium 5.3 H Chloride 97.4 L Carbon Dioxide 19 L BUN 93 H Creatinine 2.6 H Glucose POC Glucose Lactic Acid Calcium Phosphorus Magnesium Direct Bilirubin AST ALT Alkaline Phosphatase Lactate Dehydrogenase Troponin T C-Reactive Protein Total Protein Albumin Prealbumin Triglycerides Cholesterol LDL Cholesterol Direct HDL Cholesterol Urine pH Urine WBC (Auto) Urine Creatinine Urine Total Protein Fluid Total Protein Vancomycin Trough Rheumatoid Factor Complement C4 Miscellaneous Test Crossmatch 10/30/16 10/30/16 10/31/16 17:11 23:56 00:40 WBC RBC Hgb Hct MCV MCH MCHC RDW Plt Count Lymph % (Auto) [place] % (Auto) Lymph # [place] # Baso # Seg Neutrophils % Seg Neuts % (Manual) Lymphocytes % (Manual) Monocytes % (Manual) Eosinophils % (Manual) Basophils % (Manual) Nucleated RBC % Seg Neutrophils # Seg Neutrophils # Man Lymphocytes # (Manual) Monocytes # (Manual) Eosinophils # (Manual) Basophils # (Manual) PT INR Fibrinogen dRVVT Confirm Interp Factor V Activity POC ABG pH POC ABG pCO2 POC ABG pO2 ABG pO2 ABG HCO3 ABG Base Excess ABG Hemoglobin Oxyhemoglobin Sodium Potassium Chloride Carbon Dioxide BUN Creatinine Glucose POC Glucose 106 H 117 H 120 H Lactic Acid Calcium Phosphorus Magnesium Direct Bilirubin AST ALT Alkaline Phosphatase Lactate Dehydrogenase Troponin T C-Reactive Protein Total Protein Albumin Prealbumin Triglycerides Cholesterol LDL Cholesterol Direct HDL Cholesterol Urine pH Urine WBC (Auto) Urine Creatinine Urine Total Protein Fluid Total Protein Vancomycin Trough Rheumatoid Factor Complement C4 Miscellaneous Test Crossmatch 10/31/16 10/31/16 10/31/16 05:43 07:15 07:15 WBC 12.1 H RBC 2.63 L Hgb 7.7 L Hct 23.3 L MCV MCH MCHC RDW 16.7 H Plt Count Lymph % (Auto) 11.7 L [place] % (Auto) 7.7 H Lymph # [place] # 0.9 H Baso # Seg Neutrophils % 78.0 H Seg Neuts % (Manual) Lymphocytes % (Manual) Monocytes % (Manual) Eosinophils % (Manual) Basophils % (Manual) Nucleated RBC % Seg Neutrophils # 9.4 H Seg Neutrophils # Man Lymphocytes # (Manual) Monocytes # (Manual) Eosinophils # (Manual) Basophils # (Manual) PT INR Fibrinogen dRVVT Confirm Interp Factor V Activity POC ABG pH POC ABG pCO2 POC ABG pO2 ABG pO2 ABG HCO3 ABG Base Excess ABG Hemoglobin Oxyhemoglobin Sodium Potassium Chloride 96.4 L Carbon Dioxide 21 L BUN 99 H Creatinine 2.6 H Glucose 144 H POC Glucose 125 H Lactic Acid Calcium Phosphorus 4.80 H Magnesium Direct Bilirubin AST ALT Alkaline Phosphatase Lactate Dehydrogenase Troponin T C-Reactive Protein Total Protein Albumin Prealbumin Triglycerides Cholesterol LDL Cholesterol Direct HDL Cholesterol Urine pH Urine WBC (Auto) Urine Creatinine Urine Total Protein Fluid Total Protein Vancomycin Trough Rheumatoid Factor Complement C4 Miscellaneous Test Crossmatch 10/31/16 10/31/16 11/01/16 11:46 18:34 00:20 WBC RBC Hgb Hct MCV MCH MCHC RDW Plt Count Lymph % (Auto) [place] % (Auto) Lymph # [place] # Baso # Seg Neutrophils % Seg Neuts % (Manual) Lymphocytes % (Manual) Monocytes % (Manual) Eosinophils % (Manual) Basophils % (Manual) Nucleated RBC % Seg Neutrophils # Seg Neutrophils # Man Lymphocytes # (Manual) Monocytes # (Manual) Eosinophils # (Manual) Basophils # (Manual) PT INR Fibrinogen dRVVT Confirm Interp Factor V Activity POC ABG pH POC ABG pCO2 POC ABG pO2 ABG pO2 ABG HCO3 ABG Base Excess ABG Hemoglobin Oxyhemoglobin Sodium Potassium Chloride Carbon Dioxide BUN Creatinine Glucose POC Glucose 159 H 140 H 132 H Lactic Acid Calcium Phosphorus Magnesium Direct Bilirubin AST ALT Alkaline Phosphatase Lactate Dehydrogenase Troponin T C-Reactive Protein Total Protein Albumin Prealbumin Triglycerides Cholesterol LDL Cholesterol Direct HDL Cholesterol Urine pH Urine WBC (Auto) Urine Creatinine Urine Total Protein Fluid Total Protein Vancomycin Trough Rheumatoid Factor Complement C4 Miscellaneous Test Crossmatch 11/01/16 11/01/16 11/01/16 04:55 04:55 06:11 WBC 11.2 H RBC 2.68 L Hgb 7.5 L Hct 23.7 L MCV MCH MCHC RDW 16.1 H Plt Count Lymph % (Auto) [place] % (Auto) 9.8 H Lymph # [place] # 1.1 H Baso # Seg Neutrophils % 70.8 H Seg Neuts % (Manual) Lymphocytes % (Manual) Monocytes % (Manual) Eosinophils % (Manual) Basophils % (Manual) Nucleated RBC % Seg Neutrophils # 7.9 H Seg Neutrophils # Man Lymphocytes # (Manual) Monocytes # (Manual) Eosinophils # (Manual) Basophils # (Manual) PT INR Fibrinogen dRVVT Confirm Interp Factor V Activity POC ABG pH POC ABG pCO2 POC ABG pO2 ABG pO2 ABG HCO3 ABG Base Excess ABG Hemoglobin Oxyhemoglobin Sodium Potassium 3.3 L D Chloride Carbon Dioxide BUN 61 H Creatinine 1.9 H Glucose 114 H POC Glucose 115 H Lactic Acid Calcium Phosphorus 1.80 L D Magnesium Direct Bilirubin AST ALT Alkaline Phosphatase Lactate Dehydrogenase Troponin T C-Reactive Protein Total Protein Albumin Prealbumin Triglycerides Cholesterol LDL Cholesterol Direct HDL Cholesterol Urine pH Urine WBC (Auto) Urine Creatinine Urine Total Protein Fluid Total Protein Vancomycin Trough Rheumatoid Factor Complement C4 Miscellaneous Test Crossmatch 11/01/16 11/01/16 11/01/16 12:29 18:23 23:58 WBC RBC Hgb Hct MCV MCH MCHC RDW Plt Count Lymph % (Auto) [place] % (Auto) Lymph # [place] # Baso # Seg Neutrophils % Seg Neuts % (Manual) Lymphocytes % (Manual) Monocytes % (Manual) Eosinophils % (Manual) Basophils % (Manual) Nucleated RBC % Seg Neutrophils # Seg Neutrophils # Man Lymphocytes # (Manual) Monocytes # (Manual) Eosinophils # (Manual) Basophils # (Manual) PT INR Fibrinogen dRVVT Confirm Interp Factor V Activity POC ABG pH POC ABG pCO2 POC ABG pO2 ABG pO2 ABG HCO3 ABG Base Excess ABG Hemoglobin Oxyhemoglobin Sodium Potassium Chloride Carbon Dioxide BUN Creatinine Glucose POC Glucose 142 H 143 H 128 H Lactic Acid Calcium Phosphorus Magnesium Direct Bilirubin AST ALT Alkaline Phosphatase Lactate Dehydrogenase Troponin T C-Reactive Protein Total Protein Albumin Prealbumin Triglycerides Cholesterol LDL Cholesterol Direct HDL Cholesterol Urine pH Urine WBC (Auto) Urine Creatinine Urine Total Protein Fluid Total Protein Vancomycin Trough Rheumatoid Factor Complement C4 Miscellaneous Test Crossmatch 11/02/16 11/02/16 11/02/16 04:16 05:29 11:58 WBC RBC Hgb Hct MCV MCH MCHC RDW Plt Count Lymph % (Auto) [place] % (Auto) Lymph # [place] # Baso # Seg Neutrophils % Seg Neuts % (Manual) Lymphocytes % (Manual) Monocytes % (Manual) Eosinophils % (Manual) Basophils % (Manual) Nucleated RBC % Seg Neutrophils # Seg Neutrophils # Man Lymphocytes # (Manual) Monocytes # (Manual) Eosinophils # (Manual) Basophils # (Manual) PT INR Fibrinogen dRVVT Confirm Interp Factor V Activity POC ABG pH POC ABG pCO2 POC ABG pO2 ABG pO2 ABG HCO3 ABG Base Excess ABG Hemoglobin Oxyhemoglobin Sodium Potassium 3.1 L Chloride Carbon Dioxide BUN 73 H Creatinine 2.3 H Glucose 112 H POC Glucose 135 H 149 H Lactic Acid Calcium Phosphorus Magnesium Direct Bilirubin AST ALT Alkaline Phosphatase Lactate Dehydrogenase Troponin T C-Reactive Protein Total Protein Albumin Prealbumin Triglycerides Cholesterol LDL Cholesterol Direct HDL Cholesterol Urine pH Urine WBC (Auto) Urine Creatinine Urine Total Protein Fluid Total Protein Vancomycin Trough Rheumatoid Factor Complement C4 Miscellaneous Test Crossmatch 11/02/16 11/02/16 11/03/16 17:42 22:54 06:00 WBC RBC Hgb Hct MCV MCH MCHC RDW Plt Count Lymph % (Auto) [place] % (Auto) Lymph # [place] # Baso # Seg Neutrophils % Seg Neuts % (Manual) Lymphocytes % (Manual) Monocytes % (Manual) Eosinophils % (Manual) Basophils % (Manual) Nucleated RBC % Seg Neutrophils # Seg Neutrophils # Man Lymphocytes # (Manual) Monocytes # (Manual) Eosinophils # (Manual) Basophils # (Manual) PT INR Fibrinogen dRVVT Confirm Interp Factor V Activity POC ABG pH POC ABG pCO2 POC ABG pO2 ABG pO2 ABG HCO3 ABG Base Excess ABG Hemoglobin Oxyhemoglobin Sodium Potassium Chloride 96.7 L Carbon Dioxide BUN 41 H Creatinine 1.5 H Glucose 145 H POC Glucose 182 H 115 H Lactic Acid Calcium Phosphorus 1.60 L D Magnesium 1.50 L Direct Bilirubin AST ALT Alkaline Phosphatase Lactate Dehydrogenase Troponin T C-Reactive Protein Total Protein Albumin Prealbumin Triglycerides Cholesterol LDL Cholesterol Direct HDL Cholesterol Urine pH Urine WBC (Auto) Urine Creatinine Urine Total Protein Fluid Total Protein Vancomycin Trough Rheumatoid Factor Complement C4 Miscellaneous Test Crossmatch 11/03/16 11/03/16 11/03/16 11:53 17:45 23:37 WBC RBC Hgb Hct MCV MCH MCHC RDW Plt Count Lymph % (Auto) [place] % (Auto) Lymph # [place] # Baso # Seg Neutrophils % Seg Neuts % (Manual) Lymphocytes % (Manual) Monocytes % (Manual) Eosinophils % (Manual) Basophils % (Manual) Nucleated RBC % Seg Neutrophils # Seg Neutrophils # Man Lymphocytes # (Manual) Monocytes # (Manual) Eosinophils # (Manual) Basophils # (Manual) PT INR Fibrinogen dRVVT Confirm Interp Factor V Activity POC ABG pH POC ABG pCO2 POC ABG pO2 ABG pO2 ABG HCO3 ABG Base Excess ABG Hemoglobin Oxyhemoglobin Sodium Potassium Chloride Carbon Dioxide BUN Creatinine Glucose POC Glucose 131 H 134 H 113 H Lactic Acid Calcium Phosphorus Magnesium Direct Bilirubin AST ALT Alkaline Phosphatase Lactate Dehydrogenase Troponin T C-Reactive Protein Total Protein Albumin Prealbumin Triglycerides Cholesterol LDL Cholesterol Direct HDL Cholesterol Urine pH Urine WBC (Auto) Urine Creatinine Urine Total Protein Fluid Total Protein Vancomycin Trough Rheumatoid Factor Complement C4 Miscellaneous Test Crossmatch 11/04/16 11/04/16 11/04/16 05:41 06:00 12:10 WBC RBC Hgb Hct MCV MCH MCHC RDW Plt Count Lymph % (Auto) [place] % (Auto) Lymph # [place] # Baso # Seg Neutrophils % Seg Neuts % (Manual) Lymphocytes % (Manual) Monocytes % (Manual) Eosinophils % (Manual) Basophils % (Manual) Nucleated RBC % Seg Neutrophils # Seg Neutrophils # Man Lymphocytes # (Manual) Monocytes # (Manual) Eosinophils # (Manual) Basophils # (Manual) PT INR Fibrinogen dRVVT Confirm Interp Factor V Activity POC ABG pH POC ABG pCO2 POC ABG pO2 ABG pO2 ABG HCO3 ABG Base Excess ABG Hemoglobin Oxyhemoglobin Sodium Potassium Chloride 96.7 L Carbon Dioxide BUN 52 H Creatinine 1.9 H Glucose 126 H POC Glucose 137 H 191 H Lactic Acid Calcium Phosphorus Magnesium Direct Bilirubin AST ALT Alkaline Phosphatase Lactate Dehydrogenase Troponin T C-Reactive Protein Total Protein Albumin Prealbumin Triglycerides Cholesterol LDL Cholesterol Direct HDL Cholesterol Urine pH Urine WBC (Auto) Urine Creatinine Urine Total Protein Fluid Total Protein Vancomycin Trough Rheumatoid Factor Complement C4 Miscellaneous Test Crossmatch 11/04/16 11/05/16 11/05/16 22:57 03:10 05:10 WBC RBC Hgb Hct MCV MCH MCHC RDW Plt Count Lymph % (Auto) [place] % (Auto) Lymph # [place] # Baso # Seg Neutrophils % Seg Neuts % (Manual) Lymphocytes % (Manual) Monocytes % (Manual) Eosinophils % (Manual) Basophils % (Manual) Nucleated RBC % Seg Neutrophils # Seg Neutrophils # Man Lymphocytes # (Manual) Monocytes # (Manual) Eosinophils # (Manual) Basophils # (Manual) PT INR Fibrinogen dRVVT Confirm Interp Factor V Activity POC ABG pH POC ABG pCO2 POC ABG pO2 ABG pO2 ABG HCO3 ABG Base Excess ABG Hemoglobin Oxyhemoglobin Sodium 136 L Potassium Chloride 97.2 L Carbon Dioxide BUN 32 H Creatinine 1.3 H Glucose 123 H POC Glucose 125 H 108 H Lactic Acid Calcium 7.8 L Phosphorus Magnesium Direct Bilirubin AST ALT Alkaline Phosphatase Lactate Dehydrogenase Troponin T C-Reactive Protein Total Protein Albumin Prealbumin Triglycerides Cholesterol LDL Cholesterol Direct HDL Cholesterol Urine pH Urine WBC (Auto) Urine Creatinine Urine Total Protein Fluid Total Protein Vancomycin Trough Rheumatoid Factor Complement C4 Miscellaneous Test Crossmatch 11/05/16 11/05/16 11/05/16 12:23 13:09 13:25 WBC RBC Hgb Hct MCV MCH MCHC RDW Plt Count Lymph % (Auto) [place] % (Auto) Lymph # [place] # Baso # Seg Neutrophils % Seg Neuts % (Manual) Lymphocytes % (Manual) Monocytes % (Manual) Eosinophils % (Manual) Basophils % (Manual) Nucleated RBC % Seg Neutrophils # Seg Neutrophils # Man Lymphocytes # (Manual) Monocytes # (Manual) Eosinophils # (Manual) Basophils # (Manual) PT INR Fibrinogen dRVVT Confirm Interp Factor V Activity POC ABG pH POC ABG pCO2 POC ABG pO2 ABG pO2 ABG HCO3 ABG Base Excess ABG Hemoglobin Oxyhemoglobin Sodium Potassium Chloride Carbon Dioxide BUN Creatinine Glucose POC Glucose 124 H Lactic Acid Calcium Phosphorus Magnesium Direct Bilirubin AST ALT Alkaline Phosphatase Lactate Dehydrogenase Troponin T C-Reactive Protein 11.40 H Total Protein Albumin Prealbumin Triglycerides Cholesterol LDL Cholesterol Direct HDL Cholesterol Urine pH 9.0 H Urine WBC (Auto) Urine Creatinine Urine Total Protein Fluid Total Protein Vancomycin Trough Rheumatoid Factor Complement C4 Miscellaneous Test Crossmatch 11/05/16 11/05/16 11/05/16 13:25 17:54 23:42 WBC RBC Hgb Hct MCV MCH MCHC RDW Plt Count Lymph % (Auto) [place] % (Auto) Lymph # [place] # Baso # Seg Neutrophils % Seg Neuts % (Manual) Lymphocytes % (Manual) Monocytes % (Manual) Eosinophils % (Manual) Basophils % (Manual) Nucleated RBC % Seg Neutrophils # Seg Neutrophils # Man Lymphocytes # (Manual) Monocytes # (Manual) Eosinophils # (Manual) Basophils # (Manual) PT INR Fibrinogen dRVVT Confirm Interp Factor V Activity POC ABG pH POC ABG pCO2 POC ABG pO2 ABG pO2 ABG HCO3 ABG Base Excess ABG Hemoglobin Oxyhemoglobin Sodium Potassium Chloride Carbon Dioxide BUN Creatinine Glucose POC Glucose 114 H 134 H Lactic Acid Calcium Phosphorus Magnesium Direct Bilirubin AST ALT Alkaline Phosphatase Lactate Dehydrogenase Troponin T C-Reactive Protein Total Protein Albumin Prealbumin Triglycerides Cholesterol LDL Cholesterol Direct HDL Cholesterol Urine pH Urine WBC (Auto) Urine Creatinine Urine Total Protein Fluid Total Protein Vancomycin Trough Rheumatoid Factor Complement C4 Miscellaneous Test Flexitest 1 H Crossmatch 11/06/16 11/06/16 11/06/16 04:56 06:25 06:25 WBC RBC 2.50 L Hgb 7.3 L Hct 22.5 L MCV MCH MCHC RDW 16.9 H Plt Count Lymph % (Auto) [place] % (Auto) 10.5 H Lymph # [place] # 1.1 H Baso # Seg Neutrophils % Seg Neuts % (Manual) Lymphocytes % (Manual) Monocytes % (Manual) Eosinophils % (Manual) Basophils % (Manual) Nucleated RBC % Seg Neutrophils # Seg Neutrophils # Man Lymphocytes # (Manual) Monocytes # (Manual) Eosinophils # (Manual) Basophils # (Manual) PT INR Fibrinogen dRVVT Confirm Interp Factor V Activity POC ABG pH POC ABG pCO2 POC ABG pO2 ABG pO2 ABG HCO3 ABG Base Excess ABG Hemoglobin Oxyhemoglobin Sodium Potassium 5.1 H Chloride 95.9 L Carbon Dioxide BUN 52 H Creatinine 1.8 H Glucose 117 H POC Glucose 120 H Lactic Acid Calcium Phosphorus Magnesium Direct Bilirubin AST 103 H ALT 77 H Alkaline Phosphatase 285 H Lactate Dehydrogenase Troponin T C-Reactive Protein Total Protein 6.2 L Albumin 1.8 L Prealbumin 0.180 L Triglycerides Cholesterol LDL Cholesterol Direct HDL Cholesterol Urine pH Urine WBC (Auto) Urine Creatinine Urine Total Protein Fluid Total Protein Vancomycin Trough Rheumatoid Factor Complement C4 Miscellaneous Test Crossmatch 11/06/16 11/06/16 11/06/16 11:56 17:14 23:52 WBC RBC Hgb Hct MCV MCH MCHC RDW Plt Count Lymph % (Auto) [place] % (Auto) Lymph # [place] # Baso # Seg Neutrophils % Seg Neuts % (Manual) Lymphocytes % (Manual) Monocytes % (Manual) Eosinophils % (Manual) Basophils % (Manual) Nucleated RBC % Seg Neutrophils # Seg Neutrophils # Man Lymphocytes # (Manual) Monocytes # (Manual) Eosinophils # (Manual) Basophils # (Manual) PT INR Fibrinogen dRVVT Confirm Interp Factor V Activity POC ABG pH POC ABG pCO2 POC ABG pO2 ABG pO2 ABG HCO3 ABG Base Excess ABG Hemoglobin Oxyhemoglobin Sodium Potassium Chloride Carbon Dioxide BUN Creatinine Glucose POC Glucose 141 H 125 H 130 H Lactic Acid Calcium Phosphorus Magnesium Direct Bilirubin AST ALT Alkaline Phosphatase Lactate Dehydrogenase Troponin T C-Reactive Protein Total Protein Albumin Prealbumin Triglycerides Cholesterol LDL Cholesterol Direct HDL Cholesterol Urine pH Urine WBC (Auto) Urine Creatinine Urine Total Protein Fluid Total Protein Vancomycin Trough Rheumatoid Factor Complement C4 Miscellaneous Test Crossmatch 11/07/16 11/07/16 11/07/16 06:30 06:30 09:37 WBC RBC 2.18 L Hgb 6.3 L Hct 19.7 L* MCV MCH MCHC RDW 16.8 H Plt Count Lymph % (Auto) [place] % (Auto) 10.0 H Lymph # [place] # 1.0 H Baso # Seg Neutrophils % Seg Neuts % (Manual) Lymphocytes % (Manual) Monocytes % (Manual) Eosinophils % (Manual) Basophils % (Manual) Nucleated RBC % Seg Neutrophils # Seg Neutrophils # Man Lymphocytes # (Manual) Monocytes # (Manual) Eosinophils # (Manual) Basophils # (Manual) PT INR Fibrinogen dRVVT Confirm Interp Factor V Activity POC ABG pH POC ABG pCO2 POC ABG pO2 ABG pO2 ABG HCO3 ABG Base Excess ABG Hemoglobin Oxyhemoglobin Sodium 135 L Potassium Chloride 95.6 L Carbon Dioxide BUN 70 H Creatinine 2.0 H Glucose 126 H POC Glucose Lactic Acid Calcium Phosphorus Magnesium Direct Bilirubin AST ALT Alkaline Phosphatase Lactate Dehydrogenase Troponin T C-Reactive Protein Total Protein Albumin Prealbumin Triglycerides Cholesterol LDL Cholesterol Direct HDL Cholesterol Urine pH Urine WBC (Auto) Urine Creatinine Urine Total Protein Fluid Total Protein Vancomycin Trough Rheumatoid Factor Complement C4 Miscellaneous Test Crossmatch See Detail 11/07/16 11/07/16 11/07/16 12:52 18:51 21:26 WBC RBC Hgb Hct MCV MCH MCHC RDW Plt Count Lymph % (Auto) [place] % (Auto) Lymph # [place] # Baso # Seg Neutrophils % Seg Neuts % (Manual) Lymphocytes % (Manual) Monocytes % (Manual) Eosinophils % (Manual) Basophils % (Manual) Nucleated RBC % Seg Neutrophils # Seg Neutrophils # Man Lymphocytes # (Manual) Monocytes # (Manual) Eosinophils # (Manual) Basophils # (Manual) PT INR Fibrinogen dRVVT Confirm Interp Factor V Activity POC ABG pH 7.523 H POC ABG pCO2 34.6 L POC ABG pO2 53 L ABG pO2 ABG HCO3 ABG Base Excess ABG Hemoglobin Oxyhemoglobin Sodium Potassium Chloride Carbon Dioxide BUN Creatinine Glucose POC Glucose 142 H 155 H Lactic Acid Calcium Phosphorus Magnesium Direct Bilirubin AST ALT Alkaline Phosphatase Lactate Dehydrogenase Troponin T C-Reactive Protein Total Protein Albumin Prealbumin Triglycerides Cholesterol LDL Cholesterol Direct HDL Cholesterol Urine pH Urine WBC (Auto) Urine Creatinine Urine Total Protein Fluid Total Protein Vancomycin Trough Rheumatoid Factor Complement C4 Miscellaneous Test Crossmatch 11/07/16 11/08/16 11/08/16 21:34 13:03 23:37 WBC RBC 2.63 L Hgb 7.7 L Hct 22.7 L MCV MCH MCHC RDW 17.0 H Plt Count Lymph % (Auto) [place] % (Auto) Lymph # [place] # Baso # Seg Neutrophils % Seg Neuts % (Manual) Lymphocytes % (Manual) Monocytes % (Manual) Eosinophils % (Manual) Basophils % (Manual) Nucleated RBC % Seg Neutrophils # Seg Neutrophils # Man Lymphocytes # (Manual) Monocytes # (Manual) Eosinophils # (Manual) Basophils # (Manual) PT INR Fibrinogen dRVVT Confirm Interp Factor V Activity POC ABG pH 7.478 H POC ABG pCO2 34.0 L POC ABG pO2 50 L ABG pO2 ABG HCO3 ABG Base Excess ABG Hemoglobin Oxyhemoglobin Sodium Potassium Chloride Carbon Dioxide BUN Creatinine Glucose POC Glucose 113 H Lactic Acid Calcium Phosphorus Magnesium Direct Bilirubin AST ALT Alkaline Phosphatase Lactate Dehydrogenase Troponin T C-Reactive Protein Total Protein Albumin Prealbumin Triglycerides Cholesterol LDL Cholesterol Direct HDL Cholesterol Urine pH Urine WBC (Auto) Urine Creatinine Urine Total Protein Fluid Total Protein Vancomycin Trough Rheumatoid Factor Complement C4 Miscellaneous Test Crossmatch 11/09/16 11/09/16 11/09/16 04:35 10:15 18:21 WBC RBC 2.68 L Hgb 7.8 L Hct 23.3 L MCV MCH MCHC RDW 17.0 H Plt Count Lymph % (Auto) [place] % (Auto) 12.1 H Lymph # [place] # 1.1 H Baso # Seg Neutrophils % Seg Neuts % (Manual) Lymphocytes % (Manual) Monocytes % (Manual) Eosinophils % (Manual) Basophils % (Manual) Nucleated RBC % Seg Neutrophils # Seg Neutrophils # Man Lymphocytes # (Manual) Monocytes # (Manual) Eosinophils # (Manual) Basophils # (Manual) PT INR Fibrinogen dRVVT Confirm Interp Factor V Activity POC ABG pH POC ABG pCO2 POC ABG pO2 ABG pO2 ABG HCO3 ABG Base Excess ABG Hemoglobin Oxyhemoglobin Sodium Potassium Chloride Carbon Dioxide BUN 51 H Creatinine 1.8 H Glucose POC Glucose 60 L Lactic Acid Calcium 8.3 L Phosphorus Magnesium Direct Bilirubin AST ALT Alkaline Phosphatase Lactate Dehydrogenase Troponin T C-Reactive Protein Total Protein Albumin Prealbumin Triglycerides Cholesterol LDL Cholesterol Direct HDL Cholesterol Urine pH Urine WBC (Auto) Urine Creatinine Urine Total Protein Fluid Total Protein Vancomycin Trough Rheumatoid Factor Complement C4 Miscellaneous Test Crossmatch 11/09/16 11/10/16 11/10/16 18:55 07:00 11:51 WBC RBC Hgb Hct MCV MCH MCHC RDW Plt Count Lymph % (Auto) [place] % (Auto) Lymph # [place] # Baso # Seg Neutrophils % Seg Neuts % (Manual) Lymphocytes % (Manual) Monocytes % (Manual) Eosinophils % (Manual) Basophils % (Manual) Nucleated RBC % Seg Neutrophils # Seg Neutrophils # Man Lymphocytes # (Manual) Monocytes # (Manual) Eosinophils # (Manual) Basophils # (Manual) PT INR Fibrinogen dRVVT Confirm Interp Factor V Activity POC ABG pH POC ABG pCO2 POC ABG pO2 ABG pO2 ABG HCO3 ABG Base Excess ABG Hemoglobin Oxyhemoglobin Sodium Potassium 3.0 L D Chloride 97.4 L Carbon Dioxide BUN 28 H Creatinine 1.3 H Glucose POC Glucose 68 L 120 H Lactic Acid Calcium 7.8 L Phosphorus Magnesium Direct Bilirubin AST ALT Alkaline Phosphatase Lactate Dehydrogenase Troponin T C-Reactive Protein Total Protein Albumin Prealbumin Triglycerides Cholesterol LDL Cholesterol Direct HDL Cholesterol Urine pH Urine WBC (Auto) Urine Creatinine Urine Total Protein Fluid Total Protein Vancomycin Trough Rheumatoid Factor Complement C4 Miscellaneous Test Crossmatch 11/10/16 11/11/16 11/11/16 14:20 06:59 06:59 WBC RBC 2.81 L Hgb 8.1 L Hct 24.4 L MCV MCH MCHC RDW 16.4 H Plt Count Lymph % (Auto) [place] % (Auto) 10.8 H Lymph # [place] # 1.0 H Baso # Seg Neutrophils % Seg Neuts % (Manual) Lymphocytes % (Manual) Monocytes % (Manual) Eosinophils % (Manual) Basophils % (Manual) Nucleated RBC % Seg Neutrophils # Seg Neutrophils # Man Lymphocytes # (Manual) Monocytes # (Manual) Eosinophils # (Manual) Basophils # (Manual) PT INR Fibrinogen dRVVT Confirm Interp Factor V Activity POC ABG pH POC ABG pCO2 POC ABG pO2 ABG pO2 ABG HCO3 ABG Base Excess ABG Hemoglobin Oxyhemoglobin Sodium Potassium Chloride Carbon Dioxide BUN Creatinine Glucose POC Glucose Lactic Acid Calcium Phosphorus Magnesium Direct Bilirubin AST ALT Alkaline Phosphatase Lactate Dehydrogenase 196 H Troponin T C-Reactive Protein Total Protein 6.1 L Albumin Prealbumin Triglycerides Cholesterol LDL Cholesterol Direct HDL Cholesterol Urine pH Urine WBC (Auto) Urine Creatinine Urine Total Protein Fluid Total Protein < 3.0 L Vancomycin Trough Rheumatoid Factor Complement C4 Miscellaneous Test Crossmatch 11/11/16 11/11/16 11/12/16 06:59 09:50 04:00 WBC RBC Hgb Hct MCV MCH MCHC RDW Plt Count Lymph % (Auto) [place] % (Auto) Lymph # [place] # Baso # Seg Neutrophils % Seg Neuts % (Manual) Lymphocytes % (Manual) Monocytes % (Manual) Eosinophils % (Manual) Basophils % (Manual) Nucleated RBC % Seg Neutrophils # Seg Neutrophils # Man Lymphocytes # (Manual) Monocytes # (Manual) Eosinophils # (Manual) Basophils # (Manual) PT INR 1.18 H Fibrinogen dRVVT Confirm Interp Factor V Activity POC ABG pH POC ABG pCO2 POC ABG pO2 ABG pO2 ABG HCO3 ABG Base Excess ABG Hemoglobin Oxyhemoglobin Sodium 136 L 133 L Potassium Chloride 96.1 L 94.8 L Carbon Dioxide 21 L BUN 37 H 42 H Creatinine 1.8 H 2.0 H Glucose POC Glucose Lactic Acid Calcium Phosphorus Magnesium Direct Bilirubin AST ALT Alkaline Phosphatase Lactate Dehydrogenase Troponin T C-Reactive Protein Total Protein Albumin Prealbumin Triglycerides Cholesterol LDL Cholesterol Direct HDL Cholesterol Urine pH Urine WBC (Auto) Urine Creatinine Urine Total Protein Fluid Total Protein Vancomycin Trough Rheumatoid Factor Complement C4 Miscellaneous Test Crossmatch 11/12/16 11/12/16 11/13/16 04:00 23:55 05:53 WBC RBC Hgb 8.9 L Hct 27.2 L MCV MCH MCHC RDW Plt Count Lymph % (Auto) [place] % (Auto) Lymph # [place] # Baso # Seg Neutrophils % Seg Neuts % (Manual) Lymphocytes % (Manual) Monocytes % (Manual) Eosinophils % (Manual) Basophils % (Manual) Nucleated RBC % Seg Neutrophils # Seg Neutrophils # Man Lymphocytes # (Manual) Monocytes # (Manual) Eosinophils # (Manual) Basophils # (Manual) PT INR Fibrinogen dRVVT Confirm Interp Factor V Activity POC ABG pH POC ABG pCO2 POC ABG pO2 ABG pO2 ABG HCO3 ABG Base Excess ABG Hemoglobin Oxyhemoglobin Sodium Potassium Chloride Carbon Dioxide BUN Creatinine Glucose POC Glucose 132 H 120 H Lactic Acid Calcium Phosphorus Magnesium Direct Bilirubin AST ALT Alkaline Phosphatase Lactate Dehydrogenase Troponin T C-Reactive Protein Total Protein Albumin Prealbumin Triglycerides Cholesterol LDL Cholesterol Direct HDL Cholesterol Urine pH Urine WBC (Auto) Urine Creatinine Urine Total Protein Fluid Total Protein Vancomycin Trough Rheumatoid Factor Complement C4 Miscellaneous Test Crossmatch 11/13/16 11/13/16 11/13/16 11:43 17:09 23:41 WBC RBC Hgb Hct MCV MCH MCHC RDW Plt Count Lymph % (Auto) [place] % (Auto) Lymph # [place] # Baso # Seg Neutrophils % Seg Neuts % (Manual) Lymphocytes % (Manual) Monocytes % (Manual) Eosinophils % (Manual) Basophils % (Manual) Nucleated RBC % Seg Neutrophils # Seg Neutrophils # Man Lymphocytes # (Manual) Monocytes # (Manual) Eosinophils # (Manual) Basophils # (Manual) PT INR Fibrinogen dRVVT Confirm Interp Factor V Activity POC ABG pH POC ABG pCO2 POC ABG pO2 ABG pO2 ABG HCO3 ABG Base Excess ABG Hemoglobin Oxyhemoglobin Sodium Potassium Chloride Carbon Dioxide BUN Creatinine Glucose POC Glucose 114 H 113 H 108 H Lactic Acid Calcium Phosphorus Magnesium Direct Bilirubin AST ALT Alkaline Phosphatase Lactate Dehydrogenase Troponin T C-Reactive Protein Total Protein Albumin Prealbumin Triglycerides Cholesterol LDL Cholesterol Direct HDL Cholesterol Urine pH Urine WBC (Auto) Urine Creatinine Urine Total Protein Fluid Total Protein Vancomycin Trough Rheumatoid Factor Complement C4 Miscellaneous Test Crossmatch 11/13/16 11/15/16 11/15/16 Unknown 00:37 03:30 WBC 11.2 H RBC 2.72 L Hgb 7.6 L Hct 23.4 L MCV MCH MCHC RDW 16.5 H Plt Count Lymph % (Auto) [place] % (Auto) Lymph # [place] # Baso # Seg Neutrophils % Seg Neuts % (Manual) Lymphocytes % (Manual) Monocytes % (Manual) Eosinophils % (Manual) Basophils % (Manual) Nucleated RBC % Seg Neutrophils # Seg Neutrophils # Man Lymphocytes # (Manual) Monocytes # (Manual) Eosinophils # (Manual) Basophils # (Manual) PT INR Fibrinogen dRVVT Confirm Interp Factor V Activity POC ABG pH POC ABG pCO2 POC ABG pO2 ABG pO2 ABG HCO3 ABG Base Excess ABG Hemoglobin Oxyhemoglobin Sodium 135 L Potassium Chloride 95.2 L Carbon Dioxide BUN 52 H Creatinine 2.2 H Glucose POC Glucose 108 H Lactic Acid Calcium Phosphorus Magnesium Direct Bilirubin AST ALT Alkaline Phosphatase Lactate Dehydrogenase Troponin T C-Reactive Protein Total Protein Albumin Prealbumin Triglycerides Cholesterol LDL Cholesterol Direct HDL Cholesterol Urine pH Urine WBC (Auto) Urine Creatinine Urine Total Protein Fluid Total Protein Vancomycin Trough Rheumatoid Factor Complement C4 Miscellaneous Test Crossmatch 11/15/16 11/15/16 11/15/16 03:30 05:04 11:50 WBC RBC Hgb Hct MCV MCH MCHC RDW Plt Count Lymph % (Auto) [place] % (Auto) Lymph # [place] # Baso # Seg Neutrophils % Seg Neuts % (Manual) Lymphocytes % (Manual) Monocytes % (Manual) Eosinophils % (Manual) Basophils % (Manual) Nucleated RBC % Seg Neutrophils # Seg Neutrophils # Man Lymphocytes # (Manual) Monocytes # (Manual) Eosinophils # (Manual) Basophils # (Manual) PT INR Fibrinogen dRVVT Confirm Interp Factor V Activity POC ABG pH POC ABG pCO2 POC ABG pO2 ABG pO2 ABG HCO3 ABG Base Excess ABG Hemoglobin Oxyhemoglobin Sodium Potassium 3.4 L Chloride Carbon Dioxide BUN 25 H Creatinine 1.5 H Glucose 103 H POC Glucose 121 H 144 H Lactic Acid Calcium Phosphorus Magnesium Direct Bilirubin AST ALT Alkaline Phosphatase Lactate Dehydrogenase Troponin T C-Reactive Protein Total Protein Albumin Prealbumin Triglycerides Cholesterol LDL Cholesterol Direct HDL Cholesterol Urine pH Urine WBC (Auto) Urine Creatinine Urine Total Protein Fluid Total Protein Vancomycin Trough Rheumatoid Factor Complement C4 Miscellaneous Test Crossmatch 11/15/16 11/15/16 11/16/16 21:28 23:20 11:44 WBC RBC Hgb Hct MCV MCH MCHC RDW Plt Count Lymph % (Auto) [place] % (Auto) Lymph # [place] # Baso # Seg Neutrophils % Seg Neuts % (Manual) Lymphocytes % (Manual) Monocytes % (Manual) Eosinophils % (Manual) Basophils % (Manual) Nucleated RBC % Seg Neutrophils # Seg Neutrophils # Man Lymphocytes # (Manual) Monocytes # (Manual) Eosinophils # (Manual) Basophils # (Manual) PT INR Fibrinogen dRVVT Confirm Interp Factor V Activity POC ABG pH 7.462 H POC ABG pCO2 POC ABG pO2 71 L ABG pO2 ABG HCO3 ABG Base Excess ABG Hemoglobin Oxyhemoglobin Sodium Potassium Chloride Carbon Dioxide BUN Creatinine Glucose POC Glucose 116 H 133 H Lactic Acid Calcium Phosphorus Magnesium Direct Bilirubin AST ALT Alkaline Phosphatase Lactate Dehydrogenase Troponin T C-Reactive Protein Total Protein Albumin Prealbumin Triglycerides Cholesterol LDL Cholesterol Direct HDL Cholesterol Urine pH Urine WBC (Auto) Urine Creatinine Urine Total Protein Fluid Total Protein Vancomycin Trough Rheumatoid Factor Complement C4 Miscellaneous Test Crossmatch 11/16/16 11/16/16 11/16/16 12:20 17:05 23:35 WBC 11.7 H RBC 2.73 L Hgb 7.6 L Hct 23.7 L MCV MCH MCHC RDW 16.6 H Plt Count Lymph % (Auto) [place] % (Auto) Lymph # [place] # Baso # Seg Neutrophils % Seg Neuts % (Manual) Lymphocytes % (Manual) Monocytes % (Manual) Eosinophils % (Manual) Basophils % (Manual) Nucleated RBC % Seg Neutrophils # Seg Neutrophils # Man Lymphocytes # (Manual) Monocytes # (Manual) Eosinophils # (Manual) Basophils # (Manual) PT INR Fibrinogen dRVVT Confirm Interp Factor V Activity POC ABG pH POC ABG pCO2 POC ABG pO2 ABG pO2 ABG HCO3 ABG Base Excess ABG Hemoglobin Oxyhemoglobin Sodium Potassium Chloride Carbon Dioxide BUN Creatinine Glucose POC Glucose 154 H 125 H Lactic Acid Calcium Phosphorus Magnesium Direct Bilirubin AST ALT Alkaline Phosphatase Lactate Dehydrogenase Troponin T C-Reactive Protein Total Protein Albumin Prealbumin Triglycerides Cholesterol LDL Cholesterol Direct HDL Cholesterol Urine pH Urine WBC (Auto) Urine Creatinine Urine Total Protein Fluid Total Protein Vancomycin Trough Rheumatoid Factor Complement C4 Miscellaneous Test Crossmatch 11/17/16 11/17/16 11/17/16 03:20 03:20 03:20 WBC RBC 2.55 L Hgb 7.3 L Hct 21.9 L MCV MCH MCHC RDW 16.6 H Plt Count Lymph % (Auto) [place] % (Auto) 11.5 H Lymph # [place] # 1.1 H Baso # Seg Neutrophils % Seg Neuts % (Manual) Lymphocytes % (Manual) Monocytes % (Manual) Eosinophils % (Manual) Basophils % (Manual) Nucleated RBC % Seg Neutrophils # Seg Neutrophils # Man Lymphocytes # (Manual) Monocytes # (Manual) Eosinophils # (Manual) Basophils # (Manual) PT 16.8 H INR 1.37 H Fibrinogen dRVVT Confirm Interp Factor V Activity POC ABG pH POC ABG pCO2 POC ABG pO2 ABG pO2 ABG HCO3 ABG Base Excess ABG Hemoglobin Oxyhemoglobin Sodium Potassium 3.5 L Chloride Carbon Dioxide BUN 21 H Creatinine Glucose POC Glucose Lactic Acid Calcium 7.9 L Phosphorus Magnesium Direct Bilirubin AST ALT Alkaline Phosphatase Lactate Dehydrogenase Troponin T C-Reactive Protein Total Protein Albumin Prealbumin Triglycerides Cholesterol LDL Cholesterol Direct HDL Cholesterol Urine pH Urine WBC (Auto) Urine Creatinine Urine Total Protein Fluid Total Protein Vancomycin Trough Rheumatoid Factor Complement C4 Miscellaneous Test Crossmatch 11/17/16 11/17/16 11/17/16 06:34 11:21 21:22 WBC RBC Hgb Hct MCV MCH MCHC RDW Plt Count Lymph % (Auto) [place] % (Auto) Lymph # [place] # Baso # Seg Neutrophils % Seg Neuts % (Manual) Lymphocytes % (Manual) Monocytes % (Manual) Eosinophils % (Manual) Basophils % (Manual) Nucleated RBC % Seg Neutrophils # Seg Neutrophils # Man Lymphocytes # (Manual) Monocytes # (Manual) Eosinophils # (Manual) Basophils # (Manual) PT INR Fibrinogen dRVVT Confirm Interp Factor V Activity POC ABG pH 7.467 H POC ABG pCO2 POC ABG pO2 73 L ABG pO2 ABG HCO3 ABG Base Excess ABG Hemoglobin Oxyhemoglobin Sodium Potassium Chloride Carbon Dioxide BUN Creatinine Glucose POC Glucose 121 H 119 H Lactic Acid Calcium Phosphorus Magnesium Direct Bilirubin AST ALT Alkaline Phosphatase Lactate Dehydrogenase Troponin T C-Reactive Protein Total Protein Albumin Prealbumin Triglycerides Cholesterol LDL Cholesterol Direct HDL Cholesterol Urine pH Urine WBC (Auto) Urine Creatinine Urine Total Protein Fluid Total Protein Vancomycin Trough Rheumatoid Factor Complement C4 Miscellaneous Test Crossmatch 11/18/16 11/18/16 11/19/16 12:16 17:19 00:00 WBC RBC Hgb Hct MCV MCH MCHC RDW Plt Count Lymph % (Auto) [place] % (Auto) Lymph # [place] # Baso # Seg Neutrophils % Seg Neuts % (Manual) Lymphocytes % (Manual) Monocytes % (Manual) Eosinophils % (Manual) Basophils % (Manual) Nucleated RBC % Seg Neutrophils # Seg Neutrophils # Man Lymphocytes # (Manual) Monocytes # (Manual) Eosinophils # (Manual) Basophils # (Manual) PT INR Fibrinogen dRVVT Confirm Interp Factor V Activity POC ABG pH POC ABG pCO2 POC ABG pO2 ABG pO2 ABG HCO3 ABG Base Excess ABG Hemoglobin Oxyhemoglobin Sodium Potassium Chloride Carbon Dioxide BUN Creatinine Glucose POC Glucose 124 H 162 H 139 H Lactic Acid Calcium Phosphorus Magnesium Direct Bilirubin AST ALT Alkaline Phosphatase Lactate Dehydrogenase Troponin T C-Reactive Protein Total Protein Albumin Prealbumin Triglycerides Cholesterol LDL Cholesterol Direct HDL Cholesterol Urine pH Urine WBC (Auto) Urine Creatinine Urine Total Protein Fluid Total Protein Vancomycin Trough Rheumatoid Factor Complement C4 Miscellaneous Test Crossmatch 11/19/16 11/19/16 11/20/16 05:00 12:43 00:40 WBC RBC Hgb Hct MCV MCH MCHC RDW Plt Count Lymph % (Auto) [place] % (Auto) Lymph # [place] # Baso # Seg Neutrophils % Seg Neuts % (Manual) Lymphocytes % (Manual) Monocytes % (Manual) Eosinophils % (Manual) Basophils % (Manual) Nucleated RBC % Seg Neutrophils # Seg Neutrophils # Man Lymphocytes # (Manual) Monocytes # (Manual) Eosinophils # (Manual) Basophils # (Manual) PT INR Fibrinogen dRVVT Confirm Interp Factor V Activity POC ABG pH POC ABG pCO2 POC ABG pO2 ABG pO2 ABG HCO3 ABG Base Excess ABG Hemoglobin Oxyhemoglobin Sodium Potassium Chloride Carbon Dioxide BUN Creatinine Glucose POC Glucose 110 H 125 H 136 H Lactic Acid Calcium Phosphorus Magnesium Direct Bilirubin AST ALT Alkaline Phosphatase Lactate Dehydrogenase Troponin T C-Reactive Protein Total Protein Albumin Prealbumin Triglycerides Cholesterol LDL Cholesterol Direct HDL Cholesterol Urine pH Urine WBC (Auto) Urine Creatinine Urine Total Protein Fluid Total Protein Vancomycin Trough Rheumatoid Factor Complement C4 Miscellaneous Test Crossmatch 11/20/16 11/20/16 11/20/16 05:00 05:00 05:51 WBC 13.1 H RBC 2.74 L Hgb 7.7 L Hct 23.6 L MCV MCH MCHC RDW 16.9 H Plt Count Lymph % (Auto) [place] % (Auto) 10.8 H Lymph # [place] # 1.4 H Baso # Seg Neutrophils % Seg Neuts % (Manual) Lymphocytes % (Manual) Monocytes % (Manual) Eosinophils % (Manual) Basophils % (Manual) Nucleated RBC % Seg Neutrophils # 7.9 H Seg Neutrophils # Man Lymphocytes # (Manual) Monocytes # (Manual) Eosinophils # (Manual) Basophils # (Manual) PT INR Fibrinogen dRVVT Confirm Interp Factor V Activity POC ABG pH POC ABG pCO2 POC ABG pO2 ABG pO2 ABG HCO3 ABG Base Excess ABG Hemoglobin Oxyhemoglobin Sodium Potassium Chloride Carbon Dioxide BUN 31 H Creatinine 1.8 H Glucose 129 H POC Glucose 133 H Lactic Acid Calcium Phosphorus Magnesium Direct Bilirubin AST ALT Alkaline Phosphatase Lactate Dehydrogenase Troponin T C-Reactive Protein Total Protein Albumin Prealbumin Triglycerides Cholesterol LDL Cholesterol Direct HDL Cholesterol Urine pH Urine WBC (Auto) Urine Creatinine Urine Total Protein Fluid Total Protein Vancomycin Trough Rheumatoid Factor Complement C4 Miscellaneous Test Crossmatch 11/20/16 11/20/16 11/21/16 12:40 18:10 01:20 WBC RBC Hgb Hct MCV MCH MCHC RDW Plt Count Lymph % (Auto) [place] % (Auto) Lymph # [place] # Baso # Seg Neutrophils % Seg Neuts % (Manual) Lymphocytes % (Manual) Monocytes % (Manual) Eosinophils % (Manual) Basophils % (Manual) Nucleated RBC % Seg Neutrophils # Seg Neutrophils # Man Lymphocytes # (Manual) Monocytes # (Manual) Eosinophils # (Manual) Basophils # (Manual) PT INR Fibrinogen dRVVT Confirm Interp Factor V Activity POC ABG pH POC ABG pCO2 POC ABG pO2 ABG pO2 ABG HCO3 ABG Base Excess ABG Hemoglobin Oxyhemoglobin Sodium Potassium Chloride Carbon Dioxide BUN Creatinine Glucose POC Glucose 134 H 138 H 136 H Lactic Acid Calcium Phosphorus Magnesium Direct Bilirubin AST ALT Alkaline Phosphatase Lactate Dehydrogenase Troponin T C-Reactive Protein Total Protein Albumin Prealbumin Triglycerides Cholesterol LDL Cholesterol Direct HDL Cholesterol Urine pH Urine WBC (Auto) Urine Creatinine Urine Total Protein Fluid Total Protein Vancomycin Trough Rheumatoid Factor Complement C4 Miscellaneous Test Crossmatch 11/21/16 11/21/16 11/21/16 07:04 07:45 07:45 WBC 22.0 H RBC 2.91 L Hgb 8.2 L Hct 25.4 L MCV MCH MCHC RDW 17.1 H Plt Count Lymph % (Auto) [place] % (Auto) Lymph # [place] # Baso # Seg Neutrophils % Seg Neuts % (Manual) Lymphocytes % (Manual) 8.0 L Monocytes % (Manual) Eosinophils % (Manual) Basophils % (Manual) Nucleated RBC % Seg Neutrophils # Seg Neutrophils # Man 14.7 H Lymphocytes # (Manual) Monocytes # (Manual) 1.1 H Eosinophils # (Manual) Basophils # (Manual) PT INR Fibrinogen dRVVT Confirm Interp Factor V Activity POC ABG pH POC ABG pCO2 POC ABG pO2 ABG pO2 ABG HCO3 ABG Base Excess ABG Hemoglobin Oxyhemoglobin Sodium Potassium Chloride Carbon Dioxide BUN 42 H Creatinine 2.0 H Glucose POC Glucose 108 H Lactic Acid Calcium Phosphorus Magnesium Direct Bilirubin AST ALT Alkaline Phosphatase Lactate Dehydrogenase Troponin T C-Reactive Protein Total Protein Albumin Prealbumin Triglycerides Cholesterol LDL Cholesterol Direct HDL Cholesterol Urine pH Urine WBC (Auto) Urine Creatinine Urine Total Protein Fluid Total Protein Vancomycin Trough Rheumatoid Factor Complement C4 Miscellaneous Test Crossmatch 11/21/16 11/21/16 11/21/16 08:38 10:09 11:20 WBC RBC Hgb Hct MCV MCH MCHC RDW Plt Count Lymph % (Auto) [place] % (Auto) Lymph # [place] # Baso # Seg Neutrophils % Seg Neuts % (Manual) Lymphocytes % (Manual) Monocytes % (Manual) Eosinophils % (Manual) Basophils % (Manual) Nucleated RBC % Seg Neutrophils # Seg Neutrophils # Man Lymphocytes # (Manual) Monocytes # (Manual) Eosinophils # (Manual) Basophils # (Manual) PT INR Fibrinogen dRVVT Confirm Interp Factor V Activity POC ABG pH 7.346 L POC ABG pCO2 34.4 L POC ABG pO2 314 H ABG pO2 ABG HCO3 ABG Base Excess ABG Hemoglobin Oxyhemoglobin Sodium Potassium Chloride Carbon Dioxide BUN Creatinine Glucose POC Glucose 195 H 153 H Lactic Acid Calcium Phosphorus Magnesium Direct Bilirubin AST ALT Alkaline Phosphatase Lactate Dehydrogenase Troponin T C-Reactive Protein Total Protein Albumin Prealbumin Triglycerides Cholesterol LDL Cholesterol Direct HDL Cholesterol Urine pH Urine WBC (Auto) Urine Creatinine Urine Total Protein Fluid Total Protein Vancomycin Trough Rheumatoid Factor Complement C4 Miscellaneous Test Crossmatch 11/21/16 11/22/16 11/22/16 23:37 04:48 05:00 WBC 29.7 H RBC 2.73 L Hgb 7.5 L Hct 24.2 L MCV MCH 27 L MCHC RDW 17.4 H Plt Count Lymph % (Auto) [place] % (Auto) Lymph # [place] # Baso # Seg Neutrophils % Seg Neuts % (Manual) Lymphocytes % (Manual) 7.0 L Monocytes % (Manual) Eosinophils % (Manual) Basophils % (Manual) Nucleated RBC % Seg Neutrophils # Seg Neutrophils # Man 15.4 H Lymphocytes # (Manual) Monocytes # (Manual) Eosinophils # (Manual) Basophils # (Manual) PT INR Fibrinogen dRVVT Confirm Interp Factor V Activity POC ABG pH POC ABG pCO2 24.6 L POC ABG pO2 189 H ABG pO2 ABG HCO3 ABG Base Excess ABG Hemoglobin Oxyhemoglobin Sodium Potassium Chloride Carbon Dioxide BUN Creatinine Glucose POC Glucose 65 L Lactic Acid Calcium Phosphorus Magnesium Direct Bilirubin AST ALT Alkaline Phosphatase Lactate Dehydrogenase Troponin T C-Reactive Protein Total Protein Albumin Prealbumin Triglycerides Cholesterol LDL Cholesterol Direct HDL Cholesterol Urine pH Urine WBC (Auto) Urine Creatinine Urine Total Protein Fluid Total Protein Vancomycin Trough Rheumatoid Factor Complement C4 Miscellaneous Test Crossmatch 11/22/16 11/23/16 11/23/16 05:00 03:44 04:06 WBC RBC 2.52 L Hgb 7.2 L Hct 21.5 L MCV MCH MCHC RDW 17.1 H Plt Count Lymph % (Auto) [place] % (Auto) 12.4 H Lymph # [place] # 1.4 H Baso # Seg Neutrophils % Seg Neuts % (Manual) Lymphocytes % (Manual) Monocytes % (Manual) Eosinophils % (Manual) Basophils % (Manual) Nucleated RBC % Seg Neutrophils # Seg Neutrophils # Man Lymphocytes # (Manual) Monocytes # (Manual) Eosinophils # (Manual) Basophils # (Manual) PT INR Fibrinogen dRVVT Confirm Interp Factor V Activity POC ABG pH 7.493 H POC ABG pCO2 29.5 L POC ABG pO2 49 L ABG pO2 ABG HCO3 ABG Base Excess ABG Hemoglobin Oxyhemoglobin Sodium 134 L Potassium Chloride 95.9 L Carbon Dioxide 14 L D BUN 51 H Creatinine 2.6 H Glucose POC Glucose Lactic Acid Calcium Phosphorus Magnesium Direct Bilirubin AST ALT Alkaline Phosphatase Lactate Dehydrogenase Troponin T C-Reactive Protein Total Protein Albumin Prealbumin Triglycerides Cholesterol LDL Cholesterol Direct HDL Cholesterol Urine pH Urine WBC (Auto) Urine Creatinine Urine Total Protein Fluid Total Protein Vancomycin Trough Rheumatoid Factor Complement C4 Miscellaneous Test Crossmatch 11/23/16 11/23/16 11/24/16 04:06 11:29 06:39 WBC RBC Hgb Hct MCV MCH MCHC RDW Plt Count Lymph % (Auto) [place] % (Auto) Lymph # [place] # Baso # Seg Neutrophils % Seg Neuts % (Manual) Lymphocytes % (Manual) Monocytes % (Manual) Eosinophils % (Manual) Basophils % (Manual) Nucleated RBC % Seg Neutrophils # Seg Neutrophils # Man Lymphocytes # (Manual) Monocytes # (Manual) Eosinophils # (Manual) Basophils # (Manual) PT INR Fibrinogen dRVVT Confirm Interp Factor V Activity POC ABG pH POC ABG pCO2 POC ABG pO2 ABG pO2 ABG HCO3 ABG Base Excess ABG Hemoglobin Oxyhemoglobin Sodium 136 L Potassium Chloride 95.2 L Carbon Dioxide BUN 60 H Creatinine 2.9 H Glucose POC Glucose 69 L 305 H Lactic Acid Calcium Phosphorus Magnesium 1.60 L Direct Bilirubin AST ALT Alkaline Phosphatase Lactate Dehydrogenase Troponin T C-Reactive Protein Total Protein Albumin Prealbumin Triglycerides Cholesterol LDL Cholesterol Direct HDL Cholesterol Urine pH Urine WBC (Auto) Urine Creatinine Urine Total Protein Fluid Total Protein Vancomycin Trough Rheumatoid Factor Complement C4 Miscellaneous Test Crossmatch 11/24/16 11/24/16 11/24/16 06:43 08:08 08:08 WBC 11.2 H RBC 2.47 L Hgb 6.8 L Hct 20.6 L MCV MCH MCHC RDW 17.0 H Plt Count Lymph % (Auto) [place] % (Auto) 10.3 H Lymph # [place] # 1.2 H Baso # Seg Neutrophils % Seg Neuts % (Manual) Lymphocytes % (Manual) Monocytes % (Manual) Eosinophils % (Manual) Basophils % (Manual) Nucleated RBC % Seg Neutrophils # Seg Neutrophils # Man Lymphocytes # (Manual) Monocytes # (Manual) Eosinophils # (Manual) Basophils # (Manual) PT INR Fibrinogen dRVVT Confirm Interp Factor V Activity POC ABG pH POC ABG pCO2 POC ABG pO2 ABG pO2 ABG HCO3 ABG Base Excess ABG Hemoglobin Oxyhemoglobin Sodium 135 L Potassium Chloride 96.3 L Carbon Dioxide BUN 61 H Creatinine 3.1 H Glucose POC Glucose 62 L Lactic Acid Calcium 8.2 L Phosphorus Magnesium Direct Bilirubin AST ALT Alkaline Phosphatase Lactate Dehydrogenase Troponin T C-Reactive Protein Total Protein Albumin Prealbumin Triglycerides Cholesterol LDL Cholesterol Direct HDL Cholesterol Urine pH Urine WBC (Auto) Urine Creatinine Urine Total Protein Fluid Total Protein Vancomycin Trough Rheumatoid Factor Complement C4 Miscellaneous Test Crossmatch 11/24/16 11/24/16 11/24/16 08:34 11:20 12:41 WBC RBC Hgb Hct MCV MCH MCHC RDW Plt Count Lymph % (Auto) [place] % (Auto) Lymph # [place] # Baso # Seg Neutrophils % Seg Neuts % (Manual) Lymphocytes % (Manual) Monocytes % (Manual) Eosinophils % (Manual) Basophils % (Manual) Nucleated RBC % Seg Neutrophils # Seg Neutrophils # Man Lymphocytes # (Manual) Monocytes # (Manual) Eosinophils # (Manual) Basophils # (Manual) PT INR Fibrinogen dRVVT Confirm Interp Factor V Activity POC ABG pH POC ABG pCO2 POC ABG pO2 ABG pO2 ABG HCO3 ABG Base Excess ABG Hemoglobin Oxyhemoglobin Sodium Potassium Chloride Carbon Dioxide BUN Creatinine Glucose POC Glucose 108 H Lactic Acid Calcium Phosphorus Magnesium 1.60 L Direct Bilirubin AST ALT Alkaline Phosphatase Lactate Dehydrogenase Troponin T C-Reactive Protein Total Protein Albumin Prealbumin Triglycerides Cholesterol LDL Cholesterol Direct HDL Cholesterol Urine pH Urine WBC (Auto) Urine Creatinine Urine Total Protein Fluid Total Protein Vancomycin Trough Rheumatoid Factor Complement C4 Miscellaneous Test Crossmatch See Detail 11/25/16 11/25/16 11/25/16 00:03 04:42 04:42 WBC RBC 3.03 L Hgb 8.6 L Hct 25.3 L MCV MCH MCHC RDW 16.2 H Plt Count Lymph % (Auto) [place] % (Auto) 8.1 H Lymph # [place] # Baso # Seg Neutrophils % 71.3 H Seg Neuts % (Manual) Lymphocytes % (Manual) Monocytes % (Manual) Eosinophils % (Manual) Basophils % (Manual) Nucleated RBC % Seg Neutrophils # Seg Neutrophils # Man Lymphocytes # (Manual) Monocytes # (Manual) Eosinophils # (Manual) Basophils # (Manual) PT INR Fibrinogen dRVVT Confirm Interp Factor V Activity POC ABG pH POC ABG pCO2 POC ABG pO2 ABG pO2 ABG HCO3 ABG Base Excess ABG Hemoglobin Oxyhemoglobin Sodium Potassium Chloride Carbon Dioxide BUN 61 H Creatinine 3.0 H Glucose 102 H POC Glucose 113 H Lactic Acid Calcium 8.2 L Phosphorus Magnesium Direct Bilirubin AST ALT Alkaline Phosphatase 142 H Lactate Dehydrogenase Troponin T C-Reactive Protein Total Protein 5.7 L Albumin 1.5 L Prealbumin Triglycerides Cholesterol LDL Cholesterol Direct HDL Cholesterol Urine pH Urine WBC (Auto) Urine Creatinine Urine Total Protein Fluid Total Protein Vancomycin Trough Rheumatoid Factor Complement C4 Miscellaneous Test Crossmatch 11/25/16 11/25/16 11/25/16 05:12 11:31 14:12 WBC RBC Hgb Hct MCV MCH MCHC RDW Plt Count Lymph % (Auto) [place] % (Auto) Lymph # [place] # Baso # Seg Neutrophils % Seg Neuts % (Manual) Lymphocytes % (Manual) Monocytes % (Manual) Eosinophils % (Manual) Basophils % (Manual) Nucleated RBC % Seg Neutrophils # Seg Neutrophils # Man Lymphocytes # (Manual) Monocytes # (Manual) Eosinophils # (Manual) Basophils # (Manual) PT INR Fibrinogen dRVVT Confirm Interp Factor V Activity POC ABG pH 7.487 H POC ABG pCO2 POC ABG pO2 153 H ABG pO2 ABG HCO3 ABG Base Excess ABG Hemoglobin Oxyhemoglobin Sodium Potassium Chloride Carbon Dioxide BUN Creatinine Glucose POC Glucose 131 H 140 H Lactic Acid Calcium Phosphorus Magnesium Direct Bilirubin AST ALT Alkaline Phosphatase Lactate Dehydrogenase Troponin T C-Reactive Protein Total Protein Albumin Prealbumin Triglycerides Cholesterol LDL Cholesterol Direct HDL Cholesterol Urine pH Urine WBC (Auto) Urine Creatinine Urine Total Protein Fluid Total Protein Vancomycin Trough Rheumatoid Factor Complement C4 Miscellaneous Test Crossmatch 11/25/16 11/26/16 11/26/16 17:23 00:09 05:13 WBC RBC 2.94 L Hgb 8.4 L Hct 24.6 L MCV MCH MCHC RDW 16.4 H Plt Count Lymph % (Auto) [place] % (Auto) 12.3 H Lymph # [place] # 1.1 H Baso # Seg Neutrophils % Seg Neuts % (Manual) Lymphocytes % (Manual) Monocytes % (Manual) Eosinophils % (Manual) Basophils % (Manual) Nucleated RBC % Seg Neutrophils # Seg Neutrophils # Man Lymphocytes # (Manual) Monocytes # (Manual) Eosinophils # (Manual) Basophils # (Manual) PT INR Fibrinogen dRVVT Confirm Interp Factor V Activity POC ABG pH POC ABG pCO2 POC ABG pO2 ABG pO2 ABG HCO3 ABG Base Excess ABG Hemoglobin Oxyhemoglobin Sodium Potassium Chloride Carbon Dioxide BUN Creatinine Glucose POC Glucose 146 H 112 H Lactic Acid Calcium Phosphorus Magnesium Direct Bilirubin AST ALT Alkaline Phosphatase Lactate Dehydrogenase Troponin T C-Reactive Protein Total Protein Albumin Prealbumin Triglycerides Cholesterol LDL Cholesterol Direct HDL Cholesterol Urine pH Urine WBC (Auto) Urine Creatinine Urine Total Protein Fluid Total Protein Vancomycin Trough Rheumatoid Factor Complement C4 Miscellaneous Test Crossmatch 11/26/16 11/26/16 11/26/16 05:13 05:28 11:53 WBC RBC Hgb Hct MCV MCH MCHC RDW Plt Count Lymph % (Auto) [place] % (Auto) Lymph # [place] # Baso # Seg Neutrophils % Seg Neuts % (Manual) Lymphocytes % (Manual) Monocytes % (Manual) Eosinophils % (Manual) Basophils % (Manual) Nucleated RBC % Seg Neutrophils # Seg Neutrophils # Man Lymphocytes # (Manual) Monocytes # (Manual) Eosinophils # (Manual) Basophils # (Manual) PT INR Fibrinogen dRVVT Confirm Interp Factor V Activity POC ABG pH POC ABG pCO2 POC ABG pO2 ABG pO2 ABG HCO3 ABG Base Excess ABG Hemoglobin Oxyhemoglobin Sodium Potassium Chloride 97.8 L Carbon Dioxide BUN 37 H Creatinine 2.0 H Glucose 109 H POC Glucose 117 H 111 H Lactic Acid Calcium 7.9 L Phosphorus 1.80 L D Magnesium Direct Bilirubin AST ALT Alkaline Phosphatase Lactate Dehydrogenase Troponin T C-Reactive Protein Total Protein Albumin Prealbumin Triglycerides Cholesterol LDL Cholesterol Direct HDL Cholesterol Urine pH Urine WBC (Auto) Urine Creatinine Urine Total Protein Fluid Total Protein Vancomycin Trough Rheumatoid Factor Complement C4 Miscellaneous Test Crossmatch 11/26/16 11/27/16 11/27/16 17:14 04:50 06:02 WBC RBC Hgb Hct MCV MCH MCHC RDW Plt Count Lymph % (Auto) [place] % (Auto) Lymph # [place] # Baso # Seg Neutrophils % Seg Neuts % (Manual) Lymphocytes % (Manual) Monocytes % (Manual) Eosinophils % (Manual) Basophils % (Manual) Nucleated RBC % Seg Neutrophils # Seg Neutrophils # Man Lymphocytes # (Manual) Monocytes # (Manual) Eosinophils # (Manual) Basophils # (Manual) PT INR Fibrinogen dRVVT Confirm Interp Factor V Activity POC ABG pH POC ABG pCO2 POC ABG pO2 ABG pO2 75.2 L ABG HCO3 26.4 H ABG Base Excess ABG Hemoglobin 7.6 L Oxyhemoglobin 94.8 L Sodium Potassium Chloride Carbon Dioxide BUN 49 H Creatinine 2.3 H Glucose POC Glucose 115 H Lactic Acid Calcium Phosphorus 1.50 L Magnesium Direct Bilirubin AST ALT Alkaline Phosphatase Lactate Dehydrogenase Troponin T C-Reactive Protein Total Protein Albumin Prealbumin Triglycerides Cholesterol LDL Cholesterol Direct HDL Cholesterol Urine pH Urine WBC (Auto) Urine Creatinine Urine Total Protein Fluid Total Protein Vancomycin Trough Rheumatoid Factor Complement C4 Miscellaneous Test Crossmatch 11/27/16 11/27/16 11/27/16 06:02 11:25 17:25 WBC 11.6 H RBC 2.75 L Hgb 7.6 L Hct 23.4 L MCV MCH MCHC RDW 16.5 H Plt Count Lymph % (Auto) [place] % (Auto) Lymph # [place] # Baso # Seg Neutrophils % Seg Neuts % (Manual) Lymphocytes % (Manual) Monocytes % (Manual) Eosinophils % (Manual) Basophils % (Manual) Nucleated RBC % Seg Neutrophils # Seg Neutrophils # Man Lymphocytes # (Manual) Monocytes # (Manual) Eosinophils # (Manual) Basophils # (Manual) PT INR Fibrinogen dRVVT Confirm Interp Factor V Activity POC ABG pH POC ABG pCO2 POC ABG pO2 ABG pO2 ABG HCO3 ABG Base Excess ABG Hemoglobin Oxyhemoglobin Sodium Potassium Chloride Carbon Dioxide BUN Creatinine Glucose POC Glucose 114 H 126 H Lactic Acid Calcium Phosphorus Magnesium Direct Bilirubin AST ALT Alkaline Phosphatase Lactate Dehydrogenase Troponin T C-Reactive Protein Total Protein Albumin Prealbumin Triglycerides Cholesterol LDL Cholesterol Direct HDL Cholesterol Urine pH Urine WBC (Auto) Urine Creatinine Urine Total Protein Fluid Total Protein Vancomycin Trough Rheumatoid Factor Complement C4 Miscellaneous Test Crossmatch 11/28/16 11/28/16 11/28/16 04:45 05:33 05:44 WBC RBC Hgb Hct MCV MCH MCHC RDW Plt Count Lymph % (Auto) [place] % (Auto) Lymph # [place] # Baso # Seg Neutrophils % Seg Neuts % (Manual) Lymphocytes % (Manual) Monocytes % (Manual) Eosinophils % (Manual) Basophils % (Manual) Nucleated RBC % Seg Neutrophils # Seg Neutrophils # Man Lymphocytes # (Manual) Monocytes # (Manual) Eosinophils # (Manual) Basophils # (Manual) PT INR Fibrinogen dRVVT Confirm Interp Factor V Activity POC ABG pH POC ABG pCO2 POC ABG pO2 ABG pO2 99.3 H ABG HCO3 ABG Base Excess ABG Hemoglobin 8.3 L Oxyhemoglobin Sodium Potassium Chloride Carbon Dioxide BUN 63 H Creatinine 2.4 H Glucose 102 H POC Glucose 108 H Lactic Acid Calcium Phosphorus 1.80 L Magnesium Direct Bilirubin AST ALT Alkaline Phosphatase Lactate Dehydrogenase Troponin T C-Reactive Protein Total Protein Albumin Prealbumin Triglycerides Cholesterol LDL Cholesterol Direct HDL Cholesterol Urine pH Urine WBC (Auto) Urine Creatinine Urine Total Protein Fluid Total Protein Vancomycin Trough Rheumatoid Factor Complement C4 Miscellaneous Test Crossmatch 11/28/16 11/28/16 11/28/16 12:31 16:09 23:46 WBC RBC Hgb Hct MCV MCH MCHC RDW Plt Count Lymph % (Auto) [place] % (Auto) Lymph # [place] # Baso # Seg Neutrophils % Seg Neuts % (Manual) Lymphocytes % (Manual) Monocytes % (Manual) Eosinophils % (Manual) Basophils % (Manual) Nucleated RBC % Seg Neutrophils # Seg Neutrophils # Man Lymphocytes # (Manual) Monocytes # (Manual) Eosinophils # (Manual) Basophils # (Manual) PT INR Fibrinogen dRVVT Confirm Interp Factor V Activity POC ABG pH POC ABG pCO2 POC ABG pO2 ABG pO2 ABG HCO3 ABG Base Excess ABG Hemoglobin Oxyhemoglobin Sodium Potassium Chloride Carbon Dioxide BUN Creatinine Glucose POC Glucose 126 H 111 H 119 H Lactic Acid Calcium Phosphorus Magnesium Direct Bilirubin AST ALT Alkaline Phosphatase Lactate Dehydrogenase Troponin T C-Reactive Protein Total Protein Albumin Prealbumin Triglycerides Cholesterol LDL Cholesterol Direct HDL Cholesterol Urine pH Urine WBC (Auto) Urine Creatinine Urine Total Protein Fluid Total Protein Vancomycin Trough Rheumatoid Factor Complement C4 Miscellaneous Test Crossmatch 11/29/16 11/29/16 11/29/16 03:33 04:52 05:10 WBC RBC Hgb Hct MCV MCH MCHC RDW Plt Count Lymph % (Auto) [place] % (Auto) Lymph # [place] # Baso # Seg Neutrophils % Seg Neuts % (Manual) Lymphocytes % (Manual) Monocytes % (Manual) Eosinophils % (Manual) Basophils % (Manual) Nucleated RBC % Seg Neutrophils # Seg Neutrophils # Man Lymphocytes # (Manual) Monocytes # (Manual) Eosinophils # (Manual) Basophils # (Manual) PT INR Fibrinogen dRVVT Confirm Interp Factor V Activity POC ABG pH POC ABG pCO2 POC ABG pO2 ABG pO2 ABG HCO3 ABG Base Excess ABG Hemoglobin 7.0 L Oxyhemoglobin 94.9 L Sodium Potassium Chloride Carbon Dioxide BUN 73 H Creatinine 2.7 H Glucose POC Glucose 108 H Lactic Acid Calcium Phosphorus Magnesium Direct Bilirubin AST ALT Alkaline Phosphatase Lactate Dehydrogenase Troponin T C-Reactive Protein Total Protein Albumin Prealbumin Triglycerides Cholesterol LDL Cholesterol Direct HDL Cholesterol Urine pH Urine WBC (Auto) Urine Creatinine Urine Total Protein Fluid Total Protein Vancomycin Trough Rheumatoid Factor Complement C4 Miscellaneous Test Crossmatch 11/29/16 11/29/16 11/29/16 12:16 18:05 23:46 WBC RBC Hgb Hct MCV MCH MCHC RDW Plt Count Lymph % (Auto) [place] % (Auto) Lymph # [place] # Baso # Seg Neutrophils % Seg Neuts % (Manual) Lymphocytes % (Manual) Monocytes % (Manual) Eosinophils % (Manual) Basophils % (Manual) Nucleated RBC % Seg Neutrophils # Seg Neutrophils # Man Lymphocytes # (Manual) Monocytes # (Manual) Eosinophils # (Manual) Basophils # (Manual) PT INR Fibrinogen dRVVT Confirm Interp Factor V Activity POC ABG pH POC ABG pCO2 POC ABG pO2 ABG pO2 ABG HCO3 ABG Base Excess ABG Hemoglobin Oxyhemoglobin Sodium Potassium Chloride Carbon Dioxide BUN Creatinine Glucose POC Glucose 133 H 146 H 141 H Lactic Acid Calcium Phosphorus Magnesium Direct Bilirubin AST ALT Alkaline Phosphatase Lactate Dehydrogenase Troponin T C-Reactive Protein Total Protein Albumin Prealbumin Triglycerides Cholesterol LDL Cholesterol Direct HDL Cholesterol Urine pH Urine WBC (Auto) Urine Creatinine Urine Total Protein Fluid Total Protein Vancomycin Trough Rheumatoid Factor Complement C4 Miscellaneous Test Crossmatch 11/30/16 11/30/16 11/30/16 04:17 04:17 04:32 WBC 12.0 H RBC 2.80 L Hgb 7.8 L Hct 23.6 L MCV MCH MCHC RDW 16.6 H Plt Count Lymph % (Auto) [place] % (Auto) 11.3 H Lymph # [place] # 1.4 H Baso # Seg Neutrophils % Seg Neuts % (Manual) Lymphocytes % (Manual) Monocytes % (Manual) Eosinophils % (Manual) Basophils % (Manual) Nucleated RBC % Seg Neutrophils # 8.2 H Seg Neutrophils # Man Lymphocytes # (Manual) Monocytes # (Manual) Eosinophils # (Manual) Basophils # (Manual) PT INR Fibrinogen dRVVT Confirm Interp Factor V Activity POC ABG pH POC ABG pCO2 POC ABG pO2 ABG pO2 ABG HCO3 ABG Base Excess ABG Hemoglobin Oxyhemoglobin Sodium 169 H* D Potassium 5.1 H Chloride 121.5 H Carbon Dioxide BUN 34 H Creatinine 1.3 H D Glucose 133 H POC Glucose 131 H Lactic Acid Calcium 10.3 H Phosphorus Magnesium Direct Bilirubin AST ALT Alkaline Phosphatase Lactate Dehydrogenase Troponin T C-Reactive Protein Total Protein Albumin Prealbumin Triglycerides Cholesterol LDL Cholesterol Direct HDL Cholesterol Urine pH Urine WBC (Auto) Urine Creatinine Urine Total Protein Fluid Total Protein Vancomycin Trough Rheumatoid Factor Complement C4 Miscellaneous Test Crossmatch 11/30/16 11/30/16 11/30/16 05:45 11:10 17:26 WBC RBC Hgb Hct MCV MCH MCHC RDW Plt Count Lymph % (Auto) [place] % (Auto) Lymph # [place] # Baso # Seg Neutrophils % Seg Neuts % (Manual) Lymphocytes % (Manual) Monocytes % (Manual) Eosinophils % (Manual) Basophils % (Manual) Nucleated RBC % Seg Neutrophils # Seg Neutrophils # Man Lymphocytes # (Manual) Monocytes # (Manual) Eosinophils # (Manual) Basophils # (Manual) PT INR Fibrinogen dRVVT Confirm Interp Factor V Activity POC ABG pH POC ABG pCO2 POC ABG pO2 ABG pO2 ABG HCO3 ABG Base Excess ABG Hemoglobin Oxyhemoglobin Sodium Potassium Chloride Carbon Dioxide BUN 45 H Creatinine 1.6 H Glucose 131 H POC Glucose 146 H 134 H Lactic Acid Calcium Phosphorus Magnesium Direct Bilirubin AST ALT Alkaline Phosphatase Lactate Dehydrogenase Troponin T C-Reactive Protein Total Protein Albumin Prealbumin Triglycerides Cholesterol LDL Cholesterol Direct HDL Cholesterol Urine pH Urine WBC (Auto) Urine Creatinine Urine Total Protein Fluid Total Protein Vancomycin Trough Rheumatoid Factor Complement C4 Miscellaneous Test Crossmatch 11/30/16 12/01/16 12/01/16 23:35 00:06 03:35 WBC RBC Hgb Hct MCV MCH MCHC RDW Plt Count Lymph % (Auto) [place] % (Auto) Lymph # [place] # Baso # Seg Neutrophils % Seg Neuts % (Manual) Lymphocytes % (Manual) Monocytes % (Manual) Eosinophils % (Manual) Basophils % (Manual) Nucleated RBC % Seg Neutrophils # Seg Neutrophils # Man Lymphocytes # (Manual) Monocytes # (Manual) Eosinophils # (Manual) Basophils # (Manual) PT INR Fibrinogen dRVVT Confirm Interp Factor V Activity POC ABG pH POC ABG pCO2 POC ABG pO2 ABG pO2 ABG HCO3 ABG Base Excess ABG Hemoglobin 6.9 L Oxyhemoglobin Sodium Potassium Chloride Carbon Dioxide BUN 58 H Creatinine 1.8 H Glucose 146 H POC Glucose 151 H Lactic Acid Calcium Phosphorus Magnesium Direct Bilirubin AST ALT Alkaline Phosphatase Lactate Dehydrogenase Troponin T C-Reactive Protein Total Protein Albumin Prealbumin Triglycerides Cholesterol LDL Cholesterol Direct HDL Cholesterol Urine pH Urine WBC (Auto) Urine Creatinine Urine Total Protein Fluid Total Protein Vancomycin Trough Rheumatoid Factor Complement C4 Miscellaneous Test Crossmatch 12/01/16 12/01/16 12/01/16 03:35 05:47 11:52 WBC 12.3 H RBC 2.82 L Hgb 7.8 L Hct 23.7 L MCV MCH MCHC RDW 16.7 H Plt Count Lymph % (Auto) [place] % (Auto) 9.8 H Lymph # [place] # 1.2 H Baso # Seg Neutrophils % Seg Neuts % (Manual) Lymphocytes % (Manual) Monocytes % (Manual) Eosinophils % (Manual) Basophils % (Manual) Nucleated RBC % Seg Neutrophils # 8.4 H Seg Neutrophils # Man Lymphocytes # (Manual) Monocytes # (Manual) Eosinophils # (Manual) Basophils # (Manual) PT INR Fibrinogen dRVVT Confirm Interp Factor V Activity POC ABG pH POC ABG pCO2 POC ABG pO2 ABG pO2 ABG HCO3 ABG Base Excess ABG Hemoglobin Oxyhemoglobin Sodium Potassium Chloride Carbon Dioxide BUN Creatinine Glucose POC Glucose 152 H 152 H Lactic Acid Calcium Phosphorus Magnesium Direct Bilirubin AST ALT Alkaline Phosphatase Lactate Dehydrogenase Troponin T C-Reactive Protein Total Protein Albumin Prealbumin Triglycerides Cholesterol LDL Cholesterol Direct HDL Cholesterol Urine pH Urine WBC (Auto) Urine Creatinine Urine Total Protein Fluid Total Protein Vancomycin Trough Rheumatoid Factor Complement C4 Miscellaneous Test Crossmatch 12/01/16 12/01/16 12/02/16 17:40 23:41 05:00 WBC RBC Hgb Hct MCV MCH MCHC RDW Plt Count Lymph % (Auto) [place] % (Auto) Lymph # [place] # Baso # Seg Neutrophils % Seg Neuts % (Manual) Lymphocytes % (Manual) Monocytes % (Manual) Eosinophils % (Manual) Basophils % (Manual) Nucleated RBC % Seg Neutrophils # Seg Neutrophils # Man Lymphocytes # (Manual) Monocytes # (Manual) Eosinophils # (Manual) Basophils # (Manual) PT INR Fibrinogen dRVVT Confirm Interp Factor V Activity POC ABG pH POC ABG pCO2 POC ABG pO2 ABG pO2 ABG HCO3 ABG Base Excess ABG Hemoglobin Oxyhemoglobin Sodium Potassium Chloride Carbon Dioxide BUN 45 H Creatinine Glucose 115 H POC Glucose 140 H 144 H Lactic Acid Calcium Phosphorus Magnesium Direct Bilirubin AST ALT Alkaline Phosphatase Lactate Dehydrogenase Troponin T C-Reactive Protein Total Protein Albumin Prealbumin Triglycerides Cholesterol LDL Cholesterol Direct HDL Cholesterol Urine pH Urine WBC (Auto) Urine Creatinine Urine Total Protein Fluid Total Protein Vancomycin Trough Rheumatoid Factor Complement C4 Miscellaneous Test Crossmatch 12/02/16 12/02/16 12/02/16 05:31 11:20 17:38 WBC RBC Hgb Hct MCV MCH MCHC RDW Plt Count Lymph % (Auto) [place] % (Auto) Lymph # [place] # Baso # Seg Neutrophils % Seg Neuts % (Manual) Lymphocytes % (Manual) Monocytes % (Manual) Eosinophils % (Manual) Basophils % (Manual) Nucleated RBC % Seg Neutrophils # Seg Neutrophils # Man Lymphocytes # (Manual) Monocytes # (Manual) Eosinophils # (Manual) Basophils # (Manual) PT INR Fibrinogen dRVVT Confirm Interp Factor V Activity POC ABG pH POC ABG pCO2 POC ABG pO2 ABG pO2 ABG HCO3 ABG Base Excess ABG Hemoglobin Oxyhemoglobin Sodium Potassium Chloride Carbon Dioxide BUN Creatinine Glucose POC Glucose 136 H 177 H 139 H Lactic Acid Calcium Phosphorus Magnesium Direct Bilirubin AST ALT Alkaline Phosphatase Lactate Dehydrogenase Troponin T C-Reactive Protein Total Protein Albumin Prealbumin Triglycerides Cholesterol LDL Cholesterol Direct HDL Cholesterol Urine pH Urine WBC (Auto) Urine Creatinine Urine Total Protein Fluid Total Protein Vancomycin Trough Rheumatoid Factor Complement C4 Miscellaneous Test Crossmatch 12/02/16 12/03/16 12/03/16 23:43 04:00 04:00 WBC 20.4 H RBC 2.74 L Hgb 7.4 L Hct 23.6 L MCV MCH 27 L MCHC RDW 17.1 H Plt Count Lymph % (Auto) [place] % (Auto) Lymph # [place] # Baso # Seg Neutrophils % Seg Neuts % (Manual) 31.0 L Lymphocytes % (Manual) Monocytes % (Manual) Eosinophils % (Manual) Basophils % (Manual) Nucleated RBC % Seg Neutrophils # Seg Neutrophils # Man Lymphocytes # (Manual) Monocytes # (Manual) Eosinophils # (Manual) Basophils # (Manual) PT INR Fibrinogen dRVVT Confirm Interp Factor V Activity POC ABG pH POC ABG pCO2 POC ABG pO2 ABG pO2 ABG HCO3 ABG Base Excess ABG Hemoglobin Oxyhemoglobin Sodium Potassium Chloride Carbon Dioxide BUN 61 H Creatinine 1.6 H Glucose 119 H POC Glucose 158 H Lactic Acid Calcium Phosphorus Magnesium Direct Bilirubin AST ALT Alkaline Phosphatase Lactate Dehydrogenase Troponin T C-Reactive Protein Total Protein Albumin Prealbumin Triglycerides Cholesterol LDL Cholesterol Direct HDL Cholesterol Urine pH Urine WBC (Auto) Urine Creatinine Urine Total Protein Fluid Total Protein Vancomycin Trough Rheumatoid Factor Complement C4 Miscellaneous Test Crossmatch 12/03/16 12/03/16 12/03/16 05:02 12:11 18:16 WBC RBC Hgb Hct MCV MCH MCHC RDW Plt Count Lymph % (Auto) [place] % (Auto) Lymph # [place] # Baso # Seg Neutrophils % Seg Neuts % (Manual) Lymphocytes % (Manual) Monocytes % (Manual) Eosinophils % (Manual) Basophils % (Manual) Nucleated RBC % Seg Neutrophils # Seg Neutrophils # Man Lymphocytes # (Manual) Monocytes # (Manual) Eosinophils # (Manual) Basophils # (Manual) PT INR Fibrinogen dRVVT Confirm Interp Factor V Activity POC ABG pH POC ABG pCO2 POC ABG pO2 ABG pO2 ABG HCO3 ABG Base Excess ABG Hemoglobin Oxyhemoglobin Sodium Potassium Chloride Carbon Dioxide BUN Creatinine Glucose POC Glucose 146 H 157 H 124 H Lactic Acid Calcium Phosphorus Magnesium Direct Bilirubin AST ALT Alkaline Phosphatase Lactate Dehydrogenase Troponin T C-Reactive Protein Total Protein Albumin Prealbumin Triglycerides Cholesterol LDL Cholesterol Direct HDL Cholesterol Urine pH Urine WBC (Auto) Urine Creatinine Urine Total Protein Fluid Total Protein Vancomycin Trough Rheumatoid Factor Complement C4 Miscellaneous Test Crossmatch 12/03/16 12/04/16 12/04/16 23:41 04:00 04:45 WBC RBC Hgb Hct MCV MCH MCHC RDW Plt Count Lymph % (Auto) [place] % (Auto) Lymph # [place] # Baso # Seg Neutrophils % Seg Neuts % (Manual) Lymphocytes % (Manual) Monocytes % (Manual) Eosinophils % (Manual) Basophils % (Manual) Nucleated RBC % Seg Neutrophils # Seg Neutrophils # Man Lymphocytes # (Manual) Monocytes # (Manual) Eosinophils # (Manual) Basophils # (Manual) PT INR Fibrinogen dRVVT Confirm Interp Factor V Activity POC ABG pH POC ABG pCO2 POC ABG pO2 ABG pO2 ABG HCO3 ABG Base Excess ABG Hemoglobin Oxyhemoglobin Sodium Potassium Chloride Carbon Dioxide BUN 76 H Creatinine 1.6 H Glucose POC Glucose 130 H 136 H Lactic Acid Calcium Phosphorus Magnesium Direct Bilirubin AST ALT Alkaline Phosphatase 155 H Lactate Dehydrogenase Troponin T C-Reactive Protein Total Protein 5.5 L Albumin 1.5 L Prealbumin Triglycerides Cholesterol LDL Cholesterol Direct HDL Cholesterol Urine pH Urine WBC (Auto) Urine Creatinine Urine Total Protein Fluid Total Protein Vancomycin Trough Rheumatoid Factor Complement C4 Miscellaneous Test Crossmatch 12/04/16 12/04/16 12/05/16 12:08 17:23 00:10 WBC RBC Hgb Hct MCV MCH MCHC RDW Plt Count Lymph % (Auto) [place] % (Auto) Lymph # [place] # Baso # Seg Neutrophils % Seg Neuts % (Manual) Lymphocytes % (Manual) Monocytes % (Manual) Eosinophils % (Manual) Basophils % (Manual) Nucleated RBC % Seg Neutrophils # Seg Neutrophils # Man Lymphocytes # (Manual) Monocytes # (Manual) Eosinophils # (Manual) Basophils # (Manual) PT INR Fibrinogen dRVVT Confirm Interp Factor V Activity POC ABG pH POC ABG pCO2 POC ABG pO2 ABG pO2 ABG HCO3 ABG Base Excess ABG Hemoglobin Oxyhemoglobin Sodium Potassium Chloride Carbon Dioxide BUN Creatinine Glucose POC Glucose 114 H 129 H 124 H Lactic Acid Calcium Phosphorus Magnesium Direct Bilirubin AST ALT Alkaline Phosphatase Lactate Dehydrogenase Troponin T C-Reactive Protein Total Protein Albumin Prealbumin Triglycerides Cholesterol LDL Cholesterol Direct HDL Cholesterol Urine pH Urine WBC (Auto) Urine Creatinine Urine Total Protein Fluid Total Protein Vancomycin Trough Rheumatoid Factor Complement C4 Miscellaneous Test Crossmatch 12/05/16 12/05/16 12/05/16 05:00 05:00 05:18 WBC RBC Hgb Hct MCV MCH MCHC RDW Plt Count Lymph % (Auto) [place] % (Auto) Lymph # [place] # Baso # Seg Neutrophils % Seg Neuts % (Manual) Lymphocytes % (Manual) Monocytes % (Manual) Eosinophils % (Manual) Basophils % (Manual) Nucleated RBC % Seg Neutrophils # Seg Neutrophils # Man Lymphocytes # (Manual) Monocytes # (Manual) Eosinophils # (Manual) Basophils # (Manual) PT INR Fibrinogen dRVVT Confirm Interp Factor V Activity POC ABG pH POC ABG pCO2 POC ABG pO2 ABG pO2 ABG HCO3 ABG Base Excess ABG Hemoglobin Oxyhemoglobin Sodium Potassium Chloride Carbon Dioxide 21 L BUN 85 H Creatinine 1.9 H Glucose 131 H POC Glucose 154 H Lactic Acid Calcium Phosphorus Magnesium Direct Bilirubin AST ALT Alkaline Phosphatase Lactate Dehydrogenase Troponin T C-Reactive Protein 19.30 H Total Protein Albumin Prealbumin Triglycerides Cholesterol LDL Cholesterol Direct HDL Cholesterol Urine pH Urine WBC (Auto) Urine Creatinine Urine Total Protein Fluid Total Protein Vancomycin Trough Rheumatoid Factor Complement C4 Miscellaneous Test Crossmatch 12/05/16 12/05/16 12/05/16 11:43 17:46 23:25 WBC RBC Hgb Hct MCV MCH MCHC RDW Plt Count Lymph % (Auto) [place] % (Auto) Lymph # [place] # Baso # Seg Neutrophils % Seg Neuts % (Manual) Lymphocytes % (Manual) Monocytes % (Manual) Eosinophils % (Manual) Basophils % (Manual) Nucleated RBC % Seg Neutrophils # Seg Neutrophils # Man Lymphocytes # (Manual) Monocytes # (Manual) Eosinophils # (Manual) Basophils # (Manual) PT INR Fibrinogen dRVVT Confirm Interp Factor V Activity POC ABG pH POC ABG pCO2 POC ABG pO2 ABG pO2 ABG HCO3 ABG Base Excess ABG Hemoglobin Oxyhemoglobin Sodium Potassium Chloride Carbon Dioxide BUN Creatinine Glucose POC Glucose 117 H 113 H 111 H Lactic Acid Calcium Phosphorus Magnesium Direct Bilirubin AST ALT Alkaline Phosphatase Lactate Dehydrogenase Troponin T C-Reactive Protein Total Protein Albumin Prealbumin Triglycerides Cholesterol LDL Cholesterol Direct HDL Cholesterol Urine pH Urine WBC (Auto) Urine Creatinine Urine Total Protein Fluid Total Protein Vancomycin Trough Rheumatoid Factor Complement C4 Miscellaneous Test Crossmatch 12/05/16 12/06/16 12/06/16 Unknown 04:58 06:00 WBC RBC Hgb Hct MCV MCH MCHC RDW Plt Count Lymph % (Auto) [place] % (Auto) Lymph # [place] # Baso # Seg Neutrophils % Seg Neuts % (Manual) Lymphocytes % (Manual) Monocytes % (Manual) Eosinophils % (Manual) Basophils % (Manual) Nucleated RBC % Seg Neutrophils # Seg Neutrophils # Man Lymphocytes # (Manual) Monocytes # (Manual) Eosinophils # (Manual) Basophils # (Manual) PT INR Fibrinogen dRVVT Confirm Interp Factor V Activity POC ABG pH POC ABG pCO2 POC ABG pO2 ABG pO2 75.2 L ABG HCO3 ABG Base Excess -3.4 L ABG Hemoglobin 7.4 L Oxyhemoglobin 94.5 L Sodium Potassium Chloride Carbon Dioxide 20 L BUN 99 H Creatinine 2.1 H Glucose 126 H POC Glucose 145 H Lactic Acid Calcium Phosphorus 4.80 H Magnesium Direct Bilirubin AST ALT Alkaline Phosphatase Lactate Dehydrogenase Troponin T C-Reactive Protein Total Protein Albumin Prealbumin Triglycerides Cholesterol LDL Cholesterol Direct HDL Cholesterol Urine pH Urine WBC (Auto) Urine Creatinine Urine Total Protein Fluid Total Protein Vancomycin Trough Rheumatoid Factor Complement C4 Miscellaneous Test Crossmatch 12/06/16 12/06/16 12/06/16 06:46 11:54 17:55 WBC RBC Hgb 8.3 L Hct 26.4 L MCV MCH MCHC RDW Plt Count Lymph % (Auto) [place] % (Auto) Lymph # [place] # Baso # Seg Neutrophils % Seg Neuts % (Manual) Lymphocytes % (Manual) Monocytes % (Manual) Eosinophils % (Manual) Basophils % (Manual) Nucleated RBC % Seg Neutrophils # Seg Neutrophils # Man Lymphocytes # (Manual) Monocytes # (Manual) Eosinophils # (Manual) Basophils # (Manual) PT INR Fibrinogen dRVVT Confirm Interp Factor V Activity POC ABG pH POC ABG pCO2 POC ABG pO2 ABG pO2 ABG HCO3 ABG Base Excess ABG Hemoglobin Oxyhemoglobin Sodium Potassium Chloride Carbon Dioxide BUN Creatinine Glucose POC Glucose 126 H 157 H Lactic Acid Calcium Phosphorus Magnesium Direct Bilirubin AST ALT Alkaline Phosphatase Lactate Dehydrogenase Troponin T C-Reactive Protein Total Protein Albumin Prealbumin Triglycerides Cholesterol LDL Cholesterol Direct HDL Cholesterol Urine pH Urine WBC (Auto) Urine Creatinine Urine Total Protein Fluid Total Protein Vancomycin Trough Rheumatoid Factor Complement C4 Miscellaneous Test Crossmatch 12/06/16 12/07/16 12/07/16 23:59 05:34 06:30 WBC RBC Hgb Hct MCV MCH MCHC RDW Plt Count Lymph % (Auto) [place] % (Auto) Lymph # [place] # Baso # Seg Neutrophils % Seg Neuts % (Manual) Lymphocytes % (Manual) Monocytes % (Manual) Eosinophils % (Manual) Basophils % (Manual) Nucleated RBC % Seg Neutrophils # Seg Neutrophils # Man Lymphocytes # (Manual) Monocytes # (Manual) Eosinophils # (Manual) Basophils # (Manual) PT INR Fibrinogen dRVVT Confirm Interp Factor V Activity POC ABG pH POC ABG pCO2 POC ABG pO2 ABG pO2 ABG HCO3 ABG Base Excess ABG Hemoglobin Oxyhemoglobin Sodium Potassium Chloride Carbon Dioxide BUN 67 H Creatinine 1.4 H Glucose 126 H POC Glucose 129 H 129 H Lactic Acid Calcium Phosphorus Magnesium Direct Bilirubin AST ALT Alkaline Phosphatase Lactate Dehydrogenase Troponin T C-Reactive Protein Total Protein Albumin Prealbumin Triglycerides Cholesterol LDL Cholesterol Direct HDL Cholesterol Urine pH Urine WBC (Auto) Urine Creatinine Urine Total Protein Fluid Total Protein Vancomycin Trough Rheumatoid Factor Complement C4 Miscellaneous Test Crossmatch 12/07/16 12/07/16 12/07/16 06:30 08:00 09:45 WBC 18.8 H RBC 2.52 L Hgb 6.9 L 6.8 L Hct 21.2 L 21.1 L MCV MCH 27 L MCHC RDW 18.0 H Plt Count Lymph % (Auto) [place] % (Auto) 9.9 H Lymph # [place] # 1.9 H Baso # Seg Neutrophils % 71.8 H Seg Neuts % (Manual) Lymphocytes % (Manual) Monocytes % (Manual) Eosinophils % (Manual) Basophils % (Manual) Nucleated RBC % Seg Neutrophils # 13.5 H Seg Neutrophils # Man Lymphocytes # (Manual) Monocytes # (Manual) Eosinophils # (Manual) Basophils # (Manual) PT INR Fibrinogen dRVVT Confirm Interp Factor V Activity POC ABG pH POC ABG pCO2 POC ABG pO2 ABG pO2 ABG HCO3 ABG Base Excess ABG Hemoglobin Oxyhemoglobin Sodium Potassium Chloride Carbon Dioxide BUN Creatinine Glucose POC Glucose Lactic Acid Calcium Phosphorus Magnesium Direct Bilirubin AST ALT Alkaline Phosphatase Lactate Dehydrogenase Troponin T C-Reactive Protein Total Protein Albumin Prealbumin Triglycerides Cholesterol LDL Cholesterol Direct HDL Cholesterol Urine pH Urine WBC (Auto) Urine Creatinine Urine Total Protein Fluid Total Protein Vancomycin Trough Rheumatoid Factor Complement C4 Miscellaneous Test Crossmatch See Detail 12/07/16 12/07/16 12/07/16 11:44 18:19 23:59 WBC RBC Hgb Hct MCV MCH MCHC RDW Plt Count Lymph % (Auto) [place] % (Auto) Lymph # [place] # Baso # Seg Neutrophils % Seg Neuts % (Manual) Lymphocytes % (Manual) Monocytes % (Manual) Eosinophils % (Manual) Basophils % (Manual) Nucleated RBC % Seg Neutrophils # Seg Neutrophils # Man Lymphocytes # (Manual) Monocytes # (Manual) Eosinophils # (Manual) Basophils # (Manual) PT INR Fibrinogen dRVVT Confirm Interp Factor V Activity POC ABG pH POC ABG pCO2 POC ABG pO2 ABG pO2 ABG HCO3 ABG Base Excess ABG Hemoglobin Oxyhemoglobin Sodium Potassium Chloride Carbon Dioxide BUN Creatinine Glucose POC Glucose 137 H 138 H 133 H Lactic Acid Calcium Phosphorus Magnesium Direct Bilirubin AST ALT Alkaline Phosphatase Lactate Dehydrogenase Troponin T C-Reactive Protein Total Protein Albumin Prealbumin Triglycerides Cholesterol LDL Cholesterol Direct HDL Cholesterol Urine pH Urine WBC (Auto) Urine Creatinine Urine Total Protein Fluid Total Protein Vancomycin Trough Rheumatoid Factor Complement C4 Miscellaneous Test Crossmatch 12/08/16 12/08/16 12/08/16 05:25 05:30 05:30 WBC 23.8 H RBC 2.88 L Hgb 8.1 L Hct 24.3 L MCV MCH MCHC RDW 16.7 H Plt Count Lymph % (Auto) [place] % (Auto) Lymph # [place] # Baso # Seg Neutrophils % Seg Neuts % (Manual) 76.0 H Lymphocytes % (Manual) 9.0 L Monocytes % (Manual) 9.0 H Eosinophils % (Manual) Basophils % (Manual) Nucleated RBC % Seg Neutrophils # Seg Neutrophils # Man 18.1 H Lymphocytes # (Manual) Monocytes # (Manual) 2.1 H Eosinophils # (Manual) Basophils # (Manual) PT INR Fibrinogen dRVVT Confirm Interp Factor V Activity POC ABG pH POC ABG pCO2 POC ABG pO2 ABG pO2 ABG HCO3 ABG Base Excess ABG Hemoglobin Oxyhemoglobin Sodium Potassium Chloride Carbon Dioxide 21 L BUN 76 H Creatinine 1.6 H Glucose 133 H POC Glucose 177 H Lactic Acid Calcium Phosphorus Magnesium Direct Bilirubin AST ALT Alkaline Phosphatase Lactate Dehydrogenase Troponin T C-Reactive Protein Total Protein Albumin Prealbumin Triglycerides Cholesterol LDL Cholesterol Direct HDL Cholesterol Urine pH Urine WBC (Auto) Urine Creatinine Urine Total Protein Fluid Total Protein Vancomycin Trough Rheumatoid Factor Complement C4 Miscellaneous Test Crossmatch 12/08/16 12/08/16 12/09/16 11:45 18:00 00:00 WBC RBC Hgb Hct MCV MCH MCHC RDW Plt Count Lymph % (Auto) [place] % (Auto) Lymph # [place] # Baso # Seg Neutrophils % Seg Neuts % (Manual) Lymphocytes % (Manual) Monocytes % (Manual) Eosinophils % (Manual) Basophils % (Manual) Nucleated RBC % Seg Neutrophils # Seg Neutrophils # Man Lymphocytes # (Manual) Monocytes # (Manual) Eosinophils # (Manual) Basophils # (Manual) PT INR Fibrinogen dRVVT Confirm Interp Factor V Activity POC ABG pH POC ABG pCO2 POC ABG pO2 ABG pO2 ABG HCO3 ABG Base Excess ABG Hemoglobin Oxyhemoglobin Sodium Potassium Chloride Carbon Dioxide BUN Creatinine Glucose POC Glucose 163 H 123 H 137 H Lactic Acid Calcium Phosphorus Magnesium Direct Bilirubin AST ALT Alkaline Phosphatase Lactate Dehydrogenase Troponin T C-Reactive Protein Total Protein Albumin Prealbumin Triglycerides Cholesterol LDL Cholesterol Direct HDL Cholesterol Urine pH Urine WBC (Auto) Urine Creatinine Urine Total Protein Fluid Total Protein Vancomycin Trough Rheumatoid Factor Complement C4 Miscellaneous Test Crossmatch 12/09/16 12/09/16 12/09/16 05:34 06:00 06:00 WBC 15.5 H RBC 2.87 L Hgb 8.0 L Hct 24.2 L MCV MCH MCHC RDW 17.2 H Plt Count Lymph % (Auto) [place] % (Auto) 11.6 H Lymph # [place] # 1.8 H Baso # Seg Neutrophils % 70.8 H Seg Neuts % (Manual) Lymphocytes % (Manual) Monocytes % (Manual) Eosinophils % (Manual) Basophils % (Manual) Nucleated RBC % Seg Neutrophils # 11.0 H Seg Neutrophils # Man Lymphocytes # (Manual) Monocytes # (Manual) Eosinophils # (Manual) Basophils # (Manual) PT INR Fibrinogen dRVVT Confirm Interp Factor V Activity POC ABG pH POC ABG pCO2 POC ABG pO2 ABG pO2 ABG HCO3 ABG Base Excess ABG Hemoglobin Oxyhemoglobin Sodium Potassium Chloride Carbon Dioxide BUN 51 H Creatinine Glucose 117 H POC Glucose 136 H Lactic Acid Calcium Phosphorus Magnesium Direct Bilirubin AST ALT Alkaline Phosphatase Lactate Dehydrogenase Troponin T C-Reactive Protein Total Protein Albumin Prealbumin Triglycerides Cholesterol LDL Cholesterol Direct HDL Cholesterol Urine pH Urine WBC (Auto) Urine Creatinine Urine Total Protein Fluid Total Protein Vancomycin Trough Rheumatoid Factor Complement C4 Miscellaneous Test Crossmatch 12/09/16 12/09/16 12/09/16 12:29 17:52 23:10 WBC RBC Hgb Hct MCV MCH MCHC RDW Plt Count Lymph % (Auto) [place] % (Auto) Lymph # [place] # Baso # Seg Neutrophils % Seg Neuts % (Manual) Lymphocytes % (Manual) Monocytes % (Manual) Eosinophils % (Manual) Basophils % (Manual) Nucleated RBC % Seg Neutrophils # Seg Neutrophils # Man Lymphocytes # (Manual) Monocytes # (Manual) Eosinophils # (Manual) Basophils # (Manual) PT INR Fibrinogen dRVVT Confirm Interp Factor V Activity POC ABG pH POC ABG pCO2 POC ABG pO2 ABG pO2 ABG HCO3 ABG Base Excess ABG Hemoglobin Oxyhemoglobin Sodium Potassium Chloride Carbon Dioxide BUN Creatinine Glucose POC Glucose 139 H 140 H 129 H Lactic Acid Calcium Phosphorus Magnesium Direct Bilirubin AST ALT Alkaline Phosphatase Lactate Dehydrogenase Troponin T C-Reactive Protein Total Protein Albumin Prealbumin Triglycerides Cholesterol LDL Cholesterol Direct HDL Cholesterol Urine pH Urine WBC (Auto) Urine Creatinine Urine Total Protein Fluid Total Protein Vancomycin Trough Rheumatoid Factor Complement C4 Miscellaneous Test Crossmatch 12/10/16 12/10/16 12/10/16 05:00 05:00 06:54 WBC 15.7 H RBC 2.87 L Hgb 8.2 L Hct 24.4 L MCV MCH MCHC RDW 17.2 H Plt Count Lymph % (Auto) [place] % (Auto) 8.3 H Lymph # [place] # 1.3 H Baso # Seg Neutrophils % 72.8 H Seg Neuts % (Manual) Lymphocytes % (Manual) Monocytes % (Manual) Eosinophils % (Manual) Basophils % (Manual) Nucleated RBC % Seg Neutrophils # 11.4 H Seg Neutrophils # Man Lymphocytes # (Manual) Monocytes # (Manual) Eosinophils # (Manual) Basophils # (Manual) PT INR Fibrinogen dRVVT Confirm Interp Factor V Activity POC ABG pH POC ABG pCO2 POC ABG pO2 ABG pO2 ABG HCO3 ABG Base Excess ABG Hemoglobin Oxyhemoglobin Sodium Potassium Chloride Carbon Dioxide BUN 64 H Creatinine 1.4 H Glucose 134 H POC Glucose 154 H Lactic Acid Calcium Phosphorus Magnesium Direct Bilirubin AST ALT Alkaline Phosphatase Lactate Dehydrogenase Troponin T C-Reactive Protein Total Protein Albumin Prealbumin Triglycerides Cholesterol LDL Cholesterol Direct HDL Cholesterol Urine pH Urine WBC (Auto) Urine Creatinine Urine Total Protein Fluid Total Protein Vancomycin Trough Rheumatoid Factor Complement C4 Miscellaneous Test Crossmatch 12/10/16 12/10/16 12/10/16 11:58 17:29 23:52 WBC RBC Hgb Hct MCV MCH MCHC RDW Plt Count Lymph % (Auto) [place] % (Auto) Lymph # [place] # Baso # Seg Neutrophils % Seg Neuts % (Manual) Lymphocytes % (Manual) Monocytes % (Manual) Eosinophils % (Manual) Basophils % (Manual) Nucleated RBC % Seg Neutrophils # Seg Neutrophils # Man Lymphocytes # (Manual) Monocytes # (Manual) Eosinophils # (Manual) Basophils # (Manual) PT INR Fibrinogen dRVVT Confirm Interp Factor V Activity POC ABG pH POC ABG pCO2 POC ABG pO2 ABG pO2 ABG HCO3 ABG Base Excess ABG Hemoglobin Oxyhemoglobin Sodium Potassium Chloride Carbon Dioxide BUN Creatinine Glucose POC Glucose 144 H 163 H 125 H Lactic Acid Calcium Phosphorus Magnesium Direct Bilirubin AST ALT Alkaline Phosphatase Lactate Dehydrogenase Troponin T C-Reactive Protein Total Protein Albumin Prealbumin Triglycerides Cholesterol LDL Cholesterol Direct HDL Cholesterol Urine pH Urine WBC (Auto) Urine Creatinine Urine Total Protein Fluid Total Protein Vancomycin Trough Rheumatoid Factor Complement C4 Miscellaneous Test Crossmatch 12/11/16 12/11/16 12/11/16 05:38 06:30 06:30 WBC 14.4 H RBC 2.76 L Hgb 7.7 L Hct 23.4 L MCV MCH MCHC RDW 17.2 H Plt Count Lymph % (Auto) [place] % (Auto) 8.8 H Lymph # [place] # 1.3 H Baso # Seg Neutrophils % 72.5 H Seg Neuts % (Manual) Lymphocytes % (Manual) Monocytes % (Manual) Eosinophils % (Manual) Basophils % (Manual) Nucleated RBC % Seg Neutrophils # 10.5 H Seg Neutrophils # Man Lymphocytes # (Manual) Monocytes # (Manual) Eosinophils # (Manual) Basophils # (Manual) PT INR Fibrinogen dRVVT Confirm Interp Factor V Activity POC ABG pH POC ABG pCO2 POC ABG pO2 ABG pO2 ABG HCO3 ABG Base Excess ABG Hemoglobin Oxyhemoglobin Sodium Potassium Chloride Carbon Dioxide BUN 43 H Creatinine Glucose 124 H POC Glucose 141 H Lactic Acid Calcium 8.3 L Phosphorus Magnesium 1.60 L Direct Bilirubin AST ALT Alkaline Phosphatase Lactate Dehydrogenase Troponin T C-Reactive Protein Total Protein Albumin Prealbumin Triglycerides Cholesterol LDL Cholesterol Direct HDL Cholesterol Urine pH Urine WBC (Auto) Urine Creatinine Urine Total Protein Fluid Total Protein Vancomycin Trough Rheumatoid Factor Complement C4 Miscellaneous Test Crossmatch 12/11/16 12/11/16 12/11/16 11:15 17:59 23:48 WBC RBC Hgb Hct MCV MCH MCHC RDW Plt Count Lymph % (Auto) [place] % (Auto) Lymph # [place] # Baso # Seg Neutrophils % Seg Neuts % (Manual) Lymphocytes % (Manual) Monocytes % (Manual) Eosinophils % (Manual) Basophils % (Manual) Nucleated RBC % Seg Neutrophils # Seg Neutrophils # Man Lymphocytes # (Manual) Monocytes # (Manual) Eosinophils # (Manual) Basophils # (Manual) PT INR Fibrinogen dRVVT Confirm Interp Factor V Activity POC ABG pH POC ABG pCO2 POC ABG pO2 ABG pO2 ABG HCO3 ABG Base Excess ABG Hemoglobin Oxyhemoglobin Sodium Potassium Chloride Carbon Dioxide BUN Creatinine Glucose POC Glucose 188 H 106 H 119 H Lactic Acid Calcium Phosphorus Magnesium Direct Bilirubin AST ALT Alkaline Phosphatase Lactate Dehydrogenase Troponin T C-Reactive Protein Total Protein Albumin Prealbumin Triglycerides Cholesterol LDL Cholesterol Direct HDL Cholesterol Urine pH Urine WBC (Auto) Urine Creatinine Urine Total Protein Fluid Total Protein Vancomycin Trough Rheumatoid Factor Complement C4 Miscellaneous Test Crossmatch 12/12/16 12/12/16 12/12/16 05:00 06:01 12:20 WBC 16.7 H RBC 2.87 L Hgb 8.0 L Hct 24.2 L MCV MCH MCHC RDW 17.6 H Plt Count Lymph % (Auto) [place] % (Auto) Lymph # [place] # 1.2 H Baso # Seg Neutrophils % 75.3 H Seg Neuts % (Manual) Lymphocytes % (Manual) Monocytes % (Manual) Eosinophils % (Manual) Basophils % (Manual) Nucleated RBC % Seg Neutrophils # 12.6 H Seg Neutrophils # Man Lymphocytes # (Manual) Monocytes # (Manual) Eosinophils # (Manual) Basophils # (Manual) PT INR Fibrinogen dRVVT Confirm Interp Factor V Activity POC ABG pH POC ABG pCO2 POC ABG pO2 ABG pO2 ABG HCO3 ABG Base Excess ABG Hemoglobin Oxyhemoglobin Sodium Potassium Chloride Carbon Dioxide BUN Creatinine Glucose POC Glucose 134 H 149 H Lactic Acid Calcium Phosphorus Magnesium Direct Bilirubin AST ALT Alkaline Phosphatase Lactate Dehydrogenase Troponin T C-Reactive Protein Total Protein Albumin Prealbumin Triglycerides Cholesterol LDL Cholesterol Direct HDL Cholesterol Urine pH Urine WBC (Auto) Urine Creatinine Urine Total Protein Fluid Total Protein Vancomycin Trough Rheumatoid Factor Complement C4 Miscellaneous Test Crossmatch 12/12/16 12/12/16 12/12/16 17:38 23:01 Unknown WBC RBC Hgb Hct MCV MCH MCHC RDW Plt Count Lymph % (Auto) [place] % (Auto) Lymph # [place] # Baso # Seg Neutrophils % Seg Neuts % (Manual) Lymphocytes % (Manual) Monocytes % (Manual) Eosinophils % (Manual) Basophils % (Manual) Nucleated RBC % Seg Neutrophils # Seg Neutrophils # Man Lymphocytes # (Manual) Monocytes # (Manual) Eosinophils # (Manual) Basophils # (Manual) PT INR Fibrinogen dRVVT Confirm Interp Factor V Activity POC ABG pH POC ABG pCO2 POC ABG pO2 ABG pO2 ABG HCO3 ABG Base Excess ABG Hemoglobin Oxyhemoglobin Sodium Potassium Chloride Carbon Dioxide BUN 60 H Creatinine 1.3 H Glucose 126 H POC Glucose 127 H 144 H Lactic Acid Calcium Phosphorus Magnesium Direct Bilirubin AST ALT Alkaline Phosphatase Lactate Dehydrogenase Troponin T C-Reactive Protein Total Protein Albumin Prealbumin Triglycerides Cholesterol LDL Cholesterol Direct HDL Cholesterol Urine pH Urine WBC (Auto) Urine Creatinine Urine Total Protein Fluid Total Protein Vancomycin Trough Rheumatoid Factor Complement C4 Miscellaneous Test Crossmatch 12/13/16 12/13/16 12/13/16 04:00 04:00 05:19 WBC 18.7 H RBC 2.89 L Hgb 8.3 L Hct 24.6 L MCV MCH MCHC RDW 17.5 H Plt Count Lymph % (Auto) [place] % (Auto) Lymph # [place] # 1.3 H Baso # Seg Neutrophils % 71.5 H Seg Neuts % (Manual) Lymphocytes % (Manual) Monocytes % (Manual) Eosinophils % (Manual) Basophils % (Manual) Nucleated RBC % Seg Neutrophils # 13.4 H Seg Neutrophils # Man Lymphocytes # (Manual) Monocytes # (Manual) Eosinophils # (Manual) Basophils # (Manual) PT INR Fibrinogen dRVVT Confirm Interp Factor V Activity POC ABG pH POC ABG pCO2 POC ABG pO2 ABG pO2 ABG HCO3 ABG Base Excess ABG Hemoglobin Oxyhemoglobin Sodium Potassium Chloride Carbon Dioxide BUN 73 H Creatinine 1.5 H Glucose 141 H POC Glucose 171 H Lactic Acid Calcium Phosphorus Magnesium Direct Bilirubin AST ALT Alkaline Phosphatase Lactate Dehydrogenase Troponin T C-Reactive Protein Total Protein Albumin Prealbumin Triglycerides Cholesterol LDL Cholesterol Direct HDL Cholesterol Urine pH Urine WBC (Auto) Urine Creatinine Urine Total Protein Fluid Total Protein Vancomycin Trough Rheumatoid Factor Complement C4 Miscellaneous Test Crossmatch 12/13/16 12/13/16 12/14/16 12:28 16:48 00:01 WBC RBC Hgb Hct MCV MCH MCHC RDW Plt Count Lymph % (Auto) [place] % (Auto) Lymph # [place] # Baso # Seg Neutrophils % Seg Neuts % (Manual) Lymphocytes % (Manual) Monocytes % (Manual) Eosinophils % (Manual) Basophils % (Manual) Nucleated RBC % Seg Neutrophils # Seg Neutrophils # Man Lymphocytes # (Manual) Monocytes # (Manual) Eosinophils # (Manual) Basophils # (Manual) PT INR Fibrinogen dRVVT Confirm Interp Factor V Activity POC ABG pH POC ABG pCO2 POC ABG pO2 ABG pO2 ABG HCO3 ABG Base Excess ABG Hemoglobin Oxyhemoglobin Sodium Potassium Chloride Carbon Dioxide BUN Creatinine Glucose POC Glucose 206 H 173 H 139 H Lactic Acid Calcium Phosphorus Magnesium Direct Bilirubin AST ALT Alkaline Phosphatase Lactate Dehydrogenase Troponin T C-Reactive Protein Total Protein Albumin Prealbumin Triglycerides Cholesterol LDL Cholesterol Direct HDL Cholesterol Urine pH Urine WBC (Auto) Urine Creatinine Urine Total Protein Fluid Total Protein Vancomycin Trough Rheumatoid Factor Complement C4 Miscellaneous Test Crossmatch 12/14/16 12/14/16 12/14/16 05:16 06:10 11:17 WBC RBC Hgb Hct MCV MCH MCHC RDW Plt Count Lymph % (Auto) [place] % (Auto) Lymph # [place] # Baso # Seg Neutrophils % Seg Neuts % (Manual) Lymphocytes % (Manual) Monocytes % (Manual) Eosinophils % (Manual) Basophils % (Manual) Nucleated RBC % Seg Neutrophils # Seg Neutrophils # Man Lymphocytes # (Manual) Monocytes # (Manual) Eosinophils # (Manual) Basophils # (Manual) PT INR Fibrinogen dRVVT Confirm Interp Factor V Activity POC ABG pH POC ABG pCO2 POC ABG pO2 ABG pO2 ABG HCO3 ABG Base Excess ABG Hemoglobin Oxyhemoglobin Sodium Potassium Chloride Carbon Dioxide BUN 57 H Creatinine 1.4 H Glucose 135 H POC Glucose 158 H 137 H Lactic Acid Calcium Phosphorus Magnesium Direct Bilirubin AST ALT Alkaline Phosphatase Lactate Dehydrogenase Troponin T C-Reactive Protein Total Protein Albumin Prealbumin Triglycerides Cholesterol LDL Cholesterol Direct HDL Cholesterol Urine pH Urine WBC (Auto) Urine Creatinine Urine Total Protein Fluid Total Protein Vancomycin Trough Rheumatoid Factor Complement C4 Miscellaneous Test Crossmatch 12/14/16 12/14/16 12/15/16 17:52 23:27 04:00 WBC RBC Hgb Hct MCV MCH MCHC RDW Plt Count Lymph % (Auto) [place] % (Auto) Lymph # [place] # Baso # Seg Neutrophils % Seg Neuts % (Manual) Lymphocytes % (Manual) Monocytes % (Manual) Eosinophils % (Manual) Basophils % (Manual) Nucleated RBC % Seg Neutrophils # Seg Neutrophils # Man Lymphocytes # (Manual) Monocytes # (Manual) Eosinophils # (Manual) Basophils # (Manual) PT INR Fibrinogen dRVVT Confirm Interp Factor V Activity POC ABG pH POC ABG pCO2 POC ABG pO2 ABG pO2 ABG HCO3 ABG Base Excess ABG Hemoglobin Oxyhemoglobin Sodium Potassium Chloride 97.9 L Carbon Dioxide BUN 75 H Creatinine 1.6 H Glucose 122 H POC Glucose 149 H 163 H Lactic Acid Calcium Phosphorus 5.20 H Magnesium Direct Bilirubin AST ALT Alkaline Phosphatase Lactate Dehydrogenase Troponin T C-Reactive Protein Total Protein Albumin Prealbumin Triglycerides Cholesterol LDL Cholesterol Direct HDL Cholesterol Urine pH Urine WBC (Auto) Urine Creatinine Urine Total Protein Fluid Total Protein Vancomycin Trough Rheumatoid Factor Complement C4 Miscellaneous Test Crossmatch 12/15/16 12/15/16 12/15/16 05:50 11:24 17:01 WBC RBC Hgb Hct MCV MCH MCHC RDW Plt Count Lymph % (Auto) [place] % (Auto) Lymph # [place] # Baso # Seg Neutrophils % Seg Neuts % (Manual) Lymphocytes % (Manual) Monocytes % (Manual) Eosinophils % (Manual) Basophils % (Manual) Nucleated RBC % Seg Neutrophils # Seg Neutrophils # Man Lymphocytes # (Manual) Monocytes # (Manual) Eosinophils # (Manual) Basophils # (Manual) PT INR Fibrinogen dRVVT Confirm Interp Factor V Activity POC ABG pH POC ABG pCO2 POC ABG pO2 ABG pO2 ABG HCO3 ABG Base Excess ABG Hemoglobin Oxyhemoglobin Sodium Potassium Chloride Carbon Dioxide BUN Creatinine Glucose POC Glucose 150 H 146 H 167 H Lactic Acid Calcium Phosphorus Magnesium Direct Bilirubin AST ALT Alkaline Phosphatase Lactate Dehydrogenase Troponin T C-Reactive Protein Total Protein Albumin Prealbumin Triglycerides Cholesterol LDL Cholesterol Direct HDL Cholesterol Urine pH Urine WBC (Auto) Urine Creatinine Urine Total Protein Fluid Total Protein Vancomycin Trough Rheumatoid Factor Complement C4 Miscellaneous Test Crossmatch 12/15/16 12/16/16 12/16/16 23:34 05:25 11:24 WBC RBC Hgb Hct MCV MCH MCHC RDW Plt Count Lymph % (Auto) [place] % (Auto) Lymph # [place] # Baso # Seg Neutrophils % Seg Neuts % (Manual) Lymphocytes % (Manual) Monocytes % (Manual) Eosinophils % (Manual) Basophils % (Manual) Nucleated RBC % Seg Neutrophils # Seg Neutrophils # Man Lymphocytes # (Manual) Monocytes # (Manual) Eosinophils # (Manual) Basophils # (Manual) PT INR Fibrinogen dRVVT Confirm Interp Factor V Activity POC ABG pH POC ABG pCO2 POC ABG pO2 ABG pO2 ABG HCO3 ABG Base Excess ABG Hemoglobin Oxyhemoglobin Sodium Potassium Chloride Carbon Dioxide BUN Creatinine Glucose POC Glucose 127 H 139 H 165 H Lactic Acid Calcium Phosphorus Magnesium Direct Bilirubin AST ALT Alkaline Phosphatase Lactate Dehydrogenase Troponin T C-Reactive Protein Total Protein Albumin Prealbumin Triglycerides Cholesterol LDL Cholesterol Direct HDL Cholesterol Urine pH Urine WBC (Auto) Urine Creatinine Urine Total Protein Fluid Total Protein Vancomycin Trough Rheumatoid Factor Complement C4 Miscellaneous Test Crossmatch 12/16/16 12/16/16 12/16/16 15:30 16:25 17:31 WBC 17.8 H RBC 2.38 L Hgb 6.4 L Hct 20.3 L MCV MCH 27 L MCHC RDW 17.4 H Plt Count Lymph % (Auto) [place] % (Auto) Lymph # [place] # Baso # Seg Neutrophils % Seg Neuts % (Manual) Lymphocytes % (Manual) Monocytes % (Manual) 10.0 H Eosinophils % (Manual) Basophils % (Manual) Nucleated RBC % Seg Neutrophils # Seg Neutrophils # Man 8.5 H Lymphocytes # (Manual) Monocytes # (Manual) 1.8 H Eosinophils # (Manual) Basophils # (Manual) PT INR Fibrinogen dRVVT Confirm Interp Factor V Activity POC ABG pH POC ABG pCO2 POC ABG pO2 ABG pO2 ABG HCO3 ABG Base Excess ABG Hemoglobin Oxyhemoglobin Sodium Potassium Chloride Carbon Dioxide BUN Creatinine Glucose POC Glucose 176 H Lactic Acid Calcium Phosphorus Magnesium Direct Bilirubin AST ALT Alkaline Phosphatase Lactate Dehydrogenase Troponin T C-Reactive Protein Total Protein Albumin Prealbumin Triglycerides Cholesterol LDL Cholesterol Direct HDL Cholesterol Urine pH Urine WBC (Auto) Urine Creatinine Urine Total Protein Fluid Total Protein Vancomycin Trough Rheumatoid Factor Complement C4 Miscellaneous Test Crossmatch See Detail 12/17/16 12/17/16 12/17/16 00:14 04:00 05:00 WBC 20.0 H RBC 2.99 L Hgb 8.5 L Hct 25.7 L MCV MCH MCHC RDW 17.2 H Plt Count Lymph % (Auto) [place] % (Auto) Lymph # [place] # Baso # Seg Neutrophils % Seg Neuts % (Manual) Lymphocytes % (Manual) Monocytes % (Manual) Eosinophils % (Manual) Basophils % (Manual) Nucleated RBC % Seg Neutrophils # Seg Neutrophils # Man Lymphocytes # (Manual) Monocytes # (Manual) Eosinophils # (Manual) Basophils # (Manual) PT INR Fibrinogen dRVVT Confirm Interp Factor V Activity POC ABG pH POC ABG pCO2 POC ABG pO2 ABG pO2 ABG HCO3 ABG Base Excess ABG Hemoglobin Oxyhemoglobin Sodium Potassium Chloride 97.7 L Carbon Dioxide BUN 73 H Creatinine 1.7 H Glucose 136 H POC Glucose 148 H Lactic Acid Calcium Phosphorus 2.20 L Magnesium 2.70 H Direct Bilirubin AST ALT Alkaline Phosphatase Lactate Dehydrogenase Troponin T C-Reactive Protein Total Protein Albumin Prealbumin Triglycerides Cholesterol LDL Cholesterol Direct HDL Cholesterol Urine pH Urine WBC (Auto) Urine Creatinine Urine Total Protein Fluid Total Protein Vancomycin Trough Rheumatoid Factor Complement C4 Miscellaneous Test Crossmatch 12/17/16 12/17/16 12/17/16 05:39 12:50 16:32 WBC RBC Hgb Hct MCV MCH MCHC RDW Plt Count Lymph % (Auto) [place] % (Auto) Lymph # [place] # Baso # Seg Neutrophils % Seg Neuts % (Manual) Lymphocytes % (Manual) Monocytes % (Manual) Eosinophils % (Manual) Basophils % (Manual) Nucleated RBC % Seg Neutrophils # Seg Neutrophils # Man Lymphocytes # (Manual) Monocytes # (Manual) Eosinophils # (Manual) Basophils # (Manual) PT INR Fibrinogen dRVVT Confirm Interp Factor V Activity POC ABG pH POC ABG pCO2 POC ABG pO2 ABG pO2 ABG HCO3 ABG Base Excess ABG Hemoglobin Oxyhemoglobin Sodium Potassium Chloride Carbon Dioxide BUN Creatinine Glucose POC Glucose 162 H 146 H 169 H Lactic Acid Calcium Phosphorus Magnesium Direct Bilirubin AST ALT Alkaline Phosphatase Lactate Dehydrogenase Troponin T C-Reactive Protein Total Protein Albumin Prealbumin Triglycerides Cholesterol LDL Cholesterol Direct HDL Cholesterol Urine pH Urine WBC (Auto) Urine Creatinine Urine Total Protein Fluid Total Protein Vancomycin Trough Rheumatoid Factor Complement C4 Miscellaneous Test Crossmatch 12/17/16 12/18/16 12/18/16 23:57 05:00 05:32 WBC RBC Hgb Hct MCV MCH MCHC RDW Plt Count Lymph % (Auto) [place] % (Auto) Lymph # [place] # Baso # Seg Neutrophils % Seg Neuts % (Manual) Lymphocytes % (Manual) Monocytes % (Manual) Eosinophils % (Manual) Basophils % (Manual) Nucleated RBC % Seg Neutrophils # Seg Neutrophils # Man Lymphocytes # (Manual) Monocytes # (Manual) Eosinophils # (Manual) Basophils # (Manual) PT INR Fibrinogen dRVVT Confirm Interp Factor V Activity POC ABG pH POC ABG pCO2 POC ABG pO2 ABG pO2 ABG HCO3 ABG Base Excess ABG Hemoglobin Oxyhemoglobin Sodium Potassium Chloride 97.0 L Carbon Dioxide BUN 63 H Creatinine 1.4 H Glucose 174 H POC Glucose 145 H 201 H Lactic Acid Calcium Phosphorus 1.70 L D Magnesium Direct Bilirubin AST ALT Alkaline Phosphatase 257 H Lactate Dehydrogenase Troponin T C-Reactive Protein Total Protein 5.9 L Albumin 1.8 L Prealbumin Triglycerides Cholesterol LDL Cholesterol Direct HDL Cholesterol Urine pH Urine WBC (Auto) Urine Creatinine Urine Total Protein Fluid Total Protein Vancomycin Trough Rheumatoid Factor Complement C4 Miscellaneous Test Crossmatch 12/18/16 12/18/16 12/18/16 11:43 16:52 23:52 WBC RBC Hgb Hct MCV MCH MCHC RDW Plt Count Lymph % (Auto) [place] % (Auto) Lymph # [place] # Baso # Seg Neutrophils % Seg Neuts % (Manual) Lymphocytes % (Manual) Monocytes % (Manual) Eosinophils % (Manual) Basophils % (Manual) Nucleated RBC % Seg Neutrophils # Seg Neutrophils # Man Lymphocytes # (Manual) Monocytes # (Manual) Eosinophils # (Manual) Basophils # (Manual) PT INR Fibrinogen dRVVT Confirm Interp Factor V Activity POC ABG pH POC ABG pCO2 POC ABG pO2 ABG pO2 ABG HCO3 ABG Base Excess ABG Hemoglobin Oxyhemoglobin Sodium Potassium Chloride Carbon Dioxide BUN Creatinine Glucose POC Glucose 177 H 110 H 162 H Lactic Acid Calcium Phosphorus Magnesium Direct Bilirubin AST ALT Alkaline Phosphatase Lactate Dehydrogenase Troponin T C-Reactive Protein Total Protein Albumin Prealbumin Triglycerides Cholesterol LDL Cholesterol Direct HDL Cholesterol Urine pH Urine WBC (Auto) Urine Creatinine Urine Total Protein Fluid Total Protein Vancomycin Trough Rheumatoid Factor Complement C4 Miscellaneous Test Crossmatch 12/19/16 12/19/16 12/19/16 05:02 05:24 09:30 WBC 20.1 H RBC 2.73 L Hgb 7.6 L Hct 23.6 L MCV MCH MCHC RDW 17.6 H Plt Count Lymph % (Auto) [place] % (Auto) Lymph # [place] # Baso # Seg Neutrophils % Seg Neuts % (Manual) Lymphocytes % (Manual) 13.0 L Monocytes % (Manual) Eosinophils % (Manual) Basophils % (Manual) Nucleated RBC % 1.0 H Seg Neutrophils # Seg Neutrophils # Man 12.9 H Lymphocytes # (Manual) Monocytes # (Manual) 1.4 H Eosinophils # (Manual) Basophils # (Manual) 0.2 H PT INR Fibrinogen dRVVT Confirm Interp Factor V Activity POC ABG pH POC ABG pCO2 POC ABG pO2 ABG pO2 ABG HCO3 ABG Base Excess ABG Hemoglobin Oxyhemoglobin Sodium Potassium Chloride 97.8 L Carbon Dioxide BUN 84 H Creatinine 1.6 H Glucose 133 H POC Glucose 134 H Lactic Acid Calcium Phosphorus Magnesium Direct Bilirubin AST ALT Alkaline Phosphatase Lactate Dehydrogenase Troponin T C-Reactive Protein Total Protein Albumin Prealbumin Triglycerides Cholesterol LDL Cholesterol Direct HDL Cholesterol Urine pH Urine WBC (Auto) Urine Creatinine Urine Total Protein Fluid Total Protein Vancomycin Trough Rheumatoid Factor Complement C4 Miscellaneous Test Crossmatch 12/19/16 12/19/16 12/19/16 09:36 11:12 18:29 WBC RBC Hgb Hct MCV MCH MCHC RDW Plt Count Lymph % (Auto) [place] % (Auto) Lymph # [place] # Baso # Seg Neutrophils % Seg Neuts % (Manual) Lymphocytes % (Manual) Monocytes % (Manual) Eosinophils % (Manual) Basophils % (Manual) Nucleated RBC % Seg Neutrophils # Seg Neutrophils # Man Lymphocytes # (Manual) Monocytes # (Manual) Eosinophils # (Manual) Basophils # (Manual) PT INR Fibrinogen dRVVT Confirm Interp Factor V Activity POC ABG pH 7.503 H POC ABG pCO2 30.1 L POC ABG pO2 ABG pO2 ABG HCO3 ABG Base Excess ABG Hemoglobin Oxyhemoglobin Sodium Potassium Chloride Carbon Dioxide BUN Creatinine Glucose POC Glucose 138 H 156 H Lactic Acid Calcium Phosphorus Magnesium Direct Bilirubin AST ALT Alkaline Phosphatase Lactate Dehydrogenase Troponin T C-Reactive Protein Total Protein Albumin Prealbumin Triglycerides Cholesterol LDL Cholesterol Direct HDL Cholesterol Urine pH Urine WBC (Auto) Urine Creatinine Urine Total Protein Fluid Total Protein Vancomycin Trough Rheumatoid Factor Complement C4 Miscellaneous Test Crossmatch 12/20/16 12/20/16 12/20/16 00:03 06:17 07:07 WBC RBC Hgb Hct MCV MCH MCHC RDW Plt Count Lymph % (Auto) [place] % (Auto) Lymph # [place] # Baso # Seg Neutrophils % Seg Neuts % (Manual) Lymphocytes % (Manual) Monocytes % (Manual) Eosinophils % (Manual) Basophils % (Manual) Nucleated RBC % Seg Neutrophils # Seg Neutrophils # Man Lymphocytes # (Manual) Monocytes # (Manual) Eosinophils # (Manual) Basophils # (Manual) PT INR Fibrinogen dRVVT Confirm Interp Factor V Activity POC ABG pH POC ABG pCO2 POC ABG pO2 ABG pO2 ABG HCO3 ABG Base Excess ABG Hemoglobin Oxyhemoglobin Sodium Potassium Chloride 97.1 L Carbon Dioxide 20 L BUN 97 H Creatinine 1.8 H Glucose 153 H POC Glucose 152 H 175 H Lactic Acid Calcium Phosphorus Magnesium Direct Bilirubin AST ALT Alkaline Phosphatase Lactate Dehydrogenase Troponin T C-Reactive Protein Total Protein Albumin Prealbumin Triglycerides Cholesterol LDL Cholesterol Direct HDL Cholesterol Urine pH Urine WBC (Auto) Urine Creatinine Urine Total Protein Fluid Total Protein Vancomycin Trough Rheumatoid Factor Complement C4 Miscellaneous Test Crossmatch 12/20/16 12/20/16 12/20/16 12:00 17:42 23:53 WBC RBC Hgb Hct MCV MCH MCHC RDW Plt Count Lymph % (Auto) [place] % (Auto) Lymph # [place] # Baso # Seg Neutrophils % Seg Neuts % (Manual) Lymphocytes % (Manual) Monocytes % (Manual) Eosinophils % (Manual) Basophils % (Manual) Nucleated RBC % Seg Neutrophils # Seg Neutrophils # Man Lymphocytes # (Manual) Monocytes # (Manual) Eosinophils # (Manual) Basophils # (Manual) PT INR Fibrinogen dRVVT Confirm Interp Factor V Activity POC ABG pH POC ABG pCO2 POC ABG pO2 ABG pO2 ABG HCO3 ABG Base Excess ABG Hemoglobin Oxyhemoglobin Sodium Potassium Chloride Carbon Dioxide BUN Creatinine Glucose POC Glucose 141 H 156 H 132 H Lactic Acid Calcium Phosphorus Magnesium Direct Bilirubin AST ALT Alkaline Phosphatase Lactate Dehydrogenase Troponin T C-Reactive Protein Total Protein Albumin Prealbumin Triglycerides Cholesterol LDL Cholesterol Direct HDL Cholesterol Urine pH Urine WBC (Auto) Urine Creatinine Urine Total Protein Fluid Total Protein Vancomycin Trough Rheumatoid Factor Complement C4 Miscellaneous Test Crossmatch 12/21/16 12/21/16 12/21/16 05:49 08:50 12:19 WBC RBC Hgb Hct MCV MCH MCHC RDW Plt Count Lymph % (Auto) [place] % (Auto) Lymph # [place] # Baso # Seg Neutrophils % Seg Neuts % (Manual) Lymphocytes % (Manual) Monocytes % (Manual) Eosinophils % (Manual) Basophils % (Manual) Nucleated RBC % Seg Neutrophils # Seg Neutrophils # Man Lymphocytes # (Manual) Monocytes # (Manual) Eosinophils # (Manual) Basophils # (Manual) PT INR Fibrinogen dRVVT Confirm Interp Factor V Activity POC ABG pH POC ABG pCO2 POC ABG pO2 ABG pO2 ABG HCO3 ABG Base Excess ABG Hemoglobin Oxyhemoglobin Sodium Potassium 5.2 H D Chloride Carbon Dioxide BUN 63 H Creatinine Glucose 122 H POC Glucose 132 H 136 H Lactic Acid Calcium 8.3 L Phosphorus Magnesium Direct Bilirubin AST ALT Alkaline Phosphatase Lactate Dehydrogenase Troponin T C-Reactive Protein Total Protein Albumin Prealbumin Triglycerides Cholesterol LDL Cholesterol Direct HDL Cholesterol Urine pH Urine WBC (Auto) Urine Creatinine Urine Total Protein Fluid Total Protein Vancomycin Trough Rheumatoid Factor Complement C4 Miscellaneous Test Crossmatch 12/21/16 12/21/16 12/22/16 17:22 23:58 05:49 WBC RBC Hgb Hct MCV MCH MCHC RDW Plt Count Lymph % (Auto) [place] % (Auto) Lymph # [place] # Baso # Seg Neutrophils % Seg Neuts % (Manual) Lymphocytes % (Manual) Monocytes % (Manual) Eosinophils % (Manual) Basophils % (Manual) Nucleated RBC % Seg Neutrophils # Seg Neutrophils # Man Lymphocytes # (Manual) Monocytes # (Manual) Eosinophils # (Manual) Basophils # (Manual) PT INR Fibrinogen dRVVT Confirm Interp Factor V Activity POC ABG pH POC ABG pCO2 POC ABG pO2 ABG pO2 ABG HCO3 ABG Base Excess ABG Hemoglobin Oxyhemoglobin Sodium Potassium Chloride Carbon Dioxide BUN Creatinine Glucose POC Glucose 135 H 149 H 140 H Lactic Acid Calcium Phosphorus Magnesium Direct Bilirubin AST ALT Alkaline Phosphatase Lactate Dehydrogenase Troponin T C-Reactive Protein Total Protein Albumin Prealbumin Triglycerides Cholesterol LDL Cholesterol Direct HDL Cholesterol Urine pH Urine WBC (Auto) Urine Creatinine Urine Total Protein Fluid Total Protein Vancomycin Trough Rheumatoid Factor Complement C4 Miscellaneous Test Crossmatch 12/22/16 06:10 WBC RBC Hgb Hct MCV MCH MCHC RDW Plt Count Lymph % (Auto) [place] % (Auto) Lymph # [place] # Baso # Seg Neutrophils % Seg Neuts % (Manual) Lymphocytes % (Manual) Monocytes % (Manual) Eosinophils % (Manual) Basophils % (Manual) Nucleated RBC % Seg Neutrophils # Seg Neutrophils # Man Lymphocytes # (Manual) Monocytes # (Manual) Eosinophils # (Manual) Basophils # (Manual) PT INR Fibrinogen dRVVT Confirm Interp Factor V Activity POC ABG pH POC ABG pCO2 POC ABG pO2 ABG pO2 ABG HCO3 ABG Base Excess ABG Hemoglobin Oxyhemoglobin Sodium Potassium Chloride Carbon Dioxide BUN 76 H Creatinine 1.5 H Glucose 241 H POC Glucose Lactic Acid Calcium Phosphorus Magnesium Direct Bilirubin AST ALT Alkaline Phosphatase Lactate Dehydrogenase Troponin T C-Reactive Protein Total Protein Albumin Prealbumin Triglycerides Cholesterol LDL Cholesterol Direct HDL Cholesterol Urine pH Urine WBC (Auto) Urine Creatinine Urine Total Protein Fluid Total Protein Vancomycin Trough Rheumatoid Factor Complement C4 Miscellaneous Test Crossmatch Allied health notes reviewed: RT
[2016-12-22] MEDS: NORVASC PO SCH (09:54)
[2016-12-22] MEDS: CORDARONE PO SCH ×2 (09:55→22:00)
[2016-12-22] MEDS: PROCRIT IV PRN (11:56)
[2016-12-22] MEDS: HEPARIN IV PRN (13:59)
--- NOTE | 2016-12-22 14:30 | Progress Note ---
Assessment and Plan Acute hypoxic respiratory failure on mechanical ventilation s/p trach and PEG Acute left MCA CVA echocardiogram demonstrates at least moderate LVH but a normal LV systolic function, EF 50-55%. no thrombus visualized on transthoracic echocardiogram. Dislodged PEG tube s/p repair of gastric perforation with wedge gastrectomy Hypotensive now off pressors Acute on chronic renal failure requiring dialysis Fungemia Diabetes mellitus Anemia requiring transfusion of PRBCs Leukocytosis Paroxysmal Afib s/p failed cardioversion on 09/25 on lopressor and oral amiodarone for suppression considered not a candidate for anticoagulation due to severe anemia and thrombocytopenia. Conservative cardiac management. Subjective Date of service: 12/22/16 Principal diagnosis: Acute resp failure on MVS; S/P Acute CVA; Acute Encephalopathy; JUANITA Interval history: No cardiac events reported overnight. Objective Vital Signs Temp Pulse Pulse Pulse Pulse Resp Resp 12/22/16 13:59 96 H 12/22/16 13:56 97.4 F L 96 H 18 12/22/16 13:45 94 H 16 12/22/16 13:36 92 H 12/22/16 13:30 93 H 37 H 12/22/16 13:18 93 H 12/22/16 13:15 92 H 24 12/22/16 13:01 93 H 12/22/16 13:00 93 H 39 H 12/22/16 12:46 95 H 12/22/16 12:45 95 H 33 H 12/22/16 12:30 94 H 38 H 12/22/16 12:15 94 H 37 H 12/22/16 12:00 93 H 37 H 12/22/16 11:45 95 H 38 H 12/22/16 11:40 97.4 F L 12/22/16 11:30 92 H 38 H 12/22/16 11:15 92 H 34 H 12/22/16 11:05 92 H 12/22/16 11:00 92 H 29 H 12/22/16 10:45 93 H 8 L 12/22/16 10:30 93 H 11 L 12/22/16 10:15 90 8 L 12/22/16 10:00 89 16 12/22/16 09:50 98.7 F 89 11 L 12/22/16 09:45 87 7 L 12/22/16 09:30 86 13 12/22/16 09:22 87 14 12/22/16 09:13 12/22/16 09:06 84 12/22/16 09:00 85 9 L 12/22/16 08:59 84 30 H 12/22/16 08:45 85 21 12/22/16 08:30 85 24 12/22/16 08:15 85 23 12/22/16 08:00 83 22 12/22/16 07:57 98.7 F 12/22/16 07:45 84 24 12/22/16 07:30 85 24 12/22/16 07:15 85 20 12/22/16 07:00 86 22 12/22/16 06:45 89 20 12/22/16 06:30 102 H 26 H 12/22/16 06:21 107 H 12/22/16 06:20 106 H 12/22/16 06:15 107 H 26 H 12/22/16 06:00 112 H 35 H 12/22/16 05:45 12/22/16 05:30 12/22/16 05:15 108 H 23 12/22/16 05:00 108 H 23 12/22/16 04:45 110 H 23 12/22/16 04:30 109 H 25 H 12/22/16 04:15 110 H 25 H 12/22/16 04:07 99 H 12/22/16 04:00 98.8 F 109 H 109 H 25 H 12/22/16 03:45 108 H 21 12/22/16 03:30 111 H 24 12/22/16 03:15 110 H 13 12/22/16 03:00 107 H 13 12/22/16 02:58 103 H 22 12/22/16 02:45 104 H 23 12/22/16 02:37 102 H 12/22/16 02:30 105 H 25 H 12/22/16 02:15 103 H 21 12/22/16 02:00 104 H 24 12/22/16 01:45 103 H 25 H 12/22/16 01:30 103 H 27 H 12/22/16 01:29 12/22/16 01:15 103 H 22 12/22/16 01:00 104 H 25 H 12/22/16 00:45 104 H 23 12/22/16 00:30 104 H 23 12/22/16 00:15 106 H 25 H 12/22/16 00:01 105 H 12/22/16 00:00 98.1 F 106 H 106 H 24 12/21/16 23:45 102 H 22 12/21/16 23:30 99 H 23 12/21/16 23:15 101 H 23 12/21/16 23:00 104 H 25 H 12/21/16 22:45 104 H 25 H 12/21/16 22:31 22 12/21/16 22:30 112 H 26 H 12/21/16 22:15 115 H 23 12/21/16 22:00 105 H 29 H 12/21/16 21:45 102 H 21 12/21/16 21:31 30 H 12/21/16 21:30 105 H 27 H 12/21/16 21:15 103 H 14 12/21/16 21:00 105 H 13 12/21/16 20:45 105 H 13 12/21/16 20:33 113 H 12/21/16 20:30 104 H 14 12/21/16 20:15 100 H 14 12/21/16 20:13 99 H 108 H 12/21/16 20:00 99 H 99 H 24 12/21/16 19:45 100 H 30 H 12/21/16 19:42 98.9 F 12/21/16 19:30 100 H 24 12/21/16 19:15 98 H 24 12/21/16 19:00 96 H 23 12/21/16 18:45 94 H 25 H 12/21/16 18:30 101 H 18 12/21/16 18:17 12/21/16 18:15 109 H 27 H 12/21/16 18:05 108 H 27 H 12/21/16 18:00 110 H 26 H 12/21/16 17:45 111 H 26 H 12/21/16 17:30 107 H 24 12/21/16 17:15 107 H 24 12/21/16 17:00 109 H 26 H 12/21/16 16:50 108 H 12/21/16 16:45 107 H 25 H 12/21/16 16:30 106 H 22 12/21/16 16:15 105 H 23 12/21/16 16:00 98.6 F 105 H 26 H 12/21/16 15:45 108 H 24 12/21/16 15:30 109 H 20 12/21/16 15:28 118 H 12/21/16 15:15 114 H 26 H 12/21/16 15:00 109 H 13 12/21/16 14:54 110 H 12/21/16 14:45 109 H 26 H 12/21/16 14:30 111 H 25 H Resp Resp BP Pulse Ox Pulse Ox Pulse Ox 12/22/16 13:59 96/63 12/22/16 13:56 96/63 96 12/22/16 13:45 96/63 97 12/22/16 13:36 92/54 98 12/22/16 13:30 92/54 98 12/22/16 13:18 95/62 12/22/16 13:15 95/62 98 12/22/16 13:01 88/56 12/22/16 13:00 88/56 97 12/22/16 12:46 96/68 12/22/16 12:45 96/68 98 12/22/16 12:30 98/60 98 12/22/16 12:15 95/63 98 12/22/16 12:00 94/60 98 12/22/16 11:45 96/61 97 12/22/16 11:40 12/22/16 11:30 91/59 97 12/22/16 11:15 95/60 97 12/22/16 11:05 97/62 12/22/16 11:00 97/62 98 12/22/16 10:45 97/60 98 12/22/16 10:30 105/66 98 12/22/16 10:15 106/67 98 12/22/16 10:00 119/75 98 12/22/16 09:50 119/75 98 12/22/16 09:45 112/71 97 12/22/16 09:30 106/65 96 12/22/16 09:22 96 12/22/16 09:13 99 12/22/16 09:06 128/90 90 12/22/16 09:00 128/90 100 12/22/16 08:59 128/90 100 12/22/16 08:45 133/90 97 12/22/16 08:30 126/89 98 12/22/16 08:15 126/83 97 12/22/16 08:00 121/81 97 12/22/16 07:57 12/22/16 07:45 124/81 97 12/22/16 07:30 129/87 97 12/22/16 07:15 122/91 97 12/22/16 07:00 131/86 97 12/22/16 06:45 130/92 97 12/22/16 06:30 142/93 88 12/22/16 06:21 149/94 12/22/16 06:20 149/94 12/22/16 06:15 149/94 97 12/22/16 06:00 167/109 97 12/22/16 05:45 131/77 98 12/22/16 05:30 149/91 99 12/22/16 05:15 131/77 97 12/22/16 05:00 125/83 97 12/22/16 04:45 126/76 97 12/22/16 04:30 130/82 97 12/22/16 04:15 128/79 97 12/22/16 04:07 112/65 100 12/22/16 04:00 119/75 97 12/22/16 03:45 120/76 97 12/22/16 03:30 126/73 97 12/22/16 03:15 116/75 97 12/22/16 03:00 126/79 98 12/22/16 02:58 12/22/16 02:45 115/71 98 12/22/16 02:37 12/22/16 02:30 122/70 98 12/22/16 02:15 104/62 98 12/22/16 02:00 118/74 98 12/22/16 01:45 114/72 98 12/22/16 01:30 118/71 98 12/22/16 01:29 99 12/22/16 01:15 115/73 98 12/22/16 01:00 116/69 98 12/22/16 00:45 111/70 98 12/22/16 00:30 112/70 98 12/22/16 00:15 122/67 97 12/22/16 00:01 111/58 12/22/16 00:00 116/65 96 12/21/16 23:45 111/58 97 12/21/16 23:30 102/53 98 12/21/16 23:15 96/54 97 12/21/16 23:00 111/62 98 12/21/16 22:45 103/58 97 12/21/16 22:31 12/21/16 22:30 120/74 96 12/21/16 22:15 124/81 96 12/21/16 22:00 124/81 94 12/21/16 21:45 118/75 98 12/21/16 21:31 98 12/21/16 21:30 30 H 131/79 97 12/21/16 21:15 129/79 93 12/21/16 21:00 132/83 97 12/21/16 20:45 128/77 96 12/21/16 20:33 21 12/21/16 20:30 141/79 96 12/21/16 20:15 151/100 97 12/21/16 20:13 22 128/82 100 12/21/16 20:00 128/82 95 12/21/16 19:45 131/82 95 12/21/16 19:42 12/21/16 19:30 136/85 95 12/21/16 19:15 134/82 96 12/21/16 19:00 128/79 96 12/21/16 18:45 125/81 96 12/21/16 18:30 135/95 99 12/21/16 18:17 153/94 12/21/16 18:15 153/104 97 12/21/16 18:05 160/103 97 12/21/16 18:00 98 12/21/16 17:45 150/92 85 12/21/16 17:30 156/100 97 12/21/16 17:15 159/100 96 12/21/16 17:00 153/92 85 12/21/16 16:50 150/92 97 97 12/21/16 16:45 147/99 96 12/21/16 16:30 158/95 95 12/21/16 16:15 146/98 96 12/21/16 16:00 144/95 95 12/21/16 15:45 139/88 95 12/21/16 15:30 131/84 94 12/21/16 15:28 22 12/21/16 15:15 157/98 98 12/21/16 15:00 148/91 95 12/21/16 14:54 24 12/21/16 14:45 141/96 96 12/21/16 14:30 152/98 98 - Physical Examination General: Other (ventilated via trach) Cardiac: Positive: Reg Rate and Rhythm - Labs and Meds Comprehensive Metabolic Panel 12/22/16 Range/Units 06:10 Sodium 142 (137-145) mmol/L Potassium 3.7 D (3.6-5.0) mmol/L Chloride 98.6 (98-107) mmol/L Carbon Dioxide 25 (22-30) mmol/L BUN 76 H (7-17) mg/dL Creatinine 1.5 H (0.7-1.2) mg/dL Glucose 241 H (65-100) mg/dL Calcium 8.7 (8.4-10.2) mg/dL - Imaging and Cardiology EKG: image reviewed - Allied health notes Allied health notes reviewed: RT
--- NOTE | 2016-12-22 18:20 | Progress Note ---
Assessment and Plan Assessment and plan: Patient is 46-year-old woman with a history of hypertension, diabetes mellitus, asthma, hyperlipidemia, chronic kidney disease and anxiety, who was brought in by family because she couldn't get her words out, her face was also twisted, she was admitted for acute CVA and accelerated hypertension, she had a hx of poor adherence with her medications, and uncontrolled htn. Patient's SBP on admission was noted be greater than 260. TPA was started but this it was discontinued after 5 minutes because her blood pressure became uncontrolled. The TPA was not initiated again because the patient was outside the TPA window. Patient has had a prolonged hospital stay complicated with recurrent severe sepsis. Patient with most recent event also status post cardiac arrest on and received CPR. -Severe Sepsis with septic shock, recurrent. * Patient with multiple episodes of sepsis. Initial episode due to presumed aspiration pneumonia and septic episode on 09/23 from candidemia then a third episode from peritonitis from gastric perforation from dislodged PEG +/-UTI. Patient was also noted to have had Candidemia with Blood cultures positive for Silvia albicans 09/23, 09/25 but negative on 09/30. Antibiotic discontinued on per ID. patient is s/p R thoracentesis on 11/14, 240cc of serous fluid removed , cx of fluid was negative. Also, Stool negative for C. difficile * Remains afebrile. -Surgical wound infection/gram-negative sepsis/candidemia/peritonitis/fungemia. * Continue wound care to ostomy sites. * Surgery signed off citing "The pt is in a persistent vegatative state and overall prognosis is poor. The drainage does not appear to be enteric in nature and is likely related to prolonged spillage of gastric content prior to repair. No plan for any further surgical tx at this time. Continue supportive care. Will sign off. Would not recommend replacment of G tube given drainage. Continue TPN." * Drainage continues to present over the two stoma bags. -Acute hypoxic respiratory failure, status post tracheostomy on ventilator >96 hrs * Patient Remains on mechanical ventilator. Patient failed T-piece trials. Tracheostomy tube leak. Pulmonary following -Acute massive CVA with mass effect; continue antiplatelets and statins * CT showed continued evolution of left MCA infarct with slight mass effect and edema, and there is no hemorrhage -PRINCE showed hyperdynamic ventricle with ef of 75%, neither clot nor septal defect seen -MRA Brain shows near complete occlusion of M2 and M3 of the left MCA * carotid doppler negative -Echo shows preserved systolic function but does show some left ventricular diastolic dysfunction * continue asa and statin Oliguric acute kidney injury secondary to ATN on CKD - baseline SCr 1.7mg/dL * Continue HD, Nephrology following -Dislodged PEG tube: Status post repair of gastric perforation which wedge gastrectomy -Paroxysmal atrial fibrillation with rapid ventricular rate, failed cardioversion * Continue current medications, Not a candidate for anticoagulation secondary to anemia, thrombocytopenia and massive CVA -Anemia; probably secondary to GI bleeding * Patient received multiple units of PRBC in the past, hemoglobin currently stable -Toxic metabolic encephalopathy With possible persistent vegetative state; supportive care * Family aware, but the state they are still hopeful for meaningful recovery -Diabetes mellitus type 2, Insulin/SSI -Severe protein caloric malnutrition, cont TPN -s/p Thrombocytopenia. Now resolved -DVT prophylaxis, SCDs, no pharmacological agent given anemia , thrombocytopenia , massive stroke -Full code status, very poor prognosis now on TPN 12/18/16: yesterday pt became hypotensive after dialysis and Vasopressin was started by Dr. Lara. She was given iv hydralazine overnight. She is still on Vasopressin, now back in AFib/aflutter with RVR. i d/w Dr. Rollins who recommends iv amiodarone drip without bolus. I also spoke with [facility], Dr. De Leon. per Dr. Rollins: Paroxysmal Afib s/p failed cardioversion on 09/25 on IV lopressor for suppression considered not a candidate for anticoagulation due to severe anemia requiring blood transfusion 12/19/16: still on vasopressin, convert back to sinus, not on Amiodarone. Still on TPN, reorder restraints 12/20/16. * No meaningfull change in mental status. No family at bedside, will review all data, considering my first time returning after a few days. Patient remains on mechanical ventilatory support and daily SBTs as tolerated. weaned off Pressors. Discussed with nursing at bedside. Restraints remain in place for safety. 12/22/16 * started on Amiodarone for rate control * Still unresponsive and still with lots of drainage. OLiguric, may need repeat imaging. will need to reconsult surgery for expectation and family re-dicussion in this patient. Scaral Pressure ulcer * Will re-insert gutierrez as urine although very small is indurating the wound * Wound care consult input noted, awaiting wound surgeon eval The high probability of a clinically significant, sudden or life threatening deterioration of the [pulmonary, neurology, cardiac, hematolgy, nephrology] system(s) required my full and direct attention, intervention and personal management. The aggregate critical care time was [35] minutes. This time is in addition to time spent performing reported procedures but includes the following : [x] Data Review and interpretation [x] Patient assessment and monitoring of vital signs [x] Documentation [x] Medication orders and management History Interval history: patient seen and examined, remains unresponsive on the ventilator. No new event Hospitalist Physical - Physical exam Narrative exam: GEN: Ill appearing, trach, staring into space, not tracking either NECK: SUPPLE, trach in place, ngt in place CVS: regular currently NORMAL S1S2 LUNGS/CHEST: NORMAL CHEST EXPANSION B, GOOD AIR ENTRY B ABD: SOFT, NTND, 3 ostomy bags in 3 different locations, GBS, NO REBOUND OR GUARDING EXT/SKIN: NO SIGNIFICANT EDEMA BUT WITH UNSTAGEABLE SACRAL DECUB MSK: +spontaneous non purposeful movement NEURO: on a ventilator and unresponsive despite being off sedation PSY: Comatose, - Constitutional Vitals: Temp Pulse Resp BP Pulse Ox 97.8 F 92 H 22 120/84 99 12/22/16 16:00 12/22/16 18:00 12/22/16 18:00 12/22/16 18:00 12/22/16 18:13 General appearance: Present: no acute distress, well-nourished, obese Results - Labs CBC & Chem 7: 12/19/16 05:02 12/22/16 06:10 Labs: Laboratory Last Values WBC 20.1 K/mm3 (4.5-11.0) H 12/19/16 05:02 RBC 2.73 M/mm3 (3.65-5.03) L 12/19/16 05:02 Hgb 7.6 gm/dl (10.1-14.3) L 12/19/16 05:02 Hct 23.6 % (30.3-42.9) L 12/19/16 05:02 MCV 86 fl (79-97) 12/19/16 05:02 MCH 28 pg (28-32) 12/19/16 05:02 MCHC 32 % (30-34) 12/19/16 05:02 RDW 17.6 % (13.2-15.2) H 12/19/16 05:02 Plt Count 354 K/mm3 (140-440) 12/19/16 05:02 Lymph % (Auto) [employer] 12/19/16 05:02 [place] % (Auto) [employer] 12/19/16 05:02 Eos % (Auto) [employer] 12/19/16 05:02 Baso % (Auto) [employer] 12/19/16 05:02 Lymph # [employer] 12/19/16 05:02 [place] # [employer] 12/19/16 05:02 Eos # [employer] 12/19/16 05:02 Baso # [employer]ster 12/19/16 05:02 Add Manual Diff Complete 12/19/16 05:02 Total Counted 100 12/19/16 05:02 Seg Neutrophils % [employer] 12/19/16 05:02 Seg Neuts % (Manual) 64.0 % (40.0-70.0) 12/19/16 05:02 Band Neutrophils % 15.0 % 12/19/16 05:02 Lymphocytes % (Manual) 13.0 % (13.4-35.0) L 12/19/16 05:02 Reactive Lymphs % (Man) 0 % 12/19/16 05:02 Monocytes % (Manual) 7.0 % (0.0-7.3) 12/19/16 05:02 Eosinophils % (Manual) 0 % (0.0-4.3) 12/19/16 05:02 Basophils % (Manual) 1.0 % (0.0-1.8) 12/19/16 05:02 Metamyelocytes % 0 % 12/19/16 05:02 Myelocytes % 0 % 12/19/16 05:02 Promyelocytes % 0 % 12/19/16 05:02 Blast Cells % 0 % 12/19/16 05:02 Nucleated RBC % 1.0 % (0.0-0.9) H 12/19/16 05:02 Seg Neutrophils # [employer] 12/19/16 05:02 Seg Neutrophils # Man 12.9 K/mm3 (1.8-7.7) H 12/19/16 05:02 Band Neutrophils # 3.0 K/mm3 12/19/16 05:02 Lymphocytes # (Manual) 2.6 K/mm3 (1.2-5.4) 12/19/16 05:02 Abs React Lymphs (Man) 0.0 K/mm3 12/19/16 05:02 Monocytes # (Manual) 1.4 K/mm3 (0.0-0.8) H 12/19/16 05:02 Eosinophils # (Manual) 0.0 K/mm3 (0.0-0.4) 12/19/16 05:02 Basophils # (Manual) 0.2 K/mm3 (0.0-0.1) H 12/19/16 05:02 Metamyelocytes # 0.0 K/mm3 12/19/16 05:02 Myelocytes # 0.0 K/mm3 12/19/16 05:02 Promyelocytes # 0.0 K/mm3 12/19/16 05:02 Blast Cells # 0.0 K/mm3 12/19/16 05:02 Pathologist Review 09/13/16 04:00 WBC Morphology Not Reportable 12/19/16 05:02 Hypersegmented Neuts Not Reportable 12/19/16 05:02 Hyposegmented Neuts Not Reportable 12/19/16 05:02 Hypogranular Neuts Not Reportable 12/19/16 05:02 Smudge Cells Not Reportable 12/19/16 05:02 Toxic Granulation Not Reportable 12/19/16 05:02 Toxic Vacuolation Not Reportable 12/19/16 05:02 Dohle Bodies Not Reportable 12/19/16 05:02 Pelger-Huet Anomaly Not Reportable 12/19/16 05:02 Jasmina Rods Not Reportable 12/19/16 05:02 Platelet Estimate Consistent w auto 12/19/16 05:02 Clumped Platelets Not Reportable 12/19/16 05:02 Plt Clumps, EDTA Not Reportable 12/19/16 05:02 Large Platelets Not Reportable 12/19/16 05:02 Giant Platelets Not Reportable 12/19/16 05:02 Platelet Satelliting Not Reportable 12/19/16 05:02 Plt Morphology Comment Not Reportable 12/19/16 05:02 RBC Morphology Not Reportable 12/19/16 05:02 Dimorphic RBCs Not Reportable 12/19/16 05:02 Polychromasia Not Reportable 12/19/16 05:02 Hypochromasia Not Reportable 12/19/16 05:02 Poikilocytosis Not Reportable 12/19/16 05:02 Anisocytosis Not Reportable 12/19/16 05:02 Microcytosis Not Reportable 12/19/16 05:02 Macrocytosis Not Reportable 12/19/16 05:02 Spherocytes Not Reportable 12/19/16 05:02 Pappenheimer Bodies Not Reportable 12/19/16 05:02 Sickle Cells Not Reportable 12/19/16 05:02 Target Cells Few 12/19/16 05:02 Tear Drop Cells Not Reportable 12/19/16 05:02 Ovalocytes Not Reportable 12/19/16 05:02 Stomatocytes Rare 12/03/16 04:00 Helmet Cells Not Reportable 12/19/16 05:02 [place] Bodies Not Reportable 12/19/16 05:02 [place] Rings Not Reportable 12/19/16 05:02 Chuck Cells Not Reportable 12/19/16 05:02 Bite Cells Not Reportable 12/19/16 05:02 Crenated Cell Not Reportable 12/19/16 05:02 Elliptocytes Not Reportable 12/19/16 05:02 Acanthocytes (Spur) Not Reportable 12/19/16 05:02 Rouleaux Not Reportable 12/19/16 05:02 Hemoglobin C Crystals Not Reportable 12/19/16 05:02 Schistocytes Not Reportable 12/19/16 05:02 Malaria parasites Not Reportable 12/19/16 05:02 ESR > 140.0 mm/Hr (0-20) 09/08/16 11:48 Jun Bodies Not Reportable 12/19/16 05:02 Hem Pathologist Commnt No 12/19/16 05:02 PT 16.8 Sec. (12.2-14.9) H 11/17/16 03:20 INR 1.37 (0.87-1.13) H 11/17/16 03:20 APTT 33.0 Sec. (24.2-36.6) 10/09/16 03:45 Thrombin Time 16.8 Sec. (15.1-19.6) 09/03/16 00:10 Fibrinogen 750 mg/dl (211-480) H 09/08/16 11:48 Lupus Anticoagulant see below 09/12/16 09:59 LA PTT Baseline See scanned report 09/12/16 09:59 dRVVT Confirm Interp Positive (Negative) H 09/12/16 09:59 dRVVT Screen 50:50 See scanned report 09/12/16 09:59 dRVVT Mix Interpret See scanned report 09/12/16 09:59 Protein C Antigen 122 % (70-140) 09/08/16 15:35 Free Protein S 97 % normal (50-147) 09/08/16 15:35 Total Protein S 109 % (70-140) 09/08/16 15:35 Antithrombin III Ag 100 % (80-120) 09/08/16 15:35 Heparin Anti-Xa, Unfract Negative (Negative) 09/29/16 13:35 Factor V Activity 182 % (65-150) H 09/08/16 15:35 POC ABG pH 7.503 (7.35-7.45) H 12/19/16 09:36 ABG pH 7.450 pH Units (7.350-7.450) 12/05/16 Unknown POC ABG pCO2 30.1 (35-45) L 12/19/16 09:36 ABG pCO2 29.6 mm Hg 12/05/16 Unknown POC ABG pO2 85 (80-105) 12/19/16 09:36 ABG pO2 75.2 mm Hg (80.0-90.0) L 12/05/16 Unknown POC ABG HCO3 23.6 12/19/16 09:36 ABG HCO3 20.1 mmol/L (20.0-26.0) 12/05/16 Unknown POC ABG Total CO2 25 12/19/16 09:36 POC ABG O2 Sat 97 12/19/16 09:36 ABG O2 Saturation 96.8 % (95.0-99.0) 12/05/16 Unknown ABG O2 Content 9.9 (0.0-44) 12/05/16 Unknown POC ABG Base Excess 1 12/19/16 09:36 ABG Base Excess -3.4 mmol/L (-2.0-3.0) L 12/05/16 Unknown ABG Hemoglobin 7.4 gm/dl (12.0-16.0) L 12/05/16 Unknown ABG Carboxyhemoglobin 1.8 % (0.0-5.0) 12/05/16 Unknown ABG Methemoglobin 0.6 % (0.0-1.5) 12/05/16 Unknown Oxyhemoglobin 94.5 % (95.0-99.0) L 12/05/16 Unknown FiO2 28 % 12/19/16 09:36 Sodium 142 mmol/L (137-145) 12/22/16 06:10 Potassium 3.7 mmol/L (3.6-5.0) D 12/22/16 06:10 Chloride 98.6 mmol/L (98-107) 12/22/16 06:10 Carbon Dioxide 25 mmol/L (22-30) 12/22/16 06:10 Anion Gap 22 mmol/L 12/22/16 06:10 BUN 76 mg/dL (7-17) H 12/22/16 06:10 Creatinine 1.5 mg/dL (0.7-1.2) H 12/22/16 06:10 Estimated GFR 45 ml/min 12/22/16 06:10 BUN/Creatinine Ratio 51 % 12/22/16 06:10 Glucose 241 mg/dL (65-100) H 12/22/16 06:10 POC Glucose 148 (70-105) H 12/22/16 17:31 Osmolality 351 Mosm/kg 09/16/16 11:47 Lactic Acid 4.50 mmol/L (0.7-2.0) H* 09/28/16 07:25 Calcium 8.7 mg/dL (8.4-10.2) 12/22/16 06:10 Phosphorus 4.00 mg/dL (2.5-4.5) 12/22/16 06:10 Magnesium 1.90 mg/dL (1.7-2.3) 12/22/16 06:10 Total Bilirubin 0.90 mg/dL (0.1-1.2) 12/18/16 05:00 Direct Bilirubin 0.3 mg/dL (0-0.2) H 10/10/16 05:00 Indirect Bilirubin 0.1 mg/dL 10/10/16 05:00 AST 34 units/L (5-40) 12/18/16 05:00 ALT 42 units/L (7-56) 12/18/16 05:00 Alkaline Phosphatase 257 units/L (35-129) H 12/18/16 05:00 Ammonia 27.0 umol/L (25-60) 09/07/16 08:37 Lactate Dehydrogenase 196 units/L (91-180) H 11/11/16 06:59 Total Creatine Kinase 121 units/L (30-135) 09/29/16 20:12 CK-MB (CK-2) < 1.0 ng/mL (0.0-4.0) 09/29/16 20:12 CK-MB (CK-2) Rel Index 0.8 (0-4) 09/29/16 20:12 Troponin T 0.204 ng/mL (0.00-0.029) H* 09/29/16 20:12 C-Reactive Protein 19.30 mg/dL (0.00-1.30) H 12/05/16 05:00 Total Protein 5.9 g/dL (6.3-8.2) L 12/18/16 05:00 Albumin 1.8 g/dL (3.9-5) L 12/18/16 05:00 Albumin/Globulin Ratio 0.4 % 12/18/16 05:00 Prealbumin 0.180 g/L (0.200-0.400) L 11/06/16 06:25 Triglycerides 137 mg/dL (2-149) 09/29/16 20:12 Cholesterol 31 mg/dL (50-199) L 09/29/16 20:12 LDL Cholesterol Direct 4 mg/dL (50-130) L 09/29/16 20:12 HDL Cholesterol 3 mg/dL (40-59) L 09/29/16 20:12 Cholesterol/HDL Ratio 10.33 % 09/29/16 20:12 Angiotensin Convert Enz See scanned report 09/08/16 11:48 Renin 0.99 ng/mL/h (0.25-5.82) 10/07/16 10:56 Aldosterone <1 ng/dL () 10/07/16 10:56 Aldosterone/Renin Dir see below 10/07/16 10:56 Serotonin Release Assay See scanned report 09/29/16 13:35 TSH 1.010 mlU/mL (0.270-4.200) 09/07/16 08:37 HCG, Qual Negative (Negative) 09/03/16 00:10 Urine Color Yellow (Yellow) 11/05/16 13:09 Urine Turbidity Clear (Clear) 11/05/16 13:09 Urine pH 9.0 (5.0-7.0) H 11/05/16 13:09 Ur Specific [place] 1.011 (1.003-1.030) 11/05/16 13:09 Urine Protein 100 mg/dl mg/dL (Negative) 11/05/16 13:09 Urine Glucose (UA) Neg mg/dL (Negative) 11/05/16 13:09 Urine Ketones Neg mg/dL (Negative) 11/05/16 13:09 Urine Blood Neg (Negative) 11/05/16 13:09 Urine Nitrite Neg (Negative) 11/05/16 13:09 Urine Bilirubin Neg (Negative) 11/05/16 13:09 Urine Urobilinogen < 2.0 mg/dL (<2.0) 11/05/16 13:09 Ur Leukocyte Esterase Neg (Negative) 11/05/16 13:09 Urine WBC (Auto) 4.0 /HPF (0.0-6.0) 11/05/16 13:09 Urine RBC (Auto) 1.0 /HPF (0.0-6.0) 11/05/16 13:09 U Epithel Cells (Auto) 1.0 /HPF (0-13.0) 10/07/16 18:30 Urine Bacteria (Auto) 4+ /HPF (Negative) 11/05/16 13:09 Urine WBC Clumps 2+ /HPF 09/07/16 02:47 Hyaline Casts 4 /LPF 09/07/16 02:47 Urine Mucus Few /HPF 10/07/16 18:30 Urine Yeast (Budding) 3+ /HPF 10/07/16 18:30 Urine Eosinophils None seen (None Seen) 09/07/16 16:00 Urine Total Volume 950 11/12/16 10:18 Urine Creatinine 19.7 mg/dL (0.1-20.0) 11/12/16 10:18 Height (in) 65.0 inches 11/12/16 10:18 Weight (lb) 181.0 lbs 11/12/16 10:18 Creatinine Clearance 5 11/12/16 10:18 Urine Sodium 36 mEq/L 09/16/16 19:19 Urine Total Protein 16 mg/dL (5-11.8) H 09/16/16 19:19 Fluid Total Protein < 3.0 (15.0-45.0) L 11/10/16 14:20 Fluid LDH 123 11/10/16 14:20 Vancomycin Trough 2.3 ug/mL (5.0-20.0) L 09/21/16 13:00 Random Vancomycin 16.5 ug/mL (0-40.0) 11/28/16 09:45 Urine Opiates Screen Presumptive negative 09/03/16 15:11 Urine Methadone Screen Presumptive positive 09/03/16 15:11 Ur Barbiturates Screen Presumptive positive 09/03/16 15:11 Ur Phencyclidine Scrn Presumptive negative 09/03/16 15:11 Ur Amphetamines Screen Presumptive negative 09/03/16 15:11 U Benzodiazepines Scrn Presumptive negative 09/03/16 15:11 Urine Cocaine Screen Presumptive negative 09/03/16 15:11 U Marijuana (THC) Screen Presumptive positive 09/03/16 15:11 Drugs of Abuse Note Disclamer 09/03/16 15:11 Rheumatoid Factor 24 IU/ml (0-13) H 09/08/16 11:48 SAHIL Screen Negative (Negative) 09/07/16 09:20 Proteinase 3 (PR3) Ab <1.0 AI (<1.0) 09/07/16 09:20 Myeloperoxidase Ab <1.0 AI (<1.0) 09/07/16 09:20 Sjogren's Antibody <1.0 AI (<1.0) 09/08/16 15:35 Scl-70 Scleroderma Ab <1.0 AI (<1.0) 09/08/16 15:35 Centromere B Antibody <1.0 AI (<1.0) 09/08/16 12:02 Heparin-induced Plt Ab Negative (Negative) 09/29/16 13:35 UF Heparin High Dose 11 % Release 09/29/16 13:35 SUDHIR UFH Low Dose 0.1 6 % Release 09/29/16 13:35 SUDHIR UFH Low Dose 0.5 8 % Release 09/29/16 13:35 Cardiolipid IgG Ab <14 GPL (<=14) 09/12/16 09:59 Cardiolipid IgA Ab <11 APL (<=11) 09/12/16 09:59 Cardiolipid IgM Ab <12 MPL (<=12) 09/12/16 09:59 Complement C3 148 mg/dL (90-180) 09/07/16 09:20 Complement C4 58 mg/dL (16-47) H 09/07/16 09:20 RPR Nonreactive (Nonreactive) 09/08/16 11:48 Hepatitis A IgM Ab Non-reactive (NonReactive) 09/24/16 14:40 Hep Bs Antigen Non-reactive (Negative) 09/24/16 14:40 Hep B Core IgM Ab Non-reactive (NonReactive) 09/24/16 14:40 Hepatitis C Antibody Non-reactive (NonReactive) 09/24/16 14:40 HIV 1&2 Antibody Rapid Non react (Non React) 09/08/16 11:48 HIV P24 Antigen Non react (Non React) 09/08/16 11:48 Miscellaneous Test Flexitest 1 H 11/05/16 13:25 Blood Type A POSITIVE 12/16/16 16:25 Antibody Screen Negative 12/16/16 16:25 DELORIS Antibody Screen Negative 11/24/16 11:20 Crossmatch See Detail 12/16/16 16:25
[2016-12-22] MEDS ORDERED: TPN ADULT IV SCH (20:00)
[2016-12-23] MEDS: HumuLIN R SUB-Q SCH ×4 (00:36→17:51)
[2016-12-23] MEDS: LOPRESSOR PO SCH ×4 (00:37→17:51)
[2016-12-23] MEDS: DUONEB *Not for PRN Use IH SCH ×4 (01:44→19:17)
[2016-12-23 05:39] LABS: BUN/Creatinine Ratio 49; Blood Urea Nitrogen 49 mg/dL (7-17); Calcium 8.2 mg/dL (8.4-10.2); Hemolysis Index 2
[2016-12-23] MEDS: APRESOLINE PO SCH ×3 (06:21→22:55)
--- NOTE | 2016-12-23 07:36 | Progress Note ---
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 Objective - Vital Signs Vital signs: Vital Signs - 12hr 12/22/16 12/22/16 12/22/16 19:45 20:00 20:15 Temperature 98.7 F Pulse Rate 92 H 93 H 95 H Pulse Rate [ Anterior Bilateral Throughout] Pulse Rate [ 98 H From Monitor] Respiratory 15 22 18 Rate Respiratory Rate [Anterior Bilateral Throughout] Blood Pressure 123/85 121/80 119/81 O2 Sat by Pulse 97 97 97 Oximetry O2 Sat by Pulse Oximetry [ Assessment] 12/22/16 12/22/16 12/22/16 20:30 20:45 21:00 Temperature Pulse Rate 95 H 93 H 92 H Pulse Rate [ Anterior Bilateral Throughout] Pulse Rate [ From Monitor] Respiratory 21 26 H 23 Rate Respiratory Rate [Anterior Bilateral Throughout] Blood Pressure 120/83 110/76 111/69 O2 Sat by Pulse 98 97 97 Oximetry O2 Sat by Pulse Oximetry [ Assessment] 12/22/16 12/22/16 12/22/16 21:15 21:30 21:45 Temperature Pulse Rate 93 H 93 H 94 H Pulse Rate [ Anterior Bilateral Throughout] Pulse Rate [ From Monitor] Respiratory 18 21 26 H Rate Respiratory Rate [Anterior Bilateral Throughout] Blood Pressure 114/76 112/73 117/75 O2 Sat by Pulse 98 97 98 Oximetry O2 Sat by Pulse Oximetry [ Assessment] 12/22/16 12/22/16 12/22/16 21:59 22:00 22:15 Temperature Pulse Rate 95 H 95 H 97 H Pulse Rate [ Anterior Bilateral Throughout] Pulse Rate [ From Monitor] Respiratory 22 23 Rate Respiratory Rate [Anterior Bilateral Throughout] Blood Pressure 117/75 109/76 108/74 O2 Sat by Pulse 97 98 Oximetry O2 Sat by Pulse Oximetry [ Assessment] 12/22/16 12/22/16 12/22/16 22:30 22:45 23:00 Temperature Pulse Rate 99 H 102 H 102 H Pulse Rate [ Anterior Bilateral Throughout] Pulse Rate [ From Monitor] Respiratory 25 H 20 25 H Rate Respiratory Rate [Anterior Bilateral Throughout] Blood Pressure 96/69 109/66 104/61 O2 Sat by Pulse 97 96 95 Oximetry O2 Sat by Pulse Oximetry [ Assessment] 12/22/16 12/22/16 12/22/16 23:15 23:25 23:29 Temperature 97.8 F Pulse Rate 106 H 103 H Pulse Rate [ Anterior Bilateral Throughout] Pulse Rate [ From Monitor] Respiratory 26 H Rate Respiratory Rate [Anterior Bilateral Throughout] Blood Pressure 106/63 104/61 O2 Sat by Pulse 95 99 Oximetry O2 Sat by Pulse Oximetry [ Assessment] 12/22/16 12/22/16 12/22/16 23:30 23:32 23:45 Temperature Pulse Rate 105 H 104 H Pulse Rate [ Anterior Bilateral Throughout] Pulse Rate [ From Monitor] Respiratory 27 H 31 H Rate Respiratory Rate [Anterior Bilateral Throughout] Blood Pressure 112/59 106/60 O2 Sat by Pulse 95 94 Oximetry O2 Sat by Pulse 99 Oximetry [ Assessment] 12/23/16 12/23/16 12/23/16 00:00 00:15 00:30 Temperature Pulse Rate 101 H 100 H 102 H Pulse Rate [ Anterior Bilateral Throughout] Pulse Rate [ 101 H From Monitor] Respiratory 25 H 27 H 26 H Rate Respiratory Rate [Anterior Bilateral Throughout] Blood Pressure 95/58 103/56 108/65 O2 Sat by Pulse 95 96 96 Oximetry O2 Sat by Pulse Oximetry [ Assessment] 12/23/16 12/23/16 12/23/16 00:37 00:45 01:00 Temperature Pulse Rate 100 H 101 H 103 H Pulse Rate [ Anterior Bilateral Throughout] Pulse Rate [ From Monitor] Respiratory 29 H 21 Rate Respiratory Rate [Anterior Bilateral Throughout] Blood Pressure 108/65 105/64 99/60 O2 Sat by Pulse 96 96 Oximetry O2 Sat by Pulse Oximetry [ Assessment] 12/23/16 12/23/16 12/23/16 01:15 01:30 01:44 Temperature Pulse Rate 101 H 103 H Pulse Rate [ 102 H Anterior Bilateral Throughout] Pulse Rate [ From Monitor] Respiratory 28 H 25 H Rate Respiratory 24 Rate [Anterior Bilateral Throughout] Blood Pressure 103/67 110/58 O2 Sat by Pulse 97 97 Oximetry O2 Sat by Pulse Oximetry [ Assessment] 12/23/16 12/23/16 12/23/16 01:45 01:59 02:00 Temperature Pulse Rate 105 H 107 H Pulse Rate [ 104 H Anterior Bilateral Throughout] Pulse Rate [ From Monitor] Respiratory 21 19 Rate Respiratory 24 Rate [Anterior Bilateral Throughout] Blood Pressure 115/62 103/70 O2 Sat by Pulse 96 96 Oximetry O2 Sat by Pulse Oximetry [ Assessment] 12/23/16 12/23/16 12/23/16 02:15 02:30 02:45 Temperature Pulse Rate 105 H 107 H 106 H Pulse Rate [ Anterior Bilateral Throughout] Pulse Rate [ From Monitor] Respiratory 16 28 H 30 H Rate Respiratory Rate [Anterior Bilateral Throughout] Blood Pressure 101/61 108/70 107/69 O2 Sat by Pulse 96 97 96 Oximetry O2 Sat by Pulse Oximetry [ Assessment] 12/23/16 12/23/16 12/23/16 03:00 03:07 03:15 Temperature 98.4 F Pulse Rate 104 H 104 H Pulse Rate [ Anterior Bilateral Throughout] Pulse Rate [ From Monitor] Respiratory 21 29 H Rate Respiratory Rate [Anterior Bilateral Throughout] Blood Pressure 103/67 100/58 O2 Sat by Pulse 95 95 Oximetry O2 Sat by Pulse Oximetry [ Assessment] 12/23/16 12/23/16 12/23/16 03:30 03:45 03:54 Temperature Pulse Rate 101 H 109 H Pulse Rate [ Anterior Bilateral Throughout] Pulse Rate [ From Monitor] Respiratory 34 H Rate Respiratory Rate [Anterior Bilateral Throughout] Blood Pressure 91/50 130/89 130/89 O2 Sat by Pulse 95 97 97 Oximetry O2 Sat by Pulse Oximetry [ Assessment] 12/23/16 12/23/16 12/23/16 04:00 04:15 04:30 Temperature Pulse Rate 110 H 116 H 113 H Pulse Rate [ Anterior Bilateral Throughout] Pulse Rate [ 108 H From Monitor] Respiratory 29 H 17 30 H Rate Respiratory Rate [Anterior Bilateral Throughout] Blood Pressure 119/75 109/85 121/80 O2 Sat by Pulse 97 98 96 Oximetry O2 Sat by Pulse Oximetry [ Assessment] 12/23/16 12/23/16 12/23/16 04:45 05:00 05:16 Temperature Pulse Rate 110 H 110 H 106 H Pulse Rate [ Anterior Bilateral Throughout] Pulse Rate [ From Monitor] Respiratory 25 H 12 19 Rate Respiratory Rate [Anterior Bilateral Throughout] Blood Pressure 114/75 104/77 112/71 O2 Sat by Pulse 90 90 89 Oximetry O2 Sat by Pulse Oximetry [ Assessment] 12/23/16 12/23/16 12/23/16 05:30 05:45 06:00 Temperature Pulse Rate 106 H 106 H 103 H Pulse Rate [ Anterior Bilateral Throughout] Pulse Rate [ From Monitor] Respiratory 36 H 11 L 12 Rate Respiratory Rate [Anterior Bilateral Throughout] Blood Pressure 113/75 99/69 100/68 O2 Sat by Pulse 95 93 91 Oximetry O2 Sat by Pulse Oximetry [ Assessment] 12/23/16 12/23/16 06:15 06:21 Temperature Pulse Rate 100 H 92 H Pulse Rate [ Anterior Bilateral Throughout] Pulse Rate [ From Monitor] Respiratory 12 Rate Respiratory Rate [Anterior Bilateral Throughout] Blood Pressure 103/73 103/73 O2 Sat by Pulse 96 Oximetry O2 Sat by Pulse Oximetry [ Assessment] - General Appearance General appearance: intubated (via trach) EENT: ATNC Neck: other (trach collar) Respiratory: Present: Other (coarse breath sounds) Cardiology: regular, S1S2 Musculoskeletal: other (+ edema) - Lab 12/19/16 05:02 12/23/16 05:00 Most recent lab results ABG pH 7.450 pH Units (7.350-7.450) 12/05/16 Unknown ABG pCO2 29.6 mm Hg 12/05/16 Unknown ABG pO2 75.2 mm Hg (80.0-90.0) L 12/05/16 Unknown ABG HCO3 20.1 mmol/L (20.0-26.0) 12/05/16 Unknown ABG O2 Saturation 96.8 % (95.0-99.0) 12/05/16 Unknown Calcium 8.2 mg/dL (8.4-10.2) L 12/23/16 05:00 Phosphorus 2.60 mg/dL (2.5-4.5) D 12/23/16 05:00 Magnesium 1.60 mg/dL (1.7-2.3) L 12/23/16 05:00 Urine Creatinine 19.7 mg/dL (0.1-20.0) 11/12/16 10:18 Urine Sodium 36 mEq/L 09/16/16 19:19 Urine Total Protein 16 mg/dL (5-11.8) H 09/16/16 19:19
[2016-12-23] MEDS: ZOFRAN IV PRN (09:03)
[2016-12-23] MEDS: PROTONIX FEEDTUBE SCH (09:03)
[2016-12-23] MEDS: HEPARIN SUB-Q SCH ×2 (09:03→22:54)
[2016-12-23] MEDS: CORDARONE PO SCH ×2 (09:03→22:54)
[2016-12-23] MEDS: ROBINUL PO SCH ×2 (09:03→22:54)
[2016-12-23] MEDS: NORVASC PO SCH (10:46)
--- NOTE | 2016-12-23 12:23 | Progress Note ---
Assessment and Plan Acute Hypoxemic Respiratory Failure (now with exacerbation and back on MVS) Hypertension (unable to receive p.o. meds) Atrial Fibrillation with RVR s/p tracheostomy Acute encephalopathy s/p CVA Oropharyngeal dysphagia Enterococcal bacteremia sepsis syndrome Anemia Obesity JUANITA now on hemodialysis Enteric Fistula - relace DHT with NGT and connect to LIS - continue prn vasopressin if MAP falls < 60mmHg - prn CRP & lactate levels if clinically indicated (Follow WBC also) - keep on with daily PSV trials and / or T-piece as tolerated (repeat trial each shift if failed earlier shift)(tolerating today) - continue TPN administration (continue TPN; NPO except for meds) - continue scopolamine for secretion control - continue to wean FiO2 for sats > 94% - continue bronchodilators and pulmonary toilet - VAP bundle addressed - continue prn IV metorolol - continue metoprolol and amlodipine (hold for hypotension) - continue HD/UF per nephrology (Teu/Thurs/Sat) - continue to follow electrolytes and correct as necessary - continue GI & VTE prophylaxis - Continue flu & pneumovax per protocol .....she remains critically ill on life sustaining interventions including MVS and at risk for further deterioration including ....33' CCT today without overlap ...emt intermediate prognosis remains guarded Subjective Date of service: 12/23/16 Principal diagnosis: Acute resp failure on MVS; S/P Acute CVA; Acute Encephalopathy; JUANITA Interval history: Patient is seen today for: Acute resp failure on MVS; S/P Acute CVA; Acute Encephalopathy; UJANITA Seen and examined at bedside; 24hour events reviewed; nursing and respiratory care staff consulted; no adverse overnight events reported to me; remains on MVS ; continued slow billious emesis today; AMS is persistent; tolerating dialysis otherwise Objective Vital Signs - 12hr 12/23/16 12/23/16 12/23/16 00:30 00:37 00:45 Temperature Pulse Rate 102 H 100 H 101 H Pulse Rate [ Anterior Bilateral Throughout] Pulse Rate [ From Monitor] Respiratory 26 H 29 H Rate Respiratory Rate [Anterior Bilateral Throughout] Blood Pressure 108/65 108/65 105/64 O2 Sat by Pulse 96 96 Oximetry 12/23/16 12/23/16 12/23/16 01:00 01:15 01:30 Temperature Pulse Rate 103 H 101 H 103 H Pulse Rate [ Anterior Bilateral Throughout] Pulse Rate [ From Monitor] Respiratory 21 28 H 25 H Rate Respiratory Rate [Anterior Bilateral Throughout] Blood Pressure 99/60 103/67 110/58 O2 Sat by Pulse 96 97 97 Oximetry 12/23/16 12/23/16 12/23/16 01:44 01:45 01:59 Temperature Pulse Rate 105 H Pulse Rate [ 102 H 104 H Anterior Bilateral Throughout] Pulse Rate [ From Monitor] Respiratory 21 Rate Respiratory 24 24 Rate [Anterior Bilateral Throughout] Blood Pressure 115/62 O2 Sat by Pulse 96 Oximetry 12/23/16 12/23/16 12/23/16 02:00 02:15 02:30 Temperature Pulse Rate 107 H 105 H 107 H Pulse Rate [ Anterior Bilateral Throughout] Pulse Rate [ From Monitor] Respiratory 19 16 28 H Rate Respiratory Rate [Anterior Bilateral Throughout] Blood Pressure 103/70 101/61 108/70 O2 Sat by Pulse 96 96 97 Oximetry 12/23/16 12/23/16 12/23/16 02:45 03:00 03:07 Temperature 98.4 F Pulse Rate 106 H 104 H Pulse Rate [ Anterior Bilateral Throughout] Pulse Rate [ From Monitor] Respiratory 30 H 21 Rate Respiratory Rate [Anterior Bilateral Throughout] Blood Pressure 107/69 103/67 O2 Sat by Pulse 96 95 Oximetry 12/23/16 12/23/16 12/23/16 03:15 03:30 03:45 Temperature Pulse Rate 104 H 101 H Pulse Rate [ Anterior Bilateral Throughout] Pulse Rate [ From Monitor] Respiratory 29 H 34 H Rate Respiratory Rate [Anterior Bilateral Throughout] Blood Pressure 100/58 91/50 130/89 O2 Sat by Pulse 95 95 97 Oximetry 12/23/16 12/23/16 12/23/16 03:54 04:00 04:15 Temperature Pulse Rate 109 H 110 H 116 H Pulse Rate [ Anterior Bilateral Throughout] Pulse Rate [ 108 H From Monitor] Respiratory 29 H 17 Rate Respiratory Rate [Anterior Bilateral Throughout] Blood Pressure 130/89 119/75 109/85 O2 Sat by Pulse 97 97 98 Oximetry 12/23/16 12/23/16 12/23/16 04:30 04:45 05:00 Temperature Pulse Rate 113 H 110 H 110 H Pulse Rate [ Anterior Bilateral Throughout] Pulse Rate [ From Monitor] Respiratory 30 H 25 H 12 Rate Respiratory Rate [Anterior Bilateral Throughout] Blood Pressure 121/80 114/75 104/77 O2 Sat by Pulse 96 90 90 Oximetry 12/23/16 12/23/16 12/23/16 05:16 05:30 05:45 Temperature Pulse Rate 106 H 106 H 106 H Pulse Rate [ Anterior Bilateral Throughout] Pulse Rate [ From Monitor] Respiratory 19 36 H 11 L Rate Respiratory Rate [Anterior Bilateral Throughout] Blood Pressure 112/71 113/75 99/69 O2 Sat by Pulse 89 95 93 Oximetry 12/23/16 12/23/16 12/23/16 06:00 06:15 06:21 Temperature Pulse Rate 103 H 100 H 92 H Pulse Rate [ Anterior Bilateral Throughout] Pulse Rate [ From Monitor] Respiratory 12 12 Rate Respiratory Rate [Anterior Bilateral Throughout] Blood Pressure 100/68 103/73 103/73 O2 Sat by Pulse 91 96 Oximetry 12/23/16 12/23/16 12/23/16 07:00 07:15 07:30 Temperature Pulse Rate 88 88 83 Pulse Rate [ Anterior Bilateral Throughout] Pulse Rate [ From Monitor] Respiratory 22 17 20 Rate Respiratory Rate [Anterior Bilateral Throughout] Blood Pressure 83/48 86/55 84/50 O2 Sat by Pulse 98 97 99 Oximetry 12/23/16 12/23/16 12/23/16 07:45 08:00 08:15 Temperature 98.6 F Pulse Rate 89 96 H 86 Pulse Rate [ Anterior Bilateral Throughout] Pulse Rate [ From Monitor] Respiratory 21 22 25 H Rate Respiratory Rate [Anterior Bilateral Throughout] Blood Pressure 91/57 90/53 80/52 O2 Sat by Pulse 94 97 95 Oximetry 12/23/16 12/23/16 12/23/16 08:30 08:45 09:00 Temperature Pulse Rate 96 H 95 H 88 Pulse Rate [ Anterior Bilateral Throughout] Pulse Rate [ From Monitor] Respiratory 22 20 22 Rate Respiratory Rate [Anterior Bilateral Throughout] Blood Pressure 85/45 100/40 101/66 O2 Sat by Pulse 97 97 95 Oximetry 12/23/16 12/23/16 12/23/16 09:15 09:30 09:45 Temperature Pulse Rate 84 87 88 Pulse Rate [ Anterior Bilateral Throughout] Pulse Rate [ From Monitor] Respiratory 16 12 16 Rate Respiratory Rate [Anterior Bilateral Throughout] Blood Pressure 90/56 95/60 88/57 O2 Sat by Pulse 96 98 98 Oximetry 12/23/16 12/23/16 10:00 10:46 Temperature Pulse Rate 102 H Pulse Rate [ Anterior Bilateral Throughout] Pulse Rate [ From Monitor] Respiratory 20 Rate Respiratory Rate [Anterior Bilateral Throughout] Blood Pressure 113/79 97/63 O2 Sat by Pulse 81 L Oximetry Constitutional: appears uncomfortable, other (not tracking) Eyes: non-icteric, other (tracheostomy tube in midline of neck) ENT: oropharynx moist, oropharyngeal exudate pre Neck: supple, no lymphadenopathy, no JVD, other (no thyromegaly) Effort: mildly labored Ascultation: Bilateral: rhonchi (and referred upper airway sounds) Percussion: Bilateral: not dull Cardiovascular: regular rate and rhythm, other (no rubs / murmurs) Gastrointestinal: hypoactive bowel sounds, soft, non-tender, non-distended, other (RLQ & LUQ stomas with colostomy bags) Integumentary: decubitus ulcer (sacral), other (no rash; no cellulitis; poor turgor) Extremities: no cyanosis, pulses normal, no ischemia or petechiae, edema (1+ bilaterally) Neurologic: pupils equal and round, unable to assess, other (encephalopathic) Psychiatric: other (unable to assess) CBC and BMP: 12/19/16 05:02 12/24/16 07:01 ABG, PT/INR, D-dimer: ABG POC ABG pH 7.503 (7.35-7.45) H 12/19/16 09:36 ABG pH 7.450 pH Units (7.350-7.450) 12/05/16 Unknown POC ABG pCO2 30.1 (35-45) L 12/19/16 09:36 ABG pCO2 29.6 mm Hg 12/05/16 Unknown POC ABG pO2 85 (80-105) 12/19/16 09:36 ABG pO2 75.2 mm Hg (80.0-90.0) L 12/05/16 Unknown POC ABG HCO3 23.6 12/19/16 09:36 POC ABG Total CO2 25 12/19/16 09:36 POC ABG O2 Sat 97 12/19/16 09:36 ABG O2 Saturation 96.8 % (95.0-99.0) 12/05/16 Unknown PT/INR, D-dimer PT 16.8 Sec. (12.2-14.9) H 11/17/16 03:20 INR 1.37 (0.87-1.13) H 11/17/16 03:20 Abnormal lab findings: Abnormal Labs 09/03/16 09/03/16 09/03/16 12:12 15:07 16:20 WBC RBC Hgb Hct MCV MCH MCHC RDW Plt Count Lymph % (Auto) [place] % (Auto) Lymph # [place] # Baso # Seg Neutrophils % Seg Neuts % (Manual) Lymphocytes % (Manual) Monocytes % (Manual) Eosinophils % (Manual) Basophils % (Manual) Nucleated RBC % Seg Neutrophils # Seg Neutrophils # Man Lymphocytes # (Manual) Monocytes # (Manual) Eosinophils # (Manual) Basophils # (Manual) PT INR Fibrinogen dRVVT Confirm Interp Factor V Activity POC ABG pH 7.452 H POC ABG pCO2 POC ABG pO2 ABG pO2 ABG HCO3 ABG Base Excess ABG Hemoglobin Oxyhemoglobin Sodium Potassium Chloride Carbon Dioxide BUN Creatinine Glucose POC Glucose 178 H Lactic Acid Calcium Phosphorus 2.20 L Magnesium 1.60 L Direct Bilirubin AST ALT Alkaline Phosphatase Lactate Dehydrogenase Troponin T C-Reactive Protein Total Protein Albumin Prealbumin Triglycerides Cholesterol LDL Cholesterol Direct HDL Cholesterol Urine pH Urine WBC (Auto) Urine Creatinine Urine Total Protein Fluid Total Protein Vancomycin Trough Rheumatoid Factor Complement C4 Miscellaneous Test Crossmatch 09/03/16 09/03/16 09/03/16 17:57 17:58 23:50 WBC RBC Hgb Hct MCV MCH MCHC RDW Plt Count Lymph % (Auto) [place] % (Auto) Lymph # [place] # Baso # Seg Neutrophils % Seg Neuts % (Manual) Lymphocytes % (Manual) Monocytes % (Manual) Eosinophils % (Manual) Basophils % (Manual) Nucleated RBC % Seg Neutrophils # Seg Neutrophils # Man Lymphocytes # (Manual) Monocytes # (Manual) Eosinophils # (Manual) Basophils # (Manual) PT INR Fibrinogen dRVVT Confirm Interp Factor V Activity POC ABG pH POC ABG pCO2 POC ABG pO2 ABG pO2 ABG HCO3 ABG Base Excess ABG Hemoglobin Oxyhemoglobin Sodium Potassium Chloride Carbon Dioxide BUN Creatinine Glucose POC Glucose 162 H 145 H Lactic Acid Calcium Phosphorus 2.30 L Magnesium Direct Bilirubin AST ALT Alkaline Phosphatase Lactate Dehydrogenase Troponin T C-Reactive Protein Total Protein Albumin Prealbumin Triglycerides Cholesterol LDL Cholesterol Direct HDL Cholesterol Urine pH Urine WBC (Auto) Urine Creatinine Urine Total Protein Fluid Total Protein Vancomycin Trough Rheumatoid Factor Complement C4 Miscellaneous Test Crossmatch 0709/04/16 09/04/16 03:31 03:31 05:42 WBC RBC Hgb 9.7 L D Hct MCV 72 L MCH 23 L MCHC RDW 17.5 H Plt Count Lymph % (Auto) 11.1 L [place] % (Auto) Lymph # [place] # Baso # Seg Neutrophils % 84.3 H Seg Neuts % (Manual) Lymphocytes % (Manual) Monocytes % (Manual) Eosinophils % (Manual) Basophils % (Manual) Nucleated RBC % Seg Neutrophils # 8.9 H Seg Neutrophils # Man Lymphocytes # (Manual) Monocytes # (Manual) Eosinophils # (Manual) Basophils # (Manual) PT INR Fibrinogen dRVVT Confirm Interp Factor V Activity POC ABG pH POC ABG pCO2 POC ABG pO2 ABG pO2 ABG HCO3 ABG Base Excess ABG Hemoglobin Oxyhemoglobin Sodium 135 L Potassium 2.9 L* Chloride 97.2 L Carbon Dioxide 19 L BUN Creatinine 1.7 H Glucose 170 H POC Glucose 152 H Lactic Acid Calcium Phosphorus Magnesium Direct Bilirubin AST ALT Alkaline Phosphatase Lactate Dehydrogenase Troponin T C-Reactive Protein Total Protein Albumin Prealbumin Triglycerides 160 H Cholesterol LDL Cholesterol Direct HDL Cholesterol 31 L Urine pH Urine WBC (Auto) Urine Creatinine Urine Total Protein Fluid Total Protein Vancomycin Trough Rheumatoid Factor Complement C4 Miscellaneous Test Crossmatch 09/04/16 09/04/16 09/04/16 11:34 17:46 23:29 WBC RBC Hgb Hct MCV MCH MCHC RDW Plt Count Lymph % (Auto) [place] % (Auto) Lymph # [place] # Baso # Seg Neutrophils % Seg Neuts % (Manual) Lymphocytes % (Manual) Monocytes % (Manual) Eosinophils % (Manual) Basophils % (Manual) Nucleated RBC % Seg Neutrophils # Seg Neutrophils # Man Lymphocytes # (Manual) Monocytes # (Manual) Eosinophils # (Manual) Basophils # (Manual) PT INR Fibrinogen dRVVT Confirm Interp Factor V Activity POC ABG pH POC ABG pCO2 POC ABG pO2 ABG pO2 ABG HCO3 ABG Base Excess ABG Hemoglobin Oxyhemoglobin Sodium Potassium Chloride Carbon Dioxide BUN Creatinine Glucose POC Glucose 165 H 210 H 139 H Lactic Acid Calcium Phosphorus Magnesium Direct Bilirubin AST ALT Alkaline Phosphatase Lactate Dehydrogenase Troponin T C-Reactive Protein Total Protein Albumin Prealbumin Triglycerides Cholesterol LDL Cholesterol Direct HDL Cholesterol Urine pH Urine WBC (Auto) Urine Creatinine Urine Total Protein Fluid Total Protein Vancomycin Trough Rheumatoid Factor Complement C4 Miscellaneous Test Crossmatch 09/05/16 09/05/16 09/05/16 04:05 04:05 05:38 WBC RBC Hgb Hct MCV 76 L D MCH 23 L MCHC RDW 17.8 H Plt Count Lymph % (Auto) [place] % (Auto) Lymph # [place] # Baso # Seg Neutrophils % Seg Neuts % (Manual) Lymphocytes % (Manual) Monocytes % (Manual) Eosinophils % (Manual) Basophils % (Manual) Nucleated RBC % Seg Neutrophils # Seg Neutrophils # Man Lymphocytes # (Manual) Monocytes # (Manual) Eosinophils # (Manual) Basophils # (Manual) PT INR Fibrinogen dRVVT Confirm Interp Factor V Activity POC ABG pH POC ABG pCO2 POC ABG pO2 ABG pO2 ABG HCO3 ABG Base Excess ABG Hemoglobin Oxyhemoglobin Sodium 134 L Potassium Chloride Carbon Dioxide 18 L BUN Creatinine 1.8 H Glucose 192 H POC Glucose 175 H Lactic Acid Calcium Phosphorus Magnesium Direct Bilirubin AST ALT Alkaline Phosphatase Lactate Dehydrogenase Troponin T C-Reactive Protein Total Protein Albumin Prealbumin Triglycerides Cholesterol LDL Cholesterol Direct HDL Cholesterol Urine pH Urine WBC (Auto) Urine Creatinine Urine Total Protein Fluid Total Protein Vancomycin Trough Rheumatoid Factor Complement C4 Miscellaneous Test Crossmatch 09/05/16 09/05/16 09/05/16 11:38 17:48 23:22 WBC RBC Hgb Hct MCV MCH MCHC RDW Plt Count Lymph % (Auto) [place] % (Auto) Lymph # [place] # Baso # Seg Neutrophils % Seg Neuts % (Manual) Lymphocytes % (Manual) Monocytes % (Manual) Eosinophils % (Manual) Basophils % (Manual) Nucleated RBC % Seg Neutrophils # Seg Neutrophils # Man Lymphocytes # (Manual) Monocytes # (Manual) Eosinophils # (Manual) Basophils # (Manual) PT INR Fibrinogen dRVVT Confirm Interp Factor V Activity POC ABG pH POC ABG pCO2 POC ABG pO2 ABG pO2 ABG HCO3 ABG Base Excess ABG Hemoglobin Oxyhemoglobin Sodium Potassium Chloride Carbon Dioxide BUN Creatinine Glucose POC Glucose 164 H 186 H 195 H Lactic Acid Calcium Phosphorus Magnesium Direct Bilirubin AST ALT Alkaline Phosphatase Lactate Dehydrogenase Troponin T C-Reactive Protein Total Protein Albumin Prealbumin Triglycerides Cholesterol LDL Cholesterol Direct HDL Cholesterol Urine pH Urine WBC (Auto) Urine Creatinine Urine Total Protein Fluid Total Protein Vancomycin Trough Rheumatoid Factor Complement C4 Miscellaneous Test Crossmatch 09/06/16 09/06/16 09/06/16 04:12 05:59 07:32 WBC RBC Hgb Hct MCV MCH MCHC RDW Plt Count Lymph % (Auto) [place] % (Auto) Lymph # [place] # Baso # Seg Neutrophils % Seg Neuts % (Manual) Lymphocytes % (Manual) Monocytes % (Manual) Eosinophils % (Manual) Basophils % (Manual) Nucleated RBC % Seg Neutrophils # Seg Neutrophils # Man Lymphocytes # (Manual) Monocytes # (Manual) Eosinophils # (Manual) Basophils # (Manual) PT INR Fibrinogen dRVVT Confirm Interp Factor V Activity POC ABG pH 7.514 H POC ABG pCO2 29.1 L POC ABG pO2 72 L ABG pO2 ABG HCO3 ABG Base Excess ABG Hemoglobin Oxyhemoglobin Sodium 133 L Potassium 3.4 L Chloride 94.9 L Carbon Dioxide 19 L BUN 30 H Creatinine 2.1 H Glucose 139 H POC Glucose 146 H Lactic Acid Calcium Phosphorus Magnesium Direct Bilirubin AST ALT Alkaline Phosphatase Lactate Dehydrogenase Troponin T C-Reactive Protein Total Protein Albumin Prealbumin Triglycerides Cholesterol LDL Cholesterol Direct HDL Cholesterol Urine pH Urine WBC (Auto) Urine Creatinine Urine Total Protein Fluid Total Protein Vancomycin Trough Rheumatoid Factor Complement C4 Miscellaneous Test Crossmatch 09/06/16 09/06/16 09/06/16 11:57 17:58 19:02 WBC RBC Hgb Hct MCV MCH MCHC RDW Plt Count Lymph % (Auto) [place] % (Auto) Lymph # [place] # Baso # Seg Neutrophils % Seg Neuts % (Manual) Lymphocytes % (Manual) Monocytes % (Manual) Eosinophils % (Manual) Basophils % (Manual) Nucleated RBC % Seg Neutrophils # Seg Neutrophils # Man Lymphocytes # (Manual) Monocytes # (Manual) Eosinophils # (Manual) Basophils # (Manual) PT INR Fibrinogen dRVVT Confirm Interp Factor V Activity POC ABG pH 7.465 H POC ABG pCO2 32.0 L POC ABG pO2 ABG pO2 ABG HCO3 ABG Base Excess ABG Hemoglobin Oxyhemoglobin Sodium Potassium Chloride Carbon Dioxide BUN Creatinine Glucose POC Glucose 165 H 160 H Lactic Acid Calcium Phosphorus Magnesium Direct Bilirubin AST ALT Alkaline Phosphatase Lactate Dehydrogenase Troponin T C-Reactive Protein Total Protein Albumin Prealbumin Triglycerides Cholesterol LDL Cholesterol Direct HDL Cholesterol Urine pH Urine WBC (Auto) Urine Creatinine Urine Total Protein Fluid Total Protein Vancomycin Trough Rheumatoid Factor Complement C4 Miscellaneous Test Crossmatch 09/06/16 09/07/16 09/07/16 23:45 02:47 02:47 WBC RBC Hgb Hct MCV MCH MCHC RDW Plt Count Lymph % (Auto) [place] % (Auto) Lymph # [place] # Baso # Seg Neutrophils % Seg Neuts % (Manual) Lymphocytes % (Manual) Monocytes % (Manual) Eosinophils % (Manual) Basophils % (Manual) Nucleated RBC % Seg Neutrophils # Seg Neutrophils # Man Lymphocytes # (Manual) Monocytes # (Manual) Eosinophils # (Manual) Basophils # (Manual) PT INR Fibrinogen dRVVT Confirm Interp Factor V Activity POC ABG pH POC ABG pCO2 POC ABG pO2 ABG pO2 ABG HCO3 ABG Base Excess ABG Hemoglobin Oxyhemoglobin Sodium Potassium Chloride Carbon Dioxide BUN Creatinine Glucose POC Glucose 204 H Lactic Acid Calcium Phosphorus Magnesium Direct Bilirubin AST ALT Alkaline Phosphatase Lactate Dehydrogenase Troponin T C-Reactive Protein Total Protein Albumin Prealbumin Triglycerides Cholesterol LDL Cholesterol Direct HDL Cholesterol Urine pH Urine WBC (Auto) 68.0 H Urine Creatinine 106.1 H Urine Total Protein Fluid Total Protein Vancomycin Trough Rheumatoid Factor Complement C4 Miscellaneous Test Crossmatch 09/07/16 09/07/16 09/07/16 04:50 06:19 06:39 WBC RBC Hgb Hct MCV MCH MCHC RDW Plt Count Lymph % (Auto) [place] % (Auto) Lymph # [place] # Baso # Seg Neutrophils % Seg Neuts % (Manual) Lymphocytes % (Manual) Monocytes % (Manual) Eosinophils % (Manual) Basophils % (Manual) Nucleated RBC % Seg Neutrophils # Seg Neutrophils # Man Lymphocytes # (Manual) Monocytes # (Manual) Eosinophils # (Manual) Basophils # (Manual) PT INR Fibrinogen dRVVT Confirm Interp Factor V Activity POC ABG pH 7.457 H POC ABG pCO2 32.1 L POC ABG pO2 76 L ABG pO2 ABG HCO3 ABG Base Excess ABG Hemoglobin Oxyhemoglobin Sodium 132 L Potassium Chloride 94.7 L Carbon Dioxide BUN 53 H Creatinine 2.9 H Glucose 151 H POC Glucose 149 H Lactic Acid Calcium Phosphorus Magnesium Direct Bilirubin AST ALT Alkaline Phosphatase Lactate Dehydrogenase Troponin T C-Reactive Protein Total Protein Albumin Prealbumin Triglycerides Cholesterol LDL Cholesterol Direct HDL Cholesterol Urine pH Urine WBC (Auto) Urine Creatinine Urine Total Protein Fluid Total Protein Vancomycin Trough Rheumatoid Factor Complement C4 Miscellaneous Test Crossmatch 09/07/16 09/07/16 09/07/16 09:20 11:43 11:43 WBC 19.4 H RBC Hgb 8.3 L Hct 26.4 L D MCV 72 L D MCH 22 L MCHC RDW 17.9 H Plt Count Lymph % (Auto) 8.5 L [place] % (Auto) Lymph # [place] # 1.0 H Baso # Seg Neutrophils % 85.8 H Seg Neuts % (Manual) Lymphocytes % (Manual) Monocytes % (Manual) Eosinophils % (Manual) Basophils % (Manual) Nucleated RBC % Seg Neutrophils # 16.6 H Seg Neutrophils # Man Lymphocytes # (Manual) Monocytes # (Manual) Eosinophils # (Manual) Basophils # (Manual) PT INR Fibrinogen dRVVT Confirm Interp Factor V Activity POC ABG pH POC ABG pCO2 POC ABG pO2 ABG pO2 ABG HCO3 ABG Base Excess ABG Hemoglobin Oxyhemoglobin Sodium 134 L Potassium Chloride 97.2 L Carbon Dioxide 20 L BUN 58 H Creatinine 2.9 H Glucose 147 H POC Glucose Lactic Acid Calcium Phosphorus 2.40 L Magnesium 2.40 H Direct Bilirubin AST ALT Alkaline Phosphatase Lactate Dehydrogenase Troponin T C-Reactive Protein Total Protein 5.8 L Albumin 2.2 L Prealbumin Triglycerides Cholesterol LDL Cholesterol Direct HDL Cholesterol Urine pH Urine WBC (Auto) Urine Creatinine Urine Total Protein Fluid Total Protein Vancomycin Trough Rheumatoid Factor Complement C4 58 H Miscellaneous Test Crossmatch 09/07/16 09/07/16 09/07/16 11:50 16:00 17:31 WBC RBC Hgb Hct MCV MCH MCHC RDW Plt Count Lymph % (Auto) [place] % (Auto) Lymph # [place] # Baso # Seg Neutrophils % Seg Neuts % (Manual) Lymphocytes % (Manual) Monocytes % (Manual) Eosinophils % (Manual) Basophils % (Manual) Nucleated RBC % Seg Neutrophils # Seg Neutrophils # Man Lymphocytes # (Manual) Monocytes # (Manual) Eosinophils # (Manual) Basophils # (Manual) PT INR Fibrinogen dRVVT Confirm Interp Factor V Activity POC ABG pH POC ABG pCO2 POC ABG pO2 158 H ABG pO2 ABG HCO3 ABG Base Excess ABG Hemoglobin Oxyhemoglobin Sodium Potassium Chloride Carbon Dioxide BUN Creatinine Glucose POC Glucose 175 H Lactic Acid Calcium Phosphorus Magnesium Direct Bilirubin AST ALT Alkaline Phosphatase Lactate Dehydrogenase Troponin T C-Reactive Protein Total Protein Albumin Prealbumin Triglycerides Cholesterol LDL Cholesterol Direct HDL Cholesterol Urine pH Urine WBC (Auto) Urine Creatinine 66.3 H Urine Total Protein Fluid Total Protein Vancomycin Trough Rheumatoid Factor Complement C4 Miscellaneous Test Crossmatch 09/07/16 09/08/16 09/08/16 23:50 05:46 06:18 WBC 17.8 H RBC 3.58 L Hgb 8.1 L Hct 25.5 L MCV 71 L MCH 23 L MCHC RDW 18.4 H Plt Count Lymph % (Auto) [place] % (Auto) Lymph # [place] # Baso # Seg Neutrophils % Seg Neuts % (Manual) 92.0 H Lymphocytes % (Manual) 6.0 L Monocytes % (Manual) Eosinophils % (Manual) Basophils % (Manual) Nucleated RBC % Seg Neutrophils # Seg Neutrophils # Man 16.4 H Lymphocytes # (Manual) 1.1 L Monocytes # (Manual) Eosinophils # (Manual) Basophils # (Manual) PT INR Fibrinogen dRVVT Confirm Interp Factor V Activity POC ABG pH POC ABG pCO2 34.3 L POC ABG pO2 71 L ABG pO2 ABG HCO3 ABG Base Excess ABG Hemoglobin Oxyhemoglobin Sodium Potassium Chloride Carbon Dioxide BUN Creatinine Glucose POC Glucose 216 H Lactic Acid Calcium Phosphorus Magnesium Direct Bilirubin AST ALT Alkaline Phosphatase Lactate Dehydrogenase Troponin T C-Reactive Protein Total Protein Albumin Prealbumin Triglycerides Cholesterol LDL Cholesterol Direct HDL Cholesterol Urine pH Urine WBC (Auto) Urine Creatinine Urine Total Protein Fluid Total Protein Vancomycin Trough Rheumatoid Factor Complement C4 Miscellaneous Test Crossmatch 09/08/16 09/08/16 09/08/16 06:18 06:51 10:55 WBC RBC Hgb Hct MCV MCH MCHC RDW Plt Count Lymph % (Auto) [place] % (Auto) Lymph # [place] # Baso # Seg Neutrophils % Seg Neuts % (Manual) Lymphocytes % (Manual) Monocytes % (Manual) Eosinophils % (Manual) Basophils % (Manual) Nucleated RBC % Seg Neutrophils # Seg Neutrophils # Man Lymphocytes # (Manual) Monocytes # (Manual) Eosinophils # (Manual) Basophils # (Manual) PT INR Fibrinogen dRVVT Confirm Interp Factor V Activity POC ABG pH POC ABG pCO2 POC ABG pO2 ABG pO2 ABG HCO3 ABG Base Excess ABG Hemoglobin Oxyhemoglobin Sodium 133 L Potassium Chloride 96.9 L Carbon Dioxide 20 L BUN 63 H Creatinine 2.7 H Glucose 195 H POC Glucose 204 H 169 H Lactic Acid Calcium Phosphorus Magnesium Direct Bilirubin AST ALT Alkaline Phosphatase Lactate Dehydrogenase Troponin T C-Reactive Protein Total Protein Albumin Prealbumin Triglycerides Cholesterol LDL Cholesterol Direct HDL Cholesterol Urine pH Urine WBC (Auto) Urine Creatinine Urine Total Protein Fluid Total Protein Vancomycin Trough Rheumatoid Factor Complement C4 Miscellaneous Test Crossmatch 07/20/17 07/20/17 07/20/17 11:48 11:48 11:48 WBC RBC Hgb Hct MCV MCH MCHC RDW Plt Count Lymph % (Auto) [place] % (Auto) Lymph # [place] # Baso # Seg Neutrophils % Seg Neuts % (Manual) Lymphocytes % (Manual) Monocytes % (Manual) Eosinophils % (Manual) Basophils % (Manual) Nucleated RBC % Seg Neutrophils # Seg Neutrophils # Man Lymphocytes # (Manual) Monocytes # (Manual) Eosinophils # (Manual) Basophils # (Manual) PT INR Fibrinogen 750 H dRVVT Confirm Interp Factor V Activity POC ABG pH POC ABG pCO2 POC ABG pO2 ABG pO2 ABG HCO3 ABG Base Excess ABG Hemoglobin Oxyhemoglobin Sodium Potassium Chloride Carbon Dioxide BUN Creatinine Glucose POC Glucose Lactic Acid Calcium Phosphorus Magnesium Direct Bilirubin AST ALT Alkaline Phosphatase Lactate Dehydrogenase Troponin T C-Reactive Protein 15.70 H Total Protein Albumin Prealbumin Triglycerides Cholesterol LDL Cholesterol Direct HDL Cholesterol Urine pH Urine WBC (Auto) Urine Creatinine Urine Total Protein Fluid Total Protein Vancomycin Trough Rheumatoid Factor 24 H Complement C4 Miscellaneous Test Crossmatch 09/08/16 09/08/16 09/09/16 15:35 18:25 00:24 WBC RBC Hgb Hct MCV MCH MCHC RDW Plt Count Lymph % (Auto) [place] % (Auto) Lymph # [place] # Baso # Seg Neutrophils % Seg Neuts % (Manual) Lymphocytes % (Manual) Monocytes % (Manual) Eosinophils % (Manual) Basophils % (Manual) Nucleated RBC % Seg Neutrophils # Seg Neutrophils # Man Lymphocytes # (Manual) Monocytes # (Manual) Eosinophils # (Manual) Basophils # (Manual) PT INR Fibrinogen dRVVT Confirm Interp Factor V Activity 182 H POC ABG pH POC ABG pCO2 POC ABG pO2 ABG pO2 ABG HCO3 ABG Base Excess ABG Hemoglobin Oxyhemoglobin Sodium Potassium Chloride Carbon Dioxide BUN Creatinine Glucose POC Glucose 184 H 216 H Lactic Acid Calcium Phosphorus Magnesium Direct Bilirubin AST ALT Alkaline Phosphatase Lactate Dehydrogenase Troponin T C-Reactive Protein Total Protein Albumin Prealbumin Triglycerides Cholesterol LDL Cholesterol Direct HDL Cholesterol Urine pH Urine WBC (Auto) Urine Creatinine Urine Total Protein Fluid Total Protein Vancomycin Trough Rheumatoid Factor Complement C4 Miscellaneous Test Crossmatch 09/09/16 09/09/16 09/09/16 03:00 03:00 04:04 WBC 27.9 H RBC Hgb 8.7 L Hct 28.1 L MCV 72 L MCH 22 L MCHC RDW 18.4 H Plt Count 485 H Lymph % (Auto) [place] % (Auto) Lymph # [place] # Baso # Seg Neutrophils % Seg Neuts % (Manual) 77.0 H Lymphocytes % (Manual) 9.0 L Monocytes % (Manual) Eosinophils % (Manual) Basophils % (Manual) Nucleated RBC % Seg Neutrophils # Seg Neutrophils # Man 21.5 H Lymphocytes # (Manual) Monocytes # (Manual) 2.0 H Eosinophils # (Manual) Basophils # (Manual) PT INR Fibrinogen dRVVT Confirm Interp Factor V Activity POC ABG pH POC ABG pCO2 POC ABG pO2 121 H ABG pO2 ABG HCO3 ABG Base Excess ABG Hemoglobin Oxyhemoglobin Sodium 135 L Potassium Chloride 96.3 L Carbon Dioxide 21 L BUN 83 H Creatinine 3.0 H Glucose 135 H POC Glucose Lactic Acid Calcium Phosphorus Magnesium Direct Bilirubin AST ALT Alkaline Phosphatase Lactate Dehydrogenase Troponin T C-Reactive Protein Total Protein Albumin Prealbumin Triglycerides Cholesterol LDL Cholesterol Direct HDL Cholesterol Urine pH Urine WBC (Auto) Urine Creatinine Urine Total Protein Fluid Total Protein Vancomycin Trough Rheumatoid Factor Complement C4 Miscellaneous Test Crossmatch 09/09/16 09/09/16 09/09/16 05:41 11:55 14:13 WBC RBC Hgb Hct MCV MCH MCHC RDW Plt Count Lymph % (Auto) [place] % (Auto) Lymph # [place] # Baso # Seg Neutrophils % Seg Neuts % (Manual) Lymphocytes % (Manual) Monocytes % (Manual) Eosinophils % (Manual) Basophils % (Manual) Nucleated RBC % Seg Neutrophils # Seg Neutrophils # Man Lymphocytes # (Manual) Monocytes # (Manual) Eosinophils # (Manual) Basophils # (Manual) PT INR Fibrinogen dRVVT Confirm Interp Factor V Activity POC ABG pH POC ABG pCO2 POC ABG pO2 ABG pO2 ABG HCO3 ABG Base Excess ABG Hemoglobin Oxyhemoglobin Sodium Potassium Chloride Carbon Dioxide BUN Creatinine Glucose POC Glucose 155 H 186 H Lactic Acid Calcium Phosphorus Magnesium Direct Bilirubin AST ALT Alkaline Phosphatase Lactate Dehydrogenase Troponin T C-Reactive Protein Total Protein Albumin Prealbumin Triglycerides Cholesterol LDL Cholesterol Direct HDL Cholesterol Urine pH Urine WBC (Auto) 25.0 H Urine Creatinine Urine Total Protein Fluid Total Protein Vancomycin Trough Rheumatoid Factor Complement C4 Miscellaneous Test Crossmatch 09/09/16 09/09/16 09/10/16 17:33 23:13 05:09 WBC RBC Hgb Hct MCV MCH MCHC RDW Plt Count Lymph % (Auto) [place] % (Auto) Lymph # [place] # Baso # Seg Neutrophils % Seg Neuts % (Manual) Lymphocytes % (Manual) Monocytes % (Manual) Eosinophils % (Manual) Basophils % (Manual) Nucleated RBC % Seg Neutrophils # Seg Neutrophils # Man Lymphocytes # (Manual) Monocytes # (Manual) Eosinophils # (Manual) Basophils # (Manual) PT INR Fibrinogen dRVVT Confirm Interp Factor V Activity POC ABG pH POC ABG pCO2 POC ABG pO2 74 L ABG pO2 ABG HCO3 ABG Base Excess ABG Hemoglobin Oxyhemoglobin Sodium Potassium Chloride Carbon Dioxide BUN Creatinine Glucose POC Glucose 211 H 215 H Lactic Acid Calcium Phosphorus Magnesium Direct Bilirubin AST ALT Alkaline Phosphatase Lactate Dehydrogenase Troponin T C-Reactive Protein Total Protein Albumin Prealbumin Triglycerides Cholesterol LDL Cholesterol Direct HDL Cholesterol Urine pH Urine WBC (Auto) Urine Creatinine Urine Total Protein Fluid Total Protein Vancomycin Trough Rheumatoid Factor Complement C4 Miscellaneous Test Crossmatch 09/10/16 09/10/16 09/10/16 05:17 05:17 11:31 WBC 15.8 H RBC 3.25 L Hgb 7.3 L Hct 22.9 L MCV 71 L MCH 23 L MCHC RDW 18.4 H Plt Count Lymph % (Auto) [place] % (Auto) Lymph # [place] # Baso # Seg Neutrophils % Seg Neuts % (Manual) 91.0 H Lymphocytes % (Manual) 4.0 L Monocytes % (Manual) Eosinophils % (Manual) Basophils % (Manual) Nucleated RBC % Seg Neutrophils # Seg Neutrophils # Man 14.4 H Lymphocytes # (Manual) 0.6 L Monocytes # (Manual) Eosinophils # (Manual) Basophils # (Manual) PT INR Fibrinogen dRVVT Confirm Interp Factor V Activity POC ABG pH POC ABG pCO2 POC ABG pO2 ABG pO2 ABG HCO3 ABG Base Excess ABG Hemoglobin Oxyhemoglobin Sodium Potassium Chloride Carbon Dioxide 21 L BUN 93 H Creatinine 2.9 H Glucose 146 H POC Glucose 188 H Lactic Acid Calcium 8.1 L Phosphorus Magnesium Direct Bilirubin AST ALT Alkaline Phosphatase Lactate Dehydrogenase Troponin T C-Reactive Protein Total Protein Albumin Prealbumin Triglycerides Cholesterol LDL Cholesterol Direct HDL Cholesterol Urine pH Urine WBC (Auto) Urine Creatinine Urine Total Protein Fluid Total Protein Vancomycin Trough Rheumatoid Factor Complement C4 Miscellaneous Test Crossmatch 09/10/16 09/10/16 09/10/16 13:17 17:20 23:32 WBC RBC Hgb Hct MCV MCH MCHC RDW Plt Count Lymph % (Auto) [place] % (Auto) Lymph # [place] # Baso # Seg Neutrophils % Seg Neuts % (Manual) Lymphocytes % (Manual) Monocytes % (Manual) Eosinophils % (Manual) Basophils % (Manual) Nucleated RBC % Seg Neutrophils # Seg Neutrophils # Man Lymphocytes # (Manual) Monocytes # (Manual) Eosinophils # (Manual) Basophils # (Manual) PT INR Fibrinogen dRVVT Confirm Interp Factor V Activity POC ABG pH POC ABG pCO2 POC ABG pO2 ABG pO2 ABG HCO3 ABG Base Excess ABG Hemoglobin Oxyhemoglobin Sodium Potassium Chloride Carbon Dioxide BUN Creatinine Glucose POC Glucose 199 H 186 H Lactic Acid Calcium Phosphorus Magnesium Direct Bilirubin AST ALT Alkaline Phosphatase Lactate Dehydrogenase Troponin T C-Reactive Protein Total Protein Albumin Prealbumin Triglycerides Cholesterol LDL Cholesterol Direct HDL Cholesterol Urine pH Urine WBC (Auto) Urine Creatinine Urine Total Protein Fluid Total Protein Vancomycin Trough Rheumatoid Factor Complement C4 Miscellaneous Test Crossmatch See Detail 09/11/16 09/11/16 09/11/16 05:10 05:10 05:17 WBC 28.4 H RBC Hgb 9.2 L Hct 29.3 L D MCV 73 L MCH 23 L MCHC RDW 18.9 H Plt Count 452 H Lymph % (Auto) [place] % (Auto) Lymph # [place] # Baso # Seg Neutrophils % Seg Neuts % (Manual) 89.5 H Lymphocytes % (Manual) 2.0 L Monocytes % (Manual) Eosinophils % (Manual) Basophils % (Manual) Nucleated RBC % Seg Neutrophils # Seg Neutrophils # Man 25.4 H Lymphocytes # (Manual) 0.6 L Monocytes # (Manual) 1.3 H Eosinophils # (Manual) Basophils # (Manual) PT INR Fibrinogen dRVVT Confirm Interp Factor V Activity POC ABG pH POC ABG pCO2 POC ABG pO2 ABG pO2 ABG HCO3 ABG Base Excess ABG Hemoglobin Oxyhemoglobin Sodium 136 L Potassium Chloride Carbon Dioxide 18 L BUN 107 H Creatinine 2.6 H Glucose 187 H POC Glucose 230 H Lactic Acid Calcium 8.3 L Phosphorus Magnesium Direct Bilirubin AST ALT Alkaline Phosphatase Lactate Dehydrogenase Troponin T C-Reactive Protein Total Protein Albumin Prealbumin Triglycerides Cholesterol LDL Cholesterol Direct HDL Cholesterol Urine pH Urine WBC (Auto) Urine Creatinine Urine Total Protein Fluid Total Protein Vancomycin Trough Rheumatoid Factor Complement C4 Miscellaneous Test Crossmatch 09/11/16 09/11/16 09/11/16 05:55 12:02 17:32 WBC RBC Hgb Hct MCV MCH MCHC RDW Plt Count Lymph % (Auto) [place] % (Auto) Lymph # [place] # Baso # Seg Neutrophils % Seg Neuts % (Manual) Lymphocytes % (Manual) Monocytes % (Manual) Eosinophils % (Manual) Basophils % (Manual) Nucleated RBC % Seg Neutrophils # Seg Neutrophils # Man Lymphocytes # (Manual) Monocytes # (Manual) Eosinophils # (Manual) Basophils # (Manual) PT INR Fibrinogen dRVVT Confirm Interp Factor V Activity POC ABG pH POC ABG pCO2 33.8 L POC ABG pO2 ABG pO2 ABG HCO3 ABG Base Excess ABG Hemoglobin Oxyhemoglobin Sodium Potassium Chloride Carbon Dioxide BUN Creatinine Glucose POC Glucose 191 H 239 H Lactic Acid Calcium Phosphorus Magnesium Direct Bilirubin AST ALT Alkaline Phosphatase Lactate Dehydrogenase Troponin T C-Reactive Protein Total Protein Albumin Prealbumin Triglycerides Cholesterol LDL Cholesterol Direct HDL Cholesterol Urine pH Urine WBC (Auto) Urine Creatinine Urine Total Protein Fluid Total Protein Vancomycin Trough Rheumatoid Factor Complement C4 Miscellaneous Test Crossmatch 09/11/16 09/12/16 09/12/16 23:52 05:09 05:32 WBC RBC Hgb Hct MCV MCH MCHC RDW Plt Count Lymph % (Auto) [place] % (Auto) Lymph # [place] # Baso # Seg Neutrophils % Seg Neuts % (Manual) Lymphocytes % (Manual) Monocytes % (Manual) Eosinophils % (Manual) Basophils % (Manual) Nucleated RBC % Seg Neutrophils # Seg Neutrophils # Man Lymphocytes # (Manual) Monocytes # (Manual) Eosinophils # (Manual) Basophils # (Manual) PT INR Fibrinogen dRVVT Confirm Interp Factor V Activity POC ABG pH POC ABG pCO2 34.6 L POC ABG pO2 ABG pO2 ABG HCO3 ABG Base Excess ABG Hemoglobin Oxyhemoglobin Sodium Potassium Chloride Carbon Dioxide BUN Creatinine Glucose POC Glucose 265 H 184 H Lactic Acid Calcium Phosphorus Magnesium Direct Bilirubin AST ALT Alkaline Phosphatase Lactate Dehydrogenase Troponin T C-Reactive Protein Total Protein Albumin Prealbumin Triglycerides Cholesterol LDL Cholesterol Direct HDL Cholesterol Urine pH Urine WBC (Auto) Urine Creatinine Urine Total Protein Fluid Total Protein Vancomycin Trough Rheumatoid Factor Complement C4 Miscellaneous Test Crossmatch 09/12/16 09/12/16 09/12/16 06:45 06:45 07:22 WBC 31.7 H RBC 3.54 L Hgb 8.3 L Hct 25.9 L MCV 73 L MCH 23 L MCHC RDW 18.9 H Plt Count Lymph % (Auto) [place] % (Auto) Lymph # [place] # Baso # Seg Neutrophils % Seg Neuts % (Manual) 88.5 H Lymphocytes % (Manual) 4.5 L Monocytes % (Manual) Eosinophils % (Manual) Basophils % (Manual) Nucleated RBC % Seg Neutrophils # Seg Neutrophils # Man 28.1 H Lymphocytes # (Manual) Monocytes # (Manual) 1.0 H Eosinophils # (Manual) Basophils # (Manual) PT INR Fibrinogen dRVVT Confirm Interp Factor V Activity POC ABG pH POC ABG pCO2 POC ABG pO2 ABG pO2 ABG HCO3 ABG Base Excess ABG Hemoglobin Oxyhemoglobin Sodium Potassium Chloride Carbon Dioxide 20 L BUN 115 H Creatinine 2.7 H Glucose 165 H POC Glucose Lactic Acid Calcium 8.0 L Phosphorus Magnesium Direct Bilirubin AST ALT Alkaline Phosphatase Lactate Dehydrogenase Troponin T C-Reactive Protein Total Protein Albumin Prealbumin Triglycerides 217 H Cholesterol LDL Cholesterol Direct HDL Cholesterol Urine pH Urine WBC (Auto) Urine Creatinine Urine Total Protein Fluid Total Protein Vancomycin Trough Rheumatoid Factor Complement C4 Miscellaneous Test Crossmatch 09/12/16 09/12/16 09/12/16 07:22 09:59 12:21 WBC RBC Hgb Hct MCV MCH MCHC RDW Plt Count Lymph % (Auto) [place] % (Auto) Lymph # [place] # Baso # Seg Neutrophils % Seg Neuts % (Manual) Lymphocytes % (Manual) Monocytes % (Manual) Eosinophils % (Manual) Basophils % (Manual) Nucleated RBC % Seg Neutrophils # Seg Neutrophils # Man Lymphocytes # (Manual) Monocytes # (Manual) Eosinophils # (Manual) Basophils # (Manual) PT INR Fibrinogen dRVVT Confirm Interp Positive H Factor V Activity POC ABG pH POC ABG pCO2 POC ABG pO2 ABG pO2 ABG HCO3 ABG Base Excess ABG Hemoglobin Oxyhemoglobin Sodium Potassium Chloride Carbon Dioxide BUN Creatinine Glucose POC Glucose 224 H Lactic Acid Calcium Phosphorus Magnesium Direct Bilirubin AST ALT Alkaline Phosphatase Lactate Dehydrogenase Troponin T C-Reactive Protein 1.70 H Total Protein Albumin Prealbumin Triglycerides Cholesterol LDL Cholesterol Direct HDL Cholesterol Urine pH Urine WBC (Auto) Urine Creatinine Urine Total Protein Fluid Total Protein Vancomycin Trough Rheumatoid Factor Complement C4 Miscellaneous Test Crossmatch 09/12/16 09/12/16 09/13/16 16:51 23:28 04:00 WBC 45.0 H* RBC Hgb 9.4 L Hct MCV 75 L MCH 23 L MCHC RDW 19.0 H Plt Count 470 H Lymph % (Auto) [place] % (Auto) Lymph # [place] # Baso # Seg Neutrophils % Seg Neuts % (Manual) 89.0 H Lymphocytes % (Manual) 5.0 L Monocytes % (Manual) Eosinophils % (Manual) Basophils % (Manual) Nucleated RBC % Seg Neutrophils # Seg Neutrophils # Man 40.1 H Lymphocytes # (Manual) Monocytes # (Manual) Eosinophils # (Manual) Basophils # (Manual) PT INR Fibrinogen dRVVT Confirm Interp Factor V Activity POC ABG pH POC ABG pCO2 POC ABG pO2 ABG pO2 ABG HCO3 ABG Base Excess ABG Hemoglobin Oxyhemoglobin Sodium Potassium Chloride Carbon Dioxide BUN Creatinine Glucose POC Glucose 169 H 150 H Lactic Acid Calcium Phosphorus Magnesium Direct Bilirubin AST ALT Alkaline Phosphatase Lactate Dehydrogenase Troponin T C-Reactive Protein Total Protein Albumin Prealbumin Triglycerides Cholesterol LDL Cholesterol Direct HDL Cholesterol Urine pH Urine WBC (Auto) Urine Creatinine Urine Total Protein Fluid Total Protein Vancomycin Trough Rheumatoid Factor Complement C4 Miscellaneous Test Crossmatch 09/13/16 09/13/16 09/13/16 04:00 11:26 17:31 WBC RBC Hgb Hct MCV MCH MCHC RDW Plt Count Lymph % (Auto) [place] % (Auto) Lymph # [place] # Baso # Seg Neutrophils % Seg Neuts % (Manual) Lymphocytes % (Manual) Monocytes % (Manual) Eosinophils % (Manual) Basophils % (Manual) Nucleated RBC % Seg Neutrophils # Seg Neutrophils # Man Lymphocytes # (Manual) Monocytes # (Manual) Eosinophils # (Manual) Basophils # (Manual) PT INR Fibrinogen dRVVT Confirm Interp Factor V Activity POC ABG pH POC ABG pCO2 POC ABG pO2 ABG pO2 ABG HCO3 ABG Base Excess ABG Hemoglobin Oxyhemoglobin Sodium Potassium Chloride Carbon Dioxide 20 L BUN 116 H Creatinine 3.0 H Glucose 172 H POC Glucose 140 H 183 H Lactic Acid Calcium Phosphorus Magnesium Direct Bilirubin AST ALT Alkaline Phosphatase Lactate Dehydrogenase Troponin T C-Reactive Protein Total Protein 6.2 L Albumin 2.9 L Prealbumin Triglycerides Cholesterol LDL Cholesterol Direct HDL Cholesterol Urine pH Urine WBC (Auto) Urine Creatinine Urine Total Protein Fluid Total Protein Vancomycin Trough Rheumatoid Factor Complement C4 Miscellaneous Test Crossmatch 09/13/16 09/14/16 09/14/16 23:23 04:06 04:07 WBC 29.4 H RBC Hgb 8.9 L Hct 27.3 L MCV 75 L MCH 24 L MCHC RDW 19.1 H Plt Count Lymph % (Auto) [place] % (Auto) Lymph # [place] # Baso # Seg Neutrophils % Seg Neuts % (Manual) 84.0 H Lymphocytes % (Manual) 6.0 L Monocytes % (Manual) 9.0 H Eosinophils % (Manual) Basophils % (Manual) Nucleated RBC % Seg Neutrophils # Seg Neutrophils # Man 24.7 H Lymphocytes # (Manual) Monocytes # (Manual) 2.6 H Eosinophils # (Manual) Basophils # (Manual) PT INR Fibrinogen dRVVT Confirm Interp Factor V Activity POC ABG pH 7.342 L POC ABG pCO2 POC ABG pO2 116 H ABG pO2 ABG HCO3 ABG Base Excess ABG Hemoglobin Oxyhemoglobin Sodium Potassium Chloride Carbon Dioxide BUN Creatinine Glucose POC Glucose 154 H Lactic Acid Calcium Phosphorus Magnesium Direct Bilirubin AST ALT Alkaline Phosphatase Lactate Dehydrogenase Troponin T C-Reactive Protein Total Protein Albumin Prealbumin Triglycerides Cholesterol LDL Cholesterol Direct HDL Cholesterol Urine pH Urine WBC (Auto) Urine Creatinine Urine Total Protein Fluid Total Protein Vancomycin Trough Rheumatoid Factor Complement C4 Miscellaneous Test Crossmatch 09/14/16 09/14/16 09/14/16 04:07 05:29 12:19 WBC RBC Hgb Hct MCV MCH MCHC RDW Plt Count Lymph % (Auto) [place] % (Auto) Lymph # [place] # Baso # Seg Neutrophils % Seg Neuts % (Manual) Lymphocytes % (Manual) Monocytes % (Manual) Eosinophils % (Manual) Basophils % (Manual) Nucleated RBC % Seg Neutrophils # Seg Neutrophils # Man Lymphocytes # (Manual) Monocytes # (Manual) Eosinophils # (Manual) Basophils # (Manual) PT INR Fibrinogen dRVVT Confirm Interp Factor V Activity POC ABG pH POC ABG pCO2 POC ABG pO2 ABG pO2 ABG HCO3 ABG Base Excess ABG Hemoglobin Oxyhemoglobin Sodium 136 L Potassium Chloride Carbon Dioxide 18 L BUN 121 H Creatinine 2.8 H Glucose 214 H POC Glucose 239 H 181 H Lactic Acid Calcium Phosphorus Magnesium Direct Bilirubin AST ALT Alkaline Phosphatase Lactate Dehydrogenase Troponin T C-Reactive Protein Total Protein Albumin Prealbumin Triglycerides Cholesterol LDL Cholesterol Direct HDL Cholesterol Urine pH Urine WBC (Auto) Urine Creatinine Urine Total Protein Fluid Total Protein Vancomycin Trough Rheumatoid Factor Complement C4 Miscellaneous Test Crossmatch 09/14/16 09/14/16 09/15/16 18:12 23:37 05:00 WBC 26.1 H RBC 3.05 L Hgb 7.2 L Hct 22.9 L MCV 75 L MCH 24 L MCHC RDW 19.0 H Plt Count Lymph % (Auto) [place] % (Auto) Lymph # [place] # Baso # Seg Neutrophils % Seg Neuts % (Manual) Lymphocytes % (Manual) Monocytes % (Manual) Eosinophils % (Manual) Basophils % (Manual) Nucleated RBC % Seg Neutrophils # Seg Neutrophils # Man Lymphocytes # (Manual) Monocytes # (Manual) Eosinophils # (Manual) Basophils # (Manual) PT INR Fibrinogen dRVVT Confirm Interp Factor V Activity POC ABG pH POC ABG pCO2 POC ABG pO2 ABG pO2 ABG HCO3 ABG Base Excess ABG Hemoglobin Oxyhemoglobin Sodium Potassium Chloride Carbon Dioxide BUN Creatinine Glucose POC Glucose 266 H 154 H Lactic Acid Calcium Phosphorus Magnesium Direct Bilirubin AST ALT Alkaline Phosphatase Lactate Dehydrogenase Troponin T C-Reactive Protein Total Protein Albumin Prealbumin Triglycerides Cholesterol LDL Cholesterol Direct HDL Cholesterol Urine pH Urine WBC (Auto) Urine Creatinine Urine Total Protein Fluid Total Protein Vancomycin Trough Rheumatoid Factor Complement C4 Miscellaneous Test Crossmatch 09/15/16 09/15/16 09/15/16 05:00 05:17 12:45 WBC RBC Hgb Hct MCV MCH MCHC RDW Plt Count Lymph % (Auto) [place] % (Auto) Lymph # [place] # Baso # Seg Neutrophils % Seg Neuts % (Manual) Lymphocytes % (Manual) Monocytes % (Manual) Eosinophils % (Manual) Basophils % (Manual) Nucleated RBC % Seg Neutrophils # Seg Neutrophils # Man Lymphocytes # (Manual) Monocytes # (Manual) Eosinophils # (Manual) Basophils # (Manual) PT INR Fibrinogen dRVVT Confirm Interp Factor V Activity POC ABG pH POC ABG pCO2 POC ABG pO2 ABG pO2 ABG HCO3 ABG Base Excess ABG Hemoglobin Oxyhemoglobin Sodium Potassium 5.2 H Chloride Carbon Dioxide 18 L BUN 139 H Creatinine 3.7 H Glucose 227 H POC Glucose 226 H 244 H Lactic Acid Calcium 8.3 L Phosphorus Magnesium Direct Bilirubin AST ALT Alkaline Phosphatase Lactate Dehydrogenase Troponin T C-Reactive Protein Total Protein Albumin Prealbumin Triglycerides Cholesterol LDL Cholesterol Direct HDL Cholesterol Urine pH Urine WBC (Auto) Urine Creatinine Urine Total Protein Fluid Total Protein Vancomycin Trough Rheumatoid Factor Complement C4 Miscellaneous Test Crossmatch 09/15/16 09/15/16 09/15/16 14:32 17:33 23:35 WBC RBC Hgb Hct MCV MCH MCHC RDW Plt Count Lymph % (Auto) [place] % (Auto) Lymph # [place] # Baso # Seg Neutrophils % Seg Neuts % (Manual) Lymphocytes % (Manual) Monocytes % (Manual) Eosinophils % (Manual) Basophils % (Manual) Nucleated RBC % Seg Neutrophils # Seg Neutrophils # Man Lymphocytes # (Manual) Monocytes # (Manual) Eosinophils # (Manual) Basophils # (Manual) PT INR Fibrinogen dRVVT Confirm Interp Factor V Activity POC ABG pH POC ABG pCO2 27.7 L POC ABG pO2 120 H ABG pO2 ABG HCO3 ABG Base Excess ABG Hemoglobin Oxyhemoglobin Sodium Potassium Chloride Carbon Dioxide BUN Creatinine Glucose POC Glucose 232 H 167 H Lactic Acid Calcium Phosphorus Magnesium Direct Bilirubin AST ALT Alkaline Phosphatase Lactate Dehydrogenase Troponin T C-Reactive Protein Total Protein Albumin Prealbumin Triglycerides Cholesterol LDL Cholesterol Direct HDL Cholesterol Urine pH Urine WBC (Auto) Urine Creatinine Urine Total Protein Fluid Total Protein Vancomycin Trough Rheumatoid Factor Complement C4 Miscellaneous Test Crossmatch 09/16/16 09/16/16 09/16/16 03:58 10:27 10:27 WBC 19.0 H RBC 2.77 L Hgb 6.5 L Hct 20.9 L MCV 76 L MCH 23 L MCHC RDW 19.3 H Plt Count Lymph % (Auto) 11.0 L [place] % (Auto) Lymph # [place] # 1.1 H Baso # Seg Neutrophils % 82.5 H Seg Neuts % (Manual) Lymphocytes % (Manual) Monocytes % (Manual) Eosinophils % (Manual) Basophils % (Manual) Nucleated RBC % Seg Neutrophils # 15.7 H Seg Neutrophils # Man Lymphocytes # (Manual) Monocytes # (Manual) Eosinophils # (Manual) Basophils # (Manual) PT INR Fibrinogen dRVVT Confirm Interp Factor V Activity POC ABG pH POC ABG pCO2 POC ABG pO2 ABG pO2 ABG HCO3 ABG Base Excess ABG Hemoglobin Oxyhemoglobin Sodium Potassium Chloride 109.3 H Carbon Dioxide 18 L BUN 139 H Creatinine 4.1 H Glucose 144 H POC Glucose 146 H Lactic Acid Calcium 8.1 L Phosphorus Magnesium Direct Bilirubin AST ALT Alkaline Phosphatase Lactate Dehydrogenase Troponin T C-Reactive Protein Total Protein Albumin Prealbumin Triglycerides Cholesterol LDL Cholesterol Direct HDL Cholesterol Urine pH Urine WBC (Auto) Urine Creatinine Urine Total Protein Fluid Total Protein Vancomycin Trough Rheumatoid Factor Complement C4 Miscellaneous Test Crossmatch 09/16/16 09/16/16 09/16/16 12:04 12:10 13:55 WBC RBC Hgb Hct MCV MCH MCHC RDW Plt Count Lymph % (Auto) [place] % (Auto) Lymph # [place] # Baso # Seg Neutrophils % Seg Neuts % (Manual) Lymphocytes % (Manual) Monocytes % (Manual) Eosinophils % (Manual) Basophils % (Manual) Nucleated RBC % Seg Neutrophils # Seg Neutrophils # Man Lymphocytes # (Manual) Monocytes # (Manual) Eosinophils # (Manual) Basophils # (Manual) PT INR Fibrinogen dRVVT Confirm Interp Factor V Activity POC ABG pH POC ABG pCO2 32.9 L POC ABG pO2 ABG pO2 ABG HCO3 ABG Base Excess ABG Hemoglobin Oxyhemoglobin Sodium Potassium Chloride Carbon Dioxide BUN Creatinine Glucose POC Glucose 185 H Lactic Acid Calcium Phosphorus Magnesium Direct Bilirubin AST ALT Alkaline Phosphatase Lactate Dehydrogenase Troponin T C-Reactive Protein Total Protein Albumin Prealbumin Triglycerides Cholesterol LDL Cholesterol Direct HDL Cholesterol Urine pH Urine WBC (Auto) Urine Creatinine Urine Total Protein Fluid Total Protein Vancomycin Trough Rheumatoid Factor Complement C4 Miscellaneous Test Crossmatch See Detail 09/16/16 09/16/16 09/16/16 17:55 19:19 23:48 WBC RBC Hgb Hct MCV MCH MCHC RDW Plt Count Lymph % (Auto) [place] % (Auto) Lymph # [place] # Baso # Seg Neutrophils % Seg Neuts % (Manual) Lymphocytes % (Manual) Monocytes % (Manual) Eosinophils % (Manual) Basophils % (Manual) Nucleated RBC % Seg Neutrophils # Seg Neutrophils # Man Lymphocytes # (Manual) Monocytes # (Manual) Eosinophils # (Manual) Basophils # (Manual) PT INR Fibrinogen dRVVT Confirm Interp Factor V Activity POC ABG pH POC ABG pCO2 POC ABG pO2 ABG pO2 ABG HCO3 ABG Base Excess ABG Hemoglobin Oxyhemoglobin Sodium Potassium Chloride Carbon Dioxide BUN Creatinine Glucose POC Glucose 222 H 107 H Lactic Acid Calcium Phosphorus Magnesium Direct Bilirubin AST ALT Alkaline Phosphatase Lactate Dehydrogenase Troponin T C-Reactive Protein Total Protein Albumin Prealbumin Triglycerides Cholesterol LDL Cholesterol Direct HDL Cholesterol Urine pH Urine WBC (Auto) Urine Creatinine 47.4 H Urine Total Protein 16 H Fluid Total Protein Vancomycin Trough Rheumatoid Factor Complement C4 Miscellaneous Test Crossmatch 09/17/16 09/17/16 09/17/16 03:45 03:45 04:55 WBC 19.6 H RBC 3.41 L Hgb 8.5 L Hct 26.7 L MCV 78 L MCH 25 L MCHC RDW 19.9 H Plt Count Lymph % (Auto) 9.3 L [place] % (Auto) Lymph # [place] # 1.2 H Baso # Seg Neutrophils % 83.9 H Seg Neuts % (Manual) Lymphocytes % (Manual) Monocytes % (Manual) Eosinophils % (Manual) Basophils % (Manual) Nucleated RBC % Seg Neutrophils # 16.4 H Seg Neutrophils # Man Lymphocytes # (Manual) Monocytes # (Manual) Eosinophils # (Manual) Basophils # (Manual) PT INR Fibrinogen dRVVT Confirm Interp Factor V Activity POC ABG pH POC ABG pCO2 POC ABG pO2 ABG pO2 ABG HCO3 ABG Base Excess ABG Hemoglobin Oxyhemoglobin Sodium 146 H Potassium 5.1 H Chloride 110.9 H Carbon Dioxide 16 L BUN 146 H Creatinine 4.0 H Glucose 108 H POC Glucose 133 H Lactic Acid Calcium Phosphorus Magnesium 3.00 H Direct Bilirubin AST ALT Alkaline Phosphatase Lactate Dehydrogenase Troponin T C-Reactive Protein Total Protein Albumin Prealbumin Triglycerides Cholesterol LDL Cholesterol Direct HDL Cholesterol Urine pH Urine WBC (Auto) Urine Creatinine Urine Total Protein Fluid Total Protein Vancomycin Trough Rheumatoid Factor Complement C4 Miscellaneous Test Crossmatch 09/17/16 09/17/16 09/17/16 11:15 17:33 23:47 WBC RBC Hgb Hct MCV MCH MCHC RDW Plt Count Lymph % (Auto) [place] % (Auto) Lymph # [place] # Baso # Seg Neutrophils % Seg Neuts % (Manual) Lymphocytes % (Manual) Monocytes % (Manual) Eosinophils % (Manual) Basophils % (Manual) Nucleated RBC % Seg Neutrophils # Seg Neutrophils # Man Lymphocytes # (Manual) Monocytes # (Manual) Eosinophils # (Manual) Basophils # (Manual) PT INR Fibrinogen dRVVT Confirm Interp Factor V Activity POC ABG pH POC ABG pCO2 POC ABG pO2 ABG pO2 ABG HCO3 ABG Base Excess ABG Hemoglobin Oxyhemoglobin Sodium Potassium Chloride Carbon Dioxide BUN Creatinine Glucose POC Glucose 176 H 246 H 148 H Lactic Acid Calcium Phosphorus Magnesium Direct Bilirubin AST ALT Alkaline Phosphatase Lactate Dehydrogenase Troponin T C-Reactive Protein Total Protein Albumin Prealbumin Triglycerides Cholesterol LDL Cholesterol Direct HDL Cholesterol Urine pH Urine WBC (Auto) Urine Creatinine Urine Total Protein Fluid Total Protein Vancomycin Trough Rheumatoid Factor Complement C4 Miscellaneous Test Crossmatch 09/18/16 09/18/16 09/18/16 05:33 08:31 08:31 WBC 18.0 H RBC 3.17 L Hgb 9.0 L Hct 25.7 L MCV MCH MCHC 35 H RDW 20.4 H Plt Count Lymph % (Auto) [place] % (Auto) Lymph # [place] # Baso # Seg Neutrophils % Seg Neuts % (Manual) Lymphocytes % (Manual) Monocytes % (Manual) Eosinophils % (Manual) Basophils % (Manual) Nucleated RBC % Seg Neutrophils # Seg Neutrophils # Man Lymphocytes # (Manual) Monocytes # (Manual) Eosinophils # (Manual) Basophils # (Manual) PT INR Fibrinogen dRVVT Confirm Interp Factor V Activity POC ABG pH POC ABG pCO2 POC ABG pO2 ABG pO2 ABG HCO3 ABG Base Excess ABG Hemoglobin Oxyhemoglobin Sodium Potassium Chloride Carbon Dioxide 15 L BUN 124 H Creatinine 3.8 H Glucose POC Glucose 120 H Lactic Acid Calcium 8.1 L Phosphorus Magnesium Direct Bilirubin AST ALT Alkaline Phosphatase Lactate Dehydrogenase Troponin T C-Reactive Protein Total Protein Albumin Prealbumin Triglycerides Cholesterol LDL Cholesterol Direct HDL Cholesterol Urine pH Urine WBC (Auto) Urine Creatinine Urine Total Protein Fluid Total Protein Vancomycin Trough Rheumatoid Factor Complement C4 Miscellaneous Test Crossmatch 09/18/16 09/18/16 09/18/16 12:03 15:34 17:50 WBC RBC Hgb Hct MCV MCH MCHC RDW Plt Count Lymph % (Auto) [place] % (Auto) Lymph # [place] # Baso # Seg Neutrophils % Seg Neuts % (Manual) Lymphocytes % (Manual) Monocytes % (Manual) Eosinophils % (Manual) Basophils % (Manual) Nucleated RBC % Seg Neutrophils # Seg Neutrophils # Man Lymphocytes # (Manual) Monocytes # (Manual) Eosinophils # (Manual) Basophils # (Manual) PT INR Fibrinogen dRVVT Confirm Interp Factor V Activity POC ABG pH POC ABG pCO2 25.7 L POC ABG pO2 66 L ABG pO2 ABG HCO3 ABG Base Excess ABG Hemoglobin Oxyhemoglobin Sodium Potassium Chloride Carbon Dioxide BUN Creatinine Glucose POC Glucose 156 H 220 H Lactic Acid Calcium Phosphorus Magnesium Direct Bilirubin AST ALT Alkaline Phosphatase Lactate Dehydrogenase Troponin T C-Reactive Protein Total Protein Albumin Prealbumin Triglycerides Cholesterol LDL Cholesterol Direct HDL Cholesterol Urine pH Urine WBC (Auto) Urine Creatinine Urine Total Protein Fluid Total Protein Vancomycin Trough Rheumatoid Factor Complement C4 Miscellaneous Test Crossmatch 09/19/16 09/19/16 09/19/16 06:21 09:50 09:50 WBC 17.1 H RBC 3.49 L Hgb 9.0 L Hct 28.1 L MCV MCH 26 L MCHC RDW 20.8 H Plt Count Lymph % (Auto) 11.5 L [place] % (Auto) 7.5 H Lymph # [place] # 1.3 H Baso # Seg Neutrophils % 79.8 H Seg Neuts % (Manual) Lymphocytes % (Manual) Monocytes % (Manual) Eosinophils % (Manual) Basophils % (Manual) Nucleated RBC % Seg Neutrophils # 13.7 H Seg Neutrophils # Man Lymphocytes # (Manual) Monocytes # (Manual) Eosinophils # (Manual) Basophils # (Manual) PT INR Fibrinogen dRVVT Confirm Interp Factor V Activity POC ABG pH POC ABG pCO2 POC ABG pO2 ABG pO2 ABG HCO3 ABG Base Excess ABG Hemoglobin Oxyhemoglobin Sodium Potassium Chloride 108.6 H Carbon Dioxide 15 L BUN 125 H Creatinine 4.1 H Glucose 124 H POC Glucose 119 H Lactic Acid Calcium Phosphorus Magnesium Direct Bilirubin AST ALT Alkaline Phosphatase Lactate Dehydrogenase Troponin T C-Reactive Protein Total Protein Albumin Prealbumin Triglycerides Cholesterol LDL Cholesterol Direct HDL Cholesterol Urine pH Urine WBC (Auto) Urine Creatinine Urine Total Protein Fluid Total Protein Vancomycin Trough Rheumatoid Factor Complement C4 Miscellaneous Test Crossmatch 09/19/16 09/19/16 09/19/16 11:25 17:53 23:36 WBC RBC Hgb Hct MCV MCH MCHC RDW Plt Count Lymph % (Auto) [place] % (Auto) Lymph # [place] # Baso # Seg Neutrophils % Seg Neuts % (Manual) Lymphocytes % (Manual) Monocytes % (Manual) Eosinophils % (Manual) Basophils % (Manual) Nucleated RBC % Seg Neutrophils # Seg Neutrophils # Man Lymphocytes # (Manual) Monocytes # (Manual) Eosinophils # (Manual) Basophils # (Manual) PT INR Fibrinogen dRVVT Confirm Interp Factor V Activity POC ABG pH POC ABG pCO2 POC ABG pO2 ABG pO2 ABG HCO3 ABG Base Excess ABG Hemoglobin Oxyhemoglobin Sodium Potassium Chloride Carbon Dioxide BUN Creatinine Glucose POC Glucose 160 H 245 H 121 H Lactic Acid Calcium Phosphorus Magnesium Direct Bilirubin AST ALT Alkaline Phosphatase Lactate Dehydrogenase Troponin T C-Reactive Protein Total Protein Albumin Prealbumin Triglycerides Cholesterol LDL Cholesterol Direct HDL Cholesterol Urine pH Urine WBC (Auto) Urine Creatinine Urine Total Protein Fluid Total Protein Vancomycin Trough Rheumatoid Factor Complement C4 Miscellaneous Test Crossmatch 09/20/16 09/20/16 09/20/16 04:10 04:10 04:10 WBC 17.0 H RBC 3.21 L Hgb 8.2 L Hct 25.5 L MCV MCH 26 L MCHC RDW 20.9 H Plt Count Lymph % (Auto) [place] % (Auto) Lymph # [place] # Baso # Seg Neutrophils % Seg Neuts % (Manual) Lymphocytes % (Manual) Monocytes % (Manual) Eosinophils % (Manual) Basophils % (Manual) Nucleated RBC % Seg Neutrophils # Seg Neutrophils # Man Lymphocytes # (Manual) Monocytes # (Manual) Eosinophils # (Manual) Basophils # (Manual) PT INR Fibrinogen dRVVT Confirm Interp Factor V Activity POC ABG pH POC ABG pCO2 POC ABG pO2 ABG pO2 ABG HCO3 ABG Base Excess ABG Hemoglobin Oxyhemoglobin Sodium Potassium Chloride 111.0 H Carbon Dioxide 16 L BUN 129 H Creatinine 3.7 H Glucose 115 H POC Glucose Lactic Acid Calcium 8.2 L Phosphorus Magnesium Direct Bilirubin AST ALT Alkaline Phosphatase Lactate Dehydrogenase Troponin T C-Reactive Protein Total Protein Albumin Prealbumin Triglycerides 243 H Cholesterol LDL Cholesterol Direct HDL Cholesterol Urine pH Urine WBC (Auto) Urine Creatinine Urine Total Protein Fluid Total Protein Vancomycin Trough Rheumatoid Factor Complement C4 Miscellaneous Test Crossmatch 09/20/16 09/20/16 09/20/16 05:40 11:52 16:50 WBC RBC Hgb Hct MCV MCH MCHC RDW Plt Count Lymph % (Auto) [place] % (Auto) Lymph # [place] # Baso # Seg Neutrophils % Seg Neuts % (Manual) Lymphocytes % (Manual) Monocytes % (Manual) Eosinophils % (Manual) Basophils % (Manual) Nucleated RBC % Seg Neutrophils # Seg Neutrophils # Man Lymphocytes # (Manual) Monocytes # (Manual) Eosinophils # (Manual) Basophils # (Manual) PT INR Fibrinogen dRVVT Confirm Interp Factor V Activity POC ABG pH POC ABG pCO2 POC ABG pO2 ABG pO2 ABG HCO3 ABG Base Excess ABG Hemoglobin Oxyhemoglobin Sodium Potassium Chloride Carbon Dioxide BUN Creatinine Glucose POC Glucose 131 H 183 H 236 H Lactic Acid Calcium Phosphorus Magnesium Direct Bilirubin AST ALT Alkaline Phosphatase Lactate Dehydrogenase Troponin T C-Reactive Protein Total Protein Albumin Prealbumin Triglycerides Cholesterol LDL Cholesterol Direct HDL Cholesterol Urine pH Urine WBC (Auto) Urine Creatinine Urine Total Protein Fluid Total Protein Vancomycin Trough Rheumatoid Factor Complement C4 Miscellaneous Test Crossmatch 09/20/16 09/21/16 09/21/16 23:51 03:30 04:44 WBC RBC Hgb Hct MCV MCH MCHC RDW Plt Count Lymph % (Auto) [place] % (Auto) Lymph # [place] # Baso # Seg Neutrophils % Seg Neuts % (Manual) Lymphocytes % (Manual) Monocytes % (Manual) Eosinophils % (Manual) Basophils % (Manual) Nucleated RBC % Seg Neutrophils # Seg Neutrophils # Man Lymphocytes # (Manual) Monocytes # (Manual) Eosinophils # (Manual) Basophils # (Manual) PT INR Fibrinogen dRVVT Confirm Interp Factor V Activity POC ABG pH POC ABG pCO2 POC ABG pO2 ABG pO2 ABG HCO3 ABG Base Excess ABG Hemoglobin Oxyhemoglobin Sodium Potassium Chloride Carbon Dioxide BUN Creatinine Glucose POC Glucose 114 H 141 H Lactic Acid Calcium Phosphorus Magnesium 2.70 H Direct Bilirubin AST ALT Alkaline Phosphatase Lactate Dehydrogenase Troponin T C-Reactive Protein Total Protein Albumin Prealbumin Triglycerides Cholesterol LDL Cholesterol Direct HDL Cholesterol Urine pH Urine WBC (Auto) Urine Creatinine Urine Total Protein Fluid Total Protein Vancomycin Trough Rheumatoid Factor Complement C4 Miscellaneous Test Crossmatch 09/21/16 09/21/16 09/21/16 07:45 07:45 10:01 WBC 13.8 H RBC 2.94 L Hgb 7.5 L Hct 23.5 L MCV MCH 26 L MCHC RDW 21.2 H Plt Count Lymph % (Auto) 6.9 L [place] % (Auto) 9.4 H Lymph # 0.9 L [place] # 1.3 H Baso # Seg Neutrophils % 83.2 H Seg Neuts % (Manual) Lymphocytes % (Manual) Monocytes % (Manual) Eosinophils % (Manual) Basophils % (Manual) Nucleated RBC % Seg Neutrophils # 11.5 H Seg Neutrophils # Man Lymphocytes # (Manual) Monocytes # (Manual) Eosinophils # (Manual) Basophils # (Manual) PT INR Fibrinogen dRVVT Confirm Interp Factor V Activity POC ABG pH 7.308 L POC ABG pCO2 31.9 L POC ABG pO2 148 H ABG pO2 ABG HCO3 ABG Base Excess ABG Hemoglobin Oxyhemoglobin Sodium 147 H Potassium Chloride 114.2 H Carbon Dioxide 15 L BUN 120 H Creatinine 3.9 H Glucose 156 H POC Glucose Lactic Acid Calcium 8.2 L Phosphorus Magnesium Direct Bilirubin AST ALT Alkaline Phosphatase Lactate Dehydrogenase Troponin T C-Reactive Protein Total Protein Albumin Prealbumin Triglycerides Cholesterol LDL Cholesterol Direct HDL Cholesterol Urine pH Urine WBC (Auto) Urine Creatinine Urine Total Protein Fluid Total Protein Vancomycin Trough Rheumatoid Factor Complement C4 Miscellaneous Test Crossmatch 09/21/16 09/21/16 09/21/16 12:00 12:03 13:00 WBC RBC Hgb Hct MCV MCH MCHC RDW Plt Count Lymph % (Auto) [place] % (Auto) Lymph # [place] # Baso # Seg Neutrophils % Seg Neuts % (Manual) Lymphocytes % (Manual) Monocytes % (Manual) Eosinophils % (Manual) Basophils % (Manual) Nucleated RBC % Seg Neutrophils # Seg Neutrophils # Man Lymphocytes # (Manual) Monocytes # (Manual) Eosinophils # (Manual) Basophils # (Manual) PT INR Fibrinogen dRVVT Confirm Interp Factor V Activity POC ABG pH POC ABG pCO2 POC ABG pO2 ABG pO2 ABG HCO3 ABG Base Excess ABG Hemoglobin Oxyhemoglobin Sodium Potassium Chloride Carbon Dioxide BUN Creatinine Glucose POC Glucose 163 H Lactic Acid Calcium Phosphorus Magnesium Direct Bilirubin AST ALT Alkaline Phosphatase Lactate Dehydrogenase Troponin T C-Reactive Protein Total Protein Albumin Prealbumin Triglycerides Cholesterol LDL Cholesterol Direct HDL Cholesterol Urine pH Urine WBC (Auto) Urine Creatinine 54.8 H Urine Total Protein Fluid Total Protein Vancomycin Trough 2.3 L Rheumatoid Factor Complement C4 Miscellaneous Test Crossmatch 09/21/16 09/21/16 09/22/16 16:51 23:17 06:27 WBC RBC Hgb Hct MCV MCH MCHC RDW Plt Count Lymph % (Auto) [place] % (Auto) Lymph # [place] # Baso # Seg Neutrophils % Seg Neuts % (Manual) Lymphocytes % (Manual) Monocytes % (Manual) Eosinophils % (Manual) Basophils % (Manual) Nucleated RBC % Seg Neutrophils # Seg Neutrophils # Man Lymphocytes # (Manual) Monocytes # (Manual) Eosinophils # (Manual) Basophils # (Manual) PT INR Fibrinogen dRVVT Confirm Interp Factor V Activity POC ABG pH POC ABG pCO2 POC ABG pO2 ABG pO2 ABG HCO3 ABG Base Excess ABG Hemoglobin Oxyhemoglobin Sodium Potassium Chloride Carbon Dioxide BUN Creatinine Glucose POC Glucose 206 H 114 H 115 H Lactic Acid Calcium Phosphorus Magnesium Direct Bilirubin AST ALT Alkaline Phosphatase Lactate Dehydrogenase Troponin T C-Reactive Protein Total Protein Albumin Prealbumin Triglycerides Cholesterol LDL Cholesterol Direct HDL Cholesterol Urine pH Urine WBC (Auto) Urine Creatinine Urine Total Protein Fluid Total Protein Vancomycin Trough Rheumatoid Factor Complement C4 Miscellaneous Test Crossmatch 09/22/16 09/22/16 09/22/16 07:50 07:50 12:00 WBC 17.8 H RBC 3.04 L Hgb 8.0 L Hct 24.7 L MCV MCH 26 L MCHC RDW 21.6 H Plt Count Lymph % (Auto) [place] % (Auto) Lymph # [place] # Baso # Seg Neutrophils % Seg Neuts % (Manual) Lymphocytes % (Manual) Monocytes % (Manual) Eosinophils % (Manual) Basophils % (Manual) Nucleated RBC % Seg Neutrophils # Seg Neutrophils # Man Lymphocytes # (Manual) Monocytes # (Manual) Eosinophils # (Manual) Basophils # (Manual) PT INR Fibrinogen dRVVT Confirm Interp Factor V Activity POC ABG pH POC ABG pCO2 POC ABG pO2 ABG pO2 ABG HCO3 ABG Base Excess ABG Hemoglobin Oxyhemoglobin Sodium 150 H Potassium Chloride 118.2 H Carbon Dioxide 14 L BUN 111 H Creatinine 3.7 H Glucose 157 H POC Glucose 183 H Lactic Acid Calcium Phosphorus Magnesium Direct Bilirubin AST ALT Alkaline Phosphatase Lactate Dehydrogenase Troponin T C-Reactive Protein Total Protein Albumin Prealbumin Triglycerides Cholesterol LDL Cholesterol Direct HDL Cholesterol Urine pH Urine WBC (Auto) Urine Creatinine Urine Total Protein Fluid Total Protein Vancomycin Trough Rheumatoid Factor Complement C4 Miscellaneous Test Crossmatch 09/22/16 09/22/16 09/23/16 17:29 23:10 05:00 WBC 19.2 H RBC 3.13 L Hgb 8.0 L Hct 25.2 L MCV MCH 26 L MCHC RDW 22.1 H Plt Count Lymph % (Auto) [place] % (Auto) Lymph # [place] # Baso # Seg Neutrophils % Seg Neuts % (Manual) 92.0 H Lymphocytes % (Manual) 3.0 L Monocytes % (Manual) Eosinophils % (Manual) Basophils % (Manual) Nucleated RBC % Seg Neutrophils # Seg Neutrophils # Man 17.7 H Lymphocytes # (Manual) 0.6 L Monocytes # (Manual) Eosinophils # (Manual) Basophils # (Manual) PT INR Fibrinogen dRVVT Confirm Interp Factor V Activity POC ABG pH POC ABG pCO2 POC ABG pO2 ABG pO2 ABG HCO3 ABG Base Excess ABG Hemoglobin Oxyhemoglobin Sodium Potassium Chloride Carbon Dioxide BUN Creatinine Glucose POC Glucose 197 H 169 H Lactic Acid Calcium Phosphorus Magnesium Direct Bilirubin AST ALT Alkaline Phosphatase Lactate Dehydrogenase Troponin T C-Reactive Protein Total Protein Albumin Prealbumin Triglycerides Cholesterol LDL Cholesterol Direct HDL Cholesterol Urine pH Urine WBC (Auto) Urine Creatinine Urine Total Protein Fluid Total Protein Vancomycin Trough Rheumatoid Factor Complement C4 Miscellaneous Test Crossmatch 09/23/16 09/23/16 09/23/16 05:00 05:00 05:10 WBC RBC Hgb Hct MCV MCH MCHC RDW Plt Count Lymph % (Auto) [place] % (Auto) Lymph # [place] # Baso # Seg Neutrophils % Seg Neuts % (Manual) Lymphocytes % (Manual) Monocytes % (Manual) Eosinophils % (Manual) Basophils % (Manual) Nucleated RBC % Seg Neutrophils # Seg Neutrophils # Man Lymphocytes # (Manual) Monocytes # (Manual) Eosinophils # (Manual) Basophils # (Manual) PT INR Fibrinogen dRVVT Confirm Interp Factor V Activity POC ABG pH POC ABG pCO2 POC ABG pO2 ABG pO2 ABG HCO3 ABG Base Excess ABG Hemoglobin Oxyhemoglobin Sodium 147 H Potassium 3.2 L Chloride 115.7 H Carbon Dioxide 13 L BUN 111 H Creatinine 3.8 H Glucose 194 H POC Glucose 188 H Lactic Acid Calcium 7.3 L D Phosphorus Magnesium Direct Bilirubin AST ALT Alkaline Phosphatase Lactate Dehydrogenase Troponin T C-Reactive Protein 3.20 H Total Protein Albumin Prealbumin Triglycerides Cholesterol LDL Cholesterol Direct HDL Cholesterol Urine pH Urine WBC (Auto) Urine Creatinine Urine Total Protein Fluid Total Protein Vancomycin Trough Rheumatoid Factor Complement C4 Miscellaneous Test Crossmatch 09/23/16 09/23/16 09/23/16 11:37 12:29 18:01 WBC RBC Hgb Hct MCV MCH MCHC RDW Plt Count Lymph % (Auto) [place] % (Auto) Lymph # [place] # Baso # Seg Neutrophils % Seg Neuts % (Manual) Lymphocytes % (Manual) Monocytes % (Manual) Eosinophils % (Manual) Basophils % (Manual) Nucleated RBC % Seg Neutrophils # Seg Neutrophils # Man Lymphocytes # (Manual) Monocytes # (Manual) Eosinophils # (Manual) Basophils # (Manual) PT INR Fibrinogen dRVVT Confirm Interp Factor V Activity POC ABG pH POC ABG pCO2 18.9 L POC ABG pO2 143 H ABG pO2 ABG HCO3 ABG Base Excess ABG Hemoglobin Oxyhemoglobin Sodium Potassium Chloride Carbon Dioxide BUN Creatinine Glucose POC Glucose 153 H 108 H Lactic Acid Calcium Phosphorus Magnesium Direct Bilirubin AST ALT Alkaline Phosphatase Lactate Dehydrogenase Troponin T C-Reactive Protein Total Protein Albumin Prealbumin Triglycerides Cholesterol LDL Cholesterol Direct HDL Cholesterol Urine pH Urine WBC (Auto) Urine Creatinine Urine Total Protein Fluid Total Protein Vancomycin Trough Rheumatoid Factor Complement C4 Miscellaneous Test Crossmatch 09/23/16 09/23/16 09/24/16 21:19 23:43 05:16 WBC RBC Hgb Hct MCV MCH MCHC RDW Plt Count Lymph % (Auto) [place] % (Auto) Lymph # [place] # Baso # Seg Neutrophils % Seg Neuts % (Manual) Lymphocytes % (Manual) Monocytes % (Manual) Eosinophils % (Manual) Basophils % (Manual) Nucleated RBC % Seg Neutrophils # Seg Neutrophils # Man Lymphocytes # (Manual) Monocytes # (Manual) Eosinophils # (Manual) Basophils # (Manual) PT INR Fibrinogen dRVVT Confirm Interp Factor V Activity POC ABG pH POC ABG pCO2 17.3 L POC ABG pO2 112 H ABG pO2 ABG HCO3 ABG Base Excess ABG Hemoglobin Oxyhemoglobin Sodium Potassium Chloride Carbon Dioxide BUN Creatinine Glucose POC Glucose 143 H 164 H Lactic Acid Calcium Phosphorus Magnesium Direct Bilirubin AST ALT Alkaline Phosphatase Lactate Dehydrogenase Troponin T C-Reactive Protein Total Protein Albumin Prealbumin Triglycerides Cholesterol LDL Cholesterol Direct HDL Cholesterol Urine pH Urine WBC (Auto) Urine Creatinine Urine Total Protein Fluid Total Protein Vancomycin Trough Rheumatoid Factor Complement C4 Miscellaneous Test Crossmatch 09/24/16 09/24/16 09/24/16 05:21 11:58 17:06 WBC RBC Hgb Hct MCV MCH MCHC RDW Plt Count Lymph % (Auto) [place] % (Auto) Lymph # [place] # Baso # Seg Neutrophils % Seg Neuts % (Manual) Lymphocytes % (Manual) Monocytes % (Manual) Eosinophils % (Manual) Basophils % (Manual) Nucleated RBC % Seg Neutrophils # Seg Neutrophils # Man Lymphocytes # (Manual) Monocytes # (Manual) Eosinophils # (Manual) Basophils # (Manual) PT INR Fibrinogen dRVVT Confirm Interp Factor V Activity POC ABG pH POC ABG pCO2 POC ABG pO2 ABG pO2 ABG HCO3 ABG Base Excess ABG Hemoglobin Oxyhemoglobin Sodium Potassium Chloride Carbon Dioxide 10 L BUN 103 H Creatinine 4.3 H Glucose 163 H POC Glucose 173 H 167 H Lactic Acid Calcium 6.5 L Phosphorus Magnesium Direct Bilirubin AST ALT Alkaline Phosphatase Lactate Dehydrogenase Troponin T C-Reactive Protein Total Protein Albumin Prealbumin Triglycerides Cholesterol LDL Cholesterol Direct HDL Cholesterol Urine pH Urine WBC (Auto) Urine Creatinine Urine Total Protein Fluid Total Protein Vancomycin Trough Rheumatoid Factor Complement C4 Miscellaneous Test Crossmatch 09/24/16 09/24/16 09/24/16 20:15 21:02 23:48 WBC RBC Hgb Hct MCV MCH MCHC RDW Plt Count Lymph % (Auto) [place] % (Auto) Lymph # [place] # Baso # Seg Neutrophils % Seg Neuts % (Manual) Lymphocytes % (Manual) Monocytes % (Manual) Eosinophils % (Manual) Basophils % (Manual) Nucleated RBC % Seg Neutrophils # Seg Neutrophils # Man Lymphocytes # (Manual) Monocytes # (Manual) Eosinophils # (Manual) Basophils # (Manual) PT INR Fibrinogen dRVVT Confirm Interp Factor V Activity POC ABG pH 7.288 L POC ABG pCO2 30.2 L 21.5 L POC ABG pO2 32 L 39 L ABG pO2 ABG HCO3 ABG Base Excess ABG Hemoglobin Oxyhemoglobin Sodium Potassium Chloride Carbon Dioxide BUN Creatinine Glucose POC Glucose 109 H Lactic Acid Calcium Phosphorus Magnesium Direct Bilirubin AST ALT Alkaline Phosphatase Lactate Dehydrogenase Troponin T C-Reactive Protein Total Protein Albumin Prealbumin Triglycerides Cholesterol LDL Cholesterol Direct HDL Cholesterol Urine pH Urine WBC (Auto) Urine Creatinine Urine Total Protein Fluid Total Protein Vancomycin Trough Rheumatoid Factor Complement C4 Miscellaneous Test Crossmatch 09/25/16 09/25/16 09/25/16 04:20 04:20 04:20 WBC RBC 2.58 L Hgb 7.0 L Hct 21.0 L MCV MCH 27 L MCHC RDW 23.8 H Plt Count Lymph % (Auto) [place] % (Auto) Lymph # [place] # Baso # Seg Neutrophils % Seg Neuts % (Manual) Lymphocytes % (Manual) 12.0 L Monocytes % (Manual) Eosinophils % (Manual) 7.0 H Basophils % (Manual) 2.0 H Nucleated RBC % Seg Neutrophils # Seg Neutrophils # Man Lymphocytes # (Manual) 0.9 L Monocytes # (Manual) Eosinophils # (Manual) 0.5 H Basophils # (Manual) PT INR Fibrinogen dRVVT Confirm Interp Factor V Activity POC ABG pH POC ABG pCO2 POC ABG pO2 ABG pO2 ABG HCO3 ABG Base Excess ABG Hemoglobin Oxyhemoglobin Sodium Potassium Chloride Carbon Dioxide 15 L BUN 72 H Creatinine 3.8 H Glucose POC Glucose Lactic Acid Calcium 6.0 L Phosphorus 4.60 H Magnesium 1.60 L Direct Bilirubin AST ALT Alkaline Phosphatase Lactate Dehydrogenase Troponin T C-Reactive Protein Total Protein Albumin Prealbumin Triglycerides Cholesterol LDL Cholesterol Direct HDL Cholesterol Urine pH Urine WBC (Auto) Urine Creatinine Urine Total Protein Fluid Total Protein Vancomycin Trough Rheumatoid Factor Complement C4 Miscellaneous Test Crossmatch 09/25/16 09/25/16 09/25/16 04:57 08:02 10:30 WBC RBC Hgb Hct MCV MCH MCHC RDW Plt Count Lymph % (Auto) [place] % (Auto) Lymph # [place] # Baso # Seg Neutrophils % Seg Neuts % (Manual) Lymphocytes % (Manual) Monocytes % (Manual) Eosinophils % (Manual) Basophils % (Manual) Nucleated RBC % Seg Neutrophils # Seg Neutrophils # Man Lymphocytes # (Manual) Monocytes # (Manual) Eosinophils # (Manual) Basophils # (Manual) PT INR Fibrinogen dRVVT Confirm Interp Factor V Activity POC ABG pH POC ABG pCO2 24.7 L POC ABG pO2 152 H ABG pO2 ABG HCO3 ABG Base Excess ABG Hemoglobin Oxyhemoglobin Sodium Potassium Chloride Carbon Dioxide BUN Creatinine Glucose POC Glucose 113 H Lactic Acid Calcium Phosphorus Magnesium Direct Bilirubin AST ALT Alkaline Phosphatase Lactate Dehydrogenase Troponin T C-Reactive Protein Total Protein Albumin Prealbumin Triglycerides Cholesterol LDL Cholesterol Direct HDL Cholesterol Urine pH Urine WBC (Auto) Urine Creatinine Urine Total Protein Fluid Total Protein Vancomycin Trough Rheumatoid Factor Complement C4 Miscellaneous Test Crossmatch See Detail 09/25/16 09/25/16 09/25/16 12:05 17:44 23:47 WBC RBC Hgb Hct MCV MCH MCHC RDW Plt Count Lymph % (Auto) [place] % (Auto) Lymph # [place] # Baso # Seg Neutrophils % Seg Neuts % (Manual) Lymphocytes % (Manual) Monocytes % (Manual) Eosinophils % (Manual) Basophils % (Manual) Nucleated RBC % Seg Neutrophils # Seg Neutrophils # Man Lymphocytes # (Manual) Monocytes # (Manual) Eosinophils # (Manual) Basophils # (Manual) PT INR Fibrinogen dRVVT Confirm Interp Factor V Activity POC ABG pH POC ABG pCO2 POC ABG pO2 ABG pO2 ABG HCO3 ABG Base Excess ABG Hemoglobin Oxyhemoglobin Sodium Potassium Chloride Carbon Dioxide BUN Creatinine Glucose POC Glucose 117 H 119 H 150 H Lactic Acid Calcium Phosphorus Magnesium Direct Bilirubin AST ALT Alkaline Phosphatase Lactate Dehydrogenase Troponin T C-Reactive Protein Total Protein Albumin Prealbumin Triglycerides Cholesterol LDL Cholesterol Direct HDL Cholesterol Urine pH Urine WBC (Auto) Urine Creatinine Urine Total Protein Fluid Total Protein Vancomycin Trough Rheumatoid Factor Complement C4 Miscellaneous Test Crossmatch 09/26/16 09/26/16 09/26/16 04:25 04:25 04:25 WBC RBC 2.65 L Hgb 7.4 L Hct 21.6 L MCV MCH MCHC RDW 22.5 H Plt Count Lymph % (Auto) [place] % (Auto) Lymph # [place] # Baso # Seg Neutrophils % Seg Neuts % (Manual) Lymphocytes % (Manual) 6.0 L Monocytes % (Manual) Eosinophils % (Manual) 11.0 H Basophils % (Manual) Nucleated RBC % Seg Neutrophils # Seg Neutrophils # Man Lymphocytes # (Manual) 0.4 L Monocytes # (Manual) Eosinophils # (Manual) 0.6 H Basophils # (Manual) PT INR Fibrinogen dRVVT Confirm Interp Factor V Activity POC ABG pH POC ABG pCO2 POC ABG pO2 ABG pO2 ABG HCO3 ABG Base Excess ABG Hemoglobin Oxyhemoglobin Sodium Potassium Chloride 97.0 L Carbon Dioxide 19 L BUN 43 H Creatinine 2.6 H Glucose 130 H POC Glucose Lactic Acid 4.40 H* Calcium 6.7 L Phosphorus Magnesium Direct Bilirubin AST ALT Alkaline Phosphatase Lactate Dehydrogenase Troponin T C-Reactive Protein Total Protein Albumin Prealbumin Triglycerides Cholesterol LDL Cholesterol Direct HDL Cholesterol Urine pH Urine WBC (Auto) Urine Creatinine Urine Total Protein Fluid Total Protein Vancomycin Trough Rheumatoid Factor Complement C4 Miscellaneous Test Crossmatch 09/26/16 09/26/16 09/26/16 05:20 11:44 12:12 WBC RBC Hgb Hct MCV MCH MCHC RDW Plt Count Lymph % (Auto) [place] % (Auto) Lymph # [place] # Baso # Seg Neutrophils % Seg Neuts % (Manual) Lymphocytes % (Manual) Monocytes % (Manual) Eosinophils % (Manual) Basophils % (Manual) Nucleated RBC % Seg Neutrophils # Seg Neutrophils # Man Lymphocytes # (Manual) Monocytes # (Manual) Eosinophils # (Manual) Basophils # (Manual) PT INR Fibrinogen dRVVT Confirm Interp Factor V Activity POC ABG pH POC ABG pCO2 27.0 L POC ABG pO2 69 L ABG pO2 ABG HCO3 ABG Base Excess ABG Hemoglobin Oxyhemoglobin Sodium Potassium Chloride Carbon Dioxide BUN Creatinine Glucose POC Glucose 121 H 128 H Lactic Acid Calcium Phosphorus Magnesium Direct Bilirubin AST ALT Alkaline Phosphatase Lactate Dehydrogenase Troponin T C-Reactive Protein Total Protein Albumin Prealbumin Triglycerides Cholesterol LDL Cholesterol Direct HDL Cholesterol Urine pH Urine WBC (Auto) Urine Creatinine Urine Total Protein Fluid Total Protein Vancomycin Trough Rheumatoid Factor Complement C4 Miscellaneous Test Crossmatch 09/26/16 09/26/16 09/27/16 18:31 23:40 08:20 WBC RBC Hgb Hct MCV MCH MCHC RDW Plt Count Lymph % (Auto) [place] % (Auto) Lymph # [place] # Baso # Seg Neutrophils % Seg Neuts % (Manual) Lymphocytes % (Manual) Monocytes % (Manual) Eosinophils % (Manual) Basophils % (Manual) Nucleated RBC % Seg Neutrophils # Seg Neutrophils # Man Lymphocytes # (Manual) Monocytes # (Manual) Eosinophils # (Manual) Basophils # (Manual) PT INR Fibrinogen dRVVT Confirm Interp Factor V Activity POC ABG pH POC ABG pCO2 POC ABG pO2 ABG pO2 ABG HCO3 ABG Base Excess ABG Hemoglobin Oxyhemoglobin Sodium Potassium Chloride Carbon Dioxide BUN Creatinine Glucose POC Glucose 120 H 133 H Lactic Acid 4.10 H* Calcium Phosphorus Magnesium Direct Bilirubin AST ALT Alkaline Phosphatase Lactate Dehydrogenase Troponin T C-Reactive Protein Total Protein Albumin Prealbumin Triglycerides Cholesterol LDL Cholesterol Direct HDL Cholesterol Urine pH Urine WBC (Auto) Urine Creatinine Urine Total Protein Fluid Total Protein Vancomycin Trough Rheumatoid Factor Complement C4 Miscellaneous Test Crossmatch 09/27/16 09/27/16 09/27/16 11:23 15:00 18:15 WBC RBC Hgb Hct MCV MCH MCHC RDW Plt Count Lymph % (Auto) [place] % (Auto) Lymph # [place] # Baso # Seg Neutrophils % Seg Neuts % (Manual) Lymphocytes % (Manual) Monocytes % (Manual) Eosinophils % (Manual) Basophils % (Manual) Nucleated RBC % Seg Neutrophils # Seg Neutrophils # Man Lymphocytes # (Manual) Monocytes # (Manual) Eosinophils # (Manual) Basophils # (Manual) PT INR Fibrinogen dRVVT Confirm Interp Factor V Activity POC ABG pH 7.459 H POC ABG pCO2 27.1 L POC ABG pO2 140 H ABG pO2 ABG HCO3 ABG Base Excess ABG Hemoglobin Oxyhemoglobin Sodium Potassium Chloride Carbon Dioxide BUN Creatinine Glucose POC Glucose 114 H 127 H Lactic Acid Calcium Phosphorus Magnesium Direct Bilirubin AST ALT Alkaline Phosphatase Lactate Dehydrogenase Troponin T C-Reactive Protein Total Protein Albumin Prealbumin Triglycerides Cholesterol LDL Cholesterol Direct HDL Cholesterol Urine pH Urine WBC (Auto) Urine Creatinine Urine Total Protein Fluid Total Protein Vancomycin Trough Rheumatoid Factor Complement C4 Miscellaneous Test Crossmatch 09/27/16 09/27/16 09/28/16 Unknown Unknown 03:45 WBC RBC 2.49 L Hgb 6.8 L Hct 20.7 L MCV MCH 27 L MCHC RDW 22.1 H Plt Count Lymph % (Auto) [place] % (Auto) Lymph # [place] # Baso # Seg Neutrophils % Seg Neuts % (Manual) 32.0 L Lymphocytes % (Manual) 12.0 L Monocytes % (Manual) 11.0 H Eosinophils % (Manual) 10.0 H Basophils % (Manual) Nucleated RBC % Seg Neutrophils # Seg Neutrophils # Man Lymphocytes # (Manual) 1.0 L Monocytes # (Manual) 0.9 H Eosinophils # (Manual) 0.8 H Basophils # (Manual) PT INR Fibrinogen dRVVT Confirm Interp Factor V Activity POC ABG pH POC ABG pCO2 POC ABG pO2 ABG pO2 ABG HCO3 ABG Base Excess ABG Hemoglobin Oxyhemoglobin Sodium 135 L 135 L Potassium 3.5 L Chloride 93.6 L 94.4 L Carbon Dioxide 17 L 21 L BUN 45 H 28 H Creatinine 3.3 H 2.5 H Glucose 106 H POC Glucose Lactic Acid Calcium 7.3 L 7.1 L Phosphorus Magnesium Direct Bilirubin AST ALT Alkaline Phosphatase Lactate Dehydrogenase Troponin T C-Reactive Protein Total Protein Albumin Prealbumin Triglycerides Cholesterol LDL Cholesterol Direct HDL Cholesterol Urine pH Urine WBC (Auto) Urine Creatinine Urine Total Protein Fluid Total Protein Vancomycin Trough Rheumatoid Factor Complement C4 Miscellaneous Test Crossmatch 09/28/16 09/28/16 09/28/16 03:45 07:25 11:58 WBC 13.3 H RBC 3.01 L Hgb 8.4 L Hct 25.0 L MCV MCH MCHC RDW 20.5 H Plt Count 128 L Lymph % (Auto) [place] % (Auto) Lymph # [place] # Baso # Seg Neutrophils % Seg Neuts % (Manual) Lymphocytes % (Manual) 7.0 L Monocytes % (Manual) Eosinophils % (Manual) 6.0 H Basophils % (Manual) Nucleated RBC % Seg Neutrophils # Seg Neutrophils # Man Lymphocytes # (Manual) 0.9 L Monocytes # (Manual) Eosinophils # (Manual) 0.8 H Basophils # (Manual) PT INR Fibrinogen dRVVT Confirm Interp Factor V Activity POC ABG pH POC ABG pCO2 POC ABG pO2 ABG pO2 ABG HCO3 ABG Base Excess ABG Hemoglobin Oxyhemoglobin Sodium Potassium Chloride Carbon Dioxide BUN Creatinine Glucose POC Glucose 121 H Lactic Acid 4.50 H* Calcium Phosphorus Magnesium Direct Bilirubin AST ALT Alkaline Phosphatase Lactate Dehydrogenase Troponin T C-Reactive Protein Total Protein Albumin Prealbumin Triglycerides Cholesterol LDL Cholesterol Direct HDL Cholesterol Urine pH Urine WBC (Auto) Urine Creatinine Urine Total Protein Fluid Total Protein Vancomycin Trough Rheumatoid Factor Complement C4 Miscellaneous Test Crossmatch 09/29/16 09/29/16 09/29/16 06:45 06:45 06:45 WBC 14.9 H RBC 2.74 L Hgb 7.6 L Hct 23.2 L MCV MCH MCHC RDW 20.5 H Plt Count 81 L Lymph % (Auto) [place] % (Auto) Lymph # [place] # Baso # Seg Neutrophils % Seg Neuts % (Manual) 81.0 H Lymphocytes % (Manual) 4.0 L Monocytes % (Manual) Eosinophils % (Manual) Basophils % (Manual) Nucleated RBC % Seg Neutrophils # Seg Neutrophils # Man 12.1 H Lymphocytes # (Manual) 0.6 L Monocytes # (Manual) Eosinophils # (Manual) Basophils # (Manual) PT INR Fibrinogen dRVVT Confirm Interp Factor V Activity POC ABG pH POC ABG pCO2 POC ABG pO2 ABG pO2 ABG HCO3 ABG Base Excess ABG Hemoglobin Oxyhemoglobin Sodium 133 L Potassium 3.4 L Chloride 92.5 L Carbon Dioxide 21 L BUN 33 H Creatinine 3.0 H Glucose POC Glucose Lactic Acid Calcium 6.6 L Phosphorus Magnesium 1.40 L Direct Bilirubin 0.9 H AST ALT Alkaline Phosphatase Lactate Dehydrogenase Troponin T C-Reactive Protein Total Protein 4.3 L Albumin 1.3 L Prealbumin Triglycerides Cholesterol LDL Cholesterol Direct HDL Cholesterol Urine pH Urine WBC (Auto) Urine Creatinine Urine Total Protein Fluid Total Protein Vancomycin Trough Rheumatoid Factor Complement C4 Miscellaneous Test Crossmatch 09/29/16 09/29/16 09/30/16 17:52 20:12 00:07 WBC RBC Hgb Hct MCV MCH MCHC RDW Plt Count Lymph % (Auto) [place] % (Auto) Lymph # [place] # Baso # Seg Neutrophils % Seg Neuts % (Manual) Lymphocytes % (Manual) Monocytes % (Manual) Eosinophils % (Manual) Basophils % (Manual) Nucleated RBC % Seg Neutrophils # Seg Neutrophils # Man Lymphocytes # (Manual) Monocytes # (Manual) Eosinophils # (Manual) Basophils # (Manual) PT INR Fibrinogen dRVVT Confirm Interp Factor V Activity POC ABG pH POC ABG pCO2 POC ABG pO2 ABG pO2 ABG HCO3 ABG Base Excess ABG Hemoglobin Oxyhemoglobin Sodium Potassium Chloride Carbon Dioxide BUN Creatinine Glucose POC Glucose 50 L 51 L Lactic Acid Calcium Phosphorus Magnesium Direct Bilirubin AST ALT Alkaline Phosphatase Lactate Dehydrogenase Troponin T 0.204 H* C-Reactive Protein Total Protein Albumin Prealbumin Triglycerides Cholesterol 31 L LDL Cholesterol Direct 4 L HDL Cholesterol 3 L Urine pH Urine WBC (Auto) Urine Creatinine Urine Total Protein Fluid Total Protein Vancomycin Trough Rheumatoid Factor Complement C4 Miscellaneous Test Crossmatch 09/30/16 09/30/16 09/30/16 01:30 05:15 06:10 WBC RBC Hgb Hct MCV MCH MCHC RDW Plt Count Lymph % (Auto) [place] % (Auto) Lymph # [place] # Baso # Seg Neutrophils % Seg Neuts % (Manual) Lymphocytes % (Manual) Monocytes % (Manual) Eosinophils % (Manual) Basophils % (Manual) Nucleated RBC % Seg Neutrophils # Seg Neutrophils # Man Lymphocytes # (Manual) Monocytes # (Manual) Eosinophils # (Manual) Basophils # (Manual) PT INR Fibrinogen dRVVT Confirm Interp Factor V Activity POC ABG pH POC ABG pCO2 POC ABG pO2 ABG pO2 ABG HCO3 ABG Base Excess ABG Hemoglobin Oxyhemoglobin Sodium 133 L Potassium 3.2 L Chloride 93.2 L Carbon Dioxide 19 L BUN 36 H Creatinine 3.2 H Glucose 104 H POC Glucose 167 H 146 H Lactic Acid Calcium 6.4 L Phosphorus Magnesium 1.60 L Direct Bilirubin AST ALT Alkaline Phosphatase Lactate Dehydrogenase Troponin T C-Reactive Protein Total Protein Albumin Prealbumin Triglycerides Cholesterol LDL Cholesterol Direct HDL Cholesterol Urine pH Urine WBC (Auto) Urine Creatinine Urine Total Protein Fluid Total Protein Vancomycin Trough Rheumatoid Factor Complement C4 Miscellaneous Test Crossmatch 09/30/16 09/30/16 09/30/16 11:26 13:39 18:38 WBC RBC Hgb Hct MCV MCH MCHC RDW Plt Count Lymph % (Auto) [place] % (Auto) Lymph # [place] # Baso # Seg Neutrophils % Seg Neuts % (Manual) Lymphocytes % (Manual) Monocytes % (Manual) Eosinophils % (Manual) Basophils % (Manual) Nucleated RBC % Seg Neutrophils # Seg Neutrophils # Man Lymphocytes # (Manual) Monocytes # (Manual) Eosinophils # (Manual) Basophils # (Manual) PT INR Fibrinogen dRVVT Confirm Interp Factor V Activity POC ABG pH 7.479 H POC ABG pCO2 29.8 L POC ABG pO2 117 H ABG pO2 ABG HCO3 ABG Base Excess ABG Hemoglobin Oxyhemoglobin Sodium Potassium Chloride Carbon Dioxide BUN Creatinine Glucose POC Glucose 140 H 122 H Lactic Acid Calcium Phosphorus Magnesium Direct Bilirubin AST ALT Alkaline Phosphatase Lactate Dehydrogenase Troponin T C-Reactive Protein Total Protein Albumin Prealbumin Triglycerides Cholesterol LDL Cholesterol Direct HDL Cholesterol Urine pH Urine WBC (Auto) Urine Creatinine Urine Total Protein Fluid Total Protein Vancomycin Trough Rheumatoid Factor Complement C4 Miscellaneous Test Crossmatch 10/01/16 10/01/16 10/01/16 06:00 06:00 12:37 WBC 12.6 H RBC 2.75 L Hgb 7.3 L Hct 23.3 L MCV MCH 27 L MCHC RDW 20.6 H Plt Count 72 L Lymph % (Auto) [place] % (Auto) Lymph # [place] # Baso # Seg Neutrophils % Seg Neuts % (Manual) 31.0 L Lymphocytes % (Manual) 8.0 L Monocytes % (Manual) Eosinophils % (Manual) Basophils % (Manual) Nucleated RBC % 3.0 H Seg Neutrophils # Seg Neutrophils # Man Lymphocytes # (Manual) 1.0 L Monocytes # (Manual) Eosinophils # (Manual) Basophils # (Manual) PT INR Fibrinogen dRVVT Confirm Interp Factor V Activity POC ABG pH POC ABG pCO2 POC ABG pO2 ABG pO2 ABG HCO3 ABG Base Excess ABG Hemoglobin Oxyhemoglobin Sodium 127 L Potassium Chloride 86.8 L Carbon Dioxide 20 L BUN 42 H Creatinine 3.5 H Glucose POC Glucose 65 L Lactic Acid Calcium 7.0 L Phosphorus Magnesium Direct Bilirubin AST ALT Alkaline Phosphatase Lactate Dehydrogenase Troponin T C-Reactive Protein Total Protein Albumin Prealbumin Triglycerides Cholesterol LDL Cholesterol Direct HDL Cholesterol Urine pH Urine WBC (Auto) Urine Creatinine Urine Total Protein Fluid Total Protein Vancomycin Trough Rheumatoid Factor Complement C4 Miscellaneous Test Crossmatch 10/01/16 10/01/16 10/02/16 17:39 23:32 00:59 WBC RBC Hgb Hct MCV MCH MCHC RDW Plt Count Lymph % (Auto) [place] % (Auto) Lymph # [place] # Baso # Seg Neutrophils % Seg Neuts % (Manual) Lymphocytes % (Manual) Monocytes % (Manual) Eosinophils % (Manual) Basophils % (Manual) Nucleated RBC % Seg Neutrophils # Seg Neutrophils # Man Lymphocytes # (Manual) Monocytes # (Manual) Eosinophils # (Manual) Basophils # (Manual) PT INR Fibrinogen dRVVT Confirm Interp Factor V Activity POC ABG pH POC ABG pCO2 POC ABG pO2 ABG pO2 ABG HCO3 ABG Base Excess ABG Hemoglobin Oxyhemoglobin Sodium Potassium Chloride Carbon Dioxide BUN Creatinine Glucose POC Glucose 107 H 52 L 145 H Lactic Acid Calcium Phosphorus Magnesium Direct Bilirubin AST ALT Alkaline Phosphatase Lactate Dehydrogenase Troponin T C-Reactive Protein Total Protein Albumin Prealbumin Triglycerides Cholesterol LDL Cholesterol Direct HDL Cholesterol Urine pH Urine WBC (Auto) Urine Creatinine Urine Total Protein Fluid Total Protein Vancomycin Trough Rheumatoid Factor Complement C4 Miscellaneous Test Crossmatch 10/02/16 10/02/16 10/02/16 10:30 10:50 10:50 WBC 14.7 H RBC 2.76 L Hgb 7.4 L Hct 23.6 L MCV MCH 27 L MCHC RDW 20.2 H Plt Count 79 L Lymph % (Auto) [place] % (Auto) Lymph # [place] # Baso # Seg Neutrophils % Seg Neuts % (Manual) 86.0 H Lymphocytes % (Manual) 6.0 L Monocytes % (Manual) Eosinophils % (Manual) Basophils % (Manual) Nucleated RBC % Seg Neutrophils # Seg Neutrophils # Man 12.6 H Lymphocytes # (Manual) 0.9 L Monocytes # (Manual) Eosinophils # (Manual) Basophils # (Manual) PT INR Fibrinogen dRVVT Confirm Interp Factor V Activity POC ABG pH 7.486 H POC ABG pCO2 30.1 L POC ABG pO2 108 H ABG pO2 ABG HCO3 ABG Base Excess ABG Hemoglobin Oxyhemoglobin Sodium 131 L Potassium 3.4 L Chloride 89.9 L Carbon Dioxide BUN 26 H Creatinine 2.6 H Glucose POC Glucose Lactic Acid Calcium 7.0 L Phosphorus Magnesium Direct Bilirubin AST ALT Alkaline Phosphatase Lactate Dehydrogenase Troponin T C-Reactive Protein Total Protein Albumin Prealbumin Triglycerides Cholesterol LDL Cholesterol Direct HDL Cholesterol Urine pH Urine WBC (Auto) Urine Creatinine Urine Total Protein Fluid Total Protein Vancomycin Trough Rheumatoid Factor Complement C4 Miscellaneous Test Crossmatch 10/02/16 10/03/16 10/03/16 23:45 00:45 05:10 WBC 12.9 H RBC 2.77 L Hgb 7.6 L Hct 23.7 L MCV MCH 27 L MCHC RDW 19.7 H Plt Count 89 L Lymph % (Auto) [place] % (Auto) Lymph # [place] # Baso # Seg Neutrophils % Seg Neuts % (Manual) Lymphocytes % (Manual) 8.0 L Monocytes % (Manual) Eosinophils % (Manual) Basophils % (Manual) Nucleated RBC % Seg Neutrophils # 11.9 H Seg Neutrophils # Man Lymphocytes # (Manual) 1.0 L Monocytes # (Manual) Eosinophils # (Manual) Basophils # (Manual) PT INR Fibrinogen dRVVT Confirm Interp Factor V Activity POC ABG pH POC ABG pCO2 POC ABG pO2 ABG pO2 ABG HCO3 ABG Base Excess ABG Hemoglobin Oxyhemoglobin Sodium Potassium Chloride Carbon Dioxide BUN Creatinine Glucose POC Glucose 55 L 199 H Lactic Acid Calcium Phosphorus Magnesium Direct Bilirubin AST ALT Alkaline Phosphatase Lactate Dehydrogenase Troponin T C-Reactive Protein Total Protein Albumin Prealbumin Triglycerides Cholesterol LDL Cholesterol Direct HDL Cholesterol Urine pH Urine WBC (Auto) Urine Creatinine Urine Total Protein Fluid Total Protein Vancomycin Trough Rheumatoid Factor Complement C4 Miscellaneous Test Crossmatch 10/03/16 10/03/16 10/03/16 05:10 12:14 13:18 WBC RBC Hgb Hct MCV MCH MCHC RDW Plt Count Lymph % (Auto) [place] % (Auto) Lymph # [place] # Baso # Seg Neutrophils % Seg Neuts % (Manual) Lymphocytes % (Manual) Monocytes % (Manual) Eosinophils % (Manual) Basophils % (Manual) Nucleated RBC % Seg Neutrophils # Seg Neutrophils # Man Lymphocytes # (Manual) Monocytes # (Manual) Eosinophils # (Manual) Basophils # (Manual) PT INR Fibrinogen dRVVT Confirm Interp Factor V Activity POC ABG pH POC ABG pCO2 POC ABG pO2 ABG pO2 ABG HCO3 ABG Base Excess ABG Hemoglobin Oxyhemoglobin Sodium 129 L Potassium 3.3 L Chloride 88.8 L Carbon Dioxide 20 L BUN 29 H Creatinine 2.8 H Glucose POC Glucose 68 L 127 H Lactic Acid Calcium 7.2 L Phosphorus Magnesium Direct Bilirubin AST ALT Alkaline Phosphatase Lactate Dehydrogenase Troponin T C-Reactive Protein Total Protein Albumin Prealbumin Triglycerides Cholesterol LDL Cholesterol Direct HDL Cholesterol Urine pH Urine WBC (Auto) Urine Creatinine Urine Total Protein Fluid Total Protein Vancomycin Trough Rheumatoid Factor Complement C4 Miscellaneous Test Crossmatch 10/03/16 10/03/16 10/03/16 14:42 18:21 19:09 WBC RBC Hgb Hct MCV MCH MCHC RDW Plt Count Lymph % (Auto) [place] % (Auto) Lymph # [place] # Baso # Seg Neutrophils % Seg Neuts % (Manual) Lymphocytes % (Manual) Monocytes % (Manual) Eosinophils % (Manual) Basophils % (Manual) Nucleated RBC % Seg Neutrophils # Seg Neutrophils # Man Lymphocytes # (Manual) Monocytes # (Manual) Eosinophils # (Manual) Basophils # (Manual) PT INR Fibrinogen dRVVT Confirm Interp Factor V Activity POC ABG pH 7.499 H POC ABG pCO2 28.4 L POC ABG pO2 44 L ABG pO2 ABG HCO3 ABG Base Excess ABG Hemoglobin Oxyhemoglobin Sodium Potassium Chloride Carbon Dioxide BUN Creatinine Glucose POC Glucose 64 L 205 H Lactic Acid Calcium Phosphorus Magnesium Direct Bilirubin AST ALT Alkaline Phosphatase Lactate Dehydrogenase Troponin T C-Reactive Protein Total Protein Albumin Prealbumin Triglycerides Cholesterol LDL Cholesterol Direct HDL Cholesterol Urine pH Urine WBC (Auto) Urine Creatinine Urine Total Protein Fluid Total Protein Vancomycin Trough Rheumatoid Factor Complement C4 Miscellaneous Test Crossmatch 10/03/16 10/04/16 10/04/16 23:33 04:18 06:30 WBC RBC 2.54 L Hgb 7.1 L Hct 21.7 L MCV MCH MCHC RDW 19.5 H Plt Count 76 L Lymph % (Auto) [place] % (Auto) Lymph # [place] # Baso # Seg Neutrophils % Seg Neuts % (Manual) 88.0 H Lymphocytes % (Manual) 6.0 L Monocytes % (Manual) Eosinophils % (Manual) Basophils % (Manual) Nucleated RBC % Seg Neutrophils # Seg Neutrophils # Man 8.8 H Lymphocytes # (Manual) 0.6 L Monocytes # (Manual) Eosinophils # (Manual) Basophils # (Manual) PT INR Fibrinogen dRVVT Confirm Interp Factor V Activity POC ABG pH 7.461 H POC ABG pCO2 33.6 L POC ABG pO2 211 H ABG pO2 ABG HCO3 ABG Base Excess ABG Hemoglobin Oxyhemoglobin Sodium Potassium Chloride Carbon Dioxide BUN Creatinine Glucose POC Glucose 136 H Lactic Acid Calcium Phosphorus Magnesium Direct Bilirubin AST ALT Alkaline Phosphatase Lactate Dehydrogenase Troponin T C-Reactive Protein Total Protein Albumin Prealbumin Triglycerides Cholesterol LDL Cholesterol Direct HDL Cholesterol Urine pH Urine WBC (Auto) Urine Creatinine Urine Total Protein Fluid Total Protein Vancomycin Trough Rheumatoid Factor Complement C4 Miscellaneous Test Crossmatch 10/04/16 10/04/16 10/04/16 06:30 11:45 17:54 WBC RBC Hgb Hct MCV MCH MCHC RDW Plt Count Lymph % (Auto) [place] % (Auto) Lymph # [place] # Baso # Seg Neutrophils % Seg Neuts % (Manual) Lymphocytes % (Manual) Monocytes % (Manual) Eosinophils % (Manual) Basophils % (Manual) Nucleated RBC % Seg Neutrophils # Seg Neutrophils # Man Lymphocytes # (Manual) Monocytes # (Manual) Eosinophils # (Manual) Basophils # (Manual) PT INR Fibrinogen dRVVT Confirm Interp Factor V Activity POC ABG pH POC ABG pCO2 POC ABG pO2 ABG pO2 ABG HCO3 ABG Base Excess ABG Hemoglobin Oxyhemoglobin Sodium 128 L Potassium Chloride 87.4 L Carbon Dioxide 20 L BUN 34 H Creatinine 2.9 H Glucose 127 H POC Glucose 158 H 160 H Lactic Acid Calcium 7.4 L Phosphorus Magnesium Direct Bilirubin AST ALT Alkaline Phosphatase Lactate Dehydrogenase Troponin T C-Reactive Protein Total Protein Albumin Prealbumin Triglycerides Cholesterol LDL Cholesterol Direct HDL Cholesterol Urine pH Urine WBC (Auto) Urine Creatinine Urine Total Protein Fluid Total Protein Vancomycin Trough Rheumatoid Factor Complement C4 Miscellaneous Test Crossmatch 10/04/16 10/05/16 10/05/16 23:25 04:30 05:00 WBC RBC 2.64 L Hgb 7.5 L Hct 22.6 L MCV MCH MCHC RDW 19.3 H Plt Count 80 L Lymph % (Auto) [place] % (Auto) Lymph # [place] # Baso # Seg Neutrophils % Seg Neuts % (Manual) Lymphocytes % (Manual) 12.0 L Monocytes % (Manual) Eosinophils % (Manual) Basophils % (Manual) Nucleated RBC % Seg Neutrophils # Seg Neutrophils # Man Lymphocytes # (Manual) Monocytes # (Manual) Eosinophils # (Manual) Basophils # (Manual) PT INR Fibrinogen dRVVT Confirm Interp Factor V Activity POC ABG pH 7.475 H POC ABG pCO2 33.3 L POC ABG pO2 140 H ABG pO2 ABG HCO3 ABG Base Excess ABG Hemoglobin Oxyhemoglobin Sodium Potassium Chloride Carbon Dioxide BUN Creatinine Glucose POC Glucose 141 H Lactic Acid Calcium Phosphorus Magnesium Direct Bilirubin AST ALT Alkaline Phosphatase Lactate Dehydrogenase Troponin T C-Reactive Protein Total Protein Albumin Prealbumin Triglycerides Cholesterol LDL Cholesterol Direct HDL Cholesterol Urine pH Urine WBC (Auto) Urine Creatinine Urine Total Protein Fluid Total Protein Vancomycin Trough Rheumatoid Factor Complement C4 Miscellaneous Test Crossmatch 10/05/16 10/05/16 10/05/16 05:00 05:09 12:58 WBC RBC Hgb Hct MCV MCH MCHC RDW Plt Count Lymph % (Auto) [place] % (Auto) Lymph # [place] # Baso # Seg Neutrophils % Seg Neuts % (Manual) Lymphocytes % (Manual) Monocytes % (Manual) Eosinophils % (Manual) Basophils % (Manual) Nucleated RBC % Seg Neutrophils # Seg Neutrophils # Man Lymphocytes # (Manual) Monocytes # (Manual) Eosinophils # (Manual) Basophils # (Manual) PT INR Fibrinogen dRVVT Confirm Interp Factor V Activity POC ABG pH POC ABG pCO2 POC ABG pO2 ABG pO2 ABG HCO3 ABG Base Excess ABG Hemoglobin Oxyhemoglobin Sodium 131 L Potassium Chloride 94.0 L Carbon Dioxide 20 L BUN 22 H Creatinine 2.0 H Glucose 123 H POC Glucose 166 H 179 H Lactic Acid Calcium 7.7 L Phosphorus 2.20 L D Magnesium Direct Bilirubin AST ALT Alkaline Phosphatase Lactate Dehydrogenase Troponin T C-Reactive Protein Total Protein Albumin Prealbumin Triglycerides Cholesterol LDL Cholesterol Direct HDL Cholesterol Urine pH Urine WBC (Auto) Urine Creatinine Urine Total Protein Fluid Total Protein Vancomycin Trough Rheumatoid Factor Complement C4 Miscellaneous Test Crossmatch 10/05/16 10/05/16 10/05/16 15:50 18:53 23:12 WBC RBC Hgb Hct MCV MCH MCHC RDW Plt Count Lymph % (Auto) [place] % (Auto) Lymph # [place] # Baso # Seg Neutrophils % Seg Neuts % (Manual) Lymphocytes % (Manual) Monocytes % (Manual) Eosinophils % (Manual) Basophils % (Manual) Nucleated RBC % Seg Neutrophils # Seg Neutrophils # Man Lymphocytes # (Manual) Monocytes # (Manual) Eosinophils # (Manual) Basophils # (Manual) PT INR Fibrinogen dRVVT Confirm Interp Factor V Activity POC ABG pH POC ABG pCO2 POC ABG pO2 ABG pO2 ABG HCO3 ABG Base Excess ABG Hemoglobin Oxyhemoglobin Sodium Potassium Chloride Carbon Dioxide BUN Creatinine Glucose POC Glucose 150 H 164 H Lactic Acid Calcium Phosphorus Magnesium Direct Bilirubin AST ALT Alkaline Phosphatase Lactate Dehydrogenase Troponin T C-Reactive Protein Total Protein Albumin Prealbumin Triglycerides Cholesterol LDL Cholesterol Direct HDL Cholesterol Urine pH Urine WBC (Auto) Urine Creatinine Urine Total Protein Fluid Total Protein Vancomycin Trough Rheumatoid Factor Complement C4 Miscellaneous Test Crossmatch See Detail 10/06/16 10/06/16 10/06/16 03:50 03:50 04:53 WBC RBC 3.00 L Hgb 8.6 L Hct 25.8 L MCV MCH MCHC RDW 17.9 H Plt Count 65 L Lymph % (Auto) [place] % (Auto) Lymph # [place] # Baso # Seg Neutrophils % Seg Neuts % (Manual) 30.0 L Lymphocytes % (Manual) 5.0 L Monocytes % (Manual) Eosinophils % (Manual) Basophils % (Manual) Nucleated RBC % Seg Neutrophils # Seg Neutrophils # Man Lymphocytes # (Manual) 0.4 L Monocytes # (Manual) Eosinophils # (Manual) Basophils # (Manual) PT INR Fibrinogen dRVVT Confirm Interp Factor V Activity POC ABG pH 7.310 L POC ABG pCO2 49.0 H POC ABG pO2 ABG pO2 ABG HCO3 ABG Base Excess ABG Hemoglobin Oxyhemoglobin Sodium 133 L Potassium Chloride 95.9 L Carbon Dioxide BUN 26 H Creatinine 2.0 H Glucose 116 H POC Glucose Lactic Acid Calcium 7.8 L Phosphorus Magnesium Direct Bilirubin AST ALT Alkaline Phosphatase Lactate Dehydrogenase Troponin T C-Reactive Protein Total Protein Albumin Prealbumin Triglycerides Cholesterol LDL Cholesterol Direct HDL Cholesterol Urine pH Urine WBC (Auto) Urine Creatinine Urine Total Protein Fluid Total Protein Vancomycin Trough Rheumatoid Factor Complement C4 Miscellaneous Test Crossmatch 10/06/16 10/06/16 10/06/16 05:23 11:52 18:34 WBC RBC Hgb Hct MCV MCH MCHC RDW Plt Count Lymph % (Auto) [place] % (Auto) Lymph # [place] # Baso # Seg Neutrophils % Seg Neuts % (Manual) Lymphocytes % (Manual) Monocytes % (Manual) Eosinophils % (Manual) Basophils % (Manual) Nucleated RBC % Seg Neutrophils # Seg Neutrophils # Man Lymphocytes # (Manual) Monocytes # (Manual) Eosinophils # (Manual) Basophils # (Manual) PT INR Fibrinogen dRVVT Confirm Interp Factor V Activity POC ABG pH POC ABG pCO2 POC ABG pO2 ABG pO2 ABG HCO3 ABG Base Excess ABG Hemoglobin Oxyhemoglobin Sodium Potassium Chloride Carbon Dioxide BUN Creatinine Glucose POC Glucose 126 H 116 H 129 H Lactic Acid Calcium Phosphorus Magnesium Direct Bilirubin AST ALT Alkaline Phosphatase Lactate Dehydrogenase Troponin T C-Reactive Protein Total Protein Albumin Prealbumin Triglycerides Cholesterol LDL Cholesterol Direct HDL Cholesterol Urine pH Urine WBC (Auto) Urine Creatinine Urine Total Protein Fluid Total Protein Vancomycin Trough Rheumatoid Factor Complement C4 Miscellaneous Test Crossmatch 10/07/16 10/07/16 10/07/16 03:45 05:00 10:00 WBC 17.0 H RBC 2.68 L Hgb 7.3 L Hct 25.3 L MCV MCH 27 L MCHC 29 L RDW 19.6 H Plt Count 74 L Lymph % (Auto) [place] % (Auto) Lymph # [place] # Baso # Seg Neutrophils % Seg Neuts % (Manual) Lymphocytes % (Manual) 12.0 L Monocytes % (Manual) Eosinophils % (Manual) Basophils % (Manual) Nucleated RBC % 4.0 H Seg Neutrophils # Seg Neutrophils # Man 10.7 H Lymphocytes # (Manual) Monocytes # (Manual) Eosinophils # (Manual) Basophils # (Manual) PT INR Fibrinogen dRVVT Confirm Interp Factor V Activity POC ABG pH POC ABG pCO2 POC ABG pO2 ABG pO2 ABG HCO3 ABG Base Excess ABG Hemoglobin Oxyhemoglobin Sodium 130 L Potassium 3.2 L Chloride 93.9 L Carbon Dioxide 20 L BUN 44 H Creatinine 2.7 H Glucose 129 H POC Glucose Lactic Acid Calcium 7.4 L Phosphorus Magnesium Direct Bilirubin AST ALT 6 L Alkaline Phosphatase 195 H Lactate Dehydrogenase Troponin T C-Reactive Protein Total Protein 4.9 L Albumin 1.0 L Prealbumin Triglycerides Cholesterol LDL Cholesterol Direct HDL Cholesterol Urine pH Urine WBC (Auto) Urine Creatinine Urine Total Protein Fluid Total Protein Vancomycin Trough Rheumatoid Factor Complement C4 Miscellaneous Test Flexitest 1 H Crossmatch 10/07/16 10/07/16 10/07/16 10:00 11:24 18:10 WBC RBC Hgb Hct MCV MCH MCHC RDW Plt Count Lymph % (Auto) [place] % (Auto) Lymph # [place] # Baso # Seg Neutrophils % Seg Neuts % (Manual) Lymphocytes % (Manual) Monocytes % (Manual) Eosinophils % (Manual) Basophils % (Manual) Nucleated RBC % Seg Neutrophils # Seg Neutrophils # Man Lymphocytes # (Manual) Monocytes # (Manual) Eosinophils # (Manual) Basophils # (Manual) PT INR Fibrinogen dRVVT Confirm Interp Factor V Activity POC ABG pH POC ABG pCO2 POC ABG pO2 ABG pO2 ABG HCO3 ABG Base Excess ABG Hemoglobin Oxyhemoglobin Sodium Potassium Chloride Carbon Dioxide BUN Creatinine Glucose POC Glucose 116 H 130 H Lactic Acid Calcium Phosphorus Magnesium Direct Bilirubin AST ALT Alkaline Phosphatase Lactate Dehydrogenase Troponin T C-Reactive Protein 19.40 H Total Protein Albumin Prealbumin Triglycerides Cholesterol LDL Cholesterol Direct HDL Cholesterol Urine pH Urine WBC (Auto) Urine Creatinine Urine Total Protein Fluid Total Protein Vancomycin Trough Rheumatoid Factor Complement C4 Miscellaneous Test Crossmatch 10/07/16 10/08/16 10/08/16 18:30 00:00 04:00 WBC RBC Hgb Hct MCV MCH MCHC RDW Plt Count Lymph % (Auto) [place] % (Auto) Lymph # [place] # Baso # Seg Neutrophils % Seg Neuts % (Manual) Lymphocytes % (Manual) Monocytes % (Manual) Eosinophils % (Manual) Basophils % (Manual) Nucleated RBC % Seg Neutrophils # Seg Neutrophils # Man Lymphocytes # (Manual) Monocytes # (Manual) Eosinophils # (Manual) Basophils # (Manual) PT INR Fibrinogen dRVVT Confirm Interp Factor V Activity POC ABG pH POC ABG pCO2 POC ABG pO2 ABG pO2 ABG HCO3 ABG Base Excess ABG Hemoglobin Oxyhemoglobin Sodium 132 L Potassium 3.3 L Chloride 93.6 L Carbon Dioxide 17 L BUN 59 H Creatinine 2.7 H Glucose 121 H POC Glucose 122 H Lactic Acid Calcium 7.6 L Phosphorus Magnesium Direct Bilirubin AST ALT Alkaline Phosphatase Lactate Dehydrogenase Troponin T C-Reactive Protein Total Protein Albumin Prealbumin Triglycerides Cholesterol LDL Cholesterol Direct HDL Cholesterol Urine pH Urine WBC (Auto) > 182.0 H Urine Creatinine Urine Total Protein Fluid Total Protein Vancomycin Trough Rheumatoid Factor Complement C4 Miscellaneous Test Crossmatch 10/08/16 10/08/16 10/08/16 04:30 05:30 11:51 WBC RBC 5.15 H Hgb 14.4 H D Hct 44.5 H D MCV MCH MCHC RDW 19.5 H Plt Count 56 L Lymph % (Auto) [place] % (Auto) Lymph # [place] # Baso # Seg Neutrophils % Seg Neuts % (Manual) 24.0 L Lymphocytes % (Manual) 8.0 L Monocytes % (Manual) Eosinophils % (Manual) Basophils % (Manual) Nucleated RBC % 9.0 H Seg Neutrophils # Seg Neutrophils # Man Lymphocytes # (Manual) 0.7 L Monocytes # (Manual) Eosinophils # (Manual) Basophils # (Manual) PT INR Fibrinogen dRVVT Confirm Interp Factor V Activity POC ABG pH POC ABG pCO2 POC ABG pO2 ABG pO2 ABG HCO3 ABG Base Excess ABG Hemoglobin Oxyhemoglobin Sodium Potassium Chloride Carbon Dioxide BUN Creatinine Glucose POC Glucose 125 H 150 H Lactic Acid Calcium Phosphorus Magnesium Direct Bilirubin AST ALT Alkaline Phosphatase Lactate Dehydrogenase Troponin T C-Reactive Protein Total Protein Albumin Prealbumin Triglycerides Cholesterol LDL Cholesterol Direct HDL Cholesterol Urine pH Urine WBC (Auto) Urine Creatinine Urine Total Protein Fluid Total Protein Vancomycin Trough Rheumatoid Factor Complement C4 Miscellaneous Test Crossmatch 10/08/16 10/08/16 10/08/16 12:49 17:07 19:30 WBC RBC Hgb 7.1 L D Hct 22.4 L D MCV MCH MCHC RDW Plt Count Lymph % (Auto) [place] % (Auto) Lymph # [place] # Baso # Seg Neutrophils % Seg Neuts % (Manual) Lymphocytes % (Manual) Monocytes % (Manual) Eosinophils % (Manual) Basophils % (Manual) Nucleated RBC % Seg Neutrophils # Seg Neutrophils # Man Lymphocytes # (Manual) Monocytes # (Manual) Eosinophils # (Manual) Basophils # (Manual) PT INR Fibrinogen dRVVT Confirm Interp Factor V Activity POC ABG pH POC ABG pCO2 28.2 L POC ABG pO2 111 H ABG pO2 ABG HCO3 ABG Base Excess ABG Hemoglobin Oxyhemoglobin Sodium Potassium Chloride Carbon Dioxide BUN Creatinine Glucose POC Glucose 145 H Lactic Acid Calcium Phosphorus Magnesium Direct Bilirubin AST ALT Alkaline Phosphatase Lactate Dehydrogenase Troponin T C-Reactive Protein Total Protein Albumin Prealbumin Triglycerides Cholesterol LDL Cholesterol Direct HDL Cholesterol Urine pH Urine WBC (Auto) Urine Creatinine Urine Total Protein Fluid Total Protein Vancomycin Trough Rheumatoid Factor Complement C4 Miscellaneous Test Crossmatch 10/08/16 10/09/16 10/09/16 19:30 03:45 03:45 WBC 12.6 H RBC 2.36 L Hgb 6.7 L Hct 21.1 L MCV MCH MCHC RDW 19.5 H Plt Count 75 L Lymph % (Auto) [place] % (Auto) Lymph # [place] # Baso # Seg Neutrophils % Seg Neuts % (Manual) Lymphocytes % (Manual) Monocytes % (Manual) 10.0 H Eosinophils % (Manual) Basophils % (Manual) Nucleated RBC % 3.0 H Seg Neutrophils # Seg Neutrophils # Man Lymphocytes # (Manual) Monocytes # (Manual) 1.3 H Eosinophils # (Manual) Basophils # (Manual) PT 18.0 H INR 1.41 H Fibrinogen dRVVT Confirm Interp Factor V Activity POC ABG pH POC ABG pCO2 POC ABG pO2 ABG pO2 ABG HCO3 ABG Base Excess ABG Hemoglobin Oxyhemoglobin Sodium 135 L Potassium Chloride Carbon Dioxide 17 L BUN 81 H Creatinine 3.2 H Glucose 109 H POC Glucose Lactic Acid Calcium 7.4 L Phosphorus 4.60 H D Magnesium Direct Bilirubin AST ALT Alkaline Phosphatase Lactate Dehydrogenase Troponin T C-Reactive Protein Total Protein Albumin Prealbumin Triglycerides Cholesterol LDL Cholesterol Direct HDL Cholesterol Urine pH Urine WBC (Auto) Urine Creatinine Urine Total Protein Fluid Total Protein Vancomycin Trough Rheumatoid Factor Complement C4 Miscellaneous Test Crossmatch 10/09/16 10/09/16 10/09/16 03:45 05:14 07:20 WBC RBC Hgb Hct MCV MCH MCHC RDW Plt Count Lymph % (Auto) [place] % (Auto) Lymph # [place] # Baso # Seg Neutrophils % Seg Neuts % (Manual) Lymphocytes % (Manual) Monocytes % (Manual) Eosinophils % (Manual) Basophils % (Manual) Nucleated RBC % Seg Neutrophils # Seg Neutrophils # Man Lymphocytes # (Manual) Monocytes # (Manual) Eosinophils # (Manual) Basophils # (Manual) PT 19.0 H INR 1.51 H Fibrinogen dRVVT Confirm Interp Factor V Activity POC ABG pH POC ABG pCO2 POC ABG pO2 ABG pO2 ABG HCO3 ABG Base Excess ABG Hemoglobin Oxyhemoglobin Sodium Potassium Chloride Carbon Dioxide BUN Creatinine Glucose POC Glucose 151 H Lactic Acid Calcium Phosphorus Magnesium Direct Bilirubin AST ALT Alkaline Phosphatase Lactate Dehydrogenase Troponin T C-Reactive Protein Total Protein Albumin Prealbumin Triglycerides Cholesterol LDL Cholesterol Direct HDL Cholesterol Urine pH Urine WBC (Auto) Urine Creatinine Urine Total Protein Fluid Total Protein Vancomycin Trough Rheumatoid Factor Complement C4 Miscellaneous Test Crossmatch See Detail 10/09/16 10/09/16 10/09/16 11:46 16:20 16:43 WBC RBC Hgb 7.2 L Hct 22.2 L MCV MCH MCHC RDW Plt Count Lymph % (Auto) [place] % (Auto) Lymph # [place] # Baso # Seg Neutrophils % Seg Neuts % (Manual) Lymphocytes % (Manual) Monocytes % (Manual) Eosinophils % (Manual) Basophils % (Manual) Nucleated RBC % Seg Neutrophils # Seg Neutrophils # Man Lymphocytes # (Manual) Monocytes # (Manual) Eosinophils # (Manual) Basophils # (Manual) PT INR Fibrinogen dRVVT Confirm Interp Factor V Activity POC ABG pH POC ABG pCO2 POC ABG pO2 ABG pO2 ABG HCO3 ABG Base Excess ABG Hemoglobin Oxyhemoglobin Sodium Potassium Chloride Carbon Dioxide BUN Creatinine Glucose POC Glucose 133 H 141 H Lactic Acid Calcium Phosphorus Magnesium Direct Bilirubin AST ALT Alkaline Phosphatase Lactate Dehydrogenase Troponin T C-Reactive Protein Total Protein Albumin Prealbumin Triglycerides Cholesterol LDL Cholesterol Direct HDL Cholesterol Urine pH Urine WBC (Auto) Urine Creatinine Urine Total Protein Fluid Total Protein Vancomycin Trough Rheumatoid Factor Complement C4 Miscellaneous Test Crossmatch 10/10/16 10/10/16 10/10/16 05:00 05:00 11:19 WBC 18.5 H RBC 2.19 L Hgb 6.4 L Hct 19.6 L* MCV MCH MCHC RDW 19.3 H Plt Count 93 L Lymph % (Auto) [place] % (Auto) Lymph # [place] # Baso # Seg Neutrophils % Seg Neuts % (Manual) Lymphocytes % (Manual) 10.0 L Monocytes % (Manual) Eosinophils % (Manual) Basophils % (Manual) Nucleated RBC % 4.0 H Seg Neutrophils # Seg Neutrophils # Man 11.3 H Lymphocytes # (Manual) Monocytes # (Manual) Eosinophils # (Manual) Basophils # (Manual) PT INR Fibrinogen dRVVT Confirm Interp Factor V Activity POC ABG pH POC ABG pCO2 POC ABG pO2 ABG pO2 ABG HCO3 ABG Base Excess ABG Hemoglobin Oxyhemoglobin Sodium Potassium 5.7 H D Chloride Carbon Dioxide 16 L BUN 94 H Creatinine 3.1 H Glucose 131 H POC Glucose 153 H Lactic Acid Calcium 8.2 L Phosphorus 5.10 H Magnesium 2.40 H Direct Bilirubin 0.3 H AST ALT < 5 L Alkaline Phosphatase 319 H Lactate Dehydrogenase Troponin T C-Reactive Protein Total Protein 5.1 L Albumin 1.0 L Prealbumin Triglycerides Cholesterol LDL Cholesterol Direct HDL Cholesterol Urine pH Urine WBC (Auto) Urine Creatinine Urine Total Protein Fluid Total Protein Vancomycin Trough Rheumatoid Factor Complement C4 Miscellaneous Test Crossmatch 10/10/16 10/10/16 10/11/16 17:50 23:30 04:15 WBC RBC Hgb Hct MCV MCH MCHC RDW Plt Count Lymph % (Auto) [place] % (Auto) Lymph # [place] # Baso # Seg Neutrophils % Seg Neuts % (Manual) Lymphocytes % (Manual) Monocytes % (Manual) Eosinophils % (Manual) Basophils % (Manual) Nucleated RBC % Seg Neutrophils # Seg Neutrophils # Man Lymphocytes # (Manual) Monocytes # (Manual) Eosinophils # (Manual) Basophils # (Manual) PT INR Fibrinogen dRVVT Confirm Interp Factor V Activity POC ABG pH POC ABG pCO2 POC ABG pO2 ABG pO2 ABG HCO3 ABG Base Excess ABG Hemoglobin Oxyhemoglobin Sodium Potassium Chloride 96.4 L Carbon Dioxide 21 L BUN 57 H Creatinine 2.1 H Glucose 151 H POC Glucose 146 H 141 H Lactic Acid Calcium 8.3 L Phosphorus Magnesium Direct Bilirubin AST ALT Alkaline Phosphatase Lactate Dehydrogenase Troponin T C-Reactive Protein Total Protein Albumin Prealbumin Triglycerides Cholesterol LDL Cholesterol Direct HDL Cholesterol Urine pH Urine WBC (Auto) Urine Creatinine Urine Total Protein Fluid Total Protein Vancomycin Trough Rheumatoid Factor Complement C4 Miscellaneous Test Crossmatch 10/11/16 10/11/16 10/11/16 04:15 04:15 05:30 WBC 28.3 H RBC 3.12 L Hgb 9.3 L Hct 28.7 L D MCV MCH MCHC RDW 17.7 H Plt Count 128 L Lymph % (Auto) [place] % (Auto) Lymph # [place] # Baso # Seg Neutrophils % Seg Neuts % (Manual) Lymphocytes % (Manual) Monocytes % (Manual) Eosinophils % (Manual) Basophils % (Manual) Nucleated RBC % Seg Neutrophils # Seg Neutrophils # Man Lymphocytes # (Manual) Monocytes # (Manual) Eosinophils # (Manual) Basophils # (Manual) PT INR Fibrinogen dRVVT Confirm Interp Factor V Activity POC ABG pH POC ABG pCO2 POC ABG pO2 ABG pO2 ABG HCO3 ABG Base Excess ABG Hemoglobin Oxyhemoglobin Sodium Potassium Chloride Carbon Dioxide BUN Creatinine Glucose POC Glucose 167 H Lactic Acid Calcium Phosphorus Magnesium Direct Bilirubin AST ALT Alkaline Phosphatase Lactate Dehydrogenase Troponin T C-Reactive Protein 15.80 H Total Protein Albumin Prealbumin Triglycerides Cholesterol LDL Cholesterol Direct HDL Cholesterol Urine pH Urine WBC (Auto) Urine Creatinine Urine Total Protein Fluid Total Protein Vancomycin Trough Rheumatoid Factor Complement C4 Miscellaneous Test Crossmatch 10/11/16 10/11/16 10/11/16 11:40 15:49 23:57 WBC RBC Hgb Hct MCV MCH MCHC RDW Plt Count Lymph % (Auto) [place] % (Auto) Lymph # [place] # Baso # Seg Neutrophils % Seg Neuts % (Manual) Lymphocytes % (Manual) Monocytes % (Manual) Eosinophils % (Manual) Basophils % (Manual) Nucleated RBC % Seg Neutrophils # Seg Neutrophils # Man Lymphocytes # (Manual) Monocytes # (Manual) Eosinophils # (Manual) Basophils # (Manual) PT INR Fibrinogen dRVVT Confirm Interp Factor V Activity POC ABG pH POC ABG pCO2 POC ABG pO2 ABG pO2 ABG HCO3 ABG Base Excess ABG Hemoglobin Oxyhemoglobin Sodium Potassium Chloride Carbon Dioxide BUN Creatinine Glucose POC Glucose 139 H 168 H 161 H Lactic Acid Calcium Phosphorus Magnesium Direct Bilirubin AST ALT Alkaline Phosphatase Lactate Dehydrogenase Troponin T C-Reactive Protein Total Protein Albumin Prealbumin Triglycerides Cholesterol LDL Cholesterol Direct HDL Cholesterol Urine pH Urine WBC (Auto) Urine Creatinine Urine Total Protein Fluid Total Protein Vancomycin Trough Rheumatoid Factor Complement C4 Miscellaneous Test Crossmatch 10/12/16 10/12/16 10/12/16 04:40 04:40 05:44 WBC 22.5 H RBC 2.88 L Hgb 8.8 L Hct 26.8 L MCV MCH MCHC RDW 17.8 H Plt Count Lymph % (Auto) [place] % (Auto) Lymph # [place] # Baso # Seg Neutrophils % Seg Neuts % (Manual) Lymphocytes % (Manual) Monocytes % (Manual) Eosinophils % (Manual) Basophils % (Manual) Nucleated RBC % Seg Neutrophils # Seg Neutrophils # Man Lymphocytes # (Manual) Monocytes # (Manual) Eosinophils # (Manual) Basophils # (Manual) PT INR Fibrinogen dRVVT Confirm Interp Factor V Activity POC ABG pH POC ABG pCO2 POC ABG pO2 ABG pO2 ABG HCO3 ABG Base Excess ABG Hemoglobin Oxyhemoglobin Sodium 134 L Potassium Chloride 93.0 L Carbon Dioxide BUN 74 H Creatinine 2.5 H Glucose 137 H POC Glucose 158 H Lactic Acid Calcium 8.2 L Phosphorus Magnesium Direct Bilirubin AST ALT Alkaline Phosphatase Lactate Dehydrogenase Troponin T C-Reactive Protein Total Protein Albumin Prealbumin Triglycerides Cholesterol LDL Cholesterol Direct HDL Cholesterol Urine pH Urine WBC (Auto) Urine Creatinine Urine Total Protein Fluid Total Protein Vancomycin Trough Rheumatoid Factor Complement C4 Miscellaneous Test Crossmatch 10/12/16 10/12/16 10/12/16 12:27 18:18 23:46 WBC RBC Hgb Hct MCV MCH MCHC RDW Plt Count Lymph % (Auto) [place] % (Auto) Lymph # [place] # Baso # Seg Neutrophils % Seg Neuts % (Manual) Lymphocytes % (Manual) Monocytes % (Manual) Eosinophils % (Manual) Basophils % (Manual) Nucleated RBC % Seg Neutrophils # Seg Neutrophils # Man Lymphocytes # (Manual) Monocytes # (Manual) Eosinophils # (Manual) Basophils # (Manual) PT INR Fibrinogen dRVVT Confirm Interp Factor V Activity POC ABG pH POC ABG pCO2 POC ABG pO2 ABG pO2 ABG HCO3 ABG Base Excess ABG Hemoglobin Oxyhemoglobin Sodium Potassium Chloride Carbon Dioxide BUN Creatinine Glucose POC Glucose 153 H 140 H 150 H Lactic Acid Calcium Phosphorus Magnesium Direct Bilirubin AST ALT Alkaline Phosphatase Lactate Dehydrogenase Troponin T C-Reactive Protein Total Protein Albumin Prealbumin Triglycerides Cholesterol LDL Cholesterol Direct HDL Cholesterol Urine pH Urine WBC (Auto) Urine Creatinine Urine Total Protein Fluid Total Protein Vancomycin Trough Rheumatoid Factor Complement C4 Miscellaneous Test Crossmatch 10/13/16 10/13/16 10/13/16 06:22 09:20 12:29 WBC RBC Hgb Hct MCV MCH MCHC RDW Plt Count Lymph % (Auto) [place] % (Auto) Lymph # [place] # Baso # Seg Neutrophils % Seg Neuts % (Manual) Lymphocytes % (Manual) Monocytes % (Manual) Eosinophils % (Manual) Basophils % (Manual) Nucleated RBC % Seg Neutrophils # Seg Neutrophils # Man Lymphocytes # (Manual) Monocytes # (Manual) Eosinophils # (Manual) Basophils # (Manual) PT INR Fibrinogen dRVVT Confirm Interp Factor V Activity POC ABG pH POC ABG pCO2 POC ABG pO2 ABG pO2 ABG HCO3 ABG Base Excess ABG Hemoglobin Oxyhemoglobin Sodium Potassium Chloride Carbon Dioxide BUN Creatinine Glucose POC Glucose 165 H 193 H Lactic Acid Calcium Phosphorus Magnesium Direct Bilirubin AST ALT Alkaline Phosphatase Lactate Dehydrogenase Troponin T C-Reactive Protein Total Protein Albumin Prealbumin Triglycerides Cholesterol LDL Cholesterol Direct HDL Cholesterol Urine pH Urine WBC (Auto) Urine Creatinine Urine Total Protein Fluid Total Protein Vancomycin Trough Rheumatoid Factor Complement C4 Miscellaneous Test Flexitest 1 H Crossmatch 10/13/16 10/13/16 10/13/16 18:09 Unknown Unknown WBC 23.4 H RBC 2.83 L Hgb 8.7 L Hct 26.1 L MCV MCH MCHC RDW 18.1 H Plt Count Lymph % (Auto) [place] % (Auto) Lymph # [place] # Baso # Seg Neutrophils % Seg Neuts % (Manual) Lymphocytes % (Manual) Monocytes % (Manual) Eosinophils % (Manual) Basophils % (Manual) Nucleated RBC % Seg Neutrophils # Seg Neutrophils # Man Lymphocytes # (Manual) Monocytes # (Manual) Eosinophils # (Manual) Basophils # (Manual) PT INR Fibrinogen dRVVT Confirm Interp Factor V Activity POC ABG pH POC ABG pCO2 POC ABG pO2 ABG pO2 ABG HCO3 ABG Base Excess ABG Hemoglobin Oxyhemoglobin Sodium Potassium Chloride 95.8 L Carbon Dioxide BUN 82 H Creatinine 2.6 H Glucose 152 H POC Glucose 166 H Lactic Acid Calcium Phosphorus Magnesium Direct Bilirubin AST ALT Alkaline Phosphatase Lactate Dehydrogenase Troponin T C-Reactive Protein Total Protein Albumin Prealbumin Triglycerides Cholesterol LDL Cholesterol Direct HDL Cholesterol Urine pH Urine WBC (Auto) Urine Creatinine Urine Total Protein Fluid Total Protein Vancomycin Trough Rheumatoid Factor Complement C4 Miscellaneous Test Crossmatch 10/14/16 10/14/16 10/14/16 05:38 06:35 08:10 WBC 20.7 H RBC 2.81 L Hgb 8.4 L Hct 27.2 L MCV MCH MCHC RDW 19.4 H Plt Count Lymph % (Auto) [place] % (Auto) Lymph # [place] # Baso # Seg Neutrophils % Seg Neuts % (Manual) Lymphocytes % (Manual) Monocytes % (Manual) Eosinophils % (Manual) Basophils % (Manual) Nucleated RBC % Seg Neutrophils # Seg Neutrophils # Man Lymphocytes # (Manual) Monocytes # (Manual) Eosinophils # (Manual) Basophils # (Manual) PT INR Fibrinogen dRVVT Confirm Interp Factor V Activity POC ABG pH POC ABG pCO2 POC ABG pO2 ABG pO2 ABG HCO3 ABG Base Excess ABG Hemoglobin Oxyhemoglobin Sodium Potassium Chloride Carbon Dioxide BUN 58 H Creatinine 1.9 H Glucose 169 H POC Glucose 195 H Lactic Acid Calcium Phosphorus Magnesium Direct Bilirubin AST ALT Alkaline Phosphatase Lactate Dehydrogenase Troponin T C-Reactive Protein Total Protein Albumin Prealbumin Triglycerides Cholesterol LDL Cholesterol Direct HDL Cholesterol Urine pH Urine WBC (Auto) Urine Creatinine Urine Total Protein Fluid Total Protein Vancomycin Trough Rheumatoid Factor Complement C4 Miscellaneous Test Crossmatch 10/14/16 10/14/16 10/14/16 11:44 17:13 23:28 WBC RBC Hgb Hct MCV MCH MCHC RDW Plt Count Lymph % (Auto) [place] % (Auto) Lymph # [place] # Baso # Seg Neutrophils % Seg Neuts % (Manual) Lymphocytes % (Manual) Monocytes % (Manual) Eosinophils % (Manual) Basophils % (Manual) Nucleated RBC % Seg Neutrophils # Seg Neutrophils # Man Lymphocytes # (Manual) Monocytes # (Manual) Eosinophils # (Manual) Basophils # (Manual) PT INR Fibrinogen dRVVT Confirm Interp Factor V Activity POC ABG pH POC ABG pCO2 POC ABG pO2 ABG pO2 ABG HCO3 ABG Base Excess ABG Hemoglobin Oxyhemoglobin Sodium Potassium Chloride Carbon Dioxide BUN Creatinine Glucose POC Glucose 174 H 121 H 151 H Lactic Acid Calcium Phosphorus Magnesium Direct Bilirubin AST ALT Alkaline Phosphatase Lactate Dehydrogenase Troponin T C-Reactive Protein Total Protein Albumin Prealbumin Triglycerides Cholesterol LDL Cholesterol Direct HDL Cholesterol Urine pH Urine WBC (Auto) Urine Creatinine Urine Total Protein Fluid Total Protein Vancomycin Trough Rheumatoid Factor Complement C4 Miscellaneous Test Crossmatch 10/15/16 10/15/16 10/15/16 05:06 12:26 17:48 WBC RBC Hgb Hct MCV MCH MCHC RDW Plt Count Lymph % (Auto) [place] % (Auto) Lymph # [place] # Baso # Seg Neutrophils % Seg Neuts % (Manual) Lymphocytes % (Manual) Monocytes % (Manual) Eosinophils % (Manual) Basophils % (Manual) Nucleated RBC % Seg Neutrophils # Seg Neutrophils # Man Lymphocytes # (Manual) Monocytes # (Manual) Eosinophils # (Manual) Basophils # (Manual) PT INR Fibrinogen dRVVT Confirm Interp Factor V Activity POC ABG pH POC ABG pCO2 POC ABG pO2 ABG pO2 ABG HCO3 ABG Base Excess ABG Hemoglobin Oxyhemoglobin Sodium Potassium Chloride Carbon Dioxide BUN Creatinine Glucose POC Glucose 151 H 149 H 153 H Lactic Acid Calcium Phosphorus Magnesium Direct Bilirubin AST ALT Alkaline Phosphatase Lactate Dehydrogenase Troponin T C-Reactive Protein Total Protein Albumin Prealbumin Triglycerides Cholesterol LDL Cholesterol Direct HDL Cholesterol Urine pH Urine WBC (Auto) Urine Creatinine Urine Total Protein Fluid Total Protein Vancomycin Trough Rheumatoid Factor Complement C4 Miscellaneous Test Crossmatch 10/15/16 10/15/16 10/16/16 Unknown Unknown 00:02 WBC 23.4 H RBC 2.78 L Hgb 8.5 L Hct 25.7 L MCV MCH MCHC RDW 18.7 H Plt Count Lymph % (Auto) [place] % (Auto) Lymph # [place] # Baso # Seg Neutrophils % Seg Neuts % (Manual) Lymphocytes % (Manual) Monocytes % (Manual) Eosinophils % (Manual) Basophils % (Manual) Nucleated RBC % Seg Neutrophils # Seg Neutrophils # Man Lymphocytes # (Manual) Monocytes # (Manual) Eosinophils # (Manual) Basophils # (Manual) PT INR Fibrinogen dRVVT Confirm Interp Factor V Activity POC ABG pH POC ABG pCO2 POC ABG pO2 ABG pO2 ABG HCO3 ABG Base Excess ABG Hemoglobin Oxyhemoglobin Sodium Potassium Chloride Carbon Dioxide BUN 73 H Creatinine 2.3 H Glucose 120 H POC Glucose 137 H Lactic Acid Calcium Phosphorus Magnesium Direct Bilirubin AST ALT Alkaline Phosphatase Lactate Dehydrogenase Troponin T C-Reactive Protein Total Protein Albumin Prealbumin Triglycerides Cholesterol LDL Cholesterol Direct HDL Cholesterol Urine pH Urine WBC (Auto) Urine Creatinine Urine Total Protein Fluid Total Protein Vancomycin Trough Rheumatoid Factor Complement C4 Miscellaneous Test Crossmatch 10/16/16 10/16/16 10/16/16 05:44 06:25 06:25 WBC 22.5 H RBC 2.76 L Hgb 8.3 L Hct 25.2 L MCV MCH MCHC RDW 18.3 H Plt Count Lymph % (Auto) [place] % (Auto) Lymph # [place] # Baso # Seg Neutrophils % Seg Neuts % (Manual) Lymphocytes % (Manual) Monocytes % (Manual) Eosinophils % (Manual) Basophils % (Manual) Nucleated RBC % Seg Neutrophils # Seg Neutrophils # Man Lymphocytes # (Manual) Monocytes # (Manual) Eosinophils # (Manual) Basophils # (Manual) PT INR Fibrinogen dRVVT Confirm Interp Factor V Activity POC ABG pH POC ABG pCO2 POC ABG pO2 ABG pO2 ABG HCO3 ABG Base Excess ABG Hemoglobin Oxyhemoglobin Sodium Potassium Chloride Carbon Dioxide BUN 92 H Creatinine 3.0 H Glucose 138 H POC Glucose 110 H Lactic Acid Calcium Phosphorus Magnesium Direct Bilirubin AST ALT Alkaline Phosphatase Lactate Dehydrogenase Troponin T C-Reactive Protein Total Protein Albumin Prealbumin Triglycerides Cholesterol LDL Cholesterol Direct HDL Cholesterol Urine pH Urine WBC (Auto) Urine Creatinine Urine Total Protein Fluid Total Protein Vancomycin Trough Rheumatoid Factor Complement C4 Miscellaneous Test Crossmatch 10/16/16 10/16/16 10/16/16 11:27 11:48 17:36 WBC RBC Hgb Hct MCV MCH MCHC RDW Plt Count Lymph % (Auto) [place] % (Auto) Lymph # [place] # Baso # Seg Neutrophils % Seg Neuts % (Manual) Lymphocytes % (Manual) Monocytes % (Manual) Eosinophils % (Manual) Basophils % (Manual) Nucleated RBC % Seg Neutrophils # Seg Neutrophils # Man Lymphocytes # (Manual) Monocytes # (Manual) Eosinophils # (Manual) Basophils # (Manual) PT INR Fibrinogen dRVVT Confirm Interp Factor V Activity POC ABG pH 7.582 H POC ABG pCO2 27.4 L POC ABG pO2 110 H ABG pO2 ABG HCO3 ABG Base Excess ABG Hemoglobin Oxyhemoglobin Sodium Potassium Chloride Carbon Dioxide BUN Creatinine Glucose POC Glucose 121 H 133 H Lactic Acid Calcium Phosphorus Magnesium Direct Bilirubin AST ALT Alkaline Phosphatase Lactate Dehydrogenase Troponin T C-Reactive Protein Total Protein Albumin Prealbumin Triglycerides Cholesterol LDL Cholesterol Direct HDL Cholesterol Urine pH Urine WBC (Auto) Urine Creatinine Urine Total Protein Fluid Total Protein Vancomycin Trough Rheumatoid Factor Complement C4 Miscellaneous Test Crossmatch 10/16/16 10/17/16 10/17/16 20:48 04:24 04:24 WBC 21.4 H RBC 2.72 L Hgb 8.0 L Hct 25.2 L MCV MCH MCHC RDW 18.0 H Plt Count Lymph % (Auto) [place] % (Auto) Lymph # [place] # Baso # Seg Neutrophils % Seg Neuts % (Manual) Lymphocytes % (Manual) Monocytes % (Manual) Eosinophils % (Manual) Basophils % (Manual) Nucleated RBC % Seg Neutrophils # Seg Neutrophils # Man Lymphocytes # (Manual) Monocytes # (Manual) Eosinophils # (Manual) Basophils # (Manual) PT INR Fibrinogen dRVVT Confirm Interp Factor V Activity POC ABG pH 7.561 H POC ABG pCO2 24.4 L POC ABG pO2 77 L ABG pO2 ABG HCO3 ABG Base Excess ABG Hemoglobin Oxyhemoglobin Sodium 148 H Potassium Chloride Carbon Dioxide BUN 104 H Creatinine 3.0 H Glucose 149 H POC Glucose Lactic Acid Calcium Phosphorus Magnesium Direct Bilirubin AST ALT Alkaline Phosphatase 138 H Lactate Dehydrogenase Troponin T C-Reactive Protein Total Protein 6.2 L Albumin 1.5 L Prealbumin Triglycerides Cholesterol LDL Cholesterol Direct HDL Cholesterol Urine pH Urine WBC (Auto) Urine Creatinine Urine Total Protein Fluid Total Protein Vancomycin Trough Rheumatoid Factor Complement C4 Miscellaneous Test Crossmatch 10/17/16 10/17/16 10/17/16 06:02 12:17 17:14 WBC RBC Hgb Hct MCV MCH MCHC RDW Plt Count Lymph % (Auto) [place] % (Auto) Lymph # [place] # Baso # Seg Neutrophils % Seg Neuts % (Manual) Lymphocytes % (Manual) Monocytes % (Manual) Eosinophils % (Manual) Basophils % (Manual) Nucleated RBC % Seg Neutrophils # Seg Neutrophils # Man Lymphocytes # (Manual) Monocytes # (Manual) Eosinophils # (Manual) Basophils # (Manual) PT INR Fibrinogen dRVVT Confirm Interp Factor V Activity POC ABG pH POC ABG pCO2 POC ABG pO2 ABG pO2 ABG HCO3 ABG Base Excess ABG Hemoglobin Oxyhemoglobin Sodium Potassium Chloride Carbon Dioxide BUN Creatinine Glucose POC Glucose 170 H 167 H 126 H Lactic Acid Calcium Phosphorus Magnesium Direct Bilirubin AST ALT Alkaline Phosphatase Lactate Dehydrogenase Troponin T C-Reactive Protein Total Protein Albumin Prealbumin Triglycerides Cholesterol LDL Cholesterol Direct HDL Cholesterol Urine pH Urine WBC (Auto) Urine Creatinine Urine Total Protein Fluid Total Protein Vancomycin Trough Rheumatoid Factor Complement C4 Miscellaneous Test Crossmatch 10/17/16 10/18/16 10/18/16 23:17 04:00 04:00 WBC 20.7 H RBC 2.47 L Hgb 7.4 L Hct 22.9 L MCV MCH MCHC RDW 17.5 H Plt Count Lymph % (Auto) [place] % (Auto) Lymph # [place] # Baso # Seg Neutrophils % Seg Neuts % (Manual) Lymphocytes % (Manual) Monocytes % (Manual) Eosinophils % (Manual) Basophils % (Manual) Nucleated RBC % Seg Neutrophils # Seg Neutrophils # Man Lymphocytes # (Manual) Monocytes # (Manual) Eosinophils # (Manual) Basophils # (Manual) PT INR Fibrinogen dRVVT Confirm Interp Factor V Activity POC ABG pH POC ABG pCO2 POC ABG pO2 ABG pO2 ABG HCO3 ABG Base Excess ABG Hemoglobin Oxyhemoglobin Sodium 149 H Potassium Chloride 107.9 H Carbon Dioxide 20 L BUN 117 H Creatinine 3.2 H Glucose 119 H POC Glucose 121 H Lactic Acid Calcium Phosphorus Magnesium Direct Bilirubin AST ALT Alkaline Phosphatase Lactate Dehydrogenase Troponin T C-Reactive Protein Total Protein Albumin Prealbumin Triglycerides Cholesterol LDL Cholesterol Direct HDL Cholesterol Urine pH Urine WBC (Auto) Urine Creatinine Urine Total Protein Fluid Total Protein Vancomycin Trough Rheumatoid Factor Complement C4 Miscellaneous Test Crossmatch 10/18/16 10/18/16 10/18/16 05:23 10:46 17:30 WBC RBC Hgb Hct MCV MCH MCHC RDW Plt Count Lymph % (Auto) [place] % (Auto) Lymph # [place] # Baso # Seg Neutrophils % Seg Neuts % (Manual) Lymphocytes % (Manual) Monocytes % (Manual) Eosinophils % (Manual) Basophils % (Manual) Nucleated RBC % Seg Neutrophils # Seg Neutrophils # Man Lymphocytes # (Manual) Monocytes # (Manual) Eosinophils # (Manual) Basophils # (Manual) PT INR Fibrinogen dRVVT Confirm Interp Factor V Activity POC ABG pH POC ABG pCO2 POC ABG pO2 ABG pO2 ABG HCO3 ABG Base Excess ABG Hemoglobin Oxyhemoglobin Sodium Potassium Chloride Carbon Dioxide BUN Creatinine Glucose POC Glucose 119 H 155 H 124 H Lactic Acid Calcium Phosphorus Magnesium Direct Bilirubin AST ALT Alkaline Phosphatase Lactate Dehydrogenase Troponin T C-Reactive Protein Total Protein Albumin Prealbumin Triglycerides Cholesterol LDL Cholesterol Direct HDL Cholesterol Urine pH Urine WBC (Auto) Urine Creatinine Urine Total Protein Fluid Total Protein Vancomycin Trough Rheumatoid Factor Complement C4 Miscellaneous Test Crossmatch 10/19/16 10/19/16 10/19/16 04:00 04:00 05:25 WBC 17.4 H RBC 2.54 L Hgb 7.7 L Hct 23.6 L MCV MCH MCHC RDW 17.3 H Plt Count Lymph % (Auto) [place] % (Auto) Lymph # [place] # Baso # Seg Neutrophils % Seg Neuts % (Manual) Lymphocytes % (Manual) Monocytes % (Manual) Eosinophils % (Manual) Basophils % (Manual) Nucleated RBC % Seg Neutrophils # Seg Neutrophils # Man Lymphocytes # (Manual) Monocytes # (Manual) Eosinophils # (Manual) Basophils # (Manual) PT INR Fibrinogen dRVVT Confirm Interp Factor V Activity POC ABG pH POC ABG pCO2 POC ABG pO2 ABG pO2 ABG HCO3 ABG Base Excess ABG Hemoglobin Oxyhemoglobin Sodium Potassium Chloride Carbon Dioxide BUN 72 H Creatinine 2.1 H Glucose 116 H POC Glucose 119 H Lactic Acid Calcium Phosphorus Magnesium Direct Bilirubin AST ALT Alkaline Phosphatase Lactate Dehydrogenase Troponin T C-Reactive Protein Total Protein Albumin Prealbumin Triglycerides Cholesterol LDL Cholesterol Direct HDL Cholesterol Urine pH Urine WBC (Auto) Urine Creatinine Urine Total Protein Fluid Total Protein Vancomycin Trough Rheumatoid Factor Complement C4 Miscellaneous Test Crossmatch 10/19/16 10/19/16 10/20/16 11:46 23:59 06:00 WBC RBC Hgb Hct MCV MCH MCHC RDW Plt Count Lymph % (Auto) [place] % (Auto) Lymph # [place] # Baso # Seg Neutrophils % Seg Neuts % (Manual) Lymphocytes % (Manual) Monocytes % (Manual) Eosinophils % (Manual) Basophils % (Manual) Nucleated RBC % Seg Neutrophils # Seg Neutrophils # Man Lymphocytes # (Manual) Monocytes # (Manual) Eosinophils # (Manual) Basophils # (Manual) PT INR Fibrinogen dRVVT Confirm Interp Factor V Activity POC ABG pH POC ABG pCO2 POC ABG pO2 ABG pO2 ABG HCO3 ABG Base Excess ABG Hemoglobin Oxyhemoglobin Sodium Potassium Chloride Carbon Dioxide 17 L BUN 94 H Creatinine 2.7 H Glucose POC Glucose 116 H 117 H Lactic Acid Calcium Phosphorus Magnesium Direct Bilirubin AST ALT Alkaline Phosphatase Lactate Dehydrogenase Troponin T C-Reactive Protein Total Protein Albumin Prealbumin Triglycerides Cholesterol LDL Cholesterol Direct HDL Cholesterol Urine pH Urine WBC (Auto) Urine Creatinine Urine Total Protein Fluid Total Protein Vancomycin Trough Rheumatoid Factor Complement C4 Miscellaneous Test Crossmatch 10/20/16 10/20/16 10/20/16 06:00 11:49 16:00 WBC 19.7 H RBC 2.51 L Hgb 7.7 L Hct 23.5 L MCV MCH MCHC RDW 17.5 H Plt Count Lymph % (Auto) [place] % (Auto) Lymph # [place] # Baso # Seg Neutrophils % Seg Neuts % (Manual) Lymphocytes % (Manual) Monocytes % (Manual) Eosinophils % (Manual) Basophils % (Manual) Nucleated RBC % Seg Neutrophils # Seg Neutrophils # Man Lymphocytes # (Manual) Monocytes # (Manual) Eosinophils # (Manual) Basophils # (Manual) PT INR Fibrinogen dRVVT Confirm Interp Factor V Activity POC ABG pH POC ABG pCO2 POC ABG pO2 ABG pO2 ABG HCO3 ABG Base Excess ABG Hemoglobin Oxyhemoglobin Sodium Potassium Chloride Carbon Dioxide BUN Creatinine Glucose POC Glucose 117 H Lactic Acid Calcium Phosphorus Magnesium Direct Bilirubin AST ALT Alkaline Phosphatase Lactate Dehydrogenase Troponin T C-Reactive Protein Total Protein Albumin Prealbumin Triglycerides Cholesterol LDL Cholesterol Direct HDL Cholesterol Urine pH Urine WBC (Auto) Urine Creatinine Urine Total Protein Fluid Total Protein Vancomycin Trough Rheumatoid Factor Complement C4 Miscellaneous Test Flexitest 1 H Crossmatch 10/20/16 10/20/16 10/21/16 18:36 23:39 04:00 WBC RBC Hgb Hct MCV MCH MCHC RDW Plt Count Lymph % (Auto) [place] % (Auto) Lymph # [place] # Baso # Seg Neutrophils % Seg Neuts % (Manual) Lymphocytes % (Manual) Monocytes % (Manual) Eosinophils % (Manual) Basophils % (Manual) Nucleated RBC % Seg Neutrophils # Seg Neutrophils # Man Lymphocytes # (Manual) Monocytes # (Manual) Eosinophils # (Manual) Basophils # (Manual) PT INR Fibrinogen dRVVT Confirm Interp Factor V Activity POC ABG pH POC ABG pCO2 POC ABG pO2 ABG pO2 ABG HCO3 ABG Base Excess ABG Hemoglobin Oxyhemoglobin Sodium Potassium 5.4 H D Chloride Carbon Dioxide 15 L BUN 110 H Creatinine 3.0 H Glucose POC Glucose 127 H 114 H Lactic Acid Calcium Phosphorus Magnesium Direct Bilirubin AST ALT Alkaline Phosphatase Lactate Dehydrogenase Troponin T C-Reactive Protein Total Protein Albumin Prealbumin Triglycerides Cholesterol LDL Cholesterol Direct HDL Cholesterol Urine pH Urine WBC (Auto) Urine Creatinine Urine Total Protein Fluid Total Protein Vancomycin Trough Rheumatoid Factor Complement C4 Miscellaneous Test Crossmatch 10/21/16 10/21/16 10/22/16 05:54 23:46 05:18 WBC RBC Hgb Hct MCV MCH MCHC RDW Plt Count Lymph % (Auto) [place] % (Auto) Lymph # [place] # Baso # Seg Neutrophils % Seg Neuts % (Manual) Lymphocytes % (Manual) Monocytes % (Manual) Eosinophils % (Manual) Basophils % (Manual) Nucleated RBC % Seg Neutrophils # Seg Neutrophils # Man Lymphocytes # (Manual) Monocytes # (Manual) Eosinophils # (Manual) Basophils # (Manual) PT INR Fibrinogen dRVVT Confirm Interp Factor V Activity POC ABG pH POC ABG pCO2 POC ABG pO2 ABG pO2 ABG HCO3 ABG Base Excess ABG Hemoglobin Oxyhemoglobin Sodium Potassium Chloride Carbon Dioxide BUN Creatinine Glucose POC Glucose 119 H 108 H 109 H Lactic Acid Calcium Phosphorus Magnesium Direct Bilirubin AST ALT Alkaline Phosphatase Lactate Dehydrogenase Troponin T C-Reactive Protein Total Protein Albumin Prealbumin Triglycerides Cholesterol LDL Cholesterol Direct HDL Cholesterol Urine pH Urine WBC (Auto) Urine Creatinine Urine Total Protein Fluid Total Protein Vancomycin Trough Rheumatoid Factor Complement C4 Miscellaneous Test Crossmatch 10/22/16 10/22/16 10/22/16 06:40 06:40 06:40 WBC 14.0 H RBC 2.03 L Hgb 7.0 L Hct 20.5 L MCV 98 H MCH 34 H MCHC 35 H RDW 17.8 H Plt Count Lymph % (Auto) [place] % (Auto) 9.9 H Lymph # [place] # 1.4 H Baso # 0.2 H Seg Neutrophils % 72.0 H Seg Neuts % (Manual) Lymphocytes % (Manual) Monocytes % (Manual) Eosinophils % (Manual) Basophils % (Manual) Nucleated RBC % Seg Neutrophils # 10.0 H Seg Neutrophils # Man Lymphocytes # (Manual) Monocytes # (Manual) Eosinophils # (Manual) Basophils # (Manual) PT INR Fibrinogen dRVVT Confirm Interp Factor V Activity POC ABG pH POC ABG pCO2 POC ABG pO2 ABG pO2 ABG HCO3 ABG Base Excess ABG Hemoglobin Oxyhemoglobin Sodium 130 L D Potassium Chloride 92.4 L Carbon Dioxide 20 L BUN 50 H Creatinine 1.6 H Glucose 589 H* POC Glucose Lactic Acid Calcium 7.8 L D Phosphorus Magnesium 1.60 L Direct Bilirubin AST ALT Alkaline Phosphatase Lactate Dehydrogenase Troponin T C-Reactive Protein Total Protein Albumin Prealbumin Triglycerides Cholesterol LDL Cholesterol Direct HDL Cholesterol Urine pH Urine WBC (Auto) Urine Creatinine Urine Total Protein Fluid Total Protein Vancomycin Trough Rheumatoid Factor Complement C4 Miscellaneous Test Crossmatch 10/22/16 10/22/16 10/22/16 11:39 16:44 23:36 WBC RBC Hgb Hct MCV MCH MCHC RDW Plt Count Lymph % (Auto) [place] % (Auto) Lymph # [place] # Baso # Seg Neutrophils % Seg Neuts % (Manual) Lymphocytes % (Manual) Monocytes % (Manual) Eosinophils % (Manual) Basophils % (Manual) Nucleated RBC % Seg Neutrophils # Seg Neutrophils # Man Lymphocytes # (Manual) Monocytes # (Manual) Eosinophils # (Manual) Basophils # (Manual) PT INR Fibrinogen dRVVT Confirm Interp Factor V Activity POC ABG pH POC ABG pCO2 POC ABG pO2 ABG pO2 ABG HCO3 ABG Base Excess ABG Hemoglobin Oxyhemoglobin Sodium Potassium Chloride Carbon Dioxide BUN Creatinine Glucose POC Glucose 142 H 163 H 123 H Lactic Acid Calcium Phosphorus Magnesium Direct Bilirubin AST ALT Alkaline Phosphatase Lactate Dehydrogenase Troponin T C-Reactive Protein Total Protein Albumin Prealbumin Triglycerides Cholesterol LDL Cholesterol Direct HDL Cholesterol Urine pH Urine WBC (Auto) Urine Creatinine Urine Total Protein Fluid Total Protein Vancomycin Trough Rheumatoid Factor Complement C4 Miscellaneous Test Crossmatch 10/23/16 10/23/16 10/23/16 04:58 06:00 12:12 WBC RBC Hgb Hct MCV MCH MCHC RDW Plt Count Lymph % (Auto) [place] % (Auto) Lymph # [place] # Baso # Seg Neutrophils % Seg Neuts % (Manual) Lymphocytes % (Manual) Monocytes % (Manual) Eosinophils % (Manual) Basophils % (Manual) Nucleated RBC % Seg Neutrophils # Seg Neutrophils # Man Lymphocytes # (Manual) Monocytes # (Manual) Eosinophils # (Manual) Basophils # (Manual) PT INR Fibrinogen dRVVT Confirm Interp Factor V Activity POC ABG pH POC ABG pCO2 POC ABG pO2 ABG pO2 ABG HCO3 ABG Base Excess ABG Hemoglobin Oxyhemoglobin Sodium 133 L Potassium 3.5 L Chloride 96.1 L Carbon Dioxide 18 L BUN 76 H Creatinine 2.1 H Glucose POC Glucose 133 H 138 H Lactic Acid Calcium 8.3 L Phosphorus Magnesium Direct Bilirubin AST ALT Alkaline Phosphatase Lactate Dehydrogenase Troponin T C-Reactive Protein Total Protein Albumin Prealbumin Triglycerides Cholesterol LDL Cholesterol Direct HDL Cholesterol Urine pH Urine WBC (Auto) Urine Creatinine Urine Total Protein Fluid Total Protein Vancomycin Trough Rheumatoid Factor Complement C4 Miscellaneous Test Crossmatch 10/23/16 10/23/16 10/24/16 16:53 23:37 04:00 WBC RBC Hgb Hct MCV MCH MCHC RDW Plt Count Lymph % (Auto) [place] % (Auto) Lymph # [place] # Baso # Seg Neutrophils % Seg Neuts % (Manual) Lymphocytes % (Manual) Monocytes % (Manual) Eosinophils % (Manual) Basophils % (Manual) Nucleated RBC % Seg Neutrophils # Seg Neutrophils # Man Lymphocytes # (Manual) Monocytes # (Manual) Eosinophils # (Manual) Basophils # (Manual) PT INR Fibrinogen dRVVT Confirm Interp Factor V Activity POC ABG pH POC ABG pCO2 POC ABG pO2 ABG pO2 ABG HCO3 ABG Base Excess ABG Hemoglobin Oxyhemoglobin Sodium 131 L Potassium Chloride 94.5 L Carbon Dioxide 19 L BUN 97 H Creatinine 2.6 H Glucose 110 H POC Glucose 125 H 123 H Lactic Acid Calcium 8.3 L Phosphorus Magnesium Direct Bilirubin AST ALT Alkaline Phosphatase Lactate Dehydrogenase Troponin T C-Reactive Protein Total Protein Albumin Prealbumin Triglycerides Cholesterol LDL Cholesterol Direct HDL Cholesterol Urine pH Urine WBC (Auto) Urine Creatinine Urine Total Protein Fluid Total Protein Vancomycin Trough Rheumatoid Factor Complement C4 Miscellaneous Test Crossmatch 10/24/16 10/24/16 10/24/16 07:49 11:39 17:52 WBC RBC Hgb 6.0 L Hct 19.7 L* MCV MCH MCHC RDW Plt Count Lymph % (Auto) [place] % (Auto) Lymph # [place] # Baso # Seg Neutrophils % Seg Neuts % (Manual) Lymphocytes % (Manual) Monocytes % (Manual) Eosinophils % (Manual) Basophils % (Manual) Nucleated RBC % Seg Neutrophils # Seg Neutrophils # Man Lymphocytes # (Manual) Monocytes # (Manual) Eosinophils # (Manual) Basophils # (Manual) PT INR Fibrinogen dRVVT Confirm Interp Factor V Activity POC ABG pH POC ABG pCO2 POC ABG pO2 ABG pO2 ABG HCO3 ABG Base Excess ABG Hemoglobin Oxyhemoglobin Sodium Potassium Chloride Carbon Dioxide BUN Creatinine Glucose POC Glucose 106 H 158 H Lactic Acid Calcium Phosphorus Magnesium Direct Bilirubin AST ALT Alkaline Phosphatase Lactate Dehydrogenase Troponin T C-Reactive Protein Total Protein Albumin Prealbumin Triglycerides Cholesterol LDL Cholesterol Direct HDL Cholesterol Urine pH Urine WBC (Auto) Urine Creatinine Urine Total Protein Fluid Total Protein Vancomycin Trough Rheumatoid Factor Complement C4 Miscellaneous Test Crossmatch 10/24/16 10/24/16 10/24/16 20:00 22:27 Unknown WBC RBC Hgb 9.4 L D Hct 27.5 L D MCV MCH MCHC RDW Plt Count Lymph % (Auto) [place] % (Auto) Lymph # [place] # Baso # Seg Neutrophils % Seg Neuts % (Manual) Lymphocytes % (Manual) Monocytes % (Manual) Eosinophils % (Manual) Basophils % (Manual) Nucleated RBC % Seg Neutrophils # Seg Neutrophils # Man Lymphocytes # (Manual) Monocytes # (Manual) Eosinophils # (Manual) Basophils # (Manual) PT INR Fibrinogen dRVVT Confirm Interp Factor V Activity POC ABG pH POC ABG pCO2 POC ABG pO2 ABG pO2 ABG HCO3 ABG Base Excess ABG Hemoglobin Oxyhemoglobin Sodium Potassium Chloride Carbon Dioxide BUN Creatinine Glucose POC Glucose 125 H Lactic Acid Calcium Phosphorus Magnesium Direct Bilirubin AST ALT Alkaline Phosphatase Lactate Dehydrogenase Troponin T C-Reactive Protein Total Protein Albumin Prealbumin Triglycerides Cholesterol LDL Cholesterol Direct HDL Cholesterol Urine pH Urine WBC (Auto) Urine Creatinine Urine Total Protein Fluid Total Protein Vancomycin Trough Rheumatoid Factor Complement C4 Miscellaneous Test Crossmatch See Detail 10/25/16 10/25/16 10/25/16 04:00 04:00 04:00 WBC 14.2 H RBC 2.98 L Hgb 9.0 L Hct 26.2 L MCV MCH MCHC RDW 16.6 H Plt Count Lymph % (Auto) [place] % (Auto) 10.7 H Lymph # [place] # 1.5 H Baso # Seg Neutrophils % 73.6 H Seg Neuts % (Manual) Lymphocytes % (Manual) Monocytes % (Manual) Eosinophils % (Manual) Basophils % (Manual) Nucleated RBC % Seg Neutrophils # 10.5 H Seg Neutrophils # Man Lymphocytes # (Manual) Monocytes # (Manual) Eosinophils # (Manual) Basophils # (Manual) PT INR Fibrinogen dRVVT Confirm Interp Factor V Activity POC ABG pH POC ABG pCO2 POC ABG pO2 ABG pO2 ABG HCO3 ABG Base Excess ABG Hemoglobin Oxyhemoglobin Sodium 132 L Potassium Chloride 94.7 L Carbon Dioxide BUN 51 H Creatinine 1.6 H Glucose 130 H POC Glucose Lactic Acid Calcium 8.3 L Phosphorus 1.60 L D Magnesium Direct Bilirubin AST ALT Alkaline Phosphatase Lactate Dehydrogenase Troponin T C-Reactive Protein Total Protein Albumin Prealbumin Triglycerides Cholesterol LDL Cholesterol Direct HDL Cholesterol Urine pH Urine WBC (Auto) Urine Creatinine Urine Total Protein Fluid Total Protein Vancomycin Trough Rheumatoid Factor Complement C4 Miscellaneous Test Crossmatch 10/25/16 10/25/16 10/25/16 04:32 11:48 17:22 WBC RBC Hgb Hct MCV MCH MCHC RDW Plt Count Lymph % (Auto) [place] % (Auto) Lymph # [place] # Baso # Seg Neutrophils % Seg Neuts % (Manual) Lymphocytes % (Manual) Monocytes % (Manual) Eosinophils % (Manual) Basophils % (Manual) Nucleated RBC % Seg Neutrophils # Seg Neutrophils # Man Lymphocytes # (Manual) Monocytes # (Manual) Eosinophils # (Manual) Basophils # (Manual) PT INR Fibrinogen dRVVT Confirm Interp Factor V Activity POC ABG pH POC ABG pCO2 POC ABG pO2 ABG pO2 ABG HCO3 ABG Base Excess ABG Hemoglobin Oxyhemoglobin Sodium Potassium Chloride Carbon Dioxide BUN Creatinine Glucose POC Glucose 124 H 171 H 120 H Lactic Acid Calcium Phosphorus Magnesium Direct Bilirubin AST ALT Alkaline Phosphatase Lactate Dehydrogenase Troponin T C-Reactive Protein Total Protein Albumin Prealbumin Triglycerides Cholesterol LDL Cholesterol Direct HDL Cholesterol Urine pH Urine WBC (Auto) Urine Creatinine Urine Total Protein Fluid Total Protein Vancomycin Trough Rheumatoid Factor Complement C4 Miscellaneous Test Crossmatch 10/26/16 10/26/16 10/26/16 04:54 07:06 07:06 WBC 16.9 H RBC 3.06 L Hgb 9.1 L Hct 26.9 L MCV MCH MCHC RDW 16.9 H Plt Count Lymph % (Auto) [place] % (Auto) Lymph # [place] # Baso # Seg Neutrophils % Seg Neuts % (Manual) 71.0 H Lymphocytes % (Manual) 5.0 L Monocytes % (Manual) 12.0 H Eosinophils % (Manual) Basophils % (Manual) Nucleated RBC % Seg Neutrophils # Seg Neutrophils # Man 12.0 H Lymphocytes # (Manual) 0.8 L Monocytes # (Manual) 2.0 H Eosinophils # (Manual) Basophils # (Manual) PT INR Fibrinogen dRVVT Confirm Interp Factor V Activity POC ABG pH POC ABG pCO2 POC ABG pO2 ABG pO2 ABG HCO3 ABG Base Excess ABG Hemoglobin Oxyhemoglobin Sodium 135 L Potassium Chloride 97.1 L Carbon Dioxide BUN 73 H Creatinine 2.2 H Glucose 117 H POC Glucose 123 H Lactic Acid Calcium Phosphorus 1.70 L Magnesium Direct Bilirubin AST ALT Alkaline Phosphatase Lactate Dehydrogenase Troponin T C-Reactive Protein Total Protein Albumin Prealbumin Triglycerides Cholesterol LDL Cholesterol Direct HDL Cholesterol Urine pH Urine WBC (Auto) Urine Creatinine Urine Total Protein Fluid Total Protein Vancomycin Trough Rheumatoid Factor Complement C4 Miscellaneous Test Crossmatch 10/26/16 10/26/16 10/26/16 12:12 17:29 23:42 WBC RBC Hgb Hct MCV MCH MCHC RDW Plt Count Lymph % (Auto) [place] % (Auto) Lymph # [place] # Baso # Seg Neutrophils % Seg Neuts % (Manual) Lymphocytes % (Manual) Monocytes % (Manual) Eosinophils % (Manual) Basophils % (Manual) Nucleated RBC % Seg Neutrophils # Seg Neutrophils # Man Lymphocytes # (Manual) Monocytes # (Manual) Eosinophils # (Manual) Basophils # (Manual) PT INR Fibrinogen dRVVT Confirm Interp Factor V Activity POC ABG pH POC ABG pCO2 POC ABG pO2 ABG pO2 ABG HCO3 ABG Base Excess ABG Hemoglobin Oxyhemoglobin Sodium Potassium Chloride Carbon Dioxide BUN Creatinine Glucose POC Glucose 126 H 161 H 118 H Lactic Acid Calcium Phosphorus Magnesium Direct Bilirubin AST ALT Alkaline Phosphatase Lactate Dehydrogenase Troponin T C-Reactive Protein Total Protein Albumin Prealbumin Triglycerides Cholesterol LDL Cholesterol Direct HDL Cholesterol Urine pH Urine WBC (Auto) Urine Creatinine Urine Total Protein Fluid Total Protein Vancomycin Trough Rheumatoid Factor Complement C4 Miscellaneous Test Crossmatch 10/27/16 10/27/16 10/27/16 05:03 06:30 06:30 WBC 13.9 H RBC 3.09 L Hgb 9.2 L Hct 27.5 L MCV MCH MCHC RDW 17.0 H Plt Count Lymph % (Auto) [place] % (Auto) Lymph # [place] # Baso # Seg Neutrophils % Seg Neuts % (Manual) 78.0 H Lymphocytes % (Manual) Monocytes % (Manual) Eosinophils % (Manual) Basophils % (Manual) Nucleated RBC % 2.0 H Seg Neutrophils # Seg Neutrophils # Man 10.8 H Lymphocytes # (Manual) Monocytes # (Manual) 1.0 H Eosinophils # (Manual) Basophils # (Manual) PT INR Fibrinogen dRVVT Confirm Interp Factor V Activity POC ABG pH POC ABG pCO2 POC ABG pO2 ABG pO2 ABG HCO3 ABG Base Excess ABG Hemoglobin Oxyhemoglobin Sodium Potassium Chloride Carbon Dioxide BUN 40 H Creatinine 1.5 H Glucose 135 H POC Glucose 107 H Lactic Acid Calcium 8.3 L Phosphorus 1.30 L D Magnesium Direct Bilirubin AST ALT Alkaline Phosphatase Lactate Dehydrogenase Troponin T C-Reactive Protein Total Protein Albumin Prealbumin Triglycerides Cholesterol LDL Cholesterol Direct HDL Cholesterol Urine pH Urine WBC (Auto) Urine Creatinine Urine Total Protein Fluid Total Protein Vancomycin Trough Rheumatoid Factor Complement C4 Miscellaneous Test Crossmatch 10/27/16 10/27/16 10/27/16 13:27 18:07 23:40 WBC RBC Hgb Hct MCV MCH MCHC RDW Plt Count Lymph % (Auto) [place] % (Auto) Lymph # [place] # Baso # Seg Neutrophils % Seg Neuts % (Manual) Lymphocytes % (Manual) Monocytes % (Manual) Eosinophils % (Manual) Basophils % (Manual) Nucleated RBC % Seg Neutrophils # Seg Neutrophils # Man Lymphocytes # (Manual) Monocytes # (Manual) Eosinophils # (Manual) Basophils # (Manual) PT INR Fibrinogen dRVVT Confirm Interp Factor V Activity POC ABG pH POC ABG pCO2 POC ABG pO2 ABG pO2 ABG HCO3 ABG Base Excess ABG Hemoglobin Oxyhemoglobin Sodium Potassium Chloride Carbon Dioxide BUN Creatinine Glucose POC Glucose 117 H 121 H 118 H Lactic Acid Calcium Phosphorus Magnesium Direct Bilirubin AST ALT Alkaline Phosphatase Lactate Dehydrogenase Troponin T C-Reactive Protein Total Protein Albumin Prealbumin Triglycerides Cholesterol LDL Cholesterol Direct HDL Cholesterol Urine pH Urine WBC (Auto) Urine Creatinine Urine Total Protein Fluid Total Protein Vancomycin Trough Rheumatoid Factor Complement C4 Miscellaneous Test Crossmatch 10/28/16 10/28/16 10/28/16 05:48 06:45 06:45 WBC 14.7 H RBC 3.05 L Hgb 9.0 L Hct 26.9 L MCV MCH MCHC RDW 16.8 H Plt Count Lymph % (Auto) 8.2 L [place] % (Auto) 8.4 H Lymph # [place] # 1.2 H Baso # Seg Neutrophils % 81.9 H Seg Neuts % (Manual) Lymphocytes % (Manual) Monocytes % (Manual) Eosinophils % (Manual) Basophils % (Manual) Nucleated RBC % Seg Neutrophils # 12.1 H Seg Neutrophils # Man Lymphocytes # (Manual) Monocytes # (Manual) Eosinophils # (Manual) Basophils # (Manual) PT INR Fibrinogen dRVVT Confirm Interp Factor V Activity POC ABG pH POC ABG pCO2 POC ABG pO2 ABG pO2 ABG HCO3 ABG Base Excess ABG Hemoglobin Oxyhemoglobin Sodium Potassium Chloride Carbon Dioxide BUN 60 H Creatinine 1.9 H Glucose 120 H POC Glucose 114 H Lactic Acid Calcium Phosphorus Magnesium Direct Bilirubin AST ALT Alkaline Phosphatase Lactate Dehydrogenase Troponin T C-Reactive Protein Total Protein Albumin Prealbumin Triglycerides Cholesterol LDL Cholesterol Direct HDL Cholesterol Urine pH Urine WBC (Auto) Urine Creatinine Urine Total Protein Fluid Total Protein Vancomycin Trough Rheumatoid Factor Complement C4 Miscellaneous Test Crossmatch 10/28/16 10/28/16 10/29/16 17:08 23:50 05:10 WBC RBC Hgb Hct MCV MCH MCHC RDW Plt Count Lymph % (Auto) [place] % (Auto) Lymph # [place] # Baso # Seg Neutrophils % Seg Neuts % (Manual) Lymphocytes % (Manual) Monocytes % (Manual) Eosinophils % (Manual) Basophils % (Manual) Nucleated RBC % Seg Neutrophils # Seg Neutrophils # Man Lymphocytes # (Manual) Monocytes # (Manual) Eosinophils # (Manual) Basophils # (Manual) PT INR Fibrinogen dRVVT Confirm Interp Factor V Activity POC ABG pH POC ABG pCO2 POC ABG pO2 ABG pO2 ABG HCO3 ABG Base Excess ABG Hemoglobin Oxyhemoglobin Sodium Potassium Chloride Carbon Dioxide BUN Creatinine Glucose POC Glucose 109 H 110 H 124 H Lactic Acid Calcium Phosphorus Magnesium Direct Bilirubin AST ALT Alkaline Phosphatase Lactate Dehydrogenase Troponin T C-Reactive Protein Total Protein Albumin Prealbumin Triglycerides Cholesterol LDL Cholesterol Direct HDL Cholesterol Urine pH Urine WBC (Auto) Urine Creatinine Urine Total Protein Fluid Total Protein Vancomycin Trough Rheumatoid Factor Complement C4 Miscellaneous Test Crossmatch 10/29/16 10/29/16 10/29/16 07:45 07:45 12:19 WBC 14.7 H RBC 3.15 L Hgb 9.3 L Hct 28.9 L MCV MCH MCHC RDW 17.0 H Plt Count Lymph % (Auto) 11.9 L [place] % (Auto) 8.6 H Lymph # [place] # 1.3 H Baso # Seg Neutrophils % 78.1 H Seg Neuts % (Manual) Lymphocytes % (Manual) Monocytes % (Manual) Eosinophils % (Manual) Basophils % (Manual) Nucleated RBC % Seg Neutrophils # 11.4 H Seg Neutrophils # Man Lymphocytes # (Manual) Monocytes # (Manual) Eosinophils # (Manual) Basophils # (Manual) PT INR Fibrinogen dRVVT Confirm Interp Factor V Activity POC ABG pH POC ABG pCO2 POC ABG pO2 ABG pO2 ABG HCO3 ABG Base Excess ABG Hemoglobin Oxyhemoglobin Sodium Potassium 5.1 H Chloride Carbon Dioxide 19 L BUN 78 H Creatinine 2.2 H Glucose 116 H POC Glucose 118 H Lactic Acid Calcium Phosphorus Magnesium Direct Bilirubin AST ALT Alkaline Phosphatase Lactate Dehydrogenase Troponin T C-Reactive Protein Total Protein Albumin Prealbumin Triglycerides Cholesterol LDL Cholesterol Direct HDL Cholesterol Urine pH Urine WBC (Auto) Urine Creatinine Urine Total Protein Fluid Total Protein Vancomycin Trough Rheumatoid Factor Complement C4 Miscellaneous Test Crossmatch 10/29/16 10/30/16 10/30/16 17:49 01:52 03:28 WBC RBC Hgb Hct MCV MCH MCHC RDW Plt Count Lymph % (Auto) [place] % (Auto) Lymph # [place] # Baso # Seg Neutrophils % Seg Neuts % (Manual) Lymphocytes % (Manual) Monocytes % (Manual) Eosinophils % (Manual) Basophils % (Manual) Nucleated RBC % Seg Neutrophils # Seg Neutrophils # Man Lymphocytes # (Manual) Monocytes # (Manual) Eosinophils # (Manual) Basophils # (Manual) PT INR Fibrinogen dRVVT Confirm Interp Factor V Activity POC ABG pH POC ABG pCO2 POC ABG pO2 ABG pO2 ABG HCO3 ABG Base Excess ABG Hemoglobin Oxyhemoglobin Sodium Potassium 5.4 H Chloride 97.5 L Carbon Dioxide 19 L BUN 90 H Creatinine 2.5 H Glucose POC Glucose 120 H 129 H Lactic Acid Calcium Phosphorus 5.20 H Magnesium Direct Bilirubin AST ALT Alkaline Phosphatase Lactate Dehydrogenase Troponin T C-Reactive Protein Total Protein Albumin Prealbumin Triglycerides Cholesterol LDL Cholesterol Direct HDL Cholesterol Urine pH Urine WBC (Auto) Urine Creatinine Urine Total Protein Fluid Total Protein Vancomycin Trough Rheumatoid Factor Complement C4 Miscellaneous Test Crossmatch 10/30/16 10/30/16 10/30/16 03:28 08:19 08:19 WBC 11.6 H 15.9 H RBC 2.75 L 2.82 L Hgb 7.9 L 8.3 L Hct 24.2 L 25.2 L MCV MCH MCHC RDW 16.7 H 17.2 H Plt Count Lymph % (Auto) [place] % (Auto) 9.8 H Lymph # [place] # 1.1 H Baso # Seg Neutrophils % 74.2 H Seg Neuts % (Manual) Lymphocytes % (Manual) Monocytes % (Manual) Eosinophils % (Manual) Basophils % (Manual) Nucleated RBC % Seg Neutrophils # 8.6 H Seg Neutrophils # Man Lymphocytes # (Manual) Monocytes # (Manual) Eosinophils # (Manual) Basophils # (Manual) PT INR Fibrinogen dRVVT Confirm Interp Factor V Activity POC ABG pH POC ABG pCO2 POC ABG pO2 ABG pO2 ABG HCO3 ABG Base Excess ABG Hemoglobin Oxyhemoglobin Sodium Potassium 5.3 H Chloride 97.4 L Carbon Dioxide 19 L BUN 93 H Creatinine 2.6 H Glucose POC Glucose Lactic Acid Calcium Phosphorus Magnesium Direct Bilirubin AST ALT Alkaline Phosphatase Lactate Dehydrogenase Troponin T C-Reactive Protein Total Protein Albumin Prealbumin Triglycerides Cholesterol LDL Cholesterol Direct HDL Cholesterol Urine pH Urine WBC (Auto) Urine Creatinine Urine Total Protein Fluid Total Protein Vancomycin Trough Rheumatoid Factor Complement C4 Miscellaneous Test Crossmatch 10/30/16 10/30/16 10/31/16 17:11 23:56 00:40 WBC RBC Hgb Hct MCV MCH MCHC RDW Plt Count Lymph % (Auto) [place] % (Auto) Lymph # [place] # Baso # Seg Neutrophils % Seg Neuts % (Manual) Lymphocytes % (Manual) Monocytes % (Manual) Eosinophils % (Manual) Basophils % (Manual) Nucleated RBC % Seg Neutrophils # Seg Neutrophils # Man Lymphocytes # (Manual) Monocytes # (Manual) Eosinophils # (Manual) Basophils # (Manual) PT INR Fibrinogen dRVVT Confirm Interp Factor V Activity POC ABG pH POC ABG pCO2 POC ABG pO2 ABG pO2 ABG HCO3 ABG Base Excess ABG Hemoglobin Oxyhemoglobin Sodium Potassium Chloride Carbon Dioxide BUN Creatinine Glucose POC Glucose 106 H 117 H 120 H Lactic Acid Calcium Phosphorus Magnesium Direct Bilirubin AST ALT Alkaline Phosphatase Lactate Dehydrogenase Troponin T C-Reactive Protein Total Protein Albumin Prealbumin Triglycerides Cholesterol LDL Cholesterol Direct HDL Cholesterol Urine pH Urine WBC (Auto) Urine Creatinine Urine Total Protein Fluid Total Protein Vancomycin Trough Rheumatoid Factor Complement C4 Miscellaneous Test Crossmatch 10/31/16 10/31/16 10/31/16 05:43 07:15 07:15 WBC 12.1 H RBC 2.63 L Hgb 7.7 L Hct 23.3 L MCV MCH MCHC RDW 16.7 H Plt Count Lymph % (Auto) 11.7 L [place] % (Auto) 7.7 H Lymph # [place] # 0.9 H Baso # Seg Neutrophils % 78.0 H Seg Neuts % (Manual) Lymphocytes % (Manual) Monocytes % (Manual) Eosinophils % (Manual) Basophils % (Manual) Nucleated RBC % Seg Neutrophils # 9.4 H Seg Neutrophils # Man Lymphocytes # (Manual) Monocytes # (Manual) Eosinophils # (Manual) Basophils # (Manual) PT INR Fibrinogen dRVVT Confirm Interp Factor V Activity POC ABG pH POC ABG pCO2 POC ABG pO2 ABG pO2 ABG HCO3 ABG Base Excess ABG Hemoglobin Oxyhemoglobin Sodium Potassium Chloride 96.4 L Carbon Dioxide 21 L BUN 99 H Creatinine 2.6 H Glucose 144 H POC Glucose 125 H Lactic Acid Calcium Phosphorus 4.80 H Magnesium Direct Bilirubin AST ALT Alkaline Phosphatase Lactate Dehydrogenase Troponin T C-Reactive Protein Total Protein Albumin Prealbumin Triglycerides Cholesterol LDL Cholesterol Direct HDL Cholesterol Urine pH Urine WBC (Auto) Urine Creatinine Urine Total Protein Fluid Total Protein Vancomycin Trough Rheumatoid Factor Complement C4 Miscellaneous Test Crossmatch 10/31/16 10/31/16 11/01/16 11:46 18:34 00:20 WBC RBC Hgb Hct MCV MCH MCHC RDW Plt Count Lymph % (Auto) [place] % (Auto) Lymph # [place] # Baso # Seg Neutrophils % Seg Neuts % (Manual) Lymphocytes % (Manual) Monocytes % (Manual) Eosinophils % (Manual) Basophils % (Manual) Nucleated RBC % Seg Neutrophils # Seg Neutrophils # Man Lymphocytes # (Manual) Monocytes # (Manual) Eosinophils # (Manual) Basophils # (Manual) PT INR Fibrinogen dRVVT Confirm Interp Factor V Activity POC ABG pH POC ABG pCO2 POC ABG pO2 ABG pO2 ABG HCO3 ABG Base Excess ABG Hemoglobin Oxyhemoglobin Sodium Potassium Chloride Carbon Dioxide BUN Creatinine Glucose POC Glucose 159 H 140 H 132 H Lactic Acid Calcium Phosphorus Magnesium Direct Bilirubin AST ALT Alkaline Phosphatase Lactate Dehydrogenase Troponin T C-Reactive Protein Total Protein Albumin Prealbumin Triglycerides Cholesterol LDL Cholesterol Direct HDL Cholesterol Urine pH Urine WBC (Auto) Urine Creatinine Urine Total Protein Fluid Total Protein Vancomycin Trough Rheumatoid Factor Complement C4 Miscellaneous Test Crossmatch 11/01/16 11/01/16 11/01/16 04:55 04:55 06:11 WBC 11.2 H RBC 2.68 L Hgb 7.5 L Hct 23.7 L MCV MCH MCHC RDW 16.1 H Plt Count Lymph % (Auto) [place] % (Auto) 9.8 H Lymph # [place] # 1.1 H Baso # Seg Neutrophils % 70.8 H Seg Neuts % (Manual) Lymphocytes % (Manual) Monocytes % (Manual) Eosinophils % (Manual) Basophils % (Manual) Nucleated RBC % Seg Neutrophils # 7.9 H Seg Neutrophils # Man Lymphocytes # (Manual) Monocytes # (Manual) Eosinophils # (Manual) Basophils # (Manual) PT INR Fibrinogen dRVVT Confirm Interp Factor V Activity POC ABG pH POC ABG pCO2 POC ABG pO2 ABG pO2 ABG HCO3 ABG Base Excess ABG Hemoglobin Oxyhemoglobin Sodium Potassium 3.3 L D Chloride Carbon Dioxide BUN 61 H Creatinine 1.9 H Glucose 114 H POC Glucose 115 H Lactic Acid Calcium Phosphorus 1.80 L D Magnesium Direct Bilirubin AST ALT Alkaline Phosphatase Lactate Dehydrogenase Troponin T C-Reactive Protein Total Protein Albumin Prealbumin Triglycerides Cholesterol LDL Cholesterol Direct HDL Cholesterol Urine pH Urine WBC (Auto) Urine Creatinine Urine Total Protein Fluid Total Protein Vancomycin Trough Rheumatoid Factor Complement C4 Miscellaneous Test Crossmatch 11/01/16 11/01/16 11/01/16 12:29 18:23 23:58 WBC RBC Hgb Hct MCV MCH MCHC RDW Plt Count Lymph % (Auto) [place] % (Auto) Lymph # [place] # Baso # Seg Neutrophils % Seg Neuts % (Manual) Lymphocytes % (Manual) Monocytes % (Manual) Eosinophils % (Manual) Basophils % (Manual) Nucleated RBC % Seg Neutrophils # Seg Neutrophils # Man Lymphocytes # (Manual) Monocytes # (Manual) Eosinophils # (Manual) Basophils # (Manual) PT INR Fibrinogen dRVVT Confirm Interp Factor V Activity POC ABG pH POC ABG pCO2 POC ABG pO2 ABG pO2 ABG HCO3 ABG Base Excess ABG Hemoglobin Oxyhemoglobin Sodium Potassium Chloride Carbon Dioxide BUN Creatinine Glucose POC Glucose 142 H 143 H 128 H Lactic Acid Calcium Phosphorus Magnesium Direct Bilirubin AST ALT Alkaline Phosphatase Lactate Dehydrogenase Troponin T C-Reactive Protein Total Protein Albumin Prealbumin Triglycerides Cholesterol LDL Cholesterol Direct HDL Cholesterol Urine pH Urine WBC (Auto) Urine Creatinine Urine Total Protein Fluid Total Protein Vancomycin Trough Rheumatoid Factor Complement C4 Miscellaneous Test Crossmatch 11/02/16 11/02/16 11/02/16 04:16 05:29 11:58 WBC RBC Hgb Hct MCV MCH MCHC RDW Plt Count Lymph % (Auto) [place] % (Auto) Lymph # [place] # Baso # Seg Neutrophils % Seg Neuts % (Manual) Lymphocytes % (Manual) Monocytes % (Manual) Eosinophils % (Manual) Basophils % (Manual) Nucleated RBC % Seg Neutrophils # Seg Neutrophils # Man Lymphocytes # (Manual) Monocytes # (Manual) Eosinophils # (Manual) Basophils # (Manual) PT INR Fibrinogen dRVVT Confirm Interp Factor V Activity POC ABG pH POC ABG pCO2 POC ABG pO2 ABG pO2 ABG HCO3 ABG Base Excess ABG Hemoglobin Oxyhemoglobin Sodium Potassium 3.1 L Chloride Carbon Dioxide BUN 73 H Creatinine 2.3 H Glucose 112 H POC Glucose 135 H 149 H Lactic Acid Calcium Phosphorus Magnesium Direct Bilirubin AST ALT Alkaline Phosphatase Lactate Dehydrogenase Troponin T C-Reactive Protein Total Protein Albumin Prealbumin Triglycerides Cholesterol LDL Cholesterol Direct HDL Cholesterol Urine pH Urine WBC (Auto) Urine Creatinine Urine Total Protein Fluid Total Protein Vancomycin Trough Rheumatoid Factor Complement C4 Miscellaneous Test Crossmatch 11/02/16 11/02/16 11/03/16 17:42 22:54 06:00 WBC RBC Hgb Hct MCV MCH MCHC RDW Plt Count Lymph % (Auto) [place] % (Auto) Lymph # [place] # Baso # Seg Neutrophils % Seg Neuts % (Manual) Lymphocytes % (Manual) Monocytes % (Manual) Eosinophils % (Manual) Basophils % (Manual) Nucleated RBC % Seg Neutrophils # Seg Neutrophils # Man Lymphocytes # (Manual) Monocytes # (Manual) Eosinophils # (Manual) Basophils # (Manual) PT INR Fibrinogen dRVVT Confirm Interp Factor V Activity POC ABG pH POC ABG pCO2 POC ABG pO2 ABG pO2 ABG HCO3 ABG Base Excess ABG Hemoglobin Oxyhemoglobin Sodium Potassium Chloride 96.7 L Carbon Dioxide BUN 41 H Creatinine 1.5 H Glucose 145 H POC Glucose 182 H 115 H Lactic Acid Calcium Phosphorus 1.60 L D Magnesium 1.50 L Direct Bilirubin AST ALT Alkaline Phosphatase Lactate Dehydrogenase Troponin T C-Reactive Protein Total Protein Albumin Prealbumin Triglycerides Cholesterol LDL Cholesterol Direct HDL Cholesterol Urine pH Urine WBC (Auto) Urine Creatinine Urine Total Protein Fluid Total Protein Vancomycin Trough Rheumatoid Factor Complement C4 Miscellaneous Test Crossmatch 11/03/16 11/03/16 11/03/16 11:53 17:45 23:37 WBC RBC Hgb Hct MCV MCH MCHC RDW Plt Count Lymph % (Auto) [place] % (Auto) Lymph # [place] # Baso # Seg Neutrophils % Seg Neuts % (Manual) Lymphocytes % (Manual) Monocytes % (Manual) Eosinophils % (Manual) Basophils % (Manual) Nucleated RBC % Seg Neutrophils # Seg Neutrophils # Man Lymphocytes # (Manual) Monocytes # (Manual) Eosinophils # (Manual) Basophils # (Manual) PT INR Fibrinogen dRVVT Confirm Interp Factor V Activity POC ABG pH POC ABG pCO2 POC ABG pO2 ABG pO2 ABG HCO3 ABG Base Excess ABG Hemoglobin Oxyhemoglobin Sodium Potassium Chloride Carbon Dioxide BUN Creatinine Glucose POC Glucose 131 H 134 H 113 H Lactic Acid Calcium Phosphorus Magnesium Direct Bilirubin AST ALT Alkaline Phosphatase Lactate Dehydrogenase Troponin T C-Reactive Protein Total Protein Albumin Prealbumin Triglycerides Cholesterol LDL Cholesterol Direct HDL Cholesterol Urine pH Urine WBC (Auto) Urine Creatinine Urine Total Protein Fluid Total Protein Vancomycin Trough Rheumatoid Factor Complement C4 Miscellaneous Test Crossmatch 11/04/16 11/04/16 11/04/16 05:41 06:00 12:10 WBC RBC Hgb Hct MCV MCH MCHC RDW Plt Count Lymph % (Auto) [place] % (Auto) Lymph # [place] # Baso # Seg Neutrophils % Seg Neuts % (Manual) Lymphocytes % (Manual) Monocytes % (Manual) Eosinophils % (Manual) Basophils % (Manual) Nucleated RBC % Seg Neutrophils # Seg Neutrophils # Man Lymphocytes # (Manual) Monocytes # (Manual) Eosinophils # (Manual) Basophils # (Manual) PT INR Fibrinogen dRVVT Confirm Interp Factor V Activity POC ABG pH POC ABG pCO2 POC ABG pO2 ABG pO2 ABG HCO3 ABG Base Excess ABG Hemoglobin Oxyhemoglobin Sodium Potassium Chloride 96.7 L Carbon Dioxide BUN 52 H Creatinine 1.9 H Glucose 126 H POC Glucose 137 H 191 H Lactic Acid Calcium Phosphorus Magnesium Direct Bilirubin AST ALT Alkaline Phosphatase Lactate Dehydrogenase Troponin T C-Reactive Protein Total Protein Albumin Prealbumin Triglycerides Cholesterol LDL Cholesterol Direct HDL Cholesterol Urine pH Urine WBC (Auto) Urine Creatinine Urine Total Protein Fluid Total Protein Vancomycin Trough Rheumatoid Factor Complement C4 Miscellaneous Test Crossmatch 11/04/16 11/05/16 11/05/16 22:57 03:10 05:10 WBC RBC Hgb Hct MCV MCH MCHC RDW Plt Count Lymph % (Auto) [place] % (Auto) Lymph # [place] # Baso # Seg Neutrophils % Seg Neuts % (Manual) Lymphocytes % (Manual) Monocytes % (Manual) Eosinophils % (Manual) Basophils % (Manual) Nucleated RBC % Seg Neutrophils # Seg Neutrophils # Man Lymphocytes # (Manual) Monocytes # (Manual) Eosinophils # (Manual) Basophils # (Manual) PT INR Fibrinogen dRVVT Confirm Interp Factor V Activity POC ABG pH POC ABG pCO2 POC ABG pO2 ABG pO2 ABG HCO3 ABG Base Excess ABG Hemoglobin Oxyhemoglobin Sodium 136 L Potassium Chloride 97.2 L Carbon Dioxide BUN 32 H Creatinine 1.3 H Glucose 123 H POC Glucose 125 H 108 H Lactic Acid Calcium 7.8 L Phosphorus Magnesium Direct Bilirubin AST ALT Alkaline Phosphatase Lactate Dehydrogenase Troponin T C-Reactive Protein Total Protein Albumin Prealbumin Triglycerides Cholesterol LDL Cholesterol Direct HDL Cholesterol Urine pH Urine WBC (Auto) Urine Creatinine Urine Total Protein Fluid Total Protein Vancomycin Trough Rheumatoid Factor Complement C4 Miscellaneous Test Crossmatch 11/05/16 11/05/16 11/05/16 12:23 13:09 13:25 WBC RBC Hgb Hct MCV MCH MCHC RDW Plt Count Lymph % (Auto) [place] % (Auto) Lymph # [place] # Baso # Seg Neutrophils % Seg Neuts % (Manual) Lymphocytes % (Manual) Monocytes % (Manual) Eosinophils % (Manual) Basophils % (Manual) Nucleated RBC % Seg Neutrophils # Seg Neutrophils # Man Lymphocytes # (Manual) Monocytes # (Manual) Eosinophils # (Manual) Basophils # (Manual) PT INR Fibrinogen dRVVT Confirm Interp Factor V Activity POC ABG pH POC ABG pCO2 POC ABG pO2 ABG pO2 ABG HCO3 ABG Base Excess ABG Hemoglobin Oxyhemoglobin Sodium Potassium Chloride Carbon Dioxide BUN Creatinine Glucose POC Glucose 124 H Lactic Acid Calcium Phosphorus Magnesium Direct Bilirubin AST ALT Alkaline Phosphatase Lactate Dehydrogenase Troponin T C-Reactive Protein 11.40 H Total Protein Albumin Prealbumin Triglycerides Cholesterol LDL Cholesterol Direct HDL Cholesterol Urine pH 9.0 H Urine WBC (Auto) Urine Creatinine Urine Total Protein Fluid Total Protein Vancomycin Trough Rheumatoid Factor Complement C4 Miscellaneous Test Crossmatch 11/05/16 11/05/16 11/05/16 13:25 17:54 23:42 WBC RBC Hgb Hct MCV MCH MCHC RDW Plt Count Lymph % (Auto) [place] % (Auto) Lymph # [place] # Baso # Seg Neutrophils % Seg Neuts % (Manual) Lymphocytes % (Manual) Monocytes % (Manual) Eosinophils % (Manual) Basophils % (Manual) Nucleated RBC % Seg Neutrophils # Seg Neutrophils # Man Lymphocytes # (Manual) Monocytes # (Manual) Eosinophils # (Manual) Basophils # (Manual) PT INR Fibrinogen dRVVT Confirm Interp Factor V Activity POC ABG pH POC ABG pCO2 POC ABG pO2 ABG pO2 ABG HCO3 ABG Base Excess ABG Hemoglobin Oxyhemoglobin Sodium Potassium Chloride Carbon Dioxide BUN Creatinine Glucose POC Glucose 114 H 134 H Lactic Acid Calcium Phosphorus Magnesium Direct Bilirubin AST ALT Alkaline Phosphatase Lactate Dehydrogenase Troponin T C-Reactive Protein Total Protein Albumin Prealbumin Triglycerides Cholesterol LDL Cholesterol Direct HDL Cholesterol Urine pH Urine WBC (Auto) Urine Creatinine Urine Total Protein Fluid Total Protein Vancomycin Trough Rheumatoid Factor Complement C4 Miscellaneous Test Flexitest 1 H Crossmatch 11/06/16 11/06/16 11/06/16 04:56 06:25 06:25 WBC RBC 2.50 L Hgb 7.3 L Hct 22.5 L MCV MCH MCHC RDW 16.9 H Plt Count Lymph % (Auto) [place] % (Auto) 10.5 H Lymph # [place] # 1.1 H Baso # Seg Neutrophils % Seg Neuts % (Manual) Lymphocytes % (Manual) Monocytes % (Manual) Eosinophils % (Manual) Basophils % (Manual) Nucleated RBC % Seg Neutrophils # Seg Neutrophils # Man Lymphocytes # (Manual) Monocytes # (Manual) Eosinophils # (Manual) Basophils # (Manual) PT INR Fibrinogen dRVVT Confirm Interp Factor V Activity POC ABG pH POC ABG pCO2 POC ABG pO2 ABG pO2 ABG HCO3 ABG Base Excess ABG Hemoglobin Oxyhemoglobin Sodium Potassium 5.1 H Chloride 95.9 L Carbon Dioxide BUN 52 H Creatinine 1.8 H Glucose 117 H POC Glucose 120 H Lactic Acid Calcium Phosphorus Magnesium Direct Bilirubin AST 103 H ALT 77 H Alkaline Phosphatase 285 H Lactate Dehydrogenase Troponin T C-Reactive Protein Total Protein 6.2 L Albumin 1.8 L Prealbumin 0.180 L Triglycerides Cholesterol LDL Cholesterol Direct HDL Cholesterol Urine pH Urine WBC (Auto) Urine Creatinine Urine Total Protein Fluid Total Protein Vancomycin Trough Rheumatoid Factor Complement C4 Miscellaneous Test Crossmatch 11/06/16 11/06/16 11/06/16 11:56 17:14 23:52 WBC RBC Hgb Hct MCV MCH MCHC RDW Plt Count Lymph % (Auto) [place] % (Auto) Lymph # [place] # Baso # Seg Neutrophils % Seg Neuts % (Manual) Lymphocytes % (Manual) Monocytes % (Manual) Eosinophils % (Manual) Basophils % (Manual) Nucleated RBC % Seg Neutrophils # Seg Neutrophils # Man Lymphocytes # (Manual) Monocytes # (Manual) Eosinophils # (Manual) Basophils # (Manual) PT INR Fibrinogen dRVVT Confirm Interp Factor V Activity POC ABG pH POC ABG pCO2 POC ABG pO2 ABG pO2 ABG HCO3 ABG Base Excess ABG Hemoglobin Oxyhemoglobin Sodium Potassium Chloride Carbon Dioxide BUN Creatinine Glucose POC Glucose 141 H 125 H 130 H Lactic Acid Calcium Phosphorus Magnesium Direct Bilirubin AST ALT Alkaline Phosphatase Lactate Dehydrogenase Troponin T C-Reactive Protein Total Protein Albumin Prealbumin Triglycerides Cholesterol LDL Cholesterol Direct HDL Cholesterol Urine pH Urine WBC (Auto) Urine Creatinine Urine Total Protein Fluid Total Protein Vancomycin Trough Rheumatoid Factor Complement C4 Miscellaneous Test Crossmatch 11/07/16 11/07/16 11/07/16 06:30 06:30 09:37 WBC RBC 2.18 L Hgb 6.3 L Hct 19.7 L* MCV MCH MCHC RDW 16.8 H Plt Count Lymph % (Auto) [place] % (Auto) 10.0 H Lymph # [place] # 1.0 H Baso # Seg Neutrophils % Seg Neuts % (Manual) Lymphocytes % (Manual) Monocytes % (Manual) Eosinophils % (Manual) Basophils % (Manual) Nucleated RBC % Seg Neutrophils # Seg Neutrophils # Man Lymphocytes # (Manual) Monocytes # (Manual) Eosinophils # (Manual) Basophils # (Manual) PT INR Fibrinogen dRVVT Confirm Interp Factor V Activity POC ABG pH POC ABG pCO2 POC ABG pO2 ABG pO2 ABG HCO3 ABG Base Excess ABG Hemoglobin Oxyhemoglobin Sodium 135 L Potassium Chloride 95.6 L Carbon Dioxide BUN 70 H Creatinine 2.0 H Glucose 126 H POC Glucose Lactic Acid Calcium Phosphorus Magnesium Direct Bilirubin AST ALT Alkaline Phosphatase Lactate Dehydrogenase Troponin T C-Reactive Protein Total Protein Albumin Prealbumin Triglycerides Cholesterol LDL Cholesterol Direct HDL Cholesterol Urine pH Urine WBC (Auto) Urine Creatinine Urine Total Protein Fluid Total Protein Vancomycin Trough Rheumatoid Factor Complement C4 Miscellaneous Test Crossmatch See Detail 11/07/16 11/07/16 11/07/16 12:52 18:51 21:26 WBC RBC Hgb Hct MCV MCH MCHC RDW Plt Count Lymph % (Auto) [place] % (Auto) Lymph # [place] # Baso # Seg Neutrophils % Seg Neuts % (Manual) Lymphocytes % (Manual) Monocytes % (Manual) Eosinophils % (Manual) Basophils % (Manual) Nucleated RBC % Seg Neutrophils # Seg Neutrophils # Man Lymphocytes # (Manual) Monocytes # (Manual) Eosinophils # (Manual) Basophils # (Manual) PT INR Fibrinogen dRVVT Confirm Interp Factor V Activity POC ABG pH 7.523 H POC ABG pCO2 34.6 L POC ABG pO2 53 L ABG pO2 ABG HCO3 ABG Base Excess ABG Hemoglobin Oxyhemoglobin Sodium Potassium Chloride Carbon Dioxide BUN Creatinine Glucose POC Glucose 142 H 155 H Lactic Acid Calcium Phosphorus Magnesium Direct Bilirubin AST ALT Alkaline Phosphatase Lactate Dehydrogenase Troponin T C-Reactive Protein Total Protein Albumin Prealbumin Triglycerides Cholesterol LDL Cholesterol Direct HDL Cholesterol Urine pH Urine WBC (Auto) Urine Creatinine Urine Total Protein Fluid Total Protein Vancomycin Trough Rheumatoid Factor Complement C4 Miscellaneous Test Crossmatch 11/07/16 11/08/16 11/08/16 21:34 13:03 23:37 WBC RBC 2.63 L Hgb 7.7 L Hct 22.7 L MCV MCH MCHC RDW 17.0 H Plt Count Lymph % (Auto) [place] % (Auto) Lymph # [place] # Baso # Seg Neutrophils % Seg Neuts % (Manual) Lymphocytes % (Manual) Monocytes % (Manual) Eosinophils % (Manual) Basophils % (Manual) Nucleated RBC % Seg Neutrophils # Seg Neutrophils # Man Lymphocytes # (Manual) Monocytes # (Manual) Eosinophils # (Manual) Basophils # (Manual) PT INR Fibrinogen dRVVT Confirm Interp Factor V Activity POC ABG pH 7.478 H POC ABG pCO2 34.0 L POC ABG pO2 50 L ABG pO2 ABG HCO3 ABG Base Excess ABG Hemoglobin Oxyhemoglobin Sodium Potassium Chloride Carbon Dioxide BUN Creatinine Glucose POC Glucose 113 H Lactic Acid Calcium Phosphorus Magnesium Direct Bilirubin AST ALT Alkaline Phosphatase Lactate Dehydrogenase Troponin T C-Reactive Protein Total Protein Albumin Prealbumin Triglycerides Cholesterol LDL Cholesterol Direct HDL Cholesterol Urine pH Urine WBC (Auto) Urine Creatinine Urine Total Protein Fluid Total Protein Vancomycin Trough Rheumatoid Factor Complement C4 Miscellaneous Test Crossmatch 11/09/16 11/09/16 11/09/16 04:35 10:15 18:21 WBC RBC 2.68 L Hgb 7.8 L Hct 23.3 L MCV MCH MCHC RDW 17.0 H Plt Count Lymph % (Auto) [place] % (Auto) 12.1 H Lymph # [place] # 1.1 H Baso # Seg Neutrophils % Seg Neuts % (Manual) Lymphocytes % (Manual) Monocytes % (Manual) Eosinophils % (Manual) Basophils % (Manual) Nucleated RBC % Seg Neutrophils # Seg Neutrophils # Man Lymphocytes # (Manual) Monocytes # (Manual) Eosinophils # (Manual) Basophils # (Manual) PT INR Fibrinogen dRVVT Confirm Interp Factor V Activity POC ABG pH POC ABG pCO2 POC ABG pO2 ABG pO2 ABG HCO3 ABG Base Excess ABG Hemoglobin Oxyhemoglobin Sodium Potassium Chloride Carbon Dioxide BUN 51 H Creatinine 1.8 H Glucose POC Glucose 60 L Lactic Acid Calcium 8.3 L Phosphorus Magnesium Direct Bilirubin AST ALT Alkaline Phosphatase Lactate Dehydrogenase Troponin T C-Reactive Protein Total Protein Albumin Prealbumin Triglycerides Cholesterol LDL Cholesterol Direct HDL Cholesterol Urine pH Urine WBC (Auto) Urine Creatinine Urine Total Protein Fluid Total Protein Vancomycin Trough Rheumatoid Factor Complement C4 Miscellaneous Test Crossmatch 11/09/16 11/10/16 11/10/16 18:55 07:00 11:51 WBC RBC Hgb Hct MCV MCH MCHC RDW Plt Count Lymph % (Auto) [place] % (Auto) Lymph # [place] # Baso # Seg Neutrophils % Seg Neuts % (Manual) Lymphocytes % (Manual) Monocytes % (Manual) Eosinophils % (Manual) Basophils % (Manual) Nucleated RBC % Seg Neutrophils # Seg Neutrophils # Man Lymphocytes # (Manual) Monocytes # (Manual) Eosinophils # (Manual) Basophils # (Manual) PT INR Fibrinogen dRVVT Confirm Interp Factor V Activity POC ABG pH POC ABG pCO2 POC ABG pO2 ABG pO2 ABG HCO3 ABG Base Excess ABG Hemoglobin Oxyhemoglobin Sodium Potassium 3.0 L D Chloride 97.4 L Carbon Dioxide BUN 28 H Creatinine 1.3 H Glucose POC Glucose 68 L 120 H Lactic Acid Calcium 7.8 L Phosphorus Magnesium Direct Bilirubin AST ALT Alkaline Phosphatase Lactate Dehydrogenase Troponin T C-Reactive Protein Total Protein Albumin Prealbumin Triglycerides Cholesterol LDL Cholesterol Direct HDL Cholesterol Urine pH Urine WBC (Auto) Urine Creatinine Urine Total Protein Fluid Total Protein Vancomycin Trough Rheumatoid Factor Complement C4 Miscellaneous Test Crossmatch 11/10/16 11/11/16 11/11/16 14:20 06:59 06:59 WBC RBC 2.81 L Hgb 8.1 L Hct 24.4 L MCV MCH MCHC RDW 16.4 H Plt Count Lymph % (Auto) [place] % (Auto) 10.8 H Lymph # [place] # 1.0 H Baso # Seg Neutrophils % Seg Neuts % (Manual) Lymphocytes % (Manual) Monocytes % (Manual) Eosinophils % (Manual) Basophils % (Manual) Nucleated RBC % Seg Neutrophils # Seg Neutrophils # Man Lymphocytes # (Manual) Monocytes # (Manual) Eosinophils # (Manual) Basophils # (Manual) PT INR Fibrinogen dRVVT Confirm Interp Factor V Activity POC ABG pH POC ABG pCO2 POC ABG pO2 ABG pO2 ABG HCO3 ABG Base Excess ABG Hemoglobin Oxyhemoglobin Sodium Potassium Chloride Carbon Dioxide BUN Creatinine Glucose POC Glucose Lactic Acid Calcium Phosphorus Magnesium Direct Bilirubin AST ALT Alkaline Phosphatase Lactate Dehydrogenase 196 H Troponin T C-Reactive Protein Total Protein 6.1 L Albumin Prealbumin Triglycerides Cholesterol LDL Cholesterol Direct HDL Cholesterol Urine pH Urine WBC (Auto) Urine Creatinine Urine Total Protein Fluid Total Protein < 3.0 L Vancomycin Trough Rheumatoid Factor Complement C4 Miscellaneous Test Crossmatch 11/11/16 11/11/16 11/12/16 06:59 09:50 04:00 WBC RBC Hgb Hct MCV MCH MCHC RDW Plt Count Lymph % (Auto) [place] % (Auto) Lymph # [place] # Baso # Seg Neutrophils % Seg Neuts % (Manual) Lymphocytes % (Manual) Monocytes % (Manual) Eosinophils % (Manual) Basophils % (Manual) Nucleated RBC % Seg Neutrophils # Seg Neutrophils # Man Lymphocytes # (Manual) Monocytes # (Manual) Eosinophils # (Manual) Basophils # (Manual) PT INR 1.18 H Fibrinogen dRVVT Confirm Interp Factor V Activity POC ABG pH POC ABG pCO2 POC ABG pO2 ABG pO2 ABG HCO3 ABG Base Excess ABG Hemoglobin Oxyhemoglobin Sodium 136 L 133 L Potassium Chloride 96.1 L 94.8 L Carbon Dioxide 21 L BUN 37 H 42 H Creatinine 1.8 H 2.0 H Glucose POC Glucose Lactic Acid Calcium Phosphorus Magnesium Direct Bilirubin AST ALT Alkaline Phosphatase Lactate Dehydrogenase Troponin T C-Reactive Protein Total Protein Albumin Prealbumin Triglycerides Cholesterol LDL Cholesterol Direct HDL Cholesterol Urine pH Urine WBC (Auto) Urine Creatinine Urine Total Protein Fluid Total Protein Vancomycin Trough Rheumatoid Factor Complement C4 Miscellaneous Test Crossmatch 11/12/16 11/12/16 11/13/16 04:00 23:55 05:53 WBC RBC Hgb 8.9 L Hct 27.2 L MCV MCH MCHC RDW Plt Count Lymph % (Auto) [place] % (Auto) Lymph # [place] # Baso # Seg Neutrophils % Seg Neuts % (Manual) Lymphocytes % (Manual) Monocytes % (Manual) Eosinophils % (Manual) Basophils % (Manual) Nucleated RBC % Seg Neutrophils # Seg Neutrophils # Man Lymphocytes # (Manual) Monocytes # (Manual) Eosinophils # (Manual) Basophils # (Manual) PT INR Fibrinogen dRVVT Confirm Interp Factor V Activity POC ABG pH POC ABG pCO2 POC ABG pO2 ABG pO2 ABG HCO3 ABG Base Excess ABG Hemoglobin Oxyhemoglobin Sodium Potassium Chloride Carbon Dioxide BUN Creatinine Glucose POC Glucose 132 H 120 H Lactic Acid Calcium Phosphorus Magnesium Direct Bilirubin AST ALT Alkaline Phosphatase Lactate Dehydrogenase Troponin T C-Reactive Protein Total Protein Albumin Prealbumin Triglycerides Cholesterol LDL Cholesterol Direct HDL Cholesterol Urine pH Urine WBC (Auto) Urine Creatinine Urine Total Protein Fluid Total Protein Vancomycin Trough Rheumatoid Factor Complement C4 Miscellaneous Test Crossmatch 11/13/16 11/13/16 11/13/16 11:43 17:09 23:41 WBC RBC Hgb Hct MCV MCH MCHC RDW Plt Count Lymph % (Auto) [place] % (Auto) Lymph # [place] # Baso # Seg Neutrophils % Seg Neuts % (Manual) Lymphocytes % (Manual) Monocytes % (Manual) Eosinophils % (Manual) Basophils % (Manual) Nucleated RBC % Seg Neutrophils # Seg Neutrophils # Man Lymphocytes # (Manual) Monocytes # (Manual) Eosinophils # (Manual) Basophils # (Manual) PT INR Fibrinogen dRVVT Confirm Interp Factor V Activity POC ABG pH POC ABG pCO2 POC ABG pO2 ABG pO2 ABG HCO3 ABG Base Excess ABG Hemoglobin Oxyhemoglobin Sodium Potassium Chloride Carbon Dioxide BUN Creatinine Glucose POC Glucose 114 H 113 H 108 H Lactic Acid Calcium Phosphorus Magnesium Direct Bilirubin AST ALT Alkaline Phosphatase Lactate Dehydrogenase Troponin T C-Reactive Protein Total Protein Albumin Prealbumin Triglycerides Cholesterol LDL Cholesterol Direct HDL Cholesterol Urine pH Urine WBC (Auto) Urine Creatinine Urine Total Protein Fluid Total Protein Vancomycin Trough Rheumatoid Factor Complement C4 Miscellaneous Test Crossmatch 11/13/16 11/15/16 11/15/16 Unknown 00:37 03:30 WBC 11.2 H RBC 2.72 L Hgb 7.6 L Hct 23.4 L MCV MCH MCHC RDW 16.5 H Plt Count Lymph % (Auto) [place] % (Auto) Lymph # [place] # Baso # Seg Neutrophils % Seg Neuts % (Manual) Lymphocytes % (Manual) Monocytes % (Manual) Eosinophils % (Manual) Basophils % (Manual) Nucleated RBC % Seg Neutrophils # Seg Neutrophils # Man Lymphocytes # (Manual) Monocytes # (Manual) Eosinophils # (Manual) Basophils # (Manual) PT INR Fibrinogen dRVVT Confirm Interp Factor V Activity POC ABG pH POC ABG pCO2 POC ABG pO2 ABG pO2 ABG HCO3 ABG Base Excess ABG Hemoglobin Oxyhemoglobin Sodium 135 L Potassium Chloride 95.2 L Carbon Dioxide BUN 52 H Creatinine 2.2 H Glucose POC Glucose 108 H Lactic Acid Calcium Phosphorus Magnesium Direct Bilirubin AST ALT Alkaline Phosphatase Lactate Dehydrogenase Troponin T C-Reactive Protein Total Protein Albumin Prealbumin Triglycerides Cholesterol LDL Cholesterol Direct HDL Cholesterol Urine pH Urine WBC (Auto) Urine Creatinine Urine Total Protein Fluid Total Protein Vancomycin Trough Rheumatoid Factor Complement C4 Miscellaneous Test Crossmatch 11/15/16 11/15/16 11/15/16 03:30 05:04 11:50 WBC RBC Hgb Hct MCV MCH MCHC RDW Plt Count Lymph % (Auto) [place] % (Auto) Lymph # [place] # Baso # Seg Neutrophils % Seg Neuts % (Manual) Lymphocytes % (Manual) Monocytes % (Manual) Eosinophils % (Manual) Basophils % (Manual) Nucleated RBC % Seg Neutrophils # Seg Neutrophils # Man Lymphocytes # (Manual) Monocytes # (Manual) Eosinophils # (Manual) Basophils # (Manual) PT INR Fibrinogen dRVVT Confirm Interp Factor V Activity POC ABG pH POC ABG pCO2 POC ABG pO2 ABG pO2 ABG HCO3 ABG Base Excess ABG Hemoglobin Oxyhemoglobin Sodium Potassium 3.4 L Chloride Carbon Dioxide BUN 25 H Creatinine 1.5 H Glucose 103 H POC Glucose 121 H 144 H Lactic Acid Calcium Phosphorus Magnesium Direct Bilirubin AST ALT Alkaline Phosphatase Lactate Dehydrogenase Troponin T C-Reactive Protein Total Protein Albumin Prealbumin Triglycerides Cholesterol LDL Cholesterol Direct HDL Cholesterol Urine pH Urine WBC (Auto) Urine Creatinine Urine Total Protein Fluid Total Protein Vancomycin Trough Rheumatoid Factor Complement C4 Miscellaneous Test Crossmatch 11/15/16 11/15/16 11/16/16 21:28 23:20 11:44 WBC RBC Hgb Hct MCV MCH MCHC RDW Plt Count Lymph % (Auto) [place] % (Auto) Lymph # [place] # Baso # Seg Neutrophils % Seg Neuts % (Manual) Lymphocytes % (Manual) Monocytes % (Manual) Eosinophils % (Manual) Basophils % (Manual) Nucleated RBC % Seg Neutrophils # Seg Neutrophils # Man Lymphocytes # (Manual) Monocytes # (Manual) Eosinophils # (Manual) Basophils # (Manual) PT INR Fibrinogen dRVVT Confirm Interp Factor V Activity POC ABG pH 7.462 H POC ABG pCO2 POC ABG pO2 71 L ABG pO2 ABG HCO3 ABG Base Excess ABG Hemoglobin Oxyhemoglobin Sodium Potassium Chloride Carbon Dioxide BUN Creatinine Glucose POC Glucose 116 H 133 H Lactic Acid Calcium Phosphorus Magnesium Direct Bilirubin AST ALT Alkaline Phosphatase Lactate Dehydrogenase Troponin T C-Reactive Protein Total Protein Albumin Prealbumin Triglycerides Cholesterol LDL Cholesterol Direct HDL Cholesterol Urine pH Urine WBC (Auto) Urine Creatinine Urine Total Protein Fluid Total Protein Vancomycin Trough Rheumatoid Factor Complement C4 Miscellaneous Test Crossmatch 11/16/16 11/16/16 11/16/16 12:20 17:05 23:35 WBC 11.7 H RBC 2.73 L Hgb 7.6 L Hct 23.7 L MCV MCH MCHC RDW 16.6 H Plt Count Lymph % (Auto) [place] % (Auto) Lymph # [place] # Baso # Seg Neutrophils % Seg Neuts % (Manual) Lymphocytes % (Manual) Monocytes % (Manual) Eosinophils % (Manual) Basophils % (Manual) Nucleated RBC % Seg Neutrophils # Seg Neutrophils # Man Lymphocytes # (Manual) Monocytes # (Manual) Eosinophils # (Manual) Basophils # (Manual) PT INR Fibrinogen dRVVT Confirm Interp Factor V Activity POC ABG pH POC ABG pCO2 POC ABG pO2 ABG pO2 ABG HCO3 ABG Base Excess ABG Hemoglobin Oxyhemoglobin Sodium Potassium Chloride Carbon Dioxide BUN Creatinine Glucose POC Glucose 154 H 125 H Lactic Acid Calcium Phosphorus Magnesium Direct Bilirubin AST ALT Alkaline Phosphatase Lactate Dehydrogenase Troponin T C-Reactive Protein Total Protein Albumin Prealbumin Triglycerides Cholesterol LDL Cholesterol Direct HDL Cholesterol Urine pH Urine WBC (Auto) Urine Creatinine Urine Total Protein Fluid Total Protein Vancomycin Trough Rheumatoid Factor Complement C4 Miscellaneous Test Crossmatch 11/17/16 11/17/16 11/17/16 03:20 03:20 03:20 WBC RBC 2.55 L Hgb 7.3 L Hct 21.9 L MCV MCH MCHC RDW 16.6 H Plt Count Lymph % (Auto) [place] % (Auto) 11.5 H Lymph # [place] # 1.1 H Baso # Seg Neutrophils % Seg Neuts % (Manual) Lymphocytes % (Manual) Monocytes % (Manual) Eosinophils % (Manual) Basophils % (Manual) Nucleated RBC % Seg Neutrophils # Seg Neutrophils # Man Lymphocytes # (Manual) Monocytes # (Manual) Eosinophils # (Manual) Basophils # (Manual) PT 16.8 H INR 1.37 H Fibrinogen dRVVT Confirm Interp Factor V Activity POC ABG pH POC ABG pCO2 POC ABG pO2 ABG pO2 ABG HCO3 ABG Base Excess ABG Hemoglobin Oxyhemoglobin Sodium Potassium 3.5 L Chloride Carbon Dioxide BUN 21 H Creatinine Glucose POC Glucose Lactic Acid Calcium 7.9 L Phosphorus Magnesium Direct Bilirubin AST ALT Alkaline Phosphatase Lactate Dehydrogenase Troponin T C-Reactive Protein Total Protein Albumin Prealbumin Triglycerides Cholesterol LDL Cholesterol Direct HDL Cholesterol Urine pH Urine WBC (Auto) Urine Creatinine Urine Total Protein Fluid Total Protein Vancomycin Trough Rheumatoid Factor Complement C4 Miscellaneous Test Crossmatch 11/17/16 11/17/16 11/17/16 06:34 11:21 21:22 WBC RBC Hgb Hct MCV MCH MCHC RDW Plt Count Lymph % (Auto) [place] % (Auto) Lymph # [place] # Baso # Seg Neutrophils % Seg Neuts % (Manual) Lymphocytes % (Manual) Monocytes % (Manual) Eosinophils % (Manual) Basophils % (Manual) Nucleated RBC % Seg Neutrophils # Seg Neutrophils # Man Lymphocytes # (Manual) Monocytes # (Manual) Eosinophils # (Manual) Basophils # (Manual) PT INR Fibrinogen dRVVT Confirm Interp Factor V Activity POC ABG pH 7.467 H POC ABG pCO2 POC ABG pO2 73 L ABG pO2 ABG HCO3 ABG Base Excess ABG Hemoglobin Oxyhemoglobin Sodium Potassium Chloride Carbon Dioxide BUN Creatinine Glucose POC Glucose 121 H 119 H Lactic Acid Calcium Phosphorus Magnesium Direct Bilirubin AST ALT Alkaline Phosphatase Lactate Dehydrogenase Troponin T C-Reactive Protein Total Protein Albumin Prealbumin Triglycerides Cholesterol LDL Cholesterol Direct HDL Cholesterol Urine pH Urine WBC (Auto) Urine Creatinine Urine Total Protein Fluid Total Protein Vancomycin Trough Rheumatoid Factor Complement C4 Miscellaneous Test Crossmatch 11/18/16 11/18/16 11/19/16 12:16 17:19 00:00 WBC RBC Hgb Hct MCV MCH MCHC RDW Plt Count Lymph % (Auto) [place] % (Auto) Lymph # [place] # Baso # Seg Neutrophils % Seg Neuts % (Manual) Lymphocytes % (Manual) Monocytes % (Manual) Eosinophils % (Manual) Basophils % (Manual) Nucleated RBC % Seg Neutrophils # Seg Neutrophils # Man Lymphocytes # (Manual) Monocytes # (Manual) Eosinophils # (Manual) Basophils # (Manual) PT INR Fibrinogen dRVVT Confirm Interp Factor V Activity POC ABG pH POC ABG pCO2 POC ABG pO2 ABG pO2 ABG HCO3 ABG Base Excess ABG Hemoglobin Oxyhemoglobin Sodium Potassium Chloride Carbon Dioxide BUN Creatinine Glucose POC Glucose 124 H 162 H 139 H Lactic Acid Calcium Phosphorus Magnesium Direct Bilirubin AST ALT Alkaline Phosphatase Lactate Dehydrogenase Troponin T C-Reactive Protein Total Protein Albumin Prealbumin Triglycerides Cholesterol LDL Cholesterol Direct HDL Cholesterol Urine pH Urine WBC (Auto) Urine Creatinine Urine Total Protein Fluid Total Protein Vancomycin Trough Rheumatoid Factor Complement C4 Miscellaneous Test Crossmatch 11/19/16 11/19/16 11/20/16 05:00 12:43 00:40 WBC RBC Hgb Hct MCV MCH MCHC RDW Plt Count Lymph % (Auto) [place] % (Auto) Lymph # [place] # Baso # Seg Neutrophils % Seg Neuts % (Manual) Lymphocytes % (Manual) Monocytes % (Manual) Eosinophils % (Manual) Basophils % (Manual) Nucleated RBC % Seg Neutrophils # Seg Neutrophils # Man Lymphocytes # (Manual) Monocytes # (Manual) Eosinophils # (Manual) Basophils # (Manual) PT INR Fibrinogen dRVVT Confirm Interp Factor V Activity POC ABG pH POC ABG pCO2 POC ABG pO2 ABG pO2 ABG HCO3 ABG Base Excess ABG Hemoglobin Oxyhemoglobin Sodium Potassium Chloride Carbon Dioxide BUN Creatinine Glucose POC Glucose 110 H 125 H 136 H Lactic Acid Calcium Phosphorus Magnesium Direct Bilirubin AST ALT Alkaline Phosphatase Lactate Dehydrogenase Troponin T C-Reactive Protein Total Protein Albumin Prealbumin Triglycerides Cholesterol LDL Cholesterol Direct HDL Cholesterol Urine pH Urine WBC (Auto) Urine Creatinine Urine Total Protein Fluid Total Protein Vancomycin Trough Rheumatoid Factor Complement C4 Miscellaneous Test Crossmatch 11/20/16 11/20/16 11/20/16 05:00 05:00 05:51 WBC 13.1 H RBC 2.74 L Hgb 7.7 L Hct 23.6 L MCV MCH MCHC RDW 16.9 H Plt Count Lymph % (Auto) [place] % (Auto) 10.8 H Lymph # [place] # 1.4 H Baso # Seg Neutrophils % Seg Neuts % (Manual) Lymphocytes % (Manual) Monocytes % (Manual) Eosinophils % (Manual) Basophils % (Manual) Nucleated RBC % Seg Neutrophils # 7.9 H Seg Neutrophils # Man Lymphocytes # (Manual) Monocytes # (Manual) Eosinophils # (Manual) Basophils # (Manual) PT INR Fibrinogen dRVVT Confirm Interp Factor V Activity POC ABG pH POC ABG pCO2 POC ABG pO2 ABG pO2 ABG HCO3 ABG Base Excess ABG Hemoglobin Oxyhemoglobin Sodium Potassium Chloride Carbon Dioxide BUN 31 H Creatinine 1.8 H Glucose 129 H POC Glucose 133 H Lactic Acid Calcium Phosphorus Magnesium Direct Bilirubin AST ALT Alkaline Phosphatase Lactate Dehydrogenase Troponin T C-Reactive Protein Total Protein Albumin Prealbumin Triglycerides Cholesterol LDL Cholesterol Direct HDL Cholesterol Urine pH Urine WBC (Auto) Urine Creatinine Urine Total Protein Fluid Total Protein Vancomycin Trough Rheumatoid Factor Complement C4 Miscellaneous Test Crossmatch 11/20/16 11/20/16 11/21/16 12:40 18:10 01:20 WBC RBC Hgb Hct MCV MCH MCHC RDW Plt Count Lymph % (Auto) [place] % (Auto) Lymph # [place] # Baso # Seg Neutrophils % Seg Neuts % (Manual) Lymphocytes % (Manual) Monocytes % (Manual) Eosinophils % (Manual) Basophils % (Manual) Nucleated RBC % Seg Neutrophils # Seg Neutrophils # Man Lymphocytes # (Manual) Monocytes # (Manual) Eosinophils # (Manual) Basophils # (Manual) PT INR Fibrinogen dRVVT Confirm Interp Factor V Activity POC ABG pH POC ABG pCO2 POC ABG pO2 ABG pO2 ABG HCO3 ABG Base Excess ABG Hemoglobin Oxyhemoglobin Sodium Potassium Chloride Carbon Dioxide BUN Creatinine Glucose POC Glucose 134 H 138 H 136 H Lactic Acid Calcium Phosphorus Magnesium Direct Bilirubin AST ALT Alkaline Phosphatase Lactate Dehydrogenase Troponin T C-Reactive Protein Total Protein Albumin Prealbumin Triglycerides Cholesterol LDL Cholesterol Direct HDL Cholesterol Urine pH Urine WBC (Auto) Urine Creatinine Urine Total Protein Fluid Total Protein Vancomycin Trough Rheumatoid Factor Complement C4 Miscellaneous Test Crossmatch 11/21/16 11/21/16 11/21/16 07:04 07:45 07:45 WBC 22.0 H RBC 2.91 L Hgb 8.2 L Hct 25.4 L MCV MCH MCHC RDW 17.1 H Plt Count Lymph % (Auto) [place] % (Auto) Lymph # [place] # Baso # Seg Neutrophils % Seg Neuts % (Manual) Lymphocytes % (Manual) 8.0 L Monocytes % (Manual) Eosinophils % (Manual) Basophils % (Manual) Nucleated RBC % Seg Neutrophils # Seg Neutrophils # Man 14.7 H Lymphocytes # (Manual) Monocytes # (Manual) 1.1 H Eosinophils # (Manual) Basophils # (Manual) PT INR Fibrinogen dRVVT Confirm Interp Factor V Activity POC ABG pH POC ABG pCO2 POC ABG pO2 ABG pO2 ABG HCO3 ABG Base Excess ABG Hemoglobin Oxyhemoglobin Sodium Potassium Chloride Carbon Dioxide BUN 42 H Creatinine 2.0 H Glucose POC Glucose 108 H Lactic Acid Calcium Phosphorus Magnesium Direct Bilirubin AST ALT Alkaline Phosphatase Lactate Dehydrogenase Troponin T C-Reactive Protein Total Protein Albumin Prealbumin Triglycerides Cholesterol LDL Cholesterol Direct HDL Cholesterol Urine pH Urine WBC (Auto) Urine Creatinine Urine Total Protein Fluid Total Protein Vancomycin Trough Rheumatoid Factor Complement C4 Miscellaneous Test Crossmatch 11/21/16 11/21/16 11/21/16 08:38 10:09 11:20 WBC RBC Hgb Hct MCV MCH MCHC RDW Plt Count Lymph % (Auto) [place] % (Auto) Lymph # [place] # Baso # Seg Neutrophils % Seg Neuts % (Manual) Lymphocytes % (Manual) Monocytes % (Manual) Eosinophils % (Manual) Basophils % (Manual) Nucleated RBC % Seg Neutrophils # Seg Neutrophils # Man Lymphocytes # (Manual) Monocytes # (Manual) Eosinophils # (Manual) Basophils # (Manual) PT INR Fibrinogen dRVVT Confirm Interp Factor V Activity POC ABG pH 7.346 L POC ABG pCO2 34.4 L POC ABG pO2 314 H ABG pO2 ABG HCO3 ABG Base Excess ABG Hemoglobin Oxyhemoglobin Sodium Potassium Chloride Carbon Dioxide BUN Creatinine Glucose POC Glucose 195 H 153 H Lactic Acid Calcium Phosphorus Magnesium Direct Bilirubin AST ALT Alkaline Phosphatase Lactate Dehydrogenase Troponin T C-Reactive Protein Total Protein Albumin Prealbumin Triglycerides Cholesterol LDL Cholesterol Direct HDL Cholesterol Urine pH Urine WBC (Auto) Urine Creatinine Urine Total Protein Fluid Total Protein Vancomycin Trough Rheumatoid Factor Complement C4 Miscellaneous Test Crossmatch 11/21/16 11/22/16 11/22/16 23:37 04:48 05:00 WBC 29.7 H RBC 2.73 L Hgb 7.5 L Hct 24.2 L MCV MCH 27 L MCHC RDW 17.4 H Plt Count Lymph % (Auto) [place] % (Auto) Lymph # [place] # Baso # Seg Neutrophils % Seg Neuts % (Manual) Lymphocytes % (Manual) 7.0 L Monocytes % (Manual) Eosinophils % (Manual) Basophils % (Manual) Nucleated RBC % Seg Neutrophils # Seg Neutrophils # Man 15.4 H Lymphocytes # (Manual) Monocytes # (Manual) Eosinophils # (Manual) Basophils # (Manual) PT INR Fibrinogen dRVVT Confirm Interp Factor V Activity POC ABG pH POC ABG pCO2 24.6 L POC ABG pO2 189 H ABG pO2 ABG HCO3 ABG Base Excess ABG Hemoglobin Oxyhemoglobin Sodium Potassium Chloride Carbon Dioxide BUN Creatinine Glucose POC Glucose 65 L Lactic Acid Calcium Phosphorus Magnesium Direct Bilirubin AST ALT Alkaline Phosphatase Lactate Dehydrogenase Troponin T C-Reactive Protein Total Protein Albumin Prealbumin Triglycerides Cholesterol LDL Cholesterol Direct HDL Cholesterol Urine pH Urine WBC (Auto) Urine Creatinine Urine Total Protein Fluid Total Protein Vancomycin Trough Rheumatoid Factor Complement C4 Miscellaneous Test Crossmatch 11/22/16 11/23/16 11/23/16 05:00 03:44 04:06 WBC RBC 2.52 L Hgb 7.2 L Hct 21.5 L MCV MCH MCHC RDW 17.1 H Plt Count Lymph % (Auto) [place] % (Auto) 12.4 H Lymph # [place] # 1.4 H Baso # Seg Neutrophils % Seg Neuts % (Manual) Lymphocytes % (Manual) Monocytes % (Manual) Eosinophils % (Manual) Basophils % (Manual) Nucleated RBC % Seg Neutrophils # Seg Neutrophils # Man Lymphocytes # (Manual) Monocytes # (Manual) Eosinophils # (Manual) Basophils # (Manual) PT INR Fibrinogen dRVVT Confirm Interp Factor V Activity POC ABG pH 7.493 H POC ABG pCO2 29.5 L POC ABG pO2 49 L ABG pO2 ABG HCO3 ABG Base Excess ABG Hemoglobin Oxyhemoglobin Sodium 134 L Potassium Chloride 95.9 L Carbon Dioxide 14 L D BUN 51 H Creatinine 2.6 H Glucose POC Glucose Lactic Acid Calcium Phosphorus Magnesium Direct Bilirubin AST ALT Alkaline Phosphatase Lactate Dehydrogenase Troponin T C-Reactive Protein Total Protein Albumin Prealbumin Triglycerides Cholesterol LDL Cholesterol Direct HDL Cholesterol Urine pH Urine WBC (Auto) Urine Creatinine Urine Total Protein Fluid Total Protein Vancomycin Trough Rheumatoid Factor Complement C4 Miscellaneous Test Crossmatch 11/23/16 11/23/16 11/24/16 04:06 11:29 06:39 WBC RBC Hgb Hct MCV MCH MCHC RDW Plt Count Lymph % (Auto) [place] % (Auto) Lymph # [place] # Baso # Seg Neutrophils % Seg Neuts % (Manual) Lymphocytes % (Manual) Monocytes % (Manual) Eosinophils % (Manual) Basophils % (Manual) Nucleated RBC % Seg Neutrophils # Seg Neutrophils # Man Lymphocytes # (Manual) Monocytes # (Manual) Eosinophils # (Manual) Basophils # (Manual) PT INR Fibrinogen dRVVT Confirm Interp Factor V Activity POC ABG pH POC ABG pCO2 POC ABG pO2 ABG pO2 ABG HCO3 ABG Base Excess ABG Hemoglobin Oxyhemoglobin Sodium 136 L Potassium Chloride 95.2 L Carbon Dioxide BUN 60 H Creatinine 2.9 H Glucose POC Glucose 69 L 305 H Lactic Acid Calcium Phosphorus Magnesium 1.60 L Direct Bilirubin AST ALT Alkaline Phosphatase Lactate Dehydrogenase Troponin T C-Reactive Protein Total Protein Albumin Prealbumin Triglycerides Cholesterol LDL Cholesterol Direct HDL Cholesterol Urine pH Urine WBC (Auto) Urine Creatinine Urine Total Protein Fluid Total Protein Vancomycin Trough Rheumatoid Factor Complement C4 Miscellaneous Test Crossmatch 11/24/16 11/24/16 11/24/16 06:43 08:08 08:08 WBC 11.2 H RBC 2.47 L Hgb 6.8 L Hct 20.6 L MCV MCH MCHC RDW 17.0 H Plt Count Lymph % (Auto) [place] % (Auto) 10.3 H Lymph # [place] # 1.2 H Baso # Seg Neutrophils % Seg Neuts % (Manual) Lymphocytes % (Manual) Monocytes % (Manual) Eosinophils % (Manual) Basophils % (Manual) Nucleated RBC % Seg Neutrophils # Seg Neutrophils # Man Lymphocytes # (Manual) Monocytes # (Manual) Eosinophils # (Manual) Basophils # (Manual) PT INR Fibrinogen dRVVT Confirm Interp Factor V Activity POC ABG pH POC ABG pCO2 POC ABG pO2 ABG pO2 ABG HCO3 ABG Base Excess ABG Hemoglobin Oxyhemoglobin Sodium 135 L Potassium Chloride 96.3 L Carbon Dioxide BUN 61 H Creatinine 3.1 H Glucose POC Glucose 62 L Lactic Acid Calcium 8.2 L Phosphorus Magnesium Direct Bilirubin AST ALT Alkaline Phosphatase Lactate Dehydrogenase Troponin T C-Reactive Protein Total Protein Albumin Prealbumin Triglycerides Cholesterol LDL Cholesterol Direct HDL Cholesterol Urine pH Urine WBC (Auto) Urine Creatinine Urine Total Protein Fluid Total Protein Vancomycin Trough Rheumatoid Factor Complement C4 Miscellaneous Test Crossmatch 11/24/16 11/24/16 11/24/16 08:34 11:20 12:41 WBC RBC Hgb Hct MCV MCH MCHC RDW Plt Count Lymph % (Auto) [place] % (Auto) Lymph # [place] # Baso # Seg Neutrophils % Seg Neuts % (Manual) Lymphocytes % (Manual) Monocytes % (Manual) Eosinophils % (Manual) Basophils % (Manual) Nucleated RBC % Seg Neutrophils # Seg Neutrophils # Man Lymphocytes # (Manual) Monocytes # (Manual) Eosinophils # (Manual) Basophils # (Manual) PT INR Fibrinogen dRVVT Confirm Interp Factor V Activity POC ABG pH POC ABG pCO2 POC ABG pO2 ABG pO2 ABG HCO3 ABG Base Excess ABG Hemoglobin Oxyhemoglobin Sodium Potassium Chloride Carbon Dioxide BUN Creatinine Glucose POC Glucose 108 H Lactic Acid Calcium Phosphorus Magnesium 1.60 L Direct Bilirubin AST ALT Alkaline Phosphatase Lactate Dehydrogenase Troponin T C-Reactive Protein Total Protein Albumin Prealbumin Triglycerides Cholesterol LDL Cholesterol Direct HDL Cholesterol Urine pH Urine WBC (Auto) Urine Creatinine Urine Total Protein Fluid Total Protein Vancomycin Trough Rheumatoid Factor Complement C4 Miscellaneous Test Crossmatch See Detail 11/25/16 11/25/16 11/25/16 00:03 04:42 04:42 WBC RBC 3.03 L Hgb 8.6 L Hct 25.3 L MCV MCH MCHC RDW 16.2 H Plt Count Lymph % (Auto) [place] % (Auto) 8.1 H Lymph # [place] # Baso # Seg Neutrophils % 71.3 H Seg Neuts % (Manual) Lymphocytes % (Manual) Monocytes % (Manual) Eosinophils % (Manual) Basophils % (Manual) Nucleated RBC % Seg Neutrophils # Seg Neutrophils # Man Lymphocytes # (Manual) Monocytes # (Manual) Eosinophils # (Manual) Basophils # (Manual) PT INR Fibrinogen dRVVT Confirm Interp Factor V Activity POC ABG pH POC ABG pCO2 POC ABG pO2 ABG pO2 ABG HCO3 ABG Base Excess ABG Hemoglobin Oxyhemoglobin Sodium Potassium Chloride Carbon Dioxide BUN 61 H Creatinine 3.0 H Glucose 102 H POC Glucose 113 H Lactic Acid Calcium 8.2 L Phosphorus Magnesium Direct Bilirubin AST ALT Alkaline Phosphatase 142 H Lactate Dehydrogenase Troponin T C-Reactive Protein Total Protein 5.7 L Albumin 1.5 L Prealbumin Triglycerides Cholesterol LDL Cholesterol Direct HDL Cholesterol Urine pH Urine WBC (Auto) Urine Creatinine Urine Total Protein Fluid Total Protein Vancomycin Trough Rheumatoid Factor Complement C4 Miscellaneous Test Crossmatch 11/25/16 11/25/16 11/25/16 05:12 11:31 14:12 WBC RBC Hgb Hct MCV MCH MCHC RDW Plt Count Lymph % (Auto) [place] % (Auto) Lymph # [place] # Baso # Seg Neutrophils % Seg Neuts % (Manual) Lymphocytes % (Manual) Monocytes % (Manual) Eosinophils % (Manual) Basophils % (Manual) Nucleated RBC % Seg Neutrophils # Seg Neutrophils # Man Lymphocytes # (Manual) Monocytes # (Manual) Eosinophils # (Manual) Basophils # (Manual) PT INR Fibrinogen dRVVT Confirm Interp Factor V Activity POC ABG pH 7.487 H POC ABG pCO2 POC ABG pO2 153 H ABG pO2 ABG HCO3 ABG Base Excess ABG Hemoglobin Oxyhemoglobin Sodium Potassium Chloride Carbon Dioxide BUN Creatinine Glucose POC Glucose 131 H 140 H Lactic Acid Calcium Phosphorus Magnesium Direct Bilirubin AST ALT Alkaline Phosphatase Lactate Dehydrogenase Troponin T C-Reactive Protein Total Protein Albumin Prealbumin Triglycerides Cholesterol LDL Cholesterol Direct HDL Cholesterol Urine pH Urine WBC (Auto) Urine Creatinine Urine Total Protein Fluid Total Protein Vancomycin Trough Rheumatoid Factor Complement C4 Miscellaneous Test Crossmatch 11/25/16 11/26/16 11/26/16 17:23 00:09 05:13 WBC RBC 2.94 L Hgb 8.4 L Hct 24.6 L MCV MCH MCHC RDW 16.4 H Plt Count Lymph % (Auto) [place] % (Auto) 12.3 H Lymph # [place] # 1.1 H Baso # Seg Neutrophils % Seg Neuts % (Manual) Lymphocytes % (Manual) Monocytes % (Manual) Eosinophils % (Manual) Basophils % (Manual) Nucleated RBC % Seg Neutrophils # Seg Neutrophils # Man Lymphocytes # (Manual) Monocytes # (Manual) Eosinophils # (Manual) Basophils # (Manual) PT INR Fibrinogen dRVVT Confirm Interp Factor V Activity POC ABG pH POC ABG pCO2 POC ABG pO2 ABG pO2 ABG HCO3 ABG Base Excess ABG Hemoglobin Oxyhemoglobin Sodium Potassium Chloride Carbon Dioxide BUN Creatinine Glucose POC Glucose 146 H 112 H Lactic Acid Calcium Phosphorus Magnesium Direct Bilirubin AST ALT Alkaline Phosphatase Lactate Dehydrogenase Troponin T C-Reactive Protein Total Protein Albumin Prealbumin Triglycerides Cholesterol LDL Cholesterol Direct HDL Cholesterol Urine pH Urine WBC (Auto) Urine Creatinine Urine Total Protein Fluid Total Protein Vancomycin Trough Rheumatoid Factor Complement C4 Miscellaneous Test Crossmatch 11/26/16 11/26/16 11/26/16 05:13 05:28 11:53 WBC RBC Hgb Hct MCV MCH MCHC RDW Plt Count Lymph % (Auto) [place] % (Auto) Lymph # [place] # Baso # Seg Neutrophils % Seg Neuts % (Manual) Lymphocytes % (Manual) Monocytes % (Manual) Eosinophils % (Manual) Basophils % (Manual) Nucleated RBC % Seg Neutrophils # Seg Neutrophils # Man Lymphocytes # (Manual) Monocytes # (Manual) Eosinophils # (Manual) Basophils # (Manual) PT INR Fibrinogen dRVVT Confirm Interp Factor V Activity POC ABG pH POC ABG pCO2 POC ABG pO2 ABG pO2 ABG HCO3 ABG Base Excess ABG Hemoglobin Oxyhemoglobin Sodium Potassium Chloride 97.8 L Carbon Dioxide BUN 37 H Creatinine 2.0 H Glucose 109 H POC Glucose 117 H 111 H Lactic Acid Calcium 7.9 L Phosphorus 1.80 L D Magnesium Direct Bilirubin AST ALT Alkaline Phosphatase Lactate Dehydrogenase Troponin T C-Reactive Protein Total Protein Albumin Prealbumin Triglycerides Cholesterol LDL Cholesterol Direct HDL Cholesterol Urine pH Urine WBC (Auto) Urine Creatinine Urine Total Protein Fluid Total Protein Vancomycin Trough Rheumatoid Factor Complement C4 Miscellaneous Test Crossmatch 11/26/16 11/27/16 11/27/16 17:14 04:50 06:02 WBC RBC Hgb Hct MCV MCH MCHC RDW Plt Count Lymph % (Auto) [place] % (Auto) Lymph # [place] # Baso # Seg Neutrophils % Seg Neuts % (Manual) Lymphocytes % (Manual) Monocytes % (Manual) Eosinophils % (Manual) Basophils % (Manual) Nucleated RBC % Seg Neutrophils # Seg Neutrophils # Man Lymphocytes # (Manual) Monocytes # (Manual) Eosinophils # (Manual) Basophils # (Manual) PT INR Fibrinogen dRVVT Confirm Interp Factor V Activity POC ABG pH POC ABG pCO2 POC ABG pO2 ABG pO2 75.2 L ABG HCO3 26.4 H ABG Base Excess ABG Hemoglobin 7.6 L Oxyhemoglobin 94.8 L Sodium Potassium Chloride Carbon Dioxide BUN 49 H Creatinine 2.3 H Glucose POC Glucose 115 H Lactic Acid Calcium Phosphorus 1.50 L Magnesium Direct Bilirubin AST ALT Alkaline Phosphatase Lactate Dehydrogenase Troponin T C-Reactive Protein Total Protein Albumin Prealbumin Triglycerides Cholesterol LDL Cholesterol Direct HDL Cholesterol Urine pH Urine WBC (Auto) Urine Creatinine Urine Total Protein Fluid Total Protein Vancomycin Trough Rheumatoid Factor Complement C4 Miscellaneous Test Crossmatch 11/27/16 11/27/16 11/27/16 06:02 11:25 17:25 WBC 11.6 H RBC 2.75 L Hgb 7.6 L Hct 23.4 L MCV MCH MCHC RDW 16.5 H Plt Count Lymph % (Auto) [place] % (Auto) Lymph # [place] # Baso # Seg Neutrophils % Seg Neuts % (Manual) Lymphocytes % (Manual) Monocytes % (Manual) Eosinophils % (Manual) Basophils % (Manual) Nucleated RBC % Seg Neutrophils # Seg Neutrophils # Man Lymphocytes # (Manual) Monocytes # (Manual) Eosinophils # (Manual) Basophils # (Manual) PT INR Fibrinogen dRVVT Confirm Interp Factor V Activity POC ABG pH POC ABG pCO2 POC ABG pO2 ABG pO2 ABG HCO3 ABG Base Excess ABG Hemoglobin Oxyhemoglobin Sodium Potassium Chloride Carbon Dioxide BUN Creatinine Glucose POC Glucose 114 H 126 H Lactic Acid Calcium Phosphorus Magnesium Direct Bilirubin AST ALT Alkaline Phosphatase Lactate Dehydrogenase Troponin T C-Reactive Protein Total Protein Albumin Prealbumin Triglycerides Cholesterol LDL Cholesterol Direct HDL Cholesterol Urine pH Urine WBC (Auto) Urine Creatinine Urine Total Protein Fluid Total Protein Vancomycin Trough Rheumatoid Factor Complement C4 Miscellaneous Test Crossmatch 11/28/16 11/28/16 11/28/16 04:45 05:33 05:44 WBC RBC Hgb Hct MCV MCH MCHC RDW Plt Count Lymph % (Auto) [place] % (Auto) Lymph # [place] # Baso # Seg Neutrophils % Seg Neuts % (Manual) Lymphocytes % (Manual) Monocytes % (Manual) Eosinophils % (Manual) Basophils % (Manual) Nucleated RBC % Seg Neutrophils # Seg Neutrophils # Man Lymphocytes # (Manual) Monocytes # (Manual) Eosinophils # (Manual) Basophils # (Manual) PT INR Fibrinogen dRVVT Confirm Interp Factor V Activity POC ABG pH POC ABG pCO2 POC ABG pO2 ABG pO2 99.3 H ABG HCO3 ABG Base Excess ABG Hemoglobin 8.3 L Oxyhemoglobin Sodium Potassium Chloride Carbon Dioxide BUN 63 H Creatinine 2.4 H Glucose 102 H POC Glucose 108 H Lactic Acid Calcium Phosphorus 1.80 L Magnesium Direct Bilirubin AST ALT Alkaline Phosphatase Lactate Dehydrogenase Troponin T C-Reactive Protein Total Protein Albumin Prealbumin Triglycerides Cholesterol LDL Cholesterol Direct HDL Cholesterol Urine pH Urine WBC (Auto) Urine Creatinine Urine Total Protein Fluid Total Protein Vancomycin Trough Rheumatoid Factor Complement C4 Miscellaneous Test Crossmatch 11/28/16 11/28/16 11/28/16 12:31 16:09 23:46 WBC RBC Hgb Hct MCV MCH MCHC RDW Plt Count Lymph % (Auto) [place] % (Auto) Lymph # [place] # Baso # Seg Neutrophils % Seg Neuts % (Manual) Lymphocytes % (Manual) Monocytes % (Manual) Eosinophils % (Manual) Basophils % (Manual) Nucleated RBC % Seg Neutrophils # Seg Neutrophils # Man Lymphocytes # (Manual) Monocytes # (Manual) Eosinophils # (Manual) Basophils # (Manual) PT INR Fibrinogen dRVVT Confirm Interp Factor V Activity POC ABG pH POC ABG pCO2 POC ABG pO2 ABG pO2 ABG HCO3 ABG Base Excess ABG Hemoglobin Oxyhemoglobin Sodium Potassium Chloride Carbon Dioxide BUN Creatinine Glucose POC Glucose 126 H 111 H 119 H Lactic Acid Calcium Phosphorus Magnesium Direct Bilirubin AST ALT Alkaline Phosphatase Lactate Dehydrogenase Troponin T C-Reactive Protein Total Protein Albumin Prealbumin Triglycerides Cholesterol LDL Cholesterol Direct HDL Cholesterol Urine pH Urine WBC (Auto) Urine Creatinine Urine Total Protein Fluid Total Protein Vancomycin Trough Rheumatoid Factor Complement C4 Miscellaneous Test Crossmatch 11/29/16 11/29/16 11/29/16 03:33 04:52 05:10 WBC RBC Hgb Hct MCV MCH MCHC RDW Plt Count Lymph % (Auto) [place] % (Auto) Lymph # [place] # Baso # Seg Neutrophils % Seg Neuts % (Manual) Lymphocytes % (Manual) Monocytes % (Manual) Eosinophils % (Manual) Basophils % (Manual) Nucleated RBC % Seg Neutrophils # Seg Neutrophils # Man Lymphocytes # (Manual) Monocytes # (Manual) Eosinophils # (Manual) Basophils # (Manual) PT INR Fibrinogen dRVVT Confirm Interp Factor V Activity POC ABG pH POC ABG pCO2 POC ABG pO2 ABG pO2 ABG HCO3 ABG Base Excess ABG Hemoglobin 7.0 L Oxyhemoglobin 94.9 L Sodium Potassium Chloride Carbon Dioxide BUN 73 H Creatinine 2.7 H Glucose POC Glucose 108 H Lactic Acid Calcium Phosphorus Magnesium Direct Bilirubin AST ALT Alkaline Phosphatase Lactate Dehydrogenase Troponin T C-Reactive Protein Total Protein Albumin Prealbumin Triglycerides Cholesterol LDL Cholesterol Direct HDL Cholesterol Urine pH Urine WBC (Auto) Urine Creatinine Urine Total Protein Fluid Total Protein Vancomycin Trough Rheumatoid Factor Complement C4 Miscellaneous Test Crossmatch 11/29/16 11/29/16 11/29/16 12:16 18:05 23:46 WBC RBC Hgb Hct MCV MCH MCHC RDW Plt Count Lymph % (Auto) [place] % (Auto) Lymph # [place] # Baso # Seg Neutrophils % Seg Neuts % (Manual) Lymphocytes % (Manual) Monocytes % (Manual) Eosinophils % (Manual) Basophils % (Manual) Nucleated RBC % Seg Neutrophils # Seg Neutrophils # Man Lymphocytes # (Manual) Monocytes # (Manual) Eosinophils # (Manual) Basophils # (Manual) PT INR Fibrinogen dRVVT Confirm Interp Factor V Activity POC ABG pH POC ABG pCO2 POC ABG pO2 ABG pO2 ABG HCO3 ABG Base Excess ABG Hemoglobin Oxyhemoglobin Sodium Potassium Chloride Carbon Dioxide BUN Creatinine Glucose POC Glucose 133 H 146 H 141 H Lactic Acid Calcium Phosphorus Magnesium Direct Bilirubin AST ALT Alkaline Phosphatase Lactate Dehydrogenase Troponin T C-Reactive Protein Total Protein Albumin Prealbumin Triglycerides Cholesterol LDL Cholesterol Direct HDL Cholesterol Urine pH Urine WBC (Auto) Urine Creatinine Urine Total Protein Fluid Total Protein Vancomycin Trough Rheumatoid Factor Complement C4 Miscellaneous Test Crossmatch 11/30/16 11/30/16 11/30/16 04:17 04:17 04:32 WBC 12.0 H RBC 2.80 L Hgb 7.8 L Hct 23.6 L MCV MCH MCHC RDW 16.6 H Plt Count Lymph % (Auto) [place] % (Auto) 11.3 H Lymph # [place] # 1.4 H Baso # Seg Neutrophils % Seg Neuts % (Manual) Lymphocytes % (Manual) Monocytes % (Manual) Eosinophils % (Manual) Basophils % (Manual) Nucleated RBC % Seg Neutrophils # 8.2 H Seg Neutrophils # Man Lymphocytes # (Manual) Monocytes # (Manual) Eosinophils # (Manual) Basophils # (Manual) PT INR Fibrinogen dRVVT Confirm Interp Factor V Activity POC ABG pH POC ABG pCO2 POC ABG pO2 ABG pO2 ABG HCO3 ABG Base Excess ABG Hemoglobin Oxyhemoglobin Sodium 169 H* D Potassium 5.1 H Chloride 121.5 H Carbon Dioxide BUN 34 H Creatinine 1.3 H D Glucose 133 H POC Glucose 131 H Lactic Acid Calcium 10.3 H Phosphorus Magnesium Direct Bilirubin AST ALT Alkaline Phosphatase Lactate Dehydrogenase Troponin T C-Reactive Protein Total Protein Albumin Prealbumin Triglycerides Cholesterol LDL Cholesterol Direct HDL Cholesterol Urine pH Urine WBC (Auto) Urine Creatinine Urine Total Protein Fluid Total Protein Vancomycin Trough Rheumatoid Factor Complement C4 Miscellaneous Test Crossmatch 11/30/16 11/30/16 11/30/16 05:45 11:10 17:26 WBC RBC Hgb Hct MCV MCH MCHC RDW Plt Count Lymph % (Auto) [place] % (Auto) Lymph # [place] # Baso # Seg Neutrophils % Seg Neuts % (Manual) Lymphocytes % (Manual) Monocytes % (Manual) Eosinophils % (Manual) Basophils % (Manual) Nucleated RBC % Seg Neutrophils # Seg Neutrophils # Man Lymphocytes # (Manual) Monocytes # (Manual) Eosinophils # (Manual) Basophils # (Manual) PT INR Fibrinogen dRVVT Confirm Interp Factor V Activity POC ABG pH POC ABG pCO2 POC ABG pO2 ABG pO2 ABG HCO3 ABG Base Excess ABG Hemoglobin Oxyhemoglobin Sodium Potassium Chloride Carbon Dioxide BUN 45 H Creatinine 1.6 H Glucose 131 H POC Glucose 146 H 134 H Lactic Acid Calcium Phosphorus Magnesium Direct Bilirubin AST ALT Alkaline Phosphatase Lactate Dehydrogenase Troponin T C-Reactive Protein Total Protein Albumin Prealbumin Triglycerides Cholesterol LDL Cholesterol Direct HDL Cholesterol Urine pH Urine WBC (Auto) Urine Creatinine Urine Total Protein Fluid Total Protein Vancomycin Trough Rheumatoid Factor Complement C4 Miscellaneous Test Crossmatch 11/30/16 12/01/16 12/01/16 23:35 00:06 03:35 WBC RBC Hgb Hct MCV MCH MCHC RDW Plt Count Lymph % (Auto) [place] % (Auto) Lymph # [place] # Baso # Seg Neutrophils % Seg Neuts % (Manual) Lymphocytes % (Manual) Monocytes % (Manual) Eosinophils % (Manual) Basophils % (Manual) Nucleated RBC % Seg Neutrophils # Seg Neutrophils # Man Lymphocytes # (Manual) Monocytes # (Manual) Eosinophils # (Manual) Basophils # (Manual) PT INR Fibrinogen dRVVT Confirm Interp Factor V Activity POC ABG pH POC ABG pCO2 POC ABG pO2 ABG pO2 ABG HCO3 ABG Base Excess ABG Hemoglobin 6.9 L Oxyhemoglobin Sodium Potassium Chloride Carbon Dioxide BUN 58 H Creatinine 1.8 H Glucose 146 H POC Glucose 151 H Lactic Acid Calcium Phosphorus Magnesium Direct Bilirubin AST ALT Alkaline Phosphatase Lactate Dehydrogenase Troponin T C-Reactive Protein Total Protein Albumin Prealbumin Triglycerides Cholesterol LDL Cholesterol Direct HDL Cholesterol Urine pH Urine WBC (Auto) Urine Creatinine Urine Total Protein Fluid Total Protein Vancomycin Trough Rheumatoid Factor Complement C4 Miscellaneous Test Crossmatch 12/01/16 12/01/16 12/01/16 03:35 05:47 11:52 WBC 12.3 H RBC 2.82 L Hgb 7.8 L Hct 23.7 L MCV MCH MCHC RDW 16.7 H Plt Count Lymph % (Auto) [place] % (Auto) 9.8 H Lymph # [place] # 1.2 H Baso # Seg Neutrophils % Seg Neuts % (Manual) Lymphocytes % (Manual) Monocytes % (Manual) Eosinophils % (Manual) Basophils % (Manual) Nucleated RBC % Seg Neutrophils # 8.4 H Seg Neutrophils # Man Lymphocytes # (Manual) Monocytes # (Manual) Eosinophils # (Manual) Basophils # (Manual) PT INR Fibrinogen dRVVT Confirm Interp Factor V Activity POC ABG pH POC ABG pCO2 POC ABG pO2 ABG pO2 ABG HCO3 ABG Base Excess ABG Hemoglobin Oxyhemoglobin Sodium Potassium Chloride Carbon Dioxide BUN Creatinine Glucose POC Glucose 152 H 152 H Lactic Acid Calcium Phosphorus Magnesium Direct Bilirubin AST ALT Alkaline Phosphatase Lactate Dehydrogenase Troponin T C-Reactive Protein Total Protein Albumin Prealbumin Triglycerides Cholesterol LDL Cholesterol Direct HDL Cholesterol Urine pH Urine WBC (Auto) Urine Creatinine Urine Total Protein Fluid Total Protein Vancomycin Trough Rheumatoid Factor Complement C4 Miscellaneous Test Crossmatch 12/01/16 12/01/16 12/02/16 17:40 23:41 05:00 WBC RBC Hgb Hct MCV MCH MCHC RDW Plt Count Lymph % (Auto) [place] % (Auto) Lymph # [place] # Baso # Seg Neutrophils % Seg Neuts % (Manual) Lymphocytes % (Manual) Monocytes % (Manual) Eosinophils % (Manual) Basophils % (Manual) Nucleated RBC % Seg Neutrophils # Seg Neutrophils # Man Lymphocytes # (Manual) Monocytes # (Manual) Eosinophils # (Manual) Basophils # (Manual) PT INR Fibrinogen dRVVT Confirm Interp Factor V Activity POC ABG pH POC ABG pCO2 POC ABG pO2 ABG pO2 ABG HCO3 ABG Base Excess ABG Hemoglobin Oxyhemoglobin Sodium Potassium Chloride Carbon Dioxide BUN 45 H Creatinine Glucose 115 H POC Glucose 140 H 144 H Lactic Acid Calcium Phosphorus Magnesium Direct Bilirubin AST ALT Alkaline Phosphatase Lactate Dehydrogenase Troponin T C-Reactive Protein Total Protein Albumin Prealbumin Triglycerides Cholesterol LDL Cholesterol Direct HDL Cholesterol Urine pH Urine WBC (Auto) Urine Creatinine Urine Total Protein Fluid Total Protein Vancomycin Trough Rheumatoid Factor Complement C4 Miscellaneous Test Crossmatch 12/02/16 12/02/16 12/02/16 05:31 11:20 17:38 WBC RBC Hgb Hct MCV MCH MCHC RDW Plt Count Lymph % (Auto) [place] % (Auto) Lymph # [place] # Baso # Seg Neutrophils % Seg Neuts % (Manual) Lymphocytes % (Manual) Monocytes % (Manual) Eosinophils % (Manual) Basophils % (Manual) Nucleated RBC % Seg Neutrophils # Seg Neutrophils # Man Lymphocytes # (Manual) Monocytes # (Manual) Eosinophils # (Manual) Basophils # (Manual) PT INR Fibrinogen dRVVT Confirm Interp Factor V Activity POC ABG pH POC ABG pCO2 POC ABG pO2 ABG pO2 ABG HCO3 ABG Base Excess ABG Hemoglobin Oxyhemoglobin Sodium Potassium Chloride Carbon Dioxide BUN Creatinine Glucose POC Glucose 136 H 177 H 139 H Lactic Acid Calcium Phosphorus Magnesium Direct Bilirubin AST ALT Alkaline Phosphatase Lactate Dehydrogenase Troponin T C-Reactive Protein Total Protein Albumin Prealbumin Triglycerides Cholesterol LDL Cholesterol Direct HDL Cholesterol Urine pH Urine WBC (Auto) Urine Creatinine Urine Total Protein Fluid Total Protein Vancomycin Trough Rheumatoid Factor Complement C4 Miscellaneous Test Crossmatch 12/02/16 12/03/16 12/03/16 23:43 04:00 04:00 WBC 20.4 H RBC 2.74 L Hgb 7.4 L Hct 23.6 L MCV MCH 27 L MCHC RDW 17.1 H Plt Count Lymph % (Auto) [place] % (Auto) Lymph # [place] # Baso # Seg Neutrophils % Seg Neuts % (Manual) 31.0 L Lymphocytes % (Manual) Monocytes % (Manual) Eosinophils % (Manual) Basophils % (Manual) Nucleated RBC % Seg Neutrophils # Seg Neutrophils # Man Lymphocytes # (Manual) Monocytes # (Manual) Eosinophils # (Manual) Basophils # (Manual) PT INR Fibrinogen dRVVT Confirm Interp Factor V Activity POC ABG pH POC ABG pCO2 POC ABG pO2 ABG pO2 ABG HCO3 ABG Base Excess ABG Hemoglobin Oxyhemoglobin Sodium Potassium Chloride Carbon Dioxide BUN 61 H Creatinine 1.6 H Glucose 119 H POC Glucose 158 H Lactic Acid Calcium Phosphorus Magnesium Direct Bilirubin AST ALT Alkaline Phosphatase Lactate Dehydrogenase Troponin T C-Reactive Protein Total Protein Albumin Prealbumin Triglycerides Cholesterol LDL Cholesterol Direct HDL Cholesterol Urine pH Urine WBC (Auto) Urine Creatinine Urine Total Protein Fluid Total Protein Vancomycin Trough Rheumatoid Factor Complement C4 Miscellaneous Test Crossmatch 12/03/16 12/03/16 12/03/16 05:02 12:11 18:16 WBC RBC Hgb Hct MCV MCH MCHC RDW Plt Count Lymph % (Auto) [place] % (Auto) Lymph # [place] # Baso # Seg Neutrophils % Seg Neuts % (Manual) Lymphocytes % (Manual) Monocytes % (Manual) Eosinophils % (Manual) Basophils % (Manual) Nucleated RBC % Seg Neutrophils # Seg Neutrophils # Man Lymphocytes # (Manual) Monocytes # (Manual) Eosinophils # (Manual) Basophils # (Manual) PT INR Fibrinogen dRVVT Confirm Interp Factor V Activity POC ABG pH POC ABG pCO2 POC ABG pO2 ABG pO2 ABG HCO3 ABG Base Excess ABG Hemoglobin Oxyhemoglobin Sodium Potassium Chloride Carbon Dioxide BUN Creatinine Glucose POC Glucose 146 H 157 H 124 H Lactic Acid Calcium Phosphorus Magnesium Direct Bilirubin AST ALT Alkaline Phosphatase Lactate Dehydrogenase Troponin T C-Reactive Protein Total Protein Albumin Prealbumin Triglycerides Cholesterol LDL Cholesterol Direct HDL Cholesterol Urine pH Urine WBC (Auto) Urine Creatinine Urine Total Protein Fluid Total Protein Vancomycin Trough Rheumatoid Factor Complement C4 Miscellaneous Test Crossmatch 12/03/16 12/04/16 12/04/16 23:41 04:00 04:45 WBC RBC Hgb Hct MCV MCH MCHC RDW Plt Count Lymph % (Auto) [place] % (Auto) Lymph # [place] # Baso # Seg Neutrophils % Seg Neuts % (Manual) Lymphocytes % (Manual) Monocytes % (Manual) Eosinophils % (Manual) Basophils % (Manual) Nucleated RBC % Seg Neutrophils # Seg Neutrophils # Man Lymphocytes # (Manual) Monocytes # (Manual) Eosinophils # (Manual) Basophils # (Manual) PT INR Fibrinogen dRVVT Confirm Interp Factor V Activity POC ABG pH POC ABG pCO2 POC ABG pO2 ABG pO2 ABG HCO3 ABG Base Excess ABG Hemoglobin Oxyhemoglobin Sodium Potassium Chloride Carbon Dioxide BUN 76 H Creatinine 1.6 H Glucose POC Glucose 130 H 136 H Lactic Acid Calcium Phosphorus Magnesium Direct Bilirubin AST ALT Alkaline Phosphatase 155 H Lactate Dehydrogenase Troponin T C-Reactive Protein Total Protein 5.5 L Albumin 1.5 L Prealbumin Triglycerides Cholesterol LDL Cholesterol Direct HDL Cholesterol Urine pH Urine WBC (Auto) Urine Creatinine Urine Total Protein Fluid Total Protein Vancomycin Trough Rheumatoid Factor Complement C4 Miscellaneous Test Crossmatch 12/04/16 12/04/16 12/05/16 12:08 17:23 00:10 WBC RBC Hgb Hct MCV MCH MCHC RDW Plt Count Lymph % (Auto) [place] % (Auto) Lymph # [place] # Baso # Seg Neutrophils % Seg Neuts % (Manual) Lymphocytes % (Manual) Monocytes % (Manual) Eosinophils % (Manual) Basophils % (Manual) Nucleated RBC % Seg Neutrophils # Seg Neutrophils # Man Lymphocytes # (Manual) Monocytes # (Manual) Eosinophils # (Manual) Basophils # (Manual) PT INR Fibrinogen dRVVT Confirm Interp Factor V Activity POC ABG pH POC ABG pCO2 POC ABG pO2 ABG pO2 ABG HCO3 ABG Base Excess ABG Hemoglobin Oxyhemoglobin Sodium Potassium Chloride Carbon Dioxide BUN Creatinine Glucose POC Glucose 114 H 129 H 124 H Lactic Acid Calcium Phosphorus Magnesium Direct Bilirubin AST ALT Alkaline Phosphatase Lactate Dehydrogenase Troponin T C-Reactive Protein Total Protein Albumin Prealbumin Triglycerides Cholesterol LDL Cholesterol Direct HDL Cholesterol Urine pH Urine WBC (Auto) Urine Creatinine Urine Total Protein Fluid Total Protein Vancomycin Trough Rheumatoid Factor Complement C4 Miscellaneous Test Crossmatch 12/05/16 12/05/16 12/05/16 05:00 05:00 05:18 WBC RBC Hgb Hct MCV MCH MCHC RDW Plt Count Lymph % (Auto) [place] % (Auto) Lymph # [place] # Baso # Seg Neutrophils % Seg Neuts % (Manual) Lymphocytes % (Manual) Monocytes % (Manual) Eosinophils % (Manual) Basophils % (Manual) Nucleated RBC % Seg Neutrophils # Seg Neutrophils # Man Lymphocytes # (Manual) Monocytes # (Manual) Eosinophils # (Manual) Basophils # (Manual) PT INR Fibrinogen dRVVT Confirm Interp Factor V Activity POC ABG pH POC ABG pCO2 POC ABG pO2 ABG pO2 ABG HCO3 ABG Base Excess ABG Hemoglobin Oxyhemoglobin Sodium Potassium Chloride Carbon Dioxide 21 L BUN 85 H Creatinine 1.9 H Glucose 131 H POC Glucose 154 H Lactic Acid Calcium Phosphorus Magnesium Direct Bilirubin AST ALT Alkaline Phosphatase Lactate Dehydrogenase Troponin T C-Reactive Protein 19.30 H Total Protein Albumin Prealbumin Triglycerides Cholesterol LDL Cholesterol Direct HDL Cholesterol Urine pH Urine WBC (Auto) Urine Creatinine Urine Total Protein Fluid Total Protein Vancomycin Trough Rheumatoid Factor Complement C4 Miscellaneous Test Crossmatch 12/05/16 12/05/16 12/05/16 11:43 17:46 23:25 WBC RBC Hgb Hct MCV MCH MCHC RDW Plt Count Lymph % (Auto) [place] % (Auto) Lymph # [place] # Baso # Seg Neutrophils % Seg Neuts % (Manual) Lymphocytes % (Manual) Monocytes % (Manual) Eosinophils % (Manual) Basophils % (Manual) Nucleated RBC % Seg Neutrophils # Seg Neutrophils # Man Lymphocytes # (Manual) Monocytes # (Manual) Eosinophils # (Manual) Basophils # (Manual) PT INR Fibrinogen dRVVT Confirm Interp Factor V Activity POC ABG pH POC ABG pCO2 POC ABG pO2 ABG pO2 ABG HCO3 ABG Base Excess ABG Hemoglobin Oxyhemoglobin Sodium Potassium Chloride Carbon Dioxide BUN Creatinine Glucose POC Glucose 117 H 113 H 111 H Lactic Acid Calcium Phosphorus Magnesium Direct Bilirubin AST ALT Alkaline Phosphatase Lactate Dehydrogenase Troponin T C-Reactive Protein Total Protein Albumin Prealbumin Triglycerides Cholesterol LDL Cholesterol Direct HDL Cholesterol Urine pH Urine WBC (Auto) Urine Creatinine Urine Total Protein Fluid Total Protein Vancomycin Trough Rheumatoid Factor Complement C4 Miscellaneous Test Crossmatch 12/05/16 12/06/16 12/06/16 Unknown 04:58 06:00 WBC RBC Hgb Hct MCV MCH MCHC RDW Plt Count Lymph % (Auto) [place] % (Auto) Lymph # [place] # Baso # Seg Neutrophils % Seg Neuts % (Manual) Lymphocytes % (Manual) Monocytes % (Manual) Eosinophils % (Manual) Basophils % (Manual) Nucleated RBC % Seg Neutrophils # Seg Neutrophils # Man Lymphocytes # (Manual) Monocytes # (Manual) Eosinophils # (Manual) Basophils # (Manual) PT INR Fibrinogen dRVVT Confirm Interp Factor V Activity POC ABG pH POC ABG pCO2 POC ABG pO2 ABG pO2 75.2 L ABG HCO3 ABG Base Excess -3.4 L ABG Hemoglobin 7.4 L Oxyhemoglobin 94.5 L Sodium Potassium Chloride Carbon Dioxide 20 L BUN 99 H Creatinine 2.1 H Glucose 126 H POC Glucose 145 H Lactic Acid Calcium Phosphorus 4.80 H Magnesium Direct Bilirubin AST ALT Alkaline Phosphatase Lactate Dehydrogenase Troponin T C-Reactive Protein Total Protein Albumin Prealbumin Triglycerides Cholesterol LDL Cholesterol Direct HDL Cholesterol Urine pH Urine WBC (Auto) Urine Creatinine Urine Total Protein Fluid Total Protein Vancomycin Trough Rheumatoid Factor Complement C4 Miscellaneous Test Crossmatch 12/06/16 12/06/16 12/06/16 06:46 11:54 17:55 WBC RBC Hgb 8.3 L Hct 26.4 L MCV MCH MCHC RDW Plt Count Lymph % (Auto) [place] % (Auto) Lymph # [place] # Baso # Seg Neutrophils % Seg Neuts % (Manual) Lymphocytes % (Manual) Monocytes % (Manual) Eosinophils % (Manual) Basophils % (Manual) Nucleated RBC % Seg Neutrophils # Seg Neutrophils # Man Lymphocytes # (Manual) Monocytes # (Manual) Eosinophils # (Manual) Basophils # (Manual) PT INR Fibrinogen dRVVT Confirm Interp Factor V Activity POC ABG pH POC ABG pCO2 POC ABG pO2 ABG pO2 ABG HCO3 ABG Base Excess ABG Hemoglobin Oxyhemoglobin Sodium Potassium Chloride Carbon Dioxide BUN Creatinine Glucose POC Glucose 126 H 157 H Lactic Acid Calcium Phosphorus Magnesium Direct Bilirubin AST ALT Alkaline Phosphatase Lactate Dehydrogenase Troponin T C-Reactive Protein Total Protein Albumin Prealbumin Triglycerides Cholesterol LDL Cholesterol Direct HDL Cholesterol Urine pH Urine WBC (Auto) Urine Creatinine Urine Total Protein Fluid Total Protein Vancomycin Trough Rheumatoid Factor Complement C4 Miscellaneous Test Crossmatch 12/06/16 12/07/16 12/07/16 23:59 05:34 06:30 WBC RBC Hgb Hct MCV MCH MCHC RDW Plt Count Lymph % (Auto) [place] % (Auto) Lymph # [place] # Baso # Seg Neutrophils % Seg Neuts % (Manual) Lymphocytes % (Manual) Monocytes % (Manual) Eosinophils % (Manual) Basophils % (Manual) Nucleated RBC % Seg Neutrophils # Seg Neutrophils # Man Lymphocytes # (Manual) Monocytes # (Manual) Eosinophils # (Manual) Basophils # (Manual) PT INR Fibrinogen dRVVT Confirm Interp Factor V Activity POC ABG pH POC ABG pCO2 POC ABG pO2 ABG pO2 ABG HCO3 ABG Base Excess ABG Hemoglobin Oxyhemoglobin Sodium Potassium Chloride Carbon Dioxide BUN 67 H Creatinine 1.4 H Glucose 126 H POC Glucose 129 H 129 H Lactic Acid Calcium Phosphorus Magnesium Direct Bilirubin AST ALT Alkaline Phosphatase Lactate Dehydrogenase Troponin T C-Reactive Protein Total Protein Albumin Prealbumin Triglycerides Cholesterol LDL Cholesterol Direct HDL Cholesterol Urine pH Urine WBC (Auto) Urine Creatinine Urine Total Protein Fluid Total Protein Vancomycin Trough Rheumatoid Factor Complement C4 Miscellaneous Test Crossmatch 12/07/16 12/07/16 12/07/16 06:30 08:00 09:45 WBC 18.8 H RBC 2.52 L Hgb 6.9 L 6.8 L Hct 21.2 L 21.1 L MCV MCH 27 L MCHC RDW 18.0 H Plt Count Lymph % (Auto) [place] % (Auto) 9.9 H Lymph # [place] # 1.9 H Baso # Seg Neutrophils % 71.8 H Seg Neuts % (Manual) Lymphocytes % (Manual) Monocytes % (Manual) Eosinophils % (Manual) Basophils % (Manual) Nucleated RBC % Seg Neutrophils # 13.5 H Seg Neutrophils # Man Lymphocytes # (Manual) Monocytes # (Manual) Eosinophils # (Manual) Basophils # (Manual) PT INR Fibrinogen dRVVT Confirm Interp Factor V Activity POC ABG pH POC ABG pCO2 POC ABG pO2 ABG pO2 ABG HCO3 ABG Base Excess ABG Hemoglobin Oxyhemoglobin Sodium Potassium Chloride Carbon Dioxide BUN Creatinine Glucose POC Glucose Lactic Acid Calcium Phosphorus Magnesium Direct Bilirubin AST ALT Alkaline Phosphatase Lactate Dehydrogenase Troponin T C-Reactive Protein Total Protein Albumin Prealbumin Triglycerides Cholesterol LDL Cholesterol Direct HDL Cholesterol Urine pH Urine WBC (Auto) Urine Creatinine Urine Total Protein Fluid Total Protein Vancomycin Trough Rheumatoid Factor Complement C4 Miscellaneous Test Crossmatch See Detail 12/07/16 12/07/16 12/07/16 11:44 18:19 23:59 WBC RBC Hgb Hct MCV MCH MCHC RDW Plt Count Lymph % (Auto) [place] % (Auto) Lymph # [place] # Baso # Seg Neutrophils % Seg Neuts % (Manual) Lymphocytes % (Manual) Monocytes % (Manual) Eosinophils % (Manual) Basophils % (Manual) Nucleated RBC % Seg Neutrophils # Seg Neutrophils # Man Lymphocytes # (Manual) Monocytes # (Manual) Eosinophils # (Manual) Basophils # (Manual) PT INR Fibrinogen dRVVT Confirm Interp Factor V Activity POC ABG pH POC ABG pCO2 POC ABG pO2 ABG pO2 ABG HCO3 ABG Base Excess ABG Hemoglobin Oxyhemoglobin Sodium Potassium Chloride Carbon Dioxide BUN Creatinine Glucose POC Glucose 137 H 138 H 133 H Lactic Acid Calcium Phosphorus Magnesium Direct Bilirubin AST ALT Alkaline Phosphatase Lactate Dehydrogenase Troponin T C-Reactive Protein Total Protein Albumin Prealbumin Triglycerides Cholesterol LDL Cholesterol Direct HDL Cholesterol Urine pH Urine WBC (Auto) Urine Creatinine Urine Total Protein Fluid Total Protein Vancomycin Trough Rheumatoid Factor Complement C4 Miscellaneous Test Crossmatch 12/08/16 12/08/16 12/08/16 05:25 05:30 05:30 WBC 23.8 H RBC 2.88 L Hgb 8.1 L Hct 24.3 L MCV MCH MCHC RDW 16.7 H Plt Count Lymph % (Auto) [place] % (Auto) Lymph # [place] # Baso # Seg Neutrophils % Seg Neuts % (Manual) 76.0 H Lymphocytes % (Manual) 9.0 L Monocytes % (Manual) 9.0 H Eosinophils % (Manual) Basophils % (Manual) Nucleated RBC % Seg Neutrophils # Seg Neutrophils # Man 18.1 H Lymphocytes # (Manual) Monocytes # (Manual) 2.1 H Eosinophils # (Manual) Basophils # (Manual) PT INR Fibrinogen dRVVT Confirm Interp Factor V Activity POC ABG pH POC ABG pCO2 POC ABG pO2 ABG pO2 ABG HCO3 ABG Base Excess ABG Hemoglobin Oxyhemoglobin Sodium Potassium Chloride Carbon Dioxide 21 L BUN 76 H Creatinine 1.6 H Glucose 133 H POC Glucose 177 H Lactic Acid Calcium Phosphorus Magnesium Direct Bilirubin AST ALT Alkaline Phosphatase Lactate Dehydrogenase Troponin T C-Reactive Protein Total Protein Albumin Prealbumin Triglycerides Cholesterol LDL Cholesterol Direct HDL Cholesterol Urine pH Urine WBC (Auto) Urine Creatinine Urine Total Protein Fluid Total Protein Vancomycin Trough Rheumatoid Factor Complement C4 Miscellaneous Test Crossmatch 12/08/16 12/08/16 12/09/16 11:45 18:00 00:00 WBC RBC Hgb Hct MCV MCH MCHC RDW Plt Count Lymph % (Auto) [place] % (Auto) Lymph # [place] # Baso # Seg Neutrophils % Seg Neuts % (Manual) Lymphocytes % (Manual) Monocytes % (Manual) Eosinophils % (Manual) Basophils % (Manual) Nucleated RBC % Seg Neutrophils # Seg Neutrophils # Man Lymphocytes # (Manual) Monocytes # (Manual) Eosinophils # (Manual) Basophils # (Manual) PT INR Fibrinogen dRVVT Confirm Interp Factor V Activity POC ABG pH POC ABG pCO2 POC ABG pO2 ABG pO2 ABG HCO3 ABG Base Excess ABG Hemoglobin Oxyhemoglobin Sodium Potassium Chloride Carbon Dioxide BUN Creatinine Glucose POC Glucose 163 H 123 H 137 H Lactic Acid Calcium Phosphorus Magnesium Direct Bilirubin AST ALT Alkaline Phosphatase Lactate Dehydrogenase Troponin T C-Reactive Protein Total Protein Albumin Prealbumin Triglycerides Cholesterol LDL Cholesterol Direct HDL Cholesterol Urine pH Urine WBC (Auto) Urine Creatinine Urine Total Protein Fluid Total Protein Vancomycin Trough Rheumatoid Factor Complement C4 Miscellaneous Test Crossmatch 12/09/16 12/09/16 12/09/16 05:34 06:00 06:00 WBC 15.5 H RBC 2.87 L Hgb 8.0 L Hct 24.2 L MCV MCH MCHC RDW 17.2 H Plt Count Lymph % (Auto) [place] % (Auto) 11.6 H Lymph # [place] # 1.8 H Baso # Seg Neutrophils % 70.8 H Seg Neuts % (Manual) Lymphocytes % (Manual) Monocytes % (Manual) Eosinophils % (Manual) Basophils % (Manual) Nucleated RBC % Seg Neutrophils # 11.0 H Seg Neutrophils # Man Lymphocytes # (Manual) Monocytes # (Manual) Eosinophils # (Manual) Basophils # (Manual) PT INR Fibrinogen dRVVT Confirm Interp Factor V Activity POC ABG pH POC ABG pCO2 POC ABG pO2 ABG pO2 ABG HCO3 ABG Base Excess ABG Hemoglobin Oxyhemoglobin Sodium Potassium Chloride Carbon Dioxide BUN 51 H Creatinine Glucose 117 H POC Glucose 136 H Lactic Acid Calcium Phosphorus Magnesium Direct Bilirubin AST ALT Alkaline Phosphatase Lactate Dehydrogenase Troponin T C-Reactive Protein Total Protein Albumin Prealbumin Triglycerides Cholesterol LDL Cholesterol Direct HDL Cholesterol Urine pH Urine WBC (Auto) Urine Creatinine Urine Total Protein Fluid Total Protein Vancomycin Trough Rheumatoid Factor Complement C4 Miscellaneous Test Crossmatch 12/09/16 12/09/16 12/09/16 12:29 17:52 23:10 WBC RBC Hgb Hct MCV MCH MCHC RDW Plt Count Lymph % (Auto) [place] % (Auto) Lymph # [place] # Baso # Seg Neutrophils % Seg Neuts % (Manual) Lymphocytes % (Manual) Monocytes % (Manual) Eosinophils % (Manual) Basophils % (Manual) Nucleated RBC % Seg Neutrophils # Seg Neutrophils # Man Lymphocytes # (Manual) Monocytes # (Manual) Eosinophils # (Manual) Basophils # (Manual) PT INR Fibrinogen dRVVT Confirm Interp Factor V Activity POC ABG pH POC ABG pCO2 POC ABG pO2 ABG pO2 ABG HCO3 ABG Base Excess ABG Hemoglobin Oxyhemoglobin Sodium Potassium Chloride Carbon Dioxide BUN Creatinine Glucose POC Glucose 139 H 140 H 129 H Lactic Acid Calcium Phosphorus Magnesium Direct Bilirubin AST ALT Alkaline Phosphatase Lactate Dehydrogenase Troponin T C-Reactive Protein Total Protein Albumin Prealbumin Triglycerides Cholesterol LDL Cholesterol Direct HDL Cholesterol Urine pH Urine WBC (Auto) Urine Creatinine Urine Total Protein Fluid Total Protein Vancomycin Trough Rheumatoid Factor Complement C4 Miscellaneous Test Crossmatch 12/10/16 12/10/16 12/10/16 05:00 05:00 06:54 WBC 15.7 H RBC 2.87 L Hgb 8.2 L Hct 24.4 L MCV MCH MCHC RDW 17.2 H Plt Count Lymph % (Auto) [place] % (Auto) 8.3 H Lymph # [place] # 1.3 H Baso # Seg Neutrophils % 72.8 H Seg Neuts % (Manual) Lymphocytes % (Manual) Monocytes % (Manual) Eosinophils % (Manual) Basophils % (Manual) Nucleated RBC % Seg Neutrophils # 11.4 H Seg Neutrophils # Man Lymphocytes # (Manual) Monocytes # (Manual) Eosinophils # (Manual) Basophils # (Manual) PT INR Fibrinogen dRVVT Confirm Interp Factor V Activity POC ABG pH POC ABG pCO2 POC ABG pO2 ABG pO2 ABG HCO3 ABG Base Excess ABG Hemoglobin Oxyhemoglobin Sodium Potassium Chloride Carbon Dioxide BUN 64 H Creatinine 1.4 H Glucose 134 H POC Glucose 154 H Lactic Acid Calcium Phosphorus Magnesium Direct Bilirubin AST ALT Alkaline Phosphatase Lactate Dehydrogenase Troponin T C-Reactive Protein Total Protein Albumin Prealbumin Triglycerides Cholesterol LDL Cholesterol Direct HDL Cholesterol Urine pH Urine WBC (Auto) Urine Creatinine Urine Total Protein Fluid Total Protein Vancomycin Trough Rheumatoid Factor Complement C4 Miscellaneous Test Crossmatch 12/10/16 12/10/16 12/10/16 11:58 17:29 23:52 WBC RBC Hgb Hct MCV MCH MCHC RDW Plt Count Lymph % (Auto) [place] % (Auto) Lymph # [place] # Baso # Seg Neutrophils % Seg Neuts % (Manual) Lymphocytes % (Manual) Monocytes % (Manual) Eosinophils % (Manual) Basophils % (Manual) Nucleated RBC % Seg Neutrophils # Seg Neutrophils # Man Lymphocytes # (Manual) Monocytes # (Manual) Eosinophils # (Manual) Basophils # (Manual) PT INR Fibrinogen dRVVT Confirm Interp Factor V Activity POC ABG pH POC ABG pCO2 POC ABG pO2 ABG pO2 ABG HCO3 ABG Base Excess ABG Hemoglobin Oxyhemoglobin Sodium Potassium Chloride Carbon Dioxide BUN Creatinine Glucose POC Glucose 144 H 163 H 125 H Lactic Acid Calcium Phosphorus Magnesium Direct Bilirubin AST ALT Alkaline Phosphatase Lactate Dehydrogenase Troponin T C-Reactive Protein Total Protein Albumin Prealbumin Triglycerides Cholesterol LDL Cholesterol Direct HDL Cholesterol Urine pH Urine WBC (Auto) Urine Creatinine Urine Total Protein Fluid Total Protein Vancomycin Trough Rheumatoid Factor Complement C4 Miscellaneous Test Crossmatch 12/11/16 12/11/16 12/11/16 05:38 06:30 06:30 WBC 14.4 H RBC 2.76 L Hgb 7.7 L Hct 23.4 L MCV MCH MCHC RDW 17.2 H Plt Count Lymph % (Auto) [place] % (Auto) 8.8 H Lymph # [place] # 1.3 H Baso # Seg Neutrophils % 72.5 H Seg Neuts % (Manual) Lymphocytes % (Manual) Monocytes % (Manual) Eosinophils % (Manual) Basophils % (Manual) Nucleated RBC % Seg Neutrophils # 10.5 H Seg Neutrophils # Man Lymphocytes # (Manual) Monocytes # (Manual) Eosinophils # (Manual) Basophils # (Manual) PT INR Fibrinogen dRVVT Confirm Interp Factor V Activity POC ABG pH POC ABG pCO2 POC ABG pO2 ABG pO2 ABG HCO3 ABG Base Excess ABG Hemoglobin Oxyhemoglobin Sodium Potassium Chloride Carbon Dioxide BUN 43 H Creatinine Glucose 124 H POC Glucose 141 H Lactic Acid Calcium 8.3 L Phosphorus Magnesium 1.60 L Direct Bilirubin AST ALT Alkaline Phosphatase Lactate Dehydrogenase Troponin T C-Reactive Protein Total Protein Albumin Prealbumin Triglycerides Cholesterol LDL Cholesterol Direct HDL Cholesterol Urine pH Urine WBC (Auto) Urine Creatinine Urine Total Protein Fluid Total Protein Vancomycin Trough Rheumatoid Factor Complement C4 Miscellaneous Test Crossmatch 12/11/16 12/11/16 12/11/16 11:15 17:59 23:48 WBC RBC Hgb Hct MCV MCH MCHC RDW Plt Count Lymph % (Auto) [place] % (Auto) Lymph # [place] # Baso # Seg Neutrophils % Seg Neuts % (Manual) Lymphocytes % (Manual) Monocytes % (Manual) Eosinophils % (Manual) Basophils % (Manual) Nucleated RBC % Seg Neutrophils # Seg Neutrophils # Man Lymphocytes # (Manual) Monocytes # (Manual) Eosinophils # (Manual) Basophils # (Manual) PT INR Fibrinogen dRVVT Confirm Interp Factor V Activity POC ABG pH POC ABG pCO2 POC ABG pO2 ABG pO2 ABG HCO3 ABG Base Excess ABG Hemoglobin Oxyhemoglobin Sodium Potassium Chloride Carbon Dioxide BUN Creatinine Glucose POC Glucose 188 H 106 H 119 H Lactic Acid Calcium Phosphorus Magnesium Direct Bilirubin AST ALT Alkaline Phosphatase Lactate Dehydrogenase Troponin T C-Reactive Protein Total Protein Albumin Prealbumin Triglycerides Cholesterol LDL Cholesterol Direct HDL Cholesterol Urine pH Urine WBC (Auto) Urine Creatinine Urine Total Protein Fluid Total Protein Vancomycin Trough Rheumatoid Factor Complement C4 Miscellaneous Test Crossmatch 12/12/16 12/12/16 12/12/16 05:00 06:01 12:20 WBC 16.7 H RBC 2.87 L Hgb 8.0 L Hct 24.2 L MCV MCH MCHC RDW 17.6 H Plt Count Lymph % (Auto) [place] % (Auto) Lymph # [place] # 1.2 H Baso # Seg Neutrophils % 75.3 H Seg Neuts % (Manual) Lymphocytes % (Manual) Monocytes % (Manual) Eosinophils % (Manual) Basophils % (Manual) Nucleated RBC % Seg Neutrophils # 12.6 H Seg Neutrophils # Man Lymphocytes # (Manual) Monocytes # (Manual) Eosinophils # (Manual) Basophils # (Manual) PT INR Fibrinogen dRVVT Confirm Interp Factor V Activity POC ABG pH POC ABG pCO2 POC ABG pO2 ABG pO2 ABG HCO3 ABG Base Excess ABG Hemoglobin Oxyhemoglobin Sodium Potassium Chloride Carbon Dioxide BUN Creatinine Glucose POC Glucose 134 H 149 H Lactic Acid Calcium Phosphorus Magnesium Direct Bilirubin AST ALT Alkaline Phosphatase Lactate Dehydrogenase Troponin T C-Reactive Protein Total Protein Albumin Prealbumin Triglycerides Cholesterol LDL Cholesterol Direct HDL Cholesterol Urine pH Urine WBC (Auto) Urine Creatinine Urine Total Protein Fluid Total Protein Vancomycin Trough Rheumatoid Factor Complement C4 Miscellaneous Test Crossmatch 12/12/16 12/12/16 12/12/16 17:38 23:01 Unknown WBC RBC Hgb Hct MCV MCH MCHC RDW Plt Count Lymph % (Auto) [place] % (Auto) Lymph # [place] # Baso # Seg Neutrophils % Seg Neuts % (Manual) Lymphocytes % (Manual) Monocytes % (Manual) Eosinophils % (Manual) Basophils % (Manual) Nucleated RBC % Seg Neutrophils # Seg Neutrophils # Man Lymphocytes # (Manual) Monocytes # (Manual) Eosinophils # (Manual) Basophils # (Manual) PT INR Fibrinogen dRVVT Confirm Interp Factor V Activity POC ABG pH POC ABG pCO2 POC ABG pO2 ABG pO2 ABG HCO3 ABG Base Excess ABG Hemoglobin Oxyhemoglobin Sodium Potassium Chloride Carbon Dioxide BUN 60 H Creatinine 1.3 H Glucose 126 H POC Glucose 127 H 144 H Lactic Acid Calcium Phosphorus Magnesium Direct Bilirubin AST ALT Alkaline Phosphatase Lactate Dehydrogenase Troponin T C-Reactive Protein Total Protein Albumin Prealbumin Triglycerides Cholesterol LDL Cholesterol Direct HDL Cholesterol Urine pH Urine WBC (Auto) Urine Creatinine Urine Total Protein Fluid Total Protein Vancomycin Trough Rheumatoid Factor Complement C4 Miscellaneous Test Crossmatch 12/13/16 12/13/16 12/13/16 04:00 04:00 05:19 WBC 18.7 H RBC 2.89 L Hgb 8.3 L Hct 24.6 L MCV MCH MCHC RDW 17.5 H Plt Count Lymph % (Auto) [place] % (Auto) Lymph # [place] # 1.3 H Baso # Seg Neutrophils % 71.5 H Seg Neuts % (Manual) Lymphocytes % (Manual) Monocytes % (Manual) Eosinophils % (Manual) Basophils % (Manual) Nucleated RBC % Seg Neutrophils # 13.4 H Seg Neutrophils # Man Lymphocytes # (Manual) Monocytes # (Manual) Eosinophils # (Manual) Basophils # (Manual) PT INR Fibrinogen dRVVT Confirm Interp Factor V Activity POC ABG pH POC ABG pCO2 POC ABG pO2 ABG pO2 ABG HCO3 ABG Base Excess ABG Hemoglobin Oxyhemoglobin Sodium Potassium Chloride Carbon Dioxide BUN 73 H Creatinine 1.5 H Glucose 141 H POC Glucose 171 H Lactic Acid Calcium Phosphorus Magnesium Direct Bilirubin AST ALT Alkaline Phosphatase Lactate Dehydrogenase Troponin T C-Reactive Protein Total Protein Albumin Prealbumin Triglycerides Cholesterol LDL Cholesterol Direct HDL Cholesterol Urine pH Urine WBC (Auto) Urine Creatinine Urine Total Protein Fluid Total Protein Vancomycin Trough Rheumatoid Factor Complement C4 Miscellaneous Test Crossmatch 12/13/16 12/13/16 12/14/16 12:28 16:48 00:01 WBC RBC Hgb Hct MCV MCH MCHC RDW Plt Count Lymph % (Auto) [place] % (Auto) Lymph # [place] # Baso # Seg Neutrophils % Seg Neuts % (Manual) Lymphocytes % (Manual) Monocytes % (Manual) Eosinophils % (Manual) Basophils % (Manual) Nucleated RBC % Seg Neutrophils # Seg Neutrophils # Man Lymphocytes # (Manual) Monocytes # (Manual) Eosinophils # (Manual) Basophils # (Manual) PT INR Fibrinogen dRVVT Confirm Interp Factor V Activity POC ABG pH POC ABG pCO2 POC ABG pO2 ABG pO2 ABG HCO3 ABG Base Excess ABG Hemoglobin Oxyhemoglobin Sodium Potassium Chloride Carbon Dioxide BUN Creatinine Glucose POC Glucose 206 H 173 H 139 H Lactic Acid Calcium Phosphorus Magnesium Direct Bilirubin AST ALT Alkaline Phosphatase Lactate Dehydrogenase Troponin T C-Reactive Protein Total Protein Albumin Prealbumin Triglycerides Cholesterol LDL Cholesterol Direct HDL Cholesterol Urine pH Urine WBC (Auto) Urine Creatinine Urine Total Protein Fluid Total Protein Vancomycin Trough Rheumatoid Factor Complement C4 Miscellaneous Test Crossmatch 12/14/16 12/14/16 12/14/16 05:16 06:10 11:17 WBC RBC Hgb Hct MCV MCH MCHC RDW Plt Count Lymph % (Auto) [place] % (Auto) Lymph # [place] # Baso # Seg Neutrophils % Seg Neuts % (Manual) Lymphocytes % (Manual) Monocytes % (Manual) Eosinophils % (Manual) Basophils % (Manual) Nucleated RBC % Seg Neutrophils # Seg Neutrophils # Man Lymphocytes # (Manual) Monocytes # (Manual) Eosinophils # (Manual) Basophils # (Manual) PT INR Fibrinogen dRVVT Confirm Interp Factor V Activity POC ABG pH POC ABG pCO2 POC ABG pO2 ABG pO2 ABG HCO3 ABG Base Excess ABG Hemoglobin Oxyhemoglobin Sodium Potassium Chloride Carbon Dioxide BUN 57 H Creatinine 1.4 H Glucose 135 H POC Glucose 158 H 137 H Lactic Acid Calcium Phosphorus Magnesium Direct Bilirubin AST ALT Alkaline Phosphatase Lactate Dehydrogenase Troponin T C-Reactive Protein Total Protein Albumin Prealbumin Triglycerides Cholesterol LDL Cholesterol Direct HDL Cholesterol Urine pH Urine WBC (Auto) Urine Creatinine Urine Total Protein Fluid Total Protein Vancomycin Trough Rheumatoid Factor Complement C4 Miscellaneous Test Crossmatch 12/14/16 12/14/16 12/15/16 17:52 23:27 04:00 WBC RBC Hgb Hct MCV MCH MCHC RDW Plt Count Lymph % (Auto) [place] % (Auto) Lymph # [place] # Baso # Seg Neutrophils % Seg Neuts % (Manual) Lymphocytes % (Manual) Monocytes % (Manual) Eosinophils % (Manual) Basophils % (Manual) Nucleated RBC % Seg Neutrophils # Seg Neutrophils # Man Lymphocytes # (Manual) Monocytes # (Manual) Eosinophils # (Manual) Basophils # (Manual) PT INR Fibrinogen dRVVT Confirm Interp Factor V Activity POC ABG pH POC ABG pCO2 POC ABG pO2 ABG pO2 ABG HCO3 ABG Base Excess ABG Hemoglobin Oxyhemoglobin Sodium Potassium Chloride 97.9 L Carbon Dioxide BUN 75 H Creatinine 1.6 H Glucose 122 H POC Glucose 149 H 163 H Lactic Acid Calcium Phosphorus 5.20 H Magnesium Direct Bilirubin AST ALT Alkaline Phosphatase Lactate Dehydrogenase Troponin T C-Reactive Protein Total Protein Albumin Prealbumin Triglycerides Cholesterol LDL Cholesterol Direct HDL Cholesterol Urine pH Urine WBC (Auto) Urine Creatinine Urine Total Protein Fluid Total Protein Vancomycin Trough Rheumatoid Factor Complement C4 Miscellaneous Test Crossmatch 12/15/16 12/15/16 12/15/16 05:50 11:24 17:01 WBC RBC Hgb Hct MCV MCH MCHC RDW Plt Count Lymph % (Auto) [place] % (Auto) Lymph # [place] # Baso # Seg Neutrophils % Seg Neuts % (Manual) Lymphocytes % (Manual) Monocytes % (Manual) Eosinophils % (Manual) Basophils % (Manual) Nucleated RBC % Seg Neutrophils # Seg Neutrophils # Man Lymphocytes # (Manual) Monocytes # (Manual) Eosinophils # (Manual) Basophils # (Manual) PT INR Fibrinogen dRVVT Confirm Interp Factor V Activity POC ABG pH POC ABG pCO2 POC ABG pO2 ABG pO2 ABG HCO3 ABG Base Excess ABG Hemoglobin Oxyhemoglobin Sodium Potassium Chloride Carbon Dioxide BUN Creatinine Glucose POC Glucose 150 H 146 H 167 H Lactic Acid Calcium Phosphorus Magnesium Direct Bilirubin AST ALT Alkaline Phosphatase Lactate Dehydrogenase Troponin T C-Reactive Protein Total Protein Albumin Prealbumin Triglycerides Cholesterol LDL Cholesterol Direct HDL Cholesterol Urine pH Urine WBC (Auto) Urine Creatinine Urine Total Protein Fluid Total Protein Vancomycin Trough Rheumatoid Factor Complement C4 Miscellaneous Test Crossmatch 12/15/16 12/16/1612/16/17 23:34 05:25 11:24 WBC RBC Hgb Hct MCV MCH MCHC RDW Plt Count Lymph % (Auto) [place] % (Auto) Lymph # [place] # Baso # Seg Neutrophils % Seg Neuts % (Manual) Lymphocytes % (Manual) Monocytes % (Manual) Eosinophils % (Manual) Basophils % (Manual) Nucleated RBC % Seg Neutrophils # Seg Neutrophils # Man Lymphocytes # (Manual) Monocytes # (Manual) Eosinophils # (Manual) Basophils # (Manual) PT INR Fibrinogen dRVVT Confirm Interp Factor V Activity POC ABG pH POC ABG pCO2 POC ABG pO2 ABG pO2 ABG HCO3 ABG Base Excess ABG Hemoglobin Oxyhemoglobin Sodium Potassium Chloride Carbon Dioxide BUN Creatinine Glucose POC Glucose 127 H 139 H 165 H Lactic Acid Calcium Phosphorus Magnesium Direct Bilirubin AST ALT Alkaline Phosphatase Lactate Dehydrogenase Troponin T C-Reactive Protein Total Protein Albumin Prealbumin Triglycerides Cholesterol LDL Cholesterol Direct HDL Cholesterol Urine pH Urine WBC (Auto) Urine Creatinine Urine Total Protein Fluid Total Protein Vancomycin Trough Rheumatoid Factor Complement C4 Miscellaneous Test Crossmatch 12/16/16 12/16/16 12/16/16 15:30 16:25 17:31 WBC 17.8 H RBC 2.38 L Hgb 6.4 L Hct 20.3 L MCV MCH 27 L MCHC RDW 17.4 H Plt Count Lymph % (Auto) [place] % (Auto) Lymph # [place] # Baso # Seg Neutrophils % Seg Neuts % (Manual) Lymphocytes % (Manual) Monocytes % (Manual) 10.0 H Eosinophils % (Manual) Basophils % (Manual) Nucleated RBC % Seg Neutrophils # Seg Neutrophils # Man 8.5 H Lymphocytes # (Manual) Monocytes # (Manual) 1.8 H Eosinophils # (Manual) Basophils # (Manual) PT INR Fibrinogen dRVVT Confirm Interp Factor V Activity POC ABG pH POC ABG pCO2 POC ABG pO2 ABG pO2 ABG HCO3 ABG Base Excess ABG Hemoglobin Oxyhemoglobin Sodium Potassium Chloride Carbon Dioxide BUN Creatinine Glucose POC Glucose 176 H Lactic Acid Calcium Phosphorus Magnesium Direct Bilirubin AST ALT Alkaline Phosphatase Lactate Dehydrogenase Troponin T C-Reactive Protein Total Protein Albumin Prealbumin Triglycerides Cholesterol LDL Cholesterol Direct HDL Cholesterol Urine pH Urine WBC (Auto) Urine Creatinine Urine Total Protein Fluid Total Protein Vancomycin Trough Rheumatoid Factor Complement C4 Miscellaneous Test Crossmatch See Detail 12/17/16 12/17/16 12/17/16 00:14 04:00 05:00 WBC 20.0 H RBC 2.99 L Hgb 8.5 L Hct 25.7 L MCV MCH MCHC RDW 17.2 H Plt Count Lymph % (Auto) [place] % (Auto) Lymph # [place] # Baso # Seg Neutrophils % Seg Neuts % (Manual) Lymphocytes % (Manual) Monocytes % (Manual) Eosinophils % (Manual) Basophils % (Manual) Nucleated RBC % Seg Neutrophils # Seg Neutrophils # Man Lymphocytes # (Manual) Monocytes # (Manual) Eosinophils # (Manual) Basophils # (Manual) PT INR Fibrinogen dRVVT Confirm Interp Factor V Activity POC ABG pH POC ABG pCO2 POC ABG pO2 ABG pO2 ABG HCO3 ABG Base Excess ABG Hemoglobin Oxyhemoglobin Sodium Potassium Chloride 97.7 L Carbon Dioxide BUN 73 H Creatinine 1.7 H Glucose 136 H POC Glucose 148 H Lactic Acid Calcium Phosphorus 2.20 L Magnesium 2.70 H Direct Bilirubin AST ALT Alkaline Phosphatase Lactate Dehydrogenase Troponin T C-Reactive Protein Total Protein Albumin Prealbumin Triglycerides Cholesterol LDL Cholesterol Direct HDL Cholesterol Urine pH Urine WBC (Auto) Urine Creatinine Urine Total Protein Fluid Total Protein Vancomycin Trough Rheumatoid Factor Complement C4 Miscellaneous Test Crossmatch 12/17/16 12/17/16 12/17/16 05:39 12:50 16:32 WBC RBC Hgb Hct MCV MCH MCHC RDW Plt Count Lymph % (Auto) [place] % (Auto) Lymph # [place] # Baso # Seg Neutrophils % Seg Neuts % (Manual) Lymphocytes % (Manual) Monocytes % (Manual) Eosinophils % (Manual) Basophils % (Manual) Nucleated RBC % Seg Neutrophils # Seg Neutrophils # Man Lymphocytes # (Manual) Monocytes # (Manual) Eosinophils # (Manual) Basophils # (Manual) PT INR Fibrinogen dRVVT Confirm Interp Factor V Activity POC ABG pH POC ABG pCO2 POC ABG pO2 ABG pO2 ABG HCO3 ABG Base Excess ABG Hemoglobin Oxyhemoglobin Sodium Potassium Chloride Carbon Dioxide BUN Creatinine Glucose POC Glucose 162 H 146 H 169 H Lactic Acid Calcium Phosphorus Magnesium Direct Bilirubin AST ALT Alkaline Phosphatase Lactate Dehydrogenase Troponin T C-Reactive Protein Total Protein Albumin Prealbumin Triglycerides Cholesterol LDL Cholesterol Direct HDL Cholesterol Urine pH Urine WBC (Auto) Urine Creatinine Urine Total Protein Fluid Total Protein Vancomycin Trough Rheumatoid Factor Complement C4 Miscellaneous Test Crossmatch 12/17/16 12/18/16 12/18/16 23:57 05:00 05:32 WBC RBC Hgb Hct MCV MCH MCHC RDW Plt Count Lymph % (Auto) [place] % (Auto) Lymph # [place] # Baso # Seg Neutrophils % Seg Neuts % (Manual) Lymphocytes % (Manual) Monocytes % (Manual) Eosinophils % (Manual) Basophils % (Manual) Nucleated RBC % Seg Neutrophils # Seg Neutrophils # Man Lymphocytes # (Manual) Monocytes # (Manual) Eosinophils # (Manual) Basophils # (Manual) PT INR Fibrinogen dRVVT Confirm Interp Factor V Activity POC ABG pH POC ABG pCO2 POC ABG pO2 ABG pO2 ABG HCO3 ABG Base Excess ABG Hemoglobin Oxyhemoglobin Sodium Potassium Chloride 97.0 L Carbon Dioxide BUN 63 H Creatinine 1.4 H Glucose 174 H POC Glucose 145 H 201 H Lactic Acid Calcium Phosphorus 1.70 L D Magnesium Direct Bilirubin AST ALT Alkaline Phosphatase 257 H Lactate Dehydrogenase Troponin T C-Reactive Protein Total Protein 5.9 L Albumin 1.8 L Prealbumin Triglycerides Cholesterol LDL Cholesterol Direct HDL Cholesterol Urine pH Urine WBC (Auto) Urine Creatinine Urine Total Protein Fluid Total Protein Vancomycin Trough Rheumatoid Factor Complement C4 Miscellaneous Test Crossmatch 12/18/16 12/18/16 12/18/16 11:43 16:52 23:52 WBC RBC Hgb Hct MCV MCH MCHC RDW Plt Count Lymph % (Auto) [place] % (Auto) Lymph # [place] # Baso # Seg Neutrophils % Seg Neuts % (Manual) Lymphocytes % (Manual) Monocytes % (Manual) Eosinophils % (Manual) Basophils % (Manual) Nucleated RBC % Seg Neutrophils # Seg Neutrophils # Man Lymphocytes # (Manual) Monocytes # (Manual) Eosinophils # (Manual) Basophils # (Manual) PT INR Fibrinogen dRVVT Confirm Interp Factor V Activity POC ABG pH POC ABG pCO2 POC ABG pO2 ABG pO2 ABG HCO3 ABG Base Excess ABG Hemoglobin Oxyhemoglobin Sodium Potassium Chloride Carbon Dioxide BUN Creatinine Glucose POC Glucose 177 H 110 H 162 H Lactic Acid Calcium Phosphorus Magnesium Direct Bilirubin AST ALT Alkaline Phosphatase Lactate Dehydrogenase Troponin T C-Reactive Protein Total Protein Albumin Prealbumin Triglycerides Cholesterol LDL Cholesterol Direct HDL Cholesterol Urine pH Urine WBC (Auto) Urine Creatinine Urine Total Protein Fluid Total Protein Vancomycin Trough Rheumatoid Factor Complement C4 Miscellaneous Test Crossmatch 12/19/16 12/19/16 12/19/16 05:02 05:24 09:30 WBC 20.1 H RBC 2.73 L Hgb 7.6 L Hct 23.6 L MCV MCH MCHC RDW 17.6 H Plt Count Lymph % (Auto) [place] % (Auto) Lymph # [place] # Baso # Seg Neutrophils % Seg Neuts % (Manual) Lymphocytes % (Manual) 13.0 L Monocytes % (Manual) Eosinophils % (Manual) Basophils % (Manual) Nucleated RBC % 1.0 H Seg Neutrophils # Seg Neutrophils # Man 12.9 H Lymphocytes # (Manual) Monocytes # (Manual) 1.4 H Eosinophils # (Manual) Basophils # (Manual) 0.2 H PT INR Fibrinogen dRVVT Confirm Interp Factor V Activity POC ABG pH POC ABG pCO2 POC ABG pO2 ABG pO2 ABG HCO3 ABG Base Excess ABG Hemoglobin Oxyhemoglobin Sodium Potassium Chloride 97.8 L Carbon Dioxide BUN 84 H Creatinine 1.6 H Glucose 133 H POC Glucose 134 H Lactic Acid Calcium Phosphorus Magnesium Direct Bilirubin AST ALT Alkaline Phosphatase Lactate Dehydrogenase Troponin T C-Reactive Protein Total Protein Albumin Prealbumin Triglycerides Cholesterol LDL Cholesterol Direct HDL Cholesterol Urine pH Urine WBC (Auto) Urine Creatinine Urine Total Protein Fluid Total Protein Vancomycin Trough Rheumatoid Factor Complement C4 Miscellaneous Test Crossmatch 12/19/16 12/19/16 12/19/16 09:36 11:12 18:29 WBC RBC Hgb Hct MCV MCH MCHC RDW Plt Count Lymph % (Auto) [place] % (Auto) Lymph # [place] # Baso # Seg Neutrophils % Seg Neuts % (Manual) Lymphocytes % (Manual) Monocytes % (Manual) Eosinophils % (Manual) Basophils % (Manual) Nucleated RBC % Seg Neutrophils # Seg Neutrophils # Man Lymphocytes # (Manual) Monocytes # (Manual) Eosinophils # (Manual) Basophils # (Manual) PT INR Fibrinogen dRVVT Confirm Interp Factor V Activity POC ABG pH 7.503 H POC ABG pCO2 30.1 L POC ABG pO2 ABG pO2 ABG HCO3 ABG Base Excess ABG Hemoglobin Oxyhemoglobin Sodium Potassium Chloride Carbon Dioxide BUN Creatinine Glucose POC Glucose 138 H 156 H Lactic Acid Calcium Phosphorus Magnesium Direct Bilirubin AST ALT Alkaline Phosphatase Lactate Dehydrogenase Troponin T C-Reactive Protein Total Protein Albumin Prealbumin Triglycerides Cholesterol LDL Cholesterol Direct HDL Cholesterol Urine pH Urine WBC (Auto) Urine Creatinine Urine Total Protein Fluid Total Protein Vancomycin Trough Rheumatoid Factor Complement C4 Miscellaneous Test Crossmatch 12/20/16 12/20/16 12/20/16 00:03 06:17 07:07 WBC RBC Hgb Hct MCV MCH MCHC RDW Plt Count Lymph % (Auto) [place] % (Auto) Lymph # [place] # Baso # Seg Neutrophils % Seg Neuts % (Manual) Lymphocytes % (Manual) Monocytes % (Manual) Eosinophils % (Manual) Basophils % (Manual) Nucleated RBC % Seg Neutrophils # Seg Neutrophils # Man Lymphocytes # (Manual) Monocytes # (Manual) Eosinophils # (Manual) Basophils # (Manual) PT INR Fibrinogen dRVVT Confirm Interp Factor V Activity POC ABG pH POC ABG pCO2 POC ABG pO2 ABG pO2 ABG HCO3 ABG Base Excess ABG Hemoglobin Oxyhemoglobin Sodium Potassium Chloride 97.1 L Carbon Dioxide 20 L BUN 97 H Creatinine 1.8 H Glucose 153 H POC Glucose 152 H 175 H Lactic Acid Calcium Phosphorus Magnesium Direct Bilirubin AST ALT Alkaline Phosphatase Lactate Dehydrogenase Troponin T C-Reactive Protein Total Protein Albumin Prealbumin Triglycerides Cholesterol LDL Cholesterol Direct HDL Cholesterol Urine pH Urine WBC (Auto) Urine Creatinine Urine Total Protein Fluid Total Protein Vancomycin Trough Rheumatoid Factor Complement C4 Miscellaneous Test Crossmatch 12/20/16 12/20/16 12/20/16 12:00 17:42 23:53 WBC RBC Hgb Hct MCV MCH MCHC RDW Plt Count Lymph % (Auto) [place] % (Auto) Lymph # [place] # Baso # Seg Neutrophils % Seg Neuts % (Manual) Lymphocytes % (Manual) Monocytes % (Manual) Eosinophils % (Manual) Basophils % (Manual) Nucleated RBC % Seg Neutrophils # Seg Neutrophils # Man Lymphocytes # (Manual) Monocytes # (Manual) Eosinophils # (Manual) Basophils # (Manual) PT INR Fibrinogen dRVVT Confirm Interp Factor V Activity POC ABG pH POC ABG pCO2 POC ABG pO2 ABG pO2 ABG HCO3 ABG Base Excess ABG Hemoglobin Oxyhemoglobin Sodium Potassium Chloride Carbon Dioxide BUN Creatinine Glucose POC Glucose 141 H 156 H 132 H Lactic Acid Calcium Phosphorus Magnesium Direct Bilirubin AST ALT Alkaline Phosphatase Lactate Dehydrogenase Troponin T C-Reactive Protein Total Protein Albumin Prealbumin Triglycerides Cholesterol LDL Cholesterol Direct HDL Cholesterol Urine pH Urine WBC (Auto) Urine Creatinine Urine Total Protein Fluid Total Protein Vancomycin Trough Rheumatoid Factor Complement C4 Miscellaneous Test Crossmatch 12/21/16 12/21/16 12/21/16 05:49 08:50 12:19 WBC RBC Hgb Hct MCV MCH MCHC RDW Plt Count Lymph % (Auto) [place] % (Auto) Lymph # [place] # Baso # Seg Neutrophils % Seg Neuts % (Manual) Lymphocytes % (Manual) Monocytes % (Manual) Eosinophils % (Manual) Basophils % (Manual) Nucleated RBC % Seg Neutrophils # Seg Neutrophils # Man Lymphocytes # (Manual) Monocytes # (Manual) Eosinophils # (Manual) Basophils # (Manual) PT INR Fibrinogen dRVVT Confirm Interp Factor V Activity POC ABG pH POC ABG pCO2 POC ABG pO2 ABG pO2 ABG HCO3 ABG Base Excess ABG Hemoglobin Oxyhemoglobin Sodium Potassium 5.2 H D Chloride Carbon Dioxide BUN 63 H Creatinine Glucose 122 H POC Glucose 132 H 136 H Lactic Acid Calcium 8.3 L Phosphorus Magnesium Direct Bilirubin AST ALT Alkaline Phosphatase Lactate Dehydrogenase Troponin T C-Reactive Protein Total Protein Albumin Prealbumin Triglycerides Cholesterol LDL Cholesterol Direct HDL Cholesterol Urine pH Urine WBC (Auto) Urine Creatinine Urine Total Protein Fluid Total Protein Vancomycin Trough Rheumatoid Factor Complement C4 Miscellaneous Test Crossmatch 12/21/16 12/21/16 12/22/16 17:22 23:58 05:49 WBC RBC Hgb Hct MCV MCH MCHC RDW Plt Count Lymph % (Auto) [place] % (Auto) Lymph # [place] # Baso # Seg Neutrophils % Seg Neuts % (Manual) Lymphocytes % (Manual) Monocytes % (Manual) Eosinophils % (Manual) Basophils % (Manual) Nucleated RBC % Seg Neutrophils # Seg Neutrophils # Man Lymphocytes # (Manual) Monocytes # (Manual) Eosinophils # (Manual) Basophils # (Manual) PT INR Fibrinogen dRVVT Confirm Interp Factor V Activity POC ABG pH POC ABG pCO2 POC ABG pO2 ABG pO2 ABG HCO3 ABG Base Excess ABG Hemoglobin Oxyhemoglobin Sodium Potassium Chloride Carbon Dioxide BUN Creatinine Glucose POC Glucose 135 H 149 H 140 H Lactic Acid Calcium Phosphorus Magnesium Direct Bilirubin AST ALT Alkaline Phosphatase Lactate Dehydrogenase Troponin T C-Reactive Protein Total Protein Albumin Prealbumin Triglycerides Cholesterol LDL Cholesterol Direct HDL Cholesterol Urine pH Urine WBC (Auto) Urine Creatinine Urine Total Protein Fluid Total Protein Vancomycin Trough Rheumatoid Factor Complement C4 Miscellaneous Test Crossmatch 12/22/16 12/22/16 12/22/16 06:10 11:17 17:31 WBC RBC Hgb Hct MCV MCH MCHC RDW Plt Count Lymph % (Auto) [place] % (Auto) Lymph # [place] # Baso # Seg Neutrophils % Seg Neuts % (Manual) Lymphocytes % (Manual) Monocytes % (Manual) Eosinophils % (Manual) Basophils % (Manual) Nucleated RBC % Seg Neutrophils # Seg Neutrophils # Man Lymphocytes # (Manual) Monocytes # (Manual) Eosinophils # (Manual) Basophils # (Manual) PT INR Fibrinogen dRVVT Confirm Interp Factor V Activity POC ABG pH POC ABG pCO2 POC ABG pO2 ABG pO2 ABG HCO3 ABG Base Excess ABG Hemoglobin Oxyhemoglobin Sodium Potassium Chloride Carbon Dioxide BUN 76 H Creatinine 1.5 H Glucose 241 H POC Glucose 193 H 148 H Lactic Acid Calcium Phosphorus Magnesium Direct Bilirubin AST ALT Alkaline Phosphatase Lactate Dehydrogenase Troponin T C-Reactive Protein Total Protein Albumin Prealbumin Triglycerides Cholesterol LDL Cholesterol Direct HDL Cholesterol Urine pH Urine WBC (Auto) Urine Creatinine Urine Total Protein Fluid Total Protein Vancomycin Trough Rheumatoid Factor Complement C4 Miscellaneous Test Crossmatch 12/22/16 12/23/16 23:58 05:00 WBC RBC Hgb Hct MCV MCH MCHC RDW Plt Count Lymph % (Auto) [place] % (Auto) Lymph # [place] # Baso # Seg Neutrophils % Seg Neuts % (Manual) Lymphocytes % (Manual) Monocytes % (Manual) Eosinophils % (Manual) Basophils % (Manual) Nucleated RBC % Seg Neutrophils # Seg Neutrophils # Man Lymphocytes # (Manual) Monocytes # (Manual) Eosinophils # (Manual) Basophils # (Manual) PT INR Fibrinogen dRVVT Confirm Interp Factor V Activity POC ABG pH POC ABG pCO2 POC ABG pO2 ABG pO2 ABG HCO3 ABG Base Excess ABG Hemoglobin Oxyhemoglobin Sodium Potassium Chloride Carbon Dioxide BUN 49 H Creatinine Glucose 143 H POC Glucose 165 H Lactic Acid Calcium 8.2 L Phosphorus Magnesium 1.60 L Direct Bilirubin AST ALT Alkaline Phosphatase Lactate Dehydrogenase Troponin T C-Reactive Protein Total Protein Albumin Prealbumin Triglycerides Cholesterol LDL Cholesterol Direct HDL Cholesterol Urine pH Urine WBC (Auto) Urine Creatinine Urine Total Protein Fluid Total Protein Vancomycin Trough Rheumatoid Factor Complement C4 Miscellaneous Test Crossmatch Allied health notes reviewed: RT
[2016-12-23] MEDS: TRANSDERM-SCOP TD SCH (14:56)
[2016-12-23] MEDS ORDERED: INTRALIPID 20% 250 ML IV SCH (20:00)
[2016-12-23] MEDS ORDERED: TPN ADULT IV SCH (20:00)
[2016-12-24] MEDS: LOPRESSOR PO SCH ×5 (00:54→23:06)
[2016-12-24] MEDS: DUONEB *Not for PRN Use IH SCH ×4 (02:26→19:21)
[2016-12-24] MEDS: HumuLIN R SUB-Q SCH ×4 (06:00→19:31)
[2016-12-24] MEDS: APRESOLINE PO SCH ×3 (06:15→22:52)
[2016-12-24 07:40] LABS: Calcium 8.2 mg/dL (8.4-10.2)
[2016-12-24] MEDS: CORDARONE PO SCH ×2 (11:03→22:51)
[2016-12-24] MEDS: HEPARIN SUB-Q SCH (11:04)
[2016-12-24] MEDS: PROTONIX FEEDTUBE SCH (11:04)
[2016-12-24] MEDS: NORVASC PO SCH (11:04)
[2016-12-24] MEDS: ROBINUL PO SCH ×2 (11:06→22:51)
--- NOTE | 2016-12-24 11:07 | Progress Note ---
Subjective Principal diagnosis: Acute resp failure on MVS; S/P Acute CVA; Acute Encephalopathy; JUANITA Interval history: Patient was seen today for follow-up, on many renal related issues patient remains dialysis dependent, encepahlopathic Interdisciplinary notes were reviewed Vitals labs intake and output medications were reviewed from today Allergies: Reviewed Social history: Reviewed Family history: Reviewed Physical examination HEENT: Oral mucosa moist no pharyngeal erythema Neck: Supple no JVD Chest: Clear to auscultation no crackles rales or wheezes Heart: Regular rate and rhythm S1-S2 heard no S3-S4 Abdomen: Soft nontender no renal bruit no CVA tenderness no suprapubic fullness Extremity: Mild edema dry skin no peripheral cyanosis pulses palpable Musculoskeletal: No joint effusion noted Assessment and plan Renal failure acute currently dialysis dependent no sinus symptoms of renal function recovery, patient will continue to dialyze on Monday schedule Hypertension, renovascular mostly currently stable,much less labile Respiratory failure Remains dialysis dependent Overall prognosis is not so good Will continue to follow and make recommendation from renal standpoint Objective - Vital Signs Vital signs: Vital Signs - 12hr 12/23/16 12/23/16 12/23/16 23:15 23:18 23:19 Temperature Pulse Rate 105 H 100 H Pulse Rate [ Anterior Bilateral Throughout] Pulse Rate [ From Monitor] Respiratory 20 Rate Respiratory Rate [Anterior Bilateral Throughout] Respiratory Rate [ Generalized] Blood Pressure 126/72 126/72 O2 Sat by Pulse 98 98 Oximetry O2 Sat by Pulse 98 Oximetry [ Assessment] 12/23/16 12/23/16 12/23/16 23:30 23:39 23:45 Temperature 97.8 F Pulse Rate 111 H 110 H Pulse Rate [ Anterior Bilateral Throughout] Pulse Rate [ From Monitor] Respiratory 11 L 16 Rate Respiratory Rate [Anterior Bilateral Throughout] Respiratory Rate [ Generalized] Blood Pressure 130/82 117/80 O2 Sat by Pulse 98 97 Oximetry O2 Sat by Pulse Oximetry [ Assessment] 12/24/16 12/24/16 12/24/16 00:00 00:15 00:30 Temperature Pulse Rate 109 H 110 H 107 H Pulse Rate [ Anterior Bilateral Throughout] Pulse Rate [ 109 H From Monitor] Respiratory 23 13 19 Rate Respiratory Rate [Anterior Bilateral Throughout] Respiratory Rate [ Generalized] Blood Pressure 117/73 125/79 110/68 O2 Sat by Pulse 98 99 98 Oximetry O2 Sat by Pulse Oximetry [ Assessment] 12/24/16 12/24/16 12/24/16 00:45 00:54 01:00 Temperature Pulse Rate 108 H 108 H 104 H Pulse Rate [ Anterior Bilateral Throughout] Pulse Rate [ From Monitor] Respiratory 17 17 Rate Respiratory Rate [Anterior Bilateral Throughout] Respiratory Rate [ Generalized] Blood Pressure 126/79 126/79 117/74 O2 Sat by Pulse 100 100 Oximetry O2 Sat by Pulse Oximetry [ Assessment] 12/24/16 12/24/16 12/24/16 01:15 01:30 01:44 Temperature Pulse Rate 88 85 Pulse Rate [ Anterior Bilateral Throughout] Pulse Rate [ From Monitor] Respiratory 17 25 H Rate Respiratory Rate [Anterior Bilateral Throughout] Respiratory 10 L Rate [ Generalized] Blood Pressure 101/66 100/70 O2 Sat by Pulse 99 100 Oximetry O2 Sat by Pulse Oximetry [ Assessment] 12/24/16 12/24/16 12/24/16 01:45 02:00 02:15 Temperature Pulse Rate 81 83 83 Pulse Rate [ Anterior Bilateral Throughout] Pulse Rate [ From Monitor] Respiratory 5 L 14 22 Rate Respiratory Rate [Anterior Bilateral Throughout] Respiratory Rate [ Generalized] Blood Pressure 93/55 94/67 100/65 O2 Sat by Pulse 100 100 99 Oximetry O2 Sat by Pulse Oximetry [ Assessment] 12/24/16 12/24/16 12/24/16 02:26 02:30 02:41 Temperature Pulse Rate 86 Pulse Rate [ 87 89 Anterior Bilateral Throughout] Pulse Rate [ From Monitor] Respiratory 16 Rate Respiratory 21 21 Rate [Anterior Bilateral Throughout] Respiratory Rate [ Generalized] Blood Pressure 100/65 O2 Sat by Pulse 96 Oximetry O2 Sat by Pulse Oximetry [ Assessment] 12/24/16 12/24/16 12/24/16 02:45 03:00 03:15 Temperature Pulse Rate 90 92 H 92 H Pulse Rate [ Anterior Bilateral Throughout] Pulse Rate [ From Monitor] Respiratory 14 10 L 20 Rate Respiratory Rate [Anterior Bilateral Throughout] Respiratory Rate [ Generalized] Blood Pressure 117/67 116/77 111/73 O2 Sat by Pulse 99 98 99 Oximetry O2 Sat by Pulse Oximetry [ Assessment] 12/24/16 12/24/16 12/24/16 03:30 03:37 03:45 Temperature 98.9 F Pulse Rate 92 H 95 H Pulse Rate [ Anterior Bilateral Throughout] Pulse Rate [ From Monitor] Respiratory 13 24 Rate Respiratory Rate [Anterior Bilateral Throughout] Respiratory Rate [ Generalized] Blood Pressure 119/75 115/76 O2 Sat by Pulse 99 95 Oximetry O2 Sat by Pulse Oximetry [ Assessment] 12/24/16 12/24/16 12/24/16 04:00 04:16 04:30 Temperature Pulse Rate 92 H 98 H 96 H Pulse Rate [ Anterior Bilateral Throughout] Pulse Rate [ 92 H From Monitor] Respiratory 20 22 17 Rate Respiratory Rate [Anterior Bilateral Throughout] Respiratory Rate [ Generalized] Blood Pressure 104/69 104/69 104/69 O2 Sat by Pulse 95 98 98 Oximetry O2 Sat by Pulse Oximetry [ Assessment] 12/24/16 12/24/16 12/24/16 04:46 05:00 05:15 Temperature Pulse Rate 96 H 97 H 94 H Pulse Rate [ Anterior Bilateral Throughout] Pulse Rate [ From Monitor] Respiratory 20 21 22 Rate Respiratory Rate [Anterior Bilateral Throughout] Respiratory Rate [ Generalized] Blood Pressure 104/69 139/90 117/85 O2 Sat by Pulse 98 89 92 Oximetry O2 Sat by Pulse Oximetry [ Assessment] 12/24/16 12/24/16 12/24/16 05:30 05:45 06:00 Temperature Pulse Rate 94 H 89 88 Pulse Rate [ Anterior Bilateral Throughout] Pulse Rate [ From Monitor] Respiratory 14 18 20 Rate Respiratory Rate [Anterior Bilateral Throughout] Respiratory Rate [ Generalized] Blood Pressure 115/79 106/71 113/69 O2 Sat by Pulse 93 92 94 Oximetry O2 Sat by Pulse Oximetry [ Assessment] 12/24/16 12/24/16 12/24/16 06:15 06:30 06:45 Temperature Pulse Rate 81 76 74 Pulse Rate [ Anterior Bilateral Throughout] Pulse Rate [ From Monitor] Respiratory 18 15 20 Rate Respiratory Rate [Anterior Bilateral Throughout] Respiratory Rate [ Generalized] Blood Pressure 100/68 82/52 76/42 O2 Sat by Pulse 99 96 97 Oximetry O2 Sat by Pulse Oximetry [ Assessment] 12/24/16 12/24/16 12/24/16 07:00 07:16 07:26 Temperature 97.4 F L Pulse Rate 74 72 Pulse Rate [ Anterior Bilateral Throughout] Pulse Rate [ From Monitor] Respiratory 20 19 Rate Respiratory Rate [Anterior Bilateral Throughout] Respiratory Rate [ Generalized] Blood Pressure 71/37 71/37 O2 Sat by Pulse 96 99 Oximetry O2 Sat by Pulse Oximetry [ Assessment] 12/24/16 12/24/16 12/24/16 07:30 07:45 08:50 Temperature Pulse Rate 74 74 79 Pulse Rate [ Anterior Bilateral Throughout] Pulse Rate [ From Monitor] Respiratory 17 17 Rate Respiratory Rate [Anterior Bilateral Throughout] Respiratory Rate [ Generalized] Blood Pressure 79/46 82/45 131/94 O2 Sat by Pulse 99 98 100 Oximetry O2 Sat by Pulse Oximetry [ Assessment] 12/24/16 12/24/16 12/24/16 08:53 08:55 09:03 Temperature Pulse Rate Pulse Rate [ 79 76 Anterior Bilateral Throughout] Pulse Rate [ From Monitor] Respiratory Rate Respiratory 20 12 Rate [Anterior Bilateral Throughout] Respiratory Rate [ Generalized] Blood Pressure O2 Sat by Pulse Oximetry O2 Sat by Pulse 100 Oximetry [ Assessment] 12/24/16 11:04 Temperature Pulse Rate 90 Pulse Rate [ Anterior Bilateral Throughout] Pulse Rate [ From Monitor] Respiratory Rate Respiratory Rate [Anterior Bilateral Throughout] Respiratory Rate [ Generalized] Blood Pressure 112/70 O2 Sat by Pulse Oximetry O2 Sat by Pulse Oximetry [ Assessment] - Lab 12/19/16 05:02 12/25/16 05:45 Most recent lab results ABG pH 7.450 pH Units (7.350-7.450) 12/05/16 Unknown ABG pCO2 29.6 mm Hg 12/05/16 Unknown ABG pO2 75.2 mm Hg (80.0-90.0) L 12/05/16 Unknown ABG HCO3 20.1 mmol/L (20.0-26.0) 12/05/16 Unknown ABG O2 Saturation 96.8 % (95.0-99.0) 12/05/16 Unknown Calcium 8.2 mg/dL (8.4-10.2) L 12/24/16 07:01 Phosphorus 3.40 mg/dL (2.5-4.5) D 12/24/16 07:01 Magnesium 1.70 mg/dL (1.7-2.3) 12/24/16 07:01 Urine Creatinine 19.7 mg/dL (0.1-20.0) 11/12/16 10:18 Urine Sodium 36 mEq/L 09/16/16 19:19 Urine Total Protein 16 mg/dL (5-11.8) H 09/16/16 19:19
--- NOTE | 2016-12-24 11:22 | Progress Note ---
Assessment and Plan Acute Hypoxemic Respiratory Failure (now with exacerbation and back on MVS) Hypertension (unable to receive p.o. 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 - continue prn vasopressin if MAP falls < 60mmHg - prn CRP & lactate levels if clinically indicated (Follow WBC also) - keep on with daily PSV trials and / or T-piece as tolerated (repeat trial each shift if failed earlier shift)(trial after dialysis today) - continue TPN administration (continue TPN; NPO except for meds) - continue scopolamine for secretion control - continue to wean FiO2 for sats > 94% - continue bronchodilators and pulmonary toilet - VAP bundle addressed - continue prn IV metorolol - continue metoprolol and amlodipine (hold for hypotension) - continue HD/UF per nephrology (Teu/Thurs/Sat) - continue to follow electrolytes and correct as necessary - continue GI & VTE prophylaxis - Continue flu & pneumovax per protocol .....she remains critically ill on life sustaining interventions including MVS and at risk for further deterioration including ....30' CCT today without overlap ...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 remains 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 and this has intermittently been conveyed to family Subjective Date of service: 12/24/16 Principal diagnosis: Acute resp failure on MVS; S/P Acute CVA; Acute Encephalopathy; JUANITA Interval history: Patient is seen today for: Acute resp failure on MVS; S/P Acute CVA; Acute Encephalopathy; JUANITA Seen and examined at bedside; 24hour events reviewed; nursing and respiratory care staff consulted; no adverse overnight events reported to me; remains on MVS ; not tolerating weaning today; for hemodialysis; persistent gastric effluent via NGT; AMS is persistent Objective Vital Signs - 12hr 12/23/16 12/23/16 12/23/16 23:30 23:39 23:45 Temperature 97.8 F Pulse Rate 111 H 110 H Pulse Rate [ Anterior Bilateral Throughout] Pulse Rate [ From Monitor] Respiratory 11 L 16 Rate Respiratory Rate [Anterior Bilateral Throughout] Respiratory Rate [ Generalized] Blood Pressure 130/82 117/80 O2 Sat by Pulse 98 97 Oximetry O2 Sat by Pulse Oximetry [ Assessment] 12/24/16 12/24/16 12/24/16 00:00 00:15 00:30 Temperature Pulse Rate 109 H 110 H 107 H Pulse Rate [ Anterior Bilateral Throughout] Pulse Rate [ 109 H From Monitor] Respiratory 23 13 19 Rate Respiratory Rate [Anterior Bilateral Throughout] Respiratory Rate [ Generalized] Blood Pressure 117/73 125/79 110/68 O2 Sat by Pulse 98 99 98 Oximetry O2 Sat by Pulse Oximetry [ Assessment] 12/24/16 12/24/16 12/24/16 00:45 00:54 01:00 Temperature Pulse Rate 108 H 108 H 104 H Pulse Rate [ Anterior Bilateral Throughout] Pulse Rate [ From Monitor] Respiratory 17 17 Rate Respiratory Rate [Anterior Bilateral Throughout] Respiratory Rate [ Generalized] Blood Pressure 126/79 126/79 117/74 O2 Sat by Pulse 100 100 Oximetry O2 Sat by Pulse Oximetry [ Assessment] 12/24/16 12/24/16 12/24/16 01:15 01:30 01:44 Temperature Pulse Rate 88 85 Pulse Rate [ Anterior Bilateral Throughout] Pulse Rate [ From Monitor] Respiratory 17 25 H Rate Respiratory Rate [Anterior Bilateral Throughout] Respiratory 10 L Rate [ Generalized] Blood Pressure 101/66 100/70 O2 Sat by Pulse 99 100 Oximetry O2 Sat by Pulse Oximetry [ Assessment] 12/24/16 12/24/16 12/24/16 01:45 02:00 02:15 Temperature Pulse Rate 81 83 83 Pulse Rate [ Anterior Bilateral Throughout] Pulse Rate [ From Monitor] Respiratory 5 L 14 22 Rate Respiratory Rate [Anterior Bilateral Throughout] Respiratory Rate [ Generalized] Blood Pressure 93/55 94/67 100/65 O2 Sat by Pulse 100 100 99 Oximetry O2 Sat by Pulse Oximetry [ Assessment] 12/24/16 12/24/16 12/24/16 02:26 02:30 02:41 Temperature Pulse Rate 86 Pulse Rate [ 87 89 Anterior Bilateral Throughout] Pulse Rate [ From Monitor] Respiratory 16 Rate Respiratory 21 21 Rate [Anterior Bilateral Throughout] Respiratory Rate [ Generalized] Blood Pressure 100/65 O2 Sat by Pulse 96 Oximetry O2 Sat by Pulse Oximetry [ Assessment] 12/24/16 12/24/16 12/24/16 02:45 03:00 03:15 Temperature Pulse Rate 90 92 H 92 H Pulse Rate [ Anterior Bilateral Throughout] Pulse Rate [ From Monitor] Respiratory 14 10 L 20 Rate Respiratory Rate [Anterior Bilateral Throughout] Respiratory Rate [ Generalized] Blood Pressure 117/67 116/77 111/73 O2 Sat by Pulse 99 98 99 Oximetry O2 Sat by Pulse Oximetry [ Assessment] 12/24/16 12/24/16 12/24/16 03:30 03:37 03:45 Temperature 98.9 F Pulse Rate 92 H 95 H Pulse Rate [ Anterior Bilateral Throughout] Pulse Rate [ From Monitor] Respiratory 13 24 Rate Respiratory Rate [Anterior Bilateral Throughout] Respiratory Rate [ Generalized] Blood Pressure 119/75 115/76 O2 Sat by Pulse 99 95 Oximetry O2 Sat by Pulse Oximetry [ Assessment] 12/24/16 12/24/16 12/24/16 04:00 04:16 04:30 Temperature Pulse Rate 92 H 98 H 96 H Pulse Rate [ Anterior Bilateral Throughout] Pulse Rate [ 92 H From Monitor] Respiratory 20 22 17 Rate Respiratory Rate [Anterior Bilateral Throughout] Respiratory Rate [ Generalized] Blood Pressure 104/69 104/69 104/69 O2 Sat by Pulse 95 98 98 Oximetry O2 Sat by Pulse Oximetry [ Assessment] 12/24/16 12/24/16 12/24/16 04:46 05:00 05:15 Temperature Pulse Rate 96 H 97 H 94 H Pulse Rate [ Anterior Bilateral Throughout] Pulse Rate [ From Monitor] Respiratory 20 21 22 Rate Respiratory Rate [Anterior Bilateral Throughout] Respiratory Rate [ Generalized] Blood Pressure 104/69 139/90 117/85 O2 Sat by Pulse 98 89 92 Oximetry O2 Sat by Pulse Oximetry [ Assessment] 12/24/16 12/24/16 12/24/16 05:30 05:45 06:00 Temperature Pulse Rate 94 H 89 88 Pulse Rate [ Anterior Bilateral Throughout] Pulse Rate [ From Monitor] Respiratory 14 18 20 Rate Respiratory Rate [Anterior Bilateral Throughout] Respiratory Rate [ Generalized] Blood Pressure 115/79 106/71 113/69 O2 Sat by Pulse 93 92 94 Oximetry O2 Sat by Pulse Oximetry [ Assessment] 12/24/16 12/24/16 12/24/16 06:15 06:30 06:45 Temperature Pulse Rate 81 76 74 Pulse Rate [ Anterior Bilateral Throughout] Pulse Rate [ From Monitor] Respiratory 18 15 20 Rate Respiratory Rate [Anterior Bilateral Throughout] Respiratory Rate [ Generalized] Blood Pressure 100/68 82/52 76/42 O2 Sat by Pulse 99 96 97 Oximetry O2 Sat by Pulse Oximetry [ Assessment] 12/24/16 12/24/16 12/24/16 07:00 07:16 07:26 Temperature 97.4 F L Pulse Rate 74 72 Pulse Rate [ Anterior Bilateral Throughout] Pulse Rate [ From Monitor] Respiratory 20 19 Rate Respiratory Rate [Anterior Bilateral Throughout] Respiratory Rate [ Generalized] Blood Pressure 71/37 71/37 O2 Sat by Pulse 96 99 Oximetry O2 Sat by Pulse Oximetry [ Assessment] 12/24/16 12/24/16 12/24/16 07:30 07:45 08:50 Temperature Pulse Rate 74 74 79 Pulse Rate [ Anterior Bilateral Throughout] Pulse Rate [ From Monitor] Respiratory 17 17 Rate Respiratory Rate [Anterior Bilateral Throughout] Respiratory Rate [ Generalized] Blood Pressure 79/46 82/45 131/94 O2 Sat by Pulse 99 98 100 Oximetry O2 Sat by Pulse Oximetry [ Assessment] 12/24/16 12/24/16 12/24/16 08:53 08:55 09:03 Temperature Pulse Rate Pulse Rate [ 79 76 Anterior Bilateral Throughout] Pulse Rate [ From Monitor] Respiratory Rate Respiratory 20 12 Rate [Anterior Bilateral Throughout] Respiratory Rate [ Generalized] Blood Pressure O2 Sat by Pulse Oximetry O2 Sat by Pulse 100 Oximetry [ Assessment] 12/24/16 11:04 Temperature Pulse Rate 90 Pulse Rate [ Anterior Bilateral Throughout] Pulse Rate [ From Monitor] Respiratory Rate Respiratory Rate [Anterior Bilateral Throughout] Respiratory Rate [ Generalized] Blood Pressure 112/70 O2 Sat by Pulse Oximetry O2 Sat by Pulse Oximetry [ Assessment] Constitutional: appears uncomfortable, other (not tracking) Eyes: non-icteric, other (tracheostomy tube in midline of neck) ENT: oropharynx moist, oropharyngeal exudate pre Neck: supple, no lymphadenopathy, no JVD, other (no thyromegaly) Effort: mildly labored Ascultation: Bilateral: rhonchi (and referred upper airway sounds) Percussion: Bilateral: not dull Cardiovascular: regular rate and rhythm, other (no rubs / murmurs) Gastrointestinal: hypoactive bowel sounds, soft, non-tender, non-distended, other (RLQ & LUQ stomas with colostomy bags) Integumentary: decubitus ulcer (sacral), other (no rash; no cellulitis; poor turgor) Extremities: no cyanosis, pulses normal, no ischemia or petechiae, edema (1+ bilaterally) Neurologic: pupils equal and round, unable to assess, other (encephalopathic) Psychiatric: other (unable to assess) CBC and BMP: 12/19/16 05:02 12/25/16 05:45 ABG, PT/INR, D-dimer: ABG POC ABG pH 7.503 (7.35-7.45) H 12/19/16 09:36 ABG pH 7.450 pH Units (7.350-7.450) 12/05/16 Unknown POC ABG pCO2 30.1 (35-45) L 12/19/16 09:36 ABG pCO2 29.6 mm Hg 12/05/16 Unknown POC ABG pO2 85 (80-105) 12/19/16 09:36 ABG pO2 75.2 mm Hg (80.0-90.0) L 12/05/16 Unknown POC ABG HCO3 23.6 12/19/16 09:36 POC ABG Total CO2 25 12/19/16 09:36 POC ABG O2 Sat 97 12/19/16 09:36 ABG O2 Saturation 96.8 % (95.0-99.0) 12/05/16 Unknown PT/INR, D-dimer PT 16.8 Sec. (12.2-14.9) H 11/17/16 03:20 INR 1.37 (0.87-1.13) H 11/17/16 03:20 Abnormal lab findings: Abnormal Labs 09/03/16 09/03/16 09/03/16 12:12 15:07 16:20 WBC RBC Hgb Hct MCV MCH MCHC RDW Plt Count Lymph % (Auto) [place] % (Auto) Lymph # [place] # Baso # Seg Neutrophils % Seg Neuts % (Manual) Lymphocytes % (Manual) Monocytes % (Manual) Eosinophils % (Manual) Basophils % (Manual) Nucleated RBC % Seg Neutrophils # Seg Neutrophils # Man Lymphocytes # (Manual) Monocytes # (Manual) Eosinophils # (Manual) Basophils # (Manual) PT INR Fibrinogen dRVVT Confirm Interp Factor V Activity POC ABG pH 7.452 H POC ABG pCO2 POC ABG pO2 ABG pO2 ABG HCO3 ABG Base Excess ABG Hemoglobin Oxyhemoglobin Sodium Potassium Chloride Carbon Dioxide BUN Creatinine Glucose POC Glucose 178 H Lactic Acid Calcium Phosphorus 2.20 L Magnesium 1.60 L Direct Bilirubin AST ALT Alkaline Phosphatase Lactate Dehydrogenase Troponin T C-Reactive Protein Total Protein Albumin Prealbumin Triglycerides Cholesterol LDL Cholesterol Direct HDL Cholesterol Urine pH Urine WBC (Auto) Urine Creatinine Urine Total Protein Fluid Total Protein Vancomycin Trough Rheumatoid Factor Complement C4 Miscellaneous Test Crossmatch 09/03/16 09/03/16 09/03/16 17:57 17:58 23:50 WBC RBC Hgb Hct MCV MCH MCHC RDW Plt Count Lymph % (Auto) [place] % (Auto) Lymph # [place] # Baso # Seg Neutrophils % Seg Neuts % (Manual) Lymphocytes % (Manual) Monocytes % (Manual) Eosinophils % (Manual) Basophils % (Manual) Nucleated RBC % Seg Neutrophils # Seg Neutrophils # Man Lymphocytes # (Manual) Monocytes # (Manual) Eosinophils # (Manual) Basophils # (Manual) PT INR Fibrinogen dRVVT Confirm Interp Factor V Activity POC ABG pH POC ABG pCO2 POC ABG pO2 ABG pO2 ABG HCO3 ABG Base Excess ABG Hemoglobin Oxyhemoglobin Sodium Potassium Chloride Carbon Dioxide BUN Creatinine Glucose POC Glucose 162 H 145 H Lactic Acid Calcium Phosphorus 2.30 L Magnesium Direct Bilirubin AST ALT Alkaline Phosphatase Lactate Dehydrogenase Troponin T C-Reactive Protein Total Protein Albumin Prealbumin Triglycerides Cholesterol LDL Cholesterol Direct HDL Cholesterol Urine pH Urine WBC (Auto) Urine Creatinine Urine Total Protein Fluid Total Protein Vancomycin Trough Rheumatoid Factor Complement C4 Miscellaneous Test Crossmatch 09/04/16 09/04/16 09/04/16 03:31 03:31 05:42 WBC RBC Hgb 9.7 L D Hct MCV 72 L MCH 23 L MCHC RDW 17.5 H Plt Count Lymph % (Auto) 11.1 L [place] % (Auto) Lymph # [place] # Baso # Seg Neutrophils % 84.3 H Seg Neuts % (Manual) Lymphocytes % (Manual) Monocytes % (Manual) Eosinophils % (Manual) Basophils % (Manual) Nucleated RBC % Seg Neutrophils # 8.9 H Seg Neutrophils # Man Lymphocytes # (Manual) Monocytes # (Manual) Eosinophils # (Manual) Basophils # (Manual) PT INR Fibrinogen dRVVT Confirm Interp Factor V Activity POC ABG pH POC ABG pCO2 POC ABG pO2 ABG pO2 ABG HCO3 ABG Base Excess ABG Hemoglobin Oxyhemoglobin Sodium 135 L Potassium 2.9 L* Chloride 97.2 L Carbon Dioxide 19 L BUN Creatinine 1.7 H Glucose 170 H POC Glucose 152 H Lactic Acid Calcium Phosphorus Magnesium Direct Bilirubin AST ALT Alkaline Phosphatase Lactate Dehydrogenase Troponin T C-Reactive Protein Total Protein Albumin Prealbumin Triglycerides 160 H Cholesterol LDL Cholesterol Direct HDL Cholesterol 31 L Urine pH Urine WBC (Auto) Urine Creatinine Urine Total Protein Fluid Total Protein Vancomycin Trough Rheumatoid Factor Complement C4 Miscellaneous Test Crossmatch 09/04/16 09/04/16 09/04/16 11:34 17:46 23:29 WBC RBC Hgb Hct MCV MCH MCHC RDW Plt Count Lymph % (Auto) [place] % (Auto) Lymph # [place] # Baso # Seg Neutrophils % Seg Neuts % (Manual) Lymphocytes % (Manual) Monocytes % (Manual) Eosinophils % (Manual) Basophils % (Manual) Nucleated RBC % Seg Neutrophils # Seg Neutrophils # Man Lymphocytes # (Manual) Monocytes # (Manual) Eosinophils # (Manual) Basophils # (Manual) PT INR Fibrinogen dRVVT Confirm Interp Factor V Activity POC ABG pH POC ABG pCO2 POC ABG pO2 ABG pO2 ABG HCO3 ABG Base Excess ABG Hemoglobin Oxyhemoglobin Sodium Potassium Chloride Carbon Dioxide BUN Creatinine Glucose POC Glucose 165 H 210 H 139 H Lactic Acid Calcium Phosphorus Magnesium Direct Bilirubin AST ALT Alkaline Phosphatase Lactate Dehydrogenase Troponin T C-Reactive Protein Total Protein Albumin Prealbumin Triglycerides Cholesterol LDL Cholesterol Direct HDL Cholesterol Urine pH Urine WBC (Auto) Urine Creatinine Urine Total Protein Fluid Total Protein Vancomycin Trough Rheumatoid Factor Complement C4 Miscellaneous Test Crossmatch 09/05/16 09/05/16 09/05/16 04:05 04:05 05:38 WBC RBC Hgb Hct MCV 76 L D MCH 23 L MCHC RDW 17.8 H Plt Count Lymph % (Auto) [place] % (Auto) Lymph # [place] # Baso # Seg Neutrophils % Seg Neuts % (Manual) Lymphocytes % (Manual) Monocytes % (Manual) Eosinophils % (Manual) Basophils % (Manual) Nucleated RBC % Seg Neutrophils # Seg Neutrophils # Man Lymphocytes # (Manual) Monocytes # (Manual) Eosinophils # (Manual) Basophils # (Manual) PT INR Fibrinogen dRVVT Confirm Interp Factor V Activity POC ABG pH POC ABG pCO2 POC ABG pO2 ABG pO2 ABG HCO3 ABG Base Excess ABG Hemoglobin Oxyhemoglobin Sodium 134 L Potassium Chloride Carbon Dioxide 18 L BUN Creatinine 1.8 H Glucose 192 H POC Glucose 175 H Lactic Acid Calcium Phosphorus Magnesium Direct Bilirubin AST ALT Alkaline Phosphatase Lactate Dehydrogenase Troponin T C-Reactive Protein Total Protein Albumin Prealbumin Triglycerides Cholesterol LDL Cholesterol Direct HDL Cholesterol Urine pH Urine WBC (Auto) Urine Creatinine Urine Total Protein Fluid Total Protein Vancomycin Trough Rheumatoid Factor Complement C4 Miscellaneous Test Crossmatch 07/09/05/16 09/05/16 11:38 17:48 23:22 WBC RBC Hgb Hct MCV MCH MCHC RDW Plt Count Lymph % (Auto) [place] % (Auto) Lymph # [place] # Baso # Seg Neutrophils % Seg Neuts % (Manual) Lymphocytes % (Manual) Monocytes % (Manual) Eosinophils % (Manual) Basophils % (Manual) Nucleated RBC % Seg Neutrophils # Seg Neutrophils # Man Lymphocytes # (Manual) Monocytes # (Manual) Eosinophils # (Manual) Basophils # (Manual) PT INR Fibrinogen dRVVT Confirm Interp Factor V Activity POC ABG pH POC ABG pCO2 POC ABG pO2 ABG pO2 ABG HCO3 ABG Base Excess ABG Hemoglobin Oxyhemoglobin Sodium Potassium Chloride Carbon Dioxide BUN Creatinine Glucose POC Glucose 164 H 186 H 195 H Lactic Acid Calcium Phosphorus Magnesium Direct Bilirubin AST ALT Alkaline Phosphatase Lactate Dehydrogenase Troponin T C-Reactive Protein Total Protein Albumin Prealbumin Triglycerides Cholesterol LDL Cholesterol Direct HDL Cholesterol Urine pH Urine WBC (Auto) Urine Creatinine Urine Total Protein Fluid Total Protein Vancomycin Trough Rheumatoid Factor Complement C4 Miscellaneous Test Crossmatch 09/06/16 09/06/16 09/06/16 04:12 05:59 07:32 WBC RBC Hgb Hct MCV MCH MCHC RDW Plt Count Lymph % (Auto) [place] % (Auto) Lymph # [place] # Baso # Seg Neutrophils % Seg Neuts % (Manual) Lymphocytes % (Manual) Monocytes % (Manual) Eosinophils % (Manual) Basophils % (Manual) Nucleated RBC % Seg Neutrophils # Seg Neutrophils # Man Lymphocytes # (Manual) Monocytes # (Manual) Eosinophils # (Manual) Basophils # (Manual) PT INR Fibrinogen dRVVT Confirm Interp Factor V Activity POC ABG pH 7.514 H POC ABG pCO2 29.1 L POC ABG pO2 72 L ABG pO2 ABG HCO3 ABG Base Excess ABG Hemoglobin Oxyhemoglobin Sodium 133 L Potassium 3.4 L Chloride 94.9 L Carbon Dioxide 19 L BUN 30 H Creatinine 2.1 H Glucose 139 H POC Glucose 146 H Lactic Acid Calcium Phosphorus Magnesium Direct Bilirubin AST ALT Alkaline Phosphatase Lactate Dehydrogenase Troponin T C-Reactive Protein Total Protein Albumin Prealbumin Triglycerides Cholesterol LDL Cholesterol Direct HDL Cholesterol Urine pH Urine WBC (Auto) Urine Creatinine Urine Total Protein Fluid Total Protein Vancomycin Trough Rheumatoid Factor Complement C4 Miscellaneous Test Crossmatch 09/06/16 09/06/16 09/06/16 11:57 17:58 19:02 WBC RBC Hgb Hct MCV MCH MCHC RDW Plt Count Lymph % (Auto) [place] % (Auto) Lymph # [place] # Baso # Seg Neutrophils % Seg Neuts % (Manual) Lymphocytes % (Manual) Monocytes % (Manual) Eosinophils % (Manual) Basophils % (Manual) Nucleated RBC % Seg Neutrophils # Seg Neutrophils # Man Lymphocytes # (Manual) Monocytes # (Manual) Eosinophils # (Manual) Basophils # (Manual) PT INR Fibrinogen dRVVT Confirm Interp Factor V Activity POC ABG pH 7.465 H POC ABG pCO2 32.0 L POC ABG pO2 ABG pO2 ABG HCO3 ABG Base Excess ABG Hemoglobin Oxyhemoglobin Sodium Potassium Chloride Carbon Dioxide BUN Creatinine Glucose POC Glucose 165 H 160 H Lactic Acid Calcium Phosphorus Magnesium Direct Bilirubin AST ALT Alkaline Phosphatase Lactate Dehydrogenase Troponin T C-Reactive Protein Total Protein Albumin Prealbumin Triglycerides Cholesterol LDL Cholesterol Direct HDL Cholesterol Urine pH Urine WBC (Auto) Urine Creatinine Urine Total Protein Fluid Total Protein Vancomycin Trough Rheumatoid Factor Complement C4 Miscellaneous Test Crossmatch 09/06/16 09/07/16 09/07/16 23:45 02:47 02:47 WBC RBC Hgb Hct MCV MCH MCHC RDW Plt Count Lymph % (Auto) [place] % (Auto) Lymph # [place] # Baso # Seg Neutrophils % Seg Neuts % (Manual) Lymphocytes % (Manual) Monocytes % (Manual) Eosinophils % (Manual) Basophils % (Manual) Nucleated RBC % Seg Neutrophils # Seg Neutrophils # Man Lymphocytes # (Manual) Monocytes # (Manual) Eosinophils # (Manual) Basophils # (Manual) PT INR Fibrinogen dRVVT Confirm Interp Factor V Activity POC ABG pH POC ABG pCO2 POC ABG pO2 ABG pO2 ABG HCO3 ABG Base Excess ABG Hemoglobin Oxyhemoglobin Sodium Potassium Chloride Carbon Dioxide BUN Creatinine Glucose POC Glucose 204 H Lactic Acid Calcium Phosphorus Magnesium Direct Bilirubin AST ALT Alkaline Phosphatase Lactate Dehydrogenase Troponin T C-Reactive Protein Total Protein Albumin Prealbumin Triglycerides Cholesterol LDL Cholesterol Direct HDL Cholesterol Urine pH Urine WBC (Auto) 68.0 H Urine Creatinine 106.1 H Urine Total Protein Fluid Total Protein Vancomycin Trough Rheumatoid Factor Complement C4 Miscellaneous Test Crossmatch 09/07/16 09/07/16 09/07/16 04:50 06:19 06:39 WBC RBC Hgb Hct MCV MCH MCHC RDW Plt Count Lymph % (Auto) [place] % (Auto) Lymph # [place] # Baso # Seg Neutrophils % Seg Neuts % (Manual) Lymphocytes % (Manual) Monocytes % (Manual) Eosinophils % (Manual) Basophils % (Manual) Nucleated RBC % Seg Neutrophils # Seg Neutrophils # Man Lymphocytes # (Manual) Monocytes # (Manual) Eosinophils # (Manual) Basophils # (Manual) PT INR Fibrinogen dRVVT Confirm Interp Factor V Activity POC ABG pH 7.457 H POC ABG pCO2 32.1 L POC ABG pO2 76 L ABG pO2 ABG HCO3 ABG Base Excess ABG Hemoglobin Oxyhemoglobin Sodium 132 L Potassium Chloride 94.7 L Carbon Dioxide BUN 53 H Creatinine 2.9 H Glucose 151 H POC Glucose 149 H Lactic Acid Calcium Phosphorus Magnesium Direct Bilirubin AST ALT Alkaline Phosphatase Lactate Dehydrogenase Troponin T C-Reactive Protein Total Protein Albumin Prealbumin Triglycerides Cholesterol LDL Cholesterol Direct HDL Cholesterol Urine pH Urine WBC (Auto) Urine Creatinine Urine Total Protein Fluid Total Protein Vancomycin Trough Rheumatoid Factor Complement C4 Miscellaneous Test Crossmatch 09/07/16 09/07/16 09/07/16 09:20 11:43 11:43 WBC 19.4 H RBC Hgb 8.3 L Hct 26.4 L D MCV 72 L D MCH 22 L MCHC RDW 17.9 H Plt Count Lymph % (Auto) 8.5 L [place] % (Auto) Lymph # [place] # 1.0 H Baso # Seg Neutrophils % 85.8 H Seg Neuts % (Manual) Lymphocytes % (Manual) Monocytes % (Manual) Eosinophils % (Manual) Basophils % (Manual) Nucleated RBC % Seg Neutrophils # 16.6 H Seg Neutrophils # Man Lymphocytes # (Manual) Monocytes # (Manual) Eosinophils # (Manual) Basophils # (Manual) PT INR Fibrinogen dRVVT Confirm Interp Factor V Activity POC ABG pH POC ABG pCO2 POC ABG pO2 ABG pO2 ABG HCO3 ABG Base Excess ABG Hemoglobin Oxyhemoglobin Sodium 134 L Potassium Chloride 97.2 L Carbon Dioxide 20 L BUN 58 H Creatinine 2.9 H Glucose 147 H POC Glucose Lactic Acid Calcium Phosphorus 2.40 L Magnesium 2.40 H Direct Bilirubin AST ALT Alkaline Phosphatase Lactate Dehydrogenase Troponin T C-Reactive Protein Total Protein 5.8 L Albumin 2.2 L Prealbumin Triglycerides Cholesterol LDL Cholesterol Direct HDL Cholesterol Urine pH Urine WBC (Auto) Urine Creatinine Urine Total Protein Fluid Total Protein Vancomycin Trough Rheumatoid Factor Complement C4 58 H Miscellaneous Test Crossmatch 09/07/16 09/07/16 09/07/16 11:50 16:00 17:31 WBC RBC Hgb Hct MCV MCH MCHC RDW Plt Count Lymph % (Auto) [place] % (Auto) Lymph # [place] # Baso # Seg Neutrophils % Seg Neuts % (Manual) Lymphocytes % (Manual) Monocytes % (Manual) Eosinophils % (Manual) Basophils % (Manual) Nucleated RBC % Seg Neutrophils # Seg Neutrophils # Man Lymphocytes # (Manual) Monocytes # (Manual) Eosinophils # (Manual) Basophils # (Manual) PT INR Fibrinogen dRVVT Confirm Interp Factor V Activity POC ABG pH POC ABG pCO2 POC ABG pO2 158 H ABG pO2 ABG HCO3 ABG Base Excess ABG Hemoglobin Oxyhemoglobin Sodium Potassium Chloride Carbon Dioxide BUN Creatinine Glucose POC Glucose 175 H Lactic Acid Calcium Phosphorus Magnesium Direct Bilirubin AST ALT Alkaline Phosphatase Lactate Dehydrogenase Troponin T C-Reactive Protein Total Protein Albumin Prealbumin Triglycerides Cholesterol LDL Cholesterol Direct HDL Cholesterol Urine pH Urine WBC (Auto) Urine Creatinine 66.3 H Urine Total Protein Fluid Total Protein Vancomycin Trough Rheumatoid Factor Complement C4 Miscellaneous Test Crossmatch 09/07/16 09/08/16 09/08/16 23:50 05:46 06:18 WBC 17.8 H RBC 3.58 L Hgb 8.1 L Hct 25.5 L MCV 71 L MCH 23 L MCHC RDW 18.4 H Plt Count Lymph % (Auto) [place] % (Auto) Lymph # [place] # Baso # Seg Neutrophils % Seg Neuts % (Manual) 92.0 H Lymphocytes % (Manual) 6.0 L Monocytes % (Manual) Eosinophils % (Manual) Basophils % (Manual) Nucleated RBC % Seg Neutrophils # Seg Neutrophils # Man 16.4 H Lymphocytes # (Manual) 1.1 L Monocytes # (Manual) Eosinophils # (Manual) Basophils # (Manual) PT INR Fibrinogen dRVVT Confirm Interp Factor V Activity POC ABG pH POC ABG pCO2 34.3 L POC ABG pO2 71 L ABG pO2 ABG HCO3 ABG Base Excess ABG Hemoglobin Oxyhemoglobin Sodium Potassium Chloride Carbon Dioxide BUN Creatinine Glucose POC Glucose 216 H Lactic Acid Calcium Phosphorus Magnesium Direct Bilirubin AST ALT Alkaline Phosphatase Lactate Dehydrogenase Troponin T C-Reactive Protein Total Protein Albumin Prealbumin Triglycerides Cholesterol LDL Cholesterol Direct HDL Cholesterol Urine pH Urine WBC (Auto) Urine Creatinine Urine Total Protein Fluid Total Protein Vancomycin Trough Rheumatoid Factor Complement C4 Miscellaneous Test Crossmatch 09/08/16 09/08/1617 06:18 06:51 10:55 WBC RBC Hgb Hct MCV MCH MCHC RDW Plt Count Lymph % (Auto) [place] % (Auto) Lymph # [place] # Baso # Seg Neutrophils % Seg Neuts % (Manual) Lymphocytes % (Manual) Monocytes % (Manual) Eosinophils % (Manual) Basophils % (Manual) Nucleated RBC % Seg Neutrophils # Seg Neutrophils # Man Lymphocytes # (Manual) Monocytes # (Manual) Eosinophils # (Manual) Basophils # (Manual) PT INR Fibrinogen dRVVT Confirm Interp Factor V Activity POC ABG pH POC ABG pCO2 POC ABG pO2 ABG pO2 ABG HCO3 ABG Base Excess ABG Hemoglobin Oxyhemoglobin Sodium 133 L Potassium Chloride 96.9 L Carbon Dioxide 20 L BUN 63 H Creatinine 2.7 H Glucose 195 H POC Glucose 204 H 169 H Lactic Acid Calcium Phosphorus Magnesium Direct Bilirubin AST ALT Alkaline Phosphatase Lactate Dehydrogenase Troponin T C-Reactive Protein Total Protein Albumin Prealbumin Triglycerides Cholesterol LDL Cholesterol Direct HDL Cholesterol Urine pH Urine WBC (Auto) Urine Creatinine Urine Total Protein Fluid Total Protein Vancomycin Trough Rheumatoid Factor Complement C4 Miscellaneous Test Crossmatch 09/08/16 09/08/16 09/08/16 11:48 11:48 11:48 WBC RBC Hgb Hct MCV MCH MCHC RDW Plt Count Lymph % (Auto) [place] % (Auto) Lymph # [place] # Baso # Seg Neutrophils % Seg Neuts % (Manual) Lymphocytes % (Manual) Monocytes % (Manual) Eosinophils % (Manual) Basophils % (Manual) Nucleated RBC % Seg Neutrophils # Seg Neutrophils # Man Lymphocytes # (Manual) Monocytes # (Manual) Eosinophils # (Manual) Basophils # (Manual) PT INR Fibrinogen 750 H dRVVT Confirm Interp Factor V Activity POC ABG pH POC ABG pCO2 POC ABG pO2 ABG pO2 ABG HCO3 ABG Base Excess ABG Hemoglobin Oxyhemoglobin Sodium Potassium Chloride Carbon Dioxide BUN Creatinine Glucose POC Glucose Lactic Acid Calcium Phosphorus Magnesium Direct Bilirubin AST ALT Alkaline Phosphatase Lactate Dehydrogenase Troponin T C-Reactive Protein 15.70 H Total Protein Albumin Prealbumin Triglycerides Cholesterol LDL Cholesterol Direct HDL Cholesterol Urine pH Urine WBC (Auto) Urine Creatinine Urine Total Protein Fluid Total Protein Vancomycin Trough Rheumatoid Factor 24 H Complement C4 Miscellaneous Test Crossmatch 09/08/16 09/08/16 09/09/16 15:35 18:25 00:24 WBC RBC Hgb Hct MCV MCH MCHC RDW Plt Count Lymph % (Auto) [place] % (Auto) Lymph # [place] # Baso # Seg Neutrophils % Seg Neuts % (Manual) Lymphocytes % (Manual) Monocytes % (Manual) Eosinophils % (Manual) Basophils % (Manual) Nucleated RBC % Seg Neutrophils # Seg Neutrophils # Man Lymphocytes # (Manual) Monocytes # (Manual) Eosinophils # (Manual) Basophils # (Manual) PT INR Fibrinogen dRVVT Confirm Interp Factor V Activity 182 H POC ABG pH POC ABG pCO2 POC ABG pO2 ABG pO2 ABG HCO3 ABG Base Excess ABG Hemoglobin Oxyhemoglobin Sodium Potassium Chloride Carbon Dioxide BUN Creatinine Glucose POC Glucose 184 H 216 H Lactic Acid Calcium Phosphorus Magnesium Direct Bilirubin AST ALT Alkaline Phosphatase Lactate Dehydrogenase Troponin T C-Reactive Protein Total Protein Albumin Prealbumin Triglycerides Cholesterol LDL Cholesterol Direct HDL Cholesterol Urine pH Urine WBC (Auto) Urine Creatinine Urine Total Protein Fluid Total Protein Vancomycin Trough Rheumatoid Factor Complement C4 Miscellaneous Test Crossmatch 09/09/16 09/09/16 09/09/16 03:00 03:00 04:04 WBC 27.9 H RBC Hgb 8.7 L Hct 28.1 L MCV 72 L MCH 22 L MCHC RDW 18.4 H Plt Count 485 H Lymph % (Auto) [place] % (Auto) Lymph # [place] # Baso # Seg Neutrophils % Seg Neuts % (Manual) 77.0 H Lymphocytes % (Manual) 9.0 L Monocytes % (Manual) Eosinophils % (Manual) Basophils % (Manual) Nucleated RBC % Seg Neutrophils # Seg Neutrophils # Man 21.5 H Lymphocytes # (Manual) Monocytes # (Manual) 2.0 H Eosinophils # (Manual) Basophils # (Manual) PT INR Fibrinogen dRVVT Confirm Interp Factor V Activity POC ABG pH POC ABG pCO2 POC ABG pO2 121 H ABG pO2 ABG HCO3 ABG Base Excess ABG Hemoglobin Oxyhemoglobin Sodium 135 L Potassium Chloride 96.3 L Carbon Dioxide 21 L BUN 83 H Creatinine 3.0 H Glucose 135 H POC Glucose Lactic Acid Calcium Phosphorus Magnesium Direct Bilirubin AST ALT Alkaline Phosphatase Lactate Dehydrogenase Troponin T C-Reactive Protein Total Protein Albumin Prealbumin Triglycerides Cholesterol LDL Cholesterol Direct HDL Cholesterol Urine pH Urine WBC (Auto) Urine Creatinine Urine Total Protein Fluid Total Protein Vancomycin Trough Rheumatoid Factor Complement C4 Miscellaneous Test Crossmatch 09/09/16 09/09/16 09/09/16 05:41 11:55 14:13 WBC RBC Hgb Hct MCV MCH MCHC RDW Plt Count Lymph % (Auto) [place] % (Auto) Lymph # [place] # Baso # Seg Neutrophils % Seg Neuts % (Manual) Lymphocytes % (Manual) Monocytes % (Manual) Eosinophils % (Manual) Basophils % (Manual) Nucleated RBC % Seg Neutrophils # Seg Neutrophils # Man Lymphocytes # (Manual) Monocytes # (Manual) Eosinophils # (Manual) Basophils # (Manual) PT INR Fibrinogen dRVVT Confirm Interp Factor V Activity POC ABG pH POC ABG pCO2 POC ABG pO2 ABG pO2 ABG HCO3 ABG Base Excess ABG Hemoglobin Oxyhemoglobin Sodium Potassium Chloride Carbon Dioxide BUN Creatinine Glucose POC Glucose 155 H 186 H Lactic Acid Calcium Phosphorus Magnesium Direct Bilirubin AST ALT Alkaline Phosphatase Lactate Dehydrogenase Troponin T C-Reactive Protein Total Protein Albumin Prealbumin Triglycerides Cholesterol LDL Cholesterol Direct HDL Cholesterol Urine pH Urine WBC (Auto) 25.0 H Urine Creatinine Urine Total Protein Fluid Total Protein Vancomycin Trough Rheumatoid Factor Complement C4 Miscellaneous Test Crossmatch 09/09/16 09/09/16 09/10/16 17:33 23:13 05:09 WBC RBC Hgb Hct MCV MCH MCHC RDW Plt Count Lymph % (Auto) [place] % (Auto) Lymph # [place] # Baso # Seg Neutrophils % Seg Neuts % (Manual) Lymphocytes % (Manual) Monocytes % (Manual) Eosinophils % (Manual) Basophils % (Manual) Nucleated RBC % Seg Neutrophils # Seg Neutrophils # Man Lymphocytes # (Manual) Monocytes # (Manual) Eosinophils # (Manual) Basophils # (Manual) PT INR Fibrinogen dRVVT Confirm Interp Factor V Activity POC ABG pH POC ABG pCO2 POC ABG pO2 74 L ABG pO2 ABG HCO3 ABG Base Excess ABG Hemoglobin Oxyhemoglobin Sodium Potassium Chloride Carbon Dioxide BUN Creatinine Glucose POC Glucose 211 H 215 H Lactic Acid Calcium Phosphorus Magnesium Direct Bilirubin AST ALT Alkaline Phosphatase Lactate Dehydrogenase Troponin T C-Reactive Protein Total Protein Albumin Prealbumin Triglycerides Cholesterol LDL Cholesterol Direct HDL Cholesterol Urine pH Urine WBC (Auto) Urine Creatinine Urine Total Protein Fluid Total Protein Vancomycin Trough Rheumatoid Factor Complement C4 Miscellaneous Test Crossmatch 09/10/16 09/10/16 09/10/16 05:17 05:17 11:31 WBC 15.8 H RBC 3.25 L Hgb 7.3 L Hct 22.9 L MCV 71 L MCH 23 L MCHC RDW 18.4 H Plt Count Lymph % (Auto) [place] % (Auto) Lymph # [place] # Baso # Seg Neutrophils % Seg Neuts % (Manual) 91.0 H Lymphocytes % (Manual) 4.0 L Monocytes % (Manual) Eosinophils % (Manual) Basophils % (Manual) Nucleated RBC % Seg Neutrophils # Seg Neutrophils # Man 14.4 H Lymphocytes # (Manual) 0.6 L Monocytes # (Manual) Eosinophils # (Manual) Basophils # (Manual) PT INR Fibrinogen dRVVT Confirm Interp Factor V Activity POC ABG pH POC ABG pCO2 POC ABG pO2 ABG pO2 ABG HCO3 ABG Base Excess ABG Hemoglobin Oxyhemoglobin Sodium Potassium Chloride Carbon Dioxide 21 L BUN 93 H Creatinine 2.9 H Glucose 146 H POC Glucose 188 H Lactic Acid Calcium 8.1 L Phosphorus Magnesium Direct Bilirubin AST ALT Alkaline Phosphatase Lactate Dehydrogenase Troponin T C-Reactive Protein Total Protein Albumin Prealbumin Triglycerides Cholesterol LDL Cholesterol Direct HDL Cholesterol Urine pH Urine WBC (Auto) Urine Creatinine Urine Total Protein Fluid Total Protein Vancomycin Trough Rheumatoid Factor Complement C4 Miscellaneous Test Crossmatch 09/10/16 09/10/16 09/10/16 13:17 17:20 23:32 WBC RBC Hgb Hct MCV MCH MCHC RDW Plt Count Lymph % (Auto) [place] % (Auto) Lymph # [place] # Baso # Seg Neutrophils % Seg Neuts % (Manual) Lymphocytes % (Manual) Monocytes % (Manual) Eosinophils % (Manual) Basophils % (Manual) Nucleated RBC % Seg Neutrophils # Seg Neutrophils # Man Lymphocytes # (Manual) Monocytes # (Manual) Eosinophils # (Manual) Basophils # (Manual) PT INR Fibrinogen dRVVT Confirm Interp Factor V Activity POC ABG pH POC ABG pCO2 POC ABG pO2 ABG pO2 ABG HCO3 ABG Base Excess ABG Hemoglobin Oxyhemoglobin Sodium Potassium Chloride Carbon Dioxide BUN Creatinine Glucose POC Glucose 199 H 186 H Lactic Acid Calcium Phosphorus Magnesium Direct Bilirubin AST ALT Alkaline Phosphatase Lactate Dehydrogenase Troponin T C-Reactive Protein Total Protein Albumin Prealbumin Triglycerides Cholesterol LDL Cholesterol Direct HDL Cholesterol Urine pH Urine WBC (Auto) Urine Creatinine Urine Total Protein Fluid Total Protein Vancomycin Trough Rheumatoid Factor Complement C4 Miscellaneous Test Crossmatch See Detail 09/11/16 09/11/16 09/11/16 05:10 05:10 05:17 WBC 28.4 H RBC Hgb 9.2 L Hct 29.3 L D MCV 73 L MCH 23 L MCHC RDW 18.9 H Plt Count 452 H Lymph % (Auto) [place] % (Auto) Lymph # [place] # Baso # Seg Neutrophils % Seg Neuts % (Manual) 89.5 H Lymphocytes % (Manual) 2.0 L Monocytes % (Manual) Eosinophils % (Manual) Basophils % (Manual) Nucleated RBC % Seg Neutrophils # Seg Neutrophils # Man 25.4 H Lymphocytes # (Manual) 0.6 L Monocytes # (Manual) 1.3 H Eosinophils # (Manual) Basophils # (Manual) PT INR Fibrinogen dRVVT Confirm Interp Factor V Activity POC ABG pH POC ABG pCO2 POC ABG pO2 ABG pO2 ABG HCO3 ABG Base Excess ABG Hemoglobin Oxyhemoglobin Sodium 136 L Potassium Chloride Carbon Dioxide 18 L BUN 107 H Creatinine 2.6 H Glucose 187 H POC Glucose 230 H Lactic Acid Calcium 8.3 L Phosphorus Magnesium Direct Bilirubin AST ALT Alkaline Phosphatase Lactate Dehydrogenase Troponin T C-Reactive Protein Total Protein Albumin Prealbumin Triglycerides Cholesterol LDL Cholesterol Direct HDL Cholesterol Urine pH Urine WBC (Auto) Urine Creatinine Urine Total Protein Fluid Total Protein Vancomycin Trough Rheumatoid Factor Complement C4 Miscellaneous Test Crossmatch 09/11/16 09/11/16 09/11/16 05:55 12:02 17:32 WBC RBC Hgb Hct MCV MCH MCHC RDW Plt Count Lymph % (Auto) [place] % (Auto) Lymph # [place] # Baso # Seg Neutrophils % Seg Neuts % (Manual) Lymphocytes % (Manual) Monocytes % (Manual) Eosinophils % (Manual) Basophils % (Manual) Nucleated RBC % Seg Neutrophils # Seg Neutrophils # Man Lymphocytes # (Manual) Monocytes # (Manual) Eosinophils # (Manual) Basophils # (Manual) PT INR Fibrinogen dRVVT Confirm Interp Factor V Activity POC ABG pH POC ABG pCO2 33.8 L POC ABG pO2 ABG pO2 ABG HCO3 ABG Base Excess ABG Hemoglobin Oxyhemoglobin Sodium Potassium Chloride Carbon Dioxide BUN Creatinine Glucose POC Glucose 191 H 239 H Lactic Acid Calcium Phosphorus Magnesium Direct Bilirubin AST ALT Alkaline Phosphatase Lactate Dehydrogenase Troponin T C-Reactive Protein Total Protein Albumin Prealbumin Triglycerides Cholesterol LDL Cholesterol Direct HDL Cholesterol Urine pH Urine WBC (Auto) Urine Creatinine Urine Total Protein Fluid Total Protein Vancomycin Trough Rheumatoid Factor Complement C4 Miscellaneous Test Crossmatch 09/11/16 09/12/16 09/12/16 23:52 05:09 05:32 WBC RBC Hgb Hct MCV MCH MCHC RDW Plt Count Lymph % (Auto) [place] % (Auto) Lymph # [place] # Baso # Seg Neutrophils % Seg Neuts % (Manual) Lymphocytes % (Manual) Monocytes % (Manual) Eosinophils % (Manual) Basophils % (Manual) Nucleated RBC % Seg Neutrophils # Seg Neutrophils # Man Lymphocytes # (Manual) Monocytes # (Manual) Eosinophils # (Manual) Basophils # (Manual) PT INR Fibrinogen dRVVT Confirm Interp Factor V Activity POC ABG pH POC ABG pCO2 34.6 L POC ABG pO2 ABG pO2 ABG HCO3 ABG Base Excess ABG Hemoglobin Oxyhemoglobin Sodium Potassium Chloride Carbon Dioxide BUN Creatinine Glucose POC Glucose 265 H 184 H Lactic Acid Calcium Phosphorus Magnesium Direct Bilirubin AST ALT Alkaline Phosphatase Lactate Dehydrogenase Troponin T C-Reactive Protein Total Protein Albumin Prealbumin Triglycerides Cholesterol LDL Cholesterol Direct HDL Cholesterol Urine pH Urine WBC (Auto) Urine Creatinine Urine Total Protein Fluid Total Protein Vancomycin Trough Rheumatoid Factor Complement C4 Miscellaneous Test Crossmatch 09/12/16 09/12/16 09/12/16 06:45 06:45 07:22 WBC 31.7 H RBC 3.54 L Hgb 8.3 L Hct 25.9 L MCV 73 L MCH 23 L MCHC RDW 18.9 H Plt Count Lymph % (Auto) [place] % (Auto) Lymph # [place] # Baso # Seg Neutrophils % Seg Neuts % (Manual) 88.5 H Lymphocytes % (Manual) 4.5 L Monocytes % (Manual) Eosinophils % (Manual) Basophils % (Manual) Nucleated RBC % Seg Neutrophils # Seg Neutrophils # Man 28.1 H Lymphocytes # (Manual) Monocytes # (Manual) 1.0 H Eosinophils # (Manual) Basophils # (Manual) PT INR Fibrinogen dRVVT Confirm Interp Factor V Activity POC ABG pH POC ABG pCO2 POC ABG pO2 ABG pO2 ABG HCO3 ABG Base Excess ABG Hemoglobin Oxyhemoglobin Sodium Potassium Chloride Carbon Dioxide 20 L BUN 115 H Creatinine 2.7 H Glucose 165 H POC Glucose Lactic Acid Calcium 8.0 L Phosphorus Magnesium Direct Bilirubin AST ALT Alkaline Phosphatase Lactate Dehydrogenase Troponin T C-Reactive Protein Total Protein Albumin Prealbumin Triglycerides 217 H Cholesterol LDL Cholesterol Direct HDL Cholesterol Urine pH Urine WBC (Auto) Urine Creatinine Urine Total Protein Fluid Total Protein Vancomycin Trough Rheumatoid Factor Complement C4 Miscellaneous Test Crossmatch 09/12/16 09/12/16 09/12/16 07:22 09:59 12:21 WBC RBC Hgb Hct MCV MCH MCHC RDW Plt Count Lymph % (Auto) [place] % (Auto) Lymph # [place] # Baso # Seg Neutrophils % Seg Neuts % (Manual) Lymphocytes % (Manual) Monocytes % (Manual) Eosinophils % (Manual) Basophils % (Manual) Nucleated RBC % Seg Neutrophils # Seg Neutrophils # Man Lymphocytes # (Manual) Monocytes # (Manual) Eosinophils # (Manual) Basophils # (Manual) PT INR Fibrinogen dRVVT Confirm Interp Positive H Factor V Activity POC ABG pH POC ABG pCO2 POC ABG pO2 ABG pO2 ABG HCO3 ABG Base Excess ABG Hemoglobin Oxyhemoglobin Sodium Potassium Chloride Carbon Dioxide BUN Creatinine Glucose POC Glucose 224 H Lactic Acid Calcium Phosphorus Magnesium Direct Bilirubin AST ALT Alkaline Phosphatase Lactate Dehydrogenase Troponin T C-Reactive Protein 1.70 H Total Protein Albumin Prealbumin Triglycerides Cholesterol LDL Cholesterol Direct HDL Cholesterol Urine pH Urine WBC (Auto) Urine Creatinine Urine Total Protein Fluid Total Protein Vancomycin Trough Rheumatoid Factor Complement C4 Miscellaneous Test Crossmatch 09/12/16 09/12/16 09/13/16 16:51 23:28 04:00 WBC 45.0 H* RBC Hgb 9.4 L Hct MCV 75 L MCH 23 L MCHC RDW 19.0 H Plt Count 470 H Lymph % (Auto) [place] % (Auto) Lymph # [place] # Baso # Seg Neutrophils % Seg Neuts % (Manual) 89.0 H Lymphocytes % (Manual) 5.0 L Monocytes % (Manual) Eosinophils % (Manual) Basophils % (Manual) Nucleated RBC % Seg Neutrophils # Seg Neutrophils # Man 40.1 H Lymphocytes # (Manual) Monocytes # (Manual) Eosinophils # (Manual) Basophils # (Manual) PT INR Fibrinogen dRVVT Confirm Interp Factor V Activity POC ABG pH POC ABG pCO2 POC ABG pO2 ABG pO2 ABG HCO3 ABG Base Excess ABG Hemoglobin Oxyhemoglobin Sodium Potassium Chloride Carbon Dioxide BUN Creatinine Glucose POC Glucose 169 H 150 H Lactic Acid Calcium Phosphorus Magnesium Direct Bilirubin AST ALT Alkaline Phosphatase Lactate Dehydrogenase Troponin T C-Reactive Protein Total Protein Albumin Prealbumin Triglycerides Cholesterol LDL Cholesterol Direct HDL Cholesterol Urine pH Urine WBC (Auto) Urine Creatinine Urine Total Protein Fluid Total Protein Vancomycin Trough Rheumatoid Factor Complement C4 Miscellaneous Test Crossmatch 09/13/16 09/13/16 09/13/16 04:00 11:26 17:31 WBC RBC Hgb Hct MCV MCH MCHC RDW Plt Count Lymph % (Auto) [place] % (Auto) Lymph # [place] # Baso # Seg Neutrophils % Seg Neuts % (Manual) Lymphocytes % (Manual) Monocytes % (Manual) Eosinophils % (Manual) Basophils % (Manual) Nucleated RBC % Seg Neutrophils # Seg Neutrophils # Man Lymphocytes # (Manual) Monocytes # (Manual) Eosinophils # (Manual) Basophils # (Manual) PT INR Fibrinogen dRVVT Confirm Interp Factor V Activity POC ABG pH POC ABG pCO2 POC ABG pO2 ABG pO2 ABG HCO3 ABG Base Excess ABG Hemoglobin Oxyhemoglobin Sodium Potassium Chloride Carbon Dioxide 20 L BUN 116 H Creatinine 3.0 H Glucose 172 H POC Glucose 140 H 183 H Lactic Acid Calcium Phosphorus Magnesium Direct Bilirubin AST ALT Alkaline Phosphatase Lactate Dehydrogenase Troponin T C-Reactive Protein Total Protein 6.2 L Albumin 2.9 L Prealbumin Triglycerides Cholesterol LDL Cholesterol Direct HDL Cholesterol Urine pH Urine WBC (Auto) Urine Creatinine Urine Total Protein Fluid Total Protein Vancomycin Trough Rheumatoid Factor Complement C4 Miscellaneous Test Crossmatch 09/13/16 09/14/16 09/14/16 23:23 04:06 04:07 WBC 29.4 H RBC Hgb 8.9 L Hct 27.3 L MCV 75 L MCH 24 L MCHC RDW 19.1 H Plt Count Lymph % (Auto) [place] % (Auto) Lymph # [place] # Baso # Seg Neutrophils % Seg Neuts % (Manual) 84.0 H Lymphocytes % (Manual) 6.0 L Monocytes % (Manual) 9.0 H Eosinophils % (Manual) Basophils % (Manual) Nucleated RBC % Seg Neutrophils # Seg Neutrophils # Man 24.7 H Lymphocytes # (Manual) Monocytes # (Manual) 2.6 H Eosinophils # (Manual) Basophils # (Manual) PT INR Fibrinogen dRVVT Confirm Interp Factor V Activity POC ABG pH 7.342 L POC ABG pCO2 POC ABG pO2 116 H ABG pO2 ABG HCO3 ABG Base Excess ABG Hemoglobin Oxyhemoglobin Sodium Potassium Chloride Carbon Dioxide BUN Creatinine Glucose POC Glucose 154 H Lactic Acid Calcium Phosphorus Magnesium Direct Bilirubin AST ALT Alkaline Phosphatase Lactate Dehydrogenase Troponin T C-Reactive Protein Total Protein Albumin Prealbumin Triglycerides Cholesterol LDL Cholesterol Direct HDL Cholesterol Urine pH Urine WBC (Auto) Urine Creatinine Urine Total Protein Fluid Total Protein Vancomycin Trough Rheumatoid Factor Complement C4 Miscellaneous Test Crossmatch 09/14/16 09/14/16 09/14/16 04:07 05:29 12:19 WBC RBC Hgb Hct MCV MCH MCHC RDW Plt Count Lymph % (Auto) [place] % (Auto) Lymph # [place] # Baso # Seg Neutrophils % Seg Neuts % (Manual) Lymphocytes % (Manual) Monocytes % (Manual) Eosinophils % (Manual) Basophils % (Manual) Nucleated RBC % Seg Neutrophils # Seg Neutrophils # Man Lymphocytes # (Manual) Monocytes # (Manual) Eosinophils # (Manual) Basophils # (Manual) PT INR Fibrinogen dRVVT Confirm Interp Factor V Activity POC ABG pH POC ABG pCO2 POC ABG pO2 ABG pO2 ABG HCO3 ABG Base Excess ABG Hemoglobin Oxyhemoglobin Sodium 136 L Potassium Chloride Carbon Dioxide 18 L BUN 121 H Creatinine 2.8 H Glucose 214 H POC Glucose 239 H 181 H Lactic Acid Calcium Phosphorus Magnesium Direct Bilirubin AST ALT Alkaline Phosphatase Lactate Dehydrogenase Troponin T C-Reactive Protein Total Protein Albumin Prealbumin Triglycerides Cholesterol LDL Cholesterol Direct HDL Cholesterol Urine pH Urine WBC (Auto) Urine Creatinine Urine Total Protein Fluid Total Protein Vancomycin Trough Rheumatoid Factor Complement C4 Miscellaneous Test Crossmatch 09/14/16 09/14/16 09/15/16 18:12 23:37 05:00 WBC 26.1 H RBC 3.05 L Hgb 7.2 L Hct 22.9 L MCV 75 L MCH 24 L MCHC RDW 19.0 H Plt Count Lymph % (Auto) [place] % (Auto) Lymph # [place] # Baso # Seg Neutrophils % Seg Neuts % (Manual) Lymphocytes % (Manual) Monocytes % (Manual) Eosinophils % (Manual) Basophils % (Manual) Nucleated RBC % Seg Neutrophils # Seg Neutrophils # Man Lymphocytes # (Manual) Monocytes # (Manual) Eosinophils # (Manual) Basophils # (Manual) PT INR Fibrinogen dRVVT Confirm Interp Factor V Activity POC ABG pH POC ABG pCO2 POC ABG pO2 ABG pO2 ABG HCO3 ABG Base Excess ABG Hemoglobin Oxyhemoglobin Sodium Potassium Chloride Carbon Dioxide BUN Creatinine Glucose POC Glucose 266 H 154 H Lactic Acid Calcium Phosphorus Magnesium Direct Bilirubin AST ALT Alkaline Phosphatase Lactate Dehydrogenase Troponin T C-Reactive Protein Total Protein Albumin Prealbumin Triglycerides Cholesterol LDL Cholesterol Direct HDL Cholesterol Urine pH Urine WBC (Auto) Urine Creatinine Urine Total Protein Fluid Total Protein Vancomycin Trough Rheumatoid Factor Complement C4 Miscellaneous Test Crossmatch 09/15/16 09/15/16 09/15/16 05:00 05:17 12:45 WBC RBC Hgb Hct MCV MCH MCHC RDW Plt Count Lymph % (Auto) [place] % (Auto) Lymph # [place] # Baso # Seg Neutrophils % Seg Neuts % (Manual) Lymphocytes % (Manual) Monocytes % (Manual) Eosinophils % (Manual) Basophils % (Manual) Nucleated RBC % Seg Neutrophils # Seg Neutrophils # Man Lymphocytes # (Manual) Monocytes # (Manual) Eosinophils # (Manual) Basophils # (Manual) PT INR Fibrinogen dRVVT Confirm Interp Factor V Activity POC ABG pH POC ABG pCO2 POC ABG pO2 ABG pO2 ABG HCO3 ABG Base Excess ABG Hemoglobin Oxyhemoglobin Sodium Potassium 5.2 H Chloride Carbon Dioxide 18 L BUN 139 H Creatinine 3.7 H Glucose 227 H POC Glucose 226 H 244 H Lactic Acid Calcium 8.3 L Phosphorus Magnesium Direct Bilirubin AST ALT Alkaline Phosphatase Lactate Dehydrogenase Troponin T C-Reactive Protein Total Protein Albumin Prealbumin Triglycerides Cholesterol LDL Cholesterol Direct HDL Cholesterol Urine pH Urine WBC (Auto) Urine Creatinine Urine Total Protein Fluid Total Protein Vancomycin Trough Rheumatoid Factor Complement C4 Miscellaneous Test Crossmatch 09/15/16 09/15/16 09/15/16 14:32 17:33 23:35 WBC RBC Hgb Hct MCV MCH MCHC RDW Plt Count Lymph % (Auto) [place] % (Auto) Lymph # [place] # Baso # Seg Neutrophils % Seg Neuts % (Manual) Lymphocytes % (Manual) Monocytes % (Manual) Eosinophils % (Manual) Basophils % (Manual) Nucleated RBC % Seg Neutrophils # Seg Neutrophils # Man Lymphocytes # (Manual) Monocytes # (Manual) Eosinophils # (Manual) Basophils # (Manual) PT INR Fibrinogen dRVVT Confirm Interp Factor V Activity POC ABG pH POC ABG pCO2 27.7 L POC ABG pO2 120 H ABG pO2 ABG HCO3 ABG Base Excess ABG Hemoglobin Oxyhemoglobin Sodium Potassium Chloride Carbon Dioxide BUN Creatinine Glucose POC Glucose 232 H 167 H Lactic Acid Calcium Phosphorus Magnesium Direct Bilirubin AST ALT Alkaline Phosphatase Lactate Dehydrogenase Troponin T C-Reactive Protein Total Protein Albumin Prealbumin Triglycerides Cholesterol LDL Cholesterol Direct HDL Cholesterol Urine pH Urine WBC (Auto) Urine Creatinine Urine Total Protein Fluid Total Protein Vancomycin Trough Rheumatoid Factor Complement C4 Miscellaneous Test Crossmatch 09/16/16 09/16/16 09/16/16 03:58 10:27 10:27 WBC 19.0 H RBC 2.77 L Hgb 6.5 L Hct 20.9 L MCV 76 L MCH 23 L MCHC RDW 19.3 H Plt Count Lymph % (Auto) 11.0 L [place] % (Auto) Lymph # [place] # 1.1 H Baso # Seg Neutrophils % 82.5 H Seg Neuts % (Manual) Lymphocytes % (Manual) Monocytes % (Manual) Eosinophils % (Manual) Basophils % (Manual) Nucleated RBC % Seg Neutrophils # 15.7 H Seg Neutrophils # Man Lymphocytes # (Manual) Monocytes # (Manual) Eosinophils # (Manual) Basophils # (Manual) PT INR Fibrinogen dRVVT Confirm Interp Factor V Activity POC ABG pH POC ABG pCO2 POC ABG pO2 ABG pO2 ABG HCO3 ABG Base Excess ABG Hemoglobin Oxyhemoglobin Sodium Potassium Chloride 109.3 H Carbon Dioxide 18 L BUN 139 H Creatinine 4.1 H Glucose 144 H POC Glucose 146 H Lactic Acid Calcium 8.1 L Phosphorus Magnesium Direct Bilirubin AST ALT Alkaline Phosphatase Lactate Dehydrogenase Troponin T C-Reactive Protein Total Protein Albumin Prealbumin Triglycerides Cholesterol LDL Cholesterol Direct HDL Cholesterol Urine pH Urine WBC (Auto) Urine Creatinine Urine Total Protein Fluid Total Protein Vancomycin Trough Rheumatoid Factor Complement C4 Miscellaneous Test Crossmatch 09/16/16 09/16/16 09/16/16 12:04 12:10 13:55 WBC RBC Hgb Hct MCV MCH MCHC RDW Plt Count Lymph % (Auto) [place] % (Auto) Lymph # [place] # Baso # Seg Neutrophils % Seg Neuts % (Manual) Lymphocytes % (Manual) Monocytes % (Manual) Eosinophils % (Manual) Basophils % (Manual) Nucleated RBC % Seg Neutrophils # Seg Neutrophils # Man Lymphocytes # (Manual) Monocytes # (Manual) Eosinophils # (Manual) Basophils # (Manual) PT INR Fibrinogen dRVVT Confirm Interp Factor V Activity POC ABG pH POC ABG pCO2 32.9 L POC ABG pO2 ABG pO2 ABG HCO3 ABG Base Excess ABG Hemoglobin Oxyhemoglobin Sodium Potassium Chloride Carbon Dioxide BUN Creatinine Glucose POC Glucose 185 H Lactic Acid Calcium Phosphorus Magnesium Direct Bilirubin AST ALT Alkaline Phosphatase Lactate Dehydrogenase Troponin T C-Reactive Protein Total Protein Albumin Prealbumin Triglycerides Cholesterol LDL Cholesterol Direct HDL Cholesterol Urine pH Urine WBC (Auto) Urine Creatinine Urine Total Protein Fluid Total Protein Vancomycin Trough Rheumatoid Factor Complement C4 Miscellaneous Test Crossmatch See Detail 09/16/16 09/16/16 09/16/16 17:55 19:19 23:48 WBC RBC Hgb Hct MCV MCH MCHC RDW Plt Count Lymph % (Auto) [place] % (Auto) Lymph # [place] # Baso # Seg Neutrophils % Seg Neuts % (Manual) Lymphocytes % (Manual) Monocytes % (Manual) Eosinophils % (Manual) Basophils % (Manual) Nucleated RBC % Seg Neutrophils # Seg Neutrophils # Man Lymphocytes # (Manual) Monocytes # (Manual) Eosinophils # (Manual) Basophils # (Manual) PT INR Fibrinogen dRVVT Confirm Interp Factor V Activity POC ABG pH POC ABG pCO2 POC ABG pO2 ABG pO2 ABG HCO3 ABG Base Excess ABG Hemoglobin Oxyhemoglobin Sodium Potassium Chloride Carbon Dioxide BUN Creatinine Glucose POC Glucose 222 H 107 H Lactic Acid Calcium Phosphorus Magnesium Direct Bilirubin AST ALT Alkaline Phosphatase Lactate Dehydrogenase Troponin T C-Reactive Protein Total Protein Albumin Prealbumin Triglycerides Cholesterol LDL Cholesterol Direct HDL Cholesterol Urine pH Urine WBC (Auto) Urine Creatinine 47.4 H Urine Total Protein 16 H Fluid Total Protein Vancomycin Trough Rheumatoid Factor Complement C4 Miscellaneous Test Crossmatch 09/17/16 09/17/16 09/17/16 03:45 03:45 04:55 WBC 19.6 H RBC 3.41 L Hgb 8.5 L Hct 26.7 L MCV 78 L MCH 25 L MCHC RDW 19.9 H Plt Count Lymph % (Auto) 9.3 L [place] % (Auto) Lymph # [place] # 1.2 H Baso # Seg Neutrophils % 83.9 H Seg Neuts % (Manual) Lymphocytes % (Manual) Monocytes % (Manual) Eosinophils % (Manual) Basophils % (Manual) Nucleated RBC % Seg Neutrophils # 16.4 H Seg Neutrophils # Man Lymphocytes # (Manual) Monocytes # (Manual) Eosinophils # (Manual) Basophils # (Manual) PT INR Fibrinogen dRVVT Confirm Interp Factor V Activity POC ABG pH POC ABG pCO2 POC ABG pO2 ABG pO2 ABG HCO3 ABG Base Excess ABG Hemoglobin Oxyhemoglobin Sodium 146 H Potassium 5.1 H Chloride 110.9 H Carbon Dioxide 16 L BUN 146 H Creatinine 4.0 H Glucose 108 H POC Glucose 133 H Lactic Acid Calcium Phosphorus Magnesium 3.00 H Direct Bilirubin AST ALT Alkaline Phosphatase Lactate Dehydrogenase Troponin T C-Reactive Protein Total Protein Albumin Prealbumin Triglycerides Cholesterol LDL Cholesterol Direct HDL Cholesterol Urine pH Urine WBC (Auto) Urine Creatinine Urine Total Protein Fluid Total Protein Vancomycin Trough Rheumatoid Factor Complement C4 Miscellaneous Test Crossmatch 09/17/16 09/17/16 09/17/16 11:15 17:33 23:47 WBC RBC Hgb Hct MCV MCH MCHC RDW Plt Count Lymph % (Auto) [place] % (Auto) Lymph # [place] # Baso # Seg Neutrophils % Seg Neuts % (Manual) Lymphocytes % (Manual) Monocytes % (Manual) Eosinophils % (Manual) Basophils % (Manual) Nucleated RBC % Seg Neutrophils # Seg Neutrophils # Man Lymphocytes # (Manual) Monocytes # (Manual) Eosinophils # (Manual) Basophils # (Manual) PT INR Fibrinogen dRVVT Confirm Interp Factor V Activity POC ABG pH POC ABG pCO2 POC ABG pO2 ABG pO2 ABG HCO3 ABG Base Excess ABG Hemoglobin Oxyhemoglobin Sodium Potassium Chloride Carbon Dioxide BUN Creatinine Glucose POC Glucose 176 H 246 H 148 H Lactic Acid Calcium Phosphorus Magnesium Direct Bilirubin AST ALT Alkaline Phosphatase Lactate Dehydrogenase Troponin T C-Reactive Protein Total Protein Albumin Prealbumin Triglycerides Cholesterol LDL Cholesterol Direct HDL Cholesterol Urine pH Urine WBC (Auto) Urine Creatinine Urine Total Protein Fluid Total Protein Vancomycin Trough Rheumatoid Factor Complement C4 Miscellaneous Test Crossmatch 09/18/16 09/18/16 09/18/16 05:33 08:31 08:31 WBC 18.0 H RBC 3.17 L Hgb 9.0 L Hct 25.7 L MCV MCH MCHC 35 H RDW 20.4 H Plt Count Lymph % (Auto) [place] % (Auto) Lymph # [place] # Baso # Seg Neutrophils % Seg Neuts % (Manual) Lymphocytes % (Manual) Monocytes % (Manual) Eosinophils % (Manual) Basophils % (Manual) Nucleated RBC % Seg Neutrophils # Seg Neutrophils # Man Lymphocytes # (Manual) Monocytes # (Manual) Eosinophils # (Manual) Basophils # (Manual) PT INR Fibrinogen dRVVT Confirm Interp Factor V Activity POC ABG pH POC ABG pCO2 POC ABG pO2 ABG pO2 ABG HCO3 ABG Base Excess ABG Hemoglobin Oxyhemoglobin Sodium Potassium Chloride Carbon Dioxide 15 L BUN 124 H Creatinine 3.8 H Glucose POC Glucose 120 H Lactic Acid Calcium 8.1 L Phosphorus Magnesium Direct Bilirubin AST ALT Alkaline Phosphatase Lactate Dehydrogenase Troponin T C-Reactive Protein Total Protein Albumin Prealbumin Triglycerides Cholesterol LDL Cholesterol Direct HDL Cholesterol Urine pH Urine WBC (Auto) Urine Creatinine Urine Total Protein Fluid Total Protein Vancomycin Trough Rheumatoid Factor Complement C4 Miscellaneous Test Crossmatch 09/18/16 09/18/16 09/18/16 12:03 15:34 17:50 WBC RBC Hgb Hct MCV MCH MCHC RDW Plt Count Lymph % (Auto) [place] % (Auto) Lymph # [place] # Baso # Seg Neutrophils % Seg Neuts % (Manual) Lymphocytes % (Manual) Monocytes % (Manual) Eosinophils % (Manual) Basophils % (Manual) Nucleated RBC % Seg Neutrophils # Seg Neutrophils # Man Lymphocytes # (Manual) Monocytes # (Manual) Eosinophils # (Manual) Basophils # (Manual) PT INR Fibrinogen dRVVT Confirm Interp Factor V Activity POC ABG pH POC ABG pCO2 25.7 L POC ABG pO2 66 L ABG pO2 ABG HCO3 ABG Base Excess ABG Hemoglobin Oxyhemoglobin Sodium Potassium Chloride Carbon Dioxide BUN Creatinine Glucose POC Glucose 156 H 220 H Lactic Acid Calcium Phosphorus Magnesium Direct Bilirubin AST ALT Alkaline Phosphatase Lactate Dehydrogenase Troponin T C-Reactive Protein Total Protein Albumin Prealbumin Triglycerides Cholesterol LDL Cholesterol Direct HDL Cholesterol Urine pH Urine WBC (Auto) Urine Creatinine Urine Total Protein Fluid Total Protein Vancomycin Trough Rheumatoid Factor Complement C4 Miscellaneous Test Crossmatch 09/19/16 09/19/16 09/19/16 06:21 09:50 09:50 WBC 17.1 H RBC 3.49 L Hgb 9.0 L Hct 28.1 L MCV MCH 26 L MCHC RDW 20.8 H Plt Count Lymph % (Auto) 11.5 L [place] % (Auto) 7.5 H Lymph # [place] # 1.3 H Baso # Seg Neutrophils % 79.8 H Seg Neuts % (Manual) Lymphocytes % (Manual) Monocytes % (Manual) Eosinophils % (Manual) Basophils % (Manual) Nucleated RBC % Seg Neutrophils # 13.7 H Seg Neutrophils # Man Lymphocytes # (Manual) Monocytes # (Manual) Eosinophils # (Manual) Basophils # (Manual) PT INR Fibrinogen dRVVT Confirm Interp Factor V Activity POC ABG pH POC ABG pCO2 POC ABG pO2 ABG pO2 ABG HCO3 ABG Base Excess ABG Hemoglobin Oxyhemoglobin Sodium Potassium Chloride 108.6 H Carbon Dioxide 15 L BUN 125 H Creatinine 4.1 H Glucose 124 H POC Glucose 119 H Lactic Acid Calcium Phosphorus Magnesium Direct Bilirubin AST ALT Alkaline Phosphatase Lactate Dehydrogenase Troponin T C-Reactive Protein Total Protein Albumin Prealbumin Triglycerides Cholesterol LDL Cholesterol Direct HDL Cholesterol Urine pH Urine WBC (Auto) Urine Creatinine Urine Total Protein Fluid Total Protein Vancomycin Trough Rheumatoid Factor Complement C4 Miscellaneous Test Crossmatch 09/19/16 09/19/16 09/19/16 11:25 17:53 23:36 WBC RBC Hgb Hct MCV MCH MCHC RDW Plt Count Lymph % (Auto) [place] % (Auto) Lymph # [place] # Baso # Seg Neutrophils % Seg Neuts % (Manual) Lymphocytes % (Manual) Monocytes % (Manual) Eosinophils % (Manual) Basophils % (Manual) Nucleated RBC % Seg Neutrophils # Seg Neutrophils # Man Lymphocytes # (Manual) Monocytes # (Manual) Eosinophils # (Manual) Basophils # (Manual) PT INR Fibrinogen dRVVT Confirm Interp Factor V Activity POC ABG pH POC ABG pCO2 POC ABG pO2 ABG pO2 ABG HCO3 ABG Base Excess ABG Hemoglobin Oxyhemoglobin Sodium Potassium Chloride Carbon Dioxide BUN Creatinine Glucose POC Glucose 160 H 245 H 121 H Lactic Acid Calcium Phosphorus Magnesium Direct Bilirubin AST ALT Alkaline Phosphatase Lactate Dehydrogenase Troponin T C-Reactive Protein Total Protein Albumin Prealbumin Triglycerides Cholesterol LDL Cholesterol Direct HDL Cholesterol Urine pH Urine WBC (Auto) Urine Creatinine Urine Total Protein Fluid Total Protein Vancomycin Trough Rheumatoid Factor Complement C4 Miscellaneous Test Crossmatch 09/20/16 09/20/16 09/20/16 04:10 04:10 04:10 WBC 17.0 H RBC 3.21 L Hgb 8.2 L Hct 25.5 L MCV MCH 26 L MCHC RDW 20.9 H Plt Count Lymph % (Auto) [place] % (Auto) Lymph # [place] # Baso # Seg Neutrophils % Seg Neuts % (Manual) Lymphocytes % (Manual) Monocytes % (Manual) Eosinophils % (Manual) Basophils % (Manual) Nucleated RBC % Seg Neutrophils # Seg Neutrophils # Man Lymphocytes # (Manual) Monocytes # (Manual) Eosinophils # (Manual) Basophils # (Manual) PT INR Fibrinogen dRVVT Confirm Interp Factor V Activity POC ABG pH POC ABG pCO2 POC ABG pO2 ABG pO2 ABG HCO3 ABG Base Excess ABG Hemoglobin Oxyhemoglobin Sodium Potassium Chloride 111.0 H Carbon Dioxide 16 L BUN 129 H Creatinine 3.7 H Glucose 115 H POC Glucose Lactic Acid Calcium 8.2 L Phosphorus Magnesium Direct Bilirubin AST ALT Alkaline Phosphatase Lactate Dehydrogenase Troponin T C-Reactive Protein Total Protein Albumin Prealbumin Triglycerides 243 H Cholesterol LDL Cholesterol Direct HDL Cholesterol Urine pH Urine WBC (Auto) Urine Creatinine Urine Total Protein Fluid Total Protein Vancomycin Trough Rheumatoid Factor Complement C4 Miscellaneous Test Crossmatch 09/20/16 09/20/16 09/20/16 05:40 11:52 16:50 WBC RBC Hgb Hct MCV MCH MCHC RDW Plt Count Lymph % (Auto) [place] % (Auto) Lymph # [place] # Baso # Seg Neutrophils % Seg Neuts % (Manual) Lymphocytes % (Manual) Monocytes % (Manual) Eosinophils % (Manual) Basophils % (Manual) Nucleated RBC % Seg Neutrophils # Seg Neutrophils # Man Lymphocytes # (Manual) Monocytes # (Manual) Eosinophils # (Manual) Basophils # (Manual) PT INR Fibrinogen dRVVT Confirm Interp Factor V Activity POC ABG pH POC ABG pCO2 POC ABG pO2 ABG pO2 ABG HCO3 ABG Base Excess ABG Hemoglobin Oxyhemoglobin Sodium Potassium Chloride Carbon Dioxide BUN Creatinine Glucose POC Glucose 131 H 183 H 236 H Lactic Acid Calcium Phosphorus Magnesium Direct Bilirubin AST ALT Alkaline Phosphatase Lactate Dehydrogenase Troponin T C-Reactive Protein Total Protein Albumin Prealbumin Triglycerides Cholesterol LDL Cholesterol Direct HDL Cholesterol Urine pH Urine WBC (Auto) Urine Creatinine Urine Total Protein Fluid Total Protein Vancomycin Trough Rheumatoid Factor Complement C4 Miscellaneous Test Crossmatch 09/20/16 09/21/16 09/21/16 23:51 03:30 04:44 WBC RBC Hgb Hct MCV MCH MCHC RDW Plt Count Lymph % (Auto) [place] % (Auto) Lymph # [place] # Baso # Seg Neutrophils % Seg Neuts % (Manual) Lymphocytes % (Manual) Monocytes % (Manual) Eosinophils % (Manual) Basophils % (Manual) Nucleated RBC % Seg Neutrophils # Seg Neutrophils # Man Lymphocytes # (Manual) Monocytes # (Manual) Eosinophils # (Manual) Basophils # (Manual) PT INR Fibrinogen dRVVT Confirm Interp Factor V Activity POC ABG pH POC ABG pCO2 POC ABG pO2 ABG pO2 ABG HCO3 ABG Base Excess ABG Hemoglobin Oxyhemoglobin Sodium Potassium Chloride Carbon Dioxide BUN Creatinine Glucose POC Glucose 114 H 141 H Lactic Acid Calcium Phosphorus Magnesium 2.70 H Direct Bilirubin AST ALT Alkaline Phosphatase Lactate Dehydrogenase Troponin T C-Reactive Protein Total Protein Albumin Prealbumin Triglycerides Cholesterol LDL Cholesterol Direct HDL Cholesterol Urine pH Urine WBC (Auto) Urine Creatinine Urine Total Protein Fluid Total Protein Vancomycin Trough Rheumatoid Factor Complement C4 Miscellaneous Test Crossmatch 09/21/16 09/21/16 09/21/16 07:45 07:45 10:01 WBC 13.8 H RBC 2.94 L Hgb 7.5 L Hct 23.5 L MCV MCH 26 L MCHC RDW 21.2 H Plt Count Lymph % (Auto) 6.9 L [place] % (Auto) 9.4 H Lymph # 0.9 L [place] # 1.3 H Baso # Seg Neutrophils % 83.2 H Seg Neuts % (Manual) Lymphocytes % (Manual) Monocytes % (Manual) Eosinophils % (Manual) Basophils % (Manual) Nucleated RBC % Seg Neutrophils # 11.5 H Seg Neutrophils # Man Lymphocytes # (Manual) Monocytes # (Manual) Eosinophils # (Manual) Basophils # (Manual) PT INR Fibrinogen dRVVT Confirm Interp Factor V Activity POC ABG pH 7.308 L POC ABG pCO2 31.9 L POC ABG pO2 148 H ABG pO2 ABG HCO3 ABG Base Excess ABG Hemoglobin Oxyhemoglobin Sodium 147 H Potassium Chloride 114.2 H Carbon Dioxide 15 L BUN 120 H Creatinine 3.9 H Glucose 156 H POC Glucose Lactic Acid Calcium 8.2 L Phosphorus Magnesium Direct Bilirubin AST ALT Alkaline Phosphatase Lactate Dehydrogenase Troponin T C-Reactive Protein Total Protein Albumin Prealbumin Triglycerides Cholesterol LDL Cholesterol Direct HDL Cholesterol Urine pH Urine WBC (Auto) Urine Creatinine Urine Total Protein Fluid Total Protein Vancomycin Trough Rheumatoid Factor Complement C4 Miscellaneous Test Crossmatch 09/21/16 09/21/16 09/21/16 12:00 12:03 13:00 WBC RBC Hgb Hct MCV MCH MCHC RDW Plt Count Lymph % (Auto) [place] % (Auto) Lymph # [place] # Baso # Seg Neutrophils % Seg Neuts % (Manual) Lymphocytes % (Manual) Monocytes % (Manual) Eosinophils % (Manual) Basophils % (Manual) Nucleated RBC % Seg Neutrophils # Seg Neutrophils # Man Lymphocytes # (Manual) Monocytes # (Manual) Eosinophils # (Manual) Basophils # (Manual) PT INR Fibrinogen dRVVT Confirm Interp Factor V Activity POC ABG pH POC ABG pCO2 POC ABG pO2 ABG pO2 ABG HCO3 ABG Base Excess ABG Hemoglobin Oxyhemoglobin Sodium Potassium Chloride Carbon Dioxide BUN Creatinine Glucose POC Glucose 163 H Lactic Acid Calcium Phosphorus Magnesium Direct Bilirubin AST ALT Alkaline Phosphatase Lactate Dehydrogenase Troponin T C-Reactive Protein Total Protein Albumin Prealbumin Triglycerides Cholesterol LDL Cholesterol Direct HDL Cholesterol Urine pH Urine WBC (Auto) Urine Creatinine 54.8 H Urine Total Protein Fluid Total Protein Vancomycin Trough 2.3 L Rheumatoid Factor Complement C4 Miscellaneous Test Crossmatch 09/21/16 09/21/16 09/22/16 16:51 23:17 06:27 WBC RBC Hgb Hct MCV MCH MCHC RDW Plt Count Lymph % (Auto) [place] % (Auto) Lymph # [place] # Baso # Seg Neutrophils % Seg Neuts % (Manual) Lymphocytes % (Manual) Monocytes % (Manual) Eosinophils % (Manual) Basophils % (Manual) Nucleated RBC % Seg Neutrophils # Seg Neutrophils # Man Lymphocytes # (Manual) Monocytes # (Manual) Eosinophils # (Manual) Basophils # (Manual) PT INR Fibrinogen dRVVT Confirm Interp Factor V Activity POC ABG pH POC ABG pCO2 POC ABG pO2 ABG pO2 ABG HCO3 ABG Base Excess ABG Hemoglobin Oxyhemoglobin Sodium Potassium Chloride Carbon Dioxide BUN Creatinine Glucose POC Glucose 206 H 114 H 115 H Lactic Acid Calcium Phosphorus Magnesium Direct Bilirubin AST ALT Alkaline Phosphatase Lactate Dehydrogenase Troponin T C-Reactive Protein Total Protein Albumin Prealbumin Triglycerides Cholesterol LDL Cholesterol Direct HDL Cholesterol Urine pH Urine WBC (Auto) Urine Creatinine Urine Total Protein Fluid Total Protein Vancomycin Trough Rheumatoid Factor Complement C4 Miscellaneous Test Crossmatch 09/22/16 09/22/16 09/22/16 07:50 07:50 12:00 WBC 17.8 H RBC 3.04 L Hgb 8.0 L Hct 24.7 L MCV MCH 26 L MCHC RDW 21.6 H Plt Count Lymph % (Auto) [place] % (Auto) Lymph # [place] # Baso # Seg Neutrophils % Seg Neuts % (Manual) Lymphocytes % (Manual) Monocytes % (Manual) Eosinophils % (Manual) Basophils % (Manual) Nucleated RBC % Seg Neutrophils # Seg Neutrophils # Man Lymphocytes # (Manual) Monocytes # (Manual) Eosinophils # (Manual) Basophils # (Manual) PT INR Fibrinogen dRVVT Confirm Interp Factor V Activity POC ABG pH POC ABG pCO2 POC ABG pO2 ABG pO2 ABG HCO3 ABG Base Excess ABG Hemoglobin Oxyhemoglobin Sodium 150 H Potassium Chloride 118.2 H Carbon Dioxide 14 L BUN 111 H Creatinine 3.7 H Glucose 157 H POC Glucose 183 H Lactic Acid Calcium Phosphorus Magnesium Direct Bilirubin AST ALT Alkaline Phosphatase Lactate Dehydrogenase Troponin T C-Reactive Protein Total Protein Albumin Prealbumin Triglycerides Cholesterol LDL Cholesterol Direct HDL Cholesterol Urine pH Urine WBC (Auto) Urine Creatinine Urine Total Protein Fluid Total Protein Vancomycin Trough Rheumatoid Factor Complement C4 Miscellaneous Test Crossmatch 09/22/16 09/22/16 09/23/16 17:29 23:10 05:00 WBC 19.2 H RBC 3.13 L Hgb 8.0 L Hct 25.2 L MCV MCH 26 L MCHC RDW 22.1 H Plt Count Lymph % (Auto) [place] % (Auto) Lymph # [place] # Baso # Seg Neutrophils % Seg Neuts % (Manual) 92.0 H Lymphocytes % (Manual) 3.0 L Monocytes % (Manual) Eosinophils % (Manual) Basophils % (Manual) Nucleated RBC % Seg Neutrophils # Seg Neutrophils # Man 17.7 H Lymphocytes # (Manual) 0.6 L Monocytes # (Manual) Eosinophils # (Manual) Basophils # (Manual) PT INR Fibrinogen dRVVT Confirm Interp Factor V Activity POC ABG pH POC ABG pCO2 POC ABG pO2 ABG pO2 ABG HCO3 ABG Base Excess ABG Hemoglobin Oxyhemoglobin Sodium Potassium Chloride Carbon Dioxide BUN Creatinine Glucose POC Glucose 197 H 169 H Lactic Acid Calcium Phosphorus Magnesium Direct Bilirubin AST ALT Alkaline Phosphatase Lactate Dehydrogenase Troponin T C-Reactive Protein Total Protein Albumin Prealbumin Triglycerides Cholesterol LDL Cholesterol Direct HDL Cholesterol Urine pH Urine WBC (Auto) Urine Creatinine Urine Total Protein Fluid Total Protein Vancomycin Trough Rheumatoid Factor Complement C4 Miscellaneous Test Crossmatch 09/23/16 09/23/16 09/23/16 05:00 05:00 05:10 WBC RBC Hgb Hct MCV MCH MCHC RDW Plt Count Lymph % (Auto) [place] % (Auto) Lymph # [place] # Baso # Seg Neutrophils % Seg Neuts % (Manual) Lymphocytes % (Manual) Monocytes % (Manual) Eosinophils % (Manual) Basophils % (Manual) Nucleated RBC % Seg Neutrophils # Seg Neutrophils # Man Lymphocytes # (Manual) Monocytes # (Manual) Eosinophils # (Manual) Basophils # (Manual) PT INR Fibrinogen dRVVT Confirm Interp Factor V Activity POC ABG pH POC ABG pCO2 POC ABG pO2 ABG pO2 ABG HCO3 ABG Base Excess ABG Hemoglobin Oxyhemoglobin Sodium 147 H Potassium 3.2 L Chloride 115.7 H Carbon Dioxide 13 L BUN 111 H Creatinine 3.8 H Glucose 194 H POC Glucose 188 H Lactic Acid Calcium 7.3 L D Phosphorus Magnesium Direct Bilirubin AST ALT Alkaline Phosphatase Lactate Dehydrogenase Troponin T C-Reactive Protein 3.20 H Total Protein Albumin Prealbumin Triglycerides Cholesterol LDL Cholesterol Direct HDL Cholesterol Urine pH Urine WBC (Auto) Urine Creatinine Urine Total Protein Fluid Total Protein Vancomycin Trough Rheumatoid Factor Complement C4 Miscellaneous Test Crossmatch 09/23/16 09/23/16 09/23/16 11:37 12:29 18:01 WBC RBC Hgb Hct MCV MCH MCHC RDW Plt Count Lymph % (Auto) [place] % (Auto) Lymph # [place] # Baso # Seg Neutrophils % Seg Neuts % (Manual) Lymphocytes % (Manual) Monocytes % (Manual) Eosinophils % (Manual) Basophils % (Manual) Nucleated RBC % Seg Neutrophils # Seg Neutrophils # Man Lymphocytes # (Manual) Monocytes # (Manual) Eosinophils # (Manual) Basophils # (Manual) PT INR Fibrinogen dRVVT Confirm Interp Factor V Activity POC ABG pH POC ABG pCO2 18.9 L POC ABG pO2 143 H ABG pO2 ABG HCO3 ABG Base Excess ABG Hemoglobin Oxyhemoglobin Sodium Potassium Chloride Carbon Dioxide BUN Creatinine Glucose POC Glucose 153 H 108 H Lactic Acid Calcium Phosphorus Magnesium Direct Bilirubin AST ALT Alkaline Phosphatase Lactate Dehydrogenase Troponin T C-Reactive Protein Total Protein Albumin Prealbumin Triglycerides Cholesterol LDL Cholesterol Direct HDL Cholesterol Urine pH Urine WBC (Auto) Urine Creatinine Urine Total Protein Fluid Total Protein Vancomycin Trough Rheumatoid Factor Complement C4 Miscellaneous Test Crossmatch 09/23/16 09/23/16 09/24/16 21:19 23:43 05:16 WBC RBC Hgb Hct MCV MCH MCHC RDW Plt Count Lymph % (Auto) [place] % (Auto) Lymph # [place] # Baso # Seg Neutrophils % Seg Neuts % (Manual) Lymphocytes % (Manual) Monocytes % (Manual) Eosinophils % (Manual) Basophils % (Manual) Nucleated RBC % Seg Neutrophils # Seg Neutrophils # Man Lymphocytes # (Manual) Monocytes # (Manual) Eosinophils # (Manual) Basophils # (Manual) PT INR Fibrinogen dRVVT Confirm Interp Factor V Activity POC ABG pH POC ABG pCO2 17.3 L POC ABG pO2 112 H ABG pO2 ABG HCO3 ABG Base Excess ABG Hemoglobin Oxyhemoglobin Sodium Potassium Chloride Carbon Dioxide BUN Creatinine Glucose POC Glucose 143 H 164 H Lactic Acid Calcium Phosphorus Magnesium Direct Bilirubin AST ALT Alkaline Phosphatase Lactate Dehydrogenase Troponin T C-Reactive Protein Total Protein Albumin Prealbumin Triglycerides Cholesterol LDL Cholesterol Direct HDL Cholesterol Urine pH Urine WBC (Auto) Urine Creatinine Urine Total Protein Fluid Total Protein Vancomycin Trough Rheumatoid Factor Complement C4 Miscellaneous Test Crossmatch 09/24/16 09/24/16 09/24/16 05:21 11:58 17:06 WBC RBC Hgb Hct MCV MCH MCHC RDW Plt Count Lymph % (Auto) [place] % (Auto) Lymph # [place] # Baso # Seg Neutrophils % Seg Neuts % (Manual) Lymphocytes % (Manual) Monocytes % (Manual) Eosinophils % (Manual) Basophils % (Manual) Nucleated RBC % Seg Neutrophils # Seg Neutrophils # Man Lymphocytes # (Manual) Monocytes # (Manual) Eosinophils # (Manual) Basophils # (Manual) PT INR Fibrinogen dRVVT Confirm Interp Factor V Activity POC ABG pH POC ABG pCO2 POC ABG pO2 ABG pO2 ABG HCO3 ABG Base Excess ABG Hemoglobin Oxyhemoglobin Sodium Potassium Chloride Carbon Dioxide 10 L BUN 103 H Creatinine 4.3 H Glucose 163 H POC Glucose 173 H 167 H Lactic Acid Calcium 6.5 L Phosphorus Magnesium Direct Bilirubin AST ALT Alkaline Phosphatase Lactate Dehydrogenase Troponin T C-Reactive Protein Total Protein Albumin Prealbumin Triglycerides Cholesterol LDL Cholesterol Direct HDL Cholesterol Urine pH Urine WBC (Auto) Urine Creatinine Urine Total Protein Fluid Total Protein Vancomycin Trough Rheumatoid Factor Complement C4 Miscellaneous Test Crossmatch 09/24/16 09/24/16 09/24/16 20:15 21:02 23:48 WBC RBC Hgb Hct MCV MCH MCHC RDW Plt Count Lymph % (Auto) [place] % (Auto) Lymph # [place] # Baso # Seg Neutrophils % Seg Neuts % (Manual) Lymphocytes % (Manual) Monocytes % (Manual) Eosinophils % (Manual) Basophils % (Manual) Nucleated RBC % Seg Neutrophils # Seg Neutrophils # Man Lymphocytes # (Manual) Monocytes # (Manual) Eosinophils # (Manual) Basophils # (Manual) PT INR Fibrinogen dRVVT Confirm Interp Factor V Activity POC ABG pH 7.288 L POC ABG pCO2 30.2 L 21.5 L POC ABG pO2 32 L 39 L ABG pO2 ABG HCO3 ABG Base Excess ABG Hemoglobin Oxyhemoglobin Sodium Potassium Chloride Carbon Dioxide BUN Creatinine Glucose POC Glucose 109 H Lactic Acid Calcium Phosphorus Magnesium Direct Bilirubin AST ALT Alkaline Phosphatase Lactate Dehydrogenase Troponin T C-Reactive Protein Total Protein Albumin Prealbumin Triglycerides Cholesterol LDL Cholesterol Direct HDL Cholesterol Urine pH Urine WBC (Auto) Urine Creatinine Urine Total Protein Fluid Total Protein Vancomycin Trough Rheumatoid Factor Complement C4 Miscellaneous Test Crossmatch 09/25/16 09/25/16 09/25/16 04:20 04:20 04:20 WBC RBC 2.58 L Hgb 7.0 L Hct 21.0 L MCV MCH 27 L MCHC RDW 23.8 H Plt Count Lymph % (Auto) [place] % (Auto) Lymph # [place] # Baso # Seg Neutrophils % Seg Neuts % (Manual) Lymphocytes % (Manual) 12.0 L Monocytes % (Manual) Eosinophils % (Manual) 7.0 H Basophils % (Manual) 2.0 H Nucleated RBC % Seg Neutrophils # Seg Neutrophils # Man Lymphocytes # (Manual) 0.9 L Monocytes # (Manual) Eosinophils # (Manual) 0.5 H Basophils # (Manual) PT INR Fibrinogen dRVVT Confirm Interp Factor V Activity POC ABG pH POC ABG pCO2 POC ABG pO2 ABG pO2 ABG HCO3 ABG Base Excess ABG Hemoglobin Oxyhemoglobin Sodium Potassium Chloride Carbon Dioxide 15 L BUN 72 H Creatinine 3.8 H Glucose POC Glucose Lactic Acid Calcium 6.0 L Phosphorus 4.60 H Magnesium 1.60 L Direct Bilirubin AST ALT Alkaline Phosphatase Lactate Dehydrogenase Troponin T C-Reactive Protein Total Protein Albumin Prealbumin Triglycerides Cholesterol LDL Cholesterol Direct HDL Cholesterol Urine pH Urine WBC (Auto) Urine Creatinine Urine Total Protein Fluid Total Protein Vancomycin Trough Rheumatoid Factor Complement C4 Miscellaneous Test Crossmatch 09/25/16 09/25/16 09/25/16 04:57 08:02 10:30 WBC RBC Hgb Hct MCV MCH MCHC RDW Plt Count Lymph % (Auto) [place] % (Auto) Lymph # [place] # Baso # Seg Neutrophils % Seg Neuts % (Manual) Lymphocytes % (Manual) Monocytes % (Manual) Eosinophils % (Manual) Basophils % (Manual) Nucleated RBC % Seg Neutrophils # Seg Neutrophils # Man Lymphocytes # (Manual) Monocytes # (Manual) Eosinophils # (Manual) Basophils # (Manual) PT INR Fibrinogen dRVVT Confirm Interp Factor V Activity POC ABG pH POC ABG pCO2 24.7 L POC ABG pO2 152 H ABG pO2 ABG HCO3 ABG Base Excess ABG Hemoglobin Oxyhemoglobin Sodium Potassium Chloride Carbon Dioxide BUN Creatinine Glucose POC Glucose 113 H Lactic Acid Calcium Phosphorus Magnesium Direct Bilirubin AST ALT Alkaline Phosphatase Lactate Dehydrogenase Troponin T C-Reactive Protein Total Protein Albumin Prealbumin Triglycerides Cholesterol LDL Cholesterol Direct HDL Cholesterol Urine pH Urine WBC (Auto) Urine Creatinine Urine Total Protein Fluid Total Protein Vancomycin Trough Rheumatoid Factor Complement C4 Miscellaneous Test Crossmatch See Detail 09/25/16 09/25/16 09/25/16 12:05 17:44 23:47 WBC RBC Hgb Hct MCV MCH MCHC RDW Plt Count Lymph % (Auto) [place] % (Auto) Lymph # [place] # Baso # Seg Neutrophils % Seg Neuts % (Manual) Lymphocytes % (Manual) Monocytes % (Manual) Eosinophils % (Manual) Basophils % (Manual) Nucleated RBC % Seg Neutrophils # Seg Neutrophils # Man Lymphocytes # (Manual) Monocytes # (Manual) Eosinophils # (Manual) Basophils # (Manual) PT INR Fibrinogen dRVVT Confirm Interp Factor V Activity POC ABG pH POC ABG pCO2 POC ABG pO2 ABG pO2 ABG HCO3 ABG Base Excess ABG Hemoglobin Oxyhemoglobin Sodium Potassium Chloride Carbon Dioxide BUN Creatinine Glucose POC Glucose 117 H 119 H 150 H Lactic Acid Calcium Phosphorus Magnesium Direct Bilirubin AST ALT Alkaline Phosphatase Lactate Dehydrogenase Troponin T C-Reactive Protein Total Protein Albumin Prealbumin Triglycerides Cholesterol LDL Cholesterol Direct HDL Cholesterol Urine pH Urine WBC (Auto) Urine Creatinine Urine Total Protein Fluid Total Protein Vancomycin Trough Rheumatoid Factor Complement C4 Miscellaneous Test Crossmatch 09/26/16 09/26/16 09/26/16 04:25 04:25 04:25 WBC RBC 2.65 L Hgb 7.4 L Hct 21.6 L MCV MCH MCHC RDW 22.5 H Plt Count Lymph % (Auto) [place] % (Auto) Lymph # [place] # Baso # Seg Neutrophils % Seg Neuts % (Manual) Lymphocytes % (Manual) 6.0 L Monocytes % (Manual) Eosinophils % (Manual) 11.0 H Basophils % (Manual) Nucleated RBC % Seg Neutrophils # Seg Neutrophils # Man Lymphocytes # (Manual) 0.4 L Monocytes # (Manual) Eosinophils # (Manual) 0.6 H Basophils # (Manual) PT INR Fibrinogen dRVVT Confirm Interp Factor V Activity POC ABG pH POC ABG pCO2 POC ABG pO2 ABG pO2 ABG HCO3 ABG Base Excess ABG Hemoglobin Oxyhemoglobin Sodium Potassium Chloride 97.0 L Carbon Dioxide 19 L BUN 43 H Creatinine 2.6 H Glucose 130 H POC Glucose Lactic Acid 4.40 H* Calcium 6.7 L Phosphorus Magnesium Direct Bilirubin AST ALT Alkaline Phosphatase Lactate Dehydrogenase Troponin T C-Reactive Protein Total Protein Albumin Prealbumin Triglycerides Cholesterol LDL Cholesterol Direct HDL Cholesterol Urine pH Urine WBC (Auto) Urine Creatinine Urine Total Protein Fluid Total Protein Vancomycin Trough Rheumatoid Factor Complement C4 Miscellaneous Test Crossmatch 09/26/16 09/26/16 09/26/16 05:20 11:44 12:12 WBC RBC Hgb Hct MCV MCH MCHC RDW Plt Count Lymph % (Auto) [place] % (Auto) Lymph # [place] # Baso # Seg Neutrophils % Seg Neuts % (Manual) Lymphocytes % (Manual) Monocytes % (Manual) Eosinophils % (Manual) Basophils % (Manual) Nucleated RBC % Seg Neutrophils # Seg Neutrophils # Man Lymphocytes # (Manual) Monocytes # (Manual) Eosinophils # (Manual) Basophils # (Manual) PT INR Fibrinogen dRVVT Confirm Interp Factor V Activity POC ABG pH POC ABG pCO2 27.0 L POC ABG pO2 69 L ABG pO2 ABG HCO3 ABG Base Excess ABG Hemoglobin Oxyhemoglobin Sodium Potassium Chloride Carbon Dioxide BUN Creatinine Glucose POC Glucose 121 H 128 H Lactic Acid Calcium Phosphorus Magnesium Direct Bilirubin AST ALT Alkaline Phosphatase Lactate Dehydrogenase Troponin T C-Reactive Protein Total Protein Albumin Prealbumin Triglycerides Cholesterol LDL Cholesterol Direct HDL Cholesterol Urine pH Urine WBC (Auto) Urine Creatinine Urine Total Protein Fluid Total Protein Vancomycin Trough Rheumatoid Factor Complement C4 Miscellaneous Test Crossmatch 09/26/16 09/26/16 09/27/16 18:31 23:40 08:20 WBC RBC Hgb Hct MCV MCH MCHC RDW Plt Count Lymph % (Auto) [place] % (Auto) Lymph # [place] # Baso # Seg Neutrophils % Seg Neuts % (Manual) Lymphocytes % (Manual) Monocytes % (Manual) Eosinophils % (Manual) Basophils % (Manual) Nucleated RBC % Seg Neutrophils # Seg Neutrophils # Man Lymphocytes # (Manual) Monocytes # (Manual) Eosinophils # (Manual) Basophils # (Manual) PT INR Fibrinogen dRVVT Confirm Interp Factor V Activity POC ABG pH POC ABG pCO2 POC ABG pO2 ABG pO2 ABG HCO3 ABG Base Excess ABG Hemoglobin Oxyhemoglobin Sodium Potassium Chloride Carbon Dioxide BUN Creatinine Glucose POC Glucose 120 H 133 H Lactic Acid 4.10 H* Calcium Phosphorus Magnesium Direct Bilirubin AST ALT Alkaline Phosphatase Lactate Dehydrogenase Troponin T C-Reactive Protein Total Protein Albumin Prealbumin Triglycerides Cholesterol LDL Cholesterol Direct HDL Cholesterol Urine pH Urine WBC (Auto) Urine Creatinine Urine Total Protein Fluid Total Protein Vancomycin Trough Rheumatoid Factor Complement C4 Miscellaneous Test Crossmatch 09/27/16 09/27/16 09/27/16 11:23 15:00 18:15 WBC RBC Hgb Hct MCV MCH MCHC RDW Plt Count Lymph % (Auto) [place] % (Auto) Lymph # [place] # Baso # Seg Neutrophils % Seg Neuts % (Manual) Lymphocytes % (Manual) Monocytes % (Manual) Eosinophils % (Manual) Basophils % (Manual) Nucleated RBC % Seg Neutrophils # Seg Neutrophils # Man Lymphocytes # (Manual) Monocytes # (Manual) Eosinophils # (Manual) Basophils # (Manual) PT INR Fibrinogen dRVVT Confirm Interp Factor V Activity POC ABG pH 7.459 H POC ABG pCO2 27.1 L POC ABG pO2 140 H ABG pO2 ABG HCO3 ABG Base Excess ABG Hemoglobin Oxyhemoglobin Sodium Potassium Chloride Carbon Dioxide BUN Creatinine Glucose POC Glucose 114 H 127 H Lactic Acid Calcium Phosphorus Magnesium Direct Bilirubin AST ALT Alkaline Phosphatase Lactate Dehydrogenase Troponin T C-Reactive Protein Total Protein Albumin Prealbumin Triglycerides Cholesterol LDL Cholesterol Direct HDL Cholesterol Urine pH Urine WBC (Auto) Urine Creatinine Urine Total Protein Fluid Total Protein Vancomycin Trough Rheumatoid Factor Complement C4 Miscellaneous Test Crossmatch 09/27/16 09/27/16 09/28/16 Unknown Unknown 03:45 WBC RBC 2.49 L Hgb 6.8 L Hct 20.7 L MCV MCH 27 L MCHC RDW 22.1 H Plt Count Lymph % (Auto) [place] % (Auto) Lymph # [place] # Baso # Seg Neutrophils % Seg Neuts % (Manual) 32.0 L Lymphocytes % (Manual) 12.0 L Monocytes % (Manual) 11.0 H Eosinophils % (Manual) 10.0 H Basophils % (Manual) Nucleated RBC % Seg Neutrophils # Seg Neutrophils # Man Lymphocytes # (Manual) 1.0 L Monocytes # (Manual) 0.9 H Eosinophils # (Manual) 0.8 H Basophils # (Manual) PT INR Fibrinogen dRVVT Confirm Interp Factor V Activity POC ABG pH POC ABG pCO2 POC ABG pO2 ABG pO2 ABG HCO3 ABG Base Excess ABG Hemoglobin Oxyhemoglobin Sodium 135 L 135 L Potassium 3.5 L Chloride 93.6 L 94.4 L Carbon Dioxide 17 L 21 L BUN 45 H 28 H Creatinine 3.3 H 2.5 H Glucose 106 H POC Glucose Lactic Acid Calcium 7.3 L 7.1 L Phosphorus Magnesium Direct Bilirubin AST ALT Alkaline Phosphatase Lactate Dehydrogenase Troponin T C-Reactive Protein Total Protein Albumin Prealbumin Triglycerides Cholesterol LDL Cholesterol Direct HDL Cholesterol Urine pH Urine WBC (Auto) Urine Creatinine Urine Total Protein Fluid Total Protein Vancomycin Trough Rheumatoid Factor Complement C4 Miscellaneous Test Crossmatch 09/28/16 09/28/16 09/28/16 03:45 07:25 11:58 WBC 13.3 H RBC 3.01 L Hgb 8.4 L Hct 25.0 L MCV MCH MCHC RDW 20.5 H Plt Count 128 L Lymph % (Auto) [place] % (Auto) Lymph # [place] # Baso # Seg Neutrophils % Seg Neuts % (Manual) Lymphocytes % (Manual) 7.0 L Monocytes % (Manual) Eosinophils % (Manual) 6.0 H Basophils % (Manual) Nucleated RBC % Seg Neutrophils # Seg Neutrophils # Man Lymphocytes # (Manual) 0.9 L Monocytes # (Manual) Eosinophils # (Manual) 0.8 H Basophils # (Manual) PT INR Fibrinogen dRVVT Confirm Interp Factor V Activity POC ABG pH POC ABG pCO2 POC ABG pO2 ABG pO2 ABG HCO3 ABG Base Excess ABG Hemoglobin Oxyhemoglobin Sodium Potassium Chloride Carbon Dioxide BUN Creatinine Glucose POC Glucose 121 H Lactic Acid 4.50 H* Calcium Phosphorus Magnesium Direct Bilirubin AST ALT Alkaline Phosphatase Lactate Dehydrogenase Troponin T C-Reactive Protein Total Protein Albumin Prealbumin Triglycerides Cholesterol LDL Cholesterol Direct HDL Cholesterol Urine pH Urine WBC (Auto) Urine Creatinine Urine Total Protein Fluid Total Protein Vancomycin Trough Rheumatoid Factor Complement C4 Miscellaneous Test Crossmatch 09/29/16 09/29/16 09/29/16 06:45 06:45 06:45 WBC 14.9 H RBC 2.74 L Hgb 7.6 L Hct 23.2 L MCV MCH MCHC RDW 20.5 H Plt Count 81 L Lymph % (Auto) [place] % (Auto) Lymph # [place] # Baso # Seg Neutrophils % Seg Neuts % (Manual) 81.0 H Lymphocytes % (Manual) 4.0 L Monocytes % (Manual) Eosinophils % (Manual) Basophils % (Manual) Nucleated RBC % Seg Neutrophils # Seg Neutrophils # Man 12.1 H Lymphocytes # (Manual) 0.6 L Monocytes # (Manual) Eosinophils # (Manual) Basophils # (Manual) PT INR Fibrinogen dRVVT Confirm Interp Factor V Activity POC ABG pH POC ABG pCO2 POC ABG pO2 ABG pO2 ABG HCO3 ABG Base Excess ABG Hemoglobin Oxyhemoglobin Sodium 133 L Potassium 3.4 L Chloride 92.5 L Carbon Dioxide 21 L BUN 33 H Creatinine 3.0 H Glucose POC Glucose Lactic Acid Calcium 6.6 L Phosphorus Magnesium 1.40 L Direct Bilirubin 0.9 H AST ALT Alkaline Phosphatase Lactate Dehydrogenase Troponin T C-Reactive Protein Total Protein 4.3 L Albumin 1.3 L Prealbumin Triglycerides Cholesterol LDL Cholesterol Direct HDL Cholesterol Urine pH Urine WBC (Auto) Urine Creatinine Urine Total Protein Fluid Total Protein Vancomycin Trough Rheumatoid Factor Complement C4 Miscellaneous Test Crossmatch 09/29/16 09/29/16 09/30/16 17:52 20:12 00:07 WBC RBC Hgb Hct MCV MCH MCHC RDW Plt Count Lymph % (Auto) [place] % (Auto) Lymph # [place] # Baso # Seg Neutrophils % Seg Neuts % (Manual) Lymphocytes % (Manual) Monocytes % (Manual) Eosinophils % (Manual) Basophils % (Manual) Nucleated RBC % Seg Neutrophils # Seg Neutrophils # Man Lymphocytes # (Manual) Monocytes # (Manual) Eosinophils # (Manual) Basophils # (Manual) PT INR Fibrinogen dRVVT Confirm Interp Factor V Activity POC ABG pH POC ABG pCO2 POC ABG pO2 ABG pO2 ABG HCO3 ABG Base Excess ABG Hemoglobin Oxyhemoglobin Sodium Potassium Chloride Carbon Dioxide BUN Creatinine Glucose POC Glucose 50 L 51 L Lactic Acid Calcium Phosphorus Magnesium Direct Bilirubin AST ALT Alkaline Phosphatase Lactate Dehydrogenase Troponin T 0.204 H* C-Reactive Protein Total Protein Albumin Prealbumin Triglycerides Cholesterol 31 L LDL Cholesterol Direct 4 L HDL Cholesterol 3 L Urine pH Urine WBC (Auto) Urine Creatinine Urine Total Protein Fluid Total Protein Vancomycin Trough Rheumatoid Factor Complement C4 Miscellaneous Test Crossmatch 09/30/16 09/30/16 09/30/16 01:30 05:15 06:10 WBC RBC Hgb Hct MCV MCH MCHC RDW Plt Count Lymph % (Auto) [place] % (Auto) Lymph # [place] # Baso # Seg Neutrophils % Seg Neuts % (Manual) Lymphocytes % (Manual) Monocytes % (Manual) Eosinophils % (Manual) Basophils % (Manual) Nucleated RBC % Seg Neutrophils # Seg Neutrophils # Man Lymphocytes # (Manual) Monocytes # (Manual) Eosinophils # (Manual) Basophils # (Manual) PT INR Fibrinogen dRVVT Confirm Interp Factor V Activity POC ABG pH POC ABG pCO2 POC ABG pO2 ABG pO2 ABG HCO3 ABG Base Excess ABG Hemoglobin Oxyhemoglobin Sodium 133 L Potassium 3.2 L Chloride 93.2 L Carbon Dioxide 19 L BUN 36 H Creatinine 3.2 H Glucose 104 H POC Glucose 167 H 146 H Lactic Acid Calcium 6.4 L Phosphorus Magnesium 1.60 L Direct Bilirubin AST ALT Alkaline Phosphatase Lactate Dehydrogenase Troponin T C-Reactive Protein Total Protein Albumin Prealbumin Triglycerides Cholesterol LDL Cholesterol Direct HDL Cholesterol Urine pH Urine WBC (Auto) Urine Creatinine Urine Total Protein Fluid Total Protein Vancomycin Trough Rheumatoid Factor Complement C4 Miscellaneous Test Crossmatch 09/30/16 09/30/16 09/30/16 11:26 13:39 18:38 WBC RBC Hgb Hct MCV MCH MCHC RDW Plt Count Lymph % (Auto) [place] % (Auto) Lymph # [place] # Baso # Seg Neutrophils % Seg Neuts % (Manual) Lymphocytes % (Manual) Monocytes % (Manual) Eosinophils % (Manual) Basophils % (Manual) Nucleated RBC % Seg Neutrophils # Seg Neutrophils # Man Lymphocytes # (Manual) Monocytes # (Manual) Eosinophils # (Manual) Basophils # (Manual) PT INR Fibrinogen dRVVT Confirm Interp Factor V Activity POC ABG pH 7.479 H POC ABG pCO2 29.8 L POC ABG pO2 117 H ABG pO2 ABG HCO3 ABG Base Excess ABG Hemoglobin Oxyhemoglobin Sodium Potassium Chloride Carbon Dioxide BUN Creatinine Glucose POC Glucose 140 H 122 H Lactic Acid Calcium Phosphorus Magnesium Direct Bilirubin AST ALT Alkaline Phosphatase Lactate Dehydrogenase Troponin T C-Reactive Protein Total Protein Albumin Prealbumin Triglycerides Cholesterol LDL Cholesterol Direct HDL Cholesterol Urine pH Urine WBC (Auto) Urine Creatinine Urine Total Protein Fluid Total Protein Vancomycin Trough Rheumatoid Factor Complement C4 Miscellaneous Test Crossmatch 10/01/16 10/01/16 10/01/16 06:00 06:00 12:37 WBC 12.6 H RBC 2.75 L Hgb 7.3 L Hct 23.3 L MCV MCH 27 L MCHC RDW 20.6 H Plt Count 72 L Lymph % (Auto) [place] % (Auto) Lymph # [place] # Baso # Seg Neutrophils % Seg Neuts % (Manual) 31.0 L Lymphocytes % (Manual) 8.0 L Monocytes % (Manual) Eosinophils % (Manual) Basophils % (Manual) Nucleated RBC % 3.0 H Seg Neutrophils # Seg Neutrophils # Man Lymphocytes # (Manual) 1.0 L Monocytes # (Manual) Eosinophils # (Manual) Basophils # (Manual) PT INR Fibrinogen dRVVT Confirm Interp Factor V Activity POC ABG pH POC ABG pCO2 POC ABG pO2 ABG pO2 ABG HCO3 ABG Base Excess ABG Hemoglobin Oxyhemoglobin Sodium 127 L Potassium Chloride 86.8 L Carbon Dioxide 20 L BUN 42 H Creatinine 3.5 H Glucose POC Glucose 65 L Lactic Acid Calcium 7.0 L Phosphorus Magnesium Direct Bilirubin AST ALT Alkaline Phosphatase Lactate Dehydrogenase Troponin T C-Reactive Protein Total Protein Albumin Prealbumin Triglycerides Cholesterol LDL Cholesterol Direct HDL Cholesterol Urine pH Urine WBC (Auto) Urine Creatinine Urine Total Protein Fluid Total Protein Vancomycin Trough Rheumatoid Factor Complement C4 Miscellaneous Test Crossmatch 10/01/16 10/01/16 10/02/16 17:39 23:32 00:59 WBC RBC Hgb Hct MCV MCH MCHC RDW Plt Count Lymph % (Auto) [place] % (Auto) Lymph # [place] # Baso # Seg Neutrophils % Seg Neuts % (Manual) Lymphocytes % (Manual) Monocytes % (Manual) Eosinophils % (Manual) Basophils % (Manual) Nucleated RBC % Seg Neutrophils # Seg Neutrophils # Man Lymphocytes # (Manual) Monocytes # (Manual) Eosinophils # (Manual) Basophils # (Manual) PT INR Fibrinogen dRVVT Confirm Interp Factor V Activity POC ABG pH POC ABG pCO2 POC ABG pO2 ABG pO2 ABG HCO3 ABG Base Excess ABG Hemoglobin Oxyhemoglobin Sodium Potassium Chloride Carbon Dioxide BUN Creatinine Glucose POC Glucose 107 H 52 L 145 H Lactic Acid Calcium Phosphorus Magnesium Direct Bilirubin AST ALT Alkaline Phosphatase Lactate Dehydrogenase Troponin T C-Reactive Protein Total Protein Albumin Prealbumin Triglycerides Cholesterol LDL Cholesterol Direct HDL Cholesterol Urine pH Urine WBC (Auto) Urine Creatinine Urine Total Protein Fluid Total Protein Vancomycin Trough Rheumatoid Factor Complement C4 Miscellaneous Test Crossmatch 10/02/16 10/02/16 10/02/16 10:30 10:50 10:50 WBC 14.7 H RBC 2.76 L Hgb 7.4 L Hct 23.6 L MCV MCH 27 L MCHC RDW 20.2 H Plt Count 79 L Lymph % (Auto) [place] % (Auto) Lymph # [place] # Baso # Seg Neutrophils % Seg Neuts % (Manual) 86.0 H Lymphocytes % (Manual) 6.0 L Monocytes % (Manual) Eosinophils % (Manual) Basophils % (Manual) Nucleated RBC % Seg Neutrophils # Seg Neutrophils # Man 12.6 H Lymphocytes # (Manual) 0.9 L Monocytes # (Manual) Eosinophils # (Manual) Basophils # (Manual) PT INR Fibrinogen dRVVT Confirm Interp Factor V Activity POC ABG pH 7.486 H POC ABG pCO2 30.1 L POC ABG pO2 108 H ABG pO2 ABG HCO3 ABG Base Excess ABG Hemoglobin Oxyhemoglobin Sodium 131 L Potassium 3.4 L Chloride 89.9 L Carbon Dioxide BUN 26 H Creatinine 2.6 H Glucose POC Glucose Lactic Acid Calcium 7.0 L Phosphorus Magnesium Direct Bilirubin AST ALT Alkaline Phosphatase Lactate Dehydrogenase Troponin T C-Reactive Protein Total Protein Albumin Prealbumin Triglycerides Cholesterol LDL Cholesterol Direct HDL Cholesterol Urine pH Urine WBC (Auto) Urine Creatinine Urine Total Protein Fluid Total Protein Vancomycin Trough Rheumatoid Factor Complement C4 Miscellaneous Test Crossmatch 10/02/16 10/03/16 10/03/16 23:45 00:45 05:10 WBC 12.9 H RBC 2.77 L Hgb 7.6 L Hct 23.7 L MCV MCH 27 L MCHC RDW 19.7 H Plt Count 89 L Lymph % (Auto) [place] % (Auto) Lymph # [place] # Baso # Seg Neutrophils % Seg Neuts % (Manual) Lymphocytes % (Manual) 8.0 L Monocytes % (Manual) Eosinophils % (Manual) Basophils % (Manual) Nucleated RBC % Seg Neutrophils # 11.9 H Seg Neutrophils # Man Lymphocytes # (Manual) 1.0 L Monocytes # (Manual) Eosinophils # (Manual) Basophils # (Manual) PT INR Fibrinogen dRVVT Confirm Interp Factor V Activity POC ABG pH POC ABG pCO2 POC ABG pO2 ABG pO2 ABG HCO3 ABG Base Excess ABG Hemoglobin Oxyhemoglobin Sodium Potassium Chloride Carbon Dioxide BUN Creatinine Glucose POC Glucose 55 L 199 H Lactic Acid Calcium Phosphorus Magnesium Direct Bilirubin AST ALT Alkaline Phosphatase Lactate Dehydrogenase Troponin T C-Reactive Protein Total Protein Albumin Prealbumin Triglycerides Cholesterol LDL Cholesterol Direct HDL Cholesterol Urine pH Urine WBC (Auto) Urine Creatinine Urine Total Protein Fluid Total Protein Vancomycin Trough Rheumatoid Factor Complement C4 Miscellaneous Test Crossmatch 10/03/16 10/03/16 10/03/16 05:10 12:14 13:18 WBC RBC Hgb Hct MCV MCH MCHC RDW Plt Count Lymph % (Auto) [place] % (Auto) Lymph # [place] # Baso # Seg Neutrophils % Seg Neuts % (Manual) Lymphocytes % (Manual) Monocytes % (Manual) Eosinophils % (Manual) Basophils % (Manual) Nucleated RBC % Seg Neutrophils # Seg Neutrophils # Man Lymphocytes # (Manual) Monocytes # (Manual) Eosinophils # (Manual) Basophils # (Manual) PT INR Fibrinogen dRVVT Confirm Interp Factor V Activity POC ABG pH POC ABG pCO2 POC ABG pO2 ABG pO2 ABG HCO3 ABG Base Excess ABG Hemoglobin Oxyhemoglobin Sodium 129 L Potassium 3.3 L Chloride 88.8 L Carbon Dioxide 20 L BUN 29 H Creatinine 2.8 H Glucose POC Glucose 68 L 127 H Lactic Acid Calcium 7.2 L Phosphorus Magnesium Direct Bilirubin AST ALT Alkaline Phosphatase Lactate Dehydrogenase Troponin T C-Reactive Protein Total Protein Albumin Prealbumin Triglycerides Cholesterol LDL Cholesterol Direct HDL Cholesterol Urine pH Urine WBC (Auto) Urine Creatinine Urine Total Protein Fluid Total Protein Vancomycin Trough Rheumatoid Factor Complement C4 Miscellaneous Test Crossmatch 10/03/16 10/03/16 10/03/16 14:42 18:21 19:09 WBC RBC Hgb Hct MCV MCH MCHC RDW Plt Count Lymph % (Auto) [place] % (Auto) Lymph # [place] # Baso # Seg Neutrophils % Seg Neuts % (Manual) Lymphocytes % (Manual) Monocytes % (Manual) Eosinophils % (Manual) Basophils % (Manual) Nucleated RBC % Seg Neutrophils # Seg Neutrophils # Man Lymphocytes # (Manual) Monocytes # (Manual) Eosinophils # (Manual) Basophils # (Manual) PT INR Fibrinogen dRVVT Confirm Interp Factor V Activity POC ABG pH 7.499 H POC ABG pCO2 28.4 L POC ABG pO2 44 L ABG pO2 ABG HCO3 ABG Base Excess ABG Hemoglobin Oxyhemoglobin Sodium Potassium Chloride Carbon Dioxide BUN Creatinine Glucose POC Glucose 64 L 205 H Lactic Acid Calcium Phosphorus Magnesium Direct Bilirubin AST ALT Alkaline Phosphatase Lactate Dehydrogenase Troponin T C-Reactive Protein Total Protein Albumin Prealbumin Triglycerides Cholesterol LDL Cholesterol Direct HDL Cholesterol Urine pH Urine WBC (Auto) Urine Creatinine Urine Total Protein Fluid Total Protein Vancomycin Trough Rheumatoid Factor Complement C4 Miscellaneous Test Crossmatch 10/03/16 10/04/16 10/04/16 23:33 04:18 06:30 WBC RBC 2.54 L Hgb 7.1 L Hct 21.7 L MCV MCH MCHC RDW 19.5 H Plt Count 76 L Lymph % (Auto) [place] % (Auto) Lymph # [place] # Baso # Seg Neutrophils % Seg Neuts % (Manual) 88.0 H Lymphocytes % (Manual) 6.0 L Monocytes % (Manual) Eosinophils % (Manual) Basophils % (Manual) Nucleated RBC % Seg Neutrophils # Seg Neutrophils # Man 8.8 H Lymphocytes # (Manual) 0.6 L Monocytes # (Manual) Eosinophils # (Manual) Basophils # (Manual) PT INR Fibrinogen dRVVT Confirm Interp Factor V Activity POC ABG pH 7.461 H POC ABG pCO2 33.6 L POC ABG pO2 211 H ABG pO2 ABG HCO3 ABG Base Excess ABG Hemoglobin Oxyhemoglobin Sodium Potassium Chloride Carbon Dioxide BUN Creatinine Glucose POC Glucose 136 H Lactic Acid Calcium Phosphorus Magnesium Direct Bilirubin AST ALT Alkaline Phosphatase Lactate Dehydrogenase Troponin T C-Reactive Protein Total Protein Albumin Prealbumin Triglycerides Cholesterol LDL Cholesterol Direct HDL Cholesterol Urine pH Urine WBC (Auto) Urine Creatinine Urine Total Protein Fluid Total Protein Vancomycin Trough Rheumatoid Factor Complement C4 Miscellaneous Test Crossmatch 10/04/16 10/04/16 10/04/16 06:30 11:45 17:54 WBC RBC Hgb Hct MCV MCH MCHC RDW Plt Count Lymph % (Auto) [place] % (Auto) Lymph # [place] # Baso # Seg Neutrophils % Seg Neuts % (Manual) Lymphocytes % (Manual) Monocytes % (Manual) Eosinophils % (Manual) Basophils % (Manual) Nucleated RBC % Seg Neutrophils # Seg Neutrophils # Man Lymphocytes # (Manual) Monocytes # (Manual) Eosinophils # (Manual) Basophils # (Manual) PT INR Fibrinogen dRVVT Confirm Interp Factor V Activity POC ABG pH POC ABG pCO2 POC ABG pO2 ABG pO2 ABG HCO3 ABG Base Excess ABG Hemoglobin Oxyhemoglobin Sodium 128 L Potassium Chloride 87.4 L Carbon Dioxide 20 L BUN 34 H Creatinine 2.9 H Glucose 127 H POC Glucose 158 H 160 H Lactic Acid Calcium 7.4 L Phosphorus Magnesium Direct Bilirubin AST ALT Alkaline Phosphatase Lactate Dehydrogenase Troponin T C-Reactive Protein Total Protein Albumin Prealbumin Triglycerides Cholesterol LDL Cholesterol Direct HDL Cholesterol Urine pH Urine WBC (Auto) Urine Creatinine Urine Total Protein Fluid Total Protein Vancomycin Trough Rheumatoid Factor Complement C4 Miscellaneous Test Crossmatch 10/04/16 10/05/16 10/05/16 23:25 04:30 05:00 WBC RBC 2.64 L Hgb 7.5 L Hct 22.6 L MCV MCH MCHC RDW 19.3 H Plt Count 80 L Lymph % (Auto) [place] % (Auto) Lymph # [place] # Baso # Seg Neutrophils % Seg Neuts % (Manual) Lymphocytes % (Manual) 12.0 L Monocytes % (Manual) Eosinophils % (Manual) Basophils % (Manual) Nucleated RBC % Seg Neutrophils # Seg Neutrophils # Man Lymphocytes # (Manual) Monocytes # (Manual) Eosinophils # (Manual) Basophils # (Manual) PT INR Fibrinogen dRVVT Confirm Interp Factor V Activity POC ABG pH 7.475 H POC ABG pCO2 33.3 L POC ABG pO2 140 H ABG pO2 ABG HCO3 ABG Base Excess ABG Hemoglobin Oxyhemoglobin Sodium Potassium Chloride Carbon Dioxide BUN Creatinine Glucose POC Glucose 141 H Lactic Acid Calcium Phosphorus Magnesium Direct Bilirubin AST ALT Alkaline Phosphatase Lactate Dehydrogenase Troponin T C-Reactive Protein Total Protein Albumin Prealbumin Triglycerides Cholesterol LDL Cholesterol Direct HDL Cholesterol Urine pH Urine WBC (Auto) Urine Creatinine Urine Total Protein Fluid Total Protein Vancomycin Trough Rheumatoid Factor Complement C4 Miscellaneous Test Crossmatch 10/05/16 10/05/16 10/05/16 05:00 05:09 12:58 WBC RBC Hgb Hct MCV MCH MCHC RDW Plt Count Lymph % (Auto) [place] % (Auto) Lymph # [place] # Baso # Seg Neutrophils % Seg Neuts % (Manual) Lymphocytes % (Manual) Monocytes % (Manual) Eosinophils % (Manual) Basophils % (Manual) Nucleated RBC % Seg Neutrophils # Seg Neutrophils # Man Lymphocytes # (Manual) Monocytes # (Manual) Eosinophils # (Manual) Basophils # (Manual) PT INR Fibrinogen dRVVT Confirm Interp Factor V Activity POC ABG pH POC ABG pCO2 POC ABG pO2 ABG pO2 ABG HCO3 ABG Base Excess ABG Hemoglobin Oxyhemoglobin Sodium 131 L Potassium Chloride 94.0 L Carbon Dioxide 20 L BUN 22 H Creatinine 2.0 H Glucose 123 H POC Glucose 166 H 179 H Lactic Acid Calcium 7.7 L Phosphorus 2.20 L D Magnesium Direct Bilirubin AST ALT Alkaline Phosphatase Lactate Dehydrogenase Troponin T C-Reactive Protein Total Protein Albumin Prealbumin Triglycerides Cholesterol LDL Cholesterol Direct HDL Cholesterol Urine pH Urine WBC (Auto) Urine Creatinine Urine Total Protein Fluid Total Protein Vancomycin Trough Rheumatoid Factor Complement C4 Miscellaneous Test Crossmatch 10/05/16 10/05/16 10/05/16 15:50 18:53 23:12 WBC RBC Hgb Hct MCV MCH MCHC RDW Plt Count Lymph % (Auto) [place] % (Auto) Lymph # [place] # Baso # Seg Neutrophils % Seg Neuts % (Manual) Lymphocytes % (Manual) Monocytes % (Manual) Eosinophils % (Manual) Basophils % (Manual) Nucleated RBC % Seg Neutrophils # Seg Neutrophils # Man Lymphocytes # (Manual) Monocytes # (Manual) Eosinophils # (Manual) Basophils # (Manual) PT INR Fibrinogen dRVVT Confirm Interp Factor V Activity POC ABG pH POC ABG pCO2 POC ABG pO2 ABG pO2 ABG HCO3 ABG Base Excess ABG Hemoglobin Oxyhemoglobin Sodium Potassium Chloride Carbon Dioxide BUN Creatinine Glucose POC Glucose 150 H 164 H Lactic Acid Calcium Phosphorus Magnesium Direct Bilirubin AST ALT Alkaline Phosphatase Lactate Dehydrogenase Troponin T C-Reactive Protein Total Protein Albumin Prealbumin Triglycerides Cholesterol LDL Cholesterol Direct HDL Cholesterol Urine pH Urine WBC (Auto) Urine Creatinine Urine Total Protein Fluid Total Protein Vancomycin Trough Rheumatoid Factor Complement C4 Miscellaneous Test Crossmatch See Detail 10/06/16 10/06/16 10/06/16 03:50 03:50 04:53 WBC RBC 3.00 L Hgb 8.6 L Hct 25.8 L MCV MCH MCHC RDW 17.9 H Plt Count 65 L Lymph % (Auto) [place] % (Auto) Lymph # [place] # Baso # Seg Neutrophils % Seg Neuts % (Manual) 30.0 L Lymphocytes % (Manual) 5.0 L Monocytes % (Manual) Eosinophils % (Manual) Basophils % (Manual) Nucleated RBC % Seg Neutrophils # Seg Neutrophils # Man Lymphocytes # (Manual) 0.4 L Monocytes # (Manual) Eosinophils # (Manual) Basophils # (Manual) PT INR Fibrinogen dRVVT Confirm Interp Factor V Activity POC ABG pH 7.310 L POC ABG pCO2 49.0 H POC ABG pO2 ABG pO2 ABG HCO3 ABG Base Excess ABG Hemoglobin Oxyhemoglobin Sodium 133 L Potassium Chloride 95.9 L Carbon Dioxide BUN 26 H Creatinine 2.0 H Glucose 116 H POC Glucose Lactic Acid Calcium 7.8 L Phosphorus Magnesium Direct Bilirubin AST ALT Alkaline Phosphatase Lactate Dehydrogenase Troponin T C-Reactive Protein Total Protein Albumin Prealbumin Triglycerides Cholesterol LDL Cholesterol Direct HDL Cholesterol Urine pH Urine WBC (Auto) Urine Creatinine Urine Total Protein Fluid Total Protein Vancomycin Trough Rheumatoid Factor Complement C4 Miscellaneous Test Crossmatch 10/06/16 10/06/16 10/06/16 05:23 11:52 18:34 WBC RBC Hgb Hct MCV MCH MCHC RDW Plt Count Lymph % (Auto) [place] % (Auto) Lymph # [place] # Baso # Seg Neutrophils % Seg Neuts % (Manual) Lymphocytes % (Manual) Monocytes % (Manual) Eosinophils % (Manual) Basophils % (Manual) Nucleated RBC % Seg Neutrophils # Seg Neutrophils # Man Lymphocytes # (Manual) Monocytes # (Manual) Eosinophils # (Manual) Basophils # (Manual) PT INR Fibrinogen dRVVT Confirm Interp Factor V Activity POC ABG pH POC ABG pCO2 POC ABG pO2 ABG pO2 ABG HCO3 ABG Base Excess ABG Hemoglobin Oxyhemoglobin Sodium Potassium Chloride Carbon Dioxide BUN Creatinine Glucose POC Glucose 126 H 116 H 129 H Lactic Acid Calcium Phosphorus Magnesium Direct Bilirubin AST ALT Alkaline Phosphatase Lactate Dehydrogenase Troponin T C-Reactive Protein Total Protein Albumin Prealbumin Triglycerides Cholesterol LDL Cholesterol Direct HDL Cholesterol Urine pH Urine WBC (Auto) Urine Creatinine Urine Total Protein Fluid Total Protein Vancomycin Trough Rheumatoid Factor Complement C4 Miscellaneous Test Crossmatch 10/07/16 10/07/16 10/07/16 03:45 05:00 10:00 WBC 17.0 H RBC 2.68 L Hgb 7.3 L Hct 25.3 L MCV MCH 27 L MCHC 29 L RDW 19.6 H Plt Count 74 L Lymph % (Auto) [place] % (Auto) Lymph # [place] # Baso # Seg Neutrophils % Seg Neuts % (Manual) Lymphocytes % (Manual) 12.0 L Monocytes % (Manual) Eosinophils % (Manual) Basophils % (Manual) Nucleated RBC % 4.0 H Seg Neutrophils # Seg Neutrophils # Man 10.7 H Lymphocytes # (Manual) Monocytes # (Manual) Eosinophils # (Manual) Basophils # (Manual) PT INR Fibrinogen dRVVT Confirm Interp Factor V Activity POC ABG pH POC ABG pCO2 POC ABG pO2 ABG pO2 ABG HCO3 ABG Base Excess ABG Hemoglobin Oxyhemoglobin Sodium 130 L Potassium 3.2 L Chloride 93.9 L Carbon Dioxide 20 L BUN 44 H Creatinine 2.7 H Glucose 129 H POC Glucose Lactic Acid Calcium 7.4 L Phosphorus Magnesium Direct Bilirubin AST ALT 6 L Alkaline Phosphatase 195 H Lactate Dehydrogenase Troponin T C-Reactive Protein Total Protein 4.9 L Albumin 1.0 L Prealbumin Triglycerides Cholesterol LDL Cholesterol Direct HDL Cholesterol Urine pH Urine WBC (Auto) Urine Creatinine Urine Total Protein Fluid Total Protein Vancomycin Trough Rheumatoid Factor Complement C4 Miscellaneous Test Flexitest 1 H Crossmatch 10/07/16 10/07/16 10/07/16 10:00 11:24 18:10 WBC RBC Hgb Hct MCV MCH MCHC RDW Plt Count Lymph % (Auto) [place] % (Auto) Lymph # [place] # Baso # Seg Neutrophils % Seg Neuts % (Manual) Lymphocytes % (Manual) Monocytes % (Manual) Eosinophils % (Manual) Basophils % (Manual) Nucleated RBC % Seg Neutrophils # Seg Neutrophils # Man Lymphocytes # (Manual) Monocytes # (Manual) Eosinophils # (Manual) Basophils # (Manual) PT INR Fibrinogen dRVVT Confirm Interp Factor V Activity POC ABG pH POC ABG pCO2 POC ABG pO2 ABG pO2 ABG HCO3 ABG Base Excess ABG Hemoglobin Oxyhemoglobin Sodium Potassium Chloride Carbon Dioxide BUN Creatinine Glucose POC Glucose 116 H 130 H Lactic Acid Calcium Phosphorus Magnesium Direct Bilirubin AST ALT Alkaline Phosphatase Lactate Dehydrogenase Troponin T C-Reactive Protein 19.40 H Total Protein Albumin Prealbumin Triglycerides Cholesterol LDL Cholesterol Direct HDL Cholesterol Urine pH Urine WBC (Auto) Urine Creatinine Urine Total Protein Fluid Total Protein Vancomycin Trough Rheumatoid Factor Complement C4 Miscellaneous Test Crossmatch 10/07/16 10/08/16 10/08/16 18:30 00:00 04:00 WBC RBC Hgb Hct MCV MCH MCHC RDW Plt Count Lymph % (Auto) [place] % (Auto) Lymph # [place] # Baso # Seg Neutrophils % Seg Neuts % (Manual) Lymphocytes % (Manual) Monocytes % (Manual) Eosinophils % (Manual) Basophils % (Manual) Nucleated RBC % Seg Neutrophils # Seg Neutrophils # Man Lymphocytes # (Manual) Monocytes # (Manual) Eosinophils # (Manual) Basophils # (Manual) PT INR Fibrinogen dRVVT Confirm Interp Factor V Activity POC ABG pH POC ABG pCO2 POC ABG pO2 ABG pO2 ABG HCO3 ABG Base Excess ABG Hemoglobin Oxyhemoglobin Sodium 132 L Potassium 3.3 L Chloride 93.6 L Carbon Dioxide 17 L BUN 59 H Creatinine 2.7 H Glucose 121 H POC Glucose 122 H Lactic Acid Calcium 7.6 L Phosphorus Magnesium Direct Bilirubin AST ALT Alkaline Phosphatase Lactate Dehydrogenase Troponin T C-Reactive Protein Total Protein Albumin Prealbumin Triglycerides Cholesterol LDL Cholesterol Direct HDL Cholesterol Urine pH Urine WBC (Auto) > 182.0 H Urine Creatinine Urine Total Protein Fluid Total Protein Vancomycin Trough Rheumatoid Factor Complement C4 Miscellaneous Test Crossmatch 10/08/16 10/08/16 10/08/16 04:30 05:30 11:51 WBC RBC 5.15 H Hgb 14.4 H D Hct 44.5 H D MCV MCH MCHC RDW 19.5 H Plt Count 56 L Lymph % (Auto) [place] % (Auto) Lymph # [place] # Baso # Seg Neutrophils % Seg Neuts % (Manual) 24.0 L Lymphocytes % (Manual) 8.0 L Monocytes % (Manual) Eosinophils % (Manual) Basophils % (Manual) Nucleated RBC % 9.0 H Seg Neutrophils # Seg Neutrophils # Man Lymphocytes # (Manual) 0.7 L Monocytes # (Manual) Eosinophils # (Manual) Basophils # (Manual) PT INR Fibrinogen dRVVT Confirm Interp Factor V Activity POC ABG pH POC ABG pCO2 POC ABG pO2 ABG pO2 ABG HCO3 ABG Base Excess ABG Hemoglobin Oxyhemoglobin Sodium Potassium Chloride Carbon Dioxide BUN Creatinine Glucose POC Glucose 125 H 150 H Lactic Acid Calcium Phosphorus Magnesium Direct Bilirubin AST ALT Alkaline Phosphatase Lactate Dehydrogenase Troponin T C-Reactive Protein Total Protein Albumin Prealbumin Triglycerides Cholesterol LDL Cholesterol Direct HDL Cholesterol Urine pH Urine WBC (Auto) Urine Creatinine Urine Total Protein Fluid Total Protein Vancomycin Trough Rheumatoid Factor Complement C4 Miscellaneous Test Crossmatch 10/08/16 10/08/16 10/08/16 12:49 17:07 19:30 WBC RBC Hgb 7.1 L D Hct 22.4 L D MCV MCH MCHC RDW Plt Count Lymph % (Auto) [place] % (Auto) Lymph # [place] # Baso # Seg Neutrophils % Seg Neuts % (Manual) Lymphocytes % (Manual) Monocytes % (Manual) Eosinophils % (Manual) Basophils % (Manual) Nucleated RBC % Seg Neutrophils # Seg Neutrophils # Man Lymphocytes # (Manual) Monocytes # (Manual) Eosinophils # (Manual) Basophils # (Manual) PT INR Fibrinogen dRVVT Confirm Interp Factor V Activity POC ABG pH POC ABG pCO2 28.2 L POC ABG pO2 111 H ABG pO2 ABG HCO3 ABG Base Excess ABG Hemoglobin Oxyhemoglobin Sodium Potassium Chloride Carbon Dioxide BUN Creatinine Glucose POC Glucose 145 H Lactic Acid Calcium Phosphorus Magnesium Direct Bilirubin AST ALT Alkaline Phosphatase Lactate Dehydrogenase Troponin T C-Reactive Protein Total Protein Albumin Prealbumin Triglycerides Cholesterol LDL Cholesterol Direct HDL Cholesterol Urine pH Urine WBC (Auto) Urine Creatinine Urine Total Protein Fluid Total Protein Vancomycin Trough Rheumatoid Factor Complement C4 Miscellaneous Test Crossmatch 10/08/16 10/09/16 10/09/16 19:30 03:45 03:45 WBC 12.6 H RBC 2.36 L Hgb 6.7 L Hct 21.1 L MCV MCH MCHC RDW 19.5 H Plt Count 75 L Lymph % (Auto) [place] % (Auto) Lymph # [place] # Baso # Seg Neutrophils % Seg Neuts % (Manual) Lymphocytes % (Manual) Monocytes % (Manual) 10.0 H Eosinophils % (Manual) Basophils % (Manual) Nucleated RBC % 3.0 H Seg Neutrophils # Seg Neutrophils # Man Lymphocytes # (Manual) Monocytes # (Manual) 1.3 H Eosinophils # (Manual) Basophils # (Manual) PT 18.0 H INR 1.41 H Fibrinogen dRVVT Confirm Interp Factor V Activity POC ABG pH POC ABG pCO2 POC ABG pO2 ABG pO2 ABG HCO3 ABG Base Excess ABG Hemoglobin Oxyhemoglobin Sodium 135 L Potassium Chloride Carbon Dioxide 17 L BUN 81 H Creatinine 3.2 H Glucose 109 H POC Glucose Lactic Acid Calcium 7.4 L Phosphorus 4.60 H D Magnesium Direct Bilirubin AST ALT Alkaline Phosphatase Lactate Dehydrogenase Troponin T C-Reactive Protein Total Protein Albumin Prealbumin Triglycerides Cholesterol LDL Cholesterol Direct HDL Cholesterol Urine pH Urine WBC (Auto) Urine Creatinine Urine Total Protein Fluid Total Protein Vancomycin Trough Rheumatoid Factor Complement C4 Miscellaneous Test Crossmatch 10/09/16 10/09/16 10/09/16 03:45 05:14 07:20 WBC RBC Hgb Hct MCV MCH MCHC RDW Plt Count Lymph % (Auto) [place] % (Auto) Lymph # [place] # Baso # Seg Neutrophils % Seg Neuts % (Manual) Lymphocytes % (Manual) Monocytes % (Manual) Eosinophils % (Manual) Basophils % (Manual) Nucleated RBC % Seg Neutrophils # Seg Neutrophils # Man Lymphocytes # (Manual) Monocytes # (Manual) Eosinophils # (Manual) Basophils # (Manual) PT 19.0 H INR 1.51 H Fibrinogen dRVVT Confirm Interp Factor V Activity POC ABG pH POC ABG pCO2 POC ABG pO2 ABG pO2 ABG HCO3 ABG Base Excess ABG Hemoglobin Oxyhemoglobin Sodium Potassium Chloride Carbon Dioxide BUN Creatinine Glucose POC Glucose 151 H Lactic Acid Calcium Phosphorus Magnesium Direct Bilirubin AST ALT Alkaline Phosphatase Lactate Dehydrogenase Troponin T C-Reactive Protein Total Protein Albumin Prealbumin Triglycerides Cholesterol LDL Cholesterol Direct HDL Cholesterol Urine pH Urine WBC (Auto) Urine Creatinine Urine Total Protein Fluid Total Protein Vancomycin Trough Rheumatoid Factor Complement C4 Miscellaneous Test Crossmatch See Detail 10/09/16 10/09/16 10/09/16 11:46 16:20 16:43 WBC RBC Hgb 7.2 L Hct 22.2 L MCV MCH MCHC RDW Plt Count Lymph % (Auto) [place] % (Auto) Lymph # [place] # Baso # Seg Neutrophils % Seg Neuts % (Manual) Lymphocytes % (Manual) Monocytes % (Manual) Eosinophils % (Manual) Basophils % (Manual) Nucleated RBC % Seg Neutrophils # Seg Neutrophils # Man Lymphocytes # (Manual) Monocytes # (Manual) Eosinophils # (Manual) Basophils # (Manual) PT INR Fibrinogen dRVVT Confirm Interp Factor V Activity POC ABG pH POC ABG pCO2 POC ABG pO2 ABG pO2 ABG HCO3 ABG Base Excess ABG Hemoglobin Oxyhemoglobin Sodium Potassium Chloride Carbon Dioxide BUN Creatinine Glucose POC Glucose 133 H 141 H Lactic Acid Calcium Phosphorus Magnesium Direct Bilirubin AST ALT Alkaline Phosphatase Lactate Dehydrogenase Troponin T C-Reactive Protein Total Protein Albumin Prealbumin Triglycerides Cholesterol LDL Cholesterol Direct HDL Cholesterol Urine pH Urine WBC (Auto) Urine Creatinine Urine Total Protein Fluid Total Protein Vancomycin Trough Rheumatoid Factor Complement C4 Miscellaneous Test Crossmatch 10/10/16 10/10/16 10/10/16 05:00 05:00 11:19 WBC 18.5 H RBC 2.19 L Hgb 6.4 L Hct 19.6 L* MCV MCH MCHC RDW 19.3 H Plt Count 93 L Lymph % (Auto) [place] % (Auto) Lymph # [place] # Baso # Seg Neutrophils % Seg Neuts % (Manual) Lymphocytes % (Manual) 10.0 L Monocytes % (Manual) Eosinophils % (Manual) Basophils % (Manual) Nucleated RBC % 4.0 H Seg Neutrophils # Seg Neutrophils # Man 11.3 H Lymphocytes # (Manual) Monocytes # (Manual) Eosinophils # (Manual) Basophils # (Manual) PT INR Fibrinogen dRVVT Confirm Interp Factor V Activity POC ABG pH POC ABG pCO2 POC ABG pO2 ABG pO2 ABG HCO3 ABG Base Excess ABG Hemoglobin Oxyhemoglobin Sodium Potassium 5.7 H D Chloride Carbon Dioxide 16 L BUN 94 H Creatinine 3.1 H Glucose 131 H POC Glucose 153 H Lactic Acid Calcium 8.2 L Phosphorus 5.10 H Magnesium 2.40 H Direct Bilirubin 0.3 H AST ALT < 5 L Alkaline Phosphatase 319 H Lactate Dehydrogenase Troponin T C-Reactive Protein Total Protein 5.1 L Albumin 1.0 L Prealbumin Triglycerides Cholesterol LDL Cholesterol Direct HDL Cholesterol Urine pH Urine WBC (Auto) Urine Creatinine Urine Total Protein Fluid Total Protein Vancomycin Trough Rheumatoid Factor Complement C4 Miscellaneous Test Crossmatch 10/10/16 10/10/16 10/11/16 17:50 23:30 04:15 WBC RBC Hgb Hct MCV MCH MCHC RDW Plt Count Lymph % (Auto) [place] % (Auto) Lymph # [place] # Baso # Seg Neutrophils % Seg Neuts % (Manual) Lymphocytes % (Manual) Monocytes % (Manual) Eosinophils % (Manual) Basophils % (Manual) Nucleated RBC % Seg Neutrophils # Seg Neutrophils # Man Lymphocytes # (Manual) Monocytes # (Manual) Eosinophils # (Manual) Basophils # (Manual) PT INR Fibrinogen dRVVT Confirm Interp Factor V Activity POC ABG pH POC ABG pCO2 POC ABG pO2 ABG pO2 ABG HCO3 ABG Base Excess ABG Hemoglobin Oxyhemoglobin Sodium Potassium Chloride 96.4 L Carbon Dioxide 21 L BUN 57 H Creatinine 2.1 H Glucose 151 H POC Glucose 146 H 141 H Lactic Acid Calcium 8.3 L Phosphorus Magnesium Direct Bilirubin AST ALT Alkaline Phosphatase Lactate Dehydrogenase Troponin T C-Reactive Protein Total Protein Albumin Prealbumin Triglycerides Cholesterol LDL Cholesterol Direct HDL Cholesterol Urine pH Urine WBC (Auto) Urine Creatinine Urine Total Protein Fluid Total Protein Vancomycin Trough Rheumatoid Factor Complement C4 Miscellaneous Test Crossmatch 10/11/16 10/11/16 10/11/16 04:15 04:15 05:30 WBC 28.3 H RBC 3.12 L Hgb 9.3 L Hct 28.7 L D MCV MCH MCHC RDW 17.7 H Plt Count 128 L Lymph % (Auto) [place] % (Auto) Lymph # [place] # Baso # Seg Neutrophils % Seg Neuts % (Manual) Lymphocytes % (Manual) Monocytes % (Manual) Eosinophils % (Manual) Basophils % (Manual) Nucleated RBC % Seg Neutrophils # Seg Neutrophils # Man Lymphocytes # (Manual) Monocytes # (Manual) Eosinophils # (Manual) Basophils # (Manual) PT INR Fibrinogen dRVVT Confirm Interp Factor V Activity POC ABG pH POC ABG pCO2 POC ABG pO2 ABG pO2 ABG HCO3 ABG Base Excess ABG Hemoglobin Oxyhemoglobin Sodium Potassium Chloride Carbon Dioxide BUN Creatinine Glucose POC Glucose 167 H Lactic Acid Calcium Phosphorus Magnesium Direct Bilirubin AST ALT Alkaline Phosphatase Lactate Dehydrogenase Troponin T C-Reactive Protein 15.80 H Total Protein Albumin Prealbumin Triglycerides Cholesterol LDL Cholesterol Direct HDL Cholesterol Urine pH Urine WBC (Auto) Urine Creatinine Urine Total Protein Fluid Total Protein Vancomycin Trough Rheumatoid Factor Complement C4 Miscellaneous Test Crossmatch 10/11/16 10/11/16 10/11/16 11:40 15:49 23:57 WBC RBC Hgb Hct MCV MCH MCHC RDW Plt Count Lymph % (Auto) [place] % (Auto) Lymph # [place] # Baso # Seg Neutrophils % Seg Neuts % (Manual) Lymphocytes % (Manual) Monocytes % (Manual) Eosinophils % (Manual) Basophils % (Manual) Nucleated RBC % Seg Neutrophils # Seg Neutrophils # Man Lymphocytes # (Manual) Monocytes # (Manual) Eosinophils # (Manual) Basophils # (Manual) PT INR Fibrinogen dRVVT Confirm Interp Factor V Activity POC ABG pH POC ABG pCO2 POC ABG pO2 ABG pO2 ABG HCO3 ABG Base Excess ABG Hemoglobin Oxyhemoglobin Sodium Potassium Chloride Carbon Dioxide BUN Creatinine Glucose POC Glucose 139 H 168 H 161 H Lactic Acid Calcium Phosphorus Magnesium Direct Bilirubin AST ALT Alkaline Phosphatase Lactate Dehydrogenase Troponin T C-Reactive Protein Total Protein Albumin Prealbumin Triglycerides Cholesterol LDL Cholesterol Direct HDL Cholesterol Urine pH Urine WBC (Auto) Urine Creatinine Urine Total Protein Fluid Total Protein Vancomycin Trough Rheumatoid Factor Complement C4 Miscellaneous Test Crossmatch 10/12/16 10/12/16 10/12/16 04:40 04:40 05:44 WBC 22.5 H RBC 2.88 L Hgb 8.8 L Hct 26.8 L MCV MCH MCHC RDW 17.8 H Plt Count Lymph % (Auto) [place] % (Auto) Lymph # [place] # Baso # Seg Neutrophils % Seg Neuts % (Manual) Lymphocytes % (Manual) Monocytes % (Manual) Eosinophils % (Manual) Basophils % (Manual) Nucleated RBC % Seg Neutrophils # Seg Neutrophils # Man Lymphocytes # (Manual) Monocytes # (Manual) Eosinophils # (Manual) Basophils # (Manual) PT INR Fibrinogen dRVVT Confirm Interp Factor V Activity POC ABG pH POC ABG pCO2 POC ABG pO2 ABG pO2 ABG HCO3 ABG Base Excess ABG Hemoglobin Oxyhemoglobin Sodium 134 L Potassium Chloride 93.0 L Carbon Dioxide BUN 74 H Creatinine 2.5 H Glucose 137 H POC Glucose 158 H Lactic Acid Calcium 8.2 L Phosphorus Magnesium Direct Bilirubin AST ALT Alkaline Phosphatase Lactate Dehydrogenase Troponin T C-Reactive Protein Total Protein Albumin Prealbumin Triglycerides Cholesterol LDL Cholesterol Direct HDL Cholesterol Urine pH Urine WBC (Auto) Urine Creatinine Urine Total Protein Fluid Total Protein Vancomycin Trough Rheumatoid Factor Complement C4 Miscellaneous Test Crossmatch 10/12/16 10/12/16 10/12/16 12:27 18:18 23:46 WBC RBC Hgb Hct MCV MCH MCHC RDW Plt Count Lymph % (Auto) [place] % (Auto) Lymph # [place] # Baso # Seg Neutrophils % Seg Neuts % (Manual) Lymphocytes % (Manual) Monocytes % (Manual) Eosinophils % (Manual) Basophils % (Manual) Nucleated RBC % Seg Neutrophils # Seg Neutrophils # Man Lymphocytes # (Manual) Monocytes # (Manual) Eosinophils # (Manual) Basophils # (Manual) PT INR Fibrinogen dRVVT Confirm Interp Factor V Activity POC ABG pH POC ABG pCO2 POC ABG pO2 ABG pO2 ABG HCO3 ABG Base Excess ABG Hemoglobin Oxyhemoglobin Sodium Potassium Chloride Carbon Dioxide BUN Creatinine Glucose POC Glucose 153 H 140 H 150 H Lactic Acid Calcium Phosphorus Magnesium Direct Bilirubin AST ALT Alkaline Phosphatase Lactate Dehydrogenase Troponin T C-Reactive Protein Total Protein Albumin Prealbumin Triglycerides Cholesterol LDL Cholesterol Direct HDL Cholesterol Urine pH Urine WBC (Auto) Urine Creatinine Urine Total Protein Fluid Total Protein Vancomycin Trough Rheumatoid Factor Complement C4 Miscellaneous Test Crossmatch 10/13/16 10/13/16 10/13/16 06:22 09:20 12:29 WBC RBC Hgb Hct MCV MCH MCHC RDW Plt Count Lymph % (Auto) [place] % (Auto) Lymph # [place] # Baso # Seg Neutrophils % Seg Neuts % (Manual) Lymphocytes % (Manual) Monocytes % (Manual) Eosinophils % (Manual) Basophils % (Manual) Nucleated RBC % Seg Neutrophils # Seg Neutrophils # Man Lymphocytes # (Manual) Monocytes # (Manual) Eosinophils # (Manual) Basophils # (Manual) PT INR Fibrinogen dRVVT Confirm Interp Factor V Activity POC ABG pH POC ABG pCO2 POC ABG pO2 ABG pO2 ABG HCO3 ABG Base Excess ABG Hemoglobin Oxyhemoglobin Sodium Potassium Chloride Carbon Dioxide BUN Creatinine Glucose POC Glucose 165 H 193 H Lactic Acid Calcium Phosphorus Magnesium Direct Bilirubin AST ALT Alkaline Phosphatase Lactate Dehydrogenase Troponin T C-Reactive Protein Total Protein Albumin Prealbumin Triglycerides Cholesterol LDL Cholesterol Direct HDL Cholesterol Urine pH Urine WBC (Auto) Urine Creatinine Urine Total Protein Fluid Total Protein Vancomycin Trough Rheumatoid Factor Complement C4 Miscellaneous Test Flexitest 1 H Crossmatch 10/13/16 10/13/16 10/13/16 18:09 Unknown Unknown WBC 23.4 H RBC 2.83 L Hgb 8.7 L Hct 26.1 L MCV MCH MCHC RDW 18.1 H Plt Count Lymph % (Auto) [place] % (Auto) Lymph # [place] # Baso # Seg Neutrophils % Seg Neuts % (Manual) Lymphocytes % (Manual) Monocytes % (Manual) Eosinophils % (Manual) Basophils % (Manual) Nucleated RBC % Seg Neutrophils # Seg Neutrophils # Man Lymphocytes # (Manual) Monocytes # (Manual) Eosinophils # (Manual) Basophils # (Manual) PT INR Fibrinogen dRVVT Confirm Interp Factor V Activity POC ABG pH POC ABG pCO2 POC ABG pO2 ABG pO2 ABG HCO3 ABG Base Excess ABG Hemoglobin Oxyhemoglobin Sodium Potassium Chloride 95.8 L Carbon Dioxide BUN 82 H Creatinine 2.6 H Glucose 152 H POC Glucose 166 H Lactic Acid Calcium Phosphorus Magnesium Direct Bilirubin AST ALT Alkaline Phosphatase Lactate Dehydrogenase Troponin T C-Reactive Protein Total Protein Albumin Prealbumin Triglycerides Cholesterol LDL Cholesterol Direct HDL Cholesterol Urine pH Urine WBC (Auto) Urine Creatinine Urine Total Protein Fluid Total Protein Vancomycin Trough Rheumatoid Factor Complement C4 Miscellaneous Test Crossmatch 10/14/16 10/14/16 10/14/16 05:38 06:35 08:10 WBC 20.7 H RBC 2.81 L Hgb 8.4 L Hct 27.2 L MCV MCH MCHC RDW 19.4 H Plt Count Lymph % (Auto) [place] % (Auto) Lymph # [place] # Baso # Seg Neutrophils % Seg Neuts % (Manual) Lymphocytes % (Manual) Monocytes % (Manual) Eosinophils % (Manual) Basophils % (Manual) Nucleated RBC % Seg Neutrophils # Seg Neutrophils # Man Lymphocytes # (Manual) Monocytes # (Manual) Eosinophils # (Manual) Basophils # (Manual) PT INR Fibrinogen dRVVT Confirm Interp Factor V Activity POC ABG pH POC ABG pCO2 POC ABG pO2 ABG pO2 ABG HCO3 ABG Base Excess ABG Hemoglobin Oxyhemoglobin Sodium Potassium Chloride Carbon Dioxide BUN 58 H Creatinine 1.9 H Glucose 169 H POC Glucose 195 H Lactic Acid Calcium Phosphorus Magnesium Direct Bilirubin AST ALT Alkaline Phosphatase Lactate Dehydrogenase Troponin T C-Reactive Protein Total Protein Albumin Prealbumin Triglycerides Cholesterol LDL Cholesterol Direct HDL Cholesterol Urine pH Urine WBC (Auto) Urine Creatinine Urine Total Protein Fluid Total Protein Vancomycin Trough Rheumatoid Factor Complement C4 Miscellaneous Test Crossmatch 10/14/16 10/14/16 10/14/16 11:44 17:13 23:28 WBC RBC Hgb Hct MCV MCH MCHC RDW Plt Count Lymph % (Auto) [place] % (Auto) Lymph # [place] # Baso # Seg Neutrophils % Seg Neuts % (Manual) Lymphocytes % (Manual) Monocytes % (Manual) Eosinophils % (Manual) Basophils % (Manual) Nucleated RBC % Seg Neutrophils # Seg Neutrophils # Man Lymphocytes # (Manual) Monocytes # (Manual) Eosinophils # (Manual) Basophils # (Manual) PT INR Fibrinogen dRVVT Confirm Interp Factor V Activity POC ABG pH POC ABG pCO2 POC ABG pO2 ABG pO2 ABG HCO3 ABG Base Excess ABG Hemoglobin Oxyhemoglobin Sodium Potassium Chloride Carbon Dioxide BUN Creatinine Glucose POC Glucose 174 H 121 H 151 H Lactic Acid Calcium Phosphorus Magnesium Direct Bilirubin AST ALT Alkaline Phosphatase Lactate Dehydrogenase Troponin T C-Reactive Protein Total Protein Albumin Prealbumin Triglycerides Cholesterol LDL Cholesterol Direct HDL Cholesterol Urine pH Urine WBC (Auto) Urine Creatinine Urine Total Protein Fluid Total Protein Vancomycin Trough Rheumatoid Factor Complement C4 Miscellaneous Test Crossmatch 10/15/16 10/15/16 10/15/16 05:06 12:26 17:48 WBC RBC Hgb Hct MCV MCH MCHC RDW Plt Count Lymph % (Auto) [place] % (Auto) Lymph # [place] # Baso # Seg Neutrophils % Seg Neuts % (Manual) Lymphocytes % (Manual) Monocytes % (Manual) Eosinophils % (Manual) Basophils % (Manual) Nucleated RBC % Seg Neutrophils # Seg Neutrophils # Man Lymphocytes # (Manual) Monocytes # (Manual) Eosinophils # (Manual) Basophils # (Manual) PT INR Fibrinogen dRVVT Confirm Interp Factor V Activity POC ABG pH POC ABG pCO2 POC ABG pO2 ABG pO2 ABG HCO3 ABG Base Excess ABG Hemoglobin Oxyhemoglobin Sodium Potassium Chloride Carbon Dioxide BUN Creatinine Glucose POC Glucose 151 H 149 H 153 H Lactic Acid Calcium Phosphorus Magnesium Direct Bilirubin AST ALT Alkaline Phosphatase Lactate Dehydrogenase Troponin T C-Reactive Protein Total Protein Albumin Prealbumin Triglycerides Cholesterol LDL Cholesterol Direct HDL Cholesterol Urine pH Urine WBC (Auto) Urine Creatinine Urine Total Protein Fluid Total Protein Vancomycin Trough Rheumatoid Factor Complement C4 Miscellaneous Test Crossmatch 10/15/16 10/15/16 10/16/16 Unknown Unknown 00:02 WBC 23.4 H RBC 2.78 L Hgb 8.5 L Hct 25.7 L MCV MCH MCHC RDW 18.7 H Plt Count Lymph % (Auto) [place] % (Auto) Lymph # [place] # Baso # Seg Neutrophils % Seg Neuts % (Manual) Lymphocytes % (Manual) Monocytes % (Manual) Eosinophils % (Manual) Basophils % (Manual) Nucleated RBC % Seg Neutrophils # Seg Neutrophils # Man Lymphocytes # (Manual) Monocytes # (Manual) Eosinophils # (Manual) Basophils # (Manual) PT INR Fibrinogen dRVVT Confirm Interp Factor V Activity POC ABG pH POC ABG pCO2 POC ABG pO2 ABG pO2 ABG HCO3 ABG Base Excess ABG Hemoglobin Oxyhemoglobin Sodium Potassium Chloride Carbon Dioxide BUN 73 H Creatinine 2.3 H Glucose 120 H POC Glucose 137 H Lactic Acid Calcium Phosphorus Magnesium Direct Bilirubin AST ALT Alkaline Phosphatase Lactate Dehydrogenase Troponin T C-Reactive Protein Total Protein Albumin Prealbumin Triglycerides Cholesterol LDL Cholesterol Direct HDL Cholesterol Urine pH Urine WBC (Auto) Urine Creatinine Urine Total Protein Fluid Total Protein Vancomycin Trough Rheumatoid Factor Complement C4 Miscellaneous Test Crossmatch 10/16/16 10/16/16 10/16/16 05:44 06:25 06:25 WBC 22.5 H RBC 2.76 L Hgb 8.3 L Hct 25.2 L MCV MCH MCHC RDW 18.3 H Plt Count Lymph % (Auto) [place] % (Auto) Lymph # [place] # Baso # Seg Neutrophils % Seg Neuts % (Manual) Lymphocytes % (Manual) Monocytes % (Manual) Eosinophils % (Manual) Basophils % (Manual) Nucleated RBC % Seg Neutrophils # Seg Neutrophils # Man Lymphocytes # (Manual) Monocytes # (Manual) Eosinophils # (Manual) Basophils # (Manual) PT INR Fibrinogen dRVVT Confirm Interp Factor V Activity POC ABG pH POC ABG pCO2 POC ABG pO2 ABG pO2 ABG HCO3 ABG Base Excess ABG Hemoglobin Oxyhemoglobin Sodium Potassium Chloride Carbon Dioxide BUN 92 H Creatinine 3.0 H Glucose 138 H POC Glucose 110 H Lactic Acid Calcium Phosphorus Magnesium Direct Bilirubin AST ALT Alkaline Phosphatase Lactate Dehydrogenase Troponin T C-Reactive Protein Total Protein Albumin Prealbumin Triglycerides Cholesterol LDL Cholesterol Direct HDL Cholesterol Urine pH Urine WBC (Auto) Urine Creatinine Urine Total Protein Fluid Total Protein Vancomycin Trough Rheumatoid Factor Complement C4 Miscellaneous Test Crossmatch 10/16/16 10/16/16 10/16/16 11:27 11:48 17:36 WBC RBC Hgb Hct MCV MCH MCHC RDW Plt Count Lymph % (Auto) [place] % (Auto) Lymph # [place] # Baso # Seg Neutrophils % Seg Neuts % (Manual) Lymphocytes % (Manual) Monocytes % (Manual) Eosinophils % (Manual) Basophils % (Manual) Nucleated RBC % Seg Neutrophils # Seg Neutrophils # Man Lymphocytes # (Manual) Monocytes # (Manual) Eosinophils # (Manual) Basophils # (Manual) PT INR Fibrinogen dRVVT Confirm Interp Factor V Activity POC ABG pH 7.582 H POC ABG pCO2 27.4 L POC ABG pO2 110 H ABG pO2 ABG HCO3 ABG Base Excess ABG Hemoglobin Oxyhemoglobin Sodium Potassium Chloride Carbon Dioxide BUN Creatinine Glucose POC Glucose 121 H 133 H Lactic Acid Calcium Phosphorus Magnesium Direct Bilirubin AST ALT Alkaline Phosphatase Lactate Dehydrogenase Troponin T C-Reactive Protein Total Protein Albumin Prealbumin Triglycerides Cholesterol LDL Cholesterol Direct HDL Cholesterol Urine pH Urine WBC (Auto) Urine Creatinine Urine Total Protein Fluid Total Protein Vancomycin Trough Rheumatoid Factor Complement C4 Miscellaneous Test Crossmatch 10/16/16 10/17/16 10/17/16 20:48 04:24 04:24 WBC 21.4 H RBC 2.72 L Hgb 8.0 L Hct 25.2 L MCV MCH MCHC RDW 18.0 H Plt Count Lymph % (Auto) [place] % (Auto) Lymph # [place] # Baso # Seg Neutrophils % Seg Neuts % (Manual) Lymphocytes % (Manual) Monocytes % (Manual) Eosinophils % (Manual) Basophils % (Manual) Nucleated RBC % Seg Neutrophils # Seg Neutrophils # Man Lymphocytes # (Manual) Monocytes # (Manual) Eosinophils # (Manual) Basophils # (Manual) PT INR Fibrinogen dRVVT Confirm Interp Factor V Activity POC ABG pH 7.561 H POC ABG pCO2 24.4 L POC ABG pO2 77 L ABG pO2 ABG HCO3 ABG Base Excess ABG Hemoglobin Oxyhemoglobin Sodium 148 H Potassium Chloride Carbon Dioxide BUN 104 H Creatinine 3.0 H Glucose 149 H POC Glucose Lactic Acid Calcium Phosphorus Magnesium Direct Bilirubin AST ALT Alkaline Phosphatase 138 H Lactate Dehydrogenase Troponin T C-Reactive Protein Total Protein 6.2 L Albumin 1.5 L Prealbumin Triglycerides Cholesterol LDL Cholesterol Direct HDL Cholesterol Urine pH Urine WBC (Auto) Urine Creatinine Urine Total Protein Fluid Total Protein Vancomycin Trough Rheumatoid Factor Complement C4 Miscellaneous Test Crossmatch 10/17/16 10/17/16 10/17/16 06:02 12:17 17:14 WBC RBC Hgb Hct MCV MCH MCHC RDW Plt Count Lymph % (Auto) [place] % (Auto) Lymph # [place] # Baso # Seg Neutrophils % Seg Neuts % (Manual) Lymphocytes % (Manual) Monocytes % (Manual) Eosinophils % (Manual) Basophils % (Manual) Nucleated RBC % Seg Neutrophils # Seg Neutrophils # Man Lymphocytes # (Manual) Monocytes # (Manual) Eosinophils # (Manual) Basophils # (Manual) PT INR Fibrinogen dRVVT Confirm Interp Factor V Activity POC ABG pH POC ABG pCO2 POC ABG pO2 ABG pO2 ABG HCO3 ABG Base Excess ABG Hemoglobin Oxyhemoglobin Sodium Potassium Chloride Carbon Dioxide BUN Creatinine Glucose POC Glucose 170 H 167 H 126 H Lactic Acid Calcium Phosphorus Magnesium Direct Bilirubin AST ALT Alkaline Phosphatase Lactate Dehydrogenase Troponin T C-Reactive Protein Total Protein Albumin Prealbumin Triglycerides Cholesterol LDL Cholesterol Direct HDL Cholesterol Urine pH Urine WBC (Auto) Urine Creatinine Urine Total Protein Fluid Total Protein Vancomycin Trough Rheumatoid Factor Complement C4 Miscellaneous Test Crossmatch 10/17/16 10/18/16 10/18/16 23:17 04:00 04:00 WBC 20.7 H RBC 2.47 L Hgb 7.4 L Hct 22.9 L MCV MCH MCHC RDW 17.5 H Plt Count Lymph % (Auto) [place] % (Auto) Lymph # [place] # Baso # Seg Neutrophils % Seg Neuts % (Manual) Lymphocytes % (Manual) Monocytes % (Manual) Eosinophils % (Manual) Basophils % (Manual) Nucleated RBC % Seg Neutrophils # Seg Neutrophils # Man Lymphocytes # (Manual) Monocytes # (Manual) Eosinophils # (Manual) Basophils # (Manual) PT INR Fibrinogen dRVVT Confirm Interp Factor V Activity POC ABG pH POC ABG pCO2 POC ABG pO2 ABG pO2 ABG HCO3 ABG Base Excess ABG Hemoglobin Oxyhemoglobin Sodium 149 H Potassium Chloride 107.9 H Carbon Dioxide 20 L BUN 117 H Creatinine 3.2 H Glucose 119 H POC Glucose 121 H Lactic Acid Calcium Phosphorus Magnesium Direct Bilirubin AST ALT Alkaline Phosphatase Lactate Dehydrogenase Troponin T C-Reactive Protein Total Protein Albumin Prealbumin Triglycerides Cholesterol LDL Cholesterol Direct HDL Cholesterol Urine pH Urine WBC (Auto) Urine Creatinine Urine Total Protein Fluid Total Protein Vancomycin Trough Rheumatoid Factor Complement C4 Miscellaneous Test Crossmatch 10/18/16 10/18/16 10/18/16 05:23 10:46 17:30 WBC RBC Hgb Hct MCV MCH MCHC RDW Plt Count Lymph % (Auto) [place] % (Auto) Lymph # [place] # Baso # Seg Neutrophils % Seg Neuts % (Manual) Lymphocytes % (Manual) Monocytes % (Manual) Eosinophils % (Manual) Basophils % (Manual) Nucleated RBC % Seg Neutrophils # Seg Neutrophils # Man Lymphocytes # (Manual) Monocytes # (Manual) Eosinophils # (Manual) Basophils # (Manual) PT INR Fibrinogen dRVVT Confirm Interp Factor V Activity POC ABG pH POC ABG pCO2 POC ABG pO2 ABG pO2 ABG HCO3 ABG Base Excess ABG Hemoglobin Oxyhemoglobin Sodium Potassium Chloride Carbon Dioxide BUN Creatinine Glucose POC Glucose 119 H 155 H 124 H Lactic Acid Calcium Phosphorus Magnesium Direct Bilirubin AST ALT Alkaline Phosphatase Lactate Dehydrogenase Troponin T C-Reactive Protein Total Protein Albumin Prealbumin Triglycerides Cholesterol LDL Cholesterol Direct HDL Cholesterol Urine pH Urine WBC (Auto) Urine Creatinine Urine Total Protein Fluid Total Protein Vancomycin Trough Rheumatoid Factor Complement C4 Miscellaneous Test Crossmatch 10/19/16 10/19/16 10/19/16 04:00 04:00 05:25 WBC 17.4 H RBC 2.54 L Hgb 7.7 L Hct 23.6 L MCV MCH MCHC RDW 17.3 H Plt Count Lymph % (Auto) [place] % (Auto) Lymph # [place] # Baso # Seg Neutrophils % Seg Neuts % (Manual) Lymphocytes % (Manual) Monocytes % (Manual) Eosinophils % (Manual) Basophils % (Manual) Nucleated RBC % Seg Neutrophils # Seg Neutrophils # Man Lymphocytes # (Manual) Monocytes # (Manual) Eosinophils # (Manual) Basophils # (Manual) PT INR Fibrinogen dRVVT Confirm Interp Factor V Activity POC ABG pH POC ABG pCO2 POC ABG pO2 ABG pO2 ABG HCO3 ABG Base Excess ABG Hemoglobin Oxyhemoglobin Sodium Potassium Chloride Carbon Dioxide BUN 72 H Creatinine 2.1 H Glucose 116 H POC Glucose 119 H Lactic Acid Calcium Phosphorus Magnesium Direct Bilirubin AST ALT Alkaline Phosphatase Lactate Dehydrogenase Troponin T C-Reactive Protein Total Protein Albumin Prealbumin Triglycerides Cholesterol LDL Cholesterol Direct HDL Cholesterol Urine pH Urine WBC (Auto) Urine Creatinine Urine Total Protein Fluid Total Protein Vancomycin Trough Rheumatoid Factor Complement C4 Miscellaneous Test Crossmatch 10/19/16 10/19/16 10/20/16 11:46 23:59 06:00 WBC RBC Hgb Hct MCV MCH MCHC RDW Plt Count Lymph % (Auto) [place] % (Auto) Lymph # [place] # Baso # Seg Neutrophils % Seg Neuts % (Manual) Lymphocytes % (Manual) Monocytes % (Manual) Eosinophils % (Manual) Basophils % (Manual) Nucleated RBC % Seg Neutrophils # Seg Neutrophils # Man Lymphocytes # (Manual) Monocytes # (Manual) Eosinophils # (Manual) Basophils # (Manual) PT INR Fibrinogen dRVVT Confirm Interp Factor V Activity POC ABG pH POC ABG pCO2 POC ABG pO2 ABG pO2 ABG HCO3 ABG Base Excess ABG Hemoglobin Oxyhemoglobin Sodium Potassium Chloride Carbon Dioxide 17 L BUN 94 H Creatinine 2.7 H Glucose POC Glucose 116 H 117 H Lactic Acid Calcium Phosphorus Magnesium Direct Bilirubin AST ALT Alkaline Phosphatase Lactate Dehydrogenase Troponin T C-Reactive Protein Total Protein Albumin Prealbumin Triglycerides Cholesterol LDL Cholesterol Direct HDL Cholesterol Urine pH Urine WBC (Auto) Urine Creatinine Urine Total Protein Fluid Total Protein Vancomycin Trough Rheumatoid Factor Complement C4 Miscellaneous Test Crossmatch 10/20/16 10/20/16 10/20/16 06:00 11:49 16:00 WBC 19.7 H RBC 2.51 L Hgb 7.7 L Hct 23.5 L MCV MCH MCHC RDW 17.5 H Plt Count Lymph % (Auto) [place] % (Auto) Lymph # [place] # Baso # Seg Neutrophils % Seg Neuts % (Manual) Lymphocytes % (Manual) Monocytes % (Manual) Eosinophils % (Manual) Basophils % (Manual) Nucleated RBC % Seg Neutrophils # Seg Neutrophils # Man Lymphocytes # (Manual) Monocytes # (Manual) Eosinophils # (Manual) Basophils # (Manual) PT INR Fibrinogen dRVVT Confirm Interp Factor V Activity POC ABG pH POC ABG pCO2 POC ABG pO2 ABG pO2 ABG HCO3 ABG Base Excess ABG Hemoglobin Oxyhemoglobin Sodium Potassium Chloride Carbon Dioxide BUN Creatinine Glucose POC Glucose 117 H Lactic Acid Calcium Phosphorus Magnesium Direct Bilirubin AST ALT Alkaline Phosphatase Lactate Dehydrogenase Troponin T C-Reactive Protein Total Protein Albumin Prealbumin Triglycerides Cholesterol LDL Cholesterol Direct HDL Cholesterol Urine pH Urine WBC (Auto) Urine Creatinine Urine Total Protein Fluid Total Protein Vancomycin Trough Rheumatoid Factor Complement C4 Miscellaneous Test Flexitest 1 H Crossmatch 10/20/16 10/20/16 10/21/16 18:36 23:39 04:00 WBC RBC Hgb Hct MCV MCH MCHC RDW Plt Count Lymph % (Auto) [place] % (Auto) Lymph # [place] # Baso # Seg Neutrophils % Seg Neuts % (Manual) Lymphocytes % (Manual) Monocytes % (Manual) Eosinophils % (Manual) Basophils % (Manual) Nucleated RBC % Seg Neutrophils # Seg Neutrophils # Man Lymphocytes # (Manual) Monocytes # (Manual) Eosinophils # (Manual) Basophils # (Manual) PT INR Fibrinogen dRVVT Confirm Interp Factor V Activity POC ABG pH POC ABG pCO2 POC ABG pO2 ABG pO2 ABG HCO3 ABG Base Excess ABG Hemoglobin Oxyhemoglobin Sodium Potassium 5.4 H D Chloride Carbon Dioxide 15 L BUN 110 H Creatinine 3.0 H Glucose POC Glucose 127 H 114 H Lactic Acid Calcium Phosphorus Magnesium Direct Bilirubin AST ALT Alkaline Phosphatase Lactate Dehydrogenase Troponin T C-Reactive Protein Total Protein Albumin Prealbumin Triglycerides Cholesterol LDL Cholesterol Direct HDL Cholesterol Urine pH Urine WBC (Auto) Urine Creatinine Urine Total Protein Fluid Total Protein Vancomycin Trough Rheumatoid Factor Complement C4 Miscellaneous Test Crossmatch 10/21/16 10/21/16 10/22/16 05:54 23:46 05:18 WBC RBC Hgb Hct MCV MCH MCHC RDW Plt Count Lymph % (Auto) [place] % (Auto) Lymph # [place] # Baso # Seg Neutrophils % Seg Neuts % (Manual) Lymphocytes % (Manual) Monocytes % (Manual) Eosinophils % (Manual) Basophils % (Manual) Nucleated RBC % Seg Neutrophils # Seg Neutrophils # Man Lymphocytes # (Manual) Monocytes # (Manual) Eosinophils # (Manual) Basophils # (Manual) PT INR Fibrinogen dRVVT Confirm Interp Factor V Activity POC ABG pH POC ABG pCO2 POC ABG pO2 ABG pO2 ABG HCO3 ABG Base Excess ABG Hemoglobin Oxyhemoglobin Sodium Potassium Chloride Carbon Dioxide BUN Creatinine Glucose POC Glucose 119 H 108 H 109 H Lactic Acid Calcium Phosphorus Magnesium Direct Bilirubin AST ALT Alkaline Phosphatase Lactate Dehydrogenase Troponin T C-Reactive Protein Total Protein Albumin Prealbumin Triglycerides Cholesterol LDL Cholesterol Direct HDL Cholesterol Urine pH Urine WBC (Auto) Urine Creatinine Urine Total Protein Fluid Total Protein Vancomycin Trough Rheumatoid Factor Complement C4 Miscellaneous Test Crossmatch 10/22/16 10/22/16 10/22/16 06:40 06:40 06:40 WBC 14.0 H RBC 2.03 L Hgb 7.0 L Hct 20.5 L MCV 98 H MCH 34 H MCHC 35 H RDW 17.8 H Plt Count Lymph % (Auto) [place] % (Auto) 9.9 H Lymph # [place] # 1.4 H Baso # 0.2 H Seg Neutrophils % 72.0 H Seg Neuts % (Manual) Lymphocytes % (Manual) Monocytes % (Manual) Eosinophils % (Manual) Basophils % (Manual) Nucleated RBC % Seg Neutrophils # 10.0 H Seg Neutrophils # Man Lymphocytes # (Manual) Monocytes # (Manual) Eosinophils # (Manual) Basophils # (Manual) PT INR Fibrinogen dRVVT Confirm Interp Factor V Activity POC ABG pH POC ABG pCO2 POC ABG pO2 ABG pO2 ABG HCO3 ABG Base Excess ABG Hemoglobin Oxyhemoglobin Sodium 130 L D Potassium Chloride 92.4 L Carbon Dioxide 20 L BUN 50 H Creatinine 1.6 H Glucose 589 H* POC Glucose Lactic Acid Calcium 7.8 L D Phosphorus Magnesium 1.60 L Direct Bilirubin AST ALT Alkaline Phosphatase Lactate Dehydrogenase Troponin T C-Reactive Protein Total Protein Albumin Prealbumin Triglycerides Cholesterol LDL Cholesterol Direct HDL Cholesterol Urine pH Urine WBC (Auto) Urine Creatinine Urine Total Protein Fluid Total Protein Vancomycin Trough Rheumatoid Factor Complement C4 Miscellaneous Test Crossmatch 10/22/16 10/22/16 10/22/16 11:39 16:44 23:36 WBC RBC Hgb Hct MCV MCH MCHC RDW Plt Count Lymph % (Auto) [place] % (Auto) Lymph # [place] # Baso # Seg Neutrophils % Seg Neuts % (Manual) Lymphocytes % (Manual) Monocytes % (Manual) Eosinophils % (Manual) Basophils % (Manual) Nucleated RBC % Seg Neutrophils # Seg Neutrophils # Man Lymphocytes # (Manual) Monocytes # (Manual) Eosinophils # (Manual) Basophils # (Manual) PT INR Fibrinogen dRVVT Confirm Interp Factor V Activity POC ABG pH POC ABG pCO2 POC ABG pO2 ABG pO2 ABG HCO3 ABG Base Excess ABG Hemoglobin Oxyhemoglobin Sodium Potassium Chloride Carbon Dioxide BUN Creatinine Glucose POC Glucose 142 H 163 H 123 H Lactic Acid Calcium Phosphorus Magnesium Direct Bilirubin AST ALT Alkaline Phosphatase Lactate Dehydrogenase Troponin T C-Reactive Protein Total Protein Albumin Prealbumin Triglycerides Cholesterol LDL Cholesterol Direct HDL Cholesterol Urine pH Urine WBC (Auto) Urine Creatinine Urine Total Protein Fluid Total Protein Vancomycin Trough Rheumatoid Factor Complement C4 Miscellaneous Test Crossmatch 10/23/16 10/23/16 10/23/16 04:58 06:00 12:12 WBC RBC Hgb Hct MCV MCH MCHC RDW Plt Count Lymph % (Auto) [place] % (Auto) Lymph # [place] # Baso # Seg Neutrophils % Seg Neuts % (Manual) Lymphocytes % (Manual) Monocytes % (Manual) Eosinophils % (Manual) Basophils % (Manual) Nucleated RBC % Seg Neutrophils # Seg Neutrophils # Man Lymphocytes # (Manual) Monocytes # (Manual) Eosinophils # (Manual) Basophils # (Manual) PT INR Fibrinogen dRVVT Confirm Interp Factor V Activity POC ABG pH POC ABG pCO2 POC ABG pO2 ABG pO2 ABG HCO3 ABG Base Excess ABG Hemoglobin Oxyhemoglobin Sodium 133 L Potassium 3.5 L Chloride 96.1 L Carbon Dioxide 18 L BUN 76 H Creatinine 2.1 H Glucose POC Glucose 133 H 138 H Lactic Acid Calcium 8.3 L Phosphorus Magnesium Direct Bilirubin AST ALT Alkaline Phosphatase Lactate Dehydrogenase Troponin T C-Reactive Protein Total Protein Albumin Prealbumin Triglycerides Cholesterol LDL Cholesterol Direct HDL Cholesterol Urine pH Urine WBC (Auto) Urine Creatinine Urine Total Protein Fluid Total Protein Vancomycin Trough Rheumatoid Factor Complement C4 Miscellaneous Test Crossmatch 10/23/16 10/23/16 10/24/16 16:53 23:37 04:00 WBC RBC Hgb Hct MCV MCH MCHC RDW Plt Count Lymph % (Auto) [place] % (Auto) Lymph # [place] # Baso # Seg Neutrophils % Seg Neuts % (Manual) Lymphocytes % (Manual) Monocytes % (Manual) Eosinophils % (Manual) Basophils % (Manual) Nucleated RBC % Seg Neutrophils # Seg Neutrophils # Man Lymphocytes # (Manual) Monocytes # (Manual) Eosinophils # (Manual) Basophils # (Manual) PT INR Fibrinogen dRVVT Confirm Interp Factor V Activity POC ABG pH POC ABG pCO2 POC ABG pO2 ABG pO2 ABG HCO3 ABG Base Excess ABG Hemoglobin Oxyhemoglobin Sodium 131 L Potassium Chloride 94.5 L Carbon Dioxide 19 L BUN 97 H Creatinine 2.6 H Glucose 110 H POC Glucose 125 H 123 H Lactic Acid Calcium 8.3 L Phosphorus Magnesium Direct Bilirubin AST ALT Alkaline Phosphatase Lactate Dehydrogenase Troponin T C-Reactive Protein Total Protein Albumin Prealbumin Triglycerides Cholesterol LDL Cholesterol Direct HDL Cholesterol Urine pH Urine WBC (Auto) Urine Creatinine Urine Total Protein Fluid Total Protein Vancomycin Trough Rheumatoid Factor Complement C4 Miscellaneous Test Crossmatch 10/24/16 10/24/16 10/24/16 07:49 11:39 17:52 WBC RBC Hgb 6.0 L Hct 19.7 L* MCV MCH MCHC RDW Plt Count Lymph % (Auto) [place] % (Auto) Lymph # [place] # Baso # Seg Neutrophils % Seg Neuts % (Manual) Lymphocytes % (Manual) Monocytes % (Manual) Eosinophils % (Manual) Basophils % (Manual) Nucleated RBC % Seg Neutrophils # Seg Neutrophils # Man Lymphocytes # (Manual) Monocytes # (Manual) Eosinophils # (Manual) Basophils # (Manual) PT INR Fibrinogen dRVVT Confirm Interp Factor V Activity POC ABG pH POC ABG pCO2 POC ABG pO2 ABG pO2 ABG HCO3 ABG Base Excess ABG Hemoglobin Oxyhemoglobin Sodium Potassium Chloride Carbon Dioxide BUN Creatinine Glucose POC Glucose 106 H 158 H Lactic Acid Calcium Phosphorus Magnesium Direct Bilirubin AST ALT Alkaline Phosphatase Lactate Dehydrogenase Troponin T C-Reactive Protein Total Protein Albumin Prealbumin Triglycerides Cholesterol LDL Cholesterol Direct HDL Cholesterol Urine pH Urine WBC (Auto) Urine Creatinine Urine Total Protein Fluid Total Protein Vancomycin Trough Rheumatoid Factor Complement C4 Miscellaneous Test Crossmatch 10/24/16 10/24/16 10/24/16 20:00 22:27 Unknown WBC RBC Hgb 9.4 L D Hct 27.5 L D MCV MCH MCHC RDW Plt Count Lymph % (Auto) [place] % (Auto) Lymph # [place] # Baso # Seg Neutrophils % Seg Neuts % (Manual) Lymphocytes % (Manual) Monocytes % (Manual) Eosinophils % (Manual) Basophils % (Manual) Nucleated RBC % Seg Neutrophils # Seg Neutrophils # Man Lymphocytes # (Manual) Monocytes # (Manual) Eosinophils # (Manual) Basophils # (Manual) PT INR Fibrinogen dRVVT Confirm Interp Factor V Activity POC ABG pH POC ABG pCO2 POC ABG pO2 ABG pO2 ABG HCO3 ABG Base Excess ABG Hemoglobin Oxyhemoglobin Sodium Potassium Chloride Carbon Dioxide BUN Creatinine Glucose POC Glucose 125 H Lactic Acid Calcium Phosphorus Magnesium Direct Bilirubin AST ALT Alkaline Phosphatase Lactate Dehydrogenase Troponin T C-Reactive Protein Total Protein Albumin Prealbumin Triglycerides Cholesterol LDL Cholesterol Direct HDL Cholesterol Urine pH Urine WBC (Auto) Urine Creatinine Urine Total Protein Fluid Total Protein Vancomycin Trough Rheumatoid Factor Complement C4 Miscellaneous Test Crossmatch See Detail 10/25/16 10/25/16 10/25/16 04:00 04:00 04:00 WBC 14.2 H RBC 2.98 L Hgb 9.0 L Hct 26.2 L MCV MCH MCHC RDW 16.6 H Plt Count Lymph % (Auto) [place] % (Auto) 10.7 H Lymph # [place] # 1.5 H Baso # Seg Neutrophils % 73.6 H Seg Neuts % (Manual) Lymphocytes % (Manual) Monocytes % (Manual) Eosinophils % (Manual) Basophils % (Manual) Nucleated RBC % Seg Neutrophils # 10.5 H Seg Neutrophils # Man Lymphocytes # (Manual) Monocytes # (Manual) Eosinophils # (Manual) Basophils # (Manual) PT INR Fibrinogen dRVVT Confirm Interp Factor V Activity POC ABG pH POC ABG pCO2 POC ABG pO2 ABG pO2 ABG HCO3 ABG Base Excess ABG Hemoglobin Oxyhemoglobin Sodium 132 L Potassium Chloride 94.7 L Carbon Dioxide BUN 51 H Creatinine 1.6 H Glucose 130 H POC Glucose Lactic Acid Calcium 8.3 L Phosphorus 1.60 L D Magnesium Direct Bilirubin AST ALT Alkaline Phosphatase Lactate Dehydrogenase Troponin T C-Reactive Protein Total Protein Albumin Prealbumin Triglycerides Cholesterol LDL Cholesterol Direct HDL Cholesterol Urine pH Urine WBC (Auto) Urine Creatinine Urine Total Protein Fluid Total Protein Vancomycin Trough Rheumatoid Factor Complement C4 Miscellaneous Test Crossmatch 10/25/16 10/25/16 10/25/16 04:32 11:48 17:22 WBC RBC Hgb Hct MCV MCH MCHC RDW Plt Count Lymph % (Auto) [place] % (Auto) Lymph # [place] # Baso # Seg Neutrophils % Seg Neuts % (Manual) Lymphocytes % (Manual) Monocytes % (Manual) Eosinophils % (Manual) Basophils % (Manual) Nucleated RBC % Seg Neutrophils # Seg Neutrophils # Man Lymphocytes # (Manual) Monocytes # (Manual) Eosinophils # (Manual) Basophils # (Manual) PT INR Fibrinogen dRVVT Confirm Interp Factor V Activity POC ABG pH POC ABG pCO2 POC ABG pO2 ABG pO2 ABG HCO3 ABG Base Excess ABG Hemoglobin Oxyhemoglobin Sodium Potassium Chloride Carbon Dioxide BUN Creatinine Glucose POC Glucose 124 H 171 H 120 H Lactic Acid Calcium Phosphorus Magnesium Direct Bilirubin AST ALT Alkaline Phosphatase Lactate Dehydrogenase Troponin T C-Reactive Protein Total Protein Albumin Prealbumin Triglycerides Cholesterol LDL Cholesterol Direct HDL Cholesterol Urine pH Urine WBC (Auto) Urine Creatinine Urine Total Protein Fluid Total Protein Vancomycin Trough Rheumatoid Factor Complement C4 Miscellaneous Test Crossmatch 10/26/16 10/26/16 10/26/16 04:54 07:06 07:06 WBC 16.9 H RBC 3.06 L Hgb 9.1 L Hct 26.9 L MCV MCH MCHC RDW 16.9 H Plt Count Lymph % (Auto) [place] % (Auto) Lymph # [place] # Baso # Seg Neutrophils % Seg Neuts % (Manual) 71.0 H Lymphocytes % (Manual) 5.0 L Monocytes % (Manual) 12.0 H Eosinophils % (Manual) Basophils % (Manual) Nucleated RBC % Seg Neutrophils # Seg Neutrophils # Man 12.0 H Lymphocytes # (Manual) 0.8 L Monocytes # (Manual) 2.0 H Eosinophils # (Manual) Basophils # (Manual) PT INR Fibrinogen dRVVT Confirm Interp Factor V Activity POC ABG pH POC ABG pCO2 POC ABG pO2 ABG pO2 ABG HCO3 ABG Base Excess ABG Hemoglobin Oxyhemoglobin Sodium 135 L Potassium Chloride 97.1 L Carbon Dioxide BUN 73 H Creatinine 2.2 H Glucose 117 H POC Glucose 123 H Lactic Acid Calcium Phosphorus 1.70 L Magnesium Direct Bilirubin AST ALT Alkaline Phosphatase Lactate Dehydrogenase Troponin T C-Reactive Protein Total Protein Albumin Prealbumin Triglycerides Cholesterol LDL Cholesterol Direct HDL Cholesterol Urine pH Urine WBC (Auto) Urine Creatinine Urine Total Protein Fluid Total Protein Vancomycin Trough Rheumatoid Factor Complement C4 Miscellaneous Test Crossmatch 10/26/16 10/26/16 10/26/16 12:12 17:29 23:42 WBC RBC Hgb Hct MCV MCH MCHC RDW Plt Count Lymph % (Auto) [place] % (Auto) Lymph # [place] # Baso # Seg Neutrophils % Seg Neuts % (Manual) Lymphocytes % (Manual) Monocytes % (Manual) Eosinophils % (Manual) Basophils % (Manual) Nucleated RBC % Seg Neutrophils # Seg Neutrophils # Man Lymphocytes # (Manual) Monocytes # (Manual) Eosinophils # (Manual) Basophils # (Manual) PT INR Fibrinogen dRVVT Confirm Interp Factor V Activity POC ABG pH POC ABG pCO2 POC ABG pO2 ABG pO2 ABG HCO3 ABG Base Excess ABG Hemoglobin Oxyhemoglobin Sodium Potassium Chloride Carbon Dioxide BUN Creatinine Glucose POC Glucose 126 H 161 H 118 H Lactic Acid Calcium Phosphorus Magnesium Direct Bilirubin AST ALT Alkaline Phosphatase Lactate Dehydrogenase Troponin T C-Reactive Protein Total Protein Albumin Prealbumin Triglycerides Cholesterol LDL Cholesterol Direct HDL Cholesterol Urine pH Urine WBC (Auto) Urine Creatinine Urine Total Protein Fluid Total Protein Vancomycin Trough Rheumatoid Factor Complement C4 Miscellaneous Test Crossmatch 10/27/16 10/27/16 10/27/16 05:03 06:30 06:30 WBC 13.9 H RBC 3.09 L Hgb 9.2 L Hct 27.5 L MCV MCH MCHC RDW 17.0 H Plt Count Lymph % (Auto) [place] % (Auto) Lymph # [place] # Baso # Seg Neutrophils % Seg Neuts % (Manual) 78.0 H Lymphocytes % (Manual) Monocytes % (Manual) Eosinophils % (Manual) Basophils % (Manual) Nucleated RBC % 2.0 H Seg Neutrophils # Seg Neutrophils # Man 10.8 H Lymphocytes # (Manual) Monocytes # (Manual) 1.0 H Eosinophils # (Manual) Basophils # (Manual) PT INR Fibrinogen dRVVT Confirm Interp Factor V Activity POC ABG pH POC ABG pCO2 POC ABG pO2 ABG pO2 ABG HCO3 ABG Base Excess ABG Hemoglobin Oxyhemoglobin Sodium Potassium Chloride Carbon Dioxide BUN 40 H Creatinine 1.5 H Glucose 135 H POC Glucose 107 H Lactic Acid Calcium 8.3 L Phosphorus 1.30 L D Magnesium Direct Bilirubin AST ALT Alkaline Phosphatase Lactate Dehydrogenase Troponin T C-Reactive Protein Total Protein Albumin Prealbumin Triglycerides Cholesterol LDL Cholesterol Direct HDL Cholesterol Urine pH Urine WBC (Auto) Urine Creatinine Urine Total Protein Fluid Total Protein Vancomycin Trough Rheumatoid Factor Complement C4 Miscellaneous Test Crossmatch 10/27/16 10/27/16 10/27/16 13:27 18:07 23:40 WBC RBC Hgb Hct MCV MCH MCHC RDW Plt Count Lymph % (Auto) [place] % (Auto) Lymph # [place] # Baso # Seg Neutrophils % Seg Neuts % (Manual) Lymphocytes % (Manual) Monocytes % (Manual) Eosinophils % (Manual) Basophils % (Manual) Nucleated RBC % Seg Neutrophils # Seg Neutrophils # Man Lymphocytes # (Manual) Monocytes # (Manual) Eosinophils # (Manual) Basophils # (Manual) PT INR Fibrinogen dRVVT Confirm Interp Factor V Activity POC ABG pH POC ABG pCO2 POC ABG pO2 ABG pO2 ABG HCO3 ABG Base Excess ABG Hemoglobin Oxyhemoglobin Sodium Potassium Chloride Carbon Dioxide BUN Creatinine Glucose POC Glucose 117 H 121 H 118 H Lactic Acid Calcium Phosphorus Magnesium Direct Bilirubin AST ALT Alkaline Phosphatase Lactate Dehydrogenase Troponin T C-Reactive Protein Total Protein Albumin Prealbumin Triglycerides Cholesterol LDL Cholesterol Direct HDL Cholesterol Urine pH Urine WBC (Auto) Urine Creatinine Urine Total Protein Fluid Total Protein Vancomycin Trough Rheumatoid Factor Complement C4 Miscellaneous Test Crossmatch 10/28/16 10/28/16 10/28/16 05:48 06:45 06:45 WBC 14.7 H RBC 3.05 L Hgb 9.0 L Hct 26.9 L MCV MCH MCHC RDW 16.8 H Plt Count Lymph % (Auto) 8.2 L [place] % (Auto) 8.4 H Lymph # [place] # 1.2 H Baso # Seg Neutrophils % 81.9 H Seg Neuts % (Manual) Lymphocytes % (Manual) Monocytes % (Manual) Eosinophils % (Manual) Basophils % (Manual) Nucleated RBC % Seg Neutrophils # 12.1 H Seg Neutrophils # Man Lymphocytes # (Manual) Monocytes # (Manual) Eosinophils # (Manual) Basophils # (Manual) PT INR Fibrinogen dRVVT Confirm Interp Factor V Activity POC ABG pH POC ABG pCO2 POC ABG pO2 ABG pO2 ABG HCO3 ABG Base Excess ABG Hemoglobin Oxyhemoglobin Sodium Potassium Chloride Carbon Dioxide BUN 60 H Creatinine 1.9 H Glucose 120 H POC Glucose 114 H Lactic Acid Calcium Phosphorus Magnesium Direct Bilirubin AST ALT Alkaline Phosphatase Lactate Dehydrogenase Troponin T C-Reactive Protein Total Protein Albumin Prealbumin Triglycerides Cholesterol LDL Cholesterol Direct HDL Cholesterol Urine pH Urine WBC (Auto) Urine Creatinine Urine Total Protein Fluid Total Protein Vancomycin Trough Rheumatoid Factor Complement C4 Miscellaneous Test Crossmatch 10/28/16 10/28/16 10/29/16 17:08 23:50 05:10 WBC RBC Hgb Hct MCV MCH MCHC RDW Plt Count Lymph % (Auto) [place] % (Auto) Lymph # [place] # Baso # Seg Neutrophils % Seg Neuts % (Manual) Lymphocytes % (Manual) Monocytes % (Manual) Eosinophils % (Manual) Basophils % (Manual) Nucleated RBC % Seg Neutrophils # Seg Neutrophils # Man Lymphocytes # (Manual) Monocytes # (Manual) Eosinophils # (Manual) Basophils # (Manual) PT INR Fibrinogen dRVVT Confirm Interp Factor V Activity POC ABG pH POC ABG pCO2 POC ABG pO2 ABG pO2 ABG HCO3 ABG Base Excess ABG Hemoglobin Oxyhemoglobin Sodium Potassium Chloride Carbon Dioxide BUN Creatinine Glucose POC Glucose 109 H 110 H 124 H Lactic Acid Calcium Phosphorus Magnesium Direct Bilirubin AST ALT Alkaline Phosphatase Lactate Dehydrogenase Troponin T C-Reactive Protein Total Protein Albumin Prealbumin Triglycerides Cholesterol LDL Cholesterol Direct HDL Cholesterol Urine pH Urine WBC (Auto) Urine Creatinine Urine Total Protein Fluid Total Protein Vancomycin Trough Rheumatoid Factor Complement C4 Miscellaneous Test Crossmatch 10/29/16 10/29/16 10/29/16 07:45 07:45 12:19 WBC 14.7 H RBC 3.15 L Hgb 9.3 L Hct 28.9 L MCV MCH MCHC RDW 17.0 H Plt Count Lymph % (Auto) 11.9 L [place] % (Auto) 8.6 H Lymph # [place] # 1.3 H Baso # Seg Neutrophils % 78.1 H Seg Neuts % (Manual) Lymphocytes % (Manual) Monocytes % (Manual) Eosinophils % (Manual) Basophils % (Manual) Nucleated RBC % Seg Neutrophils # 11.4 H Seg Neutrophils # Man Lymphocytes # (Manual) Monocytes # (Manual) Eosinophils # (Manual) Basophils # (Manual) PT INR Fibrinogen dRVVT Confirm Interp Factor V Activity POC ABG pH POC ABG pCO2 POC ABG pO2 ABG pO2 ABG HCO3 ABG Base Excess ABG Hemoglobin Oxyhemoglobin Sodium Potassium 5.1 H Chloride Carbon Dioxide 19 L BUN 78 H Creatinine 2.2 H Glucose 116 H POC Glucose 118 H Lactic Acid Calcium Phosphorus Magnesium Direct Bilirubin AST ALT Alkaline Phosphatase Lactate Dehydrogenase Troponin T C-Reactive Protein Total Protein Albumin Prealbumin Triglycerides Cholesterol LDL Cholesterol Direct HDL Cholesterol Urine pH Urine WBC (Auto) Urine Creatinine Urine Total Protein Fluid Total Protein Vancomycin Trough Rheumatoid Factor Complement C4 Miscellaneous Test Crossmatch 10/29/16 10/30/16 10/30/16 17:49 01:52 03:28 WBC RBC Hgb Hct MCV MCH MCHC RDW Plt Count Lymph % (Auto) [place] % (Auto) Lymph # [place] # Baso # Seg Neutrophils % Seg Neuts % (Manual) Lymphocytes % (Manual) Monocytes % (Manual) Eosinophils % (Manual) Basophils % (Manual) Nucleated RBC % Seg Neutrophils # Seg Neutrophils # Man Lymphocytes # (Manual) Monocytes # (Manual) Eosinophils # (Manual) Basophils # (Manual) PT INR Fibrinogen dRVVT Confirm Interp Factor V Activity POC ABG pH POC ABG pCO2 POC ABG pO2 ABG pO2 ABG HCO3 ABG Base Excess ABG Hemoglobin Oxyhemoglobin Sodium Potassium 5.4 H Chloride 97.5 L Carbon Dioxide 19 L BUN 90 H Creatinine 2.5 H Glucose POC Glucose 120 H 129 H Lactic Acid Calcium Phosphorus 5.20 H Magnesium Direct Bilirubin AST ALT Alkaline Phosphatase Lactate Dehydrogenase Troponin T C-Reactive Protein Total Protein Albumin Prealbumin Triglycerides Cholesterol LDL Cholesterol Direct HDL Cholesterol Urine pH Urine WBC (Auto) Urine Creatinine Urine Total Protein Fluid Total Protein Vancomycin Trough Rheumatoid Factor Complement C4 Miscellaneous Test Crossmatch 10/30/16 10/30/16 10/30/16 03:28 08:19 08:19 WBC 11.6 H 15.9 H RBC 2.75 L 2.82 L Hgb 7.9 L 8.3 L Hct 24.2 L 25.2 L MCV MCH MCHC RDW 16.7 H 17.2 H Plt Count Lymph % (Auto) [place] % (Auto) 9.8 H Lymph # [place] # 1.1 H Baso # Seg Neutrophils % 74.2 H Seg Neuts % (Manual) Lymphocytes % (Manual) Monocytes % (Manual) Eosinophils % (Manual) Basophils % (Manual) Nucleated RBC % Seg Neutrophils # 8.6 H Seg Neutrophils # Man Lymphocytes # (Manual) Monocytes # (Manual) Eosinophils # (Manual) Basophils # (Manual) PT INR Fibrinogen dRVVT Confirm Interp Factor V Activity POC ABG pH POC ABG pCO2 POC ABG pO2 ABG pO2 ABG HCO3 ABG Base Excess ABG Hemoglobin Oxyhemoglobin Sodium Potassium 5.3 H Chloride 97.4 L Carbon Dioxide 19 L BUN 93 H Creatinine 2.6 H Glucose POC Glucose Lactic Acid Calcium Phosphorus Magnesium Direct Bilirubin AST ALT Alkaline Phosphatase Lactate Dehydrogenase Troponin T C-Reactive Protein Total Protein Albumin Prealbumin Triglycerides Cholesterol LDL Cholesterol Direct HDL Cholesterol Urine pH Urine WBC (Auto) Urine Creatinine Urine Total Protein Fluid Total Protein Vancomycin Trough Rheumatoid Factor Complement C4 Miscellaneous Test Crossmatch 10/30/16 10/30/16 10/31/16 17:11 23:56 00:40 WBC RBC Hgb Hct MCV MCH MCHC RDW Plt Count Lymph % (Auto) [place] % (Auto) Lymph # [place] # Baso # Seg Neutrophils % Seg Neuts % (Manual) Lymphocytes % (Manual) Monocytes % (Manual) Eosinophils % (Manual) Basophils % (Manual) Nucleated RBC % Seg Neutrophils # Seg Neutrophils # Man Lymphocytes # (Manual) Monocytes # (Manual) Eosinophils # (Manual) Basophils # (Manual) PT INR Fibrinogen dRVVT Confirm Interp Factor V Activity POC ABG pH POC ABG pCO2 POC ABG pO2 ABG pO2 ABG HCO3 ABG Base Excess ABG Hemoglobin Oxyhemoglobin Sodium Potassium Chloride Carbon Dioxide BUN Creatinine Glucose POC Glucose 106 H 117 H 120 H Lactic Acid Calcium Phosphorus Magnesium Direct Bilirubin AST ALT Alkaline Phosphatase Lactate Dehydrogenase Troponin T C-Reactive Protein Total Protein Albumin Prealbumin Triglycerides Cholesterol LDL Cholesterol Direct HDL Cholesterol Urine pH Urine WBC (Auto) Urine Creatinine Urine Total Protein Fluid Total Protein Vancomycin Trough Rheumatoid Factor Complement C4 Miscellaneous Test Crossmatch 10/31/16 10/31/16 10/31/16 05:43 07:15 07:15 WBC 12.1 H RBC 2.63 L Hgb 7.7 L Hct 23.3 L MCV MCH MCHC RDW 16.7 H Plt Count Lymph % (Auto) 11.7 L [place] % (Auto) 7.7 H Lymph # [place] # 0.9 H Baso # Seg Neutrophils % 78.0 H Seg Neuts % (Manual) Lymphocytes % (Manual) Monocytes % (Manual) Eosinophils % (Manual) Basophils % (Manual) Nucleated RBC % Seg Neutrophils # 9.4 H Seg Neutrophils # Man Lymphocytes # (Manual) Monocytes # (Manual) Eosinophils # (Manual) Basophils # (Manual) PT INR Fibrinogen dRVVT Confirm Interp Factor V Activity POC ABG pH POC ABG pCO2 POC ABG pO2 ABG pO2 ABG HCO3 ABG Base Excess ABG Hemoglobin Oxyhemoglobin Sodium Potassium Chloride 96.4 L Carbon Dioxide 21 L BUN 99 H Creatinine 2.6 H Glucose 144 H POC Glucose 125 H Lactic Acid Calcium Phosphorus 4.80 H Magnesium Direct Bilirubin AST ALT Alkaline Phosphatase Lactate Dehydrogenase Troponin T C-Reactive Protein Total Protein Albumin Prealbumin Triglycerides Cholesterol LDL Cholesterol Direct HDL Cholesterol Urine pH Urine WBC (Auto) Urine Creatinine Urine Total Protein Fluid Total Protein Vancomycin Trough Rheumatoid Factor Complement C4 Miscellaneous Test Crossmatch 10/31/16 10/31/16 11/01/16 11:46 18:34 00:20 WBC RBC Hgb Hct MCV MCH MCHC RDW Plt Count Lymph % (Auto) [place] % (Auto) Lymph # [place] # Baso # Seg Neutrophils % Seg Neuts % (Manual) Lymphocytes % (Manual) Monocytes % (Manual) Eosinophils % (Manual) Basophils % (Manual) Nucleated RBC % Seg Neutrophils # Seg Neutrophils # Man Lymphocytes # (Manual) Monocytes # (Manual) Eosinophils # (Manual) Basophils # (Manual) PT INR Fibrinogen dRVVT Confirm Interp Factor V Activity POC ABG pH POC ABG pCO2 POC ABG pO2 ABG pO2 ABG HCO3 ABG Base Excess ABG Hemoglobin Oxyhemoglobin Sodium Potassium Chloride Carbon Dioxide BUN Creatinine Glucose POC Glucose 159 H 140 H 132 H Lactic Acid Calcium Phosphorus Magnesium Direct Bilirubin AST ALT Alkaline Phosphatase Lactate Dehydrogenase Troponin T C-Reactive Protein Total Protein Albumin Prealbumin Triglycerides Cholesterol LDL Cholesterol Direct HDL Cholesterol Urine pH Urine WBC (Auto) Urine Creatinine Urine Total Protein Fluid Total Protein Vancomycin Trough Rheumatoid Factor Complement C4 Miscellaneous Test Crossmatch 11/01/16 11/01/16 11/01/16 04:55 04:55 06:11 WBC 11.2 H RBC 2.68 L Hgb 7.5 L Hct 23.7 L MCV MCH MCHC RDW 16.1 H Plt Count Lymph % (Auto) [place] % (Auto) 9.8 H Lymph # [place] # 1.1 H Baso # Seg Neutrophils % 70.8 H Seg Neuts % (Manual) Lymphocytes % (Manual) Monocytes % (Manual) Eosinophils % (Manual) Basophils % (Manual) Nucleated RBC % Seg Neutrophils # 7.9 H Seg Neutrophils # Man Lymphocytes # (Manual) Monocytes # (Manual) Eosinophils # (Manual) Basophils # (Manual) PT INR Fibrinogen dRVVT Confirm Interp Factor V Activity POC ABG pH POC ABG pCO2 POC ABG pO2 ABG pO2 ABG HCO3 ABG Base Excess ABG Hemoglobin Oxyhemoglobin Sodium Potassium 3.3 L D Chloride Carbon Dioxide BUN 61 H Creatinine 1.9 H Glucose 114 H POC Glucose 115 H Lactic Acid Calcium Phosphorus 1.80 L D Magnesium Direct Bilirubin AST ALT Alkaline Phosphatase Lactate Dehydrogenase Troponin T C-Reactive Protein Total Protein Albumin Prealbumin Triglycerides Cholesterol LDL Cholesterol Direct HDL Cholesterol Urine pH Urine WBC (Auto) Urine Creatinine Urine Total Protein Fluid Total Protein Vancomycin Trough Rheumatoid Factor Complement C4 Miscellaneous Test Crossmatch 11/01/16 11/01/16 11/01/16 12:29 18:23 23:58 WBC RBC Hgb Hct MCV MCH MCHC RDW Plt Count Lymph % (Auto) [place] % (Auto) Lymph # [place] # Baso # Seg Neutrophils % Seg Neuts % (Manual) Lymphocytes % (Manual) Monocytes % (Manual) Eosinophils % (Manual) Basophils % (Manual) Nucleated RBC % Seg Neutrophils # Seg Neutrophils # Man Lymphocytes # (Manual) Monocytes # (Manual) Eosinophils # (Manual) Basophils # (Manual) PT INR Fibrinogen dRVVT Confirm Interp Factor V Activity POC ABG pH POC ABG pCO2 POC ABG pO2 ABG pO2 ABG HCO3 ABG Base Excess ABG Hemoglobin Oxyhemoglobin Sodium Potassium Chloride Carbon Dioxide BUN Creatinine Glucose POC Glucose 142 H 143 H 128 H Lactic Acid Calcium Phosphorus Magnesium Direct Bilirubin AST ALT Alkaline Phosphatase Lactate Dehydrogenase Troponin T C-Reactive Protein Total Protein Albumin Prealbumin Triglycerides Cholesterol LDL Cholesterol Direct HDL Cholesterol Urine pH Urine WBC (Auto) Urine Creatinine Urine Total Protein Fluid Total Protein Vancomycin Trough Rheumatoid Factor Complement C4 Miscellaneous Test Crossmatch 11/02/16 11/02/16 11/02/16 04:16 05:29 11:58 WBC RBC Hgb Hct MCV MCH MCHC RDW Plt Count Lymph % (Auto) [place] % (Auto) Lymph # [place] # Baso # Seg Neutrophils % Seg Neuts % (Manual) Lymphocytes % (Manual) Monocytes % (Manual) Eosinophils % (Manual) Basophils % (Manual) Nucleated RBC % Seg Neutrophils # Seg Neutrophils # Man Lymphocytes # (Manual) Monocytes # (Manual) Eosinophils # (Manual) Basophils # (Manual) PT INR Fibrinogen dRVVT Confirm Interp Factor V Activity POC ABG pH POC ABG pCO2 POC ABG pO2 ABG pO2 ABG HCO3 ABG Base Excess ABG Hemoglobin Oxyhemoglobin Sodium Potassium 3.1 L Chloride Carbon Dioxide BUN 73 H Creatinine 2.3 H Glucose 112 H POC Glucose 135 H 149 H Lactic Acid Calcium Phosphorus Magnesium Direct Bilirubin AST ALT Alkaline Phosphatase Lactate Dehydrogenase Troponin T C-Reactive Protein Total Protein Albumin Prealbumin Triglycerides Cholesterol LDL Cholesterol Direct HDL Cholesterol Urine pH Urine WBC (Auto) Urine Creatinine Urine Total Protein Fluid Total Protein Vancomycin Trough Rheumatoid Factor Complement C4 Miscellaneous Test Crossmatch 11/02/16 11/02/16 11/03/16 17:42 22:54 06:00 WBC RBC Hgb Hct MCV MCH MCHC RDW Plt Count Lymph % (Auto) [place] % (Auto) Lymph # [place] # Baso # Seg Neutrophils % Seg Neuts % (Manual) Lymphocytes % (Manual) Monocytes % (Manual) Eosinophils % (Manual) Basophils % (Manual) Nucleated RBC % Seg Neutrophils # Seg Neutrophils # Man Lymphocytes # (Manual) Monocytes # (Manual) Eosinophils # (Manual) Basophils # (Manual) PT INR Fibrinogen dRVVT Confirm Interp Factor V Activity POC ABG pH POC ABG pCO2 POC ABG pO2 ABG pO2 ABG HCO3 ABG Base Excess ABG Hemoglobin Oxyhemoglobin Sodium Potassium Chloride 96.7 L Carbon Dioxide BUN 41 H Creatinine 1.5 H Glucose 145 H POC Glucose 182 H 115 H Lactic Acid Calcium Phosphorus 1.60 L D Magnesium 1.50 L Direct Bilirubin AST ALT Alkaline Phosphatase Lactate Dehydrogenase Troponin T C-Reactive Protein Total Protein Albumin Prealbumin Triglycerides Cholesterol LDL Cholesterol Direct HDL Cholesterol Urine pH Urine WBC (Auto) Urine Creatinine Urine Total Protein Fluid Total Protein Vancomycin Trough Rheumatoid Factor Complement C4 Miscellaneous Test Crossmatch 11/03/16 11/03/16 11/03/16 11:53 17:45 23:37 WBC RBC Hgb Hct MCV MCH MCHC RDW Plt Count Lymph % (Auto) [place] % (Auto) Lymph # [place] # Baso # Seg Neutrophils % Seg Neuts % (Manual) Lymphocytes % (Manual) Monocytes % (Manual) Eosinophils % (Manual) Basophils % (Manual) Nucleated RBC % Seg Neutrophils # Seg Neutrophils # Man Lymphocytes # (Manual) Monocytes # (Manual) Eosinophils # (Manual) Basophils # (Manual) PT INR Fibrinogen dRVVT Confirm Interp Factor V Activity POC ABG pH POC ABG pCO2 POC ABG pO2 ABG pO2 ABG HCO3 ABG Base Excess ABG Hemoglobin Oxyhemoglobin Sodium Potassium Chloride Carbon Dioxide BUN Creatinine Glucose POC Glucose 131 H 134 H 113 H Lactic Acid Calcium Phosphorus Magnesium Direct Bilirubin AST ALT Alkaline Phosphatase Lactate Dehydrogenase Troponin T C-Reactive Protein Total Protein Albumin Prealbumin Triglycerides Cholesterol LDL Cholesterol Direct HDL Cholesterol Urine pH Urine WBC (Auto) Urine Creatinine Urine Total Protein Fluid Total Protein Vancomycin Trough Rheumatoid Factor Complement C4 Miscellaneous Test Crossmatch 11/04/16 11/04/16 11/04/16 05:41 06:00 12:10 WBC RBC Hgb Hct MCV MCH MCHC RDW Plt Count Lymph % (Auto) [place] % (Auto) Lymph # [place] # Baso # Seg Neutrophils % Seg Neuts % (Manual) Lymphocytes % (Manual) Monocytes % (Manual) Eosinophils % (Manual) Basophils % (Manual) Nucleated RBC % Seg Neutrophils # Seg Neutrophils # Man Lymphocytes # (Manual) Monocytes # (Manual) Eosinophils # (Manual) Basophils # (Manual) PT INR Fibrinogen dRVVT Confirm Interp Factor V Activity POC ABG pH POC ABG pCO2 POC ABG pO2 ABG pO2 ABG HCO3 ABG Base Excess ABG Hemoglobin Oxyhemoglobin Sodium Potassium Chloride 96.7 L Carbon Dioxide BUN 52 H Creatinine 1.9 H Glucose 126 H POC Glucose 137 H 191 H Lactic Acid Calcium Phosphorus Magnesium Direct Bilirubin AST ALT Alkaline Phosphatase Lactate Dehydrogenase Troponin T C-Reactive Protein Total Protein Albumin Prealbumin Triglycerides Cholesterol LDL Cholesterol Direct HDL Cholesterol Urine pH Urine WBC (Auto) Urine Creatinine Urine Total Protein Fluid Total Protein Vancomycin Trough Rheumatoid Factor Complement C4 Miscellaneous Test Crossmatch 11/04/16 11/05/16 11/05/16 22:57 03:10 05:10 WBC RBC Hgb Hct MCV MCH MCHC RDW Plt Count Lymph % (Auto) [place] % (Auto) Lymph # [place] # Baso # Seg Neutrophils % Seg Neuts % (Manual) Lymphocytes % (Manual) Monocytes % (Manual) Eosinophils % (Manual) Basophils % (Manual) Nucleated RBC % Seg Neutrophils # Seg Neutrophils # Man Lymphocytes # (Manual) Monocytes # (Manual) Eosinophils # (Manual) Basophils # (Manual) PT INR Fibrinogen dRVVT Confirm Interp Factor V Activity POC ABG pH POC ABG pCO2 POC ABG pO2 ABG pO2 ABG HCO3 ABG Base Excess ABG Hemoglobin Oxyhemoglobin Sodium 136 L Potassium Chloride 97.2 L Carbon Dioxide BUN 32 H Creatinine 1.3 H Glucose 123 H POC Glucose 125 H 108 H Lactic Acid Calcium 7.8 L Phosphorus Magnesium Direct Bilirubin AST ALT Alkaline Phosphatase Lactate Dehydrogenase Troponin T C-Reactive Protein Total Protein Albumin Prealbumin Triglycerides Cholesterol LDL Cholesterol Direct HDL Cholesterol Urine pH Urine WBC (Auto) Urine Creatinine Urine Total Protein Fluid Total Protein Vancomycin Trough Rheumatoid Factor Complement C4 Miscellaneous Test Crossmatch 11/05/16 11/05/16 11/05/16 12:23 13:09 13:25 WBC RBC Hgb Hct MCV MCH MCHC RDW Plt Count Lymph % (Auto) [place] % (Auto) Lymph # [place] # Baso # Seg Neutrophils % Seg Neuts % (Manual) Lymphocytes % (Manual) Monocytes % (Manual) Eosinophils % (Manual) Basophils % (Manual) Nucleated RBC % Seg Neutrophils # Seg Neutrophils # Man Lymphocytes # (Manual) Monocytes # (Manual) Eosinophils # (Manual) Basophils # (Manual) PT INR Fibrinogen dRVVT Confirm Interp Factor V Activity POC ABG pH POC ABG pCO2 POC ABG pO2 ABG pO2 ABG HCO3 ABG Base Excess ABG Hemoglobin Oxyhemoglobin Sodium Potassium Chloride Carbon Dioxide BUN Creatinine Glucose POC Glucose 124 H Lactic Acid Calcium Phosphorus Magnesium Direct Bilirubin AST ALT Alkaline Phosphatase Lactate Dehydrogenase Troponin T C-Reactive Protein 11.40 H Total Protein Albumin Prealbumin Triglycerides Cholesterol LDL Cholesterol Direct HDL Cholesterol Urine pH 9.0 H Urine WBC (Auto) Urine Creatinine Urine Total Protein Fluid Total Protein Vancomycin Trough Rheumatoid Factor Complement C4 Miscellaneous Test Crossmatch 11/05/16 11/05/16 11/05/16 13:25 17:54 23:42 WBC RBC Hgb Hct MCV MCH MCHC RDW Plt Count Lymph % (Auto) [place] % (Auto) Lymph # [place] # Baso # Seg Neutrophils % Seg Neuts % (Manual) Lymphocytes % (Manual) Monocytes % (Manual) Eosinophils % (Manual) Basophils % (Manual) Nucleated RBC % Seg Neutrophils # Seg Neutrophils # Man Lymphocytes # (Manual) Monocytes # (Manual) Eosinophils # (Manual) Basophils # (Manual) PT INR Fibrinogen dRVVT Confirm Interp Factor V Activity POC ABG pH POC ABG pCO2 POC ABG pO2 ABG pO2 ABG HCO3 ABG Base Excess ABG Hemoglobin Oxyhemoglobin Sodium Potassium Chloride Carbon Dioxide BUN Creatinine Glucose POC Glucose 114 H 134 H Lactic Acid Calcium Phosphorus Magnesium Direct Bilirubin AST ALT Alkaline Phosphatase Lactate Dehydrogenase Troponin T C-Reactive Protein Total Protein Albumin Prealbumin Triglycerides Cholesterol LDL Cholesterol Direct HDL Cholesterol Urine pH Urine WBC (Auto) Urine Creatinine Urine Total Protein Fluid Total Protein Vancomycin Trough Rheumatoid Factor Complement C4 Miscellaneous Test Flexitest 1 H Crossmatch 11/06/16 11/06/16 11/06/16 04:56 06:25 06:25 WBC RBC 2.50 L Hgb 7.3 L Hct 22.5 L MCV MCH MCHC RDW 16.9 H Plt Count Lymph % (Auto) [place] % (Auto) 10.5 H Lymph # [place] # 1.1 H Baso # Seg Neutrophils % Seg Neuts % (Manual) Lymphocytes % (Manual) Monocytes % (Manual) Eosinophils % (Manual) Basophils % (Manual) Nucleated RBC % Seg Neutrophils # Seg Neutrophils # Man Lymphocytes # (Manual) Monocytes # (Manual) Eosinophils # (Manual) Basophils # (Manual) PT INR Fibrinogen dRVVT Confirm Interp Factor V Activity POC ABG pH POC ABG pCO2 POC ABG pO2 ABG pO2 ABG HCO3 ABG Base Excess ABG Hemoglobin Oxyhemoglobin Sodium Potassium 5.1 H Chloride 95.9 L Carbon Dioxide BUN 52 H Creatinine 1.8 H Glucose 117 H POC Glucose 120 H Lactic Acid Calcium Phosphorus Magnesium Direct Bilirubin AST 103 H ALT 77 H Alkaline Phosphatase 285 H Lactate Dehydrogenase Troponin T C-Reactive Protein Total Protein 6.2 L Albumin 1.8 L Prealbumin 0.180 L Triglycerides Cholesterol LDL Cholesterol Direct HDL Cholesterol Urine pH Urine WBC (Auto) Urine Creatinine Urine Total Protein Fluid Total Protein Vancomycin Trough Rheumatoid Factor Complement C4 Miscellaneous Test Crossmatch 11/06/16 11/06/16 11/06/16 11:56 17:14 23:52 WBC RBC Hgb Hct MCV MCH MCHC RDW Plt Count Lymph % (Auto) [place] % (Auto) Lymph # [place] # Baso # Seg Neutrophils % Seg Neuts % (Manual) Lymphocytes % (Manual) Monocytes % (Manual) Eosinophils % (Manual) Basophils % (Manual) Nucleated RBC % Seg Neutrophils # Seg Neutrophils # Man Lymphocytes # (Manual) Monocytes # (Manual) Eosinophils # (Manual) Basophils # (Manual) PT INR Fibrinogen dRVVT Confirm Interp Factor V Activity POC ABG pH POC ABG pCO2 POC ABG pO2 ABG pO2 ABG HCO3 ABG Base Excess ABG Hemoglobin Oxyhemoglobin Sodium Potassium Chloride Carbon Dioxide BUN Creatinine Glucose POC Glucose 141 H 125 H 130 H Lactic Acid Calcium Phosphorus Magnesium Direct Bilirubin AST ALT Alkaline Phosphatase Lactate Dehydrogenase Troponin T C-Reactive Protein Total Protein Albumin Prealbumin Triglycerides Cholesterol LDL Cholesterol Direct HDL Cholesterol Urine pH Urine WBC (Auto) Urine Creatinine Urine Total Protein Fluid Total Protein Vancomycin Trough Rheumatoid Factor Complement C4 Miscellaneous Test Crossmatch 11/07/16 11/07/16 11/07/16 06:30 06:30 09:37 WBC RBC 2.18 L Hgb 6.3 L Hct 19.7 L* MCV MCH MCHC RDW 16.8 H Plt Count Lymph % (Auto) [place] % (Auto) 10.0 H Lymph # [place] # 1.0 H Baso # Seg Neutrophils % Seg Neuts % (Manual) Lymphocytes % (Manual) Monocytes % (Manual) Eosinophils % (Manual) Basophils % (Manual) Nucleated RBC % Seg Neutrophils # Seg Neutrophils # Man Lymphocytes # (Manual) Monocytes # (Manual) Eosinophils # (Manual) Basophils # (Manual) PT INR Fibrinogen dRVVT Confirm Interp Factor V Activity POC ABG pH POC ABG pCO2 POC ABG pO2 ABG pO2 ABG HCO3 ABG Base Excess ABG Hemoglobin Oxyhemoglobin Sodium 135 L Potassium Chloride 95.6 L Carbon Dioxide BUN 70 H Creatinine 2.0 H Glucose 126 H POC Glucose Lactic Acid Calcium Phosphorus Magnesium Direct Bilirubin AST ALT Alkaline Phosphatase Lactate Dehydrogenase Troponin T C-Reactive Protein Total Protein Albumin Prealbumin Triglycerides Cholesterol LDL Cholesterol Direct HDL Cholesterol Urine pH Urine WBC (Auto) Urine Creatinine Urine Total Protein Fluid Total Protein Vancomycin Trough Rheumatoid Factor Complement C4 Miscellaneous Test Crossmatch See Detail 11/07/16 11/07/16 11/07/16 12:52 18:51 21:26 WBC RBC Hgb Hct MCV MCH MCHC RDW Plt Count Lymph % (Auto) [place] % (Auto) Lymph # [place] # Baso # Seg Neutrophils % Seg Neuts % (Manual) Lymphocytes % (Manual) Monocytes % (Manual) Eosinophils % (Manual) Basophils % (Manual) Nucleated RBC % Seg Neutrophils # Seg Neutrophils # Man Lymphocytes # (Manual) Monocytes # (Manual) Eosinophils # (Manual) Basophils # (Manual) PT INR Fibrinogen dRVVT Confirm Interp Factor V Activity POC ABG pH 7.523 H POC ABG pCO2 34.6 L POC ABG pO2 53 L ABG pO2 ABG HCO3 ABG Base Excess ABG Hemoglobin Oxyhemoglobin Sodium Potassium Chloride Carbon Dioxide BUN Creatinine Glucose POC Glucose 142 H 155 H Lactic Acid Calcium Phosphorus Magnesium Direct Bilirubin AST ALT Alkaline Phosphatase Lactate Dehydrogenase Troponin T C-Reactive Protein Total Protein Albumin Prealbumin Triglycerides Cholesterol LDL Cholesterol Direct HDL Cholesterol Urine pH Urine WBC (Auto) Urine Creatinine Urine Total Protein Fluid Total Protein Vancomycin Trough Rheumatoid Factor Complement C4 Miscellaneous Test Crossmatch 11/07/16 11/08/16 11/08/16 21:34 13:03 23:37 WBC RBC 2.63 L Hgb 7.7 L Hct 22.7 L MCV MCH MCHC RDW 17.0 H Plt Count Lymph % (Auto) [place] % (Auto) Lymph # [place] # Baso # Seg Neutrophils % Seg Neuts % (Manual) Lymphocytes % (Manual) Monocytes % (Manual) Eosinophils % (Manual) Basophils % (Manual) Nucleated RBC % Seg Neutrophils # Seg Neutrophils # Man Lymphocytes # (Manual) Monocytes # (Manual) Eosinophils # (Manual) Basophils # (Manual) PT INR Fibrinogen dRVVT Confirm Interp Factor V Activity POC ABG pH 7.478 H POC ABG pCO2 34.0 L POC ABG pO2 50 L ABG pO2 ABG HCO3 ABG Base Excess ABG Hemoglobin Oxyhemoglobin Sodium Potassium Chloride Carbon Dioxide BUN Creatinine Glucose POC Glucose 113 H Lactic Acid Calcium Phosphorus Magnesium Direct Bilirubin AST ALT Alkaline Phosphatase Lactate Dehydrogenase Troponin T C-Reactive Protein Total Protein Albumin Prealbumin Triglycerides Cholesterol LDL Cholesterol Direct HDL Cholesterol Urine pH Urine WBC (Auto) Urine Creatinine Urine Total Protein Fluid Total Protein Vancomycin Trough Rheumatoid Factor Complement C4 Miscellaneous Test Crossmatch 11/09/16 11/09/16 11/09/16 04:35 10:15 18:21 WBC RBC 2.68 L Hgb 7.8 L Hct 23.3 L MCV MCH MCHC RDW 17.0 H Plt Count Lymph % (Auto) [place] % (Auto) 12.1 H Lymph # [place] # 1.1 H Baso # Seg Neutrophils % Seg Neuts % (Manual) Lymphocytes % (Manual) Monocytes % (Manual) Eosinophils % (Manual) Basophils % (Manual) Nucleated RBC % Seg Neutrophils # Seg Neutrophils # Man Lymphocytes # (Manual) Monocytes # (Manual) Eosinophils # (Manual) Basophils # (Manual) PT INR Fibrinogen dRVVT Confirm Interp Factor V Activity POC ABG pH POC ABG pCO2 POC ABG pO2 ABG pO2 ABG HCO3 ABG Base Excess ABG Hemoglobin Oxyhemoglobin Sodium Potassium Chloride Carbon Dioxide BUN 51 H Creatinine 1.8 H Glucose POC Glucose 60 L Lactic Acid Calcium 8.3 L Phosphorus Magnesium Direct Bilirubin AST ALT Alkaline Phosphatase Lactate Dehydrogenase Troponin T C-Reactive Protein Total Protein Albumin Prealbumin Triglycerides Cholesterol LDL Cholesterol Direct HDL Cholesterol Urine pH Urine WBC (Auto) Urine Creatinine Urine Total Protein Fluid Total Protein Vancomycin Trough Rheumatoid Factor Complement C4 Miscellaneous Test Crossmatch 11/09/16 11/10/16 11/10/16 18:55 07:00 11:51 WBC RBC Hgb Hct MCV MCH MCHC RDW Plt Count Lymph % (Auto) [place] % (Auto) Lymph # [place] # Baso # Seg Neutrophils % Seg Neuts % (Manual) Lymphocytes % (Manual) Monocytes % (Manual) Eosinophils % (Manual) Basophils % (Manual) Nucleated RBC % Seg Neutrophils # Seg Neutrophils # Man Lymphocytes # (Manual) Monocytes # (Manual) Eosinophils # (Manual) Basophils # (Manual) PT INR Fibrinogen dRVVT Confirm Interp Factor V Activity POC ABG pH POC ABG pCO2 POC ABG pO2 ABG pO2 ABG HCO3 ABG Base Excess ABG Hemoglobin Oxyhemoglobin Sodium Potassium 3.0 L D Chloride 97.4 L Carbon Dioxide BUN 28 H Creatinine 1.3 H Glucose POC Glucose 68 L 120 H Lactic Acid Calcium 7.8 L Phosphorus Magnesium Direct Bilirubin AST ALT Alkaline Phosphatase Lactate Dehydrogenase Troponin T C-Reactive Protein Total Protein Albumin Prealbumin Triglycerides Cholesterol LDL Cholesterol Direct HDL Cholesterol Urine pH Urine WBC (Auto) Urine Creatinine Urine Total Protein Fluid Total Protein Vancomycin Trough Rheumatoid Factor Complement C4 Miscellaneous Test Crossmatch 11/10/16 11/11/16 11/11/16 14:20 06:59 06:59 WBC RBC 2.81 L Hgb 8.1 L Hct 24.4 L MCV MCH MCHC RDW 16.4 H Plt Count Lymph % (Auto) [place] % (Auto) 10.8 H Lymph # [place] # 1.0 H Baso # Seg Neutrophils % Seg Neuts % (Manual) Lymphocytes % (Manual) Monocytes % (Manual) Eosinophils % (Manual) Basophils % (Manual) Nucleated RBC % Seg Neutrophils # Seg Neutrophils # Man Lymphocytes # (Manual) Monocytes # (Manual) Eosinophils # (Manual) Basophils # (Manual) PT INR Fibrinogen dRVVT Confirm Interp Factor V Activity POC ABG pH POC ABG pCO2 POC ABG pO2 ABG pO2 ABG HCO3 ABG Base Excess ABG Hemoglobin Oxyhemoglobin Sodium Potassium Chloride Carbon Dioxide BUN Creatinine Glucose POC Glucose Lactic Acid Calcium Phosphorus Magnesium Direct Bilirubin AST ALT Alkaline Phosphatase Lactate Dehydrogenase 196 H Troponin T C-Reactive Protein Total Protein 6.1 L Albumin Prealbumin Triglycerides Cholesterol LDL Cholesterol Direct HDL Cholesterol Urine pH Urine WBC (Auto) Urine Creatinine Urine Total Protein Fluid Total Protein < 3.0 L Vancomycin Trough Rheumatoid Factor Complement C4 Miscellaneous Test Crossmatch 11/11/16 11/11/16 11/12/16 06:59 09:50 04:00 WBC RBC Hgb Hct MCV MCH MCHC RDW Plt Count Lymph % (Auto) [place] % (Auto) Lymph # [place] # Baso # Seg Neutrophils % Seg Neuts % (Manual) Lymphocytes % (Manual) Monocytes % (Manual) Eosinophils % (Manual) Basophils % (Manual) Nucleated RBC % Seg Neutrophils # Seg Neutrophils # Man Lymphocytes # (Manual) Monocytes # (Manual) Eosinophils # (Manual) Basophils # (Manual) PT INR 1.18 H Fibrinogen dRVVT Confirm Interp Factor V Activity POC ABG pH POC ABG pCO2 POC ABG pO2 ABG pO2 ABG HCO3 ABG Base Excess ABG Hemoglobin Oxyhemoglobin Sodium 136 L 133 L Potassium Chloride 96.1 L 94.8 L Carbon Dioxide 21 L BUN 37 H 42 H Creatinine 1.8 H 2.0 H Glucose POC Glucose Lactic Acid Calcium Phosphorus Magnesium Direct Bilirubin AST ALT Alkaline Phosphatase Lactate Dehydrogenase Troponin T C-Reactive Protein Total Protein Albumin Prealbumin Triglycerides Cholesterol LDL Cholesterol Direct HDL Cholesterol Urine pH Urine WBC (Auto) Urine Creatinine Urine Total Protein Fluid Total Protein Vancomycin Trough Rheumatoid Factor Complement C4 Miscellaneous Test Crossmatch 11/12/16 11/12/16 11/13/16 04:00 23:55 05:53 WBC RBC Hgb 8.9 L Hct 27.2 L MCV MCH MCHC RDW Plt Count Lymph % (Auto) [place] % (Auto) Lymph # [place] # Baso # Seg Neutrophils % Seg Neuts % (Manual) Lymphocytes % (Manual) Monocytes % (Manual) Eosinophils % (Manual) Basophils % (Manual) Nucleated RBC % Seg Neutrophils # Seg Neutrophils # Man Lymphocytes # (Manual) Monocytes # (Manual) Eosinophils # (Manual) Basophils # (Manual) PT INR Fibrinogen dRVVT Confirm Interp Factor V Activity POC ABG pH POC ABG pCO2 POC ABG pO2 ABG pO2 ABG HCO3 ABG Base Excess ABG Hemoglobin Oxyhemoglobin Sodium Potassium Chloride Carbon Dioxide BUN Creatinine Glucose POC Glucose 132 H 120 H Lactic Acid Calcium Phosphorus Magnesium Direct Bilirubin AST ALT Alkaline Phosphatase Lactate Dehydrogenase Troponin T C-Reactive Protein Total Protein Albumin Prealbumin Triglycerides Cholesterol LDL Cholesterol Direct HDL Cholesterol Urine pH Urine WBC (Auto) Urine Creatinine Urine Total Protein Fluid Total Protein Vancomycin Trough Rheumatoid Factor Complement C4 Miscellaneous Test Crossmatch 11/13/16 11/13/16 11/13/16 11:43 17:09 23:41 WBC RBC Hgb Hct MCV MCH MCHC RDW Plt Count Lymph % (Auto) [place] % (Auto) Lymph # [place] # Baso # Seg Neutrophils % Seg Neuts % (Manual) Lymphocytes % (Manual) Monocytes % (Manual) Eosinophils % (Manual) Basophils % (Manual) Nucleated RBC % Seg Neutrophils # Seg Neutrophils # Man Lymphocytes # (Manual) Monocytes # (Manual) Eosinophils # (Manual) Basophils # (Manual) PT INR Fibrinogen dRVVT Confirm Interp Factor V Activity POC ABG pH POC ABG pCO2 POC ABG pO2 ABG pO2 ABG HCO3 ABG Base Excess ABG Hemoglobin Oxyhemoglobin Sodium Potassium Chloride Carbon Dioxide BUN Creatinine Glucose POC Glucose 114 H 113 H 108 H Lactic Acid Calcium Phosphorus Magnesium Direct Bilirubin AST ALT Alkaline Phosphatase Lactate Dehydrogenase Troponin T C-Reactive Protein Total Protein Albumin Prealbumin Triglycerides Cholesterol LDL Cholesterol Direct HDL Cholesterol Urine pH Urine WBC (Auto) Urine Creatinine Urine Total Protein Fluid Total Protein Vancomycin Trough Rheumatoid Factor Complement C4 Miscellaneous Test Crossmatch 11/13/16 11/15/16 11/15/16 Unknown 00:37 03:30 WBC 11.2 H RBC 2.72 L Hgb 7.6 L Hct 23.4 L MCV MCH MCHC RDW 16.5 H Plt Count Lymph % (Auto) [place] % (Auto) Lymph # [place] # Baso # Seg Neutrophils % Seg Neuts % (Manual) Lymphocytes % (Manual) Monocytes % (Manual) Eosinophils % (Manual) Basophils % (Manual) Nucleated RBC % Seg Neutrophils # Seg Neutrophils # Man Lymphocytes # (Manual) Monocytes # (Manual) Eosinophils # (Manual) Basophils # (Manual) PT INR Fibrinogen dRVVT Confirm Interp Factor V Activity POC ABG pH POC ABG pCO2 POC ABG pO2 ABG pO2 ABG HCO3 ABG Base Excess ABG Hemoglobin Oxyhemoglobin Sodium 135 L Potassium Chloride 95.2 L Carbon Dioxide BUN 52 H Creatinine 2.2 H Glucose POC Glucose 108 H Lactic Acid Calcium Phosphorus Magnesium Direct Bilirubin AST ALT Alkaline Phosphatase Lactate Dehydrogenase Troponin T C-Reactive Protein Total Protein Albumin Prealbumin Triglycerides Cholesterol LDL Cholesterol Direct HDL Cholesterol Urine pH Urine WBC (Auto) Urine Creatinine Urine Total Protein Fluid Total Protein Vancomycin Trough Rheumatoid Factor Complement C4 Miscellaneous Test Crossmatch 11/15/16 11/15/16 11/15/16 03:30 05:04 11:50 WBC RBC Hgb Hct MCV MCH MCHC RDW Plt Count Lymph % (Auto) [place] % (Auto) Lymph # [place] # Baso # Seg Neutrophils % Seg Neuts % (Manual) Lymphocytes % (Manual) Monocytes % (Manual) Eosinophils % (Manual) Basophils % (Manual) Nucleated RBC % Seg Neutrophils # Seg Neutrophils # Man Lymphocytes # (Manual) Monocytes # (Manual) Eosinophils # (Manual) Basophils # (Manual) PT INR Fibrinogen dRVVT Confirm Interp Factor V Activity POC ABG pH POC ABG pCO2 POC ABG pO2 ABG pO2 ABG HCO3 ABG Base Excess ABG Hemoglobin Oxyhemoglobin Sodium Potassium 3.4 L Chloride Carbon Dioxide BUN 25 H Creatinine 1.5 H Glucose 103 H POC Glucose 121 H 144 H Lactic Acid Calcium Phosphorus Magnesium Direct Bilirubin AST ALT Alkaline Phosphatase Lactate Dehydrogenase Troponin T C-Reactive Protein Total Protein Albumin Prealbumin Triglycerides Cholesterol LDL Cholesterol Direct HDL Cholesterol Urine pH Urine WBC (Auto) Urine Creatinine Urine Total Protein Fluid Total Protein Vancomycin Trough Rheumatoid Factor Complement C4 Miscellaneous Test Crossmatch 11/15/16 11/15/16 11/16/16 21:28 23:20 11:44 WBC RBC Hgb Hct MCV MCH MCHC RDW Plt Count Lymph % (Auto) [place] % (Auto) Lymph # [place] # Baso # Seg Neutrophils % Seg Neuts % (Manual) Lymphocytes % (Manual) Monocytes % (Manual) Eosinophils % (Manual) Basophils % (Manual) Nucleated RBC % Seg Neutrophils # Seg Neutrophils # Man Lymphocytes # (Manual) Monocytes # (Manual) Eosinophils # (Manual) Basophils # (Manual) PT INR Fibrinogen dRVVT Confirm Interp Factor V Activity POC ABG pH 7.462 H POC ABG pCO2 POC ABG pO2 71 L ABG pO2 ABG HCO3 ABG Base Excess ABG Hemoglobin Oxyhemoglobin Sodium Potassium Chloride Carbon Dioxide BUN Creatinine Glucose POC Glucose 116 H 133 H Lactic Acid Calcium Phosphorus Magnesium Direct Bilirubin AST ALT Alkaline Phosphatase Lactate Dehydrogenase Troponin T C-Reactive Protein Total Protein Albumin Prealbumin Triglycerides Cholesterol LDL Cholesterol Direct HDL Cholesterol Urine pH Urine WBC (Auto) Urine Creatinine Urine Total Protein Fluid Total Protein Vancomycin Trough Rheumatoid Factor Complement C4 Miscellaneous Test Crossmatch 11/16/16 11/16/16 11/16/16 12:20 17:05 23:35 WBC 11.7 H RBC 2.73 L Hgb 7.6 L Hct 23.7 L MCV MCH MCHC RDW 16.6 H Plt Count Lymph % (Auto) [place] % (Auto) Lymph # [place] # Baso # Seg Neutrophils % Seg Neuts % (Manual) Lymphocytes % (Manual) Monocytes % (Manual) Eosinophils % (Manual) Basophils % (Manual) Nucleated RBC % Seg Neutrophils # Seg Neutrophils # Man Lymphocytes # (Manual) Monocytes # (Manual) Eosinophils # (Manual) Basophils # (Manual) PT INR Fibrinogen dRVVT Confirm Interp Factor V Activity POC ABG pH POC ABG pCO2 POC ABG pO2 ABG pO2 ABG HCO3 ABG Base Excess ABG Hemoglobin Oxyhemoglobin Sodium Potassium Chloride Carbon Dioxide BUN Creatinine Glucose POC Glucose 154 H 125 H Lactic Acid Calcium Phosphorus Magnesium Direct Bilirubin AST ALT Alkaline Phosphatase Lactate Dehydrogenase Troponin T C-Reactive Protein Total Protein Albumin Prealbumin Triglycerides Cholesterol LDL Cholesterol Direct HDL Cholesterol Urine pH Urine WBC (Auto) Urine Creatinine Urine Total Protein Fluid Total Protein Vancomycin Trough Rheumatoid Factor Complement C4 Miscellaneous Test Crossmatch 11/17/16 11/17/16 11/17/16 03:20 03:20 03:20 WBC RBC 2.55 L Hgb 7.3 L Hct 21.9 L MCV MCH MCHC RDW 16.6 H Plt Count Lymph % (Auto) [place] % (Auto) 11.5 H Lymph # [place] # 1.1 H Baso # Seg Neutrophils % Seg Neuts % (Manual) Lymphocytes % (Manual) Monocytes % (Manual) Eosinophils % (Manual) Basophils % (Manual) Nucleated RBC % Seg Neutrophils # Seg Neutrophils # Man Lymphocytes # (Manual) Monocytes # (Manual) Eosinophils # (Manual) Basophils # (Manual) PT 16.8 H INR 1.37 H Fibrinogen dRVVT Confirm Interp Factor V Activity POC ABG pH POC ABG pCO2 POC ABG pO2 ABG pO2 ABG HCO3 ABG Base Excess ABG Hemoglobin Oxyhemoglobin Sodium Potassium 3.5 L Chloride Carbon Dioxide BUN 21 H Creatinine Glucose POC Glucose Lactic Acid Calcium 7.9 L Phosphorus Magnesium Direct Bilirubin AST ALT Alkaline Phosphatase Lactate Dehydrogenase Troponin T C-Reactive Protein Total Protein Albumin Prealbumin Triglycerides Cholesterol LDL Cholesterol Direct HDL Cholesterol Urine pH Urine WBC (Auto) Urine Creatinine Urine Total Protein Fluid Total Protein Vancomycin Trough Rheumatoid Factor Complement C4 Miscellaneous Test Crossmatch 11/17/16 11/17/16 11/17/16 06:34 11:21 21:22 WBC RBC Hgb Hct MCV MCH MCHC RDW Plt Count Lymph % (Auto) [place] % (Auto) Lymph # [place] # Baso # Seg Neutrophils % Seg Neuts % (Manual) Lymphocytes % (Manual) Monocytes % (Manual) Eosinophils % (Manual) Basophils % (Manual) Nucleated RBC % Seg Neutrophils # Seg Neutrophils # Man Lymphocytes # (Manual) Monocytes # (Manual) Eosinophils # (Manual) Basophils # (Manual) PT INR Fibrinogen dRVVT Confirm Interp Factor V Activity POC ABG pH 7.467 H POC ABG pCO2 POC ABG pO2 73 L ABG pO2 ABG HCO3 ABG Base Excess ABG Hemoglobin Oxyhemoglobin Sodium Potassium Chloride Carbon Dioxide BUN Creatinine Glucose POC Glucose 121 H 119 H Lactic Acid Calcium Phosphorus Magnesium Direct Bilirubin AST ALT Alkaline Phosphatase Lactate Dehydrogenase Troponin T C-Reactive Protein Total Protein Albumin Prealbumin Triglycerides Cholesterol LDL Cholesterol Direct HDL Cholesterol Urine pH Urine WBC (Auto) Urine Creatinine Urine Total Protein Fluid Total Protein Vancomycin Trough Rheumatoid Factor Complement C4 Miscellaneous Test Crossmatch 11/18/16 11/18/16 11/19/16 12:16 17:19 00:00 WBC RBC Hgb Hct MCV MCH MCHC RDW Plt Count Lymph % (Auto) [place] % (Auto) Lymph # [place] # Baso # Seg Neutrophils % Seg Neuts % (Manual) Lymphocytes % (Manual) Monocytes % (Manual) Eosinophils % (Manual) Basophils % (Manual) Nucleated RBC % Seg Neutrophils # Seg Neutrophils # Man Lymphocytes # (Manual) Monocytes # (Manual) Eosinophils # (Manual) Basophils # (Manual) PT INR Fibrinogen dRVVT Confirm Interp Factor V Activity POC ABG pH POC ABG pCO2 POC ABG pO2 ABG pO2 ABG HCO3 ABG Base Excess ABG Hemoglobin Oxyhemoglobin Sodium Potassium Chloride Carbon Dioxide BUN Creatinine Glucose POC Glucose 124 H 162 H 139 H Lactic Acid Calcium Phosphorus Magnesium Direct Bilirubin AST ALT Alkaline Phosphatase Lactate Dehydrogenase Troponin T C-Reactive Protein Total Protein Albumin Prealbumin Triglycerides Cholesterol LDL Cholesterol Direct HDL Cholesterol Urine pH Urine WBC (Auto) Urine Creatinine Urine Total Protein Fluid Total Protein Vancomycin Trough Rheumatoid Factor Complement C4 Miscellaneous Test Crossmatch 11/19/16 11/19/16 11/20/16 05:00 12:43 00:40 WBC RBC Hgb Hct MCV MCH MCHC RDW Plt Count Lymph % (Auto) [place] % (Auto) Lymph # [place] # Baso # Seg Neutrophils % Seg Neuts % (Manual) Lymphocytes % (Manual) Monocytes % (Manual) Eosinophils % (Manual) Basophils % (Manual) Nucleated RBC % Seg Neutrophils # Seg Neutrophils # Man Lymphocytes # (Manual) Monocytes # (Manual) Eosinophils # (Manual) Basophils # (Manual) PT INR Fibrinogen dRVVT Confirm Interp Factor V Activity POC ABG pH POC ABG pCO2 POC ABG pO2 ABG pO2 ABG HCO3 ABG Base Excess ABG Hemoglobin Oxyhemoglobin Sodium Potassium Chloride Carbon Dioxide BUN Creatinine Glucose POC Glucose 110 H 125 H 136 H Lactic Acid Calcium Phosphorus Magnesium Direct Bilirubin AST ALT Alkaline Phosphatase Lactate Dehydrogenase Troponin T C-Reactive Protein Total Protein Albumin Prealbumin Triglycerides Cholesterol LDL Cholesterol Direct HDL Cholesterol Urine pH Urine WBC (Auto) Urine Creatinine Urine Total Protein Fluid Total Protein Vancomycin Trough Rheumatoid Factor Complement C4 Miscellaneous Test Crossmatch 11/20/16 11/20/16 11/20/16 05:00 05:00 05:51 WBC 13.1 H RBC 2.74 L Hgb 7.7 L Hct 23.6 L MCV MCH MCHC RDW 16.9 H Plt Count Lymph % (Auto) [place] % (Auto) 10.8 H Lymph # [place] # 1.4 H Baso # Seg Neutrophils % Seg Neuts % (Manual) Lymphocytes % (Manual) Monocytes % (Manual) Eosinophils % (Manual) Basophils % (Manual) Nucleated RBC % Seg Neutrophils # 7.9 H Seg Neutrophils # Man Lymphocytes # (Manual) Monocytes # (Manual) Eosinophils # (Manual) Basophils # (Manual) PT INR Fibrinogen dRVVT Confirm Interp Factor V Activity POC ABG pH POC ABG pCO2 POC ABG pO2 ABG pO2 ABG HCO3 ABG Base Excess ABG Hemoglobin Oxyhemoglobin Sodium Potassium Chloride Carbon Dioxide BUN 31 H Creatinine 1.8 H Glucose 129 H POC Glucose 133 H Lactic Acid Calcium Phosphorus Magnesium Direct Bilirubin AST ALT Alkaline Phosphatase Lactate Dehydrogenase Troponin T C-Reactive Protein Total Protein Albumin Prealbumin Triglycerides Cholesterol LDL Cholesterol Direct HDL Cholesterol Urine pH Urine WBC (Auto) Urine Creatinine Urine Total Protein Fluid Total Protein Vancomycin Trough Rheumatoid Factor Complement C4 Miscellaneous Test Crossmatch 11/20/16 11/20/16 11/21/16 12:40 18:10 01:20 WBC RBC Hgb Hct MCV MCH MCHC RDW Plt Count Lymph % (Auto) [place] % (Auto) Lymph # [place] # Baso # Seg Neutrophils % Seg Neuts % (Manual) Lymphocytes % (Manual) Monocytes % (Manual) Eosinophils % (Manual) Basophils % (Manual) Nucleated RBC % Seg Neutrophils # Seg Neutrophils # Man Lymphocytes # (Manual) Monocytes # (Manual) Eosinophils # (Manual) Basophils # (Manual) PT INR Fibrinogen dRVVT Confirm Interp Factor V Activity POC ABG pH POC ABG pCO2 POC ABG pO2 ABG pO2 ABG HCO3 ABG Base Excess ABG Hemoglobin Oxyhemoglobin Sodium Potassium Chloride Carbon Dioxide BUN Creatinine Glucose POC Glucose 134 H 138 H 136 H Lactic Acid Calcium Phosphorus Magnesium Direct Bilirubin AST ALT Alkaline Phosphatase Lactate Dehydrogenase Troponin T C-Reactive Protein Total Protein Albumin Prealbumin Triglycerides Cholesterol LDL Cholesterol Direct HDL Cholesterol Urine pH Urine WBC (Auto) Urine Creatinine Urine Total Protein Fluid Total Protein Vancomycin Trough Rheumatoid Factor Complement C4 Miscellaneous Test Crossmatch 11/21/16 11/21/16 11/21/16 07:04 07:45 07:45 WBC 22.0 H RBC 2.91 L Hgb 8.2 L Hct 25.4 L MCV MCH MCHC RDW 17.1 H Plt Count Lymph % (Auto) [place] % (Auto) Lymph # [place] # Baso # Seg Neutrophils % Seg Neuts % (Manual) Lymphocytes % (Manual) 8.0 L Monocytes % (Manual) Eosinophils % (Manual) Basophils % (Manual) Nucleated RBC % Seg Neutrophils # Seg Neutrophils # Man 14.7 H Lymphocytes # (Manual) Monocytes # (Manual) 1.1 H Eosinophils # (Manual) Basophils # (Manual) PT INR Fibrinogen dRVVT Confirm Interp Factor V Activity POC ABG pH POC ABG pCO2 POC ABG pO2 ABG pO2 ABG HCO3 ABG Base Excess ABG Hemoglobin Oxyhemoglobin Sodium Potassium Chloride Carbon Dioxide BUN 42 H Creatinine 2.0 H Glucose POC Glucose 108 H Lactic Acid Calcium Phosphorus Magnesium Direct Bilirubin AST ALT Alkaline Phosphatase Lactate Dehydrogenase Troponin T C-Reactive Protein Total Protein Albumin Prealbumin Triglycerides Cholesterol LDL Cholesterol Direct HDL Cholesterol Urine pH Urine WBC (Auto) Urine Creatinine Urine Total Protein Fluid Total Protein Vancomycin Trough Rheumatoid Factor Complement C4 Miscellaneous Test Crossmatch 11/21/16 11/21/16 11/21/16 08:38 10:09 11:20 WBC RBC Hgb Hct MCV MCH MCHC RDW Plt Count Lymph % (Auto) [place] % (Auto) Lymph # [place] # Baso # Seg Neutrophils % Seg Neuts % (Manual) Lymphocytes % (Manual) Monocytes % (Manual) Eosinophils % (Manual) Basophils % (Manual) Nucleated RBC % Seg Neutrophils # Seg Neutrophils # Man Lymphocytes # (Manual) Monocytes # (Manual) Eosinophils # (Manual) Basophils # (Manual) PT INR Fibrinogen dRVVT Confirm Interp Factor V Activity POC ABG pH 7.346 L POC ABG pCO2 34.4 L POC ABG pO2 314 H ABG pO2 ABG HCO3 ABG Base Excess ABG Hemoglobin Oxyhemoglobin Sodium Potassium Chloride Carbon Dioxide BUN Creatinine Glucose POC Glucose 195 H 153 H Lactic Acid Calcium Phosphorus Magnesium Direct Bilirubin AST ALT Alkaline Phosphatase Lactate Dehydrogenase Troponin T C-Reactive Protein Total Protein Albumin Prealbumin Triglycerides Cholesterol LDL Cholesterol Direct HDL Cholesterol Urine pH Urine WBC (Auto) Urine Creatinine Urine Total Protein Fluid Total Protein Vancomycin Trough Rheumatoid Factor Complement C4 Miscellaneous Test Crossmatch 11/21/16 11/22/16 11/22/16 23:37 04:48 05:00 WBC 29.7 H RBC 2.73 L Hgb 7.5 L Hct 24.2 L MCV MCH 27 L MCHC RDW 17.4 H Plt Count Lymph % (Auto) [place] % (Auto) Lymph # [place] # Baso # Seg Neutrophils % Seg Neuts % (Manual) Lymphocytes % (Manual) 7.0 L Monocytes % (Manual) Eosinophils % (Manual) Basophils % (Manual) Nucleated RBC % Seg Neutrophils # Seg Neutrophils # Man 15.4 H Lymphocytes # (Manual) Monocytes # (Manual) Eosinophils # (Manual) Basophils # (Manual) PT INR Fibrinogen dRVVT Confirm Interp Factor V Activity POC ABG pH POC ABG pCO2 24.6 L POC ABG pO2 189 H ABG pO2 ABG HCO3 ABG Base Excess ABG Hemoglobin Oxyhemoglobin Sodium Potassium Chloride Carbon Dioxide BUN Creatinine Glucose POC Glucose 65 L Lactic Acid Calcium Phosphorus Magnesium Direct Bilirubin AST ALT Alkaline Phosphatase Lactate Dehydrogenase Troponin T C-Reactive Protein Total Protein Albumin Prealbumin Triglycerides Cholesterol LDL Cholesterol Direct HDL Cholesterol Urine pH Urine WBC (Auto) Urine Creatinine Urine Total Protein Fluid Total Protein Vancomycin Trough Rheumatoid Factor Complement C4 Miscellaneous Test Crossmatch 11/22/16 11/23/16 11/23/16 05:00 03:44 04:06 WBC RBC 2.52 L Hgb 7.2 L Hct 21.5 L MCV MCH MCHC RDW 17.1 H Plt Count Lymph % (Auto) [place] % (Auto) 12.4 H Lymph # [place] # 1.4 H Baso # Seg Neutrophils % Seg Neuts % (Manual) Lymphocytes % (Manual) Monocytes % (Manual) Eosinophils % (Manual) Basophils % (Manual) Nucleated RBC % Seg Neutrophils # Seg Neutrophils # Man Lymphocytes # (Manual) Monocytes # (Manual) Eosinophils # (Manual) Basophils # (Manual) PT INR Fibrinogen dRVVT Confirm Interp Factor V Activity POC ABG pH 7.493 H POC ABG pCO2 29.5 L POC ABG pO2 49 L ABG pO2 ABG HCO3 ABG Base Excess ABG Hemoglobin Oxyhemoglobin Sodium 134 L Potassium Chloride 95.9 L Carbon Dioxide 14 L D BUN 51 H Creatinine 2.6 H Glucose POC Glucose Lactic Acid Calcium Phosphorus Magnesium Direct Bilirubin AST ALT Alkaline Phosphatase Lactate Dehydrogenase Troponin T C-Reactive Protein Total Protein Albumin Prealbumin Triglycerides Cholesterol LDL Cholesterol Direct HDL Cholesterol Urine pH Urine WBC (Auto) Urine Creatinine Urine Total Protein Fluid Total Protein Vancomycin Trough Rheumatoid Factor Complement C4 Miscellaneous Test Crossmatch 11/23/16 11/23/16 11/24/16 04:06 11:29 06:39 WBC RBC Hgb Hct MCV MCH MCHC RDW Plt Count Lymph % (Auto) [place] % (Auto) Lymph # [place] # Baso # Seg Neutrophils % Seg Neuts % (Manual) Lymphocytes % (Manual) Monocytes % (Manual) Eosinophils % (Manual) Basophils % (Manual) Nucleated RBC % Seg Neutrophils # Seg Neutrophils # Man Lymphocytes # (Manual) Monocytes # (Manual) Eosinophils # (Manual) Basophils # (Manual) PT INR Fibrinogen dRVVT Confirm Interp Factor V Activity POC ABG pH POC ABG pCO2 POC ABG pO2 ABG pO2 ABG HCO3 ABG Base Excess ABG Hemoglobin Oxyhemoglobin Sodium 136 L Potassium Chloride 95.2 L Carbon Dioxide BUN 60 H Creatinine 2.9 H Glucose POC Glucose 69 L 305 H Lactic Acid Calcium Phosphorus Magnesium 1.60 L Direct Bilirubin AST ALT Alkaline Phosphatase Lactate Dehydrogenase Troponin T C-Reactive Protein Total Protein Albumin Prealbumin Triglycerides Cholesterol LDL Cholesterol Direct HDL Cholesterol Urine pH Urine WBC (Auto) Urine Creatinine Urine Total Protein Fluid Total Protein Vancomycin Trough Rheumatoid Factor Complement C4 Miscellaneous Test Crossmatch 11/24/16 11/24/16 11/24/16 06:43 08:08 08:08 WBC 11.2 H RBC 2.47 L Hgb 6.8 L Hct 20.6 L MCV MCH MCHC RDW 17.0 H Plt Count Lymph % (Auto) [place] % (Auto) 10.3 H Lymph # [place] # 1.2 H Baso # Seg Neutrophils % Seg Neuts % (Manual) Lymphocytes % (Manual) Monocytes % (Manual) Eosinophils % (Manual) Basophils % (Manual) Nucleated RBC % Seg Neutrophils # Seg Neutrophils # Man Lymphocytes # (Manual) Monocytes # (Manual) Eosinophils # (Manual) Basophils # (Manual) PT INR Fibrinogen dRVVT Confirm Interp Factor V Activity POC ABG pH POC ABG pCO2 POC ABG pO2 ABG pO2 ABG HCO3 ABG Base Excess ABG Hemoglobin Oxyhemoglobin Sodium 135 L Potassium Chloride 96.3 L Carbon Dioxide BUN 61 H Creatinine 3.1 H Glucose POC Glucose 62 L Lactic Acid Calcium 8.2 L Phosphorus Magnesium Direct Bilirubin AST ALT Alkaline Phosphatase Lactate Dehydrogenase Troponin T C-Reactive Protein Total Protein Albumin Prealbumin Triglycerides Cholesterol LDL Cholesterol Direct HDL Cholesterol Urine pH Urine WBC (Auto) Urine Creatinine Urine Total Protein Fluid Total Protein Vancomycin Trough Rheumatoid Factor Complement C4 Miscellaneous Test Crossmatch 11/24/16 11/24/16 11/24/16 08:34 11:20 12:41 WBC RBC Hgb Hct MCV MCH MCHC RDW Plt Count Lymph % (Auto) [place] % (Auto) Lymph # [place] # Baso # Seg Neutrophils % Seg Neuts % (Manual) Lymphocytes % (Manual) Monocytes % (Manual) Eosinophils % (Manual) Basophils % (Manual) Nucleated RBC % Seg Neutrophils # Seg Neutrophils # Man Lymphocytes # (Manual) Monocytes # (Manual) Eosinophils # (Manual) Basophils # (Manual) PT INR Fibrinogen dRVVT Confirm Interp Factor V Activity POC ABG pH POC ABG pCO2 POC ABG pO2 ABG pO2 ABG HCO3 ABG Base Excess ABG Hemoglobin Oxyhemoglobin Sodium Potassium Chloride Carbon Dioxide BUN Creatinine Glucose POC Glucose 108 H Lactic Acid Calcium Phosphorus Magnesium 1.60 L Direct Bilirubin AST ALT Alkaline Phosphatase Lactate Dehydrogenase Troponin T C-Reactive Protein Total Protein Albumin Prealbumin Triglycerides Cholesterol LDL Cholesterol Direct HDL Cholesterol Urine pH Urine WBC (Auto) Urine Creatinine Urine Total Protein Fluid Total Protein Vancomycin Trough Rheumatoid Factor Complement C4 Miscellaneous Test Crossmatch See Detail 11/25/16 11/25/16 11/25/16 00:03 04:42 04:42 WBC RBC 3.03 L Hgb 8.6 L Hct 25.3 L MCV MCH MCHC RDW 16.2 H Plt Count Lymph % (Auto) [place] % (Auto) 8.1 H Lymph # [place] # Baso # Seg Neutrophils % 71.3 H Seg Neuts % (Manual) Lymphocytes % (Manual) Monocytes % (Manual) Eosinophils % (Manual) Basophils % (Manual) Nucleated RBC % Seg Neutrophils # Seg Neutrophils # Man Lymphocytes # (Manual) Monocytes # (Manual) Eosinophils # (Manual) Basophils # (Manual) PT INR Fibrinogen dRVVT Confirm Interp Factor V Activity POC ABG pH POC ABG pCO2 POC ABG pO2 ABG pO2 ABG HCO3 ABG Base Excess ABG Hemoglobin Oxyhemoglobin Sodium Potassium Chloride Carbon Dioxide BUN 61 H Creatinine 3.0 H Glucose 102 H POC Glucose 113 H Lactic Acid Calcium 8.2 L Phosphorus Magnesium Direct Bilirubin AST ALT Alkaline Phosphatase 142 H Lactate Dehydrogenase Troponin T C-Reactive Protein Total Protein 5.7 L Albumin 1.5 L Prealbumin Triglycerides Cholesterol LDL Cholesterol Direct HDL Cholesterol Urine pH Urine WBC (Auto) Urine Creatinine Urine Total Protein Fluid Total Protein Vancomycin Trough Rheumatoid Factor Complement C4 Miscellaneous Test Crossmatch 11/25/16 11/25/16 11/25/16 05:12 11:31 14:12 WBC RBC Hgb Hct MCV MCH MCHC RDW Plt Count Lymph % (Auto) [place] % (Auto) Lymph # [place] # Baso # Seg Neutrophils % Seg Neuts % (Manual) Lymphocytes % (Manual) Monocytes % (Manual) Eosinophils % (Manual) Basophils % (Manual) Nucleated RBC % Seg Neutrophils # Seg Neutrophils # Man Lymphocytes # (Manual) Monocytes # (Manual) Eosinophils # (Manual) Basophils # (Manual) PT INR Fibrinogen dRVVT Confirm Interp Factor V Activity POC ABG pH 7.487 H POC ABG pCO2 POC ABG pO2 153 H ABG pO2 ABG HCO3 ABG Base Excess ABG Hemoglobin Oxyhemoglobin Sodium Potassium Chloride Carbon Dioxide BUN Creatinine Glucose POC Glucose 131 H 140 H Lactic Acid Calcium Phosphorus Magnesium Direct Bilirubin AST ALT Alkaline Phosphatase Lactate Dehydrogenase Troponin T C-Reactive Protein Total Protein Albumin Prealbumin Triglycerides Cholesterol LDL Cholesterol Direct HDL Cholesterol Urine pH Urine WBC (Auto) Urine Creatinine Urine Total Protein Fluid Total Protein Vancomycin Trough Rheumatoid Factor Complement C4 Miscellaneous Test Crossmatch 11/25/16 11/26/16 11/26/16 17:23 00:09 05:13 WBC RBC 2.94 L Hgb 8.4 L Hct 24.6 L MCV MCH MCHC RDW 16.4 H Plt Count Lymph % (Auto) [place] % (Auto) 12.3 H Lymph # [place] # 1.1 H Baso # Seg Neutrophils % Seg Neuts % (Manual) Lymphocytes % (Manual) Monocytes % (Manual) Eosinophils % (Manual) Basophils % (Manual) Nucleated RBC % Seg Neutrophils # Seg Neutrophils # Man Lymphocytes # (Manual) Monocytes # (Manual) Eosinophils # (Manual) Basophils # (Manual) PT INR Fibrinogen dRVVT Confirm Interp Factor V Activity POC ABG pH POC ABG pCO2 POC ABG pO2 ABG pO2 ABG HCO3 ABG Base Excess ABG Hemoglobin Oxyhemoglobin Sodium Potassium Chloride Carbon Dioxide BUN Creatinine Glucose POC Glucose 146 H 112 H Lactic Acid Calcium Phosphorus Magnesium Direct Bilirubin AST ALT Alkaline Phosphatase Lactate Dehydrogenase Troponin T C-Reactive Protein Total Protein Albumin Prealbumin Triglycerides Cholesterol LDL Cholesterol Direct HDL Cholesterol Urine pH Urine WBC (Auto) Urine Creatinine Urine Total Protein Fluid Total Protein Vancomycin Trough Rheumatoid Factor Complement C4 Miscellaneous Test Crossmatch 11/26/16 11/26/16 11/26/16 05:13 05:28 11:53 WBC RBC Hgb Hct MCV MCH MCHC RDW Plt Count Lymph % (Auto) [place] % (Auto) Lymph # [place] # Baso # Seg Neutrophils % Seg Neuts % (Manual) Lymphocytes % (Manual) Monocytes % (Manual) Eosinophils % (Manual) Basophils % (Manual) Nucleated RBC % Seg Neutrophils # Seg Neutrophils # Man Lymphocytes # (Manual) Monocytes # (Manual) Eosinophils # (Manual) Basophils # (Manual) PT INR Fibrinogen dRVVT Confirm Interp Factor V Activity POC ABG pH POC ABG pCO2 POC ABG pO2 ABG pO2 ABG HCO3 ABG Base Excess ABG Hemoglobin Oxyhemoglobin Sodium Potassium Chloride 97.8 L Carbon Dioxide BUN 37 H Creatinine 2.0 H Glucose 109 H POC Glucose 117 H 111 H Lactic Acid Calcium 7.9 L Phosphorus 1.80 L D Magnesium Direct Bilirubin AST ALT Alkaline Phosphatase Lactate Dehydrogenase Troponin T C-Reactive Protein Total Protein Albumin Prealbumin Triglycerides Cholesterol LDL Cholesterol Direct HDL Cholesterol Urine pH Urine WBC (Auto) Urine Creatinine Urine Total Protein Fluid Total Protein Vancomycin Trough Rheumatoid Factor Complement C4 Miscellaneous Test Crossmatch 10/07/17 10/08/17 10/08/17 17:14 04:50 06:02 WBC RBC Hgb Hct MCV MCH MCHC RDW Plt Count Lymph % (Auto) [place] % (Auto) Lymph # [place] # Baso # Seg Neutrophils % Seg Neuts % (Manual) Lymphocytes % (Manual) Monocytes % (Manual) Eosinophils % (Manual) Basophils % (Manual) Nucleated RBC % Seg Neutrophils # Seg Neutrophils # Man Lymphocytes # (Manual) Monocytes # (Manual) Eosinophils # (Manual) Basophils # (Manual) PT INR Fibrinogen dRVVT Confirm Interp Factor V Activity POC ABG pH POC ABG pCO2 POC ABG pO2 ABG pO2 75.2 L ABG HCO3 26.4 H ABG Base Excess ABG Hemoglobin 7.6 L Oxyhemoglobin 94.8 L Sodium Potassium Chloride Carbon Dioxide BUN 49 H Creatinine 2.3 H Glucose POC Glucose 115 H Lactic Acid Calcium Phosphorus 1.50 L Magnesium Direct Bilirubin AST ALT Alkaline Phosphatase Lactate Dehydrogenase Troponin T C-Reactive Protein Total Protein Albumin Prealbumin Triglycerides Cholesterol LDL Cholesterol Direct HDL Cholesterol Urine pH Urine WBC (Auto) Urine Creatinine Urine Total Protein Fluid Total Protein Vancomycin Trough Rheumatoid Factor Complement C4 Miscellaneous Test Crossmatch 11/27/16 11/27/16 11/27/16 06:02 11:25 17:25 WBC 11.6 H RBC 2.75 L Hgb 7.6 L Hct 23.4 L MCV MCH MCHC RDW 16.5 H Plt Count Lymph % (Auto) [place] % (Auto) Lymph # [place] # Baso # Seg Neutrophils % Seg Neuts % (Manual) Lymphocytes % (Manual) Monocytes % (Manual) Eosinophils % (Manual) Basophils % (Manual) Nucleated RBC % Seg Neutrophils # Seg Neutrophils # Man Lymphocytes # (Manual) Monocytes # (Manual) Eosinophils # (Manual) Basophils # (Manual) PT INR Fibrinogen dRVVT Confirm Interp Factor V Activity POC ABG pH POC ABG pCO2 POC ABG pO2 ABG pO2 ABG HCO3 ABG Base Excess ABG Hemoglobin Oxyhemoglobin Sodium Potassium Chloride Carbon Dioxide BUN Creatinine Glucose POC Glucose 114 H 126 H Lactic Acid Calcium Phosphorus Magnesium Direct Bilirubin AST ALT Alkaline Phosphatase Lactate Dehydrogenase Troponin T C-Reactive Protein Total Protein Albumin Prealbumin Triglycerides Cholesterol LDL Cholesterol Direct HDL Cholesterol Urine pH Urine WBC (Auto) Urine Creatinine Urine Total Protein Fluid Total Protein Vancomycin Trough Rheumatoid Factor Complement C4 Miscellaneous Test Crossmatch 11/28/16 11/28/16 11/28/16 04:45 05:33 05:44 WBC RBC Hgb Hct MCV MCH MCHC RDW Plt Count Lymph % (Auto) [place] % (Auto) Lymph # [place] # Baso # Seg Neutrophils % Seg Neuts % (Manual) Lymphocytes % (Manual) Monocytes % (Manual) Eosinophils % (Manual) Basophils % (Manual) Nucleated RBC % Seg Neutrophils # Seg Neutrophils # Man Lymphocytes # (Manual) Monocytes # (Manual) Eosinophils # (Manual) Basophils # (Manual) PT INR Fibrinogen dRVVT Confirm Interp Factor V Activity POC ABG pH POC ABG pCO2 POC ABG pO2 ABG pO2 99.3 H ABG HCO3 ABG Base Excess ABG Hemoglobin 8.3 L Oxyhemoglobin Sodium Potassium Chloride Carbon Dioxide BUN 63 H Creatinine 2.4 H Glucose 102 H POC Glucose 108 H Lactic Acid Calcium Phosphorus 1.80 L Magnesium Direct Bilirubin AST ALT Alkaline Phosphatase Lactate Dehydrogenase Troponin T C-Reactive Protein Total Protein Albumin Prealbumin Triglycerides Cholesterol LDL Cholesterol Direct HDL Cholesterol Urine pH Urine WBC (Auto) Urine Creatinine Urine Total Protein Fluid Total Protein Vancomycin Trough Rheumatoid Factor Complement C4 Miscellaneous Test Crossmatch 11/28/16 11/28/16 11/28/16 12:31 16:09 23:46 WBC RBC Hgb Hct MCV MCH MCHC RDW Plt Count Lymph % (Auto) [place] % (Auto) Lymph # [place] # Baso # Seg Neutrophils % Seg Neuts % (Manual) Lymphocytes % (Manual) Monocytes % (Manual) Eosinophils % (Manual) Basophils % (Manual) Nucleated RBC % Seg Neutrophils # Seg Neutrophils # Man Lymphocytes # (Manual) Monocytes # (Manual) Eosinophils # (Manual) Basophils # (Manual) PT INR Fibrinogen dRVVT Confirm Interp Factor V Activity POC ABG pH POC ABG pCO2 POC ABG pO2 ABG pO2 ABG HCO3 ABG Base Excess ABG Hemoglobin Oxyhemoglobin Sodium Potassium Chloride Carbon Dioxide BUN Creatinine Glucose POC Glucose 126 H 111 H 119 H Lactic Acid Calcium Phosphorus Magnesium Direct Bilirubin AST ALT Alkaline Phosphatase Lactate Dehydrogenase Troponin T C-Reactive Protein Total Protein Albumin Prealbumin Triglycerides Cholesterol LDL Cholesterol Direct HDL Cholesterol Urine pH Urine WBC (Auto) Urine Creatinine Urine Total Protein Fluid Total Protein Vancomycin Trough Rheumatoid Factor Complement C4 Miscellaneous Test Crossmatch 11/29/16 11/29/16 11/29/16 03:33 04:52 05:10 WBC RBC Hgb Hct MCV MCH MCHC RDW Plt Count Lymph % (Auto) [place] % (Auto) Lymph # [place] # Baso # Seg Neutrophils % Seg Neuts % (Manual) Lymphocytes % (Manual) Monocytes % (Manual) Eosinophils % (Manual) Basophils % (Manual) Nucleated RBC % Seg Neutrophils # Seg Neutrophils # Man Lymphocytes # (Manual) Monocytes # (Manual) Eosinophils # (Manual) Basophils # (Manual) PT INR Fibrinogen dRVVT Confirm Interp Factor V Activity POC ABG pH POC ABG pCO2 POC ABG pO2 ABG pO2 ABG HCO3 ABG Base Excess ABG Hemoglobin 7.0 L Oxyhemoglobin 94.9 L Sodium Potassium Chloride Carbon Dioxide BUN 73 H Creatinine 2.7 H Glucose POC Glucose 108 H Lactic Acid Calcium Phosphorus Magnesium Direct Bilirubin AST ALT Alkaline Phosphatase Lactate Dehydrogenase Troponin T C-Reactive Protein Total Protein Albumin Prealbumin Triglycerides Cholesterol LDL Cholesterol Direct HDL Cholesterol Urine pH Urine WBC (Auto) Urine Creatinine Urine Total Protein Fluid Total Protein Vancomycin Trough Rheumatoid Factor Complement C4 Miscellaneous Test Crossmatch 11/29/16 11/29/16 11/29/16 12:16 18:05 23:46 WBC RBC Hgb Hct MCV MCH MCHC RDW Plt Count Lymph % (Auto) [place] % (Auto) Lymph # [place] # Baso # Seg Neutrophils % Seg Neuts % (Manual) Lymphocytes % (Manual) Monocytes % (Manual) Eosinophils % (Manual) Basophils % (Manual) Nucleated RBC % Seg Neutrophils # Seg Neutrophils # Man Lymphocytes # (Manual) Monocytes # (Manual) Eosinophils # (Manual) Basophils # (Manual) PT INR Fibrinogen dRVVT Confirm Interp Factor V Activity POC ABG pH POC ABG pCO2 POC ABG pO2 ABG pO2 ABG HCO3 ABG Base Excess ABG Hemoglobin Oxyhemoglobin Sodium Potassium Chloride Carbon Dioxide BUN Creatinine Glucose POC Glucose 133 H 146 H 141 H Lactic Acid Calcium Phosphorus Magnesium Direct Bilirubin AST ALT Alkaline Phosphatase Lactate Dehydrogenase Troponin T C-Reactive Protein Total Protein Albumin Prealbumin Triglycerides Cholesterol LDL Cholesterol Direct HDL Cholesterol Urine pH Urine WBC (Auto) Urine Creatinine Urine Total Protein Fluid Total Protein Vancomycin Trough Rheumatoid Factor Complement C4 Miscellaneous Test Crossmatch 11/30/16 11/30/16 11/30/16 04:17 04:17 04:32 WBC 12.0 H RBC 2.80 L Hgb 7.8 L Hct 23.6 L MCV MCH MCHC RDW 16.6 H Plt Count Lymph % (Auto) [place] % (Auto) 11.3 H Lymph # [place] # 1.4 H Baso # Seg Neutrophils % Seg Neuts % (Manual) Lymphocytes % (Manual) Monocytes % (Manual) Eosinophils % (Manual) Basophils % (Manual) Nucleated RBC % Seg Neutrophils # 8.2 H Seg Neutrophils # Man Lymphocytes # (Manual) Monocytes # (Manual) Eosinophils # (Manual) Basophils # (Manual) PT INR Fibrinogen dRVVT Confirm Interp Factor V Activity POC ABG pH POC ABG pCO2 POC ABG pO2 ABG pO2 ABG HCO3 ABG Base Excess ABG Hemoglobin Oxyhemoglobin Sodium 169 H* D Potassium 5.1 H Chloride 121.5 H Carbon Dioxide BUN 34 H Creatinine 1.3 H D Glucose 133 H POC Glucose 131 H Lactic Acid Calcium 10.3 H Phosphorus Magnesium Direct Bilirubin AST ALT Alkaline Phosphatase Lactate Dehydrogenase Troponin T C-Reactive Protein Total Protein Albumin Prealbumin Triglycerides Cholesterol LDL Cholesterol Direct HDL Cholesterol Urine pH Urine WBC (Auto) Urine Creatinine Urine Total Protein Fluid Total Protein Vancomycin Trough Rheumatoid Factor Complement C4 Miscellaneous Test Crossmatch 11/30/16 11/30/16 11/30/16 05:45 11:10 17:26 WBC RBC Hgb Hct MCV MCH MCHC RDW Plt Count Lymph % (Auto) [place] % (Auto) Lymph # [place] # Baso # Seg Neutrophils % Seg Neuts % (Manual) Lymphocytes % (Manual) Monocytes % (Manual) Eosinophils % (Manual) Basophils % (Manual) Nucleated RBC % Seg Neutrophils # Seg Neutrophils # Man Lymphocytes # (Manual) Monocytes # (Manual) Eosinophils # (Manual) Basophils # (Manual) PT INR Fibrinogen dRVVT Confirm Interp Factor V Activity POC ABG pH POC ABG pCO2 POC ABG pO2 ABG pO2 ABG HCO3 ABG Base Excess ABG Hemoglobin Oxyhemoglobin Sodium Potassium Chloride Carbon Dioxide BUN 45 H Creatinine 1.6 H Glucose 131 H POC Glucose 146 H 134 H Lactic Acid Calcium Phosphorus Magnesium Direct Bilirubin AST ALT Alkaline Phosphatase Lactate Dehydrogenase Troponin T C-Reactive Protein Total Protein Albumin Prealbumin Triglycerides Cholesterol LDL Cholesterol Direct HDL Cholesterol Urine pH Urine WBC (Auto) Urine Creatinine Urine Total Protein Fluid Total Protein Vancomycin Trough Rheumatoid Factor Complement C4 Miscellaneous Test Crossmatch 11/30/16 12/01/16 12/01/16 23:35 00:06 03:35 WBC RBC Hgb Hct MCV MCH MCHC RDW Plt Count Lymph % (Auto) [place] % (Auto) Lymph # [place] # Baso # Seg Neutrophils % Seg Neuts % (Manual) Lymphocytes % (Manual) Monocytes % (Manual) Eosinophils % (Manual) Basophils % (Manual) Nucleated RBC % Seg Neutrophils # Seg Neutrophils # Man Lymphocytes # (Manual) Monocytes # (Manual) Eosinophils # (Manual) Basophils # (Manual) PT INR Fibrinogen dRVVT Confirm Interp Factor V Activity POC ABG pH POC ABG pCO2 POC ABG pO2 ABG pO2 ABG HCO3 ABG Base Excess ABG Hemoglobin 6.9 L Oxyhemoglobin Sodium Potassium Chloride Carbon Dioxide BUN 58 H Creatinine 1.8 H Glucose 146 H POC Glucose 151 H Lactic Acid Calcium Phosphorus Magnesium Direct Bilirubin AST ALT Alkaline Phosphatase Lactate Dehydrogenase Troponin T C-Reactive Protein Total Protein Albumin Prealbumin Triglycerides Cholesterol LDL Cholesterol Direct HDL Cholesterol Urine pH Urine WBC (Auto) Urine Creatinine Urine Total Protein Fluid Total Protein Vancomycin Trough Rheumatoid Factor Complement C4 Miscellaneous Test Crossmatch 12/01/16 12/01/16 12/01/16 03:35 05:47 11:52 WBC 12.3 H RBC 2.82 L Hgb 7.8 L Hct 23.7 L MCV MCH MCHC RDW 16.7 H Plt Count Lymph % (Auto) [place] % (Auto) 9.8 H Lymph # [place] # 1.2 H Baso # Seg Neutrophils % Seg Neuts % (Manual) Lymphocytes % (Manual) Monocytes % (Manual) Eosinophils % (Manual) Basophils % (Manual) Nucleated RBC % Seg Neutrophils # 8.4 H Seg Neutrophils # Man Lymphocytes # (Manual) Monocytes # (Manual) Eosinophils # (Manual) Basophils # (Manual) PT INR Fibrinogen dRVVT Confirm Interp Factor V Activity POC ABG pH POC ABG pCO2 POC ABG pO2 ABG pO2 ABG HCO3 ABG Base Excess ABG Hemoglobin Oxyhemoglobin Sodium Potassium Chloride Carbon Dioxide BUN Creatinine Glucose POC Glucose 152 H 152 H Lactic Acid Calcium Phosphorus Magnesium Direct Bilirubin AST ALT Alkaline Phosphatase Lactate Dehydrogenase Troponin T C-Reactive Protein Total Protein Albumin Prealbumin Triglycerides Cholesterol LDL Cholesterol Direct HDL Cholesterol Urine pH Urine WBC (Auto) Urine Creatinine Urine Total Protein Fluid Total Protein Vancomycin Trough Rheumatoid Factor Complement C4 Miscellaneous Test Crossmatch 12/01/16 12/01/16 12/02/16 17:40 23:41 05:00 WBC RBC Hgb Hct MCV MCH MCHC RDW Plt Count Lymph % (Auto) [place] % (Auto) Lymph # [place] # Baso # Seg Neutrophils % Seg Neuts % (Manual) Lymphocytes % (Manual) Monocytes % (Manual) Eosinophils % (Manual) Basophils % (Manual) Nucleated RBC % Seg Neutrophils # Seg Neutrophils # Man Lymphocytes # (Manual) Monocytes # (Manual) Eosinophils # (Manual) Basophils # (Manual) PT INR Fibrinogen dRVVT Confirm Interp Factor V Activity POC ABG pH POC ABG pCO2 POC ABG pO2 ABG pO2 ABG HCO3 ABG Base Excess ABG Hemoglobin Oxyhemoglobin Sodium Potassium Chloride Carbon Dioxide BUN 45 H Creatinine Glucose 115 H POC Glucose 140 H 144 H Lactic Acid Calcium Phosphorus Magnesium Direct Bilirubin AST ALT Alkaline Phosphatase Lactate Dehydrogenase Troponin T C-Reactive Protein Total Protein Albumin Prealbumin Triglycerides Cholesterol LDL Cholesterol Direct HDL Cholesterol Urine pH Urine WBC (Auto) Urine Creatinine Urine Total Protein Fluid Total Protein Vancomycin Trough Rheumatoid Factor Complement C4 Miscellaneous Test Crossmatch 12/02/16 12/02/16 12/02/16 05:31 11:20 17:38 WBC RBC Hgb Hct MCV MCH MCHC RDW Plt Count Lymph % (Auto) [place] % (Auto) Lymph # [place] # Baso # Seg Neutrophils % Seg Neuts % (Manual) Lymphocytes % (Manual) Monocytes % (Manual) Eosinophils % (Manual) Basophils % (Manual) Nucleated RBC % Seg Neutrophils # Seg Neutrophils # Man Lymphocytes # (Manual) Monocytes # (Manual) Eosinophils # (Manual) Basophils # (Manual) PT INR Fibrinogen dRVVT Confirm Interp Factor V Activity POC ABG pH POC ABG pCO2 POC ABG pO2 ABG pO2 ABG HCO3 ABG Base Excess ABG Hemoglobin Oxyhemoglobin Sodium Potassium Chloride Carbon Dioxide BUN Creatinine Glucose POC Glucose 136 H 177 H 139 H Lactic Acid Calcium Phosphorus Magnesium Direct Bilirubin AST ALT Alkaline Phosphatase Lactate Dehydrogenase Troponin T C-Reactive Protein Total Protein Albumin Prealbumin Triglycerides Cholesterol LDL Cholesterol Direct HDL Cholesterol Urine pH Urine WBC (Auto) Urine Creatinine Urine Total Protein Fluid Total Protein Vancomycin Trough Rheumatoid Factor Complement C4 Miscellaneous Test Crossmatch 12/02/16 12/03/16 12/03/16 23:43 04:00 04:00 WBC 20.4 H RBC 2.74 L Hgb 7.4 L Hct 23.6 L MCV MCH 27 L MCHC RDW 17.1 H Plt Count Lymph % (Auto) [place] % (Auto) Lymph # [place] # Baso # Seg Neutrophils % Seg Neuts % (Manual) 31.0 L Lymphocytes % (Manual) Monocytes % (Manual) Eosinophils % (Manual) Basophils % (Manual) Nucleated RBC % Seg Neutrophils # Seg Neutrophils # Man Lymphocytes # (Manual) Monocytes # (Manual) Eosinophils # (Manual) Basophils # (Manual) PT INR Fibrinogen dRVVT Confirm Interp Factor V Activity POC ABG pH POC ABG pCO2 POC ABG pO2 ABG pO2 ABG HCO3 ABG Base Excess ABG Hemoglobin Oxyhemoglobin Sodium Potassium Chloride Carbon Dioxide BUN 61 H Creatinine 1.6 H Glucose 119 H POC Glucose 158 H Lactic Acid Calcium Phosphorus Magnesium Direct Bilirubin AST ALT Alkaline Phosphatase Lactate Dehydrogenase Troponin T C-Reactive Protein Total Protein Albumin Prealbumin Triglycerides Cholesterol LDL Cholesterol Direct HDL Cholesterol Urine pH Urine WBC (Auto) Urine Creatinine Urine Total Protein Fluid Total Protein Vancomycin Trough Rheumatoid Factor Complement C4 Miscellaneous Test Crossmatch 12/03/16 12/03/16 12/03/16 05:02 12:11 18:16 WBC RBC Hgb Hct MCV MCH MCHC RDW Plt Count Lymph % (Auto) [place] % (Auto) Lymph # [place] # Baso # Seg Neutrophils % Seg Neuts % (Manual) Lymphocytes % (Manual) Monocytes % (Manual) Eosinophils % (Manual) Basophils % (Manual) Nucleated RBC % Seg Neutrophils # Seg Neutrophils # Man Lymphocytes # (Manual) Monocytes # (Manual) Eosinophils # (Manual) Basophils # (Manual) PT INR Fibrinogen dRVVT Confirm Interp Factor V Activity POC ABG pH POC ABG pCO2 POC ABG pO2 ABG pO2 ABG HCO3 ABG Base Excess ABG Hemoglobin Oxyhemoglobin Sodium Potassium Chloride Carbon Dioxide BUN Creatinine Glucose POC Glucose 146 H 157 H 124 H Lactic Acid Calcium Phosphorus Magnesium Direct Bilirubin AST ALT Alkaline Phosphatase Lactate Dehydrogenase Troponin T C-Reactive Protein Total Protein Albumin Prealbumin Triglycerides Cholesterol LDL Cholesterol Direct HDL Cholesterol Urine pH Urine WBC (Auto) Urine Creatinine Urine Total Protein Fluid Total Protein Vancomycin Trough Rheumatoid Factor Complement C4 Miscellaneous Test Crossmatch 12/03/16 12/04/16 12/04/16 23:41 04:00 04:45 WBC RBC Hgb Hct MCV MCH MCHC RDW Plt Count Lymph % (Auto) [place] % (Auto) Lymph # [place] # Baso # Seg Neutrophils % Seg Neuts % (Manual) Lymphocytes % (Manual) Monocytes % (Manual) Eosinophils % (Manual) Basophils % (Manual) Nucleated RBC % Seg Neutrophils # Seg Neutrophils # Man Lymphocytes # (Manual) Monocytes # (Manual) Eosinophils # (Manual) Basophils # (Manual) PT INR Fibrinogen dRVVT Confirm Interp Factor V Activity POC ABG pH POC ABG pCO2 POC ABG pO2 ABG pO2 ABG HCO3 ABG Base Excess ABG Hemoglobin Oxyhemoglobin Sodium Potassium Chloride Carbon Dioxide BUN 76 H Creatinine 1.6 H Glucose POC Glucose 130 H 136 H Lactic Acid Calcium Phosphorus Magnesium Direct Bilirubin AST ALT Alkaline Phosphatase 155 H Lactate Dehydrogenase Troponin T C-Reactive Protein Total Protein 5.5 L Albumin 1.5 L Prealbumin Triglycerides Cholesterol LDL Cholesterol Direct HDL Cholesterol Urine pH Urine WBC (Auto) Urine Creatinine Urine Total Protein Fluid Total Protein Vancomycin Trough Rheumatoid Factor Complement C4 Miscellaneous Test Crossmatch 12/04/16 12/04/16 12/05/16 12:08 17:23 00:10 WBC RBC Hgb Hct MCV MCH MCHC RDW Plt Count Lymph % (Auto) [place] % (Auto) Lymph # [place] # Baso # Seg Neutrophils % Seg Neuts % (Manual) Lymphocytes % (Manual) Monocytes % (Manual) Eosinophils % (Manual) Basophils % (Manual) Nucleated RBC % Seg Neutrophils # Seg Neutrophils # Man Lymphocytes # (Manual) Monocytes # (Manual) Eosinophils # (Manual) Basophils # (Manual) PT INR Fibrinogen dRVVT Confirm Interp Factor V Activity POC ABG pH POC ABG pCO2 POC ABG pO2 ABG pO2 ABG HCO3 ABG Base Excess ABG Hemoglobin Oxyhemoglobin Sodium Potassium Chloride Carbon Dioxide BUN Creatinine Glucose POC Glucose 114 H 129 H 124 H Lactic Acid Calcium Phosphorus Magnesium Direct Bilirubin AST ALT Alkaline Phosphatase Lactate Dehydrogenase Troponin T C-Reactive Protein Total Protein Albumin Prealbumin Triglycerides Cholesterol LDL Cholesterol Direct HDL Cholesterol Urine pH Urine WBC (Auto) Urine Creatinine Urine Total Protein Fluid Total Protein Vancomycin Trough Rheumatoid Factor Complement C4 Miscellaneous Test Crossmatch 12/05/16 12/05/16 12/05/16 05:00 05:00 05:18 WBC RBC Hgb Hct MCV MCH MCHC RDW Plt Count Lymph % (Auto) [place] % (Auto) Lymph # [place] # Baso # Seg Neutrophils % Seg Neuts % (Manual) Lymphocytes % (Manual) Monocytes % (Manual) Eosinophils % (Manual) Basophils % (Manual) Nucleated RBC % Seg Neutrophils # Seg Neutrophils # Man Lymphocytes # (Manual) Monocytes # (Manual) Eosinophils # (Manual) Basophils # (Manual) PT INR Fibrinogen dRVVT Confirm Interp Factor V Activity POC ABG pH POC ABG pCO2 POC ABG pO2 ABG pO2 ABG HCO3 ABG Base Excess ABG Hemoglobin Oxyhemoglobin Sodium Potassium Chloride Carbon Dioxide 21 L BUN 85 H Creatinine 1.9 H Glucose 131 H POC Glucose 154 H Lactic Acid Calcium Phosphorus Magnesium Direct Bilirubin AST ALT Alkaline Phosphatase Lactate Dehydrogenase Troponin T C-Reactive Protein 19.30 H Total Protein Albumin Prealbumin Triglycerides Cholesterol LDL Cholesterol Direct HDL Cholesterol Urine pH Urine WBC (Auto) Urine Creatinine Urine Total Protein Fluid Total Protein Vancomycin Trough Rheumatoid Factor Complement C4 Miscellaneous Test Crossmatch 12/05/16 12/05/16 12/05/16 11:43 17:46 23:25 WBC RBC Hgb Hct MCV MCH MCHC RDW Plt Count Lymph % (Auto) [place] % (Auto) Lymph # [place] # Baso # Seg Neutrophils % Seg Neuts % (Manual) Lymphocytes % (Manual) Monocytes % (Manual) Eosinophils % (Manual) Basophils % (Manual) Nucleated RBC % Seg Neutrophils # Seg Neutrophils # Man Lymphocytes # (Manual) Monocytes # (Manual) Eosinophils # (Manual) Basophils # (Manual) PT INR Fibrinogen dRVVT Confirm Interp Factor V Activity POC ABG pH POC ABG pCO2 POC ABG pO2 ABG pO2 ABG HCO3 ABG Base Excess ABG Hemoglobin Oxyhemoglobin Sodium Potassium Chloride Carbon Dioxide BUN Creatinine Glucose POC Glucose 117 H 113 H 111 H Lactic Acid Calcium Phosphorus Magnesium Direct Bilirubin AST ALT Alkaline Phosphatase Lactate Dehydrogenase Troponin T C-Reactive Protein Total Protein Albumin Prealbumin Triglycerides Cholesterol LDL Cholesterol Direct HDL Cholesterol Urine pH Urine WBC (Auto) Urine Creatinine Urine Total Protein Fluid Total Protein Vancomycin Trough Rheumatoid Factor Complement C4 Miscellaneous Test Crossmatch 12/05/16 12/06/16 12/06/16 Unknown 04:58 06:00 WBC RBC Hgb Hct MCV MCH MCHC RDW Plt Count Lymph % (Auto) [place] % (Auto) Lymph # [place] # Baso # Seg Neutrophils % Seg Neuts % (Manual) Lymphocytes % (Manual) Monocytes % (Manual) Eosinophils % (Manual) Basophils % (Manual) Nucleated RBC % Seg Neutrophils # Seg Neutrophils # Man Lymphocytes # (Manual) Monocytes # (Manual) Eosinophils # (Manual) Basophils # (Manual) PT INR Fibrinogen dRVVT Confirm Interp Factor V Activity POC ABG pH POC ABG pCO2 POC ABG pO2 ABG pO2 75.2 L ABG HCO3 ABG Base Excess -3.4 L ABG Hemoglobin 7.4 L Oxyhemoglobin 94.5 L Sodium Potassium Chloride Carbon Dioxide 20 L BUN 99 H Creatinine 2.1 H Glucose 126 H POC Glucose 145 H Lactic Acid Calcium Phosphorus 4.80 H Magnesium Direct Bilirubin AST ALT Alkaline Phosphatase Lactate Dehydrogenase Troponin T C-Reactive Protein Total Protein Albumin Prealbumin Triglycerides Cholesterol LDL Cholesterol Direct HDL Cholesterol Urine pH Urine WBC (Auto) Urine Creatinine Urine Total Protein Fluid Total Protein Vancomycin Trough Rheumatoid Factor Complement C4 Miscellaneous Test Crossmatch 12/06/16 12/06/16 12/06/16 06:46 11:54 17:55 WBC RBC Hgb 8.3 L Hct 26.4 L MCV MCH MCHC RDW Plt Count Lymph % (Auto) [place] % (Auto) Lymph # [place] # Baso # Seg Neutrophils % Seg Neuts % (Manual) Lymphocytes % (Manual) Monocytes % (Manual) Eosinophils % (Manual) Basophils % (Manual) Nucleated RBC % Seg Neutrophils # Seg Neutrophils # Man Lymphocytes # (Manual) Monocytes # (Manual) Eosinophils # (Manual) Basophils # (Manual) PT INR Fibrinogen dRVVT Confirm Interp Factor V Activity POC ABG pH POC ABG pCO2 POC ABG pO2 ABG pO2 ABG HCO3 ABG Base Excess ABG Hemoglobin Oxyhemoglobin Sodium Potassium Chloride Carbon Dioxide BUN Creatinine Glucose POC Glucose 126 H 157 H Lactic Acid Calcium Phosphorus Magnesium Direct Bilirubin AST ALT Alkaline Phosphatase Lactate Dehydrogenase Troponin T C-Reactive Protein Total Protein Albumin Prealbumin Triglycerides Cholesterol LDL Cholesterol Direct HDL Cholesterol Urine pH Urine WBC (Auto) Urine Creatinine Urine Total Protein Fluid Total Protein Vancomycin Trough Rheumatoid Factor Complement C4 Miscellaneous Test Crossmatch 12/06/16 12/07/16 12/07/16 23:59 05:34 06:30 WBC RBC Hgb Hct MCV MCH MCHC RDW Plt Count Lymph % (Auto) [place] % (Auto) Lymph # [place] # Baso # Seg Neutrophils % Seg Neuts % (Manual) Lymphocytes % (Manual) Monocytes % (Manual) Eosinophils % (Manual) Basophils % (Manual) Nucleated RBC % Seg Neutrophils # Seg Neutrophils # Man Lymphocytes # (Manual) Monocytes # (Manual) Eosinophils # (Manual) Basophils # (Manual) PT INR Fibrinogen dRVVT Confirm Interp Factor V Activity POC ABG pH POC ABG pCO2 POC ABG pO2 ABG pO2 ABG HCO3 ABG Base Excess ABG Hemoglobin Oxyhemoglobin Sodium Potassium Chloride Carbon Dioxide BUN 67 H Creatinine 1.4 H Glucose 126 H POC Glucose 129 H 129 H Lactic Acid Calcium Phosphorus Magnesium Direct Bilirubin AST ALT Alkaline Phosphatase Lactate Dehydrogenase Troponin T C-Reactive Protein Total Protein Albumin Prealbumin Triglycerides Cholesterol LDL Cholesterol Direct HDL Cholesterol Urine pH Urine WBC (Auto) Urine Creatinine Urine Total Protein Fluid Total Protein Vancomycin Trough Rheumatoid Factor Complement C4 Miscellaneous Test Crossmatch 12/07/16 12/07/16 12/07/16 06:30 08:00 09:45 WBC 18.8 H RBC 2.52 L Hgb 6.9 L 6.8 L Hct 21.2 L 21.1 L MCV MCH 27 L MCHC RDW 18.0 H Plt Count Lymph % (Auto) [place] % (Auto) 9.9 H Lymph # [place] # 1.9 H Baso # Seg Neutrophils % 71.8 H Seg Neuts % (Manual) Lymphocytes % (Manual) Monocytes % (Manual) Eosinophils % (Manual) Basophils % (Manual) Nucleated RBC % Seg Neutrophils # 13.5 H Seg Neutrophils # Man Lymphocytes # (Manual) Monocytes # (Manual) Eosinophils # (Manual) Basophils # (Manual) PT INR Fibrinogen dRVVT Confirm Interp Factor V Activity POC ABG pH POC ABG pCO2 POC ABG pO2 ABG pO2 ABG HCO3 ABG Base Excess ABG Hemoglobin Oxyhemoglobin Sodium Potassium Chloride Carbon Dioxide BUN Creatinine Glucose POC Glucose Lactic Acid Calcium Phosphorus Magnesium Direct Bilirubin AST ALT Alkaline Phosphatase Lactate Dehydrogenase Troponin T C-Reactive Protein Total Protein Albumin Prealbumin Triglycerides Cholesterol LDL Cholesterol Direct HDL Cholesterol Urine pH Urine WBC (Auto) Urine Creatinine Urine Total Protein Fluid Total Protein Vancomycin Trough Rheumatoid Factor Complement C4 Miscellaneous Test Crossmatch See Detail 12/07/16 12/07/16 12/07/16 11:44 18:19 23:59 WBC RBC Hgb Hct MCV MCH MCHC RDW Plt Count Lymph % (Auto) [place] % (Auto) Lymph # [place] # Baso # Seg Neutrophils % Seg Neuts % (Manual) Lymphocytes % (Manual) Monocytes % (Manual) Eosinophils % (Manual) Basophils % (Manual) Nucleated RBC % Seg Neutrophils # Seg Neutrophils # Man Lymphocytes # (Manual) Monocytes # (Manual) Eosinophils # (Manual) Basophils # (Manual) PT INR Fibrinogen dRVVT Confirm Interp Factor V Activity POC ABG pH POC ABG pCO2 POC ABG pO2 ABG pO2 ABG HCO3 ABG Base Excess ABG Hemoglobin Oxyhemoglobin Sodium Potassium Chloride Carbon Dioxide BUN Creatinine Glucose POC Glucose 137 H 138 H 133 H Lactic Acid Calcium Phosphorus Magnesium Direct Bilirubin AST ALT Alkaline Phosphatase Lactate Dehydrogenase Troponin T C-Reactive Protein Total Protein Albumin Prealbumin Triglycerides Cholesterol LDL Cholesterol Direct HDL Cholesterol Urine pH Urine WBC (Auto) Urine Creatinine Urine Total Protein Fluid Total Protein Vancomycin Trough Rheumatoid Factor Complement C4 Miscellaneous Test Crossmatch 12/08/16 12/08/16 12/08/16 05:25 05:30 05:30 WBC 23.8 H RBC 2.88 L Hgb 8.1 L Hct 24.3 L MCV MCH MCHC RDW 16.7 H Plt Count Lymph % (Auto) [place] % (Auto) Lymph # [place] # Baso # Seg Neutrophils % Seg Neuts % (Manual) 76.0 H Lymphocytes % (Manual) 9.0 L Monocytes % (Manual) 9.0 H Eosinophils % (Manual) Basophils % (Manual) Nucleated RBC % Seg Neutrophils # Seg Neutrophils # Man 18.1 H Lymphocytes # (Manual) Monocytes # (Manual) 2.1 H Eosinophils # (Manual) Basophils # (Manual) PT INR Fibrinogen dRVVT Confirm Interp Factor V Activity POC ABG pH POC ABG pCO2 POC ABG pO2 ABG pO2 ABG HCO3 ABG Base Excess ABG Hemoglobin Oxyhemoglobin Sodium Potassium Chloride Carbon Dioxide 21 L BUN 76 H Creatinine 1.6 H Glucose 133 H POC Glucose 177 H Lactic Acid Calcium Phosphorus Magnesium Direct Bilirubin AST ALT Alkaline Phosphatase Lactate Dehydrogenase Troponin T C-Reactive Protein Total Protein Albumin Prealbumin Triglycerides Cholesterol LDL Cholesterol Direct HDL Cholesterol Urine pH Urine WBC (Auto) Urine Creatinine Urine Total Protein Fluid Total Protein Vancomycin Trough Rheumatoid Factor Complement C4 Miscellaneous Test Crossmatch 12/08/16 12/08/16 12/09/16 11:45 18:00 00:00 WBC RBC Hgb Hct MCV MCH MCHC RDW Plt Count Lymph % (Auto) [place] % (Auto) Lymph # [place] # Baso # Seg Neutrophils % Seg Neuts % (Manual) Lymphocytes % (Manual) Monocytes % (Manual) Eosinophils % (Manual) Basophils % (Manual) Nucleated RBC % Seg Neutrophils # Seg Neutrophils # Man Lymphocytes # (Manual) Monocytes # (Manual) Eosinophils # (Manual) Basophils # (Manual) PT INR Fibrinogen dRVVT Confirm Interp Factor V Activity POC ABG pH POC ABG pCO2 POC ABG pO2 ABG pO2 ABG HCO3 ABG Base Excess ABG Hemoglobin Oxyhemoglobin Sodium Potassium Chloride Carbon Dioxide BUN Creatinine Glucose POC Glucose 163 H 123 H 137 H Lactic Acid Calcium Phosphorus Magnesium Direct Bilirubin AST ALT Alkaline Phosphatase Lactate Dehydrogenase Troponin T C-Reactive Protein Total Protein Albumin Prealbumin Triglycerides Cholesterol LDL Cholesterol Direct HDL Cholesterol Urine pH Urine WBC (Auto) Urine Creatinine Urine Total Protein Fluid Total Protein Vancomycin Trough Rheumatoid Factor Complement C4 Miscellaneous Test Crossmatch 12/09/16 12/09/16 12/09/16 05:34 06:00 06:00 WBC 15.5 H RBC 2.87 L Hgb 8.0 L Hct 24.2 L MCV MCH MCHC RDW 17.2 H Plt Count Lymph % (Auto) [place] % (Auto) 11.6 H Lymph # [place] # 1.8 H Baso # Seg Neutrophils % 70.8 H Seg Neuts % (Manual) Lymphocytes % (Manual) Monocytes % (Manual) Eosinophils % (Manual) Basophils % (Manual) Nucleated RBC % Seg Neutrophils # 11.0 H Seg Neutrophils # Man Lymphocytes # (Manual) Monocytes # (Manual) Eosinophils # (Manual) Basophils # (Manual) PT INR Fibrinogen dRVVT Confirm Interp Factor V Activity POC ABG pH POC ABG pCO2 POC ABG pO2 ABG pO2 ABG HCO3 ABG Base Excess ABG Hemoglobin Oxyhemoglobin Sodium Potassium Chloride Carbon Dioxide BUN 51 H Creatinine Glucose 117 H POC Glucose 136 H Lactic Acid Calcium Phosphorus Magnesium Direct Bilirubin AST ALT Alkaline Phosphatase Lactate Dehydrogenase Troponin T C-Reactive Protein Total Protein Albumin Prealbumin Triglycerides Cholesterol LDL Cholesterol Direct HDL Cholesterol Urine pH Urine WBC (Auto) Urine Creatinine Urine Total Protein Fluid Total Protein Vancomycin Trough Rheumatoid Factor Complement C4 Miscellaneous Test Crossmatch 12/09/16 12/09/16 12/09/16 12:29 17:52 23:10 WBC RBC Hgb Hct MCV MCH MCHC RDW Plt Count Lymph % (Auto) [place] % (Auto) Lymph # [place] # Baso # Seg Neutrophils % Seg Neuts % (Manual) Lymphocytes % (Manual) Monocytes % (Manual) Eosinophils % (Manual) Basophils % (Manual) Nucleated RBC % Seg Neutrophils # Seg Neutrophils # Man Lymphocytes # (Manual) Monocytes # (Manual) Eosinophils # (Manual) Basophils # (Manual) PT INR Fibrinogen dRVVT Confirm Interp Factor V Activity POC ABG pH POC ABG pCO2 POC ABG pO2 ABG pO2 ABG HCO3 ABG Base Excess ABG Hemoglobin Oxyhemoglobin Sodium Potassium Chloride Carbon Dioxide BUN Creatinine Glucose POC Glucose 139 H 140 H 129 H Lactic Acid Calcium Phosphorus Magnesium Direct Bilirubin AST ALT Alkaline Phosphatase Lactate Dehydrogenase Troponin T C-Reactive Protein Total Protein Albumin Prealbumin Triglycerides Cholesterol LDL Cholesterol Direct HDL Cholesterol Urine pH Urine WBC (Auto) Urine Creatinine Urine Total Protein Fluid Total Protein Vancomycin Trough Rheumatoid Factor Complement C4 Miscellaneous Test Crossmatch 12/10/16 12/10/16 12/10/16 05:00 05:00 06:54 WBC 15.7 H RBC 2.87 L Hgb 8.2 L Hct 24.4 L MCV MCH MCHC RDW 17.2 H Plt Count Lymph % (Auto) [place] % (Auto) 8.3 H Lymph # [place] # 1.3 H Baso # Seg Neutrophils % 72.8 H Seg Neuts % (Manual) Lymphocytes % (Manual) Monocytes % (Manual) Eosinophils % (Manual) Basophils % (Manual) Nucleated RBC % Seg Neutrophils # 11.4 H Seg Neutrophils # Man Lymphocytes # (Manual) Monocytes # (Manual) Eosinophils # (Manual) Basophils # (Manual) PT INR Fibrinogen dRVVT Confirm Interp Factor V Activity POC ABG pH POC ABG pCO2 POC ABG pO2 ABG pO2 ABG HCO3 ABG Base Excess ABG Hemoglobin Oxyhemoglobin Sodium Potassium Chloride Carbon Dioxide BUN 64 H Creatinine 1.4 H Glucose 134 H POC Glucose 154 H Lactic Acid Calcium Phosphorus Magnesium Direct Bilirubin AST ALT Alkaline Phosphatase Lactate Dehydrogenase Troponin T C-Reactive Protein Total Protein Albumin Prealbumin Triglycerides Cholesterol LDL Cholesterol Direct HDL Cholesterol Urine pH Urine WBC (Auto) Urine Creatinine Urine Total Protein Fluid Total Protein Vancomycin Trough Rheumatoid Factor Complement C4 Miscellaneous Test Crossmatch 12/10/16 12/10/16 12/10/16 11:58 17:29 23:52 WBC RBC Hgb Hct MCV MCH MCHC RDW Plt Count Lymph % (Auto) [place] % (Auto) Lymph # [place] # Baso # Seg Neutrophils % Seg Neuts % (Manual) Lymphocytes % (Manual) Monocytes % (Manual) Eosinophils % (Manual) Basophils % (Manual) Nucleated RBC % Seg Neutrophils # Seg Neutrophils # Man Lymphocytes # (Manual) Monocytes # (Manual) Eosinophils # (Manual) Basophils # (Manual) PT INR Fibrinogen dRVVT Confirm Interp Factor V Activity POC ABG pH POC ABG pCO2 POC ABG pO2 ABG pO2 ABG HCO3 ABG Base Excess ABG Hemoglobin Oxyhemoglobin Sodium Potassium Chloride Carbon Dioxide BUN Creatinine Glucose POC Glucose 144 H 163 H 125 H Lactic Acid Calcium Phosphorus Magnesium Direct Bilirubin AST ALT Alkaline Phosphatase Lactate Dehydrogenase Troponin T C-Reactive Protein Total Protein Albumin Prealbumin Triglycerides Cholesterol LDL Cholesterol Direct HDL Cholesterol Urine pH Urine WBC (Auto) Urine Creatinine Urine Total Protein Fluid Total Protein Vancomycin Trough Rheumatoid Factor Complement C4 Miscellaneous Test Crossmatch 12/11/16 12/11/16 12/11/16 05:38 06:30 06:30 WBC 14.4 H RBC 2.76 L Hgb 7.7 L Hct 23.4 L MCV MCH MCHC RDW 17.2 H Plt Count Lymph % (Auto) [place] % (Auto) 8.8 H Lymph # [place] # 1.3 H Baso # Seg Neutrophils % 72.5 H Seg Neuts % (Manual) Lymphocytes % (Manual) Monocytes % (Manual) Eosinophils % (Manual) Basophils % (Manual) Nucleated RBC % Seg Neutrophils # 10.5 H Seg Neutrophils # Man Lymphocytes # (Manual) Monocytes # (Manual) Eosinophils # (Manual) Basophils # (Manual) PT INR Fibrinogen dRVVT Confirm Interp Factor V Activity POC ABG pH POC ABG pCO2 POC ABG pO2 ABG pO2 ABG HCO3 ABG Base Excess ABG Hemoglobin Oxyhemoglobin Sodium Potassium Chloride Carbon Dioxide BUN 43 H Creatinine Glucose 124 H POC Glucose 141 H Lactic Acid Calcium 8.3 L Phosphorus Magnesium 1.60 L Direct Bilirubin AST ALT Alkaline Phosphatase Lactate Dehydrogenase Troponin T C-Reactive Protein Total Protein Albumin Prealbumin Triglycerides Cholesterol LDL Cholesterol Direct HDL Cholesterol Urine pH Urine WBC (Auto) Urine Creatinine Urine Total Protein Fluid Total Protein Vancomycin Trough Rheumatoid Factor Complement C4 Miscellaneous Test Crossmatch 12/11/16 12/11/16 12/11/16 11:15 17:59 23:48 WBC RBC Hgb Hct MCV MCH MCHC RDW Plt Count Lymph % (Auto) [place] % (Auto) Lymph # [place] # Baso # Seg Neutrophils % Seg Neuts % (Manual) Lymphocytes % (Manual) Monocytes % (Manual) Eosinophils % (Manual) Basophils % (Manual) Nucleated RBC % Seg Neutrophils # Seg Neutrophils # Man Lymphocytes # (Manual) Monocytes # (Manual) Eosinophils # (Manual) Basophils # (Manual) PT INR Fibrinogen dRVVT Confirm Interp Factor V Activity POC ABG pH POC ABG pCO2 POC ABG pO2 ABG pO2 ABG HCO3 ABG Base Excess ABG Hemoglobin Oxyhemoglobin Sodium Potassium Chloride Carbon Dioxide BUN Creatinine Glucose POC Glucose 188 H 106 H 119 H Lactic Acid Calcium Phosphorus Magnesium Direct Bilirubin AST ALT Alkaline Phosphatase Lactate Dehydrogenase Troponin T C-Reactive Protein Total Protein Albumin Prealbumin Triglycerides Cholesterol LDL Cholesterol Direct HDL Cholesterol Urine pH Urine WBC (Auto) Urine Creatinine Urine Total Protein Fluid Total Protein Vancomycin Trough Rheumatoid Factor Complement C4 Miscellaneous Test Crossmatch 12/12/16 12/12/16 12/12/16 05:00 06:01 12:20 WBC 16.7 H RBC 2.87 L Hgb 8.0 L Hct 24.2 L MCV MCH MCHC RDW 17.6 H Plt Count Lymph % (Auto) [place] % (Auto) Lymph # [place] # 1.2 H Baso # Seg Neutrophils % 75.3 H Seg Neuts % (Manual) Lymphocytes % (Manual) Monocytes % (Manual) Eosinophils % (Manual) Basophils % (Manual) Nucleated RBC % Seg Neutrophils # 12.6 H Seg Neutrophils # Man Lymphocytes # (Manual) Monocytes # (Manual) Eosinophils # (Manual) Basophils # (Manual) PT INR Fibrinogen dRVVT Confirm Interp Factor V Activity POC ABG pH POC ABG pCO2 POC ABG pO2 ABG pO2 ABG HCO3 ABG Base Excess ABG Hemoglobin Oxyhemoglobin Sodium Potassium Chloride Carbon Dioxide BUN Creatinine Glucose POC Glucose 134 H 149 H Lactic Acid Calcium Phosphorus Magnesium Direct Bilirubin AST ALT Alkaline Phosphatase Lactate Dehydrogenase Troponin T C-Reactive Protein Total Protein Albumin Prealbumin Triglycerides Cholesterol LDL Cholesterol Direct HDL Cholesterol Urine pH Urine WBC (Auto) Urine Creatinine Urine Total Protein Fluid Total Protein Vancomycin Trough Rheumatoid Factor Complement C4 Miscellaneous Test Crossmatch 12/12/16 12/12/16 12/12/16 17:38 23:01 Unknown WBC RBC Hgb Hct MCV MCH MCHC RDW Plt Count Lymph % (Auto) [place] % (Auto) Lymph # [place] # Baso # Seg Neutrophils % Seg Neuts % (Manual) Lymphocytes % (Manual) Monocytes % (Manual) Eosinophils % (Manual) Basophils % (Manual) Nucleated RBC % Seg Neutrophils # Seg Neutrophils # Man Lymphocytes # (Manual) Monocytes # (Manual) Eosinophils # (Manual) Basophils # (Manual) PT INR Fibrinogen dRVVT Confirm Interp Factor V Activity POC ABG pH POC ABG pCO2 POC ABG pO2 ABG pO2 ABG HCO3 ABG Base Excess ABG Hemoglobin Oxyhemoglobin Sodium Potassium Chloride Carbon Dioxide BUN 60 H Creatinine 1.3 H Glucose 126 H POC Glucose 127 H 144 H Lactic Acid Calcium Phosphorus Magnesium Direct Bilirubin AST ALT Alkaline Phosphatase Lactate Dehydrogenase Troponin T C-Reactive Protein Total Protein Albumin Prealbumin Triglycerides Cholesterol LDL Cholesterol Direct HDL Cholesterol Urine pH Urine WBC (Auto) Urine Creatinine Urine Total Protein Fluid Total Protein Vancomycin Trough Rheumatoid Factor Complement C4 Miscellaneous Test Crossmatch 12/13/16 12/13/16 12/13/16 04:00 04:00 05:19 WBC 18.7 H RBC 2.89 L Hgb 8.3 L Hct 24.6 L MCV MCH MCHC RDW 17.5 H Plt Count Lymph % (Auto) [place] % (Auto) Lymph # [place] # 1.3 H Baso # Seg Neutrophils % 71.5 H Seg Neuts % (Manual) Lymphocytes % (Manual) Monocytes % (Manual) Eosinophils % (Manual) Basophils % (Manual) Nucleated RBC % Seg Neutrophils # 13.4 H Seg Neutrophils # Man Lymphocytes # (Manual) Monocytes # (Manual) Eosinophils # (Manual) Basophils # (Manual) PT INR Fibrinogen dRVVT Confirm Interp Factor V Activity POC ABG pH POC ABG pCO2 POC ABG pO2 ABG pO2 ABG HCO3 ABG Base Excess ABG Hemoglobin Oxyhemoglobin Sodium Potassium Chloride Carbon Dioxide BUN 73 H Creatinine 1.5 H Glucose 141 H POC Glucose 171 H Lactic Acid Calcium Phosphorus Magnesium Direct Bilirubin AST ALT Alkaline Phosphatase Lactate Dehydrogenase Troponin T C-Reactive Protein Total Protein Albumin Prealbumin Triglycerides Cholesterol LDL Cholesterol Direct HDL Cholesterol Urine pH Urine WBC (Auto) Urine Creatinine Urine Total Protein Fluid Total Protein Vancomycin Trough Rheumatoid Factor Complement C4 Miscellaneous Test Crossmatch 12/13/16 12/13/16 12/14/16 12:28 16:48 00:01 WBC RBC Hgb Hct MCV MCH MCHC RDW Plt Count Lymph % (Auto) [place] % (Auto) Lymph # [place] # Baso # Seg Neutrophils % Seg Neuts % (Manual) Lymphocytes % (Manual) Monocytes % (Manual) Eosinophils % (Manual) Basophils % (Manual) Nucleated RBC % Seg Neutrophils # Seg Neutrophils # Man Lymphocytes # (Manual) Monocytes # (Manual) Eosinophils # (Manual) Basophils # (Manual) PT INR Fibrinogen dRVVT Confirm Interp Factor V Activity POC ABG pH POC ABG pCO2 POC ABG pO2 ABG pO2 ABG HCO3 ABG Base Excess ABG Hemoglobin Oxyhemoglobin Sodium Potassium Chloride Carbon Dioxide BUN Creatinine Glucose POC Glucose 206 H 173 H 139 H Lactic Acid Calcium Phosphorus Magnesium Direct Bilirubin AST ALT Alkaline Phosphatase Lactate Dehydrogenase Troponin T C-Reactive Protein Total Protein Albumin Prealbumin Triglycerides Cholesterol LDL Cholesterol Direct HDL Cholesterol Urine pH Urine WBC (Auto) Urine Creatinine Urine Total Protein Fluid Total Protein Vancomycin Trough Rheumatoid Factor Complement C4 Miscellaneous Test Crossmatch 12/14/16 12/14/16 12/14/16 05:16 06:10 11:17 WBC RBC Hgb Hct MCV MCH MCHC RDW Plt Count Lymph % (Auto) [place] % (Auto) Lymph # [place] # Baso # Seg Neutrophils % Seg Neuts % (Manual) Lymphocytes % (Manual) Monocytes % (Manual) Eosinophils % (Manual) Basophils % (Manual) Nucleated RBC % Seg Neutrophils # Seg Neutrophils # Man Lymphocytes # (Manual) Monocytes # (Manual) Eosinophils # (Manual) Basophils # (Manual) PT INR Fibrinogen dRVVT Confirm Interp Factor V Activity POC ABG pH POC ABG pCO2 POC ABG pO2 ABG pO2 ABG HCO3 ABG Base Excess ABG Hemoglobin Oxyhemoglobin Sodium Potassium Chloride Carbon Dioxide BUN 57 H Creatinine 1.4 H Glucose 135 H POC Glucose 158 H 137 H Lactic Acid Calcium Phosphorus Magnesium Direct Bilirubin AST ALT Alkaline Phosphatase Lactate Dehydrogenase Troponin T C-Reactive Protein Total Protein Albumin Prealbumin Triglycerides Cholesterol LDL Cholesterol Direct HDL Cholesterol Urine pH Urine WBC (Auto) Urine Creatinine Urine Total Protein Fluid Total Protein Vancomycin Trough Rheumatoid Factor Complement C4 Miscellaneous Test Crossmatch 12/14/16 12/14/16 12/15/16 17:52 23:27 04:00 WBC RBC Hgb Hct MCV MCH MCHC RDW Plt Count Lymph % (Auto) [place] % (Auto) Lymph # [place] # Baso # Seg Neutrophils % Seg Neuts % (Manual) Lymphocytes % (Manual) Monocytes % (Manual) Eosinophils % (Manual) Basophils % (Manual) Nucleated RBC % Seg Neutrophils # Seg Neutrophils # Man Lymphocytes # (Manual) Monocytes # (Manual) Eosinophils # (Manual) Basophils # (Manual) PT INR Fibrinogen dRVVT Confirm Interp Factor V Activity POC ABG pH POC ABG pCO2 POC ABG pO2 ABG pO2 ABG HCO3 ABG Base Excess ABG Hemoglobin Oxyhemoglobin Sodium Potassium Chloride 97.9 L Carbon Dioxide BUN 75 H Creatinine 1.6 H Glucose 122 H POC Glucose 149 H 163 H Lactic Acid Calcium Phosphorus 5.20 H Magnesium Direct Bilirubin AST ALT Alkaline Phosphatase Lactate Dehydrogenase Troponin T C-Reactive Protein Total Protein Albumin Prealbumin Triglycerides Cholesterol LDL Cholesterol Direct HDL Cholesterol Urine pH Urine WBC (Auto) Urine Creatinine Urine Total Protein Fluid Total Protein Vancomycin Trough Rheumatoid Factor Complement C4 Miscellaneous Test Crossmatch 12/15/16 12/15/16 12/15/16 05:50 11:24 17:01 WBC RBC Hgb Hct MCV MCH MCHC RDW Plt Count Lymph % (Auto) [place] % (Auto) Lymph # [place] # Baso # Seg Neutrophils % Seg Neuts % (Manual) Lymphocytes % (Manual) Monocytes % (Manual) Eosinophils % (Manual) Basophils % (Manual) Nucleated RBC % Seg Neutrophils # Seg Neutrophils # Man Lymphocytes # (Manual) Monocytes # (Manual) Eosinophils # (Manual) Basophils # (Manual) PT INR Fibrinogen dRVVT Confirm Interp Factor V Activity POC ABG pH POC ABG pCO2 POC ABG pO2 ABG pO2 ABG HCO3 ABG Base Excess ABG Hemoglobin Oxyhemoglobin Sodium Potassium Chloride Carbon Dioxide BUN Creatinine Glucose POC Glucose 150 H 146 H 167 H Lactic Acid Calcium Phosphorus Magnesium Direct Bilirubin AST ALT Alkaline Phosphatase Lactate Dehydrogenase Troponin T C-Reactive Protein Total Protein Albumin Prealbumin Triglycerides Cholesterol LDL Cholesterol Direct HDL Cholesterol Urine pH Urine WBC (Auto) Urine Creatinine Urine Total Protein Fluid Total Protein Vancomycin Trough Rheumatoid Factor Complement C4 Miscellaneous Test Crossmatch 12/15/16 12/16/16 12/16/16 23:34 05:25 11:24 WBC RBC Hgb Hct MCV MCH MCHC RDW Plt Count Lymph % (Auto) [place] % (Auto) Lymph # [place] # Baso # Seg Neutrophils % Seg Neuts % (Manual) Lymphocytes % (Manual) Monocytes % (Manual) Eosinophils % (Manual) Basophils % (Manual) Nucleated RBC % Seg Neutrophils # Seg Neutrophils # Man Lymphocytes # (Manual) Monocytes # (Manual) Eosinophils # (Manual) Basophils # (Manual) PT INR Fibrinogen dRVVT Confirm Interp Factor V Activity POC ABG pH POC ABG pCO2 POC ABG pO2 ABG pO2 ABG HCO3 ABG Base Excess ABG Hemoglobin Oxyhemoglobin Sodium Potassium Chloride Carbon Dioxide BUN Creatinine Glucose POC Glucose 127 H 139 H 165 H Lactic Acid Calcium Phosphorus Magnesium Direct Bilirubin AST ALT Alkaline Phosphatase Lactate Dehydrogenase Troponin T C-Reactive Protein Total Protein Albumin Prealbumin Triglycerides Cholesterol LDL Cholesterol Direct HDL Cholesterol Urine pH Urine WBC (Auto) Urine Creatinine Urine Total Protein Fluid Total Protein Vancomycin Trough Rheumatoid Factor Complement C4 Miscellaneous Test Crossmatch 12/16/16 12/16/16 12/16/16 15:30 16:25 17:31 WBC 17.8 H RBC 2.38 L Hgb 6.4 L Hct 20.3 L MCV MCH 27 L MCHC RDW 17.4 H Plt Count Lymph % (Auto) [place] % (Auto) Lymph # [place] # Baso # Seg Neutrophils % Seg Neuts % (Manual) Lymphocytes % (Manual) Monocytes % (Manual) 10.0 H Eosinophils % (Manual) Basophils % (Manual) Nucleated RBC % Seg Neutrophils # Seg Neutrophils # Man 8.5 H Lymphocytes # (Manual) Monocytes # (Manual) 1.8 H Eosinophils # (Manual) Basophils # (Manual) PT INR Fibrinogen dRVVT Confirm Interp Factor V Activity POC ABG pH POC ABG pCO2 POC ABG pO2 ABG pO2 ABG HCO3 ABG Base Excess ABG Hemoglobin Oxyhemoglobin Sodium Potassium Chloride Carbon Dioxide BUN Creatinine Glucose POC Glucose 176 H Lactic Acid Calcium Phosphorus Magnesium Direct Bilirubin AST ALT Alkaline Phosphatase Lactate Dehydrogenase Troponin T C-Reactive Protein Total Protein Albumin Prealbumin Triglycerides Cholesterol LDL Cholesterol Direct HDL Cholesterol Urine pH Urine WBC (Auto) Urine Creatinine Urine Total Protein Fluid Total Protein Vancomycin Trough Rheumatoid Factor Complement C4 Miscellaneous Test Crossmatch See Detail 12/17/16 12/17/16 12/17/16 00:14 04:00 05:00 WBC 20.0 H RBC 2.99 L Hgb 8.5 L Hct 25.7 L MCV MCH MCHC RDW 17.2 H Plt Count Lymph % (Auto) [place] % (Auto) Lymph # [place] # Baso # Seg Neutrophils % Seg Neuts % (Manual) Lymphocytes % (Manual) Monocytes % (Manual) Eosinophils % (Manual) Basophils % (Manual) Nucleated RBC % Seg Neutrophils # Seg Neutrophils # Man Lymphocytes # (Manual) Monocytes # (Manual) Eosinophils # (Manual) Basophils # (Manual) PT INR Fibrinogen dRVVT Confirm Interp Factor V Activity POC ABG pH POC ABG pCO2 POC ABG pO2 ABG pO2 ABG HCO3 ABG Base Excess ABG Hemoglobin Oxyhemoglobin Sodium Potassium Chloride 97.7 L Carbon Dioxide BUN 73 H Creatinine 1.7 H Glucose 136 H POC Glucose 148 H Lactic Acid Calcium Phosphorus 2.20 L Magnesium 2.70 H Direct Bilirubin AST ALT Alkaline Phosphatase Lactate Dehydrogenase Troponin T C-Reactive Protein Total Protein Albumin Prealbumin Triglycerides Cholesterol LDL Cholesterol Direct HDL Cholesterol Urine pH Urine WBC (Auto) Urine Creatinine Urine Total Protein Fluid Total Protein Vancomycin Trough Rheumatoid Factor Complement C4 Miscellaneous Test Crossmatch 12/17/16 12/17/16 12/17/16 05:39 12:50 16:32 WBC RBC Hgb Hct MCV MCH MCHC RDW Plt Count Lymph % (Auto) [place] % (Auto) Lymph # [place] # Baso # Seg Neutrophils % Seg Neuts % (Manual) Lymphocytes % (Manual) Monocytes % (Manual) Eosinophils % (Manual) Basophils % (Manual) Nucleated RBC % Seg Neutrophils # Seg Neutrophils # Man Lymphocytes # (Manual) Monocytes # (Manual) Eosinophils # (Manual) Basophils # (Manual) PT INR Fibrinogen dRVVT Confirm Interp Factor V Activity POC ABG pH POC ABG pCO2 POC ABG pO2 ABG pO2 ABG HCO3 ABG Base Excess ABG Hemoglobin Oxyhemoglobin Sodium Potassium Chloride Carbon Dioxide BUN Creatinine Glucose POC Glucose 162 H 146 H 169 H Lactic Acid Calcium Phosphorus Magnesium Direct Bilirubin AST ALT Alkaline Phosphatase Lactate Dehydrogenase Troponin T C-Reactive Protein Total Protein Albumin Prealbumin Triglycerides Cholesterol LDL Cholesterol Direct HDL Cholesterol Urine pH Urine WBC (Auto) Urine Creatinine Urine Total Protein Fluid Total Protein Vancomycin Trough Rheumatoid Factor Complement C4 Miscellaneous Test Crossmatch 12/17/16 12/18/16 12/18/16 23:57 05:00 05:32 WBC RBC Hgb Hct MCV MCH MCHC RDW Plt Count Lymph % (Auto) [place] % (Auto) Lymph # [place] # Baso # Seg Neutrophils % Seg Neuts % (Manual) Lymphocytes % (Manual) Monocytes % (Manual) Eosinophils % (Manual) Basophils % (Manual) Nucleated RBC % Seg Neutrophils # Seg Neutrophils # Man Lymphocytes # (Manual) Monocytes # (Manual) Eosinophils # (Manual) Basophils # (Manual) PT INR Fibrinogen dRVVT Confirm Interp Factor V Activity POC ABG pH POC ABG pCO2 POC ABG pO2 ABG pO2 ABG HCO3 ABG Base Excess ABG Hemoglobin Oxyhemoglobin Sodium Potassium Chloride 97.0 L Carbon Dioxide BUN 63 H Creatinine 1.4 H Glucose 174 H POC Glucose 145 H 201 H Lactic Acid Calcium Phosphorus 1.70 L D Magnesium Direct Bilirubin AST ALT Alkaline Phosphatase 257 H Lactate Dehydrogenase Troponin T C-Reactive Protein Total Protein 5.9 L Albumin 1.8 L Prealbumin Triglycerides Cholesterol LDL Cholesterol Direct HDL Cholesterol Urine pH Urine WBC (Auto) Urine Creatinine Urine Total Protein Fluid Total Protein Vancomycin Trough Rheumatoid Factor Complement C4 Miscellaneous Test Crossmatch 12/18/16 12/18/16 12/18/16 11:43 16:52 23:52 WBC RBC Hgb Hct MCV MCH MCHC RDW Plt Count Lymph % (Auto) [place] % (Auto) Lymph # [place] # Baso # Seg Neutrophils % Seg Neuts % (Manual) Lymphocytes % (Manual) Monocytes % (Manual) Eosinophils % (Manual) Basophils % (Manual) Nucleated RBC % Seg Neutrophils # Seg Neutrophils # Man Lymphocytes # (Manual) Monocytes # (Manual) Eosinophils # (Manual) Basophils # (Manual) PT INR Fibrinogen dRVVT Confirm Interp Factor V Activity POC ABG pH POC ABG pCO2 POC ABG pO2 ABG pO2 ABG HCO3 ABG Base Excess ABG Hemoglobin Oxyhemoglobin Sodium Potassium Chloride Carbon Dioxide BUN Creatinine Glucose POC Glucose 177 H 110 H 162 H Lactic Acid Calcium Phosphorus Magnesium Direct Bilirubin AST ALT Alkaline Phosphatase Lactate Dehydrogenase Troponin T C-Reactive Protein Total Protein Albumin Prealbumin Triglycerides Cholesterol LDL Cholesterol Direct HDL Cholesterol Urine pH Urine WBC (Auto) Urine Creatinine Urine Total Protein Fluid Total Protein Vancomycin Trough Rheumatoid Factor Complement C4 Miscellaneous Test Crossmatch 12/19/16 12/19/16 12/19/16 05:02 05:24 09:30 WBC 20.1 H RBC 2.73 L Hgb 7.6 L Hct 23.6 L MCV MCH MCHC RDW 17.6 H Plt Count Lymph % (Auto) [place] % (Auto) Lymph # [place] # Baso # Seg Neutrophils % Seg Neuts % (Manual) Lymphocytes % (Manual) 13.0 L Monocytes % (Manual) Eosinophils % (Manual) Basophils % (Manual) Nucleated RBC % 1.0 H Seg Neutrophils # Seg Neutrophils # Man 12.9 H Lymphocytes # (Manual) Monocytes # (Manual) 1.4 H Eosinophils # (Manual) Basophils # (Manual) 0.2 H PT INR Fibrinogen dRVVT Confirm Interp Factor V Activity POC ABG pH POC ABG pCO2 POC ABG pO2 ABG pO2 ABG HCO3 ABG Base Excess ABG Hemoglobin Oxyhemoglobin Sodium Potassium Chloride 97.8 L Carbon Dioxide BUN 84 H Creatinine 1.6 H Glucose 133 H POC Glucose 134 H Lactic Acid Calcium Phosphorus Magnesium Direct Bilirubin AST ALT Alkaline Phosphatase Lactate Dehydrogenase Troponin T C-Reactive Protein Total Protein Albumin Prealbumin Triglycerides Cholesterol LDL Cholesterol Direct HDL Cholesterol Urine pH Urine WBC (Auto) Urine Creatinine Urine Total Protein Fluid Total Protein Vancomycin Trough Rheumatoid Factor Complement C4 Miscellaneous Test Crossmatch 12/19/16 12/19/16 12/19/16 09:36 11:12 18:29 WBC RBC Hgb Hct MCV MCH MCHC RDW Plt Count Lymph % (Auto) [place] % (Auto) Lymph # [place] # Baso # Seg Neutrophils % Seg Neuts % (Manual) Lymphocytes % (Manual) Monocytes % (Manual) Eosinophils % (Manual) Basophils % (Manual) Nucleated RBC % Seg Neutrophils # Seg Neutrophils # Man Lymphocytes # (Manual) Monocytes # (Manual) Eosinophils # (Manual) Basophils # (Manual) PT INR Fibrinogen dRVVT Confirm Interp Factor V Activity POC ABG pH 7.503 H POC ABG pCO2 30.1 L POC ABG pO2 ABG pO2 ABG HCO3 ABG Base Excess ABG Hemoglobin Oxyhemoglobin Sodium Potassium Chloride Carbon Dioxide BUN Creatinine Glucose POC Glucose 138 H 156 H Lactic Acid Calcium Phosphorus Magnesium Direct Bilirubin AST ALT Alkaline Phosphatase Lactate Dehydrogenase Troponin T C-Reactive Protein Total Protein Albumin Prealbumin Triglycerides Cholesterol LDL Cholesterol Direct HDL Cholesterol Urine pH Urine WBC (Auto) Urine Creatinine Urine Total Protein Fluid Total Protein Vancomycin Trough Rheumatoid Factor Complement C4 Miscellaneous Test Crossmatch 12/20/16 12/20/16 12/20/16 00:03 06:17 07:07 WBC RBC Hgb Hct MCV MCH MCHC RDW Plt Count Lymph % (Auto) [place] % (Auto) Lymph # [place] # Baso # Seg Neutrophils % Seg Neuts % (Manual) Lymphocytes % (Manual) Monocytes % (Manual) Eosinophils % (Manual) Basophils % (Manual) Nucleated RBC % Seg Neutrophils # Seg Neutrophils # Man Lymphocytes # (Manual) Monocytes # (Manual) Eosinophils # (Manual) Basophils # (Manual) PT INR Fibrinogen dRVVT Confirm Interp Factor V Activity POC ABG pH POC ABG pCO2 POC ABG pO2 ABG pO2 ABG HCO3 ABG Base Excess ABG Hemoglobin Oxyhemoglobin Sodium Potassium Chloride 97.1 L Carbon Dioxide 20 L BUN 97 H Creatinine 1.8 H Glucose 153 H POC Glucose 152 H 175 H Lactic Acid Calcium Phosphorus Magnesium Direct Bilirubin AST ALT Alkaline Phosphatase Lactate Dehydrogenase Troponin T C-Reactive Protein Total Protein Albumin Prealbumin Triglycerides Cholesterol LDL Cholesterol Direct HDL Cholesterol Urine pH Urine WBC (Auto) Urine Creatinine Urine Total Protein Fluid Total Protein Vancomycin Trough Rheumatoid Factor Complement C4 Miscellaneous Test Crossmatch 12/20/16 12/20/16 12/20/16 12:00 17:42 23:53 WBC RBC Hgb Hct MCV MCH MCHC RDW Plt Count Lymph % (Auto) [place] % (Auto) Lymph # [place] # Baso # Seg Neutrophils % Seg Neuts % (Manual) Lymphocytes % (Manual) Monocytes % (Manual) Eosinophils % (Manual) Basophils % (Manual) Nucleated RBC % Seg Neutrophils # Seg Neutrophils # Man Lymphocytes # (Manual) Monocytes # (Manual) Eosinophils # (Manual) Basophils # (Manual) PT INR Fibrinogen dRVVT Confirm Interp Factor V Activity POC ABG pH POC ABG pCO2 POC ABG pO2 ABG pO2 ABG HCO3 ABG Base Excess ABG Hemoglobin Oxyhemoglobin Sodium Potassium Chloride Carbon Dioxide BUN Creatinine Glucose POC Glucose 141 H 156 H 132 H Lactic Acid Calcium Phosphorus Magnesium Direct Bilirubin AST ALT Alkaline Phosphatase Lactate Dehydrogenase Troponin T C-Reactive Protein Total Protein Albumin Prealbumin Triglycerides Cholesterol LDL Cholesterol Direct HDL Cholesterol Urine pH Urine WBC (Auto) Urine Creatinine Urine Total Protein Fluid Total Protein Vancomycin Trough Rheumatoid Factor Complement C4 Miscellaneous Test Crossmatch 12/21/16 12/21/16 12/21/16 05:49 08:50 12:19 WBC RBC Hgb Hct MCV MCH MCHC RDW Plt Count Lymph % (Auto) [place] % (Auto) Lymph # [place] # Baso # Seg Neutrophils % Seg Neuts % (Manual) Lymphocytes % (Manual) Monocytes % (Manual) Eosinophils % (Manual) Basophils % (Manual) Nucleated RBC % Seg Neutrophils # Seg Neutrophils # Man Lymphocytes # (Manual) Monocytes # (Manual) Eosinophils # (Manual) Basophils # (Manual) PT INR Fibrinogen dRVVT Confirm Interp Factor V Activity POC ABG pH POC ABG pCO2 POC ABG pO2 ABG pO2 ABG HCO3 ABG Base Excess ABG Hemoglobin Oxyhemoglobin Sodium Potassium 5.2 H D Chloride Carbon Dioxide BUN 63 H Creatinine Glucose 122 H POC Glucose 132 H 136 H Lactic Acid Calcium 8.3 L Phosphorus Magnesium Direct Bilirubin AST ALT Alkaline Phosphatase Lactate Dehydrogenase Troponin T C-Reactive Protein Total Protein Albumin Prealbumin Triglycerides Cholesterol LDL Cholesterol Direct HDL Cholesterol Urine pH Urine WBC (Auto) Urine Creatinine Urine Total Protein Fluid Total Protein Vancomycin Trough Rheumatoid Factor Complement C4 Miscellaneous Test Crossmatch 12/21/16 12/21/16 12/22/16 17:22 23:58 05:49 WBC RBC Hgb Hct MCV MCH MCHC RDW Plt Count Lymph % (Auto) [place] % (Auto) Lymph # [place] # Baso # Seg Neutrophils % Seg Neuts % (Manual) Lymphocytes % (Manual) Monocytes % (Manual) Eosinophils % (Manual) Basophils % (Manual) Nucleated RBC % Seg Neutrophils # Seg Neutrophils # Man Lymphocytes # (Manual) Monocytes # (Manual) Eosinophils # (Manual) Basophils # (Manual) PT INR Fibrinogen dRVVT Confirm Interp Factor V Activity POC ABG pH POC ABG pCO2 POC ABG pO2 ABG pO2 ABG HCO3 ABG Base Excess ABG Hemoglobin Oxyhemoglobin Sodium Potassium Chloride Carbon Dioxide BUN Creatinine Glucose POC Glucose 135 H 149 H 140 H Lactic Acid Calcium Phosphorus Magnesium Direct Bilirubin AST ALT Alkaline Phosphatase Lactate Dehydrogenase Troponin T C-Reactive Protein Total Protein Albumin Prealbumin Triglycerides Cholesterol LDL Cholesterol Direct HDL Cholesterol Urine pH Urine WBC (Auto) Urine Creatinine Urine Total Protein Fluid Total Protein Vancomycin Trough Rheumatoid Factor Complement C4 Miscellaneous Test Crossmatch 12/22/16 12/22/16 12/22/16 06:10 11:17 17:31 WBC RBC Hgb Hct MCV MCH MCHC RDW Plt Count Lymph % (Auto) [place] % (Auto) Lymph # [place] # Baso # Seg Neutrophils % Seg Neuts % (Manual) Lymphocytes % (Manual) Monocytes % (Manual) Eosinophils % (Manual) Basophils % (Manual) Nucleated RBC % Seg Neutrophils # Seg Neutrophils # Man Lymphocytes # (Manual) Monocytes # (Manual) Eosinophils # (Manual) Basophils # (Manual) PT INR Fibrinogen dRVVT Confirm Interp Factor V Activity POC ABG pH POC ABG pCO2 POC ABG pO2 ABG pO2 ABG HCO3 ABG Base Excess ABG Hemoglobin Oxyhemoglobin Sodium Potassium Chloride Carbon Dioxide BUN 76 H Creatinine 1.5 H Glucose 241 H POC Glucose 193 H 148 H Lactic Acid Calcium Phosphorus Magnesium Direct Bilirubin AST ALT Alkaline Phosphatase Lactate Dehydrogenase Troponin T C-Reactive Protein Total Protein Albumin Prealbumin Triglycerides Cholesterol LDL Cholesterol Direct HDL Cholesterol Urine pH Urine WBC (Auto) Urine Creatinine Urine Total Protein Fluid Total Protein Vancomycin Trough Rheumatoid Factor Complement C4 Miscellaneous Test Crossmatch 12/22/16 12/23/16 12/23/16 23:58 05:00 05:26 WBC RBC Hgb Hct MCV MCH MCHC RDW Plt Count Lymph % (Auto) [place] % (Auto) Lymph # [place] # Baso # Seg Neutrophils % Seg Neuts % (Manual) Lymphocytes % (Manual) Monocytes % (Manual) Eosinophils % (Manual) Basophils % (Manual) Nucleated RBC % Seg Neutrophils # Seg Neutrophils # Man Lymphocytes # (Manual) Monocytes # (Manual) Eosinophils # (Manual) Basophils # (Manual) PT INR Fibrinogen dRVVT Confirm Interp Factor V Activity POC ABG pH POC ABG pCO2 POC ABG pO2 ABG pO2 ABG HCO3 ABG Base Excess ABG Hemoglobin Oxyhemoglobin Sodium Potassium Chloride Carbon Dioxide BUN 49 H Creatinine Glucose 143 H POC Glucose 165 H 154 H Lactic Acid Calcium 8.2 L Phosphorus Magnesium 1.60 L Direct Bilirubin AST ALT Alkaline Phosphatase Lactate Dehydrogenase Troponin T C-Reactive Protein Total Protein Albumin Prealbumin Triglycerides Cholesterol LDL Cholesterol Direct HDL Cholesterol Urine pH Urine WBC (Auto) Urine Creatinine Urine Total Protein Fluid Total Protein Vancomycin Trough Rheumatoid Factor Complement C4 Miscellaneous Test Crossmatch 12/23/16 12/23/16 12/24/16 12:35 17:01 00:01 WBC RBC Hgb Hct MCV MCH MCHC RDW Plt Count Lymph % (Auto) [place] % (Auto) Lymph # [place] # Baso # Seg Neutrophils % Seg Neuts % (Manual) Lymphocytes % (Manual) Monocytes % (Manual) Eosinophils % (Manual) Basophils % (Manual) Nucleated RBC % Seg Neutrophils # Seg Neutrophils # Man Lymphocytes # (Manual) Monocytes # (Manual) Eosinophils # (Manual) Basophils # (Manual) PT INR Fibrinogen dRVVT Confirm Interp Factor V Activity POC ABG pH POC ABG pCO2 POC ABG pO2 ABG pO2 ABG HCO3 ABG Base Excess ABG Hemoglobin Oxyhemoglobin Sodium Potassium Chloride Carbon Dioxide BUN Creatinine Glucose POC Glucose 164 H 149 H 135 H Lactic Acid Calcium Phosphorus Magnesium Direct Bilirubin AST ALT Alkaline Phosphatase Lactate Dehydrogenase Troponin T C-Reactive Protein Total Protein Albumin Prealbumin Triglycerides Cholesterol LDL Cholesterol Direct HDL Cholesterol Urine pH Urine WBC (Auto) Urine Creatinine Urine Total Protein Fluid Total Protein Vancomycin Trough Rheumatoid Factor Complement C4 Miscellaneous Test Crossmatch 12/24/16 12/24/16 05:41 07:01 WBC RBC Hgb Hct MCV MCH MCHC RDW Plt Count Lymph % (Auto) [place] % (Auto) Lymph # [place] # Baso # Seg Neutrophils % Seg Neuts % (Manual) Lymphocytes % (Manual) Monocytes % (Manual) Eosinophils % (Manual) Basophils % (Manual) Nucleated RBC % Seg Neutrophils # Seg Neutrophils # Man Lymphocytes # (Manual) Monocytes # (Manual) Eosinophils # (Manual) Basophils # (Manual) PT INR Fibrinogen dRVVT Confirm Interp Factor V Activity POC ABG pH POC ABG pCO2 POC ABG pO2 ABG pO2 ABG HCO3 ABG Base Excess ABG Hemoglobin Oxyhemoglobin Sodium Potassium Chloride Carbon Dioxide BUN 72 H Creatinine 1.3 H Glucose 130 H POC Glucose 132 H Lactic Acid Calcium 8.2 L Phosphorus Magnesium Direct Bilirubin AST ALT Alkaline Phosphatase Lactate Dehydrogenase Troponin T C-Reactive Protein Total Protein Albumin Prealbumin Triglycerides Cholesterol LDL Cholesterol Direct HDL Cholesterol Urine pH Urine WBC (Auto) Urine Creatinine Urine Total Protein Fluid Total Protein Vancomycin Trough Rheumatoid Factor Complement C4 Miscellaneous Test Crossmatch Allied health notes reviewed: RT
[2016-12-24] MEDS: ALBURX 25% (ALBUMIN) IV PRN (16:30)
--- NOTE | 2016-12-24 16:53 | Progress Note ---
Assessment and Plan Assessment and plan: Patient is 46-year-old woman with a history of hypertension, diabetes, asthma, hyperlipidemia, chronic kidney disease and anxiety , who was brought in by family because, she couldn't get her words out, her face was also twisted, she was admitted for acute CVA and accelerated hypertension, she had a hx of poor adherence with her medications, and uncontrolled htn. Patient's SBP on admission was noted be greater than 260. TPA was started but this was discontinued after 5 minutes because her blood pressure became uncontrolled. The TPA was not initiated again because the patient was outside the TPA window. Status post cardiac arrest , 11/21/16 - Received CPR and was resuscitated. Fever - resolved - Antibiotic discontinued today per ID - s/p R thoracentesis on 11/14, 240cc of serous fluid removed, cx of fluid was negative - Stool negative for C. difficile Severe Sepsis with septic shock - Resolving Surgical wound infection/gram-negative sepsis/candidemia/peritonitis - PEG has been removed and pus is drained from the PEG site - Currently on tube feeding -continue wound care to ostomy sites JUANITA, ESRD - on HD per nephrology Acute CVA with infarct - Neurology input appreciated - CT shows continued evolution of left MCA infarct with slight mass effect and edema, and there is no hemorrhage - PRINCE showed hyperdynamic with ef of 75%, neither clot nor septal defect seen - MRA Brain shows near complete occlusion of M2 and M3 of the left MCA - Repeat CT scan done on 09/11, shows stable findings - carotid doppler negative - Echo shows preserved systolic function but does show some left ventricular diastolic dysfunction - continue asa and statin Persistent vegetative state - This patient's needs placement at SNF - She was denied for LTACH Acute hypoxic respiratory failure requiring MV >96hrs - Status post tracheostomy, was on T piece Nosocomial acquired aspiration pneumonia/sepsis/UTI - Recurrent - Finished a course of antibiotic Asthma/COPD exacerbation - ON trach, mechanical ventilation Status Post CVA Bilateral pleural effusion, s/p right thoracentesis A. fib with RVR Diabetes type 2. Continue sliding-scale regular insulin and Accu-Cheks. Hyperlipidemia. Continue statin Nutrition - continue tube feeds Anemia requiring multiple transfusions/acute blood loss Disposition. Very poor prognosis. The high probability of a clinically significant, sudden or life threatening deterioration of the [neurologic, CV] system(s) required my full and direct attention, intervention and personal management. The aggregate critical care time was [34] minutes. This time is in addition to time spent performing reported procedures but includes the following: [x] Data Review and interpretation [x] Patient assessment and monitoring of vital signs [x] Documentation [x] Medication orders and management History Interval history: Patient was seen and evaluated this morning, patient is in persistent vegetative state. 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 Hospitalist Physical - Physical exam Narrative exam: Patient is on mechanical ventilation Vital signs as documented. Head exam is unremarkable. No scleral icterus . Neck is without jugular venous distension, thyromegaly, or carotid bruits. Lungs are clear to auscultation. Cardiac exam reveals regular rate and Rhythm. First and second heart sounds normal. No murmurs, rubs or gallops. Abdominal exam reveals abscess draining from the PEG site, and multiple fistulas around the stomach. Extremities are nonedematous and both femoral and pedal pulses are normal. [employer]: comatose - Constitutional Vitals: Temp Pulse Resp BP Pulse Ox 97.4 F L 102 H 21 101/59 100 12/24/16 16:00 12/24/16 16:45 12/24/16 16:00 12/24/16 16:45 12/24/16 16:00 General appearance: Present: no acute distress, well-nourished, obese Results - Labs CBC & Chem 7: 12/19/16 05:02 12/24/16 07:01 Labs: Laboratory Last Values WBC 20.1 K/mm3 (4.5-11.0) H 12/19/16 05:02 RBC 2.73 M/mm3 (3.65-5.03) L 12/19/16 05:02 Hgb 7.6 gm/dl (10.1-14.3) L 12/19/16 05:02 Hct 23.6 % (30.3-42.9) L 12/19/16 05:02 MCV 86 fl (79-97) 12/19/16 05:02 MCH 28 pg (28-32) 12/19/16 05:02 MCHC 32 % (30-34) 12/19/16 05:02 RDW 17.6 % (13.2-15.2) H 12/19/16 05:02 Plt Count 354 K/mm3 (140-440) 12/19/16 05:02 Lymph % (Auto) Manager Card 12/19/16 05:02 [place] % (Auto) Manager Card 12/19/16 05:02 Eos % (Auto) Manager Card 12/19/16 05:02 Baso % (Auto) Manager Card 12/19/16 05:02 Lymph # Manager Card 12/19/16 05:02 [place] # Manager Card 12/19/16 05:02 Eos # Manager Card 12/19/16 05:02 Baso # Manager Card 12/19/16 05:02 Add Manual Diff Complete 12/19/16 05:02 Total Counted 100 12/19/16 05:02 Seg Neutrophils % Manager Card 12/19/16 05:02 Seg Neuts % (Manual) 64.0 % (40.0-70.0) 12/19/16 05:02 Band Neutrophils % 15.0 % 12/19/16 05:02 Lymphocytes % (Manual) 13.0 % (13.4-35.0) L 12/19/16 05:02 Reactive Lymphs % (Man) 0 % 12/19/16 05:02 Monocytes % (Manual) 7.0 % (0.0-7.3) 12/19/16 05:02 Eosinophils % (Manual) 0 % (0.0-4.3) 12/19/16 05:02 Basophils % (Manual) 1.0 % (0.0-1.8) 12/19/16 05:02 Metamyelocytes % 0 % 12/19/16 05:02 Myelocytes % 0 % 12/19/16 05:02 Promyelocytes % 0 % 12/19/16 05:02 Blast Cells % 0 % 12/19/16 05:02 Nucleated RBC % 1.0 % (0.0-0.9) H 12/19/16 05:02 Seg Neutrophils # Manager Card 12/19/16 05:02 Seg Neutrophils # Man 12.9 K/mm3 (1.8-7.7) H 12/19/16 05:02 Band Neutrophils # 3.0 K/mm3 12/19/16 05:02 Lymphocytes # (Manual) 2.6 K/mm3 (1.2-5.4) 12/19/16 05:02 Abs React Lymphs (Man) 0.0 K/mm3 12/19/16 05:02 Monocytes # (Manual) 1.4 K/mm3 (0.0-0.8) H 12/19/16 05:02 Eosinophils # (Manual) 0.0 K/mm3 (0.0-0.4) 12/19/16 05:02 Basophils # (Manual) 0.2 K/mm3 (0.0-0.1) H 12/19/16 05:02 Metamyelocytes # 0.0 K/mm3 12/19/16 05:02 Myelocytes # 0.0 K/mm3 12/19/16 05:02 Promyelocytes # 0.0 K/mm3 12/19/16 05:02 Blast Cells # 0.0 K/mm3 12/19/16 05:02 Pathologist Review 09/13/16 04:00 WBC Morphology Not Reportable 12/19/16 05:02 Hypersegmented Neuts Not Reportable 12/19/16 05:02 Hyposegmented Neuts Not Reportable 12/19/16 05:02 Hypogranular Neuts Not Reportable 12/19/16 05:02 Smudge Cells Not Reportable 12/19/16 05:02 Toxic Granulation Not Reportable 12/19/16 05:02 Toxic Vacuolation Not Reportable 12/19/16 05:02 Dohle Bodies Not Reportable 12/19/16 05:02 Pelger-Huet Anomaly Not Reportable 12/19/16 05:02 Jasmina Rods Not Reportable 12/19/16 05:02 Platelet Estimate Consistent w auto 12/19/16 05:02 Clumped Platelets Not Reportable 12/19/16 05:02 Plt Clumps, EDTA Not Reportable 12/19/16 05:02 Large Platelets Not Reportable 12/19/16 05:02 Giant Platelets Not Reportable 12/19/16 05:02 Platelet Satelliting Not Reportable 12/19/16 05:02 Plt Morphology Comment Not Reportable 12/19/16 05:02 RBC Morphology Not Reportable 12/19/16 05:02 Dimorphic RBCs Not Reportable 12/19/16 05:02 Polychromasia Not Reportable 12/19/16 05:02 Hypochromasia Not Reportable 12/19/16 05:02 Poikilocytosis Not Reportable 12/19/16 05:02 Anisocytosis Not Reportable 12/19/16 05:02 Microcytosis Not Reportable 12/19/16 05:02 Macrocytosis Not Reportable 12/19/16 05:02 Spherocytes Not Reportable 12/19/16 05:02 Pappenheimer Bodies Not Reportable 12/19/16 05:02 Sickle Cells Not Reportable 12/19/16 05:02 Target Cells Few 12/19/16 05:02 Tear Drop Cells Not Reportable 12/19/16 05:02 Ovalocytes Not Reportable 12/19/16 05:02 Stomatocytes Rare 12/03/16 04:00 Helmet Cells Not Reportable 12/19/16 05:02 [place] Bodies Not Reportable 12/19/16 05:02 [place] Rings Not Reportable 12/19/16 05:02 Chuck Cells Not Reportable 12/19/16 05:02 Bite Cells Not Reportable 12/19/16 05:02 Crenated Cell Not Reportable 12/19/16 05:02 Elliptocytes Not Reportable 12/19/16 05:02 Acanthocytes (Spur) Not Reportable 12/19/16 05:02 Rouleaux Not Reportable 12/19/16 05:02 Hemoglobin C Crystals Not Reportable 12/19/16 05:02 Schistocytes Not Reportable 12/19/16 05:02 Malaria parasites Not Reportable 12/19/16 05:02 ESR > 140.0 mm/Hr (0-20) 09/08/16 11:48 Jun Bodies Not Reportable 12/19/16 05:02 Hem Pathologist Commnt No 12/19/16 05:02 PT 16.8 Sec. (12.2-14.9) H 11/17/16 03:20 INR 1.37 (0.87-1.13) H 11/17/16 03:20 APTT 33.0 Sec. (24.2-36.6) 10/09/16 03:45 Thrombin Time 16.8 Sec. (15.1-19.6) 09/03/16 00:10 Fibrinogen 750 mg/dl (211-480) H 09/08/16 11:48 Lupus Anticoagulant see below 09/12/16 09:59 LA PTT Baseline See scanned report 09/12/16 09:59 dRVVT Confirm Interp Positive (Negative) H 09/12/16 09:59 dRVVT Screen 50:50 See scanned report 09/12/16 09:59 dRVVT Mix Interpret See scanned report 09/12/16 09:59 Protein C Antigen 122 % (70-140) 09/08/16 15:35 Free Protein S 97 % normal (50-147) 09/08/16 15:35 Total Protein S 109 % (70-140) 09/08/16 15:35 Antithrombin III Ag 100 % (80-120) 09/08/16 15:35 Heparin Anti-Xa, Unfract Negative (Negative) 09/29/16 13:35 Factor V Activity 182 % (65-150) H 09/08/16 15:35 POC ABG pH 7.503 (7.35-7.45) H 12/19/16 09:36 ABG pH 7.450 pH Units (7.350-7.450) 12/05/16 Unknown POC ABG pCO2 30.1 (35-45) L 12/19/16 09:36 ABG pCO2 29.6 mm Hg 12/05/16 Unknown POC ABG pO2 85 (80-105) 12/19/16 09:36 ABG pO2 75.2 mm Hg (80.0-90.0) L 12/05/16 Unknown POC ABG HCO3 23.6 12/19/16 09:36 ABG HCO3 20.1 mmol/L (20.0-26.0) 12/05/16 Unknown POC ABG Total CO2 25 12/19/16 09:36 POC ABG O2 Sat 97 12/19/16 09:36 ABG O2 Saturation 96.8 % (95.0-99.0) 12/05/16 Unknown ABG O2 Content 9.9 (0.0-44) 12/05/16 Unknown POC ABG Base Excess 1 12/19/16 09:36 ABG Base Excess -3.4 mmol/L (-2.0-3.0) L 12/05/16 Unknown ABG Hemoglobin 7.4 gm/dl (12.0-16.0) L 12/05/16 Unknown ABG Carboxyhemoglobin 1.8 % (0.0-5.0) 12/05/16 Unknown ABG Methemoglobin 0.6 % (0.0-1.5) 12/05/16 Unknown Oxyhemoglobin 94.5 % (95.0-99.0) L 12/05/16 Unknown FiO2 28 % 12/19/16 09:36 Sodium 142 mmol/L (137-145) 12/24/16 07:01 Potassium 3.9 mmol/L (3.6-5.0) 12/24/16 07:01 Chloride 101.3 mmol/L (98-107) 12/24/16 07:01 Carbon Dioxide 26 mmol/L (22-30) 12/24/16 07:01 Anion Gap 19 mmol/L 12/24/16 07:01 BUN 72 mg/dL (7-17) H 12/24/16 07:01 Creatinine 1.3 mg/dL (0.7-1.2) H 12/24/16 07:01 Estimated GFR 54 ml/min 12/24/16 07:01 BUN/Creatinine Ratio 55 % 12/24/16 07:01 Glucose 130 mg/dL (65-100) H 12/24/16 07:01 POC Glucose 156 (70-105) H 12/24/16 11:38 Osmolality 351 Mosm/kg 09/16/16 11:47 Lactic Acid 4.50 mmol/L (0.7-2.0) H* 09/28/16 07:25 Calcium 8.2 mg/dL (8.4-10.2) L 12/24/16 07:01 Phosphorus 3.40 mg/dL (2.5-4.5) D 12/24/16 07:01 Magnesium 1.70 mg/dL (1.7-2.3) 12/24/16 07:01 Total Bilirubin 0.90 mg/dL (0.1-1.2) 12/18/16 05:00 Direct Bilirubin 0.3 mg/dL (0-0.2) H 10/10/16 05:00 Indirect Bilirubin 0.1 mg/dL 10/10/16 05:00 AST 34 units/L (5-40) 12/18/16 05:00 ALT 42 units/L (7-56) 12/18/16 05:00 Alkaline Phosphatase 257 units/L (35-129) H 12/18/16 05:00 Ammonia 27.0 umol/L (25-60) 09/07/16 08:37 Lactate Dehydrogenase 196 units/L (91-180) H 11/11/16 06:59 Total Creatine Kinase 121 units/L (30-135) 09/29/16 20:12 CK-MB (CK-2) < 1.0 ng/mL (0.0-4.0) 09/29/16 20:12 CK-MB (CK-2) Rel Index 0.8 (0-4) 09/29/16 20:12 Troponin T 0.204 ng/mL (0.00-0.029) H* 09/29/16 20:12 C-Reactive Protein 19.30 mg/dL (0.00-1.30) H 12/05/16 05:00 Total Protein 5.9 g/dL (6.3-8.2) L 12/18/16 05:00 Albumin 1.8 g/dL (3.9-5) L 12/18/16 05:00 Albumin/Globulin Ratio 0.4 % 12/18/16 05:00 Prealbumin 0.180 g/L (0.200-0.400) L 11/06/16 06:25 Triglycerides 137 mg/dL (2-149) 09/29/16 20:12 Cholesterol 31 mg/dL (50-199) L 09/29/16 20:12 LDL Cholesterol Direct 4 mg/dL (50-130) L 09/29/16 20:12 HDL Cholesterol 3 mg/dL (40-59) L 09/29/16 20:12 Cholesterol/HDL Ratio 10.33 % 09/29/16 20:12 Angiotensin Convert Enz See scanned report 09/08/16 11:48 Renin 0.99 ng/mL/h (0.25-5.82) 10/07/16 10:56 Aldosterone <1 ng/dL () 10/07/16 10:56 Aldosterone/Renin Dir see below 10/07/16 10:56 Serotonin Release Assay See scanned report 09/29/16 13:35 TSH 1.010 mlU/mL (0.270-4.200) 09/07/16 08:37 HCG, Qual Negative (Negative) 09/03/16 00:10 Urine Color Yellow (Yellow) 11/05/16 13:09 Urine Turbidity Clear (Clear) 11/05/16 13:09 Urine pH 9.0 (5.0-7.0) H 11/05/16 13:09 Ur Specific [place] 1.011 (1.003-1.030) 11/05/16 13:09 Urine Protein 100 mg/dl mg/dL (Negative) 11/05/16 13:09 Urine Glucose (UA) Neg mg/dL (Negative) 11/05/16 13:09 Urine Ketones Neg mg/dL (Negative) 11/05/16 13:09 Urine Blood Neg (Negative) 11/05/16 13:09 Urine Nitrite Neg (Negative) 11/05/16 13:09 Urine Bilirubin Neg (Negative) 11/05/16 13:09 Urine Urobilinogen < 2.0 mg/dL (<2.0) 11/05/16 13:09 Ur Leukocyte Esterase Neg (Negative) 11/05/16 13:09 Urine WBC (Auto) 4.0 /HPF (0.0-6.0) 11/05/16 13:09 Urine RBC (Auto) 1.0 /HPF (0.0-6.0) 11/05/16 13:09 U Epithel Cells (Auto) 1.0 /HPF (0-13.0) 10/07/16 18:30 Urine Bacteria (Auto) 4+ /HPF (Negative) 11/05/16 13:09 Urine WBC Clumps 2+ /HPF 09/07/16 02:47 Hyaline Casts 4 /LPF 09/07/16 02:47 Urine Mucus Few /HPF 10/07/16 18:30 Urine Yeast (Budding) 3+ /HPF 10/07/16 18:30 Urine Eosinophils None seen (None Seen) 09/07/16 16:00 Urine Total Volume 950 11/12/16 10:18 Urine Creatinine 19.7 mg/dL (0.1-20.0) 11/12/16 10:18 Height (in) 65.0 inches 11/12/16 10:18 Weight (lb) 181.0 lbs 11/12/16 10:18 Creatinine Clearance 5 11/12/16 10:18 Urine Sodium 36 mEq/L 09/16/16 19:19 Urine Total Protein 16 mg/dL (5-11.8) H 09/16/16 19:19 Fluid Total Protein < 3.0 (15.0-45.0) L 11/10/16 14:20 Fluid LDH 123 11/10/16 14:20 Vancomycin Trough 2.3 ug/mL (5.0-20.0) L 09/21/16 13:00 Random Vancomycin 16.5 ug/mL (0-40.0) 11/28/16 09:45 Urine Opiates Screen Presumptive negative 09/03/16 15:11 Urine Methadone Screen Presumptive positive 09/03/16 15:11 Ur Barbiturates Screen Presumptive positive 09/03/16 15:11 Ur Phencyclidine Scrn Presumptive negative 09/03/16 15:11 Ur Amphetamines Screen Presumptive negative 09/03/16 15:11 U Benzodiazepines Scrn Presumptive negative 09/03/16 15:11 Urine Cocaine Screen Presumptive negative 09/03/16 15:11 U Marijuana (THC) Screen Presumptive positive 09/03/16 15:11 Drugs of Abuse Note Disclamer 09/03/16 15:11 Rheumatoid Factor 24 IU/ml (0-13) H 09/08/16 11:48 SAHIL Screen Negative (Negative) 09/07/16 09:20 Proteinase 3 (PR3) Ab <1.0 AI (<1.0) 09/07/16 09:20 Myeloperoxidase Ab <1.0 AI (<1.0) 09/07/16 09:20 Sjogren's Antibody <1.0 AI (<1.0) 09/08/16 15:35 Scl-70 Scleroderma Ab <1.0 AI (<1.0) 09/08/16 15:35 Centromere B Antibody <1.0 AI (<1.0) 09/08/16 12:02 Heparin-induced Plt Ab Negative (Negative) 09/29/16 13:35 UF Heparin High Dose 11 % Release 09/29/16 13:35 SUDHIR UFH Low Dose 0.1 6 % Release 09/29/16 13:35 SUDHIR UFH Low Dose 0.5 8 % Release 09/29/16 13:35 Cardiolipid IgG Ab <14 GPL (<=14) 09/12/16 09:59 Cardiolipid IgA Ab <11 APL (<=11) 09/12/16 09:59 Cardiolipid IgM Ab <12 MPL (<=12) 09/12/16 09:59 Complement C3 148 mg/dL (90-180) 09/07/16 09:20 Complement C4 58 mg/dL (16-47) H 09/07/16 09:20 RPR Nonreactive (Nonreactive) 09/08/16 11:48 Hepatitis A IgM Ab Non-reactive (NonReactive) 09/24/16 14:40 Hep Bs Antigen Non-reactive (Negative) 09/24/16 14:40 Hep B Core IgM Ab Non-reactive (NonReactive) 09/24/16 14:40 Hepatitis C Antibody Non-reactive (NonReactive) 09/24/16 14:40 HIV 1&2 Antibody Rapid Non react (Non React) 09/08/16 11:48 HIV P24 Antigen Non react (Non React) 09/08/16 11:48 Miscellaneous Test Flexitest 1 H 11/05/16 13:25 Blood Type A POSITIVE 12/16/16 16:25 Antibody Screen Negative 12/16/16 16:25 DELORIS Antibody Screen Negative 11/24/16 11:20 Crossmatch See Detail 12/16/16 16:25
[2016-12-24] MEDS: HEPARIN IV PRN (18:24)
[2016-12-24] MEDS ORDERED: TPN ADULT IV SCH (20:00)
[2016-12-25] MEDS: HumuLIN R SUB-Q SCH ×4 (00:31→19:32)
[2016-12-25] MEDS: DUONEB *Not for PRN Use IH SCH ×4 (01:54→19:41)
[2016-12-25] MEDS: APRESOLINE PO SCH ×3 (05:22→22:20)
[2016-12-25] MEDS: LOPRESSOR PO SCH ×3 (05:23→19:35)
[2016-12-25 07:13] LABS: BUN/Creatinine Ratio 57; Blood Urea Nitrogen 51 mg/dL (7-17); Hemolysis Index 14
--- NOTE | 2016-12-25 08:26 | Progress Note ---
Assessment and Plan Acute Hypoxemic Respiratory Failure (now with exacerbation and back on MVS) Hypertension (unable to receive p.o. 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 - continue prn vasopressin if MAP falls < 60mmHg - prn CRP & lactate levels if clinically indicated (Follow WBC also) - keep on with daily PSV trials and / or T-piece as tolerated (repeat trial each shift if failed earlier shift)(trial after dialysis today) - continue TPN administration (continue TPN; NPO except for meds) - continue scopolamine for secretion control - continue to wean FiO2 for sats > 94% - continue bronchodilators and pulmonary toilet - VAP bundle addressed - continue prn IV metorolol - continue metoprolol and amlodipine (hold for hypotension) - continue HD/UF per nephrology (Teu/Thurs/Sat) - continue to follow electrolytes and correct as necessary - continue GI & VTE prophylaxis - Continue flu & pneumovax per protocol .....she remains critically ill on life sustaining interventions including MVS and at risk for further deterioration including ....33' CCT today without overlap ...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 and this has intermittently been conveyed to family; will consider ethics consultation Subjective Date of service: 12/25/16 Principal diagnosis: Acute resp failure on MVS; S/P Acute CVA; Acute Encephalopathy; JUANITA Interval history: Patient is seen today for: Acute resp failure on MVS; S/P Acute CVA; Acute Encephalopathy; JUANITA Seen and examined at bedside; 24hour events reviewed; nursing and respiratory care staff consulted; no adverse overnight events reported to me; remains on MVS ; remains on MVS; not tolerating weaning well; no emesis or overt aspiration; no new issues otherwise Objective Vital Signs - 12hr 12/24/16 12/24/16 12/24/16 21:30 21:46 22:00 Temperature Pulse Rate 95 H 97 H 102 H Pulse Rate [ Anterior Bilateral Throughout] Pulse Rate [ From Monitor] Pulse Rate [ Left Dorsalis Pedis] Respiratory 13 15 22 Rate Respiratory Rate [Anterior Bilateral Throughout] Blood Pressure 124/78 131/83 140/83 O2 Sat by Pulse 100 100 99 Oximetry O2 Sat by Pulse Oximetry [ Assessment] 12/24/16 12/24/16 12/24/16 22:16 22:30 22:46 Temperature Pulse Rate 102 H 104 H 105 H Pulse Rate [ Anterior Bilateral Throughout] Pulse Rate [ From Monitor] Pulse Rate [ Left Dorsalis Pedis] Respiratory 18 16 26 H Rate Respiratory Rate [Anterior Bilateral Throughout] Blood Pressure 116/86 137/80 140/83 O2 Sat by Pulse 100 100 95 Oximetry O2 Sat by Pulse Oximetry [ Assessment] 12/24/16 12/24/16 12/24/16 22:52 23:00 23:06 Temperature Pulse Rate 104 H 104 H 104 H Pulse Rate [ Anterior Bilateral Throughout] Pulse Rate [ From Monitor] Pulse Rate [ Left Dorsalis Pedis] Respiratory 22 Rate Respiratory Rate [Anterior Bilateral Throughout] Blood Pressure 141/87 151/89 151/89 O2 Sat by Pulse 98 Oximetry O2 Sat by Pulse Oximetry [ Assessment] 12/24/16 12/24/16 12/24/16 23:13 23:16 23:30 Temperature Pulse Rate 104 H 96 H 89 Pulse Rate [ Anterior Bilateral Throughout] Pulse Rate [ From Monitor] Pulse Rate [ Left Dorsalis Pedis] Respiratory 20 16 Rate Respiratory Rate [Anterior Bilateral Throughout] Blood Pressure 151/89 148/94 133/84 O2 Sat by Pulse 98 100 98 Oximetry O2 Sat by Pulse 97 Oximetry [ Assessment] 12/24/16 12/25/16 12/25/16 23:46 00:00 00:16 Temperature 97.9 F Pulse Rate 92 H 90 86 Pulse Rate [ Anterior Bilateral Throughout] Pulse Rate [ 90 From Monitor] Pulse Rate [ Left Dorsalis Pedis] Respiratory 23 23 26 H Rate Respiratory Rate [Anterior Bilateral Throughout] Blood Pressure 110/62 111/61 111/63 O2 Sat by Pulse 100 99 99 Oximetry O2 Sat by Pulse Oximetry [ Assessment] 12/25/16 12/25/16 12/25/16 00:30 00:46 01:00 EST Temperature Pulse Rate 85 83 75 Pulse Rate [ Anterior Bilateral Throughout] Pulse Rate [ From Monitor] Pulse Rate [ Left Dorsalis Pedis] Respiratory 20 22 15 Rate Respiratory Rate [Anterior Bilateral Throughout] Blood Pressure 107/61 101/55 96/52 O2 Sat by Pulse 99 98 100 Oximetry O2 Sat by Pulse Oximetry [ Assessment] 12/25/16 12/25/16 12/25/16 01:16 EST 01:30 EST 01:46 EST Temperature Pulse Rate 80 78 77 Pulse Rate [ Anterior Bilateral Throughout] Pulse Rate [ From Monitor] Pulse Rate [ Left Dorsalis Pedis] Respiratory 17 15 15 Rate Respiratory Rate [Anterior Bilateral Throughout] Blood Pressure 92/47 108/59 102/53 O2 Sat by Pulse 100 100 100 Oximetry O2 Sat by Pulse Oximetry [ Assessment] 12/25/16 12/25/16 12/25/16 01:54 EST 02:00 02:16 Temperature Pulse Rate 75 76 Pulse Rate [ 76 Anterior Bilateral Throughout] Pulse Rate [ From Monitor] Pulse Rate [ Left Dorsalis Pedis] Respiratory 12 14 Rate Respiratory 14 Rate [Anterior Bilateral Throughout] Blood Pressure 91/49 95/49 O2 Sat by Pulse 99 99 Oximetry O2 Sat by Pulse Oximetry [ Assessment] 12/25/16 12/25/16 12/25/16 02:30 02:46 03:00 Temperature Pulse Rate 76 76 76 Pulse Rate [ Anterior Bilateral Throughout] Pulse Rate [ From Monitor] Pulse Rate [ Left Dorsalis Pedis] Respiratory 14 15 15 Rate Respiratory Rate [Anterior Bilateral Throughout] Blood Pressure 89/47 99/49 101/53 O2 Sat by Pulse 99 99 99 Oximetry O2 Sat by Pulse Oximetry [ Assessment] 12/25/16 12/25/16 12/25/16 03:16 03:30 03:46 Temperature Pulse Rate 80 79 78 Pulse Rate [ Anterior Bilateral Throughout] Pulse Rate [ From Monitor] Pulse Rate [ Left Dorsalis Pedis] Respiratory 12 13 13 Rate Respiratory Rate [Anterior Bilateral Throughout] Blood Pressure 103/58 110/61 106/59 O2 Sat by Pulse 100 99 100 Oximetry O2 Sat by Pulse Oximetry [ Assessment] 12/25/16 12/25/16 12/25/16 04:00 04:04 04:16 Temperature 97.1 F L Pulse Rate 79 80 78 Pulse Rate [ Anterior Bilateral Throughout] Pulse Rate [ From Monitor] Pulse Rate [ 79 Left Dorsalis Pedis] Respiratory 13 15 Rate Respiratory Rate [Anterior Bilateral Throughout] Blood Pressure 110/66 110/66 105/58 O2 Sat by Pulse 100 99 99 Oximetry O2 Sat by Pulse Oximetry [ Assessment] 12/25/16 12/25/16 12/25/16 04:30 04:46 05:00 Temperature Pulse Rate 88 89 90 Pulse Rate [ Anterior Bilateral Throughout] Pulse Rate [ From Monitor] Pulse Rate [ Left Dorsalis Pedis] Respiratory 19 24 20 Rate Respiratory Rate [Anterior Bilateral Throughout] Blood Pressure 125/73 116/68 112/69 O2 Sat by Pulse 99 98 93 Oximetry O2 Sat by Pulse Oximetry [ Assessment] 12/25/16 12/25/16 12/25/16 05:15 05:22 05:31 Temperature Pulse Rate 93 H 92 H 91 H Pulse Rate [ Anterior Bilateral Throughout] Pulse Rate [ From Monitor] Pulse Rate [ Left Dorsalis Pedis] Respiratory 15 22 Rate Respiratory Rate [Anterior Bilateral Throughout] Blood Pressure 115/66 114/63 120/70 O2 Sat by Pulse 99 99 Oximetry O2 Sat by Pulse Oximetry [ Assessment] 12/25/16 12/25/16 12/25/16 05:45 06:01 06:15 Temperature Pulse Rate 92 H 92 H 96 H Pulse Rate [ Anterior Bilateral Throughout] Pulse Rate [ From Monitor] Pulse Rate [ Left Dorsalis Pedis] Respiratory 22 20 20 Rate Respiratory Rate [Anterior Bilateral Throughout] Blood Pressure 130/70 111/60 114/65 O2 Sat by Pulse 99 99 100 Oximetry O2 Sat by Pulse Oximetry [ Assessment] 12/25/16 12/25/16 12/25/16 06:31 06:45 07:14 Temperature Pulse Rate 94 H 96 H 97 H Pulse Rate [ Anterior Bilateral Throughout] Pulse Rate [ From Monitor] Pulse Rate [ Left Dorsalis Pedis] Respiratory 14 19 Rate Respiratory Rate [Anterior Bilateral Throughout] Blood Pressure 116/69 116/68 125/72 O2 Sat by Pulse 99 99 99 Oximetry O2 Sat by Pulse Oximetry [ Assessment] 12/25/16 12/25/16 12/25/16 07:17 07:23 07:30 Temperature Pulse Rate Pulse Rate [ 101 H 100 H Anterior Bilateral Throughout] Pulse Rate [ From Monitor] Pulse Rate [ Left Dorsalis Pedis] Respiratory Rate Respiratory 23 12 Rate [Anterior Bilateral Throughout] Blood Pressure O2 Sat by Pulse Oximetry O2 Sat by Pulse 99 Oximetry [ Assessment] 12/25/16 12/25/16 07:35 07:51 Temperature 98.5 F Pulse Rate Pulse Rate [ Anterior Bilateral Throughout] Pulse Rate [ From Monitor] Pulse Rate [ Left Dorsalis Pedis] Respiratory Rate Respiratory Rate [Anterior Bilateral Throughout] Blood Pressure O2 Sat by Pulse 99 Oximetry O2 Sat by Pulse Oximetry [ Assessment] Constitutional: appears uncomfortable, other (not tracking) Eyes: non-icteric, other (tracheostomy tube in midline of neck) ENT: oropharynx moist, oropharyngeal exudate pre Neck: supple, no lymphadenopathy, no JVD, other (no thyromegaly) Effort: mildly labored Ascultation: Bilateral: rhonchi (and referred upper airway sounds) Percussion: Bilateral: not dull Cardiovascular: regular rate and rhythm, other (no rubs / murmurs) Gastrointestinal: hypoactive bowel sounds, soft, non-tender, non-distended, other (RLQ & LUQ stomas with colostomy bags) Integumentary: decubitus ulcer (sacral), other (no rash; no cellulitis; poor turgor) Extremities: no cyanosis, pulses normal, no ischemia or petechiae, edema (1+ bilaterally) Neurologic: pupils equal and round, unable to assess, other (encephalopathic) Psychiatric: other (unable to assess) CBC and BMP: 12/28/16 04:00 12/28/16 04:00 ABG, PT/INR, D-dimer: ABG POC ABG pH 7.503 (7.35-7.45) H 12/19/16 09:36 ABG pH 7.450 pH Units (7.350-7.450) 12/05/16 Unknown POC ABG pCO2 30.1 (35-45) L 12/19/16 09:36 ABG pCO2 29.6 mm Hg 12/05/16 Unknown POC ABG pO2 85 (80-105) 12/19/16 09:36 ABG pO2 75.2 mm Hg (80.0-90.0) L 12/05/16 Unknown POC ABG HCO3 23.6 12/19/16 09:36 POC ABG Total CO2 25 12/19/16 09:36 POC ABG O2 Sat 97 12/19/16 09:36 ABG O2 Saturation 96.8 % (95.0-99.0) 12/05/16 Unknown PT/INR, D-dimer PT 16.8 Sec. (12.2-14.9) H 11/17/16 03:20 INR 1.37 (0.87-1.13) H 11/17/16 03:20 Abnormal lab findings: Abnormal Labs 09/03/16 09/03/16 09/03/16 12:12 15:07 16:20 WBC RBC Hgb Hct MCV MCH MCHC RDW Plt Count Lymph % (Auto) [place] % (Auto) Lymph # [place] # Baso # Seg Neutrophils % Seg Neuts % (Manual) Lymphocytes % (Manual) Monocytes % (Manual) Eosinophils % (Manual) Basophils % (Manual) Nucleated RBC % Seg Neutrophils # Seg Neutrophils # Man Lymphocytes # (Manual) Monocytes # (Manual) Eosinophils # (Manual) Basophils # (Manual) PT INR Fibrinogen dRVVT Confirm Interp Factor V Activity POC ABG pH 7.452 H POC ABG pCO2 POC ABG pO2 ABG pO2 ABG HCO3 ABG Base Excess ABG Hemoglobin Oxyhemoglobin Sodium Potassium Chloride Carbon Dioxide BUN Creatinine Glucose POC Glucose 178 H Lactic Acid Calcium Phosphorus 2.20 L Magnesium 1.60 L Direct Bilirubin AST ALT Alkaline Phosphatase Lactate Dehydrogenase Troponin T C-Reactive Protein Total Protein Albumin Prealbumin Triglycerides Cholesterol LDL Cholesterol Direct HDL Cholesterol Urine pH Urine WBC (Auto) Urine Creatinine Urine Total Protein Fluid Total Protein Vancomycin Trough Rheumatoid Factor Complement C4 Miscellaneous Test Crossmatch 09/03/16 09/03/16 09/03/16 17:57 17:58 23:50 WBC RBC Hgb Hct MCV MCH MCHC RDW Plt Count Lymph % (Auto) [place] % (Auto) Lymph # [place] # Baso # Seg Neutrophils % Seg Neuts % (Manual) Lymphocytes % (Manual) Monocytes % (Manual) Eosinophils % (Manual) Basophils % (Manual) Nucleated RBC % Seg Neutrophils # Seg Neutrophils # Man Lymphocytes # (Manual) Monocytes # (Manual) Eosinophils # (Manual) Basophils # (Manual) PT INR Fibrinogen dRVVT Confirm Interp Factor V Activity POC ABG pH POC ABG pCO2 POC ABG pO2 ABG pO2 ABG HCO3 ABG Base Excess ABG Hemoglobin Oxyhemoglobin Sodium Potassium Chloride Carbon Dioxide BUN Creatinine Glucose POC Glucose 162 H 145 H Lactic Acid Calcium Phosphorus 2.30 L Magnesium Direct Bilirubin AST ALT Alkaline Phosphatase Lactate Dehydrogenase Troponin T C-Reactive Protein Total Protein Albumin Prealbumin Triglycerides Cholesterol LDL Cholesterol Direct HDL Cholesterol Urine pH Urine WBC (Auto) Urine Creatinine Urine Total Protein Fluid Total Protein Vancomycin Trough Rheumatoid Factor Complement C4 Miscellaneous Test Crossmatch 09/04/16 09/04/16 09/04/16 03:31 03:31 05:42 WBC RBC Hgb 9.7 L D Hct MCV 72 L MCH 23 L MCHC RDW 17.5 H Plt Count Lymph % (Auto) 11.1 L [place] % (Auto) Lymph # [place] # Baso # Seg Neutrophils % 84.3 H Seg Neuts % (Manual) Lymphocytes % (Manual) Monocytes % (Manual) Eosinophils % (Manual) Basophils % (Manual) Nucleated RBC % Seg Neutrophils # 8.9 H Seg Neutrophils # Man Lymphocytes # (Manual) Monocytes # (Manual) Eosinophils # (Manual) Basophils # (Manual) PT INR Fibrinogen dRVVT Confirm Interp Factor V Activity POC ABG pH POC ABG pCO2 POC ABG pO2 ABG pO2 ABG HCO3 ABG Base Excess ABG Hemoglobin Oxyhemoglobin Sodium 135 L Potassium 2.9 L* Chloride 97.2 L Carbon Dioxide 19 L BUN Creatinine 1.7 H Glucose 170 H POC Glucose 152 H Lactic Acid Calcium Phosphorus Magnesium Direct Bilirubin AST ALT Alkaline Phosphatase Lactate Dehydrogenase Troponin T C-Reactive Protein Total Protein Albumin Prealbumin Triglycerides 160 H Cholesterol LDL Cholesterol Direct HDL Cholesterol 31 L Urine pH Urine WBC (Auto) Urine Creatinine Urine Total Protein Fluid Total Protein Vancomycin Trough Rheumatoid Factor Complement C4 Miscellaneous Test Crossmatch 09/04/16 09/04/16 09/04/16 11:34 17:46 23:29 WBC RBC Hgb Hct MCV MCH MCHC RDW Plt Count Lymph % (Auto) [place] % (Auto) Lymph # [place] # Baso # Seg Neutrophils % Seg Neuts % (Manual) Lymphocytes % (Manual) Monocytes % (Manual) Eosinophils % (Manual) Basophils % (Manual) Nucleated RBC % Seg Neutrophils # Seg Neutrophils # Man Lymphocytes # (Manual) Monocytes # (Manual) Eosinophils # (Manual) Basophils # (Manual) PT INR Fibrinogen dRVVT Confirm Interp Factor V Activity POC ABG pH POC ABG pCO2 POC ABG pO2 ABG pO2 ABG HCO3 ABG Base Excess ABG Hemoglobin Oxyhemoglobin Sodium Potassium Chloride Carbon Dioxide BUN Creatinine Glucose POC Glucose 165 H 210 H 139 H Lactic Acid Calcium Phosphorus Magnesium Direct Bilirubin AST ALT Alkaline Phosphatase Lactate Dehydrogenase Troponin T C-Reactive Protein Total Protein Albumin Prealbumin Triglycerides Cholesterol LDL Cholesterol Direct HDL Cholesterol Urine pH Urine WBC (Auto) Urine Creatinine Urine Total Protein Fluid Total Protein Vancomycin Trough Rheumatoid Factor Complement C4 Miscellaneous Test Crossmatch 09/05/16 09/05/16 09/05/16 04:05 04:05 05:38 WBC RBC Hgb Hct MCV 76 L D MCH 23 L MCHC RDW 17.8 H Plt Count Lymph % (Auto) [place] % (Auto) Lymph # [place] # Baso # Seg Neutrophils % Seg Neuts % (Manual) Lymphocytes % (Manual) Monocytes % (Manual) Eosinophils % (Manual) Basophils % (Manual) Nucleated RBC % Seg Neutrophils # Seg Neutrophils # Man Lymphocytes # (Manual) Monocytes # (Manual) Eosinophils # (Manual) Basophils # (Manual) PT INR Fibrinogen dRVVT Confirm Interp Factor V Activity POC ABG pH POC ABG pCO2 POC ABG pO2 ABG pO2 ABG HCO3 ABG Base Excess ABG Hemoglobin Oxyhemoglobin Sodium 134 L Potassium Chloride Carbon Dioxide 18 L BUN Creatinine 1.8 H Glucose 192 H POC Glucose 175 H Lactic Acid Calcium Phosphorus Magnesium Direct Bilirubin AST ALT Alkaline Phosphatase Lactate Dehydrogenase Troponin T C-Reactive Protein Total Protein Albumin Prealbumin Triglycerides Cholesterol LDL Cholesterol Direct HDL Cholesterol Urine pH Urine WBC (Auto) Urine Creatinine Urine Total Protein Fluid Total Protein Vancomycin Trough Rheumatoid Factor Complement C4 Miscellaneous Test Crossmatch 09/05/16 09/05/16 09/05/16 11:38 17:48 23:22 WBC RBC Hgb Hct MCV MCH MCHC RDW Plt Count Lymph % (Auto) [place] % (Auto) Lymph # [place] # Baso # Seg Neutrophils % Seg Neuts % (Manual) Lymphocytes % (Manual) Monocytes % (Manual) Eosinophils % (Manual) Basophils % (Manual) Nucleated RBC % Seg Neutrophils # Seg Neutrophils # Man Lymphocytes # (Manual) Monocytes # (Manual) Eosinophils # (Manual) Basophils # (Manual) PT INR Fibrinogen dRVVT Confirm Interp Factor V Activity POC ABG pH POC ABG pCO2 POC ABG pO2 ABG pO2 ABG HCO3 ABG Base Excess ABG Hemoglobin Oxyhemoglobin Sodium Potassium Chloride Carbon Dioxide BUN Creatinine Glucose POC Glucose 164 H 186 H 195 H Lactic Acid Calcium Phosphorus Magnesium Direct Bilirubin AST ALT Alkaline Phosphatase Lactate Dehydrogenase Troponin T C-Reactive Protein Total Protein Albumin Prealbumin Triglycerides Cholesterol LDL Cholesterol Direct HDL Cholesterol Urine pH Urine WBC (Auto) Urine Creatinine Urine Total Protein Fluid Total Protein Vancomycin Trough Rheumatoid Factor Complement C4 Miscellaneous Test Crossmatch 09/06/16 09/06/16 09/06/16 04:12 05:59 07:32 WBC RBC Hgb Hct MCV MCH MCHC RDW Plt Count Lymph % (Auto) [place] % (Auto) Lymph # [place] # Baso # Seg Neutrophils % Seg Neuts % (Manual) Lymphocytes % (Manual) Monocytes % (Manual) Eosinophils % (Manual) Basophils % (Manual) Nucleated RBC % Seg Neutrophils # Seg Neutrophils # Man Lymphocytes # (Manual) Monocytes # (Manual) Eosinophils # (Manual) Basophils # (Manual) PT INR Fibrinogen dRVVT Confirm Interp Factor V Activity POC ABG pH 7.514 H POC ABG pCO2 29.1 L POC ABG pO2 72 L ABG pO2 ABG HCO3 ABG Base Excess ABG Hemoglobin Oxyhemoglobin Sodium 133 L Potassium 3.4 L Chloride 94.9 L Carbon Dioxide 19 L BUN 30 H Creatinine 2.1 H Glucose 139 H POC Glucose 146 H Lactic Acid Calcium Phosphorus Magnesium Direct Bilirubin AST ALT Alkaline Phosphatase Lactate Dehydrogenase Troponin T C-Reactive Protein Total Protein Albumin Prealbumin Triglycerides Cholesterol LDL Cholesterol Direct HDL Cholesterol Urine pH Urine WBC (Auto) Urine Creatinine Urine Total Protein Fluid Total Protein Vancomycin Trough Rheumatoid Factor Complement C4 Miscellaneous Test Crossmatch 09/06/16 09/06/16 09/06/16 11:57 17:58 19:02 WBC RBC Hgb Hct MCV MCH MCHC RDW Plt Count Lymph % (Auto) [place] % (Auto) Lymph # [place] # Baso # Seg Neutrophils % Seg Neuts % (Manual) Lymphocytes % (Manual) Monocytes % (Manual) Eosinophils % (Manual) Basophils % (Manual) Nucleated RBC % Seg Neutrophils # Seg Neutrophils # Man Lymphocytes # (Manual) Monocytes # (Manual) Eosinophils # (Manual) Basophils # (Manual) PT INR Fibrinogen dRVVT Confirm Interp Factor V Activity POC ABG pH 7.465 H POC ABG pCO2 32.0 L POC ABG pO2 ABG pO2 ABG HCO3 ABG Base Excess ABG Hemoglobin Oxyhemoglobin Sodium Potassium Chloride Carbon Dioxide BUN Creatinine Glucose POC Glucose 165 H 160 H Lactic Acid Calcium Phosphorus Magnesium Direct Bilirubin AST ALT Alkaline Phosphatase Lactate Dehydrogenase Troponin T C-Reactive Protein Total Protein Albumin Prealbumin Triglycerides Cholesterol LDL Cholesterol Direct HDL Cholesterol Urine pH Urine WBC (Auto) Urine Creatinine Urine Total Protein Fluid Total Protein Vancomycin Trough Rheumatoid Factor Complement C4 Miscellaneous Test Crossmatch 09/06/16 09/07/16 09/07/16 23:45 02:47 02:47 WBC RBC Hgb Hct MCV MCH MCHC RDW Plt Count Lymph % (Auto) [place] % (Auto) Lymph # [place] # Baso # Seg Neutrophils % Seg Neuts % (Manual) Lymphocytes % (Manual) Monocytes % (Manual) Eosinophils % (Manual) Basophils % (Manual) Nucleated RBC % Seg Neutrophils # Seg Neutrophils # Man Lymphocytes # (Manual) Monocytes # (Manual) Eosinophils # (Manual) Basophils # (Manual) PT INR Fibrinogen dRVVT Confirm Interp Factor V Activity POC ABG pH POC ABG pCO2 POC ABG pO2 ABG pO2 ABG HCO3 ABG Base Excess ABG Hemoglobin Oxyhemoglobin Sodium Potassium Chloride Carbon Dioxide BUN Creatinine Glucose POC Glucose 204 H Lactic Acid Calcium Phosphorus Magnesium Direct Bilirubin AST ALT Alkaline Phosphatase Lactate Dehydrogenase Troponin T C-Reactive Protein Total Protein Albumin Prealbumin Triglycerides Cholesterol LDL Cholesterol Direct HDL Cholesterol Urine pH Urine WBC (Auto) 68.0 H Urine Creatinine 106.1 H Urine Total Protein Fluid Total Protein Vancomycin Trough Rheumatoid Factor Complement C4 Miscellaneous Test Crossmatch 09/07/16 09/07/16 09/07/16 04:50 06:19 06:39 WBC RBC Hgb Hct MCV MCH MCHC RDW Plt Count Lymph % (Auto) [place] % (Auto) Lymph # [place] # Baso # Seg Neutrophils % Seg Neuts % (Manual) Lymphocytes % (Manual) Monocytes % (Manual) Eosinophils % (Manual) Basophils % (Manual) Nucleated RBC % Seg Neutrophils # Seg Neutrophils # Man Lymphocytes # (Manual) Monocytes # (Manual) Eosinophils # (Manual) Basophils # (Manual) PT INR Fibrinogen dRVVT Confirm Interp Factor V Activity POC ABG pH 7.457 H POC ABG pCO2 32.1 L POC ABG pO2 76 L ABG pO2 ABG HCO3 ABG Base Excess ABG Hemoglobin Oxyhemoglobin Sodium 132 L Potassium Chloride 94.7 L Carbon Dioxide BUN 53 H Creatinine 2.9 H Glucose 151 H POC Glucose 149 H Lactic Acid Calcium Phosphorus Magnesium Direct Bilirubin AST ALT Alkaline Phosphatase Lactate Dehydrogenase Troponin T C-Reactive Protein Total Protein Albumin Prealbumin Triglycerides Cholesterol LDL Cholesterol Direct HDL Cholesterol Urine pH Urine WBC (Auto) Urine Creatinine Urine Total Protein Fluid Total Protein Vancomycin Trough Rheumatoid Factor Complement C4 Miscellaneous Test Crossmatch 09/07/16 09/07/16 09/07/16 09:20 11:43 11:43 WBC 19.4 H RBC Hgb 8.3 L Hct 26.4 L D MCV 72 L D MCH 22 L MCHC RDW 17.9 H Plt Count Lymph % (Auto) 8.5 L [place] % (Auto) Lymph # [place] # 1.0 H Baso # Seg Neutrophils % 85.8 H Seg Neuts % (Manual) Lymphocytes % (Manual) Monocytes % (Manual) Eosinophils % (Manual) Basophils % (Manual) Nucleated RBC % Seg Neutrophils # 16.6 H Seg Neutrophils # Man Lymphocytes # (Manual) Monocytes # (Manual) Eosinophils # (Manual) Basophils # (Manual) PT INR Fibrinogen dRVVT Confirm Interp Factor V Activity POC ABG pH POC ABG pCO2 POC ABG pO2 ABG pO2 ABG HCO3 ABG Base Excess ABG Hemoglobin Oxyhemoglobin Sodium 134 L Potassium Chloride 97.2 L Carbon Dioxide 20 L BUN 58 H Creatinine 2.9 H Glucose 147 H POC Glucose Lactic Acid Calcium Phosphorus 2.40 L Magnesium 2.40 H Direct Bilirubin AST ALT Alkaline Phosphatase Lactate Dehydrogenase Troponin T C-Reactive Protein Total Protein 5.8 L Albumin 2.2 L Prealbumin Triglycerides Cholesterol LDL Cholesterol Direct HDL Cholesterol Urine pH Urine WBC (Auto) Urine Creatinine Urine Total Protein Fluid Total Protein Vancomycin Trough Rheumatoid Factor Complement C4 58 H Miscellaneous Test Crossmatch 09/07/16 09/07/16 09/07/16 11:50 16:00 17:31 WBC RBC Hgb Hct MCV MCH MCHC RDW Plt Count Lymph % (Auto) [place] % (Auto) Lymph # [place] # Baso # Seg Neutrophils % Seg Neuts % (Manual) Lymphocytes % (Manual) Monocytes % (Manual) Eosinophils % (Manual) Basophils % (Manual) Nucleated RBC % Seg Neutrophils # Seg Neutrophils # Man Lymphocytes # (Manual) Monocytes # (Manual) Eosinophils # (Manual) Basophils # (Manual) PT INR Fibrinogen dRVVT Confirm Interp Factor V Activity POC ABG pH POC ABG pCO2 POC ABG pO2 158 H ABG pO2 ABG HCO3 ABG Base Excess ABG Hemoglobin Oxyhemoglobin Sodium Potassium Chloride Carbon Dioxide BUN Creatinine Glucose POC Glucose 175 H Lactic Acid Calcium Phosphorus Magnesium Direct Bilirubin AST ALT Alkaline Phosphatase Lactate Dehydrogenase Troponin T C-Reactive Protein Total Protein Albumin Prealbumin Triglycerides Cholesterol LDL Cholesterol Direct HDL Cholesterol Urine pH Urine WBC (Auto) Urine Creatinine 66.3 H Urine Total Protein Fluid Total Protein Vancomycin Trough Rheumatoid Factor Complement C4 Miscellaneous Test Crossmatch 09/07/16 09/08/16 09/08/16 23:50 05:46 06:18 WBC 17.8 H RBC 3.58 L Hgb 8.1 L Hct 25.5 L MCV 71 L MCH 23 L MCHC RDW 18.4 H Plt Count Lymph % (Auto) [place] % (Auto) Lymph # [place] # Baso # Seg Neutrophils % Seg Neuts % (Manual) 92.0 H Lymphocytes % (Manual) 6.0 L Monocytes % (Manual) Eosinophils % (Manual) Basophils % (Manual) Nucleated RBC % Seg Neutrophils # Seg Neutrophils # Man 16.4 H Lymphocytes # (Manual) 1.1 L Monocytes # (Manual) Eosinophils # (Manual) Basophils # (Manual) PT INR Fibrinogen dRVVT Confirm Interp Factor V Activity POC ABG pH POC ABG pCO2 34.3 L POC ABG pO2 71 L ABG pO2 ABG HCO3 ABG Base Excess ABG Hemoglobin Oxyhemoglobin Sodium Potassium Chloride Carbon Dioxide BUN Creatinine Glucose POC Glucose 216 H Lactic Acid Calcium Phosphorus Magnesium Direct Bilirubin AST ALT Alkaline Phosphatase Lactate Dehydrogenase Troponin T C-Reactive Protein Total Protein Albumin Prealbumin Triglycerides Cholesterol LDL Cholesterol Direct HDL Cholesterol Urine pH Urine WBC (Auto) Urine Creatinine Urine Total Protein Fluid Total Protein Vancomycin Trough Rheumatoid Factor Complement C4 Miscellaneous Test Crossmatch 09/08/16 09/08/16 09/08/16 06:18 06:51 10:55 WBC RBC Hgb Hct MCV MCH MCHC RDW Plt Count Lymph % (Auto) [place] % (Auto) Lymph # [place] # Baso # Seg Neutrophils % Seg Neuts % (Manual) Lymphocytes % (Manual) Monocytes % (Manual) Eosinophils % (Manual) Basophils % (Manual) Nucleated RBC % Seg Neutrophils # Seg Neutrophils # Man Lymphocytes # (Manual) Monocytes # (Manual) Eosinophils # (Manual) Basophils # (Manual) PT INR Fibrinogen dRVVT Confirm Interp Factor V Activity POC ABG pH POC ABG pCO2 POC ABG pO2 ABG pO2 ABG HCO3 ABG Base Excess ABG Hemoglobin Oxyhemoglobin Sodium 133 L Potassium Chloride 96.9 L Carbon Dioxide 20 L BUN 63 H Creatinine 2.7 H Glucose 195 H POC Glucose 204 H 169 H Lactic Acid Calcium Phosphorus Magnesium Direct Bilirubin AST ALT Alkaline Phosphatase Lactate Dehydrogenase Troponin T C-Reactive Protein Total Protein Albumin Prealbumin Triglycerides Cholesterol LDL Cholesterol Direct HDL Cholesterol Urine pH Urine WBC (Auto) Urine Creatinine Urine Total Protein Fluid Total Protein Vancomycin Trough Rheumatoid Factor Complement C4 Miscellaneous Test Crossmatch 09/08/16 09/08/16 09/08/16 11:48 11:48 11:48 WBC RBC Hgb Hct MCV MCH MCHC RDW Plt Count Lymph % (Auto) [place] % (Auto) Lymph # [place] # Baso # Seg Neutrophils % Seg Neuts % (Manual) Lymphocytes % (Manual) Monocytes % (Manual) Eosinophils % (Manual) Basophils % (Manual) Nucleated RBC % Seg Neutrophils # Seg Neutrophils # Man Lymphocytes # (Manual) Monocytes # (Manual) Eosinophils # (Manual) Basophils # (Manual) PT INR Fibrinogen 750 H dRVVT Confirm Interp Factor V Activity POC ABG pH POC ABG pCO2 POC ABG pO2 ABG pO2 ABG HCO3 ABG Base Excess ABG Hemoglobin Oxyhemoglobin Sodium Potassium Chloride Carbon Dioxide BUN Creatinine Glucose POC Glucose Lactic Acid Calcium Phosphorus Magnesium Direct Bilirubin AST ALT Alkaline Phosphatase Lactate Dehydrogenase Troponin T C-Reactive Protein 15.70 H Total Protein Albumin Prealbumin Triglycerides Cholesterol LDL Cholesterol Direct HDL Cholesterol Urine pH Urine WBC (Auto) Urine Creatinine Urine Total Protein Fluid Total Protein Vancomycin Trough Rheumatoid Factor 24 H Complement C4 Miscellaneous Test Crossmatch 09/08/16 09/08/16 09/09/16 15:35 18:25 00:24 WBC RBC Hgb Hct MCV MCH MCHC RDW Plt Count Lymph % (Auto) [place] % (Auto) Lymph # [place] # Baso # Seg Neutrophils % Seg Neuts % (Manual) Lymphocytes % (Manual) Monocytes % (Manual) Eosinophils % (Manual) Basophils % (Manual) Nucleated RBC % Seg Neutrophils # Seg Neutrophils # Man Lymphocytes # (Manual) Monocytes # (Manual) Eosinophils # (Manual) Basophils # (Manual) PT INR Fibrinogen dRVVT Confirm Interp Factor V Activity 182 H POC ABG pH POC ABG pCO2 POC ABG pO2 ABG pO2 ABG HCO3 ABG Base Excess ABG Hemoglobin Oxyhemoglobin Sodium Potassium Chloride Carbon Dioxide BUN Creatinine Glucose POC Glucose 184 H 216 H Lactic Acid Calcium Phosphorus Magnesium Direct Bilirubin AST ALT Alkaline Phosphatase Lactate Dehydrogenase Troponin T C-Reactive Protein Total Protein Albumin Prealbumin Triglycerides Cholesterol LDL Cholesterol Direct HDL Cholesterol Urine pH Urine WBC (Auto) Urine Creatinine Urine Total Protein Fluid Total Protein Vancomycin Trough Rheumatoid Factor Complement C4 Miscellaneous Test Crossmatch 09/09/16 09/09/16 09/09/16 03:00 03:00 04:04 WBC 27.9 H RBC Hgb 8.7 L Hct 28.1 L MCV 72 L MCH 22 L MCHC RDW 18.4 H Plt Count 485 H Lymph % (Auto) [place] % (Auto) Lymph # [place] # Baso # Seg Neutrophils % Seg Neuts % (Manual) 77.0 H Lymphocytes % (Manual) 9.0 L Monocytes % (Manual) Eosinophils % (Manual) Basophils % (Manual) Nucleated RBC % Seg Neutrophils # Seg Neutrophils # Man 21.5 H Lymphocytes # (Manual) Monocytes # (Manual) 2.0 H Eosinophils # (Manual) Basophils # (Manual) PT INR Fibrinogen dRVVT Confirm Interp Factor V Activity POC ABG pH POC ABG pCO2 POC ABG pO2 121 H ABG pO2 ABG HCO3 ABG Base Excess ABG Hemoglobin Oxyhemoglobin Sodium 135 L Potassium Chloride 96.3 L Carbon Dioxide 21 L BUN 83 H Creatinine 3.0 H Glucose 135 H POC Glucose Lactic Acid Calcium Phosphorus Magnesium Direct Bilirubin AST ALT Alkaline Phosphatase Lactate Dehydrogenase Troponin T C-Reactive Protein Total Protein Albumin Prealbumin Triglycerides Cholesterol LDL Cholesterol Direct HDL Cholesterol Urine pH Urine WBC (Auto) Urine Creatinine Urine Total Protein Fluid Total Protein Vancomycin Trough Rheumatoid Factor Complement C4 Miscellaneous Test Crossmatch 09/09/16 09/09/16 09/09/16 05:41 11:55 14:13 WBC RBC Hgb Hct MCV MCH MCHC RDW Plt Count Lymph % (Auto) [place] % (Auto) Lymph # [place] # Baso # Seg Neutrophils % Seg Neuts % (Manual) Lymphocytes % (Manual) Monocytes % (Manual) Eosinophils % (Manual) Basophils % (Manual) Nucleated RBC % Seg Neutrophils # Seg Neutrophils # Man Lymphocytes # (Manual) Monocytes # (Manual) Eosinophils # (Manual) Basophils # (Manual) PT INR Fibrinogen dRVVT Confirm Interp Factor V Activity POC ABG pH POC ABG pCO2 POC ABG pO2 ABG pO2 ABG HCO3 ABG Base Excess ABG Hemoglobin Oxyhemoglobin Sodium Potassium Chloride Carbon Dioxide BUN Creatinine Glucose POC Glucose 155 H 186 H Lactic Acid Calcium Phosphorus Magnesium Direct Bilirubin AST ALT Alkaline Phosphatase Lactate Dehydrogenase Troponin T C-Reactive Protein Total Protein Albumin Prealbumin Triglycerides Cholesterol LDL Cholesterol Direct HDL Cholesterol Urine pH Urine WBC (Auto) 25.0 H Urine Creatinine Urine Total Protein Fluid Total Protein Vancomycin Trough Rheumatoid Factor Complement C4 Miscellaneous Test Crossmatch 09/09/16 09/09/16 09/10/16 17:33 23:13 05:09 WBC RBC Hgb Hct MCV MCH MCHC RDW Plt Count Lymph % (Auto) [place] % (Auto) Lymph # [place] # Baso # Seg Neutrophils % Seg Neuts % (Manual) Lymphocytes % (Manual) Monocytes % (Manual) Eosinophils % (Manual) Basophils % (Manual) Nucleated RBC % Seg Neutrophils # Seg Neutrophils # Man Lymphocytes # (Manual) Monocytes # (Manual) Eosinophils # (Manual) Basophils # (Manual) PT INR Fibrinogen dRVVT Confirm Interp Factor V Activity POC ABG pH POC ABG pCO2 POC ABG pO2 74 L ABG pO2 ABG HCO3 ABG Base Excess ABG Hemoglobin Oxyhemoglobin Sodium Potassium Chloride Carbon Dioxide BUN Creatinine Glucose POC Glucose 211 H 215 H Lactic Acid Calcium Phosphorus Magnesium Direct Bilirubin AST ALT Alkaline Phosphatase Lactate Dehydrogenase Troponin T C-Reactive Protein Total Protein Albumin Prealbumin Triglycerides Cholesterol LDL Cholesterol Direct HDL Cholesterol Urine pH Urine WBC (Auto) Urine Creatinine Urine Total Protein Fluid Total Protein Vancomycin Trough Rheumatoid Factor Complement C4 Miscellaneous Test Crossmatch 09/10/16 09/10/16 09/10/16 05:17 05:17 11:31 WBC 15.8 H RBC 3.25 L Hgb 7.3 L Hct 22.9 L MCV 71 L MCH 23 L MCHC RDW 18.4 H Plt Count Lymph % (Auto) [place] % (Auto) Lymph # [place] # Baso # Seg Neutrophils % Seg Neuts % (Manual) 91.0 H Lymphocytes % (Manual) 4.0 L Monocytes % (Manual) Eosinophils % (Manual) Basophils % (Manual) Nucleated RBC % Seg Neutrophils # Seg Neutrophils # Man 14.4 H Lymphocytes # (Manual) 0.6 L Monocytes # (Manual) Eosinophils # (Manual) Basophils # (Manual) PT INR Fibrinogen dRVVT Confirm Interp Factor V Activity POC ABG pH POC ABG pCO2 POC ABG pO2 ABG pO2 ABG HCO3 ABG Base Excess ABG Hemoglobin Oxyhemoglobin Sodium Potassium Chloride Carbon Dioxide 21 L BUN 93 H Creatinine 2.9 H Glucose 146 H POC Glucose 188 H Lactic Acid Calcium 8.1 L Phosphorus Magnesium Direct Bilirubin AST ALT Alkaline Phosphatase Lactate Dehydrogenase Troponin T C-Reactive Protein Total Protein Albumin Prealbumin Triglycerides Cholesterol LDL Cholesterol Direct HDL Cholesterol Urine pH Urine WBC (Auto) Urine Creatinine Urine Total Protein Fluid Total Protein Vancomycin Trough Rheumatoid Factor Complement C4 Miscellaneous Test Crossmatch 09/10/16 09/10/16 09/10/16 13:17 17:20 23:32 WBC RBC Hgb Hct MCV MCH MCHC RDW Plt Count Lymph % (Auto) [place] % (Auto) Lymph # [place] # Baso # Seg Neutrophils % Seg Neuts % (Manual) Lymphocytes % (Manual) Monocytes % (Manual) Eosinophils % (Manual) Basophils % (Manual) Nucleated RBC % Seg Neutrophils # Seg Neutrophils # Man Lymphocytes # (Manual) Monocytes # (Manual) Eosinophils # (Manual) Basophils # (Manual) PT INR Fibrinogen dRVVT Confirm Interp Factor V Activity POC ABG pH POC ABG pCO2 POC ABG pO2 ABG pO2 ABG HCO3 ABG Base Excess ABG Hemoglobin Oxyhemoglobin Sodium Potassium Chloride Carbon Dioxide BUN Creatinine Glucose POC Glucose 199 H 186 H Lactic Acid Calcium Phosphorus Magnesium Direct Bilirubin AST ALT Alkaline Phosphatase Lactate Dehydrogenase Troponin T C-Reactive Protein Total Protein Albumin Prealbumin Triglycerides Cholesterol LDL Cholesterol Direct HDL Cholesterol Urine pH Urine WBC (Auto) Urine Creatinine Urine Total Protein Fluid Total Protein Vancomycin Trough Rheumatoid Factor Complement C4 Miscellaneous Test Crossmatch See Detail 09/11/16 09/11/16 09/11/16 05:10 05:10 05:17 WBC 28.4 H RBC Hgb 9.2 L Hct 29.3 L D MCV 73 L MCH 23 L MCHC RDW 18.9 H Plt Count 452 H Lymph % (Auto) [place] % (Auto) Lymph # [place] # Baso # Seg Neutrophils % Seg Neuts % (Manual) 89.5 H Lymphocytes % (Manual) 2.0 L Monocytes % (Manual) Eosinophils % (Manual) Basophils % (Manual) Nucleated RBC % Seg Neutrophils # Seg Neutrophils # Man 25.4 H Lymphocytes # (Manual) 0.6 L Monocytes # (Manual) 1.3 H Eosinophils # (Manual) Basophils # (Manual) PT INR Fibrinogen dRVVT Confirm Interp Factor V Activity POC ABG pH POC ABG pCO2 POC ABG pO2 ABG pO2 ABG HCO3 ABG Base Excess ABG Hemoglobin Oxyhemoglobin Sodium 136 L Potassium Chloride Carbon Dioxide 18 L BUN 107 H Creatinine 2.6 H Glucose 187 H POC Glucose 230 H Lactic Acid Calcium 8.3 L Phosphorus Magnesium Direct Bilirubin AST ALT Alkaline Phosphatase Lactate Dehydrogenase Troponin T C-Reactive Protein Total Protein Albumin Prealbumin Triglycerides Cholesterol LDL Cholesterol Direct HDL Cholesterol Urine pH Urine WBC (Auto) Urine Creatinine Urine Total Protein Fluid Total Protein Vancomycin Trough Rheumatoid Factor Complement C4 Miscellaneous Test Crossmatch 09/11/16 09/11/16 09/11/16 05:55 12:02 17:32 WBC RBC Hgb Hct MCV MCH MCHC RDW Plt Count Lymph % (Auto) [place] % (Auto) Lymph # [place] # Baso # Seg Neutrophils % Seg Neuts % (Manual) Lymphocytes % (Manual) Monocytes % (Manual) Eosinophils % (Manual) Basophils % (Manual) Nucleated RBC % Seg Neutrophils # Seg Neutrophils # Man Lymphocytes # (Manual) Monocytes # (Manual) Eosinophils # (Manual) Basophils # (Manual) PT INR Fibrinogen dRVVT Confirm Interp Factor V Activity POC ABG pH POC ABG pCO2 33.8 L POC ABG pO2 ABG pO2 ABG HCO3 ABG Base Excess ABG Hemoglobin Oxyhemoglobin Sodium Potassium Chloride Carbon Dioxide BUN Creatinine Glucose POC Glucose 191 H 239 H Lactic Acid Calcium Phosphorus Magnesium Direct Bilirubin AST ALT Alkaline Phosphatase Lactate Dehydrogenase Troponin T C-Reactive Protein Total Protein Albumin Prealbumin Triglycerides Cholesterol LDL Cholesterol Direct HDL Cholesterol Urine pH Urine WBC (Auto) Urine Creatinine Urine Total Protein Fluid Total Protein Vancomycin Trough Rheumatoid Factor Complement C4 Miscellaneous Test Crossmatch 09/11/16 09/12/16 09/12/16 23:52 05:09 05:32 WBC RBC Hgb Hct MCV MCH MCHC RDW Plt Count Lymph % (Auto) [place] % (Auto) Lymph # [place] # Baso # Seg Neutrophils % Seg Neuts % (Manual) Lymphocytes % (Manual) Monocytes % (Manual) Eosinophils % (Manual) Basophils % (Manual) Nucleated RBC % Seg Neutrophils # Seg Neutrophils # Man Lymphocytes # (Manual) Monocytes # (Manual) Eosinophils # (Manual) Basophils # (Manual) PT INR Fibrinogen dRVVT Confirm Interp Factor V Activity POC ABG pH POC ABG pCO2 34.6 L POC ABG pO2 ABG pO2 ABG HCO3 ABG Base Excess ABG Hemoglobin Oxyhemoglobin Sodium Potassium Chloride Carbon Dioxide BUN Creatinine Glucose POC Glucose 265 H 184 H Lactic Acid Calcium Phosphorus Magnesium Direct Bilirubin AST ALT Alkaline Phosphatase Lactate Dehydrogenase Troponin T C-Reactive Protein Total Protein Albumin Prealbumin Triglycerides Cholesterol LDL Cholesterol Direct HDL Cholesterol Urine pH Urine WBC (Auto) Urine Creatinine Urine Total Protein Fluid Total Protein Vancomycin Trough Rheumatoid Factor Complement C4 Miscellaneous Test Crossmatch 09/12/16 09/12/16 09/12/16 06:45 06:45 07:22 WBC 31.7 H RBC 3.54 L Hgb 8.3 L Hct 25.9 L MCV 73 L MCH 23 L MCHC RDW 18.9 H Plt Count Lymph % (Auto) [place] % (Auto) Lymph # [place] # Baso # Seg Neutrophils % Seg Neuts % (Manual) 88.5 H Lymphocytes % (Manual) 4.5 L Monocytes % (Manual) Eosinophils % (Manual) Basophils % (Manual) Nucleated RBC % Seg Neutrophils # Seg Neutrophils # Man 28.1 H Lymphocytes # (Manual) Monocytes # (Manual) 1.0 H Eosinophils # (Manual) Basophils # (Manual) PT INR Fibrinogen dRVVT Confirm Interp Factor V Activity POC ABG pH POC ABG pCO2 POC ABG pO2 ABG pO2 ABG HCO3 ABG Base Excess ABG Hemoglobin Oxyhemoglobin Sodium Potassium Chloride Carbon Dioxide 20 L BUN 115 H Creatinine 2.7 H Glucose 165 H POC Glucose Lactic Acid Calcium 8.0 L Phosphorus Magnesium Direct Bilirubin AST ALT Alkaline Phosphatase Lactate Dehydrogenase Troponin T C-Reactive Protein Total Protein Albumin Prealbumin Triglycerides 217 H Cholesterol LDL Cholesterol Direct HDL Cholesterol Urine pH Urine WBC (Auto) Urine Creatinine Urine Total Protein Fluid Total Protein Vancomycin Trough Rheumatoid Factor Complement C4 Miscellaneous Test Crossmatch 09/12/16 09/12/16 09/12/16 07:22 09:59 12:21 WBC RBC Hgb Hct MCV MCH MCHC RDW Plt Count Lymph % (Auto) [place] % (Auto) Lymph # [place] # Baso # Seg Neutrophils % Seg Neuts % (Manual) Lymphocytes % (Manual) Monocytes % (Manual) Eosinophils % (Manual) Basophils % (Manual) Nucleated RBC % Seg Neutrophils # Seg Neutrophils # Man Lymphocytes # (Manual) Monocytes # (Manual) Eosinophils # (Manual) Basophils # (Manual) PT INR Fibrinogen dRVVT Confirm Interp Positive H Factor V Activity POC ABG pH POC ABG pCO2 POC ABG pO2 ABG pO2 ABG HCO3 ABG Base Excess ABG Hemoglobin Oxyhemoglobin Sodium Potassium Chloride Carbon Dioxide BUN Creatinine Glucose POC Glucose 224 H Lactic Acid Calcium Phosphorus Magnesium Direct Bilirubin AST ALT Alkaline Phosphatase Lactate Dehydrogenase Troponin T C-Reactive Protein 1.70 H Total Protein Albumin Prealbumin Triglycerides Cholesterol LDL Cholesterol Direct HDL Cholesterol Urine pH Urine WBC (Auto) Urine Creatinine Urine Total Protein Fluid Total Protein Vancomycin Trough Rheumatoid Factor Complement C4 Miscellaneous Test Crossmatch 09/12/16 09/12/16 09/13/16 16:51 23:28 04:00 WBC 45.0 H* RBC Hgb 9.4 L Hct MCV 75 L MCH 23 L MCHC RDW 19.0 H Plt Count 470 H Lymph % (Auto) [place] % (Auto) Lymph # [place] # Baso # Seg Neutrophils % Seg Neuts % (Manual) 89.0 H Lymphocytes % (Manual) 5.0 L Monocytes % (Manual) Eosinophils % (Manual) Basophils % (Manual) Nucleated RBC % Seg Neutrophils # Seg Neutrophils # Man 40.1 H Lymphocytes # (Manual) Monocytes # (Manual) Eosinophils # (Manual) Basophils # (Manual) PT INR Fibrinogen dRVVT Confirm Interp Factor V Activity POC ABG pH POC ABG pCO2 POC ABG pO2 ABG pO2 ABG HCO3 ABG Base Excess ABG Hemoglobin Oxyhemoglobin Sodium Potassium Chloride Carbon Dioxide BUN Creatinine Glucose POC Glucose 169 H 150 H Lactic Acid Calcium Phosphorus Magnesium Direct Bilirubin AST ALT Alkaline Phosphatase Lactate Dehydrogenase Troponin T C-Reactive Protein Total Protein Albumin Prealbumin Triglycerides Cholesterol LDL Cholesterol Direct HDL Cholesterol Urine pH Urine WBC (Auto) Urine Creatinine Urine Total Protein Fluid Total Protein Vancomycin Trough Rheumatoid Factor Complement C4 Miscellaneous Test Crossmatch 09/13/16 09/13/16 09/13/16 04:00 11:26 17:31 WBC RBC Hgb Hct MCV MCH MCHC RDW Plt Count Lymph % (Auto) [place] % (Auto) Lymph # [place] # Baso # Seg Neutrophils % Seg Neuts % (Manual) Lymphocytes % (Manual) Monocytes % (Manual) Eosinophils % (Manual) Basophils % (Manual) Nucleated RBC % Seg Neutrophils # Seg Neutrophils # Man Lymphocytes # (Manual) Monocytes # (Manual) Eosinophils # (Manual) Basophils # (Manual) PT INR Fibrinogen dRVVT Confirm Interp Factor V Activity POC ABG pH POC ABG pCO2 POC ABG pO2 ABG pO2 ABG HCO3 ABG Base Excess ABG Hemoglobin Oxyhemoglobin Sodium Potassium Chloride Carbon Dioxide 20 L BUN 116 H Creatinine 3.0 H Glucose 172 H POC Glucose 140 H 183 H Lactic Acid Calcium Phosphorus Magnesium Direct Bilirubin AST ALT Alkaline Phosphatase Lactate Dehydrogenase Troponin T C-Reactive Protein Total Protein 6.2 L Albumin 2.9 L Prealbumin Triglycerides Cholesterol LDL Cholesterol Direct HDL Cholesterol Urine pH Urine WBC (Auto) Urine Creatinine Urine Total Protein Fluid Total Protein Vancomycin Trough Rheumatoid Factor Complement C4 Miscellaneous Test Crossmatch 09/13/16 09/14/16 09/14/16 23:23 04:06 04:07 WBC 29.4 H RBC Hgb 8.9 L Hct 27.3 L MCV 75 L MCH 24 L MCHC RDW 19.1 H Plt Count Lymph % (Auto) [place] % (Auto) Lymph # [place] # Baso # Seg Neutrophils % Seg Neuts % (Manual) 84.0 H Lymphocytes % (Manual) 6.0 L Monocytes % (Manual) 9.0 H Eosinophils % (Manual) Basophils % (Manual) Nucleated RBC % Seg Neutrophils # Seg Neutrophils # Man 24.7 H Lymphocytes # (Manual) Monocytes # (Manual) 2.6 H Eosinophils # (Manual) Basophils # (Manual) PT INR Fibrinogen dRVVT Confirm Interp Factor V Activity POC ABG pH 7.342 L POC ABG pCO2 POC ABG pO2 116 H ABG pO2 ABG HCO3 ABG Base Excess ABG Hemoglobin Oxyhemoglobin Sodium Potassium Chloride Carbon Dioxide BUN Creatinine Glucose POC Glucose 154 H Lactic Acid Calcium Phosphorus Magnesium Direct Bilirubin AST ALT Alkaline Phosphatase Lactate Dehydrogenase Troponin T C-Reactive Protein Total Protein Albumin Prealbumin Triglycerides Cholesterol LDL Cholesterol Direct HDL Cholesterol Urine pH Urine WBC (Auto) Urine Creatinine Urine Total Protein Fluid Total Protein Vancomycin Trough Rheumatoid Factor Complement C4 Miscellaneous Test Crossmatch 09/14/16 09/14/16 09/14/16 04:07 05:29 12:19 WBC RBC Hgb Hct MCV MCH MCHC RDW Plt Count Lymph % (Auto) [place] % (Auto) Lymph # [place] # Baso # Seg Neutrophils % Seg Neuts % (Manual) Lymphocytes % (Manual) Monocytes % (Manual) Eosinophils % (Manual) Basophils % (Manual) Nucleated RBC % Seg Neutrophils # Seg Neutrophils # Man Lymphocytes # (Manual) Monocytes # (Manual) Eosinophils # (Manual) Basophils # (Manual) PT INR Fibrinogen dRVVT Confirm Interp Factor V Activity POC ABG pH POC ABG pCO2 POC ABG pO2 ABG pO2 ABG HCO3 ABG Base Excess ABG Hemoglobin Oxyhemoglobin Sodium 136 L Potassium Chloride Carbon Dioxide 18 L BUN 121 H Creatinine 2.8 H Glucose 214 H POC Glucose 239 H 181 H Lactic Acid Calcium Phosphorus Magnesium Direct Bilirubin AST ALT Alkaline Phosphatase Lactate Dehydrogenase Troponin T C-Reactive Protein Total Protein Albumin Prealbumin Triglycerides Cholesterol LDL Cholesterol Direct HDL Cholesterol Urine pH Urine WBC (Auto) Urine Creatinine Urine Total Protein Fluid Total Protein Vancomycin Trough Rheumatoid Factor Complement C4 Miscellaneous Test Crossmatch 09/14/16 09/14/16 09/15/16 18:12 23:37 05:00 WBC 26.1 H RBC 3.05 L Hgb 7.2 L Hct 22.9 L MCV 75 L MCH 24 L MCHC RDW 19.0 H Plt Count Lymph % (Auto) [place] % (Auto) Lymph # [place] # Baso # Seg Neutrophils % Seg Neuts % (Manual) Lymphocytes % (Manual) Monocytes % (Manual) Eosinophils % (Manual) Basophils % (Manual) Nucleated RBC % Seg Neutrophils # Seg Neutrophils # Man Lymphocytes # (Manual) Monocytes # (Manual) Eosinophils # (Manual) Basophils # (Manual) PT INR Fibrinogen dRVVT Confirm Interp Factor V Activity POC ABG pH POC ABG pCO2 POC ABG pO2 ABG pO2 ABG HCO3 ABG Base Excess ABG Hemoglobin Oxyhemoglobin Sodium Potassium Chloride Carbon Dioxide BUN Creatinine Glucose POC Glucose 266 H 154 H Lactic Acid Calcium Phosphorus Magnesium Direct Bilirubin AST ALT Alkaline Phosphatase Lactate Dehydrogenase Troponin T C-Reactive Protein Total Protein Albumin Prealbumin Triglycerides Cholesterol LDL Cholesterol Direct HDL Cholesterol Urine pH Urine WBC (Auto) Urine Creatinine Urine Total Protein Fluid Total Protein Vancomycin Trough Rheumatoid Factor Complement C4 Miscellaneous Test Crossmatch 09/15/16 09/15/16 09/15/16 05:00 05:17 12:45 WBC RBC Hgb Hct MCV MCH MCHC RDW Plt Count Lymph % (Auto) [place] % (Auto) Lymph # [place] # Baso # Seg Neutrophils % Seg Neuts % (Manual) Lymphocytes % (Manual) Monocytes % (Manual) Eosinophils % (Manual) Basophils % (Manual) Nucleated RBC % Seg Neutrophils # Seg Neutrophils # Man Lymphocytes # (Manual) Monocytes # (Manual) Eosinophils # (Manual) Basophils # (Manual) PT INR Fibrinogen dRVVT Confirm Interp Factor V Activity POC ABG pH POC ABG pCO2 POC ABG pO2 ABG pO2 ABG HCO3 ABG Base Excess ABG Hemoglobin Oxyhemoglobin Sodium Potassium 5.2 H Chloride Carbon Dioxide 18 L BUN 139 H Creatinine 3.7 H Glucose 227 H POC Glucose 226 H 244 H Lactic Acid Calcium 8.3 L Phosphorus Magnesium Direct Bilirubin AST ALT Alkaline Phosphatase Lactate Dehydrogenase Troponin T C-Reactive Protein Total Protein Albumin Prealbumin Triglycerides Cholesterol LDL Cholesterol Direct HDL Cholesterol Urine pH Urine WBC (Auto) Urine Creatinine Urine Total Protein Fluid Total Protein Vancomycin Trough Rheumatoid Factor Complement C4 Miscellaneous Test Crossmatch 09/15/16 09/15/16 09/15/16 14:32 17:33 23:35 WBC RBC Hgb Hct MCV MCH MCHC RDW Plt Count Lymph % (Auto) [place] % (Auto) Lymph # [place] # Baso # Seg Neutrophils % Seg Neuts % (Manual) Lymphocytes % (Manual) Monocytes % (Manual) Eosinophils % (Manual) Basophils % (Manual) Nucleated RBC % Seg Neutrophils # Seg Neutrophils # Man Lymphocytes # (Manual) Monocytes # (Manual) Eosinophils # (Manual) Basophils # (Manual) PT INR Fibrinogen dRVVT Confirm Interp Factor V Activity POC ABG pH POC ABG pCO2 27.7 L POC ABG pO2 120 H ABG pO2 ABG HCO3 ABG Base Excess ABG Hemoglobin Oxyhemoglobin Sodium Potassium Chloride Carbon Dioxide BUN Creatinine Glucose POC Glucose 232 H 167 H Lactic Acid Calcium Phosphorus Magnesium Direct Bilirubin AST ALT Alkaline Phosphatase Lactate Dehydrogenase Troponin T C-Reactive Protein Total Protein Albumin Prealbumin Triglycerides Cholesterol LDL Cholesterol Direct HDL Cholesterol Urine pH Urine WBC (Auto) Urine Creatinine Urine Total Protein Fluid Total Protein Vancomycin Trough Rheumatoid Factor Complement C4 Miscellaneous Test Crossmatch 09/16/16 09/16/16 09/16/16 03:58 10:27 10:27 WBC 19.0 H RBC 2.77 L Hgb 6.5 L Hct 20.9 L MCV 76 L MCH 23 L MCHC RDW 19.3 H Plt Count Lymph % (Auto) 11.0 L [place] % (Auto) Lymph # [place] # 1.1 H Baso # Seg Neutrophils % 82.5 H Seg Neuts % (Manual) Lymphocytes % (Manual) Monocytes % (Manual) Eosinophils % (Manual) Basophils % (Manual) Nucleated RBC % Seg Neutrophils # 15.7 H Seg Neutrophils # Man Lymphocytes # (Manual) Monocytes # (Manual) Eosinophils # (Manual) Basophils # (Manual) PT INR Fibrinogen dRVVT Confirm Interp Factor V Activity POC ABG pH POC ABG pCO2 POC ABG pO2 ABG pO2 ABG HCO3 ABG Base Excess ABG Hemoglobin Oxyhemoglobin Sodium Potassium Chloride 109.3 H Carbon Dioxide 18 L BUN 139 H Creatinine 4.1 H Glucose 144 H POC Glucose 146 H Lactic Acid Calcium 8.1 L Phosphorus Magnesium Direct Bilirubin AST ALT Alkaline Phosphatase Lactate Dehydrogenase Troponin T C-Reactive Protein Total Protein Albumin Prealbumin Triglycerides Cholesterol LDL Cholesterol Direct HDL Cholesterol Urine pH Urine WBC (Auto) Urine Creatinine Urine Total Protein Fluid Total Protein Vancomycin Trough Rheumatoid Factor Complement C4 Miscellaneous Test Crossmatch 09/16/16 09/16/16 09/16/16 12:04 12:10 13:55 WBC RBC Hgb Hct MCV MCH MCHC RDW Plt Count Lymph % (Auto) [place] % (Auto) Lymph # [place] # Baso # Seg Neutrophils % Seg Neuts % (Manual) Lymphocytes % (Manual) Monocytes % (Manual) Eosinophils % (Manual) Basophils % (Manual) Nucleated RBC % Seg Neutrophils # Seg Neutrophils # Man Lymphocytes # (Manual) Monocytes # (Manual) Eosinophils # (Manual) Basophils # (Manual) PT INR Fibrinogen dRVVT Confirm Interp Factor V Activity POC ABG pH POC ABG pCO2 32.9 L POC ABG pO2 ABG pO2 ABG HCO3 ABG Base Excess ABG Hemoglobin Oxyhemoglobin Sodium Potassium Chloride Carbon Dioxide BUN Creatinine Glucose POC Glucose 185 H Lactic Acid Calcium Phosphorus Magnesium Direct Bilirubin AST ALT Alkaline Phosphatase Lactate Dehydrogenase Troponin T C-Reactive Protein Total Protein Albumin Prealbumin Triglycerides Cholesterol LDL Cholesterol Direct HDL Cholesterol Urine pH Urine WBC (Auto) Urine Creatinine Urine Total Protein Fluid Total Protein Vancomycin Trough Rheumatoid Factor Complement C4 Miscellaneous Test Crossmatch See Detail 09/16/16 09/16/16 09/16/16 17:55 19:19 23:48 WBC RBC Hgb Hct MCV MCH MCHC RDW Plt Count Lymph % (Auto) [place] % (Auto) Lymph # [place] # Baso # Seg Neutrophils % Seg Neuts % (Manual) Lymphocytes % (Manual) Monocytes % (Manual) Eosinophils % (Manual) Basophils % (Manual) Nucleated RBC % Seg Neutrophils # Seg Neutrophils # Man Lymphocytes # (Manual) Monocytes # (Manual) Eosinophils # (Manual) Basophils # (Manual) PT INR Fibrinogen dRVVT Confirm Interp Factor V Activity POC ABG pH POC ABG pCO2 POC ABG pO2 ABG pO2 ABG HCO3 ABG Base Excess ABG Hemoglobin Oxyhemoglobin Sodium Potassium Chloride Carbon Dioxide BUN Creatinine Glucose POC Glucose 222 H 107 H Lactic Acid Calcium Phosphorus Magnesium Direct Bilirubin AST ALT Alkaline Phosphatase Lactate Dehydrogenase Troponin T C-Reactive Protein Total Protein Albumin Prealbumin Triglycerides Cholesterol LDL Cholesterol Direct HDL Cholesterol Urine pH Urine WBC (Auto) Urine Creatinine 47.4 H Urine Total Protein 16 H Fluid Total Protein Vancomycin Trough Rheumatoid Factor Complement C4 Miscellaneous Test Crossmatch 09/17/16 09/17/16 09/17/16 03:45 03:45 04:55 WBC 19.6 H RBC 3.41 L Hgb 8.5 L Hct 26.7 L MCV 78 L MCH 25 L MCHC RDW 19.9 H Plt Count Lymph % (Auto) 9.3 L [place] % (Auto) Lymph # [place] # 1.2 H Baso # Seg Neutrophils % 83.9 H Seg Neuts % (Manual) Lymphocytes % (Manual) Monocytes % (Manual) Eosinophils % (Manual) Basophils % (Manual) Nucleated RBC % Seg Neutrophils # 16.4 H Seg Neutrophils # Man Lymphocytes # (Manual) Monocytes # (Manual) Eosinophils # (Manual) Basophils # (Manual) PT INR Fibrinogen dRVVT Confirm Interp Factor V Activity POC ABG pH POC ABG pCO2 POC ABG pO2 ABG pO2 ABG HCO3 ABG Base Excess ABG Hemoglobin Oxyhemoglobin Sodium 146 H Potassium 5.1 H Chloride 110.9 H Carbon Dioxide 16 L BUN 146 H Creatinine 4.0 H Glucose 108 H POC Glucose 133 H Lactic Acid Calcium Phosphorus Magnesium 3.00 H Direct Bilirubin AST ALT Alkaline Phosphatase Lactate Dehydrogenase Troponin T C-Reactive Protein Total Protein Albumin Prealbumin Triglycerides Cholesterol LDL Cholesterol Direct HDL Cholesterol Urine pH Urine WBC (Auto) Urine Creatinine Urine Total Protein Fluid Total Protein Vancomycin Trough Rheumatoid Factor Complement C4 Miscellaneous Test Crossmatch 09/17/16 09/17/16 09/17/16 11:15 17:33 23:47 WBC RBC Hgb Hct MCV MCH MCHC RDW Plt Count Lymph % (Auto) [place] % (Auto) Lymph # [place] # Baso # Seg Neutrophils % Seg Neuts % (Manual) Lymphocytes % (Manual) Monocytes % (Manual) Eosinophils % (Manual) Basophils % (Manual) Nucleated RBC % Seg Neutrophils # Seg Neutrophils # Man Lymphocytes # (Manual) Monocytes # (Manual) Eosinophils # (Manual) Basophils # (Manual) PT INR Fibrinogen dRVVT Confirm Interp Factor V Activity POC ABG pH POC ABG pCO2 POC ABG pO2 ABG pO2 ABG HCO3 ABG Base Excess ABG Hemoglobin Oxyhemoglobin Sodium Potassium Chloride Carbon Dioxide BUN Creatinine Glucose POC Glucose 176 H 246 H 148 H Lactic Acid Calcium Phosphorus Magnesium Direct Bilirubin AST ALT Alkaline Phosphatase Lactate Dehydrogenase Troponin T C-Reactive Protein Total Protein Albumin Prealbumin Triglycerides Cholesterol LDL Cholesterol Direct HDL Cholesterol Urine pH Urine WBC (Auto) Urine Creatinine Urine Total Protein Fluid Total Protein Vancomycin Trough Rheumatoid Factor Complement C4 Miscellaneous Test Crossmatch 09/18/16 09/18/16 09/18/16 05:33 08:31 08:31 WBC 18.0 H RBC 3.17 L Hgb 9.0 L Hct 25.7 L MCV MCH MCHC 35 H RDW 20.4 H Plt Count Lymph % (Auto) [place] % (Auto) Lymph # [place] # Baso # Seg Neutrophils % Seg Neuts % (Manual) Lymphocytes % (Manual) Monocytes % (Manual) Eosinophils % (Manual) Basophils % (Manual) Nucleated RBC % Seg Neutrophils # Seg Neutrophils # Man Lymphocytes # (Manual) Monocytes # (Manual) Eosinophils # (Manual) Basophils # (Manual) PT INR Fibrinogen dRVVT Confirm Interp Factor V Activity POC ABG pH POC ABG pCO2 POC ABG pO2 ABG pO2 ABG HCO3 ABG Base Excess ABG Hemoglobin Oxyhemoglobin Sodium Potassium Chloride Carbon Dioxide 15 L BUN 124 H Creatinine 3.8 H Glucose POC Glucose 120 H Lactic Acid Calcium 8.1 L Phosphorus Magnesium Direct Bilirubin AST ALT Alkaline Phosphatase Lactate Dehydrogenase Troponin T C-Reactive Protein Total Protein Albumin Prealbumin Triglycerides Cholesterol LDL Cholesterol Direct HDL Cholesterol Urine pH Urine WBC (Auto) Urine Creatinine Urine Total Protein Fluid Total Protein Vancomycin Trough Rheumatoid Factor Complement C4 Miscellaneous Test Crossmatch 09/18/16 09/18/16 09/18/16 12:03 15:34 17:50 WBC RBC Hgb Hct MCV MCH MCHC RDW Plt Count Lymph % (Auto) [place] % (Auto) Lymph # [place] # Baso # Seg Neutrophils % Seg Neuts % (Manual) Lymphocytes % (Manual) Monocytes % (Manual) Eosinophils % (Manual) Basophils % (Manual) Nucleated RBC % Seg Neutrophils # Seg Neutrophils # Man Lymphocytes # (Manual) Monocytes # (Manual) Eosinophils # (Manual) Basophils # (Manual) PT INR Fibrinogen dRVVT Confirm Interp Factor V Activity POC ABG pH POC ABG pCO2 25.7 L POC ABG pO2 66 L ABG pO2 ABG HCO3 ABG Base Excess ABG Hemoglobin Oxyhemoglobin Sodium Potassium Chloride Carbon Dioxide BUN Creatinine Glucose POC Glucose 156 H 220 H Lactic Acid Calcium Phosphorus Magnesium Direct Bilirubin AST ALT Alkaline Phosphatase Lactate Dehydrogenase Troponin T C-Reactive Protein Total Protein Albumin Prealbumin Triglycerides Cholesterol LDL Cholesterol Direct HDL Cholesterol Urine pH Urine WBC (Auto) Urine Creatinine Urine Total Protein Fluid Total Protein Vancomycin Trough Rheumatoid Factor Complement C4 Miscellaneous Test Crossmatch 09/19/16 09/19/16 09/19/16 06:21 09:50 09:50 WBC 17.1 H RBC 3.49 L Hgb 9.0 L Hct 28.1 L MCV MCH 26 L MCHC RDW 20.8 H Plt Count Lymph % (Auto) 11.5 L [place] % (Auto) 7.5 H Lymph # [place] # 1.3 H Baso # Seg Neutrophils % 79.8 H Seg Neuts % (Manual) Lymphocytes % (Manual) Monocytes % (Manual) Eosinophils % (Manual) Basophils % (Manual) Nucleated RBC % Seg Neutrophils # 13.7 H Seg Neutrophils # Man Lymphocytes # (Manual) Monocytes # (Manual) Eosinophils # (Manual) Basophils # (Manual) PT INR Fibrinogen dRVVT Confirm Interp Factor V Activity POC ABG pH POC ABG pCO2 POC ABG pO2 ABG pO2 ABG HCO3 ABG Base Excess ABG Hemoglobin Oxyhemoglobin Sodium Potassium Chloride 108.6 H Carbon Dioxide 15 L BUN 125 H Creatinine 4.1 H Glucose 124 H POC Glucose 119 H Lactic Acid Calcium Phosphorus Magnesium Direct Bilirubin AST ALT Alkaline Phosphatase Lactate Dehydrogenase Troponin T C-Reactive Protein Total Protein Albumin Prealbumin Triglycerides Cholesterol LDL Cholesterol Direct HDL Cholesterol Urine pH Urine WBC (Auto) Urine Creatinine Urine Total Protein Fluid Total Protein Vancomycin Trough Rheumatoid Factor Complement C4 Miscellaneous Test Crossmatch 09/19/16 09/19/16 09/19/16 11:25 17:53 23:36 WBC RBC Hgb Hct MCV MCH MCHC RDW Plt Count Lymph % (Auto) [place] % (Auto) Lymph # [place] # Baso # Seg Neutrophils % Seg Neuts % (Manual) Lymphocytes % (Manual) Monocytes % (Manual) Eosinophils % (Manual) Basophils % (Manual) Nucleated RBC % Seg Neutrophils # Seg Neutrophils # Man Lymphocytes # (Manual) Monocytes # (Manual) Eosinophils # (Manual) Basophils # (Manual) PT INR Fibrinogen dRVVT Confirm Interp Factor V Activity POC ABG pH POC ABG pCO2 POC ABG pO2 ABG pO2 ABG HCO3 ABG Base Excess ABG Hemoglobin Oxyhemoglobin Sodium Potassium Chloride Carbon Dioxide BUN Creatinine Glucose POC Glucose 160 H 245 H 121 H Lactic Acid Calcium Phosphorus Magnesium Direct Bilirubin AST ALT Alkaline Phosphatase Lactate Dehydrogenase Troponin T C-Reactive Protein Total Protein Albumin Prealbumin Triglycerides Cholesterol LDL Cholesterol Direct HDL Cholesterol Urine pH Urine WBC (Auto) Urine Creatinine Urine Total Protein Fluid Total Protein Vancomycin Trough Rheumatoid Factor Complement C4 Miscellaneous Test Crossmatch 09/20/16 09/20/16 09/20/16 04:10 04:10 04:10 WBC 17.0 H RBC 3.21 L Hgb 8.2 L Hct 25.5 L MCV MCH 26 L MCHC RDW 20.9 H Plt Count Lymph % (Auto) [place] % (Auto) Lymph # [place] # Baso # Seg Neutrophils % Seg Neuts % (Manual) Lymphocytes % (Manual) Monocytes % (Manual) Eosinophils % (Manual) Basophils % (Manual) Nucleated RBC % Seg Neutrophils # Seg Neutrophils # Man Lymphocytes # (Manual) Monocytes # (Manual) Eosinophils # (Manual) Basophils # (Manual) PT INR Fibrinogen dRVVT Confirm Interp Factor V Activity POC ABG pH POC ABG pCO2 POC ABG pO2 ABG pO2 ABG HCO3 ABG Base Excess ABG Hemoglobin Oxyhemoglobin Sodium Potassium Chloride 111.0 H Carbon Dioxide 16 L BUN 129 H Creatinine 3.7 H Glucose 115 H POC Glucose Lactic Acid Calcium 8.2 L Phosphorus Magnesium Direct Bilirubin AST ALT Alkaline Phosphatase Lactate Dehydrogenase Troponin T C-Reactive Protein Total Protein Albumin Prealbumin Triglycerides 243 H Cholesterol LDL Cholesterol Direct HDL Cholesterol Urine pH Urine WBC (Auto) Urine Creatinine Urine Total Protein Fluid Total Protein Vancomycin Trough Rheumatoid Factor Complement C4 Miscellaneous Test Crossmatch 09/20/16 09/20/16 09/20/16 05:40 11:52 16:50 WBC RBC Hgb Hct MCV MCH MCHC RDW Plt Count Lymph % (Auto) [place] % (Auto) Lymph # [place] # Baso # Seg Neutrophils % Seg Neuts % (Manual) Lymphocytes % (Manual) Monocytes % (Manual) Eosinophils % (Manual) Basophils % (Manual) Nucleated RBC % Seg Neutrophils # Seg Neutrophils # Man Lymphocytes # (Manual) Monocytes # (Manual) Eosinophils # (Manual) Basophils # (Manual) PT INR Fibrinogen dRVVT Confirm Interp Factor V Activity POC ABG pH POC ABG pCO2 POC ABG pO2 ABG pO2 ABG HCO3 ABG Base Excess ABG Hemoglobin Oxyhemoglobin Sodium Potassium Chloride Carbon Dioxide BUN Creatinine Glucose POC Glucose 131 H 183 H 236 H Lactic Acid Calcium Phosphorus Magnesium Direct Bilirubin AST ALT Alkaline Phosphatase Lactate Dehydrogenase Troponin T C-Reactive Protein Total Protein Albumin Prealbumin Triglycerides Cholesterol LDL Cholesterol Direct HDL Cholesterol Urine pH Urine WBC (Auto) Urine Creatinine Urine Total Protein Fluid Total Protein Vancomycin Trough Rheumatoid Factor Complement C4 Miscellaneous Test Crossmatch 09/20/16 09/21/16 09/21/16 23:51 03:30 04:44 WBC RBC Hgb Hct MCV MCH MCHC RDW Plt Count Lymph % (Auto) [place] % (Auto) Lymph # [place] # Baso # Seg Neutrophils % Seg Neuts % (Manual) Lymphocytes % (Manual) Monocytes % (Manual) Eosinophils % (Manual) Basophils % (Manual) Nucleated RBC % Seg Neutrophils # Seg Neutrophils # Man Lymphocytes # (Manual) Monocytes # (Manual) Eosinophils # (Manual) Basophils # (Manual) PT INR Fibrinogen dRVVT Confirm Interp Factor V Activity POC ABG pH POC ABG pCO2 POC ABG pO2 ABG pO2 ABG HCO3 ABG Base Excess ABG Hemoglobin Oxyhemoglobin Sodium Potassium Chloride Carbon Dioxide BUN Creatinine Glucose POC Glucose 114 H 141 H Lactic Acid Calcium Phosphorus Magnesium 2.70 H Direct Bilirubin AST ALT Alkaline Phosphatase Lactate Dehydrogenase Troponin T C-Reactive Protein Total Protein Albumin Prealbumin Triglycerides Cholesterol LDL Cholesterol Direct HDL Cholesterol Urine pH Urine WBC (Auto) Urine Creatinine Urine Total Protein Fluid Total Protein Vancomycin Trough Rheumatoid Factor Complement C4 Miscellaneous Test Crossmatch 09/21/16 09/21/16 09/21/16 07:45 07:45 10:01 WBC 13.8 H RBC 2.94 L Hgb 7.5 L Hct 23.5 L MCV MCH 26 L MCHC RDW 21.2 H Plt Count Lymph % (Auto) 6.9 L [place] % (Auto) 9.4 H Lymph # 0.9 L [place] # 1.3 H Baso # Seg Neutrophils % 83.2 H Seg Neuts % (Manual) Lymphocytes % (Manual) Monocytes % (Manual) Eosinophils % (Manual) Basophils % (Manual) Nucleated RBC % Seg Neutrophils # 11.5 H Seg Neutrophils # Man Lymphocytes # (Manual) Monocytes # (Manual) Eosinophils # (Manual) Basophils # (Manual) PT INR Fibrinogen dRVVT Confirm Interp Factor V Activity POC ABG pH 7.308 L POC ABG pCO2 31.9 L POC ABG pO2 148 H ABG pO2 ABG HCO3 ABG Base Excess ABG Hemoglobin Oxyhemoglobin Sodium 147 H Potassium Chloride 114.2 H Carbon Dioxide 15 L BUN 120 H Creatinine 3.9 H Glucose 156 H POC Glucose Lactic Acid Calcium 8.2 L Phosphorus Magnesium Direct Bilirubin AST ALT Alkaline Phosphatase Lactate Dehydrogenase Troponin T C-Reactive Protein Total Protein Albumin Prealbumin Triglycerides Cholesterol LDL Cholesterol Direct HDL Cholesterol Urine pH Urine WBC (Auto) Urine Creatinine Urine Total Protein Fluid Total Protein Vancomycin Trough Rheumatoid Factor Complement C4 Miscellaneous Test Crossmatch 09/21/16 09/21/16 09/21/16 12:00 12:03 13:00 WBC RBC Hgb Hct MCV MCH MCHC RDW Plt Count Lymph % (Auto) [place] % (Auto) Lymph # [place] # Baso # Seg Neutrophils % Seg Neuts % (Manual) Lymphocytes % (Manual) Monocytes % (Manual) Eosinophils % (Manual) Basophils % (Manual) Nucleated RBC % Seg Neutrophils # Seg Neutrophils # Man Lymphocytes # (Manual) Monocytes # (Manual) Eosinophils # (Manual) Basophils # (Manual) PT INR Fibrinogen dRVVT Confirm Interp Factor V Activity POC ABG pH POC ABG pCO2 POC ABG pO2 ABG pO2 ABG HCO3 ABG Base Excess ABG Hemoglobin Oxyhemoglobin Sodium Potassium Chloride Carbon Dioxide BUN Creatinine Glucose POC Glucose 163 H Lactic Acid Calcium Phosphorus Magnesium Direct Bilirubin AST ALT Alkaline Phosphatase Lactate Dehydrogenase Troponin T C-Reactive Protein Total Protein Albumin Prealbumin Triglycerides Cholesterol LDL Cholesterol Direct HDL Cholesterol Urine pH Urine WBC (Auto) Urine Creatinine 54.8 H Urine Total Protein Fluid Total Protein Vancomycin Trough 2.3 L Rheumatoid Factor Complement C4 Miscellaneous Test Crossmatch 09/21/16 09/21/16 09/22/16 16:51 23:17 06:27 WBC RBC Hgb Hct MCV MCH MCHC RDW Plt Count Lymph % (Auto) [place] % (Auto) Lymph # [place] # Baso # Seg Neutrophils % Seg Neuts % (Manual) Lymphocytes % (Manual) Monocytes % (Manual) Eosinophils % (Manual) Basophils % (Manual) Nucleated RBC % Seg Neutrophils # Seg Neutrophils # Man Lymphocytes # (Manual) Monocytes # (Manual) Eosinophils # (Manual) Basophils # (Manual) PT INR Fibrinogen dRVVT Confirm Interp Factor V Activity POC ABG pH POC ABG pCO2 POC ABG pO2 ABG pO2 ABG HCO3 ABG Base Excess ABG Hemoglobin Oxyhemoglobin Sodium Potassium Chloride Carbon Dioxide BUN Creatinine Glucose POC Glucose 206 H 114 H 115 H Lactic Acid Calcium Phosphorus Magnesium Direct Bilirubin AST ALT Alkaline Phosphatase Lactate Dehydrogenase Troponin T C-Reactive Protein Total Protein Albumin Prealbumin Triglycerides Cholesterol LDL Cholesterol Direct HDL Cholesterol Urine pH Urine WBC (Auto) Urine Creatinine Urine Total Protein Fluid Total Protein Vancomycin Trough Rheumatoid Factor Complement C4 Miscellaneous Test Crossmatch 09/22/16 09/22/16 09/22/16 07:50 07:50 12:00 WBC 17.8 H RBC 3.04 L Hgb 8.0 L Hct 24.7 L MCV MCH 26 L MCHC RDW 21.6 H Plt Count Lymph % (Auto) [place] % (Auto) Lymph # [place] # Baso # Seg Neutrophils % Seg Neuts % (Manual) Lymphocytes % (Manual) Monocytes % (Manual) Eosinophils % (Manual) Basophils % (Manual) Nucleated RBC % Seg Neutrophils # Seg Neutrophils # Man Lymphocytes # (Manual) Monocytes # (Manual) Eosinophils # (Manual) Basophils # (Manual) PT INR Fibrinogen dRVVT Confirm Interp Factor V Activity POC ABG pH POC ABG pCO2 POC ABG pO2 ABG pO2 ABG HCO3 ABG Base Excess ABG Hemoglobin Oxyhemoglobin Sodium 150 H Potassium Chloride 118.2 H Carbon Dioxide 14 L BUN 111 H Creatinine 3.7 H Glucose 157 H POC Glucose 183 H Lactic Acid Calcium Phosphorus Magnesium Direct Bilirubin AST ALT Alkaline Phosphatase Lactate Dehydrogenase Troponin T C-Reactive Protein Total Protein Albumin Prealbumin Triglycerides Cholesterol LDL Cholesterol Direct HDL Cholesterol Urine pH Urine WBC (Auto) Urine Creatinine Urine Total Protein Fluid Total Protein Vancomycin Trough Rheumatoid Factor Complement C4 Miscellaneous Test Crossmatch 09/22/16 09/22/16 09/23/16 17:29 23:10 05:00 WBC 19.2 H RBC 3.13 L Hgb 8.0 L Hct 25.2 L MCV MCH 26 L MCHC RDW 22.1 H Plt Count Lymph % (Auto) [place] % (Auto) Lymph # [place] # Baso # Seg Neutrophils % Seg Neuts % (Manual) 92.0 H Lymphocytes % (Manual) 3.0 L Monocytes % (Manual) Eosinophils % (Manual) Basophils % (Manual) Nucleated RBC % Seg Neutrophils # Seg Neutrophils # Man 17.7 H Lymphocytes # (Manual) 0.6 L Monocytes # (Manual) Eosinophils # (Manual) Basophils # (Manual) PT INR Fibrinogen dRVVT Confirm Interp Factor V Activity POC ABG pH POC ABG pCO2 POC ABG pO2 ABG pO2 ABG HCO3 ABG Base Excess ABG Hemoglobin Oxyhemoglobin Sodium Potassium Chloride Carbon Dioxide BUN Creatinine Glucose POC Glucose 197 H 169 H Lactic Acid Calcium Phosphorus Magnesium Direct Bilirubin AST ALT Alkaline Phosphatase Lactate Dehydrogenase Troponin T C-Reactive Protein Total Protein Albumin Prealbumin Triglycerides Cholesterol LDL Cholesterol Direct HDL Cholesterol Urine pH Urine WBC (Auto) Urine Creatinine Urine Total Protein Fluid Total Protein Vancomycin Trough Rheumatoid Factor Complement C4 Miscellaneous Test Crossmatch 09/23/16 09/23/16 09/23/16 05:00 05:00 05:10 WBC RBC Hgb Hct MCV MCH MCHC RDW Plt Count Lymph % (Auto) [place] % (Auto) Lymph # [place] # Baso # Seg Neutrophils % Seg Neuts % (Manual) Lymphocytes % (Manual) Monocytes % (Manual) Eosinophils % (Manual) Basophils % (Manual) Nucleated RBC % Seg Neutrophils # Seg Neutrophils # Man Lymphocytes # (Manual) Monocytes # (Manual) Eosinophils # (Manual) Basophils # (Manual) PT INR Fibrinogen dRVVT Confirm Interp Factor V Activity POC ABG pH POC ABG pCO2 POC ABG pO2 ABG pO2 ABG HCO3 ABG Base Excess ABG Hemoglobin Oxyhemoglobin Sodium 147 H Potassium 3.2 L Chloride 115.7 H Carbon Dioxide 13 L BUN 111 H Creatinine 3.8 H Glucose 194 H POC Glucose 188 H Lactic Acid Calcium 7.3 L D Phosphorus Magnesium Direct Bilirubin AST ALT Alkaline Phosphatase Lactate Dehydrogenase Troponin T C-Reactive Protein 3.20 H Total Protein Albumin Prealbumin Triglycerides Cholesterol LDL Cholesterol Direct HDL Cholesterol Urine pH Urine WBC (Auto) Urine Creatinine Urine Total Protein Fluid Total Protein Vancomycin Trough Rheumatoid Factor Complement C4 Miscellaneous Test Crossmatch 09/23/16 09/23/16 09/23/16 11:37 12:29 18:01 WBC RBC Hgb Hct MCV MCH MCHC RDW Plt Count Lymph % (Auto) [place] % (Auto) Lymph # [place] # Baso # Seg Neutrophils % Seg Neuts % (Manual) Lymphocytes % (Manual) Monocytes % (Manual) Eosinophils % (Manual) Basophils % (Manual) Nucleated RBC % Seg Neutrophils # Seg Neutrophils # Man Lymphocytes # (Manual) Monocytes # (Manual) Eosinophils # (Manual) Basophils # (Manual) PT INR Fibrinogen dRVVT Confirm Interp Factor V Activity POC ABG pH POC ABG pCO2 18.9 L POC ABG pO2 143 H ABG pO2 ABG HCO3 ABG Base Excess ABG Hemoglobin Oxyhemoglobin Sodium Potassium Chloride Carbon Dioxide BUN Creatinine Glucose POC Glucose 153 H 108 H Lactic Acid Calcium Phosphorus Magnesium Direct Bilirubin AST ALT Alkaline Phosphatase Lactate Dehydrogenase Troponin T C-Reactive Protein Total Protein Albumin Prealbumin Triglycerides Cholesterol LDL Cholesterol Direct HDL Cholesterol Urine pH Urine WBC (Auto) Urine Creatinine Urine Total Protein Fluid Total Protein Vancomycin Trough Rheumatoid Factor Complement C4 Miscellaneous Test Crossmatch 09/23/16 09/23/16 09/24/16 21:19 23:43 05:16 WBC RBC Hgb Hct MCV MCH MCHC RDW Plt Count Lymph % (Auto) [place] % (Auto) Lymph # [place] # Baso # Seg Neutrophils % Seg Neuts % (Manual) Lymphocytes % (Manual) Monocytes % (Manual) Eosinophils % (Manual) Basophils % (Manual) Nucleated RBC % Seg Neutrophils # Seg Neutrophils # Man Lymphocytes # (Manual) Monocytes # (Manual) Eosinophils # (Manual) Basophils # (Manual) PT INR Fibrinogen dRVVT Confirm Interp Factor V Activity POC ABG pH POC ABG pCO2 17.3 L POC ABG pO2 112 H ABG pO2 ABG HCO3 ABG Base Excess ABG Hemoglobin Oxyhemoglobin Sodium Potassium Chloride Carbon Dioxide BUN Creatinine Glucose POC Glucose 143 H 164 H Lactic Acid Calcium Phosphorus Magnesium Direct Bilirubin AST ALT Alkaline Phosphatase Lactate Dehydrogenase Troponin T C-Reactive Protein Total Protein Albumin Prealbumin Triglycerides Cholesterol LDL Cholesterol Direct HDL Cholesterol Urine pH Urine WBC (Auto) Urine Creatinine Urine Total Protein Fluid Total Protein Vancomycin Trough Rheumatoid Factor Complement C4 Miscellaneous Test Crossmatch 09/24/16 09/24/16 09/24/16 05:21 11:58 17:06 WBC RBC Hgb Hct MCV MCH MCHC RDW Plt Count Lymph % (Auto) [place] % (Auto) Lymph # [place] # Baso # Seg Neutrophils % Seg Neuts % (Manual) Lymphocytes % (Manual) Monocytes % (Manual) Eosinophils % (Manual) Basophils % (Manual) Nucleated RBC % Seg Neutrophils # Seg Neutrophils # Man Lymphocytes # (Manual) Monocytes # (Manual) Eosinophils # (Manual) Basophils # (Manual) PT INR Fibrinogen dRVVT Confirm Interp Factor V Activity POC ABG pH POC ABG pCO2 POC ABG pO2 ABG pO2 ABG HCO3 ABG Base Excess ABG Hemoglobin Oxyhemoglobin Sodium Potassium Chloride Carbon Dioxide 10 L BUN 103 H Creatinine 4.3 H Glucose 163 H POC Glucose 173 H 167 H Lactic Acid Calcium 6.5 L Phosphorus Magnesium Direct Bilirubin AST ALT Alkaline Phosphatase Lactate Dehydrogenase Troponin T C-Reactive Protein Total Protein Albumin Prealbumin Triglycerides Cholesterol LDL Cholesterol Direct HDL Cholesterol Urine pH Urine WBC (Auto) Urine Creatinine Urine Total Protein Fluid Total Protein Vancomycin Trough Rheumatoid Factor Complement C4 Miscellaneous Test Crossmatch 09/24/16 09/24/16 09/24/16 20:15 21:02 23:48 WBC RBC Hgb Hct MCV MCH MCHC RDW Plt Count Lymph % (Auto) [place] % (Auto) Lymph # [place] # Baso # Seg Neutrophils % Seg Neuts % (Manual) Lymphocytes % (Manual) Monocytes % (Manual) Eosinophils % (Manual) Basophils % (Manual) Nucleated RBC % Seg Neutrophils # Seg Neutrophils # Man Lymphocytes # (Manual) Monocytes # (Manual) Eosinophils # (Manual) Basophils # (Manual) PT INR Fibrinogen dRVVT Confirm Interp Factor V Activity POC ABG pH 7.288 L POC ABG pCO2 30.2 L 21.5 L POC ABG pO2 32 L 39 L ABG pO2 ABG HCO3 ABG Base Excess ABG Hemoglobin Oxyhemoglobin Sodium Potassium Chloride Carbon Dioxide BUN Creatinine Glucose POC Glucose 109 H Lactic Acid Calcium Phosphorus Magnesium Direct Bilirubin AST ALT Alkaline Phosphatase Lactate Dehydrogenase Troponin T C-Reactive Protein Total Protein Albumin Prealbumin Triglycerides Cholesterol LDL Cholesterol Direct HDL Cholesterol Urine pH Urine WBC (Auto) Urine Creatinine Urine Total Protein Fluid Total Protein Vancomycin Trough Rheumatoid Factor Complement C4 Miscellaneous Test Crossmatch 09/25/16 09/25/16 09/25/16 04:20 04:20 04:20 WBC RBC 2.58 L Hgb 7.0 L Hct 21.0 L MCV MCH 27 L MCHC RDW 23.8 H Plt Count Lymph % (Auto) [place] % (Auto) Lymph # [place] # Baso # Seg Neutrophils % Seg Neuts % (Manual) Lymphocytes % (Manual) 12.0 L Monocytes % (Manual) Eosinophils % (Manual) 7.0 H Basophils % (Manual) 2.0 H Nucleated RBC % Seg Neutrophils # Seg Neutrophils # Man Lymphocytes # (Manual) 0.9 L Monocytes # (Manual) Eosinophils # (Manual) 0.5 H Basophils # (Manual) PT INR Fibrinogen dRVVT Confirm Interp Factor V Activity POC ABG pH POC ABG pCO2 POC ABG pO2 ABG pO2 ABG HCO3 ABG Base Excess ABG Hemoglobin Oxyhemoglobin Sodium Potassium Chloride Carbon Dioxide 15 L BUN 72 H Creatinine 3.8 H Glucose POC Glucose Lactic Acid Calcium 6.0 L Phosphorus 4.60 H Magnesium 1.60 L Direct Bilirubin AST ALT Alkaline Phosphatase Lactate Dehydrogenase Troponin T C-Reactive Protein Total Protein Albumin Prealbumin Triglycerides Cholesterol LDL Cholesterol Direct HDL Cholesterol Urine pH Urine WBC (Auto) Urine Creatinine Urine Total Protein Fluid Total Protein Vancomycin Trough Rheumatoid Factor Complement C4 Miscellaneous Test Crossmatch 09/25/16 09/25/16 09/25/16 04:57 08:02 10:30 WBC RBC Hgb Hct MCV MCH MCHC RDW Plt Count Lymph % (Auto) [place] % (Auto) Lymph # [place] # Baso # Seg Neutrophils % Seg Neuts % (Manual) Lymphocytes % (Manual) Monocytes % (Manual) Eosinophils % (Manual) Basophils % (Manual) Nucleated RBC % Seg Neutrophils # Seg Neutrophils # Man Lymphocytes # (Manual) Monocytes # (Manual) Eosinophils # (Manual) Basophils # (Manual) PT INR Fibrinogen dRVVT Confirm Interp Factor V Activity POC ABG pH POC ABG pCO2 24.7 L POC ABG pO2 152 H ABG pO2 ABG HCO3 ABG Base Excess ABG Hemoglobin Oxyhemoglobin Sodium Potassium Chloride Carbon Dioxide BUN Creatinine Glucose POC Glucose 113 H Lactic Acid Calcium Phosphorus Magnesium Direct Bilirubin AST ALT Alkaline Phosphatase Lactate Dehydrogenase Troponin T C-Reactive Protein Total Protein Albumin Prealbumin Triglycerides Cholesterol LDL Cholesterol Direct HDL Cholesterol Urine pH Urine WBC (Auto) Urine Creatinine Urine Total Protein Fluid Total Protein Vancomycin Trough Rheumatoid Factor Complement C4 Miscellaneous Test Crossmatch See Detail 09/25/16 09/25/16 09/25/16 12:05 17:44 23:47 WBC RBC Hgb Hct MCV MCH MCHC RDW Plt Count Lymph % (Auto) [place] % (Auto) Lymph # [place] # Baso # Seg Neutrophils % Seg Neuts % (Manual) Lymphocytes % (Manual) Monocytes % (Manual) Eosinophils % (Manual) Basophils % (Manual) Nucleated RBC % Seg Neutrophils # Seg Neutrophils # Man Lymphocytes # (Manual) Monocytes # (Manual) Eosinophils # (Manual) Basophils # (Manual) PT INR Fibrinogen dRVVT Confirm Interp Factor V Activity POC ABG pH POC ABG pCO2 POC ABG pO2 ABG pO2 ABG HCO3 ABG Base Excess ABG Hemoglobin Oxyhemoglobin Sodium Potassium Chloride Carbon Dioxide BUN Creatinine Glucose POC Glucose 117 H 119 H 150 H Lactic Acid Calcium Phosphorus Magnesium Direct Bilirubin AST ALT Alkaline Phosphatase Lactate Dehydrogenase Troponin T C-Reactive Protein Total Protein Albumin Prealbumin Triglycerides Cholesterol LDL Cholesterol Direct HDL Cholesterol Urine pH Urine WBC (Auto) Urine Creatinine Urine Total Protein Fluid Total Protein Vancomycin Trough Rheumatoid Factor Complement C4 Miscellaneous Test Crossmatch 09/26/16 09/26/16 09/26/16 04:25 04:25 04:25 WBC RBC 2.65 L Hgb 7.4 L Hct 21.6 L MCV MCH MCHC RDW 22.5 H Plt Count Lymph % (Auto) [place] % (Auto) Lymph # [place] # Baso # Seg Neutrophils % Seg Neuts % (Manual) Lymphocytes % (Manual) 6.0 L Monocytes % (Manual) Eosinophils % (Manual) 11.0 H Basophils % (Manual) Nucleated RBC % Seg Neutrophils # Seg Neutrophils # Man Lymphocytes # (Manual) 0.4 L Monocytes # (Manual) Eosinophils # (Manual) 0.6 H Basophils # (Manual) PT INR Fibrinogen dRVVT Confirm Interp Factor V Activity POC ABG pH POC ABG pCO2 POC ABG pO2 ABG pO2 ABG HCO3 ABG Base Excess ABG Hemoglobin Oxyhemoglobin Sodium Potassium Chloride 97.0 L Carbon Dioxide 19 L BUN 43 H Creatinine 2.6 H Glucose 130 H POC Glucose Lactic Acid 4.40 H* Calcium 6.7 L Phosphorus Magnesium Direct Bilirubin AST ALT Alkaline Phosphatase Lactate Dehydrogenase Troponin T C-Reactive Protein Total Protein Albumin Prealbumin Triglycerides Cholesterol LDL Cholesterol Direct HDL Cholesterol Urine pH Urine WBC (Auto) Urine Creatinine Urine Total Protein Fluid Total Protein Vancomycin Trough Rheumatoid Factor Complement C4 Miscellaneous Test Crossmatch 09/26/16 09/26/16 09/26/16 05:20 11:44 12:12 WBC RBC Hgb Hct MCV MCH MCHC RDW Plt Count Lymph % (Auto) [place] % (Auto) Lymph # [place] # Baso # Seg Neutrophils % Seg Neuts % (Manual) Lymphocytes % (Manual) Monocytes % (Manual) Eosinophils % (Manual) Basophils % (Manual) Nucleated RBC % Seg Neutrophils # Seg Neutrophils # Man Lymphocytes # (Manual) Monocytes # (Manual) Eosinophils # (Manual) Basophils # (Manual) PT INR Fibrinogen dRVVT Confirm Interp Factor V Activity POC ABG pH POC ABG pCO2 27.0 L POC ABG pO2 69 L ABG pO2 ABG HCO3 ABG Base Excess ABG Hemoglobin Oxyhemoglobin Sodium Potassium Chloride Carbon Dioxide BUN Creatinine Glucose POC Glucose 121 H 128 H Lactic Acid Calcium Phosphorus Magnesium Direct Bilirubin AST ALT Alkaline Phosphatase Lactate Dehydrogenase Troponin T C-Reactive Protein Total Protein Albumin Prealbumin Triglycerides Cholesterol LDL Cholesterol Direct HDL Cholesterol Urine pH Urine WBC (Auto) Urine Creatinine Urine Total Protein Fluid Total Protein Vancomycin Trough Rheumatoid Factor Complement C4 Miscellaneous Test Crossmatch 09/26/16 09/26/16 09/27/16 18:31 23:40 08:20 WBC RBC Hgb Hct MCV MCH MCHC RDW Plt Count Lymph % (Auto) [place] % (Auto) Lymph # [place] # Baso # Seg Neutrophils % Seg Neuts % (Manual) Lymphocytes % (Manual) Monocytes % (Manual) Eosinophils % (Manual) Basophils % (Manual) Nucleated RBC % Seg Neutrophils # Seg Neutrophils # Man Lymphocytes # (Manual) Monocytes # (Manual) Eosinophils # (Manual) Basophils # (Manual) PT INR Fibrinogen dRVVT Confirm Interp Factor V Activity POC ABG pH POC ABG pCO2 POC ABG pO2 ABG pO2 ABG HCO3 ABG Base Excess ABG Hemoglobin Oxyhemoglobin Sodium Potassium Chloride Carbon Dioxide BUN Creatinine Glucose POC Glucose 120 H 133 H Lactic Acid 4.10 H* Calcium Phosphorus Magnesium Direct Bilirubin AST ALT Alkaline Phosphatase Lactate Dehydrogenase Troponin T C-Reactive Protein Total Protein Albumin Prealbumin Triglycerides Cholesterol LDL Cholesterol Direct HDL Cholesterol Urine pH Urine WBC (Auto) Urine Creatinine Urine Total Protein Fluid Total Protein Vancomycin Trough Rheumatoid Factor Complement C4 Miscellaneous Test Crossmatch 09/27/16 09/27/16 09/27/16 11:23 15:00 18:15 WBC RBC Hgb Hct MCV MCH MCHC RDW Plt Count Lymph % (Auto) [place] % (Auto) Lymph # [place] # Baso # Seg Neutrophils % Seg Neuts % (Manual) Lymphocytes % (Manual) Monocytes % (Manual) Eosinophils % (Manual) Basophils % (Manual) Nucleated RBC % Seg Neutrophils # Seg Neutrophils # Man Lymphocytes # (Manual) Monocytes # (Manual) Eosinophils # (Manual) Basophils # (Manual) PT INR Fibrinogen dRVVT Confirm Interp Factor V Activity POC ABG pH 7.459 H POC ABG pCO2 27.1 L POC ABG pO2 140 H ABG pO2 ABG HCO3 ABG Base Excess ABG Hemoglobin Oxyhemoglobin Sodium Potassium Chloride Carbon Dioxide BUN Creatinine Glucose POC Glucose 114 H 127 H Lactic Acid Calcium Phosphorus Magnesium Direct Bilirubin AST ALT Alkaline Phosphatase Lactate Dehydrogenase Troponin T C-Reactive Protein Total Protein Albumin Prealbumin Triglycerides Cholesterol LDL Cholesterol Direct HDL Cholesterol Urine pH Urine WBC (Auto) Urine Creatinine Urine Total Protein Fluid Total Protein Vancomycin Trough Rheumatoid Factor Complement C4 Miscellaneous Test Crossmatch 09/27/16 09/27/16 09/28/16 Unknown Unknown 03:45 WBC RBC 2.49 L Hgb 6.8 L Hct 20.7 L MCV MCH 27 L MCHC RDW 22.1 H Plt Count Lymph % (Auto) [place] % (Auto) Lymph # [place] # Baso # Seg Neutrophils % Seg Neuts % (Manual) 32.0 L Lymphocytes % (Manual) 12.0 L Monocytes % (Manual) 11.0 H Eosinophils % (Manual) 10.0 H Basophils % (Manual) Nucleated RBC % Seg Neutrophils # Seg Neutrophils # Man Lymphocytes # (Manual) 1.0 L Monocytes # (Manual) 0.9 H Eosinophils # (Manual) 0.8 H Basophils # (Manual) PT INR Fibrinogen dRVVT Confirm Interp Factor V Activity POC ABG pH POC ABG pCO2 POC ABG pO2 ABG pO2 ABG HCO3 ABG Base Excess ABG Hemoglobin Oxyhemoglobin Sodium 135 L 135 L Potassium 3.5 L Chloride 93.6 L 94.4 L Carbon Dioxide 17 L 21 L BUN 45 H 28 H Creatinine 3.3 H 2.5 H Glucose 106 H POC Glucose Lactic Acid Calcium 7.3 L 7.1 L Phosphorus Magnesium Direct Bilirubin AST ALT Alkaline Phosphatase Lactate Dehydrogenase Troponin T C-Reactive Protein Total Protein Albumin Prealbumin Triglycerides Cholesterol LDL Cholesterol Direct HDL Cholesterol Urine pH Urine WBC (Auto) Urine Creatinine Urine Total Protein Fluid Total Protein Vancomycin Trough Rheumatoid Factor Complement C4 Miscellaneous Test Crossmatch 09/28/16 09/28/16 09/28/16 03:45 07:25 11:58 WBC 13.3 H RBC 3.01 L Hgb 8.4 L Hct 25.0 L MCV MCH MCHC RDW 20.5 H Plt Count 128 L Lymph % (Auto) [place] % (Auto) Lymph # [place] # Baso # Seg Neutrophils % Seg Neuts % (Manual) Lymphocytes % (Manual) 7.0 L Monocytes % (Manual) Eosinophils % (Manual) 6.0 H Basophils % (Manual) Nucleated RBC % Seg Neutrophils # Seg Neutrophils # Man Lymphocytes # (Manual) 0.9 L Monocytes # (Manual) Eosinophils # (Manual) 0.8 H Basophils # (Manual) PT INR Fibrinogen dRVVT Confirm Interp Factor V Activity POC ABG pH POC ABG pCO2 POC ABG pO2 ABG pO2 ABG HCO3 ABG Base Excess ABG Hemoglobin Oxyhemoglobin Sodium Potassium Chloride Carbon Dioxide BUN Creatinine Glucose POC Glucose 121 H Lactic Acid 4.50 H* Calcium Phosphorus Magnesium Direct Bilirubin AST ALT Alkaline Phosphatase Lactate Dehydrogenase Troponin T C-Reactive Protein Total Protein Albumin Prealbumin Triglycerides Cholesterol LDL Cholesterol Direct HDL Cholesterol Urine pH Urine WBC (Auto) Urine Creatinine Urine Total Protein Fluid Total Protein Vancomycin Trough Rheumatoid Factor Complement C4 Miscellaneous Test Crossmatch 09/29/16 09/29/16 09/29/16 06:45 06:45 06:45 WBC 14.9 H RBC 2.74 L Hgb 7.6 L Hct 23.2 L MCV MCH MCHC RDW 20.5 H Plt Count 81 L Lymph % (Auto) [place] % (Auto) Lymph # [place] # Baso # Seg Neutrophils % Seg Neuts % (Manual) 81.0 H Lymphocytes % (Manual) 4.0 L Monocytes % (Manual) Eosinophils % (Manual) Basophils % (Manual) Nucleated RBC % Seg Neutrophils # Seg Neutrophils # Man 12.1 H Lymphocytes # (Manual) 0.6 L Monocytes # (Manual) Eosinophils # (Manual) Basophils # (Manual) PT INR Fibrinogen dRVVT Confirm Interp Factor V Activity POC ABG pH POC ABG pCO2 POC ABG pO2 ABG pO2 ABG HCO3 ABG Base Excess ABG Hemoglobin Oxyhemoglobin Sodium 133 L Potassium 3.4 L Chloride 92.5 L Carbon Dioxide 21 L BUN 33 H Creatinine 3.0 H Glucose POC Glucose Lactic Acid Calcium 6.6 L Phosphorus Magnesium 1.40 L Direct Bilirubin 0.9 H AST ALT Alkaline Phosphatase Lactate Dehydrogenase Troponin T C-Reactive Protein Total Protein 4.3 L Albumin 1.3 L Prealbumin Triglycerides Cholesterol LDL Cholesterol Direct HDL Cholesterol Urine pH Urine WBC (Auto) Urine Creatinine Urine Total Protein Fluid Total Protein Vancomycin Trough Rheumatoid Factor Complement C4 Miscellaneous Test Crossmatch 09/29/16 09/29/16 09/30/16 17:52 20:12 00:07 WBC RBC Hgb Hct MCV MCH MCHC RDW Plt Count Lymph % (Auto) [place] % (Auto) Lymph # [place] # Baso # Seg Neutrophils % Seg Neuts % (Manual) Lymphocytes % (Manual) Monocytes % (Manual) Eosinophils % (Manual) Basophils % (Manual) Nucleated RBC % Seg Neutrophils # Seg Neutrophils # Man Lymphocytes # (Manual) Monocytes # (Manual) Eosinophils # (Manual) Basophils # (Manual) PT INR Fibrinogen dRVVT Confirm Interp Factor V Activity POC ABG pH POC ABG pCO2 POC ABG pO2 ABG pO2 ABG HCO3 ABG Base Excess ABG Hemoglobin Oxyhemoglobin Sodium Potassium Chloride Carbon Dioxide BUN Creatinine Glucose POC Glucose 50 L 51 L Lactic Acid Calcium Phosphorus Magnesium Direct Bilirubin AST ALT Alkaline Phosphatase Lactate Dehydrogenase Troponin T 0.204 H* C-Reactive Protein Total Protein Albumin Prealbumin Triglycerides Cholesterol 31 L LDL Cholesterol Direct 4 L HDL Cholesterol 3 L Urine pH Urine WBC (Auto) Urine Creatinine Urine Total Protein Fluid Total Protein Vancomycin Trough Rheumatoid Factor Complement C4 Miscellaneous Test Crossmatch 09/30/16 09/30/16 09/30/16 01:30 05:15 06:10 WBC RBC Hgb Hct MCV MCH MCHC RDW Plt Count Lymph % (Auto) [place] % (Auto) Lymph # [place] # Baso # Seg Neutrophils % Seg Neuts % (Manual) Lymphocytes % (Manual) Monocytes % (Manual) Eosinophils % (Manual) Basophils % (Manual) Nucleated RBC % Seg Neutrophils # Seg Neutrophils # Man Lymphocytes # (Manual) Monocytes # (Manual) Eosinophils # (Manual) Basophils # (Manual) PT INR Fibrinogen dRVVT Confirm Interp Factor V Activity POC ABG pH POC ABG pCO2 POC ABG pO2 ABG pO2 ABG HCO3 ABG Base Excess ABG Hemoglobin Oxyhemoglobin Sodium 133 L Potassium 3.2 L Chloride 93.2 L Carbon Dioxide 19 L BUN 36 H Creatinine 3.2 H Glucose 104 H POC Glucose 167 H 146 H Lactic Acid Calcium 6.4 L Phosphorus Magnesium 1.60 L Direct Bilirubin AST ALT Alkaline Phosphatase Lactate Dehydrogenase Troponin T C-Reactive Protein Total Protein Albumin Prealbumin Triglycerides Cholesterol LDL Cholesterol Direct HDL Cholesterol Urine pH Urine WBC (Auto) Urine Creatinine Urine Total Protein Fluid Total Protein Vancomycin Trough Rheumatoid Factor Complement C4 Miscellaneous Test Crossmatch 09/30/16 09/30/16 09/30/16 11:26 13:39 18:38 WBC RBC Hgb Hct MCV MCH MCHC RDW Plt Count Lymph % (Auto) [place] % (Auto) Lymph # [place] # Baso # Seg Neutrophils % Seg Neuts % (Manual) Lymphocytes % (Manual) Monocytes % (Manual) Eosinophils % (Manual) Basophils % (Manual) Nucleated RBC % Seg Neutrophils # Seg Neutrophils # Man Lymphocytes # (Manual) Monocytes # (Manual) Eosinophils # (Manual) Basophils # (Manual) PT INR Fibrinogen dRVVT Confirm Interp Factor V Activity POC ABG pH 7.479 H POC ABG pCO2 29.8 L POC ABG pO2 117 H ABG pO2 ABG HCO3 ABG Base Excess ABG Hemoglobin Oxyhemoglobin Sodium Potassium Chloride Carbon Dioxide BUN Creatinine Glucose POC Glucose 140 H 122 H Lactic Acid Calcium Phosphorus Magnesium Direct Bilirubin AST ALT Alkaline Phosphatase Lactate Dehydrogenase Troponin T C-Reactive Protein Total Protein Albumin Prealbumin Triglycerides Cholesterol LDL Cholesterol Direct HDL Cholesterol Urine pH Urine WBC (Auto) Urine Creatinine Urine Total Protein Fluid Total Protein Vancomycin Trough Rheumatoid Factor Complement C4 Miscellaneous Test Crossmatch 10/01/16 10/01/16 10/01/16 06:00 06:00 12:37 WBC 12.6 H RBC 2.75 L Hgb 7.3 L Hct 23.3 L MCV MCH 27 L MCHC RDW 20.6 H Plt Count 72 L Lymph % (Auto) [place] % (Auto) Lymph # [place] # Baso # Seg Neutrophils % Seg Neuts % (Manual) 31.0 L Lymphocytes % (Manual) 8.0 L Monocytes % (Manual) Eosinophils % (Manual) Basophils % (Manual) Nucleated RBC % 3.0 H Seg Neutrophils # Seg Neutrophils # Man Lymphocytes # (Manual) 1.0 L Monocytes # (Manual) Eosinophils # (Manual) Basophils # (Manual) PT INR Fibrinogen dRVVT Confirm Interp Factor V Activity POC ABG pH POC ABG pCO2 POC ABG pO2 ABG pO2 ABG HCO3 ABG Base Excess ABG Hemoglobin Oxyhemoglobin Sodium 127 L Potassium Chloride 86.8 L Carbon Dioxide 20 L BUN 42 H Creatinine 3.5 H Glucose POC Glucose 65 L Lactic Acid Calcium 7.0 L Phosphorus Magnesium Direct Bilirubin AST ALT Alkaline Phosphatase Lactate Dehydrogenase Troponin T C-Reactive Protein Total Protein Albumin Prealbumin Triglycerides Cholesterol LDL Cholesterol Direct HDL Cholesterol Urine pH Urine WBC (Auto) Urine Creatinine Urine Total Protein Fluid Total Protein Vancomycin Trough Rheumatoid Factor Complement C4 Miscellaneous Test Crossmatch 10/01/16 10/01/16 10/02/16 17:39 23:32 00:59 WBC RBC Hgb Hct MCV MCH MCHC RDW Plt Count Lymph % (Auto) [place] % (Auto) Lymph # [place] # Baso # Seg Neutrophils % Seg Neuts % (Manual) Lymphocytes % (Manual) Monocytes % (Manual) Eosinophils % (Manual) Basophils % (Manual) Nucleated RBC % Seg Neutrophils # Seg Neutrophils # Man Lymphocytes # (Manual) Monocytes # (Manual) Eosinophils # (Manual) Basophils # (Manual) PT INR Fibrinogen dRVVT Confirm Interp Factor V Activity POC ABG pH POC ABG pCO2 POC ABG pO2 ABG pO2 ABG HCO3 ABG Base Excess ABG Hemoglobin Oxyhemoglobin Sodium Potassium Chloride Carbon Dioxide BUN Creatinine Glucose POC Glucose 107 H 52 L 145 H Lactic Acid Calcium Phosphorus Magnesium Direct Bilirubin AST ALT Alkaline Phosphatase Lactate Dehydrogenase Troponin T C-Reactive Protein Total Protein Albumin Prealbumin Triglycerides Cholesterol LDL Cholesterol Direct HDL Cholesterol Urine pH Urine WBC (Auto) Urine Creatinine Urine Total Protein Fluid Total Protein Vancomycin Trough Rheumatoid Factor Complement C4 Miscellaneous Test Crossmatch 10/02/16 10/02/16 10/02/16 10:30 10:50 10:50 WBC 14.7 H RBC 2.76 L Hgb 7.4 L Hct 23.6 L MCV MCH 27 L MCHC RDW 20.2 H Plt Count 79 L Lymph % (Auto) [place] % (Auto) Lymph # [place] # Baso # Seg Neutrophils % Seg Neuts % (Manual) 86.0 H Lymphocytes % (Manual) 6.0 L Monocytes % (Manual) Eosinophils % (Manual) Basophils % (Manual) Nucleated RBC % Seg Neutrophils # Seg Neutrophils # Man 12.6 H Lymphocytes # (Manual) 0.9 L Monocytes # (Manual) Eosinophils # (Manual) Basophils # (Manual) PT INR Fibrinogen dRVVT Confirm Interp Factor V Activity POC ABG pH 7.486 H POC ABG pCO2 30.1 L POC ABG pO2 108 H ABG pO2 ABG HCO3 ABG Base Excess ABG Hemoglobin Oxyhemoglobin Sodium 131 L Potassium 3.4 L Chloride 89.9 L Carbon Dioxide BUN 26 H Creatinine 2.6 H Glucose POC Glucose Lactic Acid Calcium 7.0 L Phosphorus Magnesium Direct Bilirubin AST ALT Alkaline Phosphatase Lactate Dehydrogenase Troponin T C-Reactive Protein Total Protein Albumin Prealbumin Triglycerides Cholesterol LDL Cholesterol Direct HDL Cholesterol Urine pH Urine WBC (Auto) Urine Creatinine Urine Total Protein Fluid Total Protein Vancomycin Trough Rheumatoid Factor Complement C4 Miscellaneous Test Crossmatch 10/02/16 10/03/16 10/03/16 23:45 00:45 05:10 WBC 12.9 H RBC 2.77 L Hgb 7.6 L Hct 23.7 L MCV MCH 27 L MCHC RDW 19.7 H Plt Count 89 L Lymph % (Auto) [place] % (Auto) Lymph # [place] # Baso # Seg Neutrophils % Seg Neuts % (Manual) Lymphocytes % (Manual) 8.0 L Monocytes % (Manual) Eosinophils % (Manual) Basophils % (Manual) Nucleated RBC % Seg Neutrophils # 11.9 H Seg Neutrophils # Man Lymphocytes # (Manual) 1.0 L Monocytes # (Manual) Eosinophils # (Manual) Basophils # (Manual) PT INR Fibrinogen dRVVT Confirm Interp Factor V Activity POC ABG pH POC ABG pCO2 POC ABG pO2 ABG pO2 ABG HCO3 ABG Base Excess ABG Hemoglobin Oxyhemoglobin Sodium Potassium Chloride Carbon Dioxide BUN Creatinine Glucose POC Glucose 55 L 199 H Lactic Acid Calcium Phosphorus Magnesium Direct Bilirubin AST ALT Alkaline Phosphatase Lactate Dehydrogenase Troponin T C-Reactive Protein Total Protein Albumin Prealbumin Triglycerides Cholesterol LDL Cholesterol Direct HDL Cholesterol Urine pH Urine WBC (Auto) Urine Creatinine Urine Total Protein Fluid Total Protein Vancomycin Trough Rheumatoid Factor Complement C4 Miscellaneous Test Crossmatch 10/03/16 10/03/16 10/03/16 05:10 12:14 13:18 WBC RBC Hgb Hct MCV MCH MCHC RDW Plt Count Lymph % (Auto) [place] % (Auto) Lymph # [place] # Baso # Seg Neutrophils % Seg Neuts % (Manual) Lymphocytes % (Manual) Monocytes % (Manual) Eosinophils % (Manual) Basophils % (Manual) Nucleated RBC % Seg Neutrophils # Seg Neutrophils # Man Lymphocytes # (Manual) Monocytes # (Manual) Eosinophils # (Manual) Basophils # (Manual) PT INR Fibrinogen dRVVT Confirm Interp Factor V Activity POC ABG pH POC ABG pCO2 POC ABG pO2 ABG pO2 ABG HCO3 ABG Base Excess ABG Hemoglobin Oxyhemoglobin Sodium 129 L Potassium 3.3 L Chloride 88.8 L Carbon Dioxide 20 L BUN 29 H Creatinine 2.8 H Glucose POC Glucose 68 L 127 H Lactic Acid Calcium 7.2 L Phosphorus Magnesium Direct Bilirubin AST ALT Alkaline Phosphatase Lactate Dehydrogenase Troponin T C-Reactive Protein Total Protein Albumin Prealbumin Triglycerides Cholesterol LDL Cholesterol Direct HDL Cholesterol Urine pH Urine WBC (Auto) Urine Creatinine Urine Total Protein Fluid Total Protein Vancomycin Trough Rheumatoid Factor Complement C4 Miscellaneous Test Crossmatch 10/03/16 10/03/16 10/03/16 14:42 18:21 19:09 WBC RBC Hgb Hct MCV MCH MCHC RDW Plt Count Lymph % (Auto) [place] % (Auto) Lymph # [place] # Baso # Seg Neutrophils % Seg Neuts % (Manual) Lymphocytes % (Manual) Monocytes % (Manual) Eosinophils % (Manual) Basophils % (Manual) Nucleated RBC % Seg Neutrophils # Seg Neutrophils # Man Lymphocytes # (Manual) Monocytes # (Manual) Eosinophils # (Manual) Basophils # (Manual) PT INR Fibrinogen dRVVT Confirm Interp Factor V Activity POC ABG pH 7.499 H POC ABG pCO2 28.4 L POC ABG pO2 44 L ABG pO2 ABG HCO3 ABG Base Excess ABG Hemoglobin Oxyhemoglobin Sodium Potassium Chloride Carbon Dioxide BUN Creatinine Glucose POC Glucose 64 L 205 H Lactic Acid Calcium Phosphorus Magnesium Direct Bilirubin AST ALT Alkaline Phosphatase Lactate Dehydrogenase Troponin T C-Reactive Protein Total Protein Albumin Prealbumin Triglycerides Cholesterol LDL Cholesterol Direct HDL Cholesterol Urine pH Urine WBC (Auto) Urine Creatinine Urine Total Protein Fluid Total Protein Vancomycin Trough Rheumatoid Factor Complement C4 Miscellaneous Test Crossmatch 10/03/16 10/04/16 10/04/16 23:33 04:18 06:30 WBC RBC 2.54 L Hgb 7.1 L Hct 21.7 L MCV MCH MCHC RDW 19.5 H Plt Count 76 L Lymph % (Auto) [place] % (Auto) Lymph # [place] # Baso # Seg Neutrophils % Seg Neuts % (Manual) 88.0 H Lymphocytes % (Manual) 6.0 L Monocytes % (Manual) Eosinophils % (Manual) Basophils % (Manual) Nucleated RBC % Seg Neutrophils # Seg Neutrophils # Man 8.8 H Lymphocytes # (Manual) 0.6 L Monocytes # (Manual) Eosinophils # (Manual) Basophils # (Manual) PT INR Fibrinogen dRVVT Confirm Interp Factor V Activity POC ABG pH 7.461 H POC ABG pCO2 33.6 L POC ABG pO2 211 H ABG pO2 ABG HCO3 ABG Base Excess ABG Hemoglobin Oxyhemoglobin Sodium Potassium Chloride Carbon Dioxide BUN Creatinine Glucose POC Glucose 136 H Lactic Acid Calcium Phosphorus Magnesium Direct Bilirubin AST ALT Alkaline Phosphatase Lactate Dehydrogenase Troponin T C-Reactive Protein Total Protein Albumin Prealbumin Triglycerides Cholesterol LDL Cholesterol Direct HDL Cholesterol Urine pH Urine WBC (Auto) Urine Creatinine Urine Total Protein Fluid Total Protein Vancomycin Trough Rheumatoid Factor Complement C4 Miscellaneous Test Crossmatch 10/04/16 10/04/16 10/04/16 06:30 11:45 17:54 WBC RBC Hgb Hct MCV MCH MCHC RDW Plt Count Lymph % (Auto) [place] % (Auto) Lymph # [place] # Baso # Seg Neutrophils % Seg Neuts % (Manual) Lymphocytes % (Manual) Monocytes % (Manual) Eosinophils % (Manual) Basophils % (Manual) Nucleated RBC % Seg Neutrophils # Seg Neutrophils # Man Lymphocytes # (Manual) Monocytes # (Manual) Eosinophils # (Manual) Basophils # (Manual) PT INR Fibrinogen dRVVT Confirm Interp Factor V Activity POC ABG pH POC ABG pCO2 POC ABG pO2 ABG pO2 ABG HCO3 ABG Base Excess ABG Hemoglobin Oxyhemoglobin Sodium 128 L Potassium Chloride 87.4 L Carbon Dioxide 20 L BUN 34 H Creatinine 2.9 H Glucose 127 H POC Glucose 158 H 160 H Lactic Acid Calcium 7.4 L Phosphorus Magnesium Direct Bilirubin AST ALT Alkaline Phosphatase Lactate Dehydrogenase Troponin T C-Reactive Protein Total Protein Albumin Prealbumin Triglycerides Cholesterol LDL Cholesterol Direct HDL Cholesterol Urine pH Urine WBC (Auto) Urine Creatinine Urine Total Protein Fluid Total Protein Vancomycin Trough Rheumatoid Factor Complement C4 Miscellaneous Test Crossmatch 10/04/16 10/05/16 10/05/16 23:25 04:30 05:00 WBC RBC 2.64 L Hgb 7.5 L Hct 22.6 L MCV MCH MCHC RDW 19.3 H Plt Count 80 L Lymph % (Auto) [place] % (Auto) Lymph # [place] # Baso # Seg Neutrophils % Seg Neuts % (Manual) Lymphocytes % (Manual) 12.0 L Monocytes % (Manual) Eosinophils % (Manual) Basophils % (Manual) Nucleated RBC % Seg Neutrophils # Seg Neutrophils # Man Lymphocytes # (Manual) Monocytes # (Manual) Eosinophils # (Manual) Basophils # (Manual) PT INR Fibrinogen dRVVT Confirm Interp Factor V Activity POC ABG pH 7.475 H POC ABG pCO2 33.3 L POC ABG pO2 140 H ABG pO2 ABG HCO3 ABG Base Excess ABG Hemoglobin Oxyhemoglobin Sodium Potassium Chloride Carbon Dioxide BUN Creatinine Glucose POC Glucose 141 H Lactic Acid Calcium Phosphorus Magnesium Direct Bilirubin AST ALT Alkaline Phosphatase Lactate Dehydrogenase Troponin T C-Reactive Protein Total Protein Albumin Prealbumin Triglycerides Cholesterol LDL Cholesterol Direct HDL Cholesterol Urine pH Urine WBC (Auto) Urine Creatinine Urine Total Protein Fluid Total Protein Vancomycin Trough Rheumatoid Factor Complement C4 Miscellaneous Test Crossmatch 10/05/16 10/05/16 10/05/16 05:00 05:09 12:58 WBC RBC Hgb Hct MCV MCH MCHC RDW Plt Count Lymph % (Auto) [place] % (Auto) Lymph # [place] # Baso # Seg Neutrophils % Seg Neuts % (Manual) Lymphocytes % (Manual) Monocytes % (Manual) Eosinophils % (Manual) Basophils % (Manual) Nucleated RBC % Seg Neutrophils # Seg Neutrophils # Man Lymphocytes # (Manual) Monocytes # (Manual) Eosinophils # (Manual) Basophils # (Manual) PT INR Fibrinogen dRVVT Confirm Interp Factor V Activity POC ABG pH POC ABG pCO2 POC ABG pO2 ABG pO2 ABG HCO3 ABG Base Excess ABG Hemoglobin Oxyhemoglobin Sodium 131 L Potassium Chloride 94.0 L Carbon Dioxide 20 L BUN 22 H Creatinine 2.0 H Glucose 123 H POC Glucose 166 H 179 H Lactic Acid Calcium 7.7 L Phosphorus 2.20 L D Magnesium Direct Bilirubin AST ALT Alkaline Phosphatase Lactate Dehydrogenase Troponin T C-Reactive Protein Total Protein Albumin Prealbumin Triglycerides Cholesterol LDL Cholesterol Direct HDL Cholesterol Urine pH Urine WBC (Auto) Urine Creatinine Urine Total Protein Fluid Total Protein Vancomycin Trough Rheumatoid Factor Complement C4 Miscellaneous Test Crossmatch 10/05/16 10/05/16 10/05/16 15:50 18:53 23:12 WBC RBC Hgb Hct MCV MCH MCHC RDW Plt Count Lymph % (Auto) [place] % (Auto) Lymph # [place] # Baso # Seg Neutrophils % Seg Neuts % (Manual) Lymphocytes % (Manual) Monocytes % (Manual) Eosinophils % (Manual) Basophils % (Manual) Nucleated RBC % Seg Neutrophils # Seg Neutrophils # Man Lymphocytes # (Manual) Monocytes # (Manual) Eosinophils # (Manual) Basophils # (Manual) PT INR Fibrinogen dRVVT Confirm Interp Factor V Activity POC ABG pH POC ABG pCO2 POC ABG pO2 ABG pO2 ABG HCO3 ABG Base Excess ABG Hemoglobin Oxyhemoglobin Sodium Potassium Chloride Carbon Dioxide BUN Creatinine Glucose POC Glucose 150 H 164 H Lactic Acid Calcium Phosphorus Magnesium Direct Bilirubin AST ALT Alkaline Phosphatase Lactate Dehydrogenase Troponin T C-Reactive Protein Total Protein Albumin Prealbumin Triglycerides Cholesterol LDL Cholesterol Direct HDL Cholesterol Urine pH Urine WBC (Auto) Urine Creatinine Urine Total Protein Fluid Total Protein Vancomycin Trough Rheumatoid Factor Complement C4 Miscellaneous Test Crossmatch See Detail 10/06/16 10/06/16 10/06/16 03:50 03:50 04:53 WBC RBC 3.00 L Hgb 8.6 L Hct 25.8 L MCV MCH MCHC RDW 17.9 H Plt Count 65 L Lymph % (Auto) [place] % (Auto) Lymph # [place] # Baso # Seg Neutrophils % Seg Neuts % (Manual) 30.0 L Lymphocytes % (Manual) 5.0 L Monocytes % (Manual) Eosinophils % (Manual) Basophils % (Manual) Nucleated RBC % Seg Neutrophils # Seg Neutrophils # Man Lymphocytes # (Manual) 0.4 L Monocytes # (Manual) Eosinophils # (Manual) Basophils # (Manual) PT INR Fibrinogen dRVVT Confirm Interp Factor V Activity POC ABG pH 7.310 L POC ABG pCO2 49.0 H POC ABG pO2 ABG pO2 ABG HCO3 ABG Base Excess ABG Hemoglobin Oxyhemoglobin Sodium 133 L Potassium Chloride 95.9 L Carbon Dioxide BUN 26 H Creatinine 2.0 H Glucose 116 H POC Glucose Lactic Acid Calcium 7.8 L Phosphorus Magnesium Direct Bilirubin AST ALT Alkaline Phosphatase Lactate Dehydrogenase Troponin T C-Reactive Protein Total Protein Albumin Prealbumin Triglycerides Cholesterol LDL Cholesterol Direct HDL Cholesterol Urine pH Urine WBC (Auto) Urine Creatinine Urine Total Protein Fluid Total Protein Vancomycin Trough Rheumatoid Factor Complement C4 Miscellaneous Test Crossmatch 10/06/16 10/06/16 10/06/16 05:23 11:52 18:34 WBC RBC Hgb Hct MCV MCH MCHC RDW Plt Count Lymph % (Auto) [place] % (Auto) Lymph # [place] # Baso # Seg Neutrophils % Seg Neuts % (Manual) Lymphocytes % (Manual) Monocytes % (Manual) Eosinophils % (Manual) Basophils % (Manual) Nucleated RBC % Seg Neutrophils # Seg Neutrophils # Man Lymphocytes # (Manual) Monocytes # (Manual) Eosinophils # (Manual) Basophils # (Manual) PT INR Fibrinogen dRVVT Confirm Interp Factor V Activity POC ABG pH POC ABG pCO2 POC ABG pO2 ABG pO2 ABG HCO3 ABG Base Excess ABG Hemoglobin Oxyhemoglobin Sodium Potassium Chloride Carbon Dioxide BUN Creatinine Glucose POC Glucose 126 H 116 H 129 H Lactic Acid Calcium Phosphorus Magnesium Direct Bilirubin AST ALT Alkaline Phosphatase Lactate Dehydrogenase Troponin T C-Reactive Protein Total Protein Albumin Prealbumin Triglycerides Cholesterol LDL Cholesterol Direct HDL Cholesterol Urine pH Urine WBC (Auto) Urine Creatinine Urine Total Protein Fluid Total Protein Vancomycin Trough Rheumatoid Factor Complement C4 Miscellaneous Test Crossmatch 10/07/16 10/07/16 10/07/16 03:45 05:00 10:00 WBC 17.0 H RBC 2.68 L Hgb 7.3 L Hct 25.3 L MCV MCH 27 L MCHC 29 L RDW 19.6 H Plt Count 74 L Lymph % (Auto) [place] % (Auto) Lymph # [place] # Baso # Seg Neutrophils % Seg Neuts % (Manual) Lymphocytes % (Manual) 12.0 L Monocytes % (Manual) Eosinophils % (Manual) Basophils % (Manual) Nucleated RBC % 4.0 H Seg Neutrophils # Seg Neutrophils # Man 10.7 H Lymphocytes # (Manual) Monocytes # (Manual) Eosinophils # (Manual) Basophils # (Manual) PT INR Fibrinogen dRVVT Confirm Interp Factor V Activity POC ABG pH POC ABG pCO2 POC ABG pO2 ABG pO2 ABG HCO3 ABG Base Excess ABG Hemoglobin Oxyhemoglobin Sodium 130 L Potassium 3.2 L Chloride 93.9 L Carbon Dioxide 20 L BUN 44 H Creatinine 2.7 H Glucose 129 H POC Glucose Lactic Acid Calcium 7.4 L Phosphorus Magnesium Direct Bilirubin AST ALT 6 L Alkaline Phosphatase 195 H Lactate Dehydrogenase Troponin T C-Reactive Protein Total Protein 4.9 L Albumin 1.0 L Prealbumin Triglycerides Cholesterol LDL Cholesterol Direct HDL Cholesterol Urine pH Urine WBC (Auto) Urine Creatinine Urine Total Protein Fluid Total Protein Vancomycin Trough Rheumatoid Factor Complement C4 Miscellaneous Test Flexitest 1 H Crossmatch 10/07/16 10/07/16 10/07/16 10:00 11:24 18:10 WBC RBC Hgb Hct MCV MCH MCHC RDW Plt Count Lymph % (Auto) [place] % (Auto) Lymph # [place] # Baso # Seg Neutrophils % Seg Neuts % (Manual) Lymphocytes % (Manual) Monocytes % (Manual) Eosinophils % (Manual) Basophils % (Manual) Nucleated RBC % Seg Neutrophils # Seg Neutrophils # Man Lymphocytes # (Manual) Monocytes # (Manual) Eosinophils # (Manual) Basophils # (Manual) PT INR Fibrinogen dRVVT Confirm Interp Factor V Activity POC ABG pH POC ABG pCO2 POC ABG pO2 ABG pO2 ABG HCO3 ABG Base Excess ABG Hemoglobin Oxyhemoglobin Sodium Potassium Chloride Carbon Dioxide BUN Creatinine Glucose POC Glucose 116 H 130 H Lactic Acid Calcium Phosphorus Magnesium Direct Bilirubin AST ALT Alkaline Phosphatase Lactate Dehydrogenase Troponin T C-Reactive Protein 19.40 H Total Protein Albumin Prealbumin Triglycerides Cholesterol LDL Cholesterol Direct HDL Cholesterol Urine pH Urine WBC (Auto) Urine Creatinine Urine Total Protein Fluid Total Protein Vancomycin Trough Rheumatoid Factor Complement C4 Miscellaneous Test Crossmatch 10/07/16 10/08/16 10/08/16 18:30 00:00 04:00 WBC RBC Hgb Hct MCV MCH MCHC RDW Plt Count Lymph % (Auto) [place] % (Auto) Lymph # [place] # Baso # Seg Neutrophils % Seg Neuts % (Manual) Lymphocytes % (Manual) Monocytes % (Manual) Eosinophils % (Manual) Basophils % (Manual) Nucleated RBC % Seg Neutrophils # Seg Neutrophils # Man Lymphocytes # (Manual) Monocytes # (Manual) Eosinophils # (Manual) Basophils # (Manual) PT INR Fibrinogen dRVVT Confirm Interp Factor V Activity POC ABG pH POC ABG pCO2 POC ABG pO2 ABG pO2 ABG HCO3 ABG Base Excess ABG Hemoglobin Oxyhemoglobin Sodium 132 L Potassium 3.3 L Chloride 93.6 L Carbon Dioxide 17 L BUN 59 H Creatinine 2.7 H Glucose 121 H POC Glucose 122 H Lactic Acid Calcium 7.6 L Phosphorus Magnesium Direct Bilirubin AST ALT Alkaline Phosphatase Lactate Dehydrogenase Troponin T C-Reactive Protein Total Protein Albumin Prealbumin Triglycerides Cholesterol LDL Cholesterol Direct HDL Cholesterol Urine pH Urine WBC (Auto) > 182.0 H Urine Creatinine Urine Total Protein Fluid Total Protein Vancomycin Trough Rheumatoid Factor Complement C4 Miscellaneous Test Crossmatch 10/08/16 10/08/16 10/08/16 04:30 05:30 11:51 WBC RBC 5.15 H Hgb 14.4 H D Hct 44.5 H D MCV MCH MCHC RDW 19.5 H Plt Count 56 L Lymph % (Auto) [place] % (Auto) Lymph # [place] # Baso # Seg Neutrophils % Seg Neuts % (Manual) 24.0 L Lymphocytes % (Manual) 8.0 L Monocytes % (Manual) Eosinophils % (Manual) Basophils % (Manual) Nucleated RBC % 9.0 H Seg Neutrophils # Seg Neutrophils # Man Lymphocytes # (Manual) 0.7 L Monocytes # (Manual) Eosinophils # (Manual) Basophils # (Manual) PT INR Fibrinogen dRVVT Confirm Interp Factor V Activity POC ABG pH POC ABG pCO2 POC ABG pO2 ABG pO2 ABG HCO3 ABG Base Excess ABG Hemoglobin Oxyhemoglobin Sodium Potassium Chloride Carbon Dioxide BUN Creatinine Glucose POC Glucose 125 H 150 H Lactic Acid Calcium Phosphorus Magnesium Direct Bilirubin AST ALT Alkaline Phosphatase Lactate Dehydrogenase Troponin T C-Reactive Protein Total Protein Albumin Prealbumin Triglycerides Cholesterol LDL Cholesterol Direct HDL Cholesterol Urine pH Urine WBC (Auto) Urine Creatinine Urine Total Protein Fluid Total Protein Vancomycin Trough Rheumatoid Factor Complement C4 Miscellaneous Test Crossmatch 10/08/16 10/08/16 10/08/16 12:49 17:07 19:30 WBC RBC Hgb 7.1 L D Hct 22.4 L D MCV MCH MCHC RDW Plt Count Lymph % (Auto) [place] % (Auto) Lymph # [place] # Baso # Seg Neutrophils % Seg Neuts % (Manual) Lymphocytes % (Manual) Monocytes % (Manual) Eosinophils % (Manual) Basophils % (Manual) Nucleated RBC % Seg Neutrophils # Seg Neutrophils # Man Lymphocytes # (Manual) Monocytes # (Manual) Eosinophils # (Manual) Basophils # (Manual) PT INR Fibrinogen dRVVT Confirm Interp Factor V Activity POC ABG pH POC ABG pCO2 28.2 L POC ABG pO2 111 H ABG pO2 ABG HCO3 ABG Base Excess ABG Hemoglobin Oxyhemoglobin Sodium Potassium Chloride Carbon Dioxide BUN Creatinine Glucose POC Glucose 145 H Lactic Acid Calcium Phosphorus Magnesium Direct Bilirubin AST ALT Alkaline Phosphatase Lactate Dehydrogenase Troponin T C-Reactive Protein Total Protein Albumin Prealbumin Triglycerides Cholesterol LDL Cholesterol Direct HDL Cholesterol Urine pH Urine WBC (Auto) Urine Creatinine Urine Total Protein Fluid Total Protein Vancomycin Trough Rheumatoid Factor Complement C4 Miscellaneous Test Crossmatch 10/08/16 10/09/16 10/09/16 19:30 03:45 03:45 WBC 12.6 H RBC 2.36 L Hgb 6.7 L Hct 21.1 L MCV MCH MCHC RDW 19.5 H Plt Count 75 L Lymph % (Auto) [place] % (Auto) Lymph # [place] # Baso # Seg Neutrophils % Seg Neuts % (Manual) Lymphocytes % (Manual) Monocytes % (Manual) 10.0 H Eosinophils % (Manual) Basophils % (Manual) Nucleated RBC % 3.0 H Seg Neutrophils # Seg Neutrophils # Man Lymphocytes # (Manual) Monocytes # (Manual) 1.3 H Eosinophils # (Manual) Basophils # (Manual) PT 18.0 H INR 1.41 H Fibrinogen dRVVT Confirm Interp Factor V Activity POC ABG pH POC ABG pCO2 POC ABG pO2 ABG pO2 ABG HCO3 ABG Base Excess ABG Hemoglobin Oxyhemoglobin Sodium 135 L Potassium Chloride Carbon Dioxide 17 L BUN 81 H Creatinine 3.2 H Glucose 109 H POC Glucose Lactic Acid Calcium 7.4 L Phosphorus 4.60 H D Magnesium Direct Bilirubin AST ALT Alkaline Phosphatase Lactate Dehydrogenase Troponin T C-Reactive Protein Total Protein Albumin Prealbumin Triglycerides Cholesterol LDL Cholesterol Direct HDL Cholesterol Urine pH Urine WBC (Auto) Urine Creatinine Urine Total Protein Fluid Total Protein Vancomycin Trough Rheumatoid Factor Complement C4 Miscellaneous Test Crossmatch 10/09/16 10/09/16 10/09/16 03:45 05:14 07:20 WBC RBC Hgb Hct MCV MCH MCHC RDW Plt Count Lymph % (Auto) [place] % (Auto) Lymph # [place] # Baso # Seg Neutrophils % Seg Neuts % (Manual) Lymphocytes % (Manual) Monocytes % (Manual) Eosinophils % (Manual) Basophils % (Manual) Nucleated RBC % Seg Neutrophils # Seg Neutrophils # Man Lymphocytes # (Manual) Monocytes # (Manual) Eosinophils # (Manual) Basophils # (Manual) PT 19.0 H INR 1.51 H Fibrinogen dRVVT Confirm Interp Factor V Activity POC ABG pH POC ABG pCO2 POC ABG pO2 ABG pO2 ABG HCO3 ABG Base Excess ABG Hemoglobin Oxyhemoglobin Sodium Potassium Chloride Carbon Dioxide BUN Creatinine Glucose POC Glucose 151 H Lactic Acid Calcium Phosphorus Magnesium Direct Bilirubin AST ALT Alkaline Phosphatase Lactate Dehydrogenase Troponin T C-Reactive Protein Total Protein Albumin Prealbumin Triglycerides Cholesterol LDL Cholesterol Direct HDL Cholesterol Urine pH Urine WBC (Auto) Urine Creatinine Urine Total Protein Fluid Total Protein Vancomycin Trough Rheumatoid Factor Complement C4 Miscellaneous Test Crossmatch See Detail 10/09/16 10/09/16 10/09/16 11:46 16:20 16:43 WBC RBC Hgb 7.2 L Hct 22.2 L MCV MCH MCHC RDW Plt Count Lymph % (Auto) [place] % (Auto) Lymph # [place] # Baso # Seg Neutrophils % Seg Neuts % (Manual) Lymphocytes % (Manual) Monocytes % (Manual) Eosinophils % (Manual) Basophils % (Manual) Nucleated RBC % Seg Neutrophils # Seg Neutrophils # Man Lymphocytes # (Manual) Monocytes # (Manual) Eosinophils # (Manual) Basophils # (Manual) PT INR Fibrinogen dRVVT Confirm Interp Factor V Activity POC ABG pH POC ABG pCO2 POC ABG pO2 ABG pO2 ABG HCO3 ABG Base Excess ABG Hemoglobin Oxyhemoglobin Sodium Potassium Chloride Carbon Dioxide BUN Creatinine Glucose POC Glucose 133 H 141 H Lactic Acid Calcium Phosphorus Magnesium Direct Bilirubin AST ALT Alkaline Phosphatase Lactate Dehydrogenase Troponin T C-Reactive Protein Total Protein Albumin Prealbumin Triglycerides Cholesterol LDL Cholesterol Direct HDL Cholesterol Urine pH Urine WBC (Auto) Urine Creatinine Urine Total Protein Fluid Total Protein Vancomycin Trough Rheumatoid Factor Complement C4 Miscellaneous Test Crossmatch 10/10/16 10/10/16 10/10/16 05:00 05:00 11:19 WBC 18.5 H RBC 2.19 L Hgb 6.4 L Hct 19.6 L* MCV MCH MCHC RDW 19.3 H Plt Count 93 L Lymph % (Auto) [place] % (Auto) Lymph # [place] # Baso # Seg Neutrophils % Seg Neuts % (Manual) Lymphocytes % (Manual) 10.0 L Monocytes % (Manual) Eosinophils % (Manual) Basophils % (Manual) Nucleated RBC % 4.0 H Seg Neutrophils # Seg Neutrophils # Man 11.3 H Lymphocytes # (Manual) Monocytes # (Manual) Eosinophils # (Manual) Basophils # (Manual) PT INR Fibrinogen dRVVT Confirm Interp Factor V Activity POC ABG pH POC ABG pCO2 POC ABG pO2 ABG pO2 ABG HCO3 ABG Base Excess ABG Hemoglobin Oxyhemoglobin Sodium Potassium 5.7 H D Chloride Carbon Dioxide 16 L BUN 94 H Creatinine 3.1 H Glucose 131 H POC Glucose 153 H Lactic Acid Calcium 8.2 L Phosphorus 5.10 H Magnesium 2.40 H Direct Bilirubin 0.3 H AST ALT < 5 L Alkaline Phosphatase 319 H Lactate Dehydrogenase Troponin T C-Reactive Protein Total Protein 5.1 L Albumin 1.0 L Prealbumin Triglycerides Cholesterol LDL Cholesterol Direct HDL Cholesterol Urine pH Urine WBC (Auto) Urine Creatinine Urine Total Protein Fluid Total Protein Vancomycin Trough Rheumatoid Factor Complement C4 Miscellaneous Test Crossmatch 10/10/16 10/10/16 10/11/16 17:50 23:30 04:15 WBC RBC Hgb Hct MCV MCH MCHC RDW Plt Count Lymph % (Auto) [place] % (Auto) Lymph # [place] # Baso # Seg Neutrophils % Seg Neuts % (Manual) Lymphocytes % (Manual) Monocytes % (Manual) Eosinophils % (Manual) Basophils % (Manual) Nucleated RBC % Seg Neutrophils # Seg Neutrophils # Man Lymphocytes # (Manual) Monocytes # (Manual) Eosinophils # (Manual) Basophils # (Manual) PT INR Fibrinogen dRVVT Confirm Interp Factor V Activity POC ABG pH POC ABG pCO2 POC ABG pO2 ABG pO2 ABG HCO3 ABG Base Excess ABG Hemoglobin Oxyhemoglobin Sodium Potassium Chloride 96.4 L Carbon Dioxide 21 L BUN 57 H Creatinine 2.1 H Glucose 151 H POC Glucose 146 H 141 H Lactic Acid Calcium 8.3 L Phosphorus Magnesium Direct Bilirubin AST ALT Alkaline Phosphatase Lactate Dehydrogenase Troponin T C-Reactive Protein Total Protein Albumin Prealbumin Triglycerides Cholesterol LDL Cholesterol Direct HDL Cholesterol Urine pH Urine WBC (Auto) Urine Creatinine Urine Total Protein Fluid Total Protein Vancomycin Trough Rheumatoid Factor Complement C4 Miscellaneous Test Crossmatch 10/11/16 10/11/16 10/11/16 04:15 04:15 05:30 WBC 28.3 H RBC 3.12 L Hgb 9.3 L Hct 28.7 L D MCV MCH MCHC RDW 17.7 H Plt Count 128 L Lymph % (Auto) [place] % (Auto) Lymph # [place] # Baso # Seg Neutrophils % Seg Neuts % (Manual) Lymphocytes % (Manual) Monocytes % (Manual) Eosinophils % (Manual) Basophils % (Manual) Nucleated RBC % Seg Neutrophils # Seg Neutrophils # Man Lymphocytes # (Manual) Monocytes # (Manual) Eosinophils # (Manual) Basophils # (Manual) PT INR Fibrinogen dRVVT Confirm Interp Factor V Activity POC ABG pH POC ABG pCO2 POC ABG pO2 ABG pO2 ABG HCO3 ABG Base Excess ABG Hemoglobin Oxyhemoglobin Sodium Potassium Chloride Carbon Dioxide BUN Creatinine Glucose POC Glucose 167 H Lactic Acid Calcium Phosphorus Magnesium Direct Bilirubin AST ALT Alkaline Phosphatase Lactate Dehydrogenase Troponin T C-Reactive Protein 15.80 H Total Protein Albumin Prealbumin Triglycerides Cholesterol LDL Cholesterol Direct HDL Cholesterol Urine pH Urine WBC (Auto) Urine Creatinine Urine Total Protein Fluid Total Protein Vancomycin Trough Rheumatoid Factor Complement C4 Miscellaneous Test Crossmatch 10/11/16 10/11/16 10/11/16 11:40 15:49 23:57 WBC RBC Hgb Hct MCV MCH MCHC RDW Plt Count Lymph % (Auto) [place] % (Auto) Lymph # [place] # Baso # Seg Neutrophils % Seg Neuts % (Manual) Lymphocytes % (Manual) Monocytes % (Manual) Eosinophils % (Manual) Basophils % (Manual) Nucleated RBC % Seg Neutrophils # Seg Neutrophils # Man Lymphocytes # (Manual) Monocytes # (Manual) Eosinophils # (Manual) Basophils # (Manual) PT INR Fibrinogen dRVVT Confirm Interp Factor V Activity POC ABG pH POC ABG pCO2 POC ABG pO2 ABG pO2 ABG HCO3 ABG Base Excess ABG Hemoglobin Oxyhemoglobin Sodium Potassium Chloride Carbon Dioxide BUN Creatinine Glucose POC Glucose 139 H 168 H 161 H Lactic Acid Calcium Phosphorus Magnesium Direct Bilirubin AST ALT Alkaline Phosphatase Lactate Dehydrogenase Troponin T C-Reactive Protein Total Protein Albumin Prealbumin Triglycerides Cholesterol LDL Cholesterol Direct HDL Cholesterol Urine pH Urine WBC (Auto) Urine Creatinine Urine Total Protein Fluid Total Protein Vancomycin Trough Rheumatoid Factor Complement C4 Miscellaneous Test Crossmatch 10/12/16 10/12/16 10/12/16 04:40 04:40 05:44 WBC 22.5 H RBC 2.88 L Hgb 8.8 L Hct 26.8 L MCV MCH MCHC RDW 17.8 H Plt Count Lymph % (Auto) [place] % (Auto) Lymph # [place] # Baso # Seg Neutrophils % Seg Neuts % (Manual) Lymphocytes % (Manual) Monocytes % (Manual) Eosinophils % (Manual) Basophils % (Manual) Nucleated RBC % Seg Neutrophils # Seg Neutrophils # Man Lymphocytes # (Manual) Monocytes # (Manual) Eosinophils # (Manual) Basophils # (Manual) PT INR Fibrinogen dRVVT Confirm Interp Factor V Activity POC ABG pH POC ABG pCO2 POC ABG pO2 ABG pO2 ABG HCO3 ABG Base Excess ABG Hemoglobin Oxyhemoglobin Sodium 134 L Potassium Chloride 93.0 L Carbon Dioxide BUN 74 H Creatinine 2.5 H Glucose 137 H POC Glucose 158 H Lactic Acid Calcium 8.2 L Phosphorus Magnesium Direct Bilirubin AST ALT Alkaline Phosphatase Lactate Dehydrogenase Troponin T C-Reactive Protein Total Protein Albumin Prealbumin Triglycerides Cholesterol LDL Cholesterol Direct HDL Cholesterol Urine pH Urine WBC (Auto) Urine Creatinine Urine Total Protein Fluid Total Protein Vancomycin Trough Rheumatoid Factor Complement C4 Miscellaneous Test Crossmatch 10/12/16 10/12/16 10/12/16 12:27 18:18 23:46 WBC RBC Hgb Hct MCV MCH MCHC RDW Plt Count Lymph % (Auto) [place] % (Auto) Lymph # [place] # Baso # Seg Neutrophils % Seg Neuts % (Manual) Lymphocytes % (Manual) Monocytes % (Manual) Eosinophils % (Manual) Basophils % (Manual) Nucleated RBC % Seg Neutrophils # Seg Neutrophils # Man Lymphocytes # (Manual) Monocytes # (Manual) Eosinophils # (Manual) Basophils # (Manual) PT INR Fibrinogen dRVVT Confirm Interp Factor V Activity POC ABG pH POC ABG pCO2 POC ABG pO2 ABG pO2 ABG HCO3 ABG Base Excess ABG Hemoglobin Oxyhemoglobin Sodium Potassium Chloride Carbon Dioxide BUN Creatinine Glucose POC Glucose 153 H 140 H 150 H Lactic Acid Calcium Phosphorus Magnesium Direct Bilirubin AST ALT Alkaline Phosphatase Lactate Dehydrogenase Troponin T C-Reactive Protein Total Protein Albumin Prealbumin Triglycerides Cholesterol LDL Cholesterol Direct HDL Cholesterol Urine pH Urine WBC (Auto) Urine Creatinine Urine Total Protein Fluid Total Protein Vancomycin Trough Rheumatoid Factor Complement C4 Miscellaneous Test Crossmatch 10/13/16 10/13/16 10/13/16 06:22 09:20 12:29 WBC RBC Hgb Hct MCV MCH MCHC RDW Plt Count Lymph % (Auto) [place] % (Auto) Lymph # [place] # Baso # Seg Neutrophils % Seg Neuts % (Manual) Lymphocytes % (Manual) Monocytes % (Manual) Eosinophils % (Manual) Basophils % (Manual) Nucleated RBC % Seg Neutrophils # Seg Neutrophils # Man Lymphocytes # (Manual) Monocytes # (Manual) Eosinophils # (Manual) Basophils # (Manual) PT INR Fibrinogen dRVVT Confirm Interp Factor V Activity POC ABG pH POC ABG pCO2 POC ABG pO2 ABG pO2 ABG HCO3 ABG Base Excess ABG Hemoglobin Oxyhemoglobin Sodium Potassium Chloride Carbon Dioxide BUN Creatinine Glucose POC Glucose 165 H 193 H Lactic Acid Calcium Phosphorus Magnesium Direct Bilirubin AST ALT Alkaline Phosphatase Lactate Dehydrogenase Troponin T C-Reactive Protein Total Protein Albumin Prealbumin Triglycerides Cholesterol LDL Cholesterol Direct HDL Cholesterol Urine pH Urine WBC (Auto) Urine Creatinine Urine Total Protein Fluid Total Protein Vancomycin Trough Rheumatoid Factor Complement C4 Miscellaneous Test Flexitest 1 H Crossmatch 10/13/16 10/13/16 10/13/16 18:09 Unknown Unknown WBC 23.4 H RBC 2.83 L Hgb 8.7 L Hct 26.1 L MCV MCH MCHC RDW 18.1 H Plt Count Lymph % (Auto) [place] % (Auto) Lymph # [place] # Baso # Seg Neutrophils % Seg Neuts % (Manual) Lymphocytes % (Manual) Monocytes % (Manual) Eosinophils % (Manual) Basophils % (Manual) Nucleated RBC % Seg Neutrophils # Seg Neutrophils # Man Lymphocytes # (Manual) Monocytes # (Manual) Eosinophils # (Manual) Basophils # (Manual) PT INR Fibrinogen dRVVT Confirm Interp Factor V Activity POC ABG pH POC ABG pCO2 POC ABG pO2 ABG pO2 ABG HCO3 ABG Base Excess ABG Hemoglobin Oxyhemoglobin Sodium Potassium Chloride 95.8 L Carbon Dioxide BUN 82 H Creatinine 2.6 H Glucose 152 H POC Glucose 166 H Lactic Acid Calcium Phosphorus Magnesium Direct Bilirubin AST ALT Alkaline Phosphatase Lactate Dehydrogenase Troponin T C-Reactive Protein Total Protein Albumin Prealbumin Triglycerides Cholesterol LDL Cholesterol Direct HDL Cholesterol Urine pH Urine WBC (Auto) Urine Creatinine Urine Total Protein Fluid Total Protein Vancomycin Trough Rheumatoid Factor Complement C4 Miscellaneous Test Crossmatch 10/14/16 10/14/16 10/14/16 05:38 06:35 08:10 WBC 20.7 H RBC 2.81 L Hgb 8.4 L Hct 27.2 L MCV MCH MCHC RDW 19.4 H Plt Count Lymph % (Auto) [place] % (Auto) Lymph # [place] # Baso # Seg Neutrophils % Seg Neuts % (Manual) Lymphocytes % (Manual) Monocytes % (Manual) Eosinophils % (Manual) Basophils % (Manual) Nucleated RBC % Seg Neutrophils # Seg Neutrophils # Man Lymphocytes # (Manual) Monocytes # (Manual) Eosinophils # (Manual) Basophils # (Manual) PT INR Fibrinogen dRVVT Confirm Interp Factor V Activity POC ABG pH POC ABG pCO2 POC ABG pO2 ABG pO2 ABG HCO3 ABG Base Excess ABG Hemoglobin Oxyhemoglobin Sodium Potassium Chloride Carbon Dioxide BUN 58 H Creatinine 1.9 H Glucose 169 H POC Glucose 195 H Lactic Acid Calcium Phosphorus Magnesium Direct Bilirubin AST ALT Alkaline Phosphatase Lactate Dehydrogenase Troponin T C-Reactive Protein Total Protein Albumin Prealbumin Triglycerides Cholesterol LDL Cholesterol Direct HDL Cholesterol Urine pH Urine WBC (Auto) Urine Creatinine Urine Total Protein Fluid Total Protein Vancomycin Trough Rheumatoid Factor Complement C4 Miscellaneous Test Crossmatch 10/14/16 10/14/16 10/14/16 11:44 17:13 23:28 WBC RBC Hgb Hct MCV MCH MCHC RDW Plt Count Lymph % (Auto) [place] % (Auto) Lymph # [place] # Baso # Seg Neutrophils % Seg Neuts % (Manual) Lymphocytes % (Manual) Monocytes % (Manual) Eosinophils % (Manual) Basophils % (Manual) Nucleated RBC % Seg Neutrophils # Seg Neutrophils # Man Lymphocytes # (Manual) Monocytes # (Manual) Eosinophils # (Manual) Basophils # (Manual) PT INR Fibrinogen dRVVT Confirm Interp Factor V Activity POC ABG pH POC ABG pCO2 POC ABG pO2 ABG pO2 ABG HCO3 ABG Base Excess ABG Hemoglobin Oxyhemoglobin Sodium Potassium Chloride Carbon Dioxide BUN Creatinine Glucose POC Glucose 174 H 121 H 151 H Lactic Acid Calcium Phosphorus Magnesium Direct Bilirubin AST ALT Alkaline Phosphatase Lactate Dehydrogenase Troponin T C-Reactive Protein Total Protein Albumin Prealbumin Triglycerides Cholesterol LDL Cholesterol Direct HDL Cholesterol Urine pH Urine WBC (Auto) Urine Creatinine Urine Total Protein Fluid Total Protein Vancomycin Trough Rheumatoid Factor Complement C4 Miscellaneous Test Crossmatch 10/15/16 10/15/16 10/15/16 05:06 12:26 17:48 WBC RBC Hgb Hct MCV MCH MCHC RDW Plt Count Lymph % (Auto) [place] % (Auto) Lymph # [place] # Baso # Seg Neutrophils % Seg Neuts % (Manual) Lymphocytes % (Manual) Monocytes % (Manual) Eosinophils % (Manual) Basophils % (Manual) Nucleated RBC % Seg Neutrophils # Seg Neutrophils # Man Lymphocytes # (Manual) Monocytes # (Manual) Eosinophils # (Manual) Basophils # (Manual) PT INR Fibrinogen dRVVT Confirm Interp Factor V Activity POC ABG pH POC ABG pCO2 POC ABG pO2 ABG pO2 ABG HCO3 ABG Base Excess ABG Hemoglobin Oxyhemoglobin Sodium Potassium Chloride Carbon Dioxide BUN Creatinine Glucose POC Glucose 151 H 149 H 153 H Lactic Acid Calcium Phosphorus Magnesium Direct Bilirubin AST ALT Alkaline Phosphatase Lactate Dehydrogenase Troponin T C-Reactive Protein Total Protein Albumin Prealbumin Triglycerides Cholesterol LDL Cholesterol Direct HDL Cholesterol Urine pH Urine WBC (Auto) Urine Creatinine Urine Total Protein Fluid Total Protein Vancomycin Trough Rheumatoid Factor Complement C4 Miscellaneous Test Crossmatch 10/15/16 10/15/16 10/16/16 Unknown Unknown 00:02 WBC 23.4 H RBC 2.78 L Hgb 8.5 L Hct 25.7 L MCV MCH MCHC RDW 18.7 H Plt Count Lymph % (Auto) [place] % (Auto) Lymph # [place] # Baso # Seg Neutrophils % Seg Neuts % (Manual) Lymphocytes % (Manual) Monocytes % (Manual) Eosinophils % (Manual) Basophils % (Manual) Nucleated RBC % Seg Neutrophils # Seg Neutrophils # Man Lymphocytes # (Manual) Monocytes # (Manual) Eosinophils # (Manual) Basophils # (Manual) PT INR Fibrinogen dRVVT Confirm Interp Factor V Activity POC ABG pH POC ABG pCO2 POC ABG pO2 ABG pO2 ABG HCO3 ABG Base Excess ABG Hemoglobin Oxyhemoglobin Sodium Potassium Chloride Carbon Dioxide BUN 73 H Creatinine 2.3 H Glucose 120 H POC Glucose 137 H Lactic Acid Calcium Phosphorus Magnesium Direct Bilirubin AST ALT Alkaline Phosphatase Lactate Dehydrogenase Troponin T C-Reactive Protein Total Protein Albumin Prealbumin Triglycerides Cholesterol LDL Cholesterol Direct HDL Cholesterol Urine pH Urine WBC (Auto) Urine Creatinine Urine Total Protein Fluid Total Protein Vancomycin Trough Rheumatoid Factor Complement C4 Miscellaneous Test Crossmatch 10/16/16 10/16/16 10/16/16 05:44 06:25 06:25 WBC 22.5 H RBC 2.76 L Hgb 8.3 L Hct 25.2 L MCV MCH MCHC RDW 18.3 H Plt Count Lymph % (Auto) [place] % (Auto) Lymph # [place] # Baso # Seg Neutrophils % Seg Neuts % (Manual) Lymphocytes % (Manual) Monocytes % (Manual) Eosinophils % (Manual) Basophils % (Manual) Nucleated RBC % Seg Neutrophils # Seg Neutrophils # Man Lymphocytes # (Manual) Monocytes # (Manual) Eosinophils # (Manual) Basophils # (Manual) PT INR Fibrinogen dRVVT Confirm Interp Factor V Activity POC ABG pH POC ABG pCO2 POC ABG pO2 ABG pO2 ABG HCO3 ABG Base Excess ABG Hemoglobin Oxyhemoglobin Sodium Potassium Chloride Carbon Dioxide BUN 92 H Creatinine 3.0 H Glucose 138 H POC Glucose 110 H Lactic Acid Calcium Phosphorus Magnesium Direct Bilirubin AST ALT Alkaline Phosphatase Lactate Dehydrogenase Troponin T C-Reactive Protein Total Protein Albumin Prealbumin Triglycerides Cholesterol LDL Cholesterol Direct HDL Cholesterol Urine pH Urine WBC (Auto) Urine Creatinine Urine Total Protein Fluid Total Protein Vancomycin Trough Rheumatoid Factor Complement C4 Miscellaneous Test Crossmatch 10/16/16 10/16/16 10/16/16 11:27 11:48 17:36 WBC RBC Hgb Hct MCV MCH MCHC RDW Plt Count Lymph % (Auto) [place] % (Auto) Lymph # [place] # Baso # Seg Neutrophils % Seg Neuts % (Manual) Lymphocytes % (Manual) Monocytes % (Manual) Eosinophils % (Manual) Basophils % (Manual) Nucleated RBC % Seg Neutrophils # Seg Neutrophils # Man Lymphocytes # (Manual) Monocytes # (Manual) Eosinophils # (Manual) Basophils # (Manual) PT INR Fibrinogen dRVVT Confirm Interp Factor V Activity POC ABG pH 7.582 H POC ABG pCO2 27.4 L POC ABG pO2 110 H ABG pO2 ABG HCO3 ABG Base Excess ABG Hemoglobin Oxyhemoglobin Sodium Potassium Chloride Carbon Dioxide BUN Creatinine Glucose POC Glucose 121 H 133 H Lactic Acid Calcium Phosphorus Magnesium Direct Bilirubin AST ALT Alkaline Phosphatase Lactate Dehydrogenase Troponin T C-Reactive Protein Total Protein Albumin Prealbumin Triglycerides Cholesterol LDL Cholesterol Direct HDL Cholesterol Urine pH Urine WBC (Auto) Urine Creatinine Urine Total Protein Fluid Total Protein Vancomycin Trough Rheumatoid Factor Complement C4 Miscellaneous Test Crossmatch 10/16/16 10/17/16 10/17/16 20:48 04:24 04:24 WBC 21.4 H RBC 2.72 L Hgb 8.0 L Hct 25.2 L MCV MCH MCHC RDW 18.0 H Plt Count Lymph % (Auto) [place] % (Auto) Lymph # [place] # Baso # Seg Neutrophils % Seg Neuts % (Manual) Lymphocytes % (Manual) Monocytes % (Manual) Eosinophils % (Manual) Basophils % (Manual) Nucleated RBC % Seg Neutrophils # Seg Neutrophils # Man Lymphocytes # (Manual) Monocytes # (Manual) Eosinophils # (Manual) Basophils # (Manual) PT INR Fibrinogen dRVVT Confirm Interp Factor V Activity POC ABG pH 7.561 H POC ABG pCO2 24.4 L POC ABG pO2 77 L ABG pO2 ABG HCO3 ABG Base Excess ABG Hemoglobin Oxyhemoglobin Sodium 148 H Potassium Chloride Carbon Dioxide BUN 104 H Creatinine 3.0 H Glucose 149 H POC Glucose Lactic Acid Calcium Phosphorus Magnesium Direct Bilirubin AST ALT Alkaline Phosphatase 138 H Lactate Dehydrogenase Troponin T C-Reactive Protein Total Protein 6.2 L Albumin 1.5 L Prealbumin Triglycerides Cholesterol LDL Cholesterol Direct HDL Cholesterol Urine pH Urine WBC (Auto) Urine Creatinine Urine Total Protein Fluid Total Protein Vancomycin Trough Rheumatoid Factor Complement C4 Miscellaneous Test Crossmatch 10/17/16 10/17/16 10/17/16 06:02 12:17 17:14 WBC RBC Hgb Hct MCV MCH MCHC RDW Plt Count Lymph % (Auto) [place] % (Auto) Lymph # [place] # Baso # Seg Neutrophils % Seg Neuts % (Manual) Lymphocytes % (Manual) Monocytes % (Manual) Eosinophils % (Manual) Basophils % (Manual) Nucleated RBC % Seg Neutrophils # Seg Neutrophils # Man Lymphocytes # (Manual) Monocytes # (Manual) Eosinophils # (Manual) Basophils # (Manual) PT INR Fibrinogen dRVVT Confirm Interp Factor V Activity POC ABG pH POC ABG pCO2 POC ABG pO2 ABG pO2 ABG HCO3 ABG Base Excess ABG Hemoglobin Oxyhemoglobin Sodium Potassium Chloride Carbon Dioxide BUN Creatinine Glucose POC Glucose 170 H 167 H 126 H Lactic Acid Calcium Phosphorus Magnesium Direct Bilirubin AST ALT Alkaline Phosphatase Lactate Dehydrogenase Troponin T C-Reactive Protein Total Protein Albumin Prealbumin Triglycerides Cholesterol LDL Cholesterol Direct HDL Cholesterol Urine pH Urine WBC (Auto) Urine Creatinine Urine Total Protein Fluid Total Protein Vancomycin Trough Rheumatoid Factor Complement C4 Miscellaneous Test Crossmatch 10/17/16 10/18/16 10/18/16 23:17 04:00 04:00 WBC 20.7 H RBC 2.47 L Hgb 7.4 L Hct 22.9 L MCV MCH MCHC RDW 17.5 H Plt Count Lymph % (Auto) [place] % (Auto) Lymph # [place] # Baso # Seg Neutrophils % Seg Neuts % (Manual) Lymphocytes % (Manual) Monocytes % (Manual) Eosinophils % (Manual) Basophils % (Manual) Nucleated RBC % Seg Neutrophils # Seg Neutrophils # Man Lymphocytes # (Manual) Monocytes # (Manual) Eosinophils # (Manual) Basophils # (Manual) PT INR Fibrinogen dRVVT Confirm Interp Factor V Activity POC ABG pH POC ABG pCO2 POC ABG pO2 ABG pO2 ABG HCO3 ABG Base Excess ABG Hemoglobin Oxyhemoglobin Sodium 149 H Potassium Chloride 107.9 H Carbon Dioxide 20 L BUN 117 H Creatinine 3.2 H Glucose 119 H POC Glucose 121 H Lactic Acid Calcium Phosphorus Magnesium Direct Bilirubin AST ALT Alkaline Phosphatase Lactate Dehydrogenase Troponin T C-Reactive Protein Total Protein Albumin Prealbumin Triglycerides Cholesterol LDL Cholesterol Direct HDL Cholesterol Urine pH Urine WBC (Auto) Urine Creatinine Urine Total Protein Fluid Total Protein Vancomycin Trough Rheumatoid Factor Complement C4 Miscellaneous Test Crossmatch 10/18/16 10/18/16 10/18/16 05:23 10:46 17:30 WBC RBC Hgb Hct MCV MCH MCHC RDW Plt Count Lymph % (Auto) [place] % (Auto) Lymph # [place] # Baso # Seg Neutrophils % Seg Neuts % (Manual) Lymphocytes % (Manual) Monocytes % (Manual) Eosinophils % (Manual) Basophils % (Manual) Nucleated RBC % Seg Neutrophils # Seg Neutrophils # Man Lymphocytes # (Manual) Monocytes # (Manual) Eosinophils # (Manual) Basophils # (Manual) PT INR Fibrinogen dRVVT Confirm Interp Factor V Activity POC ABG pH POC ABG pCO2 POC ABG pO2 ABG pO2 ABG HCO3 ABG Base Excess ABG Hemoglobin Oxyhemoglobin Sodium Potassium Chloride Carbon Dioxide BUN Creatinine Glucose POC Glucose 119 H 155 H 124 H Lactic Acid Calcium Phosphorus Magnesium Direct Bilirubin AST ALT Alkaline Phosphatase Lactate Dehydrogenase Troponin T C-Reactive Protein Total Protein Albumin Prealbumin Triglycerides Cholesterol LDL Cholesterol Direct HDL Cholesterol Urine pH Urine WBC (Auto) Urine Creatinine Urine Total Protein Fluid Total Protein Vancomycin Trough Rheumatoid Factor Complement C4 Miscellaneous Test Crossmatch 10/19/16 10/19/16 10/19/16 04:00 04:00 05:25 WBC 17.4 H RBC 2.54 L Hgb 7.7 L Hct 23.6 L MCV MCH MCHC RDW 17.3 H Plt Count Lymph % (Auto) [place] % (Auto) Lymph # [place] # Baso # Seg Neutrophils % Seg Neuts % (Manual) Lymphocytes % (Manual) Monocytes % (Manual) Eosinophils % (Manual) Basophils % (Manual) Nucleated RBC % Seg Neutrophils # Seg Neutrophils # Man Lymphocytes # (Manual) Monocytes # (Manual) Eosinophils # (Manual) Basophils # (Manual) PT INR Fibrinogen dRVVT Confirm Interp Factor V Activity POC ABG pH POC ABG pCO2 POC ABG pO2 ABG pO2 ABG HCO3 ABG Base Excess ABG Hemoglobin Oxyhemoglobin Sodium Potassium Chloride Carbon Dioxide BUN 72 H Creatinine 2.1 H Glucose 116 H POC Glucose 119 H Lactic Acid Calcium Phosphorus Magnesium Direct Bilirubin AST ALT Alkaline Phosphatase Lactate Dehydrogenase Troponin T C-Reactive Protein Total Protein Albumin Prealbumin Triglycerides Cholesterol LDL Cholesterol Direct HDL Cholesterol Urine pH Urine WBC (Auto) Urine Creatinine Urine Total Protein Fluid Total Protein Vancomycin Trough Rheumatoid Factor Complement C4 Miscellaneous Test Crossmatch 10/19/16 10/19/16 10/20/16 11:46 23:59 06:00 WBC RBC Hgb Hct MCV MCH MCHC RDW Plt Count Lymph % (Auto) [place] % (Auto) Lymph # [place] # Baso # Seg Neutrophils % Seg Neuts % (Manual) Lymphocytes % (Manual) Monocytes % (Manual) Eosinophils % (Manual) Basophils % (Manual) Nucleated RBC % Seg Neutrophils # Seg Neutrophils # Man Lymphocytes # (Manual) Monocytes # (Manual) Eosinophils # (Manual) Basophils # (Manual) PT INR Fibrinogen dRVVT Confirm Interp Factor V Activity POC ABG pH POC ABG pCO2 POC ABG pO2 ABG pO2 ABG HCO3 ABG Base Excess ABG Hemoglobin Oxyhemoglobin Sodium Potassium Chloride Carbon Dioxide 17 L BUN 94 H Creatinine 2.7 H Glucose POC Glucose 116 H 117 H Lactic Acid Calcium Phosphorus Magnesium Direct Bilirubin AST ALT Alkaline Phosphatase Lactate Dehydrogenase Troponin T C-Reactive Protein Total Protein Albumin Prealbumin Triglycerides Cholesterol LDL Cholesterol Direct HDL Cholesterol Urine pH Urine WBC (Auto) Urine Creatinine Urine Total Protein Fluid Total Protein Vancomycin Trough Rheumatoid Factor Complement C4 Miscellaneous Test Crossmatch 10/20/16 10/20/16 10/20/16 06:00 11:49 16:00 WBC 19.7 H RBC 2.51 L Hgb 7.7 L Hct 23.5 L MCV MCH MCHC RDW 17.5 H Plt Count Lymph % (Auto) [place] % (Auto) Lymph # [place] # Baso # Seg Neutrophils % Seg Neuts % (Manual) Lymphocytes % (Manual) Monocytes % (Manual) Eosinophils % (Manual) Basophils % (Manual) Nucleated RBC % Seg Neutrophils # Seg Neutrophils # Man Lymphocytes # (Manual) Monocytes # (Manual) Eosinophils # (Manual) Basophils # (Manual) PT INR Fibrinogen dRVVT Confirm Interp Factor V Activity POC ABG pH POC ABG pCO2 POC ABG pO2 ABG pO2 ABG HCO3 ABG Base Excess ABG Hemoglobin Oxyhemoglobin Sodium Potassium Chloride Carbon Dioxide BUN Creatinine Glucose POC Glucose 117 H Lactic Acid Calcium Phosphorus Magnesium Direct Bilirubin AST ALT Alkaline Phosphatase Lactate Dehydrogenase Troponin T C-Reactive Protein Total Protein Albumin Prealbumin Triglycerides Cholesterol LDL Cholesterol Direct HDL Cholesterol Urine pH Urine WBC (Auto) Urine Creatinine Urine Total Protein Fluid Total Protein Vancomycin Trough Rheumatoid Factor Complement C4 Miscellaneous Test Flexitest 1 H Crossmatch 10/20/16 10/20/16 10/21/16 18:36 23:39 04:00 WBC RBC Hgb Hct MCV MCH MCHC RDW Plt Count Lymph % (Auto) [place] % (Auto) Lymph # [place] # Baso # Seg Neutrophils % Seg Neuts % (Manual) Lymphocytes % (Manual) Monocytes % (Manual) Eosinophils % (Manual) Basophils % (Manual) Nucleated RBC % Seg Neutrophils # Seg Neutrophils # Man Lymphocytes # (Manual) Monocytes # (Manual) Eosinophils # (Manual) Basophils # (Manual) PT INR Fibrinogen dRVVT Confirm Interp Factor V Activity POC ABG pH POC ABG pCO2 POC ABG pO2 ABG pO2 ABG HCO3 ABG Base Excess ABG Hemoglobin Oxyhemoglobin Sodium Potassium 5.4 H D Chloride Carbon Dioxide 15 L BUN 110 H Creatinine 3.0 H Glucose POC Glucose 127 H 114 H Lactic Acid Calcium Phosphorus Magnesium Direct Bilirubin AST ALT Alkaline Phosphatase Lactate Dehydrogenase Troponin T C-Reactive Protein Total Protein Albumin Prealbumin Triglycerides Cholesterol LDL Cholesterol Direct HDL Cholesterol Urine pH Urine WBC (Auto) Urine Creatinine Urine Total Protein Fluid Total Protein Vancomycin Trough Rheumatoid Factor Complement C4 Miscellaneous Test Crossmatch 10/21/16 10/21/16 10/22/16 05:54 23:46 05:18 WBC RBC Hgb Hct MCV MCH MCHC RDW Plt Count Lymph % (Auto) [place] % (Auto) Lymph # [place] # Baso # Seg Neutrophils % Seg Neuts % (Manual) Lymphocytes % (Manual) Monocytes % (Manual) Eosinophils % (Manual) Basophils % (Manual) Nucleated RBC % Seg Neutrophils # Seg Neutrophils # Man Lymphocytes # (Manual) Monocytes # (Manual) Eosinophils # (Manual) Basophils # (Manual) PT INR Fibrinogen dRVVT Confirm Interp Factor V Activity POC ABG pH POC ABG pCO2 POC ABG pO2 ABG pO2 ABG HCO3 ABG Base Excess ABG Hemoglobin Oxyhemoglobin Sodium Potassium Chloride Carbon Dioxide BUN Creatinine Glucose POC Glucose 119 H 108 H 109 H Lactic Acid Calcium Phosphorus Magnesium Direct Bilirubin AST ALT Alkaline Phosphatase Lactate Dehydrogenase Troponin T C-Reactive Protein Total Protein Albumin Prealbumin Triglycerides Cholesterol LDL Cholesterol Direct HDL Cholesterol Urine pH Urine WBC (Auto) Urine Creatinine Urine Total Protein Fluid Total Protein Vancomycin Trough Rheumatoid Factor Complement C4 Miscellaneous Test Crossmatch 10/22/16 10/22/16 10/22/16 06:40 06:40 06:40 WBC 14.0 H RBC 2.03 L Hgb 7.0 L Hct 20.5 L MCV 98 H MCH 34 H MCHC 35 H RDW 17.8 H Plt Count Lymph % (Auto) [place] % (Auto) 9.9 H Lymph # [place] # 1.4 H Baso # 0.2 H Seg Neutrophils % 72.0 H Seg Neuts % (Manual) Lymphocytes % (Manual) Monocytes % (Manual) Eosinophils % (Manual) Basophils % (Manual) Nucleated RBC % Seg Neutrophils # 10.0 H Seg Neutrophils # Man Lymphocytes # (Manual) Monocytes # (Manual) Eosinophils # (Manual) Basophils # (Manual) PT INR Fibrinogen dRVVT Confirm Interp Factor V Activity POC ABG pH POC ABG pCO2 POC ABG pO2 ABG pO2 ABG HCO3 ABG Base Excess ABG Hemoglobin Oxyhemoglobin Sodium 130 L D Potassium Chloride 92.4 L Carbon Dioxide 20 L BUN 50 H Creatinine 1.6 H Glucose 589 H* POC Glucose Lactic Acid Calcium 7.8 L D Phosphorus Magnesium 1.60 L Direct Bilirubin AST ALT Alkaline Phosphatase Lactate Dehydrogenase Troponin T C-Reactive Protein Total Protein Albumin Prealbumin Triglycerides Cholesterol LDL Cholesterol Direct HDL Cholesterol Urine pH Urine WBC (Auto) Urine Creatinine Urine Total Protein Fluid Total Protein Vancomycin Trough Rheumatoid Factor Complement C4 Miscellaneous Test Crossmatch 10/22/16 10/22/16 10/22/16 11:39 16:44 23:36 WBC RBC Hgb Hct MCV MCH MCHC RDW Plt Count Lymph % (Auto) [place] % (Auto) Lymph # [place] # Baso # Seg Neutrophils % Seg Neuts % (Manual) Lymphocytes % (Manual) Monocytes % (Manual) Eosinophils % (Manual) Basophils % (Manual) Nucleated RBC % Seg Neutrophils # Seg Neutrophils # Man Lymphocytes # (Manual) Monocytes # (Manual) Eosinophils # (Manual) Basophils # (Manual) PT INR Fibrinogen dRVVT Confirm Interp Factor V Activity POC ABG pH POC ABG pCO2 POC ABG pO2 ABG pO2 ABG HCO3 ABG Base Excess ABG Hemoglobin Oxyhemoglobin Sodium Potassium Chloride Carbon Dioxide BUN Creatinine Glucose POC Glucose 142 H 163 H 123 H Lactic Acid Calcium Phosphorus Magnesium Direct Bilirubin AST ALT Alkaline Phosphatase Lactate Dehydrogenase Troponin T C-Reactive Protein Total Protein Albumin Prealbumin Triglycerides Cholesterol LDL Cholesterol Direct HDL Cholesterol Urine pH Urine WBC (Auto) Urine Creatinine Urine Total Protein Fluid Total Protein Vancomycin Trough Rheumatoid Factor Complement C4 Miscellaneous Test Crossmatch 0910/23/16 10/23/16 04:58 06:00 12:12 WBC RBC Hgb Hct MCV MCH MCHC RDW Plt Count Lymph % (Auto) [place] % (Auto) Lymph # [place] # Baso # Seg Neutrophils % Seg Neuts % (Manual) Lymphocytes % (Manual) Monocytes % (Manual) Eosinophils % (Manual) Basophils % (Manual) Nucleated RBC % Seg Neutrophils # Seg Neutrophils # Man Lymphocytes # (Manual) Monocytes # (Manual) Eosinophils # (Manual) Basophils # (Manual) PT INR Fibrinogen dRVVT Confirm Interp Factor V Activity POC ABG pH POC ABG pCO2 POC ABG pO2 ABG pO2 ABG HCO3 ABG Base Excess ABG Hemoglobin Oxyhemoglobin Sodium 133 L Potassium 3.5 L Chloride 96.1 L Carbon Dioxide 18 L BUN 76 H Creatinine 2.1 H Glucose POC Glucose 133 H 138 H Lactic Acid Calcium 8.3 L Phosphorus Magnesium Direct Bilirubin AST ALT Alkaline Phosphatase Lactate Dehydrogenase Troponin T C-Reactive Protein Total Protein Albumin Prealbumin Triglycerides Cholesterol LDL Cholesterol Direct HDL Cholesterol Urine pH Urine WBC (Auto) Urine Creatinine Urine Total Protein Fluid Total Protein Vancomycin Trough Rheumatoid Factor Complement C4 Miscellaneous Test Crossmatch 10/23/16 10/23/16 10/24/16 16:53 23:37 04:00 WBC RBC Hgb Hct MCV MCH MCHC RDW Plt Count Lymph % (Auto) [place] % (Auto) Lymph # [place] # Baso # Seg Neutrophils % Seg Neuts % (Manual) Lymphocytes % (Manual) Monocytes % (Manual) Eosinophils % (Manual) Basophils % (Manual) Nucleated RBC % Seg Neutrophils # Seg Neutrophils # Man Lymphocytes # (Manual) Monocytes # (Manual) Eosinophils # (Manual) Basophils # (Manual) PT INR Fibrinogen dRVVT Confirm Interp Factor V Activity POC ABG pH POC ABG pCO2 POC ABG pO2 ABG pO2 ABG HCO3 ABG Base Excess ABG Hemoglobin Oxyhemoglobin Sodium 131 L Potassium Chloride 94.5 L Carbon Dioxide 19 L BUN 97 H Creatinine 2.6 H Glucose 110 H POC Glucose 125 H 123 H Lactic Acid Calcium 8.3 L Phosphorus Magnesium Direct Bilirubin AST ALT Alkaline Phosphatase Lactate Dehydrogenase Troponin T C-Reactive Protein Total Protein Albumin Prealbumin Triglycerides Cholesterol LDL Cholesterol Direct HDL Cholesterol Urine pH Urine WBC (Auto) Urine Creatinine Urine Total Protein Fluid Total Protein Vancomycin Trough Rheumatoid Factor Complement C4 Miscellaneous Test Crossmatch 10/24/16 10/24/16 10/24/16 07:49 11:39 17:52 WBC RBC Hgb 6.0 L Hct 19.7 L* MCV MCH MCHC RDW Plt Count Lymph % (Auto) [place] % (Auto) Lymph # [place] # Baso # Seg Neutrophils % Seg Neuts % (Manual) Lymphocytes % (Manual) Monocytes % (Manual) Eosinophils % (Manual) Basophils % (Manual) Nucleated RBC % Seg Neutrophils # Seg Neutrophils # Man Lymphocytes # (Manual) Monocytes # (Manual) Eosinophils # (Manual) Basophils # (Manual) PT INR Fibrinogen dRVVT Confirm Interp Factor V Activity POC ABG pH POC ABG pCO2 POC ABG pO2 ABG pO2 ABG HCO3 ABG Base Excess ABG Hemoglobin Oxyhemoglobin Sodium Potassium Chloride Carbon Dioxide BUN Creatinine Glucose POC Glucose 106 H 158 H Lactic Acid Calcium Phosphorus Magnesium Direct Bilirubin AST ALT Alkaline Phosphatase Lactate Dehydrogenase Troponin T C-Reactive Protein Total Protein Albumin Prealbumin Triglycerides Cholesterol LDL Cholesterol Direct HDL Cholesterol Urine pH Urine WBC (Auto) Urine Creatinine Urine Total Protein Fluid Total Protein Vancomycin Trough Rheumatoid Factor Complement C4 Miscellaneous Test Crossmatch 10/24/16 10/24/16 10/24/16 20:00 22:27 Unknown WBC RBC Hgb 9.4 L D Hct 27.5 L D MCV MCH MCHC RDW Plt Count Lymph % (Auto) [place] % (Auto) Lymph # [place] # Baso # Seg Neutrophils % Seg Neuts % (Manual) Lymphocytes % (Manual) Monocytes % (Manual) Eosinophils % (Manual) Basophils % (Manual) Nucleated RBC % Seg Neutrophils # Seg Neutrophils # Man Lymphocytes # (Manual) Monocytes # (Manual) Eosinophils # (Manual) Basophils # (Manual) PT INR Fibrinogen dRVVT Confirm Interp Factor V Activity POC ABG pH POC ABG pCO2 POC ABG pO2 ABG pO2 ABG HCO3 ABG Base Excess ABG Hemoglobin Oxyhemoglobin Sodium Potassium Chloride Carbon Dioxide BUN Creatinine Glucose POC Glucose 125 H Lactic Acid Calcium Phosphorus Magnesium Direct Bilirubin AST ALT Alkaline Phosphatase Lactate Dehydrogenase Troponin T C-Reactive Protein Total Protein Albumin Prealbumin Triglycerides Cholesterol LDL Cholesterol Direct HDL Cholesterol Urine pH Urine WBC (Auto) Urine Creatinine Urine Total Protein Fluid Total Protein Vancomycin Trough Rheumatoid Factor Complement C4 Miscellaneous Test Crossmatch See Detail 10/25/16 10/25/16 10/25/16 04:00 04:00 04:00 WBC 14.2 H RBC 2.98 L Hgb 9.0 L Hct 26.2 L MCV MCH MCHC RDW 16.6 H Plt Count Lymph % (Auto) [place] % (Auto) 10.7 H Lymph # [place] # 1.5 H Baso # Seg Neutrophils % 73.6 H Seg Neuts % (Manual) Lymphocytes % (Manual) Monocytes % (Manual) Eosinophils % (Manual) Basophils % (Manual) Nucleated RBC % Seg Neutrophils # 10.5 H Seg Neutrophils # Man Lymphocytes # (Manual) Monocytes # (Manual) Eosinophils # (Manual) Basophils # (Manual) PT INR Fibrinogen dRVVT Confirm Interp Factor V Activity POC ABG pH POC ABG pCO2 POC ABG pO2 ABG pO2 ABG HCO3 ABG Base Excess ABG Hemoglobin Oxyhemoglobin Sodium 132 L Potassium Chloride 94.7 L Carbon Dioxide BUN 51 H Creatinine 1.6 H Glucose 130 H POC Glucose Lactic Acid Calcium 8.3 L Phosphorus 1.60 L D Magnesium Direct Bilirubin AST ALT Alkaline Phosphatase Lactate Dehydrogenase Troponin T C-Reactive Protein Total Protein Albumin Prealbumin Triglycerides Cholesterol LDL Cholesterol Direct HDL Cholesterol Urine pH Urine WBC (Auto) Urine Creatinine Urine Total Protein Fluid Total Protein Vancomycin Trough Rheumatoid Factor Complement C4 Miscellaneous Test Crossmatch 10/25/16 10/25/16 10/25/16 04:32 11:48 17:22 WBC RBC Hgb Hct MCV MCH MCHC RDW Plt Count Lymph % (Auto) [place] % (Auto) Lymph # [place] # Baso # Seg Neutrophils % Seg Neuts % (Manual) Lymphocytes % (Manual) Monocytes % (Manual) Eosinophils % (Manual) Basophils % (Manual) Nucleated RBC % Seg Neutrophils # Seg Neutrophils # Man Lymphocytes # (Manual) Monocytes # (Manual) Eosinophils # (Manual) Basophils # (Manual) PT INR Fibrinogen dRVVT Confirm Interp Factor V Activity POC ABG pH POC ABG pCO2 POC ABG pO2 ABG pO2 ABG HCO3 ABG Base Excess ABG Hemoglobin Oxyhemoglobin Sodium Potassium Chloride Carbon Dioxide BUN Creatinine Glucose POC Glucose 124 H 171 H 120 H Lactic Acid Calcium Phosphorus Magnesium Direct Bilirubin AST ALT Alkaline Phosphatase Lactate Dehydrogenase Troponin T C-Reactive Protein Total Protein Albumin Prealbumin Triglycerides Cholesterol LDL Cholesterol Direct HDL Cholesterol Urine pH Urine WBC (Auto) Urine Creatinine Urine Total Protein Fluid Total Protein Vancomycin Trough Rheumatoid Factor Complement C4 Miscellaneous Test Crossmatch 10/26/16 10/26/16 10/26/16 04:54 07:06 07:06 WBC 16.9 H RBC 3.06 L Hgb 9.1 L Hct 26.9 L MCV MCH MCHC RDW 16.9 H Plt Count Lymph % (Auto) [place] % (Auto) Lymph # [place] # Baso # Seg Neutrophils % Seg Neuts % (Manual) 71.0 H Lymphocytes % (Manual) 5.0 L Monocytes % (Manual) 12.0 H Eosinophils % (Manual) Basophils % (Manual) Nucleated RBC % Seg Neutrophils # Seg Neutrophils # Man 12.0 H Lymphocytes # (Manual) 0.8 L Monocytes # (Manual) 2.0 H Eosinophils # (Manual) Basophils # (Manual) PT INR Fibrinogen dRVVT Confirm Interp Factor V Activity POC ABG pH POC ABG pCO2 POC ABG pO2 ABG pO2 ABG HCO3 ABG Base Excess ABG Hemoglobin Oxyhemoglobin Sodium 135 L Potassium Chloride 97.1 L Carbon Dioxide BUN 73 H Creatinine 2.2 H Glucose 117 H POC Glucose 123 H Lactic Acid Calcium Phosphorus 1.70 L Magnesium Direct Bilirubin AST ALT Alkaline Phosphatase Lactate Dehydrogenase Troponin T C-Reactive Protein Total Protein Albumin Prealbumin Triglycerides Cholesterol LDL Cholesterol Direct HDL Cholesterol Urine pH Urine WBC (Auto) Urine Creatinine Urine Total Protein Fluid Total Protein Vancomycin Trough Rheumatoid Factor Complement C4 Miscellaneous Test Crossmatch 10/26/16 10/26/16 10/26/16 12:12 17:29 23:42 WBC RBC Hgb Hct MCV MCH MCHC RDW Plt Count Lymph % (Auto) [place] % (Auto) Lymph # [place] # Baso # Seg Neutrophils % Seg Neuts % (Manual) Lymphocytes % (Manual) Monocytes % (Manual) Eosinophils % (Manual) Basophils % (Manual) Nucleated RBC % Seg Neutrophils # Seg Neutrophils # Man Lymphocytes # (Manual) Monocytes # (Manual) Eosinophils # (Manual) Basophils # (Manual) PT INR Fibrinogen dRVVT Confirm Interp Factor V Activity POC ABG pH POC ABG pCO2 POC ABG pO2 ABG pO2 ABG HCO3 ABG Base Excess ABG Hemoglobin Oxyhemoglobin Sodium Potassium Chloride Carbon Dioxide BUN Creatinine Glucose POC Glucose 126 H 161 H 118 H Lactic Acid Calcium Phosphorus Magnesium Direct Bilirubin AST ALT Alkaline Phosphatase Lactate Dehydrogenase Troponin T C-Reactive Protein Total Protein Albumin Prealbumin Triglycerides Cholesterol LDL Cholesterol Direct HDL Cholesterol Urine pH Urine WBC (Auto) Urine Creatinine Urine Total Protein Fluid Total Protein Vancomycin Trough Rheumatoid Factor Complement C4 Miscellaneous Test Crossmatch 10/27/16 10/27/16 10/27/16 05:03 06:30 06:30 WBC 13.9 H RBC 3.09 L Hgb 9.2 L Hct 27.5 L MCV MCH MCHC RDW 17.0 H Plt Count Lymph % (Auto) [place] % (Auto) Lymph # [place] # Baso # Seg Neutrophils % Seg Neuts % (Manual) 78.0 H Lymphocytes % (Manual) Monocytes % (Manual) Eosinophils % (Manual) Basophils % (Manual) Nucleated RBC % 2.0 H Seg Neutrophils # Seg Neutrophils # Man 10.8 H Lymphocytes # (Manual) Monocytes # (Manual) 1.0 H Eosinophils # (Manual) Basophils # (Manual) PT INR Fibrinogen dRVVT Confirm Interp Factor V Activity POC ABG pH POC ABG pCO2 POC ABG pO2 ABG pO2 ABG HCO3 ABG Base Excess ABG Hemoglobin Oxyhemoglobin Sodium Potassium Chloride Carbon Dioxide BUN 40 H Creatinine 1.5 H Glucose 135 H POC Glucose 107 H Lactic Acid Calcium 8.3 L Phosphorus 1.30 L D Magnesium Direct Bilirubin AST ALT Alkaline Phosphatase Lactate Dehydrogenase Troponin T C-Reactive Protein Total Protein Albumin Prealbumin Triglycerides Cholesterol LDL Cholesterol Direct HDL Cholesterol Urine pH Urine WBC (Auto) Urine Creatinine Urine Total Protein Fluid Total Protein Vancomycin Trough Rheumatoid Factor Complement C4 Miscellaneous Test Crossmatch 10/27/16 10/27/16 10/27/16 13:27 18:07 23:40 WBC RBC Hgb Hct MCV MCH MCHC RDW Plt Count Lymph % (Auto) [place] % (Auto) Lymph # [place] # Baso # Seg Neutrophils % Seg Neuts % (Manual) Lymphocytes % (Manual) Monocytes % (Manual) Eosinophils % (Manual) Basophils % (Manual) Nucleated RBC % Seg Neutrophils # Seg Neutrophils # Man Lymphocytes # (Manual) Monocytes # (Manual) Eosinophils # (Manual) Basophils # (Manual) PT INR Fibrinogen dRVVT Confirm Interp Factor V Activity POC ABG pH POC ABG pCO2 POC ABG pO2 ABG pO2 ABG HCO3 ABG Base Excess ABG Hemoglobin Oxyhemoglobin Sodium Potassium Chloride Carbon Dioxide BUN Creatinine Glucose POC Glucose 117 H 121 H 118 H Lactic Acid Calcium Phosphorus Magnesium Direct Bilirubin AST ALT Alkaline Phosphatase Lactate Dehydrogenase Troponin T C-Reactive Protein Total Protein Albumin Prealbumin Triglycerides Cholesterol LDL Cholesterol Direct HDL Cholesterol Urine pH Urine WBC (Auto) Urine Creatinine Urine Total Protein Fluid Total Protein Vancomycin Trough Rheumatoid Factor Complement C4 Miscellaneous Test Crossmatch 10/28/16 10/28/16 10/28/16 05:48 06:45 06:45 WBC 14.7 H RBC 3.05 L Hgb 9.0 L Hct 26.9 L MCV MCH MCHC RDW 16.8 H Plt Count Lymph % (Auto) 8.2 L [place] % (Auto) 8.4 H Lymph # [place] # 1.2 H Baso # Seg Neutrophils % 81.9 H Seg Neuts % (Manual) Lymphocytes % (Manual) Monocytes % (Manual) Eosinophils % (Manual) Basophils % (Manual) Nucleated RBC % Seg Neutrophils # 12.1 H Seg Neutrophils # Man Lymphocytes # (Manual) Monocytes # (Manual) Eosinophils # (Manual) Basophils # (Manual) PT INR Fibrinogen dRVVT Confirm Interp Factor V Activity POC ABG pH POC ABG pCO2 POC ABG pO2 ABG pO2 ABG HCO3 ABG Base Excess ABG Hemoglobin Oxyhemoglobin Sodium Potassium Chloride Carbon Dioxide BUN 60 H Creatinine 1.9 H Glucose 120 H POC Glucose 114 H Lactic Acid Calcium Phosphorus Magnesium Direct Bilirubin AST ALT Alkaline Phosphatase Lactate Dehydrogenase Troponin T C-Reactive Protein Total Protein Albumin Prealbumin Triglycerides Cholesterol LDL Cholesterol Direct HDL Cholesterol Urine pH Urine WBC (Auto) Urine Creatinine Urine Total Protein Fluid Total Protein Vancomycin Trough Rheumatoid Factor Complement C4 Miscellaneous Test Crossmatch 10/28/16 10/28/16 10/29/16 17:08 23:50 05:10 WBC RBC Hgb Hct MCV MCH MCHC RDW Plt Count Lymph % (Auto) [place] % (Auto) Lymph # [place] # Baso # Seg Neutrophils % Seg Neuts % (Manual) Lymphocytes % (Manual) Monocytes % (Manual) Eosinophils % (Manual) Basophils % (Manual) Nucleated RBC % Seg Neutrophils # Seg Neutrophils # Man Lymphocytes # (Manual) Monocytes # (Manual) Eosinophils # (Manual) Basophils # (Manual) PT INR Fibrinogen dRVVT Confirm Interp Factor V Activity POC ABG pH POC ABG pCO2 POC ABG pO2 ABG pO2 ABG HCO3 ABG Base Excess ABG Hemoglobin Oxyhemoglobin Sodium Potassium Chloride Carbon Dioxide BUN Creatinine Glucose POC Glucose 109 H 110 H 124 H Lactic Acid Calcium Phosphorus Magnesium Direct Bilirubin AST ALT Alkaline Phosphatase Lactate Dehydrogenase Troponin T C-Reactive Protein Total Protein Albumin Prealbumin Triglycerides Cholesterol LDL Cholesterol Direct HDL Cholesterol Urine pH Urine WBC (Auto) Urine Creatinine Urine Total Protein Fluid Total Protein Vancomycin Trough Rheumatoid Factor Complement C4 Miscellaneous Test Crossmatch 10/29/16 10/29/16 10/29/16 07:45 07:45 12:19 WBC 14.7 H RBC 3.15 L Hgb 9.3 L Hct 28.9 L MCV MCH MCHC RDW 17.0 H Plt Count Lymph % (Auto) 11.9 L [place] % (Auto) 8.6 H Lymph # [place] # 1.3 H Baso # Seg Neutrophils % 78.1 H Seg Neuts % (Manual) Lymphocytes % (Manual) Monocytes % (Manual) Eosinophils % (Manual) Basophils % (Manual) Nucleated RBC % Seg Neutrophils # 11.4 H Seg Neutrophils # Man Lymphocytes # (Manual) Monocytes # (Manual) Eosinophils # (Manual) Basophils # (Manual) PT INR Fibrinogen dRVVT Confirm Interp Factor V Activity POC ABG pH POC ABG pCO2 POC ABG pO2 ABG pO2 ABG HCO3 ABG Base Excess ABG Hemoglobin Oxyhemoglobin Sodium Potassium 5.1 H Chloride Carbon Dioxide 19 L BUN 78 H Creatinine 2.2 H Glucose 116 H POC Glucose 118 H Lactic Acid Calcium Phosphorus Magnesium Direct Bilirubin AST ALT Alkaline Phosphatase Lactate Dehydrogenase Troponin T C-Reactive Protein Total Protein Albumin Prealbumin Triglycerides Cholesterol LDL Cholesterol Direct HDL Cholesterol Urine pH Urine WBC (Auto) Urine Creatinine Urine Total Protein Fluid Total Protein Vancomycin Trough Rheumatoid Factor Complement C4 Miscellaneous Test Crossmatch 10/29/16 10/30/16 10/30/16 17:49 01:52 03:28 WBC RBC Hgb Hct MCV MCH MCHC RDW Plt Count Lymph % (Auto) [place] % (Auto) Lymph # [place] # Baso # Seg Neutrophils % Seg Neuts % (Manual) Lymphocytes % (Manual) Monocytes % (Manual) Eosinophils % (Manual) Basophils % (Manual) Nucleated RBC % Seg Neutrophils # Seg Neutrophils # Man Lymphocytes # (Manual) Monocytes # (Manual) Eosinophils # (Manual) Basophils # (Manual) PT INR Fibrinogen dRVVT Confirm Interp Factor V Activity POC ABG pH POC ABG pCO2 POC ABG pO2 ABG pO2 ABG HCO3 ABG Base Excess ABG Hemoglobin Oxyhemoglobin Sodium Potassium 5.4 H Chloride 97.5 L Carbon Dioxide 19 L BUN 90 H Creatinine 2.5 H Glucose POC Glucose 120 H 129 H Lactic Acid Calcium Phosphorus 5.20 H Magnesium Direct Bilirubin AST ALT Alkaline Phosphatase Lactate Dehydrogenase Troponin T C-Reactive Protein Total Protein Albumin Prealbumin Triglycerides Cholesterol LDL Cholesterol Direct HDL Cholesterol Urine pH Urine WBC (Auto) Urine Creatinine Urine Total Protein Fluid Total Protein Vancomycin Trough Rheumatoid Factor Complement C4 Miscellaneous Test Crossmatch 10/30/16 10/30/16 10/30/16 03:28 08:19 08:19 WBC 11.6 H 15.9 H RBC 2.75 L 2.82 L Hgb 7.9 L 8.3 L Hct 24.2 L 25.2 L MCV MCH MCHC RDW 16.7 H 17.2 H Plt Count Lymph % (Auto) [place] % (Auto) 9.8 H Lymph # [place] # 1.1 H Baso # Seg Neutrophils % 74.2 H Seg Neuts % (Manual) Lymphocytes % (Manual) Monocytes % (Manual) Eosinophils % (Manual) Basophils % (Manual) Nucleated RBC % Seg Neutrophils # 8.6 H Seg Neutrophils # Man Lymphocytes # (Manual) Monocytes # (Manual) Eosinophils # (Manual) Basophils # (Manual) PT INR Fibrinogen dRVVT Confirm Interp Factor V Activity POC ABG pH POC ABG pCO2 POC ABG pO2 ABG pO2 ABG HCO3 ABG Base Excess ABG Hemoglobin Oxyhemoglobin Sodium Potassium 5.3 H Chloride 97.4 L Carbon Dioxide 19 L BUN 93 H Creatinine 2.6 H Glucose POC Glucose Lactic Acid Calcium Phosphorus Magnesium Direct Bilirubin AST ALT Alkaline Phosphatase Lactate Dehydrogenase Troponin T C-Reactive Protein Total Protein Albumin Prealbumin Triglycerides Cholesterol LDL Cholesterol Direct HDL Cholesterol Urine pH Urine WBC (Auto) Urine Creatinine Urine Total Protein Fluid Total Protein Vancomycin Trough Rheumatoid Factor Complement C4 Miscellaneous Test Crossmatch 10/30/16 10/30/16 10/31/16 17:11 23:56 00:40 WBC RBC Hgb Hct MCV MCH MCHC RDW Plt Count Lymph % (Auto) [place] % (Auto) Lymph # [place] # Baso # Seg Neutrophils % Seg Neuts % (Manual) Lymphocytes % (Manual) Monocytes % (Manual) Eosinophils % (Manual) Basophils % (Manual) Nucleated RBC % Seg Neutrophils # Seg Neutrophils # Man Lymphocytes # (Manual) Monocytes # (Manual) Eosinophils # (Manual) Basophils # (Manual) PT INR Fibrinogen dRVVT Confirm Interp Factor V Activity POC ABG pH POC ABG pCO2 POC ABG pO2 ABG pO2 ABG HCO3 ABG Base Excess ABG Hemoglobin Oxyhemoglobin Sodium Potassium Chloride Carbon Dioxide BUN Creatinine Glucose POC Glucose 106 H 117 H 120 H Lactic Acid Calcium Phosphorus Magnesium Direct Bilirubin AST ALT Alkaline Phosphatase Lactate Dehydrogenase Troponin T C-Reactive Protein Total Protein Albumin Prealbumin Triglycerides Cholesterol LDL Cholesterol Direct HDL Cholesterol Urine pH Urine WBC (Auto) Urine Creatinine Urine Total Protein Fluid Total Protein Vancomycin Trough Rheumatoid Factor Complement C4 Miscellaneous Test Crossmatch 10/31/16 10/31/16 10/31/16 05:43 07:15 07:15 WBC 12.1 H RBC 2.63 L Hgb 7.7 L Hct 23.3 L MCV MCH MCHC RDW 16.7 H Plt Count Lymph % (Auto) 11.7 L [place] % (Auto) 7.7 H Lymph # [place] # 0.9 H Baso # Seg Neutrophils % 78.0 H Seg Neuts % (Manual) Lymphocytes % (Manual) Monocytes % (Manual) Eosinophils % (Manual) Basophils % (Manual) Nucleated RBC % Seg Neutrophils # 9.4 H Seg Neutrophils # Man Lymphocytes # (Manual) Monocytes # (Manual) Eosinophils # (Manual) Basophils # (Manual) PT INR Fibrinogen dRVVT Confirm Interp Factor V Activity POC ABG pH POC ABG pCO2 POC ABG pO2 ABG pO2 ABG HCO3 ABG Base Excess ABG Hemoglobin Oxyhemoglobin Sodium Potassium Chloride 96.4 L Carbon Dioxide 21 L BUN 99 H Creatinine 2.6 H Glucose 144 H POC Glucose 125 H Lactic Acid Calcium Phosphorus 4.80 H Magnesium Direct Bilirubin AST ALT Alkaline Phosphatase Lactate Dehydrogenase Troponin T C-Reactive Protein Total Protein Albumin Prealbumin Triglycerides Cholesterol LDL Cholesterol Direct HDL Cholesterol Urine pH Urine WBC (Auto) Urine Creatinine Urine Total Protein Fluid Total Protein Vancomycin Trough Rheumatoid Factor Complement C4 Miscellaneous Test Crossmatch 10/31/16 10/31/16 11/01/16 11:46 18:34 00:20 WBC RBC Hgb Hct MCV MCH MCHC RDW Plt Count Lymph % (Auto) [place] % (Auto) Lymph # [place] # Baso # Seg Neutrophils % Seg Neuts % (Manual) Lymphocytes % (Manual) Monocytes % (Manual) Eosinophils % (Manual) Basophils % (Manual) Nucleated RBC % Seg Neutrophils # Seg Neutrophils # Man Lymphocytes # (Manual) Monocytes # (Manual) Eosinophils # (Manual) Basophils # (Manual) PT INR Fibrinogen dRVVT Confirm Interp Factor V Activity POC ABG pH POC ABG pCO2 POC ABG pO2 ABG pO2 ABG HCO3 ABG Base Excess ABG Hemoglobin Oxyhemoglobin Sodium Potassium Chloride Carbon Dioxide BUN Creatinine Glucose POC Glucose 159 H 140 H 132 H Lactic Acid Calcium Phosphorus Magnesium Direct Bilirubin AST ALT Alkaline Phosphatase Lactate Dehydrogenase Troponin T C-Reactive Protein Total Protein Albumin Prealbumin Triglycerides Cholesterol LDL Cholesterol Direct HDL Cholesterol Urine pH Urine WBC (Auto) Urine Creatinine Urine Total Protein Fluid Total Protein Vancomycin Trough Rheumatoid Factor Complement C4 Miscellaneous Test Crossmatch 11/01/16 11/01/16 11/01/16 04:55 04:55 06:11 WBC 11.2 H RBC 2.68 L Hgb 7.5 L Hct 23.7 L MCV MCH MCHC RDW 16.1 H Plt Count Lymph % (Auto) [place] % (Auto) 9.8 H Lymph # [place] # 1.1 H Baso # Seg Neutrophils % 70.8 H Seg Neuts % (Manual) Lymphocytes % (Manual) Monocytes % (Manual) Eosinophils % (Manual) Basophils % (Manual) Nucleated RBC % Seg Neutrophils # 7.9 H Seg Neutrophils # Man Lymphocytes # (Manual) Monocytes # (Manual) Eosinophils # (Manual) Basophils # (Manual) PT INR Fibrinogen dRVVT Confirm Interp Factor V Activity POC ABG pH POC ABG pCO2 POC ABG pO2 ABG pO2 ABG HCO3 ABG Base Excess ABG Hemoglobin Oxyhemoglobin Sodium Potassium 3.3 L D Chloride Carbon Dioxide BUN 61 H Creatinine 1.9 H Glucose 114 H POC Glucose 115 H Lactic Acid Calcium Phosphorus 1.80 L D Magnesium Direct Bilirubin AST ALT Alkaline Phosphatase Lactate Dehydrogenase Troponin T C-Reactive Protein Total Protein Albumin Prealbumin Triglycerides Cholesterol LDL Cholesterol Direct HDL Cholesterol Urine pH Urine WBC (Auto) Urine Creatinine Urine Total Protein Fluid Total Protein Vancomycin Trough Rheumatoid Factor Complement C4 Miscellaneous Test Crossmatch 11/01/16 11/01/16 11/01/16 12:29 18:23 23:58 WBC RBC Hgb Hct MCV MCH MCHC RDW Plt Count Lymph % (Auto) [place] % (Auto) Lymph # [place] # Baso # Seg Neutrophils % Seg Neuts % (Manual) Lymphocytes % (Manual) Monocytes % (Manual) Eosinophils % (Manual) Basophils % (Manual) Nucleated RBC % Seg Neutrophils # Seg Neutrophils # Man Lymphocytes # (Manual) Monocytes # (Manual) Eosinophils # (Manual) Basophils # (Manual) PT INR Fibrinogen dRVVT Confirm Interp Factor V Activity POC ABG pH POC ABG pCO2 POC ABG pO2 ABG pO2 ABG HCO3 ABG Base Excess ABG Hemoglobin Oxyhemoglobin Sodium Potassium Chloride Carbon Dioxide BUN Creatinine Glucose POC Glucose 142 H 143 H 128 H Lactic Acid Calcium Phosphorus Magnesium Direct Bilirubin AST ALT Alkaline Phosphatase Lactate Dehydrogenase Troponin T C-Reactive Protein Total Protein Albumin Prealbumin Triglycerides Cholesterol LDL Cholesterol Direct HDL Cholesterol Urine pH Urine WBC (Auto) Urine Creatinine Urine Total Protein Fluid Total Protein Vancomycin Trough Rheumatoid Factor Complement C4 Miscellaneous Test Crossmatch 11/02/16 11/02/16 11/02/16 04:16 05:29 11:58 WBC RBC Hgb Hct MCV MCH MCHC RDW Plt Count Lymph % (Auto) [place] % (Auto) Lymph # [place] # Baso # Seg Neutrophils % Seg Neuts % (Manual) Lymphocytes % (Manual) Monocytes % (Manual) Eosinophils % (Manual) Basophils % (Manual) Nucleated RBC % Seg Neutrophils # Seg Neutrophils # Man Lymphocytes # (Manual) Monocytes # (Manual) Eosinophils # (Manual) Basophils # (Manual) PT INR Fibrinogen dRVVT Confirm Interp Factor V Activity POC ABG pH POC ABG pCO2 POC ABG pO2 ABG pO2 ABG HCO3 ABG Base Excess ABG Hemoglobin Oxyhemoglobin Sodium Potassium 3.1 L Chloride Carbon Dioxide BUN 73 H Creatinine 2.3 H Glucose 112 H POC Glucose 135 H 149 H Lactic Acid Calcium Phosphorus Magnesium Direct Bilirubin AST ALT Alkaline Phosphatase Lactate Dehydrogenase Troponin T C-Reactive Protein Total Protein Albumin Prealbumin Triglycerides Cholesterol LDL Cholesterol Direct HDL Cholesterol Urine pH Urine WBC (Auto) Urine Creatinine Urine Total Protein Fluid Total Protein Vancomycin Trough Rheumatoid Factor Complement C4 Miscellaneous Test Crossmatch 11/02/16 11/02/16 11/03/16 17:42 22:54 06:00 WBC RBC Hgb Hct MCV MCH MCHC RDW Plt Count Lymph % (Auto) [place] % (Auto) Lymph # [place] # Baso # Seg Neutrophils % Seg Neuts % (Manual) Lymphocytes % (Manual) Monocytes % (Manual) Eosinophils % (Manual) Basophils % (Manual) Nucleated RBC % Seg Neutrophils # Seg Neutrophils # Man Lymphocytes # (Manual) Monocytes # (Manual) Eosinophils # (Manual) Basophils # (Manual) PT INR Fibrinogen dRVVT Confirm Interp Factor V Activity POC ABG pH POC ABG pCO2 POC ABG pO2 ABG pO2 ABG HCO3 ABG Base Excess ABG Hemoglobin Oxyhemoglobin Sodium Potassium Chloride 96.7 L Carbon Dioxide BUN 41 H Creatinine 1.5 H Glucose 145 H POC Glucose 182 H 115 H Lactic Acid Calcium Phosphorus 1.60 L D Magnesium 1.50 L Direct Bilirubin AST ALT Alkaline Phosphatase Lactate Dehydrogenase Troponin T C-Reactive Protein Total Protein Albumin Prealbumin Triglycerides Cholesterol LDL Cholesterol Direct HDL Cholesterol Urine pH Urine WBC (Auto) Urine Creatinine Urine Total Protein Fluid Total Protein Vancomycin Trough Rheumatoid Factor Complement C4 Miscellaneous Test Crossmatch 11/03/16 11/03/16 11/03/16 11:53 17:45 23:37 WBC RBC Hgb Hct MCV MCH MCHC RDW Plt Count Lymph % (Auto) [place] % (Auto) Lymph # [place] # Baso # Seg Neutrophils % Seg Neuts % (Manual) Lymphocytes % (Manual) Monocytes % (Manual) Eosinophils % (Manual) Basophils % (Manual) Nucleated RBC % Seg Neutrophils # Seg Neutrophils # Man Lymphocytes # (Manual) Monocytes # (Manual) Eosinophils # (Manual) Basophils # (Manual) PT INR Fibrinogen dRVVT Confirm Interp Factor V Activity POC ABG pH POC ABG pCO2 POC ABG pO2 ABG pO2 ABG HCO3 ABG Base Excess ABG Hemoglobin Oxyhemoglobin Sodium Potassium Chloride Carbon Dioxide BUN Creatinine Glucose POC Glucose 131 H 134 H 113 H Lactic Acid Calcium Phosphorus Magnesium Direct Bilirubin AST ALT Alkaline Phosphatase Lactate Dehydrogenase Troponin T C-Reactive Protein Total Protein Albumin Prealbumin Triglycerides Cholesterol LDL Cholesterol Direct HDL Cholesterol Urine pH Urine WBC (Auto) Urine Creatinine Urine Total Protein Fluid Total Protein Vancomycin Trough Rheumatoid Factor Complement C4 Miscellaneous Test Crossmatch 11/04/16 11/04/16 11/04/16 05:41 06:00 12:10 WBC RBC Hgb Hct MCV MCH MCHC RDW Plt Count Lymph % (Auto) [place] % (Auto) Lymph # [place] # Baso # Seg Neutrophils % Seg Neuts % (Manual) Lymphocytes % (Manual) Monocytes % (Manual) Eosinophils % (Manual) Basophils % (Manual) Nucleated RBC % Seg Neutrophils # Seg Neutrophils # Man Lymphocytes # (Manual) Monocytes # (Manual) Eosinophils # (Manual) Basophils # (Manual) PT INR Fibrinogen dRVVT Confirm Interp Factor V Activity POC ABG pH POC ABG pCO2 POC ABG pO2 ABG pO2 ABG HCO3 ABG Base Excess ABG Hemoglobin Oxyhemoglobin Sodium Potassium Chloride 96.7 L Carbon Dioxide BUN 52 H Creatinine 1.9 H Glucose 126 H POC Glucose 137 H 191 H Lactic Acid Calcium Phosphorus Magnesium Direct Bilirubin AST ALT Alkaline Phosphatase Lactate Dehydrogenase Troponin T C-Reactive Protein Total Protein Albumin Prealbumin Triglycerides Cholesterol LDL Cholesterol Direct HDL Cholesterol Urine pH Urine WBC (Auto) Urine Creatinine Urine Total Protein Fluid Total Protein Vancomycin Trough Rheumatoid Factor Complement C4 Miscellaneous Test Crossmatch 11/04/16 11/05/16 11/05/16 22:57 03:10 05:10 WBC RBC Hgb Hct MCV MCH MCHC RDW Plt Count Lymph % (Auto) [place] % (Auto) Lymph # [place] # Baso # Seg Neutrophils % Seg Neuts % (Manual) Lymphocytes % (Manual) Monocytes % (Manual) Eosinophils % (Manual) Basophils % (Manual) Nucleated RBC % Seg Neutrophils # Seg Neutrophils # Man Lymphocytes # (Manual) Monocytes # (Manual) Eosinophils # (Manual) Basophils # (Manual) PT INR Fibrinogen dRVVT Confirm Interp Factor V Activity POC ABG pH POC ABG pCO2 POC ABG pO2 ABG pO2 ABG HCO3 ABG Base Excess ABG Hemoglobin Oxyhemoglobin Sodium 136 L Potassium Chloride 97.2 L Carbon Dioxide BUN 32 H Creatinine 1.3 H Glucose 123 H POC Glucose 125 H 108 H Lactic Acid Calcium 7.8 L Phosphorus Magnesium Direct Bilirubin AST ALT Alkaline Phosphatase Lactate Dehydrogenase Troponin T C-Reactive Protein Total Protein Albumin Prealbumin Triglycerides Cholesterol LDL Cholesterol Direct HDL Cholesterol Urine pH Urine WBC (Auto) Urine Creatinine Urine Total Protein Fluid Total Protein Vancomycin Trough Rheumatoid Factor Complement C4 Miscellaneous Test Crossmatch 11/05/16 11/05/16 11/05/16 12:23 13:09 13:25 WBC RBC Hgb Hct MCV MCH MCHC RDW Plt Count Lymph % (Auto) [place] % (Auto) Lymph # [place] # Baso # Seg Neutrophils % Seg Neuts % (Manual) Lymphocytes % (Manual) Monocytes % (Manual) Eosinophils % (Manual) Basophils % (Manual) Nucleated RBC % Seg Neutrophils # Seg Neutrophils # Man Lymphocytes # (Manual) Monocytes # (Manual) Eosinophils # (Manual) Basophils # (Manual) PT INR Fibrinogen dRVVT Confirm Interp Factor V Activity POC ABG pH POC ABG pCO2 POC ABG pO2 ABG pO2 ABG HCO3 ABG Base Excess ABG Hemoglobin Oxyhemoglobin Sodium Potassium Chloride Carbon Dioxide BUN Creatinine Glucose POC Glucose 124 H Lactic Acid Calcium Phosphorus Magnesium Direct Bilirubin AST ALT Alkaline Phosphatase Lactate Dehydrogenase Troponin T C-Reactive Protein 11.40 H Total Protein Albumin Prealbumin Triglycerides Cholesterol LDL Cholesterol Direct HDL Cholesterol Urine pH 9.0 H Urine WBC (Auto) Urine Creatinine Urine Total Protein Fluid Total Protein Vancomycin Trough Rheumatoid Factor Complement C4 Miscellaneous Test Crossmatch 11/05/16 11/05/16 11/05/16 13:25 17:54 23:42 WBC RBC Hgb Hct MCV MCH MCHC RDW Plt Count Lymph % (Auto) [place] % (Auto) Lymph # [place] # Baso # Seg Neutrophils % Seg Neuts % (Manual) Lymphocytes % (Manual) Monocytes % (Manual) Eosinophils % (Manual) Basophils % (Manual) Nucleated RBC % Seg Neutrophils # Seg Neutrophils # Man Lymphocytes # (Manual) Monocytes # (Manual) Eosinophils # (Manual) Basophils # (Manual) PT INR Fibrinogen dRVVT Confirm Interp Factor V Activity POC ABG pH POC ABG pCO2 POC ABG pO2 ABG pO2 ABG HCO3 ABG Base Excess ABG Hemoglobin Oxyhemoglobin Sodium Potassium Chloride Carbon Dioxide BUN Creatinine Glucose POC Glucose 114 H 134 H Lactic Acid Calcium Phosphorus Magnesium Direct Bilirubin AST ALT Alkaline Phosphatase Lactate Dehydrogenase Troponin T C-Reactive Protein Total Protein Albumin Prealbumin Triglycerides Cholesterol LDL Cholesterol Direct HDL Cholesterol Urine pH Urine WBC (Auto) Urine Creatinine Urine Total Protein Fluid Total Protein Vancomycin Trough Rheumatoid Factor Complement C4 Miscellaneous Test Flexitest 1 H Crossmatch 11/06/16 11/06/16 11/06/16 04:56 06:25 06:25 WBC RBC 2.50 L Hgb 7.3 L Hct 22.5 L MCV MCH MCHC RDW 16.9 H Plt Count Lymph % (Auto) [place] % (Auto) 10.5 H Lymph # [place] # 1.1 H Baso # Seg Neutrophils % Seg Neuts % (Manual) Lymphocytes % (Manual) Monocytes % (Manual) Eosinophils % (Manual) Basophils % (Manual) Nucleated RBC % Seg Neutrophils # Seg Neutrophils # Man Lymphocytes # (Manual) Monocytes # (Manual) Eosinophils # (Manual) Basophils # (Manual) PT INR Fibrinogen dRVVT Confirm Interp Factor V Activity POC ABG pH POC ABG pCO2 POC ABG pO2 ABG pO2 ABG HCO3 ABG Base Excess ABG Hemoglobin Oxyhemoglobin Sodium Potassium 5.1 H Chloride 95.9 L Carbon Dioxide BUN 52 H Creatinine 1.8 H Glucose 117 H POC Glucose 120 H Lactic Acid Calcium Phosphorus Magnesium Direct Bilirubin AST 103 H ALT 77 H Alkaline Phosphatase 285 H Lactate Dehydrogenase Troponin T C-Reactive Protein Total Protein 6.2 L Albumin 1.8 L Prealbumin 0.180 L Triglycerides Cholesterol LDL Cholesterol Direct HDL Cholesterol Urine pH Urine WBC (Auto) Urine Creatinine Urine Total Protein Fluid Total Protein Vancomycin Trough Rheumatoid Factor Complement C4 Miscellaneous Test Crossmatch 11/06/16 11/06/16 11/06/16 11:56 17:14 23:52 WBC RBC Hgb Hct MCV MCH MCHC RDW Plt Count Lymph % (Auto) [place] % (Auto) Lymph # [place] # Baso # Seg Neutrophils % Seg Neuts % (Manual) Lymphocytes % (Manual) Monocytes % (Manual) Eosinophils % (Manual) Basophils % (Manual) Nucleated RBC % Seg Neutrophils # Seg Neutrophils # Man Lymphocytes # (Manual) Monocytes # (Manual) Eosinophils # (Manual) Basophils # (Manual) PT INR Fibrinogen dRVVT Confirm Interp Factor V Activity POC ABG pH POC ABG pCO2 POC ABG pO2 ABG pO2 ABG HCO3 ABG Base Excess ABG Hemoglobin Oxyhemoglobin Sodium Potassium Chloride Carbon Dioxide BUN Creatinine Glucose POC Glucose 141 H 125 H 130 H Lactic Acid Calcium Phosphorus Magnesium Direct Bilirubin AST ALT Alkaline Phosphatase Lactate Dehydrogenase Troponin T C-Reactive Protein Total Protein Albumin Prealbumin Triglycerides Cholesterol LDL Cholesterol Direct HDL Cholesterol Urine pH Urine WBC (Auto) Urine Creatinine Urine Total Protein Fluid Total Protein Vancomycin Trough Rheumatoid Factor Complement C4 Miscellaneous Test Crossmatch 11/07/16 11/07/16 11/07/16 06:30 06:30 09:37 WBC RBC 2.18 L Hgb 6.3 L Hct 19.7 L* MCV MCH MCHC RDW 16.8 H Plt Count Lymph % (Auto) [place] % (Auto) 10.0 H Lymph # [place] # 1.0 H Baso # Seg Neutrophils % Seg Neuts % (Manual) Lymphocytes % (Manual) Monocytes % (Manual) Eosinophils % (Manual) Basophils % (Manual) Nucleated RBC % Seg Neutrophils # Seg Neutrophils # Man Lymphocytes # (Manual) Monocytes # (Manual) Eosinophils # (Manual) Basophils # (Manual) PT INR Fibrinogen dRVVT Confirm Interp Factor V Activity POC ABG pH POC ABG pCO2 POC ABG pO2 ABG pO2 ABG HCO3 ABG Base Excess ABG Hemoglobin Oxyhemoglobin Sodium 135 L Potassium Chloride 95.6 L Carbon Dioxide BUN 70 H Creatinine 2.0 H Glucose 126 H POC Glucose Lactic Acid Calcium Phosphorus Magnesium Direct Bilirubin AST ALT Alkaline Phosphatase Lactate Dehydrogenase Troponin T C-Reactive Protein Total Protein Albumin Prealbumin Triglycerides Cholesterol LDL Cholesterol Direct HDL Cholesterol Urine pH Urine WBC (Auto) Urine Creatinine Urine Total Protein Fluid Total Protein Vancomycin Trough Rheumatoid Factor Complement C4 Miscellaneous Test Crossmatch See Detail 11/07/16 11/07/16 11/07/16 12:52 18:51 21:26 WBC RBC Hgb Hct MCV MCH MCHC RDW Plt Count Lymph % (Auto) [place] % (Auto) Lymph # [place] # Baso # Seg Neutrophils % Seg Neuts % (Manual) Lymphocytes % (Manual) Monocytes % (Manual) Eosinophils % (Manual) Basophils % (Manual) Nucleated RBC % Seg Neutrophils # Seg Neutrophils # Man Lymphocytes # (Manual) Monocytes # (Manual) Eosinophils # (Manual) Basophils # (Manual) PT INR Fibrinogen dRVVT Confirm Interp Factor V Activity POC ABG pH 7.523 H POC ABG pCO2 34.6 L POC ABG pO2 53 L ABG pO2 ABG HCO3 ABG Base Excess ABG Hemoglobin Oxyhemoglobin Sodium Potassium Chloride Carbon Dioxide BUN Creatinine Glucose POC Glucose 142 H 155 H Lactic Acid Calcium Phosphorus Magnesium Direct Bilirubin AST ALT Alkaline Phosphatase Lactate Dehydrogenase Troponin T C-Reactive Protein Total Protein Albumin Prealbumin Triglycerides Cholesterol LDL Cholesterol Direct HDL Cholesterol Urine pH Urine WBC (Auto) Urine Creatinine Urine Total Protein Fluid Total Protein Vancomycin Trough Rheumatoid Factor Complement C4 Miscellaneous Test Crossmatch 11/07/16 11/08/16 11/08/16 21:34 13:03 23:37 WBC RBC 2.63 L Hgb 7.7 L Hct 22.7 L MCV MCH MCHC RDW 17.0 H Plt Count Lymph % (Auto) [place] % (Auto) Lymph # [place] # Baso # Seg Neutrophils % Seg Neuts % (Manual) Lymphocytes % (Manual) Monocytes % (Manual) Eosinophils % (Manual) Basophils % (Manual) Nucleated RBC % Seg Neutrophils # Seg Neutrophils # Man Lymphocytes # (Manual) Monocytes # (Manual) Eosinophils # (Manual) Basophils # (Manual) PT INR Fibrinogen dRVVT Confirm Interp Factor V Activity POC ABG pH 7.478 H POC ABG pCO2 34.0 L POC ABG pO2 50 L ABG pO2 ABG HCO3 ABG Base Excess ABG Hemoglobin Oxyhemoglobin Sodium Potassium Chloride Carbon Dioxide BUN Creatinine Glucose POC Glucose 113 H Lactic Acid Calcium Phosphorus Magnesium Direct Bilirubin AST ALT Alkaline Phosphatase Lactate Dehydrogenase Troponin T C-Reactive Protein Total Protein Albumin Prealbumin Triglycerides Cholesterol LDL Cholesterol Direct HDL Cholesterol Urine pH Urine WBC (Auto) Urine Creatinine Urine Total Protein Fluid Total Protein Vancomycin Trough Rheumatoid Factor Complement C4 Miscellaneous Test Crossmatch 11/09/16 11/09/16 11/09/16 04:35 10:15 18:21 WBC RBC 2.68 L Hgb 7.8 L Hct 23.3 L MCV MCH MCHC RDW 17.0 H Plt Count Lymph % (Auto) [place] % (Auto) 12.1 H Lymph # [place] # 1.1 H Baso # Seg Neutrophils % Seg Neuts % (Manual) Lymphocytes % (Manual) Monocytes % (Manual) Eosinophils % (Manual) Basophils % (Manual) Nucleated RBC % Seg Neutrophils # Seg Neutrophils # Man Lymphocytes # (Manual) Monocytes # (Manual) Eosinophils # (Manual) Basophils # (Manual) PT INR Fibrinogen dRVVT Confirm Interp Factor V Activity POC ABG pH POC ABG pCO2 POC ABG pO2 ABG pO2 ABG HCO3 ABG Base Excess ABG Hemoglobin Oxyhemoglobin Sodium Potassium Chloride Carbon Dioxide BUN 51 H Creatinine 1.8 H Glucose POC Glucose 60 L Lactic Acid Calcium 8.3 L Phosphorus Magnesium Direct Bilirubin AST ALT Alkaline Phosphatase Lactate Dehydrogenase Troponin T C-Reactive Protein Total Protein Albumin Prealbumin Triglycerides Cholesterol LDL Cholesterol Direct HDL Cholesterol Urine pH Urine WBC (Auto) Urine Creatinine Urine Total Protein Fluid Total Protein Vancomycin Trough Rheumatoid Factor Complement C4 Miscellaneous Test Crossmatch 11/09/16 11/10/16 11/10/16 18:55 07:00 11:51 WBC RBC Hgb Hct MCV MCH MCHC RDW Plt Count Lymph % (Auto) [place] % (Auto) Lymph # [place] # Baso # Seg Neutrophils % Seg Neuts % (Manual) Lymphocytes % (Manual) Monocytes % (Manual) Eosinophils % (Manual) Basophils % (Manual) Nucleated RBC % Seg Neutrophils # Seg Neutrophils # Man Lymphocytes # (Manual) Monocytes # (Manual) Eosinophils # (Manual) Basophils # (Manual) PT INR Fibrinogen dRVVT Confirm Interp Factor V Activity POC ABG pH POC ABG pCO2 POC ABG pO2 ABG pO2 ABG HCO3 ABG Base Excess ABG Hemoglobin Oxyhemoglobin Sodium Potassium 3.0 L D Chloride 97.4 L Carbon Dioxide BUN 28 H Creatinine 1.3 H Glucose POC Glucose 68 L 120 H Lactic Acid Calcium 7.8 L Phosphorus Magnesium Direct Bilirubin AST ALT Alkaline Phosphatase Lactate Dehydrogenase Troponin T C-Reactive Protein Total Protein Albumin Prealbumin Triglycerides Cholesterol LDL Cholesterol Direct HDL Cholesterol Urine pH Urine WBC (Auto) Urine Creatinine Urine Total Protein Fluid Total Protein Vancomycin Trough Rheumatoid Factor Complement C4 Miscellaneous Test Crossmatch 11/10/16 11/11/16 11/11/16 14:20 06:59 06:59 WBC RBC 2.81 L Hgb 8.1 L Hct 24.4 L MCV MCH MCHC RDW 16.4 H Plt Count Lymph % (Auto) [place] % (Auto) 10.8 H Lymph # [place] # 1.0 H Baso # Seg Neutrophils % Seg Neuts % (Manual) Lymphocytes % (Manual) Monocytes % (Manual) Eosinophils % (Manual) Basophils % (Manual) Nucleated RBC % Seg Neutrophils # Seg Neutrophils # Man Lymphocytes # (Manual) Monocytes # (Manual) Eosinophils # (Manual) Basophils # (Manual) PT INR Fibrinogen dRVVT Confirm Interp Factor V Activity POC ABG pH POC ABG pCO2 POC ABG pO2 ABG pO2 ABG HCO3 ABG Base Excess ABG Hemoglobin Oxyhemoglobin Sodium Potassium Chloride Carbon Dioxide BUN Creatinine Glucose POC Glucose Lactic Acid Calcium Phosphorus Magnesium Direct Bilirubin AST ALT Alkaline Phosphatase Lactate Dehydrogenase 196 H Troponin T C-Reactive Protein Total Protein 6.1 L Albumin Prealbumin Triglycerides Cholesterol LDL Cholesterol Direct HDL Cholesterol Urine pH Urine WBC (Auto) Urine Creatinine Urine Total Protein Fluid Total Protein < 3.0 L Vancomycin Trough Rheumatoid Factor Complement C4 Miscellaneous Test Crossmatch 11/11/16 11/11/16 11/12/16 06:59 09:50 04:00 WBC RBC Hgb Hct MCV MCH MCHC RDW Plt Count Lymph % (Auto) [place] % (Auto) Lymph # [place] # Baso # Seg Neutrophils % Seg Neuts % (Manual) Lymphocytes % (Manual) Monocytes % (Manual) Eosinophils % (Manual) Basophils % (Manual) Nucleated RBC % Seg Neutrophils # Seg Neutrophils # Man Lymphocytes # (Manual) Monocytes # (Manual) Eosinophils # (Manual) Basophils # (Manual) PT INR 1.18 H Fibrinogen dRVVT Confirm Interp Factor V Activity POC ABG pH POC ABG pCO2 POC ABG pO2 ABG pO2 ABG HCO3 ABG Base Excess ABG Hemoglobin Oxyhemoglobin Sodium 136 L 133 L Potassium Chloride 96.1 L 94.8 L Carbon Dioxide 21 L BUN 37 H 42 H Creatinine 1.8 H 2.0 H Glucose POC Glucose Lactic Acid Calcium Phosphorus Magnesium Direct Bilirubin AST ALT Alkaline Phosphatase Lactate Dehydrogenase Troponin T C-Reactive Protein Total Protein Albumin Prealbumin Triglycerides Cholesterol LDL Cholesterol Direct HDL Cholesterol Urine pH Urine WBC (Auto) Urine Creatinine Urine Total Protein Fluid Total Protein Vancomycin Trough Rheumatoid Factor Complement C4 Miscellaneous Test Crossmatch 11/12/16 11/12/16 11/13/16 04:00 23:55 05:53 WBC RBC Hgb 8.9 L Hct 27.2 L MCV MCH MCHC RDW Plt Count Lymph % (Auto) [place] % (Auto) Lymph # [place] # Baso # Seg Neutrophils % Seg Neuts % (Manual) Lymphocytes % (Manual) Monocytes % (Manual) Eosinophils % (Manual) Basophils % (Manual) Nucleated RBC % Seg Neutrophils # Seg Neutrophils # Man Lymphocytes # (Manual) Monocytes # (Manual) Eosinophils # (Manual) Basophils # (Manual) PT INR Fibrinogen dRVVT Confirm Interp Factor V Activity POC ABG pH POC ABG pCO2 POC ABG pO2 ABG pO2 ABG HCO3 ABG Base Excess ABG Hemoglobin Oxyhemoglobin Sodium Potassium Chloride Carbon Dioxide BUN Creatinine Glucose POC Glucose 132 H 120 H Lactic Acid Calcium Phosphorus Magnesium Direct Bilirubin AST ALT Alkaline Phosphatase Lactate Dehydrogenase Troponin T C-Reactive Protein Total Protein Albumin Prealbumin Triglycerides Cholesterol LDL Cholesterol Direct HDL Cholesterol Urine pH Urine WBC (Auto) Urine Creatinine Urine Total Protein Fluid Total Protein Vancomycin Trough Rheumatoid Factor Complement C4 Miscellaneous Test Crossmatch 11/13/16 11/13/16 11/13/16 11:43 17:09 23:41 WBC RBC Hgb Hct MCV MCH MCHC RDW Plt Count Lymph % (Auto) [place] % (Auto) Lymph # [place] # [place] # Seg Neutrophils % Seg Neuts % (Manual) Lymphocytes % (Manual) Monocytes % (Manual) Eosinophils % (Manual) Basophils % (Manual) Nucleated RBC % Seg Neutrophils # Seg Neutrophils # Man Lymphocytes # (Manual) Monocytes # (Manual) Eosinophils # (Manual) Basophils # (Manual) PT INR Fibrinogen dRVVT Confirm Interp Factor V Activity POC ABG pH POC ABG pCO2 POC ABG pO2 ABG pO2 ABG HCO3 ABG Base Excess ABG Hemoglobin Oxyhemoglobin Sodium Potassium Chloride Carbon Dioxide BUN Creatinine Glucose POC Glucose 114 H 113 H 108 H Lactic Acid Calcium Phosphorus Magnesium Direct Bilirubin AST ALT Alkaline Phosphatase Lactate Dehydrogenase Troponin T C-Reactive Protein Total Protein Albumin Prealbumin Triglycerides Cholesterol LDL Cholesterol Direct HDL Cholesterol Urine pH Urine WBC (Auto) Urine Creatinine Urine Total Protein Fluid Total Protein Vancomycin Trough Rheumatoid Factor Complement C4 Miscellaneous Test Crossmatch 11/13/16 11/15/16 11/15/16 Unknown 00:37 03:30 WBC 11.2 H RBC 2.72 L Hgb 7.6 L Hct 23.4 L MCV MCH MCHC RDW 16.5 H Plt Count Lymph % (Auto) [place] % (Auto) Lymph # [place] # Baso # Seg Neutrophils % Seg Neuts % (Manual) Lymphocytes % (Manual) Monocytes % (Manual) Eosinophils % (Manual) Basophils % (Manual) Nucleated RBC % Seg Neutrophils # Seg Neutrophils # Man Lymphocytes # (Manual) Monocytes # (Manual) Eosinophils # (Manual) Basophils # (Manual) PT INR Fibrinogen dRVVT Confirm Interp Factor V Activity POC ABG pH POC ABG pCO2 POC ABG pO2 ABG pO2 ABG HCO3 ABG Base Excess ABG Hemoglobin Oxyhemoglobin Sodium 135 L Potassium Chloride 95.2 L Carbon Dioxide BUN 52 H Creatinine 2.2 H Glucose POC Glucose 108 H Lactic Acid Calcium Phosphorus Magnesium Direct Bilirubin AST ALT Alkaline Phosphatase Lactate Dehydrogenase Troponin T C-Reactive Protein Total Protein Albumin Prealbumin Triglycerides Cholesterol LDL Cholesterol Direct HDL Cholesterol Urine pH Urine WBC (Auto) Urine Creatinine Urine Total Protein Fluid Total Protein Vancomycin Trough Rheumatoid Factor Complement C4 Miscellaneous Test Crossmatch 11/15/16 11/15/16 11/15/16 03:30 05:04 11:50 WBC RBC Hgb Hct MCV MCH MCHC RDW Plt Count Lymph % (Auto) [place] % (Auto) Lymph # [place] # Baso # Seg Neutrophils % Seg Neuts % (Manual) Lymphocytes % (Manual) Monocytes % (Manual) Eosinophils % (Manual) Basophils % (Manual) Nucleated RBC % Seg Neutrophils # Seg Neutrophils # Man Lymphocytes # (Manual) Monocytes # (Manual) Eosinophils # (Manual) Basophils # (Manual) PT INR Fibrinogen dRVVT Confirm Interp Factor V Activity POC ABG pH POC ABG pCO2 POC ABG pO2 ABG pO2 ABG HCO3 ABG Base Excess ABG Hemoglobin Oxyhemoglobin Sodium Potassium 3.4 L Chloride Carbon Dioxide BUN 25 H Creatinine 1.5 H Glucose 103 H POC Glucose 121 H 144 H Lactic Acid Calcium Phosphorus Magnesium Direct Bilirubin AST ALT Alkaline Phosphatase Lactate Dehydrogenase Troponin T C-Reactive Protein Total Protein Albumin Prealbumin Triglycerides Cholesterol LDL Cholesterol Direct HDL Cholesterol Urine pH Urine WBC (Auto) Urine Creatinine Urine Total Protein Fluid Total Protein Vancomycin Trough Rheumatoid Factor Complement C4 Miscellaneous Test Crossmatch 11/15/16 11/15/16 11/16/16 21:28 23:20 11:44 WBC RBC Hgb Hct MCV MCH MCHC RDW Plt Count Lymph % (Auto) [place] % (Auto) Lymph # [place] # Baso # Seg Neutrophils % Seg Neuts % (Manual) Lymphocytes % (Manual) Monocytes % (Manual) Eosinophils % (Manual) Basophils % (Manual) Nucleated RBC % Seg Neutrophils # Seg Neutrophils # Man Lymphocytes # (Manual) Monocytes # (Manual) Eosinophils # (Manual) Basophils # (Manual) PT INR Fibrinogen dRVVT Confirm Interp Factor V Activity POC ABG pH 7.462 H POC ABG pCO2 POC ABG pO2 71 L ABG pO2 ABG HCO3 ABG Base Excess ABG Hemoglobin Oxyhemoglobin Sodium Potassium Chloride Carbon Dioxide BUN Creatinine Glucose POC Glucose 116 H 133 H Lactic Acid Calcium Phosphorus Magnesium Direct Bilirubin AST ALT Alkaline Phosphatase Lactate Dehydrogenase Troponin T C-Reactive Protein Total Protein Albumin Prealbumin Triglycerides Cholesterol LDL Cholesterol Direct HDL Cholesterol Urine pH Urine WBC (Auto) Urine Creatinine Urine Total Protein Fluid Total Protein Vancomycin Trough Rheumatoid Factor Complement C4 Miscellaneous Test Crossmatch 11/16/16 11/16/16 11/16/16 12:20 17:05 23:35 WBC 11.7 H RBC 2.73 L Hgb 7.6 L Hct 23.7 L MCV MCH MCHC RDW 16.6 H Plt Count Lymph % (Auto) [place] % (Auto) Lymph # [place] # Baso # Seg Neutrophils % Seg Neuts % (Manual) Lymphocytes % (Manual) Monocytes % (Manual) Eosinophils % (Manual) Basophils % (Manual) Nucleated RBC % Seg Neutrophils # Seg Neutrophils # Man Lymphocytes # (Manual) Monocytes # (Manual) Eosinophils # (Manual) Basophils # (Manual) PT INR Fibrinogen dRVVT Confirm Interp Factor V Activity POC ABG pH POC ABG pCO2 POC ABG pO2 ABG pO2 ABG HCO3 ABG Base Excess ABG Hemoglobin Oxyhemoglobin Sodium Potassium Chloride Carbon Dioxide BUN Creatinine Glucose POC Glucose 154 H 125 H Lactic Acid Calcium Phosphorus Magnesium Direct Bilirubin AST ALT Alkaline Phosphatase Lactate Dehydrogenase Troponin T C-Reactive Protein Total Protein Albumin Prealbumin Triglycerides Cholesterol LDL Cholesterol Direct HDL Cholesterol Urine pH Urine WBC (Auto) Urine Creatinine Urine Total Protein Fluid Total Protein Vancomycin Trough Rheumatoid Factor Complement C4 Miscellaneous Test Crossmatch 11/17/16 11/17/16 11/17/16 03:20 03:20 03:20 WBC RBC 2.55 L Hgb 7.3 L Hct 21.9 L MCV MCH MCHC RDW 16.6 H Plt Count Lymph % (Auto) [place] % (Auto) 11.5 H Lymph # [place] # 1.1 H Baso # Seg Neutrophils % Seg Neuts % (Manual) Lymphocytes % (Manual) Monocytes % (Manual) Eosinophils % (Manual) Basophils % (Manual) Nucleated RBC % Seg Neutrophils # Seg Neutrophils # Man Lymphocytes # (Manual) Monocytes # (Manual) Eosinophils # (Manual) Basophils # (Manual) PT 16.8 H INR 1.37 H Fibrinogen dRVVT Confirm Interp Factor V Activity POC ABG pH POC ABG pCO2 POC ABG pO2 ABG pO2 ABG HCO3 ABG Base Excess ABG Hemoglobin Oxyhemoglobin Sodium Potassium 3.5 L Chloride Carbon Dioxide BUN 21 H Creatinine Glucose POC Glucose Lactic Acid Calcium 7.9 L Phosphorus Magnesium Direct Bilirubin AST ALT Alkaline Phosphatase Lactate Dehydrogenase Troponin T C-Reactive Protein Total Protein Albumin Prealbumin Triglycerides Cholesterol LDL Cholesterol Direct HDL Cholesterol Urine pH Urine WBC (Auto) Urine Creatinine Urine Total Protein Fluid Total Protein Vancomycin Trough Rheumatoid Factor Complement C4 Miscellaneous Test Crossmatch 11/17/16 11/17/16 11/17/16 06:34 11:21 21:22 WBC RBC Hgb Hct MCV MCH MCHC RDW Plt Count Lymph % (Auto) [place] % (Auto) Lymph # [place] # Baso # Seg Neutrophils % Seg Neuts % (Manual) Lymphocytes % (Manual) Monocytes % (Manual) Eosinophils % (Manual) Basophils % (Manual) Nucleated RBC % Seg Neutrophils # Seg Neutrophils # Man Lymphocytes # (Manual) Monocytes # (Manual) Eosinophils # (Manual) Basophils # (Manual) PT INR Fibrinogen dRVVT Confirm Interp Factor V Activity POC ABG pH 7.467 H POC ABG pCO2 POC ABG pO2 73 L ABG pO2 ABG HCO3 ABG Base Excess ABG Hemoglobin Oxyhemoglobin Sodium Potassium Chloride Carbon Dioxide BUN Creatinine Glucose POC Glucose 121 H 119 H Lactic Acid Calcium Phosphorus Magnesium Direct Bilirubin AST ALT Alkaline Phosphatase Lactate Dehydrogenase Troponin T C-Reactive Protein Total Protein Albumin Prealbumin Triglycerides Cholesterol LDL Cholesterol Direct HDL Cholesterol Urine pH Urine WBC (Auto) Urine Creatinine Urine Total Protein Fluid Total Protein Vancomycin Trough Rheumatoid Factor Complement C4 Miscellaneous Test Crossmatch 11/18/16 11/18/16 11/19/16 12:16 17:19 00:00 WBC RBC Hgb Hct MCV MCH MCHC RDW Plt Count Lymph % (Auto) [place] % (Auto) Lymph # [place] # Baso # Seg Neutrophils % Seg Neuts % (Manual) Lymphocytes % (Manual) Monocytes % (Manual) Eosinophils % (Manual) Basophils % (Manual) Nucleated RBC % Seg Neutrophils # Seg Neutrophils # Man Lymphocytes # (Manual) Monocytes # (Manual) Eosinophils # (Manual) Basophils # (Manual) PT INR Fibrinogen dRVVT Confirm Interp Factor V Activity POC ABG pH POC ABG pCO2 POC ABG pO2 ABG pO2 ABG HCO3 ABG Base Excess ABG Hemoglobin Oxyhemoglobin Sodium Potassium Chloride Carbon Dioxide BUN Creatinine Glucose POC Glucose 124 H 162 H 139 H Lactic Acid Calcium Phosphorus Magnesium Direct Bilirubin AST ALT Alkaline Phosphatase Lactate Dehydrogenase Troponin T C-Reactive Protein Total Protein Albumin Prealbumin Triglycerides Cholesterol LDL Cholesterol Direct HDL Cholesterol Urine pH Urine WBC (Auto) Urine Creatinine Urine Total Protein Fluid Total Protein Vancomycin Trough Rheumatoid Factor Complement C4 Miscellaneous Test Crossmatch 11/19/16 11/19/16 11/20/16 05:00 12:43 00:40 WBC RBC Hgb Hct MCV MCH MCHC RDW Plt Count Lymph % (Auto) [place] % (Auto) Lymph # [place] # Baso # Seg Neutrophils % Seg Neuts % (Manual) Lymphocytes % (Manual) Monocytes % (Manual) Eosinophils % (Manual) Basophils % (Manual) Nucleated RBC % Seg Neutrophils # Seg Neutrophils # Man Lymphocytes # (Manual) Monocytes # (Manual) Eosinophils # (Manual) Basophils # (Manual) PT INR Fibrinogen dRVVT Confirm Interp Factor V Activity POC ABG pH POC ABG pCO2 POC ABG pO2 ABG pO2 ABG HCO3 ABG Base Excess ABG Hemoglobin Oxyhemoglobin Sodium Potassium Chloride Carbon Dioxide BUN Creatinine Glucose POC Glucose 110 H 125 H 136 H Lactic Acid Calcium Phosphorus Magnesium Direct Bilirubin AST ALT Alkaline Phosphatase Lactate Dehydrogenase Troponin T C-Reactive Protein Total Protein Albumin Prealbumin Triglycerides Cholesterol LDL Cholesterol Direct HDL Cholesterol Urine pH Urine WBC (Auto) Urine Creatinine Urine Total Protein Fluid Total Protein Vancomycin Trough Rheumatoid Factor Complement C4 Miscellaneous Test Crossmatch 11/20/16 11/20/16 11/20/16 05:00 05:00 05:51 WBC 13.1 H RBC 2.74 L Hgb 7.7 L Hct 23.6 L MCV MCH MCHC RDW 16.9 H Plt Count Lymph % (Auto) [place] % (Auto) 10.8 H Lymph # [place] # 1.4 H Baso # Seg Neutrophils % Seg Neuts % (Manual) Lymphocytes % (Manual) Monocytes % (Manual) Eosinophils % (Manual) Basophils % (Manual) Nucleated RBC % Seg Neutrophils # 7.9 H Seg Neutrophils # Man Lymphocytes # (Manual) Monocytes # (Manual) Eosinophils # (Manual) Basophils # (Manual) PT INR Fibrinogen dRVVT Confirm Interp Factor V Activity POC ABG pH POC ABG pCO2 POC ABG pO2 ABG pO2 ABG HCO3 ABG Base Excess ABG Hemoglobin Oxyhemoglobin Sodium Potassium Chloride Carbon Dioxide BUN 31 H Creatinine 1.8 H Glucose 129 H POC Glucose 133 H Lactic Acid Calcium Phosphorus Magnesium Direct Bilirubin AST ALT Alkaline Phosphatase Lactate Dehydrogenase Troponin T C-Reactive Protein Total Protein Albumin Prealbumin Triglycerides Cholesterol LDL Cholesterol Direct HDL Cholesterol Urine pH Urine WBC (Auto) Urine Creatinine Urine Total Protein Fluid Total Protein Vancomycin Trough Rheumatoid Factor Complement C4 Miscellaneous Test Crossmatch 11/20/16 11/20/16 11/21/16 12:40 18:10 01:20 WBC RBC Hgb Hct MCV MCH MCHC RDW Plt Count Lymph % (Auto) [place] % (Auto) Lymph # [place] # Baso # Seg Neutrophils % Seg Neuts % (Manual) Lymphocytes % (Manual) Monocytes % (Manual) Eosinophils % (Manual) Basophils % (Manual) Nucleated RBC % Seg Neutrophils # Seg Neutrophils # Man Lymphocytes # (Manual) Monocytes # (Manual) Eosinophils # (Manual) Basophils # (Manual) PT INR Fibrinogen dRVVT Confirm Interp Factor V Activity POC ABG pH POC ABG pCO2 POC ABG pO2 ABG pO2 ABG HCO3 ABG Base Excess ABG Hemoglobin Oxyhemoglobin Sodium Potassium Chloride Carbon Dioxide BUN Creatinine Glucose POC Glucose 134 H 138 H 136 H Lactic Acid Calcium Phosphorus Magnesium Direct Bilirubin AST ALT Alkaline Phosphatase Lactate Dehydrogenase Troponin T C-Reactive Protein Total Protein Albumin Prealbumin Triglycerides Cholesterol LDL Cholesterol Direct HDL Cholesterol Urine pH Urine WBC (Auto) Urine Creatinine Urine Total Protein Fluid Total Protein Vancomycin Trough Rheumatoid Factor Complement C4 Miscellaneous Test Crossmatch 11/21/16 11/21/16 11/21/16 07:04 07:45 07:45 WBC 22.0 H RBC 2.91 L Hgb 8.2 L Hct 25.4 L MCV MCH MCHC RDW 17.1 H Plt Count Lymph % (Auto) [place] % (Auto) Lymph # [place] # Baso # Seg Neutrophils % Seg Neuts % (Manual) Lymphocytes % (Manual) 8.0 L Monocytes % (Manual) Eosinophils % (Manual) Basophils % (Manual) Nucleated RBC % Seg Neutrophils # Seg Neutrophils # Man 14.7 H Lymphocytes # (Manual) Monocytes # (Manual) 1.1 H Eosinophils # (Manual) Basophils # (Manual) PT INR Fibrinogen dRVVT Confirm Interp Factor V Activity POC ABG pH POC ABG pCO2 POC ABG pO2 ABG pO2 ABG HCO3 ABG Base Excess ABG Hemoglobin Oxyhemoglobin Sodium Potassium Chloride Carbon Dioxide BUN 42 H Creatinine 2.0 H Glucose POC Glucose 108 H Lactic Acid Calcium Phosphorus Magnesium Direct Bilirubin AST ALT Alkaline Phosphatase Lactate Dehydrogenase Troponin T C-Reactive Protein Total Protein Albumin Prealbumin Triglycerides Cholesterol LDL Cholesterol Direct HDL Cholesterol Urine pH Urine WBC (Auto) Urine Creatinine Urine Total Protein Fluid Total Protein Vancomycin Trough Rheumatoid Factor Complement C4 Miscellaneous Test Crossmatch 11/21/16 11/21/16 11/21/16 08:38 10:09 11:20 WBC RBC Hgb Hct MCV MCH MCHC RDW Plt Count Lymph % (Auto) [place] % (Auto) Lymph # [place] # Baso # Seg Neutrophils % Seg Neuts % (Manual) Lymphocytes % (Manual) Monocytes % (Manual) Eosinophils % (Manual) Basophils % (Manual) Nucleated RBC % Seg Neutrophils # Seg Neutrophils # Man Lymphocytes # (Manual) Monocytes # (Manual) Eosinophils # (Manual) Basophils # (Manual) PT INR Fibrinogen dRVVT Confirm Interp Factor V Activity POC ABG pH 7.346 L POC ABG pCO2 34.4 L POC ABG pO2 314 H ABG pO2 ABG HCO3 ABG Base Excess ABG Hemoglobin Oxyhemoglobin Sodium Potassium Chloride Carbon Dioxide BUN Creatinine Glucose POC Glucose 195 H 153 H Lactic Acid Calcium Phosphorus Magnesium Direct Bilirubin AST ALT Alkaline Phosphatase Lactate Dehydrogenase Troponin T C-Reactive Protein Total Protein Albumin Prealbumin Triglycerides Cholesterol LDL Cholesterol Direct HDL Cholesterol Urine pH Urine WBC (Auto) Urine Creatinine Urine Total Protein Fluid Total Protein Vancomycin Trough Rheumatoid Factor Complement C4 Miscellaneous Test Crossmatch 11/21/16 11/22/16 11/22/16 23:37 04:48 05:00 WBC 29.7 H RBC 2.73 L Hgb 7.5 L Hct 24.2 L MCV MCH 27 L MCHC RDW 17.4 H Plt Count Lymph % (Auto) [place] % (Auto) Lymph # [place] # Baso # Seg Neutrophils % Seg Neuts % (Manual) Lymphocytes % (Manual) 7.0 L Monocytes % (Manual) Eosinophils % (Manual) Basophils % (Manual) Nucleated RBC % Seg Neutrophils # Seg Neutrophils # Man 15.4 H Lymphocytes # (Manual) Monocytes # (Manual) Eosinophils # (Manual) Basophils # (Manual) PT INR Fibrinogen dRVVT Confirm Interp Factor V Activity POC ABG pH POC ABG pCO2 24.6 L POC ABG pO2 189 H ABG pO2 ABG HCO3 ABG Base Excess ABG Hemoglobin Oxyhemoglobin Sodium Potassium Chloride Carbon Dioxide BUN Creatinine Glucose POC Glucose 65 L Lactic Acid Calcium Phosphorus Magnesium Direct Bilirubin AST ALT Alkaline Phosphatase Lactate Dehydrogenase Troponin T C-Reactive Protein Total Protein Albumin Prealbumin Triglycerides Cholesterol LDL Cholesterol Direct HDL Cholesterol Urine pH Urine WBC (Auto) Urine Creatinine Urine Total Protein Fluid Total Protein Vancomycin Trough Rheumatoid Factor Complement C4 Miscellaneous Test Crossmatch 11/22/16 11/23/16 11/23/16 05:00 03:44 04:06 WBC RBC 2.52 L Hgb 7.2 L Hct 21.5 L MCV MCH MCHC RDW 17.1 H Plt Count Lymph % (Auto) [place] % (Auto) 12.4 H Lymph # [place] # 1.4 H Baso # Seg Neutrophils % Seg Neuts % (Manual) Lymphocytes % (Manual) Monocytes % (Manual) Eosinophils % (Manual) Basophils % (Manual) Nucleated RBC % Seg Neutrophils # Seg Neutrophils # Man Lymphocytes # (Manual) Monocytes # (Manual) Eosinophils # (Manual) Basophils # (Manual) PT INR Fibrinogen dRVVT Confirm Interp Factor V Activity POC ABG pH 7.493 H POC ABG pCO2 29.5 L POC ABG pO2 49 L ABG pO2 ABG HCO3 ABG Base Excess ABG Hemoglobin Oxyhemoglobin Sodium 134 L Potassium Chloride 95.9 L Carbon Dioxide 14 L D BUN 51 H Creatinine 2.6 H Glucose POC Glucose Lactic Acid Calcium Phosphorus Magnesium Direct Bilirubin AST ALT Alkaline Phosphatase Lactate Dehydrogenase Troponin T C-Reactive Protein Total Protein Albumin Prealbumin Triglycerides Cholesterol LDL Cholesterol Direct HDL Cholesterol Urine pH Urine WBC (Auto) Urine Creatinine Urine Total Protein Fluid Total Protein Vancomycin Trough Rheumatoid Factor Complement C4 Miscellaneous Test Crossmatch 11/23/16 11/23/16 11/24/16 04:06 11:29 06:39 WBC RBC Hgb Hct MCV MCH MCHC RDW Plt Count Lymph % (Auto) [place] % (Auto) Lymph # [place] # Baso # Seg Neutrophils % Seg Neuts % (Manual) Lymphocytes % (Manual) Monocytes % (Manual) Eosinophils % (Manual) Basophils % (Manual) Nucleated RBC % Seg Neutrophils # Seg Neutrophils # Man Lymphocytes # (Manual) Monocytes # (Manual) Eosinophils # (Manual) Basophils # (Manual) PT INR Fibrinogen dRVVT Confirm Interp Factor V Activity POC ABG pH POC ABG pCO2 POC ABG pO2 ABG pO2 ABG HCO3 ABG Base Excess ABG Hemoglobin Oxyhemoglobin Sodium 136 L Potassium Chloride 95.2 L Carbon Dioxide BUN 60 H Creatinine 2.9 H Glucose POC Glucose 69 L 305 H Lactic Acid Calcium Phosphorus Magnesium 1.60 L Direct Bilirubin AST ALT Alkaline Phosphatase Lactate Dehydrogenase Troponin T C-Reactive Protein Total Protein Albumin Prealbumin Triglycerides Cholesterol LDL Cholesterol Direct HDL Cholesterol Urine pH Urine WBC (Auto) Urine Creatinine Urine Total Protein Fluid Total Protein Vancomycin Trough Rheumatoid Factor Complement C4 Miscellaneous Test Crossmatch 11/24/16 11/24/16 11/24/16 06:43 08:08 08:08 WBC 11.2 H RBC 2.47 L Hgb 6.8 L Hct 20.6 L MCV MCH MCHC RDW 17.0 H Plt Count Lymph % (Auto) [place] % (Auto) 10.3 H Lymph # [place] # 1.2 H Baso # Seg Neutrophils % Seg Neuts % (Manual) Lymphocytes % (Manual) Monocytes % (Manual) Eosinophils % (Manual) Basophils % (Manual) Nucleated RBC % Seg Neutrophils # Seg Neutrophils # Man Lymphocytes # (Manual) Monocytes # (Manual) Eosinophils # (Manual) Basophils # (Manual) PT INR Fibrinogen dRVVT Confirm Interp Factor V Activity POC ABG pH POC ABG pCO2 POC ABG pO2 ABG pO2 ABG HCO3 ABG Base Excess ABG Hemoglobin Oxyhemoglobin Sodium 135 L Potassium Chloride 96.3 L Carbon Dioxide BUN 61 H Creatinine 3.1 H Glucose POC Glucose 62 L Lactic Acid Calcium 8.2 L Phosphorus Magnesium Direct Bilirubin AST ALT Alkaline Phosphatase Lactate Dehydrogenase Troponin T C-Reactive Protein Total Protein Albumin Prealbumin Triglycerides Cholesterol LDL Cholesterol Direct HDL Cholesterol Urine pH Urine WBC (Auto) Urine Creatinine Urine Total Protein Fluid Total Protein Vancomycin Trough Rheumatoid Factor Complement C4 Miscellaneous Test Crossmatch 11/24/16 11/24/16 11/24/16 08:34 11:20 12:41 WBC RBC Hgb Hct MCV MCH MCHC RDW Plt Count Lymph % (Auto) [place] % (Auto) Lymph # [place] # Baso # Seg Neutrophils % Seg Neuts % (Manual) Lymphocytes % (Manual) Monocytes % (Manual) Eosinophils % (Manual) Basophils % (Manual) Nucleated RBC % Seg Neutrophils # Seg Neutrophils # Man Lymphocytes # (Manual) Monocytes # (Manual) Eosinophils # (Manual) Basophils # (Manual) PT INR Fibrinogen dRVVT Confirm Interp Factor V Activity POC ABG pH POC ABG pCO2 POC ABG pO2 ABG pO2 ABG HCO3 ABG Base Excess ABG Hemoglobin Oxyhemoglobin Sodium Potassium Chloride Carbon Dioxide BUN Creatinine Glucose POC Glucose 108 H Lactic Acid Calcium Phosphorus Magnesium 1.60 L Direct Bilirubin AST ALT Alkaline Phosphatase Lactate Dehydrogenase Troponin T C-Reactive Protein Total Protein Albumin Prealbumin Triglycerides Cholesterol LDL Cholesterol Direct HDL Cholesterol Urine pH Urine WBC (Auto) Urine Creatinine Urine Total Protein Fluid Total Protein Vancomycin Trough Rheumatoid Factor Complement C4 Miscellaneous Test Crossmatch See Detail 11/25/16 11/25/16 11/25/16 00:03 04:42 04:42 WBC RBC 3.03 L Hgb 8.6 L Hct 25.3 L MCV MCH MCHC RDW 16.2 H Plt Count Lymph % (Auto) [place] % (Auto) 8.1 H Lymph # [place] # Baso # Seg Neutrophils % 71.3 H Seg Neuts % (Manual) Lymphocytes % (Manual) Monocytes % (Manual) Eosinophils % (Manual) Basophils % (Manual) Nucleated RBC % Seg Neutrophils # Seg Neutrophils # Man Lymphocytes # (Manual) Monocytes # (Manual) Eosinophils # (Manual) Basophils # (Manual) PT INR Fibrinogen dRVVT Confirm Interp Factor V Activity POC ABG pH POC ABG pCO2 POC ABG pO2 ABG pO2 ABG HCO3 ABG Base Excess ABG Hemoglobin Oxyhemoglobin Sodium Potassium Chloride Carbon Dioxide BUN 61 H Creatinine 3.0 H Glucose 102 H POC Glucose 113 H Lactic Acid Calcium 8.2 L Phosphorus Magnesium Direct Bilirubin AST ALT Alkaline Phosphatase 142 H Lactate Dehydrogenase Troponin T C-Reactive Protein Total Protein 5.7 L Albumin 1.5 L Prealbumin Triglycerides Cholesterol LDL Cholesterol Direct HDL Cholesterol Urine pH Urine WBC (Auto) Urine Creatinine Urine Total Protein Fluid Total Protein Vancomycin Trough Rheumatoid Factor Complement C4 Miscellaneous Test Crossmatch 11/25/16 11/25/16 11/25/16 05:12 11:31 14:12 WBC RBC Hgb Hct MCV MCH MCHC RDW Plt Count Lymph % (Auto) [place] % (Auto) Lymph # [place] # Baso # Seg Neutrophils % Seg Neuts % (Manual) Lymphocytes % (Manual) Monocytes % (Manual) Eosinophils % (Manual) Basophils % (Manual) Nucleated RBC % Seg Neutrophils # Seg Neutrophils # Man Lymphocytes # (Manual) Monocytes # (Manual) Eosinophils # (Manual) Basophils # (Manual) PT INR Fibrinogen dRVVT Confirm Interp Factor V Activity POC ABG pH 7.487 H POC ABG pCO2 POC ABG pO2 153 H ABG pO2 ABG HCO3 ABG Base Excess ABG Hemoglobin Oxyhemoglobin Sodium Potassium Chloride Carbon Dioxide BUN Creatinine Glucose POC Glucose 131 H 140 H Lactic Acid Calcium Phosphorus Magnesium Direct Bilirubin AST ALT Alkaline Phosphatase Lactate Dehydrogenase Troponin T C-Reactive Protein Total Protein Albumin Prealbumin Triglycerides Cholesterol LDL Cholesterol Direct HDL Cholesterol Urine pH Urine WBC (Auto) Urine Creatinine Urine Total Protein Fluid Total Protein Vancomycin Trough Rheumatoid Factor Complement C4 Miscellaneous Test Crossmatch 11/25/16 11/26/16 11/26/16 17:23 00:09 05:13 WBC RBC 2.94 L Hgb 8.4 L Hct 24.6 L MCV MCH MCHC RDW 16.4 H Plt Count Lymph % (Auto) [place] % (Auto) 12.3 H Lymph # [place] # 1.1 H Baso # Seg Neutrophils % Seg Neuts % (Manual) Lymphocytes % (Manual) Monocytes % (Manual) Eosinophils % (Manual) Basophils % (Manual) Nucleated RBC % Seg Neutrophils # Seg Neutrophils # Man Lymphocytes # (Manual) Monocytes # (Manual) Eosinophils # (Manual) Basophils # (Manual) PT INR Fibrinogen dRVVT Confirm Interp Factor V Activity POC ABG pH POC ABG pCO2 POC ABG pO2 ABG pO2 ABG HCO3 ABG Base Excess ABG Hemoglobin Oxyhemoglobin Sodium Potassium Chloride Carbon Dioxide BUN Creatinine Glucose POC Glucose 146 H 112 H Lactic Acid Calcium Phosphorus Magnesium Direct Bilirubin AST ALT Alkaline Phosphatase Lactate Dehydrogenase Troponin T C-Reactive Protein Total Protein Albumin Prealbumin Triglycerides Cholesterol LDL Cholesterol Direct HDL Cholesterol Urine pH Urine WBC (Auto) Urine Creatinine Urine Total Protein Fluid Total Protein Vancomycin Trough Rheumatoid Factor Complement C4 Miscellaneous Test Crossmatch 11/26/16 11/26/16 11/26/16 05:13 05:28 11:53 WBC RBC Hgb Hct MCV MCH MCHC RDW Plt Count Lymph % (Auto) [place] % (Auto) Lymph # [place] # Baso # Seg Neutrophils % Seg Neuts % (Manual) Lymphocytes % (Manual) Monocytes % (Manual) Eosinophils % (Manual) Basophils % (Manual) Nucleated RBC % Seg Neutrophils # Seg Neutrophils # Man Lymphocytes # (Manual) Monocytes # (Manual) Eosinophils # (Manual) Basophils # (Manual) PT INR Fibrinogen dRVVT Confirm Interp Factor V Activity POC ABG pH POC ABG pCO2 POC ABG pO2 ABG pO2 ABG HCO3 ABG Base Excess ABG Hemoglobin Oxyhemoglobin Sodium Potassium Chloride 97.8 L Carbon Dioxide BUN 37 H Creatinine 2.0 H Glucose 109 H POC Glucose 117 H 111 H Lactic Acid Calcium 7.9 L Phosphorus 1.80 L D Magnesium Direct Bilirubin AST ALT Alkaline Phosphatase Lactate Dehydrogenase Troponin T C-Reactive Protein Total Protein Albumin Prealbumin Triglycerides Cholesterol LDL Cholesterol Direct HDL Cholesterol Urine pH Urine WBC (Auto) Urine Creatinine Urine Total Protein Fluid Total Protein Vancomycin Trough Rheumatoid Factor Complement C4 Miscellaneous Test Crossmatch 11/26/16 11/27/16 11/27/16 17:14 04:50 06:02 WBC RBC Hgb Hct MCV MCH MCHC RDW Plt Count Lymph % (Auto) [place] % (Auto) Lymph # [place] # Baso # Seg Neutrophils % Seg Neuts % (Manual) Lymphocytes % (Manual) Monocytes % (Manual) Eosinophils % (Manual) Basophils % (Manual) Nucleated RBC % Seg Neutrophils # Seg Neutrophils # Man Lymphocytes # (Manual) Monocytes # (Manual) Eosinophils # (Manual) Basophils # (Manual) PT INR Fibrinogen dRVVT Confirm Interp Factor V Activity POC ABG pH POC ABG pCO2 POC ABG pO2 ABG pO2 75.2 L ABG HCO3 26.4 H ABG Base Excess ABG Hemoglobin 7.6 L Oxyhemoglobin 94.8 L Sodium Potassium Chloride Carbon Dioxide BUN 49 H Creatinine 2.3 H Glucose POC Glucose 115 H Lactic Acid Calcium Phosphorus 1.50 L Magnesium Direct Bilirubin AST ALT Alkaline Phosphatase Lactate Dehydrogenase Troponin T C-Reactive Protein Total Protein Albumin Prealbumin Triglycerides Cholesterol LDL Cholesterol Direct HDL Cholesterol Urine pH Urine WBC (Auto) Urine Creatinine Urine Total Protein Fluid Total Protein Vancomycin Trough Rheumatoid Factor Complement C4 Miscellaneous Test Crossmatch 11/27/16 11/27/16 11/27/16 06:02 11:25 17:25 WBC 11.6 H RBC 2.75 L Hgb 7.6 L Hct 23.4 L MCV MCH MCHC RDW 16.5 H Plt Count Lymph % (Auto) [place] % (Auto) Lymph # [place] # Baso # Seg Neutrophils % Seg Neuts % (Manual) Lymphocytes % (Manual) Monocytes % (Manual) Eosinophils % (Manual) Basophils % (Manual) Nucleated RBC % Seg Neutrophils # Seg Neutrophils # Man Lymphocytes # (Manual) Monocytes # (Manual) Eosinophils # (Manual) Basophils # (Manual) PT INR Fibrinogen dRVVT Confirm Interp Factor V Activity POC ABG pH POC ABG pCO2 POC ABG pO2 ABG pO2 ABG HCO3 ABG Base Excess ABG Hemoglobin Oxyhemoglobin Sodium Potassium Chloride Carbon Dioxide BUN Creatinine Glucose POC Glucose 114 H 126 H Lactic Acid Calcium Phosphorus Magnesium Direct Bilirubin AST ALT Alkaline Phosphatase Lactate Dehydrogenase Troponin T C-Reactive Protein Total Protein Albumin Prealbumin Triglycerides Cholesterol LDL Cholesterol Direct HDL Cholesterol Urine pH Urine WBC (Auto) Urine Creatinine Urine Total Protein Fluid Total Protein Vancomycin Trough Rheumatoid Factor Complement C4 Miscellaneous Test Crossmatch 11/28/16 11/28/16 11/28/16 04:45 05:33 05:44 WBC RBC Hgb Hct MCV MCH MCHC RDW Plt Count Lymph % (Auto) [place] % (Auto) Lymph # [place] # Baso # Seg Neutrophils % Seg Neuts % (Manual) Lymphocytes % (Manual) Monocytes % (Manual) Eosinophils % (Manual) Basophils % (Manual) Nucleated RBC % Seg Neutrophils # Seg Neutrophils # Man Lymphocytes # (Manual) Monocytes # (Manual) Eosinophils # (Manual) Basophils # (Manual) PT INR Fibrinogen dRVVT Confirm Interp Factor V Activity POC ABG pH POC ABG pCO2 POC ABG pO2 ABG pO2 99.3 H ABG HCO3 ABG Base Excess ABG Hemoglobin 8.3 L Oxyhemoglobin Sodium Potassium Chloride Carbon Dioxide BUN 63 H Creatinine 2.4 H Glucose 102 H POC Glucose 108 H Lactic Acid Calcium Phosphorus 1.80 L Magnesium Direct Bilirubin AST ALT Alkaline Phosphatase Lactate Dehydrogenase Troponin T C-Reactive Protein Total Protein Albumin Prealbumin Triglycerides Cholesterol LDL Cholesterol Direct HDL Cholesterol Urine pH Urine WBC (Auto) Urine Creatinine Urine Total Protein Fluid Total Protein Vancomycin Trough Rheumatoid Factor Complement C4 Miscellaneous Test Crossmatch 11/28/16 11/28/16 11/28/16 12:31 16:09 23:46 WBC RBC Hgb Hct MCV MCH MCHC RDW Plt Count Lymph % (Auto) [place] % (Auto) Lymph # [place] # Baso # Seg Neutrophils % Seg Neuts % (Manual) Lymphocytes % (Manual) Monocytes % (Manual) Eosinophils % (Manual) Basophils % (Manual) Nucleated RBC % Seg Neutrophils # Seg Neutrophils # Man Lymphocytes # (Manual) Monocytes # (Manual) Eosinophils # (Manual) Basophils # (Manual) PT INR Fibrinogen dRVVT Confirm Interp Factor V Activity POC ABG pH POC ABG pCO2 POC ABG pO2 ABG pO2 ABG HCO3 ABG Base Excess ABG Hemoglobin Oxyhemoglobin Sodium Potassium Chloride Carbon Dioxide BUN Creatinine Glucose POC Glucose 126 H 111 H 119 H Lactic Acid Calcium Phosphorus Magnesium Direct Bilirubin AST ALT Alkaline Phosphatase Lactate Dehydrogenase Troponin T C-Reactive Protein Total Protein Albumin Prealbumin Triglycerides Cholesterol LDL Cholesterol Direct HDL Cholesterol Urine pH Urine WBC (Auto) Urine Creatinine Urine Total Protein Fluid Total Protein Vancomycin Trough Rheumatoid Factor Complement C4 Miscellaneous Test Crossmatch 11/29/16 11/29/16 11/29/16 03:33 04:52 05:10 WBC RBC Hgb Hct MCV MCH MCHC RDW Plt Count Lymph % (Auto) [place] % (Auto) Lymph # [place] # Baso # Seg Neutrophils % Seg Neuts % (Manual) Lymphocytes % (Manual) Monocytes % (Manual) Eosinophils % (Manual) Basophils % (Manual) Nucleated RBC % Seg Neutrophils # Seg Neutrophils # Man Lymphocytes # (Manual) Monocytes # (Manual) Eosinophils # (Manual) Basophils # (Manual) PT INR Fibrinogen dRVVT Confirm Interp Factor V Activity POC ABG pH POC ABG pCO2 POC ABG pO2 ABG pO2 ABG HCO3 ABG Base Excess ABG Hemoglobin 7.0 L Oxyhemoglobin 94.9 L Sodium Potassium Chloride Carbon Dioxide BUN 73 H Creatinine 2.7 H Glucose POC Glucose 108 H Lactic Acid Calcium Phosphorus Magnesium Direct Bilirubin AST ALT Alkaline Phosphatase Lactate Dehydrogenase Troponin T C-Reactive Protein Total Protein Albumin Prealbumin Triglycerides Cholesterol LDL Cholesterol Direct HDL Cholesterol Urine pH Urine WBC (Auto) Urine Creatinine Urine Total Protein Fluid Total Protein Vancomycin Trough Rheumatoid Factor Complement C4 Miscellaneous Test Crossmatch 11/29/16 11/29/16 11/29/16 12:16 18:05 23:46 WBC RBC Hgb Hct MCV MCH MCHC RDW Plt Count Lymph % (Auto) [place] % (Auto) Lymph # [place] # Baso # Seg Neutrophils % Seg Neuts % (Manual) Lymphocytes % (Manual) Monocytes % (Manual) Eosinophils % (Manual) Basophils % (Manual) Nucleated RBC % Seg Neutrophils # Seg Neutrophils # Man Lymphocytes # (Manual) Monocytes # (Manual) Eosinophils # (Manual) Basophils # (Manual) PT INR Fibrinogen dRVVT Confirm Interp Factor V Activity POC ABG pH POC ABG pCO2 POC ABG pO2 ABG pO2 ABG HCO3 ABG Base Excess ABG Hemoglobin Oxyhemoglobin Sodium Potassium Chloride Carbon Dioxide BUN Creatinine Glucose POC Glucose 133 H 146 H 141 H Lactic Acid Calcium Phosphorus Magnesium Direct Bilirubin AST ALT Alkaline Phosphatase Lactate Dehydrogenase Troponin T C-Reactive Protein Total Protein Albumin Prealbumin Triglycerides Cholesterol LDL Cholesterol Direct HDL Cholesterol Urine pH Urine WBC (Auto) Urine Creatinine Urine Total Protein Fluid Total Protein Vancomycin Trough Rheumatoid Factor Complement C4 Miscellaneous Test Crossmatch 11/30/16 11/30/16 11/30/16 04:17 04:17 04:32 WBC 12.0 H RBC 2.80 L Hgb 7.8 L Hct 23.6 L MCV MCH MCHC RDW 16.6 H Plt Count Lymph % (Auto) [place] % (Auto) 11.3 H Lymph # [place] # 1.4 H Baso # Seg Neutrophils % Seg Neuts % (Manual) Lymphocytes % (Manual) Monocytes % (Manual) Eosinophils % (Manual) Basophils % (Manual) Nucleated RBC % Seg Neutrophils # 8.2 H Seg Neutrophils # Man Lymphocytes # (Manual) Monocytes # (Manual) Eosinophils # (Manual) Basophils # (Manual) PT INR Fibrinogen dRVVT Confirm Interp Factor V Activity POC ABG pH POC ABG pCO2 POC ABG pO2 ABG pO2 ABG HCO3 ABG Base Excess ABG Hemoglobin Oxyhemoglobin Sodium 169 H* D Potassium 5.1 H Chloride 121.5 H Carbon Dioxide BUN 34 H Creatinine 1.3 H D Glucose 133 H POC Glucose 131 H Lactic Acid Calcium 10.3 H Phosphorus Magnesium Direct Bilirubin AST ALT Alkaline Phosphatase Lactate Dehydrogenase Troponin T C-Reactive Protein Total Protein Albumin Prealbumin Triglycerides Cholesterol LDL Cholesterol Direct HDL Cholesterol Urine pH Urine WBC (Auto) Urine Creatinine Urine Total Protein Fluid Total Protein Vancomycin Trough Rheumatoid Factor Complement C4 Miscellaneous Test Crossmatch 11/30/16 11/30/16 11/30/16 05:45 11:10 17:26 WBC RBC Hgb Hct MCV MCH MCHC RDW Plt Count Lymph % (Auto) [place] % (Auto) Lymph # [place] # Baso # Seg Neutrophils % Seg Neuts % (Manual) Lymphocytes % (Manual) Monocytes % (Manual) Eosinophils % (Manual) Basophils % (Manual) Nucleated RBC % Seg Neutrophils # Seg Neutrophils # Man Lymphocytes # (Manual) Monocytes # (Manual) Eosinophils # (Manual) Basophils # (Manual) PT INR Fibrinogen dRVVT Confirm Interp Factor V Activity POC ABG pH POC ABG pCO2 POC ABG pO2 ABG pO2 ABG HCO3 ABG Base Excess ABG Hemoglobin Oxyhemoglobin Sodium Potassium Chloride Carbon Dioxide BUN 45 H Creatinine 1.6 H Glucose 131 H POC Glucose 146 H 134 H Lactic Acid Calcium Phosphorus Magnesium Direct Bilirubin AST ALT Alkaline Phosphatase Lactate Dehydrogenase Troponin T C-Reactive Protein Total Protein Albumin Prealbumin Triglycerides Cholesterol LDL Cholesterol Direct HDL Cholesterol Urine pH Urine WBC (Auto) Urine Creatinine Urine Total Protein Fluid Total Protein Vancomycin Trough Rheumatoid Factor Complement C4 Miscellaneous Test Crossmatch 11/30/16 12/01/16 12/01/16 23:35 00:06 03:35 WBC RBC Hgb Hct MCV MCH MCHC RDW Plt Count Lymph % (Auto) [place] % (Auto) Lymph # [place] # Baso # Seg Neutrophils % Seg Neuts % (Manual) Lymphocytes % (Manual) Monocytes % (Manual) Eosinophils % (Manual) Basophils % (Manual) Nucleated RBC % Seg Neutrophils # Seg Neutrophils # Man Lymphocytes # (Manual) Monocytes # (Manual) Eosinophils # (Manual) Basophils # (Manual) PT INR Fibrinogen dRVVT Confirm Interp Factor V Activity POC ABG pH POC ABG pCO2 POC ABG pO2 ABG pO2 ABG HCO3 ABG Base Excess ABG Hemoglobin 6.9 L Oxyhemoglobin Sodium Potassium Chloride Carbon Dioxide BUN 58 H Creatinine 1.8 H Glucose 146 H POC Glucose 151 H Lactic Acid Calcium Phosphorus Magnesium Direct Bilirubin AST ALT Alkaline Phosphatase Lactate Dehydrogenase Troponin T C-Reactive Protein Total Protein Albumin Prealbumin Triglycerides Cholesterol LDL Cholesterol Direct HDL Cholesterol Urine pH Urine WBC (Auto) Urine Creatinine Urine Total Protein Fluid Total Protein Vancomycin Trough Rheumatoid Factor Complement C4 Miscellaneous Test Crossmatch 12/01/16 12/01/16 12/01/16 03:35 05:47 11:52 WBC 12.3 H RBC 2.82 L Hgb 7.8 L Hct 23.7 L MCV MCH MCHC RDW 16.7 H Plt Count Lymph % (Auto) [place] % (Auto) 9.8 H Lymph # [place] # 1.2 H Baso # Seg Neutrophils % Seg Neuts % (Manual) Lymphocytes % (Manual) Monocytes % (Manual) Eosinophils % (Manual) Basophils % (Manual) Nucleated RBC % Seg Neutrophils # 8.4 H Seg Neutrophils # Man Lymphocytes # (Manual) Monocytes # (Manual) Eosinophils # (Manual) Basophils # (Manual) PT INR Fibrinogen dRVVT Confirm Interp Factor V Activity POC ABG pH POC ABG pCO2 POC ABG pO2 ABG pO2 ABG HCO3 ABG Base Excess ABG Hemoglobin Oxyhemoglobin Sodium Potassium Chloride Carbon Dioxide BUN Creatinine Glucose POC Glucose 152 H 152 H Lactic Acid Calcium Phosphorus Magnesium Direct Bilirubin AST ALT Alkaline Phosphatase Lactate Dehydrogenase Troponin T C-Reactive Protein Total Protein Albumin Prealbumin Triglycerides Cholesterol LDL Cholesterol Direct HDL Cholesterol Urine pH Urine WBC (Auto) Urine Creatinine Urine Total Protein Fluid Total Protein Vancomycin Trough Rheumatoid Factor Complement C4 Miscellaneous Test Crossmatch 12/01/16 12/01/16 12/02/16 17:40 23:41 05:00 WBC RBC Hgb Hct MCV MCH MCHC RDW Plt Count Lymph % (Auto) [place] % (Auto) Lymph # [place] # Baso # Seg Neutrophils % Seg Neuts % (Manual) Lymphocytes % (Manual) Monocytes % (Manual) Eosinophils % (Manual) Basophils % (Manual) Nucleated RBC % Seg Neutrophils # Seg Neutrophils # Man Lymphocytes # (Manual) Monocytes # (Manual) Eosinophils # (Manual) Basophils # (Manual) PT INR Fibrinogen dRVVT Confirm Interp Factor V Activity POC ABG pH POC ABG pCO2 POC ABG pO2 ABG pO2 ABG HCO3 ABG Base Excess ABG Hemoglobin Oxyhemoglobin Sodium Potassium Chloride Carbon Dioxide BUN 45 H Creatinine Glucose 115 H POC Glucose 140 H 144 H Lactic Acid Calcium Phosphorus Magnesium Direct Bilirubin AST ALT Alkaline Phosphatase Lactate Dehydrogenase Troponin T C-Reactive Protein Total Protein Albumin Prealbumin Triglycerides Cholesterol LDL Cholesterol Direct HDL Cholesterol Urine pH Urine WBC (Auto) Urine Creatinine Urine Total Protein Fluid Total Protein Vancomycin Trough Rheumatoid Factor Complement C4 Miscellaneous Test Crossmatch 12/02/16 12/02/16 12/02/16 05:31 11:20 17:38 WBC RBC Hgb Hct MCV MCH MCHC RDW Plt Count Lymph % (Auto) [place] % (Auto) Lymph # [place] # Baso # Seg Neutrophils % Seg Neuts % (Manual) Lymphocytes % (Manual) Monocytes % (Manual) Eosinophils % (Manual) Basophils % (Manual) Nucleated RBC % Seg Neutrophils # Seg Neutrophils # Man Lymphocytes # (Manual) Monocytes # (Manual) Eosinophils # (Manual) Basophils # (Manual) PT INR Fibrinogen dRVVT Confirm Interp Factor V Activity POC ABG pH POC ABG pCO2 POC ABG pO2 ABG pO2 ABG HCO3 ABG Base Excess ABG Hemoglobin Oxyhemoglobin Sodium Potassium Chloride Carbon Dioxide BUN Creatinine Glucose POC Glucose 136 H 177 H 139 H Lactic Acid Calcium Phosphorus Magnesium Direct Bilirubin AST ALT Alkaline Phosphatase Lactate Dehydrogenase Troponin T C-Reactive Protein Total Protein Albumin Prealbumin Triglycerides Cholesterol LDL Cholesterol Direct HDL Cholesterol Urine pH Urine WBC (Auto) Urine Creatinine Urine Total Protein Fluid Total Protein Vancomycin Trough Rheumatoid Factor Complement C4 Miscellaneous Test Crossmatch 12/02/16 12/03/16 12/03/16 23:43 04:00 04:00 WBC 20.4 H RBC 2.74 L Hgb 7.4 L Hct 23.6 L MCV MCH 27 L MCHC RDW 17.1 H Plt Count Lymph % (Auto) [place] % (Auto) Lymph # [place] # Baso # Seg Neutrophils % Seg Neuts % (Manual) 31.0 L Lymphocytes % (Manual) Monocytes % (Manual) Eosinophils % (Manual) Basophils % (Manual) Nucleated RBC % Seg Neutrophils # Seg Neutrophils # Man Lymphocytes # (Manual) Monocytes # (Manual) Eosinophils # (Manual) Basophils # (Manual) PT INR Fibrinogen dRVVT Confirm Interp Factor V Activity POC ABG pH POC ABG pCO2 POC ABG pO2 ABG pO2 ABG HCO3 ABG Base Excess ABG Hemoglobin Oxyhemoglobin Sodium Potassium Chloride Carbon Dioxide BUN 61 H Creatinine 1.6 H Glucose 119 H POC Glucose 158 H Lactic Acid Calcium Phosphorus Magnesium Direct Bilirubin AST ALT Alkaline Phosphatase Lactate Dehydrogenase Troponin T C-Reactive Protein Total Protein Albumin Prealbumin Triglycerides Cholesterol LDL Cholesterol Direct HDL Cholesterol Urine pH Urine WBC (Auto) Urine Creatinine Urine Total Protein Fluid Total Protein Vancomycin Trough Rheumatoid Factor Complement C4 Miscellaneous Test Crossmatch 12/03/16 12/03/16 12/03/16 05:02 12:11 18:16 WBC RBC Hgb Hct MCV MCH MCHC RDW Plt Count Lymph % (Auto) [place] % (Auto) Lymph # [place] # Baso # Seg Neutrophils % Seg Neuts % (Manual) Lymphocytes % (Manual) Monocytes % (Manual) Eosinophils % (Manual) Basophils % (Manual) Nucleated RBC % Seg Neutrophils # Seg Neutrophils # Man Lymphocytes # (Manual) Monocytes # (Manual) Eosinophils # (Manual) Basophils # (Manual) PT INR Fibrinogen dRVVT Confirm Interp Factor V Activity POC ABG pH POC ABG pCO2 POC ABG pO2 ABG pO2 ABG HCO3 ABG Base Excess ABG Hemoglobin Oxyhemoglobin Sodium Potassium Chloride Carbon Dioxide BUN Creatinine Glucose POC Glucose 146 H 157 H 124 H Lactic Acid Calcium Phosphorus Magnesium Direct Bilirubin AST ALT Alkaline Phosphatase Lactate Dehydrogenase Troponin T C-Reactive Protein Total Protein Albumin Prealbumin Triglycerides Cholesterol LDL Cholesterol Direct HDL Cholesterol Urine pH Urine WBC (Auto) Urine Creatinine Urine Total Protein Fluid Total Protein Vancomycin Trough Rheumatoid Factor Complement C4 Miscellaneous Test Crossmatch 12/03/16 12/04/16 12/04/16 23:41 04:00 04:45 WBC RBC Hgb Hct MCV MCH MCHC RDW Plt Count Lymph % (Auto) [place] % (Auto) Lymph # [place] # Baso # Seg Neutrophils % Seg Neuts % (Manual) Lymphocytes % (Manual) Monocytes % (Manual) Eosinophils % (Manual) Basophils % (Manual) Nucleated RBC % Seg Neutrophils # Seg Neutrophils # Man Lymphocytes # (Manual) Monocytes # (Manual) Eosinophils # (Manual) Basophils # (Manual) PT INR Fibrinogen dRVVT Confirm Interp Factor V Activity POC ABG pH POC ABG pCO2 POC ABG pO2 ABG pO2 ABG HCO3 ABG Base Excess ABG Hemoglobin Oxyhemoglobin Sodium Potassium Chloride Carbon Dioxide BUN 76 H Creatinine 1.6 H Glucose POC Glucose 130 H 136 H Lactic Acid Calcium Phosphorus Magnesium Direct Bilirubin AST ALT Alkaline Phosphatase 155 H Lactate Dehydrogenase Troponin T C-Reactive Protein Total Protein 5.5 L Albumin 1.5 L Prealbumin Triglycerides Cholesterol LDL Cholesterol Direct HDL Cholesterol Urine pH Urine WBC (Auto) Urine Creatinine Urine Total Protein Fluid Total Protein Vancomycin Trough Rheumatoid Factor Complement C4 Miscellaneous Test Crossmatch 12/04/16 12/04/16 12/05/16 12:08 17:23 00:10 WBC RBC Hgb Hct MCV MCH MCHC RDW Plt Count Lymph % (Auto) [place] % (Auto) Lymph # [place] # Baso # Seg Neutrophils % Seg Neuts % (Manual) Lymphocytes % (Manual) Monocytes % (Manual) Eosinophils % (Manual) Basophils % (Manual) Nucleated RBC % Seg Neutrophils # Seg Neutrophils # Man Lymphocytes # (Manual) Monocytes # (Manual) Eosinophils # (Manual) Basophils # (Manual) PT INR Fibrinogen dRVVT Confirm Interp Factor V Activity POC ABG pH POC ABG pCO2 POC ABG pO2 ABG pO2 ABG HCO3 ABG Base Excess ABG Hemoglobin Oxyhemoglobin Sodium Potassium Chloride Carbon Dioxide BUN Creatinine Glucose POC Glucose 114 H 129 H 124 H Lactic Acid Calcium Phosphorus Magnesium Direct Bilirubin AST ALT Alkaline Phosphatase Lactate Dehydrogenase Troponin T C-Reactive Protein Total Protein Albumin Prealbumin Triglycerides Cholesterol LDL Cholesterol Direct HDL Cholesterol Urine pH Urine WBC (Auto) Urine Creatinine Urine Total Protein Fluid Total Protein Vancomycin Trough Rheumatoid Factor Complement C4 Miscellaneous Test Crossmatch 12/05/16 12/05/16 12/05/16 05:00 05:00 05:18 WBC RBC Hgb Hct MCV MCH MCHC RDW Plt Count Lymph % (Auto) [place] % (Auto) Lymph # [place] # Baso # Seg Neutrophils % Seg Neuts % (Manual) Lymphocytes % (Manual) Monocytes % (Manual) Eosinophils % (Manual) Basophils % (Manual) Nucleated RBC % Seg Neutrophils # Seg Neutrophils # Man Lymphocytes # (Manual) Monocytes # (Manual) Eosinophils # (Manual) Basophils # (Manual) PT INR Fibrinogen dRVVT Confirm Interp Factor V Activity POC ABG pH POC ABG pCO2 POC ABG pO2 ABG pO2 ABG HCO3 ABG Base Excess ABG Hemoglobin Oxyhemoglobin Sodium Potassium Chloride Carbon Dioxide 21 L BUN 85 H Creatinine 1.9 H Glucose 131 H POC Glucose 154 H Lactic Acid Calcium Phosphorus Magnesium Direct Bilirubin AST ALT Alkaline Phosphatase Lactate Dehydrogenase Troponin T C-Reactive Protein 19.30 H Total Protein Albumin Prealbumin Triglycerides Cholesterol LDL Cholesterol Direct HDL Cholesterol Urine pH Urine WBC (Auto) Urine Creatinine Urine Total Protein Fluid Total Protein Vancomycin Trough Rheumatoid Factor Complement C4 Miscellaneous Test Crossmatch 12/05/16 12/05/16 12/05/16 11:43 17:46 23:25 WBC RBC Hgb Hct MCV MCH MCHC RDW Plt Count Lymph % (Auto) [place] % (Auto) Lymph # [place] # Baso # Seg Neutrophils % Seg Neuts % (Manual) Lymphocytes % (Manual) Monocytes % (Manual) Eosinophils % (Manual) Basophils % (Manual) Nucleated RBC % Seg Neutrophils # Seg Neutrophils # Man Lymphocytes # (Manual) Monocytes # (Manual) Eosinophils # (Manual) Basophils # (Manual) PT INR Fibrinogen dRVVT Confirm Interp Factor V Activity POC ABG pH POC ABG pCO2 POC ABG pO2 ABG pO2 ABG HCO3 ABG Base Excess ABG Hemoglobin Oxyhemoglobin Sodium Potassium Chloride Carbon Dioxide BUN Creatinine Glucose POC Glucose 117 H 113 H 111 H Lactic Acid Calcium Phosphorus Magnesium Direct Bilirubin AST ALT Alkaline Phosphatase Lactate Dehydrogenase Troponin T C-Reactive Protein Total Protein Albumin Prealbumin Triglycerides Cholesterol LDL Cholesterol Direct HDL Cholesterol Urine pH Urine WBC (Auto) Urine Creatinine Urine Total Protein Fluid Total Protein Vancomycin Trough Rheumatoid Factor Complement C4 Miscellaneous Test Crossmatch 12/05/16 12/06/16 12/06/16 Unknown 04:58 06:00 WBC RBC Hgb Hct MCV MCH MCHC RDW Plt Count Lymph % (Auto) [place] % (Auto) Lymph # [place] # Baso # Seg Neutrophils % Seg Neuts % (Manual) Lymphocytes % (Manual) Monocytes % (Manual) Eosinophils % (Manual) Basophils % (Manual) Nucleated RBC % Seg Neutrophils # Seg Neutrophils # Man Lymphocytes # (Manual) Monocytes # (Manual) Eosinophils # (Manual) Basophils # (Manual) PT INR Fibrinogen dRVVT Confirm Interp Factor V Activity POC ABG pH POC ABG pCO2 POC ABG pO2 ABG pO2 75.2 L ABG HCO3 ABG Base Excess -3.4 L ABG Hemoglobin 7.4 L Oxyhemoglobin 94.5 L Sodium Potassium Chloride Carbon Dioxide 20 L BUN 99 H Creatinine 2.1 H Glucose 126 H POC Glucose 145 H Lactic Acid Calcium Phosphorus 4.80 H Magnesium Direct Bilirubin AST ALT Alkaline Phosphatase Lactate Dehydrogenase Troponin T C-Reactive Protein Total Protein Albumin Prealbumin Triglycerides Cholesterol LDL Cholesterol Direct HDL Cholesterol Urine pH Urine WBC (Auto) Urine Creatinine Urine Total Protein Fluid Total Protein Vancomycin Trough Rheumatoid Factor Complement C4 Miscellaneous Test Crossmatch 12/06/16 12/06/16 12/06/16 06:46 11:54 17:55 WBC RBC Hgb 8.3 L Hct 26.4 L MCV MCH MCHC RDW Plt Count Lymph % (Auto) [place] % (Auto) Lymph # [place] # Baso # Seg Neutrophils % Seg Neuts % (Manual) Lymphocytes % (Manual) Monocytes % (Manual) Eosinophils % (Manual) Basophils % (Manual) Nucleated RBC % Seg Neutrophils # Seg Neutrophils # Man Lymphocytes # (Manual) Monocytes # (Manual) Eosinophils # (Manual) Basophils # (Manual) PT INR Fibrinogen dRVVT Confirm Interp Factor V Activity POC ABG pH POC ABG pCO2 POC ABG pO2 ABG pO2 ABG HCO3 ABG Base Excess ABG Hemoglobin Oxyhemoglobin Sodium Potassium Chloride Carbon Dioxide BUN Creatinine Glucose POC Glucose 126 H 157 H Lactic Acid Calcium Phosphorus Magnesium Direct Bilirubin AST ALT Alkaline Phosphatase Lactate Dehydrogenase Troponin T C-Reactive Protein Total Protein Albumin Prealbumin Triglycerides Cholesterol LDL Cholesterol Direct HDL Cholesterol Urine pH Urine WBC (Auto) Urine Creatinine Urine Total Protein Fluid Total Protein Vancomycin Trough Rheumatoid Factor Complement C4 Miscellaneous Test Crossmatch 12/06/16 12/07/16 12/07/16 23:59 05:34 06:30 WBC RBC Hgb Hct MCV MCH MCHC RDW Plt Count Lymph % (Auto) [place] % (Auto) Lymph # [place] # Baso # Seg Neutrophils % Seg Neuts % (Manual) Lymphocytes % (Manual) Monocytes % (Manual) Eosinophils % (Manual) Basophils % (Manual) Nucleated RBC % Seg Neutrophils # Seg Neutrophils # Man Lymphocytes # (Manual) Monocytes # (Manual) Eosinophils # (Manual) Basophils # (Manual) PT INR Fibrinogen dRVVT Confirm Interp Factor V Activity POC ABG pH POC ABG pCO2 POC ABG pO2 ABG pO2 ABG HCO3 ABG Base Excess ABG Hemoglobin Oxyhemoglobin Sodium Potassium Chloride Carbon Dioxide BUN 67 H Creatinine 1.4 H Glucose 126 H POC Glucose 129 H 129 H Lactic Acid Calcium Phosphorus Magnesium Direct Bilirubin AST ALT Alkaline Phosphatase Lactate Dehydrogenase Troponin T C-Reactive Protein Total Protein Albumin Prealbumin Triglycerides Cholesterol LDL Cholesterol Direct HDL Cholesterol Urine pH Urine WBC (Auto) Urine Creatinine Urine Total Protein Fluid Total Protein Vancomycin Trough Rheumatoid Factor Complement C4 Miscellaneous Test Crossmatch 12/07/16 12/07/16 12/07/16 06:30 08:00 09:45 WBC 18.8 H RBC 2.52 L Hgb 6.9 L 6.8 L Hct 21.2 L 21.1 L MCV MCH 27 L MCHC RDW 18.0 H Plt Count Lymph % (Auto) [place] % (Auto) 9.9 H Lymph # [place] # 1.9 H Baso # Seg Neutrophils % 71.8 H Seg Neuts % (Manual) Lymphocytes % (Manual) Monocytes % (Manual) Eosinophils % (Manual) Basophils % (Manual) Nucleated RBC % Seg Neutrophils # 13.5 H Seg Neutrophils # Man Lymphocytes # (Manual) Monocytes # (Manual) Eosinophils # (Manual) Basophils # (Manual) PT INR Fibrinogen dRVVT Confirm Interp Factor V Activity POC ABG pH POC ABG pCO2 POC ABG pO2 ABG pO2 ABG HCO3 ABG Base Excess ABG Hemoglobin Oxyhemoglobin Sodium Potassium Chloride Carbon Dioxide BUN Creatinine Glucose POC Glucose Lactic Acid Calcium Phosphorus Magnesium Direct Bilirubin AST ALT Alkaline Phosphatase Lactate Dehydrogenase Troponin T C-Reactive Protein Total Protein Albumin Prealbumin Triglycerides Cholesterol LDL Cholesterol Direct HDL Cholesterol Urine pH Urine WBC (Auto) Urine Creatinine Urine Total Protein Fluid Total Protein Vancomycin Trough Rheumatoid Factor Complement C4 Miscellaneous Test Crossmatch See Detail 12/07/16 12/07/16 12/07/16 11:44 18:19 23:59 WBC RBC Hgb Hct MCV MCH MCHC RDW Plt Count Lymph % (Auto) [place] % (Auto) Lymph # [place] # Baso # Seg Neutrophils % Seg Neuts % (Manual) Lymphocytes % (Manual) Monocytes % (Manual) Eosinophils % (Manual) Basophils % (Manual) Nucleated RBC % Seg Neutrophils # Seg Neutrophils # Man Lymphocytes # (Manual) Monocytes # (Manual) Eosinophils # (Manual) Basophils # (Manual) PT INR Fibrinogen dRVVT Confirm Interp Factor V Activity POC ABG pH POC ABG pCO2 POC ABG pO2 ABG pO2 ABG HCO3 ABG Base Excess ABG Hemoglobin Oxyhemoglobin Sodium Potassium Chloride Carbon Dioxide BUN Creatinine Glucose POC Glucose 137 H 138 H 133 H Lactic Acid Calcium Phosphorus Magnesium Direct Bilirubin AST ALT Alkaline Phosphatase Lactate Dehydrogenase Troponin T C-Reactive Protein Total Protein Albumin Prealbumin Triglycerides Cholesterol LDL Cholesterol Direct HDL Cholesterol Urine pH Urine WBC (Auto) Urine Creatinine Urine Total Protein Fluid Total Protein Vancomycin Trough Rheumatoid Factor Complement C4 Miscellaneous Test Crossmatch 12/08/16 12/08/16 12/08/16 05:25 05:30 05:30 WBC 23.8 H RBC 2.88 L Hgb 8.1 L Hct 24.3 L MCV MCH MCHC RDW 16.7 H Plt Count Lymph % (Auto) [place] % (Auto) Lymph # [place] # Baso # Seg Neutrophils % Seg Neuts % (Manual) 76.0 H Lymphocytes % (Manual) 9.0 L Monocytes % (Manual) 9.0 H Eosinophils % (Manual) Basophils % (Manual) Nucleated RBC % Seg Neutrophils # Seg Neutrophils # Man 18.1 H Lymphocytes # (Manual) Monocytes # (Manual) 2.1 H Eosinophils # (Manual) Basophils # (Manual) PT INR Fibrinogen dRVVT Confirm Interp Factor V Activity POC ABG pH POC ABG pCO2 POC ABG pO2 ABG pO2 ABG HCO3 ABG Base Excess ABG Hemoglobin Oxyhemoglobin Sodium Potassium Chloride Carbon Dioxide 21 L BUN 76 H Creatinine 1.6 H Glucose 133 H POC Glucose 177 H Lactic Acid Calcium Phosphorus Magnesium Direct Bilirubin AST ALT Alkaline Phosphatase Lactate Dehydrogenase Troponin T C-Reactive Protein Total Protein Albumin Prealbumin Triglycerides Cholesterol LDL Cholesterol Direct HDL Cholesterol Urine pH Urine WBC (Auto) Urine Creatinine Urine Total Protein Fluid Total Protein Vancomycin Trough Rheumatoid Factor Complement C4 Miscellaneous Test Crossmatch 12/08/16 12/08/16 12/09/16 11:45 18:00 00:00 WBC RBC Hgb Hct MCV MCH MCHC RDW Plt Count Lymph % (Auto) [place] % (Auto) Lymph # [place] # Baso # Seg Neutrophils % Seg Neuts % (Manual) Lymphocytes % (Manual) Monocytes % (Manual) Eosinophils % (Manual) Basophils % (Manual) Nucleated RBC % Seg Neutrophils # Seg Neutrophils # Man Lymphocytes # (Manual) Monocytes # (Manual) Eosinophils # (Manual) Basophils # (Manual) PT INR Fibrinogen dRVVT Confirm Interp Factor V Activity POC ABG pH POC ABG pCO2 POC ABG pO2 ABG pO2 ABG HCO3 ABG Base Excess ABG Hemoglobin Oxyhemoglobin Sodium Potassium Chloride Carbon Dioxide BUN Creatinine Glucose POC Glucose 163 H 123 H 137 H Lactic Acid Calcium Phosphorus Magnesium Direct Bilirubin AST ALT Alkaline Phosphatase Lactate Dehydrogenase Troponin T C-Reactive Protein Total Protein Albumin Prealbumin Triglycerides Cholesterol LDL Cholesterol Direct HDL Cholesterol Urine pH Urine WBC (Auto) Urine Creatinine Urine Total Protein Fluid Total Protein Vancomycin Trough Rheumatoid Factor Complement C4 Miscellaneous Test Crossmatch 12/09/16 12/09/16 12/09/16 05:34 06:00 06:00 WBC 15.5 H RBC 2.87 L Hgb 8.0 L Hct 24.2 L MCV MCH MCHC RDW 17.2 H Plt Count Lymph % (Auto) [place] % (Auto) 11.6 H Lymph # [place] # 1.8 H Baso # Seg Neutrophils % 70.8 H Seg Neuts % (Manual) Lymphocytes % (Manual) Monocytes % (Manual) Eosinophils % (Manual) Basophils % (Manual) Nucleated RBC % Seg Neutrophils # 11.0 H Seg Neutrophils # Man Lymphocytes # (Manual) Monocytes # (Manual) Eosinophils # (Manual) Basophils # (Manual) PT INR Fibrinogen dRVVT Confirm Interp Factor V Activity POC ABG pH POC ABG pCO2 POC ABG pO2 ABG pO2 ABG HCO3 ABG Base Excess ABG Hemoglobin Oxyhemoglobin Sodium Potassium Chloride Carbon Dioxide BUN 51 H Creatinine Glucose 117 H POC Glucose 136 H Lactic Acid Calcium Phosphorus Magnesium Direct Bilirubin AST ALT Alkaline Phosphatase Lactate Dehydrogenase Troponin T C-Reactive Protein Total Protein Albumin Prealbumin Triglycerides Cholesterol LDL Cholesterol Direct HDL Cholesterol Urine pH Urine WBC (Auto) Urine Creatinine Urine Total Protein Fluid Total Protein Vancomycin Trough Rheumatoid Factor Complement C4 Miscellaneous Test Crossmatch 12/09/16 12/09/16 12/09/16 12:29 17:52 23:10 WBC RBC Hgb Hct MCV MCH MCHC RDW Plt Count Lymph % (Auto) [place] % (Auto) Lymph # [place] # Baso # Seg Neutrophils % Seg Neuts % (Manual) Lymphocytes % (Manual) Monocytes % (Manual) Eosinophils % (Manual) Basophils % (Manual) Nucleated RBC % Seg Neutrophils # Seg Neutrophils # Man Lymphocytes # (Manual) Monocytes # (Manual) Eosinophils # (Manual) Basophils # (Manual) PT INR Fibrinogen dRVVT Confirm Interp Factor V Activity POC ABG pH POC ABG pCO2 POC ABG pO2 ABG pO2 ABG HCO3 ABG Base Excess ABG Hemoglobin Oxyhemoglobin Sodium Potassium Chloride Carbon Dioxide BUN Creatinine Glucose POC Glucose 139 H 140 H 129 H Lactic Acid Calcium Phosphorus Magnesium Direct Bilirubin AST ALT Alkaline Phosphatase Lactate Dehydrogenase Troponin T C-Reactive Protein Total Protein Albumin Prealbumin Triglycerides Cholesterol LDL Cholesterol Direct HDL Cholesterol Urine pH Urine WBC (Auto) Urine Creatinine Urine Total Protein Fluid Total Protein Vancomycin Trough Rheumatoid Factor Complement C4 Miscellaneous Test Crossmatch 12/10/16 12/10/16 12/10/16 05:00 05:00 06:54 WBC 15.7 H RBC 2.87 L Hgb 8.2 L Hct 24.4 L MCV MCH MCHC RDW 17.2 H Plt Count Lymph % (Auto) [place] % (Auto) 8.3 H Lymph # [place] # 1.3 H Baso # Seg Neutrophils % 72.8 H Seg Neuts % (Manual) Lymphocytes % (Manual) Monocytes % (Manual) Eosinophils % (Manual) Basophils % (Manual) Nucleated RBC % Seg Neutrophils # 11.4 H Seg Neutrophils # Man Lymphocytes # (Manual) Monocytes # (Manual) Eosinophils # (Manual) Basophils # (Manual) PT INR Fibrinogen dRVVT Confirm Interp Factor V Activity POC ABG pH POC ABG pCO2 POC ABG pO2 ABG pO2 ABG HCO3 ABG Base Excess ABG Hemoglobin Oxyhemoglobin Sodium Potassium Chloride Carbon Dioxide BUN 64 H Creatinine 1.4 H Glucose 134 H POC Glucose 154 H Lactic Acid Calcium Phosphorus Magnesium Direct Bilirubin AST ALT Alkaline Phosphatase Lactate Dehydrogenase Troponin T C-Reactive Protein Total Protein Albumin Prealbumin Triglycerides Cholesterol LDL Cholesterol Direct HDL Cholesterol Urine pH Urine WBC (Auto) Urine Creatinine Urine Total Protein Fluid Total Protein Vancomycin Trough Rheumatoid Factor Complement C4 Miscellaneous Test Crossmatch 12/10/16 12/10/16 12/10/16 11:58 17:29 23:52 WBC RBC Hgb Hct MCV MCH MCHC RDW Plt Count Lymph % (Auto) [place] % (Auto) Lymph # [place] # Baso # Seg Neutrophils % Seg Neuts % (Manual) Lymphocytes % (Manual) Monocytes % (Manual) Eosinophils % (Manual) Basophils % (Manual) Nucleated RBC % Seg Neutrophils # Seg Neutrophils # Man Lymphocytes # (Manual) Monocytes # (Manual) Eosinophils # (Manual) Basophils # (Manual) PT INR Fibrinogen dRVVT Confirm Interp Factor V Activity POC ABG pH POC ABG pCO2 POC ABG pO2 ABG pO2 ABG HCO3 ABG Base Excess ABG Hemoglobin Oxyhemoglobin Sodium Potassium Chloride Carbon Dioxide BUN Creatinine Glucose POC Glucose 144 H 163 H 125 H Lactic Acid Calcium Phosphorus Magnesium Direct Bilirubin AST ALT Alkaline Phosphatase Lactate Dehydrogenase Troponin T C-Reactive Protein Total Protein Albumin Prealbumin Triglycerides Cholesterol LDL Cholesterol Direct HDL Cholesterol Urine pH Urine WBC (Auto) Urine Creatinine Urine Total Protein Fluid Total Protein Vancomycin Trough Rheumatoid Factor Complement C4 Miscellaneous Test Crossmatch 12/11/16 12/11/16 12/11/16 05:38 06:30 06:30 WBC 14.4 H RBC 2.76 L Hgb 7.7 L Hct 23.4 L MCV MCH MCHC RDW 17.2 H Plt Count Lymph % (Auto) [place] % (Auto) 8.8 H Lymph # [place] # 1.3 H Baso # Seg Neutrophils % 72.5 H Seg Neuts % (Manual) Lymphocytes % (Manual) Monocytes % (Manual) Eosinophils % (Manual) Basophils % (Manual) Nucleated RBC % Seg Neutrophils # 10.5 H Seg Neutrophils # Man Lymphocytes # (Manual) Monocytes # (Manual) Eosinophils # (Manual) Basophils # (Manual) PT INR Fibrinogen dRVVT Confirm Interp Factor V Activity POC ABG pH POC ABG pCO2 POC ABG pO2 ABG pO2 ABG HCO3 ABG Base Excess ABG Hemoglobin Oxyhemoglobin Sodium Potassium Chloride Carbon Dioxide BUN 43 H Creatinine Glucose 124 H POC Glucose 141 H Lactic Acid Calcium 8.3 L Phosphorus Magnesium 1.60 L Direct Bilirubin AST ALT Alkaline Phosphatase Lactate Dehydrogenase Troponin T C-Reactive Protein Total Protein Albumin Prealbumin Triglycerides Cholesterol LDL Cholesterol Direct HDL Cholesterol Urine pH Urine WBC (Auto) Urine Creatinine Urine Total Protein Fluid Total Protein Vancomycin Trough Rheumatoid Factor Complement C4 Miscellaneous Test Crossmatch 12/11/16 12/11/16 12/11/16 11:15 17:59 23:48 WBC RBC Hgb Hct MCV MCH MCHC RDW Plt Count Lymph % (Auto) [place] % (Auto) Lymph # [place] # Baso # Seg Neutrophils % Seg Neuts % (Manual) Lymphocytes % (Manual) Monocytes % (Manual) Eosinophils % (Manual) Basophils % (Manual) Nucleated RBC % Seg Neutrophils # Seg Neutrophils # Man Lymphocytes # (Manual) Monocytes # (Manual) Eosinophils # (Manual) Basophils # (Manual) PT INR Fibrinogen dRVVT Confirm Interp Factor V Activity POC ABG pH POC ABG pCO2 POC ABG pO2 ABG pO2 ABG HCO3 ABG Base Excess ABG Hemoglobin Oxyhemoglobin Sodium Potassium Chloride Carbon Dioxide BUN Creatinine Glucose POC Glucose 188 H 106 H 119 H Lactic Acid Calcium Phosphorus Magnesium Direct Bilirubin AST ALT Alkaline Phosphatase Lactate Dehydrogenase Troponin T C-Reactive Protein Total Protein Albumin Prealbumin Triglycerides Cholesterol LDL Cholesterol Direct HDL Cholesterol Urine pH Urine WBC (Auto) Urine Creatinine Urine Total Protein Fluid Total Protein Vancomycin Trough Rheumatoid Factor Complement C4 Miscellaneous Test Crossmatch 12/12/16 12/12/16 12/12/16 05:00 06:01 12:20 WBC 16.7 H RBC 2.87 L Hgb 8.0 L Hct 24.2 L MCV MCH MCHC RDW 17.6 H Plt Count Lymph % (Auto) [place] % (Auto) Lymph # [place] # 1.2 H Baso # Seg Neutrophils % 75.3 H Seg Neuts % (Manual) Lymphocytes % (Manual) Monocytes % (Manual) Eosinophils % (Manual) Basophils % (Manual) Nucleated RBC % Seg Neutrophils # 12.6 H Seg Neutrophils # Man Lymphocytes # (Manual) Monocytes # (Manual) Eosinophils # (Manual) Basophils # (Manual) PT INR Fibrinogen dRVVT Confirm Interp Factor V Activity POC ABG pH POC ABG pCO2 POC ABG pO2 ABG pO2 ABG HCO3 ABG Base Excess ABG Hemoglobin Oxyhemoglobin Sodium Potassium Chloride Carbon Dioxide BUN Creatinine Glucose POC Glucose 134 H 149 H Lactic Acid Calcium Phosphorus Magnesium Direct Bilirubin AST ALT Alkaline Phosphatase Lactate Dehydrogenase Troponin T C-Reactive Protein Total Protein Albumin Prealbumin Triglycerides Cholesterol LDL Cholesterol Direct HDL Cholesterol Urine pH Urine WBC (Auto) Urine Creatinine Urine Total Protein Fluid Total Protein Vancomycin Trough Rheumatoid Factor Complement C4 Miscellaneous Test Crossmatch 12/12/16 12/12/16 12/12/16 17:38 23:01 Unknown WBC RBC Hgb Hct MCV MCH MCHC RDW Plt Count Lymph % (Auto) [place] % (Auto) Lymph # [place] # Baso # Seg Neutrophils % Seg Neuts % (Manual) Lymphocytes % (Manual) Monocytes % (Manual) Eosinophils % (Manual) Basophils % (Manual) Nucleated RBC % Seg Neutrophils # Seg Neutrophils # Man Lymphocytes # (Manual) Monocytes # (Manual) Eosinophils # (Manual) Basophils # (Manual) PT INR Fibrinogen dRVVT Confirm Interp Factor V Activity POC ABG pH POC ABG pCO2 POC ABG pO2 ABG pO2 ABG HCO3 ABG Base Excess ABG Hemoglobin Oxyhemoglobin Sodium Potassium Chloride Carbon Dioxide BUN 60 H Creatinine 1.3 H Glucose 126 H POC Glucose 127 H 144 H Lactic Acid Calcium Phosphorus Magnesium Direct Bilirubin AST ALT Alkaline Phosphatase Lactate Dehydrogenase Troponin T C-Reactive Protein Total Protein Albumin Prealbumin Triglycerides Cholesterol LDL Cholesterol Direct HDL Cholesterol Urine pH Urine WBC (Auto) Urine Creatinine Urine Total Protein Fluid Total Protein Vancomycin Trough Rheumatoid Factor Complement C4 Miscellaneous Test Crossmatch 12/13/16 12/13/16 12/13/16 04:00 04:00 05:19 WBC 18.7 H RBC 2.89 L Hgb 8.3 L Hct 24.6 L MCV MCH MCHC RDW 17.5 H Plt Count Lymph % (Auto) [place] % (Auto) Lymph # [place] # 1.3 H Baso # Seg Neutrophils % 71.5 H Seg Neuts % (Manual) Lymphocytes % (Manual) Monocytes % (Manual) Eosinophils % (Manual) Basophils % (Manual) Nucleated RBC % Seg Neutrophils # 13.4 H Seg Neutrophils # Man Lymphocytes # (Manual) Monocytes # (Manual) Eosinophils # (Manual) Basophils # (Manual) PT INR Fibrinogen dRVVT Confirm Interp Factor V Activity POC ABG pH POC ABG pCO2 POC ABG pO2 ABG pO2 ABG HCO3 ABG Base Excess ABG Hemoglobin Oxyhemoglobin Sodium Potassium Chloride Carbon Dioxide BUN 73 H Creatinine 1.5 H Glucose 141 H POC Glucose 171 H Lactic Acid Calcium Phosphorus Magnesium Direct Bilirubin AST ALT Alkaline Phosphatase Lactate Dehydrogenase Troponin T C-Reactive Protein Total Protein Albumin Prealbumin Triglycerides Cholesterol LDL Cholesterol Direct HDL Cholesterol Urine pH Urine WBC (Auto) Urine Creatinine Urine Total Protein Fluid Total Protein Vancomycin Trough Rheumatoid Factor Complement C4 Miscellaneous Test Crossmatch 12/13/16 12/13/16 12/14/16 12:28 16:48 00:01 WBC RBC Hgb Hct MCV MCH MCHC RDW Plt Count Lymph % (Auto) [place] % (Auto) Lymph # [place] # Baso # Seg Neutrophils % Seg Neuts % (Manual) Lymphocytes % (Manual) Monocytes % (Manual) Eosinophils % (Manual) Basophils % (Manual) Nucleated RBC % Seg Neutrophils # Seg Neutrophils # Man Lymphocytes # (Manual) Monocytes # (Manual) Eosinophils # (Manual) Basophils # (Manual) PT INR Fibrinogen dRVVT Confirm Interp Factor V Activity POC ABG pH POC ABG pCO2 POC ABG pO2 ABG pO2 ABG HCO3 ABG Base Excess ABG Hemoglobin Oxyhemoglobin Sodium Potassium Chloride Carbon Dioxide BUN Creatinine Glucose POC Glucose 206 H 173 H 139 H Lactic Acid Calcium Phosphorus Magnesium Direct Bilirubin AST ALT Alkaline Phosphatase Lactate Dehydrogenase Troponin T C-Reactive Protein Total Protein Albumin Prealbumin Triglycerides Cholesterol LDL Cholesterol Direct HDL Cholesterol Urine pH Urine WBC (Auto) Urine Creatinine Urine Total Protein Fluid Total Protein Vancomycin Trough Rheumatoid Factor Complement C4 Miscellaneous Test Crossmatch 12/14/16 12/14/16 12/14/16 05:16 06:10 11:17 WBC RBC Hgb Hct MCV MCH MCHC RDW Plt Count Lymph % (Auto) [place] % (Auto) Lymph # [place] # Baso # Seg Neutrophils % Seg Neuts % (Manual) Lymphocytes % (Manual) Monocytes % (Manual) Eosinophils % (Manual) Basophils % (Manual) Nucleated RBC % Seg Neutrophils # Seg Neutrophils # Man Lymphocytes # (Manual) Monocytes # (Manual) Eosinophils # (Manual) Basophils # (Manual) PT INR Fibrinogen dRVVT Confirm Interp Factor V Activity POC ABG pH POC ABG pCO2 POC ABG pO2 ABG pO2 ABG HCO3 ABG Base Excess ABG Hemoglobin Oxyhemoglobin Sodium Potassium Chloride Carbon Dioxide BUN 57 H Creatinine 1.4 H Glucose 135 H POC Glucose 158 H 137 H Lactic Acid Calcium Phosphorus Magnesium Direct Bilirubin AST ALT Alkaline Phosphatase Lactate Dehydrogenase Troponin T C-Reactive Protein Total Protein Albumin Prealbumin Triglycerides Cholesterol LDL Cholesterol Direct HDL Cholesterol Urine pH Urine WBC (Auto) Urine Creatinine Urine Total Protein Fluid Total Protein Vancomycin Trough Rheumatoid Factor Complement C4 Miscellaneous Test Crossmatch 12/14/16 12/14/16 12/15/16 17:52 23:27 04:00 WBC RBC Hgb Hct MCV MCH MCHC RDW Plt Count Lymph % (Auto) [place] % (Auto) Lymph # [place] # Baso # Seg Neutrophils % Seg Neuts % (Manual) Lymphocytes % (Manual) Monocytes % (Manual) Eosinophils % (Manual) Basophils % (Manual) Nucleated RBC % Seg Neutrophils # Seg Neutrophils # Man Lymphocytes # (Manual) Monocytes # (Manual) Eosinophils # (Manual) Basophils # (Manual) PT INR Fibrinogen dRVVT Confirm Interp Factor V Activity POC ABG pH POC ABG pCO2 POC ABG pO2 ABG pO2 ABG HCO3 ABG Base Excess ABG Hemoglobin Oxyhemoglobin Sodium Potassium Chloride 97.9 L Carbon Dioxide BUN 75 H Creatinine 1.6 H Glucose 122 H POC Glucose 149 H 163 H Lactic Acid Calcium Phosphorus 5.20 H Magnesium Direct Bilirubin AST ALT Alkaline Phosphatase Lactate Dehydrogenase Troponin T C-Reactive Protein Total Protein Albumin Prealbumin Triglycerides Cholesterol LDL Cholesterol Direct HDL Cholesterol Urine pH Urine WBC (Auto) Urine Creatinine Urine Total Protein Fluid Total Protein Vancomycin Trough Rheumatoid Factor Complement C4 Miscellaneous Test Crossmatch 12/15/16 12/15/16 12/15/16 05:50 11:24 17:01 WBC RBC Hgb Hct MCV MCH MCHC RDW Plt Count Lymph % (Auto) [place] % (Auto) Lymph # [place] # Baso # Seg Neutrophils % Seg Neuts % (Manual) Lymphocytes % (Manual) Monocytes % (Manual) Eosinophils % (Manual) Basophils % (Manual) Nucleated RBC % Seg Neutrophils # Seg Neutrophils # Man Lymphocytes # (Manual) Monocytes # (Manual) Eosinophils # (Manual) Basophils # (Manual) PT INR Fibrinogen dRVVT Confirm Interp Factor V Activity POC ABG pH POC ABG pCO2 POC ABG pO2 ABG pO2 ABG HCO3 ABG Base Excess ABG Hemoglobin Oxyhemoglobin Sodium Potassium Chloride Carbon Dioxide BUN Creatinine Glucose POC Glucose 150 H 146 H 167 H Lactic Acid Calcium Phosphorus Magnesium Direct Bilirubin AST ALT Alkaline Phosphatase Lactate Dehydrogenase Troponin T C-Reactive Protein Total Protein Albumin Prealbumin Triglycerides Cholesterol LDL Cholesterol Direct HDL Cholesterol Urine pH Urine WBC (Auto) Urine Creatinine Urine Total Protein Fluid Total Protein Vancomycin Trough Rheumatoid Factor Complement C4 Miscellaneous Test Crossmatch 12/15/16 12/16/16 12/16/16 23:34 05:25 11:24 WBC RBC Hgb Hct MCV MCH MCHC RDW Plt Count Lymph % (Auto) [place] % (Auto) Lymph # [place] # Baso # Seg Neutrophils % Seg Neuts % (Manual) Lymphocytes % (Manual) Monocytes % (Manual) Eosinophils % (Manual) Basophils % (Manual) Nucleated RBC % Seg Neutrophils # Seg Neutrophils # Man Lymphocytes # (Manual) Monocytes # (Manual) Eosinophils # (Manual) Basophils # (Manual) PT INR Fibrinogen dRVVT Confirm Interp Factor V Activity POC ABG pH POC ABG pCO2 POC ABG pO2 ABG pO2 ABG HCO3 ABG Base Excess ABG Hemoglobin Oxyhemoglobin Sodium Potassium Chloride Carbon Dioxide BUN Creatinine Glucose POC Glucose 127 H 139 H 165 H Lactic Acid Calcium Phosphorus Magnesium Direct Bilirubin AST ALT Alkaline Phosphatase Lactate Dehydrogenase Troponin T C-Reactive Protein Total Protein Albumin Prealbumin Triglycerides Cholesterol LDL Cholesterol Direct HDL Cholesterol Urine pH Urine WBC (Auto) Urine Creatinine Urine Total Protein Fluid Total Protein Vancomycin Trough Rheumatoid Factor Complement C4 Miscellaneous Test Crossmatch 12/16/16 12/16/16 12/16/16 15:30 16:25 17:31 WBC 17.8 H RBC 2.38 L Hgb 6.4 L Hct 20.3 L MCV MCH 27 L MCHC RDW 17.4 H Plt Count Lymph % (Auto) [place] % (Auto) Lymph # [place] # Baso # Seg Neutrophils % Seg Neuts % (Manual) Lymphocytes % (Manual) Monocytes % (Manual) 10.0 H Eosinophils % (Manual) Basophils % (Manual) Nucleated RBC % Seg Neutrophils # Seg Neutrophils # Man 8.5 H Lymphocytes # (Manual) Monocytes # (Manual) 1.8 H Eosinophils # (Manual) Basophils # (Manual) PT INR Fibrinogen dRVVT Confirm Interp Factor V Activity POC ABG pH POC ABG pCO2 POC ABG pO2 ABG pO2 ABG HCO3 ABG Base Excess ABG Hemoglobin Oxyhemoglobin Sodium Potassium Chloride Carbon Dioxide BUN Creatinine Glucose POC Glucose 176 H Lactic Acid Calcium Phosphorus Magnesium Direct Bilirubin AST ALT Alkaline Phosphatase Lactate Dehydrogenase Troponin T C-Reactive Protein Total Protein Albumin Prealbumin Triglycerides Cholesterol LDL Cholesterol Direct HDL Cholesterol Urine pH Urine WBC (Auto) Urine Creatinine Urine Total Protein Fluid Total Protein Vancomycin Trough Rheumatoid Factor Complement C4 Miscellaneous Test Crossmatch See Detail 12/17/16 12/17/16 12/17/16 00:14 04:00 05:00 WBC 20.0 H RBC 2.99 L Hgb 8.5 L Hct 25.7 L MCV MCH MCHC RDW 17.2 H Plt Count Lymph % (Auto) [place] % (Auto) Lymph # [place] # Baso # Seg Neutrophils % Seg Neuts % (Manual) Lymphocytes % (Manual) Monocytes % (Manual) Eosinophils % (Manual) Basophils % (Manual) Nucleated RBC % Seg Neutrophils # Seg Neutrophils # Man Lymphocytes # (Manual) Monocytes # (Manual) Eosinophils # (Manual) Basophils # (Manual) PT INR Fibrinogen dRVVT Confirm Interp Factor V Activity POC ABG pH POC ABG pCO2 POC ABG pO2 ABG pO2 ABG HCO3 ABG Base Excess ABG Hemoglobin Oxyhemoglobin Sodium Potassium Chloride 97.7 L Carbon Dioxide BUN 73 H Creatinine 1.7 H Glucose 136 H POC Glucose 148 H Lactic Acid Calcium Phosphorus 2.20 L Magnesium 2.70 H Direct Bilirubin AST ALT Alkaline Phosphatase Lactate Dehydrogenase Troponin T C-Reactive Protein Total Protein Albumin Prealbumin Triglycerides Cholesterol LDL Cholesterol Direct HDL Cholesterol Urine pH Urine WBC (Auto) Urine Creatinine Urine Total Protein Fluid Total Protein Vancomycin Trough Rheumatoid Factor Complement C4 Miscellaneous Test Crossmatch 12/17/16 12/17/16 12/17/16 05:39 12:50 16:32 WBC RBC Hgb Hct MCV MCH MCHC RDW Plt Count Lymph % (Auto) [place] % (Auto) Lymph # [place] # Baso # Seg Neutrophils % Seg Neuts % (Manual) Lymphocytes % (Manual) Monocytes % (Manual) Eosinophils % (Manual) Basophils % (Manual) Nucleated RBC % Seg Neutrophils # Seg Neutrophils # Man Lymphocytes # (Manual) Monocytes # (Manual) Eosinophils # (Manual) Basophils # (Manual) PT INR Fibrinogen dRVVT Confirm Interp Factor V Activity POC ABG pH POC ABG pCO2 POC ABG pO2 ABG pO2 ABG HCO3 ABG Base Excess ABG Hemoglobin Oxyhemoglobin Sodium Potassium Chloride Carbon Dioxide BUN Creatinine Glucose POC Glucose 162 H 146 H 169 H Lactic Acid Calcium Phosphorus Magnesium Direct Bilirubin AST ALT Alkaline Phosphatase Lactate Dehydrogenase Troponin T C-Reactive Protein Total Protein Albumin Prealbumin Triglycerides Cholesterol LDL Cholesterol Direct HDL Cholesterol Urine pH Urine WBC (Auto) Urine Creatinine Urine Total Protein Fluid Total Protein Vancomycin Trough Rheumatoid Factor Complement C4 Miscellaneous Test Crossmatch 12/17/16 12/18/16 12/18/16 23:57 05:00 05:32 WBC RBC Hgb Hct MCV MCH MCHC RDW Plt Count Lymph % (Auto) [place] % (Auto) Lymph # [place] # Baso # Seg Neutrophils % Seg Neuts % (Manual) Lymphocytes % (Manual) Monocytes % (Manual) Eosinophils % (Manual) Basophils % (Manual) Nucleated RBC % Seg Neutrophils # Seg Neutrophils # Man Lymphocytes # (Manual) Monocytes # (Manual) Eosinophils # (Manual) Basophils # (Manual) PT INR Fibrinogen dRVVT Confirm Interp Factor V Activity POC ABG pH POC ABG pCO2 POC ABG pO2 ABG pO2 ABG HCO3 ABG Base Excess ABG Hemoglobin Oxyhemoglobin Sodium Potassium Chloride 97.0 L Carbon Dioxide BUN 63 H Creatinine 1.4 H Glucose 174 H POC Glucose 145 H 201 H Lactic Acid Calcium Phosphorus 1.70 L D Magnesium Direct Bilirubin AST ALT Alkaline Phosphatase 257 H Lactate Dehydrogenase Troponin T C-Reactive Protein Total Protein 5.9 L Albumin 1.8 L Prealbumin Triglycerides Cholesterol LDL Cholesterol Direct HDL Cholesterol Urine pH Urine WBC (Auto) Urine Creatinine Urine Total Protein Fluid Total Protein Vancomycin Trough Rheumatoid Factor Complement C4 Miscellaneous Test Crossmatch 12/18/16 12/18/16 12/18/16 11:43 16:52 23:52 WBC RBC Hgb Hct MCV MCH MCHC RDW Plt Count Lymph % (Auto) [place] % (Auto) Lymph # [place] # Baso # Seg Neutrophils % Seg Neuts % (Manual) Lymphocytes % (Manual) Monocytes % (Manual) Eosinophils % (Manual) Basophils % (Manual) Nucleated RBC % Seg Neutrophils # Seg Neutrophils # Man Lymphocytes # (Manual) Monocytes # (Manual) Eosinophils # (Manual) Basophils # (Manual) PT INR Fibrinogen dRVVT Confirm Interp Factor V Activity POC ABG pH POC ABG pCO2 POC ABG pO2 ABG pO2 ABG HCO3 ABG Base Excess ABG Hemoglobin Oxyhemoglobin Sodium Potassium Chloride Carbon Dioxide BUN Creatinine Glucose POC Glucose 177 H 110 H 162 H Lactic Acid Calcium Phosphorus Magnesium Direct Bilirubin AST ALT Alkaline Phosphatase Lactate Dehydrogenase Troponin T C-Reactive Protein Total Protein Albumin Prealbumin Triglycerides Cholesterol LDL Cholesterol Direct HDL Cholesterol Urine pH Urine WBC (Auto) Urine Creatinine Urine Total Protein Fluid Total Protein Vancomycin Trough Rheumatoid Factor Complement C4 Miscellaneous Test Crossmatch 12/19/16 12/19/16 12/19/16 05:02 05:24 09:30 WBC 20.1 H RBC 2.73 L Hgb 7.6 L Hct 23.6 L MCV MCH MCHC RDW 17.6 H Plt Count Lymph % (Auto) [place] % (Auto) Lymph # [place] # Baso # Seg Neutrophils % Seg Neuts % (Manual) Lymphocytes % (Manual) 13.0 L Monocytes % (Manual) Eosinophils % (Manual) Basophils % (Manual) Nucleated RBC % 1.0 H Seg Neutrophils # Seg Neutrophils # Man 12.9 H Lymphocytes # (Manual) Monocytes # (Manual) 1.4 H Eosinophils # (Manual) Basophils # (Manual) 0.2 H PT INR Fibrinogen dRVVT Confirm Interp Factor V Activity POC ABG pH POC ABG pCO2 POC ABG pO2 ABG pO2 ABG HCO3 ABG Base Excess ABG Hemoglobin Oxyhemoglobin Sodium Potassium Chloride 97.8 L Carbon Dioxide BUN 84 H Creatinine 1.6 H Glucose 133 H POC Glucose 134 H Lactic Acid Calcium Phosphorus Magnesium Direct Bilirubin AST ALT Alkaline Phosphatase Lactate Dehydrogenase Troponin T C-Reactive Protein Total Protein Albumin Prealbumin Triglycerides Cholesterol LDL Cholesterol Direct HDL Cholesterol Urine pH Urine WBC (Auto) Urine Creatinine Urine Total Protein Fluid Total Protein Vancomycin Trough Rheumatoid Factor Complement C4 Miscellaneous Test Crossmatch 12/19/16 12/19/16 12/19/16 09:36 11:12 18:29 WBC RBC Hgb Hct MCV MCH MCHC RDW Plt Count Lymph % (Auto) [place] % (Auto) Lymph # [place] # Baso # Seg Neutrophils % Seg Neuts % (Manual) Lymphocytes % (Manual) Monocytes % (Manual) Eosinophils % (Manual) Basophils % (Manual) Nucleated RBC % Seg Neutrophils # Seg Neutrophils # Man Lymphocytes # (Manual) Monocytes # (Manual) Eosinophils # (Manual) Basophils # (Manual) PT INR Fibrinogen dRVVT Confirm Interp Factor V Activity POC ABG pH 7.503 H POC ABG pCO2 30.1 L POC ABG pO2 ABG pO2 ABG HCO3 ABG Base Excess ABG Hemoglobin Oxyhemoglobin Sodium Potassium Chloride Carbon Dioxide BUN Creatinine Glucose POC Glucose 138 H 156 H Lactic Acid Calcium Phosphorus Magnesium Direct Bilirubin AST ALT Alkaline Phosphatase Lactate Dehydrogenase Troponin T C-Reactive Protein Total Protein Albumin Prealbumin Triglycerides Cholesterol LDL Cholesterol Direct HDL Cholesterol Urine pH Urine WBC (Auto) Urine Creatinine Urine Total Protein Fluid Total Protein Vancomycin Trough Rheumatoid Factor Complement C4 Miscellaneous Test Crossmatch 12/20/16 12/20/16 12/20/16 00:03 06:17 07:07 WBC RBC Hgb Hct MCV MCH MCHC RDW Plt Count Lymph % (Auto) [place] % (Auto) Lymph # [place] # Baso # Seg Neutrophils % Seg Neuts % (Manual) Lymphocytes % (Manual) Monocytes % (Manual) Eosinophils % (Manual) Basophils % (Manual) Nucleated RBC % Seg Neutrophils # Seg Neutrophils # Man Lymphocytes # (Manual) Monocytes # (Manual) Eosinophils # (Manual) Basophils # (Manual) PT INR Fibrinogen dRVVT Confirm Interp Factor V Activity POC ABG pH POC ABG pCO2 POC ABG pO2 ABG pO2 ABG HCO3 ABG Base Excess ABG Hemoglobin Oxyhemoglobin Sodium Potassium Chloride 97.1 L Carbon Dioxide 20 L BUN 97 H Creatinine 1.8 H Glucose 153 H POC Glucose 152 H 175 H Lactic Acid Calcium Phosphorus Magnesium Direct Bilirubin AST ALT Alkaline Phosphatase Lactate Dehydrogenase Troponin T C-Reactive Protein Total Protein Albumin Prealbumin Triglycerides Cholesterol LDL Cholesterol Direct HDL Cholesterol Urine pH Urine WBC (Auto) Urine Creatinine Urine Total Protein Fluid Total Protein Vancomycin Trough Rheumatoid Factor Complement C4 Miscellaneous Test Crossmatch 12/20/16 12/20/16 12/20/16 12:00 17:42 23:53 WBC RBC Hgb Hct MCV MCH MCHC RDW Plt Count Lymph % (Auto) [place] % (Auto) Lymph # [place] # Baso # Seg Neutrophils % Seg Neuts % (Manual) Lymphocytes % (Manual) Monocytes % (Manual) Eosinophils % (Manual) Basophils % (Manual) Nucleated RBC % Seg Neutrophils # Seg Neutrophils # Man Lymphocytes # (Manual) Monocytes # (Manual) Eosinophils # (Manual) Basophils # (Manual) PT INR Fibrinogen dRVVT Confirm Interp Factor V Activity POC ABG pH POC ABG pCO2 POC ABG pO2 ABG pO2 ABG HCO3 ABG Base Excess ABG Hemoglobin Oxyhemoglobin Sodium Potassium Chloride Carbon Dioxide BUN Creatinine Glucose POC Glucose 141 H 156 H 132 H Lactic Acid Calcium Phosphorus Magnesium Direct Bilirubin AST ALT Alkaline Phosphatase Lactate Dehydrogenase Troponin T C-Reactive Protein Total Protein Albumin Prealbumin Triglycerides Cholesterol LDL Cholesterol Direct HDL Cholesterol Urine pH Urine WBC (Auto) Urine Creatinine Urine Total Protein Fluid Total Protein Vancomycin Trough Rheumatoid Factor Complement C4 Miscellaneous Test Crossmatch 12/21/16 12/21/16 12/21/16 05:49 08:50 12:19 WBC RBC Hgb Hct MCV MCH MCHC RDW Plt Count Lymph % (Auto) [place] % (Auto) Lymph # [place] # Baso # Seg Neutrophils % Seg Neuts % (Manual) Lymphocytes % (Manual) Monocytes % (Manual) Eosinophils % (Manual) Basophils % (Manual) Nucleated RBC % Seg Neutrophils # Seg Neutrophils # Man Lymphocytes # (Manual) Monocytes # (Manual) Eosinophils # (Manual) Basophils # (Manual) PT INR Fibrinogen dRVVT Confirm Interp Factor V Activity POC ABG pH POC ABG pCO2 POC ABG pO2 ABG pO2 ABG HCO3 ABG Base Excess ABG Hemoglobin Oxyhemoglobin Sodium Potassium 5.2 H D Chloride Carbon Dioxide BUN 63 H Creatinine Glucose 122 H POC Glucose 132 H 136 H Lactic Acid Calcium 8.3 L Phosphorus Magnesium Direct Bilirubin AST ALT Alkaline Phosphatase Lactate Dehydrogenase Troponin T C-Reactive Protein Total Protein Albumin Prealbumin Triglycerides Cholesterol LDL Cholesterol Direct HDL Cholesterol Urine pH Urine WBC (Auto) Urine Creatinine Urine Total Protein Fluid Total Protein Vancomycin Trough Rheumatoid Factor Complement C4 Miscellaneous Test Crossmatch 12/21/16 12/21/16 12/22/16 17:22 23:58 05:49 WBC RBC Hgb Hct MCV MCH MCHC RDW Plt Count Lymph % (Auto) [place] % (Auto) Lymph # [place] # Baso # Seg Neutrophils % Seg Neuts % (Manual) Lymphocytes % (Manual) Monocytes % (Manual) Eosinophils % (Manual) Basophils % (Manual) Nucleated RBC % Seg Neutrophils # Seg Neutrophils # Man Lymphocytes # (Manual) Monocytes # (Manual) Eosinophils # (Manual) Basophils # (Manual) PT INR Fibrinogen dRVVT Confirm Interp Factor V Activity POC ABG pH POC ABG pCO2 POC ABG pO2 ABG pO2 ABG HCO3 ABG Base Excess ABG Hemoglobin Oxyhemoglobin Sodium Potassium Chloride Carbon Dioxide BUN Creatinine Glucose POC Glucose 135 H 149 H 140 H Lactic Acid Calcium Phosphorus Magnesium Direct Bilirubin AST ALT Alkaline Phosphatase Lactate Dehydrogenase Troponin T C-Reactive Protein Total Protein Albumin Prealbumin Triglycerides Cholesterol LDL Cholesterol Direct HDL Cholesterol Urine pH Urine WBC (Auto) Urine Creatinine Urine Total Protein Fluid Total Protein Vancomycin Trough Rheumatoid Factor Complement C4 Miscellaneous Test Crossmatch 12/22/16 12/22/16 12/22/16 06:10 11:17 17:31 WBC RBC Hgb Hct MCV MCH MCHC RDW Plt Count Lymph % (Auto) [place] % (Auto) Lymph # [place] # Baso # Seg Neutrophils % Seg Neuts % (Manual) Lymphocytes % (Manual) Monocytes % (Manual) Eosinophils % (Manual) Basophils % (Manual) Nucleated RBC % Seg Neutrophils # Seg Neutrophils # Man Lymphocytes # (Manual) Monocytes # (Manual) Eosinophils # (Manual) Basophils # (Manual) PT INR Fibrinogen dRVVT Confirm Interp Factor V Activity POC ABG pH POC ABG pCO2 POC ABG pO2 ABG pO2 ABG HCO3 ABG Base Excess ABG Hemoglobin Oxyhemoglobin Sodium Potassium Chloride Carbon Dioxide BUN 76 H Creatinine 1.5 H Glucose 241 H POC Glucose 193 H 148 H Lactic Acid Calcium Phosphorus Magnesium Direct Bilirubin AST ALT Alkaline Phosphatase Lactate Dehydrogenase Troponin T C-Reactive Protein Total Protein Albumin Prealbumin Triglycerides Cholesterol LDL Cholesterol Direct HDL Cholesterol Urine pH Urine WBC (Auto) Urine Creatinine Urine Total Protein Fluid Total Protein Vancomycin Trough Rheumatoid Factor Complement C4 Miscellaneous Test Crossmatch 12/22/16 12/23/16 12/23/16 23:58 05:00 05:26 WBC RBC Hgb Hct MCV MCH MCHC RDW Plt Count Lymph % (Auto) [place] % (Auto) Lymph # [place] # Baso # Seg Neutrophils % Seg Neuts % (Manual) Lymphocytes % (Manual) Monocytes % (Manual) Eosinophils % (Manual) Basophils % (Manual) Nucleated RBC % Seg Neutrophils # Seg Neutrophils # Man Lymphocytes # (Manual) Monocytes # (Manual) Eosinophils # (Manual) Basophils # (Manual) PT INR Fibrinogen dRVVT Confirm Interp Factor V Activity POC ABG pH POC ABG pCO2 POC ABG pO2 ABG pO2 ABG HCO3 ABG Base Excess ABG Hemoglobin Oxyhemoglobin Sodium Potassium Chloride Carbon Dioxide BUN 49 H Creatinine Glucose 143 H POC Glucose 165 H 154 H Lactic Acid Calcium 8.2 L Phosphorus Magnesium 1.60 L Direct Bilirubin AST ALT Alkaline Phosphatase Lactate Dehydrogenase Troponin T C-Reactive Protein Total Protein Albumin Prealbumin Triglycerides Cholesterol LDL Cholesterol Direct HDL Cholesterol Urine pH Urine WBC (Auto) Urine Creatinine Urine Total Protein Fluid Total Protein Vancomycin Trough Rheumatoid Factor Complement C4 Miscellaneous Test Crossmatch 12/23/16 12/23/16 12/24/16 12:35 17:01 00:01 WBC RBC Hgb Hct MCV MCH MCHC RDW Plt Count Lymph % (Auto) [place] % (Auto) Lymph # [place] # Baso # Seg Neutrophils % Seg Neuts % (Manual) Lymphocytes % (Manual) Monocytes % (Manual) Eosinophils % (Manual) Basophils % (Manual) Nucleated RBC % Seg Neutrophils # Seg Neutrophils # Man Lymphocytes # (Manual) Monocytes # (Manual) Eosinophils # (Manual) Basophils # (Manual) PT INR Fibrinogen dRVVT Confirm Interp Factor V Activity POC ABG pH POC ABG pCO2 POC ABG pO2 ABG pO2 ABG HCO3 ABG Base Excess ABG Hemoglobin Oxyhemoglobin Sodium Potassium Chloride Carbon Dioxide BUN Creatinine Glucose POC Glucose 164 H 149 H 135 H Lactic Acid Calcium Phosphorus Magnesium Direct Bilirubin AST ALT Alkaline Phosphatase Lactate Dehydrogenase Troponin T C-Reactive Protein Total Protein Albumin Prealbumin Triglycerides Cholesterol LDL Cholesterol Direct HDL Cholesterol Urine pH Urine WBC (Auto) Urine Creatinine Urine Total Protein Fluid Total Protein Vancomycin Trough Rheumatoid Factor Complement C4 Miscellaneous Test Crossmatch 12/24/16 12/24/16 12/24/16 05:41 07:01 11:38 WBC RBC Hgb Hct MCV MCH MCHC RDW Plt Count Lymph % (Auto) [place] % (Auto) Lymph # [place] # Baso # Seg Neutrophils % Seg Neuts % (Manual) Lymphocytes % (Manual) Monocytes % (Manual) Eosinophils % (Manual) Basophils % (Manual) Nucleated RBC % Seg Neutrophils # Seg Neutrophils # Man Lymphocytes # (Manual) Monocytes # (Manual) Eosinophils # (Manual) Basophils # (Manual) PT INR Fibrinogen dRVVT Confirm Interp Factor V Activity POC ABG pH POC ABG pCO2 POC ABG pO2 ABG pO2 ABG HCO3 ABG Base Excess ABG Hemoglobin Oxyhemoglobin Sodium Potassium Chloride Carbon Dioxide BUN 72 H Creatinine 1.3 H Glucose 130 H POC Glucose 132 H 156 H Lactic Acid Calcium 8.2 L Phosphorus Magnesium Direct Bilirubin AST ALT Alkaline Phosphatase Lactate Dehydrogenase Troponin T C-Reactive Protein Total Protein Albumin Prealbumin Triglycerides Cholesterol LDL Cholesterol Direct HDL Cholesterol Urine pH Urine WBC (Auto) Urine Creatinine Urine Total Protein Fluid Total Protein Vancomycin Trough Rheumatoid Factor Complement C4 Miscellaneous Test Crossmatch 12/24/16 12/25/16 12/25/16 17:53 00:23 05:45 WBC RBC Hgb Hct MCV MCH MCHC RDW Plt Count Lymph % (Auto) [place] % (Auto) Lymph # [place] # Baso # Seg Neutrophils % Seg Neuts % (Manual) Lymphocytes % (Manual) Monocytes % (Manual) Eosinophils % (Manual) Basophils % (Manual) Nucleated RBC % Seg Neutrophils # Seg Neutrophils # Man Lymphocytes # (Manual) Monocytes # (Manual) Eosinophils # (Manual) Basophils # (Manual) PT INR Fibrinogen dRVVT Confirm Interp Factor V Activity POC ABG pH POC ABG pCO2 POC ABG pO2 ABG pO2 ABG HCO3 ABG Base Excess ABG Hemoglobin Oxyhemoglobin Sodium 146 H Potassium Chloride Carbon Dioxide BUN 51 H Creatinine Glucose 109 H POC Glucose 169 H 117 H Lactic Acid Calcium Phosphorus Magnesium Direct Bilirubin AST ALT Alkaline Phosphatase Lactate Dehydrogenase Troponin T C-Reactive Protein Total Protein Albumin Prealbumin Triglycerides Cholesterol LDL Cholesterol Direct HDL Cholesterol Urine pH Urine WBC (Auto) Urine Creatinine Urine Total Protein Fluid Total Protein Vancomycin Trough Rheumatoid Factor Complement C4 Miscellaneous Test Crossmatch 12/25/16 06:43 WBC RBC Hgb Hct MCV MCH MCHC RDW Plt Count Lymph % (Auto) [place] % (Auto) Lymph # [place] # Baso # Seg Neutrophils % Seg Neuts % (Manual) Lymphocytes % (Manual) Monocytes % (Manual) Eosinophils % (Manual) Basophils % (Manual) Nucleated RBC % Seg Neutrophils # Seg Neutrophils # Man Lymphocytes # (Manual) Monocytes # (Manual) Eosinophils # (Manual) Basophils # (Manual) PT INR Fibrinogen dRVVT Confirm Interp Factor V Activity POC ABG pH POC ABG pCO2 POC ABG pO2 ABG pO2 ABG HCO3 ABG Base Excess ABG Hemoglobin Oxyhemoglobin Sodium Potassium Chloride Carbon Dioxide BUN Creatinine Glucose POC Glucose 117 H Lactic Acid Calcium Phosphorus Magnesium Direct Bilirubin AST ALT Alkaline Phosphatase Lactate Dehydrogenase Troponin T C-Reactive Protein Total Protein Albumin Prealbumin Triglycerides Cholesterol LDL Cholesterol Direct HDL Cholesterol Urine pH Urine WBC (Auto) Urine Creatinine Urine Total Protein Fluid Total Protein Vancomycin Trough Rheumatoid Factor Complement C4 Miscellaneous Test Crossmatch Allied health notes reviewed: RT
--- NOTE | 2016-12-25 10:34 | Progress Note ---
Subjective Principal diagnosis: Acute resp failure on MVS; S/P Acute CVA; Acute Encephalopathy; JUANITA Interval history: Patient was seen today for follow-up on multiple renal-related issues she is resting comfortably in bed Events of 24 hours, interdisciplinary notes were also reviewed Lab results were reviewed Social history: Reviewed Medication: Reviewed Family history: Reviewed Allergies: Reviewed Physical examination General; no acute distress HEENT: Mild pallor no icterus oral mucosa moist Neck: Supple soft no jugular venous distention Chest: Bilateral clear to auscultation anteriorly posteriorly a few faint basilar crackles at the lung bases no wheezes Cardiovascular: S1-S2 heart no S3-S4 Abdomen: Soft nontender no voluntary guarding rigidity rebound no organomegaly no masses no suprapubic fullness no CVA tenderness Extremity: Minimal edema dry skin no tenderness in the Area Derm: Dry skin Assessment and plan Acute renal failure patient is currently dialysis dependent 3 times a week which she will continue with Respiratory failure: Status remains unchanged Anoxic brain injury: Currently being followed by the primary team Monitor dialysis related labs/labile hypertension currently much better controlled Overall prognosis is guarded to poor We'll continue to follow make recommendation from renal standpoint We'll continue to follow and make recommendation from renal standpoint Objective - Vital Signs Vital signs: Vital Signs - 12hr 12/24/16 12/25/16 12/25/16 23:46 00:00 00:16 Temperature 97.9 F Pulse Rate 92 H 90 86 Pulse Rate [ Anterior Bilateral Throughout] Pulse Rate [ 90 From Monitor] Pulse Rate [ Left Dorsalis Pedis] Respiratory 23 23 26 H Rate Respiratory Rate [Anterior Bilateral Throughout] Blood Pressure 110/62 111/61 111/63 O2 Sat by Pulse 100 99 99 Oximetry O2 Sat by Pulse Oximetry [ Assessment] 12/25/16 12/25/16 12/25/16 00:30 00:46 01:00 EST Temperature Pulse Rate 85 83 75 Pulse Rate [ Anterior Bilateral Throughout] Pulse Rate [ From Monitor] Pulse Rate [ Left Dorsalis Pedis] Respiratory 20 22 15 Rate Respiratory Rate [Anterior Bilateral Throughout] Blood Pressure 107/61 101/55 96/52 O2 Sat by Pulse 99 98 100 Oximetry O2 Sat by Pulse Oximetry [ Assessment] 12/25/16 12/25/16 12/25/16 01:16 EST 01:30 EST 01:46 EST Temperature Pulse Rate 80 78 77 Pulse Rate [ Anterior Bilateral Throughout] Pulse Rate [ From Monitor] Pulse Rate [ Left Dorsalis Pedis] Respiratory 17 15 15 Rate Respiratory Rate [Anterior Bilateral Throughout] Blood Pressure 92/47 108/59 102/53 O2 Sat by Pulse 100 100 100 Oximetry O2 Sat by Pulse Oximetry [ Assessment] 12/25/16 12/25/16 12/25/16 01:54 EST 02:00 02:16 Temperature Pulse Rate 75 76 Pulse Rate [ 76 Anterior Bilateral Throughout] Pulse Rate [ From Monitor] Pulse Rate [ Left Dorsalis Pedis] Respiratory 12 14 Rate Respiratory 14 Rate [Anterior Bilateral Throughout] Blood Pressure 91/49 95/49 O2 Sat by Pulse 99 99 Oximetry O2 Sat by Pulse Oximetry [ Assessment] 12/25/16 12/25/16 12/25/16 02:30 02:46 03:00 Temperature Pulse Rate 76 76 76 Pulse Rate [ Anterior Bilateral Throughout] Pulse Rate [ From Monitor] Pulse Rate [ Left Dorsalis Pedis] Respiratory 14 15 15 Rate Respiratory Rate [Anterior Bilateral Throughout] Blood Pressure 89/47 99/49 101/53 O2 Sat by Pulse 99 99 99 Oximetry O2 Sat by Pulse Oximetry [ Assessment] 12/25/16 12/25/16 12/25/16 03:16 03:30 03:46 Temperature Pulse Rate 80 79 78 Pulse Rate [ Anterior Bilateral Throughout] Pulse Rate [ From Monitor] Pulse Rate [ Left Dorsalis Pedis] Respiratory 12 13 13 Rate Respiratory Rate [Anterior Bilateral Throughout] Blood Pressure 103/58 110/61 106/59 O2 Sat by Pulse 100 99 100 Oximetry O2 Sat by Pulse Oximetry [ Assessment] 12/25/16 12/25/16 12/25/16 04:00 04:04 04:16 Temperature 97.1 F L Pulse Rate 79 80 78 Pulse Rate [ Anterior Bilateral Throughout] Pulse Rate [ From Monitor] Pulse Rate [ 79 Left Dorsalis Pedis] Respiratory 13 15 Rate Respiratory Rate [Anterior Bilateral Throughout] Blood Pressure 110/66 110/66 105/58 O2 Sat by Pulse 100 99 99 Oximetry O2 Sat by Pulse Oximetry [ Assessment] 12/25/16 12/25/16 12/25/16 04:30 04:46 05:00 Temperature Pulse Rate 88 89 90 Pulse Rate [ Anterior Bilateral Throughout] Pulse Rate [ From Monitor] Pulse Rate [ Left Dorsalis Pedis] Respiratory 19 24 20 Rate Respiratory Rate [Anterior Bilateral Throughout] Blood Pressure 125/73 116/68 112/69 O2 Sat by Pulse 99 98 93 Oximetry O2 Sat by Pulse Oximetry [ Assessment] 12/25/16 12/25/16 12/25/16 05:15 05:22 05:31 Temperature Pulse Rate 93 H 92 H 91 H Pulse Rate [ Anterior Bilateral Throughout] Pulse Rate [ From Monitor] Pulse Rate [ Left Dorsalis Pedis] Respiratory 15 22 Rate Respiratory Rate [Anterior Bilateral Throughout] Blood Pressure 115/66 114/63 120/70 O2 Sat by Pulse 99 99 Oximetry O2 Sat by Pulse Oximetry [ Assessment] 12/25/16 12/25/16 12/25/16 05:45 06:01 06:15 Temperature Pulse Rate 92 H 92 H 96 H Pulse Rate [ Anterior Bilateral Throughout] Pulse Rate [ From Monitor] Pulse Rate [ Left Dorsalis Pedis] Respiratory 22 20 20 Rate Respiratory Rate [Anterior Bilateral Throughout] Blood Pressure 130/70 111/60 114/65 O2 Sat by Pulse 99 99 100 Oximetry O2 Sat by Pulse Oximetry [ Assessment] 12/25/16 12/25/16 12/25/16 06:31 06:45 07:01 Temperature Pulse Rate 94 H 96 H 95 H Pulse Rate [ Anterior Bilateral Throughout] Pulse Rate [ From Monitor] Pulse Rate [ Left Dorsalis Pedis] Respiratory 14 19 17 Rate Respiratory Rate [Anterior Bilateral Throughout] Blood Pressure 116/69 116/68 119/75 O2 Sat by Pulse 99 99 99 Oximetry O2 Sat by Pulse Oximetry [ Assessment] 12/25/16 12/25/16 12/25/16 07:14 07:15 07:17 Temperature Pulse Rate 97 H 98 H Pulse Rate [ Anterior Bilateral Throughout] Pulse Rate [ From Monitor] Pulse Rate [ Left Dorsalis Pedis] Respiratory 19 Rate Respiratory Rate [Anterior Bilateral Throughout] Blood Pressure 125/72 125/72 O2 Sat by Pulse 99 99 Oximetry O2 Sat by Pulse 99 Oximetry [ Assessment] 12/25/16 12/25/16 12/25/16 07:23 07:30 07:31 Temperature Pulse Rate 99 H Pulse Rate [ 101 H 100 H Anterior Bilateral Throughout] Pulse Rate [ From Monitor] Pulse Rate [ Left Dorsalis Pedis] Respiratory 12 Rate Respiratory 23 12 Rate [Anterior Bilateral Throughout] Blood Pressure 119/64 O2 Sat by Pulse 98 Oximetry O2 Sat by Pulse Oximetry [ Assessment] 12/25/16 12/25/16 12/25/16 07:35 07:45 07:51 Temperature 98.5 F Pulse Rate 101 H Pulse Rate [ Anterior Bilateral Throughout] Pulse Rate [ From Monitor] Pulse Rate [ Left Dorsalis Pedis] Respiratory 22 Rate Respiratory Rate [Anterior Bilateral Throughout] Blood Pressure 120/64 O2 Sat by Pulse 99 97 Oximetry O2 Sat by Pulse Oximetry [ Assessment] 12/25/16 12/25/16 12/25/16 08:01 08:15 08:31 Temperature Pulse Rate 103 H 101 H 103 H Pulse Rate [ Anterior Bilateral Throughout] Pulse Rate [ From Monitor] Pulse Rate [ Left Dorsalis Pedis] Respiratory 42 H 41 H 10 L Rate Respiratory Rate [Anterior Bilateral Throughout] Blood Pressure 125/66 115/61 122/66 O2 Sat by Pulse 97 96 96 Oximetry O2 Sat by Pulse Oximetry [ Assessment] 12/25/16 12/25/16 12/25/16 08:45 09:01 09:15 Temperature Pulse Rate 105 H 102 H 104 H Pulse Rate [ Anterior Bilateral Throughout] Pulse Rate [ From Monitor] Pulse Rate [ Left Dorsalis Pedis] Respiratory 43 H 45 H 29 H Rate Respiratory Rate [Anterior Bilateral Throughout] Blood Pressure 125/66 122/63 125/65 O2 Sat by Pulse 96 89 89 Oximetry O2 Sat by Pulse Oximetry [ Assessment] 12/25/16 12/25/16 12/25/16 09:20 09:31 09:45 Temperature Pulse Rate 108 H 112 H Pulse Rate [ Anterior Bilateral Throughout] Pulse Rate [ 111 H From Monitor] Pulse Rate [ Left Dorsalis Pedis] Respiratory 44 H 49 H 56 H Rate Respiratory Rate [Anterior Bilateral Throughout] Blood Pressure 129/62 131/70 O2 Sat by Pulse 93 93 93 Oximetry O2 Sat by Pulse Oximetry [ Assessment] 12/25/16 10:01 Temperature Pulse Rate 106 H Pulse Rate [ Anterior Bilateral Throughout] Pulse Rate [ From Monitor] Pulse Rate [ Left Dorsalis Pedis] Respiratory 51 H Rate Respiratory Rate [Anterior Bilateral Throughout] Blood Pressure 114/62 O2 Sat by Pulse 93 Oximetry O2 Sat by Pulse Oximetry [ Assessment] - Lab 12/19/16 05:02 12/25/16 05:45 Most recent lab results ABG pH 7.450 pH Units (7.350-7.450) 12/05/16 Unknown ABG pCO2 29.6 mm Hg 12/05/16 Unknown ABG pO2 75.2 mm Hg (80.0-90.0) L 12/05/16 Unknown ABG HCO3 20.1 mmol/L (20.0-26.0) 12/05/16 Unknown ABG O2 Saturation 96.8 % (95.0-99.0) 12/05/16 Unknown Calcium 9.0 mg/dL (8.4-10.2) 12/25/16 05:45 Phosphorus 2.90 mg/dL (2.5-4.5) 12/25/16 05:45 Magnesium 1.70 mg/dL (1.7-2.3) 12/25/16 05:45 Urine Creatinine 19.7 mg/dL (0.1-20.0) 11/12/16 10:18 Urine Sodium 36 mEq/L 09/16/16 19:19 Urine Total Protein 16 mg/dL (5-11.8) H 09/16/16 19:19
[2016-12-25] MEDS: PROTONIX FEEDTUBE SCH (10:55)
[2016-12-25] MEDS: ROBINUL PO SCH ×2 (10:55→22:19)
[2016-12-25] MEDS: CORDARONE PO SCH ×2 (10:56→22:19)
[2016-12-25] MEDS: NORVASC PO SCH (10:57)
--- NOTE | 2016-12-25 17:05 | Progress Note ---
Assessment and Plan Assessment and plan: Patient is 46-year-old woman with a history of hypertension, diabetes, asthma, hyperlipidemia, chronic kidney disease and anxiety , who was brought in by family because, she couldn't get her words out, her face was also twisted, she was admitted for acute CVA and accelerated hypertension, she had a hx of poor adherence with her medications, and uncontrolled htn. Patient's SBP on admission was noted be greater than 260. TPA was started but this was discontinued after 5 minutes because her blood pressure became uncontrolled. The TPA was not initiated again because the patient was outside the TPA window. Status post cardiac arrest , 11/21/16 - Received CPR and was resuscitated. Fever - resolved - Antibiotic discontinued today per ID - s/p R thoracentesis on 11/14, 240cc of serous fluid removed, cx of fluid was negative - Stool negative for C. difficile Severe Sepsis with septic shock - Resolving Surgical wound infection/gram-negative sepsis/candidemia/peritonitis - PEG has been removed and pus is drained from the PEG site - Currently on tube feeding -continue wound care to ostomy sites JUANITA, ESRD - on HD per nephrology Acute CVA with infarct - Neurology input appreciated - CT shows continued evolution of left MCA infarct with slight mass effect and edema, and there is no hemorrhage - PRINCE showed hyperdynamic with ef of 75%, neither clot nor septal defect seen - MRA Brain shows near complete occlusion of M2 and M3 of the left MCA - Repeat CT scan done on 09/11, shows stable findings - carotid doppler negative - Echo shows preserved systolic function but does show some left ventricular diastolic dysfunction - continue asa and statin Persistent vegetative state - This patient's needs placement at SNF - She was denied for LTACH Acute hypoxic respiratory failure requiring MV >96hrs - Status post tracheostomy, was on T piece Nosocomial acquired aspiration pneumonia/sepsis/UTI - Recurrent - Finished a course of antibiotic Asthma/COPD exacerbation - ON trach, mechanical ventilation Status Post CVA Bilateral pleural effusion, s/p right thoracentesis A. fib with RVR Diabetes type 2. Continue sliding-scale regular insulin and Accu-Cheks. Hyperlipidemia. Continue statin Nutrition - continue tube feeds Anemia requiring multiple transfusions/acute blood loss Disposition. Very poor prognosis. The high probability of a clinically significant, sudden or life threatening deterioration of the [neurologic, CV] system(s) required my full and direct attention, intervention and personal management. The aggregate critical care time was [34] minutes. This time is in addition to time spent performing reported procedures but includes the following: [x] Data Review and interpretation [x] Patient assessment and monitoring of vital signs [x] Documentation [x] Medication orders and management History Interval history: Patient was seen and evaluated this morning, patient is in persistent vegetative state. 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 Hospitalist Physical - Physical exam Narrative exam: Patient is on mechanical ventilation Vital signs as documented. Head exam is unremarkable. No scleral icterus . Neck is without jugular venous distension, thyromegaly, or carotid bruits. Lungs are clear to auscultation. Cardiac exam reveals regular rate and Rhythm. First and second heart sounds normal. No murmurs, rubs or gallops. Abdominal exam reveals abscess draining from the PEG site, and multiple fistulas around the stomach. Extremities are nonedematous and both femoral and pedal pulses are normal. [employer]: comatose - Constitutional Vitals: Temp Pulse Resp BP Pulse Ox 98.5 F 95 H 12 134/83 97 12/25/16 16:00 12/25/16 15:44 12/25/16 15:44 12/25/16 15:35 12/25/16 15:40 General appearance: Present: no acute distress, well-nourished, obese Results - Labs CBC & Chem 7: 12/19/16 05:02 12/25/16 05:45 Labs: Laboratory Last Values WBC 20.1 K/mm3 (4.5-11.0) H 12/19/16 05:02 RBC 2.73 M/mm3 (3.65-5.03) L 12/19/16 05:02 Hgb 7.6 gm/dl (10.1-14.3) L 12/19/16 05:02 Hct 23.6 % (30.3-42.9) L 12/19/16 05:02 MCV 86 fl (79-97) 12/19/16 05:02 MCH 28 pg (28-32) 12/19/16 05:02 MCHC 32 % (30-34) 12/19/16 05:02 RDW 17.6 % (13.2-15.2) H 12/19/16 05:02 Plt Count 354 K/mm3 (140-440) 12/19/16 05:02 Lymph % (Auto) [employer]warehouse Supervisor 12/19/16 05:02 [place] % (Auto) [employer]warehouse Supervisor 12/19/16 05:02 Eos % (Auto) [employer]warehouse Supervisor 12/19/16 05:02 Baso % (Auto) [employer]warehouse Supervisor 12/19/16 05:02 Lymph # [employer]warehouse Supervisor 12/19/16 05:02 [place] # [employer]warehouse Supervisor 12/19/16 05:02 Eos # [employer]warehouse Supervisor 12/19/16 05:02 Baso # [employer]warehouse Supervisor 12/19/16 05:02 Add Manual Diff Complete 12/19/16 05:02 Total Counted 100 12/19/16 05:02 Seg Neutrophils % [employer]warehouse Supervisor 12/19/16 05:02 Seg Neuts % (Manual) 64.0 % (40.0-70.0) 12/19/16 05:02 Band Neutrophils % 15.0 % 12/19/16 05:02 Lymphocytes % (Manual) 13.0 % (13.4-35.0) L 12/19/16 05:02 Reactive Lymphs % (Man) 0 % 12/19/16 05:02 Monocytes % (Manual) 7.0 % (0.0-7.3) 12/19/16 05:02 Eosinophils % (Manual) 0 % (0.0-4.3) 12/19/16 05:02 Basophils % (Manual) 1.0 % (0.0-1.8) 12/19/16 05:02 Metamyelocytes % 0 % 12/19/16 05:02 Myelocytes % 0 % 12/19/16 05:02 Promyelocytes % 0 % 12/19/16 05:02 Blast Cells % 0 % 12/19/16 05:02 Nucleated RBC % 1.0 % (0.0-0.9) H 12/19/16 05:02 Seg Neutrophils # [employer]warehouse Supervisor 12/19/16 05:02 Seg Neutrophils # Man 12.9 K/mm3 (1.8-7.7) H 12/19/16 05:02 Band Neutrophils # 3.0 K/mm3 12/19/16 05:02 Lymphocytes # (Manual) 2.6 K/mm3 (1.2-5.4) 12/19/16 05:02 Abs React Lymphs (Man) 0.0 K/mm3 12/19/16 05:02 Monocytes # (Manual) 1.4 K/mm3 (0.0-0.8) H 12/19/16 05:02 Eosinophils # (Manual) 0.0 K/mm3 (0.0-0.4) 12/19/16 05:02 Basophils # (Manual) 0.2 K/mm3 (0.0-0.1) H 12/19/16 05:02 Metamyelocytes # 0.0 K/mm3 12/19/16 05:02 Myelocytes # 0.0 K/mm3 12/19/16 05:02 Promyelocytes # 0.0 K/mm3 12/19/16 05:02 Blast Cells # 0.0 K/mm3 12/19/16 05:02 Pathologist Review 09/13/16 04:00 WBC Morphology Not Reportable 12/19/16 05:02 Hypersegmented Neuts Not Reportable 12/19/16 05:02 Hyposegmented Neuts Not Reportable 12/19/16 05:02 Hypogranular Neuts Not Reportable 12/19/16 05:02 Smudge Cells Not Reportable 12/19/16 05:02 Toxic Granulation Not Reportable 12/19/16 05:02 Toxic Vacuolation Not Reportable 12/19/16 05:02 Dohle Bodies Not Reportable 12/19/16 05:02 Pelger-Huet Anomaly Not Reportable 12/19/16 05:02 Jasmina Rods Not Reportable 12/19/16 05:02 Platelet Estimate Consistent w auto 12/19/16 05:02 Clumped Platelets Not Reportable 12/19/16 05:02 Plt Clumps, EDTA Not Reportable 12/19/16 05:02 Large Platelets Not Reportable 12/19/16 05:02 Giant Platelets Not Reportable 12/19/16 05:02 Platelet Satelliting Not Reportable 12/19/16 05:02 Plt Morphology Comment Not Reportable 12/19/16 05:02 RBC Morphology Not Reportable 12/19/16 05:02 Dimorphic RBCs Not Reportable 12/19/16 05:02 Polychromasia Not Reportable 12/19/16 05:02 Hypochromasia Not Reportable 12/19/16 05:02 Poikilocytosis Not Reportable 12/19/16 05:02 Anisocytosis Not Reportable 12/19/16 05:02 Microcytosis Not Reportable 12/19/16 05:02 Macrocytosis Not Reportable 12/19/16 05:02 Spherocytes Not Reportable 12/19/16 05:02 Pappenheimer Bodies Not Reportable 12/19/16 05:02 Sickle Cells Not Reportable 12/19/16 05:02 Target Cells Few 12/19/16 05:02 Tear Drop Cells Not Reportable 12/19/16 05:02 Ovalocytes Not Reportable 12/19/16 05:02 Stomatocytes Rare 12/03/16 04:00 Helmet Cells Not Reportable 12/19/16 05:02 Monet-Jesup Bodies Not Reportable 12/19/16 05:02 [place] Rings Not Reportable 12/19/16 05:02 Robinson Cells Not Reportable 12/19/16 05:02 Bite Cells Not Reportable 12/19/16 05:02 Crenated Cell Not Reportable 12/19/16 05:02 Elliptocytes Not Reportable 12/19/16 05:02 Acanthocytes (Spur) Not Reportable 12/19/16 05:02 Rouleaux Not Reportable 12/19/16 05:02 Hemoglobin C Crystals Not Reportable 12/19/16 05:02 Schistocytes Not Reportable 12/19/16 05:02 Malaria parasites Not Reportable 12/19/16 05:02 ESR > 140.0 mm/Hr (0-20) 09/08/16 11:48 Jun Bodies Not Reportable 12/19/16 05:02 Hem Pathologist Commnt No 12/19/16 05:02 PT 16.8 Sec. (12.2-14.9) H 11/17/16 03:20 INR 1.37 (0.87-1.13) H 11/17/16 03:20 APTT 33.0 Sec. (24.2-36.6) 10/09/16 03:45 Thrombin Time 16.8 Sec. (15.1-19.6) 09/03/16 00:10 Fibrinogen 750 mg/dl (211-480) H 09/08/16 11:48 Lupus Anticoagulant see below 09/12/16 09:59 LA PTT Baseline See scanned report 09/12/16 09:59 dRVVT Confirm Interp Positive (Negative) H 09/12/16 09:59 dRVVT Screen 50:50 See scanned report 09/12/16 09:59 dRVVT Mix Interpret See scanned report 09/12/16 09:59 Protein C Antigen 122 % (70-140) 09/08/16 15:35 Free Protein S 97 % normal (50-147) 09/08/16 15:35 Total Protein S 109 % (70-140) 09/08/16 15:35 Antithrombin III Ag 100 % (80-120) 09/08/16 15:35 Heparin Anti-Xa, Unfract Negative (Negative) 09/29/16 13:35 Factor V Activity 182 % (65-150) H 09/08/16 15:35 POC ABG pH 7.503 (7.35-7.45) H 12/19/16 09:36 ABG pH 7.450 pH Units (7.350-7.450) 12/05/16 Unknown POC ABG pCO2 30.1 (35-45) L 12/19/16 09:36 ABG pCO2 29.6 mm Hg 12/05/16 Unknown POC ABG pO2 85 (80-105) 12/19/16 09:36 ABG pO2 75.2 mm Hg (80.0-90.0) L 12/05/16 Unknown POC ABG HCO3 23.6 12/19/16 09:36 ABG HCO3 20.1 mmol/L (20.0-26.0) 12/05/16 Unknown POC ABG Total CO2 25 12/19/16 09:36 POC ABG O2 Sat 97 12/19/16 09:36 ABG O2 Saturation 96.8 % (95.0-99.0) 12/05/16 Unknown ABG O2 Content 9.9 (0.0-44) 12/05/16 Unknown POC ABG Base Excess 1 12/19/16 09:36 ABG Base Excess -3.4 mmol/L (-2.0-3.0) L 12/05/16 Unknown ABG Hemoglobin 7.4 gm/dl (12.0-16.0) L 12/05/16 Unknown ABG Carboxyhemoglobin 1.8 % (0.0-5.0) 12/05/16 Unknown ABG Methemoglobin 0.6 % (0.0-1.5) 12/05/16 Unknown Oxyhemoglobin 94.5 % (95.0-99.0) L 12/05/16 Unknown FiO2 28 % 12/19/16 09:36 Sodium 146 mmol/L (137-145) H 12/25/16 05:45 Potassium 3.8 mmol/L (3.6-5.0) 12/25/16 05:45 Chloride 105.0 mmol/L (98-107) 12/25/16 05:45 Carbon Dioxide 27 mmol/L (22-30) 12/25/16 05:45 Anion Gap 18 mmol/L 12/25/16 05:45 BUN 51 mg/dL (7-17) H 12/25/16 05:45 Creatinine 0.9 mg/dL (0.7-1.2) 12/25/16 05:45 Estimated GFR > 60 ml/min 12/25/16 05:45 BUN/Creatinine Ratio 57 % 12/25/16 05:45 Glucose 109 mg/dL (65-100) H 12/25/16 05:45 POC Glucose 117 (70-105) H 12/25/16 06:43 Osmolality 351 Mosm/kg 09/16/16 11:47 Lactic Acid 4.50 mmol/L (0.7-2.0) H* 09/28/16 07:25 Calcium 9.0 mg/dL (8.4-10.2) 12/25/16 05:45 Phosphorus 2.90 mg/dL (2.5-4.5) 12/25/16 05:45 Magnesium 1.70 mg/dL (1.7-2.3) 12/25/16 05:45 Total Bilirubin 0.90 mg/dL (0.1-1.2) 12/18/16 05:00 Direct Bilirubin 0.3 mg/dL (0-0.2) H 10/10/16 05:00 Indirect Bilirubin 0.1 mg/dL 10/10/16 05:00 AST 34 units/L (5-40) 12/18/16 05:00 ALT 42 units/L (7-56) 12/18/16 05:00 Alkaline Phosphatase 257 units/L (35-129) H 12/18/16 05:00 Ammonia 27.0 umol/L (25-60) 09/07/16 08:37 Lactate Dehydrogenase 196 units/L (91-180) H 11/11/16 06:59 Total Creatine Kinase 121 units/L (30-135) 09/29/16 20:12 CK-MB (CK-2) < 1.0 ng/mL (0.0-4.0) 09/29/16 20:12 CK-MB (CK-2) Rel Index 0.8 (0-4) 09/29/16 20:12 Troponin T 0.204 ng/mL (0.00-0.029) H* 09/29/16 20:12 C-Reactive Protein 19.30 mg/dL (0.00-1.30) H 12/05/16 05:00 Total Protein 5.9 g/dL (6.3-8.2) L 12/18/16 05:00 Albumin 1.8 g/dL (3.9-5) L 12/18/16 05:00 Albumin/Globulin Ratio 0.4 % 12/18/16 05:00 Prealbumin 0.180 g/L (0.200-0.400) L 11/06/16 06:25 Triglycerides 137 mg/dL (2-149) 09/29/16 20:12 Cholesterol 31 mg/dL (50-199) L 09/29/16 20:12 LDL Cholesterol Direct 4 mg/dL (50-130) L 09/29/16 20:12 HDL Cholesterol 3 mg/dL (40-59) L 09/29/16 20:12 Cholesterol/HDL Ratio 10.33 % 09/29/16 20:12 Angiotensin Convert Enz See scanned report 09/08/16 11:48 Renin 0.99 ng/mL/h (0.25-5.82) 10/07/16 10:56 Aldosterone <1 ng/dL () 10/07/16 10:56 Aldosterone/Renin Dir see below 10/07/16 10:56 Serotonin Release Assay See scanned report 09/29/16 13:35 TSH 1.010 mlU/mL (0.270-4.200) 09/07/16 08:37 HCG, Qual Negative (Negative) 09/03/16 00:10 Urine Color Yellow (Yellow) 11/05/16 13:09 Urine Turbidity Clear (Clear) 11/05/16 13:09 Urine pH 9.0 (5.0-7.0) H 11/05/16 13:09 Ur Specific [place] 1.011 (1.003-1.030) 11/05/16 13:09 Urine Protein 100 mg/dl mg/dL (Negative) 11/05/16 13:09 Urine Glucose (UA) Neg mg/dL (Negative) 11/05/16 13:09 Urine Ketones Neg mg/dL (Negative) 11/05/16 13:09 Urine Blood Neg (Negative) 11/05/16 13:09 Urine Nitrite Neg (Negative) 11/05/16 13:09 Urine Bilirubin Neg (Negative) 11/05/16 13:09 Urine Urobilinogen < 2.0 mg/dL (<2.0) 11/05/16 13:09 Ur Leukocyte Esterase Neg (Negative) 11/05/16 13:09 Urine WBC (Auto) 4.0 /HPF (0.0-6.0) 11/05/16 13:09 Urine RBC (Auto) 1.0 /HPF (0.0-6.0) 11/05/16 13:09 U Epithel Cells (Auto) 1.0 /HPF (0-13.0) 10/07/16 18:30 Urine Bacteria (Auto) 4+ /HPF (Negative) 11/05/16 13:09 Urine WBC Clumps 2+ /HPF 09/07/16 02:47 Hyaline Casts 4 /LPF 09/07/16 02:47 Urine Mucus Few /HPF 10/07/16 18:30 Urine Yeast (Budding) 3+ /HPF 10/07/16 18:30 Urine Eosinophils None seen (None Seen) 09/07/16 16:00 Urine Total Volume 950 11/12/16 10:18 Urine Creatinine 19.7 mg/dL (0.1-20.0) 11/12/16 10:18 Height (in) 65.0 inches 11/12/16 10:18 Weight (lb) 181.0 lbs 11/12/16 10:18 Creatinine Clearance 5 11/12/16 10:18 Urine Sodium 36 mEq/L 09/16/16 19:19 Urine Total Protein 16 mg/dL (5-11.8) H 09/16/16 19:19 Fluid Total Protein < 3.0 (15.0-45.0) L 11/10/16 14:20 Fluid LDH 123 11/10/16 14:20 Vancomycin Trough 2.3 ug/mL (5.0-20.0) L 09/21/16 13:00 Random Vancomycin 16.5 ug/mL (0-40.0) 11/28/16 09:45 Urine Opiates Screen Presumptive negative 09/03/16 15:11 Urine Methadone Screen Presumptive positive 09/03/16 15:11 Ur Barbiturates Screen Presumptive positive 09/03/16 15:11 Ur Phencyclidine Scrn Presumptive negative 09/03/16 15:11 Ur Amphetamines Screen Presumptive negative 09/03/16 15:11 U Benzodiazepines Scrn Presumptive negative 09/03/16 15:11 Urine Cocaine Screen Presumptive negative 09/03/16 15:11 U Marijuana (THC) Screen Presumptive positive 09/03/16 15:11 Drugs of Abuse Note Disclamer 09/03/16 15:11 Rheumatoid Factor 24 IU/ml (0-13) H 09/08/16 11:48 SAHIL Screen Negative (Negative) 09/07/16 09:20 Proteinase 3 (PR3) Ab <1.0 AI (<1.0) 09/07/16 09:20 Myeloperoxidase Ab <1.0 AI (<1.0) 09/07/16 09:20 Sjogren's Antibody <1.0 AI (<1.0) 09/08/16 15:35 Scl-70 Scleroderma Ab <1.0 AI (<1.0) 09/08/16 15:35 Centromere B Antibody <1.0 AI (<1.0) 09/08/16 12:02 Heparin-induced Plt Ab Negative (Negative) 09/29/16 13:35 UF Heparin High Dose 11 % Release 09/29/16 13:35 SUDHIR UFH Low Dose 0.1 6 % Release 09/29/16 13:35 SUDHIR UFH Low Dose 0.5 8 % Release 09/29/16 13:35 Cardiolipid IgG Ab <14 GPL (<=14) 09/12/16 09:59 Cardiolipid IgA Ab <11 APL (<=11) 09/12/16 09:59 Cardiolipid IgM Ab <12 MPL (<=12) 09/12/16 09:59 Complement C3 148 mg/dL (90-180) 09/07/16 09:20 Complement C4 58 mg/dL (16-47) H 09/07/16 09:20 RPR Nonreactive (Nonreactive) 09/08/16 11:48 Hepatitis A IgM Ab Non-reactive (NonReactive) 09/24/16 14:40 Hep Bs Antigen Non-reactive (Negative) 09/24/16 14:40 Hep B Core IgM Ab Non-reactive (NonReactive) 09/24/16 14:40 Hepatitis C Antibody Non-reactive (NonReactive) 09/24/16 14:40 HIV 1&2 Antibody Rapid Non react (Non React) 09/08/16 11:48 HIV P24 Antigen Non react (Non React) 09/08/16 11:48 Miscellaneous Test Flexitest 1 H 11/05/16 13:25 Blood Type A POSITIVE 12/16/16 16:25 Antibody Screen Negative 12/16/16 16:25 DELORIS Antibody Screen Negative 11/24/16 11:20 Crossmatch See Detail 12/16/16 16:25
[2016-12-25] MEDS ORDERED: TPN ADULT IV SCH (20:00)
[2016-12-25] MEDS: TYLENOL FEEDTUBE PRN (22:21)
[2016-12-26] MEDS: HumuLIN R SUB-Q SCH ×4 (00:56→18:19)
[2016-12-26] MEDS: LOPRESSOR PO SCH ×4 (00:56→19:18)
[2016-12-26] MEDS: DUONEB *Not for PRN Use IH SCH ×4 (03:21→19:21)
[2016-12-26] MEDS: APRESOLINE PO SCH ×3 (06:08→22:04)
[2016-12-26 07:19] LABS: Hemoglobin 6.2 gm/dl (10.1-14.3); Mean Corpuscular HGB Conc 32 % (30-34); Mean Corpuscular Hemoglobin 27 pg (28-32); Mean Corpuscular Volume 85 fl (79-97); Platelet Count 196 K/mm3 (140-440); Red Blood Count 2.32 M/mm3 (3.65-5.03); Red Cell Distribution Width 18.6 % (13.2-15.2)
--- NOTE | 2016-12-26 07:23 | XRay Report ---
AP CHEST: HISTORY: Followup pleural effusion Heart size is stable at the upper limits of normal. Normal pulmonary vascularity. Small bilateral pleural effusions have decreased by 25% since 12/16/16. Mild atelectatic changes are noted in the lower lobes, otherwise, the lungs are clear. No pneumothorax. A tracheostomy, nasogastric tube, left IJ venous catheter and left arm PICC appear in adequate position. IMPRESSION: Small bilateral pleural effusions and bibasilar atelectasis. Slight improvement since 12/16/16 exam.
[2016-12-26 07:24] LABS: Hematocrit 20.1 % (30.3-42.9)
[2016-12-26 07:42] LABS: Calcium 9.4 mg/dL (8.4-10.2)
[2016-12-26] MEDS: HEPARIN SUB-Q SCH ×2 (09:30→22:03)
[2016-12-26] MEDS: CORDARONE PO SCH ×2 (09:31→22:05)
[2016-12-26] MEDS: ROBINUL PO SCH (09:31)
[2016-12-26] MEDS: PROTONIX FEEDTUBE SCH (09:31)
[2016-12-26] MEDS: NORVASC PO SCH (09:35)
--- NOTE | 2016-12-26 09:43 | Progress Note ---
Assessment and Plan - Patient Problems (1) JUANITA (acute kidney injury) Current Visit: Yes Status: Acute Plan to address problem: noted rise in Scr from 0.9 to 1.3-may be prerenal. Continue present hydration. Noted drop in Hb from 7.6 to 6.2 today-R/O bleeding. Consider PRBC (2) Acute CVA (cerebrovascular accident) Current Visit: Yes Status: Acute (3) Acute respiratory failure with hypoxia Current Visit: Yes Status: Acute (4) Atrial fibrillation Current Visit: Yes Status: Acute Qualifiers: Atrial fibrillation type: A (5) Type 2 diabetes mellitus Current Visit: Yes Status: Chronic Qualifiers: Diabetes mellitus complication status: D Diabetes mellitus complication detail: D Diabetic retinopathy severity: D Proliferative retinopathy type: P Diabetes mellitus macular edema: D Diabetes mellitus intermediate frame tender insulin use : D Laterality: L Chronic kidney disease stage: C (6) Anemia Current Visit: No Status: Acute Qualifiers: Anemia type: unspecified type Iron deficiency anemia type: I Vitamin B12 deficiency anemia type: V Folate deficiency anemia type: F Bone marrow failure anemia type: B Hemolytic anemia type: H Other causes of anemia: O Chronic kidney disease stage: C Qualified Code(s): D64.9 - Anemia, unspecified Subjective Date of service: 12/26/16 Principal diagnosis: Acute resp failure on MVS; S/P Acute CVA; Acute Encephalopathy; JUANITA Interval history: chart was reviewed, discussed with pt's nurse. on ventilator via trach. Fio2-35% Objective - Vital Signs Vital signs: Vital Signs - 12hr 12/25/16 12/25/16 12/25/16 21:45 22:00 22:15 Temperature Pulse Rate 94 H 94 H 96 H Pulse Rate [ Anterior Bilateral Throughout] Pulse Rate [ From Monitor] Respiratory 19 21 19 Rate Respiratory Rate [Anterior Bilateral Throughout] Respiratory Rate [ Generalized] Blood Pressure 136/76 137/76 143/78 O2 Sat by Pulse 99 99 99 Oximetry O2 Sat by Pulse Oximetry [ Assessment] 12/25/16 12/25/16 12/25/16 22:20 22:21 22:30 Temperature Pulse Rate 93 H 95 H Pulse Rate [ Anterior Bilateral Throughout] Pulse Rate [ From Monitor] Respiratory 20 22 Rate Respiratory Rate [Anterior Bilateral Throughout] Respiratory Rate [ Generalized] Blood Pressure 143/78 141/75 O2 Sat by Pulse 98 Oximetry O2 Sat by Pulse Oximetry [ Assessment] 12/25/16 12/25/16 12/25/16 22:45 23:00 23:15 Temperature Pulse Rate 92 H 92 H 97 H Pulse Rate [ Anterior Bilateral Throughout] Pulse Rate [ From Monitor] Respiratory 22 21 19 Rate Respiratory Rate [Anterior Bilateral Throughout] Respiratory Rate [ Generalized] Blood Pressure 132/69 93/45 105/52 O2 Sat by Pulse 92 98 98 Oximetry O2 Sat by Pulse Oximetry [ Assessment] 12/25/16 12/25/16 12/25/16 23:21 23:30 23:38 Temperature Pulse Rate 96 H 95 H Pulse Rate [ Anterior Bilateral Throughout] Pulse Rate [ From Monitor] Respiratory 20 20 Rate Respiratory Rate [Anterior Bilateral Throughout] Respiratory Rate [ Generalized] Blood Pressure 99/50 99/50 O2 Sat by Pulse 99 93 Oximetry O2 Sat by Pulse Oximetry [ Assessment] 12/25/16 12/25/16 12/26/16 23:41 23:45 00:00 Temperature 98.6 F Pulse Rate 96 H 95 H Pulse Rate [ Anterior Bilateral Throughout] Pulse Rate [ From Monitor] Respiratory 19 20 Rate Respiratory Rate [Anterior Bilateral Throughout] Respiratory Rate [ Generalized] Blood Pressure 99/47 102/46 O2 Sat by Pulse 99 99 Oximetry O2 Sat by Pulse 92 Oximetry [ Assessment] 12/26/16 12/26/16 12/26/16 00:15 00:30 00:45 Temperature Pulse Rate 95 H 91 H 92 H Pulse Rate [ Anterior Bilateral Throughout] Pulse Rate [ From Monitor] Respiratory 20 20 19 Rate Respiratory Rate [Anterior Bilateral Throughout] Respiratory Rate [ Generalized] Blood Pressure 106/52 99/48 100/52 O2 Sat by Pulse 100 100 100 Oximetry O2 Sat by Pulse Oximetry [ Assessment] 12/26/16 12/26/16 12/26/16 00:56 01:00 01:15 Temperature Pulse Rate 94 H 95 H 94 H Pulse Rate [ Anterior Bilateral Throughout] Pulse Rate [ From Monitor] Respiratory 20 20 Rate Respiratory Rate [Anterior Bilateral Throughout] Respiratory Rate [ Generalized] Blood Pressure 97/46 108/49 96/48 O2 Sat by Pulse 100 100 Oximetry O2 Sat by Pulse Oximetry [ Assessment] 12/26/16 12/26/16 12/26/16 01:30 01:45 02:00 Temperature Pulse Rate 96 H 99 H 100 H Pulse Rate [ 98 H Anterior Bilateral Throughout] Pulse Rate [ From Monitor] Respiratory 20 20 21 Rate Respiratory 19 Rate [Anterior Bilateral Throughout] Respiratory Rate [ Generalized] Blood Pressure 105/51 112/56 113/59 O2 Sat by Pulse 100 99 99 Oximetry O2 Sat by Pulse Oximetry [ Assessment] 12/26/16 12/26/16 12/26/16 02:15 02:30 02:45 Temperature Pulse Rate 106 H 100 H 106 H Pulse Rate [ Anterior Bilateral Throughout] Pulse Rate [ From Monitor] Respiratory 22 24 16 Rate Respiratory Rate [Anterior Bilateral Throughout] Respiratory Rate [ Generalized] Blood Pressure 128/82 116/74 142/78 O2 Sat by Pulse 99 96 99 Oximetry O2 Sat by Pulse Oximetry [ Assessment] 12/26/16 12/26/16 12/26/16 03:01 03:15 03:24 Temperature Pulse Rate 104 H 100 H Pulse Rate [ 96 H Anterior Bilateral Throughout] Pulse Rate [ From Monitor] Respiratory 19 21 Rate Respiratory 20 Rate [Anterior Bilateral Throughout] Respiratory Rate [ Generalized] Blood Pressure 151/79 127/71 O2 Sat by Pulse 90 98 Oximetry O2 Sat by Pulse Oximetry [ Assessment] 12/26/16 12/26/16 12/26/16 03:27 03:30 03:45 Temperature Pulse Rate 100 H 100 H Pulse Rate [ 98 H Anterior Bilateral Throughout] Pulse Rate [ From Monitor] Respiratory 21 22 Rate Respiratory 20 Rate [Anterior Bilateral Throughout] Respiratory Rate [ Generalized] Blood Pressure 124/68 111/66 O2 Sat by Pulse 99 88 Oximetry O2 Sat by Pulse Oximetry [ Assessment] 12/26/16 12/26/16 12/26/16 04:00 04:15 04:30 Temperature 98.8 F Pulse Rate 100 H 101 H 102 H Pulse Rate [ Anterior Bilateral Throughout] Pulse Rate [ 100 H From Monitor] Respiratory 22 19 22 Rate Respiratory Rate [Anterior Bilateral Throughout] Respiratory Rate [ Generalized] Blood Pressure 117/59 118/62 115/64 O2 Sat by Pulse 100 99 90 Oximetry O2 Sat by Pulse Oximetry [ Assessment] 12/26/16 12/26/16 12/26/16 04:46 05:00 05:16 Temperature Pulse Rate 100 H 100 H 96 H Pulse Rate [ Anterior Bilateral Throughout] Pulse Rate [ From Monitor] Respiratory 22 23 20 Rate Respiratory Rate [Anterior Bilateral Throughout] Respiratory Rate [ Generalized] Blood Pressure 115/64 113/60 116/63 O2 Sat by Pulse 94 95 95 Oximetry O2 Sat by Pulse Oximetry [ Assessment] 12/26/16 12/26/16 12/26/16 05:30 05:46 06:00 Temperature Pulse Rate 99 H 100 H 97 H Pulse Rate [ Anterior Bilateral Throughout] Pulse Rate [ From Monitor] Respiratory 20 22 22 Rate Respiratory Rate [Anterior Bilateral Throughout] Respiratory Rate [ Generalized] Blood Pressure 117/63 116/64 116/61 O2 Sat by Pulse 96 96 96 Oximetry O2 Sat by Pulse Oximetry [ Assessment] 12/26/16 12/26/16 12/26/16 06:08 06:16 06:30 Temperature Pulse Rate 100 H 98 H 101 H Pulse Rate [ Anterior Bilateral Throughout] Pulse Rate [ From Monitor] Respiratory 22 22 Rate Respiratory Rate [Anterior Bilateral Throughout] Respiratory Rate [ Generalized] Blood Pressure 116/61 120/64 117/70 O2 Sat by Pulse 98 97 Oximetry O2 Sat by Pulse Oximetry [ Assessment] 12/26/16 12/26/16 12/26/16 06:43 06:46 07:00 Temperature Pulse Rate 99 H 100 H 100 H Pulse Rate [ Anterior Bilateral Throughout] Pulse Rate [ From Monitor] Respiratory 21 20 Rate Respiratory Rate [Anterior Bilateral Throughout] Respiratory 21 Rate [ Generalized] Blood Pressure 119/68 124/70 O2 Sat by Pulse 96 99 Oximetry O2 Sat by Pulse Oximetry [ Assessment] 12/26/16 12/26/16 12/26/16 07:16 07:30 07:39 Temperature Pulse Rate 103 H 103 H 100 H Pulse Rate [ Anterior Bilateral Throughout] Pulse Rate [ From Monitor] Respiratory 21 22 Rate Respiratory Rate [Anterior Bilateral Throughout] Respiratory Rate [ Generalized] Blood Pressure 119/63 130/75 130/75 O2 Sat by Pulse 99 99 99 Oximetry O2 Sat by Pulse Oximetry [ Assessment] 12/26/16 12/26/16 12/26/16 07:42 07:43 07:46 Temperature Pulse Rate 101 H Pulse Rate [ 102 H Anterior Bilateral Throughout] Pulse Rate [ From Monitor] Respiratory 16 Rate Respiratory 23 Rate [Anterior Bilateral Throughout] Respiratory Rate [ Generalized] Blood Pressure 129/75 O2 Sat by Pulse 99 Oximetry O2 Sat by Pulse 96 Oximetry [ Assessment] 12/26/16 12/26/16 12/26/16 07:50 08:00 08:16 Temperature 98.6 F Pulse Rate 99 H 100 H Pulse Rate [ 100 H Anterior Bilateral Throughout] Pulse Rate [ From Monitor] Respiratory 21 20 Rate Respiratory 12 Rate [Anterior Bilateral Throughout] Respiratory Rate [ Generalized] Blood Pressure 117/67 120/68 O2 Sat by Pulse 99 99 Oximetry O2 Sat by Pulse Oximetry [ Assessment] 12/26/16 09:35 Temperature Pulse Rate Pulse Rate [ Anterior Bilateral Throughout] Pulse Rate [ From Monitor] Respiratory Rate Respiratory Rate [Anterior Bilateral Throughout] Respiratory Rate [ Generalized] Blood Pressure 128/73 O2 Sat by Pulse Oximetry O2 Sat by Pulse Oximetry [ Assessment] - General Appearance General appearance: chronically ill EENT: mucous membranes dry Neck: no JVD Respiratory: Present: Decreased Breath Sounds Cardiology: regular, tachycardia Gastrointestinal: distended - Lab 12/26/16 05:50 12/26/16 05:50 Most recent lab results ABG pH 7.450 pH Units (7.350-7.450) 12/05/16 Unknown ABG pCO2 29.6 mm Hg 12/05/16 Unknown ABG pO2 75.2 mm Hg (80.0-90.0) L 12/05/16 Unknown ABG HCO3 20.1 mmol/L (20.0-26.0) 12/05/16 Unknown ABG O2 Saturation 96.8 % (95.0-99.0) 12/05/16 Unknown Calcium 9.4 mg/dL (8.4-10.2) 12/26/16 05:50 Phosphorus 4.00 mg/dL (2.5-4.5) D 12/26/16 05:50 Magnesium 1.90 mg/dL (1.7-2.3) 12/26/16 05:50 Urine Creatinine 19.7 mg/dL (0.1-20.0) 11/12/16 10:18 Urine Sodium 36 mEq/L 09/16/16 19:19 Urine Total Protein 16 mg/dL (5-11.8) H 09/16/16 19:19
--- NOTE | 2016-12-26 11:12 | Progress Note ---
Assessment and Plan Acute Hypoxemic Respiratory Failure (now with exacerbation and back on MVS) Hypertension (unable to receive p.o. 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 - continue wound care per WCT and RH's (surgical evaluation prn) - continue prn vasopressin if MAP falls < 60mmHg - prn CRP & lactate levels if clinically indicated (Follow WBC also) - keep on with daily PSV trials and / or T-piece as tolerated (repeat trial each shift if failed earlier shift) - continue TPN administration (continue TPN; NPO except for meds) - continue scopolamine for secretion control - continue to wean FiO2 for sats > 94% - continue bronchodilators and pulmonary toilet - VAP bundle addressed - continue prn IV metorolol - continue metoprolol and amlodipine (hold for hypotension) - continue HD/UF per nephrology (Teu/Thurs/Sat) - continue to follow electrolytes and correct as necessary - continue GI & VTE prophylaxis - Continue flu & pneumovax per protocol - ethics consult placed .....she remains critically ill on life sustaining interventions including MVS and at risk for further deterioration including ....32' CCT today without overlap ...care home prognosis remains guarded and this has intermittently been conveyed to family Subjective Date of service: 12/26/16 Principal diagnosis: Acute resp failure on MVS; S/P Acute CVA; Acute Encephalopathy; JUANITA Interval history: Patient is seen today for: Acute resp failure on MVS; S/P Acute CVA; Acute Encephalopathy; JUANITA Seen and examined at bedside; 24hour events reviewed; nursing and respiratory care staff consulted; no adverse overnight events reported to me; remains on MVS ; resting in bed; AMS is persistent; No gross bleeding; still with increased work of breathing and persistent pleural effusions despitae sequential dialysis with UF Objective Vital Signs - 12hr 12/25/16 12/25/16 12/25/16 23:15 23:21 23:30 Temperature Pulse Rate 97 H 96 H Pulse Rate [ Anterior Bilateral Throughout] Pulse Rate [ From Monitor] Respiratory 19 20 20 Rate Respiratory Rate [Anterior Bilateral Throughout] Respiratory Rate [ Generalized] Blood Pressure 105/52 99/50 O2 Sat by Pulse 98 99 Oximetry O2 Sat by Pulse Oximetry [ Assessment] 12/25/16 12/25/16 12/25/16 23:38 23:41 23:45 Temperature Pulse Rate 95 H 96 H Pulse Rate [ Anterior Bilateral Throughout] Pulse Rate [ From Monitor] Respiratory 19 Rate Respiratory Rate [Anterior Bilateral Throughout] Respiratory Rate [ Generalized] Blood Pressure 99/50 99/47 O2 Sat by Pulse 93 99 Oximetry O2 Sat by Pulse 92 Oximetry [ Assessment] 12/26/16 12/26/16 12/26/16 00:00 00:15 00:30 Temperature 98.6 F Pulse Rate 95 H 95 H 91 H Pulse Rate [ Anterior Bilateral Throughout] Pulse Rate [ From Monitor] Respiratory 20 20 20 Rate Respiratory Rate [Anterior Bilateral Throughout] Respiratory Rate [ Generalized] Blood Pressure 102/46 106/52 99/48 O2 Sat by Pulse 99 100 100 Oximetry O2 Sat by Pulse Oximetry [ Assessment] 12/26/16 12/26/16 12/26/16 00:45 00:56 01:00 Temperature Pulse Rate 92 H 94 H 95 H Pulse Rate [ Anterior Bilateral Throughout] Pulse Rate [ From Monitor] Respiratory 19 20 Rate Respiratory Rate [Anterior Bilateral Throughout] Respiratory Rate [ Generalized] Blood Pressure 100/52 97/46 108/49 O2 Sat by Pulse 100 100 Oximetry O2 Sat by Pulse Oximetry [ Assessment] 12/26/16 12/26/16 12/26/16 01:15 01:30 01:45 Temperature Pulse Rate 94 H 96 H 99 H Pulse Rate [ Anterior Bilateral Throughout] Pulse Rate [ From Monitor] Respiratory 20 20 20 Rate Respiratory Rate [Anterior Bilateral Throughout] Respiratory Rate [ Generalized] Blood Pressure 96/48 105/51 112/56 O2 Sat by Pulse 100 100 99 Oximetry O2 Sat by Pulse Oximetry [ Assessment] 12/26/16 12/26/16 12/26/16 02:00 02:15 02:30 Temperature Pulse Rate 100 H 106 H 100 H Pulse Rate [ 98 H Anterior Bilateral Throughout] Pulse Rate [ From Monitor] Respiratory 21 22 24 Rate Respiratory 19 Rate [Anterior Bilateral Throughout] Respiratory Rate [ Generalized] Blood Pressure 113/59 128/82 116/74 O2 Sat by Pulse 99 99 96 Oximetry O2 Sat by Pulse Oximetry [ Assessment] 12/26/16 12/26/16 12/26/16 02:45 03:01 03:15 Temperature Pulse Rate 106 H 104 H 100 H Pulse Rate [ Anterior Bilateral Throughout] Pulse Rate [ From Monitor] Respiratory 16 19 21 Rate Respiratory Rate [Anterior Bilateral Throughout] Respiratory Rate [ Generalized] Blood Pressure 142/78 151/79 127/71 O2 Sat by Pulse 99 90 98 Oximetry O2 Sat by Pulse Oximetry [ Assessment] 12/26/16 12/26/16 12/26/16 03:24 03:27 03:30 Temperature Pulse Rate 100 H Pulse Rate [ 96 H 98 H Anterior Bilateral Throughout] Pulse Rate [ From Monitor] Respiratory 21 Rate Respiratory 20 20 Rate [Anterior Bilateral Throughout] Respiratory Rate [ Generalized] Blood Pressure 124/68 O2 Sat by Pulse 99 Oximetry O2 Sat by Pulse Oximetry [ Assessment] 12/26/16 12/26/16 12/26/16 03:45 04:00 04:15 Temperature 98.8 F Pulse Rate 100 H 100 H 101 H Pulse Rate [ Anterior Bilateral Throughout] Pulse Rate [ 100 H From Monitor] Respiratory 22 22 19 Rate Respiratory Rate [Anterior Bilateral Throughout] Respiratory Rate [ Generalized] Blood Pressure 111/66 117/59 118/62 O2 Sat by Pulse 88 100 99 Oximetry O2 Sat by Pulse Oximetry [ Assessment] 12/26/16 12/26/16 12/26/16 04:30 04:46 05:00 Temperature Pulse Rate 102 H 100 H 100 H Pulse Rate [ Anterior Bilateral Throughout] Pulse Rate [ From Monitor] Respiratory 22 22 23 Rate Respiratory Rate [Anterior Bilateral Throughout] Respiratory Rate [ Generalized] Blood Pressure 115/64 115/64 113/60 O2 Sat by Pulse 90 94 95 Oximetry O2 Sat by Pulse Oximetry [ Assessment] 12/26/16 12/26/16 12/26/16 05:16 05:30 05:46 Temperature Pulse Rate 96 H 99 H 100 H Pulse Rate [ Anterior Bilateral Throughout] Pulse Rate [ From Monitor] Respiratory 20 20 22 Rate Respiratory Rate [Anterior Bilateral Throughout] Respiratory Rate [ Generalized] Blood Pressure 116/63 117/63 116/64 O2 Sat by Pulse 95 96 96 Oximetry O2 Sat by Pulse Oximetry [ Assessment] 12/26/16 12/26/16 12/26/16 06:00 06:08 06:16 Temperature Pulse Rate 97 H 100 H 98 H Pulse Rate [ Anterior Bilateral Throughout] Pulse Rate [ From Monitor] Respiratory 22 22 Rate Respiratory Rate [Anterior Bilateral Throughout] Respiratory Rate [ Generalized] Blood Pressure 116/61 116/61 120/64 O2 Sat by Pulse 96 98 Oximetry O2 Sat by Pulse Oximetry [ Assessment] 12/26/16 12/26/16 12/26/16 06:30 06:43 06:46 Temperature Pulse Rate 101 H 99 H 100 H Pulse Rate [ Anterior Bilateral Throughout] Pulse Rate [ From Monitor] Respiratory 22 21 Rate Respiratory Rate [Anterior Bilateral Throughout] Respiratory 21 Rate [ Generalized] Blood Pressure 117/70 119/68 O2 Sat by Pulse 97 96 Oximetry O2 Sat by Pulse Oximetry [ Assessment] 12/26/16 12/26/16 12/26/16 07:00 07:16 07:30 Temperature Pulse Rate 100 H 103 H 103 H Pulse Rate [ Anterior Bilateral Throughout] Pulse Rate [ From Monitor] Respiratory 20 21 22 Rate Respiratory Rate [Anterior Bilateral Throughout] Respiratory Rate [ Generalized] Blood Pressure 124/70 119/63 130/75 O2 Sat by Pulse 99 99 99 Oximetry O2 Sat by Pulse Oximetry [ Assessment] 12/26/16 12/26/16 12/26/16 07:39 07:42 07:43 Temperature Pulse Rate 100 H Pulse Rate [ 102 H Anterior Bilateral Throughout] Pulse Rate [ From Monitor] Respiratory Rate Respiratory 23 Rate [Anterior Bilateral Throughout] Respiratory Rate [ Generalized] Blood Pressure 130/75 O2 Sat by Pulse 99 Oximetry O2 Sat by Pulse 96 Oximetry [ Assessment] 12/26/16 12/26/16 12/26/16 07:46 07:50 08:00 Temperature 98.6 F Pulse Rate 101 H 99 H Pulse Rate [ 100 H Anterior Bilateral Throughout] Pulse Rate [ From Monitor] Respiratory 16 21 Rate Respiratory 12 Rate [Anterior Bilateral Throughout] Respiratory Rate [ Generalized] Blood Pressure 129/75 117/67 O2 Sat by Pulse 99 99 Oximetry O2 Sat by Pulse Oximetry [ Assessment] 12/26/16 12/26/16 12/26/16 08:16 09:35 10:51 Temperature Pulse Rate 100 H 110 H Pulse Rate [ Anterior Bilateral Throughout] Pulse Rate [ From Monitor] Respiratory 20 Rate Respiratory Rate [Anterior Bilateral Throughout] Respiratory Rate [ Generalized] Blood Pressure 120/68 128/73 123/69 O2 Sat by Pulse 99 100 Oximetry O2 Sat by Pulse Oximetry [ Assessment] Constitutional: appears uncomfortable, other (not tracking) Eyes: non-icteric, other (tracheostomy tube in midline of neck) ENT: oropharynx moist, oropharyngeal exudate pre Neck: supple, no lymphadenopathy, no JVD, other (no thyromegaly) Effort: mildly labored Ascultation: Bilateral: diminished breath sounds (bases), rhonchi (and referred upper airway sounds) Percussion: Bilateral: dull (bases) Cardiovascular: regular rate and rhythm, other (no rubs / murmurs) Gastrointestinal: hypoactive bowel sounds, soft, non-tender, non-distended, other (RLQ & LUQ stomas with colostomy bags) Integumentary: decubitus ulcer (sacral; stage 4), other (no rash; no cellulitis ; poor turgor) Extremities: no cyanosis, pulses normal, no ischemia or petechiae, edema (1+ bilaterally) Neurologic: pupils equal and round, unable to assess, other (encephalopathic) Psychiatric: other (unable to assess) CBC and BMP: 12/28/16 04:00 12/28/16 04:00 ABG, PT/INR, D-dimer: ABG POC ABG pH 7.503 (7.35-7.45) H 12/19/16 09:36 ABG pH 7.450 pH Units (7.350-7.450) 12/05/16 Unknown POC ABG pCO2 30.1 (35-45) L 12/19/16 09:36 ABG pCO2 29.6 mm Hg 12/05/16 Unknown POC ABG pO2 85 (80-105) 12/19/16 09:36 ABG pO2 75.2 mm Hg (80.0-90.0) L 12/05/16 Unknown POC ABG HCO3 23.6 12/19/16 09:36 POC ABG Total CO2 25 12/19/16 09:36 POC ABG O2 Sat 97 12/19/16 09:36 ABG O2 Saturation 96.8 % (95.0-99.0) 12/05/16 Unknown PT/INR, D-dimer PT 16.8 Sec. (12.2-14.9) H 11/17/16 03:20 INR 1.37 (0.87-1.13) H 11/17/16 03:20 Abnormal lab findings: Abnormal Labs 09/03/16 09/03/16 09/03/16 12:12 15:07 16:20 WBC RBC Hgb Hct MCV MCH MCHC RDW Plt Count Lymph % (Auto) [place] % (Auto) Lymph # [place] # Baso # Seg Neutrophils % Seg Neuts % (Manual) Lymphocytes % (Manual) Monocytes % (Manual) Eosinophils % (Manual) Basophils % (Manual) Nucleated RBC % Seg Neutrophils # Seg Neutrophils # Man Lymphocytes # (Manual) Monocytes # (Manual) Eosinophils # (Manual) Basophils # (Manual) PT INR Fibrinogen dRVVT Confirm Interp Factor V Activity POC ABG pH 7.452 H POC ABG pCO2 POC ABG pO2 ABG pO2 ABG HCO3 ABG Base Excess ABG Hemoglobin Oxyhemoglobin Sodium Potassium Chloride Carbon Dioxide BUN Creatinine Glucose POC Glucose 178 H Lactic Acid Calcium Phosphorus 2.20 L Magnesium 1.60 L Direct Bilirubin AST ALT Alkaline Phosphatase Lactate Dehydrogenase Troponin T C-Reactive Protein Total Protein Albumin Prealbumin Triglycerides Cholesterol LDL Cholesterol Direct HDL Cholesterol Urine pH Urine WBC (Auto) Urine Creatinine Urine Total Protein Fluid Total Protein Vancomycin Trough Rheumatoid Factor Complement C4 Miscellaneous Test Crossmatch 09/03/16 09/03/16 09/03/16 17:57 17:58 23:50 WBC RBC Hgb Hct MCV MCH MCHC RDW Plt Count Lymph % (Auto) [place] % (Auto) Lymph # [place] # Baso # Seg Neutrophils % Seg Neuts % (Manual) Lymphocytes % (Manual) Monocytes % (Manual) Eosinophils % (Manual) Basophils % (Manual) Nucleated RBC % Seg Neutrophils # Seg Neutrophils # Man Lymphocytes # (Manual) Monocytes # (Manual) Eosinophils # (Manual) Basophils # (Manual) PT INR Fibrinogen dRVVT Confirm Interp Factor V Activity POC ABG pH POC ABG pCO2 POC ABG pO2 ABG pO2 ABG HCO3 ABG Base Excess ABG Hemoglobin Oxyhemoglobin Sodium Potassium Chloride Carbon Dioxide BUN Creatinine Glucose POC Glucose 162 H 145 H Lactic Acid Calcium Phosphorus 2.30 L Magnesium Direct Bilirubin AST ALT Alkaline Phosphatase Lactate Dehydrogenase Troponin T C-Reactive Protein Total Protein Albumin Prealbumin Triglycerides Cholesterol LDL Cholesterol Direct HDL Cholesterol Urine pH Urine WBC (Auto) Urine Creatinine Urine Total Protein Fluid Total Protein Vancomycin Trough Rheumatoid Factor Complement C4 Miscellaneous Test Crossmatch 09/04/16 09/04/16 09/04/16 03:31 03:31 05:42 WBC RBC Hgb 9.7 L D Hct MCV 72 L MCH 23 L MCHC RDW 17.5 H Plt Count Lymph % (Auto) 11.1 L [place] % (Auto) Lymph # [place] # Baso # Seg Neutrophils % 84.3 H Seg Neuts % (Manual) Lymphocytes % (Manual) Monocytes % (Manual) Eosinophils % (Manual) Basophils % (Manual) Nucleated RBC % Seg Neutrophils # 8.9 H Seg Neutrophils # Man Lymphocytes # (Manual) Monocytes # (Manual) Eosinophils # (Manual) Basophils # (Manual) PT INR Fibrinogen dRVVT Confirm Interp Factor V Activity POC ABG pH POC ABG pCO2 POC ABG pO2 ABG pO2 ABG HCO3 ABG Base Excess ABG Hemoglobin Oxyhemoglobin Sodium 135 L Potassium 2.9 L* Chloride 97.2 L Carbon Dioxide 19 L BUN Creatinine 1.7 H Glucose 170 H POC Glucose 152 H Lactic Acid Calcium Phosphorus Magnesium Direct Bilirubin AST ALT Alkaline Phosphatase Lactate Dehydrogenase Troponin T C-Reactive Protein Total Protein Albumin Prealbumin Triglycerides 160 H Cholesterol LDL Cholesterol Direct HDL Cholesterol 31 L Urine pH Urine WBC (Auto) Urine Creatinine Urine Total Protein Fluid Total Protein Vancomycin Trough Rheumatoid Factor Complement C4 Miscellaneous Test Crossmatch 09/04/16 09/04/16 09/04/16 11:34 17:46 23:29 WBC RBC Hgb Hct MCV MCH MCHC RDW Plt Count Lymph % (Auto) [place] % (Auto) Lymph # [place] # Baso # Seg Neutrophils % Seg Neuts % (Manual) Lymphocytes % (Manual) Monocytes % (Manual) Eosinophils % (Manual) Basophils % (Manual) Nucleated RBC % Seg Neutrophils # Seg Neutrophils # Man Lymphocytes # (Manual) Monocytes # (Manual) Eosinophils # (Manual) Basophils # (Manual) PT INR Fibrinogen dRVVT Confirm Interp Factor V Activity POC ABG pH POC ABG pCO2 POC ABG pO2 ABG pO2 ABG HCO3 ABG Base Excess ABG Hemoglobin Oxyhemoglobin Sodium Potassium Chloride Carbon Dioxide BUN Creatinine Glucose POC Glucose 165 H 210 H 139 H Lactic Acid Calcium Phosphorus Magnesium Direct Bilirubin AST ALT Alkaline Phosphatase Lactate Dehydrogenase Troponin T C-Reactive Protein Total Protein Albumin Prealbumin Triglycerides Cholesterol LDL Cholesterol Direct HDL Cholesterol Urine pH Urine WBC (Auto) Urine Creatinine Urine Total Protein Fluid Total Protein Vancomycin Trough Rheumatoid Factor Complement C4 Miscellaneous Test Crossmatch 09/05/16 09/05/16 09/05/16 04:05 04:05 05:38 WBC RBC Hgb Hct MCV 76 L D MCH 23 L MCHC RDW 17.8 H Plt Count Lymph % (Auto) [place] % (Auto) Lymph # [place] # Baso # Seg Neutrophils % Seg Neuts % (Manual) Lymphocytes % (Manual) Monocytes % (Manual) Eosinophils % (Manual) Basophils % (Manual) Nucleated RBC % Seg Neutrophils # Seg Neutrophils # Man Lymphocytes # (Manual) Monocytes # (Manual) Eosinophils # (Manual) Basophils # (Manual) PT INR Fibrinogen dRVVT Confirm Interp Factor V Activity POC ABG pH POC ABG pCO2 POC ABG pO2 ABG pO2 ABG HCO3 ABG Base Excess ABG Hemoglobin Oxyhemoglobin Sodium 134 L Potassium Chloride Carbon Dioxide 18 L BUN Creatinine 1.8 H Glucose 192 H POC Glucose 175 H Lactic Acid Calcium Phosphorus Magnesium Direct Bilirubin AST ALT Alkaline Phosphatase Lactate Dehydrogenase Troponin T C-Reactive Protein Total Protein Albumin Prealbumin Triglycerides Cholesterol LDL Cholesterol Direct HDL Cholesterol Urine pH Urine WBC (Auto) Urine Creatinine Urine Total Protein Fluid Total Protein Vancomycin Trough Rheumatoid Factor Complement C4 Miscellaneous Test Crossmatch 09/05/16 09/05/16 09/05/16 11:38 17:48 23:22 WBC RBC Hgb Hct MCV MCH MCHC RDW Plt Count Lymph % (Auto) [place] % (Auto) Lymph # [place] # Baso # Seg Neutrophils % Seg Neuts % (Manual) Lymphocytes % (Manual) Monocytes % (Manual) Eosinophils % (Manual) Basophils % (Manual) Nucleated RBC % Seg Neutrophils # Seg Neutrophils # Man Lymphocytes # (Manual) Monocytes # (Manual) Eosinophils # (Manual) Basophils # (Manual) PT INR Fibrinogen dRVVT Confirm Interp Factor V Activity POC ABG pH POC ABG pCO2 POC ABG pO2 ABG pO2 ABG HCO3 ABG Base Excess ABG Hemoglobin Oxyhemoglobin Sodium Potassium Chloride Carbon Dioxide BUN Creatinine Glucose POC Glucose 164 H 186 H 195 H Lactic Acid Calcium Phosphorus Magnesium Direct Bilirubin AST ALT Alkaline Phosphatase Lactate Dehydrogenase Troponin T C-Reactive Protein Total Protein Albumin Prealbumin Triglycerides Cholesterol LDL Cholesterol Direct HDL Cholesterol Urine pH Urine WBC (Auto) Urine Creatinine Urine Total Protein Fluid Total Protein Vancomycin Trough Rheumatoid Factor Complement C4 Miscellaneous Test Crossmatch 09/06/16 09/06/16 09/06/16 04:12 05:59 07:32 WBC RBC Hgb Hct MCV MCH MCHC RDW Plt Count Lymph % (Auto) [place] % (Auto) Lymph # [place] # Baso # Seg Neutrophils % Seg Neuts % (Manual) Lymphocytes % (Manual) Monocytes % (Manual) Eosinophils % (Manual) Basophils % (Manual) Nucleated RBC % Seg Neutrophils # Seg Neutrophils # Man Lymphocytes # (Manual) Monocytes # (Manual) Eosinophils # (Manual) Basophils # (Manual) PT INR Fibrinogen dRVVT Confirm Interp Factor V Activity POC ABG pH 7.514 H POC ABG pCO2 29.1 L POC ABG pO2 72 L ABG pO2 ABG HCO3 ABG Base Excess ABG Hemoglobin Oxyhemoglobin Sodium 133 L Potassium 3.4 L Chloride 94.9 L Carbon Dioxide 19 L BUN 30 H Creatinine 2.1 H Glucose 139 H POC Glucose 146 H Lactic Acid Calcium Phosphorus Magnesium Direct Bilirubin AST ALT Alkaline Phosphatase Lactate Dehydrogenase Troponin T C-Reactive Protein Total Protein Albumin Prealbumin Triglycerides Cholesterol LDL Cholesterol Direct HDL Cholesterol Urine pH Urine WBC (Auto) Urine Creatinine Urine Total Protein Fluid Total Protein Vancomycin Trough Rheumatoid Factor Complement C4 Miscellaneous Test Crossmatch 09/06/16 09/06/16 09/06/16 11:57 17:58 19:02 WBC RBC Hgb Hct MCV MCH MCHC RDW Plt Count Lymph % (Auto) [place] % (Auto) Lymph # [place] # Baso # Seg Neutrophils % Seg Neuts % (Manual) Lymphocytes % (Manual) Monocytes % (Manual) Eosinophils % (Manual) Basophils % (Manual) Nucleated RBC % Seg Neutrophils # Seg Neutrophils # Man Lymphocytes # (Manual) Monocytes # (Manual) Eosinophils # (Manual) Basophils # (Manual) PT INR Fibrinogen dRVVT Confirm Interp Factor V Activity POC ABG pH 7.465 H POC ABG pCO2 32.0 L POC ABG pO2 ABG pO2 ABG HCO3 ABG Base Excess ABG Hemoglobin Oxyhemoglobin Sodium Potassium Chloride Carbon Dioxide BUN Creatinine Glucose POC Glucose 165 H 160 H Lactic Acid Calcium Phosphorus Magnesium Direct Bilirubin AST ALT Alkaline Phosphatase Lactate Dehydrogenase Troponin T C-Reactive Protein Total Protein Albumin Prealbumin Triglycerides Cholesterol LDL Cholesterol Direct HDL Cholesterol Urine pH Urine WBC (Auto) Urine Creatinine Urine Total Protein Fluid Total Protein Vancomycin Trough Rheumatoid Factor Complement C4 Miscellaneous Test Crossmatch 09/06/16 09/07/16 09/07/16 23:45 02:47 02:47 WBC RBC Hgb Hct MCV MCH MCHC RDW Plt Count Lymph % (Auto) [place] % (Auto) Lymph # [place] # Baso # Seg Neutrophils % Seg Neuts % (Manual) Lymphocytes % (Manual) Monocytes % (Manual) Eosinophils % (Manual) Basophils % (Manual) Nucleated RBC % Seg Neutrophils # Seg Neutrophils # Man Lymphocytes # (Manual) Monocytes # (Manual) Eosinophils # (Manual) Basophils # (Manual) PT INR Fibrinogen dRVVT Confirm Interp Factor V Activity POC ABG pH POC ABG pCO2 POC ABG pO2 ABG pO2 ABG HCO3 ABG Base Excess ABG Hemoglobin Oxyhemoglobin Sodium Potassium Chloride Carbon Dioxide BUN Creatinine Glucose POC Glucose 204 H Lactic Acid Calcium Phosphorus Magnesium Direct Bilirubin AST ALT Alkaline Phosphatase Lactate Dehydrogenase Troponin T C-Reactive Protein Total Protein Albumin Prealbumin Triglycerides Cholesterol LDL Cholesterol Direct HDL Cholesterol Urine pH Urine WBC (Auto) 68.0 H Urine Creatinine 106.1 H Urine Total Protein Fluid Total Protein Vancomycin Trough Rheumatoid Factor Complement C4 Miscellaneous Test Crossmatch 09/07/16 09/07/16 09/07/16 04:50 06:19 06:39 WBC RBC Hgb Hct MCV MCH MCHC RDW Plt Count Lymph % (Auto) [place] % (Auto) Lymph # [place] # Baso # Seg Neutrophils % Seg Neuts % (Manual) Lymphocytes % (Manual) Monocytes % (Manual) Eosinophils % (Manual) Basophils % (Manual) Nucleated RBC % Seg Neutrophils # Seg Neutrophils # Man Lymphocytes # (Manual) Monocytes # (Manual) Eosinophils # (Manual) Basophils # (Manual) PT INR Fibrinogen dRVVT Confirm Interp Factor V Activity POC ABG pH 7.457 H POC ABG pCO2 32.1 L POC ABG pO2 76 L ABG pO2 ABG HCO3 ABG Base Excess ABG Hemoglobin Oxyhemoglobin Sodium 132 L Potassium Chloride 94.7 L Carbon Dioxide BUN 53 H Creatinine 2.9 H Glucose 151 H POC Glucose 149 H Lactic Acid Calcium Phosphorus Magnesium Direct Bilirubin AST ALT Alkaline Phosphatase Lactate Dehydrogenase Troponin T C-Reactive Protein Total Protein Albumin Prealbumin Triglycerides Cholesterol LDL Cholesterol Direct HDL Cholesterol Urine pH Urine WBC (Auto) Urine Creatinine Urine Total Protein Fluid Total Protein Vancomycin Trough Rheumatoid Factor Complement C4 Miscellaneous Test Crossmatch 09/07/16 09/07/16 09/07/16 09:20 11:43 11:43 WBC 19.4 H RBC Hgb 8.3 L Hct 26.4 L D MCV 72 L D MCH 22 L MCHC RDW 17.9 H Plt Count Lymph % (Auto) 8.5 L [place] % (Auto) Lymph # [place] # 1.0 H Baso # Seg Neutrophils % 85.8 H Seg Neuts % (Manual) Lymphocytes % (Manual) Monocytes % (Manual) Eosinophils % (Manual) Basophils % (Manual) Nucleated RBC % Seg Neutrophils # 16.6 H Seg Neutrophils # Man Lymphocytes # (Manual) Monocytes # (Manual) Eosinophils # (Manual) Basophils # (Manual) PT INR Fibrinogen dRVVT Confirm Interp Factor V Activity POC ABG pH POC ABG pCO2 POC ABG pO2 ABG pO2 ABG HCO3 ABG Base Excess ABG Hemoglobin Oxyhemoglobin Sodium 134 L Potassium Chloride 97.2 L Carbon Dioxide 20 L BUN 58 H Creatinine 2.9 H Glucose 147 H POC Glucose Lactic Acid Calcium Phosphorus 2.40 L Magnesium 2.40 H Direct Bilirubin AST ALT Alkaline Phosphatase Lactate Dehydrogenase Troponin T C-Reactive Protein Total Protein 5.8 L Albumin 2.2 L Prealbumin Triglycerides Cholesterol LDL Cholesterol Direct HDL Cholesterol Urine pH Urine WBC (Auto) Urine Creatinine Urine Total Protein Fluid Total Protein Vancomycin Trough Rheumatoid Factor Complement C4 58 H Miscellaneous Test Crossmatch 09/07/16 09/07/16 09/07/16 11:50 16:00 17:31 WBC RBC Hgb Hct MCV MCH MCHC RDW Plt Count Lymph % (Auto) [place] % (Auto) Lymph # [place] # Baso # Seg Neutrophils % Seg Neuts % (Manual) Lymphocytes % (Manual) Monocytes % (Manual) Eosinophils % (Manual) Basophils % (Manual) Nucleated RBC % Seg Neutrophils # Seg Neutrophils # Man Lymphocytes # (Manual) Monocytes # (Manual) Eosinophils # (Manual) Basophils # (Manual) PT INR Fibrinogen dRVVT Confirm Interp Factor V Activity POC ABG pH POC ABG pCO2 POC ABG pO2 158 H ABG pO2 ABG HCO3 ABG Base Excess ABG Hemoglobin Oxyhemoglobin Sodium Potassium Chloride Carbon Dioxide BUN Creatinine Glucose POC Glucose 175 H Lactic Acid Calcium Phosphorus Magnesium Direct Bilirubin AST ALT Alkaline Phosphatase Lactate Dehydrogenase Troponin T C-Reactive Protein Total Protein Albumin Prealbumin Triglycerides Cholesterol LDL Cholesterol Direct HDL Cholesterol Urine pH Urine WBC (Auto) Urine Creatinine 66.3 H Urine Total Protein Fluid Total Protein Vancomycin Trough Rheumatoid Factor Complement C4 Miscellaneous Test Crossmatch 09/07/16 09/08/16 09/08/16 23:50 05:46 06:18 WBC 17.8 H RBC 3.58 L Hgb 8.1 L Hct 25.5 L MCV 71 L MCH 23 L MCHC RDW 18.4 H Plt Count Lymph % (Auto) [place] % (Auto) Lymph # [place] # Baso # Seg Neutrophils % Seg Neuts % (Manual) 92.0 H Lymphocytes % (Manual) 6.0 L Monocytes % (Manual) Eosinophils % (Manual) Basophils % (Manual) Nucleated RBC % Seg Neutrophils # Seg Neutrophils # Man 16.4 H Lymphocytes # (Manual) 1.1 L Monocytes # (Manual) Eosinophils # (Manual) Basophils # (Manual) PT INR Fibrinogen dRVVT Confirm Interp Factor V Activity POC ABG pH POC ABG pCO2 34.3 L POC ABG pO2 71 L ABG pO2 ABG HCO3 ABG Base Excess ABG Hemoglobin Oxyhemoglobin Sodium Potassium Chloride Carbon Dioxide BUN Creatinine Glucose POC Glucose 216 H Lactic Acid Calcium Phosphorus Magnesium Direct Bilirubin AST ALT Alkaline Phosphatase Lactate Dehydrogenase Troponin T C-Reactive Protein Total Protein Albumin Prealbumin Triglycerides Cholesterol LDL Cholesterol Direct HDL Cholesterol Urine pH Urine WBC (Auto) Urine Creatinine Urine Total Protein Fluid Total Protein Vancomycin Trough Rheumatoid Factor Complement C4 Miscellaneous Test Crossmatch 09/08/16 09/08/16 09/08/16 06:18 06:51 10:55 WBC RBC Hgb Hct MCV MCH MCHC RDW Plt Count Lymph % (Auto) [place] % (Auto) Lymph # [place] # Baso # Seg Neutrophils % Seg Neuts % (Manual) Lymphocytes % (Manual) Monocytes % (Manual) Eosinophils % (Manual) Basophils % (Manual) Nucleated RBC % Seg Neutrophils # Seg Neutrophils # Man Lymphocytes # (Manual) Monocytes # (Manual) Eosinophils # (Manual) Basophils # (Manual) PT INR Fibrinogen dRVVT Confirm Interp Factor V Activity POC ABG pH POC ABG pCO2 POC ABG pO2 ABG pO2 ABG HCO3 ABG Base Excess ABG Hemoglobin Oxyhemoglobin Sodium 133 L Potassium Chloride 96.9 L Carbon Dioxide 20 L BUN 63 H Creatinine 2.7 H Glucose 195 H POC Glucose 204 H 169 H Lactic Acid Calcium Phosphorus Magnesium Direct Bilirubin AST ALT Alkaline Phosphatase Lactate Dehydrogenase Troponin T C-Reactive Protein Total Protein Albumin Prealbumin Triglycerides Cholesterol LDL Cholesterol Direct HDL Cholesterol Urine pH Urine WBC (Auto) Urine Creatinine Urine Total Protein Fluid Total Protein Vancomycin Trough Rheumatoid Factor Complement C4 Miscellaneous Test Crossmatch 09/08/16 09/08/16 09/08/16 11:48 11:48 11:48 WBC RBC Hgb Hct MCV MCH MCHC RDW Plt Count Lymph % (Auto) [place] % (Auto) Lymph # [place] # Baso # Seg Neutrophils % Seg Neuts % (Manual) Lymphocytes % (Manual) Monocytes % (Manual) Eosinophils % (Manual) Basophils % (Manual) Nucleated RBC % Seg Neutrophils # Seg Neutrophils # Man Lymphocytes # (Manual) Monocytes # (Manual) Eosinophils # (Manual) Basophils # (Manual) PT INR Fibrinogen 750 H dRVVT Confirm Interp Factor V Activity POC ABG pH POC ABG pCO2 POC ABG pO2 ABG pO2 ABG HCO3 ABG Base Excess ABG Hemoglobin Oxyhemoglobin Sodium Potassium Chloride Carbon Dioxide BUN Creatinine Glucose POC Glucose Lactic Acid Calcium Phosphorus Magnesium Direct Bilirubin AST ALT Alkaline Phosphatase Lactate Dehydrogenase Troponin T C-Reactive Protein 15.70 H Total Protein Albumin Prealbumin Triglycerides Cholesterol LDL Cholesterol Direct HDL Cholesterol Urine pH Urine WBC (Auto) Urine Creatinine Urine Total Protein Fluid Total Protein Vancomycin Trough Rheumatoid Factor 24 H Complement C4 Miscellaneous Test Crossmatch 09/08/16 09/08/16 09/09/16 15:35 18:25 00:24 WBC RBC Hgb Hct MCV MCH MCHC RDW Plt Count Lymph % (Auto) [place] % (Auto) Lymph # [place] # Baso # Seg Neutrophils % Seg Neuts % (Manual) Lymphocytes % (Manual) Monocytes % (Manual) Eosinophils % (Manual) Basophils % (Manual) Nucleated RBC % Seg Neutrophils # Seg Neutrophils # Man Lymphocytes # (Manual) Monocytes # (Manual) Eosinophils # (Manual) Basophils # (Manual) PT INR Fibrinogen dRVVT Confirm Interp Factor V Activity 182 H POC ABG pH POC ABG pCO2 POC ABG pO2 ABG pO2 ABG HCO3 ABG Base Excess ABG Hemoglobin Oxyhemoglobin Sodium Potassium Chloride Carbon Dioxide BUN Creatinine Glucose POC Glucose 184 H 216 H Lactic Acid Calcium Phosphorus Magnesium Direct Bilirubin AST ALT Alkaline Phosphatase Lactate Dehydrogenase Troponin T C-Reactive Protein Total Protein Albumin Prealbumin Triglycerides Cholesterol LDL Cholesterol Direct HDL Cholesterol Urine pH Urine WBC (Auto) Urine Creatinine Urine Total Protein Fluid Total Protein Vancomycin Trough Rheumatoid Factor Complement C4 Miscellaneous Test Crossmatch 09/09/16 09/09/16 09/09/16 03:00 03:00 04:04 WBC 27.9 H RBC Hgb 8.7 L Hct 28.1 L MCV 72 L MCH 22 L MCHC RDW 18.4 H Plt Count 485 H Lymph % (Auto) [place] % (Auto) Lymph # [place] # Baso # Seg Neutrophils % Seg Neuts % (Manual) 77.0 H Lymphocytes % (Manual) 9.0 L Monocytes % (Manual) Eosinophils % (Manual) Basophils % (Manual) Nucleated RBC % Seg Neutrophils # Seg Neutrophils # Man 21.5 H Lymphocytes # (Manual) Monocytes # (Manual) 2.0 H Eosinophils # (Manual) Basophils # (Manual) PT INR Fibrinogen dRVVT Confirm Interp Factor V Activity POC ABG pH POC ABG pCO2 POC ABG pO2 121 H ABG pO2 ABG HCO3 ABG Base Excess ABG Hemoglobin Oxyhemoglobin Sodium 135 L Potassium Chloride 96.3 L Carbon Dioxide 21 L BUN 83 H Creatinine 3.0 H Glucose 135 H POC Glucose Lactic Acid Calcium Phosphorus Magnesium Direct Bilirubin AST ALT Alkaline Phosphatase Lactate Dehydrogenase Troponin T C-Reactive Protein Total Protein Albumin Prealbumin Triglycerides Cholesterol LDL Cholesterol Direct HDL Cholesterol Urine pH Urine WBC (Auto) Urine Creatinine Urine Total Protein Fluid Total Protein Vancomycin Trough Rheumatoid Factor Complement C4 Miscellaneous Test Crossmatch 09/09/16 09/09/16 09/09/16 05:41 11:55 14:13 WBC RBC Hgb Hct MCV MCH MCHC RDW Plt Count Lymph % (Auto) [place] % (Auto) Lymph # [place] # Baso # Seg Neutrophils % Seg Neuts % (Manual) Lymphocytes % (Manual) Monocytes % (Manual) Eosinophils % (Manual) Basophils % (Manual) Nucleated RBC % Seg Neutrophils # Seg Neutrophils # Man Lymphocytes # (Manual) Monocytes # (Manual) Eosinophils # (Manual) Basophils # (Manual) PT INR Fibrinogen dRVVT Confirm Interp Factor V Activity POC ABG pH POC ABG pCO2 POC ABG pO2 ABG pO2 ABG HCO3 ABG Base Excess ABG Hemoglobin Oxyhemoglobin Sodium Potassium Chloride Carbon Dioxide BUN Creatinine Glucose POC Glucose 155 H 186 H Lactic Acid Calcium Phosphorus Magnesium Direct Bilirubin AST ALT Alkaline Phosphatase Lactate Dehydrogenase Troponin T C-Reactive Protein Total Protein Albumin Prealbumin Triglycerides Cholesterol LDL Cholesterol Direct HDL Cholesterol Urine pH Urine WBC (Auto) 25.0 H Urine Creatinine Urine Total Protein Fluid Total Protein Vancomycin Trough Rheumatoid Factor Complement C4 Miscellaneous Test Crossmatch 09/09/16 09/09/16 09/10/16 17:33 23:13 05:09 WBC RBC Hgb Hct MCV MCH MCHC RDW Plt Count Lymph % (Auto) [place] % (Auto) Lymph # [place] # Baso # Seg Neutrophils % Seg Neuts % (Manual) Lymphocytes % (Manual) Monocytes % (Manual) Eosinophils % (Manual) Basophils % (Manual) Nucleated RBC % Seg Neutrophils # Seg Neutrophils # Man Lymphocytes # (Manual) Monocytes # (Manual) Eosinophils # (Manual) Basophils # (Manual) PT INR Fibrinogen dRVVT Confirm Interp Factor V Activity POC ABG pH POC ABG pCO2 POC ABG pO2 74 L ABG pO2 ABG HCO3 ABG Base Excess ABG Hemoglobin Oxyhemoglobin Sodium Potassium Chloride Carbon Dioxide BUN Creatinine Glucose POC Glucose 211 H 215 H Lactic Acid Calcium Phosphorus Magnesium Direct Bilirubin AST ALT Alkaline Phosphatase Lactate Dehydrogenase Troponin T C-Reactive Protein Total Protein Albumin Prealbumin Triglycerides Cholesterol LDL Cholesterol Direct HDL Cholesterol Urine pH Urine WBC (Auto) Urine Creatinine Urine Total Protein Fluid Total Protein Vancomycin Trough Rheumatoid Factor Complement C4 Miscellaneous Test Crossmatch 09/10/16 09/10/16 09/10/16 05:17 05:17 11:31 WBC 15.8 H RBC 3.25 L Hgb 7.3 L Hct 22.9 L MCV 71 L MCH 23 L MCHC RDW 18.4 H Plt Count Lymph % (Auto) [place] % (Auto) Lymph # [place] # Baso # Seg Neutrophils % Seg Neuts % (Manual) 91.0 H Lymphocytes % (Manual) 4.0 L Monocytes % (Manual) Eosinophils % (Manual) Basophils % (Manual) Nucleated RBC % Seg Neutrophils # Seg Neutrophils # Man 14.4 H Lymphocytes # (Manual) 0.6 L Monocytes # (Manual) Eosinophils # (Manual) Basophils # (Manual) PT INR Fibrinogen dRVVT Confirm Interp Factor V Activity POC ABG pH POC ABG pCO2 POC ABG pO2 ABG pO2 ABG HCO3 ABG Base Excess ABG Hemoglobin Oxyhemoglobin Sodium Potassium Chloride Carbon Dioxide 21 L BUN 93 H Creatinine 2.9 H Glucose 146 H POC Glucose 188 H Lactic Acid Calcium 8.1 L Phosphorus Magnesium Direct Bilirubin AST ALT Alkaline Phosphatase Lactate Dehydrogenase Troponin T C-Reactive Protein Total Protein Albumin Prealbumin Triglycerides Cholesterol LDL Cholesterol Direct HDL Cholesterol Urine pH Urine WBC (Auto) Urine Creatinine Urine Total Protein Fluid Total Protein Vancomycin Trough Rheumatoid Factor Complement C4 Miscellaneous Test Crossmatch 09/10/16 09/10/16 09/10/16 13:17 17:20 23:32 WBC RBC Hgb Hct MCV MCH MCHC RDW Plt Count Lymph % (Auto) [place] % (Auto) Lymph # [place] # Baso # Seg Neutrophils % Seg Neuts % (Manual) Lymphocytes % (Manual) Monocytes % (Manual) Eosinophils % (Manual) Basophils % (Manual) Nucleated RBC % Seg Neutrophils # Seg Neutrophils # Man Lymphocytes # (Manual) Monocytes # (Manual) Eosinophils # (Manual) Basophils # (Manual) PT INR Fibrinogen dRVVT Confirm Interp Factor V Activity POC ABG pH POC ABG pCO2 POC ABG pO2 ABG pO2 ABG HCO3 ABG Base Excess ABG Hemoglobin Oxyhemoglobin Sodium Potassium Chloride Carbon Dioxide BUN Creatinine Glucose POC Glucose 199 H 186 H Lactic Acid Calcium Phosphorus Magnesium Direct Bilirubin AST ALT Alkaline Phosphatase Lactate Dehydrogenase Troponin T C-Reactive Protein Total Protein Albumin Prealbumin Triglycerides Cholesterol LDL Cholesterol Direct HDL Cholesterol Urine pH Urine WBC (Auto) Urine Creatinine Urine Total Protein Fluid Total Protein Vancomycin Trough Rheumatoid Factor Complement C4 Miscellaneous Test Crossmatch See Detail 09/11/16 09/11/16 09/11/16 05:10 05:10 05:17 WBC 28.4 H RBC Hgb 9.2 L Hct 29.3 L D MCV 73 L MCH 23 L MCHC RDW 18.9 H Plt Count 452 H Lymph % (Auto) [place] % (Auto) Lymph # [place] # Baso # Seg Neutrophils % Seg Neuts % (Manual) 89.5 H Lymphocytes % (Manual) 2.0 L Monocytes % (Manual) Eosinophils % (Manual) Basophils % (Manual) Nucleated RBC % Seg Neutrophils # Seg Neutrophils # Man 25.4 H Lymphocytes # (Manual) 0.6 L Monocytes # (Manual) 1.3 H Eosinophils # (Manual) Basophils # (Manual) PT INR Fibrinogen dRVVT Confirm Interp Factor V Activity POC ABG pH POC ABG pCO2 POC ABG pO2 ABG pO2 ABG HCO3 ABG Base Excess ABG Hemoglobin Oxyhemoglobin Sodium 136 L Potassium Chloride Carbon Dioxide 18 L BUN 107 H Creatinine 2.6 H Glucose 187 H POC Glucose 230 H Lactic Acid Calcium 8.3 L Phosphorus Magnesium Direct Bilirubin AST ALT Alkaline Phosphatase Lactate Dehydrogenase Troponin T C-Reactive Protein Total Protein Albumin Prealbumin Triglycerides Cholesterol LDL Cholesterol Direct HDL Cholesterol Urine pH Urine WBC (Auto) Urine Creatinine Urine Total Protein Fluid Total Protein Vancomycin Trough Rheumatoid Factor Complement C4 Miscellaneous Test Crossmatch 09/11/16 09/11/16 09/11/16 05:55 12:02 17:32 WBC RBC Hgb Hct MCV MCH MCHC RDW Plt Count Lymph % (Auto) [place] % (Auto) Lymph # [place] # Baso # Seg Neutrophils % Seg Neuts % (Manual) Lymphocytes % (Manual) Monocytes % (Manual) Eosinophils % (Manual) Basophils % (Manual) Nucleated RBC % Seg Neutrophils # Seg Neutrophils # Man Lymphocytes # (Manual) Monocytes # (Manual) Eosinophils # (Manual) Basophils # (Manual) PT INR Fibrinogen dRVVT Confirm Interp Factor V Activity POC ABG pH POC ABG pCO2 33.8 L POC ABG pO2 ABG pO2 ABG HCO3 ABG Base Excess ABG Hemoglobin Oxyhemoglobin Sodium Potassium Chloride Carbon Dioxide BUN Creatinine Glucose POC Glucose 191 H 239 H Lactic Acid Calcium Phosphorus Magnesium Direct Bilirubin AST ALT Alkaline Phosphatase Lactate Dehydrogenase Troponin T C-Reactive Protein Total Protein Albumin Prealbumin Triglycerides Cholesterol LDL Cholesterol Direct HDL Cholesterol Urine pH Urine WBC (Auto) Urine Creatinine Urine Total Protein Fluid Total Protein Vancomycin Trough Rheumatoid Factor Complement C4 Miscellaneous Test Crossmatch 09/11/16 09/12/16 09/12/16 23:52 05:09 05:32 WBC RBC Hgb Hct MCV MCH MCHC RDW Plt Count Lymph % (Auto) [place] % (Auto) Lymph # [place] # Baso # Seg Neutrophils % Seg Neuts % (Manual) Lymphocytes % (Manual) Monocytes % (Manual) Eosinophils % (Manual) Basophils % (Manual) Nucleated RBC % Seg Neutrophils # Seg Neutrophils # Man Lymphocytes # (Manual) Monocytes # (Manual) Eosinophils # (Manual) Basophils # (Manual) PT INR Fibrinogen dRVVT Confirm Interp Factor V Activity POC ABG pH POC ABG pCO2 34.6 L POC ABG pO2 ABG pO2 ABG HCO3 ABG Base Excess ABG Hemoglobin Oxyhemoglobin Sodium Potassium Chloride Carbon Dioxide BUN Creatinine Glucose POC Glucose 265 H 184 H Lactic Acid Calcium Phosphorus Magnesium Direct Bilirubin AST ALT Alkaline Phosphatase Lactate Dehydrogenase Troponin T C-Reactive Protein Total Protein Albumin Prealbumin Triglycerides Cholesterol LDL Cholesterol Direct HDL Cholesterol Urine pH Urine WBC (Auto) Urine Creatinine Urine Total Protein Fluid Total Protein Vancomycin Trough Rheumatoid Factor Complement C4 Miscellaneous Test Crossmatch 09/12/16 09/12/16 09/12/16 06:45 06:45 07:22 WBC 31.7 H RBC 3.54 L Hgb 8.3 L Hct 25.9 L MCV 73 L MCH 23 L MCHC RDW 18.9 H Plt Count Lymph % (Auto) [place] % (Auto) Lymph # [place] # Baso # Seg Neutrophils % Seg Neuts % (Manual) 88.5 H Lymphocytes % (Manual) 4.5 L Monocytes % (Manual) Eosinophils % (Manual) Basophils % (Manual) Nucleated RBC % Seg Neutrophils # Seg Neutrophils # Man 28.1 H Lymphocytes # (Manual) Monocytes # (Manual) 1.0 H Eosinophils # (Manual) Basophils # (Manual) PT INR Fibrinogen dRVVT Confirm Interp Factor V Activity POC ABG pH POC ABG pCO2 POC ABG pO2 ABG pO2 ABG HCO3 ABG Base Excess ABG Hemoglobin Oxyhemoglobin Sodium Potassium Chloride Carbon Dioxide 20 L BUN 115 H Creatinine 2.7 H Glucose 165 H POC Glucose Lactic Acid Calcium 8.0 L Phosphorus Magnesium Direct Bilirubin AST ALT Alkaline Phosphatase Lactate Dehydrogenase Troponin T C-Reactive Protein Total Protein Albumin Prealbumin Triglycerides 217 H Cholesterol LDL Cholesterol Direct HDL Cholesterol Urine pH Urine WBC (Auto) Urine Creatinine Urine Total Protein Fluid Total Protein Vancomycin Trough Rheumatoid Factor Complement C4 Miscellaneous Test Crossmatch 09/12/16 09/12/16 09/12/16 07:22 09:59 12:21 WBC RBC Hgb Hct MCV MCH MCHC RDW Plt Count Lymph % (Auto) [place] % (Auto) Lymph # [place] # Baso # Seg Neutrophils % Seg Neuts % (Manual) Lymphocytes % (Manual) Monocytes % (Manual) Eosinophils % (Manual) Basophils % (Manual) Nucleated RBC % Seg Neutrophils # Seg Neutrophils # Man Lymphocytes # (Manual) Monocytes # (Manual) Eosinophils # (Manual) Basophils # (Manual) PT INR Fibrinogen dRVVT Confirm Interp Positive H Factor V Activity POC ABG pH POC ABG pCO2 POC ABG pO2 ABG pO2 ABG HCO3 ABG Base Excess ABG Hemoglobin Oxyhemoglobin Sodium Potassium Chloride Carbon Dioxide BUN Creatinine Glucose POC Glucose 224 H Lactic Acid Calcium Phosphorus Magnesium Direct Bilirubin AST ALT Alkaline Phosphatase Lactate Dehydrogenase Troponin T C-Reactive Protein 1.70 H Total Protein Albumin Prealbumin Triglycerides Cholesterol LDL Cholesterol Direct HDL Cholesterol Urine pH Urine WBC (Auto) Urine Creatinine Urine Total Protein Fluid Total Protein Vancomycin Trough Rheumatoid Factor Complement C4 Miscellaneous Test Crossmatch 09/12/16 09/12/16 09/13/16 16:51 23:28 04:00 WBC 45.0 H* RBC Hgb 9.4 L Hct MCV 75 L MCH 23 L MCHC RDW 19.0 H Plt Count 470 H Lymph % (Auto) [place] % (Auto) Lymph # [place] # Baso # Seg Neutrophils % Seg Neuts % (Manual) 89.0 H Lymphocytes % (Manual) 5.0 L Monocytes % (Manual) Eosinophils % (Manual) Basophils % (Manual) Nucleated RBC % Seg Neutrophils # Seg Neutrophils # Man 40.1 H Lymphocytes # (Manual) Monocytes # (Manual) Eosinophils # (Manual) Basophils # (Manual) PT INR Fibrinogen dRVVT Confirm Interp Factor V Activity POC ABG pH POC ABG pCO2 POC ABG pO2 ABG pO2 ABG HCO3 ABG Base Excess ABG Hemoglobin Oxyhemoglobin Sodium Potassium Chloride Carbon Dioxide BUN Creatinine Glucose POC Glucose 169 H 150 H Lactic Acid Calcium Phosphorus Magnesium Direct Bilirubin AST ALT Alkaline Phosphatase Lactate Dehydrogenase Troponin T C-Reactive Protein Total Protein Albumin Prealbumin Triglycerides Cholesterol LDL Cholesterol Direct HDL Cholesterol Urine pH Urine WBC (Auto) Urine Creatinine Urine Total Protein Fluid Total Protein Vancomycin Trough Rheumatoid Factor Complement C4 Miscellaneous Test Crossmatch 09/13/16 09/13/16 09/13/16 04:00 11:26 17:31 WBC RBC Hgb Hct MCV MCH MCHC RDW Plt Count Lymph % (Auto) [place] % (Auto) Lymph # [place] # Baso # Seg Neutrophils % Seg Neuts % (Manual) Lymphocytes % (Manual) Monocytes % (Manual) Eosinophils % (Manual) Basophils % (Manual) Nucleated RBC % Seg Neutrophils # Seg Neutrophils # Man Lymphocytes # (Manual) Monocytes # (Manual) Eosinophils # (Manual) Basophils # (Manual) PT INR Fibrinogen dRVVT Confirm Interp Factor V Activity POC ABG pH POC ABG pCO2 POC ABG pO2 ABG pO2 ABG HCO3 ABG Base Excess ABG Hemoglobin Oxyhemoglobin Sodium Potassium Chloride Carbon Dioxide 20 L BUN 116 H Creatinine 3.0 H Glucose 172 H POC Glucose 140 H 183 H Lactic Acid Calcium Phosphorus Magnesium Direct Bilirubin AST ALT Alkaline Phosphatase Lactate Dehydrogenase Troponin T C-Reactive Protein Total Protein 6.2 L Albumin 2.9 L Prealbumin Triglycerides Cholesterol LDL Cholesterol Direct HDL Cholesterol Urine pH Urine WBC (Auto) Urine Creatinine Urine Total Protein Fluid Total Protein Vancomycin Trough Rheumatoid Factor Complement C4 Miscellaneous Test Crossmatch 09/13/16 09/14/16 09/14/16 23:23 04:06 04:07 WBC 29.4 H RBC Hgb 8.9 L Hct 27.3 L MCV 75 L MCH 24 L MCHC RDW 19.1 H Plt Count Lymph % (Auto) [place] % (Auto) Lymph # [place] # Baso # Seg Neutrophils % Seg Neuts % (Manual) 84.0 H Lymphocytes % (Manual) 6.0 L Monocytes % (Manual) 9.0 H Eosinophils % (Manual) Basophils % (Manual) Nucleated RBC % Seg Neutrophils # Seg Neutrophils # Man 24.7 H Lymphocytes # (Manual) Monocytes # (Manual) 2.6 H Eosinophils # (Manual) Basophils # (Manual) PT INR Fibrinogen dRVVT Confirm Interp Factor V Activity POC ABG pH 7.342 L POC ABG pCO2 POC ABG pO2 116 H ABG pO2 ABG HCO3 ABG Base Excess ABG Hemoglobin Oxyhemoglobin Sodium Potassium Chloride Carbon Dioxide BUN Creatinine Glucose POC Glucose 154 H Lactic Acid Calcium Phosphorus Magnesium Direct Bilirubin AST ALT Alkaline Phosphatase Lactate Dehydrogenase Troponin T C-Reactive Protein Total Protein Albumin Prealbumin Triglycerides Cholesterol LDL Cholesterol Direct HDL Cholesterol Urine pH Urine WBC (Auto) Urine Creatinine Urine Total Protein Fluid Total Protein Vancomycin Trough Rheumatoid Factor Complement C4 Miscellaneous Test Crossmatch 09/14/16 09/14/16 09/14/16 04:07 05:29 12:19 WBC RBC Hgb Hct MCV MCH MCHC RDW Plt Count Lymph % (Auto) [place] % (Auto) Lymph # [place] # Baso # Seg Neutrophils % Seg Neuts % (Manual) Lymphocytes % (Manual) Monocytes % (Manual) Eosinophils % (Manual) Basophils % (Manual) Nucleated RBC % Seg Neutrophils # Seg Neutrophils # Man Lymphocytes # (Manual) Monocytes # (Manual) Eosinophils # (Manual) Basophils # (Manual) PT INR Fibrinogen dRVVT Confirm Interp Factor V Activity POC ABG pH POC ABG pCO2 POC ABG pO2 ABG pO2 ABG HCO3 ABG Base Excess ABG Hemoglobin Oxyhemoglobin Sodium 136 L Potassium Chloride Carbon Dioxide 18 L BUN 121 H Creatinine 2.8 H Glucose 214 H POC Glucose 239 H 181 H Lactic Acid Calcium Phosphorus Magnesium Direct Bilirubin AST ALT Alkaline Phosphatase Lactate Dehydrogenase Troponin T C-Reactive Protein Total Protein Albumin Prealbumin Triglycerides Cholesterol LDL Cholesterol Direct HDL Cholesterol Urine pH Urine WBC (Auto) Urine Creatinine Urine Total Protein Fluid Total Protein Vancomycin Trough Rheumatoid Factor Complement C4 Miscellaneous Test Crossmatch 09/14/16 09/14/16 09/15/16 18:12 23:37 05:00 WBC 26.1 H RBC 3.05 L Hgb 7.2 L Hct 22.9 L MCV 75 L MCH 24 L MCHC RDW 19.0 H Plt Count Lymph % (Auto) [place] % (Auto) Lymph # [place] # Baso # Seg Neutrophils % Seg Neuts % (Manual) Lymphocytes % (Manual) Monocytes % (Manual) Eosinophils % (Manual) Basophils % (Manual) Nucleated RBC % Seg Neutrophils # Seg Neutrophils # Man Lymphocytes # (Manual) Monocytes # (Manual) Eosinophils # (Manual) Basophils # (Manual) PT INR Fibrinogen dRVVT Confirm Interp Factor V Activity POC ABG pH POC ABG pCO2 POC ABG pO2 ABG pO2 ABG HCO3 ABG Base Excess ABG Hemoglobin Oxyhemoglobin Sodium Potassium Chloride Carbon Dioxide BUN Creatinine Glucose POC Glucose 266 H 154 H Lactic Acid Calcium Phosphorus Magnesium Direct Bilirubin AST ALT Alkaline Phosphatase Lactate Dehydrogenase Troponin T C-Reactive Protein Total Protein Albumin Prealbumin Triglycerides Cholesterol LDL Cholesterol Direct HDL Cholesterol Urine pH Urine WBC (Auto) Urine Creatinine Urine Total Protein Fluid Total Protein Vancomycin Trough Rheumatoid Factor Complement C4 Miscellaneous Test Crossmatch 09/15/16 09/15/16 09/15/16 05:00 05:17 12:45 WBC RBC Hgb Hct MCV MCH MCHC RDW Plt Count Lymph % (Auto) [place] % (Auto) Lymph # [place] # Baso # Seg Neutrophils % Seg Neuts % (Manual) Lymphocytes % (Manual) Monocytes % (Manual) Eosinophils % (Manual) Basophils % (Manual) Nucleated RBC % Seg Neutrophils # Seg Neutrophils # Man Lymphocytes # (Manual) Monocytes # (Manual) Eosinophils # (Manual) Basophils # (Manual) PT INR Fibrinogen dRVVT Confirm Interp Factor V Activity POC ABG pH POC ABG pCO2 POC ABG pO2 ABG pO2 ABG HCO3 ABG Base Excess ABG Hemoglobin Oxyhemoglobin Sodium Potassium 5.2 H Chloride Carbon Dioxide 18 L BUN 139 H Creatinine 3.7 H Glucose 227 H POC Glucose 226 H 244 H Lactic Acid Calcium 8.3 L Phosphorus Magnesium Direct Bilirubin AST ALT Alkaline Phosphatase Lactate Dehydrogenase Troponin T C-Reactive Protein Total Protein Albumin Prealbumin Triglycerides Cholesterol LDL Cholesterol Direct HDL Cholesterol Urine pH Urine WBC (Auto) Urine Creatinine Urine Total Protein Fluid Total Protein Vancomycin Trough Rheumatoid Factor Complement C4 Miscellaneous Test Crossmatch 09/15/16 09/15/16 09/15/16 14:32 17:33 23:35 WBC RBC Hgb Hct MCV MCH MCHC RDW Plt Count Lymph % (Auto) [place] % (Auto) Lymph # [place] # Baso # Seg Neutrophils % Seg Neuts % (Manual) Lymphocytes % (Manual) Monocytes % (Manual) Eosinophils % (Manual) Basophils % (Manual) Nucleated RBC % Seg Neutrophils # Seg Neutrophils # Man Lymphocytes # (Manual) Monocytes # (Manual) Eosinophils # (Manual) Basophils # (Manual) PT INR Fibrinogen dRVVT Confirm Interp Factor V Activity POC ABG pH POC ABG pCO2 27.7 L POC ABG pO2 120 H ABG pO2 ABG HCO3 ABG Base Excess ABG Hemoglobin Oxyhemoglobin Sodium Potassium Chloride Carbon Dioxide BUN Creatinine Glucose POC Glucose 232 H 167 H Lactic Acid Calcium Phosphorus Magnesium Direct Bilirubin AST ALT Alkaline Phosphatase Lactate Dehydrogenase Troponin T C-Reactive Protein Total Protein Albumin Prealbumin Triglycerides Cholesterol LDL Cholesterol Direct HDL Cholesterol Urine pH Urine WBC (Auto) Urine Creatinine Urine Total Protein Fluid Total Protein Vancomycin Trough Rheumatoid Factor Complement C4 Miscellaneous Test Crossmatch 09/16/16 09/16/16 09/16/16 03:58 10:27 10:27 WBC 19.0 H RBC 2.77 L Hgb 6.5 L Hct 20.9 L MCV 76 L MCH 23 L MCHC RDW 19.3 H Plt Count Lymph % (Auto) 11.0 L [place] % (Auto) Lymph # [place] # 1.1 H Baso # Seg Neutrophils % 82.5 H Seg Neuts % (Manual) Lymphocytes % (Manual) Monocytes % (Manual) Eosinophils % (Manual) Basophils % (Manual) Nucleated RBC % Seg Neutrophils # 15.7 H Seg Neutrophils # Man Lymphocytes # (Manual) Monocytes # (Manual) Eosinophils # (Manual) Basophils # (Manual) PT INR Fibrinogen dRVVT Confirm Interp Factor V Activity POC ABG pH POC ABG pCO2 POC ABG pO2 ABG pO2 ABG HCO3 ABG Base Excess ABG Hemoglobin Oxyhemoglobin Sodium Potassium Chloride 109.3 H Carbon Dioxide 18 L BUN 139 H Creatinine 4.1 H Glucose 144 H POC Glucose 146 H Lactic Acid Calcium 8.1 L Phosphorus Magnesium Direct Bilirubin AST ALT Alkaline Phosphatase Lactate Dehydrogenase Troponin T C-Reactive Protein Total Protein Albumin Prealbumin Triglycerides Cholesterol LDL Cholesterol Direct HDL Cholesterol Urine pH Urine WBC (Auto) Urine Creatinine Urine Total Protein Fluid Total Protein Vancomycin Trough Rheumatoid Factor Complement C4 Miscellaneous Test Crossmatch 09/16/16 09/16/16 09/16/16 12:04 12:10 13:55 WBC RBC Hgb Hct MCV MCH MCHC RDW Plt Count Lymph % (Auto) [place] % (Auto) Lymph # [place] # Baso # Seg Neutrophils % Seg Neuts % (Manual) Lymphocytes % (Manual) Monocytes % (Manual) Eosinophils % (Manual) Basophils % (Manual) Nucleated RBC % Seg Neutrophils # Seg Neutrophils # Man Lymphocytes # (Manual) Monocytes # (Manual) Eosinophils # (Manual) Basophils # (Manual) PT INR Fibrinogen dRVVT Confirm Interp Factor V Activity POC ABG pH POC ABG pCO2 32.9 L POC ABG pO2 ABG pO2 ABG HCO3 ABG Base Excess ABG Hemoglobin Oxyhemoglobin Sodium Potassium Chloride Carbon Dioxide BUN Creatinine Glucose POC Glucose 185 H Lactic Acid Calcium Phosphorus Magnesium Direct Bilirubin AST ALT Alkaline Phosphatase Lactate Dehydrogenase Troponin T C-Reactive Protein Total Protein Albumin Prealbumin Triglycerides Cholesterol LDL Cholesterol Direct HDL Cholesterol Urine pH Urine WBC (Auto) Urine Creatinine Urine Total Protein Fluid Total Protein Vancomycin Trough Rheumatoid Factor Complement C4 Miscellaneous Test Crossmatch See Detail 09/16/16 09/16/16 09/16/16 17:55 19:19 23:48 WBC RBC Hgb Hct MCV MCH MCHC RDW Plt Count Lymph % (Auto) [place] % (Auto) Lymph # [place] # Baso # Seg Neutrophils % Seg Neuts % (Manual) Lymphocytes % (Manual) Monocytes % (Manual) Eosinophils % (Manual) Basophils % (Manual) Nucleated RBC % Seg Neutrophils # Seg Neutrophils # Man Lymphocytes # (Manual) Monocytes # (Manual) Eosinophils # (Manual) Basophils # (Manual) PT INR Fibrinogen dRVVT Confirm Interp Factor V Activity POC ABG pH POC ABG pCO2 POC ABG pO2 ABG pO2 ABG HCO3 ABG Base Excess ABG Hemoglobin Oxyhemoglobin Sodium Potassium Chloride Carbon Dioxide BUN Creatinine Glucose POC Glucose 222 H 107 H Lactic Acid Calcium Phosphorus Magnesium Direct Bilirubin AST ALT Alkaline Phosphatase Lactate Dehydrogenase Troponin T C-Reactive Protein Total Protein Albumin Prealbumin Triglycerides Cholesterol LDL Cholesterol Direct HDL Cholesterol Urine pH Urine WBC (Auto) Urine Creatinine 47.4 H Urine Total Protein 16 H Fluid Total Protein Vancomycin Trough Rheumatoid Factor Complement C4 Miscellaneous Test Crossmatch 09/17/16 09/17/16 09/17/16 03:45 03:45 04:55 WBC 19.6 H RBC 3.41 L Hgb 8.5 L Hct 26.7 L MCV 78 L MCH 25 L MCHC RDW 19.9 H Plt Count Lymph % (Auto) 9.3 L [place] % (Auto) Lymph # [place] # 1.2 H Baso # Seg Neutrophils % 83.9 H Seg Neuts % (Manual) Lymphocytes % (Manual) Monocytes % (Manual) Eosinophils % (Manual) Basophils % (Manual) Nucleated RBC % Seg Neutrophils # 16.4 H Seg Neutrophils # Man Lymphocytes # (Manual) Monocytes # (Manual) Eosinophils # (Manual) Basophils # (Manual) PT INR Fibrinogen dRVVT Confirm Interp Factor V Activity POC ABG pH POC ABG pCO2 POC ABG pO2 ABG pO2 ABG HCO3 ABG Base Excess ABG Hemoglobin Oxyhemoglobin Sodium 146 H Potassium 5.1 H Chloride 110.9 H Carbon Dioxide 16 L BUN 146 H Creatinine 4.0 H Glucose 108 H POC Glucose 133 H Lactic Acid Calcium Phosphorus Magnesium 3.00 H Direct Bilirubin AST ALT Alkaline Phosphatase Lactate Dehydrogenase Troponin T C-Reactive Protein Total Protein Albumin Prealbumin Triglycerides Cholesterol LDL Cholesterol Direct HDL Cholesterol Urine pH Urine WBC (Auto) Urine Creatinine Urine Total Protein Fluid Total Protein Vancomycin Trough Rheumatoid Factor Complement C4 Miscellaneous Test Crossmatch 09/17/16 09/17/16 09/17/16 11:15 17:33 23:47 WBC RBC Hgb Hct MCV MCH MCHC RDW Plt Count Lymph % (Auto) [place] % (Auto) Lymph # [place] # Baso # Seg Neutrophils % Seg Neuts % (Manual) Lymphocytes % (Manual) Monocytes % (Manual) Eosinophils % (Manual) Basophils % (Manual) Nucleated RBC % Seg Neutrophils # Seg Neutrophils # Man Lymphocytes # (Manual) Monocytes # (Manual) Eosinophils # (Manual) Basophils # (Manual) PT INR Fibrinogen dRVVT Confirm Interp Factor V Activity POC ABG pH POC ABG pCO2 POC ABG pO2 ABG pO2 ABG HCO3 ABG Base Excess ABG Hemoglobin Oxyhemoglobin Sodium Potassium Chloride Carbon Dioxide BUN Creatinine Glucose POC Glucose 176 H 246 H 148 H Lactic Acid Calcium Phosphorus Magnesium Direct Bilirubin AST ALT Alkaline Phosphatase Lactate Dehydrogenase Troponin T C-Reactive Protein Total Protein Albumin Prealbumin Triglycerides Cholesterol LDL Cholesterol Direct HDL Cholesterol Urine pH Urine WBC (Auto) Urine Creatinine Urine Total Protein Fluid Total Protein Vancomycin Trough Rheumatoid Factor Complement C4 Miscellaneous Test Crossmatch 09/18/16 09/18/16 09/18/16 05:33 08:31 08:31 WBC 18.0 H RBC 3.17 L Hgb 9.0 L Hct 25.7 L MCV MCH MCHC 35 H RDW 20.4 H Plt Count Lymph % (Auto) [place] % (Auto) Lymph # [place] # Baso # Seg Neutrophils % Seg Neuts % (Manual) Lymphocytes % (Manual) Monocytes % (Manual) Eosinophils % (Manual) Basophils % (Manual) Nucleated RBC % Seg Neutrophils # Seg Neutrophils # Man Lymphocytes # (Manual) Monocytes # (Manual) Eosinophils # (Manual) Basophils # (Manual) PT INR Fibrinogen dRVVT Confirm Interp Factor V Activity POC ABG pH POC ABG pCO2 POC ABG pO2 ABG pO2 ABG HCO3 ABG Base Excess ABG Hemoglobin Oxyhemoglobin Sodium Potassium Chloride Carbon Dioxide 15 L BUN 124 H Creatinine 3.8 H Glucose POC Glucose 120 H Lactic Acid Calcium 8.1 L Phosphorus Magnesium Direct Bilirubin AST ALT Alkaline Phosphatase Lactate Dehydrogenase Troponin T C-Reactive Protein Total Protein Albumin Prealbumin Triglycerides Cholesterol LDL Cholesterol Direct HDL Cholesterol Urine pH Urine WBC (Auto) Urine Creatinine Urine Total Protein Fluid Total Protein Vancomycin Trough Rheumatoid Factor Complement C4 Miscellaneous Test Crossmatch 09/18/16 09/18/16 09/18/16 12:03 15:34 17:50 WBC RBC Hgb Hct MCV MCH MCHC RDW Plt Count Lymph % (Auto) [place] % (Auto) Lymph # [place] # Baso # Seg Neutrophils % Seg Neuts % (Manual) Lymphocytes % (Manual) Monocytes % (Manual) Eosinophils % (Manual) Basophils % (Manual) Nucleated RBC % Seg Neutrophils # Seg Neutrophils # Man Lymphocytes # (Manual) Monocytes # (Manual) Eosinophils # (Manual) Basophils # (Manual) PT INR Fibrinogen dRVVT Confirm Interp Factor V Activity POC ABG pH POC ABG pCO2 25.7 L POC ABG pO2 66 L ABG pO2 ABG HCO3 ABG Base Excess ABG Hemoglobin Oxyhemoglobin Sodium Potassium Chloride Carbon Dioxide BUN Creatinine Glucose POC Glucose 156 H 220 H Lactic Acid Calcium Phosphorus Magnesium Direct Bilirubin AST ALT Alkaline Phosphatase Lactate Dehydrogenase Troponin T C-Reactive Protein Total Protein Albumin Prealbumin Triglycerides Cholesterol LDL Cholesterol Direct HDL Cholesterol Urine pH Urine WBC (Auto) Urine Creatinine Urine Total Protein Fluid Total Protein Vancomycin Trough Rheumatoid Factor Complement C4 Miscellaneous Test Crossmatch 09/19/16 09/19/16 09/19/16 06:21 09:50 09:50 WBC 17.1 H RBC 3.49 L Hgb 9.0 L Hct 28.1 L MCV MCH 26 L MCHC RDW 20.8 H Plt Count Lymph % (Auto) 11.5 L [place] % (Auto) 7.5 H Lymph # [place] # 1.3 H Baso # Seg Neutrophils % 79.8 H Seg Neuts % (Manual) Lymphocytes % (Manual) Monocytes % (Manual) Eosinophils % (Manual) Basophils % (Manual) Nucleated RBC % Seg Neutrophils # 13.7 H Seg Neutrophils # Man Lymphocytes # (Manual) Monocytes # (Manual) Eosinophils # (Manual) Basophils # (Manual) PT INR Fibrinogen dRVVT Confirm Interp Factor V Activity POC ABG pH POC ABG pCO2 POC ABG pO2 ABG pO2 ABG HCO3 ABG Base Excess ABG Hemoglobin Oxyhemoglobin Sodium Potassium Chloride 108.6 H Carbon Dioxide 15 L BUN 125 H Creatinine 4.1 H Glucose 124 H POC Glucose 119 H Lactic Acid Calcium Phosphorus Magnesium Direct Bilirubin AST ALT Alkaline Phosphatase Lactate Dehydrogenase Troponin T C-Reactive Protein Total Protein Albumin Prealbumin Triglycerides Cholesterol LDL Cholesterol Direct HDL Cholesterol Urine pH Urine WBC (Auto) Urine Creatinine Urine Total Protein Fluid Total Protein Vancomycin Trough Rheumatoid Factor Complement C4 Miscellaneous Test Crossmatch 09/19/16 09/19/16 09/19/16 11:25 17:53 23:36 WBC RBC Hgb Hct MCV MCH MCHC RDW Plt Count Lymph % (Auto) [place] % (Auto) Lymph # [place] # Baso # Seg Neutrophils % Seg Neuts % (Manual) Lymphocytes % (Manual) Monocytes % (Manual) Eosinophils % (Manual) Basophils % (Manual) Nucleated RBC % Seg Neutrophils # Seg Neutrophils # Man Lymphocytes # (Manual) Monocytes # (Manual) Eosinophils # (Manual) Basophils # (Manual) PT INR Fibrinogen dRVVT Confirm Interp Factor V Activity POC ABG pH POC ABG pCO2 POC ABG pO2 ABG pO2 ABG HCO3 ABG Base Excess ABG Hemoglobin Oxyhemoglobin Sodium Potassium Chloride Carbon Dioxide BUN Creatinine Glucose POC Glucose 160 H 245 H 121 H Lactic Acid Calcium Phosphorus Magnesium Direct Bilirubin AST ALT Alkaline Phosphatase Lactate Dehydrogenase Troponin T C-Reactive Protein Total Protein Albumin Prealbumin Triglycerides Cholesterol LDL Cholesterol Direct HDL Cholesterol Urine pH Urine WBC (Auto) Urine Creatinine Urine Total Protein Fluid Total Protein Vancomycin Trough Rheumatoid Factor Complement C4 Miscellaneous Test Crossmatch 09/20/16 09/20/16 09/20/16 04:10 04:10 04:10 WBC 17.0 H RBC 3.21 L Hgb 8.2 L Hct 25.5 L MCV MCH 26 L MCHC RDW 20.9 H Plt Count Lymph % (Auto) [place] % (Auto) Lymph # [place] # Baso # Seg Neutrophils % Seg Neuts % (Manual) Lymphocytes % (Manual) Monocytes % (Manual) Eosinophils % (Manual) Basophils % (Manual) Nucleated RBC % Seg Neutrophils # Seg Neutrophils # Man Lymphocytes # (Manual) Monocytes # (Manual) Eosinophils # (Manual) Basophils # (Manual) PT INR Fibrinogen dRVVT Confirm Interp Factor V Activity POC ABG pH POC ABG pCO2 POC ABG pO2 ABG pO2 ABG HCO3 ABG Base Excess ABG Hemoglobin Oxyhemoglobin Sodium Potassium Chloride 111.0 H Carbon Dioxide 16 L BUN 129 H Creatinine 3.7 H Glucose 115 H POC Glucose Lactic Acid Calcium 8.2 L Phosphorus Magnesium Direct Bilirubin AST ALT Alkaline Phosphatase Lactate Dehydrogenase Troponin T C-Reactive Protein Total Protein Albumin Prealbumin Triglycerides 243 H Cholesterol LDL Cholesterol Direct HDL Cholesterol Urine pH Urine WBC (Auto) Urine Creatinine Urine Total Protein Fluid Total Protein Vancomycin Trough Rheumatoid Factor Complement C4 Miscellaneous Test Crossmatch 09/20/16 09/20/16 09/20/16 05:40 11:52 16:50 WBC RBC Hgb Hct MCV MCH MCHC RDW Plt Count Lymph % (Auto) [place] % (Auto) Lymph # [place] # Baso # Seg Neutrophils % Seg Neuts % (Manual) Lymphocytes % (Manual) Monocytes % (Manual) Eosinophils % (Manual) Basophils % (Manual) Nucleated RBC % Seg Neutrophils # Seg Neutrophils # Man Lymphocytes # (Manual) Monocytes # (Manual) Eosinophils # (Manual) Basophils # (Manual) PT INR Fibrinogen dRVVT Confirm Interp Factor V Activity POC ABG pH POC ABG pCO2 POC ABG pO2 ABG pO2 ABG HCO3 ABG Base Excess ABG Hemoglobin Oxyhemoglobin Sodium Potassium Chloride Carbon Dioxide BUN Creatinine Glucose POC Glucose 131 H 183 H 236 H Lactic Acid Calcium Phosphorus Magnesium Direct Bilirubin AST ALT Alkaline Phosphatase Lactate Dehydrogenase Troponin T C-Reactive Protein Total Protein Albumin Prealbumin Triglycerides Cholesterol LDL Cholesterol Direct HDL Cholesterol Urine pH Urine WBC (Auto) Urine Creatinine Urine Total Protein Fluid Total Protein Vancomycin Trough Rheumatoid Factor Complement C4 Miscellaneous Test Crossmatch 09/20/16 09/21/16 09/21/16 23:51 03:30 04:44 WBC RBC Hgb Hct MCV MCH MCHC RDW Plt Count Lymph % (Auto) [place] % (Auto) Lymph # [place] # Baso # Seg Neutrophils % Seg Neuts % (Manual) Lymphocytes % (Manual) Monocytes % (Manual) Eosinophils % (Manual) Basophils % (Manual) Nucleated RBC % Seg Neutrophils # Seg Neutrophils # Man Lymphocytes # (Manual) Monocytes # (Manual) Eosinophils # (Manual) Basophils # (Manual) PT INR Fibrinogen dRVVT Confirm Interp Factor V Activity POC ABG pH POC ABG pCO2 POC ABG pO2 ABG pO2 ABG HCO3 ABG Base Excess ABG Hemoglobin Oxyhemoglobin Sodium Potassium Chloride Carbon Dioxide BUN Creatinine Glucose POC Glucose 114 H 141 H Lactic Acid Calcium Phosphorus Magnesium 2.70 H Direct Bilirubin AST ALT Alkaline Phosphatase Lactate Dehydrogenase Troponin T C-Reactive Protein Total Protein Albumin Prealbumin Triglycerides Cholesterol LDL Cholesterol Direct HDL Cholesterol Urine pH Urine WBC (Auto) Urine Creatinine Urine Total Protein Fluid Total Protein Vancomycin Trough Rheumatoid Factor Complement C4 Miscellaneous Test Crossmatch 09/21/16 09/21/16 09/21/16 07:45 07:45 10:01 WBC 13.8 H RBC 2.94 L Hgb 7.5 L Hct 23.5 L MCV MCH 26 L MCHC RDW 21.2 H Plt Count Lymph % (Auto) 6.9 L [place] % (Auto) 9.4 H Lymph # 0.9 L [place] # 1.3 H Baso # Seg Neutrophils % 83.2 H Seg Neuts % (Manual) Lymphocytes % (Manual) Monocytes % (Manual) Eosinophils % (Manual) Basophils % (Manual) Nucleated RBC % Seg Neutrophils # 11.5 H Seg Neutrophils # Man Lymphocytes # (Manual) Monocytes # (Manual) Eosinophils # (Manual) Basophils # (Manual) PT INR Fibrinogen dRVVT Confirm Interp Factor V Activity POC ABG pH 7.308 L POC ABG pCO2 31.9 L POC ABG pO2 148 H ABG pO2 ABG HCO3 ABG Base Excess ABG Hemoglobin Oxyhemoglobin Sodium 147 H Potassium Chloride 114.2 H Carbon Dioxide 15 L BUN 120 H Creatinine 3.9 H Glucose 156 H POC Glucose Lactic Acid Calcium 8.2 L Phosphorus Magnesium Direct Bilirubin AST ALT Alkaline Phosphatase Lactate Dehydrogenase Troponin T C-Reactive Protein Total Protein Albumin Prealbumin Triglycerides Cholesterol LDL Cholesterol Direct HDL Cholesterol Urine pH Urine WBC (Auto) Urine Creatinine Urine Total Protein Fluid Total Protein Vancomycin Trough Rheumatoid Factor Complement C4 Miscellaneous Test Crossmatch 09/21/16 09/21/16 09/21/16 12:00 12:03 13:00 WBC RBC Hgb Hct MCV MCH MCHC RDW Plt Count Lymph % (Auto) [place] % (Auto) Lymph # [place] # Baso # Seg Neutrophils % Seg Neuts % (Manual) Lymphocytes % (Manual) Monocytes % (Manual) Eosinophils % (Manual) Basophils % (Manual) Nucleated RBC % Seg Neutrophils # Seg Neutrophils # Man Lymphocytes # (Manual) Monocytes # (Manual) Eosinophils # (Manual) Basophils # (Manual) PT INR Fibrinogen dRVVT Confirm Interp Factor V Activity POC ABG pH POC ABG pCO2 POC ABG pO2 ABG pO2 ABG HCO3 ABG Base Excess ABG Hemoglobin Oxyhemoglobin Sodium Potassium Chloride Carbon Dioxide BUN Creatinine Glucose POC Glucose 163 H Lactic Acid Calcium Phosphorus Magnesium Direct Bilirubin AST ALT Alkaline Phosphatase Lactate Dehydrogenase Troponin T C-Reactive Protein Total Protein Albumin Prealbumin Triglycerides Cholesterol LDL Cholesterol Direct HDL Cholesterol Urine pH Urine WBC (Auto) Urine Creatinine 54.8 H Urine Total Protein Fluid Total Protein Vancomycin Trough 2.3 L Rheumatoid Factor Complement C4 Miscellaneous Test Crossmatch 09/21/16 09/21/16 09/22/16 16:51 23:17 06:27 WBC RBC Hgb Hct MCV MCH MCHC RDW Plt Count Lymph % (Auto) [place] % (Auto) Lymph # [place] # Baso # Seg Neutrophils % Seg Neuts % (Manual) Lymphocytes % (Manual) Monocytes % (Manual) Eosinophils % (Manual) Basophils % (Manual) Nucleated RBC % Seg Neutrophils # Seg Neutrophils # Man Lymphocytes # (Manual) Monocytes # (Manual) Eosinophils # (Manual) Basophils # (Manual) PT INR Fibrinogen dRVVT Confirm Interp Factor V Activity POC ABG pH POC ABG pCO2 POC ABG pO2 ABG pO2 ABG HCO3 ABG Base Excess ABG Hemoglobin Oxyhemoglobin Sodium Potassium Chloride Carbon Dioxide BUN Creatinine Glucose POC Glucose 206 H 114 H 115 H Lactic Acid Calcium Phosphorus Magnesium Direct Bilirubin AST ALT Alkaline Phosphatase Lactate Dehydrogenase Troponin T C-Reactive Protein Total Protein Albumin Prealbumin Triglycerides Cholesterol LDL Cholesterol Direct HDL Cholesterol Urine pH Urine WBC (Auto) Urine Creatinine Urine Total Protein Fluid Total Protein Vancomycin Trough Rheumatoid Factor Complement C4 Miscellaneous Test Crossmatch 09/22/16 09/22/16 09/22/16 07:50 07:50 12:00 WBC 17.8 H RBC 3.04 L Hgb 8.0 L Hct 24.7 L MCV MCH 26 L MCHC RDW 21.6 H Plt Count Lymph % (Auto) [place] % (Auto) Lymph # [place] # Baso # Seg Neutrophils % Seg Neuts % (Manual) Lymphocytes % (Manual) Monocytes % (Manual) Eosinophils % (Manual) Basophils % (Manual) Nucleated RBC % Seg Neutrophils # Seg Neutrophils # Man Lymphocytes # (Manual) Monocytes # (Manual) Eosinophils # (Manual) Basophils # (Manual) PT INR Fibrinogen dRVVT Confirm Interp Factor V Activity POC ABG pH POC ABG pCO2 POC ABG pO2 ABG pO2 ABG HCO3 ABG Base Excess ABG Hemoglobin Oxyhemoglobin Sodium 150 H Potassium Chloride 118.2 H Carbon Dioxide 14 L BUN 111 H Creatinine 3.7 H Glucose 157 H POC Glucose 183 H Lactic Acid Calcium Phosphorus Magnesium Direct Bilirubin AST ALT Alkaline Phosphatase Lactate Dehydrogenase Troponin T C-Reactive Protein Total Protein Albumin Prealbumin Triglycerides Cholesterol LDL Cholesterol Direct HDL Cholesterol Urine pH Urine WBC (Auto) Urine Creatinine Urine Total Protein Fluid Total Protein Vancomycin Trough Rheumatoid Factor Complement C4 Miscellaneous Test Crossmatch 09/22/16 09/22/16 09/23/16 17:29 23:10 05:00 WBC 19.2 H RBC 3.13 L Hgb 8.0 L Hct 25.2 L MCV MCH 26 L MCHC RDW 22.1 H Plt Count Lymph % (Auto) [place] % (Auto) Lymph # [place] # Baso # Seg Neutrophils % Seg Neuts % (Manual) 92.0 H Lymphocytes % (Manual) 3.0 L Monocytes % (Manual) Eosinophils % (Manual) Basophils % (Manual) Nucleated RBC % Seg Neutrophils # Seg Neutrophils # Man 17.7 H Lymphocytes # (Manual) 0.6 L Monocytes # (Manual) Eosinophils # (Manual) Basophils # (Manual) PT INR Fibrinogen dRVVT Confirm Interp Factor V Activity POC ABG pH POC ABG pCO2 POC ABG pO2 ABG pO2 ABG HCO3 ABG Base Excess ABG Hemoglobin Oxyhemoglobin Sodium Potassium Chloride Carbon Dioxide BUN Creatinine Glucose POC Glucose 197 H 169 H Lactic Acid Calcium Phosphorus Magnesium Direct Bilirubin AST ALT Alkaline Phosphatase Lactate Dehydrogenase Troponin T C-Reactive Protein Total Protein Albumin Prealbumin Triglycerides Cholesterol LDL Cholesterol Direct HDL Cholesterol Urine pH Urine WBC (Auto) Urine Creatinine Urine Total Protein Fluid Total Protein Vancomycin Trough Rheumatoid Factor Complement C4 Miscellaneous Test Crossmatch 09/23/16 09/23/16 09/23/16 05:00 05:00 05:10 WBC RBC Hgb Hct MCV MCH MCHC RDW Plt Count Lymph % (Auto) [place] % (Auto) Lymph # [place] # Baso # Seg Neutrophils % Seg Neuts % (Manual) Lymphocytes % (Manual) Monocytes % (Manual) Eosinophils % (Manual) Basophils % (Manual) Nucleated RBC % Seg Neutrophils # Seg Neutrophils # Man Lymphocytes # (Manual) Monocytes # (Manual) Eosinophils # (Manual) Basophils # (Manual) PT INR Fibrinogen dRVVT Confirm Interp Factor V Activity POC ABG pH POC ABG pCO2 POC ABG pO2 ABG pO2 ABG HCO3 ABG Base Excess ABG Hemoglobin Oxyhemoglobin Sodium 147 H Potassium 3.2 L Chloride 115.7 H Carbon Dioxide 13 L BUN 111 H Creatinine 3.8 H Glucose 194 H POC Glucose 188 H Lactic Acid Calcium 7.3 L D Phosphorus Magnesium Direct Bilirubin AST ALT Alkaline Phosphatase Lactate Dehydrogenase Troponin T C-Reactive Protein 3.20 H Total Protein Albumin Prealbumin Triglycerides Cholesterol LDL Cholesterol Direct HDL Cholesterol Urine pH Urine WBC (Auto) Urine Creatinine Urine Total Protein Fluid Total Protein Vancomycin Trough Rheumatoid Factor Complement C4 Miscellaneous Test Crossmatch 09/23/16 09/23/16 09/23/16 11:37 12:29 18:01 WBC RBC Hgb Hct MCV MCH MCHC RDW Plt Count Lymph % (Auto) [place] % (Auto) Lymph # [place] # Baso # Seg Neutrophils % Seg Neuts % (Manual) Lymphocytes % (Manual) Monocytes % (Manual) Eosinophils % (Manual) Basophils % (Manual) Nucleated RBC % Seg Neutrophils # Seg Neutrophils # Man Lymphocytes # (Manual) Monocytes # (Manual) Eosinophils # (Manual) Basophils # (Manual) PT INR Fibrinogen dRVVT Confirm Interp Factor V Activity POC ABG pH POC ABG pCO2 18.9 L POC ABG pO2 143 H ABG pO2 ABG HCO3 ABG Base Excess ABG Hemoglobin Oxyhemoglobin Sodium Potassium Chloride Carbon Dioxide BUN Creatinine Glucose POC Glucose 153 H 108 H Lactic Acid Calcium Phosphorus Magnesium Direct Bilirubin AST ALT Alkaline Phosphatase Lactate Dehydrogenase Troponin T C-Reactive Protein Total Protein Albumin Prealbumin Triglycerides Cholesterol LDL Cholesterol Direct HDL Cholesterol Urine pH Urine WBC (Auto) Urine Creatinine Urine Total Protein Fluid Total Protein Vancomycin Trough Rheumatoid Factor Complement C4 Miscellaneous Test Crossmatch 09/23/16 09/23/16 09/24/16 21:19 23:43 05:16 WBC RBC Hgb Hct MCV MCH MCHC RDW Plt Count Lymph % (Auto) [place] % (Auto) Lymph # [place] # Baso # Seg Neutrophils % Seg Neuts % (Manual) Lymphocytes % (Manual) Monocytes % (Manual) Eosinophils % (Manual) Basophils % (Manual) Nucleated RBC % Seg Neutrophils # Seg Neutrophils # Man Lymphocytes # (Manual) Monocytes # (Manual) Eosinophils # (Manual) Basophils # (Manual) PT INR Fibrinogen dRVVT Confirm Interp Factor V Activity POC ABG pH POC ABG pCO2 17.3 L POC ABG pO2 112 H ABG pO2 ABG HCO3 ABG Base Excess ABG Hemoglobin Oxyhemoglobin Sodium Potassium Chloride Carbon Dioxide BUN Creatinine Glucose POC Glucose 143 H 164 H Lactic Acid Calcium Phosphorus Magnesium Direct Bilirubin AST ALT Alkaline Phosphatase Lactate Dehydrogenase Troponin T C-Reactive Protein Total Protein Albumin Prealbumin Triglycerides Cholesterol LDL Cholesterol Direct HDL Cholesterol Urine pH Urine WBC (Auto) Urine Creatinine Urine Total Protein Fluid Total Protein Vancomycin Trough Rheumatoid Factor Complement C4 Miscellaneous Test Crossmatch 09/24/16 09/24/16 09/24/16 05:21 11:58 17:06 WBC RBC Hgb Hct MCV MCH MCHC RDW Plt Count Lymph % (Auto) [place] % (Auto) Lymph # [place] # Baso # Seg Neutrophils % Seg Neuts % (Manual) Lymphocytes % (Manual) Monocytes % (Manual) Eosinophils % (Manual) Basophils % (Manual) Nucleated RBC % Seg Neutrophils # Seg Neutrophils # Man Lymphocytes # (Manual) Monocytes # (Manual) Eosinophils # (Manual) Basophils # (Manual) PT INR Fibrinogen dRVVT Confirm Interp Factor V Activity POC ABG pH POC ABG pCO2 POC ABG pO2 ABG pO2 ABG HCO3 ABG Base Excess ABG Hemoglobin Oxyhemoglobin Sodium Potassium Chloride Carbon Dioxide 10 L BUN 103 H Creatinine 4.3 H Glucose 163 H POC Glucose 173 H 167 H Lactic Acid Calcium 6.5 L Phosphorus Magnesium Direct Bilirubin AST ALT Alkaline Phosphatase Lactate Dehydrogenase Troponin T C-Reactive Protein Total Protein Albumin Prealbumin Triglycerides Cholesterol LDL Cholesterol Direct HDL Cholesterol Urine pH Urine WBC (Auto) Urine Creatinine Urine Total Protein Fluid Total Protein Vancomycin Trough Rheumatoid Factor Complement C4 Miscellaneous Test Crossmatch 09/24/16 09/24/16 09/24/16 20:15 21:02 23:48 WBC RBC Hgb Hct MCV MCH MCHC RDW Plt Count Lymph % (Auto) [place] % (Auto) Lymph # [place] # Baso # Seg Neutrophils % Seg Neuts % (Manual) Lymphocytes % (Manual) Monocytes % (Manual) Eosinophils % (Manual) Basophils % (Manual) Nucleated RBC % Seg Neutrophils # Seg Neutrophils # Man Lymphocytes # (Manual) Monocytes # (Manual) Eosinophils # (Manual) Basophils # (Manual) PT INR Fibrinogen dRVVT Confirm Interp Factor V Activity POC ABG pH 7.288 L POC ABG pCO2 30.2 L 21.5 L POC ABG pO2 32 L 39 L ABG pO2 ABG HCO3 ABG Base Excess ABG Hemoglobin Oxyhemoglobin Sodium Potassium Chloride Carbon Dioxide BUN Creatinine Glucose POC Glucose 109 H Lactic Acid Calcium Phosphorus Magnesium Direct Bilirubin AST ALT Alkaline Phosphatase Lactate Dehydrogenase Troponin T C-Reactive Protein Total Protein Albumin Prealbumin Triglycerides Cholesterol LDL Cholesterol Direct HDL Cholesterol Urine pH Urine WBC (Auto) Urine Creatinine Urine Total Protein Fluid Total Protein Vancomycin Trough Rheumatoid Factor Complement C4 Miscellaneous Test Crossmatch 09/25/16 09/25/16 09/25/16 04:20 04:20 04:20 WBC RBC 2.58 L Hgb 7.0 L Hct 21.0 L MCV MCH 27 L MCHC RDW 23.8 H Plt Count Lymph % (Auto) [place] % (Auto) Lymph # [place] # Baso # Seg Neutrophils % Seg Neuts % (Manual) Lymphocytes % (Manual) 12.0 L Monocytes % (Manual) Eosinophils % (Manual) 7.0 H Basophils % (Manual) 2.0 H Nucleated RBC % Seg Neutrophils # Seg Neutrophils # Man Lymphocytes # (Manual) 0.9 L Monocytes # (Manual) Eosinophils # (Manual) 0.5 H Basophils # (Manual) PT INR Fibrinogen dRVVT Confirm Interp Factor V Activity POC ABG pH POC ABG pCO2 POC ABG pO2 ABG pO2 ABG HCO3 ABG Base Excess ABG Hemoglobin Oxyhemoglobin Sodium Potassium Chloride Carbon Dioxide 15 L BUN 72 H Creatinine 3.8 H Glucose POC Glucose Lactic Acid Calcium 6.0 L Phosphorus 4.60 H Magnesium 1.60 L Direct Bilirubin AST ALT Alkaline Phosphatase Lactate Dehydrogenase Troponin T C-Reactive Protein Total Protein Albumin Prealbumin Triglycerides Cholesterol LDL Cholesterol Direct HDL Cholesterol Urine pH Urine WBC (Auto) Urine Creatinine Urine Total Protein Fluid Total Protein Vancomycin Trough Rheumatoid Factor Complement C4 Miscellaneous Test Crossmatch 09/25/16 09/25/16 09/25/16 04:57 08:02 10:30 WBC RBC Hgb Hct MCV MCH MCHC RDW Plt Count Lymph % (Auto) [place] % (Auto) Lymph # [place] # Baso # Seg Neutrophils % Seg Neuts % (Manual) Lymphocytes % (Manual) Monocytes % (Manual) Eosinophils % (Manual) Basophils % (Manual) Nucleated RBC % Seg Neutrophils # Seg Neutrophils # Man Lymphocytes # (Manual) Monocytes # (Manual) Eosinophils # (Manual) Basophils # (Manual) PT INR Fibrinogen dRVVT Confirm Interp Factor V Activity POC ABG pH POC ABG pCO2 24.7 L POC ABG pO2 152 H ABG pO2 ABG HCO3 ABG Base Excess ABG Hemoglobin Oxyhemoglobin Sodium Potassium Chloride Carbon Dioxide BUN Creatinine Glucose POC Glucose 113 H Lactic Acid Calcium Phosphorus Magnesium Direct Bilirubin AST ALT Alkaline Phosphatase Lactate Dehydrogenase Troponin T C-Reactive Protein Total Protein Albumin Prealbumin Triglycerides Cholesterol LDL Cholesterol Direct HDL Cholesterol Urine pH Urine WBC (Auto) Urine Creatinine Urine Total Protein Fluid Total Protein Vancomycin Trough Rheumatoid Factor Complement C4 Miscellaneous Test Crossmatch See Detail 09/25/16 09/25/16 09/25/16 12:05 17:44 23:47 WBC RBC Hgb Hct MCV MCH MCHC RDW Plt Count Lymph % (Auto) [place] % (Auto) Lymph # [place] # Baso # Seg Neutrophils % Seg Neuts % (Manual) Lymphocytes % (Manual) Monocytes % (Manual) Eosinophils % (Manual) Basophils % (Manual) Nucleated RBC % Seg Neutrophils # Seg Neutrophils # Man Lymphocytes # (Manual) Monocytes # (Manual) Eosinophils # (Manual) Basophils # (Manual) PT INR Fibrinogen dRVVT Confirm Interp Factor V Activity POC ABG pH POC ABG pCO2 POC ABG pO2 ABG pO2 ABG HCO3 ABG Base Excess ABG Hemoglobin Oxyhemoglobin Sodium Potassium Chloride Carbon Dioxide BUN Creatinine Glucose POC Glucose 117 H 119 H 150 H Lactic Acid Calcium Phosphorus Magnesium Direct Bilirubin AST ALT Alkaline Phosphatase Lactate Dehydrogenase Troponin T C-Reactive Protein Total Protein Albumin Prealbumin Triglycerides Cholesterol LDL Cholesterol Direct HDL Cholesterol Urine pH Urine WBC (Auto) Urine Creatinine Urine Total Protein Fluid Total Protein Vancomycin Trough Rheumatoid Factor Complement C4 Miscellaneous Test Crossmatch 09/26/16 09/26/16 09/26/16 04:25 04:25 04:25 WBC RBC 2.65 L Hgb 7.4 L Hct 21.6 L MCV MCH MCHC RDW 22.5 H Plt Count Lymph % (Auto) [place] % (Auto) Lymph # [place] # Baso # Seg Neutrophils % Seg Neuts % (Manual) Lymphocytes % (Manual) 6.0 L Monocytes % (Manual) Eosinophils % (Manual) 11.0 H Basophils % (Manual) Nucleated RBC % Seg Neutrophils # Seg Neutrophils # Man Lymphocytes # (Manual) 0.4 L Monocytes # (Manual) Eosinophils # (Manual) 0.6 H Basophils # (Manual) PT INR Fibrinogen dRVVT Confirm Interp Factor V Activity POC ABG pH POC ABG pCO2 POC ABG pO2 ABG pO2 ABG HCO3 ABG Base Excess ABG Hemoglobin Oxyhemoglobin Sodium Potassium Chloride 97.0 L Carbon Dioxide 19 L BUN 43 H Creatinine 2.6 H Glucose 130 H POC Glucose Lactic Acid 4.40 H* Calcium 6.7 L Phosphorus Magnesium Direct Bilirubin AST ALT Alkaline Phosphatase Lactate Dehydrogenase Troponin T C-Reactive Protein Total Protein Albumin Prealbumin Triglycerides Cholesterol LDL Cholesterol Direct HDL Cholesterol Urine pH Urine WBC (Auto) Urine Creatinine Urine Total Protein Fluid Total Protein Vancomycin Trough Rheumatoid Factor Complement C4 Miscellaneous Test Crossmatch 09/26/16 09/26/16 09/26/16 05:20 11:44 12:12 WBC RBC Hgb Hct MCV MCH MCHC RDW Plt Count Lymph % (Auto) [place] % (Auto) Lymph # [place] # Baso # Seg Neutrophils % Seg Neuts % (Manual) Lymphocytes % (Manual) Monocytes % (Manual) Eosinophils % (Manual) Basophils % (Manual) Nucleated RBC % Seg Neutrophils # Seg Neutrophils # Man Lymphocytes # (Manual) Monocytes # (Manual) Eosinophils # (Manual) Basophils # (Manual) PT INR Fibrinogen dRVVT Confirm Interp Factor V Activity POC ABG pH POC ABG pCO2 27.0 L POC ABG pO2 69 L ABG pO2 ABG HCO3 ABG Base Excess ABG Hemoglobin Oxyhemoglobin Sodium Potassium Chloride Carbon Dioxide BUN Creatinine Glucose POC Glucose 121 H 128 H Lactic Acid Calcium Phosphorus Magnesium Direct Bilirubin AST ALT Alkaline Phosphatase Lactate Dehydrogenase Troponin T C-Reactive Protein Total Protein Albumin Prealbumin Triglycerides Cholesterol LDL Cholesterol Direct HDL Cholesterol Urine pH Urine WBC (Auto) Urine Creatinine Urine Total Protein Fluid Total Protein Vancomycin Trough Rheumatoid Factor Complement C4 Miscellaneous Test Crossmatch 09/26/16 09/26/16 09/27/16 18:31 23:40 08:20 WBC RBC Hgb Hct MCV MCH MCHC RDW Plt Count Lymph % (Auto) [place] % (Auto) Lymph # [place] # Baso # Seg Neutrophils % Seg Neuts % (Manual) Lymphocytes % (Manual) Monocytes % (Manual) Eosinophils % (Manual) Basophils % (Manual) Nucleated RBC % Seg Neutrophils # Seg Neutrophils # Man Lymphocytes # (Manual) Monocytes # (Manual) Eosinophils # (Manual) Basophils # (Manual) PT INR Fibrinogen dRVVT Confirm Interp Factor V Activity POC ABG pH POC ABG pCO2 POC ABG pO2 ABG pO2 ABG HCO3 ABG Base Excess ABG Hemoglobin Oxyhemoglobin Sodium Potassium Chloride Carbon Dioxide BUN Creatinine Glucose POC Glucose 120 H 133 H Lactic Acid 4.10 H* Calcium Phosphorus Magnesium Direct Bilirubin AST ALT Alkaline Phosphatase Lactate Dehydrogenase Troponin T C-Reactive Protein Total Protein Albumin Prealbumin Triglycerides Cholesterol LDL Cholesterol Direct HDL Cholesterol Urine pH Urine WBC (Auto) Urine Creatinine Urine Total Protein Fluid Total Protein Vancomycin Trough Rheumatoid Factor Complement C4 Miscellaneous Test Crossmatch 09/27/16 09/27/16 09/27/16 11:23 15:00 18:15 WBC RBC Hgb Hct MCV MCH MCHC RDW Plt Count Lymph % (Auto) [place] % (Auto) Lymph # [place] # Baso # Seg Neutrophils % Seg Neuts % (Manual) Lymphocytes % (Manual) Monocytes % (Manual) Eosinophils % (Manual) Basophils % (Manual) Nucleated RBC % Seg Neutrophils # Seg Neutrophils # Man Lymphocytes # (Manual) Monocytes # (Manual) Eosinophils # (Manual) Basophils # (Manual) PT INR Fibrinogen dRVVT Confirm Interp Factor V Activity POC ABG pH 7.459 H POC ABG pCO2 27.1 L POC ABG pO2 140 H ABG pO2 ABG HCO3 ABG Base Excess ABG Hemoglobin Oxyhemoglobin Sodium Potassium Chloride Carbon Dioxide BUN Creatinine Glucose POC Glucose 114 H 127 H Lactic Acid Calcium Phosphorus Magnesium Direct Bilirubin AST ALT Alkaline Phosphatase Lactate Dehydrogenase Troponin T C-Reactive Protein Total Protein Albumin Prealbumin Triglycerides Cholesterol LDL Cholesterol Direct HDL Cholesterol Urine pH Urine WBC (Auto) Urine Creatinine Urine Total Protein Fluid Total Protein Vancomycin Trough Rheumatoid Factor Complement C4 Miscellaneous Test Crossmatch 09/27/16 09/27/16 09/28/16 Unknown Unknown 03:45 WBC RBC 2.49 L Hgb 6.8 L Hct 20.7 L MCV MCH 27 L MCHC RDW 22.1 H Plt Count Lymph % (Auto) [place] % (Auto) Lymph # [place] # Baso # Seg Neutrophils % Seg Neuts % (Manual) 32.0 L Lymphocytes % (Manual) 12.0 L Monocytes % (Manual) 11.0 H Eosinophils % (Manual) 10.0 H Basophils % (Manual) Nucleated RBC % Seg Neutrophils # Seg Neutrophils # Man Lymphocytes # (Manual) 1.0 L Monocytes # (Manual) 0.9 H Eosinophils # (Manual) 0.8 H Basophils # (Manual) PT INR Fibrinogen dRVVT Confirm Interp Factor V Activity POC ABG pH POC ABG pCO2 POC ABG pO2 ABG pO2 ABG HCO3 ABG Base Excess ABG Hemoglobin Oxyhemoglobin Sodium 135 L 135 L Potassium 3.5 L Chloride 93.6 L 94.4 L Carbon Dioxide 17 L 21 L BUN 45 H 28 H Creatinine 3.3 H 2.5 H Glucose 106 H POC Glucose Lactic Acid Calcium 7.3 L 7.1 L Phosphorus Magnesium Direct Bilirubin AST ALT Alkaline Phosphatase Lactate Dehydrogenase Troponin T C-Reactive Protein Total Protein Albumin Prealbumin Triglycerides Cholesterol LDL Cholesterol Direct HDL Cholesterol Urine pH Urine WBC (Auto) Urine Creatinine Urine Total Protein Fluid Total Protein Vancomycin Trough Rheumatoid Factor Complement C4 Miscellaneous Test Crossmatch 09/28/16 09/28/16 09/28/16 03:45 07:25 11:58 WBC 13.3 H RBC 3.01 L Hgb 8.4 L Hct 25.0 L MCV MCH MCHC RDW 20.5 H Plt Count 128 L Lymph % (Auto) [place] % (Auto) Lymph # [place] # Baso # Seg Neutrophils % Seg Neuts % (Manual) Lymphocytes % (Manual) 7.0 L Monocytes % (Manual) Eosinophils % (Manual) 6.0 H Basophils % (Manual) Nucleated RBC % Seg Neutrophils # Seg Neutrophils # Man Lymphocytes # (Manual) 0.9 L Monocytes # (Manual) Eosinophils # (Manual) 0.8 H Basophils # (Manual) PT INR Fibrinogen dRVVT Confirm Interp Factor V Activity POC ABG pH POC ABG pCO2 POC ABG pO2 ABG pO2 ABG HCO3 ABG Base Excess ABG Hemoglobin Oxyhemoglobin Sodium Potassium Chloride Carbon Dioxide BUN Creatinine Glucose POC Glucose 121 H Lactic Acid 4.50 H* Calcium Phosphorus Magnesium Direct Bilirubin AST ALT Alkaline Phosphatase Lactate Dehydrogenase Troponin T C-Reactive Protein Total Protein Albumin Prealbumin Triglycerides Cholesterol LDL Cholesterol Direct HDL Cholesterol Urine pH Urine WBC (Auto) Urine Creatinine Urine Total Protein Fluid Total Protein Vancomycin Trough Rheumatoid Factor Complement C4 Miscellaneous Test Crossmatch 09/29/16 09/29/16 09/29/16 06:45 06:45 06:45 WBC 14.9 H RBC 2.74 L Hgb 7.6 L Hct 23.2 L MCV MCH MCHC RDW 20.5 H Plt Count 81 L Lymph % (Auto) [place] % (Auto) Lymph # [place] # Baso # Seg Neutrophils % Seg Neuts % (Manual) 81.0 H Lymphocytes % (Manual) 4.0 L Monocytes % (Manual) Eosinophils % (Manual) Basophils % (Manual) Nucleated RBC % Seg Neutrophils # Seg Neutrophils # Man 12.1 H Lymphocytes # (Manual) 0.6 L Monocytes # (Manual) Eosinophils # (Manual) Basophils # (Manual) PT INR Fibrinogen dRVVT Confirm Interp Factor V Activity POC ABG pH POC ABG pCO2 POC ABG pO2 ABG pO2 ABG HCO3 ABG Base Excess ABG Hemoglobin Oxyhemoglobin Sodium 133 L Potassium 3.4 L Chloride 92.5 L Carbon Dioxide 21 L BUN 33 H Creatinine 3.0 H Glucose POC Glucose Lactic Acid Calcium 6.6 L Phosphorus Magnesium 1.40 L Direct Bilirubin 0.9 H AST ALT Alkaline Phosphatase Lactate Dehydrogenase Troponin T C-Reactive Protein Total Protein 4.3 L Albumin 1.3 L Prealbumin Triglycerides Cholesterol LDL Cholesterol Direct HDL Cholesterol Urine pH Urine WBC (Auto) Urine Creatinine Urine Total Protein Fluid Total Protein Vancomycin Trough Rheumatoid Factor Complement C4 Miscellaneous Test Crossmatch 09/29/16 09/29/16 09/30/16 17:52 20:12 00:07 WBC RBC Hgb Hct MCV MCH MCHC RDW Plt Count Lymph % (Auto) [place] % (Auto) Lymph # [place] # Baso # Seg Neutrophils % Seg Neuts % (Manual) Lymphocytes % (Manual) Monocytes % (Manual) Eosinophils % (Manual) Basophils % (Manual) Nucleated RBC % Seg Neutrophils # Seg Neutrophils # Man Lymphocytes # (Manual) Monocytes # (Manual) Eosinophils # (Manual) Basophils # (Manual) PT INR Fibrinogen dRVVT Confirm Interp Factor V Activity POC ABG pH POC ABG pCO2 POC ABG pO2 ABG pO2 ABG HCO3 ABG Base Excess ABG Hemoglobin Oxyhemoglobin Sodium Potassium Chloride Carbon Dioxide BUN Creatinine Glucose POC Glucose 50 L 51 L Lactic Acid Calcium Phosphorus Magnesium Direct Bilirubin AST ALT Alkaline Phosphatase Lactate Dehydrogenase Troponin T 0.204 H* C-Reactive Protein Total Protein Albumin Prealbumin Triglycerides Cholesterol 31 L LDL Cholesterol Direct 4 L HDL Cholesterol 3 L Urine pH Urine WBC (Auto) Urine Creatinine Urine Total Protein Fluid Total Protein Vancomycin Trough Rheumatoid Factor Complement C4 Miscellaneous Test Crossmatch 09/30/16 09/30/16 09/30/16 01:30 05:15 06:10 WBC RBC Hgb Hct MCV MCH MCHC RDW Plt Count Lymph % (Auto) [place] % (Auto) Lymph # [place] # Baso # Seg Neutrophils % Seg Neuts % (Manual) Lymphocytes % (Manual) Monocytes % (Manual) Eosinophils % (Manual) Basophils % (Manual) Nucleated RBC % Seg Neutrophils # Seg Neutrophils # Man Lymphocytes # (Manual) Monocytes # (Manual) Eosinophils # (Manual) Basophils # (Manual) PT INR Fibrinogen dRVVT Confirm Interp Factor V Activity POC ABG pH POC ABG pCO2 POC ABG pO2 ABG pO2 ABG HCO3 ABG Base Excess ABG Hemoglobin Oxyhemoglobin Sodium 133 L Potassium 3.2 L Chloride 93.2 L Carbon Dioxide 19 L BUN 36 H Creatinine 3.2 H Glucose 104 H POC Glucose 167 H 146 H Lactic Acid Calcium 6.4 L Phosphorus Magnesium 1.60 L Direct Bilirubin AST ALT Alkaline Phosphatase Lactate Dehydrogenase Troponin T C-Reactive Protein Total Protein Albumin Prealbumin Triglycerides Cholesterol LDL Cholesterol Direct HDL Cholesterol Urine pH Urine WBC (Auto) Urine Creatinine Urine Total Protein Fluid Total Protein Vancomycin Trough Rheumatoid Factor Complement C4 Miscellaneous Test Crossmatch 09/30/16 09/30/16 09/30/16 11:26 13:39 18:38 WBC RBC Hgb Hct MCV MCH MCHC RDW Plt Count Lymph % (Auto) [place] % (Auto) Lymph # [place] # Baso # Seg Neutrophils % Seg Neuts % (Manual) Lymphocytes % (Manual) Monocytes % (Manual) Eosinophils % (Manual) Basophils % (Manual) Nucleated RBC % Seg Neutrophils # Seg Neutrophils # Man Lymphocytes # (Manual) Monocytes # (Manual) Eosinophils # (Manual) Basophils # (Manual) PT INR Fibrinogen dRVVT Confirm Interp Factor V Activity POC ABG pH 7.479 H POC ABG pCO2 29.8 L POC ABG pO2 117 H ABG pO2 ABG HCO3 ABG Base Excess ABG Hemoglobin Oxyhemoglobin Sodium Potassium Chloride Carbon Dioxide BUN Creatinine Glucose POC Glucose 140 H 122 H Lactic Acid Calcium Phosphorus Magnesium Direct Bilirubin AST ALT Alkaline Phosphatase Lactate Dehydrogenase Troponin T C-Reactive Protein Total Protein Albumin Prealbumin Triglycerides Cholesterol LDL Cholesterol Direct HDL Cholesterol Urine pH Urine WBC (Auto) Urine Creatinine Urine Total Protein Fluid Total Protein Vancomycin Trough Rheumatoid Factor Complement C4 Miscellaneous Test Crossmatch 10/01/16 10/01/16 10/01/16 06:00 06:00 12:37 WBC 12.6 H RBC 2.75 L Hgb 7.3 L Hct 23.3 L MCV MCH 27 L MCHC RDW 20.6 H Plt Count 72 L Lymph % (Auto) [place] % (Auto) Lymph # [place] # Baso # Seg Neutrophils % Seg Neuts % (Manual) 31.0 L Lymphocytes % (Manual) 8.0 L Monocytes % (Manual) Eosinophils % (Manual) Basophils % (Manual) Nucleated RBC % 3.0 H Seg Neutrophils # Seg Neutrophils # Man Lymphocytes # (Manual) 1.0 L Monocytes # (Manual) Eosinophils # (Manual) Basophils # (Manual) PT INR Fibrinogen dRVVT Confirm Interp Factor V Activity POC ABG pH POC ABG pCO2 POC ABG pO2 ABG pO2 ABG HCO3 ABG Base Excess ABG Hemoglobin Oxyhemoglobin Sodium 127 L Potassium Chloride 86.8 L Carbon Dioxide 20 L BUN 42 H Creatinine 3.5 H Glucose POC Glucose 65 L Lactic Acid Calcium 7.0 L Phosphorus Magnesium Direct Bilirubin AST ALT Alkaline Phosphatase Lactate Dehydrogenase Troponin T C-Reactive Protein Total Protein Albumin Prealbumin Triglycerides Cholesterol LDL Cholesterol Direct HDL Cholesterol Urine pH Urine WBC (Auto) Urine Creatinine Urine Total Protein Fluid Total Protein Vancomycin Trough Rheumatoid Factor Complement C4 Miscellaneous Test Crossmatch 10/01/16 10/01/16 10/02/16 17:39 23:32 00:59 WBC RBC Hgb Hct MCV MCH MCHC RDW Plt Count Lymph % (Auto) [place] % (Auto) Lymph # [place] # Baso # Seg Neutrophils % Seg Neuts % (Manual) Lymphocytes % (Manual) Monocytes % (Manual) Eosinophils % (Manual) Basophils % (Manual) Nucleated RBC % Seg Neutrophils # Seg Neutrophils # Man Lymphocytes # (Manual) Monocytes # (Manual) Eosinophils # (Manual) Basophils # (Manual) PT INR Fibrinogen dRVVT Confirm Interp Factor V Activity POC ABG pH POC ABG pCO2 POC ABG pO2 ABG pO2 ABG HCO3 ABG Base Excess ABG Hemoglobin Oxyhemoglobin Sodium Potassium Chloride Carbon Dioxide BUN Creatinine Glucose POC Glucose 107 H 52 L 145 H Lactic Acid Calcium Phosphorus Magnesium Direct Bilirubin AST ALT Alkaline Phosphatase Lactate Dehydrogenase Troponin T C-Reactive Protein Total Protein Albumin Prealbumin Triglycerides Cholesterol LDL Cholesterol Direct HDL Cholesterol Urine pH Urine WBC (Auto) Urine Creatinine Urine Total Protein Fluid Total Protein Vancomycin Trough Rheumatoid Factor Complement C4 Miscellaneous Test Crossmatch 10/02/16 10/02/16 10/02/16 10:30 10:50 10:50 WBC 14.7 H RBC 2.76 L Hgb 7.4 L Hct 23.6 L MCV MCH 27 L MCHC RDW 20.2 H Plt Count 79 L Lymph % (Auto) [place] % (Auto) Lymph # [place] # Baso # Seg Neutrophils % Seg Neuts % (Manual) 86.0 H Lymphocytes % (Manual) 6.0 L Monocytes % (Manual) Eosinophils % (Manual) Basophils % (Manual) Nucleated RBC % Seg Neutrophils # Seg Neutrophils # Man 12.6 H Lymphocytes # (Manual) 0.9 L Monocytes # (Manual) Eosinophils # (Manual) Basophils # (Manual) PT INR Fibrinogen dRVVT Confirm Interp Factor V Activity POC ABG pH 7.486 H POC ABG pCO2 30.1 L POC ABG pO2 108 H ABG pO2 ABG HCO3 ABG Base Excess ABG Hemoglobin Oxyhemoglobin Sodium 131 L Potassium 3.4 L Chloride 89.9 L Carbon Dioxide BUN 26 H Creatinine 2.6 H Glucose POC Glucose Lactic Acid Calcium 7.0 L Phosphorus Magnesium Direct Bilirubin AST ALT Alkaline Phosphatase Lactate Dehydrogenase Troponin T C-Reactive Protein Total Protein Albumin Prealbumin Triglycerides Cholesterol LDL Cholesterol Direct HDL Cholesterol Urine pH Urine WBC (Auto) Urine Creatinine Urine Total Protein Fluid Total Protein Vancomycin Trough Rheumatoid Factor Complement C4 Miscellaneous Test Crossmatch 10/02/16 10/03/16 10/03/16 23:45 00:45 05:10 WBC 12.9 H RBC 2.77 L Hgb 7.6 L Hct 23.7 L MCV MCH 27 L MCHC RDW 19.7 H Plt Count 89 L Lymph % (Auto) [place] % (Auto) Lymph # [place] # Baso # Seg Neutrophils % Seg Neuts % (Manual) Lymphocytes % (Manual) 8.0 L Monocytes % (Manual) Eosinophils % (Manual) Basophils % (Manual) Nucleated RBC % Seg Neutrophils # 11.9 H Seg Neutrophils # Man Lymphocytes # (Manual) 1.0 L Monocytes # (Manual) Eosinophils # (Manual) Basophils # (Manual) PT INR Fibrinogen dRVVT Confirm Interp Factor V Activity POC ABG pH POC ABG pCO2 POC ABG pO2 ABG pO2 ABG HCO3 ABG Base Excess ABG Hemoglobin Oxyhemoglobin Sodium Potassium Chloride Carbon Dioxide BUN Creatinine Glucose POC Glucose 55 L 199 H Lactic Acid Calcium Phosphorus Magnesium Direct Bilirubin AST ALT Alkaline Phosphatase Lactate Dehydrogenase Troponin T C-Reactive Protein Total Protein Albumin Prealbumin Triglycerides Cholesterol LDL Cholesterol Direct HDL Cholesterol Urine pH Urine WBC (Auto) Urine Creatinine Urine Total Protein Fluid Total Protein Vancomycin Trough Rheumatoid Factor Complement C4 Miscellaneous Test Crossmatch 10/03/16 10/03/16 10/03/16 05:10 12:14 13:18 WBC RBC Hgb Hct MCV MCH MCHC RDW Plt Count Lymph % (Auto) [place] % (Auto) Lymph # [place] # Baso # Seg Neutrophils % Seg Neuts % (Manual) Lymphocytes % (Manual) Monocytes % (Manual) Eosinophils % (Manual) Basophils % (Manual) Nucleated RBC % Seg Neutrophils # Seg Neutrophils # Man Lymphocytes # (Manual) Monocytes # (Manual) Eosinophils # (Manual) Basophils # (Manual) PT INR Fibrinogen dRVVT Confirm Interp Factor V Activity POC ABG pH POC ABG pCO2 POC ABG pO2 ABG pO2 ABG HCO3 ABG Base Excess ABG Hemoglobin Oxyhemoglobin Sodium 129 L Potassium 3.3 L Chloride 88.8 L Carbon Dioxide 20 L BUN 29 H Creatinine 2.8 H Glucose POC Glucose 68 L 127 H Lactic Acid Calcium 7.2 L Phosphorus Magnesium Direct Bilirubin AST ALT Alkaline Phosphatase Lactate Dehydrogenase Troponin T C-Reactive Protein Total Protein Albumin Prealbumin Triglycerides Cholesterol LDL Cholesterol Direct HDL Cholesterol Urine pH Urine WBC (Auto) Urine Creatinine Urine Total Protein Fluid Total Protein Vancomycin Trough Rheumatoid Factor Complement C4 Miscellaneous Test Crossmatch 10/03/16 10/03/16 10/03/16 14:42 18:21 19:09 WBC RBC Hgb Hct MCV MCH MCHC RDW Plt Count Lymph % (Auto) [place] % (Auto) Lymph # [place] # Baso # Seg Neutrophils % Seg Neuts % (Manual) Lymphocytes % (Manual) Monocytes % (Manual) Eosinophils % (Manual) Basophils % (Manual) Nucleated RBC % Seg Neutrophils # Seg Neutrophils # Man Lymphocytes # (Manual) Monocytes # (Manual) Eosinophils # (Manual) Basophils # (Manual) PT INR Fibrinogen dRVVT Confirm Interp Factor V Activity POC ABG pH 7.499 H POC ABG pCO2 28.4 L POC ABG pO2 44 L ABG pO2 ABG HCO3 ABG Base Excess ABG Hemoglobin Oxyhemoglobin Sodium Potassium Chloride Carbon Dioxide BUN Creatinine Glucose POC Glucose 64 L 205 H Lactic Acid Calcium Phosphorus Magnesium Direct Bilirubin AST ALT Alkaline Phosphatase Lactate Dehydrogenase Troponin T C-Reactive Protein Total Protein Albumin Prealbumin Triglycerides Cholesterol LDL Cholesterol Direct HDL Cholesterol Urine pH Urine WBC (Auto) Urine Creatinine Urine Total Protein Fluid Total Protein Vancomycin Trough Rheumatoid Factor Complement C4 Miscellaneous Test Crossmatch 08/10/04/16 10/04/16 23:33 04:18 06:30 WBC RBC 2.54 L Hgb 7.1 L Hct 21.7 L MCV MCH MCHC RDW 19.5 H Plt Count 76 L Lymph % (Auto) [place] % (Auto) Lymph # [place] # Baso # Seg Neutrophils % Seg Neuts % (Manual) 88.0 H Lymphocytes % (Manual) 6.0 L Monocytes % (Manual) Eosinophils % (Manual) Basophils % (Manual) Nucleated RBC % Seg Neutrophils # Seg Neutrophils # Man 8.8 H Lymphocytes # (Manual) 0.6 L Monocytes # (Manual) Eosinophils # (Manual) Basophils # (Manual) PT INR Fibrinogen dRVVT Confirm Interp Factor V Activity POC ABG pH 7.461 H POC ABG pCO2 33.6 L POC ABG pO2 211 H ABG pO2 ABG HCO3 ABG Base Excess ABG Hemoglobin Oxyhemoglobin Sodium Potassium Chloride Carbon Dioxide BUN Creatinine Glucose POC Glucose 136 H Lactic Acid Calcium Phosphorus Magnesium Direct Bilirubin AST ALT Alkaline Phosphatase Lactate Dehydrogenase Troponin T C-Reactive Protein Total Protein Albumin Prealbumin Triglycerides Cholesterol LDL Cholesterol Direct HDL Cholesterol Urine pH Urine WBC (Auto) Urine Creatinine Urine Total Protein Fluid Total Protein Vancomycin Trough Rheumatoid Factor Complement C4 Miscellaneous Test Crossmatch 10/04/16 10/04/16 10/04/16 06:30 11:45 17:54 WBC RBC Hgb Hct MCV MCH MCHC RDW Plt Count Lymph % (Auto) [place] % (Auto) Lymph # [place] # Baso # Seg Neutrophils % Seg Neuts % (Manual) Lymphocytes % (Manual) Monocytes % (Manual) Eosinophils % (Manual) Basophils % (Manual) Nucleated RBC % Seg Neutrophils # Seg Neutrophils # Man Lymphocytes # (Manual) Monocytes # (Manual) Eosinophils # (Manual) Basophils # (Manual) PT INR Fibrinogen dRVVT Confirm Interp Factor V Activity POC ABG pH POC ABG pCO2 POC ABG pO2 ABG pO2 ABG HCO3 ABG Base Excess ABG Hemoglobin Oxyhemoglobin Sodium 128 L Potassium Chloride 87.4 L Carbon Dioxide 20 L BUN 34 H Creatinine 2.9 H Glucose 127 H POC Glucose 158 H 160 H Lactic Acid Calcium 7.4 L Phosphorus Magnesium Direct Bilirubin AST ALT Alkaline Phosphatase Lactate Dehydrogenase Troponin T C-Reactive Protein Total Protein Albumin Prealbumin Triglycerides Cholesterol LDL Cholesterol Direct HDL Cholesterol Urine pH Urine WBC (Auto) Urine Creatinine Urine Total Protein Fluid Total Protein Vancomycin Trough Rheumatoid Factor Complement C4 Miscellaneous Test Crossmatch 10/04/16 10/05/16 10/05/16 23:25 04:30 05:00 WBC RBC 2.64 L Hgb 7.5 L Hct 22.6 L MCV MCH MCHC RDW 19.3 H Plt Count 80 L Lymph % (Auto) [place] % (Auto) Lymph # [place] # Baso # Seg Neutrophils % Seg Neuts % (Manual) Lymphocytes % (Manual) 12.0 L Monocytes % (Manual) Eosinophils % (Manual) Basophils % (Manual) Nucleated RBC % Seg Neutrophils # Seg Neutrophils # Man Lymphocytes # (Manual) Monocytes # (Manual) Eosinophils # (Manual) Basophils # (Manual) PT INR Fibrinogen dRVVT Confirm Interp Factor V Activity POC ABG pH 7.475 H POC ABG pCO2 33.3 L POC ABG pO2 140 H ABG pO2 ABG HCO3 ABG Base Excess ABG Hemoglobin Oxyhemoglobin Sodium Potassium Chloride Carbon Dioxide BUN Creatinine Glucose POC Glucose 141 H Lactic Acid Calcium Phosphorus Magnesium Direct Bilirubin AST ALT Alkaline Phosphatase Lactate Dehydrogenase Troponin T C-Reactive Protein Total Protein Albumin Prealbumin Triglycerides Cholesterol LDL Cholesterol Direct HDL Cholesterol Urine pH Urine WBC (Auto) Urine Creatinine Urine Total Protein Fluid Total Protein Vancomycin Trough Rheumatoid Factor Complement C4 Miscellaneous Test Crossmatch 10/05/16 10/05/16 10/05/16 05:00 05:09 12:58 WBC RBC Hgb Hct MCV MCH MCHC RDW Plt Count Lymph % (Auto) [place] % (Auto) Lymph # [place] # Baso # Seg Neutrophils % Seg Neuts % (Manual) Lymphocytes % (Manual) Monocytes % (Manual) Eosinophils % (Manual) Basophils % (Manual) Nucleated RBC % Seg Neutrophils # Seg Neutrophils # Man Lymphocytes # (Manual) Monocytes # (Manual) Eosinophils # (Manual) Basophils # (Manual) PT INR Fibrinogen dRVVT Confirm Interp Factor V Activity POC ABG pH POC ABG pCO2 POC ABG pO2 ABG pO2 ABG HCO3 ABG Base Excess ABG Hemoglobin Oxyhemoglobin Sodium 131 L Potassium Chloride 94.0 L Carbon Dioxide 20 L BUN 22 H Creatinine 2.0 H Glucose 123 H POC Glucose 166 H 179 H Lactic Acid Calcium 7.7 L Phosphorus 2.20 L D Magnesium Direct Bilirubin AST ALT Alkaline Phosphatase Lactate Dehydrogenase Troponin T C-Reactive Protein Total Protein Albumin Prealbumin Triglycerides Cholesterol LDL Cholesterol Direct HDL Cholesterol Urine pH Urine WBC (Auto) Urine Creatinine Urine Total Protein Fluid Total Protein Vancomycin Trough Rheumatoid Factor Complement C4 Miscellaneous Test Crossmatch 10/05/16 10/05/16 10/05/16 15:50 18:53 23:12 WBC RBC Hgb Hct MCV MCH MCHC RDW Plt Count Lymph % (Auto) [place] % (Auto) Lymph # [place] # Baso # Seg Neutrophils % Seg Neuts % (Manual) Lymphocytes % (Manual) Monocytes % (Manual) Eosinophils % (Manual) Basophils % (Manual) Nucleated RBC % Seg Neutrophils # Seg Neutrophils # Man Lymphocytes # (Manual) Monocytes # (Manual) Eosinophils # (Manual) Basophils # (Manual) PT INR Fibrinogen dRVVT Confirm Interp Factor V Activity POC ABG pH POC ABG pCO2 POC ABG pO2 ABG pO2 ABG HCO3 ABG Base Excess ABG Hemoglobin Oxyhemoglobin Sodium Potassium Chloride Carbon Dioxide BUN Creatinine Glucose POC Glucose 150 H 164 H Lactic Acid Calcium Phosphorus Magnesium Direct Bilirubin AST ALT Alkaline Phosphatase Lactate Dehydrogenase Troponin T C-Reactive Protein Total Protein Albumin Prealbumin Triglycerides Cholesterol LDL Cholesterol Direct HDL Cholesterol Urine pH Urine WBC (Auto) Urine Creatinine Urine Total Protein Fluid Total Protein Vancomycin Trough Rheumatoid Factor Complement C4 Miscellaneous Test Crossmatch See Detail 10/06/16 10/06/16 10/06/16 03:50 03:50 04:53 WBC RBC 3.00 L Hgb 8.6 L Hct 25.8 L MCV MCH MCHC RDW 17.9 H Plt Count 65 L Lymph % (Auto) [place] % (Auto) Lymph # [place] # Baso # Seg Neutrophils % Seg Neuts % (Manual) 30.0 L Lymphocytes % (Manual) 5.0 L Monocytes % (Manual) Eosinophils % (Manual) Basophils % (Manual) Nucleated RBC % Seg Neutrophils # Seg Neutrophils # Man Lymphocytes # (Manual) 0.4 L Monocytes # (Manual) Eosinophils # (Manual) Basophils # (Manual) PT INR Fibrinogen dRVVT Confirm Interp Factor V Activity POC ABG pH 7.310 L POC ABG pCO2 49.0 H POC ABG pO2 ABG pO2 ABG HCO3 ABG Base Excess ABG Hemoglobin Oxyhemoglobin Sodium 133 L Potassium Chloride 95.9 L Carbon Dioxide BUN 26 H Creatinine 2.0 H Glucose 116 H POC Glucose Lactic Acid Calcium 7.8 L Phosphorus Magnesium Direct Bilirubin AST ALT Alkaline Phosphatase Lactate Dehydrogenase Troponin T C-Reactive Protein Total Protein Albumin Prealbumin Triglycerides Cholesterol LDL Cholesterol Direct HDL Cholesterol Urine pH Urine WBC (Auto) Urine Creatinine Urine Total Protein Fluid Total Protein Vancomycin Trough Rheumatoid Factor Complement C4 Miscellaneous Test Crossmatch 10/06/16 10/06/16 10/06/16 05:23 11:52 18:34 WBC RBC Hgb Hct MCV MCH MCHC RDW Plt Count Lymph % (Auto) [place] % (Auto) Lymph # [place] # Baso # Seg Neutrophils % Seg Neuts % (Manual) Lymphocytes % (Manual) Monocytes % (Manual) Eosinophils % (Manual) Basophils % (Manual) Nucleated RBC % Seg Neutrophils # Seg Neutrophils # Man Lymphocytes # (Manual) Monocytes # (Manual) Eosinophils # (Manual) Basophils # (Manual) PT INR Fibrinogen dRVVT Confirm Interp Factor V Activity POC ABG pH POC ABG pCO2 POC ABG pO2 ABG pO2 ABG HCO3 ABG Base Excess ABG Hemoglobin Oxyhemoglobin Sodium Potassium Chloride Carbon Dioxide BUN Creatinine Glucose POC Glucose 126 H 116 H 129 H Lactic Acid Calcium Phosphorus Magnesium Direct Bilirubin AST ALT Alkaline Phosphatase Lactate Dehydrogenase Troponin T C-Reactive Protein Total Protein Albumin Prealbumin Triglycerides Cholesterol LDL Cholesterol Direct HDL Cholesterol Urine pH Urine WBC (Auto) Urine Creatinine Urine Total Protein Fluid Total Protein Vancomycin Trough Rheumatoid Factor Complement C4 Miscellaneous Test Crossmatch 10/07/16 10/07/16 10/07/16 03:45 05:00 10:00 WBC 17.0 H RBC 2.68 L Hgb 7.3 L Hct 25.3 L MCV MCH 27 L MCHC 29 L RDW 19.6 H Plt Count 74 L Lymph % (Auto) [place] % (Auto) Lymph # [place] # Baso # Seg Neutrophils % Seg Neuts % (Manual) Lymphocytes % (Manual) 12.0 L Monocytes % (Manual) Eosinophils % (Manual) Basophils % (Manual) Nucleated RBC % 4.0 H Seg Neutrophils # Seg Neutrophils # Man 10.7 H Lymphocytes # (Manual) Monocytes # (Manual) Eosinophils # (Manual) Basophils # (Manual) PT INR Fibrinogen dRVVT Confirm Interp Factor V Activity POC ABG pH POC ABG pCO2 POC ABG pO2 ABG pO2 ABG HCO3 ABG Base Excess ABG Hemoglobin Oxyhemoglobin Sodium 130 L Potassium 3.2 L Chloride 93.9 L Carbon Dioxide 20 L BUN 44 H Creatinine 2.7 H Glucose 129 H POC Glucose Lactic Acid Calcium 7.4 L Phosphorus Magnesium Direct Bilirubin AST ALT 6 L Alkaline Phosphatase 195 H Lactate Dehydrogenase Troponin T C-Reactive Protein Total Protein 4.9 L Albumin 1.0 L Prealbumin Triglycerides Cholesterol LDL Cholesterol Direct HDL Cholesterol Urine pH Urine WBC (Auto) Urine Creatinine Urine Total Protein Fluid Total Protein Vancomycin Trough Rheumatoid Factor Complement C4 Miscellaneous Test Flexitest 1 H Crossmatch 10/07/16 10/07/16 10/07/16 10:00 11:24 18:10 WBC RBC Hgb Hct MCV MCH MCHC RDW Plt Count Lymph % (Auto) [place] % (Auto) Lymph # [place] # Baso # Seg Neutrophils % Seg Neuts % (Manual) Lymphocytes % (Manual) Monocytes % (Manual) Eosinophils % (Manual) Basophils % (Manual) Nucleated RBC % Seg Neutrophils # Seg Neutrophils # Man Lymphocytes # (Manual) Monocytes # (Manual) Eosinophils # (Manual) Basophils # (Manual) PT INR Fibrinogen dRVVT Confirm Interp Factor V Activity POC ABG pH POC ABG pCO2 POC ABG pO2 ABG pO2 ABG HCO3 ABG Base Excess ABG Hemoglobin Oxyhemoglobin Sodium Potassium Chloride Carbon Dioxide BUN Creatinine Glucose POC Glucose 116 H 130 H Lactic Acid Calcium Phosphorus Magnesium Direct Bilirubin AST ALT Alkaline Phosphatase Lactate Dehydrogenase Troponin T C-Reactive Protein 19.40 H Total Protein Albumin Prealbumin Triglycerides Cholesterol LDL Cholesterol Direct HDL Cholesterol Urine pH Urine WBC (Auto) Urine Creatinine Urine Total Protein Fluid Total Protein Vancomycin Trough Rheumatoid Factor Complement C4 Miscellaneous Test Crossmatch 10/07/16 10/08/16 10/08/16 18:30 00:00 04:00 WBC RBC Hgb Hct MCV MCH MCHC RDW Plt Count Lymph % (Auto) [place] % (Auto) Lymph # [place] # Baso # Seg Neutrophils % Seg Neuts % (Manual) Lymphocytes % (Manual) Monocytes % (Manual) Eosinophils % (Manual) Basophils % (Manual) Nucleated RBC % Seg Neutrophils # Seg Neutrophils # Man Lymphocytes # (Manual) Monocytes # (Manual) Eosinophils # (Manual) Basophils # (Manual) PT INR Fibrinogen dRVVT Confirm Interp Factor V Activity POC ABG pH POC ABG pCO2 POC ABG pO2 ABG pO2 ABG HCO3 ABG Base Excess ABG Hemoglobin Oxyhemoglobin Sodium 132 L Potassium 3.3 L Chloride 93.6 L Carbon Dioxide 17 L BUN 59 H Creatinine 2.7 H Glucose 121 H POC Glucose 122 H Lactic Acid Calcium 7.6 L Phosphorus Magnesium Direct Bilirubin AST ALT Alkaline Phosphatase Lactate Dehydrogenase Troponin T C-Reactive Protein Total Protein Albumin Prealbumin Triglycerides Cholesterol LDL Cholesterol Direct HDL Cholesterol Urine pH Urine WBC (Auto) > 182.0 H Urine Creatinine Urine Total Protein Fluid Total Protein Vancomycin Trough Rheumatoid Factor Complement C4 Miscellaneous Test Crossmatch 10/08/16 10/08/16 10/08/16 04:30 05:30 11:51 WBC RBC 5.15 H Hgb 14.4 H D Hct 44.5 H D MCV MCH MCHC RDW 19.5 H Plt Count 56 L Lymph % (Auto) [place] % (Auto) Lymph # [place] # Baso # Seg Neutrophils % Seg Neuts % (Manual) 24.0 L Lymphocytes % (Manual) 8.0 L Monocytes % (Manual) Eosinophils % (Manual) Basophils % (Manual) Nucleated RBC % 9.0 H Seg Neutrophils # Seg Neutrophils # Man Lymphocytes # (Manual) 0.7 L Monocytes # (Manual) Eosinophils # (Manual) Basophils # (Manual) PT INR Fibrinogen dRVVT Confirm Interp Factor V Activity POC ABG pH POC ABG pCO2 POC ABG pO2 ABG pO2 ABG HCO3 ABG Base Excess ABG Hemoglobin Oxyhemoglobin Sodium Potassium Chloride Carbon Dioxide BUN Creatinine Glucose POC Glucose 125 H 150 H Lactic Acid Calcium Phosphorus Magnesium Direct Bilirubin AST ALT Alkaline Phosphatase Lactate Dehydrogenase Troponin T C-Reactive Protein Total Protein Albumin Prealbumin Triglycerides Cholesterol LDL Cholesterol Direct HDL Cholesterol Urine pH Urine WBC (Auto) Urine Creatinine Urine Total Protein Fluid Total Protein Vancomycin Trough Rheumatoid Factor Complement C4 Miscellaneous Test Crossmatch 10/08/16 10/08/16 10/08/16 12:49 17:07 19:30 WBC RBC Hgb 7.1 L D Hct 22.4 L D MCV MCH MCHC RDW Plt Count Lymph % (Auto) [place] % (Auto) Lymph # [place] # Baso # Seg Neutrophils % Seg Neuts % (Manual) Lymphocytes % (Manual) Monocytes % (Manual) Eosinophils % (Manual) Basophils % (Manual) Nucleated RBC % Seg Neutrophils # Seg Neutrophils # Man Lymphocytes # (Manual) Monocytes # (Manual) Eosinophils # (Manual) Basophils # (Manual) PT INR Fibrinogen dRVVT Confirm Interp Factor V Activity POC ABG pH POC ABG pCO2 28.2 L POC ABG pO2 111 H ABG pO2 ABG HCO3 ABG Base Excess ABG Hemoglobin Oxyhemoglobin Sodium Potassium Chloride Carbon Dioxide BUN Creatinine Glucose POC Glucose 145 H Lactic Acid Calcium Phosphorus Magnesium Direct Bilirubin AST ALT Alkaline Phosphatase Lactate Dehydrogenase Troponin T C-Reactive Protein Total Protein Albumin Prealbumin Triglycerides Cholesterol LDL Cholesterol Direct HDL Cholesterol Urine pH Urine WBC (Auto) Urine Creatinine Urine Total Protein Fluid Total Protein Vancomycin Trough Rheumatoid Factor Complement C4 Miscellaneous Test Crossmatch 10/08/16 10/09/16 10/09/16 19:30 03:45 03:45 WBC 12.6 H RBC 2.36 L Hgb 6.7 L Hct 21.1 L MCV MCH MCHC RDW 19.5 H Plt Count 75 L Lymph % (Auto) [place] % (Auto) Lymph # [place] # Baso # Seg Neutrophils % Seg Neuts % (Manual) Lymphocytes % (Manual) Monocytes % (Manual) 10.0 H Eosinophils % (Manual) Basophils % (Manual) Nucleated RBC % 3.0 H Seg Neutrophils # Seg Neutrophils # Man Lymphocytes # (Manual) Monocytes # (Manual) 1.3 H Eosinophils # (Manual) Basophils # (Manual) PT 18.0 H INR 1.41 H Fibrinogen dRVVT Confirm Interp Factor V Activity POC ABG pH POC ABG pCO2 POC ABG pO2 ABG pO2 ABG HCO3 ABG Base Excess ABG Hemoglobin Oxyhemoglobin Sodium 135 L Potassium Chloride Carbon Dioxide 17 L BUN 81 H Creatinine 3.2 H Glucose 109 H POC Glucose Lactic Acid Calcium 7.4 L Phosphorus 4.60 H D Magnesium Direct Bilirubin AST ALT Alkaline Phosphatase Lactate Dehydrogenase Troponin T C-Reactive Protein Total Protein Albumin Prealbumin Triglycerides Cholesterol LDL Cholesterol Direct HDL Cholesterol Urine pH Urine WBC (Auto) Urine Creatinine Urine Total Protein Fluid Total Protein Vancomycin Trough Rheumatoid Factor Complement C4 Miscellaneous Test Crossmatch 10/09/16 10/09/16 10/09/16 03:45 05:14 07:20 WBC RBC Hgb Hct MCV MCH MCHC RDW Plt Count Lymph % (Auto) [place] % (Auto) Lymph # [place] # Baso # Seg Neutrophils % Seg Neuts % (Manual) Lymphocytes % (Manual) Monocytes % (Manual) Eosinophils % (Manual) Basophils % (Manual) Nucleated RBC % Seg Neutrophils # Seg Neutrophils # Man Lymphocytes # (Manual) Monocytes # (Manual) Eosinophils # (Manual) Basophils # (Manual) PT 19.0 H INR 1.51 H Fibrinogen dRVVT Confirm Interp Factor V Activity POC ABG pH POC ABG pCO2 POC ABG pO2 ABG pO2 ABG HCO3 ABG Base Excess ABG Hemoglobin Oxyhemoglobin Sodium Potassium Chloride Carbon Dioxide BUN Creatinine Glucose POC Glucose 151 H Lactic Acid Calcium Phosphorus Magnesium Direct Bilirubin AST ALT Alkaline Phosphatase Lactate Dehydrogenase Troponin T C-Reactive Protein Total Protein Albumin Prealbumin Triglycerides Cholesterol LDL Cholesterol Direct HDL Cholesterol Urine pH Urine WBC (Auto) Urine Creatinine Urine Total Protein Fluid Total Protein Vancomycin Trough Rheumatoid Factor Complement C4 Miscellaneous Test Crossmatch See Detail 10/09/16 10/09/16 10/09/16 11:46 16:20 16:43 WBC RBC Hgb 7.2 L Hct 22.2 L MCV MCH MCHC RDW Plt Count Lymph % (Auto) [place] % (Auto) Lymph # [place] # Baso # Seg Neutrophils % Seg Neuts % (Manual) Lymphocytes % (Manual) Monocytes % (Manual) Eosinophils % (Manual) Basophils % (Manual) Nucleated RBC % Seg Neutrophils # Seg Neutrophils # Man Lymphocytes # (Manual) Monocytes # (Manual) Eosinophils # (Manual) Basophils # (Manual) PT INR Fibrinogen dRVVT Confirm Interp Factor V Activity POC ABG pH POC ABG pCO2 POC ABG pO2 ABG pO2 ABG HCO3 ABG Base Excess ABG Hemoglobin Oxyhemoglobin Sodium Potassium Chloride Carbon Dioxide BUN Creatinine Glucose POC Glucose 133 H 141 H Lactic Acid Calcium Phosphorus Magnesium Direct Bilirubin AST ALT Alkaline Phosphatase Lactate Dehydrogenase Troponin T C-Reactive Protein Total Protein Albumin Prealbumin Triglycerides Cholesterol LDL Cholesterol Direct HDL Cholesterol Urine pH Urine WBC (Auto) Urine Creatinine Urine Total Protein Fluid Total Protein Vancomycin Trough Rheumatoid Factor Complement C4 Miscellaneous Test Crossmatch 10/10/16 10/10/16 10/10/16 05:00 05:00 11:19 WBC 18.5 H RBC 2.19 L Hgb 6.4 L Hct 19.6 L* MCV MCH MCHC RDW 19.3 H Plt Count 93 L Lymph % (Auto) [place] % (Auto) Lymph # [place] # Baso # Seg Neutrophils % Seg Neuts % (Manual) Lymphocytes % (Manual) 10.0 L Monocytes % (Manual) Eosinophils % (Manual) Basophils % (Manual) Nucleated RBC % 4.0 H Seg Neutrophils # Seg Neutrophils # Man 11.3 H Lymphocytes # (Manual) Monocytes # (Manual) Eosinophils # (Manual) Basophils # (Manual) PT INR Fibrinogen dRVVT Confirm Interp Factor V Activity POC ABG pH POC ABG pCO2 POC ABG pO2 ABG pO2 ABG HCO3 ABG Base Excess ABG Hemoglobin Oxyhemoglobin Sodium Potassium 5.7 H D Chloride Carbon Dioxide 16 L BUN 94 H Creatinine 3.1 H Glucose 131 H POC Glucose 153 H Lactic Acid Calcium 8.2 L Phosphorus 5.10 H Magnesium 2.40 H Direct Bilirubin 0.3 H AST ALT < 5 L Alkaline Phosphatase 319 H Lactate Dehydrogenase Troponin T C-Reactive Protein Total Protein 5.1 L Albumin 1.0 L Prealbumin Triglycerides Cholesterol LDL Cholesterol Direct HDL Cholesterol Urine pH Urine WBC (Auto) Urine Creatinine Urine Total Protein Fluid Total Protein Vancomycin Trough Rheumatoid Factor Complement C4 Miscellaneous Test Crossmatch 10/10/16 10/10/16 10/11/16 17:50 23:30 04:15 WBC RBC Hgb Hct MCV MCH MCHC RDW Plt Count Lymph % (Auto) [place] % (Auto) Lymph # [place] # Baso # Seg Neutrophils % Seg Neuts % (Manual) Lymphocytes % (Manual) Monocytes % (Manual) Eosinophils % (Manual) Basophils % (Manual) Nucleated RBC % Seg Neutrophils # Seg Neutrophils # Man Lymphocytes # (Manual) Monocytes # (Manual) Eosinophils # (Manual) Basophils # (Manual) PT INR Fibrinogen dRVVT Confirm Interp Factor V Activity POC ABG pH POC ABG pCO2 POC ABG pO2 ABG pO2 ABG HCO3 ABG Base Excess ABG Hemoglobin Oxyhemoglobin Sodium Potassium Chloride 96.4 L Carbon Dioxide 21 L BUN 57 H Creatinine 2.1 H Glucose 151 H POC Glucose 146 H 141 H Lactic Acid Calcium 8.3 L Phosphorus Magnesium Direct Bilirubin AST ALT Alkaline Phosphatase Lactate Dehydrogenase Troponin T C-Reactive Protein Total Protein Albumin Prealbumin Triglycerides Cholesterol LDL Cholesterol Direct HDL Cholesterol Urine pH Urine WBC (Auto) Urine Creatinine Urine Total Protein Fluid Total Protein Vancomycin Trough Rheumatoid Factor Complement C4 Miscellaneous Test Crossmatch 10/11/16 10/11/16 10/11/16 04:15 04:15 05:30 WBC 28.3 H RBC 3.12 L Hgb 9.3 L Hct 28.7 L D MCV MCH MCHC RDW 17.7 H Plt Count 128 L Lymph % (Auto) [place] % (Auto) Lymph # [place] # Baso # Seg Neutrophils % Seg Neuts % (Manual) Lymphocytes % (Manual) Monocytes % (Manual) Eosinophils % (Manual) Basophils % (Manual) Nucleated RBC % Seg Neutrophils # Seg Neutrophils # Man Lymphocytes # (Manual) Monocytes # (Manual) Eosinophils # (Manual) Basophils # (Manual) PT INR Fibrinogen dRVVT Confirm Interp Factor V Activity POC ABG pH POC ABG pCO2 POC ABG pO2 ABG pO2 ABG HCO3 ABG Base Excess ABG Hemoglobin Oxyhemoglobin Sodium Potassium Chloride Carbon Dioxide BUN Creatinine Glucose POC Glucose 167 H Lactic Acid Calcium Phosphorus Magnesium Direct Bilirubin AST ALT Alkaline Phosphatase Lactate Dehydrogenase Troponin T C-Reactive Protein 15.80 H Total Protein Albumin Prealbumin Triglycerides Cholesterol LDL Cholesterol Direct HDL Cholesterol Urine pH Urine WBC (Auto) Urine Creatinine Urine Total Protein Fluid Total Protein Vancomycin Trough Rheumatoid Factor Complement C4 Miscellaneous Test Crossmatch 10/11/16 10/11/16 10/11/16 11:40 15:49 23:57 WBC RBC Hgb Hct MCV MCH MCHC RDW Plt Count Lymph % (Auto) [place] % (Auto) Lymph # [place] # Baso # Seg Neutrophils % Seg Neuts % (Manual) Lymphocytes % (Manual) Monocytes % (Manual) Eosinophils % (Manual) Basophils % (Manual) Nucleated RBC % Seg Neutrophils # Seg Neutrophils # Man Lymphocytes # (Manual) Monocytes # (Manual) Eosinophils # (Manual) Basophils # (Manual) PT INR Fibrinogen dRVVT Confirm Interp Factor V Activity POC ABG pH POC ABG pCO2 POC ABG pO2 ABG pO2 ABG HCO3 ABG Base Excess ABG Hemoglobin Oxyhemoglobin Sodium Potassium Chloride Carbon Dioxide BUN Creatinine Glucose POC Glucose 139 H 168 H 161 H Lactic Acid Calcium Phosphorus Magnesium Direct Bilirubin AST ALT Alkaline Phosphatase Lactate Dehydrogenase Troponin T C-Reactive Protein Total Protein Albumin Prealbumin Triglycerides Cholesterol LDL Cholesterol Direct HDL Cholesterol Urine pH Urine WBC (Auto) Urine Creatinine Urine Total Protein Fluid Total Protein Vancomycin Trough Rheumatoid Factor Complement C4 Miscellaneous Test Crossmatch 10/12/16 10/12/16 10/12/16 04:40 04:40 05:44 WBC 22.5 H RBC 2.88 L Hgb 8.8 L Hct 26.8 L MCV MCH MCHC RDW 17.8 H Plt Count Lymph % (Auto) [place] % (Auto) Lymph # [place] # Baso # Seg Neutrophils % Seg Neuts % (Manual) Lymphocytes % (Manual) Monocytes % (Manual) Eosinophils % (Manual) Basophils % (Manual) Nucleated RBC % Seg Neutrophils # Seg Neutrophils # Man Lymphocytes # (Manual) Monocytes # (Manual) Eosinophils # (Manual) Basophils # (Manual) PT INR Fibrinogen dRVVT Confirm Interp Factor V Activity POC ABG pH POC ABG pCO2 POC ABG pO2 ABG pO2 ABG HCO3 ABG Base Excess ABG Hemoglobin Oxyhemoglobin Sodium 134 L Potassium Chloride 93.0 L Carbon Dioxide BUN 74 H Creatinine 2.5 H Glucose 137 H POC Glucose 158 H Lactic Acid Calcium 8.2 L Phosphorus Magnesium Direct Bilirubin AST ALT Alkaline Phosphatase Lactate Dehydrogenase Troponin T C-Reactive Protein Total Protein Albumin Prealbumin Triglycerides Cholesterol LDL Cholesterol Direct HDL Cholesterol Urine pH Urine WBC (Auto) Urine Creatinine Urine Total Protein Fluid Total Protein Vancomycin Trough Rheumatoid Factor Complement C4 Miscellaneous Test Crossmatch 10/12/16 10/12/16 10/12/16 12:27 18:18 23:46 WBC RBC Hgb Hct MCV MCH MCHC RDW Plt Count Lymph % (Auto) [place] % (Auto) Lymph # [place] # Baso # Seg Neutrophils % Seg Neuts % (Manual) Lymphocytes % (Manual) Monocytes % (Manual) Eosinophils % (Manual) Basophils % (Manual) Nucleated RBC % Seg Neutrophils # Seg Neutrophils # Man Lymphocytes # (Manual) Monocytes # (Manual) Eosinophils # (Manual) Basophils # (Manual) PT INR Fibrinogen dRVVT Confirm Interp Factor V Activity POC ABG pH POC ABG pCO2 POC ABG pO2 ABG pO2 ABG HCO3 ABG Base Excess ABG Hemoglobin Oxyhemoglobin Sodium Potassium Chloride Carbon Dioxide BUN Creatinine Glucose POC Glucose 153 H 140 H 150 H Lactic Acid Calcium Phosphorus Magnesium Direct Bilirubin AST ALT Alkaline Phosphatase Lactate Dehydrogenase Troponin T C-Reactive Protein Total Protein Albumin Prealbumin Triglycerides Cholesterol LDL Cholesterol Direct HDL Cholesterol Urine pH Urine WBC (Auto) Urine Creatinine Urine Total Protein Fluid Total Protein Vancomycin Trough Rheumatoid Factor Complement C4 Miscellaneous Test Crossmatch 10/13/16 10/13/16 10/13/16 06:22 09:20 12:29 WBC RBC Hgb Hct MCV MCH MCHC RDW Plt Count Lymph % (Auto) [place] % (Auto) Lymph # [place] # Baso # Seg Neutrophils % Seg Neuts % (Manual) Lymphocytes % (Manual) Monocytes % (Manual) Eosinophils % (Manual) Basophils % (Manual) Nucleated RBC % Seg Neutrophils # Seg Neutrophils # Man Lymphocytes # (Manual) Monocytes # (Manual) Eosinophils # (Manual) Basophils # (Manual) PT INR Fibrinogen dRVVT Confirm Interp Factor V Activity POC ABG pH POC ABG pCO2 POC ABG pO2 ABG pO2 ABG HCO3 ABG Base Excess ABG Hemoglobin Oxyhemoglobin Sodium Potassium Chloride Carbon Dioxide BUN Creatinine Glucose POC Glucose 165 H 193 H Lactic Acid Calcium Phosphorus Magnesium Direct Bilirubin AST ALT Alkaline Phosphatase Lactate Dehydrogenase Troponin T C-Reactive Protein Total Protein Albumin Prealbumin Triglycerides Cholesterol LDL Cholesterol Direct HDL Cholesterol Urine pH Urine WBC (Auto) Urine Creatinine Urine Total Protein Fluid Total Protein Vancomycin Trough Rheumatoid Factor Complement C4 Miscellaneous Test Flexitest 1 H Crossmatch 10/13/16 10/13/16 10/13/16 18:09 Unknown Unknown WBC 23.4 H RBC 2.83 L Hgb 8.7 L Hct 26.1 L MCV MCH MCHC RDW 18.1 H Plt Count Lymph % (Auto) [place] % (Auto) Lymph # [place] # Baso # Seg Neutrophils % Seg Neuts % (Manual) Lymphocytes % (Manual) Monocytes % (Manual) Eosinophils % (Manual) Basophils % (Manual) Nucleated RBC % Seg Neutrophils # Seg Neutrophils # Man Lymphocytes # (Manual) Monocytes # (Manual) Eosinophils # (Manual) Basophils # (Manual) PT INR Fibrinogen dRVVT Confirm Interp Factor V Activity POC ABG pH POC ABG pCO2 POC ABG pO2 ABG pO2 ABG HCO3 ABG Base Excess ABG Hemoglobin Oxyhemoglobin Sodium Potassium Chloride 95.8 L Carbon Dioxide BUN 82 H Creatinine 2.6 H Glucose 152 H POC Glucose 166 H Lactic Acid Calcium Phosphorus Magnesium Direct Bilirubin AST ALT Alkaline Phosphatase Lactate Dehydrogenase Troponin T C-Reactive Protein Total Protein Albumin Prealbumin Triglycerides Cholesterol LDL Cholesterol Direct HDL Cholesterol Urine pH Urine WBC (Auto) Urine Creatinine Urine Total Protein Fluid Total Protein Vancomycin Trough Rheumatoid Factor Complement C4 Miscellaneous Test Crossmatch 10/14/16 10/14/16 10/14/16 05:38 06:35 08:10 WBC 20.7 H RBC 2.81 L Hgb 8.4 L Hct 27.2 L MCV MCH MCHC RDW 19.4 H Plt Count Lymph % (Auto) [place] % (Auto) Lymph # [place] # Baso # Seg Neutrophils % Seg Neuts % (Manual) Lymphocytes % (Manual) Monocytes % (Manual) Eosinophils % (Manual) Basophils % (Manual) Nucleated RBC % Seg Neutrophils # Seg Neutrophils # Man Lymphocytes # (Manual) Monocytes # (Manual) Eosinophils # (Manual) Basophils # (Manual) PT INR Fibrinogen dRVVT Confirm Interp Factor V Activity POC ABG pH POC ABG pCO2 POC ABG pO2 ABG pO2 ABG HCO3 ABG Base Excess ABG Hemoglobin Oxyhemoglobin Sodium Potassium Chloride Carbon Dioxide BUN 58 H Creatinine 1.9 H Glucose 169 H POC Glucose 195 H Lactic Acid Calcium Phosphorus Magnesium Direct Bilirubin AST ALT Alkaline Phosphatase Lactate Dehydrogenase Troponin T C-Reactive Protein Total Protein Albumin Prealbumin Triglycerides Cholesterol LDL Cholesterol Direct HDL Cholesterol Urine pH Urine WBC (Auto) Urine Creatinine Urine Total Protein Fluid Total Protein Vancomycin Trough Rheumatoid Factor Complement C4 Miscellaneous Test Crossmatch 10/14/16 10/14/16 10/14/16 11:44 17:13 23:28 WBC RBC Hgb Hct MCV MCH MCHC RDW Plt Count Lymph % (Auto) [place] % (Auto) Lymph # [place] # Baso # Seg Neutrophils % Seg Neuts % (Manual) Lymphocytes % (Manual) Monocytes % (Manual) Eosinophils % (Manual) Basophils % (Manual) Nucleated RBC % Seg Neutrophils # Seg Neutrophils # Man Lymphocytes # (Manual) Monocytes # (Manual) Eosinophils # (Manual) Basophils # (Manual) PT INR Fibrinogen dRVVT Confirm Interp Factor V Activity POC ABG pH POC ABG pCO2 POC ABG pO2 ABG pO2 ABG HCO3 ABG Base Excess ABG Hemoglobin Oxyhemoglobin Sodium Potassium Chloride Carbon Dioxide BUN Creatinine Glucose POC Glucose 174 H 121 H 151 H Lactic Acid Calcium Phosphorus Magnesium Direct Bilirubin AST ALT Alkaline Phosphatase Lactate Dehydrogenase Troponin T C-Reactive Protein Total Protein Albumin Prealbumin Triglycerides Cholesterol LDL Cholesterol Direct HDL Cholesterol Urine pH Urine WBC (Auto) Urine Creatinine Urine Total Protein Fluid Total Protein Vancomycin Trough Rheumatoid Factor Complement C4 Miscellaneous Test Crossmatch 10/15/16 10/15/16 10/15/16 05:06 12:26 17:48 WBC RBC Hgb Hct MCV MCH MCHC RDW Plt Count Lymph % (Auto) [place] % (Auto) Lymph # [place] # Baso # Seg Neutrophils % Seg Neuts % (Manual) Lymphocytes % (Manual) Monocytes % (Manual) Eosinophils % (Manual) Basophils % (Manual) Nucleated RBC % Seg Neutrophils # Seg Neutrophils # Man Lymphocytes # (Manual) Monocytes # (Manual) Eosinophils # (Manual) Basophils # (Manual) PT INR Fibrinogen dRVVT Confirm Interp Factor V Activity POC ABG pH POC ABG pCO2 POC ABG pO2 ABG pO2 ABG HCO3 ABG Base Excess ABG Hemoglobin Oxyhemoglobin Sodium Potassium Chloride Carbon Dioxide BUN Creatinine Glucose POC Glucose 151 H 149 H 153 H Lactic Acid Calcium Phosphorus Magnesium Direct Bilirubin AST ALT Alkaline Phosphatase Lactate Dehydrogenase Troponin T C-Reactive Protein Total Protein Albumin Prealbumin Triglycerides Cholesterol LDL Cholesterol Direct HDL Cholesterol Urine pH Urine WBC (Auto) Urine Creatinine Urine Total Protein Fluid Total Protein Vancomycin Trough Rheumatoid Factor Complement C4 Miscellaneous Test Crossmatch 10/15/16 10/15/16 10/16/16 Unknown Unknown 00:02 WBC 23.4 H RBC 2.78 L Hgb 8.5 L Hct 25.7 L MCV MCH MCHC RDW 18.7 H Plt Count Lymph % (Auto) [place] % (Auto) Lymph # [place] # Baso # Seg Neutrophils % Seg Neuts % (Manual) Lymphocytes % (Manual) Monocytes % (Manual) Eosinophils % (Manual) Basophils % (Manual) Nucleated RBC % Seg Neutrophils # Seg Neutrophils # Man Lymphocytes # (Manual) Monocytes # (Manual) Eosinophils # (Manual) Basophils # (Manual) PT INR Fibrinogen dRVVT Confirm Interp Factor V Activity POC ABG pH POC ABG pCO2 POC ABG pO2 ABG pO2 ABG HCO3 ABG Base Excess ABG Hemoglobin Oxyhemoglobin Sodium Potassium Chloride Carbon Dioxide BUN 73 H Creatinine 2.3 H Glucose 120 H POC Glucose 137 H Lactic Acid Calcium Phosphorus Magnesium Direct Bilirubin AST ALT Alkaline Phosphatase Lactate Dehydrogenase Troponin T C-Reactive Protein Total Protein Albumin Prealbumin Triglycerides Cholesterol LDL Cholesterol Direct HDL Cholesterol Urine pH Urine WBC (Auto) Urine Creatinine Urine Total Protein Fluid Total Protein Vancomycin Trough Rheumatoid Factor Complement C4 Miscellaneous Test Crossmatch 10/16/16 10/16/16 10/16/16 05:44 06:25 06:25 WBC 22.5 H RBC 2.76 L Hgb 8.3 L Hct 25.2 L MCV MCH MCHC RDW 18.3 H Plt Count Lymph % (Auto) [place] % (Auto) Lymph # [place] # Baso # Seg Neutrophils % Seg Neuts % (Manual) Lymphocytes % (Manual) Monocytes % (Manual) Eosinophils % (Manual) Basophils % (Manual) Nucleated RBC % Seg Neutrophils # Seg Neutrophils # Man Lymphocytes # (Manual) Monocytes # (Manual) Eosinophils # (Manual) Basophils # (Manual) PT INR Fibrinogen dRVVT Confirm Interp Factor V Activity POC ABG pH POC ABG pCO2 POC ABG pO2 ABG pO2 ABG HCO3 ABG Base Excess ABG Hemoglobin Oxyhemoglobin Sodium Potassium Chloride Carbon Dioxide BUN 92 H Creatinine 3.0 H Glucose 138 H POC Glucose 110 H Lactic Acid Calcium Phosphorus Magnesium Direct Bilirubin AST ALT Alkaline Phosphatase Lactate Dehydrogenase Troponin T C-Reactive Protein Total Protein Albumin Prealbumin Triglycerides Cholesterol LDL Cholesterol Direct HDL Cholesterol Urine pH Urine WBC (Auto) Urine Creatinine Urine Total Protein Fluid Total Protein Vancomycin Trough Rheumatoid Factor Complement C4 Miscellaneous Test Crossmatch 10/16/16 10/16/16 10/16/16 11:27 11:48 17:36 WBC RBC Hgb Hct MCV MCH MCHC RDW Plt Count Lymph % (Auto) [place] % (Auto) Lymph # [place] # Baso # Seg Neutrophils % Seg Neuts % (Manual) Lymphocytes % (Manual) Monocytes % (Manual) Eosinophils % (Manual) Basophils % (Manual) Nucleated RBC % Seg Neutrophils # Seg Neutrophils # Man Lymphocytes # (Manual) Monocytes # (Manual) Eosinophils # (Manual) Basophils # (Manual) PT INR Fibrinogen dRVVT Confirm Interp Factor V Activity POC ABG pH 7.582 H POC ABG pCO2 27.4 L POC ABG pO2 110 H ABG pO2 ABG HCO3 ABG Base Excess ABG Hemoglobin Oxyhemoglobin Sodium Potassium Chloride Carbon Dioxide BUN Creatinine Glucose POC Glucose 121 H 133 H Lactic Acid Calcium Phosphorus Magnesium Direct Bilirubin AST ALT Alkaline Phosphatase Lactate Dehydrogenase Troponin T C-Reactive Protein Total Protein Albumin Prealbumin Triglycerides Cholesterol LDL Cholesterol Direct HDL Cholesterol Urine pH Urine WBC (Auto) Urine Creatinine Urine Total Protein Fluid Total Protein Vancomycin Trough Rheumatoid Factor Complement C4 Miscellaneous Test Crossmatch 10/16/16 10/17/16 10/17/16 20:48 04:24 04:24 WBC 21.4 H RBC 2.72 L Hgb 8.0 L Hct 25.2 L MCV MCH MCHC RDW 18.0 H Plt Count Lymph % (Auto) [place] % (Auto) Lymph # [place] # Baso # Seg Neutrophils % Seg Neuts % (Manual) Lymphocytes % (Manual) Monocytes % (Manual) Eosinophils % (Manual) Basophils % (Manual) Nucleated RBC % Seg Neutrophils # Seg Neutrophils # Man Lymphocytes # (Manual) Monocytes # (Manual) Eosinophils # (Manual) Basophils # (Manual) PT INR Fibrinogen dRVVT Confirm Interp Factor V Activity POC ABG pH 7.561 H POC ABG pCO2 24.4 L POC ABG pO2 77 L ABG pO2 ABG HCO3 ABG Base Excess ABG Hemoglobin Oxyhemoglobin Sodium 148 H Potassium Chloride Carbon Dioxide BUN 104 H Creatinine 3.0 H Glucose 149 H POC Glucose Lactic Acid Calcium Phosphorus Magnesium Direct Bilirubin AST ALT Alkaline Phosphatase 138 H Lactate Dehydrogenase Troponin T C-Reactive Protein Total Protein 6.2 L Albumin 1.5 L Prealbumin Triglycerides Cholesterol LDL Cholesterol Direct HDL Cholesterol Urine pH Urine WBC (Auto) Urine Creatinine Urine Total Protein Fluid Total Protein Vancomycin Trough Rheumatoid Factor Complement C4 Miscellaneous Test Crossmatch 10/17/16 10/17/16 10/17/16 06:02 12:17 17:14 WBC RBC Hgb Hct MCV MCH MCHC RDW Plt Count Lymph % (Auto) [place] % (Auto) Lymph # [place] # Baso # Seg Neutrophils % Seg Neuts % (Manual) Lymphocytes % (Manual) Monocytes % (Manual) Eosinophils % (Manual) Basophils % (Manual) Nucleated RBC % Seg Neutrophils # Seg Neutrophils # Man Lymphocytes # (Manual) Monocytes # (Manual) Eosinophils # (Manual) Basophils # (Manual) PT INR Fibrinogen dRVVT Confirm Interp Factor V Activity POC ABG pH POC ABG pCO2 POC ABG pO2 ABG pO2 ABG HCO3 ABG Base Excess ABG Hemoglobin Oxyhemoglobin Sodium Potassium Chloride Carbon Dioxide BUN Creatinine Glucose POC Glucose 170 H 167 H 126 H Lactic Acid Calcium Phosphorus Magnesium Direct Bilirubin AST ALT Alkaline Phosphatase Lactate Dehydrogenase Troponin T C-Reactive Protein Total Protein Albumin Prealbumin Triglycerides Cholesterol LDL Cholesterol Direct HDL Cholesterol Urine pH Urine WBC (Auto) Urine Creatinine Urine Total Protein Fluid Total Protein Vancomycin Trough Rheumatoid Factor Complement C4 Miscellaneous Test Crossmatch 10/17/16 10/18/16 10/18/16 23:17 04:00 04:00 WBC 20.7 H RBC 2.47 L Hgb 7.4 L Hct 22.9 L MCV MCH MCHC RDW 17.5 H Plt Count Lymph % (Auto) [place] % (Auto) Lymph # [place] # Baso # Seg Neutrophils % Seg Neuts % (Manual) Lymphocytes % (Manual) Monocytes % (Manual) Eosinophils % (Manual) Basophils % (Manual) Nucleated RBC % Seg Neutrophils # Seg Neutrophils # Man Lymphocytes # (Manual) Monocytes # (Manual) Eosinophils # (Manual) Basophils # (Manual) PT INR Fibrinogen dRVVT Confirm Interp Factor V Activity POC ABG pH POC ABG pCO2 POC ABG pO2 ABG pO2 ABG HCO3 ABG Base Excess ABG Hemoglobin Oxyhemoglobin Sodium 149 H Potassium Chloride 107.9 H Carbon Dioxide 20 L BUN 117 H Creatinine 3.2 H Glucose 119 H POC Glucose 121 H Lactic Acid Calcium Phosphorus Magnesium Direct Bilirubin AST ALT Alkaline Phosphatase Lactate Dehydrogenase Troponin T C-Reactive Protein Total Protein Albumin Prealbumin Triglycerides Cholesterol LDL Cholesterol Direct HDL Cholesterol Urine pH Urine WBC (Auto) Urine Creatinine Urine Total Protein Fluid Total Protein Vancomycin Trough Rheumatoid Factor Complement C4 Miscellaneous Test Crossmatch 10/18/16 10/18/16 10/18/16 05:23 10:46 17:30 WBC RBC Hgb Hct MCV MCH MCHC RDW Plt Count Lymph % (Auto) [place] % (Auto) Lymph # [place] # Baso # Seg Neutrophils % Seg Neuts % (Manual) Lymphocytes % (Manual) Monocytes % (Manual) Eosinophils % (Manual) Basophils % (Manual) Nucleated RBC % Seg Neutrophils # Seg Neutrophils # Man Lymphocytes # (Manual) Monocytes # (Manual) Eosinophils # (Manual) Basophils # (Manual) PT INR Fibrinogen dRVVT Confirm Interp Factor V Activity POC ABG pH POC ABG pCO2 POC ABG pO2 ABG pO2 ABG HCO3 ABG Base Excess ABG Hemoglobin Oxyhemoglobin Sodium Potassium Chloride Carbon Dioxide BUN Creatinine Glucose POC Glucose 119 H 155 H 124 H Lactic Acid Calcium Phosphorus Magnesium Direct Bilirubin AST ALT Alkaline Phosphatase Lactate Dehydrogenase Troponin T C-Reactive Protein Total Protein Albumin Prealbumin Triglycerides Cholesterol LDL Cholesterol Direct HDL Cholesterol Urine pH Urine WBC (Auto) Urine Creatinine Urine Total Protein Fluid Total Protein Vancomycin Trough Rheumatoid Factor Complement C4 Miscellaneous Test Crossmatch 10/19/16 10/19/16 10/19/16 04:00 04:00 05:25 WBC 17.4 H RBC 2.54 L Hgb 7.7 L Hct 23.6 L MCV MCH MCHC RDW 17.3 H Plt Count Lymph % (Auto) [place] % (Auto) Lymph # [place] # Baso # Seg Neutrophils % Seg Neuts % (Manual) Lymphocytes % (Manual) Monocytes % (Manual) Eosinophils % (Manual) Basophils % (Manual) Nucleated RBC % Seg Neutrophils # Seg Neutrophils # Man Lymphocytes # (Manual) Monocytes # (Manual) Eosinophils # (Manual) Basophils # (Manual) PT INR Fibrinogen dRVVT Confirm Interp Factor V Activity POC ABG pH POC ABG pCO2 POC ABG pO2 ABG pO2 ABG HCO3 ABG Base Excess ABG Hemoglobin Oxyhemoglobin Sodium Potassium Chloride Carbon Dioxide BUN 72 H Creatinine 2.1 H Glucose 116 H POC Glucose 119 H Lactic Acid Calcium Phosphorus Magnesium Direct Bilirubin AST ALT Alkaline Phosphatase Lactate Dehydrogenase Troponin T C-Reactive Protein Total Protein Albumin Prealbumin Triglycerides Cholesterol LDL Cholesterol Direct HDL Cholesterol Urine pH Urine WBC (Auto) Urine Creatinine Urine Total Protein Fluid Total Protein Vancomycin Trough Rheumatoid Factor Complement C4 Miscellaneous Test Crossmatch 10/19/16 10/19/16 10/20/16 11:46 23:59 06:00 WBC RBC Hgb Hct MCV MCH MCHC RDW Plt Count Lymph % (Auto) [place] % (Auto) Lymph # [place] # Baso # Seg Neutrophils % Seg Neuts % (Manual) Lymphocytes % (Manual) Monocytes % (Manual) Eosinophils % (Manual) Basophils % (Manual) Nucleated RBC % Seg Neutrophils # Seg Neutrophils # Man Lymphocytes # (Manual) Monocytes # (Manual) Eosinophils # (Manual) Basophils # (Manual) PT INR Fibrinogen dRVVT Confirm Interp Factor V Activity POC ABG pH POC ABG pCO2 POC ABG pO2 ABG pO2 ABG HCO3 ABG Base Excess ABG Hemoglobin Oxyhemoglobin Sodium Potassium Chloride Carbon Dioxide 17 L BUN 94 H Creatinine 2.7 H Glucose POC Glucose 116 H 117 H Lactic Acid Calcium Phosphorus Magnesium Direct Bilirubin AST ALT Alkaline Phosphatase Lactate Dehydrogenase Troponin T C-Reactive Protein Total Protein Albumin Prealbumin Triglycerides Cholesterol LDL Cholesterol Direct HDL Cholesterol Urine pH Urine WBC (Auto) Urine Creatinine Urine Total Protein Fluid Total Protein Vancomycin Trough Rheumatoid Factor Complement C4 Miscellaneous Test Crossmatch 10/20/16 10/20/16 10/20/16 06:00 11:49 16:00 WBC 19.7 H RBC 2.51 L Hgb 7.7 L Hct 23.5 L MCV MCH MCHC RDW 17.5 H Plt Count Lymph % (Auto) [place] % (Auto) Lymph # [place] # Baso # Seg Neutrophils % Seg Neuts % (Manual) Lymphocytes % (Manual) Monocytes % (Manual) Eosinophils % (Manual) Basophils % (Manual) Nucleated RBC % Seg Neutrophils # Seg Neutrophils # Man Lymphocytes # (Manual) Monocytes # (Manual) Eosinophils # (Manual) Basophils # (Manual) PT INR Fibrinogen dRVVT Confirm Interp Factor V Activity POC ABG pH POC ABG pCO2 POC ABG pO2 ABG pO2 ABG HCO3 ABG Base Excess ABG Hemoglobin Oxyhemoglobin Sodium Potassium Chloride Carbon Dioxide BUN Creatinine Glucose POC Glucose 117 H Lactic Acid Calcium Phosphorus Magnesium Direct Bilirubin AST ALT Alkaline Phosphatase Lactate Dehydrogenase Troponin T C-Reactive Protein Total Protein Albumin Prealbumin Triglycerides Cholesterol LDL Cholesterol Direct HDL Cholesterol Urine pH Urine WBC (Auto) Urine Creatinine Urine Total Protein Fluid Total Protein Vancomycin Trough Rheumatoid Factor Complement C4 Miscellaneous Test Flexitest 1 H Crossmatch 10/20/16 10/20/1617 18:36 23:39 04:00 WBC RBC Hgb Hct MCV MCH MCHC RDW Plt Count Lymph % (Auto) [place] % (Auto) Lymph # [place] # Baso # Seg Neutrophils % Seg Neuts % (Manual) Lymphocytes % (Manual) Monocytes % (Manual) Eosinophils % (Manual) Basophils % (Manual) Nucleated RBC % Seg Neutrophils # Seg Neutrophils # Man Lymphocytes # (Manual) Monocytes # (Manual) Eosinophils # (Manual) Basophils # (Manual) PT INR Fibrinogen dRVVT Confirm Interp Factor V Activity POC ABG pH POC ABG pCO2 POC ABG pO2 ABG pO2 ABG HCO3 ABG Base Excess ABG Hemoglobin Oxyhemoglobin Sodium Potassium 5.4 H D Chloride Carbon Dioxide 15 L BUN 110 H Creatinine 3.0 H Glucose POC Glucose 127 H 114 H Lactic Acid Calcium Phosphorus Magnesium Direct Bilirubin AST ALT Alkaline Phosphatase Lactate Dehydrogenase Troponin T C-Reactive Protein Total Protein Albumin Prealbumin Triglycerides Cholesterol LDL Cholesterol Direct HDL Cholesterol Urine pH Urine WBC (Auto) Urine Creatinine Urine Total Protein Fluid Total Protein Vancomycin Trough Rheumatoid Factor Complement C4 Miscellaneous Test Crossmatch 10/21/16 10/21/16 10/22/16 05:54 23:46 05:18 WBC RBC Hgb Hct MCV MCH MCHC RDW Plt Count Lymph % (Auto) [place] % (Auto) Lymph # [place] # Baso # Seg Neutrophils % Seg Neuts % (Manual) Lymphocytes % (Manual) Monocytes % (Manual) Eosinophils % (Manual) Basophils % (Manual) Nucleated RBC % Seg Neutrophils # Seg Neutrophils # Man Lymphocytes # (Manual) Monocytes # (Manual) Eosinophils # (Manual) Basophils # (Manual) PT INR Fibrinogen dRVVT Confirm Interp Factor V Activity POC ABG pH POC ABG pCO2 POC ABG pO2 ABG pO2 ABG HCO3 ABG Base Excess ABG Hemoglobin Oxyhemoglobin Sodium Potassium Chloride Carbon Dioxide BUN Creatinine Glucose POC Glucose 119 H 108 H 109 H Lactic Acid Calcium Phosphorus Magnesium Direct Bilirubin AST ALT Alkaline Phosphatase Lactate Dehydrogenase Troponin T C-Reactive Protein Total Protein Albumin Prealbumin Triglycerides Cholesterol LDL Cholesterol Direct HDL Cholesterol Urine pH Urine WBC (Auto) Urine Creatinine Urine Total Protein Fluid Total Protein Vancomycin Trough Rheumatoid Factor Complement C4 Miscellaneous Test Crossmatch 10/22/16 10/22/16 10/22/16 06:40 06:40 06:40 WBC 14.0 H RBC 2.03 L Hgb 7.0 L Hct 20.5 L MCV 98 H MCH 34 H MCHC 35 H RDW 17.8 H Plt Count Lymph % (Auto) [place] % (Auto) 9.9 H Lymph # [place] # 1.4 H Baso # 0.2 H Seg Neutrophils % 72.0 H Seg Neuts % (Manual) Lymphocytes % (Manual) Monocytes % (Manual) Eosinophils % (Manual) Basophils % (Manual) Nucleated RBC % Seg Neutrophils # 10.0 H Seg Neutrophils # Man Lymphocytes # (Manual) Monocytes # (Manual) Eosinophils # (Manual) Basophils # (Manual) PT INR Fibrinogen dRVVT Confirm Interp Factor V Activity POC ABG pH POC ABG pCO2 POC ABG pO2 ABG pO2 ABG HCO3 ABG Base Excess ABG Hemoglobin Oxyhemoglobin Sodium 130 L D Potassium Chloride 92.4 L Carbon Dioxide 20 L BUN 50 H Creatinine 1.6 H Glucose 589 H* POC Glucose Lactic Acid Calcium 7.8 L D Phosphorus Magnesium 1.60 L Direct Bilirubin AST ALT Alkaline Phosphatase Lactate Dehydrogenase Troponin T C-Reactive Protein Total Protein Albumin Prealbumin Triglycerides Cholesterol LDL Cholesterol Direct HDL Cholesterol Urine pH Urine WBC (Auto) Urine Creatinine Urine Total Protein Fluid Total Protein Vancomycin Trough Rheumatoid Factor Complement C4 Miscellaneous Test Crossmatch 10/22/16 10/22/16 10/22/16 11:39 16:44 23:36 WBC RBC Hgb Hct MCV MCH MCHC RDW Plt Count Lymph % (Auto) [place] % (Auto) Lymph # [place] # Baso # Seg Neutrophils % Seg Neuts % (Manual) Lymphocytes % (Manual) Monocytes % (Manual) Eosinophils % (Manual) Basophils % (Manual) Nucleated RBC % Seg Neutrophils # Seg Neutrophils # Man Lymphocytes # (Manual) Monocytes # (Manual) Eosinophils # (Manual) Basophils # (Manual) PT INR Fibrinogen dRVVT Confirm Interp Factor V Activity POC ABG pH POC ABG pCO2 POC ABG pO2 ABG pO2 ABG HCO3 ABG Base Excess ABG Hemoglobin Oxyhemoglobin Sodium Potassium Chloride Carbon Dioxide BUN Creatinine Glucose POC Glucose 142 H 163 H 123 H Lactic Acid Calcium Phosphorus Magnesium Direct Bilirubin AST ALT Alkaline Phosphatase Lactate Dehydrogenase Troponin T C-Reactive Protein Total Protein Albumin Prealbumin Triglycerides Cholesterol LDL Cholesterol Direct HDL Cholesterol Urine pH Urine WBC (Auto) Urine Creatinine Urine Total Protein Fluid Total Protein Vancomycin Trough Rheumatoid Factor Complement C4 Miscellaneous Test Crossmatch 10/23/16 10/23/16 10/23/16 04:58 06:00 12:12 WBC RBC Hgb Hct MCV MCH MCHC RDW Plt Count Lymph % (Auto) [place] % (Auto) Lymph # [place] # Baso # Seg Neutrophils % Seg Neuts % (Manual) Lymphocytes % (Manual) Monocytes % (Manual) Eosinophils % (Manual) Basophils % (Manual) Nucleated RBC % Seg Neutrophils # Seg Neutrophils # Man Lymphocytes # (Manual) Monocytes # (Manual) Eosinophils # (Manual) Basophils # (Manual) PT INR Fibrinogen dRVVT Confirm Interp Factor V Activity POC ABG pH POC ABG pCO2 POC ABG pO2 ABG pO2 ABG HCO3 ABG Base Excess ABG Hemoglobin Oxyhemoglobin Sodium 133 L Potassium 3.5 L Chloride 96.1 L Carbon Dioxide 18 L BUN 76 H Creatinine 2.1 H Glucose POC Glucose 133 H 138 H Lactic Acid Calcium 8.3 L Phosphorus Magnesium Direct Bilirubin AST ALT Alkaline Phosphatase Lactate Dehydrogenase Troponin T C-Reactive Protein Total Protein Albumin Prealbumin Triglycerides Cholesterol LDL Cholesterol Direct HDL Cholesterol Urine pH Urine WBC (Auto) Urine Creatinine Urine Total Protein Fluid Total Protein Vancomycin Trough Rheumatoid Factor Complement C4 Miscellaneous Test Crossmatch 10/23/16 10/23/16 10/24/16 16:53 23:37 04:00 WBC RBC Hgb Hct MCV MCH MCHC RDW Plt Count Lymph % (Auto) [place] % (Auto) Lymph # [place] # Baso # Seg Neutrophils % Seg Neuts % (Manual) Lymphocytes % (Manual) Monocytes % (Manual) Eosinophils % (Manual) Basophils % (Manual) Nucleated RBC % Seg Neutrophils # Seg Neutrophils # Man Lymphocytes # (Manual) Monocytes # (Manual) Eosinophils # (Manual) Basophils # (Manual) PT INR Fibrinogen dRVVT Confirm Interp Factor V Activity POC ABG pH POC ABG pCO2 POC ABG pO2 ABG pO2 ABG HCO3 ABG Base Excess ABG Hemoglobin Oxyhemoglobin Sodium 131 L Potassium Chloride 94.5 L Carbon Dioxide 19 L BUN 97 H Creatinine 2.6 H Glucose 110 H POC Glucose 125 H 123 H Lactic Acid Calcium 8.3 L Phosphorus Magnesium Direct Bilirubin AST ALT Alkaline Phosphatase Lactate Dehydrogenase Troponin T C-Reactive Protein Total Protein Albumin Prealbumin Triglycerides Cholesterol LDL Cholesterol Direct HDL Cholesterol Urine pH Urine WBC (Auto) Urine Creatinine Urine Total Protein Fluid Total Protein Vancomycin Trough Rheumatoid Factor Complement C4 Miscellaneous Test Crossmatch 10/24/16 10/24/16 10/24/16 07:49 11:39 17:52 WBC RBC Hgb 6.0 L Hct 19.7 L* MCV MCH MCHC RDW Plt Count Lymph % (Auto) [place] % (Auto) Lymph # [place] # Baso # Seg Neutrophils % Seg Neuts % (Manual) Lymphocytes % (Manual) Monocytes % (Manual) Eosinophils % (Manual) Basophils % (Manual) Nucleated RBC % Seg Neutrophils # Seg Neutrophils # Man Lymphocytes # (Manual) Monocytes # (Manual) Eosinophils # (Manual) Basophils # (Manual) PT INR Fibrinogen dRVVT Confirm Interp Factor V Activity POC ABG pH POC ABG pCO2 POC ABG pO2 ABG pO2 ABG HCO3 ABG Base Excess ABG Hemoglobin Oxyhemoglobin Sodium Potassium Chloride Carbon Dioxide BUN Creatinine Glucose POC Glucose 106 H 158 H Lactic Acid Calcium Phosphorus Magnesium Direct Bilirubin AST ALT Alkaline Phosphatase Lactate Dehydrogenase Troponin T C-Reactive Protein Total Protein Albumin Prealbumin Triglycerides Cholesterol LDL Cholesterol Direct HDL Cholesterol Urine pH Urine WBC (Auto) Urine Creatinine Urine Total Protein Fluid Total Protein Vancomycin Trough Rheumatoid Factor Complement C4 Miscellaneous Test Crossmatch 10/24/16 10/24/16 10/24/16 20:00 22:27 Unknown WBC RBC Hgb 9.4 L D Hct 27.5 L D MCV MCH MCHC RDW Plt Count Lymph % (Auto) [place] % (Auto) Lymph # [place] # Baso # Seg Neutrophils % Seg Neuts % (Manual) Lymphocytes % (Manual) Monocytes % (Manual) Eosinophils % (Manual) Basophils % (Manual) Nucleated RBC % Seg Neutrophils # Seg Neutrophils # Man Lymphocytes # (Manual) Monocytes # (Manual) Eosinophils # (Manual) Basophils # (Manual) PT INR Fibrinogen dRVVT Confirm Interp Factor V Activity POC ABG pH POC ABG pCO2 POC ABG pO2 ABG pO2 ABG HCO3 ABG Base Excess ABG Hemoglobin Oxyhemoglobin Sodium Potassium Chloride Carbon Dioxide BUN Creatinine Glucose POC Glucose 125 H Lactic Acid Calcium Phosphorus Magnesium Direct Bilirubin AST ALT Alkaline Phosphatase Lactate Dehydrogenase Troponin T C-Reactive Protein Total Protein Albumin Prealbumin Triglycerides Cholesterol LDL Cholesterol Direct HDL Cholesterol Urine pH Urine WBC (Auto) Urine Creatinine Urine Total Protein Fluid Total Protein Vancomycin Trough Rheumatoid Factor Complement C4 Miscellaneous Test Crossmatch See Detail 10/25/16 10/25/16 10/25/16 04:00 04:00 04:00 WBC 14.2 H RBC 2.98 L Hgb 9.0 L Hct 26.2 L MCV MCH MCHC RDW 16.6 H Plt Count Lymph % (Auto) [place] % (Auto) 10.7 H Lymph # [place] # 1.5 H Baso # Seg Neutrophils % 73.6 H Seg Neuts % (Manual) Lymphocytes % (Manual) Monocytes % (Manual) Eosinophils % (Manual) Basophils % (Manual) Nucleated RBC % Seg Neutrophils # 10.5 H Seg Neutrophils # Man Lymphocytes # (Manual) Monocytes # (Manual) Eosinophils # (Manual) Basophils # (Manual) PT INR Fibrinogen dRVVT Confirm Interp Factor V Activity POC ABG pH POC ABG pCO2 POC ABG pO2 ABG pO2 ABG HCO3 ABG Base Excess ABG Hemoglobin Oxyhemoglobin Sodium 132 L Potassium Chloride 94.7 L Carbon Dioxide BUN 51 H Creatinine 1.6 H Glucose 130 H POC Glucose Lactic Acid Calcium 8.3 L Phosphorus 1.60 L D Magnesium Direct Bilirubin AST ALT Alkaline Phosphatase Lactate Dehydrogenase Troponin T C-Reactive Protein Total Protein Albumin Prealbumin Triglycerides Cholesterol LDL Cholesterol Direct HDL Cholesterol Urine pH Urine WBC (Auto) Urine Creatinine Urine Total Protein Fluid Total Protein Vancomycin Trough Rheumatoid Factor Complement C4 Miscellaneous Test Crossmatch 10/25/16 10/25/16 10/25/16 04:32 11:48 17:22 WBC RBC Hgb Hct MCV MCH MCHC RDW Plt Count Lymph % (Auto) [place] % (Auto) Lymph # [place] # Baso # Seg Neutrophils % Seg Neuts % (Manual) Lymphocytes % (Manual) Monocytes % (Manual) Eosinophils % (Manual) Basophils % (Manual) Nucleated RBC % Seg Neutrophils # Seg Neutrophils # Man Lymphocytes # (Manual) Monocytes # (Manual) Eosinophils # (Manual) Basophils # (Manual) PT INR Fibrinogen dRVVT Confirm Interp Factor V Activity POC ABG pH POC ABG pCO2 POC ABG pO2 ABG pO2 ABG HCO3 ABG Base Excess ABG Hemoglobin Oxyhemoglobin Sodium Potassium Chloride Carbon Dioxide BUN Creatinine Glucose POC Glucose 124 H 171 H 120 H Lactic Acid Calcium Phosphorus Magnesium Direct Bilirubin AST ALT Alkaline Phosphatase Lactate Dehydrogenase Troponin T C-Reactive Protein Total Protein Albumin Prealbumin Triglycerides Cholesterol LDL Cholesterol Direct HDL Cholesterol Urine pH Urine WBC (Auto) Urine Creatinine Urine Total Protein Fluid Total Protein Vancomycin Trough Rheumatoid Factor Complement C4 Miscellaneous Test Crossmatch 10/26/16 10/26/16 10/26/16 04:54 07:06 07:06 WBC 16.9 H RBC 3.06 L Hgb 9.1 L Hct 26.9 L MCV MCH MCHC RDW 16.9 H Plt Count Lymph % (Auto) [place] % (Auto) Lymph # [place] # Baso # Seg Neutrophils % Seg Neuts % (Manual) 71.0 H Lymphocytes % (Manual) 5.0 L Monocytes % (Manual) 12.0 H Eosinophils % (Manual) Basophils % (Manual) Nucleated RBC % Seg Neutrophils # Seg Neutrophils # Man 12.0 H Lymphocytes # (Manual) 0.8 L Monocytes # (Manual) 2.0 H Eosinophils # (Manual) Basophils # (Manual) PT INR Fibrinogen dRVVT Confirm Interp Factor V Activity POC ABG pH POC ABG pCO2 POC ABG pO2 ABG pO2 ABG HCO3 ABG Base Excess ABG Hemoglobin Oxyhemoglobin Sodium 135 L Potassium Chloride 97.1 L Carbon Dioxide BUN 73 H Creatinine 2.2 H Glucose 117 H POC Glucose 123 H Lactic Acid Calcium Phosphorus 1.70 L Magnesium Direct Bilirubin AST ALT Alkaline Phosphatase Lactate Dehydrogenase Troponin T C-Reactive Protein Total Protein Albumin Prealbumin Triglycerides Cholesterol LDL Cholesterol Direct HDL Cholesterol Urine pH Urine WBC (Auto) Urine Creatinine Urine Total Protein Fluid Total Protein Vancomycin Trough Rheumatoid Factor Complement C4 Miscellaneous Test Crossmatch 10/26/16 10/26/16 10/26/16 12:12 17:29 23:42 WBC RBC Hgb Hct MCV MCH MCHC RDW Plt Count Lymph % (Auto) [place] % (Auto) Lymph # [place] # Baso # Seg Neutrophils % Seg Neuts % (Manual) Lymphocytes % (Manual) Monocytes % (Manual) Eosinophils % (Manual) Basophils % (Manual) Nucleated RBC % Seg Neutrophils # Seg Neutrophils # Man Lymphocytes # (Manual) Monocytes # (Manual) Eosinophils # (Manual) Basophils # (Manual) PT INR Fibrinogen dRVVT Confirm Interp Factor V Activity POC ABG pH POC ABG pCO2 POC ABG pO2 ABG pO2 ABG HCO3 ABG Base Excess ABG Hemoglobin Oxyhemoglobin Sodium Potassium Chloride Carbon Dioxide BUN Creatinine Glucose POC Glucose 126 H 161 H 118 H Lactic Acid Calcium Phosphorus Magnesium Direct Bilirubin AST ALT Alkaline Phosphatase Lactate Dehydrogenase Troponin T C-Reactive Protein Total Protein Albumin Prealbumin Triglycerides Cholesterol LDL Cholesterol Direct HDL Cholesterol Urine pH Urine WBC (Auto) Urine Creatinine Urine Total Protein Fluid Total Protein Vancomycin Trough Rheumatoid Factor Complement C4 Miscellaneous Test Crossmatch 10/27/16 10/27/16 10/27/16 05:03 06:30 06:30 WBC 13.9 H RBC 3.09 L Hgb 9.2 L Hct 27.5 L MCV MCH MCHC RDW 17.0 H Plt Count Lymph % (Auto) [place] % (Auto) Lymph # [place] # Baso # Seg Neutrophils % Seg Neuts % (Manual) 78.0 H Lymphocytes % (Manual) Monocytes % (Manual) Eosinophils % (Manual) Basophils % (Manual) Nucleated RBC % 2.0 H Seg Neutrophils # Seg Neutrophils # Man 10.8 H Lymphocytes # (Manual) Monocytes # (Manual) 1.0 H Eosinophils # (Manual) Basophils # (Manual) PT INR Fibrinogen dRVVT Confirm Interp Factor V Activity POC ABG pH POC ABG pCO2 POC ABG pO2 ABG pO2 ABG HCO3 ABG Base Excess ABG Hemoglobin Oxyhemoglobin Sodium Potassium Chloride Carbon Dioxide BUN 40 H Creatinine 1.5 H Glucose 135 H POC Glucose 107 H Lactic Acid Calcium 8.3 L Phosphorus 1.30 L D Magnesium Direct Bilirubin AST ALT Alkaline Phosphatase Lactate Dehydrogenase Troponin T C-Reactive Protein Total Protein Albumin Prealbumin Triglycerides Cholesterol LDL Cholesterol Direct HDL Cholesterol Urine pH Urine WBC (Auto) Urine Creatinine Urine Total Protein Fluid Total Protein Vancomycin Trough Rheumatoid Factor Complement C4 Miscellaneous Test Crossmatch 10/27/16 10/27/16 10/27/16 13:27 18:07 23:40 WBC RBC Hgb Hct MCV MCH MCHC RDW Plt Count Lymph % (Auto) [place] % (Auto) Lymph # [place] # Baso # Seg Neutrophils % Seg Neuts % (Manual) Lymphocytes % (Manual) Monocytes % (Manual) Eosinophils % (Manual) Basophils % (Manual) Nucleated RBC % Seg Neutrophils # Seg Neutrophils # Man Lymphocytes # (Manual) Monocytes # (Manual) Eosinophils # (Manual) Basophils # (Manual) PT INR Fibrinogen dRVVT Confirm Interp Factor V Activity POC ABG pH POC ABG pCO2 POC ABG pO2 ABG pO2 ABG HCO3 ABG Base Excess ABG Hemoglobin Oxyhemoglobin Sodium Potassium Chloride Carbon Dioxide BUN Creatinine Glucose POC Glucose 117 H 121 H 118 H Lactic Acid Calcium Phosphorus Magnesium Direct Bilirubin AST ALT Alkaline Phosphatase Lactate Dehydrogenase Troponin T C-Reactive Protein Total Protein Albumin Prealbumin Triglycerides Cholesterol LDL Cholesterol Direct HDL Cholesterol Urine pH Urine WBC (Auto) Urine Creatinine Urine Total Protein Fluid Total Protein Vancomycin Trough Rheumatoid Factor Complement C4 Miscellaneous Test Crossmatch 10/28/16 10/28/16 10/28/16 05:48 06:45 06:45 WBC 14.7 H RBC 3.05 L Hgb 9.0 L Hct 26.9 L MCV MCH MCHC RDW 16.8 H Plt Count Lymph % (Auto) 8.2 L [place] % (Auto) 8.4 H Lymph # [place] # 1.2 H Baso # Seg Neutrophils % 81.9 H Seg Neuts % (Manual) Lymphocytes % (Manual) Monocytes % (Manual) Eosinophils % (Manual) Basophils % (Manual) Nucleated RBC % Seg Neutrophils # 12.1 H Seg Neutrophils # Man Lymphocytes # (Manual) Monocytes # (Manual) Eosinophils # (Manual) Basophils # (Manual) PT INR Fibrinogen dRVVT Confirm Interp Factor V Activity POC ABG pH POC ABG pCO2 POC ABG pO2 ABG pO2 ABG HCO3 ABG Base Excess ABG Hemoglobin Oxyhemoglobin Sodium Potassium Chloride Carbon Dioxide BUN 60 H Creatinine 1.9 H Glucose 120 H POC Glucose 114 H Lactic Acid Calcium Phosphorus Magnesium Direct Bilirubin AST ALT Alkaline Phosphatase Lactate Dehydrogenase Troponin T C-Reactive Protein Total Protein Albumin Prealbumin Triglycerides Cholesterol LDL Cholesterol Direct HDL Cholesterol Urine pH Urine WBC (Auto) Urine Creatinine Urine Total Protein Fluid Total Protein Vancomycin Trough Rheumatoid Factor Complement C4 Miscellaneous Test Crossmatch 10/28/16 10/28/16 10/29/16 17:08 23:50 05:10 WBC RBC Hgb Hct MCV MCH MCHC RDW Plt Count Lymph % (Auto) [place] % (Auto) Lymph # [place] # Baso # Seg Neutrophils % Seg Neuts % (Manual) Lymphocytes % (Manual) Monocytes % (Manual) Eosinophils % (Manual) Basophils % (Manual) Nucleated RBC % Seg Neutrophils # Seg Neutrophils # Man Lymphocytes # (Manual) Monocytes # (Manual) Eosinophils # (Manual) Basophils # (Manual) PT INR Fibrinogen dRVVT Confirm Interp Factor V Activity POC ABG pH POC ABG pCO2 POC ABG pO2 ABG pO2 ABG HCO3 ABG Base Excess ABG Hemoglobin Oxyhemoglobin Sodium Potassium Chloride Carbon Dioxide BUN Creatinine Glucose POC Glucose 109 H 110 H 124 H Lactic Acid Calcium Phosphorus Magnesium Direct Bilirubin AST ALT Alkaline Phosphatase Lactate Dehydrogenase Troponin T C-Reactive Protein Total Protein Albumin Prealbumin Triglycerides Cholesterol LDL Cholesterol Direct HDL Cholesterol Urine pH Urine WBC (Auto) Urine Creatinine Urine Total Protein Fluid Total Protein Vancomycin Trough Rheumatoid Factor Complement C4 Miscellaneous Test Crossmatch 10/29/16 10/29/16 10/29/16 07:45 07:45 12:19 WBC 14.7 H RBC 3.15 L Hgb 9.3 L Hct 28.9 L MCV MCH MCHC RDW 17.0 H Plt Count Lymph % (Auto) 11.9 L [place] % (Auto) 8.6 H Lymph # [place] # 1.3 H Baso # Seg Neutrophils % 78.1 H Seg Neuts % (Manual) Lymphocytes % (Manual) Monocytes % (Manual) Eosinophils % (Manual) Basophils % (Manual) Nucleated RBC % Seg Neutrophils # 11.4 H Seg Neutrophils # Man Lymphocytes # (Manual) Monocytes # (Manual) Eosinophils # (Manual) Basophils # (Manual) PT INR Fibrinogen dRVVT Confirm Interp Factor V Activity POC ABG pH POC ABG pCO2 POC ABG pO2 ABG pO2 ABG HCO3 ABG Base Excess ABG Hemoglobin Oxyhemoglobin Sodium Potassium 5.1 H Chloride Carbon Dioxide 19 L BUN 78 H Creatinine 2.2 H Glucose 116 H POC Glucose 118 H Lactic Acid Calcium Phosphorus Magnesium Direct Bilirubin AST ALT Alkaline Phosphatase Lactate Dehydrogenase Troponin T C-Reactive Protein Total Protein Albumin Prealbumin Triglycerides Cholesterol LDL Cholesterol Direct HDL Cholesterol Urine pH Urine WBC (Auto) Urine Creatinine Urine Total Protein Fluid Total Protein Vancomycin Trough Rheumatoid Factor Complement C4 Miscellaneous Test Crossmatch 10/29/16 10/30/16 10/30/16 17:49 01:52 03:28 WBC RBC Hgb Hct MCV MCH MCHC RDW Plt Count Lymph % (Auto) [place] % (Auto) Lymph # [place] # Baso # Seg Neutrophils % Seg Neuts % (Manual) Lymphocytes % (Manual) Monocytes % (Manual) Eosinophils % (Manual) Basophils % (Manual) Nucleated RBC % Seg Neutrophils # Seg Neutrophils # Man Lymphocytes # (Manual) Monocytes # (Manual) Eosinophils # (Manual) Basophils # (Manual) PT INR Fibrinogen dRVVT Confirm Interp Factor V Activity POC ABG pH POC ABG pCO2 POC ABG pO2 ABG pO2 ABG HCO3 ABG Base Excess ABG Hemoglobin Oxyhemoglobin Sodium Potassium 5.4 H Chloride 97.5 L Carbon Dioxide 19 L BUN 90 H Creatinine 2.5 H Glucose POC Glucose 120 H 129 H Lactic Acid Calcium Phosphorus 5.20 H Magnesium Direct Bilirubin AST ALT Alkaline Phosphatase Lactate Dehydrogenase Troponin T C-Reactive Protein Total Protein Albumin Prealbumin Triglycerides Cholesterol LDL Cholesterol Direct HDL Cholesterol Urine pH Urine WBC (Auto) Urine Creatinine Urine Total Protein Fluid Total Protein Vancomycin Trough Rheumatoid Factor Complement C4 Miscellaneous Test Crossmatch 10/30/16 10/30/16 10/30/16 03:28 08:19 08:19 WBC 11.6 H 15.9 H RBC 2.75 L 2.82 L Hgb 7.9 L 8.3 L Hct 24.2 L 25.2 L MCV MCH MCHC RDW 16.7 H 17.2 H Plt Count Lymph % (Auto) [place] % (Auto) 9.8 H Lymph # [place] # 1.1 H Baso # Seg Neutrophils % 74.2 H Seg Neuts % (Manual) Lymphocytes % (Manual) Monocytes % (Manual) Eosinophils % (Manual) Basophils % (Manual) Nucleated RBC % Seg Neutrophils # 8.6 H Seg Neutrophils # Man Lymphocytes # (Manual) Monocytes # (Manual) Eosinophils # (Manual) Basophils # (Manual) PT INR Fibrinogen dRVVT Confirm Interp Factor V Activity POC ABG pH POC ABG pCO2 POC ABG pO2 ABG pO2 ABG HCO3 ABG Base Excess ABG Hemoglobin Oxyhemoglobin Sodium Potassium 5.3 H Chloride 97.4 L Carbon Dioxide 19 L BUN 93 H Creatinine 2.6 H Glucose POC Glucose Lactic Acid Calcium Phosphorus Magnesium Direct Bilirubin AST ALT Alkaline Phosphatase Lactate Dehydrogenase Troponin T C-Reactive Protein Total Protein Albumin Prealbumin Triglycerides Cholesterol LDL Cholesterol Direct HDL Cholesterol Urine pH Urine WBC (Auto) Urine Creatinine Urine Total Protein Fluid Total Protein Vancomycin Trough Rheumatoid Factor Complement C4 Miscellaneous Test Crossmatch 10/30/16 10/30/16 10/31/16 17:11 23:56 00:40 WBC RBC Hgb Hct MCV MCH MCHC RDW Plt Count Lymph % (Auto) [place] % (Auto) Lymph # [place] # Baso # Seg Neutrophils % Seg Neuts % (Manual) Lymphocytes % (Manual) Monocytes % (Manual) Eosinophils % (Manual) Basophils % (Manual) Nucleated RBC % Seg Neutrophils # Seg Neutrophils # Man Lymphocytes # (Manual) Monocytes # (Manual) Eosinophils # (Manual) Basophils # (Manual) PT INR Fibrinogen dRVVT Confirm Interp Factor V Activity POC ABG pH POC ABG pCO2 POC ABG pO2 ABG pO2 ABG HCO3 ABG Base Excess ABG Hemoglobin Oxyhemoglobin Sodium Potassium Chloride Carbon Dioxide BUN Creatinine Glucose POC Glucose 106 H 117 H 120 H Lactic Acid Calcium Phosphorus Magnesium Direct Bilirubin AST ALT Alkaline Phosphatase Lactate Dehydrogenase Troponin T C-Reactive Protein Total Protein Albumin Prealbumin Triglycerides Cholesterol LDL Cholesterol Direct HDL Cholesterol Urine pH Urine WBC (Auto) Urine Creatinine Urine Total Protein Fluid Total Protein Vancomycin Trough Rheumatoid Factor Complement C4 Miscellaneous Test Crossmatch 10/31/16 10/31/16 10/31/16 05:43 07:15 07:15 WBC 12.1 H RBC 2.63 L Hgb 7.7 L Hct 23.3 L MCV MCH MCHC RDW 16.7 H Plt Count Lymph % (Auto) 11.7 L [place] % (Auto) 7.7 H Lymph # [place] # 0.9 H Baso # Seg Neutrophils % 78.0 H Seg Neuts % (Manual) Lymphocytes % (Manual) Monocytes % (Manual) Eosinophils % (Manual) Basophils % (Manual) Nucleated RBC % Seg Neutrophils # 9.4 H Seg Neutrophils # Man Lymphocytes # (Manual) Monocytes # (Manual) Eosinophils # (Manual) Basophils # (Manual) PT INR Fibrinogen dRVVT Confirm Interp Factor V Activity POC ABG pH POC ABG pCO2 POC ABG pO2 ABG pO2 ABG HCO3 ABG Base Excess ABG Hemoglobin Oxyhemoglobin Sodium Potassium Chloride 96.4 L Carbon Dioxide 21 L BUN 99 H Creatinine 2.6 H Glucose 144 H POC Glucose 125 H Lactic Acid Calcium Phosphorus 4.80 H Magnesium Direct Bilirubin AST ALT Alkaline Phosphatase Lactate Dehydrogenase Troponin T C-Reactive Protein Total Protein Albumin Prealbumin Triglycerides Cholesterol LDL Cholesterol Direct HDL Cholesterol Urine pH Urine WBC (Auto) Urine Creatinine Urine Total Protein Fluid Total Protein Vancomycin Trough Rheumatoid Factor Complement C4 Miscellaneous Test Crossmatch 10/31/16 10/31/16 11/01/16 11:46 18:34 00:20 WBC RBC Hgb Hct MCV MCH MCHC RDW Plt Count Lymph % (Auto) [place] % (Auto) Lymph # [place] # Baso # Seg Neutrophils % Seg Neuts % (Manual) Lymphocytes % (Manual) Monocytes % (Manual) Eosinophils % (Manual) Basophils % (Manual) Nucleated RBC % Seg Neutrophils # Seg Neutrophils # Man Lymphocytes # (Manual) Monocytes # (Manual) Eosinophils # (Manual) Basophils # (Manual) PT INR Fibrinogen dRVVT Confirm Interp Factor V Activity POC ABG pH POC ABG pCO2 POC ABG pO2 ABG pO2 ABG HCO3 ABG Base Excess ABG Hemoglobin Oxyhemoglobin Sodium Potassium Chloride Carbon Dioxide BUN Creatinine Glucose POC Glucose 159 H 140 H 132 H Lactic Acid Calcium Phosphorus Magnesium Direct Bilirubin AST ALT Alkaline Phosphatase Lactate Dehydrogenase Troponin T C-Reactive Protein Total Protein Albumin Prealbumin Triglycerides Cholesterol LDL Cholesterol Direct HDL Cholesterol Urine pH Urine WBC (Auto) Urine Creatinine Urine Total Protein Fluid Total Protein Vancomycin Trough Rheumatoid Factor Complement C4 Miscellaneous Test Crossmatch 11/01/16 11/01/16 11/01/16 04:55 04:55 06:11 WBC 11.2 H RBC 2.68 L Hgb 7.5 L Hct 23.7 L MCV MCH MCHC RDW 16.1 H Plt Count Lymph % (Auto) [place] % (Auto) 9.8 H Lymph # [place] # 1.1 H Baso # Seg Neutrophils % 70.8 H Seg Neuts % (Manual) Lymphocytes % (Manual) Monocytes % (Manual) Eosinophils % (Manual) Basophils % (Manual) Nucleated RBC % Seg Neutrophils # 7.9 H Seg Neutrophils # Man Lymphocytes # (Manual) Monocytes # (Manual) Eosinophils # (Manual) Basophils # (Manual) PT INR Fibrinogen dRVVT Confirm Interp Factor V Activity POC ABG pH POC ABG pCO2 POC ABG pO2 ABG pO2 ABG HCO3 ABG Base Excess ABG Hemoglobin Oxyhemoglobin Sodium Potassium 3.3 L D Chloride Carbon Dioxide BUN 61 H Creatinine 1.9 H Glucose 114 H POC Glucose 115 H Lactic Acid Calcium Phosphorus 1.80 L D Magnesium Direct Bilirubin AST ALT Alkaline Phosphatase Lactate Dehydrogenase Troponin T C-Reactive Protein Total Protein Albumin Prealbumin Triglycerides Cholesterol LDL Cholesterol Direct HDL Cholesterol Urine pH Urine WBC (Auto) Urine Creatinine Urine Total Protein Fluid Total Protein Vancomycin Trough Rheumatoid Factor Complement C4 Miscellaneous Test Crossmatch 11/01/16 11/01/16 11/01/16 12:29 18:23 23:58 WBC RBC Hgb Hct MCV MCH MCHC RDW Plt Count Lymph % (Auto) [place] % (Auto) Lymph # [place] # Baso # Seg Neutrophils % Seg Neuts % (Manual) Lymphocytes % (Manual) Monocytes % (Manual) Eosinophils % (Manual) Basophils % (Manual) Nucleated RBC % Seg Neutrophils # Seg Neutrophils # Man Lymphocytes # (Manual) Monocytes # (Manual) Eosinophils # (Manual) Basophils # (Manual) PT INR Fibrinogen dRVVT Confirm Interp Factor V Activity POC ABG pH POC ABG pCO2 POC ABG pO2 ABG pO2 ABG HCO3 ABG Base Excess ABG Hemoglobin Oxyhemoglobin Sodium Potassium Chloride Carbon Dioxide BUN Creatinine Glucose POC Glucose 142 H 143 H 128 H Lactic Acid Calcium Phosphorus Magnesium Direct Bilirubin AST ALT Alkaline Phosphatase Lactate Dehydrogenase Troponin T C-Reactive Protein Total Protein Albumin Prealbumin Triglycerides Cholesterol LDL Cholesterol Direct HDL Cholesterol Urine pH Urine WBC (Auto) Urine Creatinine Urine Total Protein Fluid Total Protein Vancomycin Trough Rheumatoid Factor Complement C4 Miscellaneous Test Crossmatch 11/02/16 11/02/16 11/02/16 04:16 05:29 11:58 WBC RBC Hgb Hct MCV MCH MCHC RDW Plt Count Lymph % (Auto) [place] % (Auto) Lymph # [place] # Baso # Seg Neutrophils % Seg Neuts % (Manual) Lymphocytes % (Manual) Monocytes % (Manual) Eosinophils % (Manual) Basophils % (Manual) Nucleated RBC % Seg Neutrophils # Seg Neutrophils # Man Lymphocytes # (Manual) Monocytes # (Manual) Eosinophils # (Manual) Basophils # (Manual) PT INR Fibrinogen dRVVT Confirm Interp Factor V Activity POC ABG pH POC ABG pCO2 POC ABG pO2 ABG pO2 ABG HCO3 ABG Base Excess ABG Hemoglobin Oxyhemoglobin Sodium Potassium 3.1 L Chloride Carbon Dioxide BUN 73 H Creatinine 2.3 H Glucose 112 H POC Glucose 135 H 149 H Lactic Acid Calcium Phosphorus Magnesium Direct Bilirubin AST ALT Alkaline Phosphatase Lactate Dehydrogenase Troponin T C-Reactive Protein Total Protein Albumin Prealbumin Triglycerides Cholesterol LDL Cholesterol Direct HDL Cholesterol Urine pH Urine WBC (Auto) Urine Creatinine Urine Total Protein Fluid Total Protein Vancomycin Trough Rheumatoid Factor Complement C4 Miscellaneous Test Crossmatch 11/02/16 11/02/16 11/03/16 17:42 22:54 06:00 WBC RBC Hgb Hct MCV MCH MCHC RDW Plt Count Lymph % (Auto) [place] % (Auto) Lymph # [place] # Baso # Seg Neutrophils % Seg Neuts % (Manual) Lymphocytes % (Manual) Monocytes % (Manual) Eosinophils % (Manual) Basophils % (Manual) Nucleated RBC % Seg Neutrophils # Seg Neutrophils # Man Lymphocytes # (Manual) Monocytes # (Manual) Eosinophils # (Manual) Basophils # (Manual) PT INR Fibrinogen dRVVT Confirm Interp Factor V Activity POC ABG pH POC ABG pCO2 POC ABG pO2 ABG pO2 ABG HCO3 ABG Base Excess ABG Hemoglobin Oxyhemoglobin Sodium Potassium Chloride 96.7 L Carbon Dioxide BUN 41 H Creatinine 1.5 H Glucose 145 H POC Glucose 182 H 115 H Lactic Acid Calcium Phosphorus 1.60 L D Magnesium 1.50 L Direct Bilirubin AST ALT Alkaline Phosphatase Lactate Dehydrogenase Troponin T C-Reactive Protein Total Protein Albumin Prealbumin Triglycerides Cholesterol LDL Cholesterol Direct HDL Cholesterol Urine pH Urine WBC (Auto) Urine Creatinine Urine Total Protein Fluid Total Protein Vancomycin Trough Rheumatoid Factor Complement C4 Miscellaneous Test Crossmatch 11/03/16 11/03/16 11/03/16 11:53 17:45 23:37 WBC RBC Hgb Hct MCV MCH MCHC RDW Plt Count Lymph % (Auto) [place] % (Auto) Lymph # [place] # Baso # Seg Neutrophils % Seg Neuts % (Manual) Lymphocytes % (Manual) Monocytes % (Manual) Eosinophils % (Manual) Basophils % (Manual) Nucleated RBC % Seg Neutrophils # Seg Neutrophils # Man Lymphocytes # (Manual) Monocytes # (Manual) Eosinophils # (Manual) Basophils # (Manual) PT INR Fibrinogen dRVVT Confirm Interp Factor V Activity POC ABG pH POC ABG pCO2 POC ABG pO2 ABG pO2 ABG HCO3 ABG Base Excess ABG Hemoglobin Oxyhemoglobin Sodium Potassium Chloride Carbon Dioxide BUN Creatinine Glucose POC Glucose 131 H 134 H 113 H Lactic Acid Calcium Phosphorus Magnesium Direct Bilirubin AST ALT Alkaline Phosphatase Lactate Dehydrogenase Troponin T C-Reactive Protein Total Protein Albumin Prealbumin Triglycerides Cholesterol LDL Cholesterol Direct HDL Cholesterol Urine pH Urine WBC (Auto) Urine Creatinine Urine Total Protein Fluid Total Protein Vancomycin Trough Rheumatoid Factor Complement C4 Miscellaneous Test Crossmatch 11/04/16 11/04/16 11/04/16 05:41 06:00 12:10 WBC RBC Hgb Hct MCV MCH MCHC RDW Plt Count Lymph % (Auto) [place] % (Auto) Lymph # [place] # Baso # Seg Neutrophils % Seg Neuts % (Manual) Lymphocytes % (Manual) Monocytes % (Manual) Eosinophils % (Manual) Basophils % (Manual) Nucleated RBC % Seg Neutrophils # Seg Neutrophils # Man Lymphocytes # (Manual) Monocytes # (Manual) Eosinophils # (Manual) Basophils # (Manual) PT INR Fibrinogen dRVVT Confirm Interp Factor V Activity POC ABG pH POC ABG pCO2 POC ABG pO2 ABG pO2 ABG HCO3 ABG Base Excess ABG Hemoglobin Oxyhemoglobin Sodium Potassium Chloride 96.7 L Carbon Dioxide BUN 52 H Creatinine 1.9 H Glucose 126 H POC Glucose 137 H 191 H Lactic Acid Calcium Phosphorus Magnesium Direct Bilirubin AST ALT Alkaline Phosphatase Lactate Dehydrogenase Troponin T C-Reactive Protein Total Protein Albumin Prealbumin Triglycerides Cholesterol LDL Cholesterol Direct HDL Cholesterol Urine pH Urine WBC (Auto) Urine Creatinine Urine Total Protein Fluid Total Protein Vancomycin Trough Rheumatoid Factor Complement C4 Miscellaneous Test Crossmatch 11/04/16 11/05/16 11/05/16 22:57 03:10 05:10 WBC RBC Hgb Hct MCV MCH MCHC RDW Plt Count Lymph % (Auto) [place] % (Auto) Lymph # [place] # Baso # Seg Neutrophils % Seg Neuts % (Manual) Lymphocytes % (Manual) Monocytes % (Manual) Eosinophils % (Manual) Basophils % (Manual) Nucleated RBC % Seg Neutrophils # Seg Neutrophils # Man Lymphocytes # (Manual) Monocytes # (Manual) Eosinophils # (Manual) Basophils # (Manual) PT INR Fibrinogen dRVVT Confirm Interp Factor V Activity POC ABG pH POC ABG pCO2 POC ABG pO2 ABG pO2 ABG HCO3 ABG Base Excess ABG Hemoglobin Oxyhemoglobin Sodium 136 L Potassium Chloride 97.2 L Carbon Dioxide BUN 32 H Creatinine 1.3 H Glucose 123 H POC Glucose 125 H 108 H Lactic Acid Calcium 7.8 L Phosphorus Magnesium Direct Bilirubin AST ALT Alkaline Phosphatase Lactate Dehydrogenase Troponin T C-Reactive Protein Total Protein Albumin Prealbumin Triglycerides Cholesterol LDL Cholesterol Direct HDL Cholesterol Urine pH Urine WBC (Auto) Urine Creatinine Urine Total Protein Fluid Total Protein Vancomycin Trough Rheumatoid Factor Complement C4 Miscellaneous Test Crossmatch 11/05/16 11/05/16 11/05/16 12:23 13:09 13:25 WBC RBC Hgb Hct MCV MCH MCHC RDW Plt Count Lymph % (Auto) [place] % (Auto) Lymph # [place] # Baso # Seg Neutrophils % Seg Neuts % (Manual) Lymphocytes % (Manual) Monocytes % (Manual) Eosinophils % (Manual) Basophils % (Manual) Nucleated RBC % Seg Neutrophils # Seg Neutrophils # Man Lymphocytes # (Manual) Monocytes # (Manual) Eosinophils # (Manual) Basophils # (Manual) PT INR Fibrinogen dRVVT Confirm Interp Factor V Activity POC ABG pH POC ABG pCO2 POC ABG pO2 ABG pO2 ABG HCO3 ABG Base Excess ABG Hemoglobin Oxyhemoglobin Sodium Potassium Chloride Carbon Dioxide BUN Creatinine Glucose POC Glucose 124 H Lactic Acid Calcium Phosphorus Magnesium Direct Bilirubin AST ALT Alkaline Phosphatase Lactate Dehydrogenase Troponin T C-Reactive Protein 11.40 H Total Protein Albumin Prealbumin Triglycerides Cholesterol LDL Cholesterol Direct HDL Cholesterol Urine pH 9.0 H Urine WBC (Auto) Urine Creatinine Urine Total Protein Fluid Total Protein Vancomycin Trough Rheumatoid Factor Complement C4 Miscellaneous Test Crossmatch 11/05/16 11/05/1611/05/17 13:25 17:54 23:42 WBC RBC Hgb Hct MCV MCH MCHC RDW Plt Count Lymph % (Auto) [place] % (Auto) Lymph # [place] # Baso # Seg Neutrophils % Seg Neuts % (Manual) Lymphocytes % (Manual) Monocytes % (Manual) Eosinophils % (Manual) Basophils % (Manual) Nucleated RBC % Seg Neutrophils # Seg Neutrophils # Man Lymphocytes # (Manual) Monocytes # (Manual) Eosinophils # (Manual) Basophils # (Manual) PT INR Fibrinogen dRVVT Confirm Interp Factor V Activity POC ABG pH POC ABG pCO2 POC ABG pO2 ABG pO2 ABG HCO3 ABG Base Excess ABG Hemoglobin Oxyhemoglobin Sodium Potassium Chloride Carbon Dioxide BUN Creatinine Glucose POC Glucose 114 H 134 H Lactic Acid Calcium Phosphorus Magnesium Direct Bilirubin AST ALT Alkaline Phosphatase Lactate Dehydrogenase Troponin T C-Reactive Protein Total Protein Albumin Prealbumin Triglycerides Cholesterol LDL Cholesterol Direct HDL Cholesterol Urine pH Urine WBC (Auto) Urine Creatinine Urine Total Protein Fluid Total Protein Vancomycin Trough Rheumatoid Factor Complement C4 Miscellaneous Test Flexitest 1 H Crossmatch 11/06/16 11/06/16 11/06/16 04:56 06:25 06:25 WBC RBC 2.50 L Hgb 7.3 L Hct 22.5 L MCV MCH MCHC RDW 16.9 H Plt Count Lymph % (Auto) [place] % (Auto) 10.5 H Lymph # [place] # 1.1 H Baso # Seg Neutrophils % Seg Neuts % (Manual) Lymphocytes % (Manual) Monocytes % (Manual) Eosinophils % (Manual) Basophils % (Manual) Nucleated RBC % Seg Neutrophils # Seg Neutrophils # Man Lymphocytes # (Manual) Monocytes # (Manual) Eosinophils # (Manual) Basophils # (Manual) PT INR Fibrinogen dRVVT Confirm Interp Factor V Activity POC ABG pH POC ABG pCO2 POC ABG pO2 ABG pO2 ABG HCO3 ABG Base Excess ABG Hemoglobin Oxyhemoglobin Sodium Potassium 5.1 H Chloride 95.9 L Carbon Dioxide BUN 52 H Creatinine 1.8 H Glucose 117 H POC Glucose 120 H Lactic Acid Calcium Phosphorus Magnesium Direct Bilirubin AST 103 H ALT 77 H Alkaline Phosphatase 285 H Lactate Dehydrogenase Troponin T C-Reactive Protein Total Protein 6.2 L Albumin 1.8 L Prealbumin 0.180 L Triglycerides Cholesterol LDL Cholesterol Direct HDL Cholesterol Urine pH Urine WBC (Auto) Urine Creatinine Urine Total Protein Fluid Total Protein Vancomycin Trough Rheumatoid Factor Complement C4 Miscellaneous Test Crossmatch 11/06/16 11/06/16 11/06/16 11:56 17:14 23:52 WBC RBC Hgb Hct MCV MCH MCHC RDW Plt Count Lymph % (Auto) [place] % (Auto) Lymph # [place] # Baso # Seg Neutrophils % Seg Neuts % (Manual) Lymphocytes % (Manual) Monocytes % (Manual) Eosinophils % (Manual) Basophils % (Manual) Nucleated RBC % Seg Neutrophils # Seg Neutrophils # Man Lymphocytes # (Manual) Monocytes # (Manual) Eosinophils # (Manual) Basophils # (Manual) PT INR Fibrinogen dRVVT Confirm Interp Factor V Activity POC ABG pH POC ABG pCO2 POC ABG pO2 ABG pO2 ABG HCO3 ABG Base Excess ABG Hemoglobin Oxyhemoglobin Sodium Potassium Chloride Carbon Dioxide BUN Creatinine Glucose POC Glucose 141 H 125 H 130 H Lactic Acid Calcium Phosphorus Magnesium Direct Bilirubin AST ALT Alkaline Phosphatase Lactate Dehydrogenase Troponin T C-Reactive Protein Total Protein Albumin Prealbumin Triglycerides Cholesterol LDL Cholesterol Direct HDL Cholesterol Urine pH Urine WBC (Auto) Urine Creatinine Urine Total Protein Fluid Total Protein Vancomycin Trough Rheumatoid Factor Complement C4 Miscellaneous Test Crossmatch 11/07/16 11/07/16 11/07/16 06:30 06:30 09:37 WBC RBC 2.18 L Hgb 6.3 L Hct 19.7 L* MCV MCH MCHC RDW 16.8 H Plt Count Lymph % (Auto) [place] % (Auto) 10.0 H Lymph # [place] # 1.0 H Baso # Seg Neutrophils % Seg Neuts % (Manual) Lymphocytes % (Manual) Monocytes % (Manual) Eosinophils % (Manual) Basophils % (Manual) Nucleated RBC % Seg Neutrophils # Seg Neutrophils # Man Lymphocytes # (Manual) Monocytes # (Manual) Eosinophils # (Manual) Basophils # (Manual) PT INR Fibrinogen dRVVT Confirm Interp Factor V Activity POC ABG pH POC ABG pCO2 POC ABG pO2 ABG pO2 ABG HCO3 ABG Base Excess ABG Hemoglobin Oxyhemoglobin Sodium 135 L Potassium Chloride 95.6 L Carbon Dioxide BUN 70 H Creatinine 2.0 H Glucose 126 H POC Glucose Lactic Acid Calcium Phosphorus Magnesium Direct Bilirubin AST ALT Alkaline Phosphatase Lactate Dehydrogenase Troponin T C-Reactive Protein Total Protein Albumin Prealbumin Triglycerides Cholesterol LDL Cholesterol Direct HDL Cholesterol Urine pH Urine WBC (Auto) Urine Creatinine Urine Total Protein Fluid Total Protein Vancomycin Trough Rheumatoid Factor Complement C4 Miscellaneous Test Crossmatch See Detail 11/07/16 11/07/16 11/07/16 12:52 18:51 21:26 WBC RBC Hgb Hct MCV MCH MCHC RDW Plt Count Lymph % (Auto) [place] % (Auto) Lymph # [place] # Baso # Seg Neutrophils % Seg Neuts % (Manual) Lymphocytes % (Manual) Monocytes % (Manual) Eosinophils % (Manual) Basophils % (Manual) Nucleated RBC % Seg Neutrophils # Seg Neutrophils # Man Lymphocytes # (Manual) Monocytes # (Manual) Eosinophils # (Manual) Basophils # (Manual) PT INR Fibrinogen dRVVT Confirm Interp Factor V Activity POC ABG pH 7.523 H POC ABG pCO2 34.6 L POC ABG pO2 53 L ABG pO2 ABG HCO3 ABG Base Excess ABG Hemoglobin Oxyhemoglobin Sodium Potassium Chloride Carbon Dioxide BUN Creatinine Glucose POC Glucose 142 H 155 H Lactic Acid Calcium Phosphorus Magnesium Direct Bilirubin AST ALT Alkaline Phosphatase Lactate Dehydrogenase Troponin T C-Reactive Protein Total Protein Albumin Prealbumin Triglycerides Cholesterol LDL Cholesterol Direct HDL Cholesterol Urine pH Urine WBC (Auto) Urine Creatinine Urine Total Protein Fluid Total Protein Vancomycin Trough Rheumatoid Factor Complement C4 Miscellaneous Test Crossmatch 11/07/16 11/08/16 11/08/16 21:34 13:03 23:37 WBC RBC 2.63 L Hgb 7.7 L Hct 22.7 L MCV MCH MCHC RDW 17.0 H Plt Count Lymph % (Auto) [place] % (Auto) Lymph # [place] # Baso # Seg Neutrophils % Seg Neuts % (Manual) Lymphocytes % (Manual) Monocytes % (Manual) Eosinophils % (Manual) Basophils % (Manual) Nucleated RBC % Seg Neutrophils # Seg Neutrophils # Man Lymphocytes # (Manual) Monocytes # (Manual) Eosinophils # (Manual) Basophils # (Manual) PT INR Fibrinogen dRVVT Confirm Interp Factor V Activity POC ABG pH 7.478 H POC ABG pCO2 34.0 L POC ABG pO2 50 L ABG pO2 ABG HCO3 ABG Base Excess ABG Hemoglobin Oxyhemoglobin Sodium Potassium Chloride Carbon Dioxide BUN Creatinine Glucose POC Glucose 113 H Lactic Acid Calcium Phosphorus Magnesium Direct Bilirubin AST ALT Alkaline Phosphatase Lactate Dehydrogenase Troponin T C-Reactive Protein Total Protein Albumin Prealbumin Triglycerides Cholesterol LDL Cholesterol Direct HDL Cholesterol Urine pH Urine WBC (Auto) Urine Creatinine Urine Total Protein Fluid Total Protein Vancomycin Trough Rheumatoid Factor Complement C4 Miscellaneous Test Crossmatch 11/09/16 11/09/16 11/09/16 04:35 10:15 18:21 WBC RBC 2.68 L Hgb 7.8 L Hct 23.3 L MCV MCH MCHC RDW 17.0 H Plt Count Lymph % (Auto) [place] % (Auto) 12.1 H Lymph # [place] # 1.1 H Baso # Seg Neutrophils % Seg Neuts % (Manual) Lymphocytes % (Manual) Monocytes % (Manual) Eosinophils % (Manual) Basophils % (Manual) Nucleated RBC % Seg Neutrophils # Seg Neutrophils # Man Lymphocytes # (Manual) Monocytes # (Manual) Eosinophils # (Manual) Basophils # (Manual) PT INR Fibrinogen dRVVT Confirm Interp Factor V Activity POC ABG pH POC ABG pCO2 POC ABG pO2 ABG pO2 ABG HCO3 ABG Base Excess ABG Hemoglobin Oxyhemoglobin Sodium Potassium Chloride Carbon Dioxide BUN 51 H Creatinine 1.8 H Glucose POC Glucose 60 L Lactic Acid Calcium 8.3 L Phosphorus Magnesium Direct Bilirubin AST ALT Alkaline Phosphatase Lactate Dehydrogenase Troponin T C-Reactive Protein Total Protein Albumin Prealbumin Triglycerides Cholesterol LDL Cholesterol Direct HDL Cholesterol Urine pH Urine WBC (Auto) Urine Creatinine Urine Total Protein Fluid Total Protein Vancomycin Trough Rheumatoid Factor Complement C4 Miscellaneous Test Crossmatch 11/09/16 11/10/16 11/10/16 18:55 07:00 11:51 WBC RBC Hgb Hct MCV MCH MCHC RDW Plt Count Lymph % (Auto) [place] % (Auto) Lymph # [place] # Baso # Seg Neutrophils % Seg Neuts % (Manual) Lymphocytes % (Manual) Monocytes % (Manual) Eosinophils % (Manual) Basophils % (Manual) Nucleated RBC % Seg Neutrophils # Seg Neutrophils # Man Lymphocytes # (Manual) Monocytes # (Manual) Eosinophils # (Manual) Basophils # (Manual) PT INR Fibrinogen dRVVT Confirm Interp Factor V Activity POC ABG pH POC ABG pCO2 POC ABG pO2 ABG pO2 ABG HCO3 ABG Base Excess ABG Hemoglobin Oxyhemoglobin Sodium Potassium 3.0 L D Chloride 97.4 L Carbon Dioxide BUN 28 H Creatinine 1.3 H Glucose POC Glucose 68 L 120 H Lactic Acid Calcium 7.8 L Phosphorus Magnesium Direct Bilirubin AST ALT Alkaline Phosphatase Lactate Dehydrogenase Troponin T C-Reactive Protein Total Protein Albumin Prealbumin Triglycerides Cholesterol LDL Cholesterol Direct HDL Cholesterol Urine pH Urine WBC (Auto) Urine Creatinine Urine Total Protein Fluid Total Protein Vancomycin Trough Rheumatoid Factor Complement C4 Miscellaneous Test Crossmatch 11/10/16 11/11/16 11/11/16 14:20 06:59 06:59 WBC RBC 2.81 L Hgb 8.1 L Hct 24.4 L MCV MCH MCHC RDW 16.4 H Plt Count Lymph % (Auto) [place] % (Auto) 10.8 H Lymph # [place] # 1.0 H Baso # Seg Neutrophils % Seg Neuts % (Manual) Lymphocytes % (Manual) Monocytes % (Manual) Eosinophils % (Manual) Basophils % (Manual) Nucleated RBC % Seg Neutrophils # Seg Neutrophils # Man Lymphocytes # (Manual) Monocytes # (Manual) Eosinophils # (Manual) Basophils # (Manual) PT INR Fibrinogen dRVVT Confirm Interp Factor V Activity POC ABG pH POC ABG pCO2 POC ABG pO2 ABG pO2 ABG HCO3 ABG Base Excess ABG Hemoglobin Oxyhemoglobin Sodium Potassium Chloride Carbon Dioxide BUN Creatinine Glucose POC Glucose Lactic Acid Calcium Phosphorus Magnesium Direct Bilirubin AST ALT Alkaline Phosphatase Lactate Dehydrogenase 196 H Troponin T C-Reactive Protein Total Protein 6.1 L Albumin Prealbumin Triglycerides Cholesterol LDL Cholesterol Direct HDL Cholesterol Urine pH Urine WBC (Auto) Urine Creatinine Urine Total Protein Fluid Total Protein < 3.0 L Vancomycin Trough Rheumatoid Factor Complement C4 Miscellaneous Test Crossmatch 11/11/16 11/11/16 11/12/16 06:59 09:50 04:00 WBC RBC Hgb Hct MCV MCH MCHC RDW Plt Count Lymph % (Auto) [place] % (Auto) Lymph # [place] # Baso # Seg Neutrophils % Seg Neuts % (Manual) Lymphocytes % (Manual) Monocytes % (Manual) Eosinophils % (Manual) Basophils % (Manual) Nucleated RBC % Seg Neutrophils # Seg Neutrophils # Man Lymphocytes # (Manual) Monocytes # (Manual) Eosinophils # (Manual) Basophils # (Manual) PT INR 1.18 H Fibrinogen dRVVT Confirm Interp Factor V Activity POC ABG pH POC ABG pCO2 POC ABG pO2 ABG pO2 ABG HCO3 ABG Base Excess ABG Hemoglobin Oxyhemoglobin Sodium 136 L 133 L Potassium Chloride 96.1 L 94.8 L Carbon Dioxide 21 L BUN 37 H 42 H Creatinine 1.8 H 2.0 H Glucose POC Glucose Lactic Acid Calcium Phosphorus Magnesium Direct Bilirubin AST ALT Alkaline Phosphatase Lactate Dehydrogenase Troponin T C-Reactive Protein Total Protein Albumin Prealbumin Triglycerides Cholesterol LDL Cholesterol Direct HDL Cholesterol Urine pH Urine WBC (Auto) Urine Creatinine Urine Total Protein Fluid Total Protein Vancomycin Trough Rheumatoid Factor Complement C4 Miscellaneous Test Crossmatch 11/12/16 11/12/16 11/13/16 04:00 23:55 05:53 WBC RBC Hgb 8.9 L Hct 27.2 L MCV MCH MCHC RDW Plt Count Lymph % (Auto) [place] % (Auto) Lymph # [place] # Baso # Seg Neutrophils % Seg Neuts % (Manual) Lymphocytes % (Manual) Monocytes % (Manual) Eosinophils % (Manual) Basophils % (Manual) Nucleated RBC % Seg Neutrophils # Seg Neutrophils # Man Lymphocytes # (Manual) Monocytes # (Manual) Eosinophils # (Manual) Basophils # (Manual) PT INR Fibrinogen dRVVT Confirm Interp Factor V Activity POC ABG pH POC ABG pCO2 POC ABG pO2 ABG pO2 ABG HCO3 ABG Base Excess ABG Hemoglobin Oxyhemoglobin Sodium Potassium Chloride Carbon Dioxide BUN Creatinine Glucose POC Glucose 132 H 120 H Lactic Acid Calcium Phosphorus Magnesium Direct Bilirubin AST ALT Alkaline Phosphatase Lactate Dehydrogenase Troponin T C-Reactive Protein Total Protein Albumin Prealbumin Triglycerides Cholesterol LDL Cholesterol Direct HDL Cholesterol Urine pH Urine WBC (Auto) Urine Creatinine Urine Total Protein Fluid Total Protein Vancomycin Trough Rheumatoid Factor Complement C4 Miscellaneous Test Crossmatch 11/13/16 11/13/16 11/13/16 11:43 17:09 23:41 WBC RBC Hgb Hct MCV MCH MCHC RDW Plt Count Lymph % (Auto) [place] % (Auto) Lymph # [place] # Baso # Seg Neutrophils % Seg Neuts % (Manual) Lymphocytes % (Manual) Monocytes % (Manual) Eosinophils % (Manual) Basophils % (Manual) Nucleated RBC % Seg Neutrophils # Seg Neutrophils # Man Lymphocytes # (Manual) Monocytes # (Manual) Eosinophils # (Manual) Basophils # (Manual) PT INR Fibrinogen dRVVT Confirm Interp Factor V Activity POC ABG pH POC ABG pCO2 POC ABG pO2 ABG pO2 ABG HCO3 ABG Base Excess ABG Hemoglobin Oxyhemoglobin Sodium Potassium Chloride Carbon Dioxide BUN Creatinine Glucose POC Glucose 114 H 113 H 108 H Lactic Acid Calcium Phosphorus Magnesium Direct Bilirubin AST ALT Alkaline Phosphatase Lactate Dehydrogenase Troponin T C-Reactive Protein Total Protein Albumin Prealbumin Triglycerides Cholesterol LDL Cholesterol Direct HDL Cholesterol Urine pH Urine WBC (Auto) Urine Creatinine Urine Total Protein Fluid Total Protein Vancomycin Trough Rheumatoid Factor Complement C4 Miscellaneous Test Crossmatch 11/13/16 11/15/16 11/15/16 Unknown 00:37 03:30 WBC 11.2 H RBC 2.72 L Hgb 7.6 L Hct 23.4 L MCV MCH MCHC RDW 16.5 H Plt Count Lymph % (Auto) [place] % (Auto) Lymph # [place] # Baso # Seg Neutrophils % Seg Neuts % (Manual) Lymphocytes % (Manual) Monocytes % (Manual) Eosinophils % (Manual) Basophils % (Manual) Nucleated RBC % Seg Neutrophils # Seg Neutrophils # Man Lymphocytes # (Manual) Monocytes # (Manual) Eosinophils # (Manual) Basophils # (Manual) PT INR Fibrinogen dRVVT Confirm Interp Factor V Activity POC ABG pH POC ABG pCO2 POC ABG pO2 ABG pO2 ABG HCO3 ABG Base Excess ABG Hemoglobin Oxyhemoglobin Sodium 135 L Potassium Chloride 95.2 L Carbon Dioxide BUN 52 H Creatinine 2.2 H Glucose POC Glucose 108 H Lactic Acid Calcium Phosphorus Magnesium Direct Bilirubin AST ALT Alkaline Phosphatase Lactate Dehydrogenase Troponin T C-Reactive Protein Total Protein Albumin Prealbumin Triglycerides Cholesterol LDL Cholesterol Direct HDL Cholesterol Urine pH Urine WBC (Auto) Urine Creatinine Urine Total Protein Fluid Total Protein Vancomycin Trough Rheumatoid Factor Complement C4 Miscellaneous Test Crossmatch 11/15/16 11/15/16 11/15/16 03:30 05:04 11:50 WBC RBC Hgb Hct MCV MCH MCHC RDW Plt Count Lymph % (Auto) [place] % (Auto) Lymph # [place] # Baso # Seg Neutrophils % Seg Neuts % (Manual) Lymphocytes % (Manual) Monocytes % (Manual) Eosinophils % (Manual) Basophils % (Manual) Nucleated RBC % Seg Neutrophils # Seg Neutrophils # Man Lymphocytes # (Manual) Monocytes # (Manual) Eosinophils # (Manual) Basophils # (Manual) PT INR Fibrinogen dRVVT Confirm Interp Factor V Activity POC ABG pH POC ABG pCO2 POC ABG pO2 ABG pO2 ABG HCO3 ABG Base Excess ABG Hemoglobin Oxyhemoglobin Sodium Potassium 3.4 L Chloride Carbon Dioxide BUN 25 H Creatinine 1.5 H Glucose 103 H POC Glucose 121 H 144 H Lactic Acid Calcium Phosphorus Magnesium Direct Bilirubin AST ALT Alkaline Phosphatase Lactate Dehydrogenase Troponin T C-Reactive Protein Total Protein Albumin Prealbumin Triglycerides Cholesterol LDL Cholesterol Direct HDL Cholesterol Urine pH Urine WBC (Auto) Urine Creatinine Urine Total Protein Fluid Total Protein Vancomycin Trough Rheumatoid Factor Complement C4 Miscellaneous Test Crossmatch 11/15/16 11/15/16 11/16/16 21:28 23:20 11:44 WBC RBC Hgb Hct MCV MCH MCHC RDW Plt Count Lymph % (Auto) [place] % (Auto) Lymph # [place] # Baso # Seg Neutrophils % Seg Neuts % (Manual) Lymphocytes % (Manual) Monocytes % (Manual) Eosinophils % (Manual) Basophils % (Manual) Nucleated RBC % Seg Neutrophils # Seg Neutrophils # Man Lymphocytes # (Manual) Monocytes # (Manual) Eosinophils # (Manual) Basophils # (Manual) PT INR Fibrinogen dRVVT Confirm Interp Factor V Activity POC ABG pH 7.462 H POC ABG pCO2 POC ABG pO2 71 L ABG pO2 ABG HCO3 ABG Base Excess ABG Hemoglobin Oxyhemoglobin Sodium Potassium Chloride Carbon Dioxide BUN Creatinine Glucose POC Glucose 116 H 133 H Lactic Acid Calcium Phosphorus Magnesium Direct Bilirubin AST ALT Alkaline Phosphatase Lactate Dehydrogenase Troponin T C-Reactive Protein Total Protein Albumin Prealbumin Triglycerides Cholesterol LDL Cholesterol Direct HDL Cholesterol Urine pH Urine WBC (Auto) Urine Creatinine Urine Total Protein Fluid Total Protein Vancomycin Trough Rheumatoid Factor Complement C4 Miscellaneous Test Crossmatch 11/16/16 11/16/16 11/16/16 12:20 17:05 23:35 WBC 11.7 H RBC 2.73 L Hgb 7.6 L Hct 23.7 L MCV MCH MCHC RDW 16.6 H Plt Count Lymph % (Auto) [place] % (Auto) Lymph # [place] # Baso # Seg Neutrophils % Seg Neuts % (Manual) Lymphocytes % (Manual) Monocytes % (Manual) Eosinophils % (Manual) Basophils % (Manual) Nucleated RBC % Seg Neutrophils # Seg Neutrophils # Man Lymphocytes # (Manual) Monocytes # (Manual) Eosinophils # (Manual) Basophils # (Manual) PT INR Fibrinogen dRVVT Confirm Interp Factor V Activity POC ABG pH POC ABG pCO2 POC ABG pO2 ABG pO2 ABG HCO3 ABG Base Excess ABG Hemoglobin Oxyhemoglobin Sodium Potassium Chloride Carbon Dioxide BUN Creatinine Glucose POC Glucose 154 H 125 H Lactic Acid Calcium Phosphorus Magnesium Direct Bilirubin AST ALT Alkaline Phosphatase Lactate Dehydrogenase Troponin T C-Reactive Protein Total Protein Albumin Prealbumin Triglycerides Cholesterol LDL Cholesterol Direct HDL Cholesterol Urine pH Urine WBC (Auto) Urine Creatinine Urine Total Protein Fluid Total Protein Vancomycin Trough Rheumatoid Factor Complement C4 Miscellaneous Test Crossmatch 11/17/16 11/17/16 11/17/16 03:20 03:20 03:20 WBC RBC 2.55 L Hgb 7.3 L Hct 21.9 L MCV MCH MCHC RDW 16.6 H Plt Count Lymph % (Auto) [place] % (Auto) 11.5 H Lymph # [place] # 1.1 H Baso # Seg Neutrophils % Seg Neuts % (Manual) Lymphocytes % (Manual) Monocytes % (Manual) Eosinophils % (Manual) Basophils % (Manual) Nucleated RBC % Seg Neutrophils # Seg Neutrophils # Man Lymphocytes # (Manual) Monocytes # (Manual) Eosinophils # (Manual) Basophils # (Manual) PT 16.8 H INR 1.37 H Fibrinogen dRVVT Confirm Interp Factor V Activity POC ABG pH POC ABG pCO2 POC ABG pO2 ABG pO2 ABG HCO3 ABG Base Excess ABG Hemoglobin Oxyhemoglobin Sodium Potassium 3.5 L Chloride Carbon Dioxide BUN 21 H Creatinine Glucose POC Glucose Lactic Acid Calcium 7.9 L Phosphorus Magnesium Direct Bilirubin AST ALT Alkaline Phosphatase Lactate Dehydrogenase Troponin T C-Reactive Protein Total Protein Albumin Prealbumin Triglycerides Cholesterol LDL Cholesterol Direct HDL Cholesterol Urine pH Urine WBC (Auto) Urine Creatinine Urine Total Protein Fluid Total Protein Vancomycin Trough Rheumatoid Factor Complement C4 Miscellaneous Test Crossmatch 11/17/16 11/17/16 11/17/16 06:34 11:21 21:22 WBC RBC Hgb Hct MCV MCH MCHC RDW Plt Count Lymph % (Auto) [place] % (Auto) Lymph # [place] # Baso # Seg Neutrophils % Seg Neuts % (Manual) Lymphocytes % (Manual) Monocytes % (Manual) Eosinophils % (Manual) Basophils % (Manual) Nucleated RBC % Seg Neutrophils # Seg Neutrophils # Man Lymphocytes # (Manual) Monocytes # (Manual) Eosinophils # (Manual) Basophils # (Manual) PT INR Fibrinogen dRVVT Confirm Interp Factor V Activity POC ABG pH 7.467 H POC ABG pCO2 POC ABG pO2 73 L ABG pO2 ABG HCO3 ABG Base Excess ABG Hemoglobin Oxyhemoglobin Sodium Potassium Chloride Carbon Dioxide BUN Creatinine Glucose POC Glucose 121 H 119 H Lactic Acid Calcium Phosphorus Magnesium Direct Bilirubin AST ALT Alkaline Phosphatase Lactate Dehydrogenase Troponin T C-Reactive Protein Total Protein Albumin Prealbumin Triglycerides Cholesterol LDL Cholesterol Direct HDL Cholesterol Urine pH Urine WBC (Auto) Urine Creatinine Urine Total Protein Fluid Total Protein Vancomycin Trough Rheumatoid Factor Complement C4 Miscellaneous Test Crossmatch 11/18/16 11/18/16 11/19/16 12:16 17:19 00:00 WBC RBC Hgb Hct MCV MCH MCHC RDW Plt Count Lymph % (Auto) [place] % (Auto) Lymph # [place] # Baso # Seg Neutrophils % Seg Neuts % (Manual) Lymphocytes % (Manual) Monocytes % (Manual) Eosinophils % (Manual) Basophils % (Manual) Nucleated RBC % Seg Neutrophils # Seg Neutrophils # Man Lymphocytes # (Manual) Monocytes # (Manual) Eosinophils # (Manual) Basophils # (Manual) PT INR Fibrinogen dRVVT Confirm Interp Factor V Activity POC ABG pH POC ABG pCO2 POC ABG pO2 ABG pO2 ABG HCO3 ABG Base Excess ABG Hemoglobin Oxyhemoglobin Sodium Potassium Chloride Carbon Dioxide BUN Creatinine Glucose POC Glucose 124 H 162 H 139 H Lactic Acid Calcium Phosphorus Magnesium Direct Bilirubin AST ALT Alkaline Phosphatase Lactate Dehydrogenase Troponin T C-Reactive Protein Total Protein Albumin Prealbumin Triglycerides Cholesterol LDL Cholesterol Direct HDL Cholesterol Urine pH Urine WBC (Auto) Urine Creatinine Urine Total Protein Fluid Total Protein Vancomycin Trough Rheumatoid Factor Complement C4 Miscellaneous Test Crossmatch 11/19/16 11/19/16 11/20/16 05:00 12:43 00:40 WBC RBC Hgb Hct MCV MCH MCHC RDW Plt Count Lymph % (Auto) [place] % (Auto) Lymph # [place] # Baso # Seg Neutrophils % Seg Neuts % (Manual) Lymphocytes % (Manual) Monocytes % (Manual) Eosinophils % (Manual) Basophils % (Manual) Nucleated RBC % Seg Neutrophils # Seg Neutrophils # Man Lymphocytes # (Manual) Monocytes # (Manual) Eosinophils # (Manual) Basophils # (Manual) PT INR Fibrinogen dRVVT Confirm Interp Factor V Activity POC ABG pH POC ABG pCO2 POC ABG pO2 ABG pO2 ABG HCO3 ABG Base Excess ABG Hemoglobin Oxyhemoglobin Sodium Potassium Chloride Carbon Dioxide BUN Creatinine Glucose POC Glucose 110 H 125 H 136 H Lactic Acid Calcium Phosphorus Magnesium Direct Bilirubin AST ALT Alkaline Phosphatase Lactate Dehydrogenase Troponin T C-Reactive Protein Total Protein Albumin Prealbumin Triglycerides Cholesterol LDL Cholesterol Direct HDL Cholesterol Urine pH Urine WBC (Auto) Urine Creatinine Urine Total Protein Fluid Total Protein Vancomycin Trough Rheumatoid Factor Complement C4 Miscellaneous Test Crossmatch 11/20/16 11/20/16 11/20/16 05:00 05:00 05:51 WBC 13.1 H RBC 2.74 L Hgb 7.7 L Hct 23.6 L MCV MCH MCHC RDW 16.9 H Plt Count Lymph % (Auto) [place] % (Auto) 10.8 H Lymph # [place] # 1.4 H Baso # Seg Neutrophils % Seg Neuts % (Manual) Lymphocytes % (Manual) Monocytes % (Manual) Eosinophils % (Manual) Basophils % (Manual) Nucleated RBC % Seg Neutrophils # 7.9 H Seg Neutrophils # Man Lymphocytes # (Manual) Monocytes # (Manual) Eosinophils # (Manual) Basophils # (Manual) PT INR Fibrinogen dRVVT Confirm Interp Factor V Activity POC ABG pH POC ABG pCO2 POC ABG pO2 ABG pO2 ABG HCO3 ABG Base Excess ABG Hemoglobin Oxyhemoglobin Sodium Potassium Chloride Carbon Dioxide BUN 31 H Creatinine 1.8 H Glucose 129 H POC Glucose 133 H Lactic Acid Calcium Phosphorus Magnesium Direct Bilirubin AST ALT Alkaline Phosphatase Lactate Dehydrogenase Troponin T C-Reactive Protein Total Protein Albumin Prealbumin Triglycerides Cholesterol LDL Cholesterol Direct HDL Cholesterol Urine pH Urine WBC (Auto) Urine Creatinine Urine Total Protein Fluid Total Protein Vancomycin Trough Rheumatoid Factor Complement C4 Miscellaneous Test Crossmatch 11/20/16 11/20/16 11/21/16 12:40 18:10 01:20 WBC RBC Hgb Hct MCV MCH MCHC RDW Plt Count Lymph % (Auto) [place] % (Auto) Lymph # [place] # Baso # Seg Neutrophils % Seg Neuts % (Manual) Lymphocytes % (Manual) Monocytes % (Manual) Eosinophils % (Manual) Basophils % (Manual) Nucleated RBC % Seg Neutrophils # Seg Neutrophils # Man Lymphocytes # (Manual) Monocytes # (Manual) Eosinophils # (Manual) Basophils # (Manual) PT INR Fibrinogen dRVVT Confirm Interp Factor V Activity POC ABG pH POC ABG pCO2 POC ABG pO2 ABG pO2 ABG HCO3 ABG Base Excess ABG Hemoglobin Oxyhemoglobin Sodium Potassium Chloride Carbon Dioxide BUN Creatinine Glucose POC Glucose 134 H 138 H 136 H Lactic Acid Calcium Phosphorus Magnesium Direct Bilirubin AST ALT Alkaline Phosphatase Lactate Dehydrogenase Troponin T C-Reactive Protein Total Protein Albumin Prealbumin Triglycerides Cholesterol LDL Cholesterol Direct HDL Cholesterol Urine pH Urine WBC (Auto) Urine Creatinine Urine Total Protein Fluid Total Protein Vancomycin Trough Rheumatoid Factor Complement C4 Miscellaneous Test Crossmatch 11/21/16 11/21/16 11/21/16 07:04 07:45 07:45 WBC 22.0 H RBC 2.91 L Hgb 8.2 L Hct 25.4 L MCV MCH MCHC RDW 17.1 H Plt Count Lymph % (Auto) [place] % (Auto) Lymph # [place] # Baso # Seg Neutrophils % Seg Neuts % (Manual) Lymphocytes % (Manual) 8.0 L Monocytes % (Manual) Eosinophils % (Manual) Basophils % (Manual) Nucleated RBC % Seg Neutrophils # Seg Neutrophils # Man 14.7 H Lymphocytes # (Manual) Monocytes # (Manual) 1.1 H Eosinophils # (Manual) Basophils # (Manual) PT INR Fibrinogen dRVVT Confirm Interp Factor V Activity POC ABG pH POC ABG pCO2 POC ABG pO2 ABG pO2 ABG HCO3 ABG Base Excess ABG Hemoglobin Oxyhemoglobin Sodium Potassium Chloride Carbon Dioxide BUN 42 H Creatinine 2.0 H Glucose POC Glucose 108 H Lactic Acid Calcium Phosphorus Magnesium Direct Bilirubin AST ALT Alkaline Phosphatase Lactate Dehydrogenase Troponin T C-Reactive Protein Total Protein Albumin Prealbumin Triglycerides Cholesterol LDL Cholesterol Direct HDL Cholesterol Urine pH Urine WBC (Auto) Urine Creatinine Urine Total Protein Fluid Total Protein Vancomycin Trough Rheumatoid Factor Complement C4 Miscellaneous Test Crossmatch 11/21/16 11/21/16 11/21/16 08:38 10:09 11:20 WBC RBC Hgb Hct MCV MCH MCHC RDW Plt Count Lymph % (Auto) [place] % (Auto) Lymph # [place] # Baso # Seg Neutrophils % Seg Neuts % (Manual) Lymphocytes % (Manual) Monocytes % (Manual) Eosinophils % (Manual) Basophils % (Manual) Nucleated RBC % Seg Neutrophils # Seg Neutrophils # Man Lymphocytes # (Manual) Monocytes # (Manual) Eosinophils # (Manual) Basophils # (Manual) PT INR Fibrinogen dRVVT Confirm Interp Factor V Activity POC ABG pH 7.346 L POC ABG pCO2 34.4 L POC ABG pO2 314 H ABG pO2 ABG HCO3 ABG Base Excess ABG Hemoglobin Oxyhemoglobin Sodium Potassium Chloride Carbon Dioxide BUN Creatinine Glucose POC Glucose 195 H 153 H Lactic Acid Calcium Phosphorus Magnesium Direct Bilirubin AST ALT Alkaline Phosphatase Lactate Dehydrogenase Troponin T C-Reactive Protein Total Protein Albumin Prealbumin Triglycerides Cholesterol LDL Cholesterol Direct HDL Cholesterol Urine pH Urine WBC (Auto) Urine Creatinine Urine Total Protein Fluid Total Protein Vancomycin Trough Rheumatoid Factor Complement C4 Miscellaneous Test Crossmatch 11/21/16 11/22/16 11/22/16 23:37 04:48 05:00 WBC 29.7 H RBC 2.73 L Hgb 7.5 L Hct 24.2 L MCV MCH 27 L MCHC RDW 17.4 H Plt Count Lymph % (Auto) [place] % (Auto) Lymph # [place] # Baso # Seg Neutrophils % Seg Neuts % (Manual) Lymphocytes % (Manual) 7.0 L Monocytes % (Manual) Eosinophils % (Manual) Basophils % (Manual) Nucleated RBC % Seg Neutrophils # Seg Neutrophils # Man 15.4 H Lymphocytes # (Manual) Monocytes # (Manual) Eosinophils # (Manual) Basophils # (Manual) PT INR Fibrinogen dRVVT Confirm Interp Factor V Activity POC ABG pH POC ABG pCO2 24.6 L POC ABG pO2 189 H ABG pO2 ABG HCO3 ABG Base Excess ABG Hemoglobin Oxyhemoglobin Sodium Potassium Chloride Carbon Dioxide BUN Creatinine Glucose POC Glucose 65 L Lactic Acid Calcium Phosphorus Magnesium Direct Bilirubin AST ALT Alkaline Phosphatase Lactate Dehydrogenase Troponin T C-Reactive Protein Total Protein Albumin Prealbumin Triglycerides Cholesterol LDL Cholesterol Direct HDL Cholesterol Urine pH Urine WBC (Auto) Urine Creatinine Urine Total Protein Fluid Total Protein Vancomycin Trough Rheumatoid Factor Complement C4 Miscellaneous Test Crossmatch 11/22/16 11/23/16 11/23/16 05:00 03:44 04:06 WBC RBC 2.52 L Hgb 7.2 L Hct 21.5 L MCV MCH MCHC RDW 17.1 H Plt Count Lymph % (Auto) [place] % (Auto) 12.4 H Lymph # [place] # 1.4 H Baso # Seg Neutrophils % Seg Neuts % (Manual) Lymphocytes % (Manual) Monocytes % (Manual) Eosinophils % (Manual) Basophils % (Manual) Nucleated RBC % Seg Neutrophils # Seg Neutrophils # Man Lymphocytes # (Manual) Monocytes # (Manual) Eosinophils # (Manual) Basophils # (Manual) PT INR Fibrinogen dRVVT Confirm Interp Factor V Activity POC ABG pH 7.493 H POC ABG pCO2 29.5 L POC ABG pO2 49 L ABG pO2 ABG HCO3 ABG Base Excess ABG Hemoglobin Oxyhemoglobin Sodium 134 L Potassium Chloride 95.9 L Carbon Dioxide 14 L D BUN 51 H Creatinine 2.6 H Glucose POC Glucose Lactic Acid Calcium Phosphorus Magnesium Direct Bilirubin AST ALT Alkaline Phosphatase Lactate Dehydrogenase Troponin T C-Reactive Protein Total Protein Albumin Prealbumin Triglycerides Cholesterol LDL Cholesterol Direct HDL Cholesterol Urine pH Urine WBC (Auto) Urine Creatinine Urine Total Protein Fluid Total Protein Vancomycin Trough Rheumatoid Factor Complement C4 Miscellaneous Test Crossmatch 11/23/16 11/23/16 11/24/16 04:06 11:29 06:39 WBC RBC Hgb Hct MCV MCH MCHC RDW Plt Count Lymph % (Auto) [place] % (Auto) Lymph # [place] # Baso # Seg Neutrophils % Seg Neuts % (Manual) Lymphocytes % (Manual) Monocytes % (Manual) Eosinophils % (Manual) Basophils % (Manual) Nucleated RBC % Seg Neutrophils # Seg Neutrophils # Man Lymphocytes # (Manual) Monocytes # (Manual) Eosinophils # (Manual) Basophils # (Manual) PT INR Fibrinogen dRVVT Confirm Interp Factor V Activity POC ABG pH POC ABG pCO2 POC ABG pO2 ABG pO2 ABG HCO3 ABG Base Excess ABG Hemoglobin Oxyhemoglobin Sodium 136 L Potassium Chloride 95.2 L Carbon Dioxide BUN 60 H Creatinine 2.9 H Glucose POC Glucose 69 L 305 H Lactic Acid Calcium Phosphorus Magnesium 1.60 L Direct Bilirubin AST ALT Alkaline Phosphatase Lactate Dehydrogenase Troponin T C-Reactive Protein Total Protein Albumin Prealbumin Triglycerides Cholesterol LDL Cholesterol Direct HDL Cholesterol Urine pH Urine WBC (Auto) Urine Creatinine Urine Total Protein Fluid Total Protein Vancomycin Trough Rheumatoid Factor Complement C4 Miscellaneous Test Crossmatch 11/24/16 11/24/16 11/24/16 06:43 08:08 08:08 WBC 11.2 H RBC 2.47 L Hgb 6.8 L Hct 20.6 L MCV MCH MCHC RDW 17.0 H Plt Count Lymph % (Auto) [place] % (Auto) 10.3 H Lymph # [place] # 1.2 H Baso # Seg Neutrophils % Seg Neuts % (Manual) Lymphocytes % (Manual) Monocytes % (Manual) Eosinophils % (Manual) Basophils % (Manual) Nucleated RBC % Seg Neutrophils # Seg Neutrophils # Man Lymphocytes # (Manual) Monocytes # (Manual) Eosinophils # (Manual) Basophils # (Manual) PT INR Fibrinogen dRVVT Confirm Interp Factor V Activity POC ABG pH POC ABG pCO2 POC ABG pO2 ABG pO2 ABG HCO3 ABG Base Excess ABG Hemoglobin Oxyhemoglobin Sodium 135 L Potassium Chloride 96.3 L Carbon Dioxide BUN 61 H Creatinine 3.1 H Glucose POC Glucose 62 L Lactic Acid Calcium 8.2 L Phosphorus Magnesium Direct Bilirubin AST ALT Alkaline Phosphatase Lactate Dehydrogenase Troponin T C-Reactive Protein Total Protein Albumin Prealbumin Triglycerides Cholesterol LDL Cholesterol Direct HDL Cholesterol Urine pH Urine WBC (Auto) Urine Creatinine Urine Total Protein Fluid Total Protein Vancomycin Trough Rheumatoid Factor Complement C4 Miscellaneous Test Crossmatch 11/24/16 11/24/16 11/24/16 08:34 11:20 12:41 WBC RBC Hgb Hct MCV MCH MCHC RDW Plt Count Lymph % (Auto) [place] % (Auto) Lymph # [place] # Baso # Seg Neutrophils % Seg Neuts % (Manual) Lymphocytes % (Manual) Monocytes % (Manual) Eosinophils % (Manual) Basophils % (Manual) Nucleated RBC % Seg Neutrophils # Seg Neutrophils # Man Lymphocytes # (Manual) Monocytes # (Manual) Eosinophils # (Manual) Basophils # (Manual) PT INR Fibrinogen dRVVT Confirm Interp Factor V Activity POC ABG pH POC ABG pCO2 POC ABG pO2 ABG pO2 ABG HCO3 ABG Base Excess ABG Hemoglobin Oxyhemoglobin Sodium Potassium Chloride Carbon Dioxide BUN Creatinine Glucose POC Glucose 108 H Lactic Acid Calcium Phosphorus Magnesium 1.60 L Direct Bilirubin AST ALT Alkaline Phosphatase Lactate Dehydrogenase Troponin T C-Reactive Protein Total Protein Albumin Prealbumin Triglycerides Cholesterol LDL Cholesterol Direct HDL Cholesterol Urine pH Urine WBC (Auto) Urine Creatinine Urine Total Protein Fluid Total Protein Vancomycin Trough Rheumatoid Factor Complement C4 Miscellaneous Test Crossmatch See Detail 11/25/16 11/25/16 11/25/16 00:03 04:42 04:42 WBC RBC 3.03 L Hgb 8.6 L Hct 25.3 L MCV MCH MCHC RDW 16.2 H Plt Count Lymph % (Auto) [place] % (Auto) 8.1 H Lymph # [place] # Baso # Seg Neutrophils % 71.3 H Seg Neuts % (Manual) Lymphocytes % (Manual) Monocytes % (Manual) Eosinophils % (Manual) Basophils % (Manual) Nucleated RBC % Seg Neutrophils # Seg Neutrophils # Man Lymphocytes # (Manual) Monocytes # (Manual) Eosinophils # (Manual) Basophils # (Manual) PT INR Fibrinogen dRVVT Confirm Interp Factor V Activity POC ABG pH POC ABG pCO2 POC ABG pO2 ABG pO2 ABG HCO3 ABG Base Excess ABG Hemoglobin Oxyhemoglobin Sodium Potassium Chloride Carbon Dioxide BUN 61 H Creatinine 3.0 H Glucose 102 H POC Glucose 113 H Lactic Acid Calcium 8.2 L Phosphorus Magnesium Direct Bilirubin AST ALT Alkaline Phosphatase 142 H Lactate Dehydrogenase Troponin T C-Reactive Protein Total Protein 5.7 L Albumin 1.5 L Prealbumin Triglycerides Cholesterol LDL Cholesterol Direct HDL Cholesterol Urine pH Urine WBC (Auto) Urine Creatinine Urine Total Protein Fluid Total Protein Vancomycin Trough Rheumatoid Factor Complement C4 Miscellaneous Test Crossmatch 11/25/16 11/25/16 11/25/16 05:12 11:31 14:12 WBC RBC Hgb Hct MCV MCH MCHC RDW Plt Count Lymph % (Auto) [place] % (Auto) Lymph # [place] # Baso # Seg Neutrophils % Seg Neuts % (Manual) Lymphocytes % (Manual) Monocytes % (Manual) Eosinophils % (Manual) Basophils % (Manual) Nucleated RBC % Seg Neutrophils # Seg Neutrophils # Man Lymphocytes # (Manual) Monocytes # (Manual) Eosinophils # (Manual) Basophils # (Manual) PT INR Fibrinogen dRVVT Confirm Interp Factor V Activity POC ABG pH 7.487 H POC ABG pCO2 POC ABG pO2 153 H ABG pO2 ABG HCO3 ABG Base Excess ABG Hemoglobin Oxyhemoglobin Sodium Potassium Chloride Carbon Dioxide BUN Creatinine Glucose POC Glucose 131 H 140 H Lactic Acid Calcium Phosphorus Magnesium Direct Bilirubin AST ALT Alkaline Phosphatase Lactate Dehydrogenase Troponin T C-Reactive Protein Total Protein Albumin Prealbumin Triglycerides Cholesterol LDL Cholesterol Direct HDL Cholesterol Urine pH Urine WBC (Auto) Urine Creatinine Urine Total Protein Fluid Total Protein Vancomycin Trough Rheumatoid Factor Complement C4 Miscellaneous Test Crossmatch 11/25/16 11/26/16 11/26/16 17:23 00:09 05:13 WBC RBC 2.94 L Hgb 8.4 L Hct 24.6 L MCV MCH MCHC RDW 16.4 H Plt Count Lymph % (Auto) [place] % (Auto) 12.3 H Lymph # [place] # 1.1 H Baso # Seg Neutrophils % Seg Neuts % (Manual) Lymphocytes % (Manual) Monocytes % (Manual) Eosinophils % (Manual) Basophils % (Manual) Nucleated RBC % Seg Neutrophils # Seg Neutrophils # Man Lymphocytes # (Manual) Monocytes # (Manual) Eosinophils # (Manual) Basophils # (Manual) PT INR Fibrinogen dRVVT Confirm Interp Factor V Activity POC ABG pH POC ABG pCO2 POC ABG pO2 ABG pO2 ABG HCO3 ABG Base Excess ABG Hemoglobin Oxyhemoglobin Sodium Potassium Chloride Carbon Dioxide BUN Creatinine Glucose POC Glucose 146 H 112 H Lactic Acid Calcium Phosphorus Magnesium Direct Bilirubin AST ALT Alkaline Phosphatase Lactate Dehydrogenase Troponin T C-Reactive Protein Total Protein Albumin Prealbumin Triglycerides Cholesterol LDL Cholesterol Direct HDL Cholesterol Urine pH Urine WBC (Auto) Urine Creatinine Urine Total Protein Fluid Total Protein Vancomycin Trough Rheumatoid Factor Complement C4 Miscellaneous Test Crossmatch 11/26/16 11/26/16 11/26/16 05:13 05:28 11:53 WBC RBC Hgb Hct MCV MCH MCHC RDW Plt Count Lymph % (Auto) [place] % (Auto) Lymph # [place] # Baso # Seg Neutrophils % Seg Neuts % (Manual) Lymphocytes % (Manual) Monocytes % (Manual) Eosinophils % (Manual) Basophils % (Manual) Nucleated RBC % Seg Neutrophils # Seg Neutrophils # Man Lymphocytes # (Manual) Monocytes # (Manual) Eosinophils # (Manual) Basophils # (Manual) PT INR Fibrinogen dRVVT Confirm Interp Factor V Activity POC ABG pH POC ABG pCO2 POC ABG pO2 ABG pO2 ABG HCO3 ABG Base Excess ABG Hemoglobin Oxyhemoglobin Sodium Potassium Chloride 97.8 L Carbon Dioxide BUN 37 H Creatinine 2.0 H Glucose 109 H POC Glucose 117 H 111 H Lactic Acid Calcium 7.9 L Phosphorus 1.80 L D Magnesium Direct Bilirubin AST ALT Alkaline Phosphatase Lactate Dehydrogenase Troponin T C-Reactive Protein Total Protein Albumin Prealbumin Triglycerides Cholesterol LDL Cholesterol Direct HDL Cholesterol Urine pH Urine WBC (Auto) Urine Creatinine Urine Total Protein Fluid Total Protein Vancomycin Trough Rheumatoid Factor Complement C4 Miscellaneous Test Crossmatch 11/26/16 11/27/16 11/27/16 17:14 04:50 06:02 WBC RBC Hgb Hct MCV MCH MCHC RDW Plt Count Lymph % (Auto) [place] % (Auto) Lymph # [place] # Baso # Seg Neutrophils % Seg Neuts % (Manual) Lymphocytes % (Manual) Monocytes % (Manual) Eosinophils % (Manual) Basophils % (Manual) Nucleated RBC % Seg Neutrophils # Seg Neutrophils # Man Lymphocytes # (Manual) Monocytes # (Manual) Eosinophils # (Manual) Basophils # (Manual) PT INR Fibrinogen dRVVT Confirm Interp Factor V Activity POC ABG pH POC ABG pCO2 POC ABG pO2 ABG pO2 75.2 L ABG HCO3 26.4 H ABG Base Excess ABG Hemoglobin 7.6 L Oxyhemoglobin 94.8 L Sodium Potassium Chloride Carbon Dioxide BUN 49 H Creatinine 2.3 H Glucose POC Glucose 115 H Lactic Acid Calcium Phosphorus 1.50 L Magnesium Direct Bilirubin AST ALT Alkaline Phosphatase Lactate Dehydrogenase Troponin T C-Reactive Protein Total Protein Albumin Prealbumin Triglycerides Cholesterol LDL Cholesterol Direct HDL Cholesterol Urine pH Urine WBC (Auto) Urine Creatinine Urine Total Protein Fluid Total Protein Vancomycin Trough Rheumatoid Factor Complement C4 Miscellaneous Test Crossmatch 11/27/16 11/27/16 11/27/16 06:02 11:25 17:25 WBC 11.6 H RBC 2.75 L Hgb 7.6 L Hct 23.4 L MCV MCH MCHC RDW 16.5 H Plt Count Lymph % (Auto) [place] % (Auto) Lymph # [place] # Baso # Seg Neutrophils % Seg Neuts % (Manual) Lymphocytes % (Manual) Monocytes % (Manual) Eosinophils % (Manual) Basophils % (Manual) Nucleated RBC % Seg Neutrophils # Seg Neutrophils # Man Lymphocytes # (Manual) Monocytes # (Manual) Eosinophils # (Manual) Basophils # (Manual) PT INR Fibrinogen dRVVT Confirm Interp Factor V Activity POC ABG pH POC ABG pCO2 POC ABG pO2 ABG pO2 ABG HCO3 ABG Base Excess ABG Hemoglobin Oxyhemoglobin Sodium Potassium Chloride Carbon Dioxide BUN Creatinine Glucose POC Glucose 114 H 126 H Lactic Acid Calcium Phosphorus Magnesium Direct Bilirubin AST ALT Alkaline Phosphatase Lactate Dehydrogenase Troponin T C-Reactive Protein Total Protein Albumin Prealbumin Triglycerides Cholesterol LDL Cholesterol Direct HDL Cholesterol Urine pH Urine WBC (Auto) Urine Creatinine Urine Total Protein Fluid Total Protein Vancomycin Trough Rheumatoid Factor Complement C4 Miscellaneous Test Crossmatch 11/28/16 11/28/16 11/28/16 04:45 05:33 05:44 WBC RBC Hgb Hct MCV MCH MCHC RDW Plt Count Lymph % (Auto) [place] % (Auto) Lymph # [place] # Baso # Seg Neutrophils % Seg Neuts % (Manual) Lymphocytes % (Manual) Monocytes % (Manual) Eosinophils % (Manual) Basophils % (Manual) Nucleated RBC % Seg Neutrophils # Seg Neutrophils # Man Lymphocytes # (Manual) Monocytes # (Manual) Eosinophils # (Manual) Basophils # (Manual) PT INR Fibrinogen dRVVT Confirm Interp Factor V Activity POC ABG pH POC ABG pCO2 POC ABG pO2 ABG pO2 99.3 H ABG HCO3 ABG Base Excess ABG Hemoglobin 8.3 L Oxyhemoglobin Sodium Potassium Chloride Carbon Dioxide BUN 63 H Creatinine 2.4 H Glucose 102 H POC Glucose 108 H Lactic Acid Calcium Phosphorus 1.80 L Magnesium Direct Bilirubin AST ALT Alkaline Phosphatase Lactate Dehydrogenase Troponin T C-Reactive Protein Total Protein Albumin Prealbumin Triglycerides Cholesterol LDL Cholesterol Direct HDL Cholesterol Urine pH Urine WBC (Auto) Urine Creatinine Urine Total Protein Fluid Total Protein Vancomycin Trough Rheumatoid Factor Complement C4 Miscellaneous Test Crossmatch 11/28/16 11/28/16 11/28/16 12:31 16:09 23:46 WBC RBC Hgb Hct MCV MCH MCHC RDW Plt Count Lymph % (Auto) [place] % (Auto) Lymph # [place] # Baso # Seg Neutrophils % Seg Neuts % (Manual) Lymphocytes % (Manual) Monocytes % (Manual) Eosinophils % (Manual) Basophils % (Manual) Nucleated RBC % Seg Neutrophils # Seg Neutrophils # Man Lymphocytes # (Manual) Monocytes # (Manual) Eosinophils # (Manual) Basophils # (Manual) PT INR Fibrinogen dRVVT Confirm Interp Factor V Activity POC ABG pH POC ABG pCO2 POC ABG pO2 ABG pO2 ABG HCO3 ABG Base Excess ABG Hemoglobin Oxyhemoglobin Sodium Potassium Chloride Carbon Dioxide BUN Creatinine Glucose POC Glucose 126 H 111 H 119 H Lactic Acid Calcium Phosphorus Magnesium Direct Bilirubin AST ALT Alkaline Phosphatase Lactate Dehydrogenase Troponin T C-Reactive Protein Total Protein Albumin Prealbumin Triglycerides Cholesterol LDL Cholesterol Direct HDL Cholesterol Urine pH Urine WBC (Auto) Urine Creatinine Urine Total Protein Fluid Total Protein Vancomycin Trough Rheumatoid Factor Complement C4 Miscellaneous Test Crossmatch 11/29/16 11/29/16 11/29/16 03:33 04:52 05:10 WBC RBC Hgb Hct MCV MCH MCHC RDW Plt Count Lymph % (Auto) [place] % (Auto) Lymph # [place] # Baso # Seg Neutrophils % Seg Neuts % (Manual) Lymphocytes % (Manual) Monocytes % (Manual) Eosinophils % (Manual) Basophils % (Manual) Nucleated RBC % Seg Neutrophils # Seg Neutrophils # Man Lymphocytes # (Manual) Monocytes # (Manual) Eosinophils # (Manual) Basophils # (Manual) PT INR Fibrinogen dRVVT Confirm Interp Factor V Activity POC ABG pH POC ABG pCO2 POC ABG pO2 ABG pO2 ABG HCO3 ABG Base Excess ABG Hemoglobin 7.0 L Oxyhemoglobin 94.9 L Sodium Potassium Chloride Carbon Dioxide BUN 73 H Creatinine 2.7 H Glucose POC Glucose 108 H Lactic Acid Calcium Phosphorus Magnesium Direct Bilirubin AST ALT Alkaline Phosphatase Lactate Dehydrogenase Troponin T C-Reactive Protein Total Protein Albumin Prealbumin Triglycerides Cholesterol LDL Cholesterol Direct HDL Cholesterol Urine pH Urine WBC (Auto) Urine Creatinine Urine Total Protein Fluid Total Protein Vancomycin Trough Rheumatoid Factor Complement C4 Miscellaneous Test Crossmatch 11/29/16 11/29/16 11/29/16 12:16 18:05 23:46 WBC RBC Hgb Hct MCV MCH MCHC RDW Plt Count Lymph % (Auto) [place] % (Auto) Lymph # [place] # Baso # Seg Neutrophils % Seg Neuts % (Manual) Lymphocytes % (Manual) Monocytes % (Manual) Eosinophils % (Manual) Basophils % (Manual) Nucleated RBC % Seg Neutrophils # Seg Neutrophils # Man Lymphocytes # (Manual) Monocytes # (Manual) Eosinophils # (Manual) Basophils # (Manual) PT INR Fibrinogen dRVVT Confirm Interp Factor V Activity POC ABG pH POC ABG pCO2 POC ABG pO2 ABG pO2 ABG HCO3 ABG Base Excess ABG Hemoglobin Oxyhemoglobin Sodium Potassium Chloride Carbon Dioxide BUN Creatinine Glucose POC Glucose 133 H 146 H 141 H Lactic Acid Calcium Phosphorus Magnesium Direct Bilirubin AST ALT Alkaline Phosphatase Lactate Dehydrogenase Troponin T C-Reactive Protein Total Protein Albumin Prealbumin Triglycerides Cholesterol LDL Cholesterol Direct HDL Cholesterol Urine pH Urine WBC (Auto) Urine Creatinine Urine Total Protein Fluid Total Protein Vancomycin Trough Rheumatoid Factor Complement C4 Miscellaneous Test Crossmatch 11/30/16 11/30/16 11/30/16 04:17 04:17 04:32 WBC 12.0 H RBC 2.80 L Hgb 7.8 L Hct 23.6 L MCV MCH MCHC RDW 16.6 H Plt Count Lymph % (Auto) [place] % (Auto) 11.3 H Lymph # [place] # 1.4 H Baso # Seg Neutrophils % Seg Neuts % (Manual) Lymphocytes % (Manual) Monocytes % (Manual) Eosinophils % (Manual) Basophils % (Manual) Nucleated RBC % Seg Neutrophils # 8.2 H Seg Neutrophils # Man Lymphocytes # (Manual) Monocytes # (Manual) Eosinophils # (Manual) Basophils # (Manual) PT INR Fibrinogen dRVVT Confirm Interp Factor V Activity POC ABG pH POC ABG pCO2 POC ABG pO2 ABG pO2 ABG HCO3 ABG Base Excess ABG Hemoglobin Oxyhemoglobin Sodium 169 H* D Potassium 5.1 H Chloride 121.5 H Carbon Dioxide BUN 34 H Creatinine 1.3 H D Glucose 133 H POC Glucose 131 H Lactic Acid Calcium 10.3 H Phosphorus Magnesium Direct Bilirubin AST ALT Alkaline Phosphatase Lactate Dehydrogenase Troponin T C-Reactive Protein Total Protein Albumin Prealbumin Triglycerides Cholesterol LDL Cholesterol Direct HDL Cholesterol Urine pH Urine WBC (Auto) Urine Creatinine Urine Total Protein Fluid Total Protein Vancomycin Trough Rheumatoid Factor Complement C4 Miscellaneous Test Crossmatch 11/30/16 11/30/16 11/30/16 05:45 11:10 17:26 WBC RBC Hgb Hct MCV MCH MCHC RDW Plt Count Lymph % (Auto) [place] % (Auto) Lymph # [place] # Baso # Seg Neutrophils % Seg Neuts % (Manual) Lymphocytes % (Manual) Monocytes % (Manual) Eosinophils % (Manual) Basophils % (Manual) Nucleated RBC % Seg Neutrophils # Seg Neutrophils # Man Lymphocytes # (Manual) Monocytes # (Manual) Eosinophils # (Manual) Basophils # (Manual) PT INR Fibrinogen dRVVT Confirm Interp Factor V Activity POC ABG pH POC ABG pCO2 POC ABG pO2 ABG pO2 ABG HCO3 ABG Base Excess ABG Hemoglobin Oxyhemoglobin Sodium Potassium Chloride Carbon Dioxide BUN 45 H Creatinine 1.6 H Glucose 131 H POC Glucose 146 H 134 H Lactic Acid Calcium Phosphorus Magnesium Direct Bilirubin AST ALT Alkaline Phosphatase Lactate Dehydrogenase Troponin T C-Reactive Protein Total Protein Albumin Prealbumin Triglycerides Cholesterol LDL Cholesterol Direct HDL Cholesterol Urine pH Urine WBC (Auto) Urine Creatinine Urine Total Protein Fluid Total Protein Vancomycin Trough Rheumatoid Factor Complement C4 Miscellaneous Test Crossmatch 11/30/16 12/01/16 12/01/16 23:35 00:06 03:35 WBC RBC Hgb Hct MCV MCH MCHC RDW Plt Count Lymph % (Auto) [place] % (Auto) Lymph # [place] # Baso # Seg Neutrophils % Seg Neuts % (Manual) Lymphocytes % (Manual) Monocytes % (Manual) Eosinophils % (Manual) Basophils % (Manual) Nucleated RBC % Seg Neutrophils # Seg Neutrophils # Man Lymphocytes # (Manual) Monocytes # (Manual) Eosinophils # (Manual) Basophils # (Manual) PT INR Fibrinogen dRVVT Confirm Interp Factor V Activity POC ABG pH POC ABG pCO2 POC ABG pO2 ABG pO2 ABG HCO3 ABG Base Excess ABG Hemoglobin 6.9 L Oxyhemoglobin Sodium Potassium Chloride Carbon Dioxide BUN 58 H Creatinine 1.8 H Glucose 146 H POC Glucose 151 H Lactic Acid Calcium Phosphorus Magnesium Direct Bilirubin AST ALT Alkaline Phosphatase Lactate Dehydrogenase Troponin T C-Reactive Protein Total Protein Albumin Prealbumin Triglycerides Cholesterol LDL Cholesterol Direct HDL Cholesterol Urine pH Urine WBC (Auto) Urine Creatinine Urine Total Protein Fluid Total Protein Vancomycin Trough Rheumatoid Factor Complement C4 Miscellaneous Test Crossmatch 12/01/16 12/01/16 12/01/16 03:35 05:47 11:52 WBC 12.3 H RBC 2.82 L Hgb 7.8 L Hct 23.7 L MCV MCH MCHC RDW 16.7 H Plt Count Lymph % (Auto) [place] % (Auto) 9.8 H Lymph # [place] # 1.2 H Baso # Seg Neutrophils % Seg Neuts % (Manual) Lymphocytes % (Manual) Monocytes % (Manual) Eosinophils % (Manual) Basophils % (Manual) Nucleated RBC % Seg Neutrophils # 8.4 H Seg Neutrophils # Man Lymphocytes # (Manual) Monocytes # (Manual) Eosinophils # (Manual) Basophils # (Manual) PT INR Fibrinogen dRVVT Confirm Interp Factor V Activity POC ABG pH POC ABG pCO2 POC ABG pO2 ABG pO2 ABG HCO3 ABG Base Excess ABG Hemoglobin Oxyhemoglobin Sodium Potassium Chloride Carbon Dioxide BUN Creatinine Glucose POC Glucose 152 H 152 H Lactic Acid Calcium Phosphorus Magnesium Direct Bilirubin AST ALT Alkaline Phosphatase Lactate Dehydrogenase Troponin T C-Reactive Protein Total Protein Albumin Prealbumin Triglycerides Cholesterol LDL Cholesterol Direct HDL Cholesterol Urine pH Urine WBC (Auto) Urine Creatinine Urine Total Protein Fluid Total Protein Vancomycin Trough Rheumatoid Factor Complement C4 Miscellaneous Test Crossmatch 12/01/16 12/01/16 12/02/16 17:40 23:41 05:00 WBC RBC Hgb Hct MCV MCH MCHC RDW Plt Count Lymph % (Auto) [place] % (Auto) Lymph # [place] # Baso # Seg Neutrophils % Seg Neuts % (Manual) Lymphocytes % (Manual) Monocytes % (Manual) Eosinophils % (Manual) Basophils % (Manual) Nucleated RBC % Seg Neutrophils # Seg Neutrophils # Man Lymphocytes # (Manual) Monocytes # (Manual) Eosinophils # (Manual) Basophils # (Manual) PT INR Fibrinogen dRVVT Confirm Interp Factor V Activity POC ABG pH POC ABG pCO2 POC ABG pO2 ABG pO2 ABG HCO3 ABG Base Excess ABG Hemoglobin Oxyhemoglobin Sodium Potassium Chloride Carbon Dioxide BUN 45 H Creatinine Glucose 115 H POC Glucose 140 H 144 H Lactic Acid Calcium Phosphorus Magnesium Direct Bilirubin AST ALT Alkaline Phosphatase Lactate Dehydrogenase Troponin T C-Reactive Protein Total Protein Albumin Prealbumin Triglycerides Cholesterol LDL Cholesterol Direct HDL Cholesterol Urine pH Urine WBC (Auto) Urine Creatinine Urine Total Protein Fluid Total Protein Vancomycin Trough Rheumatoid Factor Complement C4 Miscellaneous Test Crossmatch 12/02/16 12/02/16 12/02/16 05:31 11:20 17:38 WBC RBC Hgb Hct MCV MCH MCHC RDW Plt Count Lymph % (Auto) [place] % (Auto) Lymph # [place] # Baso # Seg Neutrophils % Seg Neuts % (Manual) Lymphocytes % (Manual) Monocytes % (Manual) Eosinophils % (Manual) Basophils % (Manual) Nucleated RBC % Seg Neutrophils # Seg Neutrophils # Man Lymphocytes # (Manual) Monocytes # (Manual) Eosinophils # (Manual) Basophils # (Manual) PT INR Fibrinogen dRVVT Confirm Interp Factor V Activity POC ABG pH POC ABG pCO2 POC ABG pO2 ABG pO2 ABG HCO3 ABG Base Excess ABG Hemoglobin Oxyhemoglobin Sodium Potassium Chloride Carbon Dioxide BUN Creatinine Glucose POC Glucose 136 H 177 H 139 H Lactic Acid Calcium Phosphorus Magnesium Direct Bilirubin AST ALT Alkaline Phosphatase Lactate Dehydrogenase Troponin T C-Reactive Protein Total Protein Albumin Prealbumin Triglycerides Cholesterol LDL Cholesterol Direct HDL Cholesterol Urine pH Urine WBC (Auto) Urine Creatinine Urine Total Protein Fluid Total Protein Vancomycin Trough Rheumatoid Factor Complement C4 Miscellaneous Test Crossmatch 12/02/16 12/03/16 12/03/16 23:43 04:00 04:00 WBC 20.4 H RBC 2.74 L Hgb 7.4 L Hct 23.6 L MCV MCH 27 L MCHC RDW 17.1 H Plt Count Lymph % (Auto) [place] % (Auto) Lymph # [place] # Baso # Seg Neutrophils % Seg Neuts % (Manual) 31.0 L Lymphocytes % (Manual) Monocytes % (Manual) Eosinophils % (Manual) Basophils % (Manual) Nucleated RBC % Seg Neutrophils # Seg Neutrophils # Man Lymphocytes # (Manual) Monocytes # (Manual) Eosinophils # (Manual) Basophils # (Manual) PT INR Fibrinogen dRVVT Confirm Interp Factor V Activity POC ABG pH POC ABG pCO2 POC ABG pO2 ABG pO2 ABG HCO3 ABG Base Excess ABG Hemoglobin Oxyhemoglobin Sodium Potassium Chloride Carbon Dioxide BUN 61 H Creatinine 1.6 H Glucose 119 H POC Glucose 158 H Lactic Acid Calcium Phosphorus Magnesium Direct Bilirubin AST ALT Alkaline Phosphatase Lactate Dehydrogenase Troponin T C-Reactive Protein Total Protein Albumin Prealbumin Triglycerides Cholesterol LDL Cholesterol Direct HDL Cholesterol Urine pH Urine WBC (Auto) Urine Creatinine Urine Total Protein Fluid Total Protein Vancomycin Trough Rheumatoid Factor Complement C4 Miscellaneous Test Crossmatch 12/03/16 12/03/16 12/03/16 05:02 12:11 18:16 WBC RBC Hgb Hct MCV MCH MCHC RDW Plt Count Lymph % (Auto) [place] % (Auto) Lymph # [place] # Baso # Seg Neutrophils % Seg Neuts % (Manual) Lymphocytes % (Manual) Monocytes % (Manual) Eosinophils % (Manual) Basophils % (Manual) Nucleated RBC % Seg Neutrophils # Seg Neutrophils # Man Lymphocytes # (Manual) Monocytes # (Manual) Eosinophils # (Manual) Basophils # (Manual) PT INR Fibrinogen dRVVT Confirm Interp Factor V Activity POC ABG pH POC ABG pCO2 POC ABG pO2 ABG pO2 ABG HCO3 ABG Base Excess ABG Hemoglobin Oxyhemoglobin Sodium Potassium Chloride Carbon Dioxide BUN Creatinine Glucose POC Glucose 146 H 157 H 124 H Lactic Acid Calcium Phosphorus Magnesium Direct Bilirubin AST ALT Alkaline Phosphatase Lactate Dehydrogenase Troponin T C-Reactive Protein Total Protein Albumin Prealbumin Triglycerides Cholesterol LDL Cholesterol Direct HDL Cholesterol Urine pH Urine WBC (Auto) Urine Creatinine Urine Total Protein Fluid Total Protein Vancomycin Trough Rheumatoid Factor Complement C4 Miscellaneous Test Crossmatch 12/03/16 12/04/16 12/04/16 23:41 04:00 04:45 WBC RBC Hgb Hct MCV MCH MCHC RDW Plt Count Lymph % (Auto) [place] % (Auto) Lymph # [place] # Baso # Seg Neutrophils % Seg Neuts % (Manual) Lymphocytes % (Manual) Monocytes % (Manual) Eosinophils % (Manual) Basophils % (Manual) Nucleated RBC % Seg Neutrophils # Seg Neutrophils # Man Lymphocytes # (Manual) Monocytes # (Manual) Eosinophils # (Manual) Basophils # (Manual) PT INR Fibrinogen dRVVT Confirm Interp Factor V Activity POC ABG pH POC ABG pCO2 POC ABG pO2 ABG pO2 ABG HCO3 ABG Base Excess ABG Hemoglobin Oxyhemoglobin Sodium Potassium Chloride Carbon Dioxide BUN 76 H Creatinine 1.6 H Glucose POC Glucose 130 H 136 H Lactic Acid Calcium Phosphorus Magnesium Direct Bilirubin AST ALT Alkaline Phosphatase 155 H Lactate Dehydrogenase Troponin T C-Reactive Protein Total Protein 5.5 L Albumin 1.5 L Prealbumin Triglycerides Cholesterol LDL Cholesterol Direct HDL Cholesterol Urine pH Urine WBC (Auto) Urine Creatinine Urine Total Protein Fluid Total Protein Vancomycin Trough Rheumatoid Factor Complement C4 Miscellaneous Test Crossmatch 12/04/16 12/04/16 12/05/16 12:08 17:23 00:10 WBC RBC Hgb Hct MCV MCH MCHC RDW Plt Count Lymph % (Auto) [place] % (Auto) Lymph # [place] # Baso # Seg Neutrophils % Seg Neuts % (Manual) Lymphocytes % (Manual) Monocytes % (Manual) Eosinophils % (Manual) Basophils % (Manual) Nucleated RBC % Seg Neutrophils # Seg Neutrophils # Man Lymphocytes # (Manual) Monocytes # (Manual) Eosinophils # (Manual) Basophils # (Manual) PT INR Fibrinogen dRVVT Confirm Interp Factor V Activity POC ABG pH POC ABG pCO2 POC ABG pO2 ABG pO2 ABG HCO3 ABG Base Excess ABG Hemoglobin Oxyhemoglobin Sodium Potassium Chloride Carbon Dioxide BUN Creatinine Glucose POC Glucose 114 H 129 H 124 H Lactic Acid Calcium Phosphorus Magnesium Direct Bilirubin AST ALT Alkaline Phosphatase Lactate Dehydrogenase Troponin T C-Reactive Protein Total Protein Albumin Prealbumin Triglycerides Cholesterol LDL Cholesterol Direct HDL Cholesterol Urine pH Urine WBC (Auto) Urine Creatinine Urine Total Protein Fluid Total Protein Vancomycin Trough Rheumatoid Factor Complement C4 Miscellaneous Test Crossmatch 12/05/16 12/05/16 12/05/16 05:00 05:00 05:18 WBC RBC Hgb Hct MCV MCH MCHC RDW Plt Count Lymph % (Auto) [place] % (Auto) Lymph # [place] # Baso # Seg Neutrophils % Seg Neuts % (Manual) Lymphocytes % (Manual) Monocytes % (Manual) Eosinophils % (Manual) Basophils % (Manual) Nucleated RBC % Seg Neutrophils # Seg Neutrophils # Man Lymphocytes # (Manual) Monocytes # (Manual) Eosinophils # (Manual) Basophils # (Manual) PT INR Fibrinogen dRVVT Confirm Interp Factor V Activity POC ABG pH POC ABG pCO2 POC ABG pO2 ABG pO2 ABG HCO3 ABG Base Excess ABG Hemoglobin Oxyhemoglobin Sodium Potassium Chloride Carbon Dioxide 21 L BUN 85 H Creatinine 1.9 H Glucose 131 H POC Glucose 154 H Lactic Acid Calcium Phosphorus Magnesium Direct Bilirubin AST ALT Alkaline Phosphatase Lactate Dehydrogenase Troponin T C-Reactive Protein 19.30 H Total Protein Albumin Prealbumin Triglycerides Cholesterol LDL Cholesterol Direct HDL Cholesterol Urine pH Urine WBC (Auto) Urine Creatinine Urine Total Protein Fluid Total Protein Vancomycin Trough Rheumatoid Factor Complement C4 Miscellaneous Test Crossmatch 12/05/16 12/05/16 12/05/16 11:43 17:46 23:25 WBC RBC Hgb Hct MCV MCH MCHC RDW Plt Count Lymph % (Auto) [place] % (Auto) Lymph # [place] # Baso # Seg Neutrophils % Seg Neuts % (Manual) Lymphocytes % (Manual) Monocytes % (Manual) Eosinophils % (Manual) Basophils % (Manual) Nucleated RBC % Seg Neutrophils # Seg Neutrophils # Man Lymphocytes # (Manual) Monocytes # (Manual) Eosinophils # (Manual) Basophils # (Manual) PT INR Fibrinogen dRVVT Confirm Interp Factor V Activity POC ABG pH POC ABG pCO2 POC ABG pO2 ABG pO2 ABG HCO3 ABG Base Excess ABG Hemoglobin Oxyhemoglobin Sodium Potassium Chloride Carbon Dioxide BUN Creatinine Glucose POC Glucose 117 H 113 H 111 H Lactic Acid Calcium Phosphorus Magnesium Direct Bilirubin AST ALT Alkaline Phosphatase Lactate Dehydrogenase Troponin T C-Reactive Protein Total Protein Albumin Prealbumin Triglycerides Cholesterol LDL Cholesterol Direct HDL Cholesterol Urine pH Urine WBC (Auto) Urine Creatinine Urine Total Protein Fluid Total Protein Vancomycin Trough Rheumatoid Factor Complement C4 Miscellaneous Test Crossmatch 12/05/16 12/06/16 12/06/16 Unknown 04:58 06:00 WBC RBC Hgb Hct MCV MCH MCHC RDW Plt Count Lymph % (Auto) [place] % (Auto) Lymph # [place] # Baso # Seg Neutrophils % Seg Neuts % (Manual) Lymphocytes % (Manual) Monocytes % (Manual) Eosinophils % (Manual) Basophils % (Manual) Nucleated RBC % Seg Neutrophils # Seg Neutrophils # Man Lymphocytes # (Manual) Monocytes # (Manual) Eosinophils # (Manual) Basophils # (Manual) PT INR Fibrinogen dRVVT Confirm Interp Factor V Activity POC ABG pH POC ABG pCO2 POC ABG pO2 ABG pO2 75.2 L ABG HCO3 ABG Base Excess -3.4 L ABG Hemoglobin 7.4 L Oxyhemoglobin 94.5 L Sodium Potassium Chloride Carbon Dioxide 20 L BUN 99 H Creatinine 2.1 H Glucose 126 H POC Glucose 145 H Lactic Acid Calcium Phosphorus 4.80 H Magnesium Direct Bilirubin AST ALT Alkaline Phosphatase Lactate Dehydrogenase Troponin T C-Reactive Protein Total Protein Albumin Prealbumin Triglycerides Cholesterol LDL Cholesterol Direct HDL Cholesterol Urine pH Urine WBC (Auto) Urine Creatinine Urine Total Protein Fluid Total Protein Vancomycin Trough Rheumatoid Factor Complement C4 Miscellaneous Test Crossmatch 12/06/16 12/06/16 12/06/16 06:46 11:54 17:55 WBC RBC Hgb 8.3 L Hct 26.4 L MCV MCH MCHC RDW Plt Count Lymph % (Auto) [place] % (Auto) Lymph # [place] # Baso # Seg Neutrophils % Seg Neuts % (Manual) Lymphocytes % (Manual) Monocytes % (Manual) Eosinophils % (Manual) Basophils % (Manual) Nucleated RBC % Seg Neutrophils # Seg Neutrophils # Man Lymphocytes # (Manual) Monocytes # (Manual) Eosinophils # (Manual) Basophils # (Manual) PT INR Fibrinogen dRVVT Confirm Interp Factor V Activity POC ABG pH POC ABG pCO2 POC ABG pO2 ABG pO2 ABG HCO3 ABG Base Excess ABG Hemoglobin Oxyhemoglobin Sodium Potassium Chloride Carbon Dioxide BUN Creatinine Glucose POC Glucose 126 H 157 H Lactic Acid Calcium Phosphorus Magnesium Direct Bilirubin AST ALT Alkaline Phosphatase Lactate Dehydrogenase Troponin T C-Reactive Protein Total Protein Albumin Prealbumin Triglycerides Cholesterol LDL Cholesterol Direct HDL Cholesterol Urine pH Urine WBC (Auto) Urine Creatinine Urine Total Protein Fluid Total Protein Vancomycin Trough Rheumatoid Factor Complement C4 Miscellaneous Test Crossmatch 12/06/16 12/07/16 12/07/16 23:59 05:34 06:30 WBC RBC Hgb Hct MCV MCH MCHC RDW Plt Count Lymph % (Auto) [place] % (Auto) Lymph # [place] # Baso # Seg Neutrophils % Seg Neuts % (Manual) Lymphocytes % (Manual) Monocytes % (Manual) Eosinophils % (Manual) Basophils % (Manual) Nucleated RBC % Seg Neutrophils # Seg Neutrophils # Man Lymphocytes # (Manual) Monocytes # (Manual) Eosinophils # (Manual) Basophils # (Manual) PT INR Fibrinogen dRVVT Confirm Interp Factor V Activity POC ABG pH POC ABG pCO2 POC ABG pO2 ABG pO2 ABG HCO3 ABG Base Excess ABG Hemoglobin Oxyhemoglobin Sodium Potassium Chloride Carbon Dioxide BUN 67 H Creatinine 1.4 H Glucose 126 H POC Glucose 129 H 129 H Lactic Acid Calcium Phosphorus Magnesium Direct Bilirubin AST ALT Alkaline Phosphatase Lactate Dehydrogenase Troponin T C-Reactive Protein Total Protein Albumin Prealbumin Triglycerides Cholesterol LDL Cholesterol Direct HDL Cholesterol Urine pH Urine WBC (Auto) Urine Creatinine Urine Total Protein Fluid Total Protein Vancomycin Trough Rheumatoid Factor Complement C4 Miscellaneous Test Crossmatch 12/07/16 12/07/16 12/07/16 06:30 08:00 09:45 WBC 18.8 H RBC 2.52 L Hgb 6.9 L 6.8 L Hct 21.2 L 21.1 L MCV MCH 27 L MCHC RDW 18.0 H Plt Count Lymph % (Auto) [place] % (Auto) 9.9 H Lymph # [place] # 1.9 H Baso # Seg Neutrophils % 71.8 H Seg Neuts % (Manual) Lymphocytes % (Manual) Monocytes % (Manual) Eosinophils % (Manual) Basophils % (Manual) Nucleated RBC % Seg Neutrophils # 13.5 H Seg Neutrophils # Man Lymphocytes # (Manual) Monocytes # (Manual) Eosinophils # (Manual) Basophils # (Manual) PT INR Fibrinogen dRVVT Confirm Interp Factor V Activity POC ABG pH POC ABG pCO2 POC ABG pO2 ABG pO2 ABG HCO3 ABG Base Excess ABG Hemoglobin Oxyhemoglobin Sodium Potassium Chloride Carbon Dioxide BUN Creatinine Glucose POC Glucose Lactic Acid Calcium Phosphorus Magnesium Direct Bilirubin AST ALT Alkaline Phosphatase Lactate Dehydrogenase Troponin T C-Reactive Protein Total Protein Albumin Prealbumin Triglycerides Cholesterol LDL Cholesterol Direct HDL Cholesterol Urine pH Urine WBC (Auto) Urine Creatinine Urine Total Protein Fluid Total Protein Vancomycin Trough Rheumatoid Factor Complement C4 Miscellaneous Test Crossmatch See Detail 12/07/16 12/07/16 12/07/16 11:44 18:19 23:59 WBC RBC Hgb Hct MCV MCH MCHC RDW Plt Count Lymph % (Auto) [place] % (Auto) Lymph # [place] # Baso # Seg Neutrophils % Seg Neuts % (Manual) Lymphocytes % (Manual) Monocytes % (Manual) Eosinophils % (Manual) Basophils % (Manual) Nucleated RBC % Seg Neutrophils # Seg Neutrophils # Man Lymphocytes # (Manual) Monocytes # (Manual) Eosinophils # (Manual) Basophils # (Manual) PT INR Fibrinogen dRVVT Confirm Interp Factor V Activity POC ABG pH POC ABG pCO2 POC ABG pO2 ABG pO2 ABG HCO3 ABG Base Excess ABG Hemoglobin Oxyhemoglobin Sodium Potassium Chloride Carbon Dioxide BUN Creatinine Glucose POC Glucose 137 H 138 H 133 H Lactic Acid Calcium Phosphorus Magnesium Direct Bilirubin AST ALT Alkaline Phosphatase Lactate Dehydrogenase Troponin T C-Reactive Protein Total Protein Albumin Prealbumin Triglycerides Cholesterol LDL Cholesterol Direct HDL Cholesterol Urine pH Urine WBC (Auto) Urine Creatinine Urine Total Protein Fluid Total Protein Vancomycin Trough Rheumatoid Factor Complement C4 Miscellaneous Test Crossmatch 12/08/16 12/08/16 12/08/16 05:25 05:30 05:30 WBC 23.8 H RBC 2.88 L Hgb 8.1 L Hct 24.3 L MCV MCH MCHC RDW 16.7 H Plt Count Lymph % (Auto) [place] % (Auto) Lymph # [place] # Baso # Seg Neutrophils % Seg Neuts % (Manual) 76.0 H Lymphocytes % (Manual) 9.0 L Monocytes % (Manual) 9.0 H Eosinophils % (Manual) Basophils % (Manual) Nucleated RBC % Seg Neutrophils # Seg Neutrophils # Man 18.1 H Lymphocytes # (Manual) Monocytes # (Manual) 2.1 H Eosinophils # (Manual) Basophils # (Manual) PT INR Fibrinogen dRVVT Confirm Interp Factor V Activity POC ABG pH POC ABG pCO2 POC ABG pO2 ABG pO2 ABG HCO3 ABG Base Excess ABG Hemoglobin Oxyhemoglobin Sodium Potassium Chloride Carbon Dioxide 21 L BUN 76 H Creatinine 1.6 H Glucose 133 H POC Glucose 177 H Lactic Acid Calcium Phosphorus Magnesium Direct Bilirubin AST ALT Alkaline Phosphatase Lactate Dehydrogenase Troponin T C-Reactive Protein Total Protein Albumin Prealbumin Triglycerides Cholesterol LDL Cholesterol Direct HDL Cholesterol Urine pH Urine WBC (Auto) Urine Creatinine Urine Total Protein Fluid Total Protein Vancomycin Trough Rheumatoid Factor Complement C4 Miscellaneous Test Crossmatch 12/08/16 12/08/16 12/09/16 11:45 18:00 00:00 WBC RBC Hgb Hct MCV MCH MCHC RDW Plt Count Lymph % (Auto) [place] % (Auto) Lymph # [place] # Baso # Seg Neutrophils % Seg Neuts % (Manual) Lymphocytes % (Manual) Monocytes % (Manual) Eosinophils % (Manual) Basophils % (Manual) Nucleated RBC % Seg Neutrophils # Seg Neutrophils # Man Lymphocytes # (Manual) Monocytes # (Manual) Eosinophils # (Manual) Basophils # (Manual) PT INR Fibrinogen dRVVT Confirm Interp Factor V Activity POC ABG pH POC ABG pCO2 POC ABG pO2 ABG pO2 ABG HCO3 ABG Base Excess ABG Hemoglobin Oxyhemoglobin Sodium Potassium Chloride Carbon Dioxide BUN Creatinine Glucose POC Glucose 163 H 123 H 137 H Lactic Acid Calcium Phosphorus Magnesium Direct Bilirubin AST ALT Alkaline Phosphatase Lactate Dehydrogenase Troponin T C-Reactive Protein Total Protein Albumin Prealbumin Triglycerides Cholesterol LDL Cholesterol Direct HDL Cholesterol Urine pH Urine WBC (Auto) Urine Creatinine Urine Total Protein Fluid Total Protein Vancomycin Trough Rheumatoid Factor Complement C4 Miscellaneous Test Crossmatch 12/09/16 12/09/16 12/09/16 05:34 06:00 06:00 WBC 15.5 H RBC 2.87 L Hgb 8.0 L Hct 24.2 L MCV MCH MCHC RDW 17.2 H Plt Count Lymph % (Auto) [place] % (Auto) 11.6 H Lymph # [place] # 1.8 H Baso # Seg Neutrophils % 70.8 H Seg Neuts % (Manual) Lymphocytes % (Manual) Monocytes % (Manual) Eosinophils % (Manual) Basophils % (Manual) Nucleated RBC % Seg Neutrophils # 11.0 H Seg Neutrophils # Man Lymphocytes # (Manual) Monocytes # (Manual) Eosinophils # (Manual) Basophils # (Manual) PT INR Fibrinogen dRVVT Confirm Interp Factor V Activity POC ABG pH POC ABG pCO2 POC ABG pO2 ABG pO2 ABG HCO3 ABG Base Excess ABG Hemoglobin Oxyhemoglobin Sodium Potassium Chloride Carbon Dioxide BUN 51 H Creatinine Glucose 117 H POC Glucose 136 H Lactic Acid Calcium Phosphorus Magnesium Direct Bilirubin AST ALT Alkaline Phosphatase Lactate Dehydrogenase Troponin T C-Reactive Protein Total Protein Albumin Prealbumin Triglycerides Cholesterol LDL Cholesterol Direct HDL Cholesterol Urine pH Urine WBC (Auto) Urine Creatinine Urine Total Protein Fluid Total Protein Vancomycin Trough Rheumatoid Factor Complement C4 Miscellaneous Test Crossmatch 12/09/16 12/09/16 12/09/16 12:29 17:52 23:10 WBC RBC Hgb Hct MCV MCH MCHC RDW Plt Count Lymph % (Auto) [place] % (Auto) Lymph # [place] # Baso # Seg Neutrophils % Seg Neuts % (Manual) Lymphocytes % (Manual) Monocytes % (Manual) Eosinophils % (Manual) Basophils % (Manual) Nucleated RBC % Seg Neutrophils # Seg Neutrophils # Man Lymphocytes # (Manual) Monocytes # (Manual) Eosinophils # (Manual) Basophils # (Manual) PT INR Fibrinogen dRVVT Confirm Interp Factor V Activity POC ABG pH POC ABG pCO2 POC ABG pO2 ABG pO2 ABG HCO3 ABG Base Excess ABG Hemoglobin Oxyhemoglobin Sodium Potassium Chloride Carbon Dioxide BUN Creatinine Glucose POC Glucose 139 H 140 H 129 H Lactic Acid Calcium Phosphorus Magnesium Direct Bilirubin AST ALT Alkaline Phosphatase Lactate Dehydrogenase Troponin T C-Reactive Protein Total Protein Albumin Prealbumin Triglycerides Cholesterol LDL Cholesterol Direct HDL Cholesterol Urine pH Urine WBC (Auto) Urine Creatinine Urine Total Protein Fluid Total Protein Vancomycin Trough Rheumatoid Factor Complement C4 Miscellaneous Test Crossmatch 12/10/16 12/10/16 12/10/16 05:00 05:00 06:54 WBC 15.7 H RBC 2.87 L Hgb 8.2 L Hct 24.4 L MCV MCH MCHC RDW 17.2 H Plt Count Lymph % (Auto) [place] % (Auto) 8.3 H Lymph # [place] # 1.3 H Baso # Seg Neutrophils % 72.8 H Seg Neuts % (Manual) Lymphocytes % (Manual) Monocytes % (Manual) Eosinophils % (Manual) Basophils % (Manual) Nucleated RBC % Seg Neutrophils # 11.4 H Seg Neutrophils # Man Lymphocytes # (Manual) Monocytes # (Manual) Eosinophils # (Manual) Basophils # (Manual) PT INR Fibrinogen dRVVT Confirm Interp Factor V Activity POC ABG pH POC ABG pCO2 POC ABG pO2 ABG pO2 ABG HCO3 ABG Base Excess ABG Hemoglobin Oxyhemoglobin Sodium Potassium Chloride Carbon Dioxide BUN 64 H Creatinine 1.4 H Glucose 134 H POC Glucose 154 H Lactic Acid Calcium Phosphorus Magnesium Direct Bilirubin AST ALT Alkaline Phosphatase Lactate Dehydrogenase Troponin T C-Reactive Protein Total Protein Albumin Prealbumin Triglycerides Cholesterol LDL Cholesterol Direct HDL Cholesterol Urine pH Urine WBC (Auto) Urine Creatinine Urine Total Protein Fluid Total Protein Vancomycin Trough Rheumatoid Factor Complement C4 Miscellaneous Test Crossmatch 12/10/16 12/10/16 12/10/16 11:58 17:29 23:52 WBC RBC Hgb Hct MCV MCH MCHC RDW Plt Count Lymph % (Auto) [place] % (Auto) Lymph # [place] # Baso # Seg Neutrophils % Seg Neuts % (Manual) Lymphocytes % (Manual) Monocytes % (Manual) Eosinophils % (Manual) Basophils % (Manual) Nucleated RBC % Seg Neutrophils # Seg Neutrophils # Man Lymphocytes # (Manual) Monocytes # (Manual) Eosinophils # (Manual) Basophils # (Manual) PT INR Fibrinogen dRVVT Confirm Interp Factor V Activity POC ABG pH POC ABG pCO2 POC ABG pO2 ABG pO2 ABG HCO3 ABG Base Excess ABG Hemoglobin Oxyhemoglobin Sodium Potassium Chloride Carbon Dioxide BUN Creatinine Glucose POC Glucose 144 H 163 H 125 H Lactic Acid Calcium Phosphorus Magnesium Direct Bilirubin AST ALT Alkaline Phosphatase Lactate Dehydrogenase Troponin T C-Reactive Protein Total Protein Albumin Prealbumin Triglycerides Cholesterol LDL Cholesterol Direct HDL Cholesterol Urine pH Urine WBC (Auto) Urine Creatinine Urine Total Protein Fluid Total Protein Vancomycin Trough Rheumatoid Factor Complement C4 Miscellaneous Test Crossmatch 12/11/16 12/11/16 12/11/16 05:38 06:30 06:30 WBC 14.4 H RBC 2.76 L Hgb 7.7 L Hct 23.4 L MCV MCH MCHC RDW 17.2 H Plt Count Lymph % (Auto) [place] % (Auto) 8.8 H Lymph # [place] # 1.3 H Baso # Seg Neutrophils % 72.5 H Seg Neuts % (Manual) Lymphocytes % (Manual) Monocytes % (Manual) Eosinophils % (Manual) Basophils % (Manual) Nucleated RBC % Seg Neutrophils # 10.5 H Seg Neutrophils # Man Lymphocytes # (Manual) Monocytes # (Manual) Eosinophils # (Manual) Basophils # (Manual) PT INR Fibrinogen dRVVT Confirm Interp Factor V Activity POC ABG pH POC ABG pCO2 POC ABG pO2 ABG pO2 ABG HCO3 ABG Base Excess ABG Hemoglobin Oxyhemoglobin Sodium Potassium Chloride Carbon Dioxide BUN 43 H Creatinine Glucose 124 H POC Glucose 141 H Lactic Acid Calcium 8.3 L Phosphorus Magnesium 1.60 L Direct Bilirubin AST ALT Alkaline Phosphatase Lactate Dehydrogenase Troponin T C-Reactive Protein Total Protein Albumin Prealbumin Triglycerides Cholesterol LDL Cholesterol Direct HDL Cholesterol Urine pH Urine WBC (Auto) Urine Creatinine Urine Total Protein Fluid Total Protein Vancomycin Trough Rheumatoid Factor Complement C4 Miscellaneous Test Crossmatch 12/11/16 12/11/16 12/11/16 11:15 17:59 23:48 WBC RBC Hgb Hct MCV MCH MCHC RDW Plt Count Lymph % (Auto) [place] % (Auto) Lymph # [place] # Baso # Seg Neutrophils % Seg Neuts % (Manual) Lymphocytes % (Manual) Monocytes % (Manual) Eosinophils % (Manual) Basophils % (Manual) Nucleated RBC % Seg Neutrophils # Seg Neutrophils # Man Lymphocytes # (Manual) Monocytes # (Manual) Eosinophils # (Manual) Basophils # (Manual) PT INR Fibrinogen dRVVT Confirm Interp Factor V Activity POC ABG pH POC ABG pCO2 POC ABG pO2 ABG pO2 ABG HCO3 ABG Base Excess ABG Hemoglobin Oxyhemoglobin Sodium Potassium Chloride Carbon Dioxide BUN Creatinine Glucose POC Glucose 188 H 106 H 119 H Lactic Acid Calcium Phosphorus Magnesium Direct Bilirubin AST ALT Alkaline Phosphatase Lactate Dehydrogenase Troponin T C-Reactive Protein Total Protein Albumin Prealbumin Triglycerides Cholesterol LDL Cholesterol Direct HDL Cholesterol Urine pH Urine WBC (Auto) Urine Creatinine Urine Total Protein Fluid Total Protein Vancomycin Trough Rheumatoid Factor Complement C4 Miscellaneous Test Crossmatch 12/12/16 12/12/16 12/12/16 05:00 06:01 12:20 WBC 16.7 H RBC 2.87 L Hgb 8.0 L Hct 24.2 L MCV MCH MCHC RDW 17.6 H Plt Count Lymph % (Auto) [place] % (Auto) Lymph # [place] # 1.2 H Baso # Seg Neutrophils % 75.3 H Seg Neuts % (Manual) Lymphocytes % (Manual) Monocytes % (Manual) Eosinophils % (Manual) Basophils % (Manual) Nucleated RBC % Seg Neutrophils # 12.6 H Seg Neutrophils # Man Lymphocytes # (Manual) Monocytes # (Manual) Eosinophils # (Manual) Basophils # (Manual) PT INR Fibrinogen dRVVT Confirm Interp Factor V Activity POC ABG pH POC ABG pCO2 POC ABG pO2 ABG pO2 ABG HCO3 ABG Base Excess ABG Hemoglobin Oxyhemoglobin Sodium Potassium Chloride Carbon Dioxide BUN Creatinine Glucose POC Glucose 134 H 149 H Lactic Acid Calcium Phosphorus Magnesium Direct Bilirubin AST ALT Alkaline Phosphatase Lactate Dehydrogenase Troponin T C-Reactive Protein Total Protein Albumin Prealbumin Triglycerides Cholesterol LDL Cholesterol Direct HDL Cholesterol Urine pH Urine WBC (Auto) Urine Creatinine Urine Total Protein Fluid Total Protein Vancomycin Trough Rheumatoid Factor Complement C4 Miscellaneous Test Crossmatch 12/12/16 12/12/16 12/12/16 17:38 23:01 Unknown WBC RBC Hgb Hct MCV MCH MCHC RDW Plt Count Lymph % (Auto) [place] % (Auto) Lymph # [place] # Baso # Seg Neutrophils % Seg Neuts % (Manual) Lymphocytes % (Manual) Monocytes % (Manual) Eosinophils % (Manual) Basophils % (Manual) Nucleated RBC % Seg Neutrophils # Seg Neutrophils # Man Lymphocytes # (Manual) Monocytes # (Manual) Eosinophils # (Manual) Basophils # (Manual) PT INR Fibrinogen dRVVT Confirm Interp Factor V Activity POC ABG pH POC ABG pCO2 POC ABG pO2 ABG pO2 ABG HCO3 ABG Base Excess ABG Hemoglobin Oxyhemoglobin Sodium Potassium Chloride Carbon Dioxide BUN 60 H Creatinine 1.3 H Glucose 126 H POC Glucose 127 H 144 H Lactic Acid Calcium Phosphorus Magnesium Direct Bilirubin AST ALT Alkaline Phosphatase Lactate Dehydrogenase Troponin T C-Reactive Protein Total Protein Albumin Prealbumin Triglycerides Cholesterol LDL Cholesterol Direct HDL Cholesterol Urine pH Urine WBC (Auto) Urine Creatinine Urine Total Protein Fluid Total Protein Vancomycin Trough Rheumatoid Factor Complement C4 Miscellaneous Test Crossmatch 12/13/16 12/13/16 12/13/16 04:00 04:00 05:19 WBC 18.7 H RBC 2.89 L Hgb 8.3 L Hct 24.6 L MCV MCH MCHC RDW 17.5 H Plt Count Lymph % (Auto) [place] % (Auto) Lymph # [place] # 1.3 H Baso # Seg Neutrophils % 71.5 H Seg Neuts % (Manual) Lymphocytes % (Manual) Monocytes % (Manual) Eosinophils % (Manual) Basophils % (Manual) Nucleated RBC % Seg Neutrophils # 13.4 H Seg Neutrophils # Man Lymphocytes # (Manual) Monocytes # (Manual) Eosinophils # (Manual) Basophils # (Manual) PT INR Fibrinogen dRVVT Confirm Interp Factor V Activity POC ABG pH POC ABG pCO2 POC ABG pO2 ABG pO2 ABG HCO3 ABG Base Excess ABG Hemoglobin Oxyhemoglobin Sodium Potassium Chloride Carbon Dioxide BUN 73 H Creatinine 1.5 H Glucose 141 H POC Glucose 171 H Lactic Acid Calcium Phosphorus Magnesium Direct Bilirubin AST ALT Alkaline Phosphatase Lactate Dehydrogenase Troponin T C-Reactive Protein Total Protein Albumin Prealbumin Triglycerides Cholesterol LDL Cholesterol Direct HDL Cholesterol Urine pH Urine WBC (Auto) Urine Creatinine Urine Total Protein Fluid Total Protein Vancomycin Trough Rheumatoid Factor Complement C4 Miscellaneous Test Crossmatch 12/13/16 12/13/16 12/14/16 12:28 16:48 00:01 WBC RBC Hgb Hct MCV MCH MCHC RDW Plt Count Lymph % (Auto) [place] % (Auto) Lymph # [place] # Baso # Seg Neutrophils % Seg Neuts % (Manual) Lymphocytes % (Manual) Monocytes % (Manual) Eosinophils % (Manual) Basophils % (Manual) Nucleated RBC % Seg Neutrophils # Seg Neutrophils # Man Lymphocytes # (Manual) Monocytes # (Manual) Eosinophils # (Manual) Basophils # (Manual) PT INR Fibrinogen dRVVT Confirm Interp Factor V Activity POC ABG pH POC ABG pCO2 POC ABG pO2 ABG pO2 ABG HCO3 ABG Base Excess ABG Hemoglobin Oxyhemoglobin Sodium Potassium Chloride Carbon Dioxide BUN Creatinine Glucose POC Glucose 206 H 173 H 139 H Lactic Acid Calcium Phosphorus Magnesium Direct Bilirubin AST ALT Alkaline Phosphatase Lactate Dehydrogenase Troponin T C-Reactive Protein Total Protein Albumin Prealbumin Triglycerides Cholesterol LDL Cholesterol Direct HDL Cholesterol Urine pH Urine WBC (Auto) Urine Creatinine Urine Total Protein Fluid Total Protein Vancomycin Trough Rheumatoid Factor Complement C4 Miscellaneous Test Crossmatch 12/14/16 12/14/16 12/14/16 05:16 06:10 11:17 WBC RBC Hgb Hct MCV MCH MCHC RDW Plt Count Lymph % (Auto) [place] % (Auto) Lymph # [place] # Baso # Seg Neutrophils % Seg Neuts % (Manual) Lymphocytes % (Manual) Monocytes % (Manual) Eosinophils % (Manual) Basophils % (Manual) Nucleated RBC % Seg Neutrophils # Seg Neutrophils # Man Lymphocytes # (Manual) Monocytes # (Manual) Eosinophils # (Manual) Basophils # (Manual) PT INR Fibrinogen dRVVT Confirm Interp Factor V Activity POC ABG pH POC ABG pCO2 POC ABG pO2 ABG pO2 ABG HCO3 ABG Base Excess ABG Hemoglobin Oxyhemoglobin Sodium Potassium Chloride Carbon Dioxide BUN 57 H Creatinine 1.4 H Glucose 135 H POC Glucose 158 H 137 H Lactic Acid Calcium Phosphorus Magnesium Direct Bilirubin AST ALT Alkaline Phosphatase Lactate Dehydrogenase Troponin T C-Reactive Protein Total Protein Albumin Prealbumin Triglycerides Cholesterol LDL Cholesterol Direct HDL Cholesterol Urine pH Urine WBC (Auto) Urine Creatinine Urine Total Protein Fluid Total Protein Vancomycin Trough Rheumatoid Factor Complement C4 Miscellaneous Test Crossmatch 12/14/16 12/14/16 12/15/16 17:52 23:27 04:00 WBC RBC Hgb Hct MCV MCH MCHC RDW Plt Count Lymph % (Auto) [place] [place] % (Auto) Lymph # [place] # Baso # Seg Neutrophils % Seg Neuts % (Manual) Lymphocytes % (Manual) Monocytes % (Manual) Eosinophils % (Manual) Basophils % (Manual) Nucleated RBC % Seg Neutrophils # Seg Neutrophils # Man Lymphocytes # (Manual) Monocytes # (Manual) Eosinophils # (Manual) Basophils # (Manual) PT INR Fibrinogen dRVVT Confirm Interp Factor V Activity POC ABG pH POC ABG pCO2 POC ABG pO2 ABG pO2 ABG HCO3 ABG Base Excess ABG Hemoglobin Oxyhemoglobin Sodium Potassium Chloride 97.9 L Carbon Dioxide BUN 75 H Creatinine 1.6 H Glucose 122 H POC Glucose 149 H 163 H Lactic Acid Calcium Phosphorus 5.20 H Magnesium Direct Bilirubin AST ALT Alkaline Phosphatase Lactate Dehydrogenase Troponin T C-Reactive Protein Total Protein Albumin Prealbumin Triglycerides Cholesterol LDL Cholesterol Direct HDL Cholesterol Urine pH Urine WBC (Auto) Urine Creatinine Urine Total Protein Fluid Total Protein Vancomycin Trough Rheumatoid Factor Complement C4 Miscellaneous Test Crossmatch 12/15/16 12/15/16 12/15/16 05:50 11:24 17:01 WBC RBC Hgb Hct MCV MCH MCHC RDW Plt Count Lymph % (Auto) [place] % (Auto) Lymph # [place] # Baso # Seg Neutrophils % Seg Neuts % (Manual) Lymphocytes % (Manual) Monocytes % (Manual) Eosinophils % (Manual) Basophils % (Manual) Nucleated RBC % Seg Neutrophils # Seg Neutrophils # Man Lymphocytes # (Manual) Monocytes # (Manual) Eosinophils # (Manual) Basophils # (Manual) PT INR Fibrinogen dRVVT Confirm Interp Factor V Activity POC ABG pH POC ABG pCO2 POC ABG pO2 ABG pO2 ABG HCO3 ABG Base Excess ABG Hemoglobin Oxyhemoglobin Sodium Potassium Chloride Carbon Dioxide BUN Creatinine Glucose POC Glucose 150 H 146 H 167 H Lactic Acid Calcium Phosphorus Magnesium Direct Bilirubin AST ALT Alkaline Phosphatase Lactate Dehydrogenase Troponin T C-Reactive Protein Total Protein Albumin Prealbumin Triglycerides Cholesterol LDL Cholesterol Direct HDL Cholesterol Urine pH Urine WBC (Auto) Urine Creatinine Urine Total Protein Fluid Total Protein Vancomycin Trough Rheumatoid Factor Complement C4 Miscellaneous Test Crossmatch 12/15/16 12/16/16 12/16/16 23:34 05:25 11:24 WBC RBC Hgb Hct MCV MCH MCHC RDW Plt Count Lymph % (Auto) [place] % (Auto) Lymph # [place] # Baso # Seg Neutrophils % Seg Neuts % (Manual) Lymphocytes % (Manual) Monocytes % (Manual) Eosinophils % (Manual) Basophils % (Manual) Nucleated RBC % Seg Neutrophils # Seg Neutrophils # Man Lymphocytes # (Manual) Monocytes # (Manual) Eosinophils # (Manual) Basophils # (Manual) PT INR Fibrinogen dRVVT Confirm Interp Factor V Activity POC ABG pH POC ABG pCO2 POC ABG pO2 ABG pO2 ABG HCO3 ABG Base Excess ABG Hemoglobin Oxyhemoglobin Sodium Potassium Chloride Carbon Dioxide BUN Creatinine Glucose POC Glucose 127 H 139 H 165 H Lactic Acid Calcium Phosphorus Magnesium Direct Bilirubin AST ALT Alkaline Phosphatase Lactate Dehydrogenase Troponin T C-Reactive Protein Total Protein Albumin Prealbumin Triglycerides Cholesterol LDL Cholesterol Direct HDL Cholesterol Urine pH Urine WBC (Auto) Urine Creatinine Urine Total Protein Fluid Total Protein Vancomycin Trough Rheumatoid Factor Complement C4 Miscellaneous Test Crossmatch 12/16/16 12/16/16 12/16/16 15:30 16:25 17:31 WBC 17.8 H RBC 2.38 L Hgb 6.4 L Hct 20.3 L MCV MCH 27 L MCHC RDW 17.4 H Plt Count Lymph % (Auto) [place] % (Auto) Lymph # [place] # Baso # Seg Neutrophils % Seg Neuts % (Manual) Lymphocytes % (Manual) Monocytes % (Manual) 10.0 H Eosinophils % (Manual) Basophils % (Manual) Nucleated RBC % Seg Neutrophils # Seg Neutrophils # Man 8.5 H Lymphocytes # (Manual) Monocytes # (Manual) 1.8 H Eosinophils # (Manual) Basophils # (Manual) PT INR Fibrinogen dRVVT Confirm Interp Factor V Activity POC ABG pH POC ABG pCO2 POC ABG pO2 ABG pO2 ABG HCO3 ABG Base Excess ABG Hemoglobin Oxyhemoglobin Sodium Potassium Chloride Carbon Dioxide BUN Creatinine Glucose POC Glucose 176 H Lactic Acid Calcium Phosphorus Magnesium Direct Bilirubin AST ALT Alkaline Phosphatase Lactate Dehydrogenase Troponin T C-Reactive Protein Total Protein Albumin Prealbumin Triglycerides Cholesterol LDL Cholesterol Direct HDL Cholesterol Urine pH Urine WBC (Auto) Urine Creatinine Urine Total Protein Fluid Total Protein Vancomycin Trough Rheumatoid Factor Complement C4 Miscellaneous Test Crossmatch See Detail 12/17/16 12/17/16 12/17/16 00:14 04:00 05:00 WBC 20.0 H RBC 2.99 L Hgb 8.5 L Hct 25.7 L MCV MCH MCHC RDW 17.2 H Plt Count Lymph % (Auto) [place] % (Auto) Lymph # [place] # Baso # Seg Neutrophils % Seg Neuts % (Manual) Lymphocytes % (Manual) Monocytes % (Manual) Eosinophils % (Manual) Basophils % (Manual) Nucleated RBC % Seg Neutrophils # Seg Neutrophils # Man Lymphocytes # (Manual) Monocytes # (Manual) Eosinophils # (Manual) Basophils # (Manual) PT INR Fibrinogen dRVVT Confirm Interp Factor V Activity POC ABG pH POC ABG pCO2 POC ABG pO2 ABG pO2 ABG HCO3 ABG Base Excess ABG Hemoglobin Oxyhemoglobin Sodium Potassium Chloride 97.7 L Carbon Dioxide BUN 73 H Creatinine 1.7 H Glucose 136 H POC Glucose 148 H Lactic Acid Calcium Phosphorus 2.20 L Magnesium 2.70 H Direct Bilirubin AST ALT Alkaline Phosphatase Lactate Dehydrogenase Troponin T C-Reactive Protein Total Protein Albumin Prealbumin Triglycerides Cholesterol LDL Cholesterol Direct HDL Cholesterol Urine pH Urine WBC (Auto) Urine Creatinine Urine Total Protein Fluid Total Protein Vancomycin Trough Rheumatoid Factor Complement C4 Miscellaneous Test Crossmatch 12/17/16 12/17/16 12/17/16 05:39 12:50 16:32 WBC RBC Hgb Hct MCV MCH MCHC RDW Plt Count Lymph % (Auto) [place] % (Auto) Lymph # [place] # Baso # Seg Neutrophils % Seg Neuts % (Manual) Lymphocytes % (Manual) Monocytes % (Manual) Eosinophils % (Manual) Basophils % (Manual) Nucleated RBC % Seg Neutrophils # Seg Neutrophils # Man Lymphocytes # (Manual) Monocytes # (Manual) Eosinophils # (Manual) Basophils # (Manual) PT INR Fibrinogen dRVVT Confirm Interp Factor V Activity POC ABG pH POC ABG pCO2 POC ABG pO2 ABG pO2 ABG HCO3 ABG Base Excess ABG Hemoglobin Oxyhemoglobin Sodium Potassium Chloride Carbon Dioxide BUN Creatinine Glucose POC Glucose 162 H 146 H 169 H Lactic Acid Calcium Phosphorus Magnesium Direct Bilirubin AST ALT Alkaline Phosphatase Lactate Dehydrogenase Troponin T C-Reactive Protein Total Protein Albumin Prealbumin Triglycerides Cholesterol LDL Cholesterol Direct HDL Cholesterol Urine pH Urine WBC (Auto) Urine Creatinine Urine Total Protein Fluid Total Protein Vancomycin Trough Rheumatoid Factor Complement C4 Miscellaneous Test Crossmatch 12/17/16 12/18/16 12/18/16 23:57 05:00 05:32 WBC RBC Hgb Hct MCV MCH MCHC RDW Plt Count Lymph % (Auto) [place] % (Auto) Lymph # [place] # Baso # Seg Neutrophils % Seg Neuts % (Manual) Lymphocytes % (Manual) Monocytes % (Manual) Eosinophils % (Manual) Basophils % (Manual) Nucleated RBC % Seg Neutrophils # Seg Neutrophils # Man Lymphocytes # (Manual) Monocytes # (Manual) Eosinophils # (Manual) Basophils # (Manual) PT INR Fibrinogen dRVVT Confirm Interp Factor V Activity POC ABG pH POC ABG pCO2 POC ABG pO2 ABG pO2 ABG HCO3 ABG Base Excess ABG Hemoglobin Oxyhemoglobin Sodium Potassium Chloride 97.0 L Carbon Dioxide BUN 63 H Creatinine 1.4 H Glucose 174 H POC Glucose 145 H 201 H Lactic Acid Calcium Phosphorus 1.70 L D Magnesium Direct Bilirubin AST ALT Alkaline Phosphatase 257 H Lactate Dehydrogenase Troponin T C-Reactive Protein Total Protein 5.9 L Albumin 1.8 L Prealbumin Triglycerides Cholesterol LDL Cholesterol Direct HDL Cholesterol Urine pH Urine WBC (Auto) Urine Creatinine Urine Total Protein Fluid Total Protein Vancomycin Trough Rheumatoid Factor Complement C4 Miscellaneous Test Crossmatch 12/18/16 12/18/16 12/18/16 11:43 16:52 23:52 WBC RBC Hgb Hct MCV MCH MCHC RDW Plt Count Lymph % (Auto) [place] % (Auto) Lymph # [place] # Baso # Seg Neutrophils % Seg Neuts % (Manual) Lymphocytes % (Manual) Monocytes % (Manual) Eosinophils % (Manual) Basophils % (Manual) Nucleated RBC % Seg Neutrophils # Seg Neutrophils # Man Lymphocytes # (Manual) Monocytes # (Manual) Eosinophils # (Manual) Basophils # (Manual) PT INR Fibrinogen dRVVT Confirm Interp Factor V Activity POC ABG pH POC ABG pCO2 POC ABG pO2 ABG pO2 ABG HCO3 ABG Base Excess ABG Hemoglobin Oxyhemoglobin Sodium Potassium Chloride Carbon Dioxide BUN Creatinine Glucose POC Glucose 177 H 110 H 162 H Lactic Acid Calcium Phosphorus Magnesium Direct Bilirubin AST ALT Alkaline Phosphatase Lactate Dehydrogenase Troponin T C-Reactive Protein Total Protein Albumin Prealbumin Triglycerides Cholesterol LDL Cholesterol Direct HDL Cholesterol Urine pH Urine WBC (Auto) Urine Creatinine Urine Total Protein Fluid Total Protein Vancomycin Trough Rheumatoid Factor Complement C4 Miscellaneous Test Crossmatch 12/19/16 12/19/16 12/19/16 05:02 05:24 09:30 WBC 20.1 H RBC 2.73 L Hgb 7.6 L Hct 23.6 L MCV MCH MCHC RDW 17.6 H Plt Count Lymph % (Auto) [place] % (Auto) Lymph # [place] # Baso # Seg Neutrophils % Seg Neuts % (Manual) Lymphocytes % (Manual) 13.0 L Monocytes % (Manual) Eosinophils % (Manual) Basophils % (Manual) Nucleated RBC % 1.0 H Seg Neutrophils # Seg Neutrophils # Man 12.9 H Lymphocytes # (Manual) Monocytes # (Manual) 1.4 H Eosinophils # (Manual) Basophils # (Manual) 0.2 H PT INR Fibrinogen dRVVT Confirm Interp Factor V Activity POC ABG pH POC ABG pCO2 POC ABG pO2 ABG pO2 ABG HCO3 ABG Base Excess ABG Hemoglobin Oxyhemoglobin Sodium Potassium Chloride 97.8 L Carbon Dioxide BUN 84 H Creatinine 1.6 H Glucose 133 H POC Glucose 134 H Lactic Acid Calcium Phosphorus Magnesium Direct Bilirubin AST ALT Alkaline Phosphatase Lactate Dehydrogenase Troponin T C-Reactive Protein Total Protein Albumin Prealbumin Triglycerides Cholesterol LDL Cholesterol Direct HDL Cholesterol Urine pH Urine WBC (Auto) Urine Creatinine Urine Total Protein Fluid Total Protein Vancomycin Trough Rheumatoid Factor Complement C4 Miscellaneous Test Crossmatch 12/19/16 12/19/16 12/19/16 09:36 11:12 18:29 WBC RBC Hgb Hct MCV MCH MCHC RDW Plt Count Lymph % (Auto) [place] % (Auto) Lymph # [place] # Baso # Seg Neutrophils % Seg Neuts % (Manual) Lymphocytes % (Manual) Monocytes % (Manual) Eosinophils % (Manual) Basophils % (Manual) Nucleated RBC % Seg Neutrophils # Seg Neutrophils # Man Lymphocytes # (Manual) Monocytes # (Manual) Eosinophils # (Manual) Basophils # (Manual) PT INR Fibrinogen dRVVT Confirm Interp Factor V Activity POC ABG pH 7.503 H POC ABG pCO2 30.1 L POC ABG pO2 ABG pO2 ABG HCO3 ABG Base Excess ABG Hemoglobin Oxyhemoglobin Sodium Potassium Chloride Carbon Dioxide BUN Creatinine Glucose POC Glucose 138 H 156 H Lactic Acid Calcium Phosphorus Magnesium Direct Bilirubin AST ALT Alkaline Phosphatase Lactate Dehydrogenase Troponin T C-Reactive Protein Total Protein Albumin Prealbumin Triglycerides Cholesterol LDL Cholesterol Direct HDL Cholesterol Urine pH Urine WBC (Auto) Urine Creatinine Urine Total Protein Fluid Total Protein Vancomycin Trough Rheumatoid Factor Complement C4 Miscellaneous Test Crossmatch 12/20/16 12/20/16 12/20/16 00:03 06:17 07:07 WBC RBC Hgb Hct MCV MCH MCHC RDW Plt Count Lymph % (Auto) [place] % (Auto) Lymph # [place] # Baso # Seg Neutrophils % Seg Neuts % (Manual) Lymphocytes % (Manual) Monocytes % (Manual) Eosinophils % (Manual) Basophils % (Manual) Nucleated RBC % Seg Neutrophils # Seg Neutrophils # Man Lymphocytes # (Manual) Monocytes # (Manual) Eosinophils # (Manual) Basophils # (Manual) PT INR Fibrinogen dRVVT Confirm Interp Factor V Activity POC ABG pH POC ABG pCO2 POC ABG pO2 ABG pO2 ABG HCO3 ABG Base Excess ABG Hemoglobin Oxyhemoglobin Sodium Potassium Chloride 97.1 L Carbon Dioxide 20 L BUN 97 H Creatinine 1.8 H Glucose 153 H POC Glucose 152 H 175 H Lactic Acid Calcium Phosphorus Magnesium Direct Bilirubin AST ALT Alkaline Phosphatase Lactate Dehydrogenase Troponin T C-Reactive Protein Total Protein Albumin Prealbumin Triglycerides Cholesterol LDL Cholesterol Direct HDL Cholesterol Urine pH Urine WBC (Auto) Urine Creatinine Urine Total Protein Fluid Total Protein Vancomycin Trough Rheumatoid Factor Complement C4 Miscellaneous Test Crossmatch 12/20/16 12/20/16 12/20/16 12:00 17:42 23:53 WBC RBC Hgb Hct MCV MCH MCHC RDW Plt Count Lymph % (Auto) [place] % (Auto) Lymph # [place] # Baso # Seg Neutrophils % Seg Neuts % (Manual) Lymphocytes % (Manual) Monocytes % (Manual) Eosinophils % (Manual) Basophils % (Manual) Nucleated RBC % Seg Neutrophils # Seg Neutrophils # Man Lymphocytes # (Manual) Monocytes # (Manual) Eosinophils # (Manual) Basophils # (Manual) PT INR Fibrinogen dRVVT Confirm Interp Factor V Activity POC ABG pH POC ABG pCO2 POC ABG pO2 ABG pO2 ABG HCO3 ABG Base Excess ABG Hemoglobin Oxyhemoglobin Sodium Potassium Chloride Carbon Dioxide BUN Creatinine Glucose POC Glucose 141 H 156 H 132 H Lactic Acid Calcium Phosphorus Magnesium Direct Bilirubin AST ALT Alkaline Phosphatase Lactate Dehydrogenase Troponin T C-Reactive Protein Total Protein Albumin Prealbumin Triglycerides Cholesterol LDL Cholesterol Direct HDL Cholesterol Urine pH Urine WBC (Auto) Urine Creatinine Urine Total Protein Fluid Total Protein Vancomycin Trough Rheumatoid Factor Complement C4 Miscellaneous Test Crossmatch 12/21/16 12/21/16 12/21/16 05:49 08:50 12:19 WBC RBC Hgb Hct MCV MCH MCHC RDW Plt Count Lymph % (Auto) [place] % (Auto) Lymph # [place] # Baso # Seg Neutrophils % Seg Neuts % (Manual) Lymphocytes % (Manual) Monocytes % (Manual) Eosinophils % (Manual) Basophils % (Manual) Nucleated RBC % Seg Neutrophils # Seg Neutrophils # Man Lymphocytes # (Manual) Monocytes # (Manual) Eosinophils # (Manual) Basophils # (Manual) PT INR Fibrinogen dRVVT Confirm Interp Factor V Activity POC ABG pH POC ABG pCO2 POC ABG pO2 ABG pO2 ABG HCO3 ABG Base Excess ABG Hemoglobin Oxyhemoglobin Sodium Potassium 5.2 H D Chloride Carbon Dioxide BUN 63 H Creatinine Glucose 122 H POC Glucose 132 H 136 H Lactic Acid Calcium 8.3 L Phosphorus Magnesium Direct Bilirubin AST ALT Alkaline Phosphatase Lactate Dehydrogenase Troponin T C-Reactive Protein Total Protein Albumin Prealbumin Triglycerides Cholesterol LDL Cholesterol Direct HDL Cholesterol Urine pH Urine WBC (Auto) Urine Creatinine Urine Total Protein Fluid Total Protein Vancomycin Trough Rheumatoid Factor Complement C4 Miscellaneous Test Crossmatch 12/21/16 12/21/16 12/22/16 17:22 23:58 05:49 WBC RBC Hgb Hct MCV MCH MCHC RDW Plt Count Lymph % (Auto) [place] % (Auto) Lymph # [place] # Baso # Seg Neutrophils % Seg Neuts % (Manual) Lymphocytes % (Manual) Monocytes % (Manual) Eosinophils % (Manual) Basophils % (Manual) Nucleated RBC % Seg Neutrophils # Seg Neutrophils # Man Lymphocytes # (Manual) Monocytes # (Manual) Eosinophils # (Manual) Basophils # (Manual) PT INR Fibrinogen dRVVT Confirm Interp Factor V Activity POC ABG pH POC ABG pCO2 POC ABG pO2 ABG pO2 ABG HCO3 ABG Base Excess ABG Hemoglobin Oxyhemoglobin Sodium Potassium Chloride Carbon Dioxide BUN Creatinine Glucose POC Glucose 135 H 149 H 140 H Lactic Acid Calcium Phosphorus Magnesium Direct Bilirubin AST ALT Alkaline Phosphatase Lactate Dehydrogenase Troponin T C-Reactive Protein Total Protein Albumin Prealbumin Triglycerides Cholesterol LDL Cholesterol Direct HDL Cholesterol Urine pH Urine WBC (Auto) Urine Creatinine Urine Total Protein Fluid Total Protein Vancomycin Trough Rheumatoid Factor Complement C4 Miscellaneous Test Crossmatch 12/22/16 12/22/16 12/22/16 06:10 11:17 17:31 WBC RBC Hgb Hct MCV MCH MCHC RDW Plt Count Lymph % (Auto) [place] % (Auto) Lymph # [place] # Baso # Seg Neutrophils % Seg Neuts % (Manual) Lymphocytes % (Manual) Monocytes % (Manual) Eosinophils % (Manual) Basophils % (Manual) Nucleated RBC % Seg Neutrophils # Seg Neutrophils # Man Lymphocytes # (Manual) Monocytes # (Manual) Eosinophils # (Manual) Basophils # (Manual) PT INR Fibrinogen dRVVT Confirm Interp Factor V Activity POC ABG pH POC ABG pCO2 POC ABG pO2 ABG pO2 ABG HCO3 ABG Base Excess ABG Hemoglobin Oxyhemoglobin Sodium Potassium Chloride Carbon Dioxide BUN 76 H Creatinine 1.5 H Glucose 241 H POC Glucose 193 H 148 H Lactic Acid Calcium Phosphorus Magnesium Direct Bilirubin AST ALT Alkaline Phosphatase Lactate Dehydrogenase Troponin T C-Reactive Protein Total Protein Albumin Prealbumin Triglycerides Cholesterol LDL Cholesterol Direct HDL Cholesterol Urine pH Urine WBC (Auto) Urine Creatinine Urine Total Protein Fluid Total Protein Vancomycin Trough Rheumatoid Factor Complement C4 Miscellaneous Test Crossmatch 12/22/16 12/23/16 12/23/16 23:58 05:00 05:26 WBC RBC Hgb Hct MCV MCH MCHC RDW Plt Count Lymph % (Auto) [place] % (Auto) Lymph # [place] # Baso # Seg Neutrophils % Seg Neuts % (Manual) Lymphocytes % (Manual) Monocytes % (Manual) Eosinophils % (Manual) Basophils % (Manual) Nucleated RBC % Seg Neutrophils # Seg Neutrophils # Man Lymphocytes # (Manual) Monocytes # (Manual) Eosinophils # (Manual) Basophils # (Manual) PT INR Fibrinogen dRVVT Confirm Interp Factor V Activity POC ABG pH POC ABG pCO2 POC ABG pO2 ABG pO2 ABG HCO3 ABG Base Excess ABG Hemoglobin Oxyhemoglobin Sodium Potassium Chloride Carbon Dioxide BUN 49 H Creatinine Glucose 143 H POC Glucose 165 H 154 H Lactic Acid Calcium 8.2 L Phosphorus Magnesium 1.60 L Direct Bilirubin AST ALT Alkaline Phosphatase Lactate Dehydrogenase Troponin T C-Reactive Protein Total Protein Albumin Prealbumin Triglycerides Cholesterol LDL Cholesterol Direct HDL Cholesterol Urine pH Urine WBC (Auto) Urine Creatinine Urine Total Protein Fluid Total Protein Vancomycin Trough Rheumatoid Factor Complement C4 Miscellaneous Test Crossmatch 12/23/16 12/23/16 12/24/16 12:35 17:01 00:01 WBC RBC Hgb Hct MCV MCH MCHC RDW Plt Count Lymph % (Auto) [place] % (Auto) Lymph # [place] # Baso # Seg Neutrophils % Seg Neuts % (Manual) Lymphocytes % (Manual) Monocytes % (Manual) Eosinophils % (Manual) Basophils % (Manual) Nucleated RBC % Seg Neutrophils # Seg Neutrophils # Man Lymphocytes # (Manual) Monocytes # (Manual) Eosinophils # (Manual) Basophils # (Manual) PT INR Fibrinogen dRVVT Confirm Interp Factor V Activity POC ABG pH POC ABG pCO2 POC ABG pO2 ABG pO2 ABG HCO3 ABG Base Excess ABG Hemoglobin Oxyhemoglobin Sodium Potassium Chloride Carbon Dioxide BUN Creatinine Glucose POC Glucose 164 H 149 H 135 H Lactic Acid Calcium Phosphorus Magnesium Direct Bilirubin AST ALT Alkaline Phosphatase Lactate Dehydrogenase Troponin T C-Reactive Protein Total Protein Albumin Prealbumin Triglycerides Cholesterol LDL Cholesterol Direct HDL Cholesterol Urine pH Urine WBC (Auto) Urine Creatinine Urine Total Protein Fluid Total Protein Vancomycin Trough Rheumatoid Factor Complement C4 Miscellaneous Test Crossmatch 12/24/16 12/24/16 12/24/16 05:41 07:01 11:38 WBC RBC Hgb Hct MCV MCH MCHC RDW Plt Count Lymph % (Auto) [place] % (Auto) Lymph # [place] # Baso # Seg Neutrophils % Seg Neuts % (Manual) Lymphocytes % (Manual) Monocytes % (Manual) Eosinophils % (Manual) Basophils % (Manual) Nucleated RBC % Seg Neutrophils # Seg Neutrophils # Man Lymphocytes # (Manual) Monocytes # (Manual) Eosinophils # (Manual) Basophils # (Manual) PT INR Fibrinogen dRVVT Confirm Interp Factor V Activity POC ABG pH POC ABG pCO2 POC ABG pO2 ABG pO2 ABG HCO3 ABG Base Excess ABG Hemoglobin Oxyhemoglobin Sodium Potassium Chloride Carbon Dioxide BUN 72 H Creatinine 1.3 H Glucose 130 H POC Glucose 132 H 156 H Lactic Acid Calcium 8.2 L Phosphorus Magnesium Direct Bilirubin AST ALT Alkaline Phosphatase Lactate Dehydrogenase Troponin T C-Reactive Protein Total Protein Albumin Prealbumin Triglycerides Cholesterol LDL Cholesterol Direct HDL Cholesterol Urine pH Urine WBC (Auto) Urine Creatinine Urine Total Protein Fluid Total Protein Vancomycin Trough Rheumatoid Factor Complement C4 Miscellaneous Test Crossmatch 12/24/16 12/25/16 12/25/16 17:53 00:23 05:45 WBC RBC Hgb Hct MCV MCH MCHC RDW Plt Count Lymph % (Auto) [place] % (Auto) Lymph # [place] # Baso # Seg Neutrophils % Seg Neuts % (Manual) Lymphocytes % (Manual) Monocytes % (Manual) Eosinophils % (Manual) Basophils % (Manual) Nucleated RBC % Seg Neutrophils # Seg Neutrophils # Man Lymphocytes # (Manual) Monocytes # (Manual) Eosinophils # (Manual) Basophils # (Manual) PT INR Fibrinogen dRVVT Confirm Interp Factor V Activity POC ABG pH POC ABG pCO2 POC ABG pO2 ABG pO2 ABG HCO3 ABG Base Excess ABG Hemoglobin Oxyhemoglobin Sodium 146 H Potassium Chloride Carbon Dioxide BUN 51 H Creatinine Glucose 109 H POC Glucose 169 H 117 H Lactic Acid Calcium Phosphorus Magnesium Direct Bilirubin AST ALT Alkaline Phosphatase Lactate Dehydrogenase Troponin T C-Reactive Protein Total Protein Albumin Prealbumin Triglycerides Cholesterol LDL Cholesterol Direct HDL Cholesterol Urine pH Urine WBC (Auto) Urine Creatinine Urine Total Protein Fluid Total Protein Vancomycin Trough Rheumatoid Factor Complement C4 Miscellaneous Test Crossmatch 12/25/16 12/25/16 12/25/16 06:43 17:14 23:54 WBC RBC Hgb Hct MCV MCH MCHC RDW Plt Count Lymph % (Auto) [place] % (Auto) Lymph # [place] # Baso # Seg Neutrophils % Seg Neuts % (Manual) Lymphocytes % (Manual) Monocytes % (Manual) Eosinophils % (Manual) Basophils % (Manual) Nucleated RBC % Seg Neutrophils # Seg Neutrophils # Man Lymphocytes # (Manual) Monocytes # (Manual) Eosinophils # (Manual) Basophils # (Manual) PT INR Fibrinogen dRVVT Confirm Interp Factor V Activity POC ABG pH POC ABG pCO2 POC ABG pO2 ABG pO2 ABG HCO3 ABG Base Excess ABG Hemoglobin Oxyhemoglobin Sodium Potassium Chloride Carbon Dioxide BUN Creatinine Glucose POC Glucose 117 H 120 H 126 H Lactic Acid Calcium Phosphorus Magnesium Direct Bilirubin AST ALT Alkaline Phosphatase Lactate Dehydrogenase Troponin T C-Reactive Protein Total Protein Albumin Prealbumin Triglycerides Cholesterol LDL Cholesterol Direct HDL Cholesterol Urine pH Urine WBC (Auto) Urine Creatinine Urine Total Protein Fluid Total Protein Vancomycin Trough Rheumatoid Factor Complement C4 Miscellaneous Test Crossmatch 12/26/16 12/26/16 12/26/16 05:40 05:50 05:50 WBC 16.2 H RBC 2.32 L Hgb 6.2 L Hct 20.1 L MCV MCH 27 L MCHC RDW 18.6 H Plt Count Lymph % (Auto) [place] % (Auto) Lymph # [place] # Baso # Seg Neutrophils % Seg Neuts % (Manual) Lymphocytes % (Manual) Monocytes % (Manual) Eosinophils % (Manual) Basophils % (Manual) Nucleated RBC % Seg Neutrophils # Seg Neutrophils # Man Lymphocytes # (Manual) Monocytes # (Manual) Eosinophils # (Manual) Basophils # (Manual) PT INR Fibrinogen dRVVT Confirm Interp Factor V Activity POC ABG pH POC ABG pCO2 POC ABG pO2 ABG pO2 ABG HCO3 ABG Base Excess ABG Hemoglobin Oxyhemoglobin Sodium Potassium Chloride Carbon Dioxide BUN 73 H Creatinine 1.3 H Glucose 113 H POC Glucose 132 H Lactic Acid Calcium Phosphorus Magnesium Direct Bilirubin AST ALT Alkaline Phosphatase Lactate Dehydrogenase Troponin T C-Reactive Protein Total Protein Albumin Prealbumin Triglycerides Cholesterol LDL Cholesterol Direct HDL Cholesterol Urine pH Urine WBC (Auto) Urine Creatinine Urine Total Protein Fluid Total Protein Vancomycin Trough Rheumatoid Factor Complement C4 Miscellaneous Test Crossmatch Chest x-ray: image reviewed (persistent bilateral smal pleural effusions) Allied health notes reviewed: RT
[2016-12-26] MEDS ORDERED: NACL 0.9% 500 ML 500 ML IV ONE (11:27)
[2016-12-26] MEDS ORDERED: NACL 0.9% 250ML 250 ML ONE (14:03)
[2016-12-26] MEDS: TRANSDERM-SCOP TD SCH (14:04)
--- NOTE | 2016-12-26 15:20 | Progress Note ---
Assessment and Plan Assessment and plan: Patient is 46-year-old woman with a history of hypertension, diabetes, asthma, hyperlipidemia, chronic kidney disease and anxiety , who was brought in by family because, she couldn't get her words out, her face was also twisted, she was admitted for acute CVA and accelerated hypertension, she had a hx of poor adherence with her medications, and uncontrolled htn. Patient's SBP on admission was noted be greater than 260. TPA was started but this was discontinued after 5 minutes because her blood pressure became uncontrolled. The TPA was not initiated again because the patient was outside the TPA window. Status post cardiac arrest , 11/21/16 - Received CPR and was resuscitated. Fever - resolved - Antibiotic discontinued today per ID - s/p R thoracentesis on 11/14, 240cc of serous fluid removed, cx of fluid was negative - Stool negative for C. difficile Severe Sepsis with septic shock - Resolving Surgical wound infection/gram-negative sepsis/candidemia/peritonitis - PEG has been removed and pus is drained from the PEG site - Currently on tube feeding -continue wound care to ostomy sites JUANITA, ESRD - on HD per nephrology Acute CVA with infarct - Neurology input appreciated - CT shows continued evolution of left MCA infarct with slight mass effect and edema, and there is no hemorrhage - PRINCE showed hyperdynamic with ef of 75%, neither clot nor septal defect seen - MRA Brain shows near complete occlusion of M2 and M3 of the left MCA - Repeat CT scan done on 09/11, shows stable findings - carotid doppler negative - Echo shows preserved systolic function but does show some left ventricular diastolic dysfunction - continue asa and statin Persistent vegetative state - This patient's needs placement at SNF - She was denied for LTACH Acute hypoxic respiratory failure requiring MV >96hrs - Status post tracheostomy, was on T piece Nosocomial acquired aspiration pneumonia/sepsis/UTI - Recurrent - Finished a course of antibiotic Asthma/COPD exacerbation - ON trach, mechanical ventilation Status Post CVA Bilateral pleural effusion, s/p right thoracentesis A. fib with RVR Diabetes type 2. Continue sliding-scale regular insulin and Accu-Cheks. Hyperlipidemia. Continue statin Nutrition - continue tube feeds Anemia requiring multiple transfusions/acute blood loss - Hemoglobin this morning was 6.2 - We will transfuse 1 unit of blood, we will check H&H after transfusion Disposition. Very poor prognosis. The high probability of a clinically significant, sudden or life threatening deterioration of the [neurologic, CV] system(s) required my full and direct attention, intervention and personal management. The aggregate critical care time was [34] minutes. This time is in addition to time spent performing reported procedures but includes the following: [x] Data Review and interpretation [x] Patient assessment and monitoring of vital signs [x] Documentation [x] Medication orders and management History Interval history: Patient was seen and evaluated this morning, patient is in persistent vegetative state. Status post trach, dislodged PEG, fistulas on the skin around the stomach area. Hospitalist Physical - Physical exam Narrative exam: Patient is on mechanical ventilation Vital signs as documented. Head exam is unremarkable. No scleral icterus . Neck is without jugular venous distension, thyromegaly, or carotid bruits. Lungs are clear to auscultation. Cardiac exam reveals regular rate and Rhythm. First and second heart sounds normal. No murmurs, rubs or gallops. Abdominal exam reveals abscess draining from the PEG site, and multiple fistulas around the stomach. Extremities are nonedematous and both femoral and pedal pulses are normal. 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 - Constitutional Vitals: Temp Pulse Resp BP Pulse Ox 98.9 F 97 H 19 128/71 100 12/26/16 15:00 12/26/16 15:00 12/26/16 15:00 12/26/16 15:00 12/26/16 15:00 General appearance: Present: no acute distress, well-nourished, obese Results - Labs CBC & Chem 7: 12/26/16 05:50 12/26/16 05:50 Labs: Laboratory Last Values WBC 16.2 K/mm3 (4.5-11.0) H 12/26/16 05:50 RBC 2.32 M/mm3 (3.65-5.03) L 12/26/16 05:50 Hgb 6.2 gm/dl (10.1-14.3) L 12/26/16 05:50 Hct 20.1 % (30.3-42.9) L 12/26/16 05:50 MCV 85 fl (79-97) 12/26/16 05:50 MCH 27 pg (28-32) L 12/26/16 05:50 MCHC 32 % (30-34) 12/26/16 05:50 RDW 18.6 % (13.2-15.2) H 12/26/16 05:50 Plt Count 196 K/mm3 (140-440) 12/26/16 05:50 Lymph % (Auto) [employer] 12/19/16 05:02 [place] % (Auto) [employer] 12/19/16 05:02 Eos % (Auto) [employer] 12/19/16 05:02 Baso % (Auto) [employer] 12/19/16 05:02 Lymph # [employer] 12/19/16 05:02 [place] # [employer] 12/19/16 05:02 Eos # [employer] 12/19/16 05:02 Baso # [employer] 12/19/16 05:02 Add Manual Diff Complete 12/19/16 05:02 Total Counted 100 12/19/16 05:02 Seg Neutrophils % [employer] 12/19/16 05:02 Seg Neuts % (Manual) 64.0 % (40.0-70.0) 12/19/16 05:02 Band Neutrophils % 15.0 % 12/19/16 05:02 Lymphocytes % (Manual) 13.0 % (13.4-35.0) L 12/19/16 05:02 Reactive Lymphs % (Man) 0 % 12/19/16 05:02 Monocytes % (Manual) 7.0 % (0.0-7.3) 12/19/16 05:02 Eosinophils % (Manual) 0 % (0.0-4.3) 12/19/16 05:02 Basophils % (Manual) 1.0 % (0.0-1.8) 12/19/16 05:02 Metamyelocytes % 0 % 12/19/16 05:02 Myelocytes % 0 % 12/19/16 05:02 Promyelocytes % 0 % 12/19/16 05:02 Blast Cells % 0 % 12/19/16 05:02 Nucleated RBC % 1.0 % (0.0-0.9) H 12/19/16 05:02 Seg Neutrophils # [employer] 12/19/16 05:02 Seg Neutrophils # Man 12.9 K/mm3 (1.8-7.7) H 12/19/16 05:02 Band Neutrophils # 3.0 K/mm3 12/19/16 05:02 Lymphocytes # (Manual) 2.6 K/mm3 (1.2-5.4) 12/19/16 05:02 Abs React Lymphs (Man) 0.0 K/mm3 12/19/16 05:02 Monocytes # (Manual) 1.4 K/mm3 (0.0-0.8) H 12/19/16 05:02 Eosinophils # (Manual) 0.0 K/mm3 (0.0-0.4) 12/19/16 05:02 Basophils # (Manual) 0.2 K/mm3 (0.0-0.1) H 12/19/16 05:02 Metamyelocytes # 0.0 K/mm3 12/19/16 05:02 Myelocytes # 0.0 K/mm3 12/19/16 05:02 Promyelocytes # 0.0 K/mm3 12/19/16 05:02 Blast Cells # 0.0 K/mm3 12/19/16 05:02 Pathologist Review 09/13/16 04:00 WBC Morphology Not Reportable 12/19/16 05:02 Hypersegmented Neuts Not Reportable 12/19/16 05:02 Hyposegmented Neuts Not Reportable 12/19/16 05:02 Hypogranular Neuts Not Reportable 12/19/16 05:02 Smudge Cells Not Reportable 12/19/16 05:02 Toxic Granulation Not Reportable 12/19/16 05:02 Toxic Vacuolation Not Reportable 12/19/16 05:02 Dohle Bodies Not Reportable 12/19/16 05:02 Pelger-Huet Anomaly Not Reportable 12/19/16 05:02 Jasmina Rods Not Reportable 12/19/16 05:02 Platelet Estimate Consistent w auto 12/19/16 05:02 Clumped Platelets Not Reportable 12/19/16 05:02 Plt Clumps, EDTA Not Reportable 12/19/16 05:02 Large Platelets Not Reportable 12/19/16 05:02 Giant Platelets Not Reportable 12/19/16 05:02 Platelet Satelliting Not Reportable 12/19/16 05:02 Plt Morphology Comment Not Reportable 12/19/16 05:02 RBC Morphology Not Reportable 12/19/16 05:02 Dimorphic RBCs Not Reportable 12/19/16 05:02 Polychromasia Not Reportable 12/19/16 05:02 Hypochromasia Not Reportable 12/19/16 05:02 Poikilocytosis Not Reportable 12/19/16 05:02 Anisocytosis Not Reportable 12/19/16 05:02 Microcytosis Not Reportable 12/19/16 05:02 Macrocytosis Not Reportable 12/19/16 05:02 Spherocytes Not Reportable 12/19/16 05:02 Pappenheimer Bodies Not Reportable 12/19/16 05:02 Sickle Cells Not Reportable 12/19/16 05:02 Target Cells Few 12/19/16 05:02 Tear Drop Cells Not Reportable 12/19/16 05:02 Ovalocytes Not Reportable 12/19/16 05:02 Stomatocytes Rare 12/03/16 04:00 Helmet Cells Not Reportable 12/19/16 05:02 [place] Bodies Not Reportable 12/19/16 05:02 [place] Rings Not Reportable 12/19/16 05:02 [place] Cells Not Reportable 12/19/16 05:02 Bite Cells Not Reportable 12/19/16 05:02 Crenated Cell Not Reportable 12/19/16 05:02 Elliptocytes Not Reportable 12/19/16 05:02 Acanthocytes (Spur) Not Reportable 12/19/16 05:02 Rouleaux Not Reportable 12/19/16 05:02 Hemoglobin C Crystals Not Reportable 12/19/16 05:02 Schistocytes Not Reportable 12/19/16 05:02 Malaria parasites Not Reportable 12/19/16 05:02 ESR > 140.0 mm/Hr (0-20) 09/08/16 11:48 Jun Bodies Not Reportable 12/19/16 05:02 Hem Pathologist Commnt No 12/19/16 05:02 PT 16.8 Sec. (12.2-14.9) H 11/17/16 03:20 INR 1.37 (0.87-1.13) H 11/17/16 03:20 APTT 33.0 Sec. (24.2-36.6) 10/09/16 03:45 Thrombin Time 16.8 Sec. (15.1-19.6) 09/03/16 00:10 Fibrinogen 750 mg/dl (211-480) H 09/08/16 11:48 Lupus Anticoagulant see below 09/12/16 09:59 LA PTT Baseline See scanned report 09/12/16 09:59 dRVVT Confirm Interp Positive (Negative) H 09/12/16 09:59 dRVVT Screen 50:50 See scanned report 09/12/16 09:59 dRVVT Mix Interpret See scanned report 09/12/16 09:59 Protein C Antigen 122 % (70-140) 09/08/16 15:35 Free Protein S 97 % normal (50-147) 09/08/16 15:35 Total Protein S 109 % (70-140) 09/08/16 15:35 Antithrombin III Ag 100 % (80-120) 09/08/16 15:35 Heparin Anti-Xa, Unfract Negative (Negative) 09/29/16 13:35 Factor V Activity 182 % (65-150) H 09/08/16 15:35 POC ABG pH 7.503 (7.35-7.45) H 12/19/16 09:36 ABG pH 7.450 pH Units (7.350-7.450) 12/05/16 Unknown POC ABG pCO2 30.1 (35-45) L 12/19/16 09:36 ABG pCO2 29.6 mm Hg 12/05/16 Unknown POC ABG pO2 85 (80-105) 12/19/16 09:36 ABG pO2 75.2 mm Hg (80.0-90.0) L 12/05/16 Unknown POC ABG HCO3 23.6 12/19/16 09:36 ABG HCO3 20.1 mmol/L (20.0-26.0) 12/05/16 Unknown POC ABG Total CO2 25 12/19/16 09:36 POC ABG O2 Sat 97 12/19/16 09:36 ABG O2 Saturation 96.8 % (95.0-99.0) 12/05/16 Unknown ABG O2 Content 9.9 (0.0-44) 12/05/16 Unknown POC ABG Base Excess 1 12/19/16 09:36 ABG Base Excess -3.4 mmol/L (-2.0-3.0) L 12/05/16 Unknown ABG Hemoglobin 7.4 gm/dl (12.0-16.0) L 12/05/16 Unknown ABG Carboxyhemoglobin 1.8 % (0.0-5.0) 12/05/16 Unknown ABG Methemoglobin 0.6 % (0.0-1.5) 12/05/16 Unknown Oxyhemoglobin 94.5 % (95.0-99.0) L 12/05/16 Unknown FiO2 28 % 12/19/16 09:36 Sodium 144 mmol/L (137-145) 12/26/16 05:50 Potassium 3.9 mmol/L (3.6-5.0) 12/26/16 05:50 Chloride 105.3 mmol/L (98-107) 12/26/16 05:50 Carbon Dioxide 26 mmol/L (22-30) 12/26/16 05:50 Anion Gap 17 mmol/L 12/26/16 05:50 BUN 73 mg/dL (7-17) H 12/26/16 05:50 Creatinine 1.3 mg/dL (0.7-1.2) H 12/26/16 05:50 Estimated GFR 54 ml/min 12/26/16 05:50 BUN/Creatinine Ratio 56 % 12/26/16 05:50 Glucose 113 mg/dL (65-100) H 12/26/16 05:50 POC Glucose 132 (70-105) H 12/26/16 05:40 Osmolality 351 Mosm/kg 09/16/16 11:47 Lactic Acid 4.50 mmol/L (0.7-2.0) H* 09/28/16 07:25 Calcium 9.4 mg/dL (8.4-10.2) 12/26/16 05:50 Phosphorus 4.00 mg/dL (2.5-4.5) D 12/26/16 05:50 Magnesium 1.90 mg/dL (1.7-2.3) 12/26/16 05:50 Total Bilirubin 0.90 mg/dL (0.1-1.2) 12/18/16 05:00 Direct Bilirubin 0.3 mg/dL (0-0.2) H 10/10/16 05:00 Indirect Bilirubin 0.1 mg/dL 10/10/16 05:00 AST 34 units/L (5-40) 12/18/16 05:00 ALT 42 units/L (7-56) 12/18/16 05:00 Alkaline Phosphatase 257 units/L (35-129) H 12/18/16 05:00 Ammonia 27.0 umol/L (25-60) 09/07/16 08:37 Lactate Dehydrogenase 196 units/L (91-180) H 11/11/16 06:59 Total Creatine Kinase 121 units/L (30-135) 09/29/16 20:12 CK-MB (CK-2) < 1.0 ng/mL (0.0-4.0) 09/29/16 20:12 CK-MB (CK-2) Rel Index 0.8 (0-4) 09/29/16 20:12 Troponin T 0.204 ng/mL (0.00-0.029) H* 09/29/16 20:12 C-Reactive Protein 19.30 mg/dL (0.00-1.30) H 12/05/16 05:00 Total Protein 5.9 g/dL (6.3-8.2) L 12/18/16 05:00 Albumin 1.8 g/dL (3.9-5) L 12/18/16 05:00 Albumin/Globulin Ratio 0.4 % 12/18/16 05:00 Prealbumin 0.180 g/L (0.200-0.400) L 11/06/16 06:25 Triglycerides 137 mg/dL (2-149) 09/29/16 20:12 Cholesterol 31 mg/dL (50-199) L 09/29/16 20:12 LDL Cholesterol Direct 4 mg/dL (50-130) L 09/29/16 20:12 HDL Cholesterol 3 mg/dL (40-59) L 09/29/16 20:12 Cholesterol/HDL Ratio 10.33 % 09/29/16 20:12 Angiotensin Convert Enz See scanned report 09/08/16 11:48 Renin 0.99 ng/mL/h (0.25-5.82) 10/07/16 10:56 Aldosterone <1 ng/dL () 10/07/16 10:56 Aldosterone/Renin Dir see below 10/07/16 10:56 Serotonin Release Assay See scanned report 09/29/16 13:35 TSH 1.010 mlU/mL (0.270-4.200) 09/07/16 08:37 HCG, Qual Negative (Negative) 09/03/16 00:10 Urine Color Yellow (Yellow) 11/05/16 13:09 Urine Turbidity Clear (Clear) 11/05/16 13:09 Urine pH 9.0 (5.0-7.0) H 11/05/16 13:09 Ur Specific Balsam 1.011 (1.003-1.030) 11/05/16 13:09 Urine Protein 100 mg/dl mg/dL (Negative) 11/05/16 13:09 Urine Glucose (UA) Neg mg/dL (Negative) 11/05/16 13:09 Urine Ketones Neg mg/dL (Negative) 11/05/16 13:09 Urine Blood Neg (Negative) 11/05/16 13:09 Urine Nitrite Neg (Negative) 11/05/16 13:09 Urine Bilirubin Neg (Negative) 11/05/16 13:09 Urine Urobilinogen < 2.0 mg/dL (<2.0) 11/05/16 13:09 Ur Leukocyte Esterase Neg (Negative) 11/05/16 13:09 Urine WBC (Auto) 4.0 /HPF (0.0-6.0) 11/05/16 13:09 Urine RBC (Auto) 1.0 /HPF (0.0-6.0) 11/05/16 13:09 U Epithel Cells (Auto) 1.0 /HPF (0-13.0) 10/07/16 18:30 Urine Bacteria (Auto) 4+ /HPF (Negative) 11/05/16 13:09 Urine WBC Clumps 2+ /HPF 09/07/16 02:47 Hyaline Casts 4 /LPF 09/07/16 02:47 Urine Mucus Few /HPF 10/07/16 18:30 Urine Yeast (Budding) 3+ /HPF 10/07/16 18:30 Urine Eosinophils None seen (None Seen) 09/07/16 16:00 Urine Total Volume 950 11/12/16 10:18 Urine Creatinine 19.7 mg/dL (0.1-20.0) 11/12/16 10:18 Height (in) 65.0 inches 11/12/16 10:18 Weight (lb) 181.0 lbs 11/12/16 10:18 Creatinine Clearance 5 11/12/16 10:18 Urine Sodium 36 mEq/L 09/16/16 19:19 Urine Total Protein 16 mg/dL (5-11.8) H 09/16/16 19:19 Fluid Total Protein < 3.0 (15.0-45.0) L 11/10/16 14:20 Fluid LDH 123 11/10/16 14:20 Vancomycin Trough 2.3 ug/mL (5.0-20.0) L 09/21/16 13:00 Random Vancomycin 16.5 ug/mL (0-40.0) 11/28/16 09:45 Urine Opiates Screen Presumptive negative 09/03/16 15:11 Urine Methadone Screen Presumptive positive 09/03/16 15:11 Ur Barbiturates Screen Presumptive positive 09/03/16 15:11 Ur Phencyclidine Scrn Presumptive negative 09/03/16 15:11 Ur Amphetamines Screen Presumptive negative 09/03/16 15:11 U Benzodiazepines Scrn Presumptive negative 09/03/16 15:11 Urine Cocaine Screen Presumptive negative 09/03/16 15:11 U Marijuana (THC) Screen Presumptive positive 09/03/16 15:11 Drugs of Abuse Note Disclamer 09/03/16 15:11 Rheumatoid Factor 24 IU/ml (0-13) H 09/08/16 11:48 SAHIL Screen Negative (Negative) 09/07/16 09:20 Proteinase 3 (PR3) Ab <1.0 AI (<1.0) 09/07/16 09:20 Myeloperoxidase Ab <1.0 AI (<1.0) 09/07/16 09:20 Sjogren's Antibody <1.0 AI (<1.0) 09/08/16 15:35 Scl-70 Scleroderma Ab <1.0 AI (<1.0) 09/08/16 15:35 Centromere B Antibody <1.0 AI (<1.0) 09/08/16 12:02 Heparin-induced Plt Ab Negative (Negative) 09/29/16 13:35 UF Heparin High Dose 11 % Release 09/29/16 13:35 SUDHIR UFH Low Dose 0.1 6 % Release 09/29/16 13:35 SUDHIR UFH Low Dose 0.5 8 % Release 09/29/16 13:35 Cardiolipid IgG Ab <14 GPL (<=14) 09/12/16 09:59 Cardiolipid IgA Ab <11 APL (<=11) 09/12/16 09:59 Cardiolipid IgM Ab <12 MPL (<=12) 09/12/16 09:59 Complement C3 148 mg/dL (90-180) 09/07/16 09:20 Complement C4 58 mg/dL (16-47) H 09/07/16 09:20 RPR Nonreactive (Nonreactive) 09/08/16 11:48 Hepatitis A IgM Ab Non-reactive (NonReactive) 09/24/16 14:40 Hep Bs Antigen Non-reactive (Negative) 09/24/16 14:40 Hep B Core IgM Ab Non-reactive (NonReactive) 09/24/16 14:40 Hepatitis C Antibody Non-reactive (NonReactive) 09/24/16 14:40 HIV 1&2 Antibody Rapid Non react (Non React) 09/08/16 11:48 HIV P24 Antigen Non react (Non React) 09/08/16 11:48 Miscellaneous Test Flexitest 1 H 11/05/16 13:25 Blood Type A POSITIVE 12/26/16 12:33 Antibody Screen Negative 12/26/16 12:33 DELORIS Antibody Screen Negative 11/24/16 11:20 Crossmatch See Detail 12/26/16 12:33 Hemoglobin 6.2
[2016-12-26] MEDS ORDERED: TPN ADULT IV SCH (20:00)
[2016-12-26] MEDS ORDERED: INTRALIPID 20% 250 ML IV SCH (20:00)
[2016-12-26 20:13] LABS: Hematocrit 26.3 % (30.3-42.9); Hemoglobin 8.4 gm/dl (10.1-14.3)
[2016-12-27] MEDS: DUONEB *Not for PRN Use IH SCH ×4 (02:38→19:20)
[2016-12-27 05:36] LABS: Hematocrit 22.8 % (30.3-42.9); Hemoglobin 7.6 gm/dl (10.1-14.3)
[2016-12-27 06:01] LABS: Calcium 9.5 mg/dL (8.4-10.2)
[2016-12-27] MEDS: HumuLIN R SUB-Q SCH ×4 (06:35→18:09)
[2016-12-27] MEDS: LOPRESSOR PO SCH ×5 (06:38→23:07)
[2016-12-27] MEDS: APRESOLINE PO SCH ×3 (06:40→22:47)
--- NOTE | 2016-12-27 08:52 | Progress Note ---
Assessment and Plan Patient is 46-year-old woman with a history of hypertension, diabetes mellitus, asthma, hyperlipidemia, chronic kidney disease and anxiety, who was brought in by family because she couldn't get her words out, her face was also twisted, she was admitted for acute CVA and accelerated hypertension, she had a hx of poor adherence with her medications, and uncontrolled htn. Patient's SBP on admission was noted be greater than 260. TPA was started but this it was discontinued after 5 minutes because her blood pressure became uncontrolled. The TPA was not initiated again because the patient was outside the TPA window. Patient has had a prolonged hospital stay complicated with recurrent severe sepsis. Patient with most recent event also status post cardiac arrest on , with CPR and ROSC Acute on chronic Hypoxemic Respiratory Failure (now not tolerating spontaneous breathing trials) Sepsis with worsening leukocytosis and high grade fevers s/p tracheostomy Hypertension Atrial Fibrillation with RVR Acute encephalopathy s/p CVA Oropharyngeal dysphagia Enterococcal bacteremia Sacral Decubitus Ulcer- unstageable Anemia Obesity JUANITA now on hemodialysis Enteric Fistula - VAP bundle addressed -CXR to re-evaluate - continue NGT to LIS - continue wound care per WCT -For debridement of sacral dcubitus ulcer tomorrow - Vasopressor if MAP falls < 65mmHg - keep on with daily PSV trials and / or T-piece as tolerated - continue TPN administration (continue TPN; NPO except for meds) - continue airway clearance nd secretion management - continue to wean FiO2 for sats > 94% - continue antihypertensives and monitor hemodynamics closely - continue HD/UF per nephrology - continue to follow electrolytes and correct as necessary - continue GI & VTE prophylaxis .....she remains critically ill on life sustaining interventions including MVS and at risk for further deterioration including ...long term care social worker prognosis remains poor - Patient Problems (1) Acute respiratory failure with hypoxia Current Visit: Yes Status: Acute (2) Acute blood loss anemia Current Visit: Yes Status: Resolved (3) Acute CVA (cerebrovascular accident) Current Visit: Yes Status: Acute (4) Chronic renal insufficiency Current Visit: Yes Status: Acute Qualifiers: Chronic kidney disease stage: C (5) Uncontrolled hypertension Current Visit: Yes Status: Acute (6) Leukocytosis (leucocytosis) Current Visit: Yes Status: Acute Qualifiers: Leukocytosis type: leukemoid reaction Qualified Code(s): D72.823 - Leukemoid reaction (7) Dislodged gastrostomy tube Current Visit: Yes Status: Acute (8) Fungemia Current Visit: Yes Status: Resolved (9) Cardiopulmonary arrest with successful resuscitation Current Visit: Yes Status: Acute Subjective Principal diagnosis: Acute resp failure on MVS; S/P Acute CVA; Acute Encephalopathy; JUANITA Interval history: Seen and examined. Vitals, labs, medications, chart reviewed. On mechanical ventilatory support, very tachypnic with SBT, placed back on full support. Rested on full mechanical support overnight. Fevers overnight, s/p blood cultures. S/p PRBCs for anemia HgB<7g/dl Still has a gutierrez catheter. No further episodes of vomiting. HD today, has continued to tolerate it Plan for debridement of sacral decubitus ulcer in OR tomorrow. Discussed in interdisciplinary round-son and brother were here yesterday to visit. Case management trying to arrange family conference with 3 adult children so we can address goals of care. Objective - Exam Narrative Exam: Patient is on mechanical ventilation Vital signs as documented. Head exam is unremarkable. No scleral icterus . Neck is without jugular venous distension,s/p tracheostomy to ventilator Lungs are clear to auscultation. Cardiac exam reveals regular rate and Rhythm. First and second heart sounds normal. No murmurs, rubs or gallops. Abdominal exam reveals abscess draining from the PEG site, and multiple fistulas around the stomach. Extremities are non edematous and both femoral and pedal pulses are normal. Sacral decubitus ulcer. [employer]:awake, alert, not obeying commands Vital Signs - 12hr 12/26/16 12/26/16 12/26/16 21:00 21:15 21:30 Temperature Pulse Rate 108 H 111 H 107 H Pulse Rate [ Anterior Bilateral Throughout] Pulse Rate [ From Monitor] Respiratory 15 20 20 Rate Respiratory Rate [Anterior Bilateral Throughout] Blood Pressure 116/73 121/73 133/78 O2 Sat by Pulse 98 98 98 Oximetry O2 Sat by Pulse Oximetry [ Assessment] 12/26/16 12/26/16 12/26/16 21:45 22:00 22:04 Temperature Pulse Rate 107 H 108 H 108 H Pulse Rate [ Anterior Bilateral Throughout] Pulse Rate [ From Monitor] Respiratory 14 21 Rate Respiratory Rate [Anterior Bilateral Throughout] Blood Pressure 135/86 135/78 O2 Sat by Pulse 98 98 Oximetry O2 Sat by Pulse Oximetry [ Assessment] 12/26/16 12/26/16 12/26/16 22:15 22:31 22:45 Temperature Pulse Rate 112 H 110 H 109 H Pulse Rate [ Anterior Bilateral Throughout] Pulse Rate [ From Monitor] Respiratory 13 14 16 Rate Respiratory Rate [Anterior Bilateral Throughout] Blood Pressure 135/78 135/78 135/78 O2 Sat by Pulse 99 99 99 Oximetry O2 Sat by Pulse Oximetry [ Assessment] 12/26/16 12/26/16 12/26/16 23:00 23:01 23:15 Temperature 99.9 F H Pulse Rate 109 H 108 H Pulse Rate [ Anterior Bilateral Throughout] Pulse Rate [ From Monitor] Respiratory 12 13 Rate Respiratory Rate [Anterior Bilateral Throughout] Blood Pressure 135/78 135/78 O2 Sat by Pulse 98 98 Oximetry O2 Sat by Pulse Oximetry [ Assessment] 12/26/16 12/26/16 12/26/16 23:23 23:28 23:31 Temperature Pulse Rate 108 H Pulse Rate [ Anterior Bilateral Throughout] Pulse Rate [ From Monitor] Respiratory 22 Rate Respiratory Rate [Anterior Bilateral Throughout] Blood Pressure 135/78 135/78 O2 Sat by Pulse 99 99 Oximetry O2 Sat by Pulse 97 Oximetry [ Assessment] 12/26/16 12/26/16 12/27/16 23:37 23:45 00:00 Temperature Pulse Rate 109 H 108 H 106 H Pulse Rate [ Anterior Bilateral Throughout] Pulse Rate [ From Monitor] Respiratory 18 18 19 Rate Respiratory Rate [Anterior Bilateral Throughout] Blood Pressure 135/78 135/78 120/70 O2 Sat by Pulse 99 99 99 Oximetry O2 Sat by Pulse Oximetry [ Assessment] 12/27/16 12/27/16 12/27/16 00:15 00:31 00:45 Temperature Pulse Rate 108 H 109 H 109 H Pulse Rate [ Anterior Bilateral Throughout] Pulse Rate [ From Monitor] Respiratory 23 22 21 Rate Respiratory Rate [Anterior Bilateral Throughout] Blood Pressure 120/70 120/70 120/70 O2 Sat by Pulse 99 99 99 Oximetry O2 Sat by Pulse Oximetry [ Assessment] 12/27/16 12/27/16 12/27/16 01:01 01:15 01:31 Temperature Pulse Rate 113 H 110 H 111 H Pulse Rate [ Anterior Bilateral Throughout] Pulse Rate [ From Monitor] Respiratory 21 22 22 Rate Respiratory Rate [Anterior Bilateral Throughout] Blood Pressure 120/70 120/70 120/70 O2 Sat by Pulse 99 99 99 Oximetry O2 Sat by Pulse Oximetry [ Assessment] 12/27/16 12/27/16 12/27/16 01:45 02:00 02:15 Temperature Pulse Rate 114 H 113 H 114 H Pulse Rate [ 111 H Anterior Bilateral Throughout] Pulse Rate [ From Monitor] Respiratory 23 22 22 Rate Respiratory 21 Rate [Anterior Bilateral Throughout] Blood Pressure 120/70 118/72 118/72 O2 Sat by Pulse 99 99 99 Oximetry O2 Sat by Pulse Oximetry [ Assessment] 12/27/16 12/27/16 12/27/16 02:30 02:45 03:01 Temperature Pulse Rate 110 H 116 H 117 H Pulse Rate [ Anterior Bilateral Throughout] Pulse Rate [ From Monitor] Respiratory 22 30 H 26 H Rate Respiratory Rate [Anterior Bilateral Throughout] Blood Pressure 118/72 118/72 118/72 O2 Sat by Pulse 98 87 87 Oximetry O2 Sat by Pulse Oximetry [ Assessment] 12/27/16 12/27/16 12/27/16 03:11 03:15 03:31 Temperature 101.3 F H Pulse Rate 117 H 118 H Pulse Rate [ Anterior Bilateral Throughout] Pulse Rate [ From Monitor] Respiratory 25 H 25 H Rate Respiratory Rate [Anterior Bilateral Throughout] Blood Pressure 118/72 118/72 O2 Sat by Pulse 88 91 Oximetry O2 Sat by Pulse Oximetry [ Assessment] 12/27/16 12/27/16 12/27/16 03:45 04:00 04:14 Temperature Pulse Rate 114 H 115 H Pulse Rate [ Anterior Bilateral Throughout] Pulse Rate [ 116 H From Monitor] Respiratory 26 H 24 24 Rate Respiratory Rate [Anterior Bilateral Throughout] Blood Pressure 118/72 109/58 O2 Sat by Pulse 92 95 95 Oximetry O2 Sat by Pulse Oximetry [ Assessment] 12/27/16 12/27/16 12/27/16 04:15 04:31 04:45 Temperature Pulse Rate 112 H 114 H 115 H Pulse Rate [ Anterior Bilateral Throughout] Pulse Rate [ From Monitor] Respiratory 24 23 25 H Rate Respiratory Rate [Anterior Bilateral Throughout] Blood Pressure 109/58 109/58 109/58 O2 Sat by Pulse 95 96 97 Oximetry O2 Sat by Pulse Oximetry [ Assessment] 12/27/16 12/27/16 12/27/16 05:01 05:15 05:31 Temperature Pulse Rate 119 H 115 H 116 H Pulse Rate [ Anterior Bilateral Throughout] Pulse Rate [ From Monitor] Respiratory 25 H 24 24 Rate Respiratory Rate [Anterior Bilateral Throughout] Blood Pressure 109/58 109/58 109/58 O2 Sat by Pulse 97 97 97 Oximetry O2 Sat by Pulse Oximetry [ Assessment] 12/27/16 12/27/16 12/27/16 05:45 05:47 06:00 Temperature Pulse Rate 117 H 114 H 114 H Pulse Rate [ Anterior Bilateral Throughout] Pulse Rate [ From Monitor] Respiratory 24 23 Rate Respiratory Rate [Anterior Bilateral Throughout] Blood Pressure 109/58 109/58 122/67 O2 Sat by Pulse 96 96 98 Oximetry O2 Sat by Pulse Oximetry [ Assessment] 12/27/16 12/27/16 12/27/16 06:15 06:31 06:38 Temperature Pulse Rate 114 H 113 H 106 H Pulse Rate [ Anterior Bilateral Throughout] Pulse Rate [ From Monitor] Respiratory 23 23 Rate Respiratory Rate [Anterior Bilateral Throughout] Blood Pressure 122/67 122/67 120/70 O2 Sat by Pulse 97 97 Oximetry O2 Sat by Pulse Oximetry [ Assessment] 12/27/16 12/27/16 12/27/16 06:40 06:41 06:45 Temperature Pulse Rate 111 H 111 H 114 H Pulse Rate [ Anterior Bilateral Throughout] Pulse Rate [ From Monitor] Respiratory 24 Rate Respiratory Rate [Anterior Bilateral Throughout] Blood Pressure 122/67 122/67 122/67 O2 Sat by Pulse 98 Oximetry O2 Sat by Pulse Oximetry [ Assessment] 12/27/16 12/27/16 12/27/16 07:01 07:15 07:31 Temperature Pulse Rate 117 H 115 H 115 H Pulse Rate [ Anterior Bilateral Throughout] Pulse Rate [ From Monitor] Respiratory 23 23 23 Rate Respiratory Rate [Anterior Bilateral Throughout] Blood Pressure 122/67 122/67 122/67 O2 Sat by Pulse 98 98 98 Oximetry O2 Sat by Pulse Oximetry [ Assessment] 12/27/16 12/27/16 12/27/16 07:45 08:00 08:07 Temperature 99 F Pulse Rate 113 H 115 H 116 H Pulse Rate [ Anterior Bilateral Throughout] Pulse Rate [ From Monitor] Respiratory 23 22 Rate Respiratory Rate [Anterior Bilateral Throughout] Blood Pressure 122/67 128/73 128/73 O2 Sat by Pulse 98 99 99 Oximetry O2 Sat by Pulse Oximetry [ Assessment] 12/27/16 12/27/16 08:13 08:36 Temperature Pulse Rate Pulse Rate [ 117 H 122 H Anterior Bilateral Throughout] Pulse Rate [ From Monitor] Respiratory Rate Respiratory 21 27 H Rate [Anterior Bilateral Throughout] Blood Pressure O2 Sat by Pulse Oximetry O2 Sat by Pulse Oximetry [ Assessment] Constitutional: appears uncomfortable, other (not tracking) Eyes: non-icteric, other (tracheostomy tube in midline of neck) ENT: oropharynx moist, oropharyngeal exudate pre Neck: supple, no lymphadenopathy, no JVD, other (no thyromegaly) Effort: mildly labored Ascultation: Left: diminished breath sounds (base), Bilateral: clear, rales, rhonchi (and referred upper airway sounds) Percussion: Left: dull (base), Bilateral: not dull Cardiovascular: regular rate and rhythm, other (no rubs / murmurs) Gastrointestinal: hypoactive bowel sounds, soft, non-tender, non-distended, other (RLQ & LUQ stomas with colostomy bags) Integumentary: decubitus ulcer (sacral), other (no rash; no cellulitis; poor turgor) Extremities: no cyanosis, pulses normal, no ischemia or petechiae, edema (1+ bilaterally) Neurologic: pupils equal and round, unable to assess, other (encephalopathic) Psychiatric: other (unable to assess) CBC and BMP: 12/30/16 04:20 01/02/17 06:00 ABG, PT/INR, D-dimer: ABG POC ABG pH 7.503 (7.35-7.45) H 12/19/16 09:36 ABG pH 7.450 pH Units (7.350-7.450) 12/05/16 Unknown POC ABG pCO2 30.1 (35-45) L 12/19/16 09:36 ABG pCO2 29.6 mm Hg 12/05/16 Unknown POC ABG pO2 85 (80-105) 12/19/16 09:36 ABG pO2 75.2 mm Hg (80.0-90.0) L 12/05/16 Unknown POC ABG HCO3 23.6 12/19/16 09:36 POC ABG Total CO2 25 12/19/16 09:36 POC ABG O2 Sat 97 12/19/16 09:36 ABG O2 Saturation 96.8 % (95.0-99.0) 12/05/16 Unknown PT/INR, D-dimer PT 16.8 Sec. (12.2-14.9) H 11/17/16 03:20 INR 1.37 (0.87-1.13) H 11/17/16 03:20 Abnormal lab findings: Abnormal Labs 09/03/16 09/03/16 09/03/16 12:12 15:07 16:20 WBC RBC Hgb Hct MCV MCH MCHC RDW Plt Count Lymph % (Auto) [place] % (Auto) Lymph # [place] # Baso # Seg Neutrophils % Seg Neuts % (Manual) Lymphocytes % (Manual) Monocytes % (Manual) Eosinophils % (Manual) Basophils % (Manual) Nucleated RBC % Seg Neutrophils # Seg Neutrophils # Man Lymphocytes # (Manual) Monocytes # (Manual) Eosinophils # (Manual) Basophils # (Manual) PT INR Fibrinogen dRVVT Confirm Interp Factor V Activity POC ABG pH 7.452 H POC ABG pCO2 POC ABG pO2 ABG pO2 ABG HCO3 ABG Base Excess ABG Hemoglobin Oxyhemoglobin Sodium Potassium Chloride Carbon Dioxide BUN Creatinine Glucose POC Glucose 178 H Lactic Acid Calcium Phosphorus 2.20 L Magnesium 1.60 L Direct Bilirubin AST ALT Alkaline Phosphatase Lactate Dehydrogenase Troponin T C-Reactive Protein Total Protein Albumin Prealbumin Triglycerides Cholesterol LDL Cholesterol Direct HDL Cholesterol Urine pH Urine WBC (Auto) Urine Creatinine Urine Total Protein Fluid Total Protein Vancomycin Trough Rheumatoid Factor Complement C4 Miscellaneous Test Crossmatch 09/03/16 09/03/16 09/03/16 17:57 17:58 23:50 WBC RBC Hgb Hct MCV MCH MCHC RDW Plt Count Lymph % (Auto) [place] % (Auto) Lymph # [place] # Baso # Seg Neutrophils % Seg Neuts % (Manual) Lymphocytes % (Manual) Monocytes % (Manual) Eosinophils % (Manual) Basophils % (Manual) Nucleated RBC % Seg Neutrophils # Seg Neutrophils # Man Lymphocytes # (Manual) Monocytes # (Manual) Eosinophils # (Manual) Basophils # (Manual) PT INR Fibrinogen dRVVT Confirm Interp Factor V Activity POC ABG pH POC ABG pCO2 POC ABG pO2 ABG pO2 ABG HCO3 ABG Base Excess ABG Hemoglobin Oxyhemoglobin Sodium Potassium Chloride Carbon Dioxide BUN Creatinine Glucose POC Glucose 162 H 145 H Lactic Acid Calcium Phosphorus 2.30 L Magnesium Direct Bilirubin AST ALT Alkaline Phosphatase Lactate Dehydrogenase Troponin T C-Reactive Protein Total Protein Albumin Prealbumin Triglycerides Cholesterol LDL Cholesterol Direct HDL Cholesterol Urine pH Urine WBC (Auto) Urine Creatinine Urine Total Protein Fluid Total Protein Vancomycin Trough Rheumatoid Factor Complement C4 Miscellaneous Test Crossmatch 09/04/16 09/04/16 09/04/16 03:31 03:31 05:42 WBC RBC Hgb 9.7 L D Hct MCV 72 L MCH 23 L MCHC RDW 17.5 H Plt Count Lymph % (Auto) 11.1 L [place] % (Auto) Lymph # [place] # Baso # Seg Neutrophils % 84.3 H Seg Neuts % (Manual) Lymphocytes % (Manual) Monocytes % (Manual) Eosinophils % (Manual) Basophils % (Manual) Nucleated RBC % Seg Neutrophils # 8.9 H Seg Neutrophils # Man Lymphocytes # (Manual) Monocytes # (Manual) Eosinophils # (Manual) Basophils # (Manual) PT INR Fibrinogen dRVVT Confirm Interp Factor V Activity POC ABG pH POC ABG pCO2 POC ABG pO2 ABG pO2 ABG HCO3 ABG Base Excess ABG Hemoglobin Oxyhemoglobin Sodium 135 L Potassium 2.9 L* Chloride 97.2 L Carbon Dioxide 19 L BUN Creatinine 1.7 H Glucose 170 H POC Glucose 152 H Lactic Acid Calcium Phosphorus Magnesium Direct Bilirubin AST ALT Alkaline Phosphatase Lactate Dehydrogenase Troponin T C-Reactive Protein Total Protein Albumin Prealbumin Triglycerides 160 H Cholesterol LDL Cholesterol Direct HDL Cholesterol 31 L Urine pH Urine WBC (Auto) Urine Creatinine Urine Total Protein Fluid Total Protein Vancomycin Trough Rheumatoid Factor Complement C4 Miscellaneous Test Crossmatch 09/04/16 09/04/16 09/04/16 11:34 17:46 23:29 WBC RBC Hgb Hct MCV MCH MCHC RDW Plt Count Lymph % (Auto) [place] % (Auto) Lymph # [place] # Baso # Seg Neutrophils % Seg Neuts % (Manual) Lymphocytes % (Manual) Monocytes % (Manual) Eosinophils % (Manual) Basophils % (Manual) Nucleated RBC % Seg Neutrophils # Seg Neutrophils # Man Lymphocytes # (Manual) Monocytes # (Manual) Eosinophils # (Manual) Basophils # (Manual) PT INR Fibrinogen dRVVT Confirm Interp Factor V Activity POC ABG pH POC ABG pCO2 POC ABG pO2 ABG pO2 ABG HCO3 ABG Base Excess ABG Hemoglobin Oxyhemoglobin Sodium Potassium Chloride Carbon Dioxide BUN Creatinine Glucose POC Glucose 165 H 210 H 139 H Lactic Acid Calcium Phosphorus Magnesium Direct Bilirubin AST ALT Alkaline Phosphatase Lactate Dehydrogenase Troponin T C-Reactive Protein Total Protein Albumin Prealbumin Triglycerides Cholesterol LDL Cholesterol Direct HDL Cholesterol Urine pH Urine WBC (Auto) Urine Creatinine Urine Total Protein Fluid Total Protein Vancomycin Trough Rheumatoid Factor Complement C4 Miscellaneous Test Crossmatch 09/05/16 09/05/16 09/05/16 04:05 04:05 05:38 WBC RBC Hgb Hct MCV 76 L D MCH 23 L MCHC RDW 17.8 H Plt Count Lymph % (Auto) [place] % (Auto) Lymph # [place] # Baso # Seg Neutrophils % Seg Neuts % (Manual) Lymphocytes % (Manual) Monocytes % (Manual) Eosinophils % (Manual) Basophils % (Manual) Nucleated RBC % Seg Neutrophils # Seg Neutrophils # Man Lymphocytes # (Manual) Monocytes # (Manual) Eosinophils # (Manual) Basophils # (Manual) PT INR Fibrinogen dRVVT Confirm Interp Factor V Activity POC ABG pH POC ABG pCO2 POC ABG pO2 ABG pO2 ABG HCO3 ABG Base Excess ABG Hemoglobin Oxyhemoglobin Sodium 134 L Potassium Chloride Carbon Dioxide 18 L BUN Creatinine 1.8 H Glucose 192 H POC Glucose 175 H Lactic Acid Calcium Phosphorus Magnesium Direct Bilirubin AST ALT Alkaline Phosphatase Lactate Dehydrogenase Troponin T C-Reactive Protein Total Protein Albumin Prealbumin Triglycerides Cholesterol LDL Cholesterol Direct HDL Cholesterol Urine pH Urine WBC (Auto) Urine Creatinine Urine Total Protein Fluid Total Protein Vancomycin Trough Rheumatoid Factor Complement C4 Miscellaneous Test Crossmatch 09/05/16 09/05/16 09/05/16 11:38 17:48 23:22 WBC RBC Hgb Hct MCV MCH MCHC RDW Plt Count Lymph % (Auto) [place] % (Auto) Lymph # [place] # Baso # Seg Neutrophils % Seg Neuts % (Manual) Lymphocytes % (Manual) Monocytes % (Manual) Eosinophils % (Manual) Basophils % (Manual) Nucleated RBC % Seg Neutrophils # Seg Neutrophils # Man Lymphocytes # (Manual) Monocytes # (Manual) Eosinophils # (Manual) Basophils # (Manual) PT INR Fibrinogen dRVVT Confirm Interp Factor V Activity POC ABG pH POC ABG pCO2 POC ABG pO2 ABG pO2 ABG HCO3 ABG Base Excess ABG Hemoglobin Oxyhemoglobin Sodium Potassium Chloride Carbon Dioxide BUN Creatinine Glucose POC Glucose 164 H 186 H 195 H Lactic Acid Calcium Phosphorus Magnesium Direct Bilirubin AST ALT Alkaline Phosphatase Lactate Dehydrogenase Troponin T C-Reactive Protein Total Protein Albumin Prealbumin Triglycerides Cholesterol LDL Cholesterol Direct HDL Cholesterol Urine pH Urine WBC (Auto) Urine Creatinine Urine Total Protein Fluid Total Protein Vancomycin Trough Rheumatoid Factor Complement C4 Miscellaneous Test Crossmatch 09/06/16 09/06/16 09/06/16 04:12 05:59 07:32 WBC RBC Hgb Hct MCV MCH MCHC RDW Plt Count Lymph % (Auto) [place] % (Auto) Lymph # [place] # Baso # Seg Neutrophils % Seg Neuts % (Manual) Lymphocytes % (Manual) Monocytes % (Manual) Eosinophils % (Manual) Basophils % (Manual) Nucleated RBC % Seg Neutrophils # Seg Neutrophils # Man Lymphocytes # (Manual) Monocytes # (Manual) Eosinophils # (Manual) Basophils # (Manual) PT INR Fibrinogen dRVVT Confirm Interp Factor V Activity POC ABG pH 7.514 H POC ABG pCO2 29.1 L POC ABG pO2 72 L ABG pO2 ABG HCO3 ABG Base Excess ABG Hemoglobin Oxyhemoglobin Sodium 133 L Potassium 3.4 L Chloride 94.9 L Carbon Dioxide 19 L BUN 30 H Creatinine 2.1 H Glucose 139 H POC Glucose 146 H Lactic Acid Calcium Phosphorus Magnesium Direct Bilirubin AST ALT Alkaline Phosphatase Lactate Dehydrogenase Troponin T C-Reactive Protein Total Protein Albumin Prealbumin Triglycerides Cholesterol LDL Cholesterol Direct HDL Cholesterol Urine pH Urine WBC (Auto) Urine Creatinine Urine Total Protein Fluid Total Protein Vancomycin Trough Rheumatoid Factor Complement C4 Miscellaneous Test Crossmatch 09/06/16 09/06/16 09/06/16 11:57 17:58 19:02 WBC RBC Hgb Hct MCV MCH MCHC RDW Plt Count Lymph % (Auto) [place] % (Auto) Lymph # [place] # Baso # Seg Neutrophils % Seg Neuts % (Manual) Lymphocytes % (Manual) Monocytes % (Manual) Eosinophils % (Manual) Basophils % (Manual) Nucleated RBC % Seg Neutrophils # Seg Neutrophils # Man Lymphocytes # (Manual) Monocytes # (Manual) Eosinophils # (Manual) Basophils # (Manual) PT INR Fibrinogen dRVVT Confirm Interp Factor V Activity POC ABG pH 7.465 H POC ABG pCO2 32.0 L POC ABG pO2 ABG pO2 ABG HCO3 ABG Base Excess ABG Hemoglobin Oxyhemoglobin Sodium Potassium Chloride Carbon Dioxide BUN Creatinine Glucose POC Glucose 165 H 160 H Lactic Acid Calcium Phosphorus Magnesium Direct Bilirubin AST ALT Alkaline Phosphatase Lactate Dehydrogenase Troponin T C-Reactive Protein Total Protein Albumin Prealbumin Triglycerides Cholesterol LDL Cholesterol Direct HDL Cholesterol Urine pH Urine WBC (Auto) Urine Creatinine Urine Total Protein Fluid Total Protein Vancomycin Trough Rheumatoid Factor Complement C4 Miscellaneous Test Crossmatch 09/06/16 09/07/1617 23:45 02:47 02:47 WBC RBC Hgb Hct MCV MCH MCHC RDW Plt Count Lymph % (Auto) [place] % (Auto) Lymph # [place] # Baso # Seg Neutrophils % Seg Neuts % (Manual) Lymphocytes % (Manual) Monocytes % (Manual) Eosinophils % (Manual) Basophils % (Manual) Nucleated RBC % Seg Neutrophils # Seg Neutrophils # Man Lymphocytes # (Manual) Monocytes # (Manual) Eosinophils # (Manual) Basophils # (Manual) PT INR Fibrinogen dRVVT Confirm Interp Factor V Activity POC ABG pH POC ABG pCO2 POC ABG pO2 ABG pO2 ABG HCO3 ABG Base Excess ABG Hemoglobin Oxyhemoglobin Sodium Potassium Chloride Carbon Dioxide BUN Creatinine Glucose POC Glucose 204 H Lactic Acid Calcium Phosphorus Magnesium Direct Bilirubin AST ALT Alkaline Phosphatase Lactate Dehydrogenase Troponin T C-Reactive Protein Total Protein Albumin Prealbumin Triglycerides Cholesterol LDL Cholesterol Direct HDL Cholesterol Urine pH Urine WBC (Auto) 68.0 H Urine Creatinine 106.1 H Urine Total Protein Fluid Total Protein Vancomycin Trough Rheumatoid Factor Complement C4 Miscellaneous Test Crossmatch 09/07/16 09/07/16 09/07/16 04:50 06:19 06:39 WBC RBC Hgb Hct MCV MCH MCHC RDW Plt Count Lymph % (Auto) [place] % (Auto) Lymph # [place] # Baso # Seg Neutrophils % Seg Neuts % (Manual) Lymphocytes % (Manual) Monocytes % (Manual) Eosinophils % (Manual) Basophils % (Manual) Nucleated RBC % Seg Neutrophils # Seg Neutrophils # Man Lymphocytes # (Manual) Monocytes # (Manual) Eosinophils # (Manual) Basophils # (Manual) PT INR Fibrinogen dRVVT Confirm Interp Factor V Activity POC ABG pH 7.457 H POC ABG pCO2 32.1 L POC ABG pO2 76 L ABG pO2 ABG HCO3 ABG Base Excess ABG Hemoglobin Oxyhemoglobin Sodium 132 L Potassium Chloride 94.7 L Carbon Dioxide BUN 53 H Creatinine 2.9 H Glucose 151 H POC Glucose 149 H Lactic Acid Calcium Phosphorus Magnesium Direct Bilirubin AST ALT Alkaline Phosphatase Lactate Dehydrogenase Troponin T C-Reactive Protein Total Protein Albumin Prealbumin Triglycerides Cholesterol LDL Cholesterol Direct HDL Cholesterol Urine pH Urine WBC (Auto) Urine Creatinine Urine Total Protein Fluid Total Protein Vancomycin Trough Rheumatoid Factor Complement C4 Miscellaneous Test Crossmatch 09/07/16 09/07/16 09/07/16 09:20 11:43 11:43 WBC 19.4 H RBC Hgb 8.3 L Hct 26.4 L D MCV 72 L D MCH 22 L MCHC RDW 17.9 H Plt Count Lymph % (Auto) 8.5 L [place] % (Auto) Lymph # [place] # 1.0 H Baso # Seg Neutrophils % 85.8 H Seg Neuts % (Manual) Lymphocytes % (Manual) Monocytes % (Manual) Eosinophils % (Manual) Basophils % (Manual) Nucleated RBC % Seg Neutrophils # 16.6 H Seg Neutrophils # Man Lymphocytes # (Manual) Monocytes # (Manual) Eosinophils # (Manual) Basophils # (Manual) PT INR Fibrinogen dRVVT Confirm Interp Factor V Activity POC ABG pH POC ABG pCO2 POC ABG pO2 ABG pO2 ABG HCO3 ABG Base Excess ABG Hemoglobin Oxyhemoglobin Sodium 134 L Potassium Chloride 97.2 L Carbon Dioxide 20 L BUN 58 H Creatinine 2.9 H Glucose 147 H POC Glucose Lactic Acid Calcium Phosphorus 2.40 L Magnesium 2.40 H Direct Bilirubin AST ALT Alkaline Phosphatase Lactate Dehydrogenase Troponin T C-Reactive Protein Total Protein 5.8 L Albumin 2.2 L Prealbumin Triglycerides Cholesterol LDL Cholesterol Direct HDL Cholesterol Urine pH Urine WBC (Auto) Urine Creatinine Urine Total Protein Fluid Total Protein Vancomycin Trough Rheumatoid Factor Complement C4 58 H Miscellaneous Test Crossmatch 09/07/16 09/07/16 09/07/16 11:50 16:00 17:31 WBC RBC Hgb Hct MCV MCH MCHC RDW Plt Count Lymph % (Auto) [place] % (Auto) Lymph # [place] # Baso # Seg Neutrophils % Seg Neuts % (Manual) Lymphocytes % (Manual) Monocytes % (Manual) Eosinophils % (Manual) Basophils % (Manual) Nucleated RBC % Seg Neutrophils # Seg Neutrophils # Man Lymphocytes # (Manual) Monocytes # (Manual) Eosinophils # (Manual) Basophils # (Manual) PT INR Fibrinogen dRVVT Confirm Interp Factor V Activity POC ABG pH POC ABG pCO2 POC ABG pO2 158 H ABG pO2 ABG HCO3 ABG Base Excess ABG Hemoglobin Oxyhemoglobin Sodium Potassium Chloride Carbon Dioxide BUN Creatinine Glucose POC Glucose 175 H Lactic Acid Calcium Phosphorus Magnesium Direct Bilirubin AST ALT Alkaline Phosphatase Lactate Dehydrogenase Troponin T C-Reactive Protein Total Protein Albumin Prealbumin Triglycerides Cholesterol LDL Cholesterol Direct HDL Cholesterol Urine pH Urine WBC (Auto) Urine Creatinine 66.3 H Urine Total Protein Fluid Total Protein Vancomycin Trough Rheumatoid Factor Complement C4 Miscellaneous Test Crossmatch 09/07/16 09/08/16 09/08/16 23:50 05:46 06:18 WBC 17.8 H RBC 3.58 L Hgb 8.1 L Hct 25.5 L MCV 71 L MCH 23 L MCHC RDW 18.4 H Plt Count Lymph % (Auto) [place] % (Auto) Lymph # [place] # Baso # Seg Neutrophils % Seg Neuts % (Manual) 92.0 H Lymphocytes % (Manual) 6.0 L Monocytes % (Manual) Eosinophils % (Manual) Basophils % (Manual) Nucleated RBC % Seg Neutrophils # Seg Neutrophils # Man 16.4 H Lymphocytes # (Manual) 1.1 L Monocytes # (Manual) Eosinophils # (Manual) Basophils # (Manual) PT INR Fibrinogen dRVVT Confirm Interp Factor V Activity POC ABG pH POC ABG pCO2 34.3 L POC ABG pO2 71 L ABG pO2 ABG HCO3 ABG Base Excess ABG Hemoglobin Oxyhemoglobin Sodium Potassium Chloride Carbon Dioxide BUN Creatinine Glucose POC Glucose 216 H Lactic Acid Calcium Phosphorus Magnesium Direct Bilirubin AST ALT Alkaline Phosphatase Lactate Dehydrogenase Troponin T C-Reactive Protein Total Protein Albumin Prealbumin Triglycerides Cholesterol LDL Cholesterol Direct HDL Cholesterol Urine pH Urine WBC (Auto) Urine Creatinine Urine Total Protein Fluid Total Protein Vancomycin Trough Rheumatoid Factor Complement C4 Miscellaneous Test Crossmatch 09/08/16 09/08/16 09/08/16 06:18 06:51 10:55 WBC RBC Hgb Hct MCV MCH MCHC RDW Plt Count Lymph % (Auto) [place] % (Auto) Lymph # [place] # Baso # Seg Neutrophils % Seg Neuts % (Manual) Lymphocytes % (Manual) Monocytes % (Manual) Eosinophils % (Manual) Basophils % (Manual) Nucleated RBC % Seg Neutrophils # Seg Neutrophils # Man Lymphocytes # (Manual) Monocytes # (Manual) Eosinophils # (Manual) Basophils # (Manual) PT INR Fibrinogen dRVVT Confirm Interp Factor V Activity POC ABG pH POC ABG pCO2 POC ABG pO2 ABG pO2 ABG HCO3 ABG Base Excess ABG Hemoglobin Oxyhemoglobin Sodium 133 L Potassium Chloride 96.9 L Carbon Dioxide 20 L BUN 63 H Creatinine 2.7 H Glucose 195 H POC Glucose 204 H 169 H Lactic Acid Calcium Phosphorus Magnesium Direct Bilirubin AST ALT Alkaline Phosphatase Lactate Dehydrogenase Troponin T C-Reactive Protein Total Protein Albumin Prealbumin Triglycerides Cholesterol LDL Cholesterol Direct HDL Cholesterol Urine pH Urine WBC (Auto) Urine Creatinine Urine Total Protein Fluid Total Protein Vancomycin Trough Rheumatoid Factor Complement C4 Miscellaneous Test Crossmatch 09/08/16 09/08/16 09/08/16 11:48 11:48 11:48 WBC RBC Hgb Hct MCV MCH MCHC RDW Plt Count Lymph % (Auto) [place] % (Auto) Lymph # [place] # Baso # Seg Neutrophils % Seg Neuts % (Manual) Lymphocytes % (Manual) Monocytes % (Manual) Eosinophils % (Manual) Basophils % (Manual) Nucleated RBC % Seg Neutrophils # Seg Neutrophils # Man Lymphocytes # (Manual) Monocytes # (Manual) Eosinophils # (Manual) Basophils # (Manual) PT INR Fibrinogen 750 H dRVVT Confirm Interp Factor V Activity POC ABG pH POC ABG pCO2 POC ABG pO2 ABG pO2 ABG HCO3 ABG Base Excess ABG Hemoglobin Oxyhemoglobin Sodium Potassium Chloride Carbon Dioxide BUN Creatinine Glucose POC Glucose Lactic Acid Calcium Phosphorus Magnesium Direct Bilirubin AST ALT Alkaline Phosphatase Lactate Dehydrogenase Troponin T C-Reactive Protein 15.70 H Total Protein Albumin Prealbumin Triglycerides Cholesterol LDL Cholesterol Direct HDL Cholesterol Urine pH Urine WBC (Auto) Urine Creatinine Urine Total Protein Fluid Total Protein Vancomycin Trough Rheumatoid Factor 24 H Complement C4 Miscellaneous Test Crossmatch 09/08/16 09/08/16 09/09/16 15:35 18:25 00:24 WBC RBC Hgb Hct MCV MCH MCHC RDW Plt Count Lymph % (Auto) [place] % (Auto) Lymph # [place] # Baso # Seg Neutrophils % Seg Neuts % (Manual) Lymphocytes % (Manual) Monocytes % (Manual) Eosinophils % (Manual) Basophils % (Manual) Nucleated RBC % Seg Neutrophils # Seg Neutrophils # Man Lymphocytes # (Manual) Monocytes # (Manual) Eosinophils # (Manual) Basophils # (Manual) PT INR Fibrinogen dRVVT Confirm Interp Factor V Activity 182 H POC ABG pH POC ABG pCO2 POC ABG pO2 ABG pO2 ABG HCO3 ABG Base Excess ABG Hemoglobin Oxyhemoglobin Sodium Potassium Chloride Carbon Dioxide BUN Creatinine Glucose POC Glucose 184 H 216 H Lactic Acid Calcium Phosphorus Magnesium Direct Bilirubin AST ALT Alkaline Phosphatase Lactate Dehydrogenase Troponin T C-Reactive Protein Total Protein Albumin Prealbumin Triglycerides Cholesterol LDL Cholesterol Direct HDL Cholesterol Urine pH Urine WBC (Auto) Urine Creatinine Urine Total Protein Fluid Total Protein Vancomycin Trough Rheumatoid Factor Complement C4 Miscellaneous Test Crossmatch 09/09/16 09/09/16 09/09/16 03:00 03:00 04:04 WBC 27.9 H RBC Hgb 8.7 L Hct 28.1 L MCV 72 L MCH 22 L MCHC RDW 18.4 H Plt Count 485 H Lymph % (Auto) [place] % (Auto) Lymph # [place] # Baso # Seg Neutrophils % Seg Neuts % (Manual) 77.0 H Lymphocytes % (Manual) 9.0 L Monocytes % (Manual) Eosinophils % (Manual) Basophils % (Manual) Nucleated RBC % Seg Neutrophils # Seg Neutrophils # Man 21.5 H Lymphocytes # (Manual) Monocytes # (Manual) 2.0 H Eosinophils # (Manual) Basophils # (Manual) PT INR Fibrinogen dRVVT Confirm Interp Factor V Activity POC ABG pH POC ABG pCO2 POC ABG pO2 121 H ABG pO2 ABG HCO3 ABG Base Excess ABG Hemoglobin Oxyhemoglobin Sodium 135 L Potassium Chloride 96.3 L Carbon Dioxide 21 L BUN 83 H Creatinine 3.0 H Glucose 135 H POC Glucose Lactic Acid Calcium Phosphorus Magnesium Direct Bilirubin AST ALT Alkaline Phosphatase Lactate Dehydrogenase Troponin T C-Reactive Protein Total Protein Albumin Prealbumin Triglycerides Cholesterol LDL Cholesterol Direct HDL Cholesterol Urine pH Urine WBC (Auto) Urine Creatinine Urine Total Protein Fluid Total Protein Vancomycin Trough Rheumatoid Factor Complement C4 Miscellaneous Test Crossmatch 09/09/16 09/09/16 09/09/16 05:41 11:55 14:13 WBC RBC Hgb Hct MCV MCH MCHC RDW Plt Count Lymph % (Auto) [place] % (Auto) Lymph # [place] # Baso # Seg Neutrophils % Seg Neuts % (Manual) Lymphocytes % (Manual) Monocytes % (Manual) Eosinophils % (Manual) Basophils % (Manual) Nucleated RBC % Seg Neutrophils # Seg Neutrophils # Man Lymphocytes # (Manual) Monocytes # (Manual) Eosinophils # (Manual) Basophils # (Manual) PT INR Fibrinogen dRVVT Confirm Interp Factor V Activity POC ABG pH POC ABG pCO2 POC ABG pO2 ABG pO2 ABG HCO3 ABG Base Excess ABG Hemoglobin Oxyhemoglobin Sodium Potassium Chloride Carbon Dioxide BUN Creatinine Glucose POC Glucose 155 H 186 H Lactic Acid Calcium Phosphorus Magnesium Direct Bilirubin AST ALT Alkaline Phosphatase Lactate Dehydrogenase Troponin T C-Reactive Protein Total Protein Albumin Prealbumin Triglycerides Cholesterol LDL Cholesterol Direct HDL Cholesterol Urine pH Urine WBC (Auto) 25.0 H Urine Creatinine Urine Total Protein Fluid Total Protein Vancomycin Trough Rheumatoid Factor Complement C4 Miscellaneous Test Crossmatch 09/09/16 09/09/16 09/10/16 17:33 23:13 05:09 WBC RBC Hgb Hct MCV MCH MCHC RDW Plt Count Lymph % (Auto) [place] % (Auto) Lymph # [place] # Baso # Seg Neutrophils % Seg Neuts % (Manual) Lymphocytes % (Manual) Monocytes % (Manual) Eosinophils % (Manual) Basophils % (Manual) Nucleated RBC % Seg Neutrophils # Seg Neutrophils # Man Lymphocytes # (Manual) Monocytes # (Manual) Eosinophils # (Manual) Basophils # (Manual) PT INR Fibrinogen dRVVT Confirm Interp Factor V Activity POC ABG pH POC ABG pCO2 POC ABG pO2 74 L ABG pO2 ABG HCO3 ABG Base Excess ABG Hemoglobin Oxyhemoglobin Sodium Potassium Chloride Carbon Dioxide BUN Creatinine Glucose POC Glucose 211 H 215 H Lactic Acid Calcium Phosphorus Magnesium Direct Bilirubin AST ALT Alkaline Phosphatase Lactate Dehydrogenase Troponin T C-Reactive Protein Total Protein Albumin Prealbumin Triglycerides Cholesterol LDL Cholesterol Direct HDL Cholesterol Urine pH Urine WBC (Auto) Urine Creatinine Urine Total Protein Fluid Total Protein Vancomycin Trough Rheumatoid Factor Complement C4 Miscellaneous Test Crossmatch 09/10/16 09/10/16 09/10/16 05:17 05:17 11:31 WBC 15.8 H RBC 3.25 L Hgb 7.3 L Hct 22.9 L MCV 71 L MCH 23 L MCHC RDW 18.4 H Plt Count Lymph % (Auto) [place] % (Auto) Lymph # [place] # Baso # Seg Neutrophils % Seg Neuts % (Manual) 91.0 H Lymphocytes % (Manual) 4.0 L Monocytes % (Manual) Eosinophils % (Manual) Basophils % (Manual) Nucleated RBC % Seg Neutrophils # Seg Neutrophils # Man 14.4 H Lymphocytes # (Manual) 0.6 L Monocytes # (Manual) Eosinophils # (Manual) Basophils # (Manual) PT INR Fibrinogen dRVVT Confirm Interp Factor V Activity POC ABG pH POC ABG pCO2 POC ABG pO2 ABG pO2 ABG HCO3 ABG Base Excess ABG Hemoglobin Oxyhemoglobin Sodium Potassium Chloride Carbon Dioxide 21 L BUN 93 H Creatinine 2.9 H Glucose 146 H POC Glucose 188 H Lactic Acid Calcium 8.1 L Phosphorus Magnesium Direct Bilirubin AST ALT Alkaline Phosphatase Lactate Dehydrogenase Troponin T C-Reactive Protein Total Protein Albumin Prealbumin Triglycerides Cholesterol LDL Cholesterol Direct HDL Cholesterol Urine pH Urine WBC (Auto) Urine Creatinine Urine Total Protein Fluid Total Protein Vancomycin Trough Rheumatoid Factor Complement C4 Miscellaneous Test Crossmatch 09/10/16 09/10/1617 13:17 17:20 23:32 WBC RBC Hgb Hct MCV MCH MCHC RDW Plt Count Lymph % (Auto) [place] % (Auto) Lymph # [place] # Baso # Seg Neutrophils % Seg Neuts % (Manual) Lymphocytes % (Manual) Monocytes % (Manual) Eosinophils % (Manual) Basophils % (Manual) Nucleated RBC % Seg Neutrophils # Seg Neutrophils # Man Lymphocytes # (Manual) Monocytes # (Manual) Eosinophils # (Manual) Basophils # (Manual) PT INR Fibrinogen dRVVT Confirm Interp Factor V Activity POC ABG pH POC ABG pCO2 POC ABG pO2 ABG pO2 ABG HCO3 ABG Base Excess ABG Hemoglobin Oxyhemoglobin Sodium Potassium Chloride Carbon Dioxide BUN Creatinine Glucose POC Glucose 199 H 186 H Lactic Acid Calcium Phosphorus Magnesium Direct Bilirubin AST ALT Alkaline Phosphatase Lactate Dehydrogenase Troponin T C-Reactive Protein Total Protein Albumin Prealbumin Triglycerides Cholesterol LDL Cholesterol Direct HDL Cholesterol Urine pH Urine WBC (Auto) Urine Creatinine Urine Total Protein Fluid Total Protein Vancomycin Trough Rheumatoid Factor Complement C4 Miscellaneous Test Crossmatch See Detail 09/11/16 09/11/16 09/11/16 05:10 05:10 05:17 WBC 28.4 H RBC Hgb 9.2 L Hct 29.3 L D MCV 73 L MCH 23 L MCHC RDW 18.9 H Plt Count 452 H Lymph % (Auto) [place] % (Auto) Lymph # [place] # Baso # Seg Neutrophils % Seg Neuts % (Manual) 89.5 H Lymphocytes % (Manual) 2.0 L Monocytes % (Manual) Eosinophils % (Manual) Basophils % (Manual) Nucleated RBC % Seg Neutrophils # Seg Neutrophils # Man 25.4 H Lymphocytes # (Manual) 0.6 L Monocytes # (Manual) 1.3 H Eosinophils # (Manual) Basophils # (Manual) PT INR Fibrinogen dRVVT Confirm Interp Factor V Activity POC ABG pH POC ABG pCO2 POC ABG pO2 ABG pO2 ABG HCO3 ABG Base Excess ABG Hemoglobin Oxyhemoglobin Sodium 136 L Potassium Chloride Carbon Dioxide 18 L BUN 107 H Creatinine 2.6 H Glucose 187 H POC Glucose 230 H Lactic Acid Calcium 8.3 L Phosphorus Magnesium Direct Bilirubin AST ALT Alkaline Phosphatase Lactate Dehydrogenase Troponin T C-Reactive Protein Total Protein Albumin Prealbumin Triglycerides Cholesterol LDL Cholesterol Direct HDL Cholesterol Urine pH Urine WBC (Auto) Urine Creatinine Urine Total Protein Fluid Total Protein Vancomycin Trough Rheumatoid Factor Complement C4 Miscellaneous Test Crossmatch 09/11/16 09/11/16 09/11/16 05:55 12:02 17:32 WBC RBC Hgb Hct MCV MCH MCHC RDW Plt Count Lymph % (Auto) [place] % (Auto) Lymph # [place] # Baso # Seg Neutrophils % Seg Neuts % (Manual) Lymphocytes % (Manual) Monocytes % (Manual) Eosinophils % (Manual) Basophils % (Manual) Nucleated RBC % Seg Neutrophils # Seg Neutrophils # Man Lymphocytes # (Manual) Monocytes # (Manual) Eosinophils # (Manual) Basophils # (Manual) PT INR Fibrinogen dRVVT Confirm Interp Factor V Activity POC ABG pH POC ABG pCO2 33.8 L POC ABG pO2 ABG pO2 ABG HCO3 ABG Base Excess ABG Hemoglobin Oxyhemoglobin Sodium Potassium Chloride Carbon Dioxide BUN Creatinine Glucose POC Glucose 191 H 239 H Lactic Acid Calcium Phosphorus Magnesium Direct Bilirubin AST ALT Alkaline Phosphatase Lactate Dehydrogenase Troponin T C-Reactive Protein Total Protein Albumin Prealbumin Triglycerides Cholesterol LDL Cholesterol Direct HDL Cholesterol Urine pH Urine WBC (Auto) Urine Creatinine Urine Total Protein Fluid Total Protein Vancomycin Trough Rheumatoid Factor Complement C4 Miscellaneous Test Crossmatch 09/11/16 09/12/16 09/12/16 23:52 05:09 05:32 WBC RBC Hgb Hct MCV MCH MCHC RDW Plt Count Lymph % (Auto) [place] % (Auto) Lymph # [place] # [place] # Seg Neutrophils % Seg Neuts % (Manual) Lymphocytes % (Manual) Monocytes % (Manual) Eosinophils % (Manual) Basophils % (Manual) Nucleated RBC % Seg Neutrophils # Seg Neutrophils # Man Lymphocytes # (Manual) Monocytes # (Manual) Eosinophils # (Manual) Basophils # (Manual) PT INR Fibrinogen dRVVT Confirm Interp Factor V Activity POC ABG pH POC ABG pCO2 34.6 L POC ABG pO2 ABG pO2 ABG HCO3 ABG Base Excess ABG Hemoglobin Oxyhemoglobin Sodium Potassium Chloride Carbon Dioxide BUN Creatinine Glucose POC Glucose 265 H 184 H Lactic Acid Calcium Phosphorus Magnesium Direct Bilirubin AST ALT Alkaline Phosphatase Lactate Dehydrogenase Troponin T C-Reactive Protein Total Protein Albumin Prealbumin Triglycerides Cholesterol LDL Cholesterol Direct HDL Cholesterol Urine pH Urine WBC (Auto) Urine Creatinine Urine Total Protein Fluid Total Protein Vancomycin Trough Rheumatoid Factor Complement C4 Miscellaneous Test Crossmatch 09/12/16 09/12/16 09/12/16 06:45 06:45 07:22 WBC 31.7 H RBC 3.54 L Hgb 8.3 L Hct 25.9 L MCV 73 L MCH 23 L MCHC RDW 18.9 H Plt Count Lymph % (Auto) [place] % (Auto) Lymph # [place] # Baso # Seg Neutrophils % Seg Neuts % (Manual) 88.5 H Lymphocytes % (Manual) 4.5 L Monocytes % (Manual) Eosinophils % (Manual) Basophils % (Manual) Nucleated RBC % Seg Neutrophils # Seg Neutrophils # Man 28.1 H Lymphocytes # (Manual) Monocytes # (Manual) 1.0 H Eosinophils # (Manual) Basophils # (Manual) PT INR Fibrinogen dRVVT Confirm Interp Factor V Activity POC ABG pH POC ABG pCO2 POC ABG pO2 ABG pO2 ABG HCO3 ABG Base Excess ABG Hemoglobin Oxyhemoglobin Sodium Potassium Chloride Carbon Dioxide 20 L BUN 115 H Creatinine 2.7 H Glucose 165 H POC Glucose Lactic Acid Calcium 8.0 L Phosphorus Magnesium Direct Bilirubin AST ALT Alkaline Phosphatase Lactate Dehydrogenase Troponin T C-Reactive Protein Total Protein Albumin Prealbumin Triglycerides 217 H Cholesterol LDL Cholesterol Direct HDL Cholesterol Urine pH Urine WBC (Auto) Urine Creatinine Urine Total Protein Fluid Total Protein Vancomycin Trough Rheumatoid Factor Complement C4 Miscellaneous Test Crossmatch 09/12/16 09/12/16 09/12/16 07:22 09:59 12:21 WBC RBC Hgb Hct MCV MCH MCHC RDW Plt Count Lymph % (Auto) [place] % (Auto) Lymph # [place] # Baso # Seg Neutrophils % Seg Neuts % (Manual) Lymphocytes % (Manual) Monocytes % (Manual) Eosinophils % (Manual) Basophils % (Manual) Nucleated RBC % Seg Neutrophils # Seg Neutrophils # Man Lymphocytes # (Manual) Monocytes # (Manual) Eosinophils # (Manual) Basophils # (Manual) PT INR Fibrinogen dRVVT Confirm Interp Positive H Factor V Activity POC ABG pH POC ABG pCO2 POC ABG pO2 ABG pO2 ABG HCO3 ABG Base Excess ABG Hemoglobin Oxyhemoglobin Sodium Potassium Chloride Carbon Dioxide BUN Creatinine Glucose POC Glucose 224 H Lactic Acid Calcium Phosphorus Magnesium Direct Bilirubin AST ALT Alkaline Phosphatase Lactate Dehydrogenase Troponin T C-Reactive Protein 1.70 H Total Protein Albumin Prealbumin Triglycerides Cholesterol LDL Cholesterol Direct HDL Cholesterol Urine pH Urine WBC (Auto) Urine Creatinine Urine Total Protein Fluid Total Protein Vancomycin Trough Rheumatoid Factor Complement C4 Miscellaneous Test Crossmatch 09/12/16 09/12/16 09/13/16 16:51 23:28 04:00 WBC 45.0 H* RBC Hgb 9.4 L Hct MCV 75 L MCH 23 L MCHC RDW 19.0 H Plt Count 470 H Lymph % (Auto) [place] % (Auto) Lymph # [place] # Baso # Seg Neutrophils % Seg Neuts % (Manual) 89.0 H Lymphocytes % (Manual) 5.0 L Monocytes % (Manual) Eosinophils % (Manual) Basophils % (Manual) Nucleated RBC % Seg Neutrophils # Seg Neutrophils # Man 40.1 H Lymphocytes # (Manual) Monocytes # (Manual) Eosinophils # (Manual) Basophils # (Manual) PT INR Fibrinogen dRVVT Confirm Interp Factor V Activity POC ABG pH POC ABG pCO2 POC ABG pO2 ABG pO2 ABG HCO3 ABG Base Excess ABG Hemoglobin Oxyhemoglobin Sodium Potassium Chloride Carbon Dioxide BUN Creatinine Glucose POC Glucose 169 H 150 H Lactic Acid Calcium Phosphorus Magnesium Direct Bilirubin AST ALT Alkaline Phosphatase Lactate Dehydrogenase Troponin T C-Reactive Protein Total Protein Albumin Prealbumin Triglycerides Cholesterol LDL Cholesterol Direct HDL Cholesterol Urine pH Urine WBC (Auto) Urine Creatinine Urine Total Protein Fluid Total Protein Vancomycin Trough Rheumatoid Factor Complement C4 Miscellaneous Test Crossmatch 09/13/16 09/13/16 09/13/16 04:00 11:26 17:31 WBC RBC Hgb Hct MCV MCH MCHC RDW Plt Count Lymph % (Auto) [place] % (Auto) Lymph # [place] # Baso # Seg Neutrophils % Seg Neuts % (Manual) Lymphocytes % (Manual) Monocytes % (Manual) Eosinophils % (Manual) Basophils % (Manual) Nucleated RBC % Seg Neutrophils # Seg Neutrophils # Man Lymphocytes # (Manual) Monocytes # (Manual) Eosinophils # (Manual) Basophils # (Manual) PT INR Fibrinogen dRVVT Confirm Interp Factor V Activity POC ABG pH POC ABG pCO2 POC ABG pO2 ABG pO2 ABG HCO3 ABG Base Excess ABG Hemoglobin Oxyhemoglobin Sodium Potassium Chloride Carbon Dioxide 20 L BUN 116 H Creatinine 3.0 H Glucose 172 H POC Glucose 140 H 183 H Lactic Acid Calcium Phosphorus Magnesium Direct Bilirubin AST ALT Alkaline Phosphatase Lactate Dehydrogenase Troponin T C-Reactive Protein Total Protein 6.2 L Albumin 2.9 L Prealbumin Triglycerides Cholesterol LDL Cholesterol Direct HDL Cholesterol Urine pH Urine WBC (Auto) Urine Creatinine Urine Total Protein Fluid Total Protein Vancomycin Trough Rheumatoid Factor Complement C4 Miscellaneous Test Crossmatch 09/13/16 09/14/16 09/14/16 23:23 04:06 04:07 WBC 29.4 H RBC Hgb 8.9 L Hct 27.3 L MCV 75 L MCH 24 L MCHC RDW 19.1 H Plt Count Lymph % (Auto) [place] % (Auto) Lymph # [place] # Baso # Seg Neutrophils % Seg Neuts % (Manual) 84.0 H Lymphocytes % (Manual) 6.0 L Monocytes % (Manual) 9.0 H Eosinophils % (Manual) Basophils % (Manual) Nucleated RBC % Seg Neutrophils # Seg Neutrophils # Man 24.7 H Lymphocytes # (Manual) Monocytes # (Manual) 2.6 H Eosinophils # (Manual) Basophils # (Manual) PT INR Fibrinogen dRVVT Confirm Interp Factor V Activity POC ABG pH 7.342 L POC ABG pCO2 POC ABG pO2 116 H ABG pO2 ABG HCO3 ABG Base Excess ABG Hemoglobin Oxyhemoglobin Sodium Potassium Chloride Carbon Dioxide BUN Creatinine Glucose POC Glucose 154 H Lactic Acid Calcium Phosphorus Magnesium Direct Bilirubin AST ALT Alkaline Phosphatase Lactate Dehydrogenase Troponin T C-Reactive Protein Total Protein Albumin Prealbumin Triglycerides Cholesterol LDL Cholesterol Direct HDL Cholesterol Urine pH Urine WBC (Auto) Urine Creatinine Urine Total Protein Fluid Total Protein Vancomycin Trough Rheumatoid Factor Complement C4 Miscellaneous Test Crossmatch 09/14/16 09/14/16 09/14/16 04:07 05:29 12:19 WBC RBC Hgb Hct MCV MCH MCHC RDW Plt Count Lymph % (Auto) [place] % (Auto) Lymph # [place] # Baso # Seg Neutrophils % Seg Neuts % (Manual) Lymphocytes % (Manual) Monocytes % (Manual) Eosinophils % (Manual) Basophils % (Manual) Nucleated RBC % Seg Neutrophils # Seg Neutrophils # Man Lymphocytes # (Manual) Monocytes # (Manual) Eosinophils # (Manual) Basophils # (Manual) PT INR Fibrinogen dRVVT Confirm Interp Factor V Activity POC ABG pH POC ABG pCO2 POC ABG pO2 ABG pO2 ABG HCO3 ABG Base Excess ABG Hemoglobin Oxyhemoglobin Sodium 136 L Potassium Chloride Carbon Dioxide 18 L BUN 121 H Creatinine 2.8 H Glucose 214 H POC Glucose 239 H 181 H Lactic Acid Calcium Phosphorus Magnesium Direct Bilirubin AST ALT Alkaline Phosphatase Lactate Dehydrogenase Troponin T C-Reactive Protein Total Protein Albumin Prealbumin Triglycerides Cholesterol LDL Cholesterol Direct HDL Cholesterol Urine pH Urine WBC (Auto) Urine Creatinine Urine Total Protein Fluid Total Protein Vancomycin Trough Rheumatoid Factor Complement C4 Miscellaneous Test Crossmatch 09/14/16 09/14/16 09/15/16 18:12 23:37 05:00 WBC 26.1 H RBC 3.05 L Hgb 7.2 L Hct 22.9 L MCV 75 L MCH 24 L MCHC RDW 19.0 H Plt Count Lymph % (Auto) [place] % (Auto) Lymph # [place] # Baso # Seg Neutrophils % Seg Neuts % (Manual) Lymphocytes % (Manual) Monocytes % (Manual) Eosinophils % (Manual) Basophils % (Manual) Nucleated RBC % Seg Neutrophils # Seg Neutrophils # Man Lymphocytes # (Manual) Monocytes # (Manual) Eosinophils # (Manual) Basophils # (Manual) PT INR Fibrinogen dRVVT Confirm Interp Factor V Activity POC ABG pH POC ABG pCO2 POC ABG pO2 ABG pO2 ABG HCO3 ABG Base Excess ABG Hemoglobin Oxyhemoglobin Sodium Potassium Chloride Carbon Dioxide BUN Creatinine Glucose POC Glucose 266 H 154 H Lactic Acid Calcium Phosphorus Magnesium Direct Bilirubin AST ALT Alkaline Phosphatase Lactate Dehydrogenase Troponin T C-Reactive Protein Total Protein Albumin Prealbumin Triglycerides Cholesterol LDL Cholesterol Direct HDL Cholesterol Urine pH Urine WBC (Auto) Urine Creatinine Urine Total Protein Fluid Total Protein Vancomycin Trough Rheumatoid Factor Complement C4 Miscellaneous Test Crossmatch 09/15/16 09/15/16 09/15/16 05:00 05:17 12:45 WBC RBC Hgb Hct MCV MCH MCHC RDW Plt Count Lymph % (Auto) [place] % (Auto) Lymph # [place] # Baso # Seg Neutrophils % Seg Neuts % (Manual) Lymphocytes % (Manual) Monocytes % (Manual) Eosinophils % (Manual) Basophils % (Manual) Nucleated RBC % Seg Neutrophils # Seg Neutrophils # Man Lymphocytes # (Manual) Monocytes # (Manual) Eosinophils # (Manual) Basophils # (Manual) PT INR Fibrinogen dRVVT Confirm Interp Factor V Activity POC ABG pH POC ABG pCO2 POC ABG pO2 ABG pO2 ABG HCO3 ABG Base Excess ABG Hemoglobin Oxyhemoglobin Sodium Potassium 5.2 H Chloride Carbon Dioxide 18 L BUN 139 H Creatinine 3.7 H Glucose 227 H POC Glucose 226 H 244 H Lactic Acid Calcium 8.3 L Phosphorus Magnesium Direct Bilirubin AST ALT Alkaline Phosphatase Lactate Dehydrogenase Troponin T C-Reactive Protein Total Protein Albumin Prealbumin Triglycerides Cholesterol LDL Cholesterol Direct HDL Cholesterol Urine pH Urine WBC (Auto) Urine Creatinine Urine Total Protein Fluid Total Protein Vancomycin Trough Rheumatoid Factor Complement C4 Miscellaneous Test Crossmatch 09/15/16 09/15/16 09/15/16 14:32 17:33 23:35 WBC RBC Hgb Hct MCV MCH MCHC RDW Plt Count Lymph % (Auto) [place] % (Auto) Lymph # [place] # Baso # Seg Neutrophils % Seg Neuts % (Manual) Lymphocytes % (Manual) Monocytes % (Manual) Eosinophils % (Manual) Basophils % (Manual) Nucleated RBC % Seg Neutrophils # Seg Neutrophils # Man Lymphocytes # (Manual) Monocytes # (Manual) Eosinophils # (Manual) Basophils # (Manual) PT INR Fibrinogen dRVVT Confirm Interp Factor V Activity POC ABG pH POC ABG pCO2 27.7 L POC ABG pO2 120 H ABG pO2 ABG HCO3 ABG Base Excess ABG Hemoglobin Oxyhemoglobin Sodium Potassium Chloride Carbon Dioxide BUN Creatinine Glucose POC Glucose 232 H 167 H Lactic Acid Calcium Phosphorus Magnesium Direct Bilirubin AST ALT Alkaline Phosphatase Lactate Dehydrogenase Troponin T C-Reactive Protein Total Protein Albumin Prealbumin Triglycerides Cholesterol LDL Cholesterol Direct HDL Cholesterol Urine pH Urine WBC (Auto) Urine Creatinine Urine Total Protein Fluid Total Protein Vancomycin Trough Rheumatoid Factor Complement C4 Miscellaneous Test Crossmatch 09/16/16 09/16/16 09/16/16 03:58 10:27 10:27 WBC 19.0 H RBC 2.77 L Hgb 6.5 L Hct 20.9 L MCV 76 L MCH 23 L MCHC RDW 19.3 H Plt Count Lymph % (Auto) 11.0 L [place] % (Auto) Lymph # [place] # 1.1 H Baso # Seg Neutrophils % 82.5 H Seg Neuts % (Manual) Lymphocytes % (Manual) Monocytes % (Manual) Eosinophils % (Manual) Basophils % (Manual) Nucleated RBC % Seg Neutrophils # 15.7 H Seg Neutrophils # Man Lymphocytes # (Manual) Monocytes # (Manual) Eosinophils # (Manual) Basophils # (Manual) PT INR Fibrinogen dRVVT Confirm Interp Factor V Activity POC ABG pH POC ABG pCO2 POC ABG pO2 ABG pO2 ABG HCO3 ABG Base Excess ABG Hemoglobin Oxyhemoglobin Sodium Potassium Chloride 109.3 H Carbon Dioxide 18 L BUN 139 H Creatinine 4.1 H Glucose 144 H POC Glucose 146 H Lactic Acid Calcium 8.1 L Phosphorus Magnesium Direct Bilirubin AST ALT Alkaline Phosphatase Lactate Dehydrogenase Troponin T C-Reactive Protein Total Protein Albumin Prealbumin Triglycerides Cholesterol LDL Cholesterol Direct HDL Cholesterol Urine pH Urine WBC (Auto) Urine Creatinine Urine Total Protein Fluid Total Protein Vancomycin Trough Rheumatoid Factor Complement C4 Miscellaneous Test Crossmatch 09/16/16 09/16/16 09/16/16 12:04 12:10 13:55 WBC RBC Hgb Hct MCV MCH MCHC RDW Plt Count Lymph % (Auto) [place] % (Auto) Lymph # [place] # Baso # Seg Neutrophils % Seg Neuts % (Manual) Lymphocytes % (Manual) Monocytes % (Manual) Eosinophils % (Manual) Basophils % (Manual) Nucleated RBC % Seg Neutrophils # Seg Neutrophils # Man Lymphocytes # (Manual) Monocytes # (Manual) Eosinophils # (Manual) Basophils # (Manual) PT INR Fibrinogen dRVVT Confirm Interp Factor V Activity POC ABG pH POC ABG pCO2 32.9 L POC ABG pO2 ABG pO2 ABG HCO3 ABG Base Excess ABG Hemoglobin Oxyhemoglobin Sodium Potassium Chloride Carbon Dioxide BUN Creatinine Glucose POC Glucose 185 H Lactic Acid Calcium Phosphorus Magnesium Direct Bilirubin AST ALT Alkaline Phosphatase Lactate Dehydrogenase Troponin T C-Reactive Protein Total Protein Albumin Prealbumin Triglycerides Cholesterol LDL Cholesterol Direct HDL Cholesterol Urine pH Urine WBC (Auto) Urine Creatinine Urine Total Protein Fluid Total Protein Vancomycin Trough Rheumatoid Factor Complement C4 Miscellaneous Test Crossmatch See Detail 09/16/16 09/16/16 09/16/16 17:55 19:19 23:48 WBC RBC Hgb Hct MCV MCH MCHC RDW Plt Count Lymph % (Auto) [place] % (Auto) Lymph # [place] # Baso # Seg Neutrophils % Seg Neuts % (Manual) Lymphocytes % (Manual) Monocytes % (Manual) Eosinophils % (Manual) Basophils % (Manual) Nucleated RBC % Seg Neutrophils # Seg Neutrophils # Man Lymphocytes # (Manual) Monocytes # (Manual) Eosinophils # (Manual) Basophils # (Manual) PT INR Fibrinogen dRVVT Confirm Interp Factor V Activity POC ABG pH POC ABG pCO2 POC ABG pO2 ABG pO2 ABG HCO3 ABG Base Excess ABG Hemoglobin Oxyhemoglobin Sodium Potassium Chloride Carbon Dioxide BUN Creatinine Glucose POC Glucose 222 H 107 H Lactic Acid Calcium Phosphorus Magnesium Direct Bilirubin AST ALT Alkaline Phosphatase Lactate Dehydrogenase Troponin T C-Reactive Protein Total Protein Albumin Prealbumin Triglycerides Cholesterol LDL Cholesterol Direct HDL Cholesterol Urine pH Urine WBC (Auto) Urine Creatinine 47.4 H Urine Total Protein 16 H Fluid Total Protein Vancomycin Trough Rheumatoid Factor Complement C4 Miscellaneous Test Crossmatch 09/17/16 09/17/16 09/17/16 03:45 03:45 04:55 WBC 19.6 H RBC 3.41 L Hgb 8.5 L Hct 26.7 L MCV 78 L MCH 25 L MCHC RDW 19.9 H Plt Count Lymph % (Auto) 9.3 L [place] % (Auto) Lymph # [place] # 1.2 H Baso # Seg Neutrophils % 83.9 H Seg Neuts % (Manual) Lymphocytes % (Manual) Monocytes % (Manual) Eosinophils % (Manual) Basophils % (Manual) Nucleated RBC % Seg Neutrophils # 16.4 H Seg Neutrophils # Man Lymphocytes # (Manual) Monocytes # (Manual) Eosinophils # (Manual) Basophils # (Manual) PT INR Fibrinogen dRVVT Confirm Interp Factor V Activity POC ABG pH POC ABG pCO2 POC ABG pO2 ABG pO2 ABG HCO3 ABG Base Excess ABG Hemoglobin Oxyhemoglobin Sodium 146 H Potassium 5.1 H Chloride 110.9 H Carbon Dioxide 16 L BUN 146 H Creatinine 4.0 H Glucose 108 H POC Glucose 133 H Lactic Acid Calcium Phosphorus Magnesium 3.00 H Direct Bilirubin AST ALT Alkaline Phosphatase Lactate Dehydrogenase Troponin T C-Reactive Protein Total Protein Albumin Prealbumin Triglycerides Cholesterol LDL Cholesterol Direct HDL Cholesterol Urine pH Urine WBC (Auto) Urine Creatinine Urine Total Protein Fluid Total Protein Vancomycin Trough Rheumatoid Factor Complement C4 Miscellaneous Test Crossmatch 09/17/16 09/17/16 09/17/16 11:15 17:33 23:47 WBC RBC Hgb Hct MCV MCH MCHC RDW Plt Count Lymph % (Auto) [place] % (Auto) Lymph # [place] # Baso # Seg Neutrophils % Seg Neuts % (Manual) Lymphocytes % (Manual) Monocytes % (Manual) Eosinophils % (Manual) Basophils % (Manual) Nucleated RBC % Seg Neutrophils # Seg Neutrophils # Man Lymphocytes # (Manual) Monocytes # (Manual) Eosinophils # (Manual) Basophils # (Manual) PT INR Fibrinogen dRVVT Confirm Interp Factor V Activity POC ABG pH POC ABG pCO2 POC ABG pO2 ABG pO2 ABG HCO3 ABG Base Excess ABG Hemoglobin Oxyhemoglobin Sodium Potassium Chloride Carbon Dioxide BUN Creatinine Glucose POC Glucose 176 H 246 H 148 H Lactic Acid Calcium Phosphorus Magnesium Direct Bilirubin AST ALT Alkaline Phosphatase Lactate Dehydrogenase Troponin T C-Reactive Protein Total Protein Albumin Prealbumin Triglycerides Cholesterol LDL Cholesterol Direct HDL Cholesterol Urine pH Urine WBC (Auto) Urine Creatinine Urine Total Protein Fluid Total Protein Vancomycin Trough Rheumatoid Factor Complement C4 Miscellaneous Test Crossmatch 09/18/16 09/18/16 09/18/16 05:33 08:31 08:31 WBC 18.0 H RBC 3.17 L Hgb 9.0 L Hct 25.7 L MCV MCH MCHC 35 H RDW 20.4 H Plt Count Lymph % (Auto) [place] % (Auto) Lymph # [place] # Baso # Seg Neutrophils % Seg Neuts % (Manual) Lymphocytes % (Manual) Monocytes % (Manual) Eosinophils % (Manual) Basophils % (Manual) Nucleated RBC % Seg Neutrophils # Seg Neutrophils # Man Lymphocytes # (Manual) Monocytes # (Manual) Eosinophils # (Manual) Basophils # (Manual) PT INR Fibrinogen dRVVT Confirm Interp Factor V Activity POC ABG pH POC ABG pCO2 POC ABG pO2 ABG pO2 ABG HCO3 ABG Base Excess ABG Hemoglobin Oxyhemoglobin Sodium Potassium Chloride Carbon Dioxide 15 L BUN 124 H Creatinine 3.8 H Glucose POC Glucose 120 H Lactic Acid Calcium 8.1 L Phosphorus Magnesium Direct Bilirubin AST ALT Alkaline Phosphatase Lactate Dehydrogenase Troponin T C-Reactive Protein Total Protein Albumin Prealbumin Triglycerides Cholesterol LDL Cholesterol Direct HDL Cholesterol Urine pH Urine WBC (Auto) Urine Creatinine Urine Total Protein Fluid Total Protein Vancomycin Trough Rheumatoid Factor Complement C4 Miscellaneous Test Crossmatch 09/18/16 09/18/16 09/18/16 12:03 15:34 17:50 WBC RBC Hgb Hct MCV MCH MCHC RDW Plt Count Lymph % (Auto) [place] % (Auto) Lymph # [place] # Baso # Seg Neutrophils % Seg Neuts % (Manual) Lymphocytes % (Manual) Monocytes % (Manual) Eosinophils % (Manual) Basophils % (Manual) Nucleated RBC % Seg Neutrophils # Seg Neutrophils # Man Lymphocytes # (Manual) Monocytes # (Manual) Eosinophils # (Manual) Basophils # (Manual) PT INR Fibrinogen dRVVT Confirm Interp Factor V Activity POC ABG pH POC ABG pCO2 25.7 L POC ABG pO2 66 L ABG pO2 ABG HCO3 ABG Base Excess ABG Hemoglobin Oxyhemoglobin Sodium Potassium Chloride Carbon Dioxide BUN Creatinine Glucose POC Glucose 156 H 220 H Lactic Acid Calcium Phosphorus Magnesium Direct Bilirubin AST ALT Alkaline Phosphatase Lactate Dehydrogenase Troponin T C-Reactive Protein Total Protein Albumin Prealbumin Triglycerides Cholesterol LDL Cholesterol Direct HDL Cholesterol Urine pH Urine WBC (Auto) Urine Creatinine Urine Total Protein Fluid Total Protein Vancomycin Trough Rheumatoid Factor Complement C4 Miscellaneous Test Crossmatch 09/19/16 09/19/16 09/19/16 06:21 09:50 09:50 WBC 17.1 H RBC 3.49 L Hgb 9.0 L Hct 28.1 L MCV MCH 26 L MCHC RDW 20.8 H Plt Count Lymph % (Auto) 11.5 L [place] % (Auto) 7.5 H Lymph # [place] # 1.3 H Baso # Seg Neutrophils % 79.8 H Seg Neuts % (Manual) Lymphocytes % (Manual) Monocytes % (Manual) Eosinophils % (Manual) Basophils % (Manual) Nucleated RBC % Seg Neutrophils # 13.7 H Seg Neutrophils # Man Lymphocytes # (Manual) Monocytes # (Manual) Eosinophils # (Manual) Basophils # (Manual) PT INR Fibrinogen dRVVT Confirm Interp Factor V Activity POC ABG pH POC ABG pCO2 POC ABG pO2 ABG pO2 ABG HCO3 ABG Base Excess ABG Hemoglobin Oxyhemoglobin Sodium Potassium Chloride 108.6 H Carbon Dioxide 15 L BUN 125 H Creatinine 4.1 H Glucose 124 H POC Glucose 119 H Lactic Acid Calcium Phosphorus Magnesium Direct Bilirubin AST ALT Alkaline Phosphatase Lactate Dehydrogenase Troponin T C-Reactive Protein Total Protein Albumin Prealbumin Triglycerides Cholesterol LDL Cholesterol Direct HDL Cholesterol Urine pH Urine WBC (Auto) Urine Creatinine Urine Total Protein Fluid Total Protein Vancomycin Trough Rheumatoid Factor Complement C4 Miscellaneous Test Crossmatch 09/19/16 09/19/16 09/19/16 11:25 17:53 23:36 WBC RBC Hgb Hct MCV MCH MCHC RDW Plt Count Lymph % (Auto) [place] % (Auto) Lymph # [place] # Baso # Seg Neutrophils % Seg Neuts % (Manual) Lymphocytes % (Manual) Monocytes % (Manual) Eosinophils % (Manual) Basophils % (Manual) Nucleated RBC % Seg Neutrophils # Seg Neutrophils # Man Lymphocytes # (Manual) Monocytes # (Manual) Eosinophils # (Manual) Basophils # (Manual) PT INR Fibrinogen dRVVT Confirm Interp Factor V Activity POC ABG pH POC ABG pCO2 POC ABG pO2 ABG pO2 ABG HCO3 ABG Base Excess ABG Hemoglobin Oxyhemoglobin Sodium Potassium Chloride Carbon Dioxide BUN Creatinine Glucose POC Glucose 160 H 245 H 121 H Lactic Acid Calcium Phosphorus Magnesium Direct Bilirubin AST ALT Alkaline Phosphatase Lactate Dehydrogenase Troponin T C-Reactive Protein Total Protein Albumin Prealbumin Triglycerides Cholesterol LDL Cholesterol Direct HDL Cholesterol Urine pH Urine WBC (Auto) Urine Creatinine Urine Total Protein Fluid Total Protein Vancomycin Trough Rheumatoid Factor Complement C4 Miscellaneous Test Crossmatch 09/20/16 09/20/16 09/20/16 04:10 04:10 04:10 WBC 17.0 H RBC 3.21 L Hgb 8.2 L Hct 25.5 L MCV MCH 26 L MCHC RDW 20.9 H Plt Count Lymph % (Auto) [place] % (Auto) Lymph # [place] # Baso # Seg Neutrophils % Seg Neuts % (Manual) Lymphocytes % (Manual) Monocytes % (Manual) Eosinophils % (Manual) Basophils % (Manual) Nucleated RBC % Seg Neutrophils # Seg Neutrophils # Man Lymphocytes # (Manual) Monocytes # (Manual) Eosinophils # (Manual) Basophils # (Manual) PT INR Fibrinogen dRVVT Confirm Interp Factor V Activity POC ABG pH POC ABG pCO2 POC ABG pO2 ABG pO2 ABG HCO3 ABG Base Excess ABG Hemoglobin Oxyhemoglobin Sodium Potassium Chloride 111.0 H Carbon Dioxide 16 L BUN 129 H Creatinine 3.7 H Glucose 115 H POC Glucose Lactic Acid Calcium 8.2 L Phosphorus Magnesium Direct Bilirubin AST ALT Alkaline Phosphatase Lactate Dehydrogenase Troponin T C-Reactive Protein Total Protein Albumin Prealbumin Triglycerides 243 H Cholesterol LDL Cholesterol Direct HDL Cholesterol Urine pH Urine WBC (Auto) Urine Creatinine Urine Total Protein Fluid Total Protein Vancomycin Trough Rheumatoid Factor Complement C4 Miscellaneous Test Crossmatch 09/20/16 09/20/16 09/20/16 05:40 11:52 16:50 WBC RBC Hgb Hct MCV MCH MCHC RDW Plt Count Lymph % (Auto) [place] % (Auto) Lymph # [place] # Baso # Seg Neutrophils % Seg Neuts % (Manual) Lymphocytes % (Manual) Monocytes % (Manual) Eosinophils % (Manual) Basophils % (Manual) Nucleated RBC % Seg Neutrophils # Seg Neutrophils # Man Lymphocytes # (Manual) Monocytes # (Manual) Eosinophils # (Manual) Basophils # (Manual) PT INR Fibrinogen dRVVT Confirm Interp Factor V Activity POC ABG pH POC ABG pCO2 POC ABG pO2 ABG pO2 ABG HCO3 ABG Base Excess ABG Hemoglobin Oxyhemoglobin Sodium Potassium Chloride Carbon Dioxide BUN Creatinine Glucose POC Glucose 131 H 183 H 236 H Lactic Acid Calcium Phosphorus Magnesium Direct Bilirubin AST ALT Alkaline Phosphatase Lactate Dehydrogenase Troponin T C-Reactive Protein Total Protein Albumin Prealbumin Triglycerides Cholesterol LDL Cholesterol Direct HDL Cholesterol Urine pH Urine WBC (Auto) Urine Creatinine Urine Total Protein Fluid Total Protein Vancomycin Trough Rheumatoid Factor Complement C4 Miscellaneous Test Crossmatch 09/20/16 09/21/16 09/21/16 23:51 03:30 04:44 WBC RBC Hgb Hct MCV MCH MCHC RDW Plt Count Lymph % (Auto) [place] % (Auto) Lymph # [place] # Baso # Seg Neutrophils % Seg Neuts % (Manual) Lymphocytes % (Manual) Monocytes % (Manual) Eosinophils % (Manual) Basophils % (Manual) Nucleated RBC % Seg Neutrophils # Seg Neutrophils # Man Lymphocytes # (Manual) Monocytes # (Manual) Eosinophils # (Manual) Basophils # (Manual) PT INR Fibrinogen dRVVT Confirm Interp Factor V Activity POC ABG pH POC ABG pCO2 POC ABG pO2 ABG pO2 ABG HCO3 ABG Base Excess ABG Hemoglobin Oxyhemoglobin Sodium Potassium Chloride Carbon Dioxide BUN Creatinine Glucose POC Glucose 114 H 141 H Lactic Acid Calcium Phosphorus Magnesium 2.70 H Direct Bilirubin AST ALT Alkaline Phosphatase Lactate Dehydrogenase Troponin T C-Reactive Protein Total Protein Albumin Prealbumin Triglycerides Cholesterol LDL Cholesterol Direct HDL Cholesterol Urine pH Urine WBC (Auto) Urine Creatinine Urine Total Protein Fluid Total Protein Vancomycin Trough Rheumatoid Factor Complement C4 Miscellaneous Test Crossmatch 09/21/16 09/21/16 09/21/16 07:45 07:45 10:01 WBC 13.8 H RBC 2.94 L Hgb 7.5 L Hct 23.5 L MCV MCH 26 L MCHC RDW 21.2 H Plt Count Lymph % (Auto) 6.9 L [place] % (Auto) 9.4 H Lymph # 0.9 L [place] # 1.3 H Baso # Seg Neutrophils % 83.2 H Seg Neuts % (Manual) Lymphocytes % (Manual) Monocytes % (Manual) Eosinophils % (Manual) Basophils % (Manual) Nucleated RBC % Seg Neutrophils # 11.5 H Seg Neutrophils # Man Lymphocytes # (Manual) Monocytes # (Manual) Eosinophils # (Manual) Basophils # (Manual) PT INR Fibrinogen dRVVT Confirm Interp Factor V Activity POC ABG pH 7.308 L POC ABG pCO2 31.9 L POC ABG pO2 148 H ABG pO2 ABG HCO3 ABG Base Excess ABG Hemoglobin Oxyhemoglobin Sodium 147 H Potassium Chloride 114.2 H Carbon Dioxide 15 L BUN 120 H Creatinine 3.9 H Glucose 156 H POC Glucose Lactic Acid Calcium 8.2 L Phosphorus Magnesium Direct Bilirubin AST ALT Alkaline Phosphatase Lactate Dehydrogenase Troponin T C-Reactive Protein Total Protein Albumin Prealbumin Triglycerides Cholesterol LDL Cholesterol Direct HDL Cholesterol Urine pH Urine WBC (Auto) Urine Creatinine Urine Total Protein Fluid Total Protein Vancomycin Trough Rheumatoid Factor Complement C4 Miscellaneous Test Crossmatch 09/21/16 09/21/16 09/21/16 12:00 12:03 13:00 WBC RBC Hgb Hct MCV MCH MCHC RDW Plt Count Lymph % (Auto) [place] % (Auto) Lymph # [place] # Baso # Seg Neutrophils % Seg Neuts % (Manual) Lymphocytes % (Manual) Monocytes % (Manual) Eosinophils % (Manual) Basophils % (Manual) Nucleated RBC % Seg Neutrophils # Seg Neutrophils # Man Lymphocytes # (Manual) Monocytes # (Manual) Eosinophils # (Manual) Basophils # (Manual) PT INR Fibrinogen dRVVT Confirm Interp Factor V Activity POC ABG pH POC ABG pCO2 POC ABG pO2 ABG pO2 ABG HCO3 ABG Base Excess ABG Hemoglobin Oxyhemoglobin Sodium Potassium Chloride Carbon Dioxide BUN Creatinine Glucose POC Glucose 163 H Lactic Acid Calcium Phosphorus Magnesium Direct Bilirubin AST ALT Alkaline Phosphatase Lactate Dehydrogenase Troponin T C-Reactive Protein Total Protein Albumin Prealbumin Triglycerides Cholesterol LDL Cholesterol Direct HDL Cholesterol Urine pH Urine WBC (Auto) Urine Creatinine 54.8 H Urine Total Protein Fluid Total Protein Vancomycin Trough 2.3 L Rheumatoid Factor Complement C4 Miscellaneous Test Crossmatch 09/21/16 09/21/16 09/22/16 16:51 23:17 06:27 WBC RBC Hgb Hct MCV MCH MCHC RDW Plt Count Lymph % (Auto) [place] % (Auto) Lymph # [place] # Baso # Seg Neutrophils % Seg Neuts % (Manual) Lymphocytes % (Manual) Monocytes % (Manual) Eosinophils % (Manual) Basophils % (Manual) Nucleated RBC % Seg Neutrophils # Seg Neutrophils # Man Lymphocytes # (Manual) Monocytes # (Manual) Eosinophils # (Manual) Basophils # (Manual) PT INR Fibrinogen dRVVT Confirm Interp Factor V Activity POC ABG pH POC ABG pCO2 POC ABG pO2 ABG pO2 ABG HCO3 ABG Base Excess ABG Hemoglobin Oxyhemoglobin Sodium Potassium Chloride Carbon Dioxide BUN Creatinine Glucose POC Glucose 206 H 114 H 115 H Lactic Acid Calcium Phosphorus Magnesium Direct Bilirubin AST ALT Alkaline Phosphatase Lactate Dehydrogenase Troponin T C-Reactive Protein Total Protein Albumin Prealbumin Triglycerides Cholesterol LDL Cholesterol Direct HDL Cholesterol Urine pH Urine WBC (Auto) Urine Creatinine Urine Total Protein Fluid Total Protein Vancomycin Trough Rheumatoid Factor Complement C4 Miscellaneous Test Crossmatch 09/22/16 09/22/16 09/22/16 07:50 07:50 12:00 WBC 17.8 H RBC 3.04 L Hgb 8.0 L Hct 24.7 L MCV MCH 26 L MCHC RDW 21.6 H Plt Count Lymph % (Auto) [place] % (Auto) Lymph # [place] # Baso # Seg Neutrophils % Seg Neuts % (Manual) Lymphocytes % (Manual) Monocytes % (Manual) Eosinophils % (Manual) Basophils % (Manual) Nucleated RBC % Seg Neutrophils # Seg Neutrophils # Man Lymphocytes # (Manual) Monocytes # (Manual) Eosinophils # (Manual) Basophils # (Manual) PT INR Fibrinogen dRVVT Confirm Interp Factor V Activity POC ABG pH POC ABG pCO2 POC ABG pO2 ABG pO2 ABG HCO3 ABG Base Excess ABG Hemoglobin Oxyhemoglobin Sodium 150 H Potassium Chloride 118.2 H Carbon Dioxide 14 L BUN 111 H Creatinine 3.7 H Glucose 157 H POC Glucose 183 H Lactic Acid Calcium Phosphorus Magnesium Direct Bilirubin AST ALT Alkaline Phosphatase Lactate Dehydrogenase Troponin T C-Reactive Protein Total Protein Albumin Prealbumin Triglycerides Cholesterol LDL Cholesterol Direct HDL Cholesterol Urine pH Urine WBC (Auto) Urine Creatinine Urine Total Protein Fluid Total Protein Vancomycin Trough Rheumatoid Factor Complement C4 Miscellaneous Test Crossmatch 09/22/16 09/22/16 09/23/16 17:29 23:10 05:00 WBC 19.2 H RBC 3.13 L Hgb 8.0 L Hct 25.2 L MCV MCH 26 L MCHC RDW 22.1 H Plt Count Lymph % (Auto) [place] % (Auto) Lymph # [place] # Baso # Seg Neutrophils % Seg Neuts % (Manual) 92.0 H Lymphocytes % (Manual) 3.0 L Monocytes % (Manual) Eosinophils % (Manual) Basophils % (Manual) Nucleated RBC % Seg Neutrophils # Seg Neutrophils # Man 17.7 H Lymphocytes # (Manual) 0.6 L Monocytes # (Manual) Eosinophils # (Manual) Basophils # (Manual) PT INR Fibrinogen dRVVT Confirm Interp Factor V Activity POC ABG pH POC ABG pCO2 POC ABG pO2 ABG pO2 ABG HCO3 ABG Base Excess ABG Hemoglobin Oxyhemoglobin Sodium Potassium Chloride Carbon Dioxide BUN Creatinine Glucose POC Glucose 197 H 169 H Lactic Acid Calcium Phosphorus Magnesium Direct Bilirubin AST ALT Alkaline Phosphatase Lactate Dehydrogenase Troponin T C-Reactive Protein Total Protein Albumin Prealbumin Triglycerides Cholesterol LDL Cholesterol Direct HDL Cholesterol Urine pH Urine WBC (Auto) Urine Creatinine Urine Total Protein Fluid Total Protein Vancomycin Trough Rheumatoid Factor Complement C4 Miscellaneous Test Crossmatch 09/23/16 09/23/16 09/23/16 05:00 05:00 05:10 WBC RBC Hgb Hct MCV MCH MCHC RDW Plt Count Lymph % (Auto) [place] % (Auto) Lymph # [place] # Baso # Seg Neutrophils % Seg Neuts % (Manual) Lymphocytes % (Manual) Monocytes % (Manual) Eosinophils % (Manual) Basophils % (Manual) Nucleated RBC % Seg Neutrophils # Seg Neutrophils # Man Lymphocytes # (Manual) Monocytes # (Manual) Eosinophils # (Manual) Basophils # (Manual) PT INR Fibrinogen dRVVT Confirm Interp Factor V Activity POC ABG pH POC ABG pCO2 POC ABG pO2 ABG pO2 ABG HCO3 ABG Base Excess ABG Hemoglobin Oxyhemoglobin Sodium 147 H Potassium 3.2 L Chloride 115.7 H Carbon Dioxide 13 L BUN 111 H Creatinine 3.8 H Glucose 194 H POC Glucose 188 H Lactic Acid Calcium 7.3 L D Phosphorus Magnesium Direct Bilirubin AST ALT Alkaline Phosphatase Lactate Dehydrogenase Troponin T C-Reactive Protein 3.20 H Total Protein Albumin Prealbumin Triglycerides Cholesterol LDL Cholesterol Direct HDL Cholesterol Urine pH Urine WBC (Auto) Urine Creatinine Urine Total Protein Fluid Total Protein Vancomycin Trough Rheumatoid Factor Complement C4 Miscellaneous Test Crossmatch 09/23/16 09/23/16 09/23/16 11:37 12:29 18:01 WBC RBC Hgb Hct MCV MCH MCHC RDW Plt Count Lymph % (Auto) [place] % (Auto) Lymph # [place] # Baso # Seg Neutrophils % Seg Neuts % (Manual) Lymphocytes % (Manual) Monocytes % (Manual) Eosinophils % (Manual) Basophils % (Manual) Nucleated RBC % Seg Neutrophils # Seg Neutrophils # Man Lymphocytes # (Manual) Monocytes # (Manual) Eosinophils # (Manual) Basophils # (Manual) PT INR Fibrinogen dRVVT Confirm Interp Factor V Activity POC ABG pH POC ABG pCO2 18.9 L POC ABG pO2 143 H ABG pO2 ABG HCO3 ABG Base Excess ABG Hemoglobin Oxyhemoglobin Sodium Potassium Chloride Carbon Dioxide BUN Creatinine Glucose POC Glucose 153 H 108 H Lactic Acid Calcium Phosphorus Magnesium Direct Bilirubin AST ALT Alkaline Phosphatase Lactate Dehydrogenase Troponin T C-Reactive Protein Total Protein Albumin Prealbumin Triglycerides Cholesterol LDL Cholesterol Direct HDL Cholesterol Urine pH Urine WBC (Auto) Urine Creatinine Urine Total Protein Fluid Total Protein Vancomycin Trough Rheumatoid Factor Complement C4 Miscellaneous Test Crossmatch 09/23/16 09/23/16 09/24/16 21:19 23:43 05:16 WBC RBC Hgb Hct MCV MCH MCHC RDW Plt Count Lymph % (Auto) [place] % (Auto) Lymph # [place] # Baso # Seg Neutrophils % Seg Neuts % (Manual) Lymphocytes % (Manual) Monocytes % (Manual) Eosinophils % (Manual) Basophils % (Manual) Nucleated RBC % Seg Neutrophils # Seg Neutrophils # Man Lymphocytes # (Manual) Monocytes # (Manual) Eosinophils # (Manual) Basophils # (Manual) PT INR Fibrinogen dRVVT Confirm Interp Factor V Activity POC ABG pH POC ABG pCO2 17.3 L POC ABG pO2 112 H ABG pO2 ABG HCO3 ABG Base Excess ABG Hemoglobin Oxyhemoglobin Sodium Potassium Chloride Carbon Dioxide BUN Creatinine Glucose POC Glucose 143 H 164 H Lactic Acid Calcium Phosphorus Magnesium Direct Bilirubin AST ALT Alkaline Phosphatase Lactate Dehydrogenase Troponin T C-Reactive Protein Total Protein Albumin Prealbumin Triglycerides Cholesterol LDL Cholesterol Direct HDL Cholesterol Urine pH Urine WBC (Auto) Urine Creatinine Urine Total Protein Fluid Total Protein Vancomycin Trough Rheumatoid Factor Complement C4 Miscellaneous Test Crossmatch 09/24/16 09/24/16 09/24/16 05:21 11:58 17:06 WBC RBC Hgb Hct MCV MCH MCHC RDW Plt Count Lymph % (Auto) [place] % (Auto) Lymph # [place] # Baso # Seg Neutrophils % Seg Neuts % (Manual) Lymphocytes % (Manual) Monocytes % (Manual) Eosinophils % (Manual) Basophils % (Manual) Nucleated RBC % Seg Neutrophils # Seg Neutrophils # Man Lymphocytes # (Manual) Monocytes # (Manual) Eosinophils # (Manual) Basophils # (Manual) PT INR Fibrinogen dRVVT Confirm Interp Factor V Activity POC ABG pH POC ABG pCO2 POC ABG pO2 ABG pO2 ABG HCO3 ABG Base Excess ABG Hemoglobin Oxyhemoglobin Sodium Potassium Chloride Carbon Dioxide 10 L BUN 103 H Creatinine 4.3 H Glucose 163 H POC Glucose 173 H 167 H Lactic Acid Calcium 6.5 L Phosphorus Magnesium Direct Bilirubin AST ALT Alkaline Phosphatase Lactate Dehydrogenase Troponin T C-Reactive Protein Total Protein Albumin Prealbumin Triglycerides Cholesterol LDL Cholesterol Direct HDL Cholesterol Urine pH Urine WBC (Auto) Urine Creatinine Urine Total Protein Fluid Total Protein Vancomycin Trough Rheumatoid Factor Complement C4 Miscellaneous Test Crossmatch 09/24/16 09/24/16 09/24/16 20:15 21:02 23:48 WBC RBC Hgb Hct MCV MCH MCHC RDW Plt Count Lymph % (Auto) [place] % (Auto) Lymph # [place] # Baso # Seg Neutrophils % Seg Neuts % (Manual) Lymphocytes % (Manual) Monocytes % (Manual) Eosinophils % (Manual) Basophils % (Manual) Nucleated RBC % Seg Neutrophils # Seg Neutrophils # Man Lymphocytes # (Manual) Monocytes # (Manual) Eosinophils # (Manual) Basophils # (Manual) PT INR Fibrinogen dRVVT Confirm Interp Factor V Activity POC ABG pH 7.288 L POC ABG pCO2 30.2 L 21.5 L POC ABG pO2 32 L 39 L ABG pO2 ABG HCO3 ABG Base Excess ABG Hemoglobin Oxyhemoglobin Sodium Potassium Chloride Carbon Dioxide BUN Creatinine Glucose POC Glucose 109 H Lactic Acid Calcium Phosphorus Magnesium Direct Bilirubin AST ALT Alkaline Phosphatase Lactate Dehydrogenase Troponin T C-Reactive Protein Total Protein Albumin Prealbumin Triglycerides Cholesterol LDL Cholesterol Direct HDL Cholesterol Urine pH Urine WBC (Auto) Urine Creatinine Urine Total Protein Fluid Total Protein Vancomycin Trough Rheumatoid Factor Complement C4 Miscellaneous Test Crossmatch 09/25/16 09/25/16 09/25/16 04:20 04:20 04:20 WBC RBC 2.58 L Hgb 7.0 L Hct 21.0 L MCV MCH 27 L MCHC RDW 23.8 H Plt Count Lymph % (Auto) [place] % (Auto) Lymph # [place] # Baso # Seg Neutrophils % Seg Neuts % (Manual) Lymphocytes % (Manual) 12.0 L Monocytes % (Manual) Eosinophils % (Manual) 7.0 H Basophils % (Manual) 2.0 H Nucleated RBC % Seg Neutrophils # Seg Neutrophils # Man Lymphocytes # (Manual) 0.9 L Monocytes # (Manual) Eosinophils # (Manual) 0.5 H Basophils # (Manual) PT INR Fibrinogen dRVVT Confirm Interp Factor V Activity POC ABG pH POC ABG pCO2 POC ABG pO2 ABG pO2 ABG HCO3 ABG Base Excess ABG Hemoglobin Oxyhemoglobin Sodium Potassium Chloride Carbon Dioxide 15 L BUN 72 H Creatinine 3.8 H Glucose POC Glucose Lactic Acid Calcium 6.0 L Phosphorus 4.60 H Magnesium 1.60 L Direct Bilirubin AST ALT Alkaline Phosphatase Lactate Dehydrogenase Troponin T C-Reactive Protein Total Protein Albumin Prealbumin Triglycerides Cholesterol LDL Cholesterol Direct HDL Cholesterol Urine pH Urine WBC (Auto) Urine Creatinine Urine Total Protein Fluid Total Protein Vancomycin Trough Rheumatoid Factor Complement C4 Miscellaneous Test Crossmatch 09/25/16 09/25/16 09/25/16 04:57 08:02 10:30 WBC RBC Hgb Hct MCV MCH MCHC RDW Plt Count Lymph % (Auto) [place] % (Auto) Lymph # [place] # Baso # Seg Neutrophils % Seg Neuts % (Manual) Lymphocytes % (Manual) Monocytes % (Manual) Eosinophils % (Manual) Basophils % (Manual) Nucleated RBC % Seg Neutrophils # Seg Neutrophils # Man Lymphocytes # (Manual) Monocytes # (Manual) Eosinophils # (Manual) Basophils # (Manual) PT INR Fibrinogen dRVVT Confirm Interp Factor V Activity POC ABG pH POC ABG pCO2 24.7 L POC ABG pO2 152 H ABG pO2 ABG HCO3 ABG Base Excess ABG Hemoglobin Oxyhemoglobin Sodium Potassium Chloride Carbon Dioxide BUN Creatinine Glucose POC Glucose 113 H Lactic Acid Calcium Phosphorus Magnesium Direct Bilirubin AST ALT Alkaline Phosphatase Lactate Dehydrogenase Troponin T C-Reactive Protein Total Protein Albumin Prealbumin Triglycerides Cholesterol LDL Cholesterol Direct HDL Cholesterol Urine pH Urine WBC (Auto) Urine Creatinine Urine Total Protein Fluid Total Protein Vancomycin Trough Rheumatoid Factor Complement C4 Miscellaneous Test Crossmatch See Detail 09/25/16 09/25/16 09/25/16 12:05 17:44 23:47 WBC RBC Hgb Hct MCV MCH MCHC RDW Plt Count Lymph % (Auto) [place] % (Auto) Lymph # [place] # Baso # Seg Neutrophils % Seg Neuts % (Manual) Lymphocytes % (Manual) Monocytes % (Manual) Eosinophils % (Manual) Basophils % (Manual) Nucleated RBC % Seg Neutrophils # Seg Neutrophils # Man Lymphocytes # (Manual) Monocytes # (Manual) Eosinophils # (Manual) Basophils # (Manual) PT INR Fibrinogen dRVVT Confirm Interp Factor V Activity POC ABG pH POC ABG pCO2 POC ABG pO2 ABG pO2 ABG HCO3 ABG Base Excess ABG Hemoglobin Oxyhemoglobin Sodium Potassium Chloride Carbon Dioxide BUN Creatinine Glucose POC Glucose 117 H 119 H 150 H Lactic Acid Calcium Phosphorus Magnesium Direct Bilirubin AST ALT Alkaline Phosphatase Lactate Dehydrogenase Troponin T C-Reactive Protein Total Protein Albumin Prealbumin Triglycerides Cholesterol LDL Cholesterol Direct HDL Cholesterol Urine pH Urine WBC (Auto) Urine Creatinine Urine Total Protein Fluid Total Protein Vancomycin Trough Rheumatoid Factor Complement C4 Miscellaneous Test Crossmatch 09/26/16 09/26/16 09/26/16 04:25 04:25 04:25 WBC RBC 2.65 L Hgb 7.4 L Hct 21.6 L MCV MCH MCHC RDW 22.5 H Plt Count Lymph % (Auto) [place] % (Auto) Lymph # [place] # Baso # Seg Neutrophils % Seg Neuts % (Manual) Lymphocytes % (Manual) 6.0 L Monocytes % (Manual) Eosinophils % (Manual) 11.0 H Basophils % (Manual) Nucleated RBC % Seg Neutrophils # Seg Neutrophils # Man Lymphocytes # (Manual) 0.4 L Monocytes # (Manual) Eosinophils # (Manual) 0.6 H Basophils # (Manual) PT INR Fibrinogen dRVVT Confirm Interp Factor V Activity POC ABG pH POC ABG pCO2 POC ABG pO2 ABG pO2 ABG HCO3 ABG Base Excess ABG Hemoglobin Oxyhemoglobin Sodium Potassium Chloride 97.0 L Carbon Dioxide 19 L BUN 43 H Creatinine 2.6 H Glucose 130 H POC Glucose Lactic Acid 4.40 H* Calcium 6.7 L Phosphorus Magnesium Direct Bilirubin AST ALT Alkaline Phosphatase Lactate Dehydrogenase Troponin T C-Reactive Protein Total Protein Albumin Prealbumin Triglycerides Cholesterol LDL Cholesterol Direct HDL Cholesterol Urine pH Urine WBC (Auto) Urine Creatinine Urine Total Protein Fluid Total Protein Vancomycin Trough Rheumatoid Factor Complement C4 Miscellaneous Test Crossmatch 09/26/16 09/26/16 09/26/16 05:20 11:44 12:12 WBC RBC Hgb Hct MCV MCH MCHC RDW Plt Count Lymph % (Auto) [place] % (Auto) Lymph # [place] # Baso # Seg Neutrophils % Seg Neuts % (Manual) Lymphocytes % (Manual) Monocytes % (Manual) Eosinophils % (Manual) Basophils % (Manual) Nucleated RBC % Seg Neutrophils # Seg Neutrophils # Man Lymphocytes # (Manual) Monocytes # (Manual) Eosinophils # (Manual) Basophils # (Manual) PT INR Fibrinogen dRVVT Confirm Interp Factor V Activity POC ABG pH POC ABG pCO2 27.0 L POC ABG pO2 69 L ABG pO2 ABG HCO3 ABG Base Excess ABG Hemoglobin Oxyhemoglobin Sodium Potassium Chloride Carbon Dioxide BUN Creatinine Glucose POC Glucose 121 H 128 H Lactic Acid Calcium Phosphorus Magnesium Direct Bilirubin AST ALT Alkaline Phosphatase Lactate Dehydrogenase Troponin T C-Reactive Protein Total Protein Albumin Prealbumin Triglycerides Cholesterol LDL Cholesterol Direct HDL Cholesterol Urine pH Urine WBC (Auto) Urine Creatinine Urine Total Protein Fluid Total Protein Vancomycin Trough Rheumatoid Factor Complement C4 Miscellaneous Test Crossmatch 09/26/16 09/26/16 09/27/16 18:31 23:40 08:20 WBC RBC Hgb Hct MCV MCH MCHC RDW Plt Count Lymph % (Auto) [place] % (Auto) Lymph # [place] # Baso # Seg Neutrophils % Seg Neuts % (Manual) Lymphocytes % (Manual) Monocytes % (Manual) Eosinophils % (Manual) Basophils % (Manual) Nucleated RBC % Seg Neutrophils # Seg Neutrophils # Man Lymphocytes # (Manual) Monocytes # (Manual) Eosinophils # (Manual) Basophils # (Manual) PT INR Fibrinogen dRVVT Confirm Interp Factor V Activity POC ABG pH POC ABG pCO2 POC ABG pO2 ABG pO2 ABG HCO3 ABG Base Excess ABG Hemoglobin Oxyhemoglobin Sodium Potassium Chloride Carbon Dioxide BUN Creatinine Glucose POC Glucose 120 H 133 H Lactic Acid 4.10 H* Calcium Phosphorus Magnesium Direct Bilirubin AST ALT Alkaline Phosphatase Lactate Dehydrogenase Troponin T C-Reactive Protein Total Protein Albumin Prealbumin Triglycerides Cholesterol LDL Cholesterol Direct HDL Cholesterol Urine pH Urine WBC (Auto) Urine Creatinine Urine Total Protein Fluid Total Protein Vancomycin Trough Rheumatoid Factor Complement C4 Miscellaneous Test Crossmatch 09/27/16 09/27/16 09/27/16 11:23 15:00 18:15 WBC RBC Hgb Hct MCV MCH MCHC RDW Plt Count Lymph % (Auto) [place] % (Auto) Lymph # [place] # Baso # Seg Neutrophils % Seg Neuts % (Manual) Lymphocytes % (Manual) Monocytes % (Manual) Eosinophils % (Manual) Basophils % (Manual) Nucleated RBC % Seg Neutrophils # Seg Neutrophils # Man Lymphocytes # (Manual) Monocytes # (Manual) Eosinophils # (Manual) Basophils # (Manual) PT INR Fibrinogen dRVVT Confirm Interp Factor V Activity POC ABG pH 7.459 H POC ABG pCO2 27.1 L POC ABG pO2 140 H ABG pO2 ABG HCO3 ABG Base Excess ABG Hemoglobin Oxyhemoglobin Sodium Potassium Chloride Carbon Dioxide BUN Creatinine Glucose POC Glucose 114 H 127 H Lactic Acid Calcium Phosphorus Magnesium Direct Bilirubin AST ALT Alkaline Phosphatase Lactate Dehydrogenase Troponin T C-Reactive Protein Total Protein Albumin Prealbumin Triglycerides Cholesterol LDL Cholesterol Direct HDL Cholesterol Urine pH Urine WBC (Auto) Urine Creatinine Urine Total Protein Fluid Total Protein Vancomycin Trough Rheumatoid Factor Complement C4 Miscellaneous Test Crossmatch 09/27/16 09/27/16 09/28/16 Unknown Unknown 03:45 WBC RBC 2.49 L Hgb 6.8 L Hct 20.7 L MCV MCH 27 L MCHC RDW 22.1 H Plt Count Lymph % (Auto) [place] % (Auto) Lymph # [place] # Baso # Seg Neutrophils % Seg Neuts % (Manual) 32.0 L Lymphocytes % (Manual) 12.0 L Monocytes % (Manual) 11.0 H Eosinophils % (Manual) 10.0 H Basophils % (Manual) Nucleated RBC % Seg Neutrophils # Seg Neutrophils # Man Lymphocytes # (Manual) 1.0 L Monocytes # (Manual) 0.9 H Eosinophils # (Manual) 0.8 H Basophils # (Manual) PT INR Fibrinogen dRVVT Confirm Interp Factor V Activity POC ABG pH POC ABG pCO2 POC ABG pO2 ABG pO2 ABG HCO3 ABG Base Excess ABG Hemoglobin Oxyhemoglobin Sodium 135 L 135 L Potassium 3.5 L Chloride 93.6 L 94.4 L Carbon Dioxide 17 L 21 L BUN 45 H 28 H Creatinine 3.3 H 2.5 H Glucose 106 H POC Glucose Lactic Acid Calcium 7.3 L 7.1 L Phosphorus Magnesium Direct Bilirubin AST ALT Alkaline Phosphatase Lactate Dehydrogenase Troponin T C-Reactive Protein Total Protein Albumin Prealbumin Triglycerides Cholesterol LDL Cholesterol Direct HDL Cholesterol Urine pH Urine WBC (Auto) Urine Creatinine Urine Total Protein Fluid Total Protein Vancomycin Trough Rheumatoid Factor Complement C4 Miscellaneous Test Crossmatch 09/28/16 09/28/16 09/28/16 03:45 07:25 11:58 WBC 13.3 H RBC 3.01 L Hgb 8.4 L Hct 25.0 L MCV MCH MCHC RDW 20.5 H Plt Count 128 L Lymph % (Auto) [place] % (Auto) Lymph # [place] # Baso # Seg Neutrophils % Seg Neuts % (Manual) Lymphocytes % (Manual) 7.0 L Monocytes % (Manual) Eosinophils % (Manual) 6.0 H Basophils % (Manual) Nucleated RBC % Seg Neutrophils # Seg Neutrophils # Man Lymphocytes # (Manual) 0.9 L Monocytes # (Manual) Eosinophils # (Manual) 0.8 H Basophils # (Manual) PT INR Fibrinogen dRVVT Confirm Interp Factor V Activity POC ABG pH POC ABG pCO2 POC ABG pO2 ABG pO2 ABG HCO3 ABG Base Excess ABG Hemoglobin Oxyhemoglobin Sodium Potassium Chloride Carbon Dioxide BUN Creatinine Glucose POC Glucose 121 H Lactic Acid 4.50 H* Calcium Phosphorus Magnesium Direct Bilirubin AST ALT Alkaline Phosphatase Lactate Dehydrogenase Troponin T C-Reactive Protein Total Protein Albumin Prealbumin Triglycerides Cholesterol LDL Cholesterol Direct HDL Cholesterol Urine pH Urine WBC (Auto) Urine Creatinine Urine Total Protein Fluid Total Protein Vancomycin Trough Rheumatoid Factor Complement C4 Miscellaneous Test Crossmatch 09/29/16 09/29/16 09/29/16 06:45 06:45 06:45 WBC 14.9 H RBC 2.74 L Hgb 7.6 L Hct 23.2 L MCV MCH MCHC RDW 20.5 H Plt Count 81 L Lymph % (Auto) [place] % (Auto) Lymph # [place] # Baso # Seg Neutrophils % Seg Neuts % (Manual) 81.0 H Lymphocytes % (Manual) 4.0 L Monocytes % (Manual) Eosinophils % (Manual) Basophils % (Manual) Nucleated RBC % Seg Neutrophils # Seg Neutrophils # Man 12.1 H Lymphocytes # (Manual) 0.6 L Monocytes # (Manual) Eosinophils # (Manual) Basophils # (Manual) PT INR Fibrinogen dRVVT Confirm Interp Factor V Activity POC ABG pH POC ABG pCO2 POC ABG pO2 ABG pO2 ABG HCO3 ABG Base Excess ABG Hemoglobin Oxyhemoglobin Sodium 133 L Potassium 3.4 L Chloride 92.5 L Carbon Dioxide 21 L BUN 33 H Creatinine 3.0 H Glucose POC Glucose Lactic Acid Calcium 6.6 L Phosphorus Magnesium 1.40 L Direct Bilirubin 0.9 H AST ALT Alkaline Phosphatase Lactate Dehydrogenase Troponin T C-Reactive Protein Total Protein 4.3 L Albumin 1.3 L Prealbumin Triglycerides Cholesterol LDL Cholesterol Direct HDL Cholesterol Urine pH Urine WBC (Auto) Urine Creatinine Urine Total Protein Fluid Total Protein Vancomycin Trough Rheumatoid Factor Complement C4 Miscellaneous Test Crossmatch 09/29/16 09/29/16 09/30/16 17:52 20:12 00:07 WBC RBC Hgb Hct MCV MCH MCHC RDW Plt Count Lymph % (Auto) [place] % (Auto) Lymph # [place] # Baso # Seg Neutrophils % Seg Neuts % (Manual) Lymphocytes % (Manual) Monocytes % (Manual) Eosinophils % (Manual) Basophils % (Manual) Nucleated RBC % Seg Neutrophils # Seg Neutrophils # Man Lymphocytes # (Manual) Monocytes # (Manual) Eosinophils # (Manual) Basophils # (Manual) PT INR Fibrinogen dRVVT Confirm Interp Factor V Activity POC ABG pH POC ABG pCO2 POC ABG pO2 ABG pO2 ABG HCO3 ABG Base Excess ABG Hemoglobin Oxyhemoglobin Sodium Potassium Chloride Carbon Dioxide BUN Creatinine Glucose POC Glucose 50 L 51 L Lactic Acid Calcium Phosphorus Magnesium Direct Bilirubin AST ALT Alkaline Phosphatase Lactate Dehydrogenase Troponin T 0.204 H* C-Reactive Protein Total Protein Albumin Prealbumin Triglycerides Cholesterol 31 L LDL Cholesterol Direct 4 L HDL Cholesterol 3 L Urine pH Urine WBC (Auto) Urine Creatinine Urine Total Protein Fluid Total Protein Vancomycin Trough Rheumatoid Factor Complement C4 Miscellaneous Test Crossmatch 09/30/16 09/30/16 09/30/16 01:30 05:15 06:10 WBC RBC Hgb Hct MCV MCH MCHC RDW Plt Count Lymph % (Auto) [place] % (Auto) Lymph # [place] # Baso # Seg Neutrophils % Seg Neuts % (Manual) Lymphocytes % (Manual) Monocytes % (Manual) Eosinophils % (Manual) Basophils % (Manual) Nucleated RBC % Seg Neutrophils # Seg Neutrophils # Man Lymphocytes # (Manual) Monocytes # (Manual) Eosinophils # (Manual) Basophils # (Manual) PT INR Fibrinogen dRVVT Confirm Interp Factor V Activity POC ABG pH POC ABG pCO2 POC ABG pO2 ABG pO2 ABG HCO3 ABG Base Excess ABG Hemoglobin Oxyhemoglobin Sodium 133 L Potassium 3.2 L Chloride 93.2 L Carbon Dioxide 19 L BUN 36 H Creatinine 3.2 H Glucose 104 H POC Glucose 167 H 146 H Lactic Acid Calcium 6.4 L Phosphorus Magnesium 1.60 L Direct Bilirubin AST ALT Alkaline Phosphatase Lactate Dehydrogenase Troponin T C-Reactive Protein Total Protein Albumin Prealbumin Triglycerides Cholesterol LDL Cholesterol Direct HDL Cholesterol Urine pH Urine WBC (Auto) Urine Creatinine Urine Total Protein Fluid Total Protein Vancomycin Trough Rheumatoid Factor Complement C4 Miscellaneous Test Crossmatch 09/30/16 09/30/16 09/30/16 11:26 13:39 18:38 WBC RBC Hgb Hct MCV MCH MCHC RDW Plt Count Lymph % (Auto) [place] % (Auto) Lymph # [place] # Baso # Seg Neutrophils % Seg Neuts % (Manual) Lymphocytes % (Manual) Monocytes % (Manual) Eosinophils % (Manual) Basophils % (Manual) Nucleated RBC % Seg Neutrophils # Seg Neutrophils # Man Lymphocytes # (Manual) Monocytes # (Manual) Eosinophils # (Manual) Basophils # (Manual) PT INR Fibrinogen dRVVT Confirm Interp Factor V Activity POC ABG pH 7.479 H POC ABG pCO2 29.8 L POC ABG pO2 117 H ABG pO2 ABG HCO3 ABG Base Excess ABG Hemoglobin Oxyhemoglobin Sodium Potassium Chloride Carbon Dioxide BUN Creatinine Glucose POC Glucose 140 H 122 H Lactic Acid Calcium Phosphorus Magnesium Direct Bilirubin AST ALT Alkaline Phosphatase Lactate Dehydrogenase Troponin T C-Reactive Protein Total Protein Albumin Prealbumin Triglycerides Cholesterol LDL Cholesterol Direct HDL Cholesterol Urine pH Urine WBC (Auto) Urine Creatinine Urine Total Protein Fluid Total Protein Vancomycin Trough Rheumatoid Factor Complement C4 Miscellaneous Test Crossmatch 10/01/16 10/01/16 10/01/16 06:00 06:00 12:37 WBC 12.6 H RBC 2.75 L Hgb 7.3 L Hct 23.3 L MCV MCH 27 L MCHC RDW 20.6 H Plt Count 72 L Lymph % (Auto) [place] % (Auto) Lymph # [place] # Baso # Seg Neutrophils % Seg Neuts % (Manual) 31.0 L Lymphocytes % (Manual) 8.0 L Monocytes % (Manual) Eosinophils % (Manual) Basophils % (Manual) Nucleated RBC % 3.0 H Seg Neutrophils # Seg Neutrophils # Man Lymphocytes # (Manual) 1.0 L Monocytes # (Manual) Eosinophils # (Manual) Basophils # (Manual) PT INR Fibrinogen dRVVT Confirm Interp Factor V Activity POC ABG pH POC ABG pCO2 POC ABG pO2 ABG pO2 ABG HCO3 ABG Base Excess ABG Hemoglobin Oxyhemoglobin Sodium 127 L Potassium Chloride 86.8 L Carbon Dioxide 20 L BUN 42 H Creatinine 3.5 H Glucose POC Glucose 65 L Lactic Acid Calcium 7.0 L Phosphorus Magnesium Direct Bilirubin AST ALT Alkaline Phosphatase Lactate Dehydrogenase Troponin T C-Reactive Protein Total Protein Albumin Prealbumin Triglycerides Cholesterol LDL Cholesterol Direct HDL Cholesterol Urine pH Urine WBC (Auto) Urine Creatinine Urine Total Protein Fluid Total Protein Vancomycin Trough Rheumatoid Factor Complement C4 Miscellaneous Test Crossmatch 10/01/16 10/01/16 10/02/16 17:39 23:32 00:59 WBC RBC Hgb Hct MCV MCH MCHC RDW Plt Count Lymph % (Auto) [place] % (Auto) Lymph # [place] # Baso # Seg Neutrophils % Seg Neuts % (Manual) Lymphocytes % (Manual) Monocytes % (Manual) Eosinophils % (Manual) Basophils % (Manual) Nucleated RBC % Seg Neutrophils # Seg Neutrophils # Man Lymphocytes # (Manual) Monocytes # (Manual) Eosinophils # (Manual) Basophils # (Manual) PT INR Fibrinogen dRVVT Confirm Interp Factor V Activity POC ABG pH POC ABG pCO2 POC ABG pO2 ABG pO2 ABG HCO3 ABG Base Excess ABG Hemoglobin Oxyhemoglobin Sodium Potassium Chloride Carbon Dioxide BUN Creatinine Glucose POC Glucose 107 H 52 L 145 H Lactic Acid Calcium Phosphorus Magnesium Direct Bilirubin AST ALT Alkaline Phosphatase Lactate Dehydrogenase Troponin T C-Reactive Protein Total Protein Albumin Prealbumin Triglycerides Cholesterol LDL Cholesterol Direct HDL Cholesterol Urine pH Urine WBC (Auto) Urine Creatinine Urine Total Protein Fluid Total Protein Vancomycin Trough Rheumatoid Factor Complement C4 Miscellaneous Test Crossmatch 10/02/16 10/02/16 10/02/16 10:30 10:50 10:50 WBC 14.7 H RBC 2.76 L Hgb 7.4 L Hct 23.6 L MCV MCH 27 L MCHC RDW 20.2 H Plt Count 79 L Lymph % (Auto) [place] % (Auto) Lymph # [place] # Baso # Seg Neutrophils % Seg Neuts % (Manual) 86.0 H Lymphocytes % (Manual) 6.0 L Monocytes % (Manual) Eosinophils % (Manual) Basophils % (Manual) Nucleated RBC % Seg Neutrophils # Seg Neutrophils # Man 12.6 H Lymphocytes # (Manual) 0.9 L Monocytes # (Manual) Eosinophils # (Manual) Basophils # (Manual) PT INR Fibrinogen dRVVT Confirm Interp Factor V Activity POC ABG pH 7.486 H POC ABG pCO2 30.1 L POC ABG pO2 108 H ABG pO2 ABG HCO3 ABG Base Excess ABG Hemoglobin Oxyhemoglobin Sodium 131 L Potassium 3.4 L Chloride 89.9 L Carbon Dioxide BUN 26 H Creatinine 2.6 H Glucose POC Glucose Lactic Acid Calcium 7.0 L Phosphorus Magnesium Direct Bilirubin AST ALT Alkaline Phosphatase Lactate Dehydrogenase Troponin T C-Reactive Protein Total Protein Albumin Prealbumin Triglycerides Cholesterol LDL Cholesterol Direct HDL Cholesterol Urine pH Urine WBC (Auto) Urine Creatinine Urine Total Protein Fluid Total Protein Vancomycin Trough Rheumatoid Factor Complement C4 Miscellaneous Test Crossmatch 10/02/16 10/03/16 10/03/16 23:45 00:45 05:10 WBC 12.9 H RBC 2.77 L Hgb 7.6 L Hct 23.7 L MCV MCH 27 L MCHC RDW 19.7 H Plt Count 89 L Lymph % (Auto) [place] % (Auto) Lymph # [place] # Baso # Seg Neutrophils % Seg Neuts % (Manual) Lymphocytes % (Manual) 8.0 L Monocytes % (Manual) Eosinophils % (Manual) Basophils % (Manual) Nucleated RBC % Seg Neutrophils # 11.9 H Seg Neutrophils # Man Lymphocytes # (Manual) 1.0 L Monocytes # (Manual) Eosinophils # (Manual) Basophils # (Manual) PT INR Fibrinogen dRVVT Confirm Interp Factor V Activity POC ABG pH POC ABG pCO2 POC ABG pO2 ABG pO2 ABG HCO3 ABG Base Excess ABG Hemoglobin Oxyhemoglobin Sodium Potassium Chloride Carbon Dioxide BUN Creatinine Glucose POC Glucose 55 L 199 H Lactic Acid Calcium Phosphorus Magnesium Direct Bilirubin AST ALT Alkaline Phosphatase Lactate Dehydrogenase Troponin T C-Reactive Protein Total Protein Albumin Prealbumin Triglycerides Cholesterol LDL Cholesterol Direct HDL Cholesterol Urine pH Urine WBC (Auto) Urine Creatinine Urine Total Protein Fluid Total Protein Vancomycin Trough Rheumatoid Factor Complement C4 Miscellaneous Test Crossmatch 10/03/16 10/03/16 10/03/16 05:10 12:14 13:18 WBC RBC Hgb Hct MCV MCH MCHC RDW Plt Count Lymph % (Auto) [place] % (Auto) Lymph # [place] # Baso # Seg Neutrophils % Seg Neuts % (Manual) Lymphocytes % (Manual) Monocytes % (Manual) Eosinophils % (Manual) Basophils % (Manual) Nucleated RBC % Seg Neutrophils # Seg Neutrophils # Man Lymphocytes # (Manual) Monocytes # (Manual) Eosinophils # (Manual) Basophils # (Manual) PT INR Fibrinogen dRVVT Confirm Interp Factor V Activity POC ABG pH POC ABG pCO2 POC ABG pO2 ABG pO2 ABG HCO3 ABG Base Excess ABG Hemoglobin Oxyhemoglobin Sodium 129 L Potassium 3.3 L Chloride 88.8 L Carbon Dioxide 20 L BUN 29 H Creatinine 2.8 H Glucose POC Glucose 68 L 127 H Lactic Acid Calcium 7.2 L Phosphorus Magnesium Direct Bilirubin AST ALT Alkaline Phosphatase Lactate Dehydrogenase Troponin T C-Reactive Protein Total Protein Albumin Prealbumin Triglycerides Cholesterol LDL Cholesterol Direct HDL Cholesterol Urine pH Urine WBC (Auto) Urine Creatinine Urine Total Protein Fluid Total Protein Vancomycin Trough Rheumatoid Factor Complement C4 Miscellaneous Test Crossmatch 10/03/16 10/03/16 10/03/16 14:42 18:21 19:09 WBC RBC Hgb Hct MCV MCH MCHC RDW Plt Count Lymph % (Auto) [place] % (Auto) Lymph # [place] # Baso # Seg Neutrophils % Seg Neuts % (Manual) Lymphocytes % (Manual) Monocytes % (Manual) Eosinophils % (Manual) Basophils % (Manual) Nucleated RBC % Seg Neutrophils # Seg Neutrophils # Man Lymphocytes # (Manual) Monocytes # (Manual) Eosinophils # (Manual) Basophils # (Manual) PT INR Fibrinogen dRVVT Confirm Interp Factor V Activity POC ABG pH 7.499 H POC ABG pCO2 28.4 L POC ABG pO2 44 L ABG pO2 ABG HCO3 ABG Base Excess ABG Hemoglobin Oxyhemoglobin Sodium Potassium Chloride Carbon Dioxide BUN Creatinine Glucose POC Glucose 64 L 205 H Lactic Acid Calcium Phosphorus Magnesium Direct Bilirubin AST ALT Alkaline Phosphatase Lactate Dehydrogenase Troponin T C-Reactive Protein Total Protein Albumin Prealbumin Triglycerides Cholesterol LDL Cholesterol Direct HDL Cholesterol Urine pH Urine WBC (Auto) Urine Creatinine Urine Total Protein Fluid Total Protein Vancomycin Trough Rheumatoid Factor Complement C4 Miscellaneous Test Crossmatch 10/03/16 10/04/16 10/04/16 23:33 04:18 06:30 WBC RBC 2.54 L Hgb 7.1 L Hct 21.7 L MCV MCH MCHC RDW 19.5 H Plt Count 76 L Lymph % (Auto) [place] % (Auto) Lymph # [place] # Baso # Seg Neutrophils % Seg Neuts % (Manual) 88.0 H Lymphocytes % (Manual) 6.0 L Monocytes % (Manual) Eosinophils % (Manual) Basophils % (Manual) Nucleated RBC % Seg Neutrophils # Seg Neutrophils # Man 8.8 H Lymphocytes # (Manual) 0.6 L Monocytes # (Manual) Eosinophils # (Manual) Basophils # (Manual) PT INR Fibrinogen dRVVT Confirm Interp Factor V Activity POC ABG pH 7.461 H POC ABG pCO2 33.6 L POC ABG pO2 211 H ABG pO2 ABG HCO3 ABG Base Excess ABG Hemoglobin Oxyhemoglobin Sodium Potassium Chloride Carbon Dioxide BUN Creatinine Glucose POC Glucose 136 H Lactic Acid Calcium Phosphorus Magnesium Direct Bilirubin AST ALT Alkaline Phosphatase Lactate Dehydrogenase Troponin T C-Reactive Protein Total Protein Albumin Prealbumin Triglycerides Cholesterol LDL Cholesterol Direct HDL Cholesterol Urine pH Urine WBC (Auto) Urine Creatinine Urine Total Protein Fluid Total Protein Vancomycin Trough Rheumatoid Factor Complement C4 Miscellaneous Test Crossmatch 10/04/16 10/04/16 10/04/16 06:30 11:45 17:54 WBC RBC Hgb Hct MCV MCH MCHC RDW Plt Count Lymph % (Auto) [place] % (Auto) Lymph # [place] # Baso # Seg Neutrophils % Seg Neuts % (Manual) Lymphocytes % (Manual) Monocytes % (Manual) Eosinophils % (Manual) Basophils % (Manual) Nucleated RBC % Seg Neutrophils # Seg Neutrophils # Man Lymphocytes # (Manual) Monocytes # (Manual) Eosinophils # (Manual) Basophils # (Manual) PT INR Fibrinogen dRVVT Confirm Interp Factor V Activity POC ABG pH POC ABG pCO2 POC ABG pO2 ABG pO2 ABG HCO3 ABG Base Excess ABG Hemoglobin Oxyhemoglobin Sodium 128 L Potassium Chloride 87.4 L Carbon Dioxide 20 L BUN 34 H Creatinine 2.9 H Glucose 127 H POC Glucose 158 H 160 H Lactic Acid Calcium 7.4 L Phosphorus Magnesium Direct Bilirubin AST ALT Alkaline Phosphatase Lactate Dehydrogenase Troponin T C-Reactive Protein Total Protein Albumin Prealbumin Triglycerides Cholesterol LDL Cholesterol Direct HDL Cholesterol Urine pH Urine WBC (Auto) Urine Creatinine Urine Total Protein Fluid Total Protein Vancomycin Trough Rheumatoid Factor Complement C4 Miscellaneous Test Crossmatch 10/04/16 10/05/16 10/05/16 23:25 04:30 05:00 WBC RBC 2.64 L Hgb 7.5 L Hct 22.6 L MCV MCH MCHC RDW 19.3 H Plt Count 80 L Lymph % (Auto) [place] % (Auto) Lymph # [place] # Baso # Seg Neutrophils % Seg Neuts % (Manual) Lymphocytes % (Manual) 12.0 L Monocytes % (Manual) Eosinophils % (Manual) Basophils % (Manual) Nucleated RBC % Seg Neutrophils # Seg Neutrophils # Man Lymphocytes # (Manual) Monocytes # (Manual) Eosinophils # (Manual) Basophils # (Manual) PT INR Fibrinogen dRVVT Confirm Interp Factor V Activity POC ABG pH 7.475 H POC ABG pCO2 33.3 L POC ABG pO2 140 H ABG pO2 ABG HCO3 ABG Base Excess ABG Hemoglobin Oxyhemoglobin Sodium Potassium Chloride Carbon Dioxide BUN Creatinine Glucose POC Glucose 141 H Lactic Acid Calcium Phosphorus Magnesium Direct Bilirubin AST ALT Alkaline Phosphatase Lactate Dehydrogenase Troponin T C-Reactive Protein Total Protein Albumin Prealbumin Triglycerides Cholesterol LDL Cholesterol Direct HDL Cholesterol Urine pH Urine WBC (Auto) Urine Creatinine Urine Total Protein Fluid Total Protein Vancomycin Trough Rheumatoid Factor Complement C4 Miscellaneous Test Crossmatch 10/05/16 10/05/16 10/05/16 05:00 05:09 12:58 WBC RBC Hgb Hct MCV MCH MCHC RDW Plt Count Lymph % (Auto) [place] % (Auto) Lymph # [place] # Baso # Seg Neutrophils % Seg Neuts % (Manual) Lymphocytes % (Manual) Monocytes % (Manual) Eosinophils % (Manual) Basophils % (Manual) Nucleated RBC % Seg Neutrophils # Seg Neutrophils # Man Lymphocytes # (Manual) Monocytes # (Manual) Eosinophils # (Manual) Basophils # (Manual) PT INR Fibrinogen dRVVT Confirm Interp Factor V Activity POC ABG pH POC ABG pCO2 POC ABG pO2 ABG pO2 ABG HCO3 ABG Base Excess ABG Hemoglobin Oxyhemoglobin Sodium 131 L Potassium Chloride 94.0 L Carbon Dioxide 20 L BUN 22 H Creatinine 2.0 H Glucose 123 H POC Glucose 166 H 179 H Lactic Acid Calcium 7.7 L Phosphorus 2.20 L D Magnesium Direct Bilirubin AST ALT Alkaline Phosphatase Lactate Dehydrogenase Troponin T C-Reactive Protein Total Protein Albumin Prealbumin Triglycerides Cholesterol LDL Cholesterol Direct HDL Cholesterol Urine pH Urine WBC (Auto) Urine Creatinine Urine Total Protein Fluid Total Protein Vancomycin Trough Rheumatoid Factor Complement C4 Miscellaneous Test Crossmatch 10/05/16 10/05/16 10/05/16 15:50 18:53 23:12 WBC RBC Hgb Hct MCV MCH MCHC RDW Plt Count Lymph % (Auto) [place] % (Auto) Lymph # [place] # Baso # Seg Neutrophils % Seg Neuts % (Manual) Lymphocytes % (Manual) Monocytes % (Manual) Eosinophils % (Manual) Basophils % (Manual) Nucleated RBC % Seg Neutrophils # Seg Neutrophils # Man Lymphocytes # (Manual) Monocytes # (Manual) Eosinophils # (Manual) Basophils # (Manual) PT INR Fibrinogen dRVVT Confirm Interp Factor V Activity POC ABG pH POC ABG pCO2 POC ABG pO2 ABG pO2 ABG HCO3 ABG Base Excess ABG Hemoglobin Oxyhemoglobin Sodium Potassium Chloride Carbon Dioxide BUN Creatinine Glucose POC Glucose 150 H 164 H Lactic Acid Calcium Phosphorus Magnesium Direct Bilirubin AST ALT Alkaline Phosphatase Lactate Dehydrogenase Troponin T C-Reactive Protein Total Protein Albumin Prealbumin Triglycerides Cholesterol LDL Cholesterol Direct HDL Cholesterol Urine pH Urine WBC (Auto) Urine Creatinine Urine Total Protein Fluid Total Protein Vancomycin Trough Rheumatoid Factor Complement C4 Miscellaneous Test Crossmatch See Detail 10/06/16 10/06/16 10/06/16 03:50 03:50 04:53 WBC RBC 3.00 L Hgb 8.6 L Hct 25.8 L MCV MCH MCHC RDW 17.9 H Plt Count 65 L Lymph % (Auto) [place] % (Auto) Lymph # [place] # Baso # Seg Neutrophils % Seg Neuts % (Manual) 30.0 L Lymphocytes % (Manual) 5.0 L Monocytes % (Manual) Eosinophils % (Manual) Basophils % (Manual) Nucleated RBC % Seg Neutrophils # Seg Neutrophils # Man Lymphocytes # (Manual) 0.4 L Monocytes # (Manual) Eosinophils # (Manual) Basophils # (Manual) PT INR Fibrinogen dRVVT Confirm Interp Factor V Activity POC ABG pH 7.310 L POC ABG pCO2 49.0 H POC ABG pO2 ABG pO2 ABG HCO3 ABG Base Excess ABG Hemoglobin Oxyhemoglobin Sodium 133 L Potassium Chloride 95.9 L Carbon Dioxide BUN 26 H Creatinine 2.0 H Glucose 116 H POC Glucose Lactic Acid Calcium 7.8 L Phosphorus Magnesium Direct Bilirubin AST ALT Alkaline Phosphatase Lactate Dehydrogenase Troponin T C-Reactive Protein Total Protein Albumin Prealbumin Triglycerides Cholesterol LDL Cholesterol Direct HDL Cholesterol Urine pH Urine WBC (Auto) Urine Creatinine Urine Total Protein Fluid Total Protein Vancomycin Trough Rheumatoid Factor Complement C4 Miscellaneous Test Crossmatch 10/06/16 10/06/16 10/06/16 05:23 11:52 18:34 WBC RBC Hgb Hct MCV MCH MCHC RDW Plt Count Lymph % (Auto) [place] % (Auto) Lymph # [place] # Baso # Seg Neutrophils % Seg Neuts % (Manual) Lymphocytes % (Manual) Monocytes % (Manual) Eosinophils % (Manual) Basophils % (Manual) Nucleated RBC % Seg Neutrophils # Seg Neutrophils # Man Lymphocytes # (Manual) Monocytes # (Manual) Eosinophils # (Manual) Basophils # (Manual) PT INR Fibrinogen dRVVT Confirm Interp Factor V Activity POC ABG pH POC ABG pCO2 POC ABG pO2 ABG pO2 ABG HCO3 ABG Base Excess ABG Hemoglobin Oxyhemoglobin Sodium Potassium Chloride Carbon Dioxide BUN Creatinine Glucose POC Glucose 126 H 116 H 129 H Lactic Acid Calcium Phosphorus Magnesium Direct Bilirubin AST ALT Alkaline Phosphatase Lactate Dehydrogenase Troponin T C-Reactive Protein Total Protein Albumin Prealbumin Triglycerides Cholesterol LDL Cholesterol Direct HDL Cholesterol Urine pH Urine WBC (Auto) Urine Creatinine Urine Total Protein Fluid Total Protein Vancomycin Trough Rheumatoid Factor Complement C4 Miscellaneous Test Crossmatch 10/07/16 10/07/16 10/07/16 03:45 05:00 10:00 WBC 17.0 H RBC 2.68 L Hgb 7.3 L Hct 25.3 L MCV MCH 27 L MCHC 29 L RDW 19.6 H Plt Count 74 L Lymph % (Auto) [place] % (Auto) Lymph # [place] # Baso # Seg Neutrophils % Seg Neuts % (Manual) Lymphocytes % (Manual) 12.0 L Monocytes % (Manual) Eosinophils % (Manual) Basophils % (Manual) Nucleated RBC % 4.0 H Seg Neutrophils # Seg Neutrophils # Man 10.7 H Lymphocytes # (Manual) Monocytes # (Manual) Eosinophils # (Manual) Basophils # (Manual) PT INR Fibrinogen dRVVT Confirm Interp Factor V Activity POC ABG pH POC ABG pCO2 POC ABG pO2 ABG pO2 ABG HCO3 ABG Base Excess ABG Hemoglobin Oxyhemoglobin Sodium 130 L Potassium 3.2 L Chloride 93.9 L Carbon Dioxide 20 L BUN 44 H Creatinine 2.7 H Glucose 129 H POC Glucose Lactic Acid Calcium 7.4 L Phosphorus Magnesium Direct Bilirubin AST ALT 6 L Alkaline Phosphatase 195 H Lactate Dehydrogenase Troponin T C-Reactive Protein Total Protein 4.9 L Albumin 1.0 L Prealbumin Triglycerides Cholesterol LDL Cholesterol Direct HDL Cholesterol Urine pH Urine WBC (Auto) Urine Creatinine Urine Total Protein Fluid Total Protein Vancomycin Trough Rheumatoid Factor Complement C4 Miscellaneous Test Flexitest 1 H Crossmatch 10/07/16 10/07/16 10/07/16 10:00 11:24 18:10 WBC RBC Hgb Hct MCV MCH MCHC RDW Plt Count Lymph % (Auto) [place] % (Auto) Lymph # [place] # Baso # Seg Neutrophils % Seg Neuts % (Manual) Lymphocytes % (Manual) Monocytes % (Manual) Eosinophils % (Manual) Basophils % (Manual) Nucleated RBC % Seg Neutrophils # Seg Neutrophils # Man Lymphocytes # (Manual) Monocytes # (Manual) Eosinophils # (Manual) Basophils # (Manual) PT INR Fibrinogen dRVVT Confirm Interp Factor V Activity POC ABG pH POC ABG pCO2 POC ABG pO2 ABG pO2 ABG HCO3 ABG Base Excess ABG Hemoglobin Oxyhemoglobin Sodium Potassium Chloride Carbon Dioxide BUN Creatinine Glucose POC Glucose 116 H 130 H Lactic Acid Calcium Phosphorus Magnesium Direct Bilirubin AST ALT Alkaline Phosphatase Lactate Dehydrogenase Troponin T C-Reactive Protein 19.40 H Total Protein Albumin Prealbumin Triglycerides Cholesterol LDL Cholesterol Direct HDL Cholesterol Urine pH Urine WBC (Auto) Urine Creatinine Urine Total Protein Fluid Total Protein Vancomycin Trough Rheumatoid Factor Complement C4 Miscellaneous Test Crossmatch 10/07/16 10/08/16 10/08/16 18:30 00:00 04:00 WBC RBC Hgb Hct MCV MCH MCHC RDW Plt Count Lymph % (Auto) [place] % (Auto) Lymph # [place] # Baso # Seg Neutrophils % Seg Neuts % (Manual) Lymphocytes % (Manual) Monocytes % (Manual) Eosinophils % (Manual) Basophils % (Manual) Nucleated RBC % Seg Neutrophils # Seg Neutrophils # Man Lymphocytes # (Manual) Monocytes # (Manual) Eosinophils # (Manual) Basophils # (Manual) PT INR Fibrinogen dRVVT Confirm Interp Factor V Activity POC ABG pH POC ABG pCO2 POC ABG pO2 ABG pO2 ABG HCO3 ABG Base Excess ABG Hemoglobin Oxyhemoglobin Sodium 132 L Potassium 3.3 L Chloride 93.6 L Carbon Dioxide 17 L BUN 59 H Creatinine 2.7 H Glucose 121 H POC Glucose 122 H Lactic Acid Calcium 7.6 L Phosphorus Magnesium Direct Bilirubin AST ALT Alkaline Phosphatase Lactate Dehydrogenase Troponin T C-Reactive Protein Total Protein Albumin Prealbumin Triglycerides Cholesterol LDL Cholesterol Direct HDL Cholesterol Urine pH Urine WBC (Auto) > 182.0 H Urine Creatinine Urine Total Protein Fluid Total Protein Vancomycin Trough Rheumatoid Factor Complement C4 Miscellaneous Test Crossmatch 10/08/16 10/08/16 10/08/16 04:30 05:30 11:51 WBC RBC 5.15 H Hgb 14.4 H D Hct 44.5 H D MCV MCH MCHC RDW 19.5 H Plt Count 56 L Lymph % (Auto) [place] % (Auto) Lymph # [place] # Baso # Seg Neutrophils % Seg Neuts % (Manual) 24.0 L Lymphocytes % (Manual) 8.0 L Monocytes % (Manual) Eosinophils % (Manual) Basophils % (Manual) Nucleated RBC % 9.0 H Seg Neutrophils # Seg Neutrophils # Man Lymphocytes # (Manual) 0.7 L Monocytes # (Manual) Eosinophils # (Manual) Basophils # (Manual) PT INR Fibrinogen dRVVT Confirm Interp Factor V Activity POC ABG pH POC ABG pCO2 POC ABG pO2 ABG pO2 ABG HCO3 ABG Base Excess ABG Hemoglobin Oxyhemoglobin Sodium Potassium Chloride Carbon Dioxide BUN Creatinine Glucose POC Glucose 125 H 150 H Lactic Acid Calcium Phosphorus Magnesium Direct Bilirubin AST ALT Alkaline Phosphatase Lactate Dehydrogenase Troponin T C-Reactive Protein Total Protein Albumin Prealbumin Triglycerides Cholesterol LDL Cholesterol Direct HDL Cholesterol Urine pH Urine WBC (Auto) Urine Creatinine Urine Total Protein Fluid Total Protein Vancomycin Trough Rheumatoid Factor Complement C4 Miscellaneous Test Crossmatch 10/08/16 10/08/16 10/08/16 12:49 17:07 19:30 WBC RBC Hgb 7.1 L D Hct 22.4 L D MCV MCH MCHC RDW Plt Count Lymph % (Auto) [place] % (Auto) Lymph # [place] # Baso # Seg Neutrophils % Seg Neuts % (Manual) Lymphocytes % (Manual) Monocytes % (Manual) Eosinophils % (Manual) Basophils % (Manual) Nucleated RBC % Seg Neutrophils # Seg Neutrophils # Man Lymphocytes # (Manual) Monocytes # (Manual) Eosinophils # (Manual) Basophils # (Manual) PT INR Fibrinogen dRVVT Confirm Interp Factor V Activity POC ABG pH POC ABG pCO2 28.2 L POC ABG pO2 111 H ABG pO2 ABG HCO3 ABG Base Excess ABG Hemoglobin Oxyhemoglobin Sodium Potassium Chloride Carbon Dioxide BUN Creatinine Glucose POC Glucose 145 H Lactic Acid Calcium Phosphorus Magnesium Direct Bilirubin AST ALT Alkaline Phosphatase Lactate Dehydrogenase Troponin T C-Reactive Protein Total Protein Albumin Prealbumin Triglycerides Cholesterol LDL Cholesterol Direct HDL Cholesterol Urine pH Urine WBC (Auto) Urine Creatinine Urine Total Protein Fluid Total Protein Vancomycin Trough Rheumatoid Factor Complement C4 Miscellaneous Test Crossmatch 10/08/16 10/09/16 10/09/16 19:30 03:45 03:45 WBC 12.6 H RBC 2.36 L Hgb 6.7 L Hct 21.1 L MCV MCH MCHC RDW 19.5 H Plt Count 75 L Lymph % (Auto) [place] % (Auto) Lymph # [place] # Baso # Seg Neutrophils % Seg Neuts % (Manual) Lymphocytes % (Manual) Monocytes % (Manual) 10.0 H Eosinophils % (Manual) Basophils % (Manual) Nucleated RBC % 3.0 H Seg Neutrophils # Seg Neutrophils # Man Lymphocytes # (Manual) Monocytes # (Manual) 1.3 H Eosinophils # (Manual) Basophils # (Manual) PT 18.0 H INR 1.41 H Fibrinogen dRVVT Confirm Interp Factor V Activity POC ABG pH POC ABG pCO2 POC ABG pO2 ABG pO2 ABG HCO3 ABG Base Excess ABG Hemoglobin Oxyhemoglobin Sodium 135 L Potassium Chloride Carbon Dioxide 17 L BUN 81 H Creatinine 3.2 H Glucose 109 H POC Glucose Lactic Acid Calcium 7.4 L Phosphorus 4.60 H D Magnesium Direct Bilirubin AST ALT Alkaline Phosphatase Lactate Dehydrogenase Troponin T C-Reactive Protein Total Protein Albumin Prealbumin Triglycerides Cholesterol LDL Cholesterol Direct HDL Cholesterol Urine pH Urine WBC (Auto) Urine Creatinine Urine Total Protein Fluid Total Protein Vancomycin Trough Rheumatoid Factor Complement C4 Miscellaneous Test Crossmatch 10/09/16 10/09/16 10/09/16 03:45 05:14 07:20 WBC RBC Hgb Hct MCV MCH MCHC RDW Plt Count Lymph % (Auto) [place] % (Auto) Lymph # [place] # Baso # Seg Neutrophils % Seg Neuts % (Manual) Lymphocytes % (Manual) Monocytes % (Manual) Eosinophils % (Manual) Basophils % (Manual) Nucleated RBC % Seg Neutrophils # Seg Neutrophils # Man Lymphocytes # (Manual) Monocytes # (Manual) Eosinophils # (Manual) Basophils # (Manual) PT 19.0 H INR 1.51 H Fibrinogen dRVVT Confirm Interp Factor V Activity POC ABG pH POC ABG pCO2 POC ABG pO2 ABG pO2 ABG HCO3 ABG Base Excess ABG Hemoglobin Oxyhemoglobin Sodium Potassium Chloride Carbon Dioxide BUN Creatinine Glucose POC Glucose 151 H Lactic Acid Calcium Phosphorus Magnesium Direct Bilirubin AST ALT Alkaline Phosphatase Lactate Dehydrogenase Troponin T C-Reactive Protein Total Protein Albumin Prealbumin Triglycerides Cholesterol LDL Cholesterol Direct HDL Cholesterol Urine pH Urine WBC (Auto) Urine Creatinine Urine Total Protein Fluid Total Protein Vancomycin Trough Rheumatoid Factor Complement C4 Miscellaneous Test Crossmatch See Detail 10/09/16 10/09/16 10/09/16 11:46 16:20 16:43 WBC RBC Hgb 7.2 L Hct 22.2 L MCV MCH MCHC RDW Plt Count Lymph % (Auto) [place] % (Auto) Lymph # [place] # Baso # Seg Neutrophils % Seg Neuts % (Manual) Lymphocytes % (Manual) Monocytes % (Manual) Eosinophils % (Manual) Basophils % (Manual) Nucleated RBC % Seg Neutrophils # Seg Neutrophils # Man Lymphocytes # (Manual) Monocytes # (Manual) Eosinophils # (Manual) Basophils # (Manual) PT INR Fibrinogen dRVVT Confirm Interp Factor V Activity POC ABG pH POC ABG pCO2 POC ABG pO2 ABG pO2 ABG HCO3 ABG Base Excess ABG Hemoglobin Oxyhemoglobin Sodium Potassium Chloride Carbon Dioxide BUN Creatinine Glucose POC Glucose 133 H 141 H Lactic Acid Calcium Phosphorus Magnesium Direct Bilirubin AST ALT Alkaline Phosphatase Lactate Dehydrogenase Troponin T C-Reactive Protein Total Protein Albumin Prealbumin Triglycerides Cholesterol LDL Cholesterol Direct HDL Cholesterol Urine pH Urine WBC (Auto) Urine Creatinine Urine Total Protein Fluid Total Protein Vancomycin Trough Rheumatoid Factor Complement C4 Miscellaneous Test Crossmatch 10/10/16 10/10/16 10/10/16 05:00 05:00 11:19 WBC 18.5 H RBC 2.19 L Hgb 6.4 L Hct 19.6 L* MCV MCH MCHC RDW 19.3 H Plt Count 93 L Lymph % (Auto) [place] % (Auto) Lymph # [place] # Baso # Seg Neutrophils % Seg Neuts % (Manual) Lymphocytes % (Manual) 10.0 L Monocytes % (Manual) Eosinophils % (Manual) Basophils % (Manual) Nucleated RBC % 4.0 H Seg Neutrophils # Seg Neutrophils # Man 11.3 H Lymphocytes # (Manual) Monocytes # (Manual) Eosinophils # (Manual) Basophils # (Manual) PT INR Fibrinogen dRVVT Confirm Interp Factor V Activity POC ABG pH POC ABG pCO2 POC ABG pO2 ABG pO2 ABG HCO3 ABG Base Excess ABG Hemoglobin Oxyhemoglobin Sodium Potassium 5.7 H D Chloride Carbon Dioxide 16 L BUN 94 H Creatinine 3.1 H Glucose 131 H POC Glucose 153 H Lactic Acid Calcium 8.2 L Phosphorus 5.10 H Magnesium 2.40 H Direct Bilirubin 0.3 H AST ALT < 5 L Alkaline Phosphatase 319 H Lactate Dehydrogenase Troponin T C-Reactive Protein Total Protein 5.1 L Albumin 1.0 L Prealbumin Triglycerides Cholesterol LDL Cholesterol Direct HDL Cholesterol Urine pH Urine WBC (Auto) Urine Creatinine Urine Total Protein Fluid Total Protein Vancomycin Trough Rheumatoid Factor Complement C4 Miscellaneous Test Crossmatch 10/10/16 10/10/16 10/11/16 17:50 23:30 04:15 WBC RBC Hgb Hct MCV MCH MCHC RDW Plt Count Lymph % (Auto) [place] % (Auto) Lymph # [place] # Baso # Seg Neutrophils % Seg Neuts % (Manual) Lymphocytes % (Manual) Monocytes % (Manual) Eosinophils % (Manual) Basophils % (Manual) Nucleated RBC % Seg Neutrophils # Seg Neutrophils # Man Lymphocytes # (Manual) Monocytes # (Manual) Eosinophils # (Manual) Basophils # (Manual) PT INR Fibrinogen dRVVT Confirm Interp Factor V Activity POC ABG pH POC ABG pCO2 POC ABG pO2 ABG pO2 ABG HCO3 ABG Base Excess ABG Hemoglobin Oxyhemoglobin Sodium Potassium Chloride 96.4 L Carbon Dioxide 21 L BUN 57 H Creatinine 2.1 H Glucose 151 H POC Glucose 146 H 141 H Lactic Acid Calcium 8.3 L Phosphorus Magnesium Direct Bilirubin AST ALT Alkaline Phosphatase Lactate Dehydrogenase Troponin T C-Reactive Protein Total Protein Albumin Prealbumin Triglycerides Cholesterol LDL Cholesterol Direct HDL Cholesterol Urine pH Urine WBC (Auto) Urine Creatinine Urine Total Protein Fluid Total Protein Vancomycin Trough Rheumatoid Factor Complement C4 Miscellaneous Test Crossmatch 10/11/16 10/11/16 10/11/16 04:15 04:15 05:30 WBC 28.3 H RBC 3.12 L Hgb 9.3 L Hct 28.7 L D MCV MCH MCHC RDW 17.7 H Plt Count 128 L Lymph % (Auto) [place] % (Auto) Lymph # [place] # Baso # Seg Neutrophils % Seg Neuts % (Manual) Lymphocytes % (Manual) Monocytes % (Manual) Eosinophils % (Manual) Basophils % (Manual) Nucleated RBC % Seg Neutrophils # Seg Neutrophils # Man Lymphocytes # (Manual) Monocytes # (Manual) Eosinophils # (Manual) Basophils # (Manual) PT INR Fibrinogen dRVVT Confirm Interp Factor V Activity POC ABG pH POC ABG pCO2 POC ABG pO2 ABG pO2 ABG HCO3 ABG Base Excess ABG Hemoglobin Oxyhemoglobin Sodium Potassium Chloride Carbon Dioxide BUN Creatinine Glucose POC Glucose 167 H Lactic Acid Calcium Phosphorus Magnesium Direct Bilirubin AST ALT Alkaline Phosphatase Lactate Dehydrogenase Troponin T C-Reactive Protein 15.80 H Total Protein Albumin Prealbumin Triglycerides Cholesterol LDL Cholesterol Direct HDL Cholesterol Urine pH Urine WBC (Auto) Urine Creatinine Urine Total Protein Fluid Total Protein Vancomycin Trough Rheumatoid Factor Complement C4 Miscellaneous Test Crossmatch 10/11/16 10/11/16 10/11/16 11:40 15:49 23:57 WBC RBC Hgb Hct MCV MCH MCHC RDW Plt Count Lymph % (Auto) [place] % (Auto) Lymph # [place] # Baso # Seg Neutrophils % Seg Neuts % (Manual) Lymphocytes % (Manual) Monocytes % (Manual) Eosinophils % (Manual) Basophils % (Manual) Nucleated RBC % Seg Neutrophils # Seg Neutrophils # Man Lymphocytes # (Manual) Monocytes # (Manual) Eosinophils # (Manual) Basophils # (Manual) PT INR Fibrinogen dRVVT Confirm Interp Factor V Activity POC ABG pH POC ABG pCO2 POC ABG pO2 ABG pO2 ABG HCO3 ABG Base Excess ABG Hemoglobin Oxyhemoglobin Sodium Potassium Chloride Carbon Dioxide BUN Creatinine Glucose POC Glucose 139 H 168 H 161 H Lactic Acid Calcium Phosphorus Magnesium Direct Bilirubin AST ALT Alkaline Phosphatase Lactate Dehydrogenase Troponin T C-Reactive Protein Total Protein Albumin Prealbumin Triglycerides Cholesterol LDL Cholesterol Direct HDL Cholesterol Urine pH Urine WBC (Auto) Urine Creatinine Urine Total Protein Fluid Total Protein Vancomycin Trough Rheumatoid Factor Complement C4 Miscellaneous Test Crossmatch 10/12/16 10/12/16 10/12/16 04:40 04:40 05:44 WBC 22.5 H RBC 2.88 L Hgb 8.8 L Hct 26.8 L MCV MCH MCHC RDW 17.8 H Plt Count Lymph % (Auto) [place] % (Auto) Lymph # [place] # Baso # Seg Neutrophils % Seg Neuts % (Manual) Lymphocytes % (Manual) Monocytes % (Manual) Eosinophils % (Manual) Basophils % (Manual) Nucleated RBC % Seg Neutrophils # Seg Neutrophils # Man Lymphocytes # (Manual) Monocytes # (Manual) Eosinophils # (Manual) Basophils # (Manual) PT INR Fibrinogen dRVVT Confirm Interp Factor V Activity POC ABG pH POC ABG pCO2 POC ABG pO2 ABG pO2 ABG HCO3 ABG Base Excess ABG Hemoglobin Oxyhemoglobin Sodium 134 L Potassium Chloride 93.0 L Carbon Dioxide BUN 74 H Creatinine 2.5 H Glucose 137 H POC Glucose 158 H Lactic Acid Calcium 8.2 L Phosphorus Magnesium Direct Bilirubin AST ALT Alkaline Phosphatase Lactate Dehydrogenase Troponin T C-Reactive Protein Total Protein Albumin Prealbumin Triglycerides Cholesterol LDL Cholesterol Direct HDL Cholesterol Urine pH Urine WBC (Auto) Urine Creatinine Urine Total Protein Fluid Total Protein Vancomycin Trough Rheumatoid Factor Complement C4 Miscellaneous Test Crossmatch 10/12/16 10/12/16 10/12/16 12:27 18:18 23:46 WBC RBC Hgb Hct MCV MCH MCHC RDW Plt Count Lymph % (Auto) [place] % (Auto) Lymph # [place] # Baso # Seg Neutrophils % Seg Neuts % (Manual) Lymphocytes % (Manual) Monocytes % (Manual) Eosinophils % (Manual) Basophils % (Manual) Nucleated RBC % Seg Neutrophils # Seg Neutrophils # Man Lymphocytes # (Manual) Monocytes # (Manual) Eosinophils # (Manual) Basophils # (Manual) PT INR Fibrinogen dRVVT Confirm Interp Factor V Activity POC ABG pH POC ABG pCO2 POC ABG pO2 ABG pO2 ABG HCO3 ABG Base Excess ABG Hemoglobin Oxyhemoglobin Sodium Potassium Chloride Carbon Dioxide BUN Creatinine Glucose POC Glucose 153 H 140 H 150 H Lactic Acid Calcium Phosphorus Magnesium Direct Bilirubin AST ALT Alkaline Phosphatase Lactate Dehydrogenase Troponin T C-Reactive Protein Total Protein Albumin Prealbumin Triglycerides Cholesterol LDL Cholesterol Direct HDL Cholesterol Urine pH Urine WBC (Auto) Urine Creatinine Urine Total Protein Fluid Total Protein Vancomycin Trough Rheumatoid Factor Complement C4 Miscellaneous Test Crossmatch 10/13/16 10/13/16 10/13/16 06:22 09:20 12:29 WBC RBC Hgb Hct MCV MCH MCHC RDW Plt Count Lymph % (Auto) [place] % (Auto) Lymph # [place] # Baso # Seg Neutrophils % Seg Neuts % (Manual) Lymphocytes % (Manual) Monocytes % (Manual) Eosinophils % (Manual) Basophils % (Manual) Nucleated RBC % Seg Neutrophils # Seg Neutrophils # Man Lymphocytes # (Manual) Monocytes # (Manual) Eosinophils # (Manual) Basophils # (Manual) PT INR Fibrinogen dRVVT Confirm Interp Factor V Activity POC ABG pH POC ABG pCO2 POC ABG pO2 ABG pO2 ABG HCO3 ABG Base Excess ABG Hemoglobin Oxyhemoglobin Sodium Potassium Chloride Carbon Dioxide BUN Creatinine Glucose POC Glucose 165 H 193 H Lactic Acid Calcium Phosphorus Magnesium Direct Bilirubin AST ALT Alkaline Phosphatase Lactate Dehydrogenase Troponin T C-Reactive Protein Total Protein Albumin Prealbumin Triglycerides Cholesterol LDL Cholesterol Direct HDL Cholesterol Urine pH Urine WBC (Auto) Urine Creatinine Urine Total Protein Fluid Total Protein Vancomycin Trough Rheumatoid Factor Complement C4 Miscellaneous Test Flexitest 1 H Crossmatch 10/13/16 10/13/16 10/13/16 18:09 Unknown Unknown WBC 23.4 H RBC 2.83 L Hgb 8.7 L Hct 26.1 L MCV MCH MCHC RDW 18.1 H Plt Count Lymph % (Auto) [place] % (Auto) Lymph # [place] # Baso # Seg Neutrophils % Seg Neuts % (Manual) Lymphocytes % (Manual) Monocytes % (Manual) Eosinophils % (Manual) Basophils % (Manual) Nucleated RBC % Seg Neutrophils # Seg Neutrophils # Man Lymphocytes # (Manual) Monocytes # (Manual) Eosinophils # (Manual) Basophils # (Manual) PT INR Fibrinogen dRVVT Confirm Interp Factor V Activity POC ABG pH POC ABG pCO2 POC ABG pO2 ABG pO2 ABG HCO3 ABG Base Excess ABG Hemoglobin Oxyhemoglobin Sodium Potassium Chloride 95.8 L Carbon Dioxide BUN 82 H Creatinine 2.6 H Glucose 152 H POC Glucose 166 H Lactic Acid Calcium Phosphorus Magnesium Direct Bilirubin AST ALT Alkaline Phosphatase Lactate Dehydrogenase Troponin T C-Reactive Protein Total Protein Albumin Prealbumin Triglycerides Cholesterol LDL Cholesterol Direct HDL Cholesterol Urine pH Urine WBC (Auto) Urine Creatinine Urine Total Protein Fluid Total Protein Vancomycin Trough Rheumatoid Factor Complement C4 Miscellaneous Test Crossmatch 10/14/16 10/14/16 10/14/16 05:38 06:35 08:10 WBC 20.7 H RBC 2.81 L Hgb 8.4 L Hct 27.2 L MCV MCH MCHC RDW 19.4 H Plt Count Lymph % (Auto) [place] % (Auto) Lymph # [place] # Baso # Seg Neutrophils % Seg Neuts % (Manual) Lymphocytes % (Manual) Monocytes % (Manual) Eosinophils % (Manual) Basophils % (Manual) Nucleated RBC % Seg Neutrophils # Seg Neutrophils # Man Lymphocytes # (Manual) Monocytes # (Manual) Eosinophils # (Manual) Basophils # (Manual) PT INR Fibrinogen dRVVT Confirm Interp Factor V Activity POC ABG pH POC ABG pCO2 POC ABG pO2 ABG pO2 ABG HCO3 ABG Base Excess ABG Hemoglobin Oxyhemoglobin Sodium Potassium Chloride Carbon Dioxide BUN 58 H Creatinine 1.9 H Glucose 169 H POC Glucose 195 H Lactic Acid Calcium Phosphorus Magnesium Direct Bilirubin AST ALT Alkaline Phosphatase Lactate Dehydrogenase Troponin T C-Reactive Protein Total Protein Albumin Prealbumin Triglycerides Cholesterol LDL Cholesterol Direct HDL Cholesterol Urine pH Urine WBC (Auto) Urine Creatinine Urine Total Protein Fluid Total Protein Vancomycin Trough Rheumatoid Factor Complement C4 Miscellaneous Test Crossmatch 10/14/16 10/14/16 10/14/16 11:44 17:13 23:28 WBC RBC Hgb Hct MCV MCH MCHC RDW Plt Count Lymph % (Auto) [place] % (Auto) Lymph # [place] # Baso # Seg Neutrophils % Seg Neuts % (Manual) Lymphocytes % (Manual) Monocytes % (Manual) Eosinophils % (Manual) Basophils % (Manual) Nucleated RBC % Seg Neutrophils # Seg Neutrophils # Man Lymphocytes # (Manual) Monocytes # (Manual) Eosinophils # (Manual) Basophils # (Manual) PT INR Fibrinogen dRVVT Confirm Interp Factor V Activity POC ABG pH POC ABG pCO2 POC ABG pO2 ABG pO2 ABG HCO3 ABG Base Excess ABG Hemoglobin Oxyhemoglobin Sodium Potassium Chloride Carbon Dioxide BUN Creatinine Glucose POC Glucose 174 H 121 H 151 H Lactic Acid Calcium Phosphorus Magnesium Direct Bilirubin AST ALT Alkaline Phosphatase Lactate Dehydrogenase Troponin T C-Reactive Protein Total Protein Albumin Prealbumin Triglycerides Cholesterol LDL Cholesterol Direct HDL Cholesterol Urine pH Urine WBC (Auto) Urine Creatinine Urine Total Protein Fluid Total Protein Vancomycin Trough Rheumatoid Factor Complement C4 Miscellaneous Test Crossmatch 10/15/16 10/15/16 10/15/16 05:06 12:26 17:48 WBC RBC Hgb Hct MCV MCH MCHC RDW Plt Count Lymph % (Auto) [place] % (Auto) Lymph # [place] # Baso # Seg Neutrophils % Seg Neuts % (Manual) Lymphocytes % (Manual) Monocytes % (Manual) Eosinophils % (Manual) Basophils % (Manual) Nucleated RBC % Seg Neutrophils # Seg Neutrophils # Man Lymphocytes # (Manual) Monocytes # (Manual) Eosinophils # (Manual) Basophils # (Manual) PT INR Fibrinogen dRVVT Confirm Interp Factor V Activity POC ABG pH POC ABG pCO2 POC ABG pO2 ABG pO2 ABG HCO3 ABG Base Excess ABG Hemoglobin Oxyhemoglobin Sodium Potassium Chloride Carbon Dioxide BUN Creatinine Glucose POC Glucose 151 H 149 H 153 H Lactic Acid Calcium Phosphorus Magnesium Direct Bilirubin AST ALT Alkaline Phosphatase Lactate Dehydrogenase Troponin T C-Reactive Protein Total Protein Albumin Prealbumin Triglycerides Cholesterol LDL Cholesterol Direct HDL Cholesterol Urine pH Urine WBC (Auto) Urine Creatinine Urine Total Protein Fluid Total Protein Vancomycin Trough Rheumatoid Factor Complement C4 Miscellaneous Test Crossmatch 10/15/16 10/15/16 10/16/16 Unknown Unknown 00:02 WBC 23.4 H RBC 2.78 L Hgb 8.5 L Hct 25.7 L MCV MCH MCHC RDW 18.7 H Plt Count Lymph % (Auto) [place] % (Auto) Lymph # [place] # Baso # Seg Neutrophils % Seg Neuts % (Manual) Lymphocytes % (Manual) Monocytes % (Manual) Eosinophils % (Manual) Basophils % (Manual) Nucleated RBC % Seg Neutrophils # Seg Neutrophils # Man Lymphocytes # (Manual) Monocytes # (Manual) Eosinophils # (Manual) Basophils # (Manual) PT INR Fibrinogen dRVVT Confirm Interp Factor V Activity POC ABG pH POC ABG pCO2 POC ABG pO2 ABG pO2 ABG HCO3 ABG Base Excess ABG Hemoglobin Oxyhemoglobin Sodium Potassium Chloride Carbon Dioxide BUN 73 H Creatinine 2.3 H Glucose 120 H POC Glucose 137 H Lactic Acid Calcium Phosphorus Magnesium Direct Bilirubin AST ALT Alkaline Phosphatase Lactate Dehydrogenase Troponin T C-Reactive Protein Total Protein Albumin Prealbumin Triglycerides Cholesterol LDL Cholesterol Direct HDL Cholesterol Urine pH Urine WBC (Auto) Urine Creatinine Urine Total Protein Fluid Total Protein Vancomycin Trough Rheumatoid Factor Complement C4 Miscellaneous Test Crossmatch 10/16/16 10/16/16 10/16/16 05:44 06:25 06:25 WBC 22.5 H RBC 2.76 L Hgb 8.3 L Hct 25.2 L MCV MCH MCHC RDW 18.3 H Plt Count Lymph % (Auto) [place] % (Auto) Lymph # [place] # Baso # Seg Neutrophils % Seg Neuts % (Manual) Lymphocytes % (Manual) Monocytes % (Manual) Eosinophils % (Manual) Basophils % (Manual) Nucleated RBC % Seg Neutrophils # Seg Neutrophils # Man Lymphocytes # (Manual) Monocytes # (Manual) Eosinophils # (Manual) Basophils # (Manual) PT INR Fibrinogen dRVVT Confirm Interp Factor V Activity POC ABG pH POC ABG pCO2 POC ABG pO2 ABG pO2 ABG HCO3 ABG Base Excess ABG Hemoglobin Oxyhemoglobin Sodium Potassium Chloride Carbon Dioxide BUN 92 H Creatinine 3.0 H Glucose 138 H POC Glucose 110 H Lactic Acid Calcium Phosphorus Magnesium Direct Bilirubin AST ALT Alkaline Phosphatase Lactate Dehydrogenase Troponin T C-Reactive Protein Total Protein Albumin Prealbumin Triglycerides Cholesterol LDL Cholesterol Direct HDL Cholesterol Urine pH Urine WBC (Auto) Urine Creatinine Urine Total Protein Fluid Total Protein Vancomycin Trough Rheumatoid Factor Complement C4 Miscellaneous Test Crossmatch 10/16/16 10/16/16 10/16/16 11:27 11:48 17:36 WBC RBC Hgb Hct MCV MCH MCHC RDW Plt Count Lymph % (Auto) [place] % (Auto) Lymph # [place] # Baso # Seg Neutrophils % Seg Neuts % (Manual) Lymphocytes % (Manual) Monocytes % (Manual) Eosinophils % (Manual) Basophils % (Manual) Nucleated RBC % Seg Neutrophils # Seg Neutrophils # Man Lymphocytes # (Manual) Monocytes # (Manual) Eosinophils # (Manual) Basophils # (Manual) PT INR Fibrinogen dRVVT Confirm Interp Factor V Activity POC ABG pH 7.582 H POC ABG pCO2 27.4 L POC ABG pO2 110 H ABG pO2 ABG HCO3 ABG Base Excess ABG Hemoglobin Oxyhemoglobin Sodium Potassium Chloride Carbon Dioxide BUN Creatinine Glucose POC Glucose 121 H 133 H Lactic Acid Calcium Phosphorus Magnesium Direct Bilirubin AST ALT Alkaline Phosphatase Lactate Dehydrogenase Troponin T C-Reactive Protein Total Protein Albumin Prealbumin Triglycerides Cholesterol LDL Cholesterol Direct HDL Cholesterol Urine pH Urine WBC (Auto) Urine Creatinine Urine Total Protein Fluid Total Protein Vancomycin Trough Rheumatoid Factor Complement C4 Miscellaneous Test Crossmatch 10/16/16 10/17/16 10/17/16 20:48 04:24 04:24 WBC 21.4 H RBC 2.72 L Hgb 8.0 L Hct 25.2 L MCV MCH MCHC RDW 18.0 H Plt Count Lymph % (Auto) [place] % (Auto) Lymph # [place] # Baso # Seg Neutrophils % Seg Neuts % (Manual) Lymphocytes % (Manual) Monocytes % (Manual) Eosinophils % (Manual) Basophils % (Manual) Nucleated RBC % Seg Neutrophils # Seg Neutrophils # Man Lymphocytes # (Manual) Monocytes # (Manual) Eosinophils # (Manual) Basophils # (Manual) PT INR Fibrinogen dRVVT Confirm Interp Factor V Activity POC ABG pH 7.561 H POC ABG pCO2 24.4 L POC ABG pO2 77 L ABG pO2 ABG HCO3 ABG Base Excess ABG Hemoglobin Oxyhemoglobin Sodium 148 H Potassium Chloride Carbon Dioxide BUN 104 H Creatinine 3.0 H Glucose 149 H POC Glucose Lactic Acid Calcium Phosphorus Magnesium Direct Bilirubin AST ALT Alkaline Phosphatase 138 H Lactate Dehydrogenase Troponin T C-Reactive Protein Total Protein 6.2 L Albumin 1.5 L Prealbumin Triglycerides Cholesterol LDL Cholesterol Direct HDL Cholesterol Urine pH Urine WBC (Auto) Urine Creatinine Urine Total Protein Fluid Total Protein Vancomycin Trough Rheumatoid Factor Complement C4 Miscellaneous Test Crossmatch 10/17/16 10/17/16 10/17/16 06:02 12:17 17:14 WBC RBC Hgb Hct MCV MCH MCHC RDW Plt Count Lymph % (Auto) [place] % (Auto) Lymph # [place] # Baso # Seg Neutrophils % Seg Neuts % (Manual) Lymphocytes % (Manual) Monocytes % (Manual) Eosinophils % (Manual) Basophils % (Manual) Nucleated RBC % Seg Neutrophils # Seg Neutrophils # Man Lymphocytes # (Manual) Monocytes # (Manual) Eosinophils # (Manual) Basophils # (Manual) PT INR Fibrinogen dRVVT Confirm Interp Factor V Activity POC ABG pH POC ABG pCO2 POC ABG pO2 ABG pO2 ABG HCO3 ABG Base Excess ABG Hemoglobin Oxyhemoglobin Sodium Potassium Chloride Carbon Dioxide BUN Creatinine Glucose POC Glucose 170 H 167 H 126 H Lactic Acid Calcium Phosphorus Magnesium Direct Bilirubin AST ALT Alkaline Phosphatase Lactate Dehydrogenase Troponin T C-Reactive Protein Total Protein Albumin Prealbumin Triglycerides Cholesterol LDL Cholesterol Direct HDL Cholesterol Urine pH Urine WBC (Auto) Urine Creatinine Urine Total Protein Fluid Total Protein Vancomycin Trough Rheumatoid Factor Complement C4 Miscellaneous Test Crossmatch 10/17/16 10/18/16 10/18/16 23:17 04:00 04:00 WBC 20.7 H RBC 2.47 L Hgb 7.4 L Hct 22.9 L MCV MCH MCHC RDW 17.5 H Plt Count Lymph % (Auto) [place] % (Auto) Lymph # [place] # Baso # Seg Neutrophils % Seg Neuts % (Manual) Lymphocytes % (Manual) Monocytes % (Manual) Eosinophils % (Manual) Basophils % (Manual) Nucleated RBC % Seg Neutrophils # Seg Neutrophils # Man Lymphocytes # (Manual) Monocytes # (Manual) Eosinophils # (Manual) Basophils # (Manual) PT INR Fibrinogen dRVVT Confirm Interp Factor V Activity POC ABG pH POC ABG pCO2 POC ABG pO2 ABG pO2 ABG HCO3 ABG Base Excess ABG Hemoglobin Oxyhemoglobin Sodium 149 H Potassium Chloride 107.9 H Carbon Dioxide 20 L BUN 117 H Creatinine 3.2 H Glucose 119 H POC Glucose 121 H Lactic Acid Calcium Phosphorus Magnesium Direct Bilirubin AST ALT Alkaline Phosphatase Lactate Dehydrogenase Troponin T C-Reactive Protein Total Protein Albumin Prealbumin Triglycerides Cholesterol LDL Cholesterol Direct HDL Cholesterol Urine pH Urine WBC (Auto) Urine Creatinine Urine Total Protein Fluid Total Protein Vancomycin Trough Rheumatoid Factor Complement C4 Miscellaneous Test Crossmatch 10/18/16 10/18/16 10/18/16 05:23 10:46 17:30 WBC RBC Hgb Hct MCV MCH MCHC RDW Plt Count Lymph % (Auto) [place] % (Auto) Lymph # [place] # Baso # Seg Neutrophils % Seg Neuts % (Manual) Lymphocytes % (Manual) Monocytes % (Manual) Eosinophils % (Manual) Basophils % (Manual) Nucleated RBC % Seg Neutrophils # Seg Neutrophils # Man Lymphocytes # (Manual) Monocytes # (Manual) Eosinophils # (Manual) Basophils # (Manual) PT INR Fibrinogen dRVVT Confirm Interp Factor V Activity POC ABG pH POC ABG pCO2 POC ABG pO2 ABG pO2 ABG HCO3 ABG Base Excess ABG Hemoglobin Oxyhemoglobin Sodium Potassium Chloride Carbon Dioxide BUN Creatinine Glucose POC Glucose 119 H 155 H 124 H Lactic Acid Calcium Phosphorus Magnesium Direct Bilirubin AST ALT Alkaline Phosphatase Lactate Dehydrogenase Troponin T C-Reactive Protein Total Protein Albumin Prealbumin Triglycerides Cholesterol LDL Cholesterol Direct HDL Cholesterol Urine pH Urine WBC (Auto) Urine Creatinine Urine Total Protein Fluid Total Protein Vancomycin Trough Rheumatoid Factor Complement C4 Miscellaneous Test Crossmatch 10/19/16 10/19/16 10/19/16 04:00 04:00 05:25 WBC 17.4 H RBC 2.54 L Hgb 7.7 L Hct 23.6 L MCV MCH MCHC RDW 17.3 H Plt Count Lymph % (Auto) [place] % (Auto) Lymph # [place] # Baso # Seg Neutrophils % Seg Neuts % (Manual) Lymphocytes % (Manual) Monocytes % (Manual) Eosinophils % (Manual) Basophils % (Manual) Nucleated RBC % Seg Neutrophils # Seg Neutrophils # Man Lymphocytes # (Manual) Monocytes # (Manual) Eosinophils # (Manual) Basophils # (Manual) PT INR Fibrinogen dRVVT Confirm Interp Factor V Activity POC ABG pH POC ABG pCO2 POC ABG pO2 ABG pO2 ABG HCO3 ABG Base Excess ABG Hemoglobin Oxyhemoglobin Sodium Potassium Chloride Carbon Dioxide BUN 72 H Creatinine 2.1 H Glucose 116 H POC Glucose 119 H Lactic Acid Calcium Phosphorus Magnesium Direct Bilirubin AST ALT Alkaline Phosphatase Lactate Dehydrogenase Troponin T C-Reactive Protein Total Protein Albumin Prealbumin Triglycerides Cholesterol LDL Cholesterol Direct HDL Cholesterol Urine pH Urine WBC (Auto) Urine Creatinine Urine Total Protein Fluid Total Protein Vancomycin Trough Rheumatoid Factor Complement C4 Miscellaneous Test Crossmatch 10/19/16 10/19/16 10/20/16 11:46 23:59 06:00 WBC RBC Hgb Hct MCV MCH MCHC RDW Plt Count Lymph % (Auto) [place] % (Auto) Lymph # [place] # Baso # Seg Neutrophils % Seg Neuts % (Manual) Lymphocytes % (Manual) Monocytes % (Manual) Eosinophils % (Manual) Basophils % (Manual) Nucleated RBC % Seg Neutrophils # Seg Neutrophils # Man Lymphocytes # (Manual) Monocytes # (Manual) Eosinophils # (Manual) Basophils # (Manual) PT INR Fibrinogen dRVVT Confirm Interp Factor V Activity POC ABG pH POC ABG pCO2 POC ABG pO2 ABG pO2 ABG HCO3 ABG Base Excess ABG Hemoglobin Oxyhemoglobin Sodium Potassium Chloride Carbon Dioxide 17 L BUN 94 H Creatinine 2.7 H Glucose POC Glucose 116 H 117 H Lactic Acid Calcium Phosphorus Magnesium Direct Bilirubin AST ALT Alkaline Phosphatase Lactate Dehydrogenase Troponin T C-Reactive Protein Total Protein Albumin Prealbumin Triglycerides Cholesterol LDL Cholesterol Direct HDL Cholesterol Urine pH Urine WBC (Auto) Urine Creatinine Urine Total Protein Fluid Total Protein Vancomycin Trough Rheumatoid Factor Complement C4 Miscellaneous Test Crossmatch 10/20/16 10/20/16 10/20/16 06:00 11:49 16:00 WBC 19.7 H RBC 2.51 L Hgb 7.7 L Hct 23.5 L MCV MCH MCHC RDW 17.5 H Plt Count Lymph % (Auto) [place] % (Auto) Lymph # [place] # Baso # Seg Neutrophils % Seg Neuts % (Manual) Lymphocytes % (Manual) Monocytes % (Manual) Eosinophils % (Manual) Basophils % (Manual) Nucleated RBC % Seg Neutrophils # Seg Neutrophils # Man Lymphocytes # (Manual) Monocytes # (Manual) Eosinophils # (Manual) Basophils # (Manual) PT INR Fibrinogen dRVVT Confirm Interp Factor V Activity POC ABG pH POC ABG pCO2 POC ABG pO2 ABG pO2 ABG HCO3 ABG Base Excess ABG Hemoglobin Oxyhemoglobin Sodium Potassium Chloride Carbon Dioxide BUN Creatinine Glucose POC Glucose 117 H Lactic Acid Calcium Phosphorus Magnesium Direct Bilirubin AST ALT Alkaline Phosphatase Lactate Dehydrogenase Troponin T C-Reactive Protein Total Protein Albumin Prealbumin Triglycerides Cholesterol LDL Cholesterol Direct HDL Cholesterol Urine pH Urine WBC (Auto) Urine Creatinine Urine Total Protein Fluid Total Protein Vancomycin Trough Rheumatoid Factor Complement C4 Miscellaneous Test Flexitest 1 H Crossmatch 10/20/16 10/20/16 10/21/16 18:36 23:39 04:00 WBC RBC Hgb Hct MCV MCH MCHC RDW Plt Count Lymph % (Auto) [place] % (Auto) Lymph # [place] # Baso # Seg Neutrophils % Seg Neuts % (Manual) Lymphocytes % (Manual) Monocytes % (Manual) Eosinophils % (Manual) Basophils % (Manual) Nucleated RBC % Seg Neutrophils # Seg Neutrophils # Man Lymphocytes # (Manual) Monocytes # (Manual) Eosinophils # (Manual) Basophils # (Manual) PT INR Fibrinogen dRVVT Confirm Interp Factor V Activity POC ABG pH POC ABG pCO2 POC ABG pO2 ABG pO2 ABG HCO3 ABG Base Excess ABG Hemoglobin Oxyhemoglobin Sodium Potassium 5.4 H D Chloride Carbon Dioxide 15 L BUN 110 H Creatinine 3.0 H Glucose POC Glucose 127 H 114 H Lactic Acid Calcium Phosphorus Magnesium Direct Bilirubin AST ALT Alkaline Phosphatase Lactate Dehydrogenase Troponin T C-Reactive Protein Total Protein Albumin Prealbumin Triglycerides Cholesterol LDL Cholesterol Direct HDL Cholesterol Urine pH Urine WBC (Auto) Urine Creatinine Urine Total Protein Fluid Total Protein Vancomycin Trough Rheumatoid Factor Complement C4 Miscellaneous Test Crossmatch 10/21/16 10/21/16 10/22/16 05:54 23:46 05:18 WBC RBC Hgb Hct MCV MCH MCHC RDW Plt Count Lymph % (Auto) [place] % (Auto) Lymph # [place] # Baso # Seg Neutrophils % Seg Neuts % (Manual) Lymphocytes % (Manual) Monocytes % (Manual) Eosinophils % (Manual) Basophils % (Manual) Nucleated RBC % Seg Neutrophils # Seg Neutrophils # Man Lymphocytes # (Manual) Monocytes # (Manual) Eosinophils # (Manual) Basophils # (Manual) PT INR Fibrinogen dRVVT Confirm Interp Factor V Activity POC ABG pH POC ABG pCO2 POC ABG pO2 ABG pO2 ABG HCO3 ABG Base Excess ABG Hemoglobin Oxyhemoglobin Sodium Potassium Chloride Carbon Dioxide BUN Creatinine Glucose POC Glucose 119 H 108 H 109 H Lactic Acid Calcium Phosphorus Magnesium Direct Bilirubin AST ALT Alkaline Phosphatase Lactate Dehydrogenase Troponin T C-Reactive Protein Total Protein Albumin Prealbumin Triglycerides Cholesterol LDL Cholesterol Direct HDL Cholesterol Urine pH Urine WBC (Auto) Urine Creatinine Urine Total Protein Fluid Total Protein Vancomycin Trough Rheumatoid Factor Complement C4 Miscellaneous Test Crossmatch 10/22/16 10/22/16 10/22/16 06:40 06:40 06:40 WBC 14.0 H RBC 2.03 L Hgb 7.0 L Hct 20.5 L MCV 98 H MCH 34 H MCHC 35 H RDW 17.8 H Plt Count Lymph % (Auto) [place] % (Auto) 9.9 H Lymph # [place] # 1.4 H Baso # 0.2 H Seg Neutrophils % 72.0 H Seg Neuts % (Manual) Lymphocytes % (Manual) Monocytes % (Manual) Eosinophils % (Manual) Basophils % (Manual) Nucleated RBC % Seg Neutrophils # 10.0 H Seg Neutrophils # Man Lymphocytes # (Manual) Monocytes # (Manual) Eosinophils # (Manual) Basophils # (Manual) PT INR Fibrinogen dRVVT Confirm Interp Factor V Activity POC ABG pH POC ABG pCO2 POC ABG pO2 ABG pO2 ABG HCO3 ABG Base Excess ABG Hemoglobin Oxyhemoglobin Sodium 130 L D Potassium Chloride 92.4 L Carbon Dioxide 20 L BUN 50 H Creatinine 1.6 H Glucose 589 H* POC Glucose Lactic Acid Calcium 7.8 L D Phosphorus Magnesium 1.60 L Direct Bilirubin AST ALT Alkaline Phosphatase Lactate Dehydrogenase Troponin T C-Reactive Protein Total Protein Albumin Prealbumin Triglycerides Cholesterol LDL Cholesterol Direct HDL Cholesterol Urine pH Urine WBC (Auto) Urine Creatinine Urine Total Protein Fluid Total Protein Vancomycin Trough Rheumatoid Factor Complement C4 Miscellaneous Test Crossmatch 10/22/16 10/22/16 10/22/16 11:39 16:44 23:36 WBC RBC Hgb Hct MCV MCH MCHC RDW Plt Count Lymph % (Auto) [place] % (Auto) Lymph # [place] # Baso # Seg Neutrophils % Seg Neuts % (Manual) Lymphocytes % (Manual) Monocytes % (Manual) Eosinophils % (Manual) Basophils % (Manual) Nucleated RBC % Seg Neutrophils # Seg Neutrophils # Man Lymphocytes # (Manual) Monocytes # (Manual) Eosinophils # (Manual) Basophils # (Manual) PT INR Fibrinogen dRVVT Confirm Interp Factor V Activity POC ABG pH POC ABG pCO2 POC ABG pO2 ABG pO2 ABG HCO3 ABG Base Excess ABG Hemoglobin Oxyhemoglobin Sodium Potassium Chloride Carbon Dioxide BUN Creatinine Glucose POC Glucose 142 H 163 H 123 H Lactic Acid Calcium Phosphorus Magnesium Direct Bilirubin AST ALT Alkaline Phosphatase Lactate Dehydrogenase Troponin T C-Reactive Protein Total Protein Albumin Prealbumin Triglycerides Cholesterol LDL Cholesterol Direct HDL Cholesterol Urine pH Urine WBC (Auto) Urine Creatinine Urine Total Protein Fluid Total Protein Vancomycin Trough Rheumatoid Factor Complement C4 Miscellaneous Test Crossmatch 10/23/16 10/23/16 10/23/16 04:58 06:00 12:12 WBC RBC Hgb Hct MCV MCH MCHC RDW Plt Count Lymph % (Auto) [place] % (Auto) Lymph # [place] # Baso # Seg Neutrophils % Seg Neuts % (Manual) Lymphocytes % (Manual) Monocytes % (Manual) Eosinophils % (Manual) Basophils % (Manual) Nucleated RBC % Seg Neutrophils # Seg Neutrophils # Man Lymphocytes # (Manual) Monocytes # (Manual) Eosinophils # (Manual) Basophils # (Manual) PT INR Fibrinogen dRVVT Confirm Interp Factor V Activity POC ABG pH POC ABG pCO2 POC ABG pO2 ABG pO2 ABG HCO3 ABG Base Excess ABG Hemoglobin Oxyhemoglobin Sodium 133 L Potassium 3.5 L Chloride 96.1 L Carbon Dioxide 18 L BUN 76 H Creatinine 2.1 H Glucose POC Glucose 133 H 138 H Lactic Acid Calcium 8.3 L Phosphorus Magnesium Direct Bilirubin AST ALT Alkaline Phosphatase Lactate Dehydrogenase Troponin T C-Reactive Protein Total Protein Albumin Prealbumin Triglycerides Cholesterol LDL Cholesterol Direct HDL Cholesterol Urine pH Urine WBC (Auto) Urine Creatinine Urine Total Protein Fluid Total Protein Vancomycin Trough Rheumatoid Factor Complement C4 Miscellaneous Test Crossmatch 10/23/16 10/23/16 10/24/16 16:53 23:37 04:00 WBC RBC Hgb Hct MCV MCH MCHC RDW Plt Count Lymph % (Auto) [place] % (Auto) Lymph # [place] # Baso # Seg Neutrophils % Seg Neuts % (Manual) Lymphocytes % (Manual) Monocytes % (Manual) Eosinophils % (Manual) Basophils % (Manual) Nucleated RBC % Seg Neutrophils # Seg Neutrophils # Man Lymphocytes # (Manual) Monocytes # (Manual) Eosinophils # (Manual) Basophils # (Manual) PT INR Fibrinogen dRVVT Confirm Interp Factor V Activity POC ABG pH POC ABG pCO2 POC ABG pO2 ABG pO2 ABG HCO3 ABG Base Excess ABG Hemoglobin Oxyhemoglobin Sodium 131 L Potassium Chloride 94.5 L Carbon Dioxide 19 L BUN 97 H Creatinine 2.6 H Glucose 110 H POC Glucose 125 H 123 H Lactic Acid Calcium 8.3 L Phosphorus Magnesium Direct Bilirubin AST ALT Alkaline Phosphatase Lactate Dehydrogenase Troponin T C-Reactive Protein Total Protein Albumin Prealbumin Triglycerides Cholesterol LDL Cholesterol Direct HDL Cholesterol Urine pH Urine WBC (Auto) Urine Creatinine Urine Total Protein Fluid Total Protein Vancomycin Trough Rheumatoid Factor Complement C4 Miscellaneous Test Crossmatch 10/24/16 10/24/16 10/24/16 07:49 11:39 17:52 WBC RBC Hgb 6.0 L Hct 19.7 L* MCV MCH MCHC RDW Plt Count Lymph % (Auto) [place] % (Auto) Lymph # [place] # Baso # Seg Neutrophils % Seg Neuts % (Manual) Lymphocytes % (Manual) Monocytes % (Manual) Eosinophils % (Manual) Basophils % (Manual) Nucleated RBC % Seg Neutrophils # Seg Neutrophils # Man Lymphocytes # (Manual) Monocytes # (Manual) Eosinophils # (Manual) Basophils # (Manual) PT INR Fibrinogen dRVVT Confirm Interp Factor V Activity POC ABG pH POC ABG pCO2 POC ABG pO2 ABG pO2 ABG HCO3 ABG Base Excess ABG Hemoglobin Oxyhemoglobin Sodium Potassium Chloride Carbon Dioxide BUN Creatinine Glucose POC Glucose 106 H 158 H Lactic Acid Calcium Phosphorus Magnesium Direct Bilirubin AST ALT Alkaline Phosphatase Lactate Dehydrogenase Troponin T C-Reactive Protein Total Protein Albumin Prealbumin Triglycerides Cholesterol LDL Cholesterol Direct HDL Cholesterol Urine pH Urine WBC (Auto) Urine Creatinine Urine Total Protein Fluid Total Protein Vancomycin Trough Rheumatoid Factor Complement C4 Miscellaneous Test Crossmatch 10/24/16 10/24/16 10/24/16 20:00 22:27 Unknown WBC RBC Hgb 9.4 L D Hct 27.5 L D MCV MCH MCHC RDW Plt Count Lymph % (Auto) [place] % (Auto) Lymph # [place] # Baso # Seg Neutrophils % Seg Neuts % (Manual) Lymphocytes % (Manual) Monocytes % (Manual) Eosinophils % (Manual) Basophils % (Manual) Nucleated RBC % Seg Neutrophils # Seg Neutrophils # Man Lymphocytes # (Manual) Monocytes # (Manual) Eosinophils # (Manual) Basophils # (Manual) PT INR Fibrinogen dRVVT Confirm Interp Factor V Activity POC ABG pH POC ABG pCO2 POC ABG pO2 ABG pO2 ABG HCO3 ABG Base Excess ABG Hemoglobin Oxyhemoglobin Sodium Potassium Chloride Carbon Dioxide BUN Creatinine Glucose POC Glucose 125 H Lactic Acid Calcium Phosphorus Magnesium Direct Bilirubin AST ALT Alkaline Phosphatase Lactate Dehydrogenase Troponin T C-Reactive Protein Total Protein Albumin Prealbumin Triglycerides Cholesterol LDL Cholesterol Direct HDL Cholesterol Urine pH Urine WBC (Auto) Urine Creatinine Urine Total Protein Fluid Total Protein Vancomycin Trough Rheumatoid Factor Complement C4 Miscellaneous Test Crossmatch See Detail 10/25/16 10/25/16 10/25/16 04:00 04:00 04:00 WBC 14.2 H RBC 2.98 L Hgb 9.0 L Hct 26.2 L MCV MCH MCHC RDW 16.6 H Plt Count Lymph % (Auto) [place] % (Auto) 10.7 H Lymph # [place] # 1.5 H Baso # Seg Neutrophils % 73.6 H Seg Neuts % (Manual) Lymphocytes % (Manual) Monocytes % (Manual) Eosinophils % (Manual) Basophils % (Manual) Nucleated RBC % Seg Neutrophils # 10.5 H Seg Neutrophils # Man Lymphocytes # (Manual) Monocytes # (Manual) Eosinophils # (Manual) Basophils # (Manual) PT INR Fibrinogen dRVVT Confirm Interp Factor V Activity POC ABG pH POC ABG pCO2 POC ABG pO2 ABG pO2 ABG HCO3 ABG Base Excess ABG Hemoglobin Oxyhemoglobin Sodium 132 L Potassium Chloride 94.7 L Carbon Dioxide BUN 51 H Creatinine 1.6 H Glucose 130 H POC Glucose Lactic Acid Calcium 8.3 L Phosphorus 1.60 L D Magnesium Direct Bilirubin AST ALT Alkaline Phosphatase Lactate Dehydrogenase Troponin T C-Reactive Protein Total Protein Albumin Prealbumin Triglycerides Cholesterol LDL Cholesterol Direct HDL Cholesterol Urine pH Urine WBC (Auto) Urine Creatinine Urine Total Protein Fluid Total Protein Vancomycin Trough Rheumatoid Factor Complement C4 Miscellaneous Test Crossmatch 10/25/16 10/25/16 10/25/16 04:32 11:48 17:22 WBC RBC Hgb Hct MCV MCH MCHC RDW Plt Count Lymph % (Auto) [place] % (Auto) Lymph # [place] # Baso # Seg Neutrophils % Seg Neuts % (Manual) Lymphocytes % (Manual) Monocytes % (Manual) Eosinophils % (Manual) Basophils % (Manual) Nucleated RBC % Seg Neutrophils # Seg Neutrophils # Man Lymphocytes # (Manual) Monocytes # (Manual) Eosinophils # (Manual) Basophils # (Manual) PT INR Fibrinogen dRVVT Confirm Interp Factor V Activity POC ABG pH POC ABG pCO2 POC ABG pO2 ABG pO2 ABG HCO3 ABG Base Excess ABG Hemoglobin Oxyhemoglobin Sodium Potassium Chloride Carbon Dioxide BUN Creatinine Glucose POC Glucose 124 H 171 H 120 H Lactic Acid Calcium Phosphorus Magnesium Direct Bilirubin AST ALT Alkaline Phosphatase Lactate Dehydrogenase Troponin T C-Reactive Protein Total Protein Albumin Prealbumin Triglycerides Cholesterol LDL Cholesterol Direct HDL Cholesterol Urine pH Urine WBC (Auto) Urine Creatinine Urine Total Protein Fluid Total Protein Vancomycin Trough Rheumatoid Factor Complement C4 Miscellaneous Test Crossmatch 10/26/16 10/26/16 10/26/16 04:54 07:06 07:06 WBC 16.9 H RBC 3.06 L Hgb 9.1 L Hct 26.9 L MCV MCH MCHC RDW 16.9 H Plt Count Lymph % (Auto) [place] % (Auto) Lymph # [place] # Baso # Seg Neutrophils % Seg Neuts % (Manual) 71.0 H Lymphocytes % (Manual) 5.0 L Monocytes % (Manual) 12.0 H Eosinophils % (Manual) Basophils % (Manual) Nucleated RBC % Seg Neutrophils # Seg Neutrophils # Man 12.0 H Lymphocytes # (Manual) 0.8 L Monocytes # (Manual) 2.0 H Eosinophils # (Manual) Basophils # (Manual) PT INR Fibrinogen dRVVT Confirm Interp Factor V Activity POC ABG pH POC ABG pCO2 POC ABG pO2 ABG pO2 ABG HCO3 ABG Base Excess ABG Hemoglobin Oxyhemoglobin Sodium 135 L Potassium Chloride 97.1 L Carbon Dioxide BUN 73 H Creatinine 2.2 H Glucose 117 H POC Glucose 123 H Lactic Acid Calcium Phosphorus 1.70 L Magnesium Direct Bilirubin AST ALT Alkaline Phosphatase Lactate Dehydrogenase Troponin T C-Reactive Protein Total Protein Albumin Prealbumin Triglycerides Cholesterol LDL Cholesterol Direct HDL Cholesterol Urine pH Urine WBC (Auto) Urine Creatinine Urine Total Protein Fluid Total Protein Vancomycin Trough Rheumatoid Factor Complement C4 Miscellaneous Test Crossmatch 10/26/16 10/26/16 10/26/16 12:12 17:29 23:42 WBC RBC Hgb Hct MCV MCH MCHC RDW Plt Count Lymph % (Auto) [place] % (Auto) Lymph # [place] # Baso # Seg Neutrophils % Seg Neuts % (Manual) Lymphocytes % (Manual) Monocytes % (Manual) Eosinophils % (Manual) Basophils % (Manual) Nucleated RBC % Seg Neutrophils # Seg Neutrophils # Man Lymphocytes # (Manual) Monocytes # (Manual) Eosinophils # (Manual) Basophils # (Manual) PT INR Fibrinogen dRVVT Confirm Interp Factor V Activity POC ABG pH POC ABG pCO2 POC ABG pO2 ABG pO2 ABG HCO3 ABG Base Excess ABG Hemoglobin Oxyhemoglobin Sodium Potassium Chloride Carbon Dioxide BUN Creatinine Glucose POC Glucose 126 H 161 H 118 H Lactic Acid Calcium Phosphorus Magnesium Direct Bilirubin AST ALT Alkaline Phosphatase Lactate Dehydrogenase Troponin T C-Reactive Protein Total Protein Albumin Prealbumin Triglycerides Cholesterol LDL Cholesterol Direct HDL Cholesterol Urine pH Urine WBC (Auto) Urine Creatinine Urine Total Protein Fluid Total Protein Vancomycin Trough Rheumatoid Factor Complement C4 Miscellaneous Test Crossmatch 10/27/16 10/27/16 10/27/16 05:03 06:30 06:30 WBC 13.9 H RBC 3.09 L Hgb 9.2 L Hct 27.5 L MCV MCH MCHC RDW 17.0 H Plt Count Lymph % (Auto) [place] % (Auto) Lymph # [place] # Baso # Seg Neutrophils % Seg Neuts % (Manual) 78.0 H Lymphocytes % (Manual) Monocytes % (Manual) Eosinophils % (Manual) Basophils % (Manual) Nucleated RBC % 2.0 H Seg Neutrophils # Seg Neutrophils # Man 10.8 H Lymphocytes # (Manual) Monocytes # (Manual) 1.0 H Eosinophils # (Manual) Basophils # (Manual) PT INR Fibrinogen dRVVT Confirm Interp Factor V Activity POC ABG pH POC ABG pCO2 POC ABG pO2 ABG pO2 ABG HCO3 ABG Base Excess ABG Hemoglobin Oxyhemoglobin Sodium Potassium Chloride Carbon Dioxide BUN 40 H Creatinine 1.5 H Glucose 135 H POC Glucose 107 H Lactic Acid Calcium 8.3 L Phosphorus 1.30 L D Magnesium Direct Bilirubin AST ALT Alkaline Phosphatase Lactate Dehydrogenase Troponin T C-Reactive Protein Total Protein Albumin Prealbumin Triglycerides Cholesterol LDL Cholesterol Direct HDL Cholesterol Urine pH Urine WBC (Auto) Urine Creatinine Urine Total Protein Fluid Total Protein Vancomycin Trough Rheumatoid Factor Complement C4 Miscellaneous Test Crossmatch 10/27/16 10/27/16 10/27/16 13:27 18:07 23:40 WBC RBC Hgb Hct MCV MCH MCHC RDW Plt Count Lymph % (Auto) [place] % (Auto) Lymph # [place] # Baso # Seg Neutrophils % Seg Neuts % (Manual) Lymphocytes % (Manual) Monocytes % (Manual) Eosinophils % (Manual) Basophils % (Manual) Nucleated RBC % Seg Neutrophils # Seg Neutrophils # Man Lymphocytes # (Manual) Monocytes # (Manual) Eosinophils # (Manual) Basophils # (Manual) PT INR Fibrinogen dRVVT Confirm Interp Factor V Activity POC ABG pH POC ABG pCO2 POC ABG pO2 ABG pO2 ABG HCO3 ABG Base Excess ABG Hemoglobin Oxyhemoglobin Sodium Potassium Chloride Carbon Dioxide BUN Creatinine Glucose POC Glucose 117 H 121 H 118 H Lactic Acid Calcium Phosphorus Magnesium Direct Bilirubin AST ALT Alkaline Phosphatase Lactate Dehydrogenase Troponin T C-Reactive Protein Total Protein Albumin Prealbumin Triglycerides Cholesterol LDL Cholesterol Direct HDL Cholesterol Urine pH Urine WBC (Auto) Urine Creatinine Urine Total Protein Fluid Total Protein Vancomycin Trough Rheumatoid Factor Complement C4 Miscellaneous Test Crossmatch 10/28/16 10/28/16 10/28/16 05:48 06:45 06:45 WBC 14.7 H RBC 3.05 L Hgb 9.0 L Hct 26.9 L MCV MCH MCHC RDW 16.8 H Plt Count Lymph % (Auto) 8.2 L [place] % (Auto) 8.4 H Lymph # [place] # 1.2 H Baso # Seg Neutrophils % 81.9 H Seg Neuts % (Manual) Lymphocytes % (Manual) Monocytes % (Manual) Eosinophils % (Manual) Basophils % (Manual) Nucleated RBC % Seg Neutrophils # 12.1 H Seg Neutrophils # Man Lymphocytes # (Manual) Monocytes # (Manual) Eosinophils # (Manual) Basophils # (Manual) PT INR Fibrinogen dRVVT Confirm Interp Factor V Activity POC ABG pH POC ABG pCO2 POC ABG pO2 ABG pO2 ABG HCO3 ABG Base Excess ABG Hemoglobin Oxyhemoglobin Sodium Potassium Chloride Carbon Dioxide BUN 60 H Creatinine 1.9 H Glucose 120 H POC Glucose 114 H Lactic Acid Calcium Phosphorus Magnesium Direct Bilirubin AST ALT Alkaline Phosphatase Lactate Dehydrogenase Troponin T C-Reactive Protein Total Protein Albumin Prealbumin Triglycerides Cholesterol LDL Cholesterol Direct HDL Cholesterol Urine pH Urine WBC (Auto) Urine Creatinine Urine Total Protein Fluid Total Protein Vancomycin Trough Rheumatoid Factor Complement C4 Miscellaneous Test Crossmatch 10/28/16 10/28/16 10/29/16 17:08 23:50 05:10 WBC RBC Hgb Hct MCV MCH MCHC RDW Plt Count Lymph % (Auto) [place] % (Auto) Lymph # [place] # Baso # Seg Neutrophils % Seg Neuts % (Manual) Lymphocytes % (Manual) Monocytes % (Manual) Eosinophils % (Manual) Basophils % (Manual) Nucleated RBC % Seg Neutrophils # Seg Neutrophils # Man Lymphocytes # (Manual) Monocytes # (Manual) Eosinophils # (Manual) Basophils # (Manual) PT INR Fibrinogen dRVVT Confirm Interp Factor V Activity POC ABG pH POC ABG pCO2 POC ABG pO2 ABG pO2 ABG HCO3 ABG Base Excess ABG Hemoglobin Oxyhemoglobin Sodium Potassium Chloride Carbon Dioxide BUN Creatinine Glucose POC Glucose 109 H 110 H 124 H Lactic Acid Calcium Phosphorus Magnesium Direct Bilirubin AST ALT Alkaline Phosphatase Lactate Dehydrogenase Troponin T C-Reactive Protein Total Protein Albumin Prealbumin Triglycerides Cholesterol LDL Cholesterol Direct HDL Cholesterol Urine pH Urine WBC (Auto) Urine Creatinine Urine Total Protein Fluid Total Protein Vancomycin Trough Rheumatoid Factor Complement C4 Miscellaneous Test Crossmatch 10/29/16 10/29/16 10/29/16 07:45 07:45 12:19 WBC 14.7 H RBC 3.15 L Hgb 9.3 L Hct 28.9 L MCV MCH MCHC RDW 17.0 H Plt Count Lymph % (Auto) 11.9 L [place] % (Auto) 8.6 H Lymph # [place] # 1.3 H Baso # Seg Neutrophils % 78.1 H Seg Neuts % (Manual) Lymphocytes % (Manual) Monocytes % (Manual) Eosinophils % (Manual) Basophils % (Manual) Nucleated RBC % Seg Neutrophils # 11.4 H Seg Neutrophils # Man Lymphocytes # (Manual) Monocytes # (Manual) Eosinophils # (Manual) Basophils # (Manual) PT INR Fibrinogen dRVVT Confirm Interp Factor V Activity POC ABG pH POC ABG pCO2 POC ABG pO2 ABG pO2 ABG HCO3 ABG Base Excess ABG Hemoglobin Oxyhemoglobin Sodium Potassium 5.1 H Chloride Carbon Dioxide 19 L BUN 78 H Creatinine 2.2 H Glucose 116 H POC Glucose 118 H Lactic Acid Calcium Phosphorus Magnesium Direct Bilirubin AST ALT Alkaline Phosphatase Lactate Dehydrogenase Troponin T C-Reactive Protein Total Protein Albumin Prealbumin Triglycerides Cholesterol LDL Cholesterol Direct HDL Cholesterol Urine pH Urine WBC (Auto) Urine Creatinine Urine Total Protein Fluid Total Protein Vancomycin Trough Rheumatoid Factor Complement C4 Miscellaneous Test Crossmatch 10/29/16 10/30/16 10/30/16 17:49 01:52 03:28 WBC RBC Hgb Hct MCV MCH MCHC RDW Plt Count Lymph % (Auto) [place] % (Auto) Lymph # [place] # Baso # Seg Neutrophils % Seg Neuts % (Manual) Lymphocytes % (Manual) Monocytes % (Manual) Eosinophils % (Manual) Basophils % (Manual) Nucleated RBC % Seg Neutrophils # Seg Neutrophils # Man Lymphocytes # (Manual) Monocytes # (Manual) Eosinophils # (Manual) Basophils # (Manual) PT INR Fibrinogen dRVVT Confirm Interp Factor V Activity POC ABG pH POC ABG pCO2 POC ABG pO2 ABG pO2 ABG HCO3 ABG Base Excess ABG Hemoglobin Oxyhemoglobin Sodium Potassium 5.4 H Chloride 97.5 L Carbon Dioxide 19 L BUN 90 H Creatinine 2.5 H Glucose POC Glucose 120 H 129 H Lactic Acid Calcium Phosphorus 5.20 H Magnesium Direct Bilirubin AST ALT Alkaline Phosphatase Lactate Dehydrogenase Troponin T C-Reactive Protein Total Protein Albumin Prealbumin Triglycerides Cholesterol LDL Cholesterol Direct HDL Cholesterol Urine pH Urine WBC (Auto) Urine Creatinine Urine Total Protein Fluid Total Protein Vancomycin Trough Rheumatoid Factor Complement C4 Miscellaneous Test Crossmatch 10/30/16 10/30/16 10/30/16 03:28 08:19 08:19 WBC 11.6 H 15.9 H RBC 2.75 L 2.82 L Hgb 7.9 L 8.3 L Hct 24.2 L 25.2 L MCV MCH MCHC RDW 16.7 H 17.2 H Plt Count Lymph % (Auto) [place] % (Auto) 9.8 H Lymph # [place] # 1.1 H Baso # Seg Neutrophils % 74.2 H Seg Neuts % (Manual) Lymphocytes % (Manual) Monocytes % (Manual) Eosinophils % (Manual) Basophils % (Manual) Nucleated RBC % Seg Neutrophils # 8.6 H Seg Neutrophils # Man Lymphocytes # (Manual) Monocytes # (Manual) Eosinophils # (Manual) Basophils # (Manual) PT INR Fibrinogen dRVVT Confirm Interp Factor V Activity POC ABG pH POC ABG pCO2 POC ABG pO2 ABG pO2 ABG HCO3 ABG Base Excess ABG Hemoglobin Oxyhemoglobin Sodium Potassium 5.3 H Chloride 97.4 L Carbon Dioxide 19 L BUN 93 H Creatinine 2.6 H Glucose POC Glucose Lactic Acid Calcium Phosphorus Magnesium Direct Bilirubin AST ALT Alkaline Phosphatase Lactate Dehydrogenase Troponin T C-Reactive Protein Total Protein Albumin Prealbumin Triglycerides Cholesterol LDL Cholesterol Direct HDL Cholesterol Urine pH Urine WBC (Auto) Urine Creatinine Urine Total Protein Fluid Total Protein Vancomycin Trough Rheumatoid Factor Complement C4 Miscellaneous Test Crossmatch 10/30/16 10/30/16 10/31/16 17:11 23:56 00:40 WBC RBC Hgb Hct MCV MCH MCHC RDW Plt Count Lymph % (Auto) [place] % (Auto) Lymph # [place] # Baso # Seg Neutrophils % Seg Neuts % (Manual) Lymphocytes % (Manual) Monocytes % (Manual) Eosinophils % (Manual) Basophils % (Manual) Nucleated RBC % Seg Neutrophils # Seg Neutrophils # Man Lymphocytes # (Manual) Monocytes # (Manual) Eosinophils # (Manual) Basophils # (Manual) PT INR Fibrinogen dRVVT Confirm Interp Factor V Activity POC ABG pH POC ABG pCO2 POC ABG pO2 ABG pO2 ABG HCO3 ABG Base Excess ABG Hemoglobin Oxyhemoglobin Sodium Potassium Chloride Carbon Dioxide BUN Creatinine Glucose POC Glucose 106 H 117 H 120 H Lactic Acid Calcium Phosphorus Magnesium Direct Bilirubin AST ALT Alkaline Phosphatase Lactate Dehydrogenase Troponin T C-Reactive Protein Total Protein Albumin Prealbumin Triglycerides Cholesterol LDL Cholesterol Direct HDL Cholesterol Urine pH Urine WBC (Auto) Urine Creatinine Urine Total Protein Fluid Total Protein Vancomycin Trough Rheumatoid Factor Complement C4 Miscellaneous Test Crossmatch 10/31/16 10/31/16 10/31/16 05:43 07:15 07:15 WBC 12.1 H RBC 2.63 L Hgb 7.7 L Hct 23.3 L MCV MCH MCHC RDW 16.7 H Plt Count Lymph % (Auto) 11.7 L [place] % (Auto) 7.7 H Lymph # [place] # 0.9 H Baso # Seg Neutrophils % 78.0 H Seg Neuts % (Manual) Lymphocytes % (Manual) Monocytes % (Manual) Eosinophils % (Manual) Basophils % (Manual) Nucleated RBC % Seg Neutrophils # 9.4 H Seg Neutrophils # Man Lymphocytes # (Manual) Monocytes # (Manual) Eosinophils # (Manual) Basophils # (Manual) PT INR Fibrinogen dRVVT Confirm Interp Factor V Activity POC ABG pH POC ABG pCO2 POC ABG pO2 ABG pO2 ABG HCO3 ABG Base Excess ABG Hemoglobin Oxyhemoglobin Sodium Potassium Chloride 96.4 L Carbon Dioxide 21 L BUN 99 H Creatinine 2.6 H Glucose 144 H POC Glucose 125 H Lactic Acid Calcium Phosphorus 4.80 H Magnesium Direct Bilirubin AST ALT Alkaline Phosphatase Lactate Dehydrogenase Troponin T C-Reactive Protein Total Protein Albumin Prealbumin Triglycerides Cholesterol LDL Cholesterol Direct HDL Cholesterol Urine pH Urine WBC (Auto) Urine Creatinine Urine Total Protein Fluid Total Protein Vancomycin Trough Rheumatoid Factor Complement C4 Miscellaneous Test Crossmatch 10/31/16 10/31/16 11/01/16 11:46 18:34 00:20 WBC RBC Hgb Hct MCV MCH MCHC RDW Plt Count Lymph % (Auto) [place] % (Auto) Lymph # [place] # Baso # Seg Neutrophils % Seg Neuts % (Manual) Lymphocytes % (Manual) Monocytes % (Manual) Eosinophils % (Manual) Basophils % (Manual) Nucleated RBC % Seg Neutrophils # Seg Neutrophils # Man Lymphocytes # (Manual) Monocytes # (Manual) Eosinophils # (Manual) Basophils # (Manual) PT INR Fibrinogen dRVVT Confirm Interp Factor V Activity POC ABG pH POC ABG pCO2 POC ABG pO2 ABG pO2 ABG HCO3 ABG Base Excess ABG Hemoglobin Oxyhemoglobin Sodium Potassium Chloride Carbon Dioxide BUN Creatinine Glucose POC Glucose 159 H 140 H 132 H Lactic Acid Calcium Phosphorus Magnesium Direct Bilirubin AST ALT Alkaline Phosphatase Lactate Dehydrogenase Troponin T C-Reactive Protein Total Protein Albumin Prealbumin Triglycerides Cholesterol LDL Cholesterol Direct HDL Cholesterol Urine pH Urine WBC (Auto) Urine Creatinine Urine Total Protein Fluid Total Protein Vancomycin Trough Rheumatoid Factor Complement C4 Miscellaneous Test Crossmatch 11/01/16 11/01/16 11/01/16 04:55 04:55 06:11 WBC 11.2 H RBC 2.68 L Hgb 7.5 L Hct 23.7 L MCV MCH MCHC RDW 16.1 H Plt Count Lymph % (Auto) [place] % (Auto) 9.8 H Lymph # [place] # 1.1 H Baso # Seg Neutrophils % 70.8 H Seg Neuts % (Manual) Lymphocytes % (Manual) Monocytes % (Manual) Eosinophils % (Manual) Basophils % (Manual) Nucleated RBC % Seg Neutrophils # 7.9 H Seg Neutrophils # Man Lymphocytes # (Manual) Monocytes # (Manual) Eosinophils # (Manual) Basophils # (Manual) PT INR Fibrinogen dRVVT Confirm Interp Factor V Activity POC ABG pH POC ABG pCO2 POC ABG pO2 ABG pO2 ABG HCO3 ABG Base Excess ABG Hemoglobin Oxyhemoglobin Sodium Potassium 3.3 L D Chloride Carbon Dioxide BUN 61 H Creatinine 1.9 H Glucose 114 H POC Glucose 115 H Lactic Acid Calcium Phosphorus 1.80 L D Magnesium Direct Bilirubin AST ALT Alkaline Phosphatase Lactate Dehydrogenase Troponin T C-Reactive Protein Total Protein Albumin Prealbumin Triglycerides Cholesterol LDL Cholesterol Direct HDL Cholesterol Urine pH Urine WBC (Auto) Urine Creatinine Urine Total Protein Fluid Total Protein Vancomycin Trough Rheumatoid Factor Complement C4 Miscellaneous Test Crossmatch 11/01/16 11/01/16 11/01/16 12:29 18:23 23:58 WBC RBC Hgb Hct MCV MCH MCHC RDW Plt Count Lymph % (Auto) [place] % (Auto) Lymph # [place] # Baso # Seg Neutrophils % Seg Neuts % (Manual) Lymphocytes % (Manual) Monocytes % (Manual) Eosinophils % (Manual) Basophils % (Manual) Nucleated RBC % Seg Neutrophils # Seg Neutrophils # Man Lymphocytes # (Manual) Monocytes # (Manual) Eosinophils # (Manual) Basophils # (Manual) PT INR Fibrinogen dRVVT Confirm Interp Factor V Activity POC ABG pH POC ABG pCO2 POC ABG pO2 ABG pO2 ABG HCO3 ABG Base Excess ABG Hemoglobin Oxyhemoglobin Sodium Potassium Chloride Carbon Dioxide BUN Creatinine Glucose POC Glucose 142 H 143 H 128 H Lactic Acid Calcium Phosphorus Magnesium Direct Bilirubin AST ALT Alkaline Phosphatase Lactate Dehydrogenase Troponin T C-Reactive Protein Total Protein Albumin Prealbumin Triglycerides Cholesterol LDL Cholesterol Direct HDL Cholesterol Urine pH Urine WBC (Auto) Urine Creatinine Urine Total Protein Fluid Total Protein Vancomycin Trough Rheumatoid Factor Complement C4 Miscellaneous Test Crossmatch 11/02/16 11/02/16 11/02/16 04:16 05:29 11:58 WBC RBC Hgb Hct MCV MCH MCHC RDW Plt Count Lymph % (Auto) [place] % (Auto) Lymph # [place] # Baso # Seg Neutrophils % Seg Neuts % (Manual) Lymphocytes % (Manual) Monocytes % (Manual) Eosinophils % (Manual) Basophils % (Manual) Nucleated RBC % Seg Neutrophils # Seg Neutrophils # Man Lymphocytes # (Manual) Monocytes # (Manual) Eosinophils # (Manual) Basophils # (Manual) PT INR Fibrinogen dRVVT Confirm Interp Factor V Activity POC ABG pH POC ABG pCO2 POC ABG pO2 ABG pO2 ABG HCO3 ABG Base Excess ABG Hemoglobin Oxyhemoglobin Sodium Potassium 3.1 L Chloride Carbon Dioxide BUN 73 H Creatinine 2.3 H Glucose 112 H POC Glucose 135 H 149 H Lactic Acid Calcium Phosphorus Magnesium Direct Bilirubin AST ALT Alkaline Phosphatase Lactate Dehydrogenase Troponin T C-Reactive Protein Total Protein Albumin Prealbumin Triglycerides Cholesterol LDL Cholesterol Direct HDL Cholesterol Urine pH Urine WBC (Auto) Urine Creatinine Urine Total Protein Fluid Total Protein Vancomycin Trough Rheumatoid Factor Complement C4 Miscellaneous Test Crossmatch 11/02/16 11/02/16 11/03/16 17:42 22:54 06:00 WBC RBC Hgb Hct MCV MCH MCHC RDW Plt Count Lymph % (Auto) [place] % (Auto) Lymph # [place] # Baso # Seg Neutrophils % Seg Neuts % (Manual) Lymphocytes % (Manual) Monocytes % (Manual) Eosinophils % (Manual) Basophils % (Manual) Nucleated RBC % Seg Neutrophils # Seg Neutrophils # Man Lymphocytes # (Manual) Monocytes # (Manual) Eosinophils # (Manual) Basophils # (Manual) PT INR Fibrinogen dRVVT Confirm Interp Factor V Activity POC ABG pH POC ABG pCO2 POC ABG pO2 ABG pO2 ABG HCO3 ABG Base Excess ABG Hemoglobin Oxyhemoglobin Sodium Potassium Chloride 96.7 L Carbon Dioxide BUN 41 H Creatinine 1.5 H Glucose 145 H POC Glucose 182 H 115 H Lactic Acid Calcium Phosphorus 1.60 L D Magnesium 1.50 L Direct Bilirubin AST ALT Alkaline Phosphatase Lactate Dehydrogenase Troponin T C-Reactive Protein Total Protein Albumin Prealbumin Triglycerides Cholesterol LDL Cholesterol Direct HDL Cholesterol Urine pH Urine WBC (Auto) Urine Creatinine Urine Total Protein Fluid Total Protein Vancomycin Trough Rheumatoid Factor Complement C4 Miscellaneous Test Crossmatch 11/03/16 11/03/16 11/03/16 11:53 17:45 23:37 WBC RBC Hgb Hct MCV MCH MCHC RDW Plt Count Lymph % (Auto) [place] % (Auto) Lymph # [place] # Baso # Seg Neutrophils % Seg Neuts % (Manual) Lymphocytes % (Manual) Monocytes % (Manual) Eosinophils % (Manual) Basophils % (Manual) Nucleated RBC % Seg Neutrophils # Seg Neutrophils # Man Lymphocytes # (Manual) Monocytes # (Manual) Eosinophils # (Manual) Basophils # (Manual) PT INR Fibrinogen dRVVT Confirm Interp Factor V Activity POC ABG pH POC ABG pCO2 POC ABG pO2 ABG pO2 ABG HCO3 ABG Base Excess ABG Hemoglobin Oxyhemoglobin Sodium Potassium Chloride Carbon Dioxide BUN Creatinine Glucose POC Glucose 131 H 134 H 113 H Lactic Acid Calcium Phosphorus Magnesium Direct Bilirubin AST ALT Alkaline Phosphatase Lactate Dehydrogenase Troponin T C-Reactive Protein Total Protein Albumin Prealbumin Triglycerides Cholesterol LDL Cholesterol Direct HDL Cholesterol Urine pH Urine WBC (Auto) Urine Creatinine Urine Total Protein Fluid Total Protein Vancomycin Trough Rheumatoid Factor Complement C4 Miscellaneous Test Crossmatch 11/04/16 11/04/16 11/04/16 05:41 06:00 12:10 WBC RBC Hgb Hct MCV MCH MCHC RDW Plt Count Lymph % (Auto) [place] % (Auto) Lymph # [place] # Baso # Seg Neutrophils % Seg Neuts % (Manual) Lymphocytes % (Manual) Monocytes % (Manual) Eosinophils % (Manual) Basophils % (Manual) Nucleated RBC % Seg Neutrophils # Seg Neutrophils # Man Lymphocytes # (Manual) Monocytes # (Manual) Eosinophils # (Manual) Basophils # (Manual) PT INR Fibrinogen dRVVT Confirm Interp Factor V Activity POC ABG pH POC ABG pCO2 POC ABG pO2 ABG pO2 ABG HCO3 ABG Base Excess ABG Hemoglobin Oxyhemoglobin Sodium Potassium Chloride 96.7 L Carbon Dioxide BUN 52 H Creatinine 1.9 H Glucose 126 H POC Glucose 137 H 191 H Lactic Acid Calcium Phosphorus Magnesium Direct Bilirubin AST ALT Alkaline Phosphatase Lactate Dehydrogenase Troponin T C-Reactive Protein Total Protein Albumin Prealbumin Triglycerides Cholesterol LDL Cholesterol Direct HDL Cholesterol Urine pH Urine WBC (Auto) Urine Creatinine Urine Total Protein Fluid Total Protein Vancomycin Trough Rheumatoid Factor Complement C4 Miscellaneous Test Crossmatch 11/04/16 11/05/16 11/05/16 22:57 03:10 05:10 WBC RBC Hgb Hct MCV MCH MCHC RDW Plt Count Lymph % (Auto) [place] % (Auto) Lymph # [place] # Baso # Seg Neutrophils % Seg Neuts % (Manual) Lymphocytes % (Manual) Monocytes % (Manual) Eosinophils % (Manual) Basophils % (Manual) Nucleated RBC % Seg Neutrophils # Seg Neutrophils # Man Lymphocytes # (Manual) Monocytes # (Manual) Eosinophils # (Manual) Basophils # (Manual) PT INR Fibrinogen dRVVT Confirm Interp Factor V Activity POC ABG pH POC ABG pCO2 POC ABG pO2 ABG pO2 ABG HCO3 ABG Base Excess ABG Hemoglobin Oxyhemoglobin Sodium 136 L Potassium Chloride 97.2 L Carbon Dioxide BUN 32 H Creatinine 1.3 H Glucose 123 H POC Glucose 125 H 108 H Lactic Acid Calcium 7.8 L Phosphorus Magnesium Direct Bilirubin AST ALT Alkaline Phosphatase Lactate Dehydrogenase Troponin T C-Reactive Protein Total Protein Albumin Prealbumin Triglycerides Cholesterol LDL Cholesterol Direct HDL Cholesterol Urine pH Urine WBC (Auto) Urine Creatinine Urine Total Protein Fluid Total Protein Vancomycin Trough Rheumatoid Factor Complement C4 Miscellaneous Test Crossmatch 11/05/16 11/05/16 11/05/16 12:23 13:09 13:25 WBC RBC Hgb Hct MCV MCH MCHC RDW Plt Count Lymph % (Auto) [place] % (Auto) Lymph # [place] # Baso # Seg Neutrophils % Seg Neuts % (Manual) Lymphocytes % (Manual) Monocytes % (Manual) Eosinophils % (Manual) Basophils % (Manual) Nucleated RBC % Seg Neutrophils # Seg Neutrophils # Man Lymphocytes # (Manual) Monocytes # (Manual) Eosinophils # (Manual) Basophils # (Manual) PT INR Fibrinogen dRVVT Confirm Interp Factor V Activity POC ABG pH POC ABG pCO2 POC ABG pO2 ABG pO2 ABG HCO3 ABG Base Excess ABG Hemoglobin Oxyhemoglobin Sodium Potassium Chloride Carbon Dioxide BUN Creatinine Glucose POC Glucose 124 H Lactic Acid Calcium Phosphorus Magnesium Direct Bilirubin AST ALT Alkaline Phosphatase Lactate Dehydrogenase Troponin T C-Reactive Protein 11.40 H Total Protein Albumin Prealbumin Triglycerides Cholesterol LDL Cholesterol Direct HDL Cholesterol Urine pH 9.0 H Urine WBC (Auto) Urine Creatinine Urine Total Protein Fluid Total Protein Vancomycin Trough Rheumatoid Factor Complement C4 Miscellaneous Test Crossmatch 11/05/16 11/05/16 11/05/16 13:25 17:54 23:42 WBC RBC Hgb Hct MCV MCH MCHC RDW Plt Count Lymph % (Auto) [place] % (Auto) Lymph # [place] # Baso # Seg Neutrophils % Seg Neuts % (Manual) Lymphocytes % (Manual) Monocytes % (Manual) Eosinophils % (Manual) Basophils % (Manual) Nucleated RBC % Seg Neutrophils # Seg Neutrophils # Man Lymphocytes # (Manual) Monocytes # (Manual) Eosinophils # (Manual) Basophils # (Manual) PT INR Fibrinogen dRVVT Confirm Interp Factor V Activity POC ABG pH POC ABG pCO2 POC ABG pO2 ABG pO2 ABG HCO3 ABG Base Excess ABG Hemoglobin Oxyhemoglobin Sodium Potassium Chloride Carbon Dioxide BUN Creatinine Glucose POC Glucose 114 H 134 H Lactic Acid Calcium Phosphorus Magnesium Direct Bilirubin AST ALT Alkaline Phosphatase Lactate Dehydrogenase Troponin T C-Reactive Protein Total Protein Albumin Prealbumin Triglycerides Cholesterol LDL Cholesterol Direct HDL Cholesterol Urine pH Urine WBC (Auto) Urine Creatinine Urine Total Protein Fluid Total Protein Vancomycin Trough Rheumatoid Factor Complement C4 Miscellaneous Test Flexitest 1 H Crossmatch 11/06/16 11/06/16 11/06/16 04:56 06:25 06:25 WBC RBC 2.50 L Hgb 7.3 L Hct 22.5 L MCV MCH MCHC RDW 16.9 H Plt Count Lymph % (Auto) [place] % (Auto) 10.5 H Lymph # [place] # 1.1 H Baso # Seg Neutrophils % Seg Neuts % (Manual) Lymphocytes % (Manual) Monocytes % (Manual) Eosinophils % (Manual) Basophils % (Manual) Nucleated RBC % Seg Neutrophils # Seg Neutrophils # Man Lymphocytes # (Manual) Monocytes # (Manual) Eosinophils # (Manual) Basophils # (Manual) PT INR Fibrinogen dRVVT Confirm Interp Factor V Activity POC ABG pH POC ABG pCO2 POC ABG pO2 ABG pO2 ABG HCO3 ABG Base Excess ABG Hemoglobin Oxyhemoglobin Sodium Potassium 5.1 H Chloride 95.9 L Carbon Dioxide BUN 52 H Creatinine 1.8 H Glucose 117 H POC Glucose 120 H Lactic Acid Calcium Phosphorus Magnesium Direct Bilirubin AST 103 H ALT 77 H Alkaline Phosphatase 285 H Lactate Dehydrogenase Troponin T C-Reactive Protein Total Protein 6.2 L Albumin 1.8 L Prealbumin 0.180 L Triglycerides Cholesterol LDL Cholesterol Direct HDL Cholesterol Urine pH Urine WBC (Auto) Urine Creatinine Urine Total Protein Fluid Total Protein Vancomycin Trough Rheumatoid Factor Complement C4 Miscellaneous Test Crossmatch 11/06/16 11/06/16 11/06/16 11:56 17:14 23:52 WBC RBC Hgb Hct MCV MCH MCHC RDW Plt Count Lymph % (Auto) [place] % (Auto) Lymph # [place] # Baso # Seg Neutrophils % Seg Neuts % (Manual) Lymphocytes % (Manual) Monocytes % (Manual) Eosinophils % (Manual) Basophils % (Manual) Nucleated RBC % Seg Neutrophils # Seg Neutrophils # Man Lymphocytes # (Manual) Monocytes # (Manual) Eosinophils # (Manual) Basophils # (Manual) PT INR Fibrinogen dRVVT Confirm Interp Factor V Activity POC ABG pH POC ABG pCO2 POC ABG pO2 ABG pO2 ABG HCO3 ABG Base Excess ABG Hemoglobin Oxyhemoglobin Sodium Potassium Chloride Carbon Dioxide BUN Creatinine Glucose POC Glucose 141 H 125 H 130 H Lactic Acid Calcium Phosphorus Magnesium Direct Bilirubin AST ALT Alkaline Phosphatase Lactate Dehydrogenase Troponin T C-Reactive Protein Total Protein Albumin Prealbumin Triglycerides Cholesterol LDL Cholesterol Direct HDL Cholesterol Urine pH Urine WBC (Auto) Urine Creatinine Urine Total Protein Fluid Total Protein Vancomycin Trough Rheumatoid Factor Complement C4 Miscellaneous Test Crossmatch 11/07/16 11/07/16 11/07/16 06:30 06:30 09:37 WBC RBC 2.18 L Hgb 6.3 L Hct 19.7 L* MCV MCH MCHC RDW 16.8 H Plt Count Lymph % (Auto) [place] % (Auto) 10.0 H Lymph # [place] # 1.0 H Baso # Seg Neutrophils % Seg Neuts % (Manual) Lymphocytes % (Manual) Monocytes % (Manual) Eosinophils % (Manual) Basophils % (Manual) Nucleated RBC % Seg Neutrophils # Seg Neutrophils # Man Lymphocytes # (Manual) Monocytes # (Manual) Eosinophils # (Manual) Basophils # (Manual) PT INR Fibrinogen dRVVT Confirm Interp Factor V Activity POC ABG pH POC ABG pCO2 POC ABG pO2 ABG pO2 ABG HCO3 ABG Base Excess ABG Hemoglobin Oxyhemoglobin Sodium 135 L Potassium Chloride 95.6 L Carbon Dioxide BUN 70 H Creatinine 2.0 H Glucose 126 H POC Glucose Lactic Acid Calcium Phosphorus Magnesium Direct Bilirubin AST ALT Alkaline Phosphatase Lactate Dehydrogenase Troponin T C-Reactive Protein Total Protein Albumin Prealbumin Triglycerides Cholesterol LDL Cholesterol Direct HDL Cholesterol Urine pH Urine WBC (Auto) Urine Creatinine Urine Total Protein Fluid Total Protein Vancomycin Trough Rheumatoid Factor Complement C4 Miscellaneous Test Crossmatch See Detail 11/07/16 11/07/16 11/07/16 12:52 18:51 21:26 WBC RBC Hgb Hct MCV MCH MCHC RDW Plt Count Lymph % (Auto) [place] % (Auto) Lymph # [place] # Baso # Seg Neutrophils % Seg Neuts % (Manual) Lymphocytes % (Manual) Monocytes % (Manual) Eosinophils % (Manual) Basophils % (Manual) Nucleated RBC % Seg Neutrophils # Seg Neutrophils # Man Lymphocytes # (Manual) Monocytes # (Manual) Eosinophils # (Manual) Basophils # (Manual) PT INR Fibrinogen dRVVT Confirm Interp Factor V Activity POC ABG pH 7.523 H POC ABG pCO2 34.6 L POC ABG pO2 53 L ABG pO2 ABG HCO3 ABG Base Excess ABG Hemoglobin Oxyhemoglobin Sodium Potassium Chloride Carbon Dioxide BUN Creatinine Glucose POC Glucose 142 H 155 H Lactic Acid Calcium Phosphorus Magnesium Direct Bilirubin AST ALT Alkaline Phosphatase Lactate Dehydrogenase Troponin T C-Reactive Protein Total Protein Albumin Prealbumin Triglycerides Cholesterol LDL Cholesterol Direct HDL Cholesterol Urine pH Urine WBC (Auto) Urine Creatinine Urine Total Protein Fluid Total Protein Vancomycin Trough Rheumatoid Factor Complement C4 Miscellaneous Test Crossmatch 11/07/16 11/08/16 11/08/16 21:34 13:03 23:37 WBC RBC 2.63 L Hgb 7.7 L Hct 22.7 L MCV MCH MCHC RDW 17.0 H Plt Count Lymph % (Auto) [place] % (Auto) Lymph # [place] # Baso # Seg Neutrophils % Seg Neuts % (Manual) Lymphocytes % (Manual) Monocytes % (Manual) Eosinophils % (Manual) Basophils % (Manual) Nucleated RBC % Seg Neutrophils # Seg Neutrophils # Man Lymphocytes # (Manual) Monocytes # (Manual) Eosinophils # (Manual) Basophils # (Manual) PT INR Fibrinogen dRVVT Confirm Interp Factor V Activity POC ABG pH 7.478 H POC ABG pCO2 34.0 L POC ABG pO2 50 L ABG pO2 ABG HCO3 ABG Base Excess ABG Hemoglobin Oxyhemoglobin Sodium Potassium Chloride Carbon Dioxide BUN Creatinine Glucose POC Glucose 113 H Lactic Acid Calcium Phosphorus Magnesium Direct Bilirubin AST ALT Alkaline Phosphatase Lactate Dehydrogenase Troponin T C-Reactive Protein Total Protein Albumin Prealbumin Triglycerides Cholesterol LDL Cholesterol Direct HDL Cholesterol Urine pH Urine WBC (Auto) Urine Creatinine Urine Total Protein Fluid Total Protein Vancomycin Trough Rheumatoid Factor Complement C4 Miscellaneous Test Crossmatch 11/09/16 11/09/16 11/09/16 04:35 10:15 18:21 WBC RBC 2.68 L Hgb 7.8 L Hct 23.3 L MCV MCH MCHC RDW 17.0 H Plt Count Lymph % (Auto) [place] % (Auto) 12.1 H Lymph # [place] # 1.1 H Baso # Seg Neutrophils % Seg Neuts % (Manual) Lymphocytes % (Manual) Monocytes % (Manual) Eosinophils % (Manual) Basophils % (Manual) Nucleated RBC % Seg Neutrophils # Seg Neutrophils # Man Lymphocytes # (Manual) Monocytes # (Manual) Eosinophils # (Manual) Basophils # (Manual) PT INR Fibrinogen dRVVT Confirm Interp Factor V Activity POC ABG pH POC ABG pCO2 POC ABG pO2 ABG pO2 ABG HCO3 ABG Base Excess ABG Hemoglobin Oxyhemoglobin Sodium Potassium Chloride Carbon Dioxide BUN 51 H Creatinine 1.8 H Glucose POC Glucose 60 L Lactic Acid Calcium 8.3 L Phosphorus Magnesium Direct Bilirubin AST ALT Alkaline Phosphatase Lactate Dehydrogenase Troponin T C-Reactive Protein Total Protein Albumin Prealbumin Triglycerides Cholesterol LDL Cholesterol Direct HDL Cholesterol Urine pH Urine WBC (Auto) Urine Creatinine Urine Total Protein Fluid Total Protein Vancomycin Trough Rheumatoid Factor Complement C4 Miscellaneous Test Crossmatch 11/09/16 11/10/16 11/10/16 18:55 07:00 11:51 WBC RBC Hgb Hct MCV MCH MCHC RDW Plt Count Lymph % (Auto) [place] % (Auto) Lymph # [place] # Baso # Seg Neutrophils % Seg Neuts % (Manual) Lymphocytes % (Manual) Monocytes % (Manual) Eosinophils % (Manual) Basophils % (Manual) Nucleated RBC % Seg Neutrophils # Seg Neutrophils # Man Lymphocytes # (Manual) Monocytes # (Manual) Eosinophils # (Manual) Basophils # (Manual) PT INR Fibrinogen dRVVT Confirm Interp Factor V Activity POC ABG pH POC ABG pCO2 POC ABG pO2 ABG pO2 ABG HCO3 ABG Base Excess ABG Hemoglobin Oxyhemoglobin Sodium Potassium 3.0 L D Chloride 97.4 L Carbon Dioxide BUN 28 H Creatinine 1.3 H Glucose POC Glucose 68 L 120 H Lactic Acid Calcium 7.8 L Phosphorus Magnesium Direct Bilirubin AST ALT Alkaline Phosphatase Lactate Dehydrogenase Troponin T C-Reactive Protein Total Protein Albumin Prealbumin Triglycerides Cholesterol LDL Cholesterol Direct HDL Cholesterol Urine pH Urine WBC (Auto) Urine Creatinine Urine Total Protein Fluid Total Protein Vancomycin Trough Rheumatoid Factor Complement C4 Miscellaneous Test Crossmatch 11/10/16 11/11/16 11/11/16 14:20 06:59 06:59 WBC RBC 2.81 L Hgb 8.1 L Hct 24.4 L MCV MCH MCHC RDW 16.4 H Plt Count Lymph % (Auto) [place] % (Auto) 10.8 H Lymph # [place] # 1.0 H Baso # Seg Neutrophils % Seg Neuts % (Manual) Lymphocytes % (Manual) Monocytes % (Manual) Eosinophils % (Manual) Basophils % (Manual) Nucleated RBC % Seg Neutrophils # Seg Neutrophils # Man Lymphocytes # (Manual) Monocytes # (Manual) Eosinophils # (Manual) Basophils # (Manual) PT INR Fibrinogen dRVVT Confirm Interp Factor V Activity POC ABG pH POC ABG pCO2 POC ABG pO2 ABG pO2 ABG HCO3 ABG Base Excess ABG Hemoglobin Oxyhemoglobin Sodium Potassium Chloride Carbon Dioxide BUN Creatinine Glucose POC Glucose Lactic Acid Calcium Phosphorus Magnesium Direct Bilirubin AST ALT Alkaline Phosphatase Lactate Dehydrogenase 196 H Troponin T C-Reactive Protein Total Protein 6.1 L Albumin Prealbumin Triglycerides Cholesterol LDL Cholesterol Direct HDL Cholesterol Urine pH Urine WBC (Auto) Urine Creatinine Urine Total Protein Fluid Total Protein < 3.0 L Vancomycin Trough Rheumatoid Factor Complement C4 Miscellaneous Test Crossmatch 11/11/16 11/11/16 11/12/16 06:59 09:50 04:00 WBC RBC Hgb Hct MCV MCH MCHC RDW Plt Count Lymph % (Auto) [place] % (Auto) Lymph # [place] # Baso # Seg Neutrophils % Seg Neuts % (Manual) Lymphocytes % (Manual) Monocytes % (Manual) Eosinophils % (Manual) Basophils % (Manual) Nucleated RBC % Seg Neutrophils # Seg Neutrophils # Man Lymphocytes # (Manual) Monocytes # (Manual) Eosinophils # (Manual) Basophils # (Manual) PT INR 1.18 H Fibrinogen dRVVT Confirm Interp Factor V Activity POC ABG pH POC ABG pCO2 POC ABG pO2 ABG pO2 ABG HCO3 ABG Base Excess ABG Hemoglobin Oxyhemoglobin Sodium 136 L 133 L Potassium Chloride 96.1 L 94.8 L Carbon Dioxide 21 L BUN 37 H 42 H Creatinine 1.8 H 2.0 H Glucose POC Glucose Lactic Acid Calcium Phosphorus Magnesium Direct Bilirubin AST ALT Alkaline Phosphatase Lactate Dehydrogenase Troponin T C-Reactive Protein Total Protein Albumin Prealbumin Triglycerides Cholesterol LDL Cholesterol Direct HDL Cholesterol Urine pH Urine WBC (Auto) Urine Creatinine Urine Total Protein Fluid Total Protein Vancomycin Trough Rheumatoid Factor Complement C4 Miscellaneous Test Crossmatch 11/12/16 11/12/16 11/13/16 04:00 23:55 05:53 WBC RBC Hgb 8.9 L Hct 27.2 L MCV MCH MCHC RDW Plt Count Lymph % (Auto) [place] % (Auto) Lymph # [place] # Baso # Seg Neutrophils % Seg Neuts % (Manual) Lymphocytes % (Manual) Monocytes % (Manual) Eosinophils % (Manual) Basophils % (Manual) Nucleated RBC % Seg Neutrophils # Seg Neutrophils # Man Lymphocytes # (Manual) Monocytes # (Manual) Eosinophils # (Manual) Basophils # (Manual) PT INR Fibrinogen dRVVT Confirm Interp Factor V Activity POC ABG pH POC ABG pCO2 POC ABG pO2 ABG pO2 ABG HCO3 ABG Base Excess ABG Hemoglobin Oxyhemoglobin Sodium Potassium Chloride Carbon Dioxide BUN Creatinine Glucose POC Glucose 132 H 120 H Lactic Acid Calcium Phosphorus Magnesium Direct Bilirubin AST ALT Alkaline Phosphatase Lactate Dehydrogenase Troponin T C-Reactive Protein Total Protein Albumin Prealbumin Triglycerides Cholesterol LDL Cholesterol Direct HDL Cholesterol Urine pH Urine WBC (Auto) Urine Creatinine Urine Total Protein Fluid Total Protein Vancomycin Trough Rheumatoid Factor Complement C4 Miscellaneous Test Crossmatch 11/13/16 11/13/16 11/13/16 11:43 17:09 23:41 WBC RBC Hgb Hct MCV MCH MCHC RDW Plt Count Lymph % (Auto) [place] % (Auto) Lymph # [place] # Baso # Seg Neutrophils % Seg Neuts % (Manual) Lymphocytes % (Manual) Monocytes % (Manual) Eosinophils % (Manual) Basophils % (Manual) Nucleated RBC % Seg Neutrophils # Seg Neutrophils # Man Lymphocytes # (Manual) Monocytes # (Manual) Eosinophils # (Manual) Basophils # (Manual) PT INR Fibrinogen dRVVT Confirm Interp Factor V Activity POC ABG pH POC ABG pCO2 POC ABG pO2 ABG pO2 ABG HCO3 ABG Base Excess ABG Hemoglobin Oxyhemoglobin Sodium Potassium Chloride Carbon Dioxide BUN Creatinine Glucose POC Glucose 114 H 113 H 108 H Lactic Acid Calcium Phosphorus Magnesium Direct Bilirubin AST ALT Alkaline Phosphatase Lactate Dehydrogenase Troponin T C-Reactive Protein Total Protein Albumin Prealbumin Triglycerides Cholesterol LDL Cholesterol Direct HDL Cholesterol Urine pH Urine WBC (Auto) Urine Creatinine Urine Total Protein Fluid Total Protein Vancomycin Trough Rheumatoid Factor Complement C4 Miscellaneous Test Crossmatch 11/13/16 11/15/16 11/15/16 Unknown 00:37 03:30 WBC 11.2 H RBC 2.72 L Hgb 7.6 L Hct 23.4 L MCV MCH MCHC RDW 16.5 H Plt Count Lymph % (Auto) [place] % (Auto) Lymph # [place] # Baso # Seg Neutrophils % Seg Neuts % (Manual) Lymphocytes % (Manual) Monocytes % (Manual) Eosinophils % (Manual) Basophils % (Manual) Nucleated RBC % Seg Neutrophils # Seg Neutrophils # Man Lymphocytes # (Manual) Monocytes # (Manual) Eosinophils # (Manual) Basophils # (Manual) PT INR Fibrinogen dRVVT Confirm Interp Factor V Activity POC ABG pH POC ABG pCO2 POC ABG pO2 ABG pO2 ABG HCO3 ABG Base Excess ABG Hemoglobin Oxyhemoglobin Sodium 135 L Potassium Chloride 95.2 L Carbon Dioxide BUN 52 H Creatinine 2.2 H Glucose POC Glucose 108 H Lactic Acid Calcium Phosphorus Magnesium Direct Bilirubin AST ALT Alkaline Phosphatase Lactate Dehydrogenase Troponin T C-Reactive Protein Total Protein Albumin Prealbumin Triglycerides Cholesterol LDL Cholesterol Direct HDL Cholesterol Urine pH Urine WBC (Auto) Urine Creatinine Urine Total Protein Fluid Total Protein Vancomycin Trough Rheumatoid Factor Complement C4 Miscellaneous Test Crossmatch 11/15/16 11/15/16 11/15/16 03:30 05:04 11:50 WBC RBC Hgb Hct MCV MCH MCHC RDW Plt Count Lymph % (Auto) [place] % (Auto) Lymph # [place] # Baso # Seg Neutrophils % Seg Neuts % (Manual) Lymphocytes % (Manual) Monocytes % (Manual) Eosinophils % (Manual) Basophils % (Manual) Nucleated RBC % Seg Neutrophils # Seg Neutrophils # Man Lymphocytes # (Manual) Monocytes # (Manual) Eosinophils # (Manual) Basophils # (Manual) PT INR Fibrinogen dRVVT Confirm Interp Factor V Activity POC ABG pH POC ABG pCO2 POC ABG pO2 ABG pO2 ABG HCO3 ABG Base Excess ABG Hemoglobin Oxyhemoglobin Sodium Potassium 3.4 L Chloride Carbon Dioxide BUN 25 H Creatinine 1.5 H Glucose 103 H POC Glucose 121 H 144 H Lactic Acid Calcium Phosphorus Magnesium Direct Bilirubin AST ALT Alkaline Phosphatase Lactate Dehydrogenase Troponin T C-Reactive Protein Total Protein Albumin Prealbumin Triglycerides Cholesterol LDL Cholesterol Direct HDL Cholesterol Urine pH Urine WBC (Auto) Urine Creatinine Urine Total Protein Fluid Total Protein Vancomycin Trough Rheumatoid Factor Complement C4 Miscellaneous Test Crossmatch 11/15/16 11/15/16 11/16/16 21:28 23:20 11:44 WBC RBC Hgb Hct MCV MCH MCHC RDW Plt Count Lymph % (Auto) [place] % (Auto) Lymph # [place] # Baso # Seg Neutrophils % Seg Neuts % (Manual) Lymphocytes % (Manual) Monocytes % (Manual) Eosinophils % (Manual) Basophils % (Manual) Nucleated RBC % Seg Neutrophils # Seg Neutrophils # Man Lymphocytes # (Manual) Monocytes # (Manual) Eosinophils # (Manual) Basophils # (Manual) PT INR Fibrinogen dRVVT Confirm Interp Factor V Activity POC ABG pH 7.462 H POC ABG pCO2 POC ABG pO2 71 L ABG pO2 ABG HCO3 ABG Base Excess ABG Hemoglobin Oxyhemoglobin Sodium Potassium Chloride Carbon Dioxide BUN Creatinine Glucose POC Glucose 116 H 133 H Lactic Acid Calcium Phosphorus Magnesium Direct Bilirubin AST ALT Alkaline Phosphatase Lactate Dehydrogenase Troponin T C-Reactive Protein Total Protein Albumin Prealbumin Triglycerides Cholesterol LDL Cholesterol Direct HDL Cholesterol Urine pH Urine WBC (Auto) Urine Creatinine Urine Total Protein Fluid Total Protein Vancomycin Trough Rheumatoid Factor Complement C4 Miscellaneous Test Crossmatch 11/16/16 11/16/16 11/16/16 12:20 17:05 23:35 WBC 11.7 H RBC 2.73 L Hgb 7.6 L Hct 23.7 L MCV MCH MCHC RDW 16.6 H Plt Count Lymph % (Auto) [place] % (Auto) Lymph # [place] # Baso # Seg Neutrophils % Seg Neuts % (Manual) Lymphocytes % (Manual) Monocytes % (Manual) Eosinophils % (Manual) Basophils % (Manual) Nucleated RBC % Seg Neutrophils # Seg Neutrophils # Man Lymphocytes # (Manual) Monocytes # (Manual) Eosinophils # (Manual) Basophils # (Manual) PT INR Fibrinogen dRVVT Confirm Interp Factor V Activity POC ABG pH POC ABG pCO2 POC ABG pO2 ABG pO2 ABG HCO3 ABG Base Excess ABG Hemoglobin Oxyhemoglobin Sodium Potassium Chloride Carbon Dioxide BUN Creatinine Glucose POC Glucose 154 H 125 H Lactic Acid Calcium Phosphorus Magnesium Direct Bilirubin AST ALT Alkaline Phosphatase Lactate Dehydrogenase Troponin T C-Reactive Protein Total Protein Albumin Prealbumin Triglycerides Cholesterol LDL Cholesterol Direct HDL Cholesterol Urine pH Urine WBC (Auto) Urine Creatinine Urine Total Protein Fluid Total Protein Vancomycin Trough Rheumatoid Factor Complement C4 Miscellaneous Test Crossmatch 11/17/16 11/17/16 11/17/16 03:20 03:20 03:20 WBC RBC 2.55 L Hgb 7.3 L Hct 21.9 L MCV MCH MCHC RDW 16.6 H Plt Count Lymph % (Auto) [place] % (Auto) 11.5 H Lymph # [place] # 1.1 H Baso # Seg Neutrophils % Seg Neuts % (Manual) Lymphocytes % (Manual) Monocytes % (Manual) Eosinophils % (Manual) Basophils % (Manual) Nucleated RBC % Seg Neutrophils # Seg Neutrophils # Man Lymphocytes # (Manual) Monocytes # (Manual) Eosinophils # (Manual) Basophils # (Manual) PT 16.8 H INR 1.37 H Fibrinogen dRVVT Confirm Interp Factor V Activity POC ABG pH POC ABG pCO2 POC ABG pO2 ABG pO2 ABG HCO3 ABG Base Excess ABG Hemoglobin Oxyhemoglobin Sodium Potassium 3.5 L Chloride Carbon Dioxide BUN 21 H Creatinine Glucose POC Glucose Lactic Acid Calcium 7.9 L Phosphorus Magnesium Direct Bilirubin AST ALT Alkaline Phosphatase Lactate Dehydrogenase Troponin T C-Reactive Protein Total Protein Albumin Prealbumin Triglycerides Cholesterol LDL Cholesterol Direct HDL Cholesterol Urine pH Urine WBC (Auto) Urine Creatinine Urine Total Protein Fluid Total Protein Vancomycin Trough Rheumatoid Factor Complement C4 Miscellaneous Test Crossmatch 11/17/16 11/17/16 11/17/16 06:34 11:21 21:22 WBC RBC Hgb Hct MCV MCH MCHC RDW Plt Count Lymph % (Auto) [place] % (Auto) Lymph # [place] # Baso # Seg Neutrophils % Seg Neuts % (Manual) Lymphocytes % (Manual) Monocytes % (Manual) Eosinophils % (Manual) Basophils % (Manual) Nucleated RBC % Seg Neutrophils # Seg Neutrophils # Man Lymphocytes # (Manual) Monocytes # (Manual) Eosinophils # (Manual) Basophils # (Manual) PT INR Fibrinogen dRVVT Confirm Interp Factor V Activity POC ABG pH 7.467 H POC ABG pCO2 POC ABG pO2 73 L ABG pO2 ABG HCO3 ABG Base Excess ABG Hemoglobin Oxyhemoglobin Sodium Potassium Chloride Carbon Dioxide BUN Creatinine Glucose POC Glucose 121 H 119 H Lactic Acid Calcium Phosphorus Magnesium Direct Bilirubin AST ALT Alkaline Phosphatase Lactate Dehydrogenase Troponin T C-Reactive Protein Total Protein Albumin Prealbumin Triglycerides Cholesterol LDL Cholesterol Direct HDL Cholesterol Urine pH Urine WBC (Auto) Urine Creatinine Urine Total Protein Fluid Total Protein Vancomycin Trough Rheumatoid Factor Complement C4 Miscellaneous Test Crossmatch 11/18/16 11/18/16 11/19/16 12:16 17:19 00:00 WBC RBC Hgb Hct MCV MCH MCHC RDW Plt Count Lymph % (Auto) [place] % (Auto) Lymph # [place] # Baso # Seg Neutrophils % Seg Neuts % (Manual) Lymphocytes % (Manual) Monocytes % (Manual) Eosinophils % (Manual) Basophils % (Manual) Nucleated RBC % Seg Neutrophils # Seg Neutrophils # Man Lymphocytes # (Manual) Monocytes # (Manual) Eosinophils # (Manual) Basophils # (Manual) PT INR Fibrinogen dRVVT Confirm Interp Factor V Activity POC ABG pH POC ABG pCO2 POC ABG pO2 ABG pO2 ABG HCO3 ABG Base Excess ABG Hemoglobin Oxyhemoglobin Sodium Potassium Chloride Carbon Dioxide BUN Creatinine Glucose POC Glucose 124 H 162 H 139 H Lactic Acid Calcium Phosphorus Magnesium Direct Bilirubin AST ALT Alkaline Phosphatase Lactate Dehydrogenase Troponin T C-Reactive Protein Total Protein Albumin Prealbumin Triglycerides Cholesterol LDL Cholesterol Direct HDL Cholesterol Urine pH Urine WBC (Auto) Urine Creatinine Urine Total Protein Fluid Total Protein Vancomycin Trough Rheumatoid Factor Complement C4 Miscellaneous Test Crossmatch 11/19/16 11/19/16 11/20/16 05:00 12:43 00:40 WBC RBC Hgb Hct MCV MCH MCHC RDW Plt Count Lymph % (Auto) [place] % (Auto) Lymph # [place] # Baso # Seg Neutrophils % Seg Neuts % (Manual) Lymphocytes % (Manual) Monocytes % (Manual) Eosinophils % (Manual) Basophils % (Manual) Nucleated RBC % Seg Neutrophils # Seg Neutrophils # Man Lymphocytes # (Manual) Monocytes # (Manual) Eosinophils # (Manual) Basophils # (Manual) PT INR Fibrinogen dRVVT Confirm Interp Factor V Activity POC ABG pH POC ABG pCO2 POC ABG pO2 ABG pO2 ABG HCO3 ABG Base Excess ABG Hemoglobin Oxyhemoglobin Sodium Potassium Chloride Carbon Dioxide BUN Creatinine Glucose POC Glucose 110 H 125 H 136 H Lactic Acid Calcium Phosphorus Magnesium Direct Bilirubin AST ALT Alkaline Phosphatase Lactate Dehydrogenase Troponin T C-Reactive Protein Total Protein Albumin Prealbumin Triglycerides Cholesterol LDL Cholesterol Direct HDL Cholesterol Urine pH Urine WBC (Auto) Urine Creatinine Urine Total Protein Fluid Total Protein Vancomycin Trough Rheumatoid Factor Complement C4 Miscellaneous Test Crossmatch 1011/20/16 11/20/16 05:00 05:00 05:51 WBC 13.1 H RBC 2.74 L Hgb 7.7 L Hct 23.6 L MCV MCH MCHC RDW 16.9 H Plt Count Lymph % (Auto) [place] % (Auto) 10.8 H Lymph # [place] # 1.4 H Baso # Seg Neutrophils % Seg Neuts % (Manual) Lymphocytes % (Manual) Monocytes % (Manual) Eosinophils % (Manual) Basophils % (Manual) Nucleated RBC % Seg Neutrophils # 7.9 H Seg Neutrophils # Man Lymphocytes # (Manual) Monocytes # (Manual) Eosinophils # (Manual) Basophils # (Manual) PT INR Fibrinogen dRVVT Confirm Interp Factor V Activity POC ABG pH POC ABG pCO2 POC ABG pO2 ABG pO2 ABG HCO3 ABG Base Excess ABG Hemoglobin Oxyhemoglobin Sodium Potassium Chloride Carbon Dioxide BUN 31 H Creatinine 1.8 H Glucose 129 H POC Glucose 133 H Lactic Acid Calcium Phosphorus Magnesium Direct Bilirubin AST ALT Alkaline Phosphatase Lactate Dehydrogenase Troponin T C-Reactive Protein Total Protein Albumin Prealbumin Triglycerides Cholesterol LDL Cholesterol Direct HDL Cholesterol Urine pH Urine WBC (Auto) Urine Creatinine Urine Total Protein Fluid Total Protein Vancomycin Trough Rheumatoid Factor Complement C4 Miscellaneous Test Crossmatch 11/20/16 11/20/16 11/21/16 12:40 18:10 01:20 WBC RBC Hgb Hct MCV MCH MCHC RDW Plt Count Lymph % (Auto) [place] % (Auto) Lymph # [place] # Baso # Seg Neutrophils % Seg Neuts % (Manual) Lymphocytes % (Manual) Monocytes % (Manual) Eosinophils % (Manual) Basophils % (Manual) Nucleated RBC % Seg Neutrophils # Seg Neutrophils # Man Lymphocytes # (Manual) Monocytes # (Manual) Eosinophils # (Manual) Basophils # (Manual) PT INR Fibrinogen dRVVT Confirm Interp Factor V Activity POC ABG pH POC ABG pCO2 POC ABG pO2 ABG pO2 ABG HCO3 ABG Base Excess ABG Hemoglobin Oxyhemoglobin Sodium Potassium Chloride Carbon Dioxide BUN Creatinine Glucose POC Glucose 134 H 138 H 136 H Lactic Acid Calcium Phosphorus Magnesium Direct Bilirubin AST ALT Alkaline Phosphatase Lactate Dehydrogenase Troponin T C-Reactive Protein Total Protein Albumin Prealbumin Triglycerides Cholesterol LDL Cholesterol Direct HDL Cholesterol Urine pH Urine WBC (Auto) Urine Creatinine Urine Total Protein Fluid Total Protein Vancomycin Trough Rheumatoid Factor Complement C4 Miscellaneous Test Crossmatch 11/21/16 11/21/16 11/21/16 07:04 07:45 07:45 WBC 22.0 H RBC 2.91 L Hgb 8.2 L Hct 25.4 L MCV MCH MCHC RDW 17.1 H Plt Count Lymph % (Auto) [place] % (Auto) Lymph # [place] # Baso # Seg Neutrophils % Seg Neuts % (Manual) Lymphocytes % (Manual) 8.0 L Monocytes % (Manual) Eosinophils % (Manual) Basophils % (Manual) Nucleated RBC % Seg Neutrophils # Seg Neutrophils # Man 14.7 H Lymphocytes # (Manual) Monocytes # (Manual) 1.1 H Eosinophils # (Manual) Basophils # (Manual) PT INR Fibrinogen dRVVT Confirm Interp Factor V Activity POC ABG pH POC ABG pCO2 POC ABG pO2 ABG pO2 ABG HCO3 ABG Base Excess ABG Hemoglobin Oxyhemoglobin Sodium Potassium Chloride Carbon Dioxide BUN 42 H Creatinine 2.0 H Glucose POC Glucose 108 H Lactic Acid Calcium Phosphorus Magnesium Direct Bilirubin AST ALT Alkaline Phosphatase Lactate Dehydrogenase Troponin T C-Reactive Protein Total Protein Albumin Prealbumin Triglycerides Cholesterol LDL Cholesterol Direct HDL Cholesterol Urine pH Urine WBC (Auto) Urine Creatinine Urine Total Protein Fluid Total Protein Vancomycin Trough Rheumatoid Factor Complement C4 Miscellaneous Test Crossmatch 11/21/16 11/21/16 11/21/16 08:38 10:09 11:20 WBC RBC Hgb Hct MCV MCH MCHC RDW Plt Count Lymph % (Auto) [place] % (Auto) Lymph # [place] # Baso # Seg Neutrophils % Seg Neuts % (Manual) Lymphocytes % (Manual) Monocytes % (Manual) Eosinophils % (Manual) Basophils % (Manual) Nucleated RBC % Seg Neutrophils # Seg Neutrophils # Man Lymphocytes # (Manual) Monocytes # (Manual) Eosinophils # (Manual) Basophils # (Manual) PT INR Fibrinogen dRVVT Confirm Interp Factor V Activity POC ABG pH 7.346 L POC ABG pCO2 34.4 L POC ABG pO2 314 H ABG pO2 ABG HCO3 ABG Base Excess ABG Hemoglobin Oxyhemoglobin Sodium Potassium Chloride Carbon Dioxide BUN Creatinine Glucose POC Glucose 195 H 153 H Lactic Acid Calcium Phosphorus Magnesium Direct Bilirubin AST ALT Alkaline Phosphatase Lactate Dehydrogenase Troponin T C-Reactive Protein Total Protein Albumin Prealbumin Triglycerides Cholesterol LDL Cholesterol Direct HDL Cholesterol Urine pH Urine WBC (Auto) Urine Creatinine Urine Total Protein Fluid Total Protein Vancomycin Trough Rheumatoid Factor Complement C4 Miscellaneous Test Crossmatch 11/21/16 11/22/16 11/22/16 23:37 04:48 05:00 WBC 29.7 H RBC 2.73 L Hgb 7.5 L Hct 24.2 L MCV MCH 27 L MCHC RDW 17.4 H Plt Count Lymph % (Auto) [place] % (Auto) Lymph # [place] # Baso # Seg Neutrophils % Seg Neuts % (Manual) Lymphocytes % (Manual) 7.0 L Monocytes % (Manual) Eosinophils % (Manual) Basophils % (Manual) Nucleated RBC % Seg Neutrophils # Seg Neutrophils # Man 15.4 H Lymphocytes # (Manual) Monocytes # (Manual) Eosinophils # (Manual) Basophils # (Manual) PT INR Fibrinogen dRVVT Confirm Interp Factor V Activity POC ABG pH POC ABG pCO2 24.6 L POC ABG pO2 189 H ABG pO2 ABG HCO3 ABG Base Excess ABG Hemoglobin Oxyhemoglobin Sodium Potassium Chloride Carbon Dioxide BUN Creatinine Glucose POC Glucose 65 L Lactic Acid Calcium Phosphorus Magnesium Direct Bilirubin AST ALT Alkaline Phosphatase Lactate Dehydrogenase Troponin T C-Reactive Protein Total Protein Albumin Prealbumin Triglycerides Cholesterol LDL Cholesterol Direct HDL Cholesterol Urine pH Urine WBC (Auto) Urine Creatinine Urine Total Protein Fluid Total Protein Vancomycin Trough Rheumatoid Factor Complement C4 Miscellaneous Test Crossmatch 11/22/16 11/23/16 11/23/16 05:00 03:44 04:06 WBC RBC 2.52 L Hgb 7.2 L Hct 21.5 L MCV MCH MCHC RDW 17.1 H Plt Count Lymph % (Auto) [place] % (Auto) 12.4 H Lymph # [place] # 1.4 H Baso # Seg Neutrophils % Seg Neuts % (Manual) Lymphocytes % (Manual) Monocytes % (Manual) Eosinophils % (Manual) Basophils % (Manual) Nucleated RBC % Seg Neutrophils # Seg Neutrophils # Man Lymphocytes # (Manual) Monocytes # (Manual) Eosinophils # (Manual) Basophils # (Manual) PT INR Fibrinogen dRVVT Confirm Interp Factor V Activity POC ABG pH 7.493 H POC ABG pCO2 29.5 L POC ABG pO2 49 L ABG pO2 ABG HCO3 ABG Base Excess ABG Hemoglobin Oxyhemoglobin Sodium 134 L Potassium Chloride 95.9 L Carbon Dioxide 14 L D BUN 51 H Creatinine 2.6 H Glucose POC Glucose Lactic Acid Calcium Phosphorus Magnesium Direct Bilirubin AST ALT Alkaline Phosphatase Lactate Dehydrogenase Troponin T C-Reactive Protein Total Protein Albumin Prealbumin Triglycerides Cholesterol LDL Cholesterol Direct HDL Cholesterol Urine pH Urine WBC (Auto) Urine Creatinine Urine Total Protein Fluid Total Protein Vancomycin Trough Rheumatoid Factor Complement C4 Miscellaneous Test Crossmatch 11/23/16 11/23/16 11/24/16 04:06 11:29 06:39 WBC RBC Hgb Hct MCV MCH MCHC RDW Plt Count Lymph % (Auto) [place] % (Auto) Lymph # [place] # Baso # Seg Neutrophils % Seg Neuts % (Manual) Lymphocytes % (Manual) Monocytes % (Manual) Eosinophils % (Manual) Basophils % (Manual) Nucleated RBC % Seg Neutrophils # Seg Neutrophils # Man Lymphocytes # (Manual) Monocytes # (Manual) Eosinophils # (Manual) Basophils # (Manual) PT INR Fibrinogen dRVVT Confirm Interp Factor V Activity POC ABG pH POC ABG pCO2 POC ABG pO2 ABG pO2 ABG HCO3 ABG Base Excess ABG Hemoglobin Oxyhemoglobin Sodium 136 L Potassium Chloride 95.2 L Carbon Dioxide BUN 60 H Creatinine 2.9 H Glucose POC Glucose 69 L 305 H Lactic Acid Calcium Phosphorus Magnesium 1.60 L Direct Bilirubin AST ALT Alkaline Phosphatase Lactate Dehydrogenase Troponin T C-Reactive Protein Total Protein Albumin Prealbumin Triglycerides Cholesterol LDL Cholesterol Direct HDL Cholesterol Urine pH Urine WBC (Auto) Urine Creatinine Urine Total Protein Fluid Total Protein Vancomycin Trough Rheumatoid Factor Complement C4 Miscellaneous Test Crossmatch 11/24/16 11/24/16 11/24/16 06:43 08:08 08:08 WBC 11.2 H RBC 2.47 L Hgb 6.8 L Hct 20.6 L MCV MCH MCHC RDW 17.0 H Plt Count Lymph % (Auto) [place] % (Auto) 10.3 H Lymph # [place] # 1.2 H Baso # Seg Neutrophils % Seg Neuts % (Manual) Lymphocytes % (Manual) Monocytes % (Manual) Eosinophils % (Manual) Basophils % (Manual) Nucleated RBC % Seg Neutrophils # Seg Neutrophils # Man Lymphocytes # (Manual) Monocytes # (Manual) Eosinophils # (Manual) Basophils # (Manual) PT INR Fibrinogen dRVVT Confirm Interp Factor V Activity POC ABG pH POC ABG pCO2 POC ABG pO2 ABG pO2 ABG HCO3 ABG Base Excess ABG Hemoglobin Oxyhemoglobin Sodium 135 L Potassium Chloride 96.3 L Carbon Dioxide BUN 61 H Creatinine 3.1 H Glucose POC Glucose 62 L Lactic Acid Calcium 8.2 L Phosphorus Magnesium Direct Bilirubin AST ALT Alkaline Phosphatase Lactate Dehydrogenase Troponin T C-Reactive Protein Total Protein Albumin Prealbumin Triglycerides Cholesterol LDL Cholesterol Direct HDL Cholesterol Urine pH Urine WBC (Auto) Urine Creatinine Urine Total Protein Fluid Total Protein Vancomycin Trough Rheumatoid Factor Complement C4 Miscellaneous Test Crossmatch 11/24/16 11/24/16 11/24/16 08:34 11:20 12:41 WBC RBC Hgb Hct MCV MCH MCHC RDW Plt Count Lymph % (Auto) [place] % (Auto) Lymph # [place] # Baso # Seg Neutrophils % Seg Neuts % (Manual) Lymphocytes % (Manual) Monocytes % (Manual) Eosinophils % (Manual) Basophils % (Manual) Nucleated RBC % Seg Neutrophils # Seg Neutrophils # Man Lymphocytes # (Manual) Monocytes # (Manual) Eosinophils # (Manual) Basophils # (Manual) PT INR Fibrinogen dRVVT Confirm Interp Factor V Activity POC ABG pH POC ABG pCO2 POC ABG pO2 ABG pO2 ABG HCO3 ABG Base Excess ABG Hemoglobin Oxyhemoglobin Sodium Potassium Chloride Carbon Dioxide BUN Creatinine Glucose POC Glucose 108 H Lactic Acid Calcium Phosphorus Magnesium 1.60 L Direct Bilirubin AST ALT Alkaline Phosphatase Lactate Dehydrogenase Troponin T C-Reactive Protein Total Protein Albumin Prealbumin Triglycerides Cholesterol LDL Cholesterol Direct HDL Cholesterol Urine pH Urine WBC (Auto) Urine Creatinine Urine Total Protein Fluid Total Protein Vancomycin Trough Rheumatoid Factor Complement C4 Miscellaneous Test Crossmatch See Detail 11/25/16 11/25/16 11/25/16 00:03 04:42 04:42 WBC RBC 3.03 L Hgb 8.6 L Hct 25.3 L MCV MCH MCHC RDW 16.2 H Plt Count Lymph % (Auto) [place] % (Auto) 8.1 H Lymph # [place] # Baso # Seg Neutrophils % 71.3 H Seg Neuts % (Manual) Lymphocytes % (Manual) Monocytes % (Manual) Eosinophils % (Manual) Basophils % (Manual) Nucleated RBC % Seg Neutrophils # Seg Neutrophils # Man Lymphocytes # (Manual) Monocytes # (Manual) Eosinophils # (Manual) Basophils # (Manual) PT INR Fibrinogen dRVVT Confirm Interp Factor V Activity POC ABG pH POC ABG pCO2 POC ABG pO2 ABG pO2 ABG HCO3 ABG Base Excess ABG Hemoglobin Oxyhemoglobin Sodium Potassium Chloride Carbon Dioxide BUN 61 H Creatinine 3.0 H Glucose 102 H POC Glucose 113 H Lactic Acid Calcium 8.2 L Phosphorus Magnesium Direct Bilirubin AST ALT Alkaline Phosphatase 142 H Lactate Dehydrogenase Troponin T C-Reactive Protein Total Protein 5.7 L Albumin 1.5 L Prealbumin Triglycerides Cholesterol LDL Cholesterol Direct HDL Cholesterol Urine pH Urine WBC (Auto) Urine Creatinine Urine Total Protein Fluid Total Protein Vancomycin Trough Rheumatoid Factor Complement C4 Miscellaneous Test Crossmatch 11/25/16 11/25/16 11/25/16 05:12 11:31 14:12 WBC RBC Hgb Hct MCV MCH MCHC RDW Plt Count Lymph % (Auto) [place] % (Auto) Lymph # [place] # Baso # Seg Neutrophils % Seg Neuts % (Manual) Lymphocytes % (Manual) Monocytes % (Manual) Eosinophils % (Manual) Basophils % (Manual) Nucleated RBC % Seg Neutrophils # Seg Neutrophils # Man Lymphocytes # (Manual) Monocytes # (Manual) Eosinophils # (Manual) Basophils # (Manual) PT INR Fibrinogen dRVVT Confirm Interp Factor V Activity POC ABG pH 7.487 H POC ABG pCO2 POC ABG pO2 153 H ABG pO2 ABG HCO3 ABG Base Excess ABG Hemoglobin Oxyhemoglobin Sodium Potassium Chloride Carbon Dioxide BUN Creatinine Glucose POC Glucose 131 H 140 H Lactic Acid Calcium Phosphorus Magnesium Direct Bilirubin AST ALT Alkaline Phosphatase Lactate Dehydrogenase Troponin T C-Reactive Protein Total Protein Albumin Prealbumin Triglycerides Cholesterol LDL Cholesterol Direct HDL Cholesterol Urine pH Urine WBC (Auto) Urine Creatinine Urine Total Protein Fluid Total Protein Vancomycin Trough Rheumatoid Factor Complement C4 Miscellaneous Test Crossmatch 11/25/16 11/26/16 11/26/16 17:23 00:09 05:13 WBC RBC 2.94 L Hgb 8.4 L Hct 24.6 L MCV MCH MCHC RDW 16.4 H Plt Count Lymph % (Auto) [place] % (Auto) 12.3 H Lymph # [place] # 1.1 H Baso # Seg Neutrophils % Seg Neuts % (Manual) Lymphocytes % (Manual) Monocytes % (Manual) Eosinophils % (Manual) Basophils % (Manual) Nucleated RBC % Seg Neutrophils # Seg Neutrophils # Man Lymphocytes # (Manual) Monocytes # (Manual) Eosinophils # (Manual) Basophils # (Manual) PT INR Fibrinogen dRVVT Confirm Interp Factor V Activity POC ABG pH POC ABG pCO2 POC ABG pO2 ABG pO2 ABG HCO3 ABG Base Excess ABG Hemoglobin Oxyhemoglobin Sodium Potassium Chloride Carbon Dioxide BUN Creatinine Glucose POC Glucose 146 H 112 H Lactic Acid Calcium Phosphorus Magnesium Direct Bilirubin AST ALT Alkaline Phosphatase Lactate Dehydrogenase Troponin T C-Reactive Protein Total Protein Albumin Prealbumin Triglycerides Cholesterol LDL Cholesterol Direct HDL Cholesterol Urine pH Urine WBC (Auto) Urine Creatinine Urine Total Protein Fluid Total Protein Vancomycin Trough Rheumatoid Factor Complement C4 Miscellaneous Test Crossmatch 11/26/16 11/26/16 11/26/16 05:13 05:28 11:53 WBC RBC Hgb Hct MCV MCH MCHC RDW Plt Count Lymph % (Auto) [place] % (Auto) Lymph # [place] # Baso # Seg Neutrophils % Seg Neuts % (Manual) Lymphocytes % (Manual) Monocytes % (Manual) Eosinophils % (Manual) Basophils % (Manual) Nucleated RBC % Seg Neutrophils # Seg Neutrophils # Man Lymphocytes # (Manual) Monocytes # (Manual) Eosinophils # (Manual) Basophils # (Manual) PT INR Fibrinogen dRVVT Confirm Interp Factor V Activity POC ABG pH POC ABG pCO2 POC ABG pO2 ABG pO2 ABG HCO3 ABG Base Excess ABG Hemoglobin Oxyhemoglobin Sodium Potassium Chloride 97.8 L Carbon Dioxide BUN 37 H Creatinine 2.0 H Glucose 109 H POC Glucose 117 H 111 H Lactic Acid Calcium 7.9 L Phosphorus 1.80 L D Magnesium Direct Bilirubin AST ALT Alkaline Phosphatase Lactate Dehydrogenase Troponin T C-Reactive Protein Total Protein Albumin Prealbumin Triglycerides Cholesterol LDL Cholesterol Direct HDL Cholesterol Urine pH Urine WBC (Auto) Urine Creatinine Urine Total Protein Fluid Total Protein Vancomycin Trough Rheumatoid Factor Complement C4 Miscellaneous Test Crossmatch 11/26/16 11/27/16 11/27/16 17:14 04:50 06:02 WBC RBC Hgb Hct MCV MCH MCHC RDW Plt Count Lymph % (Auto) [place] % (Auto) Lymph # [place] # Baso # Seg Neutrophils % Seg Neuts % (Manual) Lymphocytes % (Manual) Monocytes % (Manual) Eosinophils % (Manual) Basophils % (Manual) Nucleated RBC % Seg Neutrophils # Seg Neutrophils # Man Lymphocytes # (Manual) Monocytes # (Manual) Eosinophils # (Manual) Basophils # (Manual) PT INR Fibrinogen dRVVT Confirm Interp Factor V Activity POC ABG pH POC ABG pCO2 POC ABG pO2 ABG pO2 75.2 L ABG HCO3 26.4 H ABG Base Excess ABG Hemoglobin 7.6 L Oxyhemoglobin 94.8 L Sodium Potassium Chloride Carbon Dioxide BUN 49 H Creatinine 2.3 H Glucose POC Glucose 115 H Lactic Acid Calcium Phosphorus 1.50 L Magnesium Direct Bilirubin AST ALT Alkaline Phosphatase Lactate Dehydrogenase Troponin T C-Reactive Protein Total Protein Albumin Prealbumin Triglycerides Cholesterol LDL Cholesterol Direct HDL Cholesterol Urine pH Urine WBC (Auto) Urine Creatinine Urine Total Protein Fluid Total Protein Vancomycin Trough Rheumatoid Factor Complement C4 Miscellaneous Test Crossmatch 11/27/16 11/27/16 11/27/16 06:02 11:25 17:25 WBC 11.6 H RBC 2.75 L Hgb 7.6 L Hct 23.4 L MCV MCH MCHC RDW 16.5 H Plt Count Lymph % (Auto) [place] % (Auto) Lymph # [place] # Baso # Seg Neutrophils % Seg Neuts % (Manual) Lymphocytes % (Manual) Monocytes % (Manual) Eosinophils % (Manual) Basophils % (Manual) Nucleated RBC % Seg Neutrophils # Seg Neutrophils # Man Lymphocytes # (Manual) Monocytes # (Manual) Eosinophils # (Manual) Basophils # (Manual) PT INR Fibrinogen dRVVT Confirm Interp Factor V Activity POC ABG pH POC ABG pCO2 POC ABG pO2 ABG pO2 ABG HCO3 ABG Base Excess ABG Hemoglobin Oxyhemoglobin Sodium Potassium Chloride Carbon Dioxide BUN Creatinine Glucose POC Glucose 114 H 126 H Lactic Acid Calcium Phosphorus Magnesium Direct Bilirubin AST ALT Alkaline Phosphatase Lactate Dehydrogenase Troponin T C-Reactive Protein Total Protein Albumin Prealbumin Triglycerides Cholesterol LDL Cholesterol Direct HDL Cholesterol Urine pH Urine WBC (Auto) Urine Creatinine Urine Total Protein Fluid Total Protein Vancomycin Trough Rheumatoid Factor Complement C4 Miscellaneous Test Crossmatch 11/28/16 11/28/16 11/28/16 04:45 05:33 05:44 WBC RBC Hgb Hct MCV MCH MCHC RDW Plt Count Lymph % (Auto) [place] % (Auto) Lymph # [place] # Baso # Seg Neutrophils % Seg Neuts % (Manual) Lymphocytes % (Manual) Monocytes % (Manual) Eosinophils % (Manual) Basophils % (Manual) Nucleated RBC % Seg Neutrophils # Seg Neutrophils # Man Lymphocytes # (Manual) Monocytes # (Manual) Eosinophils # (Manual) Basophils # (Manual) PT INR Fibrinogen dRVVT Confirm Interp Factor V Activity POC ABG pH POC ABG pCO2 POC ABG pO2 ABG pO2 99.3 H ABG HCO3 ABG Base Excess ABG Hemoglobin 8.3 L Oxyhemoglobin Sodium Potassium Chloride Carbon Dioxide BUN 63 H Creatinine 2.4 H Glucose 102 H POC Glucose 108 H Lactic Acid Calcium Phosphorus 1.80 L Magnesium Direct Bilirubin AST ALT Alkaline Phosphatase Lactate Dehydrogenase Troponin T C-Reactive Protein Total Protein Albumin Prealbumin Triglycerides Cholesterol LDL Cholesterol Direct HDL Cholesterol Urine pH Urine WBC (Auto) Urine Creatinine Urine Total Protein Fluid Total Protein Vancomycin Trough Rheumatoid Factor Complement C4 Miscellaneous Test Crossmatch 11/28/16 11/28/16 11/28/16 12:31 16:09 23:46 WBC RBC Hgb Hct MCV MCH MCHC RDW Plt Count Lymph % (Auto) [place] % (Auto) Lymph # [place] # Baso # Seg Neutrophils % Seg Neuts % (Manual) Lymphocytes % (Manual) Monocytes % (Manual) Eosinophils % (Manual) Basophils % (Manual) Nucleated RBC % Seg Neutrophils # Seg Neutrophils # Man Lymphocytes # (Manual) Monocytes # (Manual) Eosinophils # (Manual) Basophils # (Manual) PT INR Fibrinogen dRVVT Confirm Interp Factor V Activity POC ABG pH POC ABG pCO2 POC ABG pO2 ABG pO2 ABG HCO3 ABG Base Excess ABG Hemoglobin Oxyhemoglobin Sodium Potassium Chloride Carbon Dioxide BUN Creatinine Glucose POC Glucose 126 H 111 H 119 H Lactic Acid Calcium Phosphorus Magnesium Direct Bilirubin AST ALT Alkaline Phosphatase Lactate Dehydrogenase Troponin T C-Reactive Protein Total Protein Albumin Prealbumin Triglycerides Cholesterol LDL Cholesterol Direct HDL Cholesterol Urine pH Urine WBC (Auto) Urine Creatinine Urine Total Protein Fluid Total Protein Vancomycin Trough Rheumatoid Factor Complement C4 Miscellaneous Test Crossmatch 11/29/16 11/29/16 11/29/16 03:33 04:52 05:10 WBC RBC Hgb Hct MCV MCH MCHC RDW Plt Count Lymph % (Auto) [place] % (Auto) Lymph # [place] # Baso # Seg Neutrophils % Seg Neuts % (Manual) Lymphocytes % (Manual) Monocytes % (Manual) Eosinophils % (Manual) Basophils % (Manual) Nucleated RBC % Seg Neutrophils # Seg Neutrophils # Man Lymphocytes # (Manual) Monocytes # (Manual) Eosinophils # (Manual) Basophils # (Manual) PT INR Fibrinogen dRVVT Confirm Interp Factor V Activity POC ABG pH POC ABG pCO2 POC ABG pO2 ABG pO2 ABG HCO3 ABG Base Excess ABG Hemoglobin 7.0 L Oxyhemoglobin 94.9 L Sodium Potassium Chloride Carbon Dioxide BUN 73 H Creatinine 2.7 H Glucose POC Glucose 108 H Lactic Acid Calcium Phosphorus Magnesium Direct Bilirubin AST ALT Alkaline Phosphatase Lactate Dehydrogenase Troponin T C-Reactive Protein Total Protein Albumin Prealbumin Triglycerides Cholesterol LDL Cholesterol Direct HDL Cholesterol Urine pH Urine WBC (Auto) Urine Creatinine Urine Total Protein Fluid Total Protein Vancomycin Trough Rheumatoid Factor Complement C4 Miscellaneous Test Crossmatch 11/29/16 11/29/16 11/29/16 12:16 18:05 23:46 WBC RBC Hgb Hct MCV MCH MCHC RDW Plt Count Lymph % (Auto) [place] % (Auto) Lymph # [place] # Baso # Seg Neutrophils % Seg Neuts % (Manual) Lymphocytes % (Manual) Monocytes % (Manual) Eosinophils % (Manual) Basophils % (Manual) Nucleated RBC % Seg Neutrophils # Seg Neutrophils # Man Lymphocytes # (Manual) Monocytes # (Manual) Eosinophils # (Manual) Basophils # (Manual) PT INR Fibrinogen dRVVT Confirm Interp Factor V Activity POC ABG pH POC ABG pCO2 POC ABG pO2 ABG pO2 ABG HCO3 ABG Base Excess ABG Hemoglobin Oxyhemoglobin Sodium Potassium Chloride Carbon Dioxide BUN Creatinine Glucose POC Glucose 133 H 146 H 141 H Lactic Acid Calcium Phosphorus Magnesium Direct Bilirubin AST ALT Alkaline Phosphatase Lactate Dehydrogenase Troponin T C-Reactive Protein Total Protein Albumin Prealbumin Triglycerides Cholesterol LDL Cholesterol Direct HDL Cholesterol Urine pH Urine WBC (Auto) Urine Creatinine Urine Total Protein Fluid Total Protein Vancomycin Trough Rheumatoid Factor Complement C4 Miscellaneous Test Crossmatch 11/30/16 11/30/16 11/30/16 04:17 04:17 04:32 WBC 12.0 H RBC 2.80 L Hgb 7.8 L Hct 23.6 L MCV MCH MCHC RDW 16.6 H Plt Count Lymph % (Auto) [place] % (Auto) 11.3 H Lymph # [place] # 1.4 H Baso # Seg Neutrophils % Seg Neuts % (Manual) Lymphocytes % (Manual) Monocytes % (Manual) Eosinophils % (Manual) Basophils % (Manual) Nucleated RBC % Seg Neutrophils # 8.2 H Seg Neutrophils # Man Lymphocytes # (Manual) Monocytes # (Manual) Eosinophils # (Manual) Basophils # (Manual) PT INR Fibrinogen dRVVT Confirm Interp Factor V Activity POC ABG pH POC ABG pCO2 POC ABG pO2 ABG pO2 ABG HCO3 ABG Base Excess ABG Hemoglobin Oxyhemoglobin Sodium 169 H* D Potassium 5.1 H Chloride 121.5 H Carbon Dioxide BUN 34 H Creatinine 1.3 H D Glucose 133 H POC Glucose 131 H Lactic Acid Calcium 10.3 H Phosphorus Magnesium Direct Bilirubin AST ALT Alkaline Phosphatase Lactate Dehydrogenase Troponin T C-Reactive Protein Total Protein Albumin Prealbumin Triglycerides Cholesterol LDL Cholesterol Direct HDL Cholesterol Urine pH Urine WBC (Auto) Urine Creatinine Urine Total Protein Fluid Total Protein Vancomycin Trough Rheumatoid Factor Complement C4 Miscellaneous Test Crossmatch 11/30/16 11/30/16 11/30/16 05:45 11:10 17:26 WBC RBC Hgb Hct MCV MCH MCHC RDW Plt Count Lymph % (Auto) [place] % (Auto) Lymph # [place] # Baso # Seg Neutrophils % Seg Neuts % (Manual) Lymphocytes % (Manual) Monocytes % (Manual) Eosinophils % (Manual) Basophils % (Manual) Nucleated RBC % Seg Neutrophils # Seg Neutrophils # Man Lymphocytes # (Manual) Monocytes # (Manual) Eosinophils # (Manual) Basophils # (Manual) PT INR Fibrinogen dRVVT Confirm Interp Factor V Activity POC ABG pH POC ABG pCO2 POC ABG pO2 ABG pO2 ABG HCO3 ABG Base Excess ABG Hemoglobin Oxyhemoglobin Sodium Potassium Chloride Carbon Dioxide BUN 45 H Creatinine 1.6 H Glucose 131 H POC Glucose 146 H 134 H Lactic Acid Calcium Phosphorus Magnesium Direct Bilirubin AST ALT Alkaline Phosphatase Lactate Dehydrogenase Troponin T C-Reactive Protein Total Protein Albumin Prealbumin Triglycerides Cholesterol LDL Cholesterol Direct HDL Cholesterol Urine pH Urine WBC (Auto) Urine Creatinine Urine Total Protein Fluid Total Protein Vancomycin Trough Rheumatoid Factor Complement C4 Miscellaneous Test Crossmatch 11/30/16 12/01/16 12/01/16 23:35 00:06 03:35 WBC RBC Hgb Hct MCV MCH MCHC RDW Plt Count Lymph % (Auto) [place] % (Auto) Lymph # [place] # Baso # Seg Neutrophils % Seg Neuts % (Manual) Lymphocytes % (Manual) Monocytes % (Manual) Eosinophils % (Manual) Basophils % (Manual) Nucleated RBC % Seg Neutrophils # Seg Neutrophils # Man Lymphocytes # (Manual) Monocytes # (Manual) Eosinophils # (Manual) Basophils # (Manual) PT INR Fibrinogen dRVVT Confirm Interp Factor V Activity POC ABG pH POC ABG pCO2 POC ABG pO2 ABG pO2 ABG HCO3 ABG Base Excess ABG Hemoglobin 6.9 L Oxyhemoglobin Sodium Potassium Chloride Carbon Dioxide BUN 58 H Creatinine 1.8 H Glucose 146 H POC Glucose 151 H Lactic Acid Calcium Phosphorus Magnesium Direct Bilirubin AST ALT Alkaline Phosphatase Lactate Dehydrogenase Troponin T C-Reactive Protein Total Protein Albumin Prealbumin Triglycerides Cholesterol LDL Cholesterol Direct HDL Cholesterol Urine pH Urine WBC (Auto) Urine Creatinine Urine Total Protein Fluid Total Protein Vancomycin Trough Rheumatoid Factor Complement C4 Miscellaneous Test Crossmatch 12/01/16 12/01/16 12/01/16 03:35 05:47 11:52 WBC 12.3 H RBC 2.82 L Hgb 7.8 L Hct 23.7 L MCV MCH MCHC RDW 16.7 H Plt Count Lymph % (Auto) [place] % (Auto) 9.8 H Lymph # [place] # 1.2 H Baso # Seg Neutrophils % Seg Neuts % (Manual) Lymphocytes % (Manual) Monocytes % (Manual) Eosinophils % (Manual) Basophils % (Manual) Nucleated RBC % Seg Neutrophils # 8.4 H Seg Neutrophils # Man Lymphocytes # (Manual) Monocytes # (Manual) Eosinophils # (Manual) Basophils # (Manual) PT INR Fibrinogen dRVVT Confirm Interp Factor V Activity POC ABG pH POC ABG pCO2 POC ABG pO2 ABG pO2 ABG HCO3 ABG Base Excess ABG Hemoglobin Oxyhemoglobin Sodium Potassium Chloride Carbon Dioxide BUN Creatinine Glucose POC Glucose 152 H 152 H Lactic Acid Calcium Phosphorus Magnesium Direct Bilirubin AST ALT Alkaline Phosphatase Lactate Dehydrogenase Troponin T C-Reactive Protein Total Protein Albumin Prealbumin Triglycerides Cholesterol LDL Cholesterol Direct HDL Cholesterol Urine pH Urine WBC (Auto) Urine Creatinine Urine Total Protein Fluid Total Protein Vancomycin Trough Rheumatoid Factor Complement C4 Miscellaneous Test Crossmatch 12/01/16 12/01/16 12/02/16 17:40 23:41 05:00 WBC RBC Hgb Hct MCV MCH MCHC RDW Plt Count Lymph % (Auto) [place] % (Auto) Lymph # [place] # Baso # Seg Neutrophils % Seg Neuts % (Manual) Lymphocytes % (Manual) Monocytes % (Manual) Eosinophils % (Manual) Basophils % (Manual) Nucleated RBC % Seg Neutrophils # Seg Neutrophils # Man Lymphocytes # (Manual) Monocytes # (Manual) Eosinophils # (Manual) Basophils # (Manual) PT INR Fibrinogen dRVVT Confirm Interp Factor V Activity POC ABG pH POC ABG pCO2 POC ABG pO2 ABG pO2 ABG HCO3 ABG Base Excess ABG Hemoglobin Oxyhemoglobin Sodium Potassium Chloride Carbon Dioxide BUN 45 H Creatinine Glucose 115 H POC Glucose 140 H 144 H Lactic Acid Calcium Phosphorus Magnesium Direct Bilirubin AST ALT Alkaline Phosphatase Lactate Dehydrogenase Troponin T C-Reactive Protein Total Protein Albumin Prealbumin Triglycerides Cholesterol LDL Cholesterol Direct HDL Cholesterol Urine pH Urine WBC (Auto) Urine Creatinine Urine Total Protein Fluid Total Protein Vancomycin Trough Rheumatoid Factor Complement C4 Miscellaneous Test Crossmatch 12/02/16 12/02/16 12/02/16 05:31 11:20 17:38 WBC RBC Hgb Hct MCV MCH MCHC RDW Plt Count Lymph % (Auto) [place] % (Auto) Lymph # [place] # Baso # Seg Neutrophils % Seg Neuts % (Manual) Lymphocytes % (Manual) Monocytes % (Manual) Eosinophils % (Manual) Basophils % (Manual) Nucleated RBC % Seg Neutrophils # Seg Neutrophils # Man Lymphocytes # (Manual) Monocytes # (Manual) Eosinophils # (Manual) Basophils # (Manual) PT INR Fibrinogen dRVVT Confirm Interp Factor V Activity POC ABG pH POC ABG pCO2 POC ABG pO2 ABG pO2 ABG HCO3 ABG Base Excess ABG Hemoglobin Oxyhemoglobin Sodium Potassium Chloride Carbon Dioxide BUN Creatinine Glucose POC Glucose 136 H 177 H 139 H Lactic Acid Calcium Phosphorus Magnesium Direct Bilirubin AST ALT Alkaline Phosphatase Lactate Dehydrogenase Troponin T C-Reactive Protein Total Protein Albumin Prealbumin Triglycerides Cholesterol LDL Cholesterol Direct HDL Cholesterol Urine pH Urine WBC (Auto) Urine Creatinine Urine Total Protein Fluid Total Protein Vancomycin Trough Rheumatoid Factor Complement C4 Miscellaneous Test Crossmatch 12/02/16 12/03/16 12/03/16 23:43 04:00 04:00 WBC 20.4 H RBC 2.74 L Hgb 7.4 L Hct 23.6 L MCV MCH 27 L MCHC RDW 17.1 H Plt Count Lymph % (Auto) [place] % (Auto) Lymph # [place] # Baso # Seg Neutrophils % Seg Neuts % (Manual) 31.0 L Lymphocytes % (Manual) Monocytes % (Manual) Eosinophils % (Manual) Basophils % (Manual) Nucleated RBC % Seg Neutrophils # Seg Neutrophils # Man Lymphocytes # (Manual) Monocytes # (Manual) Eosinophils # (Manual) Basophils # (Manual) PT INR Fibrinogen dRVVT Confirm Interp Factor V Activity POC ABG pH POC ABG pCO2 POC ABG pO2 ABG pO2 ABG HCO3 ABG Base Excess ABG Hemoglobin Oxyhemoglobin Sodium Potassium Chloride Carbon Dioxide BUN 61 H Creatinine 1.6 H Glucose 119 H POC Glucose 158 H Lactic Acid Calcium Phosphorus Magnesium Direct Bilirubin AST ALT Alkaline Phosphatase Lactate Dehydrogenase Troponin T C-Reactive Protein Total Protein Albumin Prealbumin Triglycerides Cholesterol LDL Cholesterol Direct HDL Cholesterol Urine pH Urine WBC (Auto) Urine Creatinine Urine Total Protein Fluid Total Protein Vancomycin Trough Rheumatoid Factor Complement C4 Miscellaneous Test Crossmatch 12/03/16 12/03/16 12/03/16 05:02 12:11 18:16 WBC RBC Hgb Hct MCV MCH MCHC RDW Plt Count Lymph % (Auto) [place] % (Auto) Lymph # [place] # Baso # Seg Neutrophils % Seg Neuts % (Manual) Lymphocytes % (Manual) Monocytes % (Manual) Eosinophils % (Manual) Basophils % (Manual) Nucleated RBC % Seg Neutrophils # Seg Neutrophils # Man Lymphocytes # (Manual) Monocytes # (Manual) Eosinophils # (Manual) Basophils # (Manual) PT INR Fibrinogen dRVVT Confirm Interp Factor V Activity POC ABG pH POC ABG pCO2 POC ABG pO2 ABG pO2 ABG HCO3 ABG Base Excess ABG Hemoglobin Oxyhemoglobin Sodium Potassium Chloride Carbon Dioxide BUN Creatinine Glucose POC Glucose 146 H 157 H 124 H Lactic Acid Calcium Phosphorus Magnesium Direct Bilirubin AST ALT Alkaline Phosphatase Lactate Dehydrogenase Troponin T C-Reactive Protein Total Protein Albumin Prealbumin Triglycerides Cholesterol LDL Cholesterol Direct HDL Cholesterol Urine pH Urine WBC (Auto) Urine Creatinine Urine Total Protein Fluid Total Protein Vancomycin Trough Rheumatoid Factor Complement C4 Miscellaneous Test Crossmatch 12/03/16 12/04/16 12/04/16 23:41 04:00 04:45 WBC RBC Hgb Hct MCV MCH MCHC RDW Plt Count Lymph % (Auto) [place] % (Auto) Lymph # [place] # Baso # Seg Neutrophils % Seg Neuts % (Manual) Lymphocytes % (Manual) Monocytes % (Manual) Eosinophils % (Manual) Basophils % (Manual) Nucleated RBC % Seg Neutrophils # Seg Neutrophils # Man Lymphocytes # (Manual) Monocytes # (Manual) Eosinophils # (Manual) Basophils # (Manual) PT INR Fibrinogen dRVVT Confirm Interp Factor V Activity POC ABG pH POC ABG pCO2 POC ABG pO2 ABG pO2 ABG HCO3 ABG Base Excess ABG Hemoglobin Oxyhemoglobin Sodium Potassium Chloride Carbon Dioxide BUN 76 H Creatinine 1.6 H Glucose POC Glucose 130 H 136 H Lactic Acid Calcium Phosphorus Magnesium Direct Bilirubin AST ALT Alkaline Phosphatase 155 H Lactate Dehydrogenase Troponin T C-Reactive Protein Total Protein 5.5 L Albumin 1.5 L Prealbumin Triglycerides Cholesterol LDL Cholesterol Direct HDL Cholesterol Urine pH Urine WBC (Auto) Urine Creatinine Urine Total Protein Fluid Total Protein Vancomycin Trough Rheumatoid Factor Complement C4 Miscellaneous Test Crossmatch 12/04/16 12/04/16 12/05/16 12:08 17:23 00:10 WBC RBC Hgb Hct MCV MCH MCHC RDW Plt Count Lymph % (Auto) [place] % (Auto) Lymph # [place] # Baso # Seg Neutrophils % Seg Neuts % (Manual) Lymphocytes % (Manual) Monocytes % (Manual) Eosinophils % (Manual) Basophils % (Manual) Nucleated RBC % Seg Neutrophils # Seg Neutrophils # Man Lymphocytes # (Manual) Monocytes # (Manual) Eosinophils # (Manual) Basophils # (Manual) PT INR Fibrinogen dRVVT Confirm Interp Factor V Activity POC ABG pH POC ABG pCO2 POC ABG pO2 ABG pO2 ABG HCO3 ABG Base Excess ABG Hemoglobin Oxyhemoglobin Sodium Potassium Chloride Carbon Dioxide BUN Creatinine Glucose POC Glucose 114 H 129 H 124 H Lactic Acid Calcium Phosphorus Magnesium Direct Bilirubin AST ALT Alkaline Phosphatase Lactate Dehydrogenase Troponin T C-Reactive Protein Total Protein Albumin Prealbumin Triglycerides Cholesterol LDL Cholesterol Direct HDL Cholesterol Urine pH Urine WBC (Auto) Urine Creatinine Urine Total Protein Fluid Total Protein Vancomycin Trough Rheumatoid Factor Complement C4 Miscellaneous Test Crossmatch 12/05/16 12/05/16 12/05/16 05:00 05:00 05:18 WBC RBC Hgb Hct MCV MCH MCHC RDW Plt Count Lymph % (Auto) [place] % (Auto) Lymph # [place] # Baso # Seg Neutrophils % Seg Neuts % (Manual) Lymphocytes % (Manual) Monocytes % (Manual) Eosinophils % (Manual) Basophils % (Manual) Nucleated RBC % Seg Neutrophils # Seg Neutrophils # Man Lymphocytes # (Manual) Monocytes # (Manual) Eosinophils # (Manual) Basophils # (Manual) PT INR Fibrinogen dRVVT Confirm Interp Factor V Activity POC ABG pH POC ABG pCO2 POC ABG pO2 ABG pO2 ABG HCO3 ABG Base Excess ABG Hemoglobin Oxyhemoglobin Sodium Potassium Chloride Carbon Dioxide 21 L BUN 85 H Creatinine 1.9 H Glucose 131 H POC Glucose 154 H Lactic Acid Calcium Phosphorus Magnesium Direct Bilirubin AST ALT Alkaline Phosphatase Lactate Dehydrogenase Troponin T C-Reactive Protein 19.30 H Total Protein Albumin Prealbumin Triglycerides Cholesterol LDL Cholesterol Direct HDL Cholesterol Urine pH Urine WBC (Auto) Urine Creatinine Urine Total Protein Fluid Total Protein Vancomycin Trough Rheumatoid Factor Complement C4 Miscellaneous Test Crossmatch 12/05/16 12/05/16 12/05/16 11:43 17:46 23:25 WBC RBC Hgb Hct MCV MCH MCHC RDW Plt Count Lymph % (Auto) [place] % (Auto) Lymph # [place] # Baso # Seg Neutrophils % Seg Neuts % (Manual) Lymphocytes % (Manual) Monocytes % (Manual) Eosinophils % (Manual) Basophils % (Manual) Nucleated RBC % Seg Neutrophils # Seg Neutrophils # Man Lymphocytes # (Manual) Monocytes # (Manual) Eosinophils # (Manual) Basophils # (Manual) PT INR Fibrinogen dRVVT Confirm Interp Factor V Activity POC ABG pH POC ABG pCO2 POC ABG pO2 ABG pO2 ABG HCO3 ABG Base Excess ABG Hemoglobin Oxyhemoglobin Sodium Potassium Chloride Carbon Dioxide BUN Creatinine Glucose POC Glucose 117 H 113 H 111 H Lactic Acid Calcium Phosphorus Magnesium Direct Bilirubin AST ALT Alkaline Phosphatase Lactate Dehydrogenase Troponin T C-Reactive Protein Total Protein Albumin Prealbumin Triglycerides Cholesterol LDL Cholesterol Direct HDL Cholesterol Urine pH Urine WBC (Auto) Urine Creatinine Urine Total Protein Fluid Total Protein Vancomycin Trough Rheumatoid Factor Complement C4 Miscellaneous Test Crossmatch 12/05/16 12/06/16 12/06/16 Unknown 04:58 06:00 WBC RBC Hgb Hct MCV MCH MCHC RDW Plt Count Lymph % (Auto) [place] % (Auto) Lymph # [place] # Baso # Seg Neutrophils % Seg Neuts % (Manual) Lymphocytes % (Manual) Monocytes % (Manual) Eosinophils % (Manual) Basophils % (Manual) Nucleated RBC % Seg Neutrophils # Seg Neutrophils # Man Lymphocytes # (Manual) Monocytes # (Manual) Eosinophils # (Manual) Basophils # (Manual) PT INR Fibrinogen dRVVT Confirm Interp Factor V Activity POC ABG pH POC ABG pCO2 POC ABG pO2 ABG pO2 75.2 L ABG HCO3 ABG Base Excess -3.4 L ABG Hemoglobin 7.4 L Oxyhemoglobin 94.5 L Sodium Potassium Chloride Carbon Dioxide 20 L BUN 99 H Creatinine 2.1 H Glucose 126 H POC Glucose 145 H Lactic Acid Calcium Phosphorus 4.80 H Magnesium Direct Bilirubin AST ALT Alkaline Phosphatase Lactate Dehydrogenase Troponin T C-Reactive Protein Total Protein Albumin Prealbumin Triglycerides Cholesterol LDL Cholesterol Direct HDL Cholesterol Urine pH Urine WBC (Auto) Urine Creatinine Urine Total Protein Fluid Total Protein Vancomycin Trough Rheumatoid Factor Complement C4 Miscellaneous Test Crossmatch 12/06/16 12/06/16 12/06/16 06:46 11:54 17:55 WBC RBC Hgb 8.3 L Hct 26.4 L MCV MCH MCHC RDW Plt Count Lymph % (Auto) [place] % (Auto) Lymph # [place] # Baso # Seg Neutrophils % Seg Neuts % (Manual) Lymphocytes % (Manual) Monocytes % (Manual) Eosinophils % (Manual) Basophils % (Manual) Nucleated RBC % Seg Neutrophils # Seg Neutrophils # Man Lymphocytes # (Manual) Monocytes # (Manual) Eosinophils # (Manual) Basophils # (Manual) PT INR Fibrinogen dRVVT Confirm Interp Factor V Activity POC ABG pH POC ABG pCO2 POC ABG pO2 ABG pO2 ABG HCO3 ABG Base Excess ABG Hemoglobin Oxyhemoglobin Sodium Potassium Chloride Carbon Dioxide BUN Creatinine Glucose POC Glucose 126 H 157 H Lactic Acid Calcium Phosphorus Magnesium Direct Bilirubin AST ALT Alkaline Phosphatase Lactate Dehydrogenase Troponin T C-Reactive Protein Total Protein Albumin Prealbumin Triglycerides Cholesterol LDL Cholesterol Direct HDL Cholesterol Urine pH Urine WBC (Auto) Urine Creatinine Urine Total Protein Fluid Total Protein Vancomycin Trough Rheumatoid Factor Complement C4 Miscellaneous Test Crossmatch 12/06/16 12/07/16 12/07/16 23:59 05:34 06:30 WBC RBC Hgb Hct MCV MCH MCHC RDW Plt Count Lymph % (Auto) [place] % (Auto) Lymph # [place] # Baso # Seg Neutrophils % Seg Neuts % (Manual) Lymphocytes % (Manual) Monocytes % (Manual) Eosinophils % (Manual) Basophils % (Manual) Nucleated RBC % Seg Neutrophils # Seg Neutrophils # Man Lymphocytes # (Manual) Monocytes # (Manual) Eosinophils # (Manual) Basophils # (Manual) PT INR Fibrinogen dRVVT Confirm Interp Factor V Activity POC ABG pH POC ABG pCO2 POC ABG pO2 ABG pO2 ABG HCO3 ABG Base Excess ABG Hemoglobin Oxyhemoglobin Sodium Potassium Chloride Carbon Dioxide BUN 67 H Creatinine 1.4 H Glucose 126 H POC Glucose 129 H 129 H Lactic Acid Calcium Phosphorus Magnesium Direct Bilirubin AST ALT Alkaline Phosphatase Lactate Dehydrogenase Troponin T C-Reactive Protein Total Protein Albumin Prealbumin Triglycerides Cholesterol LDL Cholesterol Direct HDL Cholesterol Urine pH Urine WBC (Auto) Urine Creatinine Urine Total Protein Fluid Total Protein Vancomycin Trough Rheumatoid Factor Complement C4 Miscellaneous Test Crossmatch 12/07/16 12/07/16 12/07/16 06:30 08:00 09:45 WBC 18.8 H RBC 2.52 L Hgb 6.9 L 6.8 L Hct 21.2 L 21.1 L MCV MCH 27 L MCHC RDW 18.0 H Plt Count Lymph % (Auto) [place] % (Auto) 9.9 H Lymph # [place] # 1.9 H Baso # Seg Neutrophils % 71.8 H Seg Neuts % (Manual) Lymphocytes % (Manual) Monocytes % (Manual) Eosinophils % (Manual) Basophils % (Manual) Nucleated RBC % Seg Neutrophils # 13.5 H Seg Neutrophils # Man Lymphocytes # (Manual) Monocytes # (Manual) Eosinophils # (Manual) Basophils # (Manual) PT INR Fibrinogen dRVVT Confirm Interp Factor V Activity POC ABG pH POC ABG pCO2 POC ABG pO2 ABG pO2 ABG HCO3 ABG Base Excess ABG Hemoglobin Oxyhemoglobin Sodium Potassium Chloride Carbon Dioxide BUN Creatinine Glucose POC Glucose Lactic Acid Calcium Phosphorus Magnesium Direct Bilirubin AST ALT Alkaline Phosphatase Lactate Dehydrogenase Troponin T C-Reactive Protein Total Protein Albumin Prealbumin Triglycerides Cholesterol LDL Cholesterol Direct HDL Cholesterol Urine pH Urine WBC (Auto) Urine Creatinine Urine Total Protein Fluid Total Protein Vancomycin Trough Rheumatoid Factor Complement C4 Miscellaneous Test Crossmatch See Detail 12/07/16 12/07/16 12/07/16 11:44 18:19 23:59 WBC RBC Hgb Hct MCV MCH MCHC RDW Plt Count Lymph % (Auto) [place] % (Auto) Lymph # [place] # Baso # Seg Neutrophils % Seg Neuts % (Manual) Lymphocytes % (Manual) Monocytes % (Manual) Eosinophils % (Manual) Basophils % (Manual) Nucleated RBC % Seg Neutrophils # Seg Neutrophils # Man Lymphocytes # (Manual) Monocytes # (Manual) Eosinophils # (Manual) Basophils # (Manual) PT INR Fibrinogen dRVVT Confirm Interp Factor V Activity POC ABG pH POC ABG pCO2 POC ABG pO2 ABG pO2 ABG HCO3 ABG Base Excess ABG Hemoglobin Oxyhemoglobin Sodium Potassium Chloride Carbon Dioxide BUN Creatinine Glucose POC Glucose 137 H 138 H 133 H Lactic Acid Calcium Phosphorus Magnesium Direct Bilirubin AST ALT Alkaline Phosphatase Lactate Dehydrogenase Troponin T C-Reactive Protein Total Protein Albumin Prealbumin Triglycerides Cholesterol LDL Cholesterol Direct HDL Cholesterol Urine pH Urine WBC (Auto) Urine Creatinine Urine Total Protein Fluid Total Protein Vancomycin Trough Rheumatoid Factor Complement C4 Miscellaneous Test Crossmatch 12/08/16 12/08/16 12/08/16 05:25 05:30 05:30 WBC 23.8 H RBC 2.88 L Hgb 8.1 L Hct 24.3 L MCV MCH MCHC RDW 16.7 H Plt Count Lymph % (Auto) [place] % (Auto) Lymph # [place] # Baso # Seg Neutrophils % Seg Neuts % (Manual) 76.0 H Lymphocytes % (Manual) 9.0 L Monocytes % (Manual) 9.0 H Eosinophils % (Manual) Basophils % (Manual) Nucleated RBC % Seg Neutrophils # Seg Neutrophils # Man 18.1 H Lymphocytes # (Manual) Monocytes # (Manual) 2.1 H Eosinophils # (Manual) Basophils # (Manual) PT INR Fibrinogen dRVVT Confirm Interp Factor V Activity POC ABG pH POC ABG pCO2 POC ABG pO2 ABG pO2 ABG HCO3 ABG Base Excess ABG Hemoglobin Oxyhemoglobin Sodium Potassium Chloride Carbon Dioxide 21 L BUN 76 H Creatinine 1.6 H Glucose 133 H POC Glucose 177 H Lactic Acid Calcium Phosphorus Magnesium Direct Bilirubin AST ALT Alkaline Phosphatase Lactate Dehydrogenase Troponin T C-Reactive Protein Total Protein Albumin Prealbumin Triglycerides Cholesterol LDL Cholesterol Direct HDL Cholesterol Urine pH Urine WBC (Auto) Urine Creatinine Urine Total Protein Fluid Total Protein Vancomycin Trough Rheumatoid Factor Complement C4 Miscellaneous Test Crossmatch 12/08/16 12/08/16 12/09/16 11:45 18:00 00:00 WBC RBC Hgb Hct MCV MCH MCHC RDW Plt Count Lymph % (Auto) [place] % (Auto) Lymph # [place] # Baso # Seg Neutrophils % Seg Neuts % (Manual) Lymphocytes % (Manual) Monocytes % (Manual) Eosinophils % (Manual) Basophils % (Manual) Nucleated RBC % Seg Neutrophils # Seg Neutrophils # Man Lymphocytes # (Manual) Monocytes # (Manual) Eosinophils # (Manual) Basophils # (Manual) PT INR Fibrinogen dRVVT Confirm Interp Factor V Activity POC ABG pH POC ABG pCO2 POC ABG pO2 ABG pO2 ABG HCO3 ABG Base Excess ABG Hemoglobin Oxyhemoglobin Sodium Potassium Chloride Carbon Dioxide BUN Creatinine Glucose POC Glucose 163 H 123 H 137 H Lactic Acid Calcium Phosphorus Magnesium Direct Bilirubin AST ALT Alkaline Phosphatase Lactate Dehydrogenase Troponin T C-Reactive Protein Total Protein Albumin Prealbumin Triglycerides Cholesterol LDL Cholesterol Direct HDL Cholesterol Urine pH Urine WBC (Auto) Urine Creatinine Urine Total Protein Fluid Total Protein Vancomycin Trough Rheumatoid Factor Complement C4 Miscellaneous Test Crossmatch 12/09/16 12/09/16 12/09/16 05:34 06:00 06:00 WBC 15.5 H RBC 2.87 L Hgb 8.0 L Hct 24.2 L MCV MCH MCHC RDW 17.2 H Plt Count Lymph % (Auto) [place] % (Auto) 11.6 H Lymph # [place] # 1.8 H Baso # Seg Neutrophils % 70.8 H Seg Neuts % (Manual) Lymphocytes % (Manual) Monocytes % (Manual) Eosinophils % (Manual) Basophils % (Manual) Nucleated RBC % Seg Neutrophils # 11.0 H Seg Neutrophils # Man Lymphocytes # (Manual) Monocytes # (Manual) Eosinophils # (Manual) Basophils # (Manual) PT INR Fibrinogen dRVVT Confirm Interp Factor V Activity POC ABG pH POC ABG pCO2 POC ABG pO2 ABG pO2 ABG HCO3 ABG Base Excess ABG Hemoglobin Oxyhemoglobin Sodium Potassium Chloride Carbon Dioxide BUN 51 H Creatinine Glucose 117 H POC Glucose 136 H Lactic Acid Calcium Phosphorus Magnesium Direct Bilirubin AST ALT Alkaline Phosphatase Lactate Dehydrogenase Troponin T C-Reactive Protein Total Protein Albumin Prealbumin Triglycerides Cholesterol LDL Cholesterol Direct HDL Cholesterol Urine pH Urine WBC (Auto) Urine Creatinine Urine Total Protein Fluid Total Protein Vancomycin Trough Rheumatoid Factor Complement C4 Miscellaneous Test Crossmatch 12/09/16 12/09/16 12/09/16 12:29 17:52 23:10 WBC RBC Hgb Hct MCV MCH MCHC RDW Plt Count Lymph % (Auto) [place] % (Auto) Lymph # [place] # Baso # Seg Neutrophils % Seg Neuts % (Manual) Lymphocytes % (Manual) Monocytes % (Manual) Eosinophils % (Manual) Basophils % (Manual) Nucleated RBC % Seg Neutrophils # Seg Neutrophils # Man Lymphocytes # (Manual) Monocytes # (Manual) Eosinophils # (Manual) Basophils # (Manual) PT INR Fibrinogen dRVVT Confirm Interp Factor V Activity POC ABG pH POC ABG pCO2 POC ABG pO2 ABG pO2 ABG HCO3 ABG Base Excess ABG Hemoglobin Oxyhemoglobin Sodium Potassium Chloride Carbon Dioxide BUN Creatinine Glucose POC Glucose 139 H 140 H 129 H Lactic Acid Calcium Phosphorus Magnesium Direct Bilirubin AST ALT Alkaline Phosphatase Lactate Dehydrogenase Troponin T C-Reactive Protein Total Protein Albumin Prealbumin Triglycerides Cholesterol LDL Cholesterol Direct HDL Cholesterol Urine pH Urine WBC (Auto) Urine Creatinine Urine Total Protein Fluid Total Protein Vancomycin Trough Rheumatoid Factor Complement C4 Miscellaneous Test Crossmatch 12/10/16 12/10/16 12/10/16 05:00 05:00 06:54 WBC 15.7 H RBC 2.87 L Hgb 8.2 L Hct 24.4 L MCV MCH MCHC RDW 17.2 H Plt Count Lymph % (Auto) [place] % (Auto) 8.3 H Lymph # [place] # 1.3 H Baso # Seg Neutrophils % 72.8 H Seg Neuts % (Manual) Lymphocytes % (Manual) Monocytes % (Manual) Eosinophils % (Manual) Basophils % (Manual) Nucleated RBC % Seg Neutrophils # 11.4 H Seg Neutrophils # Man Lymphocytes # (Manual) Monocytes # (Manual) Eosinophils # (Manual) Basophils # (Manual) PT INR Fibrinogen dRVVT Confirm Interp Factor V Activity POC ABG pH POC ABG pCO2 POC ABG pO2 ABG pO2 ABG HCO3 ABG Base Excess ABG Hemoglobin Oxyhemoglobin Sodium Potassium Chloride Carbon Dioxide BUN 64 H Creatinine 1.4 H Glucose 134 H POC Glucose 154 H Lactic Acid Calcium Phosphorus Magnesium Direct Bilirubin AST ALT Alkaline Phosphatase Lactate Dehydrogenase Troponin T C-Reactive Protein Total Protein Albumin Prealbumin Triglycerides Cholesterol LDL Cholesterol Direct HDL Cholesterol Urine pH Urine WBC (Auto) Urine Creatinine Urine Total Protein Fluid Total Protein Vancomycin Trough Rheumatoid Factor Complement C4 Miscellaneous Test Crossmatch 12/10/16 12/10/16 12/10/16 11:58 17:29 23:52 WBC RBC Hgb Hct MCV MCH MCHC RDW Plt Count Lymph % (Auto) [place] % (Auto) Lymph # [place] # Baso # Seg Neutrophils % Seg Neuts % (Manual) Lymphocytes % (Manual) Monocytes % (Manual) Eosinophils % (Manual) Basophils % (Manual) Nucleated RBC % Seg Neutrophils # Seg Neutrophils # Man Lymphocytes # (Manual) Monocytes # (Manual) Eosinophils # (Manual) Basophils # (Manual) PT INR Fibrinogen dRVVT Confirm Interp Factor V Activity POC ABG pH POC ABG pCO2 POC ABG pO2 ABG pO2 ABG HCO3 ABG Base Excess ABG Hemoglobin Oxyhemoglobin Sodium Potassium Chloride Carbon Dioxide BUN Creatinine Glucose POC Glucose 144 H 163 H 125 H Lactic Acid Calcium Phosphorus Magnesium Direct Bilirubin AST ALT Alkaline Phosphatase Lactate Dehydrogenase Troponin T C-Reactive Protein Total Protein Albumin Prealbumin Triglycerides Cholesterol LDL Cholesterol Direct HDL Cholesterol Urine pH Urine WBC (Auto) Urine Creatinine Urine Total Protein Fluid Total Protein Vancomycin Trough Rheumatoid Factor Complement C4 Miscellaneous Test Crossmatch 12/11/16 12/11/16 12/11/16 05:38 06:30 06:30 WBC 14.4 H RBC 2.76 L Hgb 7.7 L Hct 23.4 L MCV MCH MCHC RDW 17.2 H Plt Count Lymph % (Auto) [place] % (Auto) 8.8 H Lymph # [place] # 1.3 H Baso # Seg Neutrophils % 72.5 H Seg Neuts % (Manual) Lymphocytes % (Manual) Monocytes % (Manual) Eosinophils % (Manual) Basophils % (Manual) Nucleated RBC % Seg Neutrophils # 10.5 H Seg Neutrophils # Man Lymphocytes # (Manual) Monocytes # (Manual) Eosinophils # (Manual) Basophils # (Manual) PT INR Fibrinogen dRVVT Confirm Interp Factor V Activity POC ABG pH POC ABG pCO2 POC ABG pO2 ABG pO2 ABG HCO3 ABG Base Excess ABG Hemoglobin Oxyhemoglobin Sodium Potassium Chloride Carbon Dioxide BUN 43 H Creatinine Glucose 124 H POC Glucose 141 H Lactic Acid Calcium 8.3 L Phosphorus Magnesium 1.60 L Direct Bilirubin AST ALT Alkaline Phosphatase Lactate Dehydrogenase Troponin T C-Reactive Protein Total Protein Albumin Prealbumin Triglycerides Cholesterol LDL Cholesterol Direct HDL Cholesterol Urine pH Urine WBC (Auto) Urine Creatinine Urine Total Protein Fluid Total Protein Vancomycin Trough Rheumatoid Factor Complement C4 Miscellaneous Test Crossmatch 12/11/16 12/11/16 12/11/16 11:15 17:59 23:48 WBC RBC Hgb Hct MCV MCH MCHC RDW Plt Count Lymph % (Auto) [place] % (Auto) Lymph # [place] # Baso # Seg Neutrophils % Seg Neuts % (Manual) Lymphocytes % (Manual) Monocytes % (Manual) Eosinophils % (Manual) Basophils % (Manual) Nucleated RBC % Seg Neutrophils # Seg Neutrophils # Man Lymphocytes # (Manual) Monocytes # (Manual) Eosinophils # (Manual) Basophils # (Manual) PT INR Fibrinogen dRVVT Confirm Interp Factor V Activity POC ABG pH POC ABG pCO2 POC ABG pO2 ABG pO2 ABG HCO3 ABG Base Excess ABG Hemoglobin Oxyhemoglobin Sodium Potassium Chloride Carbon Dioxide BUN Creatinine Glucose POC Glucose 188 H 106 H 119 H Lactic Acid Calcium Phosphorus Magnesium Direct Bilirubin AST ALT Alkaline Phosphatase Lactate Dehydrogenase Troponin T C-Reactive Protein Total Protein Albumin Prealbumin Triglycerides Cholesterol LDL Cholesterol Direct HDL Cholesterol Urine pH Urine WBC (Auto) Urine Creatinine Urine Total Protein Fluid Total Protein Vancomycin Trough Rheumatoid Factor Complement C4 Miscellaneous Test Crossmatch 12/12/16 12/12/16 12/12/16 05:00 06:01 12:20 WBC 16.7 H RBC 2.87 L Hgb 8.0 L Hct 24.2 L MCV MCH MCHC RDW 17.6 H Plt Count Lymph % (Auto) [place] % (Auto) Lymph # [place] # 1.2 H Baso # Seg Neutrophils % 75.3 H Seg Neuts % (Manual) Lymphocytes % (Manual) Monocytes % (Manual) Eosinophils % (Manual) Basophils % (Manual) Nucleated RBC % Seg Neutrophils # 12.6 H Seg Neutrophils # Man Lymphocytes # (Manual) Monocytes # (Manual) Eosinophils # (Manual) Basophils # (Manual) PT INR Fibrinogen dRVVT Confirm Interp Factor V Activity POC ABG pH POC ABG pCO2 POC ABG pO2 ABG pO2 ABG HCO3 ABG Base Excess ABG Hemoglobin Oxyhemoglobin Sodium Potassium Chloride Carbon Dioxide BUN Creatinine Glucose POC Glucose 134 H 149 H Lactic Acid Calcium Phosphorus Magnesium Direct Bilirubin AST ALT Alkaline Phosphatase Lactate Dehydrogenase Troponin T C-Reactive Protein Total Protein Albumin Prealbumin Triglycerides Cholesterol LDL Cholesterol Direct HDL Cholesterol Urine pH Urine WBC (Auto) Urine Creatinine Urine Total Protein Fluid Total Protein Vancomycin Trough Rheumatoid Factor Complement C4 Miscellaneous Test Crossmatch 12/12/16 12/12/16 12/12/16 17:38 23:01 Unknown WBC RBC Hgb Hct MCV MCH MCHC RDW Plt Count Lymph % (Auto) [place] % (Auto) Lymph # [place] # Baso # Seg Neutrophils % Seg Neuts % (Manual) Lymphocytes % (Manual) Monocytes % (Manual) Eosinophils % (Manual) Basophils % (Manual) Nucleated RBC % Seg Neutrophils # Seg Neutrophils # Man Lymphocytes # (Manual) Monocytes # (Manual) Eosinophils # (Manual) Basophils # (Manual) PT INR Fibrinogen dRVVT Confirm Interp Factor V Activity POC ABG pH POC ABG pCO2 POC ABG pO2 ABG pO2 ABG HCO3 ABG Base Excess ABG Hemoglobin Oxyhemoglobin Sodium Potassium Chloride Carbon Dioxide BUN 60 H Creatinine 1.3 H Glucose 126 H POC Glucose 127 H 144 H Lactic Acid Calcium Phosphorus Magnesium Direct Bilirubin AST ALT Alkaline Phosphatase Lactate Dehydrogenase Troponin T C-Reactive Protein Total Protein Albumin Prealbumin Triglycerides Cholesterol LDL Cholesterol Direct HDL Cholesterol Urine pH Urine WBC (Auto) Urine Creatinine Urine Total Protein Fluid Total Protein Vancomycin Trough Rheumatoid Factor Complement C4 Miscellaneous Test Crossmatch 12/13/16 12/13/16 12/13/16 04:00 04:00 05:19 WBC 18.7 H RBC 2.89 L Hgb 8.3 L Hct 24.6 L MCV MCH MCHC RDW 17.5 H Plt Count Lymph % (Auto) [place] % (Auto) Lymph # [place] # 1.3 H Baso # Seg Neutrophils % 71.5 H Seg Neuts % (Manual) Lymphocytes % (Manual) Monocytes % (Manual) Eosinophils % (Manual) Basophils % (Manual) Nucleated RBC % Seg Neutrophils # 13.4 H Seg Neutrophils # Man Lymphocytes # (Manual) Monocytes # (Manual) Eosinophils # (Manual) Basophils # (Manual) PT INR Fibrinogen dRVVT Confirm Interp Factor V Activity POC ABG pH POC ABG pCO2 POC ABG pO2 ABG pO2 ABG HCO3 ABG Base Excess ABG Hemoglobin Oxyhemoglobin Sodium Potassium Chloride Carbon Dioxide BUN 73 H Creatinine 1.5 H Glucose 141 H POC Glucose 171 H Lactic Acid Calcium Phosphorus Magnesium Direct Bilirubin AST ALT Alkaline Phosphatase Lactate Dehydrogenase Troponin T C-Reactive Protein Total Protein Albumin Prealbumin Triglycerides Cholesterol LDL Cholesterol Direct HDL Cholesterol Urine pH Urine WBC (Auto) Urine Creatinine Urine Total Protein Fluid Total Protein Vancomycin Trough Rheumatoid Factor Complement C4 Miscellaneous Test Crossmatch 12/13/16 12/13/16 12/14/16 12:28 16:48 00:01 WBC RBC Hgb Hct MCV MCH MCHC RDW Plt Count Lymph % (Auto) [place] % (Auto) Lymph # [place] # Baso # Seg Neutrophils % Seg Neuts % (Manual) Lymphocytes % (Manual) Monocytes % (Manual) Eosinophils % (Manual) Basophils % (Manual) Nucleated RBC % Seg Neutrophils # Seg Neutrophils # Man Lymphocytes # (Manual) Monocytes # (Manual) Eosinophils # (Manual) Basophils # (Manual) PT INR Fibrinogen dRVVT Confirm Interp Factor V Activity POC ABG pH POC ABG pCO2 POC ABG pO2 ABG pO2 ABG HCO3 ABG Base Excess ABG Hemoglobin Oxyhemoglobin Sodium Potassium Chloride Carbon Dioxide BUN Creatinine Glucose POC Glucose 206 H 173 H 139 H Lactic Acid Calcium Phosphorus Magnesium Direct Bilirubin AST ALT Alkaline Phosphatase Lactate Dehydrogenase Troponin T C-Reactive Protein Total Protein Albumin Prealbumin Triglycerides Cholesterol LDL Cholesterol Direct HDL Cholesterol Urine pH Urine WBC (Auto) Urine Creatinine Urine Total Protein Fluid Total Protein Vancomycin Trough Rheumatoid Factor Complement C4 Miscellaneous Test Crossmatch 12/14/16 12/14/16 12/14/16 05:16 06:10 11:17 WBC RBC Hgb Hct MCV MCH MCHC RDW Plt Count Lymph % (Auto) [place] % (Auto) Lymph # [place] # Baso # Seg Neutrophils % Seg Neuts % (Manual) Lymphocytes % (Manual) Monocytes % (Manual) Eosinophils % (Manual) Basophils % (Manual) Nucleated RBC % Seg Neutrophils # Seg Neutrophils # Man Lymphocytes # (Manual) Monocytes # (Manual) Eosinophils # (Manual) Basophils # (Manual) PT INR Fibrinogen dRVVT Confirm Interp Factor V Activity POC ABG pH POC ABG pCO2 POC ABG pO2 ABG pO2 ABG HCO3 ABG Base Excess ABG Hemoglobin Oxyhemoglobin Sodium Potassium Chloride Carbon Dioxide BUN 57 H Creatinine 1.4 H Glucose 135 H POC Glucose 158 H 137 H Lactic Acid Calcium Phosphorus Magnesium Direct Bilirubin AST ALT Alkaline Phosphatase Lactate Dehydrogenase Troponin T C-Reactive Protein Total Protein Albumin Prealbumin Triglycerides Cholesterol LDL Cholesterol Direct HDL Cholesterol Urine pH Urine WBC (Auto) Urine Creatinine Urine Total Protein Fluid Total Protein Vancomycin Trough Rheumatoid Factor Complement C4 Miscellaneous Test Crossmatch 12/14/16 12/14/16 12/15/16 17:52 23:27 04:00 WBC RBC Hgb Hct MCV MCH MCHC RDW Plt Count Lymph % (Auto) [place] % (Auto) Lymph # [place] # Baso # Seg Neutrophils % Seg Neuts % (Manual) Lymphocytes % (Manual) Monocytes % (Manual) Eosinophils % (Manual) Basophils % (Manual) Nucleated RBC % Seg Neutrophils # Seg Neutrophils # Man Lymphocytes # (Manual) Monocytes # (Manual) Eosinophils # (Manual) Basophils # (Manual) PT INR Fibrinogen dRVVT Confirm Interp Factor V Activity POC ABG pH POC ABG pCO2 POC ABG pO2 ABG pO2 ABG HCO3 ABG Base Excess ABG Hemoglobin Oxyhemoglobin Sodium Potassium Chloride 97.9 L Carbon Dioxide BUN 75 H Creatinine 1.6 H Glucose 122 H POC Glucose 149 H 163 H Lactic Acid Calcium Phosphorus 5.20 H Magnesium Direct Bilirubin AST ALT Alkaline Phosphatase Lactate Dehydrogenase Troponin T C-Reactive Protein Total Protein Albumin Prealbumin Triglycerides Cholesterol LDL Cholesterol Direct HDL Cholesterol Urine pH Urine WBC (Auto) Urine Creatinine Urine Total Protein Fluid Total Protein Vancomycin Trough Rheumatoid Factor Complement C4 Miscellaneous Test Crossmatch 12/15/16 12/15/16 12/15/16 05:50 11:24 17:01 WBC RBC Hgb Hct MCV MCH MCHC RDW Plt Count Lymph % (Auto) [place] % (Auto) Lymph # [place] # Baso # Seg Neutrophils % Seg Neuts % (Manual) Lymphocytes % (Manual) Monocytes % (Manual) Eosinophils % (Manual) Basophils % (Manual) Nucleated RBC % Seg Neutrophils # Seg Neutrophils # Man Lymphocytes # (Manual) Monocytes # (Manual) Eosinophils # (Manual) Basophils # (Manual) PT INR Fibrinogen dRVVT Confirm Interp Factor V Activity POC ABG pH POC ABG pCO2 POC ABG pO2 ABG pO2 ABG HCO3 ABG Base Excess ABG Hemoglobin Oxyhemoglobin Sodium Potassium Chloride Carbon Dioxide BUN Creatinine Glucose POC Glucose 150 H 146 H 167 H Lactic Acid Calcium Phosphorus Magnesium Direct Bilirubin AST ALT Alkaline Phosphatase Lactate Dehydrogenase Troponin T C-Reactive Protein Total Protein Albumin Prealbumin Triglycerides Cholesterol LDL Cholesterol Direct HDL Cholesterol Urine pH Urine WBC (Auto) Urine Creatinine Urine Total Protein Fluid Total Protein Vancomycin Trough Rheumatoid Factor Complement C4 Miscellaneous Test Crossmatch 12/15/16 12/16/16 12/16/16 23:34 05:25 11:24 WBC RBC Hgb Hct MCV MCH MCHC RDW Plt Count Lymph % (Auto) [place] % (Auto) Lymph # [place] # Baso # Seg Neutrophils % Seg Neuts % (Manual) Lymphocytes % (Manual) Monocytes % (Manual) Eosinophils % (Manual) Basophils % (Manual) Nucleated RBC % Seg Neutrophils # Seg Neutrophils # Man Lymphocytes # (Manual) Monocytes # (Manual) Eosinophils # (Manual) Basophils # (Manual) PT INR Fibrinogen dRVVT Confirm Interp Factor V Activity POC ABG pH POC ABG pCO2 POC ABG pO2 ABG pO2 ABG HCO3 ABG Base Excess ABG Hemoglobin Oxyhemoglobin Sodium Potassium Chloride Carbon Dioxide BUN Creatinine Glucose POC Glucose 127 H 139 H 165 H Lactic Acid Calcium Phosphorus Magnesium Direct Bilirubin AST ALT Alkaline Phosphatase Lactate Dehydrogenase Troponin T C-Reactive Protein Total Protein Albumin Prealbumin Triglycerides Cholesterol LDL Cholesterol Direct HDL Cholesterol Urine pH Urine WBC (Auto) Urine Creatinine Urine Total Protein Fluid Total Protein Vancomycin Trough Rheumatoid Factor Complement C4 Miscellaneous Test Crossmatch 12/16/16 12/16/16 12/16/16 15:30 16:25 17:31 WBC 17.8 H RBC 2.38 L Hgb 6.4 L Hct 20.3 L MCV MCH 27 L MCHC RDW 17.4 H Plt Count Lymph % (Auto) [place] % (Auto) Lymph # [place] # Baso # Seg Neutrophils % Seg Neuts % (Manual) Lymphocytes % (Manual) Monocytes % (Manual) 10.0 H Eosinophils % (Manual) Basophils % (Manual) Nucleated RBC % Seg Neutrophils # Seg Neutrophils # Man 8.5 H Lymphocytes # (Manual) Monocytes # (Manual) 1.8 H Eosinophils # (Manual) Basophils # (Manual) PT INR Fibrinogen dRVVT Confirm Interp Factor V Activity POC ABG pH POC ABG pCO2 POC ABG pO2 ABG pO2 ABG HCO3 ABG Base Excess ABG Hemoglobin Oxyhemoglobin Sodium Potassium Chloride Carbon Dioxide BUN Creatinine Glucose POC Glucose 176 H Lactic Acid Calcium Phosphorus Magnesium Direct Bilirubin AST ALT Alkaline Phosphatase Lactate Dehydrogenase Troponin T C-Reactive Protein Total Protein Albumin Prealbumin Triglycerides Cholesterol LDL Cholesterol Direct HDL Cholesterol Urine pH Urine WBC (Auto) Urine Creatinine Urine Total Protein Fluid Total Protein Vancomycin Trough Rheumatoid Factor Complement C4 Miscellaneous Test Crossmatch See Detail 12/17/16 12/17/16 12/17/16 00:14 04:00 05:00 WBC 20.0 H RBC 2.99 L Hgb 8.5 L Hct 25.7 L MCV MCH MCHC RDW 17.2 H Plt Count Lymph % (Auto) [place] % (Auto) Lymph # [place] # Baso # Seg Neutrophils % Seg Neuts % (Manual) Lymphocytes % (Manual) Monocytes % (Manual) Eosinophils % (Manual) Basophils % (Manual) Nucleated RBC % Seg Neutrophils # Seg Neutrophils # Man Lymphocytes # (Manual) Monocytes # (Manual) Eosinophils # (Manual) Basophils # (Manual) PT INR Fibrinogen dRVVT Confirm Interp Factor V Activity POC ABG pH POC ABG pCO2 POC ABG pO2 ABG pO2 ABG HCO3 ABG Base Excess ABG Hemoglobin Oxyhemoglobin Sodium Potassium Chloride 97.7 L Carbon Dioxide BUN 73 H Creatinine 1.7 H Glucose 136 H POC Glucose 148 H Lactic Acid Calcium Phosphorus 2.20 L Magnesium 2.70 H Direct Bilirubin AST ALT Alkaline Phosphatase Lactate Dehydrogenase Troponin T C-Reactive Protein Total Protein Albumin Prealbumin Triglycerides Cholesterol LDL Cholesterol Direct HDL Cholesterol Urine pH Urine WBC (Auto) Urine Creatinine Urine Total Protein Fluid Total Protein Vancomycin Trough Rheumatoid Factor Complement C4 Miscellaneous Test Crossmatch 12/17/16 12/17/16 12/17/16 05:39 12:50 16:32 WBC RBC Hgb Hct MCV MCH MCHC RDW Plt Count Lymph % (Auto) [place] % (Auto) Lymph # [place] # Baso # Seg Neutrophils % Seg Neuts % (Manual) Lymphocytes % (Manual) Monocytes % (Manual) Eosinophils % (Manual) Basophils % (Manual) Nucleated RBC % Seg Neutrophils # Seg Neutrophils # Man Lymphocytes # (Manual) Monocytes # (Manual) Eosinophils # (Manual) Basophils # (Manual) PT INR Fibrinogen dRVVT Confirm Interp Factor V Activity POC ABG pH POC ABG pCO2 POC ABG pO2 ABG pO2 ABG HCO3 ABG Base Excess ABG Hemoglobin Oxyhemoglobin Sodium Potassium Chloride Carbon Dioxide BUN Creatinine Glucose POC Glucose 162 H 146 H 169 H Lactic Acid Calcium Phosphorus Magnesium Direct Bilirubin AST ALT Alkaline Phosphatase Lactate Dehydrogenase Troponin T C-Reactive Protein Total Protein Albumin Prealbumin Triglycerides Cholesterol LDL Cholesterol Direct HDL Cholesterol Urine pH Urine WBC (Auto) Urine Creatinine Urine Total Protein Fluid Total Protein Vancomycin Trough Rheumatoid Factor Complement C4 Miscellaneous Test Crossmatch 12/17/16 12/18/16 12/18/16 23:57 05:00 05:32 WBC RBC Hgb Hct MCV MCH MCHC RDW Plt Count Lymph % (Auto) [place] % (Auto) Lymph # [place] # Baso # Seg Neutrophils % Seg Neuts % (Manual) Lymphocytes % (Manual) Monocytes % (Manual) Eosinophils % (Manual) Basophils % (Manual) Nucleated RBC % Seg Neutrophils # Seg Neutrophils # Man Lymphocytes # (Manual) Monocytes # (Manual) Eosinophils # (Manual) Basophils # (Manual) PT INR Fibrinogen dRVVT Confirm Interp Factor V Activity POC ABG pH POC ABG pCO2 POC ABG pO2 ABG pO2 ABG HCO3 ABG Base Excess ABG Hemoglobin Oxyhemoglobin Sodium Potassium Chloride 97.0 L Carbon Dioxide BUN 63 H Creatinine 1.4 H Glucose 174 H POC Glucose 145 H 201 H Lactic Acid Calcium Phosphorus 1.70 L D Magnesium Direct Bilirubin AST ALT Alkaline Phosphatase 257 H Lactate Dehydrogenase Troponin T C-Reactive Protein Total Protein 5.9 L Albumin 1.8 L Prealbumin Triglycerides Cholesterol LDL Cholesterol Direct HDL Cholesterol Urine pH Urine WBC (Auto) Urine Creatinine Urine Total Protein Fluid Total Protein Vancomycin Trough Rheumatoid Factor Complement C4 Miscellaneous Test Crossmatch 12/18/16 12/18/16 12/18/16 11:43 16:52 23:52 WBC RBC Hgb Hct MCV MCH MCHC RDW Plt Count Lymph % (Auto) [place] % (Auto) Lymph # [place] # Baso # Seg Neutrophils % Seg Neuts % (Manual) Lymphocytes % (Manual) Monocytes % (Manual) Eosinophils % (Manual) Basophils % (Manual) Nucleated RBC % Seg Neutrophils # Seg Neutrophils # Man Lymphocytes # (Manual) Monocytes # (Manual) Eosinophils # (Manual) Basophils # (Manual) PT INR Fibrinogen dRVVT Confirm Interp Factor V Activity POC ABG pH POC ABG pCO2 POC ABG pO2 ABG pO2 ABG HCO3 ABG Base Excess ABG Hemoglobin Oxyhemoglobin Sodium Potassium Chloride Carbon Dioxide BUN Creatinine Glucose POC Glucose 177 H 110 H 162 H Lactic Acid Calcium Phosphorus Magnesium Direct Bilirubin AST ALT Alkaline Phosphatase Lactate Dehydrogenase Troponin T C-Reactive Protein Total Protein Albumin Prealbumin Triglycerides Cholesterol LDL Cholesterol Direct HDL Cholesterol Urine pH Urine WBC (Auto) Urine Creatinine Urine Total Protein Fluid Total Protein Vancomycin Trough Rheumatoid Factor Complement C4 Miscellaneous Test Crossmatch 12/19/16 12/19/1617 05:02 05:24 09:30 WBC 20.1 H RBC 2.73 L Hgb 7.6 L Hct 23.6 L MCV MCH MCHC RDW 17.6 H Plt Count Lymph % (Auto) [place] % (Auto) Lymph # [place] # Baso # Seg Neutrophils % Seg Neuts % (Manual) Lymphocytes % (Manual) 13.0 L Monocytes % (Manual) Eosinophils % (Manual) Basophils % (Manual) Nucleated RBC % 1.0 H Seg Neutrophils # Seg Neutrophils # Man 12.9 H Lymphocytes # (Manual) Monocytes # (Manual) 1.4 H Eosinophils # (Manual) Basophils # (Manual) 0.2 H PT INR Fibrinogen dRVVT Confirm Interp Factor V Activity POC ABG pH POC ABG pCO2 POC ABG pO2 ABG pO2 ABG HCO3 ABG Base Excess ABG Hemoglobin Oxyhemoglobin Sodium Potassium Chloride 97.8 L Carbon Dioxide BUN 84 H Creatinine 1.6 H Glucose 133 H POC Glucose 134 H Lactic Acid Calcium Phosphorus Magnesium Direct Bilirubin AST ALT Alkaline Phosphatase Lactate Dehydrogenase Troponin T C-Reactive Protein Total Protein Albumin Prealbumin Triglycerides Cholesterol LDL Cholesterol Direct HDL Cholesterol Urine pH Urine WBC (Auto) Urine Creatinine Urine Total Protein Fluid Total Protein Vancomycin Trough Rheumatoid Factor Complement C4 Miscellaneous Test Crossmatch 12/19/16 12/19/16 12/19/16 09:36 11:12 18:29 WBC RBC Hgb Hct MCV MCH MCHC RDW Plt Count Lymph % (Auto) [place] % (Auto) Lymph # [place] # Baso # Seg Neutrophils % Seg Neuts % (Manual) Lymphocytes % (Manual) Monocytes % (Manual) Eosinophils % (Manual) Basophils % (Manual) Nucleated RBC % Seg Neutrophils # Seg Neutrophils # Man Lymphocytes # (Manual) Monocytes # (Manual) Eosinophils # (Manual) Basophils # (Manual) PT INR Fibrinogen dRVVT Confirm Interp Factor V Activity POC ABG pH 7.503 H POC ABG pCO2 30.1 L POC ABG pO2 ABG pO2 ABG HCO3 ABG Base Excess ABG Hemoglobin Oxyhemoglobin Sodium Potassium Chloride Carbon Dioxide BUN Creatinine Glucose POC Glucose 138 H 156 H Lactic Acid Calcium Phosphorus Magnesium Direct Bilirubin AST ALT Alkaline Phosphatase Lactate Dehydrogenase Troponin T C-Reactive Protein Total Protein Albumin Prealbumin Triglycerides Cholesterol LDL Cholesterol Direct HDL Cholesterol Urine pH Urine WBC (Auto) Urine Creatinine Urine Total Protein Fluid Total Protein Vancomycin Trough Rheumatoid Factor Complement C4 Miscellaneous Test Crossmatch 12/20/16 12/20/16 12/20/16 00:03 06:17 07:07 WBC RBC Hgb Hct MCV MCH MCHC RDW Plt Count Lymph % (Auto) [place] % (Auto) Lymph # [place] # Baso # Seg Neutrophils % Seg Neuts % (Manual) Lymphocytes % (Manual) Monocytes % (Manual) Eosinophils % (Manual) Basophils % (Manual) Nucleated RBC % Seg Neutrophils # Seg Neutrophils # Man Lymphocytes # (Manual) Monocytes # (Manual) Eosinophils # (Manual) Basophils # (Manual) PT INR Fibrinogen dRVVT Confirm Interp Factor V Activity POC ABG pH POC ABG pCO2 POC ABG pO2 ABG pO2 ABG HCO3 ABG Base Excess ABG Hemoglobin Oxyhemoglobin Sodium Potassium Chloride 97.1 L Carbon Dioxide 20 L BUN 97 H Creatinine 1.8 H Glucose 153 H POC Glucose 152 H 175 H Lactic Acid Calcium Phosphorus Magnesium Direct Bilirubin AST ALT Alkaline Phosphatase Lactate Dehydrogenase Troponin T C-Reactive Protein Total Protein Albumin Prealbumin Triglycerides Cholesterol LDL Cholesterol Direct HDL Cholesterol Urine pH Urine WBC (Auto) Urine Creatinine Urine Total Protein Fluid Total Protein Vancomycin Trough Rheumatoid Factor Complement C4 Miscellaneous Test Crossmatch 12/20/16 12/20/16 12/20/16 12:00 17:42 23:53 WBC RBC Hgb Hct MCV MCH MCHC RDW Plt Count Lymph % (Auto) [place] % (Auto) Lymph # [place] # Baso # Seg Neutrophils % Seg Neuts % (Manual) Lymphocytes % (Manual) Monocytes % (Manual) Eosinophils % (Manual) Basophils % (Manual) Nucleated RBC % Seg Neutrophils # Seg Neutrophils # Man Lymphocytes # (Manual) Monocytes # (Manual) Eosinophils # (Manual) Basophils # (Manual) PT INR Fibrinogen dRVVT Confirm Interp Factor V Activity POC ABG pH POC ABG pCO2 POC ABG pO2 ABG pO2 ABG HCO3 ABG Base Excess ABG Hemoglobin Oxyhemoglobin Sodium Potassium Chloride Carbon Dioxide BUN Creatinine Glucose POC Glucose 141 H 156 H 132 H Lactic Acid Calcium Phosphorus Magnesium Direct Bilirubin AST ALT Alkaline Phosphatase Lactate Dehydrogenase Troponin T C-Reactive Protein Total Protein Albumin Prealbumin Triglycerides Cholesterol LDL Cholesterol Direct HDL Cholesterol Urine pH Urine WBC (Auto) Urine Creatinine Urine Total Protein Fluid Total Protein Vancomycin Trough Rheumatoid Factor Complement C4 Miscellaneous Test Crossmatch 12/21/16 12/21/16 12/21/16 05:49 08:50 12:19 WBC RBC Hgb Hct MCV MCH MCHC RDW Plt Count Lymph % (Auto) [place] % (Auto) Lymph # [place] # Baso # Seg Neutrophils % Seg Neuts % (Manual) Lymphocytes % (Manual) Monocytes % (Manual) Eosinophils % (Manual) Basophils % (Manual) Nucleated RBC % Seg Neutrophils # Seg Neutrophils # Man Lymphocytes # (Manual) Monocytes # (Manual) Eosinophils # (Manual) Basophils # (Manual) PT INR Fibrinogen dRVVT Confirm Interp Factor V Activity POC ABG pH POC ABG pCO2 POC ABG pO2 ABG pO2 ABG HCO3 ABG Base Excess ABG Hemoglobin Oxyhemoglobin Sodium Potassium 5.2 H D Chloride Carbon Dioxide BUN 63 H Creatinine Glucose 122 H POC Glucose 132 H 136 H Lactic Acid Calcium 8.3 L Phosphorus Magnesium Direct Bilirubin AST ALT Alkaline Phosphatase Lactate Dehydrogenase Troponin T C-Reactive Protein Total Protein Albumin Prealbumin Triglycerides Cholesterol LDL Cholesterol Direct HDL Cholesterol Urine pH Urine WBC (Auto) Urine Creatinine Urine Total Protein Fluid Total Protein Vancomycin Trough Rheumatoid Factor Complement C4 Miscellaneous Test Crossmatch 12/21/16 12/21/16 12/22/16 17:22 23:58 05:49 WBC RBC Hgb Hct MCV MCH MCHC RDW Plt Count Lymph % (Auto) [place] % (Auto) Lymph # [place] # Baso # Seg Neutrophils % Seg Neuts % (Manual) Lymphocytes % (Manual) Monocytes % (Manual) Eosinophils % (Manual) Basophils % (Manual) Nucleated RBC % Seg Neutrophils # Seg Neutrophils # Man Lymphocytes # (Manual) Monocytes # (Manual) Eosinophils # (Manual) Basophils # (Manual) PT INR Fibrinogen dRVVT Confirm Interp Factor V Activity POC ABG pH POC ABG pCO2 POC ABG pO2 ABG pO2 ABG HCO3 ABG Base Excess ABG Hemoglobin Oxyhemoglobin Sodium Potassium Chloride Carbon Dioxide BUN Creatinine Glucose POC Glucose 135 H 149 H 140 H Lactic Acid Calcium Phosphorus Magnesium Direct Bilirubin AST ALT Alkaline Phosphatase Lactate Dehydrogenase Troponin T C-Reactive Protein Total Protein Albumin Prealbumin Triglycerides Cholesterol LDL Cholesterol Direct HDL Cholesterol Urine pH Urine WBC (Auto) Urine Creatinine Urine Total Protein Fluid Total Protein Vancomycin Trough Rheumatoid Factor Complement C4 Miscellaneous Test Crossmatch 12/22/16 12/22/16 12/22/16 06:10 11:17 17:31 WBC RBC Hgb Hct MCV MCH MCHC RDW Plt Count Lymph % (Auto) [place] % (Auto) Lymph # [place] # Baso # Seg Neutrophils % Seg Neuts % (Manual) Lymphocytes % (Manual) Monocytes % (Manual) Eosinophils % (Manual) Basophils % (Manual) Nucleated RBC % Seg Neutrophils # Seg Neutrophils # Man Lymphocytes # (Manual) Monocytes # (Manual) Eosinophils # (Manual) Basophils # (Manual) PT INR Fibrinogen dRVVT Confirm Interp Factor V Activity POC ABG pH POC ABG pCO2 POC ABG pO2 ABG pO2 ABG HCO3 ABG Base Excess ABG Hemoglobin Oxyhemoglobin Sodium Potassium Chloride Carbon Dioxide BUN 76 H Creatinine 1.5 H Glucose 241 H POC Glucose 193 H 148 H Lactic Acid Calcium Phosphorus Magnesium Direct Bilirubin AST ALT Alkaline Phosphatase Lactate Dehydrogenase Troponin T C-Reactive Protein Total Protein Albumin Prealbumin Triglycerides Cholesterol LDL Cholesterol Direct HDL Cholesterol Urine pH Urine WBC (Auto) Urine Creatinine Urine Total Protein Fluid Total Protein Vancomycin Trough Rheumatoid Factor Complement C4 Miscellaneous Test Crossmatch 12/22/16 12/23/16 12/23/16 23:58 05:00 05:26 WBC RBC Hgb Hct MCV MCH MCHC RDW Plt Count Lymph % (Auto) [place] % (Auto) Lymph # [place] # Baso # Seg Neutrophils % Seg Neuts % (Manual) Lymphocytes % (Manual) Monocytes % (Manual) Eosinophils % (Manual) Basophils % (Manual) Nucleated RBC % Seg Neutrophils # Seg Neutrophils # Man Lymphocytes # (Manual) Monocytes # (Manual) Eosinophils # (Manual) Basophils # (Manual) PT INR Fibrinogen dRVVT Confirm Interp Factor V Activity POC ABG pH POC ABG pCO2 POC ABG pO2 ABG pO2 ABG HCO3 ABG Base Excess ABG Hemoglobin Oxyhemoglobin Sodium Potassium Chloride Carbon Dioxide BUN 49 H Creatinine Glucose 143 H POC Glucose 165 H 154 H Lactic Acid Calcium 8.2 L Phosphorus Magnesium 1.60 L Direct Bilirubin AST ALT Alkaline Phosphatase Lactate Dehydrogenase Troponin T C-Reactive Protein Total Protein Albumin Prealbumin Triglycerides Cholesterol LDL Cholesterol Direct HDL Cholesterol Urine pH Urine WBC (Auto) Urine Creatinine Urine Total Protein Fluid Total Protein Vancomycin Trough Rheumatoid Factor Complement C4 Miscellaneous Test Crossmatch 12/23/16 12/23/16 12/24/16 12:35 17:01 00:01 WBC RBC Hgb Hct MCV MCH MCHC RDW Plt Count Lymph % (Auto) [place] % (Auto) Lymph # [place] # Baso # Seg Neutrophils % Seg Neuts % (Manual) Lymphocytes % (Manual) Monocytes % (Manual) Eosinophils % (Manual) Basophils % (Manual) Nucleated RBC % Seg Neutrophils # Seg Neutrophils # Man Lymphocytes # (Manual) Monocytes # (Manual) Eosinophils # (Manual) Basophils # (Manual) PT INR Fibrinogen dRVVT Confirm Interp Factor V Activity POC ABG pH POC ABG pCO2 POC ABG pO2 ABG pO2 ABG HCO3 ABG Base Excess ABG Hemoglobin Oxyhemoglobin Sodium Potassium Chloride Carbon Dioxide BUN Creatinine Glucose POC Glucose 164 H 149 H 135 H Lactic Acid Calcium Phosphorus Magnesium Direct Bilirubin AST ALT Alkaline Phosphatase Lactate Dehydrogenase Troponin T C-Reactive Protein Total Protein Albumin Prealbumin Triglycerides Cholesterol LDL Cholesterol Direct HDL Cholesterol Urine pH Urine WBC (Auto) Urine Creatinine Urine Total Protein Fluid Total Protein Vancomycin Trough Rheumatoid Factor Complement C4 Miscellaneous Test Crossmatch 12/24/16 12/24/16 12/24/16 05:41 07:01 11:38 WBC RBC Hgb Hct MCV MCH MCHC RDW Plt Count Lymph % (Auto) [place] % (Auto) Lymph # [place] # Baso # Seg Neutrophils % Seg Neuts % (Manual) Lymphocytes % (Manual) Monocytes % (Manual) Eosinophils % (Manual) Basophils % (Manual) Nucleated RBC % Seg Neutrophils # Seg Neutrophils # Man Lymphocytes # (Manual) Monocytes # (Manual) Eosinophils # (Manual) Basophils # (Manual) PT INR Fibrinogen dRVVT Confirm Interp Factor V Activity POC ABG pH POC ABG pCO2 POC ABG pO2 ABG pO2 ABG HCO3 ABG Base Excess ABG Hemoglobin Oxyhemoglobin Sodium Potassium Chloride Carbon Dioxide BUN 72 H Creatinine 1.3 H Glucose 130 H POC Glucose 132 H 156 H Lactic Acid Calcium 8.2 L Phosphorus Magnesium Direct Bilirubin AST ALT Alkaline Phosphatase Lactate Dehydrogenase Troponin T C-Reactive Protein Total Protein Albumin Prealbumin Triglycerides Cholesterol LDL Cholesterol Direct HDL Cholesterol Urine pH Urine WBC (Auto) Urine Creatinine Urine Total Protein Fluid Total Protein Vancomycin Trough Rheumatoid Factor Complement C4 Miscellaneous Test Crossmatch 12/24/16 12/25/16 12/25/16 17:53 00:23 05:45 WBC RBC Hgb Hct MCV MCH MCHC RDW Plt Count Lymph % (Auto) [place] % (Auto) Lymph # [place] # Baso # Seg Neutrophils % Seg Neuts % (Manual) Lymphocytes % (Manual) Monocytes % (Manual) Eosinophils % (Manual) Basophils % (Manual) Nucleated RBC % Seg Neutrophils # Seg Neutrophils # Man Lymphocytes # (Manual) Monocytes # (Manual) Eosinophils # (Manual) Basophils # (Manual) PT INR Fibrinogen dRVVT Confirm Interp Factor V Activity POC ABG pH POC ABG pCO2 POC ABG pO2 ABG pO2 ABG HCO3 ABG Base Excess ABG Hemoglobin Oxyhemoglobin Sodium 146 H Potassium Chloride Carbon Dioxide BUN 51 H Creatinine Glucose 109 H POC Glucose 169 H 117 H Lactic Acid Calcium Phosphorus Magnesium Direct Bilirubin AST ALT Alkaline Phosphatase Lactate Dehydrogenase Troponin T C-Reactive Protein Total Protein Albumin Prealbumin Triglycerides Cholesterol LDL Cholesterol Direct HDL Cholesterol Urine pH Urine WBC (Auto) Urine Creatinine Urine Total Protein Fluid Total Protein Vancomycin Trough Rheumatoid Factor Complement C4 Miscellaneous Test Crossmatch 12/25/16 12/25/16 12/25/16 06:43 11:29 17:14 WBC RBC Hgb Hct MCV MCH MCHC RDW Plt Count Lymph % (Auto) [place] % (Auto) Lymph # [place] # Baso # Seg Neutrophils % Seg Neuts % (Manual) Lymphocytes % (Manual) Monocytes % (Manual) Eosinophils % (Manual) Basophils % (Manual) Nucleated RBC % Seg Neutrophils # Seg Neutrophils # Man Lymphocytes # (Manual) Monocytes # (Manual) Eosinophils # (Manual) Basophils # (Manual) PT INR Fibrinogen dRVVT Confirm Interp Factor V Activity POC ABG pH POC ABG pCO2 POC ABG pO2 ABG pO2 ABG HCO3 ABG Base Excess ABG Hemoglobin Oxyhemoglobin Sodium Potassium Chloride Carbon Dioxide BUN Creatinine Glucose POC Glucose 117 H 128 H 120 H Lactic Acid Calcium Phosphorus Magnesium Direct Bilirubin AST ALT Alkaline Phosphatase Lactate Dehydrogenase Troponin T C-Reactive Protein Total Protein Albumin Prealbumin Triglycerides Cholesterol LDL Cholesterol Direct HDL Cholesterol Urine pH Urine WBC (Auto) Urine Creatinine Urine Total Protein Fluid Total Protein Vancomycin Trough Rheumatoid Factor Complement C4 Miscellaneous Test Crossmatch 12/25/16 12/26/16 12/26/16 23:54 05:40 05:50 WBC 16.2 H RBC 2.32 L Hgb 6.2 L Hct 20.1 L MCV MCH 27 L MCHC RDW 18.6 H Plt Count Lymph % (Auto) [place] % (Auto) Lymph # [place] # Baso # Seg Neutrophils % Seg Neuts % (Manual) Lymphocytes % (Manual) Monocytes % (Manual) Eosinophils % (Manual) Basophils % (Manual) Nucleated RBC % Seg Neutrophils # Seg Neutrophils # Man Lymphocytes # (Manual) Monocytes # (Manual) Eosinophils # (Manual) Basophils # (Manual) PT INR Fibrinogen dRVVT Confirm Interp Factor V Activity POC ABG pH POC ABG pCO2 POC ABG pO2 ABG pO2 ABG HCO3 ABG Base Excess ABG Hemoglobin Oxyhemoglobin Sodium Potassium Chloride Carbon Dioxide BUN Creatinine Glucose POC Glucose 126 H 132 H Lactic Acid Calcium Phosphorus Magnesium Direct Bilirubin AST ALT Alkaline Phosphatase Lactate Dehydrogenase Troponin T C-Reactive Protein Total Protein Albumin Prealbumin Triglycerides Cholesterol LDL Cholesterol Direct HDL Cholesterol Urine pH Urine WBC (Auto) Urine Creatinine Urine Total Protein Fluid Total Protein Vancomycin Trough Rheumatoid Factor Complement C4 Miscellaneous Test Crossmatch 12/26/16 12/26/16 12/26/16 05:50 12:17 12:33 WBC RBC Hgb Hct MCV MCH MCHC RDW Plt Count Lymph % (Auto) [place] % (Auto) Lymph # [place] # Baso # Seg Neutrophils % Seg Neuts % (Manual) Lymphocytes % (Manual) Monocytes % (Manual) Eosinophils % (Manual) Basophils % (Manual) Nucleated RBC % Seg Neutrophils # Seg Neutrophils # Man Lymphocytes # (Manual) Monocytes # (Manual) Eosinophils # (Manual) Basophils # (Manual) PT INR Fibrinogen dRVVT Confirm Interp Factor V Activity POC ABG pH POC ABG pCO2 POC ABG pO2 ABG pO2 ABG HCO3 ABG Base Excess ABG Hemoglobin Oxyhemoglobin Sodium Potassium Chloride Carbon Dioxide BUN 73 H Creatinine 1.3 H Glucose 113 H POC Glucose 117 H Lactic Acid Calcium Phosphorus Magnesium Direct Bilirubin AST ALT Alkaline Phosphatase Lactate Dehydrogenase Troponin T C-Reactive Protein Total Protein Albumin Prealbumin Triglycerides Cholesterol LDL Cholesterol Direct HDL Cholesterol Urine pH Urine WBC (Auto) Urine Creatinine Urine Total Protein Fluid Total Protein Vancomycin Trough Rheumatoid Factor Complement C4 Miscellaneous Test Crossmatch See Detail 12/26/16 12/26/16 12/27/16 20:00 23:21 05:00 WBC RBC Hgb 8.4 L Hct 26.3 L D MCV MCH MCHC RDW Plt Count Lymph % (Auto) [place] % (Auto) Lymph # [place] # Baso # Seg Neutrophils % Seg Neuts % (Manual) Lymphocytes % (Manual) Monocytes % (Manual) Eosinophils % (Manual) Basophils % (Manual) Nucleated RBC % Seg Neutrophils # Seg Neutrophils # Man Lymphocytes # (Manual) Monocytes # (Manual) Eosinophils # (Manual) Basophils # (Manual) PT INR Fibrinogen dRVVT Confirm Interp Factor V Activity POC ABG pH POC ABG pCO2 POC ABG pO2 ABG pO2 ABG HCO3 ABG Base Excess ABG Hemoglobin Oxyhemoglobin Sodium Potassium Chloride Carbon Dioxide BUN 85 H Creatinine 1.6 H Glucose 118 H POC Glucose 124 H Lactic Acid Calcium Phosphorus 4.80 H Magnesium Direct Bilirubin AST ALT Alkaline Phosphatase Lactate Dehydrogenase Troponin T C-Reactive Protein Total Protein Albumin Prealbumin Triglycerides Cholesterol LDL Cholesterol Direct HDL Cholesterol Urine pH Urine WBC (Auto) Urine Creatinine Urine Total Protein Fluid Total Protein Vancomycin Trough Rheumatoid Factor Complement C4 Miscellaneous Test Crossmatch 12/27/16 12/27/16 05:00 05:35 WBC RBC Hgb 7.6 L Hct 22.8 L MCV MCH MCHC RDW Plt Count Lymph % (Auto) [place] % (Auto) Lymph # [place] # Baso # Seg Neutrophils % Seg Neuts % (Manual) Lymphocytes % (Manual) Monocytes % (Manual) Eosinophils % (Manual) Basophils % (Manual) Nucleated RBC % Seg Neutrophils # Seg Neutrophils # Man Lymphocytes # (Manual) Monocytes # (Manual) Eosinophils # (Manual) Basophils # (Manual) PT INR Fibrinogen dRVVT Confirm Interp Factor V Activity POC ABG pH POC ABG pCO2 POC ABG pO2 ABG pO2 ABG HCO3 ABG Base Excess ABG Hemoglobin Oxyhemoglobin Sodium Potassium Chloride Carbon Dioxide BUN Creatinine Glucose POC Glucose 115 H Lactic Acid Calcium Phosphorus Magnesium Direct Bilirubin AST ALT Alkaline Phosphatase Lactate Dehydrogenase Troponin T C-Reactive Protein Total Protein Albumin Prealbumin Triglycerides Cholesterol LDL Cholesterol Direct HDL Cholesterol Urine pH Urine WBC (Auto) Urine Creatinine Urine Total Protein Fluid Total Protein Vancomycin Trough Rheumatoid Factor Complement C4 Miscellaneous Test Crossmatch Allied health notes reviewed: RT
--- NOTE | 2016-12-27 09:47 | Progress Note ---
Assessment and Plan - Patient Problems (1) JUANITA (acute kidney injury) Current Visit: Yes Status: Acute Plan to address problem: HD today. Continue present meds. 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 on ventilator via trach. Fio2-45% Objective - Vital Signs Vital signs: Vital Signs - 12hr 12/26/16 12/26/16 12/26/16 22:00 22:04 22:15 Temperature Pulse Rate 108 H 108 H 112 H Pulse Rate [ Anterior Bilateral Throughout] Pulse Rate [ From Monitor] Respiratory 21 13 Rate Respiratory Rate [Anterior Bilateral Throughout] Blood Pressure 135/78 135/78 O2 Sat by Pulse 98 99 Oximetry O2 Sat by Pulse Oximetry [ Assessment] 12/26/16 12/26/16 12/26/16 22:31 22:45 23:00 Temperature 99.9 F H Pulse Rate 110 H 109 H Pulse Rate [ Anterior Bilateral Throughout] Pulse Rate [ From Monitor] Respiratory 14 16 Rate Respiratory Rate [Anterior Bilateral Throughout] Blood Pressure 135/78 135/78 O2 Sat by Pulse 99 99 Oximetry O2 Sat by Pulse Oximetry [ Assessment] 12/26/16 12/26/16 12/26/16 23:01 23:15 23:23 Temperature Pulse Rate 109 H 108 H Pulse Rate [ Anterior Bilateral Throughout] Pulse Rate [ From Monitor] Respiratory 12 13 Rate Respiratory Rate [Anterior Bilateral Throughout] Blood Pressure 135/78 135/78 135/78 O2 Sat by Pulse 98 98 99 Oximetry O2 Sat by Pulse Oximetry [ Assessment] 12/26/16 12/26/16 12/26/16 23:28 23:31 23:37 Temperature Pulse Rate 108 H 109 H Pulse Rate [ Anterior Bilateral Throughout] Pulse Rate [ From Monitor] Respiratory 22 18 Rate Respiratory Rate [Anterior Bilateral Throughout] Blood Pressure 135/78 135/78 O2 Sat by Pulse 99 99 Oximetry O2 Sat by Pulse 97 Oximetry [ Assessment] 12/26/16 12/27/16 12/27/16 23:45 00:00 00:15 Temperature Pulse Rate 108 H 106 H 108 H Pulse Rate [ Anterior Bilateral Throughout] Pulse Rate [ From Monitor] Respiratory 18 19 23 Rate Respiratory Rate [Anterior Bilateral Throughout] Blood Pressure 135/78 120/70 120/70 O2 Sat by Pulse 99 99 99 Oximetry O2 Sat by Pulse Oximetry [ Assessment] 12/27/16 12/27/16 12/27/16 00:31 00:45 01:01 Temperature Pulse Rate 109 H 109 H 113 H Pulse Rate [ Anterior Bilateral Throughout] Pulse Rate [ From Monitor] Respiratory 22 21 21 Rate Respiratory Rate [Anterior Bilateral Throughout] Blood Pressure 120/70 120/70 120/70 O2 Sat by Pulse 99 99 99 Oximetry O2 Sat by Pulse Oximetry [ Assessment] 12/27/16 12/27/16 12/27/16 01:15 01:31 01:45 Temperature Pulse Rate 110 H 111 H 114 H Pulse Rate [ Anterior Bilateral Throughout] Pulse Rate [ From Monitor] Respiratory 22 22 23 Rate Respiratory Rate [Anterior Bilateral Throughout] Blood Pressure 120/70 120/70 120/70 O2 Sat by Pulse 99 99 99 Oximetry O2 Sat by Pulse Oximetry [ Assessment] 12/27/16 12/27/16 12/27/16 02:00 02:15 02:30 Temperature Pulse Rate 113 H 114 H 110 H Pulse Rate [ 111 H Anterior Bilateral Throughout] Pulse Rate [ From Monitor] Respiratory 22 22 22 Rate Respiratory 21 Rate [Anterior Bilateral Throughout] Blood Pressure 118/72 118/72 118/72 O2 Sat by Pulse 99 99 98 Oximetry O2 Sat by Pulse Oximetry [ Assessment] 12/27/16 12/27/16 12/27/16 02:45 03:01 03:11 Temperature 101.3 F H Pulse Rate 116 H 117 H Pulse Rate [ Anterior Bilateral Throughout] Pulse Rate [ From Monitor] Respiratory 30 H 26 H Rate Respiratory Rate [Anterior Bilateral Throughout] Blood Pressure 118/72 118/72 O2 Sat by Pulse 87 87 Oximetry O2 Sat by Pulse Oximetry [ Assessment] 12/27/16 12/27/16 12/27/16 03:15 03:31 03:45 Temperature Pulse Rate 117 H 118 H 114 H Pulse Rate [ Anterior Bilateral Throughout] Pulse Rate [ From Monitor] Respiratory 25 H 25 H 26 H Rate Respiratory Rate [Anterior Bilateral Throughout] Blood Pressure 118/72 118/72 118/72 O2 Sat by Pulse 88 91 92 Oximetry O2 Sat by Pulse Oximetry [ Assessment] 12/27/16 12/27/16 12/27/16 04:00 04:14 04:15 Temperature Pulse Rate 115 H 112 H Pulse Rate [ Anterior Bilateral Throughout] Pulse Rate [ 116 H From Monitor] Respiratory 24 24 24 Rate Respiratory Rate [Anterior Bilateral Throughout] Blood Pressure 109/58 109/58 O2 Sat by Pulse 95 95 95 Oximetry O2 Sat by Pulse Oximetry [ Assessment] 12/27/16 12/27/16 12/27/16 04:31 04:45 05:01 Temperature Pulse Rate 114 H 115 H 119 H Pulse Rate [ Anterior Bilateral Throughout] Pulse Rate [ From Monitor] Respiratory 23 25 H 25 H Rate Respiratory Rate [Anterior Bilateral Throughout] Blood Pressure 109/58 109/58 109/58 O2 Sat by Pulse 96 97 97 Oximetry O2 Sat by Pulse Oximetry [ Assessment] 12/27/16 12/27/16 12/27/16 05:15 05:31 05:45 Temperature Pulse Rate 115 H 116 H 117 H Pulse Rate [ Anterior Bilateral Throughout] Pulse Rate [ From Monitor] Respiratory 24 24 24 Rate Respiratory Rate [Anterior Bilateral Throughout] Blood Pressure 109/58 109/58 109/58 O2 Sat by Pulse 97 97 96 Oximetry O2 Sat by Pulse Oximetry [ Assessment] 12/27/16 12/27/16 12/27/16 05:47 06:00 06:15 Temperature Pulse Rate 114 H 114 H 114 H Pulse Rate [ Anterior Bilateral Throughout] Pulse Rate [ From Monitor] Respiratory 23 23 Rate Respiratory Rate [Anterior Bilateral Throughout] Blood Pressure 109/58 122/67 122/67 O2 Sat by Pulse 96 98 97 Oximetry O2 Sat by Pulse Oximetry [ Assessment] 12/27/16 12/27/16 12/27/16 06:31 06:38 06:40 Temperature Pulse Rate 113 H 106 H 111 H Pulse Rate [ Anterior Bilateral Throughout] Pulse Rate [ From Monitor] Respiratory 23 Rate Respiratory Rate [Anterior Bilateral Throughout] Blood Pressure 122/67 120/70 122/67 O2 Sat by Pulse 97 Oximetry O2 Sat by Pulse Oximetry [ Assessment] 12/27/16 12/27/16 12/27/16 06:41 06:45 07:01 Temperature Pulse Rate 111 H 114 H 117 H Pulse Rate [ Anterior Bilateral Throughout] Pulse Rate [ From Monitor] Respiratory 24 23 Rate Respiratory Rate [Anterior Bilateral Throughout] Blood Pressure 122/67 122/67 122/67 O2 Sat by Pulse 98 98 Oximetry O2 Sat by Pulse Oximetry [ Assessment] 12/27/16 12/27/16 12/27/16 07:15 07:31 07:45 Temperature Pulse Rate 115 H 115 H 113 H Pulse Rate [ Anterior Bilateral Throughout] Pulse Rate [ From Monitor] Respiratory 23 23 23 Rate Respiratory Rate [Anterior Bilateral Throughout] Blood Pressure 122/67 122/67 122/67 O2 Sat by Pulse 98 98 98 Oximetry O2 Sat by Pulse Oximetry [ Assessment] 12/27/16 12/27/16 12/27/16 08:00 08:07 08:13 Temperature 99 F Pulse Rate 115 H 116 H Pulse Rate [ 117 H Anterior Bilateral Throughout] Pulse Rate [ From Monitor] Respiratory 22 Rate Respiratory 21 Rate [Anterior Bilateral Throughout] Blood Pressure 128/73 128/73 O2 Sat by Pulse 99 99 Oximetry O2 Sat by Pulse Oximetry [ Assessment] 12/27/16 08:36 Temperature Pulse Rate Pulse Rate [ 122 H Anterior Bilateral Throughout] Pulse Rate [ From Monitor] Respiratory Rate Respiratory 27 H Rate [Anterior Bilateral Throughout] Blood Pressure O2 Sat by Pulse Oximetry O2 Sat by Pulse Oximetry [ Assessment] - General Appearance General appearance: sedated on ventilator EENT: mucous membranes dry Neck: no JVD Respiratory: Present: Decreased Breath Sounds Cardiology: irregular Gastrointestinal: normoactive bowel sounds Neurologic: other (staring, but not following commands) - Lab 12/27/16 05:00 12/27/16 05:00 Most recent lab results ABG pH 7.450 pH Units (7.350-7.450) 12/05/16 Unknown ABG pCO2 29.6 mm Hg 12/05/16 Unknown ABG pO2 75.2 mm Hg (80.0-90.0) L 12/05/16 Unknown ABG HCO3 20.1 mmol/L (20.0-26.0) 12/05/16 Unknown ABG O2 Saturation 96.8 % (95.0-99.0) 12/05/16 Unknown Calcium 9.5 mg/dL (8.4-10.2) 12/27/16 05:00 Phosphorus 4.80 mg/dL (2.5-4.5) H 12/27/16 05:00 Magnesium 2.00 mg/dL (1.7-2.3) 12/27/16 05:00 Urine Creatinine 19.7 mg/dL (0.1-20.0) 11/12/16 10:18 Urine Sodium 36 mEq/L 09/16/16 19:19 Urine Total Protein 16 mg/dL (5-11.8) H 09/16/16 19:19
[2016-12-27] MEDS: HEPARIN SUB-Q SCH ×2 (10:13→22:46)
[2016-12-27] MEDS: PROTONIX FEEDTUBE SCH (10:13)
[2016-12-27] MEDS: ROBINUL PO SCH ×3 (10:14→22:45)
[2016-12-27] MEDS: NORVASC PO SCH (10:14)
[2016-12-27] MEDS: CORDARONE PO SCH ×2 (10:14→22:45)
[2016-12-27] MEDS ORDERED: NACL 0.9% 100 ML IV PRN (10:50)
[2016-12-27] MEDS: DAKIN'S HALF STRENGTH TP SCH ×2 (13:00→22:48)
[2016-12-27] MEDS: PROCRIT IV PRN (13:17)
--- NOTE | 2016-12-27 13:30 | Consultation ---
History of Present Illness Consult date: 12/27/16 Reason for consult: other (Sacral pressure ulcer) - History of present illness History of present illness: 46 yo female admitted with accelerated HTN and acute CVA. I have been consulted re her sacral decubitus. Pt is currently receiving HD for JUANITA. She is ventilator dependent and has a tracheostomy. Past History Past Medical History: diabetes, hypertension, renal failure, stroke, other ( Medical noncompliance) Past Surgical History: cholecystectomy (per chart review) Social history: other (per chart review, family denied any smoking or alcohol history on admission). denies: smoking, alcohol abuse, prescription drug abuse , IV drug use Family history: hypertension (per chart review) Medications and Allergies Allergies Allergy/AdvReac Type Severity Reaction Status Date / Time No Known Allergies Allergy Verified 04/14/15 06:02 Home Medications Medication Instructions Recorded Confirmed Last Taken Type Acetaminophen [Tylenol Arthritis] 650 mg PO QID PRN #30 tablet.er 02/15/1609/12 Unknown Rx Albuterol Sulfate [Proventil HFA] 6.7 gm INHALATION Q4-6H 02/15/16 09/12/16 History Insulin Glargine [Lantus VIAL] 30 units SQ QHS 02/15/16 09/12/16 02/15/16 History Clonidine HCl [Catapres] 0.3 mg PO TID #90 tablet 06/15/16 09/12/16 Unknown Rx Lisinopril [Zestril] 40 mg PO BID #60 tablet 06/15/16 09/12/16 Unknown Rx Polyethylene Glycol 3350 [Miralax 17 gm PO QDAY PRN #10 packet 06/15/16 Unknown Rx 3350] Albuterol 2 inhalation INHALATION Q4HR PRN 09/12/16 09/12/16 Unknown History AtorvaSTATin [Lipitor] 20 mg PO QHS 09/12/16 09/12/16 Unknown History Flovent 110 MCG/PUFF HFA 1 inhalation INHALATION QHS 09/12/16 09/12/16 Unknown History Furosemide [Lasix] 20 mg PO QDAY 09/12/16 09/12/16 Unknown History HumaLOG VIAL 45 units SUB-Q TID 09/12/16 09/12/16 Unknown History Insulin Aspart [NovoLOG Flexpen] 30 units SUB-Q TID MDD 30 Units 09/12/16 Unknown History Labetalol HCl 300 mg PO BID 09/12/16 09/12/16 Unknown History Spironolactone [Aldactone] 25 mg PO QDAY 09/12/16 09/12/16 Unknown History hydrALAZINE [Apresoline] 25 mg PO BID 09/12/16 09/12/16 Unknown History Active Meds: Active Medications Acetaminophen (Tylenol) 650 mg FEEDTUBE Q6H PRN PRN Reason: Non Cardiac Pain or Temp>100.5 Last Admin: 12/25/16 22:21 Dose: 650 mg Albuterol (Proventil) 2.5 mg IH Q3HRT PRN PRN Reason: Shortness Of Breath Albuterol/Ipratropium (Duoneb *Not For Prn Use*) 1 ampul IH Q6HRT [facility] Last Admin: 12/27/16 08:12 Dose: 1 ampul Amiodarone HCl (Cordarone) 200 mg PO BID [facility] Last Admin: 12/27/16 10:14 Dose: 200 mg Amlodipine Besylate (Norvasc) 10 mg PO DAILY [facility] Last Admin: 12/27/16 10:14 Dose: 10 mg Dextrose (D50w (25gm) Syringe) 25 ml IV PRN PRN PRN Reason: Hypoglycemia Last Admin: 11/24/16 17:47 Dose: 25 ml Epoetin Mariusz (Procrit) 10,000 unit IV [facility] PRN PRN Reason: hemodialysis Last Admin: 12/27/16 13:17 Dose: 10,000 unit Glycopyrrolate (Robinul) 1 mg PO BID [facility] Last Admin: 12/27/16 10:14 Dose: 1 mg Heparin Sodium (Porcine) (Heparin) 5,000 unit IV KERWIN PRN PRN Reason: hemodialysis Last Admin: 12/24/16 18:24 Dose: 5,000 unit Heparin Sodium (Porcine) (Heparin) 5,000 unit SUB-Q BID [facility] Last Admin: 12/27/16 10:13 Dose: 5,000 unit Hydralazine HCl (Apresoline) 100 mg PO Q8HR [facility] Last Admin: 12/27/16 06:40 Dose: Not Given Hydralazine HCl (Apresoline) 10 mg IV Q6HR PRN PRN Reason: SBP > 160 Last Admin: 12/03/16 05:16 Dose: 10 mg Hydrophilic Ointment (Vaseline Lip Therapy) 1 applic TP Q2HR PRN PRN Reason: Dry Lips Last Admin: 12/13/16 21:29 Dose: 1 applic Sodium Chloride (Nacl 0.9%) 100 mls @ 999 mls/hr IV KERWIN PRN PRN Reason: Hypotension Amino Acids/Electrolytes/Dextrose (Tpn Adult) 1,440 mls @ 60 mls/hr IV DAILY@ 2000 [facility] PRN Reason: Protocol Stop: 12/27/16 19:59 Last Admin: 12/26/16 20:11 Dose: 60 mls/hr Sodium Chloride (Nacl 0.9%) 100 mls @ 999 mls/hr IV KERWIN PRN PRN Reason: Hypotension Insulin Human Regular (Novolin R) 0 units SUB-Q Q6HR [facility] PRN Reason: Protocol Last Admin: 12/27/16 12:28 Dose: Not Given Labetalol HCl (Normodyne) 10 mg IV Q6H PRN PRN Reason: SBP > 160 Metoprolol Tartrate (Lopressor) 75 mg PO Q6HR [facility] Last Admin: 12/27/16 12:28 Dose: Not Given Morphine Sulfate (Morphine) 1 mg IV Q4H PRN PRN Reason: Pain, Moderate (4-6) Last Admin: 12/19/16 18:11 Dose: 1 mg Multi-Ingred Cream/Lotion/Oil/Oint (Artificial Tears Ophth Oint) 1 applic OU Q4HR PRN PRN Reason: Dry Eye(s) Last Admin: 12/08/16 21:44 Dose: 1 applic Ondansetron HCl (Zofran) 4 mg IV Q8H PRN PRN Reason: N/V unrelieved by Shelly Last Admin: 12/23/16 09:03 Dose: 4 mg Pantoprazole (Protonix) 40 mg FEEDTUBE DAILY [facility] Last Admin: 12/27/16 10:13 Dose: 40 mg Scopolamine (Transderm-Scop) 1 each TD Q3D [facility] Last Admin: 12/26/16 14:04 Dose: 1 each Sodium Hypochlorite (Dakin's Half Strength) 1 applic TP BID [facility] Review of Systems ROS unobtainable: due to endotracheal tube Exam Vital Signs Temp Pulse Resp BP Pulse Ox 98.4 F 88 18 104/80 98 09/03/16 00:00 09/03/16 00:00 09/03/16 00:00 09/03/16 00:00 09/03/16 00:00 - General physical appearance Positive: well developed, well nourished, no distress - ENT Positive: normal pinna, normal nares - Neck Positive: no masses, other (Tracheostomy is present.) - Respiratory Positive: normal expansion, normal respiratory effort, clear to auscultation - Cardiovascular Rhythm: regular Heart Sounds: Present: S1 & S2 - Extremities Extremities: no ischemia, No edema - Breasts Breasts: deferred - Abdomen Abdomen: Present: soft, bowel sounds normal. Absent: tender, distended Hernia: none - Genitourinary Female Genitourinary: deferred - Integumentary other (There is a 6 cm necrotic sacral ulcer with tunneling. The sacrum is directly palpable within the depths of the wound. The sacral wound has a moderate amount of purulent drainage with necrotic skin and SQ tissue visible.) Results - Labs 12/27/16 05:00 12/27/16 05:00 Abnormal lab results 12/25/16 12/26/16 12/26/16 Range/Units 11:29 12:17 12:33 Hgb (10.1-14.3) gm/dl Hct (30.3-42.9) % BUN (7-17) mg/dL Creatinine (0.7-1.2) mg/dL Glucose (65-100) mg/dL POC Glucose 128 H 117 H (70-105) Phosphorus (2.5-4.5) mg/dL Crossmatch See Detail 12/26/16 12/26/16 12/27/16 Range/Units 20:00 23:21 05:00 Hgb 8.4 L (10.1-14.3) gm/dl Hct 26.3 L D (30.3-42.9) % BUN 85 H (7-17) mg/dL Creatinine 1.6 H (0.7-1.2) mg/dL Glucose 118 H (65-100) mg/dL POC Glucose 124 H (70-105) Phosphorus 4.80 H (2.5-4.5) mg/dL Crossmatch 12/27/16 12/27/16 Range/Units 05:00 05:35 Hgb 7.6 L (10.1-14.3) gm/dl Hct 22.8 L (30.3-42.9) % BUN (7-17) mg/dL Creatinine (0.7-1.2) mg/dL Glucose (65-100) mg/dL POC Glucose 115 H (70-105) Phosphorus (2.5-4.5) mg/dL Crossmatch Diabetes panel 12/27/16 Range/Units 05:00 Sodium 143 (137-145) mmol/L Potassium 4.3 (3.6-5.0) mmol/L Chloride 102.7 (98-107) mmol/L Carbon Dioxide 23 (22-30) mmol/L BUN 85 H (7-17) mg/dL Creatinine 1.6 H (0.7-1.2) mg/dL Glucose 118 H (65-100) mg/dL Calcium 9.5 (8.4-10.2) mg/dL Calcium panel 12/27/16 Range/Units 05:00 Calcium 9.5 (8.4-10.2) mg/dL Phosphorus 4.80 H (2.5-4.5) mg/dL Pituitary panel 12/27/16 Range/Units 05:00 Sodium 143 (137-145) mmol/L Potassium 4.3 (3.6-5.0) mmol/L Chloride 102.7 (98-107) mmol/L Carbon Dioxide 23 (22-30) mmol/L BUN 85 H (7-17) mg/dL Creatinine 1.6 H (0.7-1.2) mg/dL Glucose 118 H (65-100) mg/dL Calcium 9.5 (8.4-10.2) mg/dL Adrenal panel 12/27/16 Range/Units 05:00 Sodium 143 (137-145) mmol/L Potassium 4.3 (3.6-5.0) mmol/L Chloride 102.7 (98-107) mmol/L Carbon Dioxide 23 (22-30) mmol/L BUN 85 H (7-17) mg/dL Creatinine 1.6 H (0.7-1.2) mg/dL Glucose 118 H (65-100) mg/dL Calcium 9.5 (8.4-10.2) mg/dL 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 Current Visit: Yes Status: Acute Plan to address problem: 1) The sacral ulceration needs debridement and unroofing. This can be performed in the OR with minimal sedation. General anesthesia is not necessary , especially in light of her recent CVA. I have called the pt's brother, Bebeto Marroquin at [phone]. There was no answer and I left a message. I received a return call from a female stating that she was unrelated to Ms. العراقي and I confirmed that I had used the correct number on the face sheet. I have called the pt's ICU nurse who states that the pt's brother comes in every afternoon. The nurse will witness the consent that I have filled out and she will call me on my cell if the pt's brother has any questions.
--- NOTE | 2016-12-27 15:33 | Progress Note ---
Assessment and Plan Assessment and plan: Patient is 46-year-old woman with a history of hypertension, diabetes, asthma, hyperlipidemia, chronic kidney disease and anxiety , who was brought in by family because, she couldn't get her words out, her face was also twisted, she was admitted for acute CVA and accelerated hypertension, she had a hx of poor adherence with her medications, and uncontrolled htn. Patient's SBP on admission was noted be greater than 260. TPA was started but this was discontinued after 5 minutes because her blood pressure became uncontrolled. The TPA was not initiated again because the patient was outside the TPA window. Status post cardiac arrest , 11/21/16 - Received CPR and was resuscitated. - Patient is on amiodarone Fever - resolved - Antibiotic discontinued today per ID - s/p R thoracentesis on 11/14, 240cc of serous fluid removed, cx of fluid was negative - Stool negative for C. difficile Severe Sepsis with septic shock - Patient has episode of fever and Surgical wound infection/gram-negative sepsis/candidemia/peritonitis - On TPN JUANITA, ESRD - on HD per nephrology Acute CVA with infarct - Neurology input appreciated - CT shows continued evolution of left MCA infarct with slight mass effect and edema, and there is no hemorrhage - PRINCE showed hyperdynamic with ef of 75%, neither clot nor septal defect seen - MRA Brain shows near complete occlusion of M2 and M3 of the left MCA - Repeat CT scan done on 09/11, shows stable findings - carotid doppler negative - Echo shows preserved systolic function but does show some left ventricular diastolic dysfunction - continue asa and statin Persistent vegetative state - This patient's needs placement at SNF - She was denied for LTACH Acute hypoxic respiratory failure requiring MV >96hrs - Status post tracheostomy, was on T piece Nosocomial acquired aspiration pneumonia/sepsis/UTI - patient has fever and communicated with patient's Nurse to call ID for revisit if the patient need antibiotics. Asthma/COPD exacerbation - ON trach, mechanical ventilation Status Post CVA Bilateral pleural effusion, s/p right thoracentesis A. fib with RVR Diabetes type 2. Continue sliding-scale regular insulin and Accu-Cheks. Hyperlipidemia. Continue statin Nutrition - TPN Anemia requiring multiple transfusions/acute blood loss - Hemoglobin this morning was 7.6 Disposition. Very poor prognosis. The high probability of a clinically significant, sudden or life threatening deterioration of the [neurologic, CV] system(s) required my full and direct attention, intervention and personal management. The aggregate critical care time was [34] minutes. This time is in addition to time spent performing reported procedures but includes the following: [x] Data Review and interpretation [x] Patient assessment and monitoring of vital signs [x] Documentation [x] Medication orders and management History Interval history: Patient was seen and evaluated this morning, patient is in persistent vegetative state. Status post trach, dislodged PEG, fistulas on the skin around the stomach area. Sacral decubitus ulcer. Hospitalist Physical - Physical exam Narrative exam: Patient is on mechanical ventilation Vital signs as documented. Head exam is unremarkable. No scleral icterus . Neck is without jugular venous distension, thyromegaly, or carotid bruits. Lungs are clear to auscultation. Cardiac exam reveals regular rate and Rhythm. First and second heart sounds normal. No murmurs, rubs or gallops. Abdominal exam reveals abscess draining from the PEG site, and multiple fistulas around the stomach. Extremities are nonedematous and both femoral and pedal pulses are normal. Sacral decubitus ulcer. [employer]: comatose - Constitutional Vitals: Temp Pulse Resp BP Pulse Ox 98.7 F 104 H 25 H 91/49 100 12/27/16 12:15 12/27/16 15:18 12/27/16 14:22 12/27/16 15:18 12/27/16 14:23 General appearance: Present: no acute distress, well-nourished, obese Results - Labs CBC & Chem 7: 12/27/16 05:00 12/27/16 05:00 Labs: Laboratory Last Values WBC 16.2 K/mm3 (4.5-11.0) H 12/26/16 05:50 RBC 2.32 M/mm3 (3.65-5.03) L 12/26/16 05:50 Hgb 7.6 gm/dl (10.1-14.3) L 12/27/16 05:00 Hct 22.8 % (30.3-42.9) L 12/27/16 05:00 MCV 85 fl (79-97) 12/26/16 05:50 MCH 27 pg (28-32) L 12/26/16 05:50 MCHC 32 % (30-34) 12/26/16 05:50 RDW 18.6 % (13.2-15.2) H 12/26/16 05:50 Plt Count 196 K/mm3 (140-440) 12/26/16 05:50 Lymph % (Auto) Synthetic Chemist 12/19/16 05:02 [place]cock % (Auto) Synthetic Chemist 12/19/16 05:02 Eos % (Auto) Synthetic Chemist 12/19/16 05:02 Baso % (Auto) Synthetic Chemist 12/19/16 05:02 Lymph # Synthetic Chemist 12/19/16 05:02 Glasscock # Synthetic Chemist 12/19/16 05:02 Eos # Synthetic Chemist 12/19/16 05:02 Baso # Synthetic Chemist 12/19/16 05:02 Add Manual Diff Complete 12/19/16 05:02 Total Counted 100 12/19/16 05:02 Seg Neutrophils % Synthetic Chemist 12/19/16 05:02 Seg Neuts % (Manual) 64.0 % (40.0-70.0) 12/19/16 05:02 Band Neutrophils % 15.0 % 12/19/16 05:02 Lymphocytes % (Manual) 13.0 % (13.4-35.0) L 12/19/16 05:02 Reactive Lymphs % (Man) 0 % 12/19/16 05:02 Monocytes % (Manual) 7.0 % (0.0-7.3) 12/19/16 05:02 Eosinophils % (Manual) 0 % (0.0-4.3) 12/19/16 05:02 Basophils % (Manual) 1.0 % (0.0-1.8) 12/19/16 05:02 Metamyelocytes % 0 % 12/19/16 05:02 Myelocytes % 0 % 12/19/16 05:02 Promyelocytes % 0 % 12/19/16 05:02 Blast Cells % 0 % 12/19/16 05:02 Nucleated RBC % 1.0 % (0.0-0.9) H 12/19/16 05:02 Seg Neutrophils # Synthetic Chemist 12/19/16 05:02 Seg Neutrophils # Man 12.9 K/mm3 (1.8-7.7) H 12/19/16 05:02 Band Neutrophils # 3.0 K/mm3 12/19/16 05:02 Lymphocytes # (Manual) 2.6 K/mm3 (1.2-5.4) 12/19/16 05:02 Abs React Lymphs (Man) 0.0 K/mm3 12/19/16 05:02 Monocytes # (Manual) 1.4 K/mm3 (0.0-0.8) H 12/19/16 05:02 Eosinophils # (Manual) 0.0 K/mm3 (0.0-0.4) 12/19/16 05:02 Basophils # (Manual) 0.2 K/mm3 (0.0-0.1) H 12/19/16 05:02 Metamyelocytes # 0.0 K/mm3 12/19/16 05:02 Myelocytes # 0.0 K/mm3 12/19/16 05:02 Promyelocytes # 0.0 K/mm3 12/19/16 05:02 Blast Cells # 0.0 K/mm3 12/19/16 05:02 Pathologist Review 09/13/16 04:00 WBC Morphology Not Reportable 12/19/16 05:02 Hypersegmented Neuts Not Reportable 12/19/16 05:02 Hyposegmented Neuts Not Reportable 12/19/16 05:02 Hypogranular Neuts Not Reportable 12/19/16 05:02 Smudge Cells Not Reportable 12/19/16 05:02 Toxic Granulation Not Reportable 12/19/16 05:02 Toxic Vacuolation Not Reportable 12/19/16 05:02 Dohle Bodies Not Reportable 12/19/16 05:02 Pelger-Huet Anomaly Not Reportable 12/19/16 05:02 Jasmina Rods Not Reportable 12/19/16 05:02 Platelet Estimate Consistent w auto 12/19/16 05:02 Clumped Platelets Not Reportable 12/19/16 05:02 Plt Clumps, EDTA Not Reportable 12/19/16 05:02 Large Platelets Not Reportable 12/19/16 05:02 Giant Platelets Not Reportable 12/19/16 05:02 Platelet Satelliting Not Reportable 12/19/16 05:02 Plt Morphology Comment Not Reportable 12/19/16 05:02 RBC Morphology Not Reportable 12/19/16 05:02 Dimorphic RBCs Not Reportable 12/19/16 05:02 Polychromasia Not Reportable 12/19/16 05:02 Hypochromasia Not Reportable 12/19/16 05:02 Poikilocytosis Not Reportable 12/19/16 05:02 Anisocytosis Not Reportable 12/19/16 05:02 Microcytosis Not Reportable 12/19/16 05:02 Macrocytosis Not Reportable 12/19/16 05:02 Spherocytes Not Reportable 12/19/16 05:02 Pappenheimer Bodies Not Reportable 12/19/16 05:02 Sickle Cells Not Reportable 12/19/16 05:02 Target Cells Few 12/19/16 05:02 Tear Drop Cells Not Reportable 12/19/16 05:02 Ovalocytes Not Reportable 12/19/16 05:02 Stomatocytes Rare 12/03/16 04:00 Helmet Cells Not Reportable 12/19/16 05:02 Monet-Antelope Bodies Not Reportable 12/19/16 05:02 Norphlet Rings Not Reportable 12/19/16 05:02 Chuck Cells Not Reportable 12/19/16 05:02 Bite Cells Not Reportable 12/19/16 05:02 Crenated Cell Not Reportable 12/19/16 05:02 Elliptocytes Not Reportable 12/19/16 05:02 Acanthocytes (Spur) Not Reportable 12/19/16 05:02 Rouleaux Not Reportable 12/19/16 05:02 Hemoglobin C Crystals Not Reportable 12/19/16 05:02 Schistocytes Not Reportable 12/19/16 05:02 Malaria parasites Not Reportable 12/19/16 05:02 ESR > 140.0 mm/Hr (0-20) 09/08/16 11:48 Jun Bodies Not Reportable 12/19/16 05:02 Hem Pathologist Commnt No 12/19/16 05:02 PT 16.8 Sec. (12.2-14.9) H 11/17/16 03:20 INR 1.37 (0.87-1.13) H 11/17/16 03:20 APTT 33.0 Sec. (24.2-36.6) 10/09/16 03:45 Thrombin Time 16.8 Sec. (15.1-19.6) 09/03/16 00:10 Fibrinogen 750 mg/dl (211-480) H 09/08/16 11:48 Lupus Anticoagulant see below 09/12/16 09:59 LA PTT Baseline See scanned report 09/12/16 09:59 dRVVT Confirm Interp Positive (Negative) H 09/12/16 09:59 dRVVT Screen 50:50 See scanned report 09/12/16 09:59 dRVVT Mix Interpret See scanned report 09/12/16 09:59 Protein C Antigen 122 % (70-140) 09/08/16 15:35 Free Protein S 97 % normal (50-147) 09/08/16 15:35 Total Protein S 109 % (70-140) 09/08/16 15:35 Antithrombin III Ag 100 % (80-120) 09/08/16 15:35 Heparin Anti-Xa, Unfract Negative (Negative) 09/29/16 13:35 Factor V Activity 182 % (65-150) H 09/08/16 15:35 POC ABG pH 7.503 (7.35-7.45) H 12/19/16 09:36 ABG pH 7.450 pH Units (7.350-7.450) 12/05/16 Unknown POC ABG pCO2 30.1 (35-45) L 12/19/16 09:36 ABG pCO2 29.6 mm Hg 12/05/16 Unknown POC ABG pO2 85 (80-105) 12/19/16 09:36 ABG pO2 75.2 mm Hg (80.0-90.0) L 12/05/16 Unknown POC ABG HCO3 23.6 12/19/16 09:36 ABG HCO3 20.1 mmol/L (20.0-26.0) 12/05/16 Unknown POC ABG Total CO2 25 12/19/16 09:36 POC ABG O2 Sat 97 12/19/16 09:36 ABG O2 Saturation 96.8 % (95.0-99.0) 12/05/16 Unknown ABG O2 Content 9.9 (0.0-44) 12/05/16 Unknown POC ABG Base Excess 1 12/19/16 09:36 ABG Base Excess -3.4 mmol/L (-2.0-3.0) L 12/05/16 Unknown ABG Hemoglobin 7.4 gm/dl (12.0-16.0) L 12/05/16 Unknown ABG Carboxyhemoglobin 1.8 % (0.0-5.0) 12/05/16 Unknown ABG Methemoglobin 0.6 % (0.0-1.5) 12/05/16 Unknown Oxyhemoglobin 94.5 % (95.0-99.0) L 12/05/16 Unknown FiO2 28 % 12/19/16 09:36 Sodium 143 mmol/L (137-145) 12/27/16 05:00 Potassium 4.3 mmol/L (3.6-5.0) 12/27/16 05:00 Chloride 102.7 mmol/L (98-107) 12/27/16 05:00 Carbon Dioxide 23 mmol/L (22-30) 12/27/16 05:00 Anion Gap 22 mmol/L 12/27/16 05:00 BUN 85 mg/dL (7-17) H 12/27/16 05:00 Creatinine 1.6 mg/dL (0.7-1.2) H 12/27/16 05:00 Estimated GFR 42 ml/min 12/27/16 05:00 BUN/Creatinine Ratio 53 % 12/27/16 05:00 Glucose 118 mg/dL (65-100) H 12/27/16 05:00 POC Glucose 115 (70-105) H 12/27/16 05:35 Osmolality 351 Mosm/kg 09/16/16 11:47 Lactic Acid 4.50 mmol/L (0.7-2.0) H* 09/28/16 07:25 Calcium 9.5 mg/dL (8.4-10.2) 12/27/16 05:00 Phosphorus 4.80 mg/dL (2.5-4.5) H 12/27/16 05:00 Magnesium 2.00 mg/dL (1.7-2.3) 12/27/16 05:00 Total Bilirubin 0.90 mg/dL (0.1-1.2) 12/18/16 05:00 Direct Bilirubin 0.3 mg/dL (0-0.2) H 10/10/16 05:00 Indirect Bilirubin 0.1 mg/dL 10/10/16 05:00 AST 34 units/L (5-40) 12/18/16 05:00 ALT 42 units/L (7-56) 12/18/16 05:00 Alkaline Phosphatase 257 units/L (35-129) H 12/18/16 05:00 Ammonia 27.0 umol/L (25-60) 09/07/16 08:37 Lactate Dehydrogenase 196 units/L (91-180) H 11/11/16 06:59 Total Creatine Kinase 121 units/L (30-135) 09/29/16 20:12 CK-MB (CK-2) < 1.0 ng/mL (0.0-4.0) 09/29/16 20:12 CK-MB (CK-2) Rel Index 0.8 (0-4) 09/29/16 20:12 Troponin T 0.204 ng/mL (0.00-0.029) H* 09/29/16 20:12 C-Reactive Protein 19.30 mg/dL (0.00-1.30) H 12/05/16 05:00 Total Protein 5.9 g/dL (6.3-8.2) L 12/18/16 05:00 Albumin 1.8 g/dL (3.9-5) L 12/18/16 05:00 Albumin/Globulin Ratio 0.4 % 12/18/16 05:00 Prealbumin 0.180 g/L (0.200-0.400) L 11/06/16 06:25 Triglycerides 137 mg/dL (2-149) 09/29/16 20:12 Cholesterol 31 mg/dL (50-199) L 09/29/16 20:12 LDL Cholesterol Direct 4 mg/dL (50-130) L 09/29/16 20:12 HDL Cholesterol 3 mg/dL (40-59) L 09/29/16 20:12 Cholesterol/HDL Ratio 10.33 % 09/29/16 20:12 Angiotensin Convert Enz See scanned report 09/08/16 11:48 Renin 0.99 ng/mL/h (0.25-5.82) 10/07/16 10:56 Aldosterone <1 ng/dL () 10/07/16 10:56 Aldosterone/Renin Dir see below 10/07/16 10:56 Serotonin Release Assay See scanned report 09/29/16 13:35 TSH 1.010 mlU/mL (0.270-4.200) 09/07/16 08:37 HCG, Qual Negative (Negative) 09/03/16 00:10 Urine Color Yellow (Yellow) 11/05/16 13:09 Urine Turbidity Clear (Clear) 11/05/16 13:09 Urine pH 9.0 (5.0-7.0) H 11/05/16 13:09 Ur Specific [place] 1.011 (1.003-1.030) 11/05/16 13:09 Urine Protein 100 mg/dl mg/dL (Negative) 11/05/16 13:09 Urine Glucose (UA) Neg mg/dL (Negative) 11/05/16 13:09 Urine Ketones Neg mg/dL (Negative) 11/05/16 13:09 Urine Blood Neg (Negative) 11/05/16 13:09 Urine Nitrite Neg (Negative) 11/05/16 13:09 Urine Bilirubin Neg (Negative) 11/05/16 13:09 Urine Urobilinogen < 2.0 mg/dL (<2.0) 11/05/16 13:09 Ur Leukocyte Esterase Neg (Negative) 11/05/16 13:09 Urine WBC (Auto) 4.0 /HPF (0.0-6.0) 11/05/16 13:09 Urine RBC (Auto) 1.0 /HPF (0.0-6.0) 11/05/16 13:09 U Epithel Cells (Auto) 1.0 /HPF (0-13.0) 10/07/16 18:30 Urine Bacteria (Auto) 4+ /HPF (Negative) 11/05/16 13:09 Urine WBC Clumps 2+ /HPF 09/07/16 02:47 Hyaline Casts 4 /LPF 09/07/16 02:47 Urine Mucus Few /HPF 10/07/16 18:30 Urine Yeast (Budding) 3+ /HPF 10/07/16 18:30 Urine Eosinophils None seen (None Seen) 09/07/16 16:00 Urine Total Volume 950 11/12/16 10:18 Urine Creatinine 19.7 mg/dL (0.1-20.0) 11/12/16 10:18 Height (in) 65.0 inches 11/12/16 10:18 Weight (lb) 181.0 lbs 11/12/16 10:18 Creatinine Clearance 5 11/12/16 10:18 Urine Sodium 36 mEq/L 09/16/16 19:19 Urine Total Protein 16 mg/dL (5-11.8) H 09/16/16 19:19 Fluid Total Protein < 3.0 (15.0-45.0) L 11/10/16 14:20 Fluid LDH 123 11/10/16 14:20 Vancomycin Trough 2.3 ug/mL (5.0-20.0) L 09/21/16 13:00 Random Vancomycin 16.5 ug/mL (0-40.0) 11/28/16 09:45 Urine Opiates Screen Presumptive negative 09/03/16 15:11 Urine Methadone Screen Presumptive positive 09/03/16 15:11 Ur Barbiturates Screen Presumptive positive 09/03/16 15:11 Ur Phencyclidine Scrn Presumptive negative 09/03/16 15:11 Ur Amphetamines Screen Presumptive negative 09/03/16 15:11 U Benzodiazepines Scrn Presumptive negative 09/03/16 15:11 Urine Cocaine Screen Presumptive negative 09/03/16 15:11 U Marijuana (THC) Screen Presumptive positive 09/03/16 15:11 Drugs of Abuse Note Disclamer 09/03/16 15:11 Rheumatoid Factor 24 IU/ml (0-13) H 09/08/16 11:48 SAHIL Screen Negative (Negative) 09/07/16 09:20 Proteinase 3 (PR3) Ab <1.0 AI (<1.0) 09/07/16 09:20 Myeloperoxidase Ab <1.0 AI (<1.0) 09/07/16 09:20 Sjogren's Antibody <1.0 AI (<1.0) 09/08/16 15:35 Scl-70 Scleroderma Ab <1.0 AI (<1.0) 09/08/16 15:35 Centromere B Antibody <1.0 AI (<1.0) 09/08/16 12:02 Heparin-induced Plt Ab Negative (Negative) 09/29/16 13:35 UF Heparin High Dose 11 % Release 09/29/16 13:35 SUDHIR UFH Low Dose 0.1 6 % Release 09/29/16 13:35 SUDHIR UFH Low Dose 0.5 8 % Release 09/29/16 13:35 Cardiolipid IgG Ab <14 GPL (<=14) 09/12/16 09:59 Cardiolipid IgA Ab <11 APL (<=11) 09/12/16 09:59 Cardiolipid IgM Ab <12 MPL (<=12) 09/12/16 09:59 Complement C3 148 mg/dL (90-180) 09/07/16 09:20 Complement C4 58 mg/dL (16-47) H 09/07/16 09:20 RPR Nonreactive (Nonreactive) 09/08/16 11:48 Hepatitis A IgM Ab Non-reactive (NonReactive) 09/24/16 14:40 Hep Bs Antigen Non-reactive (Negative) 09/24/16 14:40 Hep B Core IgM Ab Non-reactive (NonReactive) 09/24/16 14:40 Hepatitis C Antibody Non-reactive (NonReactive) 09/24/16 14:40 HIV 1&2 Antibody Rapid Non react (Non React) 09/08/16 11:48 HIV P24 Antigen Non react (Non React) 09/08/16 11:48 Miscellaneous Test Flexitest 1 H 11/05/16 13:25 Blood Type A POSITIVE 12/26/16 12:33 Antibody Screen Negative 12/26/16 12:33 DELORIS Antibody Screen Negative 11/24/16 11:20 Crossmatch See Detail 12/26/16 12:33
[2016-12-27] MEDS: HEPARIN IV PRN (15:45)
[2016-12-27] MEDS ORDERED: TPN ADULT IV SCH (20:00)
[2016-12-27] MEDS: TYLENOL FEEDTUBE PRN (22:45)
[2016-12-28] MEDS: HumuLIN R SUB-Q SCH ×4 (00:58→18:29)
[2016-12-28] MEDS: DUONEB *Not for PRN Use IH SCH ×4 (01:51→20:02)
[2016-12-28 04:53] LABS: Basophils # (Auto) 0.1 K/mm3 (0.0-0.1); Basophils % (Auto) 0.5 % (0.0-1.8); Eosinophils # (Auto) 0.1 K/mm3 (0.0-0.4); Eosinophils % (Auto) 0.5 % (0.0-4.3); Hemoglobin 7.1 gm/dl (10.1-14.3); Lymphocytes # (Auto) 2.1 K/mm3 (1.2-5.4); Lymphocytes % (Auto) 12.2 % (13.4-35.0); Mean Corpuscular HGB Conc 32 % (30-34); Mean Corpuscular Hemoglobin 28 pg (28-32); Mean Corpuscular Volume 85 fl (79-97); Monocytes # (Auto) 1.1 K/mm3 (0.0-0.8); Monocytes % (Auto) 6.3 % (0.0-7.3); Platelet Count 227 K/mm3 (140-440); Red Blood Count 2.58 M/mm3 (3.65-5.03); Red Cell Distribution Width 17.6 % (13.2-15.2)
[2016-12-28 05:13] LABS: Calcium 8.3 mg/dL (8.4-10.2)
[2016-12-28] MEDS: LOPRESSOR PO SCH ×3 (05:51→18:28)
[2016-12-28] MEDS: APRESOLINE PO SCH ×3 (05:51→22:26)
[2016-12-28 08:58] LABS: INR 1.23 (0.87-1.13)
--- NOTE | 2016-12-28 09:22 | Progress Note ---
Assessment and Plan - Patient Problems (1) JUANITA (acute kidney injury) Current Visit: Yes Status: Acute Plan to address problem: Continue present meds. Multiple comorbid conditions-Suggest supportive care if clinical outcome is poor. Scr-1.2 today.Monitor urine output. Hold off HD for few days and check for renal recovery. Pt was reported to have decubitus ulcer- scheduled for surgery today. (2) Acute CVA (cerebrovascular accident) Current Visit: Yes Status: Acute (3) Acute respiratory failure with hypoxia Current Visit: Yes Status: Acute (4) Atrial fibrillation Current Visit: Yes Status: Chronic Qualifiers: Atrial fibrillation type: A (5) Type 2 diabetes mellitus Current Visit: Yes Status: Chronic Qualifiers: Diabetes mellitus complication status: D Diabetes mellitus complication detail: D Diabetic retinopathy severity: D Proliferative retinopathy type: P Diabetes mellitus macular edema: D Diabetes mellitus care home insulin use : D Laterality: L Chronic kidney disease stage: C (6) Anemia Current Visit: No Status: Acute Qualifiers: Anemia type: unspecified type Iron deficiency anemia type: I Vitamin B12 deficiency anemia type: V Folate deficiency anemia type: F Bone marrow failure anemia type: B Hemolytic anemia type: H Other causes of anemia: O Chronic kidney disease stage: C Qualified Code(s): D64.9 - Anemia, unspecified (7) HTN (hypertension) Current Visit: Yes Status: Acute Qualifiers: Hypertension type: H Subjective Date of service: 12/28/16 Principal diagnosis: Acute resp failure on MVS; S/P Acute CVA; Acute Encephalopathy; JUANITA Interval history: chart was reviewed, discussed with pt's nurse. on ventilator via trach. Objective - Vital Signs Vital signs: Vital Signs - 12hr 12/27/16 12/27/16 12/27/16 21:30 21:45 22:00 Temperature Pulse Rate 113 H 119 H 116 H Pulse Rate [ Anterior Bilateral Throughout] Pulse Rate [ From Monitor] Respiratory 26 H 29 H 29 H Rate Respiratory Rate [Anterior Bilateral Throughout] Respiratory Rate [ Generalized] Blood Pressure 109/61 114/62 124/64 O2 Sat by Pulse 94 95 95 Oximetry O2 Sat by Pulse Oximetry [ Assessment] 12/27/16 12/27/16 12/27/16 22:15 22:30 22:45 Temperature Pulse Rate 116 H 116 H 119 H Pulse Rate [ Anterior Bilateral Throughout] Pulse Rate [ From Monitor] Respiratory 28 H 27 H 27 H Rate Respiratory Rate [Anterior Bilateral Throughout] Respiratory 26 H Rate [ Generalized] Blood Pressure 124/66 121/67 117/64 O2 Sat by Pulse 95 95 95 Oximetry O2 Sat by Pulse Oximetry [ Assessment] 12/27/16 12/27/16 12/27/16 22:47 23:00 23:07 Temperature Pulse Rate 120 H 115 H 121 H Pulse Rate [ Anterior Bilateral Throughout] Pulse Rate [ From Monitor] Respiratory 25 H Rate Respiratory Rate [Anterior Bilateral Throughout] Respiratory Rate [ Generalized] Blood Pressure 117/64 117/68 117/68 O2 Sat by Pulse 95 Oximetry O2 Sat by Pulse Oximetry [ Assessment] 12/27/16 12/27/16 12/27/16 23:14 23:15 23:25 Temperature 99.7 F H Pulse Rate 118 H 118 H Pulse Rate [ Anterior Bilateral Throughout] Pulse Rate [ From Monitor] Respiratory 25 H Rate Respiratory Rate [Anterior Bilateral Throughout] Respiratory Rate [ Generalized] Blood Pressure 117/68 137/86 O2 Sat by Pulse 96 95 Oximetry O2 Sat by Pulse Oximetry [ Assessment] 12/27/16 12/27/16 12/28/16 23:30 23:45 00:00 Temperature Pulse Rate 115 H 96 H 100 H Pulse Rate [ Anterior Bilateral Throughout] Pulse Rate [ 100 H From Monitor] Respiratory 29 H 16 22 Rate Respiratory Rate [Anterior Bilateral Throughout] Respiratory Rate [ Generalized] Blood Pressure 167/106 145/97 139/86 O2 Sat by Pulse 97 100 100 Oximetry O2 Sat by Pulse Oximetry [ Assessment] 12/28/16 12/28/16 12/28/16 00:15 00:30 00:45 Temperature Pulse Rate 101 H 101 H 98 H Pulse Rate [ Anterior Bilateral Throughout] Pulse Rate [ From Monitor] Respiratory 24 24 24 Rate Respiratory Rate [Anterior Bilateral Throughout] Respiratory Rate [ Generalized] Blood Pressure 150/97 150/97 128/80 O2 Sat by Pulse 99 99 100 Oximetry O2 Sat by Pulse Oximetry [ Assessment] 12/28/16 12/28/16 12/28/16 01:00 01:15 01:30 Temperature Pulse Rate 98 H 97 H 99 H Pulse Rate [ Anterior Bilateral Throughout] Pulse Rate [ From Monitor] Respiratory 24 24 24 Rate Respiratory Rate [Anterior Bilateral Throughout] Respiratory Rate [ Generalized] Blood Pressure 133/81 138/86 136/87 O2 Sat by Pulse 97 100 100 Oximetry O2 Sat by Pulse Oximetry [ Assessment] 12/28/16 12/28/16 12/28/16 01:45 01:51 02:00 Temperature Pulse Rate 97 H 100 H Pulse Rate [ 97 H Anterior Bilateral Throughout] Pulse Rate [ From Monitor] Respiratory 24 14 Rate Respiratory 26 H Rate [Anterior Bilateral Throughout] Respiratory Rate [ Generalized] Blood Pressure 123/80 126/76 O2 Sat by Pulse 96 94 Oximetry O2 Sat by Pulse Oximetry [ Assessment] 12/28/16 12/28/16 12/28/16 02:01 02:15 02:20 Temperature Pulse Rate 102 H Pulse Rate [ 103 H Anterior Bilateral Throughout] Pulse Rate [ From Monitor] Respiratory 13 Rate Respiratory 24 Rate [Anterior Bilateral Throughout] Respiratory Rate [ Generalized] Blood Pressure 130/79 O2 Sat by Pulse 95 Oximetry O2 Sat by Pulse 98 Oximetry [ Assessment] 12/28/16 12/28/16 12/28/16 02:30 02:45 03:00 Temperature Pulse Rate 100 H 99 H 99 H Pulse Rate [ Anterior Bilateral Throughout] Pulse Rate [ From Monitor] Respiratory 24 24 20 Rate Respiratory Rate [Anterior Bilateral Throughout] Respiratory Rate [ Generalized] Blood Pressure 122/76 122/77 124/75 O2 Sat by Pulse 99 99 100 Oximetry O2 Sat by Pulse Oximetry [ Assessment] 12/28/16 12/28/16 12/28/16 03:15 03:30 03:39 Temperature 98.4 F Pulse Rate 98 H 97 H Pulse Rate [ Anterior Bilateral Throughout] Pulse Rate [ From Monitor] Respiratory 23 25 H Rate Respiratory Rate [Anterior Bilateral Throughout] Respiratory Rate [ Generalized] Blood Pressure 104/67 115/73 O2 Sat by Pulse 100 100 Oximetry O2 Sat by Pulse Oximetry [ Assessment] 12/28/16 12/28/16 12/28/16 03:44 03:45 04:00 Temperature Pulse Rate 96 H 96 H 100 H Pulse Rate [ Anterior Bilateral Throughout] Pulse Rate [ 100 H From Monitor] Respiratory 24 25 H Rate Respiratory Rate [Anterior Bilateral Throughout] Respiratory Rate [ Generalized] Blood Pressure 115/73 124/77 129/81 O2 Sat by Pulse 100 100 100 Oximetry O2 Sat by Pulse Oximetry [ Assessment] 12/28/16 12/28/16 12/28/16 04:15 04:30 04:45 Temperature Pulse Rate 102 H 101 H 104 H Pulse Rate [ Anterior Bilateral Throughout] Pulse Rate [ From Monitor] Respiratory 22 23 21 Rate Respiratory Rate [Anterior Bilateral Throughout] Respiratory Rate [ Generalized] Blood Pressure 136/86 126/87 130/84 O2 Sat by Pulse 100 100 100 Oximetry O2 Sat by Pulse Oximetry [ Assessment] 12/28/16 12/28/16 12/28/16 05:00 05:15 05:30 Temperature Pulse Rate 105 H 103 H 103 H Pulse Rate [ Anterior Bilateral Throughout] Pulse Rate [ From Monitor] Respiratory 23 21 24 Rate Respiratory Rate [Anterior Bilateral Throughout] Respiratory Rate [ Generalized] Blood Pressure 145/86 137/87 144/83 O2 Sat by Pulse 100 99 99 Oximetry O2 Sat by Pulse Oximetry [ Assessment] 12/28/16 12/28/16 12/28/16 05:45 06:00 06:15 Temperature Pulse Rate 105 H 105 H 105 H Pulse Rate [ Anterior Bilateral Throughout] Pulse Rate [ From Monitor] Respiratory 22 24 22 Rate Respiratory Rate [Anterior Bilateral Throughout] Respiratory Rate [ Generalized] Blood Pressure 148/88 141/87 142/90 O2 Sat by Pulse 99 99 99 Oximetry O2 Sat by Pulse Oximetry [ Assessment] 12/28/16 12/28/16 12/28/16 06:30 06:45 07:00 Temperature Pulse Rate 104 H 109 H 104 H Pulse Rate [ Anterior Bilateral Throughout] Pulse Rate [ From Monitor] Respiratory 25 H 24 23 Rate Respiratory Rate [Anterior Bilateral Throughout] Respiratory Rate [ Generalized] Blood Pressure 144/88 141/98 142/88 O2 Sat by Pulse 100 100 100 Oximetry O2 Sat by Pulse Oximetry [ Assessment] 12/28/16 12/28/16 12/28/16 07:15 07:30 07:45 Temperature Pulse Rate 104 H 104 H 104 H Pulse Rate [ Anterior Bilateral Throughout] Pulse Rate [ From Monitor] Respiratory 20 25 H 26 H Rate Respiratory Rate [Anterior Bilateral Throughout] Respiratory Rate [ Generalized] Blood Pressure 140/89 147/86 153/87 O2 Sat by Pulse 100 100 100 Oximetry O2 Sat by Pulse Oximetry [ Assessment] 12/28/16 12/28/16 12/28/16 08:00 08:15 08:30 Temperature 98.6 F Pulse Rate 105 H 109 H 106 H Pulse Rate [ Anterior Bilateral Throughout] Pulse Rate [ From Monitor] Respiratory 24 27 H 26 H Rate Respiratory Rate [Anterior Bilateral Throughout] Respiratory Rate [ Generalized] Blood Pressure 143/88 175/98 133/84 O2 Sat by Pulse 100 97 100 Oximetry O2 Sat by Pulse Oximetry [ Assessment] - General Appearance General appearance: chronically ill, sedated on ventilator EENT: mucous membranes moist Neck: no JVD Respiratory: Present: Decreased Breath Sounds Cardiology: irregular, tachycardia Gastrointestinal: normoactive bowel sounds - Lab 12/28/16 04:00 12/28/16 04:00 Most recent lab results ABG pH 7.450 pH Units (7.350-7.450) 12/05/16 Unknown ABG pCO2 29.6 mm Hg 12/05/16 Unknown ABG pO2 75.2 mm Hg (80.0-90.0) L 12/05/16 Unknown ABG HCO3 20.1 mmol/L (20.0-26.0) 12/05/16 Unknown ABG O2 Saturation 96.8 % (95.0-99.0) 12/05/16 Unknown Calcium 8.3 mg/dL (8.4-10.2) L 12/28/16 04:00 Phosphorus 3.20 mg/dL (2.5-4.5) D 12/28/16 04:00 Magnesium 1.80 mg/dL (1.7-2.3) 12/28/16 04:00 Urine Creatinine 19.7 mg/dL (0.1-20.0) 11/12/16 10:18 Urine Sodium 36 mEq/L 09/16/16 19:19 Urine Total Protein 16 mg/dL (5-11.8) H 09/16/16 19:19
[2016-12-28] MEDS: ROBINUL PO SCH ×2 (10:00→21:31)
[2016-12-28] MEDS: HEPARIN SUB-Q SCH ×2 (10:09→21:31)
[2016-12-28] MEDS: NORVASC PO SCH (10:23)
[2016-12-28] MEDS: CORDARONE PO SCH ×2 (10:24→22:26)
[2016-12-28] MEDS: DAKIN'S HALF STRENGTH TP SCH ×2 (10:35→22:26)
[2016-12-28] MEDS ORDERED: fentaNYL DRIP Premix 2,000 MCG/100 ML BAG IV SCH (11:00)
--- NOTE | 2016-12-28 12:30 | Progress Note ---
Assessment and Plan Acute Hypoxemic Respiratory Failure (now with exacerbation and back on MVS) Hypertension (unable to receive p.o. 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 - continue wound care per WCT and RH's (surgical debridement today) - continue prn vasopressin if MAP falls < 60mmHg - prn CRP & lactate levels if clinically indicated (Follow WBC also) - keep on with daily PSV trials and / or T-piece as tolerated (repeat trial each shift if failed earlier shift) - continue TPN administration (continue TPN; NPO except for meds) - continue scopolamine for secretion control - continue to wean FiO2 for sats > 94% - continue bronchodilators and pulmonary toilet - VAP bundle addressed - continue prn IV metorolol - continue metoprolol and amlodipine (hold for hypotension) - continue HD/UF per nephrology (Teu/Thurs/Sat) - continue to follow electrolytes and correct as necessary - continue GI & VTE prophylaxis - Continue flu & pneumovax per protocol - ethics consult placed .....she remains critically ill on life sustaining interventions including MVS and at risk for further deterioration including ....30' CCT today without overlap ...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 and this has intermittently been conveyed to family Subjective Date of service: 12/28/16 Principal diagnosis: Acute resp failure on MVS; S/P Acute CVA; Acute Encephalopathy; JUANITA Interval history: Patient is seen today for: Acute resp failure on MVS; S/P Acute CVA; Acute Encephalopathy; JUANITA Seen and examined at bedside; 24hour events reviewed; nursing and respiratory care staff consulted; no adverse overnight events reported to me; remains on MVS ; resting in bed; AMS is persistent; No gross bleeding; still with increased work of breathing and persistent pleural effusions; tentatively to OR for sacral wound debridement today. Objective Vital Signs - 12hr 12/28/16 12/28/16 12/28/16 00:45 01:00 01:15 Temperature Pulse Rate 98 H 98 H 97 H Pulse Rate [ Anterior Bilateral Throughout] Pulse Rate [ From Monitor] Respiratory 24 24 24 Rate Respiratory Rate [Anterior Bilateral Throughout] Blood Pressure 128/80 133/81 138/86 O2 Sat by Pulse 100 97 100 Oximetry O2 Sat by Pulse Oximetry [ Assessment] 12/28/16 12/28/16 12/28/16 01:30 01:45 01:51 Temperature Pulse Rate 99 H 97 H Pulse Rate [ 97 H Anterior Bilateral Throughout] Pulse Rate [ From Monitor] Respiratory 24 24 Rate Respiratory 26 H Rate [Anterior Bilateral Throughout] Blood Pressure 136/87 123/80 O2 Sat by Pulse 100 96 Oximetry O2 Sat by Pulse Oximetry [ Assessment] 12/28/16 12/28/16 12/28/16 02:00 02:01 02:15 Temperature Pulse Rate 100 H 102 H Pulse Rate [ 103 H Anterior Bilateral Throughout] Pulse Rate [ From Monitor] Respiratory 14 13 Rate Respiratory 24 Rate [Anterior Bilateral Throughout] Blood Pressure 126/76 130/79 O2 Sat by Pulse 94 95 Oximetry O2 Sat by Pulse Oximetry [ Assessment] 12/28/16 12/28/16 12/28/16 02:20 02:30 02:45 Temperature Pulse Rate 100 H 99 H Pulse Rate [ Anterior Bilateral Throughout] Pulse Rate [ From Monitor] Respiratory 24 24 Rate Respiratory Rate [Anterior Bilateral Throughout] Blood Pressure 122/76 122/77 O2 Sat by Pulse 99 99 Oximetry O2 Sat by Pulse 98 Oximetry [ Assessment] 12/28/16 12/28/16 12/28/16 03:00 03:15 03:30 Temperature Pulse Rate 99 H 98 H 97 H Pulse Rate [ Anterior Bilateral Throughout] Pulse Rate [ From Monitor] Respiratory 20 23 25 H Rate Respiratory Rate [Anterior Bilateral Throughout] Blood Pressure 124/75 104/67 115/73 O2 Sat by Pulse 100 100 100 Oximetry O2 Sat by Pulse Oximetry [ Assessment] 12/28/16 12/28/16 12/28/16 03:39 03:44 03:45 Temperature 98.4 F Pulse Rate 96 H 96 H Pulse Rate [ Anterior Bilateral Throughout] Pulse Rate [ From Monitor] Respiratory 24 Rate Respiratory Rate [Anterior Bilateral Throughout] Blood Pressure 115/73 124/77 O2 Sat by Pulse 100 100 Oximetry O2 Sat by Pulse Oximetry [ Assessment] 12/28/16 12/28/16 12/28/16 04:00 04:15 04:30 Temperature Pulse Rate 100 H 102 H 101 H Pulse Rate [ Anterior Bilateral Throughout] Pulse Rate [ 100 H From Monitor] Respiratory 25 H 22 23 Rate Respiratory Rate [Anterior Bilateral Throughout] Blood Pressure 129/81 136/86 126/87 O2 Sat by Pulse 100 100 100 Oximetry O2 Sat by Pulse Oximetry [ Assessment] 12/28/16 12/28/16 12/28/16 04:45 05:00 05:15 Temperature Pulse Rate 104 H 105 H 103 H Pulse Rate [ Anterior Bilateral Throughout] Pulse Rate [ From Monitor] Respiratory 21 23 21 Rate Respiratory Rate [Anterior Bilateral Throughout] Blood Pressure 130/84 145/86 137/87 O2 Sat by Pulse 100 100 99 Oximetry O2 Sat by Pulse Oximetry [ Assessment] 12/28/16 12/28/16 12/28/16 05:30 05:45 06:00 Temperature Pulse Rate 103 H 105 H 105 H Pulse Rate [ Anterior Bilateral Throughout] Pulse Rate [ From Monitor] Respiratory 24 22 24 Rate Respiratory Rate [Anterior Bilateral Throughout] Blood Pressure 144/83 148/88 141/87 O2 Sat by Pulse 99 99 99 Oximetry O2 Sat by Pulse Oximetry [ Assessment] 12/28/16 12/28/16 12/28/16 06:15 06:30 06:45 Temperature Pulse Rate 105 H 104 H 109 H Pulse Rate [ Anterior Bilateral Throughout] Pulse Rate [ From Monitor] Respiratory 22 25 H 24 Rate Respiratory Rate [Anterior Bilateral Throughout] Blood Pressure 142/90 144/88 141/98 O2 Sat by Pulse 99 100 100 Oximetry O2 Sat by Pulse Oximetry [ Assessment] 12/28/16 12/28/16 12/28/16 07:00 07:15 07:30 Temperature Pulse Rate 104 H 104 H 104 H Pulse Rate [ Anterior Bilateral Throughout] Pulse Rate [ From Monitor] Respiratory 23 20 25 H Rate Respiratory Rate [Anterior Bilateral Throughout] Blood Pressure 142/88 140/89 147/86 O2 Sat by Pulse 100 100 100 Oximetry O2 Sat by Pulse Oximetry [ Assessment] 12/28/16 12/28/16 12/28/16 07:45 08:00 08:15 Temperature 98.6 F Pulse Rate 104 H 105 H 109 H Pulse Rate [ Anterior Bilateral Throughout] Pulse Rate [ From Monitor] Respiratory 26 H 24 27 H Rate Respiratory Rate [Anterior Bilateral Throughout] Blood Pressure 153/87 143/88 175/98 O2 Sat by Pulse 100 100 97 Oximetry O2 Sat by Pulse Oximetry [ Assessment] 12/28/16 12/28/16 12/28/16 08:30 08:45 09:00 Temperature Pulse Rate 106 H 106 H 107 H Pulse Rate [ Anterior Bilateral Throughout] Pulse Rate [ From Monitor] Respiratory 26 H 25 H 24 Rate Respiratory Rate [Anterior Bilateral Throughout] Blood Pressure 133/84 138/83 137/83 O2 Sat by Pulse 100 100 100 Oximetry O2 Sat by Pulse Oximetry [ Assessment] 12/28/16 12/28/16 12/28/16 09:15 09:30 09:45 Temperature Pulse Rate 101 H 107 H 105 H Pulse Rate [ Anterior Bilateral Throughout] Pulse Rate [ From Monitor] Respiratory 24 22 18 Rate Respiratory Rate [Anterior Bilateral Throughout] Blood Pressure 123/77 140/83 125/73 O2 Sat by Pulse 100 100 99 Oximetry O2 Sat by Pulse Oximetry [ Assessment] 12/28/16 12/28/16 12/28/16 10:00 10:15 10:30 Temperature Pulse Rate 111 H 112 H 113 H Pulse Rate [ Anterior Bilateral Throughout] Pulse Rate [ From Monitor] Respiratory 25 H 27 H 27 H Rate Respiratory Rate [Anterior Bilateral Throughout] Blood Pressure 119/72 120/69 119/70 O2 Sat by Pulse 90 91 91 Oximetry O2 Sat by Pulse Oximetry [ Assessment] 12/28/16 12/28/16 12/28/16 10:45 11:00 11:15 Temperature Pulse Rate 113 H 113 H 114 H Pulse Rate [ Anterior Bilateral Throughout] Pulse Rate [ From Monitor] Respiratory 28 H 29 H 29 H Rate Respiratory Rate [Anterior Bilateral Throughout] Blood Pressure 125/74 131/75 142/87 O2 Sat by Pulse 93 96 96 Oximetry O2 Sat by Pulse Oximetry [ Assessment] 12/28/16 12/28/16 11:30 11:45 Temperature Pulse Rate 110 H 109 H Pulse Rate [ Anterior Bilateral Throughout] Pulse Rate [ From Monitor] Respiratory 18 17 Rate Respiratory Rate [Anterior Bilateral Throughout] Blood Pressure 118/70 116/67 O2 Sat by Pulse 95 97 Oximetry O2 Sat by Pulse Oximetry [ Assessment] Constitutional: appears uncomfortable, other (not tracking) Eyes: non-icteric, other (tracheostomy tube in midline of neck) ENT: oropharynx moist, oropharyngeal exudate pre Neck: supple, no lymphadenopathy, no JVD, other (no thyromegaly) Effort: mildly labored Ascultation: Bilateral: diminished breath sounds (bases), rhonchi (and referred upper airway sounds) Percussion: Bilateral: dull (bases) Cardiovascular: regular rate and rhythm, other (no rubs / murmurs) Gastrointestinal: hypoactive bowel sounds, soft, non-tender, non-distended, other (RLQ & LUQ stomas with colostomy bags) Integumentary: decubitus ulcer (sacral; stage 4), other (no rash; no cellulitis ; poor turgor) Extremities: no cyanosis, pulses normal, no ischemia or petechiae, edema (1+ bilaterally) Neurologic: pupils equal and round, unable to assess, other (encephalopathic) Psychiatric: other (unable to assess) CBC and BMP: 12/28/16 04:00 12/29/16 05:15 ABG, PT/INR, D-dimer: ABG POC ABG pH 7.503 (7.35-7.45) H 12/19/16 09:36 ABG pH 7.450 pH Units (7.350-7.450) 12/05/16 Unknown POC ABG pCO2 30.1 (35-45) L 12/19/16 09:36 ABG pCO2 29.6 mm Hg 12/05/16 Unknown POC ABG pO2 85 (80-105) 12/19/16 09:36 ABG pO2 75.2 mm Hg (80.0-90.0) L 12/05/16 Unknown POC ABG HCO3 23.6 12/19/16 09:36 POC ABG Total CO2 25 12/19/16 09:36 POC ABG O2 Sat 97 12/19/16 09:36 ABG O2 Saturation 96.8 % (95.0-99.0) 12/05/16 Unknown PT/INR, D-dimer PT 16.1 Sec. (12.2-14.9) H 12/28/16 08:30 INR 1.23 (0.87-1.13) H 12/28/16 08:30 Abnormal lab findings: Abnormal Labs 09/03/16 09/03/16 09/03/16 12:12 15:07 16:20 WBC RBC Hgb Hct MCV MCH MCHC RDW Plt Count Lymph % (Auto) [place] % (Auto) Lymph # [place] # Baso # Seg Neutrophils % Seg Neuts % (Manual) Lymphocytes % (Manual) Monocytes % (Manual) Eosinophils % (Manual) Basophils % (Manual) Nucleated RBC % Seg Neutrophils # Seg Neutrophils # Man Lymphocytes # (Manual) Monocytes # (Manual) Eosinophils # (Manual) Basophils # (Manual) PT INR Fibrinogen dRVVT Confirm Interp Factor V Activity POC ABG pH 7.452 H POC ABG pCO2 POC ABG pO2 ABG pO2 ABG HCO3 ABG Base Excess ABG Hemoglobin Oxyhemoglobin Sodium Potassium Chloride Carbon Dioxide BUN Creatinine Glucose POC Glucose 178 H Lactic Acid Calcium Phosphorus 2.20 L Magnesium 1.60 L Direct Bilirubin AST ALT Alkaline Phosphatase Lactate Dehydrogenase Troponin T C-Reactive Protein Total Protein Albumin Prealbumin Triglycerides Cholesterol LDL Cholesterol Direct HDL Cholesterol Urine pH Urine WBC (Auto) Urine Creatinine Urine Total Protein Fluid Total Protein Vancomycin Trough Rheumatoid Factor Complement C4 Miscellaneous Test Crossmatch 09/03/16 09/03/16 09/03/16 17:57 17:58 23:50 WBC RBC Hgb Hct MCV MCH MCHC RDW Plt Count Lymph % (Auto) [place] % (Auto) Lymph # [place] # Baso # Seg Neutrophils % Seg Neuts % (Manual) Lymphocytes % (Manual) Monocytes % (Manual) Eosinophils % (Manual) Basophils % (Manual) Nucleated RBC % Seg Neutrophils # Seg Neutrophils # Man Lymphocytes # (Manual) Monocytes # (Manual) Eosinophils # (Manual) Basophils # (Manual) PT INR Fibrinogen dRVVT Confirm Interp Factor V Activity POC ABG pH POC ABG pCO2 POC ABG pO2 ABG pO2 ABG HCO3 ABG Base Excess ABG Hemoglobin Oxyhemoglobin Sodium Potassium Chloride Carbon Dioxide BUN Creatinine Glucose POC Glucose 162 H 145 H Lactic Acid Calcium Phosphorus 2.30 L Magnesium Direct Bilirubin AST ALT Alkaline Phosphatase Lactate Dehydrogenase Troponin T C-Reactive Protein Total Protein Albumin Prealbumin Triglycerides Cholesterol LDL Cholesterol Direct HDL Cholesterol Urine pH Urine WBC (Auto) Urine Creatinine Urine Total Protein Fluid Total Protein Vancomycin Trough Rheumatoid Factor Complement C4 Miscellaneous Test Crossmatch 09/04/16 09/04/16 09/04/16 03:31 03:31 05:42 WBC RBC Hgb 9.7 L D Hct MCV 72 L MCH 23 L MCHC RDW 17.5 H Plt Count Lymph % (Auto) 11.1 L [place] % (Auto) Lymph # [place] # Baso # Seg Neutrophils % 84.3 H Seg Neuts % (Manual) Lymphocytes % (Manual) Monocytes % (Manual) Eosinophils % (Manual) Basophils % (Manual) Nucleated RBC % Seg Neutrophils # 8.9 H Seg Neutrophils # Man Lymphocytes # (Manual) Monocytes # (Manual) Eosinophils # (Manual) Basophils # (Manual) PT INR Fibrinogen dRVVT Confirm Interp Factor V Activity POC ABG pH POC ABG pCO2 POC ABG pO2 ABG pO2 ABG HCO3 ABG Base Excess ABG Hemoglobin Oxyhemoglobin Sodium 135 L Potassium 2.9 L* Chloride 97.2 L Carbon Dioxide 19 L BUN Creatinine 1.7 H Glucose 170 H POC Glucose 152 H Lactic Acid Calcium Phosphorus Magnesium Direct Bilirubin AST ALT Alkaline Phosphatase Lactate Dehydrogenase Troponin T C-Reactive Protein Total Protein Albumin Prealbumin Triglycerides 160 H Cholesterol LDL Cholesterol Direct HDL Cholesterol 31 L Urine pH Urine WBC (Auto) Urine Creatinine Urine Total Protein Fluid Total Protein Vancomycin Trough Rheumatoid Factor Complement C4 Miscellaneous Test Crossmatch 09/04/16 09/04/16 09/04/16 11:34 17:46 23:29 WBC RBC Hgb Hct MCV MCH MCHC RDW Plt Count Lymph % (Auto) [place] % (Auto) Lymph # [place] # Baso # Seg Neutrophils % Seg Neuts % (Manual) Lymphocytes % (Manual) Monocytes % (Manual) Eosinophils % (Manual) Basophils % (Manual) Nucleated RBC % Seg Neutrophils # Seg Neutrophils # Man Lymphocytes # (Manual) Monocytes # (Manual) Eosinophils # (Manual) Basophils # (Manual) PT INR Fibrinogen dRVVT Confirm Interp Factor V Activity POC ABG pH POC ABG pCO2 POC ABG pO2 ABG pO2 ABG HCO3 ABG Base Excess ABG Hemoglobin Oxyhemoglobin Sodium Potassium Chloride Carbon Dioxide BUN Creatinine Glucose POC Glucose 165 H 210 H 139 H Lactic Acid Calcium Phosphorus Magnesium Direct Bilirubin AST ALT Alkaline Phosphatase Lactate Dehydrogenase Troponin T C-Reactive Protein Total Protein Albumin Prealbumin Triglycerides Cholesterol LDL Cholesterol Direct HDL Cholesterol Urine pH Urine WBC (Auto) Urine Creatinine Urine Total Protein Fluid Total Protein Vancomycin Trough Rheumatoid Factor Complement C4 Miscellaneous Test Crossmatch 09/05/16 09/05/16 09/05/16 04:05 04:05 05:38 WBC RBC Hgb Hct MCV 76 L D MCH 23 L MCHC RDW 17.8 H Plt Count Lymph % (Auto) [place] % (Auto) Lymph # [place] # Baso # Seg Neutrophils % Seg Neuts % (Manual) Lymphocytes % (Manual) Monocytes % (Manual) Eosinophils % (Manual) Basophils % (Manual) Nucleated RBC % Seg Neutrophils # Seg Neutrophils # Man Lymphocytes # (Manual) Monocytes # (Manual) Eosinophils # (Manual) Basophils # (Manual) PT INR Fibrinogen dRVVT Confirm Interp Factor V Activity POC ABG pH POC ABG pCO2 POC ABG pO2 ABG pO2 ABG HCO3 ABG Base Excess ABG Hemoglobin Oxyhemoglobin Sodium 134 L Potassium Chloride Carbon Dioxide 18 L BUN Creatinine 1.8 H Glucose 192 H POC Glucose 175 H Lactic Acid Calcium Phosphorus Magnesium Direct Bilirubin AST ALT Alkaline Phosphatase Lactate Dehydrogenase Troponin T C-Reactive Protein Total Protein Albumin Prealbumin Triglycerides Cholesterol LDL Cholesterol Direct HDL Cholesterol Urine pH Urine WBC (Auto) Urine Creatinine Urine Total Protein Fluid Total Protein Vancomycin Trough Rheumatoid Factor Complement C4 Miscellaneous Test Crossmatch 09/05/16 09/05/16 09/05/16 11:38 17:48 23:22 WBC RBC Hgb Hct MCV MCH MCHC RDW Plt Count Lymph % (Auto) [place] % (Auto) Lymph # [place] # Baso # Seg Neutrophils % Seg Neuts % (Manual) Lymphocytes % (Manual) Monocytes % (Manual) Eosinophils % (Manual) Basophils % (Manual) Nucleated RBC % Seg Neutrophils # Seg Neutrophils # Man Lymphocytes # (Manual) Monocytes # (Manual) Eosinophils # (Manual) Basophils # (Manual) PT INR Fibrinogen dRVVT Confirm Interp Factor V Activity POC ABG pH POC ABG pCO2 POC ABG pO2 ABG pO2 ABG HCO3 ABG Base Excess ABG Hemoglobin Oxyhemoglobin Sodium Potassium Chloride Carbon Dioxide BUN Creatinine Glucose POC Glucose 164 H 186 H 195 H Lactic Acid Calcium Phosphorus Magnesium Direct Bilirubin AST ALT Alkaline Phosphatase Lactate Dehydrogenase Troponin T C-Reactive Protein Total Protein Albumin Prealbumin Triglycerides Cholesterol LDL Cholesterol Direct HDL Cholesterol Urine pH Urine WBC (Auto) Urine Creatinine Urine Total Protein Fluid Total Protein Vancomycin Trough Rheumatoid Factor Complement C4 Miscellaneous Test Crossmatch 09/06/16 09/06/16 09/06/16 04:12 05:59 07:32 WBC RBC Hgb Hct MCV MCH MCHC RDW Plt Count Lymph % (Auto) [place] % (Auto) Lymph # [place] # Baso # Seg Neutrophils % Seg Neuts % (Manual) Lymphocytes % (Manual) Monocytes % (Manual) Eosinophils % (Manual) Basophils % (Manual) Nucleated RBC % Seg Neutrophils # Seg Neutrophils # Man Lymphocytes # (Manual) Monocytes # (Manual) Eosinophils # (Manual) Basophils # (Manual) PT INR Fibrinogen dRVVT Confirm Interp Factor V Activity POC ABG pH 7.514 H POC ABG pCO2 29.1 L POC ABG pO2 72 L ABG pO2 ABG HCO3 ABG Base Excess ABG Hemoglobin Oxyhemoglobin Sodium 133 L Potassium 3.4 L Chloride 94.9 L Carbon Dioxide 19 L BUN 30 H Creatinine 2.1 H Glucose 139 H POC Glucose 146 H Lactic Acid Calcium Phosphorus Magnesium Direct Bilirubin AST ALT Alkaline Phosphatase Lactate Dehydrogenase Troponin T C-Reactive Protein Total Protein Albumin Prealbumin Triglycerides Cholesterol LDL Cholesterol Direct HDL Cholesterol Urine pH Urine WBC (Auto) Urine Creatinine Urine Total Protein Fluid Total Protein Vancomycin Trough Rheumatoid Factor Complement C4 Miscellaneous Test Crossmatch 09/06/16 09/06/16 09/06/16 11:57 17:58 19:02 WBC RBC Hgb Hct MCV MCH MCHC RDW Plt Count Lymph % (Auto) [place] % (Auto) Lymph # [place] # Baso # Seg Neutrophils % Seg Neuts % (Manual) Lymphocytes % (Manual) Monocytes % (Manual) Eosinophils % (Manual) Basophils % (Manual) Nucleated RBC % Seg Neutrophils # Seg Neutrophils # Man Lymphocytes # (Manual) Monocytes # (Manual) Eosinophils # (Manual) Basophils # (Manual) PT INR Fibrinogen dRVVT Confirm Interp Factor V Activity POC ABG pH 7.465 H POC ABG pCO2 32.0 L POC ABG pO2 ABG pO2 ABG HCO3 ABG Base Excess ABG Hemoglobin Oxyhemoglobin Sodium Potassium Chloride Carbon Dioxide BUN Creatinine Glucose POC Glucose 165 H 160 H Lactic Acid Calcium Phosphorus Magnesium Direct Bilirubin AST ALT Alkaline Phosphatase Lactate Dehydrogenase Troponin T C-Reactive Protein Total Protein Albumin Prealbumin Triglycerides Cholesterol LDL Cholesterol Direct HDL Cholesterol Urine pH Urine WBC (Auto) Urine Creatinine Urine Total Protein Fluid Total Protein Vancomycin Trough Rheumatoid Factor Complement C4 Miscellaneous Test Crossmatch 09/06/16 09/07/16 09/07/16 23:45 02:47 02:47 WBC RBC Hgb Hct MCV MCH MCHC RDW Plt Count Lymph % (Auto) [place] % (Auto) Lymph # [place] # Baso # Seg Neutrophils % Seg Neuts % (Manual) Lymphocytes % (Manual) Monocytes % (Manual) Eosinophils % (Manual) Basophils % (Manual) Nucleated RBC % Seg Neutrophils # Seg Neutrophils # Man Lymphocytes # (Manual) Monocytes # (Manual) Eosinophils # (Manual) Basophils # (Manual) PT INR Fibrinogen dRVVT Confirm Interp Factor V Activity POC ABG pH POC ABG pCO2 POC ABG pO2 ABG pO2 ABG HCO3 ABG Base Excess ABG Hemoglobin Oxyhemoglobin Sodium Potassium Chloride Carbon Dioxide BUN Creatinine Glucose POC Glucose 204 H Lactic Acid Calcium Phosphorus Magnesium Direct Bilirubin AST ALT Alkaline Phosphatase Lactate Dehydrogenase Troponin T C-Reactive Protein Total Protein Albumin Prealbumin Triglycerides Cholesterol LDL Cholesterol Direct HDL Cholesterol Urine pH Urine WBC (Auto) 68.0 H Urine Creatinine 106.1 H Urine Total Protein Fluid Total Protein Vancomycin Trough Rheumatoid Factor Complement C4 Miscellaneous Test Crossmatch 09/07/16 09/07/16 09/07/16 04:50 06:19 06:39 WBC RBC Hgb Hct MCV MCH MCHC RDW Plt Count Lymph % (Auto) [place] % (Auto) Lymph # [place] # Baso # Seg Neutrophils % Seg Neuts % (Manual) Lymphocytes % (Manual) Monocytes % (Manual) Eosinophils % (Manual) Basophils % (Manual) Nucleated RBC % Seg Neutrophils # Seg Neutrophils # Man Lymphocytes # (Manual) Monocytes # (Manual) Eosinophils # (Manual) Basophils # (Manual) PT INR Fibrinogen dRVVT Confirm Interp Factor V Activity POC ABG pH 7.457 H POC ABG pCO2 32.1 L POC ABG pO2 76 L ABG pO2 ABG HCO3 ABG Base Excess ABG Hemoglobin Oxyhemoglobin Sodium 132 L Potassium Chloride 94.7 L Carbon Dioxide BUN 53 H Creatinine 2.9 H Glucose 151 H POC Glucose 149 H Lactic Acid Calcium Phosphorus Magnesium Direct Bilirubin AST ALT Alkaline Phosphatase Lactate Dehydrogenase Troponin T C-Reactive Protein Total Protein Albumin Prealbumin Triglycerides Cholesterol LDL Cholesterol Direct HDL Cholesterol Urine pH Urine WBC (Auto) Urine Creatinine Urine Total Protein Fluid Total Protein Vancomycin Trough Rheumatoid Factor Complement C4 Miscellaneous Test Crossmatch 09/07/16 09/07/16 09/07/16 09:20 11:43 11:43 WBC 19.4 H RBC Hgb 8.3 L Hct 26.4 L D MCV 72 L D MCH 22 L MCHC RDW 17.9 H Plt Count Lymph % (Auto) 8.5 L [place] % (Auto) Lymph # [place] # 1.0 H Baso # Seg Neutrophils % 85.8 H Seg Neuts % (Manual) Lymphocytes % (Manual) Monocytes % (Manual) Eosinophils % (Manual) Basophils % (Manual) Nucleated RBC % Seg Neutrophils # 16.6 H Seg Neutrophils # Man Lymphocytes # (Manual) Monocytes # (Manual) Eosinophils # (Manual) Basophils # (Manual) PT INR Fibrinogen dRVVT Confirm Interp Factor V Activity POC ABG pH POC ABG pCO2 POC ABG pO2 ABG pO2 ABG HCO3 ABG Base Excess ABG Hemoglobin Oxyhemoglobin Sodium 134 L Potassium Chloride 97.2 L Carbon Dioxide 20 L BUN 58 H Creatinine 2.9 H Glucose 147 H POC Glucose Lactic Acid Calcium Phosphorus 2.40 L Magnesium 2.40 H Direct Bilirubin AST ALT Alkaline Phosphatase Lactate Dehydrogenase Troponin T C-Reactive Protein Total Protein 5.8 L Albumin 2.2 L Prealbumin Triglycerides Cholesterol LDL Cholesterol Direct HDL Cholesterol Urine pH Urine WBC (Auto) Urine Creatinine Urine Total Protein Fluid Total Protein Vancomycin Trough Rheumatoid Factor Complement C4 58 H Miscellaneous Test Crossmatch 09/07/16 09/07/16 09/07/16 11:50 16:00 17:31 WBC RBC Hgb Hct MCV MCH MCHC RDW Plt Count Lymph % (Auto) [place] % (Auto) Lymph # [place] # Baso # Seg Neutrophils % Seg Neuts % (Manual) Lymphocytes % (Manual) Monocytes % (Manual) Eosinophils % (Manual) Basophils % (Manual) Nucleated RBC % Seg Neutrophils # Seg Neutrophils # Man Lymphocytes # (Manual) Monocytes # (Manual) Eosinophils # (Manual) Basophils # (Manual) PT INR Fibrinogen dRVVT Confirm Interp Factor V Activity POC ABG pH POC ABG pCO2 POC ABG pO2 158 H ABG pO2 ABG HCO3 ABG Base Excess ABG Hemoglobin Oxyhemoglobin Sodium Potassium Chloride Carbon Dioxide BUN Creatinine Glucose POC Glucose 175 H Lactic Acid Calcium Phosphorus Magnesium Direct Bilirubin AST ALT Alkaline Phosphatase Lactate Dehydrogenase Troponin T C-Reactive Protein Total Protein Albumin Prealbumin Triglycerides Cholesterol LDL Cholesterol Direct HDL Cholesterol Urine pH Urine WBC (Auto) Urine Creatinine 66.3 H Urine Total Protein Fluid Total Protein Vancomycin Trough Rheumatoid Factor Complement C4 Miscellaneous Test Crossmatch 09/07/16 09/08/16 09/08/16 23:50 05:46 06:18 WBC 17.8 H RBC 3.58 L Hgb 8.1 L Hct 25.5 L MCV 71 L MCH 23 L MCHC RDW 18.4 H Plt Count Lymph % (Auto) [place] % (Auto) Lymph # [place] # Baso # Seg Neutrophils % Seg Neuts % (Manual) 92.0 H Lymphocytes % (Manual) 6.0 L Monocytes % (Manual) Eosinophils % (Manual) Basophils % (Manual) Nucleated RBC % Seg Neutrophils # Seg Neutrophils # Man 16.4 H Lymphocytes # (Manual) 1.1 L Monocytes # (Manual) Eosinophils # (Manual) Basophils # (Manual) PT INR Fibrinogen dRVVT Confirm Interp Factor V Activity POC ABG pH POC ABG pCO2 34.3 L POC ABG pO2 71 L ABG pO2 ABG HCO3 ABG Base Excess ABG Hemoglobin Oxyhemoglobin Sodium Potassium Chloride Carbon Dioxide BUN Creatinine Glucose POC Glucose 216 H Lactic Acid Calcium Phosphorus Magnesium Direct Bilirubin AST ALT Alkaline Phosphatase Lactate Dehydrogenase Troponin T C-Reactive Protein Total Protein Albumin Prealbumin Triglycerides Cholesterol LDL Cholesterol Direct HDL Cholesterol Urine pH Urine WBC (Auto) Urine Creatinine Urine Total Protein Fluid Total Protein Vancomycin Trough Rheumatoid Factor Complement C4 Miscellaneous Test Crossmatch 09/08/16 09/08/16 09/08/16 06:18 06:51 10:55 WBC RBC Hgb Hct MCV MCH MCHC RDW Plt Count Lymph % (Auto) [place] % (Auto) Lymph # [place] # Baso # Seg Neutrophils % Seg Neuts % (Manual) Lymphocytes % (Manual) Monocytes % (Manual) Eosinophils % (Manual) Basophils % (Manual) Nucleated RBC % Seg Neutrophils # Seg Neutrophils # Man Lymphocytes # (Manual) Monocytes # (Manual) Eosinophils # (Manual) Basophils # (Manual) PT INR Fibrinogen dRVVT Confirm Interp Factor V Activity POC ABG pH POC ABG pCO2 POC ABG pO2 ABG pO2 ABG HCO3 ABG Base Excess ABG Hemoglobin Oxyhemoglobin Sodium 133 L Potassium Chloride 96.9 L Carbon Dioxide 20 L BUN 63 H Creatinine 2.7 H Glucose 195 H POC Glucose 204 H 169 H Lactic Acid Calcium Phosphorus Magnesium Direct Bilirubin AST ALT Alkaline Phosphatase Lactate Dehydrogenase Troponin T C-Reactive Protein Total Protein Albumin Prealbumin Triglycerides Cholesterol LDL Cholesterol Direct HDL Cholesterol Urine pH Urine WBC (Auto) Urine Creatinine Urine Total Protein Fluid Total Protein Vancomycin Trough Rheumatoid Factor Complement C4 Miscellaneous Test Crossmatch 09/08/16 09/08/16 09/08/16 11:48 11:48 11:48 WBC RBC Hgb Hct MCV MCH MCHC RDW Plt Count Lymph % (Auto) [place] % (Auto) Lymph # [place] # Baso # Seg Neutrophils % Seg Neuts % (Manual) Lymphocytes % (Manual) Monocytes % (Manual) Eosinophils % (Manual) Basophils % (Manual) Nucleated RBC % Seg Neutrophils # Seg Neutrophils # Man Lymphocytes # (Manual) Monocytes # (Manual) Eosinophils # (Manual) Basophils # (Manual) PT INR Fibrinogen 750 H dRVVT Confirm Interp Factor V Activity POC ABG pH POC ABG pCO2 POC ABG pO2 ABG pO2 ABG HCO3 ABG Base Excess ABG Hemoglobin Oxyhemoglobin Sodium Potassium Chloride Carbon Dioxide BUN Creatinine Glucose POC Glucose Lactic Acid Calcium Phosphorus Magnesium Direct Bilirubin AST ALT Alkaline Phosphatase Lactate Dehydrogenase Troponin T C-Reactive Protein 15.70 H Total Protein Albumin Prealbumin Triglycerides Cholesterol LDL Cholesterol Direct HDL Cholesterol Urine pH Urine WBC (Auto) Urine Creatinine Urine Total Protein Fluid Total Protein Vancomycin Trough Rheumatoid Factor 24 H Complement C4 Miscellaneous Test Crossmatch 09/08/16 09/08/16 09/09/16 15:35 18:25 00:24 WBC RBC Hgb Hct MCV MCH MCHC RDW Plt Count Lymph % (Auto) [place] % (Auto) Lymph # [place] # Baso # Seg Neutrophils % Seg Neuts % (Manual) Lymphocytes % (Manual) Monocytes % (Manual) Eosinophils % (Manual) Basophils % (Manual) Nucleated RBC % Seg Neutrophils # Seg Neutrophils # Man Lymphocytes # (Manual) Monocytes # (Manual) Eosinophils # (Manual) Basophils # (Manual) PT INR Fibrinogen dRVVT Confirm Interp Factor V Activity 182 H POC ABG pH POC ABG pCO2 POC ABG pO2 ABG pO2 ABG HCO3 ABG Base Excess ABG Hemoglobin Oxyhemoglobin Sodium Potassium Chloride Carbon Dioxide BUN Creatinine Glucose POC Glucose 184 H 216 H Lactic Acid Calcium Phosphorus Magnesium Direct Bilirubin AST ALT Alkaline Phosphatase Lactate Dehydrogenase Troponin T C-Reactive Protein Total Protein Albumin Prealbumin Triglycerides Cholesterol LDL Cholesterol Direct HDL Cholesterol Urine pH Urine WBC (Auto) Urine Creatinine Urine Total Protein Fluid Total Protein Vancomycin Trough Rheumatoid Factor Complement C4 Miscellaneous Test Crossmatch 09/09/16 09/09/16 09/09/16 03:00 03:00 04:04 WBC 27.9 H RBC Hgb 8.7 L Hct 28.1 L MCV 72 L MCH 22 L MCHC RDW 18.4 H Plt Count 485 H Lymph % (Auto) [place] % (Auto) Lymph # [place] # Baso # Seg Neutrophils % Seg Neuts % (Manual) 77.0 H Lymphocytes % (Manual) 9.0 L Monocytes % (Manual) Eosinophils % (Manual) Basophils % (Manual) Nucleated RBC % Seg Neutrophils # Seg Neutrophils # Man 21.5 H Lymphocytes # (Manual) Monocytes # (Manual) 2.0 H Eosinophils # (Manual) Basophils # (Manual) PT INR Fibrinogen dRVVT Confirm Interp Factor V Activity POC ABG pH POC ABG pCO2 POC ABG pO2 121 H ABG pO2 ABG HCO3 ABG Base Excess ABG Hemoglobin Oxyhemoglobin Sodium 135 L Potassium Chloride 96.3 L Carbon Dioxide 21 L BUN 83 H Creatinine 3.0 H Glucose 135 H POC Glucose Lactic Acid Calcium Phosphorus Magnesium Direct Bilirubin AST ALT Alkaline Phosphatase Lactate Dehydrogenase Troponin T C-Reactive Protein Total Protein Albumin Prealbumin Triglycerides Cholesterol LDL Cholesterol Direct HDL Cholesterol Urine pH Urine WBC (Auto) Urine Creatinine Urine Total Protein Fluid Total Protein Vancomycin Trough Rheumatoid Factor Complement C4 Miscellaneous Test Crossmatch 09/09/16 09/09/16 09/09/16 05:41 11:55 14:13 WBC RBC Hgb Hct MCV MCH MCHC RDW Plt Count Lymph % (Auto) [place] % (Auto) Lymph # [place] # Baso # Seg Neutrophils % Seg Neuts % (Manual) Lymphocytes % (Manual) Monocytes % (Manual) Eosinophils % (Manual) Basophils % (Manual) Nucleated RBC % Seg Neutrophils # Seg Neutrophils # Man Lymphocytes # (Manual) Monocytes # (Manual) Eosinophils # (Manual) Basophils # (Manual) PT INR Fibrinogen dRVVT Confirm Interp Factor V Activity POC ABG pH POC ABG pCO2 POC ABG pO2 ABG pO2 ABG HCO3 ABG Base Excess ABG Hemoglobin Oxyhemoglobin Sodium Potassium Chloride Carbon Dioxide BUN Creatinine Glucose POC Glucose 155 H 186 H Lactic Acid Calcium Phosphorus Magnesium Direct Bilirubin AST ALT Alkaline Phosphatase Lactate Dehydrogenase Troponin T C-Reactive Protein Total Protein Albumin Prealbumin Triglycerides Cholesterol LDL Cholesterol Direct HDL Cholesterol Urine pH Urine WBC (Auto) 25.0 H Urine Creatinine Urine Total Protein Fluid Total Protein Vancomycin Trough Rheumatoid Factor Complement C4 Miscellaneous Test Crossmatch 09/09/16 09/09/16 09/10/16 17:33 23:13 05:09 WBC RBC Hgb Hct MCV MCH MCHC RDW Plt Count Lymph % (Auto) [place] % (Auto) Lymph # [place] # Baso # Seg Neutrophils % Seg Neuts % (Manual) Lymphocytes % (Manual) Monocytes % (Manual) Eosinophils % (Manual) Basophils % (Manual) Nucleated RBC % Seg Neutrophils # Seg Neutrophils # Man Lymphocytes # (Manual) Monocytes # (Manual) Eosinophils # (Manual) Basophils # (Manual) PT INR Fibrinogen dRVVT Confirm Interp Factor V Activity POC ABG pH POC ABG pCO2 POC ABG pO2 74 L ABG pO2 ABG HCO3 ABG Base Excess ABG Hemoglobin Oxyhemoglobin Sodium Potassium Chloride Carbon Dioxide BUN Creatinine Glucose POC Glucose 211 H 215 H Lactic Acid Calcium Phosphorus Magnesium Direct Bilirubin AST ALT Alkaline Phosphatase Lactate Dehydrogenase Troponin T C-Reactive Protein Total Protein Albumin Prealbumin Triglycerides Cholesterol LDL Cholesterol Direct HDL Cholesterol Urine pH Urine WBC (Auto) Urine Creatinine Urine Total Protein Fluid Total Protein Vancomycin Trough Rheumatoid Factor Complement C4 Miscellaneous Test Crossmatch 09/10/16 09/10/16 09/10/16 05:17 05:17 11:31 WBC 15.8 H RBC 3.25 L Hgb 7.3 L Hct 22.9 L MCV 71 L MCH 23 L MCHC RDW 18.4 H Plt Count Lymph % (Auto) [place] % (Auto) Lymph # [place] # Baso # Seg Neutrophils % Seg Neuts % (Manual) 91.0 H Lymphocytes % (Manual) 4.0 L Monocytes % (Manual) Eosinophils % (Manual) Basophils % (Manual) Nucleated RBC % Seg Neutrophils # Seg Neutrophils # Man 14.4 H Lymphocytes # (Manual) 0.6 L Monocytes # (Manual) Eosinophils # (Manual) Basophils # (Manual) PT INR Fibrinogen dRVVT Confirm Interp Factor V Activity POC ABG pH POC ABG pCO2 POC ABG pO2 ABG pO2 ABG HCO3 ABG Base Excess ABG Hemoglobin Oxyhemoglobin Sodium Potassium Chloride Carbon Dioxide 21 L BUN 93 H Creatinine 2.9 H Glucose 146 H POC Glucose 188 H Lactic Acid Calcium 8.1 L Phosphorus Magnesium Direct Bilirubin AST ALT Alkaline Phosphatase Lactate Dehydrogenase Troponin T C-Reactive Protein Total Protein Albumin Prealbumin Triglycerides Cholesterol LDL Cholesterol Direct HDL Cholesterol Urine pH Urine WBC (Auto) Urine Creatinine Urine Total Protein Fluid Total Protein Vancomycin Trough Rheumatoid Factor Complement C4 Miscellaneous Test Crossmatch 09/10/16 09/10/16 09/10/16 13:17 17:20 23:32 WBC RBC Hgb Hct MCV MCH MCHC RDW Plt Count Lymph % (Auto) [place] % (Auto) Lymph # [place] # Baso # Seg Neutrophils % Seg Neuts % (Manual) Lymphocytes % (Manual) Monocytes % (Manual) Eosinophils % (Manual) Basophils % (Manual) Nucleated RBC % Seg Neutrophils # Seg Neutrophils # Man Lymphocytes # (Manual) Monocytes # (Manual) Eosinophils # (Manual) Basophils # (Manual) PT INR Fibrinogen dRVVT Confirm Interp Factor V Activity POC ABG pH POC ABG pCO2 POC ABG pO2 ABG pO2 ABG HCO3 ABG Base Excess ABG Hemoglobin Oxyhemoglobin Sodium Potassium Chloride Carbon Dioxide BUN Creatinine Glucose POC Glucose 199 H 186 H Lactic Acid Calcium Phosphorus Magnesium Direct Bilirubin AST ALT Alkaline Phosphatase Lactate Dehydrogenase Troponin T C-Reactive Protein Total Protein Albumin Prealbumin Triglycerides Cholesterol LDL Cholesterol Direct HDL Cholesterol Urine pH Urine WBC (Auto) Urine Creatinine Urine Total Protein Fluid Total Protein Vancomycin Trough Rheumatoid Factor Complement C4 Miscellaneous Test Crossmatch See Detail 09/11/16 09/11/16 09/11/16 05:10 05:10 05:17 WBC 28.4 H RBC Hgb 9.2 L Hct 29.3 L D MCV 73 L MCH 23 L MCHC RDW 18.9 H Plt Count 452 H Lymph % (Auto) [place] % (Auto) Lymph # [place] # Baso # Seg Neutrophils % Seg Neuts % (Manual) 89.5 H Lymphocytes % (Manual) 2.0 L Monocytes % (Manual) Eosinophils % (Manual) Basophils % (Manual) Nucleated RBC % Seg Neutrophils # Seg Neutrophils # Man 25.4 H Lymphocytes # (Manual) 0.6 L Monocytes # (Manual) 1.3 H Eosinophils # (Manual) Basophils # (Manual) PT INR Fibrinogen dRVVT Confirm Interp Factor V Activity POC ABG pH POC ABG pCO2 POC ABG pO2 ABG pO2 ABG HCO3 ABG Base Excess ABG Hemoglobin Oxyhemoglobin Sodium 136 L Potassium Chloride Carbon Dioxide 18 L BUN 107 H Creatinine 2.6 H Glucose 187 H POC Glucose 230 H Lactic Acid Calcium 8.3 L Phosphorus Magnesium Direct Bilirubin AST ALT Alkaline Phosphatase Lactate Dehydrogenase Troponin T C-Reactive Protein Total Protein Albumin Prealbumin Triglycerides Cholesterol LDL Cholesterol Direct HDL Cholesterol Urine pH Urine WBC (Auto) Urine Creatinine Urine Total Protein Fluid Total Protein Vancomycin Trough Rheumatoid Factor Complement C4 Miscellaneous Test Crossmatch 09/11/16 09/11/16 09/11/16 05:55 12:02 17:32 WBC RBC Hgb Hct MCV MCH MCHC RDW Plt Count Lymph % (Auto) [place] % (Auto) Lymph # [place] # Baso # Seg Neutrophils % Seg Neuts % (Manual) Lymphocytes % (Manual) Monocytes % (Manual) Eosinophils % (Manual) Basophils % (Manual) Nucleated RBC % Seg Neutrophils # Seg Neutrophils # Man Lymphocytes # (Manual) Monocytes # (Manual) Eosinophils # (Manual) Basophils # (Manual) PT INR Fibrinogen dRVVT Confirm Interp Factor V Activity POC ABG pH POC ABG pCO2 33.8 L POC ABG pO2 ABG pO2 ABG HCO3 ABG Base Excess ABG Hemoglobin Oxyhemoglobin Sodium Potassium Chloride Carbon Dioxide BUN Creatinine Glucose POC Glucose 191 H 239 H Lactic Acid Calcium Phosphorus Magnesium Direct Bilirubin AST ALT Alkaline Phosphatase Lactate Dehydrogenase Troponin T C-Reactive Protein Total Protein Albumin Prealbumin Triglycerides Cholesterol LDL Cholesterol Direct HDL Cholesterol Urine pH Urine WBC (Auto) Urine Creatinine Urine Total Protein Fluid Total Protein Vancomycin Trough Rheumatoid Factor Complement C4 Miscellaneous Test Crossmatch 09/11/16 09/12/16 09/12/16 23:52 05:09 05:32 WBC RBC Hgb Hct MCV MCH MCHC RDW Plt Count Lymph % (Auto) [place] % (Auto) Lymph # [place] # Baso # Seg Neutrophils % Seg Neuts % (Manual) Lymphocytes % (Manual) Monocytes % (Manual) Eosinophils % (Manual) Basophils % (Manual) Nucleated RBC % Seg Neutrophils # Seg Neutrophils # Man Lymphocytes # (Manual) Monocytes # (Manual) Eosinophils # (Manual) Basophils # (Manual) PT INR Fibrinogen dRVVT Confirm Interp Factor V Activity POC ABG pH POC ABG pCO2 34.6 L POC ABG pO2 ABG pO2 ABG HCO3 ABG Base Excess ABG Hemoglobin Oxyhemoglobin Sodium Potassium Chloride Carbon Dioxide BUN Creatinine Glucose POC Glucose 265 H 184 H Lactic Acid Calcium Phosphorus Magnesium Direct Bilirubin AST ALT Alkaline Phosphatase Lactate Dehydrogenase Troponin T C-Reactive Protein Total Protein Albumin Prealbumin Triglycerides Cholesterol LDL Cholesterol Direct HDL Cholesterol Urine pH Urine WBC (Auto) Urine Creatinine Urine Total Protein Fluid Total Protein Vancomycin Trough Rheumatoid Factor Complement C4 Miscellaneous Test Crossmatch 09/12/16 09/12/16 09/12/16 06:45 06:45 07:22 WBC 31.7 H RBC 3.54 L Hgb 8.3 L Hct 25.9 L MCV 73 L MCH 23 L MCHC RDW 18.9 H Plt Count Lymph % (Auto) [place] % (Auto) Lymph # [place] # Baso # Seg Neutrophils % Seg Neuts % (Manual) 88.5 H Lymphocytes % (Manual) 4.5 L Monocytes % (Manual) Eosinophils % (Manual) Basophils % (Manual) Nucleated RBC % Seg Neutrophils # Seg Neutrophils # Man 28.1 H Lymphocytes # (Manual) Monocytes # (Manual) 1.0 H Eosinophils # (Manual) Basophils # (Manual) PT INR Fibrinogen dRVVT Confirm Interp Factor V Activity POC ABG pH POC ABG pCO2 POC ABG pO2 ABG pO2 ABG HCO3 ABG Base Excess ABG Hemoglobin Oxyhemoglobin Sodium Potassium Chloride Carbon Dioxide 20 L BUN 115 H Creatinine 2.7 H Glucose 165 H POC Glucose Lactic Acid Calcium 8.0 L Phosphorus Magnesium Direct Bilirubin AST ALT Alkaline Phosphatase Lactate Dehydrogenase Troponin T C-Reactive Protein Total Protein Albumin Prealbumin Triglycerides 217 H Cholesterol LDL Cholesterol Direct HDL Cholesterol Urine pH Urine WBC (Auto) Urine Creatinine Urine Total Protein Fluid Total Protein Vancomycin Trough Rheumatoid Factor Complement C4 Miscellaneous Test Crossmatch 09/12/16 09/12/16 09/12/16 07:22 09:59 12:21 WBC RBC Hgb Hct MCV MCH MCHC RDW Plt Count Lymph % (Auto) [place] % (Auto) Lymph # [place] # Baso # Seg Neutrophils % Seg Neuts % (Manual) Lymphocytes % (Manual) Monocytes % (Manual) Eosinophils % (Manual) Basophils % (Manual) Nucleated RBC % Seg Neutrophils # Seg Neutrophils # Man Lymphocytes # (Manual) Monocytes # (Manual) Eosinophils # (Manual) Basophils # (Manual) PT INR Fibrinogen dRVVT Confirm Interp Positive H Factor V Activity POC ABG pH POC ABG pCO2 POC ABG pO2 ABG pO2 ABG HCO3 ABG Base Excess ABG Hemoglobin Oxyhemoglobin Sodium Potassium Chloride Carbon Dioxide BUN Creatinine Glucose POC Glucose 224 H Lactic Acid Calcium Phosphorus Magnesium Direct Bilirubin AST ALT Alkaline Phosphatase Lactate Dehydrogenase Troponin T C-Reactive Protein 1.70 H Total Protein Albumin Prealbumin Triglycerides Cholesterol LDL Cholesterol Direct HDL Cholesterol Urine pH Urine WBC (Auto) Urine Creatinine Urine Total Protein Fluid Total Protein Vancomycin Trough Rheumatoid Factor Complement C4 Miscellaneous Test Crossmatch 09/12/16 09/12/16 09/13/16 16:51 23:28 04:00 WBC 45.0 H* RBC Hgb 9.4 L Hct MCV 75 L MCH 23 L MCHC RDW 19.0 H Plt Count 470 H Lymph % (Auto) [place] % (Auto) Lymph # [place] # Baso # Seg Neutrophils % Seg Neuts % (Manual) 89.0 H Lymphocytes % (Manual) 5.0 L Monocytes % (Manual) Eosinophils % (Manual) Basophils % (Manual) Nucleated RBC % Seg Neutrophils # Seg Neutrophils # Man 40.1 H Lymphocytes # (Manual) Monocytes # (Manual) Eosinophils # (Manual) Basophils # (Manual) PT INR Fibrinogen dRVVT Confirm Interp Factor V Activity POC ABG pH POC ABG pCO2 POC ABG pO2 ABG pO2 ABG HCO3 ABG Base Excess ABG Hemoglobin Oxyhemoglobin Sodium Potassium Chloride Carbon Dioxide BUN Creatinine Glucose POC Glucose 169 H 150 H Lactic Acid Calcium Phosphorus Magnesium Direct Bilirubin AST ALT Alkaline Phosphatase Lactate Dehydrogenase Troponin T C-Reactive Protein Total Protein Albumin Prealbumin Triglycerides Cholesterol LDL Cholesterol Direct HDL Cholesterol Urine pH Urine WBC (Auto) Urine Creatinine Urine Total Protein Fluid Total Protein Vancomycin Trough Rheumatoid Factor Complement C4 Miscellaneous Test Crossmatch 09/13/16 09/13/16 09/13/16 04:00 11:26 17:31 WBC RBC Hgb Hct MCV MCH MCHC RDW Plt Count Lymph % (Auto) [place] % (Auto) Lymph # [place] # Baso # Seg Neutrophils % Seg Neuts % (Manual) Lymphocytes % (Manual) Monocytes % (Manual) Eosinophils % (Manual) Basophils % (Manual) Nucleated RBC % Seg Neutrophils # Seg Neutrophils # Man Lymphocytes # (Manual) Monocytes # (Manual) Eosinophils # (Manual) Basophils # (Manual) PT INR Fibrinogen dRVVT Confirm Interp Factor V Activity POC ABG pH POC ABG pCO2 POC ABG pO2 ABG pO2 ABG HCO3 ABG Base Excess ABG Hemoglobin Oxyhemoglobin Sodium Potassium Chloride Carbon Dioxide 20 L BUN 116 H Creatinine 3.0 H Glucose 172 H POC Glucose 140 H 183 H Lactic Acid Calcium Phosphorus Magnesium Direct Bilirubin AST ALT Alkaline Phosphatase Lactate Dehydrogenase Troponin T C-Reactive Protein Total Protein 6.2 L Albumin 2.9 L Prealbumin Triglycerides Cholesterol LDL Cholesterol Direct HDL Cholesterol Urine pH Urine WBC (Auto) Urine Creatinine Urine Total Protein Fluid Total Protein Vancomycin Trough Rheumatoid Factor Complement C4 Miscellaneous Test Crossmatch 09/13/16 09/14/16 09/14/16 23:23 04:06 04:07 WBC 29.4 H RBC Hgb 8.9 L Hct 27.3 L MCV 75 L MCH 24 L MCHC RDW 19.1 H Plt Count Lymph % (Auto) [place] % (Auto) Lymph # [place] # Baso # Seg Neutrophils % Seg Neuts % (Manual) 84.0 H Lymphocytes % (Manual) 6.0 L Monocytes % (Manual) 9.0 H Eosinophils % (Manual) Basophils % (Manual) Nucleated RBC % Seg Neutrophils # Seg Neutrophils # Man 24.7 H Lymphocytes # (Manual) Monocytes # (Manual) 2.6 H Eosinophils # (Manual) Basophils # (Manual) PT INR Fibrinogen dRVVT Confirm Interp Factor V Activity POC ABG pH 7.342 L POC ABG pCO2 POC ABG pO2 116 H ABG pO2 ABG HCO3 ABG Base Excess ABG Hemoglobin Oxyhemoglobin Sodium Potassium Chloride Carbon Dioxide BUN Creatinine Glucose POC Glucose 154 H Lactic Acid Calcium Phosphorus Magnesium Direct Bilirubin AST ALT Alkaline Phosphatase Lactate Dehydrogenase Troponin T C-Reactive Protein Total Protein Albumin Prealbumin Triglycerides Cholesterol LDL Cholesterol Direct HDL Cholesterol Urine pH Urine WBC (Auto) Urine Creatinine Urine Total Protein Fluid Total Protein Vancomycin Trough Rheumatoid Factor Complement C4 Miscellaneous Test Crossmatch 09/14/16 09/14/16 09/14/16 04:07 05:29 12:19 WBC RBC Hgb Hct MCV MCH MCHC RDW Plt Count Lymph % (Auto) [place] % (Auto) Lymph # [place] # Baso # Seg Neutrophils % Seg Neuts % (Manual) Lymphocytes % (Manual) Monocytes % (Manual) Eosinophils % (Manual) Basophils % (Manual) Nucleated RBC % Seg Neutrophils # Seg Neutrophils # Man Lymphocytes # (Manual) Monocytes # (Manual) Eosinophils # (Manual) Basophils # (Manual) PT INR Fibrinogen dRVVT Confirm Interp Factor V Activity POC ABG pH POC ABG pCO2 POC ABG pO2 ABG pO2 ABG HCO3 ABG Base Excess ABG Hemoglobin Oxyhemoglobin Sodium 136 L Potassium Chloride Carbon Dioxide 18 L BUN 121 H Creatinine 2.8 H Glucose 214 H POC Glucose 239 H 181 H Lactic Acid Calcium Phosphorus Magnesium Direct Bilirubin AST ALT Alkaline Phosphatase Lactate Dehydrogenase Troponin T C-Reactive Protein Total Protein Albumin Prealbumin Triglycerides Cholesterol LDL Cholesterol Direct HDL Cholesterol Urine pH Urine WBC (Auto) Urine Creatinine Urine Total Protein Fluid Total Protein Vancomycin Trough Rheumatoid Factor Complement C4 Miscellaneous Test Crossmatch 09/14/16 09/14/16 09/15/16 18:12 23:37 05:00 WBC 26.1 H RBC 3.05 L Hgb 7.2 L Hct 22.9 L MCV 75 L MCH 24 L MCHC RDW 19.0 H Plt Count Lymph % (Auto) [place] % (Auto) Lymph # [place] # Baso # Seg Neutrophils % Seg Neuts % (Manual) Lymphocytes % (Manual) Monocytes % (Manual) Eosinophils % (Manual) Basophils % (Manual) Nucleated RBC % Seg Neutrophils # Seg Neutrophils # Man Lymphocytes # (Manual) Monocytes # (Manual) Eosinophils # (Manual) Basophils # (Manual) PT INR Fibrinogen dRVVT Confirm Interp Factor V Activity POC ABG pH POC ABG pCO2 POC ABG pO2 ABG pO2 ABG HCO3 ABG Base Excess ABG Hemoglobin Oxyhemoglobin Sodium Potassium Chloride Carbon Dioxide BUN Creatinine Glucose POC Glucose 266 H 154 H Lactic Acid Calcium Phosphorus Magnesium Direct Bilirubin AST ALT Alkaline Phosphatase Lactate Dehydrogenase Troponin T C-Reactive Protein Total Protein Albumin Prealbumin Triglycerides Cholesterol LDL Cholesterol Direct HDL Cholesterol Urine pH Urine WBC (Auto) Urine Creatinine Urine Total Protein Fluid Total Protein Vancomycin Trough Rheumatoid Factor Complement C4 Miscellaneous Test Crossmatch 09/15/16 09/15/16 09/15/16 05:00 05:17 12:45 WBC RBC Hgb Hct MCV MCH MCHC RDW Plt Count Lymph % (Auto) [place] % (Auto) Lymph # [place] # Baso # Seg Neutrophils % Seg Neuts % (Manual) Lymphocytes % (Manual) Monocytes % (Manual) Eosinophils % (Manual) Basophils % (Manual) Nucleated RBC % Seg Neutrophils # Seg Neutrophils # Man Lymphocytes # (Manual) Monocytes # (Manual) Eosinophils # (Manual) Basophils # (Manual) PT INR Fibrinogen dRVVT Confirm Interp Factor V Activity POC ABG pH POC ABG pCO2 POC ABG pO2 ABG pO2 ABG HCO3 ABG Base Excess ABG Hemoglobin Oxyhemoglobin Sodium Potassium 5.2 H Chloride Carbon Dioxide 18 L BUN 139 H Creatinine 3.7 H Glucose 227 H POC Glucose 226 H 244 H Lactic Acid Calcium 8.3 L Phosphorus Magnesium Direct Bilirubin AST ALT Alkaline Phosphatase Lactate Dehydrogenase Troponin T C-Reactive Protein Total Protein Albumin Prealbumin Triglycerides Cholesterol LDL Cholesterol Direct HDL Cholesterol Urine pH Urine WBC (Auto) Urine Creatinine Urine Total Protein Fluid Total Protein Vancomycin Trough Rheumatoid Factor Complement C4 Miscellaneous Test Crossmatch 09/15/16 09/15/16 09/15/16 14:32 17:33 23:35 WBC RBC Hgb Hct MCV MCH MCHC RDW Plt Count Lymph % (Auto) [place] % (Auto) Lymph # [place] # Baso # Seg Neutrophils % Seg Neuts % (Manual) Lymphocytes % (Manual) Monocytes % (Manual) Eosinophils % (Manual) Basophils % (Manual) Nucleated RBC % Seg Neutrophils # Seg Neutrophils # Man Lymphocytes # (Manual) Monocytes # (Manual) Eosinophils # (Manual) Basophils # (Manual) PT INR Fibrinogen dRVVT Confirm Interp Factor V Activity POC ABG pH POC ABG pCO2 27.7 L POC ABG pO2 120 H ABG pO2 ABG HCO3 ABG Base Excess ABG Hemoglobin Oxyhemoglobin Sodium Potassium Chloride Carbon Dioxide BUN Creatinine Glucose POC Glucose 232 H 167 H Lactic Acid Calcium Phosphorus Magnesium Direct Bilirubin AST ALT Alkaline Phosphatase Lactate Dehydrogenase Troponin T C-Reactive Protein Total Protein Albumin Prealbumin Triglycerides Cholesterol LDL Cholesterol Direct HDL Cholesterol Urine pH Urine WBC (Auto) Urine Creatinine Urine Total Protein Fluid Total Protein Vancomycin Trough Rheumatoid Factor Complement C4 Miscellaneous Test Crossmatch 09/16/16 09/16/16 09/16/16 03:58 10:27 10:27 WBC 19.0 H RBC 2.77 L Hgb 6.5 L Hct 20.9 L MCV 76 L MCH 23 L MCHC RDW 19.3 H Plt Count Lymph % (Auto) 11.0 L [place] % (Auto) Lymph # [place] # 1.1 H Baso # Seg Neutrophils % 82.5 H Seg Neuts % (Manual) Lymphocytes % (Manual) Monocytes % (Manual) Eosinophils % (Manual) Basophils % (Manual) Nucleated RBC % Seg Neutrophils # 15.7 H Seg Neutrophils # Man Lymphocytes # (Manual) Monocytes # (Manual) Eosinophils # (Manual) Basophils # (Manual) PT INR Fibrinogen dRVVT Confirm Interp Factor V Activity POC ABG pH POC ABG pCO2 POC ABG pO2 ABG pO2 ABG HCO3 ABG Base Excess ABG Hemoglobin Oxyhemoglobin Sodium Potassium Chloride 109.3 H Carbon Dioxide 18 L BUN 139 H Creatinine 4.1 H Glucose 144 H POC Glucose 146 H Lactic Acid Calcium 8.1 L Phosphorus Magnesium Direct Bilirubin AST ALT Alkaline Phosphatase Lactate Dehydrogenase Troponin T C-Reactive Protein Total Protein Albumin Prealbumin Triglycerides Cholesterol LDL Cholesterol Direct HDL Cholesterol Urine pH Urine WBC (Auto) Urine Creatinine Urine Total Protein Fluid Total Protein Vancomycin Trough Rheumatoid Factor Complement C4 Miscellaneous Test Crossmatch 09/16/16 09/16/16 09/16/16 12:04 12:10 13:55 WBC RBC Hgb Hct MCV MCH MCHC RDW Plt Count Lymph % (Auto) [place] % (Auto) Lymph # [place] # Baso # Seg Neutrophils % Seg Neuts % (Manual) Lymphocytes % (Manual) Monocytes % (Manual) Eosinophils % (Manual) Basophils % (Manual) Nucleated RBC % Seg Neutrophils # Seg Neutrophils # Man Lymphocytes # (Manual) Monocytes # (Manual) Eosinophils # (Manual) Basophils # (Manual) PT INR Fibrinogen dRVVT Confirm Interp Factor V Activity POC ABG pH POC ABG pCO2 32.9 L POC ABG pO2 ABG pO2 ABG HCO3 ABG Base Excess ABG Hemoglobin Oxyhemoglobin Sodium Potassium Chloride Carbon Dioxide BUN Creatinine Glucose POC Glucose 185 H Lactic Acid Calcium Phosphorus Magnesium Direct Bilirubin AST ALT Alkaline Phosphatase Lactate Dehydrogenase Troponin T C-Reactive Protein Total Protein Albumin Prealbumin Triglycerides Cholesterol LDL Cholesterol Direct HDL Cholesterol Urine pH Urine WBC (Auto) Urine Creatinine Urine Total Protein Fluid Total Protein Vancomycin Trough Rheumatoid Factor Complement C4 Miscellaneous Test Crossmatch See Detail 09/16/16 09/16/16 09/16/16 17:55 19:19 23:48 WBC RBC Hgb Hct MCV MCH MCHC RDW Plt Count Lymph % (Auto) [place] % (Auto) Lymph # [place] # Baso # Seg Neutrophils % Seg Neuts % (Manual) Lymphocytes % (Manual) Monocytes % (Manual) Eosinophils % (Manual) Basophils % (Manual) Nucleated RBC % Seg Neutrophils # Seg Neutrophils # Man Lymphocytes # (Manual) Monocytes # (Manual) Eosinophils # (Manual) Basophils # (Manual) PT INR Fibrinogen dRVVT Confirm Interp Factor V Activity POC ABG pH POC ABG pCO2 POC ABG pO2 ABG pO2 ABG HCO3 ABG Base Excess ABG Hemoglobin Oxyhemoglobin Sodium Potassium Chloride Carbon Dioxide BUN Creatinine Glucose POC Glucose 222 H 107 H Lactic Acid Calcium Phosphorus Magnesium Direct Bilirubin AST ALT Alkaline Phosphatase Lactate Dehydrogenase Troponin T C-Reactive Protein Total Protein Albumin Prealbumin Triglycerides Cholesterol LDL Cholesterol Direct HDL Cholesterol Urine pH Urine WBC (Auto) Urine Creatinine 47.4 H Urine Total Protein 16 H Fluid Total Protein Vancomycin Trough Rheumatoid Factor Complement C4 Miscellaneous Test Crossmatch 09/17/16 09/17/16 09/17/16 03:45 03:45 04:55 WBC 19.6 H RBC 3.41 L Hgb 8.5 L Hct 26.7 L MCV 78 L MCH 25 L MCHC RDW 19.9 H Plt Count Lymph % (Auto) 9.3 L [place] % (Auto) Lymph # [place] # 1.2 H Baso # Seg Neutrophils % 83.9 H Seg Neuts % (Manual) Lymphocytes % (Manual) Monocytes % (Manual) Eosinophils % (Manual) Basophils % (Manual) Nucleated RBC % Seg Neutrophils # 16.4 H Seg Neutrophils # Man Lymphocytes # (Manual) Monocytes # (Manual) Eosinophils # (Manual) Basophils # (Manual) PT INR Fibrinogen dRVVT Confirm Interp Factor V Activity POC ABG pH POC ABG pCO2 POC ABG pO2 ABG pO2 ABG HCO3 ABG Base Excess ABG Hemoglobin Oxyhemoglobin Sodium 146 H Potassium 5.1 H Chloride 110.9 H Carbon Dioxide 16 L BUN 146 H Creatinine 4.0 H Glucose 108 H POC Glucose 133 H Lactic Acid Calcium Phosphorus Magnesium 3.00 H Direct Bilirubin AST ALT Alkaline Phosphatase Lactate Dehydrogenase Troponin T C-Reactive Protein Total Protein Albumin Prealbumin Triglycerides Cholesterol LDL Cholesterol Direct HDL Cholesterol Urine pH Urine WBC (Auto) Urine Creatinine Urine Total Protein Fluid Total Protein Vancomycin Trough Rheumatoid Factor Complement C4 Miscellaneous Test Crossmatch 09/17/16 09/17/16 09/17/16 11:15 17:33 23:47 WBC RBC Hgb Hct MCV MCH MCHC RDW Plt Count Lymph % (Auto) [place] % (Auto) Lymph # [place] # Baso # Seg Neutrophils % Seg Neuts % (Manual) Lymphocytes % (Manual) Monocytes % (Manual) Eosinophils % (Manual) Basophils % (Manual) Nucleated RBC % Seg Neutrophils # Seg Neutrophils # Man Lymphocytes # (Manual) Monocytes # (Manual) Eosinophils # (Manual) Basophils # (Manual) PT INR Fibrinogen dRVVT Confirm Interp Factor V Activity POC ABG pH POC ABG pCO2 POC ABG pO2 ABG pO2 ABG HCO3 ABG Base Excess ABG Hemoglobin Oxyhemoglobin Sodium Potassium Chloride Carbon Dioxide BUN Creatinine Glucose POC Glucose 176 H 246 H 148 H Lactic Acid Calcium Phosphorus Magnesium Direct Bilirubin AST ALT Alkaline Phosphatase Lactate Dehydrogenase Troponin T C-Reactive Protein Total Protein Albumin Prealbumin Triglycerides Cholesterol LDL Cholesterol Direct HDL Cholesterol Urine pH Urine WBC (Auto) Urine Creatinine Urine Total Protein Fluid Total Protein Vancomycin Trough Rheumatoid Factor Complement C4 Miscellaneous Test Crossmatch 09/18/16 09/18/16 09/18/16 05:33 08:31 08:31 WBC 18.0 H RBC 3.17 L Hgb 9.0 L Hct 25.7 L MCV MCH MCHC 35 H RDW 20.4 H Plt Count Lymph % (Auto) [place] % (Auto) Lymph # [place] # Baso # Seg Neutrophils % Seg Neuts % (Manual) Lymphocytes % (Manual) Monocytes % (Manual) Eosinophils % (Manual) Basophils % (Manual) Nucleated RBC % Seg Neutrophils # Seg Neutrophils # Man Lymphocytes # (Manual) Monocytes # (Manual) Eosinophils # (Manual) Basophils # (Manual) PT INR Fibrinogen dRVVT Confirm Interp Factor V Activity POC ABG pH POC ABG pCO2 POC ABG pO2 ABG pO2 ABG HCO3 ABG Base Excess ABG Hemoglobin Oxyhemoglobin Sodium Potassium Chloride Carbon Dioxide 15 L BUN 124 H Creatinine 3.8 H Glucose POC Glucose 120 H Lactic Acid Calcium 8.1 L Phosphorus Magnesium Direct Bilirubin AST ALT Alkaline Phosphatase Lactate Dehydrogenase Troponin T C-Reactive Protein Total Protein Albumin Prealbumin Triglycerides Cholesterol LDL Cholesterol Direct HDL Cholesterol Urine pH Urine WBC (Auto) Urine Creatinine Urine Total Protein Fluid Total Protein Vancomycin Trough Rheumatoid Factor Complement C4 Miscellaneous Test Crossmatch 09/18/16 09/18/16 09/18/16 12:03 15:34 17:50 WBC RBC Hgb Hct MCV MCH MCHC RDW Plt Count Lymph % (Auto) [place] % (Auto) Lymph # [place] # Baso # Seg Neutrophils % Seg Neuts % (Manual) Lymphocytes % (Manual) Monocytes % (Manual) Eosinophils % (Manual) Basophils % (Manual) Nucleated RBC % Seg Neutrophils # Seg Neutrophils # Man Lymphocytes # (Manual) Monocytes # (Manual) Eosinophils # (Manual) Basophils # (Manual) PT INR Fibrinogen dRVVT Confirm Interp Factor V Activity POC ABG pH POC ABG pCO2 25.7 L POC ABG pO2 66 L ABG pO2 ABG HCO3 ABG Base Excess ABG Hemoglobin Oxyhemoglobin Sodium Potassium Chloride Carbon Dioxide BUN Creatinine Glucose POC Glucose 156 H 220 H Lactic Acid Calcium Phosphorus Magnesium Direct Bilirubin AST ALT Alkaline Phosphatase Lactate Dehydrogenase Troponin T C-Reactive Protein Total Protein Albumin Prealbumin Triglycerides Cholesterol LDL Cholesterol Direct HDL Cholesterol Urine pH Urine WBC (Auto) Urine Creatinine Urine Total Protein Fluid Total Protein Vancomycin Trough Rheumatoid Factor Complement C4 Miscellaneous Test Crossmatch 09/19/16 09/19/16 09/19/16 06:21 09:50 09:50 WBC 17.1 H RBC 3.49 L Hgb 9.0 L Hct 28.1 L MCV MCH 26 L MCHC RDW 20.8 H Plt Count Lymph % (Auto) 11.5 L [place] % (Auto) 7.5 H Lymph # [place] # 1.3 H Baso # Seg Neutrophils % 79.8 H Seg Neuts % (Manual) Lymphocytes % (Manual) Monocytes % (Manual) Eosinophils % (Manual) Basophils % (Manual) Nucleated RBC % Seg Neutrophils # 13.7 H Seg Neutrophils # Man Lymphocytes # (Manual) Monocytes # (Manual) Eosinophils # (Manual) Basophils # (Manual) PT INR Fibrinogen dRVVT Confirm Interp Factor V Activity POC ABG pH POC ABG pCO2 POC ABG pO2 ABG pO2 ABG HCO3 ABG Base Excess ABG Hemoglobin Oxyhemoglobin Sodium Potassium Chloride 108.6 H Carbon Dioxide 15 L BUN 125 H Creatinine 4.1 H Glucose 124 H POC Glucose 119 H Lactic Acid Calcium Phosphorus Magnesium Direct Bilirubin AST ALT Alkaline Phosphatase Lactate Dehydrogenase Troponin T C-Reactive Protein Total Protein Albumin Prealbumin Triglycerides Cholesterol LDL Cholesterol Direct HDL Cholesterol Urine pH Urine WBC (Auto) Urine Creatinine Urine Total Protein Fluid Total Protein Vancomycin Trough Rheumatoid Factor Complement C4 Miscellaneous Test Crossmatch 09/19/16 09/19/16 09/19/16 11:25 17:53 23:36 WBC RBC Hgb Hct MCV MCH MCHC RDW Plt Count Lymph % (Auto) [place] % (Auto) Lymph # [place] # Baso # Seg Neutrophils % Seg Neuts % (Manual) Lymphocytes % (Manual) Monocytes % (Manual) Eosinophils % (Manual) Basophils % (Manual) Nucleated RBC % Seg Neutrophils # Seg Neutrophils # Man Lymphocytes # (Manual) Monocytes # (Manual) Eosinophils # (Manual) Basophils # (Manual) PT INR Fibrinogen dRVVT Confirm Interp Factor V Activity POC ABG pH POC ABG pCO2 POC ABG pO2 ABG pO2 ABG HCO3 ABG Base Excess ABG Hemoglobin Oxyhemoglobin Sodium Potassium Chloride Carbon Dioxide BUN Creatinine Glucose POC Glucose 160 H 245 H 121 H Lactic Acid Calcium Phosphorus Magnesium Direct Bilirubin AST ALT Alkaline Phosphatase Lactate Dehydrogenase Troponin T C-Reactive Protein Total Protein Albumin Prealbumin Triglycerides Cholesterol LDL Cholesterol Direct HDL Cholesterol Urine pH Urine WBC (Auto) Urine Creatinine Urine Total Protein Fluid Total Protein Vancomycin Trough Rheumatoid Factor Complement C4 Miscellaneous Test Crossmatch 09/20/16 09/20/16 09/20/16 04:10 04:10 04:10 WBC 17.0 H RBC 3.21 L Hgb 8.2 L Hct 25.5 L MCV MCH 26 L MCHC RDW 20.9 H Plt Count Lymph % (Auto) [place] % (Auto) Lymph # [place] # Baso # Seg Neutrophils % Seg Neuts % (Manual) Lymphocytes % (Manual) Monocytes % (Manual) Eosinophils % (Manual) Basophils % (Manual) Nucleated RBC % Seg Neutrophils # Seg Neutrophils # Man Lymphocytes # (Manual) Monocytes # (Manual) Eosinophils # (Manual) Basophils # (Manual) PT INR Fibrinogen dRVVT Confirm Interp Factor V Activity POC ABG pH POC ABG pCO2 POC ABG pO2 ABG pO2 ABG HCO3 ABG Base Excess ABG Hemoglobin Oxyhemoglobin Sodium Potassium Chloride 111.0 H Carbon Dioxide 16 L BUN 129 H Creatinine 3.7 H Glucose 115 H POC Glucose Lactic Acid Calcium 8.2 L Phosphorus Magnesium Direct Bilirubin AST ALT Alkaline Phosphatase Lactate Dehydrogenase Troponin T C-Reactive Protein Total Protein Albumin Prealbumin Triglycerides 243 H Cholesterol LDL Cholesterol Direct HDL Cholesterol Urine pH Urine WBC (Auto) Urine Creatinine Urine Total Protein Fluid Total Protein Vancomycin Trough Rheumatoid Factor Complement C4 Miscellaneous Test Crossmatch 09/20/16 09/20/16 09/20/16 05:40 11:52 16:50 WBC RBC Hgb Hct MCV MCH MCHC RDW Plt Count Lymph % (Auto) [place] % (Auto) Lymph # [place] # Baso # Seg Neutrophils % Seg Neuts % (Manual) Lymphocytes % (Manual) Monocytes % (Manual) Eosinophils % (Manual) Basophils % (Manual) Nucleated RBC % Seg Neutrophils # Seg Neutrophils # Man Lymphocytes # (Manual) Monocytes # (Manual) Eosinophils # (Manual) Basophils # (Manual) PT INR Fibrinogen dRVVT Confirm Interp Factor V Activity POC ABG pH POC ABG pCO2 POC ABG pO2 ABG pO2 ABG HCO3 ABG Base Excess ABG Hemoglobin Oxyhemoglobin Sodium Potassium Chloride Carbon Dioxide BUN Creatinine Glucose POC Glucose 131 H 183 H 236 H Lactic Acid Calcium Phosphorus Magnesium Direct Bilirubin AST ALT Alkaline Phosphatase Lactate Dehydrogenase Troponin T C-Reactive Protein Total Protein Albumin Prealbumin Triglycerides Cholesterol LDL Cholesterol Direct HDL Cholesterol Urine pH Urine WBC (Auto) Urine Creatinine Urine Total Protein Fluid Total Protein Vancomycin Trough Rheumatoid Factor Complement C4 Miscellaneous Test Crossmatch 09/20/16 09/21/16 09/21/16 23:51 03:30 04:44 WBC RBC Hgb Hct MCV MCH MCHC RDW Plt Count Lymph % (Auto) [place] % (Auto) Lymph # [place] # Baso # Seg Neutrophils % Seg Neuts % (Manual) Lymphocytes % (Manual) Monocytes % (Manual) Eosinophils % (Manual) Basophils % (Manual) Nucleated RBC % Seg Neutrophils # Seg Neutrophils # Man Lymphocytes # (Manual) Monocytes # (Manual) Eosinophils # (Manual) Basophils # (Manual) PT INR Fibrinogen dRVVT Confirm Interp Factor V Activity POC ABG pH POC ABG pCO2 POC ABG pO2 ABG pO2 ABG HCO3 ABG Base Excess ABG Hemoglobin Oxyhemoglobin Sodium Potassium Chloride Carbon Dioxide BUN Creatinine Glucose POC Glucose 114 H 141 H Lactic Acid Calcium Phosphorus Magnesium 2.70 H Direct Bilirubin AST ALT Alkaline Phosphatase Lactate Dehydrogenase Troponin T C-Reactive Protein Total Protein Albumin Prealbumin Triglycerides Cholesterol LDL Cholesterol Direct HDL Cholesterol Urine pH Urine WBC (Auto) Urine Creatinine Urine Total Protein Fluid Total Protein Vancomycin Trough Rheumatoid Factor Complement C4 Miscellaneous Test Crossmatch 09/21/16 09/21/16 09/21/16 07:45 07:45 10:01 WBC 13.8 H RBC 2.94 L Hgb 7.5 L Hct 23.5 L MCV MCH 26 L MCHC RDW 21.2 H Plt Count Lymph % (Auto) 6.9 L [place] % (Auto) 9.4 H Lymph # 0.9 L [place] # 1.3 H Baso # Seg Neutrophils % 83.2 H Seg Neuts % (Manual) Lymphocytes % (Manual) Monocytes % (Manual) Eosinophils % (Manual) Basophils % (Manual) Nucleated RBC % Seg Neutrophils # 11.5 H Seg Neutrophils # Man Lymphocytes # (Manual) Monocytes # (Manual) Eosinophils # (Manual) Basophils # (Manual) PT INR Fibrinogen dRVVT Confirm Interp Factor V Activity POC ABG pH 7.308 L POC ABG pCO2 31.9 L POC ABG pO2 148 H ABG pO2 ABG HCO3 ABG Base Excess ABG Hemoglobin Oxyhemoglobin Sodium 147 H Potassium Chloride 114.2 H Carbon Dioxide 15 L BUN 120 H Creatinine 3.9 H Glucose 156 H POC Glucose Lactic Acid Calcium 8.2 L Phosphorus Magnesium Direct Bilirubin AST ALT Alkaline Phosphatase Lactate Dehydrogenase Troponin T C-Reactive Protein Total Protein Albumin Prealbumin Triglycerides Cholesterol LDL Cholesterol Direct HDL Cholesterol Urine pH Urine WBC (Auto) Urine Creatinine Urine Total Protein Fluid Total Protein Vancomycin Trough Rheumatoid Factor Complement C4 Miscellaneous Test Crossmatch 09/21/16 09/21/16 09/21/16 12:00 12:03 13:00 WBC RBC Hgb Hct MCV MCH MCHC RDW Plt Count Lymph % (Auto) [place] % (Auto) Lymph # [place] # Baso # Seg Neutrophils % Seg Neuts % (Manual) Lymphocytes % (Manual) Monocytes % (Manual) Eosinophils % (Manual) Basophils % (Manual) Nucleated RBC % Seg Neutrophils # Seg Neutrophils # Man Lymphocytes # (Manual) Monocytes # (Manual) Eosinophils # (Manual) Basophils # (Manual) PT INR Fibrinogen dRVVT Confirm Interp Factor V Activity POC ABG pH POC ABG pCO2 POC ABG pO2 ABG pO2 ABG HCO3 ABG Base Excess ABG Hemoglobin Oxyhemoglobin Sodium Potassium Chloride Carbon Dioxide BUN Creatinine Glucose POC Glucose 163 H Lactic Acid Calcium Phosphorus Magnesium Direct Bilirubin AST ALT Alkaline Phosphatase Lactate Dehydrogenase Troponin T C-Reactive Protein Total Protein Albumin Prealbumin Triglycerides Cholesterol LDL Cholesterol Direct HDL Cholesterol Urine pH Urine WBC (Auto) Urine Creatinine 54.8 H Urine Total Protein Fluid Total Protein Vancomycin Trough 2.3 L Rheumatoid Factor Complement C4 Miscellaneous Test Crossmatch 09/21/16 09/21/16 09/22/16 16:51 23:17 06:27 WBC RBC Hgb Hct MCV MCH MCHC RDW Plt Count Lymph % (Auto) [place] % (Auto) Lymph # [place] # Baso # Seg Neutrophils % Seg Neuts % (Manual) Lymphocytes % (Manual) Monocytes % (Manual) Eosinophils % (Manual) Basophils % (Manual) Nucleated RBC % Seg Neutrophils # Seg Neutrophils # Man Lymphocytes # (Manual) Monocytes # (Manual) Eosinophils # (Manual) Basophils # (Manual) PT INR Fibrinogen dRVVT Confirm Interp Factor V Activity POC ABG pH POC ABG pCO2 POC ABG pO2 ABG pO2 ABG HCO3 ABG Base Excess ABG Hemoglobin Oxyhemoglobin Sodium Potassium Chloride Carbon Dioxide BUN Creatinine Glucose POC Glucose 206 H 114 H 115 H Lactic Acid Calcium Phosphorus Magnesium Direct Bilirubin AST ALT Alkaline Phosphatase Lactate Dehydrogenase Troponin T C-Reactive Protein Total Protein Albumin Prealbumin Triglycerides Cholesterol LDL Cholesterol Direct HDL Cholesterol Urine pH Urine WBC (Auto) Urine Creatinine Urine Total Protein Fluid Total Protein Vancomycin Trough Rheumatoid Factor Complement C4 Miscellaneous Test Crossmatch 09/22/16 09/22/16 09/22/16 07:50 07:50 12:00 WBC 17.8 H RBC 3.04 L Hgb 8.0 L Hct 24.7 L MCV MCH 26 L MCHC RDW 21.6 H Plt Count Lymph % (Auto) [place] % (Auto) Lymph # [place] # Baso # Seg Neutrophils % Seg Neuts % (Manual) Lymphocytes % (Manual) Monocytes % (Manual) Eosinophils % (Manual) Basophils % (Manual) Nucleated RBC % Seg Neutrophils # Seg Neutrophils # Man Lymphocytes # (Manual) Monocytes # (Manual) Eosinophils # (Manual) Basophils # (Manual) PT INR Fibrinogen dRVVT Confirm Interp Factor V Activity POC ABG pH POC ABG pCO2 POC ABG pO2 ABG pO2 ABG HCO3 ABG Base Excess ABG Hemoglobin Oxyhemoglobin Sodium 150 H Potassium Chloride 118.2 H Carbon Dioxide 14 L BUN 111 H Creatinine 3.7 H Glucose 157 H POC Glucose 183 H Lactic Acid Calcium Phosphorus Magnesium Direct Bilirubin AST ALT Alkaline Phosphatase Lactate Dehydrogenase Troponin T C-Reactive Protein Total Protein Albumin Prealbumin Triglycerides Cholesterol LDL Cholesterol Direct HDL Cholesterol Urine pH Urine WBC (Auto) Urine Creatinine Urine Total Protein Fluid Total Protein Vancomycin Trough Rheumatoid Factor Complement C4 Miscellaneous Test Crossmatch 09/22/16 09/22/16 09/23/16 17:29 23:10 05:00 WBC 19.2 H RBC 3.13 L Hgb 8.0 L Hct 25.2 L MCV MCH 26 L MCHC RDW 22.1 H Plt Count Lymph % (Auto) [place] % (Auto) Lymph # [place] # Baso # Seg Neutrophils % Seg Neuts % (Manual) 92.0 H Lymphocytes % (Manual) 3.0 L Monocytes % (Manual) Eosinophils % (Manual) Basophils % (Manual) Nucleated RBC % Seg Neutrophils # Seg Neutrophils # Man 17.7 H Lymphocytes # (Manual) 0.6 L Monocytes # (Manual) Eosinophils # (Manual) Basophils # (Manual) PT INR Fibrinogen dRVVT Confirm Interp Factor V Activity POC ABG pH POC ABG pCO2 POC ABG pO2 ABG pO2 ABG HCO3 ABG Base Excess ABG Hemoglobin Oxyhemoglobin Sodium Potassium Chloride Carbon Dioxide BUN Creatinine Glucose POC Glucose 197 H 169 H Lactic Acid Calcium Phosphorus Magnesium Direct Bilirubin AST ALT Alkaline Phosphatase Lactate Dehydrogenase Troponin T C-Reactive Protein Total Protein Albumin Prealbumin Triglycerides Cholesterol LDL Cholesterol Direct HDL Cholesterol Urine pH Urine WBC (Auto) Urine Creatinine Urine Total Protein Fluid Total Protein Vancomycin Trough Rheumatoid Factor Complement C4 Miscellaneous Test Crossmatch 09/23/16 09/23/16 09/23/16 05:00 05:00 05:10 WBC RBC Hgb Hct MCV MCH MCHC RDW Plt Count Lymph % (Auto) [place] % (Auto) Lymph # [place] # Baso # Seg Neutrophils % Seg Neuts % (Manual) Lymphocytes % (Manual) Monocytes % (Manual) Eosinophils % (Manual) Basophils % (Manual) Nucleated RBC % Seg Neutrophils # Seg Neutrophils # Man Lymphocytes # (Manual) Monocytes # (Manual) Eosinophils # (Manual) Basophils # (Manual) PT INR Fibrinogen dRVVT Confirm Interp Factor V Activity POC ABG pH POC ABG pCO2 POC ABG pO2 ABG pO2 ABG HCO3 ABG Base Excess ABG Hemoglobin Oxyhemoglobin Sodium 147 H Potassium 3.2 L Chloride 115.7 H Carbon Dioxide 13 L BUN 111 H Creatinine 3.8 H Glucose 194 H POC Glucose 188 H Lactic Acid Calcium 7.3 L D Phosphorus Magnesium Direct Bilirubin AST ALT Alkaline Phosphatase Lactate Dehydrogenase Troponin T C-Reactive Protein 3.20 H Total Protein Albumin Prealbumin Triglycerides Cholesterol LDL Cholesterol Direct HDL Cholesterol Urine pH Urine WBC (Auto) Urine Creatinine Urine Total Protein Fluid Total Protein Vancomycin Trough Rheumatoid Factor Complement C4 Miscellaneous Test Crossmatch 09/23/16 09/23/16 09/23/16 11:37 12:29 18:01 WBC RBC Hgb Hct MCV MCH MCHC RDW Plt Count Lymph % (Auto) [place] % (Auto) Lymph # [place] # Baso # Seg Neutrophils % Seg Neuts % (Manual) Lymphocytes % (Manual) Monocytes % (Manual) Eosinophils % (Manual) Basophils % (Manual) Nucleated RBC % Seg Neutrophils # Seg Neutrophils # Man Lymphocytes # (Manual) Monocytes # (Manual) Eosinophils # (Manual) Basophils # (Manual) PT INR Fibrinogen dRVVT Confirm Interp Factor V Activity POC ABG pH POC ABG pCO2 18.9 L POC ABG pO2 143 H ABG pO2 ABG HCO3 ABG Base Excess ABG Hemoglobin Oxyhemoglobin Sodium Potassium Chloride Carbon Dioxide BUN Creatinine Glucose POC Glucose 153 H 108 H Lactic Acid Calcium Phosphorus Magnesium Direct Bilirubin AST ALT Alkaline Phosphatase Lactate Dehydrogenase Troponin T C-Reactive Protein Total Protein Albumin Prealbumin Triglycerides Cholesterol LDL Cholesterol Direct HDL Cholesterol Urine pH Urine WBC (Auto) Urine Creatinine Urine Total Protein Fluid Total Protein Vancomycin Trough Rheumatoid Factor Complement C4 Miscellaneous Test Crossmatch 09/23/16 09/23/16 09/24/16 21:19 23:43 05:16 WBC RBC Hgb Hct MCV MCH MCHC RDW Plt Count Lymph % (Auto) [place] % (Auto) Lymph # [place] # Baso # Seg Neutrophils % Seg Neuts % (Manual) Lymphocytes % (Manual) Monocytes % (Manual) Eosinophils % (Manual) Basophils % (Manual) Nucleated RBC % Seg Neutrophils # Seg Neutrophils # Man Lymphocytes # (Manual) Monocytes # (Manual) Eosinophils # (Manual) Basophils # (Manual) PT INR Fibrinogen dRVVT Confirm Interp Factor V Activity POC ABG pH POC ABG pCO2 17.3 L POC ABG pO2 112 H ABG pO2 ABG HCO3 ABG Base Excess ABG Hemoglobin Oxyhemoglobin Sodium Potassium Chloride Carbon Dioxide BUN Creatinine Glucose POC Glucose 143 H 164 H Lactic Acid Calcium Phosphorus Magnesium Direct Bilirubin AST ALT Alkaline Phosphatase Lactate Dehydrogenase Troponin T C-Reactive Protein Total Protein Albumin Prealbumin Triglycerides Cholesterol LDL Cholesterol Direct HDL Cholesterol Urine pH Urine WBC (Auto) Urine Creatinine Urine Total Protein Fluid Total Protein Vancomycin Trough Rheumatoid Factor Complement C4 Miscellaneous Test Crossmatch 09/24/16 09/24/16 09/24/16 05:21 11:58 17:06 WBC RBC Hgb Hct MCV MCH MCHC RDW Plt Count Lymph % (Auto) [place] % (Auto) Lymph # [place] # Baso # Seg Neutrophils % Seg Neuts % (Manual) Lymphocytes % (Manual) Monocytes % (Manual) Eosinophils % (Manual) Basophils % (Manual) Nucleated RBC % Seg Neutrophils # Seg Neutrophils # Man Lymphocytes # (Manual) Monocytes # (Manual) Eosinophils # (Manual) Basophils # (Manual) PT INR Fibrinogen dRVVT Confirm Interp Factor V Activity POC ABG pH POC ABG pCO2 POC ABG pO2 ABG pO2 ABG HCO3 ABG Base Excess ABG Hemoglobin Oxyhemoglobin Sodium Potassium Chloride Carbon Dioxide 10 L BUN 103 H Creatinine 4.3 H Glucose 163 H POC Glucose 173 H 167 H Lactic Acid Calcium 6.5 L Phosphorus Magnesium Direct Bilirubin AST ALT Alkaline Phosphatase Lactate Dehydrogenase Troponin T C-Reactive Protein Total Protein Albumin Prealbumin Triglycerides Cholesterol LDL Cholesterol Direct HDL Cholesterol Urine pH Urine WBC (Auto) Urine Creatinine Urine Total Protein Fluid Total Protein Vancomycin Trough Rheumatoid Factor Complement C4 Miscellaneous Test Crossmatch 09/24/16 09/24/16 09/24/16 20:15 21:02 23:48 WBC RBC Hgb Hct MCV MCH MCHC RDW Plt Count Lymph % (Auto) [place] % (Auto) Lymph # [place] # Baso # Seg Neutrophils % Seg Neuts % (Manual) Lymphocytes % (Manual) Monocytes % (Manual) Eosinophils % (Manual) Basophils % (Manual) Nucleated RBC % Seg Neutrophils # Seg Neutrophils # Man Lymphocytes # (Manual) Monocytes # (Manual) Eosinophils # (Manual) Basophils # (Manual) PT INR Fibrinogen dRVVT Confirm Interp Factor V Activity POC ABG pH 7.288 L POC ABG pCO2 30.2 L 21.5 L POC ABG pO2 32 L 39 L ABG pO2 ABG HCO3 ABG Base Excess ABG Hemoglobin Oxyhemoglobin Sodium Potassium Chloride Carbon Dioxide BUN Creatinine Glucose POC Glucose 109 H Lactic Acid Calcium Phosphorus Magnesium Direct Bilirubin AST ALT Alkaline Phosphatase Lactate Dehydrogenase Troponin T C-Reactive Protein Total Protein Albumin Prealbumin Triglycerides Cholesterol LDL Cholesterol Direct HDL Cholesterol Urine pH Urine WBC (Auto) Urine Creatinine Urine Total Protein Fluid Total Protein Vancomycin Trough Rheumatoid Factor Complement C4 Miscellaneous Test Crossmatch 09/25/16 09/25/16 09/25/16 04:20 04:20 04:20 WBC RBC 2.58 L Hgb 7.0 L Hct 21.0 L MCV MCH 27 L MCHC RDW 23.8 H Plt Count Lymph % (Auto) [place] % (Auto) Lymph # [place] # Baso # Seg Neutrophils % Seg Neuts % (Manual) Lymphocytes % (Manual) 12.0 L Monocytes % (Manual) Eosinophils % (Manual) 7.0 H Basophils % (Manual) 2.0 H Nucleated RBC % Seg Neutrophils # Seg Neutrophils # Man Lymphocytes # (Manual) 0.9 L Monocytes # (Manual) Eosinophils # (Manual) 0.5 H Basophils # (Manual) PT INR Fibrinogen dRVVT Confirm Interp Factor V Activity POC ABG pH POC ABG pCO2 POC ABG pO2 ABG pO2 ABG HCO3 ABG Base Excess ABG Hemoglobin Oxyhemoglobin Sodium Potassium Chloride Carbon Dioxide 15 L BUN 72 H Creatinine 3.8 H Glucose POC Glucose Lactic Acid Calcium 6.0 L Phosphorus 4.60 H Magnesium 1.60 L Direct Bilirubin AST ALT Alkaline Phosphatase Lactate Dehydrogenase Troponin T C-Reactive Protein Total Protein Albumin Prealbumin Triglycerides Cholesterol LDL Cholesterol Direct HDL Cholesterol Urine pH Urine WBC (Auto) Urine Creatinine Urine Total Protein Fluid Total Protein Vancomycin Trough Rheumatoid Factor Complement C4 Miscellaneous Test Crossmatch 09/25/16 09/25/16 09/25/16 04:57 08:02 10:30 WBC RBC Hgb Hct MCV MCH MCHC RDW Plt Count Lymph % (Auto) [place] % (Auto) Lymph # [place] # Baso # Seg Neutrophils % Seg Neuts % (Manual) Lymphocytes % (Manual) Monocytes % (Manual) Eosinophils % (Manual) Basophils % (Manual) Nucleated RBC % Seg Neutrophils # Seg Neutrophils # Man Lymphocytes # (Manual) Monocytes # (Manual) Eosinophils # (Manual) Basophils # (Manual) PT INR Fibrinogen dRVVT Confirm Interp Factor V Activity POC ABG pH POC ABG pCO2 24.7 L POC ABG pO2 152 H ABG pO2 ABG HCO3 ABG Base Excess ABG Hemoglobin Oxyhemoglobin Sodium Potassium Chloride Carbon Dioxide BUN Creatinine Glucose POC Glucose 113 H Lactic Acid Calcium Phosphorus Magnesium Direct Bilirubin AST ALT Alkaline Phosphatase Lactate Dehydrogenase Troponin T C-Reactive Protein Total Protein Albumin Prealbumin Triglycerides Cholesterol LDL Cholesterol Direct HDL Cholesterol Urine pH Urine WBC (Auto) Urine Creatinine Urine Total Protein Fluid Total Protein Vancomycin Trough Rheumatoid Factor Complement C4 Miscellaneous Test Crossmatch See Detail 09/25/16 09/25/16 09/25/16 12:05 17:44 23:47 WBC RBC Hgb Hct MCV MCH MCHC RDW Plt Count Lymph % (Auto) [place] % (Auto) Lymph # [place] # Baso # Seg Neutrophils % Seg Neuts % (Manual) Lymphocytes % (Manual) Monocytes % (Manual) Eosinophils % (Manual) Basophils % (Manual) Nucleated RBC % Seg Neutrophils # Seg Neutrophils # Man Lymphocytes # (Manual) Monocytes # (Manual) Eosinophils # (Manual) Basophils # (Manual) PT INR Fibrinogen dRVVT Confirm Interp Factor V Activity POC ABG pH POC ABG pCO2 POC ABG pO2 ABG pO2 ABG HCO3 ABG Base Excess ABG Hemoglobin Oxyhemoglobin Sodium Potassium Chloride Carbon Dioxide BUN Creatinine Glucose POC Glucose 117 H 119 H 150 H Lactic Acid Calcium Phosphorus Magnesium Direct Bilirubin AST ALT Alkaline Phosphatase Lactate Dehydrogenase Troponin T C-Reactive Protein Total Protein Albumin Prealbumin Triglycerides Cholesterol LDL Cholesterol Direct HDL Cholesterol Urine pH Urine WBC (Auto) Urine Creatinine Urine Total Protein Fluid Total Protein Vancomycin Trough Rheumatoid Factor Complement C4 Miscellaneous Test Crossmatch 09/26/16 09/26/16 09/26/16 04:25 04:25 04:25 WBC RBC 2.65 L Hgb 7.4 L Hct 21.6 L MCV MCH MCHC RDW 22.5 H Plt Count Lymph % (Auto) [place] % (Auto) Lymph # [place] # Baso # Seg Neutrophils % Seg Neuts % (Manual) Lymphocytes % (Manual) 6.0 L Monocytes % (Manual) Eosinophils % (Manual) 11.0 H Basophils % (Manual) Nucleated RBC % Seg Neutrophils # Seg Neutrophils # Man Lymphocytes # (Manual) 0.4 L Monocytes # (Manual) Eosinophils # (Manual) 0.6 H Basophils # (Manual) PT INR Fibrinogen dRVVT Confirm Interp Factor V Activity POC ABG pH POC ABG pCO2 POC ABG pO2 ABG pO2 ABG HCO3 ABG Base Excess ABG Hemoglobin Oxyhemoglobin Sodium Potassium Chloride 97.0 L Carbon Dioxide 19 L BUN 43 H Creatinine 2.6 H Glucose 130 H POC Glucose Lactic Acid 4.40 H* Calcium 6.7 L Phosphorus Magnesium Direct Bilirubin AST ALT Alkaline Phosphatase Lactate Dehydrogenase Troponin T C-Reactive Protein Total Protein Albumin Prealbumin Triglycerides Cholesterol LDL Cholesterol Direct HDL Cholesterol Urine pH Urine WBC (Auto) Urine Creatinine Urine Total Protein Fluid Total Protein Vancomycin Trough Rheumatoid Factor Complement C4 Miscellaneous Test Crossmatch 09/26/16 09/26/16 09/26/16 05:20 11:44 12:12 WBC RBC Hgb Hct MCV MCH MCHC RDW Plt Count Lymph % (Auto) [place] % (Auto) Lymph # [place] # Baso # Seg Neutrophils % Seg Neuts % (Manual) Lymphocytes % (Manual) Monocytes % (Manual) Eosinophils % (Manual) Basophils % (Manual) Nucleated RBC % Seg Neutrophils # Seg Neutrophils # Man Lymphocytes # (Manual) Monocytes # (Manual) Eosinophils # (Manual) Basophils # (Manual) PT INR Fibrinogen dRVVT Confirm Interp Factor V Activity POC ABG pH POC ABG pCO2 27.0 L POC ABG pO2 69 L ABG pO2 ABG HCO3 ABG Base Excess ABG Hemoglobin Oxyhemoglobin Sodium Potassium Chloride Carbon Dioxide BUN Creatinine Glucose POC Glucose 121 H 128 H Lactic Acid Calcium Phosphorus Magnesium Direct Bilirubin AST ALT Alkaline Phosphatase Lactate Dehydrogenase Troponin T C-Reactive Protein Total Protein Albumin Prealbumin Triglycerides Cholesterol LDL Cholesterol Direct HDL Cholesterol Urine pH Urine WBC (Auto) Urine Creatinine Urine Total Protein Fluid Total Protein Vancomycin Trough Rheumatoid Factor Complement C4 Miscellaneous Test Crossmatch 09/26/16 09/26/16 09/27/16 18:31 23:40 08:20 WBC RBC Hgb Hct MCV MCH MCHC RDW Plt Count Lymph % (Auto) [place] % (Auto) Lymph # [place] # Baso # Seg Neutrophils % Seg Neuts % (Manual) Lymphocytes % (Manual) Monocytes % (Manual) Eosinophils % (Manual) Basophils % (Manual) Nucleated RBC % Seg Neutrophils # Seg Neutrophils # Man Lymphocytes # (Manual) Monocytes # (Manual) Eosinophils # (Manual) Basophils # (Manual) PT INR Fibrinogen dRVVT Confirm Interp Factor V Activity POC ABG pH POC ABG pCO2 POC ABG pO2 ABG pO2 ABG HCO3 ABG Base Excess ABG Hemoglobin Oxyhemoglobin Sodium Potassium Chloride Carbon Dioxide BUN Creatinine Glucose POC Glucose 120 H 133 H Lactic Acid 4.10 H* Calcium Phosphorus Magnesium Direct Bilirubin AST ALT Alkaline Phosphatase Lactate Dehydrogenase Troponin T C-Reactive Protein Total Protein Albumin Prealbumin Triglycerides Cholesterol LDL Cholesterol Direct HDL Cholesterol Urine pH Urine WBC (Auto) Urine Creatinine Urine Total Protein Fluid Total Protein Vancomycin Trough Rheumatoid Factor Complement C4 Miscellaneous Test Crossmatch 09/27/16 09/27/16 09/27/16 11:23 15:00 18:15 WBC RBC Hgb Hct MCV MCH MCHC RDW Plt Count Lymph % (Auto) [place] % (Auto) Lymph # [place] # Baso # Seg Neutrophils % Seg Neuts % (Manual) Lymphocytes % (Manual) Monocytes % (Manual) Eosinophils % (Manual) Basophils % (Manual) Nucleated RBC % Seg Neutrophils # Seg Neutrophils # Man Lymphocytes # (Manual) Monocytes # (Manual) Eosinophils # (Manual) Basophils # (Manual) PT INR Fibrinogen dRVVT Confirm Interp Factor V Activity POC ABG pH 7.459 H POC ABG pCO2 27.1 L POC ABG pO2 140 H ABG pO2 ABG HCO3 ABG Base Excess ABG Hemoglobin Oxyhemoglobin Sodium Potassium Chloride Carbon Dioxide BUN Creatinine Glucose POC Glucose 114 H 127 H Lactic Acid Calcium Phosphorus Magnesium Direct Bilirubin AST ALT Alkaline Phosphatase Lactate Dehydrogenase Troponin T C-Reactive Protein Total Protein Albumin Prealbumin Triglycerides Cholesterol LDL Cholesterol Direct HDL Cholesterol Urine pH Urine WBC (Auto) Urine Creatinine Urine Total Protein Fluid Total Protein Vancomycin Trough Rheumatoid Factor Complement C4 Miscellaneous Test Crossmatch 09/27/16 09/27/16 09/28/16 Unknown Unknown 03:45 WBC RBC 2.49 L Hgb 6.8 L Hct 20.7 L MCV MCH 27 L MCHC RDW 22.1 H Plt Count Lymph % (Auto) [place] % (Auto) Lymph # [place] # Baso # Seg Neutrophils % Seg Neuts % (Manual) 32.0 L Lymphocytes % (Manual) 12.0 L Monocytes % (Manual) 11.0 H Eosinophils % (Manual) 10.0 H Basophils % (Manual) Nucleated RBC % Seg Neutrophils # Seg Neutrophils # Man Lymphocytes # (Manual) 1.0 L Monocytes # (Manual) 0.9 H Eosinophils # (Manual) 0.8 H Basophils # (Manual) PT INR Fibrinogen dRVVT Confirm Interp Factor V Activity POC ABG pH POC ABG pCO2 POC ABG pO2 ABG pO2 ABG HCO3 ABG Base Excess ABG Hemoglobin Oxyhemoglobin Sodium 135 L 135 L Potassium 3.5 L Chloride 93.6 L 94.4 L Carbon Dioxide 17 L 21 L BUN 45 H 28 H Creatinine 3.3 H 2.5 H Glucose 106 H POC Glucose Lactic Acid Calcium 7.3 L 7.1 L Phosphorus Magnesium Direct Bilirubin AST ALT Alkaline Phosphatase Lactate Dehydrogenase Troponin T C-Reactive Protein Total Protein Albumin Prealbumin Triglycerides Cholesterol LDL Cholesterol Direct HDL Cholesterol Urine pH Urine WBC (Auto) Urine Creatinine Urine Total Protein Fluid Total Protein Vancomycin Trough Rheumatoid Factor Complement C4 Miscellaneous Test Crossmatch 09/28/16 09/28/16 09/28/16 03:45 07:25 11:58 WBC 13.3 H RBC 3.01 L Hgb 8.4 L Hct 25.0 L MCV MCH MCHC RDW 20.5 H Plt Count 128 L Lymph % (Auto) [place] % (Auto) Lymph # [place] # Baso # Seg Neutrophils % Seg Neuts % (Manual) Lymphocytes % (Manual) 7.0 L Monocytes % (Manual) Eosinophils % (Manual) 6.0 H Basophils % (Manual) Nucleated RBC % Seg Neutrophils # Seg Neutrophils # Man Lymphocytes # (Manual) 0.9 L Monocytes # (Manual) Eosinophils # (Manual) 0.8 H Basophils # (Manual) PT INR Fibrinogen dRVVT Confirm Interp Factor V Activity POC ABG pH POC ABG pCO2 POC ABG pO2 ABG pO2 ABG HCO3 ABG Base Excess ABG Hemoglobin Oxyhemoglobin Sodium Potassium Chloride Carbon Dioxide BUN Creatinine Glucose POC Glucose 121 H Lactic Acid 4.50 H* Calcium Phosphorus Magnesium Direct Bilirubin AST ALT Alkaline Phosphatase Lactate Dehydrogenase Troponin T C-Reactive Protein Total Protein Albumin Prealbumin Triglycerides Cholesterol LDL Cholesterol Direct HDL Cholesterol Urine pH Urine WBC (Auto) Urine Creatinine Urine Total Protein Fluid Total Protein Vancomycin Trough Rheumatoid Factor Complement C4 Miscellaneous Test Crossmatch 09/29/16 09/29/16 09/29/16 06:45 06:45 06:45 WBC 14.9 H RBC 2.74 L Hgb 7.6 L Hct 23.2 L MCV MCH MCHC RDW 20.5 H Plt Count 81 L Lymph % (Auto) [place] % (Auto) Lymph # [place] # Baso # Seg Neutrophils % Seg Neuts % (Manual) 81.0 H Lymphocytes % (Manual) 4.0 L Monocytes % (Manual) Eosinophils % (Manual) Basophils % (Manual) Nucleated RBC % Seg Neutrophils # Seg Neutrophils # Man 12.1 H Lymphocytes # (Manual) 0.6 L Monocytes # (Manual) Eosinophils # (Manual) Basophils # (Manual) PT INR Fibrinogen dRVVT Confirm Interp Factor V Activity POC ABG pH POC ABG pCO2 POC ABG pO2 ABG pO2 ABG HCO3 ABG Base Excess ABG Hemoglobin Oxyhemoglobin Sodium 133 L Potassium 3.4 L Chloride 92.5 L Carbon Dioxide 21 L BUN 33 H Creatinine 3.0 H Glucose POC Glucose Lactic Acid Calcium 6.6 L Phosphorus Magnesium 1.40 L Direct Bilirubin 0.9 H AST ALT Alkaline Phosphatase Lactate Dehydrogenase Troponin T C-Reactive Protein Total Protein 4.3 L Albumin 1.3 L Prealbumin Triglycerides Cholesterol LDL Cholesterol Direct HDL Cholesterol Urine pH Urine WBC (Auto) Urine Creatinine Urine Total Protein Fluid Total Protein Vancomycin Trough Rheumatoid Factor Complement C4 Miscellaneous Test Crossmatch 09/29/16 09/29/16 09/30/16 17:52 20:12 00:07 WBC RBC Hgb Hct MCV MCH MCHC RDW Plt Count Lymph % (Auto) [place] % (Auto) Lymph # [place] # Baso # Seg Neutrophils % Seg Neuts % (Manual) Lymphocytes % (Manual) Monocytes % (Manual) Eosinophils % (Manual) Basophils % (Manual) Nucleated RBC % Seg Neutrophils # Seg Neutrophils # Man Lymphocytes # (Manual) Monocytes # (Manual) Eosinophils # (Manual) Basophils # (Manual) PT INR Fibrinogen dRVVT Confirm Interp Factor V Activity POC ABG pH POC ABG pCO2 POC ABG pO2 ABG pO2 ABG HCO3 ABG Base Excess ABG Hemoglobin Oxyhemoglobin Sodium Potassium Chloride Carbon Dioxide BUN Creatinine Glucose POC Glucose 50 L 51 L Lactic Acid Calcium Phosphorus Magnesium Direct Bilirubin AST ALT Alkaline Phosphatase Lactate Dehydrogenase Troponin T 0.204 H* C-Reactive Protein Total Protein Albumin Prealbumin Triglycerides Cholesterol 31 L LDL Cholesterol Direct 4 L HDL Cholesterol 3 L Urine pH Urine WBC (Auto) Urine Creatinine Urine Total Protein Fluid Total Protein Vancomycin Trough Rheumatoid Factor Complement C4 Miscellaneous Test Crossmatch 09/30/16 09/30/16 09/30/16 01:30 05:15 06:10 WBC RBC Hgb Hct MCV MCH MCHC RDW Plt Count Lymph % (Auto) [place] % (Auto) Lymph # [place] # Baso # Seg Neutrophils % Seg Neuts % (Manual) Lymphocytes % (Manual) Monocytes % (Manual) Eosinophils % (Manual) Basophils % (Manual) Nucleated RBC % Seg Neutrophils # Seg Neutrophils # Man Lymphocytes # (Manual) Monocytes # (Manual) Eosinophils # (Manual) Basophils # (Manual) PT INR Fibrinogen dRVVT Confirm Interp Factor V Activity POC ABG pH POC ABG pCO2 POC ABG pO2 ABG pO2 ABG HCO3 ABG Base Excess ABG Hemoglobin Oxyhemoglobin Sodium 133 L Potassium 3.2 L Chloride 93.2 L Carbon Dioxide 19 L BUN 36 H Creatinine 3.2 H Glucose 104 H POC Glucose 167 H 146 H Lactic Acid Calcium 6.4 L Phosphorus Magnesium 1.60 L Direct Bilirubin AST ALT Alkaline Phosphatase Lactate Dehydrogenase Troponin T C-Reactive Protein Total Protein Albumin Prealbumin Triglycerides Cholesterol LDL Cholesterol Direct HDL Cholesterol Urine pH Urine WBC (Auto) Urine Creatinine Urine Total Protein Fluid Total Protein Vancomycin Trough Rheumatoid Factor Complement C4 Miscellaneous Test Crossmatch 09/30/16 09/30/16 09/30/16 11:26 13:39 18:38 WBC RBC Hgb Hct MCV MCH MCHC RDW Plt Count Lymph % (Auto) [place] % (Auto) Lymph # [place] # Baso # Seg Neutrophils % Seg Neuts % (Manual) Lymphocytes % (Manual) Monocytes % (Manual) Eosinophils % (Manual) Basophils % (Manual) Nucleated RBC % Seg Neutrophils # Seg Neutrophils # Man Lymphocytes # (Manual) Monocytes # (Manual) Eosinophils # (Manual) Basophils # (Manual) PT INR Fibrinogen dRVVT Confirm Interp Factor V Activity POC ABG pH 7.479 H POC ABG pCO2 29.8 L POC ABG pO2 117 H ABG pO2 ABG HCO3 ABG Base Excess ABG Hemoglobin Oxyhemoglobin Sodium Potassium Chloride Carbon Dioxide BUN Creatinine Glucose POC Glucose 140 H 122 H Lactic Acid Calcium Phosphorus Magnesium Direct Bilirubin AST ALT Alkaline Phosphatase Lactate Dehydrogenase Troponin T C-Reactive Protein Total Protein Albumin Prealbumin Triglycerides Cholesterol LDL Cholesterol Direct HDL Cholesterol Urine pH Urine WBC (Auto) Urine Creatinine Urine Total Protein Fluid Total Protein Vancomycin Trough Rheumatoid Factor Complement C4 Miscellaneous Test Crossmatch 10/01/16 10/01/16 10/01/16 06:00 06:00 12:37 WBC 12.6 H RBC 2.75 L Hgb 7.3 L Hct 23.3 L MCV MCH 27 L MCHC RDW 20.6 H Plt Count 72 L Lymph % (Auto) [place] % (Auto) Lymph # [place] # Baso # Seg Neutrophils % Seg Neuts % (Manual) 31.0 L Lymphocytes % (Manual) 8.0 L Monocytes % (Manual) Eosinophils % (Manual) Basophils % (Manual) Nucleated RBC % 3.0 H Seg Neutrophils # Seg Neutrophils # Man Lymphocytes # (Manual) 1.0 L Monocytes # (Manual) Eosinophils # (Manual) Basophils # (Manual) PT INR Fibrinogen dRVVT Confirm Interp Factor V Activity POC ABG pH POC ABG pCO2 POC ABG pO2 ABG pO2 ABG HCO3 ABG Base Excess ABG Hemoglobin Oxyhemoglobin Sodium 127 L Potassium Chloride 86.8 L Carbon Dioxide 20 L BUN 42 H Creatinine 3.5 H Glucose POC Glucose 65 L Lactic Acid Calcium 7.0 L Phosphorus Magnesium Direct Bilirubin AST ALT Alkaline Phosphatase Lactate Dehydrogenase Troponin T C-Reactive Protein Total Protein Albumin Prealbumin Triglycerides Cholesterol LDL Cholesterol Direct HDL Cholesterol Urine pH Urine WBC (Auto) Urine Creatinine Urine Total Protein Fluid Total Protein Vancomycin Trough Rheumatoid Factor Complement C4 Miscellaneous Test Crossmatch 10/01/16 10/01/16 10/02/16 17:39 23:32 00:59 WBC RBC Hgb Hct MCV MCH MCHC RDW Plt Count Lymph % (Auto) [place] % (Auto) Lymph # [place] # Baso # Seg Neutrophils % Seg Neuts % (Manual) Lymphocytes % (Manual) Monocytes % (Manual) Eosinophils % (Manual) Basophils % (Manual) Nucleated RBC % Seg Neutrophils # Seg Neutrophils # Man Lymphocytes # (Manual) Monocytes # (Manual) Eosinophils # (Manual) Basophils # (Manual) PT INR Fibrinogen dRVVT Confirm Interp Factor V Activity POC ABG pH POC ABG pCO2 POC ABG pO2 ABG pO2 ABG HCO3 ABG Base Excess ABG Hemoglobin Oxyhemoglobin Sodium Potassium Chloride Carbon Dioxide BUN Creatinine Glucose POC Glucose 107 H 52 L 145 H Lactic Acid Calcium Phosphorus Magnesium Direct Bilirubin AST ALT Alkaline Phosphatase Lactate Dehydrogenase Troponin T C-Reactive Protein Total Protein Albumin Prealbumin Triglycerides Cholesterol LDL Cholesterol Direct HDL Cholesterol Urine pH Urine WBC (Auto) Urine Creatinine Urine Total Protein Fluid Total Protein Vancomycin Trough Rheumatoid Factor Complement C4 Miscellaneous Test Crossmatch 10/02/16 10/02/16 10/02/16 10:30 10:50 10:50 WBC 14.7 H RBC 2.76 L Hgb 7.4 L Hct 23.6 L MCV MCH 27 L MCHC RDW 20.2 H Plt Count 79 L Lymph % (Auto) [place] % (Auto) Lymph # [place] # Baso # Seg Neutrophils % Seg Neuts % (Manual) 86.0 H Lymphocytes % (Manual) 6.0 L Monocytes % (Manual) Eosinophils % (Manual) Basophils % (Manual) Nucleated RBC % Seg Neutrophils # Seg Neutrophils # Man 12.6 H Lymphocytes # (Manual) 0.9 L Monocytes # (Manual) Eosinophils # (Manual) Basophils # (Manual) PT INR Fibrinogen dRVVT Confirm Interp Factor V Activity POC ABG pH 7.486 H POC ABG pCO2 30.1 L POC ABG pO2 108 H ABG pO2 ABG HCO3 ABG Base Excess ABG Hemoglobin Oxyhemoglobin Sodium 131 L Potassium 3.4 L Chloride 89.9 L Carbon Dioxide BUN 26 H Creatinine 2.6 H Glucose POC Glucose Lactic Acid Calcium 7.0 L Phosphorus Magnesium Direct Bilirubin AST ALT Alkaline Phosphatase Lactate Dehydrogenase Troponin T C-Reactive Protein Total Protein Albumin Prealbumin Triglycerides Cholesterol LDL Cholesterol Direct HDL Cholesterol Urine pH Urine WBC (Auto) Urine Creatinine Urine Total Protein Fluid Total Protein Vancomycin Trough Rheumatoid Factor Complement C4 Miscellaneous Test Crossmatch 10/02/16 10/03/16 10/03/16 23:45 00:45 05:10 WBC 12.9 H RBC 2.77 L Hgb 7.6 L Hct 23.7 L MCV MCH 27 L MCHC RDW 19.7 H Plt Count 89 L Lymph % (Auto) [place] % (Auto) Lymph # [place] # Baso # Seg Neutrophils % Seg Neuts % (Manual) Lymphocytes % (Manual) 8.0 L Monocytes % (Manual) Eosinophils % (Manual) Basophils % (Manual) Nucleated RBC % Seg Neutrophils # 11.9 H Seg Neutrophils # Man Lymphocytes # (Manual) 1.0 L Monocytes # (Manual) Eosinophils # (Manual) Basophils # (Manual) PT INR Fibrinogen dRVVT Confirm Interp Factor V Activity POC ABG pH POC ABG pCO2 POC ABG pO2 ABG pO2 ABG HCO3 ABG Base Excess ABG Hemoglobin Oxyhemoglobin Sodium Potassium Chloride Carbon Dioxide BUN Creatinine Glucose POC Glucose 55 L 199 H Lactic Acid Calcium Phosphorus Magnesium Direct Bilirubin AST ALT Alkaline Phosphatase Lactate Dehydrogenase Troponin T C-Reactive Protein Total Protein Albumin Prealbumin Triglycerides Cholesterol LDL Cholesterol Direct HDL Cholesterol Urine pH Urine WBC (Auto) Urine Creatinine Urine Total Protein Fluid Total Protein Vancomycin Trough Rheumatoid Factor Complement C4 Miscellaneous Test Crossmatch 10/03/16 10/03/16 10/03/16 05:10 12:14 13:18 WBC RBC Hgb Hct MCV MCH MCHC RDW Plt Count Lymph % (Auto) [place] % (Auto) Lymph # [place] # Baso # Seg Neutrophils % Seg Neuts % (Manual) Lymphocytes % (Manual) Monocytes % (Manual) Eosinophils % (Manual) Basophils % (Manual) Nucleated RBC % Seg Neutrophils # Seg Neutrophils # Man Lymphocytes # (Manual) Monocytes # (Manual) Eosinophils # (Manual) Basophils # (Manual) PT INR Fibrinogen dRVVT Confirm Interp Factor V Activity POC ABG pH POC ABG pCO2 POC ABG pO2 ABG pO2 ABG HCO3 ABG Base Excess ABG Hemoglobin Oxyhemoglobin Sodium 129 L Potassium 3.3 L Chloride 88.8 L Carbon Dioxide 20 L BUN 29 H Creatinine 2.8 H Glucose POC Glucose 68 L 127 H Lactic Acid Calcium 7.2 L Phosphorus Magnesium Direct Bilirubin AST ALT Alkaline Phosphatase Lactate Dehydrogenase Troponin T C-Reactive Protein Total Protein Albumin Prealbumin Triglycerides Cholesterol LDL Cholesterol Direct HDL Cholesterol Urine pH Urine WBC (Auto) Urine Creatinine Urine Total Protein Fluid Total Protein Vancomycin Trough Rheumatoid Factor Complement C4 Miscellaneous Test Crossmatch 10/03/16 10/03/16 10/03/16 14:42 18:21 19:09 WBC RBC Hgb Hct MCV MCH MCHC RDW Plt Count Lymph % (Auto) [place] % (Auto) Lymph # [place] # Baso # Seg Neutrophils % Seg Neuts % (Manual) Lymphocytes % (Manual) Monocytes % (Manual) Eosinophils % (Manual) Basophils % (Manual) Nucleated RBC % Seg Neutrophils # Seg Neutrophils # Man Lymphocytes # (Manual) Monocytes # (Manual) Eosinophils # (Manual) Basophils # (Manual) PT INR Fibrinogen dRVVT Confirm Interp Factor V Activity POC ABG pH 7.499 H POC ABG pCO2 28.4 L POC ABG pO2 44 L ABG pO2 ABG HCO3 ABG Base Excess ABG Hemoglobin Oxyhemoglobin Sodium Potassium Chloride Carbon Dioxide BUN Creatinine Glucose POC Glucose 64 L 205 H Lactic Acid Calcium Phosphorus Magnesium Direct Bilirubin AST ALT Alkaline Phosphatase Lactate Dehydrogenase Troponin T C-Reactive Protein Total Protein Albumin Prealbumin Triglycerides Cholesterol LDL Cholesterol Direct HDL Cholesterol Urine pH Urine WBC (Auto) Urine Creatinine Urine Total Protein Fluid Total Protein Vancomycin Trough Rheumatoid Factor Complement C4 Miscellaneous Test Crossmatch 10/03/16 10/04/16 10/04/16 23:33 04:18 06:30 WBC RBC 2.54 L Hgb 7.1 L Hct 21.7 L MCV MCH MCHC RDW 19.5 H Plt Count 76 L Lymph % (Auto) [place] % (Auto) Lymph # [place] # Baso # Seg Neutrophils % Seg Neuts % (Manual) 88.0 H Lymphocytes % (Manual) 6.0 L Monocytes % (Manual) Eosinophils % (Manual) Basophils % (Manual) Nucleated RBC % Seg Neutrophils # Seg Neutrophils # Man 8.8 H Lymphocytes # (Manual) 0.6 L Monocytes # (Manual) Eosinophils # (Manual) Basophils # (Manual) PT INR Fibrinogen dRVVT Confirm Interp Factor V Activity POC ABG pH 7.461 H POC ABG pCO2 33.6 L POC ABG pO2 211 H ABG pO2 ABG HCO3 ABG Base Excess ABG Hemoglobin Oxyhemoglobin Sodium Potassium Chloride Carbon Dioxide BUN Creatinine Glucose POC Glucose 136 H Lactic Acid Calcium Phosphorus Magnesium Direct Bilirubin AST ALT Alkaline Phosphatase Lactate Dehydrogenase Troponin T C-Reactive Protein Total Protein Albumin Prealbumin Triglycerides Cholesterol LDL Cholesterol Direct HDL Cholesterol Urine pH Urine WBC (Auto) Urine Creatinine Urine Total Protein Fluid Total Protein Vancomycin Trough Rheumatoid Factor Complement C4 Miscellaneous Test Crossmatch 10/04/16 10/04/16 10/04/16 06:30 11:45 17:54 WBC RBC Hgb Hct MCV MCH MCHC RDW Plt Count Lymph % (Auto) [place] % (Auto) Lymph # [place] # Baso # Seg Neutrophils % Seg Neuts % (Manual) Lymphocytes % (Manual) Monocytes % (Manual) Eosinophils % (Manual) Basophils % (Manual) Nucleated RBC % Seg Neutrophils # Seg Neutrophils # Man Lymphocytes # (Manual) Monocytes # (Manual) Eosinophils # (Manual) Basophils # (Manual) PT INR Fibrinogen dRVVT Confirm Interp Factor V Activity POC ABG pH POC ABG pCO2 POC ABG pO2 ABG pO2 ABG HCO3 ABG Base Excess ABG Hemoglobin Oxyhemoglobin Sodium 128 L Potassium Chloride 87.4 L Carbon Dioxide 20 L BUN 34 H Creatinine 2.9 H Glucose 127 H POC Glucose 158 H 160 H Lactic Acid Calcium 7.4 L Phosphorus Magnesium Direct Bilirubin AST ALT Alkaline Phosphatase Lactate Dehydrogenase Troponin T C-Reactive Protein Total Protein Albumin Prealbumin Triglycerides Cholesterol LDL Cholesterol Direct HDL Cholesterol Urine pH Urine WBC (Auto) Urine Creatinine Urine Total Protein Fluid Total Protein Vancomycin Trough Rheumatoid Factor Complement C4 Miscellaneous Test Crossmatch 10/04/16 10/05/16 10/05/16 23:25 04:30 05:00 WBC RBC 2.64 L Hgb 7.5 L Hct 22.6 L MCV MCH MCHC RDW 19.3 H Plt Count 80 L Lymph % (Auto) [place] % (Auto) Lymph # [place] # Baso # Seg Neutrophils % Seg Neuts % (Manual) Lymphocytes % (Manual) 12.0 L Monocytes % (Manual) Eosinophils % (Manual) Basophils % (Manual) Nucleated RBC % Seg Neutrophils # Seg Neutrophils # Man Lymphocytes # (Manual) Monocytes # (Manual) Eosinophils # (Manual) Basophils # (Manual) PT INR Fibrinogen dRVVT Confirm Interp Factor V Activity POC ABG pH 7.475 H POC ABG pCO2 33.3 L POC ABG pO2 140 H ABG pO2 ABG HCO3 ABG Base Excess ABG Hemoglobin Oxyhemoglobin Sodium Potassium Chloride Carbon Dioxide BUN Creatinine Glucose POC Glucose 141 H Lactic Acid Calcium Phosphorus Magnesium Direct Bilirubin AST ALT Alkaline Phosphatase Lactate Dehydrogenase Troponin T C-Reactive Protein Total Protein Albumin Prealbumin Triglycerides Cholesterol LDL Cholesterol Direct HDL Cholesterol Urine pH Urine WBC (Auto) Urine Creatinine Urine Total Protein Fluid Total Protein Vancomycin Trough Rheumatoid Factor Complement C4 Miscellaneous Test Crossmatch 10/05/16 10/05/16 10/05/16 05:00 05:09 12:58 WBC RBC Hgb Hct MCV MCH MCHC RDW Plt Count Lymph % (Auto) [place] % (Auto) Lymph # [place] # Baso # Seg Neutrophils % Seg Neuts % (Manual) Lymphocytes % (Manual) Monocytes % (Manual) Eosinophils % (Manual) Basophils % (Manual) Nucleated RBC % Seg Neutrophils # Seg Neutrophils # Man Lymphocytes # (Manual) Monocytes # (Manual) Eosinophils # (Manual) Basophils # (Manual) PT INR Fibrinogen dRVVT Confirm Interp Factor V Activity POC ABG pH POC ABG pCO2 POC ABG pO2 ABG pO2 ABG HCO3 ABG Base Excess ABG Hemoglobin Oxyhemoglobin Sodium 131 L Potassium Chloride 94.0 L Carbon Dioxide 20 L BUN 22 H Creatinine 2.0 H Glucose 123 H POC Glucose 166 H 179 H Lactic Acid Calcium 7.7 L Phosphorus 2.20 L D Magnesium Direct Bilirubin AST ALT Alkaline Phosphatase Lactate Dehydrogenase Troponin T C-Reactive Protein Total Protein Albumin Prealbumin Triglycerides Cholesterol LDL Cholesterol Direct HDL Cholesterol Urine pH Urine WBC (Auto) Urine Creatinine Urine Total Protein Fluid Total Protein Vancomycin Trough Rheumatoid Factor Complement C4 Miscellaneous Test Crossmatch 10/05/16 10/05/16 10/05/16 15:50 18:53 23:12 WBC RBC Hgb Hct MCV MCH MCHC RDW Plt Count Lymph % (Auto) [place] % (Auto) Lymph # [place] # Baso # Seg Neutrophils % Seg Neuts % (Manual) Lymphocytes % (Manual) Monocytes % (Manual) Eosinophils % (Manual) Basophils % (Manual) Nucleated RBC % Seg Neutrophils # Seg Neutrophils # Man Lymphocytes # (Manual) Monocytes # (Manual) Eosinophils # (Manual) Basophils # (Manual) PT INR Fibrinogen dRVVT Confirm Interp Factor V Activity POC ABG pH POC ABG pCO2 POC ABG pO2 ABG pO2 ABG HCO3 ABG Base Excess ABG Hemoglobin Oxyhemoglobin Sodium Potassium Chloride Carbon Dioxide BUN Creatinine Glucose POC Glucose 150 H 164 H Lactic Acid Calcium Phosphorus Magnesium Direct Bilirubin AST ALT Alkaline Phosphatase Lactate Dehydrogenase Troponin T C-Reactive Protein Total Protein Albumin Prealbumin Triglycerides Cholesterol LDL Cholesterol Direct HDL Cholesterol Urine pH Urine WBC (Auto) Urine Creatinine Urine Total Protein Fluid Total Protein Vancomycin Trough Rheumatoid Factor Complement C4 Miscellaneous Test Crossmatch See Detail 10/06/16 10/06/16 10/06/16 03:50 03:50 04:53 WBC RBC 3.00 L Hgb 8.6 L Hct 25.8 L MCV MCH MCHC RDW 17.9 H Plt Count 65 L Lymph % (Auto) [place] % (Auto) Lymph # [place] # Baso # Seg Neutrophils % Seg Neuts % (Manual) 30.0 L Lymphocytes % (Manual) 5.0 L Monocytes % (Manual) Eosinophils % (Manual) Basophils % (Manual) Nucleated RBC % Seg Neutrophils # Seg Neutrophils # Man Lymphocytes # (Manual) 0.4 L Monocytes # (Manual) Eosinophils # (Manual) Basophils # (Manual) PT INR Fibrinogen dRVVT Confirm Interp Factor V Activity POC ABG pH 7.310 L POC ABG pCO2 49.0 H POC ABG pO2 ABG pO2 ABG HCO3 ABG Base Excess ABG Hemoglobin Oxyhemoglobin Sodium 133 L Potassium Chloride 95.9 L Carbon Dioxide BUN 26 H Creatinine 2.0 H Glucose 116 H POC Glucose Lactic Acid Calcium 7.8 L Phosphorus Magnesium Direct Bilirubin AST ALT Alkaline Phosphatase Lactate Dehydrogenase Troponin T C-Reactive Protein Total Protein Albumin Prealbumin Triglycerides Cholesterol LDL Cholesterol Direct HDL Cholesterol Urine pH Urine WBC (Auto) Urine Creatinine Urine Total Protein Fluid Total Protein Vancomycin Trough Rheumatoid Factor Complement C4 Miscellaneous Test Crossmatch 10/06/16 10/06/16 10/06/16 05:23 11:52 18:34 WBC RBC Hgb Hct MCV MCH MCHC RDW Plt Count Lymph % (Auto) [place] % (Auto) Lymph # [place] # Baso # Seg Neutrophils % Seg Neuts % (Manual) Lymphocytes % (Manual) Monocytes % (Manual) Eosinophils % (Manual) Basophils % (Manual) Nucleated RBC % Seg Neutrophils # Seg Neutrophils # Man Lymphocytes # (Manual) Monocytes # (Manual) Eosinophils # (Manual) Basophils # (Manual) PT INR Fibrinogen dRVVT Confirm Interp Factor V Activity POC ABG pH POC ABG pCO2 POC ABG pO2 ABG pO2 ABG HCO3 ABG Base Excess ABG Hemoglobin Oxyhemoglobin Sodium Potassium Chloride Carbon Dioxide BUN Creatinine Glucose POC Glucose 126 H 116 H 129 H Lactic Acid Calcium Phosphorus Magnesium Direct Bilirubin AST ALT Alkaline Phosphatase Lactate Dehydrogenase Troponin T C-Reactive Protein Total Protein Albumin Prealbumin Triglycerides Cholesterol LDL Cholesterol Direct HDL Cholesterol Urine pH Urine WBC (Auto) Urine Creatinine Urine Total Protein Fluid Total Protein Vancomycin Trough Rheumatoid Factor Complement C4 Miscellaneous Test Crossmatch 10/07/16 10/07/16 10/07/16 03:45 05:00 10:00 WBC 17.0 H RBC 2.68 L Hgb 7.3 L Hct 25.3 L MCV MCH 27 L MCHC 29 L RDW 19.6 H Plt Count 74 L Lymph % (Auto) [place] % (Auto) Lymph # [place] # Baso # Seg Neutrophils % Seg Neuts % (Manual) Lymphocytes % (Manual) 12.0 L Monocytes % (Manual) Eosinophils % (Manual) Basophils % (Manual) Nucleated RBC % 4.0 H Seg Neutrophils # Seg Neutrophils # Man 10.7 H Lymphocytes # (Manual) Monocytes # (Manual) Eosinophils # (Manual) Basophils # (Manual) PT INR Fibrinogen dRVVT Confirm Interp Factor V Activity POC ABG pH POC ABG pCO2 POC ABG pO2 ABG pO2 ABG HCO3 ABG Base Excess ABG Hemoglobin Oxyhemoglobin Sodium 130 L Potassium 3.2 L Chloride 93.9 L Carbon Dioxide 20 L BUN 44 H Creatinine 2.7 H Glucose 129 H POC Glucose Lactic Acid Calcium 7.4 L Phosphorus Magnesium Direct Bilirubin AST ALT 6 L Alkaline Phosphatase 195 H Lactate Dehydrogenase Troponin T C-Reactive Protein Total Protein 4.9 L Albumin 1.0 L Prealbumin Triglycerides Cholesterol LDL Cholesterol Direct HDL Cholesterol Urine pH Urine WBC (Auto) Urine Creatinine Urine Total Protein Fluid Total Protein Vancomycin Trough Rheumatoid Factor Complement C4 Miscellaneous Test Flexitest 1 H Crossmatch 10/07/16 10/07/16 10/07/16 10:00 11:24 18:10 WBC RBC Hgb Hct MCV MCH MCHC RDW Plt Count Lymph % (Auto) [place] % (Auto) Lymph # [place] # Baso # Seg Neutrophils % Seg Neuts % (Manual) Lymphocytes % (Manual) Monocytes % (Manual) Eosinophils % (Manual) Basophils % (Manual) Nucleated RBC % Seg Neutrophils # Seg Neutrophils # Man Lymphocytes # (Manual) Monocytes # (Manual) Eosinophils # (Manual) Basophils # (Manual) PT INR Fibrinogen dRVVT Confirm Interp Factor V Activity POC ABG pH POC ABG pCO2 POC ABG pO2 ABG pO2 ABG HCO3 ABG Base Excess ABG Hemoglobin Oxyhemoglobin Sodium Potassium Chloride Carbon Dioxide BUN Creatinine Glucose POC Glucose 116 H 130 H Lactic Acid Calcium Phosphorus Magnesium Direct Bilirubin AST ALT Alkaline Phosphatase Lactate Dehydrogenase Troponin T C-Reactive Protein 19.40 H Total Protein Albumin Prealbumin Triglycerides Cholesterol LDL Cholesterol Direct HDL Cholesterol Urine pH Urine WBC (Auto) Urine Creatinine Urine Total Protein Fluid Total Protein Vancomycin Trough Rheumatoid Factor Complement C4 Miscellaneous Test Crossmatch 10/07/16 10/08/16 10/08/16 18:30 00:00 04:00 WBC RBC Hgb Hct MCV MCH MCHC RDW Plt Count Lymph % (Auto) [place] % (Auto) Lymph # [place] # Baso # Seg Neutrophils % Seg Neuts % (Manual) Lymphocytes % (Manual) Monocytes % (Manual) Eosinophils % (Manual) Basophils % (Manual) Nucleated RBC % Seg Neutrophils # Seg Neutrophils # Man Lymphocytes # (Manual) Monocytes # (Manual) Eosinophils # (Manual) Basophils # (Manual) PT INR Fibrinogen dRVVT Confirm Interp Factor V Activity POC ABG pH POC ABG pCO2 POC ABG pO2 ABG pO2 ABG HCO3 ABG Base Excess ABG Hemoglobin Oxyhemoglobin Sodium 132 L Potassium 3.3 L Chloride 93.6 L Carbon Dioxide 17 L BUN 59 H Creatinine 2.7 H Glucose 121 H POC Glucose 122 H Lactic Acid Calcium 7.6 L Phosphorus Magnesium Direct Bilirubin AST ALT Alkaline Phosphatase Lactate Dehydrogenase Troponin T C-Reactive Protein Total Protein Albumin Prealbumin Triglycerides Cholesterol LDL Cholesterol Direct HDL Cholesterol Urine pH Urine WBC (Auto) > 182.0 H Urine Creatinine Urine Total Protein Fluid Total Protein Vancomycin Trough Rheumatoid Factor Complement C4 Miscellaneous Test Crossmatch 10/08/16 10/08/16 10/08/16 04:30 05:30 11:51 WBC RBC 5.15 H Hgb 14.4 H D Hct 44.5 H D MCV MCH MCHC RDW 19.5 H Plt Count 56 L Lymph % (Auto) [place] % (Auto) Lymph # [place] # Baso # Seg Neutrophils % Seg Neuts % (Manual) 24.0 L Lymphocytes % (Manual) 8.0 L Monocytes % (Manual) Eosinophils % (Manual) Basophils % (Manual) Nucleated RBC % 9.0 H Seg Neutrophils # Seg Neutrophils # Man Lymphocytes # (Manual) 0.7 L Monocytes # (Manual) Eosinophils # (Manual) Basophils # (Manual) PT INR Fibrinogen dRVVT Confirm Interp Factor V Activity POC ABG pH POC ABG pCO2 POC ABG pO2 ABG pO2 ABG HCO3 ABG Base Excess ABG Hemoglobin Oxyhemoglobin Sodium Potassium Chloride Carbon Dioxide BUN Creatinine Glucose POC Glucose 125 H 150 H Lactic Acid Calcium Phosphorus Magnesium Direct Bilirubin AST ALT Alkaline Phosphatase Lactate Dehydrogenase Troponin T C-Reactive Protein Total Protein Albumin Prealbumin Triglycerides Cholesterol LDL Cholesterol Direct HDL Cholesterol Urine pH Urine WBC (Auto) Urine Creatinine Urine Total Protein Fluid Total Protein Vancomycin Trough Rheumatoid Factor Complement C4 Miscellaneous Test Crossmatch 10/08/16 10/08/16 10/08/16 12:49 17:07 19:30 WBC RBC Hgb 7.1 L D Hct 22.4 L D MCV MCH MCHC RDW Plt Count Lymph % (Auto) [place] % (Auto) Lymph # [place] # Baso # Seg Neutrophils % Seg Neuts % (Manual) Lymphocytes % (Manual) Monocytes % (Manual) Eosinophils % (Manual) Basophils % (Manual) Nucleated RBC % Seg Neutrophils # Seg Neutrophils # Man Lymphocytes # (Manual) Monocytes # (Manual) Eosinophils # (Manual) Basophils # (Manual) PT INR Fibrinogen dRVVT Confirm Interp Factor V Activity POC ABG pH POC ABG pCO2 28.2 L POC ABG pO2 111 H ABG pO2 ABG HCO3 ABG Base Excess ABG Hemoglobin Oxyhemoglobin Sodium Potassium Chloride Carbon Dioxide BUN Creatinine Glucose POC Glucose 145 H Lactic Acid Calcium Phosphorus Magnesium Direct Bilirubin AST ALT Alkaline Phosphatase Lactate Dehydrogenase Troponin T C-Reactive Protein Total Protein Albumin Prealbumin Triglycerides Cholesterol LDL Cholesterol Direct HDL Cholesterol Urine pH Urine WBC (Auto) Urine Creatinine Urine Total Protein Fluid Total Protein Vancomycin Trough Rheumatoid Factor Complement C4 Miscellaneous Test Crossmatch 10/08/16 10/09/16 10/09/16 19:30 03:45 03:45 WBC 12.6 H RBC 2.36 L Hgb 6.7 L Hct 21.1 L MCV MCH MCHC RDW 19.5 H Plt Count 75 L Lymph % (Auto) [place] % (Auto) Lymph # [place] # Baso # Seg Neutrophils % Seg Neuts % (Manual) Lymphocytes % (Manual) Monocytes % (Manual) 10.0 H Eosinophils % (Manual) Basophils % (Manual) Nucleated RBC % 3.0 H Seg Neutrophils # Seg Neutrophils # Man Lymphocytes # (Manual) Monocytes # (Manual) 1.3 H Eosinophils # (Manual) Basophils # (Manual) PT 18.0 H INR 1.41 H Fibrinogen dRVVT Confirm Interp Factor V Activity POC ABG pH POC ABG pCO2 POC ABG pO2 ABG pO2 ABG HCO3 ABG Base Excess ABG Hemoglobin Oxyhemoglobin Sodium 135 L Potassium Chloride Carbon Dioxide 17 L BUN 81 H Creatinine 3.2 H Glucose 109 H POC Glucose Lactic Acid Calcium 7.4 L Phosphorus 4.60 H D Magnesium Direct Bilirubin AST ALT Alkaline Phosphatase Lactate Dehydrogenase Troponin T C-Reactive Protein Total Protein Albumin Prealbumin Triglycerides Cholesterol LDL Cholesterol Direct HDL Cholesterol Urine pH Urine WBC (Auto) Urine Creatinine Urine Total Protein Fluid Total Protein Vancomycin Trough Rheumatoid Factor Complement C4 Miscellaneous Test Crossmatch 10/09/16 10/09/16 10/09/16 03:45 05:14 07:20 WBC RBC Hgb Hct MCV MCH MCHC RDW Plt Count Lymph % (Auto) [place] % (Auto) Lymph # [place] # Baso # Seg Neutrophils % Seg Neuts % (Manual) Lymphocytes % (Manual) Monocytes % (Manual) Eosinophils % (Manual) Basophils % (Manual) Nucleated RBC % Seg Neutrophils # Seg Neutrophils # Man Lymphocytes # (Manual) Monocytes # (Manual) Eosinophils # (Manual) Basophils # (Manual) PT 19.0 H INR 1.51 H Fibrinogen dRVVT Confirm Interp Factor V Activity POC ABG pH POC ABG pCO2 POC ABG pO2 ABG pO2 ABG HCO3 ABG Base Excess ABG Hemoglobin Oxyhemoglobin Sodium Potassium Chloride Carbon Dioxide BUN Creatinine Glucose POC Glucose 151 H Lactic Acid Calcium Phosphorus Magnesium Direct Bilirubin AST ALT Alkaline Phosphatase Lactate Dehydrogenase Troponin T C-Reactive Protein Total Protein Albumin Prealbumin Triglycerides Cholesterol LDL Cholesterol Direct HDL Cholesterol Urine pH Urine WBC (Auto) Urine Creatinine Urine Total Protein Fluid Total Protein Vancomycin Trough Rheumatoid Factor Complement C4 Miscellaneous Test Crossmatch See Detail 10/09/16 10/09/16 10/09/16 11:46 16:20 16:43 WBC RBC Hgb 7.2 L Hct 22.2 L MCV MCH MCHC RDW Plt Count Lymph % (Auto) [place] % (Auto) Lymph # [place] # Baso # Seg Neutrophils % Seg Neuts % (Manual) Lymphocytes % (Manual) Monocytes % (Manual) Eosinophils % (Manual) Basophils % (Manual) Nucleated RBC % Seg Neutrophils # Seg Neutrophils # Man Lymphocytes # (Manual) Monocytes # (Manual) Eosinophils # (Manual) Basophils # (Manual) PT INR Fibrinogen dRVVT Confirm Interp Factor V Activity POC ABG pH POC ABG pCO2 POC ABG pO2 ABG pO2 ABG HCO3 ABG Base Excess ABG Hemoglobin Oxyhemoglobin Sodium Potassium Chloride Carbon Dioxide BUN Creatinine Glucose POC Glucose 133 H 141 H Lactic Acid Calcium Phosphorus Magnesium Direct Bilirubin AST ALT Alkaline Phosphatase Lactate Dehydrogenase Troponin T C-Reactive Protein Total Protein Albumin Prealbumin Triglycerides Cholesterol LDL Cholesterol Direct HDL Cholesterol Urine pH Urine WBC (Auto) Urine Creatinine Urine Total Protein Fluid Total Protein Vancomycin Trough Rheumatoid Factor Complement C4 Miscellaneous Test Crossmatch 10/10/16 10/10/16 10/10/16 05:00 05:00 11:19 WBC 18.5 H RBC 2.19 L Hgb 6.4 L Hct 19.6 L* MCV MCH MCHC RDW 19.3 H Plt Count 93 L Lymph % (Auto) [place] % (Auto) Lymph # [place] # Baso # Seg Neutrophils % Seg Neuts % (Manual) Lymphocytes % (Manual) 10.0 L Monocytes % (Manual) Eosinophils % (Manual) Basophils % (Manual) Nucleated RBC % 4.0 H Seg Neutrophils # Seg Neutrophils # Man 11.3 H Lymphocytes # (Manual) Monocytes # (Manual) Eosinophils # (Manual) Basophils # (Manual) PT INR Fibrinogen dRVVT Confirm Interp Factor V Activity POC ABG pH POC ABG pCO2 POC ABG pO2 ABG pO2 ABG HCO3 ABG Base Excess ABG Hemoglobin Oxyhemoglobin Sodium Potassium 5.7 H D Chloride Carbon Dioxide 16 L BUN 94 H Creatinine 3.1 H Glucose 131 H POC Glucose 153 H Lactic Acid Calcium 8.2 L Phosphorus 5.10 H Magnesium 2.40 H Direct Bilirubin 0.3 H AST ALT < 5 L Alkaline Phosphatase 319 H Lactate Dehydrogenase Troponin T C-Reactive Protein Total Protein 5.1 L Albumin 1.0 L Prealbumin Triglycerides Cholesterol LDL Cholesterol Direct HDL Cholesterol Urine pH Urine WBC (Auto) Urine Creatinine Urine Total Protein Fluid Total Protein Vancomycin Trough Rheumatoid Factor Complement C4 Miscellaneous Test Crossmatch 10/10/16 10/10/16 10/11/16 17:50 23:30 04:15 WBC RBC Hgb Hct MCV MCH MCHC RDW Plt Count Lymph % (Auto) [place] % (Auto) Lymph # [place] # Baso # Seg Neutrophils % Seg Neuts % (Manual) Lymphocytes % (Manual) Monocytes % (Manual) Eosinophils % (Manual) Basophils % (Manual) Nucleated RBC % Seg Neutrophils # Seg Neutrophils # Man Lymphocytes # (Manual) Monocytes # (Manual) Eosinophils # (Manual) Basophils # (Manual) PT INR Fibrinogen dRVVT Confirm Interp Factor V Activity POC ABG pH POC ABG pCO2 POC ABG pO2 ABG pO2 ABG HCO3 ABG Base Excess ABG Hemoglobin Oxyhemoglobin Sodium Potassium Chloride 96.4 L Carbon Dioxide 21 L BUN 57 H Creatinine 2.1 H Glucose 151 H POC Glucose 146 H 141 H Lactic Acid Calcium 8.3 L Phosphorus Magnesium Direct Bilirubin AST ALT Alkaline Phosphatase Lactate Dehydrogenase Troponin T C-Reactive Protein Total Protein Albumin Prealbumin Triglycerides Cholesterol LDL Cholesterol Direct HDL Cholesterol Urine pH Urine WBC (Auto) Urine Creatinine Urine Total Protein Fluid Total Protein Vancomycin Trough Rheumatoid Factor Complement C4 Miscellaneous Test Crossmatch 10/11/16 10/11/16 10/11/16 04:15 04:15 05:30 WBC 28.3 H RBC 3.12 L Hgb 9.3 L Hct 28.7 L D MCV MCH MCHC RDW 17.7 H Plt Count 128 L Lymph % (Auto) [place] % (Auto) Lymph # [place] # Baso # Seg Neutrophils % Seg Neuts % (Manual) Lymphocytes % (Manual) Monocytes % (Manual) Eosinophils % (Manual) Basophils % (Manual) Nucleated RBC % Seg Neutrophils # Seg Neutrophils # Man Lymphocytes # (Manual) Monocytes # (Manual) Eosinophils # (Manual) Basophils # (Manual) PT INR Fibrinogen dRVVT Confirm Interp Factor V Activity POC ABG pH POC ABG pCO2 POC ABG pO2 ABG pO2 ABG HCO3 ABG Base Excess ABG Hemoglobin Oxyhemoglobin Sodium Potassium Chloride Carbon Dioxide BUN Creatinine Glucose POC Glucose 167 H Lactic Acid Calcium Phosphorus Magnesium Direct Bilirubin AST ALT Alkaline Phosphatase Lactate Dehydrogenase Troponin T C-Reactive Protein 15.80 H Total Protein Albumin Prealbumin Triglycerides Cholesterol LDL Cholesterol Direct HDL Cholesterol Urine pH Urine WBC (Auto) Urine Creatinine Urine Total Protein Fluid Total Protein Vancomycin Trough Rheumatoid Factor Complement C4 Miscellaneous Test Crossmatch 10/11/16 10/11/16 10/11/16 11:40 15:49 23:57 WBC RBC Hgb Hct MCV MCH MCHC RDW Plt Count Lymph % (Auto) [place] % (Auto) Lymph # [place] # Baso # Seg Neutrophils % Seg Neuts % (Manual) Lymphocytes % (Manual) Monocytes % (Manual) Eosinophils % (Manual) Basophils % (Manual) Nucleated RBC % Seg Neutrophils # Seg Neutrophils # Man Lymphocytes # (Manual) Monocytes # (Manual) Eosinophils # (Manual) Basophils # (Manual) PT INR Fibrinogen dRVVT Confirm Interp Factor V Activity POC ABG pH POC ABG pCO2 POC ABG pO2 ABG pO2 ABG HCO3 ABG Base Excess ABG Hemoglobin Oxyhemoglobin Sodium Potassium Chloride Carbon Dioxide BUN Creatinine Glucose POC Glucose 139 H 168 H 161 H Lactic Acid Calcium Phosphorus Magnesium Direct Bilirubin AST ALT Alkaline Phosphatase Lactate Dehydrogenase Troponin T C-Reactive Protein Total Protein Albumin Prealbumin Triglycerides Cholesterol LDL Cholesterol Direct HDL Cholesterol Urine pH Urine WBC (Auto) Urine Creatinine Urine Total Protein Fluid Total Protein Vancomycin Trough Rheumatoid Factor Complement C4 Miscellaneous Test Crossmatch 10/12/16 10/12/16 10/12/16 04:40 04:40 05:44 WBC 22.5 H RBC 2.88 L Hgb 8.8 L Hct 26.8 L MCV MCH MCHC RDW 17.8 H Plt Count Lymph % (Auto) [place] % (Auto) Lymph # [place] # Baso # Seg Neutrophils % Seg Neuts % (Manual) Lymphocytes % (Manual) Monocytes % (Manual) Eosinophils % (Manual) Basophils % (Manual) Nucleated RBC % Seg Neutrophils # Seg Neutrophils # Man Lymphocytes # (Manual) Monocytes # (Manual) Eosinophils # (Manual) Basophils # (Manual) PT INR Fibrinogen dRVVT Confirm Interp Factor V Activity POC ABG pH POC ABG pCO2 POC ABG pO2 ABG pO2 ABG HCO3 ABG Base Excess ABG Hemoglobin Oxyhemoglobin Sodium 134 L Potassium Chloride 93.0 L Carbon Dioxide BUN 74 H Creatinine 2.5 H Glucose 137 H POC Glucose 158 H Lactic Acid Calcium 8.2 L Phosphorus Magnesium Direct Bilirubin AST ALT Alkaline Phosphatase Lactate Dehydrogenase Troponin T C-Reactive Protein Total Protein Albumin Prealbumin Triglycerides Cholesterol LDL Cholesterol Direct HDL Cholesterol Urine pH Urine WBC (Auto) Urine Creatinine Urine Total Protein Fluid Total Protein Vancomycin Trough Rheumatoid Factor Complement C4 Miscellaneous Test Crossmatch 10/12/16 10/12/16 10/12/16 12:27 18:18 23:46 WBC RBC Hgb Hct MCV MCH MCHC RDW Plt Count Lymph % (Auto) [place] % (Auto) Lymph # [place] # Baso # Seg Neutrophils % Seg Neuts % (Manual) Lymphocytes % (Manual) Monocytes % (Manual) Eosinophils % (Manual) Basophils % (Manual) Nucleated RBC % Seg Neutrophils # Seg Neutrophils # Man Lymphocytes # (Manual) Monocytes # (Manual) Eosinophils # (Manual) Basophils # (Manual) PT INR Fibrinogen dRVVT Confirm Interp Factor V Activity POC ABG pH POC ABG pCO2 POC ABG pO2 ABG pO2 ABG HCO3 ABG Base Excess ABG Hemoglobin Oxyhemoglobin Sodium Potassium Chloride Carbon Dioxide BUN Creatinine Glucose POC Glucose 153 H 140 H 150 H Lactic Acid Calcium Phosphorus Magnesium Direct Bilirubin AST ALT Alkaline Phosphatase Lactate Dehydrogenase Troponin T C-Reactive Protein Total Protein Albumin Prealbumin Triglycerides Cholesterol LDL Cholesterol Direct HDL Cholesterol Urine pH Urine WBC (Auto) Urine Creatinine Urine Total Protein Fluid Total Protein Vancomycin Trough Rheumatoid Factor Complement C4 Miscellaneous Test Crossmatch 10/13/16 10/13/16 10/13/16 06:22 09:20 12:29 WBC RBC Hgb Hct MCV MCH MCHC RDW Plt Count Lymph % (Auto) [place] % (Auto) Lymph # [place] # Baso # Seg Neutrophils % Seg Neuts % (Manual) Lymphocytes % (Manual) Monocytes % (Manual) Eosinophils % (Manual) Basophils % (Manual) Nucleated RBC % Seg Neutrophils # Seg Neutrophils # Man Lymphocytes # (Manual) Monocytes # (Manual) Eosinophils # (Manual) Basophils # (Manual) PT INR Fibrinogen dRVVT Confirm Interp Factor V Activity POC ABG pH POC ABG pCO2 POC ABG pO2 ABG pO2 ABG HCO3 ABG Base Excess ABG Hemoglobin Oxyhemoglobin Sodium Potassium Chloride Carbon Dioxide BUN Creatinine Glucose POC Glucose 165 H 193 H Lactic Acid Calcium Phosphorus Magnesium Direct Bilirubin AST ALT Alkaline Phosphatase Lactate Dehydrogenase Troponin T C-Reactive Protein Total Protein Albumin Prealbumin Triglycerides Cholesterol LDL Cholesterol Direct HDL Cholesterol Urine pH Urine WBC (Auto) Urine Creatinine Urine Total Protein Fluid Total Protein Vancomycin Trough Rheumatoid Factor Complement C4 Miscellaneous Test Flexitest 1 H Crossmatch 10/13/16 10/13/16 10/13/16 18:09 Unknown Unknown WBC 23.4 H RBC 2.83 L Hgb 8.7 L Hct 26.1 L MCV MCH MCHC RDW 18.1 H Plt Count Lymph % (Auto) [place] % (Auto) Lymph # [place] # Baso # Seg Neutrophils % Seg Neuts % (Manual) Lymphocytes % (Manual) Monocytes % (Manual) Eosinophils % (Manual) Basophils % (Manual) Nucleated RBC % Seg Neutrophils # Seg Neutrophils # Man Lymphocytes # (Manual) Monocytes # (Manual) Eosinophils # (Manual) Basophils # (Manual) PT INR Fibrinogen dRVVT Confirm Interp Factor V Activity POC ABG pH POC ABG pCO2 POC ABG pO2 ABG pO2 ABG HCO3 ABG Base Excess ABG Hemoglobin Oxyhemoglobin Sodium Potassium Chloride 95.8 L Carbon Dioxide BUN 82 H Creatinine 2.6 H Glucose 152 H POC Glucose 166 H Lactic Acid Calcium Phosphorus Magnesium Direct Bilirubin AST ALT Alkaline Phosphatase Lactate Dehydrogenase Troponin T C-Reactive Protein Total Protein Albumin Prealbumin Triglycerides Cholesterol LDL Cholesterol Direct HDL Cholesterol Urine pH Urine WBC (Auto) Urine Creatinine Urine Total Protein Fluid Total Protein Vancomycin Trough Rheumatoid Factor Complement C4 Miscellaneous Test Crossmatch 10/14/16 10/14/16 10/14/16 05:38 06:35 08:10 WBC 20.7 H RBC 2.81 L Hgb 8.4 L Hct 27.2 L MCV MCH MCHC RDW 19.4 H Plt Count Lymph % (Auto) [place] % (Auto) Lymph # [place] # Baso # Seg Neutrophils % Seg Neuts % (Manual) Lymphocytes % (Manual) Monocytes % (Manual) Eosinophils % (Manual) Basophils % (Manual) Nucleated RBC % Seg Neutrophils # Seg Neutrophils # Man Lymphocytes # (Manual) Monocytes # (Manual) Eosinophils # (Manual) Basophils # (Manual) PT INR Fibrinogen dRVVT Confirm Interp Factor V Activity POC ABG pH POC ABG pCO2 POC ABG pO2 ABG pO2 ABG HCO3 ABG Base Excess ABG Hemoglobin Oxyhemoglobin Sodium Potassium Chloride Carbon Dioxide BUN 58 H Creatinine 1.9 H Glucose 169 H POC Glucose 195 H Lactic Acid Calcium Phosphorus Magnesium Direct Bilirubin AST ALT Alkaline Phosphatase Lactate Dehydrogenase Troponin T C-Reactive Protein Total Protein Albumin Prealbumin Triglycerides Cholesterol LDL Cholesterol Direct HDL Cholesterol Urine pH Urine WBC (Auto) Urine Creatinine Urine Total Protein Fluid Total Protein Vancomycin Trough Rheumatoid Factor Complement C4 Miscellaneous Test Crossmatch 10/14/16 10/14/16 10/14/16 11:44 17:13 23:28 WBC RBC Hgb Hct MCV MCH MCHC RDW Plt Count Lymph % (Auto) [place] % (Auto) Lymph # [place] # Baso # Seg Neutrophils % Seg Neuts % (Manual) Lymphocytes % (Manual) Monocytes % (Manual) Eosinophils % (Manual) Basophils % (Manual) Nucleated RBC % Seg Neutrophils # Seg Neutrophils # Man Lymphocytes # (Manual) Monocytes # (Manual) Eosinophils # (Manual) Basophils # (Manual) PT INR Fibrinogen dRVVT Confirm Interp Factor V Activity POC ABG pH POC ABG pCO2 POC ABG pO2 ABG pO2 ABG HCO3 ABG Base Excess ABG Hemoglobin Oxyhemoglobin Sodium Potassium Chloride Carbon Dioxide BUN Creatinine Glucose POC Glucose 174 H 121 H 151 H Lactic Acid Calcium Phosphorus Magnesium Direct Bilirubin AST ALT Alkaline Phosphatase Lactate Dehydrogenase Troponin T C-Reactive Protein Total Protein Albumin Prealbumin Triglycerides Cholesterol LDL Cholesterol Direct HDL Cholesterol Urine pH Urine WBC (Auto) Urine Creatinine Urine Total Protein Fluid Total Protein Vancomycin Trough Rheumatoid Factor Complement C4 Miscellaneous Test Crossmatch 10/15/16 10/15/16 10/15/16 05:06 12:26 17:48 WBC RBC Hgb Hct MCV MCH MCHC RDW Plt Count Lymph % (Auto) [place] % (Auto) Lymph # [place] # Baso # Seg Neutrophils % Seg Neuts % (Manual) Lymphocytes % (Manual) Monocytes % (Manual) Eosinophils % (Manual) Basophils % (Manual) Nucleated RBC % Seg Neutrophils # Seg Neutrophils # Man Lymphocytes # (Manual) Monocytes # (Manual) Eosinophils # (Manual) Basophils # (Manual) PT INR Fibrinogen dRVVT Confirm Interp Factor V Activity POC ABG pH POC ABG pCO2 POC ABG pO2 ABG pO2 ABG HCO3 ABG Base Excess ABG Hemoglobin Oxyhemoglobin Sodium Potassium Chloride Carbon Dioxide BUN Creatinine Glucose POC Glucose 151 H 149 H 153 H Lactic Acid Calcium Phosphorus Magnesium Direct Bilirubin AST ALT Alkaline Phosphatase Lactate Dehydrogenase Troponin T C-Reactive Protein Total Protein Albumin Prealbumin Triglycerides Cholesterol LDL Cholesterol Direct HDL Cholesterol Urine pH Urine WBC (Auto) Urine Creatinine Urine Total Protein Fluid Total Protein Vancomycin Trough Rheumatoid Factor Complement C4 Miscellaneous Test Crossmatch 10/15/16 10/15/16 10/16/16 Unknown Unknown 00:02 WBC 23.4 H RBC 2.78 L Hgb 8.5 L Hct 25.7 L MCV MCH MCHC RDW 18.7 H Plt Count Lymph % (Auto) [place] % (Auto) Lymph # [place] # Baso # Seg Neutrophils % Seg Neuts % (Manual) Lymphocytes % (Manual) Monocytes % (Manual) Eosinophils % (Manual) Basophils % (Manual) Nucleated RBC % Seg Neutrophils # Seg Neutrophils # Man Lymphocytes # (Manual) Monocytes # (Manual) Eosinophils # (Manual) Basophils # (Manual) PT INR Fibrinogen dRVVT Confirm Interp Factor V Activity POC ABG pH POC ABG pCO2 POC ABG pO2 ABG pO2 ABG HCO3 ABG Base Excess ABG Hemoglobin Oxyhemoglobin Sodium Potassium Chloride Carbon Dioxide BUN 73 H Creatinine 2.3 H Glucose 120 H POC Glucose 137 H Lactic Acid Calcium Phosphorus Magnesium Direct Bilirubin AST ALT Alkaline Phosphatase Lactate Dehydrogenase Troponin T C-Reactive Protein Total Protein Albumin Prealbumin Triglycerides Cholesterol LDL Cholesterol Direct HDL Cholesterol Urine pH Urine WBC (Auto) Urine Creatinine Urine Total Protein Fluid Total Protein Vancomycin Trough Rheumatoid Factor Complement C4 Miscellaneous Test Crossmatch 10/16/16 10/16/16 10/16/16 05:44 06:25 06:25 WBC 22.5 H RBC 2.76 L Hgb 8.3 L Hct 25.2 L MCV MCH MCHC RDW 18.3 H Plt Count Lymph % (Auto) [place] % (Auto) Lymph # [place] # Baso # Seg Neutrophils % Seg Neuts % (Manual) Lymphocytes % (Manual) Monocytes % (Manual) Eosinophils % (Manual) Basophils % (Manual) Nucleated RBC % Seg Neutrophils # Seg Neutrophils # Man Lymphocytes # (Manual) Monocytes # (Manual) Eosinophils # (Manual) Basophils # (Manual) PT INR Fibrinogen dRVVT Confirm Interp Factor V Activity POC ABG pH POC ABG pCO2 POC ABG pO2 ABG pO2 ABG HCO3 ABG Base Excess ABG Hemoglobin Oxyhemoglobin Sodium Potassium Chloride Carbon Dioxide BUN 92 H Creatinine 3.0 H Glucose 138 H POC Glucose 110 H Lactic Acid Calcium Phosphorus Magnesium Direct Bilirubin AST ALT Alkaline Phosphatase Lactate Dehydrogenase Troponin T C-Reactive Protein Total Protein Albumin Prealbumin Triglycerides Cholesterol LDL Cholesterol Direct HDL Cholesterol Urine pH Urine WBC (Auto) Urine Creatinine Urine Total Protein Fluid Total Protein Vancomycin Trough Rheumatoid Factor Complement C4 Miscellaneous Test Crossmatch 10/16/16 10/16/16 10/16/16 11:27 11:48 17:36 WBC RBC Hgb Hct MCV MCH MCHC RDW Plt Count Lymph % (Auto) [place] % (Auto) Lymph # [place] # Baso # Seg Neutrophils % Seg Neuts % (Manual) Lymphocytes % (Manual) Monocytes % (Manual) Eosinophils % (Manual) Basophils % (Manual) Nucleated RBC % Seg Neutrophils # Seg Neutrophils # Man Lymphocytes # (Manual) Monocytes # (Manual) Eosinophils # (Manual) Basophils # (Manual) PT INR Fibrinogen dRVVT Confirm Interp Factor V Activity POC ABG pH 7.582 H POC ABG pCO2 27.4 L POC ABG pO2 110 H ABG pO2 ABG HCO3 ABG Base Excess ABG Hemoglobin Oxyhemoglobin Sodium Potassium Chloride Carbon Dioxide BUN Creatinine Glucose POC Glucose 121 H 133 H Lactic Acid Calcium Phosphorus Magnesium Direct Bilirubin AST ALT Alkaline Phosphatase Lactate Dehydrogenase Troponin T C-Reactive Protein Total Protein Albumin Prealbumin Triglycerides Cholesterol LDL Cholesterol Direct HDL Cholesterol Urine pH Urine WBC (Auto) Urine Creatinine Urine Total Protein Fluid Total Protein Vancomycin Trough Rheumatoid Factor Complement C4 Miscellaneous Test Crossmatch 10/16/16 10/17/16 10/17/16 20:48 04:24 04:24 WBC 21.4 H RBC 2.72 L Hgb 8.0 L Hct 25.2 L MCV MCH MCHC RDW 18.0 H Plt Count Lymph % (Auto) [place] % (Auto) Lymph # [place] # Baso # Seg Neutrophils % Seg Neuts % (Manual) Lymphocytes % (Manual) Monocytes % (Manual) Eosinophils % (Manual) Basophils % (Manual) Nucleated RBC % Seg Neutrophils # Seg Neutrophils # Man Lymphocytes # (Manual) Monocytes # (Manual) Eosinophils # (Manual) Basophils # (Manual) PT INR Fibrinogen dRVVT Confirm Interp Factor V Activity POC ABG pH 7.561 H POC ABG pCO2 24.4 L POC ABG pO2 77 L ABG pO2 ABG HCO3 ABG Base Excess ABG Hemoglobin Oxyhemoglobin Sodium 148 H Potassium Chloride Carbon Dioxide BUN 104 H Creatinine 3.0 H Glucose 149 H POC Glucose Lactic Acid Calcium Phosphorus Magnesium Direct Bilirubin AST ALT Alkaline Phosphatase 138 H Lactate Dehydrogenase Troponin T C-Reactive Protein Total Protein 6.2 L Albumin 1.5 L Prealbumin Triglycerides Cholesterol LDL Cholesterol Direct HDL Cholesterol Urine pH Urine WBC (Auto) Urine Creatinine Urine Total Protein Fluid Total Protein Vancomycin Trough Rheumatoid Factor Complement C4 Miscellaneous Test Crossmatch 10/17/16 10/17/16 10/17/16 06:02 12:17 17:14 WBC RBC Hgb Hct MCV MCH MCHC RDW Plt Count Lymph % (Auto) [place] % (Auto) Lymph # [place] # Baso # Seg Neutrophils % Seg Neuts % (Manual) Lymphocytes % (Manual) Monocytes % (Manual) Eosinophils % (Manual) Basophils % (Manual) Nucleated RBC % Seg Neutrophils # Seg Neutrophils # Man Lymphocytes # (Manual) Monocytes # (Manual) Eosinophils # (Manual) Basophils # (Manual) PT INR Fibrinogen dRVVT Confirm Interp Factor V Activity POC ABG pH POC ABG pCO2 POC ABG pO2 ABG pO2 ABG HCO3 ABG Base Excess ABG Hemoglobin Oxyhemoglobin Sodium Potassium Chloride Carbon Dioxide BUN Creatinine Glucose POC Glucose 170 H 167 H 126 H Lactic Acid Calcium Phosphorus Magnesium Direct Bilirubin AST ALT Alkaline Phosphatase Lactate Dehydrogenase Troponin T C-Reactive Protein Total Protein Albumin Prealbumin Triglycerides Cholesterol LDL Cholesterol Direct HDL Cholesterol Urine pH Urine WBC (Auto) Urine Creatinine Urine Total Protein Fluid Total Protein Vancomycin Trough Rheumatoid Factor Complement C4 Miscellaneous Test Crossmatch 10/17/16 10/18/16 10/18/16 23:17 04:00 04:00 WBC 20.7 H RBC 2.47 L Hgb 7.4 L Hct 22.9 L MCV MCH MCHC RDW 17.5 H Plt Count Lymph % (Auto) [place] % (Auto) Lymph # [place] # Baso # Seg Neutrophils % Seg Neuts % (Manual) Lymphocytes % (Manual) Monocytes % (Manual) Eosinophils % (Manual) Basophils % (Manual) Nucleated RBC % Seg Neutrophils # Seg Neutrophils # Man Lymphocytes # (Manual) Monocytes # (Manual) Eosinophils # (Manual) Basophils # (Manual) PT INR Fibrinogen dRVVT Confirm Interp Factor V Activity POC ABG pH POC ABG pCO2 POC ABG pO2 ABG pO2 ABG HCO3 ABG Base Excess ABG Hemoglobin Oxyhemoglobin Sodium 149 H Potassium Chloride 107.9 H Carbon Dioxide 20 L BUN 117 H Creatinine 3.2 H Glucose 119 H POC Glucose 121 H Lactic Acid Calcium Phosphorus Magnesium Direct Bilirubin AST ALT Alkaline Phosphatase Lactate Dehydrogenase Troponin T C-Reactive Protein Total Protein Albumin Prealbumin Triglycerides Cholesterol LDL Cholesterol Direct HDL Cholesterol Urine pH Urine WBC (Auto) Urine Creatinine Urine Total Protein Fluid Total Protein Vancomycin Trough Rheumatoid Factor Complement C4 Miscellaneous Test Crossmatch 10/18/16 10/18/16 10/18/16 05:23 10:46 17:30 WBC RBC Hgb Hct MCV MCH MCHC RDW Plt Count Lymph % (Auto) [place] % (Auto) Lymph # [place] # Baso # Seg Neutrophils % Seg Neuts % (Manual) Lymphocytes % (Manual) Monocytes % (Manual) Eosinophils % (Manual) Basophils % (Manual) Nucleated RBC % Seg Neutrophils # Seg Neutrophils # Man Lymphocytes # (Manual) Monocytes # (Manual) Eosinophils # (Manual) Basophils # (Manual) PT INR Fibrinogen dRVVT Confirm Interp Factor V Activity POC ABG pH POC ABG pCO2 POC ABG pO2 ABG pO2 ABG HCO3 ABG Base Excess ABG Hemoglobin Oxyhemoglobin Sodium Potassium Chloride Carbon Dioxide BUN Creatinine Glucose POC Glucose 119 H 155 H 124 H Lactic Acid Calcium Phosphorus Magnesium Direct Bilirubin AST ALT Alkaline Phosphatase Lactate Dehydrogenase Troponin T C-Reactive Protein Total Protein Albumin Prealbumin Triglycerides Cholesterol LDL Cholesterol Direct HDL Cholesterol Urine pH Urine WBC (Auto) Urine Creatinine Urine Total Protein Fluid Total Protein Vancomycin Trough Rheumatoid Factor Complement C4 Miscellaneous Test Crossmatch 10/19/16 10/19/16 10/19/16 04:00 04:00 05:25 WBC 17.4 H RBC 2.54 L Hgb 7.7 L Hct 23.6 L MCV MCH MCHC RDW 17.3 H Plt Count Lymph % (Auto) [place] % (Auto) Lymph # [place] # Baso # Seg Neutrophils % Seg Neuts % (Manual) Lymphocytes % (Manual) Monocytes % (Manual) Eosinophils % (Manual) Basophils % (Manual) Nucleated RBC % Seg Neutrophils # Seg Neutrophils # Man Lymphocytes # (Manual) Monocytes # (Manual) Eosinophils # (Manual) Basophils # (Manual) PT INR Fibrinogen dRVVT Confirm Interp Factor V Activity POC ABG pH POC ABG pCO2 POC ABG pO2 ABG pO2 ABG HCO3 ABG Base Excess ABG Hemoglobin Oxyhemoglobin Sodium Potassium Chloride Carbon Dioxide BUN 72 H Creatinine 2.1 H Glucose 116 H POC Glucose 119 H Lactic Acid Calcium Phosphorus Magnesium Direct Bilirubin AST ALT Alkaline Phosphatase Lactate Dehydrogenase Troponin T C-Reactive Protein Total Protein Albumin Prealbumin Triglycerides Cholesterol LDL Cholesterol Direct HDL Cholesterol Urine pH Urine WBC (Auto) Urine Creatinine Urine Total Protein Fluid Total Protein Vancomycin Trough Rheumatoid Factor Complement C4 Miscellaneous Test Crossmatch 10/19/16 10/19/16 10/20/16 11:46 23:59 06:00 WBC RBC Hgb Hct MCV MCH MCHC RDW Plt Count Lymph % (Auto) [place] % (Auto) Lymph # [place] # Baso # Seg Neutrophils % Seg Neuts % (Manual) Lymphocytes % (Manual) Monocytes % (Manual) Eosinophils % (Manual) Basophils % (Manual) Nucleated RBC % Seg Neutrophils # Seg Neutrophils # Man Lymphocytes # (Manual) Monocytes # (Manual) Eosinophils # (Manual) Basophils # (Manual) PT INR Fibrinogen dRVVT Confirm Interp Factor V Activity POC ABG pH POC ABG pCO2 POC ABG pO2 ABG pO2 ABG HCO3 ABG Base Excess ABG Hemoglobin Oxyhemoglobin Sodium Potassium Chloride Carbon Dioxide 17 L BUN 94 H Creatinine 2.7 H Glucose POC Glucose 116 H 117 H Lactic Acid Calcium Phosphorus Magnesium Direct Bilirubin AST ALT Alkaline Phosphatase Lactate Dehydrogenase Troponin T C-Reactive Protein Total Protein Albumin Prealbumin Triglycerides Cholesterol LDL Cholesterol Direct HDL Cholesterol Urine pH Urine WBC (Auto) Urine Creatinine Urine Total Protein Fluid Total Protein Vancomycin Trough Rheumatoid Factor Complement C4 Miscellaneous Test Crossmatch 10/20/16 10/20/16 10/20/16 06:00 11:49 16:00 WBC 19.7 H RBC 2.51 L Hgb 7.7 L Hct 23.5 L MCV MCH MCHC RDW 17.5 H Plt Count Lymph % (Auto) [place] % (Auto) Lymph # [place] # Baso # Seg Neutrophils % Seg Neuts % (Manual) Lymphocytes % (Manual) Monocytes % (Manual) Eosinophils % (Manual) Basophils % (Manual) Nucleated RBC % Seg Neutrophils # Seg Neutrophils # Man Lymphocytes # (Manual) Monocytes # (Manual) Eosinophils # (Manual) Basophils # (Manual) PT INR Fibrinogen dRVVT Confirm Interp Factor V Activity POC ABG pH POC ABG pCO2 POC ABG pO2 ABG pO2 ABG HCO3 ABG Base Excess ABG Hemoglobin Oxyhemoglobin Sodium Potassium Chloride Carbon Dioxide BUN Creatinine Glucose POC Glucose 117 H Lactic Acid Calcium Phosphorus Magnesium Direct Bilirubin AST ALT Alkaline Phosphatase Lactate Dehydrogenase Troponin T C-Reactive Protein Total Protein Albumin Prealbumin Triglycerides Cholesterol LDL Cholesterol Direct HDL Cholesterol Urine pH Urine WBC (Auto) Urine Creatinine Urine Total Protein Fluid Total Protein Vancomycin Trough Rheumatoid Factor Complement C4 Miscellaneous Test Flexitest 1 H Crossmatch 10/20/16 10/20/16 10/21/16 18:36 23:39 04:00 WBC RBC Hgb Hct MCV MCH MCHC RDW Plt Count Lymph % (Auto) [place] % (Auto) Lymph # [place] # Baso # Seg Neutrophils % Seg Neuts % (Manual) Lymphocytes % (Manual) Monocytes % (Manual) Eosinophils % (Manual) Basophils % (Manual) Nucleated RBC % Seg Neutrophils # Seg Neutrophils # Man Lymphocytes # (Manual) Monocytes # (Manual) Eosinophils # (Manual) Basophils # (Manual) PT INR Fibrinogen dRVVT Confirm Interp Factor V Activity POC ABG pH POC ABG pCO2 POC ABG pO2 ABG pO2 ABG HCO3 ABG Base Excess ABG Hemoglobin Oxyhemoglobin Sodium Potassium 5.4 H D Chloride Carbon Dioxide 15 L BUN 110 H Creatinine 3.0 H Glucose POC Glucose 127 H 114 H Lactic Acid Calcium Phosphorus Magnesium Direct Bilirubin AST ALT Alkaline Phosphatase Lactate Dehydrogenase Troponin T C-Reactive Protein Total Protein Albumin Prealbumin Triglycerides Cholesterol LDL Cholesterol Direct HDL Cholesterol Urine pH Urine WBC (Auto) Urine Creatinine Urine Total Protein Fluid Total Protein Vancomycin Trough Rheumatoid Factor Complement C4 Miscellaneous Test Crossmatch 10/21/16 10/21/16 10/22/16 05:54 23:46 05:18 WBC RBC Hgb Hct MCV MCH MCHC RDW Plt Count Lymph % (Auto) [place] % (Auto) Lymph # [place] # Baso # Seg Neutrophils % Seg Neuts % (Manual) Lymphocytes % (Manual) Monocytes % (Manual) Eosinophils % (Manual) Basophils % (Manual) Nucleated RBC % Seg Neutrophils # Seg Neutrophils # Man Lymphocytes # (Manual) Monocytes # (Manual) Eosinophils # (Manual) Basophils # (Manual) PT INR Fibrinogen dRVVT Confirm Interp Factor V Activity POC ABG pH POC ABG pCO2 POC ABG pO2 ABG pO2 ABG HCO3 ABG Base Excess ABG Hemoglobin Oxyhemoglobin Sodium Potassium Chloride Carbon Dioxide BUN Creatinine Glucose POC Glucose 119 H 108 H 109 H Lactic Acid Calcium Phosphorus Magnesium Direct Bilirubin AST ALT Alkaline Phosphatase Lactate Dehydrogenase Troponin T C-Reactive Protein Total Protein Albumin Prealbumin Triglycerides Cholesterol LDL Cholesterol Direct HDL Cholesterol Urine pH Urine WBC (Auto) Urine Creatinine Urine Total Protein Fluid Total Protein Vancomycin Trough Rheumatoid Factor Complement C4 Miscellaneous Test Crossmatch 10/22/16 10/22/16 10/22/16 06:40 06:40 06:40 WBC 14.0 H RBC 2.03 L Hgb 7.0 L Hct 20.5 L MCV 98 H MCH 34 H MCHC 35 H RDW 17.8 H Plt Count Lymph % (Auto) [place] % (Auto) 9.9 H Lymph # [place] # 1.4 H Baso # 0.2 H Seg Neutrophils % 72.0 H Seg Neuts % (Manual) Lymphocytes % (Manual) Monocytes % (Manual) Eosinophils % (Manual) Basophils % (Manual) Nucleated RBC % Seg Neutrophils # 10.0 H Seg Neutrophils # Man Lymphocytes # (Manual) Monocytes # (Manual) Eosinophils # (Manual) Basophils # (Manual) PT INR Fibrinogen dRVVT Confirm Interp Factor V Activity POC ABG pH POC ABG pCO2 POC ABG pO2 ABG pO2 ABG HCO3 ABG Base Excess ABG Hemoglobin Oxyhemoglobin Sodium 130 L D Potassium Chloride 92.4 L Carbon Dioxide 20 L BUN 50 H Creatinine 1.6 H Glucose 589 H* POC Glucose Lactic Acid Calcium 7.8 L D Phosphorus Magnesium 1.60 L Direct Bilirubin AST ALT Alkaline Phosphatase Lactate Dehydrogenase Troponin T C-Reactive Protein Total Protein Albumin Prealbumin Triglycerides Cholesterol LDL Cholesterol Direct HDL Cholesterol Urine pH Urine WBC (Auto) Urine Creatinine Urine Total Protein Fluid Total Protein Vancomycin Trough Rheumatoid Factor Complement C4 Miscellaneous Test Crossmatch 10/22/16 10/22/16 10/22/16 11:39 16:44 23:36 WBC RBC Hgb Hct MCV MCH MCHC RDW Plt Count Lymph % (Auto) [place] % (Auto) Lymph # [place] # Baso # Seg Neutrophils % Seg Neuts % (Manual) Lymphocytes % (Manual) Monocytes % (Manual) Eosinophils % (Manual) Basophils % (Manual) Nucleated RBC % Seg Neutrophils # Seg Neutrophils # Man Lymphocytes # (Manual) Monocytes # (Manual) Eosinophils # (Manual) Basophils # (Manual) PT INR Fibrinogen dRVVT Confirm Interp Factor V Activity POC ABG pH POC ABG pCO2 POC ABG pO2 ABG pO2 ABG HCO3 ABG Base Excess ABG Hemoglobin Oxyhemoglobin Sodium Potassium Chloride Carbon Dioxide BUN Creatinine Glucose POC Glucose 142 H 163 H 123 H Lactic Acid Calcium Phosphorus Magnesium Direct Bilirubin AST ALT Alkaline Phosphatase Lactate Dehydrogenase Troponin T C-Reactive Protein Total Protein Albumin Prealbumin Triglycerides Cholesterol LDL Cholesterol Direct HDL Cholesterol Urine pH Urine WBC (Auto) Urine Creatinine Urine Total Protein Fluid Total Protein Vancomycin Trough Rheumatoid Factor Complement C4 Miscellaneous Test Crossmatch 10/23/16 10/23/16 10/23/16 04:58 06:00 12:12 WBC RBC Hgb Hct MCV MCH MCHC RDW Plt Count Lymph % (Auto) [place] % (Auto) Lymph # [place] # Baso # Seg Neutrophils % Seg Neuts % (Manual) Lymphocytes % (Manual) Monocytes % (Manual) Eosinophils % (Manual) Basophils % (Manual) Nucleated RBC % Seg Neutrophils # Seg Neutrophils # Man Lymphocytes # (Manual) Monocytes # (Manual) Eosinophils # (Manual) Basophils # (Manual) PT INR Fibrinogen dRVVT Confirm Interp Factor V Activity POC ABG pH POC ABG pCO2 POC ABG pO2 ABG pO2 ABG HCO3 ABG Base Excess ABG Hemoglobin Oxyhemoglobin Sodium 133 L Potassium 3.5 L Chloride 96.1 L Carbon Dioxide 18 L BUN 76 H Creatinine 2.1 H Glucose POC Glucose 133 H 138 H Lactic Acid Calcium 8.3 L Phosphorus Magnesium Direct Bilirubin AST ALT Alkaline Phosphatase Lactate Dehydrogenase Troponin T C-Reactive Protein Total Protein Albumin Prealbumin Triglycerides Cholesterol LDL Cholesterol Direct HDL Cholesterol Urine pH Urine WBC (Auto) Urine Creatinine Urine Total Protein Fluid Total Protein Vancomycin Trough Rheumatoid Factor Complement C4 Miscellaneous Test Crossmatch 10/23/16 10/23/16 10/24/16 16:53 23:37 04:00 WBC RBC Hgb Hct MCV MCH MCHC RDW Plt Count Lymph % (Auto) [place] % (Auto) Lymph # [place] # Baso # Seg Neutrophils % Seg Neuts % (Manual) Lymphocytes % (Manual) Monocytes % (Manual) Eosinophils % (Manual) Basophils % (Manual) Nucleated RBC % Seg Neutrophils # Seg Neutrophils # Man Lymphocytes # (Manual) Monocytes # (Manual) Eosinophils # (Manual) Basophils # (Manual) PT INR Fibrinogen dRVVT Confirm Interp Factor V Activity POC ABG pH POC ABG pCO2 POC ABG pO2 ABG pO2 ABG HCO3 ABG Base Excess ABG Hemoglobin Oxyhemoglobin Sodium 131 L Potassium Chloride 94.5 L Carbon Dioxide 19 L BUN 97 H Creatinine 2.6 H Glucose 110 H POC Glucose 125 H 123 H Lactic Acid Calcium 8.3 L Phosphorus Magnesium Direct Bilirubin AST ALT Alkaline Phosphatase Lactate Dehydrogenase Troponin T C-Reactive Protein Total Protein Albumin Prealbumin Triglycerides Cholesterol LDL Cholesterol Direct HDL Cholesterol Urine pH Urine WBC (Auto) Urine Creatinine Urine Total Protein Fluid Total Protein Vancomycin Trough Rheumatoid Factor Complement C4 Miscellaneous Test Crossmatch 10/24/16 10/24/16 10/24/16 07:49 11:39 17:52 WBC RBC Hgb 6.0 L Hct 19.7 L* MCV MCH MCHC RDW Plt Count Lymph % (Auto) [place] % (Auto) Lymph # [place] # Baso # Seg Neutrophils % Seg Neuts % (Manual) Lymphocytes % (Manual) Monocytes % (Manual) Eosinophils % (Manual) Basophils % (Manual) Nucleated RBC % Seg Neutrophils # Seg Neutrophils # Man Lymphocytes # (Manual) Monocytes # (Manual) Eosinophils # (Manual) Basophils # (Manual) PT INR Fibrinogen dRVVT Confirm Interp Factor V Activity POC ABG pH POC ABG pCO2 POC ABG pO2 ABG pO2 ABG HCO3 ABG Base Excess ABG Hemoglobin Oxyhemoglobin Sodium Potassium Chloride Carbon Dioxide BUN Creatinine Glucose POC Glucose 106 H 158 H Lactic Acid Calcium Phosphorus Magnesium Direct Bilirubin AST ALT Alkaline Phosphatase Lactate Dehydrogenase Troponin T C-Reactive Protein Total Protein Albumin Prealbumin Triglycerides Cholesterol LDL Cholesterol Direct HDL Cholesterol Urine pH Urine WBC (Auto) Urine Creatinine Urine Total Protein Fluid Total Protein Vancomycin Trough Rheumatoid Factor Complement C4 Miscellaneous Test Crossmatch 10/24/16 10/24/16 10/24/16 20:00 22:27 Unknown WBC RBC Hgb 9.4 L D Hct 27.5 L D MCV MCH MCHC RDW Plt Count Lymph % (Auto) [place] % (Auto) Lymph # [place] # Baso # Seg Neutrophils % Seg Neuts % (Manual) Lymphocytes % (Manual) Monocytes % (Manual) Eosinophils % (Manual) Basophils % (Manual) Nucleated RBC % Seg Neutrophils # Seg Neutrophils # Man Lymphocytes # (Manual) Monocytes # (Manual) Eosinophils # (Manual) Basophils # (Manual) PT INR Fibrinogen dRVVT Confirm Interp Factor V Activity POC ABG pH POC ABG pCO2 POC ABG pO2 ABG pO2 ABG HCO3 ABG Base Excess ABG Hemoglobin Oxyhemoglobin Sodium Potassium Chloride Carbon Dioxide BUN Creatinine Glucose POC Glucose 125 H Lactic Acid Calcium Phosphorus Magnesium Direct Bilirubin AST ALT Alkaline Phosphatase Lactate Dehydrogenase Troponin T C-Reactive Protein Total Protein Albumin Prealbumin Triglycerides Cholesterol LDL Cholesterol Direct HDL Cholesterol Urine pH Urine WBC (Auto) Urine Creatinine Urine Total Protein Fluid Total Protein Vancomycin Trough Rheumatoid Factor Complement C4 Miscellaneous Test Crossmatch See Detail 10/25/16 10/25/16 10/25/16 04:00 04:00 04:00 WBC 14.2 H RBC 2.98 L Hgb 9.0 L Hct 26.2 L MCV MCH MCHC RDW 16.6 H Plt Count Lymph % (Auto) [place] % (Auto) 10.7 H Lymph # [place] # 1.5 H Baso # Seg Neutrophils % 73.6 H Seg Neuts % (Manual) Lymphocytes % (Manual) Monocytes % (Manual) Eosinophils % (Manual) Basophils % (Manual) Nucleated RBC % Seg Neutrophils # 10.5 H Seg Neutrophils # Man Lymphocytes # (Manual) Monocytes # (Manual) Eosinophils # (Manual) Basophils # (Manual) PT INR Fibrinogen dRVVT Confirm Interp Factor V Activity POC ABG pH POC ABG pCO2 POC ABG pO2 ABG pO2 ABG HCO3 ABG Base Excess ABG Hemoglobin Oxyhemoglobin Sodium 132 L Potassium Chloride 94.7 L Carbon Dioxide BUN 51 H Creatinine 1.6 H Glucose 130 H POC Glucose Lactic Acid Calcium 8.3 L Phosphorus 1.60 L D Magnesium Direct Bilirubin AST ALT Alkaline Phosphatase Lactate Dehydrogenase Troponin T C-Reactive Protein Total Protein Albumin Prealbumin Triglycerides Cholesterol LDL Cholesterol Direct HDL Cholesterol Urine pH Urine WBC (Auto) Urine Creatinine Urine Total Protein Fluid Total Protein Vancomycin Trough Rheumatoid Factor Complement C4 Miscellaneous Test Crossmatch 10/25/16 10/25/16 10/25/16 04:32 11:48 17:22 WBC RBC Hgb Hct MCV MCH MCHC RDW Plt Count Lymph % (Auto) [place] % (Auto) Lymph # [place] # Baso # Seg Neutrophils % Seg Neuts % (Manual) Lymphocytes % (Manual) Monocytes % (Manual) Eosinophils % (Manual) Basophils % (Manual) Nucleated RBC % Seg Neutrophils # Seg Neutrophils # Man Lymphocytes # (Manual) Monocytes # (Manual) Eosinophils # (Manual) Basophils # (Manual) PT INR Fibrinogen dRVVT Confirm Interp Factor V Activity POC ABG pH POC ABG pCO2 POC ABG pO2 ABG pO2 ABG HCO3 ABG Base Excess ABG Hemoglobin Oxyhemoglobin Sodium Potassium Chloride Carbon Dioxide BUN Creatinine Glucose POC Glucose 124 H 171 H 120 H Lactic Acid Calcium Phosphorus Magnesium Direct Bilirubin AST ALT Alkaline Phosphatase Lactate Dehydrogenase Troponin T C-Reactive Protein Total Protein Albumin Prealbumin Triglycerides Cholesterol LDL Cholesterol Direct HDL Cholesterol Urine pH Urine WBC (Auto) Urine Creatinine Urine Total Protein Fluid Total Protein Vancomycin Trough Rheumatoid Factor Complement C4 Miscellaneous Test Crossmatch 10/26/16 10/26/16 10/26/16 04:54 07:06 07:06 WBC 16.9 H RBC 3.06 L Hgb 9.1 L Hct 26.9 L MCV MCH MCHC RDW 16.9 H Plt Count Lymph % (Auto) [place] % (Auto) Lymph # [place] # Baso # Seg Neutrophils % Seg Neuts % (Manual) 71.0 H Lymphocytes % (Manual) 5.0 L Monocytes % (Manual) 12.0 H Eosinophils % (Manual) Basophils % (Manual) Nucleated RBC % Seg Neutrophils # Seg Neutrophils # Man 12.0 H Lymphocytes # (Manual) 0.8 L Monocytes # (Manual) 2.0 H Eosinophils # (Manual) Basophils # (Manual) PT INR Fibrinogen dRVVT Confirm Interp Factor V Activity POC ABG pH POC ABG pCO2 POC ABG pO2 ABG pO2 ABG HCO3 ABG Base Excess ABG Hemoglobin Oxyhemoglobin Sodium 135 L Potassium Chloride 97.1 L Carbon Dioxide BUN 73 H Creatinine 2.2 H Glucose 117 H POC Glucose 123 H Lactic Acid Calcium Phosphorus 1.70 L Magnesium Direct Bilirubin AST ALT Alkaline Phosphatase Lactate Dehydrogenase Troponin T C-Reactive Protein Total Protein Albumin Prealbumin Triglycerides Cholesterol LDL Cholesterol Direct HDL Cholesterol Urine pH Urine WBC (Auto) Urine Creatinine Urine Total Protein Fluid Total Protein Vancomycin Trough Rheumatoid Factor Complement C4 Miscellaneous Test Crossmatch 10/26/16 10/26/16 10/26/16 12:12 17:29 23:42 WBC RBC Hgb Hct MCV MCH MCHC RDW Plt Count Lymph % (Auto) [place] % (Auto) Lymph # [place] # Baso # Seg Neutrophils % Seg Neuts % (Manual) Lymphocytes % (Manual) Monocytes % (Manual) Eosinophils % (Manual) Basophils % (Manual) Nucleated RBC % Seg Neutrophils # Seg Neutrophils # Man Lymphocytes # (Manual) Monocytes # (Manual) Eosinophils # (Manual) Basophils # (Manual) PT INR Fibrinogen dRVVT Confirm Interp Factor V Activity POC ABG pH POC ABG pCO2 POC ABG pO2 ABG pO2 ABG HCO3 ABG Base Excess ABG Hemoglobin Oxyhemoglobin Sodium Potassium Chloride Carbon Dioxide BUN Creatinine Glucose POC Glucose 126 H 161 H 118 H Lactic Acid Calcium Phosphorus Magnesium Direct Bilirubin AST ALT Alkaline Phosphatase Lactate Dehydrogenase Troponin T C-Reactive Protein Total Protein Albumin Prealbumin Triglycerides Cholesterol LDL Cholesterol Direct HDL Cholesterol Urine pH Urine WBC (Auto) Urine Creatinine Urine Total Protein Fluid Total Protein Vancomycin Trough Rheumatoid Factor Complement C4 Miscellaneous Test Crossmatch 10/27/16 10/27/16 10/27/16 05:03 06:30 06:30 WBC 13.9 H RBC 3.09 L Hgb 9.2 L Hct 27.5 L MCV MCH MCHC RDW 17.0 H Plt Count Lymph % (Auto) [place] % (Auto) Lymph # [place] # Baso # Seg Neutrophils % Seg Neuts % (Manual) 78.0 H Lymphocytes % (Manual) Monocytes % (Manual) Eosinophils % (Manual) Basophils % (Manual) Nucleated RBC % 2.0 H Seg Neutrophils # Seg Neutrophils # Man 10.8 H Lymphocytes # (Manual) Monocytes # (Manual) 1.0 H Eosinophils # (Manual) Basophils # (Manual) PT INR Fibrinogen dRVVT Confirm Interp Factor V Activity POC ABG pH POC ABG pCO2 POC ABG pO2 ABG pO2 ABG HCO3 ABG Base Excess ABG Hemoglobin Oxyhemoglobin Sodium Potassium Chloride Carbon Dioxide BUN 40 H Creatinine 1.5 H Glucose 135 H POC Glucose 107 H Lactic Acid Calcium 8.3 L Phosphorus 1.30 L D Magnesium Direct Bilirubin AST ALT Alkaline Phosphatase Lactate Dehydrogenase Troponin T C-Reactive Protein Total Protein Albumin Prealbumin Triglycerides Cholesterol LDL Cholesterol Direct HDL Cholesterol Urine pH Urine WBC (Auto) Urine Creatinine Urine Total Protein Fluid Total Protein Vancomycin Trough Rheumatoid Factor Complement C4 Miscellaneous Test Crossmatch 10/27/16 10/27/16 10/27/16 13:27 18:07 23:40 WBC RBC Hgb Hct MCV MCH MCHC RDW Plt Count Lymph % (Auto) [place] % (Auto) Lymph # [place] # Baso # Seg Neutrophils % Seg Neuts % (Manual) Lymphocytes % (Manual) Monocytes % (Manual) Eosinophils % (Manual) Basophils % (Manual) Nucleated RBC % Seg Neutrophils # Seg Neutrophils # Man Lymphocytes # (Manual) Monocytes # (Manual) Eosinophils # (Manual) Basophils # (Manual) PT INR Fibrinogen dRVVT Confirm Interp Factor V Activity POC ABG pH POC ABG pCO2 POC ABG pO2 ABG pO2 ABG HCO3 ABG Base Excess ABG Hemoglobin Oxyhemoglobin Sodium Potassium Chloride Carbon Dioxide BUN Creatinine Glucose POC Glucose 117 H 121 H 118 H Lactic Acid Calcium Phosphorus Magnesium Direct Bilirubin AST ALT Alkaline Phosphatase Lactate Dehydrogenase Troponin T C-Reactive Protein Total Protein Albumin Prealbumin Triglycerides Cholesterol LDL Cholesterol Direct HDL Cholesterol Urine pH Urine WBC (Auto) Urine Creatinine Urine Total Protein Fluid Total Protein Vancomycin Trough Rheumatoid Factor Complement C4 Miscellaneous Test Crossmatch 10/28/16 10/28/16 10/28/16 05:48 06:45 06:45 WBC 14.7 H RBC 3.05 L Hgb 9.0 L Hct 26.9 L MCV MCH MCHC RDW 16.8 H Plt Count Lymph % (Auto) 8.2 L [place] % (Auto) 8.4 H Lymph # [place] # 1.2 H Baso # Seg Neutrophils % 81.9 H Seg Neuts % (Manual) Lymphocytes % (Manual) Monocytes % (Manual) Eosinophils % (Manual) Basophils % (Manual) Nucleated RBC % Seg Neutrophils # 12.1 H Seg Neutrophils # Man Lymphocytes # (Manual) Monocytes # (Manual) Eosinophils # (Manual) Basophils # (Manual) PT INR Fibrinogen dRVVT Confirm Interp Factor V Activity POC ABG pH POC ABG pCO2 POC ABG pO2 ABG pO2 ABG HCO3 ABG Base Excess ABG Hemoglobin Oxyhemoglobin Sodium Potassium Chloride Carbon Dioxide BUN 60 H Creatinine 1.9 H Glucose 120 H POC Glucose 114 H Lactic Acid Calcium Phosphorus Magnesium Direct Bilirubin AST ALT Alkaline Phosphatase Lactate Dehydrogenase Troponin T C-Reactive Protein Total Protein Albumin Prealbumin Triglycerides Cholesterol LDL Cholesterol Direct HDL Cholesterol Urine pH Urine WBC (Auto) Urine Creatinine Urine Total Protein Fluid Total Protein Vancomycin Trough Rheumatoid Factor Complement C4 Miscellaneous Test Crossmatch 10/28/16 10/28/16 10/29/16 17:08 23:50 05:10 WBC RBC Hgb Hct MCV MCH MCHC RDW Plt Count Lymph % (Auto) [place] % (Auto) Lymph # [place] # Baso # Seg Neutrophils % Seg Neuts % (Manual) Lymphocytes % (Manual) Monocytes % (Manual) Eosinophils % (Manual) Basophils % (Manual) Nucleated RBC % Seg Neutrophils # Seg Neutrophils # Man Lymphocytes # (Manual) Monocytes # (Manual) Eosinophils # (Manual) Basophils # (Manual) PT INR Fibrinogen dRVVT Confirm Interp Factor V Activity POC ABG pH POC ABG pCO2 POC ABG pO2 ABG pO2 ABG HCO3 ABG Base Excess ABG Hemoglobin Oxyhemoglobin Sodium Potassium Chloride Carbon Dioxide BUN Creatinine Glucose POC Glucose 109 H 110 H 124 H Lactic Acid Calcium Phosphorus Magnesium Direct Bilirubin AST ALT Alkaline Phosphatase Lactate Dehydrogenase Troponin T C-Reactive Protein Total Protein Albumin Prealbumin Triglycerides Cholesterol LDL Cholesterol Direct HDL Cholesterol Urine pH Urine WBC (Auto) Urine Creatinine Urine Total Protein Fluid Total Protein Vancomycin Trough Rheumatoid Factor Complement C4 Miscellaneous Test Crossmatch 10/29/16 10/29/16 10/29/16 07:45 07:45 12:19 WBC 14.7 H RBC 3.15 L Hgb 9.3 L Hct 28.9 L MCV MCH MCHC RDW 17.0 H Plt Count Lymph % (Auto) 11.9 L [place] % (Auto) 8.6 H Lymph # [place] # 1.3 H Baso # Seg Neutrophils % 78.1 H Seg Neuts % (Manual) Lymphocytes % (Manual) Monocytes % (Manual) Eosinophils % (Manual) Basophils % (Manual) Nucleated RBC % Seg Neutrophils # 11.4 H Seg Neutrophils # Man Lymphocytes # (Manual) Monocytes # (Manual) Eosinophils # (Manual) Basophils # (Manual) PT INR Fibrinogen dRVVT Confirm Interp Factor V Activity POC ABG pH POC ABG pCO2 POC ABG pO2 ABG pO2 ABG HCO3 ABG Base Excess ABG Hemoglobin Oxyhemoglobin Sodium Potassium 5.1 H Chloride Carbon Dioxide 19 L BUN 78 H Creatinine 2.2 H Glucose 116 H POC Glucose 118 H Lactic Acid Calcium Phosphorus Magnesium Direct Bilirubin AST ALT Alkaline Phosphatase Lactate Dehydrogenase Troponin T C-Reactive Protein Total Protein Albumin Prealbumin Triglycerides Cholesterol LDL Cholesterol Direct HDL Cholesterol Urine pH Urine WBC (Auto) Urine Creatinine Urine Total Protein Fluid Total Protein Vancomycin Trough Rheumatoid Factor Complement C4 Miscellaneous Test Crossmatch 10/29/16 10/30/16 10/30/16 17:49 01:52 03:28 WBC RBC Hgb Hct MCV MCH MCHC RDW Plt Count Lymph % (Auto) [place] % (Auto) Lymph # [place] # Baso # Seg Neutrophils % Seg Neuts % (Manual) Lymphocytes % (Manual) Monocytes % (Manual) Eosinophils % (Manual) Basophils % (Manual) Nucleated RBC % Seg Neutrophils # Seg Neutrophils # Man Lymphocytes # (Manual) Monocytes # (Manual) Eosinophils # (Manual) Basophils # (Manual) PT INR Fibrinogen dRVVT Confirm Interp Factor V Activity POC ABG pH POC ABG pCO2 POC ABG pO2 ABG pO2 ABG HCO3 ABG Base Excess ABG Hemoglobin Oxyhemoglobin Sodium Potassium 5.4 H Chloride 97.5 L Carbon Dioxide 19 L BUN 90 H Creatinine 2.5 H Glucose POC Glucose 120 H 129 H Lactic Acid Calcium Phosphorus 5.20 H Magnesium Direct Bilirubin AST ALT Alkaline Phosphatase Lactate Dehydrogenase Troponin T C-Reactive Protein Total Protein Albumin Prealbumin Triglycerides Cholesterol LDL Cholesterol Direct HDL Cholesterol Urine pH Urine WBC (Auto) Urine Creatinine Urine Total Protein Fluid Total Protein Vancomycin Trough Rheumatoid Factor Complement C4 Miscellaneous Test Crossmatch 10/30/16 10/30/16 10/30/16 03:28 08:19 08:19 WBC 11.6 H 15.9 H RBC 2.75 L 2.82 L Hgb 7.9 L 8.3 L Hct 24.2 L 25.2 L MCV MCH MCHC RDW 16.7 H 17.2 H Plt Count Lymph % (Auto) [place] % (Auto) 9.8 H Lymph # [place] # 1.1 H Baso # Seg Neutrophils % 74.2 H Seg Neuts % (Manual) Lymphocytes % (Manual) Monocytes % (Manual) Eosinophils % (Manual) Basophils % (Manual) Nucleated RBC % Seg Neutrophils # 8.6 H Seg Neutrophils # Man Lymphocytes # (Manual) Monocytes # (Manual) Eosinophils # (Manual) Basophils # (Manual) PT INR Fibrinogen dRVVT Confirm Interp Factor V Activity POC ABG pH POC ABG pCO2 POC ABG pO2 ABG pO2 ABG HCO3 ABG Base Excess ABG Hemoglobin Oxyhemoglobin Sodium Potassium 5.3 H Chloride 97.4 L Carbon Dioxide 19 L BUN 93 H Creatinine 2.6 H Glucose POC Glucose Lactic Acid Calcium Phosphorus Magnesium Direct Bilirubin AST ALT Alkaline Phosphatase Lactate Dehydrogenase Troponin T C-Reactive Protein Total Protein Albumin Prealbumin Triglycerides Cholesterol LDL Cholesterol Direct HDL Cholesterol Urine pH Urine WBC (Auto) Urine Creatinine Urine Total Protein Fluid Total Protein Vancomycin Trough Rheumatoid Factor Complement C4 Miscellaneous Test Crossmatch 10/30/16 10/30/16 10/31/16 17:11 23:56 00:40 WBC RBC Hgb Hct MCV MCH MCHC RDW Plt Count Lymph % (Auto) [place] % (Auto) Lymph # [place] # Baso # Seg Neutrophils % Seg Neuts % (Manual) Lymphocytes % (Manual) Monocytes % (Manual) Eosinophils % (Manual) Basophils % (Manual) Nucleated RBC % Seg Neutrophils # Seg Neutrophils # Man Lymphocytes # (Manual) Monocytes # (Manual) Eosinophils # (Manual) Basophils # (Manual) PT INR Fibrinogen dRVVT Confirm Interp Factor V Activity POC ABG pH POC ABG pCO2 POC ABG pO2 ABG pO2 ABG HCO3 ABG Base Excess ABG Hemoglobin Oxyhemoglobin Sodium Potassium Chloride Carbon Dioxide BUN Creatinine Glucose POC Glucose 106 H 117 H 120 H Lactic Acid Calcium Phosphorus Magnesium Direct Bilirubin AST ALT Alkaline Phosphatase Lactate Dehydrogenase Troponin T C-Reactive Protein Total Protein Albumin Prealbumin Triglycerides Cholesterol LDL Cholesterol Direct HDL Cholesterol Urine pH Urine WBC (Auto) Urine Creatinine Urine Total Protein Fluid Total Protein Vancomycin Trough Rheumatoid Factor Complement C4 Miscellaneous Test Crossmatch 10/31/16 10/31/16 10/31/16 05:43 07:15 07:15 WBC 12.1 H RBC 2.63 L Hgb 7.7 L Hct 23.3 L MCV MCH MCHC RDW 16.7 H Plt Count Lymph % (Auto) 11.7 L [place] % (Auto) 7.7 H Lymph # [place] # 0.9 H Baso # Seg Neutrophils % 78.0 H Seg Neuts % (Manual) Lymphocytes % (Manual) Monocytes % (Manual) Eosinophils % (Manual) Basophils % (Manual) Nucleated RBC % Seg Neutrophils # 9.4 H Seg Neutrophils # Man Lymphocytes # (Manual) Monocytes # (Manual) Eosinophils # (Manual) Basophils # (Manual) PT INR Fibrinogen dRVVT Confirm Interp Factor V Activity POC ABG pH POC ABG pCO2 POC ABG pO2 ABG pO2 ABG HCO3 ABG Base Excess ABG Hemoglobin Oxyhemoglobin Sodium Potassium Chloride 96.4 L Carbon Dioxide 21 L BUN 99 H Creatinine 2.6 H Glucose 144 H POC Glucose 125 H Lactic Acid Calcium Phosphorus 4.80 H Magnesium Direct Bilirubin AST ALT Alkaline Phosphatase Lactate Dehydrogenase Troponin T C-Reactive Protein Total Protein Albumin Prealbumin Triglycerides Cholesterol LDL Cholesterol Direct HDL Cholesterol Urine pH Urine WBC (Auto) Urine Creatinine Urine Total Protein Fluid Total Protein Vancomycin Trough Rheumatoid Factor Complement C4 Miscellaneous Test Crossmatch 10/31/16 10/31/16 11/01/16 11:46 18:34 00:20 WBC RBC Hgb Hct MCV MCH MCHC RDW Plt Count Lymph % (Auto) [place] % (Auto) Lymph # [place] # Baso # Seg Neutrophils % Seg Neuts % (Manual) Lymphocytes % (Manual) Monocytes % (Manual) Eosinophils % (Manual) Basophils % (Manual) Nucleated RBC % Seg Neutrophils # Seg Neutrophils # Man Lymphocytes # (Manual) Monocytes # (Manual) Eosinophils # (Manual) Basophils # (Manual) PT INR Fibrinogen dRVVT Confirm Interp Factor V Activity POC ABG pH POC ABG pCO2 POC ABG pO2 ABG pO2 ABG HCO3 ABG Base Excess ABG Hemoglobin Oxyhemoglobin Sodium Potassium Chloride Carbon Dioxide BUN Creatinine Glucose POC Glucose 159 H 140 H 132 H Lactic Acid Calcium Phosphorus Magnesium Direct Bilirubin AST ALT Alkaline Phosphatase Lactate Dehydrogenase Troponin T C-Reactive Protein Total Protein Albumin Prealbumin Triglycerides Cholesterol LDL Cholesterol Direct HDL Cholesterol Urine pH Urine WBC (Auto) Urine Creatinine Urine Total Protein Fluid Total Protein Vancomycin Trough Rheumatoid Factor Complement C4 Miscellaneous Test Crossmatch 11/01/16 11/01/16 11/01/16 04:55 04:55 06:11 WBC 11.2 H RBC 2.68 L Hgb 7.5 L Hct 23.7 L MCV MCH MCHC RDW 16.1 H Plt Count Lymph % (Auto) [place] % (Auto) 9.8 H Lymph # [place] # 1.1 H Baso # Seg Neutrophils % 70.8 H Seg Neuts % (Manual) Lymphocytes % (Manual) Monocytes % (Manual) Eosinophils % (Manual) Basophils % (Manual) Nucleated RBC % Seg Neutrophils # 7.9 H Seg Neutrophils # Man Lymphocytes # (Manual) Monocytes # (Manual) Eosinophils # (Manual) Basophils # (Manual) PT INR Fibrinogen dRVVT Confirm Interp Factor V Activity POC ABG pH POC ABG pCO2 POC ABG pO2 ABG pO2 ABG HCO3 ABG Base Excess ABG Hemoglobin Oxyhemoglobin Sodium Potassium 3.3 L D Chloride Carbon Dioxide BUN 61 H Creatinine 1.9 H Glucose 114 H POC Glucose 115 H Lactic Acid Calcium Phosphorus 1.80 L D Magnesium Direct Bilirubin AST ALT Alkaline Phosphatase Lactate Dehydrogenase Troponin T C-Reactive Protein Total Protein Albumin Prealbumin Triglycerides Cholesterol LDL Cholesterol Direct HDL Cholesterol Urine pH Urine WBC (Auto) Urine Creatinine Urine Total Protein Fluid Total Protein Vancomycin Trough Rheumatoid Factor Complement C4 Miscellaneous Test Crossmatch 11/01/16 11/01/16 11/01/16 12:29 18:23 23:58 WBC RBC Hgb Hct MCV MCH MCHC RDW Plt Count Lymph % (Auto) [place] % (Auto) Lymph # [place] # Baso # Seg Neutrophils % Seg Neuts % (Manual) Lymphocytes % (Manual) Monocytes % (Manual) Eosinophils % (Manual) Basophils % (Manual) Nucleated RBC % Seg Neutrophils # Seg Neutrophils # Man Lymphocytes # (Manual) Monocytes # (Manual) Eosinophils # (Manual) Basophils # (Manual) PT INR Fibrinogen dRVVT Confirm Interp Factor V Activity POC ABG pH POC ABG pCO2 POC ABG pO2 ABG pO2 ABG HCO3 ABG Base Excess ABG Hemoglobin Oxyhemoglobin Sodium Potassium Chloride Carbon Dioxide BUN Creatinine Glucose POC Glucose 142 H 143 H 128 H Lactic Acid Calcium Phosphorus Magnesium Direct Bilirubin AST ALT Alkaline Phosphatase Lactate Dehydrogenase Troponin T C-Reactive Protein Total Protein Albumin Prealbumin Triglycerides Cholesterol LDL Cholesterol Direct HDL Cholesterol Urine pH Urine WBC (Auto) Urine Creatinine Urine Total Protein Fluid Total Protein Vancomycin Trough Rheumatoid Factor Complement C4 Miscellaneous Test Crossmatch 11/02/16 11/02/16 11/02/16 04:16 05:29 11:58 WBC RBC Hgb Hct MCV MCH MCHC RDW Plt Count Lymph % (Auto) [place] % (Auto) Lymph # [place] # Baso # Seg Neutrophils % Seg Neuts % (Manual) Lymphocytes % (Manual) Monocytes % (Manual) Eosinophils % (Manual) Basophils % (Manual) Nucleated RBC % Seg Neutrophils # Seg Neutrophils # Man Lymphocytes # (Manual) Monocytes # (Manual) Eosinophils # (Manual) Basophils # (Manual) PT INR Fibrinogen dRVVT Confirm Interp Factor V Activity POC ABG pH POC ABG pCO2 POC ABG pO2 ABG pO2 ABG HCO3 ABG Base Excess ABG Hemoglobin Oxyhemoglobin Sodium Potassium 3.1 L Chloride Carbon Dioxide BUN 73 H Creatinine 2.3 H Glucose 112 H POC Glucose 135 H 149 H Lactic Acid Calcium Phosphorus Magnesium Direct Bilirubin AST ALT Alkaline Phosphatase Lactate Dehydrogenase Troponin T C-Reactive Protein Total Protein Albumin Prealbumin Triglycerides Cholesterol LDL Cholesterol Direct HDL Cholesterol Urine pH Urine WBC (Auto) Urine Creatinine Urine Total Protein Fluid Total Protein Vancomycin Trough Rheumatoid Factor Complement C4 Miscellaneous Test Crossmatch 11/02/16 11/02/16 11/03/16 17:42 22:54 06:00 WBC RBC Hgb Hct MCV MCH MCHC RDW Plt Count Lymph % (Auto) [place] % (Auto) Lymph # [place] # Baso # Seg Neutrophils % Seg Neuts % (Manual) Lymphocytes % (Manual) Monocytes % (Manual) Eosinophils % (Manual) Basophils % (Manual) Nucleated RBC % Seg Neutrophils # Seg Neutrophils # Man Lymphocytes # (Manual) Monocytes # (Manual) Eosinophils # (Manual) Basophils # (Manual) PT INR Fibrinogen dRVVT Confirm Interp Factor V Activity POC ABG pH POC ABG pCO2 POC ABG pO2 ABG pO2 ABG HCO3 ABG Base Excess ABG Hemoglobin Oxyhemoglobin Sodium Potassium Chloride 96.7 L Carbon Dioxide BUN 41 H Creatinine 1.5 H Glucose 145 H POC Glucose 182 H 115 H Lactic Acid Calcium Phosphorus 1.60 L D Magnesium 1.50 L Direct Bilirubin AST ALT Alkaline Phosphatase Lactate Dehydrogenase Troponin T C-Reactive Protein Total Protein Albumin Prealbumin Triglycerides Cholesterol LDL Cholesterol Direct HDL Cholesterol Urine pH Urine WBC (Auto) Urine Creatinine Urine Total Protein Fluid Total Protein Vancomycin Trough Rheumatoid Factor Complement C4 Miscellaneous Test Crossmatch 11/03/16 11/03/16 11/03/16 11:53 17:45 23:37 WBC RBC Hgb Hct MCV MCH MCHC RDW Plt Count Lymph % (Auto) [place] % (Auto) Lymph # [place] # Baso # Seg Neutrophils % Seg Neuts % (Manual) Lymphocytes % (Manual) Monocytes % (Manual) Eosinophils % (Manual) Basophils % (Manual) Nucleated RBC % Seg Neutrophils # Seg Neutrophils # Man Lymphocytes # (Manual) Monocytes # (Manual) Eosinophils # (Manual) Basophils # (Manual) PT INR Fibrinogen dRVVT Confirm Interp Factor V Activity POC ABG pH POC ABG pCO2 POC ABG pO2 ABG pO2 ABG HCO3 ABG Base Excess ABG Hemoglobin Oxyhemoglobin Sodium Potassium Chloride Carbon Dioxide BUN Creatinine Glucose POC Glucose 131 H 134 H 113 H Lactic Acid Calcium Phosphorus Magnesium Direct Bilirubin AST ALT Alkaline Phosphatase Lactate Dehydrogenase Troponin T C-Reactive Protein Total Protein Albumin Prealbumin Triglycerides Cholesterol LDL Cholesterol Direct HDL Cholesterol Urine pH Urine WBC (Auto) Urine Creatinine Urine Total Protein Fluid Total Protein Vancomycin Trough Rheumatoid Factor Complement C4 Miscellaneous Test Crossmatch 11/04/16 11/04/16 11/04/16 05:41 06:00 12:10 WBC RBC Hgb Hct MCV MCH MCHC RDW Plt Count Lymph % (Auto) [place] % (Auto) Lymph # [place] # Baso # Seg Neutrophils % Seg Neuts % (Manual) Lymphocytes % (Manual) Monocytes % (Manual) Eosinophils % (Manual) Basophils % (Manual) Nucleated RBC % Seg Neutrophils # Seg Neutrophils # Man Lymphocytes # (Manual) Monocytes # (Manual) Eosinophils # (Manual) Basophils # (Manual) PT INR Fibrinogen dRVVT Confirm Interp Factor V Activity POC ABG pH POC ABG pCO2 POC ABG pO2 ABG pO2 ABG HCO3 ABG Base Excess ABG Hemoglobin Oxyhemoglobin Sodium Potassium Chloride 96.7 L Carbon Dioxide BUN 52 H Creatinine 1.9 H Glucose 126 H POC Glucose 137 H 191 H Lactic Acid Calcium Phosphorus Magnesium Direct Bilirubin AST ALT Alkaline Phosphatase Lactate Dehydrogenase Troponin T C-Reactive Protein Total Protein Albumin Prealbumin Triglycerides Cholesterol LDL Cholesterol Direct HDL Cholesterol Urine pH Urine WBC (Auto) Urine Creatinine Urine Total Protein Fluid Total Protein Vancomycin Trough Rheumatoid Factor Complement C4 Miscellaneous Test Crossmatch 11/04/16 11/05/16 11/05/16 22:57 03:10 05:10 WBC RBC Hgb Hct MCV MCH MCHC RDW Plt Count Lymph % (Auto) [place] % (Auto) Lymph # [place] # Baso # Seg Neutrophils % Seg Neuts % (Manual) Lymphocytes % (Manual) Monocytes % (Manual) Eosinophils % (Manual) Basophils % (Manual) Nucleated RBC % Seg Neutrophils # Seg Neutrophils # Man Lymphocytes # (Manual) Monocytes # (Manual) Eosinophils # (Manual) Basophils # (Manual) PT INR Fibrinogen dRVVT Confirm Interp Factor V Activity POC ABG pH POC ABG pCO2 POC ABG pO2 ABG pO2 ABG HCO3 ABG Base Excess ABG Hemoglobin Oxyhemoglobin Sodium 136 L Potassium Chloride 97.2 L Carbon Dioxide BUN 32 H Creatinine 1.3 H Glucose 123 H POC Glucose 125 H 108 H Lactic Acid Calcium 7.8 L Phosphorus Magnesium Direct Bilirubin AST ALT Alkaline Phosphatase Lactate Dehydrogenase Troponin T C-Reactive Protein Total Protein Albumin Prealbumin Triglycerides Cholesterol LDL Cholesterol Direct HDL Cholesterol Urine pH Urine WBC (Auto) Urine Creatinine Urine Total Protein Fluid Total Protein Vancomycin Trough Rheumatoid Factor Complement C4 Miscellaneous Test Crossmatch 11/05/16 11/05/16 11/05/16 12:23 13:09 13:25 WBC RBC Hgb Hct MCV MCH MCHC RDW Plt Count Lymph % (Auto) [place] % (Auto) Lymph # [place] # Baso # Seg Neutrophils % Seg Neuts % (Manual) Lymphocytes % (Manual) Monocytes % (Manual) Eosinophils % (Manual) Basophils % (Manual) Nucleated RBC % Seg Neutrophils # Seg Neutrophils # Man Lymphocytes # (Manual) Monocytes # (Manual) Eosinophils # (Manual) Basophils # (Manual) PT INR Fibrinogen dRVVT Confirm Interp Factor V Activity POC ABG pH POC ABG pCO2 POC ABG pO2 ABG pO2 ABG HCO3 ABG Base Excess ABG Hemoglobin Oxyhemoglobin Sodium Potassium Chloride Carbon Dioxide BUN Creatinine Glucose POC Glucose 124 H Lactic Acid Calcium Phosphorus Magnesium Direct Bilirubin AST ALT Alkaline Phosphatase Lactate Dehydrogenase Troponin T C-Reactive Protein 11.40 H Total Protein Albumin Prealbumin Triglycerides Cholesterol LDL Cholesterol Direct HDL Cholesterol Urine pH 9.0 H Urine WBC (Auto) Urine Creatinine Urine Total Protein Fluid Total Protein Vancomycin Trough Rheumatoid Factor Complement C4 Miscellaneous Test Crossmatch 11/05/16 11/05/16 11/05/16 13:25 17:54 23:42 WBC RBC Hgb Hct MCV MCH MCHC RDW Plt Count Lymph % (Auto) [place] % (Auto) Lymph # [place] # Baso # Seg Neutrophils % Seg Neuts % (Manual) Lymphocytes % (Manual) Monocytes % (Manual) Eosinophils % (Manual) Basophils % (Manual) Nucleated RBC % Seg Neutrophils # Seg Neutrophils # Man Lymphocytes # (Manual) Monocytes # (Manual) Eosinophils # (Manual) Basophils # (Manual) PT INR Fibrinogen dRVVT Confirm Interp Factor V Activity POC ABG pH POC ABG pCO2 POC ABG pO2 ABG pO2 ABG HCO3 ABG Base Excess ABG Hemoglobin Oxyhemoglobin Sodium Potassium Chloride Carbon Dioxide BUN Creatinine Glucose POC Glucose 114 H 134 H Lactic Acid Calcium Phosphorus Magnesium Direct Bilirubin AST ALT Alkaline Phosphatase Lactate Dehydrogenase Troponin T C-Reactive Protein Total Protein Albumin Prealbumin Triglycerides Cholesterol LDL Cholesterol Direct HDL Cholesterol Urine pH Urine WBC (Auto) Urine Creatinine Urine Total Protein Fluid Total Protein Vancomycin Trough Rheumatoid Factor Complement C4 Miscellaneous Test Flexitest 1 H Crossmatch 11/06/16 11/06/16 11/06/16 04:56 06:25 06:25 WBC RBC 2.50 L Hgb 7.3 L Hct 22.5 L MCV MCH MCHC RDW 16.9 H Plt Count Lymph % (Auto) [place] % (Auto) 10.5 H Lymph # [place] # 1.1 H Baso # Seg Neutrophils % Seg Neuts % (Manual) Lymphocytes % (Manual) Monocytes % (Manual) Eosinophils % (Manual) Basophils % (Manual) Nucleated RBC % Seg Neutrophils # Seg Neutrophils # Man Lymphocytes # (Manual) Monocytes # (Manual) Eosinophils # (Manual) Basophils # (Manual) PT INR Fibrinogen dRVVT Confirm Interp Factor V Activity POC ABG pH POC ABG pCO2 POC ABG pO2 ABG pO2 ABG HCO3 ABG Base Excess ABG Hemoglobin Oxyhemoglobin Sodium Potassium 5.1 H Chloride 95.9 L Carbon Dioxide BUN 52 H Creatinine 1.8 H Glucose 117 H POC Glucose 120 H Lactic Acid Calcium Phosphorus Magnesium Direct Bilirubin AST 103 H ALT 77 H Alkaline Phosphatase 285 H Lactate Dehydrogenase Troponin T C-Reactive Protein Total Protein 6.2 L Albumin 1.8 L Prealbumin 0.180 L Triglycerides Cholesterol LDL Cholesterol Direct HDL Cholesterol Urine pH Urine WBC (Auto) Urine Creatinine Urine Total Protein Fluid Total Protein Vancomycin Trough Rheumatoid Factor Complement C4 Miscellaneous Test Crossmatch 11/06/16 11/06/16 11/06/16 11:56 17:14 23:52 WBC RBC Hgb Hct MCV MCH MCHC RDW Plt Count Lymph % (Auto) [place] % (Auto) Lymph # [place] # Baso # Seg Neutrophils % Seg Neuts % (Manual) Lymphocytes % (Manual) Monocytes % (Manual) Eosinophils % (Manual) Basophils % (Manual) Nucleated RBC % Seg Neutrophils # Seg Neutrophils # Man Lymphocytes # (Manual) Monocytes # (Manual) Eosinophils # (Manual) Basophils # (Manual) PT INR Fibrinogen dRVVT Confirm Interp Factor V Activity POC ABG pH POC ABG pCO2 POC ABG pO2 ABG pO2 ABG HCO3 ABG Base Excess ABG Hemoglobin Oxyhemoglobin Sodium Potassium Chloride Carbon Dioxide BUN Creatinine Glucose POC Glucose 141 H 125 H 130 H Lactic Acid Calcium Phosphorus Magnesium Direct Bilirubin AST ALT Alkaline Phosphatase Lactate Dehydrogenase Troponin T C-Reactive Protein Total Protein Albumin Prealbumin Triglycerides Cholesterol LDL Cholesterol Direct HDL Cholesterol Urine pH Urine WBC (Auto) Urine Creatinine Urine Total Protein Fluid Total Protein Vancomycin Trough Rheumatoid Factor Complement C4 Miscellaneous Test Crossmatch 11/07/16 11/07/16 11/07/16 06:30 06:30 09:37 WBC RBC 2.18 L Hgb 6.3 L Hct 19.7 L* MCV MCH MCHC RDW 16.8 H Plt Count Lymph % (Auto) [place] % (Auto) 10.0 H Lymph # [place] # 1.0 H Baso # Seg Neutrophils % Seg Neuts % (Manual) Lymphocytes % (Manual) Monocytes % (Manual) Eosinophils % (Manual) Basophils % (Manual) Nucleated RBC % Seg Neutrophils # Seg Neutrophils # Man Lymphocytes # (Manual) Monocytes # (Manual) Eosinophils # (Manual) Basophils # (Manual) PT INR Fibrinogen dRVVT Confirm Interp Factor V Activity POC ABG pH POC ABG pCO2 POC ABG pO2 ABG pO2 ABG HCO3 ABG Base Excess ABG Hemoglobin Oxyhemoglobin Sodium 135 L Potassium Chloride 95.6 L Carbon Dioxide BUN 70 H Creatinine 2.0 H Glucose 126 H POC Glucose Lactic Acid Calcium Phosphorus Magnesium Direct Bilirubin AST ALT Alkaline Phosphatase Lactate Dehydrogenase Troponin T C-Reactive Protein Total Protein Albumin Prealbumin Triglycerides Cholesterol LDL Cholesterol Direct HDL Cholesterol Urine pH Urine WBC (Auto) Urine Creatinine Urine Total Protein Fluid Total Protein Vancomycin Trough Rheumatoid Factor Complement C4 Miscellaneous Test Crossmatch See Detail 11/07/16 11/07/16 11/07/16 12:52 18:51 21:26 WBC RBC Hgb Hct MCV MCH MCHC RDW Plt Count Lymph % (Auto) [place] % (Auto) Lymph # [place] # Baso # Seg Neutrophils % Seg Neuts % (Manual) Lymphocytes % (Manual) Monocytes % (Manual) Eosinophils % (Manual) Basophils % (Manual) Nucleated RBC % Seg Neutrophils # Seg Neutrophils # Man Lymphocytes # (Manual) Monocytes # (Manual) Eosinophils # (Manual) Basophils # (Manual) PT INR Fibrinogen dRVVT Confirm Interp Factor V Activity POC ABG pH 7.523 H POC ABG pCO2 34.6 L POC ABG pO2 53 L ABG pO2 ABG HCO3 ABG Base Excess ABG Hemoglobin Oxyhemoglobin Sodium Potassium Chloride Carbon Dioxide BUN Creatinine Glucose POC Glucose 142 H 155 H Lactic Acid Calcium Phosphorus Magnesium Direct Bilirubin AST ALT Alkaline Phosphatase Lactate Dehydrogenase Troponin T C-Reactive Protein Total Protein Albumin Prealbumin Triglycerides Cholesterol LDL Cholesterol Direct HDL Cholesterol Urine pH Urine WBC (Auto) Urine Creatinine Urine Total Protein Fluid Total Protein Vancomycin Trough Rheumatoid Factor Complement C4 Miscellaneous Test Crossmatch 11/07/16 11/08/16 11/08/16 21:34 13:03 23:37 WBC RBC 2.63 L Hgb 7.7 L Hct 22.7 L MCV MCH MCHC RDW 17.0 H Plt Count Lymph % (Auto) [place] % (Auto) Lymph # [place] # Baso # Seg Neutrophils % Seg Neuts % (Manual) Lymphocytes % (Manual) Monocytes % (Manual) Eosinophils % (Manual) Basophils % (Manual) Nucleated RBC % Seg Neutrophils # Seg Neutrophils # Man Lymphocytes # (Manual) Monocytes # (Manual) Eosinophils # (Manual) Basophils # (Manual) PT INR Fibrinogen dRVVT Confirm Interp Factor V Activity POC ABG pH 7.478 H POC ABG pCO2 34.0 L POC ABG pO2 50 L ABG pO2 ABG HCO3 ABG Base Excess ABG Hemoglobin Oxyhemoglobin Sodium Potassium Chloride Carbon Dioxide BUN Creatinine Glucose POC Glucose 113 H Lactic Acid Calcium Phosphorus Magnesium Direct Bilirubin AST ALT Alkaline Phosphatase Lactate Dehydrogenase Troponin T C-Reactive Protein Total Protein Albumin Prealbumin Triglycerides Cholesterol LDL Cholesterol Direct HDL Cholesterol Urine pH Urine WBC (Auto) Urine Creatinine Urine Total Protein Fluid Total Protein Vancomycin Trough Rheumatoid Factor Complement C4 Miscellaneous Test Crossmatch 11/09/16 11/09/16 11/09/16 04:35 10:15 18:21 WBC RBC 2.68 L Hgb 7.8 L Hct 23.3 L MCV MCH MCHC RDW 17.0 H Plt Count Lymph % (Auto) [place] % (Auto) 12.1 H Lymph # [place] # 1.1 H Baso # Seg Neutrophils % Seg Neuts % (Manual) Lymphocytes % (Manual) Monocytes % (Manual) Eosinophils % (Manual) Basophils % (Manual) Nucleated RBC % Seg Neutrophils # Seg Neutrophils # Man Lymphocytes # (Manual) Monocytes # (Manual) Eosinophils # (Manual) Basophils # (Manual) PT INR Fibrinogen dRVVT Confirm Interp Factor V Activity POC ABG pH POC ABG pCO2 POC ABG pO2 ABG pO2 ABG HCO3 ABG Base Excess ABG Hemoglobin Oxyhemoglobin Sodium Potassium Chloride Carbon Dioxide BUN 51 H Creatinine 1.8 H Glucose POC Glucose 60 L Lactic Acid Calcium 8.3 L Phosphorus Magnesium Direct Bilirubin AST ALT Alkaline Phosphatase Lactate Dehydrogenase Troponin T C-Reactive Protein Total Protein Albumin Prealbumin Triglycerides Cholesterol LDL Cholesterol Direct HDL Cholesterol Urine pH Urine WBC (Auto) Urine Creatinine Urine Total Protein Fluid Total Protein Vancomycin Trough Rheumatoid Factor Complement C4 Miscellaneous Test Crossmatch 11/09/16 11/10/16 11/10/16 18:55 07:00 11:51 WBC RBC Hgb Hct MCV MCH MCHC RDW Plt Count Lymph % (Auto) [place] % (Auto) Lymph # [place] # Baso # Seg Neutrophils % Seg Neuts % (Manual) Lymphocytes % (Manual) Monocytes % (Manual) Eosinophils % (Manual) Basophils % (Manual) Nucleated RBC % Seg Neutrophils # Seg Neutrophils # Man Lymphocytes # (Manual) Monocytes # (Manual) Eosinophils # (Manual) Basophils # (Manual) PT INR Fibrinogen dRVVT Confirm Interp Factor V Activity POC ABG pH POC ABG pCO2 POC ABG pO2 ABG pO2 ABG HCO3 ABG Base Excess ABG Hemoglobin Oxyhemoglobin Sodium Potassium 3.0 L D Chloride 97.4 L Carbon Dioxide BUN 28 H Creatinine 1.3 H Glucose POC Glucose 68 L 120 H Lactic Acid Calcium 7.8 L Phosphorus Magnesium Direct Bilirubin AST ALT Alkaline Phosphatase Lactate Dehydrogenase Troponin T C-Reactive Protein Total Protein Albumin Prealbumin Triglycerides Cholesterol LDL Cholesterol Direct HDL Cholesterol Urine pH Urine WBC (Auto) Urine Creatinine Urine Total Protein Fluid Total Protein Vancomycin Trough Rheumatoid Factor Complement C4 Miscellaneous Test Crossmatch 11/10/16 11/11/16 11/11/16 14:20 06:59 06:59 WBC RBC 2.81 L Hgb 8.1 L Hct 24.4 L MCV MCH MCHC RDW 16.4 H Plt Count Lymph % (Auto) [place] % (Auto) 10.8 H Lymph # [place] # 1.0 H Baso # Seg Neutrophils % Seg Neuts % (Manual) Lymphocytes % (Manual) Monocytes % (Manual) Eosinophils % (Manual) Basophils % (Manual) Nucleated RBC % Seg Neutrophils # Seg Neutrophils # Man Lymphocytes # (Manual) Monocytes # (Manual) Eosinophils # (Manual) Basophils # (Manual) PT INR Fibrinogen dRVVT Confirm Interp Factor V Activity POC ABG pH POC ABG pCO2 POC ABG pO2 ABG pO2 ABG HCO3 ABG Base Excess ABG Hemoglobin Oxyhemoglobin Sodium Potassium Chloride Carbon Dioxide BUN Creatinine Glucose POC Glucose Lactic Acid Calcium Phosphorus Magnesium Direct Bilirubin AST ALT Alkaline Phosphatase Lactate Dehydrogenase 196 H Troponin T C-Reactive Protein Total Protein 6.1 L Albumin Prealbumin Triglycerides Cholesterol LDL Cholesterol Direct HDL Cholesterol Urine pH Urine WBC (Auto) Urine Creatinine Urine Total Protein Fluid Total Protein < 3.0 L Vancomycin Trough Rheumatoid Factor Complement C4 Miscellaneous Test Crossmatch 11/11/16 11/11/16 11/12/16 06:59 09:50 04:00 WBC RBC Hgb Hct MCV MCH MCHC RDW Plt Count Lymph % (Auto) [place] % (Auto) Lymph # [place] # Baso # Seg Neutrophils % Seg Neuts % (Manual) Lymphocytes % (Manual) Monocytes % (Manual) Eosinophils % (Manual) Basophils % (Manual) Nucleated RBC % Seg Neutrophils # Seg Neutrophils # Man Lymphocytes # (Manual) Monocytes # (Manual) Eosinophils # (Manual) Basophils # (Manual) PT INR 1.18 H Fibrinogen dRVVT Confirm Interp Factor V Activity POC ABG pH POC ABG pCO2 POC ABG pO2 ABG pO2 ABG HCO3 ABG Base Excess ABG Hemoglobin Oxyhemoglobin Sodium 136 L 133 L Potassium Chloride 96.1 L 94.8 L Carbon Dioxide 21 L BUN 37 H 42 H Creatinine 1.8 H 2.0 H Glucose POC Glucose Lactic Acid Calcium Phosphorus Magnesium Direct Bilirubin AST ALT Alkaline Phosphatase Lactate Dehydrogenase Troponin T C-Reactive Protein Total Protein Albumin Prealbumin Triglycerides Cholesterol LDL Cholesterol Direct HDL Cholesterol Urine pH Urine WBC (Auto) Urine Creatinine Urine Total Protein Fluid Total Protein Vancomycin Trough Rheumatoid Factor Complement C4 Miscellaneous Test Crossmatch 11/12/16 11/12/16 11/13/16 04:00 23:55 05:53 WBC RBC Hgb 8.9 L Hct 27.2 L MCV MCH MCHC RDW Plt Count Lymph % (Auto) [place] % (Auto) Lymph # [place] # Baso # Seg Neutrophils % Seg Neuts % (Manual) Lymphocytes % (Manual) Monocytes % (Manual) Eosinophils % (Manual) Basophils % (Manual) Nucleated RBC % Seg Neutrophils # Seg Neutrophils # Man Lymphocytes # (Manual) Monocytes # (Manual) Eosinophils # (Manual) Basophils # (Manual) PT INR Fibrinogen dRVVT Confirm Interp Factor V Activity POC ABG pH POC ABG pCO2 POC ABG pO2 ABG pO2 ABG HCO3 ABG Base Excess ABG Hemoglobin Oxyhemoglobin Sodium Potassium Chloride Carbon Dioxide BUN Creatinine Glucose POC Glucose 132 H 120 H Lactic Acid Calcium Phosphorus Magnesium Direct Bilirubin AST ALT Alkaline Phosphatase Lactate Dehydrogenase Troponin T C-Reactive Protein Total Protein Albumin Prealbumin Triglycerides Cholesterol LDL Cholesterol Direct HDL Cholesterol Urine pH Urine WBC (Auto) Urine Creatinine Urine Total Protein Fluid Total Protein Vancomycin Trough Rheumatoid Factor Complement C4 Miscellaneous Test Crossmatch 11/13/16 11/13/16 11/13/16 11:43 17:09 23:41 WBC RBC Hgb Hct MCV MCH MCHC RDW Plt Count Lymph % (Auto) [place] % (Auto) Lymph # [place] # Baso # Seg Neutrophils % Seg Neuts % (Manual) Lymphocytes % (Manual) Monocytes % (Manual) Eosinophils % (Manual) Basophils % (Manual) Nucleated RBC % Seg Neutrophils # Seg Neutrophils # Man Lymphocytes # (Manual) Monocytes # (Manual) Eosinophils # (Manual) Basophils # (Manual) PT INR Fibrinogen dRVVT Confirm Interp Factor V Activity POC ABG pH POC ABG pCO2 POC ABG pO2 ABG pO2 ABG HCO3 ABG Base Excess ABG Hemoglobin Oxyhemoglobin Sodium Potassium Chloride Carbon Dioxide BUN Creatinine Glucose POC Glucose 114 H 113 H 108 H Lactic Acid Calcium Phosphorus Magnesium Direct Bilirubin AST ALT Alkaline Phosphatase Lactate Dehydrogenase Troponin T C-Reactive Protein Total Protein Albumin Prealbumin Triglycerides Cholesterol LDL Cholesterol Direct HDL Cholesterol Urine pH Urine WBC (Auto) Urine Creatinine Urine Total Protein Fluid Total Protein Vancomycin Trough Rheumatoid Factor Complement C4 Miscellaneous Test Crossmatch 11/13/16 11/15/16 11/15/16 Unknown 00:37 03:30 WBC 11.2 H RBC 2.72 L Hgb 7.6 L Hct 23.4 L MCV MCH MCHC RDW 16.5 H Plt Count Lymph % (Auto) [place] % (Auto) Lymph # [place] # Baso # Seg Neutrophils % Seg Neuts % (Manual) Lymphocytes % (Manual) Monocytes % (Manual) Eosinophils % (Manual) Basophils % (Manual) Nucleated RBC % Seg Neutrophils # Seg Neutrophils # Man Lymphocytes # (Manual) Monocytes # (Manual) Eosinophils # (Manual) Basophils # (Manual) PT INR Fibrinogen dRVVT Confirm Interp Factor V Activity POC ABG pH POC ABG pCO2 POC ABG pO2 ABG pO2 ABG HCO3 ABG Base Excess ABG Hemoglobin Oxyhemoglobin Sodium 135 L Potassium Chloride 95.2 L Carbon Dioxide BUN 52 H Creatinine 2.2 H Glucose POC Glucose 108 H Lactic Acid Calcium Phosphorus Magnesium Direct Bilirubin AST ALT Alkaline Phosphatase Lactate Dehydrogenase Troponin T C-Reactive Protein Total Protein Albumin Prealbumin Triglycerides Cholesterol LDL Cholesterol Direct HDL Cholesterol Urine pH Urine WBC (Auto) Urine Creatinine Urine Total Protein Fluid Total Protein Vancomycin Trough Rheumatoid Factor Complement C4 Miscellaneous Test Crossmatch 11/15/16 11/15/16 11/15/16 03:30 05:04 11:50 WBC RBC Hgb Hct MCV MCH MCHC RDW Plt Count Lymph % (Auto) [place] % (Auto) Lymph # [place] # Baso # Seg Neutrophils % Seg Neuts % (Manual) Lymphocytes % (Manual) Monocytes % (Manual) Eosinophils % (Manual) Basophils % (Manual) Nucleated RBC % Seg Neutrophils # Seg Neutrophils # Man Lymphocytes # (Manual) Monocytes # (Manual) Eosinophils # (Manual) Basophils # (Manual) PT INR Fibrinogen dRVVT Confirm Interp Factor V Activity POC ABG pH POC ABG pCO2 POC ABG pO2 ABG pO2 ABG HCO3 ABG Base Excess ABG Hemoglobin Oxyhemoglobin Sodium Potassium 3.4 L Chloride Carbon Dioxide BUN 25 H Creatinine 1.5 H Glucose 103 H POC Glucose 121 H 144 H Lactic Acid Calcium Phosphorus Magnesium Direct Bilirubin AST ALT Alkaline Phosphatase Lactate Dehydrogenase Troponin T C-Reactive Protein Total Protein Albumin Prealbumin Triglycerides Cholesterol LDL Cholesterol Direct HDL Cholesterol Urine pH Urine WBC (Auto) Urine Creatinine Urine Total Protein Fluid Total Protein Vancomycin Trough Rheumatoid Factor Complement C4 Miscellaneous Test Crossmatch 11/15/16 11/15/16 11/16/16 21:28 23:20 11:44 WBC RBC Hgb Hct MCV MCH MCHC RDW Plt Count Lymph % (Auto) [place] % (Auto) Lymph # [place] # Baso # Seg Neutrophils % Seg Neuts % (Manual) Lymphocytes % (Manual) Monocytes % (Manual) Eosinophils % (Manual) Basophils % (Manual) Nucleated RBC % Seg Neutrophils # Seg Neutrophils # Man Lymphocytes # (Manual) Monocytes # (Manual) Eosinophils # (Manual) Basophils # (Manual) PT INR Fibrinogen dRVVT Confirm Interp Factor V Activity POC ABG pH 7.462 H POC ABG pCO2 POC ABG pO2 71 L ABG pO2 ABG HCO3 ABG Base Excess ABG Hemoglobin Oxyhemoglobin Sodium Potassium Chloride Carbon Dioxide BUN Creatinine Glucose POC Glucose 116 H 133 H Lactic Acid Calcium Phosphorus Magnesium Direct Bilirubin AST ALT Alkaline Phosphatase Lactate Dehydrogenase Troponin T C-Reactive Protein Total Protein Albumin Prealbumin Triglycerides Cholesterol LDL Cholesterol Direct HDL Cholesterol Urine pH Urine WBC (Auto) Urine Creatinine Urine Total Protein Fluid Total Protein Vancomycin Trough Rheumatoid Factor Complement C4 Miscellaneous Test Crossmatch 11/16/16 11/16/16 11/16/16 12:20 17:05 23:35 WBC 11.7 H RBC 2.73 L Hgb 7.6 L Hct 23.7 L MCV MCH MCHC RDW 16.6 H Plt Count Lymph % (Auto) [place] % (Auto) Lymph # [place] # Baso # Seg Neutrophils % Seg Neuts % (Manual) Lymphocytes % (Manual) Monocytes % (Manual) Eosinophils % (Manual) Basophils % (Manual) Nucleated RBC % Seg Neutrophils # Seg Neutrophils # Man Lymphocytes # (Manual) Monocytes # (Manual) Eosinophils # (Manual) Basophils # (Manual) PT INR Fibrinogen dRVVT Confirm Interp Factor V Activity POC ABG pH POC ABG pCO2 POC ABG pO2 ABG pO2 ABG HCO3 ABG Base Excess ABG Hemoglobin Oxyhemoglobin Sodium Potassium Chloride Carbon Dioxide BUN Creatinine Glucose POC Glucose 154 H 125 H Lactic Acid Calcium Phosphorus Magnesium Direct Bilirubin AST ALT Alkaline Phosphatase Lactate Dehydrogenase Troponin T C-Reactive Protein Total Protein Albumin Prealbumin Triglycerides Cholesterol LDL Cholesterol Direct HDL Cholesterol Urine pH Urine WBC (Auto) Urine Creatinine Urine Total Protein Fluid Total Protein Vancomycin Trough Rheumatoid Factor Complement C4 Miscellaneous Test Crossmatch 11/17/16 11/17/16 11/17/16 03:20 03:20 03:20 WBC RBC 2.55 L Hgb 7.3 L Hct 21.9 L MCV MCH MCHC RDW 16.6 H Plt Count Lymph % (Auto) [place] % (Auto) 11.5 H Lymph # [place] # 1.1 H Baso # Seg Neutrophils % Seg Neuts % (Manual) Lymphocytes % (Manual) Monocytes % (Manual) Eosinophils % (Manual) Basophils % (Manual) Nucleated RBC % Seg Neutrophils # Seg Neutrophils # Man Lymphocytes # (Manual) Monocytes # (Manual) Eosinophils # (Manual) Basophils # (Manual) PT 16.8 H INR 1.37 H Fibrinogen dRVVT Confirm Interp Factor V Activity POC ABG pH POC ABG pCO2 POC ABG pO2 ABG pO2 ABG HCO3 ABG Base Excess ABG Hemoglobin Oxyhemoglobin Sodium Potassium 3.5 L Chloride Carbon Dioxide BUN 21 H Creatinine Glucose POC Glucose Lactic Acid Calcium 7.9 L Phosphorus Magnesium Direct Bilirubin AST ALT Alkaline Phosphatase Lactate Dehydrogenase Troponin T C-Reactive Protein Total Protein Albumin Prealbumin Triglycerides Cholesterol LDL Cholesterol Direct HDL Cholesterol Urine pH Urine WBC (Auto) Urine Creatinine Urine Total Protein Fluid Total Protein Vancomycin Trough Rheumatoid Factor Complement C4 Miscellaneous Test Crossmatch 11/17/16 11/17/16 11/17/16 06:34 11:21 21:22 WBC RBC Hgb Hct MCV MCH MCHC RDW Plt Count Lymph % (Auto) [place] % (Auto) Lymph # [place] # Baso # Seg Neutrophils % Seg Neuts % (Manual) Lymphocytes % (Manual) Monocytes % (Manual) Eosinophils % (Manual) Basophils % (Manual) Nucleated RBC % Seg Neutrophils # Seg Neutrophils # Man Lymphocytes # (Manual) Monocytes # (Manual) Eosinophils # (Manual) Basophils # (Manual) PT INR Fibrinogen dRVVT Confirm Interp Factor V Activity POC ABG pH 7.467 H POC ABG pCO2 POC ABG pO2 73 L ABG pO2 ABG HCO3 ABG Base Excess ABG Hemoglobin Oxyhemoglobin Sodium Potassium Chloride Carbon Dioxide BUN Creatinine Glucose POC Glucose 121 H 119 H Lactic Acid Calcium Phosphorus Magnesium Direct Bilirubin AST ALT Alkaline Phosphatase Lactate Dehydrogenase Troponin T C-Reactive Protein Total Protein Albumin Prealbumin Triglycerides Cholesterol LDL Cholesterol Direct HDL Cholesterol Urine pH Urine WBC (Auto) Urine Creatinine Urine Total Protein Fluid Total Protein Vancomycin Trough Rheumatoid Factor Complement C4 Miscellaneous Test Crossmatch 11/18/16 11/18/16 11/19/16 12:16 17:19 00:00 WBC RBC Hgb Hct MCV MCH MCHC RDW Plt Count Lymph % (Auto) [place] % (Auto) Lymph # [place] # Baso # Seg Neutrophils % Seg Neuts % (Manual) Lymphocytes % (Manual) Monocytes % (Manual) Eosinophils % (Manual) Basophils % (Manual) Nucleated RBC % Seg Neutrophils # Seg Neutrophils # Man Lymphocytes # (Manual) Monocytes # (Manual) Eosinophils # (Manual) Basophils # (Manual) PT INR Fibrinogen dRVVT Confirm Interp Factor V Activity POC ABG pH POC ABG pCO2 POC ABG pO2 ABG pO2 ABG HCO3 ABG Base Excess ABG Hemoglobin Oxyhemoglobin Sodium Potassium Chloride Carbon Dioxide BUN Creatinine Glucose POC Glucose 124 H 162 H 139 H Lactic Acid Calcium Phosphorus Magnesium Direct Bilirubin AST ALT Alkaline Phosphatase Lactate Dehydrogenase Troponin T C-Reactive Protein Total Protein Albumin Prealbumin Triglycerides Cholesterol LDL Cholesterol Direct HDL Cholesterol Urine pH Urine WBC (Auto) Urine Creatinine Urine Total Protein Fluid Total Protein Vancomycin Trough Rheumatoid Factor Complement C4 Miscellaneous Test Crossmatch 11/19/16 11/19/16 11/20/16 05:00 12:43 00:40 WBC RBC Hgb Hct MCV MCH MCHC RDW Plt Count Lymph % (Auto) [place] % (Auto) Lymph # [place] # Baso # Seg Neutrophils % Seg Neuts % (Manual) Lymphocytes % (Manual) Monocytes % (Manual) Eosinophils % (Manual) Basophils % (Manual) Nucleated RBC % Seg Neutrophils # Seg Neutrophils # Man Lymphocytes # (Manual) Monocytes # (Manual) Eosinophils # (Manual) Basophils # (Manual) PT INR Fibrinogen dRVVT Confirm Interp Factor V Activity POC ABG pH POC ABG pCO2 POC ABG pO2 ABG pO2 ABG HCO3 ABG Base Excess ABG Hemoglobin Oxyhemoglobin Sodium Potassium Chloride Carbon Dioxide BUN Creatinine Glucose POC Glucose 110 H 125 H 136 H Lactic Acid Calcium Phosphorus Magnesium Direct Bilirubin AST ALT Alkaline Phosphatase Lactate Dehydrogenase Troponin T C-Reactive Protein Total Protein Albumin Prealbumin Triglycerides Cholesterol LDL Cholesterol Direct HDL Cholesterol Urine pH Urine WBC (Auto) Urine Creatinine Urine Total Protein Fluid Total Protein Vancomycin Trough Rheumatoid Factor Complement C4 Miscellaneous Test Crossmatch 11/20/16 11/20/16 11/20/16 05:00 05:00 05:51 WBC 13.1 H RBC 2.74 L Hgb 7.7 L Hct 23.6 L MCV MCH MCHC RDW 16.9 H Plt Count Lymph % (Auto) [place] % (Auto) 10.8 H Lymph # [place] # 1.4 H Baso # Seg Neutrophils % Seg Neuts % (Manual) Lymphocytes % (Manual) Monocytes % (Manual) Eosinophils % (Manual) Basophils % (Manual) Nucleated RBC % Seg Neutrophils # 7.9 H Seg Neutrophils # Man Lymphocytes # (Manual) Monocytes # (Manual) Eosinophils # (Manual) Basophils # (Manual) PT INR Fibrinogen dRVVT Confirm Interp Factor V Activity POC ABG pH POC ABG pCO2 POC ABG pO2 ABG pO2 ABG HCO3 ABG Base Excess ABG Hemoglobin Oxyhemoglobin Sodium Potassium Chloride Carbon Dioxide BUN 31 H Creatinine 1.8 H Glucose 129 H POC Glucose 133 H Lactic Acid Calcium Phosphorus Magnesium Direct Bilirubin AST ALT Alkaline Phosphatase Lactate Dehydrogenase Troponin T C-Reactive Protein Total Protein Albumin Prealbumin Triglycerides Cholesterol LDL Cholesterol Direct HDL Cholesterol Urine pH Urine WBC (Auto) Urine Creatinine Urine Total Protein Fluid Total Protein Vancomycin Trough Rheumatoid Factor Complement C4 Miscellaneous Test Crossmatch 11/20/16 11/20/16 11/21/16 12:40 18:10 01:20 WBC RBC Hgb Hct MCV MCH MCHC RDW Plt Count Lymph % (Auto) [place] % (Auto) Lymph # [place] # Baso # Seg Neutrophils % Seg Neuts % (Manual) Lymphocytes % (Manual) Monocytes % (Manual) Eosinophils % (Manual) Basophils % (Manual) Nucleated RBC % Seg Neutrophils # Seg Neutrophils # Man Lymphocytes # (Manual) Monocytes # (Manual) Eosinophils # (Manual) Basophils # (Manual) PT INR Fibrinogen dRVVT Confirm Interp Factor V Activity POC ABG pH POC ABG pCO2 POC ABG pO2 ABG pO2 ABG HCO3 ABG Base Excess ABG Hemoglobin Oxyhemoglobin Sodium Potassium Chloride Carbon Dioxide BUN Creatinine Glucose POC Glucose 134 H 138 H 136 H Lactic Acid Calcium Phosphorus Magnesium Direct Bilirubin AST ALT Alkaline Phosphatase Lactate Dehydrogenase Troponin T C-Reactive Protein Total Protein Albumin Prealbumin Triglycerides Cholesterol LDL Cholesterol Direct HDL Cholesterol Urine pH Urine WBC (Auto) Urine Creatinine Urine Total Protein Fluid Total Protein Vancomycin Trough Rheumatoid Factor Complement C4 Miscellaneous Test Crossmatch 11/21/16 11/21/16 11/21/16 07:04 07:45 07:45 WBC 22.0 H RBC 2.91 L Hgb 8.2 L Hct 25.4 L MCV MCH MCHC RDW 17.1 H Plt Count Lymph % (Auto) [place] % (Auto) Lymph # [place] # Baso # Seg Neutrophils % Seg Neuts % (Manual) Lymphocytes % (Manual) 8.0 L Monocytes % (Manual) Eosinophils % (Manual) Basophils % (Manual) Nucleated RBC % Seg Neutrophils # Seg Neutrophils # Man 14.7 H Lymphocytes # (Manual) Monocytes # (Manual) 1.1 H Eosinophils # (Manual) Basophils # (Manual) PT INR Fibrinogen dRVVT Confirm Interp Factor V Activity POC ABG pH POC ABG pCO2 POC ABG pO2 ABG pO2 ABG HCO3 ABG Base Excess ABG Hemoglobin Oxyhemoglobin Sodium Potassium Chloride Carbon Dioxide BUN 42 H Creatinine 2.0 H Glucose POC Glucose 108 H Lactic Acid Calcium Phosphorus Magnesium Direct Bilirubin AST ALT Alkaline Phosphatase Lactate Dehydrogenase Troponin T C-Reactive Protein Total Protein Albumin Prealbumin Triglycerides Cholesterol LDL Cholesterol Direct HDL Cholesterol Urine pH Urine WBC (Auto) Urine Creatinine Urine Total Protein Fluid Total Protein Vancomycin Trough Rheumatoid Factor Complement C4 Miscellaneous Test Crossmatch 11/21/16 11/21/16 11/21/16 08:38 10:09 11:20 WBC RBC Hgb Hct MCV MCH MCHC RDW Plt Count Lymph % (Auto) [place] % (Auto) Lymph # [place] # Baso # Seg Neutrophils % Seg Neuts % (Manual) Lymphocytes % (Manual) Monocytes % (Manual) Eosinophils % (Manual) Basophils % (Manual) Nucleated RBC % Seg Neutrophils # Seg Neutrophils # Man Lymphocytes # (Manual) Monocytes # (Manual) Eosinophils # (Manual) Basophils # (Manual) PT INR Fibrinogen dRVVT Confirm Interp Factor V Activity POC ABG pH 7.346 L POC ABG pCO2 34.4 L POC ABG pO2 314 H ABG pO2 ABG HCO3 ABG Base Excess ABG Hemoglobin Oxyhemoglobin Sodium Potassium Chloride Carbon Dioxide BUN Creatinine Glucose POC Glucose 195 H 153 H Lactic Acid Calcium Phosphorus Magnesium Direct Bilirubin AST ALT Alkaline Phosphatase Lactate Dehydrogenase Troponin T C-Reactive Protein Total Protein Albumin Prealbumin Triglycerides Cholesterol LDL Cholesterol Direct HDL Cholesterol Urine pH Urine WBC (Auto) Urine Creatinine Urine Total Protein Fluid Total Protein Vancomycin Trough Rheumatoid Factor Complement C4 Miscellaneous Test Crossmatch 11/21/16 11/22/16 11/22/16 23:37 04:48 05:00 WBC 29.7 H RBC 2.73 L Hgb 7.5 L Hct 24.2 L MCV MCH 27 L MCHC RDW 17.4 H Plt Count Lymph % (Auto) [place] % (Auto) Lymph # [place] # Baso # Seg Neutrophils % Seg Neuts % (Manual) Lymphocytes % (Manual) 7.0 L Monocytes % (Manual) Eosinophils % (Manual) Basophils % (Manual) Nucleated RBC % Seg Neutrophils # Seg Neutrophils # Man 15.4 H Lymphocytes # (Manual) Monocytes # (Manual) Eosinophils # (Manual) Basophils # (Manual) PT INR Fibrinogen dRVVT Confirm Interp Factor V Activity POC ABG pH POC ABG pCO2 24.6 L POC ABG pO2 189 H ABG pO2 ABG HCO3 ABG Base Excess ABG Hemoglobin Oxyhemoglobin Sodium Potassium Chloride Carbon Dioxide BUN Creatinine Glucose POC Glucose 65 L Lactic Acid Calcium Phosphorus Magnesium Direct Bilirubin AST ALT Alkaline Phosphatase Lactate Dehydrogenase Troponin T C-Reactive Protein Total Protein Albumin Prealbumin Triglycerides Cholesterol LDL Cholesterol Direct HDL Cholesterol Urine pH Urine WBC (Auto) Urine Creatinine Urine Total Protein Fluid Total Protein Vancomycin Trough Rheumatoid Factor Complement C4 Miscellaneous Test Crossmatch 11/22/16 11/23/16 11/23/16 05:00 03:44 04:06 WBC RBC 2.52 L Hgb 7.2 L Hct 21.5 L MCV MCH MCHC RDW 17.1 H Plt Count Lymph % (Auto) [place] % (Auto) 12.4 H Lymph # [place] # 1.4 H Baso # Seg Neutrophils % Seg Neuts % (Manual) Lymphocytes % (Manual) Monocytes % (Manual) Eosinophils % (Manual) Basophils % (Manual) Nucleated RBC % Seg Neutrophils # Seg Neutrophils # Man Lymphocytes # (Manual) Monocytes # (Manual) Eosinophils # (Manual) Basophils # (Manual) PT INR Fibrinogen dRVVT Confirm Interp Factor V Activity POC ABG pH 7.493 H POC ABG pCO2 29.5 L POC ABG pO2 49 L ABG pO2 ABG HCO3 ABG Base Excess ABG Hemoglobin Oxyhemoglobin Sodium 134 L Potassium Chloride 95.9 L Carbon Dioxide 14 L D BUN 51 H Creatinine 2.6 H Glucose POC Glucose Lactic Acid Calcium Phosphorus Magnesium Direct Bilirubin AST ALT Alkaline Phosphatase Lactate Dehydrogenase Troponin T C-Reactive Protein Total Protein Albumin Prealbumin Triglycerides Cholesterol LDL Cholesterol Direct HDL Cholesterol Urine pH Urine WBC (Auto) Urine Creatinine Urine Total Protein Fluid Total Protein Vancomycin Trough Rheumatoid Factor Complement C4 Miscellaneous Test Crossmatch 11/23/16 11/23/16 11/24/16 04:06 11:29 06:39 WBC RBC Hgb Hct MCV MCH MCHC RDW Plt Count Lymph % (Auto) [place] % (Auto) Lymph # [place] # Baso # Seg Neutrophils % Seg Neuts % (Manual) Lymphocytes % (Manual) Monocytes % (Manual) Eosinophils % (Manual) Basophils % (Manual) Nucleated RBC % Seg Neutrophils # Seg Neutrophils # Man Lymphocytes # (Manual) Monocytes # (Manual) Eosinophils # (Manual) Basophils # (Manual) PT INR Fibrinogen dRVVT Confirm Interp Factor V Activity POC ABG pH POC ABG pCO2 POC ABG pO2 ABG pO2 ABG HCO3 ABG Base Excess ABG Hemoglobin Oxyhemoglobin Sodium 136 L Potassium Chloride 95.2 L Carbon Dioxide BUN 60 H Creatinine 2.9 H Glucose POC Glucose 69 L 305 H Lactic Acid Calcium Phosphorus Magnesium 1.60 L Direct Bilirubin AST ALT Alkaline Phosphatase Lactate Dehydrogenase Troponin T C-Reactive Protein Total Protein Albumin Prealbumin Triglycerides Cholesterol LDL Cholesterol Direct HDL Cholesterol Urine pH Urine WBC (Auto) Urine Creatinine Urine Total Protein Fluid Total Protein Vancomycin Trough Rheumatoid Factor Complement C4 Miscellaneous Test Crossmatch 11/24/16 11/24/16 11/24/16 06:43 08:08 08:08 WBC 11.2 H RBC 2.47 L Hgb 6.8 L Hct 20.6 L MCV MCH MCHC RDW 17.0 H Plt Count Lymph % (Auto) [place] % (Auto) 10.3 H Lymph # [place] # 1.2 H Baso # Seg Neutrophils % Seg Neuts % (Manual) Lymphocytes % (Manual) Monocytes % (Manual) Eosinophils % (Manual) Basophils % (Manual) Nucleated RBC % Seg Neutrophils # Seg Neutrophils # Man Lymphocytes # (Manual) Monocytes # (Manual) Eosinophils # (Manual) Basophils # (Manual) PT INR Fibrinogen dRVVT Confirm Interp Factor V Activity POC ABG pH POC ABG pCO2 POC ABG pO2 ABG pO2 ABG HCO3 ABG Base Excess ABG Hemoglobin Oxyhemoglobin Sodium 135 L Potassium Chloride 96.3 L Carbon Dioxide BUN 61 H Creatinine 3.1 H Glucose POC Glucose 62 L Lactic Acid Calcium 8.2 L Phosphorus Magnesium Direct Bilirubin AST ALT Alkaline Phosphatase Lactate Dehydrogenase Troponin T C-Reactive Protein Total Protein Albumin Prealbumin Triglycerides Cholesterol LDL Cholesterol Direct HDL Cholesterol Urine pH Urine WBC (Auto) Urine Creatinine Urine Total Protein Fluid Total Protein Vancomycin Trough Rheumatoid Factor Complement C4 Miscellaneous Test Crossmatch 11/24/16 11/24/16 11/24/16 08:34 11:20 12:41 WBC RBC Hgb Hct MCV MCH MCHC RDW Plt Count Lymph % (Auto) [place] % (Auto) Lymph # [place] # Baso # Seg Neutrophils % Seg Neuts % (Manual) Lymphocytes % (Manual) Monocytes % (Manual) Eosinophils % (Manual) Basophils % (Manual) Nucleated RBC % Seg Neutrophils # Seg Neutrophils # Man Lymphocytes # (Manual) Monocytes # (Manual) Eosinophils # (Manual) Basophils # (Manual) PT INR Fibrinogen dRVVT Confirm Interp Factor V Activity POC ABG pH POC ABG pCO2 POC ABG pO2 ABG pO2 ABG HCO3 ABG Base Excess ABG Hemoglobin Oxyhemoglobin Sodium Potassium Chloride Carbon Dioxide BUN Creatinine Glucose POC Glucose 108 H Lactic Acid Calcium Phosphorus Magnesium 1.60 L Direct Bilirubin AST ALT Alkaline Phosphatase Lactate Dehydrogenase Troponin T C-Reactive Protein Total Protein Albumin Prealbumin Triglycerides Cholesterol LDL Cholesterol Direct HDL Cholesterol Urine pH Urine WBC (Auto) Urine Creatinine Urine Total Protein Fluid Total Protein Vancomycin Trough Rheumatoid Factor Complement C4 Miscellaneous Test Crossmatch See Detail 11/25/16 11/25/16 11/25/16 00:03 04:42 04:42 WBC RBC 3.03 L Hgb 8.6 L Hct 25.3 L MCV MCH MCHC RDW 16.2 H Plt Count Lymph % (Auto) [place] % (Auto) 8.1 H Lymph # [place] # Baso # Seg Neutrophils % 71.3 H Seg Neuts % (Manual) Lymphocytes % (Manual) Monocytes % (Manual) Eosinophils % (Manual) Basophils % (Manual) Nucleated RBC % Seg Neutrophils # Seg Neutrophils # Man Lymphocytes # (Manual) Monocytes # (Manual) Eosinophils # (Manual) Basophils # (Manual) PT INR Fibrinogen dRVVT Confirm Interp Factor V Activity POC ABG pH POC ABG pCO2 POC ABG pO2 ABG pO2 ABG HCO3 ABG Base Excess ABG Hemoglobin Oxyhemoglobin Sodium Potassium Chloride Carbon Dioxide BUN 61 H Creatinine 3.0 H Glucose 102 H POC Glucose 113 H Lactic Acid Calcium 8.2 L Phosphorus Magnesium Direct Bilirubin AST ALT Alkaline Phosphatase 142 H Lactate Dehydrogenase Troponin T C-Reactive Protein Total Protein 5.7 L Albumin 1.5 L Prealbumin Triglycerides Cholesterol LDL Cholesterol Direct HDL Cholesterol Urine pH Urine WBC (Auto) Urine Creatinine Urine Total Protein Fluid Total Protein Vancomycin Trough Rheumatoid Factor Complement C4 Miscellaneous Test Crossmatch 11/25/16 11/25/16 11/25/16 05:12 11:31 14:12 WBC RBC Hgb Hct MCV MCH MCHC RDW Plt Count Lymph % (Auto) [place] % (Auto) Lymph # [place] # Baso # Seg Neutrophils % Seg Neuts % (Manual) Lymphocytes % (Manual) Monocytes % (Manual) Eosinophils % (Manual) Basophils % (Manual) Nucleated RBC % Seg Neutrophils # Seg Neutrophils # Man Lymphocytes # (Manual) Monocytes # (Manual) Eosinophils # (Manual) Basophils # (Manual) PT INR Fibrinogen dRVVT Confirm Interp Factor V Activity POC ABG pH 7.487 H POC ABG pCO2 POC ABG pO2 153 H ABG pO2 ABG HCO3 ABG Base Excess ABG Hemoglobin Oxyhemoglobin Sodium Potassium Chloride Carbon Dioxide BUN Creatinine Glucose POC Glucose 131 H 140 H Lactic Acid Calcium Phosphorus Magnesium Direct Bilirubin AST ALT Alkaline Phosphatase Lactate Dehydrogenase Troponin T C-Reactive Protein Total Protein Albumin Prealbumin Triglycerides Cholesterol LDL Cholesterol Direct HDL Cholesterol Urine pH Urine WBC (Auto) Urine Creatinine Urine Total Protein Fluid Total Protein Vancomycin Trough Rheumatoid Factor Complement C4 Miscellaneous Test Crossmatch 11/25/16 11/26/16 11/26/16 17:23 00:09 05:13 WBC RBC 2.94 L Hgb 8.4 L Hct 24.6 L MCV MCH MCHC RDW 16.4 H Plt Count Lymph % (Auto) [place] % (Auto) 12.3 H Lymph # [place] # 1.1 H Baso # Seg Neutrophils % Seg Neuts % (Manual) Lymphocytes % (Manual) Monocytes % (Manual) Eosinophils % (Manual) Basophils % (Manual) Nucleated RBC % Seg Neutrophils # Seg Neutrophils # Man Lymphocytes # (Manual) Monocytes # (Manual) Eosinophils # (Manual) Basophils # (Manual) PT INR Fibrinogen dRVVT Confirm Interp Factor V Activity POC ABG pH POC ABG pCO2 POC ABG pO2 ABG pO2 ABG HCO3 ABG Base Excess ABG Hemoglobin Oxyhemoglobin Sodium Potassium Chloride Carbon Dioxide BUN Creatinine Glucose POC Glucose 146 H 112 H Lactic Acid Calcium Phosphorus Magnesium Direct Bilirubin AST ALT Alkaline Phosphatase Lactate Dehydrogenase Troponin T C-Reactive Protein Total Protein Albumin Prealbumin Triglycerides Cholesterol LDL Cholesterol Direct HDL Cholesterol Urine pH Urine WBC (Auto) Urine Creatinine Urine Total Protein Fluid Total Protein Vancomycin Trough Rheumatoid Factor Complement C4 Miscellaneous Test Crossmatch 11/26/16 11/26/16 11/26/16 05:13 05:28 11:53 WBC RBC Hgb Hct MCV MCH MCHC RDW Plt Count Lymph % (Auto) [place] % (Auto) Lymph # [place] # Baso # Seg Neutrophils % Seg Neuts % (Manual) Lymphocytes % (Manual) Monocytes % (Manual) Eosinophils % (Manual) Basophils % (Manual) Nucleated RBC % Seg Neutrophils # Seg Neutrophils # Man Lymphocytes # (Manual) Monocytes # (Manual) Eosinophils # (Manual) Basophils # (Manual) PT INR Fibrinogen dRVVT Confirm Interp Factor V Activity POC ABG pH POC ABG pCO2 POC ABG pO2 ABG pO2 ABG HCO3 ABG Base Excess ABG Hemoglobin Oxyhemoglobin Sodium Potassium Chloride 97.8 L Carbon Dioxide BUN 37 H Creatinine 2.0 H Glucose 109 H POC Glucose 117 H 111 H Lactic Acid Calcium 7.9 L Phosphorus 1.80 L D Magnesium Direct Bilirubin AST ALT Alkaline Phosphatase Lactate Dehydrogenase Troponin T C-Reactive Protein Total Protein Albumin Prealbumin Triglycerides Cholesterol LDL Cholesterol Direct HDL Cholesterol Urine pH Urine WBC (Auto) Urine Creatinine Urine Total Protein Fluid Total Protein Vancomycin Trough Rheumatoid Factor Complement C4 Miscellaneous Test Crossmatch 11/26/16 11/27/16 11/27/16 17:14 04:50 06:02 WBC RBC Hgb Hct MCV MCH MCHC RDW Plt Count Lymph % (Auto) [place] % (Auto) Lymph # [place] # Baso # Seg Neutrophils % Seg Neuts % (Manual) Lymphocytes % (Manual) Monocytes % (Manual) Eosinophils % (Manual) Basophils % (Manual) Nucleated RBC % Seg Neutrophils # Seg Neutrophils # Man Lymphocytes # (Manual) Monocytes # (Manual) Eosinophils # (Manual) Basophils # (Manual) PT INR Fibrinogen dRVVT Confirm Interp Factor V Activity POC ABG pH POC ABG pCO2 POC ABG pO2 ABG pO2 75.2 L ABG HCO3 26.4 H ABG Base Excess ABG Hemoglobin 7.6 L Oxyhemoglobin 94.8 L Sodium Potassium Chloride Carbon Dioxide BUN 49 H Creatinine 2.3 H Glucose POC Glucose 115 H Lactic Acid Calcium Phosphorus 1.50 L Magnesium Direct Bilirubin AST ALT Alkaline Phosphatase Lactate Dehydrogenase Troponin T C-Reactive Protein Total Protein Albumin Prealbumin Triglycerides Cholesterol LDL Cholesterol Direct HDL Cholesterol Urine pH Urine WBC (Auto) Urine Creatinine Urine Total Protein Fluid Total Protein Vancomycin Trough Rheumatoid Factor Complement C4 Miscellaneous Test Crossmatch 11/27/16 11/27/16 11/27/16 06:02 11:25 17:25 WBC 11.6 H RBC 2.75 L Hgb 7.6 L Hct 23.4 L MCV MCH MCHC RDW 16.5 H Plt Count Lymph % (Auto) [place] % (Auto) Lymph # [place] # Baso # Seg Neutrophils % Seg Neuts % (Manual) Lymphocytes % (Manual) Monocytes % (Manual) Eosinophils % (Manual) Basophils % (Manual) Nucleated RBC % Seg Neutrophils # Seg Neutrophils # Man Lymphocytes # (Manual) Monocytes # (Manual) Eosinophils # (Manual) Basophils # (Manual) PT INR Fibrinogen dRVVT Confirm Interp Factor V Activity POC ABG pH POC ABG pCO2 POC ABG pO2 ABG pO2 ABG HCO3 ABG Base Excess ABG Hemoglobin Oxyhemoglobin Sodium Potassium Chloride Carbon Dioxide BUN Creatinine Glucose POC Glucose 114 H 126 H Lactic Acid Calcium Phosphorus Magnesium Direct Bilirubin AST ALT Alkaline Phosphatase Lactate Dehydrogenase Troponin T C-Reactive Protein Total Protein Albumin Prealbumin Triglycerides Cholesterol LDL Cholesterol Direct HDL Cholesterol Urine pH Urine WBC (Auto) Urine Creatinine Urine Total Protein Fluid Total Protein Vancomycin Trough Rheumatoid Factor Complement C4 Miscellaneous Test Crossmatch 11/28/16 11/28/16 11/28/16 04:45 05:33 05:44 WBC RBC Hgb Hct MCV MCH MCHC RDW Plt Count Lymph % (Auto) [place] % (Auto) Lymph # [place] # Baso # Seg Neutrophils % Seg Neuts % (Manual) Lymphocytes % (Manual) Monocytes % (Manual) Eosinophils % (Manual) Basophils % (Manual) Nucleated RBC % Seg Neutrophils # Seg Neutrophils # Man Lymphocytes # (Manual) Monocytes # (Manual) Eosinophils # (Manual) Basophils # (Manual) PT INR Fibrinogen dRVVT Confirm Interp Factor V Activity POC ABG pH POC ABG pCO2 POC ABG pO2 ABG pO2 99.3 H ABG HCO3 ABG Base Excess ABG Hemoglobin 8.3 L Oxyhemoglobin Sodium Potassium Chloride Carbon Dioxide BUN 63 H Creatinine 2.4 H Glucose 102 H POC Glucose 108 H Lactic Acid Calcium Phosphorus 1.80 L Magnesium Direct Bilirubin AST ALT Alkaline Phosphatase Lactate Dehydrogenase Troponin T C-Reactive Protein Total Protein Albumin Prealbumin Triglycerides Cholesterol LDL Cholesterol Direct HDL Cholesterol Urine pH Urine WBC (Auto) Urine Creatinine Urine Total Protein Fluid Total Protein Vancomycin Trough Rheumatoid Factor Complement C4 Miscellaneous Test Crossmatch 11/28/16 11/28/16 11/28/16 12:31 16:09 23:46 WBC RBC Hgb Hct MCV MCH MCHC RDW Plt Count Lymph % (Auto) [place] % (Auto) Lymph # [place] # Baso # Seg Neutrophils % Seg Neuts % (Manual) Lymphocytes % (Manual) Monocytes % (Manual) Eosinophils % (Manual) Basophils % (Manual) Nucleated RBC % Seg Neutrophils # Seg Neutrophils # Man Lymphocytes # (Manual) Monocytes # (Manual) Eosinophils # (Manual) Basophils # (Manual) PT INR Fibrinogen dRVVT Confirm Interp Factor V Activity POC ABG pH POC ABG pCO2 POC ABG pO2 ABG pO2 ABG HCO3 ABG Base Excess ABG Hemoglobin Oxyhemoglobin Sodium Potassium Chloride Carbon Dioxide BUN Creatinine Glucose POC Glucose 126 H 111 H 119 H Lactic Acid Calcium Phosphorus Magnesium Direct Bilirubin AST ALT Alkaline Phosphatase Lactate Dehydrogenase Troponin T C-Reactive Protein Total Protein Albumin Prealbumin Triglycerides Cholesterol LDL Cholesterol Direct HDL Cholesterol Urine pH Urine WBC (Auto) Urine Creatinine Urine Total Protein Fluid Total Protein Vancomycin Trough Rheumatoid Factor Complement C4 Miscellaneous Test Crossmatch 11/29/16 11/29/16 11/29/16 03:33 04:52 05:10 WBC RBC Hgb Hct MCV MCH MCHC RDW Plt Count Lymph % (Auto) [place] % (Auto) Lymph # [place] # Baso # Seg Neutrophils % Seg Neuts % (Manual) Lymphocytes % (Manual) Monocytes % (Manual) Eosinophils % (Manual) Basophils % (Manual) Nucleated RBC % Seg Neutrophils # Seg Neutrophils # Man Lymphocytes # (Manual) Monocytes # (Manual) Eosinophils # (Manual) Basophils # (Manual) PT INR Fibrinogen dRVVT Confirm Interp Factor V Activity POC ABG pH POC ABG pCO2 POC ABG pO2 ABG pO2 ABG HCO3 ABG Base Excess ABG Hemoglobin 7.0 L Oxyhemoglobin 94.9 L Sodium Potassium Chloride Carbon Dioxide BUN 73 H Creatinine 2.7 H Glucose POC Glucose 108 H Lactic Acid Calcium Phosphorus Magnesium Direct Bilirubin AST ALT Alkaline Phosphatase Lactate Dehydrogenase Troponin T C-Reactive Protein Total Protein Albumin Prealbumin Triglycerides Cholesterol LDL Cholesterol Direct HDL Cholesterol Urine pH Urine WBC (Auto) Urine Creatinine Urine Total Protein Fluid Total Protein Vancomycin Trough Rheumatoid Factor Complement C4 Miscellaneous Test Crossmatch 11/29/16 11/29/16 11/29/16 12:16 18:05 23:46 WBC RBC Hgb Hct MCV MCH MCHC RDW Plt Count Lymph % (Auto) [place] % (Auto) Lymph # [place] # Baso # Seg Neutrophils % Seg Neuts % (Manual) Lymphocytes % (Manual) Monocytes % (Manual) Eosinophils % (Manual) Basophils % (Manual) Nucleated RBC % Seg Neutrophils # Seg Neutrophils # Man Lymphocytes # (Manual) Monocytes # (Manual) Eosinophils # (Manual) Basophils # (Manual) PT INR Fibrinogen dRVVT Confirm Interp Factor V Activity POC ABG pH POC ABG pCO2 POC ABG pO2 ABG pO2 ABG HCO3 ABG Base Excess ABG Hemoglobin Oxyhemoglobin Sodium Potassium Chloride Carbon Dioxide BUN Creatinine Glucose POC Glucose 133 H 146 H 141 H Lactic Acid Calcium Phosphorus Magnesium Direct Bilirubin AST ALT Alkaline Phosphatase Lactate Dehydrogenase Troponin T C-Reactive Protein Total Protein Albumin Prealbumin Triglycerides Cholesterol LDL Cholesterol Direct HDL Cholesterol Urine pH Urine WBC (Auto) Urine Creatinine Urine Total Protein Fluid Total Protein Vancomycin Trough Rheumatoid Factor Complement C4 Miscellaneous Test Crossmatch 11/30/16 11/30/16 11/30/16 04:17 04:17 04:32 WBC 12.0 H RBC 2.80 L Hgb 7.8 L Hct 23.6 L MCV MCH MCHC RDW 16.6 H Plt Count Lymph % (Auto) [place] % (Auto) 11.3 H Lymph # [place] # 1.4 H Baso # Seg Neutrophils % Seg Neuts % (Manual) Lymphocytes % (Manual) Monocytes % (Manual) Eosinophils % (Manual) Basophils % (Manual) Nucleated RBC % Seg Neutrophils # 8.2 H Seg Neutrophils # Man Lymphocytes # (Manual) Monocytes # (Manual) Eosinophils # (Manual) Basophils # (Manual) PT INR Fibrinogen dRVVT Confirm Interp Factor V Activity POC ABG pH POC ABG pCO2 POC ABG pO2 ABG pO2 ABG HCO3 ABG Base Excess ABG Hemoglobin Oxyhemoglobin Sodium 169 H* D Potassium 5.1 H Chloride 121.5 H Carbon Dioxide BUN 34 H Creatinine 1.3 H D Glucose 133 H POC Glucose 131 H Lactic Acid Calcium 10.3 H Phosphorus Magnesium Direct Bilirubin AST ALT Alkaline Phosphatase Lactate Dehydrogenase Troponin T C-Reactive Protein Total Protein Albumin Prealbumin Triglycerides Cholesterol LDL Cholesterol Direct HDL Cholesterol Urine pH Urine WBC (Auto) Urine Creatinine Urine Total Protein Fluid Total Protein Vancomycin Trough Rheumatoid Factor Complement C4 Miscellaneous Test Crossmatch 11/30/16 11/30/16 11/30/16 05:45 11:10 17:26 WBC RBC Hgb Hct MCV MCH MCHC RDW Plt Count Lymph % (Auto) [place] % (Auto) Lymph # [place] # Baso # Seg Neutrophils % Seg Neuts % (Manual) Lymphocytes % (Manual) Monocytes % (Manual) Eosinophils % (Manual) Basophils % (Manual) Nucleated RBC % Seg Neutrophils # Seg Neutrophils # Man Lymphocytes # (Manual) Monocytes # (Manual) Eosinophils # (Manual) Basophils # (Manual) PT INR Fibrinogen dRVVT Confirm Interp Factor V Activity POC ABG pH POC ABG pCO2 POC ABG pO2 ABG pO2 ABG HCO3 ABG Base Excess ABG Hemoglobin Oxyhemoglobin Sodium Potassium Chloride Carbon Dioxide BUN 45 H Creatinine 1.6 H Glucose 131 H POC Glucose 146 H 134 H Lactic Acid Calcium Phosphorus Magnesium Direct Bilirubin AST ALT Alkaline Phosphatase Lactate Dehydrogenase Troponin T C-Reactive Protein Total Protein Albumin Prealbumin Triglycerides Cholesterol LDL Cholesterol Direct HDL Cholesterol Urine pH Urine WBC (Auto) Urine Creatinine Urine Total Protein Fluid Total Protein Vancomycin Trough Rheumatoid Factor Complement C4 Miscellaneous Test Crossmatch 11/30/16 12/01/16 12/01/16 23:35 00:06 03:35 WBC RBC Hgb Hct MCV MCH MCHC RDW Plt Count Lymph % (Auto) [place] % (Auto) Lymph # [place] # Baso # Seg Neutrophils % Seg Neuts % (Manual) Lymphocytes % (Manual) Monocytes % (Manual) Eosinophils % (Manual) Basophils % (Manual) Nucleated RBC % Seg Neutrophils # Seg Neutrophils # Man Lymphocytes # (Manual) Monocytes # (Manual) Eosinophils # (Manual) Basophils # (Manual) PT INR Fibrinogen dRVVT Confirm Interp Factor V Activity POC ABG pH POC ABG pCO2 POC ABG pO2 ABG pO2 ABG HCO3 ABG Base Excess ABG Hemoglobin 6.9 L Oxyhemoglobin Sodium Potassium Chloride Carbon Dioxide BUN 58 H Creatinine 1.8 H Glucose 146 H POC Glucose 151 H Lactic Acid Calcium Phosphorus Magnesium Direct Bilirubin AST ALT Alkaline Phosphatase Lactate Dehydrogenase Troponin T C-Reactive Protein Total Protein Albumin Prealbumin Triglycerides Cholesterol LDL Cholesterol Direct HDL Cholesterol Urine pH Urine WBC (Auto) Urine Creatinine Urine Total Protein Fluid Total Protein Vancomycin Trough Rheumatoid Factor Complement C4 Miscellaneous Test Crossmatch 12/01/16 12/01/16 12/01/16 03:35 05:47 11:52 WBC 12.3 H RBC 2.82 L Hgb 7.8 L Hct 23.7 L MCV MCH MCHC RDW 16.7 H Plt Count Lymph % (Auto) [place] % (Auto) 9.8 H Lymph # [place] # 1.2 H Baso # Seg Neutrophils % Seg Neuts % (Manual) Lymphocytes % (Manual) Monocytes % (Manual) Eosinophils % (Manual) Basophils % (Manual) Nucleated RBC % Seg Neutrophils # 8.4 H Seg Neutrophils # Man Lymphocytes # (Manual) Monocytes # (Manual) Eosinophils # (Manual) Basophils # (Manual) PT INR Fibrinogen dRVVT Confirm Interp Factor V Activity POC ABG pH POC ABG pCO2 POC ABG pO2 ABG pO2 ABG HCO3 ABG Base Excess ABG Hemoglobin Oxyhemoglobin Sodium Potassium Chloride Carbon Dioxide BUN Creatinine Glucose POC Glucose 152 H 152 H Lactic Acid Calcium Phosphorus Magnesium Direct Bilirubin AST ALT Alkaline Phosphatase Lactate Dehydrogenase Troponin T C-Reactive Protein Total Protein Albumin Prealbumin Triglycerides Cholesterol LDL Cholesterol Direct HDL Cholesterol Urine pH Urine WBC (Auto) Urine Creatinine Urine Total Protein Fluid Total Protein Vancomycin Trough Rheumatoid Factor Complement C4 Miscellaneous Test Crossmatch 12/01/16 12/01/16 12/02/16 17:40 23:41 05:00 WBC RBC Hgb Hct MCV MCH MCHC RDW Plt Count Lymph % (Auto) [place] % (Auto) Lymph # [place] # Baso # Seg Neutrophils % Seg Neuts % (Manual) Lymphocytes % (Manual) Monocytes % (Manual) Eosinophils % (Manual) Basophils % (Manual) Nucleated RBC % Seg Neutrophils # Seg Neutrophils # Man Lymphocytes # (Manual) Monocytes # (Manual) Eosinophils # (Manual) Basophils # (Manual) PT INR Fibrinogen dRVVT Confirm Interp Factor V Activity POC ABG pH POC ABG pCO2 POC ABG pO2 ABG pO2 ABG HCO3 ABG Base Excess ABG Hemoglobin Oxyhemoglobin Sodium Potassium Chloride Carbon Dioxide BUN 45 H Creatinine Glucose 115 H POC Glucose 140 H 144 H Lactic Acid Calcium Phosphorus Magnesium Direct Bilirubin AST ALT Alkaline Phosphatase Lactate Dehydrogenase Troponin T C-Reactive Protein Total Protein Albumin Prealbumin Triglycerides Cholesterol LDL Cholesterol Direct HDL Cholesterol Urine pH Urine WBC (Auto) Urine Creatinine Urine Total Protein Fluid Total Protein Vancomycin Trough Rheumatoid Factor Complement C4 Miscellaneous Test Crossmatch 12/02/16 12/02/16 12/02/16 05:31 11:20 17:38 WBC RBC Hgb Hct MCV MCH MCHC RDW Plt Count Lymph % (Auto) [place] % (Auto) Lymph # [place] # Baso # Seg Neutrophils % Seg Neuts % (Manual) Lymphocytes % (Manual) Monocytes % (Manual) Eosinophils % (Manual) Basophils % (Manual) Nucleated RBC % Seg Neutrophils # Seg Neutrophils # Man Lymphocytes # (Manual) Monocytes # (Manual) Eosinophils # (Manual) Basophils # (Manual) PT INR Fibrinogen dRVVT Confirm Interp Factor V Activity POC ABG pH POC ABG pCO2 POC ABG pO2 ABG pO2 ABG HCO3 ABG Base Excess ABG Hemoglobin Oxyhemoglobin Sodium Potassium Chloride Carbon Dioxide BUN Creatinine Glucose POC Glucose 136 H 177 H 139 H Lactic Acid Calcium Phosphorus Magnesium Direct Bilirubin AST ALT Alkaline Phosphatase Lactate Dehydrogenase Troponin T C-Reactive Protein Total Protein Albumin Prealbumin Triglycerides Cholesterol LDL Cholesterol Direct HDL Cholesterol Urine pH Urine WBC (Auto) Urine Creatinine Urine Total Protein Fluid Total Protein Vancomycin Trough Rheumatoid Factor Complement C4 Miscellaneous Test Crossmatch 12/02/16 12/03/16 12/03/16 23:43 04:00 04:00 WBC 20.4 H RBC 2.74 L Hgb 7.4 L Hct 23.6 L MCV MCH 27 L MCHC RDW 17.1 H Plt Count Lymph % (Auto) [place] % (Auto) Lymph # [place] # Baso # Seg Neutrophils % Seg Neuts % (Manual) 31.0 L Lymphocytes % (Manual) Monocytes % (Manual) Eosinophils % (Manual) Basophils % (Manual) Nucleated RBC % Seg Neutrophils # Seg Neutrophils # Man Lymphocytes # (Manual) Monocytes # (Manual) Eosinophils # (Manual) Basophils # (Manual) PT INR Fibrinogen dRVVT Confirm Interp Factor V Activity POC ABG pH POC ABG pCO2 POC ABG pO2 ABG pO2 ABG HCO3 ABG Base Excess ABG Hemoglobin Oxyhemoglobin Sodium Potassium Chloride Carbon Dioxide BUN 61 H Creatinine 1.6 H Glucose 119 H POC Glucose 158 H Lactic Acid Calcium Phosphorus Magnesium Direct Bilirubin AST ALT Alkaline Phosphatase Lactate Dehydrogenase Troponin T C-Reactive Protein Total Protein Albumin Prealbumin Triglycerides Cholesterol LDL Cholesterol Direct HDL Cholesterol Urine pH Urine WBC (Auto) Urine Creatinine Urine Total Protein Fluid Total Protein Vancomycin Trough Rheumatoid Factor Complement C4 Miscellaneous Test Crossmatch 12/03/16 12/03/16 12/03/16 05:02 12:11 18:16 WBC RBC Hgb Hct MCV MCH MCHC RDW Plt Count Lymph % (Auto) [place] % (Auto) Lymph # [place] # Baso # Seg Neutrophils % Seg Neuts % (Manual) Lymphocytes % (Manual) Monocytes % (Manual) Eosinophils % (Manual) Basophils % (Manual) Nucleated RBC % Seg Neutrophils # Seg Neutrophils # Man Lymphocytes # (Manual) Monocytes # (Manual) Eosinophils # (Manual) Basophils # (Manual) PT INR Fibrinogen dRVVT Confirm Interp Factor V Activity POC ABG pH POC ABG pCO2 POC ABG pO2 ABG pO2 ABG HCO3 ABG Base Excess ABG Hemoglobin Oxyhemoglobin Sodium Potassium Chloride Carbon Dioxide BUN Creatinine Glucose POC Glucose 146 H 157 H 124 H Lactic Acid Calcium Phosphorus Magnesium Direct Bilirubin AST ALT Alkaline Phosphatase Lactate Dehydrogenase Troponin T C-Reactive Protein Total Protein Albumin Prealbumin Triglycerides Cholesterol LDL Cholesterol Direct HDL Cholesterol Urine pH Urine WBC (Auto) Urine Creatinine Urine Total Protein Fluid Total Protein Vancomycin Trough Rheumatoid Factor Complement C4 Miscellaneous Test Crossmatch 12/03/16 12/04/16 12/04/16 23:41 04:00 04:45 WBC RBC Hgb Hct MCV MCH MCHC RDW Plt Count Lymph % (Auto) [place] % (Auto) Lymph # [place] # Baso # Seg Neutrophils % Seg Neuts % (Manual) Lymphocytes % (Manual) Monocytes % (Manual) Eosinophils % (Manual) Basophils % (Manual) Nucleated RBC % Seg Neutrophils # Seg Neutrophils # Man Lymphocytes # (Manual) Monocytes # (Manual) Eosinophils # (Manual) Basophils # (Manual) PT INR Fibrinogen dRVVT Confirm Interp Factor V Activity POC ABG pH POC ABG pCO2 POC ABG pO2 ABG pO2 ABG HCO3 ABG Base Excess ABG Hemoglobin Oxyhemoglobin Sodium Potassium Chloride Carbon Dioxide BUN 76 H Creatinine 1.6 H Glucose POC Glucose 130 H 136 H Lactic Acid Calcium Phosphorus Magnesium Direct Bilirubin AST ALT Alkaline Phosphatase 155 H Lactate Dehydrogenase Troponin T C-Reactive Protein Total Protein 5.5 L Albumin 1.5 L Prealbumin Triglycerides Cholesterol LDL Cholesterol Direct HDL Cholesterol Urine pH Urine WBC (Auto) Urine Creatinine Urine Total Protein Fluid Total Protein Vancomycin Trough Rheumatoid Factor Complement C4 Miscellaneous Test Crossmatch 12/04/16 12/04/16 12/05/16 12:08 17:23 00:10 WBC RBC Hgb Hct MCV MCH MCHC RDW Plt Count Lymph % (Auto) [place] % (Auto) Lymph # [place] # Baso # Seg Neutrophils % Seg Neuts % (Manual) Lymphocytes % (Manual) Monocytes % (Manual) Eosinophils % (Manual) Basophils % (Manual) Nucleated RBC % Seg Neutrophils # Seg Neutrophils # Man Lymphocytes # (Manual) Monocytes # (Manual) Eosinophils # (Manual) Basophils # (Manual) PT INR Fibrinogen dRVVT Confirm Interp Factor V Activity POC ABG pH POC ABG pCO2 POC ABG pO2 ABG pO2 ABG HCO3 ABG Base Excess ABG Hemoglobin Oxyhemoglobin Sodium Potassium Chloride Carbon Dioxide BUN Creatinine Glucose POC Glucose 114 H 129 H 124 H Lactic Acid Calcium Phosphorus Magnesium Direct Bilirubin AST ALT Alkaline Phosphatase Lactate Dehydrogenase Troponin T C-Reactive Protein Total Protein Albumin Prealbumin Triglycerides Cholesterol LDL Cholesterol Direct HDL Cholesterol Urine pH Urine WBC (Auto) Urine Creatinine Urine Total Protein Fluid Total Protein Vancomycin Trough Rheumatoid Factor Complement C4 Miscellaneous Test Crossmatch 12/05/16 12/05/16 12/05/16 05:00 05:00 05:18 WBC RBC Hgb Hct MCV MCH MCHC RDW Plt Count Lymph % (Auto) [place] % (Auto) Lymph # [place] # Baso # Seg Neutrophils % Seg Neuts % (Manual) Lymphocytes % (Manual) Monocytes % (Manual) Eosinophils % (Manual) Basophils % (Manual) Nucleated RBC % Seg Neutrophils # Seg Neutrophils # Man Lymphocytes # (Manual) Monocytes # (Manual) Eosinophils # (Manual) Basophils # (Manual) PT INR Fibrinogen dRVVT Confirm Interp Factor V Activity POC ABG pH POC ABG pCO2 POC ABG pO2 ABG pO2 ABG HCO3 ABG Base Excess ABG Hemoglobin Oxyhemoglobin Sodium Potassium Chloride Carbon Dioxide 21 L BUN 85 H Creatinine 1.9 H Glucose 131 H POC Glucose 154 H Lactic Acid Calcium Phosphorus Magnesium Direct Bilirubin AST ALT Alkaline Phosphatase Lactate Dehydrogenase Troponin T C-Reactive Protein 19.30 H Total Protein Albumin Prealbumin Triglycerides Cholesterol LDL Cholesterol Direct HDL Cholesterol Urine pH Urine WBC (Auto) Urine Creatinine Urine Total Protein Fluid Total Protein Vancomycin Trough Rheumatoid Factor Complement C4 Miscellaneous Test Crossmatch 12/05/16 12/05/16 12/05/16 11:43 17:46 23:25 WBC RBC Hgb Hct MCV MCH MCHC RDW Plt Count Lymph % (Auto) [place] % (Auto) Lymph # [place] # Baso # Seg Neutrophils % Seg Neuts % (Manual) Lymphocytes % (Manual) Monocytes % (Manual) Eosinophils % (Manual) Basophils % (Manual) Nucleated RBC % Seg Neutrophils # Seg Neutrophils # Man Lymphocytes # (Manual) Monocytes # (Manual) Eosinophils # (Manual) Basophils # (Manual) PT INR Fibrinogen dRVVT Confirm Interp Factor V Activity POC ABG pH POC ABG pCO2 POC ABG pO2 ABG pO2 ABG HCO3 ABG Base Excess ABG Hemoglobin Oxyhemoglobin Sodium Potassium Chloride Carbon Dioxide BUN Creatinine Glucose POC Glucose 117 H 113 H 111 H Lactic Acid Calcium Phosphorus Magnesium Direct Bilirubin AST ALT Alkaline Phosphatase Lactate Dehydrogenase Troponin T C-Reactive Protein Total Protein Albumin Prealbumin Triglycerides Cholesterol LDL Cholesterol Direct HDL Cholesterol Urine pH Urine WBC (Auto) Urine Creatinine Urine Total Protein Fluid Total Protein Vancomycin Trough Rheumatoid Factor Complement C4 Miscellaneous Test Crossmatch 12/05/16 12/06/16 12/06/16 Unknown 04:58 06:00 WBC RBC Hgb Hct MCV MCH MCHC RDW Plt Count Lymph % (Auto) [place] % (Auto) Lymph # [place] # Baso # Seg Neutrophils % Seg Neuts % (Manual) Lymphocytes % (Manual) Monocytes % (Manual) Eosinophils % (Manual) Basophils % (Manual) Nucleated RBC % Seg Neutrophils # Seg Neutrophils # Man Lymphocytes # (Manual) Monocytes # (Manual) Eosinophils # (Manual) Basophils # (Manual) PT INR Fibrinogen dRVVT Confirm Interp Factor V Activity POC ABG pH POC ABG pCO2 POC ABG pO2 ABG pO2 75.2 L ABG HCO3 ABG Base Excess -3.4 L ABG Hemoglobin 7.4 L Oxyhemoglobin 94.5 L Sodium Potassium Chloride Carbon Dioxide 20 L BUN 99 H Creatinine 2.1 H Glucose 126 H POC Glucose 145 H Lactic Acid Calcium Phosphorus 4.80 H Magnesium Direct Bilirubin AST ALT Alkaline Phosphatase Lactate Dehydrogenase Troponin T C-Reactive Protein Total Protein Albumin Prealbumin Triglycerides Cholesterol LDL Cholesterol Direct HDL Cholesterol Urine pH Urine WBC (Auto) Urine Creatinine Urine Total Protein Fluid Total Protein Vancomycin Trough Rheumatoid Factor Complement C4 Miscellaneous Test Crossmatch 12/06/16 12/06/16 12/06/16 06:46 11:54 17:55 WBC RBC Hgb 8.3 L Hct 26.4 L MCV MCH MCHC RDW Plt Count Lymph % (Auto) [place] % (Auto) Lymph # [place] # Baso # Seg Neutrophils % Seg Neuts % (Manual) Lymphocytes % (Manual) Monocytes % (Manual) Eosinophils % (Manual) Basophils % (Manual) Nucleated RBC % Seg Neutrophils # Seg Neutrophils # Man Lymphocytes # (Manual) Monocytes # (Manual) Eosinophils # (Manual) Basophils # (Manual) PT INR Fibrinogen dRVVT Confirm Interp Factor V Activity POC ABG pH POC ABG pCO2 POC ABG pO2 ABG pO2 ABG HCO3 ABG Base Excess ABG Hemoglobin Oxyhemoglobin Sodium Potassium Chloride Carbon Dioxide BUN Creatinine Glucose POC Glucose 126 H 157 H Lactic Acid Calcium Phosphorus Magnesium Direct Bilirubin AST ALT Alkaline Phosphatase Lactate Dehydrogenase Troponin T C-Reactive Protein Total Protein Albumin Prealbumin Triglycerides Cholesterol LDL Cholesterol Direct HDL Cholesterol Urine pH Urine WBC (Auto) Urine Creatinine Urine Total Protein Fluid Total Protein Vancomycin Trough Rheumatoid Factor Complement C4 Miscellaneous Test Crossmatch 12/06/16 12/07/16 12/07/16 23:59 05:34 06:30 WBC RBC Hgb Hct MCV MCH MCHC RDW Plt Count Lymph % (Auto) [place] % (Auto) Lymph # [place] # Baso # Seg Neutrophils % Seg Neuts % (Manual) Lymphocytes % (Manual) Monocytes % (Manual) Eosinophils % (Manual) Basophils % (Manual) Nucleated RBC % Seg Neutrophils # Seg Neutrophils # Man Lymphocytes # (Manual) Monocytes # (Manual) Eosinophils # (Manual) Basophils # (Manual) PT INR Fibrinogen dRVVT Confirm Interp Factor V Activity POC ABG pH POC ABG pCO2 POC ABG pO2 ABG pO2 ABG HCO3 ABG Base Excess ABG Hemoglobin Oxyhemoglobin Sodium Potassium Chloride Carbon Dioxide BUN 67 H Creatinine 1.4 H Glucose 126 H POC Glucose 129 H 129 H Lactic Acid Calcium Phosphorus Magnesium Direct Bilirubin AST ALT Alkaline Phosphatase Lactate Dehydrogenase Troponin T C-Reactive Protein Total Protein Albumin Prealbumin Triglycerides Cholesterol LDL Cholesterol Direct HDL Cholesterol Urine pH Urine WBC (Auto) Urine Creatinine Urine Total Protein Fluid Total Protein Vancomycin Trough Rheumatoid Factor Complement C4 Miscellaneous Test Crossmatch 12/07/16 12/07/16 12/07/16 06:30 08:00 09:45 WBC 18.8 H RBC 2.52 L Hgb 6.9 L 6.8 L Hct 21.2 L 21.1 L MCV MCH 27 L MCHC RDW 18.0 H Plt Count Lymph % (Auto) [place] % (Auto) 9.9 H Lymph # [place] # 1.9 H Baso # Seg Neutrophils % 71.8 H Seg Neuts % (Manual) Lymphocytes % (Manual) Monocytes % (Manual) Eosinophils % (Manual) Basophils % (Manual) Nucleated RBC % Seg Neutrophils # 13.5 H Seg Neutrophils # Man Lymphocytes # (Manual) Monocytes # (Manual) Eosinophils # (Manual) Basophils # (Manual) PT INR Fibrinogen dRVVT Confirm Interp Factor V Activity POC ABG pH POC ABG pCO2 POC ABG pO2 ABG pO2 ABG HCO3 ABG Base Excess ABG Hemoglobin Oxyhemoglobin Sodium Potassium Chloride Carbon Dioxide BUN Creatinine Glucose POC Glucose Lactic Acid Calcium Phosphorus Magnesium Direct Bilirubin AST ALT Alkaline Phosphatase Lactate Dehydrogenase Troponin T C-Reactive Protein Total Protein Albumin Prealbumin Triglycerides Cholesterol LDL Cholesterol Direct HDL Cholesterol Urine pH Urine WBC (Auto) Urine Creatinine Urine Total Protein Fluid Total Protein Vancomycin Trough Rheumatoid Factor Complement C4 Miscellaneous Test Crossmatch See Detail 12/07/16 12/07/16 12/07/16 11:44 18:19 23:59 WBC RBC Hgb Hct MCV MCH MCHC RDW Plt Count Lymph % (Auto) [place] % (Auto) Lymph # [place] # Baso # Seg Neutrophils % Seg Neuts % (Manual) Lymphocytes % (Manual) Monocytes % (Manual) Eosinophils % (Manual) Basophils % (Manual) Nucleated RBC % Seg Neutrophils # Seg Neutrophils # Man Lymphocytes # (Manual) Monocytes # (Manual) Eosinophils # (Manual) Basophils # (Manual) PT INR Fibrinogen dRVVT Confirm Interp Factor V Activity POC ABG pH POC ABG pCO2 POC ABG pO2 ABG pO2 ABG HCO3 ABG Base Excess ABG Hemoglobin Oxyhemoglobin Sodium Potassium Chloride Carbon Dioxide BUN Creatinine Glucose POC Glucose 137 H 138 H 133 H Lactic Acid Calcium Phosphorus Magnesium Direct Bilirubin AST ALT Alkaline Phosphatase Lactate Dehydrogenase Troponin T C-Reactive Protein Total Protein Albumin Prealbumin Triglycerides Cholesterol LDL Cholesterol Direct HDL Cholesterol Urine pH Urine WBC (Auto) Urine Creatinine Urine Total Protein Fluid Total Protein Vancomycin Trough Rheumatoid Factor Complement C4 Miscellaneous Test Crossmatch 12/08/16 12/08/16 12/08/16 05:25 05:30 05:30 WBC 23.8 H RBC 2.88 L Hgb 8.1 L Hct 24.3 L MCV MCH MCHC RDW 16.7 H Plt Count Lymph % (Auto) [place] % (Auto) Lymph # [place] # Baso # Seg Neutrophils % Seg Neuts % (Manual) 76.0 H Lymphocytes % (Manual) 9.0 L Monocytes % (Manual) 9.0 H Eosinophils % (Manual) Basophils % (Manual) Nucleated RBC % Seg Neutrophils # Seg Neutrophils # Man 18.1 H Lymphocytes # (Manual) Monocytes # (Manual) 2.1 H Eosinophils # (Manual) Basophils # (Manual) PT INR Fibrinogen dRVVT Confirm Interp Factor V Activity POC ABG pH POC ABG pCO2 POC ABG pO2 ABG pO2 ABG HCO3 ABG Base Excess ABG Hemoglobin Oxyhemoglobin Sodium Potassium Chloride Carbon Dioxide 21 L BUN 76 H Creatinine 1.6 H Glucose 133 H POC Glucose 177 H Lactic Acid Calcium Phosphorus Magnesium Direct Bilirubin AST ALT Alkaline Phosphatase Lactate Dehydrogenase Troponin T C-Reactive Protein Total Protein Albumin Prealbumin Triglycerides Cholesterol LDL Cholesterol Direct HDL Cholesterol Urine pH Urine WBC (Auto) Urine Creatinine Urine Total Protein Fluid Total Protein Vancomycin Trough Rheumatoid Factor Complement C4 Miscellaneous Test Crossmatch 12/08/16 12/08/16 12/09/16 11:45 18:00 00:00 WBC RBC Hgb Hct MCV MCH MCHC RDW Plt Count Lymph % (Auto) [place] % (Auto) Lymph # [place] # Baso # Seg Neutrophils % Seg Neuts % (Manual) Lymphocytes % (Manual) Monocytes % (Manual) Eosinophils % (Manual) Basophils % (Manual) Nucleated RBC % Seg Neutrophils # Seg Neutrophils # Man Lymphocytes # (Manual) Monocytes # (Manual) Eosinophils # (Manual) Basophils # (Manual) PT INR Fibrinogen dRVVT Confirm Interp Factor V Activity POC ABG pH POC ABG pCO2 POC ABG pO2 ABG pO2 ABG HCO3 ABG Base Excess ABG Hemoglobin Oxyhemoglobin Sodium Potassium Chloride Carbon Dioxide BUN Creatinine Glucose POC Glucose 163 H 123 H 137 H Lactic Acid Calcium Phosphorus Magnesium Direct Bilirubin AST ALT Alkaline Phosphatase Lactate Dehydrogenase Troponin T C-Reactive Protein Total Protein Albumin Prealbumin Triglycerides Cholesterol LDL Cholesterol Direct HDL Cholesterol Urine pH Urine WBC (Auto) Urine Creatinine Urine Total Protein Fluid Total Protein Vancomycin Trough Rheumatoid Factor Complement C4 Miscellaneous Test Crossmatch 12/09/16 12/09/16 12/09/16 05:34 06:00 06:00 WBC 15.5 H RBC 2.87 L Hgb 8.0 L Hct 24.2 L MCV MCH MCHC RDW 17.2 H Plt Count Lymph % (Auto) [place] % (Auto) 11.6 H Lymph # [place] # 1.8 H Baso # Seg Neutrophils % 70.8 H Seg Neuts % (Manual) Lymphocytes % (Manual) Monocytes % (Manual) Eosinophils % (Manual) Basophils % (Manual) Nucleated RBC % Seg Neutrophils # 11.0 H Seg Neutrophils # Man Lymphocytes # (Manual) Monocytes # (Manual) Eosinophils # (Manual) Basophils # (Manual) PT INR Fibrinogen dRVVT Confirm Interp Factor V Activity POC ABG pH POC ABG pCO2 POC ABG pO2 ABG pO2 ABG HCO3 ABG Base Excess ABG Hemoglobin Oxyhemoglobin Sodium Potassium Chloride Carbon Dioxide BUN 51 H Creatinine Glucose 117 H POC Glucose 136 H Lactic Acid Calcium Phosphorus Magnesium Direct Bilirubin AST ALT Alkaline Phosphatase Lactate Dehydrogenase Troponin T C-Reactive Protein Total Protein Albumin Prealbumin Triglycerides Cholesterol LDL Cholesterol Direct HDL Cholesterol Urine pH Urine WBC (Auto) Urine Creatinine Urine Total Protein Fluid Total Protein Vancomycin Trough Rheumatoid Factor Complement C4 Miscellaneous Test Crossmatch 12/09/16 12/09/16 12/09/16 12:29 17:52 23:10 WBC RBC Hgb Hct MCV MCH MCHC RDW Plt Count Lymph % (Auto) [place] % (Auto) Lymph # [place] # Baso # Seg Neutrophils % Seg Neuts % (Manual) Lymphocytes % (Manual) Monocytes % (Manual) Eosinophils % (Manual) Basophils % (Manual) Nucleated RBC % Seg Neutrophils # Seg Neutrophils # Man Lymphocytes # (Manual) Monocytes # (Manual) Eosinophils # (Manual) Basophils # (Manual) PT INR Fibrinogen dRVVT Confirm Interp Factor V Activity POC ABG pH POC ABG pCO2 POC ABG pO2 ABG pO2 ABG HCO3 ABG Base Excess ABG Hemoglobin Oxyhemoglobin Sodium Potassium Chloride Carbon Dioxide BUN Creatinine Glucose POC Glucose 139 H 140 H 129 H Lactic Acid Calcium Phosphorus Magnesium Direct Bilirubin AST ALT Alkaline Phosphatase Lactate Dehydrogenase Troponin T C-Reactive Protein Total Protein Albumin Prealbumin Triglycerides Cholesterol LDL Cholesterol Direct HDL Cholesterol Urine pH Urine WBC (Auto) Urine Creatinine Urine Total Protein Fluid Total Protein Vancomycin Trough Rheumatoid Factor Complement C4 Miscellaneous Test Crossmatch 12/10/16 12/10/16 12/10/16 05:00 05:00 06:54 WBC 15.7 H RBC 2.87 L Hgb 8.2 L Hct 24.4 L MCV MCH MCHC RDW 17.2 H Plt Count Lymph % (Auto) [place] % (Auto) 8.3 H Lymph # [place] # 1.3 H Baso # Seg Neutrophils % 72.8 H Seg Neuts % (Manual) Lymphocytes % (Manual) Monocytes % (Manual) Eosinophils % (Manual) Basophils % (Manual) Nucleated RBC % Seg Neutrophils # 11.4 H Seg Neutrophils # Man Lymphocytes # (Manual) Monocytes # (Manual) Eosinophils # (Manual) Basophils # (Manual) PT INR Fibrinogen dRVVT Confirm Interp Factor V Activity POC ABG pH POC ABG pCO2 POC ABG pO2 ABG pO2 ABG HCO3 ABG Base Excess ABG Hemoglobin Oxyhemoglobin Sodium Potassium Chloride Carbon Dioxide BUN 64 H Creatinine 1.4 H Glucose 134 H POC Glucose 154 H Lactic Acid Calcium Phosphorus Magnesium Direct Bilirubin AST ALT Alkaline Phosphatase Lactate Dehydrogenase Troponin T C-Reactive Protein Total Protein Albumin Prealbumin Triglycerides Cholesterol LDL Cholesterol Direct HDL Cholesterol Urine pH Urine WBC (Auto) Urine Creatinine Urine Total Protein Fluid Total Protein Vancomycin Trough Rheumatoid Factor Complement C4 Miscellaneous Test Crossmatch 12/10/16 12/10/16 12/10/16 11:58 17:29 23:52 WBC RBC Hgb Hct MCV MCH MCHC RDW Plt Count Lymph % (Auto) [place] % (Auto) Lymph # [place] # Baso # Seg Neutrophils % Seg Neuts % (Manual) Lymphocytes % (Manual) Monocytes % (Manual) Eosinophils % (Manual) Basophils % (Manual) Nucleated RBC % Seg Neutrophils # Seg Neutrophils # Man Lymphocytes # (Manual) Monocytes # (Manual) Eosinophils # (Manual) Basophils # (Manual) PT INR Fibrinogen dRVVT Confirm Interp Factor V Activity POC ABG pH POC ABG pCO2 POC ABG pO2 ABG pO2 ABG HCO3 ABG Base Excess ABG Hemoglobin Oxyhemoglobin Sodium Potassium Chloride Carbon Dioxide BUN Creatinine Glucose POC Glucose 144 H 163 H 125 H Lactic Acid Calcium Phosphorus Magnesium Direct Bilirubin AST ALT Alkaline Phosphatase Lactate Dehydrogenase Troponin T C-Reactive Protein Total Protein Albumin Prealbumin Triglycerides Cholesterol LDL Cholesterol Direct HDL Cholesterol Urine pH Urine WBC (Auto) Urine Creatinine Urine Total Protein Fluid Total Protein Vancomycin Trough Rheumatoid Factor Complement C4 Miscellaneous Test Crossmatch 12/11/16 12/11/16 12/11/16 05:38 06:30 06:30 WBC 14.4 H RBC 2.76 L Hgb 7.7 L Hct 23.4 L MCV MCH MCHC RDW 17.2 H Plt Count Lymph % (Auto) [place] % (Auto) 8.8 H Lymph # [place] # 1.3 H Baso # Seg Neutrophils % 72.5 H Seg Neuts % (Manual) Lymphocytes % (Manual) Monocytes % (Manual) Eosinophils % (Manual) Basophils % (Manual) Nucleated RBC % Seg Neutrophils # 10.5 H Seg Neutrophils # Man Lymphocytes # (Manual) Monocytes # (Manual) Eosinophils # (Manual) Basophils # (Manual) PT INR Fibrinogen dRVVT Confirm Interp Factor V Activity POC ABG pH POC ABG pCO2 POC ABG pO2 ABG pO2 ABG HCO3 ABG Base Excess ABG Hemoglobin Oxyhemoglobin Sodium Potassium Chloride Carbon Dioxide BUN 43 H Creatinine Glucose 124 H POC Glucose 141 H Lactic Acid Calcium 8.3 L Phosphorus Magnesium 1.60 L Direct Bilirubin AST ALT Alkaline Phosphatase Lactate Dehydrogenase Troponin T C-Reactive Protein Total Protein Albumin Prealbumin Triglycerides Cholesterol LDL Cholesterol Direct HDL Cholesterol Urine pH Urine WBC (Auto) Urine Creatinine Urine Total Protein Fluid Total Protein Vancomycin Trough Rheumatoid Factor Complement C4 Miscellaneous Test Crossmatch 12/11/16 12/11/16 12/11/16 11:15 17:59 23:48 WBC RBC Hgb Hct MCV MCH MCHC RDW Plt Count Lymph % (Auto) [place] % (Auto) Lymph # [place] # Baso # Seg Neutrophils % Seg Neuts % (Manual) Lymphocytes % (Manual) Monocytes % (Manual) Eosinophils % (Manual) Basophils % (Manual) Nucleated RBC % Seg Neutrophils # Seg Neutrophils # Man Lymphocytes # (Manual) Monocytes # (Manual) Eosinophils # (Manual) Basophils # (Manual) PT INR Fibrinogen dRVVT Confirm Interp Factor V Activity POC ABG pH POC ABG pCO2 POC ABG pO2 ABG pO2 ABG HCO3 ABG Base Excess ABG Hemoglobin Oxyhemoglobin Sodium Potassium Chloride Carbon Dioxide BUN Creatinine Glucose POC Glucose 188 H 106 H 119 H Lactic Acid Calcium Phosphorus Magnesium Direct Bilirubin AST ALT Alkaline Phosphatase Lactate Dehydrogenase Troponin T C-Reactive Protein Total Protein Albumin Prealbumin Triglycerides Cholesterol LDL Cholesterol Direct HDL Cholesterol Urine pH Urine WBC (Auto) Urine Creatinine Urine Total Protein Fluid Total Protein Vancomycin Trough Rheumatoid Factor Complement C4 Miscellaneous Test Crossmatch 12/12/16 12/12/16 12/12/16 05:00 06:01 12:20 WBC 16.7 H RBC 2.87 L Hgb 8.0 L Hct 24.2 L MCV MCH MCHC RDW 17.6 H Plt Count Lymph % (Auto) [place] % (Auto) Lymph # [place] # 1.2 H Baso # Seg Neutrophils % 75.3 H Seg Neuts % (Manual) Lymphocytes % (Manual) Monocytes % (Manual) Eosinophils % (Manual) Basophils % (Manual) Nucleated RBC % Seg Neutrophils # 12.6 H Seg Neutrophils # Man Lymphocytes # (Manual) Monocytes # (Manual) Eosinophils # (Manual) Basophils # (Manual) PT INR Fibrinogen dRVVT Confirm Interp Factor V Activity POC ABG pH POC ABG pCO2 POC ABG pO2 ABG pO2 ABG HCO3 ABG Base Excess ABG Hemoglobin Oxyhemoglobin Sodium Potassium Chloride Carbon Dioxide BUN Creatinine Glucose POC Glucose 134 H 149 H Lactic Acid Calcium Phosphorus Magnesium Direct Bilirubin AST ALT Alkaline Phosphatase Lactate Dehydrogenase Troponin T C-Reactive Protein Total Protein Albumin Prealbumin Triglycerides Cholesterol LDL Cholesterol Direct HDL Cholesterol Urine pH Urine WBC (Auto) Urine Creatinine Urine Total Protein Fluid Total Protein Vancomycin Trough Rheumatoid Factor Complement C4 Miscellaneous Test Crossmatch 12/12/16 12/12/16 12/12/16 17:38 23:01 Unknown WBC RBC Hgb Hct MCV MCH MCHC RDW Plt Count Lymph % (Auto) [place] % (Auto) Lymph # [place] # Baso # Seg Neutrophils % Seg Neuts % (Manual) Lymphocytes % (Manual) Monocytes % (Manual) Eosinophils % (Manual) Basophils % (Manual) Nucleated RBC % Seg Neutrophils # Seg Neutrophils # Man Lymphocytes # (Manual) Monocytes # (Manual) Eosinophils # (Manual) Basophils # (Manual) PT INR Fibrinogen dRVVT Confirm Interp Factor V Activity POC ABG pH POC ABG pCO2 POC ABG pO2 ABG pO2 ABG HCO3 ABG Base Excess ABG Hemoglobin Oxyhemoglobin Sodium Potassium Chloride Carbon Dioxide BUN 60 H Creatinine 1.3 H Glucose 126 H POC Glucose 127 H 144 H Lactic Acid Calcium Phosphorus Magnesium Direct Bilirubin AST ALT Alkaline Phosphatase Lactate Dehydrogenase Troponin T C-Reactive Protein Total Protein Albumin Prealbumin Triglycerides Cholesterol LDL Cholesterol Direct HDL Cholesterol Urine pH Urine WBC (Auto) Urine Creatinine Urine Total Protein Fluid Total Protein Vancomycin Trough Rheumatoid Factor Complement C4 Miscellaneous Test Crossmatch 12/13/16 12/13/16 12/13/16 04:00 04:00 05:19 WBC 18.7 H RBC 2.89 L Hgb 8.3 L Hct 24.6 L MCV MCH MCHC RDW 17.5 H Plt Count Lymph % (Auto) [place] % (Auto) Lymph # [place] # 1.3 H Baso # Seg Neutrophils % 71.5 H Seg Neuts % (Manual) Lymphocytes % (Manual) Monocytes % (Manual) Eosinophils % (Manual) Basophils % (Manual) Nucleated RBC % Seg Neutrophils # 13.4 H Seg Neutrophils # Man Lymphocytes # (Manual) Monocytes # (Manual) Eosinophils # (Manual) Basophils # (Manual) PT INR Fibrinogen dRVVT Confirm Interp Factor V Activity POC ABG pH POC ABG pCO2 POC ABG pO2 ABG pO2 ABG HCO3 ABG Base Excess ABG Hemoglobin Oxyhemoglobin Sodium Potassium Chloride Carbon Dioxide BUN 73 H Creatinine 1.5 H Glucose 141 H POC Glucose 171 H Lactic Acid Calcium Phosphorus Magnesium Direct Bilirubin AST ALT Alkaline Phosphatase Lactate Dehydrogenase Troponin T C-Reactive Protein Total Protein Albumin Prealbumin Triglycerides Cholesterol LDL Cholesterol Direct HDL Cholesterol Urine pH Urine WBC (Auto) Urine Creatinine Urine Total Protein Fluid Total Protein Vancomycin Trough Rheumatoid Factor Complement C4 Miscellaneous Test Crossmatch 12/13/16 12/13/16 12/14/16 12:28 16:48 00:01 WBC RBC Hgb Hct MCV MCH MCHC RDW Plt Count Lymph % (Auto) [place] % (Auto) Lymph # [place] # Baso # Seg Neutrophils % Seg Neuts % (Manual) Lymphocytes % (Manual) Monocytes % (Manual) Eosinophils % (Manual) Basophils % (Manual) Nucleated RBC % Seg Neutrophils # Seg Neutrophils # Man Lymphocytes # (Manual) Monocytes # (Manual) Eosinophils # (Manual) Basophils # (Manual) PT INR Fibrinogen dRVVT Confirm Interp Factor V Activity POC ABG pH POC ABG pCO2 POC ABG pO2 ABG pO2 ABG HCO3 ABG Base Excess ABG Hemoglobin Oxyhemoglobin Sodium Potassium Chloride Carbon Dioxide BUN Creatinine Glucose POC Glucose 206 H 173 H 139 H Lactic Acid Calcium Phosphorus Magnesium Direct Bilirubin AST ALT Alkaline Phosphatase Lactate Dehydrogenase Troponin T C-Reactive Protein Total Protein Albumin Prealbumin Triglycerides Cholesterol LDL Cholesterol Direct HDL Cholesterol Urine pH Urine WBC (Auto) Urine Creatinine Urine Total Protein Fluid Total Protein Vancomycin Trough Rheumatoid Factor Complement C4 Miscellaneous Test Crossmatch 12/14/16 12/14/16 12/14/16 05:16 06:10 11:17 WBC RBC Hgb Hct MCV MCH MCHC RDW Plt Count Lymph % (Auto) [place] % (Auto) Lymph # [place] # Baso # Seg Neutrophils % Seg Neuts % (Manual) Lymphocytes % (Manual) Monocytes % (Manual) Eosinophils % (Manual) Basophils % (Manual) Nucleated RBC % Seg Neutrophils # Seg Neutrophils # Man Lymphocytes # (Manual) Monocytes # (Manual) Eosinophils # (Manual) Basophils # (Manual) PT INR Fibrinogen dRVVT Confirm Interp Factor V Activity POC ABG pH POC ABG pCO2 POC ABG pO2 ABG pO2 ABG HCO3 ABG Base Excess ABG Hemoglobin Oxyhemoglobin Sodium Potassium Chloride Carbon Dioxide BUN 57 H Creatinine 1.4 H Glucose 135 H POC Glucose 158 H 137 H Lactic Acid Calcium Phosphorus Magnesium Direct Bilirubin AST ALT Alkaline Phosphatase Lactate Dehydrogenase Troponin T C-Reactive Protein Total Protein Albumin Prealbumin Triglycerides Cholesterol LDL Cholesterol Direct HDL Cholesterol Urine pH Urine WBC (Auto) Urine Creatinine Urine Total Protein Fluid Total Protein Vancomycin Trough Rheumatoid Factor Complement C4 Miscellaneous Test Crossmatch 12/14/16 12/14/16 12/15/16 17:52 23:27 04:00 WBC RBC Hgb Hct MCV MCH MCHC RDW Plt Count Lymph % (Auto) [place] % (Auto) Lymph # [place] # Baso # Seg Neutrophils % Seg Neuts % (Manual) Lymphocytes % (Manual) Monocytes % (Manual) Eosinophils % (Manual) Basophils % (Manual) Nucleated RBC % Seg Neutrophils # Seg Neutrophils # Man Lymphocytes # (Manual) Monocytes # (Manual) Eosinophils # (Manual) Basophils # (Manual) PT INR Fibrinogen dRVVT Confirm Interp Factor V Activity POC ABG pH POC ABG pCO2 POC ABG pO2 ABG pO2 ABG HCO3 ABG Base Excess ABG Hemoglobin Oxyhemoglobin Sodium Potassium Chloride 97.9 L Carbon Dioxide BUN 75 H Creatinine 1.6 H Glucose 122 H POC Glucose 149 H 163 H Lactic Acid Calcium Phosphorus 5.20 H Magnesium Direct Bilirubin AST ALT Alkaline Phosphatase Lactate Dehydrogenase Troponin T C-Reactive Protein Total Protein Albumin Prealbumin Triglycerides Cholesterol LDL Cholesterol Direct HDL Cholesterol Urine pH Urine WBC (Auto) Urine Creatinine Urine Total Protein Fluid Total Protein Vancomycin Trough Rheumatoid Factor Complement C4 Miscellaneous Test Crossmatch 12/15/16 12/15/16 12/15/16 05:50 11:24 17:01 WBC RBC Hgb Hct MCV MCH MCHC RDW Plt Count Lymph % (Auto) [place] % (Auto) Lymph # [place] # Baso # Seg Neutrophils % Seg Neuts % (Manual) Lymphocytes % (Manual) Monocytes % (Manual) Eosinophils % (Manual) Basophils % (Manual) Nucleated RBC % Seg Neutrophils # Seg Neutrophils # Man Lymphocytes # (Manual) Monocytes # (Manual) Eosinophils # (Manual) Basophils # (Manual) PT INR Fibrinogen dRVVT Confirm Interp Factor V Activity POC ABG pH POC ABG pCO2 POC ABG pO2 ABG pO2 ABG HCO3 ABG Base Excess ABG Hemoglobin Oxyhemoglobin Sodium Potassium Chloride Carbon Dioxide BUN Creatinine Glucose POC Glucose 150 H 146 H 167 H Lactic Acid Calcium Phosphorus Magnesium Direct Bilirubin AST ALT Alkaline Phosphatase Lactate Dehydrogenase Troponin T C-Reactive Protein Total Protein Albumin Prealbumin Triglycerides Cholesterol LDL Cholesterol Direct HDL Cholesterol Urine pH Urine WBC (Auto) Urine Creatinine Urine Total Protein Fluid Total Protein Vancomycin Trough Rheumatoid Factor Complement C4 Miscellaneous Test Crossmatch 12/15/16 12/16/16 12/16/16 23:34 05:25 11:24 WBC RBC Hgb Hct MCV MCH MCHC RDW Plt Count Lymph % (Auto) [place] % (Auto) Lymph # [place] # Baso # Seg Neutrophils % Seg Neuts % (Manual) Lymphocytes % (Manual) Monocytes % (Manual) Eosinophils % (Manual) Basophils % (Manual) Nucleated RBC % Seg Neutrophils # Seg Neutrophils # Man Lymphocytes # (Manual) Monocytes # (Manual) Eosinophils # (Manual) Basophils # (Manual) PT INR Fibrinogen dRVVT Confirm Interp Factor V Activity POC ABG pH POC ABG pCO2 POC ABG pO2 ABG pO2 ABG HCO3 ABG Base Excess ABG Hemoglobin Oxyhemoglobin Sodium Potassium Chloride Carbon Dioxide BUN Creatinine Glucose POC Glucose 127 H 139 H 165 H Lactic Acid Calcium Phosphorus Magnesium Direct Bilirubin AST ALT Alkaline Phosphatase Lactate Dehydrogenase Troponin T C-Reactive Protein Total Protein Albumin Prealbumin Triglycerides Cholesterol LDL Cholesterol Direct HDL Cholesterol Urine pH Urine WBC (Auto) Urine Creatinine Urine Total Protein Fluid Total Protein Vancomycin Trough Rheumatoid Factor Complement C4 Miscellaneous Test Crossmatch 12/16/16 12/16/16 12/16/16 15:30 16:25 17:31 WBC 17.8 H RBC 2.38 L Hgb 6.4 L Hct 20.3 L MCV MCH 27 L MCHC RDW 17.4 H Plt Count Lymph % (Auto) [place] % (Auto) Lymph # [place] # Baso # Seg Neutrophils % Seg Neuts % (Manual) Lymphocytes % (Manual) Monocytes % (Manual) 10.0 H Eosinophils % (Manual) Basophils % (Manual) Nucleated RBC % Seg Neutrophils # Seg Neutrophils # Man 8.5 H Lymphocytes # (Manual) Monocytes # (Manual) 1.8 H Eosinophils # (Manual) Basophils # (Manual) PT INR Fibrinogen dRVVT Confirm Interp Factor V Activity POC ABG pH POC ABG pCO2 POC ABG pO2 ABG pO2 ABG HCO3 ABG Base Excess ABG Hemoglobin Oxyhemoglobin Sodium Potassium Chloride Carbon Dioxide BUN Creatinine Glucose POC Glucose 176 H Lactic Acid Calcium Phosphorus Magnesium Direct Bilirubin AST ALT Alkaline Phosphatase Lactate Dehydrogenase Troponin T C-Reactive Protein Total Protein Albumin Prealbumin Triglycerides Cholesterol LDL Cholesterol Direct HDL Cholesterol Urine pH Urine WBC (Auto) Urine Creatinine Urine Total Protein Fluid Total Protein Vancomycin Trough Rheumatoid Factor Complement C4 Miscellaneous Test Crossmatch See Detail 12/17/16 12/17/16 12/17/16 00:14 04:00 05:00 WBC 20.0 H RBC 2.99 L Hgb 8.5 L Hct 25.7 L MCV MCH MCHC RDW 17.2 H Plt Count Lymph % (Auto) [place] % (Auto) Lymph # [place] # Baso # Seg Neutrophils % Seg Neuts % (Manual) Lymphocytes % (Manual) Monocytes % (Manual) Eosinophils % (Manual) Basophils % (Manual) Nucleated RBC % Seg Neutrophils # Seg Neutrophils # Man Lymphocytes # (Manual) Monocytes # (Manual) Eosinophils # (Manual) Basophils # (Manual) PT INR Fibrinogen dRVVT Confirm Interp Factor V Activity POC ABG pH POC ABG pCO2 POC ABG pO2 ABG pO2 ABG HCO3 ABG Base Excess ABG Hemoglobin Oxyhemoglobin Sodium Potassium Chloride 97.7 L Carbon Dioxide BUN 73 H Creatinine 1.7 H Glucose 136 H POC Glucose 148 H Lactic Acid Calcium Phosphorus 2.20 L Magnesium 2.70 H Direct Bilirubin AST ALT Alkaline Phosphatase Lactate Dehydrogenase Troponin T C-Reactive Protein Total Protein Albumin Prealbumin Triglycerides Cholesterol LDL Cholesterol Direct HDL Cholesterol Urine pH Urine WBC (Auto) Urine Creatinine Urine Total Protein Fluid Total Protein Vancomycin Trough Rheumatoid Factor Complement C4 Miscellaneous Test Crossmatch 12/17/16 12/17/16 12/17/16 05:39 12:50 16:32 WBC RBC Hgb Hct MCV MCH MCHC RDW Plt Count Lymph % (Auto) [place] % (Auto) Lymph # [place] # Baso # Seg Neutrophils % Seg Neuts % (Manual) Lymphocytes % (Manual) Monocytes % (Manual) Eosinophils % (Manual) Basophils % (Manual) Nucleated RBC % Seg Neutrophils # Seg Neutrophils # Man Lymphocytes # (Manual) Monocytes # (Manual) Eosinophils # (Manual) Basophils # (Manual) PT INR Fibrinogen dRVVT Confirm Interp Factor V Activity POC ABG pH POC ABG pCO2 POC ABG pO2 ABG pO2 ABG HCO3 ABG Base Excess ABG Hemoglobin Oxyhemoglobin Sodium Potassium Chloride Carbon Dioxide BUN Creatinine Glucose POC Glucose 162 H 146 H 169 H Lactic Acid Calcium Phosphorus Magnesium Direct Bilirubin AST ALT Alkaline Phosphatase Lactate Dehydrogenase Troponin T C-Reactive Protein Total Protein Albumin Prealbumin Triglycerides Cholesterol LDL Cholesterol Direct HDL Cholesterol Urine pH Urine WBC (Auto) Urine Creatinine Urine Total Protein Fluid Total Protein Vancomycin Trough Rheumatoid Factor Complement C4 Miscellaneous Test Crossmatch 12/17/16 12/18/16 12/18/16 23:57 05:00 05:32 WBC RBC Hgb Hct MCV MCH MCHC RDW Plt Count Lymph % (Auto) [place] % (Auto) Lymph # [place] # Baso # Seg Neutrophils % Seg Neuts % (Manual) Lymphocytes % (Manual) Monocytes % (Manual) Eosinophils % (Manual) Basophils % (Manual) Nucleated RBC % Seg Neutrophils # Seg Neutrophils # Man Lymphocytes # (Manual) Monocytes # (Manual) Eosinophils # (Manual) Basophils # (Manual) PT INR Fibrinogen dRVVT Confirm Interp Factor V Activity POC ABG pH POC ABG pCO2 POC ABG pO2 ABG pO2 ABG HCO3 ABG Base Excess ABG Hemoglobin Oxyhemoglobin Sodium Potassium Chloride 97.0 L Carbon Dioxide BUN 63 H Creatinine 1.4 H Glucose 174 H POC Glucose 145 H 201 H Lactic Acid Calcium Phosphorus 1.70 L D Magnesium Direct Bilirubin AST ALT Alkaline Phosphatase 257 H Lactate Dehydrogenase Troponin T C-Reactive Protein Total Protein 5.9 L Albumin 1.8 L Prealbumin Triglycerides Cholesterol LDL Cholesterol Direct HDL Cholesterol Urine pH Urine WBC (Auto) Urine Creatinine Urine Total Protein Fluid Total Protein Vancomycin Trough Rheumatoid Factor Complement C4 Miscellaneous Test Crossmatch 12/18/16 12/18/16 12/18/16 11:43 16:52 23:52 WBC RBC Hgb Hct MCV MCH MCHC RDW Plt Count Lymph % (Auto) [place] % (Auto) Lymph # [place] # Baso # Seg Neutrophils % Seg Neuts % (Manual) Lymphocytes % (Manual) Monocytes % (Manual) Eosinophils % (Manual) Basophils % (Manual) Nucleated RBC % Seg Neutrophils # Seg Neutrophils # Man Lymphocytes # (Manual) Monocytes # (Manual) Eosinophils # (Manual) Basophils # (Manual) PT INR Fibrinogen dRVVT Confirm Interp Factor V Activity POC ABG pH POC ABG pCO2 POC ABG pO2 ABG pO2 ABG HCO3 ABG Base Excess ABG Hemoglobin Oxyhemoglobin Sodium Potassium Chloride Carbon Dioxide BUN Creatinine Glucose POC Glucose 177 H 110 H 162 H Lactic Acid Calcium Phosphorus Magnesium Direct Bilirubin AST ALT Alkaline Phosphatase Lactate Dehydrogenase Troponin T C-Reactive Protein Total Protein Albumin Prealbumin Triglycerides Cholesterol LDL Cholesterol Direct HDL Cholesterol Urine pH Urine WBC (Auto) Urine Creatinine Urine Total Protein Fluid Total Protein Vancomycin Trough Rheumatoid Factor Complement C4 Miscellaneous Test Crossmatch 12/19/16 12/19/16 12/19/16 05:02 05:24 09:30 WBC 20.1 H RBC 2.73 L Hgb 7.6 L Hct 23.6 L MCV MCH MCHC RDW 17.6 H Plt Count Lymph % (Auto) [place] % (Auto) Lymph # [place] # Baso # Seg Neutrophils % Seg Neuts % (Manual) Lymphocytes % (Manual) 13.0 L Monocytes % (Manual) Eosinophils % (Manual) Basophils % (Manual) Nucleated RBC % 1.0 H Seg Neutrophils # Seg Neutrophils # Man 12.9 H Lymphocytes # (Manual) Monocytes # (Manual) 1.4 H Eosinophils # (Manual) Basophils # (Manual) 0.2 H PT INR Fibrinogen dRVVT Confirm Interp Factor V Activity POC ABG pH POC ABG pCO2 POC ABG pO2 ABG pO2 ABG HCO3 ABG Base Excess ABG Hemoglobin Oxyhemoglobin Sodium Potassium Chloride 97.8 L Carbon Dioxide BUN 84 H Creatinine 1.6 H Glucose 133 H POC Glucose 134 H Lactic Acid Calcium Phosphorus Magnesium Direct Bilirubin AST ALT Alkaline Phosphatase Lactate Dehydrogenase Troponin T C-Reactive Protein Total Protein Albumin Prealbumin Triglycerides Cholesterol LDL Cholesterol Direct HDL Cholesterol Urine pH Urine WBC (Auto) Urine Creatinine Urine Total Protein Fluid Total Protein Vancomycin Trough Rheumatoid Factor Complement C4 Miscellaneous Test Crossmatch 12/19/16 12/19/16 12/19/16 09:36 11:12 18:29 WBC RBC Hgb Hct MCV MCH MCHC RDW Plt Count Lymph % (Auto) [place] % (Auto) Lymph # [place] # Baso # Seg Neutrophils % Seg Neuts % (Manual) Lymphocytes % (Manual) Monocytes % (Manual) Eosinophils % (Manual) Basophils % (Manual) Nucleated RBC % Seg Neutrophils # Seg Neutrophils # Man Lymphocytes # (Manual) Monocytes # (Manual) Eosinophils # (Manual) Basophils # (Manual) PT INR Fibrinogen dRVVT Confirm Interp Factor V Activity POC ABG pH 7.503 H POC ABG pCO2 30.1 L POC ABG pO2 ABG pO2 ABG HCO3 ABG Base Excess ABG Hemoglobin Oxyhemoglobin Sodium Potassium Chloride Carbon Dioxide BUN Creatinine Glucose POC Glucose 138 H 156 H Lactic Acid Calcium Phosphorus Magnesium Direct Bilirubin AST ALT Alkaline Phosphatase Lactate Dehydrogenase Troponin T C-Reactive Protein Total Protein Albumin Prealbumin Triglycerides Cholesterol LDL Cholesterol Direct HDL Cholesterol Urine pH Urine WBC (Auto) Urine Creatinine Urine Total Protein Fluid Total Protein Vancomycin Trough Rheumatoid Factor Complement C4 Miscellaneous Test Crossmatch 12/20/16 12/20/16 12/20/16 00:03 06:17 07:07 WBC RBC Hgb Hct MCV MCH MCHC RDW Plt Count Lymph % (Auto) [place] % (Auto) Lymph # [place] # Baso # Seg Neutrophils % Seg Neuts % (Manual) Lymphocytes % (Manual) Monocytes % (Manual) Eosinophils % (Manual) Basophils % (Manual) Nucleated RBC % Seg Neutrophils # Seg Neutrophils # Man Lymphocytes # (Manual) Monocytes # (Manual) Eosinophils # (Manual) Basophils # (Manual) PT INR Fibrinogen dRVVT Confirm Interp Factor V Activity POC ABG pH POC ABG pCO2 POC ABG pO2 ABG pO2 ABG HCO3 ABG Base Excess ABG Hemoglobin Oxyhemoglobin Sodium Potassium Chloride 97.1 L Carbon Dioxide 20 L BUN 97 H Creatinine 1.8 H Glucose 153 H POC Glucose 152 H 175 H Lactic Acid Calcium Phosphorus Magnesium Direct Bilirubin AST ALT Alkaline Phosphatase Lactate Dehydrogenase Troponin T C-Reactive Protein Total Protein Albumin Prealbumin Triglycerides Cholesterol LDL Cholesterol Direct HDL Cholesterol Urine pH Urine WBC (Auto) Urine Creatinine Urine Total Protein Fluid Total Protein Vancomycin Trough Rheumatoid Factor Complement C4 Miscellaneous Test Crossmatch 12/20/16 12/20/16 12/20/16 12:00 17:42 23:53 WBC RBC Hgb Hct MCV MCH MCHC RDW Plt Count Lymph % (Auto) [place] % (Auto) Lymph # [place] # Baso # Seg Neutrophils % Seg Neuts % (Manual) Lymphocytes % (Manual) Monocytes % (Manual) Eosinophils % (Manual) Basophils % (Manual) Nucleated RBC % Seg Neutrophils # Seg Neutrophils # Man Lymphocytes # (Manual) Monocytes # (Manual) Eosinophils # (Manual) Basophils # (Manual) PT INR Fibrinogen dRVVT Confirm Interp Factor V Activity POC ABG pH POC ABG pCO2 POC ABG pO2 ABG pO2 ABG HCO3 ABG Base Excess ABG Hemoglobin Oxyhemoglobin Sodium Potassium Chloride Carbon Dioxide BUN Creatinine Glucose POC Glucose 141 H 156 H 132 H Lactic Acid Calcium Phosphorus Magnesium Direct Bilirubin AST ALT Alkaline Phosphatase Lactate Dehydrogenase Troponin T C-Reactive Protein Total Protein Albumin Prealbumin Triglycerides Cholesterol LDL Cholesterol Direct HDL Cholesterol Urine pH Urine WBC (Auto) Urine Creatinine Urine Total Protein Fluid Total Protein Vancomycin Trough Rheumatoid Factor Complement C4 Miscellaneous Test Crossmatch 12/21/16 12/21/16 12/21/16 05:49 08:50 12:19 WBC RBC Hgb Hct MCV MCH MCHC RDW Plt Count Lymph % (Auto) [place] % (Auto) Lymph # [place] # Baso # Seg Neutrophils % Seg Neuts % (Manual) Lymphocytes % (Manual) Monocytes % (Manual) Eosinophils % (Manual) Basophils % (Manual) Nucleated RBC % Seg Neutrophils # Seg Neutrophils # Man Lymphocytes # (Manual) Monocytes # (Manual) Eosinophils # (Manual) Basophils # (Manual) PT INR Fibrinogen dRVVT Confirm Interp Factor V Activity POC ABG pH POC ABG pCO2 POC ABG pO2 ABG pO2 ABG HCO3 ABG Base Excess ABG Hemoglobin Oxyhemoglobin Sodium Potassium 5.2 H D Chloride Carbon Dioxide BUN 63 H Creatinine Glucose 122 H POC Glucose 132 H 136 H Lactic Acid Calcium 8.3 L Phosphorus Magnesium Direct Bilirubin AST ALT Alkaline Phosphatase Lactate Dehydrogenase Troponin T C-Reactive Protein Total Protein Albumin Prealbumin Triglycerides Cholesterol LDL Cholesterol Direct HDL Cholesterol Urine pH Urine WBC (Auto) Urine Creatinine Urine Total Protein Fluid Total Protein Vancomycin Trough Rheumatoid Factor Complement C4 Miscellaneous Test Crossmatch 12/21/16 12/21/16 12/22/16 17:22 23:58 05:49 WBC RBC Hgb Hct MCV MCH MCHC RDW Plt Count Lymph % (Auto) [place] % (Auto) Lymph # [place] # Baso # Seg Neutrophils % Seg Neuts % (Manual) Lymphocytes % (Manual) Monocytes % (Manual) Eosinophils % (Manual) Basophils % (Manual) Nucleated RBC % Seg Neutrophils # Seg Neutrophils # Man Lymphocytes # (Manual) Monocytes # (Manual) Eosinophils # (Manual) Basophils # (Manual) PT INR Fibrinogen dRVVT Confirm Interp Factor V Activity POC ABG pH POC ABG pCO2 POC ABG pO2 ABG pO2 ABG HCO3 ABG Base Excess ABG Hemoglobin Oxyhemoglobin Sodium Potassium Chloride Carbon Dioxide BUN Creatinine Glucose POC Glucose 135 H 149 H 140 H Lactic Acid Calcium Phosphorus Magnesium Direct Bilirubin AST ALT Alkaline Phosphatase Lactate Dehydrogenase Troponin T C-Reactive Protein Total Protein Albumin Prealbumin Triglycerides Cholesterol LDL Cholesterol Direct HDL Cholesterol Urine pH Urine WBC (Auto) Urine Creatinine Urine Total Protein Fluid Total Protein Vancomycin Trough Rheumatoid Factor Complement C4 Miscellaneous Test Crossmatch 12/22/16 12/22/16 12/22/16 06:10 11:17 17:31 WBC RBC Hgb Hct MCV MCH MCHC RDW Plt Count Lymph % (Auto) [place] % (Auto) Lymph # [place] # Baso # Seg Neutrophils % Seg Neuts % (Manual) Lymphocytes % (Manual) Monocytes % (Manual) Eosinophils % (Manual) Basophils % (Manual) Nucleated RBC % Seg Neutrophils # Seg Neutrophils # Man Lymphocytes # (Manual) Monocytes # (Manual) Eosinophils # (Manual) Basophils # (Manual) PT INR Fibrinogen dRVVT Confirm Interp Factor V Activity POC ABG pH POC ABG pCO2 POC ABG pO2 ABG pO2 ABG HCO3 ABG Base Excess ABG Hemoglobin Oxyhemoglobin Sodium Potassium Chloride Carbon Dioxide BUN 76 H Creatinine 1.5 H Glucose 241 H POC Glucose 193 H 148 H Lactic Acid Calcium Phosphorus Magnesium Direct Bilirubin AST ALT Alkaline Phosphatase Lactate Dehydrogenase Troponin T C-Reactive Protein Total Protein Albumin Prealbumin Triglycerides Cholesterol LDL Cholesterol Direct HDL Cholesterol Urine pH Urine WBC (Auto) Urine Creatinine Urine Total Protein Fluid Total Protein Vancomycin Trough Rheumatoid Factor Complement C4 Miscellaneous Test Crossmatch 12/22/16 12/23/16 12/23/16 23:58 05:00 05:26 WBC RBC Hgb Hct MCV MCH MCHC RDW Plt Count Lymph % (Auto) [place] % (Auto) Lymph # [place] # Baso # Seg Neutrophils % Seg Neuts % (Manual) Lymphocytes % (Manual) Monocytes % (Manual) Eosinophils % (Manual) Basophils % (Manual) Nucleated RBC % Seg Neutrophils # Seg Neutrophils # Man Lymphocytes # (Manual) Monocytes # (Manual) Eosinophils # (Manual) Basophils # (Manual) PT INR Fibrinogen dRVVT Confirm Interp Factor V Activity POC ABG pH POC ABG pCO2 POC ABG pO2 ABG pO2 ABG HCO3 ABG Base Excess ABG Hemoglobin Oxyhemoglobin Sodium Potassium Chloride Carbon Dioxide BUN 49 H Creatinine Glucose 143 H POC Glucose 165 H 154 H Lactic Acid Calcium 8.2 L Phosphorus Magnesium 1.60 L Direct Bilirubin AST ALT Alkaline Phosphatase Lactate Dehydrogenase Troponin T C-Reactive Protein Total Protein Albumin Prealbumin Triglycerides Cholesterol LDL Cholesterol Direct HDL Cholesterol Urine pH Urine WBC (Auto) Urine Creatinine Urine Total Protein Fluid Total Protein Vancomycin Trough Rheumatoid Factor Complement C4 Miscellaneous Test Crossmatch 12/23/16 12/23/16 12/24/16 12:35 17:01 00:01 WBC RBC Hgb Hct MCV MCH MCHC RDW Plt Count Lymph % (Auto) [place] % (Auto) Lymph # [place] # Baso # Seg Neutrophils % Seg Neuts % (Manual) Lymphocytes % (Manual) Monocytes % (Manual) Eosinophils % (Manual) Basophils % (Manual) Nucleated RBC % Seg Neutrophils # Seg Neutrophils # Man Lymphocytes # (Manual) Monocytes # (Manual) Eosinophils # (Manual) Basophils # (Manual) PT INR Fibrinogen dRVVT Confirm Interp Factor V Activity POC ABG pH POC ABG pCO2 POC ABG pO2 ABG pO2 ABG HCO3 ABG Base Excess ABG Hemoglobin Oxyhemoglobin Sodium Potassium Chloride Carbon Dioxide BUN Creatinine Glucose POC Glucose 164 H 149 H 135 H Lactic Acid Calcium Phosphorus Magnesium Direct Bilirubin AST ALT Alkaline Phosphatase Lactate Dehydrogenase Troponin T C-Reactive Protein Total Protein Albumin Prealbumin Triglycerides Cholesterol LDL Cholesterol Direct HDL Cholesterol Urine pH Urine WBC (Auto) Urine Creatinine Urine Total Protein Fluid Total Protein Vancomycin Trough Rheumatoid Factor Complement C4 Miscellaneous Test Crossmatch 12/24/16 12/24/1617 05:41 07:01 11:38 WBC RBC Hgb Hct MCV MCH MCHC RDW Plt Count Lymph % (Auto) [place] % (Auto) Lymph # [place] # Baso # Seg Neutrophils % Seg Neuts % (Manual) Lymphocytes % (Manual) Monocytes % (Manual) Eosinophils % (Manual) Basophils % (Manual) Nucleated RBC % Seg Neutrophils # Seg Neutrophils # Man Lymphocytes # (Manual) Monocytes # (Manual) Eosinophils # (Manual) Basophils # (Manual) PT INR Fibrinogen dRVVT Confirm Interp Factor V Activity POC ABG pH POC ABG pCO2 POC ABG pO2 ABG pO2 ABG HCO3 ABG Base Excess ABG Hemoglobin Oxyhemoglobin Sodium Potassium Chloride Carbon Dioxide BUN 72 H Creatinine 1.3 H Glucose 130 H POC Glucose 132 H 156 H Lactic Acid Calcium 8.2 L Phosphorus Magnesium Direct Bilirubin AST ALT Alkaline Phosphatase Lactate Dehydrogenase Troponin T C-Reactive Protein Total Protein Albumin Prealbumin Triglycerides Cholesterol LDL Cholesterol Direct HDL Cholesterol Urine pH Urine WBC (Auto) Urine Creatinine Urine Total Protein Fluid Total Protein Vancomycin Trough Rheumatoid Factor Complement C4 Miscellaneous Test Crossmatch 12/24/16 12/25/16 12/25/16 17:53 00:23 05:45 WBC RBC Hgb Hct MCV MCH MCHC RDW Plt Count Lymph % (Auto) [place] % (Auto) Lymph # [place] # Baso # Seg Neutrophils % Seg Neuts % (Manual) Lymphocytes % (Manual) Monocytes % (Manual) Eosinophils % (Manual) Basophils % (Manual) Nucleated RBC % Seg Neutrophils # Seg Neutrophils # Man Lymphocytes # (Manual) Monocytes # (Manual) Eosinophils # (Manual) Basophils # (Manual) PT INR Fibrinogen dRVVT Confirm Interp Factor V Activity POC ABG pH POC ABG pCO2 POC ABG pO2 ABG pO2 ABG HCO3 ABG Base Excess ABG Hemoglobin Oxyhemoglobin Sodium 146 H Potassium Chloride Carbon Dioxide BUN 51 H Creatinine Glucose 109 H POC Glucose 169 H 117 H Lactic Acid Calcium Phosphorus Magnesium Direct Bilirubin AST ALT Alkaline Phosphatase Lactate Dehydrogenase Troponin T C-Reactive Protein Total Protein Albumin Prealbumin Triglycerides Cholesterol LDL Cholesterol Direct HDL Cholesterol Urine pH Urine WBC (Auto) Urine Creatinine Urine Total Protein Fluid Total Protein Vancomycin Trough Rheumatoid Factor Complement C4 Miscellaneous Test Crossmatch 12/25/16 12/25/16 12/25/16 06:43 11:29 17:14 WBC RBC Hgb Hct MCV MCH MCHC RDW Plt Count Lymph % (Auto) [place] % (Auto) Lymph # [place] # Baso # Seg Neutrophils % Seg Neuts % (Manual) Lymphocytes % (Manual) Monocytes % (Manual) Eosinophils % (Manual) Basophils % (Manual) Nucleated RBC % Seg Neutrophils # Seg Neutrophils # Man Lymphocytes # (Manual) Monocytes # (Manual) Eosinophils # (Manual) Basophils # (Manual) PT INR Fibrinogen dRVVT Confirm Interp Factor V Activity POC ABG pH POC ABG pCO2 POC ABG pO2 ABG pO2 ABG HCO3 ABG Base Excess ABG Hemoglobin Oxyhemoglobin Sodium Potassium Chloride Carbon Dioxide BUN Creatinine Glucose POC Glucose 117 H 128 H 120 H Lactic Acid Calcium Phosphorus Magnesium Direct Bilirubin AST ALT Alkaline Phosphatase Lactate Dehydrogenase Troponin T C-Reactive Protein Total Protein Albumin Prealbumin Triglycerides Cholesterol LDL Cholesterol Direct HDL Cholesterol Urine pH Urine WBC (Auto) Urine Creatinine Urine Total Protein Fluid Total Protein Vancomycin Trough Rheumatoid Factor Complement C4 Miscellaneous Test Crossmatch 12/25/16 12/26/16 12/26/16 23:54 05:40 05:50 WBC 16.2 H RBC 2.32 L Hgb 6.2 L Hct 20.1 L MCV MCH 27 L MCHC RDW 18.6 H Plt Count Lymph % (Auto) [place] % (Auto) Lymph # [place] # Baso # Seg Neutrophils % Seg Neuts % (Manual) Lymphocytes % (Manual) Monocytes % (Manual) Eosinophils % (Manual) Basophils % (Manual) Nucleated RBC % Seg Neutrophils # Seg Neutrophils # Man Lymphocytes # (Manual) Monocytes # (Manual) Eosinophils # (Manual) Basophils # (Manual) PT INR Fibrinogen dRVVT Confirm Interp Factor V Activity POC ABG pH POC ABG pCO2 POC ABG pO2 ABG pO2 ABG HCO3 ABG Base Excess ABG Hemoglobin Oxyhemoglobin Sodium Potassium Chloride Carbon Dioxide BUN Creatinine Glucose POC Glucose 126 H 132 H Lactic Acid Calcium Phosphorus Magnesium Direct Bilirubin AST ALT Alkaline Phosphatase Lactate Dehydrogenase Troponin T C-Reactive Protein Total Protein Albumin Prealbumin Triglycerides Cholesterol LDL Cholesterol Direct HDL Cholesterol Urine pH Urine WBC (Auto) Urine Creatinine Urine Total Protein Fluid Total Protein Vancomycin Trough Rheumatoid Factor Complement C4 Miscellaneous Test Crossmatch 12/26/16 12/26/16 12/26/16 05:50 12:17 12:33 WBC RBC Hgb Hct MCV MCH MCHC RDW Plt Count Lymph % (Auto) [place] % (Auto) Lymph # [place] # Baso # Seg Neutrophils % Seg Neuts % (Manual) Lymphocytes % (Manual) Monocytes % (Manual) Eosinophils % (Manual) Basophils % (Manual) Nucleated RBC % Seg Neutrophils # Seg Neutrophils # Man Lymphocytes # (Manual) Monocytes # (Manual) Eosinophils # (Manual) Basophils # (Manual) PT INR Fibrinogen dRVVT Confirm Interp Factor V Activity POC ABG pH POC ABG pCO2 POC ABG pO2 ABG pO2 ABG HCO3 ABG Base Excess ABG Hemoglobin Oxyhemoglobin Sodium Potassium Chloride Carbon Dioxide BUN 73 H Creatinine 1.3 H Glucose 113 H POC Glucose 117 H Lactic Acid Calcium Phosphorus Magnesium Direct Bilirubin AST ALT Alkaline Phosphatase Lactate Dehydrogenase Troponin T C-Reactive Protein Total Protein Albumin Prealbumin Triglycerides Cholesterol LDL Cholesterol Direct HDL Cholesterol Urine pH Urine WBC (Auto) Urine Creatinine Urine Total Protein Fluid Total Protein Vancomycin Trough Rheumatoid Factor Complement C4 Miscellaneous Test Crossmatch See Detail 12/26/16 12/26/16 12/27/16 20:00 23:21 05:00 WBC RBC Hgb 8.4 L Hct 26.3 L D MCV MCH MCHC RDW Plt Count Lymph % (Auto) [place] % (Auto) Lymph # [place] # Baso # Seg Neutrophils % Seg Neuts % (Manual) Lymphocytes % (Manual) Monocytes % (Manual) Eosinophils % (Manual) Basophils % (Manual) Nucleated RBC % Seg Neutrophils # Seg Neutrophils # Man Lymphocytes # (Manual) Monocytes # (Manual) Eosinophils # (Manual) Basophils # (Manual) PT INR Fibrinogen dRVVT Confirm Interp Factor V Activity POC ABG pH POC ABG pCO2 POC ABG pO2 ABG pO2 ABG HCO3 ABG Base Excess ABG Hemoglobin Oxyhemoglobin Sodium Potassium Chloride Carbon Dioxide BUN 85 H Creatinine 1.6 H Glucose 118 H POC Glucose 124 H Lactic Acid Calcium Phosphorus 4.80 H Magnesium Direct Bilirubin AST ALT Alkaline Phosphatase Lactate Dehydrogenase Troponin T C-Reactive Protein Total Protein Albumin Prealbumin Triglycerides Cholesterol LDL Cholesterol Direct HDL Cholesterol Urine pH Urine WBC (Auto) Urine Creatinine Urine Total Protein Fluid Total Protein Vancomycin Trough Rheumatoid Factor Complement C4 Miscellaneous Test Crossmatch 12/27/16 12/27/16 12/27/16 05:00 05:35 12:24 WBC RBC Hgb 7.6 L Hct 22.8 L MCV MCH MCHC RDW Plt Count Lymph % (Auto) [place] % (Auto) Lymph # [place] # Baso # Seg Neutrophils % Seg Neuts % (Manual) Lymphocytes % (Manual) Monocytes % (Manual) Eosinophils % (Manual) Basophils % (Manual) Nucleated RBC % Seg Neutrophils # Seg Neutrophils # Man Lymphocytes # (Manual) Monocytes # (Manual) Eosinophils # (Manual) Basophils # (Manual) PT INR Fibrinogen dRVVT Confirm Interp Factor V Activity POC ABG pH POC ABG pCO2 POC ABG pO2 ABG pO2 ABG HCO3 ABG Base Excess ABG Hemoglobin Oxyhemoglobin Sodium Potassium Chloride Carbon Dioxide BUN Creatinine Glucose POC Glucose 115 H 131 H Lactic Acid Calcium Phosphorus Magnesium Direct Bilirubin AST ALT Alkaline Phosphatase Lactate Dehydrogenase Troponin T C-Reactive Protein Total Protein Albumin Prealbumin Triglycerides Cholesterol LDL Cholesterol Direct HDL Cholesterol Urine pH Urine WBC (Auto) Urine Creatinine Urine Total Protein Fluid Total Protein Vancomycin Trough Rheumatoid Factor Complement C4 Miscellaneous Test Crossmatch 12/27/16 12/28/16 12/28/16 17:16 00:18 04:00 WBC RBC Hgb Hct MCV MCH MCHC RDW Plt Count Lymph % (Auto) [place] % (Auto) Lymph # [place] # Baso # Seg Neutrophils % Seg Neuts % (Manual) Lymphocytes % (Manual) Monocytes % (Manual) Eosinophils % (Manual) Basophils % (Manual) Nucleated RBC % Seg Neutrophils # Seg Neutrophils # Man Lymphocytes # (Manual) Monocytes # (Manual) Eosinophils # (Manual) Basophils # (Manual) PT INR Fibrinogen dRVVT Confirm Interp Factor V Activity POC ABG pH POC ABG pCO2 POC ABG pO2 ABG pO2 ABG HCO3 ABG Base Excess ABG Hemoglobin Oxyhemoglobin Sodium Potassium 3.5 L Chloride Carbon Dioxide BUN 57 H Creatinine Glucose 118 H POC Glucose 136 H 120 H Lactic Acid Calcium 8.3 L Phosphorus Magnesium Direct Bilirubin AST ALT Alkaline Phosphatase Lactate Dehydrogenase Troponin T C-Reactive Protein Total Protein Albumin Prealbumin Triglycerides Cholesterol LDL Cholesterol Direct HDL Cholesterol Urine pH Urine WBC (Auto) Urine Creatinine Urine Total Protein Fluid Total Protein Vancomycin Trough Rheumatoid Factor Complement C4 Miscellaneous Test Crossmatch 12/28/16 12/28/16 12/28/16 04:00 05:11 08:30 WBC 17.0 H RBC 2.58 L Hgb 7.1 L Hct 22.0 L MCV MCH MCHC RDW 17.6 H Plt Count Lymph % (Auto) 12.2 L [place] % (Auto) Lymph # [place] # 1.1 H Baso # Seg Neutrophils % 80.5 H Seg Neuts % (Manual) Lymphocytes % (Manual) Monocytes % (Manual) Eosinophils % (Manual) Basophils % (Manual) Nucleated RBC % Seg Neutrophils # 13.7 H Seg Neutrophils # Man Lymphocytes # (Manual) Monocytes # (Manual) Eosinophils # (Manual) Basophils # (Manual) PT 16.1 H INR 1.23 H Fibrinogen dRVVT Confirm Interp Factor V Activity POC ABG pH POC ABG pCO2 POC ABG pO2 ABG pO2 ABG HCO3 ABG Base Excess ABG Hemoglobin Oxyhemoglobin Sodium Potassium Chloride Carbon Dioxide BUN Creatinine Glucose POC Glucose 122 H Lactic Acid Calcium Phosphorus Magnesium Direct Bilirubin AST ALT Alkaline Phosphatase Lactate Dehydrogenase Troponin T C-Reactive Protein Total Protein Albumin Prealbumin Triglycerides Cholesterol LDL Cholesterol Direct HDL Cholesterol Urine pH Urine WBC (Auto) Urine Creatinine Urine Total Protein Fluid Total Protein Vancomycin Trough Rheumatoid Factor Complement C4 Miscellaneous Test Crossmatch Allied health notes reviewed: RT
--- NOTE | 2016-12-28 13:54 | Anesthesia Consultation ---
Anesthesia Consult and Med Hx Date of service: 12/28/16 - Cardiac Exam Cardiac Exam: RRR Anesthetic Concerns: HX AFIB - Pre-Operative Health Status ASA Pre-Surgery Classification: ASA4 Proposed Anesthetic Plan: General - Pre-Anesthesia Comment Pre-Anesthesia Comments: Ventilator. Fentanyl and TPN infusions. Acute Encephalopathy. Sepsis. Unable to assess Airway. - Pulmonary Hx Respiratory Symptoms: Yes (Acute Respiratory Failure, Vent via Trach ) - Cardiovascular System Hx Hypertension: Yes Hx Cardia Arrhythmia: Yes (Paroxsymal Afib ) Hx Pacemaker: No Hx Internal Defibrillator: No - Central Nervous System CVA: Yes (Acute ) - Endocrine Hx Renal Disease: Yes (Acute, Dialysis ) Hx Insulin Dependent Diabetes: Yes - Hematic Hx Anemia: Yes (Transfusions) - Additional Comments Anesthesia Medical History Comments: .
--- NOTE | 2016-12-28 13:54 | Anesthesia Day of Surgery ---
Anesthesia Day of Surgery - Day of Surgery Patient Examined: Yes Patient H&P Reviewed: Yes Patient is NPO: Yes Beta Blockers: Yes
[2016-12-28] MEDS ORDERED: VERSED ONE (17:50)
[2016-12-28] MEDS ORDERED: NACL 0.9% IR ONE (18:05)
[2016-12-28] MEDS ORDERED: ePHEDrine SULFATE ONE (18:29)
[2016-12-28] MEDS ORDERED: SUBLIMAZE ONE (18:36)
--- NOTE | 2016-12-28 18:55 | Progress Note ---
Assessment and Plan Assessment and plan: Patient is 46-year-old woman with a history of hypertension, diabetes, asthma, hyperlipidemia, chronic kidney disease and anxiety , who was brought in by family because, she couldn't get her words out, her face was also twisted, she was admitted for acute CVA and accelerated hypertension, she had a hx of poor adherence with her medications, and uncontrolled htn. Patient's SBP on admission was noted be greater than 260. TPA was started but this was discontinued after 5 minutes because her blood pressure became uncontrolled. The TPA was not initiated again because the patient was outside the TPA window. Status post cardiac arrest , 11/21/16 - Received CPR and was resuscitated. - Patient is on amiodarone Fever - resolved - Antibiotic discontinued today per ID - s/p R thoracentesis on 11/14, 240cc of serous fluid removed, cx of fluid was negative - Stool negative for C. difficile Severe Sepsis with septic shock - Patient has episode of fever and Surgical wound infection/gram-negative sepsis/candidemia/peritonitis - On TPN JUANITA, ESRD - on HD per nephrology Acute CVA with infarct - Neurology input appreciated - CT shows continued evolution of left MCA infarct with slight mass effect and edema, and there is no hemorrhage - PRINCE showed hyperdynamic with ef of 75%, neither clot nor septal defect seen - MRA Brain shows near complete occlusion of M2 and M3 of the left MCA - Repeat CT scan done on 09/11, shows stable findings - carotid doppler negative - Echo shows preserved systolic function but does show some left ventricular diastolic dysfunction - continue asa and statin Persistent vegetative state - This patient's needs placement at SNF - She was denied for LTACH Acute hypoxic respiratory failure requiring MV >96hrs - Status post tracheostomy, was on T piece Nosocomial acquired aspiration pneumonia/sepsis/UTI - patient has fever and communicated with patient's Nurse to call ID for revisit if the patient need antibiotics. Asthma/COPD exacerbation - ON trach, mechanical ventilation Status Post CVA Bilateral pleural effusion, s/p right thoracentesis A. fib with RVR Diabetes type 2. Continue sliding-scale regular insulin and Accu-Cheks. Hyperlipidemia. Continue statin Nutrition - TPN Anemia requiring multiple transfusions/acute blood loss - Hemoglobin this morning was 7.1 Sacral decubitus ulcer - Status post debridement Disposition. Very poor prognosis. The high probability of a clinically significant, sudden or life threatening deterioration of the [neurologic, CV] system(s) required my full and direct attention, intervention and personal management. The aggregate critical care time was [34] minutes. This time is in addition to time spent performing reported procedures but includes the following: [x] Data Review and interpretation [x] Patient assessment and monitoring of vital signs [x] Documentation [x] Medication orders and management History Interval history: Patient was seen and evaluated this morning, patient is in persistent vegetative state. Status post trach, dislodged PEG, fistulas on the skin around the stomach area. Sacral decubitus ulcer. Hospitalist Physical - Physical exam Narrative exam: Patient is on mechanical ventilation Vital signs as documented. Head exam is unremarkable. No scleral icterus . Neck is without jugular venous distension, thyromegaly, or carotid bruits. Lungs are clear to auscultation. Cardiac exam reveals regular rate and Rhythm. First and second heart sounds normal. No murmurs, rubs or gallops. Abdominal exam reveals abscess draining from the PEG site, and multiple fistulas around the stomach. Extremities are nonedematous and both femoral and pedal pulses are normal. Sacral decubitus ulcer. BUSINESS PLANNING DIRECTOR: comatose - Constitutional Vitals: Temp Pulse Resp BP Pulse Ox 99.4 F 112 H 25 H 115/70 96 12/28/16 16:00 12/28/16 17:45 12/28/16 17:45 12/28/16 18:28 12/28/16 17:45 General appearance: Present: no acute distress, well-nourished, obese Results - Labs CBC & Chem 7: 12/28/16 04:00 12/28/16 04:00 Labs: Laboratory Last Values WBC 17.0 K/mm3 (4.5-11.0) H 12/28/16 04:00 RBC 2.58 M/mm3 (3.65-5.03) L 12/28/16 04:00 Hgb 7.1 gm/dl (10.1-14.3) L 12/28/16 04:00 Hct 22.0 % (30.3-42.9) L 12/28/16 04:00 MCV 85 fl (79-97) 12/28/16 04:00 MCH 28 pg (28-32) 12/28/16 04:00 MCHC 32 % (30-34) 12/28/16 04:00 RDW 17.6 % (13.2-15.2) H 12/28/16 04:00 Plt Count 227 K/mm3 (140-440) 12/28/16 04:00 Lymph % (Auto) 12.2 % (13.4-35.0) L 12/28/16 04:00 [place] % (Auto) 6.3 % (0.0-7.3) 12/28/16 04:00 Eos % (Auto) 0.5 % (0.0-4.3) 12/28/16 04:00 Baso % (Auto) 0.5 % (0.0-1.8) 12/28/16 04:00 Lymph # 2.1 K/mm3 (1.2-5.4) 12/28/16 04:00 [place] # 1.1 K/mm3 (0.0-0.8) H 12/28/16 04:00 Eos # 0.1 K/mm3 (0.0-0.4) 12/28/16 04:00 Baso # 0.1 K/mm3 (0.0-0.1) 12/28/16 04:00 Add Manual Diff Complete 12/19/16 05:02 Total Counted 100 12/19/16 05:02 Seg Neutrophils % 80.5 % (40.0-70.0) H 12/28/16 04:00 Seg Neuts % (Manual) 64.0 % (40.0-70.0) 12/19/16 05:02 Band Neutrophils % 15.0 % 12/19/16 05:02 Lymphocytes % (Manual) 13.0 % (13.4-35.0) L 12/19/16 05:02 Reactive Lymphs % (Man) 0 % 12/19/16 05:02 Monocytes % (Manual) 7.0 % (0.0-7.3) 12/19/16 05:02 Eosinophils % (Manual) 0 % (0.0-4.3) 12/19/16 05:02 Basophils % (Manual) 1.0 % (0.0-1.8) 12/19/16 05:02 Metamyelocytes % 0 % 12/19/16 05:02 Myelocytes % 0 % 12/19/16 05:02 Promyelocytes % 0 % 12/19/16 05:02 Blast Cells % 0 % 12/19/16 05:02 Nucleated RBC % 1.0 % (0.0-0.9) H 12/19/16 05:02 Seg Neutrophils # 13.7 K/mm3 (1.8-7.7) H 12/28/16 04:00 Seg Neutrophils # Man 12.9 K/mm3 (1.8-7.7) H 12/19/16 05:02 Band Neutrophils # 3.0 K/mm3 12/19/16 05:02 Lymphocytes # (Manual) 2.6 K/mm3 (1.2-5.4) 12/19/16 05:02 Abs React Lymphs (Man) 0.0 K/mm3 12/19/16 05:02 Monocytes # (Manual) 1.4 K/mm3 (0.0-0.8) H 12/19/16 05:02 Eosinophils # (Manual) 0.0 K/mm3 (0.0-0.4) 12/19/16 05:02 Basophils # (Manual) 0.2 K/mm3 (0.0-0.1) H 12/19/16 05:02 Metamyelocytes # 0.0 K/mm3 12/19/16 05:02 Myelocytes # 0.0 K/mm3 12/19/16 05:02 Promyelocytes # 0.0 K/mm3 12/19/16 05:02 Blast Cells # 0.0 K/mm3 12/19/16 05:02 Pathologist Review 09/13/16 04:00 WBC Morphology Not Reportable 12/19/16 05:02 Hypersegmented Neuts Not Reportable 12/19/16 05:02 Hyposegmented Neuts Not Reportable 12/19/16 05:02 Hypogranular Neuts Not Reportable 12/19/16 05:02 Smudge Cells Not Reportable 12/19/16 05:02 Toxic Granulation Not Reportable 12/19/16 05:02 Toxic Vacuolation Not Reportable 12/19/16 05:02 Dohle Bodies Not Reportable 12/19/16 05:02 Pelger-Huet Anomaly Not Reportable 12/19/16 05:02 Jasmina Rods Not Reportable 12/19/16 05:02 Platelet Estimate Consistent w auto 12/19/16 05:02 Clumped Platelets Not Reportable 12/19/16 05:02 Plt Clumps, EDTA Not Reportable 12/19/16 05:02 Large Platelets Not Reportable 12/19/16 05:02 Giant Platelets Not Reportable 12/19/16 05:02 Platelet Satelliting Not Reportable 12/19/16 05:02 Plt Morphology Comment Not Reportable 12/19/16 05:02 RBC Morphology Not Reportable 12/19/16 05:02 Dimorphic RBCs Not Reportable 12/19/16 05:02 Polychromasia Not Reportable 12/19/16 05:02 Hypochromasia Not Reportable 12/19/16 05:02 Poikilocytosis Not Reportable 12/19/16 05:02 Anisocytosis Not Reportable 12/19/16 05:02 Microcytosis Not Reportable 12/19/16 05:02 Macrocytosis Not Reportable 12/19/16 05:02 Spherocytes Not Reportable 12/19/16 05:02 Pappenheimer Bodies Not Reportable 12/19/16 05:02 Sickle Cells Not Reportable 12/19/16 05:02 Target Cells Few 12/19/16 05:02 Tear Drop Cells Not Reportable 12/19/16 05:02 Ovalocytes Not Reportable 12/19/16 05:02 Stomatocytes Rare 12/03/16 04:00 Helmet Cells Not Reportable 12/19/16 05:02 [place] Bodies Not Reportable 12/19/16 05:02 [place] Rings Not Reportable 12/19/16 05:02 [place] Cells Not Reportable 12/19/16 05:02 Bite Cells Not Reportable 12/19/16 05:02 Crenated Cell Not Reportable 12/19/16 05:02 Elliptocytes Not Reportable 12/19/16 05:02 Acanthocytes (Spur) Not Reportable 12/19/16 05:02 Rouleaux Not Reportable 12/19/16 05:02 Hemoglobin C Crystals Not Reportable 12/19/16 05:02 Schistocytes Not Reportable 12/19/16 05:02 Malaria parasites Not Reportable 12/19/16 05:02 ESR > 140.0 mm/Hr (0-20) 09/08/16 11:48 Jun Bodies Not Reportable 12/19/16 05:02 Hem Pathologist Commnt No 12/19/16 05:02 PT 16.1 Sec. (12.2-14.9) H 12/28/16 08:30 INR 1.23 (0.87-1.13) H 12/28/16 08:30 APTT 33.0 Sec. (24.2-36.6) 10/09/16 03:45 Thrombin Time 16.8 Sec. (15.1-19.6) 09/03/16 00:10 Fibrinogen 750 mg/dl (211-480) H 09/08/16 11:48 Lupus Anticoagulant see below 09/12/16 09:59 LA PTT Baseline See scanned report 09/12/16 09:59 dRVVT Confirm Interp Positive (Negative) H 09/12/16 09:59 dRVVT Screen 50:50 See scanned report 09/12/16 09:59 dRVVT Mix Interpret See scanned report 09/12/16 09:59 Protein C Antigen 122 % (70-140) 09/08/16 15:35 Free Protein S 97 % normal (50-147) 09/08/16 15:35 Total Protein S 109 % (70-140) 09/08/16 15:35 Antithrombin III Ag 100 % (80-120) 09/08/16 15:35 Heparin Anti-Xa, Unfract Negative (Negative) 09/29/16 13:35 Factor V Activity 182 % (65-150) H 09/08/16 15:35 POC ABG pH 7.503 (7.35-7.45) H 12/19/16 09:36 ABG pH 7.450 pH Units (7.350-7.450) 12/05/16 Unknown POC ABG pCO2 30.1 (35-45) L 12/19/16 09:36 ABG pCO2 29.6 mm Hg 12/05/16 Unknown POC ABG pO2 85 (80-105) 12/19/16 09:36 ABG pO2 75.2 mm Hg (80.0-90.0) L 12/05/16 Unknown POC ABG HCO3 23.6 12/19/16 09:36 ABG HCO3 20.1 mmol/L (20.0-26.0) 12/05/16 Unknown POC ABG Total CO2 25 12/19/16 09:36 POC ABG O2 Sat 97 12/19/16 09:36 ABG O2 Saturation 96.8 % (95.0-99.0) 12/05/16 Unknown ABG O2 Content 9.9 (0.0-44) 12/05/16 Unknown POC ABG Base Excess 1 12/19/16 09:36 ABG Base Excess -3.4 mmol/L (-2.0-3.0) L 12/05/16 Unknown ABG Hemoglobin 7.4 gm/dl (12.0-16.0) L 12/05/16 Unknown ABG Carboxyhemoglobin 1.8 % (0.0-5.0) 12/05/16 Unknown ABG Methemoglobin 0.6 % (0.0-1.5) 12/05/16 Unknown Oxyhemoglobin 94.5 % (95.0-99.0) L 12/05/16 Unknown FiO2 28 % 12/19/16 09:36 Sodium 140 mmol/L (137-145) 12/28/16 04:00 Potassium 3.5 mmol/L (3.6-5.0) L 12/28/16 04:00 Chloride 99.8 mmol/L (98-107) 12/28/16 04:00 Carbon Dioxide 25 mmol/L (22-30) 12/28/16 04:00 Anion Gap 19 mmol/L 12/28/16 04:00 BUN 57 mg/dL (7-17) H 12/28/16 04:00 Creatinine 1.2 mg/dL (0.7-1.2) 12/28/16 04:00 Estimated GFR 59 ml/min 12/28/16 04:00 BUN/Creatinine Ratio 48 % 12/28/16 04:00 Glucose 118 mg/dL (65-100) H 12/28/16 04:00 POC Glucose 122 (70-105) H 12/28/16 05:11 Osmolality 351 Mosm/kg 09/16/16 11:47 Lactic Acid 4.50 mmol/L (0.7-2.0) H* 09/28/16 07:25 Calcium 8.3 mg/dL (8.4-10.2) L 12/28/16 04:00 Phosphorus 3.20 mg/dL (2.5-4.5) D 12/28/16 04:00 Magnesium 1.80 mg/dL (1.7-2.3) 12/28/16 04:00 Total Bilirubin 0.90 mg/dL (0.1-1.2) 12/18/16 05:00 Direct Bilirubin 0.3 mg/dL (0-0.2) H 10/10/16 05:00 Indirect Bilirubin 0.1 mg/dL 10/10/16 05:00 AST 34 units/L (5-40) 12/18/16 05:00 ALT 42 units/L (7-56) 12/18/16 05:00 Alkaline Phosphatase 257 units/L (35-129) H 12/18/16 05:00 Ammonia 27.0 umol/L (25-60) 09/07/16 08:37 Lactate Dehydrogenase 196 units/L (91-180) H 11/11/16 06:59 Total Creatine Kinase 121 units/L (30-135) 09/29/16 20:12 CK-MB (CK-2) < 1.0 ng/mL (0.0-4.0) 09/29/16 20:12 CK-MB (CK-2) Rel Index 0.8 (0-4) 09/29/16 20:12 Troponin T 0.204 ng/mL (0.00-0.029) H* 09/29/16 20:12 C-Reactive Protein 19.30 mg/dL (0.00-1.30) H 12/05/16 05:00 Total Protein 5.9 g/dL (6.3-8.2) L 12/18/16 05:00 Albumin 1.8 g/dL (3.9-5) L 12/18/16 05:00 Albumin/Globulin Ratio 0.4 % 12/18/16 05:00 Prealbumin 0.180 g/L (0.200-0.400) L 11/06/16 06:25 Triglycerides 137 mg/dL (2-149) 09/29/16 20:12 Cholesterol 31 mg/dL (50-199) L 09/29/16 20:12 LDL Cholesterol Direct 4 mg/dL (50-130) L 09/29/16 20:12 HDL Cholesterol 3 mg/dL (40-59) L 09/29/16 20:12 Cholesterol/HDL Ratio 10.33 % 09/29/16 20:12 Angiotensin Convert Enz See scanned report 09/08/16 11:48 Renin 0.99 ng/mL/h (0.25-5.82) 10/07/16 10:56 Aldosterone <1 ng/dL () 10/07/16 10:56 Aldosterone/Renin Dir see below 10/07/16 10:56 Serotonin Release Assay See scanned report 09/29/16 13:35 TSH 1.010 mlU/mL (0.270-4.200) 09/07/16 08:37 HCG, Qual Negative (Negative) 09/03/16 00:10 Urine Color Yellow (Yellow) 11/05/16 13:09 Urine Turbidity Clear (Clear) 11/05/16 13:09 Urine pH 9.0 (5.0-7.0) H 11/05/16 13:09 Ur Specific [place] 1.011 (1.003-1.030) 11/05/16 13:09 Urine Protein 100 mg/dl mg/dL (Negative) 11/05/16 13:09 Urine Glucose (UA) Neg mg/dL (Negative) 11/05/16 13:09 Urine Ketones Neg mg/dL (Negative) 11/05/16 13:09 Urine Blood Neg (Negative) 11/05/16 13:09 Urine Nitrite Neg (Negative) 11/05/16 13:09 Urine Bilirubin Neg (Negative) 11/05/16 13:09 Urine Urobilinogen < 2.0 mg/dL (<2.0) 11/05/16 13:09 Ur Leukocyte Esterase Neg (Negative) 11/05/16 13:09 Urine WBC (Auto) 4.0 /HPF (0.0-6.0) 11/05/16 13:09 Urine RBC (Auto) 1.0 /HPF (0.0-6.0) 11/05/16 13:09 U Epithel Cells (Auto) 1.0 /HPF (0-13.0) 10/07/16 18:30 Urine Bacteria (Auto) 4+ /HPF (Negative) 11/05/16 13:09 Urine WBC Clumps 2+ /HPF 09/07/16 02:47 Hyaline Casts 4 /LPF 09/07/16 02:47 Urine Mucus Few /HPF 10/07/16 18:30 Urine Yeast (Budding) 3+ /HPF 10/07/16 18:30 Urine Eosinophils None seen (None Seen) 09/07/16 16:00 Urine Total Volume 950 11/12/16 10:18 Urine Creatinine 19.7 mg/dL (0.1-20.0) 11/12/16 10:18 Height (in) 65.0 inches 11/12/16 10:18 Weight (lb) 181.0 lbs 11/12/16 10:18 Creatinine Clearance 5 11/12/16 10:18 Urine Sodium 36 mEq/L 09/16/16 19:19 Urine Total Protein 16 mg/dL (5-11.8) H 09/16/16 19:19 Fluid Total Protein < 3.0 (15.0-45.0) L 11/10/16 14:20 Fluid LDH 123 11/10/16 14:20 Vancomycin Trough 2.3 ug/mL (5.0-20.0) L 09/21/16 13:00 Random Vancomycin 16.5 ug/mL (0-40.0) 11/28/16 09:45 Urine Opiates Screen Presumptive negative 09/03/16 15:11 Urine Methadone Screen Presumptive positive 09/03/16 15:11 Ur Barbiturates Screen Presumptive positive 09/03/16 15:11 Ur Phencyclidine Scrn Presumptive negative 09/03/16 15:11 Ur Amphetamines Screen Presumptive negative 09/03/16 15:11 U Benzodiazepines Scrn Presumptive negative 09/03/16 15:11 Urine Cocaine Screen Presumptive negative 09/03/16 15:11 U Marijuana (THC) Screen Presumptive positive 09/03/16 15:11 Drugs of Abuse Note Disclamer 09/03/16 15:11 Rheumatoid Factor 24 IU/ml (0-13) H 09/08/16 11:48 SAHIL Screen Negative (Negative) 09/07/16 09:20 Proteinase 3 (PR3) Ab <1.0 AI (<1.0) 09/07/16 09:20 Myeloperoxidase Ab <1.0 AI (<1.0) 09/07/16 09:20 Sjogren's Antibody <1.0 AI (<1.0) 09/08/16 15:35 Scl-70 Scleroderma Ab <1.0 AI (<1.0) 09/08/16 15:35 Centromere B Antibody <1.0 AI (<1.0) 09/08/16 12:02 Heparin-induced Plt Ab Negative (Negative) 09/29/16 13:35 UF Heparin High Dose 11 % Release 09/29/16 13:35 SUDHIR UFH Low Dose 0.1 6 % Release 09/29/16 13:35 SUDHIR UFH Low Dose 0.5 8 % Release 09/29/16 13:35 Cardiolipid IgG Ab <14 GPL (<=14) 09/12/16 09:59 Cardiolipid IgA Ab <11 APL (<=11) 09/12/16 09:59 Cardiolipid IgM Ab <12 MPL (<=12) 09/12/16 09:59 Complement C3 148 mg/dL (90-180) 09/07/16 09:20 Complement C4 58 mg/dL (16-47) H 09/07/16 09:20 RPR Nonreactive (Nonreactive) 09/08/16 11:48 Hepatitis A IgM Ab Non-reactive (NonReactive) 09/24/16 14:40 Hep Bs Antigen Non-reactive (Negative) 09/24/16 14:40 Hep B Core IgM Ab Non-reactive (NonReactive) 09/24/16 14:40 Hepatitis C Antibody Non-reactive (NonReactive) 09/24/16 14:40 HIV 1&2 Antibody Rapid Non react (Non React) 09/08/16 11:48 HIV P24 Antigen Non react (Non React) 09/08/16 11:48 Miscellaneous Test Flexitest 1 H 11/05/16 13:25 Blood Type A POSITIVE 12/26/16 12:33 Antibody Screen Negative 12/26/16 12:33 DELORIS Antibody Screen Negative 11/24/16 11:20 Crossmatch See Detail 12/26/16 12:33
--- NOTE | 2016-12-28 19:05 | Procedure Note ---
Date of procedure: 12/28/16 Pre-op diagnosis: Sacral decubitus, unstageable Post-op diagnosis: same (Stage 4, 7 X 7 cm) Procedure: Debridement of sacral decubitus, stage 4 Description of procedure: Procedure was performed on the pt's bed. General anesthesia was administered via her tracheostomy. She was repositioned with her left side down. Her right buttock was taped up to better expose the decubitus ulcer. Buttocks were prepped and draped. Necrotic skin, SQ tissue, muscle and a portion of the coccyx were sharply excised with scissors. A small amount of oozing was controlled with the Bovie. The wound was irrigated. The final dimensions of the wound were 7 X 7 X 3.5 cm. The wound was packed open with a dilute, Betadine moistened Kerlix roll followed by an ABD and Medipore tape. Pt tolerated the procedure well. She was take to PACU in stable condition. Anesthesia: GETA Surgeon: CAMRON ARIAS Estimated blood loss: 50-100ml Pathology: list (fragment of coccyx) Specimen disposition: to lab Condition: stable Disposition: PACU
[2016-12-28] MEDS ORDERED: TPN ADULT IV SCH (20:00)
[2016-12-28] MEDS ORDERED: INTRALIPID 20% 250 ML IV SCH (20:00)
[2016-12-29] MEDS: LOPRESSOR PO SCH ×4 (00:17→18:23)
[2016-12-29] MEDS: HumuLIN R SUB-Q SCH ×4 (00:17→18:24)
[2016-12-29] MEDS: DUONEB *Not for PRN Use IH SCH ×4 (01:56→19:48)
[2016-12-29 05:52] LABS: Calcium 8.9 mg/dL (8.4-10.2)
[2016-12-29] MEDS: APRESOLINE PO SCH ×3 (05:57→22:59)
[2016-12-29] MEDS: PROTONIX FEEDTUBE SCH ×2 (07:10→09:13)
[2016-12-29] MEDS ORDERED: DILAUDID IV PRN (08:14)
--- NOTE | 2016-12-29 08:40 | Progress Note ---
Assessment and Plan - Patient Problems (1) JUANITA (acute kidney injury) Current Visit: Yes Status: Acute Plan to address problem: Multiple comorbid conditions-Suggest supportive care as clinical outcome is poor. Scr-1.6 today.Monitor urine output. Hold off HD for few days and check for renal recovery. Pt was reported to have decubitus ulcer-had surgery yesterday (2) Acute CVA (cerebrovascular accident) Current Visit: Yes Status: Acute (3) Acute respiratory failure with hypoxia Current Visit: Yes Status: Acute (4) Atrial fibrillation Current Visit: Yes Status: Chronic Qualifiers: Atrial fibrillation type: A (5) Type 2 diabetes mellitus Current Visit: Yes Status: Chronic Qualifiers: Diabetes mellitus complication status: D Diabetes mellitus complication detail: D Diabetic retinopathy severity: D Proliferative retinopathy type: P Diabetes mellitus macular edema: D Diabetes mellitus terminologist insulin use : D Laterality: L Chronic kidney disease stage: C (6) Anemia Current Visit: No Status: Acute Qualifiers: Anemia type: unspecified type Iron deficiency anemia type: I Vitamin B12 deficiency anemia type: V Folate deficiency anemia type: F Bone marrow failure anemia type: B Hemolytic anemia type: H Other causes of anemia: O Chronic kidney disease stage: C Qualified Code(s): D64.9 - Anemia, unspecified (7) HTN (hypertension) Current Visit: Yes Status: Acute Qualifiers: Hypertension type: H Subjective Date of service: 12/29/16 Principal diagnosis: Acute resp failure on MVS; S/P Acute CVA; Acute Encephalopathy; JUANITA Interval history: chart was reviewed, discussed with pt's nurse. on ventilator via trach. S/P debridement of decubitus, surgery notes reviewed Objective - Vital Signs Vital signs: Vital Signs - 12hr 12/28/16 12/28/16 12/28/16 20:45 21:00 21:15 Temperature Pulse Rate 108 H 110 H 110 H Pulse Rate [ Anterior Bilateral Throughout] Pulse Rate [ From Monitor] Respiratory 23 24 23 Rate Respiratory Rate [Anterior Bilateral Throughout] Blood Pressure 98/50 104/54 101/55 O2 Sat by Pulse 93 95 95 Oximetry O2 Sat by Pulse Oximetry [ Assessment] 12/28/16 12/28/16 12/28/16 21:30 21:45 22:00 Temperature Pulse Rate 108 H 107 H 106 H Pulse Rate [ Anterior Bilateral Throughout] Pulse Rate [ From Monitor] Respiratory 22 24 23 Rate Respiratory Rate [Anterior Bilateral Throughout] Blood Pressure 96/55 87/50 101/60 O2 Sat by Pulse 96 96 97 Oximetry O2 Sat by Pulse Oximetry [ Assessment] 12/28/16 12/28/16 12/28/16 22:07 22:15 22:26 Temperature Pulse Rate 103 H 107 H 110 H Pulse Rate [ Anterior Bilateral Throughout] Pulse Rate [ From Monitor] Respiratory 21 26 H Rate Respiratory Rate [Anterior Bilateral Throughout] Blood Pressure 101/60 108/60 101/55 O2 Sat by Pulse 98 98 Oximetry O2 Sat by Pulse Oximetry [ Assessment] 12/28/16 12/28/16 12/28/16 22:30 22:45 23:00 Temperature Pulse Rate 107 H 106 H 108 H Pulse Rate [ Anterior Bilateral Throughout] Pulse Rate [ From Monitor] Respiratory 24 25 H 23 Rate Respiratory Rate [Anterior Bilateral Throughout] Blood Pressure 102/60 105/62 113/66 O2 Sat by Pulse 96 96 96 Oximetry O2 Sat by Pulse Oximetry [ Assessment] 12/28/16 12/28/16 12/28/16 23:15 23:30 23:45 Temperature Pulse Rate 108 H 107 H 109 H Pulse Rate [ Anterior Bilateral Throughout] Pulse Rate [ From Monitor] Respiratory 26 H 25 H 25 H Rate Respiratory Rate [Anterior Bilateral Throughout] Blood Pressure 116/67 118/68 124/67 O2 Sat by Pulse 96 96 97 Oximetry O2 Sat by Pulse Oximetry [ Assessment] 12/29/16 12/29/16 12/29/16 00:00 00:05 00:15 Temperature 98.9 F Pulse Rate 106 H 107 H 108 H Pulse Rate [ Anterior Bilateral Throughout] Pulse Rate [ 104 H From Monitor] Respiratory 25 H 22 Rate Respiratory Rate [Anterior Bilateral Throughout] Blood Pressure 103/56 103/56 108/62 O2 Sat by Pulse 96 96 96 Oximetry O2 Sat by Pulse Oximetry [ Assessment] 12/29/16 12/29/16 12/29/16 00:17 00:30 00:45 Temperature Pulse Rate 107 H 106 H 113 H Pulse Rate [ Anterior Bilateral Throughout] Pulse Rate [ From Monitor] Respiratory 26 H 23 Rate Respiratory Rate [Anterior Bilateral Throughout] Blood Pressure 108/62 109/62 128/75 O2 Sat by Pulse 97 97 Oximetry O2 Sat by Pulse Oximetry [ Assessment] 12/29/16 12/29/16 12/29/16 01:00 01:15 01:30 Temperature Pulse Rate 109 H 112 H 109 H Pulse Rate [ Anterior Bilateral Throughout] Pulse Rate [ From Monitor] Respiratory 26 H 28 H 26 H Rate Respiratory Rate [Anterior Bilateral Throughout] Blood Pressure 109/55 115/59 110/60 O2 Sat by Pulse 97 96 96 Oximetry O2 Sat by Pulse Oximetry [ Assessment] 12/29/16 12/29/16 12/29/16 01:45 01:56 02:00 Temperature Pulse Rate 109 H 112 H Pulse Rate [ 110 H Anterior Bilateral Throughout] Pulse Rate [ From Monitor] Respiratory 27 H 20 Rate Respiratory 15 Rate [Anterior Bilateral Throughout] Blood Pressure 117/65 116/67 O2 Sat by Pulse 96 98 Oximetry O2 Sat by Pulse Oximetry [ Assessment] 12/29/16 12/29/16 12/29/16 02:04 02:15 02:30 Temperature Pulse Rate 113 H 111 H Pulse Rate [ 112 H Anterior Bilateral Throughout] Pulse Rate [ From Monitor] Respiratory 27 H 27 H Rate Respiratory 16 Rate [Anterior Bilateral Throughout] Blood Pressure 99/56 105/58 O2 Sat by Pulse 95 95 Oximetry O2 Sat by Pulse Oximetry [ Assessment] 12/29/16 12/29/16 12/29/16 02:45 03:00 03:15 Temperature Pulse Rate 111 H 115 H Pulse Rate [ Anterior Bilateral Throughout] Pulse Rate [ From Monitor] Respiratory 26 H 25 H Rate Respiratory Rate [Anterior Bilateral Throughout] Blood Pressure 105/57 116/65 116/65 O2 Sat by Pulse 96 97 99 Oximetry O2 Sat by Pulse Oximetry [ Assessment] 12/29/16 12/29/16 12/29/16 03:30 03:45 04:00 Temperature 98.8 F Pulse Rate 130 H 118 H 115 H Pulse Rate [ Anterior Bilateral Throughout] Pulse Rate [ 108 H From Monitor] Respiratory 28 H 27 H 22 Rate Respiratory Rate [Anterior Bilateral Throughout] Blood Pressure 141/84 115/66 121/73 O2 Sat by Pulse 100 99 100 Oximetry O2 Sat by Pulse Oximetry [ Assessment] 12/29/16 12/29/16 12/29/16 04:15 04:25 04:30 Temperature Pulse Rate 109 H 110 H 109 H Pulse Rate [ Anterior Bilateral Throughout] Pulse Rate [ From Monitor] Respiratory 25 H 26 H Rate Respiratory Rate [Anterior Bilateral Throughout] Blood Pressure 96/58 102/67 102/67 O2 Sat by Pulse 94 96 96 Oximetry O2 Sat by Pulse Oximetry [ Assessment] 12/29/16 12/29/16 12/29/16 04:45 05:00 05:15 Temperature Pulse Rate 110 H 112 H 110 H Pulse Rate [ Anterior Bilateral Throughout] Pulse Rate [ From Monitor] Respiratory 25 H 27 H 26 H Rate Respiratory Rate [Anterior Bilateral Throughout] Blood Pressure 110/62 116/65 116/70 O2 Sat by Pulse 95 95 97 Oximetry O2 Sat by Pulse Oximetry [ Assessment] 12/29/16 12/29/16 12/29/16 05:30 05:45 05:57 Temperature Pulse Rate 109 H 116 H 102 H Pulse Rate [ Anterior Bilateral Throughout] Pulse Rate [ From Monitor] Respiratory 27 H 21 Rate Respiratory Rate [Anterior Bilateral Throughout] Blood Pressure 113/65 113/72 113/72 O2 Sat by Pulse 97 98 Oximetry O2 Sat by Pulse Oximetry [ Assessment] 12/29/16 12/29/16 12/29/16 06:00 06:15 06:30 Temperature Pulse Rate 109 H 108 H 110 H Pulse Rate [ Anterior Bilateral Throughout] Pulse Rate [ From Monitor] Respiratory 26 H 29 H 29 H Rate Respiratory Rate [Anterior Bilateral Throughout] Blood Pressure 120/68 111/64 117/68 O2 Sat by Pulse 97 98 98 Oximetry O2 Sat by Pulse Oximetry [ Assessment] 12/29/16 12/29/16 12/29/16 06:45 07:00 07:14 Temperature Pulse Rate 110 H 107 H 109 H Pulse Rate [ Anterior Bilateral Throughout] Pulse Rate [ From Monitor] Respiratory 27 H 26 H Rate Respiratory Rate [Anterior Bilateral Throughout] Blood Pressure 120/69 110/67 107/68 O2 Sat by Pulse 98 97 97 Oximetry O2 Sat by Pulse Oximetry [ Assessment] 12/29/16 12/29/16 12/29/16 07:15 07:19 07:24 Temperature Pulse Rate 109 H Pulse Rate [ 113 H Anterior Bilateral Throughout] Pulse Rate [ From Monitor] Respiratory 28 H Rate Respiratory 14 Rate [Anterior Bilateral Throughout] Blood Pressure 107/68 O2 Sat by Pulse 98 Oximetry O2 Sat by Pulse 97 Oximetry [ Assessment] 12/29/16 12/29/16 12/29/16 07:30 07:45 07:50 Temperature 98.5 F Pulse Rate 111 H 112 H Pulse Rate [ Anterior Bilateral Throughout] Pulse Rate [ From Monitor] Respiratory 15 29 H Rate Respiratory Rate [Anterior Bilateral Throughout] Blood Pressure 114/60 116/70 O2 Sat by Pulse 94 97 Oximetry O2 Sat by Pulse Oximetry [ Assessment] 12/29/16 12/29/16 08:00 08:15 Temperature Pulse Rate 117 H 113 H Pulse Rate [ Anterior Bilateral Throughout] Pulse Rate [ From Monitor] Respiratory 28 H 23 Rate Respiratory Rate [Anterior Bilateral Throughout] Blood Pressure 109/49 122/77 O2 Sat by Pulse 94 98 Oximetry O2 Sat by Pulse Oximetry [ Assessment] - General Appearance General appearance: sedated on ventilator EENT: mucous membranes dry Neck: no JVD Respiratory: Present: Decreased Breath Sounds Cardiology: regular, tachycardia Gastrointestinal: normoactive bowel sounds Neurologic: obtunded - Lab 12/29/16 23:15 12/29/16 05:15 Most recent lab results ABG pH 7.450 pH Units (7.350-7.450) 12/05/16 Unknown ABG pCO2 29.6 mm Hg 12/05/16 Unknown ABG pO2 75.2 mm Hg (80.0-90.0) L 12/05/16 Unknown ABG HCO3 20.1 mmol/L (20.0-26.0) 12/05/16 Unknown ABG O2 Saturation 96.8 % (95.0-99.0) 12/05/16 Unknown Calcium 8.9 mg/dL (8.4-10.2) 12/29/16 05:15 Phosphorus 3.20 mg/dL (2.5-4.5) D 12/28/16 04:00 Magnesium 1.80 mg/dL (1.7-2.3) 12/28/16 04:00 Urine Creatinine 19.7 mg/dL (0.1-20.0) 11/12/16 10:18 Urine Sodium 36 mEq/L 09/16/16 19:19 Urine Total Protein 16 mg/dL (5-11.8) H 09/16/16 19:19
[2016-12-29] MEDS: ROBINUL PO SCH ×2 (09:17→23:00)
[2016-12-29] MEDS: CORDARONE PO SCH ×2 (09:18→22:59)
[2016-12-29] MEDS: DILAUDID IV PRN ×2 (09:18→20:01)
[2016-12-29] MEDS: NORVASC PO SCH (09:19)
[2016-12-29] MEDS: HEPARIN SUB-Q SCH ×2 (09:19→23:00)
[2016-12-29] MEDS: DAKIN'S HALF STRENGTH TP SCH ×2 (10:01→23:30)
--- NOTE | 2016-12-29 10:46 | Progress Note ---
Assessment and Plan Acute Hypoxemic Respiratory Failure (now with exacerbation and back on MVS) Hypertension (unable to receive p.o. meds) Atrial Fibrillation with RVR s/p tracheostomy Acute encephalopathy s/p CVA Oropharyngeal dysphagia Enterococcal bacteremia sepsis syndrome Sacral Decubitus Ulcer (s/p surgical debridement) Anemia Obesity JUANITA now on hemodialysis Enteric Fistula - place fentanyl patch for pain issues especially s/p debridement - continue NGT to LIS but begin low dose reglan - continue wound care per WCT and RH's (s/p surgical debridement) - ordered 1 unit PRBC for Hb of 6.3 - continue prn vasopressin if MAP falls < 60mmHg - prn CRP & lactate levels if clinically indicated (Follow WBC also) - keep on with daily PSV trials and / or T-piece as tolerated (repeat trial each shift if failed earlier shift) - continue TPN administration (continue TPN; NPO except for meds) - continue scopolamine for secretion control - continue to wean FiO2 for sats > 94% - continue bronchodilators and pulmonary toilet - VAP bundle addressed - continue prn IV metorolol - continue metoprolol and amlodipine (hold for hypotension) - continue HD/UF per nephrology (Teu/Thurs/Sat) - continue to follow electrolytes and correct as necessary - continue GI & VTE prophylaxis - Continue flu & pneumovax per protocol - ethics consult placed .....she remains critically ill on life sustaining interventions including MVS and at risk for further deterioration including ....32' CCT today without overlap ...fdc prognosis remains guarded and this has intermittently been conveyed to family Subjective Date of service: 12/29/16 Principal diagnosis: Acute resp failure on MVS; S/P Acute CVA; Acute Encephalopathy; JUANITA Interval history: Patient is seen today for: Acute resp failure on MVS; S/P Acute CVA; Acute Encephalopathy; JUANITA Seen and examined at bedside; 24hour events reviewed; nursing and respiratory care staff consulted; no adverse overnight events reported to me; remains on MVS ; s/p sacral wound debridement yesterday; grimacing intermittently (? pain) but AMS is persistent; still with NGT to LIS and significant drainage. Objective Vital Signs - 12hr 12/28/16 12/28/16 12/28/16 23:00 23:15 23:30 Temperature Pulse Rate 108 H 108 H 107 H Pulse Rate [ Anterior Bilateral Throughout] Pulse Rate [ From Monitor] Respiratory 23 26 H 25 H Rate Respiratory Rate [Anterior Bilateral Throughout] Blood Pressure 113/66 116/67 118/68 O2 Sat by Pulse 96 96 96 Oximetry O2 Sat by Pulse Oximetry [ Assessment] 12/28/16 12/29/16 12/29/16 23:45 00:00 00:05 Temperature 98.9 F Pulse Rate 109 H 106 H 107 H Pulse Rate [ Anterior Bilateral Throughout] Pulse Rate [ 104 H From Monitor] Respiratory 25 H 25 H Rate Respiratory Rate [Anterior Bilateral Throughout] Blood Pressure 124/67 103/56 103/56 O2 Sat by Pulse 97 96 96 Oximetry O2 Sat by Pulse Oximetry [ Assessment] 12/29/16 12/29/16 12/29/16 00:15 00:17 00:30 Temperature Pulse Rate 108 H 107 H 106 H Pulse Rate [ Anterior Bilateral Throughout] Pulse Rate [ From Monitor] Respiratory 22 26 H Rate Respiratory Rate [Anterior Bilateral Throughout] Blood Pressure 108/62 108/62 109/62 O2 Sat by Pulse 96 97 Oximetry O2 Sat by Pulse Oximetry [ Assessment] 12/29/16 12/29/16 12/29/16 00:45 01:00 01:15 Temperature Pulse Rate 113 H 109 H 112 H Pulse Rate [ Anterior Bilateral Throughout] Pulse Rate [ From Monitor] Respiratory 23 26 H 28 H Rate Respiratory Rate [Anterior Bilateral Throughout] Blood Pressure 128/75 109/55 115/59 O2 Sat by Pulse 97 97 96 Oximetry O2 Sat by Pulse Oximetry [ Assessment] 12/29/16 12/29/16 12/29/16 01:30 01:45 01:56 Temperature Pulse Rate 109 H 109 H Pulse Rate [ 110 H Anterior Bilateral Throughout] Pulse Rate [ From Monitor] Respiratory 26 H 27 H Rate Respiratory 15 Rate [Anterior Bilateral Throughout] Blood Pressure 110/60 117/65 O2 Sat by Pulse 96 96 Oximetry O2 Sat by Pulse Oximetry [ Assessment] 12/29/16 12/29/16 12/29/16 02:00 02:04 02:15 Temperature Pulse Rate 112 H 113 H Pulse Rate [ 112 H Anterior Bilateral Throughout] Pulse Rate [ From Monitor] Respiratory 20 27 H Rate Respiratory 16 Rate [Anterior Bilateral Throughout] Blood Pressure 116/67 99/56 O2 Sat by Pulse 98 95 Oximetry O2 Sat by Pulse Oximetry [ Assessment] 12/29/16 12/29/16 12/29/16 02:30 02:45 03:00 Temperature Pulse Rate 111 H 111 H 115 H Pulse Rate [ Anterior Bilateral Throughout] Pulse Rate [ From Monitor] Respiratory 27 H 26 H 25 H Rate Respiratory Rate [Anterior Bilateral Throughout] Blood Pressure 105/58 105/57 116/65 O2 Sat by Pulse 95 96 97 Oximetry O2 Sat by Pulse Oximetry [ Assessment] 12/29/16 12/29/16 12/29/16 03:15 03:30 03:45 Temperature Pulse Rate 130 H 118 H Pulse Rate [ Anterior Bilateral Throughout] Pulse Rate [ From Monitor] Respiratory 28 H 27 H Rate Respiratory Rate [Anterior Bilateral Throughout] Blood Pressure 116/65 141/84 115/66 O2 Sat by Pulse 99 100 99 Oximetry O2 Sat by Pulse Oximetry [ Assessment] 12/29/16 12/29/16 12/29/16 04:00 04:15 04:25 Temperature 98.8 F Pulse Rate 115 H 109 H 110 H Pulse Rate [ Anterior Bilateral Throughout] Pulse Rate [ 108 H From Monitor] Respiratory 22 25 H Rate Respiratory Rate [Anterior Bilateral Throughout] Blood Pressure 121/73 96/58 102/67 O2 Sat by Pulse 100 94 96 Oximetry O2 Sat by Pulse Oximetry [ Assessment] 12/29/16 12/29/16 12/29/16 04:30 04:45 05:00 Temperature Pulse Rate 109 H 110 H 112 H Pulse Rate [ Anterior Bilateral Throughout] Pulse Rate [ From Monitor] Respiratory 26 H 25 H 27 H Rate Respiratory Rate [Anterior Bilateral Throughout] Blood Pressure 102/67 110/62 116/65 O2 Sat by Pulse 96 95 95 Oximetry O2 Sat by Pulse Oximetry [ Assessment] 12/29/16 12/29/16 12/29/16 05:15 05:30 05:45 Temperature Pulse Rate 110 H 109 H 116 H Pulse Rate [ Anterior Bilateral Throughout] Pulse Rate [ From Monitor] Respiratory 26 H 27 H 21 Rate Respiratory Rate [Anterior Bilateral Throughout] Blood Pressure 116/70 113/65 113/72 O2 Sat by Pulse 97 97 98 Oximetry O2 Sat by Pulse Oximetry [ Assessment] 12/29/16 12/29/16 12/29/16 05:57 06:00 06:15 Temperature Pulse Rate 102 H 109 H 108 H Pulse Rate [ Anterior Bilateral Throughout] Pulse Rate [ From Monitor] Respiratory 26 H 29 H Rate Respiratory Rate [Anterior Bilateral Throughout] Blood Pressure 113/72 120/68 111/64 O2 Sat by Pulse 97 98 Oximetry O2 Sat by Pulse Oximetry [ Assessment] 12/29/16 12/29/16 12/29/16 06:30 06:45 07:00 Temperature Pulse Rate 110 H 110 H 107 H Pulse Rate [ Anterior Bilateral Throughout] Pulse Rate [ From Monitor] Respiratory 29 H 27 H 26 H Rate Respiratory Rate [Anterior Bilateral Throughout] Blood Pressure 117/68 120/69 110/67 O2 Sat by Pulse 98 98 97 Oximetry O2 Sat by Pulse Oximetry [ Assessment] 12/29/16 12/29/16 12/29/16 07:14 07:15 07:19 Temperature Pulse Rate 109 H 109 H Pulse Rate [ Anterior Bilateral Throughout] Pulse Rate [ From Monitor] Respiratory 28 H Rate Respiratory Rate [Anterior Bilateral Throughout] Blood Pressure 107/68 107/68 O2 Sat by Pulse 97 98 Oximetry O2 Sat by Pulse 97 Oximetry [ Assessment] 12/29/16 12/29/16 12/29/16 07:24 07:30 07:45 Temperature Pulse Rate 111 H 112 H Pulse Rate [ 113 H Anterior Bilateral Throughout] Pulse Rate [ From Monitor] Respiratory 15 29 H Rate Respiratory 14 Rate [Anterior Bilateral Throughout] Blood Pressure 114/60 116/70 O2 Sat by Pulse 94 97 Oximetry O2 Sat by Pulse Oximetry [ Assessment] 12/29/16 12/29/16 12/29/16 07:50 08:00 08:15 Temperature 98.5 F Pulse Rate 117 H 113 H Pulse Rate [ Anterior Bilateral Throughout] Pulse Rate [ From Monitor] Respiratory 28 H 23 Rate Respiratory Rate [Anterior Bilateral Throughout] Blood Pressure 109/49 122/77 O2 Sat by Pulse 94 98 Oximetry O2 Sat by Pulse Oximetry [ Assessment] 12/29/16 09:19 Temperature Pulse Rate Pulse Rate [ Anterior Bilateral Throughout] Pulse Rate [ From Monitor] Respiratory Rate Respiratory Rate [Anterior Bilateral Throughout] Blood Pressure 129/91 O2 Sat by Pulse Oximetry O2 Sat by Pulse Oximetry [ Assessment] Constitutional: appears uncomfortable, other (not tracking) Eyes: non-icteric, other (tracheostomy tube in midline of neck) ENT: oropharynx moist, oropharyngeal exudate pre Neck: supple, no lymphadenopathy, no JVD, other (no thyromegaly) Effort: mildly labored Ascultation: Bilateral: diminished breath sounds (bases), rhonchi (and referred upper airway sounds) Percussion: Bilateral: dull (bases) Cardiovascular: regular rate and rhythm, other (no rubs / murmurs) Gastrointestinal: hypoactive bowel sounds, soft, non-tender, non-distended, other (RLQ & LUQ stomas with colostomy bags) Integumentary: decubitus ulcer (sacral; stage 4 s/p surgical debridement), other (no rash; no cellulitis; poor turgor) Extremities: no cyanosis, pulses normal, no ischemia or petechiae, edema (1+ bilaterally) Neurologic: pupils equal and round, unable to assess, other (encephalopathic) Psychiatric: other (unable to assess) CBC and BMP: 12/29/16 13:45 12/29/16 05:15 ABG, PT/INR, D-dimer: ABG POC ABG pH 7.503 (7.35-7.45) H 12/19/16 09:36 ABG pH 7.450 pH Units (7.350-7.450) 12/05/16 Unknown POC ABG pCO2 30.1 (35-45) L 12/19/16 09:36 ABG pCO2 29.6 mm Hg 12/05/16 Unknown POC ABG pO2 85 (80-105) 12/19/16 09:36 ABG pO2 75.2 mm Hg (80.0-90.0) L 12/05/16 Unknown POC ABG HCO3 23.6 12/19/16 09:36 POC ABG Total CO2 25 12/19/16 09:36 POC ABG O2 Sat 97 12/19/16 09:36 ABG O2 Saturation 96.8 % (95.0-99.0) 12/05/16 Unknown PT/INR, D-dimer PT 16.1 Sec. (12.2-14.9) H 12/28/16 08:30 INR 1.23 (0.87-1.13) H 12/28/16 08:30 Abnormal lab findings: Abnormal Labs 09/03/16 09/03/16 09/03/16 12:12 15:07 16:20 WBC RBC Hgb Hct MCV MCH MCHC RDW Plt Count Lymph % (Auto) [place] % (Auto) Lymph # [place] # Baso # Seg Neutrophils % Seg Neuts % (Manual) Lymphocytes % (Manual) Monocytes % (Manual) Eosinophils % (Manual) Basophils % (Manual) Nucleated RBC % Seg Neutrophils # Seg Neutrophils # Man Lymphocytes # (Manual) Monocytes # (Manual) Eosinophils # (Manual) Basophils # (Manual) PT INR Fibrinogen dRVVT Confirm Interp Factor V Activity POC ABG pH 7.452 H POC ABG pCO2 POC ABG pO2 ABG pO2 ABG HCO3 ABG Base Excess ABG Hemoglobin Oxyhemoglobin Sodium Potassium Chloride Carbon Dioxide BUN Creatinine Glucose POC Glucose 178 H Lactic Acid Calcium Phosphorus 2.20 L Magnesium 1.60 L Direct Bilirubin AST ALT Alkaline Phosphatase Lactate Dehydrogenase Troponin T C-Reactive Protein Total Protein Albumin Prealbumin Triglycerides Cholesterol LDL Cholesterol Direct HDL Cholesterol Urine pH Urine WBC (Auto) Urine Creatinine Urine Total Protein Fluid Total Protein Vancomycin Trough Rheumatoid Factor Complement C4 Miscellaneous Test Crossmatch 09/03/16 09/03/16 09/03/16 17:57 17:58 23:50 WBC RBC Hgb Hct MCV MCH MCHC RDW Plt Count Lymph % (Auto) [place] % (Auto) Lymph # [place] # Baso # Seg Neutrophils % Seg Neuts % (Manual) Lymphocytes % (Manual) Monocytes % (Manual) Eosinophils % (Manual) Basophils % (Manual) Nucleated RBC % Seg Neutrophils # Seg Neutrophils # Man Lymphocytes # (Manual) Monocytes # (Manual) Eosinophils # (Manual) Basophils # (Manual) PT INR Fibrinogen dRVVT Confirm Interp Factor V Activity POC ABG pH POC ABG pCO2 POC ABG pO2 ABG pO2 ABG HCO3 ABG Base Excess ABG Hemoglobin Oxyhemoglobin Sodium Potassium Chloride Carbon Dioxide BUN Creatinine Glucose POC Glucose 162 H 145 H Lactic Acid Calcium Phosphorus 2.30 L Magnesium Direct Bilirubin AST ALT Alkaline Phosphatase Lactate Dehydrogenase Troponin T C-Reactive Protein Total Protein Albumin Prealbumin Triglycerides Cholesterol LDL Cholesterol Direct HDL Cholesterol Urine pH Urine WBC (Auto) Urine Creatinine Urine Total Protein Fluid Total Protein Vancomycin Trough Rheumatoid Factor Complement C4 Miscellaneous Test Crossmatch 09/04/16 09/04/16 09/04/16 03:31 03:31 05:42 WBC RBC Hgb 9.7 L D Hct MCV 72 L MCH 23 L MCHC RDW 17.5 H Plt Count Lymph % (Auto) 11.1 L [place] % (Auto) Lymph # [place] # Baso # Seg Neutrophils % 84.3 H Seg Neuts % (Manual) Lymphocytes % (Manual) Monocytes % (Manual) Eosinophils % (Manual) Basophils % (Manual) Nucleated RBC % Seg Neutrophils # 8.9 H Seg Neutrophils # Man Lymphocytes # (Manual) Monocytes # (Manual) Eosinophils # (Manual) Basophils # (Manual) PT INR Fibrinogen dRVVT Confirm Interp Factor V Activity POC ABG pH POC ABG pCO2 POC ABG pO2 ABG pO2 ABG HCO3 ABG Base Excess ABG Hemoglobin Oxyhemoglobin Sodium 135 L Potassium 2.9 L* Chloride 97.2 L Carbon Dioxide 19 L BUN Creatinine 1.7 H Glucose 170 H POC Glucose 152 H Lactic Acid Calcium Phosphorus Magnesium Direct Bilirubin AST ALT Alkaline Phosphatase Lactate Dehydrogenase Troponin T C-Reactive Protein Total Protein Albumin Prealbumin Triglycerides 160 H Cholesterol LDL Cholesterol Direct HDL Cholesterol 31 L Urine pH Urine WBC (Auto) Urine Creatinine Urine Total Protein Fluid Total Protein Vancomycin Trough Rheumatoid Factor Complement C4 Miscellaneous Test Crossmatch 09/04/16 09/04/16 09/04/16 11:34 17:46 23:29 WBC RBC Hgb Hct MCV MCH MCHC RDW Plt Count Lymph % (Auto) [place] % (Auto) Lymph # [place] # Baso # Seg Neutrophils % Seg Neuts % (Manual) Lymphocytes % (Manual) Monocytes % (Manual) Eosinophils % (Manual) Basophils % (Manual) Nucleated RBC % Seg Neutrophils # Seg Neutrophils # Man Lymphocytes # (Manual) Monocytes # (Manual) Eosinophils # (Manual) Basophils # (Manual) PT INR Fibrinogen dRVVT Confirm Interp Factor V Activity POC ABG pH POC ABG pCO2 POC ABG pO2 ABG pO2 ABG HCO3 ABG Base Excess ABG Hemoglobin Oxyhemoglobin Sodium Potassium Chloride Carbon Dioxide BUN Creatinine Glucose POC Glucose 165 H 210 H 139 H Lactic Acid Calcium Phosphorus Magnesium Direct Bilirubin AST ALT Alkaline Phosphatase Lactate Dehydrogenase Troponin T C-Reactive Protein Total Protein Albumin Prealbumin Triglycerides Cholesterol LDL Cholesterol Direct HDL Cholesterol Urine pH Urine WBC (Auto) Urine Creatinine Urine Total Protein Fluid Total Protein Vancomycin Trough Rheumatoid Factor Complement C4 Miscellaneous Test Crossmatch 09/05/16 09/05/16 09/05/16 04:05 04:05 05:38 WBC RBC Hgb Hct MCV 76 L D MCH 23 L MCHC RDW 17.8 H Plt Count Lymph % (Auto) [place] % (Auto) Lymph # [place] # Baso # Seg Neutrophils % Seg Neuts % (Manual) Lymphocytes % (Manual) Monocytes % (Manual) Eosinophils % (Manual) Basophils % (Manual) Nucleated RBC % Seg Neutrophils # Seg Neutrophils # Man Lymphocytes # (Manual) Monocytes # (Manual) Eosinophils # (Manual) Basophils # (Manual) PT INR Fibrinogen dRVVT Confirm Interp Factor V Activity POC ABG pH POC ABG pCO2 POC ABG pO2 ABG pO2 ABG HCO3 ABG Base Excess ABG Hemoglobin Oxyhemoglobin Sodium 134 L Potassium Chloride Carbon Dioxide 18 L BUN Creatinine 1.8 H Glucose 192 H POC Glucose 175 H Lactic Acid Calcium Phosphorus Magnesium Direct Bilirubin AST ALT Alkaline Phosphatase Lactate Dehydrogenase Troponin T C-Reactive Protein Total Protein Albumin Prealbumin Triglycerides Cholesterol LDL Cholesterol Direct HDL Cholesterol Urine pH Urine WBC (Auto) Urine Creatinine Urine Total Protein Fluid Total Protein Vancomycin Trough Rheumatoid Factor Complement C4 Miscellaneous Test Crossmatch 09/05/16 09/05/16 09/05/16 11:38 17:48 23:22 WBC RBC Hgb Hct MCV MCH MCHC RDW Plt Count Lymph % (Auto) [place] % (Auto) Lymph # [place] # Baso # Seg Neutrophils % Seg Neuts % (Manual) Lymphocytes % (Manual) Monocytes % (Manual) Eosinophils % (Manual) Basophils % (Manual) Nucleated RBC % Seg Neutrophils # Seg Neutrophils # Man Lymphocytes # (Manual) Monocytes # (Manual) Eosinophils # (Manual) Basophils # (Manual) PT INR Fibrinogen dRVVT Confirm Interp Factor V Activity POC ABG pH POC ABG pCO2 POC ABG pO2 ABG pO2 ABG HCO3 ABG Base Excess ABG Hemoglobin Oxyhemoglobin Sodium Potassium Chloride Carbon Dioxide BUN Creatinine Glucose POC Glucose 164 H 186 H 195 H Lactic Acid Calcium Phosphorus Magnesium Direct Bilirubin AST ALT Alkaline Phosphatase Lactate Dehydrogenase Troponin T C-Reactive Protein Total Protein Albumin Prealbumin Triglycerides Cholesterol LDL Cholesterol Direct HDL Cholesterol Urine pH Urine WBC (Auto) Urine Creatinine Urine Total Protein Fluid Total Protein Vancomycin Trough Rheumatoid Factor Complement C4 Miscellaneous Test Crossmatch 09/06/16 09/06/16 09/06/16 04:12 05:59 07:32 WBC RBC Hgb Hct MCV MCH MCHC RDW Plt Count Lymph % (Auto) [place] % (Auto) Lymph # [place] # Baso # Seg Neutrophils % Seg Neuts % (Manual) Lymphocytes % (Manual) Monocytes % (Manual) Eosinophils % (Manual) Basophils % (Manual) Nucleated RBC % Seg Neutrophils # Seg Neutrophils # Man Lymphocytes # (Manual) Monocytes # (Manual) Eosinophils # (Manual) Basophils # (Manual) PT INR Fibrinogen dRVVT Confirm Interp Factor V Activity POC ABG pH 7.514 H POC ABG pCO2 29.1 L POC ABG pO2 72 L ABG pO2 ABG HCO3 ABG Base Excess ABG Hemoglobin Oxyhemoglobin Sodium 133 L Potassium 3.4 L Chloride 94.9 L Carbon Dioxide 19 L BUN 30 H Creatinine 2.1 H Glucose 139 H POC Glucose 146 H Lactic Acid Calcium Phosphorus Magnesium Direct Bilirubin AST ALT Alkaline Phosphatase Lactate Dehydrogenase Troponin T C-Reactive Protein Total Protein Albumin Prealbumin Triglycerides Cholesterol LDL Cholesterol Direct HDL Cholesterol Urine pH Urine WBC (Auto) Urine Creatinine Urine Total Protein Fluid Total Protein Vancomycin Trough Rheumatoid Factor Complement C4 Miscellaneous Test Crossmatch 09/06/16 09/06/16 09/06/16 11:57 17:58 19:02 WBC RBC Hgb Hct MCV MCH MCHC RDW Plt Count Lymph % (Auto) [place] % (Auto) Lymph # [place] # Baso # Seg Neutrophils % Seg Neuts % (Manual) Lymphocytes % (Manual) Monocytes % (Manual) Eosinophils % (Manual) Basophils % (Manual) Nucleated RBC % Seg Neutrophils # Seg Neutrophils # Man Lymphocytes # (Manual) Monocytes # (Manual) Eosinophils # (Manual) Basophils # (Manual) PT INR Fibrinogen dRVVT Confirm Interp Factor V Activity POC ABG pH 7.465 H POC ABG pCO2 32.0 L POC ABG pO2 ABG pO2 ABG HCO3 ABG Base Excess ABG Hemoglobin Oxyhemoglobin Sodium Potassium Chloride Carbon Dioxide BUN Creatinine Glucose POC Glucose 165 H 160 H Lactic Acid Calcium Phosphorus Magnesium Direct Bilirubin AST ALT Alkaline Phosphatase Lactate Dehydrogenase Troponin T C-Reactive Protein Total Protein Albumin Prealbumin Triglycerides Cholesterol LDL Cholesterol Direct HDL Cholesterol Urine pH Urine WBC (Auto) Urine Creatinine Urine Total Protein Fluid Total Protein Vancomycin Trough Rheumatoid Factor Complement C4 Miscellaneous Test Crossmatch 09/06/16 09/07/16 09/07/16 23:45 02:47 02:47 WBC RBC Hgb Hct MCV MCH MCHC RDW Plt Count Lymph % (Auto) [place] % (Auto) Lymph # [place] # Baso # Seg Neutrophils % Seg Neuts % (Manual) Lymphocytes % (Manual) Monocytes % (Manual) Eosinophils % (Manual) Basophils % (Manual) Nucleated RBC % Seg Neutrophils # Seg Neutrophils # Man Lymphocytes # (Manual) Monocytes # (Manual) Eosinophils # (Manual) Basophils # (Manual) PT INR Fibrinogen dRVVT Confirm Interp Factor V Activity POC ABG pH POC ABG pCO2 POC ABG pO2 ABG pO2 ABG HCO3 ABG Base Excess ABG Hemoglobin Oxyhemoglobin Sodium Potassium Chloride Carbon Dioxide BUN Creatinine Glucose POC Glucose 204 H Lactic Acid Calcium Phosphorus Magnesium Direct Bilirubin AST ALT Alkaline Phosphatase Lactate Dehydrogenase Troponin T C-Reactive Protein Total Protein Albumin Prealbumin Triglycerides Cholesterol LDL Cholesterol Direct HDL Cholesterol Urine pH Urine WBC (Auto) 68.0 H Urine Creatinine 106.1 H Urine Total Protein Fluid Total Protein Vancomycin Trough Rheumatoid Factor Complement C4 Miscellaneous Test Crossmatch 09/07/16 09/07/16 09/07/16 04:50 06:19 06:39 WBC RBC Hgb Hct MCV MCH MCHC RDW Plt Count Lymph % (Auto) [place] % (Auto) Lymph # [place] # Baso # Seg Neutrophils % Seg Neuts % (Manual) Lymphocytes % (Manual) Monocytes % (Manual) Eosinophils % (Manual) Basophils % (Manual) Nucleated RBC % Seg Neutrophils # Seg Neutrophils # Man Lymphocytes # (Manual) Monocytes # (Manual) Eosinophils # (Manual) Basophils # (Manual) PT INR Fibrinogen dRVVT Confirm Interp Factor V Activity POC ABG pH 7.457 H POC ABG pCO2 32.1 L POC ABG pO2 76 L ABG pO2 ABG HCO3 ABG Base Excess ABG Hemoglobin Oxyhemoglobin Sodium 132 L Potassium Chloride 94.7 L Carbon Dioxide BUN 53 H Creatinine 2.9 H Glucose 151 H POC Glucose 149 H Lactic Acid Calcium Phosphorus Magnesium Direct Bilirubin AST ALT Alkaline Phosphatase Lactate Dehydrogenase Troponin T C-Reactive Protein Total Protein Albumin Prealbumin Triglycerides Cholesterol LDL Cholesterol Direct HDL Cholesterol Urine pH Urine WBC (Auto) Urine Creatinine Urine Total Protein Fluid Total Protein Vancomycin Trough Rheumatoid Factor Complement C4 Miscellaneous Test Crossmatch 09/07/16 09/07/16 09/07/16 09:20 11:43 11:43 WBC 19.4 H RBC Hgb 8.3 L Hct 26.4 L D MCV 72 L D MCH 22 L MCHC RDW 17.9 H Plt Count Lymph % (Auto) 8.5 L [place] % (Auto) Lymph # [place] # 1.0 H Baso # Seg Neutrophils % 85.8 H Seg Neuts % (Manual) Lymphocytes % (Manual) Monocytes % (Manual) Eosinophils % (Manual) Basophils % (Manual) Nucleated RBC % Seg Neutrophils # 16.6 H Seg Neutrophils # Man Lymphocytes # (Manual) Monocytes # (Manual) Eosinophils # (Manual) Basophils # (Manual) PT INR Fibrinogen dRVVT Confirm Interp Factor V Activity POC ABG pH POC ABG pCO2 POC ABG pO2 ABG pO2 ABG HCO3 ABG Base Excess ABG Hemoglobin Oxyhemoglobin Sodium 134 L Potassium Chloride 97.2 L Carbon Dioxide 20 L BUN 58 H Creatinine 2.9 H Glucose 147 H POC Glucose Lactic Acid Calcium Phosphorus 2.40 L Magnesium 2.40 H Direct Bilirubin AST ALT Alkaline Phosphatase Lactate Dehydrogenase Troponin T C-Reactive Protein Total Protein 5.8 L Albumin 2.2 L Prealbumin Triglycerides Cholesterol LDL Cholesterol Direct HDL Cholesterol Urine pH Urine WBC (Auto) Urine Creatinine Urine Total Protein Fluid Total Protein Vancomycin Trough Rheumatoid Factor Complement C4 58 H Miscellaneous Test Crossmatch 09/07/16 09/07/16 09/07/16 11:50 16:00 17:31 WBC RBC Hgb Hct MCV MCH MCHC RDW Plt Count Lymph % (Auto) [place] % (Auto) Lymph # [place] # Baso # Seg Neutrophils % Seg Neuts % (Manual) Lymphocytes % (Manual) Monocytes % (Manual) Eosinophils % (Manual) Basophils % (Manual) Nucleated RBC % Seg Neutrophils # Seg Neutrophils # Man Lymphocytes # (Manual) Monocytes # (Manual) Eosinophils # (Manual) Basophils # (Manual) PT INR Fibrinogen dRVVT Confirm Interp Factor V Activity POC ABG pH POC ABG pCO2 POC ABG pO2 158 H ABG pO2 ABG HCO3 ABG Base Excess ABG Hemoglobin Oxyhemoglobin Sodium Potassium Chloride Carbon Dioxide BUN Creatinine Glucose POC Glucose 175 H Lactic Acid Calcium Phosphorus Magnesium Direct Bilirubin AST ALT Alkaline Phosphatase Lactate Dehydrogenase Troponin T C-Reactive Protein Total Protein Albumin Prealbumin Triglycerides Cholesterol LDL Cholesterol Direct HDL Cholesterol Urine pH Urine WBC (Auto) Urine Creatinine 66.3 H Urine Total Protein Fluid Total Protein Vancomycin Trough Rheumatoid Factor Complement C4 Miscellaneous Test Crossmatch 09/07/16 09/08/16 09/08/16 23:50 05:46 06:18 WBC 17.8 H RBC 3.58 L Hgb 8.1 L Hct 25.5 L MCV 71 L MCH 23 L MCHC RDW 18.4 H Plt Count Lymph % (Auto) [place] % (Auto) Lymph # [place] # Baso # Seg Neutrophils % Seg Neuts % (Manual) 92.0 H Lymphocytes % (Manual) 6.0 L Monocytes % (Manual) Eosinophils % (Manual) Basophils % (Manual) Nucleated RBC % Seg Neutrophils # Seg Neutrophils # Man 16.4 H Lymphocytes # (Manual) 1.1 L Monocytes # (Manual) Eosinophils # (Manual) Basophils # (Manual) PT INR Fibrinogen dRVVT Confirm Interp Factor V Activity POC ABG pH POC ABG pCO2 34.3 L POC ABG pO2 71 L ABG pO2 ABG HCO3 ABG Base Excess ABG Hemoglobin Oxyhemoglobin Sodium Potassium Chloride Carbon Dioxide BUN Creatinine Glucose POC Glucose 216 H Lactic Acid Calcium Phosphorus Magnesium Direct Bilirubin AST ALT Alkaline Phosphatase Lactate Dehydrogenase Troponin T C-Reactive Protein Total Protein Albumin Prealbumin Triglycerides Cholesterol LDL Cholesterol Direct HDL Cholesterol Urine pH Urine WBC (Auto) Urine Creatinine Urine Total Protein Fluid Total Protein Vancomycin Trough Rheumatoid Factor Complement C4 Miscellaneous Test Crossmatch 09/08/16 09/08/16 09/08/16 06:18 06:51 10:55 WBC RBC Hgb Hct MCV MCH MCHC RDW Plt Count Lymph % (Auto) [place] % (Auto) Lymph # [place] # Baso # Seg Neutrophils % Seg Neuts % (Manual) Lymphocytes % (Manual) Monocytes % (Manual) Eosinophils % (Manual) Basophils % (Manual) Nucleated RBC % Seg Neutrophils # Seg Neutrophils # Man Lymphocytes # (Manual) Monocytes # (Manual) Eosinophils # (Manual) Basophils # (Manual) PT INR Fibrinogen dRVVT Confirm Interp Factor V Activity POC ABG pH POC ABG pCO2 POC ABG pO2 ABG pO2 ABG HCO3 ABG Base Excess ABG Hemoglobin Oxyhemoglobin Sodium 133 L Potassium Chloride 96.9 L Carbon Dioxide 20 L BUN 63 H Creatinine 2.7 H Glucose 195 H POC Glucose 204 H 169 H Lactic Acid Calcium Phosphorus Magnesium Direct Bilirubin AST ALT Alkaline Phosphatase Lactate Dehydrogenase Troponin T C-Reactive Protein Total Protein Albumin Prealbumin Triglycerides Cholesterol LDL Cholesterol Direct HDL Cholesterol Urine pH Urine WBC (Auto) Urine Creatinine Urine Total Protein Fluid Total Protein Vancomycin Trough Rheumatoid Factor Complement C4 Miscellaneous Test Crossmatch 09/08/16 09/08/16 09/08/16 11:48 11:48 11:48 WBC RBC Hgb Hct MCV MCH MCHC RDW Plt Count Lymph % (Auto) [place] % (Auto) Lymph # [place] # Baso # Seg Neutrophils % Seg Neuts % (Manual) Lymphocytes % (Manual) Monocytes % (Manual) Eosinophils % (Manual) Basophils % (Manual) Nucleated RBC % Seg Neutrophils # Seg Neutrophils # Man Lymphocytes # (Manual) Monocytes # (Manual) Eosinophils # (Manual) Basophils # (Manual) PT INR Fibrinogen 750 H dRVVT Confirm Interp Factor V Activity POC ABG pH POC ABG pCO2 POC ABG pO2 ABG pO2 ABG HCO3 ABG Base Excess ABG Hemoglobin Oxyhemoglobin Sodium Potassium Chloride Carbon Dioxide BUN Creatinine Glucose POC Glucose Lactic Acid Calcium Phosphorus Magnesium Direct Bilirubin AST ALT Alkaline Phosphatase Lactate Dehydrogenase Troponin T C-Reactive Protein 15.70 H Total Protein Albumin Prealbumin Triglycerides Cholesterol LDL Cholesterol Direct HDL Cholesterol Urine pH Urine WBC (Auto) Urine Creatinine Urine Total Protein Fluid Total Protein Vancomycin Trough Rheumatoid Factor 24 H Complement C4 Miscellaneous Test Crossmatch 09/08/16 09/08/16 09/09/16 15:35 18:25 00:24 WBC RBC Hgb Hct MCV MCH MCHC RDW Plt Count Lymph % (Auto) [place] % (Auto) Lymph # [place] # Baso # Seg Neutrophils % Seg Neuts % (Manual) Lymphocytes % (Manual) Monocytes % (Manual) Eosinophils % (Manual) Basophils % (Manual) Nucleated RBC % Seg Neutrophils # Seg Neutrophils # Man Lymphocytes # (Manual) Monocytes # (Manual) Eosinophils # (Manual) Basophils # (Manual) PT INR Fibrinogen dRVVT Confirm Interp Factor V Activity 182 H POC ABG pH POC ABG pCO2 POC ABG pO2 ABG pO2 ABG HCO3 ABG Base Excess ABG Hemoglobin Oxyhemoglobin Sodium Potassium Chloride Carbon Dioxide BUN Creatinine Glucose POC Glucose 184 H 216 H Lactic Acid Calcium Phosphorus Magnesium Direct Bilirubin AST ALT Alkaline Phosphatase Lactate Dehydrogenase Troponin T C-Reactive Protein Total Protein Albumin Prealbumin Triglycerides Cholesterol LDL Cholesterol Direct HDL Cholesterol Urine pH Urine WBC (Auto) Urine Creatinine Urine Total Protein Fluid Total Protein Vancomycin Trough Rheumatoid Factor Complement C4 Miscellaneous Test Crossmatch 09/09/16 09/09/16 09/09/16 03:00 03:00 04:04 WBC 27.9 H RBC Hgb 8.7 L Hct 28.1 L MCV 72 L MCH 22 L MCHC RDW 18.4 H Plt Count 485 H Lymph % (Auto) [place] % (Auto) Lymph # [place] # Baso # Seg Neutrophils % Seg Neuts % (Manual) 77.0 H Lymphocytes % (Manual) 9.0 L Monocytes % (Manual) Eosinophils % (Manual) Basophils % (Manual) Nucleated RBC % Seg Neutrophils # Seg Neutrophils # Man 21.5 H Lymphocytes # (Manual) Monocytes # (Manual) 2.0 H Eosinophils # (Manual) Basophils # (Manual) PT INR Fibrinogen dRVVT Confirm Interp Factor V Activity POC ABG pH POC ABG pCO2 POC ABG pO2 121 H ABG pO2 ABG HCO3 ABG Base Excess ABG Hemoglobin Oxyhemoglobin Sodium 135 L Potassium Chloride 96.3 L Carbon Dioxide 21 L BUN 83 H Creatinine 3.0 H Glucose 135 H POC Glucose Lactic Acid Calcium Phosphorus Magnesium Direct Bilirubin AST ALT Alkaline Phosphatase Lactate Dehydrogenase Troponin T C-Reactive Protein Total Protein Albumin Prealbumin Triglycerides Cholesterol LDL Cholesterol Direct HDL Cholesterol Urine pH Urine WBC (Auto) Urine Creatinine Urine Total Protein Fluid Total Protein Vancomycin Trough Rheumatoid Factor Complement C4 Miscellaneous Test Crossmatch 09/09/16 09/09/16 09/09/16 05:41 11:55 14:13 WBC RBC Hgb Hct MCV MCH MCHC RDW Plt Count Lymph % (Auto) [place] % (Auto) Lymph # [place] # Baso # Seg Neutrophils % Seg Neuts % (Manual) Lymphocytes % (Manual) Monocytes % (Manual) Eosinophils % (Manual) Basophils % (Manual) Nucleated RBC % Seg Neutrophils # Seg Neutrophils # Man Lymphocytes # (Manual) Monocytes # (Manual) Eosinophils # (Manual) Basophils # (Manual) PT INR Fibrinogen dRVVT Confirm Interp Factor V Activity POC ABG pH POC ABG pCO2 POC ABG pO2 ABG pO2 ABG HCO3 ABG Base Excess ABG Hemoglobin Oxyhemoglobin Sodium Potassium Chloride Carbon Dioxide BUN Creatinine Glucose POC Glucose 155 H 186 H Lactic Acid Calcium Phosphorus Magnesium Direct Bilirubin AST ALT Alkaline Phosphatase Lactate Dehydrogenase Troponin T C-Reactive Protein Total Protein Albumin Prealbumin Triglycerides Cholesterol LDL Cholesterol Direct HDL Cholesterol Urine pH Urine WBC (Auto) 25.0 H Urine Creatinine Urine Total Protein Fluid Total Protein Vancomycin Trough Rheumatoid Factor Complement C4 Miscellaneous Test Crossmatch 09/09/16 09/09/16 09/10/16 17:33 23:13 05:09 WBC RBC Hgb Hct MCV MCH MCHC RDW Plt Count Lymph % (Auto) [place] % (Auto) Lymph # [place] # Baso # Seg Neutrophils % Seg Neuts % (Manual) Lymphocytes % (Manual) Monocytes % (Manual) Eosinophils % (Manual) Basophils % (Manual) Nucleated RBC % Seg Neutrophils # Seg Neutrophils # Man Lymphocytes # (Manual) Monocytes # (Manual) Eosinophils # (Manual) Basophils # (Manual) PT INR Fibrinogen dRVVT Confirm Interp Factor V Activity POC ABG pH POC ABG pCO2 POC ABG pO2 74 L ABG pO2 ABG HCO3 ABG Base Excess ABG Hemoglobin Oxyhemoglobin Sodium Potassium Chloride Carbon Dioxide BUN Creatinine Glucose POC Glucose 211 H 215 H Lactic Acid Calcium Phosphorus Magnesium Direct Bilirubin AST ALT Alkaline Phosphatase Lactate Dehydrogenase Troponin T C-Reactive Protein Total Protein Albumin Prealbumin Triglycerides Cholesterol LDL Cholesterol Direct HDL Cholesterol Urine pH Urine WBC (Auto) Urine Creatinine Urine Total Protein Fluid Total Protein Vancomycin Trough Rheumatoid Factor Complement C4 Miscellaneous Test Crossmatch 09/10/16 09/10/16 09/10/16 05:17 05:17 11:31 WBC 15.8 H RBC 3.25 L Hgb 7.3 L Hct 22.9 L MCV 71 L MCH 23 L MCHC RDW 18.4 H Plt Count Lymph % (Auto) [place] % (Auto) Lymph # [place] # Baso # Seg Neutrophils % Seg Neuts % (Manual) 91.0 H Lymphocytes % (Manual) 4.0 L Monocytes % (Manual) Eosinophils % (Manual) Basophils % (Manual) Nucleated RBC % Seg Neutrophils # Seg Neutrophils # Man 14.4 H Lymphocytes # (Manual) 0.6 L Monocytes # (Manual) Eosinophils # (Manual) Basophils # (Manual) PT INR Fibrinogen dRVVT Confirm Interp Factor V Activity POC ABG pH POC ABG pCO2 POC ABG pO2 ABG pO2 ABG HCO3 ABG Base Excess ABG Hemoglobin Oxyhemoglobin Sodium Potassium Chloride Carbon Dioxide 21 L BUN 93 H Creatinine 2.9 H Glucose 146 H POC Glucose 188 H Lactic Acid Calcium 8.1 L Phosphorus Magnesium Direct Bilirubin AST ALT Alkaline Phosphatase Lactate Dehydrogenase Troponin T C-Reactive Protein Total Protein Albumin Prealbumin Triglycerides Cholesterol LDL Cholesterol Direct HDL Cholesterol Urine pH Urine WBC (Auto) Urine Creatinine Urine Total Protein Fluid Total Protein Vancomycin Trough Rheumatoid Factor Complement C4 Miscellaneous Test Crossmatch 09/10/16 09/10/16 09/10/16 13:17 17:20 23:32 WBC RBC Hgb Hct MCV MCH MCHC RDW Plt Count Lymph % (Auto) [place] % (Auto) Lymph # [place] # Baso # Seg Neutrophils % Seg Neuts % (Manual) Lymphocytes % (Manual) Monocytes % (Manual) Eosinophils % (Manual) Basophils % (Manual) Nucleated RBC % Seg Neutrophils # Seg Neutrophils # Man Lymphocytes # (Manual) Monocytes # (Manual) Eosinophils # (Manual) Basophils # (Manual) PT INR Fibrinogen dRVVT Confirm Interp Factor V Activity POC ABG pH POC ABG pCO2 POC ABG pO2 ABG pO2 ABG HCO3 ABG Base Excess ABG Hemoglobin Oxyhemoglobin Sodium Potassium Chloride Carbon Dioxide BUN Creatinine Glucose POC Glucose 199 H 186 H Lactic Acid Calcium Phosphorus Magnesium Direct Bilirubin AST ALT Alkaline Phosphatase Lactate Dehydrogenase Troponin T C-Reactive Protein Total Protein Albumin Prealbumin Triglycerides Cholesterol LDL Cholesterol Direct HDL Cholesterol Urine pH Urine WBC (Auto) Urine Creatinine Urine Total Protein Fluid Total Protein Vancomycin Trough Rheumatoid Factor Complement C4 Miscellaneous Test Crossmatch See Detail 09/11/16 09/11/16 09/11/16 05:10 05:10 05:17 WBC 28.4 H RBC Hgb 9.2 L Hct 29.3 L D MCV 73 L MCH 23 L MCHC RDW 18.9 H Plt Count 452 H Lymph % (Auto) [place] % (Auto) Lymph # [place] # Baso # Seg Neutrophils % Seg Neuts % (Manual) 89.5 H Lymphocytes % (Manual) 2.0 L Monocytes % (Manual) Eosinophils % (Manual) Basophils % (Manual) Nucleated RBC % Seg Neutrophils # Seg Neutrophils # Man 25.4 H Lymphocytes # (Manual) 0.6 L Monocytes # (Manual) 1.3 H Eosinophils # (Manual) Basophils # (Manual) PT INR Fibrinogen dRVVT Confirm Interp Factor V Activity POC ABG pH POC ABG pCO2 POC ABG pO2 ABG pO2 ABG HCO3 ABG Base Excess ABG Hemoglobin Oxyhemoglobin Sodium 136 L Potassium Chloride Carbon Dioxide 18 L BUN 107 H Creatinine 2.6 H Glucose 187 H POC Glucose 230 H Lactic Acid Calcium 8.3 L Phosphorus Magnesium Direct Bilirubin AST ALT Alkaline Phosphatase Lactate Dehydrogenase Troponin T C-Reactive Protein Total Protein Albumin Prealbumin Triglycerides Cholesterol LDL Cholesterol Direct HDL Cholesterol Urine pH Urine WBC (Auto) Urine Creatinine Urine Total Protein Fluid Total Protein Vancomycin Trough Rheumatoid Factor Complement C4 Miscellaneous Test Crossmatch 09/11/16 09/11/16 09/11/16 05:55 12:02 17:32 WBC RBC Hgb Hct MCV MCH MCHC RDW Plt Count Lymph % (Auto) [place] % (Auto) Lymph # [place] # Baso # Seg Neutrophils % Seg Neuts % (Manual) Lymphocytes % (Manual) Monocytes % (Manual) Eosinophils % (Manual) Basophils % (Manual) Nucleated RBC % Seg Neutrophils # Seg Neutrophils # Man Lymphocytes # (Manual) Monocytes # (Manual) Eosinophils # (Manual) Basophils # (Manual) PT INR Fibrinogen dRVVT Confirm Interp Factor V Activity POC ABG pH POC ABG pCO2 33.8 L POC ABG pO2 ABG pO2 ABG HCO3 ABG Base Excess ABG Hemoglobin Oxyhemoglobin Sodium Potassium Chloride Carbon Dioxide BUN Creatinine Glucose POC Glucose 191 H 239 H Lactic Acid Calcium Phosphorus Magnesium Direct Bilirubin AST ALT Alkaline Phosphatase Lactate Dehydrogenase Troponin T C-Reactive Protein Total Protein Albumin Prealbumin Triglycerides Cholesterol LDL Cholesterol Direct HDL Cholesterol Urine pH Urine WBC (Auto) Urine Creatinine Urine Total Protein Fluid Total Protein Vancomycin Trough Rheumatoid Factor Complement C4 Miscellaneous Test Crossmatch 09/11/16 09/12/16 09/12/16 23:52 05:09 05:32 WBC RBC Hgb Hct MCV MCH MCHC RDW Plt Count Lymph % (Auto) [place] % (Auto) Lymph # [place] # Baso # Seg Neutrophils % Seg Neuts % (Manual) Lymphocytes % (Manual) Monocytes % (Manual) Eosinophils % (Manual) Basophils % (Manual) Nucleated RBC % Seg Neutrophils # Seg Neutrophils # Man Lymphocytes # (Manual) Monocytes # (Manual) Eosinophils # (Manual) Basophils # (Manual) PT INR Fibrinogen dRVVT Confirm Interp Factor V Activity POC ABG pH POC ABG pCO2 34.6 L POC ABG pO2 ABG pO2 ABG HCO3 ABG Base Excess ABG Hemoglobin Oxyhemoglobin Sodium Potassium Chloride Carbon Dioxide BUN Creatinine Glucose POC Glucose 265 H 184 H Lactic Acid Calcium Phosphorus Magnesium Direct Bilirubin AST ALT Alkaline Phosphatase Lactate Dehydrogenase Troponin T C-Reactive Protein Total Protein Albumin Prealbumin Triglycerides Cholesterol LDL Cholesterol Direct HDL Cholesterol Urine pH Urine WBC (Auto) Urine Creatinine Urine Total Protein Fluid Total Protein Vancomycin Trough Rheumatoid Factor Complement C4 Miscellaneous Test Crossmatch 09/12/16 09/12/16 09/12/16 06:45 06:45 07:22 WBC 31.7 H RBC 3.54 L Hgb 8.3 L Hct 25.9 L MCV 73 L MCH 23 L MCHC RDW 18.9 H Plt Count Lymph % (Auto) [place] % (Auto) Lymph # [place] # Baso # Seg Neutrophils % Seg Neuts % (Manual) 88.5 H Lymphocytes % (Manual) 4.5 L Monocytes % (Manual) Eosinophils % (Manual) Basophils % (Manual) Nucleated RBC % Seg Neutrophils # Seg Neutrophils # Man 28.1 H Lymphocytes # (Manual) Monocytes # (Manual) 1.0 H Eosinophils # (Manual) Basophils # (Manual) PT INR Fibrinogen dRVVT Confirm Interp Factor V Activity POC ABG pH POC ABG pCO2 POC ABG pO2 ABG pO2 ABG HCO3 ABG Base Excess ABG Hemoglobin Oxyhemoglobin Sodium Potassium Chloride Carbon Dioxide 20 L BUN 115 H Creatinine 2.7 H Glucose 165 H POC Glucose Lactic Acid Calcium 8.0 L Phosphorus Magnesium Direct Bilirubin AST ALT Alkaline Phosphatase Lactate Dehydrogenase Troponin T C-Reactive Protein Total Protein Albumin Prealbumin Triglycerides 217 H Cholesterol LDL Cholesterol Direct HDL Cholesterol Urine pH Urine WBC (Auto) Urine Creatinine Urine Total Protein Fluid Total Protein Vancomycin Trough Rheumatoid Factor Complement C4 Miscellaneous Test Crossmatch 09/12/16 09/12/16 09/12/16 07:22 09:59 12:21 WBC RBC Hgb Hct MCV MCH MCHC RDW Plt Count Lymph % (Auto) [place] % (Auto) Lymph # [place] # Baso # Seg Neutrophils % Seg Neuts % (Manual) Lymphocytes % (Manual) Monocytes % (Manual) Eosinophils % (Manual) Basophils % (Manual) Nucleated RBC % Seg Neutrophils # Seg Neutrophils # Man Lymphocytes # (Manual) Monocytes # (Manual) Eosinophils # (Manual) Basophils # (Manual) PT INR Fibrinogen dRVVT Confirm Interp Positive H Factor V Activity POC ABG pH POC ABG pCO2 POC ABG pO2 ABG pO2 ABG HCO3 ABG Base Excess ABG Hemoglobin Oxyhemoglobin Sodium Potassium Chloride Carbon Dioxide BUN Creatinine Glucose POC Glucose 224 H Lactic Acid Calcium Phosphorus Magnesium Direct Bilirubin AST ALT Alkaline Phosphatase Lactate Dehydrogenase Troponin T C-Reactive Protein 1.70 H Total Protein Albumin Prealbumin Triglycerides Cholesterol LDL Cholesterol Direct HDL Cholesterol Urine pH Urine WBC (Auto) Urine Creatinine Urine Total Protein Fluid Total Protein Vancomycin Trough Rheumatoid Factor Complement C4 Miscellaneous Test Crossmatch 09/12/16 09/12/16 09/13/16 16:51 23:28 04:00 WBC 45.0 H* RBC Hgb 9.4 L Hct MCV 75 L MCH 23 L MCHC RDW 19.0 H Plt Count 470 H Lymph % (Auto) [place] % (Auto) Lymph # [place] # Baso # Seg Neutrophils % Seg Neuts % (Manual) 89.0 H Lymphocytes % (Manual) 5.0 L Monocytes % (Manual) Eosinophils % (Manual) Basophils % (Manual) Nucleated RBC % Seg Neutrophils # Seg Neutrophils # Man 40.1 H Lymphocytes # (Manual) Monocytes # (Manual) Eosinophils # (Manual) Basophils # (Manual) PT INR Fibrinogen dRVVT Confirm Interp Factor V Activity POC ABG pH POC ABG pCO2 POC ABG pO2 ABG pO2 ABG HCO3 ABG Base Excess ABG Hemoglobin Oxyhemoglobin Sodium Potassium Chloride Carbon Dioxide BUN Creatinine Glucose POC Glucose 169 H 150 H Lactic Acid Calcium Phosphorus Magnesium Direct Bilirubin AST ALT Alkaline Phosphatase Lactate Dehydrogenase Troponin T C-Reactive Protein Total Protein Albumin Prealbumin Triglycerides Cholesterol LDL Cholesterol Direct HDL Cholesterol Urine pH Urine WBC (Auto) Urine Creatinine Urine Total Protein Fluid Total Protein Vancomycin Trough Rheumatoid Factor Complement C4 Miscellaneous Test Crossmatch 09/13/16 09/13/16 09/13/16 04:00 11:26 17:31 WBC RBC Hgb Hct MCV MCH MCHC RDW Plt Count Lymph % (Auto) [place] % (Auto) Lymph # [place] # Baso # Seg Neutrophils % Seg Neuts % (Manual) Lymphocytes % (Manual) Monocytes % (Manual) Eosinophils % (Manual) Basophils % (Manual) Nucleated RBC % Seg Neutrophils # Seg Neutrophils # Man Lymphocytes # (Manual) Monocytes # (Manual) Eosinophils # (Manual) Basophils # (Manual) PT INR Fibrinogen dRVVT Confirm Interp Factor V Activity POC ABG pH POC ABG pCO2 POC ABG pO2 ABG pO2 ABG HCO3 ABG Base Excess ABG Hemoglobin Oxyhemoglobin Sodium Potassium Chloride Carbon Dioxide 20 L BUN 116 H Creatinine 3.0 H Glucose 172 H POC Glucose 140 H 183 H Lactic Acid Calcium Phosphorus Magnesium Direct Bilirubin AST ALT Alkaline Phosphatase Lactate Dehydrogenase Troponin T C-Reactive Protein Total Protein 6.2 L Albumin 2.9 L Prealbumin Triglycerides Cholesterol LDL Cholesterol Direct HDL Cholesterol Urine pH Urine WBC (Auto) Urine Creatinine Urine Total Protein Fluid Total Protein Vancomycin Trough Rheumatoid Factor Complement C4 Miscellaneous Test Crossmatch 09/13/16 09/14/16 09/14/16 23:23 04:06 04:07 WBC 29.4 H RBC Hgb 8.9 L Hct 27.3 L MCV 75 L MCH 24 L MCHC RDW 19.1 H Plt Count Lymph % (Auto) [place] % (Auto) Lymph # [place] # Baso # Seg Neutrophils % Seg Neuts % (Manual) 84.0 H Lymphocytes % (Manual) 6.0 L Monocytes % (Manual) 9.0 H Eosinophils % (Manual) Basophils % (Manual) Nucleated RBC % Seg Neutrophils # Seg Neutrophils # Man 24.7 H Lymphocytes # (Manual) Monocytes # (Manual) 2.6 H Eosinophils # (Manual) Basophils # (Manual) PT INR Fibrinogen dRVVT Confirm Interp Factor V Activity POC ABG pH 7.342 L POC ABG pCO2 POC ABG pO2 116 H ABG pO2 ABG HCO3 ABG Base Excess ABG Hemoglobin Oxyhemoglobin Sodium Potassium Chloride Carbon Dioxide BUN Creatinine Glucose POC Glucose 154 H Lactic Acid Calcium Phosphorus Magnesium Direct Bilirubin AST ALT Alkaline Phosphatase Lactate Dehydrogenase Troponin T C-Reactive Protein Total Protein Albumin Prealbumin Triglycerides Cholesterol LDL Cholesterol Direct HDL Cholesterol Urine pH Urine WBC (Auto) Urine Creatinine Urine Total Protein Fluid Total Protein Vancomycin Trough Rheumatoid Factor Complement C4 Miscellaneous Test Crossmatch 09/14/16 09/14/16 09/14/16 04:07 05:29 12:19 WBC RBC Hgb Hct MCV MCH MCHC RDW Plt Count Lymph % (Auto) [place] % (Auto) Lymph # [place] # Baso # Seg Neutrophils % Seg Neuts % (Manual) Lymphocytes % (Manual) Monocytes % (Manual) Eosinophils % (Manual) Basophils % (Manual) Nucleated RBC % Seg Neutrophils # Seg Neutrophils # Man Lymphocytes # (Manual) Monocytes # (Manual) Eosinophils # (Manual) Basophils # (Manual) PT INR Fibrinogen dRVVT Confirm Interp Factor V Activity POC ABG pH POC ABG pCO2 POC ABG pO2 ABG pO2 ABG HCO3 ABG Base Excess ABG Hemoglobin Oxyhemoglobin Sodium 136 L Potassium Chloride Carbon Dioxide 18 L BUN 121 H Creatinine 2.8 H Glucose 214 H POC Glucose 239 H 181 H Lactic Acid Calcium Phosphorus Magnesium Direct Bilirubin AST ALT Alkaline Phosphatase Lactate Dehydrogenase Troponin T C-Reactive Protein Total Protein Albumin Prealbumin Triglycerides Cholesterol LDL Cholesterol Direct HDL Cholesterol Urine pH Urine WBC (Auto) Urine Creatinine Urine Total Protein Fluid Total Protein Vancomycin Trough Rheumatoid Factor Complement C4 Miscellaneous Test Crossmatch 09/14/16 09/14/16 09/15/16 18:12 23:37 05:00 WBC 26.1 H RBC 3.05 L Hgb 7.2 L Hct 22.9 L MCV 75 L MCH 24 L MCHC RDW 19.0 H Plt Count Lymph % (Auto) [place] % (Auto) Lymph # [place] # Baso # Seg Neutrophils % Seg Neuts % (Manual) Lymphocytes % (Manual) Monocytes % (Manual) Eosinophils % (Manual) Basophils % (Manual) Nucleated RBC % Seg Neutrophils # Seg Neutrophils # Man Lymphocytes # (Manual) Monocytes # (Manual) Eosinophils # (Manual) Basophils # (Manual) PT INR Fibrinogen dRVVT Confirm Interp Factor V Activity POC ABG pH POC ABG pCO2 POC ABG pO2 ABG pO2 ABG HCO3 ABG Base Excess ABG Hemoglobin Oxyhemoglobin Sodium Potassium Chloride Carbon Dioxide BUN Creatinine Glucose POC Glucose 266 H 154 H Lactic Acid Calcium Phosphorus Magnesium Direct Bilirubin AST ALT Alkaline Phosphatase Lactate Dehydrogenase Troponin T C-Reactive Protein Total Protein Albumin Prealbumin Triglycerides Cholesterol LDL Cholesterol Direct HDL Cholesterol Urine pH Urine WBC (Auto) Urine Creatinine Urine Total Protein Fluid Total Protein Vancomycin Trough Rheumatoid Factor Complement C4 Miscellaneous Test Crossmatch 09/15/16 09/15/16 09/15/16 05:00 05:17 12:45 WBC RBC Hgb Hct MCV MCH MCHC RDW Plt Count Lymph % (Auto) [place] % (Auto) Lymph # [place] # Baso # Seg Neutrophils % Seg Neuts % (Manual) Lymphocytes % (Manual) Monocytes % (Manual) Eosinophils % (Manual) Basophils % (Manual) Nucleated RBC % Seg Neutrophils # Seg Neutrophils # Man Lymphocytes # (Manual) Monocytes # (Manual) Eosinophils # (Manual) Basophils # (Manual) PT INR Fibrinogen dRVVT Confirm Interp Factor V Activity POC ABG pH POC ABG pCO2 POC ABG pO2 ABG pO2 ABG HCO3 ABG Base Excess ABG Hemoglobin Oxyhemoglobin Sodium Potassium 5.2 H Chloride Carbon Dioxide 18 L BUN 139 H Creatinine 3.7 H Glucose 227 H POC Glucose 226 H 244 H Lactic Acid Calcium 8.3 L Phosphorus Magnesium Direct Bilirubin AST ALT Alkaline Phosphatase Lactate Dehydrogenase Troponin T C-Reactive Protein Total Protein Albumin Prealbumin Triglycerides Cholesterol LDL Cholesterol Direct HDL Cholesterol Urine pH Urine WBC (Auto) Urine Creatinine Urine Total Protein Fluid Total Protein Vancomycin Trough Rheumatoid Factor Complement C4 Miscellaneous Test Crossmatch 09/15/16 09/15/16 09/15/16 14:32 17:33 23:35 WBC RBC Hgb Hct MCV MCH MCHC RDW Plt Count Lymph % (Auto) [place] % (Auto) Lymph # [place] # Baso # Seg Neutrophils % Seg Neuts % (Manual) Lymphocytes % (Manual) Monocytes % (Manual) Eosinophils % (Manual) Basophils % (Manual) Nucleated RBC % Seg Neutrophils # Seg Neutrophils # Man Lymphocytes # (Manual) Monocytes # (Manual) Eosinophils # (Manual) Basophils # (Manual) PT INR Fibrinogen dRVVT Confirm Interp Factor V Activity POC ABG pH POC ABG pCO2 27.7 L POC ABG pO2 120 H ABG pO2 ABG HCO3 ABG Base Excess ABG Hemoglobin Oxyhemoglobin Sodium Potassium Chloride Carbon Dioxide BUN Creatinine Glucose POC Glucose 232 H 167 H Lactic Acid Calcium Phosphorus Magnesium Direct Bilirubin AST ALT Alkaline Phosphatase Lactate Dehydrogenase Troponin T C-Reactive Protein Total Protein Albumin Prealbumin Triglycerides Cholesterol LDL Cholesterol Direct HDL Cholesterol Urine pH Urine WBC (Auto) Urine Creatinine Urine Total Protein Fluid Total Protein Vancomycin Trough Rheumatoid Factor Complement C4 Miscellaneous Test Crossmatch 09/16/16 09/16/16 09/16/16 03:58 10:27 10:27 WBC 19.0 H RBC 2.77 L Hgb 6.5 L Hct 20.9 L MCV 76 L MCH 23 L MCHC RDW 19.3 H Plt Count Lymph % (Auto) 11.0 L [place] % (Auto) Lymph # [place] # 1.1 H Baso # Seg Neutrophils % 82.5 H Seg Neuts % (Manual) Lymphocytes % (Manual) Monocytes % (Manual) Eosinophils % (Manual) Basophils % (Manual) Nucleated RBC % Seg Neutrophils # 15.7 H Seg Neutrophils # Man Lymphocytes # (Manual) Monocytes # (Manual) Eosinophils # (Manual) Basophils # (Manual) PT INR Fibrinogen dRVVT Confirm Interp Factor V Activity POC ABG pH POC ABG pCO2 POC ABG pO2 ABG pO2 ABG HCO3 ABG Base Excess ABG Hemoglobin Oxyhemoglobin Sodium Potassium Chloride 109.3 H Carbon Dioxide 18 L BUN 139 H Creatinine 4.1 H Glucose 144 H POC Glucose 146 H Lactic Acid Calcium 8.1 L Phosphorus Magnesium Direct Bilirubin AST ALT Alkaline Phosphatase Lactate Dehydrogenase Troponin T C-Reactive Protein Total Protein Albumin Prealbumin Triglycerides Cholesterol LDL Cholesterol Direct HDL Cholesterol Urine pH Urine WBC (Auto) Urine Creatinine Urine Total Protein Fluid Total Protein Vancomycin Trough Rheumatoid Factor Complement C4 Miscellaneous Test Crossmatch 09/16/16 09/16/16 09/16/16 12:04 12:10 13:55 WBC RBC Hgb Hct MCV MCH MCHC RDW Plt Count Lymph % (Auto) [place] % (Auto) Lymph # [place] # Baso # Seg Neutrophils % Seg Neuts % (Manual) Lymphocytes % (Manual) Monocytes % (Manual) Eosinophils % (Manual) Basophils % (Manual) Nucleated RBC % Seg Neutrophils # Seg Neutrophils # Man Lymphocytes # (Manual) Monocytes # (Manual) Eosinophils # (Manual) Basophils # (Manual) PT INR Fibrinogen dRVVT Confirm Interp Factor V Activity POC ABG pH POC ABG pCO2 32.9 L POC ABG pO2 ABG pO2 ABG HCO3 ABG Base Excess ABG Hemoglobin Oxyhemoglobin Sodium Potassium Chloride Carbon Dioxide BUN Creatinine Glucose POC Glucose 185 H Lactic Acid Calcium Phosphorus Magnesium Direct Bilirubin AST ALT Alkaline Phosphatase Lactate Dehydrogenase Troponin T C-Reactive Protein Total Protein Albumin Prealbumin Triglycerides Cholesterol LDL Cholesterol Direct HDL Cholesterol Urine pH Urine WBC (Auto) Urine Creatinine Urine Total Protein Fluid Total Protein Vancomycin Trough Rheumatoid Factor Complement C4 Miscellaneous Test Crossmatch See Detail 09/16/16 09/16/16 09/16/16 17:55 19:19 23:48 WBC RBC Hgb Hct MCV MCH MCHC RDW Plt Count Lymph % (Auto) [place] % (Auto) Lymph # [place] # Baso # Seg Neutrophils % Seg Neuts % (Manual) Lymphocytes % (Manual) Monocytes % (Manual) Eosinophils % (Manual) Basophils % (Manual) Nucleated RBC % Seg Neutrophils # Seg Neutrophils # Man Lymphocytes # (Manual) Monocytes # (Manual) Eosinophils # (Manual) Basophils # (Manual) PT INR Fibrinogen dRVVT Confirm Interp Factor V Activity POC ABG pH POC ABG pCO2 POC ABG pO2 ABG pO2 ABG HCO3 ABG Base Excess ABG Hemoglobin Oxyhemoglobin Sodium Potassium Chloride Carbon Dioxide BUN Creatinine Glucose POC Glucose 222 H 107 H Lactic Acid Calcium Phosphorus Magnesium Direct Bilirubin AST ALT Alkaline Phosphatase Lactate Dehydrogenase Troponin T C-Reactive Protein Total Protein Albumin Prealbumin Triglycerides Cholesterol LDL Cholesterol Direct HDL Cholesterol Urine pH Urine WBC (Auto) Urine Creatinine 47.4 H Urine Total Protein 16 H Fluid Total Protein Vancomycin Trough Rheumatoid Factor Complement C4 Miscellaneous Test Crossmatch 09/17/16 09/17/16 09/17/16 03:45 03:45 04:55 WBC 19.6 H RBC 3.41 L Hgb 8.5 L Hct 26.7 L MCV 78 L MCH 25 L MCHC RDW 19.9 H Plt Count Lymph % (Auto) 9.3 L [place] % (Auto) Lymph # [place] # 1.2 H Baso # Seg Neutrophils % 83.9 H Seg Neuts % (Manual) Lymphocytes % (Manual) Monocytes % (Manual) Eosinophils % (Manual) Basophils % (Manual) Nucleated RBC % Seg Neutrophils # 16.4 H Seg Neutrophils # Man Lymphocytes # (Manual) Monocytes # (Manual) Eosinophils # (Manual) Basophils # (Manual) PT INR Fibrinogen dRVVT Confirm Interp Factor V Activity POC ABG pH POC ABG pCO2 POC ABG pO2 ABG pO2 ABG HCO3 ABG Base Excess ABG Hemoglobin Oxyhemoglobin Sodium 146 H Potassium 5.1 H Chloride 110.9 H Carbon Dioxide 16 L BUN 146 H Creatinine 4.0 H Glucose 108 H POC Glucose 133 H Lactic Acid Calcium Phosphorus Magnesium 3.00 H Direct Bilirubin AST ALT Alkaline Phosphatase Lactate Dehydrogenase Troponin T C-Reactive Protein Total Protein Albumin Prealbumin Triglycerides Cholesterol LDL Cholesterol Direct HDL Cholesterol Urine pH Urine WBC (Auto) Urine Creatinine Urine Total Protein Fluid Total Protein Vancomycin Trough Rheumatoid Factor Complement C4 Miscellaneous Test Crossmatch 09/17/16 09/17/16 09/17/16 11:15 17:33 23:47 WBC RBC Hgb Hct MCV MCH MCHC RDW Plt Count Lymph % (Auto) [place] % (Auto) Lymph # [place] # Baso # Seg Neutrophils % Seg Neuts % (Manual) Lymphocytes % (Manual) Monocytes % (Manual) Eosinophils % (Manual) Basophils % (Manual) Nucleated RBC % Seg Neutrophils # Seg Neutrophils # Man Lymphocytes # (Manual) Monocytes # (Manual) Eosinophils # (Manual) Basophils # (Manual) PT INR Fibrinogen dRVVT Confirm Interp Factor V Activity POC ABG pH POC ABG pCO2 POC ABG pO2 ABG pO2 ABG HCO3 ABG Base Excess ABG Hemoglobin Oxyhemoglobin Sodium Potassium Chloride Carbon Dioxide BUN Creatinine Glucose POC Glucose 176 H 246 H 148 H Lactic Acid Calcium Phosphorus Magnesium Direct Bilirubin AST ALT Alkaline Phosphatase Lactate Dehydrogenase Troponin T C-Reactive Protein Total Protein Albumin Prealbumin Triglycerides Cholesterol LDL Cholesterol Direct HDL Cholesterol Urine pH Urine WBC (Auto) Urine Creatinine Urine Total Protein Fluid Total Protein Vancomycin Trough Rheumatoid Factor Complement C4 Miscellaneous Test Crossmatch 09/18/16 09/18/16 09/18/16 05:33 08:31 08:31 WBC 18.0 H RBC 3.17 L Hgb 9.0 L Hct 25.7 L MCV MCH MCHC 35 H RDW 20.4 H Plt Count Lymph % (Auto) [place] % (Auto) Lymph # [place] # Baso # Seg Neutrophils % Seg Neuts % (Manual) Lymphocytes % (Manual) Monocytes % (Manual) Eosinophils % (Manual) Basophils % (Manual) Nucleated RBC % Seg Neutrophils # Seg Neutrophils # Man Lymphocytes # (Manual) Monocytes # (Manual) Eosinophils # (Manual) Basophils # (Manual) PT INR Fibrinogen dRVVT Confirm Interp Factor V Activity POC ABG pH POC ABG pCO2 POC ABG pO2 ABG pO2 ABG HCO3 ABG Base Excess ABG Hemoglobin Oxyhemoglobin Sodium Potassium Chloride Carbon Dioxide 15 L BUN 124 H Creatinine 3.8 H Glucose POC Glucose 120 H Lactic Acid Calcium 8.1 L Phosphorus Magnesium Direct Bilirubin AST ALT Alkaline Phosphatase Lactate Dehydrogenase Troponin T C-Reactive Protein Total Protein Albumin Prealbumin Triglycerides Cholesterol LDL Cholesterol Direct HDL Cholesterol Urine pH Urine WBC (Auto) Urine Creatinine Urine Total Protein Fluid Total Protein Vancomycin Trough Rheumatoid Factor Complement C4 Miscellaneous Test Crossmatch 09/18/16 09/18/16 09/18/16 12:03 15:34 17:50 WBC RBC Hgb Hct MCV MCH MCHC RDW Plt Count Lymph % (Auto) [place] % (Auto) Lymph # [place] # Baso # Seg Neutrophils % Seg Neuts % (Manual) Lymphocytes % (Manual) Monocytes % (Manual) Eosinophils % (Manual) Basophils % (Manual) Nucleated RBC % Seg Neutrophils # Seg Neutrophils # Man Lymphocytes # (Manual) Monocytes # (Manual) Eosinophils # (Manual) Basophils # (Manual) PT INR Fibrinogen dRVVT Confirm Interp Factor V Activity POC ABG pH POC ABG pCO2 25.7 L POC ABG pO2 66 L ABG pO2 ABG HCO3 ABG Base Excess ABG Hemoglobin Oxyhemoglobin Sodium Potassium Chloride Carbon Dioxide BUN Creatinine Glucose POC Glucose 156 H 220 H Lactic Acid Calcium Phosphorus Magnesium Direct Bilirubin AST ALT Alkaline Phosphatase Lactate Dehydrogenase Troponin T C-Reactive Protein Total Protein Albumin Prealbumin Triglycerides Cholesterol LDL Cholesterol Direct HDL Cholesterol Urine pH Urine WBC (Auto) Urine Creatinine Urine Total Protein Fluid Total Protein Vancomycin Trough Rheumatoid Factor Complement C4 Miscellaneous Test Crossmatch 09/19/16 09/19/16 09/19/16 06:21 09:50 09:50 WBC 17.1 H RBC 3.49 L Hgb 9.0 L Hct 28.1 L MCV MCH 26 L MCHC RDW 20.8 H Plt Count Lymph % (Auto) 11.5 L [place] % (Auto) 7.5 H Lymph # [place] # 1.3 H Baso # Seg Neutrophils % 79.8 H Seg Neuts % (Manual) Lymphocytes % (Manual) Monocytes % (Manual) Eosinophils % (Manual) Basophils % (Manual) Nucleated RBC % Seg Neutrophils # 13.7 H Seg Neutrophils # Man Lymphocytes # (Manual) Monocytes # (Manual) Eosinophils # (Manual) Basophils # (Manual) PT INR Fibrinogen dRVVT Confirm Interp Factor V Activity POC ABG pH POC ABG pCO2 POC ABG pO2 ABG pO2 ABG HCO3 ABG Base Excess ABG Hemoglobin Oxyhemoglobin Sodium Potassium Chloride 108.6 H Carbon Dioxide 15 L BUN 125 H Creatinine 4.1 H Glucose 124 H POC Glucose 119 H Lactic Acid Calcium Phosphorus Magnesium Direct Bilirubin AST ALT Alkaline Phosphatase Lactate Dehydrogenase Troponin T C-Reactive Protein Total Protein Albumin Prealbumin Triglycerides Cholesterol LDL Cholesterol Direct HDL Cholesterol Urine pH Urine WBC (Auto) Urine Creatinine Urine Total Protein Fluid Total Protein Vancomycin Trough Rheumatoid Factor Complement C4 Miscellaneous Test Crossmatch 09/19/16 09/19/16 09/19/16 11:25 17:53 23:36 WBC RBC Hgb Hct MCV MCH MCHC RDW Plt Count Lymph % (Auto) [place] % (Auto) Lymph # [place] # Baso # Seg Neutrophils % Seg Neuts % (Manual) Lymphocytes % (Manual) Monocytes % (Manual) Eosinophils % (Manual) Basophils % (Manual) Nucleated RBC % Seg Neutrophils # Seg Neutrophils # Man Lymphocytes # (Manual) Monocytes # (Manual) Eosinophils # (Manual) Basophils # (Manual) PT INR Fibrinogen dRVVT Confirm Interp Factor V Activity POC ABG pH POC ABG pCO2 POC ABG pO2 ABG pO2 ABG HCO3 ABG Base Excess ABG Hemoglobin Oxyhemoglobin Sodium Potassium Chloride Carbon Dioxide BUN Creatinine Glucose POC Glucose 160 H 245 H 121 H Lactic Acid Calcium Phosphorus Magnesium Direct Bilirubin AST ALT Alkaline Phosphatase Lactate Dehydrogenase Troponin T C-Reactive Protein Total Protein Albumin Prealbumin Triglycerides Cholesterol LDL Cholesterol Direct HDL Cholesterol Urine pH Urine WBC (Auto) Urine Creatinine Urine Total Protein Fluid Total Protein Vancomycin Trough Rheumatoid Factor Complement C4 Miscellaneous Test Crossmatch 09/20/16 09/20/16 09/20/16 04:10 04:10 04:10 WBC 17.0 H RBC 3.21 L Hgb 8.2 L Hct 25.5 L MCV MCH 26 L MCHC RDW 20.9 H Plt Count Lymph % (Auto) [place] % (Auto) Lymph # [place] # Baso # Seg Neutrophils % Seg Neuts % (Manual) Lymphocytes % (Manual) Monocytes % (Manual) Eosinophils % (Manual) Basophils % (Manual) Nucleated RBC % Seg Neutrophils # Seg Neutrophils # Man Lymphocytes # (Manual) Monocytes # (Manual) Eosinophils # (Manual) Basophils # (Manual) PT INR Fibrinogen dRVVT Confirm Interp Factor V Activity POC ABG pH POC ABG pCO2 POC ABG pO2 ABG pO2 ABG HCO3 ABG Base Excess ABG Hemoglobin Oxyhemoglobin Sodium Potassium Chloride 111.0 H Carbon Dioxide 16 L BUN 129 H Creatinine 3.7 H Glucose 115 H POC Glucose Lactic Acid Calcium 8.2 L Phosphorus Magnesium Direct Bilirubin AST ALT Alkaline Phosphatase Lactate Dehydrogenase Troponin T C-Reactive Protein Total Protein Albumin Prealbumin Triglycerides 243 H Cholesterol LDL Cholesterol Direct HDL Cholesterol Urine pH Urine WBC (Auto) Urine Creatinine Urine Total Protein Fluid Total Protein Vancomycin Trough Rheumatoid Factor Complement C4 Miscellaneous Test Crossmatch 09/20/16 09/20/16 09/20/16 05:40 11:52 16:50 WBC RBC Hgb Hct MCV MCH MCHC RDW Plt Count Lymph % (Auto) [place] % (Auto) Lymph # [place] # Baso # Seg Neutrophils % Seg Neuts % (Manual) Lymphocytes % (Manual) Monocytes % (Manual) Eosinophils % (Manual) Basophils % (Manual) Nucleated RBC % Seg Neutrophils # Seg Neutrophils # Man Lymphocytes # (Manual) Monocytes # (Manual) Eosinophils # (Manual) Basophils # (Manual) PT INR Fibrinogen dRVVT Confirm Interp Factor V Activity POC ABG pH POC ABG pCO2 POC ABG pO2 ABG pO2 ABG HCO3 ABG Base Excess ABG Hemoglobin Oxyhemoglobin Sodium Potassium Chloride Carbon Dioxide BUN Creatinine Glucose POC Glucose 131 H 183 H 236 H Lactic Acid Calcium Phosphorus Magnesium Direct Bilirubin AST ALT Alkaline Phosphatase Lactate Dehydrogenase Troponin T C-Reactive Protein Total Protein Albumin Prealbumin Triglycerides Cholesterol LDL Cholesterol Direct HDL Cholesterol Urine pH Urine WBC (Auto) Urine Creatinine Urine Total Protein Fluid Total Protein Vancomycin Trough Rheumatoid Factor Complement C4 Miscellaneous Test Crossmatch 09/20/16 09/21/16 09/21/16 23:51 03:30 04:44 WBC RBC Hgb Hct MCV MCH MCHC RDW Plt Count Lymph % (Auto) [place] % (Auto) Lymph # [place] # Baso # Seg Neutrophils % Seg Neuts % (Manual) Lymphocytes % (Manual) Monocytes % (Manual) Eosinophils % (Manual) Basophils % (Manual) Nucleated RBC % Seg Neutrophils # Seg Neutrophils # Man Lymphocytes # (Manual) Monocytes # (Manual) Eosinophils # (Manual) Basophils # (Manual) PT INR Fibrinogen dRVVT Confirm Interp Factor V Activity POC ABG pH POC ABG pCO2 POC ABG pO2 ABG pO2 ABG HCO3 ABG Base Excess ABG Hemoglobin Oxyhemoglobin Sodium Potassium Chloride Carbon Dioxide BUN Creatinine Glucose POC Glucose 114 H 141 H Lactic Acid Calcium Phosphorus Magnesium 2.70 H Direct Bilirubin AST ALT Alkaline Phosphatase Lactate Dehydrogenase Troponin T C-Reactive Protein Total Protein Albumin Prealbumin Triglycerides Cholesterol LDL Cholesterol Direct HDL Cholesterol Urine pH Urine WBC (Auto) Urine Creatinine Urine Total Protein Fluid Total Protein Vancomycin Trough Rheumatoid Factor Complement C4 Miscellaneous Test Crossmatch 09/21/16 09/21/16 09/21/16 07:45 07:45 10:01 WBC 13.8 H RBC 2.94 L Hgb 7.5 L Hct 23.5 L MCV MCH 26 L MCHC RDW 21.2 H Plt Count Lymph % (Auto) 6.9 L [place] % (Auto) 9.4 H Lymph # 0.9 L [place] # 1.3 H Baso # Seg Neutrophils % 83.2 H Seg Neuts % (Manual) Lymphocytes % (Manual) Monocytes % (Manual) Eosinophils % (Manual) Basophils % (Manual) Nucleated RBC % Seg Neutrophils # 11.5 H Seg Neutrophils # Man Lymphocytes # (Manual) Monocytes # (Manual) Eosinophils # (Manual) Basophils # (Manual) PT INR Fibrinogen dRVVT Confirm Interp Factor V Activity POC ABG pH 7.308 L POC ABG pCO2 31.9 L POC ABG pO2 148 H ABG pO2 ABG HCO3 ABG Base Excess ABG Hemoglobin Oxyhemoglobin Sodium 147 H Potassium Chloride 114.2 H Carbon Dioxide 15 L BUN 120 H Creatinine 3.9 H Glucose 156 H POC Glucose Lactic Acid Calcium 8.2 L Phosphorus Magnesium Direct Bilirubin AST ALT Alkaline Phosphatase Lactate Dehydrogenase Troponin T C-Reactive Protein Total Protein Albumin Prealbumin Triglycerides Cholesterol LDL Cholesterol Direct HDL Cholesterol Urine pH Urine WBC (Auto) Urine Creatinine Urine Total Protein Fluid Total Protein Vancomycin Trough Rheumatoid Factor Complement C4 Miscellaneous Test Crossmatch 09/21/16 09/21/16 09/21/16 12:00 12:03 13:00 WBC RBC Hgb Hct MCV MCH MCHC RDW Plt Count Lymph % (Auto) [place] % (Auto) Lymph # [place] # Baso # Seg Neutrophils % Seg Neuts % (Manual) Lymphocytes % (Manual) Monocytes % (Manual) Eosinophils % (Manual) Basophils % (Manual) Nucleated RBC % Seg Neutrophils # Seg Neutrophils # Man Lymphocytes # (Manual) Monocytes # (Manual) Eosinophils # (Manual) Basophils # (Manual) PT INR Fibrinogen dRVVT Confirm Interp Factor V Activity POC ABG pH POC ABG pCO2 POC ABG pO2 ABG pO2 ABG HCO3 ABG Base Excess ABG Hemoglobin Oxyhemoglobin Sodium Potassium Chloride Carbon Dioxide BUN Creatinine Glucose POC Glucose 163 H Lactic Acid Calcium Phosphorus Magnesium Direct Bilirubin AST ALT Alkaline Phosphatase Lactate Dehydrogenase Troponin T C-Reactive Protein Total Protein Albumin Prealbumin Triglycerides Cholesterol LDL Cholesterol Direct HDL Cholesterol Urine pH Urine WBC (Auto) Urine Creatinine 54.8 H Urine Total Protein Fluid Total Protein Vancomycin Trough 2.3 L Rheumatoid Factor Complement C4 Miscellaneous Test Crossmatch 09/21/16 09/21/16 09/22/16 16:51 23:17 06:27 WBC RBC Hgb Hct MCV MCH MCHC RDW Plt Count Lymph % (Auto) [place] % (Auto) Lymph # [place] # Baso # Seg Neutrophils % Seg Neuts % (Manual) Lymphocytes % (Manual) Monocytes % (Manual) Eosinophils % (Manual) Basophils % (Manual) Nucleated RBC % Seg Neutrophils # Seg Neutrophils # Man Lymphocytes # (Manual) Monocytes # (Manual) Eosinophils # (Manual) Basophils # (Manual) PT INR Fibrinogen dRVVT Confirm Interp Factor V Activity POC ABG pH POC ABG pCO2 POC ABG pO2 ABG pO2 ABG HCO3 ABG Base Excess ABG Hemoglobin Oxyhemoglobin Sodium Potassium Chloride Carbon Dioxide BUN Creatinine Glucose POC Glucose 206 H 114 H 115 H Lactic Acid Calcium Phosphorus Magnesium Direct Bilirubin AST ALT Alkaline Phosphatase Lactate Dehydrogenase Troponin T C-Reactive Protein Total Protein Albumin Prealbumin Triglycerides Cholesterol LDL Cholesterol Direct HDL Cholesterol Urine pH Urine WBC (Auto) Urine Creatinine Urine Total Protein Fluid Total Protein Vancomycin Trough Rheumatoid Factor Complement C4 Miscellaneous Test Crossmatch 09/22/16 09/22/16 09/22/16 07:50 07:50 12:00 WBC 17.8 H RBC 3.04 L Hgb 8.0 L Hct 24.7 L MCV MCH 26 L MCHC RDW 21.6 H Plt Count Lymph % (Auto) [place] % (Auto) Lymph # [place] # Baso # Seg Neutrophils % Seg Neuts % (Manual) Lymphocytes % (Manual) Monocytes % (Manual) Eosinophils % (Manual) Basophils % (Manual) Nucleated RBC % Seg Neutrophils # Seg Neutrophils # Man Lymphocytes # (Manual) Monocytes # (Manual) Eosinophils # (Manual) Basophils # (Manual) PT INR Fibrinogen dRVVT Confirm Interp Factor V Activity POC ABG pH POC ABG pCO2 POC ABG pO2 ABG pO2 ABG HCO3 ABG Base Excess ABG Hemoglobin Oxyhemoglobin Sodium 150 H Potassium Chloride 118.2 H Carbon Dioxide 14 L BUN 111 H Creatinine 3.7 H Glucose 157 H POC Glucose 183 H Lactic Acid Calcium Phosphorus Magnesium Direct Bilirubin AST ALT Alkaline Phosphatase Lactate Dehydrogenase Troponin T C-Reactive Protein Total Protein Albumin Prealbumin Triglycerides Cholesterol LDL Cholesterol Direct HDL Cholesterol Urine pH Urine WBC (Auto) Urine Creatinine Urine Total Protein Fluid Total Protein Vancomycin Trough Rheumatoid Factor Complement C4 Miscellaneous Test Crossmatch 09/22/16 09/22/16 09/23/16 17:29 23:10 05:00 WBC 19.2 H RBC 3.13 L Hgb 8.0 L Hct 25.2 L MCV MCH 26 L MCHC RDW 22.1 H Plt Count Lymph % (Auto) [place] % (Auto) Lymph # [place] # Baso # Seg Neutrophils % Seg Neuts % (Manual) 92.0 H Lymphocytes % (Manual) 3.0 L Monocytes % (Manual) Eosinophils % (Manual) Basophils % (Manual) Nucleated RBC % Seg Neutrophils # Seg Neutrophils # Man 17.7 H Lymphocytes # (Manual) 0.6 L Monocytes # (Manual) Eosinophils # (Manual) Basophils # (Manual) PT INR Fibrinogen dRVVT Confirm Interp Factor V Activity POC ABG pH POC ABG pCO2 POC ABG pO2 ABG pO2 ABG HCO3 ABG Base Excess ABG Hemoglobin Oxyhemoglobin Sodium Potassium Chloride Carbon Dioxide BUN Creatinine Glucose POC Glucose 197 H 169 H Lactic Acid Calcium Phosphorus Magnesium Direct Bilirubin AST ALT Alkaline Phosphatase Lactate Dehydrogenase Troponin T C-Reactive Protein Total Protein Albumin Prealbumin Triglycerides Cholesterol LDL Cholesterol Direct HDL Cholesterol Urine pH Urine WBC (Auto) Urine Creatinine Urine Total Protein Fluid Total Protein Vancomycin Trough Rheumatoid Factor Complement C4 Miscellaneous Test Crossmatch 09/23/16 09/23/16 09/23/16 05:00 05:00 05:10 WBC RBC Hgb Hct MCV MCH MCHC RDW Plt Count Lymph % (Auto) [place] % (Auto) Lymph # [place] # Baso # Seg Neutrophils % Seg Neuts % (Manual) Lymphocytes % (Manual) Monocytes % (Manual) Eosinophils % (Manual) Basophils % (Manual) Nucleated RBC % Seg Neutrophils # Seg Neutrophils # Man Lymphocytes # (Manual) Monocytes # (Manual) Eosinophils # (Manual) Basophils # (Manual) PT INR Fibrinogen dRVVT Confirm Interp Factor V Activity POC ABG pH POC ABG pCO2 POC ABG pO2 ABG pO2 ABG HCO3 ABG Base Excess ABG Hemoglobin Oxyhemoglobin Sodium 147 H Potassium 3.2 L Chloride 115.7 H Carbon Dioxide 13 L BUN 111 H Creatinine 3.8 H Glucose 194 H POC Glucose 188 H Lactic Acid Calcium 7.3 L D Phosphorus Magnesium Direct Bilirubin AST ALT Alkaline Phosphatase Lactate Dehydrogenase Troponin T C-Reactive Protein 3.20 H Total Protein Albumin Prealbumin Triglycerides Cholesterol LDL Cholesterol Direct HDL Cholesterol Urine pH Urine WBC (Auto) Urine Creatinine Urine Total Protein Fluid Total Protein Vancomycin Trough Rheumatoid Factor Complement C4 Miscellaneous Test Crossmatch 09/23/16 09/23/16 09/23/16 11:37 12:29 18:01 WBC RBC Hgb Hct MCV MCH MCHC RDW Plt Count Lymph % (Auto) [place] % (Auto) Lymph # [place] # Baso # Seg Neutrophils % Seg Neuts % (Manual) Lymphocytes % (Manual) Monocytes % (Manual) Eosinophils % (Manual) Basophils % (Manual) Nucleated RBC % Seg Neutrophils # Seg Neutrophils # Man Lymphocytes # (Manual) Monocytes # (Manual) Eosinophils # (Manual) Basophils # (Manual) PT INR Fibrinogen dRVVT Confirm Interp Factor V Activity POC ABG pH POC ABG pCO2 18.9 L POC ABG pO2 143 H ABG pO2 ABG HCO3 ABG Base Excess ABG Hemoglobin Oxyhemoglobin Sodium Potassium Chloride Carbon Dioxide BUN Creatinine Glucose POC Glucose 153 H 108 H Lactic Acid Calcium Phosphorus Magnesium Direct Bilirubin AST ALT Alkaline Phosphatase Lactate Dehydrogenase Troponin T C-Reactive Protein Total Protein Albumin Prealbumin Triglycerides Cholesterol LDL Cholesterol Direct HDL Cholesterol Urine pH Urine WBC (Auto) Urine Creatinine Urine Total Protein Fluid Total Protein Vancomycin Trough Rheumatoid Factor Complement C4 Miscellaneous Test Crossmatch 09/23/16 09/23/16 09/24/16 21:19 23:43 05:16 WBC RBC Hgb Hct MCV MCH MCHC RDW Plt Count Lymph % (Auto) [place] % (Auto) Lymph # [place] # Baso # Seg Neutrophils % Seg Neuts % (Manual) Lymphocytes % (Manual) Monocytes % (Manual) Eosinophils % (Manual) Basophils % (Manual) Nucleated RBC % Seg Neutrophils # Seg Neutrophils # Man Lymphocytes # (Manual) Monocytes # (Manual) Eosinophils # (Manual) Basophils # (Manual) PT INR Fibrinogen dRVVT Confirm Interp Factor V Activity POC ABG pH POC ABG pCO2 17.3 L POC ABG pO2 112 H ABG pO2 ABG HCO3 ABG Base Excess ABG Hemoglobin Oxyhemoglobin Sodium Potassium Chloride Carbon Dioxide BUN Creatinine Glucose POC Glucose 143 H 164 H Lactic Acid Calcium Phosphorus Magnesium Direct Bilirubin AST ALT Alkaline Phosphatase Lactate Dehydrogenase Troponin T C-Reactive Protein Total Protein Albumin Prealbumin Triglycerides Cholesterol LDL Cholesterol Direct HDL Cholesterol Urine pH Urine WBC (Auto) Urine Creatinine Urine Total Protein Fluid Total Protein Vancomycin Trough Rheumatoid Factor Complement C4 Miscellaneous Test Crossmatch 09/24/16 09/24/16 09/24/16 05:21 11:58 17:06 WBC RBC Hgb Hct MCV MCH MCHC RDW Plt Count Lymph % (Auto) [place] % (Auto) Lymph # [place] # Baso # Seg Neutrophils % Seg Neuts % (Manual) Lymphocytes % (Manual) Monocytes % (Manual) Eosinophils % (Manual) Basophils % (Manual) Nucleated RBC % Seg Neutrophils # Seg Neutrophils # Man Lymphocytes # (Manual) Monocytes # (Manual) Eosinophils # (Manual) Basophils # (Manual) PT INR Fibrinogen dRVVT Confirm Interp Factor V Activity POC ABG pH POC ABG pCO2 POC ABG pO2 ABG pO2 ABG HCO3 ABG Base Excess ABG Hemoglobin Oxyhemoglobin Sodium Potassium Chloride Carbon Dioxide 10 L BUN 103 H Creatinine 4.3 H Glucose 163 H POC Glucose 173 H 167 H Lactic Acid Calcium 6.5 L Phosphorus Magnesium Direct Bilirubin AST ALT Alkaline Phosphatase Lactate Dehydrogenase Troponin T C-Reactive Protein Total Protein Albumin Prealbumin Triglycerides Cholesterol LDL Cholesterol Direct HDL Cholesterol Urine pH Urine WBC (Auto) Urine Creatinine Urine Total Protein Fluid Total Protein Vancomycin Trough Rheumatoid Factor Complement C4 Miscellaneous Test Crossmatch 09/24/16 09/24/16 09/24/16 20:15 21:02 23:48 WBC RBC Hgb Hct MCV MCH MCHC RDW Plt Count Lymph % (Auto) [place] % (Auto) Lymph # [place] # Baso # Seg Neutrophils % Seg Neuts % (Manual) Lymphocytes % (Manual) Monocytes % (Manual) Eosinophils % (Manual) Basophils % (Manual) Nucleated RBC % Seg Neutrophils # Seg Neutrophils # Man Lymphocytes # (Manual) Monocytes # (Manual) Eosinophils # (Manual) Basophils # (Manual) PT INR Fibrinogen dRVVT Confirm Interp Factor V Activity POC ABG pH 7.288 L POC ABG pCO2 30.2 L 21.5 L POC ABG pO2 32 L 39 L ABG pO2 ABG HCO3 ABG Base Excess ABG Hemoglobin Oxyhemoglobin Sodium Potassium Chloride Carbon Dioxide BUN Creatinine Glucose POC Glucose 109 H Lactic Acid Calcium Phosphorus Magnesium Direct Bilirubin AST ALT Alkaline Phosphatase Lactate Dehydrogenase Troponin T C-Reactive Protein Total Protein Albumin Prealbumin Triglycerides Cholesterol LDL Cholesterol Direct HDL Cholesterol Urine pH Urine WBC (Auto) Urine Creatinine Urine Total Protein Fluid Total Protein Vancomycin Trough Rheumatoid Factor Complement C4 Miscellaneous Test Crossmatch 09/25/16 09/25/16 09/25/16 04:20 04:20 04:20 WBC RBC 2.58 L Hgb 7.0 L Hct 21.0 L MCV MCH 27 L MCHC RDW 23.8 H Plt Count Lymph % (Auto) [place] % (Auto) Lymph # [place] # Baso # Seg Neutrophils % Seg Neuts % (Manual) Lymphocytes % (Manual) 12.0 L Monocytes % (Manual) Eosinophils % (Manual) 7.0 H Basophils % (Manual) 2.0 H Nucleated RBC % Seg Neutrophils # Seg Neutrophils # Man Lymphocytes # (Manual) 0.9 L Monocytes # (Manual) Eosinophils # (Manual) 0.5 H Basophils # (Manual) PT INR Fibrinogen dRVVT Confirm Interp Factor V Activity POC ABG pH POC ABG pCO2 POC ABG pO2 ABG pO2 ABG HCO3 ABG Base Excess ABG Hemoglobin Oxyhemoglobin Sodium Potassium Chloride Carbon Dioxide 15 L BUN 72 H Creatinine 3.8 H Glucose POC Glucose Lactic Acid Calcium 6.0 L Phosphorus 4.60 H Magnesium 1.60 L Direct Bilirubin AST ALT Alkaline Phosphatase Lactate Dehydrogenase Troponin T C-Reactive Protein Total Protein Albumin Prealbumin Triglycerides Cholesterol LDL Cholesterol Direct HDL Cholesterol Urine pH Urine WBC (Auto) Urine Creatinine Urine Total Protein Fluid Total Protein Vancomycin Trough Rheumatoid Factor Complement C4 Miscellaneous Test Crossmatch 09/25/16 09/25/16 09/25/16 04:57 08:02 10:30 WBC RBC Hgb Hct MCV MCH MCHC RDW Plt Count Lymph % (Auto) [place] % (Auto) Lymph # [place] # Baso # Seg Neutrophils % Seg Neuts % (Manual) Lymphocytes % (Manual) Monocytes % (Manual) Eosinophils % (Manual) Basophils % (Manual) Nucleated RBC % Seg Neutrophils # Seg Neutrophils # Man Lymphocytes # (Manual) Monocytes # (Manual) Eosinophils # (Manual) Basophils # (Manual) PT INR Fibrinogen dRVVT Confirm Interp Factor V Activity POC ABG pH POC ABG pCO2 24.7 L POC ABG pO2 152 H ABG pO2 ABG HCO3 ABG Base Excess ABG Hemoglobin Oxyhemoglobin Sodium Potassium Chloride Carbon Dioxide BUN Creatinine Glucose POC Glucose 113 H Lactic Acid Calcium Phosphorus Magnesium Direct Bilirubin AST ALT Alkaline Phosphatase Lactate Dehydrogenase Troponin T C-Reactive Protein Total Protein Albumin Prealbumin Triglycerides Cholesterol LDL Cholesterol Direct HDL Cholesterol Urine pH Urine WBC (Auto) Urine Creatinine Urine Total Protein Fluid Total Protein Vancomycin Trough Rheumatoid Factor Complement C4 Miscellaneous Test Crossmatch See Detail 09/25/16 09/25/16 09/25/16 12:05 17:44 23:47 WBC RBC Hgb Hct MCV MCH MCHC RDW Plt Count Lymph % (Auto) [place] % (Auto) Lymph # [place] # Baso # Seg Neutrophils % Seg Neuts % (Manual) Lymphocytes % (Manual) Monocytes % (Manual) Eosinophils % (Manual) Basophils % (Manual) Nucleated RBC % Seg Neutrophils # Seg Neutrophils # Man Lymphocytes # (Manual) Monocytes # (Manual) Eosinophils # (Manual) Basophils # (Manual) PT INR Fibrinogen dRVVT Confirm Interp Factor V Activity POC ABG pH POC ABG pCO2 POC ABG pO2 ABG pO2 ABG HCO3 ABG Base Excess ABG Hemoglobin Oxyhemoglobin Sodium Potassium Chloride Carbon Dioxide BUN Creatinine Glucose POC Glucose 117 H 119 H 150 H Lactic Acid Calcium Phosphorus Magnesium Direct Bilirubin AST ALT Alkaline Phosphatase Lactate Dehydrogenase Troponin T C-Reactive Protein Total Protein Albumin Prealbumin Triglycerides Cholesterol LDL Cholesterol Direct HDL Cholesterol Urine pH Urine WBC (Auto) Urine Creatinine Urine Total Protein Fluid Total Protein Vancomycin Trough Rheumatoid Factor Complement C4 Miscellaneous Test Crossmatch 09/26/16 09/26/16 09/26/16 04:25 04:25 04:25 WBC RBC 2.65 L Hgb 7.4 L Hct 21.6 L MCV MCH MCHC RDW 22.5 H Plt Count Lymph % (Auto) [place] % (Auto) Lymph # [place] # Baso # Seg Neutrophils % Seg Neuts % (Manual) Lymphocytes % (Manual) 6.0 L Monocytes % (Manual) Eosinophils % (Manual) 11.0 H Basophils % (Manual) Nucleated RBC % Seg Neutrophils # Seg Neutrophils # Man Lymphocytes # (Manual) 0.4 L Monocytes # (Manual) Eosinophils # (Manual) 0.6 H Basophils # (Manual) PT INR Fibrinogen dRVVT Confirm Interp Factor V Activity POC ABG pH POC ABG pCO2 POC ABG pO2 ABG pO2 ABG HCO3 ABG Base Excess ABG Hemoglobin Oxyhemoglobin Sodium Potassium Chloride 97.0 L Carbon Dioxide 19 L BUN 43 H Creatinine 2.6 H Glucose 130 H POC Glucose Lactic Acid 4.40 H* Calcium 6.7 L Phosphorus Magnesium Direct Bilirubin AST ALT Alkaline Phosphatase Lactate Dehydrogenase Troponin T C-Reactive Protein Total Protein Albumin Prealbumin Triglycerides Cholesterol LDL Cholesterol Direct HDL Cholesterol Urine pH Urine WBC (Auto) Urine Creatinine Urine Total Protein Fluid Total Protein Vancomycin Trough Rheumatoid Factor Complement C4 Miscellaneous Test Crossmatch 09/26/16 09/26/16 09/26/16 05:20 11:44 12:12 WBC RBC Hgb Hct MCV MCH MCHC RDW Plt Count Lymph % (Auto) [place] % (Auto) Lymph # [place] # Baso # Seg Neutrophils % Seg Neuts % (Manual) Lymphocytes % (Manual) Monocytes % (Manual) Eosinophils % (Manual) Basophils % (Manual) Nucleated RBC % Seg Neutrophils # Seg Neutrophils # Man Lymphocytes # (Manual) Monocytes # (Manual) Eosinophils # (Manual) Basophils # (Manual) PT INR Fibrinogen dRVVT Confirm Interp Factor V Activity POC ABG pH POC ABG pCO2 27.0 L POC ABG pO2 69 L ABG pO2 ABG HCO3 ABG Base Excess ABG Hemoglobin Oxyhemoglobin Sodium Potassium Chloride Carbon Dioxide BUN Creatinine Glucose POC Glucose 121 H 128 H Lactic Acid Calcium Phosphorus Magnesium Direct Bilirubin AST ALT Alkaline Phosphatase Lactate Dehydrogenase Troponin T C-Reactive Protein Total Protein Albumin Prealbumin Triglycerides Cholesterol LDL Cholesterol Direct HDL Cholesterol Urine pH Urine WBC (Auto) Urine Creatinine Urine Total Protein Fluid Total Protein Vancomycin Trough Rheumatoid Factor Complement C4 Miscellaneous Test Crossmatch 09/26/16 09/26/16 09/27/16 18:31 23:40 08:20 WBC RBC Hgb Hct MCV MCH MCHC RDW Plt Count Lymph % (Auto) [place] % (Auto) Lymph # [place] # Baso # Seg Neutrophils % Seg Neuts % (Manual) Lymphocytes % (Manual) Monocytes % (Manual) Eosinophils % (Manual) Basophils % (Manual) Nucleated RBC % Seg Neutrophils # Seg Neutrophils # Man Lymphocytes # (Manual) Monocytes # (Manual) Eosinophils # (Manual) Basophils # (Manual) PT INR Fibrinogen dRVVT Confirm Interp Factor V Activity POC ABG pH POC ABG pCO2 POC ABG pO2 ABG pO2 ABG HCO3 ABG Base Excess ABG Hemoglobin Oxyhemoglobin Sodium Potassium Chloride Carbon Dioxide BUN Creatinine Glucose POC Glucose 120 H 133 H Lactic Acid 4.10 H* Calcium Phosphorus Magnesium Direct Bilirubin AST ALT Alkaline Phosphatase Lactate Dehydrogenase Troponin T C-Reactive Protein Total Protein Albumin Prealbumin Triglycerides Cholesterol LDL Cholesterol Direct HDL Cholesterol Urine pH Urine WBC (Auto) Urine Creatinine Urine Total Protein Fluid Total Protein Vancomycin Trough Rheumatoid Factor Complement C4 Miscellaneous Test Crossmatch 09/27/16 09/27/16 09/27/16 11:23 15:00 18:15 WBC RBC Hgb Hct MCV MCH MCHC RDW Plt Count Lymph % (Auto) [place] % (Auto) Lymph # [place] # Baso # Seg Neutrophils % Seg Neuts % (Manual) Lymphocytes % (Manual) Monocytes % (Manual) Eosinophils % (Manual) Basophils % (Manual) Nucleated RBC % Seg Neutrophils # Seg Neutrophils # Man Lymphocytes # (Manual) Monocytes # (Manual) Eosinophils # (Manual) Basophils # (Manual) PT INR Fibrinogen dRVVT Confirm Interp Factor V Activity POC ABG pH 7.459 H POC ABG pCO2 27.1 L POC ABG pO2 140 H ABG pO2 ABG HCO3 ABG Base Excess ABG Hemoglobin Oxyhemoglobin Sodium Potassium Chloride Carbon Dioxide BUN Creatinine Glucose POC Glucose 114 H 127 H Lactic Acid Calcium Phosphorus Magnesium Direct Bilirubin AST ALT Alkaline Phosphatase Lactate Dehydrogenase Troponin T C-Reactive Protein Total Protein Albumin Prealbumin Triglycerides Cholesterol LDL Cholesterol Direct HDL Cholesterol Urine pH Urine WBC (Auto) Urine Creatinine Urine Total Protein Fluid Total Protein Vancomycin Trough Rheumatoid Factor Complement C4 Miscellaneous Test Crossmatch 09/27/16 09/27/16 09/28/16 Unknown Unknown 03:45 WBC RBC 2.49 L Hgb 6.8 L Hct 20.7 L MCV MCH 27 L MCHC RDW 22.1 H Plt Count Lymph % (Auto) [place] % (Auto) Lymph # [place] # Baso # Seg Neutrophils % Seg Neuts % (Manual) 32.0 L Lymphocytes % (Manual) 12.0 L Monocytes % (Manual) 11.0 H Eosinophils % (Manual) 10.0 H Basophils % (Manual) Nucleated RBC % Seg Neutrophils # Seg Neutrophils # Man Lymphocytes # (Manual) 1.0 L Monocytes # (Manual) 0.9 H Eosinophils # (Manual) 0.8 H Basophils # (Manual) PT INR Fibrinogen dRVVT Confirm Interp Factor V Activity POC ABG pH POC ABG pCO2 POC ABG pO2 ABG pO2 ABG HCO3 ABG Base Excess ABG Hemoglobin Oxyhemoglobin Sodium 135 L 135 L Potassium 3.5 L Chloride 93.6 L 94.4 L Carbon Dioxide 17 L 21 L BUN 45 H 28 H Creatinine 3.3 H 2.5 H Glucose 106 H POC Glucose Lactic Acid Calcium 7.3 L 7.1 L Phosphorus Magnesium Direct Bilirubin AST ALT Alkaline Phosphatase Lactate Dehydrogenase Troponin T C-Reactive Protein Total Protein Albumin Prealbumin Triglycerides Cholesterol LDL Cholesterol Direct HDL Cholesterol Urine pH Urine WBC (Auto) Urine Creatinine Urine Total Protein Fluid Total Protein Vancomycin Trough Rheumatoid Factor Complement C4 Miscellaneous Test Crossmatch 09/28/16 09/28/16 09/28/16 03:45 07:25 11:58 WBC 13.3 H RBC 3.01 L Hgb 8.4 L Hct 25.0 L MCV MCH MCHC RDW 20.5 H Plt Count 128 L Lymph % (Auto) [place] % (Auto) Lymph # [place] # Baso # Seg Neutrophils % Seg Neuts % (Manual) Lymphocytes % (Manual) 7.0 L Monocytes % (Manual) Eosinophils % (Manual) 6.0 H Basophils % (Manual) Nucleated RBC % Seg Neutrophils # Seg Neutrophils # Man Lymphocytes # (Manual) 0.9 L Monocytes # (Manual) Eosinophils # (Manual) 0.8 H Basophils # (Manual) PT INR Fibrinogen dRVVT Confirm Interp Factor V Activity POC ABG pH POC ABG pCO2 POC ABG pO2 ABG pO2 ABG HCO3 ABG Base Excess ABG Hemoglobin Oxyhemoglobin Sodium Potassium Chloride Carbon Dioxide BUN Creatinine Glucose POC Glucose 121 H Lactic Acid 4.50 H* Calcium Phosphorus Magnesium Direct Bilirubin AST ALT Alkaline Phosphatase Lactate Dehydrogenase Troponin T C-Reactive Protein Total Protein Albumin Prealbumin Triglycerides Cholesterol LDL Cholesterol Direct HDL Cholesterol Urine pH Urine WBC (Auto) Urine Creatinine Urine Total Protein Fluid Total Protein Vancomycin Trough Rheumatoid Factor Complement C4 Miscellaneous Test Crossmatch 09/29/16 09/29/16 09/29/16 06:45 06:45 06:45 WBC 14.9 H RBC 2.74 L Hgb 7.6 L Hct 23.2 L MCV MCH MCHC RDW 20.5 H Plt Count 81 L Lymph % (Auto) [place] % (Auto) Lymph # [place] # Baso # Seg Neutrophils % Seg Neuts % (Manual) 81.0 H Lymphocytes % (Manual) 4.0 L Monocytes % (Manual) Eosinophils % (Manual) Basophils % (Manual) Nucleated RBC % Seg Neutrophils # Seg Neutrophils # Man 12.1 H Lymphocytes # (Manual) 0.6 L Monocytes # (Manual) Eosinophils # (Manual) Basophils # (Manual) PT INR Fibrinogen dRVVT Confirm Interp Factor V Activity POC ABG pH POC ABG pCO2 POC ABG pO2 ABG pO2 ABG HCO3 ABG Base Excess ABG Hemoglobin Oxyhemoglobin Sodium 133 L Potassium 3.4 L Chloride 92.5 L Carbon Dioxide 21 L BUN 33 H Creatinine 3.0 H Glucose POC Glucose Lactic Acid Calcium 6.6 L Phosphorus Magnesium 1.40 L Direct Bilirubin 0.9 H AST ALT Alkaline Phosphatase Lactate Dehydrogenase Troponin T C-Reactive Protein Total Protein 4.3 L Albumin 1.3 L Prealbumin Triglycerides Cholesterol LDL Cholesterol Direct HDL Cholesterol Urine pH Urine WBC (Auto) Urine Creatinine Urine Total Protein Fluid Total Protein Vancomycin Trough Rheumatoid Factor Complement C4 Miscellaneous Test Crossmatch 09/29/16 09/29/16 09/30/16 17:52 20:12 00:07 WBC RBC Hgb Hct MCV MCH MCHC RDW Plt Count Lymph % (Auto) [place] % (Auto) Lymph # [place] # Baso # Seg Neutrophils % Seg Neuts % (Manual) Lymphocytes % (Manual) Monocytes % (Manual) Eosinophils % (Manual) Basophils % (Manual) Nucleated RBC % Seg Neutrophils # Seg Neutrophils # Man Lymphocytes # (Manual) Monocytes # (Manual) Eosinophils # (Manual) Basophils # (Manual) PT INR Fibrinogen dRVVT Confirm Interp Factor V Activity POC ABG pH POC ABG pCO2 POC ABG pO2 ABG pO2 ABG HCO3 ABG Base Excess ABG Hemoglobin Oxyhemoglobin Sodium Potassium Chloride Carbon Dioxide BUN Creatinine Glucose POC Glucose 50 L 51 L Lactic Acid Calcium Phosphorus Magnesium Direct Bilirubin AST ALT Alkaline Phosphatase Lactate Dehydrogenase Troponin T 0.204 H* C-Reactive Protein Total Protein Albumin Prealbumin Triglycerides Cholesterol 31 L LDL Cholesterol Direct 4 L HDL Cholesterol 3 L Urine pH Urine WBC (Auto) Urine Creatinine Urine Total Protein Fluid Total Protein Vancomycin Trough Rheumatoid Factor Complement C4 Miscellaneous Test Crossmatch 09/30/16 09/30/16 09/30/16 01:30 05:15 06:10 WBC RBC Hgb Hct MCV MCH MCHC RDW Plt Count Lymph % (Auto) [place] % (Auto) Lymph # [place] # Baso # Seg Neutrophils % Seg Neuts % (Manual) Lymphocytes % (Manual) Monocytes % (Manual) Eosinophils % (Manual) Basophils % (Manual) Nucleated RBC % Seg Neutrophils # Seg Neutrophils # Man Lymphocytes # (Manual) Monocytes # (Manual) Eosinophils # (Manual) Basophils # (Manual) PT INR Fibrinogen dRVVT Confirm Interp Factor V Activity POC ABG pH POC ABG pCO2 POC ABG pO2 ABG pO2 ABG HCO3 ABG Base Excess ABG Hemoglobin Oxyhemoglobin Sodium 133 L Potassium 3.2 L Chloride 93.2 L Carbon Dioxide 19 L BUN 36 H Creatinine 3.2 H Glucose 104 H POC Glucose 167 H 146 H Lactic Acid Calcium 6.4 L Phosphorus Magnesium 1.60 L Direct Bilirubin AST ALT Alkaline Phosphatase Lactate Dehydrogenase Troponin T C-Reactive Protein Total Protein Albumin Prealbumin Triglycerides Cholesterol LDL Cholesterol Direct HDL Cholesterol Urine pH Urine WBC (Auto) Urine Creatinine Urine Total Protein Fluid Total Protein Vancomycin Trough Rheumatoid Factor Complement C4 Miscellaneous Test Crossmatch 09/30/16 09/30/16 09/30/16 11:26 13:39 18:38 WBC RBC Hgb Hct MCV MCH MCHC RDW Plt Count Lymph % (Auto) [place] % (Auto) Lymph # [place] # Baso # Seg Neutrophils % Seg Neuts % (Manual) Lymphocytes % (Manual) Monocytes % (Manual) Eosinophils % (Manual) Basophils % (Manual) Nucleated RBC % Seg Neutrophils # Seg Neutrophils # Man Lymphocytes # (Manual) Monocytes # (Manual) Eosinophils # (Manual) Basophils # (Manual) PT INR Fibrinogen dRVVT Confirm Interp Factor V Activity POC ABG pH 7.479 H POC ABG pCO2 29.8 L POC ABG pO2 117 H ABG pO2 ABG HCO3 ABG Base Excess ABG Hemoglobin Oxyhemoglobin Sodium Potassium Chloride Carbon Dioxide BUN Creatinine Glucose POC Glucose 140 H 122 H Lactic Acid Calcium Phosphorus Magnesium Direct Bilirubin AST ALT Alkaline Phosphatase Lactate Dehydrogenase Troponin T C-Reactive Protein Total Protein Albumin Prealbumin Triglycerides Cholesterol LDL Cholesterol Direct HDL Cholesterol Urine pH Urine WBC (Auto) Urine Creatinine Urine Total Protein Fluid Total Protein Vancomycin Trough Rheumatoid Factor Complement C4 Miscellaneous Test Crossmatch 10/01/16 10/01/16 10/01/16 06:00 06:00 12:37 WBC 12.6 H RBC 2.75 L Hgb 7.3 L Hct 23.3 L MCV MCH 27 L MCHC RDW 20.6 H Plt Count 72 L Lymph % (Auto) [place] % (Auto) Lymph # [place] # Baso # Seg Neutrophils % Seg Neuts % (Manual) 31.0 L Lymphocytes % (Manual) 8.0 L Monocytes % (Manual) Eosinophils % (Manual) Basophils % (Manual) Nucleated RBC % 3.0 H Seg Neutrophils # Seg Neutrophils # Man Lymphocytes # (Manual) 1.0 L Monocytes # (Manual) Eosinophils # (Manual) Basophils # (Manual) PT INR Fibrinogen dRVVT Confirm Interp Factor V Activity POC ABG pH POC ABG pCO2 POC ABG pO2 ABG pO2 ABG HCO3 ABG Base Excess ABG Hemoglobin Oxyhemoglobin Sodium 127 L Potassium Chloride 86.8 L Carbon Dioxide 20 L BUN 42 H Creatinine 3.5 H Glucose POC Glucose 65 L Lactic Acid Calcium 7.0 L Phosphorus Magnesium Direct Bilirubin AST ALT Alkaline Phosphatase Lactate Dehydrogenase Troponin T C-Reactive Protein Total Protein Albumin Prealbumin Triglycerides Cholesterol LDL Cholesterol Direct HDL Cholesterol Urine pH Urine WBC (Auto) Urine Creatinine Urine Total Protein Fluid Total Protein Vancomycin Trough Rheumatoid Factor Complement C4 Miscellaneous Test Crossmatch 10/01/16 10/01/16 10/02/16 17:39 23:32 00:59 WBC RBC Hgb Hct MCV MCH MCHC RDW Plt Count Lymph % (Auto) [place] % (Auto) Lymph # [place] # Baso # Seg Neutrophils % Seg Neuts % (Manual) Lymphocytes % (Manual) Monocytes % (Manual) Eosinophils % (Manual) Basophils % (Manual) Nucleated RBC % Seg Neutrophils # Seg Neutrophils # Man Lymphocytes # (Manual) Monocytes # (Manual) Eosinophils # (Manual) Basophils # (Manual) PT INR Fibrinogen dRVVT Confirm Interp Factor V Activity POC ABG pH POC ABG pCO2 POC ABG pO2 ABG pO2 ABG HCO3 ABG Base Excess ABG Hemoglobin Oxyhemoglobin Sodium Potassium Chloride Carbon Dioxide BUN Creatinine Glucose POC Glucose 107 H 52 L 145 H Lactic Acid Calcium Phosphorus Magnesium Direct Bilirubin AST ALT Alkaline Phosphatase Lactate Dehydrogenase Troponin T C-Reactive Protein Total Protein Albumin Prealbumin Triglycerides Cholesterol LDL Cholesterol Direct HDL Cholesterol Urine pH Urine WBC (Auto) Urine Creatinine Urine Total Protein Fluid Total Protein Vancomycin Trough Rheumatoid Factor Complement C4 Miscellaneous Test Crossmatch 10/02/16 10/02/16 10/02/16 10:30 10:50 10:50 WBC 14.7 H RBC 2.76 L Hgb 7.4 L Hct 23.6 L MCV MCH 27 L MCHC RDW 20.2 H Plt Count 79 L Lymph % (Auto) [place] % (Auto) Lymph # [place] # Baso # Seg Neutrophils % Seg Neuts % (Manual) 86.0 H Lymphocytes % (Manual) 6.0 L Monocytes % (Manual) Eosinophils % (Manual) Basophils % (Manual) Nucleated RBC % Seg Neutrophils # Seg Neutrophils # Man 12.6 H Lymphocytes # (Manual) 0.9 L Monocytes # (Manual) Eosinophils # (Manual) Basophils # (Manual) PT INR Fibrinogen dRVVT Confirm Interp Factor V Activity POC ABG pH 7.486 H POC ABG pCO2 30.1 L POC ABG pO2 108 H ABG pO2 ABG HCO3 ABG Base Excess ABG Hemoglobin Oxyhemoglobin Sodium 131 L Potassium 3.4 L Chloride 89.9 L Carbon Dioxide BUN 26 H Creatinine 2.6 H Glucose POC Glucose Lactic Acid Calcium 7.0 L Phosphorus Magnesium Direct Bilirubin AST ALT Alkaline Phosphatase Lactate Dehydrogenase Troponin T C-Reactive Protein Total Protein Albumin Prealbumin Triglycerides Cholesterol LDL Cholesterol Direct HDL Cholesterol Urine pH Urine WBC (Auto) Urine Creatinine Urine Total Protein Fluid Total Protein Vancomycin Trough Rheumatoid Factor Complement C4 Miscellaneous Test Crossmatch 10/02/16 10/03/16 10/03/16 23:45 00:45 05:10 WBC 12.9 H RBC 2.77 L Hgb 7.6 L Hct 23.7 L MCV MCH 27 L MCHC RDW 19.7 H Plt Count 89 L Lymph % (Auto) [place] % (Auto) Lymph # [place] # Baso # Seg Neutrophils % Seg Neuts % (Manual) Lymphocytes % (Manual) 8.0 L Monocytes % (Manual) Eosinophils % (Manual) Basophils % (Manual) Nucleated RBC % Seg Neutrophils # 11.9 H Seg Neutrophils # Man Lymphocytes # (Manual) 1.0 L Monocytes # (Manual) Eosinophils # (Manual) Basophils # (Manual) PT INR Fibrinogen dRVVT Confirm Interp Factor V Activity POC ABG pH POC ABG pCO2 POC ABG pO2 ABG pO2 ABG HCO3 ABG Base Excess ABG Hemoglobin Oxyhemoglobin Sodium Potassium Chloride Carbon Dioxide BUN Creatinine Glucose POC Glucose 55 L 199 H Lactic Acid Calcium Phosphorus Magnesium Direct Bilirubin AST ALT Alkaline Phosphatase Lactate Dehydrogenase Troponin T C-Reactive Protein Total Protein Albumin Prealbumin Triglycerides Cholesterol LDL Cholesterol Direct HDL Cholesterol Urine pH Urine WBC (Auto) Urine Creatinine Urine Total Protein Fluid Total Protein Vancomycin Trough Rheumatoid Factor Complement C4 Miscellaneous Test Crossmatch 10/03/16 10/03/16 10/03/16 05:10 12:14 13:18 WBC RBC Hgb Hct MCV MCH MCHC RDW Plt Count Lymph % (Auto) [place] % (Auto) Lymph # [place] # Baso # Seg Neutrophils % Seg Neuts % (Manual) Lymphocytes % (Manual) Monocytes % (Manual) Eosinophils % (Manual) Basophils % (Manual) Nucleated RBC % Seg Neutrophils # Seg Neutrophils # Man Lymphocytes # (Manual) Monocytes # (Manual) Eosinophils # (Manual) Basophils # (Manual) PT INR Fibrinogen dRVVT Confirm Interp Factor V Activity POC ABG pH POC ABG pCO2 POC ABG pO2 ABG pO2 ABG HCO3 ABG Base Excess ABG Hemoglobin Oxyhemoglobin Sodium 129 L Potassium 3.3 L Chloride 88.8 L Carbon Dioxide 20 L BUN 29 H Creatinine 2.8 H Glucose POC Glucose 68 L 127 H Lactic Acid Calcium 7.2 L Phosphorus Magnesium Direct Bilirubin AST ALT Alkaline Phosphatase Lactate Dehydrogenase Troponin T C-Reactive Protein Total Protein Albumin Prealbumin Triglycerides Cholesterol LDL Cholesterol Direct HDL Cholesterol Urine pH Urine WBC (Auto) Urine Creatinine Urine Total Protein Fluid Total Protein Vancomycin Trough Rheumatoid Factor Complement C4 Miscellaneous Test Crossmatch 10/03/16 10/03/16 10/03/16 14:42 18:21 19:09 WBC RBC Hgb Hct MCV MCH MCHC RDW Plt Count Lymph % (Auto) [place] % (Auto) Lymph # [place] # Baso # Seg Neutrophils % Seg Neuts % (Manual) Lymphocytes % (Manual) Monocytes % (Manual) Eosinophils % (Manual) Basophils % (Manual) Nucleated RBC % Seg Neutrophils # Seg Neutrophils # Man Lymphocytes # (Manual) Monocytes # (Manual) Eosinophils # (Manual) Basophils # (Manual) PT INR Fibrinogen dRVVT Confirm Interp Factor V Activity POC ABG pH 7.499 H POC ABG pCO2 28.4 L POC ABG pO2 44 L ABG pO2 ABG HCO3 ABG Base Excess ABG Hemoglobin Oxyhemoglobin Sodium Potassium Chloride Carbon Dioxide BUN Creatinine Glucose POC Glucose 64 L 205 H Lactic Acid Calcium Phosphorus Magnesium Direct Bilirubin AST ALT Alkaline Phosphatase Lactate Dehydrogenase Troponin T C-Reactive Protein Total Protein Albumin Prealbumin Triglycerides Cholesterol LDL Cholesterol Direct HDL Cholesterol Urine pH Urine WBC (Auto) Urine Creatinine Urine Total Protein Fluid Total Protein Vancomycin Trough Rheumatoid Factor Complement C4 Miscellaneous Test Crossmatch 10/03/16 10/04/16 10/04/16 23:33 04:18 06:30 WBC RBC 2.54 L Hgb 7.1 L Hct 21.7 L MCV MCH MCHC RDW 19.5 H Plt Count 76 L Lymph % (Auto) [place] % (Auto) Lymph # [place] # Baso # Seg Neutrophils % Seg Neuts % (Manual) 88.0 H Lymphocytes % (Manual) 6.0 L Monocytes % (Manual) Eosinophils % (Manual) Basophils % (Manual) Nucleated RBC % Seg Neutrophils # Seg Neutrophils # Man 8.8 H Lymphocytes # (Manual) 0.6 L Monocytes # (Manual) Eosinophils # (Manual) Basophils # (Manual) PT INR Fibrinogen dRVVT Confirm Interp Factor V Activity POC ABG pH 7.461 H POC ABG pCO2 33.6 L POC ABG pO2 211 H ABG pO2 ABG HCO3 ABG Base Excess ABG Hemoglobin Oxyhemoglobin Sodium Potassium Chloride Carbon Dioxide BUN Creatinine Glucose POC Glucose 136 H Lactic Acid Calcium Phosphorus Magnesium Direct Bilirubin AST ALT Alkaline Phosphatase Lactate Dehydrogenase Troponin T C-Reactive Protein Total Protein Albumin Prealbumin Triglycerides Cholesterol LDL Cholesterol Direct HDL Cholesterol Urine pH Urine WBC (Auto) Urine Creatinine Urine Total Protein Fluid Total Protein Vancomycin Trough Rheumatoid Factor Complement C4 Miscellaneous Test Crossmatch 10/04/16 10/04/16 10/04/16 06:30 11:45 17:54 WBC RBC Hgb Hct MCV MCH MCHC RDW Plt Count Lymph % (Auto) [place] % (Auto) Lymph # [place] # Baso # Seg Neutrophils % Seg Neuts % (Manual) Lymphocytes % (Manual) Monocytes % (Manual) Eosinophils % (Manual) Basophils % (Manual) Nucleated RBC % Seg Neutrophils # Seg Neutrophils # Man Lymphocytes # (Manual) Monocytes # (Manual) Eosinophils # (Manual) Basophils # (Manual) PT INR Fibrinogen dRVVT Confirm Interp Factor V Activity POC ABG pH POC ABG pCO2 POC ABG pO2 ABG pO2 ABG HCO3 ABG Base Excess ABG Hemoglobin Oxyhemoglobin Sodium 128 L Potassium Chloride 87.4 L Carbon Dioxide 20 L BUN 34 H Creatinine 2.9 H Glucose 127 H POC Glucose 158 H 160 H Lactic Acid Calcium 7.4 L Phosphorus Magnesium Direct Bilirubin AST ALT Alkaline Phosphatase Lactate Dehydrogenase Troponin T C-Reactive Protein Total Protein Albumin Prealbumin Triglycerides Cholesterol LDL Cholesterol Direct HDL Cholesterol Urine pH Urine WBC (Auto) Urine Creatinine Urine Total Protein Fluid Total Protein Vancomycin Trough Rheumatoid Factor Complement C4 Miscellaneous Test Crossmatch 10/04/16 10/05/16 10/05/16 23:25 04:30 05:00 WBC RBC 2.64 L Hgb 7.5 L Hct 22.6 L MCV MCH MCHC RDW 19.3 H Plt Count 80 L Lymph % (Auto) [place] % (Auto) Lymph # [place] # Baso # Seg Neutrophils % Seg Neuts % (Manual) Lymphocytes % (Manual) 12.0 L Monocytes % (Manual) Eosinophils % (Manual) Basophils % (Manual) Nucleated RBC % Seg Neutrophils # Seg Neutrophils # Man Lymphocytes # (Manual) Monocytes # (Manual) Eosinophils # (Manual) Basophils # (Manual) PT INR Fibrinogen dRVVT Confirm Interp Factor V Activity POC ABG pH 7.475 H POC ABG pCO2 33.3 L POC ABG pO2 140 H ABG pO2 ABG HCO3 ABG Base Excess ABG Hemoglobin Oxyhemoglobin Sodium Potassium Chloride Carbon Dioxide BUN Creatinine Glucose POC Glucose 141 H Lactic Acid Calcium Phosphorus Magnesium Direct Bilirubin AST ALT Alkaline Phosphatase Lactate Dehydrogenase Troponin T C-Reactive Protein Total Protein Albumin Prealbumin Triglycerides Cholesterol LDL Cholesterol Direct HDL Cholesterol Urine pH Urine WBC (Auto) Urine Creatinine Urine Total Protein Fluid Total Protein Vancomycin Trough Rheumatoid Factor Complement C4 Miscellaneous Test Crossmatch 10/05/16 10/05/16 10/05/16 05:00 05:09 12:58 WBC RBC Hgb Hct MCV MCH MCHC RDW Plt Count Lymph % (Auto) [place] % (Auto) Lymph # [place] # Baso # Seg Neutrophils % Seg Neuts % (Manual) Lymphocytes % (Manual) Monocytes % (Manual) Eosinophils % (Manual) Basophils % (Manual) Nucleated RBC % Seg Neutrophils # Seg Neutrophils # Man Lymphocytes # (Manual) Monocytes # (Manual) Eosinophils # (Manual) Basophils # (Manual) PT INR Fibrinogen dRVVT Confirm Interp Factor V Activity POC ABG pH POC ABG pCO2 POC ABG pO2 ABG pO2 ABG HCO3 ABG Base Excess ABG Hemoglobin Oxyhemoglobin Sodium 131 L Potassium Chloride 94.0 L Carbon Dioxide 20 L BUN 22 H Creatinine 2.0 H Glucose 123 H POC Glucose 166 H 179 H Lactic Acid Calcium 7.7 L Phosphorus 2.20 L D Magnesium Direct Bilirubin AST ALT Alkaline Phosphatase Lactate Dehydrogenase Troponin T C-Reactive Protein Total Protein Albumin Prealbumin Triglycerides Cholesterol LDL Cholesterol Direct HDL Cholesterol Urine pH Urine WBC (Auto) Urine Creatinine Urine Total Protein Fluid Total Protein Vancomycin Trough Rheumatoid Factor Complement C4 Miscellaneous Test Crossmatch 08/16/17 08/16/17 08/16/17 15:50 18:53 23:12 WBC RBC Hgb Hct MCV MCH MCHC RDW Plt Count Lymph % (Auto) [place] % (Auto) Lymph # [place] # Baso # Seg Neutrophils % Seg Neuts % (Manual) Lymphocytes % (Manual) Monocytes % (Manual) Eosinophils % (Manual) Basophils % (Manual) Nucleated RBC % Seg Neutrophils # Seg Neutrophils # Man Lymphocytes # (Manual) Monocytes # (Manual) Eosinophils # (Manual) Basophils # (Manual) PT INR Fibrinogen dRVVT Confirm Interp Factor V Activity POC ABG pH POC ABG pCO2 POC ABG pO2 ABG pO2 ABG HCO3 ABG Base Excess ABG Hemoglobin Oxyhemoglobin Sodium Potassium Chloride Carbon Dioxide BUN Creatinine Glucose POC Glucose 150 H 164 H Lactic Acid Calcium Phosphorus Magnesium Direct Bilirubin AST ALT Alkaline Phosphatase Lactate Dehydrogenase Troponin T C-Reactive Protein Total Protein Albumin Prealbumin Triglycerides Cholesterol LDL Cholesterol Direct HDL Cholesterol Urine pH Urine WBC (Auto) Urine Creatinine Urine Total Protein Fluid Total Protein Vancomycin Trough Rheumatoid Factor Complement C4 Miscellaneous Test Crossmatch See Detail 10/06/16 10/06/16 10/06/16 03:50 03:50 04:53 WBC RBC 3.00 L Hgb 8.6 L Hct 25.8 L MCV MCH MCHC RDW 17.9 H Plt Count 65 L Lymph % (Auto) [place] % (Auto) Lymph # [place] # Baso # Seg Neutrophils % Seg Neuts % (Manual) 30.0 L Lymphocytes % (Manual) 5.0 L Monocytes % (Manual) Eosinophils % (Manual) Basophils % (Manual) Nucleated RBC % Seg Neutrophils # Seg Neutrophils # Man Lymphocytes # (Manual) 0.4 L Monocytes # (Manual) Eosinophils # (Manual) Basophils # (Manual) PT INR Fibrinogen dRVVT Confirm Interp Factor V Activity POC ABG pH 7.310 L POC ABG pCO2 49.0 H POC ABG pO2 ABG pO2 ABG HCO3 ABG Base Excess ABG Hemoglobin Oxyhemoglobin Sodium 133 L Potassium Chloride 95.9 L Carbon Dioxide BUN 26 H Creatinine 2.0 H Glucose 116 H POC Glucose Lactic Acid Calcium 7.8 L Phosphorus Magnesium Direct Bilirubin AST ALT Alkaline Phosphatase Lactate Dehydrogenase Troponin T C-Reactive Protein Total Protein Albumin Prealbumin Triglycerides Cholesterol LDL Cholesterol Direct HDL Cholesterol Urine pH Urine WBC (Auto) Urine Creatinine Urine Total Protein Fluid Total Protein Vancomycin Trough Rheumatoid Factor Complement C4 Miscellaneous Test Crossmatch 10/06/16 10/06/16 10/06/16 05:23 11:52 18:34 WBC RBC Hgb Hct MCV MCH MCHC RDW Plt Count Lymph % (Auto) [place] % (Auto) Lymph # [place] # Baso # Seg Neutrophils % Seg Neuts % (Manual) Lymphocytes % (Manual) Monocytes % (Manual) Eosinophils % (Manual) Basophils % (Manual) Nucleated RBC % Seg Neutrophils # Seg Neutrophils # Man Lymphocytes # (Manual) Monocytes # (Manual) Eosinophils # (Manual) Basophils # (Manual) PT INR Fibrinogen dRVVT Confirm Interp Factor V Activity POC ABG pH POC ABG pCO2 POC ABG pO2 ABG pO2 ABG HCO3 ABG Base Excess ABG Hemoglobin Oxyhemoglobin Sodium Potassium Chloride Carbon Dioxide BUN Creatinine Glucose POC Glucose 126 H 116 H 129 H Lactic Acid Calcium Phosphorus Magnesium Direct Bilirubin AST ALT Alkaline Phosphatase Lactate Dehydrogenase Troponin T C-Reactive Protein Total Protein Albumin Prealbumin Triglycerides Cholesterol LDL Cholesterol Direct HDL Cholesterol Urine pH Urine WBC (Auto) Urine Creatinine Urine Total Protein Fluid Total Protein Vancomycin Trough Rheumatoid Factor Complement C4 Miscellaneous Test Crossmatch 10/07/16 10/07/16 10/07/16 03:45 05:00 10:00 WBC 17.0 H RBC 2.68 L Hgb 7.3 L Hct 25.3 L MCV MCH 27 L MCHC 29 L RDW 19.6 H Plt Count 74 L Lymph % (Auto) [place] % (Auto) Lymph # [place] # Baso # Seg Neutrophils % Seg Neuts % (Manual) Lymphocytes % (Manual) 12.0 L Monocytes % (Manual) Eosinophils % (Manual) Basophils % (Manual) Nucleated RBC % 4.0 H Seg Neutrophils # Seg Neutrophils # Man 10.7 H Lymphocytes # (Manual) Monocytes # (Manual) Eosinophils # (Manual) Basophils # (Manual) PT INR Fibrinogen dRVVT Confirm Interp Factor V Activity POC ABG pH POC ABG pCO2 POC ABG pO2 ABG pO2 ABG HCO3 ABG Base Excess ABG Hemoglobin Oxyhemoglobin Sodium 130 L Potassium 3.2 L Chloride 93.9 L Carbon Dioxide 20 L BUN 44 H Creatinine 2.7 H Glucose 129 H POC Glucose Lactic Acid Calcium 7.4 L Phosphorus Magnesium Direct Bilirubin AST ALT 6 L Alkaline Phosphatase 195 H Lactate Dehydrogenase Troponin T C-Reactive Protein Total Protein 4.9 L Albumin 1.0 L Prealbumin Triglycerides Cholesterol LDL Cholesterol Direct HDL Cholesterol Urine pH Urine WBC (Auto) Urine Creatinine Urine Total Protein Fluid Total Protein Vancomycin Trough Rheumatoid Factor Complement C4 Miscellaneous Test Flexitest 1 H Crossmatch 10/07/16 10/07/16 10/07/16 10:00 11:24 18:10 WBC RBC Hgb Hct MCV MCH MCHC RDW Plt Count Lymph % (Auto) [place] % (Auto) Lymph # [place] # Baso # Seg Neutrophils % Seg Neuts % (Manual) Lymphocytes % (Manual) Monocytes % (Manual) Eosinophils % (Manual) Basophils % (Manual) Nucleated RBC % Seg Neutrophils # Seg Neutrophils # Man Lymphocytes # (Manual) Monocytes # (Manual) Eosinophils # (Manual) Basophils # (Manual) PT INR Fibrinogen dRVVT Confirm Interp Factor V Activity POC ABG pH POC ABG pCO2 POC ABG pO2 ABG pO2 ABG HCO3 ABG Base Excess ABG Hemoglobin Oxyhemoglobin Sodium Potassium Chloride Carbon Dioxide BUN Creatinine Glucose POC Glucose 116 H 130 H Lactic Acid Calcium Phosphorus Magnesium Direct Bilirubin AST ALT Alkaline Phosphatase Lactate Dehydrogenase Troponin T C-Reactive Protein 19.40 H Total Protein Albumin Prealbumin Triglycerides Cholesterol LDL Cholesterol Direct HDL Cholesterol Urine pH Urine WBC (Auto) Urine Creatinine Urine Total Protein Fluid Total Protein Vancomycin Trough Rheumatoid Factor Complement C4 Miscellaneous Test Crossmatch 10/07/16 10/08/16 10/08/16 18:30 00:00 04:00 WBC RBC Hgb Hct MCV MCH MCHC RDW Plt Count Lymph % (Auto) [place] % (Auto) Lymph # [place] # Baso # Seg Neutrophils % Seg Neuts % (Manual) Lymphocytes % (Manual) Monocytes % (Manual) Eosinophils % (Manual) Basophils % (Manual) Nucleated RBC % Seg Neutrophils # Seg Neutrophils # Man Lymphocytes # (Manual) Monocytes # (Manual) Eosinophils # (Manual) Basophils # (Manual) PT INR Fibrinogen dRVVT Confirm Interp Factor V Activity POC ABG pH POC ABG pCO2 POC ABG pO2 ABG pO2 ABG HCO3 ABG Base Excess ABG Hemoglobin Oxyhemoglobin Sodium 132 L Potassium 3.3 L Chloride 93.6 L Carbon Dioxide 17 L BUN 59 H Creatinine 2.7 H Glucose 121 H POC Glucose 122 H Lactic Acid Calcium 7.6 L Phosphorus Magnesium Direct Bilirubin AST ALT Alkaline Phosphatase Lactate Dehydrogenase Troponin T C-Reactive Protein Total Protein Albumin Prealbumin Triglycerides Cholesterol LDL Cholesterol Direct HDL Cholesterol Urine pH Urine WBC (Auto) > 182.0 H Urine Creatinine Urine Total Protein Fluid Total Protein Vancomycin Trough Rheumatoid Factor Complement C4 Miscellaneous Test Crossmatch 10/08/16 10/08/16 10/08/16 04:30 05:30 11:51 WBC RBC 5.15 H Hgb 14.4 H D Hct 44.5 H D MCV MCH MCHC RDW 19.5 H Plt Count 56 L Lymph % (Auto) [place] % (Auto) Lymph # [place] # Baso # Seg Neutrophils % Seg Neuts % (Manual) 24.0 L Lymphocytes % (Manual) 8.0 L Monocytes % (Manual) Eosinophils % (Manual) Basophils % (Manual) Nucleated RBC % 9.0 H Seg Neutrophils # Seg Neutrophils # Man Lymphocytes # (Manual) 0.7 L Monocytes # (Manual) Eosinophils # (Manual) Basophils # (Manual) PT INR Fibrinogen dRVVT Confirm Interp Factor V Activity POC ABG pH POC ABG pCO2 POC ABG pO2 ABG pO2 ABG HCO3 ABG Base Excess ABG Hemoglobin Oxyhemoglobin Sodium Potassium Chloride Carbon Dioxide BUN Creatinine Glucose POC Glucose 125 H 150 H Lactic Acid Calcium Phosphorus Magnesium Direct Bilirubin AST ALT Alkaline Phosphatase Lactate Dehydrogenase Troponin T C-Reactive Protein Total Protein Albumin Prealbumin Triglycerides Cholesterol LDL Cholesterol Direct HDL Cholesterol Urine pH Urine WBC (Auto) Urine Creatinine Urine Total Protein Fluid Total Protein Vancomycin Trough Rheumatoid Factor Complement C4 Miscellaneous Test Crossmatch 10/08/16 10/08/16 10/08/16 12:49 17:07 19:30 WBC RBC Hgb 7.1 L D Hct 22.4 L D MCV MCH MCHC RDW Plt Count Lymph % (Auto) [place] % (Auto) Lymph # [place] # Baso # Seg Neutrophils % Seg Neuts % (Manual) Lymphocytes % (Manual) Monocytes % (Manual) Eosinophils % (Manual) Basophils % (Manual) Nucleated RBC % Seg Neutrophils # Seg Neutrophils # Man Lymphocytes # (Manual) Monocytes # (Manual) Eosinophils # (Manual) Basophils # (Manual) PT INR Fibrinogen dRVVT Confirm Interp Factor V Activity POC ABG pH POC ABG pCO2 28.2 L POC ABG pO2 111 H ABG pO2 ABG HCO3 ABG Base Excess ABG Hemoglobin Oxyhemoglobin Sodium Potassium Chloride Carbon Dioxide BUN Creatinine Glucose POC Glucose 145 H Lactic Acid Calcium Phosphorus Magnesium Direct Bilirubin AST ALT Alkaline Phosphatase Lactate Dehydrogenase Troponin T C-Reactive Protein Total Protein Albumin Prealbumin Triglycerides Cholesterol LDL Cholesterol Direct HDL Cholesterol Urine pH Urine WBC (Auto) Urine Creatinine Urine Total Protein Fluid Total Protein Vancomycin Trough Rheumatoid Factor Complement C4 Miscellaneous Test Crossmatch 10/08/16 10/09/16 10/09/16 19:30 03:45 03:45 WBC 12.6 H RBC 2.36 L Hgb 6.7 L Hct 21.1 L MCV MCH MCHC RDW 19.5 H Plt Count 75 L Lymph % (Auto) [place] % (Auto) Lymph # [place] # Baso # Seg Neutrophils % Seg Neuts % (Manual) Lymphocytes % (Manual) Monocytes % (Manual) 10.0 H Eosinophils % (Manual) Basophils % (Manual) Nucleated RBC % 3.0 H Seg Neutrophils # Seg Neutrophils # Man Lymphocytes # (Manual) Monocytes # (Manual) 1.3 H Eosinophils # (Manual) Basophils # (Manual) PT 18.0 H INR 1.41 H Fibrinogen dRVVT Confirm Interp Factor V Activity POC ABG pH POC ABG pCO2 POC ABG pO2 ABG pO2 ABG HCO3 ABG Base Excess ABG Hemoglobin Oxyhemoglobin Sodium 135 L Potassium Chloride Carbon Dioxide 17 L BUN 81 H Creatinine 3.2 H Glucose 109 H POC Glucose Lactic Acid Calcium 7.4 L Phosphorus 4.60 H D Magnesium Direct Bilirubin AST ALT Alkaline Phosphatase Lactate Dehydrogenase Troponin T C-Reactive Protein Total Protein Albumin Prealbumin Triglycerides Cholesterol LDL Cholesterol Direct HDL Cholesterol Urine pH Urine WBC (Auto) Urine Creatinine Urine Total Protein Fluid Total Protein Vancomycin Trough Rheumatoid Factor Complement C4 Miscellaneous Test Crossmatch 10/09/16 10/09/16 10/09/16 03:45 05:14 07:20 WBC RBC Hgb Hct MCV MCH MCHC RDW Plt Count Lymph % (Auto) [place] % (Auto) Lymph # [place] # Baso # Seg Neutrophils % Seg Neuts % (Manual) Lymphocytes % (Manual) Monocytes % (Manual) Eosinophils % (Manual) Basophils % (Manual) Nucleated RBC % Seg Neutrophils # Seg Neutrophils # Man Lymphocytes # (Manual) Monocytes # (Manual) Eosinophils # (Manual) Basophils # (Manual) PT 19.0 H INR 1.51 H Fibrinogen dRVVT Confirm Interp Factor V Activity POC ABG pH POC ABG pCO2 POC ABG pO2 ABG pO2 ABG HCO3 ABG Base Excess ABG Hemoglobin Oxyhemoglobin Sodium Potassium Chloride Carbon Dioxide BUN Creatinine Glucose POC Glucose 151 H Lactic Acid Calcium Phosphorus Magnesium Direct Bilirubin AST ALT Alkaline Phosphatase Lactate Dehydrogenase Troponin T C-Reactive Protein Total Protein Albumin Prealbumin Triglycerides Cholesterol LDL Cholesterol Direct HDL Cholesterol Urine pH Urine WBC (Auto) Urine Creatinine Urine Total Protein Fluid Total Protein Vancomycin Trough Rheumatoid Factor Complement C4 Miscellaneous Test Crossmatch See Detail 10/09/16 10/09/16 10/09/16 11:46 16:20 16:43 WBC RBC Hgb 7.2 L Hct 22.2 L MCV MCH MCHC RDW Plt Count Lymph % (Auto) [place] % (Auto) Lymph # [place] # Baso # Seg Neutrophils % Seg Neuts % (Manual) Lymphocytes % (Manual) Monocytes % (Manual) Eosinophils % (Manual) Basophils % (Manual) Nucleated RBC % Seg Neutrophils # Seg Neutrophils # Man Lymphocytes # (Manual) Monocytes # (Manual) Eosinophils # (Manual) Basophils # (Manual) PT INR Fibrinogen dRVVT Confirm Interp Factor V Activity POC ABG pH POC ABG pCO2 POC ABG pO2 ABG pO2 ABG HCO3 ABG Base Excess ABG Hemoglobin Oxyhemoglobin Sodium Potassium Chloride Carbon Dioxide BUN Creatinine Glucose POC Glucose 133 H 141 H Lactic Acid Calcium Phosphorus Magnesium Direct Bilirubin AST ALT Alkaline Phosphatase Lactate Dehydrogenase Troponin T C-Reactive Protein Total Protein Albumin Prealbumin Triglycerides Cholesterol LDL Cholesterol Direct HDL Cholesterol Urine pH Urine WBC (Auto) Urine Creatinine Urine Total Protein Fluid Total Protein Vancomycin Trough Rheumatoid Factor Complement C4 Miscellaneous Test Crossmatch 10/10/16 10/10/16 10/10/16 05:00 05:00 11:19 WBC 18.5 H RBC 2.19 L Hgb 6.4 L Hct 19.6 L* MCV MCH MCHC RDW 19.3 H Plt Count 93 L Lymph % (Auto) [place] % (Auto) Lymph # [place] # Baso # Seg Neutrophils % Seg Neuts % (Manual) Lymphocytes % (Manual) 10.0 L Monocytes % (Manual) Eosinophils % (Manual) Basophils % (Manual) Nucleated RBC % 4.0 H Seg Neutrophils # Seg Neutrophils # Man 11.3 H Lymphocytes # (Manual) Monocytes # (Manual) Eosinophils # (Manual) Basophils # (Manual) PT INR Fibrinogen dRVVT Confirm Interp Factor V Activity POC ABG pH POC ABG pCO2 POC ABG pO2 ABG pO2 ABG HCO3 ABG Base Excess ABG Hemoglobin Oxyhemoglobin Sodium Potassium 5.7 H D Chloride Carbon Dioxide 16 L BUN 94 H Creatinine 3.1 H Glucose 131 H POC Glucose 153 H Lactic Acid Calcium 8.2 L Phosphorus 5.10 H Magnesium 2.40 H Direct Bilirubin 0.3 H AST ALT < 5 L Alkaline Phosphatase 319 H Lactate Dehydrogenase Troponin T C-Reactive Protein Total Protein 5.1 L Albumin 1.0 L Prealbumin Triglycerides Cholesterol LDL Cholesterol Direct HDL Cholesterol Urine pH Urine WBC (Auto) Urine Creatinine Urine Total Protein Fluid Total Protein Vancomycin Trough Rheumatoid Factor Complement C4 Miscellaneous Test Crossmatch 10/10/16 10/10/16 10/11/16 17:50 23:30 04:15 WBC RBC Hgb Hct MCV MCH MCHC RDW Plt Count Lymph % (Auto) [place] % (Auto) Lymph # [place] # Baso # Seg Neutrophils % Seg Neuts % (Manual) Lymphocytes % (Manual) Monocytes % (Manual) Eosinophils % (Manual) Basophils % (Manual) Nucleated RBC % Seg Neutrophils # Seg Neutrophils # Man Lymphocytes # (Manual) Monocytes # (Manual) Eosinophils # (Manual) Basophils # (Manual) PT INR Fibrinogen dRVVT Confirm Interp Factor V Activity POC ABG pH POC ABG pCO2 POC ABG pO2 ABG pO2 ABG HCO3 ABG Base Excess ABG Hemoglobin Oxyhemoglobin Sodium Potassium Chloride 96.4 L Carbon Dioxide 21 L BUN 57 H Creatinine 2.1 H Glucose 151 H POC Glucose 146 H 141 H Lactic Acid Calcium 8.3 L Phosphorus Magnesium Direct Bilirubin AST ALT Alkaline Phosphatase Lactate Dehydrogenase Troponin T C-Reactive Protein Total Protein Albumin Prealbumin Triglycerides Cholesterol LDL Cholesterol Direct HDL Cholesterol Urine pH Urine WBC (Auto) Urine Creatinine Urine Total Protein Fluid Total Protein Vancomycin Trough Rheumatoid Factor Complement C4 Miscellaneous Test Crossmatch 10/11/16 10/11/16 10/11/16 04:15 04:15 05:30 WBC 28.3 H RBC 3.12 L Hgb 9.3 L Hct 28.7 L D MCV MCH MCHC RDW 17.7 H Plt Count 128 L Lymph % (Auto) [place] % (Auto) Lymph # [place] # Baso # Seg Neutrophils % Seg Neuts % (Manual) Lymphocytes % (Manual) Monocytes % (Manual) Eosinophils % (Manual) Basophils % (Manual) Nucleated RBC % Seg Neutrophils # Seg Neutrophils # Man Lymphocytes # (Manual) Monocytes # (Manual) Eosinophils # (Manual) Basophils # (Manual) PT INR Fibrinogen dRVVT Confirm Interp Factor V Activity POC ABG pH POC ABG pCO2 POC ABG pO2 ABG pO2 ABG HCO3 ABG Base Excess ABG Hemoglobin Oxyhemoglobin Sodium Potassium Chloride Carbon Dioxide BUN Creatinine Glucose POC Glucose 167 H Lactic Acid Calcium Phosphorus Magnesium Direct Bilirubin AST ALT Alkaline Phosphatase Lactate Dehydrogenase Troponin T C-Reactive Protein 15.80 H Total Protein Albumin Prealbumin Triglycerides Cholesterol LDL Cholesterol Direct HDL Cholesterol Urine pH Urine WBC (Auto) Urine Creatinine Urine Total Protein Fluid Total Protein Vancomycin Trough Rheumatoid Factor Complement C4 Miscellaneous Test Crossmatch 10/11/16 10/11/16 10/11/16 11:40 15:49 23:57 WBC RBC Hgb Hct MCV MCH MCHC RDW Plt Count Lymph % (Auto) [place] % (Auto) Lymph # [place] # Baso # Seg Neutrophils % Seg Neuts % (Manual) Lymphocytes % (Manual) Monocytes % (Manual) Eosinophils % (Manual) Basophils % (Manual) Nucleated RBC % Seg Neutrophils # Seg Neutrophils # Man Lymphocytes # (Manual) Monocytes # (Manual) Eosinophils # (Manual) Basophils # (Manual) PT INR Fibrinogen dRVVT Confirm Interp Factor V Activity POC ABG pH POC ABG pCO2 POC ABG pO2 ABG pO2 ABG HCO3 ABG Base Excess ABG Hemoglobin Oxyhemoglobin Sodium Potassium Chloride Carbon Dioxide BUN Creatinine Glucose POC Glucose 139 H 168 H 161 H Lactic Acid Calcium Phosphorus Magnesium Direct Bilirubin AST ALT Alkaline Phosphatase Lactate Dehydrogenase Troponin T C-Reactive Protein Total Protein Albumin Prealbumin Triglycerides Cholesterol LDL Cholesterol Direct HDL Cholesterol Urine pH Urine WBC (Auto) Urine Creatinine Urine Total Protein Fluid Total Protein Vancomycin Trough Rheumatoid Factor Complement C4 Miscellaneous Test Crossmatch 10/12/16 10/12/16 10/12/16 04:40 04:40 05:44 WBC 22.5 H RBC 2.88 L Hgb 8.8 L Hct 26.8 L MCV MCH MCHC RDW 17.8 H Plt Count Lymph % (Auto) [place] % (Auto) Lymph # [place] # Baso # Seg Neutrophils % Seg Neuts % (Manual) Lymphocytes % (Manual) Monocytes % (Manual) Eosinophils % (Manual) Basophils % (Manual) Nucleated RBC % Seg Neutrophils # Seg Neutrophils # Man Lymphocytes # (Manual) Monocytes # (Manual) Eosinophils # (Manual) Basophils # (Manual) PT INR Fibrinogen dRVVT Confirm Interp Factor V Activity POC ABG pH POC ABG pCO2 POC ABG pO2 ABG pO2 ABG HCO3 ABG Base Excess ABG Hemoglobin Oxyhemoglobin Sodium 134 L Potassium Chloride 93.0 L Carbon Dioxide BUN 74 H Creatinine 2.5 H Glucose 137 H POC Glucose 158 H Lactic Acid Calcium 8.2 L Phosphorus Magnesium Direct Bilirubin AST ALT Alkaline Phosphatase Lactate Dehydrogenase Troponin T C-Reactive Protein Total Protein Albumin Prealbumin Triglycerides Cholesterol LDL Cholesterol Direct HDL Cholesterol Urine pH Urine WBC (Auto) Urine Creatinine Urine Total Protein Fluid Total Protein Vancomycin Trough Rheumatoid Factor Complement C4 Miscellaneous Test Crossmatch 10/12/16 10/12/16 10/12/16 12:27 18:18 23:46 WBC RBC Hgb Hct MCV MCH MCHC RDW Plt Count Lymph % (Auto) [place] % (Auto) Lymph # [place] # Baso # Seg Neutrophils % Seg Neuts % (Manual) Lymphocytes % (Manual) Monocytes % (Manual) Eosinophils % (Manual) Basophils % (Manual) Nucleated RBC % Seg Neutrophils # Seg Neutrophils # Man Lymphocytes # (Manual) Monocytes # (Manual) Eosinophils # (Manual) Basophils # (Manual) PT INR Fibrinogen dRVVT Confirm Interp Factor V Activity POC ABG pH POC ABG pCO2 POC ABG pO2 ABG pO2 ABG HCO3 ABG Base Excess ABG Hemoglobin Oxyhemoglobin Sodium Potassium Chloride Carbon Dioxide BUN Creatinine Glucose POC Glucose 153 H 140 H 150 H Lactic Acid Calcium Phosphorus Magnesium Direct Bilirubin AST ALT Alkaline Phosphatase Lactate Dehydrogenase Troponin T C-Reactive Protein Total Protein Albumin Prealbumin Triglycerides Cholesterol LDL Cholesterol Direct HDL Cholesterol Urine pH Urine WBC (Auto) Urine Creatinine Urine Total Protein Fluid Total Protein Vancomycin Trough Rheumatoid Factor Complement C4 Miscellaneous Test Crossmatch 10/13/16 10/13/16 10/13/16 06:22 09:20 12:29 WBC RBC Hgb Hct MCV MCH MCHC RDW Plt Count Lymph % (Auto) [place] % (Auto) Lymph # [place] # Baso # Seg Neutrophils % Seg Neuts % (Manual) Lymphocytes % (Manual) Monocytes % (Manual) Eosinophils % (Manual) Basophils % (Manual) Nucleated RBC % Seg Neutrophils # Seg Neutrophils # Man Lymphocytes # (Manual) Monocytes # (Manual) Eosinophils # (Manual) Basophils # (Manual) PT INR Fibrinogen dRVVT Confirm Interp Factor V Activity POC ABG pH POC ABG pCO2 POC ABG pO2 ABG pO2 ABG HCO3 ABG Base Excess ABG Hemoglobin Oxyhemoglobin Sodium Potassium Chloride Carbon Dioxide BUN Creatinine Glucose POC Glucose 165 H 193 H Lactic Acid Calcium Phosphorus Magnesium Direct Bilirubin AST ALT Alkaline Phosphatase Lactate Dehydrogenase Troponin T C-Reactive Protein Total Protein Albumin Prealbumin Triglycerides Cholesterol LDL Cholesterol Direct HDL Cholesterol Urine pH Urine WBC (Auto) Urine Creatinine Urine Total Protein Fluid Total Protein Vancomycin Trough Rheumatoid Factor Complement C4 Miscellaneous Test Flexitest 1 H Crossmatch 10/13/16 10/13/16 10/13/16 18:09 Unknown Unknown WBC 23.4 H RBC 2.83 L Hgb 8.7 L Hct 26.1 L MCV MCH MCHC RDW 18.1 H Plt Count Lymph % (Auto) [place] % (Auto) Lymph # [place] # Baso # Seg Neutrophils % Seg Neuts % (Manual) Lymphocytes % (Manual) Monocytes % (Manual) Eosinophils % (Manual) Basophils % (Manual) Nucleated RBC % Seg Neutrophils # Seg Neutrophils # Man Lymphocytes # (Manual) Monocytes # (Manual) Eosinophils # (Manual) Basophils # (Manual) PT INR Fibrinogen dRVVT Confirm Interp Factor V Activity POC ABG pH POC ABG pCO2 POC ABG pO2 ABG pO2 ABG HCO3 ABG Base Excess ABG Hemoglobin Oxyhemoglobin Sodium Potassium Chloride 95.8 L Carbon Dioxide BUN 82 H Creatinine 2.6 H Glucose 152 H POC Glucose 166 H Lactic Acid Calcium Phosphorus Magnesium Direct Bilirubin AST ALT Alkaline Phosphatase Lactate Dehydrogenase Troponin T C-Reactive Protein Total Protein Albumin Prealbumin Triglycerides Cholesterol LDL Cholesterol Direct HDL Cholesterol Urine pH Urine WBC (Auto) Urine Creatinine Urine Total Protein Fluid Total Protein Vancomycin Trough Rheumatoid Factor Complement C4 Miscellaneous Test Crossmatch 10/14/16 10/14/16 10/14/16 05:38 06:35 08:10 WBC 20.7 H RBC 2.81 L Hgb 8.4 L Hct 27.2 L MCV MCH MCHC RDW 19.4 H Plt Count Lymph % (Auto) [place] % (Auto) Lymph # [place] # Baso # Seg Neutrophils % Seg Neuts % (Manual) Lymphocytes % (Manual) Monocytes % (Manual) Eosinophils % (Manual) Basophils % (Manual) Nucleated RBC % Seg Neutrophils # Seg Neutrophils # Man Lymphocytes # (Manual) Monocytes # (Manual) Eosinophils # (Manual) Basophils # (Manual) PT INR Fibrinogen dRVVT Confirm Interp Factor V Activity POC ABG pH POC ABG pCO2 POC ABG pO2 ABG pO2 ABG HCO3 ABG Base Excess ABG Hemoglobin Oxyhemoglobin Sodium Potassium Chloride Carbon Dioxide BUN 58 H Creatinine 1.9 H Glucose 169 H POC Glucose 195 H Lactic Acid Calcium Phosphorus Magnesium Direct Bilirubin AST ALT Alkaline Phosphatase Lactate Dehydrogenase Troponin T C-Reactive Protein Total Protein Albumin Prealbumin Triglycerides Cholesterol LDL Cholesterol Direct HDL Cholesterol Urine pH Urine WBC (Auto) Urine Creatinine Urine Total Protein Fluid Total Protein Vancomycin Trough Rheumatoid Factor Complement C4 Miscellaneous Test Crossmatch 10/14/16 10/14/16 10/14/16 11:44 17:13 23:28 WBC RBC Hgb Hct MCV MCH MCHC RDW Plt Count Lymph % (Auto) [place] % (Auto) Lymph # [place] # Baso # Seg Neutrophils % Seg Neuts % (Manual) Lymphocytes % (Manual) Monocytes % (Manual) Eosinophils % (Manual) Basophils % (Manual) Nucleated RBC % Seg Neutrophils # Seg Neutrophils # Man Lymphocytes # (Manual) Monocytes # (Manual) Eosinophils # (Manual) Basophils # (Manual) PT INR Fibrinogen dRVVT Confirm Interp Factor V Activity POC ABG pH POC ABG pCO2 POC ABG pO2 ABG pO2 ABG HCO3 ABG Base Excess ABG Hemoglobin Oxyhemoglobin Sodium Potassium Chloride Carbon Dioxide BUN Creatinine Glucose POC Glucose 174 H 121 H 151 H Lactic Acid Calcium Phosphorus Magnesium Direct Bilirubin AST ALT Alkaline Phosphatase Lactate Dehydrogenase Troponin T C-Reactive Protein Total Protein Albumin Prealbumin Triglycerides Cholesterol LDL Cholesterol Direct HDL Cholesterol Urine pH Urine WBC (Auto) Urine Creatinine Urine Total Protein Fluid Total Protein Vancomycin Trough Rheumatoid Factor Complement C4 Miscellaneous Test Crossmatch 10/15/16 10/15/16 10/15/16 05:06 12:26 17:48 WBC RBC Hgb Hct MCV MCH MCHC RDW Plt Count Lymph % (Auto) [place] % (Auto) Lymph # [place] # Baso # Seg Neutrophils % Seg Neuts % (Manual) Lymphocytes % (Manual) Monocytes % (Manual) Eosinophils % (Manual) Basophils % (Manual) Nucleated RBC % Seg Neutrophils # Seg Neutrophils # Man Lymphocytes # (Manual) Monocytes # (Manual) Eosinophils # (Manual) Basophils # (Manual) PT INR Fibrinogen dRVVT Confirm Interp Factor V Activity POC ABG pH POC ABG pCO2 POC ABG pO2 ABG pO2 ABG HCO3 ABG Base Excess ABG Hemoglobin Oxyhemoglobin Sodium Potassium Chloride Carbon Dioxide BUN Creatinine Glucose POC Glucose 151 H 149 H 153 H Lactic Acid Calcium Phosphorus Magnesium Direct Bilirubin AST ALT Alkaline Phosphatase Lactate Dehydrogenase Troponin T C-Reactive Protein Total Protein Albumin Prealbumin Triglycerides Cholesterol LDL Cholesterol Direct HDL Cholesterol Urine pH Urine WBC (Auto) Urine Creatinine Urine Total Protein Fluid Total Protein Vancomycin Trough Rheumatoid Factor Complement C4 Miscellaneous Test Crossmatch 10/15/16 10/15/1617 Unknown Unknown 00:02 WBC 23.4 H RBC 2.78 L Hgb 8.5 L Hct 25.7 L MCV MCH MCHC RDW 18.7 H Plt Count Lymph % (Auto) [place] % (Auto) Lymph # [place] # Baso # Seg Neutrophils % Seg Neuts % (Manual) Lymphocytes % (Manual) Monocytes % (Manual) Eosinophils % (Manual) Basophils % (Manual) Nucleated RBC % Seg Neutrophils # Seg Neutrophils # Man Lymphocytes # (Manual) Monocytes # (Manual) Eosinophils # (Manual) Basophils # (Manual) PT INR Fibrinogen dRVVT Confirm Interp Factor V Activity POC ABG pH POC ABG pCO2 POC ABG pO2 ABG pO2 ABG HCO3 ABG Base Excess ABG Hemoglobin Oxyhemoglobin Sodium Potassium Chloride Carbon Dioxide BUN 73 H Creatinine 2.3 H Glucose 120 H POC Glucose 137 H Lactic Acid Calcium Phosphorus Magnesium Direct Bilirubin AST ALT Alkaline Phosphatase Lactate Dehydrogenase Troponin T C-Reactive Protein Total Protein Albumin Prealbumin Triglycerides Cholesterol LDL Cholesterol Direct HDL Cholesterol Urine pH Urine WBC (Auto) Urine Creatinine Urine Total Protein Fluid Total Protein Vancomycin Trough Rheumatoid Factor Complement C4 Miscellaneous Test Crossmatch 10/16/16 10/16/16 10/16/16 05:44 06:25 06:25 WBC 22.5 H RBC 2.76 L Hgb 8.3 L Hct 25.2 L MCV MCH MCHC RDW 18.3 H Plt Count Lymph % (Auto) [place] % (Auto) Lymph # [place] # Baso # Seg Neutrophils % Seg Neuts % (Manual) Lymphocytes % (Manual) Monocytes % (Manual) Eosinophils % (Manual) Basophils % (Manual) Nucleated RBC % Seg Neutrophils # Seg Neutrophils # Man Lymphocytes # (Manual) Monocytes # (Manual) Eosinophils # (Manual) Basophils # (Manual) PT INR Fibrinogen dRVVT Confirm Interp Factor V Activity POC ABG pH POC ABG pCO2 POC ABG pO2 ABG pO2 ABG HCO3 ABG Base Excess ABG Hemoglobin Oxyhemoglobin Sodium Potassium Chloride Carbon Dioxide BUN 92 H Creatinine 3.0 H Glucose 138 H POC Glucose 110 H Lactic Acid Calcium Phosphorus Magnesium Direct Bilirubin AST ALT Alkaline Phosphatase Lactate Dehydrogenase Troponin T C-Reactive Protein Total Protein Albumin Prealbumin Triglycerides Cholesterol LDL Cholesterol Direct HDL Cholesterol Urine pH Urine WBC (Auto) Urine Creatinine Urine Total Protein Fluid Total Protein Vancomycin Trough Rheumatoid Factor Complement C4 Miscellaneous Test Crossmatch 08/10/16/16 10/16/16 11:27 11:48 17:36 WBC RBC Hgb Hct MCV MCH MCHC RDW Plt Count Lymph % (Auto) [place] % (Auto) Lymph # [place] # Baso # Seg Neutrophils % Seg Neuts % (Manual) Lymphocytes % (Manual) Monocytes % (Manual) Eosinophils % (Manual) Basophils % (Manual) Nucleated RBC % Seg Neutrophils # Seg Neutrophils # Man Lymphocytes # (Manual) Monocytes # (Manual) Eosinophils # (Manual) Basophils # (Manual) PT INR Fibrinogen dRVVT Confirm Interp Factor V Activity POC ABG pH 7.582 H POC ABG pCO2 27.4 L POC ABG pO2 110 H ABG pO2 ABG HCO3 ABG Base Excess ABG Hemoglobin Oxyhemoglobin Sodium Potassium Chloride Carbon Dioxide BUN Creatinine Glucose POC Glucose 121 H 133 H Lactic Acid Calcium Phosphorus Magnesium Direct Bilirubin AST ALT Alkaline Phosphatase Lactate Dehydrogenase Troponin T C-Reactive Protein Total Protein Albumin Prealbumin Triglycerides Cholesterol LDL Cholesterol Direct HDL Cholesterol Urine pH Urine WBC (Auto) Urine Creatinine Urine Total Protein Fluid Total Protein Vancomycin Trough Rheumatoid Factor Complement C4 Miscellaneous Test Crossmatch 10/16/16 10/17/16 10/17/16 20:48 04:24 04:24 WBC 21.4 H RBC 2.72 L Hgb 8.0 L Hct 25.2 L MCV MCH MCHC RDW 18.0 H Plt Count Lymph % (Auto) [place] % (Auto) Lymph # [place] # Baso # Seg Neutrophils % Seg Neuts % (Manual) Lymphocytes % (Manual) Monocytes % (Manual) Eosinophils % (Manual) Basophils % (Manual) Nucleated RBC % Seg Neutrophils # Seg Neutrophils # Man Lymphocytes # (Manual) Monocytes # (Manual) Eosinophils # (Manual) Basophils # (Manual) PT INR Fibrinogen dRVVT Confirm Interp Factor V Activity POC ABG pH 7.561 H POC ABG pCO2 24.4 L POC ABG pO2 77 L ABG pO2 ABG HCO3 ABG Base Excess ABG Hemoglobin Oxyhemoglobin Sodium 148 H Potassium Chloride Carbon Dioxide BUN 104 H Creatinine 3.0 H Glucose 149 H POC Glucose Lactic Acid Calcium Phosphorus Magnesium Direct Bilirubin AST ALT Alkaline Phosphatase 138 H Lactate Dehydrogenase Troponin T C-Reactive Protein Total Protein 6.2 L Albumin 1.5 L Prealbumin Triglycerides Cholesterol LDL Cholesterol Direct HDL Cholesterol Urine pH Urine WBC (Auto) Urine Creatinine Urine Total Protein Fluid Total Protein Vancomycin Trough Rheumatoid Factor Complement C4 Miscellaneous Test Crossmatch 10/17/16 10/17/16 10/17/16 06:02 12:17 17:14 WBC RBC Hgb Hct MCV MCH MCHC RDW Plt Count Lymph % (Auto) [place] % (Auto) Lymph # [place] # Baso # Seg Neutrophils % Seg Neuts % (Manual) Lymphocytes % (Manual) Monocytes % (Manual) Eosinophils % (Manual) Basophils % (Manual) Nucleated RBC % Seg Neutrophils # Seg Neutrophils # Man Lymphocytes # (Manual) Monocytes # (Manual) Eosinophils # (Manual) Basophils # (Manual) PT INR Fibrinogen dRVVT Confirm Interp Factor V Activity POC ABG pH POC ABG pCO2 POC ABG pO2 ABG pO2 ABG HCO3 ABG Base Excess ABG Hemoglobin Oxyhemoglobin Sodium Potassium Chloride Carbon Dioxide BUN Creatinine Glucose POC Glucose 170 H 167 H 126 H Lactic Acid Calcium Phosphorus Magnesium Direct Bilirubin AST ALT Alkaline Phosphatase Lactate Dehydrogenase Troponin T C-Reactive Protein Total Protein Albumin Prealbumin Triglycerides Cholesterol LDL Cholesterol Direct HDL Cholesterol Urine pH Urine WBC (Auto) Urine Creatinine Urine Total Protein Fluid Total Protein Vancomycin Trough Rheumatoid Factor Complement C4 Miscellaneous Test Crossmatch 10/17/16 10/18/16 10/18/16 23:17 04:00 04:00 WBC 20.7 H RBC 2.47 L Hgb 7.4 L Hct 22.9 L MCV MCH MCHC RDW 17.5 H Plt Count Lymph % (Auto) [place] % (Auto) Lymph # [place] # Baso # Seg Neutrophils % Seg Neuts % (Manual) Lymphocytes % (Manual) Monocytes % (Manual) Eosinophils % (Manual) Basophils % (Manual) Nucleated RBC % Seg Neutrophils # Seg Neutrophils # Man Lymphocytes # (Manual) Monocytes # (Manual) Eosinophils # (Manual) Basophils # (Manual) PT INR Fibrinogen dRVVT Confirm Interp Factor V Activity POC ABG pH POC ABG pCO2 POC ABG pO2 ABG pO2 ABG HCO3 ABG Base Excess ABG Hemoglobin Oxyhemoglobin Sodium 149 H Potassium Chloride 107.9 H Carbon Dioxide 20 L BUN 117 H Creatinine 3.2 H Glucose 119 H POC Glucose 121 H Lactic Acid Calcium Phosphorus Magnesium Direct Bilirubin AST ALT Alkaline Phosphatase Lactate Dehydrogenase Troponin T C-Reactive Protein Total Protein Albumin Prealbumin Triglycerides Cholesterol LDL Cholesterol Direct HDL Cholesterol Urine pH Urine WBC (Auto) Urine Creatinine Urine Total Protein Fluid Total Protein Vancomycin Trough Rheumatoid Factor Complement C4 Miscellaneous Test Crossmatch 0810/18/16 10/18/16 05:23 10:46 17:30 WBC RBC Hgb Hct MCV MCH MCHC RDW Plt Count Lymph % (Auto) [place] % (Auto) Lymph # [place] # Baso # Seg Neutrophils % Seg Neuts % (Manual) Lymphocytes % (Manual) Monocytes % (Manual) Eosinophils % (Manual) Basophils % (Manual) Nucleated RBC % Seg Neutrophils # Seg Neutrophils # Man Lymphocytes # (Manual) Monocytes # (Manual) Eosinophils # (Manual) Basophils # (Manual) PT INR Fibrinogen dRVVT Confirm Interp Factor V Activity POC ABG pH POC ABG pCO2 POC ABG pO2 ABG pO2 ABG HCO3 ABG Base Excess ABG Hemoglobin Oxyhemoglobin Sodium Potassium Chloride Carbon Dioxide BUN Creatinine Glucose POC Glucose 119 H 155 H 124 H Lactic Acid Calcium Phosphorus Magnesium Direct Bilirubin AST ALT Alkaline Phosphatase Lactate Dehydrogenase Troponin T C-Reactive Protein Total Protein Albumin Prealbumin Triglycerides Cholesterol LDL Cholesterol Direct HDL Cholesterol Urine pH Urine WBC (Auto) Urine Creatinine Urine Total Protein Fluid Total Protein Vancomycin Trough Rheumatoid Factor Complement C4 Miscellaneous Test Crossmatch 10/19/16 10/19/16 10/19/16 04:00 04:00 05:25 WBC 17.4 H RBC 2.54 L Hgb 7.7 L Hct 23.6 L MCV MCH MCHC RDW 17.3 H Plt Count Lymph % (Auto) [place] % (Auto) Lymph # [place] # Baso # Seg Neutrophils % Seg Neuts % (Manual) Lymphocytes % (Manual) Monocytes % (Manual) Eosinophils % (Manual) Basophils % (Manual) Nucleated RBC % Seg Neutrophils # Seg Neutrophils # Man Lymphocytes # (Manual) Monocytes # (Manual) Eosinophils # (Manual) Basophils # (Manual) PT INR Fibrinogen dRVVT Confirm Interp Factor V Activity POC ABG pH POC ABG pCO2 POC ABG pO2 ABG pO2 ABG HCO3 ABG Base Excess ABG Hemoglobin Oxyhemoglobin Sodium Potassium Chloride Carbon Dioxide BUN 72 H Creatinine 2.1 H Glucose 116 H POC Glucose 119 H Lactic Acid Calcium Phosphorus Magnesium Direct Bilirubin AST ALT Alkaline Phosphatase Lactate Dehydrogenase Troponin T C-Reactive Protein Total Protein Albumin Prealbumin Triglycerides Cholesterol LDL Cholesterol Direct HDL Cholesterol Urine pH Urine WBC (Auto) Urine Creatinine Urine Total Protein Fluid Total Protein Vancomycin Trough Rheumatoid Factor Complement C4 Miscellaneous Test Crossmatch 10/19/16 10/19/16 10/20/16 11:46 23:59 06:00 WBC RBC Hgb Hct MCV MCH MCHC RDW Plt Count Lymph % (Auto) [place] % (Auto) Lymph # [place] # Baso # Seg Neutrophils % Seg Neuts % (Manual) Lymphocytes % (Manual) Monocytes % (Manual) Eosinophils % (Manual) Basophils % (Manual) Nucleated RBC % Seg Neutrophils # Seg Neutrophils # Man Lymphocytes # (Manual) Monocytes # (Manual) Eosinophils # (Manual) Basophils # (Manual) PT INR Fibrinogen dRVVT Confirm Interp Factor V Activity POC ABG pH POC ABG pCO2 POC ABG pO2 ABG pO2 ABG HCO3 ABG Base Excess ABG Hemoglobin Oxyhemoglobin Sodium Potassium Chloride Carbon Dioxide 17 L BUN 94 H Creatinine 2.7 H Glucose POC Glucose 116 H 117 H Lactic Acid Calcium Phosphorus Magnesium Direct Bilirubin AST ALT Alkaline Phosphatase Lactate Dehydrogenase Troponin T C-Reactive Protein Total Protein Albumin Prealbumin Triglycerides Cholesterol LDL Cholesterol Direct HDL Cholesterol Urine pH Urine WBC (Auto) Urine Creatinine Urine Total Protein Fluid Total Protein Vancomycin Trough Rheumatoid Factor Complement C4 Miscellaneous Test Crossmatch 10/20/16 10/20/16 10/20/16 06:00 11:49 16:00 WBC 19.7 H RBC 2.51 L Hgb 7.7 L Hct 23.5 L MCV MCH MCHC RDW 17.5 H Plt Count Lymph % (Auto) [place] % (Auto) Lymph # [place] # Baso # Seg Neutrophils % Seg Neuts % (Manual) Lymphocytes % (Manual) Monocytes % (Manual) Eosinophils % (Manual) Basophils % (Manual) Nucleated RBC % Seg Neutrophils # Seg Neutrophils # Man Lymphocytes # (Manual) Monocytes # (Manual) Eosinophils # (Manual) Basophils # (Manual) PT INR Fibrinogen dRVVT Confirm Interp Factor V Activity POC ABG pH POC ABG pCO2 POC ABG pO2 ABG pO2 ABG HCO3 ABG Base Excess ABG Hemoglobin Oxyhemoglobin Sodium Potassium Chloride Carbon Dioxide BUN Creatinine Glucose POC Glucose 117 H Lactic Acid Calcium Phosphorus Magnesium Direct Bilirubin AST ALT Alkaline Phosphatase Lactate Dehydrogenase Troponin T C-Reactive Protein Total Protein Albumin Prealbumin Triglycerides Cholesterol LDL Cholesterol Direct HDL Cholesterol Urine pH Urine WBC (Auto) Urine Creatinine Urine Total Protein Fluid Total Protein Vancomycin Trough Rheumatoid Factor Complement C4 Miscellaneous Test Flexitest 1 H Crossmatch 10/20/16 10/20/16 10/21/16 18:36 23:39 04:00 WBC RBC Hgb Hct MCV MCH MCHC RDW Plt Count Lymph % (Auto) [place] % (Auto) Lymph # [place] # Baso # Seg Neutrophils % Seg Neuts % (Manual) Lymphocytes % (Manual) Monocytes % (Manual) Eosinophils % (Manual) Basophils % (Manual) Nucleated RBC % Seg Neutrophils # Seg Neutrophils # Man Lymphocytes # (Manual) Monocytes # (Manual) Eosinophils # (Manual) Basophils # (Manual) PT INR Fibrinogen dRVVT Confirm Interp Factor V Activity POC ABG pH POC ABG pCO2 POC ABG pO2 ABG pO2 ABG HCO3 ABG Base Excess ABG Hemoglobin Oxyhemoglobin Sodium Potassium 5.4 H D Chloride Carbon Dioxide 15 L BUN 110 H Creatinine 3.0 H Glucose POC Glucose 127 H 114 H Lactic Acid Calcium Phosphorus Magnesium Direct Bilirubin AST ALT Alkaline Phosphatase Lactate Dehydrogenase Troponin T C-Reactive Protein Total Protein Albumin Prealbumin Triglycerides Cholesterol LDL Cholesterol Direct HDL Cholesterol Urine pH Urine WBC (Auto) Urine Creatinine Urine Total Protein Fluid Total Protein Vancomycin Trough Rheumatoid Factor Complement C4 Miscellaneous Test Crossmatch 10/21/16 10/21/16 10/22/16 05:54 23:46 05:18 WBC RBC Hgb Hct MCV MCH MCHC RDW Plt Count Lymph % (Auto) [place] % (Auto) Lymph # [place] # Baso # Seg Neutrophils % Seg Neuts % (Manual) Lymphocytes % (Manual) Monocytes % (Manual) Eosinophils % (Manual) Basophils % (Manual) Nucleated RBC % Seg Neutrophils # Seg Neutrophils # Man Lymphocytes # (Manual) Monocytes # (Manual) Eosinophils # (Manual) Basophils # (Manual) PT INR Fibrinogen dRVVT Confirm Interp Factor V Activity POC ABG pH POC ABG pCO2 POC ABG pO2 ABG pO2 ABG HCO3 ABG Base Excess ABG Hemoglobin Oxyhemoglobin Sodium Potassium Chloride Carbon Dioxide BUN Creatinine Glucose POC Glucose 119 H 108 H 109 H Lactic Acid Calcium Phosphorus Magnesium Direct Bilirubin AST ALT Alkaline Phosphatase Lactate Dehydrogenase Troponin T C-Reactive Protein Total Protein Albumin Prealbumin Triglycerides Cholesterol LDL Cholesterol Direct HDL Cholesterol Urine pH Urine WBC (Auto) Urine Creatinine Urine Total Protein Fluid Total Protein Vancomycin Trough Rheumatoid Factor Complement C4 Miscellaneous Test Crossmatch 10/22/16 10/22/16 10/22/16 06:40 06:40 06:40 WBC 14.0 H RBC 2.03 L Hgb 7.0 L Hct 20.5 L MCV 98 H MCH 34 H MCHC 35 H RDW 17.8 H Plt Count Lymph % (Auto) [place] % (Auto) 9.9 H Lymph # [place] # 1.4 H Baso # 0.2 H Seg Neutrophils % 72.0 H Seg Neuts % (Manual) Lymphocytes % (Manual) Monocytes % (Manual) Eosinophils % (Manual) Basophils % (Manual) Nucleated RBC % Seg Neutrophils # 10.0 H Seg Neutrophils # Man Lymphocytes # (Manual) Monocytes # (Manual) Eosinophils # (Manual) Basophils # (Manual) PT INR Fibrinogen dRVVT Confirm Interp Factor V Activity POC ABG pH POC ABG pCO2 POC ABG pO2 ABG pO2 ABG HCO3 ABG Base Excess ABG Hemoglobin Oxyhemoglobin Sodium 130 L D Potassium Chloride 92.4 L Carbon Dioxide 20 L BUN 50 H Creatinine 1.6 H Glucose 589 H* POC Glucose Lactic Acid Calcium 7.8 L D Phosphorus Magnesium 1.60 L Direct Bilirubin AST ALT Alkaline Phosphatase Lactate Dehydrogenase Troponin T C-Reactive Protein Total Protein Albumin Prealbumin Triglycerides Cholesterol LDL Cholesterol Direct HDL Cholesterol Urine pH Urine WBC (Auto) Urine Creatinine Urine Total Protein Fluid Total Protein Vancomycin Trough Rheumatoid Factor Complement C4 Miscellaneous Test Crossmatch 10/22/16 10/22/16 10/22/16 11:39 16:44 23:36 WBC RBC Hgb Hct MCV MCH MCHC RDW Plt Count Lymph % (Auto) [place] % (Auto) Lymph # [place] # Baso # Seg Neutrophils % Seg Neuts % (Manual) Lymphocytes % (Manual) Monocytes % (Manual) Eosinophils % (Manual) Basophils % (Manual) Nucleated RBC % Seg Neutrophils # Seg Neutrophils # Man Lymphocytes # (Manual) Monocytes # (Manual) Eosinophils # (Manual) Basophils # (Manual) PT INR Fibrinogen dRVVT Confirm Interp Factor V Activity POC ABG pH POC ABG pCO2 POC ABG pO2 ABG pO2 ABG HCO3 ABG Base Excess ABG Hemoglobin Oxyhemoglobin Sodium Potassium Chloride Carbon Dioxide BUN Creatinine Glucose POC Glucose 142 H 163 H 123 H Lactic Acid Calcium Phosphorus Magnesium Direct Bilirubin AST ALT Alkaline Phosphatase Lactate Dehydrogenase Troponin T C-Reactive Protein Total Protein Albumin Prealbumin Triglycerides Cholesterol LDL Cholesterol Direct HDL Cholesterol Urine pH Urine WBC (Auto) Urine Creatinine Urine Total Protein Fluid Total Protein Vancomycin Trough Rheumatoid Factor Complement C4 Miscellaneous Test Crossmatch 10/23/16 10/23/16 10/23/16 04:58 06:00 12:12 WBC RBC Hgb Hct MCV MCH MCHC RDW Plt Count Lymph % (Auto) [place] % (Auto) Lymph # [place] # Baso # Seg Neutrophils % Seg Neuts % (Manual) Lymphocytes % (Manual) Monocytes % (Manual) Eosinophils % (Manual) Basophils % (Manual) Nucleated RBC % Seg Neutrophils # Seg Neutrophils # Man Lymphocytes # (Manual) Monocytes # (Manual) Eosinophils # (Manual) Basophils # (Manual) PT INR Fibrinogen dRVVT Confirm Interp Factor V Activity POC ABG pH POC ABG pCO2 POC ABG pO2 ABG pO2 ABG HCO3 ABG Base Excess ABG Hemoglobin Oxyhemoglobin Sodium 133 L Potassium 3.5 L Chloride 96.1 L Carbon Dioxide 18 L BUN 76 H Creatinine 2.1 H Glucose POC Glucose 133 H 138 H Lactic Acid Calcium 8.3 L Phosphorus Magnesium Direct Bilirubin AST ALT Alkaline Phosphatase Lactate Dehydrogenase Troponin T C-Reactive Protein Total Protein Albumin Prealbumin Triglycerides Cholesterol LDL Cholesterol Direct HDL Cholesterol Urine pH Urine WBC (Auto) Urine Creatinine Urine Total Protein Fluid Total Protein Vancomycin Trough Rheumatoid Factor Complement C4 Miscellaneous Test Crossmatch 10/23/16 10/23/16 10/24/16 16:53 23:37 04:00 WBC RBC Hgb Hct MCV MCH MCHC RDW Plt Count Lymph % (Auto) [place] % (Auto) Lymph # [place] # Baso # Seg Neutrophils % Seg Neuts % (Manual) Lymphocytes % (Manual) Monocytes % (Manual) Eosinophils % (Manual) Basophils % (Manual) Nucleated RBC % Seg Neutrophils # Seg Neutrophils # Man Lymphocytes # (Manual) Monocytes # (Manual) Eosinophils # (Manual) Basophils # (Manual) PT INR Fibrinogen dRVVT Confirm Interp Factor V Activity POC ABG pH POC ABG pCO2 POC ABG pO2 ABG pO2 ABG HCO3 ABG Base Excess ABG Hemoglobin Oxyhemoglobin Sodium 131 L Potassium Chloride 94.5 L Carbon Dioxide 19 L BUN 97 H Creatinine 2.6 H Glucose 110 H POC Glucose 125 H 123 H Lactic Acid Calcium 8.3 L Phosphorus Magnesium Direct Bilirubin AST ALT Alkaline Phosphatase Lactate Dehydrogenase Troponin T C-Reactive Protein Total Protein Albumin Prealbumin Triglycerides Cholesterol LDL Cholesterol Direct HDL Cholesterol Urine pH Urine WBC (Auto) Urine Creatinine Urine Total Protein Fluid Total Protein Vancomycin Trough Rheumatoid Factor Complement C4 Miscellaneous Test Crossmatch 10/24/16 10/24/16 10/24/16 07:49 11:39 17:52 WBC RBC Hgb 6.0 L Hct 19.7 L* MCV MCH MCHC RDW Plt Count Lymph % (Auto) [place] % (Auto) Lymph # [place] # Baso # Seg Neutrophils % Seg Neuts % (Manual) Lymphocytes % (Manual) Monocytes % (Manual) Eosinophils % (Manual) Basophils % (Manual) Nucleated RBC % Seg Neutrophils # Seg Neutrophils # Man Lymphocytes # (Manual) Monocytes # (Manual) Eosinophils # (Manual) Basophils # (Manual) PT INR Fibrinogen dRVVT Confirm Interp Factor V Activity POC ABG pH POC ABG pCO2 POC ABG pO2 ABG pO2 ABG HCO3 ABG Base Excess ABG Hemoglobin Oxyhemoglobin Sodium Potassium Chloride Carbon Dioxide BUN Creatinine Glucose POC Glucose 106 H 158 H Lactic Acid Calcium Phosphorus Magnesium Direct Bilirubin AST ALT Alkaline Phosphatase Lactate Dehydrogenase Troponin T C-Reactive Protein Total Protein Albumin Prealbumin Triglycerides Cholesterol LDL Cholesterol Direct HDL Cholesterol Urine pH Urine WBC (Auto) Urine Creatinine Urine Total Protein Fluid Total Protein Vancomycin Trough Rheumatoid Factor Complement C4 Miscellaneous Test Crossmatch 10/24/16 10/24/16 10/24/16 20:00 22:27 Unknown WBC RBC Hgb 9.4 L D Hct 27.5 L D MCV MCH MCHC RDW Plt Count Lymph % (Auto) [place] % (Auto) Lymph # [place] # Baso # Seg Neutrophils % Seg Neuts % (Manual) Lymphocytes % (Manual) Monocytes % (Manual) Eosinophils % (Manual) Basophils % (Manual) Nucleated RBC % Seg Neutrophils # Seg Neutrophils # Man Lymphocytes # (Manual) Monocytes # (Manual) Eosinophils # (Manual) Basophils # (Manual) PT INR Fibrinogen dRVVT Confirm Interp Factor V Activity POC ABG pH POC ABG pCO2 POC ABG pO2 ABG pO2 ABG HCO3 ABG Base Excess ABG Hemoglobin Oxyhemoglobin Sodium Potassium Chloride Carbon Dioxide BUN Creatinine Glucose POC Glucose 125 H Lactic Acid Calcium Phosphorus Magnesium Direct Bilirubin AST ALT Alkaline Phosphatase Lactate Dehydrogenase Troponin T C-Reactive Protein Total Protein Albumin Prealbumin Triglycerides Cholesterol LDL Cholesterol Direct HDL Cholesterol Urine pH Urine WBC (Auto) Urine Creatinine Urine Total Protein Fluid Total Protein Vancomycin Trough Rheumatoid Factor Complement C4 Miscellaneous Test Crossmatch See Detail 10/25/16 10/25/16 10/25/16 04:00 04:00 04:00 WBC 14.2 H RBC 2.98 L Hgb 9.0 L Hct 26.2 L MCV MCH MCHC RDW 16.6 H Plt Count Lymph % (Auto) [place] % (Auto) 10.7 H Lymph # [place] # 1.5 H Baso # Seg Neutrophils % 73.6 H Seg Neuts % (Manual) Lymphocytes % (Manual) Monocytes % (Manual) Eosinophils % (Manual) Basophils % (Manual) Nucleated RBC % Seg Neutrophils # 10.5 H Seg Neutrophils # Man Lymphocytes # (Manual) Monocytes # (Manual) Eosinophils # (Manual) Basophils # (Manual) PT INR Fibrinogen dRVVT Confirm Interp Factor V Activity POC ABG pH POC ABG pCO2 POC ABG pO2 ABG pO2 ABG HCO3 ABG Base Excess ABG Hemoglobin Oxyhemoglobin Sodium 132 L Potassium Chloride 94.7 L Carbon Dioxide BUN 51 H Creatinine 1.6 H Glucose 130 H POC Glucose Lactic Acid Calcium 8.3 L Phosphorus 1.60 L D Magnesium Direct Bilirubin AST ALT Alkaline Phosphatase Lactate Dehydrogenase Troponin T C-Reactive Protein Total Protein Albumin Prealbumin Triglycerides Cholesterol LDL Cholesterol Direct HDL Cholesterol Urine pH Urine WBC (Auto) Urine Creatinine Urine Total Protein Fluid Total Protein Vancomycin Trough Rheumatoid Factor Complement C4 Miscellaneous Test Crossmatch 10/25/16 10/25/16 10/25/16 04:32 11:48 17:22 WBC RBC Hgb Hct MCV MCH MCHC RDW Plt Count Lymph % (Auto) [place] % (Auto) Lymph # [place] # Baso # Seg Neutrophils % Seg Neuts % (Manual) Lymphocytes % (Manual) Monocytes % (Manual) Eosinophils % (Manual) Basophils % (Manual) Nucleated RBC % Seg Neutrophils # Seg Neutrophils # Man Lymphocytes # (Manual) Monocytes # (Manual) Eosinophils # (Manual) Basophils # (Manual) PT INR Fibrinogen dRVVT Confirm Interp Factor V Activity POC ABG pH POC ABG pCO2 POC ABG pO2 ABG pO2 ABG HCO3 ABG Base Excess ABG Hemoglobin Oxyhemoglobin Sodium Potassium Chloride Carbon Dioxide BUN Creatinine Glucose POC Glucose 124 H 171 H 120 H Lactic Acid Calcium Phosphorus Magnesium Direct Bilirubin AST ALT Alkaline Phosphatase Lactate Dehydrogenase Troponin T C-Reactive Protein Total Protein Albumin Prealbumin Triglycerides Cholesterol LDL Cholesterol Direct HDL Cholesterol Urine pH Urine WBC (Auto) Urine Creatinine Urine Total Protein Fluid Total Protein Vancomycin Trough Rheumatoid Factor Complement C4 Miscellaneous Test Crossmatch 10/26/16 10/26/16 10/26/16 04:54 07:06 07:06 WBC 16.9 H RBC 3.06 L Hgb 9.1 L Hct 26.9 L MCV MCH MCHC RDW 16.9 H Plt Count Lymph % (Auto) [place] % (Auto) Lymph # [place] # Baso # Seg Neutrophils % Seg Neuts % (Manual) 71.0 H Lymphocytes % (Manual) 5.0 L Monocytes % (Manual) 12.0 H Eosinophils % (Manual) Basophils % (Manual) Nucleated RBC % Seg Neutrophils # Seg Neutrophils # Man 12.0 H Lymphocytes # (Manual) 0.8 L Monocytes # (Manual) 2.0 H Eosinophils # (Manual) Basophils # (Manual) PT INR Fibrinogen dRVVT Confirm Interp Factor V Activity POC ABG pH POC ABG pCO2 POC ABG pO2 ABG pO2 ABG HCO3 ABG Base Excess ABG Hemoglobin Oxyhemoglobin Sodium 135 L Potassium Chloride 97.1 L Carbon Dioxide BUN 73 H Creatinine 2.2 H Glucose 117 H POC Glucose 123 H Lactic Acid Calcium Phosphorus 1.70 L Magnesium Direct Bilirubin AST ALT Alkaline Phosphatase Lactate Dehydrogenase Troponin T C-Reactive Protein Total Protein Albumin Prealbumin Triglycerides Cholesterol LDL Cholesterol Direct HDL Cholesterol Urine pH Urine WBC (Auto) Urine Creatinine Urine Total Protein Fluid Total Protein Vancomycin Trough Rheumatoid Factor Complement C4 Miscellaneous Test Crossmatch 10/26/16 10/26/16 10/26/16 12:12 17:29 23:42 WBC RBC Hgb Hct MCV MCH MCHC RDW Plt Count Lymph % (Auto) [place] % (Auto) Lymph # [place] # Baso # Seg Neutrophils % Seg Neuts % (Manual) Lymphocytes % (Manual) Monocytes % (Manual) Eosinophils % (Manual) Basophils % (Manual) Nucleated RBC % Seg Neutrophils # Seg Neutrophils # Man Lymphocytes # (Manual) Monocytes # (Manual) Eosinophils # (Manual) Basophils # (Manual) PT INR Fibrinogen dRVVT Confirm Interp Factor V Activity POC ABG pH POC ABG pCO2 POC ABG pO2 ABG pO2 ABG HCO3 ABG Base Excess ABG Hemoglobin Oxyhemoglobin Sodium Potassium Chloride Carbon Dioxide BUN Creatinine Glucose POC Glucose 126 H 161 H 118 H Lactic Acid Calcium Phosphorus Magnesium Direct Bilirubin AST ALT Alkaline Phosphatase Lactate Dehydrogenase Troponin T C-Reactive Protein Total Protein Albumin Prealbumin Triglycerides Cholesterol LDL Cholesterol Direct HDL Cholesterol Urine pH Urine WBC (Auto) Urine Creatinine Urine Total Protein Fluid Total Protein Vancomycin Trough Rheumatoid Factor Complement C4 Miscellaneous Test Crossmatch 10/27/16 10/27/16 10/27/16 05:03 06:30 06:30 WBC 13.9 H RBC 3.09 L Hgb 9.2 L Hct 27.5 L MCV MCH MCHC RDW 17.0 H Plt Count Lymph % (Auto) [place] % (Auto) Lymph # [place] # Baso # Seg Neutrophils % Seg Neuts % (Manual) 78.0 H Lymphocytes % (Manual) Monocytes % (Manual) Eosinophils % (Manual) Basophils % (Manual) Nucleated RBC % 2.0 H Seg Neutrophils # Seg Neutrophils # Man 10.8 H Lymphocytes # (Manual) Monocytes # (Manual) 1.0 H Eosinophils # (Manual) Basophils # (Manual) PT INR Fibrinogen dRVVT Confirm Interp Factor V Activity POC ABG pH POC ABG pCO2 POC ABG pO2 ABG pO2 ABG HCO3 ABG Base Excess ABG Hemoglobin Oxyhemoglobin Sodium Potassium Chloride Carbon Dioxide BUN 40 H Creatinine 1.5 H Glucose 135 H POC Glucose 107 H Lactic Acid Calcium 8.3 L Phosphorus 1.30 L D Magnesium Direct Bilirubin AST ALT Alkaline Phosphatase Lactate Dehydrogenase Troponin T C-Reactive Protein Total Protein Albumin Prealbumin Triglycerides Cholesterol LDL Cholesterol Direct HDL Cholesterol Urine pH Urine WBC (Auto) Urine Creatinine Urine Total Protein Fluid Total Protein Vancomycin Trough Rheumatoid Factor Complement C4 Miscellaneous Test Crossmatch 10/27/16 10/27/16 10/27/16 13:27 18:07 23:40 WBC RBC Hgb Hct MCV MCH MCHC RDW Plt Count Lymph % (Auto) [place] % (Auto) Lymph # [place] # Baso # Seg Neutrophils % Seg Neuts % (Manual) Lymphocytes % (Manual) Monocytes % (Manual) Eosinophils % (Manual) Basophils % (Manual) Nucleated RBC % Seg Neutrophils # Seg Neutrophils # Man Lymphocytes # (Manual) Monocytes # (Manual) Eosinophils # (Manual) Basophils # (Manual) PT INR Fibrinogen dRVVT Confirm Interp Factor V Activity POC ABG pH POC ABG pCO2 POC ABG pO2 ABG pO2 ABG HCO3 ABG Base Excess ABG Hemoglobin Oxyhemoglobin Sodium Potassium Chloride Carbon Dioxide BUN Creatinine Glucose POC Glucose 117 H 121 H 118 H Lactic Acid Calcium Phosphorus Magnesium Direct Bilirubin AST ALT Alkaline Phosphatase Lactate Dehydrogenase Troponin T C-Reactive Protein Total Protein Albumin Prealbumin Triglycerides Cholesterol LDL Cholesterol Direct HDL Cholesterol Urine pH Urine WBC (Auto) Urine Creatinine Urine Total Protein Fluid Total Protein Vancomycin Trough Rheumatoid Factor Complement C4 Miscellaneous Test Crossmatch 10/28/16 10/28/16 10/28/16 05:48 06:45 06:45 WBC 14.7 H RBC 3.05 L Hgb 9.0 L Hct 26.9 L MCV MCH MCHC RDW 16.8 H Plt Count Lymph % (Auto) 8.2 L [place] % (Auto) 8.4 H Lymph # [place] # 1.2 H Baso # Seg Neutrophils % 81.9 H Seg Neuts % (Manual) Lymphocytes % (Manual) Monocytes % (Manual) Eosinophils % (Manual) Basophils % (Manual) Nucleated RBC % Seg Neutrophils # 12.1 H Seg Neutrophils # Man Lymphocytes # (Manual) Monocytes # (Manual) Eosinophils # (Manual) Basophils # (Manual) PT INR Fibrinogen dRVVT Confirm Interp Factor V Activity POC ABG pH POC ABG pCO2 POC ABG pO2 ABG pO2 ABG HCO3 ABG Base Excess ABG Hemoglobin Oxyhemoglobin Sodium Potassium Chloride Carbon Dioxide BUN 60 H Creatinine 1.9 H Glucose 120 H POC Glucose 114 H Lactic Acid Calcium Phosphorus Magnesium Direct Bilirubin AST ALT Alkaline Phosphatase Lactate Dehydrogenase Troponin T C-Reactive Protein Total Protein Albumin Prealbumin Triglycerides Cholesterol LDL Cholesterol Direct HDL Cholesterol Urine pH Urine WBC (Auto) Urine Creatinine Urine Total Protein Fluid Total Protein Vancomycin Trough Rheumatoid Factor Complement C4 Miscellaneous Test Crossmatch 10/28/16 10/28/16 10/29/16 17:08 23:50 05:10 WBC RBC Hgb Hct MCV MCH MCHC RDW Plt Count Lymph % (Auto) [place] % (Auto) Lymph # [place] # Baso # Seg Neutrophils % Seg Neuts % (Manual) Lymphocytes % (Manual) Monocytes % (Manual) Eosinophils % (Manual) Basophils % (Manual) Nucleated RBC % Seg Neutrophils # Seg Neutrophils # Man Lymphocytes # (Manual) Monocytes # (Manual) Eosinophils # (Manual) Basophils # (Manual) PT INR Fibrinogen dRVVT Confirm Interp Factor V Activity POC ABG pH POC ABG pCO2 POC ABG pO2 ABG pO2 ABG HCO3 ABG Base Excess ABG Hemoglobin Oxyhemoglobin Sodium Potassium Chloride Carbon Dioxide BUN Creatinine Glucose POC Glucose 109 H 110 H 124 H Lactic Acid Calcium Phosphorus Magnesium Direct Bilirubin AST ALT Alkaline Phosphatase Lactate Dehydrogenase Troponin T C-Reactive Protein Total Protein Albumin Prealbumin Triglycerides Cholesterol LDL Cholesterol Direct HDL Cholesterol Urine pH Urine WBC (Auto) Urine Creatinine Urine Total Protein Fluid Total Protein Vancomycin Trough Rheumatoid Factor Complement C4 Miscellaneous Test Crossmatch 10/29/16 10/29/16 10/29/16 07:45 07:45 12:19 WBC 14.7 H RBC 3.15 L Hgb 9.3 L Hct 28.9 L MCV MCH MCHC RDW 17.0 H Plt Count Lymph % (Auto) 11.9 L [place] % (Auto) 8.6 H Lymph # [place] # 1.3 H Baso # Seg Neutrophils % 78.1 H Seg Neuts % (Manual) Lymphocytes % (Manual) Monocytes % (Manual) Eosinophils % (Manual) Basophils % (Manual) Nucleated RBC % Seg Neutrophils # 11.4 H Seg Neutrophils # Man Lymphocytes # (Manual) Monocytes # (Manual) Eosinophils # (Manual) Basophils # (Manual) PT INR Fibrinogen dRVVT Confirm Interp Factor V Activity POC ABG pH POC ABG pCO2 POC ABG pO2 ABG pO2 ABG HCO3 ABG Base Excess ABG Hemoglobin Oxyhemoglobin Sodium Potassium 5.1 H Chloride Carbon Dioxide 19 L BUN 78 H Creatinine 2.2 H Glucose 116 H POC Glucose 118 H Lactic Acid Calcium Phosphorus Magnesium Direct Bilirubin AST ALT Alkaline Phosphatase Lactate Dehydrogenase Troponin T C-Reactive Protein Total Protein Albumin Prealbumin Triglycerides Cholesterol LDL Cholesterol Direct HDL Cholesterol Urine pH Urine WBC (Auto) Urine Creatinine Urine Total Protein Fluid Total Protein Vancomycin Trough Rheumatoid Factor Complement C4 Miscellaneous Test Crossmatch 10/29/16 10/30/16 10/30/16 17:49 01:52 03:28 WBC RBC Hgb Hct MCV MCH MCHC RDW Plt Count Lymph % (Auto) [place] % (Auto) Lymph # [place] # Baso # Seg Neutrophils % Seg Neuts % (Manual) Lymphocytes % (Manual) Monocytes % (Manual) Eosinophils % (Manual) Basophils % (Manual) Nucleated RBC % Seg Neutrophils # Seg Neutrophils # Man Lymphocytes # (Manual) Monocytes # (Manual) Eosinophils # (Manual) Basophils # (Manual) PT INR Fibrinogen dRVVT Confirm Interp Factor V Activity POC ABG pH POC ABG pCO2 POC ABG pO2 ABG pO2 ABG HCO3 ABG Base Excess ABG Hemoglobin Oxyhemoglobin Sodium Potassium 5.4 H Chloride 97.5 L Carbon Dioxide 19 L BUN 90 H Creatinine 2.5 H Glucose POC Glucose 120 H 129 H Lactic Acid Calcium Phosphorus 5.20 H Magnesium Direct Bilirubin AST ALT Alkaline Phosphatase Lactate Dehydrogenase Troponin T C-Reactive Protein Total Protein Albumin Prealbumin Triglycerides Cholesterol LDL Cholesterol Direct HDL Cholesterol Urine pH Urine WBC (Auto) Urine Creatinine Urine Total Protein Fluid Total Protein Vancomycin Trough Rheumatoid Factor Complement C4 Miscellaneous Test Crossmatch 10/30/16 10/30/16 10/30/16 03:28 08:19 08:19 WBC 11.6 H 15.9 H RBC 2.75 L 2.82 L Hgb 7.9 L 8.3 L Hct 24.2 L 25.2 L MCV MCH MCHC RDW 16.7 H 17.2 H Plt Count Lymph % (Auto) [place] % (Auto) 9.8 H Lymph # [place] # 1.1 H Baso # Seg Neutrophils % 74.2 H Seg Neuts % (Manual) Lymphocytes % (Manual) Monocytes % (Manual) Eosinophils % (Manual) Basophils % (Manual) Nucleated RBC % Seg Neutrophils # 8.6 H Seg Neutrophils # Man Lymphocytes # (Manual) Monocytes # (Manual) Eosinophils # (Manual) Basophils # (Manual) PT INR Fibrinogen dRVVT Confirm Interp Factor V Activity POC ABG pH POC ABG pCO2 POC ABG pO2 ABG pO2 ABG HCO3 ABG Base Excess ABG Hemoglobin Oxyhemoglobin Sodium Potassium 5.3 H Chloride 97.4 L Carbon Dioxide 19 L BUN 93 H Creatinine 2.6 H Glucose POC Glucose Lactic Acid Calcium Phosphorus Magnesium Direct Bilirubin AST ALT Alkaline Phosphatase Lactate Dehydrogenase Troponin T C-Reactive Protein Total Protein Albumin Prealbumin Triglycerides Cholesterol LDL Cholesterol Direct HDL Cholesterol Urine pH Urine WBC (Auto) Urine Creatinine Urine Total Protein Fluid Total Protein Vancomycin Trough Rheumatoid Factor Complement C4 Miscellaneous Test Crossmatch 10/30/16 10/30/16 10/31/16 17:11 23:56 00:40 WBC RBC Hgb Hct MCV MCH MCHC RDW Plt Count Lymph % (Auto) [place] % (Auto) Lymph # [place] # Baso # Seg Neutrophils % Seg Neuts % (Manual) Lymphocytes % (Manual) Monocytes % (Manual) Eosinophils % (Manual) Basophils % (Manual) Nucleated RBC % Seg Neutrophils # Seg Neutrophils # Man Lymphocytes # (Manual) Monocytes # (Manual) Eosinophils # (Manual) Basophils # (Manual) PT INR Fibrinogen dRVVT Confirm Interp Factor V Activity POC ABG pH POC ABG pCO2 POC ABG pO2 ABG pO2 ABG HCO3 ABG Base Excess ABG Hemoglobin Oxyhemoglobin Sodium Potassium Chloride Carbon Dioxide BUN Creatinine Glucose POC Glucose 106 H 117 H 120 H Lactic Acid Calcium Phosphorus Magnesium Direct Bilirubin AST ALT Alkaline Phosphatase Lactate Dehydrogenase Troponin T C-Reactive Protein Total Protein Albumin Prealbumin Triglycerides Cholesterol LDL Cholesterol Direct HDL Cholesterol Urine pH Urine WBC (Auto) Urine Creatinine Urine Total Protein Fluid Total Protein Vancomycin Trough Rheumatoid Factor Complement C4 Miscellaneous Test Crossmatch 10/31/16 10/31/16 10/31/16 05:43 07:15 07:15 WBC 12.1 H RBC 2.63 L Hgb 7.7 L Hct 23.3 L MCV MCH MCHC RDW 16.7 H Plt Count Lymph % (Auto) 11.7 L [place] % (Auto) 7.7 H Lymph # [place] # 0.9 H Baso # Seg Neutrophils % 78.0 H Seg Neuts % (Manual) Lymphocytes % (Manual) Monocytes % (Manual) Eosinophils % (Manual) Basophils % (Manual) Nucleated RBC % Seg Neutrophils # 9.4 H Seg Neutrophils # Man Lymphocytes # (Manual) Monocytes # (Manual) Eosinophils # (Manual) Basophils # (Manual) PT INR Fibrinogen dRVVT Confirm Interp Factor V Activity POC ABG pH POC ABG pCO2 POC ABG pO2 ABG pO2 ABG HCO3 ABG Base Excess ABG Hemoglobin Oxyhemoglobin Sodium Potassium Chloride 96.4 L Carbon Dioxide 21 L BUN 99 H Creatinine 2.6 H Glucose 144 H POC Glucose 125 H Lactic Acid Calcium Phosphorus 4.80 H Magnesium Direct Bilirubin AST ALT Alkaline Phosphatase Lactate Dehydrogenase Troponin T C-Reactive Protein Total Protein Albumin Prealbumin Triglycerides Cholesterol LDL Cholesterol Direct HDL Cholesterol Urine pH Urine WBC (Auto) Urine Creatinine Urine Total Protein Fluid Total Protein Vancomycin Trough Rheumatoid Factor Complement C4 Miscellaneous Test Crossmatch 10/31/16 10/31/16 11/01/16 11:46 18:34 00:20 WBC RBC Hgb Hct MCV MCH MCHC RDW Plt Count Lymph % (Auto) [place] % (Auto) Lymph # [place] # Baso # Seg Neutrophils % Seg Neuts % (Manual) Lymphocytes % (Manual) Monocytes % (Manual) Eosinophils % (Manual) Basophils % (Manual) Nucleated RBC % Seg Neutrophils # Seg Neutrophils # Man Lymphocytes # (Manual) Monocytes # (Manual) Eosinophils # (Manual) Basophils # (Manual) PT INR Fibrinogen dRVVT Confirm Interp Factor V Activity POC ABG pH POC ABG pCO2 POC ABG pO2 ABG pO2 ABG HCO3 ABG Base Excess ABG Hemoglobin Oxyhemoglobin Sodium Potassium Chloride Carbon Dioxide BUN Creatinine Glucose POC Glucose 159 H 140 H 132 H Lactic Acid Calcium Phosphorus Magnesium Direct Bilirubin AST ALT Alkaline Phosphatase Lactate Dehydrogenase Troponin T C-Reactive Protein Total Protein Albumin Prealbumin Triglycerides Cholesterol LDL Cholesterol Direct HDL Cholesterol Urine pH Urine WBC (Auto) Urine Creatinine Urine Total Protein Fluid Total Protein Vancomycin Trough Rheumatoid Factor Complement C4 Miscellaneous Test Crossmatch 11/01/16 11/01/16 11/01/16 04:55 04:55 06:11 WBC 11.2 H RBC 2.68 L Hgb 7.5 L Hct 23.7 L MCV MCH MCHC RDW 16.1 H Plt Count Lymph % (Auto) [place] % (Auto) 9.8 H Lymph # [place] # 1.1 H Baso # Seg Neutrophils % 70.8 H Seg Neuts % (Manual) Lymphocytes % (Manual) Monocytes % (Manual) Eosinophils % (Manual) Basophils % (Manual) Nucleated RBC % Seg Neutrophils # 7.9 H Seg Neutrophils # Man Lymphocytes # (Manual) Monocytes # (Manual) Eosinophils # (Manual) Basophils # (Manual) PT INR Fibrinogen dRVVT Confirm Interp Factor V Activity POC ABG pH POC ABG pCO2 POC ABG pO2 ABG pO2 ABG HCO3 ABG Base Excess ABG Hemoglobin Oxyhemoglobin Sodium Potassium 3.3 L D Chloride Carbon Dioxide BUN 61 H Creatinine 1.9 H Glucose 114 H POC Glucose 115 H Lactic Acid Calcium Phosphorus 1.80 L D Magnesium Direct Bilirubin AST ALT Alkaline Phosphatase Lactate Dehydrogenase Troponin T C-Reactive Protein Total Protein Albumin Prealbumin Triglycerides Cholesterol LDL Cholesterol Direct HDL Cholesterol Urine pH Urine WBC (Auto) Urine Creatinine Urine Total Protein Fluid Total Protein Vancomycin Trough Rheumatoid Factor Complement C4 Miscellaneous Test Crossmatch 11/01/16 11/01/16 11/01/16 12:29 18:23 23:58 WBC RBC Hgb Hct MCV MCH MCHC RDW Plt Count Lymph % (Auto) [place] % (Auto) Lymph # [place] # Baso # Seg Neutrophils % Seg Neuts % (Manual) Lymphocytes % (Manual) Monocytes % (Manual) Eosinophils % (Manual) Basophils % (Manual) Nucleated RBC % Seg Neutrophils # Seg Neutrophils # Man Lymphocytes # (Manual) Monocytes # (Manual) Eosinophils # (Manual) Basophils # (Manual) PT INR Fibrinogen dRVVT Confirm Interp Factor V Activity POC ABG pH POC ABG pCO2 POC ABG pO2 ABG pO2 ABG HCO3 ABG Base Excess ABG Hemoglobin Oxyhemoglobin Sodium Potassium Chloride Carbon Dioxide BUN Creatinine Glucose POC Glucose 142 H 143 H 128 H Lactic Acid Calcium Phosphorus Magnesium Direct Bilirubin AST ALT Alkaline Phosphatase Lactate Dehydrogenase Troponin T C-Reactive Protein Total Protein Albumin Prealbumin Triglycerides Cholesterol LDL Cholesterol Direct HDL Cholesterol Urine pH Urine WBC (Auto) Urine Creatinine Urine Total Protein Fluid Total Protein Vancomycin Trough Rheumatoid Factor Complement C4 Miscellaneous Test Crossmatch 11/02/16 11/02/16 11/02/16 04:16 05:29 11:58 WBC RBC Hgb Hct MCV MCH MCHC RDW Plt Count Lymph % (Auto) [place] % (Auto) Lymph # [place] # Baso # Seg Neutrophils % Seg Neuts % (Manual) Lymphocytes % (Manual) Monocytes % (Manual) Eosinophils % (Manual) Basophils % (Manual) Nucleated RBC % Seg Neutrophils # Seg Neutrophils # Man Lymphocytes # (Manual) Monocytes # (Manual) Eosinophils # (Manual) Basophils # (Manual) PT INR Fibrinogen dRVVT Confirm Interp Factor V Activity POC ABG pH POC ABG pCO2 POC ABG pO2 ABG pO2 ABG HCO3 ABG Base Excess ABG Hemoglobin Oxyhemoglobin Sodium Potassium 3.1 L Chloride Carbon Dioxide BUN 73 H Creatinine 2.3 H Glucose 112 H POC Glucose 135 H 149 H Lactic Acid Calcium Phosphorus Magnesium Direct Bilirubin AST ALT Alkaline Phosphatase Lactate Dehydrogenase Troponin T C-Reactive Protein Total Protein Albumin Prealbumin Triglycerides Cholesterol LDL Cholesterol Direct HDL Cholesterol Urine pH Urine WBC (Auto) Urine Creatinine Urine Total Protein Fluid Total Protein Vancomycin Trough Rheumatoid Factor Complement C4 Miscellaneous Test Crossmatch 11/02/16 11/02/16 11/03/16 17:42 22:54 06:00 WBC RBC Hgb Hct MCV MCH MCHC RDW Plt Count Lymph % (Auto) [place] % (Auto) Lymph # [place] # Baso # Seg Neutrophils % Seg Neuts % (Manual) Lymphocytes % (Manual) Monocytes % (Manual) Eosinophils % (Manual) Basophils % (Manual) Nucleated RBC % Seg Neutrophils # Seg Neutrophils # Man Lymphocytes # (Manual) Monocytes # (Manual) Eosinophils # (Manual) Basophils # (Manual) PT INR Fibrinogen dRVVT Confirm Interp Factor V Activity POC ABG pH POC ABG pCO2 POC ABG pO2 ABG pO2 ABG HCO3 ABG Base Excess ABG Hemoglobin Oxyhemoglobin Sodium Potassium Chloride 96.7 L Carbon Dioxide BUN 41 H Creatinine 1.5 H Glucose 145 H POC Glucose 182 H 115 H Lactic Acid Calcium Phosphorus 1.60 L D Magnesium 1.50 L Direct Bilirubin AST ALT Alkaline Phosphatase Lactate Dehydrogenase Troponin T C-Reactive Protein Total Protein Albumin Prealbumin Triglycerides Cholesterol LDL Cholesterol Direct HDL Cholesterol Urine pH Urine WBC (Auto) Urine Creatinine Urine Total Protein Fluid Total Protein Vancomycin Trough Rheumatoid Factor Complement C4 Miscellaneous Test Crossmatch 11/03/16 11/03/16 11/03/16 11:53 17:45 23:37 WBC RBC Hgb Hct MCV MCH MCHC RDW Plt Count Lymph % (Auto) [place] % (Auto) Lymph # [place] # Baso # Seg Neutrophils % Seg Neuts % (Manual) Lymphocytes % (Manual) Monocytes % (Manual) Eosinophils % (Manual) Basophils % (Manual) Nucleated RBC % Seg Neutrophils # Seg Neutrophils # Man Lymphocytes # (Manual) Monocytes # (Manual) Eosinophils # (Manual) Basophils # (Manual) PT INR Fibrinogen dRVVT Confirm Interp Factor V Activity POC ABG pH POC ABG pCO2 POC ABG pO2 ABG pO2 ABG HCO3 ABG Base Excess ABG Hemoglobin Oxyhemoglobin Sodium Potassium Chloride Carbon Dioxide BUN Creatinine Glucose POC Glucose 131 H 134 H 113 H Lactic Acid Calcium Phosphorus Magnesium Direct Bilirubin AST ALT Alkaline Phosphatase Lactate Dehydrogenase Troponin T C-Reactive Protein Total Protein Albumin Prealbumin Triglycerides Cholesterol LDL Cholesterol Direct HDL Cholesterol Urine pH Urine WBC (Auto) Urine Creatinine Urine Total Protein Fluid Total Protein Vancomycin Trough Rheumatoid Factor Complement C4 Miscellaneous Test Crossmatch 11/04/16 11/04/16 11/04/16 05:41 06:00 12:10 WBC RBC Hgb Hct MCV MCH MCHC RDW Plt Count Lymph % (Auto) [place] % (Auto) Lymph # [place] # Baso # Seg Neutrophils % Seg Neuts % (Manual) Lymphocytes % (Manual) Monocytes % (Manual) Eosinophils % (Manual) Basophils % (Manual) Nucleated RBC % Seg Neutrophils # Seg Neutrophils # Man Lymphocytes # (Manual) Monocytes # (Manual) Eosinophils # (Manual) Basophils # (Manual) PT INR Fibrinogen dRVVT Confirm Interp Factor V Activity POC ABG pH POC ABG pCO2 POC ABG pO2 ABG pO2 ABG HCO3 ABG Base Excess ABG Hemoglobin Oxyhemoglobin Sodium Potassium Chloride 96.7 L Carbon Dioxide BUN 52 H Creatinine 1.9 H Glucose 126 H POC Glucose 137 H 191 H Lactic Acid Calcium Phosphorus Magnesium Direct Bilirubin AST ALT Alkaline Phosphatase Lactate Dehydrogenase Troponin T C-Reactive Protein Total Protein Albumin Prealbumin Triglycerides Cholesterol LDL Cholesterol Direct HDL Cholesterol Urine pH Urine WBC (Auto) Urine Creatinine Urine Total Protein Fluid Total Protein Vancomycin Trough Rheumatoid Factor Complement C4 Miscellaneous Test Crossmatch 11/04/16 11/05/16 11/05/16 22:57 03:10 05:10 WBC RBC Hgb Hct MCV MCH MCHC RDW Plt Count Lymph % (Auto) [place] % (Auto) Lymph # [place] # Baso # Seg Neutrophils % Seg Neuts % (Manual) Lymphocytes % (Manual) Monocytes % (Manual) Eosinophils % (Manual) Basophils % (Manual) Nucleated RBC % Seg Neutrophils # Seg Neutrophils # Man Lymphocytes # (Manual) Monocytes # (Manual) Eosinophils # (Manual) Basophils # (Manual) PT INR Fibrinogen dRVVT Confirm Interp Factor V Activity POC ABG pH POC ABG pCO2 POC ABG pO2 ABG pO2 ABG HCO3 ABG Base Excess ABG Hemoglobin Oxyhemoglobin Sodium 136 L Potassium Chloride 97.2 L Carbon Dioxide BUN 32 H Creatinine 1.3 H Glucose 123 H POC Glucose 125 H 108 H Lactic Acid Calcium 7.8 L Phosphorus Magnesium Direct Bilirubin AST ALT Alkaline Phosphatase Lactate Dehydrogenase Troponin T C-Reactive Protein Total Protein Albumin Prealbumin Triglycerides Cholesterol LDL Cholesterol Direct HDL Cholesterol Urine pH Urine WBC (Auto) Urine Creatinine Urine Total Protein Fluid Total Protein Vancomycin Trough Rheumatoid Factor Complement C4 Miscellaneous Test Crossmatch 11/05/16 11/05/16 11/05/16 12:23 13:09 13:25 WBC RBC Hgb Hct MCV MCH MCHC RDW Plt Count Lymph % (Auto) [place] % (Auto) Lymph # [place] # Baso # Seg Neutrophils % Seg Neuts % (Manual) Lymphocytes % (Manual) Monocytes % (Manual) Eosinophils % (Manual) Basophils % (Manual) Nucleated RBC % Seg Neutrophils # Seg Neutrophils # Man Lymphocytes # (Manual) Monocytes # (Manual) Eosinophils # (Manual) Basophils # (Manual) PT INR Fibrinogen dRVVT Confirm Interp Factor V Activity POC ABG pH POC ABG pCO2 POC ABG pO2 ABG pO2 ABG HCO3 ABG Base Excess ABG Hemoglobin Oxyhemoglobin Sodium Potassium Chloride Carbon Dioxide BUN Creatinine Glucose POC Glucose 124 H Lactic Acid Calcium Phosphorus Magnesium Direct Bilirubin AST ALT Alkaline Phosphatase Lactate Dehydrogenase Troponin T C-Reactive Protein 11.40 H Total Protein Albumin Prealbumin Triglycerides Cholesterol LDL Cholesterol Direct HDL Cholesterol Urine pH 9.0 H Urine WBC (Auto) Urine Creatinine Urine Total Protein Fluid Total Protein Vancomycin Trough Rheumatoid Factor Complement C4 Miscellaneous Test Crossmatch 11/05/16 11/05/16 11/05/16 13:25 17:54 23:42 WBC RBC Hgb Hct MCV MCH MCHC RDW Plt Count Lymph % (Auto) [place] % (Auto) Lymph # [place] # Baso # Seg Neutrophils % Seg Neuts % (Manual) Lymphocytes % (Manual) Monocytes % (Manual) Eosinophils % (Manual) Basophils % (Manual) Nucleated RBC % Seg Neutrophils # Seg Neutrophils # Man Lymphocytes # (Manual) Monocytes # (Manual) Eosinophils # (Manual) Basophils # (Manual) PT INR Fibrinogen dRVVT Confirm Interp Factor V Activity POC ABG pH POC ABG pCO2 POC ABG pO2 ABG pO2 ABG HCO3 ABG Base Excess ABG Hemoglobin Oxyhemoglobin Sodium Potassium Chloride Carbon Dioxide BUN Creatinine Glucose POC Glucose 114 H 134 H Lactic Acid Calcium Phosphorus Magnesium Direct Bilirubin AST ALT Alkaline Phosphatase Lactate Dehydrogenase Troponin T C-Reactive Protein Total Protein Albumin Prealbumin Triglycerides Cholesterol LDL Cholesterol Direct HDL Cholesterol Urine pH Urine WBC (Auto) Urine Creatinine Urine Total Protein Fluid Total Protein Vancomycin Trough Rheumatoid Factor Complement C4 Miscellaneous Test Flexitest 1 H Crossmatch 11/06/16 11/06/16 11/06/16 04:56 06:25 06:25 WBC RBC 2.50 L Hgb 7.3 L Hct 22.5 L MCV MCH MCHC RDW 16.9 H Plt Count Lymph % (Auto) [place] % (Auto) 10.5 H Lymph # [place] # 1.1 H Baso # Seg Neutrophils % Seg Neuts % (Manual) Lymphocytes % (Manual) Monocytes % (Manual) Eosinophils % (Manual) Basophils % (Manual) Nucleated RBC % Seg Neutrophils # Seg Neutrophils # Man Lymphocytes # (Manual) Monocytes # (Manual) Eosinophils # (Manual) Basophils # (Manual) PT INR Fibrinogen dRVVT Confirm Interp Factor V Activity POC ABG pH POC ABG pCO2 POC ABG pO2 ABG pO2 ABG HCO3 ABG Base Excess ABG Hemoglobin Oxyhemoglobin Sodium Potassium 5.1 H Chloride 95.9 L Carbon Dioxide BUN 52 H Creatinine 1.8 H Glucose 117 H POC Glucose 120 H Lactic Acid Calcium Phosphorus Magnesium Direct Bilirubin AST 103 H ALT 77 H Alkaline Phosphatase 285 H Lactate Dehydrogenase Troponin T C-Reactive Protein Total Protein 6.2 L Albumin 1.8 L Prealbumin 0.180 L Triglycerides Cholesterol LDL Cholesterol Direct HDL Cholesterol Urine pH Urine WBC (Auto) Urine Creatinine Urine Total Protein Fluid Total Protein Vancomycin Trough Rheumatoid Factor Complement C4 Miscellaneous Test Crossmatch 11/06/16 11/06/16 11/06/16 11:56 17:14 23:52 WBC RBC Hgb Hct MCV MCH MCHC RDW Plt Count Lymph % (Auto) [place] % (Auto) Lymph # [place] # Baso # Seg Neutrophils % Seg Neuts % (Manual) Lymphocytes % (Manual) Monocytes % (Manual) Eosinophils % (Manual) Basophils % (Manual) Nucleated RBC % Seg Neutrophils # Seg Neutrophils # Man Lymphocytes # (Manual) Monocytes # (Manual) Eosinophils # (Manual) Basophils # (Manual) PT INR Fibrinogen dRVVT Confirm Interp Factor V Activity POC ABG pH POC ABG pCO2 POC ABG pO2 ABG pO2 ABG HCO3 ABG Base Excess ABG Hemoglobin Oxyhemoglobin Sodium Potassium Chloride Carbon Dioxide BUN Creatinine Glucose POC Glucose 141 H 125 H 130 H Lactic Acid Calcium Phosphorus Magnesium Direct Bilirubin AST ALT Alkaline Phosphatase Lactate Dehydrogenase Troponin T C-Reactive Protein Total Protein Albumin Prealbumin Triglycerides Cholesterol LDL Cholesterol Direct HDL Cholesterol Urine pH Urine WBC (Auto) Urine Creatinine Urine Total Protein Fluid Total Protein Vancomycin Trough Rheumatoid Factor Complement C4 Miscellaneous Test Crossmatch 11/07/16 11/07/16 11/07/16 06:30 06:30 09:37 WBC RBC 2.18 L Hgb 6.3 L Hct 19.7 L* MCV MCH MCHC RDW 16.8 H Plt Count Lymph % (Auto) [place] % (Auto) 10.0 H Lymph # [place] # 1.0 H Baso # Seg Neutrophils % Seg Neuts % (Manual) Lymphocytes % (Manual) Monocytes % (Manual) Eosinophils % (Manual) Basophils % (Manual) Nucleated RBC % Seg Neutrophils # Seg Neutrophils # Man Lymphocytes # (Manual) Monocytes # (Manual) Eosinophils # (Manual) Basophils # (Manual) PT INR Fibrinogen dRVVT Confirm Interp Factor V Activity POC ABG pH POC ABG pCO2 POC ABG pO2 ABG pO2 ABG HCO3 ABG Base Excess ABG Hemoglobin Oxyhemoglobin Sodium 135 L Potassium Chloride 95.6 L Carbon Dioxide BUN 70 H Creatinine 2.0 H Glucose 126 H POC Glucose Lactic Acid Calcium Phosphorus Magnesium Direct Bilirubin AST ALT Alkaline Phosphatase Lactate Dehydrogenase Troponin T C-Reactive Protein Total Protein Albumin Prealbumin Triglycerides Cholesterol LDL Cholesterol Direct HDL Cholesterol Urine pH Urine WBC (Auto) Urine Creatinine Urine Total Protein Fluid Total Protein Vancomycin Trough Rheumatoid Factor Complement C4 Miscellaneous Test Crossmatch See Detail 11/07/16 11/07/16 11/07/16 12:52 18:51 21:26 WBC RBC Hgb Hct MCV MCH MCHC RDW Plt Count Lymph % (Auto) [place] % (Auto) Lymph # [place] # Baso # Seg Neutrophils % Seg Neuts % (Manual) Lymphocytes % (Manual) Monocytes % (Manual) Eosinophils % (Manual) Basophils % (Manual) Nucleated RBC % Seg Neutrophils # Seg Neutrophils # Man Lymphocytes # (Manual) Monocytes # (Manual) Eosinophils # (Manual) Basophils # (Manual) PT INR Fibrinogen dRVVT Confirm Interp Factor V Activity POC ABG pH 7.523 H POC ABG pCO2 34.6 L POC ABG pO2 53 L ABG pO2 ABG HCO3 ABG Base Excess ABG Hemoglobin Oxyhemoglobin Sodium Potassium Chloride Carbon Dioxide BUN Creatinine Glucose POC Glucose 142 H 155 H Lactic Acid Calcium Phosphorus Magnesium Direct Bilirubin AST ALT Alkaline Phosphatase Lactate Dehydrogenase Troponin T C-Reactive Protein Total Protein Albumin Prealbumin Triglycerides Cholesterol LDL Cholesterol Direct HDL Cholesterol Urine pH Urine WBC (Auto) Urine Creatinine Urine Total Protein Fluid Total Protein Vancomycin Trough Rheumatoid Factor Complement C4 Miscellaneous Test Crossmatch 11/07/16 11/08/16 11/08/16 21:34 13:03 23:37 WBC RBC 2.63 L Hgb 7.7 L Hct 22.7 L MCV MCH MCHC RDW 17.0 H Plt Count Lymph % (Auto) [place] % (Auto) Lymph # [place] # Baso # Seg Neutrophils % Seg Neuts % (Manual) Lymphocytes % (Manual) Monocytes % (Manual) Eosinophils % (Manual) Basophils % (Manual) Nucleated RBC % Seg Neutrophils # Seg Neutrophils # Man Lymphocytes # (Manual) Monocytes # (Manual) Eosinophils # (Manual) Basophils # (Manual) PT INR Fibrinogen dRVVT Confirm Interp Factor V Activity POC ABG pH 7.478 H POC ABG pCO2 34.0 L POC ABG pO2 50 L ABG pO2 ABG HCO3 ABG Base Excess ABG Hemoglobin Oxyhemoglobin Sodium Potassium Chloride Carbon Dioxide BUN Creatinine Glucose POC Glucose 113 H Lactic Acid Calcium Phosphorus Magnesium Direct Bilirubin AST ALT Alkaline Phosphatase Lactate Dehydrogenase Troponin T C-Reactive Protein Total Protein Albumin Prealbumin Triglycerides Cholesterol LDL Cholesterol Direct HDL Cholesterol Urine pH Urine WBC (Auto) Urine Creatinine Urine Total Protein Fluid Total Protein Vancomycin Trough Rheumatoid Factor Complement C4 Miscellaneous Test Crossmatch 11/09/16 11/09/16 11/09/16 04:35 10:15 18:21 WBC RBC 2.68 L Hgb 7.8 L Hct 23.3 L MCV MCH MCHC RDW 17.0 H Plt Count Lymph % (Auto) [place] % (Auto) 12.1 H Lymph # [place] # 1.1 H Baso # Seg Neutrophils % Seg Neuts % (Manual) Lymphocytes % (Manual) Monocytes % (Manual) Eosinophils % (Manual) Basophils % (Manual) Nucleated RBC % Seg Neutrophils # Seg Neutrophils # Man Lymphocytes # (Manual) Monocytes # (Manual) Eosinophils # (Manual) Basophils # (Manual) PT INR Fibrinogen dRVVT Confirm Interp Factor V Activity POC ABG pH POC ABG pCO2 POC ABG pO2 ABG pO2 ABG HCO3 ABG Base Excess ABG Hemoglobin Oxyhemoglobin Sodium Potassium Chloride Carbon Dioxide BUN 51 H Creatinine 1.8 H Glucose POC Glucose 60 L Lactic Acid Calcium 8.3 L Phosphorus Magnesium Direct Bilirubin AST ALT Alkaline Phosphatase Lactate Dehydrogenase Troponin T C-Reactive Protein Total Protein Albumin Prealbumin Triglycerides Cholesterol LDL Cholesterol Direct HDL Cholesterol Urine pH Urine WBC (Auto) Urine Creatinine Urine Total Protein Fluid Total Protein Vancomycin Trough Rheumatoid Factor Complement C4 Miscellaneous Test Crossmatch 11/09/16 11/10/16 11/10/16 18:55 07:00 11:51 WBC RBC Hgb Hct MCV MCH MCHC RDW Plt Count Lymph % (Auto) [place] % (Auto) Lymph # [place] # Baso # Seg Neutrophils % Seg Neuts % (Manual) Lymphocytes % (Manual) Monocytes % (Manual) Eosinophils % (Manual) Basophils % (Manual) Nucleated RBC % Seg Neutrophils # Seg Neutrophils # Man Lymphocytes # (Manual) Monocytes # (Manual) Eosinophils # (Manual) Basophils # (Manual) PT INR Fibrinogen dRVVT Confirm Interp Factor V Activity POC ABG pH POC ABG pCO2 POC ABG pO2 ABG pO2 ABG HCO3 ABG Base Excess ABG Hemoglobin Oxyhemoglobin Sodium Potassium 3.0 L D Chloride 97.4 L Carbon Dioxide BUN 28 H Creatinine 1.3 H Glucose POC Glucose 68 L 120 H Lactic Acid Calcium 7.8 L Phosphorus Magnesium Direct Bilirubin AST ALT Alkaline Phosphatase Lactate Dehydrogenase Troponin T C-Reactive Protein Total Protein Albumin Prealbumin Triglycerides Cholesterol LDL Cholesterol Direct HDL Cholesterol Urine pH Urine WBC (Auto) Urine Creatinine Urine Total Protein Fluid Total Protein Vancomycin Trough Rheumatoid Factor Complement C4 Miscellaneous Test Crossmatch 11/10/16 11/11/16 11/11/16 14:20 06:59 06:59 WBC RBC 2.81 L Hgb 8.1 L Hct 24.4 L MCV MCH MCHC RDW 16.4 H Plt Count Lymph % (Auto) [place] % (Auto) 10.8 H Lymph # [place] # 1.0 H Baso # Seg Neutrophils % Seg Neuts % (Manual) Lymphocytes % (Manual) Monocytes % (Manual) Eosinophils % (Manual) Basophils % (Manual) Nucleated RBC % Seg Neutrophils # Seg Neutrophils # Man Lymphocytes # (Manual) Monocytes # (Manual) Eosinophils # (Manual) Basophils # (Manual) PT INR Fibrinogen dRVVT Confirm Interp Factor V Activity POC ABG pH POC ABG pCO2 POC ABG pO2 ABG pO2 ABG HCO3 ABG Base Excess ABG Hemoglobin Oxyhemoglobin Sodium Potassium Chloride Carbon Dioxide BUN Creatinine Glucose POC Glucose Lactic Acid Calcium Phosphorus Magnesium Direct Bilirubin AST ALT Alkaline Phosphatase Lactate Dehydrogenase 196 H Troponin T C-Reactive Protein Total Protein 6.1 L Albumin Prealbumin Triglycerides Cholesterol LDL Cholesterol Direct HDL Cholesterol Urine pH Urine WBC (Auto) Urine Creatinine Urine Total Protein Fluid Total Protein < 3.0 L Vancomycin Trough Rheumatoid Factor Complement C4 Miscellaneous Test Crossmatch 11/11/16 11/11/16 11/12/16 06:59 09:50 04:00 WBC RBC Hgb Hct MCV MCH MCHC RDW Plt Count Lymph % (Auto) [place] % (Auto) Lymph # [place] # Baso # Seg Neutrophils % Seg Neuts % (Manual) Lymphocytes % (Manual) Monocytes % (Manual) Eosinophils % (Manual) Basophils % (Manual) Nucleated RBC % Seg Neutrophils # Seg Neutrophils # Man Lymphocytes # (Manual) Monocytes # (Manual) Eosinophils # (Manual) Basophils # (Manual) PT INR 1.18 H Fibrinogen dRVVT Confirm Interp Factor V Activity POC ABG pH POC ABG pCO2 POC ABG pO2 ABG pO2 ABG HCO3 ABG Base Excess ABG Hemoglobin Oxyhemoglobin Sodium 136 L 133 L Potassium Chloride 96.1 L 94.8 L Carbon Dioxide 21 L BUN 37 H 42 H Creatinine 1.8 H 2.0 H Glucose POC Glucose Lactic Acid Calcium Phosphorus Magnesium Direct Bilirubin AST ALT Alkaline Phosphatase Lactate Dehydrogenase Troponin T C-Reactive Protein Total Protein Albumin Prealbumin Triglycerides Cholesterol LDL Cholesterol Direct HDL Cholesterol Urine pH Urine WBC (Auto) Urine Creatinine Urine Total Protein Fluid Total Protein Vancomycin Trough Rheumatoid Factor Complement C4 Miscellaneous Test Crossmatch 11/12/16 11/12/16 11/13/16 04:00 23:55 05:53 WBC RBC Hgb 8.9 L Hct 27.2 L MCV MCH MCHC RDW Plt Count Lymph % (Auto) [place] % (Auto) Lymph # [place] # Baso # Seg Neutrophils % Seg Neuts % (Manual) Lymphocytes % (Manual) Monocytes % (Manual) Eosinophils % (Manual) Basophils % (Manual) Nucleated RBC % Seg Neutrophils # Seg Neutrophils # Man Lymphocytes # (Manual) Monocytes # (Manual) Eosinophils # (Manual) Basophils # (Manual) PT INR Fibrinogen dRVVT Confirm Interp Factor V Activity POC ABG pH POC ABG pCO2 POC ABG pO2 ABG pO2 ABG HCO3 ABG Base Excess ABG Hemoglobin Oxyhemoglobin Sodium Potassium Chloride Carbon Dioxide BUN Creatinine Glucose POC Glucose 132 H 120 H Lactic Acid Calcium Phosphorus Magnesium Direct Bilirubin AST ALT Alkaline Phosphatase Lactate Dehydrogenase Troponin T C-Reactive Protein Total Protein Albumin Prealbumin Triglycerides Cholesterol LDL Cholesterol Direct HDL Cholesterol Urine pH Urine WBC (Auto) Urine Creatinine Urine Total Protein Fluid Total Protein Vancomycin Trough Rheumatoid Factor Complement C4 Miscellaneous Test Crossmatch 11/13/16 11/13/16 11/13/16 11:43 17:09 23:41 WBC RBC Hgb Hct MCV MCH MCHC RDW Plt Count Lymph % (Auto) [place] % (Auto) Lymph # [place] # Baso # Seg Neutrophils % Seg Neuts % (Manual) Lymphocytes % (Manual) Monocytes % (Manual) Eosinophils % (Manual) Basophils % (Manual) Nucleated RBC % Seg Neutrophils # Seg Neutrophils # Man Lymphocytes # (Manual) Monocytes # (Manual) Eosinophils # (Manual) Basophils # (Manual) PT INR Fibrinogen dRVVT Confirm Interp Factor V Activity POC ABG pH POC ABG pCO2 POC ABG pO2 ABG pO2 ABG HCO3 ABG Base Excess ABG Hemoglobin Oxyhemoglobin Sodium Potassium Chloride Carbon Dioxide BUN Creatinine Glucose POC Glucose 114 H 113 H 108 H Lactic Acid Calcium Phosphorus Magnesium Direct Bilirubin AST ALT Alkaline Phosphatase Lactate Dehydrogenase Troponin T C-Reactive Protein Total Protein Albumin Prealbumin Triglycerides Cholesterol LDL Cholesterol Direct HDL Cholesterol Urine pH Urine WBC (Auto) Urine Creatinine Urine Total Protein Fluid Total Protein Vancomycin Trough Rheumatoid Factor Complement C4 Miscellaneous Test Crossmatch 11/13/16 11/15/16 11/15/16 Unknown 00:37 03:30 WBC 11.2 H RBC 2.72 L Hgb 7.6 L Hct 23.4 L MCV MCH MCHC RDW 16.5 H Plt Count Lymph % (Auto) [place] % (Auto) Lymph # [place] # Baso # Seg Neutrophils % Seg Neuts % (Manual) Lymphocytes % (Manual) Monocytes % (Manual) Eosinophils % (Manual) Basophils % (Manual) Nucleated RBC % Seg Neutrophils # Seg Neutrophils # Man Lymphocytes # (Manual) Monocytes # (Manual) Eosinophils # (Manual) Basophils # (Manual) PT INR Fibrinogen dRVVT Confirm Interp Factor V Activity POC ABG pH POC ABG pCO2 POC ABG pO2 ABG pO2 ABG HCO3 ABG Base Excess ABG Hemoglobin Oxyhemoglobin Sodium 135 L Potassium Chloride 95.2 L Carbon Dioxide BUN 52 H Creatinine 2.2 H Glucose POC Glucose 108 H Lactic Acid Calcium Phosphorus Magnesium Direct Bilirubin AST ALT Alkaline Phosphatase Lactate Dehydrogenase Troponin T C-Reactive Protein Total Protein Albumin Prealbumin Triglycerides Cholesterol LDL Cholesterol Direct HDL Cholesterol Urine pH Urine WBC (Auto) Urine Creatinine Urine Total Protein Fluid Total Protein Vancomycin Trough Rheumatoid Factor Complement C4 Miscellaneous Test Crossmatch 11/15/16 11/15/16 11/15/16 03:30 05:04 11:50 WBC RBC Hgb Hct MCV MCH MCHC RDW Plt Count Lymph % (Auto) [place] % (Auto) Lymph # [place] # Baso # Seg Neutrophils % Seg Neuts % (Manual) Lymphocytes % (Manual) Monocytes % (Manual) Eosinophils % (Manual) Basophils % (Manual) Nucleated RBC % Seg Neutrophils # Seg Neutrophils # Man Lymphocytes # (Manual) Monocytes # (Manual) Eosinophils # (Manual) Basophils # (Manual) PT INR Fibrinogen dRVVT Confirm Interp Factor V Activity POC ABG pH POC ABG pCO2 POC ABG pO2 ABG pO2 ABG HCO3 ABG Base Excess ABG Hemoglobin Oxyhemoglobin Sodium Potassium 3.4 L Chloride Carbon Dioxide BUN 25 H Creatinine 1.5 H Glucose 103 H POC Glucose 121 H 144 H Lactic Acid Calcium Phosphorus Magnesium Direct Bilirubin AST ALT Alkaline Phosphatase Lactate Dehydrogenase Troponin T C-Reactive Protein Total Protein Albumin Prealbumin Triglycerides Cholesterol LDL Cholesterol Direct HDL Cholesterol Urine pH Urine WBC (Auto) Urine Creatinine Urine Total Protein Fluid Total Protein Vancomycin Trough Rheumatoid Factor Complement C4 Miscellaneous Test Crossmatch 11/15/16 11/15/16 11/16/16 21:28 23:20 11:44 WBC RBC Hgb Hct MCV MCH MCHC RDW Plt Count Lymph % (Auto) [place] % (Auto) Lymph # [place] # Baso # Seg Neutrophils % Seg Neuts % (Manual) Lymphocytes % (Manual) Monocytes % (Manual) Eosinophils % (Manual) Basophils % (Manual) Nucleated RBC % Seg Neutrophils # Seg Neutrophils # Man Lymphocytes # (Manual) Monocytes # (Manual) Eosinophils # (Manual) Basophils # (Manual) PT INR Fibrinogen dRVVT Confirm Interp Factor V Activity POC ABG pH 7.462 H POC ABG pCO2 POC ABG pO2 71 L ABG pO2 ABG HCO3 ABG Base Excess ABG Hemoglobin Oxyhemoglobin Sodium Potassium Chloride Carbon Dioxide BUN Creatinine Glucose POC Glucose 116 H 133 H Lactic Acid Calcium Phosphorus Magnesium Direct Bilirubin AST ALT Alkaline Phosphatase Lactate Dehydrogenase Troponin T C-Reactive Protein Total Protein Albumin Prealbumin Triglycerides Cholesterol LDL Cholesterol Direct HDL Cholesterol Urine pH Urine WBC (Auto) Urine Creatinine Urine Total Protein Fluid Total Protein Vancomycin Trough Rheumatoid Factor Complement C4 Miscellaneous Test Crossmatch 11/16/16 11/16/16 11/16/16 12:20 17:05 23:35 WBC 11.7 H RBC 2.73 L Hgb 7.6 L Hct 23.7 L MCV MCH MCHC RDW 16.6 H Plt Count Lymph % (Auto) [place] % (Auto) Lymph # [place] # Baso # Seg Neutrophils % Seg Neuts % (Manual) Lymphocytes % (Manual) Monocytes % (Manual) Eosinophils % (Manual) Basophils % (Manual) Nucleated RBC % Seg Neutrophils # Seg Neutrophils # Man Lymphocytes # (Manual) Monocytes # (Manual) Eosinophils # (Manual) Basophils # (Manual) PT INR Fibrinogen dRVVT Confirm Interp Factor V Activity POC ABG pH POC ABG pCO2 POC ABG pO2 ABG pO2 ABG HCO3 ABG Base Excess ABG Hemoglobin Oxyhemoglobin Sodium Potassium Chloride Carbon Dioxide BUN Creatinine Glucose POC Glucose 154 H 125 H Lactic Acid Calcium Phosphorus Magnesium Direct Bilirubin AST ALT Alkaline Phosphatase Lactate Dehydrogenase Troponin T C-Reactive Protein Total Protein Albumin Prealbumin Triglycerides Cholesterol LDL Cholesterol Direct HDL Cholesterol Urine pH Urine WBC (Auto) Urine Creatinine Urine Total Protein Fluid Total Protein Vancomycin Trough Rheumatoid Factor Complement C4 Miscellaneous Test Crossmatch 11/17/16 11/17/16 11/17/16 03:20 03:20 03:20 WBC RBC 2.55 L Hgb 7.3 L Hct 21.9 L MCV MCH MCHC RDW 16.6 H Plt Count Lymph % (Auto) [place] % (Auto) 11.5 H Lymph # [place] # 1.1 H Baso # Seg Neutrophils % Seg Neuts % (Manual) Lymphocytes % (Manual) Monocytes % (Manual) Eosinophils % (Manual) Basophils % (Manual) Nucleated RBC % Seg Neutrophils # Seg Neutrophils # Man Lymphocytes # (Manual) Monocytes # (Manual) Eosinophils # (Manual) Basophils # (Manual) PT 16.8 H INR 1.37 H Fibrinogen dRVVT Confirm Interp Factor V Activity POC ABG pH POC ABG pCO2 POC ABG pO2 ABG pO2 ABG HCO3 ABG Base Excess ABG Hemoglobin Oxyhemoglobin Sodium Potassium 3.5 L Chloride Carbon Dioxide BUN 21 H Creatinine Glucose POC Glucose Lactic Acid Calcium 7.9 L Phosphorus Magnesium Direct Bilirubin AST ALT Alkaline Phosphatase Lactate Dehydrogenase Troponin T C-Reactive Protein Total Protein Albumin Prealbumin Triglycerides Cholesterol LDL Cholesterol Direct HDL Cholesterol Urine pH Urine WBC (Auto) Urine Creatinine Urine Total Protein Fluid Total Protein Vancomycin Trough Rheumatoid Factor Complement C4 Miscellaneous Test Crossmatch 11/17/16 11/17/16 11/17/16 06:34 11:21 21:22 WBC RBC Hgb Hct MCV MCH MCHC RDW Plt Count Lymph % (Auto) [place] % (Auto) Lymph # [place] # Baso # Seg Neutrophils % Seg Neuts % (Manual) Lymphocytes % (Manual) Monocytes % (Manual) Eosinophils % (Manual) Basophils % (Manual) Nucleated RBC % Seg Neutrophils # Seg Neutrophils # Man Lymphocytes # (Manual) Monocytes # (Manual) Eosinophils # (Manual) Basophils # (Manual) PT INR Fibrinogen dRVVT Confirm Interp Factor V Activity POC ABG pH 7.467 H POC ABG pCO2 POC ABG pO2 73 L ABG pO2 ABG HCO3 ABG Base Excess ABG Hemoglobin Oxyhemoglobin Sodium Potassium Chloride Carbon Dioxide BUN Creatinine Glucose POC Glucose 121 H 119 H Lactic Acid Calcium Phosphorus Magnesium Direct Bilirubin AST ALT Alkaline Phosphatase Lactate Dehydrogenase Troponin T C-Reactive Protein Total Protein Albumin Prealbumin Triglycerides Cholesterol LDL Cholesterol Direct HDL Cholesterol Urine pH Urine WBC (Auto) Urine Creatinine Urine Total Protein Fluid Total Protein Vancomycin Trough Rheumatoid Factor Complement C4 Miscellaneous Test Crossmatch 11/18/16 11/18/16 11/19/16 12:16 17:19 00:00 WBC RBC Hgb Hct MCV MCH MCHC RDW Plt Count Lymph % (Auto) [place] % (Auto) Lymph # [place] # Baso # Seg Neutrophils % Seg Neuts % (Manual) Lymphocytes % (Manual) Monocytes % (Manual) Eosinophils % (Manual) Basophils % (Manual) Nucleated RBC % Seg Neutrophils # Seg Neutrophils # Man Lymphocytes # (Manual) Monocytes # (Manual) Eosinophils # (Manual) Basophils # (Manual) PT INR Fibrinogen dRVVT Confirm Interp Factor V Activity POC ABG pH POC ABG pCO2 POC ABG pO2 ABG pO2 ABG HCO3 ABG Base Excess ABG Hemoglobin Oxyhemoglobin Sodium Potassium Chloride Carbon Dioxide BUN Creatinine Glucose POC Glucose 124 H 162 H 139 H Lactic Acid Calcium Phosphorus Magnesium Direct Bilirubin AST ALT Alkaline Phosphatase Lactate Dehydrogenase Troponin T C-Reactive Protein Total Protein Albumin Prealbumin Triglycerides Cholesterol LDL Cholesterol Direct HDL Cholesterol Urine pH Urine WBC (Auto) Urine Creatinine Urine Total Protein Fluid Total Protein Vancomycin Trough Rheumatoid Factor Complement C4 Miscellaneous Test Crossmatch 11/19/16 11/19/16 11/20/16 05:00 12:43 00:40 WBC RBC Hgb Hct MCV MCH MCHC RDW Plt Count Lymph % (Auto) [place] % (Auto) Lymph # [place] # Baso # Seg Neutrophils % Seg Neuts % (Manual) Lymphocytes % (Manual) Monocytes % (Manual) Eosinophils % (Manual) Basophils % (Manual) Nucleated RBC % Seg Neutrophils # Seg Neutrophils # Man Lymphocytes # (Manual) Monocytes # (Manual) Eosinophils # (Manual) Basophils # (Manual) PT INR Fibrinogen dRVVT Confirm Interp Factor V Activity POC ABG pH POC ABG pCO2 POC ABG pO2 ABG pO2 ABG HCO3 ABG Base Excess ABG Hemoglobin Oxyhemoglobin Sodium Potassium Chloride Carbon Dioxide BUN Creatinine Glucose POC Glucose 110 H 125 H 136 H Lactic Acid Calcium Phosphorus Magnesium Direct Bilirubin AST ALT Alkaline Phosphatase Lactate Dehydrogenase Troponin T C-Reactive Protein Total Protein Albumin Prealbumin Triglycerides Cholesterol LDL Cholesterol Direct HDL Cholesterol Urine pH Urine WBC (Auto) Urine Creatinine Urine Total Protein Fluid Total Protein Vancomycin Trough Rheumatoid Factor Complement C4 Miscellaneous Test Crossmatch 11/20/16 11/20/16 11/20/16 05:00 05:00 05:51 WBC 13.1 H RBC 2.74 L Hgb 7.7 L Hct 23.6 L MCV MCH MCHC RDW 16.9 H Plt Count Lymph % (Auto) [place] % (Auto) 10.8 H Lymph # [place] # 1.4 H Baso # Seg Neutrophils % Seg Neuts % (Manual) Lymphocytes % (Manual) Monocytes % (Manual) Eosinophils % (Manual) Basophils % (Manual) Nucleated RBC % Seg Neutrophils # 7.9 H Seg Neutrophils # Man Lymphocytes # (Manual) Monocytes # (Manual) Eosinophils # (Manual) Basophils # (Manual) PT INR Fibrinogen dRVVT Confirm Interp Factor V Activity POC ABG pH POC ABG pCO2 POC ABG pO2 ABG pO2 ABG HCO3 ABG Base Excess ABG Hemoglobin Oxyhemoglobin Sodium Potassium Chloride Carbon Dioxide BUN 31 H Creatinine 1.8 H Glucose 129 H POC Glucose 133 H Lactic Acid Calcium Phosphorus Magnesium Direct Bilirubin AST ALT Alkaline Phosphatase Lactate Dehydrogenase Troponin T C-Reactive Protein Total Protein Albumin Prealbumin Triglycerides Cholesterol LDL Cholesterol Direct HDL Cholesterol Urine pH Urine WBC (Auto) Urine Creatinine Urine Total Protein Fluid Total Protein Vancomycin Trough Rheumatoid Factor Complement C4 Miscellaneous Test Crossmatch 11/20/16 11/20/16 11/21/16 12:40 18:10 01:20 WBC RBC Hgb Hct MCV MCH MCHC RDW Plt Count Lymph % (Auto) [place] % (Auto) Lymph # [place] # Baso # Seg Neutrophils % Seg Neuts % (Manual) Lymphocytes % (Manual) Monocytes % (Manual) Eosinophils % (Manual) Basophils % (Manual) Nucleated RBC % Seg Neutrophils # Seg Neutrophils # Man Lymphocytes # (Manual) Monocytes # (Manual) Eosinophils # (Manual) Basophils # (Manual) PT INR Fibrinogen dRVVT Confirm Interp Factor V Activity POC ABG pH POC ABG pCO2 POC ABG pO2 ABG pO2 ABG HCO3 ABG Base Excess ABG Hemoglobin Oxyhemoglobin Sodium Potassium Chloride Carbon Dioxide BUN Creatinine Glucose POC Glucose 134 H 138 H 136 H Lactic Acid Calcium Phosphorus Magnesium Direct Bilirubin AST ALT Alkaline Phosphatase Lactate Dehydrogenase Troponin T C-Reactive Protein Total Protein Albumin Prealbumin Triglycerides Cholesterol LDL Cholesterol Direct HDL Cholesterol Urine pH Urine WBC (Auto) Urine Creatinine Urine Total Protein Fluid Total Protein Vancomycin Trough Rheumatoid Factor Complement C4 Miscellaneous Test Crossmatch 11/21/16 11/21/16 11/21/16 07:04 07:45 07:45 WBC 22.0 H RBC 2.91 L Hgb 8.2 L Hct 25.4 L MCV MCH MCHC RDW 17.1 H Plt Count Lymph % (Auto) [place] % (Auto) Lymph # [place] # Baso # Seg Neutrophils % Seg Neuts % (Manual) Lymphocytes % (Manual) 8.0 L Monocytes % (Manual) Eosinophils % (Manual) Basophils % (Manual) Nucleated RBC % Seg Neutrophils # Seg Neutrophils # Man 14.7 H Lymphocytes # (Manual) Monocytes # (Manual) 1.1 H Eosinophils # (Manual) Basophils # (Manual) PT INR Fibrinogen dRVVT Confirm Interp Factor V Activity POC ABG pH POC ABG pCO2 POC ABG pO2 ABG pO2 ABG HCO3 ABG Base Excess ABG Hemoglobin Oxyhemoglobin Sodium Potassium Chloride Carbon Dioxide BUN 42 H Creatinine 2.0 H Glucose POC Glucose 108 H Lactic Acid Calcium Phosphorus Magnesium Direct Bilirubin AST ALT Alkaline Phosphatase Lactate Dehydrogenase Troponin T C-Reactive Protein Total Protein Albumin Prealbumin Triglycerides Cholesterol LDL Cholesterol Direct HDL Cholesterol Urine pH Urine WBC (Auto) Urine Creatinine Urine Total Protein Fluid Total Protein Vancomycin Trough Rheumatoid Factor Complement C4 Miscellaneous Test Crossmatch 11/21/16 11/21/16 11/21/16 08:38 10:09 11:20 WBC RBC Hgb Hct MCV MCH MCHC RDW Plt Count Lymph % (Auto) [place] % (Auto) Lymph # [place] # Baso # Seg Neutrophils % Seg Neuts % (Manual) Lymphocytes % (Manual) Monocytes % (Manual) Eosinophils % (Manual) Basophils % (Manual) Nucleated RBC % Seg Neutrophils # Seg Neutrophils # Man Lymphocytes # (Manual) Monocytes # (Manual) Eosinophils # (Manual) Basophils # (Manual) PT INR Fibrinogen dRVVT Confirm Interp Factor V Activity POC ABG pH 7.346 L POC ABG pCO2 34.4 L POC ABG pO2 314 H ABG pO2 ABG HCO3 ABG Base Excess ABG Hemoglobin Oxyhemoglobin Sodium Potassium Chloride Carbon Dioxide BUN Creatinine Glucose POC Glucose 195 H 153 H Lactic Acid Calcium Phosphorus Magnesium Direct Bilirubin AST ALT Alkaline Phosphatase Lactate Dehydrogenase Troponin T C-Reactive Protein Total Protein Albumin Prealbumin Triglycerides Cholesterol LDL Cholesterol Direct HDL Cholesterol Urine pH Urine WBC (Auto) Urine Creatinine Urine Total Protein Fluid Total Protein Vancomycin Trough Rheumatoid Factor Complement C4 Miscellaneous Test Crossmatch 11/21/16 11/22/16 11/22/16 23:37 04:48 05:00 WBC 29.7 H RBC 2.73 L Hgb 7.5 L Hct 24.2 L MCV MCH 27 L MCHC RDW 17.4 H Plt Count Lymph % (Auto) [place] % (Auto) Lymph # [place] # Baso # Seg Neutrophils % Seg Neuts % (Manual) Lymphocytes % (Manual) 7.0 L Monocytes % (Manual) Eosinophils % (Manual) Basophils % (Manual) Nucleated RBC % Seg Neutrophils # Seg Neutrophils # Man 15.4 H Lymphocytes # (Manual) Monocytes # (Manual) Eosinophils # (Manual) Basophils # (Manual) PT INR Fibrinogen dRVVT Confirm Interp Factor V Activity POC ABG pH POC ABG pCO2 24.6 L POC ABG pO2 189 H ABG pO2 ABG HCO3 ABG Base Excess ABG Hemoglobin Oxyhemoglobin Sodium Potassium Chloride Carbon Dioxide BUN Creatinine Glucose POC Glucose 65 L Lactic Acid Calcium Phosphorus Magnesium Direct Bilirubin AST ALT Alkaline Phosphatase Lactate Dehydrogenase Troponin T C-Reactive Protein Total Protein Albumin Prealbumin Triglycerides Cholesterol LDL Cholesterol Direct HDL Cholesterol Urine pH Urine WBC (Auto) Urine Creatinine Urine Total Protein Fluid Total Protein Vancomycin Trough Rheumatoid Factor Complement C4 Miscellaneous Test Crossmatch 11/22/16 11/23/16 11/23/16 05:00 03:44 04:06 WBC RBC 2.52 L Hgb 7.2 L Hct 21.5 L MCV MCH MCHC RDW 17.1 H Plt Count Lymph % (Auto) [place] % (Auto) 12.4 H Lymph # [place] # 1.4 H Baso # Seg Neutrophils % Seg Neuts % (Manual) Lymphocytes % (Manual) Monocytes % (Manual) Eosinophils % (Manual) Basophils % (Manual) Nucleated RBC % Seg Neutrophils # Seg Neutrophils # Man Lymphocytes # (Manual) Monocytes # (Manual) Eosinophils # (Manual) Basophils # (Manual) PT INR Fibrinogen dRVVT Confirm Interp Factor V Activity POC ABG pH 7.493 H POC ABG pCO2 29.5 L POC ABG pO2 49 L ABG pO2 ABG HCO3 ABG Base Excess ABG Hemoglobin Oxyhemoglobin Sodium 134 L Potassium Chloride 95.9 L Carbon Dioxide 14 L D BUN 51 H Creatinine 2.6 H Glucose POC Glucose Lactic Acid Calcium Phosphorus Magnesium Direct Bilirubin AST ALT Alkaline Phosphatase Lactate Dehydrogenase Troponin T C-Reactive Protein Total Protein Albumin Prealbumin Triglycerides Cholesterol LDL Cholesterol Direct HDL Cholesterol Urine pH Urine WBC (Auto) Urine Creatinine Urine Total Protein Fluid Total Protein Vancomycin Trough Rheumatoid Factor Complement C4 Miscellaneous Test Crossmatch 11/23/16 11/23/16 11/24/16 04:06 11:29 06:39 WBC RBC Hgb Hct MCV MCH MCHC RDW Plt Count Lymph % (Auto) [place] % (Auto) Lymph # [place] # Baso # Seg Neutrophils % Seg Neuts % (Manual) Lymphocytes % (Manual) Monocytes % (Manual) Eosinophils % (Manual) Basophils % (Manual) Nucleated RBC % Seg Neutrophils # Seg Neutrophils # Man Lymphocytes # (Manual) Monocytes # (Manual) Eosinophils # (Manual) Basophils # (Manual) PT INR Fibrinogen dRVVT Confirm Interp Factor V Activity POC ABG pH POC ABG pCO2 POC ABG pO2 ABG pO2 ABG HCO3 ABG Base Excess ABG Hemoglobin Oxyhemoglobin Sodium 136 L Potassium Chloride 95.2 L Carbon Dioxide BUN 60 H Creatinine 2.9 H Glucose POC Glucose 69 L 305 H Lactic Acid Calcium Phosphorus Magnesium 1.60 L Direct Bilirubin AST ALT Alkaline Phosphatase Lactate Dehydrogenase Troponin T C-Reactive Protein Total Protein Albumin Prealbumin Triglycerides Cholesterol LDL Cholesterol Direct HDL Cholesterol Urine pH Urine WBC (Auto) Urine Creatinine Urine Total Protein Fluid Total Protein Vancomycin Trough Rheumatoid Factor Complement C4 Miscellaneous Test Crossmatch 11/24/16 11/24/16 11/24/16 06:43 08:08 08:08 WBC 11.2 H RBC 2.47 L Hgb 6.8 L Hct 20.6 L MCV MCH MCHC RDW 17.0 H Plt Count Lymph % (Auto) [place] % (Auto) 10.3 H Lymph # [place] # 1.2 H Baso # Seg Neutrophils % Seg Neuts % (Manual) Lymphocytes % (Manual) Monocytes % (Manual) Eosinophils % (Manual) Basophils % (Manual) Nucleated RBC % Seg Neutrophils # Seg Neutrophils # Man Lymphocytes # (Manual) Monocytes # (Manual) Eosinophils # (Manual) Basophils # (Manual) PT INR Fibrinogen dRVVT Confirm Interp Factor V Activity POC ABG pH POC ABG pCO2 POC ABG pO2 ABG pO2 ABG HCO3 ABG Base Excess ABG Hemoglobin Oxyhemoglobin Sodium 135 L Potassium Chloride 96.3 L Carbon Dioxide BUN 61 H Creatinine 3.1 H Glucose POC Glucose 62 L Lactic Acid Calcium 8.2 L Phosphorus Magnesium Direct Bilirubin AST ALT Alkaline Phosphatase Lactate Dehydrogenase Troponin T C-Reactive Protein Total Protein Albumin Prealbumin Triglycerides Cholesterol LDL Cholesterol Direct HDL Cholesterol Urine pH Urine WBC (Auto) Urine Creatinine Urine Total Protein Fluid Total Protein Vancomycin Trough Rheumatoid Factor Complement C4 Miscellaneous Test Crossmatch 11/24/16 11/24/16 11/24/16 08:34 11:20 12:41 WBC RBC Hgb Hct MCV MCH MCHC RDW Plt Count Lymph % (Auto) [place] % (Auto) Lymph # [place] # Baso # Seg Neutrophils % Seg Neuts % (Manual) Lymphocytes % (Manual) Monocytes % (Manual) Eosinophils % (Manual) Basophils % (Manual) Nucleated RBC % Seg Neutrophils # Seg Neutrophils # Man Lymphocytes # (Manual) Monocytes # (Manual) Eosinophils # (Manual) Basophils # (Manual) PT INR Fibrinogen dRVVT Confirm Interp Factor V Activity POC ABG pH POC ABG pCO2 POC ABG pO2 ABG pO2 ABG HCO3 ABG Base Excess ABG Hemoglobin Oxyhemoglobin Sodium Potassium Chloride Carbon Dioxide BUN Creatinine Glucose POC Glucose 108 H Lactic Acid Calcium Phosphorus Magnesium 1.60 L Direct Bilirubin AST ALT Alkaline Phosphatase Lactate Dehydrogenase Troponin T C-Reactive Protein Total Protein Albumin Prealbumin Triglycerides Cholesterol LDL Cholesterol Direct HDL Cholesterol Urine pH Urine WBC (Auto) Urine Creatinine Urine Total Protein Fluid Total Protein Vancomycin Trough Rheumatoid Factor Complement C4 Miscellaneous Test Crossmatch See Detail 11/25/16 11/25/16 11/25/16 00:03 04:42 04:42 WBC RBC 3.03 L Hgb 8.6 L Hct 25.3 L MCV MCH MCHC RDW 16.2 H Plt Count Lymph % (Auto) [place] % (Auto) 8.1 H Lymph # [place] # Baso # Seg Neutrophils % 71.3 H Seg Neuts % (Manual) Lymphocytes % (Manual) Monocytes % (Manual) Eosinophils % (Manual) Basophils % (Manual) Nucleated RBC % Seg Neutrophils # Seg Neutrophils # Man Lymphocytes # (Manual) Monocytes # (Manual) Eosinophils # (Manual) Basophils # (Manual) PT INR Fibrinogen dRVVT Confirm Interp Factor V Activity POC ABG pH POC ABG pCO2 POC ABG pO2 ABG pO2 ABG HCO3 ABG Base Excess ABG Hemoglobin Oxyhemoglobin Sodium Potassium Chloride Carbon Dioxide BUN 61 H Creatinine 3.0 H Glucose 102 H POC Glucose 113 H Lactic Acid Calcium 8.2 L Phosphorus Magnesium Direct Bilirubin AST ALT Alkaline Phosphatase 142 H Lactate Dehydrogenase Troponin T C-Reactive Protein Total Protein 5.7 L Albumin 1.5 L Prealbumin Triglycerides Cholesterol LDL Cholesterol Direct HDL Cholesterol Urine pH Urine WBC (Auto) Urine Creatinine Urine Total Protein Fluid Total Protein Vancomycin Trough Rheumatoid Factor Complement C4 Miscellaneous Test Crossmatch 11/25/16 11/25/16 11/25/16 05:12 11:31 14:12 WBC RBC Hgb Hct MCV MCH MCHC RDW Plt Count Lymph % (Auto) [place] % (Auto) Lymph # [place] # Baso # Seg Neutrophils % Seg Neuts % (Manual) Lymphocytes % (Manual) Monocytes % (Manual) Eosinophils % (Manual) Basophils % (Manual) Nucleated RBC % Seg Neutrophils # Seg Neutrophils # Man Lymphocytes # (Manual) Monocytes # (Manual) Eosinophils # (Manual) Basophils # (Manual) PT INR Fibrinogen dRVVT Confirm Interp Factor V Activity POC ABG pH 7.487 H POC ABG pCO2 POC ABG pO2 153 H ABG pO2 ABG HCO3 ABG Base Excess ABG Hemoglobin Oxyhemoglobin Sodium Potassium Chloride Carbon Dioxide BUN Creatinine Glucose POC Glucose 131 H 140 H Lactic Acid Calcium Phosphorus Magnesium Direct Bilirubin AST ALT Alkaline Phosphatase Lactate Dehydrogenase Troponin T C-Reactive Protein Total Protein Albumin Prealbumin Triglycerides Cholesterol LDL Cholesterol Direct HDL Cholesterol Urine pH Urine WBC (Auto) Urine Creatinine Urine Total Protein Fluid Total Protein Vancomycin Trough Rheumatoid Factor Complement C4 Miscellaneous Test Crossmatch 11/25/16 11/26/16 11/26/16 17:23 00:09 05:13 WBC RBC 2.94 L Hgb 8.4 L Hct 24.6 L MCV MCH MCHC RDW 16.4 H Plt Count Lymph % (Auto) [place] % (Auto) 12.3 H Lymph # [place] # 1.1 H Baso # Seg Neutrophils % Seg Neuts % (Manual) Lymphocytes % (Manual) Monocytes % (Manual) Eosinophils % (Manual) Basophils % (Manual) Nucleated RBC % Seg Neutrophils # Seg Neutrophils # Man Lymphocytes # (Manual) Monocytes # (Manual) Eosinophils # (Manual) Basophils # (Manual) PT INR Fibrinogen dRVVT Confirm Interp Factor V Activity POC ABG pH POC ABG pCO2 POC ABG pO2 ABG pO2 ABG HCO3 ABG Base Excess ABG Hemoglobin Oxyhemoglobin Sodium Potassium Chloride Carbon Dioxide BUN Creatinine Glucose POC Glucose 146 H 112 H Lactic Acid Calcium Phosphorus Magnesium Direct Bilirubin AST ALT Alkaline Phosphatase Lactate Dehydrogenase Troponin T C-Reactive Protein Total Protein Albumin Prealbumin Triglycerides Cholesterol LDL Cholesterol Direct HDL Cholesterol Urine pH Urine WBC (Auto) Urine Creatinine Urine Total Protein Fluid Total Protein Vancomycin Trough Rheumatoid Factor Complement C4 Miscellaneous Test Crossmatch 11/26/16 11/26/16 11/26/16 05:13 05:28 11:53 WBC RBC Hgb Hct MCV MCH MCHC RDW Plt Count Lymph % (Auto) [place] % (Auto) Lymph # [place] # Baso # Seg Neutrophils % Seg Neuts % (Manual) Lymphocytes % (Manual) Monocytes % (Manual) Eosinophils % (Manual) Basophils % (Manual) Nucleated RBC % Seg Neutrophils # Seg Neutrophils # Man Lymphocytes # (Manual) Monocytes # (Manual) Eosinophils # (Manual) Basophils # (Manual) PT INR Fibrinogen dRVVT Confirm Interp Factor V Activity POC ABG pH POC ABG pCO2 POC ABG pO2 ABG pO2 ABG HCO3 ABG Base Excess ABG Hemoglobin Oxyhemoglobin Sodium Potassium Chloride 97.8 L Carbon Dioxide BUN 37 H Creatinine 2.0 H Glucose 109 H POC Glucose 117 H 111 H Lactic Acid Calcium 7.9 L Phosphorus 1.80 L D Magnesium Direct Bilirubin AST ALT Alkaline Phosphatase Lactate Dehydrogenase Troponin T C-Reactive Protein Total Protein Albumin Prealbumin Triglycerides Cholesterol LDL Cholesterol Direct HDL Cholesterol Urine pH Urine WBC (Auto) Urine Creatinine Urine Total Protein Fluid Total Protein Vancomycin Trough Rheumatoid Factor Complement C4 Miscellaneous Test Crossmatch 11/26/16 11/27/16 11/27/16 17:14 04:50 06:02 WBC RBC Hgb Hct MCV MCH MCHC RDW Plt Count Lymph % (Auto) [place] % (Auto) Lymph # [place] # Baso # Seg Neutrophils % Seg Neuts % (Manual) Lymphocytes % (Manual) Monocytes % (Manual) Eosinophils % (Manual) Basophils % (Manual) Nucleated RBC % Seg Neutrophils # Seg Neutrophils # Man Lymphocytes # (Manual) Monocytes # (Manual) Eosinophils # (Manual) Basophils # (Manual) PT INR Fibrinogen dRVVT Confirm Interp Factor V Activity POC ABG pH POC ABG pCO2 POC ABG pO2 ABG pO2 75.2 L ABG HCO3 26.4 H ABG Base Excess ABG Hemoglobin 7.6 L Oxyhemoglobin 94.8 L Sodium Potassium Chloride Carbon Dioxide BUN 49 H Creatinine 2.3 H Glucose POC Glucose 115 H Lactic Acid Calcium Phosphorus 1.50 L Magnesium Direct Bilirubin AST ALT Alkaline Phosphatase Lactate Dehydrogenase Troponin T C-Reactive Protein Total Protein Albumin Prealbumin Triglycerides Cholesterol LDL Cholesterol Direct HDL Cholesterol Urine pH Urine WBC (Auto) Urine Creatinine Urine Total Protein Fluid Total Protein Vancomycin Trough Rheumatoid Factor Complement C4 Miscellaneous Test Crossmatch 11/27/16 11/27/16 11/27/16 06:02 11:25 17:25 WBC 11.6 H RBC 2.75 L Hgb 7.6 L Hct 23.4 L MCV MCH MCHC RDW 16.5 H Plt Count Lymph % (Auto) [place] % (Auto) Lymph # [place] # Baso # Seg Neutrophils % Seg Neuts % (Manual) Lymphocytes % (Manual) Monocytes % (Manual) Eosinophils % (Manual) Basophils % (Manual) Nucleated RBC % Seg Neutrophils # Seg Neutrophils # Man Lymphocytes # (Manual) Monocytes # (Manual) Eosinophils # (Manual) Basophils # (Manual) PT INR Fibrinogen dRVVT Confirm Interp Factor V Activity POC ABG pH POC ABG pCO2 POC ABG pO2 ABG pO2 ABG HCO3 ABG Base Excess ABG Hemoglobin Oxyhemoglobin Sodium Potassium Chloride Carbon Dioxide BUN Creatinine Glucose POC Glucose 114 H 126 H Lactic Acid Calcium Phosphorus Magnesium Direct Bilirubin AST ALT Alkaline Phosphatase Lactate Dehydrogenase Troponin T C-Reactive Protein Total Protein Albumin Prealbumin Triglycerides Cholesterol LDL Cholesterol Direct HDL Cholesterol Urine pH Urine WBC (Auto) Urine Creatinine Urine Total Protein Fluid Total Protein Vancomycin Trough Rheumatoid Factor Complement C4 Miscellaneous Test Crossmatch 11/28/16 11/28/16 11/28/16 04:45 05:33 05:44 WBC RBC Hgb Hct MCV MCH MCHC RDW Plt Count Lymph % (Auto) [place] % (Auto) Lymph # [place] # Baso # Seg Neutrophils % Seg Neuts % (Manual) Lymphocytes % (Manual) Monocytes % (Manual) Eosinophils % (Manual) Basophils % (Manual) Nucleated RBC % Seg Neutrophils # Seg Neutrophils # Man Lymphocytes # (Manual) Monocytes # (Manual) Eosinophils # (Manual) Basophils # (Manual) PT INR Fibrinogen dRVVT Confirm Interp Factor V Activity POC ABG pH POC ABG pCO2 POC ABG pO2 ABG pO2 99.3 H ABG HCO3 ABG Base Excess ABG Hemoglobin 8.3 L Oxyhemoglobin Sodium Potassium Chloride Carbon Dioxide BUN 63 H Creatinine 2.4 H Glucose 102 H POC Glucose 108 H Lactic Acid Calcium Phosphorus 1.80 L Magnesium Direct Bilirubin AST ALT Alkaline Phosphatase Lactate Dehydrogenase Troponin T C-Reactive Protein Total Protein Albumin Prealbumin Triglycerides Cholesterol LDL Cholesterol Direct HDL Cholesterol Urine pH Urine WBC (Auto) Urine Creatinine Urine Total Protein Fluid Total Protein Vancomycin Trough Rheumatoid Factor Complement C4 Miscellaneous Test Crossmatch 11/28/16 11/28/16 11/28/16 12:31 16:09 23:46 WBC RBC Hgb Hct MCV MCH MCHC RDW Plt Count Lymph % (Auto) [place] % (Auto) Lymph # [place] # Baso # Seg Neutrophils % Seg Neuts % (Manual) Lymphocytes % (Manual) Monocytes % (Manual) Eosinophils % (Manual) Basophils % (Manual) Nucleated RBC % Seg Neutrophils # Seg Neutrophils # Man Lymphocytes # (Manual) Monocytes # (Manual) Eosinophils # (Manual) Basophils # (Manual) PT INR Fibrinogen dRVVT Confirm Interp Factor V Activity POC ABG pH POC ABG pCO2 POC ABG pO2 ABG pO2 ABG HCO3 ABG Base Excess ABG Hemoglobin Oxyhemoglobin Sodium Potassium Chloride Carbon Dioxide BUN Creatinine Glucose POC Glucose 126 H 111 H 119 H Lactic Acid Calcium Phosphorus Magnesium Direct Bilirubin AST ALT Alkaline Phosphatase Lactate Dehydrogenase Troponin T C-Reactive Protein Total Protein Albumin Prealbumin Triglycerides Cholesterol LDL Cholesterol Direct HDL Cholesterol Urine pH Urine WBC (Auto) Urine Creatinine Urine Total Protein Fluid Total Protein Vancomycin Trough Rheumatoid Factor Complement C4 Miscellaneous Test Crossmatch 11/29/16 11/29/16 11/29/16 03:33 04:52 05:10 WBC RBC Hgb Hct MCV MCH MCHC RDW Plt Count Lymph % (Auto) [place] % (Auto) Lymph # [place] # Baso # Seg Neutrophils % Seg Neuts % (Manual) Lymphocytes % (Manual) Monocytes % (Manual) Eosinophils % (Manual) Basophils % (Manual) Nucleated RBC % Seg Neutrophils # Seg Neutrophils # Man Lymphocytes # (Manual) Monocytes # (Manual) Eosinophils # (Manual) Basophils # (Manual) PT INR Fibrinogen dRVVT Confirm Interp Factor V Activity POC ABG pH POC ABG pCO2 POC ABG pO2 ABG pO2 ABG HCO3 ABG Base Excess ABG Hemoglobin 7.0 L Oxyhemoglobin 94.9 L Sodium Potassium Chloride Carbon Dioxide BUN 73 H Creatinine 2.7 H Glucose POC Glucose 108 H Lactic Acid Calcium Phosphorus Magnesium Direct Bilirubin AST ALT Alkaline Phosphatase Lactate Dehydrogenase Troponin T C-Reactive Protein Total Protein Albumin Prealbumin Triglycerides Cholesterol LDL Cholesterol Direct HDL Cholesterol Urine pH Urine WBC (Auto) Urine Creatinine Urine Total Protein Fluid Total Protein Vancomycin Trough Rheumatoid Factor Complement C4 Miscellaneous Test Crossmatch 11/29/16 11/29/16 11/29/16 12:16 18:05 23:46 WBC RBC Hgb Hct MCV MCH MCHC RDW Plt Count Lymph % (Auto) [place] % (Auto) Lymph # [place] # Baso # Seg Neutrophils % Seg Neuts % (Manual) Lymphocytes % (Manual) Monocytes % (Manual) Eosinophils % (Manual) Basophils % (Manual) Nucleated RBC % Seg Neutrophils # Seg Neutrophils # Man Lymphocytes # (Manual) Monocytes # (Manual) Eosinophils # (Manual) Basophils # (Manual) PT INR Fibrinogen dRVVT Confirm Interp Factor V Activity POC ABG pH POC ABG pCO2 POC ABG pO2 ABG pO2 ABG HCO3 ABG Base Excess ABG Hemoglobin Oxyhemoglobin Sodium Potassium Chloride Carbon Dioxide BUN Creatinine Glucose POC Glucose 133 H 146 H 141 H Lactic Acid Calcium Phosphorus Magnesium Direct Bilirubin AST ALT Alkaline Phosphatase Lactate Dehydrogenase Troponin T C-Reactive Protein Total Protein Albumin Prealbumin Triglycerides Cholesterol LDL Cholesterol Direct HDL Cholesterol Urine pH Urine WBC (Auto) Urine Creatinine Urine Total Protein Fluid Total Protein Vancomycin Trough Rheumatoid Factor Complement C4 Miscellaneous Test Crossmatch 11/30/16 11/30/16 11/30/16 04:17 04:17 04:32 WBC 12.0 H RBC 2.80 L Hgb 7.8 L Hct 23.6 L MCV MCH MCHC RDW 16.6 H Plt Count Lymph % (Auto) [place] % (Auto) 11.3 H Lymph # [place] # 1.4 H Baso # Seg Neutrophils % Seg Neuts % (Manual) Lymphocytes % (Manual) Monocytes % (Manual) Eosinophils % (Manual) Basophils % (Manual) Nucleated RBC % Seg Neutrophils # 8.2 H Seg Neutrophils # Man Lymphocytes # (Manual) Monocytes # (Manual) Eosinophils # (Manual) Basophils # (Manual) PT INR Fibrinogen dRVVT Confirm Interp Factor V Activity POC ABG pH POC ABG pCO2 POC ABG pO2 ABG pO2 ABG HCO3 ABG Base Excess ABG Hemoglobin Oxyhemoglobin Sodium 169 H* D Potassium 5.1 H Chloride 121.5 H Carbon Dioxide BUN 34 H Creatinine 1.3 H D Glucose 133 H POC Glucose 131 H Lactic Acid Calcium 10.3 H Phosphorus Magnesium Direct Bilirubin AST ALT Alkaline Phosphatase Lactate Dehydrogenase Troponin T C-Reactive Protein Total Protein Albumin Prealbumin Triglycerides Cholesterol LDL Cholesterol Direct HDL Cholesterol Urine pH Urine WBC (Auto) Urine Creatinine Urine Total Protein Fluid Total Protein Vancomycin Trough Rheumatoid Factor Complement C4 Miscellaneous Test Crossmatch 11/30/16 11/30/16 11/30/16 05:45 11:10 17:26 WBC RBC Hgb Hct MCV MCH MCHC RDW Plt Count Lymph % (Auto) [place] % (Auto) Lymph # [place] # Baso # Seg Neutrophils % Seg Neuts % (Manual) Lymphocytes % (Manual) Monocytes % (Manual) Eosinophils % (Manual) Basophils % (Manual) Nucleated RBC % Seg Neutrophils # Seg Neutrophils # Man Lymphocytes # (Manual) Monocytes # (Manual) Eosinophils # (Manual) Basophils # (Manual) PT INR Fibrinogen dRVVT Confirm Interp Factor V Activity POC ABG pH POC ABG pCO2 POC ABG pO2 ABG pO2 ABG HCO3 ABG Base Excess ABG Hemoglobin Oxyhemoglobin Sodium Potassium Chloride Carbon Dioxide BUN 45 H Creatinine 1.6 H Glucose 131 H POC Glucose 146 H 134 H Lactic Acid Calcium Phosphorus Magnesium Direct Bilirubin AST ALT Alkaline Phosphatase Lactate Dehydrogenase Troponin T C-Reactive Protein Total Protein Albumin Prealbumin Triglycerides Cholesterol LDL Cholesterol Direct HDL Cholesterol Urine pH Urine WBC (Auto) Urine Creatinine Urine Total Protein Fluid Total Protein Vancomycin Trough Rheumatoid Factor Complement C4 Miscellaneous Test Crossmatch 11/30/16 12/01/16 12/01/16 23:35 00:06 03:35 WBC RBC Hgb Hct MCV MCH MCHC RDW Plt Count Lymph % (Auto) [place] % (Auto) Lymph # [place] # Baso # Seg Neutrophils % Seg Neuts % (Manual) Lymphocytes % (Manual) Monocytes % (Manual) Eosinophils % (Manual) Basophils % (Manual) Nucleated RBC % Seg Neutrophils # Seg Neutrophils # Man Lymphocytes # (Manual) Monocytes # (Manual) Eosinophils # (Manual) Basophils # (Manual) PT INR Fibrinogen dRVVT Confirm Interp Factor V Activity POC ABG pH POC ABG pCO2 POC ABG pO2 ABG pO2 ABG HCO3 ABG Base Excess ABG Hemoglobin 6.9 L Oxyhemoglobin Sodium Potassium Chloride Carbon Dioxide BUN 58 H Creatinine 1.8 H Glucose 146 H POC Glucose 151 H Lactic Acid Calcium Phosphorus Magnesium Direct Bilirubin AST ALT Alkaline Phosphatase Lactate Dehydrogenase Troponin T C-Reactive Protein Total Protein Albumin Prealbumin Triglycerides Cholesterol LDL Cholesterol Direct HDL Cholesterol Urine pH Urine WBC (Auto) Urine Creatinine Urine Total Protein Fluid Total Protein Vancomycin Trough Rheumatoid Factor Complement C4 Miscellaneous Test Crossmatch 12/01/16 12/01/16 12/01/16 03:35 05:47 11:52 WBC 12.3 H RBC 2.82 L Hgb 7.8 L Hct 23.7 L MCV MCH MCHC RDW 16.7 H Plt Count Lymph % (Auto) [place] % (Auto) 9.8 H Lymph # [place] # 1.2 H Baso # Seg Neutrophils % Seg Neuts % (Manual) Lymphocytes % (Manual) Monocytes % (Manual) Eosinophils % (Manual) Basophils % (Manual) Nucleated RBC % Seg Neutrophils # 8.4 H Seg Neutrophils # Man Lymphocytes # (Manual) Monocytes # (Manual) Eosinophils # (Manual) Basophils # (Manual) PT INR Fibrinogen dRVVT Confirm Interp Factor V Activity POC ABG pH POC ABG pCO2 POC ABG pO2 ABG pO2 ABG HCO3 ABG Base Excess ABG Hemoglobin Oxyhemoglobin Sodium Potassium Chloride Carbon Dioxide BUN Creatinine Glucose POC Glucose 152 H 152 H Lactic Acid Calcium Phosphorus Magnesium Direct Bilirubin AST ALT Alkaline Phosphatase Lactate Dehydrogenase Troponin T C-Reactive Protein Total Protein Albumin Prealbumin Triglycerides Cholesterol LDL Cholesterol Direct HDL Cholesterol Urine pH Urine WBC (Auto) Urine Creatinine Urine Total Protein Fluid Total Protein Vancomycin Trough Rheumatoid Factor Complement C4 Miscellaneous Test Crossmatch 12/01/16 12/01/16 12/02/16 17:40 23:41 05:00 WBC RBC Hgb Hct MCV MCH MCHC RDW Plt Count Lymph % (Auto) [place] % (Auto) Lymph # [place] # Baso # Seg Neutrophils % Seg Neuts % (Manual) Lymphocytes % (Manual) Monocytes % (Manual) Eosinophils % (Manual) Basophils % (Manual) Nucleated RBC % Seg Neutrophils # Seg Neutrophils # Man Lymphocytes # (Manual) Monocytes # (Manual) Eosinophils # (Manual) Basophils # (Manual) PT INR Fibrinogen dRVVT Confirm Interp Factor V Activity POC ABG pH POC ABG pCO2 POC ABG pO2 ABG pO2 ABG HCO3 ABG Base Excess ABG Hemoglobin Oxyhemoglobin Sodium Potassium Chloride Carbon Dioxide BUN 45 H Creatinine Glucose 115 H POC Glucose 140 H 144 H Lactic Acid Calcium Phosphorus Magnesium Direct Bilirubin AST ALT Alkaline Phosphatase Lactate Dehydrogenase Troponin T C-Reactive Protein Total Protein Albumin Prealbumin Triglycerides Cholesterol LDL Cholesterol Direct HDL Cholesterol Urine pH Urine WBC (Auto) Urine Creatinine Urine Total Protein Fluid Total Protein Vancomycin Trough Rheumatoid Factor Complement C4 Miscellaneous Test Crossmatch 12/02/16 12/02/16 12/02/16 05:31 11:20 17:38 WBC RBC Hgb Hct MCV MCH MCHC RDW Plt Count Lymph % (Auto) [place] % (Auto) Lymph # [place] # Baso # Seg Neutrophils % Seg Neuts % (Manual) Lymphocytes % (Manual) Monocytes % (Manual) Eosinophils % (Manual) Basophils % (Manual) Nucleated RBC % Seg Neutrophils # Seg Neutrophils # Man Lymphocytes # (Manual) Monocytes # (Manual) Eosinophils # (Manual) Basophils # (Manual) PT INR Fibrinogen dRVVT Confirm Interp Factor V Activity POC ABG pH POC ABG pCO2 POC ABG pO2 ABG pO2 ABG HCO3 ABG Base Excess ABG Hemoglobin Oxyhemoglobin Sodium Potassium Chloride Carbon Dioxide BUN Creatinine Glucose POC Glucose 136 H 177 H 139 H Lactic Acid Calcium Phosphorus Magnesium Direct Bilirubin AST ALT Alkaline Phosphatase Lactate Dehydrogenase Troponin T C-Reactive Protein Total Protein Albumin Prealbumin Triglycerides Cholesterol LDL Cholesterol Direct HDL Cholesterol Urine pH Urine WBC (Auto) Urine Creatinine Urine Total Protein Fluid Total Protein Vancomycin Trough Rheumatoid Factor Complement C4 Miscellaneous Test Crossmatch 12/02/16 12/03/16 12/03/16 23:43 04:00 04:00 WBC 20.4 H RBC 2.74 L Hgb 7.4 L Hct 23.6 L MCV MCH 27 L MCHC RDW 17.1 H Plt Count Lymph % (Auto) [place] % (Auto) Lymph # [place] # Baso # Seg Neutrophils % Seg Neuts % (Manual) 31.0 L Lymphocytes % (Manual) Monocytes % (Manual) Eosinophils % (Manual) Basophils % (Manual) Nucleated RBC % Seg Neutrophils # Seg Neutrophils # Man Lymphocytes # (Manual) Monocytes # (Manual) Eosinophils # (Manual) Basophils # (Manual) PT INR Fibrinogen dRVVT Confirm Interp Factor V Activity POC ABG pH POC ABG pCO2 POC ABG pO2 ABG pO2 ABG HCO3 ABG Base Excess ABG Hemoglobin Oxyhemoglobin Sodium Potassium Chloride Carbon Dioxide BUN 61 H Creatinine 1.6 H Glucose 119 H POC Glucose 158 H Lactic Acid Calcium Phosphorus Magnesium Direct Bilirubin AST ALT Alkaline Phosphatase Lactate Dehydrogenase Troponin T C-Reactive Protein Total Protein Albumin Prealbumin Triglycerides Cholesterol LDL Cholesterol Direct HDL Cholesterol Urine pH Urine WBC (Auto) Urine Creatinine Urine Total Protein Fluid Total Protein Vancomycin Trough Rheumatoid Factor Complement C4 Miscellaneous Test Crossmatch 12/03/16 12/03/16 12/03/16 05:02 12:11 18:16 WBC RBC Hgb Hct MCV MCH MCHC RDW Plt Count Lymph % (Auto) [place] % (Auto) Lymph # [place] # Baso # Seg Neutrophils % Seg Neuts % (Manual) Lymphocytes % (Manual) Monocytes % (Manual) Eosinophils % (Manual) Basophils % (Manual) Nucleated RBC % Seg Neutrophils # Seg Neutrophils # Man Lymphocytes # (Manual) Monocytes # (Manual) Eosinophils # (Manual) Basophils # (Manual) PT INR Fibrinogen dRVVT Confirm Interp Factor V Activity POC ABG pH POC ABG pCO2 POC ABG pO2 ABG pO2 ABG HCO3 ABG Base Excess ABG Hemoglobin Oxyhemoglobin Sodium Potassium Chloride Carbon Dioxide BUN Creatinine Glucose POC Glucose 146 H 157 H 124 H Lactic Acid Calcium Phosphorus Magnesium Direct Bilirubin AST ALT Alkaline Phosphatase Lactate Dehydrogenase Troponin T C-Reactive Protein Total Protein Albumin Prealbumin Triglycerides Cholesterol LDL Cholesterol Direct HDL Cholesterol Urine pH Urine WBC (Auto) Urine Creatinine Urine Total Protein Fluid Total Protein Vancomycin Trough Rheumatoid Factor Complement C4 Miscellaneous Test Crossmatch 12/03/16 12/04/16 12/04/16 23:41 04:00 04:45 WBC RBC Hgb Hct MCV MCH MCHC RDW Plt Count Lymph % (Auto) [place] % (Auto) Lymph # [place] # Baso # Seg Neutrophils % Seg Neuts % (Manual) Lymphocytes % (Manual) Monocytes % (Manual) Eosinophils % (Manual) Basophils % (Manual) Nucleated RBC % Seg Neutrophils # Seg Neutrophils # Man Lymphocytes # (Manual) Monocytes # (Manual) Eosinophils # (Manual) Basophils # (Manual) PT INR Fibrinogen dRVVT Confirm Interp Factor V Activity POC ABG pH POC ABG pCO2 POC ABG pO2 ABG pO2 ABG HCO3 ABG Base Excess ABG Hemoglobin Oxyhemoglobin Sodium Potassium Chloride Carbon Dioxide BUN 76 H Creatinine 1.6 H Glucose POC Glucose 130 H 136 H Lactic Acid Calcium Phosphorus Magnesium Direct Bilirubin AST ALT Alkaline Phosphatase 155 H Lactate Dehydrogenase Troponin T C-Reactive Protein Total Protein 5.5 L Albumin 1.5 L Prealbumin Triglycerides Cholesterol LDL Cholesterol Direct HDL Cholesterol Urine pH Urine WBC (Auto) Urine Creatinine Urine Total Protein Fluid Total Protein Vancomycin Trough Rheumatoid Factor Complement C4 Miscellaneous Test Crossmatch 12/04/16 12/04/16 12/05/16 12:08 17:23 00:10 WBC RBC Hgb Hct MCV MCH MCHC RDW Plt Count Lymph % (Auto) [place] % (Auto) Lymph # [place] # Baso # Seg Neutrophils % Seg Neuts % (Manual) Lymphocytes % (Manual) Monocytes % (Manual) Eosinophils % (Manual) Basophils % (Manual) Nucleated RBC % Seg Neutrophils # Seg Neutrophils # Man Lymphocytes # (Manual) Monocytes # (Manual) Eosinophils # (Manual) Basophils # (Manual) PT INR Fibrinogen dRVVT Confirm Interp Factor V Activity POC ABG pH POC ABG pCO2 POC ABG pO2 ABG pO2 ABG HCO3 ABG Base Excess ABG Hemoglobin Oxyhemoglobin Sodium Potassium Chloride Carbon Dioxide BUN Creatinine Glucose POC Glucose 114 H 129 H 124 H Lactic Acid Calcium Phosphorus Magnesium Direct Bilirubin AST ALT Alkaline Phosphatase Lactate Dehydrogenase Troponin T C-Reactive Protein Total Protein Albumin Prealbumin Triglycerides Cholesterol LDL Cholesterol Direct HDL Cholesterol Urine pH Urine WBC (Auto) Urine Creatinine Urine Total Protein Fluid Total Protein Vancomycin Trough Rheumatoid Factor Complement C4 Miscellaneous Test Crossmatch 12/05/16 12/05/16 12/05/16 05:00 05:00 05:18 WBC RBC Hgb Hct MCV MCH MCHC RDW Plt Count Lymph % (Auto) [place] % (Auto) Lymph # [place] # Baso # Seg Neutrophils % Seg Neuts % (Manual) Lymphocytes % (Manual) Monocytes % (Manual) Eosinophils % (Manual) Basophils % (Manual) Nucleated RBC % Seg Neutrophils # Seg Neutrophils # Man Lymphocytes # (Manual) Monocytes # (Manual) Eosinophils # (Manual) Basophils # (Manual) PT INR Fibrinogen dRVVT Confirm Interp Factor V Activity POC ABG pH POC ABG pCO2 POC ABG pO2 ABG pO2 ABG HCO3 ABG Base Excess ABG Hemoglobin Oxyhemoglobin Sodium Potassium Chloride Carbon Dioxide 21 L BUN 85 H Creatinine 1.9 H Glucose 131 H POC Glucose 154 H Lactic Acid Calcium Phosphorus Magnesium Direct Bilirubin AST ALT Alkaline Phosphatase Lactate Dehydrogenase Troponin T C-Reactive Protein 19.30 H Total Protein Albumin Prealbumin Triglycerides Cholesterol LDL Cholesterol Direct HDL Cholesterol Urine pH Urine WBC (Auto) Urine Creatinine Urine Total Protein Fluid Total Protein Vancomycin Trough Rheumatoid Factor Complement C4 Miscellaneous Test Crossmatch 12/05/16 12/05/16 12/05/16 11:43 17:46 23:25 WBC RBC Hgb Hct MCV MCH MCHC RDW Plt Count Lymph % (Auto) [place] % (Auto) Lymph # [place] # Baso # Seg Neutrophils % Seg Neuts % (Manual) Lymphocytes % (Manual) Monocytes % (Manual) Eosinophils % (Manual) Basophils % (Manual) Nucleated RBC % Seg Neutrophils # Seg Neutrophils # Man Lymphocytes # (Manual) Monocytes # (Manual) Eosinophils # (Manual) Basophils # (Manual) PT INR Fibrinogen dRVVT Confirm Interp Factor V Activity POC ABG pH POC ABG pCO2 POC ABG pO2 ABG pO2 ABG HCO3 ABG Base Excess ABG Hemoglobin Oxyhemoglobin Sodium Potassium Chloride Carbon Dioxide BUN Creatinine Glucose POC Glucose 117 H 113 H 111 H Lactic Acid Calcium Phosphorus Magnesium Direct Bilirubin AST ALT Alkaline Phosphatase Lactate Dehydrogenase Troponin T C-Reactive Protein Total Protein Albumin Prealbumin Triglycerides Cholesterol LDL Cholesterol Direct HDL Cholesterol Urine pH Urine WBC (Auto) Urine Creatinine Urine Total Protein Fluid Total Protein Vancomycin Trough Rheumatoid Factor Complement C4 Miscellaneous Test Crossmatch 12/05/16 12/06/16 12/06/16 Unknown 04:58 06:00 WBC RBC Hgb Hct MCV MCH MCHC RDW Plt Count Lymph % (Auto) [place] % (Auto) Lymph # [place] # Baso # Seg Neutrophils % Seg Neuts % (Manual) Lymphocytes % (Manual) Monocytes % (Manual) Eosinophils % (Manual) Basophils % (Manual) Nucleated RBC % Seg Neutrophils # Seg Neutrophils # Man Lymphocytes # (Manual) Monocytes # (Manual) Eosinophils # (Manual) Basophils # (Manual) PT INR Fibrinogen dRVVT Confirm Interp Factor V Activity POC ABG pH POC ABG pCO2 POC ABG pO2 ABG pO2 75.2 L ABG HCO3 ABG Base Excess -3.4 L ABG Hemoglobin 7.4 L Oxyhemoglobin 94.5 L Sodium Potassium Chloride Carbon Dioxide 20 L BUN 99 H Creatinine 2.1 H Glucose 126 H POC Glucose 145 H Lactic Acid Calcium Phosphorus 4.80 H Magnesium Direct Bilirubin AST ALT Alkaline Phosphatase Lactate Dehydrogenase Troponin T C-Reactive Protein Total Protein Albumin Prealbumin Triglycerides Cholesterol LDL Cholesterol Direct HDL Cholesterol Urine pH Urine WBC (Auto) Urine Creatinine Urine Total Protein Fluid Total Protein Vancomycin Trough Rheumatoid Factor Complement C4 Miscellaneous Test Crossmatch 12/06/16 12/06/16 12/06/16 06:46 11:54 17:55 WBC RBC Hgb 8.3 L Hct 26.4 L MCV MCH MCHC RDW Plt Count Lymph % (Auto) [place] % (Auto) Lymph # [place] # Baso # Seg Neutrophils % Seg Neuts % (Manual) Lymphocytes % (Manual) Monocytes % (Manual) Eosinophils % (Manual) Basophils % (Manual) Nucleated RBC % Seg Neutrophils # Seg Neutrophils # Man Lymphocytes # (Manual) Monocytes # (Manual) Eosinophils # (Manual) Basophils # (Manual) PT INR Fibrinogen dRVVT Confirm Interp Factor V Activity POC ABG pH POC ABG pCO2 POC ABG pO2 ABG pO2 ABG HCO3 ABG Base Excess ABG Hemoglobin Oxyhemoglobin Sodium Potassium Chloride Carbon Dioxide BUN Creatinine Glucose POC Glucose 126 H 157 H Lactic Acid Calcium Phosphorus Magnesium Direct Bilirubin AST ALT Alkaline Phosphatase Lactate Dehydrogenase Troponin T C-Reactive Protein Total Protein Albumin Prealbumin Triglycerides Cholesterol LDL Cholesterol Direct HDL Cholesterol Urine pH Urine WBC (Auto) Urine Creatinine Urine Total Protein Fluid Total Protein Vancomycin Trough Rheumatoid Factor Complement C4 Miscellaneous Test Crossmatch 12/06/16 12/07/16 12/07/16 23:59 05:34 06:30 WBC RBC Hgb Hct MCV MCH MCHC RDW Plt Count Lymph % (Auto) [place] % (Auto) Lymph # [place] # Baso # Seg Neutrophils % Seg Neuts % (Manual) Lymphocytes % (Manual) Monocytes % (Manual) Eosinophils % (Manual) Basophils % (Manual) Nucleated RBC % Seg Neutrophils # Seg Neutrophils # Man Lymphocytes # (Manual) Monocytes # (Manual) Eosinophils # (Manual) Basophils # (Manual) PT INR Fibrinogen dRVVT Confirm Interp Factor V Activity POC ABG pH POC ABG pCO2 POC ABG pO2 ABG pO2 ABG HCO3 ABG Base Excess ABG Hemoglobin Oxyhemoglobin Sodium Potassium Chloride Carbon Dioxide BUN 67 H Creatinine 1.4 H Glucose 126 H POC Glucose 129 H 129 H Lactic Acid Calcium Phosphorus Magnesium Direct Bilirubin AST ALT Alkaline Phosphatase Lactate Dehydrogenase Troponin T C-Reactive Protein Total Protein Albumin Prealbumin Triglycerides Cholesterol LDL Cholesterol Direct HDL Cholesterol Urine pH Urine WBC (Auto) Urine Creatinine Urine Total Protein Fluid Total Protein Vancomycin Trough Rheumatoid Factor Complement C4 Miscellaneous Test Crossmatch 12/07/16 12/07/16 12/07/16 06:30 08:00 09:45 WBC 18.8 H RBC 2.52 L Hgb 6.9 L 6.8 L Hct 21.2 L 21.1 L MCV MCH 27 L MCHC RDW 18.0 H Plt Count Lymph % (Auto) [place] % (Auto) 9.9 H Lymph # [place] # 1.9 H Baso # Seg Neutrophils % 71.8 H Seg Neuts % (Manual) Lymphocytes % (Manual) Monocytes % (Manual) Eosinophils % (Manual) Basophils % (Manual) Nucleated RBC % Seg Neutrophils # 13.5 H Seg Neutrophils # Man Lymphocytes # (Manual) Monocytes # (Manual) Eosinophils # (Manual) Basophils # (Manual) PT INR Fibrinogen dRVVT Confirm Interp Factor V Activity POC ABG pH POC ABG pCO2 POC ABG pO2 ABG pO2 ABG HCO3 ABG Base Excess ABG Hemoglobin Oxyhemoglobin Sodium Potassium Chloride Carbon Dioxide BUN Creatinine Glucose POC Glucose Lactic Acid Calcium Phosphorus Magnesium Direct Bilirubin AST ALT Alkaline Phosphatase Lactate Dehydrogenase Troponin T C-Reactive Protein Total Protein Albumin Prealbumin Triglycerides Cholesterol LDL Cholesterol Direct HDL Cholesterol Urine pH Urine WBC (Auto) Urine Creatinine Urine Total Protein Fluid Total Protein Vancomycin Trough Rheumatoid Factor Complement C4 Miscellaneous Test Crossmatch See Detail 12/07/16 12/07/16 12/07/16 11:44 18:19 23:59 WBC RBC Hgb Hct MCV MCH MCHC RDW Plt Count Lymph % (Auto) [place] % (Auto) Lymph # [place] # Baso # Seg Neutrophils % Seg Neuts % (Manual) Lymphocytes % (Manual) Monocytes % (Manual) Eosinophils % (Manual) Basophils % (Manual) Nucleated RBC % Seg Neutrophils # Seg Neutrophils # Man Lymphocytes # (Manual) Monocytes # (Manual) Eosinophils # (Manual) Basophils # (Manual) PT INR Fibrinogen dRVVT Confirm Interp Factor V Activity POC ABG pH POC ABG pCO2 POC ABG pO2 ABG pO2 ABG HCO3 ABG Base Excess ABG Hemoglobin Oxyhemoglobin Sodium Potassium Chloride Carbon Dioxide BUN Creatinine Glucose POC Glucose 137 H 138 H 133 H Lactic Acid Calcium Phosphorus Magnesium Direct Bilirubin AST ALT Alkaline Phosphatase Lactate Dehydrogenase Troponin T C-Reactive Protein Total Protein Albumin Prealbumin Triglycerides Cholesterol LDL Cholesterol Direct HDL Cholesterol Urine pH Urine WBC (Auto) Urine Creatinine Urine Total Protein Fluid Total Protein Vancomycin Trough Rheumatoid Factor Complement C4 Miscellaneous Test Crossmatch 12/08/16 12/08/16 12/08/16 05:25 05:30 05:30 WBC 23.8 H RBC 2.88 L Hgb 8.1 L Hct 24.3 L MCV MCH MCHC RDW 16.7 H Plt Count Lymph % (Auto) [place] % (Auto) Lymph # [place] # Baso # Seg Neutrophils % Seg Neuts % (Manual) 76.0 H Lymphocytes % (Manual) 9.0 L Monocytes % (Manual) 9.0 H Eosinophils % (Manual) Basophils % (Manual) Nucleated RBC % Seg Neutrophils # Seg Neutrophils # Man 18.1 H Lymphocytes # (Manual) Monocytes # (Manual) 2.1 H Eosinophils # (Manual) Basophils # (Manual) PT INR Fibrinogen dRVVT Confirm Interp Factor V Activity POC ABG pH POC ABG pCO2 POC ABG pO2 ABG pO2 ABG HCO3 ABG Base Excess ABG Hemoglobin Oxyhemoglobin Sodium Potassium Chloride Carbon Dioxide 21 L BUN 76 H Creatinine 1.6 H Glucose 133 H POC Glucose 177 H Lactic Acid Calcium Phosphorus Magnesium Direct Bilirubin AST ALT Alkaline Phosphatase Lactate Dehydrogenase Troponin T C-Reactive Protein Total Protein Albumin Prealbumin Triglycerides Cholesterol LDL Cholesterol Direct HDL Cholesterol Urine pH Urine WBC (Auto) Urine Creatinine Urine Total Protein Fluid Total Protein Vancomycin Trough Rheumatoid Factor Complement C4 Miscellaneous Test Crossmatch 12/08/16 12/08/16 12/09/16 11:45 18:00 00:00 WBC RBC Hgb Hct MCV MCH MCHC RDW Plt Count Lymph % (Auto) [place] % (Auto) Lymph # [place] # Baso # Seg Neutrophils % Seg Neuts % (Manual) Lymphocytes % (Manual) Monocytes % (Manual) Eosinophils % (Manual) Basophils % (Manual) Nucleated RBC % Seg Neutrophils # Seg Neutrophils # Man Lymphocytes # (Manual) Monocytes # (Manual) Eosinophils # (Manual) Basophils # (Manual) PT INR Fibrinogen dRVVT Confirm Interp Factor V Activity POC ABG pH POC ABG pCO2 POC ABG pO2 ABG pO2 ABG HCO3 ABG Base Excess ABG Hemoglobin Oxyhemoglobin Sodium Potassium Chloride Carbon Dioxide BUN Creatinine Glucose POC Glucose 163 H 123 H 137 H Lactic Acid Calcium Phosphorus Magnesium Direct Bilirubin AST ALT Alkaline Phosphatase Lactate Dehydrogenase Troponin T C-Reactive Protein Total Protein Albumin Prealbumin Triglycerides Cholesterol LDL Cholesterol Direct HDL Cholesterol Urine pH Urine WBC (Auto) Urine Creatinine Urine Total Protein Fluid Total Protein Vancomycin Trough Rheumatoid Factor Complement C4 Miscellaneous Test Crossmatch 12/09/16 12/09/16 12/09/16 05:34 06:00 06:00 WBC 15.5 H RBC 2.87 L Hgb 8.0 L Hct 24.2 L MCV MCH MCHC RDW 17.2 H Plt Count Lymph % (Auto) [place] % (Auto) 11.6 H Lymph # [place] # 1.8 H Baso # Seg Neutrophils % 70.8 H Seg Neuts % (Manual) Lymphocytes % (Manual) Monocytes % (Manual) Eosinophils % (Manual) Basophils % (Manual) Nucleated RBC % Seg Neutrophils # 11.0 H Seg Neutrophils # Man Lymphocytes # (Manual) Monocytes # (Manual) Eosinophils # (Manual) Basophils # (Manual) PT INR Fibrinogen dRVVT Confirm Interp Factor V Activity POC ABG pH POC ABG pCO2 POC ABG pO2 ABG pO2 ABG HCO3 ABG Base Excess ABG Hemoglobin Oxyhemoglobin Sodium Potassium Chloride Carbon Dioxide BUN 51 H Creatinine Glucose 117 H POC Glucose 136 H Lactic Acid Calcium Phosphorus Magnesium Direct Bilirubin AST ALT Alkaline Phosphatase Lactate Dehydrogenase Troponin T C-Reactive Protein Total Protein Albumin Prealbumin Triglycerides Cholesterol LDL Cholesterol Direct HDL Cholesterol Urine pH Urine WBC (Auto) Urine Creatinine Urine Total Protein Fluid Total Protein Vancomycin Trough Rheumatoid Factor Complement C4 Miscellaneous Test Crossmatch 12/09/16 12/09/16 12/09/16 12:29 17:52 23:10 WBC RBC Hgb Hct MCV MCH MCHC RDW Plt Count Lymph % (Auto) [place] % (Auto) Lymph # [place] # Baso # Seg Neutrophils % Seg Neuts % (Manual) Lymphocytes % (Manual) Monocytes % (Manual) Eosinophils % (Manual) Basophils % (Manual) Nucleated RBC % Seg Neutrophils # Seg Neutrophils # Man Lymphocytes # (Manual) Monocytes # (Manual) Eosinophils # (Manual) Basophils # (Manual) PT INR Fibrinogen dRVVT Confirm Interp Factor V Activity POC ABG pH POC ABG pCO2 POC ABG pO2 ABG pO2 ABG HCO3 ABG Base Excess ABG Hemoglobin Oxyhemoglobin Sodium Potassium Chloride Carbon Dioxide BUN Creatinine Glucose POC Glucose 139 H 140 H 129 H Lactic Acid Calcium Phosphorus Magnesium Direct Bilirubin AST ALT Alkaline Phosphatase Lactate Dehydrogenase Troponin T C-Reactive Protein Total Protein Albumin Prealbumin Triglycerides Cholesterol LDL Cholesterol Direct HDL Cholesterol Urine pH Urine WBC (Auto) Urine Creatinine Urine Total Protein Fluid Total Protein Vancomycin Trough Rheumatoid Factor Complement C4 Miscellaneous Test Crossmatch 12/10/16 12/10/16 12/10/16 05:00 05:00 06:54 WBC 15.7 H RBC 2.87 L Hgb 8.2 L Hct 24.4 L MCV MCH MCHC RDW 17.2 H Plt Count Lymph % (Auto) [place] % (Auto) 8.3 H Lymph # [place] # 1.3 H Baso # Seg Neutrophils % 72.8 H Seg Neuts % (Manual) Lymphocytes % (Manual) Monocytes % (Manual) Eosinophils % (Manual) Basophils % (Manual) Nucleated RBC % Seg Neutrophils # 11.4 H Seg Neutrophils # Man Lymphocytes # (Manual) Monocytes # (Manual) Eosinophils # (Manual) Basophils # (Manual) PT INR Fibrinogen dRVVT Confirm Interp Factor V Activity POC ABG pH POC ABG pCO2 POC ABG pO2 ABG pO2 ABG HCO3 ABG Base Excess ABG Hemoglobin Oxyhemoglobin Sodium Potassium Chloride Carbon Dioxide BUN 64 H Creatinine 1.4 H Glucose 134 H POC Glucose 154 H Lactic Acid Calcium Phosphorus Magnesium Direct Bilirubin AST ALT Alkaline Phosphatase Lactate Dehydrogenase Troponin T C-Reactive Protein Total Protein Albumin Prealbumin Triglycerides Cholesterol LDL Cholesterol Direct HDL Cholesterol Urine pH Urine WBC (Auto) Urine Creatinine Urine Total Protein Fluid Total Protein Vancomycin Trough Rheumatoid Factor Complement C4 Miscellaneous Test Crossmatch 12/10/16 12/10/16 12/10/16 11:58 17:29 23:52 WBC RBC Hgb Hct MCV MCH MCHC RDW Plt Count Lymph % (Auto) [place] % (Auto) Lymph # [place] # Baso # Seg Neutrophils % Seg Neuts % (Manual) Lymphocytes % (Manual) Monocytes % (Manual) Eosinophils % (Manual) Basophils % (Manual) Nucleated RBC % Seg Neutrophils # Seg Neutrophils # Man Lymphocytes # (Manual) Monocytes # (Manual) Eosinophils # (Manual) Basophils # (Manual) PT INR Fibrinogen dRVVT Confirm Interp Factor V Activity POC ABG pH POC ABG pCO2 POC ABG pO2 ABG pO2 ABG HCO3 ABG Base Excess ABG Hemoglobin Oxyhemoglobin Sodium Potassium Chloride Carbon Dioxide BUN Creatinine Glucose POC Glucose 144 H 163 H 125 H Lactic Acid Calcium Phosphorus Magnesium Direct Bilirubin AST ALT Alkaline Phosphatase Lactate Dehydrogenase Troponin T C-Reactive Protein Total Protein Albumin Prealbumin Triglycerides Cholesterol LDL Cholesterol Direct HDL Cholesterol Urine pH Urine WBC (Auto) Urine Creatinine Urine Total Protein Fluid Total Protein Vancomycin Trough Rheumatoid Factor Complement C4 Miscellaneous Test Crossmatch 12/11/16 12/11/16 12/11/16 05:38 06:30 06:30 WBC 14.4 H RBC 2.76 L Hgb 7.7 L Hct 23.4 L MCV MCH MCHC RDW 17.2 H Plt Count Lymph % (Auto) [place] % (Auto) 8.8 H Lymph # [place] # 1.3 H Baso # Seg Neutrophils % 72.5 H Seg Neuts % (Manual) Lymphocytes % (Manual) Monocytes % (Manual) Eosinophils % (Manual) Basophils % (Manual) Nucleated RBC % Seg Neutrophils # 10.5 H Seg Neutrophils # Man Lymphocytes # (Manual) Monocytes # (Manual) Eosinophils # (Manual) Basophils # (Manual) PT INR Fibrinogen dRVVT Confirm Interp Factor V Activity POC ABG pH POC ABG pCO2 POC ABG pO2 ABG pO2 ABG HCO3 ABG Base Excess ABG Hemoglobin Oxyhemoglobin Sodium Potassium Chloride Carbon Dioxide BUN 43 H Creatinine Glucose 124 H POC Glucose 141 H Lactic Acid Calcium 8.3 L Phosphorus Magnesium 1.60 L Direct Bilirubin AST ALT Alkaline Phosphatase Lactate Dehydrogenase Troponin T C-Reactive Protein Total Protein Albumin Prealbumin Triglycerides Cholesterol LDL Cholesterol Direct HDL Cholesterol Urine pH Urine WBC (Auto) Urine Creatinine Urine Total Protein Fluid Total Protein Vancomycin Trough Rheumatoid Factor Complement C4 Miscellaneous Test Crossmatch 12/11/16 12/11/16 12/11/16 11:15 17:59 23:48 WBC RBC Hgb Hct MCV MCH MCHC RDW Plt Count Lymph % (Auto) [place] % (Auto) Lymph # [place] # Baso # Seg Neutrophils % Seg Neuts % (Manual) Lymphocytes % (Manual) Monocytes % (Manual) Eosinophils % (Manual) Basophils % (Manual) Nucleated RBC % Seg Neutrophils # Seg Neutrophils # Man Lymphocytes # (Manual) Monocytes # (Manual) Eosinophils # (Manual) Basophils # (Manual) PT INR Fibrinogen dRVVT Confirm Interp Factor V Activity POC ABG pH POC ABG pCO2 POC ABG pO2 ABG pO2 ABG HCO3 ABG Base Excess ABG Hemoglobin Oxyhemoglobin Sodium Potassium Chloride Carbon Dioxide BUN Creatinine Glucose POC Glucose 188 H 106 H 119 H Lactic Acid Calcium Phosphorus Magnesium Direct Bilirubin AST ALT Alkaline Phosphatase Lactate Dehydrogenase Troponin T C-Reactive Protein Total Protein Albumin Prealbumin Triglycerides Cholesterol LDL Cholesterol Direct HDL Cholesterol Urine pH Urine WBC (Auto) Urine Creatinine Urine Total Protein Fluid Total Protein Vancomycin Trough Rheumatoid Factor Complement C4 Miscellaneous Test Crossmatch 12/12/16 12/12/16 12/12/16 05:00 06:01 12:20 WBC 16.7 H RBC 2.87 L Hgb 8.0 L Hct 24.2 L MCV MCH MCHC RDW 17.6 H Plt Count Lymph % (Auto) [place] % (Auto) Lymph # [place] # 1.2 H Baso # Seg Neutrophils % 75.3 H Seg Neuts % (Manual) Lymphocytes % (Manual) Monocytes % (Manual) Eosinophils % (Manual) Basophils % (Manual) Nucleated RBC % Seg Neutrophils # 12.6 H Seg Neutrophils # Man Lymphocytes # (Manual) Monocytes # (Manual) Eosinophils # (Manual) Basophils # (Manual) PT INR Fibrinogen dRVVT Confirm Interp Factor V Activity POC ABG pH POC ABG pCO2 POC ABG pO2 ABG pO2 ABG HCO3 ABG Base Excess ABG Hemoglobin Oxyhemoglobin Sodium Potassium Chloride Carbon Dioxide BUN Creatinine Glucose POC Glucose 134 H 149 H Lactic Acid Calcium Phosphorus Magnesium Direct Bilirubin AST ALT Alkaline Phosphatase Lactate Dehydrogenase Troponin T C-Reactive Protein Total Protein Albumin Prealbumin Triglycerides Cholesterol LDL Cholesterol Direct HDL Cholesterol Urine pH Urine WBC (Auto) Urine Creatinine Urine Total Protein Fluid Total Protein Vancomycin Trough Rheumatoid Factor Complement C4 Miscellaneous Test Crossmatch 12/12/16 12/12/16 12/12/16 17:38 23:01 Unknown WBC RBC Hgb Hct MCV MCH MCHC RDW Plt Count Lymph % (Auto) [place] % (Auto) Lymph # [place] # Baso # Seg Neutrophils % Seg Neuts % (Manual) Lymphocytes % (Manual) Monocytes % (Manual) Eosinophils % (Manual) Basophils % (Manual) Nucleated RBC % Seg Neutrophils # Seg Neutrophils # Man Lymphocytes # (Manual) Monocytes # (Manual) Eosinophils # (Manual) Basophils # (Manual) PT INR Fibrinogen dRVVT Confirm Interp Factor V Activity POC ABG pH POC ABG pCO2 POC ABG pO2 ABG pO2 ABG HCO3 ABG Base Excess ABG Hemoglobin Oxyhemoglobin Sodium Potassium Chloride Carbon Dioxide BUN 60 H Creatinine 1.3 H Glucose 126 H POC Glucose 127 H 144 H Lactic Acid Calcium Phosphorus Magnesium Direct Bilirubin AST ALT Alkaline Phosphatase Lactate Dehydrogenase Troponin T C-Reactive Protein Total Protein Albumin Prealbumin Triglycerides Cholesterol LDL Cholesterol Direct HDL Cholesterol Urine pH Urine WBC (Auto) Urine Creatinine Urine Total Protein Fluid Total Protein Vancomycin Trough Rheumatoid Factor Complement C4 Miscellaneous Test Crossmatch 12/13/16 12/13/16 12/13/16 04:00 04:00 05:19 WBC 18.7 H RBC 2.89 L Hgb 8.3 L Hct 24.6 L MCV MCH MCHC RDW 17.5 H Plt Count Lymph % (Auto) [place] % (Auto) Lymph # [place] # 1.3 H Baso # Seg Neutrophils % 71.5 H Seg Neuts % (Manual) Lymphocytes % (Manual) Monocytes % (Manual) Eosinophils % (Manual) Basophils % (Manual) Nucleated RBC % Seg Neutrophils # 13.4 H Seg Neutrophils # Man Lymphocytes # (Manual) Monocytes # (Manual) Eosinophils # (Manual) Basophils # (Manual) PT INR Fibrinogen dRVVT Confirm Interp Factor V Activity POC ABG pH POC ABG pCO2 POC ABG pO2 ABG pO2 ABG HCO3 ABG Base Excess ABG Hemoglobin Oxyhemoglobin Sodium Potassium Chloride Carbon Dioxide BUN 73 H Creatinine 1.5 H Glucose 141 H POC Glucose 171 H Lactic Acid Calcium Phosphorus Magnesium Direct Bilirubin AST ALT Alkaline Phosphatase Lactate Dehydrogenase Troponin T C-Reactive Protein Total Protein Albumin Prealbumin Triglycerides Cholesterol LDL Cholesterol Direct HDL Cholesterol Urine pH Urine WBC (Auto) Urine Creatinine Urine Total Protein Fluid Total Protein Vancomycin Trough Rheumatoid Factor Complement C4 Miscellaneous Test Crossmatch 12/13/16 12/13/16 12/14/16 12:28 16:48 00:01 WBC RBC Hgb Hct MCV MCH MCHC RDW Plt Count Lymph % (Auto) [place] % (Auto) Lymph # [place] # Baso # Seg Neutrophils % Seg Neuts % (Manual) Lymphocytes % (Manual) Monocytes % (Manual) Eosinophils % (Manual) Basophils % (Manual) Nucleated RBC % Seg Neutrophils # Seg Neutrophils # Man Lymphocytes # (Manual) Monocytes # (Manual) Eosinophils # (Manual) Basophils # (Manual) PT INR Fibrinogen dRVVT Confirm Interp Factor V Activity POC ABG pH POC ABG pCO2 POC ABG pO2 ABG pO2 ABG HCO3 ABG Base Excess ABG Hemoglobin Oxyhemoglobin Sodium Potassium Chloride Carbon Dioxide BUN Creatinine Glucose POC Glucose 206 H 173 H 139 H Lactic Acid Calcium Phosphorus Magnesium Direct Bilirubin AST ALT Alkaline Phosphatase Lactate Dehydrogenase Troponin T C-Reactive Protein Total Protein Albumin Prealbumin Triglycerides Cholesterol LDL Cholesterol Direct HDL Cholesterol Urine pH Urine WBC (Auto) Urine Creatinine Urine Total Protein Fluid Total Protein Vancomycin Trough Rheumatoid Factor Complement C4 Miscellaneous Test Crossmatch 12/14/16 12/14/16 12/14/16 05:16 06:10 11:17 WBC RBC Hgb Hct MCV MCH MCHC RDW Plt Count Lymph % (Auto) [place] % (Auto) Lymph # [place] # Baso # Seg Neutrophils % Seg Neuts % (Manual) Lymphocytes % (Manual) Monocytes % (Manual) Eosinophils % (Manual) Basophils % (Manual) Nucleated RBC % Seg Neutrophils # Seg Neutrophils # Man Lymphocytes # (Manual) Monocytes # (Manual) Eosinophils # (Manual) Basophils # (Manual) PT INR Fibrinogen dRVVT Confirm Interp Factor V Activity POC ABG pH POC ABG pCO2 POC ABG pO2 ABG pO2 ABG HCO3 ABG Base Excess ABG Hemoglobin Oxyhemoglobin Sodium Potassium Chloride Carbon Dioxide BUN 57 H Creatinine 1.4 H Glucose 135 H POC Glucose 158 H 137 H Lactic Acid Calcium Phosphorus Magnesium Direct Bilirubin AST ALT Alkaline Phosphatase Lactate Dehydrogenase Troponin T C-Reactive Protein Total Protein Albumin Prealbumin Triglycerides Cholesterol LDL Cholesterol Direct HDL Cholesterol Urine pH Urine WBC (Auto) Urine Creatinine Urine Total Protein Fluid Total Protein Vancomycin Trough Rheumatoid Factor Complement C4 Miscellaneous Test Crossmatch 12/14/16 12/14/16 12/15/16 17:52 23:27 04:00 WBC RBC Hgb Hct MCV MCH MCHC RDW Plt Count Lymph % (Auto) [place] % (Auto) Lymph # [place] # Baso # Seg Neutrophils % Seg Neuts % (Manual) Lymphocytes % (Manual) Monocytes % (Manual) Eosinophils % (Manual) Basophils % (Manual) Nucleated RBC % Seg Neutrophils # Seg Neutrophils # Man Lymphocytes # (Manual) Monocytes # (Manual) Eosinophils # (Manual) Basophils # (Manual) PT INR Fibrinogen dRVVT Confirm Interp Factor V Activity POC ABG pH POC ABG pCO2 POC ABG pO2 ABG pO2 ABG HCO3 ABG Base Excess ABG Hemoglobin Oxyhemoglobin Sodium Potassium Chloride 97.9 L Carbon Dioxide BUN 75 H Creatinine 1.6 H Glucose 122 H POC Glucose 149 H 163 H Lactic Acid Calcium Phosphorus 5.20 H Magnesium Direct Bilirubin AST ALT Alkaline Phosphatase Lactate Dehydrogenase Troponin T C-Reactive Protein Total Protein Albumin Prealbumin Triglycerides Cholesterol LDL Cholesterol Direct HDL Cholesterol Urine pH Urine WBC (Auto) Urine Creatinine Urine Total Protein Fluid Total Protein Vancomycin Trough Rheumatoid Factor Complement C4 Miscellaneous Test Crossmatch 12/15/16 12/15/16 12/15/16 05:50 11:24 17:01 WBC RBC Hgb Hct MCV MCH MCHC RDW Plt Count Lymph % (Auto) [place] % (Auto) Lymph # [place] # Baso # Seg Neutrophils % Seg Neuts % (Manual) Lymphocytes % (Manual) Monocytes % (Manual) Eosinophils % (Manual) Basophils % (Manual) Nucleated RBC % Seg Neutrophils # Seg Neutrophils # Man Lymphocytes # (Manual) Monocytes # (Manual) Eosinophils # (Manual) Basophils # (Manual) PT INR Fibrinogen dRVVT Confirm Interp Factor V Activity POC ABG pH POC ABG pCO2 POC ABG pO2 ABG pO2 ABG HCO3 ABG Base Excess ABG Hemoglobin Oxyhemoglobin Sodium Potassium Chloride Carbon Dioxide BUN Creatinine Glucose POC Glucose 150 H 146 H 167 H Lactic Acid Calcium Phosphorus Magnesium Direct Bilirubin AST ALT Alkaline Phosphatase Lactate Dehydrogenase Troponin T C-Reactive Protein Total Protein Albumin Prealbumin Triglycerides Cholesterol LDL Cholesterol Direct HDL Cholesterol Urine pH Urine WBC (Auto) Urine Creatinine Urine Total Protein Fluid Total Protein Vancomycin Trough Rheumatoid Factor Complement C4 Miscellaneous Test Crossmatch 12/15/16 12/16/16 12/16/16 23:34 05:25 11:24 WBC RBC Hgb Hct MCV MCH MCHC RDW Plt Count Lymph % (Auto) [place] % (Auto) Lymph # [place] # Baso # Seg Neutrophils % Seg Neuts % (Manual) Lymphocytes % (Manual) Monocytes % (Manual) Eosinophils % (Manual) Basophils % (Manual) Nucleated RBC % Seg Neutrophils # Seg Neutrophils # Man Lymphocytes # (Manual) Monocytes # (Manual) Eosinophils # (Manual) Basophils # (Manual) PT INR Fibrinogen dRVVT Confirm Interp Factor V Activity POC ABG pH POC ABG pCO2 POC ABG pO2 ABG pO2 ABG HCO3 ABG Base Excess ABG Hemoglobin Oxyhemoglobin Sodium Potassium Chloride Carbon Dioxide BUN Creatinine Glucose POC Glucose 127 H 139 H 165 H Lactic Acid Calcium Phosphorus Magnesium Direct Bilirubin AST ALT Alkaline Phosphatase Lactate Dehydrogenase Troponin T C-Reactive Protein Total Protein Albumin Prealbumin Triglycerides Cholesterol LDL Cholesterol Direct HDL Cholesterol Urine pH Urine WBC (Auto) Urine Creatinine Urine Total Protein Fluid Total Protein Vancomycin Trough Rheumatoid Factor Complement C4 Miscellaneous Test Crossmatch 12/16/16 12/16/16 12/16/16 15:30 16:25 17:31 WBC 17.8 H RBC 2.38 L Hgb 6.4 L Hct 20.3 L MCV MCH 27 L MCHC RDW 17.4 H Plt Count Lymph % (Auto) [place] % (Auto) Lymph # [place] # Baso # Seg Neutrophils % Seg Neuts % (Manual) Lymphocytes % (Manual) Monocytes % (Manual) 10.0 H Eosinophils % (Manual) Basophils % (Manual) Nucleated RBC % Seg Neutrophils # Seg Neutrophils # Man 8.5 H Lymphocytes # (Manual) Monocytes # (Manual) 1.8 H Eosinophils # (Manual) Basophils # (Manual) PT INR Fibrinogen dRVVT Confirm Interp Factor V Activity POC ABG pH POC ABG pCO2 POC ABG pO2 ABG pO2 ABG HCO3 ABG Base Excess ABG Hemoglobin Oxyhemoglobin Sodium Potassium Chloride Carbon Dioxide BUN Creatinine Glucose POC Glucose 176 H Lactic Acid Calcium Phosphorus Magnesium Direct Bilirubin AST ALT Alkaline Phosphatase Lactate Dehydrogenase Troponin T C-Reactive Protein Total Protein Albumin Prealbumin Triglycerides Cholesterol LDL Cholesterol Direct HDL Cholesterol Urine pH Urine WBC (Auto) Urine Creatinine Urine Total Protein Fluid Total Protein Vancomycin Trough Rheumatoid Factor Complement C4 Miscellaneous Test Crossmatch See Detail 12/17/16 12/17/16 12/17/16 00:14 04:00 05:00 WBC 20.0 H RBC 2.99 L Hgb 8.5 L Hct 25.7 L MCV MCH MCHC RDW 17.2 H Plt Count Lymph % (Auto) [place] % (Auto) Lymph # [place] # Baso # Seg Neutrophils % Seg Neuts % (Manual) Lymphocytes % (Manual) Monocytes % (Manual) Eosinophils % (Manual) Basophils % (Manual) Nucleated RBC % Seg Neutrophils # Seg Neutrophils # Man Lymphocytes # (Manual) Monocytes # (Manual) Eosinophils # (Manual) Basophils # (Manual) PT INR Fibrinogen dRVVT Confirm Interp Factor V Activity POC ABG pH POC ABG pCO2 POC ABG pO2 ABG pO2 ABG HCO3 ABG Base Excess ABG Hemoglobin Oxyhemoglobin Sodium Potassium Chloride 97.7 L Carbon Dioxide BUN 73 H Creatinine 1.7 H Glucose 136 H POC Glucose 148 H Lactic Acid Calcium Phosphorus 2.20 L Magnesium 2.70 H Direct Bilirubin AST ALT Alkaline Phosphatase Lactate Dehydrogenase Troponin T C-Reactive Protein Total Protein Albumin Prealbumin Triglycerides Cholesterol LDL Cholesterol Direct HDL Cholesterol Urine pH Urine WBC (Auto) Urine Creatinine Urine Total Protein Fluid Total Protein Vancomycin Trough Rheumatoid Factor Complement C4 Miscellaneous Test Crossmatch 12/17/16 12/17/16 12/17/16 05:39 12:50 16:32 WBC RBC Hgb Hct MCV MCH MCHC RDW Plt Count Lymph % (Auto) [place] % (Auto) Lymph # [place] # Baso # Seg Neutrophils % Seg Neuts % (Manual) Lymphocytes % (Manual) Monocytes % (Manual) Eosinophils % (Manual) Basophils % (Manual) Nucleated RBC % Seg Neutrophils # Seg Neutrophils # Man Lymphocytes # (Manual) Monocytes # (Manual) Eosinophils # (Manual) Basophils # (Manual) PT INR Fibrinogen dRVVT Confirm Interp Factor V Activity POC ABG pH POC ABG pCO2 POC ABG pO2 ABG pO2 ABG HCO3 ABG Base Excess ABG Hemoglobin Oxyhemoglobin Sodium Potassium Chloride Carbon Dioxide BUN Creatinine Glucose POC Glucose 162 H 146 H 169 H Lactic Acid Calcium Phosphorus Magnesium Direct Bilirubin AST ALT Alkaline Phosphatase Lactate Dehydrogenase Troponin T C-Reactive Protein Total Protein Albumin Prealbumin Triglycerides Cholesterol LDL Cholesterol Direct HDL Cholesterol Urine pH Urine WBC (Auto) Urine Creatinine Urine Total Protein Fluid Total Protein Vancomycin Trough Rheumatoid Factor Complement C4 Miscellaneous Test Crossmatch 12/17/16 12/18/16 12/18/16 23:57 05:00 05:32 WBC RBC Hgb Hct MCV MCH MCHC RDW Plt Count Lymph % (Auto) [place] % (Auto) Lymph # [place] # Baso # Seg Neutrophils % Seg Neuts % (Manual) Lymphocytes % (Manual) Monocytes % (Manual) Eosinophils % (Manual) Basophils % (Manual) Nucleated RBC % Seg Neutrophils # Seg Neutrophils # Man Lymphocytes # (Manual) Monocytes # (Manual) Eosinophils # (Manual) Basophils # (Manual) PT INR Fibrinogen dRVVT Confirm Interp Factor V Activity POC ABG pH POC ABG pCO2 POC ABG pO2 ABG pO2 ABG HCO3 ABG Base Excess ABG Hemoglobin Oxyhemoglobin Sodium Potassium Chloride 97.0 L Carbon Dioxide BUN 63 H Creatinine 1.4 H Glucose 174 H POC Glucose 145 H 201 H Lactic Acid Calcium Phosphorus 1.70 L D Magnesium Direct Bilirubin AST ALT Alkaline Phosphatase 257 H Lactate Dehydrogenase Troponin T C-Reactive Protein Total Protein 5.9 L Albumin 1.8 L Prealbumin Triglycerides Cholesterol LDL Cholesterol Direct HDL Cholesterol Urine pH Urine WBC (Auto) Urine Creatinine Urine Total Protein Fluid Total Protein Vancomycin Trough Rheumatoid Factor Complement C4 Miscellaneous Test Crossmatch 12/18/16 12/18/16 12/18/16 11:43 16:52 23:52 WBC RBC Hgb Hct MCV MCH MCHC RDW Plt Count Lymph % (Auto) [place] % (Auto) Lymph # [place] # Baso # Seg Neutrophils % Seg Neuts % (Manual) Lymphocytes % (Manual) Monocytes % (Manual) Eosinophils % (Manual) Basophils % (Manual) Nucleated RBC % Seg Neutrophils # Seg Neutrophils # Man Lymphocytes # (Manual) Monocytes # (Manual) Eosinophils # (Manual) Basophils # (Manual) PT INR Fibrinogen dRVVT Confirm Interp Factor V Activity POC ABG pH POC ABG pCO2 POC ABG pO2 ABG pO2 ABG HCO3 ABG Base Excess ABG Hemoglobin Oxyhemoglobin Sodium Potassium Chloride Carbon Dioxide BUN Creatinine Glucose POC Glucose 177 H 110 H 162 H Lactic Acid Calcium Phosphorus Magnesium Direct Bilirubin AST ALT Alkaline Phosphatase Lactate Dehydrogenase Troponin T C-Reactive Protein Total Protein Albumin Prealbumin Triglycerides Cholesterol LDL Cholesterol Direct HDL Cholesterol Urine pH Urine WBC (Auto) Urine Creatinine Urine Total Protein Fluid Total Protein Vancomycin Trough Rheumatoid Factor Complement C4 Miscellaneous Test Crossmatch 12/19/16 12/19/16 12/19/16 05:02 05:24 09:30 WBC 20.1 H RBC 2.73 L Hgb 7.6 L Hct 23.6 L MCV MCH MCHC RDW 17.6 H Plt Count Lymph % (Auto) [place] % (Auto) Lymph # [place] # Baso # Seg Neutrophils % Seg Neuts % (Manual) Lymphocytes % (Manual) 13.0 L Monocytes % (Manual) Eosinophils % (Manual) Basophils % (Manual) Nucleated RBC % 1.0 H Seg Neutrophils # Seg Neutrophils # Man 12.9 H Lymphocytes # (Manual) Monocytes # (Manual) 1.4 H Eosinophils # (Manual) Basophils # (Manual) 0.2 H PT INR Fibrinogen dRVVT Confirm Interp Factor V Activity POC ABG pH POC ABG pCO2 POC ABG pO2 ABG pO2 ABG HCO3 ABG Base Excess ABG Hemoglobin Oxyhemoglobin Sodium Potassium Chloride 97.8 L Carbon Dioxide BUN 84 H Creatinine 1.6 H Glucose 133 H POC Glucose 134 H Lactic Acid Calcium Phosphorus Magnesium Direct Bilirubin AST ALT Alkaline Phosphatase Lactate Dehydrogenase Troponin T C-Reactive Protein Total Protein Albumin Prealbumin Triglycerides Cholesterol LDL Cholesterol Direct HDL Cholesterol Urine pH Urine WBC (Auto) Urine Creatinine Urine Total Protein Fluid Total Protein Vancomycin Trough Rheumatoid Factor Complement C4 Miscellaneous Test Crossmatch 12/19/16 12/19/16 12/19/16 09:36 11:12 18:29 WBC RBC Hgb Hct MCV MCH MCHC RDW Plt Count Lymph % (Auto) [place] % (Auto) Lymph # [place] # Baso # Seg Neutrophils % Seg Neuts % (Manual) Lymphocytes % (Manual) Monocytes % (Manual) Eosinophils % (Manual) Basophils % (Manual) Nucleated RBC % Seg Neutrophils # Seg Neutrophils # Man Lymphocytes # (Manual) Monocytes # (Manual) Eosinophils # (Manual) Basophils # (Manual) PT INR Fibrinogen dRVVT Confirm Interp Factor V Activity POC ABG pH 7.503 H POC ABG pCO2 30.1 L POC ABG pO2 ABG pO2 ABG HCO3 ABG Base Excess ABG Hemoglobin Oxyhemoglobin Sodium Potassium Chloride Carbon Dioxide BUN Creatinine Glucose POC Glucose 138 H 156 H Lactic Acid Calcium Phosphorus Magnesium Direct Bilirubin AST ALT Alkaline Phosphatase Lactate Dehydrogenase Troponin T C-Reactive Protein Total Protein Albumin Prealbumin Triglycerides Cholesterol LDL Cholesterol Direct HDL Cholesterol Urine pH Urine WBC (Auto) Urine Creatinine Urine Total Protein Fluid Total Protein Vancomycin Trough Rheumatoid Factor Complement C4 Miscellaneous Test Crossmatch 12/20/16 12/20/16 12/20/16 00:03 06:17 07:07 WBC RBC Hgb Hct MCV MCH MCHC RDW Plt Count Lymph % (Auto) [place] % (Auto) Lymph # [place] # Baso # Seg Neutrophils % Seg Neuts % (Manual) Lymphocytes % (Manual) Monocytes % (Manual) Eosinophils % (Manual) Basophils % (Manual) Nucleated RBC % Seg Neutrophils # Seg Neutrophils # Man Lymphocytes # (Manual) Monocytes # (Manual) Eosinophils # (Manual) Basophils # (Manual) PT INR Fibrinogen dRVVT Confirm Interp Factor V Activity POC ABG pH POC ABG pCO2 POC ABG pO2 ABG pO2 ABG HCO3 ABG Base Excess ABG Hemoglobin Oxyhemoglobin Sodium Potassium Chloride 97.1 L Carbon Dioxide 20 L BUN 97 H Creatinine 1.8 H Glucose 153 H POC Glucose 152 H 175 H Lactic Acid Calcium Phosphorus Magnesium Direct Bilirubin AST ALT Alkaline Phosphatase Lactate Dehydrogenase Troponin T C-Reactive Protein Total Protein Albumin Prealbumin Triglycerides Cholesterol LDL Cholesterol Direct HDL Cholesterol Urine pH Urine WBC (Auto) Urine Creatinine Urine Total Protein Fluid Total Protein Vancomycin Trough Rheumatoid Factor Complement C4 Miscellaneous Test Crossmatch 12/20/16 12/20/16 12/20/16 12:00 17:42 23:53 WBC RBC Hgb Hct MCV MCH MCHC RDW Plt Count Lymph % (Auto) [place] % (Auto) Lymph # [place] # Baso # Seg Neutrophils % Seg Neuts % (Manual) Lymphocytes % (Manual) Monocytes % (Manual) Eosinophils % (Manual) Basophils % (Manual) Nucleated RBC % Seg Neutrophils # Seg Neutrophils # Man Lymphocytes # (Manual) Monocytes # (Manual) Eosinophils # (Manual) Basophils # (Manual) PT INR Fibrinogen dRVVT Confirm Interp Factor V Activity POC ABG pH POC ABG pCO2 POC ABG pO2 ABG pO2 ABG HCO3 ABG Base Excess ABG Hemoglobin Oxyhemoglobin Sodium Potassium Chloride Carbon Dioxide BUN Creatinine Glucose POC Glucose 141 H 156 H 132 H Lactic Acid Calcium Phosphorus Magnesium Direct Bilirubin AST ALT Alkaline Phosphatase Lactate Dehydrogenase Troponin T C-Reactive Protein Total Protein Albumin Prealbumin Triglycerides Cholesterol LDL Cholesterol Direct HDL Cholesterol Urine pH Urine WBC (Auto) Urine Creatinine Urine Total Protein Fluid Total Protein Vancomycin Trough Rheumatoid Factor Complement C4 Miscellaneous Test Crossmatch 12/21/16 12/21/16 12/21/16 05:49 08:50 12:19 WBC RBC Hgb Hct MCV MCH MCHC RDW Plt Count Lymph % (Auto) [place] % (Auto) Lymph # [place] # Baso # Seg Neutrophils % Seg Neuts % (Manual) Lymphocytes % (Manual) Monocytes % (Manual) Eosinophils % (Manual) Basophils % (Manual) Nucleated RBC % Seg Neutrophils # Seg Neutrophils # Man Lymphocytes # (Manual) Monocytes # (Manual) Eosinophils # (Manual) Basophils # (Manual) PT INR Fibrinogen dRVVT Confirm Interp Factor V Activity POC ABG pH POC ABG pCO2 POC ABG pO2 ABG pO2 ABG HCO3 ABG Base Excess ABG Hemoglobin Oxyhemoglobin Sodium Potassium 5.2 H D Chloride Carbon Dioxide BUN 63 H Creatinine Glucose 122 H POC Glucose 132 H 136 H Lactic Acid Calcium 8.3 L Phosphorus Magnesium Direct Bilirubin AST ALT Alkaline Phosphatase Lactate Dehydrogenase Troponin T C-Reactive Protein Total Protein Albumin Prealbumin Triglycerides Cholesterol LDL Cholesterol Direct HDL Cholesterol Urine pH Urine WBC (Auto) Urine Creatinine Urine Total Protein Fluid Total Protein Vancomycin Trough Rheumatoid Factor Complement C4 Miscellaneous Test Crossmatch 12/21/16 12/21/16 12/22/16 17:22 23:58 05:49 WBC RBC Hgb Hct MCV MCH MCHC RDW Plt Count Lymph % (Auto) [place] % (Auto) Lymph # [place] # Baso # Seg Neutrophils % Seg Neuts % (Manual) Lymphocytes % (Manual) Monocytes % (Manual) Eosinophils % (Manual) Basophils % (Manual) Nucleated RBC % Seg Neutrophils # Seg Neutrophils # Man Lymphocytes # (Manual) Monocytes # (Manual) Eosinophils # (Manual) Basophils # (Manual) PT INR Fibrinogen dRVVT Confirm Interp Factor V Activity POC ABG pH POC ABG pCO2 POC ABG pO2 ABG pO2 ABG HCO3 ABG Base Excess ABG Hemoglobin Oxyhemoglobin Sodium Potassium Chloride Carbon Dioxide BUN Creatinine Glucose POC Glucose 135 H 149 H 140 H Lactic Acid Calcium Phosphorus Magnesium Direct Bilirubin AST ALT Alkaline Phosphatase Lactate Dehydrogenase Troponin T C-Reactive Protein Total Protein Albumin Prealbumin Triglycerides Cholesterol LDL Cholesterol Direct HDL Cholesterol Urine pH Urine WBC (Auto) Urine Creatinine Urine Total Protein Fluid Total Protein Vancomycin Trough Rheumatoid Factor Complement C4 Miscellaneous Test Crossmatch 12/22/16 12/22/16 12/22/16 06:10 11:17 17:31 WBC RBC Hgb Hct MCV MCH MCHC RDW Plt Count Lymph % (Auto) [place] % (Auto) Lymph # [place] # Baso # Seg Neutrophils % Seg Neuts % (Manual) Lymphocytes % (Manual) Monocytes % (Manual) Eosinophils % (Manual) Basophils % (Manual) Nucleated RBC % Seg Neutrophils # Seg Neutrophils # Man Lymphocytes # (Manual) Monocytes # (Manual) Eosinophils # (Manual) Basophils # (Manual) PT INR Fibrinogen dRVVT Confirm Interp Factor V Activity POC ABG pH POC ABG pCO2 POC ABG pO2 ABG pO2 ABG HCO3 ABG Base Excess ABG Hemoglobin Oxyhemoglobin Sodium Potassium Chloride Carbon Dioxide BUN 76 H Creatinine 1.5 H Glucose 241 H POC Glucose 193 H 148 H Lactic Acid Calcium Phosphorus Magnesium Direct Bilirubin AST ALT Alkaline Phosphatase Lactate Dehydrogenase Troponin T C-Reactive Protein Total Protein Albumin Prealbumin Triglycerides Cholesterol LDL Cholesterol Direct HDL Cholesterol Urine pH Urine WBC (Auto) Urine Creatinine Urine Total Protein Fluid Total Protein Vancomycin Trough Rheumatoid Factor Complement C4 Miscellaneous Test Crossmatch 12/22/16 12/23/16 12/23/16 23:58 05:00 05:26 WBC RBC Hgb Hct MCV MCH MCHC RDW Plt Count Lymph % (Auto) [place] % (Auto) Lymph # [place] # Baso # Seg Neutrophils % Seg Neuts % (Manual) Lymphocytes % (Manual) Monocytes % (Manual) Eosinophils % (Manual) Basophils % (Manual) Nucleated RBC % Seg Neutrophils # Seg Neutrophils # Man Lymphocytes # (Manual) Monocytes # (Manual) Eosinophils # (Manual) Basophils # (Manual) PT INR Fibrinogen dRVVT Confirm Interp Factor V Activity POC ABG pH POC ABG pCO2 POC ABG pO2 ABG pO2 ABG HCO3 ABG Base Excess ABG Hemoglobin Oxyhemoglobin Sodium Potassium Chloride Carbon Dioxide BUN 49 H Creatinine Glucose 143 H POC Glucose 165 H 154 H Lactic Acid Calcium 8.2 L Phosphorus Magnesium 1.60 L Direct Bilirubin AST ALT Alkaline Phosphatase Lactate Dehydrogenase Troponin T C-Reactive Protein Total Protein Albumin Prealbumin Triglycerides Cholesterol LDL Cholesterol Direct HDL Cholesterol Urine pH Urine WBC (Auto) Urine Creatinine Urine Total Protein Fluid Total Protein Vancomycin Trough Rheumatoid Factor Complement C4 Miscellaneous Test Crossmatch 12/23/16 12/23/16 12/24/16 12:35 17:01 00:01 WBC RBC Hgb Hct MCV MCH MCHC RDW Plt Count Lymph % (Auto) [place] % (Auto) Lymph # [place] # Baso # Seg Neutrophils % Seg Neuts % (Manual) Lymphocytes % (Manual) Monocytes % (Manual) Eosinophils % (Manual) Basophils % (Manual) Nucleated RBC % Seg Neutrophils # Seg Neutrophils # Man Lymphocytes # (Manual) Monocytes # (Manual) Eosinophils # (Manual) Basophils # (Manual) PT INR Fibrinogen dRVVT Confirm Interp Factor V Activity POC ABG pH POC ABG pCO2 POC ABG pO2 ABG pO2 ABG HCO3 ABG Base Excess ABG Hemoglobin Oxyhemoglobin Sodium Potassium Chloride Carbon Dioxide BUN Creatinine Glucose POC Glucose 164 H 149 H 135 H Lactic Acid Calcium Phosphorus Magnesium Direct Bilirubin AST ALT Alkaline Phosphatase Lactate Dehydrogenase Troponin T C-Reactive Protein Total Protein Albumin Prealbumin Triglycerides Cholesterol LDL Cholesterol Direct HDL Cholesterol Urine pH Urine WBC (Auto) Urine Creatinine Urine Total Protein Fluid Total Protein Vancomycin Trough Rheumatoid Factor Complement C4 Miscellaneous Test Crossmatch 12/24/16 12/24/16 12/24/16 05:41 07:01 11:38 WBC RBC Hgb Hct MCV MCH MCHC RDW Plt Count Lymph % (Auto) [place] % (Auto) Lymph # [place] # Baso # Seg Neutrophils % Seg Neuts % (Manual) Lymphocytes % (Manual) Monocytes % (Manual) Eosinophils % (Manual) Basophils % (Manual) Nucleated RBC % Seg Neutrophils # Seg Neutrophils # Man Lymphocytes # (Manual) Monocytes # (Manual) Eosinophils # (Manual) Basophils # (Manual) PT INR Fibrinogen dRVVT Confirm Interp Factor V Activity POC ABG pH POC ABG pCO2 POC ABG pO2 ABG pO2 ABG HCO3 ABG Base Excess ABG Hemoglobin Oxyhemoglobin Sodium Potassium Chloride Carbon Dioxide BUN 72 H Creatinine 1.3 H Glucose 130 H POC Glucose 132 H 156 H Lactic Acid Calcium 8.2 L Phosphorus Magnesium Direct Bilirubin AST ALT Alkaline Phosphatase Lactate Dehydrogenase Troponin T C-Reactive Protein Total Protein Albumin Prealbumin Triglycerides Cholesterol LDL Cholesterol Direct HDL Cholesterol Urine pH Urine WBC (Auto) Urine Creatinine Urine Total Protein Fluid Total Protein Vancomycin Trough Rheumatoid Factor Complement C4 Miscellaneous Test Crossmatch 12/24/16 12/25/16 12/25/16 17:53 00:23 05:45 WBC RBC Hgb Hct MCV MCH MCHC RDW Plt Count Lymph % (Auto) [place] % (Auto) Lymph # [place] # Baso # Seg Neutrophils % Seg Neuts % (Manual) Lymphocytes % (Manual) Monocytes % (Manual) Eosinophils % (Manual) Basophils % (Manual) Nucleated RBC % Seg Neutrophils # Seg Neutrophils # Man Lymphocytes # (Manual) Monocytes # (Manual) Eosinophils # (Manual) Basophils # (Manual) PT INR Fibrinogen dRVVT Confirm Interp Factor V Activity POC ABG pH POC ABG pCO2 POC ABG pO2 ABG pO2 ABG HCO3 ABG Base Excess ABG Hemoglobin Oxyhemoglobin Sodium 146 H Potassium Chloride Carbon Dioxide BUN 51 H Creatinine Glucose 109 H POC Glucose 169 H 117 H Lactic Acid Calcium Phosphorus Magnesium Direct Bilirubin AST ALT Alkaline Phosphatase Lactate Dehydrogenase Troponin T C-Reactive Protein Total Protein Albumin Prealbumin Triglycerides Cholesterol LDL Cholesterol Direct HDL Cholesterol Urine pH Urine WBC (Auto) Urine Creatinine Urine Total Protein Fluid Total Protein Vancomycin Trough Rheumatoid Factor Complement C4 Miscellaneous Test Crossmatch 12/25/16 12/25/16 12/25/16 06:43 11:29 17:14 WBC RBC Hgb Hct MCV MCH MCHC RDW Plt Count Lymph % (Auto) [place] % (Auto) Lymph # [place] # Baso # Seg Neutrophils % Seg Neuts % (Manual) Lymphocytes % (Manual) Monocytes % (Manual) Eosinophils % (Manual) Basophils % (Manual) Nucleated RBC % Seg Neutrophils # Seg Neutrophils # Man Lymphocytes # (Manual) Monocytes # (Manual) Eosinophils # (Manual) Basophils # (Manual) PT INR Fibrinogen dRVVT Confirm Interp Factor V Activity POC ABG pH POC ABG pCO2 POC ABG pO2 ABG pO2 ABG HCO3 ABG Base Excess ABG Hemoglobin Oxyhemoglobin Sodium Potassium Chloride Carbon Dioxide BUN Creatinine Glucose POC Glucose 117 H 128 H 120 H Lactic Acid Calcium Phosphorus Magnesium Direct Bilirubin AST ALT Alkaline Phosphatase Lactate Dehydrogenase Troponin T C-Reactive Protein Total Protein Albumin Prealbumin Triglycerides Cholesterol LDL Cholesterol Direct HDL Cholesterol Urine pH Urine WBC (Auto) Urine Creatinine Urine Total Protein Fluid Total Protein Vancomycin Trough Rheumatoid Factor Complement C4 Miscellaneous Test Crossmatch 12/25/16 12/26/16 12/26/16 23:54 05:40 05:50 WBC 16.2 H RBC 2.32 L Hgb 6.2 L Hct 20.1 L MCV MCH 27 L MCHC RDW 18.6 H Plt Count Lymph % (Auto) [place] % (Auto) Lymph # [place] # Baso # Seg Neutrophils % Seg Neuts % (Manual) Lymphocytes % (Manual) Monocytes % (Manual) Eosinophils % (Manual) Basophils % (Manual) Nucleated RBC % Seg Neutrophils # Seg Neutrophils # Man Lymphocytes # (Manual) Monocytes # (Manual) Eosinophils # (Manual) Basophils # (Manual) PT INR Fibrinogen dRVVT Confirm Interp Factor V Activity POC ABG pH POC ABG pCO2 POC ABG pO2 ABG pO2 ABG HCO3 ABG Base Excess ABG Hemoglobin Oxyhemoglobin Sodium Potassium Chloride Carbon Dioxide BUN Creatinine Glucose POC Glucose 126 H 132 H Lactic Acid Calcium Phosphorus Magnesium Direct Bilirubin AST ALT Alkaline Phosphatase Lactate Dehydrogenase Troponin T C-Reactive Protein Total Protein Albumin Prealbumin Triglycerides Cholesterol LDL Cholesterol Direct HDL Cholesterol Urine pH Urine WBC (Auto) Urine Creatinine Urine Total Protein Fluid Total Protein Vancomycin Trough Rheumatoid Factor Complement C4 Miscellaneous Test Crossmatch 12/26/16 12/26/16 12/26/16 05:50 12:17 12:33 WBC RBC Hgb Hct MCV MCH MCHC RDW Plt Count Lymph % (Auto) [place] % (Auto) Lymph # [place] # Baso # Seg Neutrophils % Seg Neuts % (Manual) Lymphocytes % (Manual) Monocytes % (Manual) Eosinophils % (Manual) Basophils % (Manual) Nucleated RBC % Seg Neutrophils # Seg Neutrophils # Man Lymphocytes # (Manual) Monocytes # (Manual) Eosinophils # (Manual) Basophils # (Manual) PT INR Fibrinogen dRVVT Confirm Interp Factor V Activity POC ABG pH POC ABG pCO2 POC ABG pO2 ABG pO2 ABG HCO3 ABG Base Excess ABG Hemoglobin Oxyhemoglobin Sodium Potassium Chloride Carbon Dioxide BUN 73 H Creatinine 1.3 H Glucose 113 H POC Glucose 117 H Lactic Acid Calcium Phosphorus Magnesium Direct Bilirubin AST ALT Alkaline Phosphatase Lactate Dehydrogenase Troponin T C-Reactive Protein Total Protein Albumin Prealbumin Triglycerides Cholesterol LDL Cholesterol Direct HDL Cholesterol Urine pH Urine WBC (Auto) Urine Creatinine Urine Total Protein Fluid Total Protein Vancomycin Trough Rheumatoid Factor Complement C4 Miscellaneous Test Crossmatch See Detail 12/26/16 12/26/16 12/27/16 20:00 23:21 05:00 WBC RBC Hgb 8.4 L Hct 26.3 L D MCV MCH MCHC RDW Plt Count Lymph % (Auto) [place] % (Auto) Lymph # [place] # Baso # Seg Neutrophils % Seg Neuts % (Manual) Lymphocytes % (Manual) Monocytes % (Manual) Eosinophils % (Manual) Basophils % (Manual) Nucleated RBC % Seg Neutrophils # Seg Neutrophils # Man Lymphocytes # (Manual) Monocytes # (Manual) Eosinophils # (Manual) Basophils # (Manual) PT INR Fibrinogen dRVVT Confirm Interp Factor V Activity POC ABG pH POC ABG pCO2 POC ABG pO2 ABG pO2 ABG HCO3 ABG Base Excess ABG Hemoglobin Oxyhemoglobin Sodium Potassium Chloride Carbon Dioxide BUN 85 H Creatinine 1.6 H Glucose 118 H POC Glucose 124 H Lactic Acid Calcium Phosphorus 4.80 H Magnesium Direct Bilirubin AST ALT Alkaline Phosphatase Lactate Dehydrogenase Troponin T C-Reactive Protein Total Protein Albumin Prealbumin Triglycerides Cholesterol LDL Cholesterol Direct HDL Cholesterol Urine pH Urine WBC (Auto) Urine Creatinine Urine Total Protein Fluid Total Protein Vancomycin Trough Rheumatoid Factor Complement C4 Miscellaneous Test Crossmatch 12/27/16 12/27/16 12/27/16 05:00 05:35 12:24 WBC RBC Hgb 7.6 L Hct 22.8 L MCV MCH MCHC RDW Plt Count Lymph % (Auto) [place] % (Auto) Lymph # [place] # Baso # Seg Neutrophils % Seg Neuts % (Manual) Lymphocytes % (Manual) Monocytes % (Manual) Eosinophils % (Manual) Basophils % (Manual) Nucleated RBC % Seg Neutrophils # Seg Neutrophils # Man Lymphocytes # (Manual) Monocytes # (Manual) Eosinophils # (Manual) Basophils # (Manual) PT INR Fibrinogen dRVVT Confirm Interp Factor V Activity POC ABG pH POC ABG pCO2 POC ABG pO2 ABG pO2 ABG HCO3 ABG Base Excess ABG Hemoglobin Oxyhemoglobin Sodium Potassium Chloride Carbon Dioxide BUN Creatinine Glucose POC Glucose 115 H 131 H Lactic Acid Calcium Phosphorus Magnesium Direct Bilirubin AST ALT Alkaline Phosphatase Lactate Dehydrogenase Troponin T C-Reactive Protein Total Protein Albumin Prealbumin Triglycerides Cholesterol LDL Cholesterol Direct HDL Cholesterol Urine pH Urine WBC (Auto) Urine Creatinine Urine Total Protein Fluid Total Protein Vancomycin Trough Rheumatoid Factor Complement C4 Miscellaneous Test Crossmatch 12/27/16 12/28/16 12/28/16 17:16 00:18 04:00 WBC RBC Hgb Hct MCV MCH MCHC RDW Plt Count Lymph % (Auto) [place] % (Auto) Lymph # [place] # Baso # Seg Neutrophils % Seg Neuts % (Manual) Lymphocytes % (Manual) Monocytes % (Manual) Eosinophils % (Manual) Basophils % (Manual) Nucleated RBC % Seg Neutrophils # Seg Neutrophils # Man Lymphocytes # (Manual) Monocytes # (Manual) Eosinophils # (Manual) Basophils # (Manual) PT INR Fibrinogen dRVVT Confirm Interp Factor V Activity POC ABG pH POC ABG pCO2 POC ABG pO2 ABG pO2 ABG HCO3 ABG Base Excess ABG Hemoglobin Oxyhemoglobin Sodium Potassium 3.5 L Chloride Carbon Dioxide BUN 57 H Creatinine Glucose 118 H POC Glucose 136 H 120 H Lactic Acid Calcium 8.3 L Phosphorus Magnesium Direct Bilirubin AST ALT Alkaline Phosphatase Lactate Dehydrogenase Troponin T C-Reactive Protein Total Protein Albumin Prealbumin Triglycerides Cholesterol LDL Cholesterol Direct HDL Cholesterol Urine pH Urine WBC (Auto) Urine Creatinine Urine Total Protein Fluid Total Protein Vancomycin Trough Rheumatoid Factor Complement C4 Miscellaneous Test Crossmatch 12/28/16 12/28/16 12/28/16 04:00 05:11 08:30 WBC 17.0 H RBC 2.58 L Hgb 7.1 L Hct 22.0 L MCV MCH MCHC RDW 17.6 H Plt Count Lymph % (Auto) 12.2 L [place] % (Auto) Lymph # [place] # 1.1 H Baso # Seg Neutrophils % 80.5 H Seg Neuts % (Manual) Lymphocytes % (Manual) Monocytes % (Manual) Eosinophils % (Manual) Basophils % (Manual) Nucleated RBC % Seg Neutrophils # 13.7 H Seg Neutrophils # Man Lymphocytes # (Manual) Monocytes # (Manual) Eosinophils # (Manual) Basophils # (Manual) PT 16.1 H INR 1.23 H Fibrinogen dRVVT Confirm Interp Factor V Activity POC ABG pH POC ABG pCO2 POC ABG pO2 ABG pO2 ABG HCO3 ABG Base Excess ABG Hemoglobin Oxyhemoglobin Sodium Potassium Chloride Carbon Dioxide BUN Creatinine Glucose POC Glucose 122 H Lactic Acid Calcium Phosphorus Magnesium Direct Bilirubin AST ALT Alkaline Phosphatase Lactate Dehydrogenase Troponin T C-Reactive Protein Total Protein Albumin Prealbumin Triglycerides Cholesterol LDL Cholesterol Direct HDL Cholesterol Urine pH Urine WBC (Auto) Urine Creatinine Urine Total Protein Fluid Total Protein Vancomycin Trough Rheumatoid Factor Complement C4 Miscellaneous Test Crossmatch 12/28/16 12/28/16 12/28/16 12:27 16:32 23:46 WBC RBC Hgb Hct MCV MCH MCHC RDW Plt Count Lymph % (Auto) [place] % (Auto) Lymph # [place] # Baso # Seg Neutrophils % Seg Neuts % (Manual) Lymphocytes % (Manual) Monocytes % (Manual) Eosinophils % (Manual) Basophils % (Manual) Nucleated RBC % Seg Neutrophils # Seg Neutrophils # Man Lymphocytes # (Manual) Monocytes # (Manual) Eosinophils # (Manual) Basophils # (Manual) PT INR Fibrinogen dRVVT Confirm Interp Factor V Activity POC ABG pH POC ABG pCO2 POC ABG pO2 ABG pO2 ABG HCO3 ABG Base Excess ABG Hemoglobin Oxyhemoglobin Sodium Potassium Chloride Carbon Dioxide BUN Creatinine Glucose POC Glucose 127 H 117 H 108 H Lactic Acid Calcium Phosphorus Magnesium Direct Bilirubin AST ALT Alkaline Phosphatase Lactate Dehydrogenase Troponin T C-Reactive Protein Total Protein Albumin Prealbumin Triglycerides Cholesterol LDL Cholesterol Direct HDL Cholesterol Urine pH Urine WBC (Auto) Urine Creatinine Urine Total Protein Fluid Total Protein Vancomycin Trough Rheumatoid Factor Complement C4 Miscellaneous Test Crossmatch 12/29/16 12/29/16 12/29/16 05:15 05:15 05:32 WBC RBC Hgb Hct MCV MCH MCHC RDW Plt Count Lymph % (Auto) [place] % (Auto) Lymph # [place] # Baso # Seg Neutrophils % Seg Neuts % (Manual) Lymphocytes % (Manual) Monocytes % (Manual) Eosinophils % (Manual) Basophils % (Manual) Nucleated RBC % Seg Neutrophils # Seg Neutrophils # Man Lymphocytes # (Manual) Monocytes # (Manual) Eosinophils # (Manual) Basophils # (Manual) PT INR Fibrinogen dRVVT Confirm Interp Factor V Activity POC ABG pH POC ABG pCO2 POC ABG pO2 ABG pO2 ABG HCO3 ABG Base Excess ABG Hemoglobin Oxyhemoglobin Sodium Potassium Chloride Carbon Dioxide BUN 74 H Creatinine 1.6 H Glucose 111 H POC Glucose 123 H Lactic Acid Calcium Phosphorus Magnesium Direct Bilirubin AST ALT Alkaline Phosphatase Lactate Dehydrogenase Troponin T C-Reactive Protein Total Protein Albumin Prealbumin 0.110 L Triglycerides Cholesterol LDL Cholesterol Direct HDL Cholesterol Urine pH Urine WBC (Auto) Urine Creatinine Urine Total Protein Fluid Total Protein Vancomycin Trough Rheumatoid Factor Complement C4 Miscellaneous Test Crossmatch Allied health notes reviewed: RT
[2016-12-29] MEDS: DURAGESIC TD SCH (12:54)
[2016-12-29] MEDS: REGLAN IV SCH (12:57)
--- NOTE | 2016-12-29 13:16 | Progress Note ---
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 Order written to turn side to side q2h. 2) Wound care per the Wound Care nurse. 3) Intense nutritional support. Would recommend PEG when this is deemed appropriate. 4) Check f/u CBC. Subjective Date of service: 12/29/16 Patient Reports: Positive: no new complaints Objective Vital Signs - 12hr 12/29/16 12/29/16 12/29/16 01:15 01:30 01:45 Temperature Pulse Rate 112 H 109 H 109 H Pulse Rate [ Anterior Bilateral Throughout] Pulse Rate [ From Monitor] Respiratory 28 H 26 H 27 H Rate Respiratory Rate [Anterior Bilateral Throughout] Blood Pressure 115/59 110/60 117/65 O2 Sat by Pulse 96 96 96 Oximetry O2 Sat by Pulse Oximetry [ Assessment] 12/29/16 12/29/16 12/29/16 01:56 02:00 02:04 Temperature Pulse Rate 112 H Pulse Rate [ 110 H 112 H Anterior Bilateral Throughout] Pulse Rate [ From Monitor] Respiratory 20 Rate Respiratory 15 16 Rate [Anterior Bilateral Throughout] Blood Pressure 116/67 O2 Sat by Pulse 98 Oximetry O2 Sat by Pulse Oximetry [ Assessment] 12/29/16 12/29/16 12/29/16 02:15 02:30 02:45 Temperature Pulse Rate 113 H 111 H 111 H Pulse Rate [ Anterior Bilateral Throughout] Pulse Rate [ From Monitor] Respiratory 27 H 27 H 26 H Rate Respiratory Rate [Anterior Bilateral Throughout] Blood Pressure 99/56 105/58 105/57 O2 Sat by Pulse 95 95 96 Oximetry O2 Sat by Pulse Oximetry [ Assessment] 12/29/16 12/29/16 12/29/16 03:00 03:15 03:30 Temperature Pulse Rate 115 H 130 H Pulse Rate [ Anterior Bilateral Throughout] Pulse Rate [ From Monitor] Respiratory 25 H 28 H Rate Respiratory Rate [Anterior Bilateral Throughout] Blood Pressure 116/65 116/65 141/84 O2 Sat by Pulse 97 99 100 Oximetry O2 Sat by Pulse Oximetry [ Assessment] 12/29/16 12/29/16 12/29/16 03:45 04:00 04:15 Temperature 98.8 F Pulse Rate 118 H 115 H 109 H Pulse Rate [ Anterior Bilateral Throughout] Pulse Rate [ 108 H From Monitor] Respiratory 27 H 22 25 H Rate Respiratory Rate [Anterior Bilateral Throughout] Blood Pressure 115/66 121/73 96/58 O2 Sat by Pulse 99 100 94 Oximetry O2 Sat by Pulse Oximetry [ Assessment] 12/29/16 12/29/16 12/29/16 04:25 04:30 04:45 Temperature Pulse Rate 110 H 109 H 110 H Pulse Rate [ Anterior Bilateral Throughout] Pulse Rate [ From Monitor] Respiratory 26 H 25 H Rate Respiratory Rate [Anterior Bilateral Throughout] Blood Pressure 102/67 102/67 110/62 O2 Sat by Pulse 96 96 95 Oximetry O2 Sat by Pulse Oximetry [ Assessment] 12/29/16 12/29/16 12/29/16 05:00 05:15 05:30 Temperature Pulse Rate 112 H 110 H 109 H Pulse Rate [ Anterior Bilateral Throughout] Pulse Rate [ From Monitor] Respiratory 27 H 26 H 27 H Rate Respiratory Rate [Anterior Bilateral Throughout] Blood Pressure 116/65 116/70 113/65 O2 Sat by Pulse 95 97 97 Oximetry O2 Sat by Pulse Oximetry [ Assessment] 12/29/16 12/29/16 12/29/16 05:45 05:57 06:00 Temperature Pulse Rate 116 H 102 H 109 H Pulse Rate [ Anterior Bilateral Throughout] Pulse Rate [ From Monitor] Respiratory 21 26 H Rate Respiratory Rate [Anterior Bilateral Throughout] Blood Pressure 113/72 113/72 120/68 O2 Sat by Pulse 98 97 Oximetry O2 Sat by Pulse Oximetry [ Assessment] 12/29/16 12/29/16 12/29/16 06:15 06:30 06:45 Temperature Pulse Rate 108 H 110 H 110 H Pulse Rate [ Anterior Bilateral Throughout] Pulse Rate [ From Monitor] Respiratory 29 H 29 H 27 H Rate Respiratory Rate [Anterior Bilateral Throughout] Blood Pressure 111/64 117/68 120/69 O2 Sat by Pulse 98 98 98 Oximetry O2 Sat by Pulse Oximetry [ Assessment] 12/29/16 12/29/16 12/29/16 07:00 07:14 07:15 Temperature Pulse Rate 107 H 109 H 109 H Pulse Rate [ Anterior Bilateral Throughout] Pulse Rate [ From Monitor] Respiratory 26 H 28 H Rate Respiratory Rate [Anterior Bilateral Throughout] Blood Pressure 110/67 107/68 107/68 O2 Sat by Pulse 97 97 98 Oximetry O2 Sat by Pulse Oximetry [ Assessment] 12/29/16 12/29/16 12/29/16 07:19 07:24 07:30 Temperature Pulse Rate 111 H Pulse Rate [ 113 H Anterior Bilateral Throughout] Pulse Rate [ From Monitor] Respiratory 15 Rate Respiratory 14 Rate [Anterior Bilateral Throughout] Blood Pressure 114/60 O2 Sat by Pulse 94 Oximetry O2 Sat by Pulse 97 Oximetry [ Assessment] 12/29/16 12/29/16 12/29/16 07:45 07:50 08:00 Temperature 98.5 F Pulse Rate 112 H 117 H Pulse Rate [ Anterior Bilateral Throughout] Pulse Rate [ From Monitor] Respiratory 29 H 28 H Rate Respiratory Rate [Anterior Bilateral Throughout] Blood Pressure 116/70 109/49 O2 Sat by Pulse 97 94 Oximetry O2 Sat by Pulse Oximetry [ Assessment] 12/29/16 12/29/16 12/29/16 08:15 08:30 08:45 Temperature Pulse Rate 113 H 113 H 116 H Pulse Rate [ Anterior Bilateral Throughout] Pulse Rate [ From Monitor] Respiratory 23 35 H 27 H Rate Respiratory Rate [Anterior Bilateral Throughout] Blood Pressure 122/77 116/71 112/79 O2 Sat by Pulse 98 96 99 Oximetry O2 Sat by Pulse Oximetry [ Assessment] 12/29/16 12/29/16 12/29/16 09:00 09:15 09:19 Temperature Pulse Rate 117 H 118 H Pulse Rate [ Anterior Bilateral Throughout] Pulse Rate [ From Monitor] Respiratory 24 36 H Rate Respiratory Rate [Anterior Bilateral Throughout] Blood Pressure 133/95 129/91 129/91 O2 Sat by Pulse 100 100 Oximetry O2 Sat by Pulse Oximetry [ Assessment] 12/29/16 12/29/16 12/29/16 09:30 09:45 10:00 Temperature Pulse Rate 114 H 113 H 117 H Pulse Rate [ Anterior Bilateral Throughout] Pulse Rate [ From Monitor] Respiratory 22 12 27 H Rate Respiratory Rate [Anterior Bilateral Throughout] Blood Pressure 123/77 108/64 117/71 O2 Sat by Pulse 100 100 92 Oximetry O2 Sat by Pulse Oximetry [ Assessment] 12/29/16 12/29/16 12/29/16 10:15 10:30 10:45 Temperature Pulse Rate 115 H 118 H 118 H Pulse Rate [ Anterior Bilateral Throughout] Pulse Rate [ From Monitor] Respiratory 20 22 23 Rate Respiratory Rate [Anterior Bilateral Throughout] Blood Pressure 118/72 118/72 119/75 O2 Sat by Pulse 100 88 96 Oximetry O2 Sat by Pulse Oximetry [ Assessment] 12/29/16 12/29/16 12/29/16 11:00 11:15 11:30 Temperature Pulse Rate 116 H 117 H 121 H Pulse Rate [ Anterior Bilateral Throughout] Pulse Rate [ From Monitor] Respiratory 27 H 26 H 25 H Rate Respiratory Rate [Anterior Bilateral Throughout] Blood Pressure 113/68 121/76 129/78 O2 Sat by Pulse 91 98 99 Oximetry O2 Sat by Pulse Oximetry [ Assessment] 12/29/16 12/29/16 12/29/16 11:45 12:00 12:58 Temperature 99.8 F H Pulse Rate 119 H Pulse Rate [ Anterior Bilateral Throughout] Pulse Rate [ From Monitor] Respiratory 24 Rate Respiratory Rate [Anterior Bilateral Throughout] Blood Pressure 125/78 129/79 O2 Sat by Pulse 99 Oximetry O2 Sat by Pulse Oximetry [ Assessment] - Abdomen other ( NG tube is in place.) - Integumentary other (Sacral wound was not re-examined.) - Labs 12/28/16 04:00 12/29/16 05:15 Prealbumin today was 0.11. Diabetes panel 12/29/16 Range/Units 05:15 Sodium 142 (137-145) mmol/L Potassium 3.7 (3.6-5.0) mmol/L Chloride 100.8 (98-107) mmol/L Carbon Dioxide 23 (22-30) mmol/L BUN 74 H (7-17) mg/dL Creatinine 1.6 H (0.7-1.2) mg/dL Glucose 111 H (65-100) mg/dL Calcium 8.9 (8.4-10.2) mg/dL Calcium panel 12/29/16 Range/Units 05:15 Calcium 8.9 (8.4-10.2) mg/dL Pituitary panel 12/29/16 Range/Units 05:15 Sodium 142 (137-145) mmol/L Potassium 3.7 (3.6-5.0) mmol/L Chloride 100.8 (98-107) mmol/L Carbon Dioxide 23 (22-30) mmol/L BUN 74 H (7-17) mg/dL Creatinine 1.6 H (0.7-1.2) mg/dL Glucose 111 H (65-100) mg/dL Calcium 8.9 (8.4-10.2) mg/dL Adrenal panel 12/29/16 Range/Units 05:15 Sodium 142 (137-145) mmol/L Potassium 3.7 (3.6-5.0) mmol/L Chloride 100.8 (98-107) mmol/L Carbon Dioxide 23 (22-30) mmol/L BUN 74 H (7-17) mg/dL Creatinine 1.6 H (0.7-1.2) mg/dL Glucose 111 H (65-100) mg/dL Calcium 8.9 (8.4-10.2) mg/dL
[2016-12-29 14:34] LABS: Basophils # (Auto) 0.1 K/mm3 (0.0-0.1); Basophils % (Auto) 0.5 % (0.0-1.8); Eosinophils # (Auto) 0.1 K/mm3 (0.0-0.4); Eosinophils % (Auto) 0.5 % (0.0-4.3); Hematocrit 20.4 % (30.3-42.9); Hemoglobin 6.3 gm/dl (10.1-14.3); Lymphocytes # (Auto) 1.9 K/mm3 (1.2-5.4); Lymphocytes % (Auto) 14.1 % (13.4-35.0); Mean Corpuscular HGB Conc 31 % (30-34); Mean Corpuscular Hemoglobin 28 pg (28-32); Mean Corpuscular Volume 90 fl (79-97); Monocytes # (Auto) 0.9 K/mm3 (0.0-0.8); Monocytes % (Auto) 6.3 % (0.0-7.3); Platelet Count 272 K/mm3 (140-440); Red Blood Count 2.26 M/mm3 (3.65-5.03); Red Cell Distribution Width 18.3 % (13.2-15.2)
[2016-12-29] MEDS ORDERED: NACL 0.9% 500 ML 500 ML IV SCH (14:41)
[2016-12-29] MEDS: TRANSDERM-SCOP TD SCH (17:10)
--- NOTE | 2016-12-29 17:17 | Progress Note ---
Assessment and Plan Assessment and plan: Patient is 46-year-old woman with a history of hypertension, diabetes, asthma, hyperlipidemia, chronic kidney disease and anxiety , who was brought in by family because, she couldn't get her words out, her face was also twisted, she was admitted for acute CVA and accelerated hypertension, she had a hx of poor adherence with her medications, and uncontrolled htn. Patient's SBP on admission was noted be greater than 260. TPA was started but this was discontinued after 5 minutes because her blood pressure became uncontrolled. The TPA was not initiated again because the patient was outside the TPA window. Status post cardiac arrest , 11/21/16 - Received CPR and was resuscitated. - Patient is on amiodarone. Fever - resolved - Antibiotic discontinued today per ID - s/p R thoracentesis on 11/14, 240cc of serous fluid removed, cx of fluid was negative - Stool negative for C. difficile Severe Sepsis with septic shock - Patient has episode of fever and leukocytosis Surgical wound infection/gram-negative sepsis/candidemia/peritonitis - On TPN JUANITA, ESRD - on HD per nephrology Acute CVA with infarct - Neurology input appreciated - CT shows continued evolution of left MCA infarct with slight mass effect and edema, and there is no hemorrhage - PRINCE showed hyperdynamic with ef of 75%, neither clot nor septal defect seen - MRA Brain shows near complete occlusion of M2 and M3 of the left MCA - Repeat CT scan done on 09/11, shows stable findings - carotid doppler negative - Echo shows preserved systolic function but does show some left ventricular diastolic dysfunction - continue asa and statin Persistent vegetative state - This patient's needs placement at SNF - She was denied for LTACH Acute hypoxic respiratory failure requiring MV >96hrs - Status post tracheostomy, was on T piece Nosocomial acquired aspiration pneumonia/sepsis/UTI - patient has fever and communicated with patient's Nurse to call ID for revisit if the patient need antibiotics. Asthma/COPD exacerbation - ON trach, mechanical ventilation Status Post CVA Bilateral pleural effusion, s/p right thoracentesis A. fib with RVR Diabetes type 2. Continue sliding-scale regular insulin and Accu-Cheks. Hyperlipidemia. Continue statin Nutrition - TPN Anemia requiring multiple transfusions/acute blood loss - Hemoglobin this morning was 6.2 - will transfuse Sacral decubitus ulcer - Status post debridement Disposition. Very poor prognosis. The high probability of a clinically significant, sudden or life threatening deterioration of the [neurologic, CV] system(s) required my full and direct attention, intervention and personal management. The aggregate critical care time was [34] minutes. This time is in addition to time spent performing reported procedures but includes the following: [x] Data Review and interpretation [x] Patient assessment and monitoring of vital signs [x] Documentation [x] Medication orders and management History Interval history: Patient was seen and evaluated this morning, patient is in persistent vegetative state. Status post trach, fistulas on the skin around the stomach area. Sacral decubitus ulcer s/p debridement. Hospitalist Physical - Physical exam Narrative exam: Patient is on mechanical ventilation, on trach. Vital signs as documented. Head exam is unremarkable. No scleral icterus . Neck is without jugular venous distension, thyromegaly, or carotid bruits. Lungs are clear to auscultation. Cardiac exam reveals regular rate and Rhythm. First and second heart sounds normal. No murmurs, rubs or gallops. Abdominal exam reveals abscess draining from the PEG site, and multiple fistulas around the stomach. Extremities are nonedematous and both femoral and pedal pulses are normal. Sacral decubitus ulcer. [employer]: comatose - Constitutional Vitals: Temp Pulse Resp BP Pulse Ox 98.7 F 117 H 28 H 98/55 100 12/29/16 16:00 12/29/16 16:00 12/29/16 16:00 12/29/16 16:00 12/29/16 16:00 General appearance: Present: no acute distress, well-nourished, obese Results - Labs CBC & Chem 7: 12/29/16 13:45 12/29/16 05:15 Labs: Laboratory Last Values WBC 13.8 K/mm3 (4.5-11.0) H 12/29/16 13:45 RBC 2.26 M/mm3 (3.65-5.03) L 12/29/16 13:45 Hgb 6.3 gm/dl (10.1-14.3) L 12/29/16 13:45 Hct 20.4 % (30.3-42.9) L 12/29/16 13:45 MCV 90 fl (79-97) 12/29/16 13:45 MCH 28 pg (28-32) 12/29/16 13:45 MCHC 31 % (30-34) 12/29/16 13:45 RDW 18.3 % (13.2-15.2) H 12/29/16 13:45 Plt Count 272 K/mm3 (140-440) 12/29/16 13:45 Lymph % (Auto) 14.1 % (13.4-35.0) 12/29/16 13:45 Oliver % (Auto) 6.3 % (0.0-7.3) 12/29/16 13:45 Eos % (Auto) 0.5 % (0.0-4.3) 12/29/16 13:45 Baso % (Auto) 0.5 % (0.0-1.8) 12/29/16 13:45 Lymph # 1.9 K/mm3 (1.2-5.4) 12/29/16 13:45 Oliver # 0.9 K/mm3 (0.0-0.8) H 12/29/16 13:45 Eos # 0.1 K/mm3 (0.0-0.4) 12/29/16 13:45 Baso # 0.1 K/mm3 (0.0-0.1) 12/29/16 13:45 Add Manual Diff Complete 12/19/16 05:02 Total Counted 100 12/19/16 05:02 Seg Neutrophils % 78.6 % (40.0-70.0) H 12/29/16 13:45 Seg Neuts % (Manual) 64.0 % (40.0-70.0) 12/19/16 05:02 Band Neutrophils % 15.0 % 12/19/16 05:02 Lymphocytes % (Manual) 13.0 % (13.4-35.0) L 12/19/16 05:02 Reactive Lymphs % (Man) 0 % 12/19/16 05:02 Monocytes % (Manual) 7.0 % (0.0-7.3) 12/19/16 05:02 Eosinophils % (Manual) 0 % (0.0-4.3) 12/19/16 05:02 Basophils % (Manual) 1.0 % (0.0-1.8) 12/19/16 05:02 Metamyelocytes % 0 % 12/19/16 05:02 Myelocytes % 0 % 12/19/16 05:02 Promyelocytes % 0 % 12/19/16 05:02 Blast Cells % 0 % 12/19/16 05:02 Nucleated RBC % 1.0 % (0.0-0.9) H 12/19/16 05:02 Seg Neutrophils # 10.8 K/mm3 (1.8-7.7) H 12/29/16 13:45 Seg Neutrophils # Man 12.9 K/mm3 (1.8-7.7) H 12/19/16 05:02 Band Neutrophils # 3.0 K/mm3 12/19/16 05:02 Lymphocytes # (Manual) 2.6 K/mm3 (1.2-5.4) 12/19/16 05:02 Abs React Lymphs (Man) 0.0 K/mm3 12/19/16 05:02 Monocytes # (Manual) 1.4 K/mm3 (0.0-0.8) H 12/19/16 05:02 Eosinophils # (Manual) 0.0 K/mm3 (0.0-0.4) 12/19/16 05:02 Basophils # (Manual) 0.2 K/mm3 (0.0-0.1) H 12/19/16 05:02 Metamyelocytes # 0.0 K/mm3 12/19/16 05:02 Myelocytes # 0.0 K/mm3 12/19/16 05:02 Promyelocytes # 0.0 K/mm3 12/19/16 05:02 Blast Cells # 0.0 K/mm3 12/19/16 05:02 Pathologist Review 09/13/16 04:00 WBC Morphology Not Reportable 12/19/16 05:02 Hypersegmented Neuts Not Reportable 12/19/16 05:02 Hyposegmented Neuts Not Reportable 12/19/16 05:02 Hypogranular Neuts Not Reportable 12/19/16 05:02 Smudge Cells Not Reportable 12/19/16 05:02 Toxic Granulation Not Reportable 12/19/16 05:02 Toxic Vacuolation Not Reportable 12/19/16 05:02 Dohle Bodies Not Reportable 12/19/16 05:02 Pelger-Huet Anomaly Not Reportable 12/19/16 05:02 Jasmina Rods Not Reportable 12/19/16 05:02 Platelet Estimate Consistent w auto 12/19/16 05:02 Clumped Platelets Not Reportable 12/19/16 05:02 Plt Clumps, EDTA Not Reportable 12/19/16 05:02 Large Platelets Not Reportable 12/19/16 05:02 Giant Platelets Not Reportable 12/19/16 05:02 Platelet Satelliting Not Reportable 12/19/16 05:02 Plt Morphology Comment Not Reportable 12/19/16 05:02 RBC Morphology Not Reportable 12/19/16 05:02 Dimorphic RBCs Not Reportable 12/19/16 05:02 Polychromasia Not Reportable 12/19/16 05:02 Hypochromasia Not Reportable 12/19/16 05:02 Poikilocytosis Not Reportable 12/19/16 05:02 Anisocytosis Not Reportable 12/19/16 05:02 Microcytosis Not Reportable 12/19/16 05:02 Macrocytosis Not Reportable 12/19/16 05:02 Spherocytes Not Reportable 12/19/16 05:02 Pappenheimer Bodies Not Reportable 12/19/16 05:02 Sickle Cells Not Reportable 12/19/16 05:02 Target Cells Few 12/19/16 05:02 Tear Drop Cells Not Reportable 12/19/16 05:02 Ovalocytes Not Reportable 12/19/16 05:02 Stomatocytes Rare 12/03/16 04:00 Helmet Cells Not Reportable 12/19/16 05:02 [place] Bodies Not Reportable 12/19/16 05:02 [place] Rings Not Reportable 12/19/16 05:02 Lebo Cells Not Reportable 12/19/16 05:02 Bite Cells Not Reportable 12/19/16 05:02 Crenated Cell Not Reportable 12/19/16 05:02 Elliptocytes Not Reportable 12/19/16 05:02 Acanthocytes (Spur) Not Reportable 12/19/16 05:02 Rouleaux Not Reportable 12/19/16 05:02 Hemoglobin C Crystals Not Reportable 12/19/16 05:02 Schistocytes Not Reportable 12/19/16 05:02 Malaria parasites Not Reportable 12/19/16 05:02 ESR > 140.0 mm/Hr (0-20) 09/08/16 11:48 Jun Bodies Not Reportable 12/19/16 05:02 Hem Pathologist Commnt No 12/19/16 05:02 PT 16.1 Sec. (12.2-14.9) H 12/28/16 08:30 INR 1.23 (0.87-1.13) H 12/28/16 08:30 APTT 33.0 Sec. (24.2-36.6) 10/09/16 03:45 Thrombin Time 16.8 Sec. (15.1-19.6) 09/03/16 00:10 Fibrinogen 750 mg/dl (211-480) H 09/08/16 11:48 Lupus Anticoagulant see below 09/12/16 09:59 LA PTT Baseline See scanned report 09/12/16 09:59 dRVVT Confirm Interp Positive (Negative) H 09/12/16 09:59 dRVVT Screen 50:50 See scanned report 09/12/16 09:59 dRVVT Mix Interpret See scanned report 09/12/16 09:59 Protein C Antigen 122 % (70-140) 09/08/16 15:35 Free Protein S 97 % normal (50-147) 09/08/16 15:35 Total Protein S 109 % (70-140) 09/08/16 15:35 Antithrombin III Ag 100 % (80-120) 09/08/16 15:35 Heparin Anti-Xa, Unfract Negative (Negative) 09/29/16 13:35 Factor V Activity 182 % (65-150) H 09/08/16 15:35 POC ABG pH 7.503 (7.35-7.45) H 12/19/16 09:36 ABG pH 7.450 pH Units (7.350-7.450) 12/05/16 Unknown POC ABG pCO2 30.1 (35-45) L 12/19/16 09:36 ABG pCO2 29.6 mm Hg 12/05/16 Unknown POC ABG pO2 85 (80-105) 12/19/16 09:36 ABG pO2 75.2 mm Hg (80.0-90.0) L 12/05/16 Unknown POC ABG HCO3 23.6 12/19/16 09:36 ABG HCO3 20.1 mmol/L (20.0-26.0) 12/05/16 Unknown POC ABG Total CO2 25 12/19/16 09:36 POC ABG O2 Sat 97 12/19/16 09:36 ABG O2 Saturation 96.8 % (95.0-99.0) 12/05/16 Unknown ABG O2 Content 9.9 (0.0-44) 12/05/16 Unknown POC ABG Base Excess 1 12/19/16 09:36 ABG Base Excess -3.4 mmol/L (-2.0-3.0) L 12/05/16 Unknown ABG Hemoglobin 7.4 gm/dl (12.0-16.0) L 12/05/16 Unknown ABG Carboxyhemoglobin 1.8 % (0.0-5.0) 12/05/16 Unknown ABG Methemoglobin 0.6 % (0.0-1.5) 12/05/16 Unknown Oxyhemoglobin 94.5 % (95.0-99.0) L 12/05/16 Unknown FiO2 28 % 12/19/16 09:36 Sodium 142 mmol/L (137-145) 12/29/16 05:15 Potassium 3.7 mmol/L (3.6-5.0) 12/29/16 05:15 Chloride 100.8 mmol/L (98-107) 12/29/16 05:15 Carbon Dioxide 23 mmol/L (22-30) 12/29/16 05:15 Anion Gap 22 mmol/L 12/29/16 05:15 BUN 74 mg/dL (7-17) H 12/29/16 05:15 Creatinine 1.6 mg/dL (0.7-1.2) H 12/29/16 05:15 Estimated GFR 42 ml/min 12/29/16 05:15 BUN/Creatinine Ratio 46 % 12/29/16 05:15 Glucose 111 mg/dL (65-100) H 12/29/16 05:15 POC Glucose 133 (70-105) H 12/29/16 11:43 Osmolality 351 Mosm/kg 09/16/16 11:47 Lactic Acid 4.50 mmol/L (0.7-2.0) H* 09/28/16 07:25 Calcium 8.9 mg/dL (8.4-10.2) 12/29/16 05:15 Phosphorus 3.20 mg/dL (2.5-4.5) D 12/28/16 04:00 Magnesium 1.80 mg/dL (1.7-2.3) 12/28/16 04:00 Total Bilirubin 0.90 mg/dL (0.1-1.2) 12/18/16 05:00 Direct Bilirubin 0.3 mg/dL (0-0.2) H 10/10/16 05:00 Indirect Bilirubin 0.1 mg/dL 10/10/16 05:00 AST 34 units/L (5-40) 12/18/16 05:00 ALT 42 units/L (7-56) 12/18/16 05:00 Alkaline Phosphatase 257 units/L (35-129) H 12/18/16 05:00 Ammonia 27.0 umol/L (25-60) 09/07/16 08:37 Lactate Dehydrogenase 196 units/L (91-180) H 11/11/16 06:59 Total Creatine Kinase 121 units/L (30-135) 09/29/16 20:12 CK-MB (CK-2) < 1.0 ng/mL (0.0-4.0) 09/29/16 20:12 CK-MB (CK-2) Rel Index 0.8 (0-4) 09/29/16 20:12 Troponin T 0.204 ng/mL (0.00-0.029) H* 09/29/16 20:12 C-Reactive Protein 19.30 mg/dL (0.00-1.30) H 12/05/16 05:00 Total Protein 5.9 g/dL (6.3-8.2) L 12/18/16 05:00 Albumin 1.8 g/dL (3.9-5) L 12/18/16 05:00 Albumin/Globulin Ratio 0.4 % 12/18/16 05:00 Prealbumin 0.110 g/L (0.200-0.400) L 12/29/16 05:15 Triglycerides 137 mg/dL (2-149) 09/29/16 20:12 Cholesterol 31 mg/dL (50-199) L 09/29/16 20:12 LDL Cholesterol Direct 4 mg/dL (50-130) L 09/29/16 20:12 HDL Cholesterol 3 mg/dL (40-59) L 09/29/16 20:12 Cholesterol/HDL Ratio 10.33 % 09/29/16 20:12 Angiotensin Convert Enz See scanned report 09/08/16 11:48 Renin 0.99 ng/mL/h (0.25-5.82) 10/07/16 10:56 Aldosterone <1 ng/dL () 10/07/16 10:56 Aldosterone/Renin Dir see below 10/07/16 10:56 Serotonin Release Assay See scanned report 09/29/16 13:35 TSH 1.010 mlU/mL (0.270-4.200) 09/07/16 08:37 HCG, Qual Negative (Negative) 09/03/16 00:10 Urine Color Yellow (Yellow) 11/05/16 13:09 Urine Turbidity Clear (Clear) 11/05/16 13:09 Urine pH 9.0 (5.0-7.0) H 11/05/16 13:09 Ur Specific [place] 1.011 (1.003-1.030) 11/05/16 13:09 Urine Protein 100 mg/dl mg/dL (Negative) 11/05/16 13:09 Urine Glucose (UA) Neg mg/dL (Negative) 11/05/16 13:09 Urine Ketones Neg mg/dL (Negative) 11/05/16 13:09 Urine Blood Neg (Negative) 11/05/16 13:09 Urine Nitrite Neg (Negative) 11/05/16 13:09 Urine Bilirubin Neg (Negative) 11/05/16 13:09 Urine Urobilinogen < 2.0 mg/dL (<2.0) 11/05/16 13:09 Ur Leukocyte Esterase Neg (Negative) 11/05/16 13:09 Urine WBC (Auto) 4.0 /HPF (0.0-6.0) 11/05/16 13:09 Urine RBC (Auto) 1.0 /HPF (0.0-6.0) 11/05/16 13:09 U Epithel Cells (Auto) 1.0 /HPF (0-13.0) 10/07/16 18:30 Urine Bacteria (Auto) 4+ /HPF (Negative) 11/05/16 13:09 Urine WBC Clumps 2+ /HPF 09/07/16 02:47 Hyaline Casts 4 /LPF 09/07/16 02:47 Urine Mucus Few /HPF 10/07/16 18:30 Urine Yeast (Budding) 3+ /HPF 10/07/16 18:30 Urine Eosinophils None seen (None Seen) 09/07/16 16:00 Urine Total Volume 950 11/12/16 10:18 Urine Creatinine 19.7 mg/dL (0.1-20.0) 11/12/16 10:18 Height (in) 65.0 inches 11/12/16 10:18 Weight (lb) 181.0 lbs 11/12/16 10:18 Creatinine Clearance 5 11/12/16 10:18 Urine Sodium 36 mEq/L 09/16/16 19:19 Urine Total Protein 16 mg/dL (5-11.8) H 09/16/16 19:19 Fluid Total Protein < 3.0 (15.0-45.0) L 11/10/16 14:20 Fluid LDH 123 11/10/16 14:20 Vancomycin Trough 2.3 ug/mL (5.0-20.0) L 09/21/16 13:00 Random Vancomycin 16.5 ug/mL (0-40.0) 11/28/16 09:45 Urine Opiates Screen Presumptive negative 09/03/16 15:11 Urine Methadone Screen Presumptive positive 09/03/16 15:11 Ur Barbiturates Screen Presumptive positive 09/03/16 15:11 Ur Phencyclidine Scrn Presumptive negative 09/03/16 15:11 Ur Amphetamines Screen Presumptive negative 09/03/16 15:11 U Benzodiazepines Scrn Presumptive negative 09/03/16 15:11 Urine Cocaine Screen Presumptive negative 09/03/16 15:11 U Marijuana (THC) Screen Presumptive positive 09/03/16 15:11 Drugs of Abuse Note Disclamer 09/03/16 15:11 Rheumatoid Factor 24 IU/ml (0-13) H 09/08/16 11:48 SAHIL Screen Negative (Negative) 09/07/16 09:20 Proteinase 3 (PR3) Ab <1.0 AI (<1.0) 09/07/16 09:20 Myeloperoxidase Ab <1.0 AI (<1.0) 09/07/16 09:20 Sjogren's Antibody <1.0 AI (<1.0) 09/08/16 15:35 Scl-70 Scleroderma Ab <1.0 AI (<1.0) 09/08/16 15:35 Centromere B Antibody <1.0 AI (<1.0) 09/08/16 12:02 Heparin-induced Plt Ab Negative (Negative) 09/29/16 13:35 UF Heparin High Dose 11 % Release 09/29/16 13:35 SUDHIR UFH Low Dose 0.1 6 % Release 09/29/16 13:35 SUDHIR UFH Low Dose 0.5 8 % Release 09/29/16 13:35 Cardiolipid IgG Ab <14 GPL (<=14) 09/12/16 09:59 Cardiolipid IgA Ab <11 APL (<=11) 09/12/16 09:59 Cardiolipid IgM Ab <12 MPL (<=12) 09/12/16 09:59 Complement C3 148 mg/dL (90-180) 09/07/16 09:20 Complement C4 58 mg/dL (16-47) H 09/07/16 09:20 RPR Nonreactive (Nonreactive) 09/08/16 11:48 Hepatitis A IgM Ab Non-reactive (NonReactive) 09/24/16 14:40 Hep Bs Antigen Non-reactive (Negative) 09/24/16 14:40 Hep B Core IgM Ab Non-reactive (NonReactive) 09/24/16 14:40 Hepatitis C Antibody Non-reactive (NonReactive) 09/24/16 14:40 HIV 1&2 Antibody Rapid Non react (Non React) 09/08/16 11:48 HIV P24 Antigen Non react (Non React) 09/08/16 11:48 Miscellaneous Test Flexitest 1 H 11/05/16 13:25 Blood Type A POSITIVE 12/29/16 14:00 Antibody Screen Negative 12/29/16 14:00 DELORIS Antibody Screen Negative 11/24/16 11:20 Crossmatch See Detail 12/29/16 14:00
[2016-12-29] MEDS ORDERED: TPN ADULT IV SCH (20:00)
[2016-12-29 23:43] LABS: Hematocrit 22.3 % (30.3-42.9); Hemoglobin 7.3 gm/dl (10.1-14.3)
[2016-12-30] MEDS: HumuLIN R SUB-Q SCH ×2 (00:31→05:45)
[2016-12-30] MEDS: LOPRESSOR PO SCH ×4 (00:54→23:50)
[2016-12-30] MEDS: REGLAN IV SCH ×5 (00:55→23:50)
[2016-12-30] MEDS: DUONEB *Not for PRN Use IH SCH ×5 (01:19→20:12)
[2016-12-30] MEDS: DILAUDID IV PRN ×3 (03:26→23:40)
[2016-12-30 04:31] LABS: Basophils # (Auto) 0.1 K/mm3 (0.0-0.1); Basophils % (Auto) 0.7 % (0.0-1.8); Eosinophils # (Auto) 0.1 K/mm3 (0.0-0.4); Eosinophils % (Auto) 0.5 % (0.0-4.3); Lymphocytes # (Auto) 2.5 K/mm3 (1.2-5.4); Lymphocytes % (Auto) 15.9 % (13.4-35.0); Mean Corpuscular HGB Conc 33 % (30-34); Mean Corpuscular Hemoglobin 29 pg (28-32); Mean Corpuscular Volume 86 fl (79-97); Monocytes % (Auto) 6.7 % (0.0-7.3); Platelet Count 319 K/mm3 (140-440); Red Blood Count 2.81 M/mm3 (3.65-5.03); Red Cell Distribution Width 16.9 % (13.2-15.2)
[2016-12-30 04:51] LABS: Calcium 9.3 mg/dL (8.4-10.2)
[2016-12-30] MEDS: APRESOLINE PO SCH ×3 (05:44→21:48)
--- NOTE | 2016-12-30 10:42 | Progress Note ---
Assessment and Plan Assessment * Oliguric acute kidney injury secondary to ATN on CKD - baseline SCr 1.7mg/dL --24h urine CrCl 5ml/min Sep 24 * Acute CVA - left MCA with midline shift * Atrial fibrillation w/ RVR * Enteric fistula * Acute hypoxic respiratory failure * s/p Cardiac arrest * Hx of GI bleed * Left renal artery stenosis * Anemia * Hx of hypertension * s/p Candidemia Plan: * HD has been on hold - SCr low due to loss of muscle mass. Increasing BUN noted * Will resume HD MWF * UF as tolerated * Adjust K bath with dialysis * Dose medications for renal function * Avoid potential nephrotoxins * Rate control per cardiology * Vent management per pulm/CCM * Pressors prn for MAP>65 Subjective Date of service: 12/30/16 Principal diagnosis: Acute resp failure on MVS; S/P Acute CVA; Acute Encephalopathy; JUANITA Interval history: No acute events. Objective - Vital Signs Vital signs: Vital Signs - 12hr 12/29/16 12/29/16 12/29/16 22:45 22:59 23:00 Temperature Pulse Rate 115 H 113 H 114 H Pulse Rate [ Anterior Bilateral Throughout] Pulse Rate [ From Monitor] Respiratory 27 H 34 H Rate Respiratory Rate [Anterior Bilateral Throughout] Blood Pressure 121/74 121/74 114/65 O2 Sat by Pulse 97 89 Oximetry O2 Sat by Pulse Oximetry [ Assessment] 12/29/16 12/29/16 12/29/16 23:15 23:30 23:45 Temperature Pulse Rate 110 H 110 H 111 H Pulse Rate [ Anterior Bilateral Throughout] Pulse Rate [ From Monitor] Respiratory 25 H 25 H 25 H Rate Respiratory Rate [Anterior Bilateral Throughout] Blood Pressure 116/68 120/71 124/78 O2 Sat by Pulse 99 100 100 Oximetry O2 Sat by Pulse Oximetry [ Assessment] 12/30/16 12/30/16 12/30/16 00:00 00:15 00:30 Temperature 98.8 F Pulse Rate 110 H 111 H 113 H Pulse Rate [ Anterior Bilateral Throughout] Pulse Rate [ 95 H From Monitor] Respiratory 27 H 26 H 24 Rate Respiratory Rate [Anterior Bilateral Throughout] Blood Pressure 115/74 137/83 127/77 O2 Sat by Pulse 100 100 100 Oximetry O2 Sat by Pulse Oximetry [ Assessment] 12/30/16 12/30/16 12/30/16 00:40 00:45 00:46 Temperature Pulse Rate 115 H Pulse Rate [ Anterior Bilateral Throughout] Pulse Rate [ From Monitor] Respiratory 26 H Rate Respiratory Rate [Anterior Bilateral Throughout] Blood Pressure 133/82 O2 Sat by Pulse 100 100 Oximetry O2 Sat by Pulse 100 Oximetry [ Assessment] 12/30/16 12/30/16 12/30/16 00:47 00:54 01:00 Temperature Pulse Rate 112 H 115 H 112 H Pulse Rate [ Anterior Bilateral Throughout] Pulse Rate [ From Monitor] Respiratory 21 Rate Respiratory Rate [Anterior Bilateral Throughout] Blood Pressure 133/82 133/82 124/79 O2 Sat by Pulse 100 100 Oximetry O2 Sat by Pulse Oximetry [ Assessment] 12/30/16 12/30/16 12/30/16 01:15 01:19 01:30 Temperature Pulse Rate 101 H 96 H Pulse Rate [ 99 H Anterior Bilateral Throughout] Pulse Rate [ From Monitor] Respiratory 19 25 H Rate Respiratory 23 Rate [Anterior Bilateral Throughout] Blood Pressure 133/86 127/79 O2 Sat by Pulse 100 100 Oximetry O2 Sat by Pulse Oximetry [ Assessment] 12/30/16 12/30/16 12/30/16 01:45 02:00 02:15 Temperature Pulse Rate 96 H 96 H 94 H Pulse Rate [ Anterior Bilateral Throughout] Pulse Rate [ From Monitor] Respiratory 10 L 22 24 Rate Respiratory Rate [Anterior Bilateral Throughout] Blood Pressure 131/83 126/81 133/84 O2 Sat by Pulse 100 100 99 Oximetry O2 Sat by Pulse Oximetry [ Assessment] 12/30/16 12/30/16 12/30/16 02:30 02:45 03:00 Temperature Pulse Rate 96 H 95 H 96 H Pulse Rate [ Anterior Bilateral Throughout] Pulse Rate [ From Monitor] Respiratory 26 H 24 23 Rate Respiratory Rate [Anterior Bilateral Throughout] Blood Pressure 125/81 129/81 129/79 O2 Sat by Pulse 96 97 100 Oximetry O2 Sat by Pulse Oximetry [ Assessment] 12/30/16 12/30/16 12/30/16 03:16 03:30 03:45 Temperature Pulse Rate 106 H 103 H 94 H Pulse Rate [ Anterior Bilateral Throughout] Pulse Rate [ From Monitor] Respiratory 22 23 20 Rate Respiratory Rate [Anterior Bilateral Throughout] Blood Pressure 129/79 138/78 104/59 O2 Sat by Pulse 100 99 99 Oximetry O2 Sat by Pulse Oximetry [ Assessment] 12/30/16 12/30/16 12/30/16 04:00 04:15 04:30 Temperature 98.1 F Pulse Rate 95 H 94 H 94 H Pulse Rate [ Anterior Bilateral Throughout] Pulse Rate [ 95 H From Monitor] Respiratory 23 23 25 H Rate Respiratory Rate [Anterior Bilateral Throughout] Blood Pressure 108/64 108/60 113/65 O2 Sat by Pulse 100 98 97 Oximetry O2 Sat by Pulse Oximetry [ Assessment] 12/30/16 12/30/16 12/30/16 04:45 04:50 05:00 Temperature Pulse Rate 94 H 96 H 94 H Pulse Rate [ Anterior Bilateral Throughout] Pulse Rate [ From Monitor] Respiratory 24 23 Rate Respiratory Rate [Anterior Bilateral Throughout] Blood Pressure 107/64 114/65 114/65 O2 Sat by Pulse 98 98 97 Oximetry O2 Sat by Pulse Oximetry [ Assessment] 12/30/16 12/30/16 12/30/16 05:15 05:30 05:44 Temperature Pulse Rate 95 H 95 H 98 H Pulse Rate [ Anterior Bilateral Throughout] Pulse Rate [ From Monitor] Respiratory 25 H 25 H Rate Respiratory Rate [Anterior Bilateral Throughout] Blood Pressure 119/66 118/74 118/74 O2 Sat by Pulse 97 97 Oximetry O2 Sat by Pulse Oximetry [ Assessment] 12/30/16 12/30/16 12/30/16 05:45 06:00 06:15 Temperature Pulse Rate 96 H 97 H 90 Pulse Rate [ Anterior Bilateral Throughout] Pulse Rate [ From Monitor] Respiratory 25 H 15 16 Rate Respiratory Rate [Anterior Bilateral Throughout] Blood Pressure 124/74 132/83 118/74 O2 Sat by Pulse 100 98 99 Oximetry O2 Sat by Pulse Oximetry [ Assessment] 12/30/16 12/30/16 12/30/16 06:30 06:41 06:45 Temperature Pulse Rate 89 87 Pulse Rate [ 87 Anterior Bilateral Throughout] Pulse Rate [ From Monitor] Respiratory 26 H Rate Respiratory 26 H Rate [Anterior Bilateral Throughout] Blood Pressure 121/74 121/74 O2 Sat by Pulse 99 99 Oximetry O2 Sat by Pulse Oximetry [ Assessment] 12/30/16 12/30/16 06:56 06:57 Temperature Pulse Rate Pulse Rate [ 90 Anterior Bilateral Throughout] Pulse Rate [ From Monitor] Respiratory Rate Respiratory 26 H Rate [Anterior Bilateral Throughout] Blood Pressure O2 Sat by Pulse Oximetry O2 Sat by Pulse 100 Oximetry [ Assessment] - General Appearance General appearance: chronically ill EENT: ATNC Respiratory: Present: Other (coarse BS) Cardiology: regular, S1S2 Gastrointestinal: hypoactive bowel sounds, distended Integumentary: warm and dry Musculoskeletal: other (+ edema) - Lab 12/30/16 04:20 12/30/16 04:20 Most recent lab results ABG pH 7.450 pH Units (7.350-7.450) 12/05/16 Unknown ABG pCO2 29.6 mm Hg 12/05/16 Unknown ABG pO2 75.2 mm Hg (80.0-90.0) L 12/05/16 Unknown ABG HCO3 20.1 mmol/L (20.0-26.0) 12/05/16 Unknown ABG O2 Saturation 96.8 % (95.0-99.0) 12/05/16 Unknown Calcium 9.3 mg/dL (8.4-10.2) 12/30/16 04:20 Phosphorus 3.80 mg/dL (2.5-4.5) 12/30/16 04:20 Magnesium 2.20 mg/dL (1.7-2.3) 12/30/16 04:20 Urine Creatinine 19.7 mg/dL (0.1-20.0) 11/12/16 10:18 Urine Sodium 36 mEq/L 09/16/16 19:19 Urine Total Protein 16 mg/dL (5-11.8) H 09/16/16 19:19
[2016-12-30] MEDS: HEPARIN SUB-Q SCH ×2 (10:45→21:49)
[2016-12-30] MEDS: CORDARONE PO SCH ×2 (10:45→21:49)
[2016-12-30] MEDS: PROTONIX FEEDTUBE SCH (10:45)
[2016-12-30] MEDS: NORVASC PO SCH (10:45)
[2016-12-30] MEDS: ROBINUL PO SCH ×2 (10:45→21:48)
--- NOTE | 2016-12-30 12:03 | Progress Note ---
Assessment and Plan 46-year-old woman with a history of hypertension, diabetes, asthma, hyperlipidemia, chronic kidney disease and anxiety , who was brought in by family because, she couldn't get her words out, her face was also twisted, she was admitted for acute CVA and accelerated hypertension, she had a hx of poor adherence with her medications, and uncontrolled htn. Patient's SBP on admission was noted be greater than 260. TPA was started but this was discontinued after 5 minutes because her blood pressure became uncontrolled. The TPA was not initiated again because the patient was outside the TPA window. Acute hypoxic respiratory failure requiring MV >96hrs Status post tracheostomy, back on full mechanical ventilatory support s/p PEA arrest with ROSC. VAP bundle addressed. Continue with daily SBTs as tolerated VTE prophylaxis Stress ulcer prophylaxis Aspiration precautions HOB>40 Lung protective strategies -Severe Sepsis with septic shock, recurrent. Patient with multiple episodes of sepsis. Initial episode due to presumed aspiration pneumonia and septic episode on 09/23 from candidemia then a third episode from peritonitis from gastric perforation from dislodged PEG , there was an abscess in the abdomen present at that time that was draining pus. +/-UTI. Leukocytosis CT abdomen done post code to evaluate for worsening leukocytosis.... probable fistula sp R thoracentesis on 11/14, 240cc of serous fluid removed, cx of fluid was negative Intra abdominal fistula ID following Surgical wound infection/gram-negative sepsis/candidemia/peritonitis -TPN for nutritional support -Promotility agents today, monitor response. No further episodes of vomiting this morning -continue wound care to ostomy sites -Bowel regimen JUANITA, now ESRD Likely due to vasomotor nephropathy and ATN given sepsis Nephrology input appreciated Acute CVA with infarct. sp TPA Continue neuro checks. Neurology input appreciated, CT shows continued evolution of left MCA infarct with slight mass effect and edema, and there is no hemorrhage - PRINCE showed hyperdynamic with ef of 75%, neither clot nor septal defect seen - MRA Brain shows near complete occlusion of M2 and M3 of the left MCA - Repeat CT scan done on 09/11, shows stable findings - carotid doppler negative - Echo shows preserved systolic function but does show some left ventricular diastolic dysfunction - continue asa and statin for secondary ppx Paroxysmal atrial fibrillation. On Metoprolol Persistent vegetative state This patient's needs placement at either hospice or SNF -She was denied for LTACH Nosocomial acquired aspiration pneumonia/sepsis/UTI She had completed a course of antibiotics. Being monitored off antibiotics Asthma/COPD exacerbation s/p trach Continue bronchodilators Acute Toxic Metabolic encephalopathy( improved). Multitifactorial, mostly secondary to evolution of CVA Hypertensive Emergency-stable Now on Metoprolol, Cozaar,Hydralazine, Clonidine patch. Bilateral pleural effusion, s/p right thoracentesis Paroxysmal atrial fibrillation with rapid ventricular rate, failed cardioversion Continue current medications, Not a candidate for anticoagulation secondary to anemia, thrombocytopenia, and massive CVA Hypokalemia/Hypomagnesemia/hypophosphatemia. Replete electrolytes as needed. Diabetes type 2. Continue sliding-scale regular insulin and Accu-Cheks. Hyperlipidemia. Continue statin Nutrition continue tube feeds Anemia requiring multiple transfusions/acute blood loss Has received total 13 units of PRBC this admission. Will continue to transfuse to keep Hemoglobin above 7 Disposition. Very poor prognosis. - Patient Problems (1) Acute respiratory failure with hypoxia Current Visit: Yes Status: Acute (2) Acute blood loss anemia Current Visit: Yes Status: Resolved (3) Acute CVA (cerebrovascular accident) Current Visit: Yes Status: Acute (4) Chronic renal insufficiency Current Visit: Yes Status: Acute Qualifiers: Chronic kidney disease stage: C (5) Uncontrolled hypertension Current Visit: Yes Status: Acute (6) Leukocytosis (leucocytosis) Current Visit: Yes Status: Acute Qualifiers: Leukocytosis type: leukemoid reaction Qualified Code(s): D72.823 - Leukemoid reaction (7) Dislodged gastrostomy tube Current Visit: Yes Status: Acute (8) Fungemia Current Visit: Yes Status: Resolved Subjective Date of service: 12/30/16 Principal diagnosis: Acute resp failure on MVS; S/P Acute CVA; Acute Encephalopathy; JUANITA Interval history: Patient is seen today for: Acute resp failure on MVS; S/P Acute CVA; Acute Encephalopathy; JUANITA Seen and examined at bedside; 24hour events reviewed; nursing and respiratory care staff consulted; no adverse overnight events reported to me; remains on MVS ; s/p sacral wound debridement yesterday; grimacing intermittently (? pain) but AMS is persistent; still with NGT to LIS and significant drainage. Seen and examined. Vitals, labs, medications, chart reviewed. On mechanical ventilatory support, continues to fail weaning trials Discussed in interdisciplinary rounds Objective - Exam Narrative Exam: Patient is on mechanical ventilation, on trach. Vital signs as documented. Head exam is unremarkable. No scleral icterus . Neck is without jugular venous distension, Lungs are clear to auscultation. Cardiac exam reveals regular rate and Rhythm. First and second heart sounds normal. No murmurs, rubs or gallops. Abdominal exam reveals abscess draining from the PEG site, and multiple fistulas around the stomach. Extremities are non edematous and both femoral and pedal pulses are normal. Sacral decubitus ulcer. BLOCK PLACER: awake, alert, not obeying commands Vital Signs - 12hr 12/30/16 12/30/16 12/30/16 00:15 00:30 00:40 Temperature Pulse Rate 111 H 113 H Pulse Rate [ Anterior Bilateral Throughout] Pulse Rate [ From Monitor] Respiratory 26 H 24 Rate Respiratory Rate [Anterior Bilateral Throughout] Blood Pressure 137/83 127/77 O2 Sat by Pulse 100 100 Oximetry O2 Sat by Pulse 100 Oximetry [ Assessment] 12/30/16 12/30/16 12/30/16 00:45 00:46 00:47 Temperature Pulse Rate 115 H 112 H Pulse Rate [ Anterior Bilateral Throughout] Pulse Rate [ From Monitor] Respiratory 26 H Rate Respiratory Rate [Anterior Bilateral Throughout] Blood Pressure 133/82 133/82 O2 Sat by Pulse 100 100 100 Oximetry O2 Sat by Pulse Oximetry [ Assessment] 12/30/16 12/30/16 12/30/16 00:54 01:00 01:15 Temperature Pulse Rate 115 H 112 H 101 H Pulse Rate [ Anterior Bilateral Throughout] Pulse Rate [ From Monitor] Respiratory 21 19 Rate Respiratory Rate [Anterior Bilateral Throughout] Blood Pressure 133/82 124/79 133/86 O2 Sat by Pulse 100 100 Oximetry O2 Sat by Pulse Oximetry [ Assessment] 12/30/16 12/30/16 12/30/16 01:19 01:30 01:45 Temperature Pulse Rate 96 H 96 H Pulse Rate [ 99 H Anterior Bilateral Throughout] Pulse Rate [ From Monitor] Respiratory 25 H 10 L Rate Respiratory 23 Rate [Anterior Bilateral Throughout] Blood Pressure 127/79 131/83 O2 Sat by Pulse 100 100 Oximetry O2 Sat by Pulse Oximetry [ Assessment] 12/30/16 12/30/16 12/30/16 02:00 02:15 02:30 Temperature Pulse Rate 96 H 94 H 96 H Pulse Rate [ Anterior Bilateral Throughout] Pulse Rate [ From Monitor] Respiratory 22 24 26 H Rate Respiratory Rate [Anterior Bilateral Throughout] Blood Pressure 126/81 133/84 125/81 O2 Sat by Pulse 100 99 96 Oximetry O2 Sat by Pulse Oximetry [ Assessment] 12/30/16 12/30/16 12/30/16 02:45 03:00 03:16 Temperature Pulse Rate 95 H 96 H 106 H Pulse Rate [ Anterior Bilateral Throughout] Pulse Rate [ From Monitor] Respiratory 24 23 22 Rate Respiratory Rate [Anterior Bilateral Throughout] Blood Pressure 129/81 129/79 129/79 O2 Sat by Pulse 97 100 100 Oximetry O2 Sat by Pulse Oximetry [ Assessment] 12/30/16 12/30/16 12/30/16 03:30 03:45 04:00 Temperature 98.1 F Pulse Rate 103 H 94 H 95 H Pulse Rate [ Anterior Bilateral Throughout] Pulse Rate [ 95 H From Monitor] Respiratory 23 20 23 Rate Respiratory Rate [Anterior Bilateral Throughout] Blood Pressure 138/78 104/59 108/64 O2 Sat by Pulse 99 99 100 Oximetry O2 Sat by Pulse Oximetry [ Assessment] 12/30/16 12/30/16 12/30/16 04:15 04:30 04:45 Temperature Pulse Rate 94 H 94 H 94 H Pulse Rate [ Anterior Bilateral Throughout] Pulse Rate [ From Monitor] Respiratory 23 25 H 24 Rate Respiratory Rate [Anterior Bilateral Throughout] Blood Pressure 108/60 113/65 107/64 O2 Sat by Pulse 98 97 98 Oximetry O2 Sat by Pulse Oximetry [ Assessment] 12/30/16 12/30/16 12/30/16 04:50 05:00 05:15 Temperature Pulse Rate 96 H 94 H 95 H Pulse Rate [ Anterior Bilateral Throughout] Pulse Rate [ From Monitor] Respiratory 23 25 H Rate Respiratory Rate [Anterior Bilateral Throughout] Blood Pressure 114/65 114/65 119/66 O2 Sat by Pulse 98 97 97 Oximetry O2 Sat by Pulse Oximetry [ Assessment] 12/30/16 12/30/16 12/30/16 05:30 05:44 05:45 Temperature Pulse Rate 95 H 98 H 96 H Pulse Rate [ Anterior Bilateral Throughout] Pulse Rate [ From Monitor] Respiratory 25 H 25 H Rate Respiratory Rate [Anterior Bilateral Throughout] Blood Pressure 118/74 118/74 124/74 O2 Sat by Pulse 97 100 Oximetry O2 Sat by Pulse Oximetry [ Assessment] 12/30/16 12/30/16 12/30/16 06:00 06:15 06:30 Temperature Pulse Rate 97 H 90 89 Pulse Rate [ Anterior Bilateral Throughout] Pulse Rate [ From Monitor] Respiratory 15 16 26 H Rate Respiratory Rate [Anterior Bilateral Throughout] Blood Pressure 132/83 118/74 121/74 O2 Sat by Pulse 98 99 99 Oximetry O2 Sat by Pulse Oximetry [ Assessment] 12/30/16 12/30/16 12/30/16 06:41 06:45 06:56 Temperature Pulse Rate 87 87 Pulse Rate [ 87 90 Anterior Bilateral Throughout] Pulse Rate [ From Monitor] Respiratory 21 Rate Respiratory 26 H 26 H Rate [Anterior Bilateral Throughout] Blood Pressure 121/74 118/68 O2 Sat by Pulse 99 99 Oximetry O2 Sat by Pulse Oximetry [ Assessment] 12/30/16 12/30/16 12/30/16 06:57 07:00 07:15 Temperature Pulse Rate 88 87 Pulse Rate [ Anterior Bilateral Throughout] Pulse Rate [ From Monitor] Respiratory 23 22 Rate Respiratory Rate [Anterior Bilateral Throughout] Blood Pressure 128/80 128/76 O2 Sat by Pulse 100 100 Oximetry O2 Sat by Pulse 100 Oximetry [ Assessment] 12/30/16 12/30/16 12/30/16 07:30 07:45 08:00 Temperature 97.4 F L Pulse Rate 87 87 85 Pulse Rate [ Anterior Bilateral Throughout] Pulse Rate [ From Monitor] Respiratory 21 21 22 Rate Respiratory Rate [Anterior Bilateral Throughout] Blood Pressure 119/75 123/74 127/75 O2 Sat by Pulse 100 100 100 Oximetry O2 Sat by Pulse Oximetry [ Assessment] 12/30/16 12/30/16 12/30/16 08:15 08:30 08:45 Temperature Pulse Rate 86 87 87 Pulse Rate [ Anterior Bilateral Throughout] Pulse Rate [ From Monitor] Respiratory 21 20 21 Rate Respiratory Rate [Anterior Bilateral Throughout] Blood Pressure 127/75 132/80 132/82 O2 Sat by Pulse 100 100 100 Oximetry O2 Sat by Pulse Oximetry [ Assessment] 12/30/16 12/30/16 12/30/16 09:00 09:15 09:30 Temperature Pulse Rate 88 89 89 Pulse Rate [ Anterior Bilateral Throughout] Pulse Rate [ From Monitor] Respiratory 23 23 22 Rate Respiratory Rate [Anterior Bilateral Throughout] Blood Pressure 129/78 133/82 131/81 O2 Sat by Pulse 100 100 100 Oximetry O2 Sat by Pulse Oximetry [ Assessment] 12/30/16 12/30/16 12/30/16 09:45 10:00 10:15 Temperature Pulse Rate 90 88 90 Pulse Rate [ Anterior Bilateral Throughout] Pulse Rate [ From Monitor] Respiratory 22 23 20 Rate Respiratory Rate [Anterior Bilateral Throughout] Blood Pressure 133/81 133/78 135/82 O2 Sat by Pulse 100 100 100 Oximetry O2 Sat by Pulse Oximetry [ Assessment] 12/30/16 12/30/16 12/30/16 10:30 10:45 11:00 Temperature Pulse Rate 89 89 91 H Pulse Rate [ Anterior Bilateral Throughout] Pulse Rate [ From Monitor] Respiratory 20 21 22 Rate Respiratory Rate [Anterior Bilateral Throughout] Blood Pressure 140/80 132/77 135/80 O2 Sat by Pulse 100 100 100 Oximetry O2 Sat by Pulse Oximetry [ Assessment] 12/30/16 12/30/16 12/30/16 11:15 11:26 11:30 Temperature Pulse Rate 90 90 92 H Pulse Rate [ Anterior Bilateral Throughout] Pulse Rate [ From Monitor] Respiratory 20 22 Rate Respiratory Rate [Anterior Bilateral Throughout] Blood Pressure 135/75 135/75 134/78 O2 Sat by Pulse 100 100 100 Oximetry O2 Sat by Pulse Oximetry [ Assessment] 12/30/16 11:46 Temperature Pulse Rate 89 Pulse Rate [ Anterior Bilateral Throughout] Pulse Rate [ From Monitor] Respiratory 21 Rate Respiratory Rate [Anterior Bilateral Throughout] Blood Pressure 134/78 O2 Sat by Pulse 100 Oximetry O2 Sat by Pulse Oximetry [ Assessment] Constitutional: appears uncomfortable, other (not tracking) Eyes: non-icteric, other (tracheostomy tube in midline of neck) ENT: oropharynx moist, oropharyngeal exudate pre Neck: supple, no lymphadenopathy, no JVD, other (no thyromegaly) Effort: mildly labored Ascultation: Bilateral: clear, diminished breath sounds (bases), rales, rhonchi (and referred upper airway sounds) Percussion: Bilateral: not dull, dull (bases) Cardiovascular: regular rate and rhythm, other (no rubs / murmurs) Gastrointestinal: hypoactive bowel sounds, soft, non-tender, non-distended, other (RLQ & LUQ stomas with colostomy bags) Integumentary: decubitus ulcer (sacral; stage 4 s/p surgical debridement), other (no rash; no cellulitis; poor turgor) Extremities: no cyanosis, pulses normal, no ischemia or petechiae, edema (1+ bilaterally) Neurologic: pupils equal and round, unable to assess, other (encephalopathic) Psychiatric: other (unable to assess) CBC and BMP: 12/30/16 04:20 12/30/16 04:20 ABG, PT/INR, D-dimer: ABG POC ABG pH 7.503 (7.35-7.45) H 12/19/16 09:36 ABG pH 7.450 pH Units (7.350-7.450) 12/05/16 Unknown POC ABG pCO2 30.1 (35-45) L 12/19/16 09:36 ABG pCO2 29.6 mm Hg 12/05/16 Unknown POC ABG pO2 85 (80-105) 12/19/16 09:36 ABG pO2 75.2 mm Hg (80.0-90.0) L 12/05/16 Unknown POC ABG HCO3 23.6 12/19/16 09:36 POC ABG Total CO2 25 12/19/16 09:36 POC ABG O2 Sat 97 12/19/16 09:36 ABG O2 Saturation 96.8 % (95.0-99.0) 12/05/16 Unknown PT/INR, D-dimer PT 16.1 Sec. (12.2-14.9) H 12/28/16 08:30 INR 1.23 (0.87-1.13) H 12/28/16 08:30 Abnormal lab findings: Abnormal Labs 09/03/16 09/03/16 09/03/16 12:12 15:07 16:20 WBC RBC Hgb Hct MCV MCH MCHC RDW Plt Count Lymph % (Auto) [place] % (Auto) Lymph # [place] # Baso # Seg Neutrophils % Seg Neuts % (Manual) Lymphocytes % (Manual) Monocytes % (Manual) Eosinophils % (Manual) Basophils % (Manual) Nucleated RBC % Seg Neutrophils # Seg Neutrophils # Man Lymphocytes # (Manual) Monocytes # (Manual) Eosinophils # (Manual) Basophils # (Manual) PT INR Fibrinogen dRVVT Confirm Interp Factor V Activity POC ABG pH 7.452 H POC ABG pCO2 POC ABG pO2 ABG pO2 ABG HCO3 ABG Base Excess ABG Hemoglobin Oxyhemoglobin Sodium Potassium Chloride Carbon Dioxide BUN Creatinine Glucose POC Glucose 178 H Lactic Acid Calcium Phosphorus 2.20 L Magnesium 1.60 L Direct Bilirubin AST ALT Alkaline Phosphatase Lactate Dehydrogenase Troponin T C-Reactive Protein Total Protein Albumin Prealbumin Triglycerides Cholesterol LDL Cholesterol Direct HDL Cholesterol Urine pH Urine WBC (Auto) Urine Creatinine Urine Total Protein Fluid Total Protein Vancomycin Trough Rheumatoid Factor Complement C4 Miscellaneous Test Crossmatch 09/03/16 09/03/16 09/03/16 17:57 17:58 23:50 WBC RBC Hgb Hct MCV MCH MCHC RDW Plt Count Lymph % (Auto) [place] % (Auto) Lymph # [place] # Baso # Seg Neutrophils % Seg Neuts % (Manual) Lymphocytes % (Manual) Monocytes % (Manual) Eosinophils % (Manual) Basophils % (Manual) Nucleated RBC % Seg Neutrophils # Seg Neutrophils # Man Lymphocytes # (Manual) Monocytes # (Manual) Eosinophils # (Manual) Basophils # (Manual) PT INR Fibrinogen dRVVT Confirm Interp Factor V Activity POC ABG pH POC ABG pCO2 POC ABG pO2 ABG pO2 ABG HCO3 ABG Base Excess ABG Hemoglobin Oxyhemoglobin Sodium Potassium Chloride Carbon Dioxide BUN Creatinine Glucose POC Glucose 162 H 145 H Lactic Acid Calcium Phosphorus 2.30 L Magnesium Direct Bilirubin AST ALT Alkaline Phosphatase Lactate Dehydrogenase Troponin T C-Reactive Protein Total Protein Albumin Prealbumin Triglycerides Cholesterol LDL Cholesterol Direct HDL Cholesterol Urine pH Urine WBC (Auto) Urine Creatinine Urine Total Protein Fluid Total Protein Vancomycin Trough Rheumatoid Factor Complement C4 Miscellaneous Test Crossmatch 09/04/16 09/04/16 09/04/16 03:31 03:31 05:42 WBC RBC Hgb 9.7 L D Hct MCV 72 L MCH 23 L MCHC RDW 17.5 H Plt Count Lymph % (Auto) 11.1 L [place] % (Auto) Lymph # [place] # Baso # Seg Neutrophils % 84.3 H Seg Neuts % (Manual) Lymphocytes % (Manual) Monocytes % (Manual) Eosinophils % (Manual) Basophils % (Manual) Nucleated RBC % Seg Neutrophils # 8.9 H Seg Neutrophils # Man Lymphocytes # (Manual) Monocytes # (Manual) Eosinophils # (Manual) Basophils # (Manual) PT INR Fibrinogen dRVVT Confirm Interp Factor V Activity POC ABG pH POC ABG pCO2 POC ABG pO2 ABG pO2 ABG HCO3 ABG Base Excess ABG Hemoglobin Oxyhemoglobin Sodium 135 L Potassium 2.9 L* Chloride 97.2 L Carbon Dioxide 19 L BUN Creatinine 1.7 H Glucose 170 H POC Glucose 152 H Lactic Acid Calcium Phosphorus Magnesium Direct Bilirubin AST ALT Alkaline Phosphatase Lactate Dehydrogenase Troponin T C-Reactive Protein Total Protein Albumin Prealbumin Triglycerides 160 H Cholesterol LDL Cholesterol Direct HDL Cholesterol 31 L Urine pH Urine WBC (Auto) Urine Creatinine Urine Total Protein Fluid Total Protein Vancomycin Trough Rheumatoid Factor Complement C4 Miscellaneous Test Crossmatch 09/04/16 09/04/16 09/04/16 11:34 17:46 23:29 WBC RBC Hgb Hct MCV MCH MCHC RDW Plt Count Lymph % (Auto) [place] % (Auto) Lymph # [place] # Baso # Seg Neutrophils % Seg Neuts % (Manual) Lymphocytes % (Manual) Monocytes % (Manual) Eosinophils % (Manual) Basophils % (Manual) Nucleated RBC % Seg Neutrophils # Seg Neutrophils # Man Lymphocytes # (Manual) Monocytes # (Manual) Eosinophils # (Manual) Basophils # (Manual) PT INR Fibrinogen dRVVT Confirm Interp Factor V Activity POC ABG pH POC ABG pCO2 POC ABG pO2 ABG pO2 ABG HCO3 ABG Base Excess ABG Hemoglobin Oxyhemoglobin Sodium Potassium Chloride Carbon Dioxide BUN Creatinine Glucose POC Glucose 165 H 210 H 139 H Lactic Acid Calcium Phosphorus Magnesium Direct Bilirubin AST ALT Alkaline Phosphatase Lactate Dehydrogenase Troponin T C-Reactive Protein Total Protein Albumin Prealbumin Triglycerides Cholesterol LDL Cholesterol Direct HDL Cholesterol Urine pH Urine WBC (Auto) Urine Creatinine Urine Total Protein Fluid Total Protein Vancomycin Trough Rheumatoid Factor Complement C4 Miscellaneous Test Crossmatch 09/05/16 09/05/16 09/05/16 04:05 04:05 05:38 WBC RBC Hgb Hct MCV 76 L D MCH 23 L MCHC RDW 17.8 H Plt Count Lymph % (Auto) [place] % (Auto) Lymph # [place] # Baso # Seg Neutrophils % Seg Neuts % (Manual) Lymphocytes % (Manual) Monocytes % (Manual) Eosinophils % (Manual) Basophils % (Manual) Nucleated RBC % Seg Neutrophils # Seg Neutrophils # Man Lymphocytes # (Manual) Monocytes # (Manual) Eosinophils # (Manual) Basophils # (Manual) PT INR Fibrinogen dRVVT Confirm Interp Factor V Activity POC ABG pH POC ABG pCO2 POC ABG pO2 ABG pO2 ABG HCO3 ABG Base Excess ABG Hemoglobin Oxyhemoglobin Sodium 134 L Potassium Chloride Carbon Dioxide 18 L BUN Creatinine 1.8 H Glucose 192 H POC Glucose 175 H Lactic Acid Calcium Phosphorus Magnesium Direct Bilirubin AST ALT Alkaline Phosphatase Lactate Dehydrogenase Troponin T C-Reactive Protein Total Protein Albumin Prealbumin Triglycerides Cholesterol LDL Cholesterol Direct HDL Cholesterol Urine pH Urine WBC (Auto) Urine Creatinine Urine Total Protein Fluid Total Protein Vancomycin Trough Rheumatoid Factor Complement C4 Miscellaneous Test Crossmatch 09/05/16 09/05/16 09/05/16 11:38 17:48 23:22 WBC RBC Hgb Hct MCV MCH MCHC RDW Plt Count Lymph % (Auto) [place] % (Auto) Lymph # [place] # Baso # Seg Neutrophils % Seg Neuts % (Manual) Lymphocytes % (Manual) Monocytes % (Manual) Eosinophils % (Manual) Basophils % (Manual) Nucleated RBC % Seg Neutrophils # Seg Neutrophils # Man Lymphocytes # (Manual) Monocytes # (Manual) Eosinophils # (Manual) Basophils # (Manual) PT INR Fibrinogen dRVVT Confirm Interp Factor V Activity POC ABG pH POC ABG pCO2 POC ABG pO2 ABG pO2 ABG HCO3 ABG Base Excess ABG Hemoglobin Oxyhemoglobin Sodium Potassium Chloride Carbon Dioxide BUN Creatinine Glucose POC Glucose 164 H 186 H 195 H Lactic Acid Calcium Phosphorus Magnesium Direct Bilirubin AST ALT Alkaline Phosphatase Lactate Dehydrogenase Troponin T C-Reactive Protein Total Protein Albumin Prealbumin Triglycerides Cholesterol LDL Cholesterol Direct HDL Cholesterol Urine pH Urine WBC (Auto) Urine Creatinine Urine Total Protein Fluid Total Protein Vancomycin Trough Rheumatoid Factor Complement C4 Miscellaneous Test Crossmatch 09/06/16 09/06/16 09/06/16 04:12 05:59 07:32 WBC RBC Hgb Hct MCV MCH MCHC RDW Plt Count Lymph % (Auto) [place] % (Auto) Lymph # [place] # Baso # Seg Neutrophils % Seg Neuts % (Manual) Lymphocytes % (Manual) Monocytes % (Manual) Eosinophils % (Manual) Basophils % (Manual) Nucleated RBC % Seg Neutrophils # Seg Neutrophils # Man Lymphocytes # (Manual) Monocytes # (Manual) Eosinophils # (Manual) Basophils # (Manual) PT INR Fibrinogen dRVVT Confirm Interp Factor V Activity POC ABG pH 7.514 H POC ABG pCO2 29.1 L POC ABG pO2 72 L ABG pO2 ABG HCO3 ABG Base Excess ABG Hemoglobin Oxyhemoglobin Sodium 133 L Potassium 3.4 L Chloride 94.9 L Carbon Dioxide 19 L BUN 30 H Creatinine 2.1 H Glucose 139 H POC Glucose 146 H Lactic Acid Calcium Phosphorus Magnesium Direct Bilirubin AST ALT Alkaline Phosphatase Lactate Dehydrogenase Troponin T C-Reactive Protein Total Protein Albumin Prealbumin Triglycerides Cholesterol LDL Cholesterol Direct HDL Cholesterol Urine pH Urine WBC (Auto) Urine Creatinine Urine Total Protein Fluid Total Protein Vancomycin Trough Rheumatoid Factor Complement C4 Miscellaneous Test Crossmatch 09/06/16 09/06/16 09/06/16 11:57 17:58 19:02 WBC RBC Hgb Hct MCV MCH MCHC RDW Plt Count Lymph % (Auto) [place] % (Auto) Lymph # [place] # Baso # Seg Neutrophils % Seg Neuts % (Manual) Lymphocytes % (Manual) Monocytes % (Manual) Eosinophils % (Manual) Basophils % (Manual) Nucleated RBC % Seg Neutrophils # Seg Neutrophils # Man Lymphocytes # (Manual) Monocytes # (Manual) Eosinophils # (Manual) Basophils # (Manual) PT INR Fibrinogen dRVVT Confirm Interp Factor V Activity POC ABG pH 7.465 H POC ABG pCO2 32.0 L POC ABG pO2 ABG pO2 ABG HCO3 ABG Base Excess ABG Hemoglobin Oxyhemoglobin Sodium Potassium Chloride Carbon Dioxide BUN Creatinine Glucose POC Glucose 165 H 160 H Lactic Acid Calcium Phosphorus Magnesium Direct Bilirubin AST ALT Alkaline Phosphatase Lactate Dehydrogenase Troponin T C-Reactive Protein Total Protein Albumin Prealbumin Triglycerides Cholesterol LDL Cholesterol Direct HDL Cholesterol Urine pH Urine WBC (Auto) Urine Creatinine Urine Total Protein Fluid Total Protein Vancomycin Trough Rheumatoid Factor Complement C4 Miscellaneous Test Crossmatch 09/06/16 09/07/16 09/07/16 23:45 02:47 02:47 WBC RBC Hgb Hct MCV MCH MCHC RDW Plt Count Lymph % (Auto) [place] % (Auto) Lymph # [place] # Baso # Seg Neutrophils % Seg Neuts % (Manual) Lymphocytes % (Manual) Monocytes % (Manual) Eosinophils % (Manual) Basophils % (Manual) Nucleated RBC % Seg Neutrophils # Seg Neutrophils # Man Lymphocytes # (Manual) Monocytes # (Manual) Eosinophils # (Manual) Basophils # (Manual) PT INR Fibrinogen dRVVT Confirm Interp Factor V Activity POC ABG pH POC ABG pCO2 POC ABG pO2 ABG pO2 ABG HCO3 ABG Base Excess ABG Hemoglobin Oxyhemoglobin Sodium Potassium Chloride Carbon Dioxide BUN Creatinine Glucose POC Glucose 204 H Lactic Acid Calcium Phosphorus Magnesium Direct Bilirubin AST ALT Alkaline Phosphatase Lactate Dehydrogenase Troponin T C-Reactive Protein Total Protein Albumin Prealbumin Triglycerides Cholesterol LDL Cholesterol Direct HDL Cholesterol Urine pH Urine WBC (Auto) 68.0 H Urine Creatinine 106.1 H Urine Total Protein Fluid Total Protein Vancomycin Trough Rheumatoid Factor Complement C4 Miscellaneous Test Crossmatch 07/19/17 07/19/17 07/19/17 04:50 06:19 06:39 WBC RBC Hgb Hct MCV MCH MCHC RDW Plt Count Lymph % (Auto) [place] % (Auto) Lymph # [place] # Baso # Seg Neutrophils % Seg Neuts % (Manual) Lymphocytes % (Manual) Monocytes % (Manual) Eosinophils % (Manual) Basophils % (Manual) Nucleated RBC % Seg Neutrophils # Seg Neutrophils # Man Lymphocytes # (Manual) Monocytes # (Manual) Eosinophils # (Manual) Basophils # (Manual) PT INR Fibrinogen dRVVT Confirm Interp Factor V Activity POC ABG pH 7.457 H POC ABG pCO2 32.1 L POC ABG pO2 76 L ABG pO2 ABG HCO3 ABG Base Excess ABG Hemoglobin Oxyhemoglobin Sodium 132 L Potassium Chloride 94.7 L Carbon Dioxide BUN 53 H Creatinine 2.9 H Glucose 151 H POC Glucose 149 H Lactic Acid Calcium Phosphorus Magnesium Direct Bilirubin AST ALT Alkaline Phosphatase Lactate Dehydrogenase Troponin T C-Reactive Protein Total Protein Albumin Prealbumin Triglycerides Cholesterol LDL Cholesterol Direct HDL Cholesterol Urine pH Urine WBC (Auto) Urine Creatinine Urine Total Protein Fluid Total Protein Vancomycin Trough Rheumatoid Factor Complement C4 Miscellaneous Test Crossmatch 09/07/16 09/07/16 09/07/16 09:20 11:43 11:43 WBC 19.4 H RBC Hgb 8.3 L Hct 26.4 L D MCV 72 L D MCH 22 L MCHC RDW 17.9 H Plt Count Lymph % (Auto) 8.5 L [place] % (Auto) Lymph # [place] # 1.0 H Baso # Seg Neutrophils % 85.8 H Seg Neuts % (Manual) Lymphocytes % (Manual) Monocytes % (Manual) Eosinophils % (Manual) Basophils % (Manual) Nucleated RBC % Seg Neutrophils # 16.6 H Seg Neutrophils # Man Lymphocytes # (Manual) Monocytes # (Manual) Eosinophils # (Manual) Basophils # (Manual) PT INR Fibrinogen dRVVT Confirm Interp Factor V Activity POC ABG pH POC ABG pCO2 POC ABG pO2 ABG pO2 ABG HCO3 ABG Base Excess ABG Hemoglobin Oxyhemoglobin Sodium 134 L Potassium Chloride 97.2 L Carbon Dioxide 20 L BUN 58 H Creatinine 2.9 H Glucose 147 H POC Glucose Lactic Acid Calcium Phosphorus 2.40 L Magnesium 2.40 H Direct Bilirubin AST ALT Alkaline Phosphatase Lactate Dehydrogenase Troponin T C-Reactive Protein Total Protein 5.8 L Albumin 2.2 L Prealbumin Triglycerides Cholesterol LDL Cholesterol Direct HDL Cholesterol Urine pH Urine WBC (Auto) Urine Creatinine Urine Total Protein Fluid Total Protein Vancomycin Trough Rheumatoid Factor Complement C4 58 H Miscellaneous Test Crossmatch 09/07/16 09/07/16 09/07/16 11:50 16:00 17:31 WBC RBC Hgb Hct MCV MCH MCHC RDW Plt Count Lymph % (Auto) [place] % (Auto) Lymph # [place] # Baso # Seg Neutrophils % Seg Neuts % (Manual) Lymphocytes % (Manual) Monocytes % (Manual) Eosinophils % (Manual) Basophils % (Manual) Nucleated RBC % Seg Neutrophils # Seg Neutrophils # Man Lymphocytes # (Manual) Monocytes # (Manual) Eosinophils # (Manual) Basophils # (Manual) PT INR Fibrinogen dRVVT Confirm Interp Factor V Activity POC ABG pH POC ABG pCO2 POC ABG pO2 158 H ABG pO2 ABG HCO3 ABG Base Excess ABG Hemoglobin Oxyhemoglobin Sodium Potassium Chloride Carbon Dioxide BUN Creatinine Glucose POC Glucose 175 H Lactic Acid Calcium Phosphorus Magnesium Direct Bilirubin AST ALT Alkaline Phosphatase Lactate Dehydrogenase Troponin T C-Reactive Protein Total Protein Albumin Prealbumin Triglycerides Cholesterol LDL Cholesterol Direct HDL Cholesterol Urine pH Urine WBC (Auto) Urine Creatinine 66.3 H Urine Total Protein Fluid Total Protein Vancomycin Trough Rheumatoid Factor Complement C4 Miscellaneous Test Crossmatch 09/07/16 09/08/16 09/08/16 23:50 05:46 06:18 WBC 17.8 H RBC 3.58 L Hgb 8.1 L Hct 25.5 L MCV 71 L MCH 23 L MCHC RDW 18.4 H Plt Count Lymph % (Auto) [place] % (Auto) Lymph # [place] # Baso # Seg Neutrophils % Seg Neuts % (Manual) 92.0 H Lymphocytes % (Manual) 6.0 L Monocytes % (Manual) Eosinophils % (Manual) Basophils % (Manual) Nucleated RBC % Seg Neutrophils # Seg Neutrophils # Man 16.4 H Lymphocytes # (Manual) 1.1 L Monocytes # (Manual) Eosinophils # (Manual) Basophils # (Manual) PT INR Fibrinogen dRVVT Confirm Interp Factor V Activity POC ABG pH POC ABG pCO2 34.3 L POC ABG pO2 71 L ABG pO2 ABG HCO3 ABG Base Excess ABG Hemoglobin Oxyhemoglobin Sodium Potassium Chloride Carbon Dioxide BUN Creatinine Glucose POC Glucose 216 H Lactic Acid Calcium Phosphorus Magnesium Direct Bilirubin AST ALT Alkaline Phosphatase Lactate Dehydrogenase Troponin T C-Reactive Protein Total Protein Albumin Prealbumin Triglycerides Cholesterol LDL Cholesterol Direct HDL Cholesterol Urine pH Urine WBC (Auto) Urine Creatinine Urine Total Protein Fluid Total Protein Vancomycin Trough Rheumatoid Factor Complement C4 Miscellaneous Test Crossmatch 09/08/16 09/08/16 09/08/16 06:18 06:51 10:55 WBC RBC Hgb Hct MCV MCH MCHC RDW Plt Count Lymph % (Auto) [place] % (Auto) Lymph # [place] # Baso # Seg Neutrophils % Seg Neuts % (Manual) Lymphocytes % (Manual) Monocytes % (Manual) Eosinophils % (Manual) Basophils % (Manual) Nucleated RBC % Seg Neutrophils # Seg Neutrophils # Man Lymphocytes # (Manual) Monocytes # (Manual) Eosinophils # (Manual) Basophils # (Manual) PT INR Fibrinogen dRVVT Confirm Interp Factor V Activity POC ABG pH POC ABG pCO2 POC ABG pO2 ABG pO2 ABG HCO3 ABG Base Excess ABG Hemoglobin Oxyhemoglobin Sodium 133 L Potassium Chloride 96.9 L Carbon Dioxide 20 L BUN 63 H Creatinine 2.7 H Glucose 195 H POC Glucose 204 H 169 H Lactic Acid Calcium Phosphorus Magnesium Direct Bilirubin AST ALT Alkaline Phosphatase Lactate Dehydrogenase Troponin T C-Reactive Protein Total Protein Albumin Prealbumin Triglycerides Cholesterol LDL Cholesterol Direct HDL Cholesterol Urine pH Urine WBC (Auto) Urine Creatinine Urine Total Protein Fluid Total Protein Vancomycin Trough Rheumatoid Factor Complement C4 Miscellaneous Test Crossmatch 09/08/16 09/08/16 09/08/16 11:48 11:48 11:48 WBC RBC Hgb Hct MCV MCH MCHC RDW Plt Count Lymph % (Auto) [place] % (Auto) Lymph # [place] # Baso # Seg Neutrophils % Seg Neuts % (Manual) Lymphocytes % (Manual) Monocytes % (Manual) Eosinophils % (Manual) Basophils % (Manual) Nucleated RBC % Seg Neutrophils # Seg Neutrophils # Man Lymphocytes # (Manual) Monocytes # (Manual) Eosinophils # (Manual) Basophils # (Manual) PT INR Fibrinogen 750 H dRVVT Confirm Interp Factor V Activity POC ABG pH POC ABG pCO2 POC ABG pO2 ABG pO2 ABG HCO3 ABG Base Excess ABG Hemoglobin Oxyhemoglobin Sodium Potassium Chloride Carbon Dioxide BUN Creatinine Glucose POC Glucose Lactic Acid Calcium Phosphorus Magnesium Direct Bilirubin AST ALT Alkaline Phosphatase Lactate Dehydrogenase Troponin T C-Reactive Protein 15.70 H Total Protein Albumin Prealbumin Triglycerides Cholesterol LDL Cholesterol Direct HDL Cholesterol Urine pH Urine WBC (Auto) Urine Creatinine Urine Total Protein Fluid Total Protein Vancomycin Trough Rheumatoid Factor 24 H Complement C4 Miscellaneous Test Crossmatch 09/08/16 09/08/16 09/09/16 15:35 18:25 00:24 WBC RBC Hgb Hct MCV MCH MCHC RDW Plt Count Lymph % (Auto) [place] % (Auto) Lymph # [place] # Baso # Seg Neutrophils % Seg Neuts % (Manual) Lymphocytes % (Manual) Monocytes % (Manual) Eosinophils % (Manual) Basophils % (Manual) Nucleated RBC % Seg Neutrophils # Seg Neutrophils # Man Lymphocytes # (Manual) Monocytes # (Manual) Eosinophils # (Manual) Basophils # (Manual) PT INR Fibrinogen dRVVT Confirm Interp Factor V Activity 182 H POC ABG pH POC ABG pCO2 POC ABG pO2 ABG pO2 ABG HCO3 ABG Base Excess ABG Hemoglobin Oxyhemoglobin Sodium Potassium Chloride Carbon Dioxide BUN Creatinine Glucose POC Glucose 184 H 216 H Lactic Acid Calcium Phosphorus Magnesium Direct Bilirubin AST ALT Alkaline Phosphatase Lactate Dehydrogenase Troponin T C-Reactive Protein Total Protein Albumin Prealbumin Triglycerides Cholesterol LDL Cholesterol Direct HDL Cholesterol Urine pH Urine WBC (Auto) Urine Creatinine Urine Total Protein Fluid Total Protein Vancomycin Trough Rheumatoid Factor Complement C4 Miscellaneous Test Crossmatch 09/09/16 09/09/16 09/09/16 03:00 03:00 04:04 WBC 27.9 H RBC Hgb 8.7 L Hct 28.1 L MCV 72 L MCH 22 L MCHC RDW 18.4 H Plt Count 485 H Lymph % (Auto) [place] % (Auto) Lymph # [place] # Baso # Seg Neutrophils % Seg Neuts % (Manual) 77.0 H Lymphocytes % (Manual) 9.0 L Monocytes % (Manual) Eosinophils % (Manual) Basophils % (Manual) Nucleated RBC % Seg Neutrophils # Seg Neutrophils # Man 21.5 H Lymphocytes # (Manual) Monocytes # (Manual) 2.0 H Eosinophils # (Manual) Basophils # (Manual) PT INR Fibrinogen dRVVT Confirm Interp Factor V Activity POC ABG pH POC ABG pCO2 POC ABG pO2 121 H ABG pO2 ABG HCO3 ABG Base Excess ABG Hemoglobin Oxyhemoglobin Sodium 135 L Potassium Chloride 96.3 L Carbon Dioxide 21 L BUN 83 H Creatinine 3.0 H Glucose 135 H POC Glucose Lactic Acid Calcium Phosphorus Magnesium Direct Bilirubin AST ALT Alkaline Phosphatase Lactate Dehydrogenase Troponin T C-Reactive Protein Total Protein Albumin Prealbumin Triglycerides Cholesterol LDL Cholesterol Direct HDL Cholesterol Urine pH Urine WBC (Auto) Urine Creatinine Urine Total Protein Fluid Total Protein Vancomycin Trough Rheumatoid Factor Complement C4 Miscellaneous Test Crossmatch 09/09/16 09/09/16 09/09/16 05:41 11:55 14:13 WBC RBC Hgb Hct MCV MCH MCHC RDW Plt Count Lymph % (Auto) [place] % (Auto) Lymph # [place] # Baso # Seg Neutrophils % Seg Neuts % (Manual) Lymphocytes % (Manual) Monocytes % (Manual) Eosinophils % (Manual) Basophils % (Manual) Nucleated RBC % Seg Neutrophils # Seg Neutrophils # Man Lymphocytes # (Manual) Monocytes # (Manual) Eosinophils # (Manual) Basophils # (Manual) PT INR Fibrinogen dRVVT Confirm Interp Factor V Activity POC ABG pH POC ABG pCO2 POC ABG pO2 ABG pO2 ABG HCO3 ABG Base Excess ABG Hemoglobin Oxyhemoglobin Sodium Potassium Chloride Carbon Dioxide BUN Creatinine Glucose POC Glucose 155 H 186 H Lactic Acid Calcium Phosphorus Magnesium Direct Bilirubin AST ALT Alkaline Phosphatase Lactate Dehydrogenase Troponin T C-Reactive Protein Total Protein Albumin Prealbumin Triglycerides Cholesterol LDL Cholesterol Direct HDL Cholesterol Urine pH Urine WBC (Auto) 25.0 H Urine Creatinine Urine Total Protein Fluid Total Protein Vancomycin Trough Rheumatoid Factor Complement C4 Miscellaneous Test Crossmatch 09/09/16 09/09/16 09/10/16 17:33 23:13 05:09 WBC RBC Hgb Hct MCV MCH MCHC RDW Plt Count Lymph % (Auto) [place] % (Auto) Lymph # [place] # Baso # Seg Neutrophils % Seg Neuts % (Manual) Lymphocytes % (Manual) Monocytes % (Manual) Eosinophils % (Manual) Basophils % (Manual) Nucleated RBC % Seg Neutrophils # Seg Neutrophils # Man Lymphocytes # (Manual) Monocytes # (Manual) Eosinophils # (Manual) Basophils # (Manual) PT INR Fibrinogen dRVVT Confirm Interp Factor V Activity POC ABG pH POC ABG pCO2 POC ABG pO2 74 L ABG pO2 ABG HCO3 ABG Base Excess ABG Hemoglobin Oxyhemoglobin Sodium Potassium Chloride Carbon Dioxide BUN Creatinine Glucose POC Glucose 211 H 215 H Lactic Acid Calcium Phosphorus Magnesium Direct Bilirubin AST ALT Alkaline Phosphatase Lactate Dehydrogenase Troponin T C-Reactive Protein Total Protein Albumin Prealbumin Triglycerides Cholesterol LDL Cholesterol Direct HDL Cholesterol Urine pH Urine WBC (Auto) Urine Creatinine Urine Total Protein Fluid Total Protein Vancomycin Trough Rheumatoid Factor Complement C4 Miscellaneous Test Crossmatch 09/10/16 09/10/16 09/10/16 05:17 05:17 11:31 WBC 15.8 H RBC 3.25 L Hgb 7.3 L Hct 22.9 L MCV 71 L MCH 23 L MCHC RDW 18.4 H Plt Count Lymph % (Auto) [place] % (Auto) Lymph # [place] # Baso # Seg Neutrophils % Seg Neuts % (Manual) 91.0 H Lymphocytes % (Manual) 4.0 L Monocytes % (Manual) Eosinophils % (Manual) Basophils % (Manual) Nucleated RBC % Seg Neutrophils # Seg Neutrophils # Man 14.4 H Lymphocytes # (Manual) 0.6 L Monocytes # (Manual) Eosinophils # (Manual) Basophils # (Manual) PT INR Fibrinogen dRVVT Confirm Interp Factor V Activity POC ABG pH POC ABG pCO2 POC ABG pO2 ABG pO2 ABG HCO3 ABG Base Excess ABG Hemoglobin Oxyhemoglobin Sodium Potassium Chloride Carbon Dioxide 21 L BUN 93 H Creatinine 2.9 H Glucose 146 H POC Glucose 188 H Lactic Acid Calcium 8.1 L Phosphorus Magnesium Direct Bilirubin AST ALT Alkaline Phosphatase Lactate Dehydrogenase Troponin T C-Reactive Protein Total Protein Albumin Prealbumin Triglycerides Cholesterol LDL Cholesterol Direct HDL Cholesterol Urine pH Urine WBC (Auto) Urine Creatinine Urine Total Protein Fluid Total Protein Vancomycin Trough Rheumatoid Factor Complement C4 Miscellaneous Test Crossmatch 09/10/16 09/10/16 09/10/16 13:17 17:20 23:32 WBC RBC Hgb Hct MCV MCH MCHC RDW Plt Count Lymph % (Auto) [place] % (Auto) Lymph # [place] # Baso # Seg Neutrophils % Seg Neuts % (Manual) Lymphocytes % (Manual) Monocytes % (Manual) Eosinophils % (Manual) Basophils % (Manual) Nucleated RBC % Seg Neutrophils # Seg Neutrophils # Man Lymphocytes # (Manual) Monocytes # (Manual) Eosinophils # (Manual) Basophils # (Manual) PT INR Fibrinogen dRVVT Confirm Interp Factor V Activity POC ABG pH POC ABG pCO2 POC ABG pO2 ABG pO2 ABG HCO3 ABG Base Excess ABG Hemoglobin Oxyhemoglobin Sodium Potassium Chloride Carbon Dioxide BUN Creatinine Glucose POC Glucose 199 H 186 H Lactic Acid Calcium Phosphorus Magnesium Direct Bilirubin AST ALT Alkaline Phosphatase Lactate Dehydrogenase Troponin T C-Reactive Protein Total Protein Albumin Prealbumin Triglycerides Cholesterol LDL Cholesterol Direct HDL Cholesterol Urine pH Urine WBC (Auto) Urine Creatinine Urine Total Protein Fluid Total Protein Vancomycin Trough Rheumatoid Factor Complement C4 Miscellaneous Test Crossmatch See Detail 09/11/16 09/11/16 09/11/16 05:10 05:10 05:17 WBC 28.4 H RBC Hgb 9.2 L Hct 29.3 L D MCV 73 L MCH 23 L MCHC RDW 18.9 H Plt Count 452 H Lymph % (Auto) [place] % (Auto) Lymph # [place] # Baso # Seg Neutrophils % Seg Neuts % (Manual) 89.5 H Lymphocytes % (Manual) 2.0 L Monocytes % (Manual) Eosinophils % (Manual) Basophils % (Manual) Nucleated RBC % Seg Neutrophils # Seg Neutrophils # Man 25.4 H Lymphocytes # (Manual) 0.6 L Monocytes # (Manual) 1.3 H Eosinophils # (Manual) Basophils # (Manual) PT INR Fibrinogen dRVVT Confirm Interp Factor V Activity POC ABG pH POC ABG pCO2 POC ABG pO2 ABG pO2 ABG HCO3 ABG Base Excess ABG Hemoglobin Oxyhemoglobin Sodium 136 L Potassium Chloride Carbon Dioxide 18 L BUN 107 H Creatinine 2.6 H Glucose 187 H POC Glucose 230 H Lactic Acid Calcium 8.3 L Phosphorus Magnesium Direct Bilirubin AST ALT Alkaline Phosphatase Lactate Dehydrogenase Troponin T C-Reactive Protein Total Protein Albumin Prealbumin Triglycerides Cholesterol LDL Cholesterol Direct HDL Cholesterol Urine pH Urine WBC (Auto) Urine Creatinine Urine Total Protein Fluid Total Protein Vancomycin Trough Rheumatoid Factor Complement C4 Miscellaneous Test Crossmatch 09/11/16 09/11/16 09/11/16 05:55 12:02 17:32 WBC RBC Hgb Hct MCV MCH MCHC RDW Plt Count Lymph % (Auto) [place] % (Auto) Lymph # [place] # Baso # Seg Neutrophils % Seg Neuts % (Manual) Lymphocytes % (Manual) Monocytes % (Manual) Eosinophils % (Manual) Basophils % (Manual) Nucleated RBC % Seg Neutrophils # Seg Neutrophils # Man Lymphocytes # (Manual) Monocytes # (Manual) Eosinophils # (Manual) Basophils # (Manual) PT INR Fibrinogen dRVVT Confirm Interp Factor V Activity POC ABG pH POC ABG pCO2 33.8 L POC ABG pO2 ABG pO2 ABG HCO3 ABG Base Excess ABG Hemoglobin Oxyhemoglobin Sodium Potassium Chloride Carbon Dioxide BUN Creatinine Glucose POC Glucose 191 H 239 H Lactic Acid Calcium Phosphorus Magnesium Direct Bilirubin AST ALT Alkaline Phosphatase Lactate Dehydrogenase Troponin T C-Reactive Protein Total Protein Albumin Prealbumin Triglycerides Cholesterol LDL Cholesterol Direct HDL Cholesterol Urine pH Urine WBC (Auto) Urine Creatinine Urine Total Protein Fluid Total Protein Vancomycin Trough Rheumatoid Factor Complement C4 Miscellaneous Test Crossmatch 07/09/12/16 09/12/16 23:52 05:09 05:32 WBC RBC Hgb Hct MCV MCH MCHC RDW Plt Count Lymph % (Auto) [place] % (Auto) Lymph # [place] # Baso # Seg Neutrophils % Seg Neuts % (Manual) Lymphocytes % (Manual) Monocytes % (Manual) Eosinophils % (Manual) Basophils % (Manual) Nucleated RBC % Seg Neutrophils # Seg Neutrophils # Man Lymphocytes # (Manual) Monocytes # (Manual) Eosinophils # (Manual) Basophils # (Manual) PT INR Fibrinogen dRVVT Confirm Interp Factor V Activity POC ABG pH POC ABG pCO2 34.6 L POC ABG pO2 ABG pO2 ABG HCO3 ABG Base Excess ABG Hemoglobin Oxyhemoglobin Sodium Potassium Chloride Carbon Dioxide BUN Creatinine Glucose POC Glucose 265 H 184 H Lactic Acid Calcium Phosphorus Magnesium Direct Bilirubin AST ALT Alkaline Phosphatase Lactate Dehydrogenase Troponin T C-Reactive Protein Total Protein Albumin Prealbumin Triglycerides Cholesterol LDL Cholesterol Direct HDL Cholesterol Urine pH Urine WBC (Auto) Urine Creatinine Urine Total Protein Fluid Total Protein Vancomycin Trough Rheumatoid Factor Complement C4 Miscellaneous Test Crossmatch 09/12/16 09/12/16 09/12/16 06:45 06:45 07:22 WBC 31.7 H RBC 3.54 L Hgb 8.3 L Hct 25.9 L MCV 73 L MCH 23 L MCHC RDW 18.9 H Plt Count Lymph % (Auto) [place] % (Auto) Lymph # [place] # Baso # Seg Neutrophils % Seg Neuts % (Manual) 88.5 H Lymphocytes % (Manual) 4.5 L Monocytes % (Manual) Eosinophils % (Manual) Basophils % (Manual) Nucleated RBC % Seg Neutrophils # Seg Neutrophils # Man 28.1 H Lymphocytes # (Manual) Monocytes # (Manual) 1.0 H Eosinophils # (Manual) Basophils # (Manual) PT INR Fibrinogen dRVVT Confirm Interp Factor V Activity POC ABG pH POC ABG pCO2 POC ABG pO2 ABG pO2 ABG HCO3 ABG Base Excess ABG Hemoglobin Oxyhemoglobin Sodium Potassium Chloride Carbon Dioxide 20 L BUN 115 H Creatinine 2.7 H Glucose 165 H POC Glucose Lactic Acid Calcium 8.0 L Phosphorus Magnesium Direct Bilirubin AST ALT Alkaline Phosphatase Lactate Dehydrogenase Troponin T C-Reactive Protein Total Protein Albumin Prealbumin Triglycerides 217 H Cholesterol LDL Cholesterol Direct HDL Cholesterol Urine pH Urine WBC (Auto) Urine Creatinine Urine Total Protein Fluid Total Protein Vancomycin Trough Rheumatoid Factor Complement C4 Miscellaneous Test Crossmatch 09/12/16 09/12/16 09/12/16 07:22 09:59 12:21 WBC RBC Hgb Hct MCV MCH MCHC RDW Plt Count Lymph % (Auto) [place] % (Auto) Lymph # [place] # Baso # Seg Neutrophils % Seg Neuts % (Manual) Lymphocytes % (Manual) Monocytes % (Manual) Eosinophils % (Manual) Basophils % (Manual) Nucleated RBC % Seg Neutrophils # Seg Neutrophils # Man Lymphocytes # (Manual) Monocytes # (Manual) Eosinophils # (Manual) Basophils # (Manual) PT INR Fibrinogen dRVVT Confirm Interp Positive H Factor V Activity POC ABG pH POC ABG pCO2 POC ABG pO2 ABG pO2 ABG HCO3 ABG Base Excess ABG Hemoglobin Oxyhemoglobin Sodium Potassium Chloride Carbon Dioxide BUN Creatinine Glucose POC Glucose 224 H Lactic Acid Calcium Phosphorus Magnesium Direct Bilirubin AST ALT Alkaline Phosphatase Lactate Dehydrogenase Troponin T C-Reactive Protein 1.70 H Total Protein Albumin Prealbumin Triglycerides Cholesterol LDL Cholesterol Direct HDL Cholesterol Urine pH Urine WBC (Auto) Urine Creatinine Urine Total Protein Fluid Total Protein Vancomycin Trough Rheumatoid Factor Complement C4 Miscellaneous Test Crossmatch 09/12/16 09/12/16 09/13/16 16:51 23:28 04:00 WBC 45.0 H* RBC Hgb 9.4 L Hct MCV 75 L MCH 23 L MCHC RDW 19.0 H Plt Count 470 H Lymph % (Auto) [place] % (Auto) Lymph # [place] # Baso # Seg Neutrophils % Seg Neuts % (Manual) 89.0 H Lymphocytes % (Manual) 5.0 L Monocytes % (Manual) Eosinophils % (Manual) Basophils % (Manual) Nucleated RBC % Seg Neutrophils # Seg Neutrophils # Man 40.1 H Lymphocytes # (Manual) Monocytes # (Manual) Eosinophils # (Manual) Basophils # (Manual) PT INR Fibrinogen dRVVT Confirm Interp Factor V Activity POC ABG pH POC ABG pCO2 POC ABG pO2 ABG pO2 ABG HCO3 ABG Base Excess ABG Hemoglobin Oxyhemoglobin Sodium Potassium Chloride Carbon Dioxide BUN Creatinine Glucose POC Glucose 169 H 150 H Lactic Acid Calcium Phosphorus Magnesium Direct Bilirubin AST ALT Alkaline Phosphatase Lactate Dehydrogenase Troponin T C-Reactive Protein Total Protein Albumin Prealbumin Triglycerides Cholesterol LDL Cholesterol Direct HDL Cholesterol Urine pH Urine WBC (Auto) Urine Creatinine Urine Total Protein Fluid Total Protein Vancomycin Trough Rheumatoid Factor Complement C4 Miscellaneous Test Crossmatch 09/13/16 09/13/1609/13/17 04:00 11:26 17:31 WBC RBC Hgb Hct MCV MCH MCHC RDW Plt Count Lymph % (Auto) [place] % (Auto) Lymph # [place] # Baso # Seg Neutrophils % Seg Neuts % (Manual) Lymphocytes % (Manual) Monocytes % (Manual) Eosinophils % (Manual) Basophils % (Manual) Nucleated RBC % Seg Neutrophils # Seg Neutrophils # Man Lymphocytes # (Manual) Monocytes # (Manual) Eosinophils # (Manual) Basophils # (Manual) PT INR Fibrinogen dRVVT Confirm Interp Factor V Activity POC ABG pH POC ABG pCO2 POC ABG pO2 ABG pO2 ABG HCO3 ABG Base Excess ABG Hemoglobin Oxyhemoglobin Sodium Potassium Chloride Carbon Dioxide 20 L BUN 116 H Creatinine 3.0 H Glucose 172 H POC Glucose 140 H 183 H Lactic Acid Calcium Phosphorus Magnesium Direct Bilirubin AST ALT Alkaline Phosphatase Lactate Dehydrogenase Troponin T C-Reactive Protein Total Protein 6.2 L Albumin 2.9 L Prealbumin Triglycerides Cholesterol LDL Cholesterol Direct HDL Cholesterol Urine pH Urine WBC (Auto) Urine Creatinine Urine Total Protein Fluid Total Protein Vancomycin Trough Rheumatoid Factor Complement C4 Miscellaneous Test Crossmatch 09/13/16 09/14/16 09/14/16 23:23 04:06 04:07 WBC 29.4 H RBC Hgb 8.9 L Hct 27.3 L MCV 75 L MCH 24 L MCHC RDW 19.1 H Plt Count Lymph % (Auto) [place] % (Auto) Lymph # [place] # Baso # Seg Neutrophils % Seg Neuts % (Manual) 84.0 H Lymphocytes % (Manual) 6.0 L Monocytes % (Manual) 9.0 H Eosinophils % (Manual) Basophils % (Manual) Nucleated RBC % Seg Neutrophils # Seg Neutrophils # Man 24.7 H Lymphocytes # (Manual) Monocytes # (Manual) 2.6 H Eosinophils # (Manual) Basophils # (Manual) PT INR Fibrinogen dRVVT Confirm Interp Factor V Activity POC ABG pH 7.342 L POC ABG pCO2 POC ABG pO2 116 H ABG pO2 ABG HCO3 ABG Base Excess ABG Hemoglobin Oxyhemoglobin Sodium Potassium Chloride Carbon Dioxide BUN Creatinine Glucose POC Glucose 154 H Lactic Acid Calcium Phosphorus Magnesium Direct Bilirubin AST ALT Alkaline Phosphatase Lactate Dehydrogenase Troponin T C-Reactive Protein Total Protein Albumin Prealbumin Triglycerides Cholesterol LDL Cholesterol Direct HDL Cholesterol Urine pH Urine WBC (Auto) Urine Creatinine Urine Total Protein Fluid Total Protein Vancomycin Trough Rheumatoid Factor Complement C4 Miscellaneous Test Crossmatch 09/14/16 09/14/16 09/14/16 04:07 05:29 12:19 WBC RBC Hgb Hct MCV MCH MCHC RDW Plt Count Lymph % (Auto) [place] % (Auto) Lymph # [place] # Baso # Seg Neutrophils % Seg Neuts % (Manual) Lymphocytes % (Manual) Monocytes % (Manual) Eosinophils % (Manual) Basophils % (Manual) Nucleated RBC % Seg Neutrophils # Seg Neutrophils # Man Lymphocytes # (Manual) Monocytes # (Manual) Eosinophils # (Manual) Basophils # (Manual) PT INR Fibrinogen dRVVT Confirm Interp Factor V Activity POC ABG pH POC ABG pCO2 POC ABG pO2 ABG pO2 ABG HCO3 ABG Base Excess ABG Hemoglobin Oxyhemoglobin Sodium 136 L Potassium Chloride Carbon Dioxide 18 L BUN 121 H Creatinine 2.8 H Glucose 214 H POC Glucose 239 H 181 H Lactic Acid Calcium Phosphorus Magnesium Direct Bilirubin AST ALT Alkaline Phosphatase Lactate Dehydrogenase Troponin T C-Reactive Protein Total Protein Albumin Prealbumin Triglycerides Cholesterol LDL Cholesterol Direct HDL Cholesterol Urine pH Urine WBC (Auto) Urine Creatinine Urine Total Protein Fluid Total Protein Vancomycin Trough Rheumatoid Factor Complement C4 Miscellaneous Test Crossmatch 09/14/16 09/14/16 09/15/16 18:12 23:37 05:00 WBC 26.1 H RBC 3.05 L Hgb 7.2 L Hct 22.9 L MCV 75 L MCH 24 L MCHC RDW 19.0 H Plt Count Lymph % (Auto) [place] % (Auto) Lymph # [place] # Baso # Seg Neutrophils % Seg Neuts % (Manual) Lymphocytes % (Manual) Monocytes % (Manual) Eosinophils % (Manual) Basophils % (Manual) Nucleated RBC % Seg Neutrophils # Seg Neutrophils # Man Lymphocytes # (Manual) Monocytes # (Manual) Eosinophils # (Manual) Basophils # (Manual) PT INR Fibrinogen dRVVT Confirm Interp Factor V Activity POC ABG pH POC ABG pCO2 POC ABG pO2 ABG pO2 ABG HCO3 ABG Base Excess ABG Hemoglobin Oxyhemoglobin Sodium Potassium Chloride Carbon Dioxide BUN Creatinine Glucose POC Glucose 266 H 154 H Lactic Acid Calcium Phosphorus Magnesium Direct Bilirubin AST ALT Alkaline Phosphatase Lactate Dehydrogenase Troponin T C-Reactive Protein Total Protein Albumin Prealbumin Triglycerides Cholesterol LDL Cholesterol Direct HDL Cholesterol Urine pH Urine WBC (Auto) Urine Creatinine Urine Total Protein Fluid Total Protein Vancomycin Trough Rheumatoid Factor Complement C4 Miscellaneous Test Crossmatch 09/15/16 09/15/16 09/15/16 05:00 05:17 12:45 WBC RBC Hgb Hct MCV MCH MCHC RDW Plt Count Lymph % (Auto) [place] % (Auto) Lymph # [place] # Baso # Seg Neutrophils % Seg Neuts % (Manual) Lymphocytes % (Manual) Monocytes % (Manual) Eosinophils % (Manual) Basophils % (Manual) Nucleated RBC % Seg Neutrophils # Seg Neutrophils # Man Lymphocytes # (Manual) Monocytes # (Manual) Eosinophils # (Manual) Basophils # (Manual) PT INR Fibrinogen dRVVT Confirm Interp Factor V Activity POC ABG pH POC ABG pCO2 POC ABG pO2 ABG pO2 ABG HCO3 ABG Base Excess ABG Hemoglobin Oxyhemoglobin Sodium Potassium 5.2 H Chloride Carbon Dioxide 18 L BUN 139 H Creatinine 3.7 H Glucose 227 H POC Glucose 226 H 244 H Lactic Acid Calcium 8.3 L Phosphorus Magnesium Direct Bilirubin AST ALT Alkaline Phosphatase Lactate Dehydrogenase Troponin T C-Reactive Protein Total Protein Albumin Prealbumin Triglycerides Cholesterol LDL Cholesterol Direct HDL Cholesterol Urine pH Urine WBC (Auto) Urine Creatinine Urine Total Protein Fluid Total Protein Vancomycin Trough Rheumatoid Factor Complement C4 Miscellaneous Test Crossmatch 09/15/16 09/15/16 09/15/16 14:32 17:33 23:35 WBC RBC Hgb Hct MCV MCH MCHC RDW Plt Count Lymph % (Auto) [place] % (Auto) Lymph # [place] # Baso # Seg Neutrophils % Seg Neuts % (Manual) Lymphocytes % (Manual) Monocytes % (Manual) Eosinophils % (Manual) Basophils % (Manual) Nucleated RBC % Seg Neutrophils # Seg Neutrophils # Man Lymphocytes # (Manual) Monocytes # (Manual) Eosinophils # (Manual) Basophils # (Manual) PT INR Fibrinogen dRVVT Confirm Interp Factor V Activity POC ABG pH POC ABG pCO2 27.7 L POC ABG pO2 120 H ABG pO2 ABG HCO3 ABG Base Excess ABG Hemoglobin Oxyhemoglobin Sodium Potassium Chloride Carbon Dioxide BUN Creatinine Glucose POC Glucose 232 H 167 H Lactic Acid Calcium Phosphorus Magnesium Direct Bilirubin AST ALT Alkaline Phosphatase Lactate Dehydrogenase Troponin T C-Reactive Protein Total Protein Albumin Prealbumin Triglycerides Cholesterol LDL Cholesterol Direct HDL Cholesterol Urine pH Urine WBC (Auto) Urine Creatinine Urine Total Protein Fluid Total Protein Vancomycin Trough Rheumatoid Factor Complement C4 Miscellaneous Test Crossmatch 09/16/16 09/16/16 09/16/16 03:58 10:27 10:27 WBC 19.0 H RBC 2.77 L Hgb 6.5 L Hct 20.9 L MCV 76 L MCH 23 L MCHC RDW 19.3 H Plt Count Lymph % (Auto) 11.0 L [place] % (Auto) Lymph # [place] # 1.1 H Baso # Seg Neutrophils % 82.5 H Seg Neuts % (Manual) Lymphocytes % (Manual) Monocytes % (Manual) Eosinophils % (Manual) Basophils % (Manual) Nucleated RBC % Seg Neutrophils # 15.7 H Seg Neutrophils # Man Lymphocytes # (Manual) Monocytes # (Manual) Eosinophils # (Manual) Basophils # (Manual) PT INR Fibrinogen dRVVT Confirm Interp Factor V Activity POC ABG pH POC ABG pCO2 POC ABG pO2 ABG pO2 ABG HCO3 ABG Base Excess ABG Hemoglobin Oxyhemoglobin Sodium Potassium Chloride 109.3 H Carbon Dioxide 18 L BUN 139 H Creatinine 4.1 H Glucose 144 H POC Glucose 146 H Lactic Acid Calcium 8.1 L Phosphorus Magnesium Direct Bilirubin AST ALT Alkaline Phosphatase Lactate Dehydrogenase Troponin T C-Reactive Protein Total Protein Albumin Prealbumin Triglycerides Cholesterol LDL Cholesterol Direct HDL Cholesterol Urine pH Urine WBC (Auto) Urine Creatinine Urine Total Protein Fluid Total Protein Vancomycin Trough Rheumatoid Factor Complement C4 Miscellaneous Test Crossmatch 09/16/16 09/16/16 09/16/16 12:04 12:10 13:55 WBC RBC Hgb Hct MCV MCH MCHC RDW Plt Count Lymph % (Auto) [place] % (Auto) Lymph # [place] # Baso # Seg Neutrophils % Seg Neuts % (Manual) Lymphocytes % (Manual) Monocytes % (Manual) Eosinophils % (Manual) Basophils % (Manual) Nucleated RBC % Seg Neutrophils # Seg Neutrophils # Man Lymphocytes # (Manual) Monocytes # (Manual) Eosinophils # (Manual) Basophils # (Manual) PT INR Fibrinogen dRVVT Confirm Interp Factor V Activity POC ABG pH POC ABG pCO2 32.9 L POC ABG pO2 ABG pO2 ABG HCO3 ABG Base Excess ABG Hemoglobin Oxyhemoglobin Sodium Potassium Chloride Carbon Dioxide BUN Creatinine Glucose POC Glucose 185 H Lactic Acid Calcium Phosphorus Magnesium Direct Bilirubin AST ALT Alkaline Phosphatase Lactate Dehydrogenase Troponin T C-Reactive Protein Total Protein Albumin Prealbumin Triglycerides Cholesterol LDL Cholesterol Direct HDL Cholesterol Urine pH Urine WBC (Auto) Urine Creatinine Urine Total Protein Fluid Total Protein Vancomycin Trough Rheumatoid Factor Complement C4 Miscellaneous Test Crossmatch See Detail 09/16/16 09/16/16 09/16/16 17:55 19:19 23:48 WBC RBC Hgb Hct MCV MCH MCHC RDW Plt Count Lymph % (Auto) [place] % (Auto) Lymph # [place] # Baso # Seg Neutrophils % Seg Neuts % (Manual) Lymphocytes % (Manual) Monocytes % (Manual) Eosinophils % (Manual) Basophils % (Manual) Nucleated RBC % Seg Neutrophils # Seg Neutrophils # Man Lymphocytes # (Manual) Monocytes # (Manual) Eosinophils # (Manual) Basophils # (Manual) PT INR Fibrinogen dRVVT Confirm Interp Factor V Activity POC ABG pH POC ABG pCO2 POC ABG pO2 ABG pO2 ABG HCO3 ABG Base Excess ABG Hemoglobin Oxyhemoglobin Sodium Potassium Chloride Carbon Dioxide BUN Creatinine Glucose POC Glucose 222 H 107 H Lactic Acid Calcium Phosphorus Magnesium Direct Bilirubin AST ALT Alkaline Phosphatase Lactate Dehydrogenase Troponin T C-Reactive Protein Total Protein Albumin Prealbumin Triglycerides Cholesterol LDL Cholesterol Direct HDL Cholesterol Urine pH Urine WBC (Auto) Urine Creatinine 47.4 H Urine Total Protein 16 H Fluid Total Protein Vancomycin Trough Rheumatoid Factor Complement C4 Miscellaneous Test Crossmatch 09/17/16 09/17/16 09/17/16 03:45 03:45 04:55 WBC 19.6 H RBC 3.41 L Hgb 8.5 L Hct 26.7 L MCV 78 L MCH 25 L MCHC RDW 19.9 H Plt Count Lymph % (Auto) 9.3 L [place] % (Auto) Lymph # [place] # 1.2 H Baso # Seg Neutrophils % 83.9 H Seg Neuts % (Manual) Lymphocytes % (Manual) Monocytes % (Manual) Eosinophils % (Manual) Basophils % (Manual) Nucleated RBC % Seg Neutrophils # 16.4 H Seg Neutrophils # Man Lymphocytes # (Manual) Monocytes # (Manual) Eosinophils # (Manual) Basophils # (Manual) PT INR Fibrinogen dRVVT Confirm Interp Factor V Activity POC ABG pH POC ABG pCO2 POC ABG pO2 ABG pO2 ABG HCO3 ABG Base Excess ABG Hemoglobin Oxyhemoglobin Sodium 146 H Potassium 5.1 H Chloride 110.9 H Carbon Dioxide 16 L BUN 146 H Creatinine 4.0 H Glucose 108 H POC Glucose 133 H Lactic Acid Calcium Phosphorus Magnesium 3.00 H Direct Bilirubin AST ALT Alkaline Phosphatase Lactate Dehydrogenase Troponin T C-Reactive Protein Total Protein Albumin Prealbumin Triglycerides Cholesterol LDL Cholesterol Direct HDL Cholesterol Urine pH Urine WBC (Auto) Urine Creatinine Urine Total Protein Fluid Total Protein Vancomycin Trough Rheumatoid Factor Complement C4 Miscellaneous Test Crossmatch 09/17/16 09/17/16 09/17/16 11:15 17:33 23:47 WBC RBC Hgb Hct MCV MCH MCHC RDW Plt Count Lymph % (Auto) [place] % (Auto) Lymph # [place] # Baso # Seg Neutrophils % Seg Neuts % (Manual) Lymphocytes % (Manual) Monocytes % (Manual) Eosinophils % (Manual) Basophils % (Manual) Nucleated RBC % Seg Neutrophils # Seg Neutrophils # Man Lymphocytes # (Manual) Monocytes # (Manual) Eosinophils # (Manual) Basophils # (Manual) PT INR Fibrinogen dRVVT Confirm Interp Factor V Activity POC ABG pH POC ABG pCO2 POC ABG pO2 ABG pO2 ABG HCO3 ABG Base Excess ABG Hemoglobin Oxyhemoglobin Sodium Potassium Chloride Carbon Dioxide BUN Creatinine Glucose POC Glucose 176 H 246 H 148 H Lactic Acid Calcium Phosphorus Magnesium Direct Bilirubin AST ALT Alkaline Phosphatase Lactate Dehydrogenase Troponin T C-Reactive Protein Total Protein Albumin Prealbumin Triglycerides Cholesterol LDL Cholesterol Direct HDL Cholesterol Urine pH Urine WBC (Auto) Urine Creatinine Urine Total Protein Fluid Total Protein Vancomycin Trough Rheumatoid Factor Complement C4 Miscellaneous Test Crossmatch 09/18/16 09/18/16 09/18/16 05:33 08:31 08:31 WBC 18.0 H RBC 3.17 L Hgb 9.0 L Hct 25.7 L MCV MCH MCHC 35 H RDW 20.4 H Plt Count Lymph % (Auto) [place] % (Auto) Lymph # [place] # Baso # Seg Neutrophils % Seg Neuts % (Manual) Lymphocytes % (Manual) Monocytes % (Manual) Eosinophils % (Manual) Basophils % (Manual) Nucleated RBC % Seg Neutrophils # Seg Neutrophils # Man Lymphocytes # (Manual) Monocytes # (Manual) Eosinophils # (Manual) Basophils # (Manual) PT INR Fibrinogen dRVVT Confirm Interp Factor V Activity POC ABG pH POC ABG pCO2 POC ABG pO2 ABG pO2 ABG HCO3 ABG Base Excess ABG Hemoglobin Oxyhemoglobin Sodium Potassium Chloride Carbon Dioxide 15 L BUN 124 H Creatinine 3.8 H Glucose POC Glucose 120 H Lactic Acid Calcium 8.1 L Phosphorus Magnesium Direct Bilirubin AST ALT Alkaline Phosphatase Lactate Dehydrogenase Troponin T C-Reactive Protein Total Protein Albumin Prealbumin Triglycerides Cholesterol LDL Cholesterol Direct HDL Cholesterol Urine pH Urine WBC (Auto) Urine Creatinine Urine Total Protein Fluid Total Protein Vancomycin Trough Rheumatoid Factor Complement C4 Miscellaneous Test Crossmatch 09/18/16 09/18/16 09/18/16 12:03 15:34 17:50 WBC RBC Hgb Hct MCV MCH MCHC RDW Plt Count Lymph % (Auto) [place] % (Auto) Lymph # [place] # Baso # Seg Neutrophils % Seg Neuts % (Manual) Lymphocytes % (Manual) Monocytes % (Manual) Eosinophils % (Manual) Basophils % (Manual) Nucleated RBC % Seg Neutrophils # Seg Neutrophils # Man Lymphocytes # (Manual) Monocytes # (Manual) Eosinophils # (Manual) Basophils # (Manual) PT INR Fibrinogen dRVVT Confirm Interp Factor V Activity POC ABG pH POC ABG pCO2 25.7 L POC ABG pO2 66 L ABG pO2 ABG HCO3 ABG Base Excess ABG Hemoglobin Oxyhemoglobin Sodium Potassium Chloride Carbon Dioxide BUN Creatinine Glucose POC Glucose 156 H 220 H Lactic Acid Calcium Phosphorus Magnesium Direct Bilirubin AST ALT Alkaline Phosphatase Lactate Dehydrogenase Troponin T C-Reactive Protein Total Protein Albumin Prealbumin Triglycerides Cholesterol LDL Cholesterol Direct HDL Cholesterol Urine pH Urine WBC (Auto) Urine Creatinine Urine Total Protein Fluid Total Protein Vancomycin Trough Rheumatoid Factor Complement C4 Miscellaneous Test Crossmatch 09/19/16 09/19/16 09/19/16 06:21 09:50 09:50 WBC 17.1 H RBC 3.49 L Hgb 9.0 L Hct 28.1 L MCV MCH 26 L MCHC RDW 20.8 H Plt Count Lymph % (Auto) 11.5 L [place] % (Auto) 7.5 H Lymph # [place] # 1.3 H Baso # Seg Neutrophils % 79.8 H Seg Neuts % (Manual) Lymphocytes % (Manual) Monocytes % (Manual) Eosinophils % (Manual) Basophils % (Manual) Nucleated RBC % Seg Neutrophils # 13.7 H Seg Neutrophils # Man Lymphocytes # (Manual) Monocytes # (Manual) Eosinophils # (Manual) Basophils # (Manual) PT INR Fibrinogen dRVVT Confirm Interp Factor V Activity POC ABG pH POC ABG pCO2 POC ABG pO2 ABG pO2 ABG HCO3 ABG Base Excess ABG Hemoglobin Oxyhemoglobin Sodium Potassium Chloride 108.6 H Carbon Dioxide 15 L BUN 125 H Creatinine 4.1 H Glucose 124 H POC Glucose 119 H Lactic Acid Calcium Phosphorus Magnesium Direct Bilirubin AST ALT Alkaline Phosphatase Lactate Dehydrogenase Troponin T C-Reactive Protein Total Protein Albumin Prealbumin Triglycerides Cholesterol LDL Cholesterol Direct HDL Cholesterol Urine pH Urine WBC (Auto) Urine Creatinine Urine Total Protein Fluid Total Protein Vancomycin Trough Rheumatoid Factor Complement C4 Miscellaneous Test Crossmatch 09/19/16 09/19/16 09/19/16 11:25 17:53 23:36 WBC RBC Hgb Hct MCV MCH MCHC RDW Plt Count Lymph % (Auto) [place] % (Auto) Lymph # [place] # Baso # Seg Neutrophils % Seg Neuts % (Manual) Lymphocytes % (Manual) Monocytes % (Manual) Eosinophils % (Manual) Basophils % (Manual) Nucleated RBC % Seg Neutrophils # Seg Neutrophils # Man Lymphocytes # (Manual) Monocytes # (Manual) Eosinophils # (Manual) Basophils # (Manual) PT INR Fibrinogen dRVVT Confirm Interp Factor V Activity POC ABG pH POC ABG pCO2 POC ABG pO2 ABG pO2 ABG HCO3 ABG Base Excess ABG Hemoglobin Oxyhemoglobin Sodium Potassium Chloride Carbon Dioxide BUN Creatinine Glucose POC Glucose 160 H 245 H 121 H Lactic Acid Calcium Phosphorus Magnesium Direct Bilirubin AST ALT Alkaline Phosphatase Lactate Dehydrogenase Troponin T C-Reactive Protein Total Protein Albumin Prealbumin Triglycerides Cholesterol LDL Cholesterol Direct HDL Cholesterol Urine pH Urine WBC (Auto) Urine Creatinine Urine Total Protein Fluid Total Protein Vancomycin Trough Rheumatoid Factor Complement C4 Miscellaneous Test Crossmatch 09/20/16 09/20/16 09/20/16 04:10 04:10 04:10 WBC 17.0 H RBC 3.21 L Hgb 8.2 L Hct 25.5 L MCV MCH 26 L MCHC RDW 20.9 H Plt Count Lymph % (Auto) [place] % (Auto) Lymph # [place] # Baso # Seg Neutrophils % Seg Neuts % (Manual) Lymphocytes % (Manual) Monocytes % (Manual) Eosinophils % (Manual) Basophils % (Manual) Nucleated RBC % Seg Neutrophils # Seg Neutrophils # Man Lymphocytes # (Manual) Monocytes # (Manual) Eosinophils # (Manual) Basophils # (Manual) PT INR Fibrinogen dRVVT Confirm Interp Factor V Activity POC ABG pH POC ABG pCO2 POC ABG pO2 ABG pO2 ABG HCO3 ABG Base Excess ABG Hemoglobin Oxyhemoglobin Sodium Potassium Chloride 111.0 H Carbon Dioxide 16 L BUN 129 H Creatinine 3.7 H Glucose 115 H POC Glucose Lactic Acid Calcium 8.2 L Phosphorus Magnesium Direct Bilirubin AST ALT Alkaline Phosphatase Lactate Dehydrogenase Troponin T C-Reactive Protein Total Protein Albumin Prealbumin Triglycerides 243 H Cholesterol LDL Cholesterol Direct HDL Cholesterol Urine pH Urine WBC (Auto) Urine Creatinine Urine Total Protein Fluid Total Protein Vancomycin Trough Rheumatoid Factor Complement C4 Miscellaneous Test Crossmatch 09/20/16 09/20/16 09/20/16 05:40 11:52 16:50 WBC RBC Hgb Hct MCV MCH MCHC RDW Plt Count Lymph % (Auto) [place] % (Auto) Lymph # [place] # Baso # Seg Neutrophils % Seg Neuts % (Manual) Lymphocytes % (Manual) Monocytes % (Manual) Eosinophils % (Manual) Basophils % (Manual) Nucleated RBC % Seg Neutrophils # Seg Neutrophils # Man Lymphocytes # (Manual) Monocytes # (Manual) Eosinophils # (Manual) Basophils # (Manual) PT INR Fibrinogen dRVVT Confirm Interp Factor V Activity POC ABG pH POC ABG pCO2 POC ABG pO2 ABG pO2 ABG HCO3 ABG Base Excess ABG Hemoglobin Oxyhemoglobin Sodium Potassium Chloride Carbon Dioxide BUN Creatinine Glucose POC Glucose 131 H 183 H 236 H Lactic Acid Calcium Phosphorus Magnesium Direct Bilirubin AST ALT Alkaline Phosphatase Lactate Dehydrogenase Troponin T C-Reactive Protein Total Protein Albumin Prealbumin Triglycerides Cholesterol LDL Cholesterol Direct HDL Cholesterol Urine pH Urine WBC (Auto) Urine Creatinine Urine Total Protein Fluid Total Protein Vancomycin Trough Rheumatoid Factor Complement C4 Miscellaneous Test Crossmatch 09/20/16 09/21/16 09/21/16 23:51 03:30 04:44 WBC RBC Hgb Hct MCV MCH MCHC RDW Plt Count Lymph % (Auto) [place] % (Auto) Lymph # [place] # Baso # Seg Neutrophils % Seg Neuts % (Manual) Lymphocytes % (Manual) Monocytes % (Manual) Eosinophils % (Manual) Basophils % (Manual) Nucleated RBC % Seg Neutrophils # Seg Neutrophils # Man Lymphocytes # (Manual) Monocytes # (Manual) Eosinophils # (Manual) Basophils # (Manual) PT INR Fibrinogen dRVVT Confirm Interp Factor V Activity POC ABG pH POC ABG pCO2 POC ABG pO2 ABG pO2 ABG HCO3 ABG Base Excess ABG Hemoglobin Oxyhemoglobin Sodium Potassium Chloride Carbon Dioxide BUN Creatinine Glucose POC Glucose 114 H 141 H Lactic Acid Calcium Phosphorus Magnesium 2.70 H Direct Bilirubin AST ALT Alkaline Phosphatase Lactate Dehydrogenase Troponin T C-Reactive Protein Total Protein Albumin Prealbumin Triglycerides Cholesterol LDL Cholesterol Direct HDL Cholesterol Urine pH Urine WBC (Auto) Urine Creatinine Urine Total Protein Fluid Total Protein Vancomycin Trough Rheumatoid Factor Complement C4 Miscellaneous Test Crossmatch 09/21/16 09/21/16 09/21/16 07:45 07:45 10:01 WBC 13.8 H RBC 2.94 L Hgb 7.5 L Hct 23.5 L MCV MCH 26 L MCHC RDW 21.2 H Plt Count Lymph % (Auto) 6.9 L [place] % (Auto) 9.4 H Lymph # 0.9 L [place] # 1.3 H Baso # Seg Neutrophils % 83.2 H Seg Neuts % (Manual) Lymphocytes % (Manual) Monocytes % (Manual) Eosinophils % (Manual) Basophils % (Manual) Nucleated RBC % Seg Neutrophils # 11.5 H Seg Neutrophils # Man Lymphocytes # (Manual) Monocytes # (Manual) Eosinophils # (Manual) Basophils # (Manual) PT INR Fibrinogen dRVVT Confirm Interp Factor V Activity POC ABG pH 7.308 L POC ABG pCO2 31.9 L POC ABG pO2 148 H ABG pO2 ABG HCO3 ABG Base Excess ABG Hemoglobin Oxyhemoglobin Sodium 147 H Potassium Chloride 114.2 H Carbon Dioxide 15 L BUN 120 H Creatinine 3.9 H Glucose 156 H POC Glucose Lactic Acid Calcium 8.2 L Phosphorus Magnesium Direct Bilirubin AST ALT Alkaline Phosphatase Lactate Dehydrogenase Troponin T C-Reactive Protein Total Protein Albumin Prealbumin Triglycerides Cholesterol LDL Cholesterol Direct HDL Cholesterol Urine pH Urine WBC (Auto) Urine Creatinine Urine Total Protein Fluid Total Protein Vancomycin Trough Rheumatoid Factor Complement C4 Miscellaneous Test Crossmatch 09/21/16 09/21/16 09/21/16 12:00 12:03 13:00 WBC RBC Hgb Hct MCV MCH MCHC RDW Plt Count Lymph % (Auto) [place] % (Auto) Lymph # [place] # Baso # Seg Neutrophils % Seg Neuts % (Manual) Lymphocytes % (Manual) Monocytes % (Manual) Eosinophils % (Manual) Basophils % (Manual) Nucleated RBC % Seg Neutrophils # Seg Neutrophils # Man Lymphocytes # (Manual) Monocytes # (Manual) Eosinophils # (Manual) Basophils # (Manual) PT INR Fibrinogen dRVVT Confirm Interp Factor V Activity POC ABG pH POC ABG pCO2 POC ABG pO2 ABG pO2 ABG HCO3 ABG Base Excess ABG Hemoglobin Oxyhemoglobin Sodium Potassium Chloride Carbon Dioxide BUN Creatinine Glucose POC Glucose 163 H Lactic Acid Calcium Phosphorus Magnesium Direct Bilirubin AST ALT Alkaline Phosphatase Lactate Dehydrogenase Troponin T C-Reactive Protein Total Protein Albumin Prealbumin Triglycerides Cholesterol LDL Cholesterol Direct HDL Cholesterol Urine pH Urine WBC (Auto) Urine Creatinine 54.8 H Urine Total Protein Fluid Total Protein Vancomycin Trough 2.3 L Rheumatoid Factor Complement C4 Miscellaneous Test Crossmatch 09/21/16 09/21/16 09/22/16 16:51 23:17 06:27 WBC RBC Hgb Hct MCV MCH MCHC RDW Plt Count Lymph % (Auto) [place] % (Auto) Lymph # [place] # Baso # Seg Neutrophils % Seg Neuts % (Manual) Lymphocytes % (Manual) Monocytes % (Manual) Eosinophils % (Manual) Basophils % (Manual) Nucleated RBC % Seg Neutrophils # Seg Neutrophils # Man Lymphocytes # (Manual) Monocytes # (Manual) Eosinophils # (Manual) Basophils # (Manual) PT INR Fibrinogen dRVVT Confirm Interp Factor V Activity POC ABG pH POC ABG pCO2 POC ABG pO2 ABG pO2 ABG HCO3 ABG Base Excess ABG Hemoglobin Oxyhemoglobin Sodium Potassium Chloride Carbon Dioxide BUN Creatinine Glucose POC Glucose 206 H 114 H 115 H Lactic Acid Calcium Phosphorus Magnesium Direct Bilirubin AST ALT Alkaline Phosphatase Lactate Dehydrogenase Troponin T C-Reactive Protein Total Protein Albumin Prealbumin Triglycerides Cholesterol LDL Cholesterol Direct HDL Cholesterol Urine pH Urine WBC (Auto) Urine Creatinine Urine Total Protein Fluid Total Protein Vancomycin Trough Rheumatoid Factor Complement C4 Miscellaneous Test Crossmatch 09/22/16 09/22/16 09/22/16 07:50 07:50 12:00 WBC 17.8 H RBC 3.04 L Hgb 8.0 L Hct 24.7 L MCV MCH 26 L MCHC RDW 21.6 H Plt Count Lymph % (Auto) [place] % (Auto) Lymph # [place] # Baso # Seg Neutrophils % Seg Neuts % (Manual) Lymphocytes % (Manual) Monocytes % (Manual) Eosinophils % (Manual) Basophils % (Manual) Nucleated RBC % Seg Neutrophils # Seg Neutrophils # Man Lymphocytes # (Manual) Monocytes # (Manual) Eosinophils # (Manual) Basophils # (Manual) PT INR Fibrinogen dRVVT Confirm Interp Factor V Activity POC ABG pH POC ABG pCO2 POC ABG pO2 ABG pO2 ABG HCO3 ABG Base Excess ABG Hemoglobin Oxyhemoglobin Sodium 150 H Potassium Chloride 118.2 H Carbon Dioxide 14 L BUN 111 H Creatinine 3.7 H Glucose 157 H POC Glucose 183 H Lactic Acid Calcium Phosphorus Magnesium Direct Bilirubin AST ALT Alkaline Phosphatase Lactate Dehydrogenase Troponin T C-Reactive Protein Total Protein Albumin Prealbumin Triglycerides Cholesterol LDL Cholesterol Direct HDL Cholesterol Urine pH Urine WBC (Auto) Urine Creatinine Urine Total Protein Fluid Total Protein Vancomycin Trough Rheumatoid Factor Complement C4 Miscellaneous Test Crossmatch 09/22/16 09/22/1609/23/17 17:29 23:10 05:00 WBC 19.2 H RBC 3.13 L Hgb 8.0 L Hct 25.2 L MCV MCH 26 L MCHC RDW 22.1 H Plt Count Lymph % (Auto) [place] % (Auto) Lymph # [place] # Baso # Seg Neutrophils % Seg Neuts % (Manual) 92.0 H Lymphocytes % (Manual) 3.0 L Monocytes % (Manual) Eosinophils % (Manual) Basophils % (Manual) Nucleated RBC % Seg Neutrophils # Seg Neutrophils # Man 17.7 H Lymphocytes # (Manual) 0.6 L Monocytes # (Manual) Eosinophils # (Manual) Basophils # (Manual) PT INR Fibrinogen dRVVT Confirm Interp Factor V Activity POC ABG pH POC ABG pCO2 POC ABG pO2 ABG pO2 ABG HCO3 ABG Base Excess ABG Hemoglobin Oxyhemoglobin Sodium Potassium Chloride Carbon Dioxide BUN Creatinine Glucose POC Glucose 197 H 169 H Lactic Acid Calcium Phosphorus Magnesium Direct Bilirubin AST ALT Alkaline Phosphatase Lactate Dehydrogenase Troponin T C-Reactive Protein Total Protein Albumin Prealbumin Triglycerides Cholesterol LDL Cholesterol Direct HDL Cholesterol Urine pH Urine WBC (Auto) Urine Creatinine Urine Total Protein Fluid Total Protein Vancomycin Trough Rheumatoid Factor Complement C4 Miscellaneous Test Crossmatch 09/23/16 09/23/16 09/23/16 05:00 05:00 05:10 WBC RBC Hgb Hct MCV MCH MCHC RDW Plt Count Lymph % (Auto) [place] % (Auto) Lymph # [place] # Baso # Seg Neutrophils % Seg Neuts % (Manual) Lymphocytes % (Manual) Monocytes % (Manual) Eosinophils % (Manual) Basophils % (Manual) Nucleated RBC % Seg Neutrophils # Seg Neutrophils # Man Lymphocytes # (Manual) Monocytes # (Manual) Eosinophils # (Manual) Basophils # (Manual) PT INR Fibrinogen dRVVT Confirm Interp Factor V Activity POC ABG pH POC ABG pCO2 POC ABG pO2 ABG pO2 ABG HCO3 ABG Base Excess ABG Hemoglobin Oxyhemoglobin Sodium 147 H Potassium 3.2 L Chloride 115.7 H Carbon Dioxide 13 L BUN 111 H Creatinine 3.8 H Glucose 194 H POC Glucose 188 H Lactic Acid Calcium 7.3 L D Phosphorus Magnesium Direct Bilirubin AST ALT Alkaline Phosphatase Lactate Dehydrogenase Troponin T C-Reactive Protein 3.20 H Total Protein Albumin Prealbumin Triglycerides Cholesterol LDL Cholesterol Direct HDL Cholesterol Urine pH Urine WBC (Auto) Urine Creatinine Urine Total Protein Fluid Total Protein Vancomycin Trough Rheumatoid Factor Complement C4 Miscellaneous Test Crossmatch 09/23/16 09/23/16 09/23/16 11:37 12:29 18:01 WBC RBC Hgb Hct MCV MCH MCHC RDW Plt Count Lymph % (Auto) [place] % (Auto) Lymph # [place] # Baso # Seg Neutrophils % Seg Neuts % (Manual) Lymphocytes % (Manual) Monocytes % (Manual) Eosinophils % (Manual) Basophils % (Manual) Nucleated RBC % Seg Neutrophils # Seg Neutrophils # Man Lymphocytes # (Manual) Monocytes # (Manual) Eosinophils # (Manual) Basophils # (Manual) PT INR Fibrinogen dRVVT Confirm Interp Factor V Activity POC ABG pH POC ABG pCO2 18.9 L POC ABG pO2 143 H ABG pO2 ABG HCO3 ABG Base Excess ABG Hemoglobin Oxyhemoglobin Sodium Potassium Chloride Carbon Dioxide BUN Creatinine Glucose POC Glucose 153 H 108 H Lactic Acid Calcium Phosphorus Magnesium Direct Bilirubin AST ALT Alkaline Phosphatase Lactate Dehydrogenase Troponin T C-Reactive Protein Total Protein Albumin Prealbumin Triglycerides Cholesterol LDL Cholesterol Direct HDL Cholesterol Urine pH Urine WBC (Auto) Urine Creatinine Urine Total Protein Fluid Total Protein Vancomycin Trough Rheumatoid Factor Complement C4 Miscellaneous Test Crossmatch 09/23/16 09/23/16 09/24/16 21:19 23:43 05:16 WBC RBC Hgb Hct MCV MCH MCHC RDW Plt Count Lymph % (Auto) [place] % (Auto) Lymph # [place] # Baso # Seg Neutrophils % Seg Neuts % (Manual) Lymphocytes % (Manual) Monocytes % (Manual) Eosinophils % (Manual) Basophils % (Manual) Nucleated RBC % Seg Neutrophils # Seg Neutrophils # Man Lymphocytes # (Manual) Monocytes # (Manual) Eosinophils # (Manual) Basophils # (Manual) PT INR Fibrinogen dRVVT Confirm Interp Factor V Activity POC ABG pH POC ABG pCO2 17.3 L POC ABG pO2 112 H ABG pO2 ABG HCO3 ABG Base Excess ABG Hemoglobin Oxyhemoglobin Sodium Potassium Chloride Carbon Dioxide BUN Creatinine Glucose POC Glucose 143 H 164 H Lactic Acid Calcium Phosphorus Magnesium Direct Bilirubin AST ALT Alkaline Phosphatase Lactate Dehydrogenase Troponin T C-Reactive Protein Total Protein Albumin Prealbumin Triglycerides Cholesterol LDL Cholesterol Direct HDL Cholesterol Urine pH Urine WBC (Auto) Urine Creatinine Urine Total Protein Fluid Total Protein Vancomycin Trough Rheumatoid Factor Complement C4 Miscellaneous Test Crossmatch 09/24/16 09/24/16 09/24/16 05:21 11:58 17:06 WBC RBC Hgb Hct MCV MCH MCHC RDW Plt Count Lymph % (Auto) [place] % (Auto) Lymph # [place] # Baso # Seg Neutrophils % Seg Neuts % (Manual) Lymphocytes % (Manual) Monocytes % (Manual) Eosinophils % (Manual) Basophils % (Manual) Nucleated RBC % Seg Neutrophils # Seg Neutrophils # Man Lymphocytes # (Manual) Monocytes # (Manual) Eosinophils # (Manual) Basophils # (Manual) PT INR Fibrinogen dRVVT Confirm Interp Factor V Activity POC ABG pH POC ABG pCO2 POC ABG pO2 ABG pO2 ABG HCO3 ABG Base Excess ABG Hemoglobin Oxyhemoglobin Sodium Potassium Chloride Carbon Dioxide 10 L BUN 103 H Creatinine 4.3 H Glucose 163 H POC Glucose 173 H 167 H Lactic Acid Calcium 6.5 L Phosphorus Magnesium Direct Bilirubin AST ALT Alkaline Phosphatase Lactate Dehydrogenase Troponin T C-Reactive Protein Total Protein Albumin Prealbumin Triglycerides Cholesterol LDL Cholesterol Direct HDL Cholesterol Urine pH Urine WBC (Auto) Urine Creatinine Urine Total Protein Fluid Total Protein Vancomycin Trough Rheumatoid Factor Complement C4 Miscellaneous Test Crossmatch 09/24/16 09/24/16 09/24/16 20:15 21:02 23:48 WBC RBC Hgb Hct MCV MCH MCHC RDW Plt Count Lymph % (Auto) [place] % (Auto) Lymph # [place] # Baso # Seg Neutrophils % Seg Neuts % (Manual) Lymphocytes % (Manual) Monocytes % (Manual) Eosinophils % (Manual) Basophils % (Manual) Nucleated RBC % Seg Neutrophils # Seg Neutrophils # Man Lymphocytes # (Manual) Monocytes # (Manual) Eosinophils # (Manual) Basophils # (Manual) PT INR Fibrinogen dRVVT Confirm Interp Factor V Activity POC ABG pH 7.288 L POC ABG pCO2 30.2 L 21.5 L POC ABG pO2 32 L 39 L ABG pO2 ABG HCO3 ABG Base Excess ABG Hemoglobin Oxyhemoglobin Sodium Potassium Chloride Carbon Dioxide BUN Creatinine Glucose POC Glucose 109 H Lactic Acid Calcium Phosphorus Magnesium Direct Bilirubin AST ALT Alkaline Phosphatase Lactate Dehydrogenase Troponin T C-Reactive Protein Total Protein Albumin Prealbumin Triglycerides Cholesterol LDL Cholesterol Direct HDL Cholesterol Urine pH Urine WBC (Auto) Urine Creatinine Urine Total Protein Fluid Total Protein Vancomycin Trough Rheumatoid Factor Complement C4 Miscellaneous Test Crossmatch 09/25/16 09/25/16 09/25/16 04:20 04:20 04:20 WBC RBC 2.58 L Hgb 7.0 L Hct 21.0 L MCV MCH 27 L MCHC RDW 23.8 H Plt Count Lymph % (Auto) [place] % (Auto) Lymph # [place] # Baso # Seg Neutrophils % Seg Neuts % (Manual) Lymphocytes % (Manual) 12.0 L Monocytes % (Manual) Eosinophils % (Manual) 7.0 H Basophils % (Manual) 2.0 H Nucleated RBC % Seg Neutrophils # Seg Neutrophils # Man Lymphocytes # (Manual) 0.9 L Monocytes # (Manual) Eosinophils # (Manual) 0.5 H Basophils # (Manual) PT INR Fibrinogen dRVVT Confirm Interp Factor V Activity POC ABG pH POC ABG pCO2 POC ABG pO2 ABG pO2 ABG HCO3 ABG Base Excess ABG Hemoglobin Oxyhemoglobin Sodium Potassium Chloride Carbon Dioxide 15 L BUN 72 H Creatinine 3.8 H Glucose POC Glucose Lactic Acid Calcium 6.0 L Phosphorus 4.60 H Magnesium 1.60 L Direct Bilirubin AST ALT Alkaline Phosphatase Lactate Dehydrogenase Troponin T C-Reactive Protein Total Protein Albumin Prealbumin Triglycerides Cholesterol LDL Cholesterol Direct HDL Cholesterol Urine pH Urine WBC (Auto) Urine Creatinine Urine Total Protein Fluid Total Protein Vancomycin Trough Rheumatoid Factor Complement C4 Miscellaneous Test Crossmatch 09/25/16 09/25/16 09/25/16 04:57 08:02 10:30 WBC RBC Hgb Hct MCV MCH MCHC RDW Plt Count Lymph % (Auto) [place] % (Auto) Lymph # [place] # Baso # Seg Neutrophils % Seg Neuts % (Manual) Lymphocytes % (Manual) Monocytes % (Manual) Eosinophils % (Manual) Basophils % (Manual) Nucleated RBC % Seg Neutrophils # Seg Neutrophils # Man Lymphocytes # (Manual) Monocytes # (Manual) Eosinophils # (Manual) Basophils # (Manual) PT INR Fibrinogen dRVVT Confirm Interp Factor V Activity POC ABG pH POC ABG pCO2 24.7 L POC ABG pO2 152 H ABG pO2 ABG HCO3 ABG Base Excess ABG Hemoglobin Oxyhemoglobin Sodium Potassium Chloride Carbon Dioxide BUN Creatinine Glucose POC Glucose 113 H Lactic Acid Calcium Phosphorus Magnesium Direct Bilirubin AST ALT Alkaline Phosphatase Lactate Dehydrogenase Troponin T C-Reactive Protein Total Protein Albumin Prealbumin Triglycerides Cholesterol LDL Cholesterol Direct HDL Cholesterol Urine pH Urine WBC (Auto) Urine Creatinine Urine Total Protein Fluid Total Protein Vancomycin Trough Rheumatoid Factor Complement C4 Miscellaneous Test Crossmatch See Detail 09/25/16 09/25/16 09/25/16 12:05 17:44 23:47 WBC RBC Hgb Hct MCV MCH MCHC RDW Plt Count Lymph % (Auto) [place] % (Auto) Lymph # [place] # Baso # Seg Neutrophils % Seg Neuts % (Manual) Lymphocytes % (Manual) Monocytes % (Manual) Eosinophils % (Manual) Basophils % (Manual) Nucleated RBC % Seg Neutrophils # Seg Neutrophils # Man Lymphocytes # (Manual) Monocytes # (Manual) Eosinophils # (Manual) Basophils # (Manual) PT INR Fibrinogen dRVVT Confirm Interp Factor V Activity POC ABG pH POC ABG pCO2 POC ABG pO2 ABG pO2 ABG HCO3 ABG Base Excess ABG Hemoglobin Oxyhemoglobin Sodium Potassium Chloride Carbon Dioxide BUN Creatinine Glucose POC Glucose 117 H 119 H 150 H Lactic Acid Calcium Phosphorus Magnesium Direct Bilirubin AST ALT Alkaline Phosphatase Lactate Dehydrogenase Troponin T C-Reactive Protein Total Protein Albumin Prealbumin Triglycerides Cholesterol LDL Cholesterol Direct HDL Cholesterol Urine pH Urine WBC (Auto) Urine Creatinine Urine Total Protein Fluid Total Protein Vancomycin Trough Rheumatoid Factor Complement C4 Miscellaneous Test Crossmatch 09/26/16 09/26/16 09/26/16 04:25 04:25 04:25 WBC RBC 2.65 L Hgb 7.4 L Hct 21.6 L MCV MCH MCHC RDW 22.5 H Plt Count Lymph % (Auto) [place] % (Auto) Lymph # [place] # Baso # Seg Neutrophils % Seg Neuts % (Manual) Lymphocytes % (Manual) 6.0 L Monocytes % (Manual) Eosinophils % (Manual) 11.0 H Basophils % (Manual) Nucleated RBC % Seg Neutrophils # Seg Neutrophils # Man Lymphocytes # (Manual) 0.4 L Monocytes # (Manual) Eosinophils # (Manual) 0.6 H Basophils # (Manual) PT INR Fibrinogen dRVVT Confirm Interp Factor V Activity POC ABG pH POC ABG pCO2 POC ABG pO2 ABG pO2 ABG HCO3 ABG Base Excess ABG Hemoglobin Oxyhemoglobin Sodium Potassium Chloride 97.0 L Carbon Dioxide 19 L BUN 43 H Creatinine 2.6 H Glucose 130 H POC Glucose Lactic Acid 4.40 H* Calcium 6.7 L Phosphorus Magnesium Direct Bilirubin AST ALT Alkaline Phosphatase Lactate Dehydrogenase Troponin T C-Reactive Protein Total Protein Albumin Prealbumin Triglycerides Cholesterol LDL Cholesterol Direct HDL Cholesterol Urine pH Urine WBC (Auto) Urine Creatinine Urine Total Protein Fluid Total Protein Vancomycin Trough Rheumatoid Factor Complement C4 Miscellaneous Test Crossmatch 09/26/16 09/26/16 09/26/16 05:20 11:44 12:12 WBC RBC Hgb Hct MCV MCH MCHC RDW Plt Count Lymph % (Auto) [place] % (Auto) Lymph # [place] # Baso # Seg Neutrophils % Seg Neuts % (Manual) Lymphocytes % (Manual) Monocytes % (Manual) Eosinophils % (Manual) Basophils % (Manual) Nucleated RBC % Seg Neutrophils # Seg Neutrophils # Man Lymphocytes # (Manual) Monocytes # (Manual) Eosinophils # (Manual) Basophils # (Manual) PT INR Fibrinogen dRVVT Confirm Interp Factor V Activity POC ABG pH POC ABG pCO2 27.0 L POC ABG pO2 69 L ABG pO2 ABG HCO3 ABG Base Excess ABG Hemoglobin Oxyhemoglobin Sodium Potassium Chloride Carbon Dioxide BUN Creatinine Glucose POC Glucose 121 H 128 H Lactic Acid Calcium Phosphorus Magnesium Direct Bilirubin AST ALT Alkaline Phosphatase Lactate Dehydrogenase Troponin T C-Reactive Protein Total Protein Albumin Prealbumin Triglycerides Cholesterol LDL Cholesterol Direct HDL Cholesterol Urine pH Urine WBC (Auto) Urine Creatinine Urine Total Protein Fluid Total Protein Vancomycin Trough Rheumatoid Factor Complement C4 Miscellaneous Test Crossmatch 09/26/16 09/26/16 09/27/16 18:31 23:40 08:20 WBC RBC Hgb Hct MCV MCH MCHC RDW Plt Count Lymph % (Auto) [place] % (Auto) Lymph # [place] # Baso # Seg Neutrophils % Seg Neuts % (Manual) Lymphocytes % (Manual) Monocytes % (Manual) Eosinophils % (Manual) Basophils % (Manual) Nucleated RBC % Seg Neutrophils # Seg Neutrophils # Man Lymphocytes # (Manual) Monocytes # (Manual) Eosinophils # (Manual) Basophils # (Manual) PT INR Fibrinogen dRVVT Confirm Interp Factor V Activity POC ABG pH POC ABG pCO2 POC ABG pO2 ABG pO2 ABG HCO3 ABG Base Excess ABG Hemoglobin Oxyhemoglobin Sodium Potassium Chloride Carbon Dioxide BUN Creatinine Glucose POC Glucose 120 H 133 H Lactic Acid 4.10 H* Calcium Phosphorus Magnesium Direct Bilirubin AST ALT Alkaline Phosphatase Lactate Dehydrogenase Troponin T C-Reactive Protein Total Protein Albumin Prealbumin Triglycerides Cholesterol LDL Cholesterol Direct HDL Cholesterol Urine pH Urine WBC (Auto) Urine Creatinine Urine Total Protein Fluid Total Protein Vancomycin Trough Rheumatoid Factor Complement C4 Miscellaneous Test Crossmatch 09/27/16 09/27/16 09/27/16 11:23 15:00 18:15 WBC RBC Hgb Hct MCV MCH MCHC RDW Plt Count Lymph % (Auto) [place] % (Auto) Lymph # [place] # Baso # Seg Neutrophils % Seg Neuts % (Manual) Lymphocytes % (Manual) Monocytes % (Manual) Eosinophils % (Manual) Basophils % (Manual) Nucleated RBC % Seg Neutrophils # Seg Neutrophils # Man Lymphocytes # (Manual) Monocytes # (Manual) Eosinophils # (Manual) Basophils # (Manual) PT INR Fibrinogen dRVVT Confirm Interp Factor V Activity POC ABG pH 7.459 H POC ABG pCO2 27.1 L POC ABG pO2 140 H ABG pO2 ABG HCO3 ABG Base Excess ABG Hemoglobin Oxyhemoglobin Sodium Potassium Chloride Carbon Dioxide BUN Creatinine Glucose POC Glucose 114 H 127 H Lactic Acid Calcium Phosphorus Magnesium Direct Bilirubin AST ALT Alkaline Phosphatase Lactate Dehydrogenase Troponin T C-Reactive Protein Total Protein Albumin Prealbumin Triglycerides Cholesterol LDL Cholesterol Direct HDL Cholesterol Urine pH Urine WBC (Auto) Urine Creatinine Urine Total Protein Fluid Total Protein Vancomycin Trough Rheumatoid Factor Complement C4 Miscellaneous Test Crossmatch 09/27/16 09/27/16 09/28/16 Unknown Unknown 03:45 WBC RBC 2.49 L Hgb 6.8 L Hct 20.7 L MCV MCH 27 L MCHC RDW 22.1 H Plt Count Lymph % (Auto) [place] % (Auto) Lymph # [place] # Baso # Seg Neutrophils % Seg Neuts % (Manual) 32.0 L Lymphocytes % (Manual) 12.0 L Monocytes % (Manual) 11.0 H Eosinophils % (Manual) 10.0 H Basophils % (Manual) Nucleated RBC % Seg Neutrophils # Seg Neutrophils # Man Lymphocytes # (Manual) 1.0 L Monocytes # (Manual) 0.9 H Eosinophils # (Manual) 0.8 H Basophils # (Manual) PT INR Fibrinogen dRVVT Confirm Interp Factor V Activity POC ABG pH POC ABG pCO2 POC ABG pO2 ABG pO2 ABG HCO3 ABG Base Excess ABG Hemoglobin Oxyhemoglobin Sodium 135 L 135 L Potassium 3.5 L Chloride 93.6 L 94.4 L Carbon Dioxide 17 L 21 L BUN 45 H 28 H Creatinine 3.3 H 2.5 H Glucose 106 H POC Glucose Lactic Acid Calcium 7.3 L 7.1 L Phosphorus Magnesium Direct Bilirubin AST ALT Alkaline Phosphatase Lactate Dehydrogenase Troponin T C-Reactive Protein Total Protein Albumin Prealbumin Triglycerides Cholesterol LDL Cholesterol Direct HDL Cholesterol Urine pH Urine WBC (Auto) Urine Creatinine Urine Total Protein Fluid Total Protein Vancomycin Trough Rheumatoid Factor Complement C4 Miscellaneous Test Crossmatch 09/28/16 09/28/16 09/28/16 03:45 07:25 11:58 WBC 13.3 H RBC 3.01 L Hgb 8.4 L Hct 25.0 L MCV MCH MCHC RDW 20.5 H Plt Count 128 L Lymph % (Auto) [place] % (Auto) Lymph # [place] # Baso # Seg Neutrophils % Seg Neuts % (Manual) Lymphocytes % (Manual) 7.0 L Monocytes % (Manual) Eosinophils % (Manual) 6.0 H Basophils % (Manual) Nucleated RBC % Seg Neutrophils # Seg Neutrophils # Man Lymphocytes # (Manual) 0.9 L Monocytes # (Manual) Eosinophils # (Manual) 0.8 H Basophils # (Manual) PT INR Fibrinogen dRVVT Confirm Interp Factor V Activity POC ABG pH POC ABG pCO2 POC ABG pO2 ABG pO2 ABG HCO3 ABG Base Excess ABG Hemoglobin Oxyhemoglobin Sodium Potassium Chloride Carbon Dioxide BUN Creatinine Glucose POC Glucose 121 H Lactic Acid 4.50 H* Calcium Phosphorus Magnesium Direct Bilirubin AST ALT Alkaline Phosphatase Lactate Dehydrogenase Troponin T C-Reactive Protein Total Protein Albumin Prealbumin Triglycerides Cholesterol LDL Cholesterol Direct HDL Cholesterol Urine pH Urine WBC (Auto) Urine Creatinine Urine Total Protein Fluid Total Protein Vancomycin Trough Rheumatoid Factor Complement C4 Miscellaneous Test Crossmatch 09/29/16 09/29/16 09/29/16 06:45 06:45 06:45 WBC 14.9 H RBC 2.74 L Hgb 7.6 L Hct 23.2 L MCV MCH MCHC RDW 20.5 H Plt Count 81 L Lymph % (Auto) [place] % (Auto) Lymph # [place] # Baso # Seg Neutrophils % Seg Neuts % (Manual) 81.0 H Lymphocytes % (Manual) 4.0 L Monocytes % (Manual) Eosinophils % (Manual) Basophils % (Manual) Nucleated RBC % Seg Neutrophils # Seg Neutrophils # Man 12.1 H Lymphocytes # (Manual) 0.6 L Monocytes # (Manual) Eosinophils # (Manual) Basophils # (Manual) PT INR Fibrinogen dRVVT Confirm Interp Factor V Activity POC ABG pH POC ABG pCO2 POC ABG pO2 ABG pO2 ABG HCO3 ABG Base Excess ABG Hemoglobin Oxyhemoglobin Sodium 133 L Potassium 3.4 L Chloride 92.5 L Carbon Dioxide 21 L BUN 33 H Creatinine 3.0 H Glucose POC Glucose Lactic Acid Calcium 6.6 L Phosphorus Magnesium 1.40 L Direct Bilirubin 0.9 H AST ALT Alkaline Phosphatase Lactate Dehydrogenase Troponin T C-Reactive Protein Total Protein 4.3 L Albumin 1.3 L Prealbumin Triglycerides Cholesterol LDL Cholesterol Direct HDL Cholesterol Urine pH Urine WBC (Auto) Urine Creatinine Urine Total Protein Fluid Total Protein Vancomycin Trough Rheumatoid Factor Complement C4 Miscellaneous Test Crossmatch 09/29/16 09/29/16 09/30/16 17:52 20:12 00:07 WBC RBC Hgb Hct MCV MCH MCHC RDW Plt Count Lymph % (Auto) [place] % (Auto) Lymph # [place] # Baso # Seg Neutrophils % Seg Neuts % (Manual) Lymphocytes % (Manual) Monocytes % (Manual) Eosinophils % (Manual) Basophils % (Manual) Nucleated RBC % Seg Neutrophils # Seg Neutrophils # Man Lymphocytes # (Manual) Monocytes # (Manual) Eosinophils # (Manual) Basophils # (Manual) PT INR Fibrinogen dRVVT Confirm Interp Factor V Activity POC ABG pH POC ABG pCO2 POC ABG pO2 ABG pO2 ABG HCO3 ABG Base Excess ABG Hemoglobin Oxyhemoglobin Sodium Potassium Chloride Carbon Dioxide BUN Creatinine Glucose POC Glucose 50 L 51 L Lactic Acid Calcium Phosphorus Magnesium Direct Bilirubin AST ALT Alkaline Phosphatase Lactate Dehydrogenase Troponin T 0.204 H* C-Reactive Protein Total Protein Albumin Prealbumin Triglycerides Cholesterol 31 L LDL Cholesterol Direct 4 L HDL Cholesterol 3 L Urine pH Urine WBC (Auto) Urine Creatinine Urine Total Protein Fluid Total Protein Vancomycin Trough Rheumatoid Factor Complement C4 Miscellaneous Test Crossmatch 09/30/16 09/30/16 09/30/16 01:30 05:15 06:10 WBC RBC Hgb Hct MCV MCH MCHC RDW Plt Count Lymph % (Auto) [place] % (Auto) Lymph # [place] # Baso # Seg Neutrophils % Seg Neuts % (Manual) Lymphocytes % (Manual) Monocytes % (Manual) Eosinophils % (Manual) Basophils % (Manual) Nucleated RBC % Seg Neutrophils # Seg Neutrophils # Man Lymphocytes # (Manual) Monocytes # (Manual) Eosinophils # (Manual) Basophils # (Manual) PT INR Fibrinogen dRVVT Confirm Interp Factor V Activity POC ABG pH POC ABG pCO2 POC ABG pO2 ABG pO2 ABG HCO3 ABG Base Excess ABG Hemoglobin Oxyhemoglobin Sodium 133 L Potassium 3.2 L Chloride 93.2 L Carbon Dioxide 19 L BUN 36 H Creatinine 3.2 H Glucose 104 H POC Glucose 167 H 146 H Lactic Acid Calcium 6.4 L Phosphorus Magnesium 1.60 L Direct Bilirubin AST ALT Alkaline Phosphatase Lactate Dehydrogenase Troponin T C-Reactive Protein Total Protein Albumin Prealbumin Triglycerides Cholesterol LDL Cholesterol Direct HDL Cholesterol Urine pH Urine WBC (Auto) Urine Creatinine Urine Total Protein Fluid Total Protein Vancomycin Trough Rheumatoid Factor Complement C4 Miscellaneous Test Crossmatch 09/30/16 09/30/16 09/30/16 11:26 13:39 18:38 WBC RBC Hgb Hct MCV MCH MCHC RDW Plt Count Lymph % (Auto) [place] % (Auto) Lymph # [place] # Baso # Seg Neutrophils % Seg Neuts % (Manual) Lymphocytes % (Manual) Monocytes % (Manual) Eosinophils % (Manual) Basophils % (Manual) Nucleated RBC % Seg Neutrophils # Seg Neutrophils # Man Lymphocytes # (Manual) Monocytes # (Manual) Eosinophils # (Manual) Basophils # (Manual) PT INR Fibrinogen dRVVT Confirm Interp Factor V Activity POC ABG pH 7.479 H POC ABG pCO2 29.8 L POC ABG pO2 117 H ABG pO2 ABG HCO3 ABG Base Excess ABG Hemoglobin Oxyhemoglobin Sodium Potassium Chloride Carbon Dioxide BUN Creatinine Glucose POC Glucose 140 H 122 H Lactic Acid Calcium Phosphorus Magnesium Direct Bilirubin AST ALT Alkaline Phosphatase Lactate Dehydrogenase Troponin T C-Reactive Protein Total Protein Albumin Prealbumin Triglycerides Cholesterol LDL Cholesterol Direct HDL Cholesterol Urine pH Urine WBC (Auto) Urine Creatinine Urine Total Protein Fluid Total Protein Vancomycin Trough Rheumatoid Factor Complement C4 Miscellaneous Test Crossmatch 10/01/16 10/01/16 10/01/16 06:00 06:00 12:37 WBC 12.6 H RBC 2.75 L Hgb 7.3 L Hct 23.3 L MCV MCH 27 L MCHC RDW 20.6 H Plt Count 72 L Lymph % (Auto) [place] % (Auto) Lymph # [place] # Baso # Seg Neutrophils % Seg Neuts % (Manual) 31.0 L Lymphocytes % (Manual) 8.0 L Monocytes % (Manual) Eosinophils % (Manual) Basophils % (Manual) Nucleated RBC % 3.0 H Seg Neutrophils # Seg Neutrophils # Man Lymphocytes # (Manual) 1.0 L Monocytes # (Manual) Eosinophils # (Manual) Basophils # (Manual) PT INR Fibrinogen dRVVT Confirm Interp Factor V Activity POC ABG pH POC ABG pCO2 POC ABG pO2 ABG pO2 ABG HCO3 ABG Base Excess ABG Hemoglobin Oxyhemoglobin Sodium 127 L Potassium Chloride 86.8 L Carbon Dioxide 20 L BUN 42 H Creatinine 3.5 H Glucose POC Glucose 65 L Lactic Acid Calcium 7.0 L Phosphorus Magnesium Direct Bilirubin AST ALT Alkaline Phosphatase Lactate Dehydrogenase Troponin T C-Reactive Protein Total Protein Albumin Prealbumin Triglycerides Cholesterol LDL Cholesterol Direct HDL Cholesterol Urine pH Urine WBC (Auto) Urine Creatinine Urine Total Protein Fluid Total Protein Vancomycin Trough Rheumatoid Factor Complement C4 Miscellaneous Test Crossmatch 10/01/16 10/01/16 10/02/16 17:39 23:32 00:59 WBC RBC Hgb Hct MCV MCH MCHC RDW Plt Count Lymph % (Auto) [place] % (Auto) Lymph # [place] # Baso # Seg Neutrophils % Seg Neuts % (Manual) Lymphocytes % (Manual) Monocytes % (Manual) Eosinophils % (Manual) Basophils % (Manual) Nucleated RBC % Seg Neutrophils # Seg Neutrophils # Man Lymphocytes # (Manual) Monocytes # (Manual) Eosinophils # (Manual) Basophils # (Manual) PT INR Fibrinogen dRVVT Confirm Interp Factor V Activity POC ABG pH POC ABG pCO2 POC ABG pO2 ABG pO2 ABG HCO3 ABG Base Excess ABG Hemoglobin Oxyhemoglobin Sodium Potassium Chloride Carbon Dioxide BUN Creatinine Glucose POC Glucose 107 H 52 L 145 H Lactic Acid Calcium Phosphorus Magnesium Direct Bilirubin AST ALT Alkaline Phosphatase Lactate Dehydrogenase Troponin T C-Reactive Protein Total Protein Albumin Prealbumin Triglycerides Cholesterol LDL Cholesterol Direct HDL Cholesterol Urine pH Urine WBC (Auto) Urine Creatinine Urine Total Protein Fluid Total Protein Vancomycin Trough Rheumatoid Factor Complement C4 Miscellaneous Test Crossmatch 10/02/16 10/02/16 10/02/16 10:30 10:50 10:50 WBC 14.7 H RBC 2.76 L Hgb 7.4 L Hct 23.6 L MCV MCH 27 L MCHC RDW 20.2 H Plt Count 79 L Lymph % (Auto) [place] % (Auto) Lymph # [place] # Baso # Seg Neutrophils % Seg Neuts % (Manual) 86.0 H Lymphocytes % (Manual) 6.0 L Monocytes % (Manual) Eosinophils % (Manual) Basophils % (Manual) Nucleated RBC % Seg Neutrophils # Seg Neutrophils # Man 12.6 H Lymphocytes # (Manual) 0.9 L Monocytes # (Manual) Eosinophils # (Manual) Basophils # (Manual) PT INR Fibrinogen dRVVT Confirm Interp Factor V Activity POC ABG pH 7.486 H POC ABG pCO2 30.1 L POC ABG pO2 108 H ABG pO2 ABG HCO3 ABG Base Excess ABG Hemoglobin Oxyhemoglobin Sodium 131 L Potassium 3.4 L Chloride 89.9 L Carbon Dioxide BUN 26 H Creatinine 2.6 H Glucose POC Glucose Lactic Acid Calcium 7.0 L Phosphorus Magnesium Direct Bilirubin AST ALT Alkaline Phosphatase Lactate Dehydrogenase Troponin T C-Reactive Protein Total Protein Albumin Prealbumin Triglycerides Cholesterol LDL Cholesterol Direct HDL Cholesterol Urine pH Urine WBC (Auto) Urine Creatinine Urine Total Protein Fluid Total Protein Vancomycin Trough Rheumatoid Factor Complement C4 Miscellaneous Test Crossmatch 10/02/16 10/03/16 10/03/16 23:45 00:45 05:10 WBC 12.9 H RBC 2.77 L Hgb 7.6 L Hct 23.7 L MCV MCH 27 L MCHC RDW 19.7 H Plt Count 89 L Lymph % (Auto) [place] % (Auto) Lymph # [place] # Baso # Seg Neutrophils % Seg Neuts % (Manual) Lymphocytes % (Manual) 8.0 L Monocytes % (Manual) Eosinophils % (Manual) Basophils % (Manual) Nucleated RBC % Seg Neutrophils # 11.9 H Seg Neutrophils # Man Lymphocytes # (Manual) 1.0 L Monocytes # (Manual) Eosinophils # (Manual) Basophils # (Manual) PT INR Fibrinogen dRVVT Confirm Interp Factor V Activity POC ABG pH POC ABG pCO2 POC ABG pO2 ABG pO2 ABG HCO3 ABG Base Excess ABG Hemoglobin Oxyhemoglobin Sodium Potassium Chloride Carbon Dioxide BUN Creatinine Glucose POC Glucose 55 L 199 H Lactic Acid Calcium Phosphorus Magnesium Direct Bilirubin AST ALT Alkaline Phosphatase Lactate Dehydrogenase Troponin T C-Reactive Protein Total Protein Albumin Prealbumin Triglycerides Cholesterol LDL Cholesterol Direct HDL Cholesterol Urine pH Urine WBC (Auto) Urine Creatinine Urine Total Protein Fluid Total Protein Vancomycin Trough Rheumatoid Factor Complement C4 Miscellaneous Test Crossmatch 10/03/16 10/03/16 10/03/16 05:10 12:14 13:18 WBC RBC Hgb Hct MCV MCH MCHC RDW Plt Count Lymph % (Auto) [place] % (Auto) Lymph # [place] # Baso # Seg Neutrophils % Seg Neuts % (Manual) Lymphocytes % (Manual) Monocytes % (Manual) Eosinophils % (Manual) Basophils % (Manual) Nucleated RBC % Seg Neutrophils # Seg Neutrophils # Man Lymphocytes # (Manual) Monocytes # (Manual) Eosinophils # (Manual) Basophils # (Manual) PT INR Fibrinogen dRVVT Confirm Interp Factor V Activity POC ABG pH POC ABG pCO2 POC ABG pO2 ABG pO2 ABG HCO3 ABG Base Excess ABG Hemoglobin Oxyhemoglobin Sodium 129 L Potassium 3.3 L Chloride 88.8 L Carbon Dioxide 20 L BUN 29 H Creatinine 2.8 H Glucose POC Glucose 68 L 127 H Lactic Acid Calcium 7.2 L Phosphorus Magnesium Direct Bilirubin AST ALT Alkaline Phosphatase Lactate Dehydrogenase Troponin T C-Reactive Protein Total Protein Albumin Prealbumin Triglycerides Cholesterol LDL Cholesterol Direct HDL Cholesterol Urine pH Urine WBC (Auto) Urine Creatinine Urine Total Protein Fluid Total Protein Vancomycin Trough Rheumatoid Factor Complement C4 Miscellaneous Test Crossmatch 10/03/16 10/03/16 10/03/16 14:42 18:21 19:09 WBC RBC Hgb Hct MCV MCH MCHC RDW Plt Count Lymph % (Auto) [place] % (Auto) Lymph # [place] # Baso # Seg Neutrophils % Seg Neuts % (Manual) Lymphocytes % (Manual) Monocytes % (Manual) Eosinophils % (Manual) Basophils % (Manual) Nucleated RBC % Seg Neutrophils # Seg Neutrophils # Man Lymphocytes # (Manual) Monocytes # (Manual) Eosinophils # (Manual) Basophils # (Manual) PT INR Fibrinogen dRVVT Confirm Interp Factor V Activity POC ABG pH 7.499 H POC ABG pCO2 28.4 L POC ABG pO2 44 L ABG pO2 ABG HCO3 ABG Base Excess ABG Hemoglobin Oxyhemoglobin Sodium Potassium Chloride Carbon Dioxide BUN Creatinine Glucose POC Glucose 64 L 205 H Lactic Acid Calcium Phosphorus Magnesium Direct Bilirubin AST ALT Alkaline Phosphatase Lactate Dehydrogenase Troponin T C-Reactive Protein Total Protein Albumin Prealbumin Triglycerides Cholesterol LDL Cholesterol Direct HDL Cholesterol Urine pH Urine WBC (Auto) Urine Creatinine Urine Total Protein Fluid Total Protein Vancomycin Trough Rheumatoid Factor Complement C4 Miscellaneous Test Crossmatch 10/03/16 10/04/16 10/04/16 23:33 04:18 06:30 WBC RBC 2.54 L Hgb 7.1 L Hct 21.7 L MCV MCH MCHC RDW 19.5 H Plt Count 76 L Lymph % (Auto) [place] % (Auto) Lymph # [place] # Baso # Seg Neutrophils % Seg Neuts % (Manual) 88.0 H Lymphocytes % (Manual) 6.0 L Monocytes % (Manual) Eosinophils % (Manual) Basophils % (Manual) Nucleated RBC % Seg Neutrophils # Seg Neutrophils # Man 8.8 H Lymphocytes # (Manual) 0.6 L Monocytes # (Manual) Eosinophils # (Manual) Basophils # (Manual) PT INR Fibrinogen dRVVT Confirm Interp Factor V Activity POC ABG pH 7.461 H POC ABG pCO2 33.6 L POC ABG pO2 211 H ABG pO2 ABG HCO3 ABG Base Excess ABG Hemoglobin Oxyhemoglobin Sodium Potassium Chloride Carbon Dioxide BUN Creatinine Glucose POC Glucose 136 H Lactic Acid Calcium Phosphorus Magnesium Direct Bilirubin AST ALT Alkaline Phosphatase Lactate Dehydrogenase Troponin T C-Reactive Protein Total Protein Albumin Prealbumin Triglycerides Cholesterol LDL Cholesterol Direct HDL Cholesterol Urine pH Urine WBC (Auto) Urine Creatinine Urine Total Protein Fluid Total Protein Vancomycin Trough Rheumatoid Factor Complement C4 Miscellaneous Test Crossmatch 10/04/16 10/04/16 10/04/16 06:30 11:45 17:54 WBC RBC Hgb Hct MCV MCH MCHC RDW Plt Count Lymph % (Auto) [place] % (Auto) Lymph # [place] # Baso # Seg Neutrophils % Seg Neuts % (Manual) Lymphocytes % (Manual) Monocytes % (Manual) Eosinophils % (Manual) Basophils % (Manual) Nucleated RBC % Seg Neutrophils # Seg Neutrophils # Man Lymphocytes # (Manual) Monocytes # (Manual) Eosinophils # (Manual) Basophils # (Manual) PT INR Fibrinogen dRVVT Confirm Interp Factor V Activity POC ABG pH POC ABG pCO2 POC ABG pO2 ABG pO2 ABG HCO3 ABG Base Excess ABG Hemoglobin Oxyhemoglobin Sodium 128 L Potassium Chloride 87.4 L Carbon Dioxide 20 L BUN 34 H Creatinine 2.9 H Glucose 127 H POC Glucose 158 H 160 H Lactic Acid Calcium 7.4 L Phosphorus Magnesium Direct Bilirubin AST ALT Alkaline Phosphatase Lactate Dehydrogenase Troponin T C-Reactive Protein Total Protein Albumin Prealbumin Triglycerides Cholesterol LDL Cholesterol Direct HDL Cholesterol Urine pH Urine WBC (Auto) Urine Creatinine Urine Total Protein Fluid Total Protein Vancomycin Trough Rheumatoid Factor Complement C4 Miscellaneous Test Crossmatch 10/04/16 10/05/16 10/05/16 23:25 04:30 05:00 WBC RBC 2.64 L Hgb 7.5 L Hct 22.6 L MCV MCH MCHC RDW 19.3 H Plt Count 80 L Lymph % (Auto) [place] % (Auto) Lymph # [place] # Baso # Seg Neutrophils % Seg Neuts % (Manual) Lymphocytes % (Manual) 12.0 L Monocytes % (Manual) Eosinophils % (Manual) Basophils % (Manual) Nucleated RBC % Seg Neutrophils # Seg Neutrophils # Man Lymphocytes # (Manual) Monocytes # (Manual) Eosinophils # (Manual) Basophils # (Manual) PT INR Fibrinogen dRVVT Confirm Interp Factor V Activity POC ABG pH 7.475 H POC ABG pCO2 33.3 L POC ABG pO2 140 H ABG pO2 ABG HCO3 ABG Base Excess ABG Hemoglobin Oxyhemoglobin Sodium Potassium Chloride Carbon Dioxide BUN Creatinine Glucose POC Glucose 141 H Lactic Acid Calcium Phosphorus Magnesium Direct Bilirubin AST ALT Alkaline Phosphatase Lactate Dehydrogenase Troponin T C-Reactive Protein Total Protein Albumin Prealbumin Triglycerides Cholesterol LDL Cholesterol Direct HDL Cholesterol Urine pH Urine WBC (Auto) Urine Creatinine Urine Total Protein Fluid Total Protein Vancomycin Trough Rheumatoid Factor Complement C4 Miscellaneous Test Crossmatch 10/05/16 10/05/16 10/05/16 05:00 05:09 12:58 WBC RBC Hgb Hct MCV MCH MCHC RDW Plt Count Lymph % (Auto) [place] % (Auto) Lymph # [place] # Baso # Seg Neutrophils % Seg Neuts % (Manual) Lymphocytes % (Manual) Monocytes % (Manual) Eosinophils % (Manual) Basophils % (Manual) Nucleated RBC % Seg Neutrophils # Seg Neutrophils # Man Lymphocytes # (Manual) Monocytes # (Manual) Eosinophils # (Manual) Basophils # (Manual) PT INR Fibrinogen dRVVT Confirm Interp Factor V Activity POC ABG pH POC ABG pCO2 POC ABG pO2 ABG pO2 ABG HCO3 ABG Base Excess ABG Hemoglobin Oxyhemoglobin Sodium 131 L Potassium Chloride 94.0 L Carbon Dioxide 20 L BUN 22 H Creatinine 2.0 H Glucose 123 H POC Glucose 166 H 179 H Lactic Acid Calcium 7.7 L Phosphorus 2.20 L D Magnesium Direct Bilirubin AST ALT Alkaline Phosphatase Lactate Dehydrogenase Troponin T C-Reactive Protein Total Protein Albumin Prealbumin Triglycerides Cholesterol LDL Cholesterol Direct HDL Cholesterol Urine pH Urine WBC (Auto) Urine Creatinine Urine Total Protein Fluid Total Protein Vancomycin Trough Rheumatoid Factor Complement C4 Miscellaneous Test Crossmatch 10/05/16 10/05/16 10/05/16 15:50 18:53 23:12 WBC RBC Hgb Hct MCV MCH MCHC RDW Plt Count Lymph % (Auto) [place] % (Auto) Lymph # [place] # Baso # Seg Neutrophils % Seg Neuts % (Manual) Lymphocytes % (Manual) Monocytes % (Manual) Eosinophils % (Manual) Basophils % (Manual) Nucleated RBC % Seg Neutrophils # Seg Neutrophils # Man Lymphocytes # (Manual) Monocytes # (Manual) Eosinophils # (Manual) Basophils # (Manual) PT INR Fibrinogen dRVVT Confirm Interp Factor V Activity POC ABG pH POC ABG pCO2 POC ABG pO2 ABG pO2 ABG HCO3 ABG Base Excess ABG Hemoglobin Oxyhemoglobin Sodium Potassium Chloride Carbon Dioxide BUN Creatinine Glucose POC Glucose 150 H 164 H Lactic Acid Calcium Phosphorus Magnesium Direct Bilirubin AST ALT Alkaline Phosphatase Lactate Dehydrogenase Troponin T C-Reactive Protein Total Protein Albumin Prealbumin Triglycerides Cholesterol LDL Cholesterol Direct HDL Cholesterol Urine pH Urine WBC (Auto) Urine Creatinine Urine Total Protein Fluid Total Protein Vancomycin Trough Rheumatoid Factor Complement C4 Miscellaneous Test Crossmatch See Detail 10/06/16 10/06/16 10/06/16 03:50 03:50 04:53 WBC RBC 3.00 L Hgb 8.6 L Hct 25.8 L MCV MCH MCHC RDW 17.9 H Plt Count 65 L Lymph % (Auto) [place] % (Auto) Lymph # [place] # Baso # Seg Neutrophils % Seg Neuts % (Manual) 30.0 L Lymphocytes % (Manual) 5.0 L Monocytes % (Manual) Eosinophils % (Manual) Basophils % (Manual) Nucleated RBC % Seg Neutrophils # Seg Neutrophils # Man Lymphocytes # (Manual) 0.4 L Monocytes # (Manual) Eosinophils # (Manual) Basophils # (Manual) PT INR Fibrinogen dRVVT Confirm Interp Factor V Activity POC ABG pH 7.310 L POC ABG pCO2 49.0 H POC ABG pO2 ABG pO2 ABG HCO3 ABG Base Excess ABG Hemoglobin Oxyhemoglobin Sodium 133 L Potassium Chloride 95.9 L Carbon Dioxide BUN 26 H Creatinine 2.0 H Glucose 116 H POC Glucose Lactic Acid Calcium 7.8 L Phosphorus Magnesium Direct Bilirubin AST ALT Alkaline Phosphatase Lactate Dehydrogenase Troponin T C-Reactive Protein Total Protein Albumin Prealbumin Triglycerides Cholesterol LDL Cholesterol Direct HDL Cholesterol Urine pH Urine WBC (Auto) Urine Creatinine Urine Total Protein Fluid Total Protein Vancomycin Trough Rheumatoid Factor Complement C4 Miscellaneous Test Crossmatch 10/06/16 10/06/16 10/06/16 05:23 11:52 18:34 WBC RBC Hgb Hct MCV MCH MCHC RDW Plt Count Lymph % (Auto) [place] % (Auto) Lymph # [place] # Baso # Seg Neutrophils % Seg Neuts % (Manual) Lymphocytes % (Manual) Monocytes % (Manual) Eosinophils % (Manual) Basophils % (Manual) Nucleated RBC % Seg Neutrophils # Seg Neutrophils # Man Lymphocytes # (Manual) Monocytes # (Manual) Eosinophils # (Manual) Basophils # (Manual) PT INR Fibrinogen dRVVT Confirm Interp Factor V Activity POC ABG pH POC ABG pCO2 POC ABG pO2 ABG pO2 ABG HCO3 ABG Base Excess ABG Hemoglobin Oxyhemoglobin Sodium Potassium Chloride Carbon Dioxide BUN Creatinine Glucose POC Glucose 126 H 116 H 129 H Lactic Acid Calcium Phosphorus Magnesium Direct Bilirubin AST ALT Alkaline Phosphatase Lactate Dehydrogenase Troponin T C-Reactive Protein Total Protein Albumin Prealbumin Triglycerides Cholesterol LDL Cholesterol Direct HDL Cholesterol Urine pH Urine WBC (Auto) Urine Creatinine Urine Total Protein Fluid Total Protein Vancomycin Trough Rheumatoid Factor Complement C4 Miscellaneous Test Crossmatch 10/07/16 10/07/16 10/07/16 03:45 05:00 10:00 WBC 17.0 H RBC 2.68 L Hgb 7.3 L Hct 25.3 L MCV MCH 27 L MCHC 29 L RDW 19.6 H Plt Count 74 L Lymph % (Auto) [place] % (Auto) Lymph # [place] # Baso # Seg Neutrophils % Seg Neuts % (Manual) Lymphocytes % (Manual) 12.0 L Monocytes % (Manual) Eosinophils % (Manual) Basophils % (Manual) Nucleated RBC % 4.0 H Seg Neutrophils # Seg Neutrophils # Man 10.7 H Lymphocytes # (Manual) Monocytes # (Manual) Eosinophils # (Manual) Basophils # (Manual) PT INR Fibrinogen dRVVT Confirm Interp Factor V Activity POC ABG pH POC ABG pCO2 POC ABG pO2 ABG pO2 ABG HCO3 ABG Base Excess ABG Hemoglobin Oxyhemoglobin Sodium 130 L Potassium 3.2 L Chloride 93.9 L Carbon Dioxide 20 L BUN 44 H Creatinine 2.7 H Glucose 129 H POC Glucose Lactic Acid Calcium 7.4 L Phosphorus Magnesium Direct Bilirubin AST ALT 6 L Alkaline Phosphatase 195 H Lactate Dehydrogenase Troponin T C-Reactive Protein Total Protein 4.9 L Albumin 1.0 L Prealbumin Triglycerides Cholesterol LDL Cholesterol Direct HDL Cholesterol Urine pH Urine WBC (Auto) Urine Creatinine Urine Total Protein Fluid Total Protein Vancomycin Trough Rheumatoid Factor Complement C4 Miscellaneous Test Flexitest 1 H Crossmatch 10/07/16 10/07/16 10/07/16 10:00 11:24 18:10 WBC RBC Hgb Hct MCV MCH MCHC RDW Plt Count Lymph % (Auto) [place] % (Auto) Lymph # [place] # Baso # Seg Neutrophils % Seg Neuts % (Manual) Lymphocytes % (Manual) Monocytes % (Manual) Eosinophils % (Manual) Basophils % (Manual) Nucleated RBC % Seg Neutrophils # Seg Neutrophils # Man Lymphocytes # (Manual) Monocytes # (Manual) Eosinophils # (Manual) Basophils # (Manual) PT INR Fibrinogen dRVVT Confirm Interp Factor V Activity POC ABG pH POC ABG pCO2 POC ABG pO2 ABG pO2 ABG HCO3 ABG Base Excess ABG Hemoglobin Oxyhemoglobin Sodium Potassium Chloride Carbon Dioxide BUN Creatinine Glucose POC Glucose 116 H 130 H Lactic Acid Calcium Phosphorus Magnesium Direct Bilirubin AST ALT Alkaline Phosphatase Lactate Dehydrogenase Troponin T C-Reactive Protein 19.40 H Total Protein Albumin Prealbumin Triglycerides Cholesterol LDL Cholesterol Direct HDL Cholesterol Urine pH Urine WBC (Auto) Urine Creatinine Urine Total Protein Fluid Total Protein Vancomycin Trough Rheumatoid Factor Complement C4 Miscellaneous Test Crossmatch 10/07/16 10/08/16 10/08/16 18:30 00:00 04:00 WBC RBC Hgb Hct MCV MCH MCHC RDW Plt Count Lymph % (Auto) [place] % (Auto) Lymph # [place] # Baso # Seg Neutrophils % Seg Neuts % (Manual) Lymphocytes % (Manual) Monocytes % (Manual) Eosinophils % (Manual) Basophils % (Manual) Nucleated RBC % Seg Neutrophils # Seg Neutrophils # Man Lymphocytes # (Manual) Monocytes # (Manual) Eosinophils # (Manual) Basophils # (Manual) PT INR Fibrinogen dRVVT Confirm Interp Factor V Activity POC ABG pH POC ABG pCO2 POC ABG pO2 ABG pO2 ABG HCO3 ABG Base Excess ABG Hemoglobin Oxyhemoglobin Sodium 132 L Potassium 3.3 L Chloride 93.6 L Carbon Dioxide 17 L BUN 59 H Creatinine 2.7 H Glucose 121 H POC Glucose 122 H Lactic Acid Calcium 7.6 L Phosphorus Magnesium Direct Bilirubin AST ALT Alkaline Phosphatase Lactate Dehydrogenase Troponin T C-Reactive Protein Total Protein Albumin Prealbumin Triglycerides Cholesterol LDL Cholesterol Direct HDL Cholesterol Urine pH Urine WBC (Auto) > 182.0 H Urine Creatinine Urine Total Protein Fluid Total Protein Vancomycin Trough Rheumatoid Factor Complement C4 Miscellaneous Test Crossmatch 10/08/16 10/08/16 10/08/16 04:30 05:30 11:51 WBC RBC 5.15 H Hgb 14.4 H D Hct 44.5 H D MCV MCH MCHC RDW 19.5 H Plt Count 56 L Lymph % (Auto) [place] % (Auto) Lymph # [place] # Baso # Seg Neutrophils % Seg Neuts % (Manual) 24.0 L Lymphocytes % (Manual) 8.0 L Monocytes % (Manual) Eosinophils % (Manual) Basophils % (Manual) Nucleated RBC % 9.0 H Seg Neutrophils # Seg Neutrophils # Man Lymphocytes # (Manual) 0.7 L Monocytes # (Manual) Eosinophils # (Manual) Basophils # (Manual) PT INR Fibrinogen dRVVT Confirm Interp Factor V Activity POC ABG pH POC ABG pCO2 POC ABG pO2 ABG pO2 ABG HCO3 ABG Base Excess ABG Hemoglobin Oxyhemoglobin Sodium Potassium Chloride Carbon Dioxide BUN Creatinine Glucose POC Glucose 125 H 150 H Lactic Acid Calcium Phosphorus Magnesium Direct Bilirubin AST ALT Alkaline Phosphatase Lactate Dehydrogenase Troponin T C-Reactive Protein Total Protein Albumin Prealbumin Triglycerides Cholesterol LDL Cholesterol Direct HDL Cholesterol Urine pH Urine WBC (Auto) Urine Creatinine Urine Total Protein Fluid Total Protein Vancomycin Trough Rheumatoid Factor Complement C4 Miscellaneous Test Crossmatch 10/08/16 10/08/16 10/08/16 12:49 17:07 19:30 WBC RBC Hgb 7.1 L D Hct 22.4 L D MCV MCH MCHC RDW Plt Count Lymph % (Auto) [place] % (Auto) Lymph # [place] # Baso # Seg Neutrophils % Seg Neuts % (Manual) Lymphocytes % (Manual) Monocytes % (Manual) Eosinophils % (Manual) Basophils % (Manual) Nucleated RBC % Seg Neutrophils # Seg Neutrophils # Man Lymphocytes # (Manual) Monocytes # (Manual) Eosinophils # (Manual) Basophils # (Manual) PT INR Fibrinogen dRVVT Confirm Interp Factor V Activity POC ABG pH POC ABG pCO2 28.2 L POC ABG pO2 111 H ABG pO2 ABG HCO3 ABG Base Excess ABG Hemoglobin Oxyhemoglobin Sodium Potassium Chloride Carbon Dioxide BUN Creatinine Glucose POC Glucose 145 H Lactic Acid Calcium Phosphorus Magnesium Direct Bilirubin AST ALT Alkaline Phosphatase Lactate Dehydrogenase Troponin T C-Reactive Protein Total Protein Albumin Prealbumin Triglycerides Cholesterol LDL Cholesterol Direct HDL Cholesterol Urine pH Urine WBC (Auto) Urine Creatinine Urine Total Protein Fluid Total Protein Vancomycin Trough Rheumatoid Factor Complement C4 Miscellaneous Test Crossmatch 10/08/16 10/09/16 10/09/16 19:30 03:45 03:45 WBC 12.6 H RBC 2.36 L Hgb 6.7 L Hct 21.1 L MCV MCH MCHC RDW 19.5 H Plt Count 75 L Lymph % (Auto) [place] % (Auto) Lymph # [place] # Baso # Seg Neutrophils % Seg Neuts % (Manual) Lymphocytes % (Manual) Monocytes % (Manual) 10.0 H Eosinophils % (Manual) Basophils % (Manual) Nucleated RBC % 3.0 H Seg Neutrophils # Seg Neutrophils # Man Lymphocytes # (Manual) Monocytes # (Manual) 1.3 H Eosinophils # (Manual) Basophils # (Manual) PT 18.0 H INR 1.41 H Fibrinogen dRVVT Confirm Interp Factor V Activity POC ABG pH POC ABG pCO2 POC ABG pO2 ABG pO2 ABG HCO3 ABG Base Excess ABG Hemoglobin Oxyhemoglobin Sodium 135 L Potassium Chloride Carbon Dioxide 17 L BUN 81 H Creatinine 3.2 H Glucose 109 H POC Glucose Lactic Acid Calcium 7.4 L Phosphorus 4.60 H D Magnesium Direct Bilirubin AST ALT Alkaline Phosphatase Lactate Dehydrogenase Troponin T C-Reactive Protein Total Protein Albumin Prealbumin Triglycerides Cholesterol LDL Cholesterol Direct HDL Cholesterol Urine pH Urine WBC (Auto) Urine Creatinine Urine Total Protein Fluid Total Protein Vancomycin Trough Rheumatoid Factor Complement C4 Miscellaneous Test Crossmatch 10/09/16 10/09/16 10/09/16 03:45 05:14 07:20 WBC RBC Hgb Hct MCV MCH MCHC RDW Plt Count Lymph % (Auto) [place] % (Auto) Lymph # [place] # Baso # Seg Neutrophils % Seg Neuts % (Manual) Lymphocytes % (Manual) Monocytes % (Manual) Eosinophils % (Manual) Basophils % (Manual) Nucleated RBC % Seg Neutrophils # Seg Neutrophils # Man Lymphocytes # (Manual) Monocytes # (Manual) Eosinophils # (Manual) Basophils # (Manual) PT 19.0 H INR 1.51 H Fibrinogen dRVVT Confirm Interp Factor V Activity POC ABG pH POC ABG pCO2 POC ABG pO2 ABG pO2 ABG HCO3 ABG Base Excess ABG Hemoglobin Oxyhemoglobin Sodium Potassium Chloride Carbon Dioxide BUN Creatinine Glucose POC Glucose 151 H Lactic Acid Calcium Phosphorus Magnesium Direct Bilirubin AST ALT Alkaline Phosphatase Lactate Dehydrogenase Troponin T C-Reactive Protein Total Protein Albumin Prealbumin Triglycerides Cholesterol LDL Cholesterol Direct HDL Cholesterol Urine pH Urine WBC (Auto) Urine Creatinine Urine Total Protein Fluid Total Protein Vancomycin Trough Rheumatoid Factor Complement C4 Miscellaneous Test Crossmatch See Detail 10/09/16 10/09/16 10/09/16 11:46 16:20 16:43 WBC RBC Hgb 7.2 L Hct 22.2 L MCV MCH MCHC RDW Plt Count Lymph % (Auto) [place] % (Auto) Lymph # [place] # Baso # Seg Neutrophils % Seg Neuts % (Manual) Lymphocytes % (Manual) Monocytes % (Manual) Eosinophils % (Manual) Basophils % (Manual) Nucleated RBC % Seg Neutrophils # Seg Neutrophils # Man Lymphocytes # (Manual) Monocytes # (Manual) Eosinophils # (Manual) Basophils # (Manual) PT INR Fibrinogen dRVVT Confirm Interp Factor V Activity POC ABG pH POC ABG pCO2 POC ABG pO2 ABG pO2 ABG HCO3 ABG Base Excess ABG Hemoglobin Oxyhemoglobin Sodium Potassium Chloride Carbon Dioxide BUN Creatinine Glucose POC Glucose 133 H 141 H Lactic Acid Calcium Phosphorus Magnesium Direct Bilirubin AST ALT Alkaline Phosphatase Lactate Dehydrogenase Troponin T C-Reactive Protein Total Protein Albumin Prealbumin Triglycerides Cholesterol LDL Cholesterol Direct HDL Cholesterol Urine pH Urine WBC (Auto) Urine Creatinine Urine Total Protein Fluid Total Protein Vancomycin Trough Rheumatoid Factor Complement C4 Miscellaneous Test Crossmatch 10/10/16 10/10/16 10/10/16 05:00 05:00 11:19 WBC 18.5 H RBC 2.19 L Hgb 6.4 L Hct 19.6 L* MCV MCH MCHC RDW 19.3 H Plt Count 93 L Lymph % (Auto) [place] % (Auto) Lymph # [place] # Baso # Seg Neutrophils % Seg Neuts % (Manual) Lymphocytes % (Manual) 10.0 L Monocytes % (Manual) Eosinophils % (Manual) Basophils % (Manual) Nucleated RBC % 4.0 H Seg Neutrophils # Seg Neutrophils # Man 11.3 H Lymphocytes # (Manual) Monocytes # (Manual) Eosinophils # (Manual) Basophils # (Manual) PT INR Fibrinogen dRVVT Confirm Interp Factor V Activity POC ABG pH POC ABG pCO2 POC ABG pO2 ABG pO2 ABG HCO3 ABG Base Excess ABG Hemoglobin Oxyhemoglobin Sodium Potassium 5.7 H D Chloride Carbon Dioxide 16 L BUN 94 H Creatinine 3.1 H Glucose 131 H POC Glucose 153 H Lactic Acid Calcium 8.2 L Phosphorus 5.10 H Magnesium 2.40 H Direct Bilirubin 0.3 H AST ALT < 5 L Alkaline Phosphatase 319 H Lactate Dehydrogenase Troponin T C-Reactive Protein Total Protein 5.1 L Albumin 1.0 L Prealbumin Triglycerides Cholesterol LDL Cholesterol Direct HDL Cholesterol Urine pH Urine WBC (Auto) Urine Creatinine Urine Total Protein Fluid Total Protein Vancomycin Trough Rheumatoid Factor Complement C4 Miscellaneous Test Crossmatch 10/10/16 10/10/16 10/11/16 17:50 23:30 04:15 WBC RBC Hgb Hct MCV MCH MCHC RDW Plt Count Lymph % (Auto) [place] % (Auto) Lymph # [place] # Baso # Seg Neutrophils % Seg Neuts % (Manual) Lymphocytes % (Manual) Monocytes % (Manual) Eosinophils % (Manual) Basophils % (Manual) Nucleated RBC % Seg Neutrophils # Seg Neutrophils # Man Lymphocytes # (Manual) Monocytes # (Manual) Eosinophils # (Manual) Basophils # (Manual) PT INR Fibrinogen dRVVT Confirm Interp Factor V Activity POC ABG pH POC ABG pCO2 POC ABG pO2 ABG pO2 ABG HCO3 ABG Base Excess ABG Hemoglobin Oxyhemoglobin Sodium Potassium Chloride 96.4 L Carbon Dioxide 21 L BUN 57 H Creatinine 2.1 H Glucose 151 H POC Glucose 146 H 141 H Lactic Acid Calcium 8.3 L Phosphorus Magnesium Direct Bilirubin AST ALT Alkaline Phosphatase Lactate Dehydrogenase Troponin T C-Reactive Protein Total Protein Albumin Prealbumin Triglycerides Cholesterol LDL Cholesterol Direct HDL Cholesterol Urine pH Urine WBC (Auto) Urine Creatinine Urine Total Protein Fluid Total Protein Vancomycin Trough Rheumatoid Factor Complement C4 Miscellaneous Test Crossmatch 10/11/16 10/11/16 10/11/16 04:15 04:15 05:30 WBC 28.3 H RBC 3.12 L Hgb 9.3 L Hct 28.7 L D MCV MCH MCHC RDW 17.7 H Plt Count 128 L Lymph % (Auto) [place] % (Auto) Lymph # [place] # Baso # Seg Neutrophils % Seg Neuts % (Manual) Lymphocytes % (Manual) Monocytes % (Manual) Eosinophils % (Manual) Basophils % (Manual) Nucleated RBC % Seg Neutrophils # Seg Neutrophils # Man Lymphocytes # (Manual) Monocytes # (Manual) Eosinophils # (Manual) Basophils # (Manual) PT INR Fibrinogen dRVVT Confirm Interp Factor V Activity POC ABG pH POC ABG pCO2 POC ABG pO2 ABG pO2 ABG HCO3 ABG Base Excess ABG Hemoglobin Oxyhemoglobin Sodium Potassium Chloride Carbon Dioxide BUN Creatinine Glucose POC Glucose 167 H Lactic Acid Calcium Phosphorus Magnesium Direct Bilirubin AST ALT Alkaline Phosphatase Lactate Dehydrogenase Troponin T C-Reactive Protein 15.80 H Total Protein Albumin Prealbumin Triglycerides Cholesterol LDL Cholesterol Direct HDL Cholesterol Urine pH Urine WBC (Auto) Urine Creatinine Urine Total Protein Fluid Total Protein Vancomycin Trough Rheumatoid Factor Complement C4 Miscellaneous Test Crossmatch 10/11/16 10/11/16 10/11/16 11:40 15:49 23:57 WBC RBC Hgb Hct MCV MCH MCHC RDW Plt Count Lymph % (Auto) [place] % (Auto) Lymph # [place] # Baso # Seg Neutrophils % Seg Neuts % (Manual) Lymphocytes % (Manual) Monocytes % (Manual) Eosinophils % (Manual) Basophils % (Manual) Nucleated RBC % Seg Neutrophils # Seg Neutrophils # Man Lymphocytes # (Manual) Monocytes # (Manual) Eosinophils # (Manual) Basophils # (Manual) PT INR Fibrinogen dRVVT Confirm Interp Factor V Activity POC ABG pH POC ABG pCO2 POC ABG pO2 ABG pO2 ABG HCO3 ABG Base Excess ABG Hemoglobin Oxyhemoglobin Sodium Potassium Chloride Carbon Dioxide BUN Creatinine Glucose POC Glucose 139 H 168 H 161 H Lactic Acid Calcium Phosphorus Magnesium Direct Bilirubin AST ALT Alkaline Phosphatase Lactate Dehydrogenase Troponin T C-Reactive Protein Total Protein Albumin Prealbumin Triglycerides Cholesterol LDL Cholesterol Direct HDL Cholesterol Urine pH Urine WBC (Auto) Urine Creatinine Urine Total Protein Fluid Total Protein Vancomycin Trough Rheumatoid Factor Complement C4 Miscellaneous Test Crossmatch 10/12/16 10/12/16 10/12/16 04:40 04:40 05:44 WBC 22.5 H RBC 2.88 L Hgb 8.8 L Hct 26.8 L MCV MCH MCHC RDW 17.8 H Plt Count Lymph % (Auto) [place] % (Auto) Lymph # [place] # Baso # Seg Neutrophils % Seg Neuts % (Manual) Lymphocytes % (Manual) Monocytes % (Manual) Eosinophils % (Manual) Basophils % (Manual) Nucleated RBC % Seg Neutrophils # Seg Neutrophils # Man Lymphocytes # (Manual) Monocytes # (Manual) Eosinophils # (Manual) Basophils # (Manual) PT INR Fibrinogen dRVVT Confirm Interp Factor V Activity POC ABG pH POC ABG pCO2 POC ABG pO2 ABG pO2 ABG HCO3 ABG Base Excess ABG Hemoglobin Oxyhemoglobin Sodium 134 L Potassium Chloride 93.0 L Carbon Dioxide BUN 74 H Creatinine 2.5 H Glucose 137 H POC Glucose 158 H Lactic Acid Calcium 8.2 L Phosphorus Magnesium Direct Bilirubin AST ALT Alkaline Phosphatase Lactate Dehydrogenase Troponin T C-Reactive Protein Total Protein Albumin Prealbumin Triglycerides Cholesterol LDL Cholesterol Direct HDL Cholesterol Urine pH Urine WBC (Auto) Urine Creatinine Urine Total Protein Fluid Total Protein Vancomycin Trough Rheumatoid Factor Complement C4 Miscellaneous Test Crossmatch 10/12/16 10/12/16 10/12/16 12:27 18:18 23:46 WBC RBC Hgb Hct MCV MCH MCHC RDW Plt Count Lymph % (Auto) [place] % (Auto) Lymph # [place] # Baso # Seg Neutrophils % Seg Neuts % (Manual) Lymphocytes % (Manual) Monocytes % (Manual) Eosinophils % (Manual) Basophils % (Manual) Nucleated RBC % Seg Neutrophils # Seg Neutrophils # Man Lymphocytes # (Manual) Monocytes # (Manual) Eosinophils # (Manual) Basophils # (Manual) PT INR Fibrinogen dRVVT Confirm Interp Factor V Activity POC ABG pH POC ABG pCO2 POC ABG pO2 ABG pO2 ABG HCO3 ABG Base Excess ABG Hemoglobin Oxyhemoglobin Sodium Potassium Chloride Carbon Dioxide BUN Creatinine Glucose POC Glucose 153 H 140 H 150 H Lactic Acid Calcium Phosphorus Magnesium Direct Bilirubin AST ALT Alkaline Phosphatase Lactate Dehydrogenase Troponin T C-Reactive Protein Total Protein Albumin Prealbumin Triglycerides Cholesterol LDL Cholesterol Direct HDL Cholesterol Urine pH Urine WBC (Auto) Urine Creatinine Urine Total Protein Fluid Total Protein Vancomycin Trough Rheumatoid Factor Complement C4 Miscellaneous Test Crossmatch 10/13/16 10/13/16 10/13/16 06:22 09:20 12:29 WBC RBC Hgb Hct MCV MCH MCHC RDW Plt Count Lymph % (Auto) [place] % (Auto) Lymph # [place] # Baso # Seg Neutrophils % Seg Neuts % (Manual) Lymphocytes % (Manual) Monocytes % (Manual) Eosinophils % (Manual) Basophils % (Manual) Nucleated RBC % Seg Neutrophils # Seg Neutrophils # Man Lymphocytes # (Manual) Monocytes # (Manual) Eosinophils # (Manual) Basophils # (Manual) PT INR Fibrinogen dRVVT Confirm Interp Factor V Activity POC ABG pH POC ABG pCO2 POC ABG pO2 ABG pO2 ABG HCO3 ABG Base Excess ABG Hemoglobin Oxyhemoglobin Sodium Potassium Chloride Carbon Dioxide BUN Creatinine Glucose POC Glucose 165 H 193 H Lactic Acid Calcium Phosphorus Magnesium Direct Bilirubin AST ALT Alkaline Phosphatase Lactate Dehydrogenase Troponin T C-Reactive Protein Total Protein Albumin Prealbumin Triglycerides Cholesterol LDL Cholesterol Direct HDL Cholesterol Urine pH Urine WBC (Auto) Urine Creatinine Urine Total Protein Fluid Total Protein Vancomycin Trough Rheumatoid Factor Complement C4 Miscellaneous Test Flexitest 1 H Crossmatch 10/13/16 10/13/16 10/13/16 18:09 Unknown Unknown WBC 23.4 H RBC 2.83 L Hgb 8.7 L Hct 26.1 L MCV MCH MCHC RDW 18.1 H Plt Count Lymph % (Auto) [place] % (Auto) Lymph # [place] # Baso # Seg Neutrophils % Seg Neuts % (Manual) Lymphocytes % (Manual) Monocytes % (Manual) Eosinophils % (Manual) Basophils % (Manual) Nucleated RBC % Seg Neutrophils # Seg Neutrophils # Man Lymphocytes # (Manual) Monocytes # (Manual) Eosinophils # (Manual) Basophils # (Manual) PT INR Fibrinogen dRVVT Confirm Interp Factor V Activity POC ABG pH POC ABG pCO2 POC ABG pO2 ABG pO2 ABG HCO3 ABG Base Excess ABG Hemoglobin Oxyhemoglobin Sodium Potassium Chloride 95.8 L Carbon Dioxide BUN 82 H Creatinine 2.6 H Glucose 152 H POC Glucose 166 H Lactic Acid Calcium Phosphorus Magnesium Direct Bilirubin AST ALT Alkaline Phosphatase Lactate Dehydrogenase Troponin T C-Reactive Protein Total Protein Albumin Prealbumin Triglycerides Cholesterol LDL Cholesterol Direct HDL Cholesterol Urine pH Urine WBC (Auto) Urine Creatinine Urine Total Protein Fluid Total Protein Vancomycin Trough Rheumatoid Factor Complement C4 Miscellaneous Test Crossmatch 10/14/16 10/14/16 10/14/16 05:38 06:35 08:10 WBC 20.7 H RBC 2.81 L Hgb 8.4 L Hct 27.2 L MCV MCH MCHC RDW 19.4 H Plt Count Lymph % (Auto) [place] % (Auto) Lymph # [place] # Baso # Seg Neutrophils % Seg Neuts % (Manual) Lymphocytes % (Manual) Monocytes % (Manual) Eosinophils % (Manual) Basophils % (Manual) Nucleated RBC % Seg Neutrophils # Seg Neutrophils # Man Lymphocytes # (Manual) Monocytes # (Manual) Eosinophils # (Manual) Basophils # (Manual) PT INR Fibrinogen dRVVT Confirm Interp Factor V Activity POC ABG pH POC ABG pCO2 POC ABG pO2 ABG pO2 ABG HCO3 ABG Base Excess ABG Hemoglobin Oxyhemoglobin Sodium Potassium Chloride Carbon Dioxide BUN 58 H Creatinine 1.9 H Glucose 169 H POC Glucose 195 H Lactic Acid Calcium Phosphorus Magnesium Direct Bilirubin AST ALT Alkaline Phosphatase Lactate Dehydrogenase Troponin T C-Reactive Protein Total Protein Albumin Prealbumin Triglycerides Cholesterol LDL Cholesterol Direct HDL Cholesterol Urine pH Urine WBC (Auto) Urine Creatinine Urine Total Protein Fluid Total Protein Vancomycin Trough Rheumatoid Factor Complement C4 Miscellaneous Test Crossmatch 10/14/16 10/14/16 10/14/16 11:44 17:13 23:28 WBC RBC Hgb Hct MCV MCH MCHC RDW Plt Count Lymph % (Auto) [place] % (Auto) Lymph # [place] # Baso # Seg Neutrophils % Seg Neuts % (Manual) Lymphocytes % (Manual) Monocytes % (Manual) Eosinophils % (Manual) Basophils % (Manual) Nucleated RBC % Seg Neutrophils # Seg Neutrophils # Man Lymphocytes # (Manual) Monocytes # (Manual) Eosinophils # (Manual) Basophils # (Manual) PT INR Fibrinogen dRVVT Confirm Interp Factor V Activity POC ABG pH POC ABG pCO2 POC ABG pO2 ABG pO2 ABG HCO3 ABG Base Excess ABG Hemoglobin Oxyhemoglobin Sodium Potassium Chloride Carbon Dioxide BUN Creatinine Glucose POC Glucose 174 H 121 H 151 H Lactic Acid Calcium Phosphorus Magnesium Direct Bilirubin AST ALT Alkaline Phosphatase Lactate Dehydrogenase Troponin T C-Reactive Protein Total Protein Albumin Prealbumin Triglycerides Cholesterol LDL Cholesterol Direct HDL Cholesterol Urine pH Urine WBC (Auto) Urine Creatinine Urine Total Protein Fluid Total Protein Vancomycin Trough Rheumatoid Factor Complement C4 Miscellaneous Test Crossmatch 10/15/16 10/15/16 10/15/16 05:06 12:26 17:48 WBC RBC Hgb Hct MCV MCH MCHC RDW Plt Count Lymph % (Auto) [place] % (Auto) Lymph # [place] # Baso # Seg Neutrophils % Seg Neuts % (Manual) Lymphocytes % (Manual) Monocytes % (Manual) Eosinophils % (Manual) Basophils % (Manual) Nucleated RBC % Seg Neutrophils # Seg Neutrophils # Man Lymphocytes # (Manual) Monocytes # (Manual) Eosinophils # (Manual) Basophils # (Manual) PT INR Fibrinogen dRVVT Confirm Interp Factor V Activity POC ABG pH POC ABG pCO2 POC ABG pO2 ABG pO2 ABG HCO3 ABG Base Excess ABG Hemoglobin Oxyhemoglobin Sodium Potassium Chloride Carbon Dioxide BUN Creatinine Glucose POC Glucose 151 H 149 H 153 H Lactic Acid Calcium Phosphorus Magnesium Direct Bilirubin AST ALT Alkaline Phosphatase Lactate Dehydrogenase Troponin T C-Reactive Protein Total Protein Albumin Prealbumin Triglycerides Cholesterol LDL Cholesterol Direct HDL Cholesterol Urine pH Urine WBC (Auto) Urine Creatinine Urine Total Protein Fluid Total Protein Vancomycin Trough Rheumatoid Factor Complement C4 Miscellaneous Test Crossmatch 10/15/16 10/15/16 10/16/16 Unknown Unknown 00:02 WBC 23.4 H RBC 2.78 L Hgb 8.5 L Hct 25.7 L MCV MCH MCHC RDW 18.7 H Plt Count Lymph % (Auto) [place] % (Auto) Lymph # [place] # Baso # Seg Neutrophils % Seg Neuts % (Manual) Lymphocytes % (Manual) Monocytes % (Manual) Eosinophils % (Manual) Basophils % (Manual) Nucleated RBC % Seg Neutrophils # Seg Neutrophils # Man Lymphocytes # (Manual) Monocytes # (Manual) Eosinophils # (Manual) Basophils # (Manual) PT INR Fibrinogen dRVVT Confirm Interp Factor V Activity POC ABG pH POC ABG pCO2 POC ABG pO2 ABG pO2 ABG HCO3 ABG Base Excess ABG Hemoglobin Oxyhemoglobin Sodium Potassium Chloride Carbon Dioxide BUN 73 H Creatinine 2.3 H Glucose 120 H POC Glucose 137 H Lactic Acid Calcium Phosphorus Magnesium Direct Bilirubin AST ALT Alkaline Phosphatase Lactate Dehydrogenase Troponin T C-Reactive Protein Total Protein Albumin Prealbumin Triglycerides Cholesterol LDL Cholesterol Direct HDL Cholesterol Urine pH Urine WBC (Auto) Urine Creatinine Urine Total Protein Fluid Total Protein Vancomycin Trough Rheumatoid Factor Complement C4 Miscellaneous Test Crossmatch 10/16/16 10/16/16 10/16/16 05:44 06:25 06:25 WBC 22.5 H RBC 2.76 L Hgb 8.3 L Hct 25.2 L MCV MCH MCHC RDW 18.3 H Plt Count Lymph % (Auto) [place] % (Auto) Lymph # [place] # Baso # Seg Neutrophils % Seg Neuts % (Manual) Lymphocytes % (Manual) Monocytes % (Manual) Eosinophils % (Manual) Basophils % (Manual) Nucleated RBC % Seg Neutrophils # Seg Neutrophils # Man Lymphocytes # (Manual) Monocytes # (Manual) Eosinophils # (Manual) Basophils # (Manual) PT INR Fibrinogen dRVVT Confirm Interp Factor V Activity POC ABG pH POC ABG pCO2 POC ABG pO2 ABG pO2 ABG HCO3 ABG Base Excess ABG Hemoglobin Oxyhemoglobin Sodium Potassium Chloride Carbon Dioxide BUN 92 H Creatinine 3.0 H Glucose 138 H POC Glucose 110 H Lactic Acid Calcium Phosphorus Magnesium Direct Bilirubin AST ALT Alkaline Phosphatase Lactate Dehydrogenase Troponin T C-Reactive Protein Total Protein Albumin Prealbumin Triglycerides Cholesterol LDL Cholesterol Direct HDL Cholesterol Urine pH Urine WBC (Auto) Urine Creatinine Urine Total Protein Fluid Total Protein Vancomycin Trough Rheumatoid Factor Complement C4 Miscellaneous Test Crossmatch 10/16/16 10/16/16 10/16/16 11:27 11:48 17:36 WBC RBC Hgb Hct MCV MCH MCHC RDW Plt Count Lymph % (Auto) [place] % (Auto) Lymph # [place] # Baso # Seg Neutrophils % Seg Neuts % (Manual) Lymphocytes % (Manual) Monocytes % (Manual) Eosinophils % (Manual) Basophils % (Manual) Nucleated RBC % Seg Neutrophils # Seg Neutrophils # Man Lymphocytes # (Manual) Monocytes # (Manual) Eosinophils # (Manual) Basophils # (Manual) PT INR Fibrinogen dRVVT Confirm Interp Factor V Activity POC ABG pH 7.582 H POC ABG pCO2 27.4 L POC ABG pO2 110 H ABG pO2 ABG HCO3 ABG Base Excess ABG Hemoglobin Oxyhemoglobin Sodium Potassium Chloride Carbon Dioxide BUN Creatinine Glucose POC Glucose 121 H 133 H Lactic Acid Calcium Phosphorus Magnesium Direct Bilirubin AST ALT Alkaline Phosphatase Lactate Dehydrogenase Troponin T C-Reactive Protein Total Protein Albumin Prealbumin Triglycerides Cholesterol LDL Cholesterol Direct HDL Cholesterol Urine pH Urine WBC (Auto) Urine Creatinine Urine Total Protein Fluid Total Protein Vancomycin Trough Rheumatoid Factor Complement C4 Miscellaneous Test Crossmatch 10/16/16 10/17/16 10/17/16 20:48 04:24 04:24 WBC 21.4 H RBC 2.72 L Hgb 8.0 L Hct 25.2 L MCV MCH MCHC RDW 18.0 H Plt Count Lymph % (Auto) [place] % (Auto) Lymph # [place] # Baso # Seg Neutrophils % Seg Neuts % (Manual) Lymphocytes % (Manual) Monocytes % (Manual) Eosinophils % (Manual) Basophils % (Manual) Nucleated RBC % Seg Neutrophils # Seg Neutrophils # Man Lymphocytes # (Manual) Monocytes # (Manual) Eosinophils # (Manual) Basophils # (Manual) PT INR Fibrinogen dRVVT Confirm Interp Factor V Activity POC ABG pH 7.561 H POC ABG pCO2 24.4 L POC ABG pO2 77 L ABG pO2 ABG HCO3 ABG Base Excess ABG Hemoglobin Oxyhemoglobin Sodium 148 H Potassium Chloride Carbon Dioxide BUN 104 H Creatinine 3.0 H Glucose 149 H POC Glucose Lactic Acid Calcium Phosphorus Magnesium Direct Bilirubin AST ALT Alkaline Phosphatase 138 H Lactate Dehydrogenase Troponin T C-Reactive Protein Total Protein 6.2 L Albumin 1.5 L Prealbumin Triglycerides Cholesterol LDL Cholesterol Direct HDL Cholesterol Urine pH Urine WBC (Auto) Urine Creatinine Urine Total Protein Fluid Total Protein Vancomycin Trough Rheumatoid Factor Complement C4 Miscellaneous Test Crossmatch 10/17/16 10/17/16 10/17/16 06:02 12:17 17:14 WBC RBC Hgb Hct MCV MCH MCHC RDW Plt Count Lymph % (Auto) [place] % (Auto) Lymph # [place] # Baso # Seg Neutrophils % Seg Neuts % (Manual) Lymphocytes % (Manual) Monocytes % (Manual) Eosinophils % (Manual) Basophils % (Manual) Nucleated RBC % Seg Neutrophils # Seg Neutrophils # Man Lymphocytes # (Manual) Monocytes # (Manual) Eosinophils # (Manual) Basophils # (Manual) PT INR Fibrinogen dRVVT Confirm Interp Factor V Activity POC ABG pH POC ABG pCO2 POC ABG pO2 ABG pO2 ABG HCO3 ABG Base Excess ABG Hemoglobin Oxyhemoglobin Sodium Potassium Chloride Carbon Dioxide BUN Creatinine Glucose POC Glucose 170 H 167 H 126 H Lactic Acid Calcium Phosphorus Magnesium Direct Bilirubin AST ALT Alkaline Phosphatase Lactate Dehydrogenase Troponin T C-Reactive Protein Total Protein Albumin Prealbumin Triglycerides Cholesterol LDL Cholesterol Direct HDL Cholesterol Urine pH Urine WBC (Auto) Urine Creatinine Urine Total Protein Fluid Total Protein Vancomycin Trough Rheumatoid Factor Complement C4 Miscellaneous Test Crossmatch 10/17/16 10/18/16 10/18/16 23:17 04:00 04:00 WBC 20.7 H RBC 2.47 L Hgb 7.4 L Hct 22.9 L MCV MCH MCHC RDW 17.5 H Plt Count Lymph % (Auto) [place] % (Auto) Lymph # [place] # Baso # Seg Neutrophils % Seg Neuts % (Manual) Lymphocytes % (Manual) Monocytes % (Manual) Eosinophils % (Manual) Basophils % (Manual) Nucleated RBC % Seg Neutrophils # Seg Neutrophils # Man Lymphocytes # (Manual) Monocytes # (Manual) Eosinophils # (Manual) Basophils # (Manual) PT INR Fibrinogen dRVVT Confirm Interp Factor V Activity POC ABG pH POC ABG pCO2 POC ABG pO2 ABG pO2 ABG HCO3 ABG Base Excess ABG Hemoglobin Oxyhemoglobin Sodium 149 H Potassium Chloride 107.9 H Carbon Dioxide 20 L BUN 117 H Creatinine 3.2 H Glucose 119 H POC Glucose 121 H Lactic Acid Calcium Phosphorus Magnesium Direct Bilirubin AST ALT Alkaline Phosphatase Lactate Dehydrogenase Troponin T C-Reactive Protein Total Protein Albumin Prealbumin Triglycerides Cholesterol LDL Cholesterol Direct HDL Cholesterol Urine pH Urine WBC (Auto) Urine Creatinine Urine Total Protein Fluid Total Protein Vancomycin Trough Rheumatoid Factor Complement C4 Miscellaneous Test Crossmatch 10/18/16 10/18/16 10/18/16 05:23 10:46 17:30 WBC RBC Hgb Hct MCV MCH MCHC RDW Plt Count Lymph % (Auto) [place] % (Auto) Lymph # [place] # Baso # Seg Neutrophils % Seg Neuts % (Manual) Lymphocytes % (Manual) Monocytes % (Manual) Eosinophils % (Manual) Basophils % (Manual) Nucleated RBC % Seg Neutrophils # Seg Neutrophils # Man Lymphocytes # (Manual) Monocytes # (Manual) Eosinophils # (Manual) Basophils # (Manual) PT INR Fibrinogen dRVVT Confirm Interp Factor V Activity POC ABG pH POC ABG pCO2 POC ABG pO2 ABG pO2 ABG HCO3 ABG Base Excess ABG Hemoglobin Oxyhemoglobin Sodium Potassium Chloride Carbon Dioxide BUN Creatinine Glucose POC Glucose 119 H 155 H 124 H Lactic Acid Calcium Phosphorus Magnesium Direct Bilirubin AST ALT Alkaline Phosphatase Lactate Dehydrogenase Troponin T C-Reactive Protein Total Protein Albumin Prealbumin Triglycerides Cholesterol LDL Cholesterol Direct HDL Cholesterol Urine pH Urine WBC (Auto) Urine Creatinine Urine Total Protein Fluid Total Protein Vancomycin Trough Rheumatoid Factor Complement C4 Miscellaneous Test Crossmatch 10/19/16 10/19/16 10/19/16 04:00 04:00 05:25 WBC 17.4 H RBC 2.54 L Hgb 7.7 L Hct 23.6 L MCV MCH MCHC RDW 17.3 H Plt Count Lymph % (Auto) [place] % (Auto) Lymph # [place] # Baso # Seg Neutrophils % Seg Neuts % (Manual) Lymphocytes % (Manual) Monocytes % (Manual) Eosinophils % (Manual) Basophils % (Manual) Nucleated RBC % Seg Neutrophils # Seg Neutrophils # Man Lymphocytes # (Manual) Monocytes # (Manual) Eosinophils # (Manual) Basophils # (Manual) PT INR Fibrinogen dRVVT Confirm Interp Factor V Activity POC ABG pH POC ABG pCO2 POC ABG pO2 ABG pO2 ABG HCO3 ABG Base Excess ABG Hemoglobin Oxyhemoglobin Sodium Potassium Chloride Carbon Dioxide BUN 72 H Creatinine 2.1 H Glucose 116 H POC Glucose 119 H Lactic Acid Calcium Phosphorus Magnesium Direct Bilirubin AST ALT Alkaline Phosphatase Lactate Dehydrogenase Troponin T C-Reactive Protein Total Protein Albumin Prealbumin Triglycerides Cholesterol LDL Cholesterol Direct HDL Cholesterol Urine pH Urine WBC (Auto) Urine Creatinine Urine Total Protein Fluid Total Protein Vancomycin Trough Rheumatoid Factor Complement C4 Miscellaneous Test Crossmatch 10/19/16 10/19/16 10/20/16 11:46 23:59 06:00 WBC RBC Hgb Hct MCV MCH MCHC RDW Plt Count Lymph % (Auto) [place] % (Auto) Lymph # [place] # Baso # Seg Neutrophils % Seg Neuts % (Manual) Lymphocytes % (Manual) Monocytes % (Manual) Eosinophils % (Manual) Basophils % (Manual) Nucleated RBC % Seg Neutrophils # Seg Neutrophils # Man Lymphocytes # (Manual) Monocytes # (Manual) Eosinophils # (Manual) Basophils # (Manual) PT INR Fibrinogen dRVVT Confirm Interp Factor V Activity POC ABG pH POC ABG pCO2 POC ABG pO2 ABG pO2 ABG HCO3 ABG Base Excess ABG Hemoglobin Oxyhemoglobin Sodium Potassium Chloride Carbon Dioxide 17 L BUN 94 H Creatinine 2.7 H Glucose POC Glucose 116 H 117 H Lactic Acid Calcium Phosphorus Magnesium Direct Bilirubin AST ALT Alkaline Phosphatase Lactate Dehydrogenase Troponin T C-Reactive Protein Total Protein Albumin Prealbumin Triglycerides Cholesterol LDL Cholesterol Direct HDL Cholesterol Urine pH Urine WBC (Auto) Urine Creatinine Urine Total Protein Fluid Total Protein Vancomycin Trough Rheumatoid Factor Complement C4 Miscellaneous Test Crossmatch 10/20/16 10/20/16 10/20/16 06:00 11:49 16:00 WBC 19.7 H RBC 2.51 L Hgb 7.7 L Hct 23.5 L MCV MCH MCHC RDW 17.5 H Plt Count Lymph % (Auto) [place] % (Auto) Lymph # [place] # Baso # Seg Neutrophils % Seg Neuts % (Manual) Lymphocytes % (Manual) Monocytes % (Manual) Eosinophils % (Manual) Basophils % (Manual) Nucleated RBC % Seg Neutrophils # Seg Neutrophils # Man Lymphocytes # (Manual) Monocytes # (Manual) Eosinophils # (Manual) Basophils # (Manual) PT INR Fibrinogen dRVVT Confirm Interp Factor V Activity POC ABG pH POC ABG pCO2 POC ABG pO2 ABG pO2 ABG HCO3 ABG Base Excess ABG Hemoglobin Oxyhemoglobin Sodium Potassium Chloride Carbon Dioxide BUN Creatinine Glucose POC Glucose 117 H Lactic Acid Calcium Phosphorus Magnesium Direct Bilirubin AST ALT Alkaline Phosphatase Lactate Dehydrogenase Troponin T C-Reactive Protein Total Protein Albumin Prealbumin Triglycerides Cholesterol LDL Cholesterol Direct HDL Cholesterol Urine pH Urine WBC (Auto) Urine Creatinine Urine Total Protein Fluid Total Protein Vancomycin Trough Rheumatoid Factor Complement C4 Miscellaneous Test Flexitest 1 H Crossmatch 10/20/16 10/20/16 10/21/16 18:36 23:39 04:00 WBC RBC Hgb Hct MCV MCH MCHC RDW Plt Count Lymph % (Auto) [place] % (Auto) Lymph # [place] # Baso # Seg Neutrophils % Seg Neuts % (Manual) Lymphocytes % (Manual) Monocytes % (Manual) Eosinophils % (Manual) Basophils % (Manual) Nucleated RBC % Seg Neutrophils # Seg Neutrophils # Man Lymphocytes # (Manual) Monocytes # (Manual) Eosinophils # (Manual) Basophils # (Manual) PT INR Fibrinogen dRVVT Confirm Interp Factor V Activity POC ABG pH POC ABG pCO2 POC ABG pO2 ABG pO2 ABG HCO3 ABG Base Excess ABG Hemoglobin Oxyhemoglobin Sodium Potassium 5.4 H D Chloride Carbon Dioxide 15 L BUN 110 H Creatinine 3.0 H Glucose POC Glucose 127 H 114 H Lactic Acid Calcium Phosphorus Magnesium Direct Bilirubin AST ALT Alkaline Phosphatase Lactate Dehydrogenase Troponin T C-Reactive Protein Total Protein Albumin Prealbumin Triglycerides Cholesterol LDL Cholesterol Direct HDL Cholesterol Urine pH Urine WBC (Auto) Urine Creatinine Urine Total Protein Fluid Total Protein Vancomycin Trough Rheumatoid Factor Complement C4 Miscellaneous Test Crossmatch 10/21/16 10/21/16 10/22/16 05:54 23:46 05:18 WBC RBC Hgb Hct MCV MCH MCHC RDW Plt Count Lymph % (Auto) [place] % (Auto) Lymph # [place] # Baso # Seg Neutrophils % Seg Neuts % (Manual) Lymphocytes % (Manual) Monocytes % (Manual) Eosinophils % (Manual) Basophils % (Manual) Nucleated RBC % Seg Neutrophils # Seg Neutrophils # Man Lymphocytes # (Manual) Monocytes # (Manual) Eosinophils # (Manual) Basophils # (Manual) PT INR Fibrinogen dRVVT Confirm Interp Factor V Activity POC ABG pH POC ABG pCO2 POC ABG pO2 ABG pO2 ABG HCO3 ABG Base Excess ABG Hemoglobin Oxyhemoglobin Sodium Potassium Chloride Carbon Dioxide BUN Creatinine Glucose POC Glucose 119 H 108 H 109 H Lactic Acid Calcium Phosphorus Magnesium Direct Bilirubin AST ALT Alkaline Phosphatase Lactate Dehydrogenase Troponin T C-Reactive Protein Total Protein Albumin Prealbumin Triglycerides Cholesterol LDL Cholesterol Direct HDL Cholesterol Urine pH Urine WBC (Auto) Urine Creatinine Urine Total Protein Fluid Total Protein Vancomycin Trough Rheumatoid Factor Complement C4 Miscellaneous Test Crossmatch 10/22/16 10/22/16 10/22/16 06:40 06:40 06:40 WBC 14.0 H RBC 2.03 L Hgb 7.0 L Hct 20.5 L MCV 98 H MCH 34 H MCHC 35 H RDW 17.8 H Plt Count Lymph % (Auto) [place] % (Auto) 9.9 H Lymph # [place] # 1.4 H Baso # 0.2 H Seg Neutrophils % 72.0 H Seg Neuts % (Manual) Lymphocytes % (Manual) Monocytes % (Manual) Eosinophils % (Manual) Basophils % (Manual) Nucleated RBC % Seg Neutrophils # 10.0 H Seg Neutrophils # Man Lymphocytes # (Manual) Monocytes # (Manual) Eosinophils # (Manual) Basophils # (Manual) PT INR Fibrinogen dRVVT Confirm Interp Factor V Activity POC ABG pH POC ABG pCO2 POC ABG pO2 ABG pO2 ABG HCO3 ABG Base Excess ABG Hemoglobin Oxyhemoglobin Sodium 130 L D Potassium Chloride 92.4 L Carbon Dioxide 20 L BUN 50 H Creatinine 1.6 H Glucose 589 H* POC Glucose Lactic Acid Calcium 7.8 L D Phosphorus Magnesium 1.60 L Direct Bilirubin AST ALT Alkaline Phosphatase Lactate Dehydrogenase Troponin T C-Reactive Protein Total Protein Albumin Prealbumin Triglycerides Cholesterol LDL Cholesterol Direct HDL Cholesterol Urine pH Urine WBC (Auto) Urine Creatinine Urine Total Protein Fluid Total Protein Vancomycin Trough Rheumatoid Factor Complement C4 Miscellaneous Test Crossmatch 10/22/16 10/22/16 10/22/16 11:39 16:44 23:36 WBC RBC Hgb Hct MCV MCH MCHC RDW Plt Count Lymph % (Auto) [place] % (Auto) Lymph # [place] # Baso # Seg Neutrophils % Seg Neuts % (Manual) Lymphocytes % (Manual) Monocytes % (Manual) Eosinophils % (Manual) Basophils % (Manual) Nucleated RBC % Seg Neutrophils # Seg Neutrophils # Man Lymphocytes # (Manual) Monocytes # (Manual) Eosinophils # (Manual) Basophils # (Manual) PT INR Fibrinogen dRVVT Confirm Interp Factor V Activity POC ABG pH POC ABG pCO2 POC ABG pO2 ABG pO2 ABG HCO3 ABG Base Excess ABG Hemoglobin Oxyhemoglobin Sodium Potassium Chloride Carbon Dioxide BUN Creatinine Glucose POC Glucose 142 H 163 H 123 H Lactic Acid Calcium Phosphorus Magnesium Direct Bilirubin AST ALT Alkaline Phosphatase Lactate Dehydrogenase Troponin T C-Reactive Protein Total Protein Albumin Prealbumin Triglycerides Cholesterol LDL Cholesterol Direct HDL Cholesterol Urine pH Urine WBC (Auto) Urine Creatinine Urine Total Protein Fluid Total Protein Vancomycin Trough Rheumatoid Factor Complement C4 Miscellaneous Test Crossmatch 10/23/16 10/23/16 10/23/16 04:58 06:00 12:12 WBC RBC Hgb Hct MCV MCH MCHC RDW Plt Count Lymph % (Auto) [place] % (Auto) Lymph # [place] # Baso # Seg Neutrophils % Seg Neuts % (Manual) Lymphocytes % (Manual) Monocytes % (Manual) Eosinophils % (Manual) Basophils % (Manual) Nucleated RBC % Seg Neutrophils # Seg Neutrophils # Man Lymphocytes # (Manual) Monocytes # (Manual) Eosinophils # (Manual) Basophils # (Manual) PT INR Fibrinogen dRVVT Confirm Interp Factor V Activity POC ABG pH POC ABG pCO2 POC ABG pO2 ABG pO2 ABG HCO3 ABG Base Excess ABG Hemoglobin Oxyhemoglobin Sodium 133 L Potassium 3.5 L Chloride 96.1 L Carbon Dioxide 18 L BUN 76 H Creatinine 2.1 H Glucose POC Glucose 133 H 138 H Lactic Acid Calcium 8.3 L Phosphorus Magnesium Direct Bilirubin AST ALT Alkaline Phosphatase Lactate Dehydrogenase Troponin T C-Reactive Protein Total Protein Albumin Prealbumin Triglycerides Cholesterol LDL Cholesterol Direct HDL Cholesterol Urine pH Urine WBC (Auto) Urine Creatinine Urine Total Protein Fluid Total Protein Vancomycin Trough Rheumatoid Factor Complement C4 Miscellaneous Test Crossmatch 10/23/16 10/23/16 10/24/16 16:53 23:37 04:00 WBC RBC Hgb Hct MCV MCH MCHC RDW Plt Count Lymph % (Auto) [place] % (Auto) Lymph # [place] # Baso # Seg Neutrophils % Seg Neuts % (Manual) Lymphocytes % (Manual) Monocytes % (Manual) Eosinophils % (Manual) Basophils % (Manual) Nucleated RBC % Seg Neutrophils # Seg Neutrophils # Man Lymphocytes # (Manual) Monocytes # (Manual) Eosinophils # (Manual) Basophils # (Manual) PT INR Fibrinogen dRVVT Confirm Interp Factor V Activity POC ABG pH POC ABG pCO2 POC ABG pO2 ABG pO2 ABG HCO3 ABG Base Excess ABG Hemoglobin Oxyhemoglobin Sodium 131 L Potassium Chloride 94.5 L Carbon Dioxide 19 L BUN 97 H Creatinine 2.6 H Glucose 110 H POC Glucose 125 H 123 H Lactic Acid Calcium 8.3 L Phosphorus Magnesium Direct Bilirubin AST ALT Alkaline Phosphatase Lactate Dehydrogenase Troponin T C-Reactive Protein Total Protein Albumin Prealbumin Triglycerides Cholesterol LDL Cholesterol Direct HDL Cholesterol Urine pH Urine WBC (Auto) Urine Creatinine Urine Total Protein Fluid Total Protein Vancomycin Trough Rheumatoid Factor Complement C4 Miscellaneous Test Crossmatch 10/24/16 10/24/16 10/24/16 07:49 11:39 17:52 WBC RBC Hgb 6.0 L Hct 19.7 L* MCV MCH MCHC RDW Plt Count Lymph % (Auto) [place] % (Auto) Lymph # [place] # Baso # Seg Neutrophils % Seg Neuts % (Manual) Lymphocytes % (Manual) Monocytes % (Manual) Eosinophils % (Manual) Basophils % (Manual) Nucleated RBC % Seg Neutrophils # Seg Neutrophils # Man Lymphocytes # (Manual) Monocytes # (Manual) Eosinophils # (Manual) Basophils # (Manual) PT INR Fibrinogen dRVVT Confirm Interp Factor V Activity POC ABG pH POC ABG pCO2 POC ABG pO2 ABG pO2 ABG HCO3 ABG Base Excess ABG Hemoglobin Oxyhemoglobin Sodium Potassium Chloride Carbon Dioxide BUN Creatinine Glucose POC Glucose 106 H 158 H Lactic Acid Calcium Phosphorus Magnesium Direct Bilirubin AST ALT Alkaline Phosphatase Lactate Dehydrogenase Troponin T C-Reactive Protein Total Protein Albumin Prealbumin Triglycerides Cholesterol LDL Cholesterol Direct HDL Cholesterol Urine pH Urine WBC (Auto) Urine Creatinine Urine Total Protein Fluid Total Protein Vancomycin Trough Rheumatoid Factor Complement C4 Miscellaneous Test Crossmatch 10/24/16 10/24/16 10/24/16 20:00 22:27 Unknown WBC RBC Hgb 9.4 L D Hct 27.5 L D MCV MCH MCHC RDW Plt Count Lymph % (Auto) [place] % (Auto) Lymph # [place] # Baso # Seg Neutrophils % Seg Neuts % (Manual) Lymphocytes % (Manual) Monocytes % (Manual) Eosinophils % (Manual) Basophils % (Manual) Nucleated RBC % Seg Neutrophils # Seg Neutrophils # Man Lymphocytes # (Manual) Monocytes # (Manual) Eosinophils # (Manual) Basophils # (Manual) PT INR Fibrinogen dRVVT Confirm Interp Factor V Activity POC ABG pH POC ABG pCO2 POC ABG pO2 ABG pO2 ABG HCO3 ABG Base Excess ABG Hemoglobin Oxyhemoglobin Sodium Potassium Chloride Carbon Dioxide BUN Creatinine Glucose POC Glucose 125 H Lactic Acid Calcium Phosphorus Magnesium Direct Bilirubin AST ALT Alkaline Phosphatase Lactate Dehydrogenase Troponin T C-Reactive Protein Total Protein Albumin Prealbumin Triglycerides Cholesterol LDL Cholesterol Direct HDL Cholesterol Urine pH Urine WBC (Auto) Urine Creatinine Urine Total Protein Fluid Total Protein Vancomycin Trough Rheumatoid Factor Complement C4 Miscellaneous Test Crossmatch See Detail 10/25/16 10/25/16 10/25/16 04:00 04:00 04:00 WBC 14.2 H RBC 2.98 L Hgb 9.0 L Hct 26.2 L MCV MCH MCHC RDW 16.6 H Plt Count Lymph % (Auto) [place] % (Auto) 10.7 H Lymph # [place] # 1.5 H Baso # Seg Neutrophils % 73.6 H Seg Neuts % (Manual) Lymphocytes % (Manual) Monocytes % (Manual) Eosinophils % (Manual) Basophils % (Manual) Nucleated RBC % Seg Neutrophils # 10.5 H Seg Neutrophils # Man Lymphocytes # (Manual) Monocytes # (Manual) Eosinophils # (Manual) Basophils # (Manual) PT INR Fibrinogen dRVVT Confirm Interp Factor V Activity POC ABG pH POC ABG pCO2 POC ABG pO2 ABG pO2 ABG HCO3 ABG Base Excess ABG Hemoglobin Oxyhemoglobin Sodium 132 L Potassium Chloride 94.7 L Carbon Dioxide BUN 51 H Creatinine 1.6 H Glucose 130 H POC Glucose Lactic Acid Calcium 8.3 L Phosphorus 1.60 L D Magnesium Direct Bilirubin AST ALT Alkaline Phosphatase Lactate Dehydrogenase Troponin T C-Reactive Protein Total Protein Albumin Prealbumin Triglycerides Cholesterol LDL Cholesterol Direct HDL Cholesterol Urine pH Urine WBC (Auto) Urine Creatinine Urine Total Protein Fluid Total Protein Vancomycin Trough Rheumatoid Factor Complement C4 Miscellaneous Test Crossmatch 10/25/16 10/25/16 10/25/16 04:32 11:48 17:22 WBC RBC Hgb Hct MCV MCH MCHC RDW Plt Count Lymph % (Auto) [place] % (Auto) Lymph # [place] # Baso # Seg Neutrophils % Seg Neuts % (Manual) Lymphocytes % (Manual) Monocytes % (Manual) Eosinophils % (Manual) Basophils % (Manual) Nucleated RBC % Seg Neutrophils # Seg Neutrophils # Man Lymphocytes # (Manual) Monocytes # (Manual) Eosinophils # (Manual) Basophils # (Manual) PT INR Fibrinogen dRVVT Confirm Interp Factor V Activity POC ABG pH POC ABG pCO2 POC ABG pO2 ABG pO2 ABG HCO3 ABG Base Excess ABG Hemoglobin Oxyhemoglobin Sodium Potassium Chloride Carbon Dioxide BUN Creatinine Glucose POC Glucose 124 H 171 H 120 H Lactic Acid Calcium Phosphorus Magnesium Direct Bilirubin AST ALT Alkaline Phosphatase Lactate Dehydrogenase Troponin T C-Reactive Protein Total Protein Albumin Prealbumin Triglycerides Cholesterol LDL Cholesterol Direct HDL Cholesterol Urine pH Urine WBC (Auto) Urine Creatinine Urine Total Protein Fluid Total Protein Vancomycin Trough Rheumatoid Factor Complement C4 Miscellaneous Test Crossmatch 10/26/16 10/26/16 10/26/16 04:54 07:06 07:06 WBC 16.9 H RBC 3.06 L Hgb 9.1 L Hct 26.9 L MCV MCH MCHC RDW 16.9 H Plt Count Lymph % (Auto) [place] % (Auto) Lymph # [place] # Baso # Seg Neutrophils % Seg Neuts % (Manual) 71.0 H Lymphocytes % (Manual) 5.0 L Monocytes % (Manual) 12.0 H Eosinophils % (Manual) Basophils % (Manual) Nucleated RBC % Seg Neutrophils # Seg Neutrophils # Man 12.0 H Lymphocytes # (Manual) 0.8 L Monocytes # (Manual) 2.0 H Eosinophils # (Manual) Basophils # (Manual) PT INR Fibrinogen dRVVT Confirm Interp Factor V Activity POC ABG pH POC ABG pCO2 POC ABG pO2 ABG pO2 ABG HCO3 ABG Base Excess ABG Hemoglobin Oxyhemoglobin Sodium 135 L Potassium Chloride 97.1 L Carbon Dioxide BUN 73 H Creatinine 2.2 H Glucose 117 H POC Glucose 123 H Lactic Acid Calcium Phosphorus 1.70 L Magnesium Direct Bilirubin AST ALT Alkaline Phosphatase Lactate Dehydrogenase Troponin T C-Reactive Protein Total Protein Albumin Prealbumin Triglycerides Cholesterol LDL Cholesterol Direct HDL Cholesterol Urine pH Urine WBC (Auto) Urine Creatinine Urine Total Protein Fluid Total Protein Vancomycin Trough Rheumatoid Factor Complement C4 Miscellaneous Test Crossmatch 10/26/16 10/26/16 10/26/16 12:12 17:29 23:42 WBC RBC Hgb Hct MCV MCH MCHC RDW Plt Count Lymph % (Auto) [place] % (Auto) Lymph # [place] # Baso # Seg Neutrophils % Seg Neuts % (Manual) Lymphocytes % (Manual) Monocytes % (Manual) Eosinophils % (Manual) Basophils % (Manual) Nucleated RBC % Seg Neutrophils # Seg Neutrophils # Man Lymphocytes # (Manual) Monocytes # (Manual) Eosinophils # (Manual) Basophils # (Manual) PT INR Fibrinogen dRVVT Confirm Interp Factor V Activity POC ABG pH POC ABG pCO2 POC ABG pO2 ABG pO2 ABG HCO3 ABG Base Excess ABG Hemoglobin Oxyhemoglobin Sodium Potassium Chloride Carbon Dioxide BUN Creatinine Glucose POC Glucose 126 H 161 H 118 H Lactic Acid Calcium Phosphorus Magnesium Direct Bilirubin AST ALT Alkaline Phosphatase Lactate Dehydrogenase Troponin T C-Reactive Protein Total Protein Albumin Prealbumin Triglycerides Cholesterol LDL Cholesterol Direct HDL Cholesterol Urine pH Urine WBC (Auto) Urine Creatinine Urine Total Protein Fluid Total Protein Vancomycin Trough Rheumatoid Factor Complement C4 Miscellaneous Test Crossmatch 10/27/16 10/27/16 10/27/16 05:03 06:30 06:30 WBC 13.9 H RBC 3.09 L Hgb 9.2 L Hct 27.5 L MCV MCH MCHC RDW 17.0 H Plt Count Lymph % (Auto) [place] % (Auto) Lymph # [place] # Baso # Seg Neutrophils % Seg Neuts % (Manual) 78.0 H Lymphocytes % (Manual) Monocytes % (Manual) Eosinophils % (Manual) Basophils % (Manual) Nucleated RBC % 2.0 H Seg Neutrophils # Seg Neutrophils # Man 10.8 H Lymphocytes # (Manual) Monocytes # (Manual) 1.0 H Eosinophils # (Manual) Basophils # (Manual) PT INR Fibrinogen dRVVT Confirm Interp Factor V Activity POC ABG pH POC ABG pCO2 POC ABG pO2 ABG pO2 ABG HCO3 ABG Base Excess ABG Hemoglobin Oxyhemoglobin Sodium Potassium Chloride Carbon Dioxide BUN 40 H Creatinine 1.5 H Glucose 135 H POC Glucose 107 H Lactic Acid Calcium 8.3 L Phosphorus 1.30 L D Magnesium Direct Bilirubin AST ALT Alkaline Phosphatase Lactate Dehydrogenase Troponin T C-Reactive Protein Total Protein Albumin Prealbumin Triglycerides Cholesterol LDL Cholesterol Direct HDL Cholesterol Urine pH Urine WBC (Auto) Urine Creatinine Urine Total Protein Fluid Total Protein Vancomycin Trough Rheumatoid Factor Complement C4 Miscellaneous Test Crossmatch 10/27/16 10/27/16 10/27/16 13:27 18:07 23:40 WBC RBC Hgb Hct MCV MCH MCHC RDW Plt Count Lymph % (Auto) [place] % (Auto) Lymph # [place] # Baso # Seg Neutrophils % Seg Neuts % (Manual) Lymphocytes % (Manual) Monocytes % (Manual) Eosinophils % (Manual) Basophils % (Manual) Nucleated RBC % Seg Neutrophils # Seg Neutrophils # Man Lymphocytes # (Manual) Monocytes # (Manual) Eosinophils # (Manual) Basophils # (Manual) PT INR Fibrinogen dRVVT Confirm Interp Factor V Activity POC ABG pH POC ABG pCO2 POC ABG pO2 ABG pO2 ABG HCO3 ABG Base Excess ABG Hemoglobin Oxyhemoglobin Sodium Potassium Chloride Carbon Dioxide BUN Creatinine Glucose POC Glucose 117 H 121 H 118 H Lactic Acid Calcium Phosphorus Magnesium Direct Bilirubin AST ALT Alkaline Phosphatase Lactate Dehydrogenase Troponin T C-Reactive Protein Total Protein Albumin Prealbumin Triglycerides Cholesterol LDL Cholesterol Direct HDL Cholesterol Urine pH Urine WBC (Auto) Urine Creatinine Urine Total Protein Fluid Total Protein Vancomycin Trough Rheumatoid Factor Complement C4 Miscellaneous Test Crossmatch 10/28/16 10/28/16 10/28/16 05:48 06:45 06:45 WBC 14.7 H RBC 3.05 L Hgb 9.0 L Hct 26.9 L MCV MCH MCHC RDW 16.8 H Plt Count Lymph % (Auto) 8.2 L [place] % (Auto) 8.4 H Lymph # [place] # 1.2 H Baso # Seg Neutrophils % 81.9 H Seg Neuts % (Manual) Lymphocytes % (Manual) Monocytes % (Manual) Eosinophils % (Manual) Basophils % (Manual) Nucleated RBC % Seg Neutrophils # 12.1 H Seg Neutrophils # Man Lymphocytes # (Manual) Monocytes # (Manual) Eosinophils # (Manual) Basophils # (Manual) PT INR Fibrinogen dRVVT Confirm Interp Factor V Activity POC ABG pH POC ABG pCO2 POC ABG pO2 ABG pO2 ABG HCO3 ABG Base Excess ABG Hemoglobin Oxyhemoglobin Sodium Potassium Chloride Carbon Dioxide BUN 60 H Creatinine 1.9 H Glucose 120 H POC Glucose 114 H Lactic Acid Calcium Phosphorus Magnesium Direct Bilirubin AST ALT Alkaline Phosphatase Lactate Dehydrogenase Troponin T C-Reactive Protein Total Protein Albumin Prealbumin Triglycerides Cholesterol LDL Cholesterol Direct HDL Cholesterol Urine pH Urine WBC (Auto) Urine Creatinine Urine Total Protein Fluid Total Protein Vancomycin Trough Rheumatoid Factor Complement C4 Miscellaneous Test Crossmatch 10/28/16 10/28/16 10/29/16 17:08 23:50 05:10 WBC RBC Hgb Hct MCV MCH MCHC RDW Plt Count Lymph % (Auto) [place] % (Auto) Lymph # [place] # Baso # Seg Neutrophils % Seg Neuts % (Manual) Lymphocytes % (Manual) Monocytes % (Manual) Eosinophils % (Manual) Basophils % (Manual) Nucleated RBC % Seg Neutrophils # Seg Neutrophils # Man Lymphocytes # (Manual) Monocytes # (Manual) Eosinophils # (Manual) Basophils # (Manual) PT INR Fibrinogen dRVVT Confirm Interp Factor V Activity POC ABG pH POC ABG pCO2 POC ABG pO2 ABG pO2 ABG HCO3 ABG Base Excess ABG Hemoglobin Oxyhemoglobin Sodium Potassium Chloride Carbon Dioxide BUN Creatinine Glucose POC Glucose 109 H 110 H 124 H Lactic Acid Calcium Phosphorus Magnesium Direct Bilirubin AST ALT Alkaline Phosphatase Lactate Dehydrogenase Troponin T C-Reactive Protein Total Protein Albumin Prealbumin Triglycerides Cholesterol LDL Cholesterol Direct HDL Cholesterol Urine pH Urine WBC (Auto) Urine Creatinine Urine Total Protein Fluid Total Protein Vancomycin Trough Rheumatoid Factor Complement C4 Miscellaneous Test Crossmatch 10/29/16 10/29/16 10/29/16 07:45 07:45 12:19 WBC 14.7 H RBC 3.15 L Hgb 9.3 L Hct 28.9 L MCV MCH MCHC RDW 17.0 H Plt Count Lymph % (Auto) 11.9 L [place] % (Auto) 8.6 H Lymph # [place] # 1.3 H Baso # Seg Neutrophils % 78.1 H Seg Neuts % (Manual) Lymphocytes % (Manual) Monocytes % (Manual) Eosinophils % (Manual) Basophils % (Manual) Nucleated RBC % Seg Neutrophils # 11.4 H Seg Neutrophils # Man Lymphocytes # (Manual) Monocytes # (Manual) Eosinophils # (Manual) Basophils # (Manual) PT INR Fibrinogen dRVVT Confirm Interp Factor V Activity POC ABG pH POC ABG pCO2 POC ABG pO2 ABG pO2 ABG HCO3 ABG Base Excess ABG Hemoglobin Oxyhemoglobin Sodium Potassium 5.1 H Chloride Carbon Dioxide 19 L BUN 78 H Creatinine 2.2 H Glucose 116 H POC Glucose 118 H Lactic Acid Calcium Phosphorus Magnesium Direct Bilirubin AST ALT Alkaline Phosphatase Lactate Dehydrogenase Troponin T C-Reactive Protein Total Protein Albumin Prealbumin Triglycerides Cholesterol LDL Cholesterol Direct HDL Cholesterol Urine pH Urine WBC (Auto) Urine Creatinine Urine Total Protein Fluid Total Protein Vancomycin Trough Rheumatoid Factor Complement C4 Miscellaneous Test Crossmatch 10/29/16 10/30/16 10/30/16 17:49 01:52 03:28 WBC RBC Hgb Hct MCV MCH MCHC RDW Plt Count Lymph % (Auto) [place] % (Auto) Lymph # [place] # Baso # Seg Neutrophils % Seg Neuts % (Manual) Lymphocytes % (Manual) Monocytes % (Manual) Eosinophils % (Manual) Basophils % (Manual) Nucleated RBC % Seg Neutrophils # Seg Neutrophils # Man Lymphocytes # (Manual) Monocytes # (Manual) Eosinophils # (Manual) Basophils # (Manual) PT INR Fibrinogen dRVVT Confirm Interp Factor V Activity POC ABG pH POC ABG pCO2 POC ABG pO2 ABG pO2 ABG HCO3 ABG Base Excess ABG Hemoglobin Oxyhemoglobin Sodium Potassium 5.4 H Chloride 97.5 L Carbon Dioxide 19 L BUN 90 H Creatinine 2.5 H Glucose POC Glucose 120 H 129 H Lactic Acid Calcium Phosphorus 5.20 H Magnesium Direct Bilirubin AST ALT Alkaline Phosphatase Lactate Dehydrogenase Troponin T C-Reactive Protein Total Protein Albumin Prealbumin Triglycerides Cholesterol LDL Cholesterol Direct HDL Cholesterol Urine pH Urine WBC (Auto) Urine Creatinine Urine Total Protein Fluid Total Protein Vancomycin Trough Rheumatoid Factor Complement C4 Miscellaneous Test Crossmatch 10/30/16 10/30/16 10/30/16 03:28 08:19 08:19 WBC 11.6 H 15.9 H RBC 2.75 L 2.82 L Hgb 7.9 L 8.3 L Hct 24.2 L 25.2 L MCV MCH MCHC RDW 16.7 H 17.2 H Plt Count Lymph % (Auto) [place] % (Auto) 9.8 H Lymph # [place] # 1.1 H Baso # Seg Neutrophils % 74.2 H Seg Neuts % (Manual) Lymphocytes % (Manual) Monocytes % (Manual) Eosinophils % (Manual) Basophils % (Manual) Nucleated RBC % Seg Neutrophils # 8.6 H Seg Neutrophils # Man Lymphocytes # (Manual) Monocytes # (Manual) Eosinophils # (Manual) Basophils # (Manual) PT INR Fibrinogen dRVVT Confirm Interp Factor V Activity POC ABG pH POC ABG pCO2 POC ABG pO2 ABG pO2 ABG HCO3 ABG Base Excess ABG Hemoglobin Oxyhemoglobin Sodium Potassium 5.3 H Chloride 97.4 L Carbon Dioxide 19 L BUN 93 H Creatinine 2.6 H Glucose POC Glucose Lactic Acid Calcium Phosphorus Magnesium Direct Bilirubin AST ALT Alkaline Phosphatase Lactate Dehydrogenase Troponin T C-Reactive Protein Total Protein Albumin Prealbumin Triglycerides Cholesterol LDL Cholesterol Direct HDL Cholesterol Urine pH Urine WBC (Auto) Urine Creatinine Urine Total Protein Fluid Total Protein Vancomycin Trough Rheumatoid Factor Complement C4 Miscellaneous Test Crossmatch 10/30/16 10/30/16 10/31/16 17:11 23:56 00:40 WBC RBC Hgb Hct MCV MCH MCHC RDW Plt Count Lymph % (Auto) [place] % (Auto) Lymph # [place] # Baso # Seg Neutrophils % Seg Neuts % (Manual) Lymphocytes % (Manual) Monocytes % (Manual) Eosinophils % (Manual) Basophils % (Manual) Nucleated RBC % Seg Neutrophils # Seg Neutrophils # Man Lymphocytes # (Manual) Monocytes # (Manual) Eosinophils # (Manual) Basophils # (Manual) PT INR Fibrinogen dRVVT Confirm Interp Factor V Activity POC ABG pH POC ABG pCO2 POC ABG pO2 ABG pO2 ABG HCO3 ABG Base Excess ABG Hemoglobin Oxyhemoglobin Sodium Potassium Chloride Carbon Dioxide BUN Creatinine Glucose POC Glucose 106 H 117 H 120 H Lactic Acid Calcium Phosphorus Magnesium Direct Bilirubin AST ALT Alkaline Phosphatase Lactate Dehydrogenase Troponin T C-Reactive Protein Total Protein Albumin Prealbumin Triglycerides Cholesterol LDL Cholesterol Direct HDL Cholesterol Urine pH Urine WBC (Auto) Urine Creatinine Urine Total Protein Fluid Total Protein Vancomycin Trough Rheumatoid Factor Complement C4 Miscellaneous Test Crossmatch 10/31/16 10/31/16 10/31/16 05:43 07:15 07:15 WBC 12.1 H RBC 2.63 L Hgb 7.7 L Hct 23.3 L MCV MCH MCHC RDW 16.7 H Plt Count Lymph % (Auto) 11.7 L [place] % (Auto) 7.7 H Lymph # [place] # 0.9 H Baso # Seg Neutrophils % 78.0 H Seg Neuts % (Manual) Lymphocytes % (Manual) Monocytes % (Manual) Eosinophils % (Manual) Basophils % (Manual) Nucleated RBC % Seg Neutrophils # 9.4 H Seg Neutrophils # Man Lymphocytes # (Manual) Monocytes # (Manual) Eosinophils # (Manual) Basophils # (Manual) PT INR Fibrinogen dRVVT Confirm Interp Factor V Activity POC ABG pH POC ABG pCO2 POC ABG pO2 ABG pO2 ABG HCO3 ABG Base Excess ABG Hemoglobin Oxyhemoglobin Sodium Potassium Chloride 96.4 L Carbon Dioxide 21 L BUN 99 H Creatinine 2.6 H Glucose 144 H POC Glucose 125 H Lactic Acid Calcium Phosphorus 4.80 H Magnesium Direct Bilirubin AST ALT Alkaline Phosphatase Lactate Dehydrogenase Troponin T C-Reactive Protein Total Protein Albumin Prealbumin Triglycerides Cholesterol LDL Cholesterol Direct HDL Cholesterol Urine pH Urine WBC (Auto) Urine Creatinine Urine Total Protein Fluid Total Protein Vancomycin Trough Rheumatoid Factor Complement C4 Miscellaneous Test Crossmatch 10/31/16 10/31/16 11/01/16 11:46 18:34 00:20 WBC RBC Hgb Hct MCV MCH MCHC RDW Plt Count Lymph % (Auto) [place] % (Auto) Lymph # [place] # Baso # Seg Neutrophils % Seg Neuts % (Manual) Lymphocytes % (Manual) Monocytes % (Manual) Eosinophils % (Manual) Basophils % (Manual) Nucleated RBC % Seg Neutrophils # Seg Neutrophils # Man Lymphocytes # (Manual) Monocytes # (Manual) Eosinophils # (Manual) Basophils # (Manual) PT INR Fibrinogen dRVVT Confirm Interp Factor V Activity POC ABG pH POC ABG pCO2 POC ABG pO2 ABG pO2 ABG HCO3 ABG Base Excess ABG Hemoglobin Oxyhemoglobin Sodium Potassium Chloride Carbon Dioxide BUN Creatinine Glucose POC Glucose 159 H 140 H 132 H Lactic Acid Calcium Phosphorus Magnesium Direct Bilirubin AST ALT Alkaline Phosphatase Lactate Dehydrogenase Troponin T C-Reactive Protein Total Protein Albumin Prealbumin Triglycerides Cholesterol LDL Cholesterol Direct HDL Cholesterol Urine pH Urine WBC (Auto) Urine Creatinine Urine Total Protein Fluid Total Protein Vancomycin Trough Rheumatoid Factor Complement C4 Miscellaneous Test Crossmatch 11/01/16 11/01/16 11/01/16 04:55 04:55 06:11 WBC 11.2 H RBC 2.68 L Hgb 7.5 L Hct 23.7 L MCV MCH MCHC RDW 16.1 H Plt Count Lymph % (Auto) [place] % (Auto) 9.8 H Lymph # [place] # 1.1 H Baso # Seg Neutrophils % 70.8 H Seg Neuts % (Manual) Lymphocytes % (Manual) Monocytes % (Manual) Eosinophils % (Manual) Basophils % (Manual) Nucleated RBC % Seg Neutrophils # 7.9 H Seg Neutrophils # Man Lymphocytes # (Manual) Monocytes # (Manual) Eosinophils # (Manual) Basophils # (Manual) PT INR Fibrinogen dRVVT Confirm Interp Factor V Activity POC ABG pH POC ABG pCO2 POC ABG pO2 ABG pO2 ABG HCO3 ABG Base Excess ABG Hemoglobin Oxyhemoglobin Sodium Potassium 3.3 L D Chloride Carbon Dioxide BUN 61 H Creatinine 1.9 H Glucose 114 H POC Glucose 115 H Lactic Acid Calcium Phosphorus 1.80 L D Magnesium Direct Bilirubin AST ALT Alkaline Phosphatase Lactate Dehydrogenase Troponin T C-Reactive Protein Total Protein Albumin Prealbumin Triglycerides Cholesterol LDL Cholesterol Direct HDL Cholesterol Urine pH Urine WBC (Auto) Urine Creatinine Urine Total Protein Fluid Total Protein Vancomycin Trough Rheumatoid Factor Complement C4 Miscellaneous Test Crossmatch 11/01/16 11/01/16 11/01/16 12:29 18:23 23:58 WBC RBC Hgb Hct MCV MCH MCHC RDW Plt Count Lymph % (Auto) [place] % (Auto) Lymph # [place] # Baso # Seg Neutrophils % Seg Neuts % (Manual) Lymphocytes % (Manual) Monocytes % (Manual) Eosinophils % (Manual) Basophils % (Manual) Nucleated RBC % Seg Neutrophils # Seg Neutrophils # Man Lymphocytes # (Manual) Monocytes # (Manual) Eosinophils # (Manual) Basophils # (Manual) PT INR Fibrinogen dRVVT Confirm Interp Factor V Activity POC ABG pH POC ABG pCO2 POC ABG pO2 ABG pO2 ABG HCO3 ABG Base Excess ABG Hemoglobin Oxyhemoglobin Sodium Potassium Chloride Carbon Dioxide BUN Creatinine Glucose POC Glucose 142 H 143 H 128 H Lactic Acid Calcium Phosphorus Magnesium Direct Bilirubin AST ALT Alkaline Phosphatase Lactate Dehydrogenase Troponin T C-Reactive Protein Total Protein Albumin Prealbumin Triglycerides Cholesterol LDL Cholesterol Direct HDL Cholesterol Urine pH Urine WBC (Auto) Urine Creatinine Urine Total Protein Fluid Total Protein Vancomycin Trough Rheumatoid Factor Complement C4 Miscellaneous Test Crossmatch 11/02/16 11/02/16 11/02/16 04:16 05:29 11:58 WBC RBC Hgb Hct MCV MCH MCHC RDW Plt Count Lymph % (Auto) [place] % (Auto) Lymph # [place] # Baso # Seg Neutrophils % Seg Neuts % (Manual) Lymphocytes % (Manual) Monocytes % (Manual) Eosinophils % (Manual) Basophils % (Manual) Nucleated RBC % Seg Neutrophils # Seg Neutrophils # Man Lymphocytes # (Manual) Monocytes # (Manual) Eosinophils # (Manual) Basophils # (Manual) PT INR Fibrinogen dRVVT Confirm Interp Factor V Activity POC ABG pH POC ABG pCO2 POC ABG pO2 ABG pO2 ABG HCO3 ABG Base Excess ABG Hemoglobin Oxyhemoglobin Sodium Potassium 3.1 L Chloride Carbon Dioxide BUN 73 H Creatinine 2.3 H Glucose 112 H POC Glucose 135 H 149 H Lactic Acid Calcium Phosphorus Magnesium Direct Bilirubin AST ALT Alkaline Phosphatase Lactate Dehydrogenase Troponin T C-Reactive Protein Total Protein Albumin Prealbumin Triglycerides Cholesterol LDL Cholesterol Direct HDL Cholesterol Urine pH Urine WBC (Auto) Urine Creatinine Urine Total Protein Fluid Total Protein Vancomycin Trough Rheumatoid Factor Complement C4 Miscellaneous Test Crossmatch 11/02/16 11/02/16 11/03/16 17:42 22:54 06:00 WBC RBC Hgb Hct MCV MCH MCHC RDW Plt Count Lymph % (Auto) [place] % (Auto) Lymph # [place] # Baso # Seg Neutrophils % Seg Neuts % (Manual) Lymphocytes % (Manual) Monocytes % (Manual) Eosinophils % (Manual) Basophils % (Manual) Nucleated RBC % Seg Neutrophils # Seg Neutrophils # Man Lymphocytes # (Manual) Monocytes # (Manual) Eosinophils # (Manual) Basophils # (Manual) PT INR Fibrinogen dRVVT Confirm Interp Factor V Activity POC ABG pH POC ABG pCO2 POC ABG pO2 ABG pO2 ABG HCO3 ABG Base Excess ABG Hemoglobin Oxyhemoglobin Sodium Potassium Chloride 96.7 L Carbon Dioxide BUN 41 H Creatinine 1.5 H Glucose 145 H POC Glucose 182 H 115 H Lactic Acid Calcium Phosphorus 1.60 L D Magnesium 1.50 L Direct Bilirubin AST ALT Alkaline Phosphatase Lactate Dehydrogenase Troponin T C-Reactive Protein Total Protein Albumin Prealbumin Triglycerides Cholesterol LDL Cholesterol Direct HDL Cholesterol Urine pH Urine WBC (Auto) Urine Creatinine Urine Total Protein Fluid Total Protein Vancomycin Trough Rheumatoid Factor Complement C4 Miscellaneous Test Crossmatch 11/03/16 11/03/16 11/03/16 11:53 17:45 23:37 WBC RBC Hgb Hct MCV MCH MCHC RDW Plt Count Lymph % (Auto) [place] % (Auto) Lymph # [place] # Baso # Seg Neutrophils % Seg Neuts % (Manual) Lymphocytes % (Manual) Monocytes % (Manual) Eosinophils % (Manual) Basophils % (Manual) Nucleated RBC % Seg Neutrophils # Seg Neutrophils # Man Lymphocytes # (Manual) Monocytes # (Manual) Eosinophils # (Manual) Basophils # (Manual) PT INR Fibrinogen dRVVT Confirm Interp Factor V Activity POC ABG pH POC ABG pCO2 POC ABG pO2 ABG pO2 ABG HCO3 ABG Base Excess ABG Hemoglobin Oxyhemoglobin Sodium Potassium Chloride Carbon Dioxide BUN Creatinine Glucose POC Glucose 131 H 134 H 113 H Lactic Acid Calcium Phosphorus Magnesium Direct Bilirubin AST ALT Alkaline Phosphatase Lactate Dehydrogenase Troponin T C-Reactive Protein Total Protein Albumin Prealbumin Triglycerides Cholesterol LDL Cholesterol Direct HDL Cholesterol Urine pH Urine WBC (Auto) Urine Creatinine Urine Total Protein Fluid Total Protein Vancomycin Trough Rheumatoid Factor Complement C4 Miscellaneous Test Crossmatch 11/04/16 11/04/16 11/04/16 05:41 06:00 12:10 WBC RBC Hgb Hct MCV MCH MCHC RDW Plt Count Lymph % (Auto) [place] % (Auto) Lymph # [place] # Baso # Seg Neutrophils % Seg Neuts % (Manual) Lymphocytes % (Manual) Monocytes % (Manual) Eosinophils % (Manual) Basophils % (Manual) Nucleated RBC % Seg Neutrophils # Seg Neutrophils # Man Lymphocytes # (Manual) Monocytes # (Manual) Eosinophils # (Manual) Basophils # (Manual) PT INR Fibrinogen dRVVT Confirm Interp Factor V Activity POC ABG pH POC ABG pCO2 POC ABG pO2 ABG pO2 ABG HCO3 ABG Base Excess ABG Hemoglobin Oxyhemoglobin Sodium Potassium Chloride 96.7 L Carbon Dioxide BUN 52 H Creatinine 1.9 H Glucose 126 H POC Glucose 137 H 191 H Lactic Acid Calcium Phosphorus Magnesium Direct Bilirubin AST ALT Alkaline Phosphatase Lactate Dehydrogenase Troponin T C-Reactive Protein Total Protein Albumin Prealbumin Triglycerides Cholesterol LDL Cholesterol Direct HDL Cholesterol Urine pH Urine WBC (Auto) Urine Creatinine Urine Total Protein Fluid Total Protein Vancomycin Trough Rheumatoid Factor Complement C4 Miscellaneous Test Crossmatch 11/04/16 11/05/16 11/05/16 22:57 03:10 05:10 WBC RBC Hgb Hct MCV MCH MCHC RDW Plt Count Lymph % (Auto) [place] % (Auto) Lymph # [place] # Baso # Seg Neutrophils % Seg Neuts % (Manual) Lymphocytes % (Manual) Monocytes % (Manual) Eosinophils % (Manual) Basophils % (Manual) Nucleated RBC % Seg Neutrophils # Seg Neutrophils # Man Lymphocytes # (Manual) Monocytes # (Manual) Eosinophils # (Manual) Basophils # (Manual) PT INR Fibrinogen dRVVT Confirm Interp Factor V Activity POC ABG pH POC ABG pCO2 POC ABG pO2 ABG pO2 ABG HCO3 ABG Base Excess ABG Hemoglobin Oxyhemoglobin Sodium 136 L Potassium Chloride 97.2 L Carbon Dioxide BUN 32 H Creatinine 1.3 H Glucose 123 H POC Glucose 125 H 108 H Lactic Acid Calcium 7.8 L Phosphorus Magnesium Direct Bilirubin AST ALT Alkaline Phosphatase Lactate Dehydrogenase Troponin T C-Reactive Protein Total Protein Albumin Prealbumin Triglycerides Cholesterol LDL Cholesterol Direct HDL Cholesterol Urine pH Urine WBC (Auto) Urine Creatinine Urine Total Protein Fluid Total Protein Vancomycin Trough Rheumatoid Factor Complement C4 Miscellaneous Test Crossmatch 11/05/16 11/05/16 11/05/16 12:23 13:09 13:25 WBC RBC Hgb Hct MCV MCH MCHC RDW Plt Count Lymph % (Auto) [place] % (Auto) Lymph # [place] # Baso # Seg Neutrophils % Seg Neuts % (Manual) Lymphocytes % (Manual) Monocytes % (Manual) Eosinophils % (Manual) Basophils % (Manual) Nucleated RBC % Seg Neutrophils # Seg Neutrophils # Man Lymphocytes # (Manual) Monocytes # (Manual) Eosinophils # (Manual) Basophils # (Manual) PT INR Fibrinogen dRVVT Confirm Interp Factor V Activity POC ABG pH POC ABG pCO2 POC ABG pO2 ABG pO2 ABG HCO3 ABG Base Excess ABG Hemoglobin Oxyhemoglobin Sodium Potassium Chloride Carbon Dioxide BUN Creatinine Glucose POC Glucose 124 H Lactic Acid Calcium Phosphorus Magnesium Direct Bilirubin AST ALT Alkaline Phosphatase Lactate Dehydrogenase Troponin T C-Reactive Protein 11.40 H Total Protein Albumin Prealbumin Triglycerides Cholesterol LDL Cholesterol Direct HDL Cholesterol Urine pH 9.0 H Urine WBC (Auto) Urine Creatinine Urine Total Protein Fluid Total Protein Vancomycin Trough Rheumatoid Factor Complement C4 Miscellaneous Test Crossmatch 11/05/16 11/05/16 11/05/16 13:25 17:54 23:42 WBC RBC Hgb Hct MCV MCH MCHC RDW Plt Count Lymph % (Auto) [place] % (Auto) Lymph # [place] # Baso # Seg Neutrophils % Seg Neuts % (Manual) Lymphocytes % (Manual) Monocytes % (Manual) Eosinophils % (Manual) Basophils % (Manual) Nucleated RBC % Seg Neutrophils # Seg Neutrophils # Man Lymphocytes # (Manual) Monocytes # (Manual) Eosinophils # (Manual) Basophils # (Manual) PT INR Fibrinogen dRVVT Confirm Interp Factor V Activity POC ABG pH POC ABG pCO2 POC ABG pO2 ABG pO2 ABG HCO3 ABG Base Excess ABG Hemoglobin Oxyhemoglobin Sodium Potassium Chloride Carbon Dioxide BUN Creatinine Glucose POC Glucose 114 H 134 H Lactic Acid Calcium Phosphorus Magnesium Direct Bilirubin AST ALT Alkaline Phosphatase Lactate Dehydrogenase Troponin T C-Reactive Protein Total Protein Albumin Prealbumin Triglycerides Cholesterol LDL Cholesterol Direct HDL Cholesterol Urine pH Urine WBC (Auto) Urine Creatinine Urine Total Protein Fluid Total Protein Vancomycin Trough Rheumatoid Factor Complement C4 Miscellaneous Test Flexitest 1 H Crossmatch 11/06/16 11/06/16 11/06/16 04:56 06:25 06:25 WBC RBC 2.50 L Hgb 7.3 L Hct 22.5 L MCV MCH MCHC RDW 16.9 H Plt Count Lymph % (Auto) [place] % (Auto) 10.5 H Lymph # [place] # 1.1 H Baso # Seg Neutrophils % Seg Neuts % (Manual) Lymphocytes % (Manual) Monocytes % (Manual) Eosinophils % (Manual) Basophils % (Manual) Nucleated RBC % Seg Neutrophils # Seg Neutrophils # Man Lymphocytes # (Manual) Monocytes # (Manual) Eosinophils # (Manual) Basophils # (Manual) PT INR Fibrinogen dRVVT Confirm Interp Factor V Activity POC ABG pH POC ABG pCO2 POC ABG pO2 ABG pO2 ABG HCO3 ABG Base Excess ABG Hemoglobin Oxyhemoglobin Sodium Potassium 5.1 H Chloride 95.9 L Carbon Dioxide BUN 52 H Creatinine 1.8 H Glucose 117 H POC Glucose 120 H Lactic Acid Calcium Phosphorus Magnesium Direct Bilirubin AST 103 H ALT 77 H Alkaline Phosphatase 285 H Lactate Dehydrogenase Troponin T C-Reactive Protein Total Protein 6.2 L Albumin 1.8 L Prealbumin 0.180 L Triglycerides Cholesterol LDL Cholesterol Direct HDL Cholesterol Urine pH Urine WBC (Auto) Urine Creatinine Urine Total Protein Fluid Total Protein Vancomycin Trough Rheumatoid Factor Complement C4 Miscellaneous Test Crossmatch 11/06/16 11/06/16 11/06/16 11:56 17:14 23:52 WBC RBC Hgb Hct MCV MCH MCHC RDW Plt Count Lymph % (Auto) [place] % (Auto) Lymph # [place] # Baso # Seg Neutrophils % Seg Neuts % (Manual) Lymphocytes % (Manual) Monocytes % (Manual) Eosinophils % (Manual) Basophils % (Manual) Nucleated RBC % Seg Neutrophils # Seg Neutrophils # Man Lymphocytes # (Manual) Monocytes # (Manual) Eosinophils # (Manual) Basophils # (Manual) PT INR Fibrinogen dRVVT Confirm Interp Factor V Activity POC ABG pH POC ABG pCO2 POC ABG pO2 ABG pO2 ABG HCO3 ABG Base Excess ABG Hemoglobin Oxyhemoglobin Sodium Potassium Chloride Carbon Dioxide BUN Creatinine Glucose POC Glucose 141 H 125 H 130 H Lactic Acid Calcium Phosphorus Magnesium Direct Bilirubin AST ALT Alkaline Phosphatase Lactate Dehydrogenase Troponin T C-Reactive Protein Total Protein Albumin Prealbumin Triglycerides Cholesterol LDL Cholesterol Direct HDL Cholesterol Urine pH Urine WBC (Auto) Urine Creatinine Urine Total Protein Fluid Total Protein Vancomycin Trough Rheumatoid Factor Complement C4 Miscellaneous Test Crossmatch 11/07/16 11/07/16 11/07/16 06:30 06:30 09:37 WBC RBC 2.18 L Hgb 6.3 L Hct 19.7 L* MCV MCH MCHC RDW 16.8 H Plt Count Lymph % (Auto) [place] % (Auto) 10.0 H Lymph # [place] # 1.0 H Baso # Seg Neutrophils % Seg Neuts % (Manual) Lymphocytes % (Manual) Monocytes % (Manual) Eosinophils % (Manual) Basophils % (Manual) Nucleated RBC % Seg Neutrophils # Seg Neutrophils # Man Lymphocytes # (Manual) Monocytes # (Manual) Eosinophils # (Manual) Basophils # (Manual) PT INR Fibrinogen dRVVT Confirm Interp Factor V Activity POC ABG pH POC ABG pCO2 POC ABG pO2 ABG pO2 ABG HCO3 ABG Base Excess ABG Hemoglobin Oxyhemoglobin Sodium 135 L Potassium Chloride 95.6 L Carbon Dioxide BUN 70 H Creatinine 2.0 H Glucose 126 H POC Glucose Lactic Acid Calcium Phosphorus Magnesium Direct Bilirubin AST ALT Alkaline Phosphatase Lactate Dehydrogenase Troponin T C-Reactive Protein Total Protein Albumin Prealbumin Triglycerides Cholesterol LDL Cholesterol Direct HDL Cholesterol Urine pH Urine WBC (Auto) Urine Creatinine Urine Total Protein Fluid Total Protein Vancomycin Trough Rheumatoid Factor Complement C4 Miscellaneous Test Crossmatch See Detail 11/07/16 11/07/16 11/07/16 12:52 18:51 21:26 WBC RBC Hgb Hct MCV MCH MCHC RDW Plt Count Lymph % (Auto) [place] % (Auto) Lymph # [place] # Baso # Seg Neutrophils % Seg Neuts % (Manual) Lymphocytes % (Manual) Monocytes % (Manual) Eosinophils % (Manual) Basophils % (Manual) Nucleated RBC % Seg Neutrophils # Seg Neutrophils # Man Lymphocytes # (Manual) Monocytes # (Manual) Eosinophils # (Manual) Basophils # (Manual) PT INR Fibrinogen dRVVT Confirm Interp Factor V Activity POC ABG pH 7.523 H POC ABG pCO2 34.6 L POC ABG pO2 53 L ABG pO2 ABG HCO3 ABG Base Excess ABG Hemoglobin Oxyhemoglobin Sodium Potassium Chloride Carbon Dioxide BUN Creatinine Glucose POC Glucose 142 H 155 H Lactic Acid Calcium Phosphorus Magnesium Direct Bilirubin AST ALT Alkaline Phosphatase Lactate Dehydrogenase Troponin T C-Reactive Protein Total Protein Albumin Prealbumin Triglycerides Cholesterol LDL Cholesterol Direct HDL Cholesterol Urine pH Urine WBC (Auto) Urine Creatinine Urine Total Protein Fluid Total Protein Vancomycin Trough Rheumatoid Factor Complement C4 Miscellaneous Test Crossmatch 11/07/16 11/08/16 11/08/16 21:34 13:03 23:37 WBC RBC 2.63 L Hgb 7.7 L Hct 22.7 L MCV MCH MCHC RDW 17.0 H Plt Count Lymph % (Auto) [place] % (Auto) Lymph # [place] # Baso # Seg Neutrophils % Seg Neuts % (Manual) Lymphocytes % (Manual) Monocytes % (Manual) Eosinophils % (Manual) Basophils % (Manual) Nucleated RBC % Seg Neutrophils # Seg Neutrophils # Man Lymphocytes # (Manual) Monocytes # (Manual) Eosinophils # (Manual) Basophils # (Manual) PT INR Fibrinogen dRVVT Confirm Interp Factor V Activity POC ABG pH 7.478 H POC ABG pCO2 34.0 L POC ABG pO2 50 L ABG pO2 ABG HCO3 ABG Base Excess ABG Hemoglobin Oxyhemoglobin Sodium Potassium Chloride Carbon Dioxide BUN Creatinine Glucose POC Glucose 113 H Lactic Acid Calcium Phosphorus Magnesium Direct Bilirubin AST ALT Alkaline Phosphatase Lactate Dehydrogenase Troponin T C-Reactive Protein Total Protein Albumin Prealbumin Triglycerides Cholesterol LDL Cholesterol Direct HDL Cholesterol Urine pH Urine WBC (Auto) Urine Creatinine Urine Total Protein Fluid Total Protein Vancomycin Trough Rheumatoid Factor Complement C4 Miscellaneous Test Crossmatch 11/09/16 11/09/16 11/09/16 04:35 10:15 18:21 WBC RBC 2.68 L Hgb 7.8 L Hct 23.3 L MCV MCH MCHC RDW 17.0 H Plt Count Lymph % (Auto) [place] % (Auto) 12.1 H Lymph # [place] # 1.1 H Baso # Seg Neutrophils % Seg Neuts % (Manual) Lymphocytes % (Manual) Monocytes % (Manual) Eosinophils % (Manual) Basophils % (Manual) Nucleated RBC % Seg Neutrophils # Seg Neutrophils # Man Lymphocytes # (Manual) Monocytes # (Manual) Eosinophils # (Manual) Basophils # (Manual) PT INR Fibrinogen dRVVT Confirm Interp Factor V Activity POC ABG pH POC ABG pCO2 POC ABG pO2 ABG pO2 ABG HCO3 ABG Base Excess ABG Hemoglobin Oxyhemoglobin Sodium Potassium Chloride Carbon Dioxide BUN 51 H Creatinine 1.8 H Glucose POC Glucose 60 L Lactic Acid Calcium 8.3 L Phosphorus Magnesium Direct Bilirubin AST ALT Alkaline Phosphatase Lactate Dehydrogenase Troponin T C-Reactive Protein Total Protein Albumin Prealbumin Triglycerides Cholesterol LDL Cholesterol Direct HDL Cholesterol Urine pH Urine WBC (Auto) Urine Creatinine Urine Total Protein Fluid Total Protein Vancomycin Trough Rheumatoid Factor Complement C4 Miscellaneous Test Crossmatch 11/09/16 11/10/16 11/10/16 18:55 07:00 11:51 WBC RBC Hgb Hct MCV MCH MCHC RDW Plt Count Lymph % (Auto) [place] % (Auto) Lymph # [place] # Baso # Seg Neutrophils % Seg Neuts % (Manual) Lymphocytes % (Manual) Monocytes % (Manual) Eosinophils % (Manual) Basophils % (Manual) Nucleated RBC % Seg Neutrophils # Seg Neutrophils # Man Lymphocytes # (Manual) Monocytes # (Manual) Eosinophils # (Manual) Basophils # (Manual) PT INR Fibrinogen dRVVT Confirm Interp Factor V Activity POC ABG pH POC ABG pCO2 POC ABG pO2 ABG pO2 ABG HCO3 ABG Base Excess ABG Hemoglobin Oxyhemoglobin Sodium Potassium 3.0 L D Chloride 97.4 L Carbon Dioxide BUN 28 H Creatinine 1.3 H Glucose POC Glucose 68 L 120 H Lactic Acid Calcium 7.8 L Phosphorus Magnesium Direct Bilirubin AST ALT Alkaline Phosphatase Lactate Dehydrogenase Troponin T C-Reactive Protein Total Protein Albumin Prealbumin Triglycerides Cholesterol LDL Cholesterol Direct HDL Cholesterol Urine pH Urine WBC (Auto) Urine Creatinine Urine Total Protein Fluid Total Protein Vancomycin Trough Rheumatoid Factor Complement C4 Miscellaneous Test Crossmatch 11/10/16 11/11/16 11/11/16 14:20 06:59 06:59 WBC RBC 2.81 L Hgb 8.1 L Hct 24.4 L MCV MCH MCHC RDW 16.4 H Plt Count Lymph % (Auto) [place] % (Auto) 10.8 H Lymph # [place] # 1.0 H Baso # Seg Neutrophils % Seg Neuts % (Manual) Lymphocytes % (Manual) Monocytes % (Manual) Eosinophils % (Manual) Basophils % (Manual) Nucleated RBC % Seg Neutrophils # Seg Neutrophils # Man Lymphocytes # (Manual) Monocytes # (Manual) Eosinophils # (Manual) Basophils # (Manual) PT INR Fibrinogen dRVVT Confirm Interp Factor V Activity POC ABG pH POC ABG pCO2 POC ABG pO2 ABG pO2 ABG HCO3 ABG Base Excess ABG Hemoglobin Oxyhemoglobin Sodium Potassium Chloride Carbon Dioxide BUN Creatinine Glucose POC Glucose Lactic Acid Calcium Phosphorus Magnesium Direct Bilirubin AST ALT Alkaline Phosphatase Lactate Dehydrogenase 196 H Troponin T C-Reactive Protein Total Protein 6.1 L Albumin Prealbumin Triglycerides Cholesterol LDL Cholesterol Direct HDL Cholesterol Urine pH Urine WBC (Auto) Urine Creatinine Urine Total Protein Fluid Total Protein < 3.0 L Vancomycin Trough Rheumatoid Factor Complement C4 Miscellaneous Test Crossmatch 11/11/16 11/11/16 11/12/16 06:59 09:50 04:00 WBC RBC Hgb Hct MCV MCH MCHC RDW Plt Count Lymph % (Auto) [place] % (Auto) Lymph # [place] # Baso # Seg Neutrophils % Seg Neuts % (Manual) Lymphocytes % (Manual) Monocytes % (Manual) Eosinophils % (Manual) Basophils % (Manual) Nucleated RBC % Seg Neutrophils # Seg Neutrophils # Man Lymphocytes # (Manual) Monocytes # (Manual) Eosinophils # (Manual) Basophils # (Manual) PT INR 1.18 H Fibrinogen dRVVT Confirm Interp Factor V Activity POC ABG pH POC ABG pCO2 POC ABG pO2 ABG pO2 ABG HCO3 ABG Base Excess ABG Hemoglobin Oxyhemoglobin Sodium 136 L 133 L Potassium Chloride 96.1 L 94.8 L Carbon Dioxide 21 L BUN 37 H 42 H Creatinine 1.8 H 2.0 H Glucose POC Glucose Lactic Acid Calcium Phosphorus Magnesium Direct Bilirubin AST ALT Alkaline Phosphatase Lactate Dehydrogenase Troponin T C-Reactive Protein Total Protein Albumin Prealbumin Triglycerides Cholesterol LDL Cholesterol Direct HDL Cholesterol Urine pH Urine WBC (Auto) Urine Creatinine Urine Total Protein Fluid Total Protein Vancomycin Trough Rheumatoid Factor Complement C4 Miscellaneous Test Crossmatch 11/12/16 11/12/16 11/13/16 04:00 23:55 05:53 WBC RBC Hgb 8.9 L Hct 27.2 L MCV MCH MCHC RDW Plt Count Lymph % (Auto) [place] % (Auto) Lymph # [place] # Baso # Seg Neutrophils % Seg Neuts % (Manual) Lymphocytes % (Manual) Monocytes % (Manual) Eosinophils % (Manual) Basophils % (Manual) Nucleated RBC % Seg Neutrophils # Seg Neutrophils # Man Lymphocytes # (Manual) Monocytes # (Manual) Eosinophils # (Manual) Basophils # (Manual) PT INR Fibrinogen dRVVT Confirm Interp Factor V Activity POC ABG pH POC ABG pCO2 POC ABG pO2 ABG pO2 ABG HCO3 ABG Base Excess ABG Hemoglobin Oxyhemoglobin Sodium Potassium Chloride Carbon Dioxide BUN Creatinine Glucose POC Glucose 132 H 120 H Lactic Acid Calcium Phosphorus Magnesium Direct Bilirubin AST ALT Alkaline Phosphatase Lactate Dehydrogenase Troponin T C-Reactive Protein Total Protein Albumin Prealbumin Triglycerides Cholesterol LDL Cholesterol Direct HDL Cholesterol Urine pH Urine WBC (Auto) Urine Creatinine Urine Total Protein Fluid Total Protein Vancomycin Trough Rheumatoid Factor Complement C4 Miscellaneous Test Crossmatch 11/13/16 11/13/16 11/13/16 11:43 17:09 23:41 WBC RBC Hgb Hct MCV MCH MCHC RDW Plt Count Lymph % (Auto) [place] % (Auto) Lymph # [place] # Baso # Seg Neutrophils % Seg Neuts % (Manual) Lymphocytes % (Manual) Monocytes % (Manual) Eosinophils % (Manual) Basophils % (Manual) Nucleated RBC % Seg Neutrophils # Seg Neutrophils # Man Lymphocytes # (Manual) Monocytes # (Manual) Eosinophils # (Manual) Basophils # (Manual) PT INR Fibrinogen dRVVT Confirm Interp Factor V Activity POC ABG pH POC ABG pCO2 POC ABG pO2 ABG pO2 ABG HCO3 ABG Base Excess ABG Hemoglobin Oxyhemoglobin Sodium Potassium Chloride Carbon Dioxide BUN Creatinine Glucose POC Glucose 114 H 113 H 108 H Lactic Acid Calcium Phosphorus Magnesium Direct Bilirubin AST ALT Alkaline Phosphatase Lactate Dehydrogenase Troponin T C-Reactive Protein Total Protein Albumin Prealbumin Triglycerides Cholesterol LDL Cholesterol Direct HDL Cholesterol Urine pH Urine WBC (Auto) Urine Creatinine Urine Total Protein Fluid Total Protein Vancomycin Trough Rheumatoid Factor Complement C4 Miscellaneous Test Crossmatch 11/13/16 11/15/16 11/15/16 Unknown 00:37 03:30 WBC 11.2 H RBC 2.72 L Hgb 7.6 L Hct 23.4 L MCV MCH MCHC RDW 16.5 H Plt Count Lymph % (Auto) [place] % (Auto) Lymph # [place] # Baso # Seg Neutrophils % Seg Neuts % (Manual) Lymphocytes % (Manual) Monocytes % (Manual) Eosinophils % (Manual) Basophils % (Manual) Nucleated RBC % Seg Neutrophils # Seg Neutrophils # Man Lymphocytes # (Manual) Monocytes # (Manual) Eosinophils # (Manual) Basophils # (Manual) PT INR Fibrinogen dRVVT Confirm Interp Factor V Activity POC ABG pH POC ABG pCO2 POC ABG pO2 ABG pO2 ABG HCO3 ABG Base Excess ABG Hemoglobin Oxyhemoglobin Sodium 135 L Potassium Chloride 95.2 L Carbon Dioxide BUN 52 H Creatinine 2.2 H Glucose POC Glucose 108 H Lactic Acid Calcium Phosphorus Magnesium Direct Bilirubin AST ALT Alkaline Phosphatase Lactate Dehydrogenase Troponin T C-Reactive Protein Total Protein Albumin Prealbumin Triglycerides Cholesterol LDL Cholesterol Direct HDL Cholesterol Urine pH Urine WBC (Auto) Urine Creatinine Urine Total Protein Fluid Total Protein Vancomycin Trough Rheumatoid Factor Complement C4 Miscellaneous Test Crossmatch 11/15/16 11/15/16 11/15/16 03:30 05:04 11:50 WBC RBC Hgb Hct MCV MCH MCHC RDW Plt Count Lymph % (Auto) [place] % (Auto) Lymph # [place] # Baso # Seg Neutrophils % Seg Neuts % (Manual) Lymphocytes % (Manual) Monocytes % (Manual) Eosinophils % (Manual) Basophils % (Manual) Nucleated RBC % Seg Neutrophils # Seg Neutrophils # Man Lymphocytes # (Manual) Monocytes # (Manual) Eosinophils # (Manual) Basophils # (Manual) PT INR Fibrinogen dRVVT Confirm Interp Factor V Activity POC ABG pH POC ABG pCO2 POC ABG pO2 ABG pO2 ABG HCO3 ABG Base Excess ABG Hemoglobin Oxyhemoglobin Sodium Potassium 3.4 L Chloride Carbon Dioxide BUN 25 H Creatinine 1.5 H Glucose 103 H POC Glucose 121 H 144 H Lactic Acid Calcium Phosphorus Magnesium Direct Bilirubin AST ALT Alkaline Phosphatase Lactate Dehydrogenase Troponin T C-Reactive Protein Total Protein Albumin Prealbumin Triglycerides Cholesterol LDL Cholesterol Direct HDL Cholesterol Urine pH Urine WBC (Auto) Urine Creatinine Urine Total Protein Fluid Total Protein Vancomycin Trough Rheumatoid Factor Complement C4 Miscellaneous Test Crossmatch 11/15/16 11/15/16 11/16/16 21:28 23:20 11:44 WBC RBC Hgb Hct MCV MCH MCHC RDW Plt Count Lymph % (Auto) [place] % (Auto) Lymph # [place] # Baso # Seg Neutrophils % Seg Neuts % (Manual) Lymphocytes % (Manual) Monocytes % (Manual) Eosinophils % (Manual) Basophils % (Manual) Nucleated RBC % Seg Neutrophils # Seg Neutrophils # Man Lymphocytes # (Manual) Monocytes # (Manual) Eosinophils # (Manual) Basophils # (Manual) PT INR Fibrinogen dRVVT Confirm Interp Factor V Activity POC ABG pH 7.462 H POC ABG pCO2 POC ABG pO2 71 L ABG pO2 ABG HCO3 ABG Base Excess ABG Hemoglobin Oxyhemoglobin Sodium Potassium Chloride Carbon Dioxide BUN Creatinine Glucose POC Glucose 116 H 133 H Lactic Acid Calcium Phosphorus Magnesium Direct Bilirubin AST ALT Alkaline Phosphatase Lactate Dehydrogenase Troponin T C-Reactive Protein Total Protein Albumin Prealbumin Triglycerides Cholesterol LDL Cholesterol Direct HDL Cholesterol Urine pH Urine WBC (Auto) Urine Creatinine Urine Total Protein Fluid Total Protein Vancomycin Trough Rheumatoid Factor Complement C4 Miscellaneous Test Crossmatch 11/16/16 11/16/16 11/16/16 12:20 17:05 23:35 WBC 11.7 H RBC 2.73 L Hgb 7.6 L Hct 23.7 L MCV MCH MCHC RDW 16.6 H Plt Count Lymph % (Auto) [place] % (Auto) Lymph # [place] # Baso # Seg Neutrophils % Seg Neuts % (Manual) Lymphocytes % (Manual) Monocytes % (Manual) Eosinophils % (Manual) Basophils % (Manual) Nucleated RBC % Seg Neutrophils # Seg Neutrophils # Man Lymphocytes # (Manual) Monocytes # (Manual) Eosinophils # (Manual) Basophils # (Manual) PT INR Fibrinogen dRVVT Confirm Interp Factor V Activity POC ABG pH POC ABG pCO2 POC ABG pO2 ABG pO2 ABG HCO3 ABG Base Excess ABG Hemoglobin Oxyhemoglobin Sodium Potassium Chloride Carbon Dioxide BUN Creatinine Glucose POC Glucose 154 H 125 H Lactic Acid Calcium Phosphorus Magnesium Direct Bilirubin AST ALT Alkaline Phosphatase Lactate Dehydrogenase Troponin T C-Reactive Protein Total Protein Albumin Prealbumin Triglycerides Cholesterol LDL Cholesterol Direct HDL Cholesterol Urine pH Urine WBC (Auto) Urine Creatinine Urine Total Protein Fluid Total Protein Vancomycin Trough Rheumatoid Factor Complement C4 Miscellaneous Test Crossmatch 11/17/16 11/17/16 11/17/16 03:20 03:20 03:20 WBC RBC 2.55 L Hgb 7.3 L Hct 21.9 L MCV MCH MCHC RDW 16.6 H Plt Count Lymph % (Auto) [place] % (Auto) 11.5 H Lymph # [place] # 1.1 H Baso # Seg Neutrophils % Seg Neuts % (Manual) Lymphocytes % (Manual) Monocytes % (Manual) Eosinophils % (Manual) Basophils % (Manual) Nucleated RBC % Seg Neutrophils # Seg Neutrophils # Man Lymphocytes # (Manual) Monocytes # (Manual) Eosinophils # (Manual) Basophils # (Manual) PT 16.8 H INR 1.37 H Fibrinogen dRVVT Confirm Interp Factor V Activity POC ABG pH POC ABG pCO2 POC ABG pO2 ABG pO2 ABG HCO3 ABG Base Excess ABG Hemoglobin Oxyhemoglobin Sodium Potassium 3.5 L Chloride Carbon Dioxide BUN 21 H Creatinine Glucose POC Glucose Lactic Acid Calcium 7.9 L Phosphorus Magnesium Direct Bilirubin AST ALT Alkaline Phosphatase Lactate Dehydrogenase Troponin T C-Reactive Protein Total Protein Albumin Prealbumin Triglycerides Cholesterol LDL Cholesterol Direct HDL Cholesterol Urine pH Urine WBC (Auto) Urine Creatinine Urine Total Protein Fluid Total Protein Vancomycin Trough Rheumatoid Factor Complement C4 Miscellaneous Test Crossmatch 11/17/16 11/17/16 11/17/16 06:34 11:21 21:22 WBC RBC Hgb Hct MCV MCH MCHC RDW Plt Count Lymph % (Auto) [place] % (Auto) Lymph # [place] # Baso # Seg Neutrophils % Seg Neuts % (Manual) Lymphocytes % (Manual) Monocytes % (Manual) Eosinophils % (Manual) Basophils % (Manual) Nucleated RBC % Seg Neutrophils # Seg Neutrophils # Man Lymphocytes # (Manual) Monocytes # (Manual) Eosinophils # (Manual) Basophils # (Manual) PT INR Fibrinogen dRVVT Confirm Interp Factor V Activity POC ABG pH 7.467 H POC ABG pCO2 POC ABG pO2 73 L ABG pO2 ABG HCO3 ABG Base Excess ABG Hemoglobin Oxyhemoglobin Sodium Potassium Chloride Carbon Dioxide BUN Creatinine Glucose POC Glucose 121 H 119 H Lactic Acid Calcium Phosphorus Magnesium Direct Bilirubin AST ALT Alkaline Phosphatase Lactate Dehydrogenase Troponin T C-Reactive Protein Total Protein Albumin Prealbumin Triglycerides Cholesterol LDL Cholesterol Direct HDL Cholesterol Urine pH Urine WBC (Auto) Urine Creatinine Urine Total Protein Fluid Total Protein Vancomycin Trough Rheumatoid Factor Complement C4 Miscellaneous Test Crossmatch 11/18/16 11/18/16 11/19/16 12:16 17:19 00:00 WBC RBC Hgb Hct MCV MCH MCHC RDW Plt Count Lymph % (Auto) [place] % (Auto) Lymph # [place] # Baso # Seg Neutrophils % Seg Neuts % (Manual) Lymphocytes % (Manual) Monocytes % (Manual) Eosinophils % (Manual) Basophils % (Manual) Nucleated RBC % Seg Neutrophils # Seg Neutrophils # Man Lymphocytes # (Manual) Monocytes # (Manual) Eosinophils # (Manual) Basophils # (Manual) PT INR Fibrinogen dRVVT Confirm Interp Factor V Activity POC ABG pH POC ABG pCO2 POC ABG pO2 ABG pO2 ABG HCO3 ABG Base Excess ABG Hemoglobin Oxyhemoglobin Sodium Potassium Chloride Carbon Dioxide BUN Creatinine Glucose POC Glucose 124 H 162 H 139 H Lactic Acid Calcium Phosphorus Magnesium Direct Bilirubin AST ALT Alkaline Phosphatase Lactate Dehydrogenase Troponin T C-Reactive Protein Total Protein Albumin Prealbumin Triglycerides Cholesterol LDL Cholesterol Direct HDL Cholesterol Urine pH Urine WBC (Auto) Urine Creatinine Urine Total Protein Fluid Total Protein Vancomycin Trough Rheumatoid Factor Complement C4 Miscellaneous Test Crossmatch 11/19/16 11/19/16 11/20/16 05:00 12:43 00:40 WBC RBC Hgb Hct MCV MCH MCHC RDW Plt Count Lymph % (Auto) [place] % (Auto) Lymph # [place] # Baso # Seg Neutrophils % Seg Neuts % (Manual) Lymphocytes % (Manual) Monocytes % (Manual) Eosinophils % (Manual) Basophils % (Manual) Nucleated RBC % Seg Neutrophils # Seg Neutrophils # Man Lymphocytes # (Manual) Monocytes # (Manual) Eosinophils # (Manual) Basophils # (Manual) PT INR Fibrinogen dRVVT Confirm Interp Factor V Activity POC ABG pH POC ABG pCO2 POC ABG pO2 ABG pO2 ABG HCO3 ABG Base Excess ABG Hemoglobin Oxyhemoglobin Sodium Potassium Chloride Carbon Dioxide BUN Creatinine Glucose POC Glucose 110 H 125 H 136 H Lactic Acid Calcium Phosphorus Magnesium Direct Bilirubin AST ALT Alkaline Phosphatase Lactate Dehydrogenase Troponin T C-Reactive Protein Total Protein Albumin Prealbumin Triglycerides Cholesterol LDL Cholesterol Direct HDL Cholesterol Urine pH Urine WBC (Auto) Urine Creatinine Urine Total Protein Fluid Total Protein Vancomycin Trough Rheumatoid Factor Complement C4 Miscellaneous Test Crossmatch 11/20/16 11/20/16 11/20/16 05:00 05:00 05:51 WBC 13.1 H RBC 2.74 L Hgb 7.7 L Hct 23.6 L MCV MCH MCHC RDW 16.9 H Plt Count Lymph % (Auto) [place] % (Auto) 10.8 H Lymph # [place] # 1.4 H Baso # Seg Neutrophils % Seg Neuts % (Manual) Lymphocytes % (Manual) Monocytes % (Manual) Eosinophils % (Manual) Basophils % (Manual) Nucleated RBC % Seg Neutrophils # 7.9 H Seg Neutrophils # Man Lymphocytes # (Manual) Monocytes # (Manual) Eosinophils # (Manual) Basophils # (Manual) PT INR Fibrinogen dRVVT Confirm Interp Factor V Activity POC ABG pH POC ABG pCO2 POC ABG pO2 ABG pO2 ABG HCO3 ABG Base Excess ABG Hemoglobin Oxyhemoglobin Sodium Potassium Chloride Carbon Dioxide BUN 31 H Creatinine 1.8 H Glucose 129 H POC Glucose 133 H Lactic Acid Calcium Phosphorus Magnesium Direct Bilirubin AST ALT Alkaline Phosphatase Lactate Dehydrogenase Troponin T C-Reactive Protein Total Protein Albumin Prealbumin Triglycerides Cholesterol LDL Cholesterol Direct HDL Cholesterol Urine pH Urine WBC (Auto) Urine Creatinine Urine Total Protein Fluid Total Protein Vancomycin Trough Rheumatoid Factor Complement C4 Miscellaneous Test Crossmatch 11/20/16 11/20/16 11/21/16 12:40 18:10 01:20 WBC RBC Hgb Hct MCV MCH MCHC RDW Plt Count Lymph % (Auto) [place] % (Auto) Lymph # [place] # Baso # Seg Neutrophils % Seg Neuts % (Manual) Lymphocytes % (Manual) Monocytes % (Manual) Eosinophils % (Manual) Basophils % (Manual) Nucleated RBC % Seg Neutrophils # Seg Neutrophils # Man Lymphocytes # (Manual) Monocytes # (Manual) Eosinophils # (Manual) Basophils # (Manual) PT INR Fibrinogen dRVVT Confirm Interp Factor V Activity POC ABG pH POC ABG pCO2 POC ABG pO2 ABG pO2 ABG HCO3 ABG Base Excess ABG Hemoglobin Oxyhemoglobin Sodium Potassium Chloride Carbon Dioxide BUN Creatinine Glucose POC Glucose 134 H 138 H 136 H Lactic Acid Calcium Phosphorus Magnesium Direct Bilirubin AST ALT Alkaline Phosphatase Lactate Dehydrogenase Troponin T C-Reactive Protein Total Protein Albumin Prealbumin Triglycerides Cholesterol LDL Cholesterol Direct HDL Cholesterol Urine pH Urine WBC (Auto) Urine Creatinine Urine Total Protein Fluid Total Protein Vancomycin Trough Rheumatoid Factor Complement C4 Miscellaneous Test Crossmatch 11/21/16 11/21/16 11/21/16 07:04 07:45 07:45 WBC 22.0 H RBC 2.91 L Hgb 8.2 L Hct 25.4 L MCV MCH MCHC RDW 17.1 H Plt Count Lymph % (Auto) [place] % (Auto) Lymph # [place] # Baso # Seg Neutrophils % Seg Neuts % (Manual) Lymphocytes % (Manual) 8.0 L Monocytes % (Manual) Eosinophils % (Manual) Basophils % (Manual) Nucleated RBC % Seg Neutrophils # Seg Neutrophils # Man 14.7 H Lymphocytes # (Manual) Monocytes # (Manual) 1.1 H Eosinophils # (Manual) Basophils # (Manual) PT INR Fibrinogen dRVVT Confirm Interp Factor V Activity POC ABG pH POC ABG pCO2 POC ABG pO2 ABG pO2 ABG HCO3 ABG Base Excess ABG Hemoglobin Oxyhemoglobin Sodium Potassium Chloride Carbon Dioxide BUN 42 H Creatinine 2.0 H Glucose POC Glucose 108 H Lactic Acid Calcium Phosphorus Magnesium Direct Bilirubin AST ALT Alkaline Phosphatase Lactate Dehydrogenase Troponin T C-Reactive Protein Total Protein Albumin Prealbumin Triglycerides Cholesterol LDL Cholesterol Direct HDL Cholesterol Urine pH Urine WBC (Auto) Urine Creatinine Urine Total Protein Fluid Total Protein Vancomycin Trough Rheumatoid Factor Complement C4 Miscellaneous Test Crossmatch 11/21/16 11/21/16 11/21/16 08:38 10:09 11:20 WBC RBC Hgb Hct MCV MCH MCHC RDW Plt Count Lymph % (Auto) [place] % (Auto) Lymph # [place] # Baso # Seg Neutrophils % Seg Neuts % (Manual) Lymphocytes % (Manual) Monocytes % (Manual) Eosinophils % (Manual) Basophils % (Manual) Nucleated RBC % Seg Neutrophils # Seg Neutrophils # Man Lymphocytes # (Manual) Monocytes # (Manual) Eosinophils # (Manual) Basophils # (Manual) PT INR Fibrinogen dRVVT Confirm Interp Factor V Activity POC ABG pH 7.346 L POC ABG pCO2 34.4 L POC ABG pO2 314 H ABG pO2 ABG HCO3 ABG Base Excess ABG Hemoglobin Oxyhemoglobin Sodium Potassium Chloride Carbon Dioxide BUN Creatinine Glucose POC Glucose 195 H 153 H Lactic Acid Calcium Phosphorus Magnesium Direct Bilirubin AST ALT Alkaline Phosphatase Lactate Dehydrogenase Troponin T C-Reactive Protein Total Protein Albumin Prealbumin Triglycerides Cholesterol LDL Cholesterol Direct HDL Cholesterol Urine pH Urine WBC (Auto) Urine Creatinine Urine Total Protein Fluid Total Protein Vancomycin Trough Rheumatoid Factor Complement C4 Miscellaneous Test Crossmatch 11/21/16 11/22/16 11/22/16 23:37 04:48 05:00 WBC 29.7 H RBC 2.73 L Hgb 7.5 L Hct 24.2 L MCV MCH 27 L MCHC RDW 17.4 H Plt Count Lymph % (Auto) [place] % (Auto) Lymph # [place] # Baso # Seg Neutrophils % Seg Neuts % (Manual) Lymphocytes % (Manual) 7.0 L Monocytes % (Manual) Eosinophils % (Manual) Basophils % (Manual) Nucleated RBC % Seg Neutrophils # Seg Neutrophils # Man 15.4 H Lymphocytes # (Manual) Monocytes # (Manual) Eosinophils # (Manual) Basophils # (Manual) PT INR Fibrinogen dRVVT Confirm Interp Factor V Activity POC ABG pH POC ABG pCO2 24.6 L POC ABG pO2 189 H ABG pO2 ABG HCO3 ABG Base Excess ABG Hemoglobin Oxyhemoglobin Sodium Potassium Chloride Carbon Dioxide BUN Creatinine Glucose POC Glucose 65 L Lactic Acid Calcium Phosphorus Magnesium Direct Bilirubin AST ALT Alkaline Phosphatase Lactate Dehydrogenase Troponin T C-Reactive Protein Total Protein Albumin Prealbumin Triglycerides Cholesterol LDL Cholesterol Direct HDL Cholesterol Urine pH Urine WBC (Auto) Urine Creatinine Urine Total Protein Fluid Total Protein Vancomycin Trough Rheumatoid Factor Complement C4 Miscellaneous Test Crossmatch 11/22/16 11/23/16 11/23/16 05:00 03:44 04:06 WBC RBC 2.52 L Hgb 7.2 L Hct 21.5 L MCV MCH MCHC RDW 17.1 H Plt Count Lymph % (Auto) [place] % (Auto) 12.4 H Lymph # [place] # 1.4 H Baso # Seg Neutrophils % Seg Neuts % (Manual) Lymphocytes % (Manual) Monocytes % (Manual) Eosinophils % (Manual) Basophils % (Manual) Nucleated RBC % Seg Neutrophils # Seg Neutrophils # Man Lymphocytes # (Manual) Monocytes # (Manual) Eosinophils # (Manual) Basophils # (Manual) PT INR Fibrinogen dRVVT Confirm Interp Factor V Activity POC ABG pH 7.493 H POC ABG pCO2 29.5 L POC ABG pO2 49 L ABG pO2 ABG HCO3 ABG Base Excess ABG Hemoglobin Oxyhemoglobin Sodium 134 L Potassium Chloride 95.9 L Carbon Dioxide 14 L D BUN 51 H Creatinine 2.6 H Glucose POC Glucose Lactic Acid Calcium Phosphorus Magnesium Direct Bilirubin AST ALT Alkaline Phosphatase Lactate Dehydrogenase Troponin T C-Reactive Protein Total Protein Albumin Prealbumin Triglycerides Cholesterol LDL Cholesterol Direct HDL Cholesterol Urine pH Urine WBC (Auto) Urine Creatinine Urine Total Protein Fluid Total Protein Vancomycin Trough Rheumatoid Factor Complement C4 Miscellaneous Test Crossmatch 11/23/16 11/23/16 11/24/16 04:06 11:29 06:39 WBC RBC Hgb Hct MCV MCH MCHC RDW Plt Count Lymph % (Auto) [place] % (Auto) Lymph # [place] # Baso # Seg Neutrophils % Seg Neuts % (Manual) Lymphocytes % (Manual) Monocytes % (Manual) Eosinophils % (Manual) Basophils % (Manual) Nucleated RBC % Seg Neutrophils # Seg Neutrophils # Man Lymphocytes # (Manual) Monocytes # (Manual) Eosinophils # (Manual) Basophils # (Manual) PT INR Fibrinogen dRVVT Confirm Interp Factor V Activity POC ABG pH POC ABG pCO2 POC ABG pO2 ABG pO2 ABG HCO3 ABG Base Excess ABG Hemoglobin Oxyhemoglobin Sodium 136 L Potassium Chloride 95.2 L Carbon Dioxide BUN 60 H Creatinine 2.9 H Glucose POC Glucose 69 L 305 H Lactic Acid Calcium Phosphorus Magnesium 1.60 L Direct Bilirubin AST ALT Alkaline Phosphatase Lactate Dehydrogenase Troponin T C-Reactive Protein Total Protein Albumin Prealbumin Triglycerides Cholesterol LDL Cholesterol Direct HDL Cholesterol Urine pH Urine WBC (Auto) Urine Creatinine Urine Total Protein Fluid Total Protein Vancomycin Trough Rheumatoid Factor Complement C4 Miscellaneous Test Crossmatch 11/24/16 11/24/16 11/24/16 06:43 08:08 08:08 WBC 11.2 H RBC 2.47 L Hgb 6.8 L Hct 20.6 L MCV MCH MCHC RDW 17.0 H Plt Count Lymph % (Auto) [place] % (Auto) 10.3 H Lymph # [place] # 1.2 H Baso # Seg Neutrophils % Seg Neuts % (Manual) Lymphocytes % (Manual) Monocytes % (Manual) Eosinophils % (Manual) Basophils % (Manual) Nucleated RBC % Seg Neutrophils # Seg Neutrophils # Man Lymphocytes # (Manual) Monocytes # (Manual) Eosinophils # (Manual) Basophils # (Manual) PT INR Fibrinogen dRVVT Confirm Interp Factor V Activity POC ABG pH POC ABG pCO2 POC ABG pO2 ABG pO2 ABG HCO3 ABG Base Excess ABG Hemoglobin Oxyhemoglobin Sodium 135 L Potassium Chloride 96.3 L Carbon Dioxide BUN 61 H Creatinine 3.1 H Glucose POC Glucose 62 L Lactic Acid Calcium 8.2 L Phosphorus Magnesium Direct Bilirubin AST ALT Alkaline Phosphatase Lactate Dehydrogenase Troponin T C-Reactive Protein Total Protein Albumin Prealbumin Triglycerides Cholesterol LDL Cholesterol Direct HDL Cholesterol Urine pH Urine WBC (Auto) Urine Creatinine Urine Total Protein Fluid Total Protein Vancomycin Trough Rheumatoid Factor Complement C4 Miscellaneous Test Crossmatch 11/24/16 11/24/16 11/24/16 08:34 11:20 12:41 WBC RBC Hgb Hct MCV MCH MCHC RDW Plt Count Lymph % (Auto) [place] % (Auto) Lymph # [place] # Baso # Seg Neutrophils % Seg Neuts % (Manual) Lymphocytes % (Manual) Monocytes % (Manual) Eosinophils % (Manual) Basophils % (Manual) Nucleated RBC % Seg Neutrophils # Seg Neutrophils # Man Lymphocytes # (Manual) Monocytes # (Manual) Eosinophils # (Manual) Basophils # (Manual) PT INR Fibrinogen dRVVT Confirm Interp Factor V Activity POC ABG pH POC ABG pCO2 POC ABG pO2 ABG pO2 ABG HCO3 ABG Base Excess ABG Hemoglobin Oxyhemoglobin Sodium Potassium Chloride Carbon Dioxide BUN Creatinine Glucose POC Glucose 108 H Lactic Acid Calcium Phosphorus Magnesium 1.60 L Direct Bilirubin AST ALT Alkaline Phosphatase Lactate Dehydrogenase Troponin T C-Reactive Protein Total Protein Albumin Prealbumin Triglycerides Cholesterol LDL Cholesterol Direct HDL Cholesterol Urine pH Urine WBC (Auto) Urine Creatinine Urine Total Protein Fluid Total Protein Vancomycin Trough Rheumatoid Factor Complement C4 Miscellaneous Test Crossmatch See Detail 11/25/16 11/25/16 11/25/16 00:03 04:42 04:42 WBC RBC 3.03 L Hgb 8.6 L Hct 25.3 L MCV MCH MCHC RDW 16.2 H Plt Count Lymph % (Auto) [place] % (Auto) 8.1 H Lymph # [place] # Baso # Seg Neutrophils % 71.3 H Seg Neuts % (Manual) Lymphocytes % (Manual) Monocytes % (Manual) Eosinophils % (Manual) Basophils % (Manual) Nucleated RBC % Seg Neutrophils # Seg Neutrophils # Man Lymphocytes # (Manual) Monocytes # (Manual) Eosinophils # (Manual) Basophils # (Manual) PT INR Fibrinogen dRVVT Confirm Interp Factor V Activity POC ABG pH POC ABG pCO2 POC ABG pO2 ABG pO2 ABG HCO3 ABG Base Excess ABG Hemoglobin Oxyhemoglobin Sodium Potassium Chloride Carbon Dioxide BUN 61 H Creatinine 3.0 H Glucose 102 H POC Glucose 113 H Lactic Acid Calcium 8.2 L Phosphorus Magnesium Direct Bilirubin AST ALT Alkaline Phosphatase 142 H Lactate Dehydrogenase Troponin T C-Reactive Protein Total Protein 5.7 L Albumin 1.5 L Prealbumin Triglycerides Cholesterol LDL Cholesterol Direct HDL Cholesterol Urine pH Urine WBC (Auto) Urine Creatinine Urine Total Protein Fluid Total Protein Vancomycin Trough Rheumatoid Factor Complement C4 Miscellaneous Test Crossmatch 11/25/16 11/25/16 11/25/16 05:12 11:31 14:12 WBC RBC Hgb Hct MCV MCH MCHC RDW Plt Count Lymph % (Auto) [place] % (Auto) Lymph # [place] # Baso # Seg Neutrophils % Seg Neuts % (Manual) Lymphocytes % (Manual) Monocytes % (Manual) Eosinophils % (Manual) Basophils % (Manual) Nucleated RBC % Seg Neutrophils # Seg Neutrophils # Man Lymphocytes # (Manual) Monocytes # (Manual) Eosinophils # (Manual) Basophils # (Manual) PT INR Fibrinogen dRVVT Confirm Interp Factor V Activity POC ABG pH 7.487 H POC ABG pCO2 POC ABG pO2 153 H ABG pO2 ABG HCO3 ABG Base Excess ABG Hemoglobin Oxyhemoglobin Sodium Potassium Chloride Carbon Dioxide BUN Creatinine Glucose POC Glucose 131 H 140 H Lactic Acid Calcium Phosphorus Magnesium Direct Bilirubin AST ALT Alkaline Phosphatase Lactate Dehydrogenase Troponin T C-Reactive Protein Total Protein Albumin Prealbumin Triglycerides Cholesterol LDL Cholesterol Direct HDL Cholesterol Urine pH Urine WBC (Auto) Urine Creatinine Urine Total Protein Fluid Total Protein Vancomycin Trough Rheumatoid Factor Complement C4 Miscellaneous Test Crossmatch 11/25/16 11/26/16 11/26/16 17:23 00:09 05:13 WBC RBC 2.94 L Hgb 8.4 L Hct 24.6 L MCV MCH MCHC RDW 16.4 H Plt Count Lymph % (Auto) [place] % (Auto) 12.3 H Lymph # [place] # 1.1 H Baso # Seg Neutrophils % Seg Neuts % (Manual) Lymphocytes % (Manual) Monocytes % (Manual) Eosinophils % (Manual) Basophils % (Manual) Nucleated RBC % Seg Neutrophils # Seg Neutrophils # Man Lymphocytes # (Manual) Monocytes # (Manual) Eosinophils # (Manual) Basophils # (Manual) PT INR Fibrinogen dRVVT Confirm Interp Factor V Activity POC ABG pH POC ABG pCO2 POC ABG pO2 ABG pO2 ABG HCO3 ABG Base Excess ABG Hemoglobin Oxyhemoglobin Sodium Potassium Chloride Carbon Dioxide BUN Creatinine Glucose POC Glucose 146 H 112 H Lactic Acid Calcium Phosphorus Magnesium Direct Bilirubin AST ALT Alkaline Phosphatase Lactate Dehydrogenase Troponin T C-Reactive Protein Total Protein Albumin Prealbumin Triglycerides Cholesterol LDL Cholesterol Direct HDL Cholesterol Urine pH Urine WBC (Auto) Urine Creatinine Urine Total Protein Fluid Total Protein Vancomycin Trough Rheumatoid Factor Complement C4 Miscellaneous Test Crossmatch 11/26/16 11/26/16 11/26/16 05:13 05:28 11:53 WBC RBC Hgb Hct MCV MCH MCHC RDW Plt Count Lymph % (Auto) [place] % (Auto) Lymph # [place] # Baso # Seg Neutrophils % Seg Neuts % (Manual) Lymphocytes % (Manual) Monocytes % (Manual) Eosinophils % (Manual) Basophils % (Manual) Nucleated RBC % Seg Neutrophils # Seg Neutrophils # Man Lymphocytes # (Manual) Monocytes # (Manual) Eosinophils # (Manual) Basophils # (Manual) PT INR Fibrinogen dRVVT Confirm Interp Factor V Activity POC ABG pH POC ABG pCO2 POC ABG pO2 ABG pO2 ABG HCO3 ABG Base Excess ABG Hemoglobin Oxyhemoglobin Sodium Potassium Chloride 97.8 L Carbon Dioxide BUN 37 H Creatinine 2.0 H Glucose 109 H POC Glucose 117 H 111 H Lactic Acid Calcium 7.9 L Phosphorus 1.80 L D Magnesium Direct Bilirubin AST ALT Alkaline Phosphatase Lactate Dehydrogenase Troponin T C-Reactive Protein Total Protein Albumin Prealbumin Triglycerides Cholesterol LDL Cholesterol Direct HDL Cholesterol Urine pH Urine WBC (Auto) Urine Creatinine Urine Total Protein Fluid Total Protein Vancomycin Trough Rheumatoid Factor Complement C4 Miscellaneous Test Crossmatch 11/26/16 11/27/16 11/27/16 17:14 04:50 06:02 WBC RBC Hgb Hct MCV MCH MCHC RDW Plt Count Lymph % (Auto) [place] % (Auto) Lymph # [place] # Baso # Seg Neutrophils % Seg Neuts % (Manual) Lymphocytes % (Manual) Monocytes % (Manual) Eosinophils % (Manual) Basophils % (Manual) Nucleated RBC % Seg Neutrophils # Seg Neutrophils # Man Lymphocytes # (Manual) Monocytes # (Manual) Eosinophils # (Manual) Basophils # (Manual) PT INR Fibrinogen dRVVT Confirm Interp Factor V Activity POC ABG pH POC ABG pCO2 POC ABG pO2 ABG pO2 75.2 L ABG HCO3 26.4 H ABG Base Excess ABG Hemoglobin 7.6 L Oxyhemoglobin 94.8 L Sodium Potassium Chloride Carbon Dioxide BUN 49 H Creatinine 2.3 H Glucose POC Glucose 115 H Lactic Acid Calcium Phosphorus 1.50 L Magnesium Direct Bilirubin AST ALT Alkaline Phosphatase Lactate Dehydrogenase Troponin T C-Reactive Protein Total Protein Albumin Prealbumin Triglycerides Cholesterol LDL Cholesterol Direct HDL Cholesterol Urine pH Urine WBC (Auto) Urine Creatinine Urine Total Protein Fluid Total Protein Vancomycin Trough Rheumatoid Factor Complement C4 Miscellaneous Test Crossmatch 11/27/16 11/27/16 11/27/16 06:02 11:25 17:25 WBC 11.6 H RBC 2.75 L Hgb 7.6 L Hct 23.4 L MCV MCH MCHC RDW 16.5 H Plt Count Lymph % (Auto) [place] % (Auto) Lymph # [place] # Baso # Seg Neutrophils % Seg Neuts % (Manual) Lymphocytes % (Manual) Monocytes % (Manual) Eosinophils % (Manual) Basophils % (Manual) Nucleated RBC % Seg Neutrophils # Seg Neutrophils # Man Lymphocytes # (Manual) Monocytes # (Manual) Eosinophils # (Manual) Basophils # (Manual) PT INR Fibrinogen dRVVT Confirm Interp Factor V Activity POC ABG pH POC ABG pCO2 POC ABG pO2 ABG pO2 ABG HCO3 ABG Base Excess ABG Hemoglobin Oxyhemoglobin Sodium Potassium Chloride Carbon Dioxide BUN Creatinine Glucose POC Glucose 114 H 126 H Lactic Acid Calcium Phosphorus Magnesium Direct Bilirubin AST ALT Alkaline Phosphatase Lactate Dehydrogenase Troponin T C-Reactive Protein Total Protein Albumin Prealbumin Triglycerides Cholesterol LDL Cholesterol Direct HDL Cholesterol Urine pH Urine WBC (Auto) Urine Creatinine Urine Total Protein Fluid Total Protein Vancomycin Trough Rheumatoid Factor Complement C4 Miscellaneous Test Crossmatch 11/28/16 11/28/16 11/28/16 04:45 05:33 05:44 WBC RBC Hgb Hct MCV MCH MCHC RDW Plt Count Lymph % (Auto) [place] % (Auto) Lymph # [place] # Baso # Seg Neutrophils % Seg Neuts % (Manual) Lymphocytes % (Manual) Monocytes % (Manual) Eosinophils % (Manual) Basophils % (Manual) Nucleated RBC % Seg Neutrophils # Seg Neutrophils # Man Lymphocytes # (Manual) Monocytes # (Manual) Eosinophils # (Manual) Basophils # (Manual) PT INR Fibrinogen dRVVT Confirm Interp Factor V Activity POC ABG pH POC ABG pCO2 POC ABG pO2 ABG pO2 99.3 H ABG HCO3 ABG Base Excess ABG Hemoglobin 8.3 L Oxyhemoglobin Sodium Potassium Chloride Carbon Dioxide BUN 63 H Creatinine 2.4 H Glucose 102 H POC Glucose 108 H Lactic Acid Calcium Phosphorus 1.80 L Magnesium Direct Bilirubin AST ALT Alkaline Phosphatase Lactate Dehydrogenase Troponin T C-Reactive Protein Total Protein Albumin Prealbumin Triglycerides Cholesterol LDL Cholesterol Direct HDL Cholesterol Urine pH Urine WBC (Auto) Urine Creatinine Urine Total Protein Fluid Total Protein Vancomycin Trough Rheumatoid Factor Complement C4 Miscellaneous Test Crossmatch 11/28/16 11/28/16 11/28/16 12:31 16:09 23:46 WBC RBC Hgb Hct MCV MCH MCHC RDW Plt Count Lymph % (Auto) [place] % (Auto) Lymph # [place] # Baso # Seg Neutrophils % Seg Neuts % (Manual) Lymphocytes % (Manual) Monocytes % (Manual) Eosinophils % (Manual) Basophils % (Manual) Nucleated RBC % Seg Neutrophils # Seg Neutrophils # Man Lymphocytes # (Manual) Monocytes # (Manual) Eosinophils # (Manual) Basophils # (Manual) PT INR Fibrinogen dRVVT Confirm Interp Factor V Activity POC ABG pH POC ABG pCO2 POC ABG pO2 ABG pO2 ABG HCO3 ABG Base Excess ABG Hemoglobin Oxyhemoglobin Sodium Potassium Chloride Carbon Dioxide BUN Creatinine Glucose POC Glucose 126 H 111 H 119 H Lactic Acid Calcium Phosphorus Magnesium Direct Bilirubin AST ALT Alkaline Phosphatase Lactate Dehydrogenase Troponin T C-Reactive Protein Total Protein Albumin Prealbumin Triglycerides Cholesterol LDL Cholesterol Direct HDL Cholesterol Urine pH Urine WBC (Auto) Urine Creatinine Urine Total Protein Fluid Total Protein Vancomycin Trough Rheumatoid Factor Complement C4 Miscellaneous Test Crossmatch 11/29/16 11/29/16 11/29/16 03:33 04:52 05:10 WBC RBC Hgb Hct MCV MCH MCHC RDW Plt Count Lymph % (Auto) [place] % (Auto) Lymph # [place] # Baso # Seg Neutrophils % Seg Neuts % (Manual) Lymphocytes % (Manual) Monocytes % (Manual) Eosinophils % (Manual) Basophils % (Manual) Nucleated RBC % Seg Neutrophils # Seg Neutrophils # Man Lymphocytes # (Manual) Monocytes # (Manual) Eosinophils # (Manual) Basophils # (Manual) PT INR Fibrinogen dRVVT Confirm Interp Factor V Activity POC ABG pH POC ABG pCO2 POC ABG pO2 ABG pO2 ABG HCO3 ABG Base Excess ABG Hemoglobin 7.0 L Oxyhemoglobin 94.9 L Sodium Potassium Chloride Carbon Dioxide BUN 73 H Creatinine 2.7 H Glucose POC Glucose 108 H Lactic Acid Calcium Phosphorus Magnesium Direct Bilirubin AST ALT Alkaline Phosphatase Lactate Dehydrogenase Troponin T C-Reactive Protein Total Protein Albumin Prealbumin Triglycerides Cholesterol LDL Cholesterol Direct HDL Cholesterol Urine pH Urine WBC (Auto) Urine Creatinine Urine Total Protein Fluid Total Protein Vancomycin Trough Rheumatoid Factor Complement C4 Miscellaneous Test Crossmatch 11/29/16 11/29/16 11/29/16 12:16 18:05 23:46 WBC RBC Hgb Hct MCV MCH MCHC RDW Plt Count Lymph % (Auto) [place] % (Auto) Lymph # [place] # Baso # Seg Neutrophils % Seg Neuts % (Manual) Lymphocytes % (Manual) Monocytes % (Manual) Eosinophils % (Manual) Basophils % (Manual) Nucleated RBC % Seg Neutrophils # Seg Neutrophils # Man Lymphocytes # (Manual) Monocytes # (Manual) Eosinophils # (Manual) Basophils # (Manual) PT INR Fibrinogen dRVVT Confirm Interp Factor V Activity POC ABG pH POC ABG pCO2 POC ABG pO2 ABG pO2 ABG HCO3 ABG Base Excess ABG Hemoglobin Oxyhemoglobin Sodium Potassium Chloride Carbon Dioxide BUN Creatinine Glucose POC Glucose 133 H 146 H 141 H Lactic Acid Calcium Phosphorus Magnesium Direct Bilirubin AST ALT Alkaline Phosphatase Lactate Dehydrogenase Troponin T C-Reactive Protein Total Protein Albumin Prealbumin Triglycerides Cholesterol LDL Cholesterol Direct HDL Cholesterol Urine pH Urine WBC (Auto) Urine Creatinine Urine Total Protein Fluid Total Protein Vancomycin Trough Rheumatoid Factor Complement C4 Miscellaneous Test Crossmatch 11/30/16 11/30/16 11/30/16 04:17 04:17 04:32 WBC 12.0 H RBC 2.80 L Hgb 7.8 L Hct 23.6 L MCV MCH MCHC RDW 16.6 H Plt Count Lymph % (Auto) [place] % (Auto) 11.3 H Lymph # [place] # 1.4 H Baso # Seg Neutrophils % Seg Neuts % (Manual) Lymphocytes % (Manual) Monocytes % (Manual) Eosinophils % (Manual) Basophils % (Manual) Nucleated RBC % Seg Neutrophils # 8.2 H Seg Neutrophils # Man Lymphocytes # (Manual) Monocytes # (Manual) Eosinophils # (Manual) Basophils # (Manual) PT INR Fibrinogen dRVVT Confirm Interp Factor V Activity POC ABG pH POC ABG pCO2 POC ABG pO2 ABG pO2 ABG HCO3 ABG Base Excess ABG Hemoglobin Oxyhemoglobin Sodium 169 H* D Potassium 5.1 H Chloride 121.5 H Carbon Dioxide BUN 34 H Creatinine 1.3 H D Glucose 133 H POC Glucose 131 H Lactic Acid Calcium 10.3 H Phosphorus Magnesium Direct Bilirubin AST ALT Alkaline Phosphatase Lactate Dehydrogenase Troponin T C-Reactive Protein Total Protein Albumin Prealbumin Triglycerides Cholesterol LDL Cholesterol Direct HDL Cholesterol Urine pH Urine WBC (Auto) Urine Creatinine Urine Total Protein Fluid Total Protein Vancomycin Trough Rheumatoid Factor Complement C4 Miscellaneous Test Crossmatch 11/30/16 11/30/16 11/30/16 05:45 11:10 17:26 WBC RBC Hgb Hct MCV MCH MCHC RDW Plt Count Lymph % (Auto) [place] % (Auto) Lymph # [place] # Baso # Seg Neutrophils % Seg Neuts % (Manual) Lymphocytes % (Manual) Monocytes % (Manual) Eosinophils % (Manual) Basophils % (Manual) Nucleated RBC % Seg Neutrophils # Seg Neutrophils # Man Lymphocytes # (Manual) Monocytes # (Manual) Eosinophils # (Manual) Basophils # (Manual) PT INR Fibrinogen dRVVT Confirm Interp Factor V Activity POC ABG pH POC ABG pCO2 POC ABG pO2 ABG pO2 ABG HCO3 ABG Base Excess ABG Hemoglobin Oxyhemoglobin Sodium Potassium Chloride Carbon Dioxide BUN 45 H Creatinine 1.6 H Glucose 131 H POC Glucose 146 H 134 H Lactic Acid Calcium Phosphorus Magnesium Direct Bilirubin AST ALT Alkaline Phosphatase Lactate Dehydrogenase Troponin T C-Reactive Protein Total Protein Albumin Prealbumin Triglycerides Cholesterol LDL Cholesterol Direct HDL Cholesterol Urine pH Urine WBC (Auto) Urine Creatinine Urine Total Protein Fluid Total Protein Vancomycin Trough Rheumatoid Factor Complement C4 Miscellaneous Test Crossmatch 11/30/16 12/01/16 12/01/16 23:35 00:06 03:35 WBC RBC Hgb Hct MCV MCH MCHC RDW Plt Count Lymph % (Auto) [place] % (Auto) Lymph # [place] # Baso # Seg Neutrophils % Seg Neuts % (Manual) Lymphocytes % (Manual) Monocytes % (Manual) Eosinophils % (Manual) Basophils % (Manual) Nucleated RBC % Seg Neutrophils # Seg Neutrophils # Man Lymphocytes # (Manual) Monocytes # (Manual) Eosinophils # (Manual) Basophils # (Manual) PT INR Fibrinogen dRVVT Confirm Interp Factor V Activity POC ABG pH POC ABG pCO2 POC ABG pO2 ABG pO2 ABG HCO3 ABG Base Excess ABG Hemoglobin 6.9 L Oxyhemoglobin Sodium Potassium Chloride Carbon Dioxide BUN 58 H Creatinine 1.8 H Glucose 146 H POC Glucose 151 H Lactic Acid Calcium Phosphorus Magnesium Direct Bilirubin AST ALT Alkaline Phosphatase Lactate Dehydrogenase Troponin T C-Reactive Protein Total Protein Albumin Prealbumin Triglycerides Cholesterol LDL Cholesterol Direct HDL Cholesterol Urine pH Urine WBC (Auto) Urine Creatinine Urine Total Protein Fluid Total Protein Vancomycin Trough Rheumatoid Factor Complement C4 Miscellaneous Test Crossmatch 12/01/16 12/01/16 12/01/16 03:35 05:47 11:52 WBC 12.3 H RBC 2.82 L Hgb 7.8 L Hct 23.7 L MCV MCH MCHC RDW 16.7 H Plt Count Lymph % (Auto) [place] % (Auto) 9.8 H Lymph # [place] # 1.2 H Baso # Seg Neutrophils % Seg Neuts % (Manual) Lymphocytes % (Manual) Monocytes % (Manual) Eosinophils % (Manual) Basophils % (Manual) Nucleated RBC % Seg Neutrophils # 8.4 H Seg Neutrophils # Man Lymphocytes # (Manual) Monocytes # (Manual) Eosinophils # (Manual) Basophils # (Manual) PT INR Fibrinogen dRVVT Confirm Interp Factor V Activity POC ABG pH POC ABG pCO2 POC ABG pO2 ABG pO2 ABG HCO3 ABG Base Excess ABG Hemoglobin Oxyhemoglobin Sodium Potassium Chloride Carbon Dioxide BUN Creatinine Glucose POC Glucose 152 H 152 H Lactic Acid Calcium Phosphorus Magnesium Direct Bilirubin AST ALT Alkaline Phosphatase Lactate Dehydrogenase Troponin T C-Reactive Protein Total Protein Albumin Prealbumin Triglycerides Cholesterol LDL Cholesterol Direct HDL Cholesterol Urine pH Urine WBC (Auto) Urine Creatinine Urine Total Protein Fluid Total Protein Vancomycin Trough Rheumatoid Factor Complement C4 Miscellaneous Test Crossmatch 12/01/16 12/01/16 12/02/16 17:40 23:41 05:00 WBC RBC Hgb Hct MCV MCH MCHC RDW Plt Count Lymph % (Auto) [place] % (Auto) Lymph # [place] # Baso # Seg Neutrophils % Seg Neuts % (Manual) Lymphocytes % (Manual) Monocytes % (Manual) Eosinophils % (Manual) Basophils % (Manual) Nucleated RBC % Seg Neutrophils # Seg Neutrophils # Man Lymphocytes # (Manual) Monocytes # (Manual) Eosinophils # (Manual) Basophils # (Manual) PT INR Fibrinogen dRVVT Confirm Interp Factor V Activity POC ABG pH POC ABG pCO2 POC ABG pO2 ABG pO2 ABG HCO3 ABG Base Excess ABG Hemoglobin Oxyhemoglobin Sodium Potassium Chloride Carbon Dioxide BUN 45 H Creatinine Glucose 115 H POC Glucose 140 H 144 H Lactic Acid Calcium Phosphorus Magnesium Direct Bilirubin AST ALT Alkaline Phosphatase Lactate Dehydrogenase Troponin T C-Reactive Protein Total Protein Albumin Prealbumin Triglycerides Cholesterol LDL Cholesterol Direct HDL Cholesterol Urine pH Urine WBC (Auto) Urine Creatinine Urine Total Protein Fluid Total Protein Vancomycin Trough Rheumatoid Factor Complement C4 Miscellaneous Test Crossmatch 12/02/16 12/02/16 12/02/16 05:31 11:20 17:38 WBC RBC Hgb Hct MCV MCH MCHC RDW Plt Count Lymph % (Auto) [place] % (Auto) Lymph # [place] # Baso # Seg Neutrophils % Seg Neuts % (Manual) Lymphocytes % (Manual) Monocytes % (Manual) Eosinophils % (Manual) Basophils % (Manual) Nucleated RBC % Seg Neutrophils # Seg Neutrophils # Man Lymphocytes # (Manual) Monocytes # (Manual) Eosinophils # (Manual) Basophils # (Manual) PT INR Fibrinogen dRVVT Confirm Interp Factor V Activity POC ABG pH POC ABG pCO2 POC ABG pO2 ABG pO2 ABG HCO3 ABG Base Excess ABG Hemoglobin Oxyhemoglobin Sodium Potassium Chloride Carbon Dioxide BUN Creatinine Glucose POC Glucose 136 H 177 H 139 H Lactic Acid Calcium Phosphorus Magnesium Direct Bilirubin AST ALT Alkaline Phosphatase Lactate Dehydrogenase Troponin T C-Reactive Protein Total Protein Albumin Prealbumin Triglycerides Cholesterol LDL Cholesterol Direct HDL Cholesterol Urine pH Urine WBC (Auto) Urine Creatinine Urine Total Protein Fluid Total Protein Vancomycin Trough Rheumatoid Factor Complement C4 Miscellaneous Test Crossmatch 12/02/16 12/03/16 12/03/16 23:43 04:00 04:00 WBC 20.4 H RBC 2.74 L Hgb 7.4 L Hct 23.6 L MCV MCH 27 L MCHC RDW 17.1 H Plt Count Lymph % (Auto) [place] % (Auto) Lymph # [place] # Baso # Seg Neutrophils % Seg Neuts % (Manual) 31.0 L Lymphocytes % (Manual) Monocytes % (Manual) Eosinophils % (Manual) Basophils % (Manual) Nucleated RBC % Seg Neutrophils # Seg Neutrophils # Man Lymphocytes # (Manual) Monocytes # (Manual) Eosinophils # (Manual) Basophils # (Manual) PT INR Fibrinogen dRVVT Confirm Interp Factor V Activity POC ABG pH POC ABG pCO2 POC ABG pO2 ABG pO2 ABG HCO3 ABG Base Excess ABG Hemoglobin Oxyhemoglobin Sodium Potassium Chloride Carbon Dioxide BUN 61 H Creatinine 1.6 H Glucose 119 H POC Glucose 158 H Lactic Acid Calcium Phosphorus Magnesium Direct Bilirubin AST ALT Alkaline Phosphatase Lactate Dehydrogenase Troponin T C-Reactive Protein Total Protein Albumin Prealbumin Triglycerides Cholesterol LDL Cholesterol Direct HDL Cholesterol Urine pH Urine WBC (Auto) Urine Creatinine Urine Total Protein Fluid Total Protein Vancomycin Trough Rheumatoid Factor Complement C4 Miscellaneous Test Crossmatch 12/03/16 12/03/16 12/03/16 05:02 12:11 18:16 WBC RBC Hgb Hct MCV MCH MCHC RDW Plt Count Lymph % (Auto) [place] % (Auto) Lymph # [place] # Baso # Seg Neutrophils % Seg Neuts % (Manual) Lymphocytes % (Manual) Monocytes % (Manual) Eosinophils % (Manual) Basophils % (Manual) Nucleated RBC % Seg Neutrophils # Seg Neutrophils # Man Lymphocytes # (Manual) Monocytes # (Manual) Eosinophils # (Manual) Basophils # (Manual) PT INR Fibrinogen dRVVT Confirm Interp Factor V Activity POC ABG pH POC ABG pCO2 POC ABG pO2 ABG pO2 ABG HCO3 ABG Base Excess ABG Hemoglobin Oxyhemoglobin Sodium Potassium Chloride Carbon Dioxide BUN Creatinine Glucose POC Glucose 146 H 157 H 124 H Lactic Acid Calcium Phosphorus Magnesium Direct Bilirubin AST ALT Alkaline Phosphatase Lactate Dehydrogenase Troponin T C-Reactive Protein Total Protein Albumin Prealbumin Triglycerides Cholesterol LDL Cholesterol Direct HDL Cholesterol Urine pH Urine WBC (Auto) Urine Creatinine Urine Total Protein Fluid Total Protein Vancomycin Trough Rheumatoid Factor Complement C4 Miscellaneous Test Crossmatch 12/03/16 12/04/16 12/04/16 23:41 04:00 04:45 WBC RBC Hgb Hct MCV MCH MCHC RDW Plt Count Lymph % (Auto) [place] % (Auto) Lymph # [place] # Baso # Seg Neutrophils % Seg Neuts % (Manual) Lymphocytes % (Manual) Monocytes % (Manual) Eosinophils % (Manual) Basophils % (Manual) Nucleated RBC % Seg Neutrophils # Seg Neutrophils # Man Lymphocytes # (Manual) Monocytes # (Manual) Eosinophils # (Manual) Basophils # (Manual) PT INR Fibrinogen dRVVT Confirm Interp Factor V Activity POC ABG pH POC ABG pCO2 POC ABG pO2 ABG pO2 ABG HCO3 ABG Base Excess ABG Hemoglobin Oxyhemoglobin Sodium Potassium Chloride Carbon Dioxide BUN 76 H Creatinine 1.6 H Glucose POC Glucose 130 H 136 H Lactic Acid Calcium Phosphorus Magnesium Direct Bilirubin AST ALT Alkaline Phosphatase 155 H Lactate Dehydrogenase Troponin T C-Reactive Protein Total Protein 5.5 L Albumin 1.5 L Prealbumin Triglycerides Cholesterol LDL Cholesterol Direct HDL Cholesterol Urine pH Urine WBC (Auto) Urine Creatinine Urine Total Protein Fluid Total Protein Vancomycin Trough Rheumatoid Factor Complement C4 Miscellaneous Test Crossmatch 12/04/16 12/04/16 12/05/16 12:08 17:23 00:10 WBC RBC Hgb Hct MCV MCH MCHC RDW Plt Count Lymph % (Auto) [place] % (Auto) Lymph # [place] # Baso # Seg Neutrophils % Seg Neuts % (Manual) Lymphocytes % (Manual) Monocytes % (Manual) Eosinophils % (Manual) Basophils % (Manual) Nucleated RBC % Seg Neutrophils # Seg Neutrophils # Man Lymphocytes # (Manual) Monocytes # (Manual) Eosinophils # (Manual) Basophils # (Manual) PT INR Fibrinogen dRVVT Confirm Interp Factor V Activity POC ABG pH POC ABG pCO2 POC ABG pO2 ABG pO2 ABG HCO3 ABG Base Excess ABG Hemoglobin Oxyhemoglobin Sodium Potassium Chloride Carbon Dioxide BUN Creatinine Glucose POC Glucose 114 H 129 H 124 H Lactic Acid Calcium Phosphorus Magnesium Direct Bilirubin AST ALT Alkaline Phosphatase Lactate Dehydrogenase Troponin T C-Reactive Protein Total Protein Albumin Prealbumin Triglycerides Cholesterol LDL Cholesterol Direct HDL Cholesterol Urine pH Urine WBC (Auto) Urine Creatinine Urine Total Protein Fluid Total Protein Vancomycin Trough Rheumatoid Factor Complement C4 Miscellaneous Test Crossmatch 12/05/16 12/05/16 12/05/16 05:00 05:00 05:18 WBC RBC Hgb Hct MCV MCH MCHC RDW Plt Count Lymph % (Auto) [place] % (Auto) Lymph # [place] # Baso # Seg Neutrophils % Seg Neuts % (Manual) Lymphocytes % (Manual) Monocytes % (Manual) Eosinophils % (Manual) Basophils % (Manual) Nucleated RBC % Seg Neutrophils # Seg Neutrophils # Man Lymphocytes # (Manual) Monocytes # (Manual) Eosinophils # (Manual) Basophils # (Manual) PT INR Fibrinogen dRVVT Confirm Interp Factor V Activity POC ABG pH POC ABG pCO2 POC ABG pO2 ABG pO2 ABG HCO3 ABG Base Excess ABG Hemoglobin Oxyhemoglobin Sodium Potassium Chloride Carbon Dioxide 21 L BUN 85 H Creatinine 1.9 H Glucose 131 H POC Glucose 154 H Lactic Acid Calcium Phosphorus Magnesium Direct Bilirubin AST ALT Alkaline Phosphatase Lactate Dehydrogenase Troponin T C-Reactive Protein 19.30 H Total Protein Albumin Prealbumin Triglycerides Cholesterol LDL Cholesterol Direct HDL Cholesterol Urine pH Urine WBC (Auto) Urine Creatinine Urine Total Protein Fluid Total Protein Vancomycin Trough Rheumatoid Factor Complement C4 Miscellaneous Test Crossmatch 12/05/16 12/05/16 12/05/16 11:43 17:46 23:25 WBC RBC Hgb Hct MCV MCH MCHC RDW Plt Count Lymph % (Auto) [place] % (Auto) Lymph # [place] # Baso # Seg Neutrophils % Seg Neuts % (Manual) Lymphocytes % (Manual) Monocytes % (Manual) Eosinophils % (Manual) Basophils % (Manual) Nucleated RBC % Seg Neutrophils # Seg Neutrophils # Man Lymphocytes # (Manual) Monocytes # (Manual) Eosinophils # (Manual) Basophils # (Manual) PT INR Fibrinogen dRVVT Confirm Interp Factor V Activity POC ABG pH POC ABG pCO2 POC ABG pO2 ABG pO2 ABG HCO3 ABG Base Excess ABG Hemoglobin Oxyhemoglobin Sodium Potassium Chloride Carbon Dioxide BUN Creatinine Glucose POC Glucose 117 H 113 H 111 H Lactic Acid Calcium Phosphorus Magnesium Direct Bilirubin AST ALT Alkaline Phosphatase Lactate Dehydrogenase Troponin T C-Reactive Protein Total Protein Albumin Prealbumin Triglycerides Cholesterol LDL Cholesterol Direct HDL Cholesterol Urine pH Urine WBC (Auto) Urine Creatinine Urine Total Protein Fluid Total Protein Vancomycin Trough Rheumatoid Factor Complement C4 Miscellaneous Test Crossmatch 12/05/16 12/06/16 12/06/16 Unknown 04:58 06:00 WBC RBC Hgb Hct MCV MCH MCHC RDW Plt Count Lymph % (Auto) [place] % (Auto) Lymph # [place] # Baso # Seg Neutrophils % Seg Neuts % (Manual) Lymphocytes % (Manual) Monocytes % (Manual) Eosinophils % (Manual) Basophils % (Manual) Nucleated RBC % Seg Neutrophils # Seg Neutrophils # Man Lymphocytes # (Manual) Monocytes # (Manual) Eosinophils # (Manual) Basophils # (Manual) PT INR Fibrinogen dRVVT Confirm Interp Factor V Activity POC ABG pH POC ABG pCO2 POC ABG pO2 ABG pO2 75.2 L ABG HCO3 ABG Base Excess -3.4 L ABG Hemoglobin 7.4 L Oxyhemoglobin 94.5 L Sodium Potassium Chloride Carbon Dioxide 20 L BUN 99 H Creatinine 2.1 H Glucose 126 H POC Glucose 145 H Lactic Acid Calcium Phosphorus 4.80 H Magnesium Direct Bilirubin AST ALT Alkaline Phosphatase Lactate Dehydrogenase Troponin T C-Reactive Protein Total Protein Albumin Prealbumin Triglycerides Cholesterol LDL Cholesterol Direct HDL Cholesterol Urine pH Urine WBC (Auto) Urine Creatinine Urine Total Protein Fluid Total Protein Vancomycin Trough Rheumatoid Factor Complement C4 Miscellaneous Test Crossmatch 12/06/16 12/06/16 12/06/16 06:46 11:54 17:55 WBC RBC Hgb 8.3 L Hct 26.4 L MCV MCH MCHC RDW Plt Count Lymph % (Auto) [place] % (Auto) Lymph # [place] # Baso # Seg Neutrophils % Seg Neuts % (Manual) Lymphocytes % (Manual) Monocytes % (Manual) Eosinophils % (Manual) Basophils % (Manual) Nucleated RBC % Seg Neutrophils # Seg Neutrophils # Man Lymphocytes # (Manual) Monocytes # (Manual) Eosinophils # (Manual) Basophils # (Manual) PT INR Fibrinogen dRVVT Confirm Interp Factor V Activity POC ABG pH POC ABG pCO2 POC ABG pO2 ABG pO2 ABG HCO3 ABG Base Excess ABG Hemoglobin Oxyhemoglobin Sodium Potassium Chloride Carbon Dioxide BUN Creatinine Glucose POC Glucose 126 H 157 H Lactic Acid Calcium Phosphorus Magnesium Direct Bilirubin AST ALT Alkaline Phosphatase Lactate Dehydrogenase Troponin T C-Reactive Protein Total Protein Albumin Prealbumin Triglycerides Cholesterol LDL Cholesterol Direct HDL Cholesterol Urine pH Urine WBC (Auto) Urine Creatinine Urine Total Protein Fluid Total Protein Vancomycin Trough Rheumatoid Factor Complement C4 Miscellaneous Test Crossmatch 12/06/16 12/07/16 12/07/16 23:59 05:34 06:30 WBC RBC Hgb Hct MCV MCH MCHC RDW Plt Count Lymph % (Auto) [place] % (Auto) Lymph # [place] # Baso # Seg Neutrophils % Seg Neuts % (Manual) Lymphocytes % (Manual) Monocytes % (Manual) Eosinophils % (Manual) Basophils % (Manual) Nucleated RBC % Seg Neutrophils # Seg Neutrophils # Man Lymphocytes # (Manual) Monocytes # (Manual) Eosinophils # (Manual) Basophils # (Manual) PT INR Fibrinogen dRVVT Confirm Interp Factor V Activity POC ABG pH POC ABG pCO2 POC ABG pO2 ABG pO2 ABG HCO3 ABG Base Excess ABG Hemoglobin Oxyhemoglobin Sodium Potassium Chloride Carbon Dioxide BUN 67 H Creatinine 1.4 H Glucose 126 H POC Glucose 129 H 129 H Lactic Acid Calcium Phosphorus Magnesium Direct Bilirubin AST ALT Alkaline Phosphatase Lactate Dehydrogenase Troponin T C-Reactive Protein Total Protein Albumin Prealbumin Triglycerides Cholesterol LDL Cholesterol Direct HDL Cholesterol Urine pH Urine WBC (Auto) Urine Creatinine Urine Total Protein Fluid Total Protein Vancomycin Trough Rheumatoid Factor Complement C4 Miscellaneous Test Crossmatch 12/07/16 12/07/16 12/07/16 06:30 08:00 09:45 WBC 18.8 H RBC 2.52 L Hgb 6.9 L 6.8 L Hct 21.2 L 21.1 L MCV MCH 27 L MCHC RDW 18.0 H Plt Count Lymph % (Auto) [place] % (Auto) 9.9 H Lymph # [place] # 1.9 H Baso # Seg Neutrophils % 71.8 H Seg Neuts % (Manual) Lymphocytes % (Manual) Monocytes % (Manual) Eosinophils % (Manual) Basophils % (Manual) Nucleated RBC % Seg Neutrophils # 13.5 H Seg Neutrophils # Man Lymphocytes # (Manual) Monocytes # (Manual) Eosinophils # (Manual) Basophils # (Manual) PT INR Fibrinogen dRVVT Confirm Interp Factor V Activity POC ABG pH POC ABG pCO2 POC ABG pO2 ABG pO2 ABG HCO3 ABG Base Excess ABG Hemoglobin Oxyhemoglobin Sodium Potassium Chloride Carbon Dioxide BUN Creatinine Glucose POC Glucose Lactic Acid Calcium Phosphorus Magnesium Direct Bilirubin AST ALT Alkaline Phosphatase Lactate Dehydrogenase Troponin T C-Reactive Protein Total Protein Albumin Prealbumin Triglycerides Cholesterol LDL Cholesterol Direct HDL Cholesterol Urine pH Urine WBC (Auto) Urine Creatinine Urine Total Protein Fluid Total Protein Vancomycin Trough Rheumatoid Factor Complement C4 Miscellaneous Test Crossmatch See Detail 12/07/16 12/07/16 12/07/16 11:44 18:19 23:59 WBC RBC Hgb Hct MCV MCH MCHC RDW Plt Count Lymph % (Auto) [place] % (Auto) Lymph # [place] # Baso # Seg Neutrophils % Seg Neuts % (Manual) Lymphocytes % (Manual) Monocytes % (Manual) Eosinophils % (Manual) Basophils % (Manual) Nucleated RBC % Seg Neutrophils # Seg Neutrophils # Man Lymphocytes # (Manual) Monocytes # (Manual) Eosinophils # (Manual) Basophils # (Manual) PT INR Fibrinogen dRVVT Confirm Interp Factor V Activity POC ABG pH POC ABG pCO2 POC ABG pO2 ABG pO2 ABG HCO3 ABG Base Excess ABG Hemoglobin Oxyhemoglobin Sodium Potassium Chloride Carbon Dioxide BUN Creatinine Glucose POC Glucose 137 H 138 H 133 H Lactic Acid Calcium Phosphorus Magnesium Direct Bilirubin AST ALT Alkaline Phosphatase Lactate Dehydrogenase Troponin T C-Reactive Protein Total Protein Albumin Prealbumin Triglycerides Cholesterol LDL Cholesterol Direct HDL Cholesterol Urine pH Urine WBC (Auto) Urine Creatinine Urine Total Protein Fluid Total Protein Vancomycin Trough Rheumatoid Factor Complement C4 Miscellaneous Test Crossmatch 12/08/16 12/08/16 12/08/16 05:25 05:30 05:30 WBC 23.8 H RBC 2.88 L Hgb 8.1 L Hct 24.3 L MCV MCH MCHC RDW 16.7 H Plt Count Lymph % (Auto) [place] % (Auto) Lymph # [place] # Baso # Seg Neutrophils % Seg Neuts % (Manual) 76.0 H Lymphocytes % (Manual) 9.0 L Monocytes % (Manual) 9.0 H Eosinophils % (Manual) Basophils % (Manual) Nucleated RBC % Seg Neutrophils # Seg Neutrophils # Man 18.1 H Lymphocytes # (Manual) Monocytes # (Manual) 2.1 H Eosinophils # (Manual) Basophils # (Manual) PT INR Fibrinogen dRVVT Confirm Interp Factor V Activity POC ABG pH POC ABG pCO2 POC ABG pO2 ABG pO2 ABG HCO3 ABG Base Excess ABG Hemoglobin Oxyhemoglobin Sodium Potassium Chloride Carbon Dioxide 21 L BUN 76 H Creatinine 1.6 H Glucose 133 H POC Glucose 177 H Lactic Acid Calcium Phosphorus Magnesium Direct Bilirubin AST ALT Alkaline Phosphatase Lactate Dehydrogenase Troponin T C-Reactive Protein Total Protein Albumin Prealbumin Triglycerides Cholesterol LDL Cholesterol Direct HDL Cholesterol Urine pH Urine WBC (Auto) Urine Creatinine Urine Total Protein Fluid Total Protein Vancomycin Trough Rheumatoid Factor Complement C4 Miscellaneous Test Crossmatch 12/08/16 12/08/16 12/09/16 11:45 18:00 00:00 WBC RBC Hgb Hct MCV MCH MCHC RDW Plt Count Lymph % (Auto) [place] % (Auto) Lymph # [place] # Baso # Seg Neutrophils % Seg Neuts % (Manual) Lymphocytes % (Manual) Monocytes % (Manual) Eosinophils % (Manual) Basophils % (Manual) Nucleated RBC % Seg Neutrophils # Seg Neutrophils # Man Lymphocytes # (Manual) Monocytes # (Manual) Eosinophils # (Manual) Basophils # (Manual) PT INR Fibrinogen dRVVT Confirm Interp Factor V Activity POC ABG pH POC ABG pCO2 POC ABG pO2 ABG pO2 ABG HCO3 ABG Base Excess ABG Hemoglobin Oxyhemoglobin Sodium Potassium Chloride Carbon Dioxide BUN Creatinine Glucose POC Glucose 163 H 123 H 137 H Lactic Acid Calcium Phosphorus Magnesium Direct Bilirubin AST ALT Alkaline Phosphatase Lactate Dehydrogenase Troponin T C-Reactive Protein Total Protein Albumin Prealbumin Triglycerides Cholesterol LDL Cholesterol Direct HDL Cholesterol Urine pH Urine WBC (Auto) Urine Creatinine Urine Total Protein Fluid Total Protein Vancomycin Trough Rheumatoid Factor Complement C4 Miscellaneous Test Crossmatch 12/09/16 12/09/16 12/09/16 05:34 06:00 06:00 WBC 15.5 H RBC 2.87 L Hgb 8.0 L Hct 24.2 L MCV MCH MCHC RDW 17.2 H Plt Count Lymph % (Auto) [place] % (Auto) 11.6 H Lymph # [place] # 1.8 H Baso # Seg Neutrophils % 70.8 H Seg Neuts % (Manual) Lymphocytes % (Manual) Monocytes % (Manual) Eosinophils % (Manual) Basophils % (Manual) Nucleated RBC % Seg Neutrophils # 11.0 H Seg Neutrophils # Man Lymphocytes # (Manual) Monocytes # (Manual) Eosinophils # (Manual) Basophils # (Manual) PT INR Fibrinogen dRVVT Confirm Interp Factor V Activity POC ABG pH POC ABG pCO2 POC ABG pO2 ABG pO2 ABG HCO3 ABG Base Excess ABG Hemoglobin Oxyhemoglobin Sodium Potassium Chloride Carbon Dioxide BUN 51 H Creatinine Glucose 117 H POC Glucose 136 H Lactic Acid Calcium Phosphorus Magnesium Direct Bilirubin AST ALT Alkaline Phosphatase Lactate Dehydrogenase Troponin T C-Reactive Protein Total Protein Albumin Prealbumin Triglycerides Cholesterol LDL Cholesterol Direct HDL Cholesterol Urine pH Urine WBC (Auto) Urine Creatinine Urine Total Protein Fluid Total Protein Vancomycin Trough Rheumatoid Factor Complement C4 Miscellaneous Test Crossmatch 12/09/16 12/09/16 12/09/16 12:29 17:52 23:10 WBC RBC Hgb Hct MCV MCH MCHC RDW Plt Count Lymph % (Auto) [place] % (Auto) Lymph # [place] # Baso # Seg Neutrophils % Seg Neuts % (Manual) Lymphocytes % (Manual) Monocytes % (Manual) Eosinophils % (Manual) Basophils % (Manual) Nucleated RBC % Seg Neutrophils # Seg Neutrophils # Man Lymphocytes # (Manual) Monocytes # (Manual) Eosinophils # (Manual) Basophils # (Manual) PT INR Fibrinogen dRVVT Confirm Interp Factor V Activity POC ABG pH POC ABG pCO2 POC ABG pO2 ABG pO2 ABG HCO3 ABG Base Excess ABG Hemoglobin Oxyhemoglobin Sodium Potassium Chloride Carbon Dioxide BUN Creatinine Glucose POC Glucose 139 H 140 H 129 H Lactic Acid Calcium Phosphorus Magnesium Direct Bilirubin AST ALT Alkaline Phosphatase Lactate Dehydrogenase Troponin T C-Reactive Protein Total Protein Albumin Prealbumin Triglycerides Cholesterol LDL Cholesterol Direct HDL Cholesterol Urine pH Urine WBC (Auto) Urine Creatinine Urine Total Protein Fluid Total Protein Vancomycin Trough Rheumatoid Factor Complement C4 Miscellaneous Test Crossmatch 12/10/16 12/10/16 12/10/16 05:00 05:00 06:54 WBC 15.7 H RBC 2.87 L Hgb 8.2 L Hct 24.4 L MCV MCH MCHC RDW 17.2 H Plt Count Lymph % (Auto) [place] % (Auto) 8.3 H Lymph # [place] # 1.3 H Baso # Seg Neutrophils % 72.8 H Seg Neuts % (Manual) Lymphocytes % (Manual) Monocytes % (Manual) Eosinophils % (Manual) Basophils % (Manual) Nucleated RBC % Seg Neutrophils # 11.4 H Seg Neutrophils # Man Lymphocytes # (Manual) Monocytes # (Manual) Eosinophils # (Manual) Basophils # (Manual) PT INR Fibrinogen dRVVT Confirm Interp Factor V Activity POC ABG pH POC ABG pCO2 POC ABG pO2 ABG pO2 ABG HCO3 ABG Base Excess ABG Hemoglobin Oxyhemoglobin Sodium Potassium Chloride Carbon Dioxide BUN 64 H Creatinine 1.4 H Glucose 134 H POC Glucose 154 H Lactic Acid Calcium Phosphorus Magnesium Direct Bilirubin AST ALT Alkaline Phosphatase Lactate Dehydrogenase Troponin T C-Reactive Protein Total Protein Albumin Prealbumin Triglycerides Cholesterol LDL Cholesterol Direct HDL Cholesterol Urine pH Urine WBC (Auto) Urine Creatinine Urine Total Protein Fluid Total Protein Vancomycin Trough Rheumatoid Factor Complement C4 Miscellaneous Test Crossmatch 12/10/16 12/10/16 12/10/16 11:58 17:29 23:52 WBC RBC Hgb Hct MCV MCH MCHC RDW Plt Count Lymph % (Auto) [place] % (Auto) Lymph # [place] # Baso # Seg Neutrophils % Seg Neuts % (Manual) Lymphocytes % (Manual) Monocytes % (Manual) Eosinophils % (Manual) Basophils % (Manual) Nucleated RBC % Seg Neutrophils # Seg Neutrophils # Man Lymphocytes # (Manual) Monocytes # (Manual) Eosinophils # (Manual) Basophils # (Manual) PT INR Fibrinogen dRVVT Confirm Interp Factor V Activity POC ABG pH POC ABG pCO2 POC ABG pO2 ABG pO2 ABG HCO3 ABG Base Excess ABG Hemoglobin Oxyhemoglobin Sodium Potassium Chloride Carbon Dioxide BUN Creatinine Glucose POC Glucose 144 H 163 H 125 H Lactic Acid Calcium Phosphorus Magnesium Direct Bilirubin AST ALT Alkaline Phosphatase Lactate Dehydrogenase Troponin T C-Reactive Protein Total Protein Albumin Prealbumin Triglycerides Cholesterol LDL Cholesterol Direct HDL Cholesterol Urine pH Urine WBC (Auto) Urine Creatinine Urine Total Protein Fluid Total Protein Vancomycin Trough Rheumatoid Factor Complement C4 Miscellaneous Test Crossmatch 12/11/16 12/11/16 12/11/16 05:38 06:30 06:30 WBC 14.4 H RBC 2.76 L Hgb 7.7 L Hct 23.4 L MCV MCH MCHC RDW 17.2 H Plt Count Lymph % (Auto) [place] % (Auto) 8.8 H Lymph # [place] # 1.3 H Baso # Seg Neutrophils % 72.5 H Seg Neuts % (Manual) Lymphocytes % (Manual) Monocytes % (Manual) Eosinophils % (Manual) Basophils % (Manual) Nucleated RBC % Seg Neutrophils # 10.5 H Seg Neutrophils # Man Lymphocytes # (Manual) Monocytes # (Manual) Eosinophils # (Manual) Basophils # (Manual) PT INR Fibrinogen dRVVT Confirm Interp Factor V Activity POC ABG pH POC ABG pCO2 POC ABG pO2 ABG pO2 ABG HCO3 ABG Base Excess ABG Hemoglobin Oxyhemoglobin Sodium Potassium Chloride Carbon Dioxide BUN 43 H Creatinine Glucose 124 H POC Glucose 141 H Lactic Acid Calcium 8.3 L Phosphorus Magnesium 1.60 L Direct Bilirubin AST ALT Alkaline Phosphatase Lactate Dehydrogenase Troponin T C-Reactive Protein Total Protein Albumin Prealbumin Triglycerides Cholesterol LDL Cholesterol Direct HDL Cholesterol Urine pH Urine WBC (Auto) Urine Creatinine Urine Total Protein Fluid Total Protein Vancomycin Trough Rheumatoid Factor Complement C4 Miscellaneous Test Crossmatch 12/11/16 12/11/16 12/11/16 11:15 17:59 23:48 WBC RBC Hgb Hct MCV MCH MCHC RDW Plt Count Lymph % (Auto) [place] % (Auto) Lymph # [place] # Baso # Seg Neutrophils % Seg Neuts % (Manual) Lymphocytes % (Manual) Monocytes % (Manual) Eosinophils % (Manual) Basophils % (Manual) Nucleated RBC % Seg Neutrophils # Seg Neutrophils # Man Lymphocytes # (Manual) Monocytes # (Manual) Eosinophils # (Manual) Basophils # (Manual) PT INR Fibrinogen dRVVT Confirm Interp Factor V Activity POC ABG pH POC ABG pCO2 POC ABG pO2 ABG pO2 ABG HCO3 ABG Base Excess ABG Hemoglobin Oxyhemoglobin Sodium Potassium Chloride Carbon Dioxide BUN Creatinine Glucose POC Glucose 188 H 106 H 119 H Lactic Acid Calcium Phosphorus Magnesium Direct Bilirubin AST ALT Alkaline Phosphatase Lactate Dehydrogenase Troponin T C-Reactive Protein Total Protein Albumin Prealbumin Triglycerides Cholesterol LDL Cholesterol Direct HDL Cholesterol Urine pH Urine WBC (Auto) Urine Creatinine Urine Total Protein Fluid Total Protein Vancomycin Trough Rheumatoid Factor Complement C4 Miscellaneous Test Crossmatch 12/12/16 12/12/16 12/12/16 05:00 06:01 12:20 WBC 16.7 H RBC 2.87 L Hgb 8.0 L Hct 24.2 L MCV MCH MCHC RDW 17.6 H Plt Count Lymph % (Auto) [place] % (Auto) Lymph # [place] # 1.2 H Baso # Seg Neutrophils % 75.3 H Seg Neuts % (Manual) Lymphocytes % (Manual) Monocytes % (Manual) Eosinophils % (Manual) Basophils % (Manual) Nucleated RBC % Seg Neutrophils # 12.6 H Seg Neutrophils # Man Lymphocytes # (Manual) Monocytes # (Manual) Eosinophils # (Manual) Basophils # (Manual) PT INR Fibrinogen dRVVT Confirm Interp Factor V Activity POC ABG pH POC ABG pCO2 POC ABG pO2 ABG pO2 ABG HCO3 ABG Base Excess ABG Hemoglobin Oxyhemoglobin Sodium Potassium Chloride Carbon Dioxide BUN Creatinine Glucose POC Glucose 134 H 149 H Lactic Acid Calcium Phosphorus Magnesium Direct Bilirubin AST ALT Alkaline Phosphatase Lactate Dehydrogenase Troponin T C-Reactive Protein Total Protein Albumin Prealbumin Triglycerides Cholesterol LDL Cholesterol Direct HDL Cholesterol Urine pH Urine WBC (Auto) Urine Creatinine Urine Total Protein Fluid Total Protein Vancomycin Trough Rheumatoid Factor Complement C4 Miscellaneous Test Crossmatch 12/12/16 12/12/16 12/12/16 17:38 23:01 Unknown WBC RBC Hgb Hct MCV MCH MCHC RDW Plt Count Lymph % (Auto) [place] % (Auto) Lymph # [place] # Baso # Seg Neutrophils % Seg Neuts % (Manual) Lymphocytes % (Manual) Monocytes % (Manual) Eosinophils % (Manual) Basophils % (Manual) Nucleated RBC % Seg Neutrophils # Seg Neutrophils # Man Lymphocytes # (Manual) Monocytes # (Manual) Eosinophils # (Manual) Basophils # (Manual) PT INR Fibrinogen dRVVT Confirm Interp Factor V Activity POC ABG pH POC ABG pCO2 POC ABG pO2 ABG pO2 ABG HCO3 ABG Base Excess ABG Hemoglobin Oxyhemoglobin Sodium Potassium Chloride Carbon Dioxide BUN 60 H Creatinine 1.3 H Glucose 126 H POC Glucose 127 H 144 H Lactic Acid Calcium Phosphorus Magnesium Direct Bilirubin AST ALT Alkaline Phosphatase Lactate Dehydrogenase Troponin T C-Reactive Protein Total Protein Albumin Prealbumin Triglycerides Cholesterol LDL Cholesterol Direct HDL Cholesterol Urine pH Urine WBC (Auto) Urine Creatinine Urine Total Protein Fluid Total Protein Vancomycin Trough Rheumatoid Factor Complement C4 Miscellaneous Test Crossmatch 12/13/16 12/13/16 12/13/16 04:00 04:00 05:19 WBC 18.7 H RBC 2.89 L Hgb 8.3 L Hct 24.6 L MCV MCH MCHC RDW 17.5 H Plt Count Lymph % (Auto) [place] % (Auto) Lymph # [place] # 1.3 H Baso # Seg Neutrophils % 71.5 H Seg Neuts % (Manual) Lymphocytes % (Manual) Monocytes % (Manual) Eosinophils % (Manual) Basophils % (Manual) Nucleated RBC % Seg Neutrophils # 13.4 H Seg Neutrophils # Man Lymphocytes # (Manual) Monocytes # (Manual) Eosinophils # (Manual) Basophils # (Manual) PT INR Fibrinogen dRVVT Confirm Interp Factor V Activity POC ABG pH POC ABG pCO2 POC ABG pO2 ABG pO2 ABG HCO3 ABG Base Excess ABG Hemoglobin Oxyhemoglobin Sodium Potassium Chloride Carbon Dioxide BUN 73 H Creatinine 1.5 H Glucose 141 H POC Glucose 171 H Lactic Acid Calcium Phosphorus Magnesium Direct Bilirubin AST ALT Alkaline Phosphatase Lactate Dehydrogenase Troponin T C-Reactive Protein Total Protein Albumin Prealbumin Triglycerides Cholesterol LDL Cholesterol Direct HDL Cholesterol Urine pH Urine WBC (Auto) Urine Creatinine Urine Total Protein Fluid Total Protein Vancomycin Trough Rheumatoid Factor Complement C4 Miscellaneous Test Crossmatch 12/13/16 12/13/16 12/14/16 12:28 16:48 00:01 WBC RBC Hgb Hct MCV MCH MCHC RDW Plt Count Lymph % (Auto) [place] % (Auto) Lymph # [place] # Baso # Seg Neutrophils % Seg Neuts % (Manual) Lymphocytes % (Manual) Monocytes % (Manual) Eosinophils % (Manual) Basophils % (Manual) Nucleated RBC % Seg Neutrophils # Seg Neutrophils # Man Lymphocytes # (Manual) Monocytes # (Manual) Eosinophils # (Manual) Basophils # (Manual) PT INR Fibrinogen dRVVT Confirm Interp Factor V Activity POC ABG pH POC ABG pCO2 POC ABG pO2 ABG pO2 ABG HCO3 ABG Base Excess ABG Hemoglobin Oxyhemoglobin Sodium Potassium Chloride Carbon Dioxide BUN Creatinine Glucose POC Glucose 206 H 173 H 139 H Lactic Acid Calcium Phosphorus Magnesium Direct Bilirubin AST ALT Alkaline Phosphatase Lactate Dehydrogenase Troponin T C-Reactive Protein Total Protein Albumin Prealbumin Triglycerides Cholesterol LDL Cholesterol Direct HDL Cholesterol Urine pH Urine WBC (Auto) Urine Creatinine Urine Total Protein Fluid Total Protein Vancomycin Trough Rheumatoid Factor Complement C4 Miscellaneous Test Crossmatch 12/14/16 12/14/16 12/14/16 05:16 06:10 11:17 WBC RBC Hgb Hct MCV MCH MCHC RDW Plt Count Lymph % (Auto) [place] % (Auto) Lymph # [place] # Baso # Seg Neutrophils % Seg Neuts % (Manual) Lymphocytes % (Manual) Monocytes % (Manual) Eosinophils % (Manual) Basophils % (Manual) Nucleated RBC % Seg Neutrophils # Seg Neutrophils # Man Lymphocytes # (Manual) Monocytes # (Manual) Eosinophils # (Manual) Basophils # (Manual) PT INR Fibrinogen dRVVT Confirm Interp Factor V Activity POC ABG pH POC ABG pCO2 POC ABG pO2 ABG pO2 ABG HCO3 ABG Base Excess ABG Hemoglobin Oxyhemoglobin Sodium Potassium Chloride Carbon Dioxide BUN 57 H Creatinine 1.4 H Glucose 135 H POC Glucose 158 H 137 H Lactic Acid Calcium Phosphorus Magnesium Direct Bilirubin AST ALT Alkaline Phosphatase Lactate Dehydrogenase Troponin T C-Reactive Protein Total Protein Albumin Prealbumin Triglycerides Cholesterol LDL Cholesterol Direct HDL Cholesterol Urine pH Urine WBC (Auto) Urine Creatinine Urine Total Protein Fluid Total Protein Vancomycin Trough Rheumatoid Factor Complement C4 Miscellaneous Test Crossmatch 12/14/16 12/14/16 12/15/16 17:52 23:27 04:00 WBC RBC Hgb Hct MCV MCH MCHC RDW Plt Count Lymph % (Auto) [place] % (Auto) Lymph # [place] # Baso # Seg Neutrophils % Seg Neuts % (Manual) Lymphocytes % (Manual) Monocytes % (Manual) Eosinophils % (Manual) Basophils % (Manual) Nucleated RBC % Seg Neutrophils # Seg Neutrophils # Man Lymphocytes # (Manual) Monocytes # (Manual) Eosinophils # (Manual) Basophils # (Manual) PT INR Fibrinogen dRVVT Confirm Interp Factor V Activity POC ABG pH POC ABG pCO2 POC ABG pO2 ABG pO2 ABG HCO3 ABG Base Excess ABG Hemoglobin Oxyhemoglobin Sodium Potassium Chloride 97.9 L Carbon Dioxide BUN 75 H Creatinine 1.6 H Glucose 122 H POC Glucose 149 H 163 H Lactic Acid Calcium Phosphorus 5.20 H Magnesium Direct Bilirubin AST ALT Alkaline Phosphatase Lactate Dehydrogenase Troponin T C-Reactive Protein Total Protein Albumin Prealbumin Triglycerides Cholesterol LDL Cholesterol Direct HDL Cholesterol Urine pH Urine WBC (Auto) Urine Creatinine Urine Total Protein Fluid Total Protein Vancomycin Trough Rheumatoid Factor Complement C4 Miscellaneous Test Crossmatch 12/15/16 12/15/16 12/15/16 05:50 11:24 17:01 WBC RBC Hgb Hct MCV MCH MCHC RDW Plt Count Lymph % (Auto) [place] % (Auto) Lymph # [place] # Baso # Seg Neutrophils % Seg Neuts % (Manual) Lymphocytes % (Manual) Monocytes % (Manual) Eosinophils % (Manual) Basophils % (Manual) Nucleated RBC % Seg Neutrophils # Seg Neutrophils # Man Lymphocytes # (Manual) Monocytes # (Manual) Eosinophils # (Manual) Basophils # (Manual) PT INR Fibrinogen dRVVT Confirm Interp Factor V Activity POC ABG pH POC ABG pCO2 POC ABG pO2 ABG pO2 ABG HCO3 ABG Base Excess ABG Hemoglobin Oxyhemoglobin Sodium Potassium Chloride Carbon Dioxide BUN Creatinine Glucose POC Glucose 150 H 146 H 167 H Lactic Acid Calcium Phosphorus Magnesium Direct Bilirubin AST ALT Alkaline Phosphatase Lactate Dehydrogenase Troponin T C-Reactive Protein Total Protein Albumin Prealbumin Triglycerides Cholesterol LDL Cholesterol Direct HDL Cholesterol Urine pH Urine WBC (Auto) Urine Creatinine Urine Total Protein Fluid Total Protein Vancomycin Trough Rheumatoid Factor Complement C4 Miscellaneous Test Crossmatch 12/15/16 12/16/16 12/16/16 23:34 05:25 11:24 WBC RBC Hgb Hct MCV MCH MCHC RDW Plt Count Lymph % (Auto) [place] % (Auto) Lymph # [place] # Baso # Seg Neutrophils % Seg Neuts % (Manual) Lymphocytes % (Manual) Monocytes % (Manual) Eosinophils % (Manual) Basophils % (Manual) Nucleated RBC % Seg Neutrophils # Seg Neutrophils # Man Lymphocytes # (Manual) Monocytes # (Manual) Eosinophils # (Manual) Basophils # (Manual) PT INR Fibrinogen dRVVT Confirm Interp Factor V Activity POC ABG pH POC ABG pCO2 POC ABG pO2 ABG pO2 ABG HCO3 ABG Base Excess ABG Hemoglobin Oxyhemoglobin Sodium Potassium Chloride Carbon Dioxide BUN Creatinine Glucose POC Glucose 127 H 139 H 165 H Lactic Acid Calcium Phosphorus Magnesium Direct Bilirubin AST ALT Alkaline Phosphatase Lactate Dehydrogenase Troponin T C-Reactive Protein Total Protein Albumin Prealbumin Triglycerides Cholesterol LDL Cholesterol Direct HDL Cholesterol Urine pH Urine WBC (Auto) Urine Creatinine Urine Total Protein Fluid Total Protein Vancomycin Trough Rheumatoid Factor Complement C4 Miscellaneous Test Crossmatch 12/16/16 12/16/16 12/16/16 15:30 16:25 17:31 WBC 17.8 H RBC 2.38 L Hgb 6.4 L Hct 20.3 L MCV MCH 27 L MCHC RDW 17.4 H Plt Count Lymph % (Auto) [place] % (Auto) Lymph # [place] # Baso # Seg Neutrophils % Seg Neuts % (Manual) Lymphocytes % (Manual) Monocytes % (Manual) 10.0 H Eosinophils % (Manual) Basophils % (Manual) Nucleated RBC % Seg Neutrophils # Seg Neutrophils # Man 8.5 H Lymphocytes # (Manual) Monocytes # (Manual) 1.8 H Eosinophils # (Manual) Basophils # (Manual) PT INR Fibrinogen dRVVT Confirm Interp Factor V Activity POC ABG pH POC ABG pCO2 POC ABG pO2 ABG pO2 ABG HCO3 ABG Base Excess ABG Hemoglobin Oxyhemoglobin Sodium Potassium Chloride Carbon Dioxide BUN Creatinine Glucose POC Glucose 176 H Lactic Acid Calcium Phosphorus Magnesium Direct Bilirubin AST ALT Alkaline Phosphatase Lactate Dehydrogenase Troponin T C-Reactive Protein Total Protein Albumin Prealbumin Triglycerides Cholesterol LDL Cholesterol Direct HDL Cholesterol Urine pH Urine WBC (Auto) Urine Creatinine Urine Total Protein Fluid Total Protein Vancomycin Trough Rheumatoid Factor Complement C4 Miscellaneous Test Crossmatch See Detail 12/17/16 12/17/16 12/17/16 00:14 04:00 05:00 WBC 20.0 H RBC 2.99 L Hgb 8.5 L Hct 25.7 L MCV MCH MCHC RDW 17.2 H Plt Count Lymph % (Auto) [place] % (Auto) Lymph # [place] # Baso # Seg Neutrophils % Seg Neuts % (Manual) Lymphocytes % (Manual) Monocytes % (Manual) Eosinophils % (Manual) Basophils % (Manual) Nucleated RBC % Seg Neutrophils # Seg Neutrophils # Man Lymphocytes # (Manual) Monocytes # (Manual) Eosinophils # (Manual) Basophils # (Manual) PT INR Fibrinogen dRVVT Confirm Interp Factor V Activity POC ABG pH POC ABG pCO2 POC ABG pO2 ABG pO2 ABG HCO3 ABG Base Excess ABG Hemoglobin Oxyhemoglobin Sodium Potassium Chloride 97.7 L Carbon Dioxide BUN 73 H Creatinine 1.7 H Glucose 136 H POC Glucose 148 H Lactic Acid Calcium Phosphorus 2.20 L Magnesium 2.70 H Direct Bilirubin AST ALT Alkaline Phosphatase Lactate Dehydrogenase Troponin T C-Reactive Protein Total Protein Albumin Prealbumin Triglycerides Cholesterol LDL Cholesterol Direct HDL Cholesterol Urine pH Urine WBC (Auto) Urine Creatinine Urine Total Protein Fluid Total Protein Vancomycin Trough Rheumatoid Factor Complement C4 Miscellaneous Test Crossmatch 12/17/16 12/17/16 12/17/16 05:39 12:50 16:32 WBC RBC Hgb Hct MCV MCH MCHC RDW Plt Count Lymph % (Auto) [place] % (Auto) Lymph # [place] # Baso # Seg Neutrophils % Seg Neuts % (Manual) Lymphocytes % (Manual) Monocytes % (Manual) Eosinophils % (Manual) Basophils % (Manual) Nucleated RBC % Seg Neutrophils # Seg Neutrophils # Man Lymphocytes # (Manual) Monocytes # (Manual) Eosinophils # (Manual) Basophils # (Manual) PT INR Fibrinogen dRVVT Confirm Interp Factor V Activity POC ABG pH POC ABG pCO2 POC ABG pO2 ABG pO2 ABG HCO3 ABG Base Excess ABG Hemoglobin Oxyhemoglobin Sodium Potassium Chloride Carbon Dioxide BUN Creatinine Glucose POC Glucose 162 H 146 H 169 H Lactic Acid Calcium Phosphorus Magnesium Direct Bilirubin AST ALT Alkaline Phosphatase Lactate Dehydrogenase Troponin T C-Reactive Protein Total Protein Albumin Prealbumin Triglycerides Cholesterol LDL Cholesterol Direct HDL Cholesterol Urine pH Urine WBC (Auto) Urine Creatinine Urine Total Protein Fluid Total Protein Vancomycin Trough Rheumatoid Factor Complement C4 Miscellaneous Test Crossmatch 12/17/16 12/18/16 12/18/16 23:57 05:00 05:32 WBC RBC Hgb Hct MCV MCH MCHC RDW Plt Count Lymph % (Auto) [place] % (Auto) Lymph # [place] # Baso # Seg Neutrophils % Seg Neuts % (Manual) Lymphocytes % (Manual) Monocytes % (Manual) Eosinophils % (Manual) Basophils % (Manual) Nucleated RBC % Seg Neutrophils # Seg Neutrophils # Man Lymphocytes # (Manual) Monocytes # (Manual) Eosinophils # (Manual) Basophils # (Manual) PT INR Fibrinogen dRVVT Confirm Interp Factor V Activity POC ABG pH POC ABG pCO2 POC ABG pO2 ABG pO2 ABG HCO3 ABG Base Excess ABG Hemoglobin Oxyhemoglobin Sodium Potassium Chloride 97.0 L Carbon Dioxide BUN 63 H Creatinine 1.4 H Glucose 174 H POC Glucose 145 H 201 H Lactic Acid Calcium Phosphorus 1.70 L D Magnesium Direct Bilirubin AST ALT Alkaline Phosphatase 257 H Lactate Dehydrogenase Troponin T C-Reactive Protein Total Protein 5.9 L Albumin 1.8 L Prealbumin Triglycerides Cholesterol LDL Cholesterol Direct HDL Cholesterol Urine pH Urine WBC (Auto) Urine Creatinine Urine Total Protein Fluid Total Protein Vancomycin Trough Rheumatoid Factor Complement C4 Miscellaneous Test Crossmatch 12/18/16 12/18/16 12/18/16 11:43 16:52 23:52 WBC RBC Hgb Hct MCV MCH MCHC RDW Plt Count Lymph % (Auto) [place] % (Auto) Lymph # [place] # Baso # Seg Neutrophils % Seg Neuts % (Manual) Lymphocytes % (Manual) Monocytes % (Manual) Eosinophils % (Manual) Basophils % (Manual) Nucleated RBC % Seg Neutrophils # Seg Neutrophils # Man Lymphocytes # (Manual) Monocytes # (Manual) Eosinophils # (Manual) Basophils # (Manual) PT INR Fibrinogen dRVVT Confirm Interp Factor V Activity POC ABG pH POC ABG pCO2 POC ABG pO2 ABG pO2 ABG HCO3 ABG Base Excess ABG Hemoglobin Oxyhemoglobin Sodium Potassium Chloride Carbon Dioxide BUN Creatinine Glucose POC Glucose 177 H 110 H 162 H Lactic Acid Calcium Phosphorus Magnesium Direct Bilirubin AST ALT Alkaline Phosphatase Lactate Dehydrogenase Troponin T C-Reactive Protein Total Protein Albumin Prealbumin Triglycerides Cholesterol LDL Cholesterol Direct HDL Cholesterol Urine pH Urine WBC (Auto) Urine Creatinine Urine Total Protein Fluid Total Protein Vancomycin Trough Rheumatoid Factor Complement C4 Miscellaneous Test Crossmatch 12/19/16 12/19/16 12/19/16 05:02 05:24 09:30 WBC 20.1 H RBC 2.73 L Hgb 7.6 L Hct 23.6 L MCV MCH MCHC RDW 17.6 H Plt Count Lymph % (Auto) [place] % (Auto) Lymph # [place] # Baso # Seg Neutrophils % Seg Neuts % (Manual) Lymphocytes % (Manual) 13.0 L Monocytes % (Manual) Eosinophils % (Manual) Basophils % (Manual) Nucleated RBC % 1.0 H Seg Neutrophils # Seg Neutrophils # Man 12.9 H Lymphocytes # (Manual) Monocytes # (Manual) 1.4 H Eosinophils # (Manual) Basophils # (Manual) 0.2 H PT INR Fibrinogen dRVVT Confirm Interp Factor V Activity POC ABG pH POC ABG pCO2 POC ABG pO2 ABG pO2 ABG HCO3 ABG Base Excess ABG Hemoglobin Oxyhemoglobin Sodium Potassium Chloride 97.8 L Carbon Dioxide BUN 84 H Creatinine 1.6 H Glucose 133 H POC Glucose 134 H Lactic Acid Calcium Phosphorus Magnesium Direct Bilirubin AST ALT Alkaline Phosphatase Lactate Dehydrogenase Troponin T C-Reactive Protein Total Protein Albumin Prealbumin Triglycerides Cholesterol LDL Cholesterol Direct HDL Cholesterol Urine pH Urine WBC (Auto) Urine Creatinine Urine Total Protein Fluid Total Protein Vancomycin Trough Rheumatoid Factor Complement C4 Miscellaneous Test Crossmatch 12/19/16 12/19/16 12/19/16 09:36 11:12 18:29 WBC RBC Hgb Hct MCV MCH MCHC RDW Plt Count Lymph % (Auto) [place] % (Auto) Lymph # [place] # Baso # Seg Neutrophils % Seg Neuts % (Manual) Lymphocytes % (Manual) Monocytes % (Manual) Eosinophils % (Manual) Basophils % (Manual) Nucleated RBC % Seg Neutrophils # Seg Neutrophils # Man Lymphocytes # (Manual) Monocytes # (Manual) Eosinophils # (Manual) Basophils # (Manual) PT INR Fibrinogen dRVVT Confirm Interp Factor V Activity POC ABG pH 7.503 H POC ABG pCO2 30.1 L POC ABG pO2 ABG pO2 ABG HCO3 ABG Base Excess ABG Hemoglobin Oxyhemoglobin Sodium Potassium Chloride Carbon Dioxide BUN Creatinine Glucose POC Glucose 138 H 156 H Lactic Acid Calcium Phosphorus Magnesium Direct Bilirubin AST ALT Alkaline Phosphatase Lactate Dehydrogenase Troponin T C-Reactive Protein Total Protein Albumin Prealbumin Triglycerides Cholesterol LDL Cholesterol Direct HDL Cholesterol Urine pH Urine WBC (Auto) Urine Creatinine Urine Total Protein Fluid Total Protein Vancomycin Trough Rheumatoid Factor Complement C4 Miscellaneous Test Crossmatch 12/20/16 12/20/16 12/20/16 00:03 06:17 07:07 WBC RBC Hgb Hct MCV MCH MCHC RDW Plt Count Lymph % (Auto) [place] % (Auto) Lymph # [place] # Baso # Seg Neutrophils % Seg Neuts % (Manual) Lymphocytes % (Manual) Monocytes % (Manual) Eosinophils % (Manual) Basophils % (Manual) Nucleated RBC % Seg Neutrophils # Seg Neutrophils # Man Lymphocytes # (Manual) Monocytes # (Manual) Eosinophils # (Manual) Basophils # (Manual) PT INR Fibrinogen dRVVT Confirm Interp Factor V Activity POC ABG pH POC ABG pCO2 POC ABG pO2 ABG pO2 ABG HCO3 ABG Base Excess ABG Hemoglobin Oxyhemoglobin Sodium Potassium Chloride 97.1 L Carbon Dioxide 20 L BUN 97 H Creatinine 1.8 H Glucose 153 H POC Glucose 152 H 175 H Lactic Acid Calcium Phosphorus Magnesium Direct Bilirubin AST ALT Alkaline Phosphatase Lactate Dehydrogenase Troponin T C-Reactive Protein Total Protein Albumin Prealbumin Triglycerides Cholesterol LDL Cholesterol Direct HDL Cholesterol Urine pH Urine WBC (Auto) Urine Creatinine Urine Total Protein Fluid Total Protein Vancomycin Trough Rheumatoid Factor Complement C4 Miscellaneous Test Crossmatch 12/20/16 12/20/16 12/20/16 12:00 17:42 23:53 WBC RBC Hgb Hct MCV MCH MCHC RDW Plt Count Lymph % (Auto) [place] % (Auto) Lymph # [place] # Baso # Seg Neutrophils % Seg Neuts % (Manual) Lymphocytes % (Manual) Monocytes % (Manual) Eosinophils % (Manual) Basophils % (Manual) Nucleated RBC % Seg Neutrophils # Seg Neutrophils # Man Lymphocytes # (Manual) Monocytes # (Manual) Eosinophils # (Manual) Basophils # (Manual) PT INR Fibrinogen dRVVT Confirm Interp Factor V Activity POC ABG pH POC ABG pCO2 POC ABG pO2 ABG pO2 ABG HCO3 ABG Base Excess ABG Hemoglobin Oxyhemoglobin Sodium Potassium Chloride Carbon Dioxide BUN Creatinine Glucose POC Glucose 141 H 156 H 132 H Lactic Acid Calcium Phosphorus Magnesium Direct Bilirubin AST ALT Alkaline Phosphatase Lactate Dehydrogenase Troponin T C-Reactive Protein Total Protein Albumin Prealbumin Triglycerides Cholesterol LDL Cholesterol Direct HDL Cholesterol Urine pH Urine WBC (Auto) Urine Creatinine Urine Total Protein Fluid Total Protein Vancomycin Trough Rheumatoid Factor Complement C4 Miscellaneous Test Crossmatch 12/21/16 12/21/16 12/21/16 05:49 08:50 12:19 WBC RBC Hgb Hct MCV MCH MCHC RDW Plt Count Lymph % (Auto) [place] % (Auto) Lymph # [place] # Baso # Seg Neutrophils % Seg Neuts % (Manual) Lymphocytes % (Manual) Monocytes % (Manual) Eosinophils % (Manual) Basophils % (Manual) Nucleated RBC % Seg Neutrophils # Seg Neutrophils # Man Lymphocytes # (Manual) Monocytes # (Manual) Eosinophils # (Manual) Basophils # (Manual) PT INR Fibrinogen dRVVT Confirm Interp Factor V Activity POC ABG pH POC ABG pCO2 POC ABG pO2 ABG pO2 ABG HCO3 ABG Base Excess ABG Hemoglobin Oxyhemoglobin Sodium Potassium 5.2 H D Chloride Carbon Dioxide BUN 63 H Creatinine Glucose 122 H POC Glucose 132 H 136 H Lactic Acid Calcium 8.3 L Phosphorus Magnesium Direct Bilirubin AST ALT Alkaline Phosphatase Lactate Dehydrogenase Troponin T C-Reactive Protein Total Protein Albumin Prealbumin Triglycerides Cholesterol LDL Cholesterol Direct HDL Cholesterol Urine pH Urine WBC (Auto) Urine Creatinine Urine Total Protein Fluid Total Protein Vancomycin Trough Rheumatoid Factor Complement C4 Miscellaneous Test Crossmatch 12/21/16 12/21/16 12/22/16 17:22 23:58 05:49 WBC RBC Hgb Hct MCV MCH MCHC RDW Plt Count Lymph % (Auto) [place] % (Auto) Lymph # [place] # Baso # Seg Neutrophils % Seg Neuts % (Manual) Lymphocytes % (Manual) Monocytes % (Manual) Eosinophils % (Manual) Basophils % (Manual) Nucleated RBC % Seg Neutrophils # Seg Neutrophils # Man Lymphocytes # (Manual) Monocytes # (Manual) Eosinophils # (Manual) Basophils # (Manual) PT INR Fibrinogen dRVVT Confirm Interp Factor V Activity POC ABG pH POC ABG pCO2 POC ABG pO2 ABG pO2 ABG HCO3 ABG Base Excess ABG Hemoglobin Oxyhemoglobin Sodium Potassium Chloride Carbon Dioxide BUN Creatinine Glucose POC Glucose 135 H 149 H 140 H Lactic Acid Calcium Phosphorus Magnesium Direct Bilirubin AST ALT Alkaline Phosphatase Lactate Dehydrogenase Troponin T C-Reactive Protein Total Protein Albumin Prealbumin Triglycerides Cholesterol LDL Cholesterol Direct HDL Cholesterol Urine pH Urine WBC (Auto) Urine Creatinine Urine Total Protein Fluid Total Protein Vancomycin Trough Rheumatoid Factor Complement C4 Miscellaneous Test Crossmatch 12/22/16 12/22/16 12/22/16 06:10 11:17 17:31 WBC RBC Hgb Hct MCV MCH MCHC RDW Plt Count Lymph % (Auto) [place] % (Auto) Lymph # [place] # Baso # Seg Neutrophils % Seg Neuts % (Manual) Lymphocytes % (Manual) Monocytes % (Manual) Eosinophils % (Manual) Basophils % (Manual) Nucleated RBC % Seg Neutrophils # Seg Neutrophils # Man Lymphocytes # (Manual) Monocytes # (Manual) Eosinophils # (Manual) Basophils # (Manual) PT INR Fibrinogen dRVVT Confirm Interp Factor V Activity POC ABG pH POC ABG pCO2 POC ABG pO2 ABG pO2 ABG HCO3 ABG Base Excess ABG Hemoglobin Oxyhemoglobin Sodium Potassium Chloride Carbon Dioxide BUN 76 H Creatinine 1.5 H Glucose 241 H POC Glucose 193 H 148 H Lactic Acid Calcium Phosphorus Magnesium Direct Bilirubin AST ALT Alkaline Phosphatase Lactate Dehydrogenase Troponin T C-Reactive Protein Total Protein Albumin Prealbumin Triglycerides Cholesterol LDL Cholesterol Direct HDL Cholesterol Urine pH Urine WBC (Auto) Urine Creatinine Urine Total Protein Fluid Total Protein Vancomycin Trough Rheumatoid Factor Complement C4 Miscellaneous Test Crossmatch 12/22/16 12/23/16 12/23/16 23:58 05:00 05:26 WBC RBC Hgb Hct MCV MCH MCHC RDW Plt Count Lymph % (Auto) [place] % (Auto) Lymph # [place] # Baso # Seg Neutrophils % Seg Neuts % (Manual) Lymphocytes % (Manual) Monocytes % (Manual) Eosinophils % (Manual) Basophils % (Manual) Nucleated RBC % Seg Neutrophils # Seg Neutrophils # Man Lymphocytes # (Manual) Monocytes # (Manual) Eosinophils # (Manual) Basophils # (Manual) PT INR Fibrinogen dRVVT Confirm Interp Factor V Activity POC ABG pH POC ABG pCO2 POC ABG pO2 ABG pO2 ABG HCO3 ABG Base Excess ABG Hemoglobin Oxyhemoglobin Sodium Potassium Chloride Carbon Dioxide BUN 49 H Creatinine Glucose 143 H POC Glucose 165 H 154 H Lactic Acid Calcium 8.2 L Phosphorus Magnesium 1.60 L Direct Bilirubin AST ALT Alkaline Phosphatase Lactate Dehydrogenase Troponin T C-Reactive Protein Total Protein Albumin Prealbumin Triglycerides Cholesterol LDL Cholesterol Direct HDL Cholesterol Urine pH Urine WBC (Auto) Urine Creatinine Urine Total Protein Fluid Total Protein Vancomycin Trough Rheumatoid Factor Complement C4 Miscellaneous Test Crossmatch 12/23/16 12/23/16 12/24/16 12:35 17:01 00:01 WBC RBC Hgb Hct MCV MCH MCHC RDW Plt Count Lymph % (Auto) [place] % (Auto) Lymph # [place] # Baso # Seg Neutrophils % Seg Neuts % (Manual) Lymphocytes % (Manual) Monocytes % (Manual) Eosinophils % (Manual) Basophils % (Manual) Nucleated RBC % Seg Neutrophils # Seg Neutrophils # Man Lymphocytes # (Manual) Monocytes # (Manual) Eosinophils # (Manual) Basophils # (Manual) PT INR Fibrinogen dRVVT Confirm Interp Factor V Activity POC ABG pH POC ABG pCO2 POC ABG pO2 ABG pO2 ABG HCO3 ABG Base Excess ABG Hemoglobin Oxyhemoglobin Sodium Potassium Chloride Carbon Dioxide BUN Creatinine Glucose POC Glucose 164 H 149 H 135 H Lactic Acid Calcium Phosphorus Magnesium Direct Bilirubin AST ALT Alkaline Phosphatase Lactate Dehydrogenase Troponin T C-Reactive Protein Total Protein Albumin Prealbumin Triglycerides Cholesterol LDL Cholesterol Direct HDL Cholesterol Urine pH Urine WBC (Auto) Urine Creatinine Urine Total Protein Fluid Total Protein Vancomycin Trough Rheumatoid Factor Complement C4 Miscellaneous Test Crossmatch 12/24/16 12/24/16 12/24/16 05:41 07:01 11:38 WBC RBC Hgb Hct MCV MCH MCHC RDW Plt Count Lymph % (Auto) [place] % (Auto) Lymph # [place] # Baso # Seg Neutrophils % Seg Neuts % (Manual) Lymphocytes % (Manual) Monocytes % (Manual) Eosinophils % (Manual) Basophils % (Manual) Nucleated RBC % Seg Neutrophils # Seg Neutrophils # Man Lymphocytes # (Manual) Monocytes # (Manual) Eosinophils # (Manual) Basophils # (Manual) PT INR Fibrinogen dRVVT Confirm Interp Factor V Activity POC ABG pH POC ABG pCO2 POC ABG pO2 ABG pO2 ABG HCO3 ABG Base Excess ABG Hemoglobin Oxyhemoglobin Sodium Potassium Chloride Carbon Dioxide BUN 72 H Creatinine 1.3 H Glucose 130 H POC Glucose 132 H 156 H Lactic Acid Calcium 8.2 L Phosphorus Magnesium Direct Bilirubin AST ALT Alkaline Phosphatase Lactate Dehydrogenase Troponin T C-Reactive Protein Total Protein Albumin Prealbumin Triglycerides Cholesterol LDL Cholesterol Direct HDL Cholesterol Urine pH Urine WBC (Auto) Urine Creatinine Urine Total Protein Fluid Total Protein Vancomycin Trough Rheumatoid Factor Complement C4 Miscellaneous Test Crossmatch 12/24/16 12/25/16 12/25/16 17:53 00:23 05:45 WBC RBC Hgb Hct MCV MCH MCHC RDW Plt Count Lymph % (Auto) [place] % (Auto) Lymph # [place] # Baso # Seg Neutrophils % Seg Neuts % (Manual) Lymphocytes % (Manual) Monocytes % (Manual) Eosinophils % (Manual) Basophils % (Manual) Nucleated RBC % Seg Neutrophils # Seg Neutrophils # Man Lymphocytes # (Manual) Monocytes # (Manual) Eosinophils # (Manual) Basophils # (Manual) PT INR Fibrinogen dRVVT Confirm Interp Factor V Activity POC ABG pH POC ABG pCO2 POC ABG pO2 ABG pO2 ABG HCO3 ABG Base Excess ABG Hemoglobin Oxyhemoglobin Sodium 146 H Potassium Chloride Carbon Dioxide BUN 51 H Creatinine Glucose 109 H POC Glucose 169 H 117 H Lactic Acid Calcium Phosphorus Magnesium Direct Bilirubin AST ALT Alkaline Phosphatase Lactate Dehydrogenase Troponin T C-Reactive Protein Total Protein Albumin Prealbumin Triglycerides Cholesterol LDL Cholesterol Direct HDL Cholesterol Urine pH Urine WBC (Auto) Urine Creatinine Urine Total Protein Fluid Total Protein Vancomycin Trough Rheumatoid Factor Complement C4 Miscellaneous Test Crossmatch 12/25/16 12/25/16 12/25/16 06:43 11:29 17:14 WBC RBC Hgb Hct MCV MCH MCHC RDW Plt Count Lymph % (Auto) [place] % (Auto) Lymph # [place] # Baso # Seg Neutrophils % Seg Neuts % (Manual) Lymphocytes % (Manual) Monocytes % (Manual) Eosinophils % (Manual) Basophils % (Manual) Nucleated RBC % Seg Neutrophils # Seg Neutrophils # Man Lymphocytes # (Manual) Monocytes # (Manual) Eosinophils # (Manual) Basophils # (Manual) PT INR Fibrinogen dRVVT Confirm Interp Factor V Activity POC ABG pH POC ABG pCO2 POC ABG pO2 ABG pO2 ABG HCO3 ABG Base Excess ABG Hemoglobin Oxyhemoglobin Sodium Potassium Chloride Carbon Dioxide BUN Creatinine Glucose POC Glucose 117 H 128 H 120 H Lactic Acid Calcium Phosphorus Magnesium Direct Bilirubin AST ALT Alkaline Phosphatase Lactate Dehydrogenase Troponin T C-Reactive Protein Total Protein Albumin Prealbumin Triglycerides Cholesterol LDL Cholesterol Direct HDL Cholesterol Urine pH Urine WBC (Auto) Urine Creatinine Urine Total Protein Fluid Total Protein Vancomycin Trough Rheumatoid Factor Complement C4 Miscellaneous Test Crossmatch 12/25/16 12/26/16 12/26/16 23:54 05:40 05:50 WBC 16.2 H RBC 2.32 L Hgb 6.2 L Hct 20.1 L MCV MCH 27 L MCHC RDW 18.6 H Plt Count Lymph % (Auto) [place] % (Auto) Lymph # [place] # Baso # Seg Neutrophils % Seg Neuts % (Manual) Lymphocytes % (Manual) Monocytes % (Manual) Eosinophils % (Manual) Basophils % (Manual) Nucleated RBC % Seg Neutrophils # Seg Neutrophils # Man Lymphocytes # (Manual) Monocytes # (Manual) Eosinophils # (Manual) Basophils # (Manual) PT INR Fibrinogen dRVVT Confirm Interp Factor V Activity POC ABG pH POC ABG pCO2 POC ABG pO2 ABG pO2 ABG HCO3 ABG Base Excess ABG Hemoglobin Oxyhemoglobin Sodium Potassium Chloride Carbon Dioxide BUN Creatinine Glucose POC Glucose 126 H 132 H Lactic Acid Calcium Phosphorus Magnesium Direct Bilirubin AST ALT Alkaline Phosphatase Lactate Dehydrogenase Troponin T C-Reactive Protein Total Protein Albumin Prealbumin Triglycerides Cholesterol LDL Cholesterol Direct HDL Cholesterol Urine pH Urine WBC (Auto) Urine Creatinine Urine Total Protein Fluid Total Protein Vancomycin Trough Rheumatoid Factor Complement C4 Miscellaneous Test Crossmatch 12/26/16 12/26/16 12/26/16 05:50 12:17 12:33 WBC RBC Hgb Hct MCV MCH MCHC RDW Plt Count Lymph % (Auto) [place] % (Auto) Lymph # [place] # Baso # Seg Neutrophils % Seg Neuts % (Manual) Lymphocytes % (Manual) Monocytes % (Manual) Eosinophils % (Manual) Basophils % (Manual) Nucleated RBC % Seg Neutrophils # Seg Neutrophils # Man Lymphocytes # (Manual) Monocytes # (Manual) Eosinophils # (Manual) Basophils # (Manual) PT INR Fibrinogen dRVVT Confirm Interp Factor V Activity POC ABG pH POC ABG pCO2 POC ABG pO2 ABG pO2 ABG HCO3 ABG Base Excess ABG Hemoglobin Oxyhemoglobin Sodium Potassium Chloride Carbon Dioxide BUN 73 H Creatinine 1.3 H Glucose 113 H POC Glucose 117 H Lactic Acid Calcium Phosphorus Magnesium Direct Bilirubin AST ALT Alkaline Phosphatase Lactate Dehydrogenase Troponin T C-Reactive Protein Total Protein Albumin Prealbumin Triglycerides Cholesterol LDL Cholesterol Direct HDL Cholesterol Urine pH Urine WBC (Auto) Urine Creatinine Urine Total Protein Fluid Total Protein Vancomycin Trough Rheumatoid Factor Complement C4 Miscellaneous Test Crossmatch See Detail 12/26/16 12/26/16 12/27/16 20:00 23:21 05:00 WBC RBC Hgb 8.4 L Hct 26.3 L D MCV MCH MCHC RDW Plt Count Lymph % (Auto) [place] % (Auto) Lymph # [place] # Baso # Seg Neutrophils % Seg Neuts % (Manual) Lymphocytes % (Manual) Monocytes % (Manual) Eosinophils % (Manual) Basophils % (Manual) Nucleated RBC % Seg Neutrophils # Seg Neutrophils # Man Lymphocytes # (Manual) Monocytes # (Manual) Eosinophils # (Manual) Basophils # (Manual) PT INR Fibrinogen dRVVT Confirm Interp Factor V Activity POC ABG pH POC ABG pCO2 POC ABG pO2 ABG pO2 ABG HCO3 ABG Base Excess ABG Hemoglobin Oxyhemoglobin Sodium Potassium Chloride Carbon Dioxide BUN 85 H Creatinine 1.6 H Glucose 118 H POC Glucose 124 H Lactic Acid Calcium Phosphorus 4.80 H Magnesium Direct Bilirubin AST ALT Alkaline Phosphatase Lactate Dehydrogenase Troponin T C-Reactive Protein Total Protein Albumin Prealbumin Triglycerides Cholesterol LDL Cholesterol Direct HDL Cholesterol Urine pH Urine WBC (Auto) Urine Creatinine Urine Total Protein Fluid Total Protein Vancomycin Trough Rheumatoid Factor Complement C4 Miscellaneous Test Crossmatch 12/27/16 12/27/16 12/27/16 05:00 05:35 12:24 WBC RBC Hgb 7.6 L Hct 22.8 L MCV MCH MCHC RDW Plt Count Lymph % (Auto) [place] % (Auto) Lymph # [place] # Baso # Seg Neutrophils % Seg Neuts % (Manual) Lymphocytes % (Manual) Monocytes % (Manual) Eosinophils % (Manual) Basophils % (Manual) Nucleated RBC % Seg Neutrophils # Seg Neutrophils # Man Lymphocytes # (Manual) Monocytes # (Manual) Eosinophils # (Manual) Basophils # (Manual) PT INR Fibrinogen dRVVT Confirm Interp Factor V Activity POC ABG pH POC ABG pCO2 POC ABG pO2 ABG pO2 ABG HCO3 ABG Base Excess ABG Hemoglobin Oxyhemoglobin Sodium Potassium Chloride Carbon Dioxide BUN Creatinine Glucose POC Glucose 115 H 131 H Lactic Acid Calcium Phosphorus Magnesium Direct Bilirubin AST ALT Alkaline Phosphatase Lactate Dehydrogenase Troponin T C-Reactive Protein Total Protein Albumin Prealbumin Triglycerides Cholesterol LDL Cholesterol Direct HDL Cholesterol Urine pH Urine WBC (Auto) Urine Creatinine Urine Total Protein Fluid Total Protein Vancomycin Trough Rheumatoid Factor Complement C4 Miscellaneous Test Crossmatch 12/27/16 12/28/16 12/28/16 17:16 00:18 04:00 WBC RBC Hgb Hct MCV MCH MCHC RDW Plt Count Lymph % (Auto) [place] % (Auto) Lymph # [place] # Baso # Seg Neutrophils % Seg Neuts % (Manual) Lymphocytes % (Manual) Monocytes % (Manual) Eosinophils % (Manual) Basophils % (Manual) Nucleated RBC % Seg Neutrophils # Seg Neutrophils # Man Lymphocytes # (Manual) Monocytes # (Manual) Eosinophils # (Manual) Basophils # (Manual) PT INR Fibrinogen dRVVT Confirm Interp Factor V Activity POC ABG pH POC ABG pCO2 POC ABG pO2 ABG pO2 ABG HCO3 ABG Base Excess ABG Hemoglobin Oxyhemoglobin Sodium Potassium 3.5 L Chloride Carbon Dioxide BUN 57 H Creatinine Glucose 118 H POC Glucose 136 H 120 H Lactic Acid Calcium 8.3 L Phosphorus Magnesium Direct Bilirubin AST ALT Alkaline Phosphatase Lactate Dehydrogenase Troponin T C-Reactive Protein Total Protein Albumin Prealbumin Triglycerides Cholesterol LDL Cholesterol Direct HDL Cholesterol Urine pH Urine WBC (Auto) Urine Creatinine Urine Total Protein Fluid Total Protein Vancomycin Trough Rheumatoid Factor Complement C4 Miscellaneous Test Crossmatch 12/28/16 12/28/16 12/28/16 04:00 05:11 08:30 WBC 17.0 H RBC 2.58 L Hgb 7.1 L Hct 22.0 L MCV MCH MCHC RDW 17.6 H Plt Count Lymph % (Auto) 12.2 L [place] % (Auto) Lymph # [place] # 1.1 H Baso # Seg Neutrophils % 80.5 H Seg Neuts % (Manual) Lymphocytes % (Manual) Monocytes % (Manual) Eosinophils % (Manual) Basophils % (Manual) Nucleated RBC % Seg Neutrophils # 13.7 H Seg Neutrophils # Man Lymphocytes # (Manual) Monocytes # (Manual) Eosinophils # (Manual) Basophils # (Manual) PT 16.1 H INR 1.23 H Fibrinogen dRVVT Confirm Interp Factor V Activity POC ABG pH POC ABG pCO2 POC ABG pO2 ABG pO2 ABG HCO3 ABG Base Excess ABG Hemoglobin Oxyhemoglobin Sodium Potassium Chloride Carbon Dioxide BUN Creatinine Glucose POC Glucose 122 H Lactic Acid Calcium Phosphorus Magnesium Direct Bilirubin AST ALT Alkaline Phosphatase Lactate Dehydrogenase Troponin T C-Reactive Protein Total Protein Albumin Prealbumin Triglycerides Cholesterol LDL Cholesterol Direct HDL Cholesterol Urine pH Urine WBC (Auto) Urine Creatinine Urine Total Protein Fluid Total Protein Vancomycin Trough Rheumatoid Factor Complement C4 Miscellaneous Test Crossmatch 12/28/16 12/28/16 12/28/16 12:27 16:32 23:46 WBC RBC Hgb Hct MCV MCH MCHC RDW Plt Count Lymph % (Auto) [place] % (Auto) Lymph # [place] # Baso # Seg Neutrophils % Seg Neuts % (Manual) Lymphocytes % (Manual) Monocytes % (Manual) Eosinophils % (Manual) Basophils % (Manual) Nucleated RBC % Seg Neutrophils # Seg Neutrophils # Man Lymphocytes # (Manual) Monocytes # (Manual) Eosinophils # (Manual) Basophils # (Manual) PT INR Fibrinogen dRVVT Confirm Interp Factor V Activity POC ABG pH POC ABG pCO2 POC ABG pO2 ABG pO2 ABG HCO3 ABG Base Excess ABG Hemoglobin Oxyhemoglobin Sodium Potassium Chloride Carbon Dioxide BUN Creatinine Glucose POC Glucose 127 H 117 H 108 H Lactic Acid Calcium Phosphorus Magnesium Direct Bilirubin AST ALT Alkaline Phosphatase Lactate Dehydrogenase Troponin T C-Reactive Protein Total Protein Albumin Prealbumin Triglycerides Cholesterol LDL Cholesterol Direct HDL Cholesterol Urine pH Urine WBC (Auto) Urine Creatinine Urine Total Protein Fluid Total Protein Vancomycin Trough Rheumatoid Factor Complement C4 Miscellaneous Test Crossmatch 12/29/16 12/29/16 12/29/16 05:15 05:15 05:32 WBC RBC Hgb Hct MCV MCH MCHC RDW Plt Count Lymph % (Auto) [place] % (Auto) Lymph # [place] # Baso # Seg Neutrophils % Seg Neuts % (Manual) Lymphocytes % (Manual) Monocytes % (Manual) Eosinophils % (Manual) Basophils % (Manual) Nucleated RBC % Seg Neutrophils # Seg Neutrophils # Man Lymphocytes # (Manual) Monocytes # (Manual) Eosinophils # (Manual) Basophils # (Manual) PT INR Fibrinogen dRVVT Confirm Interp Factor V Activity POC ABG pH POC ABG pCO2 POC ABG pO2 ABG pO2 ABG HCO3 ABG Base Excess ABG Hemoglobin Oxyhemoglobin Sodium Potassium Chloride Carbon Dioxide BUN 74 H Creatinine 1.6 H Glucose 111 H POC Glucose 123 H Lactic Acid Calcium Phosphorus Magnesium Direct Bilirubin AST ALT Alkaline Phosphatase Lactate Dehydrogenase Troponin T C-Reactive Protein Total Protein Albumin Prealbumin 0.110 L Triglycerides Cholesterol LDL Cholesterol Direct HDL Cholesterol Urine pH Urine WBC (Auto) Urine Creatinine Urine Total Protein Fluid Total Protein Vancomycin Trough Rheumatoid Factor Complement C4 Miscellaneous Test Crossmatch 12/29/16 12/29/16 12/29/16 11:43 13:45 14:00 WBC 13.8 H RBC 2.26 L Hgb 6.3 L Hct 20.4 L MCV MCH MCHC RDW 18.3 H Plt Count Lymph % (Auto) [place] % (Auto) Lymph # [place] # 0.9 H Baso # Seg Neutrophils % 78.6 H Seg Neuts % (Manual) Lymphocytes % (Manual) Monocytes % (Manual) Eosinophils % (Manual) Basophils % (Manual) Nucleated RBC % Seg Neutrophils # 10.8 H Seg Neutrophils # Man Lymphocytes # (Manual) Monocytes # (Manual) Eosinophils # (Manual) Basophils # (Manual) PT INR Fibrinogen dRVVT Confirm Interp Factor V Activity POC ABG pH POC ABG pCO2 POC ABG pO2 ABG pO2 ABG HCO3 ABG Base Excess ABG Hemoglobin Oxyhemoglobin Sodium Potassium Chloride Carbon Dioxide BUN Creatinine Glucose POC Glucose 133 H Lactic Acid Calcium Phosphorus Magnesium Direct Bilirubin AST ALT Alkaline Phosphatase Lactate Dehydrogenase Troponin T C-Reactive Protein Total Protein Albumin Prealbumin Triglycerides Cholesterol LDL Cholesterol Direct HDL Cholesterol Urine pH Urine WBC (Auto) Urine Creatinine Urine Total Protein Fluid Total Protein Vancomycin Trough Rheumatoid Factor Complement C4 Miscellaneous Test Crossmatch See Detail 12/29/16 12/29/16 12/29/16 17:03 23:15 23:22 WBC RBC Hgb 7.3 L Hct 22.3 L MCV MCH MCHC RDW Plt Count Lymph % (Auto) [place] % (Auto) Lymph # [place] # Baso # Seg Neutrophils % Seg Neuts % (Manual) Lymphocytes % (Manual) Monocytes % (Manual) Eosinophils % (Manual) Basophils % (Manual) Nucleated RBC % Seg Neutrophils # Seg Neutrophils # Man Lymphocytes # (Manual) Monocytes # (Manual) Eosinophils # (Manual) Basophils # (Manual) PT INR Fibrinogen dRVVT Confirm Interp Factor V Activity POC ABG pH POC ABG pCO2 POC ABG pO2 ABG pO2 ABG HCO3 ABG Base Excess ABG Hemoglobin Oxyhemoglobin Sodium Potassium Chloride Carbon Dioxide BUN Creatinine Glucose POC Glucose 139 H 120 H Lactic Acid Calcium Phosphorus Magnesium Direct Bilirubin AST ALT Alkaline Phosphatase Lactate Dehydrogenase Troponin T C-Reactive Protein Total Protein Albumin Prealbumin Triglycerides Cholesterol LDL Cholesterol Direct HDL Cholesterol Urine pH Urine WBC (Auto) Urine Creatinine Urine Total Protein Fluid Total Protein Vancomycin Trough Rheumatoid Factor Complement C4 Miscellaneous Test Crossmatch 12/30/16 12/30/16 12/30/16 04:20 04:20 05:43 WBC 15.6 H RBC 2.81 L Hgb 8.0 L Hct 24.0 L MCV MCH MCHC RDW 16.9 H Plt Count Lymph % (Auto) [place] % (Auto) Lymph # [place] # 1.0 H Baso # Seg Neutrophils % 76.2 H Seg Neuts % (Manual) Lymphocytes % (Manual) Monocytes % (Manual) Eosinophils % (Manual) Basophils % (Manual) Nucleated RBC % Seg Neutrophils # 11.9 H Seg Neutrophils # Man Lymphocytes # (Manual) Monocytes # (Manual) Eosinophils # (Manual) Basophils # (Manual) PT INR Fibrinogen dRVVT Confirm Interp Factor V Activity POC ABG pH POC ABG pCO2 POC ABG pO2 ABG pO2 ABG HCO3 ABG Base Excess ABG Hemoglobin Oxyhemoglobin Sodium Potassium Chloride Carbon Dioxide BUN 87 H Creatinine 1.8 H Glucose 119 H POC Glucose 115 H Lactic Acid Calcium Phosphorus Magnesium Direct Bilirubin AST ALT Alkaline Phosphatase Lactate Dehydrogenase Troponin T C-Reactive Protein Total Protein Albumin Prealbumin Triglycerides Cholesterol LDL Cholesterol Direct HDL Cholesterol Urine pH Urine WBC (Auto) Urine Creatinine Urine Total Protein Fluid Total Protein Vancomycin Trough Rheumatoid Factor Complement C4 Miscellaneous Test Crossmatch Allied health notes reviewed: RT
[2016-12-30] MEDS ORDERED: NACL 0.9% 100 ML IV PRN ×2 (12:30→14:57)
[2016-12-30] MEDS: PROCRIT IV PRN (16:45)
[2016-12-30] MEDS: DAKIN'S HALF STRENGTH TP SCH (17:04)
--- NOTE | 2016-12-30 17:04 | Progress Note ---
Assessment and Plan Assessment and plan: Patient is 46-year-old woman with a history of hypertension, diabetes, asthma, hyperlipidemia, chronic kidney disease and anxiety , who was brought in by family because, she couldn't get her words out, her face was also twisted, she was admitted for acute CVA and accelerated hypertension, she had a hx of poor adherence with her medications, and uncontrolled htn. Patient's SBP on admission was noted be greater than 260. TPA was started but this was discontinued after 5 minutes because her blood pressure became uncontrolled. The TPA was not initiated again because the patient was outside the TPA window. Status post cardiac arrest , 11/21/16 - Received CPR and was resuscitated. - Patient is on amiodarone. Fever - resolved - Antibiotic discontinued today per ID - s/p R thoracentesis on 11/14, 240cc of serous fluid removed, cx of fluid was negative - Stool negative for C. difficile Severe Sepsis with septic shock - Patient has episode of fever and leukocytosis Surgical wound infection/gram-negative sepsis/candidemia/peritonitis - On TPN JUANITA, ESRD - on HD per nephrology Acute CVA with infarct - Neurology input appreciated - CT shows continued evolution of left MCA infarct with slight mass effect and edema, and there is no hemorrhage - PRINCE showed hyperdynamic with ef of 75%, neither clot nor septal defect seen - MRA Brain shows near complete occlusion of M2 and M3 of the left MCA - Repeat CT scan done on 09/11, shows stable findings - carotid doppler negative - Echo shows preserved systolic function but does show some left ventricular diastolic dysfunction - continue asa and statin Persistent vegetative state - This patient's needs placement at SNF - She was denied for LTACH Acute hypoxic respiratory failure requiring MV >96hrs - Status post tracheostomy, was on T piece Nosocomial acquired aspiration pneumonia/sepsis/UTI - Finished a course of antibiotics Asthma/COPD exacerbation - ON trach, mechanical ventilation Status Post CVA Bilateral pleural effusion, s/p right thoracentesis A. fib with RVR Diabetes type 2. Continue sliding-scale regular insulin and Accu-Cheks. Hyperlipidemia. Continue statin Nutrition - TPN Anemia requiring multiple transfusions/acute blood loss - currently stable - Will transfuse if it is below 7 Sacral decubitus ulcer - Status post debridement Disposition. Very poor prognosis. The high probability of a clinically significant, sudden or life threatening deterioration of the [neurologic, CV] system(s) required my full and direct attention, intervention and personal management. The aggregate critical care time was [34] minutes. This time is in addition to time spent performing reported procedures but includes the following: [x] Data Review and interpretation [x] Patient assessment and monitoring of vital signs [x] Documentation [x] Medication orders and management History Interval history: Patient was seen and evaluated this morning, patient is in persistent vegetative state. Status post trach, fistulas on the skin around the stomach area. Sacral decubitus ulcer s/p debridement. Hospitalist Physical - Physical exam Narrative exam: Patient is on mechanical ventilation, on trach. Vital signs as documented. Head exam is unremarkable. No scleral icterus . Neck is without jugular venous distension, thyromegaly, or carotid bruits. Lungs are clear to auscultation. Cardiac exam reveals regular rate and Rhythm. First and second heart sounds normal. No murmurs, rubs or gallops. Abdominal exam reveals abscess draining from the PEG site, and multiple fistulas around the stomach. Extremities are nonedematous and both femoral and pedal pulses are normal. Sacral decubitus ulcer. 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 - Constitutional Vitals: Temp Pulse Resp BP Pulse Ox 97.8 F 93 H 24 98/67 100 12/30/16 16:00 12/30/16 17:01 12/30/16 16:45 12/30/16 17:01 12/30/16 16:45 General appearance: Present: no acute distress, well-nourished, obese Results - Labs CBC & Chem 7: 12/30/16 04:20 12/30/16 04:20 Labs: Laboratory Last Values WBC 15.6 K/mm3 (4.5-11.0) H 12/30/16 04:20 RBC 2.81 M/mm3 (3.65-5.03) L 12/30/16 04:20 Hgb 8.0 gm/dl (10.1-14.3) L 12/30/16 04:20 Hct 24.0 % (30.3-42.9) L 12/30/16 04:20 MCV 86 fl (79-97) 12/30/16 04:20 MCH 29 pg (28-32) 12/30/16 04:20 MCHC 33 % (30-34) 12/30/16 04:20 RDW 16.9 % (13.2-15.2) H 12/30/16 04:20 Plt Count 319 K/mm3 (140-440) 12/30/16 04:20 Lymph % (Auto) 15.9 % (13.4-35.0) 12/30/16 04:20 [place] % (Auto) 6.7 % (0.0-7.3) 12/30/16 04:20 Eos % (Auto) 0.5 % (0.0-4.3) 12/30/16 04:20 Baso % (Auto) 0.7 % (0.0-1.8) 12/30/16 04:20 Lymph # 2.5 K/mm3 (1.2-5.4) 12/30/16 04:20 [place] # 1.0 K/mm3 (0.0-0.8) H 12/30/16 04:20 Eos # 0.1 K/mm3 (0.0-0.4) 12/30/16 04:20 Baso # 0.1 K/mm3 (0.0-0.1) 12/30/16 04:20 Add Manual Diff Complete 12/19/16 05:02 Total Counted 100 12/19/16 05:02 Seg Neutrophils % 76.2 % (40.0-70.0) H 12/30/16 04:20 Seg Neuts % (Manual) 64.0 % (40.0-70.0) 12/19/16 05:02 Band Neutrophils % 15.0 % 12/19/16 05:02 Lymphocytes % (Manual) 13.0 % (13.4-35.0) L 12/19/16 05:02 Reactive Lymphs % (Man) 0 % 12/19/16 05:02 Monocytes % (Manual) 7.0 % (0.0-7.3) 12/19/16 05:02 Eosinophils % (Manual) 0 % (0.0-4.3) 12/19/16 05:02 Basophils % (Manual) 1.0 % (0.0-1.8) 12/19/16 05:02 Metamyelocytes % 0 % 12/19/16 05:02 Myelocytes % 0 % 12/19/16 05:02 Promyelocytes % 0 % 12/19/16 05:02 Blast Cells % 0 % 12/19/16 05:02 Nucleated RBC % 1.0 % (0.0-0.9) H 12/19/16 05:02 Seg Neutrophils # 11.9 K/mm3 (1.8-7.7) H 12/30/16 04:20 Seg Neutrophils # Man 12.9 K/mm3 (1.8-7.7) H 12/19/16 05:02 Band Neutrophils # 3.0 K/mm3 12/19/16 05:02 Lymphocytes # (Manual) 2.6 K/mm3 (1.2-5.4) 12/19/16 05:02 Abs React Lymphs (Man) 0.0 K/mm3 12/19/16 05:02 Monocytes # (Manual) 1.4 K/mm3 (0.0-0.8) H 12/19/16 05:02 Eosinophils # (Manual) 0.0 K/mm3 (0.0-0.4) 12/19/16 05:02 Basophils # (Manual) 0.2 K/mm3 (0.0-0.1) H 12/19/16 05:02 Metamyelocytes # 0.0 K/mm3 12/19/16 05:02 Myelocytes # 0.0 K/mm3 12/19/16 05:02 Promyelocytes # 0.0 K/mm3 12/19/16 05:02 Blast Cells # 0.0 K/mm3 12/19/16 05:02 Pathologist Review 09/13/16 04:00 WBC Morphology Not Reportable 12/19/16 05:02 Hypersegmented Neuts Not Reportable 12/19/16 05:02 Hyposegmented Neuts Not Reportable 12/19/16 05:02 Hypogranular Neuts Not Reportable 12/19/16 05:02 Smudge Cells Not Reportable 12/19/16 05:02 Toxic Granulation Not Reportable 12/19/16 05:02 Toxic Vacuolation Not Reportable 12/19/16 05:02 Dohle Bodies Not Reportable 12/19/16 05:02 Pelger-Huet Anomaly Not Reportable 12/19/16 05:02 Jasmina Rods Not Reportable 12/19/16 05:02 Platelet Estimate Consistent w auto 12/19/16 05:02 Clumped Platelets Not Reportable 12/19/16 05:02 Plt Clumps, EDTA Not Reportable 12/19/16 05:02 Large Platelets Not Reportable 12/19/16 05:02 Giant Platelets Not Reportable 12/19/16 05:02 Platelet Satelliting Not Reportable 12/19/16 05:02 Plt Morphology Comment Not Reportable 12/19/16 05:02 RBC Morphology Not Reportable 12/19/16 05:02 Dimorphic RBCs Not Reportable 12/19/16 05:02 Polychromasia Not Reportable 12/19/16 05:02 Hypochromasia Not Reportable 12/19/16 05:02 Poikilocytosis Not Reportable 12/19/16 05:02 Anisocytosis Not Reportable 12/19/16 05:02 Microcytosis Not Reportable 12/19/16 05:02 Macrocytosis Not Reportable 12/19/16 05:02 Spherocytes Not Reportable 12/19/16 05:02 Pappenheimer Bodies Not Reportable 12/19/16 05:02 Sickle Cells Not Reportable 12/19/16 05:02 Target Cells Few 12/19/16 05:02 Tear Drop Cells Not Reportable 12/19/16 05:02 Ovalocytes Not Reportable 12/19/16 05:02 Stomatocytes Rare 12/03/16 04:00 Helmet Cells Not Reportable 12/19/16 05:02 Monet-Dewart Bodies Not Reportable 12/19/16 05:02 [place] Rings Not Reportable 12/19/16 05:02 Chuck Cells Not Reportable 12/19/16 05:02 Bite Cells Not Reportable 12/19/16 05:02 Crenated Cell Not Reportable 12/19/16 05:02 Elliptocytes Not Reportable 12/19/16 05:02 Acanthocytes (Spur) Not Reportable 12/19/16 05:02 Rouleaux Not Reportable 12/19/16 05:02 Hemoglobin C Crystals Not Reportable 12/19/16 05:02 Schistocytes Not Reportable 12/19/16 05:02 Malaria parasites Not Reportable 12/19/16 05:02 ESR > 140.0 mm/Hr (0-20) 09/08/16 11:48 Jun Bodies Not Reportable 12/19/16 05:02 Hem Pathologist Commnt No 12/19/16 05:02 PT 16.1 Sec. (12.2-14.9) H 12/28/16 08:30 INR 1.23 (0.87-1.13) H 12/28/16 08:30 APTT 33.0 Sec. (24.2-36.6) 10/09/16 03:45 Thrombin Time 16.8 Sec. (15.1-19.6) 09/03/16 00:10 Fibrinogen 750 mg/dl (211-480) H 09/08/16 11:48 Lupus Anticoagulant see below 09/12/16 09:59 LA PTT Baseline See scanned report 09/12/16 09:59 dRVVT Confirm Interp Positive (Negative) H 09/12/16 09:59 dRVVT Screen 50:50 See scanned report 09/12/16 09:59 dRVVT Mix Interpret See scanned report 09/12/16 09:59 Protein C Antigen 122 % (70-140) 09/08/16 15:35 Free Protein S 97 % normal (50-147) 09/08/16 15:35 Total Protein S 109 % (70-140) 09/08/16 15:35 Antithrombin III Ag 100 % (80-120) 09/08/16 15:35 Heparin Anti-Xa, Unfract Negative (Negative) 09/29/16 13:35 Factor V Activity 182 % (65-150) H 09/08/16 15:35 POC ABG pH 7.503 (7.35-7.45) H 12/19/16 09:36 ABG pH 7.450 pH Units (7.350-7.450) 12/05/16 Unknown POC ABG pCO2 30.1 (35-45) L 12/19/16 09:36 ABG pCO2 29.6 mm Hg 12/05/16 Unknown POC ABG pO2 85 (80-105) 12/19/16 09:36 ABG pO2 75.2 mm Hg (80.0-90.0) L 12/05/16 Unknown POC ABG HCO3 23.6 12/19/16 09:36 ABG HCO3 20.1 mmol/L (20.0-26.0) 12/05/16 Unknown POC ABG Total CO2 25 12/19/16 09:36 POC ABG O2 Sat 97 12/19/16 09:36 ABG O2 Saturation 96.8 % (95.0-99.0) 12/05/16 Unknown ABG O2 Content 9.9 (0.0-44) 12/05/16 Unknown POC ABG Base Excess 1 12/19/16 09:36 ABG Base Excess -3.4 mmol/L (-2.0-3.0) L 12/05/16 Unknown ABG Hemoglobin 7.4 gm/dl (12.0-16.0) L 12/05/16 Unknown ABG Carboxyhemoglobin 1.8 % (0.0-5.0) 12/05/16 Unknown ABG Methemoglobin 0.6 % (0.0-1.5) 12/05/16 Unknown Oxyhemoglobin 94.5 % (95.0-99.0) L 12/05/16 Unknown FiO2 28 % 12/19/16 09:36 Sodium 141 mmol/L (137-145) 12/30/16 04:20 Potassium 3.8 mmol/L (3.6-5.0) 12/30/16 04:20 Chloride 100.9 mmol/L (98-107) 12/30/16 04:20 Carbon Dioxide 23 mmol/L (22-30) 12/30/16 04:20 Anion Gap 21 mmol/L 12/30/16 04:20 BUN 87 mg/dL (7-17) H 12/30/16 04:20 Creatinine 1.8 mg/dL (0.7-1.2) H 12/30/16 04:20 Estimated GFR 37 ml/min 12/30/16 04:20 BUN/Creatinine Ratio 48 % 12/30/16 04:20 Glucose 119 mg/dL (65-100) H 12/30/16 04:20 POC Glucose 115 (70-105) H 12/30/16 05:43 Osmolality 351 Mosm/kg 09/16/16 11:47 Lactic Acid 4.50 mmol/L (0.7-2.0) H* 09/28/16 07:25 Calcium 9.3 mg/dL (8.4-10.2) 12/30/16 04:20 Phosphorus 3.80 mg/dL (2.5-4.5) 12/30/16 04:20 Magnesium 2.20 mg/dL (1.7-2.3) 12/30/16 04:20 Total Bilirubin 0.90 mg/dL (0.1-1.2) 12/18/16 05:00 Direct Bilirubin 0.3 mg/dL (0-0.2) H 10/10/16 05:00 Indirect Bilirubin 0.1 mg/dL 10/10/16 05:00 AST 34 units/L (5-40) 12/18/16 05:00 ALT 42 units/L (7-56) 12/18/16 05:00 Alkaline Phosphatase 257 units/L (35-129) H 12/18/16 05:00 Ammonia 27.0 umol/L (25-60) 09/07/16 08:37 Lactate Dehydrogenase 196 units/L (91-180) H 11/11/16 06:59 Total Creatine Kinase 121 units/L (30-135) 09/29/16 20:12 CK-MB (CK-2) < 1.0 ng/mL (0.0-4.0) 09/29/16 20:12 CK-MB (CK-2) Rel Index 0.8 (0-4) 09/29/16 20:12 Troponin T 0.204 ng/mL (0.00-0.029) H* 09/29/16 20:12 C-Reactive Protein 19.30 mg/dL (0.00-1.30) H 12/05/16 05:00 Total Protein 5.9 g/dL (6.3-8.2) L 12/18/16 05:00 Albumin 1.8 g/dL (3.9-5) L 12/18/16 05:00 Albumin/Globulin Ratio 0.4 % 12/18/16 05:00 Prealbumin 0.110 g/L (0.200-0.400) L 12/29/16 05:15 Triglycerides 137 mg/dL (2-149) 09/29/16 20:12 Cholesterol 31 mg/dL (50-199) L 09/29/16 20:12 LDL Cholesterol Direct 4 mg/dL (50-130) L 09/29/16 20:12 HDL Cholesterol 3 mg/dL (40-59) L 09/29/16 20:12 Cholesterol/HDL Ratio 10.33 % 09/29/16 20:12 Angiotensin Convert Enz See scanned report 09/08/16 11:48 Renin 0.99 ng/mL/h (0.25-5.82) 10/07/16 10:56 Aldosterone <1 ng/dL () 10/07/16 10:56 Aldosterone/Renin Dir see below 10/07/16 10:56 Serotonin Release Assay See scanned report 09/29/16 13:35 TSH 1.010 mlU/mL (0.270-4.200) 09/07/16 08:37 HCG, Qual Negative (Negative) 09/03/16 00:10 Urine Color Yellow (Yellow) 11/05/16 13:09 Urine Turbidity Clear (Clear) 11/05/16 13:09 Urine pH 9.0 (5.0-7.0) H 11/05/16 13:09 Ur Specific [place] 1.011 (1.003-1.030) 11/05/16 13:09 Urine Protein 100 mg/dl mg/dL (Negative) 11/05/16 13:09 Urine Glucose (UA) Neg mg/dL (Negative) 11/05/16 13:09 Urine Ketones Neg mg/dL (Negative) 11/05/16 13:09 Urine Blood Neg (Negative) 11/05/16 13:09 Urine Nitrite Neg (Negative) 11/05/16 13:09 Urine Bilirubin Neg (Negative) 11/05/16 13:09 Urine Urobilinogen < 2.0 mg/dL (<2.0) 11/05/16 13:09 Ur Leukocyte Esterase Neg (Negative) 11/05/16 13:09 Urine WBC (Auto) 4.0 /HPF (0.0-6.0) 11/05/16 13:09 Urine RBC (Auto) 1.0 /HPF (0.0-6.0) 11/05/16 13:09 U Epithel Cells (Auto) 1.0 /HPF (0-13.0) 10/07/16 18:30 Urine Bacteria (Auto) 4+ /HPF (Negative) 11/05/16 13:09 Urine WBC Clumps 2+ /HPF 09/07/16 02:47 Hyaline Casts 4 /LPF 09/07/16 02:47 Urine Mucus Few /HPF 10/07/16 18:30 Urine Yeast (Budding) 3+ /HPF 10/07/16 18:30 Urine Eosinophils None seen (None Seen) 09/07/16 16:00 Urine Total Volume 950 11/12/16 10:18 Urine Creatinine 19.7 mg/dL (0.1-20.0) 11/12/16 10:18 Height (in) 65.0 inches 11/12/16 10:18 Weight (lb) 181.0 lbs 11/12/16 10:18 Creatinine Clearance 5 11/12/16 10:18 Urine Sodium 36 mEq/L 09/16/16 19:19 Urine Total Protein 16 mg/dL (5-11.8) H 09/16/16 19:19 Fluid Total Protein < 3.0 (15.0-45.0) L 11/10/16 14:20 Fluid LDH 123 11/10/16 14:20 Vancomycin Trough 2.3 ug/mL (5.0-20.0) L 09/21/16 13:00 Random Vancomycin 16.5 ug/mL (0-40.0) 11/28/16 09:45 Urine Opiates Screen Presumptive negative 09/03/16 15:11 Urine Methadone Screen Presumptive positive 09/03/16 15:11 Ur Barbiturates Screen Presumptive positive 09/03/16 15:11 Ur Phencyclidine Scrn Presumptive negative 09/03/16 15:11 Ur Amphetamines Screen Presumptive negative 09/03/16 15:11 U Benzodiazepines Scrn Presumptive negative 09/03/16 15:11 Urine Cocaine Screen Presumptive negative 09/03/16 15:11 U Marijuana (THC) Screen Presumptive positive 09/03/16 15:11 Drugs of Abuse Note Disclamer 09/03/16 15:11 Rheumatoid Factor 24 IU/ml (0-13) H 09/08/16 11:48 SAHIL Screen Negative (Negative) 09/07/16 09:20 Proteinase 3 (PR3) Ab <1.0 AI (<1.0) 09/07/16 09:20 Myeloperoxidase Ab <1.0 AI (<1.0) 09/07/16 09:20 Sjogren's Antibody <1.0 AI (<1.0) 09/08/16 15:35 Scl-70 Scleroderma Ab <1.0 AI (<1.0) 09/08/16 15:35 Centromere B Antibody <1.0 AI (<1.0) 09/08/16 12:02 Heparin-induced Plt Ab Negative (Negative) 09/29/16 13:35 UF Heparin High Dose 11 % Release 09/29/16 13:35 SUDHIR UFH Low Dose 0.1 6 % Release 09/29/16 13:35 SUDHIR UFH Low Dose 0.5 8 % Release 09/29/16 13:35 Cardiolipid IgG Ab <14 GPL (<=14) 09/12/16 09:59 Cardiolipid IgA Ab <11 APL (<=11) 09/12/16 09:59 Cardiolipid IgM Ab <12 MPL (<=12) 09/12/16 09:59 Complement C3 148 mg/dL (90-180) 09/07/16 09:20 Complement C4 58 mg/dL (16-47) H 09/07/16 09:20 RPR Nonreactive (Nonreactive) 09/08/16 11:48 Hepatitis A IgM Ab Non-reactive (NonReactive) 09/24/16 14:40 Hep Bs Antigen Non-reactive (Negative) 09/24/16 14:40 Hep B Core IgM Ab Non-reactive (NonReactive) 09/24/16 14:40 Hepatitis C Antibody Non-reactive (NonReactive) 09/24/16 14:40 HIV 1&2 Antibody Rapid Non react (Non React) 09/08/16 11:48 HIV P24 Antigen Non react (Non React) 09/08/16 11:48 Miscellaneous Test Flexitest 1 H 11/05/16 13:25 Blood Type A POSITIVE 12/29/16 14:00 Antibody Screen Negative 12/29/16 14:00 DELORIS Antibody Screen Negative 11/24/16 11:20 Crossmatch See Detail 12/29/16 14:00
[2016-12-30] MEDS: HEPARIN IV PRN (18:02)
[2016-12-30] MEDS ORDERED: INTRALIPID 20% 250 ML IV SCH (20:00)
[2016-12-30] MEDS ORDERED: TPN ADULT IV SCH (20:00)
[2016-12-31] MEDS: DAKIN'S HALF STRENGTH TP SCH ×2 (00:03→09:13)
[2016-12-31] MEDS: DUONEB *Not for PRN Use IH SCH ×4 (02:12→20:48)
[2016-12-31 06:06] LABS: Calcium 8.5 mg/dL (8.4-10.2)
[2016-12-31] MEDS: HumuLIN R SUB-Q SCH ×3 (06:46→12:18)
[2016-12-31] MEDS: REGLAN IV SCH ×4 (06:47→17:38)
[2016-12-31] MEDS: LOPRESSOR PO SCH ×4 (06:49→17:38)
[2016-12-31] MEDS: APRESOLINE PO SCH ×2 (06:52→15:35)
[2016-12-31] MEDS: PROTONIX FEEDTUBE SCH (09:09)
[2016-12-31] MEDS: CORDARONE PO SCH ×2 (09:09→22:25)
[2016-12-31] MEDS: HEPARIN SUB-Q SCH ×2 (09:09→22:26)
[2016-12-31] MEDS: ROBINUL PO SCH ×2 (09:09→22:26)
[2016-12-31] MEDS: NORVASC PO SCH (09:12)
--- NOTE | 2016-12-31 10:59 | Progress Note ---
Assessment and Plan - Patient Problems (1) JUANITA (acute kidney injury) Current Visit: Yes Status: Acute Plan to address problem: Multiple comorbid conditions-Suggest supportive care .Monitor urine output. Hold off HD over the weekend and check for renal recovery. Pt was reported to have decubitus ulcer-had surgical debridement. Encephalopathy-same. Discussed with hospitalist- (2) Acute CVA (cerebrovascular accident) Current Visit: Yes Status: Acute (3) Acute respiratory failure with hypoxia Current Visit: Yes Status: Acute (4) Atrial fibrillation Current Visit: Yes Status: Chronic Qualifiers: Atrial fibrillation type: A (5) Type 2 diabetes mellitus Current Visit: Yes Status: Chronic Qualifiers: Diabetes mellitus complication status: D Diabetes mellitus complication detail: D Diabetic retinopathy severity: D Proliferative retinopathy type: P Diabetes mellitus macular edema: D Diabetes mellitus [employer] insulin use : D Laterality: L Chronic kidney disease stage: C (6) Anemia Current Visit: No Status: Acute Qualifiers: Anemia type: unspecified type Iron deficiency anemia type: I Vitamin B12 deficiency anemia type: V Folate deficiency anemia type: F Bone marrow failure anemia type: B Hemolytic anemia type: H Other causes of anemia: O Chronic kidney disease stage: C Qualified Code(s): D64.9 - Anemia, unspecified (7) HTN (hypertension) Current Visit: Yes Status: Chronic Qualifiers: Hypertension type: H (8) Diabetes Current Visit: Yes Status: Acute Qualifiers: Diabetes mellitus type: type 1 Diabetes mellitus complication status: with hyperglycemia Diabetes mellitus complication detail: D Diabetic retinopathy severity: D Proliferative retinopathy type: P Diabetes mellitus macular edema: D Diabetes mellitus [facility] insulin use: D Laterality: L Chronic kidney disease stage: C Qualified Code(s): E10.65 - Type 1 diabetes mellitus with hyperglycemia Subjective Date of service: 12/31/16 Principal diagnosis: Acute resp failure on MVS; S/P Acute CVA; Acute Encephalopathy; JUANITA Interval history: chart was reviewed, discussed with pt's nurse. on ventilator via trach. Fio2-35% Objective - Vital Signs Vital signs: Vital Signs - 12hr 12/30/16 12/30/16 12/30/16 23:00 23:15 23:30 Temperature Pulse Rate 111 H 112 H 110 H Pulse Rate [ Anterior Bilateral Throughout] Pulse Rate [ From Monitor] Pulse Rate [ Right Dorsalis Pedis] Respiratory 21 24 25 H Rate Respiratory Rate [Anterior Bilateral Throughout] Blood Pressure 130/73 120/76 119/73 O2 Sat by Pulse 100 100 100 Oximetry O2 Sat by Pulse Oximetry [ Assessment] 12/30/16 12/30/16 12/31/16 23:45 23:50 00:00 Temperature 98.6 F Pulse Rate 112 H 112 H 109 H Pulse Rate [ Anterior Bilateral Throughout] Pulse Rate [ From Monitor] Pulse Rate [ 112 H Right Dorsalis Pedis] Respiratory 24 20 Rate Respiratory Rate [Anterior Bilateral Throughout] Blood Pressure 124/75 124/75 118/79 O2 Sat by Pulse 100 100 Oximetry O2 Sat by Pulse Oximetry [ Assessment] 12/31/16 12/31/16 12/31/16 00:04 00:05 00:15 Temperature Pulse Rate 100 H 102 H 95 H Pulse Rate [ Anterior Bilateral Throughout] Pulse Rate [ From Monitor] Pulse Rate [ Right Dorsalis Pedis] Respiratory 21 20 Rate Respiratory Rate [Anterior Bilateral Throughout] Blood Pressure 118/79 118/79 125/77 O2 Sat by Pulse 100 100 100 Oximetry O2 Sat by Pulse Oximetry [ Assessment] 12/31/16 12/31/16 12/31/16 00:30 00:45 01:00 Temperature Pulse Rate 94 H 92 H 94 H Pulse Rate [ Anterior Bilateral Throughout] Pulse Rate [ From Monitor] Pulse Rate [ Right Dorsalis Pedis] Respiratory 23 21 23 Rate Respiratory Rate [Anterior Bilateral Throughout] Blood Pressure 134/83 118/81 133/82 O2 Sat by Pulse 100 100 100 Oximetry O2 Sat by Pulse Oximetry [ Assessment] 12/31/16 12/31/16 12/31/16 01:15 01:30 01:45 Temperature Pulse Rate 94 H 94 H 96 H Pulse Rate [ Anterior Bilateral Throughout] Pulse Rate [ From Monitor] Pulse Rate [ Right Dorsalis Pedis] Respiratory 21 22 23 Rate Respiratory Rate [Anterior Bilateral Throughout] Blood Pressure 136/84 127/77 135/81 O2 Sat by Pulse 100 100 100 Oximetry O2 Sat by Pulse Oximetry [ Assessment] 12/31/16 12/31/16 12/31/16 02:00 02:12 02:15 Temperature Pulse Rate 96 H 101 H Pulse Rate [ 98 H Anterior Bilateral Throughout] Pulse Rate [ From Monitor] Pulse Rate [ Right Dorsalis Pedis] Respiratory 22 12 Rate Respiratory 12 Rate [Anterior Bilateral Throughout] Blood Pressure 135/81 137/83 O2 Sat by Pulse 100 99 Oximetry O2 Sat by Pulse 100 Oximetry [ Assessment] 12/31/16 12/31/16 12/31/16 02:21 02:31 02:45 Temperature Pulse Rate 101 H 102 H Pulse Rate [ 102 H Anterior Bilateral Throughout] Pulse Rate [ From Monitor] Pulse Rate [ Right Dorsalis Pedis] Respiratory 18 15 Rate Respiratory 17 Rate [Anterior Bilateral Throughout] Blood Pressure 127/82 127/82 O2 Sat by Pulse 98 98 Oximetry O2 Sat by Pulse Oximetry [ Assessment] 12/31/16 12/31/16 12/31/16 02:58 03:00 03:15 Temperature 97.5 F L Pulse Rate 102 H 96 H Pulse Rate [ Anterior Bilateral Throughout] Pulse Rate [ From Monitor] Pulse Rate [ Right Dorsalis Pedis] Respiratory 23 24 Rate Respiratory Rate [Anterior Bilateral Throughout] Blood Pressure 115/66 103/57 O2 Sat by Pulse 97 98 Oximetry O2 Sat by Pulse Oximetry [ Assessment] 12/31/16 12/31/16 12/31/16 03:30 03:45 04:00 Temperature Pulse Rate 95 H 94 H 95 H Pulse Rate [ Anterior Bilateral Throughout] Pulse Rate [ From Monitor] Pulse Rate [ 103 H Right Dorsalis Pedis] Respiratory 28 H 23 26 H Rate Respiratory Rate [Anterior Bilateral Throughout] Blood Pressure 99/66 92/62 108/69 O2 Sat by Pulse 100 100 100 Oximetry O2 Sat by Pulse Oximetry [ Assessment] 12/31/16 12/31/16 12/31/16 04:15 04:30 04:45 Temperature Pulse Rate 94 H 93 H 94 H Pulse Rate [ Anterior Bilateral Throughout] Pulse Rate [ From Monitor] Pulse Rate [ Right Dorsalis Pedis] Respiratory 27 H 21 24 Rate Respiratory Rate [Anterior Bilateral Throughout] Blood Pressure 111/67 114/67 116/68 O2 Sat by Pulse 100 100 100 Oximetry O2 Sat by Pulse Oximetry [ Assessment] 12/31/16 12/31/16 12/31/16 04:55 05:00 05:15 Temperature Pulse Rate 98 H 98 H 98 H Pulse Rate [ Anterior Bilateral Throughout] Pulse Rate [ From Monitor] Pulse Rate [ Right Dorsalis Pedis] Respiratory 25 H 25 H Rate Respiratory Rate [Anterior Bilateral Throughout] Blood Pressure 114/64 122/78 126/73 O2 Sat by Pulse 100 100 98 Oximetry O2 Sat by Pulse Oximetry [ Assessment] 12/31/16 12/31/1617 05:30 05:45 06:00 Temperature Pulse Rate 100 H 100 H 97 H Pulse Rate [ Anterior Bilateral Throughout] Pulse Rate [ From Monitor] Pulse Rate [ Right Dorsalis Pedis] Respiratory 26 H 25 H 18 Rate Respiratory Rate [Anterior Bilateral Throughout] Blood Pressure 117/81 114/74 112/63 O2 Sat by Pulse 98 97 97 Oximetry O2 Sat by Pulse Oximetry [ Assessment] 12/31/16 12/31/16 12/31/16 06:15 06:30 06:45 Temperature Pulse Rate 101 H 99 H 99 H Pulse Rate [ Anterior Bilateral Throughout] Pulse Rate [ From Monitor] Pulse Rate [ Right Dorsalis Pedis] Respiratory 25 H 28 H 22 Rate Respiratory Rate [Anterior Bilateral Throughout] Blood Pressure 117/72 112/66 112/68 O2 Sat by Pulse 97 96 96 Oximetry O2 Sat by Pulse Oximetry [ Assessment] 12/31/16 12/31/16 12/31/16 06:49 06:50 06:52 Temperature Pulse Rate 116 H 96 H 94 H Pulse Rate [ Anterior Bilateral Throughout] Pulse Rate [ From Monitor] Pulse Rate [ Right Dorsalis Pedis] Respiratory Rate Respiratory Rate [Anterior Bilateral Throughout] Blood Pressure 132/84 112/68 112/68 O2 Sat by Pulse Oximetry O2 Sat by Pulse Oximetry [ Assessment] 12/31/16 12/31/16 12/31/16 07:00 07:15 07:19 Temperature Pulse Rate 98 H 105 H 94 H Pulse Rate [ Anterior Bilateral Throughout] Pulse Rate [ From Monitor] Pulse Rate [ Right Dorsalis Pedis] Respiratory 17 25 H Rate Respiratory Rate [Anterior Bilateral Throughout] Blood Pressure 109/60 125/84 125/84 O2 Sat by Pulse 100 100 Oximetry O2 Sat by Pulse Oximetry [ Assessment] 12/31/16 12/31/16 12/31/16 07:22 07:27 07:30 Temperature Pulse Rate 102 H Pulse Rate [ 98 H Anterior Bilateral Throughout] Pulse Rate [ From Monitor] Pulse Rate [ Right Dorsalis Pedis] Respiratory 15 Rate Respiratory 13 Rate [Anterior Bilateral Throughout] Blood Pressure 119/69 O2 Sat by Pulse 96 Oximetry O2 Sat by Pulse 100 Oximetry [ Assessment] 12/31/16 12/31/16 12/31/16 07:45 08:00 08:15 Temperature 97 F L Pulse Rate 104 H 104 H 105 H Pulse Rate [ Anterior Bilateral Throughout] Pulse Rate [ 104 H From Monitor] Pulse Rate [ Right Dorsalis Pedis] Respiratory 13 15 26 H Rate Respiratory Rate [Anterior Bilateral Throughout] Blood Pressure 113/68 109/72 115/65 O2 Sat by Pulse 97 98 99 Oximetry O2 Sat by Pulse Oximetry [ Assessment] 12/31/16 12/31/16 12/31/16 08:30 08:45 09:00 Temperature Pulse Rate 104 H 104 H 103 H Pulse Rate [ Anterior Bilateral Throughout] Pulse Rate [ From Monitor] Pulse Rate [ Right Dorsalis Pedis] Respiratory 25 H 25 H 25 H Rate Respiratory Rate [Anterior Bilateral Throughout] Blood Pressure 115/64 114/64 117/70 O2 Sat by Pulse 100 99 99 Oximetry O2 Sat by Pulse Oximetry [ Assessment] 12/31/16 12/31/16 12/31/16 09:12 09:15 09:30 Temperature Pulse Rate 103 H 105 H 104 H Pulse Rate [ Anterior Bilateral Throughout] Pulse Rate [ From Monitor] Pulse Rate [ Right Dorsalis Pedis] Respiratory 17 25 H Rate Respiratory Rate [Anterior Bilateral Throughout] Blood Pressure 117/70 122/68 109/63 O2 Sat by Pulse 98 100 Oximetry O2 Sat by Pulse Oximetry [ Assessment] 12/31/16 12/31/16 09:45 10:00 Temperature Pulse Rate 101 H 101 H Pulse Rate [ Anterior Bilateral Throughout] Pulse Rate [ From Monitor] Pulse Rate [ Right Dorsalis Pedis] Respiratory 26 H 25 H Rate Respiratory Rate [Anterior Bilateral Throughout] Blood Pressure 101/58 100/56 O2 Sat by Pulse 99 99 Oximetry O2 Sat by Pulse Oximetry [ Assessment] - General Appearance General appearance: chronically ill, other (on ventilator, eyes open. but not following commands) EENT: mucous membranes dry Neck: no JVD Respiratory: Present: Decreased Breath Sounds Cardiology: irregular Gastrointestinal: normoactive bowel sounds Musculoskeletal: other (1+edema) - Lab 12/30/16 04:20 12/31/16 04:00 Most recent lab results ABG pH 7.450 pH Units (7.350-7.450) 12/05/16 Unknown ABG pCO2 29.6 mm Hg 12/05/16 Unknown ABG pO2 75.2 mm Hg (80.0-90.0) L 12/05/16 Unknown ABG HCO3 20.1 mmol/L (20.0-26.0) 12/05/16 Unknown ABG O2 Saturation 96.8 % (95.0-99.0) 12/05/16 Unknown Calcium 8.5 mg/dL (8.4-10.2) 12/31/16 04:00 Phosphorus 2.50 mg/dL (2.5-4.5) D 12/31/16 04:00 Magnesium 2.00 mg/dL (1.7-2.3) 12/31/16 04:00 Urine Creatinine 19.7 mg/dL (0.1-20.0) 11/12/16 10:18 Urine Sodium 36 mEq/L 09/16/16 19:19 Urine Total Protein 16 mg/dL (5-11.8) H 09/16/16 19:19
--- NOTE | 2016-12-31 11:34 | Progress Note ---
Assessment and Plan 46-year-old woman with a history of hypertension, diabetes, asthma, hyperlipidemia, chronic kidney disease and anxiety , who was brought in by family because, she couldn't get her words out, her face was also twisted, she was admitted for acute CVA and accelerated hypertension, she had a hx of poor adherence with her medications, and uncontrolled htn. Patient's SBP on admission was noted be greater than 260. TPA was started but this was discontinued after 5 minutes because her blood pressure became uncontrolled. The TPA was not initiated again because the patient was outside the TPA window. Acute hypoxic respiratory failure requiring MV >96hrs Status post tracheostomy, back on full mechanical ventilatory support s/p PEA arrest with ROSC. VAP bundle addressed. Continue with daily SBTs as tolerated VTE prophylaxis Stress ulcer prophylaxis Aspiration precautions HOB>40 Lung protective strategies -Severe Sepsis with septic shock, recurrent. Patient with multiple episodes of sepsis. Initial episode due to presumed aspiration pneumonia and septic episode on 09/23 from candidemia then a third episode from peritonitis from gastric perforation from dislodged PEG , there was an abscess in the abdomen present at that time that was draining pus. +/-UTI. Leukocytosis CT abdomen done post code to evaluate for worsening leukocytosis.... probable fistula sp R thoracentesis on 11/14, 240cc of serous fluid removed, cx of fluid was negative Intra abdominal fistula ID following Surgical wound infection/gram-negative sepsis/candidemia/peritonitis -TPN for nutritional support -Promotility agents today, monitor response. No further episodes of vomiting this morning -continue wound care to ostomy sites -Bowel regimen JUANITA, now ESRD Likely due to vasomotor nephropathy and ATN given sepsis Nephrology input appreciated Acute CVA with infarct. sp TPA Continue neuro checks. Neurology input appreciated, CT shows continued evolution of left MCA infarct with slight mass effect and edema, and there is no hemorrhage - PRINCE showed hyperdynamic with ef of 75%, neither clot nor septal defect seen - MRA Brain shows near complete occlusion of M2 and M3 of the left MCA - Repeat CT scan done on 09/11, shows stable findings - carotid doppler negative - Echo shows preserved systolic function but does show some left ventricular diastolic dysfunction - continue asa and statin for secondary ppx Paroxysmal atrial fibrillation. On Metoprolol Persistent vegetative state This patient's needs placement at either hospice or SNF -She was denied for LTACH Nosocomial acquired aspiration pneumonia/sepsis/UTI She had completed a course of antibiotics. Being monitored off antibiotics Asthma/COPD exacerbation s/p trach Continue bronchodilators Acute Toxic Metabolic encephalopathy( improved). Multitifactorial, mostly secondary to evolution of CVA Hypertensive Emergency-stable Now on Metoprolol, Cozaar,Hydralazine, Clonidine patch. Bilateral pleural effusion, s/p right thoracentesis Paroxysmal atrial fibrillation with rapid ventricular rate, failed cardioversion Continue current medications, Not a candidate for anticoagulation secondary to anemia, thrombocytopenia, and massive CVA Hypokalemia/Hypomagnesemia/hypophosphatemia. Replete electrolytes as needed. Diabetes type 2. Continue sliding-scale regular insulin and Accu-Cheks. Hyperlipidemia. Continue statin Nutrition continue tube feeds Anemia requiring multiple transfusions/acute blood loss Has received total 13 units of PRBC this admission. Will continue to transfuse to keep Hemoglobin above 7 Disposition. Very poor prognosis. - Patient Problems (1) Acute respiratory failure with hypoxia Current Visit: Yes Status: Acute (2) Acute blood loss anemia Current Visit: Yes Status: Resolved (3) Acute CVA (cerebrovascular accident) Current Visit: Yes Status: Acute (4) Chronic renal insufficiency Current Visit: Yes Status: Acute Qualifiers: Chronic kidney disease stage: C (5) Uncontrolled hypertension Current Visit: Yes Status: Acute (6) Leukocytosis (leucocytosis) Current Visit: Yes Status: Acute Qualifiers: Leukocytosis type: leukemoid reaction Qualified Code(s): D72.823 - Leukemoid reaction (7) Dislodged gastrostomy tube Current Visit: Yes Status: Acute (8) Fungemia Current Visit: Yes Status: Resolved Subjective Date of service: 12/31/16 Principal diagnosis: Acute resp failure on MVS; S/P Acute CVA; Acute Encephalopathy; JUANITA Interval history: Patient is seen today for: Acute respiratory failure on MVS; S/P Acute CVA; Acute Encephalopathy; JUANITA on HD Seen and examined at bedside; 24hour events reviewed; nursing and respiratory care staff consulted; no adverse overnight events reported to me; remains on MVS ; s/p sacral wound debridement , AMS is persistent; still with NGT to LIS Seen and examined. Vitals, labs, medications, chart reviewed. On mechanical ventilatory support, continues to fail weaning trials Objective - Exam Narrative Exam: Patient is on mechanical ventilation, s/p trach. Vital signs as documented. Head exam is unremarkable. No scleral icterus . Neck is without jugular venous distension, or carotid bruits. Lungs are clear to auscultation. Cardiac exam reveals regular rate and Rhythm. First and second heart sounds normal. No murmurs, rubs or gallops. Abdominal exam reveals abscess draining from the PEG site, and multiple fistulas around the stomach. Extremities are non edematous and both femoral and pedal pulses are normal. Sacral decubitus ulcer. 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, not obeying commands, with grimace with painful stimulus Vital Signs - 12hr 12/30/16 12/30/16 12/31/16 23:45 23:50 00:00 Temperature 98.6 F Pulse Rate 112 H 112 H 109 H Pulse Rate [ Anterior Bilateral Throughout] Pulse Rate [ From Monitor] Pulse Rate [ 112 H Right Dorsalis Pedis] Respiratory 24 20 Rate Respiratory Rate [Anterior Bilateral Throughout] Blood Pressure 124/75 124/75 118/79 O2 Sat by Pulse 100 100 Oximetry O2 Sat by Pulse Oximetry [ Assessment] 12/31/16 12/31/16 12/31/16 00:04 00:05 00:15 Temperature Pulse Rate 100 H 102 H 95 H Pulse Rate [ Anterior Bilateral Throughout] Pulse Rate [ From Monitor] Pulse Rate [ Right Dorsalis Pedis] Respiratory 21 20 Rate Respiratory Rate [Anterior Bilateral Throughout] Blood Pressure 118/79 118/79 125/77 O2 Sat by Pulse 100 100 100 Oximetry O2 Sat by Pulse Oximetry [ Assessment] 12/31/16 12/31/16 12/31/16 00:30 00:45 01:00 Temperature Pulse Rate 94 H 92 H 94 H Pulse Rate [ Anterior Bilateral Throughout] Pulse Rate [ From Monitor] Pulse Rate [ Right Dorsalis Pedis] Respiratory 23 21 23 Rate Respiratory Rate [Anterior Bilateral Throughout] Blood Pressure 134/83 118/81 133/82 O2 Sat by Pulse 100 100 100 Oximetry O2 Sat by Pulse Oximetry [ Assessment] 12/31/16 12/31/16 12/31/16 01:15 01:30 01:45 Temperature Pulse Rate 94 H 94 H 96 H Pulse Rate [ Anterior Bilateral Throughout] Pulse Rate [ From Monitor] Pulse Rate [ Right Dorsalis Pedis] Respiratory 21 22 23 Rate Respiratory Rate [Anterior Bilateral Throughout] Blood Pressure 136/84 127/77 135/81 O2 Sat by Pulse 100 100 100 Oximetry O2 Sat by Pulse Oximetry [ Assessment] 12/31/16 12/31/16 12/31/16 02:00 02:12 02:15 Temperature Pulse Rate 96 H 101 H Pulse Rate [ 98 H Anterior Bilateral Throughout] Pulse Rate [ From Monitor] Pulse Rate [ Right Dorsalis Pedis] Respiratory 22 12 Rate Respiratory 12 Rate [Anterior Bilateral Throughout] Blood Pressure 135/81 137/83 O2 Sat by Pulse 100 99 Oximetry O2 Sat by Pulse 100 Oximetry [ Assessment] 12/31/16 12/31/16 12/31/16 02:21 02:31 02:45 Temperature Pulse Rate 101 H 102 H Pulse Rate [ 102 H Anterior Bilateral Throughout] Pulse Rate [ From Monitor] Pulse Rate [ Right Dorsalis Pedis] Respiratory 18 15 Rate Respiratory 17 Rate [Anterior Bilateral Throughout] Blood Pressure 127/82 127/82 O2 Sat by Pulse 98 98 Oximetry O2 Sat by Pulse Oximetry [ Assessment] 12/31/16 12/31/16 12/31/16 02:58 03:00 03:15 Temperature 97.5 F L Pulse Rate 102 H 96 H Pulse Rate [ Anterior Bilateral Throughout] Pulse Rate [ From Monitor] Pulse Rate [ Right Dorsalis Pedis] Respiratory 23 24 Rate Respiratory Rate [Anterior Bilateral Throughout] Blood Pressure 115/66 103/57 O2 Sat by Pulse 97 98 Oximetry O2 Sat by Pulse Oximetry [ Assessment] 12/31/16 12/31/16 12/31/16 03:30 03:45 04:00 Temperature Pulse Rate 95 H 94 H 95 H Pulse Rate [ Anterior Bilateral Throughout] Pulse Rate [ From Monitor] Pulse Rate [ 103 H Right Dorsalis Pedis] Respiratory 28 H 23 26 H Rate Respiratory Rate [Anterior Bilateral Throughout] Blood Pressure 99/66 92/62 108/69 O2 Sat by Pulse 100 100 100 Oximetry O2 Sat by Pulse Oximetry [ Assessment] 12/31/16 12/31/16 12/31/16 04:15 04:30 04:45 Temperature Pulse Rate 94 H 93 H 94 H Pulse Rate [ Anterior Bilateral Throughout] Pulse Rate [ From Monitor] Pulse Rate [ Right Dorsalis Pedis] Respiratory 27 H 21 24 Rate Respiratory Rate [Anterior Bilateral Throughout] Blood Pressure 111/67 114/67 116/68 O2 Sat by Pulse 100 100 100 Oximetry O2 Sat by Pulse Oximetry [ Assessment] 12/31/16 12/31/16 12/31/16 04:55 05:00 05:15 Temperature Pulse Rate 98 H 98 H 98 H Pulse Rate [ Anterior Bilateral Throughout] Pulse Rate [ From Monitor] Pulse Rate [ Right Dorsalis Pedis] Respiratory 25 H 25 H Rate Respiratory Rate [Anterior Bilateral Throughout] Blood Pressure 114/64 122/78 126/73 O2 Sat by Pulse 100 100 98 Oximetry O2 Sat by Pulse Oximetry [ Assessment] 12/31/16 12/31/16 12/31/16 05:30 05:45 06:00 Temperature Pulse Rate 100 H 100 H 97 H Pulse Rate [ Anterior Bilateral Throughout] Pulse Rate [ From Monitor] Pulse Rate [ Right Dorsalis Pedis] Respiratory 26 H 25 H 18 Rate Respiratory Rate [Anterior Bilateral Throughout] Blood Pressure 117/81 114/74 112/63 O2 Sat by Pulse 98 97 97 Oximetry O2 Sat by Pulse Oximetry [ Assessment] 12/31/16 12/31/16 12/31/16 06:15 06:30 06:45 Temperature Pulse Rate 101 H 99 H 99 H Pulse Rate [ Anterior Bilateral Throughout] Pulse Rate [ From Monitor] Pulse Rate [ Right Dorsalis Pedis] Respiratory 25 H 28 H 22 Rate Respiratory Rate [Anterior Bilateral Throughout] Blood Pressure 117/72 112/66 112/68 O2 Sat by Pulse 97 96 96 Oximetry O2 Sat by Pulse Oximetry [ Assessment] 12/31/16 12/31/16 12/31/16 06:49 06:50 06:52 Temperature Pulse Rate 116 H 96 H 94 H Pulse Rate [ Anterior Bilateral Throughout] Pulse Rate [ From Monitor] Pulse Rate [ Right Dorsalis Pedis] Respiratory Rate Respiratory Rate [Anterior Bilateral Throughout] Blood Pressure 132/84 112/68 112/68 O2 Sat by Pulse Oximetry O2 Sat by Pulse Oximetry [ Assessment] 12/31/16 12/31/16 12/31/16 07:00 07:15 07:19 Temperature Pulse Rate 98 H 105 H 94 H Pulse Rate [ Anterior Bilateral Throughout] Pulse Rate [ From Monitor] Pulse Rate [ Right Dorsalis Pedis] Respiratory 17 25 H Rate Respiratory Rate [Anterior Bilateral Throughout] Blood Pressure 109/60 125/84 125/84 O2 Sat by Pulse 100 100 Oximetry O2 Sat by Pulse Oximetry [ Assessment] 12/31/16 12/31/16 12/31/16 07:22 07:27 07:30 Temperature Pulse Rate 102 H Pulse Rate [ 98 H Anterior Bilateral Throughout] Pulse Rate [ From Monitor] Pulse Rate [ Right Dorsalis Pedis] Respiratory 15 Rate Respiratory 13 Rate [Anterior Bilateral Throughout] Blood Pressure 119/69 O2 Sat by Pulse 96 Oximetry O2 Sat by Pulse 100 Oximetry [ Assessment] 12/31/16 12/31/16 12/31/16 07:45 08:00 08:15 Temperature 97 F L Pulse Rate 104 H 104 H 105 H Pulse Rate [ Anterior Bilateral Throughout] Pulse Rate [ 104 H From Monitor] Pulse Rate [ Right Dorsalis Pedis] Respiratory 13 15 26 H Rate Respiratory Rate [Anterior Bilateral Throughout] Blood Pressure 113/68 109/72 115/65 O2 Sat by Pulse 97 98 99 Oximetry O2 Sat by Pulse Oximetry [ Assessment] 12/31/16 12/31/16 12/31/16 08:30 08:45 09:00 Temperature Pulse Rate 104 H 104 H 103 H Pulse Rate [ Anterior Bilateral Throughout] Pulse Rate [ From Monitor] Pulse Rate [ Right Dorsalis Pedis] Respiratory 25 H 25 H 25 H Rate Respiratory Rate [Anterior Bilateral Throughout] Blood Pressure 115/64 114/64 117/70 O2 Sat by Pulse 100 99 99 Oximetry O2 Sat by Pulse Oximetry [ Assessment] 12/31/16 12/31/16 12/31/16 09:12 09:15 09:30 Temperature Pulse Rate 103 H 105 H 104 H Pulse Rate [ Anterior Bilateral Throughout] Pulse Rate [ From Monitor] Pulse Rate [ Right Dorsalis Pedis] Respiratory 17 25 H Rate Respiratory Rate [Anterior Bilateral Throughout] Blood Pressure 117/70 122/68 109/63 O2 Sat by Pulse 98 100 Oximetry O2 Sat by Pulse Oximetry [ Assessment] 12/31/16 12/31/16 09:45 10:00 Temperature Pulse Rate 101 H 101 H Pulse Rate [ Anterior Bilateral Throughout] Pulse Rate [ From Monitor] Pulse Rate [ Right Dorsalis Pedis] Respiratory 26 H 25 H Rate Respiratory Rate [Anterior Bilateral Throughout] Blood Pressure 101/58 100/56 O2 Sat by Pulse 99 99 Oximetry O2 Sat by Pulse Oximetry [ Assessment] Constitutional: appears uncomfortable, other (not tracking) Eyes: non-icteric, other (tracheostomy tube in midline of neck) ENT: oropharynx moist, oropharyngeal exudate pre Neck: supple, no lymphadenopathy, no JVD, other (no thyromegaly) Effort: mildly labored Ascultation: Bilateral: clear, diminished breath sounds (bases), rales, rhonchi (and referred upper airway sounds) Percussion: Bilateral: not dull, dull (bases) Cardiovascular: regular rate and rhythm, other (no rubs / murmurs) Gastrointestinal: hypoactive bowel sounds, soft, non-tender, non-distended, other (RLQ & LUQ stomas with colostomy bags) Integumentary: decubitus ulcer (sacral; stage 4 s/p surgical debridement), other (no rash; no cellulitis; poor turgor) Extremities: no cyanosis, pulses normal, no ischemia or petechiae, edema (1+ bilaterally) Neurologic: pupils equal and round, unable to assess, other (encephalopathic) Psychiatric: other (unable to assess) CBC and BMP: 12/30/16 04:20 01/01/17 05:00 ABG, PT/INR, D-dimer: ABG POC ABG pH 7.503 (7.35-7.45) H 12/19/16 09:36 ABG pH 7.450 pH Units (7.350-7.450) 12/05/16 Unknown POC ABG pCO2 30.1 (35-45) L 12/19/16 09:36 ABG pCO2 29.6 mm Hg 12/05/16 Unknown POC ABG pO2 85 (80-105) 12/19/16 09:36 ABG pO2 75.2 mm Hg (80.0-90.0) L 12/05/16 Unknown POC ABG HCO3 23.6 12/19/16 09:36 POC ABG Total CO2 25 12/19/16 09:36 POC ABG O2 Sat 97 12/19/16 09:36 ABG O2 Saturation 96.8 % (95.0-99.0) 12/05/16 Unknown PT/INR, D-dimer PT 16.1 Sec. (12.2-14.9) H 12/28/16 08:30 INR 1.23 (0.87-1.13) H 12/28/16 08:30 Abnormal lab findings: Abnormal Labs 09/03/16 09/03/16 09/03/16 12:12 15:07 16:20 WBC RBC Hgb Hct MCV MCH MCHC RDW Plt Count Lymph % (Auto) [place] % (Auto) Lymph # [place] # Baso # Seg Neutrophils % Seg Neuts % (Manual) Lymphocytes % (Manual) Monocytes % (Manual) Eosinophils % (Manual) Basophils % (Manual) Nucleated RBC % Seg Neutrophils # Seg Neutrophils # Man Lymphocytes # (Manual) Monocytes # (Manual) Eosinophils # (Manual) Basophils # (Manual) PT INR Fibrinogen dRVVT Confirm Interp Factor V Activity POC ABG pH 7.452 H POC ABG pCO2 POC ABG pO2 ABG pO2 ABG HCO3 ABG Base Excess ABG Hemoglobin Oxyhemoglobin Sodium Potassium Chloride Carbon Dioxide BUN Creatinine Glucose POC Glucose 178 H Lactic Acid Calcium Phosphorus 2.20 L Magnesium 1.60 L Direct Bilirubin AST ALT Alkaline Phosphatase Lactate Dehydrogenase Troponin T C-Reactive Protein Total Protein Albumin Prealbumin Triglycerides Cholesterol LDL Cholesterol Direct HDL Cholesterol Urine pH Urine WBC (Auto) Urine Creatinine Urine Total Protein Fluid Total Protein Vancomycin Trough Rheumatoid Factor Complement C4 Miscellaneous Test Crossmatch 09/03/16 09/03/16 09/03/16 17:57 17:58 23:50 WBC RBC Hgb Hct MCV MCH MCHC RDW Plt Count Lymph % (Auto) [place] % (Auto) Lymph # [place] # Baso # Seg Neutrophils % Seg Neuts % (Manual) Lymphocytes % (Manual) Monocytes % (Manual) Eosinophils % (Manual) Basophils % (Manual) Nucleated RBC % Seg Neutrophils # Seg Neutrophils # Man Lymphocytes # (Manual) Monocytes # (Manual) Eosinophils # (Manual) Basophils # (Manual) PT INR Fibrinogen dRVVT Confirm Interp Factor V Activity POC ABG pH POC ABG pCO2 POC ABG pO2 ABG pO2 ABG HCO3 ABG Base Excess ABG Hemoglobin Oxyhemoglobin Sodium Potassium Chloride Carbon Dioxide BUN Creatinine Glucose POC Glucose 162 H 145 H Lactic Acid Calcium Phosphorus 2.30 L Magnesium Direct Bilirubin AST ALT Alkaline Phosphatase Lactate Dehydrogenase Troponin T C-Reactive Protein Total Protein Albumin Prealbumin Triglycerides Cholesterol LDL Cholesterol Direct HDL Cholesterol Urine pH Urine WBC (Auto) Urine Creatinine Urine Total Protein Fluid Total Protein Vancomycin Trough Rheumatoid Factor Complement C4 Miscellaneous Test Crossmatch 09/04/16 09/04/16 09/04/16 03:31 03:31 05:42 WBC RBC Hgb 9.7 L D Hct MCV 72 L MCH 23 L MCHC RDW 17.5 H Plt Count Lymph % (Auto) 11.1 L [place] % (Auto) Lymph # [place] # Baso # Seg Neutrophils % 84.3 H Seg Neuts % (Manual) Lymphocytes % (Manual) Monocytes % (Manual) Eosinophils % (Manual) Basophils % (Manual) Nucleated RBC % Seg Neutrophils # 8.9 H Seg Neutrophils # Man Lymphocytes # (Manual) Monocytes # (Manual) Eosinophils # (Manual) Basophils # (Manual) PT INR Fibrinogen dRVVT Confirm Interp Factor V Activity POC ABG pH POC ABG pCO2 POC ABG pO2 ABG pO2 ABG HCO3 ABG Base Excess ABG Hemoglobin Oxyhemoglobin Sodium 135 L Potassium 2.9 L* Chloride 97.2 L Carbon Dioxide 19 L BUN Creatinine 1.7 H Glucose 170 H POC Glucose 152 H Lactic Acid Calcium Phosphorus Magnesium Direct Bilirubin AST ALT Alkaline Phosphatase Lactate Dehydrogenase Troponin T C-Reactive Protein Total Protein Albumin Prealbumin Triglycerides 160 H Cholesterol LDL Cholesterol Direct HDL Cholesterol 31 L Urine pH Urine WBC (Auto) Urine Creatinine Urine Total Protein Fluid Total Protein Vancomycin Trough Rheumatoid Factor Complement C4 Miscellaneous Test Crossmatch 09/04/16 09/04/16 09/04/16 11:34 17:46 23:29 WBC RBC Hgb Hct MCV MCH MCHC RDW Plt Count Lymph % (Auto) [place] % (Auto) Lymph # [place] # Baso # Seg Neutrophils % Seg Neuts % (Manual) Lymphocytes % (Manual) Monocytes % (Manual) Eosinophils % (Manual) Basophils % (Manual) Nucleated RBC % Seg Neutrophils # Seg Neutrophils # Man Lymphocytes # (Manual) Monocytes # (Manual) Eosinophils # (Manual) Basophils # (Manual) PT INR Fibrinogen dRVVT Confirm Interp Factor V Activity POC ABG pH POC ABG pCO2 POC ABG pO2 ABG pO2 ABG HCO3 ABG Base Excess ABG Hemoglobin Oxyhemoglobin Sodium Potassium Chloride Carbon Dioxide BUN Creatinine Glucose POC Glucose 165 H 210 H 139 H Lactic Acid Calcium Phosphorus Magnesium Direct Bilirubin AST ALT Alkaline Phosphatase Lactate Dehydrogenase Troponin T C-Reactive Protein Total Protein Albumin Prealbumin Triglycerides Cholesterol LDL Cholesterol Direct HDL Cholesterol Urine pH Urine WBC (Auto) Urine Creatinine Urine Total Protein Fluid Total Protein Vancomycin Trough Rheumatoid Factor Complement C4 Miscellaneous Test Crossmatch 09/05/16 09/05/16 09/05/16 04:05 04:05 05:38 WBC RBC Hgb Hct MCV 76 L D MCH 23 L MCHC RDW 17.8 H Plt Count Lymph % (Auto) [place] % (Auto) Lymph # [place] # Baso # Seg Neutrophils % Seg Neuts % (Manual) Lymphocytes % (Manual) Monocytes % (Manual) Eosinophils % (Manual) Basophils % (Manual) Nucleated RBC % Seg Neutrophils # Seg Neutrophils # Man Lymphocytes # (Manual) Monocytes # (Manual) Eosinophils # (Manual) Basophils # (Manual) PT INR Fibrinogen dRVVT Confirm Interp Factor V Activity POC ABG pH POC ABG pCO2 POC ABG pO2 ABG pO2 ABG HCO3 ABG Base Excess ABG Hemoglobin Oxyhemoglobin Sodium 134 L Potassium Chloride Carbon Dioxide 18 L BUN Creatinine 1.8 H Glucose 192 H POC Glucose 175 H Lactic Acid Calcium Phosphorus Magnesium Direct Bilirubin AST ALT Alkaline Phosphatase Lactate Dehydrogenase Troponin T C-Reactive Protein Total Protein Albumin Prealbumin Triglycerides Cholesterol LDL Cholesterol Direct HDL Cholesterol Urine pH Urine WBC (Auto) Urine Creatinine Urine Total Protein Fluid Total Protein Vancomycin Trough Rheumatoid Factor Complement C4 Miscellaneous Test Crossmatch 09/05/16 09/05/16 09/05/16 11:38 17:48 23:22 WBC RBC Hgb Hct MCV MCH MCHC RDW Plt Count Lymph % (Auto) [place] % (Auto) Lymph # [place] # Baso # Seg Neutrophils % Seg Neuts % (Manual) Lymphocytes % (Manual) Monocytes % (Manual) Eosinophils % (Manual) Basophils % (Manual) Nucleated RBC % Seg Neutrophils # Seg Neutrophils # Man Lymphocytes # (Manual) Monocytes # (Manual) Eosinophils # (Manual) Basophils # (Manual) PT INR Fibrinogen dRVVT Confirm Interp Factor V Activity POC ABG pH POC ABG pCO2 POC ABG pO2 ABG pO2 ABG HCO3 ABG Base Excess ABG Hemoglobin Oxyhemoglobin Sodium Potassium Chloride Carbon Dioxide BUN Creatinine Glucose POC Glucose 164 H 186 H 195 H Lactic Acid Calcium Phosphorus Magnesium Direct Bilirubin AST ALT Alkaline Phosphatase Lactate Dehydrogenase Troponin T C-Reactive Protein Total Protein Albumin Prealbumin Triglycerides Cholesterol LDL Cholesterol Direct HDL Cholesterol Urine pH Urine WBC (Auto) Urine Creatinine Urine Total Protein Fluid Total Protein Vancomycin Trough Rheumatoid Factor Complement C4 Miscellaneous Test Crossmatch 09/06/16 09/06/16 09/06/16 04:12 05:59 07:32 WBC RBC Hgb Hct MCV MCH MCHC RDW Plt Count Lymph % (Auto) [place] % (Auto) Lymph # [place] # Baso # Seg Neutrophils % Seg Neuts % (Manual) Lymphocytes % (Manual) Monocytes % (Manual) Eosinophils % (Manual) Basophils % (Manual) Nucleated RBC % Seg Neutrophils # Seg Neutrophils # Man Lymphocytes # (Manual) Monocytes # (Manual) Eosinophils # (Manual) Basophils # (Manual) PT INR Fibrinogen dRVVT Confirm Interp Factor V Activity POC ABG pH 7.514 H POC ABG pCO2 29.1 L POC ABG pO2 72 L ABG pO2 ABG HCO3 ABG Base Excess ABG Hemoglobin Oxyhemoglobin Sodium 133 L Potassium 3.4 L Chloride 94.9 L Carbon Dioxide 19 L BUN 30 H Creatinine 2.1 H Glucose 139 H POC Glucose 146 H Lactic Acid Calcium Phosphorus Magnesium Direct Bilirubin AST ALT Alkaline Phosphatase Lactate Dehydrogenase Troponin T C-Reactive Protein Total Protein Albumin Prealbumin Triglycerides Cholesterol LDL Cholesterol Direct HDL Cholesterol Urine pH Urine WBC (Auto) Urine Creatinine Urine Total Protein Fluid Total Protein Vancomycin Trough Rheumatoid Factor Complement C4 Miscellaneous Test Crossmatch 09/06/16 09/06/16 09/06/16 11:57 17:58 19:02 WBC RBC Hgb Hct MCV MCH MCHC RDW Plt Count Lymph % (Auto) [place] % (Auto) Lymph # [place] # Baso # Seg Neutrophils % Seg Neuts % (Manual) Lymphocytes % (Manual) Monocytes % (Manual) Eosinophils % (Manual) Basophils % (Manual) Nucleated RBC % Seg Neutrophils # Seg Neutrophils # Man Lymphocytes # (Manual) Monocytes # (Manual) Eosinophils # (Manual) Basophils # (Manual) PT INR Fibrinogen dRVVT Confirm Interp Factor V Activity POC ABG pH 7.465 H POC ABG pCO2 32.0 L POC ABG pO2 ABG pO2 ABG HCO3 ABG Base Excess ABG Hemoglobin Oxyhemoglobin Sodium Potassium Chloride Carbon Dioxide BUN Creatinine Glucose POC Glucose 165 H 160 H Lactic Acid Calcium Phosphorus Magnesium Direct Bilirubin AST ALT Alkaline Phosphatase Lactate Dehydrogenase Troponin T C-Reactive Protein Total Protein Albumin Prealbumin Triglycerides Cholesterol LDL Cholesterol Direct HDL Cholesterol Urine pH Urine WBC (Auto) Urine Creatinine Urine Total Protein Fluid Total Protein Vancomycin Trough Rheumatoid Factor Complement C4 Miscellaneous Test Crossmatch 09/06/16 09/07/16 09/07/16 23:45 02:47 02:47 WBC RBC Hgb Hct MCV MCH MCHC RDW Plt Count Lymph % (Auto) [place] % (Auto) Lymph # [place] # Baso # Seg Neutrophils % Seg Neuts % (Manual) Lymphocytes % (Manual) Monocytes % (Manual) Eosinophils % (Manual) Basophils % (Manual) Nucleated RBC % Seg Neutrophils # Seg Neutrophils # Man Lymphocytes # (Manual) Monocytes # (Manual) Eosinophils # (Manual) Basophils # (Manual) PT INR Fibrinogen dRVVT Confirm Interp Factor V Activity POC ABG pH POC ABG pCO2 POC ABG pO2 ABG pO2 ABG HCO3 ABG Base Excess ABG Hemoglobin Oxyhemoglobin Sodium Potassium Chloride Carbon Dioxide BUN Creatinine Glucose POC Glucose 204 H Lactic Acid Calcium Phosphorus Magnesium Direct Bilirubin AST ALT Alkaline Phosphatase Lactate Dehydrogenase Troponin T C-Reactive Protein Total Protein Albumin Prealbumin Triglycerides Cholesterol LDL Cholesterol Direct HDL Cholesterol Urine pH Urine WBC (Auto) 68.0 H Urine Creatinine 106.1 H Urine Total Protein Fluid Total Protein Vancomycin Trough Rheumatoid Factor Complement C4 Miscellaneous Test Crossmatch 09/07/16 09/07/16 09/07/16 04:50 06:19 06:39 WBC RBC Hgb Hct MCV MCH MCHC RDW Plt Count Lymph % (Auto) [place] % (Auto) Lymph # [place] # Baso # Seg Neutrophils % Seg Neuts % (Manual) Lymphocytes % (Manual) Monocytes % (Manual) Eosinophils % (Manual) Basophils % (Manual) Nucleated RBC % Seg Neutrophils # Seg Neutrophils # Man Lymphocytes # (Manual) Monocytes # (Manual) Eosinophils # (Manual) Basophils # (Manual) PT INR Fibrinogen dRVVT Confirm Interp Factor V Activity POC ABG pH 7.457 H POC ABG pCO2 32.1 L POC ABG pO2 76 L ABG pO2 ABG HCO3 ABG Base Excess ABG Hemoglobin Oxyhemoglobin Sodium 132 L Potassium Chloride 94.7 L Carbon Dioxide BUN 53 H Creatinine 2.9 H Glucose 151 H POC Glucose 149 H Lactic Acid Calcium Phosphorus Magnesium Direct Bilirubin AST ALT Alkaline Phosphatase Lactate Dehydrogenase Troponin T C-Reactive Protein Total Protein Albumin Prealbumin Triglycerides Cholesterol LDL Cholesterol Direct HDL Cholesterol Urine pH Urine WBC (Auto) Urine Creatinine Urine Total Protein Fluid Total Protein Vancomycin Trough Rheumatoid Factor Complement C4 Miscellaneous Test Crossmatch 09/07/16 09/07/16 09/07/16 09:20 11:43 11:43 WBC 19.4 H RBC Hgb 8.3 L Hct 26.4 L D MCV 72 L D MCH 22 L MCHC RDW 17.9 H Plt Count Lymph % (Auto) 8.5 L [place] % (Auto) Lymph # [place] # 1.0 H Baso # Seg Neutrophils % 85.8 H Seg Neuts % (Manual) Lymphocytes % (Manual) Monocytes % (Manual) Eosinophils % (Manual) Basophils % (Manual) Nucleated RBC % Seg Neutrophils # 16.6 H Seg Neutrophils # Man Lymphocytes # (Manual) Monocytes # (Manual) Eosinophils # (Manual) Basophils # (Manual) PT INR Fibrinogen dRVVT Confirm Interp Factor V Activity POC ABG pH POC ABG pCO2 POC ABG pO2 ABG pO2 ABG HCO3 ABG Base Excess ABG Hemoglobin Oxyhemoglobin Sodium 134 L Potassium Chloride 97.2 L Carbon Dioxide 20 L BUN 58 H Creatinine 2.9 H Glucose 147 H POC Glucose Lactic Acid Calcium Phosphorus 2.40 L Magnesium 2.40 H Direct Bilirubin AST ALT Alkaline Phosphatase Lactate Dehydrogenase Troponin T C-Reactive Protein Total Protein 5.8 L Albumin 2.2 L Prealbumin Triglycerides Cholesterol LDL Cholesterol Direct HDL Cholesterol Urine pH Urine WBC (Auto) Urine Creatinine Urine Total Protein Fluid Total Protein Vancomycin Trough Rheumatoid Factor Complement C4 58 H Miscellaneous Test Crossmatch 09/07/16 09/07/16 09/07/16 11:50 16:00 17:31 WBC RBC Hgb Hct MCV MCH MCHC RDW Plt Count Lymph % (Auto) [place] % (Auto) Lymph # [place] # Baso # Seg Neutrophils % Seg Neuts % (Manual) Lymphocytes % (Manual) Monocytes % (Manual) Eosinophils % (Manual) Basophils % (Manual) Nucleated RBC % Seg Neutrophils # Seg Neutrophils # Man Lymphocytes # (Manual) Monocytes # (Manual) Eosinophils # (Manual) Basophils # (Manual) PT INR Fibrinogen dRVVT Confirm Interp Factor V Activity POC ABG pH POC ABG pCO2 POC ABG pO2 158 H ABG pO2 ABG HCO3 ABG Base Excess ABG Hemoglobin Oxyhemoglobin Sodium Potassium Chloride Carbon Dioxide BUN Creatinine Glucose POC Glucose 175 H Lactic Acid Calcium Phosphorus Magnesium Direct Bilirubin AST ALT Alkaline Phosphatase Lactate Dehydrogenase Troponin T C-Reactive Protein Total Protein Albumin Prealbumin Triglycerides Cholesterol LDL Cholesterol Direct HDL Cholesterol Urine pH Urine WBC (Auto) Urine Creatinine 66.3 H Urine Total Protein Fluid Total Protein Vancomycin Trough Rheumatoid Factor Complement C4 Miscellaneous Test Crossmatch 09/07/16 09/08/16 09/08/16 23:50 05:46 06:18 WBC 17.8 H RBC 3.58 L Hgb 8.1 L Hct 25.5 L MCV 71 L MCH 23 L MCHC RDW 18.4 H Plt Count Lymph % (Auto) [place] % (Auto) Lymph # [place] # Baso # Seg Neutrophils % Seg Neuts % (Manual) 92.0 H Lymphocytes % (Manual) 6.0 L Monocytes % (Manual) Eosinophils % (Manual) Basophils % (Manual) Nucleated RBC % Seg Neutrophils # Seg Neutrophils # Man 16.4 H Lymphocytes # (Manual) 1.1 L Monocytes # (Manual) Eosinophils # (Manual) Basophils # (Manual) PT INR Fibrinogen dRVVT Confirm Interp Factor V Activity POC ABG pH POC ABG pCO2 34.3 L POC ABG pO2 71 L ABG pO2 ABG HCO3 ABG Base Excess ABG Hemoglobin Oxyhemoglobin Sodium Potassium Chloride Carbon Dioxide BUN Creatinine Glucose POC Glucose 216 H Lactic Acid Calcium Phosphorus Magnesium Direct Bilirubin AST ALT Alkaline Phosphatase Lactate Dehydrogenase Troponin T C-Reactive Protein Total Protein Albumin Prealbumin Triglycerides Cholesterol LDL Cholesterol Direct HDL Cholesterol Urine pH Urine WBC (Auto) Urine Creatinine Urine Total Protein Fluid Total Protein Vancomycin Trough Rheumatoid Factor Complement C4 Miscellaneous Test Crossmatch 09/08/16 09/08/16 09/08/16 06:18 06:51 10:55 WBC RBC Hgb Hct MCV MCH MCHC RDW Plt Count Lymph % (Auto) [place] % (Auto) Lymph # [place] # Baso # Seg Neutrophils % Seg Neuts % (Manual) Lymphocytes % (Manual) Monocytes % (Manual) Eosinophils % (Manual) Basophils % (Manual) Nucleated RBC % Seg Neutrophils # Seg Neutrophils # Man Lymphocytes # (Manual) Monocytes # (Manual) Eosinophils # (Manual) Basophils # (Manual) PT INR Fibrinogen dRVVT Confirm Interp Factor V Activity POC ABG pH POC ABG pCO2 POC ABG pO2 ABG pO2 ABG HCO3 ABG Base Excess ABG Hemoglobin Oxyhemoglobin Sodium 133 L Potassium Chloride 96.9 L Carbon Dioxide 20 L BUN 63 H Creatinine 2.7 H Glucose 195 H POC Glucose 204 H 169 H Lactic Acid Calcium Phosphorus Magnesium Direct Bilirubin AST ALT Alkaline Phosphatase Lactate Dehydrogenase Troponin T C-Reactive Protein Total Protein Albumin Prealbumin Triglycerides Cholesterol LDL Cholesterol Direct HDL Cholesterol Urine pH Urine WBC (Auto) Urine Creatinine Urine Total Protein Fluid Total Protein Vancomycin Trough Rheumatoid Factor Complement C4 Miscellaneous Test Crossmatch 09/08/16 09/08/16 09/08/16 11:48 11:48 11:48 WBC RBC Hgb Hct MCV MCH MCHC RDW Plt Count Lymph % (Auto) [place] % (Auto) Lymph # [place] # Baso # Seg Neutrophils % Seg Neuts % (Manual) Lymphocytes % (Manual) Monocytes % (Manual) Eosinophils % (Manual) Basophils % (Manual) Nucleated RBC % Seg Neutrophils # Seg Neutrophils # Man Lymphocytes # (Manual) Monocytes # (Manual) Eosinophils # (Manual) Basophils # (Manual) PT INR Fibrinogen 750 H dRVVT Confirm Interp Factor V Activity POC ABG pH POC ABG pCO2 POC ABG pO2 ABG pO2 ABG HCO3 ABG Base Excess ABG Hemoglobin Oxyhemoglobin Sodium Potassium Chloride Carbon Dioxide BUN Creatinine Glucose POC Glucose Lactic Acid Calcium Phosphorus Magnesium Direct Bilirubin AST ALT Alkaline Phosphatase Lactate Dehydrogenase Troponin T C-Reactive Protein 15.70 H Total Protein Albumin Prealbumin Triglycerides Cholesterol LDL Cholesterol Direct HDL Cholesterol Urine pH Urine WBC (Auto) Urine Creatinine Urine Total Protein Fluid Total Protein Vancomycin Trough Rheumatoid Factor 24 H Complement C4 Miscellaneous Test Crossmatch 09/08/16 09/08/16 09/09/16 15:35 18:25 00:24 WBC RBC Hgb Hct MCV MCH MCHC RDW Plt Count Lymph % (Auto) [place] % (Auto) Lymph # [place] # Baso # Seg Neutrophils % Seg Neuts % (Manual) Lymphocytes % (Manual) Monocytes % (Manual) Eosinophils % (Manual) Basophils % (Manual) Nucleated RBC % Seg Neutrophils # Seg Neutrophils # Man Lymphocytes # (Manual) Monocytes # (Manual) Eosinophils # (Manual) Basophils # (Manual) PT INR Fibrinogen dRVVT Confirm Interp Factor V Activity 182 H POC ABG pH POC ABG pCO2 POC ABG pO2 ABG pO2 ABG HCO3 ABG Base Excess ABG Hemoglobin Oxyhemoglobin Sodium Potassium Chloride Carbon Dioxide BUN Creatinine Glucose POC Glucose 184 H 216 H Lactic Acid Calcium Phosphorus Magnesium Direct Bilirubin AST ALT Alkaline Phosphatase Lactate Dehydrogenase Troponin T C-Reactive Protein Total Protein Albumin Prealbumin Triglycerides Cholesterol LDL Cholesterol Direct HDL Cholesterol Urine pH Urine WBC (Auto) Urine Creatinine Urine Total Protein Fluid Total Protein Vancomycin Trough Rheumatoid Factor Complement C4 Miscellaneous Test Crossmatch 09/09/16 09/09/16 09/09/16 03:00 03:00 04:04 WBC 27.9 H RBC Hgb 8.7 L Hct 28.1 L MCV 72 L MCH 22 L MCHC RDW 18.4 H Plt Count 485 H Lymph % (Auto) [place] % (Auto) Lymph # [place] # Baso # Seg Neutrophils % Seg Neuts % (Manual) 77.0 H Lymphocytes % (Manual) 9.0 L Monocytes % (Manual) Eosinophils % (Manual) Basophils % (Manual) Nucleated RBC % Seg Neutrophils # Seg Neutrophils # Man 21.5 H Lymphocytes # (Manual) Monocytes # (Manual) 2.0 H Eosinophils # (Manual) Basophils # (Manual) PT INR Fibrinogen dRVVT Confirm Interp Factor V Activity POC ABG pH POC ABG pCO2 POC ABG pO2 121 H ABG pO2 ABG HCO3 ABG Base Excess ABG Hemoglobin Oxyhemoglobin Sodium 135 L Potassium Chloride 96.3 L Carbon Dioxide 21 L BUN 83 H Creatinine 3.0 H Glucose 135 H POC Glucose Lactic Acid Calcium Phosphorus Magnesium Direct Bilirubin AST ALT Alkaline Phosphatase Lactate Dehydrogenase Troponin T C-Reactive Protein Total Protein Albumin Prealbumin Triglycerides Cholesterol LDL Cholesterol Direct HDL Cholesterol Urine pH Urine WBC (Auto) Urine Creatinine Urine Total Protein Fluid Total Protein Vancomycin Trough Rheumatoid Factor Complement C4 Miscellaneous Test Crossmatch 09/09/16 09/09/16 09/09/16 05:41 11:55 14:13 WBC RBC Hgb Hct MCV MCH MCHC RDW Plt Count Lymph % (Auto) [place] % (Auto) Lymph # [place] # Baso # Seg Neutrophils % Seg Neuts % (Manual) Lymphocytes % (Manual) Monocytes % (Manual) Eosinophils % (Manual) Basophils % (Manual) Nucleated RBC % Seg Neutrophils # Seg Neutrophils # Man Lymphocytes # (Manual) Monocytes # (Manual) Eosinophils # (Manual) Basophils # (Manual) PT INR Fibrinogen dRVVT Confirm Interp Factor V Activity POC ABG pH POC ABG pCO2 POC ABG pO2 ABG pO2 ABG HCO3 ABG Base Excess ABG Hemoglobin Oxyhemoglobin Sodium Potassium Chloride Carbon Dioxide BUN Creatinine Glucose POC Glucose 155 H 186 H Lactic Acid Calcium Phosphorus Magnesium Direct Bilirubin AST ALT Alkaline Phosphatase Lactate Dehydrogenase Troponin T C-Reactive Protein Total Protein Albumin Prealbumin Triglycerides Cholesterol LDL Cholesterol Direct HDL Cholesterol Urine pH Urine WBC (Auto) 25.0 H Urine Creatinine Urine Total Protein Fluid Total Protein Vancomycin Trough Rheumatoid Factor Complement C4 Miscellaneous Test Crossmatch 09/09/16 09/09/16 09/10/16 17:33 23:13 05:09 WBC RBC Hgb Hct MCV MCH MCHC RDW Plt Count Lymph % (Auto) [place] % (Auto) Lymph # [place] # Baso # Seg Neutrophils % Seg Neuts % (Manual) Lymphocytes % (Manual) Monocytes % (Manual) Eosinophils % (Manual) Basophils % (Manual) Nucleated RBC % Seg Neutrophils # Seg Neutrophils # Man Lymphocytes # (Manual) Monocytes # (Manual) Eosinophils # (Manual) Basophils # (Manual) PT INR Fibrinogen dRVVT Confirm Interp Factor V Activity POC ABG pH POC ABG pCO2 POC ABG pO2 74 L ABG pO2 ABG HCO3 ABG Base Excess ABG Hemoglobin Oxyhemoglobin Sodium Potassium Chloride Carbon Dioxide BUN Creatinine Glucose POC Glucose 211 H 215 H Lactic Acid Calcium Phosphorus Magnesium Direct Bilirubin AST ALT Alkaline Phosphatase Lactate Dehydrogenase Troponin T C-Reactive Protein Total Protein Albumin Prealbumin Triglycerides Cholesterol LDL Cholesterol Direct HDL Cholesterol Urine pH Urine WBC (Auto) Urine Creatinine Urine Total Protein Fluid Total Protein Vancomycin Trough Rheumatoid Factor Complement C4 Miscellaneous Test Crossmatch 09/10/16 09/10/16 09/10/16 05:17 05:17 11:31 WBC 15.8 H RBC 3.25 L Hgb 7.3 L Hct 22.9 L MCV 71 L MCH 23 L MCHC RDW 18.4 H Plt Count Lymph % (Auto) [place] % (Auto) Lymph # [place] # Baso # Seg Neutrophils % Seg Neuts % (Manual) 91.0 H Lymphocytes % (Manual) 4.0 L Monocytes % (Manual) Eosinophils % (Manual) Basophils % (Manual) Nucleated RBC % Seg Neutrophils # Seg Neutrophils # Man 14.4 H Lymphocytes # (Manual) 0.6 L Monocytes # (Manual) Eosinophils # (Manual) Basophils # (Manual) PT INR Fibrinogen dRVVT Confirm Interp Factor V Activity POC ABG pH POC ABG pCO2 POC ABG pO2 ABG pO2 ABG HCO3 ABG Base Excess ABG Hemoglobin Oxyhemoglobin Sodium Potassium Chloride Carbon Dioxide 21 L BUN 93 H Creatinine 2.9 H Glucose 146 H POC Glucose 188 H Lactic Acid Calcium 8.1 L Phosphorus Magnesium Direct Bilirubin AST ALT Alkaline Phosphatase Lactate Dehydrogenase Troponin T C-Reactive Protein Total Protein Albumin Prealbumin Triglycerides Cholesterol LDL Cholesterol Direct HDL Cholesterol Urine pH Urine WBC (Auto) Urine Creatinine Urine Total Protein Fluid Total Protein Vancomycin Trough Rheumatoid Factor Complement C4 Miscellaneous Test Crossmatch 09/10/16 09/10/16 09/10/16 13:17 17:20 23:32 WBC RBC Hgb Hct MCV MCH MCHC RDW Plt Count Lymph % (Auto) [place] % (Auto) Lymph # [place] # Baso # Seg Neutrophils % Seg Neuts % (Manual) Lymphocytes % (Manual) Monocytes % (Manual) Eosinophils % (Manual) Basophils % (Manual) Nucleated RBC % Seg Neutrophils # Seg Neutrophils # Man Lymphocytes # (Manual) Monocytes # (Manual) Eosinophils # (Manual) Basophils # (Manual) PT INR Fibrinogen dRVVT Confirm Interp Factor V Activity POC ABG pH POC ABG pCO2 POC ABG pO2 ABG pO2 ABG HCO3 ABG Base Excess ABG Hemoglobin Oxyhemoglobin Sodium Potassium Chloride Carbon Dioxide BUN Creatinine Glucose POC Glucose 199 H 186 H Lactic Acid Calcium Phosphorus Magnesium Direct Bilirubin AST ALT Alkaline Phosphatase Lactate Dehydrogenase Troponin T C-Reactive Protein Total Protein Albumin Prealbumin Triglycerides Cholesterol LDL Cholesterol Direct HDL Cholesterol Urine pH Urine WBC (Auto) Urine Creatinine Urine Total Protein Fluid Total Protein Vancomycin Trough Rheumatoid Factor Complement C4 Miscellaneous Test Crossmatch See Detail 09/11/16 09/11/16 09/11/16 05:10 05:10 05:17 WBC 28.4 H RBC Hgb 9.2 L Hct 29.3 L D MCV 73 L MCH 23 L MCHC RDW 18.9 H Plt Count 452 H Lymph % (Auto) [place] % (Auto) Lymph # [place] # Baso # Seg Neutrophils % Seg Neuts % (Manual) 89.5 H Lymphocytes % (Manual) 2.0 L Monocytes % (Manual) Eosinophils % (Manual) Basophils % (Manual) Nucleated RBC % Seg Neutrophils # Seg Neutrophils # Man 25.4 H Lymphocytes # (Manual) 0.6 L Monocytes # (Manual) 1.3 H Eosinophils # (Manual) Basophils # (Manual) PT INR Fibrinogen dRVVT Confirm Interp Factor V Activity POC ABG pH POC ABG pCO2 POC ABG pO2 ABG pO2 ABG HCO3 ABG Base Excess ABG Hemoglobin Oxyhemoglobin Sodium 136 L Potassium Chloride Carbon Dioxide 18 L BUN 107 H Creatinine 2.6 H Glucose 187 H POC Glucose 230 H Lactic Acid Calcium 8.3 L Phosphorus Magnesium Direct Bilirubin AST ALT Alkaline Phosphatase Lactate Dehydrogenase Troponin T C-Reactive Protein Total Protein Albumin Prealbumin Triglycerides Cholesterol LDL Cholesterol Direct HDL Cholesterol Urine pH Urine WBC (Auto) Urine Creatinine Urine Total Protein Fluid Total Protein Vancomycin Trough Rheumatoid Factor Complement C4 Miscellaneous Test Crossmatch 09/11/16 09/11/16 09/11/16 05:55 12:02 17:32 WBC RBC Hgb Hct MCV MCH MCHC RDW Plt Count Lymph % (Auto) [place] % (Auto) Lymph # [place] # Baso # Seg Neutrophils % Seg Neuts % (Manual) Lymphocytes % (Manual) Monocytes % (Manual) Eosinophils % (Manual) Basophils % (Manual) Nucleated RBC % Seg Neutrophils # Seg Neutrophils # Man Lymphocytes # (Manual) Monocytes # (Manual) Eosinophils # (Manual) Basophils # (Manual) PT INR Fibrinogen dRVVT Confirm Interp Factor V Activity POC ABG pH POC ABG pCO2 33.8 L POC ABG pO2 ABG pO2 ABG HCO3 ABG Base Excess ABG Hemoglobin Oxyhemoglobin Sodium Potassium Chloride Carbon Dioxide BUN Creatinine Glucose POC Glucose 191 H 239 H Lactic Acid Calcium Phosphorus Magnesium Direct Bilirubin AST ALT Alkaline Phosphatase Lactate Dehydrogenase Troponin T C-Reactive Protein Total Protein Albumin Prealbumin Triglycerides Cholesterol LDL Cholesterol Direct HDL Cholesterol Urine pH Urine WBC (Auto) Urine Creatinine Urine Total Protein Fluid Total Protein Vancomycin Trough Rheumatoid Factor Complement C4 Miscellaneous Test Crossmatch 09/11/16 09/12/16 09/12/16 23:52 05:09 05:32 WBC RBC Hgb Hct MCV MCH MCHC RDW Plt Count Lymph % (Auto) [place] % (Auto) Lymph # [place] # Baso # Seg Neutrophils % Seg Neuts % (Manual) Lymphocytes % (Manual) Monocytes % (Manual) Eosinophils % (Manual) Basophils % (Manual) Nucleated RBC % Seg Neutrophils # Seg Neutrophils # Man Lymphocytes # (Manual) Monocytes # (Manual) Eosinophils # (Manual) Basophils # (Manual) PT INR Fibrinogen dRVVT Confirm Interp Factor V Activity POC ABG pH POC ABG pCO2 34.6 L POC ABG pO2 ABG pO2 ABG HCO3 ABG Base Excess ABG Hemoglobin Oxyhemoglobin Sodium Potassium Chloride Carbon Dioxide BUN Creatinine Glucose POC Glucose 265 H 184 H Lactic Acid Calcium Phosphorus Magnesium Direct Bilirubin AST ALT Alkaline Phosphatase Lactate Dehydrogenase Troponin T C-Reactive Protein Total Protein Albumin Prealbumin Triglycerides Cholesterol LDL Cholesterol Direct HDL Cholesterol Urine pH Urine WBC (Auto) Urine Creatinine Urine Total Protein Fluid Total Protein Vancomycin Trough Rheumatoid Factor Complement C4 Miscellaneous Test Crossmatch 09/12/16 09/12/16 09/12/16 06:45 06:45 07:22 WBC 31.7 H RBC 3.54 L Hgb 8.3 L Hct 25.9 L MCV 73 L MCH 23 L MCHC RDW 18.9 H Plt Count Lymph % (Auto) [place] % (Auto) Lymph # [place] # Baso # Seg Neutrophils % Seg Neuts % (Manual) 88.5 H Lymphocytes % (Manual) 4.5 L Monocytes % (Manual) Eosinophils % (Manual) Basophils % (Manual) Nucleated RBC % Seg Neutrophils # Seg Neutrophils # Man 28.1 H Lymphocytes # (Manual) Monocytes # (Manual) 1.0 H Eosinophils # (Manual) Basophils # (Manual) PT INR Fibrinogen dRVVT Confirm Interp Factor V Activity POC ABG pH POC ABG pCO2 POC ABG pO2 ABG pO2 ABG HCO3 ABG Base Excess ABG Hemoglobin Oxyhemoglobin Sodium Potassium Chloride Carbon Dioxide 20 L BUN 115 H Creatinine 2.7 H Glucose 165 H POC Glucose Lactic Acid Calcium 8.0 L Phosphorus Magnesium Direct Bilirubin AST ALT Alkaline Phosphatase Lactate Dehydrogenase Troponin T C-Reactive Protein Total Protein Albumin Prealbumin Triglycerides 217 H Cholesterol LDL Cholesterol Direct HDL Cholesterol Urine pH Urine WBC (Auto) Urine Creatinine Urine Total Protein Fluid Total Protein Vancomycin Trough Rheumatoid Factor Complement C4 Miscellaneous Test Crossmatch 09/12/16 09/12/16 09/12/16 07:22 09:59 12:21 WBC RBC Hgb Hct MCV MCH MCHC RDW Plt Count Lymph % (Auto) [place] % (Auto) Lymph # [place] # Baso # Seg Neutrophils % Seg Neuts % (Manual) Lymphocytes % (Manual) Monocytes % (Manual) Eosinophils % (Manual) Basophils % (Manual) Nucleated RBC % Seg Neutrophils # Seg Neutrophils # Man Lymphocytes # (Manual) Monocytes # (Manual) Eosinophils # (Manual) Basophils # (Manual) PT INR Fibrinogen dRVVT Confirm Interp Positive H Factor V Activity POC ABG pH POC ABG pCO2 POC ABG pO2 ABG pO2 ABG HCO3 ABG Base Excess ABG Hemoglobin Oxyhemoglobin Sodium Potassium Chloride Carbon Dioxide BUN Creatinine Glucose POC Glucose 224 H Lactic Acid Calcium Phosphorus Magnesium Direct Bilirubin AST ALT Alkaline Phosphatase Lactate Dehydrogenase Troponin T C-Reactive Protein 1.70 H Total Protein Albumin Prealbumin Triglycerides Cholesterol LDL Cholesterol Direct HDL Cholesterol Urine pH Urine WBC (Auto) Urine Creatinine Urine Total Protein Fluid Total Protein Vancomycin Trough Rheumatoid Factor Complement C4 Miscellaneous Test Crossmatch 09/12/16 09/12/16 09/13/16 16:51 23:28 04:00 WBC 45.0 H* RBC Hgb 9.4 L Hct MCV 75 L MCH 23 L MCHC RDW 19.0 H Plt Count 470 H Lymph % (Auto) [place] % (Auto) Lymph # [place] # Baso # Seg Neutrophils % Seg Neuts % (Manual) 89.0 H Lymphocytes % (Manual) 5.0 L Monocytes % (Manual) Eosinophils % (Manual) Basophils % (Manual) Nucleated RBC % Seg Neutrophils # Seg Neutrophils # Man 40.1 H Lymphocytes # (Manual) Monocytes # (Manual) Eosinophils # (Manual) Basophils # (Manual) PT INR Fibrinogen dRVVT Confirm Interp Factor V Activity POC ABG pH POC ABG pCO2 POC ABG pO2 ABG pO2 ABG HCO3 ABG Base Excess ABG Hemoglobin Oxyhemoglobin Sodium Potassium Chloride Carbon Dioxide BUN Creatinine Glucose POC Glucose 169 H 150 H Lactic Acid Calcium Phosphorus Magnesium Direct Bilirubin AST ALT Alkaline Phosphatase Lactate Dehydrogenase Troponin T C-Reactive Protein Total Protein Albumin Prealbumin Triglycerides Cholesterol LDL Cholesterol Direct HDL Cholesterol Urine pH Urine WBC (Auto) Urine Creatinine Urine Total Protein Fluid Total Protein Vancomycin Trough Rheumatoid Factor Complement C4 Miscellaneous Test Crossmatch 09/13/16 09/13/16 09/13/16 04:00 11:26 17:31 WBC RBC Hgb Hct MCV MCH MCHC RDW Plt Count Lymph % (Auto) [place] % (Auto) Lymph # [place] # Baso # Seg Neutrophils % Seg Neuts % (Manual) Lymphocytes % (Manual) Monocytes % (Manual) Eosinophils % (Manual) Basophils % (Manual) Nucleated RBC % Seg Neutrophils # Seg Neutrophils # Man Lymphocytes # (Manual) Monocytes # (Manual) Eosinophils # (Manual) Basophils # (Manual) PT INR Fibrinogen dRVVT Confirm Interp Factor V Activity POC ABG pH POC ABG pCO2 POC ABG pO2 ABG pO2 ABG HCO3 ABG Base Excess ABG Hemoglobin Oxyhemoglobin Sodium Potassium Chloride Carbon Dioxide 20 L BUN 116 H Creatinine 3.0 H Glucose 172 H POC Glucose 140 H 183 H Lactic Acid Calcium Phosphorus Magnesium Direct Bilirubin AST ALT Alkaline Phosphatase Lactate Dehydrogenase Troponin T C-Reactive Protein Total Protein 6.2 L Albumin 2.9 L Prealbumin Triglycerides Cholesterol LDL Cholesterol Direct HDL Cholesterol Urine pH Urine WBC (Auto) Urine Creatinine Urine Total Protein Fluid Total Protein Vancomycin Trough Rheumatoid Factor Complement C4 Miscellaneous Test Crossmatch 09/13/16 09/14/16 09/14/16 23:23 04:06 04:07 WBC 29.4 H RBC Hgb 8.9 L Hct 27.3 L MCV 75 L MCH 24 L MCHC RDW 19.1 H Plt Count Lymph % (Auto) [place] % (Auto) Lymph # [place] # Baso # Seg Neutrophils % Seg Neuts % (Manual) 84.0 H Lymphocytes % (Manual) 6.0 L Monocytes % (Manual) 9.0 H Eosinophils % (Manual) Basophils % (Manual) Nucleated RBC % Seg Neutrophils # Seg Neutrophils # Man 24.7 H Lymphocytes # (Manual) Monocytes # (Manual) 2.6 H Eosinophils # (Manual) Basophils # (Manual) PT INR Fibrinogen dRVVT Confirm Interp Factor V Activity POC ABG pH 7.342 L POC ABG pCO2 POC ABG pO2 116 H ABG pO2 ABG HCO3 ABG Base Excess ABG Hemoglobin Oxyhemoglobin Sodium Potassium Chloride Carbon Dioxide BUN Creatinine Glucose POC Glucose 154 H Lactic Acid Calcium Phosphorus Magnesium Direct Bilirubin AST ALT Alkaline Phosphatase Lactate Dehydrogenase Troponin T C-Reactive Protein Total Protein Albumin Prealbumin Triglycerides Cholesterol LDL Cholesterol Direct HDL Cholesterol Urine pH Urine WBC (Auto) Urine Creatinine Urine Total Protein Fluid Total Protein Vancomycin Trough Rheumatoid Factor Complement C4 Miscellaneous Test Crossmatch 09/14/16 09/14/16 09/14/16 04:07 05:29 12:19 WBC RBC Hgb Hct MCV MCH MCHC RDW Plt Count Lymph % (Auto) [place] % (Auto) Lymph # [place] # Baso # Seg Neutrophils % Seg Neuts % (Manual) Lymphocytes % (Manual) Monocytes % (Manual) Eosinophils % (Manual) Basophils % (Manual) Nucleated RBC % Seg Neutrophils # Seg Neutrophils # Man Lymphocytes # (Manual) Monocytes # (Manual) Eosinophils # (Manual) Basophils # (Manual) PT INR Fibrinogen dRVVT Confirm Interp Factor V Activity POC ABG pH POC ABG pCO2 POC ABG pO2 ABG pO2 ABG HCO3 ABG Base Excess ABG Hemoglobin Oxyhemoglobin Sodium 136 L Potassium Chloride Carbon Dioxide 18 L BUN 121 H Creatinine 2.8 H Glucose 214 H POC Glucose 239 H 181 H Lactic Acid Calcium Phosphorus Magnesium Direct Bilirubin AST ALT Alkaline Phosphatase Lactate Dehydrogenase Troponin T C-Reactive Protein Total Protein Albumin Prealbumin Triglycerides Cholesterol LDL Cholesterol Direct HDL Cholesterol Urine pH Urine WBC (Auto) Urine Creatinine Urine Total Protein Fluid Total Protein Vancomycin Trough Rheumatoid Factor Complement C4 Miscellaneous Test Crossmatch 09/14/16 09/14/16 09/15/16 18:12 23:37 05:00 WBC 26.1 H RBC 3.05 L Hgb 7.2 L Hct 22.9 L MCV 75 L MCH 24 L MCHC RDW 19.0 H Plt Count Lymph % (Auto) [place] % (Auto) Lymph # [place] # Baso # Seg Neutrophils % Seg Neuts % (Manual) Lymphocytes % (Manual) Monocytes % (Manual) Eosinophils % (Manual) Basophils % (Manual) Nucleated RBC % Seg Neutrophils # Seg Neutrophils # Man Lymphocytes # (Manual) Monocytes # (Manual) Eosinophils # (Manual) Basophils # (Manual) PT INR Fibrinogen dRVVT Confirm Interp Factor V Activity POC ABG pH POC ABG pCO2 POC ABG pO2 ABG pO2 ABG HCO3 ABG Base Excess ABG Hemoglobin Oxyhemoglobin Sodium Potassium Chloride Carbon Dioxide BUN Creatinine Glucose POC Glucose 266 H 154 H Lactic Acid Calcium Phosphorus Magnesium Direct Bilirubin AST ALT Alkaline Phosphatase Lactate Dehydrogenase Troponin T C-Reactive Protein Total Protein Albumin Prealbumin Triglycerides Cholesterol LDL Cholesterol Direct HDL Cholesterol Urine pH Urine WBC (Auto) Urine Creatinine Urine Total Protein Fluid Total Protein Vancomycin Trough Rheumatoid Factor Complement C4 Miscellaneous Test Crossmatch 09/15/16 09/15/16 09/15/16 05:00 05:17 12:45 WBC RBC Hgb Hct MCV MCH MCHC RDW Plt Count Lymph % (Auto) [place] % (Auto) Lymph # [place] # Baso # Seg Neutrophils % Seg Neuts % (Manual) Lymphocytes % (Manual) Monocytes % (Manual) Eosinophils % (Manual) Basophils % (Manual) Nucleated RBC % Seg Neutrophils # Seg Neutrophils # Man Lymphocytes # (Manual) Monocytes # (Manual) Eosinophils # (Manual) Basophils # (Manual) PT INR Fibrinogen dRVVT Confirm Interp Factor V Activity POC ABG pH POC ABG pCO2 POC ABG pO2 ABG pO2 ABG HCO3 ABG Base Excess ABG Hemoglobin Oxyhemoglobin Sodium Potassium 5.2 H Chloride Carbon Dioxide 18 L BUN 139 H Creatinine 3.7 H Glucose 227 H POC Glucose 226 H 244 H Lactic Acid Calcium 8.3 L Phosphorus Magnesium Direct Bilirubin AST ALT Alkaline Phosphatase Lactate Dehydrogenase Troponin T C-Reactive Protein Total Protein Albumin Prealbumin Triglycerides Cholesterol LDL Cholesterol Direct HDL Cholesterol Urine pH Urine WBC (Auto) Urine Creatinine Urine Total Protein Fluid Total Protein Vancomycin Trough Rheumatoid Factor Complement C4 Miscellaneous Test Crossmatch 09/15/16 09/15/16 09/15/16 14:32 17:33 23:35 WBC RBC Hgb Hct MCV MCH MCHC RDW Plt Count Lymph % (Auto) [place] % (Auto) Lymph # [place] # Baso # Seg Neutrophils % Seg Neuts % (Manual) Lymphocytes % (Manual) Monocytes % (Manual) Eosinophils % (Manual) Basophils % (Manual) Nucleated RBC % Seg Neutrophils # Seg Neutrophils # Man Lymphocytes # (Manual) Monocytes # (Manual) Eosinophils # (Manual) Basophils # (Manual) PT INR Fibrinogen dRVVT Confirm Interp Factor V Activity POC ABG pH POC ABG pCO2 27.7 L POC ABG pO2 120 H ABG pO2 ABG HCO3 ABG Base Excess ABG Hemoglobin Oxyhemoglobin Sodium Potassium Chloride Carbon Dioxide BUN Creatinine Glucose POC Glucose 232 H 167 H Lactic Acid Calcium Phosphorus Magnesium Direct Bilirubin AST ALT Alkaline Phosphatase Lactate Dehydrogenase Troponin T C-Reactive Protein Total Protein Albumin Prealbumin Triglycerides Cholesterol LDL Cholesterol Direct HDL Cholesterol Urine pH Urine WBC (Auto) Urine Creatinine Urine Total Protein Fluid Total Protein Vancomycin Trough Rheumatoid Factor Complement C4 Miscellaneous Test Crossmatch 09/16/16 09/16/16 09/16/16 03:58 10:27 10:27 WBC 19.0 H RBC 2.77 L Hgb 6.5 L Hct 20.9 L MCV 76 L MCH 23 L MCHC RDW 19.3 H Plt Count Lymph % (Auto) 11.0 L [place] % (Auto) Lymph # [place] # 1.1 H Baso # Seg Neutrophils % 82.5 H Seg Neuts % (Manual) Lymphocytes % (Manual) Monocytes % (Manual) Eosinophils % (Manual) Basophils % (Manual) Nucleated RBC % Seg Neutrophils # 15.7 H Seg Neutrophils # Man Lymphocytes # (Manual) Monocytes # (Manual) Eosinophils # (Manual) Basophils # (Manual) PT INR Fibrinogen dRVVT Confirm Interp Factor V Activity POC ABG pH POC ABG pCO2 POC ABG pO2 ABG pO2 ABG HCO3 ABG Base Excess ABG Hemoglobin Oxyhemoglobin Sodium Potassium Chloride 109.3 H Carbon Dioxide 18 L BUN 139 H Creatinine 4.1 H Glucose 144 H POC Glucose 146 H Lactic Acid Calcium 8.1 L Phosphorus Magnesium Direct Bilirubin AST ALT Alkaline Phosphatase Lactate Dehydrogenase Troponin T C-Reactive Protein Total Protein Albumin Prealbumin Triglycerides Cholesterol LDL Cholesterol Direct HDL Cholesterol Urine pH Urine WBC (Auto) Urine Creatinine Urine Total Protein Fluid Total Protein Vancomycin Trough Rheumatoid Factor Complement C4 Miscellaneous Test Crossmatch 09/16/16 09/16/16 09/16/16 12:04 12:10 13:55 WBC RBC Hgb Hct MCV MCH MCHC RDW Plt Count Lymph % (Auto) [place] % (Auto) Lymph # [place] # Baso # Seg Neutrophils % Seg Neuts % (Manual) Lymphocytes % (Manual) Monocytes % (Manual) Eosinophils % (Manual) Basophils % (Manual) Nucleated RBC % Seg Neutrophils # Seg Neutrophils # Man Lymphocytes # (Manual) Monocytes # (Manual) Eosinophils # (Manual) Basophils # (Manual) PT INR Fibrinogen dRVVT Confirm Interp Factor V Activity POC ABG pH POC ABG pCO2 32.9 L POC ABG pO2 ABG pO2 ABG HCO3 ABG Base Excess ABG Hemoglobin Oxyhemoglobin Sodium Potassium Chloride Carbon Dioxide BUN Creatinine Glucose POC Glucose 185 H Lactic Acid Calcium Phosphorus Magnesium Direct Bilirubin AST ALT Alkaline Phosphatase Lactate Dehydrogenase Troponin T C-Reactive Protein Total Protein Albumin Prealbumin Triglycerides Cholesterol LDL Cholesterol Direct HDL Cholesterol Urine pH Urine WBC (Auto) Urine Creatinine Urine Total Protein Fluid Total Protein Vancomycin Trough Rheumatoid Factor Complement C4 Miscellaneous Test Crossmatch See Detail 09/16/16 09/16/16 09/16/16 17:55 19:19 23:48 WBC RBC Hgb Hct MCV MCH MCHC RDW Plt Count Lymph % (Auto) [place] % (Auto) Lymph # [place] # Baso # Seg Neutrophils % Seg Neuts % (Manual) Lymphocytes % (Manual) Monocytes % (Manual) Eosinophils % (Manual) Basophils % (Manual) Nucleated RBC % Seg Neutrophils # Seg Neutrophils # Man Lymphocytes # (Manual) Monocytes # (Manual) Eosinophils # (Manual) Basophils # (Manual) PT INR Fibrinogen dRVVT Confirm Interp Factor V Activity POC ABG pH POC ABG pCO2 POC ABG pO2 ABG pO2 ABG HCO3 ABG Base Excess ABG Hemoglobin Oxyhemoglobin Sodium Potassium Chloride Carbon Dioxide BUN Creatinine Glucose POC Glucose 222 H 107 H Lactic Acid Calcium Phosphorus Magnesium Direct Bilirubin AST ALT Alkaline Phosphatase Lactate Dehydrogenase Troponin T C-Reactive Protein Total Protein Albumin Prealbumin Triglycerides Cholesterol LDL Cholesterol Direct HDL Cholesterol Urine pH Urine WBC (Auto) Urine Creatinine 47.4 H Urine Total Protein 16 H Fluid Total Protein Vancomycin Trough Rheumatoid Factor Complement C4 Miscellaneous Test Crossmatch 09/17/16 09/17/16 09/17/16 03:45 03:45 04:55 WBC 19.6 H RBC 3.41 L Hgb 8.5 L Hct 26.7 L MCV 78 L MCH 25 L MCHC RDW 19.9 H Plt Count Lymph % (Auto) 9.3 L [place] % (Auto) Lymph # [place] # 1.2 H Baso # Seg Neutrophils % 83.9 H Seg Neuts % (Manual) Lymphocytes % (Manual) Monocytes % (Manual) Eosinophils % (Manual) Basophils % (Manual) Nucleated RBC % Seg Neutrophils # 16.4 H Seg Neutrophils # Man Lymphocytes # (Manual) Monocytes # (Manual) Eosinophils # (Manual) Basophils # (Manual) PT INR Fibrinogen dRVVT Confirm Interp Factor V Activity POC ABG pH POC ABG pCO2 POC ABG pO2 ABG pO2 ABG HCO3 ABG Base Excess ABG Hemoglobin Oxyhemoglobin Sodium 146 H Potassium 5.1 H Chloride 110.9 H Carbon Dioxide 16 L BUN 146 H Creatinine 4.0 H Glucose 108 H POC Glucose 133 H Lactic Acid Calcium Phosphorus Magnesium 3.00 H Direct Bilirubin AST ALT Alkaline Phosphatase Lactate Dehydrogenase Troponin T C-Reactive Protein Total Protein Albumin Prealbumin Triglycerides Cholesterol LDL Cholesterol Direct HDL Cholesterol Urine pH Urine WBC (Auto) Urine Creatinine Urine Total Protein Fluid Total Protein Vancomycin Trough Rheumatoid Factor Complement C4 Miscellaneous Test Crossmatch 09/17/16 09/17/16 09/17/16 11:15 17:33 23:47 WBC RBC Hgb Hct MCV MCH MCHC RDW Plt Count Lymph % (Auto) [place] % (Auto) Lymph # [place] # Baso # Seg Neutrophils % Seg Neuts % (Manual) Lymphocytes % (Manual) Monocytes % (Manual) Eosinophils % (Manual) Basophils % (Manual) Nucleated RBC % Seg Neutrophils # Seg Neutrophils # Man Lymphocytes # (Manual) Monocytes # (Manual) Eosinophils # (Manual) Basophils # (Manual) PT INR Fibrinogen dRVVT Confirm Interp Factor V Activity POC ABG pH POC ABG pCO2 POC ABG pO2 ABG pO2 ABG HCO3 ABG Base Excess ABG Hemoglobin Oxyhemoglobin Sodium Potassium Chloride Carbon Dioxide BUN Creatinine Glucose POC Glucose 176 H 246 H 148 H Lactic Acid Calcium Phosphorus Magnesium Direct Bilirubin AST ALT Alkaline Phosphatase Lactate Dehydrogenase Troponin T C-Reactive Protein Total Protein Albumin Prealbumin Triglycerides Cholesterol LDL Cholesterol Direct HDL Cholesterol Urine pH Urine WBC (Auto) Urine Creatinine Urine Total Protein Fluid Total Protein Vancomycin Trough Rheumatoid Factor Complement C4 Miscellaneous Test Crossmatch 09/18/16 09/18/16 09/18/16 05:33 08:31 08:31 WBC 18.0 H RBC 3.17 L Hgb 9.0 L Hct 25.7 L MCV MCH MCHC 35 H RDW 20.4 H Plt Count Lymph % (Auto) [place] % (Auto) Lymph # [place] # Baso # Seg Neutrophils % Seg Neuts % (Manual) Lymphocytes % (Manual) Monocytes % (Manual) Eosinophils % (Manual) Basophils % (Manual) Nucleated RBC % Seg Neutrophils # Seg Neutrophils # Man Lymphocytes # (Manual) Monocytes # (Manual) Eosinophils # (Manual) Basophils # (Manual) PT INR Fibrinogen dRVVT Confirm Interp Factor V Activity POC ABG pH POC ABG pCO2 POC ABG pO2 ABG pO2 ABG HCO3 ABG Base Excess ABG Hemoglobin Oxyhemoglobin Sodium Potassium Chloride Carbon Dioxide 15 L BUN 124 H Creatinine 3.8 H Glucose POC Glucose 120 H Lactic Acid Calcium 8.1 L Phosphorus Magnesium Direct Bilirubin AST ALT Alkaline Phosphatase Lactate Dehydrogenase Troponin T C-Reactive Protein Total Protein Albumin Prealbumin Triglycerides Cholesterol LDL Cholesterol Direct HDL Cholesterol Urine pH Urine WBC (Auto) Urine Creatinine Urine Total Protein Fluid Total Protein Vancomycin Trough Rheumatoid Factor Complement C4 Miscellaneous Test Crossmatch 09/18/16 09/18/16 09/18/16 12:03 15:34 17:50 WBC RBC Hgb Hct MCV MCH MCHC RDW Plt Count Lymph % (Auto) [place] % (Auto) Lymph # [place] # Baso # Seg Neutrophils % Seg Neuts % (Manual) Lymphocytes % (Manual) Monocytes % (Manual) Eosinophils % (Manual) Basophils % (Manual) Nucleated RBC % Seg Neutrophils # Seg Neutrophils # Man Lymphocytes # (Manual) Monocytes # (Manual) Eosinophils # (Manual) Basophils # (Manual) PT INR Fibrinogen dRVVT Confirm Interp Factor V Activity POC ABG pH POC ABG pCO2 25.7 L POC ABG pO2 66 L ABG pO2 ABG HCO3 ABG Base Excess ABG Hemoglobin Oxyhemoglobin Sodium Potassium Chloride Carbon Dioxide BUN Creatinine Glucose POC Glucose 156 H 220 H Lactic Acid Calcium Phosphorus Magnesium Direct Bilirubin AST ALT Alkaline Phosphatase Lactate Dehydrogenase Troponin T C-Reactive Protein Total Protein Albumin Prealbumin Triglycerides Cholesterol LDL Cholesterol Direct HDL Cholesterol Urine pH Urine WBC (Auto) Urine Creatinine Urine Total Protein Fluid Total Protein Vancomycin Trough Rheumatoid Factor Complement C4 Miscellaneous Test Crossmatch 09/19/16 09/19/16 09/19/16 06:21 09:50 09:50 WBC 17.1 H RBC 3.49 L Hgb 9.0 L Hct 28.1 L MCV MCH 26 L MCHC RDW 20.8 H Plt Count Lymph % (Auto) 11.5 L [place] % (Auto) 7.5 H Lymph # [place] # 1.3 H Baso # Seg Neutrophils % 79.8 H Seg Neuts % (Manual) Lymphocytes % (Manual) Monocytes % (Manual) Eosinophils % (Manual) Basophils % (Manual) Nucleated RBC % Seg Neutrophils # 13.7 H Seg Neutrophils # Man Lymphocytes # (Manual) Monocytes # (Manual) Eosinophils # (Manual) Basophils # (Manual) PT INR Fibrinogen dRVVT Confirm Interp Factor V Activity POC ABG pH POC ABG pCO2 POC ABG pO2 ABG pO2 ABG HCO3 ABG Base Excess ABG Hemoglobin Oxyhemoglobin Sodium Potassium Chloride 108.6 H Carbon Dioxide 15 L BUN 125 H Creatinine 4.1 H Glucose 124 H POC Glucose 119 H Lactic Acid Calcium Phosphorus Magnesium Direct Bilirubin AST ALT Alkaline Phosphatase Lactate Dehydrogenase Troponin T C-Reactive Protein Total Protein Albumin Prealbumin Triglycerides Cholesterol LDL Cholesterol Direct HDL Cholesterol Urine pH Urine WBC (Auto) Urine Creatinine Urine Total Protein Fluid Total Protein Vancomycin Trough Rheumatoid Factor Complement C4 Miscellaneous Test Crossmatch 09/19/16 09/19/16 09/19/16 11:25 17:53 23:36 WBC RBC Hgb Hct MCV MCH MCHC RDW Plt Count Lymph % (Auto) [place] % (Auto) Lymph # [place] # Baso # Seg Neutrophils % Seg Neuts % (Manual) Lymphocytes % (Manual) Monocytes % (Manual) Eosinophils % (Manual) Basophils % (Manual) Nucleated RBC % Seg Neutrophils # Seg Neutrophils # Man Lymphocytes # (Manual) Monocytes # (Manual) Eosinophils # (Manual) Basophils # (Manual) PT INR Fibrinogen dRVVT Confirm Interp Factor V Activity POC ABG pH POC ABG pCO2 POC ABG pO2 ABG pO2 ABG HCO3 ABG Base Excess ABG Hemoglobin Oxyhemoglobin Sodium Potassium Chloride Carbon Dioxide BUN Creatinine Glucose POC Glucose 160 H 245 H 121 H Lactic Acid Calcium Phosphorus Magnesium Direct Bilirubin AST ALT Alkaline Phosphatase Lactate Dehydrogenase Troponin T C-Reactive Protein Total Protein Albumin Prealbumin Triglycerides Cholesterol LDL Cholesterol Direct HDL Cholesterol Urine pH Urine WBC (Auto) Urine Creatinine Urine Total Protein Fluid Total Protein Vancomycin Trough Rheumatoid Factor Complement C4 Miscellaneous Test Crossmatch 09/20/16 09/20/16 09/20/16 04:10 04:10 04:10 WBC 17.0 H RBC 3.21 L Hgb 8.2 L Hct 25.5 L MCV MCH 26 L MCHC RDW 20.9 H Plt Count Lymph % (Auto) [place] % (Auto) Lymph # [place] # Baso # Seg Neutrophils % Seg Neuts % (Manual) Lymphocytes % (Manual) Monocytes % (Manual) Eosinophils % (Manual) Basophils % (Manual) Nucleated RBC % Seg Neutrophils # Seg Neutrophils # Man Lymphocytes # (Manual) Monocytes # (Manual) Eosinophils # (Manual) Basophils # (Manual) PT INR Fibrinogen dRVVT Confirm Interp Factor V Activity POC ABG pH POC ABG pCO2 POC ABG pO2 ABG pO2 ABG HCO3 ABG Base Excess ABG Hemoglobin Oxyhemoglobin Sodium Potassium Chloride 111.0 H Carbon Dioxide 16 L BUN 129 H Creatinine 3.7 H Glucose 115 H POC Glucose Lactic Acid Calcium 8.2 L Phosphorus Magnesium Direct Bilirubin AST ALT Alkaline Phosphatase Lactate Dehydrogenase Troponin T C-Reactive Protein Total Protein Albumin Prealbumin Triglycerides 243 H Cholesterol LDL Cholesterol Direct HDL Cholesterol Urine pH Urine WBC (Auto) Urine Creatinine Urine Total Protein Fluid Total Protein Vancomycin Trough Rheumatoid Factor Complement C4 Miscellaneous Test Crossmatch 09/20/16 09/20/16 09/20/16 05:40 11:52 16:50 WBC RBC Hgb Hct MCV MCH MCHC RDW Plt Count Lymph % (Auto) [place] % (Auto) Lymph # [place] # Baso # Seg Neutrophils % Seg Neuts % (Manual) Lymphocytes % (Manual) Monocytes % (Manual) Eosinophils % (Manual) Basophils % (Manual) Nucleated RBC % Seg Neutrophils # Seg Neutrophils # Man Lymphocytes # (Manual) Monocytes # (Manual) Eosinophils # (Manual) Basophils # (Manual) PT INR Fibrinogen dRVVT Confirm Interp Factor V Activity POC ABG pH POC ABG pCO2 POC ABG pO2 ABG pO2 ABG HCO3 ABG Base Excess ABG Hemoglobin Oxyhemoglobin Sodium Potassium Chloride Carbon Dioxide BUN Creatinine Glucose POC Glucose 131 H 183 H 236 H Lactic Acid Calcium Phosphorus Magnesium Direct Bilirubin AST ALT Alkaline Phosphatase Lactate Dehydrogenase Troponin T C-Reactive Protein Total Protein Albumin Prealbumin Triglycerides Cholesterol LDL Cholesterol Direct HDL Cholesterol Urine pH Urine WBC (Auto) Urine Creatinine Urine Total Protein Fluid Total Protein Vancomycin Trough Rheumatoid Factor Complement C4 Miscellaneous Test Crossmatch 09/20/16 09/21/16 09/21/16 23:51 03:30 04:44 WBC RBC Hgb Hct MCV MCH MCHC RDW Plt Count Lymph % (Auto) [place] % (Auto) Lymph # [place] # Baso # Seg Neutrophils % Seg Neuts % (Manual) Lymphocytes % (Manual) Monocytes % (Manual) Eosinophils % (Manual) Basophils % (Manual) Nucleated RBC % Seg Neutrophils # Seg Neutrophils # Man Lymphocytes # (Manual) Monocytes # (Manual) Eosinophils # (Manual) Basophils # (Manual) PT INR Fibrinogen dRVVT Confirm Interp Factor V Activity POC ABG pH POC ABG pCO2 POC ABG pO2 ABG pO2 ABG HCO3 ABG Base Excess ABG Hemoglobin Oxyhemoglobin Sodium Potassium Chloride Carbon Dioxide BUN Creatinine Glucose POC Glucose 114 H 141 H Lactic Acid Calcium Phosphorus Magnesium 2.70 H Direct Bilirubin AST ALT Alkaline Phosphatase Lactate Dehydrogenase Troponin T C-Reactive Protein Total Protein Albumin Prealbumin Triglycerides Cholesterol LDL Cholesterol Direct HDL Cholesterol Urine pH Urine WBC (Auto) Urine Creatinine Urine Total Protein Fluid Total Protein Vancomycin Trough Rheumatoid Factor Complement C4 Miscellaneous Test Crossmatch 09/21/16 09/21/16 09/21/16 07:45 07:45 10:01 WBC 13.8 H RBC 2.94 L Hgb 7.5 L Hct 23.5 L MCV MCH 26 L MCHC RDW 21.2 H Plt Count Lymph % (Auto) 6.9 L [place] % (Auto) 9.4 H Lymph # 0.9 L [place] # 1.3 H Baso # Seg Neutrophils % 83.2 H Seg Neuts % (Manual) Lymphocytes % (Manual) Monocytes % (Manual) Eosinophils % (Manual) Basophils % (Manual) Nucleated RBC % Seg Neutrophils # 11.5 H Seg Neutrophils # Man Lymphocytes # (Manual) Monocytes # (Manual) Eosinophils # (Manual) Basophils # (Manual) PT INR Fibrinogen dRVVT Confirm Interp Factor V Activity POC ABG pH 7.308 L POC ABG pCO2 31.9 L POC ABG pO2 148 H ABG pO2 ABG HCO3 ABG Base Excess ABG Hemoglobin Oxyhemoglobin Sodium 147 H Potassium Chloride 114.2 H Carbon Dioxide 15 L BUN 120 H Creatinine 3.9 H Glucose 156 H POC Glucose Lactic Acid Calcium 8.2 L Phosphorus Magnesium Direct Bilirubin AST ALT Alkaline Phosphatase Lactate Dehydrogenase Troponin T C-Reactive Protein Total Protein Albumin Prealbumin Triglycerides Cholesterol LDL Cholesterol Direct HDL Cholesterol Urine pH Urine WBC (Auto) Urine Creatinine Urine Total Protein Fluid Total Protein Vancomycin Trough Rheumatoid Factor Complement C4 Miscellaneous Test Crossmatch 09/21/16 09/21/16 09/21/16 12:00 12:03 13:00 WBC RBC Hgb Hct MCV MCH MCHC RDW Plt Count Lymph % (Auto) [place] % (Auto) Lymph # [place] # Baso # Seg Neutrophils % Seg Neuts % (Manual) Lymphocytes % (Manual) Monocytes % (Manual) Eosinophils % (Manual) Basophils % (Manual) Nucleated RBC % Seg Neutrophils # Seg Neutrophils # Man Lymphocytes # (Manual) Monocytes # (Manual) Eosinophils # (Manual) Basophils # (Manual) PT INR Fibrinogen dRVVT Confirm Interp Factor V Activity POC ABG pH POC ABG pCO2 POC ABG pO2 ABG pO2 ABG HCO3 ABG Base Excess ABG Hemoglobin Oxyhemoglobin Sodium Potassium Chloride Carbon Dioxide BUN Creatinine Glucose POC Glucose 163 H Lactic Acid Calcium Phosphorus Magnesium Direct Bilirubin AST ALT Alkaline Phosphatase Lactate Dehydrogenase Troponin T C-Reactive Protein Total Protein Albumin Prealbumin Triglycerides Cholesterol LDL Cholesterol Direct HDL Cholesterol Urine pH Urine WBC (Auto) Urine Creatinine 54.8 H Urine Total Protein Fluid Total Protein Vancomycin Trough 2.3 L Rheumatoid Factor Complement C4 Miscellaneous Test Crossmatch 09/21/16 09/21/16 09/22/16 16:51 23:17 06:27 WBC RBC Hgb Hct MCV MCH MCHC RDW Plt Count Lymph % (Auto) [place] % (Auto) Lymph # [place] # Baso # Seg Neutrophils % Seg Neuts % (Manual) Lymphocytes % (Manual) Monocytes % (Manual) Eosinophils % (Manual) Basophils % (Manual) Nucleated RBC % Seg Neutrophils # Seg Neutrophils # Man Lymphocytes # (Manual) Monocytes # (Manual) Eosinophils # (Manual) Basophils # (Manual) PT INR Fibrinogen dRVVT Confirm Interp Factor V Activity POC ABG pH POC ABG pCO2 POC ABG pO2 ABG pO2 ABG HCO3 ABG Base Excess ABG Hemoglobin Oxyhemoglobin Sodium Potassium Chloride Carbon Dioxide BUN Creatinine Glucose POC Glucose 206 H 114 H 115 H Lactic Acid Calcium Phosphorus Magnesium Direct Bilirubin AST ALT Alkaline Phosphatase Lactate Dehydrogenase Troponin T C-Reactive Protein Total Protein Albumin Prealbumin Triglycerides Cholesterol LDL Cholesterol Direct HDL Cholesterol Urine pH Urine WBC (Auto) Urine Creatinine Urine Total Protein Fluid Total Protein Vancomycin Trough Rheumatoid Factor Complement C4 Miscellaneous Test Crossmatch 09/22/16 09/22/16 09/22/16 07:50 07:50 12:00 WBC 17.8 H RBC 3.04 L Hgb 8.0 L Hct 24.7 L MCV MCH 26 L MCHC RDW 21.6 H Plt Count Lymph % (Auto) [place] % (Auto) Lymph # [place] # Baso # Seg Neutrophils % Seg Neuts % (Manual) Lymphocytes % (Manual) Monocytes % (Manual) Eosinophils % (Manual) Basophils % (Manual) Nucleated RBC % Seg Neutrophils # Seg Neutrophils # Man Lymphocytes # (Manual) Monocytes # (Manual) Eosinophils # (Manual) Basophils # (Manual) PT INR Fibrinogen dRVVT Confirm Interp Factor V Activity POC ABG pH POC ABG pCO2 POC ABG pO2 ABG pO2 ABG HCO3 ABG Base Excess ABG Hemoglobin Oxyhemoglobin Sodium 150 H Potassium Chloride 118.2 H Carbon Dioxide 14 L BUN 111 H Creatinine 3.7 H Glucose 157 H POC Glucose 183 H Lactic Acid Calcium Phosphorus Magnesium Direct Bilirubin AST ALT Alkaline Phosphatase Lactate Dehydrogenase Troponin T C-Reactive Protein Total Protein Albumin Prealbumin Triglycerides Cholesterol LDL Cholesterol Direct HDL Cholesterol Urine pH Urine WBC (Auto) Urine Creatinine Urine Total Protein Fluid Total Protein Vancomycin Trough Rheumatoid Factor Complement C4 Miscellaneous Test Crossmatch 09/22/16 09/22/16 09/23/16 17:29 23:10 05:00 WBC 19.2 H RBC 3.13 L Hgb 8.0 L Hct 25.2 L MCV MCH 26 L MCHC RDW 22.1 H Plt Count Lymph % (Auto) [place] % (Auto) Lymph # [place] # Baso # Seg Neutrophils % Seg Neuts % (Manual) 92.0 H Lymphocytes % (Manual) 3.0 L Monocytes % (Manual) Eosinophils % (Manual) Basophils % (Manual) Nucleated RBC % Seg Neutrophils # Seg Neutrophils # Man 17.7 H Lymphocytes # (Manual) 0.6 L Monocytes # (Manual) Eosinophils # (Manual) Basophils # (Manual) PT INR Fibrinogen dRVVT Confirm Interp Factor V Activity POC ABG pH POC ABG pCO2 POC ABG pO2 ABG pO2 ABG HCO3 ABG Base Excess ABG Hemoglobin Oxyhemoglobin Sodium Potassium Chloride Carbon Dioxide BUN Creatinine Glucose POC Glucose 197 H 169 H Lactic Acid Calcium Phosphorus Magnesium Direct Bilirubin AST ALT Alkaline Phosphatase Lactate Dehydrogenase Troponin T C-Reactive Protein Total Protein Albumin Prealbumin Triglycerides Cholesterol LDL Cholesterol Direct HDL Cholesterol Urine pH Urine WBC (Auto) Urine Creatinine Urine Total Protein Fluid Total Protein Vancomycin Trough Rheumatoid Factor Complement C4 Miscellaneous Test Crossmatch 09/23/16 09/23/16 09/23/16 05:00 05:00 05:10 WBC RBC Hgb Hct MCV MCH MCHC RDW Plt Count Lymph % (Auto) [place] % (Auto) Lymph # [place] # Baso # Seg Neutrophils % Seg Neuts % (Manual) Lymphocytes % (Manual) Monocytes % (Manual) Eosinophils % (Manual) Basophils % (Manual) Nucleated RBC % Seg Neutrophils # Seg Neutrophils # Man Lymphocytes # (Manual) Monocytes # (Manual) Eosinophils # (Manual) Basophils # (Manual) PT INR Fibrinogen dRVVT Confirm Interp Factor V Activity POC ABG pH POC ABG pCO2 POC ABG pO2 ABG pO2 ABG HCO3 ABG Base Excess ABG Hemoglobin Oxyhemoglobin Sodium 147 H Potassium 3.2 L Chloride 115.7 H Carbon Dioxide 13 L BUN 111 H Creatinine 3.8 H Glucose 194 H POC Glucose 188 H Lactic Acid Calcium 7.3 L D Phosphorus Magnesium Direct Bilirubin AST ALT Alkaline Phosphatase Lactate Dehydrogenase Troponin T C-Reactive Protein 3.20 H Total Protein Albumin Prealbumin Triglycerides Cholesterol LDL Cholesterol Direct HDL Cholesterol Urine pH Urine WBC (Auto) Urine Creatinine Urine Total Protein Fluid Total Protein Vancomycin Trough Rheumatoid Factor Complement C4 Miscellaneous Test Crossmatch 09/23/16 09/23/16 09/23/16 11:37 12:29 18:01 WBC RBC Hgb Hct MCV MCH MCHC RDW Plt Count Lymph % (Auto) [place] % (Auto) Lymph # [place] # Baso # Seg Neutrophils % Seg Neuts % (Manual) Lymphocytes % (Manual) Monocytes % (Manual) Eosinophils % (Manual) Basophils % (Manual) Nucleated RBC % Seg Neutrophils # Seg Neutrophils # Man Lymphocytes # (Manual) Monocytes # (Manual) Eosinophils # (Manual) Basophils # (Manual) PT INR Fibrinogen dRVVT Confirm Interp Factor V Activity POC ABG pH POC ABG pCO2 18.9 L POC ABG pO2 143 H ABG pO2 ABG HCO3 ABG Base Excess ABG Hemoglobin Oxyhemoglobin Sodium Potassium Chloride Carbon Dioxide BUN Creatinine Glucose POC Glucose 153 H 108 H Lactic Acid Calcium Phosphorus Magnesium Direct Bilirubin AST ALT Alkaline Phosphatase Lactate Dehydrogenase Troponin T C-Reactive Protein Total Protein Albumin Prealbumin Triglycerides Cholesterol LDL Cholesterol Direct HDL Cholesterol Urine pH Urine WBC (Auto) Urine Creatinine Urine Total Protein Fluid Total Protein Vancomycin Trough Rheumatoid Factor Complement C4 Miscellaneous Test Crossmatch 09/23/16 09/23/16 09/24/16 21:19 23:43 05:16 WBC RBC Hgb Hct MCV MCH MCHC RDW Plt Count Lymph % (Auto) [place] % (Auto) Lymph # [place] # Baso # Seg Neutrophils % Seg Neuts % (Manual) Lymphocytes % (Manual) Monocytes % (Manual) Eosinophils % (Manual) Basophils % (Manual) Nucleated RBC % Seg Neutrophils # Seg Neutrophils # Man Lymphocytes # (Manual) Monocytes # (Manual) Eosinophils # (Manual) Basophils # (Manual) PT INR Fibrinogen dRVVT Confirm Interp Factor V Activity POC ABG pH POC ABG pCO2 17.3 L POC ABG pO2 112 H ABG pO2 ABG HCO3 ABG Base Excess ABG Hemoglobin Oxyhemoglobin Sodium Potassium Chloride Carbon Dioxide BUN Creatinine Glucose POC Glucose 143 H 164 H Lactic Acid Calcium Phosphorus Magnesium Direct Bilirubin AST ALT Alkaline Phosphatase Lactate Dehydrogenase Troponin T C-Reactive Protein Total Protein Albumin Prealbumin Triglycerides Cholesterol LDL Cholesterol Direct HDL Cholesterol Urine pH Urine WBC (Auto) Urine Creatinine Urine Total Protein Fluid Total Protein Vancomycin Trough Rheumatoid Factor Complement C4 Miscellaneous Test Crossmatch 09/24/16 09/24/16 09/24/16 05:21 11:58 17:06 WBC RBC Hgb Hct MCV MCH MCHC RDW Plt Count Lymph % (Auto) [place] % (Auto) Lymph # [place] # Baso # Seg Neutrophils % Seg Neuts % (Manual) Lymphocytes % (Manual) Monocytes % (Manual) Eosinophils % (Manual) Basophils % (Manual) Nucleated RBC % Seg Neutrophils # Seg Neutrophils # Man Lymphocytes # (Manual) Monocytes # (Manual) Eosinophils # (Manual) Basophils # (Manual) PT INR Fibrinogen dRVVT Confirm Interp Factor V Activity POC ABG pH POC ABG pCO2 POC ABG pO2 ABG pO2 ABG HCO3 ABG Base Excess ABG Hemoglobin Oxyhemoglobin Sodium Potassium Chloride Carbon Dioxide 10 L BUN 103 H Creatinine 4.3 H Glucose 163 H POC Glucose 173 H 167 H Lactic Acid Calcium 6.5 L Phosphorus Magnesium Direct Bilirubin AST ALT Alkaline Phosphatase Lactate Dehydrogenase Troponin T C-Reactive Protein Total Protein Albumin Prealbumin Triglycerides Cholesterol LDL Cholesterol Direct HDL Cholesterol Urine pH Urine WBC (Auto) Urine Creatinine Urine Total Protein Fluid Total Protein Vancomycin Trough Rheumatoid Factor Complement C4 Miscellaneous Test Crossmatch 09/24/16 09/24/16 09/24/16 20:15 21:02 23:48 WBC RBC Hgb Hct MCV MCH MCHC RDW Plt Count Lymph % (Auto) [place] % (Auto) Lymph # [place] # Baso # Seg Neutrophils % Seg Neuts % (Manual) Lymphocytes % (Manual) Monocytes % (Manual) Eosinophils % (Manual) Basophils % (Manual) Nucleated RBC % Seg Neutrophils # Seg Neutrophils # Man Lymphocytes # (Manual) Monocytes # (Manual) Eosinophils # (Manual) Basophils # (Manual) PT INR Fibrinogen dRVVT Confirm Interp Factor V Activity POC ABG pH 7.288 L POC ABG pCO2 30.2 L 21.5 L POC ABG pO2 32 L 39 L ABG pO2 ABG HCO3 ABG Base Excess ABG Hemoglobin Oxyhemoglobin Sodium Potassium Chloride Carbon Dioxide BUN Creatinine Glucose POC Glucose 109 H Lactic Acid Calcium Phosphorus Magnesium Direct Bilirubin AST ALT Alkaline Phosphatase Lactate Dehydrogenase Troponin T C-Reactive Protein Total Protein Albumin Prealbumin Triglycerides Cholesterol LDL Cholesterol Direct HDL Cholesterol Urine pH Urine WBC (Auto) Urine Creatinine Urine Total Protein Fluid Total Protein Vancomycin Trough Rheumatoid Factor Complement C4 Miscellaneous Test Crossmatch 09/25/16 09/25/16 09/25/16 04:20 04:20 04:20 WBC RBC 2.58 L Hgb 7.0 L Hct 21.0 L MCV MCH 27 L MCHC RDW 23.8 H Plt Count Lymph % (Auto) [place] % (Auto) Lymph # [place] # Baso # Seg Neutrophils % Seg Neuts % (Manual) Lymphocytes % (Manual) 12.0 L Monocytes % (Manual) Eosinophils % (Manual) 7.0 H Basophils % (Manual) 2.0 H Nucleated RBC % Seg Neutrophils # Seg Neutrophils # Man Lymphocytes # (Manual) 0.9 L Monocytes # (Manual) Eosinophils # (Manual) 0.5 H Basophils # (Manual) PT INR Fibrinogen dRVVT Confirm Interp Factor V Activity POC ABG pH POC ABG pCO2 POC ABG pO2 ABG pO2 ABG HCO3 ABG Base Excess ABG Hemoglobin Oxyhemoglobin Sodium Potassium Chloride Carbon Dioxide 15 L BUN 72 H Creatinine 3.8 H Glucose POC Glucose Lactic Acid Calcium 6.0 L Phosphorus 4.60 H Magnesium 1.60 L Direct Bilirubin AST ALT Alkaline Phosphatase Lactate Dehydrogenase Troponin T C-Reactive Protein Total Protein Albumin Prealbumin Triglycerides Cholesterol LDL Cholesterol Direct HDL Cholesterol Urine pH Urine WBC (Auto) Urine Creatinine Urine Total Protein Fluid Total Protein Vancomycin Trough Rheumatoid Factor Complement C4 Miscellaneous Test Crossmatch 09/25/16 09/25/16 09/25/16 04:57 08:02 10:30 WBC RBC Hgb Hct MCV MCH MCHC RDW Plt Count Lymph % (Auto) [place] % (Auto) Lymph # [place] # Baso # Seg Neutrophils % Seg Neuts % (Manual) Lymphocytes % (Manual) Monocytes % (Manual) Eosinophils % (Manual) Basophils % (Manual) Nucleated RBC % Seg Neutrophils # Seg Neutrophils # Man Lymphocytes # (Manual) Monocytes # (Manual) Eosinophils # (Manual) Basophils # (Manual) PT INR Fibrinogen dRVVT Confirm Interp Factor V Activity POC ABG pH POC ABG pCO2 24.7 L POC ABG pO2 152 H ABG pO2 ABG HCO3 ABG Base Excess ABG Hemoglobin Oxyhemoglobin Sodium Potassium Chloride Carbon Dioxide BUN Creatinine Glucose POC Glucose 113 H Lactic Acid Calcium Phosphorus Magnesium Direct Bilirubin AST ALT Alkaline Phosphatase Lactate Dehydrogenase Troponin T C-Reactive Protein Total Protein Albumin Prealbumin Triglycerides Cholesterol LDL Cholesterol Direct HDL Cholesterol Urine pH Urine WBC (Auto) Urine Creatinine Urine Total Protein Fluid Total Protein Vancomycin Trough Rheumatoid Factor Complement C4 Miscellaneous Test Crossmatch See Detail 09/25/16 09/25/16 09/25/16 12:05 17:44 23:47 WBC RBC Hgb Hct MCV MCH MCHC RDW Plt Count Lymph % (Auto) [place] % (Auto) Lymph # [place] # Baso # Seg Neutrophils % Seg Neuts % (Manual) Lymphocytes % (Manual) Monocytes % (Manual) Eosinophils % (Manual) Basophils % (Manual) Nucleated RBC % Seg Neutrophils # Seg Neutrophils # Man Lymphocytes # (Manual) Monocytes # (Manual) Eosinophils # (Manual) Basophils # (Manual) PT INR Fibrinogen dRVVT Confirm Interp Factor V Activity POC ABG pH POC ABG pCO2 POC ABG pO2 ABG pO2 ABG HCO3 ABG Base Excess ABG Hemoglobin Oxyhemoglobin Sodium Potassium Chloride Carbon Dioxide BUN Creatinine Glucose POC Glucose 117 H 119 H 150 H Lactic Acid Calcium Phosphorus Magnesium Direct Bilirubin AST ALT Alkaline Phosphatase Lactate Dehydrogenase Troponin T C-Reactive Protein Total Protein Albumin Prealbumin Triglycerides Cholesterol LDL Cholesterol Direct HDL Cholesterol Urine pH Urine WBC (Auto) Urine Creatinine Urine Total Protein Fluid Total Protein Vancomycin Trough Rheumatoid Factor Complement C4 Miscellaneous Test Crossmatch 09/26/16 09/26/16 09/26/16 04:25 04:25 04:25 WBC RBC 2.65 L Hgb 7.4 L Hct 21.6 L MCV MCH MCHC RDW 22.5 H Plt Count Lymph % (Auto) [place] % (Auto) Lymph # [place] # Baso # Seg Neutrophils % Seg Neuts % (Manual) Lymphocytes % (Manual) 6.0 L Monocytes % (Manual) Eosinophils % (Manual) 11.0 H Basophils % (Manual) Nucleated RBC % Seg Neutrophils # Seg Neutrophils # Man Lymphocytes # (Manual) 0.4 L Monocytes # (Manual) Eosinophils # (Manual) 0.6 H Basophils # (Manual) PT INR Fibrinogen dRVVT Confirm Interp Factor V Activity POC ABG pH POC ABG pCO2 POC ABG pO2 ABG pO2 ABG HCO3 ABG Base Excess ABG Hemoglobin Oxyhemoglobin Sodium Potassium Chloride 97.0 L Carbon Dioxide 19 L BUN 43 H Creatinine 2.6 H Glucose 130 H POC Glucose Lactic Acid 4.40 H* Calcium 6.7 L Phosphorus Magnesium Direct Bilirubin AST ALT Alkaline Phosphatase Lactate Dehydrogenase Troponin T C-Reactive Protein Total Protein Albumin Prealbumin Triglycerides Cholesterol LDL Cholesterol Direct HDL Cholesterol Urine pH Urine WBC (Auto) Urine Creatinine Urine Total Protein Fluid Total Protein Vancomycin Trough Rheumatoid Factor Complement C4 Miscellaneous Test Crossmatch 09/26/16 09/26/16 09/26/16 05:20 11:44 12:12 WBC RBC Hgb Hct MCV MCH MCHC RDW Plt Count Lymph % (Auto) [place] % (Auto) Lymph # [place] # Baso # Seg Neutrophils % Seg Neuts % (Manual) Lymphocytes % (Manual) Monocytes % (Manual) Eosinophils % (Manual) Basophils % (Manual) Nucleated RBC % Seg Neutrophils # Seg Neutrophils # Man Lymphocytes # (Manual) Monocytes # (Manual) Eosinophils # (Manual) Basophils # (Manual) PT INR Fibrinogen dRVVT Confirm Interp Factor V Activity POC ABG pH POC ABG pCO2 27.0 L POC ABG pO2 69 L ABG pO2 ABG HCO3 ABG Base Excess ABG Hemoglobin Oxyhemoglobin Sodium Potassium Chloride Carbon Dioxide BUN Creatinine Glucose POC Glucose 121 H 128 H Lactic Acid Calcium Phosphorus Magnesium Direct Bilirubin AST ALT Alkaline Phosphatase Lactate Dehydrogenase Troponin T C-Reactive Protein Total Protein Albumin Prealbumin Triglycerides Cholesterol LDL Cholesterol Direct HDL Cholesterol Urine pH Urine WBC (Auto) Urine Creatinine Urine Total Protein Fluid Total Protein Vancomycin Trough Rheumatoid Factor Complement C4 Miscellaneous Test Crossmatch 09/26/16 09/26/16 09/27/16 18:31 23:40 08:20 WBC RBC Hgb Hct MCV MCH MCHC RDW Plt Count Lymph % (Auto) [place] % (Auto) Lymph # [place] # Baso # Seg Neutrophils % Seg Neuts % (Manual) Lymphocytes % (Manual) Monocytes % (Manual) Eosinophils % (Manual) Basophils % (Manual) Nucleated RBC % Seg Neutrophils # Seg Neutrophils # Man Lymphocytes # (Manual) Monocytes # (Manual) Eosinophils # (Manual) Basophils # (Manual) PT INR Fibrinogen dRVVT Confirm Interp Factor V Activity POC ABG pH POC ABG pCO2 POC ABG pO2 ABG pO2 ABG HCO3 ABG Base Excess ABG Hemoglobin Oxyhemoglobin Sodium Potassium Chloride Carbon Dioxide BUN Creatinine Glucose POC Glucose 120 H 133 H Lactic Acid 4.10 H* Calcium Phosphorus Magnesium Direct Bilirubin AST ALT Alkaline Phosphatase Lactate Dehydrogenase Troponin T C-Reactive Protein Total Protein Albumin Prealbumin Triglycerides Cholesterol LDL Cholesterol Direct HDL Cholesterol Urine pH Urine WBC (Auto) Urine Creatinine Urine Total Protein Fluid Total Protein Vancomycin Trough Rheumatoid Factor Complement C4 Miscellaneous Test Crossmatch 09/27/16 09/27/16 09/27/16 11:23 15:00 18:15 WBC RBC Hgb Hct MCV MCH MCHC RDW Plt Count Lymph % (Auto) [place] % (Auto) Lymph # [place] # Baso # Seg Neutrophils % Seg Neuts % (Manual) Lymphocytes % (Manual) Monocytes % (Manual) Eosinophils % (Manual) Basophils % (Manual) Nucleated RBC % Seg Neutrophils # Seg Neutrophils # Man Lymphocytes # (Manual) Monocytes # (Manual) Eosinophils # (Manual) Basophils # (Manual) PT INR Fibrinogen dRVVT Confirm Interp Factor V Activity POC ABG pH 7.459 H POC ABG pCO2 27.1 L POC ABG pO2 140 H ABG pO2 ABG HCO3 ABG Base Excess ABG Hemoglobin Oxyhemoglobin Sodium Potassium Chloride Carbon Dioxide BUN Creatinine Glucose POC Glucose 114 H 127 H Lactic Acid Calcium Phosphorus Magnesium Direct Bilirubin AST ALT Alkaline Phosphatase Lactate Dehydrogenase Troponin T C-Reactive Protein Total Protein Albumin Prealbumin Triglycerides Cholesterol LDL Cholesterol Direct HDL Cholesterol Urine pH Urine WBC (Auto) Urine Creatinine Urine Total Protein Fluid Total Protein Vancomycin Trough Rheumatoid Factor Complement C4 Miscellaneous Test Crossmatch 09/27/16 09/27/16 09/28/16 Unknown Unknown 03:45 WBC RBC 2.49 L Hgb 6.8 L Hct 20.7 L MCV MCH 27 L MCHC RDW 22.1 H Plt Count Lymph % (Auto) [place] % (Auto) Lymph # [place] # Baso # Seg Neutrophils % Seg Neuts % (Manual) 32.0 L Lymphocytes % (Manual) 12.0 L Monocytes % (Manual) 11.0 H Eosinophils % (Manual) 10.0 H Basophils % (Manual) Nucleated RBC % Seg Neutrophils # Seg Neutrophils # Man Lymphocytes # (Manual) 1.0 L Monocytes # (Manual) 0.9 H Eosinophils # (Manual) 0.8 H Basophils # (Manual) PT INR Fibrinogen dRVVT Confirm Interp Factor V Activity POC ABG pH POC ABG pCO2 POC ABG pO2 ABG pO2 ABG HCO3 ABG Base Excess ABG Hemoglobin Oxyhemoglobin Sodium 135 L 135 L Potassium 3.5 L Chloride 93.6 L 94.4 L Carbon Dioxide 17 L 21 L BUN 45 H 28 H Creatinine 3.3 H 2.5 H Glucose 106 H POC Glucose Lactic Acid Calcium 7.3 L 7.1 L Phosphorus Magnesium Direct Bilirubin AST ALT Alkaline Phosphatase Lactate Dehydrogenase Troponin T C-Reactive Protein Total Protein Albumin Prealbumin Triglycerides Cholesterol LDL Cholesterol Direct HDL Cholesterol Urine pH Urine WBC (Auto) Urine Creatinine Urine Total Protein Fluid Total Protein Vancomycin Trough Rheumatoid Factor Complement C4 Miscellaneous Test Crossmatch 09/28/16 09/28/16 09/28/16 03:45 07:25 11:58 WBC 13.3 H RBC 3.01 L Hgb 8.4 L Hct 25.0 L MCV MCH MCHC RDW 20.5 H Plt Count 128 L Lymph % (Auto) [place] % (Auto) Lymph # [place] # Baso # Seg Neutrophils % Seg Neuts % (Manual) Lymphocytes % (Manual) 7.0 L Monocytes % (Manual) Eosinophils % (Manual) 6.0 H Basophils % (Manual) Nucleated RBC % Seg Neutrophils # Seg Neutrophils # Man Lymphocytes # (Manual) 0.9 L Monocytes # (Manual) Eosinophils # (Manual) 0.8 H Basophils # (Manual) PT INR Fibrinogen dRVVT Confirm Interp Factor V Activity POC ABG pH POC ABG pCO2 POC ABG pO2 ABG pO2 ABG HCO3 ABG Base Excess ABG Hemoglobin Oxyhemoglobin Sodium Potassium Chloride Carbon Dioxide BUN Creatinine Glucose POC Glucose 121 H Lactic Acid 4.50 H* Calcium Phosphorus Magnesium Direct Bilirubin AST ALT Alkaline Phosphatase Lactate Dehydrogenase Troponin T C-Reactive Protein Total Protein Albumin Prealbumin Triglycerides Cholesterol LDL Cholesterol Direct HDL Cholesterol Urine pH Urine WBC (Auto) Urine Creatinine Urine Total Protein Fluid Total Protein Vancomycin Trough Rheumatoid Factor Complement C4 Miscellaneous Test Crossmatch 09/29/16 09/29/16 09/29/16 06:45 06:45 06:45 WBC 14.9 H RBC 2.74 L Hgb 7.6 L Hct 23.2 L MCV MCH MCHC RDW 20.5 H Plt Count 81 L Lymph % (Auto) [place] % (Auto) Lymph # [place] # Baso # Seg Neutrophils % Seg Neuts % (Manual) 81.0 H Lymphocytes % (Manual) 4.0 L Monocytes % (Manual) Eosinophils % (Manual) Basophils % (Manual) Nucleated RBC % Seg Neutrophils # Seg Neutrophils # Man 12.1 H Lymphocytes # (Manual) 0.6 L Monocytes # (Manual) Eosinophils # (Manual) Basophils # (Manual) PT INR Fibrinogen dRVVT Confirm Interp Factor V Activity POC ABG pH POC ABG pCO2 POC ABG pO2 ABG pO2 ABG HCO3 ABG Base Excess ABG Hemoglobin Oxyhemoglobin Sodium 133 L Potassium 3.4 L Chloride 92.5 L Carbon Dioxide 21 L BUN 33 H Creatinine 3.0 H Glucose POC Glucose Lactic Acid Calcium 6.6 L Phosphorus Magnesium 1.40 L Direct Bilirubin 0.9 H AST ALT Alkaline Phosphatase Lactate Dehydrogenase Troponin T C-Reactive Protein Total Protein 4.3 L Albumin 1.3 L Prealbumin Triglycerides Cholesterol LDL Cholesterol Direct HDL Cholesterol Urine pH Urine WBC (Auto) Urine Creatinine Urine Total Protein Fluid Total Protein Vancomycin Trough Rheumatoid Factor Complement C4 Miscellaneous Test Crossmatch 09/29/16 09/29/16 09/30/16 17:52 20:12 00:07 WBC RBC Hgb Hct MCV MCH MCHC RDW Plt Count Lymph % (Auto) [place] % (Auto) Lymph # [place] # Baso # Seg Neutrophils % Seg Neuts % (Manual) Lymphocytes % (Manual) Monocytes % (Manual) Eosinophils % (Manual) Basophils % (Manual) Nucleated RBC % Seg Neutrophils # Seg Neutrophils # Man Lymphocytes # (Manual) Monocytes # (Manual) Eosinophils # (Manual) Basophils # (Manual) PT INR Fibrinogen dRVVT Confirm Interp Factor V Activity POC ABG pH POC ABG pCO2 POC ABG pO2 ABG pO2 ABG HCO3 ABG Base Excess ABG Hemoglobin Oxyhemoglobin Sodium Potassium Chloride Carbon Dioxide BUN Creatinine Glucose POC Glucose 50 L 51 L Lactic Acid Calcium Phosphorus Magnesium Direct Bilirubin AST ALT Alkaline Phosphatase Lactate Dehydrogenase Troponin T 0.204 H* C-Reactive Protein Total Protein Albumin Prealbumin Triglycerides Cholesterol 31 L LDL Cholesterol Direct 4 L HDL Cholesterol 3 L Urine pH Urine WBC (Auto) Urine Creatinine Urine Total Protein Fluid Total Protein Vancomycin Trough Rheumatoid Factor Complement C4 Miscellaneous Test Crossmatch 09/30/16 09/30/16 09/30/16 01:30 05:15 06:10 WBC RBC Hgb Hct MCV MCH MCHC RDW Plt Count Lymph % (Auto) [place] % (Auto) Lymph # [place] # Baso # Seg Neutrophils % Seg Neuts % (Manual) Lymphocytes % (Manual) Monocytes % (Manual) Eosinophils % (Manual) Basophils % (Manual) Nucleated RBC % Seg Neutrophils # Seg Neutrophils # Man Lymphocytes # (Manual) Monocytes # (Manual) Eosinophils # (Manual) Basophils # (Manual) PT INR Fibrinogen dRVVT Confirm Interp Factor V Activity POC ABG pH POC ABG pCO2 POC ABG pO2 ABG pO2 ABG HCO3 ABG Base Excess ABG Hemoglobin Oxyhemoglobin Sodium 133 L Potassium 3.2 L Chloride 93.2 L Carbon Dioxide 19 L BUN 36 H Creatinine 3.2 H Glucose 104 H POC Glucose 167 H 146 H Lactic Acid Calcium 6.4 L Phosphorus Magnesium 1.60 L Direct Bilirubin AST ALT Alkaline Phosphatase Lactate Dehydrogenase Troponin T C-Reactive Protein Total Protein Albumin Prealbumin Triglycerides Cholesterol LDL Cholesterol Direct HDL Cholesterol Urine pH Urine WBC (Auto) Urine Creatinine Urine Total Protein Fluid Total Protein Vancomycin Trough Rheumatoid Factor Complement C4 Miscellaneous Test Crossmatch 09/30/16 09/30/16 09/30/16 11:26 13:39 18:38 WBC RBC Hgb Hct MCV MCH MCHC RDW Plt Count Lymph % (Auto) [place] % (Auto) Lymph # [place] # Baso # Seg Neutrophils % Seg Neuts % (Manual) Lymphocytes % (Manual) Monocytes % (Manual) Eosinophils % (Manual) Basophils % (Manual) Nucleated RBC % Seg Neutrophils # Seg Neutrophils # Man Lymphocytes # (Manual) Monocytes # (Manual) Eosinophils # (Manual) Basophils # (Manual) PT INR Fibrinogen dRVVT Confirm Interp Factor V Activity POC ABG pH 7.479 H POC ABG pCO2 29.8 L POC ABG pO2 117 H ABG pO2 ABG HCO3 ABG Base Excess ABG Hemoglobin Oxyhemoglobin Sodium Potassium Chloride Carbon Dioxide BUN Creatinine Glucose POC Glucose 140 H 122 H Lactic Acid Calcium Phosphorus Magnesium Direct Bilirubin AST ALT Alkaline Phosphatase Lactate Dehydrogenase Troponin T C-Reactive Protein Total Protein Albumin Prealbumin Triglycerides Cholesterol LDL Cholesterol Direct HDL Cholesterol Urine pH Urine WBC (Auto) Urine Creatinine Urine Total Protein Fluid Total Protein Vancomycin Trough Rheumatoid Factor Complement C4 Miscellaneous Test Crossmatch 10/01/16 10/01/16 10/01/16 06:00 06:00 12:37 WBC 12.6 H RBC 2.75 L Hgb 7.3 L Hct 23.3 L MCV MCH 27 L MCHC RDW 20.6 H Plt Count 72 L Lymph % (Auto) [place] % (Auto) Lymph # [place] # Baso # Seg Neutrophils % Seg Neuts % (Manual) 31.0 L Lymphocytes % (Manual) 8.0 L Monocytes % (Manual) Eosinophils % (Manual) Basophils % (Manual) Nucleated RBC % 3.0 H Seg Neutrophils # Seg Neutrophils # Man Lymphocytes # (Manual) 1.0 L Monocytes # (Manual) Eosinophils # (Manual) Basophils # (Manual) PT INR Fibrinogen dRVVT Confirm Interp Factor V Activity POC ABG pH POC ABG pCO2 POC ABG pO2 ABG pO2 ABG HCO3 ABG Base Excess ABG Hemoglobin Oxyhemoglobin Sodium 127 L Potassium Chloride 86.8 L Carbon Dioxide 20 L BUN 42 H Creatinine 3.5 H Glucose POC Glucose 65 L Lactic Acid Calcium 7.0 L Phosphorus Magnesium Direct Bilirubin AST ALT Alkaline Phosphatase Lactate Dehydrogenase Troponin T C-Reactive Protein Total Protein Albumin Prealbumin Triglycerides Cholesterol LDL Cholesterol Direct HDL Cholesterol Urine pH Urine WBC (Auto) Urine Creatinine Urine Total Protein Fluid Total Protein Vancomycin Trough Rheumatoid Factor Complement C4 Miscellaneous Test Crossmatch 10/01/16 10/01/16 10/02/16 17:39 23:32 00:59 WBC RBC Hgb Hct MCV MCH MCHC RDW Plt Count Lymph % (Auto) [place] % (Auto) Lymph # [place] # Baso # Seg Neutrophils % Seg Neuts % (Manual) Lymphocytes % (Manual) Monocytes % (Manual) Eosinophils % (Manual) Basophils % (Manual) Nucleated RBC % Seg Neutrophils # Seg Neutrophils # Man Lymphocytes # (Manual) Monocytes # (Manual) Eosinophils # (Manual) Basophils # (Manual) PT INR Fibrinogen dRVVT Confirm Interp Factor V Activity POC ABG pH POC ABG pCO2 POC ABG pO2 ABG pO2 ABG HCO3 ABG Base Excess ABG Hemoglobin Oxyhemoglobin Sodium Potassium Chloride Carbon Dioxide BUN Creatinine Glucose POC Glucose 107 H 52 L 145 H Lactic Acid Calcium Phosphorus Magnesium Direct Bilirubin AST ALT Alkaline Phosphatase Lactate Dehydrogenase Troponin T C-Reactive Protein Total Protein Albumin Prealbumin Triglycerides Cholesterol LDL Cholesterol Direct HDL Cholesterol Urine pH Urine WBC (Auto) Urine Creatinine Urine Total Protein Fluid Total Protein Vancomycin Trough Rheumatoid Factor Complement C4 Miscellaneous Test Crossmatch 10/02/16 10/02/16 10/02/16 10:30 10:50 10:50 WBC 14.7 H RBC 2.76 L Hgb 7.4 L Hct 23.6 L MCV MCH 27 L MCHC RDW 20.2 H Plt Count 79 L Lymph % (Auto) [place] % (Auto) Lymph # [place] # Baso # Seg Neutrophils % Seg Neuts % (Manual) 86.0 H Lymphocytes % (Manual) 6.0 L Monocytes % (Manual) Eosinophils % (Manual) Basophils % (Manual) Nucleated RBC % Seg Neutrophils # Seg Neutrophils # Man 12.6 H Lymphocytes # (Manual) 0.9 L Monocytes # (Manual) Eosinophils # (Manual) Basophils # (Manual) PT INR Fibrinogen dRVVT Confirm Interp Factor V Activity POC ABG pH 7.486 H POC ABG pCO2 30.1 L POC ABG pO2 108 H ABG pO2 ABG HCO3 ABG Base Excess ABG Hemoglobin Oxyhemoglobin Sodium 131 L Potassium 3.4 L Chloride 89.9 L Carbon Dioxide BUN 26 H Creatinine 2.6 H Glucose POC Glucose Lactic Acid Calcium 7.0 L Phosphorus Magnesium Direct Bilirubin AST ALT Alkaline Phosphatase Lactate Dehydrogenase Troponin T C-Reactive Protein Total Protein Albumin Prealbumin Triglycerides Cholesterol LDL Cholesterol Direct HDL Cholesterol Urine pH Urine WBC (Auto) Urine Creatinine Urine Total Protein Fluid Total Protein Vancomycin Trough Rheumatoid Factor Complement C4 Miscellaneous Test Crossmatch 10/02/16 10/03/16 10/03/16 23:45 00:45 05:10 WBC 12.9 H RBC 2.77 L Hgb 7.6 L Hct 23.7 L MCV MCH 27 L MCHC RDW 19.7 H Plt Count 89 L Lymph % (Auto) [place] % (Auto) Lymph # [place] # Baso # Seg Neutrophils % Seg Neuts % (Manual) Lymphocytes % (Manual) 8.0 L Monocytes % (Manual) Eosinophils % (Manual) Basophils % (Manual) Nucleated RBC % Seg Neutrophils # 11.9 H Seg Neutrophils # Man Lymphocytes # (Manual) 1.0 L Monocytes # (Manual) Eosinophils # (Manual) Basophils # (Manual) PT INR Fibrinogen dRVVT Confirm Interp Factor V Activity POC ABG pH POC ABG pCO2 POC ABG pO2 ABG pO2 ABG HCO3 ABG Base Excess ABG Hemoglobin Oxyhemoglobin Sodium Potassium Chloride Carbon Dioxide BUN Creatinine Glucose POC Glucose 55 L 199 H Lactic Acid Calcium Phosphorus Magnesium Direct Bilirubin AST ALT Alkaline Phosphatase Lactate Dehydrogenase Troponin T C-Reactive Protein Total Protein Albumin Prealbumin Triglycerides Cholesterol LDL Cholesterol Direct HDL Cholesterol Urine pH Urine WBC (Auto) Urine Creatinine Urine Total Protein Fluid Total Protein Vancomycin Trough Rheumatoid Factor Complement C4 Miscellaneous Test Crossmatch 10/03/16 10/03/16 10/03/16 05:10 12:14 13:18 WBC RBC Hgb Hct MCV MCH MCHC RDW Plt Count Lymph % (Auto) [place] % (Auto) Lymph # [place] # Baso # Seg Neutrophils % Seg Neuts % (Manual) Lymphocytes % (Manual) Monocytes % (Manual) Eosinophils % (Manual) Basophils % (Manual) Nucleated RBC % Seg Neutrophils # Seg Neutrophils # Man Lymphocytes # (Manual) Monocytes # (Manual) Eosinophils # (Manual) Basophils # (Manual) PT INR Fibrinogen dRVVT Confirm Interp Factor V Activity POC ABG pH POC ABG pCO2 POC ABG pO2 ABG pO2 ABG HCO3 ABG Base Excess ABG Hemoglobin Oxyhemoglobin Sodium 129 L Potassium 3.3 L Chloride 88.8 L Carbon Dioxide 20 L BUN 29 H Creatinine 2.8 H Glucose POC Glucose 68 L 127 H Lactic Acid Calcium 7.2 L Phosphorus Magnesium Direct Bilirubin AST ALT Alkaline Phosphatase Lactate Dehydrogenase Troponin T C-Reactive Protein Total Protein Albumin Prealbumin Triglycerides Cholesterol LDL Cholesterol Direct HDL Cholesterol Urine pH Urine WBC (Auto) Urine Creatinine Urine Total Protein Fluid Total Protein Vancomycin Trough Rheumatoid Factor Complement C4 Miscellaneous Test Crossmatch 10/03/16 10/03/16 10/03/16 14:42 18:21 19:09 WBC RBC Hgb Hct MCV MCH MCHC RDW Plt Count Lymph % (Auto) [place] % (Auto) Lymph # [place] # Baso # Seg Neutrophils % Seg Neuts % (Manual) Lymphocytes % (Manual) Monocytes % (Manual) Eosinophils % (Manual) Basophils % (Manual) Nucleated RBC % Seg Neutrophils # Seg Neutrophils # Man Lymphocytes # (Manual) Monocytes # (Manual) Eosinophils # (Manual) Basophils # (Manual) PT INR Fibrinogen dRVVT Confirm Interp Factor V Activity POC ABG pH 7.499 H POC ABG pCO2 28.4 L POC ABG pO2 44 L ABG pO2 ABG HCO3 ABG Base Excess ABG Hemoglobin Oxyhemoglobin Sodium Potassium Chloride Carbon Dioxide BUN Creatinine Glucose POC Glucose 64 L 205 H Lactic Acid Calcium Phosphorus Magnesium Direct Bilirubin AST ALT Alkaline Phosphatase Lactate Dehydrogenase Troponin T C-Reactive Protein Total Protein Albumin Prealbumin Triglycerides Cholesterol LDL Cholesterol Direct HDL Cholesterol Urine pH Urine WBC (Auto) Urine Creatinine Urine Total Protein Fluid Total Protein Vancomycin Trough Rheumatoid Factor Complement C4 Miscellaneous Test Crossmatch 10/03/16 10/04/16 10/04/16 23:33 04:18 06:30 WBC RBC 2.54 L Hgb 7.1 L Hct 21.7 L MCV MCH MCHC RDW 19.5 H Plt Count 76 L Lymph % (Auto) [place] % (Auto) Lymph # [place] # Baso # Seg Neutrophils % Seg Neuts % (Manual) 88.0 H Lymphocytes % (Manual) 6.0 L Monocytes % (Manual) Eosinophils % (Manual) Basophils % (Manual) Nucleated RBC % Seg Neutrophils # Seg Neutrophils # Man 8.8 H Lymphocytes # (Manual) 0.6 L Monocytes # (Manual) Eosinophils # (Manual) Basophils # (Manual) PT INR Fibrinogen dRVVT Confirm Interp Factor V Activity POC ABG pH 7.461 H POC ABG pCO2 33.6 L POC ABG pO2 211 H ABG pO2 ABG HCO3 ABG Base Excess ABG Hemoglobin Oxyhemoglobin Sodium Potassium Chloride Carbon Dioxide BUN Creatinine Glucose POC Glucose 136 H Lactic Acid Calcium Phosphorus Magnesium Direct Bilirubin AST ALT Alkaline Phosphatase Lactate Dehydrogenase Troponin T C-Reactive Protein Total Protein Albumin Prealbumin Triglycerides Cholesterol LDL Cholesterol Direct HDL Cholesterol Urine pH Urine WBC (Auto) Urine Creatinine Urine Total Protein Fluid Total Protein Vancomycin Trough Rheumatoid Factor Complement C4 Miscellaneous Test Crossmatch 10/04/16 10/04/16 10/04/16 06:30 11:45 17:54 WBC RBC Hgb Hct MCV MCH MCHC RDW Plt Count Lymph % (Auto) [place] % (Auto) Lymph # [place] # Baso # Seg Neutrophils % Seg Neuts % (Manual) Lymphocytes % (Manual) Monocytes % (Manual) Eosinophils % (Manual) Basophils % (Manual) Nucleated RBC % Seg Neutrophils # Seg Neutrophils # Man Lymphocytes # (Manual) Monocytes # (Manual) Eosinophils # (Manual) Basophils # (Manual) PT INR Fibrinogen dRVVT Confirm Interp Factor V Activity POC ABG pH POC ABG pCO2 POC ABG pO2 ABG pO2 ABG HCO3 ABG Base Excess ABG Hemoglobin Oxyhemoglobin Sodium 128 L Potassium Chloride 87.4 L Carbon Dioxide 20 L BUN 34 H Creatinine 2.9 H Glucose 127 H POC Glucose 158 H 160 H Lactic Acid Calcium 7.4 L Phosphorus Magnesium Direct Bilirubin AST ALT Alkaline Phosphatase Lactate Dehydrogenase Troponin T C-Reactive Protein Total Protein Albumin Prealbumin Triglycerides Cholesterol LDL Cholesterol Direct HDL Cholesterol Urine pH Urine WBC (Auto) Urine Creatinine Urine Total Protein Fluid Total Protein Vancomycin Trough Rheumatoid Factor Complement C4 Miscellaneous Test Crossmatch 10/04/16 10/05/16 10/05/16 23:25 04:30 05:00 WBC RBC 2.64 L Hgb 7.5 L Hct 22.6 L MCV MCH MCHC RDW 19.3 H Plt Count 80 L Lymph % (Auto) [place] % (Auto) Lymph # [place] # Baso # Seg Neutrophils % Seg Neuts % (Manual) Lymphocytes % (Manual) 12.0 L Monocytes % (Manual) Eosinophils % (Manual) Basophils % (Manual) Nucleated RBC % Seg Neutrophils # Seg Neutrophils # Man Lymphocytes # (Manual) Monocytes # (Manual) Eosinophils # (Manual) Basophils # (Manual) PT INR Fibrinogen dRVVT Confirm Interp Factor V Activity POC ABG pH 7.475 H POC ABG pCO2 33.3 L POC ABG pO2 140 H ABG pO2 ABG HCO3 ABG Base Excess ABG Hemoglobin Oxyhemoglobin Sodium Potassium Chloride Carbon Dioxide BUN Creatinine Glucose POC Glucose 141 H Lactic Acid Calcium Phosphorus Magnesium Direct Bilirubin AST ALT Alkaline Phosphatase Lactate Dehydrogenase Troponin T C-Reactive Protein Total Protein Albumin Prealbumin Triglycerides Cholesterol LDL Cholesterol Direct HDL Cholesterol Urine pH Urine WBC (Auto) Urine Creatinine Urine Total Protein Fluid Total Protein Vancomycin Trough Rheumatoid Factor Complement C4 Miscellaneous Test Crossmatch 10/05/16 10/05/16 10/05/16 05:00 05:09 12:58 WBC RBC Hgb Hct MCV MCH MCHC RDW Plt Count Lymph % (Auto) [place] % (Auto) Lymph # [place] # Baso # Seg Neutrophils % Seg Neuts % (Manual) Lymphocytes % (Manual) Monocytes % (Manual) Eosinophils % (Manual) Basophils % (Manual) Nucleated RBC % Seg Neutrophils # Seg Neutrophils # Man Lymphocytes # (Manual) Monocytes # (Manual) Eosinophils # (Manual) Basophils # (Manual) PT INR Fibrinogen dRVVT Confirm Interp Factor V Activity POC ABG pH POC ABG pCO2 POC ABG pO2 ABG pO2 ABG HCO3 ABG Base Excess ABG Hemoglobin Oxyhemoglobin Sodium 131 L Potassium Chloride 94.0 L Carbon Dioxide 20 L BUN 22 H Creatinine 2.0 H Glucose 123 H POC Glucose 166 H 179 H Lactic Acid Calcium 7.7 L Phosphorus 2.20 L D Magnesium Direct Bilirubin AST ALT Alkaline Phosphatase Lactate Dehydrogenase Troponin T C-Reactive Protein Total Protein Albumin Prealbumin Triglycerides Cholesterol LDL Cholesterol Direct HDL Cholesterol Urine pH Urine WBC (Auto) Urine Creatinine Urine Total Protein Fluid Total Protein Vancomycin Trough Rheumatoid Factor Complement C4 Miscellaneous Test Crossmatch 08/10/05/16 10/05/16 15:50 18:53 23:12 WBC RBC Hgb Hct MCV MCH MCHC RDW Plt Count Lymph % (Auto) [place] % (Auto) Lymph # [place] # Baso # Seg Neutrophils % Seg Neuts % (Manual) Lymphocytes % (Manual) Monocytes % (Manual) Eosinophils % (Manual) Basophils % (Manual) Nucleated RBC % Seg Neutrophils # Seg Neutrophils # Man Lymphocytes # (Manual) Monocytes # (Manual) Eosinophils # (Manual) Basophils # (Manual) PT INR Fibrinogen dRVVT Confirm Interp Factor V Activity POC ABG pH POC ABG pCO2 POC ABG pO2 ABG pO2 ABG HCO3 ABG Base Excess ABG Hemoglobin Oxyhemoglobin Sodium Potassium Chloride Carbon Dioxide BUN Creatinine Glucose POC Glucose 150 H 164 H Lactic Acid Calcium Phosphorus Magnesium Direct Bilirubin AST ALT Alkaline Phosphatase Lactate Dehydrogenase Troponin T C-Reactive Protein Total Protein Albumin Prealbumin Triglycerides Cholesterol LDL Cholesterol Direct HDL Cholesterol Urine pH Urine WBC (Auto) Urine Creatinine Urine Total Protein Fluid Total Protein Vancomycin Trough Rheumatoid Factor Complement C4 Miscellaneous Test Crossmatch See Detail 10/06/16 10/06/16 10/06/16 03:50 03:50 04:53 WBC RBC 3.00 L Hgb 8.6 L Hct 25.8 L MCV MCH MCHC RDW 17.9 H Plt Count 65 L Lymph % (Auto) [place] % (Auto) Lymph # [place] # Baso # Seg Neutrophils % Seg Neuts % (Manual) 30.0 L Lymphocytes % (Manual) 5.0 L Monocytes % (Manual) Eosinophils % (Manual) Basophils % (Manual) Nucleated RBC % Seg Neutrophils # Seg Neutrophils # Man Lymphocytes # (Manual) 0.4 L Monocytes # (Manual) Eosinophils # (Manual) Basophils # (Manual) PT INR Fibrinogen dRVVT Confirm Interp Factor V Activity POC ABG pH 7.310 L POC ABG pCO2 49.0 H POC ABG pO2 ABG pO2 ABG HCO3 ABG Base Excess ABG Hemoglobin Oxyhemoglobin Sodium 133 L Potassium Chloride 95.9 L Carbon Dioxide BUN 26 H Creatinine 2.0 H Glucose 116 H POC Glucose Lactic Acid Calcium 7.8 L Phosphorus Magnesium Direct Bilirubin AST ALT Alkaline Phosphatase Lactate Dehydrogenase Troponin T C-Reactive Protein Total Protein Albumin Prealbumin Triglycerides Cholesterol LDL Cholesterol Direct HDL Cholesterol Urine pH Urine WBC (Auto) Urine Creatinine Urine Total Protein Fluid Total Protein Vancomycin Trough Rheumatoid Factor Complement C4 Miscellaneous Test Crossmatch 10/06/16 10/06/16 10/06/16 05:23 11:52 18:34 WBC RBC Hgb Hct MCV MCH MCHC RDW Plt Count Lymph % (Auto) [place] % (Auto) Lymph # [place] # Baso # Seg Neutrophils % Seg Neuts % (Manual) Lymphocytes % (Manual) Monocytes % (Manual) Eosinophils % (Manual) Basophils % (Manual) Nucleated RBC % Seg Neutrophils # Seg Neutrophils # Man Lymphocytes # (Manual) Monocytes # (Manual) Eosinophils # (Manual) Basophils # (Manual) PT INR Fibrinogen dRVVT Confirm Interp Factor V Activity POC ABG pH POC ABG pCO2 POC ABG pO2 ABG pO2 ABG HCO3 ABG Base Excess ABG Hemoglobin Oxyhemoglobin Sodium Potassium Chloride Carbon Dioxide BUN Creatinine Glucose POC Glucose 126 H 116 H 129 H Lactic Acid Calcium Phosphorus Magnesium Direct Bilirubin AST ALT Alkaline Phosphatase Lactate Dehydrogenase Troponin T C-Reactive Protein Total Protein Albumin Prealbumin Triglycerides Cholesterol LDL Cholesterol Direct HDL Cholesterol Urine pH Urine WBC (Auto) Urine Creatinine Urine Total Protein Fluid Total Protein Vancomycin Trough Rheumatoid Factor Complement C4 Miscellaneous Test Crossmatch 10/07/16 10/07/16 10/07/16 03:45 05:00 10:00 WBC 17.0 H RBC 2.68 L Hgb 7.3 L Hct 25.3 L MCV MCH 27 L MCHC 29 L RDW 19.6 H Plt Count 74 L Lymph % (Auto) [place] % (Auto) Lymph # [place] # Baso # Seg Neutrophils % Seg Neuts % (Manual) Lymphocytes % (Manual) 12.0 L Monocytes % (Manual) Eosinophils % (Manual) Basophils % (Manual) Nucleated RBC % 4.0 H Seg Neutrophils # Seg Neutrophils # Man 10.7 H Lymphocytes # (Manual) Monocytes # (Manual) Eosinophils # (Manual) Basophils # (Manual) PT INR Fibrinogen dRVVT Confirm Interp Factor V Activity POC ABG pH POC ABG pCO2 POC ABG pO2 ABG pO2 ABG HCO3 ABG Base Excess ABG Hemoglobin Oxyhemoglobin Sodium 130 L Potassium 3.2 L Chloride 93.9 L Carbon Dioxide 20 L BUN 44 H Creatinine 2.7 H Glucose 129 H POC Glucose Lactic Acid Calcium 7.4 L Phosphorus Magnesium Direct Bilirubin AST ALT 6 L Alkaline Phosphatase 195 H Lactate Dehydrogenase Troponin T C-Reactive Protein Total Protein 4.9 L Albumin 1.0 L Prealbumin Triglycerides Cholesterol LDL Cholesterol Direct HDL Cholesterol Urine pH Urine WBC (Auto) Urine Creatinine Urine Total Protein Fluid Total Protein Vancomycin Trough Rheumatoid Factor Complement C4 Miscellaneous Test Flexitest 1 H Crossmatch 10/07/16 10/07/16 10/07/16 10:00 11:24 18:10 WBC RBC Hgb Hct MCV MCH MCHC RDW Plt Count Lymph % (Auto) [place] % (Auto) Lymph # [place] # Baso # Seg Neutrophils % Seg Neuts % (Manual) Lymphocytes % (Manual) Monocytes % (Manual) Eosinophils % (Manual) Basophils % (Manual) Nucleated RBC % Seg Neutrophils # Seg Neutrophils # Man Lymphocytes # (Manual) Monocytes # (Manual) Eosinophils # (Manual) Basophils # (Manual) PT INR Fibrinogen dRVVT Confirm Interp Factor V Activity POC ABG pH POC ABG pCO2 POC ABG pO2 ABG pO2 ABG HCO3 ABG Base Excess ABG Hemoglobin Oxyhemoglobin Sodium Potassium Chloride Carbon Dioxide BUN Creatinine Glucose POC Glucose 116 H 130 H Lactic Acid Calcium Phosphorus Magnesium Direct Bilirubin AST ALT Alkaline Phosphatase Lactate Dehydrogenase Troponin T C-Reactive Protein 19.40 H Total Protein Albumin Prealbumin Triglycerides Cholesterol LDL Cholesterol Direct HDL Cholesterol Urine pH Urine WBC (Auto) Urine Creatinine Urine Total Protein Fluid Total Protein Vancomycin Trough Rheumatoid Factor Complement C4 Miscellaneous Test Crossmatch 10/07/16 10/08/16 10/08/16 18:30 00:00 04:00 WBC RBC Hgb Hct MCV MCH MCHC RDW Plt Count Lymph % (Auto) [place] % (Auto) Lymph # [place] # Baso # Seg Neutrophils % Seg Neuts % (Manual) Lymphocytes % (Manual) Monocytes % (Manual) Eosinophils % (Manual) Basophils % (Manual) Nucleated RBC % Seg Neutrophils # Seg Neutrophils # Man Lymphocytes # (Manual) Monocytes # (Manual) Eosinophils # (Manual) Basophils # (Manual) PT INR Fibrinogen dRVVT Confirm Interp Factor V Activity POC ABG pH POC ABG pCO2 POC ABG pO2 ABG pO2 ABG HCO3 ABG Base Excess ABG Hemoglobin Oxyhemoglobin Sodium 132 L Potassium 3.3 L Chloride 93.6 L Carbon Dioxide 17 L BUN 59 H Creatinine 2.7 H Glucose 121 H POC Glucose 122 H Lactic Acid Calcium 7.6 L Phosphorus Magnesium Direct Bilirubin AST ALT Alkaline Phosphatase Lactate Dehydrogenase Troponin T C-Reactive Protein Total Protein Albumin Prealbumin Triglycerides Cholesterol LDL Cholesterol Direct HDL Cholesterol Urine pH Urine WBC (Auto) > 182.0 H Urine Creatinine Urine Total Protein Fluid Total Protein Vancomycin Trough Rheumatoid Factor Complement C4 Miscellaneous Test Crossmatch 10/08/16 10/08/16 10/08/16 04:30 05:30 11:51 WBC RBC 5.15 H Hgb 14.4 H D Hct 44.5 H D MCV MCH MCHC RDW 19.5 H Plt Count 56 L Lymph % (Auto) [place] % (Auto) Lymph # [place] # Baso # Seg Neutrophils % Seg Neuts % (Manual) 24.0 L Lymphocytes % (Manual) 8.0 L Monocytes % (Manual) Eosinophils % (Manual) Basophils % (Manual) Nucleated RBC % 9.0 H Seg Neutrophils # Seg Neutrophils # Man Lymphocytes # (Manual) 0.7 L Monocytes # (Manual) Eosinophils # (Manual) Basophils # (Manual) PT INR Fibrinogen dRVVT Confirm Interp Factor V Activity POC ABG pH POC ABG pCO2 POC ABG pO2 ABG pO2 ABG HCO3 ABG Base Excess ABG Hemoglobin Oxyhemoglobin Sodium Potassium Chloride Carbon Dioxide BUN Creatinine Glucose POC Glucose 125 H 150 H Lactic Acid Calcium Phosphorus Magnesium Direct Bilirubin AST ALT Alkaline Phosphatase Lactate Dehydrogenase Troponin T C-Reactive Protein Total Protein Albumin Prealbumin Triglycerides Cholesterol LDL Cholesterol Direct HDL Cholesterol Urine pH Urine WBC (Auto) Urine Creatinine Urine Total Protein Fluid Total Protein Vancomycin Trough Rheumatoid Factor Complement C4 Miscellaneous Test Crossmatch 10/08/16 10/08/16 10/08/16 12:49 17:07 19:30 WBC RBC Hgb 7.1 L D Hct 22.4 L D MCV MCH MCHC RDW Plt Count Lymph % (Auto) [place] % (Auto) Lymph # [place] # Baso # Seg Neutrophils % Seg Neuts % (Manual) Lymphocytes % (Manual) Monocytes % (Manual) Eosinophils % (Manual) Basophils % (Manual) Nucleated RBC % Seg Neutrophils # Seg Neutrophils # Man Lymphocytes # (Manual) Monocytes # (Manual) Eosinophils # (Manual) Basophils # (Manual) PT INR Fibrinogen dRVVT Confirm Interp Factor V Activity POC ABG pH POC ABG pCO2 28.2 L POC ABG pO2 111 H ABG pO2 ABG HCO3 ABG Base Excess ABG Hemoglobin Oxyhemoglobin Sodium Potassium Chloride Carbon Dioxide BUN Creatinine Glucose POC Glucose 145 H Lactic Acid Calcium Phosphorus Magnesium Direct Bilirubin AST ALT Alkaline Phosphatase Lactate Dehydrogenase Troponin T C-Reactive Protein Total Protein Albumin Prealbumin Triglycerides Cholesterol LDL Cholesterol Direct HDL Cholesterol Urine pH Urine WBC (Auto) Urine Creatinine Urine Total Protein Fluid Total Protein Vancomycin Trough Rheumatoid Factor Complement C4 Miscellaneous Test Crossmatch 10/08/16 10/09/16 10/09/16 19:30 03:45 03:45 WBC 12.6 H RBC 2.36 L Hgb 6.7 L Hct 21.1 L MCV MCH MCHC RDW 19.5 H Plt Count 75 L Lymph % (Auto) [place] % (Auto) Lymph # [place] # Baso # Seg Neutrophils % Seg Neuts % (Manual) Lymphocytes % (Manual) Monocytes % (Manual) 10.0 H Eosinophils % (Manual) Basophils % (Manual) Nucleated RBC % 3.0 H Seg Neutrophils # Seg Neutrophils # Man Lymphocytes # (Manual) Monocytes # (Manual) 1.3 H Eosinophils # (Manual) Basophils # (Manual) PT 18.0 H INR 1.41 H Fibrinogen dRVVT Confirm Interp Factor V Activity POC ABG pH POC ABG pCO2 POC ABG pO2 ABG pO2 ABG HCO3 ABG Base Excess ABG Hemoglobin Oxyhemoglobin Sodium 135 L Potassium Chloride Carbon Dioxide 17 L BUN 81 H Creatinine 3.2 H Glucose 109 H POC Glucose Lactic Acid Calcium 7.4 L Phosphorus 4.60 H D Magnesium Direct Bilirubin AST ALT Alkaline Phosphatase Lactate Dehydrogenase Troponin T C-Reactive Protein Total Protein Albumin Prealbumin Triglycerides Cholesterol LDL Cholesterol Direct HDL Cholesterol Urine pH Urine WBC (Auto) Urine Creatinine Urine Total Protein Fluid Total Protein Vancomycin Trough Rheumatoid Factor Complement C4 Miscellaneous Test Crossmatch 10/09/16 10/09/16 10/09/16 03:45 05:14 07:20 WBC RBC Hgb Hct MCV MCH MCHC RDW Plt Count Lymph % (Auto) [place] % (Auto) Lymph # [place] # Baso # Seg Neutrophils % Seg Neuts % (Manual) Lymphocytes % (Manual) Monocytes % (Manual) Eosinophils % (Manual) Basophils % (Manual) Nucleated RBC % Seg Neutrophils # Seg Neutrophils # Man Lymphocytes # (Manual) Monocytes # (Manual) Eosinophils # (Manual) Basophils # (Manual) PT 19.0 H INR 1.51 H Fibrinogen dRVVT Confirm Interp Factor V Activity POC ABG pH POC ABG pCO2 POC ABG pO2 ABG pO2 ABG HCO3 ABG Base Excess ABG Hemoglobin Oxyhemoglobin Sodium Potassium Chloride Carbon Dioxide BUN Creatinine Glucose POC Glucose 151 H Lactic Acid Calcium Phosphorus Magnesium Direct Bilirubin AST ALT Alkaline Phosphatase Lactate Dehydrogenase Troponin T C-Reactive Protein Total Protein Albumin Prealbumin Triglycerides Cholesterol LDL Cholesterol Direct HDL Cholesterol Urine pH Urine WBC (Auto) Urine Creatinine Urine Total Protein Fluid Total Protein Vancomycin Trough Rheumatoid Factor Complement C4 Miscellaneous Test Crossmatch See Detail 10/09/16 10/09/16 10/09/16 11:46 16:20 16:43 WBC RBC Hgb 7.2 L Hct 22.2 L MCV MCH MCHC RDW Plt Count Lymph % (Auto) [place] % (Auto) Lymph # [place] # Baso # Seg Neutrophils % Seg Neuts % (Manual) Lymphocytes % (Manual) Monocytes % (Manual) Eosinophils % (Manual) Basophils % (Manual) Nucleated RBC % Seg Neutrophils # Seg Neutrophils # Man Lymphocytes # (Manual) Monocytes # (Manual) Eosinophils # (Manual) Basophils # (Manual) PT INR Fibrinogen dRVVT Confirm Interp Factor V Activity POC ABG pH POC ABG pCO2 POC ABG pO2 ABG pO2 ABG HCO3 ABG Base Excess ABG Hemoglobin Oxyhemoglobin Sodium Potassium Chloride Carbon Dioxide BUN Creatinine Glucose POC Glucose 133 H 141 H Lactic Acid Calcium Phosphorus Magnesium Direct Bilirubin AST ALT Alkaline Phosphatase Lactate Dehydrogenase Troponin T C-Reactive Protein Total Protein Albumin Prealbumin Triglycerides Cholesterol LDL Cholesterol Direct HDL Cholesterol Urine pH Urine WBC (Auto) Urine Creatinine Urine Total Protein Fluid Total Protein Vancomycin Trough Rheumatoid Factor Complement C4 Miscellaneous Test Crossmatch 10/10/16 10/10/16 10/10/16 05:00 05:00 11:19 WBC 18.5 H RBC 2.19 L Hgb 6.4 L Hct 19.6 L* MCV MCH MCHC RDW 19.3 H Plt Count 93 L Lymph % (Auto) [place] % (Auto) Lymph # [place] # Baso # Seg Neutrophils % Seg Neuts % (Manual) Lymphocytes % (Manual) 10.0 L Monocytes % (Manual) Eosinophils % (Manual) Basophils % (Manual) Nucleated RBC % 4.0 H Seg Neutrophils # Seg Neutrophils # Man 11.3 H Lymphocytes # (Manual) Monocytes # (Manual) Eosinophils # (Manual) Basophils # (Manual) PT INR Fibrinogen dRVVT Confirm Interp Factor V Activity POC ABG pH POC ABG pCO2 POC ABG pO2 ABG pO2 ABG HCO3 ABG Base Excess ABG Hemoglobin Oxyhemoglobin Sodium Potassium 5.7 H D Chloride Carbon Dioxide 16 L BUN 94 H Creatinine 3.1 H Glucose 131 H POC Glucose 153 H Lactic Acid Calcium 8.2 L Phosphorus 5.10 H Magnesium 2.40 H Direct Bilirubin 0.3 H AST ALT < 5 L Alkaline Phosphatase 319 H Lactate Dehydrogenase Troponin T C-Reactive Protein Total Protein 5.1 L Albumin 1.0 L Prealbumin Triglycerides Cholesterol LDL Cholesterol Direct HDL Cholesterol Urine pH Urine WBC (Auto) Urine Creatinine Urine Total Protein Fluid Total Protein Vancomycin Trough Rheumatoid Factor Complement C4 Miscellaneous Test Crossmatch 10/10/16 10/10/16 10/11/16 17:50 23:30 04:15 WBC RBC Hgb Hct MCV MCH MCHC RDW Plt Count Lymph % (Auto) [place] % (Auto) Lymph # [place] # Baso # Seg Neutrophils % Seg Neuts % (Manual) Lymphocytes % (Manual) Monocytes % (Manual) Eosinophils % (Manual) Basophils % (Manual) Nucleated RBC % Seg Neutrophils # Seg Neutrophils # Man Lymphocytes # (Manual) Monocytes # (Manual) Eosinophils # (Manual) Basophils # (Manual) PT INR Fibrinogen dRVVT Confirm Interp Factor V Activity POC ABG pH POC ABG pCO2 POC ABG pO2 ABG pO2 ABG HCO3 ABG Base Excess ABG Hemoglobin Oxyhemoglobin Sodium Potassium Chloride 96.4 L Carbon Dioxide 21 L BUN 57 H Creatinine 2.1 H Glucose 151 H POC Glucose 146 H 141 H Lactic Acid Calcium 8.3 L Phosphorus Magnesium Direct Bilirubin AST ALT Alkaline Phosphatase Lactate Dehydrogenase Troponin T C-Reactive Protein Total Protein Albumin Prealbumin Triglycerides Cholesterol LDL Cholesterol Direct HDL Cholesterol Urine pH Urine WBC (Auto) Urine Creatinine Urine Total Protein Fluid Total Protein Vancomycin Trough Rheumatoid Factor Complement C4 Miscellaneous Test Crossmatch 10/11/16 10/11/16 10/11/16 04:15 04:15 05:30 WBC 28.3 H RBC 3.12 L Hgb 9.3 L Hct 28.7 L D MCV MCH MCHC RDW 17.7 H Plt Count 128 L Lymph % (Auto) [place] % (Auto) Lymph # [place] # Baso # Seg Neutrophils % Seg Neuts % (Manual) Lymphocytes % (Manual) Monocytes % (Manual) Eosinophils % (Manual) Basophils % (Manual) Nucleated RBC % Seg Neutrophils # Seg Neutrophils # Man Lymphocytes # (Manual) Monocytes # (Manual) Eosinophils # (Manual) Basophils # (Manual) PT INR Fibrinogen dRVVT Confirm Interp Factor V Activity POC ABG pH POC ABG pCO2 POC ABG pO2 ABG pO2 ABG HCO3 ABG Base Excess ABG Hemoglobin Oxyhemoglobin Sodium Potassium Chloride Carbon Dioxide BUN Creatinine Glucose POC Glucose 167 H Lactic Acid Calcium Phosphorus Magnesium Direct Bilirubin AST ALT Alkaline Phosphatase Lactate Dehydrogenase Troponin T C-Reactive Protein 15.80 H Total Protein Albumin Prealbumin Triglycerides Cholesterol LDL Cholesterol Direct HDL Cholesterol Urine pH Urine WBC (Auto) Urine Creatinine Urine Total Protein Fluid Total Protein Vancomycin Trough Rheumatoid Factor Complement C4 Miscellaneous Test Crossmatch 10/11/16 10/11/16 10/11/16 11:40 15:49 23:57 WBC RBC Hgb Hct MCV MCH MCHC RDW Plt Count Lymph % (Auto) [place] % (Auto) Lymph # [place] # Baso # Seg Neutrophils % Seg Neuts % (Manual) Lymphocytes % (Manual) Monocytes % (Manual) Eosinophils % (Manual) Basophils % (Manual) Nucleated RBC % Seg Neutrophils # Seg Neutrophils # Man Lymphocytes # (Manual) Monocytes # (Manual) Eosinophils # (Manual) Basophils # (Manual) PT INR Fibrinogen dRVVT Confirm Interp Factor V Activity POC ABG pH POC ABG pCO2 POC ABG pO2 ABG pO2 ABG HCO3 ABG Base Excess ABG Hemoglobin Oxyhemoglobin Sodium Potassium Chloride Carbon Dioxide BUN Creatinine Glucose POC Glucose 139 H 168 H 161 H Lactic Acid Calcium Phosphorus Magnesium Direct Bilirubin AST ALT Alkaline Phosphatase Lactate Dehydrogenase Troponin T C-Reactive Protein Total Protein Albumin Prealbumin Triglycerides Cholesterol LDL Cholesterol Direct HDL Cholesterol Urine pH Urine WBC (Auto) Urine Creatinine Urine Total Protein Fluid Total Protein Vancomycin Trough Rheumatoid Factor Complement C4 Miscellaneous Test Crossmatch 10/12/16 10/12/16 10/12/16 04:40 04:40 05:44 WBC 22.5 H RBC 2.88 L Hgb 8.8 L Hct 26.8 L MCV MCH MCHC RDW 17.8 H Plt Count Lymph % (Auto) [place] % (Auto) Lymph # [place] # Baso # Seg Neutrophils % Seg Neuts % (Manual) Lymphocytes % (Manual) Monocytes % (Manual) Eosinophils % (Manual) Basophils % (Manual) Nucleated RBC % Seg Neutrophils # Seg Neutrophils # Man Lymphocytes # (Manual) Monocytes # (Manual) Eosinophils # (Manual) Basophils # (Manual) PT INR Fibrinogen dRVVT Confirm Interp Factor V Activity POC ABG pH POC ABG pCO2 POC ABG pO2 ABG pO2 ABG HCO3 ABG Base Excess ABG Hemoglobin Oxyhemoglobin Sodium 134 L Potassium Chloride 93.0 L Carbon Dioxide BUN 74 H Creatinine 2.5 H Glucose 137 H POC Glucose 158 H Lactic Acid Calcium 8.2 L Phosphorus Magnesium Direct Bilirubin AST ALT Alkaline Phosphatase Lactate Dehydrogenase Troponin T C-Reactive Protein Total Protein Albumin Prealbumin Triglycerides Cholesterol LDL Cholesterol Direct HDL Cholesterol Urine pH Urine WBC (Auto) Urine Creatinine Urine Total Protein Fluid Total Protein Vancomycin Trough Rheumatoid Factor Complement C4 Miscellaneous Test Crossmatch 10/12/16 10/12/16 10/12/16 12:27 18:18 23:46 WBC RBC Hgb Hct MCV MCH MCHC RDW Plt Count Lymph % (Auto) [place] % (Auto) Lymph # [place] # Baso # Seg Neutrophils % Seg Neuts % (Manual) Lymphocytes % (Manual) Monocytes % (Manual) Eosinophils % (Manual) Basophils % (Manual) Nucleated RBC % Seg Neutrophils # Seg Neutrophils # Man Lymphocytes # (Manual) Monocytes # (Manual) Eosinophils # (Manual) Basophils # (Manual) PT INR Fibrinogen dRVVT Confirm Interp Factor V Activity POC ABG pH POC ABG pCO2 POC ABG pO2 ABG pO2 ABG HCO3 ABG Base Excess ABG Hemoglobin Oxyhemoglobin Sodium Potassium Chloride Carbon Dioxide BUN Creatinine Glucose POC Glucose 153 H 140 H 150 H Lactic Acid Calcium Phosphorus Magnesium Direct Bilirubin AST ALT Alkaline Phosphatase Lactate Dehydrogenase Troponin T C-Reactive Protein Total Protein Albumin Prealbumin Triglycerides Cholesterol LDL Cholesterol Direct HDL Cholesterol Urine pH Urine WBC (Auto) Urine Creatinine Urine Total Protein Fluid Total Protein Vancomycin Trough Rheumatoid Factor Complement C4 Miscellaneous Test Crossmatch 10/13/16 10/13/16 10/13/16 06:22 09:20 12:29 WBC RBC Hgb Hct MCV MCH MCHC RDW Plt Count Lymph % (Auto) [place] % (Auto) Lymph # [place] # Baso # Seg Neutrophils % Seg Neuts % (Manual) Lymphocytes % (Manual) Monocytes % (Manual) Eosinophils % (Manual) Basophils % (Manual) Nucleated RBC % Seg Neutrophils # Seg Neutrophils # Man Lymphocytes # (Manual) Monocytes # (Manual) Eosinophils # (Manual) Basophils # (Manual) PT INR Fibrinogen dRVVT Confirm Interp Factor V Activity POC ABG pH POC ABG pCO2 POC ABG pO2 ABG pO2 ABG HCO3 ABG Base Excess ABG Hemoglobin Oxyhemoglobin Sodium Potassium Chloride Carbon Dioxide BUN Creatinine Glucose POC Glucose 165 H 193 H Lactic Acid Calcium Phosphorus Magnesium Direct Bilirubin AST ALT Alkaline Phosphatase Lactate Dehydrogenase Troponin T C-Reactive Protein Total Protein Albumin Prealbumin Triglycerides Cholesterol LDL Cholesterol Direct HDL Cholesterol Urine pH Urine WBC (Auto) Urine Creatinine Urine Total Protein Fluid Total Protein Vancomycin Trough Rheumatoid Factor Complement C4 Miscellaneous Test Flexitest 1 H Crossmatch 10/13/16 10/13/16 10/13/16 18:09 Unknown Unknown WBC 23.4 H RBC 2.83 L Hgb 8.7 L Hct 26.1 L MCV MCH MCHC RDW 18.1 H Plt Count Lymph % (Auto) [place] % (Auto) Lymph # [place] # Baso # Seg Neutrophils % Seg Neuts % (Manual) Lymphocytes % (Manual) Monocytes % (Manual) Eosinophils % (Manual) Basophils % (Manual) Nucleated RBC % Seg Neutrophils # Seg Neutrophils # Man Lymphocytes # (Manual) Monocytes # (Manual) Eosinophils # (Manual) Basophils # (Manual) PT INR Fibrinogen dRVVT Confirm Interp Factor V Activity POC ABG pH POC ABG pCO2 POC ABG pO2 ABG pO2 ABG HCO3 ABG Base Excess ABG Hemoglobin Oxyhemoglobin Sodium Potassium Chloride 95.8 L Carbon Dioxide BUN 82 H Creatinine 2.6 H Glucose 152 H POC Glucose 166 H Lactic Acid Calcium Phosphorus Magnesium Direct Bilirubin AST ALT Alkaline Phosphatase Lactate Dehydrogenase Troponin T C-Reactive Protein Total Protein Albumin Prealbumin Triglycerides Cholesterol LDL Cholesterol Direct HDL Cholesterol Urine pH Urine WBC (Auto) Urine Creatinine Urine Total Protein Fluid Total Protein Vancomycin Trough Rheumatoid Factor Complement C4 Miscellaneous Test Crossmatch 10/14/16 10/14/16 10/14/16 05:38 06:35 08:10 WBC 20.7 H RBC 2.81 L Hgb 8.4 L Hct 27.2 L MCV MCH MCHC RDW 19.4 H Plt Count Lymph % (Auto) [place] % (Auto) Lymph # [place] # Baso # Seg Neutrophils % Seg Neuts % (Manual) Lymphocytes % (Manual) Monocytes % (Manual) Eosinophils % (Manual) Basophils % (Manual) Nucleated RBC % Seg Neutrophils # Seg Neutrophils # Man Lymphocytes # (Manual) Monocytes # (Manual) Eosinophils # (Manual) Basophils # (Manual) PT INR Fibrinogen dRVVT Confirm Interp Factor V Activity POC ABG pH POC ABG pCO2 POC ABG pO2 ABG pO2 ABG HCO3 ABG Base Excess ABG Hemoglobin Oxyhemoglobin Sodium Potassium Chloride Carbon Dioxide BUN 58 H Creatinine 1.9 H Glucose 169 H POC Glucose 195 H Lactic Acid Calcium Phosphorus Magnesium Direct Bilirubin AST ALT Alkaline Phosphatase Lactate Dehydrogenase Troponin T C-Reactive Protein Total Protein Albumin Prealbumin Triglycerides Cholesterol LDL Cholesterol Direct HDL Cholesterol Urine pH Urine WBC (Auto) Urine Creatinine Urine Total Protein Fluid Total Protein Vancomycin Trough Rheumatoid Factor Complement C4 Miscellaneous Test Crossmatch 10/14/16 10/14/16 10/14/16 11:44 17:13 23:28 WBC RBC Hgb Hct MCV MCH MCHC RDW Plt Count Lymph % (Auto) [place] % (Auto) Lymph # [place] # Baso # Seg Neutrophils % Seg Neuts % (Manual) Lymphocytes % (Manual) Monocytes % (Manual) Eosinophils % (Manual) Basophils % (Manual) Nucleated RBC % Seg Neutrophils # Seg Neutrophils # Man Lymphocytes # (Manual) Monocytes # (Manual) Eosinophils # (Manual) Basophils # (Manual) PT INR Fibrinogen dRVVT Confirm Interp Factor V Activity POC ABG pH POC ABG pCO2 POC ABG pO2 ABG pO2 ABG HCO3 ABG Base Excess ABG Hemoglobin Oxyhemoglobin Sodium Potassium Chloride Carbon Dioxide BUN Creatinine Glucose POC Glucose 174 H 121 H 151 H Lactic Acid Calcium Phosphorus Magnesium Direct Bilirubin AST ALT Alkaline Phosphatase Lactate Dehydrogenase Troponin T C-Reactive Protein Total Protein Albumin Prealbumin Triglycerides Cholesterol LDL Cholesterol Direct HDL Cholesterol Urine pH Urine WBC (Auto) Urine Creatinine Urine Total Protein Fluid Total Protein Vancomycin Trough Rheumatoid Factor Complement C4 Miscellaneous Test Crossmatch 10/15/16 10/15/16 10/15/16 05:06 12:26 17:48 WBC RBC Hgb Hct MCV MCH MCHC RDW Plt Count Lymph % (Auto) [place] % (Auto) Lymph # [place] # Baso # Seg Neutrophils % Seg Neuts % (Manual) Lymphocytes % (Manual) Monocytes % (Manual) Eosinophils % (Manual) Basophils % (Manual) Nucleated RBC % Seg Neutrophils # Seg Neutrophils # Man Lymphocytes # (Manual) Monocytes # (Manual) Eosinophils # (Manual) Basophils # (Manual) PT INR Fibrinogen dRVVT Confirm Interp Factor V Activity POC ABG pH POC ABG pCO2 POC ABG pO2 ABG pO2 ABG HCO3 ABG Base Excess ABG Hemoglobin Oxyhemoglobin Sodium Potassium Chloride Carbon Dioxide BUN Creatinine Glucose POC Glucose 151 H 149 H 153 H Lactic Acid Calcium Phosphorus Magnesium Direct Bilirubin AST ALT Alkaline Phosphatase Lactate Dehydrogenase Troponin T C-Reactive Protein Total Protein Albumin Prealbumin Triglycerides Cholesterol LDL Cholesterol Direct HDL Cholesterol Urine pH Urine WBC (Auto) Urine Creatinine Urine Total Protein Fluid Total Protein Vancomycin Trough Rheumatoid Factor Complement C4 Miscellaneous Test Crossmatch 10/15/16 10/15/16 10/16/16 Unknown Unknown 00:02 WBC 23.4 H RBC 2.78 L Hgb 8.5 L Hct 25.7 L MCV MCH MCHC RDW 18.7 H Plt Count Lymph % (Auto) [place] % (Auto) Lymph # [place] # Baso # Seg Neutrophils % Seg Neuts % (Manual) Lymphocytes % (Manual) Monocytes % (Manual) Eosinophils % (Manual) Basophils % (Manual) Nucleated RBC % Seg Neutrophils # Seg Neutrophils # Man Lymphocytes # (Manual) Monocytes # (Manual) Eosinophils # (Manual) Basophils # (Manual) PT INR Fibrinogen dRVVT Confirm Interp Factor V Activity POC ABG pH POC ABG pCO2 POC ABG pO2 ABG pO2 ABG HCO3 ABG Base Excess ABG Hemoglobin Oxyhemoglobin Sodium Potassium Chloride Carbon Dioxide BUN 73 H Creatinine 2.3 H Glucose 120 H POC Glucose 137 H Lactic Acid Calcium Phosphorus Magnesium Direct Bilirubin AST ALT Alkaline Phosphatase Lactate Dehydrogenase Troponin T C-Reactive Protein Total Protein Albumin Prealbumin Triglycerides Cholesterol LDL Cholesterol Direct HDL Cholesterol Urine pH Urine WBC (Auto) Urine Creatinine Urine Total Protein Fluid Total Protein Vancomycin Trough Rheumatoid Factor Complement C4 Miscellaneous Test Crossmatch 10/16/16 10/16/16 10/16/16 05:44 06:25 06:25 WBC 22.5 H RBC 2.76 L Hgb 8.3 L Hct 25.2 L MCV MCH MCHC RDW 18.3 H Plt Count Lymph % (Auto) [place] % (Auto) Lymph # [place] # Baso # Seg Neutrophils % Seg Neuts % (Manual) Lymphocytes % (Manual) Monocytes % (Manual) Eosinophils % (Manual) Basophils % (Manual) Nucleated RBC % Seg Neutrophils # Seg Neutrophils # Man Lymphocytes # (Manual) Monocytes # (Manual) Eosinophils # (Manual) Basophils # (Manual) PT INR Fibrinogen dRVVT Confirm Interp Factor V Activity POC ABG pH POC ABG pCO2 POC ABG pO2 ABG pO2 ABG HCO3 ABG Base Excess ABG Hemoglobin Oxyhemoglobin Sodium Potassium Chloride Carbon Dioxide BUN 92 H Creatinine 3.0 H Glucose 138 H POC Glucose 110 H Lactic Acid Calcium Phosphorus Magnesium Direct Bilirubin AST ALT Alkaline Phosphatase Lactate Dehydrogenase Troponin T C-Reactive Protein Total Protein Albumin Prealbumin Triglycerides Cholesterol LDL Cholesterol Direct HDL Cholesterol Urine pH Urine WBC (Auto) Urine Creatinine Urine Total Protein Fluid Total Protein Vancomycin Trough Rheumatoid Factor Complement C4 Miscellaneous Test Crossmatch 10/16/16 10/16/16 10/16/16 11:27 11:48 17:36 WBC RBC Hgb Hct MCV MCH MCHC RDW Plt Count Lymph % (Auto) [place] % (Auto) Lymph # [place] # Baso # Seg Neutrophils % Seg Neuts % (Manual) Lymphocytes % (Manual) Monocytes % (Manual) Eosinophils % (Manual) Basophils % (Manual) Nucleated RBC % Seg Neutrophils # Seg Neutrophils # Man Lymphocytes # (Manual) Monocytes # (Manual) Eosinophils # (Manual) Basophils # (Manual) PT INR Fibrinogen dRVVT Confirm Interp Factor V Activity POC ABG pH 7.582 H POC ABG pCO2 27.4 L POC ABG pO2 110 H ABG pO2 ABG HCO3 ABG Base Excess ABG Hemoglobin Oxyhemoglobin Sodium Potassium Chloride Carbon Dioxide BUN Creatinine Glucose POC Glucose 121 H 133 H Lactic Acid Calcium Phosphorus Magnesium Direct Bilirubin AST ALT Alkaline Phosphatase Lactate Dehydrogenase Troponin T C-Reactive Protein Total Protein Albumin Prealbumin Triglycerides Cholesterol LDL Cholesterol Direct HDL Cholesterol Urine pH Urine WBC (Auto) Urine Creatinine Urine Total Protein Fluid Total Protein Vancomycin Trough Rheumatoid Factor Complement C4 Miscellaneous Test Crossmatch 10/16/16 10/17/16 10/17/16 20:48 04:24 04:24 WBC 21.4 H RBC 2.72 L Hgb 8.0 L Hct 25.2 L MCV MCH MCHC RDW 18.0 H Plt Count Lymph % (Auto) [place] % (Auto) Lymph # [place] # Baso # Seg Neutrophils % Seg Neuts % (Manual) Lymphocytes % (Manual) Monocytes % (Manual) Eosinophils % (Manual) Basophils % (Manual) Nucleated RBC % Seg Neutrophils # Seg Neutrophils # Man Lymphocytes # (Manual) Monocytes # (Manual) Eosinophils # (Manual) Basophils # (Manual) PT INR Fibrinogen dRVVT Confirm Interp Factor V Activity POC ABG pH 7.561 H POC ABG pCO2 24.4 L POC ABG pO2 77 L ABG pO2 ABG HCO3 ABG Base Excess ABG Hemoglobin Oxyhemoglobin Sodium 148 H Potassium Chloride Carbon Dioxide BUN 104 H Creatinine 3.0 H Glucose 149 H POC Glucose Lactic Acid Calcium Phosphorus Magnesium Direct Bilirubin AST ALT Alkaline Phosphatase 138 H Lactate Dehydrogenase Troponin T C-Reactive Protein Total Protein 6.2 L Albumin 1.5 L Prealbumin Triglycerides Cholesterol LDL Cholesterol Direct HDL Cholesterol Urine pH Urine WBC (Auto) Urine Creatinine Urine Total Protein Fluid Total Protein Vancomycin Trough Rheumatoid Factor Complement C4 Miscellaneous Test Crossmatch 10/17/16 10/17/16 10/17/16 06:02 12:17 17:14 WBC RBC Hgb Hct MCV MCH MCHC RDW Plt Count Lymph % (Auto) [place] % (Auto) Lymph # [place] # Baso # Seg Neutrophils % Seg Neuts % (Manual) Lymphocytes % (Manual) Monocytes % (Manual) Eosinophils % (Manual) Basophils % (Manual) Nucleated RBC % Seg Neutrophils # Seg Neutrophils # Man Lymphocytes # (Manual) Monocytes # (Manual) Eosinophils # (Manual) Basophils # (Manual) PT INR Fibrinogen dRVVT Confirm Interp Factor V Activity POC ABG pH POC ABG pCO2 POC ABG pO2 ABG pO2 ABG HCO3 ABG Base Excess ABG Hemoglobin Oxyhemoglobin Sodium Potassium Chloride Carbon Dioxide BUN Creatinine Glucose POC Glucose 170 H 167 H 126 H Lactic Acid Calcium Phosphorus Magnesium Direct Bilirubin AST ALT Alkaline Phosphatase Lactate Dehydrogenase Troponin T C-Reactive Protein Total Protein Albumin Prealbumin Triglycerides Cholesterol LDL Cholesterol Direct HDL Cholesterol Urine pH Urine WBC (Auto) Urine Creatinine Urine Total Protein Fluid Total Protein Vancomycin Trough Rheumatoid Factor Complement C4 Miscellaneous Test Crossmatch 10/17/16 10/18/16 10/18/16 23:17 04:00 04:00 WBC 20.7 H RBC 2.47 L Hgb 7.4 L Hct 22.9 L MCV MCH MCHC RDW 17.5 H Plt Count Lymph % (Auto) [place] % (Auto) Lymph # [place] # Baso # Seg Neutrophils % Seg Neuts % (Manual) Lymphocytes % (Manual) Monocytes % (Manual) Eosinophils % (Manual) Basophils % (Manual) Nucleated RBC % Seg Neutrophils # Seg Neutrophils # Man Lymphocytes # (Manual) Monocytes # (Manual) Eosinophils # (Manual) Basophils # (Manual) PT INR Fibrinogen dRVVT Confirm Interp Factor V Activity POC ABG pH POC ABG pCO2 POC ABG pO2 ABG pO2 ABG HCO3 ABG Base Excess ABG Hemoglobin Oxyhemoglobin Sodium 149 H Potassium Chloride 107.9 H Carbon Dioxide 20 L BUN 117 H Creatinine 3.2 H Glucose 119 H POC Glucose 121 H Lactic Acid Calcium Phosphorus Magnesium Direct Bilirubin AST ALT Alkaline Phosphatase Lactate Dehydrogenase Troponin T C-Reactive Protein Total Protein Albumin Prealbumin Triglycerides Cholesterol LDL Cholesterol Direct HDL Cholesterol Urine pH Urine WBC (Auto) Urine Creatinine Urine Total Protein Fluid Total Protein Vancomycin Trough Rheumatoid Factor Complement C4 Miscellaneous Test Crossmatch 10/18/16 10/18/16 10/18/16 05:23 10:46 17:30 WBC RBC Hgb Hct MCV MCH MCHC RDW Plt Count Lymph % (Auto) [place] % (Auto) Lymph # [place] # Baso # Seg Neutrophils % Seg Neuts % (Manual) Lymphocytes % (Manual) Monocytes % (Manual) Eosinophils % (Manual) Basophils % (Manual) Nucleated RBC % Seg Neutrophils # Seg Neutrophils # Man Lymphocytes # (Manual) Monocytes # (Manual) Eosinophils # (Manual) Basophils # (Manual) PT INR Fibrinogen dRVVT Confirm Interp Factor V Activity POC ABG pH POC ABG pCO2 POC ABG pO2 ABG pO2 ABG HCO3 ABG Base Excess ABG Hemoglobin Oxyhemoglobin Sodium Potassium Chloride Carbon Dioxide BUN Creatinine Glucose POC Glucose 119 H 155 H 124 H Lactic Acid Calcium Phosphorus Magnesium Direct Bilirubin AST ALT Alkaline Phosphatase Lactate Dehydrogenase Troponin T C-Reactive Protein Total Protein Albumin Prealbumin Triglycerides Cholesterol LDL Cholesterol Direct HDL Cholesterol Urine pH Urine WBC (Auto) Urine Creatinine Urine Total Protein Fluid Total Protein Vancomycin Trough Rheumatoid Factor Complement C4 Miscellaneous Test Crossmatch 10/19/16 10/19/16 10/19/16 04:00 04:00 05:25 WBC 17.4 H RBC 2.54 L Hgb 7.7 L Hct 23.6 L MCV MCH MCHC RDW 17.3 H Plt Count Lymph % (Auto) [place] % (Auto) Lymph # [place] # Baso # Seg Neutrophils % Seg Neuts % (Manual) Lymphocytes % (Manual) Monocytes % (Manual) Eosinophils % (Manual) Basophils % (Manual) Nucleated RBC % Seg Neutrophils # Seg Neutrophils # Man Lymphocytes # (Manual) Monocytes # (Manual) Eosinophils # (Manual) Basophils # (Manual) PT INR Fibrinogen dRVVT Confirm Interp Factor V Activity POC ABG pH POC ABG pCO2 POC ABG pO2 ABG pO2 ABG HCO3 ABG Base Excess ABG Hemoglobin Oxyhemoglobin Sodium Potassium Chloride Carbon Dioxide BUN 72 H Creatinine 2.1 H Glucose 116 H POC Glucose 119 H Lactic Acid Calcium Phosphorus Magnesium Direct Bilirubin AST ALT Alkaline Phosphatase Lactate Dehydrogenase Troponin T C-Reactive Protein Total Protein Albumin Prealbumin Triglycerides Cholesterol LDL Cholesterol Direct HDL Cholesterol Urine pH Urine WBC (Auto) Urine Creatinine Urine Total Protein Fluid Total Protein Vancomycin Trough Rheumatoid Factor Complement C4 Miscellaneous Test Crossmatch 10/19/16 10/19/16 10/20/16 11:46 23:59 06:00 WBC RBC Hgb Hct MCV MCH MCHC RDW Plt Count Lymph % (Auto) [place] % (Auto) Lymph # [place] # Baso # Seg Neutrophils % Seg Neuts % (Manual) Lymphocytes % (Manual) Monocytes % (Manual) Eosinophils % (Manual) Basophils % (Manual) Nucleated RBC % Seg Neutrophils # Seg Neutrophils # Man Lymphocytes # (Manual) Monocytes # (Manual) Eosinophils # (Manual) Basophils # (Manual) PT INR Fibrinogen dRVVT Confirm Interp Factor V Activity POC ABG pH POC ABG pCO2 POC ABG pO2 ABG pO2 ABG HCO3 ABG Base Excess ABG Hemoglobin Oxyhemoglobin Sodium Potassium Chloride Carbon Dioxide 17 L BUN 94 H Creatinine 2.7 H Glucose POC Glucose 116 H 117 H Lactic Acid Calcium Phosphorus Magnesium Direct Bilirubin AST ALT Alkaline Phosphatase Lactate Dehydrogenase Troponin T C-Reactive Protein Total Protein Albumin Prealbumin Triglycerides Cholesterol LDL Cholesterol Direct HDL Cholesterol Urine pH Urine WBC (Auto) Urine Creatinine Urine Total Protein Fluid Total Protein Vancomycin Trough Rheumatoid Factor Complement C4 Miscellaneous Test Crossmatch 10/20/16 10/20/16 10/20/16 06:00 11:49 16:00 WBC 19.7 H RBC 2.51 L Hgb 7.7 L Hct 23.5 L MCV MCH MCHC RDW 17.5 H Plt Count Lymph % (Auto) [place] % (Auto) Lymph # [place] # Baso # Seg Neutrophils % Seg Neuts % (Manual) Lymphocytes % (Manual) Monocytes % (Manual) Eosinophils % (Manual) Basophils % (Manual) Nucleated RBC % Seg Neutrophils # Seg Neutrophils # Man Lymphocytes # (Manual) Monocytes # (Manual) Eosinophils # (Manual) Basophils # (Manual) PT INR Fibrinogen dRVVT Confirm Interp Factor V Activity POC ABG pH POC ABG pCO2 POC ABG pO2 ABG pO2 ABG HCO3 ABG Base Excess ABG Hemoglobin Oxyhemoglobin Sodium Potassium Chloride Carbon Dioxide BUN Creatinine Glucose POC Glucose 117 H Lactic Acid Calcium Phosphorus Magnesium Direct Bilirubin AST ALT Alkaline Phosphatase Lactate Dehydrogenase Troponin T C-Reactive Protein Total Protein Albumin Prealbumin Triglycerides Cholesterol LDL Cholesterol Direct HDL Cholesterol Urine pH Urine WBC (Auto) Urine Creatinine Urine Total Protein Fluid Total Protein Vancomycin Trough Rheumatoid Factor Complement C4 Miscellaneous Test Flexitest 1 H Crossmatch 10/20/16 10/20/16 10/21/16 18:36 23:39 04:00 WBC RBC Hgb Hct MCV MCH MCHC RDW Plt Count Lymph % (Auto) [place] % (Auto) Lymph # [place] # Baso # Seg Neutrophils % Seg Neuts % (Manual) Lymphocytes % (Manual) Monocytes % (Manual) Eosinophils % (Manual) Basophils % (Manual) Nucleated RBC % Seg Neutrophils # Seg Neutrophils # Man Lymphocytes # (Manual) Monocytes # (Manual) Eosinophils # (Manual) Basophils # (Manual) PT INR Fibrinogen dRVVT Confirm Interp Factor V Activity POC ABG pH POC ABG pCO2 POC ABG pO2 ABG pO2 ABG HCO3 ABG Base Excess ABG Hemoglobin Oxyhemoglobin Sodium Potassium 5.4 H D Chloride Carbon Dioxide 15 L BUN 110 H Creatinine 3.0 H Glucose POC Glucose 127 H 114 H Lactic Acid Calcium Phosphorus Magnesium Direct Bilirubin AST ALT Alkaline Phosphatase Lactate Dehydrogenase Troponin T C-Reactive Protein Total Protein Albumin Prealbumin Triglycerides Cholesterol LDL Cholesterol Direct HDL Cholesterol Urine pH Urine WBC (Auto) Urine Creatinine Urine Total Protein Fluid Total Protein Vancomycin Trough Rheumatoid Factor Complement C4 Miscellaneous Test Crossmatch 10/21/16 10/21/16 10/22/16 05:54 23:46 05:18 WBC RBC Hgb Hct MCV MCH MCHC RDW Plt Count Lymph % (Auto) [place] % (Auto) Lymph # [place] # Baso # Seg Neutrophils % Seg Neuts % (Manual) Lymphocytes % (Manual) Monocytes % (Manual) Eosinophils % (Manual) Basophils % (Manual) Nucleated RBC % Seg Neutrophils # Seg Neutrophils # Man Lymphocytes # (Manual) Monocytes # (Manual) Eosinophils # (Manual) Basophils # (Manual) PT INR Fibrinogen dRVVT Confirm Interp Factor V Activity POC ABG pH POC ABG pCO2 POC ABG pO2 ABG pO2 ABG HCO3 ABG Base Excess ABG Hemoglobin Oxyhemoglobin Sodium Potassium Chloride Carbon Dioxide BUN Creatinine Glucose POC Glucose 119 H 108 H 109 H Lactic Acid Calcium Phosphorus Magnesium Direct Bilirubin AST ALT Alkaline Phosphatase Lactate Dehydrogenase Troponin T C-Reactive Protein Total Protein Albumin Prealbumin Triglycerides Cholesterol LDL Cholesterol Direct HDL Cholesterol Urine pH Urine WBC (Auto) Urine Creatinine Urine Total Protein Fluid Total Protein Vancomycin Trough Rheumatoid Factor Complement C4 Miscellaneous Test Crossmatch 10/22/16 10/22/16 10/22/16 06:40 06:40 06:40 WBC 14.0 H RBC 2.03 L Hgb 7.0 L Hct 20.5 L MCV 98 H MCH 34 H MCHC 35 H RDW 17.8 H Plt Count Lymph % (Auto) [place] % (Auto) 9.9 H Lymph # [place] # 1.4 H Baso # 0.2 H Seg Neutrophils % 72.0 H Seg Neuts % (Manual) Lymphocytes % (Manual) Monocytes % (Manual) Eosinophils % (Manual) Basophils % (Manual) Nucleated RBC % Seg Neutrophils # 10.0 H Seg Neutrophils # Man Lymphocytes # (Manual) Monocytes # (Manual) Eosinophils # (Manual) Basophils # (Manual) PT INR Fibrinogen dRVVT Confirm Interp Factor V Activity POC ABG pH POC ABG pCO2 POC ABG pO2 ABG pO2 ABG HCO3 ABG Base Excess ABG Hemoglobin Oxyhemoglobin Sodium 130 L D Potassium Chloride 92.4 L Carbon Dioxide 20 L BUN 50 H Creatinine 1.6 H Glucose 589 H* POC Glucose Lactic Acid Calcium 7.8 L D Phosphorus Magnesium 1.60 L Direct Bilirubin AST ALT Alkaline Phosphatase Lactate Dehydrogenase Troponin T C-Reactive Protein Total Protein Albumin Prealbumin Triglycerides Cholesterol LDL Cholesterol Direct HDL Cholesterol Urine pH Urine WBC (Auto) Urine Creatinine Urine Total Protein Fluid Total Protein Vancomycin Trough Rheumatoid Factor Complement C4 Miscellaneous Test Crossmatch 10/22/16 10/22/16 10/22/16 11:39 16:44 23:36 WBC RBC Hgb Hct MCV MCH MCHC RDW Plt Count Lymph % (Auto) [place] % (Auto) Lymph # [place] # Baso # Seg Neutrophils % Seg Neuts % (Manual) Lymphocytes % (Manual) Monocytes % (Manual) Eosinophils % (Manual) Basophils % (Manual) Nucleated RBC % Seg Neutrophils # Seg Neutrophils # Man Lymphocytes # (Manual) Monocytes # (Manual) Eosinophils # (Manual) Basophils # (Manual) PT INR Fibrinogen dRVVT Confirm Interp Factor V Activity POC ABG pH POC ABG pCO2 POC ABG pO2 ABG pO2 ABG HCO3 ABG Base Excess ABG Hemoglobin Oxyhemoglobin Sodium Potassium Chloride Carbon Dioxide BUN Creatinine Glucose POC Glucose 142 H 163 H 123 H Lactic Acid Calcium Phosphorus Magnesium Direct Bilirubin AST ALT Alkaline Phosphatase Lactate Dehydrogenase Troponin T C-Reactive Protein Total Protein Albumin Prealbumin Triglycerides Cholesterol LDL Cholesterol Direct HDL Cholesterol Urine pH Urine WBC (Auto) Urine Creatinine Urine Total Protein Fluid Total Protein Vancomycin Trough Rheumatoid Factor Complement C4 Miscellaneous Test Crossmatch 10/23/16 10/23/16 10/23/16 04:58 06:00 12:12 WBC RBC Hgb Hct MCV MCH MCHC RDW Plt Count Lymph % (Auto) [place] % (Auto) Lymph # [place] # Baso # Seg Neutrophils % Seg Neuts % (Manual) Lymphocytes % (Manual) Monocytes % (Manual) Eosinophils % (Manual) Basophils % (Manual) Nucleated RBC % Seg Neutrophils # Seg Neutrophils # Man Lymphocytes # (Manual) Monocytes # (Manual) Eosinophils # (Manual) Basophils # (Manual) PT INR Fibrinogen dRVVT Confirm Interp Factor V Activity POC ABG pH POC ABG pCO2 POC ABG pO2 ABG pO2 ABG HCO3 ABG Base Excess ABG Hemoglobin Oxyhemoglobin Sodium 133 L Potassium 3.5 L Chloride 96.1 L Carbon Dioxide 18 L BUN 76 H Creatinine 2.1 H Glucose POC Glucose 133 H 138 H Lactic Acid Calcium 8.3 L Phosphorus Magnesium Direct Bilirubin AST ALT Alkaline Phosphatase Lactate Dehydrogenase Troponin T C-Reactive Protein Total Protein Albumin Prealbumin Triglycerides Cholesterol LDL Cholesterol Direct HDL Cholesterol Urine pH Urine WBC (Auto) Urine Creatinine Urine Total Protein Fluid Total Protein Vancomycin Trough Rheumatoid Factor Complement C4 Miscellaneous Test Crossmatch 10/23/16 10/23/16 10/24/16 16:53 23:37 04:00 WBC RBC Hgb Hct MCV MCH MCHC RDW Plt Count Lymph % (Auto) [place] % (Auto) Lymph # [place] # Baso # Seg Neutrophils % Seg Neuts % (Manual) Lymphocytes % (Manual) Monocytes % (Manual) Eosinophils % (Manual) Basophils % (Manual) Nucleated RBC % Seg Neutrophils # Seg Neutrophils # Man Lymphocytes # (Manual) Monocytes # (Manual) Eosinophils # (Manual) Basophils # (Manual) PT INR Fibrinogen dRVVT Confirm Interp Factor V Activity POC ABG pH POC ABG pCO2 POC ABG pO2 ABG pO2 ABG HCO3 ABG Base Excess ABG Hemoglobin Oxyhemoglobin Sodium 131 L Potassium Chloride 94.5 L Carbon Dioxide 19 L BUN 97 H Creatinine 2.6 H Glucose 110 H POC Glucose 125 H 123 H Lactic Acid Calcium 8.3 L Phosphorus Magnesium Direct Bilirubin AST ALT Alkaline Phosphatase Lactate Dehydrogenase Troponin T C-Reactive Protein Total Protein Albumin Prealbumin Triglycerides Cholesterol LDL Cholesterol Direct HDL Cholesterol Urine pH Urine WBC (Auto) Urine Creatinine Urine Total Protein Fluid Total Protein Vancomycin Trough Rheumatoid Factor Complement C4 Miscellaneous Test Crossmatch 10/24/16 10/24/16 10/24/16 07:49 11:39 17:52 WBC RBC Hgb 6.0 L Hct 19.7 L* MCV MCH MCHC RDW Plt Count Lymph % (Auto) [place] % (Auto) Lymph # [place] # Baso # Seg Neutrophils % Seg Neuts % (Manual) Lymphocytes % (Manual) Monocytes % (Manual) Eosinophils % (Manual) Basophils % (Manual) Nucleated RBC % Seg Neutrophils # Seg Neutrophils # Man Lymphocytes # (Manual) Monocytes # (Manual) Eosinophils # (Manual) Basophils # (Manual) PT INR Fibrinogen dRVVT Confirm Interp Factor V Activity POC ABG pH POC ABG pCO2 POC ABG pO2 ABG pO2 ABG HCO3 ABG Base Excess ABG Hemoglobin Oxyhemoglobin Sodium Potassium Chloride Carbon Dioxide BUN Creatinine Glucose POC Glucose 106 H 158 H Lactic Acid Calcium Phosphorus Magnesium Direct Bilirubin AST ALT Alkaline Phosphatase Lactate Dehydrogenase Troponin T C-Reactive Protein Total Protein Albumin Prealbumin Triglycerides Cholesterol LDL Cholesterol Direct HDL Cholesterol Urine pH Urine WBC (Auto) Urine Creatinine Urine Total Protein Fluid Total Protein Vancomycin Trough Rheumatoid Factor Complement C4 Miscellaneous Test Crossmatch 10/24/16 10/24/16 10/24/16 20:00 22:27 Unknown WBC RBC Hgb 9.4 L D Hct 27.5 L D MCV MCH MCHC RDW Plt Count Lymph % (Auto) [place] % (Auto) Lymph # [place] # Baso # Seg Neutrophils % Seg Neuts % (Manual) Lymphocytes % (Manual) Monocytes % (Manual) Eosinophils % (Manual) Basophils % (Manual) Nucleated RBC % Seg Neutrophils # Seg Neutrophils # Man Lymphocytes # (Manual) Monocytes # (Manual) Eosinophils # (Manual) Basophils # (Manual) PT INR Fibrinogen dRVVT Confirm Interp Factor V Activity POC ABG pH POC ABG pCO2 POC ABG pO2 ABG pO2 ABG HCO3 ABG Base Excess ABG Hemoglobin Oxyhemoglobin Sodium Potassium Chloride Carbon Dioxide BUN Creatinine Glucose POC Glucose 125 H Lactic Acid Calcium Phosphorus Magnesium Direct Bilirubin AST ALT Alkaline Phosphatase Lactate Dehydrogenase Troponin T C-Reactive Protein Total Protein Albumin Prealbumin Triglycerides Cholesterol LDL Cholesterol Direct HDL Cholesterol Urine pH Urine WBC (Auto) Urine Creatinine Urine Total Protein Fluid Total Protein Vancomycin Trough Rheumatoid Factor Complement C4 Miscellaneous Test Crossmatch See Detail 10/25/16 10/25/16 10/25/16 04:00 04:00 04:00 WBC 14.2 H RBC 2.98 L Hgb 9.0 L Hct 26.2 L MCV MCH MCHC RDW 16.6 H Plt Count Lymph % (Auto) [place] % (Auto) 10.7 H Lymph # [place] # 1.5 H Baso # Seg Neutrophils % 73.6 H Seg Neuts % (Manual) Lymphocytes % (Manual) Monocytes % (Manual) Eosinophils % (Manual) Basophils % (Manual) Nucleated RBC % Seg Neutrophils # 10.5 H Seg Neutrophils # Man Lymphocytes # (Manual) Monocytes # (Manual) Eosinophils # (Manual) Basophils # (Manual) PT INR Fibrinogen dRVVT Confirm Interp Factor V Activity POC ABG pH POC ABG pCO2 POC ABG pO2 ABG pO2 ABG HCO3 ABG Base Excess ABG Hemoglobin Oxyhemoglobin Sodium 132 L Potassium Chloride 94.7 L Carbon Dioxide BUN 51 H Creatinine 1.6 H Glucose 130 H POC Glucose Lactic Acid Calcium 8.3 L Phosphorus 1.60 L D Magnesium Direct Bilirubin AST ALT Alkaline Phosphatase Lactate Dehydrogenase Troponin T C-Reactive Protein Total Protein Albumin Prealbumin Triglycerides Cholesterol LDL Cholesterol Direct HDL Cholesterol Urine pH Urine WBC (Auto) Urine Creatinine Urine Total Protein Fluid Total Protein Vancomycin Trough Rheumatoid Factor Complement C4 Miscellaneous Test Crossmatch 10/25/16 10/25/16 10/25/16 04:32 11:48 17:22 WBC RBC Hgb Hct MCV MCH MCHC RDW Plt Count Lymph % (Auto) [place] % (Auto) Lymph # [place] # Baso # Seg Neutrophils % Seg Neuts % (Manual) Lymphocytes % (Manual) Monocytes % (Manual) Eosinophils % (Manual) Basophils % (Manual) Nucleated RBC % Seg Neutrophils # Seg Neutrophils # Man Lymphocytes # (Manual) Monocytes # (Manual) Eosinophils # (Manual) Basophils # (Manual) PT INR Fibrinogen dRVVT Confirm Interp Factor V Activity POC ABG pH POC ABG pCO2 POC ABG pO2 ABG pO2 ABG HCO3 ABG Base Excess ABG Hemoglobin Oxyhemoglobin Sodium Potassium Chloride Carbon Dioxide BUN Creatinine Glucose POC Glucose 124 H 171 H 120 H Lactic Acid Calcium Phosphorus Magnesium Direct Bilirubin AST ALT Alkaline Phosphatase Lactate Dehydrogenase Troponin T C-Reactive Protein Total Protein Albumin Prealbumin Triglycerides Cholesterol LDL Cholesterol Direct HDL Cholesterol Urine pH Urine WBC (Auto) Urine Creatinine Urine Total Protein Fluid Total Protein Vancomycin Trough Rheumatoid Factor Complement C4 Miscellaneous Test Crossmatch 10/26/16 10/26/16 10/26/16 04:54 07:06 07:06 WBC 16.9 H RBC 3.06 L Hgb 9.1 L Hct 26.9 L MCV MCH MCHC RDW 16.9 H Plt Count Lymph % (Auto) [place] % (Auto) Lymph # [place] # Baso # Seg Neutrophils % Seg Neuts % (Manual) 71.0 H Lymphocytes % (Manual) 5.0 L Monocytes % (Manual) 12.0 H Eosinophils % (Manual) Basophils % (Manual) Nucleated RBC % Seg Neutrophils # Seg Neutrophils # Man 12.0 H Lymphocytes # (Manual) 0.8 L Monocytes # (Manual) 2.0 H Eosinophils # (Manual) Basophils # (Manual) PT INR Fibrinogen dRVVT Confirm Interp Factor V Activity POC ABG pH POC ABG pCO2 POC ABG pO2 ABG pO2 ABG HCO3 ABG Base Excess ABG Hemoglobin Oxyhemoglobin Sodium 135 L Potassium Chloride 97.1 L Carbon Dioxide BUN 73 H Creatinine 2.2 H Glucose 117 H POC Glucose 123 H Lactic Acid Calcium Phosphorus 1.70 L Magnesium Direct Bilirubin AST ALT Alkaline Phosphatase Lactate Dehydrogenase Troponin T C-Reactive Protein Total Protein Albumin Prealbumin Triglycerides Cholesterol LDL Cholesterol Direct HDL Cholesterol Urine pH Urine WBC (Auto) Urine Creatinine Urine Total Protein Fluid Total Protein Vancomycin Trough Rheumatoid Factor Complement C4 Miscellaneous Test Crossmatch 10/26/16 10/26/16 10/26/16 12:12 17:29 23:42 WBC RBC Hgb Hct MCV MCH MCHC RDW Plt Count Lymph % (Auto) [place] % (Auto) Lymph # [place] # Baso # Seg Neutrophils % Seg Neuts % (Manual) Lymphocytes % (Manual) Monocytes % (Manual) Eosinophils % (Manual) Basophils % (Manual) Nucleated RBC % Seg Neutrophils # Seg Neutrophils # Man Lymphocytes # (Manual) Monocytes # (Manual) Eosinophils # (Manual) Basophils # (Manual) PT INR Fibrinogen dRVVT Confirm Interp Factor V Activity POC ABG pH POC ABG pCO2 POC ABG pO2 ABG pO2 ABG HCO3 ABG Base Excess ABG Hemoglobin Oxyhemoglobin Sodium Potassium Chloride Carbon Dioxide BUN Creatinine Glucose POC Glucose 126 H 161 H 118 H Lactic Acid Calcium Phosphorus Magnesium Direct Bilirubin AST ALT Alkaline Phosphatase Lactate Dehydrogenase Troponin T C-Reactive Protein Total Protein Albumin Prealbumin Triglycerides Cholesterol LDL Cholesterol Direct HDL Cholesterol Urine pH Urine WBC (Auto) Urine Creatinine Urine Total Protein Fluid Total Protein Vancomycin Trough Rheumatoid Factor Complement C4 Miscellaneous Test Crossmatch 10/27/16 10/27/16 10/27/16 05:03 06:30 06:30 WBC 13.9 H RBC 3.09 L Hgb 9.2 L Hct 27.5 L MCV MCH MCHC RDW 17.0 H Plt Count Lymph % (Auto) [place] % (Auto) Lymph # [place] # Baso # Seg Neutrophils % Seg Neuts % (Manual) 78.0 H Lymphocytes % (Manual) Monocytes % (Manual) Eosinophils % (Manual) Basophils % (Manual) Nucleated RBC % 2.0 H Seg Neutrophils # Seg Neutrophils # Man 10.8 H Lymphocytes # (Manual) Monocytes # (Manual) 1.0 H Eosinophils # (Manual) Basophils # (Manual) PT INR Fibrinogen dRVVT Confirm Interp Factor V Activity POC ABG pH POC ABG pCO2 POC ABG pO2 ABG pO2 ABG HCO3 ABG Base Excess ABG Hemoglobin Oxyhemoglobin Sodium Potassium Chloride Carbon Dioxide BUN 40 H Creatinine 1.5 H Glucose 135 H POC Glucose 107 H Lactic Acid Calcium 8.3 L Phosphorus 1.30 L D Magnesium Direct Bilirubin AST ALT Alkaline Phosphatase Lactate Dehydrogenase Troponin T C-Reactive Protein Total Protein Albumin Prealbumin Triglycerides Cholesterol LDL Cholesterol Direct HDL Cholesterol Urine pH Urine WBC (Auto) Urine Creatinine Urine Total Protein Fluid Total Protein Vancomycin Trough Rheumatoid Factor Complement C4 Miscellaneous Test Crossmatch 10/27/16 10/27/16 10/27/16 13:27 18:07 23:40 WBC RBC Hgb Hct MCV MCH MCHC RDW Plt Count Lymph % (Auto) [place] % (Auto) Lymph # [place] # Baso # Seg Neutrophils % Seg Neuts % (Manual) Lymphocytes % (Manual) Monocytes % (Manual) Eosinophils % (Manual) Basophils % (Manual) Nucleated RBC % Seg Neutrophils # Seg Neutrophils # Man Lymphocytes # (Manual) Monocytes # (Manual) Eosinophils # (Manual) Basophils # (Manual) PT INR Fibrinogen dRVVT Confirm Interp Factor V Activity POC ABG pH POC ABG pCO2 POC ABG pO2 ABG pO2 ABG HCO3 ABG Base Excess ABG Hemoglobin Oxyhemoglobin Sodium Potassium Chloride Carbon Dioxide BUN Creatinine Glucose POC Glucose 117 H 121 H 118 H Lactic Acid Calcium Phosphorus Magnesium Direct Bilirubin AST ALT Alkaline Phosphatase Lactate Dehydrogenase Troponin T C-Reactive Protein Total Protein Albumin Prealbumin Triglycerides Cholesterol LDL Cholesterol Direct HDL Cholesterol Urine pH Urine WBC (Auto) Urine Creatinine Urine Total Protein Fluid Total Protein Vancomycin Trough Rheumatoid Factor Complement C4 Miscellaneous Test Crossmatch 10/28/16 10/28/16 10/28/16 05:48 06:45 06:45 WBC 14.7 H RBC 3.05 L Hgb 9.0 L Hct 26.9 L MCV MCH MCHC RDW 16.8 H Plt Count Lymph % (Auto) 8.2 L [place] % (Auto) 8.4 H Lymph # [place] # 1.2 H Baso # Seg Neutrophils % 81.9 H Seg Neuts % (Manual) Lymphocytes % (Manual) Monocytes % (Manual) Eosinophils % (Manual) Basophils % (Manual) Nucleated RBC % Seg Neutrophils # 12.1 H Seg Neutrophils # Man Lymphocytes # (Manual) Monocytes # (Manual) Eosinophils # (Manual) Basophils # (Manual) PT INR Fibrinogen dRVVT Confirm Interp Factor V Activity POC ABG pH POC ABG pCO2 POC ABG pO2 ABG pO2 ABG HCO3 ABG Base Excess ABG Hemoglobin Oxyhemoglobin Sodium Potassium Chloride Carbon Dioxide BUN 60 H Creatinine 1.9 H Glucose 120 H POC Glucose 114 H Lactic Acid Calcium Phosphorus Magnesium Direct Bilirubin AST ALT Alkaline Phosphatase Lactate Dehydrogenase Troponin T C-Reactive Protein Total Protein Albumin Prealbumin Triglycerides Cholesterol LDL Cholesterol Direct HDL Cholesterol Urine pH Urine WBC (Auto) Urine Creatinine Urine Total Protein Fluid Total Protein Vancomycin Trough Rheumatoid Factor Complement C4 Miscellaneous Test Crossmatch 10/28/16 10/28/16 10/29/16 17:08 23:50 05:10 WBC RBC Hgb Hct MCV MCH MCHC RDW Plt Count Lymph % (Auto) [place] % (Auto) Lymph # [place] # Baso # Seg Neutrophils % Seg Neuts % (Manual) Lymphocytes % (Manual) Monocytes % (Manual) Eosinophils % (Manual) Basophils % (Manual) Nucleated RBC % Seg Neutrophils # Seg Neutrophils # Man Lymphocytes # (Manual) Monocytes # (Manual) Eosinophils # (Manual) Basophils # (Manual) PT INR Fibrinogen dRVVT Confirm Interp Factor V Activity POC ABG pH POC ABG pCO2 POC ABG pO2 ABG pO2 ABG HCO3 ABG Base Excess ABG Hemoglobin Oxyhemoglobin Sodium Potassium Chloride Carbon Dioxide BUN Creatinine Glucose POC Glucose 109 H 110 H 124 H Lactic Acid Calcium Phosphorus Magnesium Direct Bilirubin AST ALT Alkaline Phosphatase Lactate Dehydrogenase Troponin T C-Reactive Protein Total Protein Albumin Prealbumin Triglycerides Cholesterol LDL Cholesterol Direct HDL Cholesterol Urine pH Urine WBC (Auto) Urine Creatinine Urine Total Protein Fluid Total Protein Vancomycin Trough Rheumatoid Factor Complement C4 Miscellaneous Test Crossmatch 10/29/16 10/29/16 10/29/16 07:45 07:45 12:19 WBC 14.7 H RBC 3.15 L Hgb 9.3 L Hct 28.9 L MCV MCH MCHC RDW 17.0 H Plt Count Lymph % (Auto) 11.9 L [place] % (Auto) 8.6 H Lymph # [place] # 1.3 H Baso # Seg Neutrophils % 78.1 H Seg Neuts % (Manual) Lymphocytes % (Manual) Monocytes % (Manual) Eosinophils % (Manual) Basophils % (Manual) Nucleated RBC % Seg Neutrophils # 11.4 H Seg Neutrophils # Man Lymphocytes # (Manual) Monocytes # (Manual) Eosinophils # (Manual) Basophils # (Manual) PT INR Fibrinogen dRVVT Confirm Interp Factor V Activity POC ABG pH POC ABG pCO2 POC ABG pO2 ABG pO2 ABG HCO3 ABG Base Excess ABG Hemoglobin Oxyhemoglobin Sodium Potassium 5.1 H Chloride Carbon Dioxide 19 L BUN 78 H Creatinine 2.2 H Glucose 116 H POC Glucose 118 H Lactic Acid Calcium Phosphorus Magnesium Direct Bilirubin AST ALT Alkaline Phosphatase Lactate Dehydrogenase Troponin T C-Reactive Protein Total Protein Albumin Prealbumin Triglycerides Cholesterol LDL Cholesterol Direct HDL Cholesterol Urine pH Urine WBC (Auto) Urine Creatinine Urine Total Protein Fluid Total Protein Vancomycin Trough Rheumatoid Factor Complement C4 Miscellaneous Test Crossmatch 10/29/16 10/30/16 10/30/16 17:49 01:52 03:28 WBC RBC Hgb Hct MCV MCH MCHC RDW Plt Count Lymph % (Auto) [place] % (Auto) Lymph # [place] # Baso # Seg Neutrophils % Seg Neuts % (Manual) Lymphocytes % (Manual) Monocytes % (Manual) Eosinophils % (Manual) Basophils % (Manual) Nucleated RBC % Seg Neutrophils # Seg Neutrophils # Man Lymphocytes # (Manual) Monocytes # (Manual) Eosinophils # (Manual) Basophils # (Manual) PT INR Fibrinogen dRVVT Confirm Interp Factor V Activity POC ABG pH POC ABG pCO2 POC ABG pO2 ABG pO2 ABG HCO3 ABG Base Excess ABG Hemoglobin Oxyhemoglobin Sodium Potassium 5.4 H Chloride 97.5 L Carbon Dioxide 19 L BUN 90 H Creatinine 2.5 H Glucose POC Glucose 120 H 129 H Lactic Acid Calcium Phosphorus 5.20 H Magnesium Direct Bilirubin AST ALT Alkaline Phosphatase Lactate Dehydrogenase Troponin T C-Reactive Protein Total Protein Albumin Prealbumin Triglycerides Cholesterol LDL Cholesterol Direct HDL Cholesterol Urine pH Urine WBC (Auto) Urine Creatinine Urine Total Protein Fluid Total Protein Vancomycin Trough Rheumatoid Factor Complement C4 Miscellaneous Test Crossmatch 10/30/16 10/30/16 10/30/16 03:28 08:19 08:19 WBC 11.6 H 15.9 H RBC 2.75 L 2.82 L Hgb 7.9 L 8.3 L Hct 24.2 L 25.2 L MCV MCH MCHC RDW 16.7 H 17.2 H Plt Count Lymph % (Auto) [place] % (Auto) 9.8 H Lymph # [place] # 1.1 H Baso # Seg Neutrophils % 74.2 H Seg Neuts % (Manual) Lymphocytes % (Manual) Monocytes % (Manual) Eosinophils % (Manual) Basophils % (Manual) Nucleated RBC % Seg Neutrophils # 8.6 H Seg Neutrophils # Man Lymphocytes # (Manual) Monocytes # (Manual) Eosinophils # (Manual) Basophils # (Manual) PT INR Fibrinogen dRVVT Confirm Interp Factor V Activity POC ABG pH POC ABG pCO2 POC ABG pO2 ABG pO2 ABG HCO3 ABG Base Excess ABG Hemoglobin Oxyhemoglobin Sodium Potassium 5.3 H Chloride 97.4 L Carbon Dioxide 19 L BUN 93 H Creatinine 2.6 H Glucose POC Glucose Lactic Acid Calcium Phosphorus Magnesium Direct Bilirubin AST ALT Alkaline Phosphatase Lactate Dehydrogenase Troponin T C-Reactive Protein Total Protein Albumin Prealbumin Triglycerides Cholesterol LDL Cholesterol Direct HDL Cholesterol Urine pH Urine WBC (Auto) Urine Creatinine Urine Total Protein Fluid Total Protein Vancomycin Trough Rheumatoid Factor Complement C4 Miscellaneous Test Crossmatch 10/30/16 10/30/16 10/31/16 17:11 23:56 00:40 WBC RBC Hgb Hct MCV MCH MCHC RDW Plt Count Lymph % (Auto) [place] % (Auto) Lymph # [place] # Baso # Seg Neutrophils % Seg Neuts % (Manual) Lymphocytes % (Manual) Monocytes % (Manual) Eosinophils % (Manual) Basophils % (Manual) Nucleated RBC % Seg Neutrophils # Seg Neutrophils # Man Lymphocytes # (Manual) Monocytes # (Manual) Eosinophils # (Manual) Basophils # (Manual) PT INR Fibrinogen dRVVT Confirm Interp Factor V Activity POC ABG pH POC ABG pCO2 POC ABG pO2 ABG pO2 ABG HCO3 ABG Base Excess ABG Hemoglobin Oxyhemoglobin Sodium Potassium Chloride Carbon Dioxide BUN Creatinine Glucose POC Glucose 106 H 117 H 120 H Lactic Acid Calcium Phosphorus Magnesium Direct Bilirubin AST ALT Alkaline Phosphatase Lactate Dehydrogenase Troponin T C-Reactive Protein Total Protein Albumin Prealbumin Triglycerides Cholesterol LDL Cholesterol Direct HDL Cholesterol Urine pH Urine WBC (Auto) Urine Creatinine Urine Total Protein Fluid Total Protein Vancomycin Trough Rheumatoid Factor Complement C4 Miscellaneous Test Crossmatch 10/31/16 10/31/16 10/31/16 05:43 07:15 07:15 WBC 12.1 H RBC 2.63 L Hgb 7.7 L Hct 23.3 L MCV MCH MCHC RDW 16.7 H Plt Count Lymph % (Auto) 11.7 L [place] % (Auto) 7.7 H Lymph # [place] # 0.9 H Baso # Seg Neutrophils % 78.0 H Seg Neuts % (Manual) Lymphocytes % (Manual) Monocytes % (Manual) Eosinophils % (Manual) Basophils % (Manual) Nucleated RBC % Seg Neutrophils # 9.4 H Seg Neutrophils # Man Lymphocytes # (Manual) Monocytes # (Manual) Eosinophils # (Manual) Basophils # (Manual) PT INR Fibrinogen dRVVT Confirm Interp Factor V Activity POC ABG pH POC ABG pCO2 POC ABG pO2 ABG pO2 ABG HCO3 ABG Base Excess ABG Hemoglobin Oxyhemoglobin Sodium Potassium Chloride 96.4 L Carbon Dioxide 21 L BUN 99 H Creatinine 2.6 H Glucose 144 H POC Glucose 125 H Lactic Acid Calcium Phosphorus 4.80 H Magnesium Direct Bilirubin AST ALT Alkaline Phosphatase Lactate Dehydrogenase Troponin T C-Reactive Protein Total Protein Albumin Prealbumin Triglycerides Cholesterol LDL Cholesterol Direct HDL Cholesterol Urine pH Urine WBC (Auto) Urine Creatinine Urine Total Protein Fluid Total Protein Vancomycin Trough Rheumatoid Factor Complement C4 Miscellaneous Test Crossmatch 10/31/16 10/31/16 11/01/16 11:46 18:34 00:20 WBC RBC Hgb Hct MCV MCH MCHC RDW Plt Count Lymph % (Auto) [place] % (Auto) Lymph # [place] # Baso # Seg Neutrophils % Seg Neuts % (Manual) Lymphocytes % (Manual) Monocytes % (Manual) Eosinophils % (Manual) Basophils % (Manual) Nucleated RBC % Seg Neutrophils # Seg Neutrophils # Man Lymphocytes # (Manual) Monocytes # (Manual) Eosinophils # (Manual) Basophils # (Manual) PT INR Fibrinogen dRVVT Confirm Interp Factor V Activity POC ABG pH POC ABG pCO2 POC ABG pO2 ABG pO2 ABG HCO3 ABG Base Excess ABG Hemoglobin Oxyhemoglobin Sodium Potassium Chloride Carbon Dioxide BUN Creatinine Glucose POC Glucose 159 H 140 H 132 H Lactic Acid Calcium Phosphorus Magnesium Direct Bilirubin AST ALT Alkaline Phosphatase Lactate Dehydrogenase Troponin T C-Reactive Protein Total Protein Albumin Prealbumin Triglycerides Cholesterol LDL Cholesterol Direct HDL Cholesterol Urine pH Urine WBC (Auto) Urine Creatinine Urine Total Protein Fluid Total Protein Vancomycin Trough Rheumatoid Factor Complement C4 Miscellaneous Test Crossmatch 11/01/16 11/01/16 11/01/16 04:55 04:55 06:11 WBC 11.2 H RBC 2.68 L Hgb 7.5 L Hct 23.7 L MCV MCH MCHC RDW 16.1 H Plt Count Lymph % (Auto) [place] % (Auto) 9.8 H Lymph # [place] # 1.1 H Baso # Seg Neutrophils % 70.8 H Seg Neuts % (Manual) Lymphocytes % (Manual) Monocytes % (Manual) Eosinophils % (Manual) Basophils % (Manual) Nucleated RBC % Seg Neutrophils # 7.9 H Seg Neutrophils # Man Lymphocytes # (Manual) Monocytes # (Manual) Eosinophils # (Manual) Basophils # (Manual) PT INR Fibrinogen dRVVT Confirm Interp Factor V Activity POC ABG pH POC ABG pCO2 POC ABG pO2 ABG pO2 ABG HCO3 ABG Base Excess ABG Hemoglobin Oxyhemoglobin Sodium Potassium 3.3 L D Chloride Carbon Dioxide BUN 61 H Creatinine 1.9 H Glucose 114 H POC Glucose 115 H Lactic Acid Calcium Phosphorus 1.80 L D Magnesium Direct Bilirubin AST ALT Alkaline Phosphatase Lactate Dehydrogenase Troponin T C-Reactive Protein Total Protein Albumin Prealbumin Triglycerides Cholesterol LDL Cholesterol Direct HDL Cholesterol Urine pH Urine WBC (Auto) Urine Creatinine Urine Total Protein Fluid Total Protein Vancomycin Trough Rheumatoid Factor Complement C4 Miscellaneous Test Crossmatch 11/01/16 11/01/16 11/01/16 12:29 18:23 23:58 WBC RBC Hgb Hct MCV MCH MCHC RDW Plt Count Lymph % (Auto) [place] % (Auto) Lymph # [place] # Baso # Seg Neutrophils % Seg Neuts % (Manual) Lymphocytes % (Manual) Monocytes % (Manual) Eosinophils % (Manual) Basophils % (Manual) Nucleated RBC % Seg Neutrophils # Seg Neutrophils # Man Lymphocytes # (Manual) Monocytes # (Manual) Eosinophils # (Manual) Basophils # (Manual) PT INR Fibrinogen dRVVT Confirm Interp Factor V Activity POC ABG pH POC ABG pCO2 POC ABG pO2 ABG pO2 ABG HCO3 ABG Base Excess ABG Hemoglobin Oxyhemoglobin Sodium Potassium Chloride Carbon Dioxide BUN Creatinine Glucose POC Glucose 142 H 143 H 128 H Lactic Acid Calcium Phosphorus Magnesium Direct Bilirubin AST ALT Alkaline Phosphatase Lactate Dehydrogenase Troponin T C-Reactive Protein Total Protein Albumin Prealbumin Triglycerides Cholesterol LDL Cholesterol Direct HDL Cholesterol Urine pH Urine WBC (Auto) Urine Creatinine Urine Total Protein Fluid Total Protein Vancomycin Trough Rheumatoid Factor Complement C4 Miscellaneous Test Crossmatch 11/02/16 11/02/16 11/02/16 04:16 05:29 11:58 WBC RBC Hgb Hct MCV MCH MCHC RDW Plt Count Lymph % (Auto) [place] % (Auto) Lymph # [place] # Baso # Seg Neutrophils % Seg Neuts % (Manual) Lymphocytes % (Manual) Monocytes % (Manual) Eosinophils % (Manual) Basophils % (Manual) Nucleated RBC % Seg Neutrophils # Seg Neutrophils # Man Lymphocytes # (Manual) Monocytes # (Manual) Eosinophils # (Manual) Basophils # (Manual) PT INR Fibrinogen dRVVT Confirm Interp Factor V Activity POC ABG pH POC ABG pCO2 POC ABG pO2 ABG pO2 ABG HCO3 ABG Base Excess ABG Hemoglobin Oxyhemoglobin Sodium Potassium 3.1 L Chloride Carbon Dioxide BUN 73 H Creatinine 2.3 H Glucose 112 H POC Glucose 135 H 149 H Lactic Acid Calcium Phosphorus Magnesium Direct Bilirubin AST ALT Alkaline Phosphatase Lactate Dehydrogenase Troponin T C-Reactive Protein Total Protein Albumin Prealbumin Triglycerides Cholesterol LDL Cholesterol Direct HDL Cholesterol Urine pH Urine WBC (Auto) Urine Creatinine Urine Total Protein Fluid Total Protein Vancomycin Trough Rheumatoid Factor Complement C4 Miscellaneous Test Crossmatch 11/02/16 11/02/16 11/03/16 17:42 22:54 06:00 WBC RBC Hgb Hct MCV MCH MCHC RDW Plt Count Lymph % (Auto) [place] % (Auto) Lymph # [place] # Baso # Seg Neutrophils % Seg Neuts % (Manual) Lymphocytes % (Manual) Monocytes % (Manual) Eosinophils % (Manual) Basophils % (Manual) Nucleated RBC % Seg Neutrophils # Seg Neutrophils # Man Lymphocytes # (Manual) Monocytes # (Manual) Eosinophils # (Manual) Basophils # (Manual) PT INR Fibrinogen dRVVT Confirm Interp Factor V Activity POC ABG pH POC ABG pCO2 POC ABG pO2 ABG pO2 ABG HCO3 ABG Base Excess ABG Hemoglobin Oxyhemoglobin Sodium Potassium Chloride 96.7 L Carbon Dioxide BUN 41 H Creatinine 1.5 H Glucose 145 H POC Glucose 182 H 115 H Lactic Acid Calcium Phosphorus 1.60 L D Magnesium 1.50 L Direct Bilirubin AST ALT Alkaline Phosphatase Lactate Dehydrogenase Troponin T C-Reactive Protein Total Protein Albumin Prealbumin Triglycerides Cholesterol LDL Cholesterol Direct HDL Cholesterol Urine pH Urine WBC (Auto) Urine Creatinine Urine Total Protein Fluid Total Protein Vancomycin Trough Rheumatoid Factor Complement C4 Miscellaneous Test Crossmatch 11/03/16 11/03/16 11/03/16 11:53 17:45 23:37 WBC RBC Hgb Hct MCV MCH MCHC RDW Plt Count Lymph % (Auto) [place] % (Auto) Lymph # [place] # Baso # Seg Neutrophils % Seg Neuts % (Manual) Lymphocytes % (Manual) Monocytes % (Manual) Eosinophils % (Manual) Basophils % (Manual) Nucleated RBC % Seg Neutrophils # Seg Neutrophils # Man Lymphocytes # (Manual) Monocytes # (Manual) Eosinophils # (Manual) Basophils # (Manual) PT INR Fibrinogen dRVVT Confirm Interp Factor V Activity POC ABG pH POC ABG pCO2 POC ABG pO2 ABG pO2 ABG HCO3 ABG Base Excess ABG Hemoglobin Oxyhemoglobin Sodium Potassium Chloride Carbon Dioxide BUN Creatinine Glucose POC Glucose 131 H 134 H 113 H Lactic Acid Calcium Phosphorus Magnesium Direct Bilirubin AST ALT Alkaline Phosphatase Lactate Dehydrogenase Troponin T C-Reactive Protein Total Protein Albumin Prealbumin Triglycerides Cholesterol LDL Cholesterol Direct HDL Cholesterol Urine pH Urine WBC (Auto) Urine Creatinine Urine Total Protein Fluid Total Protein Vancomycin Trough Rheumatoid Factor Complement C4 Miscellaneous Test Crossmatch 11/04/16 11/04/16 11/04/16 05:41 06:00 12:10 WBC RBC Hgb Hct MCV MCH MCHC RDW Plt Count Lymph % (Auto) [place] % (Auto) Lymph # [place] # Baso # Seg Neutrophils % Seg Neuts % (Manual) Lymphocytes % (Manual) Monocytes % (Manual) Eosinophils % (Manual) Basophils % (Manual) Nucleated RBC % Seg Neutrophils # Seg Neutrophils # Man Lymphocytes # (Manual) Monocytes # (Manual) Eosinophils # (Manual) Basophils # (Manual) PT INR Fibrinogen dRVVT Confirm Interp Factor V Activity POC ABG pH POC ABG pCO2 POC ABG pO2 ABG pO2 ABG HCO3 ABG Base Excess ABG Hemoglobin Oxyhemoglobin Sodium Potassium Chloride 96.7 L Carbon Dioxide BUN 52 H Creatinine 1.9 H Glucose 126 H POC Glucose 137 H 191 H Lactic Acid Calcium Phosphorus Magnesium Direct Bilirubin AST ALT Alkaline Phosphatase Lactate Dehydrogenase Troponin T C-Reactive Protein Total Protein Albumin Prealbumin Triglycerides Cholesterol LDL Cholesterol Direct HDL Cholesterol Urine pH Urine WBC (Auto) Urine Creatinine Urine Total Protein Fluid Total Protein Vancomycin Trough Rheumatoid Factor Complement C4 Miscellaneous Test Crossmatch 11/04/16 11/05/16 11/05/16 22:57 03:10 05:10 WBC RBC Hgb Hct MCV MCH MCHC RDW Plt Count Lymph % (Auto) [place] % (Auto) Lymph # [place] # Baso # Seg Neutrophils % Seg Neuts % (Manual) Lymphocytes % (Manual) Monocytes % (Manual) Eosinophils % (Manual) Basophils % (Manual) Nucleated RBC % Seg Neutrophils # Seg Neutrophils # Man Lymphocytes # (Manual) Monocytes # (Manual) Eosinophils # (Manual) Basophils # (Manual) PT INR Fibrinogen dRVVT Confirm Interp Factor V Activity POC ABG pH POC ABG pCO2 POC ABG pO2 ABG pO2 ABG HCO3 ABG Base Excess ABG Hemoglobin Oxyhemoglobin Sodium 136 L Potassium Chloride 97.2 L Carbon Dioxide BUN 32 H Creatinine 1.3 H Glucose 123 H POC Glucose 125 H 108 H Lactic Acid Calcium 7.8 L Phosphorus Magnesium Direct Bilirubin AST ALT Alkaline Phosphatase Lactate Dehydrogenase Troponin T C-Reactive Protein Total Protein Albumin Prealbumin Triglycerides Cholesterol LDL Cholesterol Direct HDL Cholesterol Urine pH Urine WBC (Auto) Urine Creatinine Urine Total Protein Fluid Total Protein Vancomycin Trough Rheumatoid Factor Complement C4 Miscellaneous Test Crossmatch 11/05/16 11/05/16 11/05/16 12:23 13:09 13:25 WBC RBC Hgb Hct MCV MCH MCHC RDW Plt Count Lymph % (Auto) [place] % (Auto) Lymph # [place] # Baso # Seg Neutrophils % Seg Neuts % (Manual) Lymphocytes % (Manual) Monocytes % (Manual) Eosinophils % (Manual) Basophils % (Manual) Nucleated RBC % Seg Neutrophils # Seg Neutrophils # Man Lymphocytes # (Manual) Monocytes # (Manual) Eosinophils # (Manual) Basophils # (Manual) PT INR Fibrinogen dRVVT Confirm Interp Factor V Activity POC ABG pH POC ABG pCO2 POC ABG pO2 ABG pO2 ABG HCO3 ABG Base Excess ABG Hemoglobin Oxyhemoglobin Sodium Potassium Chloride Carbon Dioxide BUN Creatinine Glucose POC Glucose 124 H Lactic Acid Calcium Phosphorus Magnesium Direct Bilirubin AST ALT Alkaline Phosphatase Lactate Dehydrogenase Troponin T C-Reactive Protein 11.40 H Total Protein Albumin Prealbumin Triglycerides Cholesterol LDL Cholesterol Direct HDL Cholesterol Urine pH 9.0 H Urine WBC (Auto) Urine Creatinine Urine Total Protein Fluid Total Protein Vancomycin Trough Rheumatoid Factor Complement C4 Miscellaneous Test Crossmatch 11/05/16 11/05/16 11/05/16 13:25 17:54 23:42 WBC RBC Hgb Hct MCV MCH MCHC RDW Plt Count Lymph % (Auto) [place] % (Auto) Lymph # [place] # Baso # Seg Neutrophils % Seg Neuts % (Manual) Lymphocytes % (Manual) Monocytes % (Manual) Eosinophils % (Manual) Basophils % (Manual) Nucleated RBC % Seg Neutrophils # Seg Neutrophils # Man Lymphocytes # (Manual) Monocytes # (Manual) Eosinophils # (Manual) Basophils # (Manual) PT INR Fibrinogen dRVVT Confirm Interp Factor V Activity POC ABG pH POC ABG pCO2 POC ABG pO2 ABG pO2 ABG HCO3 ABG Base Excess ABG Hemoglobin Oxyhemoglobin Sodium Potassium Chloride Carbon Dioxide BUN Creatinine Glucose POC Glucose 114 H 134 H Lactic Acid Calcium Phosphorus Magnesium Direct Bilirubin AST ALT Alkaline Phosphatase Lactate Dehydrogenase Troponin T C-Reactive Protein Total Protein Albumin Prealbumin Triglycerides Cholesterol LDL Cholesterol Direct HDL Cholesterol Urine pH Urine WBC (Auto) Urine Creatinine Urine Total Protein Fluid Total Protein Vancomycin Trough Rheumatoid Factor Complement C4 Miscellaneous Test Flexitest 1 H Crossmatch 11/06/16 11/06/16 11/06/16 04:56 06:25 06:25 WBC RBC 2.50 L Hgb 7.3 L Hct 22.5 L MCV MCH MCHC RDW 16.9 H Plt Count Lymph % (Auto) [place] % (Auto) 10.5 H Lymph # [place] # 1.1 H Baso # Seg Neutrophils % Seg Neuts % (Manual) Lymphocytes % (Manual) Monocytes % (Manual) Eosinophils % (Manual) Basophils % (Manual) Nucleated RBC % Seg Neutrophils # Seg Neutrophils # Man Lymphocytes # (Manual) Monocytes # (Manual) Eosinophils # (Manual) Basophils # (Manual) PT INR Fibrinogen dRVVT Confirm Interp Factor V Activity POC ABG pH POC ABG pCO2 POC ABG pO2 ABG pO2 ABG HCO3 ABG Base Excess ABG Hemoglobin Oxyhemoglobin Sodium Potassium 5.1 H Chloride 95.9 L Carbon Dioxide BUN 52 H Creatinine 1.8 H Glucose 117 H POC Glucose 120 H Lactic Acid Calcium Phosphorus Magnesium Direct Bilirubin AST 103 H ALT 77 H Alkaline Phosphatase 285 H Lactate Dehydrogenase Troponin T C-Reactive Protein Total Protein 6.2 L Albumin 1.8 L Prealbumin 0.180 L Triglycerides Cholesterol LDL Cholesterol Direct HDL Cholesterol Urine pH Urine WBC (Auto) Urine Creatinine Urine Total Protein Fluid Total Protein Vancomycin Trough Rheumatoid Factor Complement C4 Miscellaneous Test Crossmatch 09/17/17 09/17/17 09/17/17 11:56 17:14 23:52 WBC RBC Hgb Hct MCV MCH MCHC RDW Plt Count Lymph % (Auto) [place] % (Auto) Lymph # [place] # Baso # Seg Neutrophils % Seg Neuts % (Manual) Lymphocytes % (Manual) Monocytes % (Manual) Eosinophils % (Manual) Basophils % (Manual) Nucleated RBC % Seg Neutrophils # Seg Neutrophils # Man Lymphocytes # (Manual) Monocytes # (Manual) Eosinophils # (Manual) Basophils # (Manual) PT INR Fibrinogen dRVVT Confirm Interp Factor V Activity POC ABG pH POC ABG pCO2 POC ABG pO2 ABG pO2 ABG HCO3 ABG Base Excess ABG Hemoglobin Oxyhemoglobin Sodium Potassium Chloride Carbon Dioxide BUN Creatinine Glucose POC Glucose 141 H 125 H 130 H Lactic Acid Calcium Phosphorus Magnesium Direct Bilirubin AST ALT Alkaline Phosphatase Lactate Dehydrogenase Troponin T C-Reactive Protein Total Protein Albumin Prealbumin Triglycerides Cholesterol LDL Cholesterol Direct HDL Cholesterol Urine pH Urine WBC (Auto) Urine Creatinine Urine Total Protein Fluid Total Protein Vancomycin Trough Rheumatoid Factor Complement C4 Miscellaneous Test Crossmatch 11/07/16 11/07/16 11/07/16 06:30 06:30 09:37 WBC RBC 2.18 L Hgb 6.3 L Hct 19.7 L* MCV MCH MCHC RDW 16.8 H Plt Count Lymph % (Auto) [place] % (Auto) 10.0 H Lymph # [place] # 1.0 H Baso # Seg Neutrophils % Seg Neuts % (Manual) Lymphocytes % (Manual) Monocytes % (Manual) Eosinophils % (Manual) Basophils % (Manual) Nucleated RBC % Seg Neutrophils # Seg Neutrophils # Man Lymphocytes # (Manual) Monocytes # (Manual) Eosinophils # (Manual) Basophils # (Manual) PT INR Fibrinogen dRVVT Confirm Interp Factor V Activity POC ABG pH POC ABG pCO2 POC ABG pO2 ABG pO2 ABG HCO3 ABG Base Excess ABG Hemoglobin Oxyhemoglobin Sodium 135 L Potassium Chloride 95.6 L Carbon Dioxide BUN 70 H Creatinine 2.0 H Glucose 126 H POC Glucose Lactic Acid Calcium Phosphorus Magnesium Direct Bilirubin AST ALT Alkaline Phosphatase Lactate Dehydrogenase Troponin T C-Reactive Protein Total Protein Albumin Prealbumin Triglycerides Cholesterol LDL Cholesterol Direct HDL Cholesterol Urine pH Urine WBC (Auto) Urine Creatinine Urine Total Protein Fluid Total Protein Vancomycin Trough Rheumatoid Factor Complement C4 Miscellaneous Test Crossmatch See Detail 11/07/16 11/07/16 11/07/16 12:52 18:51 21:26 WBC RBC Hgb Hct MCV MCH MCHC RDW Plt Count Lymph % (Auto) [place] % (Auto) Lymph # [place] # Baso # Seg Neutrophils % Seg Neuts % (Manual) Lymphocytes % (Manual) Monocytes % (Manual) Eosinophils % (Manual) Basophils % (Manual) Nucleated RBC % Seg Neutrophils # Seg Neutrophils # Man Lymphocytes # (Manual) Monocytes # (Manual) Eosinophils # (Manual) Basophils # (Manual) PT INR Fibrinogen dRVVT Confirm Interp Factor V Activity POC ABG pH 7.523 H POC ABG pCO2 34.6 L POC ABG pO2 53 L ABG pO2 ABG HCO3 ABG Base Excess ABG Hemoglobin Oxyhemoglobin Sodium Potassium Chloride Carbon Dioxide BUN Creatinine Glucose POC Glucose 142 H 155 H Lactic Acid Calcium Phosphorus Magnesium Direct Bilirubin AST ALT Alkaline Phosphatase Lactate Dehydrogenase Troponin T C-Reactive Protein Total Protein Albumin Prealbumin Triglycerides Cholesterol LDL Cholesterol Direct HDL Cholesterol Urine pH Urine WBC (Auto) Urine Creatinine Urine Total Protein Fluid Total Protein Vancomycin Trough Rheumatoid Factor Complement C4 Miscellaneous Test Crossmatch 11/07/16 11/08/16 11/08/16 21:34 13:03 23:37 WBC RBC 2.63 L Hgb 7.7 L Hct 22.7 L MCV MCH MCHC RDW 17.0 H Plt Count Lymph % (Auto) [place] % (Auto) Lymph # [place] # Baso # Seg Neutrophils % Seg Neuts % (Manual) Lymphocytes % (Manual) Monocytes % (Manual) Eosinophils % (Manual) Basophils % (Manual) Nucleated RBC % Seg Neutrophils # Seg Neutrophils # Man Lymphocytes # (Manual) Monocytes # (Manual) Eosinophils # (Manual) Basophils # (Manual) PT INR Fibrinogen dRVVT Confirm Interp Factor V Activity POC ABG pH 7.478 H POC ABG pCO2 34.0 L POC ABG pO2 50 L ABG pO2 ABG HCO3 ABG Base Excess ABG Hemoglobin Oxyhemoglobin Sodium Potassium Chloride Carbon Dioxide BUN Creatinine Glucose POC Glucose 113 H Lactic Acid Calcium Phosphorus Magnesium Direct Bilirubin AST ALT Alkaline Phosphatase Lactate Dehydrogenase Troponin T C-Reactive Protein Total Protein Albumin Prealbumin Triglycerides Cholesterol LDL Cholesterol Direct HDL Cholesterol Urine pH Urine WBC (Auto) Urine Creatinine Urine Total Protein Fluid Total Protein Vancomycin Trough Rheumatoid Factor Complement C4 Miscellaneous Test Crossmatch 11/09/16 11/09/16 11/09/16 04:35 10:15 18:21 WBC RBC 2.68 L Hgb 7.8 L Hct 23.3 L MCV MCH MCHC RDW 17.0 H Plt Count Lymph % (Auto) [place] % (Auto) 12.1 H Lymph # [place] # 1.1 H Baso # Seg Neutrophils % Seg Neuts % (Manual) Lymphocytes % (Manual) Monocytes % (Manual) Eosinophils % (Manual) Basophils % (Manual) Nucleated RBC % Seg Neutrophils # Seg Neutrophils # Man Lymphocytes # (Manual) Monocytes # (Manual) Eosinophils # (Manual) Basophils # (Manual) PT INR Fibrinogen dRVVT Confirm Interp Factor V Activity POC ABG pH POC ABG pCO2 POC ABG pO2 ABG pO2 ABG HCO3 ABG Base Excess ABG Hemoglobin Oxyhemoglobin Sodium Potassium Chloride Carbon Dioxide BUN 51 H Creatinine 1.8 H Glucose POC Glucose 60 L Lactic Acid Calcium 8.3 L Phosphorus Magnesium Direct Bilirubin AST ALT Alkaline Phosphatase Lactate Dehydrogenase Troponin T C-Reactive Protein Total Protein Albumin Prealbumin Triglycerides Cholesterol LDL Cholesterol Direct HDL Cholesterol Urine pH Urine WBC (Auto) Urine Creatinine Urine Total Protein Fluid Total Protein Vancomycin Trough Rheumatoid Factor Complement C4 Miscellaneous Test Crossmatch 11/09/16 11/10/16 11/10/16 18:55 07:00 11:51 WBC RBC Hgb Hct MCV MCH MCHC RDW Plt Count Lymph % (Auto) [place] % (Auto) Lymph # [place] # Baso # Seg Neutrophils % Seg Neuts % (Manual) Lymphocytes % (Manual) Monocytes % (Manual) Eosinophils % (Manual) Basophils % (Manual) Nucleated RBC % Seg Neutrophils # Seg Neutrophils # Man Lymphocytes # (Manual) Monocytes # (Manual) Eosinophils # (Manual) Basophils # (Manual) PT INR Fibrinogen dRVVT Confirm Interp Factor V Activity POC ABG pH POC ABG pCO2 POC ABG pO2 ABG pO2 ABG HCO3 ABG Base Excess ABG Hemoglobin Oxyhemoglobin Sodium Potassium 3.0 L D Chloride 97.4 L Carbon Dioxide BUN 28 H Creatinine 1.3 H Glucose POC Glucose 68 L 120 H Lactic Acid Calcium 7.8 L Phosphorus Magnesium Direct Bilirubin AST ALT Alkaline Phosphatase Lactate Dehydrogenase Troponin T C-Reactive Protein Total Protein Albumin Prealbumin Triglycerides Cholesterol LDL Cholesterol Direct HDL Cholesterol Urine pH Urine WBC (Auto) Urine Creatinine Urine Total Protein Fluid Total Protein Vancomycin Trough Rheumatoid Factor Complement C4 Miscellaneous Test Crossmatch 11/10/16 11/11/16 11/11/16 14:20 06:59 06:59 WBC RBC 2.81 L Hgb 8.1 L Hct 24.4 L MCV MCH MCHC RDW 16.4 H Plt Count Lymph % (Auto) [place] % (Auto) 10.8 H Lymph # [place] # 1.0 H Baso # Seg Neutrophils % Seg Neuts % (Manual) Lymphocytes % (Manual) Monocytes % (Manual) Eosinophils % (Manual) Basophils % (Manual) Nucleated RBC % Seg Neutrophils # Seg Neutrophils # Man Lymphocytes # (Manual) Monocytes # (Manual) Eosinophils # (Manual) Basophils # (Manual) PT INR Fibrinogen dRVVT Confirm Interp Factor V Activity POC ABG pH POC ABG pCO2 POC ABG pO2 ABG pO2 ABG HCO3 ABG Base Excess ABG Hemoglobin Oxyhemoglobin Sodium Potassium Chloride Carbon Dioxide BUN Creatinine Glucose POC Glucose Lactic Acid Calcium Phosphorus Magnesium Direct Bilirubin AST ALT Alkaline Phosphatase Lactate Dehydrogenase 196 H Troponin T C-Reactive Protein Total Protein 6.1 L Albumin Prealbumin Triglycerides Cholesterol LDL Cholesterol Direct HDL Cholesterol Urine pH Urine WBC (Auto) Urine Creatinine Urine Total Protein Fluid Total Protein < 3.0 L Vancomycin Trough Rheumatoid Factor Complement C4 Miscellaneous Test Crossmatch 11/11/16 11/11/16 11/12/16 06:59 09:50 04:00 WBC RBC Hgb Hct MCV MCH MCHC RDW Plt Count Lymph % (Auto) [place] % (Auto) Lymph # [place] # Baso # Seg Neutrophils % Seg Neuts % (Manual) Lymphocytes % (Manual) Monocytes % (Manual) Eosinophils % (Manual) Basophils % (Manual) Nucleated RBC % Seg Neutrophils # Seg Neutrophils # Man Lymphocytes # (Manual) Monocytes # (Manual) Eosinophils # (Manual) Basophils # (Manual) PT INR 1.18 H Fibrinogen dRVVT Confirm Interp Factor V Activity POC ABG pH POC ABG pCO2 POC ABG pO2 ABG pO2 ABG HCO3 ABG Base Excess ABG Hemoglobin Oxyhemoglobin Sodium 136 L 133 L Potassium Chloride 96.1 L 94.8 L Carbon Dioxide 21 L BUN 37 H 42 H Creatinine 1.8 H 2.0 H Glucose POC Glucose Lactic Acid Calcium Phosphorus Magnesium Direct Bilirubin AST ALT Alkaline Phosphatase Lactate Dehydrogenase Troponin T C-Reactive Protein Total Protein Albumin Prealbumin Triglycerides Cholesterol LDL Cholesterol Direct HDL Cholesterol Urine pH Urine WBC (Auto) Urine Creatinine Urine Total Protein Fluid Total Protein Vancomycin Trough Rheumatoid Factor Complement C4 Miscellaneous Test Crossmatch 11/12/16 11/12/16 11/13/16 04:00 23:55 05:53 WBC RBC Hgb 8.9 L Hct 27.2 L MCV MCH MCHC RDW Plt Count Lymph % (Auto) [place] % (Auto) Lymph # [place] # Baso # Seg Neutrophils % Seg Neuts % (Manual) Lymphocytes % (Manual) Monocytes % (Manual) Eosinophils % (Manual) Basophils % (Manual) Nucleated RBC % Seg Neutrophils # Seg Neutrophils # Man Lymphocytes # (Manual) Monocytes # (Manual) Eosinophils # (Manual) Basophils # (Manual) PT INR Fibrinogen dRVVT Confirm Interp Factor V Activity POC ABG pH POC ABG pCO2 POC ABG pO2 ABG pO2 ABG HCO3 ABG Base Excess ABG Hemoglobin Oxyhemoglobin Sodium Potassium Chloride Carbon Dioxide BUN Creatinine Glucose POC Glucose 132 H 120 H Lactic Acid Calcium Phosphorus Magnesium Direct Bilirubin AST ALT Alkaline Phosphatase Lactate Dehydrogenase Troponin T C-Reactive Protein Total Protein Albumin Prealbumin Triglycerides Cholesterol LDL Cholesterol Direct HDL Cholesterol Urine pH Urine WBC (Auto) Urine Creatinine Urine Total Protein Fluid Total Protein Vancomycin Trough Rheumatoid Factor Complement C4 Miscellaneous Test Crossmatch 11/13/16 11/13/16 11/13/16 11:43 17:09 23:41 WBC RBC Hgb Hct MCV MCH MCHC RDW Plt Count Lymph % (Auto) [place] % (Auto) Lymph # [place] # Baso # Seg Neutrophils % Seg Neuts % (Manual) Lymphocytes % (Manual) Monocytes % (Manual) Eosinophils % (Manual) Basophils % (Manual) Nucleated RBC % Seg Neutrophils # Seg Neutrophils # Man Lymphocytes # (Manual) Monocytes # (Manual) Eosinophils # (Manual) Basophils # (Manual) PT INR Fibrinogen dRVVT Confirm Interp Factor V Activity POC ABG pH POC ABG pCO2 POC ABG pO2 ABG pO2 ABG HCO3 ABG Base Excess ABG Hemoglobin Oxyhemoglobin Sodium Potassium Chloride Carbon Dioxide BUN Creatinine Glucose POC Glucose 114 H 113 H 108 H Lactic Acid Calcium Phosphorus Magnesium Direct Bilirubin AST ALT Alkaline Phosphatase Lactate Dehydrogenase Troponin T C-Reactive Protein Total Protein Albumin Prealbumin Triglycerides Cholesterol LDL Cholesterol Direct HDL Cholesterol Urine pH Urine WBC (Auto) Urine Creatinine Urine Total Protein Fluid Total Protein Vancomycin Trough Rheumatoid Factor Complement C4 Miscellaneous Test Crossmatch 11/13/16 11/15/16 11/15/16 Unknown 00:37 03:30 WBC 11.2 H RBC 2.72 L Hgb 7.6 L Hct 23.4 L MCV MCH MCHC RDW 16.5 H Plt Count Lymph % (Auto) [place] % (Auto) Lymph # [place] # Baso # Seg Neutrophils % Seg Neuts % (Manual) Lymphocytes % (Manual) Monocytes % (Manual) Eosinophils % (Manual) Basophils % (Manual) Nucleated RBC % Seg Neutrophils # Seg Neutrophils # Man Lymphocytes # (Manual) Monocytes # (Manual) Eosinophils # (Manual) Basophils # (Manual) PT INR Fibrinogen dRVVT Confirm Interp Factor V Activity POC ABG pH POC ABG pCO2 POC ABG pO2 ABG pO2 ABG HCO3 ABG Base Excess ABG Hemoglobin Oxyhemoglobin Sodium 135 L Potassium Chloride 95.2 L Carbon Dioxide BUN 52 H Creatinine 2.2 H Glucose POC Glucose 108 H Lactic Acid Calcium Phosphorus Magnesium Direct Bilirubin AST ALT Alkaline Phosphatase Lactate Dehydrogenase Troponin T C-Reactive Protein Total Protein Albumin Prealbumin Triglycerides Cholesterol LDL Cholesterol Direct HDL Cholesterol Urine pH Urine WBC (Auto) Urine Creatinine Urine Total Protein Fluid Total Protein Vancomycin Trough Rheumatoid Factor Complement C4 Miscellaneous Test Crossmatch 11/15/16 11/15/16 11/15/16 03:30 05:04 11:50 WBC RBC Hgb Hct MCV MCH MCHC RDW Plt Count Lymph % (Auto) [place] % (Auto) Lymph # [place] # Baso # Seg Neutrophils % Seg Neuts % (Manual) Lymphocytes % (Manual) Monocytes % (Manual) Eosinophils % (Manual) Basophils % (Manual) Nucleated RBC % Seg Neutrophils # Seg Neutrophils # Man Lymphocytes # (Manual) Monocytes # (Manual) Eosinophils # (Manual) Basophils # (Manual) PT INR Fibrinogen dRVVT Confirm Interp Factor V Activity POC ABG pH POC ABG pCO2 POC ABG pO2 ABG pO2 ABG HCO3 ABG Base Excess ABG Hemoglobin Oxyhemoglobin Sodium Potassium 3.4 L Chloride Carbon Dioxide BUN 25 H Creatinine 1.5 H Glucose 103 H POC Glucose 121 H 144 H Lactic Acid Calcium Phosphorus Magnesium Direct Bilirubin AST ALT Alkaline Phosphatase Lactate Dehydrogenase Troponin T C-Reactive Protein Total Protein Albumin Prealbumin Triglycerides Cholesterol LDL Cholesterol Direct HDL Cholesterol Urine pH Urine WBC (Auto) Urine Creatinine Urine Total Protein Fluid Total Protein Vancomycin Trough Rheumatoid Factor Complement C4 Miscellaneous Test Crossmatch 11/15/16 11/15/16 11/16/16 21:28 23:20 11:44 WBC RBC Hgb Hct MCV MCH MCHC RDW Plt Count Lymph % (Auto) [place] % (Auto) Lymph # [place] # Baso # Seg Neutrophils % Seg Neuts % (Manual) Lymphocytes % (Manual) Monocytes % (Manual) Eosinophils % (Manual) Basophils % (Manual) Nucleated RBC % Seg Neutrophils # Seg Neutrophils # Man Lymphocytes # (Manual) Monocytes # (Manual) Eosinophils # (Manual) Basophils # (Manual) PT INR Fibrinogen dRVVT Confirm Interp Factor V Activity POC ABG pH 7.462 H POC ABG pCO2 POC ABG pO2 71 L ABG pO2 ABG HCO3 ABG Base Excess ABG Hemoglobin Oxyhemoglobin Sodium Potassium Chloride Carbon Dioxide BUN Creatinine Glucose POC Glucose 116 H 133 H Lactic Acid Calcium Phosphorus Magnesium Direct Bilirubin AST ALT Alkaline Phosphatase Lactate Dehydrogenase Troponin T C-Reactive Protein Total Protein Albumin Prealbumin Triglycerides Cholesterol LDL Cholesterol Direct HDL Cholesterol Urine pH Urine WBC (Auto) Urine Creatinine Urine Total Protein Fluid Total Protein Vancomycin Trough Rheumatoid Factor Complement C4 Miscellaneous Test Crossmatch 11/16/16 11/16/16 11/16/16 12:20 17:05 23:35 WBC 11.7 H RBC 2.73 L Hgb 7.6 L Hct 23.7 L MCV MCH MCHC RDW 16.6 H Plt Count Lymph % (Auto) [place] % (Auto) Lymph # [place] # Baso # Seg Neutrophils % Seg Neuts % (Manual) Lymphocytes % (Manual) Monocytes % (Manual) Eosinophils % (Manual) Basophils % (Manual) Nucleated RBC % Seg Neutrophils # Seg Neutrophils # Man Lymphocytes # (Manual) Monocytes # (Manual) Eosinophils # (Manual) Basophils # (Manual) PT INR Fibrinogen dRVVT Confirm Interp Factor V Activity POC ABG pH POC ABG pCO2 POC ABG pO2 ABG pO2 ABG HCO3 ABG Base Excess ABG Hemoglobin Oxyhemoglobin Sodium Potassium Chloride Carbon Dioxide BUN Creatinine Glucose POC Glucose 154 H 125 H Lactic Acid Calcium Phosphorus Magnesium Direct Bilirubin AST ALT Alkaline Phosphatase Lactate Dehydrogenase Troponin T C-Reactive Protein Total Protein Albumin Prealbumin Triglycerides Cholesterol LDL Cholesterol Direct HDL Cholesterol Urine pH Urine WBC (Auto) Urine Creatinine Urine Total Protein Fluid Total Protein Vancomycin Trough Rheumatoid Factor Complement C4 Miscellaneous Test Crossmatch 11/17/16 11/17/16 11/17/16 03:20 03:20 03:20 WBC RBC 2.55 L Hgb 7.3 L Hct 21.9 L MCV MCH MCHC RDW 16.6 H Plt Count Lymph % (Auto) [place] % (Auto) 11.5 H Lymph # [place] # 1.1 H Baso # Seg Neutrophils % Seg Neuts % (Manual) Lymphocytes % (Manual) Monocytes % (Manual) Eosinophils % (Manual) Basophils % (Manual) Nucleated RBC % Seg Neutrophils # Seg Neutrophils # Man Lymphocytes # (Manual) Monocytes # (Manual) Eosinophils # (Manual) Basophils # (Manual) PT 16.8 H INR 1.37 H Fibrinogen dRVVT Confirm Interp Factor V Activity POC ABG pH POC ABG pCO2 POC ABG pO2 ABG pO2 ABG HCO3 ABG Base Excess ABG Hemoglobin Oxyhemoglobin Sodium Potassium 3.5 L Chloride Carbon Dioxide BUN 21 H Creatinine Glucose POC Glucose Lactic Acid Calcium 7.9 L Phosphorus Magnesium Direct Bilirubin AST ALT Alkaline Phosphatase Lactate Dehydrogenase Troponin T C-Reactive Protein Total Protein Albumin Prealbumin Triglycerides Cholesterol LDL Cholesterol Direct HDL Cholesterol Urine pH Urine WBC (Auto) Urine Creatinine Urine Total Protein Fluid Total Protein Vancomycin Trough Rheumatoid Factor Complement C4 Miscellaneous Test Crossmatch 11/17/16 11/17/16 11/17/16 06:34 11:21 21:22 WBC RBC Hgb Hct MCV MCH MCHC RDW Plt Count Lymph % (Auto) [place] % (Auto) Lymph # [place] # Baso # Seg Neutrophils % Seg Neuts % (Manual) Lymphocytes % (Manual) Monocytes % (Manual) Eosinophils % (Manual) Basophils % (Manual) Nucleated RBC % Seg Neutrophils # Seg Neutrophils # Man Lymphocytes # (Manual) Monocytes # (Manual) Eosinophils # (Manual) Basophils # (Manual) PT INR Fibrinogen dRVVT Confirm Interp Factor V Activity POC ABG pH 7.467 H POC ABG pCO2 POC ABG pO2 73 L ABG pO2 ABG HCO3 ABG Base Excess ABG Hemoglobin Oxyhemoglobin Sodium Potassium Chloride Carbon Dioxide BUN Creatinine Glucose POC Glucose 121 H 119 H Lactic Acid Calcium Phosphorus Magnesium Direct Bilirubin AST ALT Alkaline Phosphatase Lactate Dehydrogenase Troponin T C-Reactive Protein Total Protein Albumin Prealbumin Triglycerides Cholesterol LDL Cholesterol Direct HDL Cholesterol Urine pH Urine WBC (Auto) Urine Creatinine Urine Total Protein Fluid Total Protein Vancomycin Trough Rheumatoid Factor Complement C4 Miscellaneous Test Crossmatch 11/18/16 11/18/16 11/19/16 12:16 17:19 00:00 WBC RBC Hgb Hct MCV MCH MCHC RDW Plt Count Lymph % (Auto) [place] % (Auto) Lymph # [place] # Baso # Seg Neutrophils % Seg Neuts % (Manual) Lymphocytes % (Manual) Monocytes % (Manual) Eosinophils % (Manual) Basophils % (Manual) Nucleated RBC % Seg Neutrophils # Seg Neutrophils # Man Lymphocytes # (Manual) Monocytes # (Manual) Eosinophils # (Manual) Basophils # (Manual) PT INR Fibrinogen dRVVT Confirm Interp Factor V Activity POC ABG pH POC ABG pCO2 POC ABG pO2 ABG pO2 ABG HCO3 ABG Base Excess ABG Hemoglobin Oxyhemoglobin Sodium Potassium Chloride Carbon Dioxide BUN Creatinine Glucose POC Glucose 124 H 162 H 139 H Lactic Acid Calcium Phosphorus Magnesium Direct Bilirubin AST ALT Alkaline Phosphatase Lactate Dehydrogenase Troponin T C-Reactive Protein Total Protein Albumin Prealbumin Triglycerides Cholesterol LDL Cholesterol Direct HDL Cholesterol Urine pH Urine WBC (Auto) Urine Creatinine Urine Total Protein Fluid Total Protein Vancomycin Trough Rheumatoid Factor Complement C4 Miscellaneous Test Crossmatch 11/19/16 11/19/16 11/20/16 05:00 12:43 00:40 WBC RBC Hgb Hct MCV MCH MCHC RDW Plt Count Lymph % (Auto) [place] % (Auto) Lymph # [place] # Baso # Seg Neutrophils % Seg Neuts % (Manual) Lymphocytes % (Manual) Monocytes % (Manual) Eosinophils % (Manual) Basophils % (Manual) Nucleated RBC % Seg Neutrophils # Seg Neutrophils # Man Lymphocytes # (Manual) Monocytes # (Manual) Eosinophils # (Manual) Basophils # (Manual) PT INR Fibrinogen dRVVT Confirm Interp Factor V Activity POC ABG pH POC ABG pCO2 POC ABG pO2 ABG pO2 ABG HCO3 ABG Base Excess ABG Hemoglobin Oxyhemoglobin Sodium Potassium Chloride Carbon Dioxide BUN Creatinine Glucose POC Glucose 110 H 125 H 136 H Lactic Acid Calcium Phosphorus Magnesium Direct Bilirubin AST ALT Alkaline Phosphatase Lactate Dehydrogenase Troponin T C-Reactive Protein Total Protein Albumin Prealbumin Triglycerides Cholesterol LDL Cholesterol Direct HDL Cholesterol Urine pH Urine WBC (Auto) Urine Creatinine Urine Total Protein Fluid Total Protein Vancomycin Trough Rheumatoid Factor Complement C4 Miscellaneous Test Crossmatch 11/20/16 11/20/16 11/20/16 05:00 05:00 05:51 WBC 13.1 H RBC 2.74 L Hgb 7.7 L Hct 23.6 L MCV MCH MCHC RDW 16.9 H Plt Count Lymph % (Auto) [place] % (Auto) 10.8 H Lymph # [place] # 1.4 H Baso # Seg Neutrophils % Seg Neuts % (Manual) Lymphocytes % (Manual) Monocytes % (Manual) Eosinophils % (Manual) Basophils % (Manual) Nucleated RBC % Seg Neutrophils # 7.9 H Seg Neutrophils # Man Lymphocytes # (Manual) Monocytes # (Manual) Eosinophils # (Manual) Basophils # (Manual) PT INR Fibrinogen dRVVT Confirm Interp Factor V Activity POC ABG pH POC ABG pCO2 POC ABG pO2 ABG pO2 ABG HCO3 ABG Base Excess ABG Hemoglobin Oxyhemoglobin Sodium Potassium Chloride Carbon Dioxide BUN 31 H Creatinine 1.8 H Glucose 129 H POC Glucose 133 H Lactic Acid Calcium Phosphorus Magnesium Direct Bilirubin AST ALT Alkaline Phosphatase Lactate Dehydrogenase Troponin T C-Reactive Protein Total Protein Albumin Prealbumin Triglycerides Cholesterol LDL Cholesterol Direct HDL Cholesterol Urine pH Urine WBC (Auto) Urine Creatinine Urine Total Protein Fluid Total Protein Vancomycin Trough Rheumatoid Factor Complement C4 Miscellaneous Test Crossmatch 11/20/16 11/20/16 11/21/16 12:40 18:10 01:20 WBC RBC Hgb Hct MCV MCH MCHC RDW Plt Count Lymph % (Auto) [place] % (Auto) Lymph # [place] # Baso # Seg Neutrophils % Seg Neuts % (Manual) Lymphocytes % (Manual) Monocytes % (Manual) Eosinophils % (Manual) Basophils % (Manual) Nucleated RBC % Seg Neutrophils # Seg Neutrophils # Man Lymphocytes # (Manual) Monocytes # (Manual) Eosinophils # (Manual) Basophils # (Manual) PT INR Fibrinogen dRVVT Confirm Interp Factor V Activity POC ABG pH POC ABG pCO2 POC ABG pO2 ABG pO2 ABG HCO3 ABG Base Excess ABG Hemoglobin Oxyhemoglobin Sodium Potassium Chloride Carbon Dioxide BUN Creatinine Glucose POC Glucose 134 H 138 H 136 H Lactic Acid Calcium Phosphorus Magnesium Direct Bilirubin AST ALT Alkaline Phosphatase Lactate Dehydrogenase Troponin T C-Reactive Protein Total Protein Albumin Prealbumin Triglycerides Cholesterol LDL Cholesterol Direct HDL Cholesterol Urine pH Urine WBC (Auto) Urine Creatinine Urine Total Protein Fluid Total Protein Vancomycin Trough Rheumatoid Factor Complement C4 Miscellaneous Test Crossmatch 11/21/16 11/21/16 11/21/16 07:04 07:45 07:45 WBC 22.0 H RBC 2.91 L Hgb 8.2 L Hct 25.4 L MCV MCH MCHC RDW 17.1 H Plt Count Lymph % (Auto) [place] % (Auto) Lymph # [place] # Baso # Seg Neutrophils % Seg Neuts % (Manual) Lymphocytes % (Manual) 8.0 L Monocytes % (Manual) Eosinophils % (Manual) Basophils % (Manual) Nucleated RBC % Seg Neutrophils # Seg Neutrophils # Man 14.7 H Lymphocytes # (Manual) Monocytes # (Manual) 1.1 H Eosinophils # (Manual) Basophils # (Manual) PT INR Fibrinogen dRVVT Confirm Interp Factor V Activity POC ABG pH POC ABG pCO2 POC ABG pO2 ABG pO2 ABG HCO3 ABG Base Excess ABG Hemoglobin Oxyhemoglobin Sodium Potassium Chloride Carbon Dioxide BUN 42 H Creatinine 2.0 H Glucose POC Glucose 108 H Lactic Acid Calcium Phosphorus Magnesium Direct Bilirubin AST ALT Alkaline Phosphatase Lactate Dehydrogenase Troponin T C-Reactive Protein Total Protein Albumin Prealbumin Triglycerides Cholesterol LDL Cholesterol Direct HDL Cholesterol Urine pH Urine WBC (Auto) Urine Creatinine Urine Total Protein Fluid Total Protein Vancomycin Trough Rheumatoid Factor Complement C4 Miscellaneous Test Crossmatch 11/21/16 11/21/16 11/21/16 08:38 10:09 11:20 WBC RBC Hgb Hct MCV MCH MCHC RDW Plt Count Lymph % (Auto) [place] % (Auto) Lymph # [place] # Baso # Seg Neutrophils % Seg Neuts % (Manual) Lymphocytes % (Manual) Monocytes % (Manual) Eosinophils % (Manual) Basophils % (Manual) Nucleated RBC % Seg Neutrophils # Seg Neutrophils # Man Lymphocytes # (Manual) Monocytes # (Manual) Eosinophils # (Manual) Basophils # (Manual) PT INR Fibrinogen dRVVT Confirm Interp Factor V Activity POC ABG pH 7.346 L POC ABG pCO2 34.4 L POC ABG pO2 314 H ABG pO2 ABG HCO3 ABG Base Excess ABG Hemoglobin Oxyhemoglobin Sodium Potassium Chloride Carbon Dioxide BUN Creatinine Glucose POC Glucose 195 H 153 H Lactic Acid Calcium Phosphorus Magnesium Direct Bilirubin AST ALT Alkaline Phosphatase Lactate Dehydrogenase Troponin T C-Reactive Protein Total Protein Albumin Prealbumin Triglycerides Cholesterol LDL Cholesterol Direct HDL Cholesterol Urine pH Urine WBC (Auto) Urine Creatinine Urine Total Protein Fluid Total Protein Vancomycin Trough Rheumatoid Factor Complement C4 Miscellaneous Test Crossmatch 11/21/16 11/22/16 11/22/16 23:37 04:48 05:00 WBC 29.7 H RBC 2.73 L Hgb 7.5 L Hct 24.2 L MCV MCH 27 L MCHC RDW 17.4 H Plt Count Lymph % (Auto) [place] % (Auto) Lymph # [place] # Baso # Seg Neutrophils % Seg Neuts % (Manual) Lymphocytes % (Manual) 7.0 L Monocytes % (Manual) Eosinophils % (Manual) Basophils % (Manual) Nucleated RBC % Seg Neutrophils # Seg Neutrophils # Man 15.4 H Lymphocytes # (Manual) Monocytes # (Manual) Eosinophils # (Manual) Basophils # (Manual) PT INR Fibrinogen dRVVT Confirm Interp Factor V Activity POC ABG pH POC ABG pCO2 24.6 L POC ABG pO2 189 H ABG pO2 ABG HCO3 ABG Base Excess ABG Hemoglobin Oxyhemoglobin Sodium Potassium Chloride Carbon Dioxide BUN Creatinine Glucose POC Glucose 65 L Lactic Acid Calcium Phosphorus Magnesium Direct Bilirubin AST ALT Alkaline Phosphatase Lactate Dehydrogenase Troponin T C-Reactive Protein Total Protein Albumin Prealbumin Triglycerides Cholesterol LDL Cholesterol Direct HDL Cholesterol Urine pH Urine WBC (Auto) Urine Creatinine Urine Total Protein Fluid Total Protein Vancomycin Trough Rheumatoid Factor Complement C4 Miscellaneous Test Crossmatch 11/22/16 11/23/16 11/23/16 05:00 03:44 04:06 WBC RBC 2.52 L Hgb 7.2 L Hct 21.5 L MCV MCH MCHC RDW 17.1 H Plt Count Lymph % (Auto) [place] % (Auto) 12.4 H Lymph # [place] # 1.4 H Baso # Seg Neutrophils % Seg Neuts % (Manual) Lymphocytes % (Manual) Monocytes % (Manual) Eosinophils % (Manual) Basophils % (Manual) Nucleated RBC % Seg Neutrophils # Seg Neutrophils # Man Lymphocytes # (Manual) Monocytes # (Manual) Eosinophils # (Manual) Basophils # (Manual) PT INR Fibrinogen dRVVT Confirm Interp Factor V Activity POC ABG pH 7.493 H POC ABG pCO2 29.5 L POC ABG pO2 49 L ABG pO2 ABG HCO3 ABG Base Excess ABG Hemoglobin Oxyhemoglobin Sodium 134 L Potassium Chloride 95.9 L Carbon Dioxide 14 L D BUN 51 H Creatinine 2.6 H Glucose POC Glucose Lactic Acid Calcium Phosphorus Magnesium Direct Bilirubin AST ALT Alkaline Phosphatase Lactate Dehydrogenase Troponin T C-Reactive Protein Total Protein Albumin Prealbumin Triglycerides Cholesterol LDL Cholesterol Direct HDL Cholesterol Urine pH Urine WBC (Auto) Urine Creatinine Urine Total Protein Fluid Total Protein Vancomycin Trough Rheumatoid Factor Complement C4 Miscellaneous Test Crossmatch 11/23/16 11/23/16 11/24/16 04:06 11:29 06:39 WBC RBC Hgb Hct MCV MCH MCHC RDW Plt Count Lymph % (Auto) [place] % (Auto) Lymph # [place] # Baso # Seg Neutrophils % Seg Neuts % (Manual) Lymphocytes % (Manual) Monocytes % (Manual) Eosinophils % (Manual) Basophils % (Manual) Nucleated RBC % Seg Neutrophils # Seg Neutrophils # Man Lymphocytes # (Manual) Monocytes # (Manual) Eosinophils # (Manual) Basophils # (Manual) PT INR Fibrinogen dRVVT Confirm Interp Factor V Activity POC ABG pH POC ABG pCO2 POC ABG pO2 ABG pO2 ABG HCO3 ABG Base Excess ABG Hemoglobin Oxyhemoglobin Sodium 136 L Potassium Chloride 95.2 L Carbon Dioxide BUN 60 H Creatinine 2.9 H Glucose POC Glucose 69 L 305 H Lactic Acid Calcium Phosphorus Magnesium 1.60 L Direct Bilirubin AST ALT Alkaline Phosphatase Lactate Dehydrogenase Troponin T C-Reactive Protein Total Protein Albumin Prealbumin Triglycerides Cholesterol LDL Cholesterol Direct HDL Cholesterol Urine pH Urine WBC (Auto) Urine Creatinine Urine Total Protein Fluid Total Protein Vancomycin Trough Rheumatoid Factor Complement C4 Miscellaneous Test Crossmatch 11/24/16 11/24/16 11/24/16 06:43 08:08 08:08 WBC 11.2 H RBC 2.47 L Hgb 6.8 L Hct 20.6 L MCV MCH MCHC RDW 17.0 H Plt Count Lymph % (Auto) [place] % (Auto) 10.3 H Lymph # [place] # 1.2 H Baso # Seg Neutrophils % Seg Neuts % (Manual) Lymphocytes % (Manual) Monocytes % (Manual) Eosinophils % (Manual) Basophils % (Manual) Nucleated RBC % Seg Neutrophils # Seg Neutrophils # Man Lymphocytes # (Manual) Monocytes # (Manual) Eosinophils # (Manual) Basophils # (Manual) PT INR Fibrinogen dRVVT Confirm Interp Factor V Activity POC ABG pH POC ABG pCO2 POC ABG pO2 ABG pO2 ABG HCO3 ABG Base Excess ABG Hemoglobin Oxyhemoglobin Sodium 135 L Potassium Chloride 96.3 L Carbon Dioxide BUN 61 H Creatinine 3.1 H Glucose POC Glucose 62 L Lactic Acid Calcium 8.2 L Phosphorus Magnesium Direct Bilirubin AST ALT Alkaline Phosphatase Lactate Dehydrogenase Troponin T C-Reactive Protein Total Protein Albumin Prealbumin Triglycerides Cholesterol LDL Cholesterol Direct HDL Cholesterol Urine pH Urine WBC (Auto) Urine Creatinine Urine Total Protein Fluid Total Protein Vancomycin Trough Rheumatoid Factor Complement C4 Miscellaneous Test Crossmatch 11/24/16 11/24/16 11/24/16 08:34 11:20 12:41 WBC RBC Hgb Hct MCV MCH MCHC RDW Plt Count Lymph % (Auto) [place] % (Auto) Lymph # [place] # Baso # Seg Neutrophils % Seg Neuts % (Manual) Lymphocytes % (Manual) Monocytes % (Manual) Eosinophils % (Manual) Basophils % (Manual) Nucleated RBC % Seg Neutrophils # Seg Neutrophils # Man Lymphocytes # (Manual) Monocytes # (Manual) Eosinophils # (Manual) Basophils # (Manual) PT INR Fibrinogen dRVVT Confirm Interp Factor V Activity POC ABG pH POC ABG pCO2 POC ABG pO2 ABG pO2 ABG HCO3 ABG Base Excess ABG Hemoglobin Oxyhemoglobin Sodium Potassium Chloride Carbon Dioxide BUN Creatinine Glucose POC Glucose 108 H Lactic Acid Calcium Phosphorus Magnesium 1.60 L Direct Bilirubin AST ALT Alkaline Phosphatase Lactate Dehydrogenase Troponin T C-Reactive Protein Total Protein Albumin Prealbumin Triglycerides Cholesterol LDL Cholesterol Direct HDL Cholesterol Urine pH Urine WBC (Auto) Urine Creatinine Urine Total Protein Fluid Total Protein Vancomycin Trough Rheumatoid Factor Complement C4 Miscellaneous Test Crossmatch See Detail 11/25/16 11/25/16 11/25/16 00:03 04:42 04:42 WBC RBC 3.03 L Hgb 8.6 L Hct 25.3 L MCV MCH MCHC RDW 16.2 H Plt Count Lymph % (Auto) [place] % (Auto) 8.1 H Lymph # [place] # Baso # Seg Neutrophils % 71.3 H Seg Neuts % (Manual) Lymphocytes % (Manual) Monocytes % (Manual) Eosinophils % (Manual) Basophils % (Manual) Nucleated RBC % Seg Neutrophils # Seg Neutrophils # Man Lymphocytes # (Manual) Monocytes # (Manual) Eosinophils # (Manual) Basophils # (Manual) PT INR Fibrinogen dRVVT Confirm Interp Factor V Activity POC ABG pH POC ABG pCO2 POC ABG pO2 ABG pO2 ABG HCO3 ABG Base Excess ABG Hemoglobin Oxyhemoglobin Sodium Potassium Chloride Carbon Dioxide BUN 61 H Creatinine 3.0 H Glucose 102 H POC Glucose 113 H Lactic Acid Calcium 8.2 L Phosphorus Magnesium Direct Bilirubin AST ALT Alkaline Phosphatase 142 H Lactate Dehydrogenase Troponin T C-Reactive Protein Total Protein 5.7 L Albumin 1.5 L Prealbumin Triglycerides Cholesterol LDL Cholesterol Direct HDL Cholesterol Urine pH Urine WBC (Auto) Urine Creatinine Urine Total Protein Fluid Total Protein Vancomycin Trough Rheumatoid Factor Complement C4 Miscellaneous Test Crossmatch 11/25/16 11/25/16 11/25/16 05:12 11:31 14:12 WBC RBC Hgb Hct MCV MCH MCHC RDW Plt Count Lymph % (Auto) [place] % (Auto) Lymph # [place] # Baso # Seg Neutrophils % Seg Neuts % (Manual) Lymphocytes % (Manual) Monocytes % (Manual) Eosinophils % (Manual) Basophils % (Manual) Nucleated RBC % Seg Neutrophils # Seg Neutrophils # Man Lymphocytes # (Manual) Monocytes # (Manual) Eosinophils # (Manual) Basophils # (Manual) PT INR Fibrinogen dRVVT Confirm Interp Factor V Activity POC ABG pH 7.487 H POC ABG pCO2 POC ABG pO2 153 H ABG pO2 ABG HCO3 ABG Base Excess ABG Hemoglobin Oxyhemoglobin Sodium Potassium Chloride Carbon Dioxide BUN Creatinine Glucose POC Glucose 131 H 140 H Lactic Acid Calcium Phosphorus Magnesium Direct Bilirubin AST ALT Alkaline Phosphatase Lactate Dehydrogenase Troponin T C-Reactive Protein Total Protein Albumin Prealbumin Triglycerides Cholesterol LDL Cholesterol Direct HDL Cholesterol Urine pH Urine WBC (Auto) Urine Creatinine Urine Total Protein Fluid Total Protein Vancomycin Trough Rheumatoid Factor Complement C4 Miscellaneous Test Crossmatch 11/25/16 11/26/16 11/26/16 17:23 00:09 05:13 WBC RBC 2.94 L Hgb 8.4 L Hct 24.6 L MCV MCH MCHC RDW 16.4 H Plt Count Lymph % (Auto) [place] % (Auto) 12.3 H Lymph # [place] # 1.1 H Baso # Seg Neutrophils % Seg Neuts % (Manual) Lymphocytes % (Manual) Monocytes % (Manual) Eosinophils % (Manual) Basophils % (Manual) Nucleated RBC % Seg Neutrophils # Seg Neutrophils # Man Lymphocytes # (Manual) Monocytes # (Manual) Eosinophils # (Manual) Basophils # (Manual) PT INR Fibrinogen dRVVT Confirm Interp Factor V Activity POC ABG pH POC ABG pCO2 POC ABG pO2 ABG pO2 ABG HCO3 ABG Base Excess ABG Hemoglobin Oxyhemoglobin Sodium Potassium Chloride Carbon Dioxide BUN Creatinine Glucose POC Glucose 146 H 112 H Lactic Acid Calcium Phosphorus Magnesium Direct Bilirubin AST ALT Alkaline Phosphatase Lactate Dehydrogenase Troponin T C-Reactive Protein Total Protein Albumin Prealbumin Triglycerides Cholesterol LDL Cholesterol Direct HDL Cholesterol Urine pH Urine WBC (Auto) Urine Creatinine Urine Total Protein Fluid Total Protein Vancomycin Trough Rheumatoid Factor Complement C4 Miscellaneous Test Crossmatch 11/26/16 11/26/16 11/26/16 05:13 05:28 11:53 WBC RBC Hgb Hct MCV MCH MCHC RDW Plt Count Lymph % (Auto) [place] % (Auto) Lymph # [place] # Baso # Seg Neutrophils % Seg Neuts % (Manual) Lymphocytes % (Manual) Monocytes % (Manual) Eosinophils % (Manual) Basophils % (Manual) Nucleated RBC % Seg Neutrophils # Seg Neutrophils # Man Lymphocytes # (Manual) Monocytes # (Manual) Eosinophils # (Manual) Basophils # (Manual) PT INR Fibrinogen dRVVT Confirm Interp Factor V Activity POC ABG pH POC ABG pCO2 POC ABG pO2 ABG pO2 ABG HCO3 ABG Base Excess ABG Hemoglobin Oxyhemoglobin Sodium Potassium Chloride 97.8 L Carbon Dioxide BUN 37 H Creatinine 2.0 H Glucose 109 H POC Glucose 117 H 111 H Lactic Acid Calcium 7.9 L Phosphorus 1.80 L D Magnesium Direct Bilirubin AST ALT Alkaline Phosphatase Lactate Dehydrogenase Troponin T C-Reactive Protein Total Protein Albumin Prealbumin Triglycerides Cholesterol LDL Cholesterol Direct HDL Cholesterol Urine pH Urine WBC (Auto) Urine Creatinine Urine Total Protein Fluid Total Protein Vancomycin Trough Rheumatoid Factor Complement C4 Miscellaneous Test Crossmatch 11/26/16 11/27/16 11/27/16 17:14 04:50 06:02 WBC RBC Hgb Hct MCV MCH MCHC RDW Plt Count Lymph % (Auto) [place] % (Auto) Lymph # [place] # Baso # Seg Neutrophils % Seg Neuts % (Manual) Lymphocytes % (Manual) Monocytes % (Manual) Eosinophils % (Manual) Basophils % (Manual) Nucleated RBC % Seg Neutrophils # Seg Neutrophils # Man Lymphocytes # (Manual) Monocytes # (Manual) Eosinophils # (Manual) Basophils # (Manual) PT INR Fibrinogen dRVVT Confirm Interp Factor V Activity POC ABG pH POC ABG pCO2 POC ABG pO2 ABG pO2 75.2 L ABG HCO3 26.4 H ABG Base Excess ABG Hemoglobin 7.6 L Oxyhemoglobin 94.8 L Sodium Potassium Chloride Carbon Dioxide BUN 49 H Creatinine 2.3 H Glucose POC Glucose 115 H Lactic Acid Calcium Phosphorus 1.50 L Magnesium Direct Bilirubin AST ALT Alkaline Phosphatase Lactate Dehydrogenase Troponin T C-Reactive Protein Total Protein Albumin Prealbumin Triglycerides Cholesterol LDL Cholesterol Direct HDL Cholesterol Urine pH Urine WBC (Auto) Urine Creatinine Urine Total Protein Fluid Total Protein Vancomycin Trough Rheumatoid Factor Complement C4 Miscellaneous Test Crossmatch 11/27/16 11/27/16 11/27/16 06:02 11:25 17:25 WBC 11.6 H RBC 2.75 L Hgb 7.6 L Hct 23.4 L MCV MCH MCHC RDW 16.5 H Plt Count Lymph % (Auto) [place] % (Auto) Lymph # [place] # Baso # Seg Neutrophils % Seg Neuts % (Manual) Lymphocytes % (Manual) Monocytes % (Manual) Eosinophils % (Manual) Basophils % (Manual) Nucleated RBC % Seg Neutrophils # Seg Neutrophils # Man Lymphocytes # (Manual) Monocytes # (Manual) Eosinophils # (Manual) Basophils # (Manual) PT INR Fibrinogen dRVVT Confirm Interp Factor V Activity POC ABG pH POC ABG pCO2 POC ABG pO2 ABG pO2 ABG HCO3 ABG Base Excess ABG Hemoglobin Oxyhemoglobin Sodium Potassium Chloride Carbon Dioxide BUN Creatinine Glucose POC Glucose 114 H 126 H Lactic Acid Calcium Phosphorus Magnesium Direct Bilirubin AST ALT Alkaline Phosphatase Lactate Dehydrogenase Troponin T C-Reactive Protein Total Protein Albumin Prealbumin Triglycerides Cholesterol LDL Cholesterol Direct HDL Cholesterol Urine pH Urine WBC (Auto) Urine Creatinine Urine Total Protein Fluid Total Protein Vancomycin Trough Rheumatoid Factor Complement C4 Miscellaneous Test Crossmatch 11/28/16 11/28/16 11/28/16 04:45 05:33 05:44 WBC RBC Hgb Hct MCV MCH MCHC RDW Plt Count Lymph % (Auto) [place] % (Auto) Lymph # [place] # Baso # Seg Neutrophils % Seg Neuts % (Manual) Lymphocytes % (Manual) Monocytes % (Manual) Eosinophils % (Manual) Basophils % (Manual) Nucleated RBC % Seg Neutrophils # Seg Neutrophils # Man Lymphocytes # (Manual) Monocytes # (Manual) Eosinophils # (Manual) Basophils # (Manual) PT INR Fibrinogen dRVVT Confirm Interp Factor V Activity POC ABG pH POC ABG pCO2 POC ABG pO2 ABG pO2 99.3 H ABG HCO3 ABG Base Excess ABG Hemoglobin 8.3 L Oxyhemoglobin Sodium Potassium Chloride Carbon Dioxide BUN 63 H Creatinine 2.4 H Glucose 102 H POC Glucose 108 H Lactic Acid Calcium Phosphorus 1.80 L Magnesium Direct Bilirubin AST ALT Alkaline Phosphatase Lactate Dehydrogenase Troponin T C-Reactive Protein Total Protein Albumin Prealbumin Triglycerides Cholesterol LDL Cholesterol Direct HDL Cholesterol Urine pH Urine WBC (Auto) Urine Creatinine Urine Total Protein Fluid Total Protein Vancomycin Trough Rheumatoid Factor Complement C4 Miscellaneous Test Crossmatch 11/28/16 11/28/16 11/28/16 12:31 16:09 23:46 WBC RBC Hgb Hct MCV MCH MCHC RDW Plt Count Lymph % (Auto) [place] % (Auto) Lymph # [place] # Baso # Seg Neutrophils % Seg Neuts % (Manual) Lymphocytes % (Manual) Monocytes % (Manual) Eosinophils % (Manual) Basophils % (Manual) Nucleated RBC % Seg Neutrophils # Seg Neutrophils # Man Lymphocytes # (Manual) Monocytes # (Manual) Eosinophils # (Manual) Basophils # (Manual) PT INR Fibrinogen dRVVT Confirm Interp Factor V Activity POC ABG pH POC ABG pCO2 POC ABG pO2 ABG pO2 ABG HCO3 ABG Base Excess ABG Hemoglobin Oxyhemoglobin Sodium Potassium Chloride Carbon Dioxide BUN Creatinine Glucose POC Glucose 126 H 111 H 119 H Lactic Acid Calcium Phosphorus Magnesium Direct Bilirubin AST ALT Alkaline Phosphatase Lactate Dehydrogenase Troponin T C-Reactive Protein Total Protein Albumin Prealbumin Triglycerides Cholesterol LDL Cholesterol Direct HDL Cholesterol Urine pH Urine WBC (Auto) Urine Creatinine Urine Total Protein Fluid Total Protein Vancomycin Trough Rheumatoid Factor Complement C4 Miscellaneous Test Crossmatch 11/29/16 11/29/16 11/29/16 03:33 04:52 05:10 WBC RBC Hgb Hct MCV MCH MCHC RDW Plt Count Lymph % (Auto) [place] % (Auto) Lymph # [place] # Baso # Seg Neutrophils % Seg Neuts % (Manual) Lymphocytes % (Manual) Monocytes % (Manual) Eosinophils % (Manual) Basophils % (Manual) Nucleated RBC % Seg Neutrophils # Seg Neutrophils # Man Lymphocytes # (Manual) Monocytes # (Manual) Eosinophils # (Manual) Basophils # (Manual) PT INR Fibrinogen dRVVT Confirm Interp Factor V Activity POC ABG pH POC ABG pCO2 POC ABG pO2 ABG pO2 ABG HCO3 ABG Base Excess ABG Hemoglobin 7.0 L Oxyhemoglobin 94.9 L Sodium Potassium Chloride Carbon Dioxide BUN 73 H Creatinine 2.7 H Glucose POC Glucose 108 H Lactic Acid Calcium Phosphorus Magnesium Direct Bilirubin AST ALT Alkaline Phosphatase Lactate Dehydrogenase Troponin T C-Reactive Protein Total Protein Albumin Prealbumin Triglycerides Cholesterol LDL Cholesterol Direct HDL Cholesterol Urine pH Urine WBC (Auto) Urine Creatinine Urine Total Protein Fluid Total Protein Vancomycin Trough Rheumatoid Factor Complement C4 Miscellaneous Test Crossmatch 11/29/16 11/29/16 11/29/16 12:16 18:05 23:46 WBC RBC Hgb Hct MCV MCH MCHC RDW Plt Count Lymph % (Auto) [place] % (Auto) Lymph # [place] # Baso # Seg Neutrophils % Seg Neuts % (Manual) Lymphocytes % (Manual) Monocytes % (Manual) Eosinophils % (Manual) Basophils % (Manual) Nucleated RBC % Seg Neutrophils # Seg Neutrophils # Man Lymphocytes # (Manual) Monocytes # (Manual) Eosinophils # (Manual) Basophils # (Manual) PT INR Fibrinogen dRVVT Confirm Interp Factor V Activity POC ABG pH POC ABG pCO2 POC ABG pO2 ABG pO2 ABG HCO3 ABG Base Excess ABG Hemoglobin Oxyhemoglobin Sodium Potassium Chloride Carbon Dioxide BUN Creatinine Glucose POC Glucose 133 H 146 H 141 H Lactic Acid Calcium Phosphorus Magnesium Direct Bilirubin AST ALT Alkaline Phosphatase Lactate Dehydrogenase Troponin T C-Reactive Protein Total Protein Albumin Prealbumin Triglycerides Cholesterol LDL Cholesterol Direct HDL Cholesterol Urine pH Urine WBC (Auto) Urine Creatinine Urine Total Protein Fluid Total Protein Vancomycin Trough Rheumatoid Factor Complement C4 Miscellaneous Test Crossmatch 11/30/16 11/30/16 11/30/16 04:17 04:17 04:32 WBC 12.0 H RBC 2.80 L Hgb 7.8 L Hct 23.6 L MCV MCH MCHC RDW 16.6 H Plt Count Lymph % (Auto) [place] % (Auto) 11.3 H Lymph # [place] # 1.4 H Baso # Seg Neutrophils % Seg Neuts % (Manual) Lymphocytes % (Manual) Monocytes % (Manual) Eosinophils % (Manual) Basophils % (Manual) Nucleated RBC % Seg Neutrophils # 8.2 H Seg Neutrophils # Man Lymphocytes # (Manual) Monocytes # (Manual) Eosinophils # (Manual) Basophils # (Manual) PT INR Fibrinogen dRVVT Confirm Interp Factor V Activity POC ABG pH POC ABG pCO2 POC ABG pO2 ABG pO2 ABG HCO3 ABG Base Excess ABG Hemoglobin Oxyhemoglobin Sodium 169 H* D Potassium 5.1 H Chloride 121.5 H Carbon Dioxide BUN 34 H Creatinine 1.3 H D Glucose 133 H POC Glucose 131 H Lactic Acid Calcium 10.3 H Phosphorus Magnesium Direct Bilirubin AST ALT Alkaline Phosphatase Lactate Dehydrogenase Troponin T C-Reactive Protein Total Protein Albumin Prealbumin Triglycerides Cholesterol LDL Cholesterol Direct HDL Cholesterol Urine pH Urine WBC (Auto) Urine Creatinine Urine Total Protein Fluid Total Protein Vancomycin Trough Rheumatoid Factor Complement C4 Miscellaneous Test Crossmatch 11/30/16 11/30/16 11/30/16 05:45 11:10 17:26 WBC RBC Hgb Hct MCV MCH MCHC RDW Plt Count Lymph % (Auto) [place] % (Auto) Lymph # [place] # Baso # Seg Neutrophils % Seg Neuts % (Manual) Lymphocytes % (Manual) Monocytes % (Manual) Eosinophils % (Manual) Basophils % (Manual) Nucleated RBC % Seg Neutrophils # Seg Neutrophils # Man Lymphocytes # (Manual) Monocytes # (Manual) Eosinophils # (Manual) Basophils # (Manual) PT INR Fibrinogen dRVVT Confirm Interp Factor V Activity POC ABG pH POC ABG pCO2 POC ABG pO2 ABG pO2 ABG HCO3 ABG Base Excess ABG Hemoglobin Oxyhemoglobin Sodium Potassium Chloride Carbon Dioxide BUN 45 H Creatinine 1.6 H Glucose 131 H POC Glucose 146 H 134 H Lactic Acid Calcium Phosphorus Magnesium Direct Bilirubin AST ALT Alkaline Phosphatase Lactate Dehydrogenase Troponin T C-Reactive Protein Total Protein Albumin Prealbumin Triglycerides Cholesterol LDL Cholesterol Direct HDL Cholesterol Urine pH Urine WBC (Auto) Urine Creatinine Urine Total Protein Fluid Total Protein Vancomycin Trough Rheumatoid Factor Complement C4 Miscellaneous Test Crossmatch 11/30/16 12/01/16 12/01/16 23:35 00:06 03:35 WBC RBC Hgb Hct MCV MCH MCHC RDW Plt Count Lymph % (Auto) [place] % (Auto) Lymph # [place] # Baso # Seg Neutrophils % Seg Neuts % (Manual) Lymphocytes % (Manual) Monocytes % (Manual) Eosinophils % (Manual) Basophils % (Manual) Nucleated RBC % Seg Neutrophils # Seg Neutrophils # Man Lymphocytes # (Manual) Monocytes # (Manual) Eosinophils # (Manual) Basophils # (Manual) PT INR Fibrinogen dRVVT Confirm Interp Factor V Activity POC ABG pH POC ABG pCO2 POC ABG pO2 ABG pO2 ABG HCO3 ABG Base Excess ABG Hemoglobin 6.9 L Oxyhemoglobin Sodium Potassium Chloride Carbon Dioxide BUN 58 H Creatinine 1.8 H Glucose 146 H POC Glucose 151 H Lactic Acid Calcium Phosphorus Magnesium Direct Bilirubin AST ALT Alkaline Phosphatase Lactate Dehydrogenase Troponin T C-Reactive Protein Total Protein Albumin Prealbumin Triglycerides Cholesterol LDL Cholesterol Direct HDL Cholesterol Urine pH Urine WBC (Auto) Urine Creatinine Urine Total Protein Fluid Total Protein Vancomycin Trough Rheumatoid Factor Complement C4 Miscellaneous Test Crossmatch 12/01/16 12/01/16 12/01/16 03:35 05:47 11:52 WBC 12.3 H RBC 2.82 L Hgb 7.8 L Hct 23.7 L MCV MCH MCHC RDW 16.7 H Plt Count Lymph % (Auto) [place] % (Auto) 9.8 H Lymph # [place] # 1.2 H Baso # Seg Neutrophils % Seg Neuts % (Manual) Lymphocytes % (Manual) Monocytes % (Manual) Eosinophils % (Manual) Basophils % (Manual) Nucleated RBC % Seg Neutrophils # 8.4 H Seg Neutrophils # Man Lymphocytes # (Manual) Monocytes # (Manual) Eosinophils # (Manual) Basophils # (Manual) PT INR Fibrinogen dRVVT Confirm Interp Factor V Activity POC ABG pH POC ABG pCO2 POC ABG pO2 ABG pO2 ABG HCO3 ABG Base Excess ABG Hemoglobin Oxyhemoglobin Sodium Potassium Chloride Carbon Dioxide BUN Creatinine Glucose POC Glucose 152 H 152 H Lactic Acid Calcium Phosphorus Magnesium Direct Bilirubin AST ALT Alkaline Phosphatase Lactate Dehydrogenase Troponin T C-Reactive Protein Total Protein Albumin Prealbumin Triglycerides Cholesterol LDL Cholesterol Direct HDL Cholesterol Urine pH Urine WBC (Auto) Urine Creatinine Urine Total Protein Fluid Total Protein Vancomycin Trough Rheumatoid Factor Complement C4 Miscellaneous Test Crossmatch 12/01/16 12/01/16 12/02/16 17:40 23:41 05:00 WBC RBC Hgb Hct MCV MCH MCHC RDW Plt Count Lymph % (Auto) [place] % (Auto) Lymph # [place] # Baso # Seg Neutrophils % Seg Neuts % (Manual) Lymphocytes % (Manual) Monocytes % (Manual) Eosinophils % (Manual) Basophils % (Manual) Nucleated RBC % Seg Neutrophils # Seg Neutrophils # Man Lymphocytes # (Manual) Monocytes # (Manual) Eosinophils # (Manual) Basophils # (Manual) PT INR Fibrinogen dRVVT Confirm Interp Factor V Activity POC ABG pH POC ABG pCO2 POC ABG pO2 ABG pO2 ABG HCO3 ABG Base Excess ABG Hemoglobin Oxyhemoglobin Sodium Potassium Chloride Carbon Dioxide BUN 45 H Creatinine Glucose 115 H POC Glucose 140 H 144 H Lactic Acid Calcium Phosphorus Magnesium Direct Bilirubin AST ALT Alkaline Phosphatase Lactate Dehydrogenase Troponin T C-Reactive Protein Total Protein Albumin Prealbumin Triglycerides Cholesterol LDL Cholesterol Direct HDL Cholesterol Urine pH Urine WBC (Auto) Urine Creatinine Urine Total Protein Fluid Total Protein Vancomycin Trough Rheumatoid Factor Complement C4 Miscellaneous Test Crossmatch 12/02/16 12/02/16 12/02/16 05:31 11:20 17:38 WBC RBC Hgb Hct MCV MCH MCHC RDW Plt Count Lymph % (Auto) [place] % (Auto) Lymph # [place] # Baso # Seg Neutrophils % Seg Neuts % (Manual) Lymphocytes % (Manual) Monocytes % (Manual) Eosinophils % (Manual) Basophils % (Manual) Nucleated RBC % Seg Neutrophils # Seg Neutrophils # Man Lymphocytes # (Manual) Monocytes # (Manual) Eosinophils # (Manual) Basophils # (Manual) PT INR Fibrinogen dRVVT Confirm Interp Factor V Activity POC ABG pH POC ABG pCO2 POC ABG pO2 ABG pO2 ABG HCO3 ABG Base Excess ABG Hemoglobin Oxyhemoglobin Sodium Potassium Chloride Carbon Dioxide BUN Creatinine Glucose POC Glucose 136 H 177 H 139 H Lactic Acid Calcium Phosphorus Magnesium Direct Bilirubin AST ALT Alkaline Phosphatase Lactate Dehydrogenase Troponin T C-Reactive Protein Total Protein Albumin Prealbumin Triglycerides Cholesterol LDL Cholesterol Direct HDL Cholesterol Urine pH Urine WBC (Auto) Urine Creatinine Urine Total Protein Fluid Total Protein Vancomycin Trough Rheumatoid Factor Complement C4 Miscellaneous Test Crossmatch 12/02/16 12/03/16 12/03/16 23:43 04:00 04:00 WBC 20.4 H RBC 2.74 L Hgb 7.4 L Hct 23.6 L MCV MCH 27 L MCHC RDW 17.1 H Plt Count Lymph % (Auto) [place] % (Auto) Lymph # [place] # Baso # Seg Neutrophils % Seg Neuts % (Manual) 31.0 L Lymphocytes % (Manual) Monocytes % (Manual) Eosinophils % (Manual) Basophils % (Manual) Nucleated RBC % Seg Neutrophils # Seg Neutrophils # Man Lymphocytes # (Manual) Monocytes # (Manual) Eosinophils # (Manual) Basophils # (Manual) PT INR Fibrinogen dRVVT Confirm Interp Factor V Activity POC ABG pH POC ABG pCO2 POC ABG pO2 ABG pO2 ABG HCO3 ABG Base Excess ABG Hemoglobin Oxyhemoglobin Sodium Potassium Chloride Carbon Dioxide BUN 61 H Creatinine 1.6 H Glucose 119 H POC Glucose 158 H Lactic Acid Calcium Phosphorus Magnesium Direct Bilirubin AST ALT Alkaline Phosphatase Lactate Dehydrogenase Troponin T C-Reactive Protein Total Protein Albumin Prealbumin Triglycerides Cholesterol LDL Cholesterol Direct HDL Cholesterol Urine pH Urine WBC (Auto) Urine Creatinine Urine Total Protein Fluid Total Protein Vancomycin Trough Rheumatoid Factor Complement C4 Miscellaneous Test Crossmatch 12/03/16 12/03/16 12/03/16 05:02 12:11 18:16 WBC RBC Hgb Hct MCV MCH MCHC RDW Plt Count Lymph % (Auto) [place] % (Auto) Lymph # [place] # Baso # Seg Neutrophils % Seg Neuts % (Manual) Lymphocytes % (Manual) Monocytes % (Manual) Eosinophils % (Manual) Basophils % (Manual) Nucleated RBC % Seg Neutrophils # Seg Neutrophils # Man Lymphocytes # (Manual) Monocytes # (Manual) Eosinophils # (Manual) Basophils # (Manual) PT INR Fibrinogen dRVVT Confirm Interp Factor V Activity POC ABG pH POC ABG pCO2 POC ABG pO2 ABG pO2 ABG HCO3 ABG Base Excess ABG Hemoglobin Oxyhemoglobin Sodium Potassium Chloride Carbon Dioxide BUN Creatinine Glucose POC Glucose 146 H 157 H 124 H Lactic Acid Calcium Phosphorus Magnesium Direct Bilirubin AST ALT Alkaline Phosphatase Lactate Dehydrogenase Troponin T C-Reactive Protein Total Protein Albumin Prealbumin Triglycerides Cholesterol LDL Cholesterol Direct HDL Cholesterol Urine pH Urine WBC (Auto) Urine Creatinine Urine Total Protein Fluid Total Protein Vancomycin Trough Rheumatoid Factor Complement C4 Miscellaneous Test Crossmatch 12/03/16 12/04/16 12/04/16 23:41 04:00 04:45 WBC RBC Hgb Hct MCV MCH MCHC RDW Plt Count Lymph % (Auto) [place] % (Auto) Lymph # [place] # Baso # Seg Neutrophils % Seg Neuts % (Manual) Lymphocytes % (Manual) Monocytes % (Manual) Eosinophils % (Manual) Basophils % (Manual) Nucleated RBC % Seg Neutrophils # Seg Neutrophils # Man Lymphocytes # (Manual) Monocytes # (Manual) Eosinophils # (Manual) Basophils # (Manual) PT INR Fibrinogen dRVVT Confirm Interp Factor V Activity POC ABG pH POC ABG pCO2 POC ABG pO2 ABG pO2 ABG HCO3 ABG Base Excess ABG Hemoglobin Oxyhemoglobin Sodium Potassium Chloride Carbon Dioxide BUN 76 H Creatinine 1.6 H Glucose POC Glucose 130 H 136 H Lactic Acid Calcium Phosphorus Magnesium Direct Bilirubin AST ALT Alkaline Phosphatase 155 H Lactate Dehydrogenase Troponin T C-Reactive Protein Total Protein 5.5 L Albumin 1.5 L Prealbumin Triglycerides Cholesterol LDL Cholesterol Direct HDL Cholesterol Urine pH Urine WBC (Auto) Urine Creatinine Urine Total Protein Fluid Total Protein Vancomycin Trough Rheumatoid Factor Complement C4 Miscellaneous Test Crossmatch 12/04/16 12/04/16 12/05/16 12:08 17:23 00:10 WBC RBC Hgb Hct MCV MCH MCHC RDW Plt Count Lymph % (Auto) [place] % (Auto) Lymph # [place] # Baso # Seg Neutrophils % Seg Neuts % (Manual) Lymphocytes % (Manual) Monocytes % (Manual) Eosinophils % (Manual) Basophils % (Manual) Nucleated RBC % Seg Neutrophils # Seg Neutrophils # Man Lymphocytes # (Manual) Monocytes # (Manual) Eosinophils # (Manual) Basophils # (Manual) PT INR Fibrinogen dRVVT Confirm Interp Factor V Activity POC ABG pH POC ABG pCO2 POC ABG pO2 ABG pO2 ABG HCO3 ABG Base Excess ABG Hemoglobin Oxyhemoglobin Sodium Potassium Chloride Carbon Dioxide BUN Creatinine Glucose POC Glucose 114 H 129 H 124 H Lactic Acid Calcium Phosphorus Magnesium Direct Bilirubin AST ALT Alkaline Phosphatase Lactate Dehydrogenase Troponin T C-Reactive Protein Total Protein Albumin Prealbumin Triglycerides Cholesterol LDL Cholesterol Direct HDL Cholesterol Urine pH Urine WBC (Auto) Urine Creatinine Urine Total Protein Fluid Total Protein Vancomycin Trough Rheumatoid Factor Complement C4 Miscellaneous Test Crossmatch 12/05/16 12/05/16 12/05/16 05:00 05:00 05:18 WBC RBC Hgb Hct MCV MCH MCHC RDW Plt Count Lymph % (Auto) [place] % (Auto) Lymph # [place] # Baso # Seg Neutrophils % Seg Neuts % (Manual) Lymphocytes % (Manual) Monocytes % (Manual) Eosinophils % (Manual) Basophils % (Manual) Nucleated RBC % Seg Neutrophils # Seg Neutrophils # Man Lymphocytes # (Manual) Monocytes # (Manual) Eosinophils # (Manual) Basophils # (Manual) PT INR Fibrinogen dRVVT Confirm Interp Factor V Activity POC ABG pH POC ABG pCO2 POC ABG pO2 ABG pO2 ABG HCO3 ABG Base Excess ABG Hemoglobin Oxyhemoglobin Sodium Potassium Chloride Carbon Dioxide 21 L BUN 85 H Creatinine 1.9 H Glucose 131 H POC Glucose 154 H Lactic Acid Calcium Phosphorus Magnesium Direct Bilirubin AST ALT Alkaline Phosphatase Lactate Dehydrogenase Troponin T C-Reactive Protein 19.30 H Total Protein Albumin Prealbumin Triglycerides Cholesterol LDL Cholesterol Direct HDL Cholesterol Urine pH Urine WBC (Auto) Urine Creatinine Urine Total Protein Fluid Total Protein Vancomycin Trough Rheumatoid Factor Complement C4 Miscellaneous Test Crossmatch 12/05/16 12/05/16 12/05/16 11:43 17:46 23:25 WBC RBC Hgb Hct MCV MCH MCHC RDW Plt Count Lymph % (Auto) [place] % (Auto) Lymph # [place] # Baso # Seg Neutrophils % Seg Neuts % (Manual) Lymphocytes % (Manual) Monocytes % (Manual) Eosinophils % (Manual) Basophils % (Manual) Nucleated RBC % Seg Neutrophils # Seg Neutrophils # Man Lymphocytes # (Manual) Monocytes # (Manual) Eosinophils # (Manual) Basophils # (Manual) PT INR Fibrinogen dRVVT Confirm Interp Factor V Activity POC ABG pH POC ABG pCO2 POC ABG pO2 ABG pO2 ABG HCO3 ABG Base Excess ABG Hemoglobin Oxyhemoglobin Sodium Potassium Chloride Carbon Dioxide BUN Creatinine Glucose POC Glucose 117 H 113 H 111 H Lactic Acid Calcium Phosphorus Magnesium Direct Bilirubin AST ALT Alkaline Phosphatase Lactate Dehydrogenase Troponin T C-Reactive Protein Total Protein Albumin Prealbumin Triglycerides Cholesterol LDL Cholesterol Direct HDL Cholesterol Urine pH Urine WBC (Auto) Urine Creatinine Urine Total Protein Fluid Total Protein Vancomycin Trough Rheumatoid Factor Complement C4 Miscellaneous Test Crossmatch 12/05/16 12/06/1617 Unknown 04:58 06:00 WBC RBC Hgb Hct MCV MCH MCHC RDW Plt Count Lymph % (Auto) [place] % (Auto) Lymph # [place] # Baso # Seg Neutrophils % Seg Neuts % (Manual) Lymphocytes % (Manual) Monocytes % (Manual) Eosinophils % (Manual) Basophils % (Manual) Nucleated RBC % Seg Neutrophils # Seg Neutrophils # Man Lymphocytes # (Manual) Monocytes # (Manual) Eosinophils # (Manual) Basophils # (Manual) PT INR Fibrinogen dRVVT Confirm Interp Factor V Activity POC ABG pH POC ABG pCO2 POC ABG pO2 ABG pO2 75.2 L ABG HCO3 ABG Base Excess -3.4 L ABG Hemoglobin 7.4 L Oxyhemoglobin 94.5 L Sodium Potassium Chloride Carbon Dioxide 20 L BUN 99 H Creatinine 2.1 H Glucose 126 H POC Glucose 145 H Lactic Acid Calcium Phosphorus 4.80 H Magnesium Direct Bilirubin AST ALT Alkaline Phosphatase Lactate Dehydrogenase Troponin T C-Reactive Protein Total Protein Albumin Prealbumin Triglycerides Cholesterol LDL Cholesterol Direct HDL Cholesterol Urine pH Urine WBC (Auto) Urine Creatinine Urine Total Protein Fluid Total Protein Vancomycin Trough Rheumatoid Factor Complement C4 Miscellaneous Test Crossmatch 12/06/16 12/06/16 12/06/16 06:46 11:54 17:55 WBC RBC Hgb 8.3 L Hct 26.4 L MCV MCH MCHC RDW Plt Count Lymph % (Auto) [place] % (Auto) Lymph # [place] # Baso # Seg Neutrophils % Seg Neuts % (Manual) Lymphocytes % (Manual) Monocytes % (Manual) Eosinophils % (Manual) Basophils % (Manual) Nucleated RBC % Seg Neutrophils # Seg Neutrophils # Man Lymphocytes # (Manual) Monocytes # (Manual) Eosinophils # (Manual) Basophils # (Manual) PT INR Fibrinogen dRVVT Confirm Interp Factor V Activity POC ABG pH POC ABG pCO2 POC ABG pO2 ABG pO2 ABG HCO3 ABG Base Excess ABG Hemoglobin Oxyhemoglobin Sodium Potassium Chloride Carbon Dioxide BUN Creatinine Glucose POC Glucose 126 H 157 H Lactic Acid Calcium Phosphorus Magnesium Direct Bilirubin AST ALT Alkaline Phosphatase Lactate Dehydrogenase Troponin T C-Reactive Protein Total Protein Albumin Prealbumin Triglycerides Cholesterol LDL Cholesterol Direct HDL Cholesterol Urine pH Urine WBC (Auto) Urine Creatinine Urine Total Protein Fluid Total Protein Vancomycin Trough Rheumatoid Factor Complement C4 Miscellaneous Test Crossmatch 12/06/16 12/07/16 12/07/16 23:59 05:34 06:30 WBC RBC Hgb Hct MCV MCH MCHC RDW Plt Count Lymph % (Auto) [place] % (Auto) Lymph # [place] # Baso # Seg Neutrophils % Seg Neuts % (Manual) Lymphocytes % (Manual) Monocytes % (Manual) Eosinophils % (Manual) Basophils % (Manual) Nucleated RBC % Seg Neutrophils # Seg Neutrophils # Man Lymphocytes # (Manual) Monocytes # (Manual) Eosinophils # (Manual) Basophils # (Manual) PT INR Fibrinogen dRVVT Confirm Interp Factor V Activity POC ABG pH POC ABG pCO2 POC ABG pO2 ABG pO2 ABG HCO3 ABG Base Excess ABG Hemoglobin Oxyhemoglobin Sodium Potassium Chloride Carbon Dioxide BUN 67 H Creatinine 1.4 H Glucose 126 H POC Glucose 129 H 129 H Lactic Acid Calcium Phosphorus Magnesium Direct Bilirubin AST ALT Alkaline Phosphatase Lactate Dehydrogenase Troponin T C-Reactive Protein Total Protein Albumin Prealbumin Triglycerides Cholesterol LDL Cholesterol Direct HDL Cholesterol Urine pH Urine WBC (Auto) Urine Creatinine Urine Total Protein Fluid Total Protein Vancomycin Trough Rheumatoid Factor Complement C4 Miscellaneous Test Crossmatch 12/07/16 12/07/16 12/07/16 06:30 08:00 09:45 WBC 18.8 H RBC 2.52 L Hgb 6.9 L 6.8 L Hct 21.2 L 21.1 L MCV MCH 27 L MCHC RDW 18.0 H Plt Count Lymph % (Auto) [place] % (Auto) 9.9 H Lymph # [place] # 1.9 H Baso # Seg Neutrophils % 71.8 H Seg Neuts % (Manual) Lymphocytes % (Manual) Monocytes % (Manual) Eosinophils % (Manual) Basophils % (Manual) Nucleated RBC % Seg Neutrophils # 13.5 H Seg Neutrophils # Man Lymphocytes # (Manual) Monocytes # (Manual) Eosinophils # (Manual) Basophils # (Manual) PT INR Fibrinogen dRVVT Confirm Interp Factor V Activity POC ABG pH POC ABG pCO2 POC ABG pO2 ABG pO2 ABG HCO3 ABG Base Excess ABG Hemoglobin Oxyhemoglobin Sodium Potassium Chloride Carbon Dioxide BUN Creatinine Glucose POC Glucose Lactic Acid Calcium Phosphorus Magnesium Direct Bilirubin AST ALT Alkaline Phosphatase Lactate Dehydrogenase Troponin T C-Reactive Protein Total Protein Albumin Prealbumin Triglycerides Cholesterol LDL Cholesterol Direct HDL Cholesterol Urine pH Urine WBC (Auto) Urine Creatinine Urine Total Protein Fluid Total Protein Vancomycin Trough Rheumatoid Factor Complement C4 Miscellaneous Test Crossmatch See Detail 12/07/16 12/07/16 12/07/16 11:44 18:19 23:59 WBC RBC Hgb Hct MCV MCH MCHC RDW Plt Count Lymph % (Auto) [place] % (Auto) Lymph # [place] # Baso # Seg Neutrophils % Seg Neuts % (Manual) Lymphocytes % (Manual) Monocytes % (Manual) Eosinophils % (Manual) Basophils % (Manual) Nucleated RBC % Seg Neutrophils # Seg Neutrophils # Man Lymphocytes # (Manual) Monocytes # (Manual) Eosinophils # (Manual) Basophils # (Manual) PT INR Fibrinogen dRVVT Confirm Interp Factor V Activity POC ABG pH POC ABG pCO2 POC ABG pO2 ABG pO2 ABG HCO3 ABG Base Excess ABG Hemoglobin Oxyhemoglobin Sodium Potassium Chloride Carbon Dioxide BUN Creatinine Glucose POC Glucose 137 H 138 H 133 H Lactic Acid Calcium Phosphorus Magnesium Direct Bilirubin AST ALT Alkaline Phosphatase Lactate Dehydrogenase Troponin T C-Reactive Protein Total Protein Albumin Prealbumin Triglycerides Cholesterol LDL Cholesterol Direct HDL Cholesterol Urine pH Urine WBC (Auto) Urine Creatinine Urine Total Protein Fluid Total Protein Vancomycin Trough Rheumatoid Factor Complement C4 Miscellaneous Test Crossmatch 12/08/16 12/08/16 12/08/16 05:25 05:30 05:30 WBC 23.8 H RBC 2.88 L Hgb 8.1 L Hct 24.3 L MCV MCH MCHC RDW 16.7 H Plt Count Lymph % (Auto) [place] % (Auto) Lymph # [place] # Baso # Seg Neutrophils % Seg Neuts % (Manual) 76.0 H Lymphocytes % (Manual) 9.0 L Monocytes % (Manual) 9.0 H Eosinophils % (Manual) Basophils % (Manual) Nucleated RBC % Seg Neutrophils # Seg Neutrophils # Man 18.1 H Lymphocytes # (Manual) Monocytes # (Manual) 2.1 H Eosinophils # (Manual) Basophils # (Manual) PT INR Fibrinogen dRVVT Confirm Interp Factor V Activity POC ABG pH POC ABG pCO2 POC ABG pO2 ABG pO2 ABG HCO3 ABG Base Excess ABG Hemoglobin Oxyhemoglobin Sodium Potassium Chloride Carbon Dioxide 21 L BUN 76 H Creatinine 1.6 H Glucose 133 H POC Glucose 177 H Lactic Acid Calcium Phosphorus Magnesium Direct Bilirubin AST ALT Alkaline Phosphatase Lactate Dehydrogenase Troponin T C-Reactive Protein Total Protein Albumin Prealbumin Triglycerides Cholesterol LDL Cholesterol Direct HDL Cholesterol Urine pH Urine WBC (Auto) Urine Creatinine Urine Total Protein Fluid Total Protein Vancomycin Trough Rheumatoid Factor Complement C4 Miscellaneous Test Crossmatch 12/08/16 12/08/16 12/09/16 11:45 18:00 00:00 WBC RBC Hgb Hct MCV MCH MCHC RDW Plt Count Lymph % (Auto) [place] % (Auto) Lymph # [place] # Baso # Seg Neutrophils % Seg Neuts % (Manual) Lymphocytes % (Manual) Monocytes % (Manual) Eosinophils % (Manual) Basophils % (Manual) Nucleated RBC % Seg Neutrophils # Seg Neutrophils # Man Lymphocytes # (Manual) Monocytes # (Manual) Eosinophils # (Manual) Basophils # (Manual) PT INR Fibrinogen dRVVT Confirm Interp Factor V Activity POC ABG pH POC ABG pCO2 POC ABG pO2 ABG pO2 ABG HCO3 ABG Base Excess ABG Hemoglobin Oxyhemoglobin Sodium Potassium Chloride Carbon Dioxide BUN Creatinine Glucose POC Glucose 163 H 123 H 137 H Lactic Acid Calcium Phosphorus Magnesium Direct Bilirubin AST ALT Alkaline Phosphatase Lactate Dehydrogenase Troponin T C-Reactive Protein Total Protein Albumin Prealbumin Triglycerides Cholesterol LDL Cholesterol Direct HDL Cholesterol Urine pH Urine WBC (Auto) Urine Creatinine Urine Total Protein Fluid Total Protein Vancomycin Trough Rheumatoid Factor Complement C4 Miscellaneous Test Crossmatch 12/09/16 12/09/16 12/09/16 05:34 06:00 06:00 WBC 15.5 H RBC 2.87 L Hgb 8.0 L Hct 24.2 L MCV MCH MCHC RDW 17.2 H Plt Count Lymph % (Auto) [place] % (Auto) 11.6 H Lymph # [place] # 1.8 H Baso # Seg Neutrophils % 70.8 H Seg Neuts % (Manual) Lymphocytes % (Manual) Monocytes % (Manual) Eosinophils % (Manual) Basophils % (Manual) Nucleated RBC % Seg Neutrophils # 11.0 H Seg Neutrophils # Man Lymphocytes # (Manual) Monocytes # (Manual) Eosinophils # (Manual) Basophils # (Manual) PT INR Fibrinogen dRVVT Confirm Interp Factor V Activity POC ABG pH POC ABG pCO2 POC ABG pO2 ABG pO2 ABG HCO3 ABG Base Excess ABG Hemoglobin Oxyhemoglobin Sodium Potassium Chloride Carbon Dioxide BUN 51 H Creatinine Glucose 117 H POC Glucose 136 H Lactic Acid Calcium Phosphorus Magnesium Direct Bilirubin AST ALT Alkaline Phosphatase Lactate Dehydrogenase Troponin T C-Reactive Protein Total Protein Albumin Prealbumin Triglycerides Cholesterol LDL Cholesterol Direct HDL Cholesterol Urine pH Urine WBC (Auto) Urine Creatinine Urine Total Protein Fluid Total Protein Vancomycin Trough Rheumatoid Factor Complement C4 Miscellaneous Test Crossmatch 12/09/16 12/09/16 12/09/16 12:29 17:52 23:10 WBC RBC Hgb Hct MCV MCH MCHC RDW Plt Count Lymph % (Auto) [place] % (Auto) Lymph # [place] # Baso # Seg Neutrophils % Seg Neuts % (Manual) Lymphocytes % (Manual) Monocytes % (Manual) Eosinophils % (Manual) Basophils % (Manual) Nucleated RBC % Seg Neutrophils # Seg Neutrophils # Man Lymphocytes # (Manual) Monocytes # (Manual) Eosinophils # (Manual) Basophils # (Manual) PT INR Fibrinogen dRVVT Confirm Interp Factor V Activity POC ABG pH POC ABG pCO2 POC ABG pO2 ABG pO2 ABG HCO3 ABG Base Excess ABG Hemoglobin Oxyhemoglobin Sodium Potassium Chloride Carbon Dioxide BUN Creatinine Glucose POC Glucose 139 H 140 H 129 H Lactic Acid Calcium Phosphorus Magnesium Direct Bilirubin AST ALT Alkaline Phosphatase Lactate Dehydrogenase Troponin T C-Reactive Protein Total Protein Albumin Prealbumin Triglycerides Cholesterol LDL Cholesterol Direct HDL Cholesterol Urine pH Urine WBC (Auto) Urine Creatinine Urine Total Protein Fluid Total Protein Vancomycin Trough Rheumatoid Factor Complement C4 Miscellaneous Test Crossmatch 12/10/16 12/10/16 12/10/16 05:00 05:00 06:54 WBC 15.7 H RBC 2.87 L Hgb 8.2 L Hct 24.4 L MCV MCH MCHC RDW 17.2 H Plt Count Lymph % (Auto) [place] % (Auto) 8.3 H Lymph # [place] # 1.3 H Baso # Seg Neutrophils % 72.8 H Seg Neuts % (Manual) Lymphocytes % (Manual) Monocytes % (Manual) Eosinophils % (Manual) Basophils % (Manual) Nucleated RBC % Seg Neutrophils # 11.4 H Seg Neutrophils # Man Lymphocytes # (Manual) Monocytes # (Manual) Eosinophils # (Manual) Basophils # (Manual) PT INR Fibrinogen dRVVT Confirm Interp Factor V Activity POC ABG pH POC ABG pCO2 POC ABG pO2 ABG pO2 ABG HCO3 ABG Base Excess ABG Hemoglobin Oxyhemoglobin Sodium Potassium Chloride Carbon Dioxide BUN 64 H Creatinine 1.4 H Glucose 134 H POC Glucose 154 H Lactic Acid Calcium Phosphorus Magnesium Direct Bilirubin AST ALT Alkaline Phosphatase Lactate Dehydrogenase Troponin T C-Reactive Protein Total Protein Albumin Prealbumin Triglycerides Cholesterol LDL Cholesterol Direct HDL Cholesterol Urine pH Urine WBC (Auto) Urine Creatinine Urine Total Protein Fluid Total Protein Vancomycin Trough Rheumatoid Factor Complement C4 Miscellaneous Test Crossmatch 12/10/16 12/10/16 12/10/16 11:58 17:29 23:52 WBC RBC Hgb Hct MCV MCH MCHC RDW Plt Count Lymph % (Auto) [place] % (Auto) Lymph # [place] # Baso # Seg Neutrophils % Seg Neuts % (Manual) Lymphocytes % (Manual) Monocytes % (Manual) Eosinophils % (Manual) Basophils % (Manual) Nucleated RBC % Seg Neutrophils # Seg Neutrophils # Man Lymphocytes # (Manual) Monocytes # (Manual) Eosinophils # (Manual) Basophils # (Manual) PT INR Fibrinogen dRVVT Confirm Interp Factor V Activity POC ABG pH POC ABG pCO2 POC ABG pO2 ABG pO2 ABG HCO3 ABG Base Excess ABG Hemoglobin Oxyhemoglobin Sodium Potassium Chloride Carbon Dioxide BUN Creatinine Glucose POC Glucose 144 H 163 H 125 H Lactic Acid Calcium Phosphorus Magnesium Direct Bilirubin AST ALT Alkaline Phosphatase Lactate Dehydrogenase Troponin T C-Reactive Protein Total Protein Albumin Prealbumin Triglycerides Cholesterol LDL Cholesterol Direct HDL Cholesterol Urine pH Urine WBC (Auto) Urine Creatinine Urine Total Protein Fluid Total Protein Vancomycin Trough Rheumatoid Factor Complement C4 Miscellaneous Test Crossmatch 12/11/16 12/11/16 12/11/16 05:38 06:30 06:30 WBC 14.4 H RBC 2.76 L Hgb 7.7 L Hct 23.4 L MCV MCH MCHC RDW 17.2 H Plt Count Lymph % (Auto) [place] % (Auto) 8.8 H Lymph # [place] # 1.3 H Baso # Seg Neutrophils % 72.5 H Seg Neuts % (Manual) Lymphocytes % (Manual) Monocytes % (Manual) Eosinophils % (Manual) Basophils % (Manual) Nucleated RBC % Seg Neutrophils # 10.5 H Seg Neutrophils # Man Lymphocytes # (Manual) Monocytes # (Manual) Eosinophils # (Manual) Basophils # (Manual) PT INR Fibrinogen dRVVT Confirm Interp Factor V Activity POC ABG pH POC ABG pCO2 POC ABG pO2 ABG pO2 ABG HCO3 ABG Base Excess ABG Hemoglobin Oxyhemoglobin Sodium Potassium Chloride Carbon Dioxide BUN 43 H Creatinine Glucose 124 H POC Glucose 141 H Lactic Acid Calcium 8.3 L Phosphorus Magnesium 1.60 L Direct Bilirubin AST ALT Alkaline Phosphatase Lactate Dehydrogenase Troponin T C-Reactive Protein Total Protein Albumin Prealbumin Triglycerides Cholesterol LDL Cholesterol Direct HDL Cholesterol Urine pH Urine WBC (Auto) Urine Creatinine Urine Total Protein Fluid Total Protein Vancomycin Trough Rheumatoid Factor Complement C4 Miscellaneous Test Crossmatch 12/11/16 12/11/16 12/11/16 11:15 17:59 23:48 WBC RBC Hgb Hct MCV MCH MCHC RDW Plt Count Lymph % (Auto) [place] % (Auto) Lymph # [place] # Baso # Seg Neutrophils % Seg Neuts % (Manual) Lymphocytes % (Manual) Monocytes % (Manual) Eosinophils % (Manual) Basophils % (Manual) Nucleated RBC % Seg Neutrophils # Seg Neutrophils # Man Lymphocytes # (Manual) Monocytes # (Manual) Eosinophils # (Manual) Basophils # (Manual) PT INR Fibrinogen dRVVT Confirm Interp Factor V Activity POC ABG pH POC ABG pCO2 POC ABG pO2 ABG pO2 ABG HCO3 ABG Base Excess ABG Hemoglobin Oxyhemoglobin Sodium Potassium Chloride Carbon Dioxide BUN Creatinine Glucose POC Glucose 188 H 106 H 119 H Lactic Acid Calcium Phosphorus Magnesium Direct Bilirubin AST ALT Alkaline Phosphatase Lactate Dehydrogenase Troponin T C-Reactive Protein Total Protein Albumin Prealbumin Triglycerides Cholesterol LDL Cholesterol Direct HDL Cholesterol Urine pH Urine WBC (Auto) Urine Creatinine Urine Total Protein Fluid Total Protein Vancomycin Trough Rheumatoid Factor Complement C4 Miscellaneous Test Crossmatch 12/12/16 12/12/16 12/12/16 05:00 06:01 12:20 WBC 16.7 H RBC 2.87 L Hgb 8.0 L Hct 24.2 L MCV MCH MCHC RDW 17.6 H Plt Count Lymph % (Auto) [place] % (Auto) Lymph # [place] # 1.2 H Baso # Seg Neutrophils % 75.3 H Seg Neuts % (Manual) Lymphocytes % (Manual) Monocytes % (Manual) Eosinophils % (Manual) Basophils % (Manual) Nucleated RBC % Seg Neutrophils # 12.6 H Seg Neutrophils # Man Lymphocytes # (Manual) Monocytes # (Manual) Eosinophils # (Manual) Basophils # (Manual) PT INR Fibrinogen dRVVT Confirm Interp Factor V Activity POC ABG pH POC ABG pCO2 POC ABG pO2 ABG pO2 ABG HCO3 ABG Base Excess ABG Hemoglobin Oxyhemoglobin Sodium Potassium Chloride Carbon Dioxide BUN Creatinine Glucose POC Glucose 134 H 149 H Lactic Acid Calcium Phosphorus Magnesium Direct Bilirubin AST ALT Alkaline Phosphatase Lactate Dehydrogenase Troponin T C-Reactive Protein Total Protein Albumin Prealbumin Triglycerides Cholesterol LDL Cholesterol Direct HDL Cholesterol Urine pH Urine WBC (Auto) Urine Creatinine Urine Total Protein Fluid Total Protein Vancomycin Trough Rheumatoid Factor Complement C4 Miscellaneous Test Crossmatch 12/12/16 12/12/16 12/12/16 17:38 23:01 Unknown WBC RBC Hgb Hct MCV MCH MCHC RDW Plt Count Lymph % (Auto) [place] % (Auto) Lymph # [place] # Baso # Seg Neutrophils % Seg Neuts % (Manual) Lymphocytes % (Manual) Monocytes % (Manual) Eosinophils % (Manual) Basophils % (Manual) Nucleated RBC % Seg Neutrophils # Seg Neutrophils # Man Lymphocytes # (Manual) Monocytes # (Manual) Eosinophils # (Manual) Basophils # (Manual) PT INR Fibrinogen dRVVT Confirm Interp Factor V Activity POC ABG pH POC ABG pCO2 POC ABG pO2 ABG pO2 ABG HCO3 ABG Base Excess ABG Hemoglobin Oxyhemoglobin Sodium Potassium Chloride Carbon Dioxide BUN 60 H Creatinine 1.3 H Glucose 126 H POC Glucose 127 H 144 H Lactic Acid Calcium Phosphorus Magnesium Direct Bilirubin AST ALT Alkaline Phosphatase Lactate Dehydrogenase Troponin T C-Reactive Protein Total Protein Albumin Prealbumin Triglycerides Cholesterol LDL Cholesterol Direct HDL Cholesterol Urine pH Urine WBC (Auto) Urine Creatinine Urine Total Protein Fluid Total Protein Vancomycin Trough Rheumatoid Factor Complement C4 Miscellaneous Test Crossmatch 12/13/16 12/13/16 12/13/16 04:00 04:00 05:19 WBC 18.7 H RBC 2.89 L Hgb 8.3 L Hct 24.6 L MCV MCH MCHC RDW 17.5 H Plt Count Lymph % (Auto) [place] % (Auto) Lymph # [place] # 1.3 H Baso # Seg Neutrophils % 71.5 H Seg Neuts % (Manual) Lymphocytes % (Manual) Monocytes % (Manual) Eosinophils % (Manual) Basophils % (Manual) Nucleated RBC % Seg Neutrophils # 13.4 H Seg Neutrophils # Man Lymphocytes # (Manual) Monocytes # (Manual) Eosinophils # (Manual) Basophils # (Manual) PT INR Fibrinogen dRVVT Confirm Interp Factor V Activity POC ABG pH POC ABG pCO2 POC ABG pO2 ABG pO2 ABG HCO3 ABG Base Excess ABG Hemoglobin Oxyhemoglobin Sodium Potassium Chloride Carbon Dioxide BUN 73 H Creatinine 1.5 H Glucose 141 H POC Glucose 171 H Lactic Acid Calcium Phosphorus Magnesium Direct Bilirubin AST ALT Alkaline Phosphatase Lactate Dehydrogenase Troponin T C-Reactive Protein Total Protein Albumin Prealbumin Triglycerides Cholesterol LDL Cholesterol Direct HDL Cholesterol Urine pH Urine WBC (Auto) Urine Creatinine Urine Total Protein Fluid Total Protein Vancomycin Trough Rheumatoid Factor Complement C4 Miscellaneous Test Crossmatch 12/13/16 12/13/16 12/14/16 12:28 16:48 00:01 WBC RBC Hgb Hct MCV MCH MCHC RDW Plt Count Lymph % (Auto) [place] % (Auto) Lymph # [place] # Baso # Seg Neutrophils % Seg Neuts % (Manual) Lymphocytes % (Manual) Monocytes % (Manual) Eosinophils % (Manual) Basophils % (Manual) Nucleated RBC % Seg Neutrophils # Seg Neutrophils # Man Lymphocytes # (Manual) Monocytes # (Manual) Eosinophils # (Manual) Basophils # (Manual) PT INR Fibrinogen dRVVT Confirm Interp Factor V Activity POC ABG pH POC ABG pCO2 POC ABG pO2 ABG pO2 ABG HCO3 ABG Base Excess ABG Hemoglobin Oxyhemoglobin Sodium Potassium Chloride Carbon Dioxide BUN Creatinine Glucose POC Glucose 206 H 173 H 139 H Lactic Acid Calcium Phosphorus Magnesium Direct Bilirubin AST ALT Alkaline Phosphatase Lactate Dehydrogenase Troponin T C-Reactive Protein Total Protein Albumin Prealbumin Triglycerides Cholesterol LDL Cholesterol Direct HDL Cholesterol Urine pH Urine WBC (Auto) Urine Creatinine Urine Total Protein Fluid Total Protein Vancomycin Trough Rheumatoid Factor Complement C4 Miscellaneous Test Crossmatch 12/14/16 12/14/16 12/14/16 05:16 06:10 11:17 WBC RBC Hgb Hct MCV MCH MCHC RDW Plt Count Lymph % (Auto) [place] % (Auto) Lymph # [place] # Baso # Seg Neutrophils % Seg Neuts % (Manual) Lymphocytes % (Manual) Monocytes % (Manual) Eosinophils % (Manual) Basophils % (Manual) Nucleated RBC % Seg Neutrophils # Seg Neutrophils # Man Lymphocytes # (Manual) Monocytes # (Manual) Eosinophils # (Manual) Basophils # (Manual) PT INR Fibrinogen dRVVT Confirm Interp Factor V Activity POC ABG pH POC ABG pCO2 POC ABG pO2 ABG pO2 ABG HCO3 ABG Base Excess ABG Hemoglobin Oxyhemoglobin Sodium Potassium Chloride Carbon Dioxide BUN 57 H Creatinine 1.4 H Glucose 135 H POC Glucose 158 H 137 H Lactic Acid Calcium Phosphorus Magnesium Direct Bilirubin AST ALT Alkaline Phosphatase Lactate Dehydrogenase Troponin T C-Reactive Protein Total Protein Albumin Prealbumin Triglycerides Cholesterol LDL Cholesterol Direct HDL Cholesterol Urine pH Urine WBC (Auto) Urine Creatinine Urine Total Protein Fluid Total Protein Vancomycin Trough Rheumatoid Factor Complement C4 Miscellaneous Test Crossmatch 12/14/16 12/14/16 12/15/16 17:52 23:27 04:00 WBC RBC Hgb Hct MCV MCH MCHC RDW Plt Count Lymph % (Auto) [place] % (Auto) Lymph # [place] # Baso # Seg Neutrophils % Seg Neuts % (Manual) Lymphocytes % (Manual) Monocytes % (Manual) Eosinophils % (Manual) Basophils % (Manual) Nucleated RBC % Seg Neutrophils # Seg Neutrophils # Man Lymphocytes # (Manual) Monocytes # (Manual) Eosinophils # (Manual) Basophils # (Manual) PT INR Fibrinogen dRVVT Confirm Interp Factor V Activity POC ABG pH POC ABG pCO2 POC ABG pO2 ABG pO2 ABG HCO3 ABG Base Excess ABG Hemoglobin Oxyhemoglobin Sodium Potassium Chloride 97.9 L Carbon Dioxide BUN 75 H Creatinine 1.6 H Glucose 122 H POC Glucose 149 H 163 H Lactic Acid Calcium Phosphorus 5.20 H Magnesium Direct Bilirubin AST ALT Alkaline Phosphatase Lactate Dehydrogenase Troponin T C-Reactive Protein Total Protein Albumin Prealbumin Triglycerides Cholesterol LDL Cholesterol Direct HDL Cholesterol Urine pH Urine WBC (Auto) Urine Creatinine Urine Total Protein Fluid Total Protein Vancomycin Trough Rheumatoid Factor Complement C4 Miscellaneous Test Crossmatch 12/15/16 12/15/16 12/15/16 05:50 11:24 17:01 WBC RBC Hgb Hct MCV MCH MCHC RDW Plt Count Lymph % (Auto) [place] % (Auto) Lymph # [place] # Baso # Seg Neutrophils % Seg Neuts % (Manual) Lymphocytes % (Manual) Monocytes % (Manual) Eosinophils % (Manual) Basophils % (Manual) Nucleated RBC % Seg Neutrophils # Seg Neutrophils # Man Lymphocytes # (Manual) Monocytes # (Manual) Eosinophils # (Manual) Basophils # (Manual) PT INR Fibrinogen dRVVT Confirm Interp Factor V Activity POC ABG pH POC ABG pCO2 POC ABG pO2 ABG pO2 ABG HCO3 ABG Base Excess ABG Hemoglobin Oxyhemoglobin Sodium Potassium Chloride Carbon Dioxide BUN Creatinine Glucose POC Glucose 150 H 146 H 167 H Lactic Acid Calcium Phosphorus Magnesium Direct Bilirubin AST ALT Alkaline Phosphatase Lactate Dehydrogenase Troponin T C-Reactive Protein Total Protein Albumin Prealbumin Triglycerides Cholesterol LDL Cholesterol Direct HDL Cholesterol Urine pH Urine WBC (Auto) Urine Creatinine Urine Total Protein Fluid Total Protein Vancomycin Trough Rheumatoid Factor Complement C4 Miscellaneous Test Crossmatch 12/15/16 12/16/16 12/16/16 23:34 05:25 11:24 WBC RBC Hgb Hct MCV MCH MCHC RDW Plt Count Lymph % (Auto) [place] % (Auto) Lymph # [place] # Baso # Seg Neutrophils % Seg Neuts % (Manual) Lymphocytes % (Manual) Monocytes % (Manual) Eosinophils % (Manual) Basophils % (Manual) Nucleated RBC % Seg Neutrophils # Seg Neutrophils # Man Lymphocytes # (Manual) Monocytes # (Manual) Eosinophils # (Manual) Basophils # (Manual) PT INR Fibrinogen dRVVT Confirm Interp Factor V Activity POC ABG pH POC ABG pCO2 POC ABG pO2 ABG pO2 ABG HCO3 ABG Base Excess ABG Hemoglobin Oxyhemoglobin Sodium Potassium Chloride Carbon Dioxide BUN Creatinine Glucose POC Glucose 127 H 139 H 165 H Lactic Acid Calcium Phosphorus Magnesium Direct Bilirubin AST ALT Alkaline Phosphatase Lactate Dehydrogenase Troponin T C-Reactive Protein Total Protein Albumin Prealbumin Triglycerides Cholesterol LDL Cholesterol Direct HDL Cholesterol Urine pH Urine WBC (Auto) Urine Creatinine Urine Total Protein Fluid Total Protein Vancomycin Trough Rheumatoid Factor Complement C4 Miscellaneous Test Crossmatch 12/16/16 12/16/16 12/16/16 15:30 16:25 17:31 WBC 17.8 H RBC 2.38 L Hgb 6.4 L Hct 20.3 L MCV MCH 27 L MCHC RDW 17.4 H Plt Count Lymph % (Auto) [place] % (Auto) Lymph # [place] # Baso # Seg Neutrophils % Seg Neuts % (Manual) Lymphocytes % (Manual) Monocytes % (Manual) 10.0 H Eosinophils % (Manual) Basophils % (Manual) Nucleated RBC % Seg Neutrophils # Seg Neutrophils # Man 8.5 H Lymphocytes # (Manual) Monocytes # (Manual) 1.8 H Eosinophils # (Manual) Basophils # (Manual) PT INR Fibrinogen dRVVT Confirm Interp Factor V Activity POC ABG pH POC ABG pCO2 POC ABG pO2 ABG pO2 ABG HCO3 ABG Base Excess ABG Hemoglobin Oxyhemoglobin Sodium Potassium Chloride Carbon Dioxide BUN Creatinine Glucose POC Glucose 176 H Lactic Acid Calcium Phosphorus Magnesium Direct Bilirubin AST ALT Alkaline Phosphatase Lactate Dehydrogenase Troponin T C-Reactive Protein Total Protein Albumin Prealbumin Triglycerides Cholesterol LDL Cholesterol Direct HDL Cholesterol Urine pH Urine WBC (Auto) Urine Creatinine Urine Total Protein Fluid Total Protein Vancomycin Trough Rheumatoid Factor Complement C4 Miscellaneous Test Crossmatch See Detail 12/17/16 12/17/16 12/17/16 00:14 04:00 05:00 WBC 20.0 H RBC 2.99 L Hgb 8.5 L Hct 25.7 L MCV MCH MCHC RDW 17.2 H Plt Count Lymph % (Auto) [place] % (Auto) Lymph # [place] # Baso # Seg Neutrophils % Seg Neuts % (Manual) Lymphocytes % (Manual) Monocytes % (Manual) Eosinophils % (Manual) Basophils % (Manual) Nucleated RBC % Seg Neutrophils # Seg Neutrophils # Man Lymphocytes # (Manual) Monocytes # (Manual) Eosinophils # (Manual) Basophils # (Manual) PT INR Fibrinogen dRVVT Confirm Interp Factor V Activity POC ABG pH POC ABG pCO2 POC ABG pO2 ABG pO2 ABG HCO3 ABG Base Excess ABG Hemoglobin Oxyhemoglobin Sodium Potassium Chloride 97.7 L Carbon Dioxide BUN 73 H Creatinine 1.7 H Glucose 136 H POC Glucose 148 H Lactic Acid Calcium Phosphorus 2.20 L Magnesium 2.70 H Direct Bilirubin AST ALT Alkaline Phosphatase Lactate Dehydrogenase Troponin T C-Reactive Protein Total Protein Albumin Prealbumin Triglycerides Cholesterol LDL Cholesterol Direct HDL Cholesterol Urine pH Urine WBC (Auto) Urine Creatinine Urine Total Protein Fluid Total Protein Vancomycin Trough Rheumatoid Factor Complement C4 Miscellaneous Test Crossmatch 12/17/16 12/17/16 12/17/16 05:39 12:50 16:32 WBC RBC Hgb Hct MCV MCH MCHC RDW Plt Count Lymph % (Auto) [place] % (Auto) Lymph # [place] # Baso # Seg Neutrophils % Seg Neuts % (Manual) Lymphocytes % (Manual) Monocytes % (Manual) Eosinophils % (Manual) Basophils % (Manual) Nucleated RBC % Seg Neutrophils # Seg Neutrophils # Man Lymphocytes # (Manual) Monocytes # (Manual) Eosinophils # (Manual) Basophils # (Manual) PT INR Fibrinogen dRVVT Confirm Interp Factor V Activity POC ABG pH POC ABG pCO2 POC ABG pO2 ABG pO2 ABG HCO3 ABG Base Excess ABG Hemoglobin Oxyhemoglobin Sodium Potassium Chloride Carbon Dioxide BUN Creatinine Glucose POC Glucose 162 H 146 H 169 H Lactic Acid Calcium Phosphorus Magnesium Direct Bilirubin AST ALT Alkaline Phosphatase Lactate Dehydrogenase Troponin T C-Reactive Protein Total Protein Albumin Prealbumin Triglycerides Cholesterol LDL Cholesterol Direct HDL Cholesterol Urine pH Urine WBC (Auto) Urine Creatinine Urine Total Protein Fluid Total Protein Vancomycin Trough Rheumatoid Factor Complement C4 Miscellaneous Test Crossmatch 12/17/16 12/18/16 12/18/16 23:57 05:00 05:32 WBC RBC Hgb Hct MCV MCH MCHC RDW Plt Count Lymph % (Auto) [place] % (Auto) Lymph # [place] # Baso # Seg Neutrophils % Seg Neuts % (Manual) Lymphocytes % (Manual) Monocytes % (Manual) Eosinophils % (Manual) Basophils % (Manual) Nucleated RBC % Seg Neutrophils # Seg Neutrophils # Man Lymphocytes # (Manual) Monocytes # (Manual) Eosinophils # (Manual) Basophils # (Manual) PT INR Fibrinogen dRVVT Confirm Interp Factor V Activity POC ABG pH POC ABG pCO2 POC ABG pO2 ABG pO2 ABG HCO3 ABG Base Excess ABG Hemoglobin Oxyhemoglobin Sodium Potassium Chloride 97.0 L Carbon Dioxide BUN 63 H Creatinine 1.4 H Glucose 174 H POC Glucose 145 H 201 H Lactic Acid Calcium Phosphorus 1.70 L D Magnesium Direct Bilirubin AST ALT Alkaline Phosphatase 257 H Lactate Dehydrogenase Troponin T C-Reactive Protein Total Protein 5.9 L Albumin 1.8 L Prealbumin Triglycerides Cholesterol LDL Cholesterol Direct HDL Cholesterol Urine pH Urine WBC (Auto) Urine Creatinine Urine Total Protein Fluid Total Protein Vancomycin Trough Rheumatoid Factor Complement C4 Miscellaneous Test Crossmatch 12/18/16 12/18/16 12/18/16 11:43 16:52 23:52 WBC RBC Hgb Hct MCV MCH MCHC RDW Plt Count Lymph % (Auto) [place] % (Auto) Lymph # [place] # Baso # Seg Neutrophils % Seg Neuts % (Manual) Lymphocytes % (Manual) Monocytes % (Manual) Eosinophils % (Manual) Basophils % (Manual) Nucleated RBC % Seg Neutrophils # Seg Neutrophils # Man Lymphocytes # (Manual) Monocytes # (Manual) Eosinophils # (Manual) Basophils # (Manual) PT INR Fibrinogen dRVVT Confirm Interp Factor V Activity POC ABG pH POC ABG pCO2 POC ABG pO2 ABG pO2 ABG HCO3 ABG Base Excess ABG Hemoglobin Oxyhemoglobin Sodium Potassium Chloride Carbon Dioxide BUN Creatinine Glucose POC Glucose 177 H 110 H 162 H Lactic Acid Calcium Phosphorus Magnesium Direct Bilirubin AST ALT Alkaline Phosphatase Lactate Dehydrogenase Troponin T C-Reactive Protein Total Protein Albumin Prealbumin Triglycerides Cholesterol LDL Cholesterol Direct HDL Cholesterol Urine pH Urine WBC (Auto) Urine Creatinine Urine Total Protein Fluid Total Protein Vancomycin Trough Rheumatoid Factor Complement C4 Miscellaneous Test Crossmatch 12/19/16 12/19/16 12/19/16 05:02 05:24 09:30 WBC 20.1 H RBC 2.73 L Hgb 7.6 L Hct 23.6 L MCV MCH MCHC RDW 17.6 H Plt Count Lymph % (Auto) [place] % (Auto) Lymph # [place] # Baso # Seg Neutrophils % Seg Neuts % (Manual) Lymphocytes % (Manual) 13.0 L Monocytes % (Manual) Eosinophils % (Manual) Basophils % (Manual) Nucleated RBC % 1.0 H Seg Neutrophils # Seg Neutrophils # Man 12.9 H Lymphocytes # (Manual) Monocytes # (Manual) 1.4 H Eosinophils # (Manual) Basophils # (Manual) 0.2 H PT INR Fibrinogen dRVVT Confirm Interp Factor V Activity POC ABG pH POC ABG pCO2 POC ABG pO2 ABG pO2 ABG HCO3 ABG Base Excess ABG Hemoglobin Oxyhemoglobin Sodium Potassium Chloride 97.8 L Carbon Dioxide BUN 84 H Creatinine 1.6 H Glucose 133 H POC Glucose 134 H Lactic Acid Calcium Phosphorus Magnesium Direct Bilirubin AST ALT Alkaline Phosphatase Lactate Dehydrogenase Troponin T C-Reactive Protein Total Protein Albumin Prealbumin Triglycerides Cholesterol LDL Cholesterol Direct HDL Cholesterol Urine pH Urine WBC (Auto) Urine Creatinine Urine Total Protein Fluid Total Protein Vancomycin Trough Rheumatoid Factor Complement C4 Miscellaneous Test Crossmatch 12/19/16 12/19/16 12/19/16 09:36 11:12 18:29 WBC RBC Hgb Hct MCV MCH MCHC RDW Plt Count Lymph % (Auto) [place] % (Auto) Lymph # [place] # Baso # Seg Neutrophils % Seg Neuts % (Manual) Lymphocytes % (Manual) Monocytes % (Manual) Eosinophils % (Manual) Basophils % (Manual) Nucleated RBC % Seg Neutrophils # Seg Neutrophils # Man Lymphocytes # (Manual) Monocytes # (Manual) Eosinophils # (Manual) Basophils # (Manual) PT INR Fibrinogen dRVVT Confirm Interp Factor V Activity POC ABG pH 7.503 H POC ABG pCO2 30.1 L POC ABG pO2 ABG pO2 ABG HCO3 ABG Base Excess ABG Hemoglobin Oxyhemoglobin Sodium Potassium Chloride Carbon Dioxide BUN Creatinine Glucose POC Glucose 138 H 156 H Lactic Acid Calcium Phosphorus Magnesium Direct Bilirubin AST ALT Alkaline Phosphatase Lactate Dehydrogenase Troponin T C-Reactive Protein Total Protein Albumin Prealbumin Triglycerides Cholesterol LDL Cholesterol Direct HDL Cholesterol Urine pH Urine WBC (Auto) Urine Creatinine Urine Total Protein Fluid Total Protein Vancomycin Trough Rheumatoid Factor Complement C4 Miscellaneous Test Crossmatch 12/20/16 12/20/16 12/20/16 00:03 06:17 07:07 WBC RBC Hgb Hct MCV MCH MCHC RDW Plt Count Lymph % (Auto) [place] % (Auto) Lymph # [place] # Baso # Seg Neutrophils % Seg Neuts % (Manual) Lymphocytes % (Manual) Monocytes % (Manual) Eosinophils % (Manual) Basophils % (Manual) Nucleated RBC % Seg Neutrophils # Seg Neutrophils # Man Lymphocytes # (Manual) Monocytes # (Manual) Eosinophils # (Manual) Basophils # (Manual) PT INR Fibrinogen dRVVT Confirm Interp Factor V Activity POC ABG pH POC ABG pCO2 POC ABG pO2 ABG pO2 ABG HCO3 ABG Base Excess ABG Hemoglobin Oxyhemoglobin Sodium Potassium Chloride 97.1 L Carbon Dioxide 20 L BUN 97 H Creatinine 1.8 H Glucose 153 H POC Glucose 152 H 175 H Lactic Acid Calcium Phosphorus Magnesium Direct Bilirubin AST ALT Alkaline Phosphatase Lactate Dehydrogenase Troponin T C-Reactive Protein Total Protein Albumin Prealbumin Triglycerides Cholesterol LDL Cholesterol Direct HDL Cholesterol Urine pH Urine WBC (Auto) Urine Creatinine Urine Total Protein Fluid Total Protein Vancomycin Trough Rheumatoid Factor Complement C4 Miscellaneous Test Crossmatch 12/20/16 12/20/16 12/20/16 12:00 17:42 23:53 WBC RBC Hgb Hct MCV MCH MCHC RDW Plt Count Lymph % (Auto) [place] % (Auto) Lymph # [place] # Baso # Seg Neutrophils % Seg Neuts % (Manual) Lymphocytes % (Manual) Monocytes % (Manual) Eosinophils % (Manual) Basophils % (Manual) Nucleated RBC % Seg Neutrophils # Seg Neutrophils # Man Lymphocytes # (Manual) Monocytes # (Manual) Eosinophils # (Manual) Basophils # (Manual) PT INR Fibrinogen dRVVT Confirm Interp Factor V Activity POC ABG pH POC ABG pCO2 POC ABG pO2 ABG pO2 ABG HCO3 ABG Base Excess ABG Hemoglobin Oxyhemoglobin Sodium Potassium Chloride Carbon Dioxide BUN Creatinine Glucose POC Glucose 141 H 156 H 132 H Lactic Acid Calcium Phosphorus Magnesium Direct Bilirubin AST ALT Alkaline Phosphatase Lactate Dehydrogenase Troponin T C-Reactive Protein Total Protein Albumin Prealbumin Triglycerides Cholesterol LDL Cholesterol Direct HDL Cholesterol Urine pH Urine WBC (Auto) Urine Creatinine Urine Total Protein Fluid Total Protein Vancomycin Trough Rheumatoid Factor Complement C4 Miscellaneous Test Crossmatch 12/21/16 12/21/16 12/21/16 05:49 08:50 12:19 WBC RBC Hgb Hct MCV MCH MCHC RDW Plt Count Lymph % (Auto) [place] % (Auto) Lymph # [place] # Baso # Seg Neutrophils % Seg Neuts % (Manual) Lymphocytes % (Manual) Monocytes % (Manual) Eosinophils % (Manual) Basophils % (Manual) Nucleated RBC % Seg Neutrophils # Seg Neutrophils # Man Lymphocytes # (Manual) Monocytes # (Manual) Eosinophils # (Manual) Basophils # (Manual) PT INR Fibrinogen dRVVT Confirm Interp Factor V Activity POC ABG pH POC ABG pCO2 POC ABG pO2 ABG pO2 ABG HCO3 ABG Base Excess ABG Hemoglobin Oxyhemoglobin Sodium Potassium 5.2 H D Chloride Carbon Dioxide BUN 63 H Creatinine Glucose 122 H POC Glucose 132 H 136 H Lactic Acid Calcium 8.3 L Phosphorus Magnesium Direct Bilirubin AST ALT Alkaline Phosphatase Lactate Dehydrogenase Troponin T C-Reactive Protein Total Protein Albumin Prealbumin Triglycerides Cholesterol LDL Cholesterol Direct HDL Cholesterol Urine pH Urine WBC (Auto) Urine Creatinine Urine Total Protein Fluid Total Protein Vancomycin Trough Rheumatoid Factor Complement C4 Miscellaneous Test Crossmatch 12/21/16 12/21/16 12/22/16 17:22 23:58 05:49 WBC RBC Hgb Hct MCV MCH MCHC RDW Plt Count Lymph % (Auto) [place] % (Auto) Lymph # [place] # Baso # Seg Neutrophils % Seg Neuts % (Manual) Lymphocytes % (Manual) Monocytes % (Manual) Eosinophils % (Manual) Basophils % (Manual) Nucleated RBC % Seg Neutrophils # Seg Neutrophils # Man Lymphocytes # (Manual) Monocytes # (Manual) Eosinophils # (Manual) Basophils # (Manual) PT INR Fibrinogen dRVVT Confirm Interp Factor V Activity POC ABG pH POC ABG pCO2 POC ABG pO2 ABG pO2 ABG HCO3 ABG Base Excess ABG Hemoglobin Oxyhemoglobin Sodium Potassium Chloride Carbon Dioxide BUN Creatinine Glucose POC Glucose 135 H 149 H 140 H Lactic Acid Calcium Phosphorus Magnesium Direct Bilirubin AST ALT Alkaline Phosphatase Lactate Dehydrogenase Troponin T C-Reactive Protein Total Protein Albumin Prealbumin Triglycerides Cholesterol LDL Cholesterol Direct HDL Cholesterol Urine pH Urine WBC (Auto) Urine Creatinine Urine Total Protein Fluid Total Protein Vancomycin Trough Rheumatoid Factor Complement C4 Miscellaneous Test Crossmatch 12/22/16 12/22/16 12/22/16 06:10 11:17 17:31 WBC RBC Hgb Hct MCV MCH MCHC RDW Plt Count Lymph % (Auto) [place] % (Auto) Lymph # [place] # Baso # Seg Neutrophils % Seg Neuts % (Manual) Lymphocytes % (Manual) Monocytes % (Manual) Eosinophils % (Manual) Basophils % (Manual) Nucleated RBC % Seg Neutrophils # Seg Neutrophils # Man Lymphocytes # (Manual) Monocytes # (Manual) Eosinophils # (Manual) Basophils # (Manual) PT INR Fibrinogen dRVVT Confirm Interp Factor V Activity POC ABG pH POC ABG pCO2 POC ABG pO2 ABG pO2 ABG HCO3 ABG Base Excess ABG Hemoglobin Oxyhemoglobin Sodium Potassium Chloride Carbon Dioxide BUN 76 H Creatinine 1.5 H Glucose 241 H POC Glucose 193 H 148 H Lactic Acid Calcium Phosphorus Magnesium Direct Bilirubin AST ALT Alkaline Phosphatase Lactate Dehydrogenase Troponin T C-Reactive Protein Total Protein Albumin Prealbumin Triglycerides Cholesterol LDL Cholesterol Direct HDL Cholesterol Urine pH Urine WBC (Auto) Urine Creatinine Urine Total Protein Fluid Total Protein Vancomycin Trough Rheumatoid Factor Complement C4 Miscellaneous Test Crossmatch 12/22/16 12/23/16 12/23/16 23:58 05:00 05:26 WBC RBC Hgb Hct MCV MCH MCHC RDW Plt Count Lymph % (Auto) [place] % (Auto) Lymph # [place] # Baso # Seg Neutrophils % Seg Neuts % (Manual) Lymphocytes % (Manual) Monocytes % (Manual) Eosinophils % (Manual) Basophils % (Manual) Nucleated RBC % Seg Neutrophils # Seg Neutrophils # Man Lymphocytes # (Manual) Monocytes # (Manual) Eosinophils # (Manual) Basophils # (Manual) PT INR Fibrinogen dRVVT Confirm Interp Factor V Activity POC ABG pH POC ABG pCO2 POC ABG pO2 ABG pO2 ABG HCO3 ABG Base Excess ABG Hemoglobin Oxyhemoglobin Sodium Potassium Chloride Carbon Dioxide BUN 49 H Creatinine Glucose 143 H POC Glucose 165 H 154 H Lactic Acid Calcium 8.2 L Phosphorus Magnesium 1.60 L Direct Bilirubin AST ALT Alkaline Phosphatase Lactate Dehydrogenase Troponin T C-Reactive Protein Total Protein Albumin Prealbumin Triglycerides Cholesterol LDL Cholesterol Direct HDL Cholesterol Urine pH Urine WBC (Auto) Urine Creatinine Urine Total Protein Fluid Total Protein Vancomycin Trough Rheumatoid Factor Complement C4 Miscellaneous Test Crossmatch 12/23/16 12/23/16 12/24/16 12:35 17:01 00:01 WBC RBC Hgb Hct MCV MCH MCHC RDW Plt Count Lymph % (Auto) [place] % (Auto) Lymph # [place] # Baso # Seg Neutrophils % Seg Neuts % (Manual) Lymphocytes % (Manual) Monocytes % (Manual) Eosinophils % (Manual) Basophils % (Manual) Nucleated RBC % Seg Neutrophils # Seg Neutrophils # Man Lymphocytes # (Manual) Monocytes # (Manual) Eosinophils # (Manual) Basophils # (Manual) PT INR Fibrinogen dRVVT Confirm Interp Factor V Activity POC ABG pH POC ABG pCO2 POC ABG pO2 ABG pO2 ABG HCO3 ABG Base Excess ABG Hemoglobin Oxyhemoglobin Sodium Potassium Chloride Carbon Dioxide BUN Creatinine Glucose POC Glucose 164 H 149 H 135 H Lactic Acid Calcium Phosphorus Magnesium Direct Bilirubin AST ALT Alkaline Phosphatase Lactate Dehydrogenase Troponin T C-Reactive Protein Total Protein Albumin Prealbumin Triglycerides Cholesterol LDL Cholesterol Direct HDL Cholesterol Urine pH Urine WBC (Auto) Urine Creatinine Urine Total Protein Fluid Total Protein Vancomycin Trough Rheumatoid Factor Complement C4 Miscellaneous Test Crossmatch 12/24/16 12/24/16 12/24/16 05:41 07:01 11:38 WBC RBC Hgb Hct MCV MCH MCHC RDW Plt Count Lymph % (Auto) [place] % (Auto) Lymph # [place] # Baso # Seg Neutrophils % Seg Neuts % (Manual) Lymphocytes % (Manual) Monocytes % (Manual) Eosinophils % (Manual) Basophils % (Manual) Nucleated RBC % Seg Neutrophils # Seg Neutrophils # Man Lymphocytes # (Manual) Monocytes # (Manual) Eosinophils # (Manual) Basophils # (Manual) PT INR Fibrinogen dRVVT Confirm Interp Factor V Activity POC ABG pH POC ABG pCO2 POC ABG pO2 ABG pO2 ABG HCO3 ABG Base Excess ABG Hemoglobin Oxyhemoglobin Sodium Potassium Chloride Carbon Dioxide BUN 72 H Creatinine 1.3 H Glucose 130 H POC Glucose 132 H 156 H Lactic Acid Calcium 8.2 L Phosphorus Magnesium Direct Bilirubin AST ALT Alkaline Phosphatase Lactate Dehydrogenase Troponin T C-Reactive Protein Total Protein Albumin Prealbumin Triglycerides Cholesterol LDL Cholesterol Direct HDL Cholesterol Urine pH Urine WBC (Auto) Urine Creatinine Urine Total Protein Fluid Total Protein Vancomycin Trough Rheumatoid Factor Complement C4 Miscellaneous Test Crossmatch 12/24/16 12/25/16 12/25/16 17:53 00:23 05:45 WBC RBC Hgb Hct MCV MCH MCHC RDW Plt Count Lymph % (Auto) [place] % (Auto) Lymph # [place] # Baso # Seg Neutrophils % Seg Neuts % (Manual) Lymphocytes % (Manual) Monocytes % (Manual) Eosinophils % (Manual) Basophils % (Manual) Nucleated RBC % Seg Neutrophils # Seg Neutrophils # Man Lymphocytes # (Manual) Monocytes # (Manual) Eosinophils # (Manual) Basophils # (Manual) PT INR Fibrinogen dRVVT Confirm Interp Factor V Activity POC ABG pH POC ABG pCO2 POC ABG pO2 ABG pO2 ABG HCO3 ABG Base Excess ABG Hemoglobin Oxyhemoglobin Sodium 146 H Potassium Chloride Carbon Dioxide BUN 51 H Creatinine Glucose 109 H POC Glucose 169 H 117 H Lactic Acid Calcium Phosphorus Magnesium Direct Bilirubin AST ALT Alkaline Phosphatase Lactate Dehydrogenase Troponin T C-Reactive Protein Total Protein Albumin Prealbumin Triglycerides Cholesterol LDL Cholesterol Direct HDL Cholesterol Urine pH Urine WBC (Auto) Urine Creatinine Urine Total Protein Fluid Total Protein Vancomycin Trough Rheumatoid Factor Complement C4 Miscellaneous Test Crossmatch 12/25/16 12/25/16 12/25/16 06:43 11:29 17:14 WBC RBC Hgb Hct MCV MCH MCHC RDW Plt Count Lymph % (Auto) [place] % (Auto) Lymph # [place] # Baso # Seg Neutrophils % Seg Neuts % (Manual) Lymphocytes % (Manual) Monocytes % (Manual) Eosinophils % (Manual) Basophils % (Manual) Nucleated RBC % Seg Neutrophils # Seg Neutrophils # Man Lymphocytes # (Manual) Monocytes # (Manual) Eosinophils # (Manual) Basophils # (Manual) PT INR Fibrinogen dRVVT Confirm Interp Factor V Activity POC ABG pH POC ABG pCO2 POC ABG pO2 ABG pO2 ABG HCO3 ABG Base Excess ABG Hemoglobin Oxyhemoglobin Sodium Potassium Chloride Carbon Dioxide BUN Creatinine Glucose POC Glucose 117 H 128 H 120 H Lactic Acid Calcium Phosphorus Magnesium Direct Bilirubin AST ALT Alkaline Phosphatase Lactate Dehydrogenase Troponin T C-Reactive Protein Total Protein Albumin Prealbumin Triglycerides Cholesterol LDL Cholesterol Direct HDL Cholesterol Urine pH Urine WBC (Auto) Urine Creatinine Urine Total Protein Fluid Total Protein Vancomycin Trough Rheumatoid Factor Complement C4 Miscellaneous Test Crossmatch 12/25/16 12/26/16 12/26/16 23:54 05:40 05:50 WBC 16.2 H RBC 2.32 L Hgb 6.2 L Hct 20.1 L MCV MCH 27 L MCHC RDW 18.6 H Plt Count Lymph % (Auto) [place] % (Auto) Lymph # [place] # Baso # Seg Neutrophils % Seg Neuts % (Manual) Lymphocytes % (Manual) Monocytes % (Manual) Eosinophils % (Manual) Basophils % (Manual) Nucleated RBC % Seg Neutrophils # Seg Neutrophils # Man Lymphocytes # (Manual) Monocytes # (Manual) Eosinophils # (Manual) Basophils # (Manual) PT INR Fibrinogen dRVVT Confirm Interp Factor V Activity POC ABG pH POC ABG pCO2 POC ABG pO2 ABG pO2 ABG HCO3 ABG Base Excess ABG Hemoglobin Oxyhemoglobin Sodium Potassium Chloride Carbon Dioxide BUN Creatinine Glucose POC Glucose 126 H 132 H Lactic Acid Calcium Phosphorus Magnesium Direct Bilirubin AST ALT Alkaline Phosphatase Lactate Dehydrogenase Troponin T C-Reactive Protein Total Protein Albumin Prealbumin Triglycerides Cholesterol LDL Cholesterol Direct HDL Cholesterol Urine pH Urine WBC (Auto) Urine Creatinine Urine Total Protein Fluid Total Protein Vancomycin Trough Rheumatoid Factor Complement C4 Miscellaneous Test Crossmatch 12/26/16 12/26/16 12/26/16 05:50 12:17 12:33 WBC RBC Hgb Hct MCV MCH MCHC RDW Plt Count Lymph % (Auto) [place] % (Auto) Lymph # [place] # Baso # Seg Neutrophils % Seg Neuts % (Manual) Lymphocytes % (Manual) Monocytes % (Manual) Eosinophils % (Manual) Basophils % (Manual) Nucleated RBC % Seg Neutrophils # Seg Neutrophils # Man Lymphocytes # (Manual) Monocytes # (Manual) Eosinophils # (Manual) Basophils # (Manual) PT INR Fibrinogen dRVVT Confirm Interp Factor V Activity POC ABG pH POC ABG pCO2 POC ABG pO2 ABG pO2 ABG HCO3 ABG Base Excess ABG Hemoglobin Oxyhemoglobin Sodium Potassium Chloride Carbon Dioxide BUN 73 H Creatinine 1.3 H Glucose 113 H POC Glucose 117 H Lactic Acid Calcium Phosphorus Magnesium Direct Bilirubin AST ALT Alkaline Phosphatase Lactate Dehydrogenase Troponin T C-Reactive Protein Total Protein Albumin Prealbumin Triglycerides Cholesterol LDL Cholesterol Direct HDL Cholesterol Urine pH Urine WBC (Auto) Urine Creatinine Urine Total Protein Fluid Total Protein Vancomycin Trough Rheumatoid Factor Complement C4 Miscellaneous Test Crossmatch See Detail 12/26/16 12/26/16 12/27/16 20:00 23:21 05:00 WBC RBC Hgb 8.4 L Hct 26.3 L D MCV MCH MCHC RDW Plt Count Lymph % (Auto) [place] % (Auto) Lymph # [place] # Baso # Seg Neutrophils % Seg Neuts % (Manual) Lymphocytes % (Manual) Monocytes % (Manual) Eosinophils % (Manual) Basophils % (Manual) Nucleated RBC % Seg Neutrophils # Seg Neutrophils # Man Lymphocytes # (Manual) Monocytes # (Manual) Eosinophils # (Manual) Basophils # (Manual) PT INR Fibrinogen dRVVT Confirm Interp Factor V Activity POC ABG pH POC ABG pCO2 POC ABG pO2 ABG pO2 ABG HCO3 ABG Base Excess ABG Hemoglobin Oxyhemoglobin Sodium Potassium Chloride Carbon Dioxide BUN 85 H Creatinine 1.6 H Glucose 118 H POC Glucose 124 H Lactic Acid Calcium Phosphorus 4.80 H Magnesium Direct Bilirubin AST ALT Alkaline Phosphatase Lactate Dehydrogenase Troponin T C-Reactive Protein Total Protein Albumin Prealbumin Triglycerides Cholesterol LDL Cholesterol Direct HDL Cholesterol Urine pH Urine WBC (Auto) Urine Creatinine Urine Total Protein Fluid Total Protein Vancomycin Trough Rheumatoid Factor Complement C4 Miscellaneous Test Crossmatch 12/27/16 12/27/16 12/27/16 05:00 05:35 12:24 WBC RBC Hgb 7.6 L Hct 22.8 L MCV MCH MCHC RDW Plt Count Lymph % (Auto) [place] % (Auto) Lymph # [place] # Baso # Seg Neutrophils % Seg Neuts % (Manual) Lymphocytes % (Manual) Monocytes % (Manual) Eosinophils % (Manual) Basophils % (Manual) Nucleated RBC % Seg Neutrophils # Seg Neutrophils # Man Lymphocytes # (Manual) Monocytes # (Manual) Eosinophils # (Manual) Basophils # (Manual) PT INR Fibrinogen dRVVT Confirm Interp Factor V Activity POC ABG pH POC ABG pCO2 POC ABG pO2 ABG pO2 ABG HCO3 ABG Base Excess ABG Hemoglobin Oxyhemoglobin Sodium Potassium Chloride Carbon Dioxide BUN Creatinine Glucose POC Glucose 115 H 131 H Lactic Acid Calcium Phosphorus Magnesium Direct Bilirubin AST ALT Alkaline Phosphatase Lactate Dehydrogenase Troponin T C-Reactive Protein Total Protein Albumin Prealbumin Triglycerides Cholesterol LDL Cholesterol Direct HDL Cholesterol Urine pH Urine WBC (Auto) Urine Creatinine Urine Total Protein Fluid Total Protein Vancomycin Trough Rheumatoid Factor Complement C4 Miscellaneous Test Crossmatch 12/27/16 12/28/16 12/28/16 17:16 00:18 04:00 WBC RBC Hgb Hct MCV MCH MCHC RDW Plt Count Lymph % (Auto) [place] % (Auto) Lymph # [place] # Baso # Seg Neutrophils % Seg Neuts % (Manual) Lymphocytes % (Manual) Monocytes % (Manual) Eosinophils % (Manual) Basophils % (Manual) Nucleated RBC % Seg Neutrophils # Seg Neutrophils # Man Lymphocytes # (Manual) Monocytes # (Manual) Eosinophils # (Manual) Basophils # (Manual) PT INR Fibrinogen dRVVT Confirm Interp Factor V Activity POC ABG pH POC ABG pCO2 POC ABG pO2 ABG pO2 ABG HCO3 ABG Base Excess ABG Hemoglobin Oxyhemoglobin Sodium Potassium 3.5 L Chloride Carbon Dioxide BUN 57 H Creatinine Glucose 118 H POC Glucose 136 H 120 H Lactic Acid Calcium 8.3 L Phosphorus Magnesium Direct Bilirubin AST ALT Alkaline Phosphatase Lactate Dehydrogenase Troponin T C-Reactive Protein Total Protein Albumin Prealbumin Triglycerides Cholesterol LDL Cholesterol Direct HDL Cholesterol Urine pH Urine WBC (Auto) Urine Creatinine Urine Total Protein Fluid Total Protein Vancomycin Trough Rheumatoid Factor Complement C4 Miscellaneous Test Crossmatch 12/28/16 12/28/16 12/28/16 04:00 05:11 08:30 WBC 17.0 H RBC 2.58 L Hgb 7.1 L Hct 22.0 L MCV MCH MCHC RDW 17.6 H Plt Count Lymph % (Auto) 12.2 L [place] % (Auto) Lymph # [place] # 1.1 H Baso # Seg Neutrophils % 80.5 H Seg Neuts % (Manual) Lymphocytes % (Manual) Monocytes % (Manual) Eosinophils % (Manual) Basophils % (Manual) Nucleated RBC % Seg Neutrophils # 13.7 H Seg Neutrophils # Man Lymphocytes # (Manual) Monocytes # (Manual) Eosinophils # (Manual) Basophils # (Manual) PT 16.1 H INR 1.23 H Fibrinogen dRVVT Confirm Interp Factor V Activity POC ABG pH POC ABG pCO2 POC ABG pO2 ABG pO2 ABG HCO3 ABG Base Excess ABG Hemoglobin Oxyhemoglobin Sodium Potassium Chloride Carbon Dioxide BUN Creatinine Glucose POC Glucose 122 H Lactic Acid Calcium Phosphorus Magnesium Direct Bilirubin AST ALT Alkaline Phosphatase Lactate Dehydrogenase Troponin T C-Reactive Protein Total Protein Albumin Prealbumin Triglycerides Cholesterol LDL Cholesterol Direct HDL Cholesterol Urine pH Urine WBC (Auto) Urine Creatinine Urine Total Protein Fluid Total Protein Vancomycin Trough Rheumatoid Factor Complement C4 Miscellaneous Test Crossmatch 12/28/16 12/28/16 12/28/16 12:27 16:32 23:46 WBC RBC Hgb Hct MCV MCH MCHC RDW Plt Count Lymph % (Auto) [place] % (Auto) Lymph # [place] # Baso # Seg Neutrophils % Seg Neuts % (Manual) Lymphocytes % (Manual) Monocytes % (Manual) Eosinophils % (Manual) Basophils % (Manual) Nucleated RBC % Seg Neutrophils # Seg Neutrophils # Man Lymphocytes # (Manual) Monocytes # (Manual) Eosinophils # (Manual) Basophils # (Manual) PT INR Fibrinogen dRVVT Confirm Interp Factor V Activity POC ABG pH POC ABG pCO2 POC ABG pO2 ABG pO2 ABG HCO3 ABG Base Excess ABG Hemoglobin Oxyhemoglobin Sodium Potassium Chloride Carbon Dioxide BUN Creatinine Glucose POC Glucose 127 H 117 H 108 H Lactic Acid Calcium Phosphorus Magnesium Direct Bilirubin AST ALT Alkaline Phosphatase Lactate Dehydrogenase Troponin T C-Reactive Protein Total Protein Albumin Prealbumin Triglycerides Cholesterol LDL Cholesterol Direct HDL Cholesterol Urine pH Urine WBC (Auto) Urine Creatinine Urine Total Protein Fluid Total Protein Vancomycin Trough Rheumatoid Factor Complement C4 Miscellaneous Test Crossmatch 12/29/16 12/29/16 12/29/16 05:15 05:15 05:32 WBC RBC Hgb Hct MCV MCH MCHC RDW Plt Count Lymph % (Auto) [place] % (Auto) Lymph # [place] # Baso # Seg Neutrophils % Seg Neuts % (Manual) Lymphocytes % (Manual) Monocytes % (Manual) Eosinophils % (Manual) Basophils % (Manual) Nucleated RBC % Seg Neutrophils # Seg Neutrophils # Man Lymphocytes # (Manual) Monocytes # (Manual) Eosinophils # (Manual) Basophils # (Manual) PT INR Fibrinogen dRVVT Confirm Interp Factor V Activity POC ABG pH POC ABG pCO2 POC ABG pO2 ABG pO2 ABG HCO3 ABG Base Excess ABG Hemoglobin Oxyhemoglobin Sodium Potassium Chloride Carbon Dioxide BUN 74 H Creatinine 1.6 H Glucose 111 H POC Glucose 123 H Lactic Acid Calcium Phosphorus Magnesium Direct Bilirubin AST ALT Alkaline Phosphatase Lactate Dehydrogenase Troponin T C-Reactive Protein Total Protein Albumin Prealbumin 0.110 L Triglycerides Cholesterol LDL Cholesterol Direct HDL Cholesterol Urine pH Urine WBC (Auto) Urine Creatinine Urine Total Protein Fluid Total Protein Vancomycin Trough Rheumatoid Factor Complement C4 Miscellaneous Test Crossmatch 12/29/16 12/29/16 12/29/16 11:43 13:45 14:00 WBC 13.8 H RBC 2.26 L Hgb 6.3 L Hct 20.4 L MCV MCH MCHC RDW 18.3 H Plt Count Lymph % (Auto) [place] % (Auto) Lymph # [place] # 0.9 H Baso # Seg Neutrophils % 78.6 H Seg Neuts % (Manual) Lymphocytes % (Manual) Monocytes % (Manual) Eosinophils % (Manual) Basophils % (Manual) Nucleated RBC % Seg Neutrophils # 10.8 H Seg Neutrophils # Man Lymphocytes # (Manual) Monocytes # (Manual) Eosinophils # (Manual) Basophils # (Manual) PT INR Fibrinogen dRVVT Confirm Interp Factor V Activity POC ABG pH POC ABG pCO2 POC ABG pO2 ABG pO2 ABG HCO3 ABG Base Excess ABG Hemoglobin Oxyhemoglobin Sodium Potassium Chloride Carbon Dioxide BUN Creatinine Glucose POC Glucose 133 H Lactic Acid Calcium Phosphorus Magnesium Direct Bilirubin AST ALT Alkaline Phosphatase Lactate Dehydrogenase Troponin T C-Reactive Protein Total Protein Albumin Prealbumin Triglycerides Cholesterol LDL Cholesterol Direct HDL Cholesterol Urine pH Urine WBC (Auto) Urine Creatinine Urine Total Protein Fluid Total Protein Vancomycin Trough Rheumatoid Factor Complement C4 Miscellaneous Test Crossmatch See Detail 12/29/16 12/29/16 12/29/16 17:03 23:15 23:22 WBC RBC Hgb 7.3 L Hct 22.3 L MCV MCH MCHC RDW Plt Count Lymph % (Auto) [place] % (Auto) Lymph # [place] # Baso # Seg Neutrophils % Seg Neuts % (Manual) Lymphocytes % (Manual) Monocytes % (Manual) Eosinophils % (Manual) Basophils % (Manual) Nucleated RBC % Seg Neutrophils # Seg Neutrophils # Man Lymphocytes # (Manual) Monocytes # (Manual) Eosinophils # (Manual) Basophils # (Manual) PT INR Fibrinogen dRVVT Confirm Interp Factor V Activity POC ABG pH POC ABG pCO2 POC ABG pO2 ABG pO2 ABG HCO3 ABG Base Excess ABG Hemoglobin Oxyhemoglobin Sodium Potassium Chloride Carbon Dioxide BUN Creatinine Glucose POC Glucose 139 H 120 H Lactic Acid Calcium Phosphorus Magnesium Direct Bilirubin AST ALT Alkaline Phosphatase Lactate Dehydrogenase Troponin T C-Reactive Protein Total Protein Albumin Prealbumin Triglycerides Cholesterol LDL Cholesterol Direct HDL Cholesterol Urine pH Urine WBC (Auto) Urine Creatinine Urine Total Protein Fluid Total Protein Vancomycin Trough Rheumatoid Factor Complement C4 Miscellaneous Test Crossmatch 12/30/16 12/30/16 12/30/16 04:20 04:20 05:43 WBC 15.6 H RBC 2.81 L Hgb 8.0 L Hct 24.0 L MCV MCH MCHC RDW 16.9 H Plt Count Lymph % (Auto) [place] % (Auto) Lymph # [place] # 1.0 H Baso # Seg Neutrophils % 76.2 H Seg Neuts % (Manual) Lymphocytes % (Manual) Monocytes % (Manual) Eosinophils % (Manual) Basophils % (Manual) Nucleated RBC % Seg Neutrophils # 11.9 H Seg Neutrophils # Man Lymphocytes # (Manual) Monocytes # (Manual) Eosinophils # (Manual) Basophils # (Manual) PT INR Fibrinogen dRVVT Confirm Interp Factor V Activity POC ABG pH POC ABG pCO2 POC ABG pO2 ABG pO2 ABG HCO3 ABG Base Excess ABG Hemoglobin Oxyhemoglobin Sodium Potassium Chloride Carbon Dioxide BUN 87 H Creatinine 1.8 H Glucose 119 H POC Glucose 115 H Lactic Acid Calcium Phosphorus Magnesium Direct Bilirubin AST ALT Alkaline Phosphatase Lactate Dehydrogenase Troponin T C-Reactive Protein Total Protein Albumin Prealbumin Triglycerides Cholesterol LDL Cholesterol Direct HDL Cholesterol Urine pH Urine WBC (Auto) Urine Creatinine Urine Total Protein Fluid Total Protein Vancomycin Trough Rheumatoid Factor Complement C4 Miscellaneous Test Crossmatch 12/30/16 12/31/16 12/31/16 23:21 04:00 05:11 WBC RBC Hgb Hct MCV MCH MCHC RDW Plt Count Lymph % (Auto) [place] % (Auto) Lymph # [place] # Baso # Seg Neutrophils % Seg Neuts % (Manual) Lymphocytes % (Manual) Monocytes % (Manual) Eosinophils % (Manual) Basophils % (Manual) Nucleated RBC % Seg Neutrophils # Seg Neutrophils # Man Lymphocytes # (Manual) Monocytes # (Manual) Eosinophils # (Manual) Basophils # (Manual) PT INR Fibrinogen dRVVT Confirm Interp Factor V Activity POC ABG pH POC ABG pCO2 POC ABG pO2 ABG pO2 ABG HCO3 ABG Base Excess ABG Hemoglobin Oxyhemoglobin Sodium Potassium Chloride Carbon Dioxide BUN 59 H Creatinine Glucose 298 H POC Glucose 125 H 167 H Lactic Acid Calcium Phosphorus Magnesium Direct Bilirubin AST ALT Alkaline Phosphatase Lactate Dehydrogenase Troponin T C-Reactive Protein Total Protein Albumin Prealbumin Triglycerides Cholesterol LDL Cholesterol Direct HDL Cholesterol Urine pH Urine WBC (Auto) Urine Creatinine Urine Total Protein Fluid Total Protein Vancomycin Trough Rheumatoid Factor Complement C4 Miscellaneous Test Crossmatch Allied health notes reviewed: RT
--- NOTE | 2016-12-31 13:11 | Progress Note ---
Assessment and Plan Assessment and plan: Patient is 46-year-old woman with a history of hypertension, diabetes, asthma, hyperlipidemia, chronic kidney disease and anxiety , who was brought in by family because, she couldn't get her words out, her face was also twisted, she was admitted for acute CVA and accelerated hypertension, she had a hx of poor adherence with her medications, and uncontrolled htn. Patient's SBP on admission was noted be greater than 260. TPA was started but this was discontinued after 5 minutes because her blood pressure became uncontrolled. The TPA was not initiated again because the patient was outside the TPA window. Status post cardiac arrest , 11/21/16 - Received CPR and was resuscitated. - Patient is on amiodarone. Fever - resolved - Antibiotic discontinued today per ID - s/p R thoracentesis on 11/14, 240cc of serous fluid removed, cx of fluid was negative - Stool negative for C. difficile Severe Sepsis with septic shock - Patient has episode of fever and leukocytosis Surgical wound infection/gram-negative sepsis/candidemia/peritonitis - On TPN JUANITA, ESRD - discussed with Dr Wadsworth and will [facility] on the weekends and will monitor Acute CVA with infarct - Neurology input appreciated - CT shows continued evolution of left MCA infarct with slight mass effect and edema, and there is no hemorrhage - PRINCE showed hyperdynamic with ef of 75%, neither clot nor septal defect seen - MRA Brain shows near complete occlusion of M2 and M3 of the left MCA - Repeat CT scan done on 09/11, shows stable findings - carotid doppler negative - Echo shows preserved systolic function but does show some left ventricular diastolic dysfunction - continue asa and statin Persistent vegetative state - This patient's needs placement at SNF - She was denied for LTACH Acute hypoxic respiratory failure requiring MV >96hrs - Status post tracheostomy, was on T piece Nosocomial acquired aspiration pneumonia/sepsis/UTI - Finished a course of antibiotics Asthma/COPD exacerbation - ON trach, mechanical ventilation Status Post CVA Bilateral pleural effusion, s/p right thoracentesis A. fib with RVR Diabetes type 2. Continue sliding-scale regular insulin and Accu-Cheks. Hyperlipidemia. Continue statin Nutrition - TPN Anemia requiring multiple transfusions/acute blood loss - currently stable - Will transfuse if it is below 7 Sacral decubitus ulcer - Status post debridement Disposition. Very poor prognosis. The high probability of a clinically significant, sudden or life threatening deterioration of the [neurologic, CV] system(s) required my full and direct attention, intervention and personal management. The aggregate critical care time was [34] minutes. This time is in addition to time spent performing reported procedures but includes the following: [x] Data Review and interpretation [x] Patient assessment and monitoring of vital signs [x] Documentation [x] Medication orders and management History Interval history: Patient was seen and evaluated this morning, patient is in persistent vegetative state. Status post trach, fistulas on the skin around the stomach area. Sacral decubitus ulcer s/p debridement. Hospitalist Physical - Physical exam Narrative exam: Patient is on mechanical ventilation, on trach. Vital signs as documented. Head exam is unremarkable. No scleral icterus . Neck is without jugular venous distension, thyromegaly, or carotid bruits. Lungs are clear to auscultation. Cardiac exam reveals regular rate and Rhythm. First and second heart sounds normal. No murmurs, rubs or gallops. Abdominal exam reveals abscess draining from the PEG site, and multiple fistulas around the stomach. Extremities are nonedematous and both femoral and pedal pulses are normal. Sacral decubitus ulcer. 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2-15.2) H 12/30/16 04:20 Plt Count 319 K/mm3 (140-440) 12/30/16 04:20 Lymph % (Auto) 15.9 % (13.4-35.0) 12/30/16 04:20 Pepin % (Auto) 6.7 % (0.0-7.3) 12/30/16 04:20 Eos % (Auto) 0.5 % (0.0-4.3) 12/30/16 04:20 Baso % (Auto) 0.7 % (0.0-1.8) 12/30/16 04:20 Lymph # 2.5 K/mm3 (1.2-5.4) 12/30/16 04:20 Pepin # 1.0 K/mm3 (0.0-0.8) H 12/30/16 04:20 Eos # 0.1 K/mm3 (0.0-0.4) 12/30/16 04:20 Baso # 0.1 K/mm3 (0.0-0.1) 12/30/16 04:20 Add Manual Diff Complete 12/19/16 05:02 Total Counted 100 12/19/16 05:02 Seg Neutrophils % 76.2 % (40.0-70.0) H 12/30/16 04:20 Seg Neuts % (Manual) 64.0 % (40.0-70.0) 12/19/16 05:02 Band Neutrophils % 15.0 % 12/19/16 05:02 Lymphocytes % (Manual) 13.0 % (13.4-35.0) L 12/19/16 05:02 Reactive Lymphs % (Man) 0 % 12/19/16 05:02 Monocytes % (Manual) 7.0 % (0.0-7.3) 12/19/16 05:02 Eosinophils % (Manual) 0 % (0.0-4.3) 12/19/16 05:02 Basophils % (Manual) 1.0 % (0.0-1.8) 12/19/16 05:02 Metamyelocytes % 0 % 12/19/16 05:02 Myelocytes % 0 % 12/19/16 05:02 Promyelocytes % 0 % 12/19/16 05:02 Blast Cells % 0 % 12/19/16 05:02 Nucleated RBC % 1.0 % (0.0-0.9) H 12/19/16 05:02 Seg Neutrophils # 11.9 K/mm3 (1.8-7.7) H 12/30/16 04:20 Seg Neutrophils # Man 12.9 K/mm3 (1.8-7.7) H 12/19/16 05:02 Band Neutrophils # 3.0 K/mm3 12/19/16 05:02 Lymphocytes # (Manual) 2.6 K/mm3 (1.2-5.4) 12/19/16 05:02 Abs React Lymphs (Man) 0.0 K/mm3 12/19/16 05:02 Monocytes # (Manual) 1.4 K/mm3 (0.0-0.8) H 12/19/16 05:02 Eosinophils # (Manual) 0.0 K/mm3 (0.0-0.4) 12/19/16 05:02 Basophils # (Manual) 0.2 K/mm3 (0.0-0.1) H 12/19/16 05:02 Metamyelocytes # 0.0 K/mm3 12/19/16 05:02 Myelocytes # 0.0 K/mm3 12/19/16 05:02 Promyelocytes # 0.0 K/mm3 12/19/16 05:02 Blast Cells # 0.0 K/mm3 12/19/16 05:02 Pathologist Review 09/13/16 04:00 WBC Morphology Not Reportable 12/19/16 05:02 Hypersegmented Neuts Not Reportable 12/19/16 05:02 Hyposegmented Neuts Not Reportable 12/19/16 05:02 Hypogranular Neuts Not Reportable 12/19/16 05:02 Smudge Cells Not Reportable 12/19/16 05:02 Toxic Granulation Not Reportable 12/19/16 05:02 Toxic Vacuolation Not Reportable 12/19/16 05:02 Dohle Bodies Not Reportable 12/19/16 05:02 Pelger-Huet Anomaly Not Reportable 12/19/16 05:02 Jasmina Rods Not Reportable 12/19/16 05:02 Platelet Estimate Consistent w auto 12/19/16 05:02 Clumped Platelets Not Reportable 12/19/16 05:02 Plt Clumps, EDTA Not Reportable 12/19/16 05:02 Large Platelets Not Reportable 12/19/16 05:02 Giant Platelets Not Reportable 12/19/16 05:02 Platelet Satelliting Not Reportable 12/19/16 05:02 Plt Morphology Comment Not Reportable 12/19/16 05:02 RBC Morphology Not Reportable 12/19/16 05:02 Dimorphic RBCs Not Reportable 12/19/16 05:02 Polychromasia Not Reportable 12/19/16 05:02 Hypochromasia Not Reportable 12/19/16 05:02 Poikilocytosis Not Reportable 12/19/16 05:02 Anisocytosis Not Reportable 12/19/16 05:02 Microcytosis Not Reportable 12/19/16 05:02 Macrocytosis Not Reportable 12/19/16 05:02 Spherocytes Not Reportable 12/19/16 05:02 Pappenheimer Bodies Not Reportable 12/19/16 05:02 Sickle Cells Not Reportable 12/19/16 05:02 Target Cells Few 12/19/16 05:02 Tear Drop Cells Not Reportable 12/19/16 05:02 Ovalocytes Not Reportable 12/19/16 05:02 Stomatocytes Rare 12/03/16 04:00 Helmet Cells Not Reportable 12/19/16 05:02 [place] Bodies Not Reportable 12/19/16 05:02 [place] Rings Not Reportable 12/19/16 05:02 Chuck Cells Not Reportable 12/19/16 05:02 Bite Cells Not Reportable 12/19/16 05:02 Crenated Cell Not Reportable 12/19/16 05:02 Elliptocytes Not Reportable 12/19/16 05:02 Acanthocytes (Spur) Not Reportable 12/19/16 05:02 Rouleaux Not Reportable 12/19/16 05:02 Hemoglobin C Crystals Not Reportable 12/19/16 05:02 Schistocytes Not Reportable 12/19/16 05:02 Malaria parasites Not Reportable 12/19/16 05:02 ESR > 140.0 mm/Hr (0-20) 09/08/16 11:48 Jun Bodies Not Reportable 12/19/16 05:02 Hem Pathologist Commnt No 12/19/16 05:02 PT 16.1 Sec. (12.2-14.9) H 12/28/16 08:30 INR 1.23 (0.87-1.13) H 12/28/16 08:30 APTT 33.0 Sec. (24.2-36.6) 10/09/16 03:45 Thrombin Time 16.8 Sec. (15.1-19.6) 09/03/16 00:10 Fibrinogen 750 mg/dl (211-480) H 09/08/16 11:48 Lupus Anticoagulant see below 09/12/16 09:59 LA PTT Baseline See scanned report 09/12/16 09:59 dRVVT Confirm Interp Positive (Negative) H 09/12/16 09:59 dRVVT Screen 50:50 See scanned report 09/12/16 09:59 dRVVT Mix Interpret See scanned report 09/12/16 09:59 Protein C Antigen 122 % (70-140) 09/08/16 15:35 Free Protein S 97 % normal (50-147) 09/08/16 15:35 Total Protein S 109 % (70-140) 09/08/16 15:35 Antithrombin III Ag 100 % (80-120) 09/08/16 15:35 Heparin Anti-Xa, Unfract Negative (Negative) 09/29/16 13:35 Factor V Activity 182 % (65-150) H 09/08/16 15:35 POC ABG pH 7.503 (7.35-7.45) H 12/19/16 09:36 ABG pH 7.450 pH Units (7.350-7.450) 12/05/16 Unknown POC ABG pCO2 30.1 (35-45) L 12/19/16 09:36 ABG pCO2 29.6 mm Hg 12/05/16 Unknown POC ABG pO2 85 (80-105) 12/19/16 09:36 ABG pO2 75.2 mm Hg (80.0-90.0) L 12/05/16 Unknown POC ABG HCO3 23.6 12/19/16 09:36 ABG HCO3 20.1 mmol/L (20.0-26.0) 12/05/16 Unknown POC ABG Total CO2 25 12/19/16 09:36 POC ABG O2 Sat 97 12/19/16 09:36 ABG O2 Saturation 96.8 % (95.0-99.0) 12/05/16 Unknown ABG O2 Content 9.9 (0.0-44) 12/05/16 Unknown POC ABG Base Excess 1 12/19/16 09:36 ABG Base Excess -3.4 mmol/L (-2.0-3.0) L 12/05/16 Unknown ABG Hemoglobin 7.4 gm/dl (12.0-16.0) L 12/05/16 Unknown ABG Carboxyhemoglobin 1.8 % (0.0-5.0) 12/05/16 Unknown ABG Methemoglobin 0.6 % (0.0-1.5) 12/05/16 Unknown Oxyhemoglobin 94.5 % (95.0-99.0) L 12/05/16 Unknown FiO2 28 % 12/19/16 09:36 Sodium 139 mmol/L (137-145) 12/31/16 04:00 Potassium 4.1 mmol/L (3.6-5.0) 12/31/16 04:00 Chloride 100.6 mmol/L (98-107) 12/31/16 04:00 Carbon Dioxide 24 mmol/L (22-30) 12/31/16 04:00 Anion Gap 19 mmol/L 12/31/16 04:00 BUN 59 mg/dL (7-17) H 12/31/16 04:00 Creatinine 1.2 mg/dL (0.7-1.2) 12/31/16 04:00 Estimated GFR 59 ml/min 12/31/16 04:00 BUN/Creatinine Ratio 49 % 12/31/16 04:00 Glucose 298 mg/dL (65-100) H 12/31/16 04:00 POC Glucose 125 (70-105) H 12/31/16 12:18 Osmolality 351 Mosm/kg 09/16/16 11:47 Lactic Acid 4.50 mmol/L (0.7-2.0) H* 09/28/16 07:25 Calcium 8.5 mg/dL (8.4-10.2) 12/31/16 04:00 Phosphorus 2.50 mg/dL (2.5-4.5) D 12/31/16 04:00 Magnesium 2.00 mg/dL (1.7-2.3) 12/31/16 04:00 Total Bilirubin 0.90 mg/dL (0.1-1.2) 12/18/16 05:00 Direct Bilirubin 0.3 mg/dL (0-0.2) H 10/10/16 05:00 Indirect Bilirubin 0.1 mg/dL 10/10/16 05:00 AST 34 units/L (5-40) 12/18/16 05:00 ALT 42 units/L (7-56) 12/18/16 05:00 Alkaline Phosphatase 257 units/L (35-129) H 12/18/16 05:00 Ammonia 27.0 umol/L (25-60) 09/07/16 08:37 Lactate Dehydrogenase 196 units/L (91-180) H 11/11/16 06:59 Total Creatine Kinase 121 units/L (30-135) 09/29/16 20:12 CK-MB (CK-2) < 1.0 ng/mL (0.0-4.0) 09/29/16 20:12 CK-MB (CK-2) Rel Index 0.8 (0-4) 09/29/16 20:12 Troponin T 0.204 ng/mL (0.00-0.029) H* 09/29/16 20:12 C-Reactive Protein 19.30 mg/dL (0.00-1.30) H 12/05/16 05:00 Total Protein 5.9 g/dL (6.3-8.2) L 12/18/16 05:00 Albumin 1.8 g/dL (3.9-5) L 12/18/16 05:00 Albumin/Globulin Ratio 0.4 % 12/18/16 05:00 Prealbumin 0.110 g/L (0.200-0.400) L 12/29/16 05:15 Triglycerides 137 mg/dL (2-149) 09/29/16 20:12 Cholesterol 31 mg/dL (50-199) L 09/29/16 20:12 LDL Cholesterol Direct 4 mg/dL (50-130) L 09/29/16 20:12 HDL Cholesterol 3 mg/dL (40-59) L 09/29/16 20:12 Cholesterol/HDL Ratio 10.33 % 09/29/16 20:12 Angiotensin Convert Enz See scanned report 09/08/16 11:48 Renin 0.99 ng/mL/h (0.25-5.82) 10/07/16 10:56 Aldosterone <1 ng/dL () 10/07/16 10:56 Aldosterone/Renin Dir see below 10/07/16 10:56 Serotonin Release Assay See scanned report 09/29/16 13:35 TSH 1.010 mlU/mL (0.270-4.200) 09/07/16 08:37 HCG, Qual Negative (Negative) 09/03/16 00:10 Urine Color Yellow (Yellow) 11/05/16 13:09 Urine Turbidity Clear (Clear) 11/05/16 13:09 Urine pH 9.0 (5.0-7.0) H 11/05/16 13:09 Ur Specific [place] 1.011 (1.003-1.030) 11/05/16 13:09 Urine Protein 100 mg/dl mg/dL (Negative) 11/05/16 13:09 Urine Glucose (UA) Neg mg/dL (Negative) 11/05/16 13:09 Urine Ketones Neg mg/dL (Negative) 11/05/16 13:09 Urine Blood Neg (Negative) 11/05/16 13:09 Urine Nitrite Neg (Negative) 11/05/16 13:09 Urine Bilirubin Neg (Negative) 11/05/16 13:09 Urine Urobilinogen < 2.0 mg/dL (<2.0) 11/05/16 13:09 Ur Leukocyte Esterase Neg (Negative) 11/05/16 13:09 Urine WBC (Auto) 4.0 /HPF (0.0-6.0) 11/05/16 13:09 Urine RBC (Auto) 1.0 /HPF (0.0-6.0) 11/05/16 13:09 U Epithel Cells (Auto) 1.0 /HPF (0-13.0) 10/07/16 18:30 Urine Bacteria (Auto) 4+ /HPF (Negative) 11/05/16 13:09 Urine WBC Clumps 2+ /HPF 09/07/16 02:47 Hyaline Casts 4 /LPF 09/07/16 02:47 Urine Mucus Few /HPF 10/07/16 18:30 Urine Yeast (Budding) 3+ /HPF 10/07/16 18:30 Urine Eosinophils None seen (None Seen) 09/07/16 16:00 Urine Total Volume 950 11/12/16 10:18 Urine Creatinine 19.7 mg/dL (0.1-20.0) 11/12/16 10:18 Height (in) 65.0 inches 11/12/16 10:18 Weight (lb) 181.0 lbs 11/12/16 10:18 Creatinine Clearance 5 11/12/16 10:18 Urine Sodium 36 mEq/L 09/16/16 19:19 Urine Total Protein 16 mg/dL (5-11.8) H 09/16/16 19:19 Fluid Total Protein < 3.0 (15.0-45.0) L 11/10/16 14:20 Fluid LDH 123 11/10/16 14:20 Vancomycin Trough 2.3 ug/mL (5.0-20.0) L 09/21/16 13:00 Random Vancomycin 16.5 ug/mL (0-40.0) 11/28/16 09:45 Urine Opiates Screen Presumptive negative 09/03/16 15:11 Urine Methadone Screen Presumptive positive 09/03/16 15:11 Ur Barbiturates Screen Presumptive positive 09/03/16 15:11 Ur Phencyclidine Scrn Presumptive negative 09/03/16 15:11 Ur Amphetamines Screen Presumptive negative 09/03/16 15:11 U Benzodiazepines Scrn Presumptive negative 09/03/16 15:11 Urine Cocaine Screen Presumptive negative 09/03/16 15:11 U Marijuana (THC) Screen Presumptive positive 09/03/16 15:11 Drugs of Abuse Note Disclamer 09/03/16 15:11 Rheumatoid Factor 24 IU/ml (0-13) H 09/08/16 11:48 SAHIL Screen Negative (Negative) 09/07/16 09:20 Proteinase 3 (PR3) Ab <1.0 AI (<1.0) 09/07/16 09:20 Myeloperoxidase Ab <1.0 AI (<1.0) 09/07/16 09:20 Sjogren's Antibody <1.0 AI (<1.0) 09/08/16 15:35 Scl-70 Scleroderma Ab <1.0 AI (<1.0) 09/08/16 15:35 Centromere B Antibody <1.0 AI (<1.0) 09/08/16 12:02 Heparin-induced Plt Ab Negative (Negative) 09/29/16 13:35 UF Heparin High Dose 11 % Release 09/29/16 13:35 SUDHIR UFH Low Dose 0.1 6 % Release 09/29/16 13:35 SUDHIR UFH Low Dose 0.5 8 % Release 09/29/16 13:35 Cardiolipid IgG Ab <14 GPL (<=14) 09/12/16 09:59 Cardiolipid IgA Ab <11 APL (<=11) 09/12/16 09:59 Cardiolipid IgM Ab <12 MPL (<=12) 09/12/16 09:59 Complement C3 148 mg/dL (90-180) 09/07/16 09:20 Complement C4 58 mg/dL (16-47) H 09/07/16 09:20 RPR Nonreactive (Nonreactive) 09/08/16 11:48 Hepatitis A IgM Ab Non-reactive (NonReactive) 09/24/16 14:40 Hep Bs Antigen Non-reactive (Negative) 09/24/16 14:40 Hep B Core IgM Ab Non-reactive (NonReactive) 09/24/16 14:40 Hepatitis C Antibody Non-reactive (NonReactive) 09/24/16 14:40 HIV 1&2 Antibody Rapid Non react (Non React) 09/08/16 11:48 HIV P24 Antigen Non react (Non React) 09/08/16 11:48 Miscellaneous Test Flexitest 1 H 11/05/16 13:25 Blood Type A POSITIVE 12/29/16 14:00 Antibody Screen Negative 12/29/16 14:00 DELORIS Antibody Screen Negative 11/24/16 11:20 Crossmatch See Detail 12/29/16 14:00
[2016-12-31] MEDS ORDERED: TPN ADULT IV SCH (20:00)
[2017-01-01] MEDS: LOPRESSOR PO SCH ×5 (00:21→23:13)
[2017-01-01] MEDS: REGLAN IV SCH ×5 (00:21→23:07)
[2017-01-01] MEDS: DUONEB *Not for PRN Use IH SCH ×4 (04:19→20:03)
[2017-01-01 06:18] LABS: Albumin 1.5 g/dL (3.9-5); Calcium 9.1 mg/dL (8.4-10.2)
[2017-01-01] MEDS: APRESOLINE PO SCH ×4 (06:18→22:48)
[2017-01-01] MEDS: DAKIN'S HALF STRENGTH TP SCH ×3 (06:20→23:14)
[2017-01-01] MEDS: HumuLIN R SUB-Q SCH ×4 (06:26→17:16)
[2017-01-01] MEDS: HEPARIN SUB-Q SCH ×2 (09:33→22:49)
[2017-01-01] MEDS: ROBINUL PO SCH ×2 (09:33→22:48)
[2017-01-01] MEDS: PROTONIX FEEDTUBE SCH (09:33)
[2017-01-01] MEDS: CORDARONE PO SCH ×2 (09:33→22:50)
[2017-01-01] MEDS: NORVASC PO SCH (09:38)
--- NOTE | 2017-01-01 11:28 | Progress Note ---
Assessment and Plan 46-year-old woman with a history of hypertension, diabetes, asthma, hyperlipidemia, chronic kidney disease and anxiety , who was brought in by family because, she couldn't get her words out, her face was also twisted, she was admitted for acute CVA and accelerated hypertension, she had a hx of poor adherence with her medications, and uncontrolled htn. Patient's SBP on admission was noted be greater than 260. TPA was started but this was discontinued after 5 minutes because her blood pressure became uncontrolled. The TPA was not initiated again because the patient was outside the TPA window. Acute hypoxic respiratory failure requiring MV >96hrs Status post tracheostomy, back on full mechanical ventilatory support s/p PEA arrest with ROSC. VAP bundle addressed. Continue with daily SBTs as tolerated- may better tolerate it after HD Get CXR if ongoing difficulty with weaning to r/o worsening effusions of new infiltrates as etiology for difficulty in weaning. VTE prophylaxis Stress ulcer prophylaxis Aspiration precautions HOB>40 Lung protective strategies Severe Sepsis with septic shock, recurrent Leukocytosis Surgical wound infection/gram-negative sepsis/candidemia/peritonitis JUANITA, now ESRD s/p CVA Vegetative state Nosocomial acquired aspiration pneumonia/sepsis/UTI Asthma/COPD exacerbation Hypertensive Emergency-stable Bilateral pleural effusion, s/p right thoracentesis Paroxysmal atrial fibrillation with rapid ventricular rate, failed cardioversion Hypokalemia/Hypomagnesemia/hypophosphatemia. Replete electrolytes as needed. Diabetes type 2. Continue sliding-scale regular insulin and Accu-Cheks. Hyperlipidemia. Continue statin Nutrition Anemia requiring multiple transfusions/acute blood loss Disposition. Very poor prognosis. - Patient Problems (1) Acute respiratory failure with hypoxia Current Visit: Yes Status: Acute (2) Acute blood loss anemia Current Visit: Yes Status: Resolved (3) Acute CVA (cerebrovascular accident) Current Visit: Yes Status: Acute (4) Chronic renal insufficiency Current Visit: Yes Status: Acute Qualifiers: Chronic kidney disease stage: C (5) Uncontrolled hypertension Current Visit: Yes Status: Acute (6) Leukocytosis (leucocytosis) Current Visit: Yes Status: Acute Qualifiers: Leukocytosis type: leukemoid reaction Qualified Code(s): D72.823 - Leukemoid reaction (7) Dislodged gastrostomy tube Current Visit: Yes Status: Acute (8) Fungemia Current Visit: Yes Status: Resolved Subjective Date of service: 11/12/17 Principal diagnosis: Acute resp failure on MVS; S/P Acute CVA; Acute Encephalopathy; JUANITA Interval history: Follow up for: Acute respiratory failure on MVS s/p tracheostomy ; S/P Acute CVA; Acute Encephalopathy; JUANITA on HD Seen and examined at bedside; 24hour events reviewed; nursing and respiratory care staff consulted; no adverse overnight events reported to me; remains on MVS ; s/p sacral wound debridement , AMS is persistent; still with NGT to LIS Seen and examined. Vitals, labs, medications, chart reviewed. On mechanical ventilatory support, continues to fail weaning trials Objective - Exam Narrative Exam: Patient is on mechanical ventilation,s/p tracheostomy No dysynchrony, airway pressures not elevated . Vital signs as documented. Atraumatic, normocephalic No scleral icterus . Neck is without jugular venous distension, or carotid bruits. Lungs: decreased AE bilaterally, Coarse breath sounds anteriorly, bilaterally CVS: Tachycardia, S1,S2, No murmurs, rubs or gallops. Abdominal exam; Full, soft, ND, NT, drains at fistula sites Extremities : Bilateral lower extremity trace edema, no cyanosis, no clubbing Sacral decubitus ulcer. WELDING SPECIALIST:Awake, alert, not obeying commands, not tracking voice Vital Signs - 12hr 12/31/16 12/31/16 01/01/17 23:30 23:45 00:00 Temperature Pulse Rate 106 H 106 H 107 H Pulse Rate [ Anterior Bilateral Throughout] Pulse Rate [ From Monitor] Respiratory 15 14 15 Rate Respiratory Rate [Anterior Bilateral Throughout] Blood Pressure 124/76 119/76 130/75 O2 Sat by Pulse 99 98 98 Oximetry O2 Sat by Pulse Oximetry [ Assessment] 01/01/17 01/01/17 01/01/17 00:04 00:15 00:21 Temperature Pulse Rate 96 H 109 H 106 H Pulse Rate [ Anterior Bilateral Throughout] Pulse Rate [ From Monitor] Respiratory 17 Rate Respiratory Rate [Anterior Bilateral Throughout] Blood Pressure 127/76 133/83 133/83 O2 Sat by Pulse 100 98 Oximetry O2 Sat by Pulse Oximetry [ Assessment] 01/01/17 01/01/17 01/01/17 00:30 00:45 01:00 Temperature Pulse Rate 106 H 99 H 97 H Pulse Rate [ Anterior Bilateral Throughout] Pulse Rate [ From Monitor] Respiratory 16 33 H 28 H Rate Respiratory Rate [Anterior Bilateral Throughout] Blood Pressure 146/92 141/86 141/92 O2 Sat by Pulse 100 100 99 Oximetry O2 Sat by Pulse Oximetry [ Assessment] 01/01/17 01/01/17 01/01/17 01:15 01:30 01:45 Temperature Pulse Rate 97 H 96 H 97 H Pulse Rate [ Anterior Bilateral Throughout] Pulse Rate [ From Monitor] Respiratory 36 H 28 H 35 H Rate Respiratory Rate [Anterior Bilateral Throughout] Blood Pressure 147/90 139/89 143/90 O2 Sat by Pulse 99 100 100 Oximetry O2 Sat by Pulse Oximetry [ Assessment] 01/01/17 01/01/17 01/01/17 02:00 02:15 02:30 Temperature Pulse Rate 99 H 98 H 99 H Pulse Rate [ Anterior Bilateral Throughout] Pulse Rate [ From Monitor] Respiratory 18 15 27 H Rate Respiratory Rate [Anterior Bilateral Throughout] Blood Pressure 144/88 144/89 136/95 O2 Sat by Pulse 100 100 100 Oximetry O2 Sat by Pulse Oximetry [ Assessment] 01/01/17 01/01/17 01/01/17 02:45 03:00 03:15 Temperature Pulse Rate 98 H 100 H 101 H Pulse Rate [ Anterior Bilateral Throughout] Pulse Rate [ From Monitor] Respiratory 32 H 19 28 H Rate Respiratory Rate [Anterior Bilateral Throughout] Blood Pressure 141/85 146/88 145/93 O2 Sat by Pulse 100 100 100 Oximetry O2 Sat by Pulse Oximetry [ Assessment] 01/01/17 01/01/17 01/01/17 03:30 03:45 03:48 Temperature 98.7 F Pulse Rate 101 H 101 H Pulse Rate [ Anterior Bilateral Throughout] Pulse Rate [ From Monitor] Respiratory 14 14 Rate Respiratory Rate [Anterior Bilateral Throughout] Blood Pressure 144/83 142/87 O2 Sat by Pulse 100 100 Oximetry O2 Sat by Pulse Oximetry [ Assessment] 01/01/17 01/01/17 01/01/17 04:00 04:15 04:19 Temperature Pulse Rate 101 H 102 H 103 H Pulse Rate [ Anterior Bilateral Throughout] Pulse Rate [ From Monitor] Respiratory 20 24 Rate Respiratory Rate [Anterior Bilateral Throughout] Blood Pressure 140/83 139/80 139/80 O2 Sat by Pulse 100 100 100 Oximetry O2 Sat by Pulse Oximetry [ Assessment] 01/01/17 01/01/17 01/01/17 04:21 04:30 04:35 Temperature Pulse Rate Pulse Rate [ 103 H 109 H Anterior Bilateral Throughout] Pulse Rate [ From Monitor] Respiratory Rate Respiratory 18 22 Rate [Anterior Bilateral Throughout] Blood Pressure 156/92 O2 Sat by Pulse 99 Oximetry O2 Sat by Pulse Oximetry [ Assessment] 01/01/17 01/01/17 01/01/17 04:59 05:01 05:15 Temperature Pulse Rate 108 H 109 H 110 H Pulse Rate [ Anterior Bilateral Throughout] Pulse Rate [ From Monitor] Respiratory 12 15 26 H Rate Respiratory Rate [Anterior Bilateral Throughout] Blood Pressure 156/92 156/92 154/91 O2 Sat by Pulse 99 Oximetry O2 Sat by Pulse Oximetry [ Assessment] 01/01/17 01/01/17 01/01/17 05:30 05:45 06:00 Temperature Pulse Rate 109 H 108 H 107 H Pulse Rate [ Anterior Bilateral Throughout] Pulse Rate [ From Monitor] Respiratory 25 H 24 22 Rate Respiratory Rate [Anterior Bilateral Throughout] Blood Pressure 166/101 160/96 158/97 O2 Sat by Pulse 99 100 100 Oximetry O2 Sat by Pulse Oximetry [ Assessment] 01/01/17 01/01/17 01/01/17 06:15 06:18 06:27 Temperature Pulse Rate 107 H 107 H 98 H Pulse Rate [ Anterior Bilateral Throughout] Pulse Rate [ From Monitor] Respiratory 23 Rate Respiratory Rate [Anterior Bilateral Throughout] Blood Pressure 149/92 149/92 112/68 O2 Sat by Pulse 99 Oximetry O2 Sat by Pulse Oximetry [ Assessment] 01/01/17 01/01/17 01/01/17 06:30 06:45 07:00 Temperature Pulse Rate 97 H 94 H 93 H Pulse Rate [ Anterior Bilateral Throughout] Pulse Rate [ From Monitor] Respiratory 26 H 25 H 22 Rate Respiratory Rate [Anterior Bilateral Throughout] Blood Pressure 129/70 134/65 110/63 O2 Sat by Pulse 100 100 99 Oximetry O2 Sat by Pulse Oximetry [ Assessment] 01/01/17 01/01/17 01/01/17 07:15 07:30 07:45 Temperature Pulse Rate 93 H 93 H 92 H Pulse Rate [ Anterior Bilateral Throughout] Pulse Rate [ From Monitor] Respiratory 22 21 20 Rate Respiratory Rate [Anterior Bilateral Throughout] Blood Pressure 108/62 107/61 102/60 O2 Sat by Pulse 99 99 99 Oximetry O2 Sat by Pulse Oximetry [ Assessment] 01/01/17 01/01/17 01/01/17 07:48 08:00 08:04 Temperature 97.5 F L Pulse Rate 91 H 96 H Pulse Rate [ 91 H 92 H Anterior Bilateral Throughout] Pulse Rate [ 96 H From Monitor] Respiratory 13 Rate Respiratory 19 23 Rate [Anterior Bilateral Throughout] Blood Pressure 102/60 122/72 O2 Sat by Pulse 99 99 Oximetry O2 Sat by Pulse 99 Oximetry [ Assessment] 01/01/17 01/01/17 01/01/17 08:05 08:08 08:15 Temperature Pulse Rate 95 H 95 H 96 H Pulse Rate [ Anterior Bilateral Throughout] Pulse Rate [ From Monitor] Respiratory 48 H 25 H Rate Respiratory Rate [Anterior Bilateral Throughout] Blood Pressure 122/72 122/72 116/69 O2 Sat by Pulse 98 100 100 Oximetry O2 Sat by Pulse Oximetry [ Assessment] 01/01/17 09:38 Temperature Pulse Rate 99 H Pulse Rate [ Anterior Bilateral Throughout] Pulse Rate [ From Monitor] Respiratory Rate Respiratory Rate [Anterior Bilateral Throughout] Blood Pressure 113/67 O2 Sat by Pulse Oximetry O2 Sat by Pulse Oximetry [ Assessment] Constitutional: appears uncomfortable, other (not tracking) Eyes: non-icteric, other (tracheostomy tube in midline of neck) ENT: oropharynx moist, oropharyngeal exudate pre Neck: supple, no lymphadenopathy, no JVD, other (no thyromegaly) Effort: mildly labored Ascultation: Bilateral: clear, diminished breath sounds (bases), rales, rhonchi (and referred upper airway sounds) Percussion: Bilateral: not dull, dull (bases) Cardiovascular: regular rate and rhythm, other (no rubs / murmurs) Gastrointestinal: hypoactive bowel sounds, soft, non-tender, non-distended, other (RLQ & LUQ stomas with colostomy bags) Integumentary: decubitus ulcer (sacral; stage 4 s/p surgical debridement), other (no rash; no cellulitis; poor turgor) Extremities: no cyanosis, pulses normal, no ischemia or petechiae, edema (1+ bilaterally) Neurologic: pupils equal and round, unable to assess, other (encephalopathic) Psychiatric: other (unable to assess) CBC and BMP: 12/30/16 04:20 01/02/17 06:00 ABG, PT/INR, D-dimer: ABG POC ABG pH 7.503 (7.35-7.45) H 12/19/16 09:36 ABG pH 7.450 pH Units (7.350-7.450) 12/05/16 Unknown POC ABG pCO2 30.1 (35-45) L 12/19/16 09:36 ABG pCO2 29.6 mm Hg 12/05/16 Unknown POC ABG pO2 85 (80-105) 12/19/16 09:36 ABG pO2 75.2 mm Hg (80.0-90.0) L 12/05/16 Unknown POC ABG HCO3 23.6 12/19/16 09:36 POC ABG Total CO2 25 12/19/16 09:36 POC ABG O2 Sat 97 12/19/16 09:36 ABG O2 Saturation 96.8 % (95.0-99.0) 12/05/16 Unknown PT/INR, D-dimer PT 16.1 Sec. (12.2-14.9) H 12/28/16 08:30 INR 1.23 (0.87-1.13) H 12/28/16 08:30 Abnormal lab findings: Abnormal Labs 09/03/16 09/03/16 09/03/16 12:12 15:07 16:20 WBC RBC Hgb Hct MCV MCH MCHC RDW Plt Count Lymph % (Auto) [place] % (Auto) Lymph # [place] # Baso # Seg Neutrophils % Seg Neuts % (Manual) Lymphocytes % (Manual) Monocytes % (Manual) Eosinophils % (Manual) Basophils % (Manual) Nucleated RBC % Seg Neutrophils # Seg Neutrophils # Man Lymphocytes # (Manual) Monocytes # (Manual) Eosinophils # (Manual) Basophils # (Manual) PT INR Fibrinogen dRVVT Confirm Interp Factor V Activity POC ABG pH 7.452 H POC ABG pCO2 POC ABG pO2 ABG pO2 ABG HCO3 ABG Base Excess ABG Hemoglobin Oxyhemoglobin Sodium Potassium Chloride Carbon Dioxide BUN Creatinine Glucose POC Glucose 178 H Lactic Acid Calcium Phosphorus 2.20 L Magnesium 1.60 L Direct Bilirubin AST ALT Alkaline Phosphatase Lactate Dehydrogenase Troponin T C-Reactive Protein Total Protein Albumin Prealbumin Triglycerides Cholesterol LDL Cholesterol Direct HDL Cholesterol Urine pH Urine WBC (Auto) Urine Creatinine Urine Total Protein Fluid Total Protein Vancomycin Trough Rheumatoid Factor Complement C4 Miscellaneous Test Crossmatch 09/03/16 09/03/16 09/03/16 17:57 17:58 23:50 WBC RBC Hgb Hct MCV MCH MCHC RDW Plt Count Lymph % (Auto) [place] % (Auto) Lymph # [place] # Baso # Seg Neutrophils % Seg Neuts % (Manual) Lymphocytes % (Manual) Monocytes % (Manual) Eosinophils % (Manual) Basophils % (Manual) Nucleated RBC % Seg Neutrophils # Seg Neutrophils # Man Lymphocytes # (Manual) Monocytes # (Manual) Eosinophils # (Manual) Basophils # (Manual) PT INR Fibrinogen dRVVT Confirm Interp Factor V Activity POC ABG pH POC ABG pCO2 POC ABG pO2 ABG pO2 ABG HCO3 ABG Base Excess ABG Hemoglobin Oxyhemoglobin Sodium Potassium Chloride Carbon Dioxide BUN Creatinine Glucose POC Glucose 162 H 145 H Lactic Acid Calcium Phosphorus 2.30 L Magnesium Direct Bilirubin AST ALT Alkaline Phosphatase Lactate Dehydrogenase Troponin T C-Reactive Protein Total Protein Albumin Prealbumin Triglycerides Cholesterol LDL Cholesterol Direct HDL Cholesterol Urine pH Urine WBC (Auto) Urine Creatinine Urine Total Protein Fluid Total Protein Vancomycin Trough Rheumatoid Factor Complement C4 Miscellaneous Test Crossmatch 09/04/16 09/04/16 09/04/16 03:31 03:31 05:42 WBC RBC Hgb 9.7 L D Hct MCV 72 L MCH 23 L MCHC RDW 17.5 H Plt Count Lymph % (Auto) 11.1 L [place] % (Auto) Lymph # [place] # Baso # Seg Neutrophils % 84.3 H Seg Neuts % (Manual) Lymphocytes % (Manual) Monocytes % (Manual) Eosinophils % (Manual) Basophils % (Manual) Nucleated RBC % Seg Neutrophils # 8.9 H Seg Neutrophils # Man Lymphocytes # (Manual) Monocytes # (Manual) Eosinophils # (Manual) Basophils # (Manual) PT INR Fibrinogen dRVVT Confirm Interp Factor V Activity POC ABG pH POC ABG pCO2 POC ABG pO2 ABG pO2 ABG HCO3 ABG Base Excess ABG Hemoglobin Oxyhemoglobin Sodium 135 L Potassium 2.9 L* Chloride 97.2 L Carbon Dioxide 19 L BUN Creatinine 1.7 H Glucose 170 H POC Glucose 152 H Lactic Acid Calcium Phosphorus Magnesium Direct Bilirubin AST ALT Alkaline Phosphatase Lactate Dehydrogenase Troponin T C-Reactive Protein Total Protein Albumin Prealbumin Triglycerides 160 H Cholesterol LDL Cholesterol Direct HDL Cholesterol 31 L Urine pH Urine WBC (Auto) Urine Creatinine Urine Total Protein Fluid Total Protein Vancomycin Trough Rheumatoid Factor Complement C4 Miscellaneous Test Crossmatch 09/04/16 09/04/16 09/04/16 11:34 17:46 23:29 WBC RBC Hgb Hct MCV MCH MCHC RDW Plt Count Lymph % (Auto) [place] % (Auto) Lymph # [place] # Baso # Seg Neutrophils % Seg Neuts % (Manual) Lymphocytes % (Manual) Monocytes % (Manual) Eosinophils % (Manual) Basophils % (Manual) Nucleated RBC % Seg Neutrophils # Seg Neutrophils # Man Lymphocytes # (Manual) Monocytes # (Manual) Eosinophils # (Manual) Basophils # (Manual) PT INR Fibrinogen dRVVT Confirm Interp Factor V Activity POC ABG pH POC ABG pCO2 POC ABG pO2 ABG pO2 ABG HCO3 ABG Base Excess ABG Hemoglobin Oxyhemoglobin Sodium Potassium Chloride Carbon Dioxide BUN Creatinine Glucose POC Glucose 165 H 210 H 139 H Lactic Acid Calcium Phosphorus Magnesium Direct Bilirubin AST ALT Alkaline Phosphatase Lactate Dehydrogenase Troponin T C-Reactive Protein Total Protein Albumin Prealbumin Triglycerides Cholesterol LDL Cholesterol Direct HDL Cholesterol Urine pH Urine WBC (Auto) Urine Creatinine Urine Total Protein Fluid Total Protein Vancomycin Trough Rheumatoid Factor Complement C4 Miscellaneous Test Crossmatch 09/05/16 09/05/16 09/05/16 04:05 04:05 05:38 WBC RBC Hgb Hct MCV 76 L D MCH 23 L MCHC RDW 17.8 H Plt Count Lymph % (Auto) [place] % (Auto) Lymph # [place] # Baso # Seg Neutrophils % Seg Neuts % (Manual) Lymphocytes % (Manual) Monocytes % (Manual) Eosinophils % (Manual) Basophils % (Manual) Nucleated RBC % Seg Neutrophils # Seg Neutrophils # Man Lymphocytes # (Manual) Monocytes # (Manual) Eosinophils # (Manual) Basophils # (Manual) PT INR Fibrinogen dRVVT Confirm Interp Factor V Activity POC ABG pH POC ABG pCO2 POC ABG pO2 ABG pO2 ABG HCO3 ABG Base Excess ABG Hemoglobin Oxyhemoglobin Sodium 134 L Potassium Chloride Carbon Dioxide 18 L BUN Creatinine 1.8 H Glucose 192 H POC Glucose 175 H Lactic Acid Calcium Phosphorus Magnesium Direct Bilirubin AST ALT Alkaline Phosphatase Lactate Dehydrogenase Troponin T C-Reactive Protein Total Protein Albumin Prealbumin Triglycerides Cholesterol LDL Cholesterol Direct HDL Cholesterol Urine pH Urine WBC (Auto) Urine Creatinine Urine Total Protein Fluid Total Protein Vancomycin Trough Rheumatoid Factor Complement C4 Miscellaneous Test Crossmatch 09/05/16 09/05/16 09/05/16 11:38 17:48 23:22 WBC RBC Hgb Hct MCV MCH MCHC RDW Plt Count Lymph % (Auto) [place] % (Auto) Lymph # [place] # Baso # Seg Neutrophils % Seg Neuts % (Manual) Lymphocytes % (Manual) Monocytes % (Manual) Eosinophils % (Manual) Basophils % (Manual) Nucleated RBC % Seg Neutrophils # Seg Neutrophils # Man Lymphocytes # (Manual) Monocytes # (Manual) Eosinophils # (Manual) Basophils # (Manual) PT INR Fibrinogen dRVVT Confirm Interp Factor V Activity POC ABG pH POC ABG pCO2 POC ABG pO2 ABG pO2 ABG HCO3 ABG Base Excess ABG Hemoglobin Oxyhemoglobin Sodium Potassium Chloride Carbon Dioxide BUN Creatinine Glucose POC Glucose 164 H 186 H 195 H Lactic Acid Calcium Phosphorus Magnesium Direct Bilirubin AST ALT Alkaline Phosphatase Lactate Dehydrogenase Troponin T C-Reactive Protein Total Protein Albumin Prealbumin Triglycerides Cholesterol LDL Cholesterol Direct HDL Cholesterol Urine pH Urine WBC (Auto) Urine Creatinine Urine Total Protein Fluid Total Protein Vancomycin Trough Rheumatoid Factor Complement C4 Miscellaneous Test Crossmatch 09/06/16 09/06/16 09/06/16 04:12 05:59 07:32 WBC RBC Hgb Hct MCV MCH MCHC RDW Plt Count Lymph % (Auto) [place] % (Auto) Lymph # [place] # Baso # Seg Neutrophils % Seg Neuts % (Manual) Lymphocytes % (Manual) Monocytes % (Manual) Eosinophils % (Manual) Basophils % (Manual) Nucleated RBC % Seg Neutrophils # Seg Neutrophils # Man Lymphocytes # (Manual) Monocytes # (Manual) Eosinophils # (Manual) Basophils # (Manual) PT INR Fibrinogen dRVVT Confirm Interp Factor V Activity POC ABG pH 7.514 H POC ABG pCO2 29.1 L POC ABG pO2 72 L ABG pO2 ABG HCO3 ABG Base Excess ABG Hemoglobin Oxyhemoglobin Sodium 133 L Potassium 3.4 L Chloride 94.9 L Carbon Dioxide 19 L BUN 30 H Creatinine 2.1 H Glucose 139 H POC Glucose 146 H Lactic Acid Calcium Phosphorus Magnesium Direct Bilirubin AST ALT Alkaline Phosphatase Lactate Dehydrogenase Troponin T C-Reactive Protein Total Protein Albumin Prealbumin Triglycerides Cholesterol LDL Cholesterol Direct HDL Cholesterol Urine pH Urine WBC (Auto) Urine Creatinine Urine Total Protein Fluid Total Protein Vancomycin Trough Rheumatoid Factor Complement C4 Miscellaneous Test Crossmatch 09/06/16 09/06/16 09/06/16 11:57 17:58 19:02 WBC RBC Hgb Hct MCV MCH MCHC RDW Plt Count Lymph % (Auto) [place] % (Auto) Lymph # [place] # Baso # Seg Neutrophils % Seg Neuts % (Manual) Lymphocytes % (Manual) Monocytes % (Manual) Eosinophils % (Manual) Basophils % (Manual) Nucleated RBC % Seg Neutrophils # Seg Neutrophils # Man Lymphocytes # (Manual) Monocytes # (Manual) Eosinophils # (Manual) Basophils # (Manual) PT INR Fibrinogen dRVVT Confirm Interp Factor V Activity POC ABG pH 7.465 H POC ABG pCO2 32.0 L POC ABG pO2 ABG pO2 ABG HCO3 ABG Base Excess ABG Hemoglobin Oxyhemoglobin Sodium Potassium Chloride Carbon Dioxide BUN Creatinine Glucose POC Glucose 165 H 160 H Lactic Acid Calcium Phosphorus Magnesium Direct Bilirubin AST ALT Alkaline Phosphatase Lactate Dehydrogenase Troponin T C-Reactive Protein Total Protein Albumin Prealbumin Triglycerides Cholesterol LDL Cholesterol Direct HDL Cholesterol Urine pH Urine WBC (Auto) Urine Creatinine Urine Total Protein Fluid Total Protein Vancomycin Trough Rheumatoid Factor Complement C4 Miscellaneous Test Crossmatch 09/06/16 09/07/16 09/07/16 23:45 02:47 02:47 WBC RBC Hgb Hct MCV MCH MCHC RDW Plt Count Lymph % (Auto) [place] % (Auto) Lymph # [place] # Baso # Seg Neutrophils % Seg Neuts % (Manual) Lymphocytes % (Manual) Monocytes % (Manual) Eosinophils % (Manual) Basophils % (Manual) Nucleated RBC % Seg Neutrophils # Seg Neutrophils # Man Lymphocytes # (Manual) Monocytes # (Manual) Eosinophils # (Manual) Basophils # (Manual) PT INR Fibrinogen dRVVT Confirm Interp Factor V Activity POC ABG pH POC ABG pCO2 POC ABG pO2 ABG pO2 ABG HCO3 ABG Base Excess ABG Hemoglobin Oxyhemoglobin Sodium Potassium Chloride Carbon Dioxide BUN Creatinine Glucose POC Glucose 204 H Lactic Acid Calcium Phosphorus Magnesium Direct Bilirubin AST ALT Alkaline Phosphatase Lactate Dehydrogenase Troponin T C-Reactive Protein Total Protein Albumin Prealbumin Triglycerides Cholesterol LDL Cholesterol Direct HDL Cholesterol Urine pH Urine WBC (Auto) 68.0 H Urine Creatinine 106.1 H Urine Total Protein Fluid Total Protein Vancomycin Trough Rheumatoid Factor Complement C4 Miscellaneous Test Crossmatch 09/07/16 09/07/16 09/07/16 04:50 06:19 06:39 WBC RBC Hgb Hct MCV MCH MCHC RDW Plt Count Lymph % (Auto) [place] % (Auto) Lymph # [place] # Baso # Seg Neutrophils % Seg Neuts % (Manual) Lymphocytes % (Manual) Monocytes % (Manual) Eosinophils % (Manual) Basophils % (Manual) Nucleated RBC % Seg Neutrophils # Seg Neutrophils # Man Lymphocytes # (Manual) Monocytes # (Manual) Eosinophils # (Manual) Basophils # (Manual) PT INR Fibrinogen dRVVT Confirm Interp Factor V Activity POC ABG pH 7.457 H POC ABG pCO2 32.1 L POC ABG pO2 76 L ABG pO2 ABG HCO3 ABG Base Excess ABG Hemoglobin Oxyhemoglobin Sodium 132 L Potassium Chloride 94.7 L Carbon Dioxide BUN 53 H Creatinine 2.9 H Glucose 151 H POC Glucose 149 H Lactic Acid Calcium Phosphorus Magnesium Direct Bilirubin AST ALT Alkaline Phosphatase Lactate Dehydrogenase Troponin T C-Reactive Protein Total Protein Albumin Prealbumin Triglycerides Cholesterol LDL Cholesterol Direct HDL Cholesterol Urine pH Urine WBC (Auto) Urine Creatinine Urine Total Protein Fluid Total Protein Vancomycin Trough Rheumatoid Factor Complement C4 Miscellaneous Test Crossmatch 09/07/16 09/07/16 09/07/16 09:20 11:43 11:43 WBC 19.4 H RBC Hgb 8.3 L Hct 26.4 L D MCV 72 L D MCH 22 L MCHC RDW 17.9 H Plt Count Lymph % (Auto) 8.5 L [place] % (Auto) Lymph # [place] # 1.0 H Baso # Seg Neutrophils % 85.8 H Seg Neuts % (Manual) Lymphocytes % (Manual) Monocytes % (Manual) Eosinophils % (Manual) Basophils % (Manual) Nucleated RBC % Seg Neutrophils # 16.6 H Seg Neutrophils # Man Lymphocytes # (Manual) Monocytes # (Manual) Eosinophils # (Manual) Basophils # (Manual) PT INR Fibrinogen dRVVT Confirm Interp Factor V Activity POC ABG pH POC ABG pCO2 POC ABG pO2 ABG pO2 ABG HCO3 ABG Base Excess ABG Hemoglobin Oxyhemoglobin Sodium 134 L Potassium Chloride 97.2 L Carbon Dioxide 20 L BUN 58 H Creatinine 2.9 H Glucose 147 H POC Glucose Lactic Acid Calcium Phosphorus 2.40 L Magnesium 2.40 H Direct Bilirubin AST ALT Alkaline Phosphatase Lactate Dehydrogenase Troponin T C-Reactive Protein Total Protein 5.8 L Albumin 2.2 L Prealbumin Triglycerides Cholesterol LDL Cholesterol Direct HDL Cholesterol Urine pH Urine WBC (Auto) Urine Creatinine Urine Total Protein Fluid Total Protein Vancomycin Trough Rheumatoid Factor Complement C4 58 H Miscellaneous Test Crossmatch 09/07/16 09/07/16 09/07/16 11:50 16:00 17:31 WBC RBC Hgb Hct MCV MCH MCHC RDW Plt Count Lymph % (Auto) [place] % (Auto) Lymph # [place] # Baso # Seg Neutrophils % Seg Neuts % (Manual) Lymphocytes % (Manual) Monocytes % (Manual) Eosinophils % (Manual) Basophils % (Manual) Nucleated RBC % Seg Neutrophils # Seg Neutrophils # Man Lymphocytes # (Manual) Monocytes # (Manual) Eosinophils # (Manual) Basophils # (Manual) PT INR Fibrinogen dRVVT Confirm Interp Factor V Activity POC ABG pH POC ABG pCO2 POC ABG pO2 158 H ABG pO2 ABG HCO3 ABG Base Excess ABG Hemoglobin Oxyhemoglobin Sodium Potassium Chloride Carbon Dioxide BUN Creatinine Glucose POC Glucose 175 H Lactic Acid Calcium Phosphorus Magnesium Direct Bilirubin AST ALT Alkaline Phosphatase Lactate Dehydrogenase Troponin T C-Reactive Protein Total Protein Albumin Prealbumin Triglycerides Cholesterol LDL Cholesterol Direct HDL Cholesterol Urine pH Urine WBC (Auto) Urine Creatinine 66.3 H Urine Total Protein Fluid Total Protein Vancomycin Trough Rheumatoid Factor Complement C4 Miscellaneous Test Crossmatch 09/07/16 09/08/16 09/08/16 23:50 05:46 06:18 WBC 17.8 H RBC 3.58 L Hgb 8.1 L Hct 25.5 L MCV 71 L MCH 23 L MCHC RDW 18.4 H Plt Count Lymph % (Auto) [place] % (Auto) Lymph # [place] # Baso # Seg Neutrophils % Seg Neuts % (Manual) 92.0 H Lymphocytes % (Manual) 6.0 L Monocytes % (Manual) Eosinophils % (Manual) Basophils % (Manual) Nucleated RBC % Seg Neutrophils # Seg Neutrophils # Man 16.4 H Lymphocytes # (Manual) 1.1 L Monocytes # (Manual) Eosinophils # (Manual) Basophils # (Manual) PT INR Fibrinogen dRVVT Confirm Interp Factor V Activity POC ABG pH POC ABG pCO2 34.3 L POC ABG pO2 71 L ABG pO2 ABG HCO3 ABG Base Excess ABG Hemoglobin Oxyhemoglobin Sodium Potassium Chloride Carbon Dioxide BUN Creatinine Glucose POC Glucose 216 H Lactic Acid Calcium Phosphorus Magnesium Direct Bilirubin AST ALT Alkaline Phosphatase Lactate Dehydrogenase Troponin T C-Reactive Protein Total Protein Albumin Prealbumin Triglycerides Cholesterol LDL Cholesterol Direct HDL Cholesterol Urine pH Urine WBC (Auto) Urine Creatinine Urine Total Protein Fluid Total Protein Vancomycin Trough Rheumatoid Factor Complement C4 Miscellaneous Test Crossmatch 09/08/16 09/08/16 09/08/16 06:18 06:51 10:55 WBC RBC Hgb Hct MCV MCH MCHC RDW Plt Count Lymph % (Auto) [place] % (Auto) Lymph # [place] # Baso # Seg Neutrophils % Seg Neuts % (Manual) Lymphocytes % (Manual) Monocytes % (Manual) Eosinophils % (Manual) Basophils % (Manual) Nucleated RBC % Seg Neutrophils # Seg Neutrophils # Man Lymphocytes # (Manual) Monocytes # (Manual) Eosinophils # (Manual) Basophils # (Manual) PT INR Fibrinogen dRVVT Confirm Interp Factor V Activity POC ABG pH POC ABG pCO2 POC ABG pO2 ABG pO2 ABG HCO3 ABG Base Excess ABG Hemoglobin Oxyhemoglobin Sodium 133 L Potassium Chloride 96.9 L Carbon Dioxide 20 L BUN 63 H Creatinine 2.7 H Glucose 195 H POC Glucose 204 H 169 H Lactic Acid Calcium Phosphorus Magnesium Direct Bilirubin AST ALT Alkaline Phosphatase Lactate Dehydrogenase Troponin T C-Reactive Protein Total Protein Albumin Prealbumin Triglycerides Cholesterol LDL Cholesterol Direct HDL Cholesterol Urine pH Urine WBC (Auto) Urine Creatinine Urine Total Protein Fluid Total Protein Vancomycin Trough Rheumatoid Factor Complement C4 Miscellaneous Test Crossmatch 09/08/16 09/08/16 09/08/16 11:48 11:48 11:48 WBC RBC Hgb Hct MCV MCH MCHC RDW Plt Count Lymph % (Auto) [place] % (Auto) Lymph # [place] # Baso # Seg Neutrophils % Seg Neuts % (Manual) Lymphocytes % (Manual) Monocytes % (Manual) Eosinophils % (Manual) Basophils % (Manual) Nucleated RBC % Seg Neutrophils # Seg Neutrophils # Man Lymphocytes # (Manual) Monocytes # (Manual) Eosinophils # (Manual) Basophils # (Manual) PT INR Fibrinogen 750 H dRVVT Confirm Interp Factor V Activity POC ABG pH POC ABG pCO2 POC ABG pO2 ABG pO2 ABG HCO3 ABG Base Excess ABG Hemoglobin Oxyhemoglobin Sodium Potassium Chloride Carbon Dioxide BUN Creatinine Glucose POC Glucose Lactic Acid Calcium Phosphorus Magnesium Direct Bilirubin AST ALT Alkaline Phosphatase Lactate Dehydrogenase Troponin T C-Reactive Protein 15.70 H Total Protein Albumin Prealbumin Triglycerides Cholesterol LDL Cholesterol Direct HDL Cholesterol Urine pH Urine WBC (Auto) Urine Creatinine Urine Total Protein Fluid Total Protein Vancomycin Trough Rheumatoid Factor 24 H Complement C4 Miscellaneous Test Crossmatch 09/08/16 09/08/16 09/09/16 15:35 18:25 00:24 WBC RBC Hgb Hct MCV MCH MCHC RDW Plt Count Lymph % (Auto) [place] % (Auto) Lymph # [place] # Baso # Seg Neutrophils % Seg Neuts % (Manual) Lymphocytes % (Manual) Monocytes % (Manual) Eosinophils % (Manual) Basophils % (Manual) Nucleated RBC % Seg Neutrophils # Seg Neutrophils # Man Lymphocytes # (Manual) Monocytes # (Manual) Eosinophils # (Manual) Basophils # (Manual) PT INR Fibrinogen dRVVT Confirm Interp Factor V Activity 182 H POC ABG pH POC ABG pCO2 POC ABG pO2 ABG pO2 ABG HCO3 ABG Base Excess ABG Hemoglobin Oxyhemoglobin Sodium Potassium Chloride Carbon Dioxide BUN Creatinine Glucose POC Glucose 184 H 216 H Lactic Acid Calcium Phosphorus Magnesium Direct Bilirubin AST ALT Alkaline Phosphatase Lactate Dehydrogenase Troponin T C-Reactive Protein Total Protein Albumin Prealbumin Triglycerides Cholesterol LDL Cholesterol Direct HDL Cholesterol Urine pH Urine WBC (Auto) Urine Creatinine Urine Total Protein Fluid Total Protein Vancomycin Trough Rheumatoid Factor Complement C4 Miscellaneous Test Crossmatch 09/09/16 09/09/16 09/09/16 03:00 03:00 04:04 WBC 27.9 H RBC Hgb 8.7 L Hct 28.1 L MCV 72 L MCH 22 L MCHC RDW 18.4 H Plt Count 485 H Lymph % (Auto) [place] % (Auto) Lymph # [place] # Baso # Seg Neutrophils % Seg Neuts % (Manual) 77.0 H Lymphocytes % (Manual) 9.0 L Monocytes % (Manual) Eosinophils % (Manual) Basophils % (Manual) Nucleated RBC % Seg Neutrophils # Seg Neutrophils # Man 21.5 H Lymphocytes # (Manual) Monocytes # (Manual) 2.0 H Eosinophils # (Manual) Basophils # (Manual) PT INR Fibrinogen dRVVT Confirm Interp Factor V Activity POC ABG pH POC ABG pCO2 POC ABG pO2 121 H ABG pO2 ABG HCO3 ABG Base Excess ABG Hemoglobin Oxyhemoglobin Sodium 135 L Potassium Chloride 96.3 L Carbon Dioxide 21 L BUN 83 H Creatinine 3.0 H Glucose 135 H POC Glucose Lactic Acid Calcium Phosphorus Magnesium Direct Bilirubin AST ALT Alkaline Phosphatase Lactate Dehydrogenase Troponin T C-Reactive Protein Total Protein Albumin Prealbumin Triglycerides Cholesterol LDL Cholesterol Direct HDL Cholesterol Urine pH Urine WBC (Auto) Urine Creatinine Urine Total Protein Fluid Total Protein Vancomycin Trough Rheumatoid Factor Complement C4 Miscellaneous Test Crossmatch 09/09/16 09/09/16 09/09/16 05:41 11:55 14:13 WBC RBC Hgb Hct MCV MCH MCHC RDW Plt Count Lymph % (Auto) [place] % (Auto) Lymph # [place] # Baso # Seg Neutrophils % Seg Neuts % (Manual) Lymphocytes % (Manual) Monocytes % (Manual) Eosinophils % (Manual) Basophils % (Manual) Nucleated RBC % Seg Neutrophils # Seg Neutrophils # Man Lymphocytes # (Manual) Monocytes # (Manual) Eosinophils # (Manual) Basophils # (Manual) PT INR Fibrinogen dRVVT Confirm Interp Factor V Activity POC ABG pH POC ABG pCO2 POC ABG pO2 ABG pO2 ABG HCO3 ABG Base Excess ABG Hemoglobin Oxyhemoglobin Sodium Potassium Chloride Carbon Dioxide BUN Creatinine Glucose POC Glucose 155 H 186 H Lactic Acid Calcium Phosphorus Magnesium Direct Bilirubin AST ALT Alkaline Phosphatase Lactate Dehydrogenase Troponin T C-Reactive Protein Total Protein Albumin Prealbumin Triglycerides Cholesterol LDL Cholesterol Direct HDL Cholesterol Urine pH Urine WBC (Auto) 25.0 H Urine Creatinine Urine Total Protein Fluid Total Protein Vancomycin Trough Rheumatoid Factor Complement C4 Miscellaneous Test Crossmatch 09/09/16 09/09/16 09/10/16 17:33 23:13 05:09 WBC RBC Hgb Hct MCV MCH MCHC RDW Plt Count Lymph % (Auto) [place] % (Auto) Lymph # [place] # Baso # Seg Neutrophils % Seg Neuts % (Manual) Lymphocytes % (Manual) Monocytes % (Manual) Eosinophils % (Manual) Basophils % (Manual) Nucleated RBC % Seg Neutrophils # Seg Neutrophils # Man Lymphocytes # (Manual) Monocytes # (Manual) Eosinophils # (Manual) Basophils # (Manual) PT INR Fibrinogen dRVVT Confirm Interp Factor V Activity POC ABG pH POC ABG pCO2 POC ABG pO2 74 L ABG pO2 ABG HCO3 ABG Base Excess ABG Hemoglobin Oxyhemoglobin Sodium Potassium Chloride Carbon Dioxide BUN Creatinine Glucose POC Glucose 211 H 215 H Lactic Acid Calcium Phosphorus Magnesium Direct Bilirubin AST ALT Alkaline Phosphatase Lactate Dehydrogenase Troponin T C-Reactive Protein Total Protein Albumin Prealbumin Triglycerides Cholesterol LDL Cholesterol Direct HDL Cholesterol Urine pH Urine WBC (Auto) Urine Creatinine Urine Total Protein Fluid Total Protein Vancomycin Trough Rheumatoid Factor Complement C4 Miscellaneous Test Crossmatch 09/10/16 09/10/16 09/10/16 05:17 05:17 11:31 WBC 15.8 H RBC 3.25 L Hgb 7.3 L Hct 22.9 L MCV 71 L MCH 23 L MCHC RDW 18.4 H Plt Count Lymph % (Auto) [place] % (Auto) Lymph # [place] # Baso # Seg Neutrophils % Seg Neuts % (Manual) 91.0 H Lymphocytes % (Manual) 4.0 L Monocytes % (Manual) Eosinophils % (Manual) Basophils % (Manual) Nucleated RBC % Seg Neutrophils # Seg Neutrophils # Man 14.4 H Lymphocytes # (Manual) 0.6 L Monocytes # (Manual) Eosinophils # (Manual) Basophils # (Manual) PT INR Fibrinogen dRVVT Confirm Interp Factor V Activity POC ABG pH POC ABG pCO2 POC ABG pO2 ABG pO2 ABG HCO3 ABG Base Excess ABG Hemoglobin Oxyhemoglobin Sodium Potassium Chloride Carbon Dioxide 21 L BUN 93 H Creatinine 2.9 H Glucose 146 H POC Glucose 188 H Lactic Acid Calcium 8.1 L Phosphorus Magnesium Direct Bilirubin AST ALT Alkaline Phosphatase Lactate Dehydrogenase Troponin T C-Reactive Protein Total Protein Albumin Prealbumin Triglycerides Cholesterol LDL Cholesterol Direct HDL Cholesterol Urine pH Urine WBC (Auto) Urine Creatinine Urine Total Protein Fluid Total Protein Vancomycin Trough Rheumatoid Factor Complement C4 Miscellaneous Test Crossmatch 09/10/16 09/10/16 09/10/16 13:17 17:20 23:32 WBC RBC Hgb Hct MCV MCH MCHC RDW Plt Count Lymph % (Auto) [place] % (Auto) Lymph # [place] # Baso # Seg Neutrophils % Seg Neuts % (Manual) Lymphocytes % (Manual) Monocytes % (Manual) Eosinophils % (Manual) Basophils % (Manual) Nucleated RBC % Seg Neutrophils # Seg Neutrophils # Man Lymphocytes # (Manual) Monocytes # (Manual) Eosinophils # (Manual) Basophils # (Manual) PT INR Fibrinogen dRVVT Confirm Interp Factor V Activity POC ABG pH POC ABG pCO2 POC ABG pO2 ABG pO2 ABG HCO3 ABG Base Excess ABG Hemoglobin Oxyhemoglobin Sodium Potassium Chloride Carbon Dioxide BUN Creatinine Glucose POC Glucose 199 H 186 H Lactic Acid Calcium Phosphorus Magnesium Direct Bilirubin AST ALT Alkaline Phosphatase Lactate Dehydrogenase Troponin T C-Reactive Protein Total Protein Albumin Prealbumin Triglycerides Cholesterol LDL Cholesterol Direct HDL Cholesterol Urine pH Urine WBC (Auto) Urine Creatinine Urine Total Protein Fluid Total Protein Vancomycin Trough Rheumatoid Factor Complement C4 Miscellaneous Test Crossmatch See Detail 09/11/16 09/11/16 09/11/16 05:10 05:10 05:17 WBC 28.4 H RBC Hgb 9.2 L Hct 29.3 L D MCV 73 L MCH 23 L MCHC RDW 18.9 H Plt Count 452 H Lymph % (Auto) [place] % (Auto) Lymph # [place] # Baso # Seg Neutrophils % Seg Neuts % (Manual) 89.5 H Lymphocytes % (Manual) 2.0 L Monocytes % (Manual) Eosinophils % (Manual) Basophils % (Manual) Nucleated RBC % Seg Neutrophils # Seg Neutrophils # Man 25.4 H Lymphocytes # (Manual) 0.6 L Monocytes # (Manual) 1.3 H Eosinophils # (Manual) Basophils # (Manual) PT INR Fibrinogen dRVVT Confirm Interp Factor V Activity POC ABG pH POC ABG pCO2 POC ABG pO2 ABG pO2 ABG HCO3 ABG Base Excess ABG Hemoglobin Oxyhemoglobin Sodium 136 L Potassium Chloride Carbon Dioxide 18 L BUN 107 H Creatinine 2.6 H Glucose 187 H POC Glucose 230 H Lactic Acid Calcium 8.3 L Phosphorus Magnesium Direct Bilirubin AST ALT Alkaline Phosphatase Lactate Dehydrogenase Troponin T C-Reactive Protein Total Protein Albumin Prealbumin Triglycerides Cholesterol LDL Cholesterol Direct HDL Cholesterol Urine pH Urine WBC (Auto) Urine Creatinine Urine Total Protein Fluid Total Protein Vancomycin Trough Rheumatoid Factor Complement C4 Miscellaneous Test Crossmatch 09/11/16 09/11/16 09/11/16 05:55 12:02 17:32 WBC RBC Hgb Hct MCV MCH MCHC RDW Plt Count Lymph % (Auto) [place] % (Auto) Lymph # [place] # Baso # Seg Neutrophils % Seg Neuts % (Manual) Lymphocytes % (Manual) Monocytes % (Manual) Eosinophils % (Manual) Basophils % (Manual) Nucleated RBC % Seg Neutrophils # Seg Neutrophils # Man Lymphocytes # (Manual) Monocytes # (Manual) Eosinophils # (Manual) Basophils # (Manual) PT INR Fibrinogen dRVVT Confirm Interp Factor V Activity POC ABG pH POC ABG pCO2 33.8 L POC ABG pO2 ABG pO2 ABG HCO3 ABG Base Excess ABG Hemoglobin Oxyhemoglobin Sodium Potassium Chloride Carbon Dioxide BUN Creatinine Glucose POC Glucose 191 H 239 H Lactic Acid Calcium Phosphorus Magnesium Direct Bilirubin AST ALT Alkaline Phosphatase Lactate Dehydrogenase Troponin T C-Reactive Protein Total Protein Albumin Prealbumin Triglycerides Cholesterol LDL Cholesterol Direct HDL Cholesterol Urine pH Urine WBC (Auto) Urine Creatinine Urine Total Protein Fluid Total Protein Vancomycin Trough Rheumatoid Factor Complement C4 Miscellaneous Test Crossmatch 09/11/16 09/12/16 09/12/16 23:52 05:09 05:32 WBC RBC Hgb Hct MCV MCH MCHC RDW Plt Count Lymph % (Auto) [place] % (Auto) Lymph # [place] # Baso # Seg Neutrophils % Seg Neuts % (Manual) Lymphocytes % (Manual) Monocytes % (Manual) Eosinophils % (Manual) Basophils % (Manual) Nucleated RBC % Seg Neutrophils # Seg Neutrophils # Man Lymphocytes # (Manual) Monocytes # (Manual) Eosinophils # (Manual) Basophils # (Manual) PT INR Fibrinogen dRVVT Confirm Interp Factor V Activity POC ABG pH POC ABG pCO2 34.6 L POC ABG pO2 ABG pO2 ABG HCO3 ABG Base Excess ABG Hemoglobin Oxyhemoglobin Sodium Potassium Chloride Carbon Dioxide BUN Creatinine Glucose POC Glucose 265 H 184 H Lactic Acid Calcium Phosphorus Magnesium Direct Bilirubin AST ALT Alkaline Phosphatase Lactate Dehydrogenase Troponin T C-Reactive Protein Total Protein Albumin Prealbumin Triglycerides Cholesterol LDL Cholesterol Direct HDL Cholesterol Urine pH Urine WBC (Auto) Urine Creatinine Urine Total Protein Fluid Total Protein Vancomycin Trough Rheumatoid Factor Complement C4 Miscellaneous Test Crossmatch 09/12/16 09/12/16 09/12/16 06:45 06:45 07:22 WBC 31.7 H RBC 3.54 L Hgb 8.3 L Hct 25.9 L MCV 73 L MCH 23 L MCHC RDW 18.9 H Plt Count Lymph % (Auto) [place] % (Auto) Lymph # [place] # Baso # Seg Neutrophils % Seg Neuts % (Manual) 88.5 H Lymphocytes % (Manual) 4.5 L Monocytes % (Manual) Eosinophils % (Manual) Basophils % (Manual) Nucleated RBC % Seg Neutrophils # Seg Neutrophils # Man 28.1 H Lymphocytes # (Manual) Monocytes # (Manual) 1.0 H Eosinophils # (Manual) Basophils # (Manual) PT INR Fibrinogen dRVVT Confirm Interp Factor V Activity POC ABG pH POC ABG pCO2 POC ABG pO2 ABG pO2 ABG HCO3 ABG Base Excess ABG Hemoglobin Oxyhemoglobin Sodium Potassium Chloride Carbon Dioxide 20 L BUN 115 H Creatinine 2.7 H Glucose 165 H POC Glucose Lactic Acid Calcium 8.0 L Phosphorus Magnesium Direct Bilirubin AST ALT Alkaline Phosphatase Lactate Dehydrogenase Troponin T C-Reactive Protein Total Protein Albumin Prealbumin Triglycerides 217 H Cholesterol LDL Cholesterol Direct HDL Cholesterol Urine pH Urine WBC (Auto) Urine Creatinine Urine Total Protein Fluid Total Protein Vancomycin Trough Rheumatoid Factor Complement C4 Miscellaneous Test Crossmatch 09/12/16 09/12/16 09/12/16 07:22 09:59 12:21 WBC RBC Hgb Hct MCV MCH MCHC RDW Plt Count Lymph % (Auto) [place] % (Auto) Lymph # [place] # Baso # Seg Neutrophils % Seg Neuts % (Manual) Lymphocytes % (Manual) Monocytes % (Manual) Eosinophils % (Manual) Basophils % (Manual) Nucleated RBC % Seg Neutrophils # Seg Neutrophils # Man Lymphocytes # (Manual) Monocytes # (Manual) Eosinophils # (Manual) Basophils # (Manual) PT INR Fibrinogen dRVVT Confirm Interp Positive H Factor V Activity POC ABG pH POC ABG pCO2 POC ABG pO2 ABG pO2 ABG HCO3 ABG Base Excess ABG Hemoglobin Oxyhemoglobin Sodium Potassium Chloride Carbon Dioxide BUN Creatinine Glucose POC Glucose 224 H Lactic Acid Calcium Phosphorus Magnesium Direct Bilirubin AST ALT Alkaline Phosphatase Lactate Dehydrogenase Troponin T C-Reactive Protein 1.70 H Total Protein Albumin Prealbumin Triglycerides Cholesterol LDL Cholesterol Direct HDL Cholesterol Urine pH Urine WBC (Auto) Urine Creatinine Urine Total Protein Fluid Total Protein Vancomycin Trough Rheumatoid Factor Complement C4 Miscellaneous Test Crossmatch 09/12/16 09/12/16 09/13/16 16:51 23:28 04:00 WBC 45.0 H* RBC Hgb 9.4 L Hct MCV 75 L MCH 23 L MCHC RDW 19.0 H Plt Count 470 H Lymph % (Auto) [place] % (Auto) Lymph # [place] # Baso # Seg Neutrophils % Seg Neuts % (Manual) 89.0 H Lymphocytes % (Manual) 5.0 L Monocytes % (Manual) Eosinophils % (Manual) Basophils % (Manual) Nucleated RBC % Seg Neutrophils # Seg Neutrophils # Man 40.1 H Lymphocytes # (Manual) Monocytes # (Manual) Eosinophils # (Manual) Basophils # (Manual) PT INR Fibrinogen dRVVT Confirm Interp Factor V Activity POC ABG pH POC ABG pCO2 POC ABG pO2 ABG pO2 ABG HCO3 ABG Base Excess ABG Hemoglobin Oxyhemoglobin Sodium Potassium Chloride Carbon Dioxide BUN Creatinine Glucose POC Glucose 169 H 150 H Lactic Acid Calcium Phosphorus Magnesium Direct Bilirubin AST ALT Alkaline Phosphatase Lactate Dehydrogenase Troponin T C-Reactive Protein Total Protein Albumin Prealbumin Triglycerides Cholesterol LDL Cholesterol Direct HDL Cholesterol Urine pH Urine WBC (Auto) Urine Creatinine Urine Total Protein Fluid Total Protein Vancomycin Trough Rheumatoid Factor Complement C4 Miscellaneous Test Crossmatch 09/13/16 09/13/16 09/13/16 04:00 11:26 17:31 WBC RBC Hgb Hct MCV MCH MCHC RDW Plt Count Lymph % (Auto) [place] % (Auto) Lymph # [place] # Baso # Seg Neutrophils % Seg Neuts % (Manual) Lymphocytes % (Manual) Monocytes % (Manual) Eosinophils % (Manual) Basophils % (Manual) Nucleated RBC % Seg Neutrophils # Seg Neutrophils # Man Lymphocytes # (Manual) Monocytes # (Manual) Eosinophils # (Manual) Basophils # (Manual) PT INR Fibrinogen dRVVT Confirm Interp Factor V Activity POC ABG pH POC ABG pCO2 POC ABG pO2 ABG pO2 ABG HCO3 ABG Base Excess ABG Hemoglobin Oxyhemoglobin Sodium Potassium Chloride Carbon Dioxide 20 L BUN 116 H Creatinine 3.0 H Glucose 172 H POC Glucose 140 H 183 H Lactic Acid Calcium Phosphorus Magnesium Direct Bilirubin AST ALT Alkaline Phosphatase Lactate Dehydrogenase Troponin T C-Reactive Protein Total Protein 6.2 L Albumin 2.9 L Prealbumin Triglycerides Cholesterol LDL Cholesterol Direct HDL Cholesterol Urine pH Urine WBC (Auto) Urine Creatinine Urine Total Protein Fluid Total Protein Vancomycin Trough Rheumatoid Factor Complement C4 Miscellaneous Test Crossmatch 09/13/16 09/14/16 09/14/16 23:23 04:06 04:07 WBC 29.4 H RBC Hgb 8.9 L Hct 27.3 L MCV 75 L MCH 24 L MCHC RDW 19.1 H Plt Count Lymph % (Auto) [place] % (Auto) Lymph # [place] # Baso # Seg Neutrophils % Seg Neuts % (Manual) 84.0 H Lymphocytes % (Manual) 6.0 L Monocytes % (Manual) 9.0 H Eosinophils % (Manual) Basophils % (Manual) Nucleated RBC % Seg Neutrophils # Seg Neutrophils # Man 24.7 H Lymphocytes # (Manual) Monocytes # (Manual) 2.6 H Eosinophils # (Manual) Basophils # (Manual) PT INR Fibrinogen dRVVT Confirm Interp Factor V Activity POC ABG pH 7.342 L POC ABG pCO2 POC ABG pO2 116 H ABG pO2 ABG HCO3 ABG Base Excess ABG Hemoglobin Oxyhemoglobin Sodium Potassium Chloride Carbon Dioxide BUN Creatinine Glucose POC Glucose 154 H Lactic Acid Calcium Phosphorus Magnesium Direct Bilirubin AST ALT Alkaline Phosphatase Lactate Dehydrogenase Troponin T C-Reactive Protein Total Protein Albumin Prealbumin Triglycerides Cholesterol LDL Cholesterol Direct HDL Cholesterol Urine pH Urine WBC (Auto) Urine Creatinine Urine Total Protein Fluid Total Protein Vancomycin Trough Rheumatoid Factor Complement C4 Miscellaneous Test Crossmatch 09/14/16 09/14/16 09/14/16 04:07 05:29 12:19 WBC RBC Hgb Hct MCV MCH MCHC RDW Plt Count Lymph % (Auto) [place] % (Auto) Lymph # [place] # Baso # Seg Neutrophils % Seg Neuts % (Manual) Lymphocytes % (Manual) Monocytes % (Manual) Eosinophils % (Manual) Basophils % (Manual) Nucleated RBC % Seg Neutrophils # Seg Neutrophils # Man Lymphocytes # (Manual) Monocytes # (Manual) Eosinophils # (Manual) Basophils # (Manual) PT INR Fibrinogen dRVVT Confirm Interp Factor V Activity POC ABG pH POC ABG pCO2 POC ABG pO2 ABG pO2 ABG HCO3 ABG Base Excess ABG Hemoglobin Oxyhemoglobin Sodium 136 L Potassium Chloride Carbon Dioxide 18 L BUN 121 H Creatinine 2.8 H Glucose 214 H POC Glucose 239 H 181 H Lactic Acid Calcium Phosphorus Magnesium Direct Bilirubin AST ALT Alkaline Phosphatase Lactate Dehydrogenase Troponin T C-Reactive Protein Total Protein Albumin Prealbumin Triglycerides Cholesterol LDL Cholesterol Direct HDL Cholesterol Urine pH Urine WBC (Auto) Urine Creatinine Urine Total Protein Fluid Total Protein Vancomycin Trough Rheumatoid Factor Complement C4 Miscellaneous Test Crossmatch 09/14/16 09/14/16 09/15/16 18:12 23:37 05:00 WBC 26.1 H RBC 3.05 L Hgb 7.2 L Hct 22.9 L MCV 75 L MCH 24 L MCHC RDW 19.0 H Plt Count Lymph % (Auto) [place] % (Auto) Lymph # [place] # Baso # Seg Neutrophils % Seg Neuts % (Manual) Lymphocytes % (Manual) Monocytes % (Manual) Eosinophils % (Manual) Basophils % (Manual) Nucleated RBC % Seg Neutrophils # Seg Neutrophils # Man Lymphocytes # (Manual) Monocytes # (Manual) Eosinophils # (Manual) Basophils # (Manual) PT INR Fibrinogen dRVVT Confirm Interp Factor V Activity POC ABG pH POC ABG pCO2 POC ABG pO2 ABG pO2 ABG HCO3 ABG Base Excess ABG Hemoglobin Oxyhemoglobin Sodium Potassium Chloride Carbon Dioxide BUN Creatinine Glucose POC Glucose 266 H 154 H Lactic Acid Calcium Phosphorus Magnesium Direct Bilirubin AST ALT Alkaline Phosphatase Lactate Dehydrogenase Troponin T C-Reactive Protein Total Protein Albumin Prealbumin Triglycerides Cholesterol LDL Cholesterol Direct HDL Cholesterol Urine pH Urine WBC (Auto) Urine Creatinine Urine Total Protein Fluid Total Protein Vancomycin Trough Rheumatoid Factor Complement C4 Miscellaneous Test Crossmatch 09/15/16 09/15/16 09/15/16 05:00 05:17 12:45 WBC RBC Hgb Hct MCV MCH MCHC RDW Plt Count Lymph % (Auto) [place] % (Auto) Lymph # [place] # Baso # Seg Neutrophils % Seg Neuts % (Manual) Lymphocytes % (Manual) Monocytes % (Manual) Eosinophils % (Manual) Basophils % (Manual) Nucleated RBC % Seg Neutrophils # Seg Neutrophils # Man Lymphocytes # (Manual) Monocytes # (Manual) Eosinophils # (Manual) Basophils # (Manual) PT INR Fibrinogen dRVVT Confirm Interp Factor V Activity POC ABG pH POC ABG pCO2 POC ABG pO2 ABG pO2 ABG HCO3 ABG Base Excess ABG Hemoglobin Oxyhemoglobin Sodium Potassium 5.2 H Chloride Carbon Dioxide 18 L BUN 139 H Creatinine 3.7 H Glucose 227 H POC Glucose 226 H 244 H Lactic Acid Calcium 8.3 L Phosphorus Magnesium Direct Bilirubin AST ALT Alkaline Phosphatase Lactate Dehydrogenase Troponin T C-Reactive Protein Total Protein Albumin Prealbumin Triglycerides Cholesterol LDL Cholesterol Direct HDL Cholesterol Urine pH Urine WBC (Auto) Urine Creatinine Urine Total Protein Fluid Total Protein Vancomycin Trough Rheumatoid Factor Complement C4 Miscellaneous Test Crossmatch 09/15/16 09/15/16 09/15/16 14:32 17:33 23:35 WBC RBC Hgb Hct MCV MCH MCHC RDW Plt Count Lymph % (Auto) [place] % (Auto) Lymph # [place] # Baso # Seg Neutrophils % Seg Neuts % (Manual) Lymphocytes % (Manual) Monocytes % (Manual) Eosinophils % (Manual) Basophils % (Manual) Nucleated RBC % Seg Neutrophils # Seg Neutrophils # Man Lymphocytes # (Manual) Monocytes # (Manual) Eosinophils # (Manual) Basophils # (Manual) PT INR Fibrinogen dRVVT Confirm Interp Factor V Activity POC ABG pH POC ABG pCO2 27.7 L POC ABG pO2 120 H ABG pO2 ABG HCO3 ABG Base Excess ABG Hemoglobin Oxyhemoglobin Sodium Potassium Chloride Carbon Dioxide BUN Creatinine Glucose POC Glucose 232 H 167 H Lactic Acid Calcium Phosphorus Magnesium Direct Bilirubin AST ALT Alkaline Phosphatase Lactate Dehydrogenase Troponin T C-Reactive Protein Total Protein Albumin Prealbumin Triglycerides Cholesterol LDL Cholesterol Direct HDL Cholesterol Urine pH Urine WBC (Auto) Urine Creatinine Urine Total Protein Fluid Total Protein Vancomycin Trough Rheumatoid Factor Complement C4 Miscellaneous Test Crossmatch 09/16/16 09/16/16 09/16/16 03:58 10:27 10:27 WBC 19.0 H RBC 2.77 L Hgb 6.5 L Hct 20.9 L MCV 76 L MCH 23 L MCHC RDW 19.3 H Plt Count Lymph % (Auto) 11.0 L [place] % (Auto) Lymph # [place] # 1.1 H Baso # Seg Neutrophils % 82.5 H Seg Neuts % (Manual) Lymphocytes % (Manual) Monocytes % (Manual) Eosinophils % (Manual) Basophils % (Manual) Nucleated RBC % Seg Neutrophils # 15.7 H Seg Neutrophils # Man Lymphocytes # (Manual) Monocytes # (Manual) Eosinophils # (Manual) Basophils # (Manual) PT INR Fibrinogen dRVVT Confirm Interp Factor V Activity POC ABG pH POC ABG pCO2 POC ABG pO2 ABG pO2 ABG HCO3 ABG Base Excess ABG Hemoglobin Oxyhemoglobin Sodium Potassium Chloride 109.3 H Carbon Dioxide 18 L BUN 139 H Creatinine 4.1 H Glucose 144 H POC Glucose 146 H Lactic Acid Calcium 8.1 L Phosphorus Magnesium Direct Bilirubin AST ALT Alkaline Phosphatase Lactate Dehydrogenase Troponin T C-Reactive Protein Total Protein Albumin Prealbumin Triglycerides Cholesterol LDL Cholesterol Direct HDL Cholesterol Urine pH Urine WBC (Auto) Urine Creatinine Urine Total Protein Fluid Total Protein Vancomycin Trough Rheumatoid Factor Complement C4 Miscellaneous Test Crossmatch 09/16/16 09/16/16 09/16/16 12:04 12:10 13:55 WBC RBC Hgb Hct MCV MCH MCHC RDW Plt Count Lymph % (Auto) [place] % (Auto) Lymph # [place] # Baso # Seg Neutrophils % Seg Neuts % (Manual) Lymphocytes % (Manual) Monocytes % (Manual) Eosinophils % (Manual) Basophils % (Manual) Nucleated RBC % Seg Neutrophils # Seg Neutrophils # Man Lymphocytes # (Manual) Monocytes # (Manual) Eosinophils # (Manual) Basophils # (Manual) PT INR Fibrinogen dRVVT Confirm Interp Factor V Activity POC ABG pH POC ABG pCO2 32.9 L POC ABG pO2 ABG pO2 ABG HCO3 ABG Base Excess ABG Hemoglobin Oxyhemoglobin Sodium Potassium Chloride Carbon Dioxide BUN Creatinine Glucose POC Glucose 185 H Lactic Acid Calcium Phosphorus Magnesium Direct Bilirubin AST ALT Alkaline Phosphatase Lactate Dehydrogenase Troponin T C-Reactive Protein Total Protein Albumin Prealbumin Triglycerides Cholesterol LDL Cholesterol Direct HDL Cholesterol Urine pH Urine WBC (Auto) Urine Creatinine Urine Total Protein Fluid Total Protein Vancomycin Trough Rheumatoid Factor Complement C4 Miscellaneous Test Crossmatch See Detail 09/16/16 09/16/16 09/16/16 17:55 19:19 23:48 WBC RBC Hgb Hct MCV MCH MCHC RDW Plt Count Lymph % (Auto) [place] % (Auto) Lymph # [place] # Baso # Seg Neutrophils % Seg Neuts % (Manual) Lymphocytes % (Manual) Monocytes % (Manual) Eosinophils % (Manual) Basophils % (Manual) Nucleated RBC % Seg Neutrophils # Seg Neutrophils # Man Lymphocytes # (Manual) Monocytes # (Manual) Eosinophils # (Manual) Basophils # (Manual) PT INR Fibrinogen dRVVT Confirm Interp Factor V Activity POC ABG pH POC ABG pCO2 POC ABG pO2 ABG pO2 ABG HCO3 ABG Base Excess ABG Hemoglobin Oxyhemoglobin Sodium Potassium Chloride Carbon Dioxide BUN Creatinine Glucose POC Glucose 222 H 107 H Lactic Acid Calcium Phosphorus Magnesium Direct Bilirubin AST ALT Alkaline Phosphatase Lactate Dehydrogenase Troponin T C-Reactive Protein Total Protein Albumin Prealbumin Triglycerides Cholesterol LDL Cholesterol Direct HDL Cholesterol Urine pH Urine WBC (Auto) Urine Creatinine 47.4 H Urine Total Protein 16 H Fluid Total Protein Vancomycin Trough Rheumatoid Factor Complement C4 Miscellaneous Test Crossmatch 09/17/16 09/17/16 09/17/16 03:45 03:45 04:55 WBC 19.6 H RBC 3.41 L Hgb 8.5 L Hct 26.7 L MCV 78 L MCH 25 L MCHC RDW 19.9 H Plt Count Lymph % (Auto) 9.3 L [place] % (Auto) Lymph # [place] # 1.2 H Baso # Seg Neutrophils % 83.9 H Seg Neuts % (Manual) Lymphocytes % (Manual) Monocytes % (Manual) Eosinophils % (Manual) Basophils % (Manual) Nucleated RBC % Seg Neutrophils # 16.4 H Seg Neutrophils # Man Lymphocytes # (Manual) Monocytes # (Manual) Eosinophils # (Manual) Basophils # (Manual) PT INR Fibrinogen dRVVT Confirm Interp Factor V Activity POC ABG pH POC ABG pCO2 POC ABG pO2 ABG pO2 ABG HCO3 ABG Base Excess ABG Hemoglobin Oxyhemoglobin Sodium 146 H Potassium 5.1 H Chloride 110.9 H Carbon Dioxide 16 L BUN 146 H Creatinine 4.0 H Glucose 108 H POC Glucose 133 H Lactic Acid Calcium Phosphorus Magnesium 3.00 H Direct Bilirubin AST ALT Alkaline Phosphatase Lactate Dehydrogenase Troponin T C-Reactive Protein Total Protein Albumin Prealbumin Triglycerides Cholesterol LDL Cholesterol Direct HDL Cholesterol Urine pH Urine WBC (Auto) Urine Creatinine Urine Total Protein Fluid Total Protein Vancomycin Trough Rheumatoid Factor Complement C4 Miscellaneous Test Crossmatch 09/17/16 09/17/16 09/17/16 11:15 17:33 23:47 WBC RBC Hgb Hct MCV MCH MCHC RDW Plt Count Lymph % (Auto) [place] % (Auto) Lymph # [place] # Baso # Seg Neutrophils % Seg Neuts % (Manual) Lymphocytes % (Manual) Monocytes % (Manual) Eosinophils % (Manual) Basophils % (Manual) Nucleated RBC % Seg Neutrophils # Seg Neutrophils # Man Lymphocytes # (Manual) Monocytes # (Manual) Eosinophils # (Manual) Basophils # (Manual) PT INR Fibrinogen dRVVT Confirm Interp Factor V Activity POC ABG pH POC ABG pCO2 POC ABG pO2 ABG pO2 ABG HCO3 ABG Base Excess ABG Hemoglobin Oxyhemoglobin Sodium Potassium Chloride Carbon Dioxide BUN Creatinine Glucose POC Glucose 176 H 246 H 148 H Lactic Acid Calcium Phosphorus Magnesium Direct Bilirubin AST ALT Alkaline Phosphatase Lactate Dehydrogenase Troponin T C-Reactive Protein Total Protein Albumin Prealbumin Triglycerides Cholesterol LDL Cholesterol Direct HDL Cholesterol Urine pH Urine WBC (Auto) Urine Creatinine Urine Total Protein Fluid Total Protein Vancomycin Trough Rheumatoid Factor Complement C4 Miscellaneous Test Crossmatch 09/18/16 09/18/16 09/18/16 05:33 08:31 08:31 WBC 18.0 H RBC 3.17 L Hgb 9.0 L Hct 25.7 L MCV MCH MCHC 35 H RDW 20.4 H Plt Count Lymph % (Auto) [place] % (Auto) Lymph # [place] # Baso # Seg Neutrophils % Seg Neuts % (Manual) Lymphocytes % (Manual) Monocytes % (Manual) Eosinophils % (Manual) Basophils % (Manual) Nucleated RBC % Seg Neutrophils # Seg Neutrophils # Man Lymphocytes # (Manual) Monocytes # (Manual) Eosinophils # (Manual) Basophils # (Manual) PT INR Fibrinogen dRVVT Confirm Interp Factor V Activity POC ABG pH POC ABG pCO2 POC ABG pO2 ABG pO2 ABG HCO3 ABG Base Excess ABG Hemoglobin Oxyhemoglobin Sodium Potassium Chloride Carbon Dioxide 15 L BUN 124 H Creatinine 3.8 H Glucose POC Glucose 120 H Lactic Acid Calcium 8.1 L Phosphorus Magnesium Direct Bilirubin AST ALT Alkaline Phosphatase Lactate Dehydrogenase Troponin T C-Reactive Protein Total Protein Albumin Prealbumin Triglycerides Cholesterol LDL Cholesterol Direct HDL Cholesterol Urine pH Urine WBC (Auto) Urine Creatinine Urine Total Protein Fluid Total Protein Vancomycin Trough Rheumatoid Factor Complement C4 Miscellaneous Test Crossmatch 09/18/16 09/18/16 09/18/16 12:03 15:34 17:50 WBC RBC Hgb Hct MCV MCH MCHC RDW Plt Count Lymph % (Auto) [place] % (Auto) Lymph # [place] # Baso # Seg Neutrophils % Seg Neuts % (Manual) Lymphocytes % (Manual) Monocytes % (Manual) Eosinophils % (Manual) Basophils % (Manual) Nucleated RBC % Seg Neutrophils # Seg Neutrophils # Man Lymphocytes # (Manual) Monocytes # (Manual) Eosinophils # (Manual) Basophils # (Manual) PT INR Fibrinogen dRVVT Confirm Interp Factor V Activity POC ABG pH POC ABG pCO2 25.7 L POC ABG pO2 66 L ABG pO2 ABG HCO3 ABG Base Excess ABG Hemoglobin Oxyhemoglobin Sodium Potassium Chloride Carbon Dioxide BUN Creatinine Glucose POC Glucose 156 H 220 H Lactic Acid Calcium Phosphorus Magnesium Direct Bilirubin AST ALT Alkaline Phosphatase Lactate Dehydrogenase Troponin T C-Reactive Protein Total Protein Albumin Prealbumin Triglycerides Cholesterol LDL Cholesterol Direct HDL Cholesterol Urine pH Urine WBC (Auto) Urine Creatinine Urine Total Protein Fluid Total Protein Vancomycin Trough Rheumatoid Factor Complement C4 Miscellaneous Test Crossmatch 09/19/16 09/19/16 09/19/16 06:21 09:50 09:50 WBC 17.1 H RBC 3.49 L Hgb 9.0 L Hct 28.1 L MCV MCH 26 L MCHC RDW 20.8 H Plt Count Lymph % (Auto) 11.5 L [place] % (Auto) 7.5 H Lymph # [place] # 1.3 H Baso # Seg Neutrophils % 79.8 H Seg Neuts % (Manual) Lymphocytes % (Manual) Monocytes % (Manual) Eosinophils % (Manual) Basophils % (Manual) Nucleated RBC % Seg Neutrophils # 13.7 H Seg Neutrophils # Man Lymphocytes # (Manual) Monocytes # (Manual) Eosinophils # (Manual) Basophils # (Manual) PT INR Fibrinogen dRVVT Confirm Interp Factor V Activity POC ABG pH POC ABG pCO2 POC ABG pO2 ABG pO2 ABG HCO3 ABG Base Excess ABG Hemoglobin Oxyhemoglobin Sodium Potassium Chloride 108.6 H Carbon Dioxide 15 L BUN 125 H Creatinine 4.1 H Glucose 124 H POC Glucose 119 H Lactic Acid Calcium Phosphorus Magnesium Direct Bilirubin AST ALT Alkaline Phosphatase Lactate Dehydrogenase Troponin T C-Reactive Protein Total Protein Albumin Prealbumin Triglycerides Cholesterol LDL Cholesterol Direct HDL Cholesterol Urine pH Urine WBC (Auto) Urine Creatinine Urine Total Protein Fluid Total Protein Vancomycin Trough Rheumatoid Factor Complement C4 Miscellaneous Test Crossmatch 09/19/16 09/19/16 09/19/16 11:25 17:53 23:36 WBC RBC Hgb Hct MCV MCH MCHC RDW Plt Count Lymph % (Auto) [place] % (Auto) Lymph # [place] # Baso # Seg Neutrophils % Seg Neuts % (Manual) Lymphocytes % (Manual) Monocytes % (Manual) Eosinophils % (Manual) Basophils % (Manual) Nucleated RBC % Seg Neutrophils # Seg Neutrophils # Man Lymphocytes # (Manual) Monocytes # (Manual) Eosinophils # (Manual) Basophils # (Manual) PT INR Fibrinogen dRVVT Confirm Interp Factor V Activity POC ABG pH POC ABG pCO2 POC ABG pO2 ABG pO2 ABG HCO3 ABG Base Excess ABG Hemoglobin Oxyhemoglobin Sodium Potassium Chloride Carbon Dioxide BUN Creatinine Glucose POC Glucose 160 H 245 H 121 H Lactic Acid Calcium Phosphorus Magnesium Direct Bilirubin AST ALT Alkaline Phosphatase Lactate Dehydrogenase Troponin T C-Reactive Protein Total Protein Albumin Prealbumin Triglycerides Cholesterol LDL Cholesterol Direct HDL Cholesterol Urine pH Urine WBC (Auto) Urine Creatinine Urine Total Protein Fluid Total Protein Vancomycin Trough Rheumatoid Factor Complement C4 Miscellaneous Test Crossmatch 09/20/16 09/20/16 09/20/16 04:10 04:10 04:10 WBC 17.0 H RBC 3.21 L Hgb 8.2 L Hct 25.5 L MCV MCH 26 L MCHC RDW 20.9 H Plt Count Lymph % (Auto) [place] % (Auto) Lymph # [place] # Baso # Seg Neutrophils % Seg Neuts % (Manual) Lymphocytes % (Manual) Monocytes % (Manual) Eosinophils % (Manual) Basophils % (Manual) Nucleated RBC % Seg Neutrophils # Seg Neutrophils # Man Lymphocytes # (Manual) Monocytes # (Manual) Eosinophils # (Manual) Basophils # (Manual) PT INR Fibrinogen dRVVT Confirm Interp Factor V Activity POC ABG pH POC ABG pCO2 POC ABG pO2 ABG pO2 ABG HCO3 ABG Base Excess ABG Hemoglobin Oxyhemoglobin Sodium Potassium Chloride 111.0 H Carbon Dioxide 16 L BUN 129 H Creatinine 3.7 H Glucose 115 H POC Glucose Lactic Acid Calcium 8.2 L Phosphorus Magnesium Direct Bilirubin AST ALT Alkaline Phosphatase Lactate Dehydrogenase Troponin T C-Reactive Protein Total Protein Albumin Prealbumin Triglycerides 243 H Cholesterol LDL Cholesterol Direct HDL Cholesterol Urine pH Urine WBC (Auto) Urine Creatinine Urine Total Protein Fluid Total Protein Vancomycin Trough Rheumatoid Factor Complement C4 Miscellaneous Test Crossmatch 09/20/16 09/20/16 09/20/16 05:40 11:52 16:50 WBC RBC Hgb Hct MCV MCH MCHC RDW Plt Count Lymph % (Auto) [place] % (Auto) Lymph # [place] # Baso # Seg Neutrophils % Seg Neuts % (Manual) Lymphocytes % (Manual) Monocytes % (Manual) Eosinophils % (Manual) Basophils % (Manual) Nucleated RBC % Seg Neutrophils # Seg Neutrophils # Man Lymphocytes # (Manual) Monocytes # (Manual) Eosinophils # (Manual) Basophils # (Manual) PT INR Fibrinogen dRVVT Confirm Interp Factor V Activity POC ABG pH POC ABG pCO2 POC ABG pO2 ABG pO2 ABG HCO3 ABG Base Excess ABG Hemoglobin Oxyhemoglobin Sodium Potassium Chloride Carbon Dioxide BUN Creatinine Glucose POC Glucose 131 H 183 H 236 H Lactic Acid Calcium Phosphorus Magnesium Direct Bilirubin AST ALT Alkaline Phosphatase Lactate Dehydrogenase Troponin T C-Reactive Protein Total Protein Albumin Prealbumin Triglycerides Cholesterol LDL Cholesterol Direct HDL Cholesterol Urine pH Urine WBC (Auto) Urine Creatinine Urine Total Protein Fluid Total Protein Vancomycin Trough Rheumatoid Factor Complement C4 Miscellaneous Test Crossmatch 09/20/16 09/21/16 09/21/16 23:51 03:30 04:44 WBC RBC Hgb Hct MCV MCH MCHC RDW Plt Count Lymph % (Auto) [place] % (Auto) Lymph # [place] # Baso # Seg Neutrophils % Seg Neuts % (Manual) Lymphocytes % (Manual) Monocytes % (Manual) Eosinophils % (Manual) Basophils % (Manual) Nucleated RBC % Seg Neutrophils # Seg Neutrophils # Man Lymphocytes # (Manual) Monocytes # (Manual) Eosinophils # (Manual) Basophils # (Manual) PT INR Fibrinogen dRVVT Confirm Interp Factor V Activity POC ABG pH POC ABG pCO2 POC ABG pO2 ABG pO2 ABG HCO3 ABG Base Excess ABG Hemoglobin Oxyhemoglobin Sodium Potassium Chloride Carbon Dioxide BUN Creatinine Glucose POC Glucose 114 H 141 H Lactic Acid Calcium Phosphorus Magnesium 2.70 H Direct Bilirubin AST ALT Alkaline Phosphatase Lactate Dehydrogenase Troponin T C-Reactive Protein Total Protein Albumin Prealbumin Triglycerides Cholesterol LDL Cholesterol Direct HDL Cholesterol Urine pH Urine WBC (Auto) Urine Creatinine Urine Total Protein Fluid Total Protein Vancomycin Trough Rheumatoid Factor Complement C4 Miscellaneous Test Crossmatch 09/21/16 09/21/16 09/21/16 07:45 07:45 10:01 WBC 13.8 H RBC 2.94 L Hgb 7.5 L Hct 23.5 L MCV MCH 26 L MCHC RDW 21.2 H Plt Count Lymph % (Auto) 6.9 L [place] % (Auto) 9.4 H Lymph # 0.9 L [place] # 1.3 H Baso # Seg Neutrophils % 83.2 H Seg Neuts % (Manual) Lymphocytes % (Manual) Monocytes % (Manual) Eosinophils % (Manual) Basophils % (Manual) Nucleated RBC % Seg Neutrophils # 11.5 H Seg Neutrophils # Man Lymphocytes # (Manual) Monocytes # (Manual) Eosinophils # (Manual) Basophils # (Manual) PT INR Fibrinogen dRVVT Confirm Interp Factor V Activity POC ABG pH 7.308 L POC ABG pCO2 31.9 L POC ABG pO2 148 H ABG pO2 ABG HCO3 ABG Base Excess ABG Hemoglobin Oxyhemoglobin Sodium 147 H Potassium Chloride 114.2 H Carbon Dioxide 15 L BUN 120 H Creatinine 3.9 H Glucose 156 H POC Glucose Lactic Acid Calcium 8.2 L Phosphorus Magnesium Direct Bilirubin AST ALT Alkaline Phosphatase Lactate Dehydrogenase Troponin T C-Reactive Protein Total Protein Albumin Prealbumin Triglycerides Cholesterol LDL Cholesterol Direct HDL Cholesterol Urine pH Urine WBC (Auto) Urine Creatinine Urine Total Protein Fluid Total Protein Vancomycin Trough Rheumatoid Factor Complement C4 Miscellaneous Test Crossmatch 09/21/16 09/21/16 09/21/16 12:00 12:03 13:00 WBC RBC Hgb Hct MCV MCH MCHC RDW Plt Count Lymph % (Auto) [place] % (Auto) Lymph # [place] # Baso # Seg Neutrophils % Seg Neuts % (Manual) Lymphocytes % (Manual) Monocytes % (Manual) Eosinophils % (Manual) Basophils % (Manual) Nucleated RBC % Seg Neutrophils # Seg Neutrophils # Man Lymphocytes # (Manual) Monocytes # (Manual) Eosinophils # (Manual) Basophils # (Manual) PT INR Fibrinogen dRVVT Confirm Interp Factor V Activity POC ABG pH POC ABG pCO2 POC ABG pO2 ABG pO2 ABG HCO3 ABG Base Excess ABG Hemoglobin Oxyhemoglobin Sodium Potassium Chloride Carbon Dioxide BUN Creatinine Glucose POC Glucose 163 H Lactic Acid Calcium Phosphorus Magnesium Direct Bilirubin AST ALT Alkaline Phosphatase Lactate Dehydrogenase Troponin T C-Reactive Protein Total Protein Albumin Prealbumin Triglycerides Cholesterol LDL Cholesterol Direct HDL Cholesterol Urine pH Urine WBC (Auto) Urine Creatinine 54.8 H Urine Total Protein Fluid Total Protein Vancomycin Trough 2.3 L Rheumatoid Factor Complement C4 Miscellaneous Test Crossmatch 09/21/16 09/21/16 09/22/16 16:51 23:17 06:27 WBC RBC Hgb Hct MCV MCH MCHC RDW Plt Count Lymph % (Auto) [place] % (Auto) Lymph # [place] # Baso # Seg Neutrophils % Seg Neuts % (Manual) Lymphocytes % (Manual) Monocytes % (Manual) Eosinophils % (Manual) Basophils % (Manual) Nucleated RBC % Seg Neutrophils # Seg Neutrophils # Man Lymphocytes # (Manual) Monocytes # (Manual) Eosinophils # (Manual) Basophils # (Manual) PT INR Fibrinogen dRVVT Confirm Interp Factor V Activity POC ABG pH POC ABG pCO2 POC ABG pO2 ABG pO2 ABG HCO3 ABG Base Excess ABG Hemoglobin Oxyhemoglobin Sodium Potassium Chloride Carbon Dioxide BUN Creatinine Glucose POC Glucose 206 H 114 H 115 H Lactic Acid Calcium Phosphorus Magnesium Direct Bilirubin AST ALT Alkaline Phosphatase Lactate Dehydrogenase Troponin T C-Reactive Protein Total Protein Albumin Prealbumin Triglycerides Cholesterol LDL Cholesterol Direct HDL Cholesterol Urine pH Urine WBC (Auto) Urine Creatinine Urine Total Protein Fluid Total Protein Vancomycin Trough Rheumatoid Factor Complement C4 Miscellaneous Test Crossmatch 09/22/16 09/22/16 09/22/16 07:50 07:50 12:00 WBC 17.8 H RBC 3.04 L Hgb 8.0 L Hct 24.7 L MCV MCH 26 L MCHC RDW 21.6 H Plt Count Lymph % (Auto) [place] % (Auto) Lymph # [place] # Baso # Seg Neutrophils % Seg Neuts % (Manual) Lymphocytes % (Manual) Monocytes % (Manual) Eosinophils % (Manual) Basophils % (Manual) Nucleated RBC % Seg Neutrophils # Seg Neutrophils # Man Lymphocytes # (Manual) Monocytes # (Manual) Eosinophils # (Manual) Basophils # (Manual) PT INR Fibrinogen dRVVT Confirm Interp Factor V Activity POC ABG pH POC ABG pCO2 POC ABG pO2 ABG pO2 ABG HCO3 ABG Base Excess ABG Hemoglobin Oxyhemoglobin Sodium 150 H Potassium Chloride 118.2 H Carbon Dioxide 14 L BUN 111 H Creatinine 3.7 H Glucose 157 H POC Glucose 183 H Lactic Acid Calcium Phosphorus Magnesium Direct Bilirubin AST ALT Alkaline Phosphatase Lactate Dehydrogenase Troponin T C-Reactive Protein Total Protein Albumin Prealbumin Triglycerides Cholesterol LDL Cholesterol Direct HDL Cholesterol Urine pH Urine WBC (Auto) Urine Creatinine Urine Total Protein Fluid Total Protein Vancomycin Trough Rheumatoid Factor Complement C4 Miscellaneous Test Crossmatch 09/22/16 09/22/16 09/23/16 17:29 23:10 05:00 WBC 19.2 H RBC 3.13 L Hgb 8.0 L Hct 25.2 L MCV MCH 26 L MCHC RDW 22.1 H Plt Count Lymph % (Auto) [place] % (Auto) Lymph # [place] # Baso # Seg Neutrophils % Seg Neuts % (Manual) 92.0 H Lymphocytes % (Manual) 3.0 L Monocytes % (Manual) Eosinophils % (Manual) Basophils % (Manual) Nucleated RBC % Seg Neutrophils # Seg Neutrophils # Man 17.7 H Lymphocytes # (Manual) 0.6 L Monocytes # (Manual) Eosinophils # (Manual) Basophils # (Manual) PT INR Fibrinogen dRVVT Confirm Interp Factor V Activity POC ABG pH POC ABG pCO2 POC ABG pO2 ABG pO2 ABG HCO3 ABG Base Excess ABG Hemoglobin Oxyhemoglobin Sodium Potassium Chloride Carbon Dioxide BUN Creatinine Glucose POC Glucose 197 H 169 H Lactic Acid Calcium Phosphorus Magnesium Direct Bilirubin AST ALT Alkaline Phosphatase Lactate Dehydrogenase Troponin T C-Reactive Protein Total Protein Albumin Prealbumin Triglycerides Cholesterol LDL Cholesterol Direct HDL Cholesterol Urine pH Urine WBC (Auto) Urine Creatinine Urine Total Protein Fluid Total Protein Vancomycin Trough Rheumatoid Factor Complement C4 Miscellaneous Test Crossmatch 09/23/16 09/23/16 09/23/16 05:00 05:00 05:10 WBC RBC Hgb Hct MCV MCH MCHC RDW Plt Count Lymph % (Auto) [place] % (Auto) Lymph # [place] # Baso # Seg Neutrophils % Seg Neuts % (Manual) Lymphocytes % (Manual) Monocytes % (Manual) Eosinophils % (Manual) Basophils % (Manual) Nucleated RBC % Seg Neutrophils # Seg Neutrophils # Man Lymphocytes # (Manual) Monocytes # (Manual) Eosinophils # (Manual) Basophils # (Manual) PT INR Fibrinogen dRVVT Confirm Interp Factor V Activity POC ABG pH POC ABG pCO2 POC ABG pO2 ABG pO2 ABG HCO3 ABG Base Excess ABG Hemoglobin Oxyhemoglobin Sodium 147 H Potassium 3.2 L Chloride 115.7 H Carbon Dioxide 13 L BUN 111 H Creatinine 3.8 H Glucose 194 H POC Glucose 188 H Lactic Acid Calcium 7.3 L D Phosphorus Magnesium Direct Bilirubin AST ALT Alkaline Phosphatase Lactate Dehydrogenase Troponin T C-Reactive Protein 3.20 H Total Protein Albumin Prealbumin Triglycerides Cholesterol LDL Cholesterol Direct HDL Cholesterol Urine pH Urine WBC (Auto) Urine Creatinine Urine Total Protein Fluid Total Protein Vancomycin Trough Rheumatoid Factor Complement C4 Miscellaneous Test Crossmatch 09/23/16 09/23/16 09/23/16 11:37 12:29 18:01 WBC RBC Hgb Hct MCV MCH MCHC RDW Plt Count Lymph % (Auto) [place] % (Auto) Lymph # [place] # Baso # Seg Neutrophils % Seg Neuts % (Manual) Lymphocytes % (Manual) Monocytes % (Manual) Eosinophils % (Manual) Basophils % (Manual) Nucleated RBC % Seg Neutrophils # Seg Neutrophils # Man Lymphocytes # (Manual) Monocytes # (Manual) Eosinophils # (Manual) Basophils # (Manual) PT INR Fibrinogen dRVVT Confirm Interp Factor V Activity POC ABG pH POC ABG pCO2 18.9 L POC ABG pO2 143 H ABG pO2 ABG HCO3 ABG Base Excess ABG Hemoglobin Oxyhemoglobin Sodium Potassium Chloride Carbon Dioxide BUN Creatinine Glucose POC Glucose 153 H 108 H Lactic Acid Calcium Phosphorus Magnesium Direct Bilirubin AST ALT Alkaline Phosphatase Lactate Dehydrogenase Troponin T C-Reactive Protein Total Protein Albumin Prealbumin Triglycerides Cholesterol LDL Cholesterol Direct HDL Cholesterol Urine pH Urine WBC (Auto) Urine Creatinine Urine Total Protein Fluid Total Protein Vancomycin Trough Rheumatoid Factor Complement C4 Miscellaneous Test Crossmatch 09/23/16 09/23/16 09/24/16 21:19 23:43 05:16 WBC RBC Hgb Hct MCV MCH MCHC RDW Plt Count Lymph % (Auto) [place] % (Auto) Lymph # [place] # Baso # Seg Neutrophils % Seg Neuts % (Manual) Lymphocytes % (Manual) Monocytes % (Manual) Eosinophils % (Manual) Basophils % (Manual) Nucleated RBC % Seg Neutrophils # Seg Neutrophils # Man Lymphocytes # (Manual) Monocytes # (Manual) Eosinophils # (Manual) Basophils # (Manual) PT INR Fibrinogen dRVVT Confirm Interp Factor V Activity POC ABG pH POC ABG pCO2 17.3 L POC ABG pO2 112 H ABG pO2 ABG HCO3 ABG Base Excess ABG Hemoglobin Oxyhemoglobin Sodium Potassium Chloride Carbon Dioxide BUN Creatinine Glucose POC Glucose 143 H 164 H Lactic Acid Calcium Phosphorus Magnesium Direct Bilirubin AST ALT Alkaline Phosphatase Lactate Dehydrogenase Troponin T C-Reactive Protein Total Protein Albumin Prealbumin Triglycerides Cholesterol LDL Cholesterol Direct HDL Cholesterol Urine pH Urine WBC (Auto) Urine Creatinine Urine Total Protein Fluid Total Protein Vancomycin Trough Rheumatoid Factor Complement C4 Miscellaneous Test Crossmatch 09/24/16 09/24/16 09/24/16 05:21 11:58 17:06 WBC RBC Hgb Hct MCV MCH MCHC RDW Plt Count Lymph % (Auto) [place] % (Auto) Lymph # [place] # Baso # Seg Neutrophils % Seg Neuts % (Manual) Lymphocytes % (Manual) Monocytes % (Manual) Eosinophils % (Manual) Basophils % (Manual) Nucleated RBC % Seg Neutrophils # Seg Neutrophils # Man Lymphocytes # (Manual) Monocytes # (Manual) Eosinophils # (Manual) Basophils # (Manual) PT INR Fibrinogen dRVVT Confirm Interp Factor V Activity POC ABG pH POC ABG pCO2 POC ABG pO2 ABG pO2 ABG HCO3 ABG Base Excess ABG Hemoglobin Oxyhemoglobin Sodium Potassium Chloride Carbon Dioxide 10 L BUN 103 H Creatinine 4.3 H Glucose 163 H POC Glucose 173 H 167 H Lactic Acid Calcium 6.5 L Phosphorus Magnesium Direct Bilirubin AST ALT Alkaline Phosphatase Lactate Dehydrogenase Troponin T C-Reactive Protein Total Protein Albumin Prealbumin Triglycerides Cholesterol LDL Cholesterol Direct HDL Cholesterol Urine pH Urine WBC (Auto) Urine Creatinine Urine Total Protein Fluid Total Protein Vancomycin Trough Rheumatoid Factor Complement C4 Miscellaneous Test Crossmatch 09/24/16 09/24/16 09/24/16 20:15 21:02 23:48 WBC RBC Hgb Hct MCV MCH MCHC RDW Plt Count Lymph % (Auto) [place] % (Auto) Lymph # [place] # Baso # Seg Neutrophils % Seg Neuts % (Manual) Lymphocytes % (Manual) Monocytes % (Manual) Eosinophils % (Manual) Basophils % (Manual) Nucleated RBC % Seg Neutrophils # Seg Neutrophils # Man Lymphocytes # (Manual) Monocytes # (Manual) Eosinophils # (Manual) Basophils # (Manual) PT INR Fibrinogen dRVVT Confirm Interp Factor V Activity POC ABG pH 7.288 L POC ABG pCO2 30.2 L 21.5 L POC ABG pO2 32 L 39 L ABG pO2 ABG HCO3 ABG Base Excess ABG Hemoglobin Oxyhemoglobin Sodium Potassium Chloride Carbon Dioxide BUN Creatinine Glucose POC Glucose 109 H Lactic Acid Calcium Phosphorus Magnesium Direct Bilirubin AST ALT Alkaline Phosphatase Lactate Dehydrogenase Troponin T C-Reactive Protein Total Protein Albumin Prealbumin Triglycerides Cholesterol LDL Cholesterol Direct HDL Cholesterol Urine pH Urine WBC (Auto) Urine Creatinine Urine Total Protein Fluid Total Protein Vancomycin Trough Rheumatoid Factor Complement C4 Miscellaneous Test Crossmatch 09/25/16 09/25/16 09/25/16 04:20 04:20 04:20 WBC RBC 2.58 L Hgb 7.0 L Hct 21.0 L MCV MCH 27 L MCHC RDW 23.8 H Plt Count Lymph % (Auto) [place] % (Auto) Lymph # [place] # Baso # Seg Neutrophils % Seg Neuts % (Manual) Lymphocytes % (Manual) 12.0 L Monocytes % (Manual) Eosinophils % (Manual) 7.0 H Basophils % (Manual) 2.0 H Nucleated RBC % Seg Neutrophils # Seg Neutrophils # Man Lymphocytes # (Manual) 0.9 L Monocytes # (Manual) Eosinophils # (Manual) 0.5 H Basophils # (Manual) PT INR Fibrinogen dRVVT Confirm Interp Factor V Activity POC ABG pH POC ABG pCO2 POC ABG pO2 ABG pO2 ABG HCO3 ABG Base Excess ABG Hemoglobin Oxyhemoglobin Sodium Potassium Chloride Carbon Dioxide 15 L BUN 72 H Creatinine 3.8 H Glucose POC Glucose Lactic Acid Calcium 6.0 L Phosphorus 4.60 H Magnesium 1.60 L Direct Bilirubin AST ALT Alkaline Phosphatase Lactate Dehydrogenase Troponin T C-Reactive Protein Total Protein Albumin Prealbumin Triglycerides Cholesterol LDL Cholesterol Direct HDL Cholesterol Urine pH Urine WBC (Auto) Urine Creatinine Urine Total Protein Fluid Total Protein Vancomycin Trough Rheumatoid Factor Complement C4 Miscellaneous Test Crossmatch 09/25/16 09/25/16 09/25/16 04:57 08:02 10:30 WBC RBC Hgb Hct MCV MCH MCHC RDW Plt Count Lymph % (Auto) [place] % (Auto) Lymph # [place] # Baso # Seg Neutrophils % Seg Neuts % (Manual) Lymphocytes % (Manual) Monocytes % (Manual) Eosinophils % (Manual) Basophils % (Manual) Nucleated RBC % Seg Neutrophils # Seg Neutrophils # Man Lymphocytes # (Manual) Monocytes # (Manual) Eosinophils # (Manual) Basophils # (Manual) PT INR Fibrinogen dRVVT Confirm Interp Factor V Activity POC ABG pH POC ABG pCO2 24.7 L POC ABG pO2 152 H ABG pO2 ABG HCO3 ABG Base Excess ABG Hemoglobin Oxyhemoglobin Sodium Potassium Chloride Carbon Dioxide BUN Creatinine Glucose POC Glucose 113 H Lactic Acid Calcium Phosphorus Magnesium Direct Bilirubin AST ALT Alkaline Phosphatase Lactate Dehydrogenase Troponin T C-Reactive Protein Total Protein Albumin Prealbumin Triglycerides Cholesterol LDL Cholesterol Direct HDL Cholesterol Urine pH Urine WBC (Auto) Urine Creatinine Urine Total Protein Fluid Total Protein Vancomycin Trough Rheumatoid Factor Complement C4 Miscellaneous Test Crossmatch See Detail 09/25/16 09/25/16 09/25/16 12:05 17:44 23:47 WBC RBC Hgb Hct MCV MCH MCHC RDW Plt Count Lymph % (Auto) [place] % (Auto) Lymph # [place] # Baso # Seg Neutrophils % Seg Neuts % (Manual) Lymphocytes % (Manual) Monocytes % (Manual) Eosinophils % (Manual) Basophils % (Manual) Nucleated RBC % Seg Neutrophils # Seg Neutrophils # Man Lymphocytes # (Manual) Monocytes # (Manual) Eosinophils # (Manual) Basophils # (Manual) PT INR Fibrinogen dRVVT Confirm Interp Factor V Activity POC ABG pH POC ABG pCO2 POC ABG pO2 ABG pO2 ABG HCO3 ABG Base Excess ABG Hemoglobin Oxyhemoglobin Sodium Potassium Chloride Carbon Dioxide BUN Creatinine Glucose POC Glucose 117 H 119 H 150 H Lactic Acid Calcium Phosphorus Magnesium Direct Bilirubin AST ALT Alkaline Phosphatase Lactate Dehydrogenase Troponin T C-Reactive Protein Total Protein Albumin Prealbumin Triglycerides Cholesterol LDL Cholesterol Direct HDL Cholesterol Urine pH Urine WBC (Auto) Urine Creatinine Urine Total Protein Fluid Total Protein Vancomycin Trough Rheumatoid Factor Complement C4 Miscellaneous Test Crossmatch 09/26/16 09/26/16 09/26/16 04:25 04:25 04:25 WBC RBC 2.65 L Hgb 7.4 L Hct 21.6 L MCV MCH MCHC RDW 22.5 H Plt Count Lymph % (Auto) [place] % (Auto) Lymph # [place] # Baso # Seg Neutrophils % Seg Neuts % (Manual) Lymphocytes % (Manual) 6.0 L Monocytes % (Manual) Eosinophils % (Manual) 11.0 H Basophils % (Manual) Nucleated RBC % Seg Neutrophils # Seg Neutrophils # Man Lymphocytes # (Manual) 0.4 L Monocytes # (Manual) Eosinophils # (Manual) 0.6 H Basophils # (Manual) PT INR Fibrinogen dRVVT Confirm Interp Factor V Activity POC ABG pH POC ABG pCO2 POC ABG pO2 ABG pO2 ABG HCO3 ABG Base Excess ABG Hemoglobin Oxyhemoglobin Sodium Potassium Chloride 97.0 L Carbon Dioxide 19 L BUN 43 H Creatinine 2.6 H Glucose 130 H POC Glucose Lactic Acid 4.40 H* Calcium 6.7 L Phosphorus Magnesium Direct Bilirubin AST ALT Alkaline Phosphatase Lactate Dehydrogenase Troponin T C-Reactive Protein Total Protein Albumin Prealbumin Triglycerides Cholesterol LDL Cholesterol Direct HDL Cholesterol Urine pH Urine WBC (Auto) Urine Creatinine Urine Total Protein Fluid Total Protein Vancomycin Trough Rheumatoid Factor Complement C4 Miscellaneous Test Crossmatch 09/26/16 09/26/16 09/26/16 05:20 11:44 12:12 WBC RBC Hgb Hct MCV MCH MCHC RDW Plt Count Lymph % (Auto) [place] % (Auto) Lymph # [place] # Baso # Seg Neutrophils % Seg Neuts % (Manual) Lymphocytes % (Manual) Monocytes % (Manual) Eosinophils % (Manual) Basophils % (Manual) Nucleated RBC % Seg Neutrophils # Seg Neutrophils # Man Lymphocytes # (Manual) Monocytes # (Manual) Eosinophils # (Manual) Basophils # (Manual) PT INR Fibrinogen dRVVT Confirm Interp Factor V Activity POC ABG pH POC ABG pCO2 27.0 L POC ABG pO2 69 L ABG pO2 ABG HCO3 ABG Base Excess ABG Hemoglobin Oxyhemoglobin Sodium Potassium Chloride Carbon Dioxide BUN Creatinine Glucose POC Glucose 121 H 128 H Lactic Acid Calcium Phosphorus Magnesium Direct Bilirubin AST ALT Alkaline Phosphatase Lactate Dehydrogenase Troponin T C-Reactive Protein Total Protein Albumin Prealbumin Triglycerides Cholesterol LDL Cholesterol Direct HDL Cholesterol Urine pH Urine WBC (Auto) Urine Creatinine Urine Total Protein Fluid Total Protein Vancomycin Trough Rheumatoid Factor Complement C4 Miscellaneous Test Crossmatch 09/26/16 09/26/16 09/27/16 18:31 23:40 08:20 WBC RBC Hgb Hct MCV MCH MCHC RDW Plt Count Lymph % (Auto) [place] % (Auto) Lymph # [place] # Baso # Seg Neutrophils % Seg Neuts % (Manual) Lymphocytes % (Manual) Monocytes % (Manual) Eosinophils % (Manual) Basophils % (Manual) Nucleated RBC % Seg Neutrophils # Seg Neutrophils # Man Lymphocytes # (Manual) Monocytes # (Manual) Eosinophils # (Manual) Basophils # (Manual) PT INR Fibrinogen dRVVT Confirm Interp Factor V Activity POC ABG pH POC ABG pCO2 POC ABG pO2 ABG pO2 ABG HCO3 ABG Base Excess ABG Hemoglobin Oxyhemoglobin Sodium Potassium Chloride Carbon Dioxide BUN Creatinine Glucose POC Glucose 120 H 133 H Lactic Acid 4.10 H* Calcium Phosphorus Magnesium Direct Bilirubin AST ALT Alkaline Phosphatase Lactate Dehydrogenase Troponin T C-Reactive Protein Total Protein Albumin Prealbumin Triglycerides Cholesterol LDL Cholesterol Direct HDL Cholesterol Urine pH Urine WBC (Auto) Urine Creatinine Urine Total Protein Fluid Total Protein Vancomycin Trough Rheumatoid Factor Complement C4 Miscellaneous Test Crossmatch 09/27/16 09/27/16 09/27/16 11:23 15:00 18:15 WBC RBC Hgb Hct MCV MCH MCHC RDW Plt Count Lymph % (Auto) [place] % (Auto) Lymph # [place] # Baso # Seg Neutrophils % Seg Neuts % (Manual) Lymphocytes % (Manual) Monocytes % (Manual) Eosinophils % (Manual) Basophils % (Manual) Nucleated RBC % Seg Neutrophils # Seg Neutrophils # Man Lymphocytes # (Manual) Monocytes # (Manual) Eosinophils # (Manual) Basophils # (Manual) PT INR Fibrinogen dRVVT Confirm Interp Factor V Activity POC ABG pH 7.459 H POC ABG pCO2 27.1 L POC ABG pO2 140 H ABG pO2 ABG HCO3 ABG Base Excess ABG Hemoglobin Oxyhemoglobin Sodium Potassium Chloride Carbon Dioxide BUN Creatinine Glucose POC Glucose 114 H 127 H Lactic Acid Calcium Phosphorus Magnesium Direct Bilirubin AST ALT Alkaline Phosphatase Lactate Dehydrogenase Troponin T C-Reactive Protein Total Protein Albumin Prealbumin Triglycerides Cholesterol LDL Cholesterol Direct HDL Cholesterol Urine pH Urine WBC (Auto) Urine Creatinine Urine Total Protein Fluid Total Protein Vancomycin Trough Rheumatoid Factor Complement C4 Miscellaneous Test Crossmatch 09/27/16 09/27/16 09/28/16 Unknown Unknown 03:45 WBC RBC 2.49 L Hgb 6.8 L Hct 20.7 L MCV MCH 27 L MCHC RDW 22.1 H Plt Count Lymph % (Auto) [place] % (Auto) Lymph # [place] # Baso # Seg Neutrophils % Seg Neuts % (Manual) 32.0 L Lymphocytes % (Manual) 12.0 L Monocytes % (Manual) 11.0 H Eosinophils % (Manual) 10.0 H Basophils % (Manual) Nucleated RBC % Seg Neutrophils # Seg Neutrophils # Man Lymphocytes # (Manual) 1.0 L Monocytes # (Manual) 0.9 H Eosinophils # (Manual) 0.8 H Basophils # (Manual) PT INR Fibrinogen dRVVT Confirm Interp Factor V Activity POC ABG pH POC ABG pCO2 POC ABG pO2 ABG pO2 ABG HCO3 ABG Base Excess ABG Hemoglobin Oxyhemoglobin Sodium 135 L 135 L Potassium 3.5 L Chloride 93.6 L 94.4 L Carbon Dioxide 17 L 21 L BUN 45 H 28 H Creatinine 3.3 H 2.5 H Glucose 106 H POC Glucose Lactic Acid Calcium 7.3 L 7.1 L Phosphorus Magnesium Direct Bilirubin AST ALT Alkaline Phosphatase Lactate Dehydrogenase Troponin T C-Reactive Protein Total Protein Albumin Prealbumin Triglycerides Cholesterol LDL Cholesterol Direct HDL Cholesterol Urine pH Urine WBC (Auto) Urine Creatinine Urine Total Protein Fluid Total Protein Vancomycin Trough Rheumatoid Factor Complement C4 Miscellaneous Test Crossmatch 09/28/16 09/28/16 09/28/16 03:45 07:25 11:58 WBC 13.3 H RBC 3.01 L Hgb 8.4 L Hct 25.0 L MCV MCH MCHC RDW 20.5 H Plt Count 128 L Lymph % (Auto) [place] % (Auto) Lymph # [place] # Baso # Seg Neutrophils % Seg Neuts % (Manual) Lymphocytes % (Manual) 7.0 L Monocytes % (Manual) Eosinophils % (Manual) 6.0 H Basophils % (Manual) Nucleated RBC % Seg Neutrophils # Seg Neutrophils # Man Lymphocytes # (Manual) 0.9 L Monocytes # (Manual) Eosinophils # (Manual) 0.8 H Basophils # (Manual) PT INR Fibrinogen dRVVT Confirm Interp Factor V Activity POC ABG pH POC ABG pCO2 POC ABG pO2 ABG pO2 ABG HCO3 ABG Base Excess ABG Hemoglobin Oxyhemoglobin Sodium Potassium Chloride Carbon Dioxide BUN Creatinine Glucose POC Glucose 121 H Lactic Acid 4.50 H* Calcium Phosphorus Magnesium Direct Bilirubin AST ALT Alkaline Phosphatase Lactate Dehydrogenase Troponin T C-Reactive Protein Total Protein Albumin Prealbumin Triglycerides Cholesterol LDL Cholesterol Direct HDL Cholesterol Urine pH Urine WBC (Auto) Urine Creatinine Urine Total Protein Fluid Total Protein Vancomycin Trough Rheumatoid Factor Complement C4 Miscellaneous Test Crossmatch 09/29/16 09/29/16 09/29/16 06:45 06:45 06:45 WBC 14.9 H RBC 2.74 L Hgb 7.6 L Hct 23.2 L MCV MCH MCHC RDW 20.5 H Plt Count 81 L Lymph % (Auto) [place] % (Auto) Lymph # [place] # Baso # Seg Neutrophils % Seg Neuts % (Manual) 81.0 H Lymphocytes % (Manual) 4.0 L Monocytes % (Manual) Eosinophils % (Manual) Basophils % (Manual) Nucleated RBC % Seg Neutrophils # Seg Neutrophils # Man 12.1 H Lymphocytes # (Manual) 0.6 L Monocytes # (Manual) Eosinophils # (Manual) Basophils # (Manual) PT INR Fibrinogen dRVVT Confirm Interp Factor V Activity POC ABG pH POC ABG pCO2 POC ABG pO2 ABG pO2 ABG HCO3 ABG Base Excess ABG Hemoglobin Oxyhemoglobin Sodium 133 L Potassium 3.4 L Chloride 92.5 L Carbon Dioxide 21 L BUN 33 H Creatinine 3.0 H Glucose POC Glucose Lactic Acid Calcium 6.6 L Phosphorus Magnesium 1.40 L Direct Bilirubin 0.9 H AST ALT Alkaline Phosphatase Lactate Dehydrogenase Troponin T C-Reactive Protein Total Protein 4.3 L Albumin 1.3 L Prealbumin Triglycerides Cholesterol LDL Cholesterol Direct HDL Cholesterol Urine pH Urine WBC (Auto) Urine Creatinine Urine Total Protein Fluid Total Protein Vancomycin Trough Rheumatoid Factor Complement C4 Miscellaneous Test Crossmatch 09/29/16 09/29/16 09/30/16 17:52 20:12 00:07 WBC RBC Hgb Hct MCV MCH MCHC RDW Plt Count Lymph % (Auto) [place] % (Auto) Lymph # [place] # Baso # Seg Neutrophils % Seg Neuts % (Manual) Lymphocytes % (Manual) Monocytes % (Manual) Eosinophils % (Manual) Basophils % (Manual) Nucleated RBC % Seg Neutrophils # Seg Neutrophils # Man Lymphocytes # (Manual) Monocytes # (Manual) Eosinophils # (Manual) Basophils # (Manual) PT INR Fibrinogen dRVVT Confirm Interp Factor V Activity POC ABG pH POC ABG pCO2 POC ABG pO2 ABG pO2 ABG HCO3 ABG Base Excess ABG Hemoglobin Oxyhemoglobin Sodium Potassium Chloride Carbon Dioxide BUN Creatinine Glucose POC Glucose 50 L 51 L Lactic Acid Calcium Phosphorus Magnesium Direct Bilirubin AST ALT Alkaline Phosphatase Lactate Dehydrogenase Troponin T 0.204 H* C-Reactive Protein Total Protein Albumin Prealbumin Triglycerides Cholesterol 31 L LDL Cholesterol Direct 4 L HDL Cholesterol 3 L Urine pH Urine WBC (Auto) Urine Creatinine Urine Total Protein Fluid Total Protein Vancomycin Trough Rheumatoid Factor Complement C4 Miscellaneous Test Crossmatch 09/30/16 09/30/16 09/30/16 01:30 05:15 06:10 WBC RBC Hgb Hct MCV MCH MCHC RDW Plt Count Lymph % (Auto) [place] % (Auto) Lymph # [place] # Baso # Seg Neutrophils % Seg Neuts % (Manual) Lymphocytes % (Manual) Monocytes % (Manual) Eosinophils % (Manual) Basophils % (Manual) Nucleated RBC % Seg Neutrophils # Seg Neutrophils # Man Lymphocytes # (Manual) Monocytes # (Manual) Eosinophils # (Manual) Basophils # (Manual) PT INR Fibrinogen dRVVT Confirm Interp Factor V Activity POC ABG pH POC ABG pCO2 POC ABG pO2 ABG pO2 ABG HCO3 ABG Base Excess ABG Hemoglobin Oxyhemoglobin Sodium 133 L Potassium 3.2 L Chloride 93.2 L Carbon Dioxide 19 L BUN 36 H Creatinine 3.2 H Glucose 104 H POC Glucose 167 H 146 H Lactic Acid Calcium 6.4 L Phosphorus Magnesium 1.60 L Direct Bilirubin AST ALT Alkaline Phosphatase Lactate Dehydrogenase Troponin T C-Reactive Protein Total Protein Albumin Prealbumin Triglycerides Cholesterol LDL Cholesterol Direct HDL Cholesterol Urine pH Urine WBC (Auto) Urine Creatinine Urine Total Protein Fluid Total Protein Vancomycin Trough Rheumatoid Factor Complement C4 Miscellaneous Test Crossmatch 09/30/16 09/30/16 09/30/16 11:26 13:39 18:38 WBC RBC Hgb Hct MCV MCH MCHC RDW Plt Count Lymph % (Auto) [place] % (Auto) Lymph # [place] # Baso # Seg Neutrophils % Seg Neuts % (Manual) Lymphocytes % (Manual) Monocytes % (Manual) Eosinophils % (Manual) Basophils % (Manual) Nucleated RBC % Seg Neutrophils # Seg Neutrophils # Man Lymphocytes # (Manual) Monocytes # (Manual) Eosinophils # (Manual) Basophils # (Manual) PT INR Fibrinogen dRVVT Confirm Interp Factor V Activity POC ABG pH 7.479 H POC ABG pCO2 29.8 L POC ABG pO2 117 H ABG pO2 ABG HCO3 ABG Base Excess ABG Hemoglobin Oxyhemoglobin Sodium Potassium Chloride Carbon Dioxide BUN Creatinine Glucose POC Glucose 140 H 122 H Lactic Acid Calcium Phosphorus Magnesium Direct Bilirubin AST ALT Alkaline Phosphatase Lactate Dehydrogenase Troponin T C-Reactive Protein Total Protein Albumin Prealbumin Triglycerides Cholesterol LDL Cholesterol Direct HDL Cholesterol Urine pH Urine WBC (Auto) Urine Creatinine Urine Total Protein Fluid Total Protein Vancomycin Trough Rheumatoid Factor Complement C4 Miscellaneous Test Crossmatch 10/01/16 10/01/16 10/01/16 06:00 06:00 12:37 WBC 12.6 H RBC 2.75 L Hgb 7.3 L Hct 23.3 L MCV MCH 27 L MCHC RDW 20.6 H Plt Count 72 L Lymph % (Auto) [place] % (Auto) Lymph # [place] # Baso # Seg Neutrophils % Seg Neuts % (Manual) 31.0 L Lymphocytes % (Manual) 8.0 L Monocytes % (Manual) Eosinophils % (Manual) Basophils % (Manual) Nucleated RBC % 3.0 H Seg Neutrophils # Seg Neutrophils # Man Lymphocytes # (Manual) 1.0 L Monocytes # (Manual) Eosinophils # (Manual) Basophils # (Manual) PT INR Fibrinogen dRVVT Confirm Interp Factor V Activity POC ABG pH POC ABG pCO2 POC ABG pO2 ABG pO2 ABG HCO3 ABG Base Excess ABG Hemoglobin Oxyhemoglobin Sodium 127 L Potassium Chloride 86.8 L Carbon Dioxide 20 L BUN 42 H Creatinine 3.5 H Glucose POC Glucose 65 L Lactic Acid Calcium 7.0 L Phosphorus Magnesium Direct Bilirubin AST ALT Alkaline Phosphatase Lactate Dehydrogenase Troponin T C-Reactive Protein Total Protein Albumin Prealbumin Triglycerides Cholesterol LDL Cholesterol Direct HDL Cholesterol Urine pH Urine WBC (Auto) Urine Creatinine Urine Total Protein Fluid Total Protein Vancomycin Trough Rheumatoid Factor Complement C4 Miscellaneous Test Crossmatch 10/01/16 10/01/16 10/02/16 17:39 23:32 00:59 WBC RBC Hgb Hct MCV MCH MCHC RDW Plt Count Lymph % (Auto) [place] % (Auto) Lymph # [place] # Baso # Seg Neutrophils % Seg Neuts % (Manual) Lymphocytes % (Manual) Monocytes % (Manual) Eosinophils % (Manual) Basophils % (Manual) Nucleated RBC % Seg Neutrophils # Seg Neutrophils # Man Lymphocytes # (Manual) Monocytes # (Manual) Eosinophils # (Manual) Basophils # (Manual) PT INR Fibrinogen dRVVT Confirm Interp Factor V Activity POC ABG pH POC ABG pCO2 POC ABG pO2 ABG pO2 ABG HCO3 ABG Base Excess ABG Hemoglobin Oxyhemoglobin Sodium Potassium Chloride Carbon Dioxide BUN Creatinine Glucose POC Glucose 107 H 52 L 145 H Lactic Acid Calcium Phosphorus Magnesium Direct Bilirubin AST ALT Alkaline Phosphatase Lactate Dehydrogenase Troponin T C-Reactive Protein Total Protein Albumin Prealbumin Triglycerides Cholesterol LDL Cholesterol Direct HDL Cholesterol Urine pH Urine WBC (Auto) Urine Creatinine Urine Total Protein Fluid Total Protein Vancomycin Trough Rheumatoid Factor Complement C4 Miscellaneous Test Crossmatch 10/02/16 10/02/16 10/02/16 10:30 10:50 10:50 WBC 14.7 H RBC 2.76 L Hgb 7.4 L Hct 23.6 L MCV MCH 27 L MCHC RDW 20.2 H Plt Count 79 L Lymph % (Auto) [place] % (Auto) Lymph # [place] # Baso # Seg Neutrophils % Seg Neuts % (Manual) 86.0 H Lymphocytes % (Manual) 6.0 L Monocytes % (Manual) Eosinophils % (Manual) Basophils % (Manual) Nucleated RBC % Seg Neutrophils # Seg Neutrophils # Man 12.6 H Lymphocytes # (Manual) 0.9 L Monocytes # (Manual) Eosinophils # (Manual) Basophils # (Manual) PT INR Fibrinogen dRVVT Confirm Interp Factor V Activity POC ABG pH 7.486 H POC ABG pCO2 30.1 L POC ABG pO2 108 H ABG pO2 ABG HCO3 ABG Base Excess ABG Hemoglobin Oxyhemoglobin Sodium 131 L Potassium 3.4 L Chloride 89.9 L Carbon Dioxide BUN 26 H Creatinine 2.6 H Glucose POC Glucose Lactic Acid Calcium 7.0 L Phosphorus Magnesium Direct Bilirubin AST ALT Alkaline Phosphatase Lactate Dehydrogenase Troponin T C-Reactive Protein Total Protein Albumin Prealbumin Triglycerides Cholesterol LDL Cholesterol Direct HDL Cholesterol Urine pH Urine WBC (Auto) Urine Creatinine Urine Total Protein Fluid Total Protein Vancomycin Trough Rheumatoid Factor Complement C4 Miscellaneous Test Crossmatch 10/02/16 10/03/16 10/03/16 23:45 00:45 05:10 WBC 12.9 H RBC 2.77 L Hgb 7.6 L Hct 23.7 L MCV MCH 27 L MCHC RDW 19.7 H Plt Count 89 L Lymph % (Auto) [place] % (Auto) Lymph # [place] # Baso # Seg Neutrophils % Seg Neuts % (Manual) Lymphocytes % (Manual) 8.0 L Monocytes % (Manual) Eosinophils % (Manual) Basophils % (Manual) Nucleated RBC % Seg Neutrophils # 11.9 H Seg Neutrophils # Man Lymphocytes # (Manual) 1.0 L Monocytes # (Manual) Eosinophils # (Manual) Basophils # (Manual) PT INR Fibrinogen dRVVT Confirm Interp Factor V Activity POC ABG pH POC ABG pCO2 POC ABG pO2 ABG pO2 ABG HCO3 ABG Base Excess ABG Hemoglobin Oxyhemoglobin Sodium Potassium Chloride Carbon Dioxide BUN Creatinine Glucose POC Glucose 55 L 199 H Lactic Acid Calcium Phosphorus Magnesium Direct Bilirubin AST ALT Alkaline Phosphatase Lactate Dehydrogenase Troponin T C-Reactive Protein Total Protein Albumin Prealbumin Triglycerides Cholesterol LDL Cholesterol Direct HDL Cholesterol Urine pH Urine WBC (Auto) Urine Creatinine Urine Total Protein Fluid Total Protein Vancomycin Trough Rheumatoid Factor Complement C4 Miscellaneous Test Crossmatch 10/03/16 10/03/16 10/03/16 05:10 12:14 13:18 WBC RBC Hgb Hct MCV MCH MCHC RDW Plt Count Lymph % (Auto) [place] % (Auto) Lymph # [place] # Baso # Seg Neutrophils % Seg Neuts % (Manual) Lymphocytes % (Manual) Monocytes % (Manual) Eosinophils % (Manual) Basophils % (Manual) Nucleated RBC % Seg Neutrophils # Seg Neutrophils # Man Lymphocytes # (Manual) Monocytes # (Manual) Eosinophils # (Manual) Basophils # (Manual) PT INR Fibrinogen dRVVT Confirm Interp Factor V Activity POC ABG pH POC ABG pCO2 POC ABG pO2 ABG pO2 ABG HCO3 ABG Base Excess ABG Hemoglobin Oxyhemoglobin Sodium 129 L Potassium 3.3 L Chloride 88.8 L Carbon Dioxide 20 L BUN 29 H Creatinine 2.8 H Glucose POC Glucose 68 L 127 H Lactic Acid Calcium 7.2 L Phosphorus Magnesium Direct Bilirubin AST ALT Alkaline Phosphatase Lactate Dehydrogenase Troponin T C-Reactive Protein Total Protein Albumin Prealbumin Triglycerides Cholesterol LDL Cholesterol Direct HDL Cholesterol Urine pH Urine WBC (Auto) Urine Creatinine Urine Total Protein Fluid Total Protein Vancomycin Trough Rheumatoid Factor Complement C4 Miscellaneous Test Crossmatch 10/03/16 10/03/16 10/03/16 14:42 18:21 19:09 WBC RBC Hgb Hct MCV MCH MCHC RDW Plt Count Lymph % (Auto) [place] % (Auto) Lymph # [place] # Baso # Seg Neutrophils % Seg Neuts % (Manual) Lymphocytes % (Manual) Monocytes % (Manual) Eosinophils % (Manual) Basophils % (Manual) Nucleated RBC % Seg Neutrophils # Seg Neutrophils # Man Lymphocytes # (Manual) Monocytes # (Manual) Eosinophils # (Manual) Basophils # (Manual) PT INR Fibrinogen dRVVT Confirm Interp Factor V Activity POC ABG pH 7.499 H POC ABG pCO2 28.4 L POC ABG pO2 44 L ABG pO2 ABG HCO3 ABG Base Excess ABG Hemoglobin Oxyhemoglobin Sodium Potassium Chloride Carbon Dioxide BUN Creatinine Glucose POC Glucose 64 L 205 H Lactic Acid Calcium Phosphorus Magnesium Direct Bilirubin AST ALT Alkaline Phosphatase Lactate Dehydrogenase Troponin T C-Reactive Protein Total Protein Albumin Prealbumin Triglycerides Cholesterol LDL Cholesterol Direct HDL Cholesterol Urine pH Urine WBC (Auto) Urine Creatinine Urine Total Protein Fluid Total Protein Vancomycin Trough Rheumatoid Factor Complement C4 Miscellaneous Test Crossmatch 10/03/16 10/04/16 10/04/16 23:33 04:18 06:30 WBC RBC 2.54 L Hgb 7.1 L Hct 21.7 L MCV MCH MCHC RDW 19.5 H Plt Count 76 L Lymph % (Auto) [place] % (Auto) Lymph # [place] # Baso # Seg Neutrophils % Seg Neuts % (Manual) 88.0 H Lymphocytes % (Manual) 6.0 L Monocytes % (Manual) Eosinophils % (Manual) Basophils % (Manual) Nucleated RBC % Seg Neutrophils # Seg Neutrophils # Man 8.8 H Lymphocytes # (Manual) 0.6 L Monocytes # (Manual) Eosinophils # (Manual) Basophils # (Manual) PT INR Fibrinogen dRVVT Confirm Interp Factor V Activity POC ABG pH 7.461 H POC ABG pCO2 33.6 L POC ABG pO2 211 H ABG pO2 ABG HCO3 ABG Base Excess ABG Hemoglobin Oxyhemoglobin Sodium Potassium Chloride Carbon Dioxide BUN Creatinine Glucose POC Glucose 136 H Lactic Acid Calcium Phosphorus Magnesium Direct Bilirubin AST ALT Alkaline Phosphatase Lactate Dehydrogenase Troponin T C-Reactive Protein Total Protein Albumin Prealbumin Triglycerides Cholesterol LDL Cholesterol Direct HDL Cholesterol Urine pH Urine WBC (Auto) Urine Creatinine Urine Total Protein Fluid Total Protein Vancomycin Trough Rheumatoid Factor Complement C4 Miscellaneous Test Crossmatch 10/04/16 10/04/16 10/04/16 06:30 11:45 17:54 WBC RBC Hgb Hct MCV MCH MCHC RDW Plt Count Lymph % (Auto) [place] % (Auto) Lymph # [place] # Baso # Seg Neutrophils % Seg Neuts % (Manual) Lymphocytes % (Manual) Monocytes % (Manual) Eosinophils % (Manual) Basophils % (Manual) Nucleated RBC % Seg Neutrophils # Seg Neutrophils # Man Lymphocytes # (Manual) Monocytes # (Manual) Eosinophils # (Manual) Basophils # (Manual) PT INR Fibrinogen dRVVT Confirm Interp Factor V Activity POC ABG pH POC ABG pCO2 POC ABG pO2 ABG pO2 ABG HCO3 ABG Base Excess ABG Hemoglobin Oxyhemoglobin Sodium 128 L Potassium Chloride 87.4 L Carbon Dioxide 20 L BUN 34 H Creatinine 2.9 H Glucose 127 H POC Glucose 158 H 160 H Lactic Acid Calcium 7.4 L Phosphorus Magnesium Direct Bilirubin AST ALT Alkaline Phosphatase Lactate Dehydrogenase Troponin T C-Reactive Protein Total Protein Albumin Prealbumin Triglycerides Cholesterol LDL Cholesterol Direct HDL Cholesterol Urine pH Urine WBC (Auto) Urine Creatinine Urine Total Protein Fluid Total Protein Vancomycin Trough Rheumatoid Factor Complement C4 Miscellaneous Test Crossmatch 10/04/16 10/05/16 10/05/16 23:25 04:30 05:00 WBC RBC 2.64 L Hgb 7.5 L Hct 22.6 L MCV MCH MCHC RDW 19.3 H Plt Count 80 L Lymph % (Auto) [place] % (Auto) Lymph # [place] # Baso # Seg Neutrophils % Seg Neuts % (Manual) Lymphocytes % (Manual) 12.0 L Monocytes % (Manual) Eosinophils % (Manual) Basophils % (Manual) Nucleated RBC % Seg Neutrophils # Seg Neutrophils # Man Lymphocytes # (Manual) Monocytes # (Manual) Eosinophils # (Manual) Basophils # (Manual) PT INR Fibrinogen dRVVT Confirm Interp Factor V Activity POC ABG pH 7.475 H POC ABG pCO2 33.3 L POC ABG pO2 140 H ABG pO2 ABG HCO3 ABG Base Excess ABG Hemoglobin Oxyhemoglobin Sodium Potassium Chloride Carbon Dioxide BUN Creatinine Glucose POC Glucose 141 H Lactic Acid Calcium Phosphorus Magnesium Direct Bilirubin AST ALT Alkaline Phosphatase Lactate Dehydrogenase Troponin T C-Reactive Protein Total Protein Albumin Prealbumin Triglycerides Cholesterol LDL Cholesterol Direct HDL Cholesterol Urine pH Urine WBC (Auto) Urine Creatinine Urine Total Protein Fluid Total Protein Vancomycin Trough Rheumatoid Factor Complement C4 Miscellaneous Test Crossmatch 10/05/16 10/05/16 10/05/16 05:00 05:09 12:58 WBC RBC Hgb Hct MCV MCH MCHC RDW Plt Count Lymph % (Auto) [place] % (Auto) Lymph # [place] # Baso # Seg Neutrophils % Seg Neuts % (Manual) Lymphocytes % (Manual) Monocytes % (Manual) Eosinophils % (Manual) Basophils % (Manual) Nucleated RBC % Seg Neutrophils # Seg Neutrophils # Man Lymphocytes # (Manual) Monocytes # (Manual) Eosinophils # (Manual) Basophils # (Manual) PT INR Fibrinogen dRVVT Confirm Interp Factor V Activity POC ABG pH POC ABG pCO2 POC ABG pO2 ABG pO2 ABG HCO3 ABG Base Excess ABG Hemoglobin Oxyhemoglobin Sodium 131 L Potassium Chloride 94.0 L Carbon Dioxide 20 L BUN 22 H Creatinine 2.0 H Glucose 123 H POC Glucose 166 H 179 H Lactic Acid Calcium 7.7 L Phosphorus 2.20 L D Magnesium Direct Bilirubin AST ALT Alkaline Phosphatase Lactate Dehydrogenase Troponin T C-Reactive Protein Total Protein Albumin Prealbumin Triglycerides Cholesterol LDL Cholesterol Direct HDL Cholesterol Urine pH Urine WBC (Auto) Urine Creatinine Urine Total Protein Fluid Total Protein Vancomycin Trough Rheumatoid Factor Complement C4 Miscellaneous Test Crossmatch 10/05/16 10/05/16 10/05/16 15:50 18:53 23:12 WBC RBC Hgb Hct MCV MCH MCHC RDW Plt Count Lymph % (Auto) [place] % (Auto) Lymph # [place] # Baso # Seg Neutrophils % Seg Neuts % (Manual) Lymphocytes % (Manual) Monocytes % (Manual) Eosinophils % (Manual) Basophils % (Manual) Nucleated RBC % Seg Neutrophils # Seg Neutrophils # Man Lymphocytes # (Manual) Monocytes # (Manual) Eosinophils # (Manual) Basophils # (Manual) PT INR Fibrinogen dRVVT Confirm Interp Factor V Activity POC ABG pH POC ABG pCO2 POC ABG pO2 ABG pO2 ABG HCO3 ABG Base Excess ABG Hemoglobin Oxyhemoglobin Sodium Potassium Chloride Carbon Dioxide BUN Creatinine Glucose POC Glucose 150 H 164 H Lactic Acid Calcium Phosphorus Magnesium Direct Bilirubin AST ALT Alkaline Phosphatase Lactate Dehydrogenase Troponin T C-Reactive Protein Total Protein Albumin Prealbumin Triglycerides Cholesterol LDL Cholesterol Direct HDL Cholesterol Urine pH Urine WBC (Auto) Urine Creatinine Urine Total Protein Fluid Total Protein Vancomycin Trough Rheumatoid Factor Complement C4 Miscellaneous Test Crossmatch See Detail 10/06/16 10/06/16 10/06/16 03:50 03:50 04:53 WBC RBC 3.00 L Hgb 8.6 L Hct 25.8 L MCV MCH MCHC RDW 17.9 H Plt Count 65 L Lymph % (Auto) [place] % (Auto) Lymph # [place] # Baso # Seg Neutrophils % Seg Neuts % (Manual) 30.0 L Lymphocytes % (Manual) 5.0 L Monocytes % (Manual) Eosinophils % (Manual) Basophils % (Manual) Nucleated RBC % Seg Neutrophils # Seg Neutrophils # Man Lymphocytes # (Manual) 0.4 L Monocytes # (Manual) Eosinophils # (Manual) Basophils # (Manual) PT INR Fibrinogen dRVVT Confirm Interp Factor V Activity POC ABG pH 7.310 L POC ABG pCO2 49.0 H POC ABG pO2 ABG pO2 ABG HCO3 ABG Base Excess ABG Hemoglobin Oxyhemoglobin Sodium 133 L Potassium Chloride 95.9 L Carbon Dioxide BUN 26 H Creatinine 2.0 H Glucose 116 H POC Glucose Lactic Acid Calcium 7.8 L Phosphorus Magnesium Direct Bilirubin AST ALT Alkaline Phosphatase Lactate Dehydrogenase Troponin T C-Reactive Protein Total Protein Albumin Prealbumin Triglycerides Cholesterol LDL Cholesterol Direct HDL Cholesterol Urine pH Urine WBC (Auto) Urine Creatinine Urine Total Protein Fluid Total Protein Vancomycin Trough Rheumatoid Factor Complement C4 Miscellaneous Test Crossmatch 10/06/16 10/06/16 10/06/16 05:23 11:52 18:34 WBC RBC Hgb Hct MCV MCH MCHC RDW Plt Count Lymph % (Auto) [place] % (Auto) Lymph # [place] # Baso # Seg Neutrophils % Seg Neuts % (Manual) Lymphocytes % (Manual) Monocytes % (Manual) Eosinophils % (Manual) Basophils % (Manual) Nucleated RBC % Seg Neutrophils # Seg Neutrophils # Man Lymphocytes # (Manual) Monocytes # (Manual) Eosinophils # (Manual) Basophils # (Manual) PT INR Fibrinogen dRVVT Confirm Interp Factor V Activity POC ABG pH POC ABG pCO2 POC ABG pO2 ABG pO2 ABG HCO3 ABG Base Excess ABG Hemoglobin Oxyhemoglobin Sodium Potassium Chloride Carbon Dioxide BUN Creatinine Glucose POC Glucose 126 H 116 H 129 H Lactic Acid Calcium Phosphorus Magnesium Direct Bilirubin AST ALT Alkaline Phosphatase Lactate Dehydrogenase Troponin T C-Reactive Protein Total Protein Albumin Prealbumin Triglycerides Cholesterol LDL Cholesterol Direct HDL Cholesterol Urine pH Urine WBC (Auto) Urine Creatinine Urine Total Protein Fluid Total Protein Vancomycin Trough Rheumatoid Factor Complement C4 Miscellaneous Test Crossmatch 10/07/16 10/07/16 10/07/16 03:45 05:00 10:00 WBC 17.0 H RBC 2.68 L Hgb 7.3 L Hct 25.3 L MCV MCH 27 L MCHC 29 L RDW 19.6 H Plt Count 74 L Lymph % (Auto) [place] % (Auto) Lymph # [place] # Baso # Seg Neutrophils % Seg Neuts % (Manual) Lymphocytes % (Manual) 12.0 L Monocytes % (Manual) Eosinophils % (Manual) Basophils % (Manual) Nucleated RBC % 4.0 H Seg Neutrophils # Seg Neutrophils # Man 10.7 H Lymphocytes # (Manual) Monocytes # (Manual) Eosinophils # (Manual) Basophils # (Manual) PT INR Fibrinogen dRVVT Confirm Interp Factor V Activity POC ABG pH POC ABG pCO2 POC ABG pO2 ABG pO2 ABG HCO3 ABG Base Excess ABG Hemoglobin Oxyhemoglobin Sodium 130 L Potassium 3.2 L Chloride 93.9 L Carbon Dioxide 20 L BUN 44 H Creatinine 2.7 H Glucose 129 H POC Glucose Lactic Acid Calcium 7.4 L Phosphorus Magnesium Direct Bilirubin AST ALT 6 L Alkaline Phosphatase 195 H Lactate Dehydrogenase Troponin T C-Reactive Protein Total Protein 4.9 L Albumin 1.0 L Prealbumin Triglycerides Cholesterol LDL Cholesterol Direct HDL Cholesterol Urine pH Urine WBC (Auto) Urine Creatinine Urine Total Protein Fluid Total Protein Vancomycin Trough Rheumatoid Factor Complement C4 Miscellaneous Test Flexitest 1 H Crossmatch 10/07/16 10/07/16 10/07/16 10:00 11:24 18:10 WBC RBC Hgb Hct MCV MCH MCHC RDW Plt Count Lymph % (Auto) [place] % (Auto) Lymph # [place] # Baso # Seg Neutrophils % Seg Neuts % (Manual) Lymphocytes % (Manual) Monocytes % (Manual) Eosinophils % (Manual) Basophils % (Manual) Nucleated RBC % Seg Neutrophils # Seg Neutrophils # Man Lymphocytes # (Manual) Monocytes # (Manual) Eosinophils # (Manual) Basophils # (Manual) PT INR Fibrinogen dRVVT Confirm Interp Factor V Activity POC ABG pH POC ABG pCO2 POC ABG pO2 ABG pO2 ABG HCO3 ABG Base Excess ABG Hemoglobin Oxyhemoglobin Sodium Potassium Chloride Carbon Dioxide BUN Creatinine Glucose POC Glucose 116 H 130 H Lactic Acid Calcium Phosphorus Magnesium Direct Bilirubin AST ALT Alkaline Phosphatase Lactate Dehydrogenase Troponin T C-Reactive Protein 19.40 H Total Protein Albumin Prealbumin Triglycerides Cholesterol LDL Cholesterol Direct HDL Cholesterol Urine pH Urine WBC (Auto) Urine Creatinine Urine Total Protein Fluid Total Protein Vancomycin Trough Rheumatoid Factor Complement C4 Miscellaneous Test Crossmatch 10/07/16 10/08/16 10/08/16 18:30 00:00 04:00 WBC RBC Hgb Hct MCV MCH MCHC RDW Plt Count Lymph % (Auto) [place] % (Auto) Lymph # [place] # Baso # Seg Neutrophils % Seg Neuts % (Manual) Lymphocytes % (Manual) Monocytes % (Manual) Eosinophils % (Manual) Basophils % (Manual) Nucleated RBC % Seg Neutrophils # Seg Neutrophils # Man Lymphocytes # (Manual) Monocytes # (Manual) Eosinophils # (Manual) Basophils # (Manual) PT INR Fibrinogen dRVVT Confirm Interp Factor V Activity POC ABG pH POC ABG pCO2 POC ABG pO2 ABG pO2 ABG HCO3 ABG Base Excess ABG Hemoglobin Oxyhemoglobin Sodium 132 L Potassium 3.3 L Chloride 93.6 L Carbon Dioxide 17 L BUN 59 H Creatinine 2.7 H Glucose 121 H POC Glucose 122 H Lactic Acid Calcium 7.6 L Phosphorus Magnesium Direct Bilirubin AST ALT Alkaline Phosphatase Lactate Dehydrogenase Troponin T C-Reactive Protein Total Protein Albumin Prealbumin Triglycerides Cholesterol LDL Cholesterol Direct HDL Cholesterol Urine pH Urine WBC (Auto) > 182.0 H Urine Creatinine Urine Total Protein Fluid Total Protein Vancomycin Trough Rheumatoid Factor Complement C4 Miscellaneous Test Crossmatch 10/08/16 10/08/16 10/08/16 04:30 05:30 11:51 WBC RBC 5.15 H Hgb 14.4 H D Hct 44.5 H D MCV MCH MCHC RDW 19.5 H Plt Count 56 L Lymph % (Auto) [place] % (Auto) Lymph # [place] # Baso # Seg Neutrophils % Seg Neuts % (Manual) 24.0 L Lymphocytes % (Manual) 8.0 L Monocytes % (Manual) Eosinophils % (Manual) Basophils % (Manual) Nucleated RBC % 9.0 H Seg Neutrophils # Seg Neutrophils # Man Lymphocytes # (Manual) 0.7 L Monocytes # (Manual) Eosinophils # (Manual) Basophils # (Manual) PT INR Fibrinogen dRVVT Confirm Interp Factor V Activity POC ABG pH POC ABG pCO2 POC ABG pO2 ABG pO2 ABG HCO3 ABG Base Excess ABG Hemoglobin Oxyhemoglobin Sodium Potassium Chloride Carbon Dioxide BUN Creatinine Glucose POC Glucose 125 H 150 H Lactic Acid Calcium Phosphorus Magnesium Direct Bilirubin AST ALT Alkaline Phosphatase Lactate Dehydrogenase Troponin T C-Reactive Protein Total Protein Albumin Prealbumin Triglycerides Cholesterol LDL Cholesterol Direct HDL Cholesterol Urine pH Urine WBC (Auto) Urine Creatinine Urine Total Protein Fluid Total Protein Vancomycin Trough Rheumatoid Factor Complement C4 Miscellaneous Test Crossmatch 10/08/16 10/08/16 10/08/16 12:49 17:07 19:30 WBC RBC Hgb 7.1 L D Hct 22.4 L D MCV MCH MCHC RDW Plt Count Lymph % (Auto) [place] % (Auto) Lymph # [place] # Baso # Seg Neutrophils % Seg Neuts % (Manual) Lymphocytes % (Manual) Monocytes % (Manual) Eosinophils % (Manual) Basophils % (Manual) Nucleated RBC % Seg Neutrophils # Seg Neutrophils # Man Lymphocytes # (Manual) Monocytes # (Manual) Eosinophils # (Manual) Basophils # (Manual) PT INR Fibrinogen dRVVT Confirm Interp Factor V Activity POC ABG pH POC ABG pCO2 28.2 L POC ABG pO2 111 H ABG pO2 ABG HCO3 ABG Base Excess ABG Hemoglobin Oxyhemoglobin Sodium Potassium Chloride Carbon Dioxide BUN Creatinine Glucose POC Glucose 145 H Lactic Acid Calcium Phosphorus Magnesium Direct Bilirubin AST ALT Alkaline Phosphatase Lactate Dehydrogenase Troponin T C-Reactive Protein Total Protein Albumin Prealbumin Triglycerides Cholesterol LDL Cholesterol Direct HDL Cholesterol Urine pH Urine WBC (Auto) Urine Creatinine Urine Total Protein Fluid Total Protein Vancomycin Trough Rheumatoid Factor Complement C4 Miscellaneous Test Crossmatch 10/08/16 10/09/16 10/09/16 19:30 03:45 03:45 WBC 12.6 H RBC 2.36 L Hgb 6.7 L Hct 21.1 L MCV MCH MCHC RDW 19.5 H Plt Count 75 L Lymph % (Auto) [place] % (Auto) Lymph # [place] # Baso # Seg Neutrophils % Seg Neuts % (Manual) Lymphocytes % (Manual) Monocytes % (Manual) 10.0 H Eosinophils % (Manual) Basophils % (Manual) Nucleated RBC % 3.0 H Seg Neutrophils # Seg Neutrophils # Man Lymphocytes # (Manual) Monocytes # (Manual) 1.3 H Eosinophils # (Manual) Basophils # (Manual) PT 18.0 H INR 1.41 H Fibrinogen dRVVT Confirm Interp Factor V Activity POC ABG pH POC ABG pCO2 POC ABG pO2 ABG pO2 ABG HCO3 ABG Base Excess ABG Hemoglobin Oxyhemoglobin Sodium 135 L Potassium Chloride Carbon Dioxide 17 L BUN 81 H Creatinine 3.2 H Glucose 109 H POC Glucose Lactic Acid Calcium 7.4 L Phosphorus 4.60 H D Magnesium Direct Bilirubin AST ALT Alkaline Phosphatase Lactate Dehydrogenase Troponin T C-Reactive Protein Total Protein Albumin Prealbumin Triglycerides Cholesterol LDL Cholesterol Direct HDL Cholesterol Urine pH Urine WBC (Auto) Urine Creatinine Urine Total Protein Fluid Total Protein Vancomycin Trough Rheumatoid Factor Complement C4 Miscellaneous Test Crossmatch 10/09/16 10/09/16 10/09/16 03:45 05:14 07:20 WBC RBC Hgb Hct MCV MCH MCHC RDW Plt Count Lymph % (Auto) [place] % (Auto) Lymph # [place] # Baso # Seg Neutrophils % Seg Neuts % (Manual) Lymphocytes % (Manual) Monocytes % (Manual) Eosinophils % (Manual) Basophils % (Manual) Nucleated RBC % Seg Neutrophils # Seg Neutrophils # Man Lymphocytes # (Manual) Monocytes # (Manual) Eosinophils # (Manual) Basophils # (Manual) PT 19.0 H INR 1.51 H Fibrinogen dRVVT Confirm Interp Factor V Activity POC ABG pH POC ABG pCO2 POC ABG pO2 ABG pO2 ABG HCO3 ABG Base Excess ABG Hemoglobin Oxyhemoglobin Sodium Potassium Chloride Carbon Dioxide BUN Creatinine Glucose POC Glucose 151 H Lactic Acid Calcium Phosphorus Magnesium Direct Bilirubin AST ALT Alkaline Phosphatase Lactate Dehydrogenase Troponin T C-Reactive Protein Total Protein Albumin Prealbumin Triglycerides Cholesterol LDL Cholesterol Direct HDL Cholesterol Urine pH Urine WBC (Auto) Urine Creatinine Urine Total Protein Fluid Total Protein Vancomycin Trough Rheumatoid Factor Complement C4 Miscellaneous Test Crossmatch See Detail 10/09/16 10/09/16 10/09/16 11:46 16:20 16:43 WBC RBC Hgb 7.2 L Hct 22.2 L MCV MCH MCHC RDW Plt Count Lymph % (Auto) [place] % (Auto) Lymph # [place] # Baso # Seg Neutrophils % Seg Neuts % (Manual) Lymphocytes % (Manual) Monocytes % (Manual) Eosinophils % (Manual) Basophils % (Manual) Nucleated RBC % Seg Neutrophils # Seg Neutrophils # Man Lymphocytes # (Manual) Monocytes # (Manual) Eosinophils # (Manual) Basophils # (Manual) PT INR Fibrinogen dRVVT Confirm Interp Factor V Activity POC ABG pH POC ABG pCO2 POC ABG pO2 ABG pO2 ABG HCO3 ABG Base Excess ABG Hemoglobin Oxyhemoglobin Sodium Potassium Chloride Carbon Dioxide BUN Creatinine Glucose POC Glucose 133 H 141 H Lactic Acid Calcium Phosphorus Magnesium Direct Bilirubin AST ALT Alkaline Phosphatase Lactate Dehydrogenase Troponin T C-Reactive Protein Total Protein Albumin Prealbumin Triglycerides Cholesterol LDL Cholesterol Direct HDL Cholesterol Urine pH Urine WBC (Auto) Urine Creatinine Urine Total Protein Fluid Total Protein Vancomycin Trough Rheumatoid Factor Complement C4 Miscellaneous Test Crossmatch 10/10/16 10/10/16 10/10/16 05:00 05:00 11:19 WBC 18.5 H RBC 2.19 L Hgb 6.4 L Hct 19.6 L* MCV MCH MCHC RDW 19.3 H Plt Count 93 L Lymph % (Auto) [place] % (Auto) Lymph # [place] # Baso # Seg Neutrophils % Seg Neuts % (Manual) Lymphocytes % (Manual) 10.0 L Monocytes % (Manual) Eosinophils % (Manual) Basophils % (Manual) Nucleated RBC % 4.0 H Seg Neutrophils # Seg Neutrophils # Man 11.3 H Lymphocytes # (Manual) Monocytes # (Manual) Eosinophils # (Manual) Basophils # (Manual) PT INR Fibrinogen dRVVT Confirm Interp Factor V Activity POC ABG pH POC ABG pCO2 POC ABG pO2 ABG pO2 ABG HCO3 ABG Base Excess ABG Hemoglobin Oxyhemoglobin Sodium Potassium 5.7 H D Chloride Carbon Dioxide 16 L BUN 94 H Creatinine 3.1 H Glucose 131 H POC Glucose 153 H Lactic Acid Calcium 8.2 L Phosphorus 5.10 H Magnesium 2.40 H Direct Bilirubin 0.3 H AST ALT < 5 L Alkaline Phosphatase 319 H Lactate Dehydrogenase Troponin T C-Reactive Protein Total Protein 5.1 L Albumin 1.0 L Prealbumin Triglycerides Cholesterol LDL Cholesterol Direct HDL Cholesterol Urine pH Urine WBC (Auto) Urine Creatinine Urine Total Protein Fluid Total Protein Vancomycin Trough Rheumatoid Factor Complement C4 Miscellaneous Test Crossmatch 10/10/16 10/10/16 10/11/16 17:50 23:30 04:15 WBC RBC Hgb Hct MCV MCH MCHC RDW Plt Count Lymph % (Auto) [place] % (Auto) Lymph # [place] # Baso # Seg Neutrophils % Seg Neuts % (Manual) Lymphocytes % (Manual) Monocytes % (Manual) Eosinophils % (Manual) Basophils % (Manual) Nucleated RBC % Seg Neutrophils # Seg Neutrophils # Man Lymphocytes # (Manual) Monocytes # (Manual) Eosinophils # (Manual) Basophils # (Manual) PT INR Fibrinogen dRVVT Confirm Interp Factor V Activity POC ABG pH POC ABG pCO2 POC ABG pO2 ABG pO2 ABG HCO3 ABG Base Excess ABG Hemoglobin Oxyhemoglobin Sodium Potassium Chloride 96.4 L Carbon Dioxide 21 L BUN 57 H Creatinine 2.1 H Glucose 151 H POC Glucose 146 H 141 H Lactic Acid Calcium 8.3 L Phosphorus Magnesium Direct Bilirubin AST ALT Alkaline Phosphatase Lactate Dehydrogenase Troponin T C-Reactive Protein Total Protein Albumin Prealbumin Triglycerides Cholesterol LDL Cholesterol Direct HDL Cholesterol Urine pH Urine WBC (Auto) Urine Creatinine Urine Total Protein Fluid Total Protein Vancomycin Trough Rheumatoid Factor Complement C4 Miscellaneous Test Crossmatch 10/11/16 10/11/16 10/11/16 04:15 04:15 05:30 WBC 28.3 H RBC 3.12 L Hgb 9.3 L Hct 28.7 L D MCV MCH MCHC RDW 17.7 H Plt Count 128 L Lymph % (Auto) [place] % (Auto) Lymph # [place] # Baso # Seg Neutrophils % Seg Neuts % (Manual) Lymphocytes % (Manual) Monocytes % (Manual) Eosinophils % (Manual) Basophils % (Manual) Nucleated RBC % Seg Neutrophils # Seg Neutrophils # Man Lymphocytes # (Manual) Monocytes # (Manual) Eosinophils # (Manual) Basophils # (Manual) PT INR Fibrinogen dRVVT Confirm Interp Factor V Activity POC ABG pH POC ABG pCO2 POC ABG pO2 ABG pO2 ABG HCO3 ABG Base Excess ABG Hemoglobin Oxyhemoglobin Sodium Potassium Chloride Carbon Dioxide BUN Creatinine Glucose POC Glucose 167 H Lactic Acid Calcium Phosphorus Magnesium Direct Bilirubin AST ALT Alkaline Phosphatase Lactate Dehydrogenase Troponin T C-Reactive Protein 15.80 H Total Protein Albumin Prealbumin Triglycerides Cholesterol LDL Cholesterol Direct HDL Cholesterol Urine pH Urine WBC (Auto) Urine Creatinine Urine Total Protein Fluid Total Protein Vancomycin Trough Rheumatoid Factor Complement C4 Miscellaneous Test Crossmatch 10/11/16 10/11/16 10/11/16 11:40 15:49 23:57 WBC RBC Hgb Hct MCV MCH MCHC RDW Plt Count Lymph % (Auto) [place] % (Auto) Lymph # [place] # Baso # Seg Neutrophils % Seg Neuts % (Manual) Lymphocytes % (Manual) Monocytes % (Manual) Eosinophils % (Manual) Basophils % (Manual) Nucleated RBC % Seg Neutrophils # Seg Neutrophils # Man Lymphocytes # (Manual) Monocytes # (Manual) Eosinophils # (Manual) Basophils # (Manual) PT INR Fibrinogen dRVVT Confirm Interp Factor V Activity POC ABG pH POC ABG pCO2 POC ABG pO2 ABG pO2 ABG HCO3 ABG Base Excess ABG Hemoglobin Oxyhemoglobin Sodium Potassium Chloride Carbon Dioxide BUN Creatinine Glucose POC Glucose 139 H 168 H 161 H Lactic Acid Calcium Phosphorus Magnesium Direct Bilirubin AST ALT Alkaline Phosphatase Lactate Dehydrogenase Troponin T C-Reactive Protein Total Protein Albumin Prealbumin Triglycerides Cholesterol LDL Cholesterol Direct HDL Cholesterol Urine pH Urine WBC (Auto) Urine Creatinine Urine Total Protein Fluid Total Protein Vancomycin Trough Rheumatoid Factor Complement C4 Miscellaneous Test Crossmatch 10/12/16 10/12/16 10/12/16 04:40 04:40 05:44 WBC 22.5 H RBC 2.88 L Hgb 8.8 L Hct 26.8 L MCV MCH MCHC RDW 17.8 H Plt Count Lymph % (Auto) [place] % (Auto) Lymph # [place] # Baso # Seg Neutrophils % Seg Neuts % (Manual) Lymphocytes % (Manual) Monocytes % (Manual) Eosinophils % (Manual) Basophils % (Manual) Nucleated RBC % Seg Neutrophils # Seg Neutrophils # Man Lymphocytes # (Manual) Monocytes # (Manual) Eosinophils # (Manual) Basophils # (Manual) PT INR Fibrinogen dRVVT Confirm Interp Factor V Activity POC ABG pH POC ABG pCO2 POC ABG pO2 ABG pO2 ABG HCO3 ABG Base Excess ABG Hemoglobin Oxyhemoglobin Sodium 134 L Potassium Chloride 93.0 L Carbon Dioxide BUN 74 H Creatinine 2.5 H Glucose 137 H POC Glucose 158 H Lactic Acid Calcium 8.2 L Phosphorus Magnesium Direct Bilirubin AST ALT Alkaline Phosphatase Lactate Dehydrogenase Troponin T C-Reactive Protein Total Protein Albumin Prealbumin Triglycerides Cholesterol LDL Cholesterol Direct HDL Cholesterol Urine pH Urine WBC (Auto) Urine Creatinine Urine Total Protein Fluid Total Protein Vancomycin Trough Rheumatoid Factor Complement C4 Miscellaneous Test Crossmatch 10/12/16 10/12/16 10/12/16 12:27 18:18 23:46 WBC RBC Hgb Hct MCV MCH MCHC RDW Plt Count Lymph % (Auto) [place] % (Auto) Lymph # [place] # Baso # Seg Neutrophils % Seg Neuts % (Manual) Lymphocytes % (Manual) Monocytes % (Manual) Eosinophils % (Manual) Basophils % (Manual) Nucleated RBC % Seg Neutrophils # Seg Neutrophils # Man Lymphocytes # (Manual) Monocytes # (Manual) Eosinophils # (Manual) Basophils # (Manual) PT INR Fibrinogen dRVVT Confirm Interp Factor V Activity POC ABG pH POC ABG pCO2 POC ABG pO2 ABG pO2 ABG HCO3 ABG Base Excess ABG Hemoglobin Oxyhemoglobin Sodium Potassium Chloride Carbon Dioxide BUN Creatinine Glucose POC Glucose 153 H 140 H 150 H Lactic Acid Calcium Phosphorus Magnesium Direct Bilirubin AST ALT Alkaline Phosphatase Lactate Dehydrogenase Troponin T C-Reactive Protein Total Protein Albumin Prealbumin Triglycerides Cholesterol LDL Cholesterol Direct HDL Cholesterol Urine pH Urine WBC (Auto) Urine Creatinine Urine Total Protein Fluid Total Protein Vancomycin Trough Rheumatoid Factor Complement C4 Miscellaneous Test Crossmatch 10/13/16 10/13/16 10/13/16 06:22 09:20 12:29 WBC RBC Hgb Hct MCV MCH MCHC RDW Plt Count Lymph % (Auto) [place] % (Auto) Lymph # [place] # Baso # Seg Neutrophils % Seg Neuts % (Manual) Lymphocytes % (Manual) Monocytes % (Manual) Eosinophils % (Manual) Basophils % (Manual) Nucleated RBC % Seg Neutrophils # Seg Neutrophils # Man Lymphocytes # (Manual) Monocytes # (Manual) Eosinophils # (Manual) Basophils # (Manual) PT INR Fibrinogen dRVVT Confirm Interp Factor V Activity POC ABG pH POC ABG pCO2 POC ABG pO2 ABG pO2 ABG HCO3 ABG Base Excess ABG Hemoglobin Oxyhemoglobin Sodium Potassium Chloride Carbon Dioxide BUN Creatinine Glucose POC Glucose 165 H 193 H Lactic Acid Calcium Phosphorus Magnesium Direct Bilirubin AST ALT Alkaline Phosphatase Lactate Dehydrogenase Troponin T C-Reactive Protein Total Protein Albumin Prealbumin Triglycerides Cholesterol LDL Cholesterol Direct HDL Cholesterol Urine pH Urine WBC (Auto) Urine Creatinine Urine Total Protein Fluid Total Protein Vancomycin Trough Rheumatoid Factor Complement C4 Miscellaneous Test Flexitest 1 H Crossmatch 10/13/16 10/13/16 10/13/16 18:09 Unknown Unknown WBC 23.4 H RBC 2.83 L Hgb 8.7 L Hct 26.1 L MCV MCH MCHC RDW 18.1 H Plt Count Lymph % (Auto) [place] % (Auto) Lymph # [place] # Baso # Seg Neutrophils % Seg Neuts % (Manual) Lymphocytes % (Manual) Monocytes % (Manual) Eosinophils % (Manual) Basophils % (Manual) Nucleated RBC % Seg Neutrophils # Seg Neutrophils # Man Lymphocytes # (Manual) Monocytes # (Manual) Eosinophils # (Manual) Basophils # (Manual) PT INR Fibrinogen dRVVT Confirm Interp Factor V Activity POC ABG pH POC ABG pCO2 POC ABG pO2 ABG pO2 ABG HCO3 ABG Base Excess ABG Hemoglobin Oxyhemoglobin Sodium Potassium Chloride 95.8 L Carbon Dioxide BUN 82 H Creatinine 2.6 H Glucose 152 H POC Glucose 166 H Lactic Acid Calcium Phosphorus Magnesium Direct Bilirubin AST ALT Alkaline Phosphatase Lactate Dehydrogenase Troponin T C-Reactive Protein Total Protein Albumin Prealbumin Triglycerides Cholesterol LDL Cholesterol Direct HDL Cholesterol Urine pH Urine WBC (Auto) Urine Creatinine Urine Total Protein Fluid Total Protein Vancomycin Trough Rheumatoid Factor Complement C4 Miscellaneous Test Crossmatch 10/14/16 10/14/16 10/14/16 05:38 06:35 08:10 WBC 20.7 H RBC 2.81 L Hgb 8.4 L Hct 27.2 L MCV MCH MCHC RDW 19.4 H Plt Count Lymph % (Auto) [place] % (Auto) Lymph # [place] # Baso # Seg Neutrophils % Seg Neuts % (Manual) Lymphocytes % (Manual) Monocytes % (Manual) Eosinophils % (Manual) Basophils % (Manual) Nucleated RBC % Seg Neutrophils # Seg Neutrophils # Man Lymphocytes # (Manual) Monocytes # (Manual) Eosinophils # (Manual) Basophils # (Manual) PT INR Fibrinogen dRVVT Confirm Interp Factor V Activity POC ABG pH POC ABG pCO2 POC ABG pO2 ABG pO2 ABG HCO3 ABG Base Excess ABG Hemoglobin Oxyhemoglobin Sodium Potassium Chloride Carbon Dioxide BUN 58 H Creatinine 1.9 H Glucose 169 H POC Glucose 195 H Lactic Acid Calcium Phosphorus Magnesium Direct Bilirubin AST ALT Alkaline Phosphatase Lactate Dehydrogenase Troponin T C-Reactive Protein Total Protein Albumin Prealbumin Triglycerides Cholesterol LDL Cholesterol Direct HDL Cholesterol Urine pH Urine WBC (Auto) Urine Creatinine Urine Total Protein Fluid Total Protein Vancomycin Trough Rheumatoid Factor Complement C4 Miscellaneous Test Crossmatch 10/14/16 10/14/16 10/14/16 11:44 17:13 23:28 WBC RBC Hgb Hct MCV MCH MCHC RDW Plt Count Lymph % (Auto) [place] % (Auto) Lymph # [place] # Baso # Seg Neutrophils % Seg Neuts % (Manual) Lymphocytes % (Manual) Monocytes % (Manual) Eosinophils % (Manual) Basophils % (Manual) Nucleated RBC % Seg Neutrophils # Seg Neutrophils # Man Lymphocytes # (Manual) Monocytes # (Manual) Eosinophils # (Manual) Basophils # (Manual) PT INR Fibrinogen dRVVT Confirm Interp Factor V Activity POC ABG pH POC ABG pCO2 POC ABG pO2 ABG pO2 ABG HCO3 ABG Base Excess ABG Hemoglobin Oxyhemoglobin Sodium Potassium Chloride Carbon Dioxide BUN Creatinine Glucose POC Glucose 174 H 121 H 151 H Lactic Acid Calcium Phosphorus Magnesium Direct Bilirubin AST ALT Alkaline Phosphatase Lactate Dehydrogenase Troponin T C-Reactive Protein Total Protein Albumin Prealbumin Triglycerides Cholesterol LDL Cholesterol Direct HDL Cholesterol Urine pH Urine WBC (Auto) Urine Creatinine Urine Total Protein Fluid Total Protein Vancomycin Trough Rheumatoid Factor Complement C4 Miscellaneous Test Crossmatch 10/15/16 10/15/16 10/15/16 05:06 12:26 17:48 WBC RBC Hgb Hct MCV MCH MCHC RDW Plt Count Lymph % (Auto) [place] % (Auto) Lymph # [place] # Baso # Seg Neutrophils % Seg Neuts % (Manual) Lymphocytes % (Manual) Monocytes % (Manual) Eosinophils % (Manual) Basophils % (Manual) Nucleated RBC % Seg Neutrophils # Seg Neutrophils # Man Lymphocytes # (Manual) Monocytes # (Manual) Eosinophils # (Manual) Basophils # (Manual) PT INR Fibrinogen dRVVT Confirm Interp Factor V Activity POC ABG pH POC ABG pCO2 POC ABG pO2 ABG pO2 ABG HCO3 ABG Base Excess ABG Hemoglobin Oxyhemoglobin Sodium Potassium Chloride Carbon Dioxide BUN Creatinine Glucose POC Glucose 151 H 149 H 153 H Lactic Acid Calcium Phosphorus Magnesium Direct Bilirubin AST ALT Alkaline Phosphatase Lactate Dehydrogenase Troponin T C-Reactive Protein Total Protein Albumin Prealbumin Triglycerides Cholesterol LDL Cholesterol Direct HDL Cholesterol Urine pH Urine WBC (Auto) Urine Creatinine Urine Total Protein Fluid Total Protein Vancomycin Trough Rheumatoid Factor Complement C4 Miscellaneous Test Crossmatch 10/15/16 10/15/16 10/16/16 Unknown Unknown 00:02 WBC 23.4 H RBC 2.78 L Hgb 8.5 L Hct 25.7 L MCV MCH MCHC RDW 18.7 H Plt Count Lymph % (Auto) [place] % (Auto) Lymph # [place] # Baso # Seg Neutrophils % Seg Neuts % (Manual) Lymphocytes % (Manual) Monocytes % (Manual) Eosinophils % (Manual) Basophils % (Manual) Nucleated RBC % Seg Neutrophils # Seg Neutrophils # Man Lymphocytes # (Manual) Monocytes # (Manual) Eosinophils # (Manual) Basophils # (Manual) PT INR Fibrinogen dRVVT Confirm Interp Factor V Activity POC ABG pH POC ABG pCO2 POC ABG pO2 ABG pO2 ABG HCO3 ABG Base Excess ABG Hemoglobin Oxyhemoglobin Sodium Potassium Chloride Carbon Dioxide BUN 73 H Creatinine 2.3 H Glucose 120 H POC Glucose 137 H Lactic Acid Calcium Phosphorus Magnesium Direct Bilirubin AST ALT Alkaline Phosphatase Lactate Dehydrogenase Troponin T C-Reactive Protein Total Protein Albumin Prealbumin Triglycerides Cholesterol LDL Cholesterol Direct HDL Cholesterol Urine pH Urine WBC (Auto) Urine Creatinine Urine Total Protein Fluid Total Protein Vancomycin Trough Rheumatoid Factor Complement C4 Miscellaneous Test Crossmatch 10/16/16 10/16/16 10/16/16 05:44 06:25 06:25 WBC 22.5 H RBC 2.76 L Hgb 8.3 L Hct 25.2 L MCV MCH MCHC RDW 18.3 H Plt Count Lymph % (Auto) [place] % (Auto) Lymph # [place] # Baso # Seg Neutrophils % Seg Neuts % (Manual) Lymphocytes % (Manual) Monocytes % (Manual) Eosinophils % (Manual) Basophils % (Manual) Nucleated RBC % Seg Neutrophils # Seg Neutrophils # Man Lymphocytes # (Manual) Monocytes # (Manual) Eosinophils # (Manual) Basophils # (Manual) PT INR Fibrinogen dRVVT Confirm Interp Factor V Activity POC ABG pH POC ABG pCO2 POC ABG pO2 ABG pO2 ABG HCO3 ABG Base Excess ABG Hemoglobin Oxyhemoglobin Sodium Potassium Chloride Carbon Dioxide BUN 92 H Creatinine 3.0 H Glucose 138 H POC Glucose 110 H Lactic Acid Calcium Phosphorus Magnesium Direct Bilirubin AST ALT Alkaline Phosphatase Lactate Dehydrogenase Troponin T C-Reactive Protein Total Protein Albumin Prealbumin Triglycerides Cholesterol LDL Cholesterol Direct HDL Cholesterol Urine pH Urine WBC (Auto) Urine Creatinine Urine Total Protein Fluid Total Protein Vancomycin Trough Rheumatoid Factor Complement C4 Miscellaneous Test Crossmatch 10/16/16 10/16/16 10/16/16 11:27 11:48 17:36 WBC RBC Hgb Hct MCV MCH MCHC RDW Plt Count Lymph % (Auto) [place] % (Auto) Lymph # [place] # Baso # Seg Neutrophils % Seg Neuts % (Manual) Lymphocytes % (Manual) Monocytes % (Manual) Eosinophils % (Manual) Basophils % (Manual) Nucleated RBC % Seg Neutrophils # Seg Neutrophils # Man Lymphocytes # (Manual) Monocytes # (Manual) Eosinophils # (Manual) Basophils # (Manual) PT INR Fibrinogen dRVVT Confirm Interp Factor V Activity POC ABG pH 7.582 H POC ABG pCO2 27.4 L POC ABG pO2 110 H ABG pO2 ABG HCO3 ABG Base Excess ABG Hemoglobin Oxyhemoglobin Sodium Potassium Chloride Carbon Dioxide BUN Creatinine Glucose POC Glucose 121 H 133 H Lactic Acid Calcium Phosphorus Magnesium Direct Bilirubin AST ALT Alkaline Phosphatase Lactate Dehydrogenase Troponin T C-Reactive Protein Total Protein Albumin Prealbumin Triglycerides Cholesterol LDL Cholesterol Direct HDL Cholesterol Urine pH Urine WBC (Auto) Urine Creatinine Urine Total Protein Fluid Total Protein Vancomycin Trough Rheumatoid Factor Complement C4 Miscellaneous Test Crossmatch 10/16/16 10/17/16 10/17/16 20:48 04:24 04:24 WBC 21.4 H RBC 2.72 L Hgb 8.0 L Hct 25.2 L MCV MCH MCHC RDW 18.0 H Plt Count Lymph % (Auto) [place] % (Auto) Lymph # [place] # Baso # Seg Neutrophils % Seg Neuts % (Manual) Lymphocytes % (Manual) Monocytes % (Manual) Eosinophils % (Manual) Basophils % (Manual) Nucleated RBC % Seg Neutrophils # Seg Neutrophils # Man Lymphocytes # (Manual) Monocytes # (Manual) Eosinophils # (Manual) Basophils # (Manual) PT INR Fibrinogen dRVVT Confirm Interp Factor V Activity POC ABG pH 7.561 H POC ABG pCO2 24.4 L POC ABG pO2 77 L ABG pO2 ABG HCO3 ABG Base Excess ABG Hemoglobin Oxyhemoglobin Sodium 148 H Potassium Chloride Carbon Dioxide BUN 104 H Creatinine 3.0 H Glucose 149 H POC Glucose Lactic Acid Calcium Phosphorus Magnesium Direct Bilirubin AST ALT Alkaline Phosphatase 138 H Lactate Dehydrogenase Troponin T C-Reactive Protein Total Protein 6.2 L Albumin 1.5 L Prealbumin Triglycerides Cholesterol LDL Cholesterol Direct HDL Cholesterol Urine pH Urine WBC (Auto) Urine Creatinine Urine Total Protein Fluid Total Protein Vancomycin Trough Rheumatoid Factor Complement C4 Miscellaneous Test Crossmatch 10/17/16 10/17/16 10/17/16 06:02 12:17 17:14 WBC RBC Hgb Hct MCV MCH MCHC RDW Plt Count Lymph % (Auto) [place] % (Auto) Lymph # [place] # Baso # Seg Neutrophils % Seg Neuts % (Manual) Lymphocytes % (Manual) Monocytes % (Manual) Eosinophils % (Manual) Basophils % (Manual) Nucleated RBC % Seg Neutrophils # Seg Neutrophils # Man Lymphocytes # (Manual) Monocytes # (Manual) Eosinophils # (Manual) Basophils # (Manual) PT INR Fibrinogen dRVVT Confirm Interp Factor V Activity POC ABG pH POC ABG pCO2 POC ABG pO2 ABG pO2 ABG HCO3 ABG Base Excess ABG Hemoglobin Oxyhemoglobin Sodium Potassium Chloride Carbon Dioxide BUN Creatinine Glucose POC Glucose 170 H 167 H 126 H Lactic Acid Calcium Phosphorus Magnesium Direct Bilirubin AST ALT Alkaline Phosphatase Lactate Dehydrogenase Troponin T C-Reactive Protein Total Protein Albumin Prealbumin Triglycerides Cholesterol LDL Cholesterol Direct HDL Cholesterol Urine pH Urine WBC (Auto) Urine Creatinine Urine Total Protein Fluid Total Protein Vancomycin Trough Rheumatoid Factor Complement C4 Miscellaneous Test Crossmatch 10/17/16 10/18/16 10/18/16 23:17 04:00 04:00 WBC 20.7 H RBC 2.47 L Hgb 7.4 L Hct 22.9 L MCV MCH MCHC RDW 17.5 H Plt Count Lymph % (Auto) [place] % (Auto) Lymph # [place] # Baso # Seg Neutrophils % Seg Neuts % (Manual) Lymphocytes % (Manual) Monocytes % (Manual) Eosinophils % (Manual) Basophils % (Manual) Nucleated RBC % Seg Neutrophils # Seg Neutrophils # Man Lymphocytes # (Manual) Monocytes # (Manual) Eosinophils # (Manual) Basophils # (Manual) PT INR Fibrinogen dRVVT Confirm Interp Factor V Activity POC ABG pH POC ABG pCO2 POC ABG pO2 ABG pO2 ABG HCO3 ABG Base Excess ABG Hemoglobin Oxyhemoglobin Sodium 149 H Potassium Chloride 107.9 H Carbon Dioxide 20 L BUN 117 H Creatinine 3.2 H Glucose 119 H POC Glucose 121 H Lactic Acid Calcium Phosphorus Magnesium Direct Bilirubin AST ALT Alkaline Phosphatase Lactate Dehydrogenase Troponin T C-Reactive Protein Total Protein Albumin Prealbumin Triglycerides Cholesterol LDL Cholesterol Direct HDL Cholesterol Urine pH Urine WBC (Auto) Urine Creatinine Urine Total Protein Fluid Total Protein Vancomycin Trough Rheumatoid Factor Complement C4 Miscellaneous Test Crossmatch 10/18/16 10/18/16 10/18/16 05:23 10:46 17:30 WBC RBC Hgb Hct MCV MCH MCHC RDW Plt Count Lymph % (Auto) [place] % (Auto) Lymph # [place] # Baso # Seg Neutrophils % Seg Neuts % (Manual) Lymphocytes % (Manual) Monocytes % (Manual) Eosinophils % (Manual) Basophils % (Manual) Nucleated RBC % Seg Neutrophils # Seg Neutrophils # Man Lymphocytes # (Manual) Monocytes # (Manual) Eosinophils # (Manual) Basophils # (Manual) PT INR Fibrinogen dRVVT Confirm Interp Factor V Activity POC ABG pH POC ABG pCO2 POC ABG pO2 ABG pO2 ABG HCO3 ABG Base Excess ABG Hemoglobin Oxyhemoglobin Sodium Potassium Chloride Carbon Dioxide BUN Creatinine Glucose POC Glucose 119 H 155 H 124 H Lactic Acid Calcium Phosphorus Magnesium Direct Bilirubin AST ALT Alkaline Phosphatase Lactate Dehydrogenase Troponin T C-Reactive Protein Total Protein Albumin Prealbumin Triglycerides Cholesterol LDL Cholesterol Direct HDL Cholesterol Urine pH Urine WBC (Auto) Urine Creatinine Urine Total Protein Fluid Total Protein Vancomycin Trough Rheumatoid Factor Complement C4 Miscellaneous Test Crossmatch 10/19/16 10/19/16 10/19/16 04:00 04:00 05:25 WBC 17.4 H RBC 2.54 L Hgb 7.7 L Hct 23.6 L MCV MCH MCHC RDW 17.3 H Plt Count Lymph % (Auto) [place] % (Auto) Lymph # [place] # Baso # Seg Neutrophils % Seg Neuts % (Manual) Lymphocytes % (Manual) Monocytes % (Manual) Eosinophils % (Manual) Basophils % (Manual) Nucleated RBC % Seg Neutrophils # Seg Neutrophils # Man Lymphocytes # (Manual) Monocytes # (Manual) Eosinophils # (Manual) Basophils # (Manual) PT INR Fibrinogen dRVVT Confirm Interp Factor V Activity POC ABG pH POC ABG pCO2 POC ABG pO2 ABG pO2 ABG HCO3 ABG Base Excess ABG Hemoglobin Oxyhemoglobin Sodium Potassium Chloride Carbon Dioxide BUN 72 H Creatinine 2.1 H Glucose 116 H POC Glucose 119 H Lactic Acid Calcium Phosphorus Magnesium Direct Bilirubin AST ALT Alkaline Phosphatase Lactate Dehydrogenase Troponin T C-Reactive Protein Total Protein Albumin Prealbumin Triglycerides Cholesterol LDL Cholesterol Direct HDL Cholesterol Urine pH Urine WBC (Auto) Urine Creatinine Urine Total Protein Fluid Total Protein Vancomycin Trough Rheumatoid Factor Complement C4 Miscellaneous Test Crossmatch 10/19/16 10/19/16 10/20/16 11:46 23:59 06:00 WBC RBC Hgb Hct MCV MCH MCHC RDW Plt Count Lymph % (Auto) [place] % (Auto) Lymph # [place] # Baso # Seg Neutrophils % Seg Neuts % (Manual) Lymphocytes % (Manual) Monocytes % (Manual) Eosinophils % (Manual) Basophils % (Manual) Nucleated RBC % Seg Neutrophils # Seg Neutrophils # Man Lymphocytes # (Manual) Monocytes # (Manual) Eosinophils # (Manual) Basophils # (Manual) PT INR Fibrinogen dRVVT Confirm Interp Factor V Activity POC ABG pH POC ABG pCO2 POC ABG pO2 ABG pO2 ABG HCO3 ABG Base Excess ABG Hemoglobin Oxyhemoglobin Sodium Potassium Chloride Carbon Dioxide 17 L BUN 94 H Creatinine 2.7 H Glucose POC Glucose 116 H 117 H Lactic Acid Calcium Phosphorus Magnesium Direct Bilirubin AST ALT Alkaline Phosphatase Lactate Dehydrogenase Troponin T C-Reactive Protein Total Protein Albumin Prealbumin Triglycerides Cholesterol LDL Cholesterol Direct HDL Cholesterol Urine pH Urine WBC (Auto) Urine Creatinine Urine Total Protein Fluid Total Protein Vancomycin Trough Rheumatoid Factor Complement C4 Miscellaneous Test Crossmatch 10/20/16 10/20/16 10/20/16 06:00 11:49 16:00 WBC 19.7 H RBC 2.51 L Hgb 7.7 L Hct 23.5 L MCV MCH MCHC RDW 17.5 H Plt Count Lymph % (Auto) [place] % (Auto) Lymph # [place] # Baso # Seg Neutrophils % Seg Neuts % (Manual) Lymphocytes % (Manual) Monocytes % (Manual) Eosinophils % (Manual) Basophils % (Manual) Nucleated RBC % Seg Neutrophils # Seg Neutrophils # Man Lymphocytes # (Manual) Monocytes # (Manual) Eosinophils # (Manual) Basophils # (Manual) PT INR Fibrinogen dRVVT Confirm Interp Factor V Activity POC ABG pH POC ABG pCO2 POC ABG pO2 ABG pO2 ABG HCO3 ABG Base Excess ABG Hemoglobin Oxyhemoglobin Sodium Potassium Chloride Carbon Dioxide BUN Creatinine Glucose POC Glucose 117 H Lactic Acid Calcium Phosphorus Magnesium Direct Bilirubin AST ALT Alkaline Phosphatase Lactate Dehydrogenase Troponin T C-Reactive Protein Total Protein Albumin Prealbumin Triglycerides Cholesterol LDL Cholesterol Direct HDL Cholesterol Urine pH Urine WBC (Auto) Urine Creatinine Urine Total Protein Fluid Total Protein Vancomycin Trough Rheumatoid Factor Complement C4 Miscellaneous Test Flexitest 1 H Crossmatch 10/20/16 10/20/16 10/21/16 18:36 23:39 04:00 WBC RBC Hgb Hct MCV MCH MCHC RDW Plt Count Lymph % (Auto) [place] % (Auto) Lymph # [place] # Baso # Seg Neutrophils % Seg Neuts % (Manual) Lymphocytes % (Manual) Monocytes % (Manual) Eosinophils % (Manual) Basophils % (Manual) Nucleated RBC % Seg Neutrophils # Seg Neutrophils # Man Lymphocytes # (Manual) Monocytes # (Manual) Eosinophils # (Manual) Basophils # (Manual) PT INR Fibrinogen dRVVT Confirm Interp Factor V Activity POC ABG pH POC ABG pCO2 POC ABG pO2 ABG pO2 ABG HCO3 ABG Base Excess ABG Hemoglobin Oxyhemoglobin Sodium Potassium 5.4 H D Chloride Carbon Dioxide 15 L BUN 110 H Creatinine 3.0 H Glucose POC Glucose 127 H 114 H Lactic Acid Calcium Phosphorus Magnesium Direct Bilirubin AST ALT Alkaline Phosphatase Lactate Dehydrogenase Troponin T C-Reactive Protein Total Protein Albumin Prealbumin Triglycerides Cholesterol LDL Cholesterol Direct HDL Cholesterol Urine pH Urine WBC (Auto) Urine Creatinine Urine Total Protein Fluid Total Protein Vancomycin Trough Rheumatoid Factor Complement C4 Miscellaneous Test Crossmatch 10/21/16 10/21/1610/22/17 05:54 23:46 05:18 WBC RBC Hgb Hct MCV MCH MCHC RDW Plt Count Lymph % (Auto) [place] % (Auto) Lymph # [place] # Baso # Seg Neutrophils % Seg Neuts % (Manual) Lymphocytes % (Manual) Monocytes % (Manual) Eosinophils % (Manual) Basophils % (Manual) Nucleated RBC % Seg Neutrophils # Seg Neutrophils # Man Lymphocytes # (Manual) Monocytes # (Manual) Eosinophils # (Manual) Basophils # (Manual) PT INR Fibrinogen dRVVT Confirm Interp Factor V Activity POC ABG pH POC ABG pCO2 POC ABG pO2 ABG pO2 ABG HCO3 ABG Base Excess ABG Hemoglobin Oxyhemoglobin Sodium Potassium Chloride Carbon Dioxide BUN Creatinine Glucose POC Glucose 119 H 108 H 109 H Lactic Acid Calcium Phosphorus Magnesium Direct Bilirubin AST ALT Alkaline Phosphatase Lactate Dehydrogenase Troponin T C-Reactive Protein Total Protein Albumin Prealbumin Triglycerides Cholesterol LDL Cholesterol Direct HDL Cholesterol Urine pH Urine WBC (Auto) Urine Creatinine Urine Total Protein Fluid Total Protein Vancomycin Trough Rheumatoid Factor Complement C4 Miscellaneous Test Crossmatch 10/22/16 10/22/16 10/22/16 06:40 06:40 06:40 WBC 14.0 H RBC 2.03 L Hgb 7.0 L Hct 20.5 L MCV 98 H MCH 34 H MCHC 35 H RDW 17.8 H Plt Count Lymph % (Auto) [place] % (Auto) 9.9 H Lymph # [place] # 1.4 H Baso # 0.2 H Seg Neutrophils % 72.0 H Seg Neuts % (Manual) Lymphocytes % (Manual) Monocytes % (Manual) Eosinophils % (Manual) Basophils % (Manual) Nucleated RBC % Seg Neutrophils # 10.0 H Seg Neutrophils # Man Lymphocytes # (Manual) Monocytes # (Manual) Eosinophils # (Manual) Basophils # (Manual) PT INR Fibrinogen dRVVT Confirm Interp Factor V Activity POC ABG pH POC ABG pCO2 POC ABG pO2 ABG pO2 ABG HCO3 ABG Base Excess ABG Hemoglobin Oxyhemoglobin Sodium 130 L D Potassium Chloride 92.4 L Carbon Dioxide 20 L BUN 50 H Creatinine 1.6 H Glucose 589 H* POC Glucose Lactic Acid Calcium 7.8 L D Phosphorus Magnesium 1.60 L Direct Bilirubin AST ALT Alkaline Phosphatase Lactate Dehydrogenase Troponin T C-Reactive Protein Total Protein Albumin Prealbumin Triglycerides Cholesterol LDL Cholesterol Direct HDL Cholesterol Urine pH Urine WBC (Auto) Urine Creatinine Urine Total Protein Fluid Total Protein Vancomycin Trough Rheumatoid Factor Complement C4 Miscellaneous Test Crossmatch 10/22/16 10/22/16 10/22/16 11:39 16:44 23:36 WBC RBC Hgb Hct MCV MCH MCHC RDW Plt Count Lymph % (Auto) [place] % (Auto) Lymph # [place] # Baso # Seg Neutrophils % Seg Neuts % (Manual) Lymphocytes % (Manual) Monocytes % (Manual) Eosinophils % (Manual) Basophils % (Manual) Nucleated RBC % Seg Neutrophils # Seg Neutrophils # Man Lymphocytes # (Manual) Monocytes # (Manual) Eosinophils # (Manual) Basophils # (Manual) PT INR Fibrinogen dRVVT Confirm Interp Factor V Activity POC ABG pH POC ABG pCO2 POC ABG pO2 ABG pO2 ABG HCO3 ABG Base Excess ABG Hemoglobin Oxyhemoglobin Sodium Potassium Chloride Carbon Dioxide BUN Creatinine Glucose POC Glucose 142 H 163 H 123 H Lactic Acid Calcium Phosphorus Magnesium Direct Bilirubin AST ALT Alkaline Phosphatase Lactate Dehydrogenase Troponin T C-Reactive Protein Total Protein Albumin Prealbumin Triglycerides Cholesterol LDL Cholesterol Direct HDL Cholesterol Urine pH Urine WBC (Auto) Urine Creatinine Urine Total Protein Fluid Total Protein Vancomycin Trough Rheumatoid Factor Complement C4 Miscellaneous Test Crossmatch 10/23/16 10/23/16 10/23/16 04:58 06:00 12:12 WBC RBC Hgb Hct MCV MCH MCHC RDW Plt Count Lymph % (Auto) [place] % (Auto) Lymph # [place] # Baso # Seg Neutrophils % Seg Neuts % (Manual) Lymphocytes % (Manual) Monocytes % (Manual) Eosinophils % (Manual) Basophils % (Manual) Nucleated RBC % Seg Neutrophils # Seg Neutrophils # Man Lymphocytes # (Manual) Monocytes # (Manual) Eosinophils # (Manual) Basophils # (Manual) PT INR Fibrinogen dRVVT Confirm Interp Factor V Activity POC ABG pH POC ABG pCO2 POC ABG pO2 ABG pO2 ABG HCO3 ABG Base Excess ABG Hemoglobin Oxyhemoglobin Sodium 133 L Potassium 3.5 L Chloride 96.1 L Carbon Dioxide 18 L BUN 76 H Creatinine 2.1 H Glucose POC Glucose 133 H 138 H Lactic Acid Calcium 8.3 L Phosphorus Magnesium Direct Bilirubin AST ALT Alkaline Phosphatase Lactate Dehydrogenase Troponin T C-Reactive Protein Total Protein Albumin Prealbumin Triglycerides Cholesterol LDL Cholesterol Direct HDL Cholesterol Urine pH Urine WBC (Auto) Urine Creatinine Urine Total Protein Fluid Total Protein Vancomycin Trough Rheumatoid Factor Complement C4 Miscellaneous Test Crossmatch 10/23/16 10/23/16 10/24/16 16:53 23:37 04:00 WBC RBC Hgb Hct MCV MCH MCHC RDW Plt Count Lymph % (Auto) [place] % (Auto) Lymph # [place] # Baso # Seg Neutrophils % Seg Neuts % (Manual) Lymphocytes % (Manual) Monocytes % (Manual) Eosinophils % (Manual) Basophils % (Manual) Nucleated RBC % Seg Neutrophils # Seg Neutrophils # Man Lymphocytes # (Manual) Monocytes # (Manual) Eosinophils # (Manual) Basophils # (Manual) PT INR Fibrinogen dRVVT Confirm Interp Factor V Activity POC ABG pH POC ABG pCO2 POC ABG pO2 ABG pO2 ABG HCO3 ABG Base Excess ABG Hemoglobin Oxyhemoglobin Sodium 131 L Potassium Chloride 94.5 L Carbon Dioxide 19 L BUN 97 H Creatinine 2.6 H Glucose 110 H POC Glucose 125 H 123 H Lactic Acid Calcium 8.3 L Phosphorus Magnesium Direct Bilirubin AST ALT Alkaline Phosphatase Lactate Dehydrogenase Troponin T C-Reactive Protein Total Protein Albumin Prealbumin Triglycerides Cholesterol LDL Cholesterol Direct HDL Cholesterol Urine pH Urine WBC (Auto) Urine Creatinine Urine Total Protein Fluid Total Protein Vancomycin Trough Rheumatoid Factor Complement C4 Miscellaneous Test Crossmatch 10/24/16 10/24/16 10/24/16 07:49 11:39 17:52 WBC RBC Hgb 6.0 L Hct 19.7 L* MCV MCH MCHC RDW Plt Count Lymph % (Auto) [place] % (Auto) Lymph # [place] # Baso # Seg Neutrophils % Seg Neuts % (Manual) Lymphocytes % (Manual) Monocytes % (Manual) Eosinophils % (Manual) Basophils % (Manual) Nucleated RBC % Seg Neutrophils # Seg Neutrophils # Man Lymphocytes # (Manual) Monocytes # (Manual) Eosinophils # (Manual) Basophils # (Manual) PT INR Fibrinogen dRVVT Confirm Interp Factor V Activity POC ABG pH POC ABG pCO2 POC ABG pO2 ABG pO2 ABG HCO3 ABG Base Excess ABG Hemoglobin Oxyhemoglobin Sodium Potassium Chloride Carbon Dioxide BUN Creatinine Glucose POC Glucose 106 H 158 H Lactic Acid Calcium Phosphorus Magnesium Direct Bilirubin AST ALT Alkaline Phosphatase Lactate Dehydrogenase Troponin T C-Reactive Protein Total Protein Albumin Prealbumin Triglycerides Cholesterol LDL Cholesterol Direct HDL Cholesterol Urine pH Urine WBC (Auto) Urine Creatinine Urine Total Protein Fluid Total Protein Vancomycin Trough Rheumatoid Factor Complement C4 Miscellaneous Test Crossmatch 10/24/16 10/24/16 10/24/16 20:00 22:27 Unknown WBC RBC Hgb 9.4 L D Hct 27.5 L D MCV MCH MCHC RDW Plt Count Lymph % (Auto) [place] % (Auto) Lymph # [place] # Baso # Seg Neutrophils % Seg Neuts % (Manual) Lymphocytes % (Manual) Monocytes % (Manual) Eosinophils % (Manual) Basophils % (Manual) Nucleated RBC % Seg Neutrophils # Seg Neutrophils # Man Lymphocytes # (Manual) Monocytes # (Manual) Eosinophils # (Manual) Basophils # (Manual) PT INR Fibrinogen dRVVT Confirm Interp Factor V Activity POC ABG pH POC ABG pCO2 POC ABG pO2 ABG pO2 ABG HCO3 ABG Base Excess ABG Hemoglobin Oxyhemoglobin Sodium Potassium Chloride Carbon Dioxide BUN Creatinine Glucose POC Glucose 125 H Lactic Acid Calcium Phosphorus Magnesium Direct Bilirubin AST ALT Alkaline Phosphatase Lactate Dehydrogenase Troponin T C-Reactive Protein Total Protein Albumin Prealbumin Triglycerides Cholesterol LDL Cholesterol Direct HDL Cholesterol Urine pH Urine WBC (Auto) Urine Creatinine Urine Total Protein Fluid Total Protein Vancomycin Trough Rheumatoid Factor Complement C4 Miscellaneous Test Crossmatch See Detail 10/25/16 10/25/16 10/25/16 04:00 04:00 04:00 WBC 14.2 H RBC 2.98 L Hgb 9.0 L Hct 26.2 L MCV MCH MCHC RDW 16.6 H Plt Count Lymph % (Auto) [place] % (Auto) 10.7 H Lymph # [place] # 1.5 H Baso # Seg Neutrophils % 73.6 H Seg Neuts % (Manual) Lymphocytes % (Manual) Monocytes % (Manual) Eosinophils % (Manual) Basophils % (Manual) Nucleated RBC % Seg Neutrophils # 10.5 H Seg Neutrophils # Man Lymphocytes # (Manual) Monocytes # (Manual) Eosinophils # (Manual) Basophils # (Manual) PT INR Fibrinogen dRVVT Confirm Interp Factor V Activity POC ABG pH POC ABG pCO2 POC ABG pO2 ABG pO2 ABG HCO3 ABG Base Excess ABG Hemoglobin Oxyhemoglobin Sodium 132 L Potassium Chloride 94.7 L Carbon Dioxide BUN 51 H Creatinine 1.6 H Glucose 130 H POC Glucose Lactic Acid Calcium 8.3 L Phosphorus 1.60 L D Magnesium Direct Bilirubin AST ALT Alkaline Phosphatase Lactate Dehydrogenase Troponin T C-Reactive Protein Total Protein Albumin Prealbumin Triglycerides Cholesterol LDL Cholesterol Direct HDL Cholesterol Urine pH Urine WBC (Auto) Urine Creatinine Urine Total Protein Fluid Total Protein Vancomycin Trough Rheumatoid Factor Complement C4 Miscellaneous Test Crossmatch 10/25/16 10/25/16 10/25/16 04:32 11:48 17:22 WBC RBC Hgb Hct MCV MCH MCHC RDW Plt Count Lymph % (Auto) [place] % (Auto) Lymph # [place] # Baso # Seg Neutrophils % Seg Neuts % (Manual) Lymphocytes % (Manual) Monocytes % (Manual) Eosinophils % (Manual) Basophils % (Manual) Nucleated RBC % Seg Neutrophils # Seg Neutrophils # Man Lymphocytes # (Manual) Monocytes # (Manual) Eosinophils # (Manual) Basophils # (Manual) PT INR Fibrinogen dRVVT Confirm Interp Factor V Activity POC ABG pH POC ABG pCO2 POC ABG pO2 ABG pO2 ABG HCO3 ABG Base Excess ABG Hemoglobin Oxyhemoglobin Sodium Potassium Chloride Carbon Dioxide BUN Creatinine Glucose POC Glucose 124 H 171 H 120 H Lactic Acid Calcium Phosphorus Magnesium Direct Bilirubin AST ALT Alkaline Phosphatase Lactate Dehydrogenase Troponin T C-Reactive Protein Total Protein Albumin Prealbumin Triglycerides Cholesterol LDL Cholesterol Direct HDL Cholesterol Urine pH Urine WBC (Auto) Urine Creatinine Urine Total Protein Fluid Total Protein Vancomycin Trough Rheumatoid Factor Complement C4 Miscellaneous Test Crossmatch 10/26/16 10/26/16 10/26/16 04:54 07:06 07:06 WBC 16.9 H RBC 3.06 L Hgb 9.1 L Hct 26.9 L MCV MCH MCHC RDW 16.9 H Plt Count Lymph % (Auto) [place] % (Auto) Lymph # [place] # Baso # Seg Neutrophils % Seg Neuts % (Manual) 71.0 H Lymphocytes % (Manual) 5.0 L Monocytes % (Manual) 12.0 H Eosinophils % (Manual) Basophils % (Manual) Nucleated RBC % Seg Neutrophils # Seg Neutrophils # Man 12.0 H Lymphocytes # (Manual) 0.8 L Monocytes # (Manual) 2.0 H Eosinophils # (Manual) Basophils # (Manual) PT INR Fibrinogen dRVVT Confirm Interp Factor V Activity POC ABG pH POC ABG pCO2 POC ABG pO2 ABG pO2 ABG HCO3 ABG Base Excess ABG Hemoglobin Oxyhemoglobin Sodium 135 L Potassium Chloride 97.1 L Carbon Dioxide BUN 73 H Creatinine 2.2 H Glucose 117 H POC Glucose 123 H Lactic Acid Calcium Phosphorus 1.70 L Magnesium Direct Bilirubin AST ALT Alkaline Phosphatase Lactate Dehydrogenase Troponin T C-Reactive Protein Total Protein Albumin Prealbumin Triglycerides Cholesterol LDL Cholesterol Direct HDL Cholesterol Urine pH Urine WBC (Auto) Urine Creatinine Urine Total Protein Fluid Total Protein Vancomycin Trough Rheumatoid Factor Complement C4 Miscellaneous Test Crossmatch 10/26/16 10/26/16 10/26/16 12:12 17:29 23:42 WBC RBC Hgb Hct MCV MCH MCHC RDW Plt Count Lymph % (Auto) [place] % (Auto) Lymph # [place] # Baso # Seg Neutrophils % Seg Neuts % (Manual) Lymphocytes % (Manual) Monocytes % (Manual) Eosinophils % (Manual) Basophils % (Manual) Nucleated RBC % Seg Neutrophils # Seg Neutrophils # Man Lymphocytes # (Manual) Monocytes # (Manual) Eosinophils # (Manual) Basophils # (Manual) PT INR Fibrinogen dRVVT Confirm Interp Factor V Activity POC ABG pH POC ABG pCO2 POC ABG pO2 ABG pO2 ABG HCO3 ABG Base Excess ABG Hemoglobin Oxyhemoglobin Sodium Potassium Chloride Carbon Dioxide BUN Creatinine Glucose POC Glucose 126 H 161 H 118 H Lactic Acid Calcium Phosphorus Magnesium Direct Bilirubin AST ALT Alkaline Phosphatase Lactate Dehydrogenase Troponin T C-Reactive Protein Total Protein Albumin Prealbumin Triglycerides Cholesterol LDL Cholesterol Direct HDL Cholesterol Urine pH Urine WBC (Auto) Urine Creatinine Urine Total Protein Fluid Total Protein Vancomycin Trough Rheumatoid Factor Complement C4 Miscellaneous Test Crossmatch 10/27/16 10/27/16 10/27/16 05:03 06:30 06:30 WBC 13.9 H RBC 3.09 L Hgb 9.2 L Hct 27.5 L MCV MCH MCHC RDW 17.0 H Plt Count Lymph % (Auto) [place] % (Auto) Lymph # [place] # Baso # Seg Neutrophils % Seg Neuts % (Manual) 78.0 H Lymphocytes % (Manual) Monocytes % (Manual) Eosinophils % (Manual) Basophils % (Manual) Nucleated RBC % 2.0 H Seg Neutrophils # Seg Neutrophils # Man 10.8 H Lymphocytes # (Manual) Monocytes # (Manual) 1.0 H Eosinophils # (Manual) Basophils # (Manual) PT INR Fibrinogen dRVVT Confirm Interp Factor V Activity POC ABG pH POC ABG pCO2 POC ABG pO2 ABG pO2 ABG HCO3 ABG Base Excess ABG Hemoglobin Oxyhemoglobin Sodium Potassium Chloride Carbon Dioxide BUN 40 H Creatinine 1.5 H Glucose 135 H POC Glucose 107 H Lactic Acid Calcium 8.3 L Phosphorus 1.30 L D Magnesium Direct Bilirubin AST ALT Alkaline Phosphatase Lactate Dehydrogenase Troponin T C-Reactive Protein Total Protein Albumin Prealbumin Triglycerides Cholesterol LDL Cholesterol Direct HDL Cholesterol Urine pH Urine WBC (Auto) Urine Creatinine Urine Total Protein Fluid Total Protein Vancomycin Trough Rheumatoid Factor Complement C4 Miscellaneous Test Crossmatch 10/27/16 10/27/16 10/27/16 13:27 18:07 23:40 WBC RBC Hgb Hct MCV MCH MCHC RDW Plt Count Lymph % (Auto) [place] % (Auto) Lymph # [place] # Baso # Seg Neutrophils % Seg Neuts % (Manual) Lymphocytes % (Manual) Monocytes % (Manual) Eosinophils % (Manual) Basophils % (Manual) Nucleated RBC % Seg Neutrophils # Seg Neutrophils # Man Lymphocytes # (Manual) Monocytes # (Manual) Eosinophils # (Manual) Basophils # (Manual) PT INR Fibrinogen dRVVT Confirm Interp Factor V Activity POC ABG pH POC ABG pCO2 POC ABG pO2 ABG pO2 ABG HCO3 ABG Base Excess ABG Hemoglobin Oxyhemoglobin Sodium Potassium Chloride Carbon Dioxide BUN Creatinine Glucose POC Glucose 117 H 121 H 118 H Lactic Acid Calcium Phosphorus Magnesium Direct Bilirubin AST ALT Alkaline Phosphatase Lactate Dehydrogenase Troponin T C-Reactive Protein Total Protein Albumin Prealbumin Triglycerides Cholesterol LDL Cholesterol Direct HDL Cholesterol Urine pH Urine WBC (Auto) Urine Creatinine Urine Total Protein Fluid Total Protein Vancomycin Trough Rheumatoid Factor Complement C4 Miscellaneous Test Crossmatch 10/28/16 10/28/16 10/28/16 05:48 06:45 06:45 WBC 14.7 H RBC 3.05 L Hgb 9.0 L Hct 26.9 L MCV MCH MCHC RDW 16.8 H Plt Count Lymph % (Auto) 8.2 L [place] % (Auto) 8.4 H Lymph # [place] # 1.2 H Baso # Seg Neutrophils % 81.9 H Seg Neuts % (Manual) Lymphocytes % (Manual) Monocytes % (Manual) Eosinophils % (Manual) Basophils % (Manual) Nucleated RBC % Seg Neutrophils # 12.1 H Seg Neutrophils # Man Lymphocytes # (Manual) Monocytes # (Manual) Eosinophils # (Manual) Basophils # (Manual) PT INR Fibrinogen dRVVT Confirm Interp Factor V Activity POC ABG pH POC ABG pCO2 POC ABG pO2 ABG pO2 ABG HCO3 ABG Base Excess ABG Hemoglobin Oxyhemoglobin Sodium Potassium Chloride Carbon Dioxide BUN 60 H Creatinine 1.9 H Glucose 120 H POC Glucose 114 H Lactic Acid Calcium Phosphorus Magnesium Direct Bilirubin AST ALT Alkaline Phosphatase Lactate Dehydrogenase Troponin T C-Reactive Protein Total Protein Albumin Prealbumin Triglycerides Cholesterol LDL Cholesterol Direct HDL Cholesterol Urine pH Urine WBC (Auto) Urine Creatinine Urine Total Protein Fluid Total Protein Vancomycin Trough Rheumatoid Factor Complement C4 Miscellaneous Test Crossmatch 10/28/16 10/28/16 10/29/16 17:08 23:50 05:10 WBC RBC Hgb Hct MCV MCH MCHC RDW Plt Count Lymph % (Auto) [place] % (Auto) Lymph # [place] # Baso # Seg Neutrophils % Seg Neuts % (Manual) Lymphocytes % (Manual) Monocytes % (Manual) Eosinophils % (Manual) Basophils % (Manual) Nucleated RBC % Seg Neutrophils # Seg Neutrophils # Man Lymphocytes # (Manual) Monocytes # (Manual) Eosinophils # (Manual) Basophils # (Manual) PT INR Fibrinogen dRVVT Confirm Interp Factor V Activity POC ABG pH POC ABG pCO2 POC ABG pO2 ABG pO2 ABG HCO3 ABG Base Excess ABG Hemoglobin Oxyhemoglobin Sodium Potassium Chloride Carbon Dioxide BUN Creatinine Glucose POC Glucose 109 H 110 H 124 H Lactic Acid Calcium Phosphorus Magnesium Direct Bilirubin AST ALT Alkaline Phosphatase Lactate Dehydrogenase Troponin T C-Reactive Protein Total Protein Albumin Prealbumin Triglycerides Cholesterol LDL Cholesterol Direct HDL Cholesterol Urine pH Urine WBC (Auto) Urine Creatinine Urine Total Protein Fluid Total Protein Vancomycin Trough Rheumatoid Factor Complement C4 Miscellaneous Test Crossmatch 10/29/16 10/29/16 10/29/16 07:45 07:45 12:19 WBC 14.7 H RBC 3.15 L Hgb 9.3 L Hct 28.9 L MCV MCH MCHC RDW 17.0 H Plt Count Lymph % (Auto) 11.9 L [place] % (Auto) 8.6 H Lymph # [place] # 1.3 H Baso # Seg Neutrophils % 78.1 H Seg Neuts % (Manual) Lymphocytes % (Manual) Monocytes % (Manual) Eosinophils % (Manual) Basophils % (Manual) Nucleated RBC % Seg Neutrophils # 11.4 H Seg Neutrophils # Man Lymphocytes # (Manual) Monocytes # (Manual) Eosinophils # (Manual) Basophils # (Manual) PT INR Fibrinogen dRVVT Confirm Interp Factor V Activity POC ABG pH POC ABG pCO2 POC ABG pO2 ABG pO2 ABG HCO3 ABG Base Excess ABG Hemoglobin Oxyhemoglobin Sodium Potassium 5.1 H Chloride Carbon Dioxide 19 L BUN 78 H Creatinine 2.2 H Glucose 116 H POC Glucose 118 H Lactic Acid Calcium Phosphorus Magnesium Direct Bilirubin AST ALT Alkaline Phosphatase Lactate Dehydrogenase Troponin T C-Reactive Protein Total Protein Albumin Prealbumin Triglycerides Cholesterol LDL Cholesterol Direct HDL Cholesterol Urine pH Urine WBC (Auto) Urine Creatinine Urine Total Protein Fluid Total Protein Vancomycin Trough Rheumatoid Factor Complement C4 Miscellaneous Test Crossmatch 10/29/16 10/30/16 10/30/16 17:49 01:52 03:28 WBC RBC Hgb Hct MCV MCH MCHC RDW Plt Count Lymph % (Auto) [place] % (Auto) Lymph # [place] # Baso # Seg Neutrophils % Seg Neuts % (Manual) Lymphocytes % (Manual) Monocytes % (Manual) Eosinophils % (Manual) Basophils % (Manual) Nucleated RBC % Seg Neutrophils # Seg Neutrophils # Man Lymphocytes # (Manual) Monocytes # (Manual) Eosinophils # (Manual) Basophils # (Manual) PT INR Fibrinogen dRVVT Confirm Interp Factor V Activity POC ABG pH POC ABG pCO2 POC ABG pO2 ABG pO2 ABG HCO3 ABG Base Excess ABG Hemoglobin Oxyhemoglobin Sodium Potassium 5.4 H Chloride 97.5 L Carbon Dioxide 19 L BUN 90 H Creatinine 2.5 H Glucose POC Glucose 120 H 129 H Lactic Acid Calcium Phosphorus 5.20 H Magnesium Direct Bilirubin AST ALT Alkaline Phosphatase Lactate Dehydrogenase Troponin T C-Reactive Protein Total Protein Albumin Prealbumin Triglycerides Cholesterol LDL Cholesterol Direct HDL Cholesterol Urine pH Urine WBC (Auto) Urine Creatinine Urine Total Protein Fluid Total Protein Vancomycin Trough Rheumatoid Factor Complement C4 Miscellaneous Test Crossmatch 10/30/16 10/30/16 10/30/16 03:28 08:19 08:19 WBC 11.6 H 15.9 H RBC 2.75 L 2.82 L Hgb 7.9 L 8.3 L Hct 24.2 L 25.2 L MCV MCH MCHC RDW 16.7 H 17.2 H Plt Count Lymph % (Auto) [place] % (Auto) 9.8 H Lymph # [place] # 1.1 H Baso # Seg Neutrophils % 74.2 H Seg Neuts % (Manual) Lymphocytes % (Manual) Monocytes % (Manual) Eosinophils % (Manual) Basophils % (Manual) Nucleated RBC % Seg Neutrophils # 8.6 H Seg Neutrophils # Man Lymphocytes # (Manual) Monocytes # (Manual) Eosinophils # (Manual) Basophils # (Manual) PT INR Fibrinogen dRVVT Confirm Interp Factor V Activity POC ABG pH POC ABG pCO2 POC ABG pO2 ABG pO2 ABG HCO3 ABG Base Excess ABG Hemoglobin Oxyhemoglobin Sodium Potassium 5.3 H Chloride 97.4 L Carbon Dioxide 19 L BUN 93 H Creatinine 2.6 H Glucose POC Glucose Lactic Acid Calcium Phosphorus Magnesium Direct Bilirubin AST ALT Alkaline Phosphatase Lactate Dehydrogenase Troponin T C-Reactive Protein Total Protein Albumin Prealbumin Triglycerides Cholesterol LDL Cholesterol Direct HDL Cholesterol Urine pH Urine WBC (Auto) Urine Creatinine Urine Total Protein Fluid Total Protein Vancomycin Trough Rheumatoid Factor Complement C4 Miscellaneous Test Crossmatch 10/30/16 10/30/16 10/31/16 17:11 23:56 00:40 WBC RBC Hgb Hct MCV MCH MCHC RDW Plt Count Lymph % (Auto) [place] % (Auto) Lymph # [place] # Baso # Seg Neutrophils % Seg Neuts % (Manual) Lymphocytes % (Manual) Monocytes % (Manual) Eosinophils % (Manual) Basophils % (Manual) Nucleated RBC % Seg Neutrophils # Seg Neutrophils # Man Lymphocytes # (Manual) Monocytes # (Manual) Eosinophils # (Manual) Basophils # (Manual) PT INR Fibrinogen dRVVT Confirm Interp Factor V Activity POC ABG pH POC ABG pCO2 POC ABG pO2 ABG pO2 ABG HCO3 ABG Base Excess ABG Hemoglobin Oxyhemoglobin Sodium Potassium Chloride Carbon Dioxide BUN Creatinine Glucose POC Glucose 106 H 117 H 120 H Lactic Acid Calcium Phosphorus Magnesium Direct Bilirubin AST ALT Alkaline Phosphatase Lactate Dehydrogenase Troponin T C-Reactive Protein Total Protein Albumin Prealbumin Triglycerides Cholesterol LDL Cholesterol Direct HDL Cholesterol Urine pH Urine WBC (Auto) Urine Creatinine Urine Total Protein Fluid Total Protein Vancomycin Trough Rheumatoid Factor Complement C4 Miscellaneous Test Crossmatch 10/31/16 10/31/16 10/31/16 05:43 07:15 07:15 WBC 12.1 H RBC 2.63 L Hgb 7.7 L Hct 23.3 L MCV MCH MCHC RDW 16.7 H Plt Count Lymph % (Auto) 11.7 L [place] % (Auto) 7.7 H Lymph # [place] # 0.9 H Baso # Seg Neutrophils % 78.0 H Seg Neuts % (Manual) Lymphocytes % (Manual) Monocytes % (Manual) Eosinophils % (Manual) Basophils % (Manual) Nucleated RBC % Seg Neutrophils # 9.4 H Seg Neutrophils # Man Lymphocytes # (Manual) Monocytes # (Manual) Eosinophils # (Manual) Basophils # (Manual) PT INR Fibrinogen dRVVT Confirm Interp Factor V Activity POC ABG pH POC ABG pCO2 POC ABG pO2 ABG pO2 ABG HCO3 ABG Base Excess ABG Hemoglobin Oxyhemoglobin Sodium Potassium Chloride 96.4 L Carbon Dioxide 21 L BUN 99 H Creatinine 2.6 H Glucose 144 H POC Glucose 125 H Lactic Acid Calcium Phosphorus 4.80 H Magnesium Direct Bilirubin AST ALT Alkaline Phosphatase Lactate Dehydrogenase Troponin T C-Reactive Protein Total Protein Albumin Prealbumin Triglycerides Cholesterol LDL Cholesterol Direct HDL Cholesterol Urine pH Urine WBC (Auto) Urine Creatinine Urine Total Protein Fluid Total Protein Vancomycin Trough Rheumatoid Factor Complement C4 Miscellaneous Test Crossmatch 10/31/16 10/31/16 11/01/16 11:46 18:34 00:20 WBC RBC Hgb Hct MCV MCH MCHC RDW Plt Count Lymph % (Auto) [place] % (Auto) Lymph # [place] # Baso # Seg Neutrophils % Seg Neuts % (Manual) Lymphocytes % (Manual) Monocytes % (Manual) Eosinophils % (Manual) Basophils % (Manual) Nucleated RBC % Seg Neutrophils # Seg Neutrophils # Man Lymphocytes # (Manual) Monocytes # (Manual) Eosinophils # (Manual) Basophils # (Manual) PT INR Fibrinogen dRVVT Confirm Interp Factor V Activity POC ABG pH POC ABG pCO2 POC ABG pO2 ABG pO2 ABG HCO3 ABG Base Excess ABG Hemoglobin Oxyhemoglobin Sodium Potassium Chloride Carbon Dioxide BUN Creatinine Glucose POC Glucose 159 H 140 H 132 H Lactic Acid Calcium Phosphorus Magnesium Direct Bilirubin AST ALT Alkaline Phosphatase Lactate Dehydrogenase Troponin T C-Reactive Protein Total Protein Albumin Prealbumin Triglycerides Cholesterol LDL Cholesterol Direct HDL Cholesterol Urine pH Urine WBC (Auto) Urine Creatinine Urine Total Protein Fluid Total Protein Vancomycin Trough Rheumatoid Factor Complement C4 Miscellaneous Test Crossmatch 11/01/16 11/01/16 11/01/16 04:55 04:55 06:11 WBC 11.2 H RBC 2.68 L Hgb 7.5 L Hct 23.7 L MCV MCH MCHC RDW 16.1 H Plt Count Lymph % (Auto) [place] % (Auto) 9.8 H Lymph # [place] # 1.1 H Baso # Seg Neutrophils % 70.8 H Seg Neuts % (Manual) Lymphocytes % (Manual) Monocytes % (Manual) Eosinophils % (Manual) Basophils % (Manual) Nucleated RBC % Seg Neutrophils # 7.9 H Seg Neutrophils # Man Lymphocytes # (Manual) Monocytes # (Manual) Eosinophils # (Manual) Basophils # (Manual) PT INR Fibrinogen dRVVT Confirm Interp Factor V Activity POC ABG pH POC ABG pCO2 POC ABG pO2 ABG pO2 ABG HCO3 ABG Base Excess ABG Hemoglobin Oxyhemoglobin Sodium Potassium 3.3 L D Chloride Carbon Dioxide BUN 61 H Creatinine 1.9 H Glucose 114 H POC Glucose 115 H Lactic Acid Calcium Phosphorus 1.80 L D Magnesium Direct Bilirubin AST ALT Alkaline Phosphatase Lactate Dehydrogenase Troponin T C-Reactive Protein Total Protein Albumin Prealbumin Triglycerides Cholesterol LDL Cholesterol Direct HDL Cholesterol Urine pH Urine WBC (Auto) Urine Creatinine Urine Total Protein Fluid Total Protein Vancomycin Trough Rheumatoid Factor Complement C4 Miscellaneous Test Crossmatch 11/01/16 11/01/16 11/01/16 12:29 18:23 23:58 WBC RBC Hgb Hct MCV MCH MCHC RDW Plt Count Lymph % (Auto) [place] % (Auto) Lymph # [place] # Baso # Seg Neutrophils % Seg Neuts % (Manual) Lymphocytes % (Manual) Monocytes % (Manual) Eosinophils % (Manual) Basophils % (Manual) Nucleated RBC % Seg Neutrophils # Seg Neutrophils # Man Lymphocytes # (Manual) Monocytes # (Manual) Eosinophils # (Manual) Basophils # (Manual) PT INR Fibrinogen dRVVT Confirm Interp Factor V Activity POC ABG pH POC ABG pCO2 POC ABG pO2 ABG pO2 ABG HCO3 ABG Base Excess ABG Hemoglobin Oxyhemoglobin Sodium Potassium Chloride Carbon Dioxide BUN Creatinine Glucose POC Glucose 142 H 143 H 128 H Lactic Acid Calcium Phosphorus Magnesium Direct Bilirubin AST ALT Alkaline Phosphatase Lactate Dehydrogenase Troponin T C-Reactive Protein Total Protein Albumin Prealbumin Triglycerides Cholesterol LDL Cholesterol Direct HDL Cholesterol Urine pH Urine WBC (Auto) Urine Creatinine Urine Total Protein Fluid Total Protein Vancomycin Trough Rheumatoid Factor Complement C4 Miscellaneous Test Crossmatch 11/02/16 11/02/16 11/02/16 04:16 05:29 11:58 WBC RBC Hgb Hct MCV MCH MCHC RDW Plt Count Lymph % (Auto) [place] % (Auto) Lymph # [place] # Baso # Seg Neutrophils % Seg Neuts % (Manual) Lymphocytes % (Manual) Monocytes % (Manual) Eosinophils % (Manual) Basophils % (Manual) Nucleated RBC % Seg Neutrophils # Seg Neutrophils # Man Lymphocytes # (Manual) Monocytes # (Manual) Eosinophils # (Manual) Basophils # (Manual) PT INR Fibrinogen dRVVT Confirm Interp Factor V Activity POC ABG pH POC ABG pCO2 POC ABG pO2 ABG pO2 ABG HCO3 ABG Base Excess ABG Hemoglobin Oxyhemoglobin Sodium Potassium 3.1 L Chloride Carbon Dioxide BUN 73 H Creatinine 2.3 H Glucose 112 H POC Glucose 135 H 149 H Lactic Acid Calcium Phosphorus Magnesium Direct Bilirubin AST ALT Alkaline Phosphatase Lactate Dehydrogenase Troponin T C-Reactive Protein Total Protein Albumin Prealbumin Triglycerides Cholesterol LDL Cholesterol Direct HDL Cholesterol Urine pH Urine WBC (Auto) Urine Creatinine Urine Total Protein Fluid Total Protein Vancomycin Trough Rheumatoid Factor Complement C4 Miscellaneous Test Crossmatch 11/02/16 11/02/16 11/03/16 17:42 22:54 06:00 WBC RBC Hgb Hct MCV MCH MCHC RDW Plt Count Lymph % (Auto) [place] % (Auto) Lymph # [place] # Baso # Seg Neutrophils % Seg Neuts % (Manual) Lymphocytes % (Manual) Monocytes % (Manual) Eosinophils % (Manual) Basophils % (Manual) Nucleated RBC % Seg Neutrophils # Seg Neutrophils # Man Lymphocytes # (Manual) Monocytes # (Manual) Eosinophils # (Manual) Basophils # (Manual) PT INR Fibrinogen dRVVT Confirm Interp Factor V Activity POC ABG pH POC ABG pCO2 POC ABG pO2 ABG pO2 ABG HCO3 ABG Base Excess ABG Hemoglobin Oxyhemoglobin Sodium Potassium Chloride 96.7 L Carbon Dioxide BUN 41 H Creatinine 1.5 H Glucose 145 H POC Glucose 182 H 115 H Lactic Acid Calcium Phosphorus 1.60 L D Magnesium 1.50 L Direct Bilirubin AST ALT Alkaline Phosphatase Lactate Dehydrogenase Troponin T C-Reactive Protein Total Protein Albumin Prealbumin Triglycerides Cholesterol LDL Cholesterol Direct HDL Cholesterol Urine pH Urine WBC (Auto) Urine Creatinine Urine Total Protein Fluid Total Protein Vancomycin Trough Rheumatoid Factor Complement C4 Miscellaneous Test Crossmatch 11/03/16 11/03/16 11/03/16 11:53 17:45 23:37 WBC RBC Hgb Hct MCV MCH MCHC RDW Plt Count Lymph % (Auto) [place] % (Auto) Lymph # [place] # Baso # Seg Neutrophils % Seg Neuts % (Manual) Lymphocytes % (Manual) Monocytes % (Manual) Eosinophils % (Manual) Basophils % (Manual) Nucleated RBC % Seg Neutrophils # Seg Neutrophils # Man Lymphocytes # (Manual) Monocytes # (Manual) Eosinophils # (Manual) Basophils # (Manual) PT INR Fibrinogen dRVVT Confirm Interp Factor V Activity POC ABG pH POC ABG pCO2 POC ABG pO2 ABG pO2 ABG HCO3 ABG Base Excess ABG Hemoglobin Oxyhemoglobin Sodium Potassium Chloride Carbon Dioxide BUN Creatinine Glucose POC Glucose 131 H 134 H 113 H Lactic Acid Calcium Phosphorus Magnesium Direct Bilirubin AST ALT Alkaline Phosphatase Lactate Dehydrogenase Troponin T C-Reactive Protein Total Protein Albumin Prealbumin Triglycerides Cholesterol LDL Cholesterol Direct HDL Cholesterol Urine pH Urine WBC (Auto) Urine Creatinine Urine Total Protein Fluid Total Protein Vancomycin Trough Rheumatoid Factor Complement C4 Miscellaneous Test Crossmatch 11/04/16 11/04/16 11/04/16 05:41 06:00 12:10 WBC RBC Hgb Hct MCV MCH MCHC RDW Plt Count Lymph % (Auto) [place] % (Auto) Lymph # [place] # Baso # Seg Neutrophils % Seg Neuts % (Manual) Lymphocytes % (Manual) Monocytes % (Manual) Eosinophils % (Manual) Basophils % (Manual) Nucleated RBC % Seg Neutrophils # Seg Neutrophils # Man Lymphocytes # (Manual) Monocytes # (Manual) Eosinophils # (Manual) Basophils # (Manual) PT INR Fibrinogen dRVVT Confirm Interp Factor V Activity POC ABG pH POC ABG pCO2 POC ABG pO2 ABG pO2 ABG HCO3 ABG Base Excess ABG Hemoglobin Oxyhemoglobin Sodium Potassium Chloride 96.7 L Carbon Dioxide BUN 52 H Creatinine 1.9 H Glucose 126 H POC Glucose 137 H 191 H Lactic Acid Calcium Phosphorus Magnesium Direct Bilirubin AST ALT Alkaline Phosphatase Lactate Dehydrogenase Troponin T C-Reactive Protein Total Protein Albumin Prealbumin Triglycerides Cholesterol LDL Cholesterol Direct HDL Cholesterol Urine pH Urine WBC (Auto) Urine Creatinine Urine Total Protein Fluid Total Protein Vancomycin Trough Rheumatoid Factor Complement C4 Miscellaneous Test Crossmatch 11/04/16 11/05/16 11/05/16 22:57 03:10 05:10 WBC RBC Hgb Hct MCV MCH MCHC RDW Plt Count Lymph % (Auto) [place] % (Auto) Lymph # [place] # Baso # Seg Neutrophils % Seg Neuts % (Manual) Lymphocytes % (Manual) Monocytes % (Manual) Eosinophils % (Manual) Basophils % (Manual) Nucleated RBC % Seg Neutrophils # Seg Neutrophils # Man Lymphocytes # (Manual) Monocytes # (Manual) Eosinophils # (Manual) Basophils # (Manual) PT INR Fibrinogen dRVVT Confirm Interp Factor V Activity POC ABG pH POC ABG pCO2 POC ABG pO2 ABG pO2 ABG HCO3 ABG Base Excess ABG Hemoglobin Oxyhemoglobin Sodium 136 L Potassium Chloride 97.2 L Carbon Dioxide BUN 32 H Creatinine 1.3 H Glucose 123 H POC Glucose 125 H 108 H Lactic Acid Calcium 7.8 L Phosphorus Magnesium Direct Bilirubin AST ALT Alkaline Phosphatase Lactate Dehydrogenase Troponin T C-Reactive Protein Total Protein Albumin Prealbumin Triglycerides Cholesterol LDL Cholesterol Direct HDL Cholesterol Urine pH Urine WBC (Auto) Urine Creatinine Urine Total Protein Fluid Total Protein Vancomycin Trough Rheumatoid Factor Complement C4 Miscellaneous Test Crossmatch 11/05/16 11/05/16 11/05/16 12:23 13:09 13:25 WBC RBC Hgb Hct MCV MCH MCHC RDW Plt Count Lymph % (Auto) [place] % (Auto) Lymph # [place] # Baso # Seg Neutrophils % Seg Neuts % (Manual) Lymphocytes % (Manual) Monocytes % (Manual) Eosinophils % (Manual) Basophils % (Manual) Nucleated RBC % Seg Neutrophils # Seg Neutrophils # Man Lymphocytes # (Manual) Monocytes # (Manual) Eosinophils # (Manual) Basophils # (Manual) PT INR Fibrinogen dRVVT Confirm Interp Factor V Activity POC ABG pH POC ABG pCO2 POC ABG pO2 ABG pO2 ABG HCO3 ABG Base Excess ABG Hemoglobin Oxyhemoglobin Sodium Potassium Chloride Carbon Dioxide BUN Creatinine Glucose POC Glucose 124 H Lactic Acid Calcium Phosphorus Magnesium Direct Bilirubin AST ALT Alkaline Phosphatase Lactate Dehydrogenase Troponin T C-Reactive Protein 11.40 H Total Protein Albumin Prealbumin Triglycerides Cholesterol LDL Cholesterol Direct HDL Cholesterol Urine pH 9.0 H Urine WBC (Auto) Urine Creatinine Urine Total Protein Fluid Total Protein Vancomycin Trough Rheumatoid Factor Complement C4 Miscellaneous Test Crossmatch 11/05/16 11/05/16 11/05/16 13:25 17:54 23:42 WBC RBC Hgb Hct MCV MCH MCHC RDW Plt Count Lymph % (Auto) [place] % (Auto) Lymph # [place] # Baso # Seg Neutrophils % Seg Neuts % (Manual) Lymphocytes % (Manual) Monocytes % (Manual) Eosinophils % (Manual) Basophils % (Manual) Nucleated RBC % Seg Neutrophils # Seg Neutrophils # Man Lymphocytes # (Manual) Monocytes # (Manual) Eosinophils # (Manual) Basophils # (Manual) PT INR Fibrinogen dRVVT Confirm Interp Factor V Activity POC ABG pH POC ABG pCO2 POC ABG pO2 ABG pO2 ABG HCO3 ABG Base Excess ABG Hemoglobin Oxyhemoglobin Sodium Potassium Chloride Carbon Dioxide BUN Creatinine Glucose POC Glucose 114 H 134 H Lactic Acid Calcium Phosphorus Magnesium Direct Bilirubin AST ALT Alkaline Phosphatase Lactate Dehydrogenase Troponin T C-Reactive Protein Total Protein Albumin Prealbumin Triglycerides Cholesterol LDL Cholesterol Direct HDL Cholesterol Urine pH Urine WBC (Auto) Urine Creatinine Urine Total Protein Fluid Total Protein Vancomycin Trough Rheumatoid Factor Complement C4 Miscellaneous Test Flexitest 1 H Crossmatch 11/06/16 11/06/16 11/06/16 04:56 06:25 06:25 WBC RBC 2.50 L Hgb 7.3 L Hct 22.5 L MCV MCH MCHC RDW 16.9 H Plt Count Lymph % (Auto) [place] % (Auto) 10.5 H Lymph # [place] # 1.1 H Baso # Seg Neutrophils % Seg Neuts % (Manual) Lymphocytes % (Manual) Monocytes % (Manual) Eosinophils % (Manual) Basophils % (Manual) Nucleated RBC % Seg Neutrophils # Seg Neutrophils # Man Lymphocytes # (Manual) Monocytes # (Manual) Eosinophils # (Manual) Basophils # (Manual) PT INR Fibrinogen dRVVT Confirm Interp Factor V Activity POC ABG pH POC ABG pCO2 POC ABG pO2 ABG pO2 ABG HCO3 ABG Base Excess ABG Hemoglobin Oxyhemoglobin Sodium Potassium 5.1 H Chloride 95.9 L Carbon Dioxide BUN 52 H Creatinine 1.8 H Glucose 117 H POC Glucose 120 H Lactic Acid Calcium Phosphorus Magnesium Direct Bilirubin AST 103 H ALT 77 H Alkaline Phosphatase 285 H Lactate Dehydrogenase Troponin T C-Reactive Protein Total Protein 6.2 L Albumin 1.8 L Prealbumin 0.180 L Triglycerides Cholesterol LDL Cholesterol Direct HDL Cholesterol Urine pH Urine WBC (Auto) Urine Creatinine Urine Total Protein Fluid Total Protein Vancomycin Trough Rheumatoid Factor Complement C4 Miscellaneous Test Crossmatch 11/06/16 11/06/16 11/06/16 11:56 17:14 23:52 WBC RBC Hgb Hct MCV MCH MCHC RDW Plt Count Lymph % (Auto) [place] % (Auto) Lymph # [place] # Baso # Seg Neutrophils % Seg Neuts % (Manual) Lymphocytes % (Manual) Monocytes % (Manual) Eosinophils % (Manual) Basophils % (Manual) Nucleated RBC % Seg Neutrophils # Seg Neutrophils # Man Lymphocytes # (Manual) Monocytes # (Manual) Eosinophils # (Manual) Basophils # (Manual) PT INR Fibrinogen dRVVT Confirm Interp Factor V Activity POC ABG pH POC ABG pCO2 POC ABG pO2 ABG pO2 ABG HCO3 ABG Base Excess ABG Hemoglobin Oxyhemoglobin Sodium Potassium Chloride Carbon Dioxide BUN Creatinine Glucose POC Glucose 141 H 125 H 130 H Lactic Acid Calcium Phosphorus Magnesium Direct Bilirubin AST ALT Alkaline Phosphatase Lactate Dehydrogenase Troponin T C-Reactive Protein Total Protein Albumin Prealbumin Triglycerides Cholesterol LDL Cholesterol Direct HDL Cholesterol Urine pH Urine WBC (Auto) Urine Creatinine Urine Total Protein Fluid Total Protein Vancomycin Trough Rheumatoid Factor Complement C4 Miscellaneous Test Crossmatch 11/07/16 11/07/16 11/07/16 06:30 06:30 09:37 WBC RBC 2.18 L Hgb 6.3 L Hct 19.7 L* MCV MCH MCHC RDW 16.8 H Plt Count Lymph % (Auto) [place] % (Auto) 10.0 H Lymph # [place] # 1.0 H Baso # Seg Neutrophils % Seg Neuts % (Manual) Lymphocytes % (Manual) Monocytes % (Manual) Eosinophils % (Manual) Basophils % (Manual) Nucleated RBC % Seg Neutrophils # Seg Neutrophils # Man Lymphocytes # (Manual) Monocytes # (Manual) Eosinophils # (Manual) Basophils # (Manual) PT INR Fibrinogen dRVVT Confirm Interp Factor V Activity POC ABG pH POC ABG pCO2 POC ABG pO2 ABG pO2 ABG HCO3 ABG Base Excess ABG Hemoglobin Oxyhemoglobin Sodium 135 L Potassium Chloride 95.6 L Carbon Dioxide BUN 70 H Creatinine 2.0 H Glucose 126 H POC Glucose Lactic Acid Calcium Phosphorus Magnesium Direct Bilirubin AST ALT Alkaline Phosphatase Lactate Dehydrogenase Troponin T C-Reactive Protein Total Protein Albumin Prealbumin Triglycerides Cholesterol LDL Cholesterol Direct HDL Cholesterol Urine pH Urine WBC (Auto) Urine Creatinine Urine Total Protein Fluid Total Protein Vancomycin Trough Rheumatoid Factor Complement C4 Miscellaneous Test Crossmatch See Detail 11/07/16 11/07/16 11/07/16 12:52 18:51 21:26 WBC RBC Hgb Hct MCV MCH MCHC RDW Plt Count Lymph % (Auto) [place] % (Auto) Lymph # [place] # Baso # Seg Neutrophils % Seg Neuts % (Manual) Lymphocytes % (Manual) Monocytes % (Manual) Eosinophils % (Manual) Basophils % (Manual) Nucleated RBC % Seg Neutrophils # Seg Neutrophils # Man Lymphocytes # (Manual) Monocytes # (Manual) Eosinophils # (Manual) Basophils # (Manual) PT INR Fibrinogen dRVVT Confirm Interp Factor V Activity POC ABG pH 7.523 H POC ABG pCO2 34.6 L POC ABG pO2 53 L ABG pO2 ABG HCO3 ABG Base Excess ABG Hemoglobin Oxyhemoglobin Sodium Potassium Chloride Carbon Dioxide BUN Creatinine Glucose POC Glucose 142 H 155 H Lactic Acid Calcium Phosphorus Magnesium Direct Bilirubin AST ALT Alkaline Phosphatase Lactate Dehydrogenase Troponin T C-Reactive Protein Total Protein Albumin Prealbumin Triglycerides Cholesterol LDL Cholesterol Direct HDL Cholesterol Urine pH Urine WBC (Auto) Urine Creatinine Urine Total Protein Fluid Total Protein Vancomycin Trough Rheumatoid Factor Complement C4 Miscellaneous Test Crossmatch 11/07/16 11/08/16 11/08/16 21:34 13:03 23:37 WBC RBC 2.63 L Hgb 7.7 L Hct 22.7 L MCV MCH MCHC RDW 17.0 H Plt Count Lymph % (Auto) [place] % (Auto) Lymph # [place] # Baso # Seg Neutrophils % Seg Neuts % (Manual) Lymphocytes % (Manual) Monocytes % (Manual) Eosinophils % (Manual) Basophils % (Manual) Nucleated RBC % Seg Neutrophils # Seg Neutrophils # Man Lymphocytes # (Manual) Monocytes # (Manual) Eosinophils # (Manual) Basophils # (Manual) PT INR Fibrinogen dRVVT Confirm Interp Factor V Activity POC ABG pH 7.478 H POC ABG pCO2 34.0 L POC ABG pO2 50 L ABG pO2 ABG HCO3 ABG Base Excess ABG Hemoglobin Oxyhemoglobin Sodium Potassium Chloride Carbon Dioxide BUN Creatinine Glucose POC Glucose 113 H Lactic Acid Calcium Phosphorus Magnesium Direct Bilirubin AST ALT Alkaline Phosphatase Lactate Dehydrogenase Troponin T C-Reactive Protein Total Protein Albumin Prealbumin Triglycerides Cholesterol LDL Cholesterol Direct HDL Cholesterol Urine pH Urine WBC (Auto) Urine Creatinine Urine Total Protein Fluid Total Protein Vancomycin Trough Rheumatoid Factor Complement C4 Miscellaneous Test Crossmatch 11/09/16 11/09/16 11/09/16 04:35 10:15 18:21 WBC RBC 2.68 L Hgb 7.8 L Hct 23.3 L MCV MCH MCHC RDW 17.0 H Plt Count Lymph % (Auto) [place] % (Auto) 12.1 H Lymph # [place] # 1.1 H Baso # Seg Neutrophils % Seg Neuts % (Manual) Lymphocytes % (Manual) Monocytes % (Manual) Eosinophils % (Manual) Basophils % (Manual) Nucleated RBC % Seg Neutrophils # Seg Neutrophils # Man Lymphocytes # (Manual) Monocytes # (Manual) Eosinophils # (Manual) Basophils # (Manual) PT INR Fibrinogen dRVVT Confirm Interp Factor V Activity POC ABG pH POC ABG pCO2 POC ABG pO2 ABG pO2 ABG HCO3 ABG Base Excess ABG Hemoglobin Oxyhemoglobin Sodium Potassium Chloride Carbon Dioxide BUN 51 H Creatinine 1.8 H Glucose POC Glucose 60 L Lactic Acid Calcium 8.3 L Phosphorus Magnesium Direct Bilirubin AST ALT Alkaline Phosphatase Lactate Dehydrogenase Troponin T C-Reactive Protein Total Protein Albumin Prealbumin Triglycerides Cholesterol LDL Cholesterol Direct HDL Cholesterol Urine pH Urine WBC (Auto) Urine Creatinine Urine Total Protein Fluid Total Protein Vancomycin Trough Rheumatoid Factor Complement C4 Miscellaneous Test Crossmatch 11/09/16 11/10/16 11/10/16 18:55 07:00 11:51 WBC RBC Hgb Hct MCV MCH MCHC RDW Plt Count Lymph % (Auto) [place] % (Auto) Lymph # [place] # Baso # Seg Neutrophils % Seg Neuts % (Manual) Lymphocytes % (Manual) Monocytes % (Manual) Eosinophils % (Manual) Basophils % (Manual) Nucleated RBC % Seg Neutrophils # Seg Neutrophils # Man Lymphocytes # (Manual) Monocytes # (Manual) Eosinophils # (Manual) Basophils # (Manual) PT INR Fibrinogen dRVVT Confirm Interp Factor V Activity POC ABG pH POC ABG pCO2 POC ABG pO2 ABG pO2 ABG HCO3 ABG Base Excess ABG Hemoglobin Oxyhemoglobin Sodium Potassium 3.0 L D Chloride 97.4 L Carbon Dioxide BUN 28 H Creatinine 1.3 H Glucose POC Glucose 68 L 120 H Lactic Acid Calcium 7.8 L Phosphorus Magnesium Direct Bilirubin AST ALT Alkaline Phosphatase Lactate Dehydrogenase Troponin T C-Reactive Protein Total Protein Albumin Prealbumin Triglycerides Cholesterol LDL Cholesterol Direct HDL Cholesterol Urine pH Urine WBC (Auto) Urine Creatinine Urine Total Protein Fluid Total Protein Vancomycin Trough Rheumatoid Factor Complement C4 Miscellaneous Test Crossmatch 11/10/16 11/11/16 11/11/16 14:20 06:59 06:59 WBC RBC 2.81 L Hgb 8.1 L Hct 24.4 L MCV MCH MCHC RDW 16.4 H Plt Count Lymph % (Auto) [place] % (Auto) 10.8 H Lymph # [place] # 1.0 H Baso # Seg Neutrophils % Seg Neuts % (Manual) Lymphocytes % (Manual) Monocytes % (Manual) Eosinophils % (Manual) Basophils % (Manual) Nucleated RBC % Seg Neutrophils # Seg Neutrophils # Man Lymphocytes # (Manual) Monocytes # (Manual) Eosinophils # (Manual) Basophils # (Manual) PT INR Fibrinogen dRVVT Confirm Interp Factor V Activity POC ABG pH POC ABG pCO2 POC ABG pO2 ABG pO2 ABG HCO3 ABG Base Excess ABG Hemoglobin Oxyhemoglobin Sodium Potassium Chloride Carbon Dioxide BUN Creatinine Glucose POC Glucose Lactic Acid Calcium Phosphorus Magnesium Direct Bilirubin AST ALT Alkaline Phosphatase Lactate Dehydrogenase 196 H Troponin T C-Reactive Protein Total Protein 6.1 L Albumin Prealbumin Triglycerides Cholesterol LDL Cholesterol Direct HDL Cholesterol Urine pH Urine WBC (Auto) Urine Creatinine Urine Total Protein Fluid Total Protein < 3.0 L Vancomycin Trough Rheumatoid Factor Complement C4 Miscellaneous Test Crossmatch 11/11/16 11/11/16 11/12/16 06:59 09:50 04:00 WBC RBC Hgb Hct MCV MCH MCHC RDW Plt Count Lymph % (Auto) [place] % (Auto) Lymph # [place] # Baso # Seg Neutrophils % Seg Neuts % (Manual) Lymphocytes % (Manual) Monocytes % (Manual) Eosinophils % (Manual) Basophils % (Manual) Nucleated RBC % Seg Neutrophils # Seg Neutrophils # Man Lymphocytes # (Manual) Monocytes # (Manual) Eosinophils # (Manual) Basophils # (Manual) PT INR 1.18 H Fibrinogen dRVVT Confirm Interp Factor V Activity POC ABG pH POC ABG pCO2 POC ABG pO2 ABG pO2 ABG HCO3 ABG Base Excess ABG Hemoglobin Oxyhemoglobin Sodium 136 L 133 L Potassium Chloride 96.1 L 94.8 L Carbon Dioxide 21 L BUN 37 H 42 H Creatinine 1.8 H 2.0 H Glucose POC Glucose Lactic Acid Calcium Phosphorus Magnesium Direct Bilirubin AST ALT Alkaline Phosphatase Lactate Dehydrogenase Troponin T C-Reactive Protein Total Protein Albumin Prealbumin Triglycerides Cholesterol LDL Cholesterol Direct HDL Cholesterol Urine pH Urine WBC (Auto) Urine Creatinine Urine Total Protein Fluid Total Protein Vancomycin Trough Rheumatoid Factor Complement C4 Miscellaneous Test Crossmatch 11/12/16 11/12/16 11/13/16 04:00 23:55 05:53 WBC RBC Hgb 8.9 L Hct 27.2 L MCV MCH MCHC RDW Plt Count Lymph % (Auto) [place] % (Auto) Lymph # [place] # Baso # Seg Neutrophils % Seg Neuts % (Manual) Lymphocytes % (Manual) Monocytes % (Manual) Eosinophils % (Manual) Basophils % (Manual) Nucleated RBC % Seg Neutrophils # Seg Neutrophils # Man Lymphocytes # (Manual) Monocytes # (Manual) Eosinophils # (Manual) Basophils # (Manual) PT INR Fibrinogen dRVVT Confirm Interp Factor V Activity POC ABG pH POC ABG pCO2 POC ABG pO2 ABG pO2 ABG HCO3 ABG Base Excess ABG Hemoglobin Oxyhemoglobin Sodium Potassium Chloride Carbon Dioxide BUN Creatinine Glucose POC Glucose 132 H 120 H Lactic Acid Calcium Phosphorus Magnesium Direct Bilirubin AST ALT Alkaline Phosphatase Lactate Dehydrogenase Troponin T C-Reactive Protein Total Protein Albumin Prealbumin Triglycerides Cholesterol LDL Cholesterol Direct HDL Cholesterol Urine pH Urine WBC (Auto) Urine Creatinine Urine Total Protein Fluid Total Protein Vancomycin Trough Rheumatoid Factor Complement C4 Miscellaneous Test Crossmatch 11/13/16 11/13/16 11/13/16 11:43 17:09 23:41 WBC RBC Hgb Hct MCV MCH MCHC RDW Plt Count Lymph % (Auto) [place] % (Auto) Lymph # [place] # Baso # Seg Neutrophils % Seg Neuts % (Manual) Lymphocytes % (Manual) Monocytes % (Manual) Eosinophils % (Manual) Basophils % (Manual) Nucleated RBC % Seg Neutrophils # Seg Neutrophils # Man Lymphocytes # (Manual) Monocytes # (Manual) Eosinophils # (Manual) Basophils # (Manual) PT INR Fibrinogen dRVVT Confirm Interp Factor V Activity POC ABG pH POC ABG pCO2 POC ABG pO2 ABG pO2 ABG HCO3 ABG Base Excess ABG Hemoglobin Oxyhemoglobin Sodium Potassium Chloride Carbon Dioxide BUN Creatinine Glucose POC Glucose 114 H 113 H 108 H Lactic Acid Calcium Phosphorus Magnesium Direct Bilirubin AST ALT Alkaline Phosphatase Lactate Dehydrogenase Troponin T C-Reactive Protein Total Protein Albumin Prealbumin Triglycerides Cholesterol LDL Cholesterol Direct HDL Cholesterol Urine pH Urine WBC (Auto) Urine Creatinine Urine Total Protein Fluid Total Protein Vancomycin Trough Rheumatoid Factor Complement C4 Miscellaneous Test Crossmatch 11/13/16 11/15/16 11/15/16 Unknown 00:37 03:30 WBC 11.2 H RBC 2.72 L Hgb 7.6 L Hct 23.4 L MCV MCH MCHC RDW 16.5 H Plt Count Lymph % (Auto) [place] % (Auto) Lymph # [place] # Baso # Seg Neutrophils % Seg Neuts % (Manual) Lymphocytes % (Manual) Monocytes % (Manual) Eosinophils % (Manual) Basophils % (Manual) Nucleated RBC % Seg Neutrophils # Seg Neutrophils # Man Lymphocytes # (Manual) Monocytes # (Manual) Eosinophils # (Manual) Basophils # (Manual) PT INR Fibrinogen dRVVT Confirm Interp Factor V Activity POC ABG pH POC ABG pCO2 POC ABG pO2 ABG pO2 ABG HCO3 ABG Base Excess ABG Hemoglobin Oxyhemoglobin Sodium 135 L Potassium Chloride 95.2 L Carbon Dioxide BUN 52 H Creatinine 2.2 H Glucose POC Glucose 108 H Lactic Acid Calcium Phosphorus Magnesium Direct Bilirubin AST ALT Alkaline Phosphatase Lactate Dehydrogenase Troponin T C-Reactive Protein Total Protein Albumin Prealbumin Triglycerides Cholesterol LDL Cholesterol Direct HDL Cholesterol Urine pH Urine WBC (Auto) Urine Creatinine Urine Total Protein Fluid Total Protein Vancomycin Trough Rheumatoid Factor Complement C4 Miscellaneous Test Crossmatch 11/15/16 11/15/16 11/15/16 03:30 05:04 11:50 WBC RBC Hgb Hct MCV MCH MCHC RDW Plt Count Lymph % (Auto) [place] % (Auto) Lymph # [place] # Baso # Seg Neutrophils % Seg Neuts % (Manual) Lymphocytes % (Manual) Monocytes % (Manual) Eosinophils % (Manual) Basophils % (Manual) Nucleated RBC % Seg Neutrophils # Seg Neutrophils # Man Lymphocytes # (Manual) Monocytes # (Manual) Eosinophils # (Manual) Basophils # (Manual) PT INR Fibrinogen dRVVT Confirm Interp Factor V Activity POC ABG pH POC ABG pCO2 POC ABG pO2 ABG pO2 ABG HCO3 ABG Base Excess ABG Hemoglobin Oxyhemoglobin Sodium Potassium 3.4 L Chloride Carbon Dioxide BUN 25 H Creatinine 1.5 H Glucose 103 H POC Glucose 121 H 144 H Lactic Acid Calcium Phosphorus Magnesium Direct Bilirubin AST ALT Alkaline Phosphatase Lactate Dehydrogenase Troponin T C-Reactive Protein Total Protein Albumin Prealbumin Triglycerides Cholesterol LDL Cholesterol Direct HDL Cholesterol Urine pH Urine WBC (Auto) Urine Creatinine Urine Total Protein Fluid Total Protein Vancomycin Trough Rheumatoid Factor Complement C4 Miscellaneous Test Crossmatch 11/15/16 11/15/16 11/16/16 21:28 23:20 11:44 WBC RBC Hgb Hct MCV MCH MCHC RDW Plt Count Lymph % (Auto) [place] % (Auto) Lymph # [place] # Baso # Seg Neutrophils % Seg Neuts % (Manual) Lymphocytes % (Manual) Monocytes % (Manual) Eosinophils % (Manual) Basophils % (Manual) Nucleated RBC % Seg Neutrophils # Seg Neutrophils # Man Lymphocytes # (Manual) Monocytes # (Manual) Eosinophils # (Manual) Basophils # (Manual) PT INR Fibrinogen dRVVT Confirm Interp Factor V Activity POC ABG pH 7.462 H POC ABG pCO2 POC ABG pO2 71 L ABG pO2 ABG HCO3 ABG Base Excess ABG Hemoglobin Oxyhemoglobin Sodium Potassium Chloride Carbon Dioxide BUN Creatinine Glucose POC Glucose 116 H 133 H Lactic Acid Calcium Phosphorus Magnesium Direct Bilirubin AST ALT Alkaline Phosphatase Lactate Dehydrogenase Troponin T C-Reactive Protein Total Protein Albumin Prealbumin Triglycerides Cholesterol LDL Cholesterol Direct HDL Cholesterol Urine pH Urine WBC (Auto) Urine Creatinine Urine Total Protein Fluid Total Protein Vancomycin Trough Rheumatoid Factor Complement C4 Miscellaneous Test Crossmatch 11/16/16 11/16/16 11/16/16 12:20 17:05 23:35 WBC 11.7 H RBC 2.73 L Hgb 7.6 L Hct 23.7 L MCV MCH MCHC RDW 16.6 H Plt Count Lymph % (Auto) [place] % (Auto) Lymph # [place] # Baso # Seg Neutrophils % Seg Neuts % (Manual) Lymphocytes % (Manual) Monocytes % (Manual) Eosinophils % (Manual) Basophils % (Manual) Nucleated RBC % Seg Neutrophils # Seg Neutrophils # Man Lymphocytes # (Manual) Monocytes # (Manual) Eosinophils # (Manual) Basophils # (Manual) PT INR Fibrinogen dRVVT Confirm Interp Factor V Activity POC ABG pH POC ABG pCO2 POC ABG pO2 ABG pO2 ABG HCO3 ABG Base Excess ABG Hemoglobin Oxyhemoglobin Sodium Potassium Chloride Carbon Dioxide BUN Creatinine Glucose POC Glucose 154 H 125 H Lactic Acid Calcium Phosphorus Magnesium Direct Bilirubin AST ALT Alkaline Phosphatase Lactate Dehydrogenase Troponin T C-Reactive Protein Total Protein Albumin Prealbumin Triglycerides Cholesterol LDL Cholesterol Direct HDL Cholesterol Urine pH Urine WBC (Auto) Urine Creatinine Urine Total Protein Fluid Total Protein Vancomycin Trough Rheumatoid Factor Complement C4 Miscellaneous Test Crossmatch 11/17/16 11/17/16 11/17/16 03:20 03:20 03:20 WBC RBC 2.55 L Hgb 7.3 L Hct 21.9 L MCV MCH MCHC RDW 16.6 H Plt Count Lymph % (Auto) [place] % (Auto) 11.5 H Lymph # [place] # 1.1 H Baso # Seg Neutrophils % Seg Neuts % (Manual) Lymphocytes % (Manual) Monocytes % (Manual) Eosinophils % (Manual) Basophils % (Manual) Nucleated RBC % Seg Neutrophils # Seg Neutrophils # Man Lymphocytes # (Manual) Monocytes # (Manual) Eosinophils # (Manual) Basophils # (Manual) PT 16.8 H INR 1.37 H Fibrinogen dRVVT Confirm Interp Factor V Activity POC ABG pH POC ABG pCO2 POC ABG pO2 ABG pO2 ABG HCO3 ABG Base Excess ABG Hemoglobin Oxyhemoglobin Sodium Potassium 3.5 L Chloride Carbon Dioxide BUN 21 H Creatinine Glucose POC Glucose Lactic Acid Calcium 7.9 L Phosphorus Magnesium Direct Bilirubin AST ALT Alkaline Phosphatase Lactate Dehydrogenase Troponin T C-Reactive Protein Total Protein Albumin Prealbumin Triglycerides Cholesterol LDL Cholesterol Direct HDL Cholesterol Urine pH Urine WBC (Auto) Urine Creatinine Urine Total Protein Fluid Total Protein Vancomycin Trough Rheumatoid Factor Complement C4 Miscellaneous Test Crossmatch 11/17/16 11/17/16 11/17/16 06:34 11:21 21:22 WBC RBC Hgb Hct MCV MCH MCHC RDW Plt Count Lymph % (Auto) [place] % (Auto) Lymph # [place] # Baso # Seg Neutrophils % Seg Neuts % (Manual) Lymphocytes % (Manual) Monocytes % (Manual) Eosinophils % (Manual) Basophils % (Manual) Nucleated RBC % Seg Neutrophils # Seg Neutrophils # Man Lymphocytes # (Manual) Monocytes # (Manual) Eosinophils # (Manual) Basophils # (Manual) PT INR Fibrinogen dRVVT Confirm Interp Factor V Activity POC ABG pH 7.467 H POC ABG pCO2 POC ABG pO2 73 L ABG pO2 ABG HCO3 ABG Base Excess ABG Hemoglobin Oxyhemoglobin Sodium Potassium Chloride Carbon Dioxide BUN Creatinine Glucose POC Glucose 121 H 119 H Lactic Acid Calcium Phosphorus Magnesium Direct Bilirubin AST ALT Alkaline Phosphatase Lactate Dehydrogenase Troponin T C-Reactive Protein Total Protein Albumin Prealbumin Triglycerides Cholesterol LDL Cholesterol Direct HDL Cholesterol Urine pH Urine WBC (Auto) Urine Creatinine Urine Total Protein Fluid Total Protein Vancomycin Trough Rheumatoid Factor Complement C4 Miscellaneous Test Crossmatch 11/18/16 11/18/16 11/19/16 12:16 17:19 00:00 WBC RBC Hgb Hct MCV MCH MCHC RDW Plt Count Lymph % (Auto) [place] % (Auto) Lymph # [place] # Baso # Seg Neutrophils % Seg Neuts % (Manual) Lymphocytes % (Manual) Monocytes % (Manual) Eosinophils % (Manual) Basophils % (Manual) Nucleated RBC % Seg Neutrophils # Seg Neutrophils # Man Lymphocytes # (Manual) Monocytes # (Manual) Eosinophils # (Manual) Basophils # (Manual) PT INR Fibrinogen dRVVT Confirm Interp Factor V Activity POC ABG pH POC ABG pCO2 POC ABG pO2 ABG pO2 ABG HCO3 ABG Base Excess ABG Hemoglobin Oxyhemoglobin Sodium Potassium Chloride Carbon Dioxide BUN Creatinine Glucose POC Glucose 124 H 162 H 139 H Lactic Acid Calcium Phosphorus Magnesium Direct Bilirubin AST ALT Alkaline Phosphatase Lactate Dehydrogenase Troponin T C-Reactive Protein Total Protein Albumin Prealbumin Triglycerides Cholesterol LDL Cholesterol Direct HDL Cholesterol Urine pH Urine WBC (Auto) Urine Creatinine Urine Total Protein Fluid Total Protein Vancomycin Trough Rheumatoid Factor Complement C4 Miscellaneous Test Crossmatch 11/19/16 11/19/16 11/20/16 05:00 12:43 00:40 WBC RBC Hgb Hct MCV MCH MCHC RDW Plt Count Lymph % (Auto) [place] % (Auto) Lymph # [place] # Baso # Seg Neutrophils % Seg Neuts % (Manual) Lymphocytes % (Manual) Monocytes % (Manual) Eosinophils % (Manual) Basophils % (Manual) Nucleated RBC % Seg Neutrophils # Seg Neutrophils # Man Lymphocytes # (Manual) Monocytes # (Manual) Eosinophils # (Manual) Basophils # (Manual) PT INR Fibrinogen dRVVT Confirm Interp Factor V Activity POC ABG pH POC ABG pCO2 POC ABG pO2 ABG pO2 ABG HCO3 ABG Base Excess ABG Hemoglobin Oxyhemoglobin Sodium Potassium Chloride Carbon Dioxide BUN Creatinine Glucose POC Glucose 110 H 125 H 136 H Lactic Acid Calcium Phosphorus Magnesium Direct Bilirubin AST ALT Alkaline Phosphatase Lactate Dehydrogenase Troponin T C-Reactive Protein Total Protein Albumin Prealbumin Triglycerides Cholesterol LDL Cholesterol Direct HDL Cholesterol Urine pH Urine WBC (Auto) Urine Creatinine Urine Total Protein Fluid Total Protein Vancomycin Trough Rheumatoid Factor Complement C4 Miscellaneous Test Crossmatch 11/20/16 11/20/16 11/20/16 05:00 05:00 05:51 WBC 13.1 H RBC 2.74 L Hgb 7.7 L Hct 23.6 L MCV MCH MCHC RDW 16.9 H Plt Count Lymph % (Auto) [place] % (Auto) 10.8 H Lymph # [place] # 1.4 H Baso # Seg Neutrophils % Seg Neuts % (Manual) Lymphocytes % (Manual) Monocytes % (Manual) Eosinophils % (Manual) Basophils % (Manual) Nucleated RBC % Seg Neutrophils # 7.9 H Seg Neutrophils # Man Lymphocytes # (Manual) Monocytes # (Manual) Eosinophils # (Manual) Basophils # (Manual) PT INR Fibrinogen dRVVT Confirm Interp Factor V Activity POC ABG pH POC ABG pCO2 POC ABG pO2 ABG pO2 ABG HCO3 ABG Base Excess ABG Hemoglobin Oxyhemoglobin Sodium Potassium Chloride Carbon Dioxide BUN 31 H Creatinine 1.8 H Glucose 129 H POC Glucose 133 H Lactic Acid Calcium Phosphorus Magnesium Direct Bilirubin AST ALT Alkaline Phosphatase Lactate Dehydrogenase Troponin T C-Reactive Protein Total Protein Albumin Prealbumin Triglycerides Cholesterol LDL Cholesterol Direct HDL Cholesterol Urine pH Urine WBC (Auto) Urine Creatinine Urine Total Protein Fluid Total Protein Vancomycin Trough Rheumatoid Factor Complement C4 Miscellaneous Test Crossmatch 11/20/16 11/20/16 11/21/16 12:40 18:10 01:20 WBC RBC Hgb Hct MCV MCH MCHC RDW Plt Count Lymph % (Auto) [place] % (Auto) Lymph # [place] # Baso # Seg Neutrophils % Seg Neuts % (Manual) Lymphocytes % (Manual) Monocytes % (Manual) Eosinophils % (Manual) Basophils % (Manual) Nucleated RBC % Seg Neutrophils # Seg Neutrophils # Man Lymphocytes # (Manual) Monocytes # (Manual) Eosinophils # (Manual) Basophils # (Manual) PT INR Fibrinogen dRVVT Confirm Interp Factor V Activity POC ABG pH POC ABG pCO2 POC ABG pO2 ABG pO2 ABG HCO3 ABG Base Excess ABG Hemoglobin Oxyhemoglobin Sodium Potassium Chloride Carbon Dioxide BUN Creatinine Glucose POC Glucose 134 H 138 H 136 H Lactic Acid Calcium Phosphorus Magnesium Direct Bilirubin AST ALT Alkaline Phosphatase Lactate Dehydrogenase Troponin T C-Reactive Protein Total Protein Albumin Prealbumin Triglycerides Cholesterol LDL Cholesterol Direct HDL Cholesterol Urine pH Urine WBC (Auto) Urine Creatinine Urine Total Protein Fluid Total Protein Vancomycin Trough Rheumatoid Factor Complement C4 Miscellaneous Test Crossmatch 11/21/16 11/21/16 11/21/16 07:04 07:45 07:45 WBC 22.0 H RBC 2.91 L Hgb 8.2 L Hct 25.4 L MCV MCH MCHC RDW 17.1 H Plt Count Lymph % (Auto) [place] % (Auto) Lymph # [place] # Baso # Seg Neutrophils % Seg Neuts % (Manual) Lymphocytes % (Manual) 8.0 L Monocytes % (Manual) Eosinophils % (Manual) Basophils % (Manual) Nucleated RBC % Seg Neutrophils # Seg Neutrophils # Man 14.7 H Lymphocytes # (Manual) Monocytes # (Manual) 1.1 H Eosinophils # (Manual) Basophils # (Manual) PT INR Fibrinogen dRVVT Confirm Interp Factor V Activity POC ABG pH POC ABG pCO2 POC ABG pO2 ABG pO2 ABG HCO3 ABG Base Excess ABG Hemoglobin Oxyhemoglobin Sodium Potassium Chloride Carbon Dioxide BUN 42 H Creatinine 2.0 H Glucose POC Glucose 108 H Lactic Acid Calcium Phosphorus Magnesium Direct Bilirubin AST ALT Alkaline Phosphatase Lactate Dehydrogenase Troponin T C-Reactive Protein Total Protein Albumin Prealbumin Triglycerides Cholesterol LDL Cholesterol Direct HDL Cholesterol Urine pH Urine WBC (Auto) Urine Creatinine Urine Total Protein Fluid Total Protein Vancomycin Trough Rheumatoid Factor Complement C4 Miscellaneous Test Crossmatch 11/21/16 11/21/16 11/21/16 08:38 10:09 11:20 WBC RBC Hgb Hct MCV MCH MCHC RDW Plt Count Lymph % (Auto) [place] % (Auto) Lymph # [place] # Baso # Seg Neutrophils % Seg Neuts % (Manual) Lymphocytes % (Manual) Monocytes % (Manual) Eosinophils % (Manual) Basophils % (Manual) Nucleated RBC % Seg Neutrophils # Seg Neutrophils # Man Lymphocytes # (Manual) Monocytes # (Manual) Eosinophils # (Manual) Basophils # (Manual) PT INR Fibrinogen dRVVT Confirm Interp Factor V Activity POC ABG pH 7.346 L POC ABG pCO2 34.4 L POC ABG pO2 314 H ABG pO2 ABG HCO3 ABG Base Excess ABG Hemoglobin Oxyhemoglobin Sodium Potassium Chloride Carbon Dioxide BUN Creatinine Glucose POC Glucose 195 H 153 H Lactic Acid Calcium Phosphorus Magnesium Direct Bilirubin AST ALT Alkaline Phosphatase Lactate Dehydrogenase Troponin T C-Reactive Protein Total Protein Albumin Prealbumin Triglycerides Cholesterol LDL Cholesterol Direct HDL Cholesterol Urine pH Urine WBC (Auto) Urine Creatinine Urine Total Protein Fluid Total Protein Vancomycin Trough Rheumatoid Factor Complement C4 Miscellaneous Test Crossmatch 11/21/16 11/22/16 11/22/16 23:37 04:48 05:00 WBC 29.7 H RBC 2.73 L Hgb 7.5 L Hct 24.2 L MCV MCH 27 L MCHC RDW 17.4 H Plt Count Lymph % (Auto) [place] % (Auto) Lymph # [place] # Baso # Seg Neutrophils % Seg Neuts % (Manual) Lymphocytes % (Manual) 7.0 L Monocytes % (Manual) Eosinophils % (Manual) Basophils % (Manual) Nucleated RBC % Seg Neutrophils # Seg Neutrophils # Man 15.4 H Lymphocytes # (Manual) Monocytes # (Manual) Eosinophils # (Manual) Basophils # (Manual) PT INR Fibrinogen dRVVT Confirm Interp Factor V Activity POC ABG pH POC ABG pCO2 24.6 L POC ABG pO2 189 H ABG pO2 ABG HCO3 ABG Base Excess ABG Hemoglobin Oxyhemoglobin Sodium Potassium Chloride Carbon Dioxide BUN Creatinine Glucose POC Glucose 65 L Lactic Acid Calcium Phosphorus Magnesium Direct Bilirubin AST ALT Alkaline Phosphatase Lactate Dehydrogenase Troponin T C-Reactive Protein Total Protein Albumin Prealbumin Triglycerides Cholesterol LDL Cholesterol Direct HDL Cholesterol Urine pH Urine WBC (Auto) Urine Creatinine Urine Total Protein Fluid Total Protein Vancomycin Trough Rheumatoid Factor Complement C4 Miscellaneous Test Crossmatch 11/22/16 11/23/16 11/23/16 05:00 03:44 04:06 WBC RBC 2.52 L Hgb 7.2 L Hct 21.5 L MCV MCH MCHC RDW 17.1 H Plt Count Lymph % (Auto) [place] % (Auto) 12.4 H Lymph # [place] # 1.4 H Baso # Seg Neutrophils % Seg Neuts % (Manual) Lymphocytes % (Manual) Monocytes % (Manual) Eosinophils % (Manual) Basophils % (Manual) Nucleated RBC % Seg Neutrophils # Seg Neutrophils # Man Lymphocytes # (Manual) Monocytes # (Manual) Eosinophils # (Manual) Basophils # (Manual) PT INR Fibrinogen dRVVT Confirm Interp Factor V Activity POC ABG pH 7.493 H POC ABG pCO2 29.5 L POC ABG pO2 49 L ABG pO2 ABG HCO3 ABG Base Excess ABG Hemoglobin Oxyhemoglobin Sodium 134 L Potassium Chloride 95.9 L Carbon Dioxide 14 L D BUN 51 H Creatinine 2.6 H Glucose POC Glucose Lactic Acid Calcium Phosphorus Magnesium Direct Bilirubin AST ALT Alkaline Phosphatase Lactate Dehydrogenase Troponin T C-Reactive Protein Total Protein Albumin Prealbumin Triglycerides Cholesterol LDL Cholesterol Direct HDL Cholesterol Urine pH Urine WBC (Auto) Urine Creatinine Urine Total Protein Fluid Total Protein Vancomycin Trough Rheumatoid Factor Complement C4 Miscellaneous Test Crossmatch 11/23/16 11/23/16 11/24/16 04:06 11:29 06:39 WBC RBC Hgb Hct MCV MCH MCHC RDW Plt Count Lymph % (Auto) [place] % (Auto) Lymph # [place] # Baso # Seg Neutrophils % Seg Neuts % (Manual) Lymphocytes % (Manual) Monocytes % (Manual) Eosinophils % (Manual) Basophils % (Manual) Nucleated RBC % Seg Neutrophils # Seg Neutrophils # Man Lymphocytes # (Manual) Monocytes # (Manual) Eosinophils # (Manual) Basophils # (Manual) PT INR Fibrinogen dRVVT Confirm Interp Factor V Activity POC ABG pH POC ABG pCO2 POC ABG pO2 ABG pO2 ABG HCO3 ABG Base Excess ABG Hemoglobin Oxyhemoglobin Sodium 136 L Potassium Chloride 95.2 L Carbon Dioxide BUN 60 H Creatinine 2.9 H Glucose POC Glucose 69 L 305 H Lactic Acid Calcium Phosphorus Magnesium 1.60 L Direct Bilirubin AST ALT Alkaline Phosphatase Lactate Dehydrogenase Troponin T C-Reactive Protein Total Protein Albumin Prealbumin Triglycerides Cholesterol LDL Cholesterol Direct HDL Cholesterol Urine pH Urine WBC (Auto) Urine Creatinine Urine Total Protein Fluid Total Protein Vancomycin Trough Rheumatoid Factor Complement C4 Miscellaneous Test Crossmatch 11/24/16 11/24/16 11/24/16 06:43 08:08 08:08 WBC 11.2 H RBC 2.47 L Hgb 6.8 L Hct 20.6 L MCV MCH MCHC RDW 17.0 H Plt Count Lymph % (Auto) [place] % (Auto) 10.3 H Lymph # [place] # 1.2 H Baso # Seg Neutrophils % Seg Neuts % (Manual) Lymphocytes % (Manual) Monocytes % (Manual) Eosinophils % (Manual) Basophils % (Manual) Nucleated RBC % Seg Neutrophils # Seg Neutrophils # Man Lymphocytes # (Manual) Monocytes # (Manual) Eosinophils # (Manual) Basophils # (Manual) PT INR Fibrinogen dRVVT Confirm Interp Factor V Activity POC ABG pH POC ABG pCO2 POC ABG pO2 ABG pO2 ABG HCO3 ABG Base Excess ABG Hemoglobin Oxyhemoglobin Sodium 135 L Potassium Chloride 96.3 L Carbon Dioxide BUN 61 H Creatinine 3.1 H Glucose POC Glucose 62 L Lactic Acid Calcium 8.2 L Phosphorus Magnesium Direct Bilirubin AST ALT Alkaline Phosphatase Lactate Dehydrogenase Troponin T C-Reactive Protein Total Protein Albumin Prealbumin Triglycerides Cholesterol LDL Cholesterol Direct HDL Cholesterol Urine pH Urine WBC (Auto) Urine Creatinine Urine Total Protein Fluid Total Protein Vancomycin Trough Rheumatoid Factor Complement C4 Miscellaneous Test Crossmatch 11/24/16 11/24/16 11/24/16 08:34 11:20 12:41 WBC RBC Hgb Hct MCV MCH MCHC RDW Plt Count Lymph % (Auto) [place] % (Auto) Lymph # [place] # Baso # Seg Neutrophils % Seg Neuts % (Manual) Lymphocytes % (Manual) Monocytes % (Manual) Eosinophils % (Manual) Basophils % (Manual) Nucleated RBC % Seg Neutrophils # Seg Neutrophils # Man Lymphocytes # (Manual) Monocytes # (Manual) Eosinophils # (Manual) Basophils # (Manual) PT INR Fibrinogen dRVVT Confirm Interp Factor V Activity POC ABG pH POC ABG pCO2 POC ABG pO2 ABG pO2 ABG HCO3 ABG Base Excess ABG Hemoglobin Oxyhemoglobin Sodium Potassium Chloride Carbon Dioxide BUN Creatinine Glucose POC Glucose 108 H Lactic Acid Calcium Phosphorus Magnesium 1.60 L Direct Bilirubin AST ALT Alkaline Phosphatase Lactate Dehydrogenase Troponin T C-Reactive Protein Total Protein Albumin Prealbumin Triglycerides Cholesterol LDL Cholesterol Direct HDL Cholesterol Urine pH Urine WBC (Auto) Urine Creatinine Urine Total Protein Fluid Total Protein Vancomycin Trough Rheumatoid Factor Complement C4 Miscellaneous Test Crossmatch See Detail 11/25/16 11/25/16 11/25/16 00:03 04:42 04:42 WBC RBC 3.03 L Hgb 8.6 L Hct 25.3 L MCV MCH MCHC RDW 16.2 H Plt Count Lymph % (Auto) [place] % (Auto) 8.1 H Lymph # [place] # Baso # Seg Neutrophils % 71.3 H Seg Neuts % (Manual) Lymphocytes % (Manual) Monocytes % (Manual) Eosinophils % (Manual) Basophils % (Manual) Nucleated RBC % Seg Neutrophils # Seg Neutrophils # Man Lymphocytes # (Manual) Monocytes # (Manual) Eosinophils # (Manual) Basophils # (Manual) PT INR Fibrinogen dRVVT Confirm Interp Factor V Activity POC ABG pH POC ABG pCO2 POC ABG pO2 ABG pO2 ABG HCO3 ABG Base Excess ABG Hemoglobin Oxyhemoglobin Sodium Potassium Chloride Carbon Dioxide BUN 61 H Creatinine 3.0 H Glucose 102 H POC Glucose 113 H Lactic Acid Calcium 8.2 L Phosphorus Magnesium Direct Bilirubin AST ALT Alkaline Phosphatase 142 H Lactate Dehydrogenase Troponin T C-Reactive Protein Total Protein 5.7 L Albumin 1.5 L Prealbumin Triglycerides Cholesterol LDL Cholesterol Direct HDL Cholesterol Urine pH Urine WBC (Auto) Urine Creatinine Urine Total Protein Fluid Total Protein Vancomycin Trough Rheumatoid Factor Complement C4 Miscellaneous Test Crossmatch 11/25/16 11/25/16 11/25/16 05:12 11:31 14:12 WBC RBC Hgb Hct MCV MCH MCHC RDW Plt Count Lymph % (Auto) [place] % (Auto) Lymph # [place] # Baso # Seg Neutrophils % Seg Neuts % (Manual) Lymphocytes % (Manual) Monocytes % (Manual) Eosinophils % (Manual) Basophils % (Manual) Nucleated RBC % Seg Neutrophils # Seg Neutrophils # Man Lymphocytes # (Manual) Monocytes # (Manual) Eosinophils # (Manual) Basophils # (Manual) PT INR Fibrinogen dRVVT Confirm Interp Factor V Activity POC ABG pH 7.487 H POC ABG pCO2 POC ABG pO2 153 H ABG pO2 ABG HCO3 ABG Base Excess ABG Hemoglobin Oxyhemoglobin Sodium Potassium Chloride Carbon Dioxide BUN Creatinine Glucose POC Glucose 131 H 140 H Lactic Acid Calcium Phosphorus Magnesium Direct Bilirubin AST ALT Alkaline Phosphatase Lactate Dehydrogenase Troponin T C-Reactive Protein Total Protein Albumin Prealbumin Triglycerides Cholesterol LDL Cholesterol Direct HDL Cholesterol Urine pH Urine WBC (Auto) Urine Creatinine Urine Total Protein Fluid Total Protein Vancomycin Trough Rheumatoid Factor Complement C4 Miscellaneous Test Crossmatch 11/25/16 11/26/16 11/26/16 17:23 00:09 05:13 WBC RBC 2.94 L Hgb 8.4 L Hct 24.6 L MCV MCH MCHC RDW 16.4 H Plt Count Lymph % (Auto) [place] % (Auto) 12.3 H Lymph # [place] # 1.1 H Baso # Seg Neutrophils % Seg Neuts % (Manual) Lymphocytes % (Manual) Monocytes % (Manual) Eosinophils % (Manual) Basophils % (Manual) Nucleated RBC % Seg Neutrophils # Seg Neutrophils # Man Lymphocytes # (Manual) Monocytes # (Manual) Eosinophils # (Manual) Basophils # (Manual) PT INR Fibrinogen dRVVT Confirm Interp Factor V Activity POC ABG pH POC ABG pCO2 POC ABG pO2 ABG pO2 ABG HCO3 ABG Base Excess ABG Hemoglobin Oxyhemoglobin Sodium Potassium Chloride Carbon Dioxide BUN Creatinine Glucose POC Glucose 146 H 112 H Lactic Acid Calcium Phosphorus Magnesium Direct Bilirubin AST ALT Alkaline Phosphatase Lactate Dehydrogenase Troponin T C-Reactive Protein Total Protein Albumin Prealbumin Triglycerides Cholesterol LDL Cholesterol Direct HDL Cholesterol Urine pH Urine WBC (Auto) Urine Creatinine Urine Total Protein Fluid Total Protein Vancomycin Trough Rheumatoid Factor Complement C4 Miscellaneous Test Crossmatch 11/26/16 11/26/16 11/26/16 05:13 05:28 11:53 WBC RBC Hgb Hct MCV MCH MCHC RDW Plt Count Lymph % (Auto) [place] % (Auto) Lymph # [place] # Baso # Seg Neutrophils % Seg Neuts % (Manual) Lymphocytes % (Manual) Monocytes % (Manual) Eosinophils % (Manual) Basophils % (Manual) Nucleated RBC % Seg Neutrophils # Seg Neutrophils # Man Lymphocytes # (Manual) Monocytes # (Manual) Eosinophils # (Manual) Basophils # (Manual) PT INR Fibrinogen dRVVT Confirm Interp Factor V Activity POC ABG pH POC ABG pCO2 POC ABG pO2 ABG pO2 ABG HCO3 ABG Base Excess ABG Hemoglobin Oxyhemoglobin Sodium Potassium Chloride 97.8 L Carbon Dioxide BUN 37 H Creatinine 2.0 H Glucose 109 H POC Glucose 117 H 111 H Lactic Acid Calcium 7.9 L Phosphorus 1.80 L D Magnesium Direct Bilirubin AST ALT Alkaline Phosphatase Lactate Dehydrogenase Troponin T C-Reactive Protein Total Protein Albumin Prealbumin Triglycerides Cholesterol LDL Cholesterol Direct HDL Cholesterol Urine pH Urine WBC (Auto) Urine Creatinine Urine Total Protein Fluid Total Protein Vancomycin Trough Rheumatoid Factor Complement C4 Miscellaneous Test Crossmatch 11/26/16 11/27/16 11/27/16 17:14 04:50 06:02 WBC RBC Hgb Hct MCV MCH MCHC RDW Plt Count Lymph % (Auto) [place] % (Auto) Lymph # [place] # Baso # Seg Neutrophils % Seg Neuts % (Manual) Lymphocytes % (Manual) Monocytes % (Manual) Eosinophils % (Manual) Basophils % (Manual) Nucleated RBC % Seg Neutrophils # Seg Neutrophils # Man Lymphocytes # (Manual) Monocytes # (Manual) Eosinophils # (Manual) Basophils # (Manual) PT INR Fibrinogen dRVVT Confirm Interp Factor V Activity POC ABG pH POC ABG pCO2 POC ABG pO2 ABG pO2 75.2 L ABG HCO3 26.4 H ABG Base Excess ABG Hemoglobin 7.6 L Oxyhemoglobin 94.8 L Sodium Potassium Chloride Carbon Dioxide BUN 49 H Creatinine 2.3 H Glucose POC Glucose 115 H Lactic Acid Calcium Phosphorus 1.50 L Magnesium Direct Bilirubin AST ALT Alkaline Phosphatase Lactate Dehydrogenase Troponin T C-Reactive Protein Total Protein Albumin Prealbumin Triglycerides Cholesterol LDL Cholesterol Direct HDL Cholesterol Urine pH Urine WBC (Auto) Urine Creatinine Urine Total Protein Fluid Total Protein Vancomycin Trough Rheumatoid Factor Complement C4 Miscellaneous Test Crossmatch 11/27/16 11/27/16 11/27/16 06:02 11:25 17:25 WBC 11.6 H RBC 2.75 L Hgb 7.6 L Hct 23.4 L MCV MCH MCHC RDW 16.5 H Plt Count Lymph % (Auto) [place] % (Auto) Lymph # [place] # Baso # Seg Neutrophils % Seg Neuts % (Manual) Lymphocytes % (Manual) Monocytes % (Manual) Eosinophils % (Manual) Basophils % (Manual) Nucleated RBC % Seg Neutrophils # Seg Neutrophils # Man Lymphocytes # (Manual) Monocytes # (Manual) Eosinophils # (Manual) Basophils # (Manual) PT INR Fibrinogen dRVVT Confirm Interp Factor V Activity POC ABG pH POC ABG pCO2 POC ABG pO2 ABG pO2 ABG HCO3 ABG Base Excess ABG Hemoglobin Oxyhemoglobin Sodium Potassium Chloride Carbon Dioxide BUN Creatinine Glucose POC Glucose 114 H 126 H Lactic Acid Calcium Phosphorus Magnesium Direct Bilirubin AST ALT Alkaline Phosphatase Lactate Dehydrogenase Troponin T C-Reactive Protein Total Protein Albumin Prealbumin Triglycerides Cholesterol LDL Cholesterol Direct HDL Cholesterol Urine pH Urine WBC (Auto) Urine Creatinine Urine Total Protein Fluid Total Protein Vancomycin Trough Rheumatoid Factor Complement C4 Miscellaneous Test Crossmatch 11/28/16 11/28/16 11/28/16 04:45 05:33 05:44 WBC RBC Hgb Hct MCV MCH MCHC RDW Plt Count Lymph % (Auto) [place] % (Auto) Lymph # [place] # Baso # Seg Neutrophils % Seg Neuts % (Manual) Lymphocytes % (Manual) Monocytes % (Manual) Eosinophils % (Manual) Basophils % (Manual) Nucleated RBC % Seg Neutrophils # Seg Neutrophils # Man Lymphocytes # (Manual) Monocytes # (Manual) Eosinophils # (Manual) Basophils # (Manual) PT INR Fibrinogen dRVVT Confirm Interp Factor V Activity POC ABG pH POC ABG pCO2 POC ABG pO2 ABG pO2 99.3 H ABG HCO3 ABG Base Excess ABG Hemoglobin 8.3 L Oxyhemoglobin Sodium Potassium Chloride Carbon Dioxide BUN 63 H Creatinine 2.4 H Glucose 102 H POC Glucose 108 H Lactic Acid Calcium Phosphorus 1.80 L Magnesium Direct Bilirubin AST ALT Alkaline Phosphatase Lactate Dehydrogenase Troponin T C-Reactive Protein Total Protein Albumin Prealbumin Triglycerides Cholesterol LDL Cholesterol Direct HDL Cholesterol Urine pH Urine WBC (Auto) Urine Creatinine Urine Total Protein Fluid Total Protein Vancomycin Trough Rheumatoid Factor Complement C4 Miscellaneous Test Crossmatch 11/28/16 11/28/16 11/28/16 12:31 16:09 23:46 WBC RBC Hgb Hct MCV MCH MCHC RDW Plt Count Lymph % (Auto) [place] % (Auto) Lymph # [place] # Baso # Seg Neutrophils % Seg Neuts % (Manual) Lymphocytes % (Manual) Monocytes % (Manual) Eosinophils % (Manual) Basophils % (Manual) Nucleated RBC % Seg Neutrophils # Seg Neutrophils # Man Lymphocytes # (Manual) Monocytes # (Manual) Eosinophils # (Manual) Basophils # (Manual) PT INR Fibrinogen dRVVT Confirm Interp Factor V Activity POC ABG pH POC ABG pCO2 POC ABG pO2 ABG pO2 ABG HCO3 ABG Base Excess ABG Hemoglobin Oxyhemoglobin Sodium Potassium Chloride Carbon Dioxide BUN Creatinine Glucose POC Glucose 126 H 111 H 119 H Lactic Acid Calcium Phosphorus Magnesium Direct Bilirubin AST ALT Alkaline Phosphatase Lactate Dehydrogenase Troponin T C-Reactive Protein Total Protein Albumin Prealbumin Triglycerides Cholesterol LDL Cholesterol Direct HDL Cholesterol Urine pH Urine WBC (Auto) Urine Creatinine Urine Total Protein Fluid Total Protein Vancomycin Trough Rheumatoid Factor Complement C4 Miscellaneous Test Crossmatch 11/29/16 11/29/16 11/29/16 03:33 04:52 05:10 WBC RBC Hgb Hct MCV MCH MCHC RDW Plt Count Lymph % (Auto) [place] % (Auto) Lymph # [place] # Baso # Seg Neutrophils % Seg Neuts % (Manual) Lymphocytes % (Manual) Monocytes % (Manual) Eosinophils % (Manual) Basophils % (Manual) Nucleated RBC % Seg Neutrophils # Seg Neutrophils # Man Lymphocytes # (Manual) Monocytes # (Manual) Eosinophils # (Manual) Basophils # (Manual) PT INR Fibrinogen dRVVT Confirm Interp Factor V Activity POC ABG pH POC ABG pCO2 POC ABG pO2 ABG pO2 ABG HCO3 ABG Base Excess ABG Hemoglobin 7.0 L Oxyhemoglobin 94.9 L Sodium Potassium Chloride Carbon Dioxide BUN 73 H Creatinine 2.7 H Glucose POC Glucose 108 H Lactic Acid Calcium Phosphorus Magnesium Direct Bilirubin AST ALT Alkaline Phosphatase Lactate Dehydrogenase Troponin T C-Reactive Protein Total Protein Albumin Prealbumin Triglycerides Cholesterol LDL Cholesterol Direct HDL Cholesterol Urine pH Urine WBC (Auto) Urine Creatinine Urine Total Protein Fluid Total Protein Vancomycin Trough Rheumatoid Factor Complement C4 Miscellaneous Test Crossmatch 11/29/16 11/29/16 11/29/16 12:16 18:05 23:46 WBC RBC Hgb Hct MCV MCH MCHC RDW Plt Count Lymph % (Auto) [place] % (Auto) Lymph # [place] # Baso # Seg Neutrophils % Seg Neuts % (Manual) Lymphocytes % (Manual) Monocytes % (Manual) Eosinophils % (Manual) Basophils % (Manual) Nucleated RBC % Seg Neutrophils # Seg Neutrophils # Man Lymphocytes # (Manual) Monocytes # (Manual) Eosinophils # (Manual) Basophils # (Manual) PT INR Fibrinogen dRVVT Confirm Interp Factor V Activity POC ABG pH POC ABG pCO2 POC ABG pO2 ABG pO2 ABG HCO3 ABG Base Excess ABG Hemoglobin Oxyhemoglobin Sodium Potassium Chloride Carbon Dioxide BUN Creatinine Glucose POC Glucose 133 H 146 H 141 H Lactic Acid Calcium Phosphorus Magnesium Direct Bilirubin AST ALT Alkaline Phosphatase Lactate Dehydrogenase Troponin T C-Reactive Protein Total Protein Albumin Prealbumin Triglycerides Cholesterol LDL Cholesterol Direct HDL Cholesterol Urine pH Urine WBC (Auto) Urine Creatinine Urine Total Protein Fluid Total Protein Vancomycin Trough Rheumatoid Factor Complement C4 Miscellaneous Test Crossmatch 11/30/16 11/30/16 11/30/16 04:17 04:17 04:32 WBC 12.0 H RBC 2.80 L Hgb 7.8 L Hct 23.6 L MCV MCH MCHC RDW 16.6 H Plt Count Lymph % (Auto) [place] % (Auto) 11.3 H Lymph # [place] # 1.4 H Baso # Seg Neutrophils % Seg Neuts % (Manual) Lymphocytes % (Manual) Monocytes % (Manual) Eosinophils % (Manual) Basophils % (Manual) Nucleated RBC % Seg Neutrophils # 8.2 H Seg Neutrophils # Man Lymphocytes # (Manual) Monocytes # (Manual) Eosinophils # (Manual) Basophils # (Manual) PT INR Fibrinogen dRVVT Confirm Interp Factor V Activity POC ABG pH POC ABG pCO2 POC ABG pO2 ABG pO2 ABG HCO3 ABG Base Excess ABG Hemoglobin Oxyhemoglobin Sodium 169 H* D Potassium 5.1 H Chloride 121.5 H Carbon Dioxide BUN 34 H Creatinine 1.3 H D Glucose 133 H POC Glucose 131 H Lactic Acid Calcium 10.3 H Phosphorus Magnesium Direct Bilirubin AST ALT Alkaline Phosphatase Lactate Dehydrogenase Troponin T C-Reactive Protein Total Protein Albumin Prealbumin Triglycerides Cholesterol LDL Cholesterol Direct HDL Cholesterol Urine pH Urine WBC (Auto) Urine Creatinine Urine Total Protein Fluid Total Protein Vancomycin Trough Rheumatoid Factor Complement C4 Miscellaneous Test Crossmatch 11/30/16 11/30/16 11/30/16 05:45 11:10 17:26 WBC RBC Hgb Hct MCV MCH MCHC RDW Plt Count Lymph % (Auto) [place] % (Auto) Lymph # [place] # Baso # Seg Neutrophils % Seg Neuts % (Manual) Lymphocytes % (Manual) Monocytes % (Manual) Eosinophils % (Manual) Basophils % (Manual) Nucleated RBC % Seg Neutrophils # Seg Neutrophils # Man Lymphocytes # (Manual) Monocytes # (Manual) Eosinophils # (Manual) Basophils # (Manual) PT INR Fibrinogen dRVVT Confirm Interp Factor V Activity POC ABG pH POC ABG pCO2 POC ABG pO2 ABG pO2 ABG HCO3 ABG Base Excess ABG Hemoglobin Oxyhemoglobin Sodium Potassium Chloride Carbon Dioxide BUN 45 H Creatinine 1.6 H Glucose 131 H POC Glucose 146 H 134 H Lactic Acid Calcium Phosphorus Magnesium Direct Bilirubin AST ALT Alkaline Phosphatase Lactate Dehydrogenase Troponin T C-Reactive Protein Total Protein Albumin Prealbumin Triglycerides Cholesterol LDL Cholesterol Direct HDL Cholesterol Urine pH Urine WBC (Auto) Urine Creatinine Urine Total Protein Fluid Total Protein Vancomycin Trough Rheumatoid Factor Complement C4 Miscellaneous Test Crossmatch 11/30/16 12/01/16 12/01/16 23:35 00:06 03:35 WBC RBC Hgb Hct MCV MCH MCHC RDW Plt Count Lymph % (Auto) [place] % (Auto) Lymph # [place] # Baso # Seg Neutrophils % Seg Neuts % (Manual) Lymphocytes % (Manual) Monocytes % (Manual) Eosinophils % (Manual) Basophils % (Manual) Nucleated RBC % Seg Neutrophils # Seg Neutrophils # Man Lymphocytes # (Manual) Monocytes # (Manual) Eosinophils # (Manual) Basophils # (Manual) PT INR Fibrinogen dRVVT Confirm Interp Factor V Activity POC ABG pH POC ABG pCO2 POC ABG pO2 ABG pO2 ABG HCO3 ABG Base Excess ABG Hemoglobin 6.9 L Oxyhemoglobin Sodium Potassium Chloride Carbon Dioxide BUN 58 H Creatinine 1.8 H Glucose 146 H POC Glucose 151 H Lactic Acid Calcium Phosphorus Magnesium Direct Bilirubin AST ALT Alkaline Phosphatase Lactate Dehydrogenase Troponin T C-Reactive Protein Total Protein Albumin Prealbumin Triglycerides Cholesterol LDL Cholesterol Direct HDL Cholesterol Urine pH Urine WBC (Auto) Urine Creatinine Urine Total Protein Fluid Total Protein Vancomycin Trough Rheumatoid Factor Complement C4 Miscellaneous Test Crossmatch 12/01/16 12/01/16 12/01/16 03:35 05:47 11:52 WBC 12.3 H RBC 2.82 L Hgb 7.8 L Hct 23.7 L MCV MCH MCHC RDW 16.7 H Plt Count Lymph % (Auto) [place] % (Auto) 9.8 H Lymph # [place] # 1.2 H Baso # Seg Neutrophils % Seg Neuts % (Manual) Lymphocytes % (Manual) Monocytes % (Manual) Eosinophils % (Manual) Basophils % (Manual) Nucleated RBC % Seg Neutrophils # 8.4 H Seg Neutrophils # Man Lymphocytes # (Manual) Monocytes # (Manual) Eosinophils # (Manual) Basophils # (Manual) PT INR Fibrinogen dRVVT Confirm Interp Factor V Activity POC ABG pH POC ABG pCO2 POC ABG pO2 ABG pO2 ABG HCO3 ABG Base Excess ABG Hemoglobin Oxyhemoglobin Sodium Potassium Chloride Carbon Dioxide BUN Creatinine Glucose POC Glucose 152 H 152 H Lactic Acid Calcium Phosphorus Magnesium Direct Bilirubin AST ALT Alkaline Phosphatase Lactate Dehydrogenase Troponin T C-Reactive Protein Total Protein Albumin Prealbumin Triglycerides Cholesterol LDL Cholesterol Direct HDL Cholesterol Urine pH Urine WBC (Auto) Urine Creatinine Urine Total Protein Fluid Total Protein Vancomycin Trough Rheumatoid Factor Complement C4 Miscellaneous Test Crossmatch 12/01/16 12/01/16 12/02/16 17:40 23:41 05:00 WBC RBC Hgb Hct MCV MCH MCHC RDW Plt Count Lymph % (Auto) [place] % (Auto) Lymph # [place] # Baso # Seg Neutrophils % Seg Neuts % (Manual) Lymphocytes % (Manual) Monocytes % (Manual) Eosinophils % (Manual) Basophils % (Manual) Nucleated RBC % Seg Neutrophils # Seg Neutrophils # Man Lymphocytes # (Manual) Monocytes # (Manual) Eosinophils # (Manual) Basophils # (Manual) PT INR Fibrinogen dRVVT Confirm Interp Factor V Activity POC ABG pH POC ABG pCO2 POC ABG pO2 ABG pO2 ABG HCO3 ABG Base Excess ABG Hemoglobin Oxyhemoglobin Sodium Potassium Chloride Carbon Dioxide BUN 45 H Creatinine Glucose 115 H POC Glucose 140 H 144 H Lactic Acid Calcium Phosphorus Magnesium Direct Bilirubin AST ALT Alkaline Phosphatase Lactate Dehydrogenase Troponin T C-Reactive Protein Total Protein Albumin Prealbumin Triglycerides Cholesterol LDL Cholesterol Direct HDL Cholesterol Urine pH Urine WBC (Auto) Urine Creatinine Urine Total Protein Fluid Total Protein Vancomycin Trough Rheumatoid Factor Complement C4 Miscellaneous Test Crossmatch 12/02/16 12/02/16 12/02/16 05:31 11:20 17:38 WBC RBC Hgb Hct MCV MCH MCHC RDW Plt Count Lymph % (Auto) [place] % (Auto) Lymph # [place] # Baso # Seg Neutrophils % Seg Neuts % (Manual) Lymphocytes % (Manual) Monocytes % (Manual) Eosinophils % (Manual) Basophils % (Manual) Nucleated RBC % Seg Neutrophils # Seg Neutrophils # Man Lymphocytes # (Manual) Monocytes # (Manual) Eosinophils # (Manual) Basophils # (Manual) PT INR Fibrinogen dRVVT Confirm Interp Factor V Activity POC ABG pH POC ABG pCO2 POC ABG pO2 ABG pO2 ABG HCO3 ABG Base Excess ABG Hemoglobin Oxyhemoglobin Sodium Potassium Chloride Carbon Dioxide BUN Creatinine Glucose POC Glucose 136 H 177 H 139 H Lactic Acid Calcium Phosphorus Magnesium Direct Bilirubin AST ALT Alkaline Phosphatase Lactate Dehydrogenase Troponin T C-Reactive Protein Total Protein Albumin Prealbumin Triglycerides Cholesterol LDL Cholesterol Direct HDL Cholesterol Urine pH Urine WBC (Auto) Urine Creatinine Urine Total Protein Fluid Total Protein Vancomycin Trough Rheumatoid Factor Complement C4 Miscellaneous Test Crossmatch 12/02/16 12/03/16 12/03/16 23:43 04:00 04:00 WBC 20.4 H RBC 2.74 L Hgb 7.4 L Hct 23.6 L MCV MCH 27 L MCHC RDW 17.1 H Plt Count Lymph % (Auto) [place] % (Auto) Lymph # [place] # Baso # Seg Neutrophils % Seg Neuts % (Manual) 31.0 L Lymphocytes % (Manual) Monocytes % (Manual) Eosinophils % (Manual) Basophils % (Manual) Nucleated RBC % Seg Neutrophils # Seg Neutrophils # Man Lymphocytes # (Manual) Monocytes # (Manual) Eosinophils # (Manual) Basophils # (Manual) PT INR Fibrinogen dRVVT Confirm Interp Factor V Activity POC ABG pH POC ABG pCO2 POC ABG pO2 ABG pO2 ABG HCO3 ABG Base Excess ABG Hemoglobin Oxyhemoglobin Sodium Potassium Chloride Carbon Dioxide BUN 61 H Creatinine 1.6 H Glucose 119 H POC Glucose 158 H Lactic Acid Calcium Phosphorus Magnesium Direct Bilirubin AST ALT Alkaline Phosphatase Lactate Dehydrogenase Troponin T C-Reactive Protein Total Protein Albumin Prealbumin Triglycerides Cholesterol LDL Cholesterol Direct HDL Cholesterol Urine pH Urine WBC (Auto) Urine Creatinine Urine Total Protein Fluid Total Protein Vancomycin Trough Rheumatoid Factor Complement C4 Miscellaneous Test Crossmatch 12/03/16 12/03/16 12/03/16 05:02 12:11 18:16 WBC RBC Hgb Hct MCV MCH MCHC RDW Plt Count Lymph % (Auto) [place] % (Auto) Lymph # [place] # Baso # Seg Neutrophils % Seg Neuts % (Manual) Lymphocytes % (Manual) Monocytes % (Manual) Eosinophils % (Manual) Basophils % (Manual) Nucleated RBC % Seg Neutrophils # Seg Neutrophils # Man Lymphocytes # (Manual) Monocytes # (Manual) Eosinophils # (Manual) Basophils # (Manual) PT INR Fibrinogen dRVVT Confirm Interp Factor V Activity POC ABG pH POC ABG pCO2 POC ABG pO2 ABG pO2 ABG HCO3 ABG Base Excess ABG Hemoglobin Oxyhemoglobin Sodium Potassium Chloride Carbon Dioxide BUN Creatinine Glucose POC Glucose 146 H 157 H 124 H Lactic Acid Calcium Phosphorus Magnesium Direct Bilirubin AST ALT Alkaline Phosphatase Lactate Dehydrogenase Troponin T C-Reactive Protein Total Protein Albumin Prealbumin Triglycerides Cholesterol LDL Cholesterol Direct HDL Cholesterol Urine pH Urine WBC (Auto) Urine Creatinine Urine Total Protein Fluid Total Protein Vancomycin Trough Rheumatoid Factor Complement C4 Miscellaneous Test Crossmatch 12/03/16 12/04/16 12/04/16 23:41 04:00 04:45 WBC RBC Hgb Hct MCV MCH MCHC RDW Plt Count Lymph % (Auto) [place] % (Auto) Lymph # [place] # Baso # Seg Neutrophils % Seg Neuts % (Manual) Lymphocytes % (Manual) Monocytes % (Manual) Eosinophils % (Manual) Basophils % (Manual) Nucleated RBC % Seg Neutrophils # Seg Neutrophils # Man Lymphocytes # (Manual) Monocytes # (Manual) Eosinophils # (Manual) Basophils # (Manual) PT INR Fibrinogen dRVVT Confirm Interp Factor V Activity POC ABG pH POC ABG pCO2 POC ABG pO2 ABG pO2 ABG HCO3 ABG Base Excess ABG Hemoglobin Oxyhemoglobin Sodium Potassium Chloride Carbon Dioxide BUN 76 H Creatinine 1.6 H Glucose POC Glucose 130 H 136 H Lactic Acid Calcium Phosphorus Magnesium Direct Bilirubin AST ALT Alkaline Phosphatase 155 H Lactate Dehydrogenase Troponin T C-Reactive Protein Total Protein 5.5 L Albumin 1.5 L Prealbumin Triglycerides Cholesterol LDL Cholesterol Direct HDL Cholesterol Urine pH Urine WBC (Auto) Urine Creatinine Urine Total Protein Fluid Total Protein Vancomycin Trough Rheumatoid Factor Complement C4 Miscellaneous Test Crossmatch 12/04/16 12/04/16 12/05/16 12:08 17:23 00:10 WBC RBC Hgb Hct MCV MCH MCHC RDW Plt Count Lymph % (Auto) [place] % (Auto) Lymph # [place] # Baso # Seg Neutrophils % Seg Neuts % (Manual) Lymphocytes % (Manual) Monocytes % (Manual) Eosinophils % (Manual) Basophils % (Manual) Nucleated RBC % Seg Neutrophils # Seg Neutrophils # Man Lymphocytes # (Manual) Monocytes # (Manual) Eosinophils # (Manual) Basophils # (Manual) PT INR Fibrinogen dRVVT Confirm Interp Factor V Activity POC ABG pH POC ABG pCO2 POC ABG pO2 ABG pO2 ABG HCO3 ABG Base Excess ABG Hemoglobin Oxyhemoglobin Sodium Potassium Chloride Carbon Dioxide BUN Creatinine Glucose POC Glucose 114 H 129 H 124 H Lactic Acid Calcium Phosphorus Magnesium Direct Bilirubin AST ALT Alkaline Phosphatase Lactate Dehydrogenase Troponin T C-Reactive Protein Total Protein Albumin Prealbumin Triglycerides Cholesterol LDL Cholesterol Direct HDL Cholesterol Urine pH Urine WBC (Auto) Urine Creatinine Urine Total Protein Fluid Total Protein Vancomycin Trough Rheumatoid Factor Complement C4 Miscellaneous Test Crossmatch 12/05/16 12/05/16 12/05/16 05:00 05:00 05:18 WBC RBC Hgb Hct MCV MCH MCHC RDW Plt Count Lymph % (Auto) [place] % (Auto) Lymph # [place] # Baso # Seg Neutrophils % Seg Neuts % (Manual) Lymphocytes % (Manual) Monocytes % (Manual) Eosinophils % (Manual) Basophils % (Manual) Nucleated RBC % Seg Neutrophils # Seg Neutrophils # Man Lymphocytes # (Manual) Monocytes # (Manual) Eosinophils # (Manual) Basophils # (Manual) PT INR Fibrinogen dRVVT Confirm Interp Factor V Activity POC ABG pH POC ABG pCO2 POC ABG pO2 ABG pO2 ABG HCO3 ABG Base Excess ABG Hemoglobin Oxyhemoglobin Sodium Potassium Chloride Carbon Dioxide 21 L BUN 85 H Creatinine 1.9 H Glucose 131 H POC Glucose 154 H Lactic Acid Calcium Phosphorus Magnesium Direct Bilirubin AST ALT Alkaline Phosphatase Lactate Dehydrogenase Troponin T C-Reactive Protein 19.30 H Total Protein Albumin Prealbumin Triglycerides Cholesterol LDL Cholesterol Direct HDL Cholesterol Urine pH Urine WBC (Auto) Urine Creatinine Urine Total Protein Fluid Total Protein Vancomycin Trough Rheumatoid Factor Complement C4 Miscellaneous Test Crossmatch 12/05/16 12/05/16 12/05/16 11:43 17:46 23:25 WBC RBC Hgb Hct MCV MCH MCHC RDW Plt Count Lymph % (Auto) [place] % (Auto) Lymph # [place] # Baso # Seg Neutrophils % Seg Neuts % (Manual) Lymphocytes % (Manual) Monocytes % (Manual) Eosinophils % (Manual) Basophils % (Manual) Nucleated RBC % Seg Neutrophils # Seg Neutrophils # Man Lymphocytes # (Manual) Monocytes # (Manual) Eosinophils # (Manual) Basophils # (Manual) PT INR Fibrinogen dRVVT Confirm Interp Factor V Activity POC ABG pH POC ABG pCO2 POC ABG pO2 ABG pO2 ABG HCO3 ABG Base Excess ABG Hemoglobin Oxyhemoglobin Sodium Potassium Chloride Carbon Dioxide BUN Creatinine Glucose POC Glucose 117 H 113 H 111 H Lactic Acid Calcium Phosphorus Magnesium Direct Bilirubin AST ALT Alkaline Phosphatase Lactate Dehydrogenase Troponin T C-Reactive Protein Total Protein Albumin Prealbumin Triglycerides Cholesterol LDL Cholesterol Direct HDL Cholesterol Urine pH Urine WBC (Auto) Urine Creatinine Urine Total Protein Fluid Total Protein Vancomycin Trough Rheumatoid Factor Complement C4 Miscellaneous Test Crossmatch 12/05/16 12/06/16 12/06/16 Unknown 04:58 06:00 WBC RBC Hgb Hct MCV MCH MCHC RDW Plt Count Lymph % (Auto) [place] % (Auto) Lymph # [place] # Baso # Seg Neutrophils % Seg Neuts % (Manual) Lymphocytes % (Manual) Monocytes % (Manual) Eosinophils % (Manual) Basophils % (Manual) Nucleated RBC % Seg Neutrophils # Seg Neutrophils # Man Lymphocytes # (Manual) Monocytes # (Manual) Eosinophils # (Manual) Basophils # (Manual) PT INR Fibrinogen dRVVT Confirm Interp Factor V Activity POC ABG pH POC ABG pCO2 POC ABG pO2 ABG pO2 75.2 L ABG HCO3 ABG Base Excess -3.4 L ABG Hemoglobin 7.4 L Oxyhemoglobin 94.5 L Sodium Potassium Chloride Carbon Dioxide 20 L BUN 99 H Creatinine 2.1 H Glucose 126 H POC Glucose 145 H Lactic Acid Calcium Phosphorus 4.80 H Magnesium Direct Bilirubin AST ALT Alkaline Phosphatase Lactate Dehydrogenase Troponin T C-Reactive Protein Total Protein Albumin Prealbumin Triglycerides Cholesterol LDL Cholesterol Direct HDL Cholesterol Urine pH Urine WBC (Auto) Urine Creatinine Urine Total Protein Fluid Total Protein Vancomycin Trough Rheumatoid Factor Complement C4 Miscellaneous Test Crossmatch 12/06/16 12/06/16 12/06/16 06:46 11:54 17:55 WBC RBC Hgb 8.3 L Hct 26.4 L MCV MCH MCHC RDW Plt Count Lymph % (Auto) [place] % (Auto) Lymph # [place] # Baso # Seg Neutrophils % Seg Neuts % (Manual) Lymphocytes % (Manual) Monocytes % (Manual) Eosinophils % (Manual) Basophils % (Manual) Nucleated RBC % Seg Neutrophils # Seg Neutrophils # Man Lymphocytes # (Manual) Monocytes # (Manual) Eosinophils # (Manual) Basophils # (Manual) PT INR Fibrinogen dRVVT Confirm Interp Factor V Activity POC ABG pH POC ABG pCO2 POC ABG pO2 ABG pO2 ABG HCO3 ABG Base Excess ABG Hemoglobin Oxyhemoglobin Sodium Potassium Chloride Carbon Dioxide BUN Creatinine Glucose POC Glucose 126 H 157 H Lactic Acid Calcium Phosphorus Magnesium Direct Bilirubin AST ALT Alkaline Phosphatase Lactate Dehydrogenase Troponin T C-Reactive Protein Total Protein Albumin Prealbumin Triglycerides Cholesterol LDL Cholesterol Direct HDL Cholesterol Urine pH Urine WBC (Auto) Urine Creatinine Urine Total Protein Fluid Total Protein Vancomycin Trough Rheumatoid Factor Complement C4 Miscellaneous Test Crossmatch 12/06/16 12/07/16 12/07/16 23:59 05:34 06:30 WBC RBC Hgb Hct MCV MCH MCHC RDW Plt Count Lymph % (Auto) [place] % (Auto) Lymph # [place] # Baso # Seg Neutrophils % Seg Neuts % (Manual) Lymphocytes % (Manual) Monocytes % (Manual) Eosinophils % (Manual) Basophils % (Manual) Nucleated RBC % Seg Neutrophils # Seg Neutrophils # Man Lymphocytes # (Manual) Monocytes # (Manual) Eosinophils # (Manual) Basophils # (Manual) PT INR Fibrinogen dRVVT Confirm Interp Factor V Activity POC ABG pH POC ABG pCO2 POC ABG pO2 ABG pO2 ABG HCO3 ABG Base Excess ABG Hemoglobin Oxyhemoglobin Sodium Potassium Chloride Carbon Dioxide BUN 67 H Creatinine 1.4 H Glucose 126 H POC Glucose 129 H 129 H Lactic Acid Calcium Phosphorus Magnesium Direct Bilirubin AST ALT Alkaline Phosphatase Lactate Dehydrogenase Troponin T C-Reactive Protein Total Protein Albumin Prealbumin Triglycerides Cholesterol LDL Cholesterol Direct HDL Cholesterol Urine pH Urine WBC (Auto) Urine Creatinine Urine Total Protein Fluid Total Protein Vancomycin Trough Rheumatoid Factor Complement C4 Miscellaneous Test Crossmatch 12/07/16 12/07/16 12/07/16 06:30 08:00 09:45 WBC 18.8 H RBC 2.52 L Hgb 6.9 L 6.8 L Hct 21.2 L 21.1 L MCV MCH 27 L MCHC RDW 18.0 H Plt Count Lymph % (Auto) [place] % (Auto) 9.9 H Lymph # [place] # 1.9 H Baso # Seg Neutrophils % 71.8 H Seg Neuts % (Manual) Lymphocytes % (Manual) Monocytes % (Manual) Eosinophils % (Manual) Basophils % (Manual) Nucleated RBC % Seg Neutrophils # 13.5 H Seg Neutrophils # Man Lymphocytes # (Manual) Monocytes # (Manual) Eosinophils # (Manual) Basophils # (Manual) PT INR Fibrinogen dRVVT Confirm Interp Factor V Activity POC ABG pH POC ABG pCO2 POC ABG pO2 ABG pO2 ABG HCO3 ABG Base Excess ABG Hemoglobin Oxyhemoglobin Sodium Potassium Chloride Carbon Dioxide BUN Creatinine Glucose POC Glucose Lactic Acid Calcium Phosphorus Magnesium Direct Bilirubin AST ALT Alkaline Phosphatase Lactate Dehydrogenase Troponin T C-Reactive Protein Total Protein Albumin Prealbumin Triglycerides Cholesterol LDL Cholesterol Direct HDL Cholesterol Urine pH Urine WBC (Auto) Urine Creatinine Urine Total Protein Fluid Total Protein Vancomycin Trough Rheumatoid Factor Complement C4 Miscellaneous Test Crossmatch See Detail 12/07/16 12/07/16 12/07/16 11:44 18:19 23:59 WBC RBC Hgb Hct MCV MCH MCHC RDW Plt Count Lymph % (Auto) [place] % (Auto) Lymph # [place] # Baso # Seg Neutrophils % Seg Neuts % (Manual) Lymphocytes % (Manual) Monocytes % (Manual) Eosinophils % (Manual) Basophils % (Manual) Nucleated RBC % Seg Neutrophils # Seg Neutrophils # Man Lymphocytes # (Manual) Monocytes # (Manual) Eosinophils # (Manual) Basophils # (Manual) PT INR Fibrinogen dRVVT Confirm Interp Factor V Activity POC ABG pH POC ABG pCO2 POC ABG pO2 ABG pO2 ABG HCO3 ABG Base Excess ABG Hemoglobin Oxyhemoglobin Sodium Potassium Chloride Carbon Dioxide BUN Creatinine Glucose POC Glucose 137 H 138 H 133 H Lactic Acid Calcium Phosphorus Magnesium Direct Bilirubin AST ALT Alkaline Phosphatase Lactate Dehydrogenase Troponin T C-Reactive Protein Total Protein Albumin Prealbumin Triglycerides Cholesterol LDL Cholesterol Direct HDL Cholesterol Urine pH Urine WBC (Auto) Urine Creatinine Urine Total Protein Fluid Total Protein Vancomycin Trough Rheumatoid Factor Complement C4 Miscellaneous Test Crossmatch 12/08/16 12/08/16 12/08/16 05:25 05:30 05:30 WBC 23.8 H RBC 2.88 L Hgb 8.1 L Hct 24.3 L MCV MCH MCHC RDW 16.7 H Plt Count Lymph % (Auto) [place] % (Auto) Lymph # [place] # Baso # Seg Neutrophils % Seg Neuts % (Manual) 76.0 H Lymphocytes % (Manual) 9.0 L Monocytes % (Manual) 9.0 H Eosinophils % (Manual) Basophils % (Manual) Nucleated RBC % Seg Neutrophils # Seg Neutrophils # Man 18.1 H Lymphocytes # (Manual) Monocytes # (Manual) 2.1 H Eosinophils # (Manual) Basophils # (Manual) PT INR Fibrinogen dRVVT Confirm Interp Factor V Activity POC ABG pH POC ABG pCO2 POC ABG pO2 ABG pO2 ABG HCO3 ABG Base Excess ABG Hemoglobin Oxyhemoglobin Sodium Potassium Chloride Carbon Dioxide 21 L BUN 76 H Creatinine 1.6 H Glucose 133 H POC Glucose 177 H Lactic Acid Calcium Phosphorus Magnesium Direct Bilirubin AST ALT Alkaline Phosphatase Lactate Dehydrogenase Troponin T C-Reactive Protein Total Protein Albumin Prealbumin Triglycerides Cholesterol LDL Cholesterol Direct HDL Cholesterol Urine pH Urine WBC (Auto) Urine Creatinine Urine Total Protein Fluid Total Protein Vancomycin Trough Rheumatoid Factor Complement C4 Miscellaneous Test Crossmatch 12/08/16 12/08/16 12/09/16 11:45 18:00 00:00 WBC RBC Hgb Hct MCV MCH MCHC RDW Plt Count Lymph % (Auto) [place] % (Auto) Lymph # [place] # Baso # Seg Neutrophils % Seg Neuts % (Manual) Lymphocytes % (Manual) Monocytes % (Manual) Eosinophils % (Manual) Basophils % (Manual) Nucleated RBC % Seg Neutrophils # Seg Neutrophils # Man Lymphocytes # (Manual) Monocytes # (Manual) Eosinophils # (Manual) Basophils # (Manual) PT INR Fibrinogen dRVVT Confirm Interp Factor V Activity POC ABG pH POC ABG pCO2 POC ABG pO2 ABG pO2 ABG HCO3 ABG Base Excess ABG Hemoglobin Oxyhemoglobin Sodium Potassium Chloride Carbon Dioxide BUN Creatinine Glucose POC Glucose 163 H 123 H 137 H Lactic Acid Calcium Phosphorus Magnesium Direct Bilirubin AST ALT Alkaline Phosphatase Lactate Dehydrogenase Troponin T C-Reactive Protein Total Protein Albumin Prealbumin Triglycerides Cholesterol LDL Cholesterol Direct HDL Cholesterol Urine pH Urine WBC (Auto) Urine Creatinine Urine Total Protein Fluid Total Protein Vancomycin Trough Rheumatoid Factor Complement C4 Miscellaneous Test Crossmatch 12/09/16 12/09/16 12/09/16 05:34 06:00 06:00 WBC 15.5 H RBC 2.87 L Hgb 8.0 L Hct 24.2 L MCV MCH MCHC RDW 17.2 H Plt Count Lymph % (Auto) [place] % (Auto) 11.6 H Lymph # [place] # 1.8 H Baso # Seg Neutrophils % 70.8 H Seg Neuts % (Manual) Lymphocytes % (Manual) Monocytes % (Manual) Eosinophils % (Manual) Basophils % (Manual) Nucleated RBC % Seg Neutrophils # 11.0 H Seg Neutrophils # Man Lymphocytes # (Manual) Monocytes # (Manual) Eosinophils # (Manual) Basophils # (Manual) PT INR Fibrinogen dRVVT Confirm Interp Factor V Activity POC ABG pH POC ABG pCO2 POC ABG pO2 ABG pO2 ABG HCO3 ABG Base Excess ABG Hemoglobin Oxyhemoglobin Sodium Potassium Chloride Carbon Dioxide BUN 51 H Creatinine Glucose 117 H POC Glucose 136 H Lactic Acid Calcium Phosphorus Magnesium Direct Bilirubin AST ALT Alkaline Phosphatase Lactate Dehydrogenase Troponin T C-Reactive Protein Total Protein Albumin Prealbumin Triglycerides Cholesterol LDL Cholesterol Direct HDL Cholesterol Urine pH Urine WBC (Auto) Urine Creatinine Urine Total Protein Fluid Total Protein Vancomycin Trough Rheumatoid Factor Complement C4 Miscellaneous Test Crossmatch 12/09/16 12/09/16 12/09/16 12:29 17:52 23:10 WBC RBC Hgb Hct MCV MCH MCHC RDW Plt Count Lymph % (Auto) [place] % (Auto) Lymph # [place] # Baso # Seg Neutrophils % Seg Neuts % (Manual) Lymphocytes % (Manual) Monocytes % (Manual) Eosinophils % (Manual) Basophils % (Manual) Nucleated RBC % Seg Neutrophils # Seg Neutrophils # Man Lymphocytes # (Manual) Monocytes # (Manual) Eosinophils # (Manual) Basophils # (Manual) PT INR Fibrinogen dRVVT Confirm Interp Factor V Activity POC ABG pH POC ABG pCO2 POC ABG pO2 ABG pO2 ABG HCO3 ABG Base Excess ABG Hemoglobin Oxyhemoglobin Sodium Potassium Chloride Carbon Dioxide BUN Creatinine Glucose POC Glucose 139 H 140 H 129 H Lactic Acid Calcium Phosphorus Magnesium Direct Bilirubin AST ALT Alkaline Phosphatase Lactate Dehydrogenase Troponin T C-Reactive Protein Total Protein Albumin Prealbumin Triglycerides Cholesterol LDL Cholesterol Direct HDL Cholesterol Urine pH Urine WBC (Auto) Urine Creatinine Urine Total Protein Fluid Total Protein Vancomycin Trough Rheumatoid Factor Complement C4 Miscellaneous Test Crossmatch 12/10/16 12/10/16 12/10/16 05:00 05:00 06:54 WBC 15.7 H RBC 2.87 L Hgb 8.2 L Hct 24.4 L MCV MCH MCHC RDW 17.2 H Plt Count Lymph % (Auto) [place] % (Auto) 8.3 H Lymph # [place] # 1.3 H Baso # Seg Neutrophils % 72.8 H Seg Neuts % (Manual) Lymphocytes % (Manual) Monocytes % (Manual) Eosinophils % (Manual) Basophils % (Manual) Nucleated RBC % Seg Neutrophils # 11.4 H Seg Neutrophils # Man Lymphocytes # (Manual) Monocytes # (Manual) Eosinophils # (Manual) Basophils # (Manual) PT INR Fibrinogen dRVVT Confirm Interp Factor V Activity POC ABG pH POC ABG pCO2 POC ABG pO2 ABG pO2 ABG HCO3 ABG Base Excess ABG Hemoglobin Oxyhemoglobin Sodium Potassium Chloride Carbon Dioxide BUN 64 H Creatinine 1.4 H Glucose 134 H POC Glucose 154 H Lactic Acid Calcium Phosphorus Magnesium Direct Bilirubin AST ALT Alkaline Phosphatase Lactate Dehydrogenase Troponin T C-Reactive Protein Total Protein Albumin Prealbumin Triglycerides Cholesterol LDL Cholesterol Direct HDL Cholesterol Urine pH Urine WBC (Auto) Urine Creatinine Urine Total Protein Fluid Total Protein Vancomycin Trough Rheumatoid Factor Complement C4 Miscellaneous Test Crossmatch 12/10/16 12/10/16 12/10/16 11:58 17:29 23:52 WBC RBC Hgb Hct MCV MCH MCHC RDW Plt Count Lymph % (Auto) [place] % (Auto) Lymph # [place] # Baso # Seg Neutrophils % Seg Neuts % (Manual) Lymphocytes % (Manual) Monocytes % (Manual) Eosinophils % (Manual) Basophils % (Manual) Nucleated RBC % Seg Neutrophils # Seg Neutrophils # Man Lymphocytes # (Manual) Monocytes # (Manual) Eosinophils # (Manual) Basophils # (Manual) PT INR Fibrinogen dRVVT Confirm Interp Factor V Activity POC ABG pH POC ABG pCO2 POC ABG pO2 ABG pO2 ABG HCO3 ABG Base Excess ABG Hemoglobin Oxyhemoglobin Sodium Potassium Chloride Carbon Dioxide BUN Creatinine Glucose POC Glucose 144 H 163 H 125 H Lactic Acid Calcium Phosphorus Magnesium Direct Bilirubin AST ALT Alkaline Phosphatase Lactate Dehydrogenase Troponin T C-Reactive Protein Total Protein Albumin Prealbumin Triglycerides Cholesterol LDL Cholesterol Direct HDL Cholesterol Urine pH Urine WBC (Auto) Urine Creatinine Urine Total Protein Fluid Total Protein Vancomycin Trough Rheumatoid Factor Complement C4 Miscellaneous Test Crossmatch 12/11/16 12/11/16 12/11/16 05:38 06:30 06:30 WBC 14.4 H RBC 2.76 L Hgb 7.7 L Hct 23.4 L MCV MCH MCHC RDW 17.2 H Plt Count Lymph % (Auto) [place] % (Auto) 8.8 H Lymph # [place] # 1.3 H Baso # Seg Neutrophils % 72.5 H Seg Neuts % (Manual) Lymphocytes % (Manual) Monocytes % (Manual) Eosinophils % (Manual) Basophils % (Manual) Nucleated RBC % Seg Neutrophils # 10.5 H Seg Neutrophils # Man Lymphocytes # (Manual) Monocytes # (Manual) Eosinophils # (Manual) Basophils # (Manual) PT INR Fibrinogen dRVVT Confirm Interp Factor V Activity POC ABG pH POC ABG pCO2 POC ABG pO2 ABG pO2 ABG HCO3 ABG Base Excess ABG Hemoglobin Oxyhemoglobin Sodium Potassium Chloride Carbon Dioxide BUN 43 H Creatinine Glucose 124 H POC Glucose 141 H Lactic Acid Calcium 8.3 L Phosphorus Magnesium 1.60 L Direct Bilirubin AST ALT Alkaline Phosphatase Lactate Dehydrogenase Troponin T C-Reactive Protein Total Protein Albumin Prealbumin Triglycerides Cholesterol LDL Cholesterol Direct HDL Cholesterol Urine pH Urine WBC (Auto) Urine Creatinine Urine Total Protein Fluid Total Protein Vancomycin Trough Rheumatoid Factor Complement C4 Miscellaneous Test Crossmatch 12/11/16 12/11/16 12/11/16 11:15 17:59 23:48 WBC RBC Hgb Hct MCV MCH MCHC RDW Plt Count Lymph % (Auto) [place] % (Auto) Lymph # [place] # Baso # Seg Neutrophils % Seg Neuts % (Manual) Lymphocytes % (Manual) Monocytes % (Manual) Eosinophils % (Manual) Basophils % (Manual) Nucleated RBC % Seg Neutrophils # Seg Neutrophils # Man Lymphocytes # (Manual) Monocytes # (Manual) Eosinophils # (Manual) Basophils # (Manual) PT INR Fibrinogen dRVVT Confirm Interp Factor V Activity POC ABG pH POC ABG pCO2 POC ABG pO2 ABG pO2 ABG HCO3 ABG Base Excess ABG Hemoglobin Oxyhemoglobin Sodium Potassium Chloride Carbon Dioxide BUN Creatinine Glucose POC Glucose 188 H 106 H 119 H Lactic Acid Calcium Phosphorus Magnesium Direct Bilirubin AST ALT Alkaline Phosphatase Lactate Dehydrogenase Troponin T C-Reactive Protein Total Protein Albumin Prealbumin Triglycerides Cholesterol LDL Cholesterol Direct HDL Cholesterol Urine pH Urine WBC (Auto) Urine Creatinine Urine Total Protein Fluid Total Protein Vancomycin Trough Rheumatoid Factor Complement C4 Miscellaneous Test Crossmatch 12/12/16 12/12/16 12/12/16 05:00 06:01 12:20 WBC 16.7 H RBC 2.87 L Hgb 8.0 L Hct 24.2 L MCV MCH MCHC RDW 17.6 H Plt Count Lymph % (Auto) [place] % (Auto) Lymph # [place] # 1.2 H Baso # Seg Neutrophils % 75.3 H Seg Neuts % (Manual) Lymphocytes % (Manual) Monocytes % (Manual) Eosinophils % (Manual) Basophils % (Manual) Nucleated RBC % Seg Neutrophils # 12.6 H Seg Neutrophils # Man Lymphocytes # (Manual) Monocytes # (Manual) Eosinophils # (Manual) Basophils # (Manual) PT INR Fibrinogen dRVVT Confirm Interp Factor V Activity POC ABG pH POC ABG pCO2 POC ABG pO2 ABG pO2 ABG HCO3 ABG Base Excess ABG Hemoglobin Oxyhemoglobin Sodium Potassium Chloride Carbon Dioxide BUN Creatinine Glucose POC Glucose 134 H 149 H Lactic Acid Calcium Phosphorus Magnesium Direct Bilirubin AST ALT Alkaline Phosphatase Lactate Dehydrogenase Troponin T C-Reactive Protein Total Protein Albumin Prealbumin Triglycerides Cholesterol LDL Cholesterol Direct HDL Cholesterol Urine pH Urine WBC (Auto) Urine Creatinine Urine Total Protein Fluid Total Protein Vancomycin Trough Rheumatoid Factor Complement C4 Miscellaneous Test Crossmatch 12/12/16 12/12/16 12/12/16 17:38 23:01 Unknown WBC RBC Hgb Hct MCV MCH MCHC RDW Plt Count Lymph % (Auto) [place] % (Auto) Lymph # [place] # Baso # Seg Neutrophils % Seg Neuts % (Manual) Lymphocytes % (Manual) Monocytes % (Manual) Eosinophils % (Manual) Basophils % (Manual) Nucleated RBC % Seg Neutrophils # Seg Neutrophils # Man Lymphocytes # (Manual) Monocytes # (Manual) Eosinophils # (Manual) Basophils # (Manual) PT INR Fibrinogen dRVVT Confirm Interp Factor V Activity POC ABG pH POC ABG pCO2 POC ABG pO2 ABG pO2 ABG HCO3 ABG Base Excess ABG Hemoglobin Oxyhemoglobin Sodium Potassium Chloride Carbon Dioxide BUN 60 H Creatinine 1.3 H Glucose 126 H POC Glucose 127 H 144 H Lactic Acid Calcium Phosphorus Magnesium Direct Bilirubin AST ALT Alkaline Phosphatase Lactate Dehydrogenase Troponin T C-Reactive Protein Total Protein Albumin Prealbumin Triglycerides Cholesterol LDL Cholesterol Direct HDL Cholesterol Urine pH Urine WBC (Auto) Urine Creatinine Urine Total Protein Fluid Total Protein Vancomycin Trough Rheumatoid Factor Complement C4 Miscellaneous Test Crossmatch 12/13/16 12/13/1612/13/17 04:00 04:00 05:19 WBC 18.7 H RBC 2.89 L Hgb 8.3 L Hct 24.6 L MCV MCH MCHC RDW 17.5 H Plt Count Lymph % (Auto) [place] % (Auto) Lymph # [place] # 1.3 H Baso # Seg Neutrophils % 71.5 H Seg Neuts % (Manual) Lymphocytes % (Manual) Monocytes % (Manual) Eosinophils % (Manual) Basophils % (Manual) Nucleated RBC % Seg Neutrophils # 13.4 H Seg Neutrophils # Man Lymphocytes # (Manual) Monocytes # (Manual) Eosinophils # (Manual) Basophils # (Manual) PT INR Fibrinogen dRVVT Confirm Interp Factor V Activity POC ABG pH POC ABG pCO2 POC ABG pO2 ABG pO2 ABG HCO3 ABG Base Excess ABG Hemoglobin Oxyhemoglobin Sodium Potassium Chloride Carbon Dioxide BUN 73 H Creatinine 1.5 H Glucose 141 H POC Glucose 171 H Lactic Acid Calcium Phosphorus Magnesium Direct Bilirubin AST ALT Alkaline Phosphatase Lactate Dehydrogenase Troponin T C-Reactive Protein Total Protein Albumin Prealbumin Triglycerides Cholesterol LDL Cholesterol Direct HDL Cholesterol Urine pH Urine WBC (Auto) Urine Creatinine Urine Total Protein Fluid Total Protein Vancomycin Trough Rheumatoid Factor Complement C4 Miscellaneous Test Crossmatch 12/13/16 12/13/16 12/14/16 12:28 16:48 00:01 WBC RBC Hgb Hct MCV MCH MCHC RDW Plt Count Lymph % (Auto) [place] % (Auto) Lymph # [place] # Baso # Seg Neutrophils % Seg Neuts % (Manual) Lymphocytes % (Manual) Monocytes % (Manual) Eosinophils % (Manual) Basophils % (Manual) Nucleated RBC % Seg Neutrophils # Seg Neutrophils # Man Lymphocytes # (Manual) Monocytes # (Manual) Eosinophils # (Manual) Basophils # (Manual) PT INR Fibrinogen dRVVT Confirm Interp Factor V Activity POC ABG pH POC ABG pCO2 POC ABG pO2 ABG pO2 ABG HCO3 ABG Base Excess ABG Hemoglobin Oxyhemoglobin Sodium Potassium Chloride Carbon Dioxide BUN Creatinine Glucose POC Glucose 206 H 173 H 139 H Lactic Acid Calcium Phosphorus Magnesium Direct Bilirubin AST ALT Alkaline Phosphatase Lactate Dehydrogenase Troponin T C-Reactive Protein Total Protein Albumin Prealbumin Triglycerides Cholesterol LDL Cholesterol Direct HDL Cholesterol Urine pH Urine WBC (Auto) Urine Creatinine Urine Total Protein Fluid Total Protein Vancomycin Trough Rheumatoid Factor Complement C4 Miscellaneous Test Crossmatch 12/14/16 12/14/16 12/14/16 05:16 06:10 11:17 WBC RBC Hgb Hct MCV MCH MCHC RDW Plt Count Lymph % (Auto) [place] % (Auto) Lymph # [place] # Baso # Seg Neutrophils % Seg Neuts % (Manual) Lymphocytes % (Manual) Monocytes % (Manual) Eosinophils % (Manual) Basophils % (Manual) Nucleated RBC % Seg Neutrophils # Seg Neutrophils # Man Lymphocytes # (Manual) Monocytes # (Manual) Eosinophils # (Manual) Basophils # (Manual) PT INR Fibrinogen dRVVT Confirm Interp Factor V Activity POC ABG pH POC ABG pCO2 POC ABG pO2 ABG pO2 ABG HCO3 ABG Base Excess ABG Hemoglobin Oxyhemoglobin Sodium Potassium Chloride Carbon Dioxide BUN 57 H Creatinine 1.4 H Glucose 135 H POC Glucose 158 H 137 H Lactic Acid Calcium Phosphorus Magnesium Direct Bilirubin AST ALT Alkaline Phosphatase Lactate Dehydrogenase Troponin T C-Reactive Protein Total Protein Albumin Prealbumin Triglycerides Cholesterol LDL Cholesterol Direct HDL Cholesterol Urine pH Urine WBC (Auto) Urine Creatinine Urine Total Protein Fluid Total Protein Vancomycin Trough Rheumatoid Factor Complement C4 Miscellaneous Test Crossmatch 12/14/16 12/14/16 12/15/16 17:52 23:27 04:00 WBC RBC Hgb Hct MCV MCH MCHC RDW Plt Count Lymph % (Auto) [place] % (Auto) Lymph # [place] # Baso # Seg Neutrophils % Seg Neuts % (Manual) Lymphocytes % (Manual) Monocytes % (Manual) Eosinophils % (Manual) Basophils % (Manual) Nucleated RBC % Seg Neutrophils # Seg Neutrophils # Man Lymphocytes # (Manual) Monocytes # (Manual) Eosinophils # (Manual) Basophils # (Manual) PT INR Fibrinogen dRVVT Confirm Interp Factor V Activity POC ABG pH POC ABG pCO2 POC ABG pO2 ABG pO2 ABG HCO3 ABG Base Excess ABG Hemoglobin Oxyhemoglobin Sodium Potassium Chloride 97.9 L Carbon Dioxide BUN 75 H Creatinine 1.6 H Glucose 122 H POC Glucose 149 H 163 H Lactic Acid Calcium Phosphorus 5.20 H Magnesium Direct Bilirubin AST ALT Alkaline Phosphatase Lactate Dehydrogenase Troponin T C-Reactive Protein Total Protein Albumin Prealbumin Triglycerides Cholesterol LDL Cholesterol Direct HDL Cholesterol Urine pH Urine WBC (Auto) Urine Creatinine Urine Total Protein Fluid Total Protein Vancomycin Trough Rheumatoid Factor Complement C4 Miscellaneous Test Crossmatch 12/15/16 12/15/16 12/15/16 05:50 11:24 17:01 WBC RBC Hgb Hct MCV MCH MCHC RDW Plt Count Lymph % (Auto) [place] % (Auto) Lymph # [place] # Baso # Seg Neutrophils % Seg Neuts % (Manual) Lymphocytes % (Manual) Monocytes % (Manual) Eosinophils % (Manual) Basophils % (Manual) Nucleated RBC % Seg Neutrophils # Seg Neutrophils # Man Lymphocytes # (Manual) Monocytes # (Manual) Eosinophils # (Manual) Basophils # (Manual) PT INR Fibrinogen dRVVT Confirm Interp Factor V Activity POC ABG pH POC ABG pCO2 POC ABG pO2 ABG pO2 ABG HCO3 ABG Base Excess ABG Hemoglobin Oxyhemoglobin Sodium Potassium Chloride Carbon Dioxide BUN Creatinine Glucose POC Glucose 150 H 146 H 167 H Lactic Acid Calcium Phosphorus Magnesium Direct Bilirubin AST ALT Alkaline Phosphatase Lactate Dehydrogenase Troponin T C-Reactive Protein Total Protein Albumin Prealbumin Triglycerides Cholesterol LDL Cholesterol Direct HDL Cholesterol Urine pH Urine WBC (Auto) Urine Creatinine Urine Total Protein Fluid Total Protein Vancomycin Trough Rheumatoid Factor Complement C4 Miscellaneous Test Crossmatch 12/15/16 12/16/16 12/16/16 23:34 05:25 11:24 WBC RBC Hgb Hct MCV MCH MCHC RDW Plt Count Lymph % (Auto) [place] % (Auto) Lymph # [place] # Baso # Seg Neutrophils % Seg Neuts % (Manual) Lymphocytes % (Manual) Monocytes % (Manual) Eosinophils % (Manual) Basophils % (Manual) Nucleated RBC % Seg Neutrophils # Seg Neutrophils # Man Lymphocytes # (Manual) Monocytes # (Manual) Eosinophils # (Manual) Basophils # (Manual) PT INR Fibrinogen dRVVT Confirm Interp Factor V Activity POC ABG pH POC ABG pCO2 POC ABG pO2 ABG pO2 ABG HCO3 ABG Base Excess ABG Hemoglobin Oxyhemoglobin Sodium Potassium Chloride Carbon Dioxide BUN Creatinine Glucose POC Glucose 127 H 139 H 165 H Lactic Acid Calcium Phosphorus Magnesium Direct Bilirubin AST ALT Alkaline Phosphatase Lactate Dehydrogenase Troponin T C-Reactive Protein Total Protein Albumin Prealbumin Triglycerides Cholesterol LDL Cholesterol Direct HDL Cholesterol Urine pH Urine WBC (Auto) Urine Creatinine Urine Total Protein Fluid Total Protein Vancomycin Trough Rheumatoid Factor Complement C4 Miscellaneous Test Crossmatch 12/16/16 12/16/16 12/16/16 15:30 16:25 17:31 WBC 17.8 H RBC 2.38 L Hgb 6.4 L Hct 20.3 L MCV MCH 27 L MCHC RDW 17.4 H Plt Count Lymph % (Auto) [place] % (Auto) Lymph # [place] # Baso # Seg Neutrophils % Seg Neuts % (Manual) Lymphocytes % (Manual) Monocytes % (Manual) 10.0 H Eosinophils % (Manual) Basophils % (Manual) Nucleated RBC % Seg Neutrophils # Seg Neutrophils # Man 8.5 H Lymphocytes # (Manual) Monocytes # (Manual) 1.8 H Eosinophils # (Manual) Basophils # (Manual) PT INR Fibrinogen dRVVT Confirm Interp Factor V Activity POC ABG pH POC ABG pCO2 POC ABG pO2 ABG pO2 ABG HCO3 ABG Base Excess ABG Hemoglobin Oxyhemoglobin Sodium Potassium Chloride Carbon Dioxide BUN Creatinine Glucose POC Glucose 176 H Lactic Acid Calcium Phosphorus Magnesium Direct Bilirubin AST ALT Alkaline Phosphatase Lactate Dehydrogenase Troponin T C-Reactive Protein Total Protein Albumin Prealbumin Triglycerides Cholesterol LDL Cholesterol Direct HDL Cholesterol Urine pH Urine WBC (Auto) Urine Creatinine Urine Total Protein Fluid Total Protein Vancomycin Trough Rheumatoid Factor Complement C4 Miscellaneous Test Crossmatch See Detail 12/17/16 12/17/16 12/17/16 00:14 04:00 05:00 WBC 20.0 H RBC 2.99 L Hgb 8.5 L Hct 25.7 L MCV MCH MCHC RDW 17.2 H Plt Count Lymph % (Auto) [place] % (Auto) Lymph # [place] # Baso # Seg Neutrophils % Seg Neuts % (Manual) Lymphocytes % (Manual) Monocytes % (Manual) Eosinophils % (Manual) Basophils % (Manual) Nucleated RBC % Seg Neutrophils # Seg Neutrophils # Man Lymphocytes # (Manual) Monocytes # (Manual) Eosinophils # (Manual) Basophils # (Manual) PT INR Fibrinogen dRVVT Confirm Interp Factor V Activity POC ABG pH POC ABG pCO2 POC ABG pO2 ABG pO2 ABG HCO3 ABG Base Excess ABG Hemoglobin Oxyhemoglobin Sodium Potassium Chloride 97.7 L Carbon Dioxide BUN 73 H Creatinine 1.7 H Glucose 136 H POC Glucose 148 H Lactic Acid Calcium Phosphorus 2.20 L Magnesium 2.70 H Direct Bilirubin AST ALT Alkaline Phosphatase Lactate Dehydrogenase Troponin T C-Reactive Protein Total Protein Albumin Prealbumin Triglycerides Cholesterol LDL Cholesterol Direct HDL Cholesterol Urine pH Urine WBC (Auto) Urine Creatinine Urine Total Protein Fluid Total Protein Vancomycin Trough Rheumatoid Factor Complement C4 Miscellaneous Test Crossmatch 12/17/16 12/17/16 12/17/16 05:39 12:50 16:32 WBC RBC Hgb Hct MCV MCH MCHC RDW Plt Count Lymph % (Auto) [place] % (Auto) Lymph # [place] # Baso # Seg Neutrophils % Seg Neuts % (Manual) Lymphocytes % (Manual) Monocytes % (Manual) Eosinophils % (Manual) Basophils % (Manual) Nucleated RBC % Seg Neutrophils # Seg Neutrophils # Man Lymphocytes # (Manual) Monocytes # (Manual) Eosinophils # (Manual) Basophils # (Manual) PT INR Fibrinogen dRVVT Confirm Interp Factor V Activity POC ABG pH POC ABG pCO2 POC ABG pO2 ABG pO2 ABG HCO3 ABG Base Excess ABG Hemoglobin Oxyhemoglobin Sodium Potassium Chloride Carbon Dioxide BUN Creatinine Glucose POC Glucose 162 H 146 H 169 H Lactic Acid Calcium Phosphorus Magnesium Direct Bilirubin AST ALT Alkaline Phosphatase Lactate Dehydrogenase Troponin T C-Reactive Protein Total Protein Albumin Prealbumin Triglycerides Cholesterol LDL Cholesterol Direct HDL Cholesterol Urine pH Urine WBC (Auto) Urine Creatinine Urine Total Protein Fluid Total Protein Vancomycin Trough Rheumatoid Factor Complement C4 Miscellaneous Test Crossmatch 12/17/16 12/18/16 12/18/16 23:57 05:00 05:32 WBC RBC Hgb Hct MCV MCH MCHC RDW Plt Count Lymph % (Auto) [place] % (Auto) Lymph # [place] # Baso # Seg Neutrophils % Seg Neuts % (Manual) Lymphocytes % (Manual) Monocytes % (Manual) Eosinophils % (Manual) Basophils % (Manual) Nucleated RBC % Seg Neutrophils # Seg Neutrophils # Man Lymphocytes # (Manual) Monocytes # (Manual) Eosinophils # (Manual) Basophils # (Manual) PT INR Fibrinogen dRVVT Confirm Interp Factor V Activity POC ABG pH POC ABG pCO2 POC ABG pO2 ABG pO2 ABG HCO3 ABG Base Excess ABG Hemoglobin Oxyhemoglobin Sodium Potassium Chloride 97.0 L Carbon Dioxide BUN 63 H Creatinine 1.4 H Glucose 174 H POC Glucose 145 H 201 H Lactic Acid Calcium Phosphorus 1.70 L D Magnesium Direct Bilirubin AST ALT Alkaline Phosphatase 257 H Lactate Dehydrogenase Troponin T C-Reactive Protein Total Protein 5.9 L Albumin 1.8 L Prealbumin Triglycerides Cholesterol LDL Cholesterol Direct HDL Cholesterol Urine pH Urine WBC (Auto) Urine Creatinine Urine Total Protein Fluid Total Protein Vancomycin Trough Rheumatoid Factor Complement C4 Miscellaneous Test Crossmatch 12/18/16 12/18/16 12/18/16 11:43 16:52 23:52 WBC RBC Hgb Hct MCV MCH MCHC RDW Plt Count Lymph % (Auto) [place] % (Auto) Lymph # [place] # Baso # Seg Neutrophils % Seg Neuts % (Manual) Lymphocytes % (Manual) Monocytes % (Manual) Eosinophils % (Manual) Basophils % (Manual) Nucleated RBC % Seg Neutrophils # Seg Neutrophils # Man Lymphocytes # (Manual) Monocytes # (Manual) Eosinophils # (Manual) Basophils # (Manual) PT INR Fibrinogen dRVVT Confirm Interp Factor V Activity POC ABG pH POC ABG pCO2 POC ABG pO2 ABG pO2 ABG HCO3 ABG Base Excess ABG Hemoglobin Oxyhemoglobin Sodium Potassium Chloride Carbon Dioxide BUN Creatinine Glucose POC Glucose 177 H 110 H 162 H Lactic Acid Calcium Phosphorus Magnesium Direct Bilirubin AST ALT Alkaline Phosphatase Lactate Dehydrogenase Troponin T C-Reactive Protein Total Protein Albumin Prealbumin Triglycerides Cholesterol LDL Cholesterol Direct HDL Cholesterol Urine pH Urine WBC (Auto) Urine Creatinine Urine Total Protein Fluid Total Protein Vancomycin Trough Rheumatoid Factor Complement C4 Miscellaneous Test Crossmatch 12/19/16 12/19/16 12/19/16 05:02 05:24 09:30 WBC 20.1 H RBC 2.73 L Hgb 7.6 L Hct 23.6 L MCV MCH MCHC RDW 17.6 H Plt Count Lymph % (Auto) [place] % (Auto) Lymph # [place] # Baso # Seg Neutrophils % Seg Neuts % (Manual) Lymphocytes % (Manual) 13.0 L Monocytes % (Manual) Eosinophils % (Manual) Basophils % (Manual) Nucleated RBC % 1.0 H Seg Neutrophils # Seg Neutrophils # Man 12.9 H Lymphocytes # (Manual) Monocytes # (Manual) 1.4 H Eosinophils # (Manual) Basophils # (Manual) 0.2 H PT INR Fibrinogen dRVVT Confirm Interp Factor V Activity POC ABG pH POC ABG pCO2 POC ABG pO2 ABG pO2 ABG HCO3 ABG Base Excess ABG Hemoglobin Oxyhemoglobin Sodium Potassium Chloride 97.8 L Carbon Dioxide BUN 84 H Creatinine 1.6 H Glucose 133 H POC Glucose 134 H Lactic Acid Calcium Phosphorus Magnesium Direct Bilirubin AST ALT Alkaline Phosphatase Lactate Dehydrogenase Troponin T C-Reactive Protein Total Protein Albumin Prealbumin Triglycerides Cholesterol LDL Cholesterol Direct HDL Cholesterol Urine pH Urine WBC (Auto) Urine Creatinine Urine Total Protein Fluid Total Protein Vancomycin Trough Rheumatoid Factor Complement C4 Miscellaneous Test Crossmatch 12/19/16 12/19/16 12/19/16 09:36 11:12 18:29 WBC RBC Hgb Hct MCV MCH MCHC RDW Plt Count Lymph % (Auto) [place] % (Auto) Lymph # [place] # Baso # Seg Neutrophils % Seg Neuts % (Manual) Lymphocytes % (Manual) Monocytes % (Manual) Eosinophils % (Manual) Basophils % (Manual) Nucleated RBC % Seg Neutrophils # Seg Neutrophils # Man Lymphocytes # (Manual) Monocytes # (Manual) Eosinophils # (Manual) Basophils # (Manual) PT INR Fibrinogen dRVVT Confirm Interp Factor V Activity POC ABG pH 7.503 H POC ABG pCO2 30.1 L POC ABG pO2 ABG pO2 ABG HCO3 ABG Base Excess ABG Hemoglobin Oxyhemoglobin Sodium Potassium Chloride Carbon Dioxide BUN Creatinine Glucose POC Glucose 138 H 156 H Lactic Acid Calcium Phosphorus Magnesium Direct Bilirubin AST ALT Alkaline Phosphatase Lactate Dehydrogenase Troponin T C-Reactive Protein Total Protein Albumin Prealbumin Triglycerides Cholesterol LDL Cholesterol Direct HDL Cholesterol Urine pH Urine WBC (Auto) Urine Creatinine Urine Total Protein Fluid Total Protein Vancomycin Trough Rheumatoid Factor Complement C4 Miscellaneous Test Crossmatch 12/20/16 12/20/16 12/20/16 00:03 06:17 07:07 WBC RBC Hgb Hct MCV MCH MCHC RDW Plt Count Lymph % (Auto) [place] % (Auto) Lymph # [place] # Baso # Seg Neutrophils % Seg Neuts % (Manual) Lymphocytes % (Manual) Monocytes % (Manual) Eosinophils % (Manual) Basophils % (Manual) Nucleated RBC % Seg Neutrophils # Seg Neutrophils # Man Lymphocytes # (Manual) Monocytes # (Manual) Eosinophils # (Manual) Basophils # (Manual) PT INR Fibrinogen dRVVT Confirm Interp Factor V Activity POC ABG pH POC ABG pCO2 POC ABG pO2 ABG pO2 ABG HCO3 ABG Base Excess ABG Hemoglobin Oxyhemoglobin Sodium Potassium Chloride 97.1 L Carbon Dioxide 20 L BUN 97 H Creatinine 1.8 H Glucose 153 H POC Glucose 152 H 175 H Lactic Acid Calcium Phosphorus Magnesium Direct Bilirubin AST ALT Alkaline Phosphatase Lactate Dehydrogenase Troponin T C-Reactive Protein Total Protein Albumin Prealbumin Triglycerides Cholesterol LDL Cholesterol Direct HDL Cholesterol Urine pH Urine WBC (Auto) Urine Creatinine Urine Total Protein Fluid Total Protein Vancomycin Trough Rheumatoid Factor Complement C4 Miscellaneous Test Crossmatch 12/20/16 12/20/16 12/20/16 12:00 17:42 23:53 WBC RBC Hgb Hct MCV MCH MCHC RDW Plt Count Lymph % (Auto) [place] % (Auto) Lymph # [place] # Baso # Seg Neutrophils % Seg Neuts % (Manual) Lymphocytes % (Manual) Monocytes % (Manual) Eosinophils % (Manual) Basophils % (Manual) Nucleated RBC % Seg Neutrophils # Seg Neutrophils # Man Lymphocytes # (Manual) Monocytes # (Manual) Eosinophils # (Manual) Basophils # (Manual) PT INR Fibrinogen dRVVT Confirm Interp Factor V Activity POC ABG pH POC ABG pCO2 POC ABG pO2 ABG pO2 ABG HCO3 ABG Base Excess ABG Hemoglobin Oxyhemoglobin Sodium Potassium Chloride Carbon Dioxide BUN Creatinine Glucose POC Glucose 141 H 156 H 132 H Lactic Acid Calcium Phosphorus Magnesium Direct Bilirubin AST ALT Alkaline Phosphatase Lactate Dehydrogenase Troponin T C-Reactive Protein Total Protein Albumin Prealbumin Triglycerides Cholesterol LDL Cholesterol Direct HDL Cholesterol Urine pH Urine WBC (Auto) Urine Creatinine Urine Total Protein Fluid Total Protein Vancomycin Trough Rheumatoid Factor Complement C4 Miscellaneous Test Crossmatch 12/21/16 12/21/16 12/21/16 05:49 08:50 12:19 WBC RBC Hgb Hct MCV MCH MCHC RDW Plt Count Lymph % (Auto) [place] % (Auto) Lymph # [place] # Baso # Seg Neutrophils % Seg Neuts % (Manual) Lymphocytes % (Manual) Monocytes % (Manual) Eosinophils % (Manual) Basophils % (Manual) Nucleated RBC % Seg Neutrophils # Seg Neutrophils # Man Lymphocytes # (Manual) Monocytes # (Manual) Eosinophils # (Manual) Basophils # (Manual) PT INR Fibrinogen dRVVT Confirm Interp Factor V Activity POC ABG pH POC ABG pCO2 POC ABG pO2 ABG pO2 ABG HCO3 ABG Base Excess ABG Hemoglobin Oxyhemoglobin Sodium Potassium 5.2 H D Chloride Carbon Dioxide BUN 63 H Creatinine Glucose 122 H POC Glucose 132 H 136 H Lactic Acid Calcium 8.3 L Phosphorus Magnesium Direct Bilirubin AST ALT Alkaline Phosphatase Lactate Dehydrogenase Troponin T C-Reactive Protein Total Protein Albumin Prealbumin Triglycerides Cholesterol LDL Cholesterol Direct HDL Cholesterol Urine pH Urine WBC (Auto) Urine Creatinine Urine Total Protein Fluid Total Protein Vancomycin Trough Rheumatoid Factor Complement C4 Miscellaneous Test Crossmatch 12/21/16 12/21/16 12/22/16 17:22 23:58 05:49 WBC RBC Hgb Hct MCV MCH MCHC RDW Plt Count Lymph % (Auto) [place] % (Auto) Lymph # [place] # Baso # Seg Neutrophils % Seg Neuts % (Manual) Lymphocytes % (Manual) Monocytes % (Manual) Eosinophils % (Manual) Basophils % (Manual) Nucleated RBC % Seg Neutrophils # Seg Neutrophils # Man Lymphocytes # (Manual) Monocytes # (Manual) Eosinophils # (Manual) Basophils # (Manual) PT INR Fibrinogen dRVVT Confirm Interp Factor V Activity POC ABG pH POC ABG pCO2 POC ABG pO2 ABG pO2 ABG HCO3 ABG Base Excess ABG Hemoglobin Oxyhemoglobin Sodium Potassium Chloride Carbon Dioxide BUN Creatinine Glucose POC Glucose 135 H 149 H 140 H Lactic Acid Calcium Phosphorus Magnesium Direct Bilirubin AST ALT Alkaline Phosphatase Lactate Dehydrogenase Troponin T C-Reactive Protein Total Protein Albumin Prealbumin Triglycerides Cholesterol LDL Cholesterol Direct HDL Cholesterol Urine pH Urine WBC (Auto) Urine Creatinine Urine Total Protein Fluid Total Protein Vancomycin Trough Rheumatoid Factor Complement C4 Miscellaneous Test Crossmatch 12/22/16 12/22/16 12/22/16 06:10 11:17 17:31 WBC RBC Hgb Hct MCV MCH MCHC RDW Plt Count Lymph % (Auto) [place] % (Auto) Lymph # [place] # Baso # Seg Neutrophils % Seg Neuts % (Manual) Lymphocytes % (Manual) Monocytes % (Manual) Eosinophils % (Manual) Basophils % (Manual) Nucleated RBC % Seg Neutrophils # Seg Neutrophils # Man Lymphocytes # (Manual) Monocytes # (Manual) Eosinophils # (Manual) Basophils # (Manual) PT INR Fibrinogen dRVVT Confirm Interp Factor V Activity POC ABG pH POC ABG pCO2 POC ABG pO2 ABG pO2 ABG HCO3 ABG Base Excess ABG Hemoglobin Oxyhemoglobin Sodium Potassium Chloride Carbon Dioxide BUN 76 H Creatinine 1.5 H Glucose 241 H POC Glucose 193 H 148 H Lactic Acid Calcium Phosphorus Magnesium Direct Bilirubin AST ALT Alkaline Phosphatase Lactate Dehydrogenase Troponin T C-Reactive Protein Total Protein Albumin Prealbumin Triglycerides Cholesterol LDL Cholesterol Direct HDL Cholesterol Urine pH Urine WBC (Auto) Urine Creatinine Urine Total Protein Fluid Total Protein Vancomycin Trough Rheumatoid Factor Complement C4 Miscellaneous Test Crossmatch 12/22/16 12/23/16 12/23/16 23:58 05:00 05:26 WBC RBC Hgb Hct MCV MCH MCHC RDW Plt Count Lymph % (Auto) [place] % (Auto) Lymph # [place] # Baso # Seg Neutrophils % Seg Neuts % (Manual) Lymphocytes % (Manual) Monocytes % (Manual) Eosinophils % (Manual) Basophils % (Manual) Nucleated RBC % Seg Neutrophils # Seg Neutrophils # Man Lymphocytes # (Manual) Monocytes # (Manual) Eosinophils # (Manual) Basophils # (Manual) PT INR Fibrinogen dRVVT Confirm Interp Factor V Activity POC ABG pH POC ABG pCO2 POC ABG pO2 ABG pO2 ABG HCO3 ABG Base Excess ABG Hemoglobin Oxyhemoglobin Sodium Potassium Chloride Carbon Dioxide BUN 49 H Creatinine Glucose 143 H POC Glucose 165 H 154 H Lactic Acid Calcium 8.2 L Phosphorus Magnesium 1.60 L Direct Bilirubin AST ALT Alkaline Phosphatase Lactate Dehydrogenase Troponin T C-Reactive Protein Total Protein Albumin Prealbumin Triglycerides Cholesterol LDL Cholesterol Direct HDL Cholesterol Urine pH Urine WBC (Auto) Urine Creatinine Urine Total Protein Fluid Total Protein Vancomycin Trough Rheumatoid Factor Complement C4 Miscellaneous Test Crossmatch 12/23/16 12/23/16 12/24/16 12:35 17:01 00:01 WBC RBC Hgb Hct MCV MCH MCHC RDW Plt Count Lymph % (Auto) [place] % (Auto) Lymph # [place] # Baso # Seg Neutrophils % Seg Neuts % (Manual) Lymphocytes % (Manual) Monocytes % (Manual) Eosinophils % (Manual) Basophils % (Manual) Nucleated RBC % Seg Neutrophils # Seg Neutrophils # Man Lymphocytes # (Manual) Monocytes # (Manual) Eosinophils # (Manual) Basophils # (Manual) PT INR Fibrinogen dRVVT Confirm Interp Factor V Activity POC ABG pH POC ABG pCO2 POC ABG pO2 ABG pO2 ABG HCO3 ABG Base Excess ABG Hemoglobin Oxyhemoglobin Sodium Potassium Chloride Carbon Dioxide BUN Creatinine Glucose POC Glucose 164 H 149 H 135 H Lactic Acid Calcium Phosphorus Magnesium Direct Bilirubin AST ALT Alkaline Phosphatase Lactate Dehydrogenase Troponin T C-Reactive Protein Total Protein Albumin Prealbumin Triglycerides Cholesterol LDL Cholesterol Direct HDL Cholesterol Urine pH Urine WBC (Auto) Urine Creatinine Urine Total Protein Fluid Total Protein Vancomycin Trough Rheumatoid Factor Complement C4 Miscellaneous Test Crossmatch 12/24/16 12/24/16 12/24/16 05:41 07:01 11:38 WBC RBC Hgb Hct MCV MCH MCHC RDW Plt Count Lymph % (Auto) [place] % (Auto) Lymph # [place] # Baso # Seg Neutrophils % Seg Neuts % (Manual) Lymphocytes % (Manual) Monocytes % (Manual) Eosinophils % (Manual) Basophils % (Manual) Nucleated RBC % Seg Neutrophils # Seg Neutrophils # Man Lymphocytes # (Manual) Monocytes # (Manual) Eosinophils # (Manual) Basophils # (Manual) PT INR Fibrinogen dRVVT Confirm Interp Factor V Activity POC ABG pH POC ABG pCO2 POC ABG pO2 ABG pO2 ABG HCO3 ABG Base Excess ABG Hemoglobin Oxyhemoglobin Sodium Potassium Chloride Carbon Dioxide BUN 72 H Creatinine 1.3 H Glucose 130 H POC Glucose 132 H 156 H Lactic Acid Calcium 8.2 L Phosphorus Magnesium Direct Bilirubin AST ALT Alkaline Phosphatase Lactate Dehydrogenase Troponin T C-Reactive Protein Total Protein Albumin Prealbumin Triglycerides Cholesterol LDL Cholesterol Direct HDL Cholesterol Urine pH Urine WBC (Auto) Urine Creatinine Urine Total Protein Fluid Total Protein Vancomycin Trough Rheumatoid Factor Complement C4 Miscellaneous Test Crossmatch 12/24/16 12/25/16 12/25/16 17:53 00:23 05:45 WBC RBC Hgb Hct MCV MCH MCHC RDW Plt Count Lymph % (Auto) [place] % (Auto) Lymph # [place] # Baso # Seg Neutrophils % Seg Neuts % (Manual) Lymphocytes % (Manual) Monocytes % (Manual) Eosinophils % (Manual) Basophils % (Manual) Nucleated RBC % Seg Neutrophils # Seg Neutrophils # Man Lymphocytes # (Manual) Monocytes # (Manual) Eosinophils # (Manual) Basophils # (Manual) PT INR Fibrinogen dRVVT Confirm Interp Factor V Activity POC ABG pH POC ABG pCO2 POC ABG pO2 ABG pO2 ABG HCO3 ABG Base Excess ABG Hemoglobin Oxyhemoglobin Sodium 146 H Potassium Chloride Carbon Dioxide BUN 51 H Creatinine Glucose 109 H POC Glucose 169 H 117 H Lactic Acid Calcium Phosphorus Magnesium Direct Bilirubin AST ALT Alkaline Phosphatase Lactate Dehydrogenase Troponin T C-Reactive Protein Total Protein Albumin Prealbumin Triglycerides Cholesterol LDL Cholesterol Direct HDL Cholesterol Urine pH Urine WBC (Auto) Urine Creatinine Urine Total Protein Fluid Total Protein Vancomycin Trough Rheumatoid Factor Complement C4 Miscellaneous Test Crossmatch 12/25/16 12/25/16 12/25/16 06:43 11:29 17:14 WBC RBC Hgb Hct MCV MCH MCHC RDW Plt Count Lymph % (Auto) [place] % (Auto) Lymph # [place] # Baso # Seg Neutrophils % Seg Neuts % (Manual) Lymphocytes % (Manual) Monocytes % (Manual) Eosinophils % (Manual) Basophils % (Manual) Nucleated RBC % Seg Neutrophils # Seg Neutrophils # Man Lymphocytes # (Manual) Monocytes # (Manual) Eosinophils # (Manual) Basophils # (Manual) PT INR Fibrinogen dRVVT Confirm Interp Factor V Activity POC ABG pH POC ABG pCO2 POC ABG pO2 ABG pO2 ABG HCO3 ABG Base Excess ABG Hemoglobin Oxyhemoglobin Sodium Potassium Chloride Carbon Dioxide BUN Creatinine Glucose POC Glucose 117 H 128 H 120 H Lactic Acid Calcium Phosphorus Magnesium Direct Bilirubin AST ALT Alkaline Phosphatase Lactate Dehydrogenase Troponin T C-Reactive Protein Total Protein Albumin Prealbumin Triglycerides Cholesterol LDL Cholesterol Direct HDL Cholesterol Urine pH Urine WBC (Auto) Urine Creatinine Urine Total Protein Fluid Total Protein Vancomycin Trough Rheumatoid Factor Complement C4 Miscellaneous Test Crossmatch 12/25/16 12/26/16 12/26/16 23:54 05:40 05:50 WBC 16.2 H RBC 2.32 L Hgb 6.2 L Hct 20.1 L MCV MCH 27 L MCHC RDW 18.6 H Plt Count Lymph % (Auto) [place] % (Auto) Lymph # [place] # Baso # Seg Neutrophils % Seg Neuts % (Manual) Lymphocytes % (Manual) Monocytes % (Manual) Eosinophils % (Manual) Basophils % (Manual) Nucleated RBC % Seg Neutrophils # Seg Neutrophils # Man Lymphocytes # (Manual) Monocytes # (Manual) Eosinophils # (Manual) Basophils # (Manual) PT INR Fibrinogen dRVVT Confirm Interp Factor V Activity POC ABG pH POC ABG pCO2 POC ABG pO2 ABG pO2 ABG HCO3 ABG Base Excess ABG Hemoglobin Oxyhemoglobin Sodium Potassium Chloride Carbon Dioxide BUN Creatinine Glucose POC Glucose 126 H 132 H Lactic Acid Calcium Phosphorus Magnesium Direct Bilirubin AST ALT Alkaline Phosphatase Lactate Dehydrogenase Troponin T C-Reactive Protein Total Protein Albumin Prealbumin Triglycerides Cholesterol LDL Cholesterol Direct HDL Cholesterol Urine pH Urine WBC (Auto) Urine Creatinine Urine Total Protein Fluid Total Protein Vancomycin Trough Rheumatoid Factor Complement C4 Miscellaneous Test Crossmatch 12/26/16 12/26/16 12/26/16 05:50 12:17 12:33 WBC RBC Hgb Hct MCV MCH MCHC RDW Plt Count Lymph % (Auto) [place] % (Auto) Lymph # [place] # Baso # Seg Neutrophils % Seg Neuts % (Manual) Lymphocytes % (Manual) Monocytes % (Manual) Eosinophils % (Manual) Basophils % (Manual) Nucleated RBC % Seg Neutrophils # Seg Neutrophils # Man Lymphocytes # (Manual) Monocytes # (Manual) Eosinophils # (Manual) Basophils # (Manual) PT INR Fibrinogen dRVVT Confirm Interp Factor V Activity POC ABG pH POC ABG pCO2 POC ABG pO2 ABG pO2 ABG HCO3 ABG Base Excess ABG Hemoglobin Oxyhemoglobin Sodium Potassium Chloride Carbon Dioxide BUN 73 H Creatinine 1.3 H Glucose 113 H POC Glucose 117 H Lactic Acid Calcium Phosphorus Magnesium Direct Bilirubin AST ALT Alkaline Phosphatase Lactate Dehydrogenase Troponin T C-Reactive Protein Total Protein Albumin Prealbumin Triglycerides Cholesterol LDL Cholesterol Direct HDL Cholesterol Urine pH Urine WBC (Auto) Urine Creatinine Urine Total Protein Fluid Total Protein Vancomycin Trough Rheumatoid Factor Complement C4 Miscellaneous Test Crossmatch See Detail 12/26/16 12/26/16 12/27/16 20:00 23:21 05:00 WBC RBC Hgb 8.4 L Hct 26.3 L D MCV MCH MCHC RDW Plt Count Lymph % (Auto) [place] % (Auto) Lymph # [place] # Baso # Seg Neutrophils % Seg Neuts % (Manual) Lymphocytes % (Manual) Monocytes % (Manual) Eosinophils % (Manual) Basophils % (Manual) Nucleated RBC % Seg Neutrophils # Seg Neutrophils # Man Lymphocytes # (Manual) Monocytes # (Manual) Eosinophils # (Manual) Basophils # (Manual) PT INR Fibrinogen dRVVT Confirm Interp Factor V Activity POC ABG pH POC ABG pCO2 POC ABG pO2 ABG pO2 ABG HCO3 ABG Base Excess ABG Hemoglobin Oxyhemoglobin Sodium Potassium Chloride Carbon Dioxide BUN 85 H Creatinine 1.6 H Glucose 118 H POC Glucose 124 H Lactic Acid Calcium Phosphorus 4.80 H Magnesium Direct Bilirubin AST ALT Alkaline Phosphatase Lactate Dehydrogenase Troponin T C-Reactive Protein Total Protein Albumin Prealbumin Triglycerides Cholesterol LDL Cholesterol Direct HDL Cholesterol Urine pH Urine WBC (Auto) Urine Creatinine Urine Total Protein Fluid Total Protein Vancomycin Trough Rheumatoid Factor Complement C4 Miscellaneous Test Crossmatch 12/27/16 12/27/16 12/27/16 05:00 05:35 12:24 WBC RBC Hgb 7.6 L Hct 22.8 L MCV MCH MCHC RDW Plt Count Lymph % (Auto) [place] % (Auto) Lymph # [place] # Baso # Seg Neutrophils % Seg Neuts % (Manual) Lymphocytes % (Manual) Monocytes % (Manual) Eosinophils % (Manual) Basophils % (Manual) Nucleated RBC % Seg Neutrophils # Seg Neutrophils # Man Lymphocytes # (Manual) Monocytes # (Manual) Eosinophils # (Manual) Basophils # (Manual) PT INR Fibrinogen dRVVT Confirm Interp Factor V Activity POC ABG pH POC ABG pCO2 POC ABG pO2 ABG pO2 ABG HCO3 ABG Base Excess ABG Hemoglobin Oxyhemoglobin Sodium Potassium Chloride Carbon Dioxide BUN Creatinine Glucose POC Glucose 115 H 131 H Lactic Acid Calcium Phosphorus Magnesium Direct Bilirubin AST ALT Alkaline Phosphatase Lactate Dehydrogenase Troponin T C-Reactive Protein Total Protein Albumin Prealbumin Triglycerides Cholesterol LDL Cholesterol Direct HDL Cholesterol Urine pH Urine WBC (Auto) Urine Creatinine Urine Total Protein Fluid Total Protein Vancomycin Trough Rheumatoid Factor Complement C4 Miscellaneous Test Crossmatch 12/27/16 12/28/16 12/28/16 17:16 00:18 04:00 WBC RBC Hgb Hct MCV MCH MCHC RDW Plt Count Lymph % (Auto) [place] % (Auto) Lymph # [place] # Baso # Seg Neutrophils % Seg Neuts % (Manual) Lymphocytes % (Manual) Monocytes % (Manual) Eosinophils % (Manual) Basophils % (Manual) Nucleated RBC % Seg Neutrophils # Seg Neutrophils # Man Lymphocytes # (Manual) Monocytes # (Manual) Eosinophils # (Manual) Basophils # (Manual) PT INR Fibrinogen dRVVT Confirm Interp Factor V Activity POC ABG pH POC ABG pCO2 POC ABG pO2 ABG pO2 ABG HCO3 ABG Base Excess ABG Hemoglobin Oxyhemoglobin Sodium Potassium 3.5 L Chloride Carbon Dioxide BUN 57 H Creatinine Glucose 118 H POC Glucose 136 H 120 H Lactic Acid Calcium 8.3 L Phosphorus Magnesium Direct Bilirubin AST ALT Alkaline Phosphatase Lactate Dehydrogenase Troponin T C-Reactive Protein Total Protein Albumin Prealbumin Triglycerides Cholesterol LDL Cholesterol Direct HDL Cholesterol Urine pH Urine WBC (Auto) Urine Creatinine Urine Total Protein Fluid Total Protein Vancomycin Trough Rheumatoid Factor Complement C4 Miscellaneous Test Crossmatch 12/28/16 12/28/16 12/28/16 04:00 05:11 08:30 WBC 17.0 H RBC 2.58 L Hgb 7.1 L Hct 22.0 L MCV MCH MCHC RDW 17.6 H Plt Count Lymph % (Auto) 12.2 L [place] % (Auto) Lymph # [place] # 1.1 H Baso # Seg Neutrophils % 80.5 H Seg Neuts % (Manual) Lymphocytes % (Manual) Monocytes % (Manual) Eosinophils % (Manual) Basophils % (Manual) Nucleated RBC % Seg Neutrophils # 13.7 H Seg Neutrophils # Man Lymphocytes # (Manual) Monocytes # (Manual) Eosinophils # (Manual) Basophils # (Manual) PT 16.1 H INR 1.23 H Fibrinogen dRVVT Confirm Interp Factor V Activity POC ABG pH POC ABG pCO2 POC ABG pO2 ABG pO2 ABG HCO3 ABG Base Excess ABG Hemoglobin Oxyhemoglobin Sodium Potassium Chloride Carbon Dioxide BUN Creatinine Glucose POC Glucose 122 H Lactic Acid Calcium Phosphorus Magnesium Direct Bilirubin AST ALT Alkaline Phosphatase Lactate Dehydrogenase Troponin T C-Reactive Protein Total Protein Albumin Prealbumin Triglycerides Cholesterol LDL Cholesterol Direct HDL Cholesterol Urine pH Urine WBC (Auto) Urine Creatinine Urine Total Protein Fluid Total Protein Vancomycin Trough Rheumatoid Factor Complement C4 Miscellaneous Test Crossmatch 12/28/16 12/28/16 12/28/16 12:27 16:32 23:46 WBC RBC Hgb Hct MCV MCH MCHC RDW Plt Count Lymph % (Auto) [place] % (Auto) Lymph # [place] # Baso # Seg Neutrophils % Seg Neuts % (Manual) Lymphocytes % (Manual) Monocytes % (Manual) Eosinophils % (Manual) Basophils % (Manual) Nucleated RBC % Seg Neutrophils # Seg Neutrophils # Man Lymphocytes # (Manual) Monocytes # (Manual) Eosinophils # (Manual) Basophils # (Manual) PT INR Fibrinogen dRVVT Confirm Interp Factor V Activity POC ABG pH POC ABG pCO2 POC ABG pO2 ABG pO2 ABG HCO3 ABG Base Excess ABG Hemoglobin Oxyhemoglobin Sodium Potassium Chloride Carbon Dioxide BUN Creatinine Glucose POC Glucose 127 H 117 H 108 H Lactic Acid Calcium Phosphorus Magnesium Direct Bilirubin AST ALT Alkaline Phosphatase Lactate Dehydrogenase Troponin T C-Reactive Protein Total Protein Albumin Prealbumin Triglycerides Cholesterol LDL Cholesterol Direct HDL Cholesterol Urine pH Urine WBC (Auto) Urine Creatinine Urine Total Protein Fluid Total Protein Vancomycin Trough Rheumatoid Factor Complement C4 Miscellaneous Test Crossmatch 12/29/16 12/29/16 12/29/16 05:15 05:15 05:32 WBC RBC Hgb Hct MCV MCH MCHC RDW Plt Count Lymph % (Auto) [place] % (Auto) Lymph # [place] # Baso # Seg Neutrophils % Seg Neuts % (Manual) Lymphocytes % (Manual) Monocytes % (Manual) Eosinophils % (Manual) Basophils % (Manual) Nucleated RBC % Seg Neutrophils # Seg Neutrophils # Man Lymphocytes # (Manual) Monocytes # (Manual) Eosinophils # (Manual) Basophils # (Manual) PT INR Fibrinogen dRVVT Confirm Interp Factor V Activity POC ABG pH POC ABG pCO2 POC ABG pO2 ABG pO2 ABG HCO3 ABG Base Excess ABG Hemoglobin Oxyhemoglobin Sodium Potassium Chloride Carbon Dioxide BUN 74 H Creatinine 1.6 H Glucose 111 H POC Glucose 123 H Lactic Acid Calcium Phosphorus Magnesium Direct Bilirubin AST ALT Alkaline Phosphatase Lactate Dehydrogenase Troponin T C-Reactive Protein Total Protein Albumin Prealbumin 0.110 L Triglycerides Cholesterol LDL Cholesterol Direct HDL Cholesterol Urine pH Urine WBC (Auto) Urine Creatinine Urine Total Protein Fluid Total Protein Vancomycin Trough Rheumatoid Factor Complement C4 Miscellaneous Test Crossmatch 12/29/16 12/29/16 12/29/16 11:43 13:45 14:00 WBC 13.8 H RBC 2.26 L Hgb 6.3 L Hct 20.4 L MCV MCH MCHC RDW 18.3 H Plt Count Lymph % (Auto) [place] % (Auto) Lymph # [place] # 0.9 H Baso # Seg Neutrophils % 78.6 H Seg Neuts % (Manual) Lymphocytes % (Manual) Monocytes % (Manual) Eosinophils % (Manual) Basophils % (Manual) Nucleated RBC % Seg Neutrophils # 10.8 H Seg Neutrophils # Man Lymphocytes # (Manual) Monocytes # (Manual) Eosinophils # (Manual) Basophils # (Manual) PT INR Fibrinogen dRVVT Confirm Interp Factor V Activity POC ABG pH POC ABG pCO2 POC ABG pO2 ABG pO2 ABG HCO3 ABG Base Excess ABG Hemoglobin Oxyhemoglobin Sodium Potassium Chloride Carbon Dioxide BUN Creatinine Glucose POC Glucose 133 H Lactic Acid Calcium Phosphorus Magnesium Direct Bilirubin AST ALT Alkaline Phosphatase Lactate Dehydrogenase Troponin T C-Reactive Protein Total Protein Albumin Prealbumin Triglycerides Cholesterol LDL Cholesterol Direct HDL Cholesterol Urine pH Urine WBC (Auto) Urine Creatinine Urine Total Protein Fluid Total Protein Vancomycin Trough Rheumatoid Factor Complement C4 Miscellaneous Test Crossmatch See Detail 12/29/16 12/29/16 12/29/16 17:03 23:15 23:22 WBC RBC Hgb 7.3 L Hct 22.3 L MCV MCH MCHC RDW Plt Count Lymph % (Auto) [place] % (Auto) Lymph # [place] # Baso # Seg Neutrophils % Seg Neuts % (Manual) Lymphocytes % (Manual) Monocytes % (Manual) Eosinophils % (Manual) Basophils % (Manual) Nucleated RBC % Seg Neutrophils # Seg Neutrophils # Man Lymphocytes # (Manual) Monocytes # (Manual) Eosinophils # (Manual) Basophils # (Manual) PT INR Fibrinogen dRVVT Confirm Interp Factor V Activity POC ABG pH POC ABG pCO2 POC ABG pO2 ABG pO2 ABG HCO3 ABG Base Excess ABG Hemoglobin Oxyhemoglobin Sodium Potassium Chloride Carbon Dioxide BUN Creatinine Glucose POC Glucose 139 H 120 H Lactic Acid Calcium Phosphorus Magnesium Direct Bilirubin AST ALT Alkaline Phosphatase Lactate Dehydrogenase Troponin T C-Reactive Protein Total Protein Albumin Prealbumin Triglycerides Cholesterol LDL Cholesterol Direct HDL Cholesterol Urine pH Urine WBC (Auto) Urine Creatinine Urine Total Protein Fluid Total Protein Vancomycin Trough Rheumatoid Factor Complement C4 Miscellaneous Test Crossmatch 12/30/16 12/30/16 12/30/16 04:20 04:20 05:43 WBC 15.6 H RBC 2.81 L Hgb 8.0 L Hct 24.0 L MCV MCH MCHC RDW 16.9 H Plt Count Lymph % (Auto) [place] % (Auto) Lymph # [place] # 1.0 H Baso # Seg Neutrophils % 76.2 H Seg Neuts % (Manual) Lymphocytes % (Manual) Monocytes % (Manual) Eosinophils % (Manual) Basophils % (Manual) Nucleated RBC % Seg Neutrophils # 11.9 H Seg Neutrophils # Man Lymphocytes # (Manual) Monocytes # (Manual) Eosinophils # (Manual) Basophils # (Manual) PT INR Fibrinogen dRVVT Confirm Interp Factor V Activity POC ABG pH POC ABG pCO2 POC ABG pO2 ABG pO2 ABG HCO3 ABG Base Excess ABG Hemoglobin Oxyhemoglobin Sodium Potassium Chloride Carbon Dioxide BUN 87 H Creatinine 1.8 H Glucose 119 H POC Glucose 115 H Lactic Acid Calcium Phosphorus Magnesium Direct Bilirubin AST ALT Alkaline Phosphatase Lactate Dehydrogenase Troponin T C-Reactive Protein Total Protein Albumin Prealbumin Triglycerides Cholesterol LDL Cholesterol Direct HDL Cholesterol Urine pH Urine WBC (Auto) Urine Creatinine Urine Total Protein Fluid Total Protein Vancomycin Trough Rheumatoid Factor Complement C4 Miscellaneous Test Crossmatch 12/30/16 12/30/16 12/31/16 17:27 23:21 04:00 WBC RBC Hgb Hct MCV MCH MCHC RDW Plt Count Lymph % (Auto) [place] % (Auto) Lymph # [place] # Baso # Seg Neutrophils % Seg Neuts % (Manual) Lymphocytes % (Manual) Monocytes % (Manual) Eosinophils % (Manual) Basophils % (Manual) Nucleated RBC % Seg Neutrophils # Seg Neutrophils # Man Lymphocytes # (Manual) Monocytes # (Manual) Eosinophils # (Manual) Basophils # (Manual) PT INR Fibrinogen dRVVT Confirm Interp Factor V Activity POC ABG pH POC ABG pCO2 POC ABG pO2 ABG pO2 ABG HCO3 ABG Base Excess ABG Hemoglobin Oxyhemoglobin Sodium Potassium Chloride Carbon Dioxide BUN 59 H Creatinine Glucose 298 H POC Glucose 144 H 125 H Lactic Acid Calcium Phosphorus Magnesium Direct Bilirubin AST ALT Alkaline Phosphatase Lactate Dehydrogenase Troponin T C-Reactive Protein Total Protein Albumin Prealbumin Triglycerides Cholesterol LDL Cholesterol Direct HDL Cholesterol Urine pH Urine WBC (Auto) Urine Creatinine Urine Total Protein Fluid Total Protein Vancomycin Trough Rheumatoid Factor Complement C4 Miscellaneous Test Crossmatch 12/31/16 12/31/16 12/31/16 05:11 12:18 18:17 WBC RBC Hgb Hct MCV MCH MCHC RDW Plt Count Lymph % (Auto) [place] % (Auto) Lymph # [place] # Baso # Seg Neutrophils % Seg Neuts % (Manual) Lymphocytes % (Manual) Monocytes % (Manual) Eosinophils % (Manual) Basophils % (Manual) Nucleated RBC % Seg Neutrophils # Seg Neutrophils # Man Lymphocytes # (Manual) Monocytes # (Manual) Eosinophils # (Manual) Basophils # (Manual) PT INR Fibrinogen dRVVT Confirm Interp Factor V Activity POC ABG pH POC ABG pCO2 POC ABG pO2 ABG pO2 ABG HCO3 ABG Base Excess ABG Hemoglobin Oxyhemoglobin Sodium Potassium Chloride Carbon Dioxide BUN Creatinine Glucose POC Glucose 167 H 125 H 133 H Lactic Acid Calcium Phosphorus Magnesium Direct Bilirubin AST ALT Alkaline Phosphatase Lactate Dehydrogenase Troponin T C-Reactive Protein Total Protein Albumin Prealbumin Triglycerides Cholesterol LDL Cholesterol Direct HDL Cholesterol Urine pH Urine WBC (Auto) Urine Creatinine Urine Total Protein Fluid Total Protein Vancomycin Trough Rheumatoid Factor Complement C4 Miscellaneous Test Crossmatch 12/31/16 01/01/17 01/01/17 23:55 05:00 05:12 WBC RBC Hgb Hct MCV MCH MCHC RDW Plt Count Lymph % (Auto) [place] % (Auto) Lymph # [place] # Baso # Seg Neutrophils % Seg Neuts % (Manual) Lymphocytes % (Manual) Monocytes % (Manual) Eosinophils % (Manual) Basophils % (Manual) Nucleated RBC % Seg Neutrophils # Seg Neutrophils # Man Lymphocytes # (Manual) Monocytes # (Manual) Eosinophils # (Manual) Basophils # (Manual) PT INR Fibrinogen dRVVT Confirm Interp Factor V Activity POC ABG pH POC ABG pCO2 POC ABG pO2 ABG pO2 ABG HCO3 ABG Base Excess ABG Hemoglobin Oxyhemoglobin Sodium Potassium Chloride Carbon Dioxide BUN 76 H Creatinine 1.5 H Glucose 109 H POC Glucose 129 H 129 H Lactic Acid Calcium Phosphorus Magnesium Direct Bilirubin AST ALT Alkaline Phosphatase 536 H Lactate Dehydrogenase Troponin T C-Reactive Protein Total Protein Albumin 1.5 L Prealbumin Triglycerides Cholesterol LDL Cholesterol Direct HDL Cholesterol Urine pH Urine WBC (Auto) Urine Creatinine Urine Total Protein Fluid Total Protein Vancomycin Trough Rheumatoid Factor Complement C4 Miscellaneous Test Crossmatch Allied health notes reviewed: RT
[2017-01-01] MEDS: TRANSDERM-SCOP TD SCH (13:01)
[2017-01-01] MEDS: DURAGESIC TD SCH (13:02)
--- NOTE | 2017-01-01 13:50 | Progress Note ---
Assessment and Plan Assessment and plan: Patient is 46-year-old woman with a history of hypertension, diabetes, asthma, hyperlipidemia, chronic kidney disease and anxiety , who was brought in by family because, she couldn't get her words out, her face was also twisted, she was admitted for acute CVA and accelerated hypertension, she had a hx of poor adherence with her medications, and uncontrolled htn. Patient's SBP on admission was noted be greater than 260. TPA was started but this was discontinued after 5 minutes because her blood pressure became uncontrolled. The TPA was not initiated again because the patient was outside the TPA window. Status post cardiac arrest , 11/21/16 - Received CPR and was resuscitated. - Patient is on amiodarone. Fever - resolved - Antibiotic discontinued today per ID - s/p R thoracentesis on 11/14, 240cc of serous fluid removed, cx of fluid was negative - Stool negative for C. difficile Severe Sepsis with septic shock - Patient has episode of fever and leukocytosis Surgical wound infection/gram-negative sepsis/candidemia/peritonitis - On TPN JUANITA, ESRD - discussed with Dr Wadsworth and will Held HD on the weekends and will monitor Acute CVA with infarct - Neurology input appreciated - CT shows continued evolution of left MCA infarct with slight mass effect and edema, and there is no hemorrhage - PRINCE showed hyperdynamic with ef of 75%, neither clot nor septal defect seen - MRA Brain shows near complete occlusion of M2 and M3 of the left MCA - Repeat CT scan done on 09/11, shows stable findings - carotid doppler negative - Echo shows preserved systolic function but does show some left ventricular diastolic dysfunction - continue asa and statin Persistent vegetative state - This patient's needs placement at SNF - She was denied for LTACH Acute hypoxic respiratory failure requiring MV >96hrs - Status post tracheostomy, was on T piece Nosocomial acquired aspiration pneumonia/sepsis/UTI - Finished a course of antibiotics Asthma/COPD exacerbation - ON trach, mechanical ventilation Status Post CVA Bilateral pleural effusion, s/p right thoracentesis A. fib with RVR Diabetes type 2. Continue sliding-scale regular insulin and Accu-Cheks. Hyperlipidemia. Continue statin Nutrition - TPN Anemia requiring multiple transfusions/acute blood loss - currently stable - Will transfuse if it is below 7 Sacral decubitus ulcer - Status post debridement Disposition. Very poor prognosis. The high probability of a clinically significant, sudden or life threatening deterioration of the [neurologic, CV] system(s) required my full and direct attention, intervention and personal management. The aggregate critical care time was [34] minutes. This time is in addition to time spent performing reported procedures but includes the following: [x] Data Review and interpretation [x] Patient assessment and monitoring of vital signs [x] Documentation [x] Medication orders and management History Interval history: Patient was seen and evaluated this morning, patient is in persistent vegetative state. Status post trach, fistulas on the skin around the stomach area. Sacral decubitus ulcer s/p debridement. Hospitalist Physical - Physical exam Narrative exam: Patient is on mechanical ventilation, on trach. Vital signs as documented. Head exam is unremarkable. No scleral icterus . Neck is without jugular venous distension, thyromegaly, or carotid bruits. Lungs are clear to auscultation. Cardiac exam reveals regular rate and Rhythm. First and second heart sounds normal. No murmurs, rubs or gallops. Abdominal exam reveals abscess draining from the PEG site, and multiple fistulas around the stomach. Extremities are nonedematous and both femoral and pedal pulses are normal. Sacral decubitus ulcer. 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 - Constitutional Vitals: Temp Pulse Resp BP Pulse Ox 98.6 F 101 H 20 134/71 100 01/01/17 12:00 01/01/17 13:01 01/01/17 12:15 01/01/17 13:01 01/01/17 12:15 General appearance: Present: no acute distress, well-nourished, obese Results - Labs CBC & Chem 7: 12/30/16 04:20 01/01/17 05:00 Labs: Laboratory Last Values WBC 15.6 K/mm3 (4.5-11.0) H 12/30/16 04:20 RBC 2.81 M/mm3 (3.65-5.03) L 12/30/16 04:20 Hgb 8.0 gm/dl (10.1-14.3) L 12/30/16 04:20 Hct 24.0 % (30.3-42.9) L 12/30/16 04:20 MCV 86 fl (79-97) 12/30/16 04:20 MCH 29 pg (28-32) 12/30/16 04:20 MCHC 33 % (30-34) 12/30/16 04:20 RDW 16.9 % (13.2-15.2) H 12/30/16 04:20 Plt Count 319 K/mm3 (140-440) 12/30/16 04:20 Lymph % (Auto) 15.9 % (13.4-35.0) 12/30/16 04:20 [place] % (Auto) 6.7 % (0.0-7.3) 12/30/16 04:20 Eos % (Auto) 0.5 % (0.0-4.3) 12/30/16 04:20 Baso % (Auto) 0.7 % (0.0-1.8) 12/30/16 04:20 Lymph # 2.5 K/mm3 (1.2-5.4) 12/30/16 04:20 Barton # 1.0 K/mm3 (0.0-0.8) H 12/30/16 04:20 Eos # 0.1 K/mm3 (0.0-0.4) 12/30/16 04:20 Baso # 0.1 K/mm3 (0.0-0.1) 12/30/16 04:20 Add Manual Diff Complete 12/19/16 05:02 Total Counted 100 12/19/16 05:02 Seg Neutrophils % 76.2 % (40.0-70.0) H 12/30/16 04:20 Seg Neuts % (Manual) 64.0 % (40.0-70.0) 12/19/16 05:02 Band Neutrophils % 15.0 % 12/19/16 05:02 Lymphocytes % (Manual) 13.0 % (13.4-35.0) L 12/19/16 05:02 Reactive Lymphs % (Man) 0 % 12/19/16 05:02 Monocytes % (Manual) 7.0 % (0.0-7.3) 12/19/16 05:02 Eosinophils % (Manual) 0 % (0.0-4.3) 12/19/16 05:02 Basophils % (Manual) 1.0 % (0.0-1.8) 12/19/16 05:02 Metamyelocytes % 0 % 12/19/16 05:02 Myelocytes % 0 % 12/19/16 05:02 Promyelocytes % 0 % 12/19/16 05:02 Blast Cells % 0 % 12/19/16 05:02 Nucleated RBC % 1.0 % (0.0-0.9) H 12/19/16 05:02 Seg Neutrophils # 11.9 K/mm3 (1.8-7.7) H 12/30/16 04:20 Seg Neutrophils # Man 12.9 K/mm3 (1.8-7.7) H 12/19/16 05:02 Band Neutrophils # 3.0 K/mm3 12/19/16 05:02 Lymphocytes # (Manual) 2.6 K/mm3 (1.2-5.4) 12/19/16 05:02 Abs React Lymphs (Man) 0.0 K/mm3 12/19/16 05:02 Monocytes # (Manual) 1.4 K/mm3 (0.0-0.8) H 12/19/16 05:02 Eosinophils # (Manual) 0.0 K/mm3 (0.0-0.4) 12/19/16 05:02 Basophils # (Manual) 0.2 K/mm3 (0.0-0.1) H 12/19/16 05:02 Metamyelocytes # 0.0 K/mm3 12/19/16 05:02 Myelocytes # 0.0 K/mm3 12/19/16 05:02 Promyelocytes # 0.0 K/mm3 12/19/16 05:02 Blast Cells # 0.0 K/mm3 12/19/16 05:02 Pathologist Review 09/13/16 04:00 WBC Morphology Not Reportable 12/19/16 05:02 Hypersegmented Neuts Not Reportable 12/19/16 05:02 Hyposegmented Neuts Not Reportable 12/19/16 05:02 Hypogranular Neuts Not Reportable 12/19/16 05:02 Smudge Cells Not Reportable 12/19/16 05:02 Toxic Granulation Not Reportable 12/19/16 05:02 Toxic Vacuolation Not Reportable 12/19/16 05:02 Dohle Bodies Not Reportable 12/19/16 05:02 Pelger-Huet Anomaly Not Reportable 12/19/16 05:02 Jasmina Rods Not Reportable 12/19/16 05:02 Platelet Estimate Consistent w auto 12/19/16 05:02 Clumped Platelets Not Reportable 12/19/16 05:02 Plt Clumps, EDTA Not Reportable 12/19/16 05:02 Large Platelets Not Reportable 12/19/16 05:02 Giant Platelets Not Reportable 12/19/16 05:02 Platelet Satelliting Not Reportable 12/19/16 05:02 Plt Morphology Comment Not Reportable 12/19/16 05:02 RBC Morphology Not Reportable 12/19/16 05:02 Dimorphic RBCs Not Reportable 12/19/16 05:02 Polychromasia Not Reportable 12/19/16 05:02 Hypochromasia Not Reportable 12/19/16 05:02 Poikilocytosis Not Reportable 12/19/16 05:02 Anisocytosis Not Reportable 12/19/16 05:02 Microcytosis Not Reportable 12/19/16 05:02 Macrocytosis Not Reportable 12/19/16 05:02 Spherocytes Not Reportable 12/19/16 05:02 Pappenheimer Bodies Not Reportable 12/19/16 05:02 Sickle Cells Not Reportable 12/19/16 05:02 Target Cells Few 12/19/16 05:02 Tear Drop Cells Not Reportable 12/19/16 05:02 Ovalocytes Not Reportable 12/19/16 05:02 Stomatocytes Rare 12/03/16 04:00 Helmet Cells Not Reportable 12/19/16 05:02 [place] Bodies Not Reportable 12/19/16 05:02 [place] Rings Not Reportable 12/19/16 05:02 Chuck Cells Not Reportable 12/19/16 05:02 Bite Cells Not Reportable 12/19/16 05:02 Crenated Cell Not Reportable 12/19/16 05:02 Elliptocytes Not Reportable 12/19/16 05:02 Acanthocytes (Spur) Not Reportable 12/19/16 05:02 Rouleaux Not Reportable 12/19/16 05:02 Hemoglobin C Crystals Not Reportable 12/19/16 05:02 Schistocytes Not Reportable 12/19/16 05:02 Malaria parasites Not Reportable 12/19/16 05:02 ESR > 140.0 mm/Hr (0-20) 09/08/16 11:48 Jun Bodies Not Reportable 12/19/16 05:02 Hem Pathologist Commnt No 12/19/16 05:02 PT 16.1 Sec. (12.2-14.9) H 12/28/16 08:30 INR 1.23 (0.87-1.13) H 12/28/16 08:30 APTT 33.0 Sec. (24.2-36.6) 10/09/16 03:45 Thrombin Time 16.8 Sec. (15.1-19.6) 09/03/16 00:10 Fibrinogen 750 mg/dl (211-480) H 09/08/16 11:48 Lupus Anticoagulant see below 09/12/16 09:59 LA PTT Baseline See scanned report 09/12/16 09:59 dRVVT Confirm Interp Positive (Negative) H 09/12/16 09:59 dRVVT Screen 50:50 See scanned report 09/12/16 09:59 dRVVT Mix Interpret See scanned report 09/12/16 09:59 Protein C Antigen 122 % (70-140) 09/08/16 15:35 Free Protein S 97 % normal (50-147) 09/08/16 15:35 Total Protein S 109 % (70-140) 09/08/16 15:35 Antithrombin III Ag 100 % (80-120) 09/08/16 15:35 Heparin Anti-Xa, Unfract Negative (Negative) 09/29/16 13:35 Factor V Activity 182 % (65-150) H 09/08/16 15:35 POC ABG pH 7.503 (7.35-7.45) H 12/19/16 09:36 ABG pH 7.450 pH Units (7.350-7.450) 12/05/16 Unknown POC ABG pCO2 30.1 (35-45) L 12/19/16 09:36 ABG pCO2 29.6 mm Hg 12/05/16 Unknown POC ABG pO2 85 (80-105) 12/19/16 09:36 ABG pO2 75.2 mm Hg (80.0-90.0) L 12/05/16 Unknown POC ABG HCO3 23.6 12/19/16 09:36 ABG HCO3 20.1 mmol/L (20.0-26.0) 12/05/16 Unknown POC ABG Total CO2 25 12/19/16 09:36 POC ABG O2 Sat 97 12/19/16 09:36 ABG O2 Saturation 96.8 % (95.0-99.0) 12/05/16 Unknown ABG O2 Content 9.9 (0.0-44) 12/05/16 Unknown POC ABG Base Excess 1 12/19/16 09:36 ABG Base Excess -3.4 mmol/L (-2.0-3.0) L 12/05/16 Unknown ABG Hemoglobin 7.4 gm/dl (12.0-16.0) L 12/05/16 Unknown ABG Carboxyhemoglobin 1.8 % (0.0-5.0) 12/05/16 Unknown ABG Methemoglobin 0.6 % (0.0-1.5) 12/05/16 Unknown Oxyhemoglobin 94.5 % (95.0-99.0) L 12/05/16 Unknown FiO2 28 % 12/19/16 09:36 Sodium 139 mmol/L (137-145) 12/31/16 04:00 Potassium 4.1 mmol/L (3.6-5.0) 12/31/16 04:00 Chloride 100.6 mmol/L (98-107) 12/31/16 04:00 Carbon Dioxide 25 mmol/L (22-30) 01/01/17 05:00 Anion Gap 19 mmol/L 12/31/16 04:00 BUN 76 mg/dL (7-17) H 01/01/17 05:00 Creatinine 1.5 mg/dL (0.7-1.2) H 01/01/17 05:00 Estimated GFR 45 ml/min 01/01/17 05:00 BUN/Creatinine Ratio 51 % 01/01/17 05:00 Glucose 109 mg/dL (65-100) H 01/01/17 05:00 POC Glucose 129 (70-105) H 01/01/17 05:12 Osmolality 351 Mosm/kg 09/16/16 11:47 Lactic Acid 4.50 mmol/L (0.7-2.0) H* 09/28/16 07:25 Calcium 9.1 mg/dL (8.4-10.2) 01/01/17 05:00 Phosphorus 2.70 mg/dL (2.5-4.5) 01/01/17 05:00 Magnesium 2.10 mg/dL (1.7-2.3) 01/01/17 05:00 Total Bilirubin 0.50 mg/dL (0.1-1.2) 01/01/17 05:00 Direct Bilirubin 0.3 mg/dL (0-0.2) H 10/10/16 05:00 Indirect Bilirubin 0.1 mg/dL 10/10/16 05:00 AST 35 units/L (5-40) 01/01/17 05:00 ALT 51 units/L (7-56) 01/01/17 05:00 Alkaline Phosphatase 536 units/L (35-129) H 01/01/17 05:00 Ammonia 27.0 umol/L (25-60) 09/07/16 08:37 Lactate Dehydrogenase 196 units/L (91-180) H 11/11/16 06:59 Total Creatine Kinase 121 units/L (30-135) 09/29/16 20:12 CK-MB (CK-2) < 1.0 ng/mL (0.0-4.0) 09/29/16 20:12 CK-MB (CK-2) Rel Index 0.8 (0-4) 09/29/16 20:12 Troponin T 0.204 ng/mL (0.00-0.029) H* 09/29/16 20:12 C-Reactive Protein 19.30 mg/dL (0.00-1.30) H 12/05/16 05:00 Total Protein 6.3 g/dL (6.3-8.2) 01/01/17 05:00 Albumin 1.5 g/dL (3.9-5) L 01/01/17 05:00 Albumin/Globulin Ratio 0.3 % 01/01/17 05:00 Prealbumin 0.110 g/L (0.200-0.400) L 12/29/16 05:15 Triglycerides 137 mg/dL (2-149) 09/29/16 20:12 Cholesterol 31 mg/dL (50-199) L 09/29/16 20:12 LDL Cholesterol Direct 4 mg/dL (50-130) L 09/29/16 20:12 HDL Cholesterol 3 mg/dL (40-59) L 09/29/16 20:12 Cholesterol/HDL Ratio 10.33 % 09/29/16 20:12 Angiotensin Convert Enz See scanned report 09/08/16 11:48 Renin 0.99 ng/mL/h (0.25-5.82) 10/07/16 10:56 Aldosterone <1 ng/dL () 10/07/16 10:56 Aldosterone/Renin Dir see below 10/07/16 10:56 Serotonin Release Assay See scanned report 09/29/16 13:35 TSH 1.010 mlU/mL (0.270-4.200) 09/07/16 08:37 HCG, Qual Negative (Negative) 09/03/16 00:10 Urine Color Yellow (Yellow) 11/05/16 13:09 Urine Turbidity Clear (Clear) 11/05/16 13:09 Urine pH 9.0 (5.0-7.0) H 11/05/16 13:09 Ur Specific [place] 1.011 (1.003-1.030) 11/05/16 13:09 Urine Protein 100 mg/dl mg/dL (Negative) 11/05/16 13:09 Urine Glucose (UA) Neg mg/dL (Negative) 11/05/16 13:09 Urine Ketones Neg mg/dL (Negative) 11/05/16 13:09 Urine Blood Neg (Negative) 11/05/16 13:09 Urine Nitrite Neg (Negative) 11/05/16 13:09 Urine Bilirubin Neg (Negative) 11/05/16 13:09 Urine Urobilinogen < 2.0 mg/dL (<2.0) 11/05/16 13:09 Ur Leukocyte Esterase Neg (Negative) 11/05/16 13:09 Urine WBC (Auto) 4.0 /HPF (0.0-6.0) 11/05/16 13:09 Urine RBC (Auto) 1.0 /HPF (0.0-6.0) 11/05/16 13:09 U Epithel Cells (Auto) 1.0 /HPF (0-13.0) 10/07/16 18:30 Urine Bacteria (Auto) 4+ /HPF (Negative) 11/05/16 13:09 Urine WBC Clumps 2+ /HPF 09/07/16 02:47 Hyaline Casts 4 /LPF 09/07/16 02:47 Urine Mucus Few /HPF 10/07/16 18:30 Urine Yeast (Budding) 3+ /HPF 10/07/16 18:30 Urine Eosinophils None seen (None Seen) 09/07/16 16:00 Urine Total Volume 950 11/12/16 10:18 Urine Creatinine 19.7 mg/dL (0.1-20.0) 11/12/16 10:18 Height (in) 65.0 inches 11/12/16 10:18 Weight (lb) 181.0 lbs 11/12/16 10:18 Creatinine Clearance 5 11/12/16 10:18 Urine Sodium 36 mEq/L 09/16/16 19:19 Urine Total Protein 16 mg/dL (5-11.8) H 09/16/16 19:19 Fluid Total Protein < 3.0 (15.0-45.0) L 11/10/16 14:20 Fluid LDH 123 11/10/16 14:20 Vancomycin Trough 2.3 ug/mL (5.0-20.0) L 09/21/16 13:00 Random Vancomycin 16.5 ug/mL (0-40.0) 11/28/16 09:45 Urine Opiates Screen Presumptive negative 09/03/16 15:11 Urine Methadone Screen Presumptive positive 09/03/16 15:11 Ur Barbiturates Screen Presumptive positive 09/03/16 15:11 Ur Phencyclidine Scrn Presumptive negative 09/03/16 15:11 Ur Amphetamines Screen Presumptive negative 09/03/16 15:11 U Benzodiazepines Scrn Presumptive negative 09/03/16 15:11 Urine Cocaine Screen Presumptive negative 09/03/16 15:11 U Marijuana (THC) Screen Presumptive positive 09/03/16 15:11 Drugs of Abuse Note Disclamer 09/03/16 15:11 Rheumatoid Factor 24 IU/ml (0-13) H 09/08/16 11:48 SAHIL Screen Negative (Negative) 09/07/16 09:20 Proteinase 3 (PR3) Ab <1.0 AI (<1.0) 09/07/16 09:20 Myeloperoxidase Ab <1.0 AI (<1.0) 09/07/16 09:20 Sjogren's Antibody <1.0 AI (<1.0) 09/08/16 15:35 Scl-70 Scleroderma Ab <1.0 AI (<1.0) 09/08/16 15:35 Centromere B Antibody <1.0 AI (<1.0) 09/08/16 12:02 Heparin-induced Plt Ab Negative (Negative) 09/29/16 13:35 UF Heparin High Dose 11 % Release 09/29/16 13:35 SUDHIR UFH Low Dose 0.1 6 % Release 09/29/16 13:35 SUDHIR UFH Low Dose 0.5 8 % Release 09/29/16 13:35 Cardiolipid IgG Ab <14 GPL (<=14) 09/12/16 09:59 Cardiolipid IgA Ab <11 APL (<=11) 09/12/16 09:59 Cardiolipid IgM Ab <12 MPL (<=12) 09/12/16 09:59 Complement C3 148 mg/dL (90-180) 09/07/16 09:20 Complement C4 58 mg/dL (16-47) H 09/07/16 09:20 RPR Nonreactive (Nonreactive) 09/08/16 11:48 Hepatitis A IgM Ab Non-reactive (NonReactive) 09/24/16 14:40 Hep Bs Antigen Non-reactive (Negative) 09/24/16 14:40 Hep B Core IgM Ab Non-reactive (NonReactive) 09/24/16 14:40 Hepatitis C Antibody Non-reactive (NonReactive) 09/24/16 14:40 HIV 1&2 Antibody Rapid Non react (Non React) 09/08/16 11:48 HIV P24 Antigen Non react (Non React) 09/08/16 11:48 Miscellaneous Test Flexitest 1 H 11/05/16 13:25 Blood Type A POSITIVE 12/29/16 14:00 Antibody Screen Negative 12/29/16 14:00 DELORIS Antibody Screen Negative 11/24/16 11:20 Crossmatch See Detail 12/29/16 14:00
--- NOTE | 2017-01-01 15:39 | Progress Note ---
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 * Atrial fibrillation w/ RVR * Enteric fistula * Acute hypoxic respiratory failure * s/p Cardiac arrest * Hx of GI bleed * Left renal artery stenosis * Anemia * Hx of hypertension * s/p Candidemia Plan: * Continue HD MWF * UF as tolerated * Adjust K bath with dialysis * Dose medications for renal function * Avoid potential nephrotoxins * Rate control per cardiology * Vent management per pulm/CCM * Pressors prn for MAP>65 Subjective Date of service: 01/01/17 Principal diagnosis: Acute resp failure on MVS; S/P Acute CVA; Acute Encephalopathy; JUANITA Interval history: No acute events. Objective - Vital Signs Vital signs: Vital Signs - 12hr 01/01/17 01/01/17 01/01/17 03:45 03:48 04:00 Temperature 98.7 F Pulse Rate 101 H 101 H Pulse Rate [ Anterior Bilateral Throughout] Pulse Rate [ From Monitor] Respiratory 14 20 Rate Respiratory Rate [Anterior Bilateral Throughout] Blood Pressure 142/87 140/83 O2 Sat by Pulse 100 100 Oximetry O2 Sat by Pulse Oximetry [ Assessment] 01/01/17 01/01/17 01/01/17 04:15 04:19 04:21 Temperature Pulse Rate 102 H 103 H Pulse Rate [ 103 H Anterior Bilateral Throughout] Pulse Rate [ From Monitor] Respiratory 24 Rate Respiratory 18 Rate [Anterior Bilateral Throughout] Blood Pressure 139/80 139/80 O2 Sat by Pulse 100 100 Oximetry O2 Sat by Pulse Oximetry [ Assessment] 01/01/17 01/01/17 01/01/17 04:30 04:35 04:59 Temperature Pulse Rate 108 H Pulse Rate [ 109 H Anterior Bilateral Throughout] Pulse Rate [ From Monitor] Respiratory 12 Rate Respiratory 22 Rate [Anterior Bilateral Throughout] Blood Pressure 156/92 156/92 O2 Sat by Pulse 99 Oximetry O2 Sat by Pulse Oximetry [ Assessment] 01/01/17 01/01/17 01/01/17 05:01 05:15 05:30 Temperature Pulse Rate 109 H 110 H 109 H Pulse Rate [ Anterior Bilateral Throughout] Pulse Rate [ From Monitor] Respiratory 15 26 H 25 H Rate Respiratory Rate [Anterior Bilateral Throughout] Blood Pressure 156/92 154/91 166/101 O2 Sat by Pulse 99 99 Oximetry O2 Sat by Pulse Oximetry [ Assessment] 01/01/17 01/01/17 01/01/17 05:45 06:00 06:15 Temperature Pulse Rate 108 H 107 H 107 H Pulse Rate [ Anterior Bilateral Throughout] Pulse Rate [ From Monitor] Respiratory 24 22 23 Rate Respiratory Rate [Anterior Bilateral Throughout] Blood Pressure 160/96 158/97 149/92 O2 Sat by Pulse 100 100 99 Oximetry O2 Sat by Pulse Oximetry [ Assessment] 01/01/17 01/01/17 01/01/17 06:18 06:27 06:30 Temperature Pulse Rate 107 H 98 H 97 H Pulse Rate [ Anterior Bilateral Throughout] Pulse Rate [ From Monitor] Respiratory 26 H Rate Respiratory Rate [Anterior Bilateral Throughout] Blood Pressure 149/92 112/68 129/70 O2 Sat by Pulse 100 Oximetry O2 Sat by Pulse Oximetry [ Assessment] 01/01/17 01/01/17 01/01/17 06:45 07:00 07:15 Temperature Pulse Rate 94 H 93 H 93 H Pulse Rate [ Anterior Bilateral Throughout] Pulse Rate [ From Monitor] Respiratory 25 H 22 22 Rate Respiratory Rate [Anterior Bilateral Throughout] Blood Pressure 134/65 110/63 108/62 O2 Sat by Pulse 100 99 99 Oximetry O2 Sat by Pulse Oximetry [ Assessment] 01/01/17 01/01/17 01/01/17 07:30 07:45 07:48 Temperature Pulse Rate 93 H 92 H 91 H Pulse Rate [ 91 H Anterior Bilateral Throughout] Pulse Rate [ From Monitor] Respiratory 21 20 Rate Respiratory 19 Rate [Anterior Bilateral Throughout] Blood Pressure 107/61 102/60 102/60 O2 Sat by Pulse 99 99 99 Oximetry O2 Sat by Pulse Oximetry [ Assessment] 01/01/17 01/01/17 01/01/17 08:00 08:04 08:05 Temperature 97.5 F L Pulse Rate 96 H 95 H Pulse Rate [ 92 H Anterior Bilateral Throughout] Pulse Rate [ 96 H From Monitor] Respiratory 13 48 H Rate Respiratory 23 Rate [Anterior Bilateral Throughout] Blood Pressure 122/72 122/72 O2 Sat by Pulse 99 98 Oximetry O2 Sat by Pulse 99 Oximetry [ Assessment] 01/01/17 01/01/17 01/01/17 08:08 08:15 08:30 Temperature Pulse Rate 95 H 96 H 95 H Pulse Rate [ Anterior Bilateral Throughout] Pulse Rate [ From Monitor] Respiratory 25 H 23 Rate Respiratory Rate [Anterior Bilateral Throughout] Blood Pressure 122/72 116/69 114/66 O2 Sat by Pulse 100 100 100 Oximetry O2 Sat by Pulse Oximetry [ Assessment] 01/01/17 01/01/17 01/01/17 08:45 09:00 09:15 Temperature Pulse Rate 95 H 94 H 93 H Pulse Rate [ Anterior Bilateral Throughout] Pulse Rate [ From Monitor] Respiratory 22 28 H 24 Rate Respiratory Rate [Anterior Bilateral Throughout] Blood Pressure 120/69 100/64 107/60 O2 Sat by Pulse 100 100 100 Oximetry O2 Sat by Pulse Oximetry [ Assessment] 01/01/17 01/01/17 01/01/17 09:30 09:38 09:45 Temperature Pulse Rate 94 H 99 H 96 H Pulse Rate [ Anterior Bilateral Throughout] Pulse Rate [ From Monitor] Respiratory 20 23 Rate Respiratory Rate [Anterior Bilateral Throughout] Blood Pressure 113/67 113/67 118/67 O2 Sat by Pulse 100 100 Oximetry O2 Sat by Pulse Oximetry [ Assessment] 01/01/17 01/01/17 01/01/17 10:00 10:15 10:30 Temperature Pulse Rate 98 H 98 H 99 H Pulse Rate [ Anterior Bilateral Throughout] Pulse Rate [ From Monitor] Respiratory 23 23 21 Rate Respiratory Rate [Anterior Bilateral Throughout] Blood Pressure 121/70 122/74 122/74 O2 Sat by Pulse 100 100 100 Oximetry O2 Sat by Pulse Oximetry [ Assessment] 01/01/17 01/01/17 01/01/17 10:45 11:00 11:15 Temperature Pulse Rate 97 H 97 H 95 H Pulse Rate [ Anterior Bilateral Throughout] Pulse Rate [ From Monitor] Respiratory 23 22 18 Rate Respiratory Rate [Anterior Bilateral Throughout] Blood Pressure 114/68 122/68 111/65 O2 Sat by Pulse 100 100 100 Oximetry O2 Sat by Pulse Oximetry [ Assessment] 01/01/17 01/01/17 01/01/17 11:25 11:30 11:45 Temperature Pulse Rate 94 H 97 H 97 H Pulse Rate [ Anterior Bilateral Throughout] Pulse Rate [ From Monitor] Respiratory 26 H 26 H Rate Respiratory Rate [Anterior Bilateral Throughout] Blood Pressure 111/65 121/73 121/72 O2 Sat by Pulse 100 100 100 Oximetry O2 Sat by Pulse Oximetry [ Assessment] 01/01/17 01/01/17 01/01/17 12:00 12:15 12:30 Temperature 98.6 F Pulse Rate 101 H 105 H 105 H Pulse Rate [ Anterior Bilateral Throughout] Pulse Rate [ 101 H From Monitor] Respiratory 23 20 22 Rate Respiratory Rate [Anterior Bilateral Throughout] Blood Pressure 122/75 147/91 131/74 O2 Sat by Pulse 100 100 99 Oximetry O2 Sat by Pulse Oximetry [ Assessment] 01/01/17 01/01/17 01/01/17 12:45 13:00 13:01 Temperature Pulse Rate 104 H 102 H 101 H Pulse Rate [ Anterior Bilateral Throughout] Pulse Rate [ From Monitor] Respiratory 21 21 Rate Respiratory Rate [Anterior Bilateral Throughout] Blood Pressure 134/71 121/72 134/71 O2 Sat by Pulse 99 99 Oximetry O2 Sat by Pulse Oximetry [ Assessment] 01/01/17 01/01/17 01/01/17 13:15 13:30 13:45 Temperature Pulse Rate 99 H 90 86 Pulse Rate [ Anterior Bilateral Throughout] Pulse Rate [ From Monitor] Respiratory 20 16 18 Rate Respiratory Rate [Anterior Bilateral Throughout] Blood Pressure 125/74 117/71 118/68 O2 Sat by Pulse 99 99 99 Oximetry O2 Sat by Pulse Oximetry [ Assessment] 01/01/17 01/01/17 01/01/17 14:00 14:15 14:30 Temperature Pulse Rate 86 90 90 Pulse Rate [ Anterior Bilateral Throughout] Pulse Rate [ From Monitor] Respiratory 20 18 20 Rate Respiratory Rate [Anterior Bilateral Throughout] Blood Pressure 121/71 127/75 127/80 O2 Sat by Pulse 99 99 99 Oximetry O2 Sat by Pulse Oximetry [ Assessment] 01/01/17 01/01/17 01/01/17 14:45 15:00 15:15 Temperature Pulse Rate 92 H 93 H 93 H Pulse Rate [ Anterior Bilateral Throughout] Pulse Rate [ From Monitor] Respiratory 19 19 19 Rate Respiratory Rate [Anterior Bilateral Throughout] Blood Pressure 132/85 137/80 131/79 O2 Sat by Pulse 100 99 100 Oximetry O2 Sat by Pulse Oximetry [ Assessment] - General Appearance General appearance: intubated EENT: ATNC Neck: other (trach) Respiratory: Present: Other (coarse BS) Cardiology: regular, S1S2 Gastrointestinal: hypoactive bowel sounds Neurologic: other (does not follow commands) Musculoskeletal: other (+edema) - Lab 12/30/16 04:20 01/01/17 05:00 Most recent lab results ABG pH 7.450 pH Units (7.350-7.450) 12/05/16 Unknown ABG pCO2 29.6 mm Hg 12/05/16 Unknown ABG pO2 75.2 mm Hg (80.0-90.0) L 12/05/16 Unknown ABG HCO3 20.1 mmol/L (20.0-26.0) 12/05/16 Unknown ABG O2 Saturation 96.8 % (95.0-99.0) 12/05/16 Unknown Calcium 9.1 mg/dL (8.4-10.2) 01/01/17 05:00 Phosphorus 2.70 mg/dL (2.5-4.5) 01/01/17 05:00 Magnesium 2.10 mg/dL (1.7-2.3) 01/01/17 05:00 Urine Creatinine 19.7 mg/dL (0.1-20.0) 11/12/16 10:18 Urine Sodium 36 mEq/L 09/16/16 19:19 Urine Total Protein 16 mg/dL (5-11.8) H 09/16/16 19:19
[2017-01-01] MEDS ORDERED: TPN ADULT IV SCH (20:00)
[2017-01-02] MEDS: HumuLIN R SUB-Q SCH ×4 (00:11→17:40)
[2017-01-02] MEDS: DUONEB *Not for PRN Use IH SCH ×4 (02:04→19:38)
[2017-01-02] MEDS: REGLAN IV SCH ×4 (05:39→23:17)
[2017-01-02] MEDS: LOPRESSOR PO SCH ×5 (05:51→23:19)
[2017-01-02] MEDS: APRESOLINE PO SCH ×3 (05:54→23:30)
[2017-01-02 06:32] LABS: Calcium 9.5 mg/dL (8.4-10.2)
[2017-01-02] MEDS: ROBINUL PO SCH ×2 (09:22→23:30)
[2017-01-02] MEDS: CORDARONE PO SCH ×2 (09:23→23:25)
[2017-01-02] MEDS: NORVASC PO SCH (09:23)
[2017-01-02] MEDS: HEPARIN SUB-Q SCH ×2 (09:23→23:18)
[2017-01-02] MEDS: DAKIN'S HALF STRENGTH TP SCH ×2 (09:23→23:25)
[2017-01-02] MEDS: PROTONIX FEEDTUBE SCH (09:23)
--- NOTE | 2017-01-02 12:04 | Progress Note ---
Assessment and Plan Acute Hypoxemic Respiratory Failure (now with exacerbation and back on MVS) Hypertension (unable to receive p.o. meds) Atrial Fibrillation with RVR s/p tracheostomy Acute encephalopathy s/p CVA Oropharyngeal dysphagia Enterococcal bacteremia sepsis syndrome Sacral Decubitus Ulcer (s/p surgical debridement) Anemia Obesity JUANITA now on hemodialysis Enteric Fistula - continue HD/UF per nephrology; with CXR picture i will recommend continued UF sessions at least 3 x weekly - will get thoracentesis done as should aid weaning off the ventilator and getting to a lower level of care - continue fentanyl patch for pain issues especially s/p debridement - continue NGT to LIS and continue low dose reglan - continue wound care per WCT and RN's (s/p surgical debridement) - continue prn vasopressin if MAP falls < 60mmHg - prn CRP & lactate levels if clinically indicated (Follow WBC also) - keep on with daily PSV trials and / or T-piece as tolerated (repeat trial each shift if failed earlier shift) - continue TPN administration (NPO except for meds) - continue scopolamine for secretion control - continue to wean FiO2 for sats > 94% - continue bronchodilators and pulmonary toilet - VAP bundle addressed - continue prn IV metorolol - continue metoprolol and amlodipine (hold for hypotension) - continue to follow electrolytes and correct as necessary - continue GI & VTE prophylaxis - Continue flu & pneumovax per protocol - ethics consult placed .....she remains critically ill on life sustaining interventions including MVS and at risk for further deterioration including ....34' CCT today without overlap ....care plan discussed at length during team rounds ...long term care administrator prognosis remains guarded and this has intermittently been conveyed to family Subjective Date of service: 01/02/17 Principal diagnosis: Acute resp failure on MVS; S/P Acute CVA; Acute Encephalopathy; JUANITA Interval history: Patient is seen today for: Acute resp failure on MVS; S/P Acute CVA; Acute Encephalopathy; JUANITA Seen and examined at bedside; 24hour events reviewed; nursing and respiratory care staff consulted; no adverse overnight events reported to me; silvia remains critically ill and is not tolerating weaning well; she remains on dialysis but in my discussions with nephrology may be able to get by with 2 sessions weekly; encephalopathy is persistent and she is now deasling with multiple wounds including the recently debrided sacral decubitus ulcer. Objective Vital Signs - 12hr 01/02/17 01/02/17 01/02/17 00:15 00:30 00:44 Temperature Pulse Rate 93 H 93 H Pulse Rate [ Anterior Bilateral Throughout] Pulse Rate [ From Monitor] Pulse Rate [ Left Dorsalis Pedis] Pulse Rate [ Left Radial] Pulse Rate [ Right Dorsalis Pedis] Pulse Rate [ Right Radial] Respiratory 19 20 Rate Respiratory Rate [Anterior Bilateral Throughout] Blood Pressure 108/62 109/66 O2 Sat by Pulse 100 100 Oximetry O2 Sat by Pulse 100 Oximetry [ Assessment] 01/02/17 01/02/17 01/02/17 00:45 00:46 01:00 Temperature Pulse Rate 93 H 94 H 93 H Pulse Rate [ Anterior Bilateral Throughout] Pulse Rate [ From Monitor] Pulse Rate [ Left Dorsalis Pedis] Pulse Rate [ Left Radial] Pulse Rate [ Right Dorsalis Pedis] Pulse Rate [ Right Radial] Respiratory 19 19 Rate Respiratory Rate [Anterior Bilateral Throughout] Blood Pressure 113/69 113/69 112/67 O2 Sat by Pulse 100 100 100 Oximetry O2 Sat by Pulse Oximetry [ Assessment] 01/02/17 01/02/17 01/02/17 01:15 01:30 01:45 Temperature Pulse Rate 95 H 94 H 95 H Pulse Rate [ Anterior Bilateral Throughout] Pulse Rate [ From Monitor] Pulse Rate [ Left Dorsalis Pedis] Pulse Rate [ Left Radial] Pulse Rate [ Right Dorsalis Pedis] Pulse Rate [ Right Radial] Respiratory 20 18 20 Rate Respiratory Rate [Anterior Bilateral Throughout] Blood Pressure 120/67 114/68 115/67 O2 Sat by Pulse 100 100 100 Oximetry O2 Sat by Pulse Oximetry [ Assessment] 01/02/17 01/02/17 01/02/17 02:00 02:15 02:30 Temperature Pulse Rate 98 H 98 H 103 H Pulse Rate [ Anterior Bilateral Throughout] Pulse Rate [ From Monitor] Pulse Rate [ Left Dorsalis Pedis] Pulse Rate [ Left Radial] Pulse Rate [ Right Dorsalis Pedis] Pulse Rate [ Right Radial] Respiratory 13 24 29 H Rate Respiratory Rate [Anterior Bilateral Throughout] Blood Pressure 103/64 118/70 124/76 O2 Sat by Pulse 100 100 97 Oximetry O2 Sat by Pulse Oximetry [ Assessment] 01/02/17 01/02/17 01/02/17 02:45 03:00 03:03 Temperature Pulse Rate 102 H 104 H Pulse Rate [ Anterior Bilateral Throughout] Pulse Rate [ 102 H From Monitor] Pulse Rate [ 102 H Left Dorsalis Pedis] Pulse Rate [ 102 H Left Radial] Pulse Rate [ 102 H Right Dorsalis Pedis] Pulse Rate [ 102 H Right Radial] Respiratory 29 H 29 H 21 Rate Respiratory Rate [Anterior Bilateral Throughout] Blood Pressure 121/79 127/84 O2 Sat by Pulse 97 98 99 Oximetry O2 Sat by Pulse Oximetry [ Assessment] 01/02/17 01/02/17 01/02/17 03:15 03:30 03:45 Temperature Pulse Rate 102 H 101 H 100 H Pulse Rate [ Anterior Bilateral Throughout] Pulse Rate [ From Monitor] Pulse Rate [ Left Dorsalis Pedis] Pulse Rate [ Left Radial] Pulse Rate [ Right Dorsalis Pedis] Pulse Rate [ Right Radial] Respiratory 29 H 28 H 20 Rate Respiratory Rate [Anterior Bilateral Throughout] Blood Pressure 135/82 124/76 128/80 O2 Sat by Pulse 98 98 99 Oximetry O2 Sat by Pulse Oximetry [ Assessment] 01/02/17 01/02/17 01/02/17 04:00 04:15 04:25 Temperature 98.5 F Pulse Rate 99 H 99 H 101 H Pulse Rate [ Anterior Bilateral Throughout] Pulse Rate [ From Monitor] Pulse Rate [ Left Dorsalis Pedis] Pulse Rate [ Left Radial] Pulse Rate [ Right Dorsalis Pedis] Pulse Rate [ Right Radial] Respiratory 21 21 Rate Respiratory Rate [Anterior Bilateral Throughout] Blood Pressure 121/73 123/77 132/76 O2 Sat by Pulse 99 99 100 Oximetry O2 Sat by Pulse Oximetry [ Assessment] 01/02/17 01/02/17 01/02/17 04:30 04:45 05:00 Temperature Pulse Rate 103 H 103 H 103 H Pulse Rate [ Anterior Bilateral Throughout] Pulse Rate [ From Monitor] Pulse Rate [ Left Dorsalis Pedis] Pulse Rate [ Left Radial] Pulse Rate [ Right Dorsalis Pedis] Pulse Rate [ Right Radial] Respiratory 20 23 21 Rate Respiratory Rate [Anterior Bilateral Throughout] Blood Pressure 136/86 137/89 132/77 O2 Sat by Pulse 99 99 99 Oximetry O2 Sat by Pulse Oximetry [ Assessment] 01/02/17 01/02/17 01/02/17 05:15 05:30 05:45 Temperature Pulse Rate 104 H 107 H 103 H Pulse Rate [ Anterior Bilateral Throughout] Pulse Rate [ From Monitor] Pulse Rate [ Left Dorsalis Pedis] Pulse Rate [ Left Radial] Pulse Rate [ Right Dorsalis Pedis] Pulse Rate [ Right Radial] Respiratory 26 H 18 21 Rate Respiratory Rate [Anterior Bilateral Throughout] Blood Pressure 136/86 142/85 132/78 O2 Sat by Pulse 97 99 99 Oximetry O2 Sat by Pulse Oximetry [ Assessment] 01/02/17 01/02/17 01/02/17 05:51 06:00 06:15 Temperature Pulse Rate 108 H 97 H 91 H Pulse Rate [ Anterior Bilateral Throughout] Pulse Rate [ From Monitor] Pulse Rate [ Left Dorsalis Pedis] Pulse Rate [ Left Radial] Pulse Rate [ Right Dorsalis Pedis] Pulse Rate [ Right Radial] Respiratory 19 18 Rate Respiratory Rate [Anterior Bilateral Throughout] Blood Pressure 132/78 118/74 119/73 O2 Sat by Pulse 99 99 Oximetry O2 Sat by Pulse Oximetry [ Assessment] 01/02/17 01/02/17 01/02/17 06:30 06:45 07:00 Temperature Pulse Rate 91 H 90 91 H Pulse Rate [ Anterior Bilateral Throughout] Pulse Rate [ From Monitor] Pulse Rate [ Left Dorsalis Pedis] Pulse Rate [ Left Radial] Pulse Rate [ Right Dorsalis Pedis] Pulse Rate [ Right Radial] Respiratory 21 22 21 Rate Respiratory Rate [Anterior Bilateral Throughout] Blood Pressure 125/81 116/74 119/75 O2 Sat by Pulse 99 99 99 Oximetry O2 Sat by Pulse Oximetry [ Assessment] 01/02/17 01/02/17 01/02/17 07:15 07:30 07:45 Temperature Pulse Rate 91 H 96 H 95 H Pulse Rate [ Anterior Bilateral Throughout] Pulse Rate [ From Monitor] Pulse Rate [ Left Dorsalis Pedis] Pulse Rate [ Left Radial] Pulse Rate [ Right Dorsalis Pedis] Pulse Rate [ Right Radial] Respiratory 22 17 19 Rate Respiratory Rate [Anterior Bilateral Throughout] Blood Pressure 124/80 134/86 134/86 O2 Sat by Pulse 99 98 99 Oximetry O2 Sat by Pulse Oximetry [ Assessment] 01/02/17 01/02/17 01/02/17 07:53 08:00 08:15 Temperature 98.7 F Pulse Rate 94 H 93 H Pulse Rate [ Anterior Bilateral Throughout] Pulse Rate [ From Monitor] Pulse Rate [ Left Dorsalis Pedis] Pulse Rate [ Left Radial] Pulse Rate [ Right Dorsalis Pedis] Pulse Rate [ Right Radial] Respiratory 17 9 L Rate Respiratory Rate [Anterior Bilateral Throughout] Blood Pressure 129/76 129/76 O2 Sat by Pulse 99 99 Oximetry O2 Sat by Pulse Oximetry [ Assessment] 01/02/17 01/02/17 01/02/17 08:30 08:33 08:45 Temperature Pulse Rate 93 H 93 H 91 H Pulse Rate [ 96 H Anterior Bilateral Throughout] Pulse Rate [ From Monitor] Pulse Rate [ Left Dorsalis Pedis] Pulse Rate [ Left Radial] Pulse Rate [ Right Dorsalis Pedis] Pulse Rate [ Right Radial] Respiratory 16 15 Rate Respiratory 19 Rate [Anterior Bilateral Throughout] Blood Pressure 133/78 133/78 133/78 O2 Sat by Pulse 99 99 100 Oximetry O2 Sat by Pulse Oximetry [ Assessment] 01/02/17 01/02/17 01/02/17 08:57 09:00 09:15 Temperature Pulse Rate 98 H 100 H 98 H Pulse Rate [ 97 H Anterior Bilateral Throughout] Pulse Rate [ From Monitor] Pulse Rate [ Left Dorsalis Pedis] Pulse Rate [ Left Radial] Pulse Rate [ Right Dorsalis Pedis] Pulse Rate [ Right Radial] Respiratory 35 H 29 H 21 Rate Respiratory 20 Rate [Anterior Bilateral Throughout] Blood Pressure 143/85 143/85 143/85 O2 Sat by Pulse 98 98 98 Oximetry O2 Sat by Pulse 98 Oximetry [ Assessment] 01/02/17 01/02/17 01/02/17 09:23 09:30 09:45 Temperature Pulse Rate 100 H 98 H 106 H Pulse Rate [ Anterior Bilateral Throughout] Pulse Rate [ From Monitor] Pulse Rate [ Left Dorsalis Pedis] Pulse Rate [ Left Radial] Pulse Rate [ Right Dorsalis Pedis] Pulse Rate [ Right Radial] Respiratory 10 L 22 Rate Respiratory Rate [Anterior Bilateral Throughout] Blood Pressure 143/85 136/80 136/80 O2 Sat by Pulse 98 Oximetry O2 Sat by Pulse Oximetry [ Assessment] 01/02/17 01/02/17 01/02/17 10:00 10:04 10:10 Temperature 98.9 F Pulse Rate 102 H 103 H 103 H Pulse Rate [ Anterior Bilateral Throughout] Pulse Rate [ From Monitor] Pulse Rate [ Left Dorsalis Pedis] Pulse Rate [ Left Radial] Pulse Rate [ Right Dorsalis Pedis] Pulse Rate [ Right Radial] Respiratory 46 H 23 Rate Respiratory Rate [Anterior Bilateral Throughout] Blood Pressure 147/87 144/87 147/87 O2 Sat by Pulse 97 97 Oximetry O2 Sat by Pulse Oximetry [ Assessment] 01/02/17 01/02/17 01/02/17 10:15 10:23 10:30 Temperature Pulse Rate 102 H 101 H 102 H Pulse Rate [ Anterior Bilateral Throughout] Pulse Rate [ From Monitor] Pulse Rate [ Left Dorsalis Pedis] Pulse Rate [ Left Radial] Pulse Rate [ Right Dorsalis Pedis] Pulse Rate [ Right Radial] Respiratory 25 H 26 H Rate Respiratory Rate [Anterior Bilateral Throughout] Blood Pressure 137/80 137/80 127/78 O2 Sat by Pulse 97 97 Oximetry O2 Sat by Pulse Oximetry [ Assessment] 01/02/17 01/02/17 01/02/17 10:45 11:00 11:01 Temperature Pulse Rate 101 H 103 H 103 H Pulse Rate [ Anterior Bilateral Throughout] Pulse Rate [ From Monitor] Pulse Rate [ Left Dorsalis Pedis] Pulse Rate [ Left Radial] Pulse Rate [ Right Dorsalis Pedis] Pulse Rate [ Right Radial] Respiratory 24 17 Rate Respiratory Rate [Anterior Bilateral Throughout] Blood Pressure 105/64 105/68 105/68 O2 Sat by Pulse 97 98 Oximetry O2 Sat by Pulse Oximetry [ Assessment] 01/02/17 01/02/17 01/02/17 11:15 11:30 11:45 Temperature Pulse Rate 102 H 102 H 102 H Pulse Rate [ Anterior Bilateral Throughout] Pulse Rate [ From Monitor] Pulse Rate [ Left Dorsalis Pedis] Pulse Rate [ Left Radial] Pulse Rate [ Right Dorsalis Pedis] Pulse Rate [ Right Radial] Respiratory Rate Respiratory Rate [Anterior Bilateral Throughout] Blood Pressure 101/63 122/81 102/64 O2 Sat by Pulse Oximetry O2 Sat by Pulse Oximetry [ Assessment] Constitutional: appears uncomfortable, other (not tracking) Eyes: non-icteric, other (tracheostomy tube in midline of neck) ENT: oropharynx moist, oropharyngeal exudate pre Neck: supple, no lymphadenopathy, no JVD, other (no thyromegaly) Effort: mildly labored Ascultation: Bilateral: diminished breath sounds (bases), rhonchi (and referred upper airway sounds) Percussion: Bilateral: dull (bases) Cardiovascular: regular rate and rhythm, other (no rubs / murmurs) Gastrointestinal: hypoactive bowel sounds, soft, non-tender, non-distended, other (RLQ & LUQ stomas with colostomy bags) Integumentary: decubitus ulcer (sacral; stage 4 s/p surgical debridement), other (no rash; no cellulitis; poor turgor) Extremities: no cyanosis, pulses normal, no ischemia or petechiae, edema (1+ bilaterally) Neurologic: pupils equal and round, unable to assess, other (encephalopathic) Psychiatric: other (unable to assess) CBC and BMP: 01/03/17 05:00 01/03/17 05:00 ABG, PT/INR, D-dimer: ABG POC ABG pH 7.503 (7.35-7.45) H 12/19/16 09:36 ABG pH 7.450 pH Units (7.350-7.450) 12/05/16 Unknown POC ABG pCO2 30.1 (35-45) L 12/19/16 09:36 ABG pCO2 29.6 mm Hg 12/05/16 Unknown POC ABG pO2 85 (80-105) 12/19/16 09:36 ABG pO2 75.2 mm Hg (80.0-90.0) L 12/05/16 Unknown POC ABG HCO3 23.6 12/19/16 09:36 POC ABG Total CO2 25 12/19/16 09:36 POC ABG O2 Sat 97 12/19/16 09:36 ABG O2 Saturation 96.8 % (95.0-99.0) 12/05/16 Unknown PT/INR, D-dimer PT 16.1 Sec. (12.2-14.9) H 12/28/16 08:30 INR 1.23 (0.87-1.13) H 12/28/16 08:30 Abnormal lab findings: Abnormal Labs 09/03/16 09/03/16 09/03/16 12:12 15:07 16:20 WBC RBC Hgb Hct MCV MCH MCHC RDW Plt Count Lymph % (Auto) [place] % (Auto) Lymph # [place] # Baso # Seg Neutrophils % Seg Neuts % (Manual) Lymphocytes % (Manual) Monocytes % (Manual) Eosinophils % (Manual) Basophils % (Manual) Nucleated RBC % Seg Neutrophils # Seg Neutrophils # Man Lymphocytes # (Manual) Monocytes # (Manual) Eosinophils # (Manual) Basophils # (Manual) PT INR Fibrinogen dRVVT Confirm Interp Factor V Activity POC ABG pH 7.452 H POC ABG pCO2 POC ABG pO2 ABG pO2 ABG HCO3 ABG Base Excess ABG Hemoglobin Oxyhemoglobin Sodium Potassium Chloride Carbon Dioxide BUN Creatinine Glucose POC Glucose 178 H Lactic Acid Calcium Phosphorus 2.20 L Magnesium 1.60 L Direct Bilirubin AST ALT Alkaline Phosphatase Lactate Dehydrogenase Troponin T C-Reactive Protein Total Protein Albumin Prealbumin Triglycerides Cholesterol LDL Cholesterol Direct HDL Cholesterol Urine pH Urine WBC (Auto) Urine Creatinine Urine Total Protein Fluid Total Protein Vancomycin Trough Rheumatoid Factor Complement C4 Miscellaneous Test Crossmatch 09/03/16 09/03/16 09/03/16 17:57 17:58 23:50 WBC RBC Hgb Hct MCV MCH MCHC RDW Plt Count Lymph % (Auto) [place] % (Auto) Lymph # [place] # Baso # Seg Neutrophils % Seg Neuts % (Manual) Lymphocytes % (Manual) Monocytes % (Manual) Eosinophils % (Manual) Basophils % (Manual) Nucleated RBC % Seg Neutrophils # Seg Neutrophils # Man Lymphocytes # (Manual) Monocytes # (Manual) Eosinophils # (Manual) Basophils # (Manual) PT INR Fibrinogen dRVVT Confirm Interp Factor V Activity POC ABG pH POC ABG pCO2 POC ABG pO2 ABG pO2 ABG HCO3 ABG Base Excess ABG Hemoglobin Oxyhemoglobin Sodium Potassium Chloride Carbon Dioxide BUN Creatinine Glucose POC Glucose 162 H 145 H Lactic Acid Calcium Phosphorus 2.30 L Magnesium Direct Bilirubin AST ALT Alkaline Phosphatase Lactate Dehydrogenase Troponin T C-Reactive Protein Total Protein Albumin Prealbumin Triglycerides Cholesterol LDL Cholesterol Direct HDL Cholesterol Urine pH Urine WBC (Auto) Urine Creatinine Urine Total Protein Fluid Total Protein Vancomycin Trough Rheumatoid Factor Complement C4 Miscellaneous Test Crossmatch 09/04/16 09/04/16 09/04/16 03:31 03:31 05:42 WBC RBC Hgb 9.7 L D Hct MCV 72 L MCH 23 L MCHC RDW 17.5 H Plt Count Lymph % (Auto) 11.1 L [place] % (Auto) Lymph # [place] # Baso # Seg Neutrophils % 84.3 H Seg Neuts % (Manual) Lymphocytes % (Manual) Monocytes % (Manual) Eosinophils % (Manual) Basophils % (Manual) Nucleated RBC % Seg Neutrophils # 8.9 H Seg Neutrophils # Man Lymphocytes # (Manual) Monocytes # (Manual) Eosinophils # (Manual) Basophils # (Manual) PT INR Fibrinogen dRVVT Confirm Interp Factor V Activity POC ABG pH POC ABG pCO2 POC ABG pO2 ABG pO2 ABG HCO3 ABG Base Excess ABG Hemoglobin Oxyhemoglobin Sodium 135 L Potassium 2.9 L* Chloride 97.2 L Carbon Dioxide 19 L BUN Creatinine 1.7 H Glucose 170 H POC Glucose 152 H Lactic Acid Calcium Phosphorus Magnesium Direct Bilirubin AST ALT Alkaline Phosphatase Lactate Dehydrogenase Troponin T C-Reactive Protein Total Protein Albumin Prealbumin Triglycerides 160 H Cholesterol LDL Cholesterol Direct HDL Cholesterol 31 L Urine pH Urine WBC (Auto) Urine Creatinine Urine Total Protein Fluid Total Protein Vancomycin Trough Rheumatoid Factor Complement C4 Miscellaneous Test Crossmatch 09/04/16 09/04/16 09/04/16 11:34 17:46 23:29 WBC RBC Hgb Hct MCV MCH MCHC RDW Plt Count Lymph % (Auto) [place] % (Auto) Lymph # [place] # Baso # Seg Neutrophils % Seg Neuts % (Manual) Lymphocytes % (Manual) Monocytes % (Manual) Eosinophils % (Manual) Basophils % (Manual) Nucleated RBC % Seg Neutrophils # Seg Neutrophils # Man Lymphocytes # (Manual) Monocytes # (Manual) Eosinophils # (Manual) Basophils # (Manual) PT INR Fibrinogen dRVVT Confirm Interp Factor V Activity POC ABG pH POC ABG pCO2 POC ABG pO2 ABG pO2 ABG HCO3 ABG Base Excess ABG Hemoglobin Oxyhemoglobin Sodium Potassium Chloride Carbon Dioxide BUN Creatinine Glucose POC Glucose 165 H 210 H 139 H Lactic Acid Calcium Phosphorus Magnesium Direct Bilirubin AST ALT Alkaline Phosphatase Lactate Dehydrogenase Troponin T C-Reactive Protein Total Protein Albumin Prealbumin Triglycerides Cholesterol LDL Cholesterol Direct HDL Cholesterol Urine pH Urine WBC (Auto) Urine Creatinine Urine Total Protein Fluid Total Protein Vancomycin Trough Rheumatoid Factor Complement C4 Miscellaneous Test Crossmatch 09/05/16 09/05/16 09/05/16 04:05 04:05 05:38 WBC RBC Hgb Hct MCV 76 L D MCH 23 L MCHC RDW 17.8 H Plt Count Lymph % (Auto) [place] % (Auto) Lymph # [place] # Baso # Seg Neutrophils % Seg Neuts % (Manual) Lymphocytes % (Manual) Monocytes % (Manual) Eosinophils % (Manual) Basophils % (Manual) Nucleated RBC % Seg Neutrophils # Seg Neutrophils # Man Lymphocytes # (Manual) Monocytes # (Manual) Eosinophils # (Manual) Basophils # (Manual) PT INR Fibrinogen dRVVT Confirm Interp Factor V Activity POC ABG pH POC ABG pCO2 POC ABG pO2 ABG pO2 ABG HCO3 ABG Base Excess ABG Hemoglobin Oxyhemoglobin Sodium 134 L Potassium Chloride Carbon Dioxide 18 L BUN Creatinine 1.8 H Glucose 192 H POC Glucose 175 H Lactic Acid Calcium Phosphorus Magnesium Direct Bilirubin AST ALT Alkaline Phosphatase Lactate Dehydrogenase Troponin T C-Reactive Protein Total Protein Albumin Prealbumin Triglycerides Cholesterol LDL Cholesterol Direct HDL Cholesterol Urine pH Urine WBC (Auto) Urine Creatinine Urine Total Protein Fluid Total Protein Vancomycin Trough Rheumatoid Factor Complement C4 Miscellaneous Test Crossmatch 09/05/16 09/05/16 09/05/16 11:38 17:48 23:22 WBC RBC Hgb Hct MCV MCH MCHC RDW Plt Count Lymph % (Auto) [place] % (Auto) Lymph # [place] # Baso # Seg Neutrophils % Seg Neuts % (Manual) Lymphocytes % (Manual) Monocytes % (Manual) Eosinophils % (Manual) Basophils % (Manual) Nucleated RBC % Seg Neutrophils # Seg Neutrophils # Man Lymphocytes # (Manual) Monocytes # (Manual) Eosinophils # (Manual) Basophils # (Manual) PT INR Fibrinogen dRVVT Confirm Interp Factor V Activity POC ABG pH POC ABG pCO2 POC ABG pO2 ABG pO2 ABG HCO3 ABG Base Excess ABG Hemoglobin Oxyhemoglobin Sodium Potassium Chloride Carbon Dioxide BUN Creatinine Glucose POC Glucose 164 H 186 H 195 H Lactic Acid Calcium Phosphorus Magnesium Direct Bilirubin AST ALT Alkaline Phosphatase Lactate Dehydrogenase Troponin T C-Reactive Protein Total Protein Albumin Prealbumin Triglycerides Cholesterol LDL Cholesterol Direct HDL Cholesterol Urine pH Urine WBC (Auto) Urine Creatinine Urine Total Protein Fluid Total Protein Vancomycin Trough Rheumatoid Factor Complement C4 Miscellaneous Test Crossmatch 09/06/16 09/06/16 09/06/16 04:12 05:59 07:32 WBC RBC Hgb Hct MCV MCH MCHC RDW Plt Count Lymph % (Auto) [place] % (Auto) Lymph # [place] # Baso # Seg Neutrophils % Seg Neuts % (Manual) Lymphocytes % (Manual) Monocytes % (Manual) Eosinophils % (Manual) Basophils % (Manual) Nucleated RBC % Seg Neutrophils # Seg Neutrophils # Man Lymphocytes # (Manual) Monocytes # (Manual) Eosinophils # (Manual) Basophils # (Manual) PT INR Fibrinogen dRVVT Confirm Interp Factor V Activity POC ABG pH 7.514 H POC ABG pCO2 29.1 L POC ABG pO2 72 L ABG pO2 ABG HCO3 ABG Base Excess ABG Hemoglobin Oxyhemoglobin Sodium 133 L Potassium 3.4 L Chloride 94.9 L Carbon Dioxide 19 L BUN 30 H Creatinine 2.1 H Glucose 139 H POC Glucose 146 H Lactic Acid Calcium Phosphorus Magnesium Direct Bilirubin AST ALT Alkaline Phosphatase Lactate Dehydrogenase Troponin T C-Reactive Protein Total Protein Albumin Prealbumin Triglycerides Cholesterol LDL Cholesterol Direct HDL Cholesterol Urine pH Urine WBC (Auto) Urine Creatinine Urine Total Protein Fluid Total Protein Vancomycin Trough Rheumatoid Factor Complement C4 Miscellaneous Test Crossmatch 09/06/16 09/06/16 09/06/16 11:57 17:58 19:02 WBC RBC Hgb Hct MCV MCH MCHC RDW Plt Count Lymph % (Auto) [place] % (Auto) Lymph # [place] # Baso # Seg Neutrophils % Seg Neuts % (Manual) Lymphocytes % (Manual) Monocytes % (Manual) Eosinophils % (Manual) Basophils % (Manual) Nucleated RBC % Seg Neutrophils # Seg Neutrophils # Man Lymphocytes # (Manual) Monocytes # (Manual) Eosinophils # (Manual) Basophils # (Manual) PT INR Fibrinogen dRVVT Confirm Interp Factor V Activity POC ABG pH 7.465 H POC ABG pCO2 32.0 L POC ABG pO2 ABG pO2 ABG HCO3 ABG Base Excess ABG Hemoglobin Oxyhemoglobin Sodium Potassium Chloride Carbon Dioxide BUN Creatinine Glucose POC Glucose 165 H 160 H Lactic Acid Calcium Phosphorus Magnesium Direct Bilirubin AST ALT Alkaline Phosphatase Lactate Dehydrogenase Troponin T C-Reactive Protein Total Protein Albumin Prealbumin Triglycerides Cholesterol LDL Cholesterol Direct HDL Cholesterol Urine pH Urine WBC (Auto) Urine Creatinine Urine Total Protein Fluid Total Protein Vancomycin Trough Rheumatoid Factor Complement C4 Miscellaneous Test Crossmatch 09/06/16 09/07/16 09/07/16 23:45 02:47 02:47 WBC RBC Hgb Hct MCV MCH MCHC RDW Plt Count Lymph % (Auto) [place] % (Auto) Lymph # [place] # Baso # Seg Neutrophils % Seg Neuts % (Manual) Lymphocytes % (Manual) Monocytes % (Manual) Eosinophils % (Manual) Basophils % (Manual) Nucleated RBC % Seg Neutrophils # Seg Neutrophils # Man Lymphocytes # (Manual) Monocytes # (Manual) Eosinophils # (Manual) Basophils # (Manual) PT INR Fibrinogen dRVVT Confirm Interp Factor V Activity POC ABG pH POC ABG pCO2 POC ABG pO2 ABG pO2 ABG HCO3 ABG Base Excess ABG Hemoglobin Oxyhemoglobin Sodium Potassium Chloride Carbon Dioxide BUN Creatinine Glucose POC Glucose 204 H Lactic Acid Calcium Phosphorus Magnesium Direct Bilirubin AST ALT Alkaline Phosphatase Lactate Dehydrogenase Troponin T C-Reactive Protein Total Protein Albumin Prealbumin Triglycerides Cholesterol LDL Cholesterol Direct HDL Cholesterol Urine pH Urine WBC (Auto) 68.0 H Urine Creatinine 106.1 H Urine Total Protein Fluid Total Protein Vancomycin Trough Rheumatoid Factor Complement C4 Miscellaneous Test Crossmatch 09/07/16 09/07/16 09/07/16 04:50 06:19 06:39 WBC RBC Hgb Hct MCV MCH MCHC RDW Plt Count Lymph % (Auto) [place] % (Auto) Lymph # [place] # Baso # Seg Neutrophils % Seg Neuts % (Manual) Lymphocytes % (Manual) Monocytes % (Manual) Eosinophils % (Manual) Basophils % (Manual) Nucleated RBC % Seg Neutrophils # Seg Neutrophils # Man Lymphocytes # (Manual) Monocytes # (Manual) Eosinophils # (Manual) Basophils # (Manual) PT INR Fibrinogen dRVVT Confirm Interp Factor V Activity POC ABG pH 7.457 H POC ABG pCO2 32.1 L POC ABG pO2 76 L ABG pO2 ABG HCO3 ABG Base Excess ABG Hemoglobin Oxyhemoglobin Sodium 132 L Potassium Chloride 94.7 L Carbon Dioxide BUN 53 H Creatinine 2.9 H Glucose 151 H POC Glucose 149 H Lactic Acid Calcium Phosphorus Magnesium Direct Bilirubin AST ALT Alkaline Phosphatase Lactate Dehydrogenase Troponin T C-Reactive Protein Total Protein Albumin Prealbumin Triglycerides Cholesterol LDL Cholesterol Direct HDL Cholesterol Urine pH Urine WBC (Auto) Urine Creatinine Urine Total Protein Fluid Total Protein Vancomycin Trough Rheumatoid Factor Complement C4 Miscellaneous Test Crossmatch 09/07/16 09/07/16 09/07/16 09:20 11:43 11:43 WBC 19.4 H RBC Hgb 8.3 L Hct 26.4 L D MCV 72 L D MCH 22 L MCHC RDW 17.9 H Plt Count Lymph % (Auto) 8.5 L [place] % (Auto) Lymph # [place] # 1.0 H Baso # Seg Neutrophils % 85.8 H Seg Neuts % (Manual) Lymphocytes % (Manual) Monocytes % (Manual) Eosinophils % (Manual) Basophils % (Manual) Nucleated RBC % Seg Neutrophils # 16.6 H Seg Neutrophils # Man Lymphocytes # (Manual) Monocytes # (Manual) Eosinophils # (Manual) Basophils # (Manual) PT INR Fibrinogen dRVVT Confirm Interp Factor V Activity POC ABG pH POC ABG pCO2 POC ABG pO2 ABG pO2 ABG HCO3 ABG Base Excess ABG Hemoglobin Oxyhemoglobin Sodium 134 L Potassium Chloride 97.2 L Carbon Dioxide 20 L BUN 58 H Creatinine 2.9 H Glucose 147 H POC Glucose Lactic Acid Calcium Phosphorus 2.40 L Magnesium 2.40 H Direct Bilirubin AST ALT Alkaline Phosphatase Lactate Dehydrogenase Troponin T C-Reactive Protein Total Protein 5.8 L Albumin 2.2 L Prealbumin Triglycerides Cholesterol LDL Cholesterol Direct HDL Cholesterol Urine pH Urine WBC (Auto) Urine Creatinine Urine Total Protein Fluid Total Protein Vancomycin Trough Rheumatoid Factor Complement C4 58 H Miscellaneous Test Crossmatch 09/07/16 09/07/16 09/07/16 11:50 16:00 17:31 WBC RBC Hgb Hct MCV MCH MCHC RDW Plt Count Lymph % (Auto) [place] % (Auto) Lymph # [place] # Baso # Seg Neutrophils % Seg Neuts % (Manual) Lymphocytes % (Manual) Monocytes % (Manual) Eosinophils % (Manual) Basophils % (Manual) Nucleated RBC % Seg Neutrophils # Seg Neutrophils # Man Lymphocytes # (Manual) Monocytes # (Manual) Eosinophils # (Manual) Basophils # (Manual) PT INR Fibrinogen dRVVT Confirm Interp Factor V Activity POC ABG pH POC ABG pCO2 POC ABG pO2 158 H ABG pO2 ABG HCO3 ABG Base Excess ABG Hemoglobin Oxyhemoglobin Sodium Potassium Chloride Carbon Dioxide BUN Creatinine Glucose POC Glucose 175 H Lactic Acid Calcium Phosphorus Magnesium Direct Bilirubin AST ALT Alkaline Phosphatase Lactate Dehydrogenase Troponin T C-Reactive Protein Total Protein Albumin Prealbumin Triglycerides Cholesterol LDL Cholesterol Direct HDL Cholesterol Urine pH Urine WBC (Auto) Urine Creatinine 66.3 H Urine Total Protein Fluid Total Protein Vancomycin Trough Rheumatoid Factor Complement C4 Miscellaneous Test Crossmatch 09/07/16 09/08/16 09/08/16 23:50 05:46 06:18 WBC 17.8 H RBC 3.58 L Hgb 8.1 L Hct 25.5 L MCV 71 L MCH 23 L MCHC RDW 18.4 H Plt Count Lymph % (Auto) [place] % (Auto) Lymph # [place] # Baso # Seg Neutrophils % Seg Neuts % (Manual) 92.0 H Lymphocytes % (Manual) 6.0 L Monocytes % (Manual) Eosinophils % (Manual) Basophils % (Manual) Nucleated RBC % Seg Neutrophils # Seg Neutrophils # Man 16.4 H Lymphocytes # (Manual) 1.1 L Monocytes # (Manual) Eosinophils # (Manual) Basophils # (Manual) PT INR Fibrinogen dRVVT Confirm Interp Factor V Activity POC ABG pH POC ABG pCO2 34.3 L POC ABG pO2 71 L ABG pO2 ABG HCO3 ABG Base Excess ABG Hemoglobin Oxyhemoglobin Sodium Potassium Chloride Carbon Dioxide BUN Creatinine Glucose POC Glucose 216 H Lactic Acid Calcium Phosphorus Magnesium Direct Bilirubin AST ALT Alkaline Phosphatase Lactate Dehydrogenase Troponin T C-Reactive Protein Total Protein Albumin Prealbumin Triglycerides Cholesterol LDL Cholesterol Direct HDL Cholesterol Urine pH Urine WBC (Auto) Urine Creatinine Urine Total Protein Fluid Total Protein Vancomycin Trough Rheumatoid Factor Complement C4 Miscellaneous Test Crossmatch 09/08/16 09/08/16 09/08/16 06:18 06:51 10:55 WBC RBC Hgb Hct MCV MCH MCHC RDW Plt Count Lymph % (Auto) [place] % (Auto) Lymph # [place] # Baso # Seg Neutrophils % Seg Neuts % (Manual) Lymphocytes % (Manual) Monocytes % (Manual) Eosinophils % (Manual) Basophils % (Manual) Nucleated RBC % Seg Neutrophils # Seg Neutrophils # Man Lymphocytes # (Manual) Monocytes # (Manual) Eosinophils # (Manual) Basophils # (Manual) PT INR Fibrinogen dRVVT Confirm Interp Factor V Activity POC ABG pH POC ABG pCO2 POC ABG pO2 ABG pO2 ABG HCO3 ABG Base Excess ABG Hemoglobin Oxyhemoglobin Sodium 133 L Potassium Chloride 96.9 L Carbon Dioxide 20 L BUN 63 H Creatinine 2.7 H Glucose 195 H POC Glucose 204 H 169 H Lactic Acid Calcium Phosphorus Magnesium Direct Bilirubin AST ALT Alkaline Phosphatase Lactate Dehydrogenase Troponin T C-Reactive Protein Total Protein Albumin Prealbumin Triglycerides Cholesterol LDL Cholesterol Direct HDL Cholesterol Urine pH Urine WBC (Auto) Urine Creatinine Urine Total Protein Fluid Total Protein Vancomycin Trough Rheumatoid Factor Complement C4 Miscellaneous Test Crossmatch 09/08/16 09/08/16 09/08/16 11:48 11:48 11:48 WBC RBC Hgb Hct MCV MCH MCHC RDW Plt Count Lymph % (Auto) [place] % (Auto) Lymph # [place] # Baso # Seg Neutrophils % Seg Neuts % (Manual) Lymphocytes % (Manual) Monocytes % (Manual) Eosinophils % (Manual) Basophils % (Manual) Nucleated RBC % Seg Neutrophils # Seg Neutrophils # Man Lymphocytes # (Manual) Monocytes # (Manual) Eosinophils # (Manual) Basophils # (Manual) PT INR Fibrinogen 750 H dRVVT Confirm Interp Factor V Activity POC ABG pH POC ABG pCO2 POC ABG pO2 ABG pO2 ABG HCO3 ABG Base Excess ABG Hemoglobin Oxyhemoglobin Sodium Potassium Chloride Carbon Dioxide BUN Creatinine Glucose POC Glucose Lactic Acid Calcium Phosphorus Magnesium Direct Bilirubin AST ALT Alkaline Phosphatase Lactate Dehydrogenase Troponin T C-Reactive Protein 15.70 H Total Protein Albumin Prealbumin Triglycerides Cholesterol LDL Cholesterol Direct HDL Cholesterol Urine pH Urine WBC (Auto) Urine Creatinine Urine Total Protein Fluid Total Protein Vancomycin Trough Rheumatoid Factor 24 H Complement C4 Miscellaneous Test Crossmatch 09/08/16 09/08/16 09/09/16 15:35 18:25 00:24 WBC RBC Hgb Hct MCV MCH MCHC RDW Plt Count Lymph % (Auto) [place] % (Auto) Lymph # [place] # Baso # Seg Neutrophils % Seg Neuts % (Manual) Lymphocytes % (Manual) Monocytes % (Manual) Eosinophils % (Manual) Basophils % (Manual) Nucleated RBC % Seg Neutrophils # Seg Neutrophils # Man Lymphocytes # (Manual) Monocytes # (Manual) Eosinophils # (Manual) Basophils # (Manual) PT INR Fibrinogen dRVVT Confirm Interp Factor V Activity 182 H POC ABG pH POC ABG pCO2 POC ABG pO2 ABG pO2 ABG HCO3 ABG Base Excess ABG Hemoglobin Oxyhemoglobin Sodium Potassium Chloride Carbon Dioxide BUN Creatinine Glucose POC Glucose 184 H 216 H Lactic Acid Calcium Phosphorus Magnesium Direct Bilirubin AST ALT Alkaline Phosphatase Lactate Dehydrogenase Troponin T C-Reactive Protein Total Protein Albumin Prealbumin Triglycerides Cholesterol LDL Cholesterol Direct HDL Cholesterol Urine pH Urine WBC (Auto) Urine Creatinine Urine Total Protein Fluid Total Protein Vancomycin Trough Rheumatoid Factor Complement C4 Miscellaneous Test Crossmatch 09/09/16 09/09/16 09/09/16 03:00 03:00 04:04 WBC 27.9 H RBC Hgb 8.7 L Hct 28.1 L MCV 72 L MCH 22 L MCHC RDW 18.4 H Plt Count 485 H Lymph % (Auto) [place] % (Auto) Lymph # [place] # Baso # Seg Neutrophils % Seg Neuts % (Manual) 77.0 H Lymphocytes % (Manual) 9.0 L Monocytes % (Manual) Eosinophils % (Manual) Basophils % (Manual) Nucleated RBC % Seg Neutrophils # Seg Neutrophils # Man 21.5 H Lymphocytes # (Manual) Monocytes # (Manual) 2.0 H Eosinophils # (Manual) Basophils # (Manual) PT INR Fibrinogen dRVVT Confirm Interp Factor V Activity POC ABG pH POC ABG pCO2 POC ABG pO2 121 H ABG pO2 ABG HCO3 ABG Base Excess ABG Hemoglobin Oxyhemoglobin Sodium 135 L Potassium Chloride 96.3 L Carbon Dioxide 21 L BUN 83 H Creatinine 3.0 H Glucose 135 H POC Glucose Lactic Acid Calcium Phosphorus Magnesium Direct Bilirubin AST ALT Alkaline Phosphatase Lactate Dehydrogenase Troponin T C-Reactive Protein Total Protein Albumin Prealbumin Triglycerides Cholesterol LDL Cholesterol Direct HDL Cholesterol Urine pH Urine WBC (Auto) Urine Creatinine Urine Total Protein Fluid Total Protein Vancomycin Trough Rheumatoid Factor Complement C4 Miscellaneous Test Crossmatch 09/09/16 09/09/16 09/09/16 05:41 11:55 14:13 WBC RBC Hgb Hct MCV MCH MCHC RDW Plt Count Lymph % (Auto) [place] % (Auto) Lymph # [place] # Baso # Seg Neutrophils % Seg Neuts % (Manual) Lymphocytes % (Manual) Monocytes % (Manual) Eosinophils % (Manual) Basophils % (Manual) Nucleated RBC % Seg Neutrophils # Seg Neutrophils # Man Lymphocytes # (Manual) Monocytes # (Manual) Eosinophils # (Manual) Basophils # (Manual) PT INR Fibrinogen dRVVT Confirm Interp Factor V Activity POC ABG pH POC ABG pCO2 POC ABG pO2 ABG pO2 ABG HCO3 ABG Base Excess ABG Hemoglobin Oxyhemoglobin Sodium Potassium Chloride Carbon Dioxide BUN Creatinine Glucose POC Glucose 155 H 186 H Lactic Acid Calcium Phosphorus Magnesium Direct Bilirubin AST ALT Alkaline Phosphatase Lactate Dehydrogenase Troponin T C-Reactive Protein Total Protein Albumin Prealbumin Triglycerides Cholesterol LDL Cholesterol Direct HDL Cholesterol Urine pH Urine WBC (Auto) 25.0 H Urine Creatinine Urine Total Protein Fluid Total Protein Vancomycin Trough Rheumatoid Factor Complement C4 Miscellaneous Test Crossmatch 09/09/16 09/09/16 09/10/16 17:33 23:13 05:09 WBC RBC Hgb Hct MCV MCH MCHC RDW Plt Count Lymph % (Auto) [place] % (Auto) Lymph # [place] # Baso # Seg Neutrophils % Seg Neuts % (Manual) Lymphocytes % (Manual) Monocytes % (Manual) Eosinophils % (Manual) Basophils % (Manual) Nucleated RBC % Seg Neutrophils # Seg Neutrophils # Man Lymphocytes # (Manual) Monocytes # (Manual) Eosinophils # (Manual) Basophils # (Manual) PT INR Fibrinogen dRVVT Confirm Interp Factor V Activity POC ABG pH POC ABG pCO2 POC ABG pO2 74 L ABG pO2 ABG HCO3 ABG Base Excess ABG Hemoglobin Oxyhemoglobin Sodium Potassium Chloride Carbon Dioxide BUN Creatinine Glucose POC Glucose 211 H 215 H Lactic Acid Calcium Phosphorus Magnesium Direct Bilirubin AST ALT Alkaline Phosphatase Lactate Dehydrogenase Troponin T C-Reactive Protein Total Protein Albumin Prealbumin Triglycerides Cholesterol LDL Cholesterol Direct HDL Cholesterol Urine pH Urine WBC (Auto) Urine Creatinine Urine Total Protein Fluid Total Protein Vancomycin Trough Rheumatoid Factor Complement C4 Miscellaneous Test Crossmatch 09/10/16 09/10/16 09/10/16 05:17 05:17 11:31 WBC 15.8 H RBC 3.25 L Hgb 7.3 L Hct 22.9 L MCV 71 L MCH 23 L MCHC RDW 18.4 H Plt Count Lymph % (Auto) [place] % (Auto) Lymph # [place] # Baso # Seg Neutrophils % Seg Neuts % (Manual) 91.0 H Lymphocytes % (Manual) 4.0 L Monocytes % (Manual) Eosinophils % (Manual) Basophils % (Manual) Nucleated RBC % Seg Neutrophils # Seg Neutrophils # Man 14.4 H Lymphocytes # (Manual) 0.6 L Monocytes # (Manual) Eosinophils # (Manual) Basophils # (Manual) PT INR Fibrinogen dRVVT Confirm Interp Factor V Activity POC ABG pH POC ABG pCO2 POC ABG pO2 ABG pO2 ABG HCO3 ABG Base Excess ABG Hemoglobin Oxyhemoglobin Sodium Potassium Chloride Carbon Dioxide 21 L BUN 93 H Creatinine 2.9 H Glucose 146 H POC Glucose 188 H Lactic Acid Calcium 8.1 L Phosphorus Magnesium Direct Bilirubin AST ALT Alkaline Phosphatase Lactate Dehydrogenase Troponin T C-Reactive Protein Total Protein Albumin Prealbumin Triglycerides Cholesterol LDL Cholesterol Direct HDL Cholesterol Urine pH Urine WBC (Auto) Urine Creatinine Urine Total Protein Fluid Total Protein Vancomycin Trough Rheumatoid Factor Complement C4 Miscellaneous Test Crossmatch 09/10/16 09/10/16 09/10/16 13:17 17:20 23:32 WBC RBC Hgb Hct MCV MCH MCHC RDW Plt Count Lymph % (Auto) [place] % (Auto) Lymph # [place] # Baso # Seg Neutrophils % Seg Neuts % (Manual) Lymphocytes % (Manual) Monocytes % (Manual) Eosinophils % (Manual) Basophils % (Manual) Nucleated RBC % Seg Neutrophils # Seg Neutrophils # Man Lymphocytes # (Manual) Monocytes # (Manual) Eosinophils # (Manual) Basophils # (Manual) PT INR Fibrinogen dRVVT Confirm Interp Factor V Activity POC ABG pH POC ABG pCO2 POC ABG pO2 ABG pO2 ABG HCO3 ABG Base Excess ABG Hemoglobin Oxyhemoglobin Sodium Potassium Chloride Carbon Dioxide BUN Creatinine Glucose POC Glucose 199 H 186 H Lactic Acid Calcium Phosphorus Magnesium Direct Bilirubin AST ALT Alkaline Phosphatase Lactate Dehydrogenase Troponin T C-Reactive Protein Total Protein Albumin Prealbumin Triglycerides Cholesterol LDL Cholesterol Direct HDL Cholesterol Urine pH Urine WBC (Auto) Urine Creatinine Urine Total Protein Fluid Total Protein Vancomycin Trough Rheumatoid Factor Complement C4 Miscellaneous Test Crossmatch See Detail 09/11/16 09/11/16 09/11/16 05:10 05:10 05:17 WBC 28.4 H RBC Hgb 9.2 L Hct 29.3 L D MCV 73 L MCH 23 L MCHC RDW 18.9 H Plt Count 452 H Lymph % (Auto) [place] % (Auto) Lymph # [place] # Baso # Seg Neutrophils % Seg Neuts % (Manual) 89.5 H Lymphocytes % (Manual) 2.0 L Monocytes % (Manual) Eosinophils % (Manual) Basophils % (Manual) Nucleated RBC % Seg Neutrophils # Seg Neutrophils # Man 25.4 H Lymphocytes # (Manual) 0.6 L Monocytes # (Manual) 1.3 H Eosinophils # (Manual) Basophils # (Manual) PT INR Fibrinogen dRVVT Confirm Interp Factor V Activity POC ABG pH POC ABG pCO2 POC ABG pO2 ABG pO2 ABG HCO3 ABG Base Excess ABG Hemoglobin Oxyhemoglobin Sodium 136 L Potassium Chloride Carbon Dioxide 18 L BUN 107 H Creatinine 2.6 H Glucose 187 H POC Glucose 230 H Lactic Acid Calcium 8.3 L Phosphorus Magnesium Direct Bilirubin AST ALT Alkaline Phosphatase Lactate Dehydrogenase Troponin T C-Reactive Protein Total Protein Albumin Prealbumin Triglycerides Cholesterol LDL Cholesterol Direct HDL Cholesterol Urine pH Urine WBC (Auto) Urine Creatinine Urine Total Protein Fluid Total Protein Vancomycin Trough Rheumatoid Factor Complement C4 Miscellaneous Test Crossmatch 09/11/16 09/11/16 09/11/16 05:55 12:02 17:32 WBC RBC Hgb Hct MCV MCH MCHC RDW Plt Count Lymph % (Auto) [place] % (Auto) Lymph # [place] # Baso # Seg Neutrophils % Seg Neuts % (Manual) Lymphocytes % (Manual) Monocytes % (Manual) Eosinophils % (Manual) Basophils % (Manual) Nucleated RBC % Seg Neutrophils # Seg Neutrophils # Man Lymphocytes # (Manual) Monocytes # (Manual) Eosinophils # (Manual) Basophils # (Manual) PT INR Fibrinogen dRVVT Confirm Interp Factor V Activity POC ABG pH POC ABG pCO2 33.8 L POC ABG pO2 ABG pO2 ABG HCO3 ABG Base Excess ABG Hemoglobin Oxyhemoglobin Sodium Potassium Chloride Carbon Dioxide BUN Creatinine Glucose POC Glucose 191 H 239 H Lactic Acid Calcium Phosphorus Magnesium Direct Bilirubin AST ALT Alkaline Phosphatase Lactate Dehydrogenase Troponin T C-Reactive Protein Total Protein Albumin Prealbumin Triglycerides Cholesterol LDL Cholesterol Direct HDL Cholesterol Urine pH Urine WBC (Auto) Urine Creatinine Urine Total Protein Fluid Total Protein Vancomycin Trough Rheumatoid Factor Complement C4 Miscellaneous Test Crossmatch 09/11/16 09/12/16 09/12/16 23:52 05:09 05:32 WBC RBC Hgb Hct MCV MCH MCHC RDW Plt Count Lymph % (Auto) [place] % (Auto) Lymph # [place] # Baso # Seg Neutrophils % Seg Neuts % (Manual) Lymphocytes % (Manual) Monocytes % (Manual) Eosinophils % (Manual) Basophils % (Manual) Nucleated RBC % Seg Neutrophils # Seg Neutrophils # Man Lymphocytes # (Manual) Monocytes # (Manual) Eosinophils # (Manual) Basophils # (Manual) PT INR Fibrinogen dRVVT Confirm Interp Factor V Activity POC ABG pH POC ABG pCO2 34.6 L POC ABG pO2 ABG pO2 ABG HCO3 ABG Base Excess ABG Hemoglobin Oxyhemoglobin Sodium Potassium Chloride Carbon Dioxide BUN Creatinine Glucose POC Glucose 265 H 184 H Lactic Acid Calcium Phosphorus Magnesium Direct Bilirubin AST ALT Alkaline Phosphatase Lactate Dehydrogenase Troponin T C-Reactive Protein Total Protein Albumin Prealbumin Triglycerides Cholesterol LDL Cholesterol Direct HDL Cholesterol Urine pH Urine WBC (Auto) Urine Creatinine Urine Total Protein Fluid Total Protein Vancomycin Trough Rheumatoid Factor Complement C4 Miscellaneous Test Crossmatch 09/12/16 09/12/16 09/12/16 06:45 06:45 07:22 WBC 31.7 H RBC 3.54 L Hgb 8.3 L Hct 25.9 L MCV 73 L MCH 23 L MCHC RDW 18.9 H Plt Count Lymph % (Auto) [place] % (Auto) Lymph # [place] # Baso # Seg Neutrophils % Seg Neuts % (Manual) 88.5 H Lymphocytes % (Manual) 4.5 L Monocytes % (Manual) Eosinophils % (Manual) Basophils % (Manual) Nucleated RBC % Seg Neutrophils # Seg Neutrophils # Man 28.1 H Lymphocytes # (Manual) Monocytes # (Manual) 1.0 H Eosinophils # (Manual) Basophils # (Manual) PT INR Fibrinogen dRVVT Confirm Interp Factor V Activity POC ABG pH POC ABG pCO2 POC ABG pO2 ABG pO2 ABG HCO3 ABG Base Excess ABG Hemoglobin Oxyhemoglobin Sodium Potassium Chloride Carbon Dioxide 20 L BUN 115 H Creatinine 2.7 H Glucose 165 H POC Glucose Lactic Acid Calcium 8.0 L Phosphorus Magnesium Direct Bilirubin AST ALT Alkaline Phosphatase Lactate Dehydrogenase Troponin T C-Reactive Protein Total Protein Albumin Prealbumin Triglycerides 217 H Cholesterol LDL Cholesterol Direct HDL Cholesterol Urine pH Urine WBC (Auto) Urine Creatinine Urine Total Protein Fluid Total Protein Vancomycin Trough Rheumatoid Factor Complement C4 Miscellaneous Test Crossmatch 09/12/16 09/12/16 09/12/16 07:22 09:59 12:21 WBC RBC Hgb Hct MCV MCH MCHC RDW Plt Count Lymph % (Auto) [place] % (Auto) Lymph # [place] # Baso # Seg Neutrophils % Seg Neuts % (Manual) Lymphocytes % (Manual) Monocytes % (Manual) Eosinophils % (Manual) Basophils % (Manual) Nucleated RBC % Seg Neutrophils # Seg Neutrophils # Man Lymphocytes # (Manual) Monocytes # (Manual) Eosinophils # (Manual) Basophils # (Manual) PT INR Fibrinogen dRVVT Confirm Interp Positive H Factor V Activity POC ABG pH POC ABG pCO2 POC ABG pO2 ABG pO2 ABG HCO3 ABG Base Excess ABG Hemoglobin Oxyhemoglobin Sodium Potassium Chloride Carbon Dioxide BUN Creatinine Glucose POC Glucose 224 H Lactic Acid Calcium Phosphorus Magnesium Direct Bilirubin AST ALT Alkaline Phosphatase Lactate Dehydrogenase Troponin T C-Reactive Protein 1.70 H Total Protein Albumin Prealbumin Triglycerides Cholesterol LDL Cholesterol Direct HDL Cholesterol Urine pH Urine WBC (Auto) Urine Creatinine Urine Total Protein Fluid Total Protein Vancomycin Trough Rheumatoid Factor Complement C4 Miscellaneous Test Crossmatch 09/12/16 09/12/16 09/13/16 16:51 23:28 04:00 WBC 45.0 H* RBC Hgb 9.4 L Hct MCV 75 L MCH 23 L MCHC RDW 19.0 H Plt Count 470 H Lymph % (Auto) [place] % (Auto) Lymph # [place] # Baso # Seg Neutrophils % Seg Neuts % (Manual) 89.0 H Lymphocytes % (Manual) 5.0 L Monocytes % (Manual) Eosinophils % (Manual) Basophils % (Manual) Nucleated RBC % Seg Neutrophils # Seg Neutrophils # Man 40.1 H Lymphocytes # (Manual) Monocytes # (Manual) Eosinophils # (Manual) Basophils # (Manual) PT INR Fibrinogen dRVVT Confirm Interp Factor V Activity POC ABG pH POC ABG pCO2 POC ABG pO2 ABG pO2 ABG HCO3 ABG Base Excess ABG Hemoglobin Oxyhemoglobin Sodium Potassium Chloride Carbon Dioxide BUN Creatinine Glucose POC Glucose 169 H 150 H Lactic Acid Calcium Phosphorus Magnesium Direct Bilirubin AST ALT Alkaline Phosphatase Lactate Dehydrogenase Troponin T C-Reactive Protein Total Protein Albumin Prealbumin Triglycerides Cholesterol LDL Cholesterol Direct HDL Cholesterol Urine pH Urine WBC (Auto) Urine Creatinine Urine Total Protein Fluid Total Protein Vancomycin Trough Rheumatoid Factor Complement C4 Miscellaneous Test Crossmatch 09/13/16 09/13/16 09/13/16 04:00 11:26 17:31 WBC RBC Hgb Hct MCV MCH MCHC RDW Plt Count Lymph % (Auto) [place] % (Auto) Lymph # [place] # Baso # Seg Neutrophils % Seg Neuts % (Manual) Lymphocytes % (Manual) Monocytes % (Manual) Eosinophils % (Manual) Basophils % (Manual) Nucleated RBC % Seg Neutrophils # Seg Neutrophils # Man Lymphocytes # (Manual) Monocytes # (Manual) Eosinophils # (Manual) Basophils # (Manual) PT INR Fibrinogen dRVVT Confirm Interp Factor V Activity POC ABG pH POC ABG pCO2 POC ABG pO2 ABG pO2 ABG HCO3 ABG Base Excess ABG Hemoglobin Oxyhemoglobin Sodium Potassium Chloride Carbon Dioxide 20 L BUN 116 H Creatinine 3.0 H Glucose 172 H POC Glucose 140 H 183 H Lactic Acid Calcium Phosphorus Magnesium Direct Bilirubin AST ALT Alkaline Phosphatase Lactate Dehydrogenase Troponin T C-Reactive Protein Total Protein 6.2 L Albumin 2.9 L Prealbumin Triglycerides Cholesterol LDL Cholesterol Direct HDL Cholesterol Urine pH Urine WBC (Auto) Urine Creatinine Urine Total Protein Fluid Total Protein Vancomycin Trough Rheumatoid Factor Complement C4 Miscellaneous Test Crossmatch 09/13/16 09/14/16 09/14/16 23:23 04:06 04:07 WBC 29.4 H RBC Hgb 8.9 L Hct 27.3 L MCV 75 L MCH 24 L MCHC RDW 19.1 H Plt Count Lymph % (Auto) [place] % (Auto) Lymph # [place] # Baso # Seg Neutrophils % Seg Neuts % (Manual) 84.0 H Lymphocytes % (Manual) 6.0 L Monocytes % (Manual) 9.0 H Eosinophils % (Manual) Basophils % (Manual) Nucleated RBC % Seg Neutrophils # Seg Neutrophils # Man 24.7 H Lymphocytes # (Manual) Monocytes # (Manual) 2.6 H Eosinophils # (Manual) Basophils # (Manual) PT INR Fibrinogen dRVVT Confirm Interp Factor V Activity POC ABG pH 7.342 L POC ABG pCO2 POC ABG pO2 116 H ABG pO2 ABG HCO3 ABG Base Excess ABG Hemoglobin Oxyhemoglobin Sodium Potassium Chloride Carbon Dioxide BUN Creatinine Glucose POC Glucose 154 H Lactic Acid Calcium Phosphorus Magnesium Direct Bilirubin AST ALT Alkaline Phosphatase Lactate Dehydrogenase Troponin T C-Reactive Protein Total Protein Albumin Prealbumin Triglycerides Cholesterol LDL Cholesterol Direct HDL Cholesterol Urine pH Urine WBC (Auto) Urine Creatinine Urine Total Protein Fluid Total Protein Vancomycin Trough Rheumatoid Factor Complement C4 Miscellaneous Test Crossmatch 09/14/16 09/14/16 09/14/16 04:07 05:29 12:19 WBC RBC Hgb Hct MCV MCH MCHC RDW Plt Count Lymph % (Auto) [place] % (Auto) Lymph # [place] # Baso # Seg Neutrophils % Seg Neuts % (Manual) Lymphocytes % (Manual) Monocytes % (Manual) Eosinophils % (Manual) Basophils % (Manual) Nucleated RBC % Seg Neutrophils # Seg Neutrophils # Man Lymphocytes # (Manual) Monocytes # (Manual) Eosinophils # (Manual) Basophils # (Manual) PT INR Fibrinogen dRVVT Confirm Interp Factor V Activity POC ABG pH POC ABG pCO2 POC ABG pO2 ABG pO2 ABG HCO3 ABG Base Excess ABG Hemoglobin Oxyhemoglobin Sodium 136 L Potassium Chloride Carbon Dioxide 18 L BUN 121 H Creatinine 2.8 H Glucose 214 H POC Glucose 239 H 181 H Lactic Acid Calcium Phosphorus Magnesium Direct Bilirubin AST ALT Alkaline Phosphatase Lactate Dehydrogenase Troponin T C-Reactive Protein Total Protein Albumin Prealbumin Triglycerides Cholesterol LDL Cholesterol Direct HDL Cholesterol Urine pH Urine WBC (Auto) Urine Creatinine Urine Total Protein Fluid Total Protein Vancomycin Trough Rheumatoid Factor Complement C4 Miscellaneous Test Crossmatch 09/14/16 09/14/16 09/15/16 18:12 23:37 05:00 WBC 26.1 H RBC 3.05 L Hgb 7.2 L Hct 22.9 L MCV 75 L MCH 24 L MCHC RDW 19.0 H Plt Count Lymph % (Auto) [place] % (Auto) Lymph # [place] # Baso # Seg Neutrophils % Seg Neuts % (Manual) Lymphocytes % (Manual) Monocytes % (Manual) Eosinophils % (Manual) Basophils % (Manual) Nucleated RBC % Seg Neutrophils # Seg Neutrophils # Man Lymphocytes # (Manual) Monocytes # (Manual) Eosinophils # (Manual) Basophils # (Manual) PT INR Fibrinogen dRVVT Confirm Interp Factor V Activity POC ABG pH POC ABG pCO2 POC ABG pO2 ABG pO2 ABG HCO3 ABG Base Excess ABG Hemoglobin Oxyhemoglobin Sodium Potassium Chloride Carbon Dioxide BUN Creatinine Glucose POC Glucose 266 H 154 H Lactic Acid Calcium Phosphorus Magnesium Direct Bilirubin AST ALT Alkaline Phosphatase Lactate Dehydrogenase Troponin T C-Reactive Protein Total Protein Albumin Prealbumin Triglycerides Cholesterol LDL Cholesterol Direct HDL Cholesterol Urine pH Urine WBC (Auto) Urine Creatinine Urine Total Protein Fluid Total Protein Vancomycin Trough Rheumatoid Factor Complement C4 Miscellaneous Test Crossmatch 09/15/16 09/15/16 09/15/16 05:00 05:17 12:45 WBC RBC Hgb Hct MCV MCH MCHC RDW Plt Count Lymph % (Auto) [place] % (Auto) Lymph # [place] # Baso # Seg Neutrophils % Seg Neuts % (Manual) Lymphocytes % (Manual) Monocytes % (Manual) Eosinophils % (Manual) Basophils % (Manual) Nucleated RBC % Seg Neutrophils # Seg Neutrophils # Man Lymphocytes # (Manual) Monocytes # (Manual) Eosinophils # (Manual) Basophils # (Manual) PT INR Fibrinogen dRVVT Confirm Interp Factor V Activity POC ABG pH POC ABG pCO2 POC ABG pO2 ABG pO2 ABG HCO3 ABG Base Excess ABG Hemoglobin Oxyhemoglobin Sodium Potassium 5.2 H Chloride Carbon Dioxide 18 L BUN 139 H Creatinine 3.7 H Glucose 227 H POC Glucose 226 H 244 H Lactic Acid Calcium 8.3 L Phosphorus Magnesium Direct Bilirubin AST ALT Alkaline Phosphatase Lactate Dehydrogenase Troponin T C-Reactive Protein Total Protein Albumin Prealbumin Triglycerides Cholesterol LDL Cholesterol Direct HDL Cholesterol Urine pH Urine WBC (Auto) Urine Creatinine Urine Total Protein Fluid Total Protein Vancomycin Trough Rheumatoid Factor Complement C4 Miscellaneous Test Crossmatch 09/15/16 09/15/16 09/15/16 14:32 17:33 23:35 WBC RBC Hgb Hct MCV MCH MCHC RDW Plt Count Lymph % (Auto) [place] % (Auto) Lymph # [place] # Baso # Seg Neutrophils % Seg Neuts % (Manual) Lymphocytes % (Manual) Monocytes % (Manual) Eosinophils % (Manual) Basophils % (Manual) Nucleated RBC % Seg Neutrophils # Seg Neutrophils # Man Lymphocytes # (Manual) Monocytes # (Manual) Eosinophils # (Manual) Basophils # (Manual) PT INR Fibrinogen dRVVT Confirm Interp Factor V Activity POC ABG pH POC ABG pCO2 27.7 L POC ABG pO2 120 H ABG pO2 ABG HCO3 ABG Base Excess ABG Hemoglobin Oxyhemoglobin Sodium Potassium Chloride Carbon Dioxide BUN Creatinine Glucose POC Glucose 232 H 167 H Lactic Acid Calcium Phosphorus Magnesium Direct Bilirubin AST ALT Alkaline Phosphatase Lactate Dehydrogenase Troponin T C-Reactive Protein Total Protein Albumin Prealbumin Triglycerides Cholesterol LDL Cholesterol Direct HDL Cholesterol Urine pH Urine WBC (Auto) Urine Creatinine Urine Total Protein Fluid Total Protein Vancomycin Trough Rheumatoid Factor Complement C4 Miscellaneous Test Crossmatch 09/16/16 09/16/16 09/16/16 03:58 10:27 10:27 WBC 19.0 H RBC 2.77 L Hgb 6.5 L Hct 20.9 L MCV 76 L MCH 23 L MCHC RDW 19.3 H Plt Count Lymph % (Auto) 11.0 L [place] % (Auto) Lymph # [place] # 1.1 H Baso # Seg Neutrophils % 82.5 H Seg Neuts % (Manual) Lymphocytes % (Manual) Monocytes % (Manual) Eosinophils % (Manual) Basophils % (Manual) Nucleated RBC % Seg Neutrophils # 15.7 H Seg Neutrophils # Man Lymphocytes # (Manual) Monocytes # (Manual) Eosinophils # (Manual) Basophils # (Manual) PT INR Fibrinogen dRVVT Confirm Interp Factor V Activity POC ABG pH POC ABG pCO2 POC ABG pO2 ABG pO2 ABG HCO3 ABG Base Excess ABG Hemoglobin Oxyhemoglobin Sodium Potassium Chloride 109.3 H Carbon Dioxide 18 L BUN 139 H Creatinine 4.1 H Glucose 144 H POC Glucose 146 H Lactic Acid Calcium 8.1 L Phosphorus Magnesium Direct Bilirubin AST ALT Alkaline Phosphatase Lactate Dehydrogenase Troponin T C-Reactive Protein Total Protein Albumin Prealbumin Triglycerides Cholesterol LDL Cholesterol Direct HDL Cholesterol Urine pH Urine WBC (Auto) Urine Creatinine Urine Total Protein Fluid Total Protein Vancomycin Trough Rheumatoid Factor Complement C4 Miscellaneous Test Crossmatch 09/16/16 09/16/16 09/16/16 12:04 12:10 13:55 WBC RBC Hgb Hct MCV MCH MCHC RDW Plt Count Lymph % (Auto) [place] % (Auto) Lymph # [place] # Baso # Seg Neutrophils % Seg Neuts % (Manual) Lymphocytes % (Manual) Monocytes % (Manual) Eosinophils % (Manual) Basophils % (Manual) Nucleated RBC % Seg Neutrophils # Seg Neutrophils # Man Lymphocytes # (Manual) Monocytes # (Manual) Eosinophils # (Manual) Basophils # (Manual) PT INR Fibrinogen dRVVT Confirm Interp Factor V Activity POC ABG pH POC ABG pCO2 32.9 L POC ABG pO2 ABG pO2 ABG HCO3 ABG Base Excess ABG Hemoglobin Oxyhemoglobin Sodium Potassium Chloride Carbon Dioxide BUN Creatinine Glucose POC Glucose 185 H Lactic Acid Calcium Phosphorus Magnesium Direct Bilirubin AST ALT Alkaline Phosphatase Lactate Dehydrogenase Troponin T C-Reactive Protein Total Protein Albumin Prealbumin Triglycerides Cholesterol LDL Cholesterol Direct HDL Cholesterol Urine pH Urine WBC (Auto) Urine Creatinine Urine Total Protein Fluid Total Protein Vancomycin Trough Rheumatoid Factor Complement C4 Miscellaneous Test Crossmatch See Detail 09/16/16 09/16/16 09/16/16 17:55 19:19 23:48 WBC RBC Hgb Hct MCV MCH MCHC RDW Plt Count Lymph % (Auto) [place] % (Auto) Lymph # [place] # Baso # Seg Neutrophils % Seg Neuts % (Manual) Lymphocytes % (Manual) Monocytes % (Manual) Eosinophils % (Manual) Basophils % (Manual) Nucleated RBC % Seg Neutrophils # Seg Neutrophils # Man Lymphocytes # (Manual) Monocytes # (Manual) Eosinophils # (Manual) Basophils # (Manual) PT INR Fibrinogen dRVVT Confirm Interp Factor V Activity POC ABG pH POC ABG pCO2 POC ABG pO2 ABG pO2 ABG HCO3 ABG Base Excess ABG Hemoglobin Oxyhemoglobin Sodium Potassium Chloride Carbon Dioxide BUN Creatinine Glucose POC Glucose 222 H 107 H Lactic Acid Calcium Phosphorus Magnesium Direct Bilirubin AST ALT Alkaline Phosphatase Lactate Dehydrogenase Troponin T C-Reactive Protein Total Protein Albumin Prealbumin Triglycerides Cholesterol LDL Cholesterol Direct HDL Cholesterol Urine pH Urine WBC (Auto) Urine Creatinine 47.4 H Urine Total Protein 16 H Fluid Total Protein Vancomycin Trough Rheumatoid Factor Complement C4 Miscellaneous Test Crossmatch 09/17/16 09/17/16 09/17/16 03:45 03:45 04:55 WBC 19.6 H RBC 3.41 L Hgb 8.5 L Hct 26.7 L MCV 78 L MCH 25 L MCHC RDW 19.9 H Plt Count Lymph % (Auto) 9.3 L [place] % (Auto) Lymph # [place] # 1.2 H Baso # Seg Neutrophils % 83.9 H Seg Neuts % (Manual) Lymphocytes % (Manual) Monocytes % (Manual) Eosinophils % (Manual) Basophils % (Manual) Nucleated RBC % Seg Neutrophils # 16.4 H Seg Neutrophils # Man Lymphocytes # (Manual) Monocytes # (Manual) Eosinophils # (Manual) Basophils # (Manual) PT INR Fibrinogen dRVVT Confirm Interp Factor V Activity POC ABG pH POC ABG pCO2 POC ABG pO2 ABG pO2 ABG HCO3 ABG Base Excess ABG Hemoglobin Oxyhemoglobin Sodium 146 H Potassium 5.1 H Chloride 110.9 H Carbon Dioxide 16 L BUN 146 H Creatinine 4.0 H Glucose 108 H POC Glucose 133 H Lactic Acid Calcium Phosphorus Magnesium 3.00 H Direct Bilirubin AST ALT Alkaline Phosphatase Lactate Dehydrogenase Troponin T C-Reactive Protein Total Protein Albumin Prealbumin Triglycerides Cholesterol LDL Cholesterol Direct HDL Cholesterol Urine pH Urine WBC (Auto) Urine Creatinine Urine Total Protein Fluid Total Protein Vancomycin Trough Rheumatoid Factor Complement C4 Miscellaneous Test Crossmatch 09/17/16 09/17/16 09/17/16 11:15 17:33 23:47 WBC RBC Hgb Hct MCV MCH MCHC RDW Plt Count Lymph % (Auto) [place] % (Auto) Lymph # [place] # Baso # Seg Neutrophils % Seg Neuts % (Manual) Lymphocytes % (Manual) Monocytes % (Manual) Eosinophils % (Manual) Basophils % (Manual) Nucleated RBC % Seg Neutrophils # Seg Neutrophils # Man Lymphocytes # (Manual) Monocytes # (Manual) Eosinophils # (Manual) Basophils # (Manual) PT INR Fibrinogen dRVVT Confirm Interp Factor V Activity POC ABG pH POC ABG pCO2 POC ABG pO2 ABG pO2 ABG HCO3 ABG Base Excess ABG Hemoglobin Oxyhemoglobin Sodium Potassium Chloride Carbon Dioxide BUN Creatinine Glucose POC Glucose 176 H 246 H 148 H Lactic Acid Calcium Phosphorus Magnesium Direct Bilirubin AST ALT Alkaline Phosphatase Lactate Dehydrogenase Troponin T C-Reactive Protein Total Protein Albumin Prealbumin Triglycerides Cholesterol LDL Cholesterol Direct HDL Cholesterol Urine pH Urine WBC (Auto) Urine Creatinine Urine Total Protein Fluid Total Protein Vancomycin Trough Rheumatoid Factor Complement C4 Miscellaneous Test Crossmatch 09/18/16 09/18/16 09/18/16 05:33 08:31 08:31 WBC 18.0 H RBC 3.17 L Hgb 9.0 L Hct 25.7 L MCV MCH MCHC 35 H RDW 20.4 H Plt Count Lymph % (Auto) [place] % (Auto) Lymph # [place] # Baso # Seg Neutrophils % Seg Neuts % (Manual) Lymphocytes % (Manual) Monocytes % (Manual) Eosinophils % (Manual) Basophils % (Manual) Nucleated RBC % Seg Neutrophils # Seg Neutrophils # Man Lymphocytes # (Manual) Monocytes # (Manual) Eosinophils # (Manual) Basophils # (Manual) PT INR Fibrinogen dRVVT Confirm Interp Factor V Activity POC ABG pH POC ABG pCO2 POC ABG pO2 ABG pO2 ABG HCO3 ABG Base Excess ABG Hemoglobin Oxyhemoglobin Sodium Potassium Chloride Carbon Dioxide 15 L BUN 124 H Creatinine 3.8 H Glucose POC Glucose 120 H Lactic Acid Calcium 8.1 L Phosphorus Magnesium Direct Bilirubin AST ALT Alkaline Phosphatase Lactate Dehydrogenase Troponin T C-Reactive Protein Total Protein Albumin Prealbumin Triglycerides Cholesterol LDL Cholesterol Direct HDL Cholesterol Urine pH Urine WBC (Auto) Urine Creatinine Urine Total Protein Fluid Total Protein Vancomycin Trough Rheumatoid Factor Complement C4 Miscellaneous Test Crossmatch 09/18/16 09/18/16 09/18/16 12:03 15:34 17:50 WBC RBC Hgb Hct MCV MCH MCHC RDW Plt Count Lymph % (Auto) [place] % (Auto) Lymph # [place] # Baso # Seg Neutrophils % Seg Neuts % (Manual) Lymphocytes % (Manual) Monocytes % (Manual) Eosinophils % (Manual) Basophils % (Manual) Nucleated RBC % Seg Neutrophils # Seg Neutrophils # Man Lymphocytes # (Manual) Monocytes # (Manual) Eosinophils # (Manual) Basophils # (Manual) PT INR Fibrinogen dRVVT Confirm Interp Factor V Activity POC ABG pH POC ABG pCO2 25.7 L POC ABG pO2 66 L ABG pO2 ABG HCO3 ABG Base Excess ABG Hemoglobin Oxyhemoglobin Sodium Potassium Chloride Carbon Dioxide BUN Creatinine Glucose POC Glucose 156 H 220 H Lactic Acid Calcium Phosphorus Magnesium Direct Bilirubin AST ALT Alkaline Phosphatase Lactate Dehydrogenase Troponin T C-Reactive Protein Total Protein Albumin Prealbumin Triglycerides Cholesterol LDL Cholesterol Direct HDL Cholesterol Urine pH Urine WBC (Auto) Urine Creatinine Urine Total Protein Fluid Total Protein Vancomycin Trough Rheumatoid Factor Complement C4 Miscellaneous Test Crossmatch 09/19/16 09/19/16 09/19/16 06:21 09:50 09:50 WBC 17.1 H RBC 3.49 L Hgb 9.0 L Hct 28.1 L MCV MCH 26 L MCHC RDW 20.8 H Plt Count Lymph % (Auto) 11.5 L [place] % (Auto) 7.5 H Lymph # [place] # 1.3 H Baso # Seg Neutrophils % 79.8 H Seg Neuts % (Manual) Lymphocytes % (Manual) Monocytes % (Manual) Eosinophils % (Manual) Basophils % (Manual) Nucleated RBC % Seg Neutrophils # 13.7 H Seg Neutrophils # Man Lymphocytes # (Manual) Monocytes # (Manual) Eosinophils # (Manual) Basophils # (Manual) PT INR Fibrinogen dRVVT Confirm Interp Factor V Activity POC ABG pH POC ABG pCO2 POC ABG pO2 ABG pO2 ABG HCO3 ABG Base Excess ABG Hemoglobin Oxyhemoglobin Sodium Potassium Chloride 108.6 H Carbon Dioxide 15 L BUN 125 H Creatinine 4.1 H Glucose 124 H POC Glucose 119 H Lactic Acid Calcium Phosphorus Magnesium Direct Bilirubin AST ALT Alkaline Phosphatase Lactate Dehydrogenase Troponin T C-Reactive Protein Total Protein Albumin Prealbumin Triglycerides Cholesterol LDL Cholesterol Direct HDL Cholesterol Urine pH Urine WBC (Auto) Urine Creatinine Urine Total Protein Fluid Total Protein Vancomycin Trough Rheumatoid Factor Complement C4 Miscellaneous Test Crossmatch 09/19/16 09/19/16 09/19/16 11:25 17:53 23:36 WBC RBC Hgb Hct MCV MCH MCHC RDW Plt Count Lymph % (Auto) [place] % (Auto) Lymph # [place] # Baso # Seg Neutrophils % Seg Neuts % (Manual) Lymphocytes % (Manual) Monocytes % (Manual) Eosinophils % (Manual) Basophils % (Manual) Nucleated RBC % Seg Neutrophils # Seg Neutrophils # Man Lymphocytes # (Manual) Monocytes # (Manual) Eosinophils # (Manual) Basophils # (Manual) PT INR Fibrinogen dRVVT Confirm Interp Factor V Activity POC ABG pH POC ABG pCO2 POC ABG pO2 ABG pO2 ABG HCO3 ABG Base Excess ABG Hemoglobin Oxyhemoglobin Sodium Potassium Chloride Carbon Dioxide BUN Creatinine Glucose POC Glucose 160 H 245 H 121 H Lactic Acid Calcium Phosphorus Magnesium Direct Bilirubin AST ALT Alkaline Phosphatase Lactate Dehydrogenase Troponin T C-Reactive Protein Total Protein Albumin Prealbumin Triglycerides Cholesterol LDL Cholesterol Direct HDL Cholesterol Urine pH Urine WBC (Auto) Urine Creatinine Urine Total Protein Fluid Total Protein Vancomycin Trough Rheumatoid Factor Complement C4 Miscellaneous Test Crossmatch 09/20/16 09/20/16 09/20/16 04:10 04:10 04:10 WBC 17.0 H RBC 3.21 L Hgb 8.2 L Hct 25.5 L MCV MCH 26 L MCHC RDW 20.9 H Plt Count Lymph % (Auto) [place] % (Auto) Lymph # [place] # Baso # Seg Neutrophils % Seg Neuts % (Manual) Lymphocytes % (Manual) Monocytes % (Manual) Eosinophils % (Manual) Basophils % (Manual) Nucleated RBC % Seg Neutrophils # Seg Neutrophils # Man Lymphocytes # (Manual) Monocytes # (Manual) Eosinophils # (Manual) Basophils # (Manual) PT INR Fibrinogen dRVVT Confirm Interp Factor V Activity POC ABG pH POC ABG pCO2 POC ABG pO2 ABG pO2 ABG HCO3 ABG Base Excess ABG Hemoglobin Oxyhemoglobin Sodium Potassium Chloride 111.0 H Carbon Dioxide 16 L BUN 129 H Creatinine 3.7 H Glucose 115 H POC Glucose Lactic Acid Calcium 8.2 L Phosphorus Magnesium Direct Bilirubin AST ALT Alkaline Phosphatase Lactate Dehydrogenase Troponin T C-Reactive Protein Total Protein Albumin Prealbumin Triglycerides 243 H Cholesterol LDL Cholesterol Direct HDL Cholesterol Urine pH Urine WBC (Auto) Urine Creatinine Urine Total Protein Fluid Total Protein Vancomycin Trough Rheumatoid Factor Complement C4 Miscellaneous Test Crossmatch 09/20/16 09/20/16 09/20/16 05:40 11:52 16:50 WBC RBC Hgb Hct MCV MCH MCHC RDW Plt Count Lymph % (Auto) [place] % (Auto) Lymph # [place] # Baso # Seg Neutrophils % Seg Neuts % (Manual) Lymphocytes % (Manual) Monocytes % (Manual) Eosinophils % (Manual) Basophils % (Manual) Nucleated RBC % Seg Neutrophils # Seg Neutrophils # Man Lymphocytes # (Manual) Monocytes # (Manual) Eosinophils # (Manual) Basophils # (Manual) PT INR Fibrinogen dRVVT Confirm Interp Factor V Activity POC ABG pH POC ABG pCO2 POC ABG pO2 ABG pO2 ABG HCO3 ABG Base Excess ABG Hemoglobin Oxyhemoglobin Sodium Potassium Chloride Carbon Dioxide BUN Creatinine Glucose POC Glucose 131 H 183 H 236 H Lactic Acid Calcium Phosphorus Magnesium Direct Bilirubin AST ALT Alkaline Phosphatase Lactate Dehydrogenase Troponin T C-Reactive Protein Total Protein Albumin Prealbumin Triglycerides Cholesterol LDL Cholesterol Direct HDL Cholesterol Urine pH Urine WBC (Auto) Urine Creatinine Urine Total Protein Fluid Total Protein Vancomycin Trough Rheumatoid Factor Complement C4 Miscellaneous Test Crossmatch 09/20/16 09/21/16 09/21/16 23:51 03:30 04:44 WBC RBC Hgb Hct MCV MCH MCHC RDW Plt Count Lymph % (Auto) [place] % (Auto) Lymph # [place] # Baso # Seg Neutrophils % Seg Neuts % (Manual) Lymphocytes % (Manual) Monocytes % (Manual) Eosinophils % (Manual) Basophils % (Manual) Nucleated RBC % Seg Neutrophils # Seg Neutrophils # Man Lymphocytes # (Manual) Monocytes # (Manual) Eosinophils # (Manual) Basophils # (Manual) PT INR Fibrinogen dRVVT Confirm Interp Factor V Activity POC ABG pH POC ABG pCO2 POC ABG pO2 ABG pO2 ABG HCO3 ABG Base Excess ABG Hemoglobin Oxyhemoglobin Sodium Potassium Chloride Carbon Dioxide BUN Creatinine Glucose POC Glucose 114 H 141 H Lactic Acid Calcium Phosphorus Magnesium 2.70 H Direct Bilirubin AST ALT Alkaline Phosphatase Lactate Dehydrogenase Troponin T C-Reactive Protein Total Protein Albumin Prealbumin Triglycerides Cholesterol LDL Cholesterol Direct HDL Cholesterol Urine pH Urine WBC (Auto) Urine Creatinine Urine Total Protein Fluid Total Protein Vancomycin Trough Rheumatoid Factor Complement C4 Miscellaneous Test Crossmatch 09/21/16 09/21/16 09/21/16 07:45 07:45 10:01 WBC 13.8 H RBC 2.94 L Hgb 7.5 L Hct 23.5 L MCV MCH 26 L MCHC RDW 21.2 H Plt Count Lymph % (Auto) 6.9 L [place] % (Auto) 9.4 H Lymph # 0.9 L [place] # 1.3 H Baso # Seg Neutrophils % 83.2 H Seg Neuts % (Manual) Lymphocytes % (Manual) Monocytes % (Manual) Eosinophils % (Manual) Basophils % (Manual) Nucleated RBC % Seg Neutrophils # 11.5 H Seg Neutrophils # Man Lymphocytes # (Manual) Monocytes # (Manual) Eosinophils # (Manual) Basophils # (Manual) PT INR Fibrinogen dRVVT Confirm Interp Factor V Activity POC ABG pH 7.308 L POC ABG pCO2 31.9 L POC ABG pO2 148 H ABG pO2 ABG HCO3 ABG Base Excess ABG Hemoglobin Oxyhemoglobin Sodium 147 H Potassium Chloride 114.2 H Carbon Dioxide 15 L BUN 120 H Creatinine 3.9 H Glucose 156 H POC Glucose Lactic Acid Calcium 8.2 L Phosphorus Magnesium Direct Bilirubin AST ALT Alkaline Phosphatase Lactate Dehydrogenase Troponin T C-Reactive Protein Total Protein Albumin Prealbumin Triglycerides Cholesterol LDL Cholesterol Direct HDL Cholesterol Urine pH Urine WBC (Auto) Urine Creatinine Urine Total Protein Fluid Total Protein Vancomycin Trough Rheumatoid Factor Complement C4 Miscellaneous Test Crossmatch 09/21/16 09/21/16 09/21/16 12:00 12:03 13:00 WBC RBC Hgb Hct MCV MCH MCHC RDW Plt Count Lymph % (Auto) [place] % (Auto) Lymph # [place] # Baso # Seg Neutrophils % Seg Neuts % (Manual) Lymphocytes % (Manual) Monocytes % (Manual) Eosinophils % (Manual) Basophils % (Manual) Nucleated RBC % Seg Neutrophils # Seg Neutrophils # Man Lymphocytes # (Manual) Monocytes # (Manual) Eosinophils # (Manual) Basophils # (Manual) PT INR Fibrinogen dRVVT Confirm Interp Factor V Activity POC ABG pH POC ABG pCO2 POC ABG pO2 ABG pO2 ABG HCO3 ABG Base Excess ABG Hemoglobin Oxyhemoglobin Sodium Potassium Chloride Carbon Dioxide BUN Creatinine Glucose POC Glucose 163 H Lactic Acid Calcium Phosphorus Magnesium Direct Bilirubin AST ALT Alkaline Phosphatase Lactate Dehydrogenase Troponin T C-Reactive Protein Total Protein Albumin Prealbumin Triglycerides Cholesterol LDL Cholesterol Direct HDL Cholesterol Urine pH Urine WBC (Auto) Urine Creatinine 54.8 H Urine Total Protein Fluid Total Protein Vancomycin Trough 2.3 L Rheumatoid Factor Complement C4 Miscellaneous Test Crossmatch 09/21/16 09/21/16 09/22/16 16:51 23:17 06:27 WBC RBC Hgb Hct MCV MCH MCHC RDW Plt Count Lymph % (Auto) [place] % (Auto) Lymph # [place] # Baso # Seg Neutrophils % Seg Neuts % (Manual) Lymphocytes % (Manual) Monocytes % (Manual) Eosinophils % (Manual) Basophils % (Manual) Nucleated RBC % Seg Neutrophils # Seg Neutrophils # Man Lymphocytes # (Manual) Monocytes # (Manual) Eosinophils # (Manual) Basophils # (Manual) PT INR Fibrinogen dRVVT Confirm Interp Factor V Activity POC ABG pH POC ABG pCO2 POC ABG pO2 ABG pO2 ABG HCO3 ABG Base Excess ABG Hemoglobin Oxyhemoglobin Sodium Potassium Chloride Carbon Dioxide BUN Creatinine Glucose POC Glucose 206 H 114 H 115 H Lactic Acid Calcium Phosphorus Magnesium Direct Bilirubin AST ALT Alkaline Phosphatase Lactate Dehydrogenase Troponin T C-Reactive Protein Total Protein Albumin Prealbumin Triglycerides Cholesterol LDL Cholesterol Direct HDL Cholesterol Urine pH Urine WBC (Auto) Urine Creatinine Urine Total Protein Fluid Total Protein Vancomycin Trough Rheumatoid Factor Complement C4 Miscellaneous Test Crossmatch 09/22/16 09/22/16 09/22/16 07:50 07:50 12:00 WBC 17.8 H RBC 3.04 L Hgb 8.0 L Hct 24.7 L MCV MCH 26 L MCHC RDW 21.6 H Plt Count Lymph % (Auto) [place] % (Auto) Lymph # [place] # Baso # Seg Neutrophils % Seg Neuts % (Manual) Lymphocytes % (Manual) Monocytes % (Manual) Eosinophils % (Manual) Basophils % (Manual) Nucleated RBC % Seg Neutrophils # Seg Neutrophils # Man Lymphocytes # (Manual) Monocytes # (Manual) Eosinophils # (Manual) Basophils # (Manual) PT INR Fibrinogen dRVVT Confirm Interp Factor V Activity POC ABG pH POC ABG pCO2 POC ABG pO2 ABG pO2 ABG HCO3 ABG Base Excess ABG Hemoglobin Oxyhemoglobin Sodium 150 H Potassium Chloride 118.2 H Carbon Dioxide 14 L BUN 111 H Creatinine 3.7 H Glucose 157 H POC Glucose 183 H Lactic Acid Calcium Phosphorus Magnesium Direct Bilirubin AST ALT Alkaline Phosphatase Lactate Dehydrogenase Troponin T C-Reactive Protein Total Protein Albumin Prealbumin Triglycerides Cholesterol LDL Cholesterol Direct HDL Cholesterol Urine pH Urine WBC (Auto) Urine Creatinine Urine Total Protein Fluid Total Protein Vancomycin Trough Rheumatoid Factor Complement C4 Miscellaneous Test Crossmatch 09/22/16 09/22/16 09/23/16 17:29 23:10 05:00 WBC 19.2 H RBC 3.13 L Hgb 8.0 L Hct 25.2 L MCV MCH 26 L MCHC RDW 22.1 H Plt Count Lymph % (Auto) [place] % (Auto) Lymph # [place] # Baso # Seg Neutrophils % Seg Neuts % (Manual) 92.0 H Lymphocytes % (Manual) 3.0 L Monocytes % (Manual) Eosinophils % (Manual) Basophils % (Manual) Nucleated RBC % Seg Neutrophils # Seg Neutrophils # Man 17.7 H Lymphocytes # (Manual) 0.6 L Monocytes # (Manual) Eosinophils # (Manual) Basophils # (Manual) PT INR Fibrinogen dRVVT Confirm Interp Factor V Activity POC ABG pH POC ABG pCO2 POC ABG pO2 ABG pO2 ABG HCO3 ABG Base Excess ABG Hemoglobin Oxyhemoglobin Sodium Potassium Chloride Carbon Dioxide BUN Creatinine Glucose POC Glucose 197 H 169 H Lactic Acid Calcium Phosphorus Magnesium Direct Bilirubin AST ALT Alkaline Phosphatase Lactate Dehydrogenase Troponin T C-Reactive Protein Total Protein Albumin Prealbumin Triglycerides Cholesterol LDL Cholesterol Direct HDL Cholesterol Urine pH Urine WBC (Auto) Urine Creatinine Urine Total Protein Fluid Total Protein Vancomycin Trough Rheumatoid Factor Complement C4 Miscellaneous Test Crossmatch 09/23/16 09/23/16 09/23/16 05:00 05:00 05:10 WBC RBC Hgb Hct MCV MCH MCHC RDW Plt Count Lymph % (Auto) [place] % (Auto) Lymph # [place] # Baso # Seg Neutrophils % Seg Neuts % (Manual) Lymphocytes % (Manual) Monocytes % (Manual) Eosinophils % (Manual) Basophils % (Manual) Nucleated RBC % Seg Neutrophils # Seg Neutrophils # Man Lymphocytes # (Manual) Monocytes # (Manual) Eosinophils # (Manual) Basophils # (Manual) PT INR Fibrinogen dRVVT Confirm Interp Factor V Activity POC ABG pH POC ABG pCO2 POC ABG pO2 ABG pO2 ABG HCO3 ABG Base Excess ABG Hemoglobin Oxyhemoglobin Sodium 147 H Potassium 3.2 L Chloride 115.7 H Carbon Dioxide 13 L BUN 111 H Creatinine 3.8 H Glucose 194 H POC Glucose 188 H Lactic Acid Calcium 7.3 L D Phosphorus Magnesium Direct Bilirubin AST ALT Alkaline Phosphatase Lactate Dehydrogenase Troponin T C-Reactive Protein 3.20 H Total Protein Albumin Prealbumin Triglycerides Cholesterol LDL Cholesterol Direct HDL Cholesterol Urine pH Urine WBC (Auto) Urine Creatinine Urine Total Protein Fluid Total Protein Vancomycin Trough Rheumatoid Factor Complement C4 Miscellaneous Test Crossmatch 09/23/16 09/23/16 09/23/16 11:37 12:29 18:01 WBC RBC Hgb Hct MCV MCH MCHC RDW Plt Count Lymph % (Auto) [place] % (Auto) Lymph # [place] # Baso # Seg Neutrophils % Seg Neuts % (Manual) Lymphocytes % (Manual) Monocytes % (Manual) Eosinophils % (Manual) Basophils % (Manual) Nucleated RBC % Seg Neutrophils # Seg Neutrophils # Man Lymphocytes # (Manual) Monocytes # (Manual) Eosinophils # (Manual) Basophils # (Manual) PT INR Fibrinogen dRVVT Confirm Interp Factor V Activity POC ABG pH POC ABG pCO2 18.9 L POC ABG pO2 143 H ABG pO2 ABG HCO3 ABG Base Excess ABG Hemoglobin Oxyhemoglobin Sodium Potassium Chloride Carbon Dioxide BUN Creatinine Glucose POC Glucose 153 H 108 H Lactic Acid Calcium Phosphorus Magnesium Direct Bilirubin AST ALT Alkaline Phosphatase Lactate Dehydrogenase Troponin T C-Reactive Protein Total Protein Albumin Prealbumin Triglycerides Cholesterol LDL Cholesterol Direct HDL Cholesterol Urine pH Urine WBC (Auto) Urine Creatinine Urine Total Protein Fluid Total Protein Vancomycin Trough Rheumatoid Factor Complement C4 Miscellaneous Test Crossmatch 09/23/16 09/23/16 09/24/16 21:19 23:43 05:16 WBC RBC Hgb Hct MCV MCH MCHC RDW Plt Count Lymph % (Auto) [place] % (Auto) Lymph # [place] # Baso # Seg Neutrophils % Seg Neuts % (Manual) Lymphocytes % (Manual) Monocytes % (Manual) Eosinophils % (Manual) Basophils % (Manual) Nucleated RBC % Seg Neutrophils # Seg Neutrophils # Man Lymphocytes # (Manual) Monocytes # (Manual) Eosinophils # (Manual) Basophils # (Manual) PT INR Fibrinogen dRVVT Confirm Interp Factor V Activity POC ABG pH POC ABG pCO2 17.3 L POC ABG pO2 112 H ABG pO2 ABG HCO3 ABG Base Excess ABG Hemoglobin Oxyhemoglobin Sodium Potassium Chloride Carbon Dioxide BUN Creatinine Glucose POC Glucose 143 H 164 H Lactic Acid Calcium Phosphorus Magnesium Direct Bilirubin AST ALT Alkaline Phosphatase Lactate Dehydrogenase Troponin T C-Reactive Protein Total Protein Albumin Prealbumin Triglycerides Cholesterol LDL Cholesterol Direct HDL Cholesterol Urine pH Urine WBC (Auto) Urine Creatinine Urine Total Protein Fluid Total Protein Vancomycin Trough Rheumatoid Factor Complement C4 Miscellaneous Test Crossmatch 09/24/16 09/24/16 09/24/16 05:21 11:58 17:06 WBC RBC Hgb Hct MCV MCH MCHC RDW Plt Count Lymph % (Auto) [place] % (Auto) Lymph # [place] # Baso # Seg Neutrophils % Seg Neuts % (Manual) Lymphocytes % (Manual) Monocytes % (Manual) Eosinophils % (Manual) Basophils % (Manual) Nucleated RBC % Seg Neutrophils # Seg Neutrophils # Man Lymphocytes # (Manual) Monocytes # (Manual) Eosinophils # (Manual) Basophils # (Manual) PT INR Fibrinogen dRVVT Confirm Interp Factor V Activity POC ABG pH POC ABG pCO2 POC ABG pO2 ABG pO2 ABG HCO3 ABG Base Excess ABG Hemoglobin Oxyhemoglobin Sodium Potassium Chloride Carbon Dioxide 10 L BUN 103 H Creatinine 4.3 H Glucose 163 H POC Glucose 173 H 167 H Lactic Acid Calcium 6.5 L Phosphorus Magnesium Direct Bilirubin AST ALT Alkaline Phosphatase Lactate Dehydrogenase Troponin T C-Reactive Protein Total Protein Albumin Prealbumin Triglycerides Cholesterol LDL Cholesterol Direct HDL Cholesterol Urine pH Urine WBC (Auto) Urine Creatinine Urine Total Protein Fluid Total Protein Vancomycin Trough Rheumatoid Factor Complement C4 Miscellaneous Test Crossmatch 09/24/16 09/24/16 09/24/16 20:15 21:02 23:48 WBC RBC Hgb Hct MCV MCH MCHC RDW Plt Count Lymph % (Auto) [place] % (Auto) Lymph # [place] # Baso # Seg Neutrophils % Seg Neuts % (Manual) Lymphocytes % (Manual) Monocytes % (Manual) Eosinophils % (Manual) Basophils % (Manual) Nucleated RBC % Seg Neutrophils # Seg Neutrophils # Man Lymphocytes # (Manual) Monocytes # (Manual) Eosinophils # (Manual) Basophils # (Manual) PT INR Fibrinogen dRVVT Confirm Interp Factor V Activity POC ABG pH 7.288 L POC ABG pCO2 30.2 L 21.5 L POC ABG pO2 32 L 39 L ABG pO2 ABG HCO3 ABG Base Excess ABG Hemoglobin Oxyhemoglobin Sodium Potassium Chloride Carbon Dioxide BUN Creatinine Glucose POC Glucose 109 H Lactic Acid Calcium Phosphorus Magnesium Direct Bilirubin AST ALT Alkaline Phosphatase Lactate Dehydrogenase Troponin T C-Reactive Protein Total Protein Albumin Prealbumin Triglycerides Cholesterol LDL Cholesterol Direct HDL Cholesterol Urine pH Urine WBC (Auto) Urine Creatinine Urine Total Protein Fluid Total Protein Vancomycin Trough Rheumatoid Factor Complement C4 Miscellaneous Test Crossmatch 09/25/16 09/25/16 09/25/16 04:20 04:20 04:20 WBC RBC 2.58 L Hgb 7.0 L Hct 21.0 L MCV MCH 27 L MCHC RDW 23.8 H Plt Count Lymph % (Auto) [place] % (Auto) Lymph # [place] # Baso # Seg Neutrophils % Seg Neuts % (Manual) Lymphocytes % (Manual) 12.0 L Monocytes % (Manual) Eosinophils % (Manual) 7.0 H Basophils % (Manual) 2.0 H Nucleated RBC % Seg Neutrophils # Seg Neutrophils # Man Lymphocytes # (Manual) 0.9 L Monocytes # (Manual) Eosinophils # (Manual) 0.5 H Basophils # (Manual) PT INR Fibrinogen dRVVT Confirm Interp Factor V Activity POC ABG pH POC ABG pCO2 POC ABG pO2 ABG pO2 ABG HCO3 ABG Base Excess ABG Hemoglobin Oxyhemoglobin Sodium Potassium Chloride Carbon Dioxide 15 L BUN 72 H Creatinine 3.8 H Glucose POC Glucose Lactic Acid Calcium 6.0 L Phosphorus 4.60 H Magnesium 1.60 L Direct Bilirubin AST ALT Alkaline Phosphatase Lactate Dehydrogenase Troponin T C-Reactive Protein Total Protein Albumin Prealbumin Triglycerides Cholesterol LDL Cholesterol Direct HDL Cholesterol Urine pH Urine WBC (Auto) Urine Creatinine Urine Total Protein Fluid Total Protein Vancomycin Trough Rheumatoid Factor Complement C4 Miscellaneous Test Crossmatch 09/25/16 09/25/16 09/25/16 04:57 08:02 10:30 WBC RBC Hgb Hct MCV MCH MCHC RDW Plt Count Lymph % (Auto) [place] % (Auto) Lymph # [place] # Baso # Seg Neutrophils % Seg Neuts % (Manual) Lymphocytes % (Manual) Monocytes % (Manual) Eosinophils % (Manual) Basophils % (Manual) Nucleated RBC % Seg Neutrophils # Seg Neutrophils # Man Lymphocytes # (Manual) Monocytes # (Manual) Eosinophils # (Manual) Basophils # (Manual) PT INR Fibrinogen dRVVT Confirm Interp Factor V Activity POC ABG pH POC ABG pCO2 24.7 L POC ABG pO2 152 H ABG pO2 ABG HCO3 ABG Base Excess ABG Hemoglobin Oxyhemoglobin Sodium Potassium Chloride Carbon Dioxide BUN Creatinine Glucose POC Glucose 113 H Lactic Acid Calcium Phosphorus Magnesium Direct Bilirubin AST ALT Alkaline Phosphatase Lactate Dehydrogenase Troponin T C-Reactive Protein Total Protein Albumin Prealbumin Triglycerides Cholesterol LDL Cholesterol Direct HDL Cholesterol Urine pH Urine WBC (Auto) Urine Creatinine Urine Total Protein Fluid Total Protein Vancomycin Trough Rheumatoid Factor Complement C4 Miscellaneous Test Crossmatch See Detail 09/25/16 09/25/16 09/25/16 12:05 17:44 23:47 WBC RBC Hgb Hct MCV MCH MCHC RDW Plt Count Lymph % (Auto) [place] % (Auto) Lymph # [place] # Baso # Seg Neutrophils % Seg Neuts % (Manual) Lymphocytes % (Manual) Monocytes % (Manual) Eosinophils % (Manual) Basophils % (Manual) Nucleated RBC % Seg Neutrophils # Seg Neutrophils # Man Lymphocytes # (Manual) Monocytes # (Manual) Eosinophils # (Manual) Basophils # (Manual) PT INR Fibrinogen dRVVT Confirm Interp Factor V Activity POC ABG pH POC ABG pCO2 POC ABG pO2 ABG pO2 ABG HCO3 ABG Base Excess ABG Hemoglobin Oxyhemoglobin Sodium Potassium Chloride Carbon Dioxide BUN Creatinine Glucose POC Glucose 117 H 119 H 150 H Lactic Acid Calcium Phosphorus Magnesium Direct Bilirubin AST ALT Alkaline Phosphatase Lactate Dehydrogenase Troponin T C-Reactive Protein Total Protein Albumin Prealbumin Triglycerides Cholesterol LDL Cholesterol Direct HDL Cholesterol Urine pH Urine WBC (Auto) Urine Creatinine Urine Total Protein Fluid Total Protein Vancomycin Trough Rheumatoid Factor Complement C4 Miscellaneous Test Crossmatch 09/26/16 09/26/16 09/26/16 04:25 04:25 04:25 WBC RBC 2.65 L Hgb 7.4 L Hct 21.6 L MCV MCH MCHC RDW 22.5 H Plt Count Lymph % (Auto) [place] % (Auto) Lymph # [place] # Baso # Seg Neutrophils % Seg Neuts % (Manual) Lymphocytes % (Manual) 6.0 L Monocytes % (Manual) Eosinophils % (Manual) 11.0 H Basophils % (Manual) Nucleated RBC % Seg Neutrophils # Seg Neutrophils # Man Lymphocytes # (Manual) 0.4 L Monocytes # (Manual) Eosinophils # (Manual) 0.6 H Basophils # (Manual) PT INR Fibrinogen dRVVT Confirm Interp Factor V Activity POC ABG pH POC ABG pCO2 POC ABG pO2 ABG pO2 ABG HCO3 ABG Base Excess ABG Hemoglobin Oxyhemoglobin Sodium Potassium Chloride 97.0 L Carbon Dioxide 19 L BUN 43 H Creatinine 2.6 H Glucose 130 H POC Glucose Lactic Acid 4.40 H* Calcium 6.7 L Phosphorus Magnesium Direct Bilirubin AST ALT Alkaline Phosphatase Lactate Dehydrogenase Troponin T C-Reactive Protein Total Protein Albumin Prealbumin Triglycerides Cholesterol LDL Cholesterol Direct HDL Cholesterol Urine pH Urine WBC (Auto) Urine Creatinine Urine Total Protein Fluid Total Protein Vancomycin Trough Rheumatoid Factor Complement C4 Miscellaneous Test Crossmatch 09/26/16 09/26/16 09/26/16 05:20 11:44 12:12 WBC RBC Hgb Hct MCV MCH MCHC RDW Plt Count Lymph % (Auto) [place] % (Auto) Lymph # [place] # Baso # Seg Neutrophils % Seg Neuts % (Manual) Lymphocytes % (Manual) Monocytes % (Manual) Eosinophils % (Manual) Basophils % (Manual) Nucleated RBC % Seg Neutrophils # Seg Neutrophils # Man Lymphocytes # (Manual) Monocytes # (Manual) Eosinophils # (Manual) Basophils # (Manual) PT INR Fibrinogen dRVVT Confirm Interp Factor V Activity POC ABG pH POC ABG pCO2 27.0 L POC ABG pO2 69 L ABG pO2 ABG HCO3 ABG Base Excess ABG Hemoglobin Oxyhemoglobin Sodium Potassium Chloride Carbon Dioxide BUN Creatinine Glucose POC Glucose 121 H 128 H Lactic Acid Calcium Phosphorus Magnesium Direct Bilirubin AST ALT Alkaline Phosphatase Lactate Dehydrogenase Troponin T C-Reactive Protein Total Protein Albumin Prealbumin Triglycerides Cholesterol LDL Cholesterol Direct HDL Cholesterol Urine pH Urine WBC (Auto) Urine Creatinine Urine Total Protein Fluid Total Protein Vancomycin Trough Rheumatoid Factor Complement C4 Miscellaneous Test Crossmatch 09/26/16 09/26/16 09/27/16 18:31 23:40 08:20 WBC RBC Hgb Hct MCV MCH MCHC RDW Plt Count Lymph % (Auto) [place] % (Auto) Lymph # [place] # Baso # Seg Neutrophils % Seg Neuts % (Manual) Lymphocytes % (Manual) Monocytes % (Manual) Eosinophils % (Manual) Basophils % (Manual) Nucleated RBC % Seg Neutrophils # Seg Neutrophils # Man Lymphocytes # (Manual) Monocytes # (Manual) Eosinophils # (Manual) Basophils # (Manual) PT INR Fibrinogen dRVVT Confirm Interp Factor V Activity POC ABG pH POC ABG pCO2 POC ABG pO2 ABG pO2 ABG HCO3 ABG Base Excess ABG Hemoglobin Oxyhemoglobin Sodium Potassium Chloride Carbon Dioxide BUN Creatinine Glucose POC Glucose 120 H 133 H Lactic Acid 4.10 H* Calcium Phosphorus Magnesium Direct Bilirubin AST ALT Alkaline Phosphatase Lactate Dehydrogenase Troponin T C-Reactive Protein Total Protein Albumin Prealbumin Triglycerides Cholesterol LDL Cholesterol Direct HDL Cholesterol Urine pH Urine WBC (Auto) Urine Creatinine Urine Total Protein Fluid Total Protein Vancomycin Trough Rheumatoid Factor Complement C4 Miscellaneous Test Crossmatch 09/27/16 09/27/16 09/27/16 11:23 15:00 18:15 WBC RBC Hgb Hct MCV MCH MCHC RDW Plt Count Lymph % (Auto) [place] % (Auto) Lymph # [place] # Baso # Seg Neutrophils % Seg Neuts % (Manual) Lymphocytes % (Manual) Monocytes % (Manual) Eosinophils % (Manual) Basophils % (Manual) Nucleated RBC % Seg Neutrophils # Seg Neutrophils # Man Lymphocytes # (Manual) Monocytes # (Manual) Eosinophils # (Manual) Basophils # (Manual) PT INR Fibrinogen dRVVT Confirm Interp Factor V Activity POC ABG pH 7.459 H POC ABG pCO2 27.1 L POC ABG pO2 140 H ABG pO2 ABG HCO3 ABG Base Excess ABG Hemoglobin Oxyhemoglobin Sodium Potassium Chloride Carbon Dioxide BUN Creatinine Glucose POC Glucose 114 H 127 H Lactic Acid Calcium Phosphorus Magnesium Direct Bilirubin AST ALT Alkaline Phosphatase Lactate Dehydrogenase Troponin T C-Reactive Protein Total Protein Albumin Prealbumin Triglycerides Cholesterol LDL Cholesterol Direct HDL Cholesterol Urine pH Urine WBC (Auto) Urine Creatinine Urine Total Protein Fluid Total Protein Vancomycin Trough Rheumatoid Factor Complement C4 Miscellaneous Test Crossmatch 09/27/16 09/27/16 09/28/16 Unknown Unknown 03:45 WBC RBC 2.49 L Hgb 6.8 L Hct 20.7 L MCV MCH 27 L MCHC RDW 22.1 H Plt Count Lymph % (Auto) [place] % (Auto) Lymph # [place] # Baso # Seg Neutrophils % Seg Neuts % (Manual) 32.0 L Lymphocytes % (Manual) 12.0 L Monocytes % (Manual) 11.0 H Eosinophils % (Manual) 10.0 H Basophils % (Manual) Nucleated RBC % Seg Neutrophils # Seg Neutrophils # Man Lymphocytes # (Manual) 1.0 L Monocytes # (Manual) 0.9 H Eosinophils # (Manual) 0.8 H Basophils # (Manual) PT INR Fibrinogen dRVVT Confirm Interp Factor V Activity POC ABG pH POC ABG pCO2 POC ABG pO2 ABG pO2 ABG HCO3 ABG Base Excess ABG Hemoglobin Oxyhemoglobin Sodium 135 L 135 L Potassium 3.5 L Chloride 93.6 L 94.4 L Carbon Dioxide 17 L 21 L BUN 45 H 28 H Creatinine 3.3 H 2.5 H Glucose 106 H POC Glucose Lactic Acid Calcium 7.3 L 7.1 L Phosphorus Magnesium Direct Bilirubin AST ALT Alkaline Phosphatase Lactate Dehydrogenase Troponin T C-Reactive Protein Total Protein Albumin Prealbumin Triglycerides Cholesterol LDL Cholesterol Direct HDL Cholesterol Urine pH Urine WBC (Auto) Urine Creatinine Urine Total Protein Fluid Total Protein Vancomycin Trough Rheumatoid Factor Complement C4 Miscellaneous Test Crossmatch 09/28/16 09/28/16 09/28/16 03:45 07:25 11:58 WBC 13.3 H RBC 3.01 L Hgb 8.4 L Hct 25.0 L MCV MCH MCHC RDW 20.5 H Plt Count 128 L Lymph % (Auto) [place] % (Auto) Lymph # [place] # Baso # Seg Neutrophils % Seg Neuts % (Manual) Lymphocytes % (Manual) 7.0 L Monocytes % (Manual) Eosinophils % (Manual) 6.0 H Basophils % (Manual) Nucleated RBC % Seg Neutrophils # Seg Neutrophils # Man Lymphocytes # (Manual) 0.9 L Monocytes # (Manual) Eosinophils # (Manual) 0.8 H Basophils # (Manual) PT INR Fibrinogen dRVVT Confirm Interp Factor V Activity POC ABG pH POC ABG pCO2 POC ABG pO2 ABG pO2 ABG HCO3 ABG Base Excess ABG Hemoglobin Oxyhemoglobin Sodium Potassium Chloride Carbon Dioxide BUN Creatinine Glucose POC Glucose 121 H Lactic Acid 4.50 H* Calcium Phosphorus Magnesium Direct Bilirubin AST ALT Alkaline Phosphatase Lactate Dehydrogenase Troponin T C-Reactive Protein Total Protein Albumin Prealbumin Triglycerides Cholesterol LDL Cholesterol Direct HDL Cholesterol Urine pH Urine WBC (Auto) Urine Creatinine Urine Total Protein Fluid Total Protein Vancomycin Trough Rheumatoid Factor Complement C4 Miscellaneous Test Crossmatch 09/29/16 09/29/16 09/29/16 06:45 06:45 06:45 WBC 14.9 H RBC 2.74 L Hgb 7.6 L Hct 23.2 L MCV MCH MCHC RDW 20.5 H Plt Count 81 L Lymph % (Auto) [place] % (Auto) Lymph # [place] # Baso # Seg Neutrophils % Seg Neuts % (Manual) 81.0 H Lymphocytes % (Manual) 4.0 L Monocytes % (Manual) Eosinophils % (Manual) Basophils % (Manual) Nucleated RBC % Seg Neutrophils # Seg Neutrophils # Man 12.1 H Lymphocytes # (Manual) 0.6 L Monocytes # (Manual) Eosinophils # (Manual) Basophils # (Manual) PT INR Fibrinogen dRVVT Confirm Interp Factor V Activity POC ABG pH POC ABG pCO2 POC ABG pO2 ABG pO2 ABG HCO3 ABG Base Excess ABG Hemoglobin Oxyhemoglobin Sodium 133 L Potassium 3.4 L Chloride 92.5 L Carbon Dioxide 21 L BUN 33 H Creatinine 3.0 H Glucose POC Glucose Lactic Acid Calcium 6.6 L Phosphorus Magnesium 1.40 L Direct Bilirubin 0.9 H AST ALT Alkaline Phosphatase Lactate Dehydrogenase Troponin T C-Reactive Protein Total Protein 4.3 L Albumin 1.3 L Prealbumin Triglycerides Cholesterol LDL Cholesterol Direct HDL Cholesterol Urine pH Urine WBC (Auto) Urine Creatinine Urine Total Protein Fluid Total Protein Vancomycin Trough Rheumatoid Factor Complement C4 Miscellaneous Test Crossmatch 09/29/16 09/29/16 09/30/16 17:52 20:12 00:07 WBC RBC Hgb Hct MCV MCH MCHC RDW Plt Count Lymph % (Auto) [place] % (Auto) Lymph # [place] # Baso # Seg Neutrophils % Seg Neuts % (Manual) Lymphocytes % (Manual) Monocytes % (Manual) Eosinophils % (Manual) Basophils % (Manual) Nucleated RBC % Seg Neutrophils # Seg Neutrophils # Man Lymphocytes # (Manual) Monocytes # (Manual) Eosinophils # (Manual) Basophils # (Manual) PT INR Fibrinogen dRVVT Confirm Interp Factor V Activity POC ABG pH POC ABG pCO2 POC ABG pO2 ABG pO2 ABG HCO3 ABG Base Excess ABG Hemoglobin Oxyhemoglobin Sodium Potassium Chloride Carbon Dioxide BUN Creatinine Glucose POC Glucose 50 L 51 L Lactic Acid Calcium Phosphorus Magnesium Direct Bilirubin AST ALT Alkaline Phosphatase Lactate Dehydrogenase Troponin T 0.204 H* C-Reactive Protein Total Protein Albumin Prealbumin Triglycerides Cholesterol 31 L LDL Cholesterol Direct 4 L HDL Cholesterol 3 L Urine pH Urine WBC (Auto) Urine Creatinine Urine Total Protein Fluid Total Protein Vancomycin Trough Rheumatoid Factor Complement C4 Miscellaneous Test Crossmatch 09/30/16 09/30/16 09/30/16 01:30 05:15 06:10 WBC RBC Hgb Hct MCV MCH MCHC RDW Plt Count Lymph % (Auto) [place] % (Auto) Lymph # [place] # Baso # Seg Neutrophils % Seg Neuts % (Manual) Lymphocytes % (Manual) Monocytes % (Manual) Eosinophils % (Manual) Basophils % (Manual) Nucleated RBC % Seg Neutrophils # Seg Neutrophils # Man Lymphocytes # (Manual) Monocytes # (Manual) Eosinophils # (Manual) Basophils # (Manual) PT INR Fibrinogen dRVVT Confirm Interp Factor V Activity POC ABG pH POC ABG pCO2 POC ABG pO2 ABG pO2 ABG HCO3 ABG Base Excess ABG Hemoglobin Oxyhemoglobin Sodium 133 L Potassium 3.2 L Chloride 93.2 L Carbon Dioxide 19 L BUN 36 H Creatinine 3.2 H Glucose 104 H POC Glucose 167 H 146 H Lactic Acid Calcium 6.4 L Phosphorus Magnesium 1.60 L Direct Bilirubin AST ALT Alkaline Phosphatase Lactate Dehydrogenase Troponin T C-Reactive Protein Total Protein Albumin Prealbumin Triglycerides Cholesterol LDL Cholesterol Direct HDL Cholesterol Urine pH Urine WBC (Auto) Urine Creatinine Urine Total Protein Fluid Total Protein Vancomycin Trough Rheumatoid Factor Complement C4 Miscellaneous Test Crossmatch 09/30/16 09/30/16 09/30/16 11:26 13:39 18:38 WBC RBC Hgb Hct MCV MCH MCHC RDW Plt Count Lymph % (Auto) [place] % (Auto) Lymph # [place] # Baso # Seg Neutrophils % Seg Neuts % (Manual) Lymphocytes % (Manual) Monocytes % (Manual) Eosinophils % (Manual) Basophils % (Manual) Nucleated RBC % Seg Neutrophils # Seg Neutrophils # Man Lymphocytes # (Manual) Monocytes # (Manual) Eosinophils # (Manual) Basophils # (Manual) PT INR Fibrinogen dRVVT Confirm Interp Factor V Activity POC ABG pH 7.479 H POC ABG pCO2 29.8 L POC ABG pO2 117 H ABG pO2 ABG HCO3 ABG Base Excess ABG Hemoglobin Oxyhemoglobin Sodium Potassium Chloride Carbon Dioxide BUN Creatinine Glucose POC Glucose 140 H 122 H Lactic Acid Calcium Phosphorus Magnesium Direct Bilirubin AST ALT Alkaline Phosphatase Lactate Dehydrogenase Troponin T C-Reactive Protein Total Protein Albumin Prealbumin Triglycerides Cholesterol LDL Cholesterol Direct HDL Cholesterol Urine pH Urine WBC (Auto) Urine Creatinine Urine Total Protein Fluid Total Protein Vancomycin Trough Rheumatoid Factor Complement C4 Miscellaneous Test Crossmatch 10/01/16 10/01/16 10/01/16 06:00 06:00 12:37 WBC 12.6 H RBC 2.75 L Hgb 7.3 L Hct 23.3 L MCV MCH 27 L MCHC RDW 20.6 H Plt Count 72 L Lymph % (Auto) [place] % (Auto) Lymph # [place] # Baso # Seg Neutrophils % Seg Neuts % (Manual) 31.0 L Lymphocytes % (Manual) 8.0 L Monocytes % (Manual) Eosinophils % (Manual) Basophils % (Manual) Nucleated RBC % 3.0 H Seg Neutrophils # Seg Neutrophils # Man Lymphocytes # (Manual) 1.0 L Monocytes # (Manual) Eosinophils # (Manual) Basophils # (Manual) PT INR Fibrinogen dRVVT Confirm Interp Factor V Activity POC ABG pH POC ABG pCO2 POC ABG pO2 ABG pO2 ABG HCO3 ABG Base Excess ABG Hemoglobin Oxyhemoglobin Sodium 127 L Potassium Chloride 86.8 L Carbon Dioxide 20 L BUN 42 H Creatinine 3.5 H Glucose POC Glucose 65 L Lactic Acid Calcium 7.0 L Phosphorus Magnesium Direct Bilirubin AST ALT Alkaline Phosphatase Lactate Dehydrogenase Troponin T C-Reactive Protein Total Protein Albumin Prealbumin Triglycerides Cholesterol LDL Cholesterol Direct HDL Cholesterol Urine pH Urine WBC (Auto) Urine Creatinine Urine Total Protein Fluid Total Protein Vancomycin Trough Rheumatoid Factor Complement C4 Miscellaneous Test Crossmatch 10/01/16 10/01/16 10/02/16 17:39 23:32 00:59 WBC RBC Hgb Hct MCV MCH MCHC RDW Plt Count Lymph % (Auto) [place] % (Auto) Lymph # [place] # Baso # Seg Neutrophils % Seg Neuts % (Manual) Lymphocytes % (Manual) Monocytes % (Manual) Eosinophils % (Manual) Basophils % (Manual) Nucleated RBC % Seg Neutrophils # Seg Neutrophils # Man Lymphocytes # (Manual) Monocytes # (Manual) Eosinophils # (Manual) Basophils # (Manual) PT INR Fibrinogen dRVVT Confirm Interp Factor V Activity POC ABG pH POC ABG pCO2 POC ABG pO2 ABG pO2 ABG HCO3 ABG Base Excess ABG Hemoglobin Oxyhemoglobin Sodium Potassium Chloride Carbon Dioxide BUN Creatinine Glucose POC Glucose 107 H 52 L 145 H Lactic Acid Calcium Phosphorus Magnesium Direct Bilirubin AST ALT Alkaline Phosphatase Lactate Dehydrogenase Troponin T C-Reactive Protein Total Protein Albumin Prealbumin Triglycerides Cholesterol LDL Cholesterol Direct HDL Cholesterol Urine pH Urine WBC (Auto) Urine Creatinine Urine Total Protein Fluid Total Protein Vancomycin Trough Rheumatoid Factor Complement C4 Miscellaneous Test Crossmatch 10/02/16 10/02/16 10/02/16 10:30 10:50 10:50 WBC 14.7 H RBC 2.76 L Hgb 7.4 L Hct 23.6 L MCV MCH 27 L MCHC RDW 20.2 H Plt Count 79 L Lymph % (Auto) [place] % (Auto) Lymph # [place] # Baso # Seg Neutrophils % Seg Neuts % (Manual) 86.0 H Lymphocytes % (Manual) 6.0 L Monocytes % (Manual) Eosinophils % (Manual) Basophils % (Manual) Nucleated RBC % Seg Neutrophils # Seg Neutrophils # Man 12.6 H Lymphocytes # (Manual) 0.9 L Monocytes # (Manual) Eosinophils # (Manual) Basophils # (Manual) PT INR Fibrinogen dRVVT Confirm Interp Factor V Activity POC ABG pH 7.486 H POC ABG pCO2 30.1 L POC ABG pO2 108 H ABG pO2 ABG HCO3 ABG Base Excess ABG Hemoglobin Oxyhemoglobin Sodium 131 L Potassium 3.4 L Chloride 89.9 L Carbon Dioxide BUN 26 H Creatinine 2.6 H Glucose POC Glucose Lactic Acid Calcium 7.0 L Phosphorus Magnesium Direct Bilirubin AST ALT Alkaline Phosphatase Lactate Dehydrogenase Troponin T C-Reactive Protein Total Protein Albumin Prealbumin Triglycerides Cholesterol LDL Cholesterol Direct HDL Cholesterol Urine pH Urine WBC (Auto) Urine Creatinine Urine Total Protein Fluid Total Protein Vancomycin Trough Rheumatoid Factor Complement C4 Miscellaneous Test Crossmatch 10/02/16 10/03/16 10/03/16 23:45 00:45 05:10 WBC 12.9 H RBC 2.77 L Hgb 7.6 L Hct 23.7 L MCV MCH 27 L MCHC RDW 19.7 H Plt Count 89 L Lymph % (Auto) [place] % (Auto) Lymph # [place] # Baso # Seg Neutrophils % Seg Neuts % (Manual) Lymphocytes % (Manual) 8.0 L Monocytes % (Manual) Eosinophils % (Manual) Basophils % (Manual) Nucleated RBC % Seg Neutrophils # 11.9 H Seg Neutrophils # Man Lymphocytes # (Manual) 1.0 L Monocytes # (Manual) Eosinophils # (Manual) Basophils # (Manual) PT INR Fibrinogen dRVVT Confirm Interp Factor V Activity POC ABG pH POC ABG pCO2 POC ABG pO2 ABG pO2 ABG HCO3 ABG Base Excess ABG Hemoglobin Oxyhemoglobin Sodium Potassium Chloride Carbon Dioxide BUN Creatinine Glucose POC Glucose 55 L 199 H Lactic Acid Calcium Phosphorus Magnesium Direct Bilirubin AST ALT Alkaline Phosphatase Lactate Dehydrogenase Troponin T C-Reactive Protein Total Protein Albumin Prealbumin Triglycerides Cholesterol LDL Cholesterol Direct HDL Cholesterol Urine pH Urine WBC (Auto) Urine Creatinine Urine Total Protein Fluid Total Protein Vancomycin Trough Rheumatoid Factor Complement C4 Miscellaneous Test Crossmatch 10/03/16 10/03/16 10/03/16 05:10 12:14 13:18 WBC RBC Hgb Hct MCV MCH MCHC RDW Plt Count Lymph % (Auto) [place] % (Auto) Lymph # [place] # Baso # Seg Neutrophils % Seg Neuts % (Manual) Lymphocytes % (Manual) Monocytes % (Manual) Eosinophils % (Manual) Basophils % (Manual) Nucleated RBC % Seg Neutrophils # Seg Neutrophils # Man Lymphocytes # (Manual) Monocytes # (Manual) Eosinophils # (Manual) Basophils # (Manual) PT INR Fibrinogen dRVVT Confirm Interp Factor V Activity POC ABG pH POC ABG pCO2 POC ABG pO2 ABG pO2 ABG HCO3 ABG Base Excess ABG Hemoglobin Oxyhemoglobin Sodium 129 L Potassium 3.3 L Chloride 88.8 L Carbon Dioxide 20 L BUN 29 H Creatinine 2.8 H Glucose POC Glucose 68 L 127 H Lactic Acid Calcium 7.2 L Phosphorus Magnesium Direct Bilirubin AST ALT Alkaline Phosphatase Lactate Dehydrogenase Troponin T C-Reactive Protein Total Protein Albumin Prealbumin Triglycerides Cholesterol LDL Cholesterol Direct HDL Cholesterol Urine pH Urine WBC (Auto) Urine Creatinine Urine Total Protein Fluid Total Protein Vancomycin Trough Rheumatoid Factor Complement C4 Miscellaneous Test Crossmatch 10/03/16 10/03/16 10/03/16 14:42 18:21 19:09 WBC RBC Hgb Hct MCV MCH MCHC RDW Plt Count Lymph % (Auto) [place] % (Auto) Lymph # [place] # Baso # Seg Neutrophils % Seg Neuts % (Manual) Lymphocytes % (Manual) Monocytes % (Manual) Eosinophils % (Manual) Basophils % (Manual) Nucleated RBC % Seg Neutrophils # Seg Neutrophils # Man Lymphocytes # (Manual) Monocytes # (Manual) Eosinophils # (Manual) Basophils # (Manual) PT INR Fibrinogen dRVVT Confirm Interp Factor V Activity POC ABG pH 7.499 H POC ABG pCO2 28.4 L POC ABG pO2 44 L ABG pO2 ABG HCO3 ABG Base Excess ABG Hemoglobin Oxyhemoglobin Sodium Potassium Chloride Carbon Dioxide BUN Creatinine Glucose POC Glucose 64 L 205 H Lactic Acid Calcium Phosphorus Magnesium Direct Bilirubin AST ALT Alkaline Phosphatase Lactate Dehydrogenase Troponin T C-Reactive Protein Total Protein Albumin Prealbumin Triglycerides Cholesterol LDL Cholesterol Direct HDL Cholesterol Urine pH Urine WBC (Auto) Urine Creatinine Urine Total Protein Fluid Total Protein Vancomycin Trough Rheumatoid Factor Complement C4 Miscellaneous Test Crossmatch 10/03/16 10/04/16 10/04/16 23:33 04:18 06:30 WBC RBC 2.54 L Hgb 7.1 L Hct 21.7 L MCV MCH MCHC RDW 19.5 H Plt Count 76 L Lymph % (Auto) [place] % (Auto) Lymph # [place] # Baso # Seg Neutrophils % Seg Neuts % (Manual) 88.0 H Lymphocytes % (Manual) 6.0 L Monocytes % (Manual) Eosinophils % (Manual) Basophils % (Manual) Nucleated RBC % Seg Neutrophils # Seg Neutrophils # Man 8.8 H Lymphocytes # (Manual) 0.6 L Monocytes # (Manual) Eosinophils # (Manual) Basophils # (Manual) PT INR Fibrinogen dRVVT Confirm Interp Factor V Activity POC ABG pH 7.461 H POC ABG pCO2 33.6 L POC ABG pO2 211 H ABG pO2 ABG HCO3 ABG Base Excess ABG Hemoglobin Oxyhemoglobin Sodium Potassium Chloride Carbon Dioxide BUN Creatinine Glucose POC Glucose 136 H Lactic Acid Calcium Phosphorus Magnesium Direct Bilirubin AST ALT Alkaline Phosphatase Lactate Dehydrogenase Troponin T C-Reactive Protein Total Protein Albumin Prealbumin Triglycerides Cholesterol LDL Cholesterol Direct HDL Cholesterol Urine pH Urine WBC (Auto) Urine Creatinine Urine Total Protein Fluid Total Protein Vancomycin Trough Rheumatoid Factor Complement C4 Miscellaneous Test Crossmatch 10/04/16 10/04/16 10/04/16 06:30 11:45 17:54 WBC RBC Hgb Hct MCV MCH MCHC RDW Plt Count Lymph % (Auto) [place] % (Auto) Lymph # [place] # Baso # Seg Neutrophils % Seg Neuts % (Manual) Lymphocytes % (Manual) Monocytes % (Manual) Eosinophils % (Manual) Basophils % (Manual) Nucleated RBC % Seg Neutrophils # Seg Neutrophils # Man Lymphocytes # (Manual) Monocytes # (Manual) Eosinophils # (Manual) Basophils # (Manual) PT INR Fibrinogen dRVVT Confirm Interp Factor V Activity POC ABG pH POC ABG pCO2 POC ABG pO2 ABG pO2 ABG HCO3 ABG Base Excess ABG Hemoglobin Oxyhemoglobin Sodium 128 L Potassium Chloride 87.4 L Carbon Dioxide 20 L BUN 34 H Creatinine 2.9 H Glucose 127 H POC Glucose 158 H 160 H Lactic Acid Calcium 7.4 L Phosphorus Magnesium Direct Bilirubin AST ALT Alkaline Phosphatase Lactate Dehydrogenase Troponin T C-Reactive Protein Total Protein Albumin Prealbumin Triglycerides Cholesterol LDL Cholesterol Direct HDL Cholesterol Urine pH Urine WBC (Auto) Urine Creatinine Urine Total Protein Fluid Total Protein Vancomycin Trough Rheumatoid Factor Complement C4 Miscellaneous Test Crossmatch 10/04/16 10/05/16 10/05/16 23:25 04:30 05:00 WBC RBC 2.64 L Hgb 7.5 L Hct 22.6 L MCV MCH MCHC RDW 19.3 H Plt Count 80 L Lymph % (Auto) [place] % (Auto) Lymph # [place] # Baso # Seg Neutrophils % Seg Neuts % (Manual) Lymphocytes % (Manual) 12.0 L Monocytes % (Manual) Eosinophils % (Manual) Basophils % (Manual) Nucleated RBC % Seg Neutrophils # Seg Neutrophils # Man Lymphocytes # (Manual) Monocytes # (Manual) Eosinophils # (Manual) Basophils # (Manual) PT INR Fibrinogen dRVVT Confirm Interp Factor V Activity POC ABG pH 7.475 H POC ABG pCO2 33.3 L POC ABG pO2 140 H ABG pO2 ABG HCO3 ABG Base Excess ABG Hemoglobin Oxyhemoglobin Sodium Potassium Chloride Carbon Dioxide BUN Creatinine Glucose POC Glucose 141 H Lactic Acid Calcium Phosphorus Magnesium Direct Bilirubin AST ALT Alkaline Phosphatase Lactate Dehydrogenase Troponin T C-Reactive Protein Total Protein Albumin Prealbumin Triglycerides Cholesterol LDL Cholesterol Direct HDL Cholesterol Urine pH Urine WBC (Auto) Urine Creatinine Urine Total Protein Fluid Total Protein Vancomycin Trough Rheumatoid Factor Complement C4 Miscellaneous Test Crossmatch 10/05/16 10/05/16 10/05/16 05:00 05:09 12:58 WBC RBC Hgb Hct MCV MCH MCHC RDW Plt Count Lymph % (Auto) [place] % (Auto) Lymph # [place] # Baso # Seg Neutrophils % Seg Neuts % (Manual) Lymphocytes % (Manual) Monocytes % (Manual) Eosinophils % (Manual) Basophils % (Manual) Nucleated RBC % Seg Neutrophils # Seg Neutrophils # Man Lymphocytes # (Manual) Monocytes # (Manual) Eosinophils # (Manual) Basophils # (Manual) PT INR Fibrinogen dRVVT Confirm Interp Factor V Activity POC ABG pH POC ABG pCO2 POC ABG pO2 ABG pO2 ABG HCO3 ABG Base Excess ABG Hemoglobin Oxyhemoglobin Sodium 131 L Potassium Chloride 94.0 L Carbon Dioxide 20 L BUN 22 H Creatinine 2.0 H Glucose 123 H POC Glucose 166 H 179 H Lactic Acid Calcium 7.7 L Phosphorus 2.20 L D Magnesium Direct Bilirubin AST ALT Alkaline Phosphatase Lactate Dehydrogenase Troponin T C-Reactive Protein Total Protein Albumin Prealbumin Triglycerides Cholesterol LDL Cholesterol Direct HDL Cholesterol Urine pH Urine WBC (Auto) Urine Creatinine Urine Total Protein Fluid Total Protein Vancomycin Trough Rheumatoid Factor Complement C4 Miscellaneous Test Crossmatch 10/05/16 10/05/16 10/05/16 15:50 18:53 23:12 WBC RBC Hgb Hct MCV MCH MCHC RDW Plt Count Lymph % (Auto) [place] % (Auto) Lymph # [place] # Baso # Seg Neutrophils % Seg Neuts % (Manual) Lymphocytes % (Manual) Monocytes % (Manual) Eosinophils % (Manual) Basophils % (Manual) Nucleated RBC % Seg Neutrophils # Seg Neutrophils # Man Lymphocytes # (Manual) Monocytes # (Manual) Eosinophils # (Manual) Basophils # (Manual) PT INR Fibrinogen dRVVT Confirm Interp Factor V Activity POC ABG pH POC ABG pCO2 POC ABG pO2 ABG pO2 ABG HCO3 ABG Base Excess ABG Hemoglobin Oxyhemoglobin Sodium Potassium Chloride Carbon Dioxide BUN Creatinine Glucose POC Glucose 150 H 164 H Lactic Acid Calcium Phosphorus Magnesium Direct Bilirubin AST ALT Alkaline Phosphatase Lactate Dehydrogenase Troponin T C-Reactive Protein Total Protein Albumin Prealbumin Triglycerides Cholesterol LDL Cholesterol Direct HDL Cholesterol Urine pH Urine WBC (Auto) Urine Creatinine Urine Total Protein Fluid Total Protein Vancomycin Trough Rheumatoid Factor Complement C4 Miscellaneous Test Crossmatch See Detail 10/06/16 10/06/16 10/06/16 03:50 03:50 04:53 WBC RBC 3.00 L Hgb 8.6 L Hct 25.8 L MCV MCH MCHC RDW 17.9 H Plt Count 65 L Lymph % (Auto) [place] % (Auto) Lymph # [place] # Baso # Seg Neutrophils % Seg Neuts % (Manual) 30.0 L Lymphocytes % (Manual) 5.0 L Monocytes % (Manual) Eosinophils % (Manual) Basophils % (Manual) Nucleated RBC % Seg Neutrophils # Seg Neutrophils # Man Lymphocytes # (Manual) 0.4 L Monocytes # (Manual) Eosinophils # (Manual) Basophils # (Manual) PT INR Fibrinogen dRVVT Confirm Interp Factor V Activity POC ABG pH 7.310 L POC ABG pCO2 49.0 H POC ABG pO2 ABG pO2 ABG HCO3 ABG Base Excess ABG Hemoglobin Oxyhemoglobin Sodium 133 L Potassium Chloride 95.9 L Carbon Dioxide BUN 26 H Creatinine 2.0 H Glucose 116 H POC Glucose Lactic Acid Calcium 7.8 L Phosphorus Magnesium Direct Bilirubin AST ALT Alkaline Phosphatase Lactate Dehydrogenase Troponin T C-Reactive Protein Total Protein Albumin Prealbumin Triglycerides Cholesterol LDL Cholesterol Direct HDL Cholesterol Urine pH Urine WBC (Auto) Urine Creatinine Urine Total Protein Fluid Total Protein Vancomycin Trough Rheumatoid Factor Complement C4 Miscellaneous Test Crossmatch 10/06/16 10/06/16 10/06/16 05:23 11:52 18:34 WBC RBC Hgb Hct MCV MCH MCHC RDW Plt Count Lymph % (Auto) [place] % (Auto) Lymph # [place] # Baso # Seg Neutrophils % Seg Neuts % (Manual) Lymphocytes % (Manual) Monocytes % (Manual) Eosinophils % (Manual) Basophils % (Manual) Nucleated RBC % Seg Neutrophils # Seg Neutrophils # Man Lymphocytes # (Manual) Monocytes # (Manual) Eosinophils # (Manual) Basophils # (Manual) PT INR Fibrinogen dRVVT Confirm Interp Factor V Activity POC ABG pH POC ABG pCO2 POC ABG pO2 ABG pO2 ABG HCO3 ABG Base Excess ABG Hemoglobin Oxyhemoglobin Sodium Potassium Chloride Carbon Dioxide BUN Creatinine Glucose POC Glucose 126 H 116 H 129 H Lactic Acid Calcium Phosphorus Magnesium Direct Bilirubin AST ALT Alkaline Phosphatase Lactate Dehydrogenase Troponin T C-Reactive Protein Total Protein Albumin Prealbumin Triglycerides Cholesterol LDL Cholesterol Direct HDL Cholesterol Urine pH Urine WBC (Auto) Urine Creatinine Urine Total Protein Fluid Total Protein Vancomycin Trough Rheumatoid Factor Complement C4 Miscellaneous Test Crossmatch 10/07/16 10/07/16 10/07/16 03:45 05:00 10:00 WBC 17.0 H RBC 2.68 L Hgb 7.3 L Hct 25.3 L MCV MCH 27 L MCHC 29 L RDW 19.6 H Plt Count 74 L Lymph % (Auto) [place] % (Auto) Lymph # [place] # Baso # Seg Neutrophils % Seg Neuts % (Manual) Lymphocytes % (Manual) 12.0 L Monocytes % (Manual) Eosinophils % (Manual) Basophils % (Manual) Nucleated RBC % 4.0 H Seg Neutrophils # Seg Neutrophils # Man 10.7 H Lymphocytes # (Manual) Monocytes # (Manual) Eosinophils # (Manual) Basophils # (Manual) PT INR Fibrinogen dRVVT Confirm Interp Factor V Activity POC ABG pH POC ABG pCO2 POC ABG pO2 ABG pO2 ABG HCO3 ABG Base Excess ABG Hemoglobin Oxyhemoglobin Sodium 130 L Potassium 3.2 L Chloride 93.9 L Carbon Dioxide 20 L BUN 44 H Creatinine 2.7 H Glucose 129 H POC Glucose Lactic Acid Calcium 7.4 L Phosphorus Magnesium Direct Bilirubin AST ALT 6 L Alkaline Phosphatase 195 H Lactate Dehydrogenase Troponin T C-Reactive Protein Total Protein 4.9 L Albumin 1.0 L Prealbumin Triglycerides Cholesterol LDL Cholesterol Direct HDL Cholesterol Urine pH Urine WBC (Auto) Urine Creatinine Urine Total Protein Fluid Total Protein Vancomycin Trough Rheumatoid Factor Complement C4 Miscellaneous Test Flexitest 1 H Crossmatch 10/07/16 10/07/16 10/07/16 10:00 11:24 18:10 WBC RBC Hgb Hct MCV MCH MCHC RDW Plt Count Lymph % (Auto) [place] % (Auto) Lymph # [place] # Baso # Seg Neutrophils % Seg Neuts % (Manual) Lymphocytes % (Manual) Monocytes % (Manual) Eosinophils % (Manual) Basophils % (Manual) Nucleated RBC % Seg Neutrophils # Seg Neutrophils # Man Lymphocytes # (Manual) Monocytes # (Manual) Eosinophils # (Manual) Basophils # (Manual) PT INR Fibrinogen dRVVT Confirm Interp Factor V Activity POC ABG pH POC ABG pCO2 POC ABG pO2 ABG pO2 ABG HCO3 ABG Base Excess ABG Hemoglobin Oxyhemoglobin Sodium Potassium Chloride Carbon Dioxide BUN Creatinine Glucose POC Glucose 116 H 130 H Lactic Acid Calcium Phosphorus Magnesium Direct Bilirubin AST ALT Alkaline Phosphatase Lactate Dehydrogenase Troponin T C-Reactive Protein 19.40 H Total Protein Albumin Prealbumin Triglycerides Cholesterol LDL Cholesterol Direct HDL Cholesterol Urine pH Urine WBC (Auto) Urine Creatinine Urine Total Protein Fluid Total Protein Vancomycin Trough Rheumatoid Factor Complement C4 Miscellaneous Test Crossmatch 10/07/16 10/08/16 10/08/16 18:30 00:00 04:00 WBC RBC Hgb Hct MCV MCH MCHC RDW Plt Count Lymph % (Auto) [place] % (Auto) Lymph # [place] # Baso # Seg Neutrophils % Seg Neuts % (Manual) Lymphocytes % (Manual) Monocytes % (Manual) Eosinophils % (Manual) Basophils % (Manual) Nucleated RBC % Seg Neutrophils # Seg Neutrophils # Man Lymphocytes # (Manual) Monocytes # (Manual) Eosinophils # (Manual) Basophils # (Manual) PT INR Fibrinogen dRVVT Confirm Interp Factor V Activity POC ABG pH POC ABG pCO2 POC ABG pO2 ABG pO2 ABG HCO3 ABG Base Excess ABG Hemoglobin Oxyhemoglobin Sodium 132 L Potassium 3.3 L Chloride 93.6 L Carbon Dioxide 17 L BUN 59 H Creatinine 2.7 H Glucose 121 H POC Glucose 122 H Lactic Acid Calcium 7.6 L Phosphorus Magnesium Direct Bilirubin AST ALT Alkaline Phosphatase Lactate Dehydrogenase Troponin T C-Reactive Protein Total Protein Albumin Prealbumin Triglycerides Cholesterol LDL Cholesterol Direct HDL Cholesterol Urine pH Urine WBC (Auto) > 182.0 H Urine Creatinine Urine Total Protein Fluid Total Protein Vancomycin Trough Rheumatoid Factor Complement C4 Miscellaneous Test Crossmatch 10/08/16 10/08/16 10/08/16 04:30 05:30 11:51 WBC RBC 5.15 H Hgb 14.4 H D Hct 44.5 H D MCV MCH MCHC RDW 19.5 H Plt Count 56 L Lymph % (Auto) [place] % (Auto) Lymph # [place] # Baso # Seg Neutrophils % Seg Neuts % (Manual) 24.0 L Lymphocytes % (Manual) 8.0 L Monocytes % (Manual) Eosinophils % (Manual) Basophils % (Manual) Nucleated RBC % 9.0 H Seg Neutrophils # Seg Neutrophils # Man Lymphocytes # (Manual) 0.7 L Monocytes # (Manual) Eosinophils # (Manual) Basophils # (Manual) PT INR Fibrinogen dRVVT Confirm Interp Factor V Activity POC ABG pH POC ABG pCO2 POC ABG pO2 ABG pO2 ABG HCO3 ABG Base Excess ABG Hemoglobin Oxyhemoglobin Sodium Potassium Chloride Carbon Dioxide BUN Creatinine Glucose POC Glucose 125 H 150 H Lactic Acid Calcium Phosphorus Magnesium Direct Bilirubin AST ALT Alkaline Phosphatase Lactate Dehydrogenase Troponin T C-Reactive Protein Total Protein Albumin Prealbumin Triglycerides Cholesterol LDL Cholesterol Direct HDL Cholesterol Urine pH Urine WBC (Auto) Urine Creatinine Urine Total Protein Fluid Total Protein Vancomycin Trough Rheumatoid Factor Complement C4 Miscellaneous Test Crossmatch 10/08/16 10/08/16 10/08/16 12:49 17:07 19:30 WBC RBC Hgb 7.1 L D Hct 22.4 L D MCV MCH MCHC RDW Plt Count Lymph % (Auto) [place] % (Auto) Lymph # [place] # Baso # Seg Neutrophils % Seg Neuts % (Manual) Lymphocytes % (Manual) Monocytes % (Manual) Eosinophils % (Manual) Basophils % (Manual) Nucleated RBC % Seg Neutrophils # Seg Neutrophils # Man Lymphocytes # (Manual) Monocytes # (Manual) Eosinophils # (Manual) Basophils # (Manual) PT INR Fibrinogen dRVVT Confirm Interp Factor V Activity POC ABG pH POC ABG pCO2 28.2 L POC ABG pO2 111 H ABG pO2 ABG HCO3 ABG Base Excess ABG Hemoglobin Oxyhemoglobin Sodium Potassium Chloride Carbon Dioxide BUN Creatinine Glucose POC Glucose 145 H Lactic Acid Calcium Phosphorus Magnesium Direct Bilirubin AST ALT Alkaline Phosphatase Lactate Dehydrogenase Troponin T C-Reactive Protein Total Protein Albumin Prealbumin Triglycerides Cholesterol LDL Cholesterol Direct HDL Cholesterol Urine pH Urine WBC (Auto) Urine Creatinine Urine Total Protein Fluid Total Protein Vancomycin Trough Rheumatoid Factor Complement C4 Miscellaneous Test Crossmatch 10/08/16 10/09/16 10/09/16 19:30 03:45 03:45 WBC 12.6 H RBC 2.36 L Hgb 6.7 L Hct 21.1 L MCV MCH MCHC RDW 19.5 H Plt Count 75 L Lymph % (Auto) [place] % (Auto) Lymph # [place] # Baso # Seg Neutrophils % Seg Neuts % (Manual) Lymphocytes % (Manual) Monocytes % (Manual) 10.0 H Eosinophils % (Manual) Basophils % (Manual) Nucleated RBC % 3.0 H Seg Neutrophils # Seg Neutrophils # Man Lymphocytes # (Manual) Monocytes # (Manual) 1.3 H Eosinophils # (Manual) Basophils # (Manual) PT 18.0 H INR 1.41 H Fibrinogen dRVVT Confirm Interp Factor V Activity POC ABG pH POC ABG pCO2 POC ABG pO2 ABG pO2 ABG HCO3 ABG Base Excess ABG Hemoglobin Oxyhemoglobin Sodium 135 L Potassium Chloride Carbon Dioxide 17 L BUN 81 H Creatinine 3.2 H Glucose 109 H POC Glucose Lactic Acid Calcium 7.4 L Phosphorus 4.60 H D Magnesium Direct Bilirubin AST ALT Alkaline Phosphatase Lactate Dehydrogenase Troponin T C-Reactive Protein Total Protein Albumin Prealbumin Triglycerides Cholesterol LDL Cholesterol Direct HDL Cholesterol Urine pH Urine WBC (Auto) Urine Creatinine Urine Total Protein Fluid Total Protein Vancomycin Trough Rheumatoid Factor Complement C4 Miscellaneous Test Crossmatch 10/09/16 10/09/16 10/09/16 03:45 05:14 07:20 WBC RBC Hgb Hct MCV MCH MCHC RDW Plt Count Lymph % (Auto) [place] % (Auto) Lymph # [place] # Baso # Seg Neutrophils % Seg Neuts % (Manual) Lymphocytes % (Manual) Monocytes % (Manual) Eosinophils % (Manual) Basophils % (Manual) Nucleated RBC % Seg Neutrophils # Seg Neutrophils # Man Lymphocytes # (Manual) Monocytes # (Manual) Eosinophils # (Manual) Basophils # (Manual) PT 19.0 H INR 1.51 H Fibrinogen dRVVT Confirm Interp Factor V Activity POC ABG pH POC ABG pCO2 POC ABG pO2 ABG pO2 ABG HCO3 ABG Base Excess ABG Hemoglobin Oxyhemoglobin Sodium Potassium Chloride Carbon Dioxide BUN Creatinine Glucose POC Glucose 151 H Lactic Acid Calcium Phosphorus Magnesium Direct Bilirubin AST ALT Alkaline Phosphatase Lactate Dehydrogenase Troponin T C-Reactive Protein Total Protein Albumin Prealbumin Triglycerides Cholesterol LDL Cholesterol Direct HDL Cholesterol Urine pH Urine WBC (Auto) Urine Creatinine Urine Total Protein Fluid Total Protein Vancomycin Trough Rheumatoid Factor Complement C4 Miscellaneous Test Crossmatch See Detail 10/09/16 10/09/16 10/09/16 11:46 16:20 16:43 WBC RBC Hgb 7.2 L Hct 22.2 L MCV MCH MCHC RDW Plt Count Lymph % (Auto) [place] % (Auto) Lymph # [place] # Baso # Seg Neutrophils % Seg Neuts % (Manual) Lymphocytes % (Manual) Monocytes % (Manual) Eosinophils % (Manual) Basophils % (Manual) Nucleated RBC % Seg Neutrophils # Seg Neutrophils # Man Lymphocytes # (Manual) Monocytes # (Manual) Eosinophils # (Manual) Basophils # (Manual) PT INR Fibrinogen dRVVT Confirm Interp Factor V Activity POC ABG pH POC ABG pCO2 POC ABG pO2 ABG pO2 ABG HCO3 ABG Base Excess ABG Hemoglobin Oxyhemoglobin Sodium Potassium Chloride Carbon Dioxide BUN Creatinine Glucose POC Glucose 133 H 141 H Lactic Acid Calcium Phosphorus Magnesium Direct Bilirubin AST ALT Alkaline Phosphatase Lactate Dehydrogenase Troponin T C-Reactive Protein Total Protein Albumin Prealbumin Triglycerides Cholesterol LDL Cholesterol Direct HDL Cholesterol Urine pH Urine WBC (Auto) Urine Creatinine Urine Total Protein Fluid Total Protein Vancomycin Trough Rheumatoid Factor Complement C4 Miscellaneous Test Crossmatch 10/10/16 10/10/16 10/10/16 05:00 05:00 11:19 WBC 18.5 H RBC 2.19 L Hgb 6.4 L Hct 19.6 L* MCV MCH MCHC RDW 19.3 H Plt Count 93 L Lymph % (Auto) [place] % (Auto) Lymph # [place] # Baso # Seg Neutrophils % Seg Neuts % (Manual) Lymphocytes % (Manual) 10.0 L Monocytes % (Manual) Eosinophils % (Manual) Basophils % (Manual) Nucleated RBC % 4.0 H Seg Neutrophils # Seg Neutrophils # Man 11.3 H Lymphocytes # (Manual) Monocytes # (Manual) Eosinophils # (Manual) Basophils # (Manual) PT INR Fibrinogen dRVVT Confirm Interp Factor V Activity POC ABG pH POC ABG pCO2 POC ABG pO2 ABG pO2 ABG HCO3 ABG Base Excess ABG Hemoglobin Oxyhemoglobin Sodium Potassium 5.7 H D Chloride Carbon Dioxide 16 L BUN 94 H Creatinine 3.1 H Glucose 131 H POC Glucose 153 H Lactic Acid Calcium 8.2 L Phosphorus 5.10 H Magnesium 2.40 H Direct Bilirubin 0.3 H AST ALT < 5 L Alkaline Phosphatase 319 H Lactate Dehydrogenase Troponin T C-Reactive Protein Total Protein 5.1 L Albumin 1.0 L Prealbumin Triglycerides Cholesterol LDL Cholesterol Direct HDL Cholesterol Urine pH Urine WBC (Auto) Urine Creatinine Urine Total Protein Fluid Total Protein Vancomycin Trough Rheumatoid Factor Complement C4 Miscellaneous Test Crossmatch 10/10/16 10/10/16 10/11/16 17:50 23:30 04:15 WBC RBC Hgb Hct MCV MCH MCHC RDW Plt Count Lymph % (Auto) [place] % (Auto) Lymph # [place] # Baso # Seg Neutrophils % Seg Neuts % (Manual) Lymphocytes % (Manual) Monocytes % (Manual) Eosinophils % (Manual) Basophils % (Manual) Nucleated RBC % Seg Neutrophils # Seg Neutrophils # Man Lymphocytes # (Manual) Monocytes # (Manual) Eosinophils # (Manual) Basophils # (Manual) PT INR Fibrinogen dRVVT Confirm Interp Factor V Activity POC ABG pH POC ABG pCO2 POC ABG pO2 ABG pO2 ABG HCO3 ABG Base Excess ABG Hemoglobin Oxyhemoglobin Sodium Potassium Chloride 96.4 L Carbon Dioxide 21 L BUN 57 H Creatinine 2.1 H Glucose 151 H POC Glucose 146 H 141 H Lactic Acid Calcium 8.3 L Phosphorus Magnesium Direct Bilirubin AST ALT Alkaline Phosphatase Lactate Dehydrogenase Troponin T C-Reactive Protein Total Protein Albumin Prealbumin Triglycerides Cholesterol LDL Cholesterol Direct HDL Cholesterol Urine pH Urine WBC (Auto) Urine Creatinine Urine Total Protein Fluid Total Protein Vancomycin Trough Rheumatoid Factor Complement C4 Miscellaneous Test Crossmatch 10/11/16 10/11/16 10/11/16 04:15 04:15 05:30 WBC 28.3 H RBC 3.12 L Hgb 9.3 L Hct 28.7 L D MCV MCH MCHC RDW 17.7 H Plt Count 128 L Lymph % (Auto) [place] % (Auto) Lymph # [place] # Baso # Seg Neutrophils % Seg Neuts % (Manual) Lymphocytes % (Manual) Monocytes % (Manual) Eosinophils % (Manual) Basophils % (Manual) Nucleated RBC % Seg Neutrophils # Seg Neutrophils # Man Lymphocytes # (Manual) Monocytes # (Manual) Eosinophils # (Manual) Basophils # (Manual) PT INR Fibrinogen dRVVT Confirm Interp Factor V Activity POC ABG pH POC ABG pCO2 POC ABG pO2 ABG pO2 ABG HCO3 ABG Base Excess ABG Hemoglobin Oxyhemoglobin Sodium Potassium Chloride Carbon Dioxide BUN Creatinine Glucose POC Glucose 167 H Lactic Acid Calcium Phosphorus Magnesium Direct Bilirubin AST ALT Alkaline Phosphatase Lactate Dehydrogenase Troponin T C-Reactive Protein 15.80 H Total Protein Albumin Prealbumin Triglycerides Cholesterol LDL Cholesterol Direct HDL Cholesterol Urine pH Urine WBC (Auto) Urine Creatinine Urine Total Protein Fluid Total Protein Vancomycin Trough Rheumatoid Factor Complement C4 Miscellaneous Test Crossmatch 10/11/16 10/11/16 10/11/16 11:40 15:49 23:57 WBC RBC Hgb Hct MCV MCH MCHC RDW Plt Count Lymph % (Auto) [place] % (Auto) Lymph # [place] # Baso # Seg Neutrophils % Seg Neuts % (Manual) Lymphocytes % (Manual) Monocytes % (Manual) Eosinophils % (Manual) Basophils % (Manual) Nucleated RBC % Seg Neutrophils # Seg Neutrophils # Man Lymphocytes # (Manual) Monocytes # (Manual) Eosinophils # (Manual) Basophils # (Manual) PT INR Fibrinogen dRVVT Confirm Interp Factor V Activity POC ABG pH POC ABG pCO2 POC ABG pO2 ABG pO2 ABG HCO3 ABG Base Excess ABG Hemoglobin Oxyhemoglobin Sodium Potassium Chloride Carbon Dioxide BUN Creatinine Glucose POC Glucose 139 H 168 H 161 H Lactic Acid Calcium Phosphorus Magnesium Direct Bilirubin AST ALT Alkaline Phosphatase Lactate Dehydrogenase Troponin T C-Reactive Protein Total Protein Albumin Prealbumin Triglycerides Cholesterol LDL Cholesterol Direct HDL Cholesterol Urine pH Urine WBC (Auto) Urine Creatinine Urine Total Protein Fluid Total Protein Vancomycin Trough Rheumatoid Factor Complement C4 Miscellaneous Test Crossmatch 10/12/16 10/12/16 10/12/16 04:40 04:40 05:44 WBC 22.5 H RBC 2.88 L Hgb 8.8 L Hct 26.8 L MCV MCH MCHC RDW 17.8 H Plt Count Lymph % (Auto) [place] % (Auto) Lymph # [place] # Baso # Seg Neutrophils % Seg Neuts % (Manual) Lymphocytes % (Manual) Monocytes % (Manual) Eosinophils % (Manual) Basophils % (Manual) Nucleated RBC % Seg Neutrophils # Seg Neutrophils # Man Lymphocytes # (Manual) Monocytes # (Manual) Eosinophils # (Manual) Basophils # (Manual) PT INR Fibrinogen dRVVT Confirm Interp Factor V Activity POC ABG pH POC ABG pCO2 POC ABG pO2 ABG pO2 ABG HCO3 ABG Base Excess ABG Hemoglobin Oxyhemoglobin Sodium 134 L Potassium Chloride 93.0 L Carbon Dioxide BUN 74 H Creatinine 2.5 H Glucose 137 H POC Glucose 158 H Lactic Acid Calcium 8.2 L Phosphorus Magnesium Direct Bilirubin AST ALT Alkaline Phosphatase Lactate Dehydrogenase Troponin T C-Reactive Protein Total Protein Albumin Prealbumin Triglycerides Cholesterol LDL Cholesterol Direct HDL Cholesterol Urine pH Urine WBC (Auto) Urine Creatinine Urine Total Protein Fluid Total Protein Vancomycin Trough Rheumatoid Factor Complement C4 Miscellaneous Test Crossmatch 10/12/16 10/12/16 10/12/16 12:27 18:18 23:46 WBC RBC Hgb Hct MCV MCH MCHC RDW Plt Count Lymph % (Auto) [place] % (Auto) Lymph # [place] # Baso # Seg Neutrophils % Seg Neuts % (Manual) Lymphocytes % (Manual) Monocytes % (Manual) Eosinophils % (Manual) Basophils % (Manual) Nucleated RBC % Seg Neutrophils # Seg Neutrophils # Man Lymphocytes # (Manual) Monocytes # (Manual) Eosinophils # (Manual) Basophils # (Manual) PT INR Fibrinogen dRVVT Confirm Interp Factor V Activity POC ABG pH POC ABG pCO2 POC ABG pO2 ABG pO2 ABG HCO3 ABG Base Excess ABG Hemoglobin Oxyhemoglobin Sodium Potassium Chloride Carbon Dioxide BUN Creatinine Glucose POC Glucose 153 H 140 H 150 H Lactic Acid Calcium Phosphorus Magnesium Direct Bilirubin AST ALT Alkaline Phosphatase Lactate Dehydrogenase Troponin T C-Reactive Protein Total Protein Albumin Prealbumin Triglycerides Cholesterol LDL Cholesterol Direct HDL Cholesterol Urine pH Urine WBC (Auto) Urine Creatinine Urine Total Protein Fluid Total Protein Vancomycin Trough Rheumatoid Factor Complement C4 Miscellaneous Test Crossmatch 10/13/16 10/13/16 10/13/16 06:22 09:20 12:29 WBC RBC Hgb Hct MCV MCH MCHC RDW Plt Count Lymph % (Auto) [place] % (Auto) Lymph # [place] # Baso # Seg Neutrophils % Seg Neuts % (Manual) Lymphocytes % (Manual) Monocytes % (Manual) Eosinophils % (Manual) Basophils % (Manual) Nucleated RBC % Seg Neutrophils # Seg Neutrophils # Man Lymphocytes # (Manual) Monocytes # (Manual) Eosinophils # (Manual) Basophils # (Manual) PT INR Fibrinogen dRVVT Confirm Interp Factor V Activity POC ABG pH POC ABG pCO2 POC ABG pO2 ABG pO2 ABG HCO3 ABG Base Excess ABG Hemoglobin Oxyhemoglobin Sodium Potassium Chloride Carbon Dioxide BUN Creatinine Glucose POC Glucose 165 H 193 H Lactic Acid Calcium Phosphorus Magnesium Direct Bilirubin AST ALT Alkaline Phosphatase Lactate Dehydrogenase Troponin T C-Reactive Protein Total Protein Albumin Prealbumin Triglycerides Cholesterol LDL Cholesterol Direct HDL Cholesterol Urine pH Urine WBC (Auto) Urine Creatinine Urine Total Protein Fluid Total Protein Vancomycin Trough Rheumatoid Factor Complement C4 Miscellaneous Test Flexitest 1 H Crossmatch 10/13/16 10/13/16 10/13/16 18:09 Unknown Unknown WBC 23.4 H RBC 2.83 L Hgb 8.7 L Hct 26.1 L MCV MCH MCHC RDW 18.1 H Plt Count Lymph % (Auto) [place] % (Auto) Lymph # [place] # Baso # Seg Neutrophils % Seg Neuts % (Manual) Lymphocytes % (Manual) Monocytes % (Manual) Eosinophils % (Manual) Basophils % (Manual) Nucleated RBC % Seg Neutrophils # Seg Neutrophils # Man Lymphocytes # (Manual) Monocytes # (Manual) Eosinophils # (Manual) Basophils # (Manual) PT INR Fibrinogen dRVVT Confirm Interp Factor V Activity POC ABG pH POC ABG pCO2 POC ABG pO2 ABG pO2 ABG HCO3 ABG Base Excess ABG Hemoglobin Oxyhemoglobin Sodium Potassium Chloride 95.8 L Carbon Dioxide BUN 82 H Creatinine 2.6 H Glucose 152 H POC Glucose 166 H Lactic Acid Calcium Phosphorus Magnesium Direct Bilirubin AST ALT Alkaline Phosphatase Lactate Dehydrogenase Troponin T C-Reactive Protein Total Protein Albumin Prealbumin Triglycerides Cholesterol LDL Cholesterol Direct HDL Cholesterol Urine pH Urine WBC (Auto) Urine Creatinine Urine Total Protein Fluid Total Protein Vancomycin Trough Rheumatoid Factor Complement C4 Miscellaneous Test Crossmatch 10/14/16 10/14/16 10/14/16 05:38 06:35 08:10 WBC 20.7 H RBC 2.81 L Hgb 8.4 L Hct 27.2 L MCV MCH MCHC RDW 19.4 H Plt Count Lymph % (Auto) [place] % (Auto) Lymph # [place] # Baso # Seg Neutrophils % Seg Neuts % (Manual) Lymphocytes % (Manual) Monocytes % (Manual) Eosinophils % (Manual) Basophils % (Manual) Nucleated RBC % Seg Neutrophils # Seg Neutrophils # Man Lymphocytes # (Manual) Monocytes # (Manual) Eosinophils # (Manual) Basophils # (Manual) PT INR Fibrinogen dRVVT Confirm Interp Factor V Activity POC ABG pH POC ABG pCO2 POC ABG pO2 ABG pO2 ABG HCO3 ABG Base Excess ABG Hemoglobin Oxyhemoglobin Sodium Potassium Chloride Carbon Dioxide BUN 58 H Creatinine 1.9 H Glucose 169 H POC Glucose 195 H Lactic Acid Calcium Phosphorus Magnesium Direct Bilirubin AST ALT Alkaline Phosphatase Lactate Dehydrogenase Troponin T C-Reactive Protein Total Protein Albumin Prealbumin Triglycerides Cholesterol LDL Cholesterol Direct HDL Cholesterol Urine pH Urine WBC (Auto) Urine Creatinine Urine Total Protein Fluid Total Protein Vancomycin Trough Rheumatoid Factor Complement C4 Miscellaneous Test Crossmatch 10/14/16 10/14/16 10/14/16 11:44 17:13 23:28 WBC RBC Hgb Hct MCV MCH MCHC RDW Plt Count Lymph % (Auto) [place] % (Auto) Lymph # [place] # Baso # Seg Neutrophils % Seg Neuts % (Manual) Lymphocytes % (Manual) Monocytes % (Manual) Eosinophils % (Manual) Basophils % (Manual) Nucleated RBC % Seg Neutrophils # Seg Neutrophils # Man Lymphocytes # (Manual) Monocytes # (Manual) Eosinophils # (Manual) Basophils # (Manual) PT INR Fibrinogen dRVVT Confirm Interp Factor V Activity POC ABG pH POC ABG pCO2 POC ABG pO2 ABG pO2 ABG HCO3 ABG Base Excess ABG Hemoglobin Oxyhemoglobin Sodium Potassium Chloride Carbon Dioxide BUN Creatinine Glucose POC Glucose 174 H 121 H 151 H Lactic Acid Calcium Phosphorus Magnesium Direct Bilirubin AST ALT Alkaline Phosphatase Lactate Dehydrogenase Troponin T C-Reactive Protein Total Protein Albumin Prealbumin Triglycerides Cholesterol LDL Cholesterol Direct HDL Cholesterol Urine pH Urine WBC (Auto) Urine Creatinine Urine Total Protein Fluid Total Protein Vancomycin Trough Rheumatoid Factor Complement C4 Miscellaneous Test Crossmatch 10/15/16 10/15/16 10/15/16 05:06 12:26 17:48 WBC RBC Hgb Hct MCV MCH MCHC RDW Plt Count Lymph % (Auto) [place] % (Auto) Lymph # [place] # Baso # Seg Neutrophils % Seg Neuts % (Manual) Lymphocytes % (Manual) Monocytes % (Manual) Eosinophils % (Manual) Basophils % (Manual) Nucleated RBC % Seg Neutrophils # Seg Neutrophils # Man Lymphocytes # (Manual) Monocytes # (Manual) Eosinophils # (Manual) Basophils # (Manual) PT INR Fibrinogen dRVVT Confirm Interp Factor V Activity POC ABG pH POC ABG pCO2 POC ABG pO2 ABG pO2 ABG HCO3 ABG Base Excess ABG Hemoglobin Oxyhemoglobin Sodium Potassium Chloride Carbon Dioxide BUN Creatinine Glucose POC Glucose 151 H 149 H 153 H Lactic Acid Calcium Phosphorus Magnesium Direct Bilirubin AST ALT Alkaline Phosphatase Lactate Dehydrogenase Troponin T C-Reactive Protein Total Protein Albumin Prealbumin Triglycerides Cholesterol LDL Cholesterol Direct HDL Cholesterol Urine pH Urine WBC (Auto) Urine Creatinine Urine Total Protein Fluid Total Protein Vancomycin Trough Rheumatoid Factor Complement C4 Miscellaneous Test Crossmatch 10/15/16 10/15/16 10/16/16 Unknown Unknown 00:02 WBC 23.4 H RBC 2.78 L Hgb 8.5 L Hct 25.7 L MCV MCH MCHC RDW 18.7 H Plt Count Lymph % (Auto) [place] % (Auto) Lymph # [place] # Baso # Seg Neutrophils % Seg Neuts % (Manual) Lymphocytes % (Manual) Monocytes % (Manual) Eosinophils % (Manual) Basophils % (Manual) Nucleated RBC % Seg Neutrophils # Seg Neutrophils # Man Lymphocytes # (Manual) Monocytes # (Manual) Eosinophils # (Manual) Basophils # (Manual) PT INR Fibrinogen dRVVT Confirm Interp Factor V Activity POC ABG pH POC ABG pCO2 POC ABG pO2 ABG pO2 ABG HCO3 ABG Base Excess ABG Hemoglobin Oxyhemoglobin Sodium Potassium Chloride Carbon Dioxide BUN 73 H Creatinine 2.3 H Glucose 120 H POC Glucose 137 H Lactic Acid Calcium Phosphorus Magnesium Direct Bilirubin AST ALT Alkaline Phosphatase Lactate Dehydrogenase Troponin T C-Reactive Protein Total Protein Albumin Prealbumin Triglycerides Cholesterol LDL Cholesterol Direct HDL Cholesterol Urine pH Urine WBC (Auto) Urine Creatinine Urine Total Protein Fluid Total Protein Vancomycin Trough Rheumatoid Factor Complement C4 Miscellaneous Test Crossmatch 10/16/16 10/16/16 10/16/16 05:44 06:25 06:25 WBC 22.5 H RBC 2.76 L Hgb 8.3 L Hct 25.2 L MCV MCH MCHC RDW 18.3 H Plt Count Lymph % (Auto) [place] % (Auto) Lymph # [place] # Baso # Seg Neutrophils % Seg Neuts % (Manual) Lymphocytes % (Manual) Monocytes % (Manual) Eosinophils % (Manual) Basophils % (Manual) Nucleated RBC % Seg Neutrophils # Seg Neutrophils # Man Lymphocytes # (Manual) Monocytes # (Manual) Eosinophils # (Manual) Basophils # (Manual) PT INR Fibrinogen dRVVT Confirm Interp Factor V Activity POC ABG pH POC ABG pCO2 POC ABG pO2 ABG pO2 ABG HCO3 ABG Base Excess ABG Hemoglobin Oxyhemoglobin Sodium Potassium Chloride Carbon Dioxide BUN 92 H Creatinine 3.0 H Glucose 138 H POC Glucose 110 H Lactic Acid Calcium Phosphorus Magnesium Direct Bilirubin AST ALT Alkaline Phosphatase Lactate Dehydrogenase Troponin T C-Reactive Protein Total Protein Albumin Prealbumin Triglycerides Cholesterol LDL Cholesterol Direct HDL Cholesterol Urine pH Urine WBC (Auto) Urine Creatinine Urine Total Protein Fluid Total Protein Vancomycin Trough Rheumatoid Factor Complement C4 Miscellaneous Test Crossmatch 10/16/16 10/16/16 10/16/16 11:27 11:48 17:36 WBC RBC Hgb Hct MCV MCH MCHC RDW Plt Count Lymph % (Auto) [place] % (Auto) Lymph # [place] # Baso # Seg Neutrophils % Seg Neuts % (Manual) Lymphocytes % (Manual) Monocytes % (Manual) Eosinophils % (Manual) Basophils % (Manual) Nucleated RBC % Seg Neutrophils # Seg Neutrophils # Man Lymphocytes # (Manual) Monocytes # (Manual) Eosinophils # (Manual) Basophils # (Manual) PT INR Fibrinogen dRVVT Confirm Interp Factor V Activity POC ABG pH 7.582 H POC ABG pCO2 27.4 L POC ABG pO2 110 H ABG pO2 ABG HCO3 ABG Base Excess ABG Hemoglobin Oxyhemoglobin Sodium Potassium Chloride Carbon Dioxide BUN Creatinine Glucose POC Glucose 121 H 133 H Lactic Acid Calcium Phosphorus Magnesium Direct Bilirubin AST ALT Alkaline Phosphatase Lactate Dehydrogenase Troponin T C-Reactive Protein Total Protein Albumin Prealbumin Triglycerides Cholesterol LDL Cholesterol Direct HDL Cholesterol Urine pH Urine WBC (Auto) Urine Creatinine Urine Total Protein Fluid Total Protein Vancomycin Trough Rheumatoid Factor Complement C4 Miscellaneous Test Crossmatch 10/16/16 10/17/16 10/17/16 20:48 04:24 04:24 WBC 21.4 H RBC 2.72 L Hgb 8.0 L Hct 25.2 L MCV MCH MCHC RDW 18.0 H Plt Count Lymph % (Auto) [place] % (Auto) Lymph # [place] # Baso # Seg Neutrophils % Seg Neuts % (Manual) Lymphocytes % (Manual) Monocytes % (Manual) Eosinophils % (Manual) Basophils % (Manual) Nucleated RBC % Seg Neutrophils # Seg Neutrophils # Man Lymphocytes # (Manual) Monocytes # (Manual) Eosinophils # (Manual) Basophils # (Manual) PT INR Fibrinogen dRVVT Confirm Interp Factor V Activity POC ABG pH 7.561 H POC ABG pCO2 24.4 L POC ABG pO2 77 L ABG pO2 ABG HCO3 ABG Base Excess ABG Hemoglobin Oxyhemoglobin Sodium 148 H Potassium Chloride Carbon Dioxide BUN 104 H Creatinine 3.0 H Glucose 149 H POC Glucose Lactic Acid Calcium Phosphorus Magnesium Direct Bilirubin AST ALT Alkaline Phosphatase 138 H Lactate Dehydrogenase Troponin T C-Reactive Protein Total Protein 6.2 L Albumin 1.5 L Prealbumin Triglycerides Cholesterol LDL Cholesterol Direct HDL Cholesterol Urine pH Urine WBC (Auto) Urine Creatinine Urine Total Protein Fluid Total Protein Vancomycin Trough Rheumatoid Factor Complement C4 Miscellaneous Test Crossmatch 10/17/16 10/17/16 10/17/16 06:02 12:17 17:14 WBC RBC Hgb Hct MCV MCH MCHC RDW Plt Count Lymph % (Auto) [place] % (Auto) Lymph # [place] # Baso # Seg Neutrophils % Seg Neuts % (Manual) Lymphocytes % (Manual) Monocytes % (Manual) Eosinophils % (Manual) Basophils % (Manual) Nucleated RBC % Seg Neutrophils # Seg Neutrophils # Man Lymphocytes # (Manual) Monocytes # (Manual) Eosinophils # (Manual) Basophils # (Manual) PT INR Fibrinogen dRVVT Confirm Interp Factor V Activity POC ABG pH POC ABG pCO2 POC ABG pO2 ABG pO2 ABG HCO3 ABG Base Excess ABG Hemoglobin Oxyhemoglobin Sodium Potassium Chloride Carbon Dioxide BUN Creatinine Glucose POC Glucose 170 H 167 H 126 H Lactic Acid Calcium Phosphorus Magnesium Direct Bilirubin AST ALT Alkaline Phosphatase Lactate Dehydrogenase Troponin T C-Reactive Protein Total Protein Albumin Prealbumin Triglycerides Cholesterol LDL Cholesterol Direct HDL Cholesterol Urine pH Urine WBC (Auto) Urine Creatinine Urine Total Protein Fluid Total Protein Vancomycin Trough Rheumatoid Factor Complement C4 Miscellaneous Test Crossmatch 10/17/16 10/18/16 10/18/16 23:17 04:00 04:00 WBC 20.7 H RBC 2.47 L Hgb 7.4 L Hct 22.9 L MCV MCH MCHC RDW 17.5 H Plt Count Lymph % (Auto) [place] % (Auto) Lymph # [place] # Baso # Seg Neutrophils % Seg Neuts % (Manual) Lymphocytes % (Manual) Monocytes % (Manual) Eosinophils % (Manual) Basophils % (Manual) Nucleated RBC % Seg Neutrophils # Seg Neutrophils # Man Lymphocytes # (Manual) Monocytes # (Manual) Eosinophils # (Manual) Basophils # (Manual) PT INR Fibrinogen dRVVT Confirm Interp Factor V Activity POC ABG pH POC ABG pCO2 POC ABG pO2 ABG pO2 ABG HCO3 ABG Base Excess ABG Hemoglobin Oxyhemoglobin Sodium 149 H Potassium Chloride 107.9 H Carbon Dioxide 20 L BUN 117 H Creatinine 3.2 H Glucose 119 H POC Glucose 121 H Lactic Acid Calcium Phosphorus Magnesium Direct Bilirubin AST ALT Alkaline Phosphatase Lactate Dehydrogenase Troponin T C-Reactive Protein Total Protein Albumin Prealbumin Triglycerides Cholesterol LDL Cholesterol Direct HDL Cholesterol Urine pH Urine WBC (Auto) Urine Creatinine Urine Total Protein Fluid Total Protein Vancomycin Trough Rheumatoid Factor Complement C4 Miscellaneous Test Crossmatch 10/18/16 10/18/16 10/18/16 05:23 10:46 17:30 WBC RBC Hgb Hct MCV MCH MCHC RDW Plt Count Lymph % (Auto) [place] % (Auto) Lymph # [place] # Baso # Seg Neutrophils % Seg Neuts % (Manual) Lymphocytes % (Manual) Monocytes % (Manual) Eosinophils % (Manual) Basophils % (Manual) Nucleated RBC % Seg Neutrophils # Seg Neutrophils # Man Lymphocytes # (Manual) Monocytes # (Manual) Eosinophils # (Manual) Basophils # (Manual) PT INR Fibrinogen dRVVT Confirm Interp Factor V Activity POC ABG pH POC ABG pCO2 POC ABG pO2 ABG pO2 ABG HCO3 ABG Base Excess ABG Hemoglobin Oxyhemoglobin Sodium Potassium Chloride Carbon Dioxide BUN Creatinine Glucose POC Glucose 119 H 155 H 124 H Lactic Acid Calcium Phosphorus Magnesium Direct Bilirubin AST ALT Alkaline Phosphatase Lactate Dehydrogenase Troponin T C-Reactive Protein Total Protein Albumin Prealbumin Triglycerides Cholesterol LDL Cholesterol Direct HDL Cholesterol Urine pH Urine WBC (Auto) Urine Creatinine Urine Total Protein Fluid Total Protein Vancomycin Trough Rheumatoid Factor Complement C4 Miscellaneous Test Crossmatch 10/19/16 10/19/16 10/19/16 04:00 04:00 05:25 WBC 17.4 H RBC 2.54 L Hgb 7.7 L Hct 23.6 L MCV MCH MCHC RDW 17.3 H Plt Count Lymph % (Auto) [place] % (Auto) Lymph # [place] # Baso # Seg Neutrophils % Seg Neuts % (Manual) Lymphocytes % (Manual) Monocytes % (Manual) Eosinophils % (Manual) Basophils % (Manual) Nucleated RBC % Seg Neutrophils # Seg Neutrophils # Man Lymphocytes # (Manual) Monocytes # (Manual) Eosinophils # (Manual) Basophils # (Manual) PT INR Fibrinogen dRVVT Confirm Interp Factor V Activity POC ABG pH POC ABG pCO2 POC ABG pO2 ABG pO2 ABG HCO3 ABG Base Excess ABG Hemoglobin Oxyhemoglobin Sodium Potassium Chloride Carbon Dioxide BUN 72 H Creatinine 2.1 H Glucose 116 H POC Glucose 119 H Lactic Acid Calcium Phosphorus Magnesium Direct Bilirubin AST ALT Alkaline Phosphatase Lactate Dehydrogenase Troponin T C-Reactive Protein Total Protein Albumin Prealbumin Triglycerides Cholesterol LDL Cholesterol Direct HDL Cholesterol Urine pH Urine WBC (Auto) Urine Creatinine Urine Total Protein Fluid Total Protein Vancomycin Trough Rheumatoid Factor Complement C4 Miscellaneous Test Crossmatch 10/19/16 10/19/16 10/20/16 11:46 23:59 06:00 WBC RBC Hgb Hct MCV MCH MCHC RDW Plt Count Lymph % (Auto) [place] % (Auto) Lymph # [place] # Baso # Seg Neutrophils % Seg Neuts % (Manual) Lymphocytes % (Manual) Monocytes % (Manual) Eosinophils % (Manual) Basophils % (Manual) Nucleated RBC % Seg Neutrophils # Seg Neutrophils # Man Lymphocytes # (Manual) Monocytes # (Manual) Eosinophils # (Manual) Basophils # (Manual) PT INR Fibrinogen dRVVT Confirm Interp Factor V Activity POC ABG pH POC ABG pCO2 POC ABG pO2 ABG pO2 ABG HCO3 ABG Base Excess ABG Hemoglobin Oxyhemoglobin Sodium Potassium Chloride Carbon Dioxide 17 L BUN 94 H Creatinine 2.7 H Glucose POC Glucose 116 H 117 H Lactic Acid Calcium Phosphorus Magnesium Direct Bilirubin AST ALT Alkaline Phosphatase Lactate Dehydrogenase Troponin T C-Reactive Protein Total Protein Albumin Prealbumin Triglycerides Cholesterol LDL Cholesterol Direct HDL Cholesterol Urine pH Urine WBC (Auto) Urine Creatinine Urine Total Protein Fluid Total Protein Vancomycin Trough Rheumatoid Factor Complement C4 Miscellaneous Test Crossmatch 10/20/16 10/20/16 10/20/16 06:00 11:49 16:00 WBC 19.7 H RBC 2.51 L Hgb 7.7 L Hct 23.5 L MCV MCH MCHC RDW 17.5 H Plt Count Lymph % (Auto) [place] % (Auto) Lymph # [place] # Baso # Seg Neutrophils % Seg Neuts % (Manual) Lymphocytes % (Manual) Monocytes % (Manual) Eosinophils % (Manual) Basophils % (Manual) Nucleated RBC % Seg Neutrophils # Seg Neutrophils # Man Lymphocytes # (Manual) Monocytes # (Manual) Eosinophils # (Manual) Basophils # (Manual) PT INR Fibrinogen dRVVT Confirm Interp Factor V Activity POC ABG pH POC ABG pCO2 POC ABG pO2 ABG pO2 ABG HCO3 ABG Base Excess ABG Hemoglobin Oxyhemoglobin Sodium Potassium Chloride Carbon Dioxide BUN Creatinine Glucose POC Glucose 117 H Lactic Acid Calcium Phosphorus Magnesium Direct Bilirubin AST ALT Alkaline Phosphatase Lactate Dehydrogenase Troponin T C-Reactive Protein Total Protein Albumin Prealbumin Triglycerides Cholesterol LDL Cholesterol Direct HDL Cholesterol Urine pH Urine WBC (Auto) Urine Creatinine Urine Total Protein Fluid Total Protein Vancomycin Trough Rheumatoid Factor Complement C4 Miscellaneous Test Flexitest 1 H Crossmatch 10/20/16 10/20/16 10/21/16 18:36 23:39 04:00 WBC RBC Hgb Hct MCV MCH MCHC RDW Plt Count Lymph % (Auto) [place] % (Auto) Lymph # [place] # Baso # Seg Neutrophils % Seg Neuts % (Manual) Lymphocytes % (Manual) Monocytes % (Manual) Eosinophils % (Manual) Basophils % (Manual) Nucleated RBC % Seg Neutrophils # Seg Neutrophils # Man Lymphocytes # (Manual) Monocytes # (Manual) Eosinophils # (Manual) Basophils # (Manual) PT INR Fibrinogen dRVVT Confirm Interp Factor V Activity POC ABG pH POC ABG pCO2 POC ABG pO2 ABG pO2 ABG HCO3 ABG Base Excess ABG Hemoglobin Oxyhemoglobin Sodium Potassium 5.4 H D Chloride Carbon Dioxide 15 L BUN 110 H Creatinine 3.0 H Glucose POC Glucose 127 H 114 H Lactic Acid Calcium Phosphorus Magnesium Direct Bilirubin AST ALT Alkaline Phosphatase Lactate Dehydrogenase Troponin T C-Reactive Protein Total Protein Albumin Prealbumin Triglycerides Cholesterol LDL Cholesterol Direct HDL Cholesterol Urine pH Urine WBC (Auto) Urine Creatinine Urine Total Protein Fluid Total Protein Vancomycin Trough Rheumatoid Factor Complement C4 Miscellaneous Test Crossmatch 10/21/16 10/21/16 10/22/16 05:54 23:46 05:18 WBC RBC Hgb Hct MCV MCH MCHC RDW Plt Count Lymph % (Auto) [place] % (Auto) Lymph # [place] # Baso # Seg Neutrophils % Seg Neuts % (Manual) Lymphocytes % (Manual) Monocytes % (Manual) Eosinophils % (Manual) Basophils % (Manual) Nucleated RBC % Seg Neutrophils # Seg Neutrophils # Man Lymphocytes # (Manual) Monocytes # (Manual) Eosinophils # (Manual) Basophils # (Manual) PT INR Fibrinogen dRVVT Confirm Interp Factor V Activity POC ABG pH POC ABG pCO2 POC ABG pO2 ABG pO2 ABG HCO3 ABG Base Excess ABG Hemoglobin Oxyhemoglobin Sodium Potassium Chloride Carbon Dioxide BUN Creatinine Glucose POC Glucose 119 H 108 H 109 H Lactic Acid Calcium Phosphorus Magnesium Direct Bilirubin AST ALT Alkaline Phosphatase Lactate Dehydrogenase Troponin T C-Reactive Protein Total Protein Albumin Prealbumin Triglycerides Cholesterol LDL Cholesterol Direct HDL Cholesterol Urine pH Urine WBC (Auto) Urine Creatinine Urine Total Protein Fluid Total Protein Vancomycin Trough Rheumatoid Factor Complement C4 Miscellaneous Test Crossmatch 10/22/16 10/22/16 10/22/16 06:40 06:40 06:40 WBC 14.0 H RBC 2.03 L Hgb 7.0 L Hct 20.5 L MCV 98 H MCH 34 H MCHC 35 H RDW 17.8 H Plt Count Lymph % (Auto) [place] % (Auto) 9.9 H Lymph # [place] # 1.4 H Baso # 0.2 H Seg Neutrophils % 72.0 H Seg Neuts % (Manual) Lymphocytes % (Manual) Monocytes % (Manual) Eosinophils % (Manual) Basophils % (Manual) Nucleated RBC % Seg Neutrophils # 10.0 H Seg Neutrophils # Man Lymphocytes # (Manual) Monocytes # (Manual) Eosinophils # (Manual) Basophils # (Manual) PT INR Fibrinogen dRVVT Confirm Interp Factor V Activity POC ABG pH POC ABG pCO2 POC ABG pO2 ABG pO2 ABG HCO3 ABG Base Excess ABG Hemoglobin Oxyhemoglobin Sodium 130 L D Potassium Chloride 92.4 L Carbon Dioxide 20 L BUN 50 H Creatinine 1.6 H Glucose 589 H* POC Glucose Lactic Acid Calcium 7.8 L D Phosphorus Magnesium 1.60 L Direct Bilirubin AST ALT Alkaline Phosphatase Lactate Dehydrogenase Troponin T C-Reactive Protein Total Protein Albumin Prealbumin Triglycerides Cholesterol LDL Cholesterol Direct HDL Cholesterol Urine pH Urine WBC (Auto) Urine Creatinine Urine Total Protein Fluid Total Protein Vancomycin Trough Rheumatoid Factor Complement C4 Miscellaneous Test Crossmatch 10/22/16 10/22/16 10/22/16 11:39 16:44 23:36 WBC RBC Hgb Hct MCV MCH MCHC RDW Plt Count Lymph % (Auto) [place] % (Auto) Lymph # [place] # Baso # Seg Neutrophils % Seg Neuts % (Manual) Lymphocytes % (Manual) Monocytes % (Manual) Eosinophils % (Manual) Basophils % (Manual) Nucleated RBC % Seg Neutrophils # Seg Neutrophils # Man Lymphocytes # (Manual) Monocytes # (Manual) Eosinophils # (Manual) Basophils # (Manual) PT INR Fibrinogen dRVVT Confirm Interp Factor V Activity POC ABG pH POC ABG pCO2 POC ABG pO2 ABG pO2 ABG HCO3 ABG Base Excess ABG Hemoglobin Oxyhemoglobin Sodium Potassium Chloride Carbon Dioxide BUN Creatinine Glucose POC Glucose 142 H 163 H 123 H Lactic Acid Calcium Phosphorus Magnesium Direct Bilirubin AST ALT Alkaline Phosphatase Lactate Dehydrogenase Troponin T C-Reactive Protein Total Protein Albumin Prealbumin Triglycerides Cholesterol LDL Cholesterol Direct HDL Cholesterol Urine pH Urine WBC (Auto) Urine Creatinine Urine Total Protein Fluid Total Protein Vancomycin Trough Rheumatoid Factor Complement C4 Miscellaneous Test Crossmatch 10/23/16 10/23/16 10/23/16 04:58 06:00 12:12 WBC RBC Hgb Hct MCV MCH MCHC RDW Plt Count Lymph % (Auto) [place] % (Auto) Lymph # [place] # Baso # Seg Neutrophils % Seg Neuts % (Manual) Lymphocytes % (Manual) Monocytes % (Manual) Eosinophils % (Manual) Basophils % (Manual) Nucleated RBC % Seg Neutrophils # Seg Neutrophils # Man Lymphocytes # (Manual) Monocytes # (Manual) Eosinophils # (Manual) Basophils # (Manual) PT INR Fibrinogen dRVVT Confirm Interp Factor V Activity POC ABG pH POC ABG pCO2 POC ABG pO2 ABG pO2 ABG HCO3 ABG Base Excess ABG Hemoglobin Oxyhemoglobin Sodium 133 L Potassium 3.5 L Chloride 96.1 L Carbon Dioxide 18 L BUN 76 H Creatinine 2.1 H Glucose POC Glucose 133 H 138 H Lactic Acid Calcium 8.3 L Phosphorus Magnesium Direct Bilirubin AST ALT Alkaline Phosphatase Lactate Dehydrogenase Troponin T C-Reactive Protein Total Protein Albumin Prealbumin Triglycerides Cholesterol LDL Cholesterol Direct HDL Cholesterol Urine pH Urine WBC (Auto) Urine Creatinine Urine Total Protein Fluid Total Protein Vancomycin Trough Rheumatoid Factor Complement C4 Miscellaneous Test Crossmatch 10/23/16 10/23/16 10/24/16 16:53 23:37 04:00 WBC RBC Hgb Hct MCV MCH MCHC RDW Plt Count Lymph % (Auto) [place] % (Auto) Lymph # [place] # Baso # Seg Neutrophils % Seg Neuts % (Manual) Lymphocytes % (Manual) Monocytes % (Manual) Eosinophils % (Manual) Basophils % (Manual) Nucleated RBC % Seg Neutrophils # Seg Neutrophils # Man Lymphocytes # (Manual) Monocytes # (Manual) Eosinophils # (Manual) Basophils # (Manual) PT INR Fibrinogen dRVVT Confirm Interp Factor V Activity POC ABG pH POC ABG pCO2 POC ABG pO2 ABG pO2 ABG HCO3 ABG Base Excess ABG Hemoglobin Oxyhemoglobin Sodium 131 L Potassium Chloride 94.5 L Carbon Dioxide 19 L BUN 97 H Creatinine 2.6 H Glucose 110 H POC Glucose 125 H 123 H Lactic Acid Calcium 8.3 L Phosphorus Magnesium Direct Bilirubin AST ALT Alkaline Phosphatase Lactate Dehydrogenase Troponin T C-Reactive Protein Total Protein Albumin Prealbumin Triglycerides Cholesterol LDL Cholesterol Direct HDL Cholesterol Urine pH Urine WBC (Auto) Urine Creatinine Urine Total Protein Fluid Total Protein Vancomycin Trough Rheumatoid Factor Complement C4 Miscellaneous Test Crossmatch 10/24/16 10/24/16 10/24/16 07:49 11:39 17:52 WBC RBC Hgb 6.0 L Hct 19.7 L* MCV MCH MCHC RDW Plt Count Lymph % (Auto) [place] % (Auto) Lymph # [place] # Baso # Seg Neutrophils % Seg Neuts % (Manual) Lymphocytes % (Manual) Monocytes % (Manual) Eosinophils % (Manual) Basophils % (Manual) Nucleated RBC % Seg Neutrophils # Seg Neutrophils # Man Lymphocytes # (Manual) Monocytes # (Manual) Eosinophils # (Manual) Basophils # (Manual) PT INR Fibrinogen dRVVT Confirm Interp Factor V Activity POC ABG pH POC ABG pCO2 POC ABG pO2 ABG pO2 ABG HCO3 ABG Base Excess ABG Hemoglobin Oxyhemoglobin Sodium Potassium Chloride Carbon Dioxide BUN Creatinine Glucose POC Glucose 106 H 158 H Lactic Acid Calcium Phosphorus Magnesium Direct Bilirubin AST ALT Alkaline Phosphatase Lactate Dehydrogenase Troponin T C-Reactive Protein Total Protein Albumin Prealbumin Triglycerides Cholesterol LDL Cholesterol Direct HDL Cholesterol Urine pH Urine WBC (Auto) Urine Creatinine Urine Total Protein Fluid Total Protein Vancomycin Trough Rheumatoid Factor Complement C4 Miscellaneous Test Crossmatch 10/24/16 10/24/16 10/24/16 20:00 22:27 Unknown WBC RBC Hgb 9.4 L D Hct 27.5 L D MCV MCH MCHC RDW Plt Count Lymph % (Auto) [place] % (Auto) Lymph # [place] # Baso # Seg Neutrophils % Seg Neuts % (Manual) Lymphocytes % (Manual) Monocytes % (Manual) Eosinophils % (Manual) Basophils % (Manual) Nucleated RBC % Seg Neutrophils # Seg Neutrophils # Man Lymphocytes # (Manual) Monocytes # (Manual) Eosinophils # (Manual) Basophils # (Manual) PT INR Fibrinogen dRVVT Confirm Interp Factor V Activity POC ABG pH POC ABG pCO2 POC ABG pO2 ABG pO2 ABG HCO3 ABG Base Excess ABG Hemoglobin Oxyhemoglobin Sodium Potassium Chloride Carbon Dioxide BUN Creatinine Glucose POC Glucose 125 H Lactic Acid Calcium Phosphorus Magnesium Direct Bilirubin AST ALT Alkaline Phosphatase Lactate Dehydrogenase Troponin T C-Reactive Protein Total Protein Albumin Prealbumin Triglycerides Cholesterol LDL Cholesterol Direct HDL Cholesterol Urine pH Urine WBC (Auto) Urine Creatinine Urine Total Protein Fluid Total Protein Vancomycin Trough Rheumatoid Factor Complement C4 Miscellaneous Test Crossmatch See Detail 10/25/16 10/25/16 10/25/16 04:00 04:00 04:00 WBC 14.2 H RBC 2.98 L Hgb 9.0 L Hct 26.2 L MCV MCH MCHC RDW 16.6 H Plt Count Lymph % (Auto) [place] % (Auto) 10.7 H Lymph # [place] # 1.5 H Baso # Seg Neutrophils % 73.6 H Seg Neuts % (Manual) Lymphocytes % (Manual) Monocytes % (Manual) Eosinophils % (Manual) Basophils % (Manual) Nucleated RBC % Seg Neutrophils # 10.5 H Seg Neutrophils # Man Lymphocytes # (Manual) Monocytes # (Manual) Eosinophils # (Manual) Basophils # (Manual) PT INR Fibrinogen dRVVT Confirm Interp Factor V Activity POC ABG pH POC ABG pCO2 POC ABG pO2 ABG pO2 ABG HCO3 ABG Base Excess ABG Hemoglobin Oxyhemoglobin Sodium 132 L Potassium Chloride 94.7 L Carbon Dioxide BUN 51 H Creatinine 1.6 H Glucose 130 H POC Glucose Lactic Acid Calcium 8.3 L Phosphorus 1.60 L D Magnesium Direct Bilirubin AST ALT Alkaline Phosphatase Lactate Dehydrogenase Troponin T C-Reactive Protein Total Protein Albumin Prealbumin Triglycerides Cholesterol LDL Cholesterol Direct HDL Cholesterol Urine pH Urine WBC (Auto) Urine Creatinine Urine Total Protein Fluid Total Protein Vancomycin Trough Rheumatoid Factor Complement C4 Miscellaneous Test Crossmatch 10/25/16 10/25/16 10/25/16 04:32 11:48 17:22 WBC RBC Hgb Hct MCV MCH MCHC RDW Plt Count Lymph % (Auto) [place] % (Auto) Lymph # [place] # Baso # Seg Neutrophils % Seg Neuts % (Manual) Lymphocytes % (Manual) Monocytes % (Manual) Eosinophils % (Manual) Basophils % (Manual) Nucleated RBC % Seg Neutrophils # Seg Neutrophils # Man Lymphocytes # (Manual) Monocytes # (Manual) Eosinophils # (Manual) Basophils # (Manual) PT INR Fibrinogen dRVVT Confirm Interp Factor V Activity POC ABG pH POC ABG pCO2 POC ABG pO2 ABG pO2 ABG HCO3 ABG Base Excess ABG Hemoglobin Oxyhemoglobin Sodium Potassium Chloride Carbon Dioxide BUN Creatinine Glucose POC Glucose 124 H 171 H 120 H Lactic Acid Calcium Phosphorus Magnesium Direct Bilirubin AST ALT Alkaline Phosphatase Lactate Dehydrogenase Troponin T C-Reactive Protein Total Protein Albumin Prealbumin Triglycerides Cholesterol LDL Cholesterol Direct HDL Cholesterol Urine pH Urine WBC (Auto) Urine Creatinine Urine Total Protein Fluid Total Protein Vancomycin Trough Rheumatoid Factor Complement C4 Miscellaneous Test Crossmatch 10/26/16 10/26/16 10/26/16 04:54 07:06 07:06 WBC 16.9 H RBC 3.06 L Hgb 9.1 L Hct 26.9 L MCV MCH MCHC RDW 16.9 H Plt Count Lymph % (Auto) [place] % (Auto) Lymph # [place] # Baso # Seg Neutrophils % Seg Neuts % (Manual) 71.0 H Lymphocytes % (Manual) 5.0 L Monocytes % (Manual) 12.0 H Eosinophils % (Manual) Basophils % (Manual) Nucleated RBC % Seg Neutrophils # Seg Neutrophils # Man 12.0 H Lymphocytes # (Manual) 0.8 L Monocytes # (Manual) 2.0 H Eosinophils # (Manual) Basophils # (Manual) PT INR Fibrinogen dRVVT Confirm Interp Factor V Activity POC ABG pH POC ABG pCO2 POC ABG pO2 ABG pO2 ABG HCO3 ABG Base Excess ABG Hemoglobin Oxyhemoglobin Sodium 135 L Potassium Chloride 97.1 L Carbon Dioxide BUN 73 H Creatinine 2.2 H Glucose 117 H POC Glucose 123 H Lactic Acid Calcium Phosphorus 1.70 L Magnesium Direct Bilirubin AST ALT Alkaline Phosphatase Lactate Dehydrogenase Troponin T C-Reactive Protein Total Protein Albumin Prealbumin Triglycerides Cholesterol LDL Cholesterol Direct HDL Cholesterol Urine pH Urine WBC (Auto) Urine Creatinine Urine Total Protein Fluid Total Protein Vancomycin Trough Rheumatoid Factor Complement C4 Miscellaneous Test Crossmatch 10/26/16 10/26/16 10/26/16 12:12 17:29 23:42 WBC RBC Hgb Hct MCV MCH MCHC RDW Plt Count Lymph % (Auto) [place] % (Auto) Lymph # [place] # Baso # Seg Neutrophils % Seg Neuts % (Manual) Lymphocytes % (Manual) Monocytes % (Manual) Eosinophils % (Manual) Basophils % (Manual) Nucleated RBC % Seg Neutrophils # Seg Neutrophils # Man Lymphocytes # (Manual) Monocytes # (Manual) Eosinophils # (Manual) Basophils # (Manual) PT INR Fibrinogen dRVVT Confirm Interp Factor V Activity POC ABG pH POC ABG pCO2 POC ABG pO2 ABG pO2 ABG HCO3 ABG Base Excess ABG Hemoglobin Oxyhemoglobin Sodium Potassium Chloride Carbon Dioxide BUN Creatinine Glucose POC Glucose 126 H 161 H 118 H Lactic Acid Calcium Phosphorus Magnesium Direct Bilirubin AST ALT Alkaline Phosphatase Lactate Dehydrogenase Troponin T C-Reactive Protein Total Protein Albumin Prealbumin Triglycerides Cholesterol LDL Cholesterol Direct HDL Cholesterol Urine pH Urine WBC (Auto) Urine Creatinine Urine Total Protein Fluid Total Protein Vancomycin Trough Rheumatoid Factor Complement C4 Miscellaneous Test Crossmatch 10/27/16 10/27/16 10/27/16 05:03 06:30 06:30 WBC 13.9 H RBC 3.09 L Hgb 9.2 L Hct 27.5 L MCV MCH MCHC RDW 17.0 H Plt Count Lymph % (Auto) [place] % (Auto) Lymph # [place] # Baso # Seg Neutrophils % Seg Neuts % (Manual) 78.0 H Lymphocytes % (Manual) Monocytes % (Manual) Eosinophils % (Manual) Basophils % (Manual) Nucleated RBC % 2.0 H Seg Neutrophils # Seg Neutrophils # Man 10.8 H Lymphocytes # (Manual) Monocytes # (Manual) 1.0 H Eosinophils # (Manual) Basophils # (Manual) PT INR Fibrinogen dRVVT Confirm Interp Factor V Activity POC ABG pH POC ABG pCO2 POC ABG pO2 ABG pO2 ABG HCO3 ABG Base Excess ABG Hemoglobin Oxyhemoglobin Sodium Potassium Chloride Carbon Dioxide BUN 40 H Creatinine 1.5 H Glucose 135 H POC Glucose 107 H Lactic Acid Calcium 8.3 L Phosphorus 1.30 L D Magnesium Direct Bilirubin AST ALT Alkaline Phosphatase Lactate Dehydrogenase Troponin T C-Reactive Protein Total Protein Albumin Prealbumin Triglycerides Cholesterol LDL Cholesterol Direct HDL Cholesterol Urine pH Urine WBC (Auto) Urine Creatinine Urine Total Protein Fluid Total Protein Vancomycin Trough Rheumatoid Factor Complement C4 Miscellaneous Test Crossmatch 10/27/16 10/27/16 10/27/16 13:27 18:07 23:40 WBC RBC Hgb Hct MCV MCH MCHC RDW Plt Count Lymph % (Auto) [place] % (Auto) Lymph # [place] # Baso # Seg Neutrophils % Seg Neuts % (Manual) Lymphocytes % (Manual) Monocytes % (Manual) Eosinophils % (Manual) Basophils % (Manual) Nucleated RBC % Seg Neutrophils # Seg Neutrophils # Man Lymphocytes # (Manual) Monocytes # (Manual) Eosinophils # (Manual) Basophils # (Manual) PT INR Fibrinogen dRVVT Confirm Interp Factor V Activity POC ABG pH POC ABG pCO2 POC ABG pO2 ABG pO2 ABG HCO3 ABG Base Excess ABG Hemoglobin Oxyhemoglobin Sodium Potassium Chloride Carbon Dioxide BUN Creatinine Glucose POC Glucose 117 H 121 H 118 H Lactic Acid Calcium Phosphorus Magnesium Direct Bilirubin AST ALT Alkaline Phosphatase Lactate Dehydrogenase Troponin T C-Reactive Protein Total Protein Albumin Prealbumin Triglycerides Cholesterol LDL Cholesterol Direct HDL Cholesterol Urine pH Urine WBC (Auto) Urine Creatinine Urine Total Protein Fluid Total Protein Vancomycin Trough Rheumatoid Factor Complement C4 Miscellaneous Test Crossmatch 10/28/16 10/28/16 10/28/16 05:48 06:45 06:45 WBC 14.7 H RBC 3.05 L Hgb 9.0 L Hct 26.9 L MCV MCH MCHC RDW 16.8 H Plt Count Lymph % (Auto) 8.2 L [place] % (Auto) 8.4 H Lymph # [place] # 1.2 H Baso # Seg Neutrophils % 81.9 H Seg Neuts % (Manual) Lymphocytes % (Manual) Monocytes % (Manual) Eosinophils % (Manual) Basophils % (Manual) Nucleated RBC % Seg Neutrophils # 12.1 H Seg Neutrophils # Man Lymphocytes # (Manual) Monocytes # (Manual) Eosinophils # (Manual) Basophils # (Manual) PT INR Fibrinogen dRVVT Confirm Interp Factor V Activity POC ABG pH POC ABG pCO2 POC ABG pO2 ABG pO2 ABG HCO3 ABG Base Excess ABG Hemoglobin Oxyhemoglobin Sodium Potassium Chloride Carbon Dioxide BUN 60 H Creatinine 1.9 H Glucose 120 H POC Glucose 114 H Lactic Acid Calcium Phosphorus Magnesium Direct Bilirubin AST ALT Alkaline Phosphatase Lactate Dehydrogenase Troponin T C-Reactive Protein Total Protein Albumin Prealbumin Triglycerides Cholesterol LDL Cholesterol Direct HDL Cholesterol Urine pH Urine WBC (Auto) Urine Creatinine Urine Total Protein Fluid Total Protein Vancomycin Trough Rheumatoid Factor Complement C4 Miscellaneous Test Crossmatch 10/28/16 10/28/16 10/29/16 17:08 23:50 05:10 WBC RBC Hgb Hct MCV MCH MCHC RDW Plt Count Lymph % (Auto) [place] % (Auto) Lymph # [place] # Baso # Seg Neutrophils % Seg Neuts % (Manual) Lymphocytes % (Manual) Monocytes % (Manual) Eosinophils % (Manual) Basophils % (Manual) Nucleated RBC % Seg Neutrophils # Seg Neutrophils # Man Lymphocytes # (Manual) Monocytes # (Manual) Eosinophils # (Manual) Basophils # (Manual) PT INR Fibrinogen dRVVT Confirm Interp Factor V Activity POC ABG pH POC ABG pCO2 POC ABG pO2 ABG pO2 ABG HCO3 ABG Base Excess ABG Hemoglobin Oxyhemoglobin Sodium Potassium Chloride Carbon Dioxide BUN Creatinine Glucose POC Glucose 109 H 110 H 124 H Lactic Acid Calcium Phosphorus Magnesium Direct Bilirubin AST ALT Alkaline Phosphatase Lactate Dehydrogenase Troponin T C-Reactive Protein Total Protein Albumin Prealbumin Triglycerides Cholesterol LDL Cholesterol Direct HDL Cholesterol Urine pH Urine WBC (Auto) Urine Creatinine Urine Total Protein Fluid Total Protein Vancomycin Trough Rheumatoid Factor Complement C4 Miscellaneous Test Crossmatch 10/29/16 10/29/16 10/29/16 07:45 07:45 12:19 WBC 14.7 H RBC 3.15 L Hgb 9.3 L Hct 28.9 L MCV MCH MCHC RDW 17.0 H Plt Count Lymph % (Auto) 11.9 L [place] % (Auto) 8.6 H Lymph # [place] # 1.3 H Baso # Seg Neutrophils % 78.1 H Seg Neuts % (Manual) Lymphocytes % (Manual) Monocytes % (Manual) Eosinophils % (Manual) Basophils % (Manual) Nucleated RBC % Seg Neutrophils # 11.4 H Seg Neutrophils # Man Lymphocytes # (Manual) Monocytes # (Manual) Eosinophils # (Manual) Basophils # (Manual) PT INR Fibrinogen dRVVT Confirm Interp Factor V Activity POC ABG pH POC ABG pCO2 POC ABG pO2 ABG pO2 ABG HCO3 ABG Base Excess ABG Hemoglobin Oxyhemoglobin Sodium Potassium 5.1 H Chloride Carbon Dioxide 19 L BUN 78 H Creatinine 2.2 H Glucose 116 H POC Glucose 118 H Lactic Acid Calcium Phosphorus Magnesium Direct Bilirubin AST ALT Alkaline Phosphatase Lactate Dehydrogenase Troponin T C-Reactive Protein Total Protein Albumin Prealbumin Triglycerides Cholesterol LDL Cholesterol Direct HDL Cholesterol Urine pH Urine WBC (Auto) Urine Creatinine Urine Total Protein Fluid Total Protein Vancomycin Trough Rheumatoid Factor Complement C4 Miscellaneous Test Crossmatch 10/29/16 10/30/16 10/30/16 17:49 01:52 03:28 WBC RBC Hgb Hct MCV MCH MCHC RDW Plt Count Lymph % (Auto) [place] % (Auto) Lymph # [place] # Baso # Seg Neutrophils % Seg Neuts % (Manual) Lymphocytes % (Manual) Monocytes % (Manual) Eosinophils % (Manual) Basophils % (Manual) Nucleated RBC % Seg Neutrophils # Seg Neutrophils # Man Lymphocytes # (Manual) Monocytes # (Manual) Eosinophils # (Manual) Basophils # (Manual) PT INR Fibrinogen dRVVT Confirm Interp Factor V Activity POC ABG pH POC ABG pCO2 POC ABG pO2 ABG pO2 ABG HCO3 ABG Base Excess ABG Hemoglobin Oxyhemoglobin Sodium Potassium 5.4 H Chloride 97.5 L Carbon Dioxide 19 L BUN 90 H Creatinine 2.5 H Glucose POC Glucose 120 H 129 H Lactic Acid Calcium Phosphorus 5.20 H Magnesium Direct Bilirubin AST ALT Alkaline Phosphatase Lactate Dehydrogenase Troponin T C-Reactive Protein Total Protein Albumin Prealbumin Triglycerides Cholesterol LDL Cholesterol Direct HDL Cholesterol Urine pH Urine WBC (Auto) Urine Creatinine Urine Total Protein Fluid Total Protein Vancomycin Trough Rheumatoid Factor Complement C4 Miscellaneous Test Crossmatch 10/30/16 10/30/16 10/30/16 03:28 08:19 08:19 WBC 11.6 H 15.9 H RBC 2.75 L 2.82 L Hgb 7.9 L 8.3 L Hct 24.2 L 25.2 L MCV MCH MCHC RDW 16.7 H 17.2 H Plt Count Lymph % (Auto) [place] % (Auto) 9.8 H Lymph # [place] # 1.1 H Baso # Seg Neutrophils % 74.2 H Seg Neuts % (Manual) Lymphocytes % (Manual) Monocytes % (Manual) Eosinophils % (Manual) Basophils % (Manual) Nucleated RBC % Seg Neutrophils # 8.6 H Seg Neutrophils # Man Lymphocytes # (Manual) Monocytes # (Manual) Eosinophils # (Manual) Basophils # (Manual) PT INR Fibrinogen dRVVT Confirm Interp Factor V Activity POC ABG pH POC ABG pCO2 POC ABG pO2 ABG pO2 ABG HCO3 ABG Base Excess ABG Hemoglobin Oxyhemoglobin Sodium Potassium 5.3 H Chloride 97.4 L Carbon Dioxide 19 L BUN 93 H Creatinine 2.6 H Glucose POC Glucose Lactic Acid Calcium Phosphorus Magnesium Direct Bilirubin AST ALT Alkaline Phosphatase Lactate Dehydrogenase Troponin T C-Reactive Protein Total Protein Albumin Prealbumin Triglycerides Cholesterol LDL Cholesterol Direct HDL Cholesterol Urine pH Urine WBC (Auto) Urine Creatinine Urine Total Protein Fluid Total Protein Vancomycin Trough Rheumatoid Factor Complement C4 Miscellaneous Test Crossmatch 10/30/16 10/30/16 10/31/16 17:11 23:56 00:40 WBC RBC Hgb Hct MCV MCH MCHC RDW Plt Count Lymph % (Auto) [place] % (Auto) Lymph # [place] # Baso # Seg Neutrophils % Seg Neuts % (Manual) Lymphocytes % (Manual) Monocytes % (Manual) Eosinophils % (Manual) Basophils % (Manual) Nucleated RBC % Seg Neutrophils # Seg Neutrophils # Man Lymphocytes # (Manual) Monocytes # (Manual) Eosinophils # (Manual) Basophils # (Manual) PT INR Fibrinogen dRVVT Confirm Interp Factor V Activity POC ABG pH POC ABG pCO2 POC ABG pO2 ABG pO2 ABG HCO3 ABG Base Excess ABG Hemoglobin Oxyhemoglobin Sodium Potassium Chloride Carbon Dioxide BUN Creatinine Glucose POC Glucose 106 H 117 H 120 H Lactic Acid Calcium Phosphorus Magnesium Direct Bilirubin AST ALT Alkaline Phosphatase Lactate Dehydrogenase Troponin T C-Reactive Protein Total Protein Albumin Prealbumin Triglycerides Cholesterol LDL Cholesterol Direct HDL Cholesterol Urine pH Urine WBC (Auto) Urine Creatinine Urine Total Protein Fluid Total Protein Vancomycin Trough Rheumatoid Factor Complement C4 Miscellaneous Test Crossmatch 10/31/16 10/31/16 10/31/16 05:43 07:15 07:15 WBC 12.1 H RBC 2.63 L Hgb 7.7 L Hct 23.3 L MCV MCH MCHC RDW 16.7 H Plt Count Lymph % (Auto) 11.7 L [place] % (Auto) 7.7 H Lymph # [place] # 0.9 H Baso # Seg Neutrophils % 78.0 H Seg Neuts % (Manual) Lymphocytes % (Manual) Monocytes % (Manual) Eosinophils % (Manual) Basophils % (Manual) Nucleated RBC % Seg Neutrophils # 9.4 H Seg Neutrophils # Man Lymphocytes # (Manual) Monocytes # (Manual) Eosinophils # (Manual) Basophils # (Manual) PT INR Fibrinogen dRVVT Confirm Interp Factor V Activity POC ABG pH POC ABG pCO2 POC ABG pO2 ABG pO2 ABG HCO3 ABG Base Excess ABG Hemoglobin Oxyhemoglobin Sodium Potassium Chloride 96.4 L Carbon Dioxide 21 L BUN 99 H Creatinine 2.6 H Glucose 144 H POC Glucose 125 H Lactic Acid Calcium Phosphorus 4.80 H Magnesium Direct Bilirubin AST ALT Alkaline Phosphatase Lactate Dehydrogenase Troponin T C-Reactive Protein Total Protein Albumin Prealbumin Triglycerides Cholesterol LDL Cholesterol Direct HDL Cholesterol Urine pH Urine WBC (Auto) Urine Creatinine Urine Total Protein Fluid Total Protein Vancomycin Trough Rheumatoid Factor Complement C4 Miscellaneous Test Crossmatch 10/31/16 10/31/16 11/01/16 11:46 18:34 00:20 WBC RBC Hgb Hct MCV MCH MCHC RDW Plt Count Lymph % (Auto) [place] % (Auto) Lymph # [place] # Baso # Seg Neutrophils % Seg Neuts % (Manual) Lymphocytes % (Manual) Monocytes % (Manual) Eosinophils % (Manual) Basophils % (Manual) Nucleated RBC % Seg Neutrophils # Seg Neutrophils # Man Lymphocytes # (Manual) Monocytes # (Manual) Eosinophils # (Manual) Basophils # (Manual) PT INR Fibrinogen dRVVT Confirm Interp Factor V Activity POC ABG pH POC ABG pCO2 POC ABG pO2 ABG pO2 ABG HCO3 ABG Base Excess ABG Hemoglobin Oxyhemoglobin Sodium Potassium Chloride Carbon Dioxide BUN Creatinine Glucose POC Glucose 159 H 140 H 132 H Lactic Acid Calcium Phosphorus Magnesium Direct Bilirubin AST ALT Alkaline Phosphatase Lactate Dehydrogenase Troponin T C-Reactive Protein Total Protein Albumin Prealbumin Triglycerides Cholesterol LDL Cholesterol Direct HDL Cholesterol Urine pH Urine WBC (Auto) Urine Creatinine Urine Total Protein Fluid Total Protein Vancomycin Trough Rheumatoid Factor Complement C4 Miscellaneous Test Crossmatch 11/01/16 11/01/16 11/01/16 04:55 04:55 06:11 WBC 11.2 H RBC 2.68 L Hgb 7.5 L Hct 23.7 L MCV MCH MCHC RDW 16.1 H Plt Count Lymph % (Auto) [place] % (Auto) 9.8 H Lymph # [place] # 1.1 H Baso # Seg Neutrophils % 70.8 H Seg Neuts % (Manual) Lymphocytes % (Manual) Monocytes % (Manual) Eosinophils % (Manual) Basophils % (Manual) Nucleated RBC % Seg Neutrophils # 7.9 H Seg Neutrophils # Man Lymphocytes # (Manual) Monocytes # (Manual) Eosinophils # (Manual) Basophils # (Manual) PT INR Fibrinogen dRVVT Confirm Interp Factor V Activity POC ABG pH POC ABG pCO2 POC ABG pO2 ABG pO2 ABG HCO3 ABG Base Excess ABG Hemoglobin Oxyhemoglobin Sodium Potassium 3.3 L D Chloride Carbon Dioxide BUN 61 H Creatinine 1.9 H Glucose 114 H POC Glucose 115 H Lactic Acid Calcium Phosphorus 1.80 L D Magnesium Direct Bilirubin AST ALT Alkaline Phosphatase Lactate Dehydrogenase Troponin T C-Reactive Protein Total Protein Albumin Prealbumin Triglycerides Cholesterol LDL Cholesterol Direct HDL Cholesterol Urine pH Urine WBC (Auto) Urine Creatinine Urine Total Protein Fluid Total Protein Vancomycin Trough Rheumatoid Factor Complement C4 Miscellaneous Test Crossmatch 11/01/16 11/01/16 11/01/16 12:29 18:23 23:58 WBC RBC Hgb Hct MCV MCH MCHC RDW Plt Count Lymph % (Auto) [place] % (Auto) Lymph # [place] # Baso # Seg Neutrophils % Seg Neuts % (Manual) Lymphocytes % (Manual) Monocytes % (Manual) Eosinophils % (Manual) Basophils % (Manual) Nucleated RBC % Seg Neutrophils # Seg Neutrophils # Man Lymphocytes # (Manual) Monocytes # (Manual) Eosinophils # (Manual) Basophils # (Manual) PT INR Fibrinogen dRVVT Confirm Interp Factor V Activity POC ABG pH POC ABG pCO2 POC ABG pO2 ABG pO2 ABG HCO3 ABG Base Excess ABG Hemoglobin Oxyhemoglobin Sodium Potassium Chloride Carbon Dioxide BUN Creatinine Glucose POC Glucose 142 H 143 H 128 H Lactic Acid Calcium Phosphorus Magnesium Direct Bilirubin AST ALT Alkaline Phosphatase Lactate Dehydrogenase Troponin T C-Reactive Protein Total Protein Albumin Prealbumin Triglycerides Cholesterol LDL Cholesterol Direct HDL Cholesterol Urine pH Urine WBC (Auto) Urine Creatinine Urine Total Protein Fluid Total Protein Vancomycin Trough Rheumatoid Factor Complement C4 Miscellaneous Test Crossmatch 11/02/16 11/02/16 11/02/16 04:16 05:29 11:58 WBC RBC Hgb Hct MCV MCH MCHC RDW Plt Count Lymph % (Auto) [place] % (Auto) Lymph # [place] # Baso # Seg Neutrophils % Seg Neuts % (Manual) Lymphocytes % (Manual) Monocytes % (Manual) Eosinophils % (Manual) Basophils % (Manual) Nucleated RBC % Seg Neutrophils # Seg Neutrophils # Man Lymphocytes # (Manual) Monocytes # (Manual) Eosinophils # (Manual) Basophils # (Manual) PT INR Fibrinogen dRVVT Confirm Interp Factor V Activity POC ABG pH POC ABG pCO2 POC ABG pO2 ABG pO2 ABG HCO3 ABG Base Excess ABG Hemoglobin Oxyhemoglobin Sodium Potassium 3.1 L Chloride Carbon Dioxide BUN 73 H Creatinine 2.3 H Glucose 112 H POC Glucose 135 H 149 H Lactic Acid Calcium Phosphorus Magnesium Direct Bilirubin AST ALT Alkaline Phosphatase Lactate Dehydrogenase Troponin T C-Reactive Protein Total Protein Albumin Prealbumin Triglycerides Cholesterol LDL Cholesterol Direct HDL Cholesterol Urine pH Urine WBC (Auto) Urine Creatinine Urine Total Protein Fluid Total Protein Vancomycin Trough Rheumatoid Factor Complement C4 Miscellaneous Test Crossmatch 11/02/16 11/02/16 11/03/16 17:42 22:54 06:00 WBC RBC Hgb Hct MCV MCH MCHC RDW Plt Count Lymph % (Auto) [place] % (Auto) Lymph # [place] # Baso # Seg Neutrophils % Seg Neuts % (Manual) Lymphocytes % (Manual) Monocytes % (Manual) Eosinophils % (Manual) Basophils % (Manual) Nucleated RBC % Seg Neutrophils # Seg Neutrophils # Man Lymphocytes # (Manual) Monocytes # (Manual) Eosinophils # (Manual) Basophils # (Manual) PT INR Fibrinogen dRVVT Confirm Interp Factor V Activity POC ABG pH POC ABG pCO2 POC ABG pO2 ABG pO2 ABG HCO3 ABG Base Excess ABG Hemoglobin Oxyhemoglobin Sodium Potassium Chloride 96.7 L Carbon Dioxide BUN 41 H Creatinine 1.5 H Glucose 145 H POC Glucose 182 H 115 H Lactic Acid Calcium Phosphorus 1.60 L D Magnesium 1.50 L Direct Bilirubin AST ALT Alkaline Phosphatase Lactate Dehydrogenase Troponin T C-Reactive Protein Total Protein Albumin Prealbumin Triglycerides Cholesterol LDL Cholesterol Direct HDL Cholesterol Urine pH Urine WBC (Auto) Urine Creatinine Urine Total Protein Fluid Total Protein Vancomycin Trough Rheumatoid Factor Complement C4 Miscellaneous Test Crossmatch 11/03/16 11/03/16 11/03/16 11:53 17:45 23:37 WBC RBC Hgb Hct MCV MCH MCHC RDW Plt Count Lymph % (Auto) [place] % (Auto) Lymph # [place] # Baso # Seg Neutrophils % Seg Neuts % (Manual) Lymphocytes % (Manual) Monocytes % (Manual) Eosinophils % (Manual) Basophils % (Manual) Nucleated RBC % Seg Neutrophils # Seg Neutrophils # Man Lymphocytes # (Manual) Monocytes # (Manual) Eosinophils # (Manual) Basophils # (Manual) PT INR Fibrinogen dRVVT Confirm Interp Factor V Activity POC ABG pH POC ABG pCO2 POC ABG pO2 ABG pO2 ABG HCO3 ABG Base Excess ABG Hemoglobin Oxyhemoglobin Sodium Potassium Chloride Carbon Dioxide BUN Creatinine Glucose POC Glucose 131 H 134 H 113 H Lactic Acid Calcium Phosphorus Magnesium Direct Bilirubin AST ALT Alkaline Phosphatase Lactate Dehydrogenase Troponin T C-Reactive Protein Total Protein Albumin Prealbumin Triglycerides Cholesterol LDL Cholesterol Direct HDL Cholesterol Urine pH Urine WBC (Auto) Urine Creatinine Urine Total Protein Fluid Total Protein Vancomycin Trough Rheumatoid Factor Complement C4 Miscellaneous Test Crossmatch 11/04/16 11/04/16 11/04/16 05:41 06:00 12:10 WBC RBC Hgb Hct MCV MCH MCHC RDW Plt Count Lymph % (Auto) [place] % (Auto) Lymph # [place] # Baso # Seg Neutrophils % Seg Neuts % (Manual) Lymphocytes % (Manual) Monocytes % (Manual) Eosinophils % (Manual) Basophils % (Manual) Nucleated RBC % Seg Neutrophils # Seg Neutrophils # Man Lymphocytes # (Manual) Monocytes # (Manual) Eosinophils # (Manual) Basophils # (Manual) PT INR Fibrinogen dRVVT Confirm Interp Factor V Activity POC ABG pH POC ABG pCO2 POC ABG pO2 ABG pO2 ABG HCO3 ABG Base Excess ABG Hemoglobin Oxyhemoglobin Sodium Potassium Chloride 96.7 L Carbon Dioxide BUN 52 H Creatinine 1.9 H Glucose 126 H POC Glucose 137 H 191 H Lactic Acid Calcium Phosphorus Magnesium Direct Bilirubin AST ALT Alkaline Phosphatase Lactate Dehydrogenase Troponin T C-Reactive Protein Total Protein Albumin Prealbumin Triglycerides Cholesterol LDL Cholesterol Direct HDL Cholesterol Urine pH Urine WBC (Auto) Urine Creatinine Urine Total Protein Fluid Total Protein Vancomycin Trough Rheumatoid Factor Complement C4 Miscellaneous Test Crossmatch 11/04/16 11/05/16 11/05/16 22:57 03:10 05:10 WBC RBC Hgb Hct MCV MCH MCHC RDW Plt Count Lymph % (Auto) [place] % (Auto) Lymph # [place] # Baso # Seg Neutrophils % Seg Neuts % (Manual) Lymphocytes % (Manual) Monocytes % (Manual) Eosinophils % (Manual) Basophils % (Manual) Nucleated RBC % Seg Neutrophils # Seg Neutrophils # Man Lymphocytes # (Manual) Monocytes # (Manual) Eosinophils # (Manual) Basophils # (Manual) PT INR Fibrinogen dRVVT Confirm Interp Factor V Activity POC ABG pH POC ABG pCO2 POC ABG pO2 ABG pO2 ABG HCO3 ABG Base Excess ABG Hemoglobin Oxyhemoglobin Sodium 136 L Potassium Chloride 97.2 L Carbon Dioxide BUN 32 H Creatinine 1.3 H Glucose 123 H POC Glucose 125 H 108 H Lactic Acid Calcium 7.8 L Phosphorus Magnesium Direct Bilirubin AST ALT Alkaline Phosphatase Lactate Dehydrogenase Troponin T C-Reactive Protein Total Protein Albumin Prealbumin Triglycerides Cholesterol LDL Cholesterol Direct HDL Cholesterol Urine pH Urine WBC (Auto) Urine Creatinine Urine Total Protein Fluid Total Protein Vancomycin Trough Rheumatoid Factor Complement C4 Miscellaneous Test Crossmatch 11/05/16 11/05/16 11/05/16 12:23 13:09 13:25 WBC RBC Hgb Hct MCV MCH MCHC RDW Plt Count Lymph % (Auto) [place] % (Auto) Lymph # [place] # Baso # Seg Neutrophils % Seg Neuts % (Manual) Lymphocytes % (Manual) Monocytes % (Manual) Eosinophils % (Manual) Basophils % (Manual) Nucleated RBC % Seg Neutrophils # Seg Neutrophils # Man Lymphocytes # (Manual) Monocytes # (Manual) Eosinophils # (Manual) Basophils # (Manual) PT INR Fibrinogen dRVVT Confirm Interp Factor V Activity POC ABG pH POC ABG pCO2 POC ABG pO2 ABG pO2 ABG HCO3 ABG Base Excess ABG Hemoglobin Oxyhemoglobin Sodium Potassium Chloride Carbon Dioxide BUN Creatinine Glucose POC Glucose 124 H Lactic Acid Calcium Phosphorus Magnesium Direct Bilirubin AST ALT Alkaline Phosphatase Lactate Dehydrogenase Troponin T C-Reactive Protein 11.40 H Total Protein Albumin Prealbumin Triglycerides Cholesterol LDL Cholesterol Direct HDL Cholesterol Urine pH 9.0 H Urine WBC (Auto) Urine Creatinine Urine Total Protein Fluid Total Protein Vancomycin Trough Rheumatoid Factor Complement C4 Miscellaneous Test Crossmatch 11/05/16 11/05/16 11/05/16 13:25 17:54 23:42 WBC RBC Hgb Hct MCV MCH MCHC RDW Plt Count Lymph % (Auto) [place] % (Auto) Lymph # [place] # Baso # Seg Neutrophils % Seg Neuts % (Manual) Lymphocytes % (Manual) Monocytes % (Manual) Eosinophils % (Manual) Basophils % (Manual) Nucleated RBC % Seg Neutrophils # Seg Neutrophils # Man Lymphocytes # (Manual) Monocytes # (Manual) Eosinophils # (Manual) Basophils # (Manual) PT INR Fibrinogen dRVVT Confirm Interp Factor V Activity POC ABG pH POC ABG pCO2 POC ABG pO2 ABG pO2 ABG HCO3 ABG Base Excess ABG Hemoglobin Oxyhemoglobin Sodium Potassium Chloride Carbon Dioxide BUN Creatinine Glucose POC Glucose 114 H 134 H Lactic Acid Calcium Phosphorus Magnesium Direct Bilirubin AST ALT Alkaline Phosphatase Lactate Dehydrogenase Troponin T C-Reactive Protein Total Protein Albumin Prealbumin Triglycerides Cholesterol LDL Cholesterol Direct HDL Cholesterol Urine pH Urine WBC (Auto) Urine Creatinine Urine Total Protein Fluid Total Protein Vancomycin Trough Rheumatoid Factor Complement C4 Miscellaneous Test Flexitest 1 H Crossmatch 11/06/16 11/06/16 11/06/16 04:56 06:25 06:25 WBC RBC 2.50 L Hgb 7.3 L Hct 22.5 L MCV MCH MCHC RDW 16.9 H Plt Count Lymph % (Auto) [place] % (Auto) 10.5 H Lymph # [place] # 1.1 H Baso # Seg Neutrophils % Seg Neuts % (Manual) Lymphocytes % (Manual) Monocytes % (Manual) Eosinophils % (Manual) Basophils % (Manual) Nucleated RBC % Seg Neutrophils # Seg Neutrophils # Man Lymphocytes # (Manual) Monocytes # (Manual) Eosinophils # (Manual) Basophils # (Manual) PT INR Fibrinogen dRVVT Confirm Interp Factor V Activity POC ABG pH POC ABG pCO2 POC ABG pO2 ABG pO2 ABG HCO3 ABG Base Excess ABG Hemoglobin Oxyhemoglobin Sodium Potassium 5.1 H Chloride 95.9 L Carbon Dioxide BUN 52 H Creatinine 1.8 H Glucose 117 H POC Glucose 120 H Lactic Acid Calcium Phosphorus Magnesium Direct Bilirubin AST 103 H ALT 77 H Alkaline Phosphatase 285 H Lactate Dehydrogenase Troponin T C-Reactive Protein Total Protein 6.2 L Albumin 1.8 L Prealbumin 0.180 L Triglycerides Cholesterol LDL Cholesterol Direct HDL Cholesterol Urine pH Urine WBC (Auto) Urine Creatinine Urine Total Protein Fluid Total Protein Vancomycin Trough Rheumatoid Factor Complement C4 Miscellaneous Test Crossmatch 11/06/16 11/06/16 11/06/16 11:56 17:14 23:52 WBC RBC Hgb Hct MCV MCH MCHC RDW Plt Count Lymph % (Auto) [place] % (Auto) Lymph # [place] # Baso # Seg Neutrophils % Seg Neuts % (Manual) Lymphocytes % (Manual) Monocytes % (Manual) Eosinophils % (Manual) Basophils % (Manual) Nucleated RBC % Seg Neutrophils # Seg Neutrophils # Man Lymphocytes # (Manual) Monocytes # (Manual) Eosinophils # (Manual) Basophils # (Manual) PT INR Fibrinogen dRVVT Confirm Interp Factor V Activity POC ABG pH POC ABG pCO2 POC ABG pO2 ABG pO2 ABG HCO3 ABG Base Excess ABG Hemoglobin Oxyhemoglobin Sodium Potassium Chloride Carbon Dioxide BUN Creatinine Glucose POC Glucose 141 H 125 H 130 H Lactic Acid Calcium Phosphorus Magnesium Direct Bilirubin AST ALT Alkaline Phosphatase Lactate Dehydrogenase Troponin T C-Reactive Protein Total Protein Albumin Prealbumin Triglycerides Cholesterol LDL Cholesterol Direct HDL Cholesterol Urine pH Urine WBC (Auto) Urine Creatinine Urine Total Protein Fluid Total Protein Vancomycin Trough Rheumatoid Factor Complement C4 Miscellaneous Test Crossmatch 11/07/16 11/07/16 11/07/16 06:30 06:30 09:37 WBC RBC 2.18 L Hgb 6.3 L Hct 19.7 L* MCV MCH MCHC RDW 16.8 H Plt Count Lymph % (Auto) [place] % (Auto) 10.0 H Lymph # [place] # 1.0 H Baso # Seg Neutrophils % Seg Neuts % (Manual) Lymphocytes % (Manual) Monocytes % (Manual) Eosinophils % (Manual) Basophils % (Manual) Nucleated RBC % Seg Neutrophils # Seg Neutrophils # Man Lymphocytes # (Manual) Monocytes # (Manual) Eosinophils # (Manual) Basophils # (Manual) PT INR Fibrinogen dRVVT Confirm Interp Factor V Activity POC ABG pH POC ABG pCO2 POC ABG pO2 ABG pO2 ABG HCO3 ABG Base Excess ABG Hemoglobin Oxyhemoglobin Sodium 135 L Potassium Chloride 95.6 L Carbon Dioxide BUN 70 H Creatinine 2.0 H Glucose 126 H POC Glucose Lactic Acid Calcium Phosphorus Magnesium Direct Bilirubin AST ALT Alkaline Phosphatase Lactate Dehydrogenase Troponin T C-Reactive Protein Total Protein Albumin Prealbumin Triglycerides Cholesterol LDL Cholesterol Direct HDL Cholesterol Urine pH Urine WBC (Auto) Urine Creatinine Urine Total Protein Fluid Total Protein Vancomycin Trough Rheumatoid Factor Complement C4 Miscellaneous Test Crossmatch See Detail 11/07/16 11/07/16 11/07/16 12:52 18:51 21:26 WBC RBC Hgb Hct MCV MCH MCHC RDW Plt Count Lymph % (Auto) [place] % (Auto) Lymph # [place] # Baso # Seg Neutrophils % Seg Neuts % (Manual) Lymphocytes % (Manual) Monocytes % (Manual) Eosinophils % (Manual) Basophils % (Manual) Nucleated RBC % Seg Neutrophils # Seg Neutrophils # Man Lymphocytes # (Manual) Monocytes # (Manual) Eosinophils # (Manual) Basophils # (Manual) PT INR Fibrinogen dRVVT Confirm Interp Factor V Activity POC ABG pH 7.523 H POC ABG pCO2 34.6 L POC ABG pO2 53 L ABG pO2 ABG HCO3 ABG Base Excess ABG Hemoglobin Oxyhemoglobin Sodium Potassium Chloride Carbon Dioxide BUN Creatinine Glucose POC Glucose 142 H 155 H Lactic Acid Calcium Phosphorus Magnesium Direct Bilirubin AST ALT Alkaline Phosphatase Lactate Dehydrogenase Troponin T C-Reactive Protein Total Protein Albumin Prealbumin Triglycerides Cholesterol LDL Cholesterol Direct HDL Cholesterol Urine pH Urine WBC (Auto) Urine Creatinine Urine Total Protein Fluid Total Protein Vancomycin Trough Rheumatoid Factor Complement C4 Miscellaneous Test Crossmatch 11/07/16 11/08/16 11/08/16 21:34 13:03 23:37 WBC RBC 2.63 L Hgb 7.7 L Hct 22.7 L MCV MCH MCHC RDW 17.0 H Plt Count Lymph % (Auto) [place] % (Auto) Lymph # [place] # Baso # Seg Neutrophils % Seg Neuts % (Manual) Lymphocytes % (Manual) Monocytes % (Manual) Eosinophils % (Manual) Basophils % (Manual) Nucleated RBC % Seg Neutrophils # Seg Neutrophils # Man Lymphocytes # (Manual) Monocytes # (Manual) Eosinophils # (Manual) Basophils # (Manual) PT INR Fibrinogen dRVVT Confirm Interp Factor V Activity POC ABG pH 7.478 H POC ABG pCO2 34.0 L POC ABG pO2 50 L ABG pO2 ABG HCO3 ABG Base Excess ABG Hemoglobin Oxyhemoglobin Sodium Potassium Chloride Carbon Dioxide BUN Creatinine Glucose POC Glucose 113 H Lactic Acid Calcium Phosphorus Magnesium Direct Bilirubin AST ALT Alkaline Phosphatase Lactate Dehydrogenase Troponin T C-Reactive Protein Total Protein Albumin Prealbumin Triglycerides Cholesterol LDL Cholesterol Direct HDL Cholesterol Urine pH Urine WBC (Auto) Urine Creatinine Urine Total Protein Fluid Total Protein Vancomycin Trough Rheumatoid Factor Complement C4 Miscellaneous Test Crossmatch 11/09/16 11/09/16 11/09/16 04:35 10:15 18:21 WBC RBC 2.68 L Hgb 7.8 L Hct 23.3 L MCV MCH MCHC RDW 17.0 H Plt Count Lymph % (Auto) [place] % (Auto) 12.1 H Lymph # [place] # 1.1 H Baso # Seg Neutrophils % Seg Neuts % (Manual) Lymphocytes % (Manual) Monocytes % (Manual) Eosinophils % (Manual) Basophils % (Manual) Nucleated RBC % Seg Neutrophils # Seg Neutrophils # Man Lymphocytes # (Manual) Monocytes # (Manual) Eosinophils # (Manual) Basophils # (Manual) PT INR Fibrinogen dRVVT Confirm Interp Factor V Activity POC ABG pH POC ABG pCO2 POC ABG pO2 ABG pO2 ABG HCO3 ABG Base Excess ABG Hemoglobin Oxyhemoglobin Sodium Potassium Chloride Carbon Dioxide BUN 51 H Creatinine 1.8 H Glucose POC Glucose 60 L Lactic Acid Calcium 8.3 L Phosphorus Magnesium Direct Bilirubin AST ALT Alkaline Phosphatase Lactate Dehydrogenase Troponin T C-Reactive Protein Total Protein Albumin Prealbumin Triglycerides Cholesterol LDL Cholesterol Direct HDL Cholesterol Urine pH Urine WBC (Auto) Urine Creatinine Urine Total Protein Fluid Total Protein Vancomycin Trough Rheumatoid Factor Complement C4 Miscellaneous Test Crossmatch 11/09/16 11/10/16 11/10/16 18:55 07:00 11:51 WBC RBC Hgb Hct MCV MCH MCHC RDW Plt Count Lymph % (Auto) [place] % (Auto) Lymph # [place] # Baso # Seg Neutrophils % Seg Neuts % (Manual) Lymphocytes % (Manual) Monocytes % (Manual) Eosinophils % (Manual) Basophils % (Manual) Nucleated RBC % Seg Neutrophils # Seg Neutrophils # Man Lymphocytes # (Manual) Monocytes # (Manual) Eosinophils # (Manual) Basophils # (Manual) PT INR Fibrinogen dRVVT Confirm Interp Factor V Activity POC ABG pH POC ABG pCO2 POC ABG pO2 ABG pO2 ABG HCO3 ABG Base Excess ABG Hemoglobin Oxyhemoglobin Sodium Potassium 3.0 L D Chloride 97.4 L Carbon Dioxide BUN 28 H Creatinine 1.3 H Glucose POC Glucose 68 L 120 H Lactic Acid Calcium 7.8 L Phosphorus Magnesium Direct Bilirubin AST ALT Alkaline Phosphatase Lactate Dehydrogenase Troponin T C-Reactive Protein Total Protein Albumin Prealbumin Triglycerides Cholesterol LDL Cholesterol Direct HDL Cholesterol Urine pH Urine WBC (Auto) Urine Creatinine Urine Total Protein Fluid Total Protein Vancomycin Trough Rheumatoid Factor Complement C4 Miscellaneous Test Crossmatch 11/10/16 11/11/16 11/11/16 14:20 06:59 06:59 WBC RBC 2.81 L Hgb 8.1 L Hct 24.4 L MCV MCH MCHC RDW 16.4 H Plt Count Lymph % (Auto) [place] % (Auto) 10.8 H Lymph # [place] # 1.0 H Baso # Seg Neutrophils % Seg Neuts % (Manual) Lymphocytes % (Manual) Monocytes % (Manual) Eosinophils % (Manual) Basophils % (Manual) Nucleated RBC % Seg Neutrophils # Seg Neutrophils # Man Lymphocytes # (Manual) Monocytes # (Manual) Eosinophils # (Manual) Basophils # (Manual) PT INR Fibrinogen dRVVT Confirm Interp Factor V Activity POC ABG pH POC ABG pCO2 POC ABG pO2 ABG pO2 ABG HCO3 ABG Base Excess ABG Hemoglobin Oxyhemoglobin Sodium Potassium Chloride Carbon Dioxide BUN Creatinine Glucose POC Glucose Lactic Acid Calcium Phosphorus Magnesium Direct Bilirubin AST ALT Alkaline Phosphatase Lactate Dehydrogenase 196 H Troponin T C-Reactive Protein Total Protein 6.1 L Albumin Prealbumin Triglycerides Cholesterol LDL Cholesterol Direct HDL Cholesterol Urine pH Urine WBC (Auto) Urine Creatinine Urine Total Protein Fluid Total Protein < 3.0 L Vancomycin Trough Rheumatoid Factor Complement C4 Miscellaneous Test Crossmatch 11/11/16 11/11/16 11/12/16 06:59 09:50 04:00 WBC RBC Hgb Hct MCV MCH MCHC RDW Plt Count Lymph % (Auto) [place] % (Auto) Lymph # [place] # Baso # Seg Neutrophils % Seg Neuts % (Manual) Lymphocytes % (Manual) Monocytes % (Manual) Eosinophils % (Manual) Basophils % (Manual) Nucleated RBC % Seg Neutrophils # Seg Neutrophils # Man Lymphocytes # (Manual) Monocytes # (Manual) Eosinophils # (Manual) Basophils # (Manual) PT INR 1.18 H Fibrinogen dRVVT Confirm Interp Factor V Activity POC ABG pH POC ABG pCO2 POC ABG pO2 ABG pO2 ABG HCO3 ABG Base Excess ABG Hemoglobin Oxyhemoglobin Sodium 136 L 133 L Potassium Chloride 96.1 L 94.8 L Carbon Dioxide 21 L BUN 37 H 42 H Creatinine 1.8 H 2.0 H Glucose POC Glucose Lactic Acid Calcium Phosphorus Magnesium Direct Bilirubin AST ALT Alkaline Phosphatase Lactate Dehydrogenase Troponin T C-Reactive Protein Total Protein Albumin Prealbumin Triglycerides Cholesterol LDL Cholesterol Direct HDL Cholesterol Urine pH Urine WBC (Auto) Urine Creatinine Urine Total Protein Fluid Total Protein Vancomycin Trough Rheumatoid Factor Complement C4 Miscellaneous Test Crossmatch 11/12/16 11/12/16 11/13/16 04:00 23:55 05:53 WBC RBC Hgb 8.9 L Hct 27.2 L MCV MCH MCHC RDW Plt Count Lymph % (Auto) [place] % (Auto) Lymph # [place] # Baso # Seg Neutrophils % Seg Neuts % (Manual) Lymphocytes % (Manual) Monocytes % (Manual) Eosinophils % (Manual) Basophils % (Manual) Nucleated RBC % Seg Neutrophils # Seg Neutrophils # Man Lymphocytes # (Manual) Monocytes # (Manual) Eosinophils # (Manual) Basophils # (Manual) PT INR Fibrinogen dRVVT Confirm Interp Factor V Activity POC ABG pH POC ABG pCO2 POC ABG pO2 ABG pO2 ABG HCO3 ABG Base Excess ABG Hemoglobin Oxyhemoglobin Sodium Potassium Chloride Carbon Dioxide BUN Creatinine Glucose POC Glucose 132 H 120 H Lactic Acid Calcium Phosphorus Magnesium Direct Bilirubin AST ALT Alkaline Phosphatase Lactate Dehydrogenase Troponin T C-Reactive Protein Total Protein Albumin Prealbumin Triglycerides Cholesterol LDL Cholesterol Direct HDL Cholesterol Urine pH Urine WBC (Auto) Urine Creatinine Urine Total Protein Fluid Total Protein Vancomycin Trough Rheumatoid Factor Complement C4 Miscellaneous Test Crossmatch 11/13/16 11/13/16 11/13/16 11:43 17:09 23:41 WBC RBC Hgb Hct MCV MCH MCHC RDW Plt Count Lymph % (Auto) [place] % (Auto) Lymph # [place] # Baso # Seg Neutrophils % Seg Neuts % (Manual) Lymphocytes % (Manual) Monocytes % (Manual) Eosinophils % (Manual) Basophils % (Manual) Nucleated RBC % Seg Neutrophils # Seg Neutrophils # Man Lymphocytes # (Manual) Monocytes # (Manual) Eosinophils # (Manual) Basophils # (Manual) PT INR Fibrinogen dRVVT Confirm Interp Factor V Activity POC ABG pH POC ABG pCO2 POC ABG pO2 ABG pO2 ABG HCO3 ABG Base Excess ABG Hemoglobin Oxyhemoglobin Sodium Potassium Chloride Carbon Dioxide BUN Creatinine Glucose POC Glucose 114 H 113 H 108 H Lactic Acid Calcium Phosphorus Magnesium Direct Bilirubin AST ALT Alkaline Phosphatase Lactate Dehydrogenase Troponin T C-Reactive Protein Total Protein Albumin Prealbumin Triglycerides Cholesterol LDL Cholesterol Direct HDL Cholesterol Urine pH Urine WBC (Auto) Urine Creatinine Urine Total Protein Fluid Total Protein Vancomycin Trough Rheumatoid Factor Complement C4 Miscellaneous Test Crossmatch 11/13/16 11/15/16 11/15/16 Unknown 00:37 03:30 WBC 11.2 H RBC 2.72 L Hgb 7.6 L Hct 23.4 L MCV MCH MCHC RDW 16.5 H Plt Count Lymph % (Auto) [place] % (Auto) Lymph # [place] # Baso # Seg Neutrophils % Seg Neuts % (Manual) Lymphocytes % (Manual) Monocytes % (Manual) Eosinophils % (Manual) Basophils % (Manual) Nucleated RBC % Seg Neutrophils # Seg Neutrophils # Man Lymphocytes # (Manual) Monocytes # (Manual) Eosinophils # (Manual) Basophils # (Manual) PT INR Fibrinogen dRVVT Confirm Interp Factor V Activity POC ABG pH POC ABG pCO2 POC ABG pO2 ABG pO2 ABG HCO3 ABG Base Excess ABG Hemoglobin Oxyhemoglobin Sodium 135 L Potassium Chloride 95.2 L Carbon Dioxide BUN 52 H Creatinine 2.2 H Glucose POC Glucose 108 H Lactic Acid Calcium Phosphorus Magnesium Direct Bilirubin AST ALT Alkaline Phosphatase Lactate Dehydrogenase Troponin T C-Reactive Protein Total Protein Albumin Prealbumin Triglycerides Cholesterol LDL Cholesterol Direct HDL Cholesterol Urine pH Urine WBC (Auto) Urine Creatinine Urine Total Protein Fluid Total Protein Vancomycin Trough Rheumatoid Factor Complement C4 Miscellaneous Test Crossmatch 11/15/16 11/15/16 11/15/16 03:30 05:04 11:50 WBC RBC Hgb Hct MCV MCH MCHC RDW Plt Count Lymph % (Auto) [place] % (Auto) Lymph # [place] # Baso # Seg Neutrophils % Seg Neuts % (Manual) Lymphocytes % (Manual) Monocytes % (Manual) Eosinophils % (Manual) Basophils % (Manual) Nucleated RBC % Seg Neutrophils # Seg Neutrophils # Man Lymphocytes # (Manual) Monocytes # (Manual) Eosinophils # (Manual) Basophils # (Manual) PT INR Fibrinogen dRVVT Confirm Interp Factor V Activity POC ABG pH POC ABG pCO2 POC ABG pO2 ABG pO2 ABG HCO3 ABG Base Excess ABG Hemoglobin Oxyhemoglobin Sodium Potassium 3.4 L Chloride Carbon Dioxide BUN 25 H Creatinine 1.5 H Glucose 103 H POC Glucose 121 H 144 H Lactic Acid Calcium Phosphorus Magnesium Direct Bilirubin AST ALT Alkaline Phosphatase Lactate Dehydrogenase Troponin T C-Reactive Protein Total Protein Albumin Prealbumin Triglycerides Cholesterol LDL Cholesterol Direct HDL Cholesterol Urine pH Urine WBC (Auto) Urine Creatinine Urine Total Protein Fluid Total Protein Vancomycin Trough Rheumatoid Factor Complement C4 Miscellaneous Test Crossmatch 11/15/16 11/15/16 11/16/16 21:28 23:20 11:44 WBC RBC Hgb Hct MCV MCH MCHC RDW Plt Count Lymph % (Auto) [place] % (Auto) Lymph # [place] # Baso # Seg Neutrophils % Seg Neuts % (Manual) Lymphocytes % (Manual) Monocytes % (Manual) Eosinophils % (Manual) Basophils % (Manual) Nucleated RBC % Seg Neutrophils # Seg Neutrophils # Man Lymphocytes # (Manual) Monocytes # (Manual) Eosinophils # (Manual) Basophils # (Manual) PT INR Fibrinogen dRVVT Confirm Interp Factor V Activity POC ABG pH 7.462 H POC ABG pCO2 POC ABG pO2 71 L ABG pO2 ABG HCO3 ABG Base Excess ABG Hemoglobin Oxyhemoglobin Sodium Potassium Chloride Carbon Dioxide BUN Creatinine Glucose POC Glucose 116 H 133 H Lactic Acid Calcium Phosphorus Magnesium Direct Bilirubin AST ALT Alkaline Phosphatase Lactate Dehydrogenase Troponin T C-Reactive Protein Total Protein Albumin Prealbumin Triglycerides Cholesterol LDL Cholesterol Direct HDL Cholesterol Urine pH Urine WBC (Auto) Urine Creatinine Urine Total Protein Fluid Total Protein Vancomycin Trough Rheumatoid Factor Complement C4 Miscellaneous Test Crossmatch 11/16/16 11/16/16 11/16/16 12:20 17:05 23:35 WBC 11.7 H RBC 2.73 L Hgb 7.6 L Hct 23.7 L MCV MCH MCHC RDW 16.6 H Plt Count Lymph % (Auto) [place] % (Auto) Lymph # [place] # Baso # Seg Neutrophils % Seg Neuts % (Manual) Lymphocytes % (Manual) Monocytes % (Manual) Eosinophils % (Manual) Basophils % (Manual) Nucleated RBC % Seg Neutrophils # Seg Neutrophils # Man Lymphocytes # (Manual) Monocytes # (Manual) Eosinophils # (Manual) Basophils # (Manual) PT INR Fibrinogen dRVVT Confirm Interp Factor V Activity POC ABG pH POC ABG pCO2 POC ABG pO2 ABG pO2 ABG HCO3 ABG Base Excess ABG Hemoglobin Oxyhemoglobin Sodium Potassium Chloride Carbon Dioxide BUN Creatinine Glucose POC Glucose 154 H 125 H Lactic Acid Calcium Phosphorus Magnesium Direct Bilirubin AST ALT Alkaline Phosphatase Lactate Dehydrogenase Troponin T C-Reactive Protein Total Protein Albumin Prealbumin Triglycerides Cholesterol LDL Cholesterol Direct HDL Cholesterol Urine pH Urine WBC (Auto) Urine Creatinine Urine Total Protein Fluid Total Protein Vancomycin Trough Rheumatoid Factor Complement C4 Miscellaneous Test Crossmatch 11/17/16 11/17/16 11/17/16 03:20 03:20 03:20 WBC RBC 2.55 L Hgb 7.3 L Hct 21.9 L MCV MCH MCHC RDW 16.6 H Plt Count Lymph % (Auto) [place] % (Auto) 11.5 H Lymph # [place] # 1.1 H Baso # Seg Neutrophils % Seg Neuts % (Manual) Lymphocytes % (Manual) Monocytes % (Manual) Eosinophils % (Manual) Basophils % (Manual) Nucleated RBC % Seg Neutrophils # Seg Neutrophils # Man Lymphocytes # (Manual) Monocytes # (Manual) Eosinophils # (Manual) Basophils # (Manual) PT 16.8 H INR 1.37 H Fibrinogen dRVVT Confirm Interp Factor V Activity POC ABG pH POC ABG pCO2 POC ABG pO2 ABG pO2 ABG HCO3 ABG Base Excess ABG Hemoglobin Oxyhemoglobin Sodium Potassium 3.5 L Chloride Carbon Dioxide BUN 21 H Creatinine Glucose POC Glucose Lactic Acid Calcium 7.9 L Phosphorus Magnesium Direct Bilirubin AST ALT Alkaline Phosphatase Lactate Dehydrogenase Troponin T C-Reactive Protein Total Protein Albumin Prealbumin Triglycerides Cholesterol LDL Cholesterol Direct HDL Cholesterol Urine pH Urine WBC (Auto) Urine Creatinine Urine Total Protein Fluid Total Protein Vancomycin Trough Rheumatoid Factor Complement C4 Miscellaneous Test Crossmatch 11/17/16 11/17/16 11/17/16 06:34 11:21 21:22 WBC RBC Hgb Hct MCV MCH MCHC RDW Plt Count Lymph % (Auto) [place] % (Auto) Lymph # [place] # Baso # Seg Neutrophils % Seg Neuts % (Manual) Lymphocytes % (Manual) Monocytes % (Manual) Eosinophils % (Manual) Basophils % (Manual) Nucleated RBC % Seg Neutrophils # Seg Neutrophils # Man Lymphocytes # (Manual) Monocytes # (Manual) Eosinophils # (Manual) Basophils # (Manual) PT INR Fibrinogen dRVVT Confirm Interp Factor V Activity POC ABG pH 7.467 H POC ABG pCO2 POC ABG pO2 73 L ABG pO2 ABG HCO3 ABG Base Excess ABG Hemoglobin Oxyhemoglobin Sodium Potassium Chloride Carbon Dioxide BUN Creatinine Glucose POC Glucose 121 H 119 H Lactic Acid Calcium Phosphorus Magnesium Direct Bilirubin AST ALT Alkaline Phosphatase Lactate Dehydrogenase Troponin T C-Reactive Protein Total Protein Albumin Prealbumin Triglycerides Cholesterol LDL Cholesterol Direct HDL Cholesterol Urine pH Urine WBC (Auto) Urine Creatinine Urine Total Protein Fluid Total Protein Vancomycin Trough Rheumatoid Factor Complement C4 Miscellaneous Test Crossmatch 11/18/16 11/18/16 11/19/16 12:16 17:19 00:00 WBC RBC Hgb Hct MCV MCH MCHC RDW Plt Count Lymph % (Auto) [place] % (Auto) Lymph # [place] # Baso # Seg Neutrophils % Seg Neuts % (Manual) Lymphocytes % (Manual) Monocytes % (Manual) Eosinophils % (Manual) Basophils % (Manual) Nucleated RBC % Seg Neutrophils # Seg Neutrophils # Man Lymphocytes # (Manual) Monocytes # (Manual) Eosinophils # (Manual) Basophils # (Manual) PT INR Fibrinogen dRVVT Confirm Interp Factor V Activity POC ABG pH POC ABG pCO2 POC ABG pO2 ABG pO2 ABG HCO3 ABG Base Excess ABG Hemoglobin Oxyhemoglobin Sodium Potassium Chloride Carbon Dioxide BUN Creatinine Glucose POC Glucose 124 H 162 H 139 H Lactic Acid Calcium Phosphorus Magnesium Direct Bilirubin AST ALT Alkaline Phosphatase Lactate Dehydrogenase Troponin T C-Reactive Protein Total Protein Albumin Prealbumin Triglycerides Cholesterol LDL Cholesterol Direct HDL Cholesterol Urine pH Urine WBC (Auto) Urine Creatinine Urine Total Protein Fluid Total Protein Vancomycin Trough Rheumatoid Factor Complement C4 Miscellaneous Test Crossmatch 11/19/16 11/19/16 11/20/16 05:00 12:43 00:40 WBC RBC Hgb Hct MCV MCH MCHC RDW Plt Count Lymph % (Auto) [place] % (Auto) Lymph # [place] # Baso # Seg Neutrophils % Seg Neuts % (Manual) Lymphocytes % (Manual) Monocytes % (Manual) Eosinophils % (Manual) Basophils % (Manual) Nucleated RBC % Seg Neutrophils # Seg Neutrophils # Man Lymphocytes # (Manual) Monocytes # (Manual) Eosinophils # (Manual) Basophils # (Manual) PT INR Fibrinogen dRVVT Confirm Interp Factor V Activity POC ABG pH POC ABG pCO2 POC ABG pO2 ABG pO2 ABG HCO3 ABG Base Excess ABG Hemoglobin Oxyhemoglobin Sodium Potassium Chloride Carbon Dioxide BUN Creatinine Glucose POC Glucose 110 H 125 H 136 H Lactic Acid Calcium Phosphorus Magnesium Direct Bilirubin AST ALT Alkaline Phosphatase Lactate Dehydrogenase Troponin T C-Reactive Protein Total Protein Albumin Prealbumin Triglycerides Cholesterol LDL Cholesterol Direct HDL Cholesterol Urine pH Urine WBC (Auto) Urine Creatinine Urine Total Protein Fluid Total Protein Vancomycin Trough Rheumatoid Factor Complement C4 Miscellaneous Test Crossmatch 11/20/16 11/20/16 11/20/16 05:00 05:00 05:51 WBC 13.1 H RBC 2.74 L Hgb 7.7 L Hct 23.6 L MCV MCH MCHC RDW 16.9 H Plt Count Lymph % (Auto) [place] % (Auto) 10.8 H Lymph # [place] # 1.4 H Baso # Seg Neutrophils % Seg Neuts % (Manual) Lymphocytes % (Manual) Monocytes % (Manual) Eosinophils % (Manual) Basophils % (Manual) Nucleated RBC % Seg Neutrophils # 7.9 H Seg Neutrophils # Man Lymphocytes # (Manual) Monocytes # (Manual) Eosinophils # (Manual) Basophils # (Manual) PT INR Fibrinogen dRVVT Confirm Interp Factor V Activity POC ABG pH POC ABG pCO2 POC ABG pO2 ABG pO2 ABG HCO3 ABG Base Excess ABG Hemoglobin Oxyhemoglobin Sodium Potassium Chloride Carbon Dioxide BUN 31 H Creatinine 1.8 H Glucose 129 H POC Glucose 133 H Lactic Acid Calcium Phosphorus Magnesium Direct Bilirubin AST ALT Alkaline Phosphatase Lactate Dehydrogenase Troponin T C-Reactive Protein Total Protein Albumin Prealbumin Triglycerides Cholesterol LDL Cholesterol Direct HDL Cholesterol Urine pH Urine WBC (Auto) Urine Creatinine Urine Total Protein Fluid Total Protein Vancomycin Trough Rheumatoid Factor Complement C4 Miscellaneous Test Crossmatch 11/20/16 11/20/16 11/21/16 12:40 18:10 01:20 WBC RBC Hgb Hct MCV MCH MCHC RDW Plt Count Lymph % (Auto) [place] % (Auto) Lymph # [place] # Baso # Seg Neutrophils % Seg Neuts % (Manual) Lymphocytes % (Manual) Monocytes % (Manual) Eosinophils % (Manual) Basophils % (Manual) Nucleated RBC % Seg Neutrophils # Seg Neutrophils # Man Lymphocytes # (Manual) Monocytes # (Manual) Eosinophils # (Manual) Basophils # (Manual) PT INR Fibrinogen dRVVT Confirm Interp Factor V Activity POC ABG pH POC ABG pCO2 POC ABG pO2 ABG pO2 ABG HCO3 ABG Base Excess ABG Hemoglobin Oxyhemoglobin Sodium Potassium Chloride Carbon Dioxide BUN Creatinine Glucose POC Glucose 134 H 138 H 136 H Lactic Acid Calcium Phosphorus Magnesium Direct Bilirubin AST ALT Alkaline Phosphatase Lactate Dehydrogenase Troponin T C-Reactive Protein Total Protein Albumin Prealbumin Triglycerides Cholesterol LDL Cholesterol Direct HDL Cholesterol Urine pH Urine WBC (Auto) Urine Creatinine Urine Total Protein Fluid Total Protein Vancomycin Trough Rheumatoid Factor Complement C4 Miscellaneous Test Crossmatch 11/21/16 11/21/16 11/21/16 07:04 07:45 07:45 WBC 22.0 H RBC 2.91 L Hgb 8.2 L Hct 25.4 L MCV MCH MCHC RDW 17.1 H Plt Count Lymph % (Auto) [place] % (Auto) Lymph # [place] # Baso # Seg Neutrophils % Seg Neuts % (Manual) Lymphocytes % (Manual) 8.0 L Monocytes % (Manual) Eosinophils % (Manual) Basophils % (Manual) Nucleated RBC % Seg Neutrophils # Seg Neutrophils # Man 14.7 H Lymphocytes # (Manual) Monocytes # (Manual) 1.1 H Eosinophils # (Manual) Basophils # (Manual) PT INR Fibrinogen dRVVT Confirm Interp Factor V Activity POC ABG pH POC ABG pCO2 POC ABG pO2 ABG pO2 ABG HCO3 ABG Base Excess ABG Hemoglobin Oxyhemoglobin Sodium Potassium Chloride Carbon Dioxide BUN 42 H Creatinine 2.0 H Glucose POC Glucose 108 H Lactic Acid Calcium Phosphorus Magnesium Direct Bilirubin AST ALT Alkaline Phosphatase Lactate Dehydrogenase Troponin T C-Reactive Protein Total Protein Albumin Prealbumin Triglycerides Cholesterol LDL Cholesterol Direct HDL Cholesterol Urine pH Urine WBC (Auto) Urine Creatinine Urine Total Protein Fluid Total Protein Vancomycin Trough Rheumatoid Factor Complement C4 Miscellaneous Test Crossmatch 11/21/16 11/21/16 11/21/16 08:38 10:09 11:20 WBC RBC Hgb Hct MCV MCH MCHC RDW Plt Count Lymph % (Auto) [place] % (Auto) Lymph # [place] # Baso # Seg Neutrophils % Seg Neuts % (Manual) Lymphocytes % (Manual) Monocytes % (Manual) Eosinophils % (Manual) Basophils % (Manual) Nucleated RBC % Seg Neutrophils # Seg Neutrophils # Man Lymphocytes # (Manual) Monocytes # (Manual) Eosinophils # (Manual) Basophils # (Manual) PT INR Fibrinogen dRVVT Confirm Interp Factor V Activity POC ABG pH 7.346 L POC ABG pCO2 34.4 L POC ABG pO2 314 H ABG pO2 ABG HCO3 ABG Base Excess ABG Hemoglobin Oxyhemoglobin Sodium Potassium Chloride Carbon Dioxide BUN Creatinine Glucose POC Glucose 195 H 153 H Lactic Acid Calcium Phosphorus Magnesium Direct Bilirubin AST ALT Alkaline Phosphatase Lactate Dehydrogenase Troponin T C-Reactive Protein Total Protein Albumin Prealbumin Triglycerides Cholesterol LDL Cholesterol Direct HDL Cholesterol Urine pH Urine WBC (Auto) Urine Creatinine Urine Total Protein Fluid Total Protein Vancomycin Trough Rheumatoid Factor Complement C4 Miscellaneous Test Crossmatch 11/21/16 11/22/16 11/22/16 23:37 04:48 05:00 WBC 29.7 H RBC 2.73 L Hgb 7.5 L Hct 24.2 L MCV MCH 27 L MCHC RDW 17.4 H Plt Count Lymph % (Auto) [place] % (Auto) Lymph # [place] # Baso # Seg Neutrophils % Seg Neuts % (Manual) Lymphocytes % (Manual) 7.0 L Monocytes % (Manual) Eosinophils % (Manual) Basophils % (Manual) Nucleated RBC % Seg Neutrophils # Seg Neutrophils # Man 15.4 H Lymphocytes # (Manual) Monocytes # (Manual) Eosinophils # (Manual) Basophils # (Manual) PT INR Fibrinogen dRVVT Confirm Interp Factor V Activity POC ABG pH POC ABG pCO2 24.6 L POC ABG pO2 189 H ABG pO2 ABG HCO3 ABG Base Excess ABG Hemoglobin Oxyhemoglobin Sodium Potassium Chloride Carbon Dioxide BUN Creatinine Glucose POC Glucose 65 L Lactic Acid Calcium Phosphorus Magnesium Direct Bilirubin AST ALT Alkaline Phosphatase Lactate Dehydrogenase Troponin T C-Reactive Protein Total Protein Albumin Prealbumin Triglycerides Cholesterol LDL Cholesterol Direct HDL Cholesterol Urine pH Urine WBC (Auto) Urine Creatinine Urine Total Protein Fluid Total Protein Vancomycin Trough Rheumatoid Factor Complement C4 Miscellaneous Test Crossmatch 11/22/16 11/23/16 11/23/16 05:00 03:44 04:06 WBC RBC 2.52 L Hgb 7.2 L Hct 21.5 L MCV MCH MCHC RDW 17.1 H Plt Count Lymph % (Auto) [place] % (Auto) 12.4 H Lymph # [place] # 1.4 H Baso # Seg Neutrophils % Seg Neuts % (Manual) Lymphocytes % (Manual) Monocytes % (Manual) Eosinophils % (Manual) Basophils % (Manual) Nucleated RBC % Seg Neutrophils # Seg Neutrophils # Man Lymphocytes # (Manual) Monocytes # (Manual) Eosinophils # (Manual) Basophils # (Manual) PT INR Fibrinogen dRVVT Confirm Interp Factor V Activity POC ABG pH 7.493 H POC ABG pCO2 29.5 L POC ABG pO2 49 L ABG pO2 ABG HCO3 ABG Base Excess ABG Hemoglobin Oxyhemoglobin Sodium 134 L Potassium Chloride 95.9 L Carbon Dioxide 14 L D BUN 51 H Creatinine 2.6 H Glucose POC Glucose Lactic Acid Calcium Phosphorus Magnesium Direct Bilirubin AST ALT Alkaline Phosphatase Lactate Dehydrogenase Troponin T C-Reactive Protein Total Protein Albumin Prealbumin Triglycerides Cholesterol LDL Cholesterol Direct HDL Cholesterol Urine pH Urine WBC (Auto) Urine Creatinine Urine Total Protein Fluid Total Protein Vancomycin Trough Rheumatoid Factor Complement C4 Miscellaneous Test Crossmatch 11/23/16 11/23/16 11/24/16 04:06 11:29 06:39 WBC RBC Hgb Hct MCV MCH MCHC RDW Plt Count Lymph % (Auto) [place] % (Auto) Lymph # [place] # Baso # Seg Neutrophils % Seg Neuts % (Manual) Lymphocytes % (Manual) Monocytes % (Manual) Eosinophils % (Manual) Basophils % (Manual) Nucleated RBC % Seg Neutrophils # Seg Neutrophils # Man Lymphocytes # (Manual) Monocytes # (Manual) Eosinophils # (Manual) Basophils # (Manual) PT INR Fibrinogen dRVVT Confirm Interp Factor V Activity POC ABG pH POC ABG pCO2 POC ABG pO2 ABG pO2 ABG HCO3 ABG Base Excess ABG Hemoglobin Oxyhemoglobin Sodium 136 L Potassium Chloride 95.2 L Carbon Dioxide BUN 60 H Creatinine 2.9 H Glucose POC Glucose 69 L 305 H Lactic Acid Calcium Phosphorus Magnesium 1.60 L Direct Bilirubin AST ALT Alkaline Phosphatase Lactate Dehydrogenase Troponin T C-Reactive Protein Total Protein Albumin Prealbumin Triglycerides Cholesterol LDL Cholesterol Direct HDL Cholesterol Urine pH Urine WBC (Auto) Urine Creatinine Urine Total Protein Fluid Total Protein Vancomycin Trough Rheumatoid Factor Complement C4 Miscellaneous Test Crossmatch 11/24/16 11/24/16 11/24/16 06:43 08:08 08:08 WBC 11.2 H RBC 2.47 L Hgb 6.8 L Hct 20.6 L MCV MCH MCHC RDW 17.0 H Plt Count Lymph % (Auto) [place] % (Auto) 10.3 H Lymph # [place] # 1.2 H Baso # Seg Neutrophils % Seg Neuts % (Manual) Lymphocytes % (Manual) Monocytes % (Manual) Eosinophils % (Manual) Basophils % (Manual) Nucleated RBC % Seg Neutrophils # Seg Neutrophils # Man Lymphocytes # (Manual) Monocytes # (Manual) Eosinophils # (Manual) Basophils # (Manual) PT INR Fibrinogen dRVVT Confirm Interp Factor V Activity POC ABG pH POC ABG pCO2 POC ABG pO2 ABG pO2 ABG HCO3 ABG Base Excess ABG Hemoglobin Oxyhemoglobin Sodium 135 L Potassium Chloride 96.3 L Carbon Dioxide BUN 61 H Creatinine 3.1 H Glucose POC Glucose 62 L Lactic Acid Calcium 8.2 L Phosphorus Magnesium Direct Bilirubin AST ALT Alkaline Phosphatase Lactate Dehydrogenase Troponin T C-Reactive Protein Total Protein Albumin Prealbumin Triglycerides Cholesterol LDL Cholesterol Direct HDL Cholesterol Urine pH Urine WBC (Auto) Urine Creatinine Urine Total Protein Fluid Total Protein Vancomycin Trough Rheumatoid Factor Complement C4 Miscellaneous Test Crossmatch 11/24/16 11/24/16 11/24/16 08:34 11:20 12:41 WBC RBC Hgb Hct MCV MCH MCHC RDW Plt Count Lymph % (Auto) [place] % (Auto) Lymph # [place] # Baso # Seg Neutrophils % Seg Neuts % (Manual) Lymphocytes % (Manual) Monocytes % (Manual) Eosinophils % (Manual) Basophils % (Manual) Nucleated RBC % Seg Neutrophils # Seg Neutrophils # Man Lymphocytes # (Manual) Monocytes # (Manual) Eosinophils # (Manual) Basophils # (Manual) PT INR Fibrinogen dRVVT Confirm Interp Factor V Activity POC ABG pH POC ABG pCO2 POC ABG pO2 ABG pO2 ABG HCO3 ABG Base Excess ABG Hemoglobin Oxyhemoglobin Sodium Potassium Chloride Carbon Dioxide BUN Creatinine Glucose POC Glucose 108 H Lactic Acid Calcium Phosphorus Magnesium 1.60 L Direct Bilirubin AST ALT Alkaline Phosphatase Lactate Dehydrogenase Troponin T C-Reactive Protein Total Protein Albumin Prealbumin Triglycerides Cholesterol LDL Cholesterol Direct HDL Cholesterol Urine pH Urine WBC (Auto) Urine Creatinine Urine Total Protein Fluid Total Protein Vancomycin Trough Rheumatoid Factor Complement C4 Miscellaneous Test Crossmatch See Detail 11/25/16 11/25/16 11/25/16 00:03 04:42 04:42 WBC RBC 3.03 L Hgb 8.6 L Hct 25.3 L MCV MCH MCHC RDW 16.2 H Plt Count Lymph % (Auto) [place] % (Auto) 8.1 H Lymph # [place] # Baso # Seg Neutrophils % 71.3 H Seg Neuts % (Manual) Lymphocytes % (Manual) Monocytes % (Manual) Eosinophils % (Manual) Basophils % (Manual) Nucleated RBC % Seg Neutrophils # Seg Neutrophils # Man Lymphocytes # (Manual) Monocytes # (Manual) Eosinophils # (Manual) Basophils # (Manual) PT INR Fibrinogen dRVVT Confirm Interp Factor V Activity POC ABG pH POC ABG pCO2 POC ABG pO2 ABG pO2 ABG HCO3 ABG Base Excess ABG Hemoglobin Oxyhemoglobin Sodium Potassium Chloride Carbon Dioxide BUN 61 H Creatinine 3.0 H Glucose 102 H POC Glucose 113 H Lactic Acid Calcium 8.2 L Phosphorus Magnesium Direct Bilirubin AST ALT Alkaline Phosphatase 142 H Lactate Dehydrogenase Troponin T C-Reactive Protein Total Protein 5.7 L Albumin 1.5 L Prealbumin Triglycerides Cholesterol LDL Cholesterol Direct HDL Cholesterol Urine pH Urine WBC (Auto) Urine Creatinine Urine Total Protein Fluid Total Protein Vancomycin Trough Rheumatoid Factor Complement C4 Miscellaneous Test Crossmatch 11/25/16 11/25/16 11/25/16 05:12 11:31 14:12 WBC RBC Hgb Hct MCV MCH MCHC RDW Plt Count Lymph % (Auto) [place] % (Auto) Lymph # [place] # Baso # Seg Neutrophils % Seg Neuts % (Manual) Lymphocytes % (Manual) Monocytes % (Manual) Eosinophils % (Manual) Basophils % (Manual) Nucleated RBC % Seg Neutrophils # Seg Neutrophils # Man Lymphocytes # (Manual) Monocytes # (Manual) Eosinophils # (Manual) Basophils # (Manual) PT INR Fibrinogen dRVVT Confirm Interp Factor V Activity POC ABG pH 7.487 H POC ABG pCO2 POC ABG pO2 153 H ABG pO2 ABG HCO3 ABG Base Excess ABG Hemoglobin Oxyhemoglobin Sodium Potassium Chloride Carbon Dioxide BUN Creatinine Glucose POC Glucose 131 H 140 H Lactic Acid Calcium Phosphorus Magnesium Direct Bilirubin AST ALT Alkaline Phosphatase Lactate Dehydrogenase Troponin T C-Reactive Protein Total Protein Albumin Prealbumin Triglycerides Cholesterol LDL Cholesterol Direct HDL Cholesterol Urine pH Urine WBC (Auto) Urine Creatinine Urine Total Protein Fluid Total Protein Vancomycin Trough Rheumatoid Factor Complement C4 Miscellaneous Test Crossmatch 11/25/16 11/26/16 11/26/16 17:23 00:09 05:13 WBC RBC 2.94 L Hgb 8.4 L Hct 24.6 L MCV MCH MCHC RDW 16.4 H Plt Count Lymph % (Auto) [place] % (Auto) 12.3 H Lymph # [place] # 1.1 H Baso # Seg Neutrophils % Seg Neuts % (Manual) Lymphocytes % (Manual) Monocytes % (Manual) Eosinophils % (Manual) Basophils % (Manual) Nucleated RBC % Seg Neutrophils # Seg Neutrophils # Man Lymphocytes # (Manual) Monocytes # (Manual) Eosinophils # (Manual) Basophils # (Manual) PT INR Fibrinogen dRVVT Confirm Interp Factor V Activity POC ABG pH POC ABG pCO2 POC ABG pO2 ABG pO2 ABG HCO3 ABG Base Excess ABG Hemoglobin Oxyhemoglobin Sodium Potassium Chloride Carbon Dioxide BUN Creatinine Glucose POC Glucose 146 H 112 H Lactic Acid Calcium Phosphorus Magnesium Direct Bilirubin AST ALT Alkaline Phosphatase Lactate Dehydrogenase Troponin T C-Reactive Protein Total Protein Albumin Prealbumin Triglycerides Cholesterol LDL Cholesterol Direct HDL Cholesterol Urine pH Urine WBC (Auto) Urine Creatinine Urine Total Protein Fluid Total Protein Vancomycin Trough Rheumatoid Factor Complement C4 Miscellaneous Test Crossmatch 11/26/16 11/26/16 11/26/16 05:13 05:28 11:53 WBC RBC Hgb Hct MCV MCH MCHC RDW Plt Count Lymph % (Auto) [place] % (Auto) Lymph # [place] # Baso # Seg Neutrophils % Seg Neuts % (Manual) Lymphocytes % (Manual) Monocytes % (Manual) Eosinophils % (Manual) Basophils % (Manual) Nucleated RBC % Seg Neutrophils # Seg Neutrophils # Man Lymphocytes # (Manual) Monocytes # (Manual) Eosinophils # (Manual) Basophils # (Manual) PT INR Fibrinogen dRVVT Confirm Interp Factor V Activity POC ABG pH POC ABG pCO2 POC ABG pO2 ABG pO2 ABG HCO3 ABG Base Excess ABG Hemoglobin Oxyhemoglobin Sodium Potassium Chloride 97.8 L Carbon Dioxide BUN 37 H Creatinine 2.0 H Glucose 109 H POC Glucose 117 H 111 H Lactic Acid Calcium 7.9 L Phosphorus 1.80 L D Magnesium Direct Bilirubin AST ALT Alkaline Phosphatase Lactate Dehydrogenase Troponin T C-Reactive Protein Total Protein Albumin Prealbumin Triglycerides Cholesterol LDL Cholesterol Direct HDL Cholesterol Urine pH Urine WBC (Auto) Urine Creatinine Urine Total Protein Fluid Total Protein Vancomycin Trough Rheumatoid Factor Complement C4 Miscellaneous Test Crossmatch 11/26/16 11/27/16 11/27/16 17:14 04:50 06:02 WBC RBC Hgb Hct MCV MCH MCHC RDW Plt Count Lymph % (Auto) [place] % (Auto) Lymph # [place] # Baso # Seg Neutrophils % Seg Neuts % (Manual) Lymphocytes % (Manual) Monocytes % (Manual) Eosinophils % (Manual) Basophils % (Manual) Nucleated RBC % Seg Neutrophils # Seg Neutrophils # Man Lymphocytes # (Manual) Monocytes # (Manual) Eosinophils # (Manual) Basophils # (Manual) PT INR Fibrinogen dRVVT Confirm Interp Factor V Activity POC ABG pH POC ABG pCO2 POC ABG pO2 ABG pO2 75.2 L ABG HCO3 26.4 H ABG Base Excess ABG Hemoglobin 7.6 L Oxyhemoglobin 94.8 L Sodium Potassium Chloride Carbon Dioxide BUN 49 H Creatinine 2.3 H Glucose POC Glucose 115 H Lactic Acid Calcium Phosphorus 1.50 L Magnesium Direct Bilirubin AST ALT Alkaline Phosphatase Lactate Dehydrogenase Troponin T C-Reactive Protein Total Protein Albumin Prealbumin Triglycerides Cholesterol LDL Cholesterol Direct HDL Cholesterol Urine pH Urine WBC (Auto) Urine Creatinine Urine Total Protein Fluid Total Protein Vancomycin Trough Rheumatoid Factor Complement C4 Miscellaneous Test Crossmatch 11/27/16 11/27/16 11/27/16 06:02 11:25 17:25 WBC 11.6 H RBC 2.75 L Hgb 7.6 L Hct 23.4 L MCV MCH MCHC RDW 16.5 H Plt Count Lymph % (Auto) [place] % (Auto) Lymph # [place] # Baso # Seg Neutrophils % Seg Neuts % (Manual) Lymphocytes % (Manual) Monocytes % (Manual) Eosinophils % (Manual) Basophils % (Manual) Nucleated RBC % Seg Neutrophils # Seg Neutrophils # Man Lymphocytes # (Manual) Monocytes # (Manual) Eosinophils # (Manual) Basophils # (Manual) PT INR Fibrinogen dRVVT Confirm Interp Factor V Activity POC ABG pH POC ABG pCO2 POC ABG pO2 ABG pO2 ABG HCO3 ABG Base Excess ABG Hemoglobin Oxyhemoglobin Sodium Potassium Chloride Carbon Dioxide BUN Creatinine Glucose POC Glucose 114 H 126 H Lactic Acid Calcium Phosphorus Magnesium Direct Bilirubin AST ALT Alkaline Phosphatase Lactate Dehydrogenase Troponin T C-Reactive Protein Total Protein Albumin Prealbumin Triglycerides Cholesterol LDL Cholesterol Direct HDL Cholesterol Urine pH Urine WBC (Auto) Urine Creatinine Urine Total Protein Fluid Total Protein Vancomycin Trough Rheumatoid Factor Complement C4 Miscellaneous Test Crossmatch 11/28/16 11/28/16 11/28/16 04:45 05:33 05:44 WBC RBC Hgb Hct MCV MCH MCHC RDW Plt Count Lymph % (Auto) [place] % (Auto) Lymph # [place] # Baso # Seg Neutrophils % Seg Neuts % (Manual) Lymphocytes % (Manual) Monocytes % (Manual) Eosinophils % (Manual) Basophils % (Manual) Nucleated RBC % Seg Neutrophils # Seg Neutrophils # Man Lymphocytes # (Manual) Monocytes # (Manual) Eosinophils # (Manual) Basophils # (Manual) PT INR Fibrinogen dRVVT Confirm Interp Factor V Activity POC ABG pH POC ABG pCO2 POC ABG pO2 ABG pO2 99.3 H ABG HCO3 ABG Base Excess ABG Hemoglobin 8.3 L Oxyhemoglobin Sodium Potassium Chloride Carbon Dioxide BUN 63 H Creatinine 2.4 H Glucose 102 H POC Glucose 108 H Lactic Acid Calcium Phosphorus 1.80 L Magnesium Direct Bilirubin AST ALT Alkaline Phosphatase Lactate Dehydrogenase Troponin T C-Reactive Protein Total Protein Albumin Prealbumin Triglycerides Cholesterol LDL Cholesterol Direct HDL Cholesterol Urine pH Urine WBC (Auto) Urine Creatinine Urine Total Protein Fluid Total Protein Vancomycin Trough Rheumatoid Factor Complement C4 Miscellaneous Test Crossmatch 11/28/16 11/28/16 11/28/16 12:31 16:09 23:46 WBC RBC Hgb Hct MCV MCH MCHC RDW Plt Count Lymph % (Auto) [place] % (Auto) Lymph # [place] # Baso # Seg Neutrophils % Seg Neuts % (Manual) Lymphocytes % (Manual) Monocytes % (Manual) Eosinophils % (Manual) Basophils % (Manual) Nucleated RBC % Seg Neutrophils # Seg Neutrophils # Man Lymphocytes # (Manual) Monocytes # (Manual) Eosinophils # (Manual) Basophils # (Manual) PT INR Fibrinogen dRVVT Confirm Interp Factor V Activity POC ABG pH POC ABG pCO2 POC ABG pO2 ABG pO2 ABG HCO3 ABG Base Excess ABG Hemoglobin Oxyhemoglobin Sodium Potassium Chloride Carbon Dioxide BUN Creatinine Glucose POC Glucose 126 H 111 H 119 H Lactic Acid Calcium Phosphorus Magnesium Direct Bilirubin AST ALT Alkaline Phosphatase Lactate Dehydrogenase Troponin T C-Reactive Protein Total Protein Albumin Prealbumin Triglycerides Cholesterol LDL Cholesterol Direct HDL Cholesterol Urine pH Urine WBC (Auto) Urine Creatinine Urine Total Protein Fluid Total Protein Vancomycin Trough Rheumatoid Factor Complement C4 Miscellaneous Test Crossmatch 11/29/16 11/29/16 11/29/16 03:33 04:52 05:10 WBC RBC Hgb Hct MCV MCH MCHC RDW Plt Count Lymph % (Auto) [place] % (Auto) Lymph # [place] # Baso # Seg Neutrophils % Seg Neuts % (Manual) Lymphocytes % (Manual) Monocytes % (Manual) Eosinophils % (Manual) Basophils % (Manual) Nucleated RBC % Seg Neutrophils # Seg Neutrophils # Man Lymphocytes # (Manual) Monocytes # (Manual) Eosinophils # (Manual) Basophils # (Manual) PT INR Fibrinogen dRVVT Confirm Interp Factor V Activity POC ABG pH POC ABG pCO2 POC ABG pO2 ABG pO2 ABG HCO3 ABG Base Excess ABG Hemoglobin 7.0 L Oxyhemoglobin 94.9 L Sodium Potassium Chloride Carbon Dioxide BUN 73 H Creatinine 2.7 H Glucose POC Glucose 108 H Lactic Acid Calcium Phosphorus Magnesium Direct Bilirubin AST ALT Alkaline Phosphatase Lactate Dehydrogenase Troponin T C-Reactive Protein Total Protein Albumin Prealbumin Triglycerides Cholesterol LDL Cholesterol Direct HDL Cholesterol Urine pH Urine WBC (Auto) Urine Creatinine Urine Total Protein Fluid Total Protein Vancomycin Trough Rheumatoid Factor Complement C4 Miscellaneous Test Crossmatch 11/29/16 11/29/16 11/29/16 12:16 18:05 23:46 WBC RBC Hgb Hct MCV MCH MCHC RDW Plt Count Lymph % (Auto) [place] % (Auto) Lymph # [place] # Baso # Seg Neutrophils % Seg Neuts % (Manual) Lymphocytes % (Manual) Monocytes % (Manual) Eosinophils % (Manual) Basophils % (Manual) Nucleated RBC % Seg Neutrophils # Seg Neutrophils # Man Lymphocytes # (Manual) Monocytes # (Manual) Eosinophils # (Manual) Basophils # (Manual) PT INR Fibrinogen dRVVT Confirm Interp Factor V Activity POC ABG pH POC ABG pCO2 POC ABG pO2 ABG pO2 ABG HCO3 ABG Base Excess ABG Hemoglobin Oxyhemoglobin Sodium Potassium Chloride Carbon Dioxide BUN Creatinine Glucose POC Glucose 133 H 146 H 141 H Lactic Acid Calcium Phosphorus Magnesium Direct Bilirubin AST ALT Alkaline Phosphatase Lactate Dehydrogenase Troponin T C-Reactive Protein Total Protein Albumin Prealbumin Triglycerides Cholesterol LDL Cholesterol Direct HDL Cholesterol Urine pH Urine WBC (Auto) Urine Creatinine Urine Total Protein Fluid Total Protein Vancomycin Trough Rheumatoid Factor Complement C4 Miscellaneous Test Crossmatch 11/30/16 11/30/16 11/30/16 04:17 04:17 04:32 WBC 12.0 H RBC 2.80 L Hgb 7.8 L Hct 23.6 L MCV MCH MCHC RDW 16.6 H Plt Count Lymph % (Auto) [place] % (Auto) 11.3 H Lymph # [place] # 1.4 H Baso # Seg Neutrophils % Seg Neuts % (Manual) Lymphocytes % (Manual) Monocytes % (Manual) Eosinophils % (Manual) Basophils % (Manual) Nucleated RBC % Seg Neutrophils # 8.2 H Seg Neutrophils # Man Lymphocytes # (Manual) Monocytes # (Manual) Eosinophils # (Manual) Basophils # (Manual) PT INR Fibrinogen dRVVT Confirm Interp Factor V Activity POC ABG pH POC ABG pCO2 POC ABG pO2 ABG pO2 ABG HCO3 ABG Base Excess ABG Hemoglobin Oxyhemoglobin Sodium 169 H* D Potassium 5.1 H Chloride 121.5 H Carbon Dioxide BUN 34 H Creatinine 1.3 H D Glucose 133 H POC Glucose 131 H Lactic Acid Calcium 10.3 H Phosphorus Magnesium Direct Bilirubin AST ALT Alkaline Phosphatase Lactate Dehydrogenase Troponin T C-Reactive Protein Total Protein Albumin Prealbumin Triglycerides Cholesterol LDL Cholesterol Direct HDL Cholesterol Urine pH Urine WBC (Auto) Urine Creatinine Urine Total Protein Fluid Total Protein Vancomycin Trough Rheumatoid Factor Complement C4 Miscellaneous Test Crossmatch 11/30/16 11/30/16 11/30/16 05:45 11:10 17:26 WBC RBC Hgb Hct MCV MCH MCHC RDW Plt Count Lymph % (Auto) [place] % (Auto) Lymph # [place] # Baso # Seg Neutrophils % Seg Neuts % (Manual) Lymphocytes % (Manual) Monocytes % (Manual) Eosinophils % (Manual) Basophils % (Manual) Nucleated RBC % Seg Neutrophils # Seg Neutrophils # Man Lymphocytes # (Manual) Monocytes # (Manual) Eosinophils # (Manual) Basophils # (Manual) PT INR Fibrinogen dRVVT Confirm Interp Factor V Activity POC ABG pH POC ABG pCO2 POC ABG pO2 ABG pO2 ABG HCO3 ABG Base Excess ABG Hemoglobin Oxyhemoglobin Sodium Potassium Chloride Carbon Dioxide BUN 45 H Creatinine 1.6 H Glucose 131 H POC Glucose 146 H 134 H Lactic Acid Calcium Phosphorus Magnesium Direct Bilirubin AST ALT Alkaline Phosphatase Lactate Dehydrogenase Troponin T C-Reactive Protein Total Protein Albumin Prealbumin Triglycerides Cholesterol LDL Cholesterol Direct HDL Cholesterol Urine pH Urine WBC (Auto) Urine Creatinine Urine Total Protein Fluid Total Protein Vancomycin Trough Rheumatoid Factor Complement C4 Miscellaneous Test Crossmatch 11/30/16 12/01/16 12/01/16 23:35 00:06 03:35 WBC RBC Hgb Hct MCV MCH MCHC RDW Plt Count Lymph % (Auto) [place] % (Auto) Lymph # [place] # Baso # Seg Neutrophils % Seg Neuts % (Manual) Lymphocytes % (Manual) Monocytes % (Manual) Eosinophils % (Manual) Basophils % (Manual) Nucleated RBC % Seg Neutrophils # Seg Neutrophils # Man Lymphocytes # (Manual) Monocytes # (Manual) Eosinophils # (Manual) Basophils # (Manual) PT INR Fibrinogen dRVVT Confirm Interp Factor V Activity POC ABG pH POC ABG pCO2 POC ABG pO2 ABG pO2 ABG HCO3 ABG Base Excess ABG Hemoglobin 6.9 L Oxyhemoglobin Sodium Potassium Chloride Carbon Dioxide BUN 58 H Creatinine 1.8 H Glucose 146 H POC Glucose 151 H Lactic Acid Calcium Phosphorus Magnesium Direct Bilirubin AST ALT Alkaline Phosphatase Lactate Dehydrogenase Troponin T C-Reactive Protein Total Protein Albumin Prealbumin Triglycerides Cholesterol LDL Cholesterol Direct HDL Cholesterol Urine pH Urine WBC (Auto) Urine Creatinine Urine Total Protein Fluid Total Protein Vancomycin Trough Rheumatoid Factor Complement C4 Miscellaneous Test Crossmatch 12/01/16 12/01/16 12/01/16 03:35 05:47 11:52 WBC 12.3 H RBC 2.82 L Hgb 7.8 L Hct 23.7 L MCV MCH MCHC RDW 16.7 H Plt Count Lymph % (Auto) [place] % (Auto) 9.8 H Lymph # [place] # 1.2 H Baso # Seg Neutrophils % Seg Neuts % (Manual) Lymphocytes % (Manual) Monocytes % (Manual) Eosinophils % (Manual) Basophils % (Manual) Nucleated RBC % Seg Neutrophils # 8.4 H Seg Neutrophils # Man Lymphocytes # (Manual) Monocytes # (Manual) Eosinophils # (Manual) Basophils # (Manual) PT INR Fibrinogen dRVVT Confirm Interp Factor V Activity POC ABG pH POC ABG pCO2 POC ABG pO2 ABG pO2 ABG HCO3 ABG Base Excess ABG Hemoglobin Oxyhemoglobin Sodium Potassium Chloride Carbon Dioxide BUN Creatinine Glucose POC Glucose 152 H 152 H Lactic Acid Calcium Phosphorus Magnesium Direct Bilirubin AST ALT Alkaline Phosphatase Lactate Dehydrogenase Troponin T C-Reactive Protein Total Protein Albumin Prealbumin Triglycerides Cholesterol LDL Cholesterol Direct HDL Cholesterol Urine pH Urine WBC (Auto) Urine Creatinine Urine Total Protein Fluid Total Protein Vancomycin Trough Rheumatoid Factor Complement C4 Miscellaneous Test Crossmatch 12/01/16 12/01/16 12/02/16 17:40 23:41 05:00 WBC RBC Hgb Hct MCV MCH MCHC RDW Plt Count Lymph % (Auto) [place] % (Auto) Lymph # [place] # Baso # Seg Neutrophils % Seg Neuts % (Manual) Lymphocytes % (Manual) Monocytes % (Manual) Eosinophils % (Manual) Basophils % (Manual) Nucleated RBC % Seg Neutrophils # Seg Neutrophils # Man Lymphocytes # (Manual) Monocytes # (Manual) Eosinophils # (Manual) Basophils # (Manual) PT INR Fibrinogen dRVVT Confirm Interp Factor V Activity POC ABG pH POC ABG pCO2 POC ABG pO2 ABG pO2 ABG HCO3 ABG Base Excess ABG Hemoglobin Oxyhemoglobin Sodium Potassium Chloride Carbon Dioxide BUN 45 H Creatinine Glucose 115 H POC Glucose 140 H 144 H Lactic Acid Calcium Phosphorus Magnesium Direct Bilirubin AST ALT Alkaline Phosphatase Lactate Dehydrogenase Troponin T C-Reactive Protein Total Protein Albumin Prealbumin Triglycerides Cholesterol LDL Cholesterol Direct HDL Cholesterol Urine pH Urine WBC (Auto) Urine Creatinine Urine Total Protein Fluid Total Protein Vancomycin Trough Rheumatoid Factor Complement C4 Miscellaneous Test Crossmatch 12/02/16 12/02/16 12/02/16 05:31 11:20 17:38 WBC RBC Hgb Hct MCV MCH MCHC RDW Plt Count Lymph % (Auto) [place] % (Auto) Lymph # [place] # Baso # Seg Neutrophils % Seg Neuts % (Manual) Lymphocytes % (Manual) Monocytes % (Manual) Eosinophils % (Manual) Basophils % (Manual) Nucleated RBC % Seg Neutrophils # Seg Neutrophils # Man Lymphocytes # (Manual) Monocytes # (Manual) Eosinophils # (Manual) Basophils # (Manual) PT INR Fibrinogen dRVVT Confirm Interp Factor V Activity POC ABG pH POC ABG pCO2 POC ABG pO2 ABG pO2 ABG HCO3 ABG Base Excess ABG Hemoglobin Oxyhemoglobin Sodium Potassium Chloride Carbon Dioxide BUN Creatinine Glucose POC Glucose 136 H 177 H 139 H Lactic Acid Calcium Phosphorus Magnesium Direct Bilirubin AST ALT Alkaline Phosphatase Lactate Dehydrogenase Troponin T C-Reactive Protein Total Protein Albumin Prealbumin Triglycerides Cholesterol LDL Cholesterol Direct HDL Cholesterol Urine pH Urine WBC (Auto) Urine Creatinine Urine Total Protein Fluid Total Protein Vancomycin Trough Rheumatoid Factor Complement C4 Miscellaneous Test Crossmatch 10/12/03/16 12/03/16 23:43 04:00 04:00 WBC 20.4 H RBC 2.74 L Hgb 7.4 L Hct 23.6 L MCV MCH 27 L MCHC RDW 17.1 H Plt Count Lymph % (Auto) [place] % (Auto) Lymph # [place] # Baso # Seg Neutrophils % Seg Neuts % (Manual) 31.0 L Lymphocytes % (Manual) Monocytes % (Manual) Eosinophils % (Manual) Basophils % (Manual) Nucleated RBC % Seg Neutrophils # Seg Neutrophils # Man Lymphocytes # (Manual) Monocytes # (Manual) Eosinophils # (Manual) Basophils # (Manual) PT INR Fibrinogen dRVVT Confirm Interp Factor V Activity POC ABG pH POC ABG pCO2 POC ABG pO2 ABG pO2 ABG HCO3 ABG Base Excess ABG Hemoglobin Oxyhemoglobin Sodium Potassium Chloride Carbon Dioxide BUN 61 H Creatinine 1.6 H Glucose 119 H POC Glucose 158 H Lactic Acid Calcium Phosphorus Magnesium Direct Bilirubin AST ALT Alkaline Phosphatase Lactate Dehydrogenase Troponin T C-Reactive Protein Total Protein Albumin Prealbumin Triglycerides Cholesterol LDL Cholesterol Direct HDL Cholesterol Urine pH Urine WBC (Auto) Urine Creatinine Urine Total Protein Fluid Total Protein Vancomycin Trough Rheumatoid Factor Complement C4 Miscellaneous Test Crossmatch 12/03/16 12/03/16 12/03/16 05:02 12:11 18:16 WBC RBC Hgb Hct MCV MCH MCHC RDW Plt Count Lymph % (Auto) [place] % (Auto) Lymph # [place] # Baso # Seg Neutrophils % Seg Neuts % (Manual) Lymphocytes % (Manual) Monocytes % (Manual) Eosinophils % (Manual) Basophils % (Manual) Nucleated RBC % Seg Neutrophils # Seg Neutrophils # Man Lymphocytes # (Manual) Monocytes # (Manual) Eosinophils # (Manual) Basophils # (Manual) PT INR Fibrinogen dRVVT Confirm Interp Factor V Activity POC ABG pH POC ABG pCO2 POC ABG pO2 ABG pO2 ABG HCO3 ABG Base Excess ABG Hemoglobin Oxyhemoglobin Sodium Potassium Chloride Carbon Dioxide BUN Creatinine Glucose POC Glucose 146 H 157 H 124 H Lactic Acid Calcium Phosphorus Magnesium Direct Bilirubin AST ALT Alkaline Phosphatase Lactate Dehydrogenase Troponin T C-Reactive Protein Total Protein Albumin Prealbumin Triglycerides Cholesterol LDL Cholesterol Direct HDL Cholesterol Urine pH Urine WBC (Auto) Urine Creatinine Urine Total Protein Fluid Total Protein Vancomycin Trough Rheumatoid Factor Complement C4 Miscellaneous Test Crossmatch 12/03/16 12/04/16 12/04/16 23:41 04:00 04:45 WBC RBC Hgb Hct MCV MCH MCHC RDW Plt Count Lymph % (Auto) [place] % (Auto) Lymph # [place] # Baso # Seg Neutrophils % Seg Neuts % (Manual) Lymphocytes % (Manual) Monocytes % (Manual) Eosinophils % (Manual) Basophils % (Manual) Nucleated RBC % Seg Neutrophils # Seg Neutrophils # Man Lymphocytes # (Manual) Monocytes # (Manual) Eosinophils # (Manual) Basophils # (Manual) PT INR Fibrinogen dRVVT Confirm Interp Factor V Activity POC ABG pH POC ABG pCO2 POC ABG pO2 ABG pO2 ABG HCO3 ABG Base Excess ABG Hemoglobin Oxyhemoglobin Sodium Potassium Chloride Carbon Dioxide BUN 76 H Creatinine 1.6 H Glucose POC Glucose 130 H 136 H Lactic Acid Calcium Phosphorus Magnesium Direct Bilirubin AST ALT Alkaline Phosphatase 155 H Lactate Dehydrogenase Troponin T C-Reactive Protein Total Protein 5.5 L Albumin 1.5 L Prealbumin Triglycerides Cholesterol LDL Cholesterol Direct HDL Cholesterol Urine pH Urine WBC (Auto) Urine Creatinine Urine Total Protein Fluid Total Protein Vancomycin Trough Rheumatoid Factor Complement C4 Miscellaneous Test Crossmatch 12/04/16 12/04/16 12/05/16 12:08 17:23 00:10 WBC RBC Hgb Hct MCV MCH MCHC RDW Plt Count Lymph % (Auto) [place] % (Auto) Lymph # [place] # Baso # Seg Neutrophils % Seg Neuts % (Manual) Lymphocytes % (Manual) Monocytes % (Manual) Eosinophils % (Manual) Basophils % (Manual) Nucleated RBC % Seg Neutrophils # Seg Neutrophils # Man Lymphocytes # (Manual) Monocytes # (Manual) Eosinophils # (Manual) Basophils # (Manual) PT INR Fibrinogen dRVVT Confirm Interp Factor V Activity POC ABG pH POC ABG pCO2 POC ABG pO2 ABG pO2 ABG HCO3 ABG Base Excess ABG Hemoglobin Oxyhemoglobin Sodium Potassium Chloride Carbon Dioxide BUN Creatinine Glucose POC Glucose 114 H 129 H 124 H Lactic Acid Calcium Phosphorus Magnesium Direct Bilirubin AST ALT Alkaline Phosphatase Lactate Dehydrogenase Troponin T C-Reactive Protein Total Protein Albumin Prealbumin Triglycerides Cholesterol LDL Cholesterol Direct HDL Cholesterol Urine pH Urine WBC (Auto) Urine Creatinine Urine Total Protein Fluid Total Protein Vancomycin Trough Rheumatoid Factor Complement C4 Miscellaneous Test Crossmatch 12/05/16 12/05/16 12/05/16 05:00 05:00 05:18 WBC RBC Hgb Hct MCV MCH MCHC RDW Plt Count Lymph % (Auto) [place] % (Auto) Lymph # [place] # Baso # Seg Neutrophils % Seg Neuts % (Manual) Lymphocytes % (Manual) Monocytes % (Manual) Eosinophils % (Manual) Basophils % (Manual) Nucleated RBC % Seg Neutrophils # Seg Neutrophils # Man Lymphocytes # (Manual) Monocytes # (Manual) Eosinophils # (Manual) Basophils # (Manual) PT INR Fibrinogen dRVVT Confirm Interp Factor V Activity POC ABG pH POC ABG pCO2 POC ABG pO2 ABG pO2 ABG HCO3 ABG Base Excess ABG Hemoglobin Oxyhemoglobin Sodium Potassium Chloride Carbon Dioxide 21 L BUN 85 H Creatinine 1.9 H Glucose 131 H POC Glucose 154 H Lactic Acid Calcium Phosphorus Magnesium Direct Bilirubin AST ALT Alkaline Phosphatase Lactate Dehydrogenase Troponin T C-Reactive Protein 19.30 H Total Protein Albumin Prealbumin Triglycerides Cholesterol LDL Cholesterol Direct HDL Cholesterol Urine pH Urine WBC (Auto) Urine Creatinine Urine Total Protein Fluid Total Protein Vancomycin Trough Rheumatoid Factor Complement C4 Miscellaneous Test Crossmatch 12/05/16 12/05/16 12/05/16 11:43 17:46 23:25 WBC RBC Hgb Hct MCV MCH MCHC RDW Plt Count Lymph % (Auto) [place] % (Auto) Lymph # [place] # Baso # Seg Neutrophils % Seg Neuts % (Manual) Lymphocytes % (Manual) Monocytes % (Manual) Eosinophils % (Manual) Basophils % (Manual) Nucleated RBC % Seg Neutrophils # Seg Neutrophils # Man Lymphocytes # (Manual) Monocytes # (Manual) Eosinophils # (Manual) Basophils # (Manual) PT INR Fibrinogen dRVVT Confirm Interp Factor V Activity POC ABG pH POC ABG pCO2 POC ABG pO2 ABG pO2 ABG HCO3 ABG Base Excess ABG Hemoglobin Oxyhemoglobin Sodium Potassium Chloride Carbon Dioxide BUN Creatinine Glucose POC Glucose 117 H 113 H 111 H Lactic Acid Calcium Phosphorus Magnesium Direct Bilirubin AST ALT Alkaline Phosphatase Lactate Dehydrogenase Troponin T C-Reactive Protein Total Protein Albumin Prealbumin Triglycerides Cholesterol LDL Cholesterol Direct HDL Cholesterol Urine pH Urine WBC (Auto) Urine Creatinine Urine Total Protein Fluid Total Protein Vancomycin Trough Rheumatoid Factor Complement C4 Miscellaneous Test Crossmatch 12/05/16 12/06/16 12/06/16 Unknown 04:58 06:00 WBC RBC Hgb Hct MCV MCH MCHC RDW Plt Count Lymph % (Auto) [place] % (Auto) Lymph # [place] # Baso # Seg Neutrophils % Seg Neuts % (Manual) Lymphocytes % (Manual) Monocytes % (Manual) Eosinophils % (Manual) Basophils % (Manual) Nucleated RBC % Seg Neutrophils # Seg Neutrophils # Man Lymphocytes # (Manual) Monocytes # (Manual) Eosinophils # (Manual) Basophils # (Manual) PT INR Fibrinogen dRVVT Confirm Interp Factor V Activity POC ABG pH POC ABG pCO2 POC ABG pO2 ABG pO2 75.2 L ABG HCO3 ABG Base Excess -3.4 L ABG Hemoglobin 7.4 L Oxyhemoglobin 94.5 L Sodium Potassium Chloride Carbon Dioxide 20 L BUN 99 H Creatinine 2.1 H Glucose 126 H POC Glucose 145 H Lactic Acid Calcium Phosphorus 4.80 H Magnesium Direct Bilirubin AST ALT Alkaline Phosphatase Lactate Dehydrogenase Troponin T C-Reactive Protein Total Protein Albumin Prealbumin Triglycerides Cholesterol LDL Cholesterol Direct HDL Cholesterol Urine pH Urine WBC (Auto) Urine Creatinine Urine Total Protein Fluid Total Protein Vancomycin Trough Rheumatoid Factor Complement C4 Miscellaneous Test Crossmatch 12/06/16 12/06/16 12/06/16 06:46 11:54 17:55 WBC RBC Hgb 8.3 L Hct 26.4 L MCV MCH MCHC RDW Plt Count Lymph % (Auto) [place] % (Auto) Lymph # [place] # Baso # Seg Neutrophils % Seg Neuts % (Manual) Lymphocytes % (Manual) Monocytes % (Manual) Eosinophils % (Manual) Basophils % (Manual) Nucleated RBC % Seg Neutrophils # Seg Neutrophils # Man Lymphocytes # (Manual) Monocytes # (Manual) Eosinophils # (Manual) Basophils # (Manual) PT INR Fibrinogen dRVVT Confirm Interp Factor V Activity POC ABG pH POC ABG pCO2 POC ABG pO2 ABG pO2 ABG HCO3 ABG Base Excess ABG Hemoglobin Oxyhemoglobin Sodium Potassium Chloride Carbon Dioxide BUN Creatinine Glucose POC Glucose 126 H 157 H Lactic Acid Calcium Phosphorus Magnesium Direct Bilirubin AST ALT Alkaline Phosphatase Lactate Dehydrogenase Troponin T C-Reactive Protein Total Protein Albumin Prealbumin Triglycerides Cholesterol LDL Cholesterol Direct HDL Cholesterol Urine pH Urine WBC (Auto) Urine Creatinine Urine Total Protein Fluid Total Protein Vancomycin Trough Rheumatoid Factor Complement C4 Miscellaneous Test Crossmatch 12/06/16 12/07/16 12/07/16 23:59 05:34 06:30 WBC RBC Hgb Hct MCV MCH MCHC RDW Plt Count Lymph % (Auto) [place] % (Auto) Lymph # [place] # Baso # Seg Neutrophils % Seg Neuts % (Manual) Lymphocytes % (Manual) Monocytes % (Manual) Eosinophils % (Manual) Basophils % (Manual) Nucleated RBC % Seg Neutrophils # Seg Neutrophils # Man Lymphocytes # (Manual) Monocytes # (Manual) Eosinophils # (Manual) Basophils # (Manual) PT INR Fibrinogen dRVVT Confirm Interp Factor V Activity POC ABG pH POC ABG pCO2 POC ABG pO2 ABG pO2 ABG HCO3 ABG Base Excess ABG Hemoglobin Oxyhemoglobin Sodium Potassium Chloride Carbon Dioxide BUN 67 H Creatinine 1.4 H Glucose 126 H POC Glucose 129 H 129 H Lactic Acid Calcium Phosphorus Magnesium Direct Bilirubin AST ALT Alkaline Phosphatase Lactate Dehydrogenase Troponin T C-Reactive Protein Total Protein Albumin Prealbumin Triglycerides Cholesterol LDL Cholesterol Direct HDL Cholesterol Urine pH Urine WBC (Auto) Urine Creatinine Urine Total Protein Fluid Total Protein Vancomycin Trough Rheumatoid Factor Complement C4 Miscellaneous Test Crossmatch 12/07/16 12/07/16 12/07/16 06:30 08:00 09:45 WBC 18.8 H RBC 2.52 L Hgb 6.9 L 6.8 L Hct 21.2 L 21.1 L MCV MCH 27 L MCHC RDW 18.0 H Plt Count Lymph % (Auto) [place] % (Auto) 9.9 H Lymph # [place] # 1.9 H Baso # Seg Neutrophils % 71.8 H Seg Neuts % (Manual) Lymphocytes % (Manual) Monocytes % (Manual) Eosinophils % (Manual) Basophils % (Manual) Nucleated RBC % Seg Neutrophils # 13.5 H Seg Neutrophils # Man Lymphocytes # (Manual) Monocytes # (Manual) Eosinophils # (Manual) Basophils # (Manual) PT INR Fibrinogen dRVVT Confirm Interp Factor V Activity POC ABG pH POC ABG pCO2 POC ABG pO2 ABG pO2 ABG HCO3 ABG Base Excess ABG Hemoglobin Oxyhemoglobin Sodium Potassium Chloride Carbon Dioxide BUN Creatinine Glucose POC Glucose Lactic Acid Calcium Phosphorus Magnesium Direct Bilirubin AST ALT Alkaline Phosphatase Lactate Dehydrogenase Troponin T C-Reactive Protein Total Protein Albumin Prealbumin Triglycerides Cholesterol LDL Cholesterol Direct HDL Cholesterol Urine pH Urine WBC (Auto) Urine Creatinine Urine Total Protein Fluid Total Protein Vancomycin Trough Rheumatoid Factor Complement C4 Miscellaneous Test Crossmatch See Detail 12/07/16 12/07/16 12/07/16 11:44 18:19 23:59 WBC RBC Hgb Hct MCV MCH MCHC RDW Plt Count Lymph % (Auto) [place] % (Auto) Lymph # [place] # Baso # Seg Neutrophils % Seg Neuts % (Manual) Lymphocytes % (Manual) Monocytes % (Manual) Eosinophils % (Manual) Basophils % (Manual) Nucleated RBC % Seg Neutrophils # Seg Neutrophils # Man Lymphocytes # (Manual) Monocytes # (Manual) Eosinophils # (Manual) Basophils # (Manual) PT INR Fibrinogen dRVVT Confirm Interp Factor V Activity POC ABG pH POC ABG pCO2 POC ABG pO2 ABG pO2 ABG HCO3 ABG Base Excess ABG Hemoglobin Oxyhemoglobin Sodium Potassium Chloride Carbon Dioxide BUN Creatinine Glucose POC Glucose 137 H 138 H 133 H Lactic Acid Calcium Phosphorus Magnesium Direct Bilirubin AST ALT Alkaline Phosphatase Lactate Dehydrogenase Troponin T C-Reactive Protein Total Protein Albumin Prealbumin Triglycerides Cholesterol LDL Cholesterol Direct HDL Cholesterol Urine pH Urine WBC (Auto) Urine Creatinine Urine Total Protein Fluid Total Protein Vancomycin Trough Rheumatoid Factor Complement C4 Miscellaneous Test Crossmatch 12/08/16 12/08/16 12/08/16 05:25 05:30 05:30 WBC 23.8 H RBC 2.88 L Hgb 8.1 L Hct 24.3 L MCV MCH MCHC RDW 16.7 H Plt Count Lymph % (Auto) [place] % (Auto) Lymph # [place] # Baso # Seg Neutrophils % Seg Neuts % (Manual) 76.0 H Lymphocytes % (Manual) 9.0 L Monocytes % (Manual) 9.0 H Eosinophils % (Manual) Basophils % (Manual) Nucleated RBC % Seg Neutrophils # Seg Neutrophils # Man 18.1 H Lymphocytes # (Manual) Monocytes # (Manual) 2.1 H Eosinophils # (Manual) Basophils # (Manual) PT INR Fibrinogen dRVVT Confirm Interp Factor V Activity POC ABG pH POC ABG pCO2 POC ABG pO2 ABG pO2 ABG HCO3 ABG Base Excess ABG Hemoglobin Oxyhemoglobin Sodium Potassium Chloride Carbon Dioxide 21 L BUN 76 H Creatinine 1.6 H Glucose 133 H POC Glucose 177 H Lactic Acid Calcium Phosphorus Magnesium Direct Bilirubin AST ALT Alkaline Phosphatase Lactate Dehydrogenase Troponin T C-Reactive Protein Total Protein Albumin Prealbumin Triglycerides Cholesterol LDL Cholesterol Direct HDL Cholesterol Urine pH Urine WBC (Auto) Urine Creatinine Urine Total Protein Fluid Total Protein Vancomycin Trough Rheumatoid Factor Complement C4 Miscellaneous Test Crossmatch 12/08/16 12/08/16 12/09/16 11:45 18:00 00:00 WBC RBC Hgb Hct MCV MCH MCHC RDW Plt Count Lymph % (Auto) [place] % (Auto) Lymph # [place] # Baso # Seg Neutrophils % Seg Neuts % (Manual) Lymphocytes % (Manual) Monocytes % (Manual) Eosinophils % (Manual) Basophils % (Manual) Nucleated RBC % Seg Neutrophils # Seg Neutrophils # Man Lymphocytes # (Manual) Monocytes # (Manual) Eosinophils # (Manual) Basophils # (Manual) PT INR Fibrinogen dRVVT Confirm Interp Factor V Activity POC ABG pH POC ABG pCO2 POC ABG pO2 ABG pO2 ABG HCO3 ABG Base Excess ABG Hemoglobin Oxyhemoglobin Sodium Potassium Chloride Carbon Dioxide BUN Creatinine Glucose POC Glucose 163 H 123 H 137 H Lactic Acid Calcium Phosphorus Magnesium Direct Bilirubin AST ALT Alkaline Phosphatase Lactate Dehydrogenase Troponin T C-Reactive Protein Total Protein Albumin Prealbumin Triglycerides Cholesterol LDL Cholesterol Direct HDL Cholesterol Urine pH Urine WBC (Auto) Urine Creatinine Urine Total Protein Fluid Total Protein Vancomycin Trough Rheumatoid Factor Complement C4 Miscellaneous Test Crossmatch 12/09/16 12/09/16 12/09/16 05:34 06:00 06:00 WBC 15.5 H RBC 2.87 L Hgb 8.0 L Hct 24.2 L MCV MCH MCHC RDW 17.2 H Plt Count Lymph % (Auto) [place] % (Auto) 11.6 H Lymph # [place] # 1.8 H Baso # Seg Neutrophils % 70.8 H Seg Neuts % (Manual) Lymphocytes % (Manual) Monocytes % (Manual) Eosinophils % (Manual) Basophils % (Manual) Nucleated RBC % Seg Neutrophils # 11.0 H Seg Neutrophils # Man Lymphocytes # (Manual) Monocytes # (Manual) Eosinophils # (Manual) Basophils # (Manual) PT INR Fibrinogen dRVVT Confirm Interp Factor V Activity POC ABG pH POC ABG pCO2 POC ABG pO2 ABG pO2 ABG HCO3 ABG Base Excess ABG Hemoglobin Oxyhemoglobin Sodium Potassium Chloride Carbon Dioxide BUN 51 H Creatinine Glucose 117 H POC Glucose 136 H Lactic Acid Calcium Phosphorus Magnesium Direct Bilirubin AST ALT Alkaline Phosphatase Lactate Dehydrogenase Troponin T C-Reactive Protein Total Protein Albumin Prealbumin Triglycerides Cholesterol LDL Cholesterol Direct HDL Cholesterol Urine pH Urine WBC (Auto) Urine Creatinine Urine Total Protein Fluid Total Protein Vancomycin Trough Rheumatoid Factor Complement C4 Miscellaneous Test Crossmatch 12/09/16 12/09/16 12/09/16 12:29 17:52 23:10 WBC RBC Hgb Hct MCV MCH MCHC RDW Plt Count Lymph % (Auto) [place] % (Auto) Lymph # [place] # Baso # Seg Neutrophils % Seg Neuts % (Manual) Lymphocytes % (Manual) Monocytes % (Manual) Eosinophils % (Manual) Basophils % (Manual) Nucleated RBC % Seg Neutrophils # Seg Neutrophils # Man Lymphocytes # (Manual) Monocytes # (Manual) Eosinophils # (Manual) Basophils # (Manual) PT INR Fibrinogen dRVVT Confirm Interp Factor V Activity POC ABG pH POC ABG pCO2 POC ABG pO2 ABG pO2 ABG HCO3 ABG Base Excess ABG Hemoglobin Oxyhemoglobin Sodium Potassium Chloride Carbon Dioxide BUN Creatinine Glucose POC Glucose 139 H 140 H 129 H Lactic Acid Calcium Phosphorus Magnesium Direct Bilirubin AST ALT Alkaline Phosphatase Lactate Dehydrogenase Troponin T C-Reactive Protein Total Protein Albumin Prealbumin Triglycerides Cholesterol LDL Cholesterol Direct HDL Cholesterol Urine pH Urine WBC (Auto) Urine Creatinine Urine Total Protein Fluid Total Protein Vancomycin Trough Rheumatoid Factor Complement C4 Miscellaneous Test Crossmatch 12/10/16 12/10/16 12/10/16 05:00 05:00 06:54 WBC 15.7 H RBC 2.87 L Hgb 8.2 L Hct 24.4 L MCV MCH MCHC RDW 17.2 H Plt Count Lymph % (Auto) [place] % (Auto) 8.3 H Lymph # [place] # 1.3 H Baso # Seg Neutrophils % 72.8 H Seg Neuts % (Manual) Lymphocytes % (Manual) Monocytes % (Manual) Eosinophils % (Manual) Basophils % (Manual) Nucleated RBC % Seg Neutrophils # 11.4 H Seg Neutrophils # Man Lymphocytes # (Manual) Monocytes # (Manual) Eosinophils # (Manual) Basophils # (Manual) PT INR Fibrinogen dRVVT Confirm Interp Factor V Activity POC ABG pH POC ABG pCO2 POC ABG pO2 ABG pO2 ABG HCO3 ABG Base Excess ABG Hemoglobin Oxyhemoglobin Sodium Potassium Chloride Carbon Dioxide BUN 64 H Creatinine 1.4 H Glucose 134 H POC Glucose 154 H Lactic Acid Calcium Phosphorus Magnesium Direct Bilirubin AST ALT Alkaline Phosphatase Lactate Dehydrogenase Troponin T C-Reactive Protein Total Protein Albumin Prealbumin Triglycerides Cholesterol LDL Cholesterol Direct HDL Cholesterol Urine pH Urine WBC (Auto) Urine Creatinine Urine Total Protein Fluid Total Protein Vancomycin Trough Rheumatoid Factor Complement C4 Miscellaneous Test Crossmatch 12/10/16 12/10/16 12/10/16 11:58 17:29 23:52 WBC RBC Hgb Hct MCV MCH MCHC RDW Plt Count Lymph % (Auto) [place] % (Auto) Lymph # [place] # Baso # Seg Neutrophils % Seg Neuts % (Manual) Lymphocytes % (Manual) Monocytes % (Manual) Eosinophils % (Manual) Basophils % (Manual) Nucleated RBC % Seg Neutrophils # Seg Neutrophils # Man Lymphocytes # (Manual) Monocytes # (Manual) Eosinophils # (Manual) Basophils # (Manual) PT INR Fibrinogen dRVVT Confirm Interp Factor V Activity POC ABG pH POC ABG pCO2 POC ABG pO2 ABG pO2 ABG HCO3 ABG Base Excess ABG Hemoglobin Oxyhemoglobin Sodium Potassium Chloride Carbon Dioxide BUN Creatinine Glucose POC Glucose 144 H 163 H 125 H Lactic Acid Calcium Phosphorus Magnesium Direct Bilirubin AST ALT Alkaline Phosphatase Lactate Dehydrogenase Troponin T C-Reactive Protein Total Protein Albumin Prealbumin Triglycerides Cholesterol LDL Cholesterol Direct HDL Cholesterol Urine pH Urine WBC (Auto) Urine Creatinine Urine Total Protein Fluid Total Protein Vancomycin Trough Rheumatoid Factor Complement C4 Miscellaneous Test Crossmatch 12/11/16 12/11/16 12/11/16 05:38 06:30 06:30 WBC 14.4 H RBC 2.76 L Hgb 7.7 L Hct 23.4 L MCV MCH MCHC RDW 17.2 H Plt Count Lymph % (Auto) [place] % (Auto) 8.8 H Lymph # [place] # 1.3 H Baso # Seg Neutrophils % 72.5 H Seg Neuts % (Manual) Lymphocytes % (Manual) Monocytes % (Manual) Eosinophils % (Manual) Basophils % (Manual) Nucleated RBC % Seg Neutrophils # 10.5 H Seg Neutrophils # Man Lymphocytes # (Manual) Monocytes # (Manual) Eosinophils # (Manual) Basophils # (Manual) PT INR Fibrinogen dRVVT Confirm Interp Factor V Activity POC ABG pH POC ABG pCO2 POC ABG pO2 ABG pO2 ABG HCO3 ABG Base Excess ABG Hemoglobin Oxyhemoglobin Sodium Potassium Chloride Carbon Dioxide BUN 43 H Creatinine Glucose 124 H POC Glucose 141 H Lactic Acid Calcium 8.3 L Phosphorus Magnesium 1.60 L Direct Bilirubin AST ALT Alkaline Phosphatase Lactate Dehydrogenase Troponin T C-Reactive Protein Total Protein Albumin Prealbumin Triglycerides Cholesterol LDL Cholesterol Direct HDL Cholesterol Urine pH Urine WBC (Auto) Urine Creatinine Urine Total Protein Fluid Total Protein Vancomycin Trough Rheumatoid Factor Complement C4 Miscellaneous Test Crossmatch 12/11/16 12/11/16 12/11/16 11:15 17:59 23:48 WBC RBC Hgb Hct MCV MCH MCHC RDW Plt Count Lymph % (Auto) [place] % (Auto) Lymph # [place] # Baso # Seg Neutrophils % Seg Neuts % (Manual) Lymphocytes % (Manual) Monocytes % (Manual) Eosinophils % (Manual) Basophils % (Manual) Nucleated RBC % Seg Neutrophils # Seg Neutrophils # Man Lymphocytes # (Manual) Monocytes # (Manual) Eosinophils # (Manual) Basophils # (Manual) PT INR Fibrinogen dRVVT Confirm Interp Factor V Activity POC ABG pH POC ABG pCO2 POC ABG pO2 ABG pO2 ABG HCO3 ABG Base Excess ABG Hemoglobin Oxyhemoglobin Sodium Potassium Chloride Carbon Dioxide BUN Creatinine Glucose POC Glucose 188 H 106 H 119 H Lactic Acid Calcium Phosphorus Magnesium Direct Bilirubin AST ALT Alkaline Phosphatase Lactate Dehydrogenase Troponin T C-Reactive Protein Total Protein Albumin Prealbumin Triglycerides Cholesterol LDL Cholesterol Direct HDL Cholesterol Urine pH Urine WBC (Auto) Urine Creatinine Urine Total Protein Fluid Total Protein Vancomycin Trough Rheumatoid Factor Complement C4 Miscellaneous Test Crossmatch 12/12/16 12/12/16 12/12/16 05:00 06:01 12:20 WBC 16.7 H RBC 2.87 L Hgb 8.0 L Hct 24.2 L MCV MCH MCHC RDW 17.6 H Plt Count Lymph % (Auto) [place] % (Auto) Lymph # [place] # 1.2 H Baso # Seg Neutrophils % 75.3 H Seg Neuts % (Manual) Lymphocytes % (Manual) Monocytes % (Manual) Eosinophils % (Manual) Basophils % (Manual) Nucleated RBC % Seg Neutrophils # 12.6 H Seg Neutrophils # Man Lymphocytes # (Manual) Monocytes # (Manual) Eosinophils # (Manual) Basophils # (Manual) PT INR Fibrinogen dRVVT Confirm Interp Factor V Activity POC ABG pH POC ABG pCO2 POC ABG pO2 ABG pO2 ABG HCO3 ABG Base Excess ABG Hemoglobin Oxyhemoglobin Sodium Potassium Chloride Carbon Dioxide BUN Creatinine Glucose POC Glucose 134 H 149 H Lactic Acid Calcium Phosphorus Magnesium Direct Bilirubin AST ALT Alkaline Phosphatase Lactate Dehydrogenase Troponin T C-Reactive Protein Total Protein Albumin Prealbumin Triglycerides Cholesterol LDL Cholesterol Direct HDL Cholesterol Urine pH Urine WBC (Auto) Urine Creatinine Urine Total Protein Fluid Total Protein Vancomycin Trough Rheumatoid Factor Complement C4 Miscellaneous Test Crossmatch 12/12/16 12/12/16 12/12/16 17:38 23:01 Unknown WBC RBC Hgb Hct MCV MCH MCHC RDW Plt Count Lymph % (Auto) [place] % (Auto) Lymph # [place] # Baso # Seg Neutrophils % Seg Neuts % (Manual) Lymphocytes % (Manual) Monocytes % (Manual) Eosinophils % (Manual) Basophils % (Manual) Nucleated RBC % Seg Neutrophils # Seg Neutrophils # Man Lymphocytes # (Manual) Monocytes # (Manual) Eosinophils # (Manual) Basophils # (Manual) PT INR Fibrinogen dRVVT Confirm Interp Factor V Activity POC ABG pH POC ABG pCO2 POC ABG pO2 ABG pO2 ABG HCO3 ABG Base Excess ABG Hemoglobin Oxyhemoglobin Sodium Potassium Chloride Carbon Dioxide BUN 60 H Creatinine 1.3 H Glucose 126 H POC Glucose 127 H 144 H Lactic Acid Calcium Phosphorus Magnesium Direct Bilirubin AST ALT Alkaline Phosphatase Lactate Dehydrogenase Troponin T C-Reactive Protein Total Protein Albumin Prealbumin Triglycerides Cholesterol LDL Cholesterol Direct HDL Cholesterol Urine pH Urine WBC (Auto) Urine Creatinine Urine Total Protein Fluid Total Protein Vancomycin Trough Rheumatoid Factor Complement C4 Miscellaneous Test Crossmatch 12/13/16 12/13/16 12/13/16 04:00 04:00 05:19 WBC 18.7 H RBC 2.89 L Hgb 8.3 L Hct 24.6 L MCV MCH MCHC RDW 17.5 H Plt Count Lymph % (Auto) [place] % (Auto) Lymph # [place] # 1.3 H Baso # Seg Neutrophils % 71.5 H Seg Neuts % (Manual) Lymphocytes % (Manual) Monocytes % (Manual) Eosinophils % (Manual) Basophils % (Manual) Nucleated RBC % Seg Neutrophils # 13.4 H Seg Neutrophils # Man Lymphocytes # (Manual) Monocytes # (Manual) Eosinophils # (Manual) Basophils # (Manual) PT INR Fibrinogen dRVVT Confirm Interp Factor V Activity POC ABG pH POC ABG pCO2 POC ABG pO2 ABG pO2 ABG HCO3 ABG Base Excess ABG Hemoglobin Oxyhemoglobin Sodium Potassium Chloride Carbon Dioxide BUN 73 H Creatinine 1.5 H Glucose 141 H POC Glucose 171 H Lactic Acid Calcium Phosphorus Magnesium Direct Bilirubin AST ALT Alkaline Phosphatase Lactate Dehydrogenase Troponin T C-Reactive Protein Total Protein Albumin Prealbumin Triglycerides Cholesterol LDL Cholesterol Direct HDL Cholesterol Urine pH Urine WBC (Auto) Urine Creatinine Urine Total Protein Fluid Total Protein Vancomycin Trough Rheumatoid Factor Complement C4 Miscellaneous Test Crossmatch 12/13/16 12/13/16 12/14/16 12:28 16:48 00:01 WBC RBC Hgb Hct MCV MCH MCHC RDW Plt Count Lymph % (Auto) [place] % (Auto) Lymph # [place] # Baso # Seg Neutrophils % Seg Neuts % (Manual) Lymphocytes % (Manual) Monocytes % (Manual) Eosinophils % (Manual) Basophils % (Manual) Nucleated RBC % Seg Neutrophils # Seg Neutrophils # Man Lymphocytes # (Manual) Monocytes # (Manual) Eosinophils # (Manual) Basophils # (Manual) PT INR Fibrinogen dRVVT Confirm Interp Factor V Activity POC ABG pH POC ABG pCO2 POC ABG pO2 ABG pO2 ABG HCO3 ABG Base Excess ABG Hemoglobin Oxyhemoglobin Sodium Potassium Chloride Carbon Dioxide BUN Creatinine Glucose POC Glucose 206 H 173 H 139 H Lactic Acid Calcium Phosphorus Magnesium Direct Bilirubin AST ALT Alkaline Phosphatase Lactate Dehydrogenase Troponin T C-Reactive Protein Total Protein Albumin Prealbumin Triglycerides Cholesterol LDL Cholesterol Direct HDL Cholesterol Urine pH Urine WBC (Auto) Urine Creatinine Urine Total Protein Fluid Total Protein Vancomycin Trough Rheumatoid Factor Complement C4 Miscellaneous Test Crossmatch 12/14/16 12/14/16 12/14/16 05:16 06:10 11:17 WBC RBC Hgb Hct MCV MCH MCHC RDW Plt Count Lymph % (Auto) [place] % (Auto) Lymph # [place] # Baso # Seg Neutrophils % Seg Neuts % (Manual) Lymphocytes % (Manual) Monocytes % (Manual) Eosinophils % (Manual) Basophils % (Manual) Nucleated RBC % Seg Neutrophils # Seg Neutrophils # Man Lymphocytes # (Manual) Monocytes # (Manual) Eosinophils # (Manual) Basophils # (Manual) PT INR Fibrinogen dRVVT Confirm Interp Factor V Activity POC ABG pH POC ABG pCO2 POC ABG pO2 ABG pO2 ABG HCO3 ABG Base Excess ABG Hemoglobin Oxyhemoglobin Sodium Potassium Chloride Carbon Dioxide BUN 57 H Creatinine 1.4 H Glucose 135 H POC Glucose 158 H 137 H Lactic Acid Calcium Phosphorus Magnesium Direct Bilirubin AST ALT Alkaline Phosphatase Lactate Dehydrogenase Troponin T C-Reactive Protein Total Protein Albumin Prealbumin Triglycerides Cholesterol LDL Cholesterol Direct HDL Cholesterol Urine pH Urine WBC (Auto) Urine Creatinine Urine Total Protein Fluid Total Protein Vancomycin Trough Rheumatoid Factor Complement C4 Miscellaneous Test Crossmatch 12/14/16 12/14/16 12/15/16 17:52 23:27 04:00 WBC RBC Hgb Hct MCV MCH MCHC RDW Plt Count Lymph % (Auto) [place] % (Auto) Lymph # [place] # Baso # Seg Neutrophils % Seg Neuts % (Manual) Lymphocytes % (Manual) Monocytes % (Manual) Eosinophils % (Manual) Basophils % (Manual) Nucleated RBC % Seg Neutrophils # Seg Neutrophils # Man Lymphocytes # (Manual) Monocytes # (Manual) Eosinophils # (Manual) Basophils # (Manual) PT INR Fibrinogen dRVVT Confirm Interp Factor V Activity POC ABG pH POC ABG pCO2 POC ABG pO2 ABG pO2 ABG HCO3 ABG Base Excess ABG Hemoglobin Oxyhemoglobin Sodium Potassium Chloride 97.9 L Carbon Dioxide BUN 75 H Creatinine 1.6 H Glucose 122 H POC Glucose 149 H 163 H Lactic Acid Calcium Phosphorus 5.20 H Magnesium Direct Bilirubin AST ALT Alkaline Phosphatase Lactate Dehydrogenase Troponin T C-Reactive Protein Total Protein Albumin Prealbumin Triglycerides Cholesterol LDL Cholesterol Direct HDL Cholesterol Urine pH Urine WBC (Auto) Urine Creatinine Urine Total Protein Fluid Total Protein Vancomycin Trough Rheumatoid Factor Complement C4 Miscellaneous Test Crossmatch 12/15/16 12/15/16 12/15/16 05:50 11:24 17:01 WBC RBC Hgb Hct MCV MCH MCHC RDW Plt Count Lymph % (Auto) [place] % (Auto) Lymph # [place] # Baso # Seg Neutrophils % Seg Neuts % (Manual) Lymphocytes % (Manual) Monocytes % (Manual) Eosinophils % (Manual) Basophils % (Manual) Nucleated RBC % Seg Neutrophils # Seg Neutrophils # Man Lymphocytes # (Manual) Monocytes # (Manual) Eosinophils # (Manual) Basophils # (Manual) PT INR Fibrinogen dRVVT Confirm Interp Factor V Activity POC ABG pH POC ABG pCO2 POC ABG pO2 ABG pO2 ABG HCO3 ABG Base Excess ABG Hemoglobin Oxyhemoglobin Sodium Potassium Chloride Carbon Dioxide BUN Creatinine Glucose POC Glucose 150 H 146 H 167 H Lactic Acid Calcium Phosphorus Magnesium Direct Bilirubin AST ALT Alkaline Phosphatase Lactate Dehydrogenase Troponin T C-Reactive Protein Total Protein Albumin Prealbumin Triglycerides Cholesterol LDL Cholesterol Direct HDL Cholesterol Urine pH Urine WBC (Auto) Urine Creatinine Urine Total Protein Fluid Total Protein Vancomycin Trough Rheumatoid Factor Complement C4 Miscellaneous Test Crossmatch 12/15/16 12/16/16 12/16/16 23:34 05:25 11:24 WBC RBC Hgb Hct MCV MCH MCHC RDW Plt Count Lymph % (Auto) [place] % (Auto) Lymph # [place] # Baso # Seg Neutrophils % Seg Neuts % (Manual) Lymphocytes % (Manual) Monocytes % (Manual) Eosinophils % (Manual) Basophils % (Manual) Nucleated RBC % Seg Neutrophils # Seg Neutrophils # Man Lymphocytes # (Manual) Monocytes # (Manual) Eosinophils # (Manual) Basophils # (Manual) PT INR Fibrinogen dRVVT Confirm Interp Factor V Activity POC ABG pH POC ABG pCO2 POC ABG pO2 ABG pO2 ABG HCO3 ABG Base Excess ABG Hemoglobin Oxyhemoglobin Sodium Potassium Chloride Carbon Dioxide BUN Creatinine Glucose POC Glucose 127 H 139 H 165 H Lactic Acid Calcium Phosphorus Magnesium Direct Bilirubin AST ALT Alkaline Phosphatase Lactate Dehydrogenase Troponin T C-Reactive Protein Total Protein Albumin Prealbumin Triglycerides Cholesterol LDL Cholesterol Direct HDL Cholesterol Urine pH Urine WBC (Auto) Urine Creatinine Urine Total Protein Fluid Total Protein Vancomycin Trough Rheumatoid Factor Complement C4 Miscellaneous Test Crossmatch 12/16/16 12/16/16 12/16/16 15:30 16:25 17:31 WBC 17.8 H RBC 2.38 L Hgb 6.4 L Hct 20.3 L MCV MCH 27 L MCHC RDW 17.4 H Plt Count Lymph % (Auto) [place] % (Auto) Lymph # [place] # Baso # Seg Neutrophils % Seg Neuts % (Manual) Lymphocytes % (Manual) Monocytes % (Manual) 10.0 H Eosinophils % (Manual) Basophils % (Manual) Nucleated RBC % Seg Neutrophils # Seg Neutrophils # Man 8.5 H Lymphocytes # (Manual) Monocytes # (Manual) 1.8 H Eosinophils # (Manual) Basophils # (Manual) PT INR Fibrinogen dRVVT Confirm Interp Factor V Activity POC ABG pH POC ABG pCO2 POC ABG pO2 ABG pO2 ABG HCO3 ABG Base Excess ABG Hemoglobin Oxyhemoglobin Sodium Potassium Chloride Carbon Dioxide BUN Creatinine Glucose POC Glucose 176 H Lactic Acid Calcium Phosphorus Magnesium Direct Bilirubin AST ALT Alkaline Phosphatase Lactate Dehydrogenase Troponin T C-Reactive Protein Total Protein Albumin Prealbumin Triglycerides Cholesterol LDL Cholesterol Direct HDL Cholesterol Urine pH Urine WBC (Auto) Urine Creatinine Urine Total Protein Fluid Total Protein Vancomycin Trough Rheumatoid Factor Complement C4 Miscellaneous Test Crossmatch See Detail 12/17/16 12/17/16 12/17/16 00:14 04:00 05:00 WBC 20.0 H RBC 2.99 L Hgb 8.5 L Hct 25.7 L MCV MCH MCHC RDW 17.2 H Plt Count Lymph % (Auto) [place] % (Auto) Lymph # [place] # Baso # Seg Neutrophils % Seg Neuts % (Manual) Lymphocytes % (Manual) Monocytes % (Manual) Eosinophils % (Manual) Basophils % (Manual) Nucleated RBC % Seg Neutrophils # Seg Neutrophils # Man Lymphocytes # (Manual) Monocytes # (Manual) Eosinophils # (Manual) Basophils # (Manual) PT INR Fibrinogen dRVVT Confirm Interp Factor V Activity POC ABG pH POC ABG pCO2 POC ABG pO2 ABG pO2 ABG HCO3 ABG Base Excess ABG Hemoglobin Oxyhemoglobin Sodium Potassium Chloride 97.7 L Carbon Dioxide BUN 73 H Creatinine 1.7 H Glucose 136 H POC Glucose 148 H Lactic Acid Calcium Phosphorus 2.20 L Magnesium 2.70 H Direct Bilirubin AST ALT Alkaline Phosphatase Lactate Dehydrogenase Troponin T C-Reactive Protein Total Protein Albumin Prealbumin Triglycerides Cholesterol LDL Cholesterol Direct HDL Cholesterol Urine pH Urine WBC (Auto) Urine Creatinine Urine Total Protein Fluid Total Protein Vancomycin Trough Rheumatoid Factor Complement C4 Miscellaneous Test Crossmatch 12/17/16 12/17/16 12/17/16 05:39 12:50 16:32 WBC RBC Hgb Hct MCV MCH MCHC RDW Plt Count Lymph % (Auto) [place] % (Auto) Lymph # [place] # Baso # Seg Neutrophils % Seg Neuts % (Manual) Lymphocytes % (Manual) Monocytes % (Manual) Eosinophils % (Manual) Basophils % (Manual) Nucleated RBC % Seg Neutrophils # Seg Neutrophils # Man Lymphocytes # (Manual) Monocytes # (Manual) Eosinophils # (Manual) Basophils # (Manual) PT INR Fibrinogen dRVVT Confirm Interp Factor V Activity POC ABG pH POC ABG pCO2 POC ABG pO2 ABG pO2 ABG HCO3 ABG Base Excess ABG Hemoglobin Oxyhemoglobin Sodium Potassium Chloride Carbon Dioxide BUN Creatinine Glucose POC Glucose 162 H 146 H 169 H Lactic Acid Calcium Phosphorus Magnesium Direct Bilirubin AST ALT Alkaline Phosphatase Lactate Dehydrogenase Troponin T C-Reactive Protein Total Protein Albumin Prealbumin Triglycerides Cholesterol LDL Cholesterol Direct HDL Cholesterol Urine pH Urine WBC (Auto) Urine Creatinine Urine Total Protein Fluid Total Protein Vancomycin Trough Rheumatoid Factor Complement C4 Miscellaneous Test Crossmatch 12/17/16 12/18/16 12/18/16 23:57 05:00 05:32 WBC RBC Hgb Hct MCV MCH MCHC RDW Plt Count Lymph % (Auto) [place] % (Auto) Lymph # [place] # Baso # Seg Neutrophils % Seg Neuts % (Manual) Lymphocytes % (Manual) Monocytes % (Manual) Eosinophils % (Manual) Basophils % (Manual) Nucleated RBC % Seg Neutrophils # Seg Neutrophils # Man Lymphocytes # (Manual) Monocytes # (Manual) Eosinophils # (Manual) Basophils # (Manual) PT INR Fibrinogen dRVVT Confirm Interp Factor V Activity POC ABG pH POC ABG pCO2 POC ABG pO2 ABG pO2 ABG HCO3 ABG Base Excess ABG Hemoglobin Oxyhemoglobin Sodium Potassium Chloride 97.0 L Carbon Dioxide BUN 63 H Creatinine 1.4 H Glucose 174 H POC Glucose 145 H 201 H Lactic Acid Calcium Phosphorus 1.70 L D Magnesium Direct Bilirubin AST ALT Alkaline Phosphatase 257 H Lactate Dehydrogenase Troponin T C-Reactive Protein Total Protein 5.9 L Albumin 1.8 L Prealbumin Triglycerides Cholesterol LDL Cholesterol Direct HDL Cholesterol Urine pH Urine WBC (Auto) Urine Creatinine Urine Total Protein Fluid Total Protein Vancomycin Trough Rheumatoid Factor Complement C4 Miscellaneous Test Crossmatch 12/18/16 12/18/16 12/18/16 11:43 16:52 23:52 WBC RBC Hgb Hct MCV MCH MCHC RDW Plt Count Lymph % (Auto) [place] % (Auto) Lymph # [place] # Baso # Seg Neutrophils % Seg Neuts % (Manual) Lymphocytes % (Manual) Monocytes % (Manual) Eosinophils % (Manual) Basophils % (Manual) Nucleated RBC % Seg Neutrophils # Seg Neutrophils # Man Lymphocytes # (Manual) Monocytes # (Manual) Eosinophils # (Manual) Basophils # (Manual) PT INR Fibrinogen dRVVT Confirm Interp Factor V Activity POC ABG pH POC ABG pCO2 POC ABG pO2 ABG pO2 ABG HCO3 ABG Base Excess ABG Hemoglobin Oxyhemoglobin Sodium Potassium Chloride Carbon Dioxide BUN Creatinine Glucose POC Glucose 177 H 110 H 162 H Lactic Acid Calcium Phosphorus Magnesium Direct Bilirubin AST ALT Alkaline Phosphatase Lactate Dehydrogenase Troponin T C-Reactive Protein Total Protein Albumin Prealbumin Triglycerides Cholesterol LDL Cholesterol Direct HDL Cholesterol Urine pH Urine WBC (Auto) Urine Creatinine Urine Total Protein Fluid Total Protein Vancomycin Trough Rheumatoid Factor Complement C4 Miscellaneous Test Crossmatch 12/19/16 12/19/16 12/19/16 05:02 05:24 09:30 WBC 20.1 H RBC 2.73 L Hgb 7.6 L Hct 23.6 L MCV MCH MCHC RDW 17.6 H Plt Count Lymph % (Auto) [place] % (Auto) Lymph # [place] # Baso # Seg Neutrophils % Seg Neuts % (Manual) Lymphocytes % (Manual) 13.0 L Monocytes % (Manual) Eosinophils % (Manual) Basophils % (Manual) Nucleated RBC % 1.0 H Seg Neutrophils # Seg Neutrophils # Man 12.9 H Lymphocytes # (Manual) Monocytes # (Manual) 1.4 H Eosinophils # (Manual) Basophils # (Manual) 0.2 H PT INR Fibrinogen dRVVT Confirm Interp Factor V Activity POC ABG pH POC ABG pCO2 POC ABG pO2 ABG pO2 ABG HCO3 ABG Base Excess ABG Hemoglobin Oxyhemoglobin Sodium Potassium Chloride 97.8 L Carbon Dioxide BUN 84 H Creatinine 1.6 H Glucose 133 H POC Glucose 134 H Lactic Acid Calcium Phosphorus Magnesium Direct Bilirubin AST ALT Alkaline Phosphatase Lactate Dehydrogenase Troponin T C-Reactive Protein Total Protein Albumin Prealbumin Triglycerides Cholesterol LDL Cholesterol Direct HDL Cholesterol Urine pH Urine WBC (Auto) Urine Creatinine Urine Total Protein Fluid Total Protein Vancomycin Trough Rheumatoid Factor Complement C4 Miscellaneous Test Crossmatch 12/19/16 12/19/16 12/19/16 09:36 11:12 18:29 WBC RBC Hgb Hct MCV MCH MCHC RDW Plt Count Lymph % (Auto) [place] % (Auto) Lymph # [place] # Baso # Seg Neutrophils % Seg Neuts % (Manual) Lymphocytes % (Manual) Monocytes % (Manual) Eosinophils % (Manual) Basophils % (Manual) Nucleated RBC % Seg Neutrophils # Seg Neutrophils # Man Lymphocytes # (Manual) Monocytes # (Manual) Eosinophils # (Manual) Basophils # (Manual) PT INR Fibrinogen dRVVT Confirm Interp Factor V Activity POC ABG pH 7.503 H POC ABG pCO2 30.1 L POC ABG pO2 ABG pO2 ABG HCO3 ABG Base Excess ABG Hemoglobin Oxyhemoglobin Sodium Potassium Chloride Carbon Dioxide BUN Creatinine Glucose POC Glucose 138 H 156 H Lactic Acid Calcium Phosphorus Magnesium Direct Bilirubin AST ALT Alkaline Phosphatase Lactate Dehydrogenase Troponin T C-Reactive Protein Total Protein Albumin Prealbumin Triglycerides Cholesterol LDL Cholesterol Direct HDL Cholesterol Urine pH Urine WBC (Auto) Urine Creatinine Urine Total Protein Fluid Total Protein Vancomycin Trough Rheumatoid Factor Complement C4 Miscellaneous Test Crossmatch 12/20/16 12/20/16 12/20/16 00:03 06:17 07:07 WBC RBC Hgb Hct MCV MCH MCHC RDW Plt Count Lymph % (Auto) [place] % (Auto) Lymph # [place] # Baso # Seg Neutrophils % Seg Neuts % (Manual) Lymphocytes % (Manual) Monocytes % (Manual) Eosinophils % (Manual) Basophils % (Manual) Nucleated RBC % Seg Neutrophils # Seg Neutrophils # Man Lymphocytes # (Manual) Monocytes # (Manual) Eosinophils # (Manual) Basophils # (Manual) PT INR Fibrinogen dRVVT Confirm Interp Factor V Activity POC ABG pH POC ABG pCO2 POC ABG pO2 ABG pO2 ABG HCO3 ABG Base Excess ABG Hemoglobin Oxyhemoglobin Sodium Potassium Chloride 97.1 L Carbon Dioxide 20 L BUN 97 H Creatinine 1.8 H Glucose 153 H POC Glucose 152 H 175 H Lactic Acid Calcium Phosphorus Magnesium Direct Bilirubin AST ALT Alkaline Phosphatase Lactate Dehydrogenase Troponin T C-Reactive Protein Total Protein Albumin Prealbumin Triglycerides Cholesterol LDL Cholesterol Direct HDL Cholesterol Urine pH Urine WBC (Auto) Urine Creatinine Urine Total Protein Fluid Total Protein Vancomycin Trough Rheumatoid Factor Complement C4 Miscellaneous Test Crossmatch 12/20/16 12/20/16 12/20/16 12:00 17:42 23:53 WBC RBC Hgb Hct MCV MCH MCHC RDW Plt Count Lymph % (Auto) [place] % (Auto) Lymph # [place] # Baso # Seg Neutrophils % Seg Neuts % (Manual) Lymphocytes % (Manual) Monocytes % (Manual) Eosinophils % (Manual) Basophils % (Manual) Nucleated RBC % Seg Neutrophils # Seg Neutrophils # Man Lymphocytes # (Manual) Monocytes # (Manual) Eosinophils # (Manual) Basophils # (Manual) PT INR Fibrinogen dRVVT Confirm Interp Factor V Activity POC ABG pH POC ABG pCO2 POC ABG pO2 ABG pO2 ABG HCO3 ABG Base Excess ABG Hemoglobin Oxyhemoglobin Sodium Potassium Chloride Carbon Dioxide BUN Creatinine Glucose POC Glucose 141 H 156 H 132 H Lactic Acid Calcium Phosphorus Magnesium Direct Bilirubin AST ALT Alkaline Phosphatase Lactate Dehydrogenase Troponin T C-Reactive Protein Total Protein Albumin Prealbumin Triglycerides Cholesterol LDL Cholesterol Direct HDL Cholesterol Urine pH Urine WBC (Auto) Urine Creatinine Urine Total Protein Fluid Total Protein Vancomycin Trough Rheumatoid Factor Complement C4 Miscellaneous Test Crossmatch 12/21/16 12/21/16 12/21/16 05:49 08:50 12:19 WBC RBC Hgb Hct MCV MCH MCHC RDW Plt Count Lymph % (Auto) [place] % (Auto) Lymph # [place] # Baso # Seg Neutrophils % Seg Neuts % (Manual) Lymphocytes % (Manual) Monocytes % (Manual) Eosinophils % (Manual) Basophils % (Manual) Nucleated RBC % Seg Neutrophils # Seg Neutrophils # Man Lymphocytes # (Manual) Monocytes # (Manual) Eosinophils # (Manual) Basophils # (Manual) PT INR Fibrinogen dRVVT Confirm Interp Factor V Activity POC ABG pH POC ABG pCO2 POC ABG pO2 ABG pO2 ABG HCO3 ABG Base Excess ABG Hemoglobin Oxyhemoglobin Sodium Potassium 5.2 H D Chloride Carbon Dioxide BUN 63 H Creatinine Glucose 122 H POC Glucose 132 H 136 H Lactic Acid Calcium 8.3 L Phosphorus Magnesium Direct Bilirubin AST ALT Alkaline Phosphatase Lactate Dehydrogenase Troponin T C-Reactive Protein Total Protein Albumin Prealbumin Triglycerides Cholesterol LDL Cholesterol Direct HDL Cholesterol Urine pH Urine WBC (Auto) Urine Creatinine Urine Total Protein Fluid Total Protein Vancomycin Trough Rheumatoid Factor Complement C4 Miscellaneous Test Crossmatch 12/21/16 12/21/16 12/22/16 17:22 23:58 05:49 WBC RBC Hgb Hct MCV MCH MCHC RDW Plt Count Lymph % (Auto) [place] % (Auto) Lymph # [place] # Baso # Seg Neutrophils % Seg Neuts % (Manual) Lymphocytes % (Manual) Monocytes % (Manual) Eosinophils % (Manual) Basophils % (Manual) Nucleated RBC % Seg Neutrophils # Seg Neutrophils # Man Lymphocytes # (Manual) Monocytes # (Manual) Eosinophils # (Manual) Basophils # (Manual) PT INR Fibrinogen dRVVT Confirm Interp Factor V Activity POC ABG pH POC ABG pCO2 POC ABG pO2 ABG pO2 ABG HCO3 ABG Base Excess ABG Hemoglobin Oxyhemoglobin Sodium Potassium Chloride Carbon Dioxide BUN Creatinine Glucose POC Glucose 135 H 149 H 140 H Lactic Acid Calcium Phosphorus Magnesium Direct Bilirubin AST ALT Alkaline Phosphatase Lactate Dehydrogenase Troponin T C-Reactive Protein Total Protein Albumin Prealbumin Triglycerides Cholesterol LDL Cholesterol Direct HDL Cholesterol Urine pH Urine WBC (Auto) Urine Creatinine Urine Total Protein Fluid Total Protein Vancomycin Trough Rheumatoid Factor Complement C4 Miscellaneous Test Crossmatch 12/22/16 12/22/16 12/22/16 06:10 11:17 17:31 WBC RBC Hgb Hct MCV MCH MCHC RDW Plt Count Lymph % (Auto) [place] % (Auto) Lymph # [place] # Baso # Seg Neutrophils % Seg Neuts % (Manual) Lymphocytes % (Manual) Monocytes % (Manual) Eosinophils % (Manual) Basophils % (Manual) Nucleated RBC % Seg Neutrophils # Seg Neutrophils # Man Lymphocytes # (Manual) Monocytes # (Manual) Eosinophils # (Manual) Basophils # (Manual) PT INR Fibrinogen dRVVT Confirm Interp Factor V Activity POC ABG pH POC ABG pCO2 POC ABG pO2 ABG pO2 ABG HCO3 ABG Base Excess ABG Hemoglobin Oxyhemoglobin Sodium Potassium Chloride Carbon Dioxide BUN 76 H Creatinine 1.5 H Glucose 241 H POC Glucose 193 H 148 H Lactic Acid Calcium Phosphorus Magnesium Direct Bilirubin AST ALT Alkaline Phosphatase Lactate Dehydrogenase Troponin T C-Reactive Protein Total Protein Albumin Prealbumin Triglycerides Cholesterol LDL Cholesterol Direct HDL Cholesterol Urine pH Urine WBC (Auto) Urine Creatinine Urine Total Protein Fluid Total Protein Vancomycin Trough Rheumatoid Factor Complement C4 Miscellaneous Test Crossmatch 12/22/16 12/23/16 12/23/16 23:58 05:00 05:26 WBC RBC Hgb Hct MCV MCH MCHC RDW Plt Count Lymph % (Auto) [place] % (Auto) Lymph # [place] # Baso # Seg Neutrophils % Seg Neuts % (Manual) Lymphocytes % (Manual) Monocytes % (Manual) Eosinophils % (Manual) Basophils % (Manual) Nucleated RBC % Seg Neutrophils # Seg Neutrophils # Man Lymphocytes # (Manual) Monocytes # (Manual) Eosinophils # (Manual) Basophils # (Manual) PT INR Fibrinogen dRVVT Confirm Interp Factor V Activity POC ABG pH POC ABG pCO2 POC ABG pO2 ABG pO2 ABG HCO3 ABG Base Excess ABG Hemoglobin Oxyhemoglobin Sodium Potassium Chloride Carbon Dioxide BUN 49 H Creatinine Glucose 143 H POC Glucose 165 H 154 H Lactic Acid Calcium 8.2 L Phosphorus Magnesium 1.60 L Direct Bilirubin AST ALT Alkaline Phosphatase Lactate Dehydrogenase Troponin T C-Reactive Protein Total Protein Albumin Prealbumin Triglycerides Cholesterol LDL Cholesterol Direct HDL Cholesterol Urine pH Urine WBC (Auto) Urine Creatinine Urine Total Protein Fluid Total Protein Vancomycin Trough Rheumatoid Factor Complement C4 Miscellaneous Test Crossmatch 12/23/16 12/23/16 12/24/16 12:35 17:01 00:01 WBC RBC Hgb Hct MCV MCH MCHC RDW Plt Count Lymph % (Auto) [place] % (Auto) Lymph # [place] # Baso # Seg Neutrophils % Seg Neuts % (Manual) Lymphocytes % (Manual) Monocytes % (Manual) Eosinophils % (Manual) Basophils % (Manual) Nucleated RBC % Seg Neutrophils # Seg Neutrophils # Man Lymphocytes # (Manual) Monocytes # (Manual) Eosinophils # (Manual) Basophils # (Manual) PT INR Fibrinogen dRVVT Confirm Interp Factor V Activity POC ABG pH POC ABG pCO2 POC ABG pO2 ABG pO2 ABG HCO3 ABG Base Excess ABG Hemoglobin Oxyhemoglobin Sodium Potassium Chloride Carbon Dioxide BUN Creatinine Glucose POC Glucose 164 H 149 H 135 H Lactic Acid Calcium Phosphorus Magnesium Direct Bilirubin AST ALT Alkaline Phosphatase Lactate Dehydrogenase Troponin T C-Reactive Protein Total Protein Albumin Prealbumin Triglycerides Cholesterol LDL Cholesterol Direct HDL Cholesterol Urine pH Urine WBC (Auto) Urine Creatinine Urine Total Protein Fluid Total Protein Vancomycin Trough Rheumatoid Factor Complement C4 Miscellaneous Test Crossmatch 12/24/16 12/24/16 12/24/16 05:41 07:01 11:38 WBC RBC Hgb Hct MCV MCH MCHC RDW Plt Count Lymph % (Auto) [place] % (Auto) Lymph # [place] # Baso # Seg Neutrophils % Seg Neuts % (Manual) Lymphocytes % (Manual) Monocytes % (Manual) Eosinophils % (Manual) Basophils % (Manual) Nucleated RBC % Seg Neutrophils # Seg Neutrophils # Man Lymphocytes # (Manual) Monocytes # (Manual) Eosinophils # (Manual) Basophils # (Manual) PT INR Fibrinogen dRVVT Confirm Interp Factor V Activity POC ABG pH POC ABG pCO2 POC ABG pO2 ABG pO2 ABG HCO3 ABG Base Excess ABG Hemoglobin Oxyhemoglobin Sodium Potassium Chloride Carbon Dioxide BUN 72 H Creatinine 1.3 H Glucose 130 H POC Glucose 132 H 156 H Lactic Acid Calcium 8.2 L Phosphorus Magnesium Direct Bilirubin AST ALT Alkaline Phosphatase Lactate Dehydrogenase Troponin T C-Reactive Protein Total Protein Albumin Prealbumin Triglycerides Cholesterol LDL Cholesterol Direct HDL Cholesterol Urine pH Urine WBC (Auto) Urine Creatinine Urine Total Protein Fluid Total Protein Vancomycin Trough Rheumatoid Factor Complement C4 Miscellaneous Test Crossmatch 12/24/16 12/25/16 12/25/16 17:53 00:23 05:45 WBC RBC Hgb Hct MCV MCH MCHC RDW Plt Count Lymph % (Auto) [place] % (Auto) Lymph # [place] # Baso # Seg Neutrophils % Seg Neuts % (Manual) Lymphocytes % (Manual) Monocytes % (Manual) Eosinophils % (Manual) Basophils % (Manual) Nucleated RBC % Seg Neutrophils # Seg Neutrophils # Man Lymphocytes # (Manual) Monocytes # (Manual) Eosinophils # (Manual) Basophils # (Manual) PT INR Fibrinogen dRVVT Confirm Interp Factor V Activity POC ABG pH POC ABG pCO2 POC ABG pO2 ABG pO2 ABG HCO3 ABG Base Excess ABG Hemoglobin Oxyhemoglobin Sodium 146 H Potassium Chloride Carbon Dioxide BUN 51 H Creatinine Glucose 109 H POC Glucose 169 H 117 H Lactic Acid Calcium Phosphorus Magnesium Direct Bilirubin AST ALT Alkaline Phosphatase Lactate Dehydrogenase Troponin T C-Reactive Protein Total Protein Albumin Prealbumin Triglycerides Cholesterol LDL Cholesterol Direct HDL Cholesterol Urine pH Urine WBC (Auto) Urine Creatinine Urine Total Protein Fluid Total Protein Vancomycin Trough Rheumatoid Factor Complement C4 Miscellaneous Test Crossmatch 12/25/16 12/25/16 12/25/16 06:43 11:29 17:14 WBC RBC Hgb Hct MCV MCH MCHC RDW Plt Count Lymph % (Auto) [place] % (Auto) Lymph # [place] # Baso # Seg Neutrophils % Seg Neuts % (Manual) Lymphocytes % (Manual) Monocytes % (Manual) Eosinophils % (Manual) Basophils % (Manual) Nucleated RBC % Seg Neutrophils # Seg Neutrophils # Man Lymphocytes # (Manual) Monocytes # (Manual) Eosinophils # (Manual) Basophils # (Manual) PT INR Fibrinogen dRVVT Confirm Interp Factor V Activity POC ABG pH POC ABG pCO2 POC ABG pO2 ABG pO2 ABG HCO3 ABG Base Excess ABG Hemoglobin Oxyhemoglobin Sodium Potassium Chloride Carbon Dioxide BUN Creatinine Glucose POC Glucose 117 H 128 H 120 H Lactic Acid Calcium Phosphorus Magnesium Direct Bilirubin AST ALT Alkaline Phosphatase Lactate Dehydrogenase Troponin T C-Reactive Protein Total Protein Albumin Prealbumin Triglycerides Cholesterol LDL Cholesterol Direct HDL Cholesterol Urine pH Urine WBC (Auto) Urine Creatinine Urine Total Protein Fluid Total Protein Vancomycin Trough Rheumatoid Factor Complement C4 Miscellaneous Test Crossmatch 12/25/16 12/26/16 12/26/16 23:54 05:40 05:50 WBC 16.2 H RBC 2.32 L Hgb 6.2 L Hct 20.1 L MCV MCH 27 L MCHC RDW 18.6 H Plt Count Lymph % (Auto) [place] % (Auto) Lymph # [place] # Baso # Seg Neutrophils % Seg Neuts % (Manual) Lymphocytes % (Manual) Monocytes % (Manual) Eosinophils % (Manual) Basophils % (Manual) Nucleated RBC % Seg Neutrophils # Seg Neutrophils # Man Lymphocytes # (Manual) Monocytes # (Manual) Eosinophils # (Manual) Basophils # (Manual) PT INR Fibrinogen dRVVT Confirm Interp Factor V Activity POC ABG pH POC ABG pCO2 POC ABG pO2 ABG pO2 ABG HCO3 ABG Base Excess ABG Hemoglobin Oxyhemoglobin Sodium Potassium Chloride Carbon Dioxide BUN Creatinine Glucose POC Glucose 126 H 132 H Lactic Acid Calcium Phosphorus Magnesium Direct Bilirubin AST ALT Alkaline Phosphatase Lactate Dehydrogenase Troponin T C-Reactive Protein Total Protein Albumin Prealbumin Triglycerides Cholesterol LDL Cholesterol Direct HDL Cholesterol Urine pH Urine WBC (Auto) Urine Creatinine Urine Total Protein Fluid Total Protein Vancomycin Trough Rheumatoid Factor Complement C4 Miscellaneous Test Crossmatch 12/26/16 12/26/16 12/26/16 05:50 12:17 12:33 WBC RBC Hgb Hct MCV MCH MCHC RDW Plt Count Lymph % (Auto) [place] % (Auto) Lymph # [place] # Baso # Seg Neutrophils % Seg Neuts % (Manual) Lymphocytes % (Manual) Monocytes % (Manual) Eosinophils % (Manual) Basophils % (Manual) Nucleated RBC % Seg Neutrophils # Seg Neutrophils # Man Lymphocytes # (Manual) Monocytes # (Manual) Eosinophils # (Manual) Basophils # (Manual) PT INR Fibrinogen dRVVT Confirm Interp Factor V Activity POC ABG pH POC ABG pCO2 POC ABG pO2 ABG pO2 ABG HCO3 ABG Base Excess ABG Hemoglobin Oxyhemoglobin Sodium Potassium Chloride Carbon Dioxide BUN 73 H Creatinine 1.3 H Glucose 113 H POC Glucose 117 H Lactic Acid Calcium Phosphorus Magnesium Direct Bilirubin AST ALT Alkaline Phosphatase Lactate Dehydrogenase Troponin T C-Reactive Protein Total Protein Albumin Prealbumin Triglycerides Cholesterol LDL Cholesterol Direct HDL Cholesterol Urine pH Urine WBC (Auto) Urine Creatinine Urine Total Protein Fluid Total Protein Vancomycin Trough Rheumatoid Factor Complement C4 Miscellaneous Test Crossmatch See Detail 12/26/16 12/26/16 12/27/16 20:00 23:21 05:00 WBC RBC Hgb 8.4 L Hct 26.3 L D MCV MCH MCHC RDW Plt Count Lymph % (Auto) [place] % (Auto) Lymph # [place] # Baso # Seg Neutrophils % Seg Neuts % (Manual) Lymphocytes % (Manual) Monocytes % (Manual) Eosinophils % (Manual) Basophils % (Manual) Nucleated RBC % Seg Neutrophils # Seg Neutrophils # Man Lymphocytes # (Manual) Monocytes # (Manual) Eosinophils # (Manual) Basophils # (Manual) PT INR Fibrinogen dRVVT Confirm Interp Factor V Activity POC ABG pH POC ABG pCO2 POC ABG pO2 ABG pO2 ABG HCO3 ABG Base Excess ABG Hemoglobin Oxyhemoglobin Sodium Potassium Chloride Carbon Dioxide BUN 85 H Creatinine 1.6 H Glucose 118 H POC Glucose 124 H Lactic Acid Calcium Phosphorus 4.80 H Magnesium Direct Bilirubin AST ALT Alkaline Phosphatase Lactate Dehydrogenase Troponin T C-Reactive Protein Total Protein Albumin Prealbumin Triglycerides Cholesterol LDL Cholesterol Direct HDL Cholesterol Urine pH Urine WBC (Auto) Urine Creatinine Urine Total Protein Fluid Total Protein Vancomycin Trough Rheumatoid Factor Complement C4 Miscellaneous Test Crossmatch 12/27/16 12/27/16 12/27/16 05:00 05:35 12:24 WBC RBC Hgb 7.6 L Hct 22.8 L MCV MCH MCHC RDW Plt Count Lymph % (Auto) [place] % (Auto) Lymph # [place] # Baso # Seg Neutrophils % Seg Neuts % (Manual) Lymphocytes % (Manual) Monocytes % (Manual) Eosinophils % (Manual) Basophils % (Manual) Nucleated RBC % Seg Neutrophils # Seg Neutrophils # Man Lymphocytes # (Manual) Monocytes # (Manual) Eosinophils # (Manual) Basophils # (Manual) PT INR Fibrinogen dRVVT Confirm Interp Factor V Activity POC ABG pH POC ABG pCO2 POC ABG pO2 ABG pO2 ABG HCO3 ABG Base Excess ABG Hemoglobin Oxyhemoglobin Sodium Potassium Chloride Carbon Dioxide BUN Creatinine Glucose POC Glucose 115 H 131 H Lactic Acid Calcium Phosphorus Magnesium Direct Bilirubin AST ALT Alkaline Phosphatase Lactate Dehydrogenase Troponin T C-Reactive Protein Total Protein Albumin Prealbumin Triglycerides Cholesterol LDL Cholesterol Direct HDL Cholesterol Urine pH Urine WBC (Auto) Urine Creatinine Urine Total Protein Fluid Total Protein Vancomycin Trough Rheumatoid Factor Complement C4 Miscellaneous Test Crossmatch 12/27/16 12/28/16 12/28/16 17:16 00:18 04:00 WBC RBC Hgb Hct MCV MCH MCHC RDW Plt Count Lymph % (Auto) [place] % (Auto) Lymph # [place] # Baso # Seg Neutrophils % Seg Neuts % (Manual) Lymphocytes % (Manual) Monocytes % (Manual) Eosinophils % (Manual) Basophils % (Manual) Nucleated RBC % Seg Neutrophils # Seg Neutrophils # Man Lymphocytes # (Manual) Monocytes # (Manual) Eosinophils # (Manual) Basophils # (Manual) PT INR Fibrinogen dRVVT Confirm Interp Factor V Activity POC ABG pH POC ABG pCO2 POC ABG pO2 ABG pO2 ABG HCO3 ABG Base Excess ABG Hemoglobin Oxyhemoglobin Sodium Potassium 3.5 L Chloride Carbon Dioxide BUN 57 H Creatinine Glucose 118 H POC Glucose 136 H 120 H Lactic Acid Calcium 8.3 L Phosphorus Magnesium Direct Bilirubin AST ALT Alkaline Phosphatase Lactate Dehydrogenase Troponin T C-Reactive Protein Total Protein Albumin Prealbumin Triglycerides Cholesterol LDL Cholesterol Direct HDL Cholesterol Urine pH Urine WBC (Auto) Urine Creatinine Urine Total Protein Fluid Total Protein Vancomycin Trough Rheumatoid Factor Complement C4 Miscellaneous Test Crossmatch 12/28/16 12/28/16 12/28/16 04:00 05:11 08:30 WBC 17.0 H RBC 2.58 L Hgb 7.1 L Hct 22.0 L MCV MCH MCHC RDW 17.6 H Plt Count Lymph % (Auto) 12.2 L [place] % (Auto) Lymph # [place] # 1.1 H Baso # Seg Neutrophils % 80.5 H Seg Neuts % (Manual) Lymphocytes % (Manual) Monocytes % (Manual) Eosinophils % (Manual) Basophils % (Manual) Nucleated RBC % Seg Neutrophils # 13.7 H Seg Neutrophils # Man Lymphocytes # (Manual) Monocytes # (Manual) Eosinophils # (Manual) Basophils # (Manual) PT 16.1 H INR 1.23 H Fibrinogen dRVVT Confirm Interp Factor V Activity POC ABG pH POC ABG pCO2 POC ABG pO2 ABG pO2 ABG HCO3 ABG Base Excess ABG Hemoglobin Oxyhemoglobin Sodium Potassium Chloride Carbon Dioxide BUN Creatinine Glucose POC Glucose 122 H Lactic Acid Calcium Phosphorus Magnesium Direct Bilirubin AST ALT Alkaline Phosphatase Lactate Dehydrogenase Troponin T C-Reactive Protein Total Protein Albumin Prealbumin Triglycerides Cholesterol LDL Cholesterol Direct HDL Cholesterol Urine pH Urine WBC (Auto) Urine Creatinine Urine Total Protein Fluid Total Protein Vancomycin Trough Rheumatoid Factor Complement C4 Miscellaneous Test Crossmatch 12/28/16 12/28/16 12/28/16 12:27 16:32 23:46 WBC RBC Hgb Hct MCV MCH MCHC RDW Plt Count Lymph % (Auto) [place] % (Auto) Lymph # [place] # Baso # Seg Neutrophils % Seg Neuts % (Manual) Lymphocytes % (Manual) Monocytes % (Manual) Eosinophils % (Manual) Basophils % (Manual) Nucleated RBC % Seg Neutrophils # Seg Neutrophils # Man Lymphocytes # (Manual) Monocytes # (Manual) Eosinophils # (Manual) Basophils # (Manual) PT INR Fibrinogen dRVVT Confirm Interp Factor V Activity POC ABG pH POC ABG pCO2 POC ABG pO2 ABG pO2 ABG HCO3 ABG Base Excess ABG Hemoglobin Oxyhemoglobin Sodium Potassium Chloride Carbon Dioxide BUN Creatinine Glucose POC Glucose 127 H 117 H 108 H Lactic Acid Calcium Phosphorus Magnesium Direct Bilirubin AST ALT Alkaline Phosphatase Lactate Dehydrogenase Troponin T C-Reactive Protein Total Protein Albumin Prealbumin Triglycerides Cholesterol LDL Cholesterol Direct HDL Cholesterol Urine pH Urine WBC (Auto) Urine Creatinine Urine Total Protein Fluid Total Protein Vancomycin Trough Rheumatoid Factor Complement C4 Miscellaneous Test Crossmatch 12/29/16 12/29/16 12/29/16 05:15 05:15 05:32 WBC RBC Hgb Hct MCV MCH MCHC RDW Plt Count Lymph % (Auto) [place] % (Auto) Lymph # [place] # Baso # Seg Neutrophils % Seg Neuts % (Manual) Lymphocytes % (Manual) Monocytes % (Manual) Eosinophils % (Manual) Basophils % (Manual) Nucleated RBC % Seg Neutrophils # Seg Neutrophils # Man Lymphocytes # (Manual) Monocytes # (Manual) Eosinophils # (Manual) Basophils # (Manual) PT INR Fibrinogen dRVVT Confirm Interp Factor V Activity POC ABG pH POC ABG pCO2 POC ABG pO2 ABG pO2 ABG HCO3 ABG Base Excess ABG Hemoglobin Oxyhemoglobin Sodium Potassium Chloride Carbon Dioxide BUN 74 H Creatinine 1.6 H Glucose 111 H POC Glucose 123 H Lactic Acid Calcium Phosphorus Magnesium Direct Bilirubin AST ALT Alkaline Phosphatase Lactate Dehydrogenase Troponin T C-Reactive Protein Total Protein Albumin Prealbumin 0.110 L Triglycerides Cholesterol LDL Cholesterol Direct HDL Cholesterol Urine pH Urine WBC (Auto) Urine Creatinine Urine Total Protein Fluid Total Protein Vancomycin Trough Rheumatoid Factor Complement C4 Miscellaneous Test Crossmatch 12/29/16 12/29/16 12/29/16 11:43 13:45 14:00 WBC 13.8 H RBC 2.26 L Hgb 6.3 L Hct 20.4 L MCV MCH MCHC RDW 18.3 H Plt Count Lymph % (Auto) [place] % (Auto) Lymph # [place] # 0.9 H Baso # Seg Neutrophils % 78.6 H Seg Neuts % (Manual) Lymphocytes % (Manual) Monocytes % (Manual) Eosinophils % (Manual) Basophils % (Manual) Nucleated RBC % Seg Neutrophils # 10.8 H Seg Neutrophils # Man Lymphocytes # (Manual) Monocytes # (Manual) Eosinophils # (Manual) Basophils # (Manual) PT INR Fibrinogen dRVVT Confirm Interp Factor V Activity POC ABG pH POC ABG pCO2 POC ABG pO2 ABG pO2 ABG HCO3 ABG Base Excess ABG Hemoglobin Oxyhemoglobin Sodium Potassium Chloride Carbon Dioxide BUN Creatinine Glucose POC Glucose 133 H Lactic Acid Calcium Phosphorus Magnesium Direct Bilirubin AST ALT Alkaline Phosphatase Lactate Dehydrogenase Troponin T C-Reactive Protein Total Protein Albumin Prealbumin Triglycerides Cholesterol LDL Cholesterol Direct HDL Cholesterol Urine pH Urine WBC (Auto) Urine Creatinine Urine Total Protein Fluid Total Protein Vancomycin Trough Rheumatoid Factor Complement C4 Miscellaneous Test Crossmatch See Detail 12/29/16 12/29/16 12/29/16 17:03 23:15 23:22 WBC RBC Hgb 7.3 L Hct 22.3 L MCV MCH MCHC RDW Plt Count Lymph % (Auto) [place] % (Auto) Lymph # [place] # Baso # Seg Neutrophils % Seg Neuts % (Manual) Lymphocytes % (Manual) Monocytes % (Manual) Eosinophils % (Manual) Basophils % (Manual) Nucleated RBC % Seg Neutrophils # Seg Neutrophils # Man Lymphocytes # (Manual) Monocytes # (Manual) Eosinophils # (Manual) Basophils # (Manual) PT INR Fibrinogen dRVVT Confirm Interp Factor V Activity POC ABG pH POC ABG pCO2 POC ABG pO2 ABG pO2 ABG HCO3 ABG Base Excess ABG Hemoglobin Oxyhemoglobin Sodium Potassium Chloride Carbon Dioxide BUN Creatinine Glucose POC Glucose 139 H 120 H Lactic Acid Calcium Phosphorus Magnesium Direct Bilirubin AST ALT Alkaline Phosphatase Lactate Dehydrogenase Troponin T C-Reactive Protein Total Protein Albumin Prealbumin Triglycerides Cholesterol LDL Cholesterol Direct HDL Cholesterol Urine pH Urine WBC (Auto) Urine Creatinine Urine Total Protein Fluid Total Protein Vancomycin Trough Rheumatoid Factor Complement C4 Miscellaneous Test Crossmatch 12/30/16 12/30/16 12/30/16 04:20 04:20 05:43 WBC 15.6 H RBC 2.81 L Hgb 8.0 L Hct 24.0 L MCV MCH MCHC RDW 16.9 H Plt Count Lymph % (Auto) [place] % (Auto) Lymph # [place] # 1.0 H Baso # Seg Neutrophils % 76.2 H Seg Neuts % (Manual) Lymphocytes % (Manual) Monocytes % (Manual) Eosinophils % (Manual) Basophils % (Manual) Nucleated RBC % Seg Neutrophils # 11.9 H Seg Neutrophils # Man Lymphocytes # (Manual) Monocytes # (Manual) Eosinophils # (Manual) Basophils # (Manual) PT INR Fibrinogen dRVVT Confirm Interp Factor V Activity POC ABG pH POC ABG pCO2 POC ABG pO2 ABG pO2 ABG HCO3 ABG Base Excess ABG Hemoglobin Oxyhemoglobin Sodium Potassium Chloride Carbon Dioxide BUN 87 H Creatinine 1.8 H Glucose 119 H POC Glucose 115 H Lactic Acid Calcium Phosphorus Magnesium Direct Bilirubin AST ALT Alkaline Phosphatase Lactate Dehydrogenase Troponin T C-Reactive Protein Total Protein Albumin Prealbumin Triglycerides Cholesterol LDL Cholesterol Direct HDL Cholesterol Urine pH Urine WBC (Auto) Urine Creatinine Urine Total Protein Fluid Total Protein Vancomycin Trough Rheumatoid Factor Complement C4 Miscellaneous Test Crossmatch 12/30/16 12/30/16 12/31/16 17:27 23:21 04:00 WBC RBC Hgb Hct MCV MCH MCHC RDW Plt Count Lymph % (Auto) [place] % (Auto) Lymph # [place] # Baso # Seg Neutrophils % Seg Neuts % (Manual) Lymphocytes % (Manual) Monocytes % (Manual) Eosinophils % (Manual) Basophils % (Manual) Nucleated RBC % Seg Neutrophils # Seg Neutrophils # Man Lymphocytes # (Manual) Monocytes # (Manual) Eosinophils # (Manual) Basophils # (Manual) PT INR Fibrinogen dRVVT Confirm Interp Factor V Activity POC ABG pH POC ABG pCO2 POC ABG pO2 ABG pO2 ABG HCO3 ABG Base Excess ABG Hemoglobin Oxyhemoglobin Sodium Potassium Chloride Carbon Dioxide BUN 59 H Creatinine Glucose 298 H POC Glucose 144 H 125 H Lactic Acid Calcium Phosphorus Magnesium Direct Bilirubin AST ALT Alkaline Phosphatase Lactate Dehydrogenase Troponin T C-Reactive Protein Total Protein Albumin Prealbumin Triglycerides Cholesterol LDL Cholesterol Direct HDL Cholesterol Urine pH Urine WBC (Auto) Urine Creatinine Urine Total Protein Fluid Total Protein Vancomycin Trough Rheumatoid Factor Complement C4 Miscellaneous Test Crossmatch 12/31/16 12/31/16 12/31/16 05:11 12:18 18:17 WBC RBC Hgb Hct MCV MCH MCHC RDW Plt Count Lymph % (Auto) [place] % (Auto) Lymph # [place] # Baso # Seg Neutrophils % Seg Neuts % (Manual) Lymphocytes % (Manual) Monocytes % (Manual) Eosinophils % (Manual) Basophils % (Manual) Nucleated RBC % Seg Neutrophils # Seg Neutrophils # Man Lymphocytes # (Manual) Monocytes # (Manual) Eosinophils # (Manual) Basophils # (Manual) PT INR Fibrinogen dRVVT Confirm Interp Factor V Activity POC ABG pH POC ABG pCO2 POC ABG pO2 ABG pO2 ABG HCO3 ABG Base Excess ABG Hemoglobin Oxyhemoglobin Sodium Potassium Chloride Carbon Dioxide BUN Creatinine Glucose POC Glucose 167 H 125 H 133 H Lactic Acid Calcium Phosphorus Magnesium Direct Bilirubin AST ALT Alkaline Phosphatase Lactate Dehydrogenase Troponin T C-Reactive Protein Total Protein Albumin Prealbumin Triglycerides Cholesterol LDL Cholesterol Direct HDL Cholesterol Urine pH Urine WBC (Auto) Urine Creatinine Urine Total Protein Fluid Total Protein Vancomycin Trough Rheumatoid Factor Complement C4 Miscellaneous Test Crossmatch 12/31/16 01/01/17 01/01/17 23:55 05:00 05:12 WBC RBC Hgb Hct MCV MCH MCHC RDW Plt Count Lymph % (Auto) [place] % (Auto) Lymph # [place] # Baso # Seg Neutrophils % Seg Neuts % (Manual) Lymphocytes % (Manual) Monocytes % (Manual) Eosinophils % (Manual) Basophils % (Manual) Nucleated RBC % Seg Neutrophils # Seg Neutrophils # Man Lymphocytes # (Manual) Monocytes # (Manual) Eosinophils # (Manual) Basophils # (Manual) PT INR Fibrinogen dRVVT Confirm Interp Factor V Activity POC ABG pH POC ABG pCO2 POC ABG pO2 ABG pO2 ABG HCO3 ABG Base Excess ABG Hemoglobin Oxyhemoglobin Sodium Potassium Chloride Carbon Dioxide BUN 76 H Creatinine 1.5 H Glucose 109 H POC Glucose 129 H 129 H Lactic Acid Calcium Phosphorus Magnesium Direct Bilirubin AST ALT Alkaline Phosphatase 536 H Lactate Dehydrogenase Troponin T C-Reactive Protein Total Protein Albumin 1.5 L Prealbumin Triglycerides Cholesterol LDL Cholesterol Direct HDL Cholesterol Urine pH Urine WBC (Auto) Urine Creatinine Urine Total Protein Fluid Total Protein Vancomycin Trough Rheumatoid Factor Complement C4 Miscellaneous Test Crossmatch 01/01/17 01/01/17 01/01/17 12:25 17:01 23:32 WBC RBC Hgb Hct MCV MCH MCHC RDW Plt Count Lymph % (Auto) [place] % (Auto) Lymph # [place] # Baso # Seg Neutrophils % Seg Neuts % (Manual) Lymphocytes % (Manual) Monocytes % (Manual) Eosinophils % (Manual) Basophils % (Manual) Nucleated RBC % Seg Neutrophils # Seg Neutrophils # Man Lymphocytes # (Manual) Monocytes # (Manual) Eosinophils # (Manual) Basophils # (Manual) PT INR Fibrinogen dRVVT Confirm Interp Factor V Activity POC ABG pH POC ABG pCO2 POC ABG pO2 ABG pO2 ABG HCO3 ABG Base Excess ABG Hemoglobin Oxyhemoglobin Sodium Potassium Chloride Carbon Dioxide BUN Creatinine Glucose POC Glucose 140 H 142 H 112 H Lactic Acid Calcium Phosphorus Magnesium Direct Bilirubin AST ALT Alkaline Phosphatase Lactate Dehydrogenase Troponin T C-Reactive Protein Total Protein Albumin Prealbumin Triglycerides Cholesterol LDL Cholesterol Direct HDL Cholesterol Urine pH Urine WBC (Auto) Urine Creatinine Urine Total Protein Fluid Total Protein Vancomycin Trough Rheumatoid Factor Complement C4 Miscellaneous Test Crossmatch 01/02/17 01/02/17 01/02/17 04:56 06:00 11:37 WBC RBC Hgb Hct MCV MCH MCHC RDW Plt Count Lymph % (Auto) [place] % (Auto) Lymph # [place] # Baso # Seg Neutrophils % Seg Neuts % (Manual) Lymphocytes % (Manual) Monocytes % (Manual) Eosinophils % (Manual) Basophils % (Manual) Nucleated RBC % Seg Neutrophils # Seg Neutrophils # Man Lymphocytes # (Manual) Monocytes # (Manual) Eosinophils # (Manual) Basophils # (Manual) PT INR Fibrinogen dRVVT Confirm Interp Factor V Activity POC ABG pH POC ABG pCO2 POC ABG pO2 ABG pO2 ABG HCO3 ABG Base Excess ABG Hemoglobin Oxyhemoglobin Sodium Potassium Chloride Carbon Dioxide BUN 88 H Creatinine 1.7 H Glucose 113 H POC Glucose 136 H 200 H Lactic Acid Calcium Phosphorus Magnesium Direct Bilirubin AST ALT Alkaline Phosphatase Lactate Dehydrogenase Troponin T C-Reactive Protein Total Protein Albumin Prealbumin Triglycerides Cholesterol LDL Cholesterol Direct HDL Cholesterol Urine pH Urine WBC (Auto) Urine Creatinine Urine Total Protein Fluid Total Protein Vancomycin Trough Rheumatoid Factor Complement C4 Miscellaneous Test Crossmatch Chest x-ray: image reviewed (increasing bilateral pleural effusions) Allied health notes reviewed: RT
[2017-01-02] MEDS ORDERED: NACL 0.9% 1000 ML 2,000 ML ONE (12:12)
--- NOTE | 2017-01-02 13:20 | Progress Note ---
Assessment and Plan - Patient Problems (1) JUANITA (acute kidney injury) Current Visit: Yes Status: Acute Plan to address problem: Multiple comorbid conditions-Suggest supportive care .Monitor urine output. Pt was reported to have decubitus ulcer-had surgical debridement. Encephalopathy- same. Discussed with hospitalist- and pulmonary-Dr. Lara. [id number], Scr-1.7 HD as ordered for today. (2) Acute CVA (cerebrovascular accident) Current Visit: Yes Status: Acute (3) Acute respiratory failure with hypoxia Current Visit: Yes Status: Acute (4) Atrial fibrillation Current Visit: Yes Status: Chronic Qualifiers: Atrial fibrillation type: A (5) Type 2 diabetes mellitus Current Visit: Yes Status: Chronic Qualifiers: Diabetes mellitus complication status: D Diabetes mellitus complication detail: D Diabetic retinopathy severity: D Proliferative retinopathy type: P Diabetes mellitus macular edema: D Diabetes mellitus fdc insulin use : D Laterality: L Chronic kidney disease stage: C (6) Anemia Current Visit: No Status: Acute Qualifiers: Anemia type: unspecified type Iron deficiency anemia type: I Vitamin B12 deficiency anemia type: V Folate deficiency anemia type: F Bone marrow failure anemia type: B Hemolytic anemia type: H Other causes of anemia: O Chronic kidney disease stage: C Qualified Code(s): D64.9 - Anemia, unspecified (7) HTN (hypertension) Current Visit: Yes Status: Chronic Qualifiers: Hypertension type: H (8) Diabetes Current Visit: Yes Status: Acute Qualifiers: Diabetes mellitus type: type 1 Diabetes mellitus complication status: with hyperglycemia Diabetes mellitus complication detail: D Diabetic retinopathy severity: D Proliferative retinopathy type: P Diabetes mellitus macular edema: D 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 on ventilator via trach. Fio2-30% . Pt remains non communicative Objective - Vital Signs Vital signs: Vital Signs - 12hr 01/02/17 01/02/17 01/02/17 01:30 01:45 02:00 Temperature Pulse Rate 94 H 95 H 98 H Pulse Rate [ Anterior Bilateral Throughout] Pulse Rate [ From Monitor] Pulse Rate [ Left Dorsalis Pedis] Pulse Rate [ Left Radial] Pulse Rate [ Right Dorsalis Pedis] Pulse Rate [ Right Radial] Respiratory 18 20 13 Rate Respiratory Rate [Anterior Bilateral Throughout] Blood Pressure 114/68 115/67 103/64 O2 Sat by Pulse 100 100 100 Oximetry O2 Sat by Pulse Oximetry [ Assessment] 01/02/17 01/02/17 01/02/17 02:15 02:30 02:45 Temperature Pulse Rate 98 H 103 H 102 H Pulse Rate [ Anterior Bilateral Throughout] Pulse Rate [ From Monitor] Pulse Rate [ Left Dorsalis Pedis] Pulse Rate [ Left Radial] Pulse Rate [ Right Dorsalis Pedis] Pulse Rate [ Right Radial] Respiratory 24 29 H 29 H Rate Respiratory Rate [Anterior Bilateral Throughout] Blood Pressure 118/70 124/76 121/79 O2 Sat by Pulse 100 97 97 Oximetry O2 Sat by Pulse Oximetry [ Assessment] 01/02/17 01/02/17 01/02/17 03:00 03:03 03:15 Temperature Pulse Rate 104 H 102 H Pulse Rate [ Anterior Bilateral Throughout] Pulse Rate [ 102 H From Monitor] Pulse Rate [ 102 H Left Dorsalis Pedis] Pulse Rate [ 102 H Left Radial] Pulse Rate [ 102 H Right Dorsalis Pedis] Pulse Rate [ 102 H Right Radial] Respiratory 29 H 21 29 H Rate Respiratory Rate [Anterior Bilateral Throughout] Blood Pressure 127/84 135/82 O2 Sat by Pulse 98 99 98 Oximetry O2 Sat by Pulse Oximetry [ Assessment] 01/02/17 01/02/17 01/02/17 03:30 03:45 04:00 Temperature 98.5 F Pulse Rate 101 H 100 H 99 H Pulse Rate [ Anterior Bilateral Throughout] Pulse Rate [ From Monitor] Pulse Rate [ Left Dorsalis Pedis] Pulse Rate [ Left Radial] Pulse Rate [ Right Dorsalis Pedis] Pulse Rate [ Right Radial] Respiratory 28 H 20 21 Rate Respiratory Rate [Anterior Bilateral Throughout] Blood Pressure 124/76 128/80 121/73 O2 Sat by Pulse 98 99 99 Oximetry O2 Sat by Pulse Oximetry [ Assessment] 01/02/17 01/02/17 01/02/17 04:15 04:25 04:30 Temperature Pulse Rate 99 H 101 H 103 H Pulse Rate [ Anterior Bilateral Throughout] Pulse Rate [ From Monitor] Pulse Rate [ Left Dorsalis Pedis] Pulse Rate [ Left Radial] Pulse Rate [ Right Dorsalis Pedis] Pulse Rate [ Right Radial] Respiratory 21 20 Rate Respiratory Rate [Anterior Bilateral Throughout] Blood Pressure 123/77 132/76 136/86 O2 Sat by Pulse 99 100 99 Oximetry O2 Sat by Pulse Oximetry [ Assessment] 01/02/17 01/02/17 01/02/17 04:45 05:00 05:15 Temperature Pulse Rate 103 H 103 H 104 H Pulse Rate [ Anterior Bilateral Throughout] Pulse Rate [ From Monitor] Pulse Rate [ Left Dorsalis Pedis] Pulse Rate [ Left Radial] Pulse Rate [ Right Dorsalis Pedis] Pulse Rate [ Right Radial] Respiratory 23 21 26 H Rate Respiratory Rate [Anterior Bilateral Throughout] Blood Pressure 137/89 132/77 136/86 O2 Sat by Pulse 99 99 97 Oximetry O2 Sat by Pulse Oximetry [ Assessment] 01/02/17 01/02/17 01/02/17 05:30 05:45 05:51 Temperature Pulse Rate 107 H 103 H 108 H Pulse Rate [ Anterior Bilateral Throughout] Pulse Rate [ From Monitor] Pulse Rate [ Left Dorsalis Pedis] Pulse Rate [ Left Radial] Pulse Rate [ Right Dorsalis Pedis] Pulse Rate [ Right Radial] Respiratory 18 21 Rate Respiratory Rate [Anterior Bilateral Throughout] Blood Pressure 142/85 132/78 132/78 O2 Sat by Pulse 99 99 Oximetry O2 Sat by Pulse Oximetry [ Assessment] 01/02/17 01/02/17 01/02/17 06:00 06:15 06:30 Temperature Pulse Rate 97 H 91 H 91 H Pulse Rate [ Anterior Bilateral Throughout] Pulse Rate [ From Monitor] Pulse Rate [ Left Dorsalis Pedis] Pulse Rate [ Left Radial] Pulse Rate [ Right Dorsalis Pedis] Pulse Rate [ Right Radial] Respiratory 19 18 21 Rate Respiratory Rate [Anterior Bilateral Throughout] Blood Pressure 118/74 119/73 125/81 O2 Sat by Pulse 99 99 99 Oximetry O2 Sat by Pulse Oximetry [ Assessment] 01/02/17 01/02/17 01/02/17 06:45 07:00 07:15 Temperature Pulse Rate 90 91 H 91 H Pulse Rate [ Anterior Bilateral Throughout] Pulse Rate [ From Monitor] Pulse Rate [ Left Dorsalis Pedis] Pulse Rate [ Left Radial] Pulse Rate [ Right Dorsalis Pedis] Pulse Rate [ Right Radial] Respiratory 22 21 22 Rate Respiratory Rate [Anterior Bilateral Throughout] Blood Pressure 116/74 119/75 124/80 O2 Sat by Pulse 99 99 99 Oximetry O2 Sat by Pulse Oximetry [ Assessment] 01/02/17 01/02/17 01/02/17 07:30 07:45 07:53 Temperature 98.7 F Pulse Rate 96 H 95 H Pulse Rate [ Anterior Bilateral Throughout] Pulse Rate [ From Monitor] Pulse Rate [ Left Dorsalis Pedis] Pulse Rate [ Left Radial] Pulse Rate [ Right Dorsalis Pedis] Pulse Rate [ Right Radial] Respiratory 17 19 Rate Respiratory Rate [Anterior Bilateral Throughout] Blood Pressure 134/86 134/86 O2 Sat by Pulse 98 99 Oximetry O2 Sat by Pulse Oximetry [ Assessment] 01/02/17 01/02/17 01/02/17 08:00 08:15 08:30 Temperature Pulse Rate 94 H 93 H 93 H Pulse Rate [ Anterior Bilateral Throughout] Pulse Rate [ From Monitor] Pulse Rate [ Left Dorsalis Pedis] Pulse Rate [ Left Radial] Pulse Rate [ Right Dorsalis Pedis] Pulse Rate [ Right Radial] Respiratory 17 9 L 16 Rate Respiratory Rate [Anterior Bilateral Throughout] Blood Pressure 129/76 129/76 133/78 O2 Sat by Pulse 99 99 99 Oximetry O2 Sat by Pulse Oximetry [ Assessment] 01/02/17 01/02/17 01/02/17 08:33 08:45 08:57 Temperature Pulse Rate 93 H 91 H 98 H Pulse Rate [ 96 H 97 H Anterior Bilateral Throughout] Pulse Rate [ From Monitor] Pulse Rate [ Left Dorsalis Pedis] Pulse Rate [ Left Radial] Pulse Rate [ Right Dorsalis Pedis] Pulse Rate [ Right Radial] Respiratory 15 35 H Rate Respiratory 19 20 Rate [Anterior Bilateral Throughout] Blood Pressure 133/78 133/78 143/85 O2 Sat by Pulse 99 100 98 Oximetry O2 Sat by Pulse 98 Oximetry [ Assessment] 01/02/17 01/02/17 01/02/17 09:00 09:15 09:23 Temperature Pulse Rate 100 H 98 H 100 H Pulse Rate [ Anterior Bilateral Throughout] Pulse Rate [ From Monitor] Pulse Rate [ Left Dorsalis Pedis] Pulse Rate [ Left Radial] Pulse Rate [ Right Dorsalis Pedis] Pulse Rate [ Right Radial] Respiratory 29 H 21 Rate Respiratory Rate [Anterior Bilateral Throughout] Blood Pressure 143/85 143/85 143/85 O2 Sat by Pulse 98 98 Oximetry O2 Sat by Pulse Oximetry [ Assessment] 01/02/17 01/02/17 01/02/17 09:30 09:45 10:00 Temperature Pulse Rate 98 H 106 H 102 H Pulse Rate [ Anterior Bilateral Throughout] Pulse Rate [ From Monitor] Pulse Rate [ Left Dorsalis Pedis] Pulse Rate [ Left Radial] Pulse Rate [ Right Dorsalis Pedis] Pulse Rate [ Right Radial] Respiratory 10 L 22 46 H Rate Respiratory Rate [Anterior Bilateral Throughout] Blood Pressure 136/80 136/80 147/87 O2 Sat by Pulse 98 97 Oximetry O2 Sat by Pulse Oximetry [ Assessment] 01/02/17 01/02/17 01/02/17 10:04 10:10 10:15 Temperature 98.9 F Pulse Rate 103 H 103 H 102 H Pulse Rate [ Anterior Bilateral Throughout] Pulse Rate [ From Monitor] Pulse Rate [ Left Dorsalis Pedis] Pulse Rate [ Left Radial] Pulse Rate [ Right Dorsalis Pedis] Pulse Rate [ Right Radial] Respiratory 23 25 H Rate Respiratory Rate [Anterior Bilateral Throughout] Blood Pressure 144/87 147/87 137/80 O2 Sat by Pulse 97 97 Oximetry O2 Sat by Pulse Oximetry [ Assessment] 01/02/17 01/02/17 01/02/17 10:23 10:30 10:45 Temperature Pulse Rate 101 H 102 H 101 H Pulse Rate [ Anterior Bilateral Throughout] Pulse Rate [ From Monitor] Pulse Rate [ Left Dorsalis Pedis] Pulse Rate [ Left Radial] Pulse Rate [ Right Dorsalis Pedis] Pulse Rate [ Right Radial] Respiratory 26 H 24 Rate Respiratory Rate [Anterior Bilateral Throughout] Blood Pressure 137/80 127/78 105/64 O2 Sat by Pulse 97 97 Oximetry O2 Sat by Pulse Oximetry [ Assessment] 01/02/17 01/02/17 01/02/17 11:00 11:01 11:15 Temperature Pulse Rate 103 H 103 H 101 H Pulse Rate [ Anterior Bilateral Throughout] Pulse Rate [ From Monitor] Pulse Rate [ Left Dorsalis Pedis] Pulse Rate [ Left Radial] Pulse Rate [ Right Dorsalis Pedis] Pulse Rate [ Right Radial] Respiratory 17 24 Rate Respiratory Rate [Anterior Bilateral Throughout] Blood Pressure 105/68 105/68 101/63 O2 Sat by Pulse 98 98 Oximetry O2 Sat by Pulse Oximetry [ Assessment] 01/02/17 01/02/17 01/02/17 11:30 11:45 12:00 Temperature 98.9 F Pulse Rate 106 H 103 H 103 H Pulse Rate [ Anterior Bilateral Throughout] Pulse Rate [ From Monitor] Pulse Rate [ Left Dorsalis Pedis] Pulse Rate [ Left Radial] Pulse Rate [ Right Dorsalis Pedis] Pulse Rate [ Right Radial] Respiratory 24 23 23 Rate Respiratory Rate [Anterior Bilateral Throughout] Blood Pressure 122/81 102/64 106/61 O2 Sat by Pulse 97 98 98 Oximetry O2 Sat by Pulse Oximetry [ Assessment] 01/02/17 01/02/17 01/02/17 12:07 12:15 12:30 Temperature Pulse Rate 102 H 103 H 104 H Pulse Rate [ Anterior Bilateral Throughout] Pulse Rate [ From Monitor] Pulse Rate [ Left Dorsalis Pedis] Pulse Rate [ Left Radial] Pulse Rate [ Right Dorsalis Pedis] Pulse Rate [ Right Radial] Respiratory 22 Rate Respiratory Rate [Anterior Bilateral Throughout] Blood Pressure 106/61 100/55 109/64 O2 Sat by Pulse 99 99 Oximetry O2 Sat by Pulse Oximetry [ Assessment] - General Appearance General appearance: chronically ill, other (on ventilator via trach) EENT: mucous membranes dry Neck: no JVD Respiratory: Present: Decreased Breath Sounds Cardiology: regular Gastrointestinal: normoactive bowel sounds Musculoskeletal: other (1+edema) - Lab 12/30/16 04:20 01/02/17 06:00 Most recent lab results ABG pH 7.450 pH Units (7.350-7.450) 12/05/16 Unknown ABG pCO2 29.6 mm Hg 12/05/16 Unknown ABG pO2 75.2 mm Hg (80.0-90.0) L 12/05/16 Unknown ABG HCO3 20.1 mmol/L (20.0-26.0) 12/05/16 Unknown ABG O2 Saturation 96.8 % (95.0-99.0) 12/05/16 Unknown Calcium 9.5 mg/dL (8.4-10.2) 01/02/17 06:00 Phosphorus 3.10 mg/dL (2.5-4.5) 01/02/17 06:00 Magnesium 2.20 mg/dL (1.7-2.3) 01/02/17 06:00 Urine Creatinine 19.7 mg/dL (0.1-20.0) 11/12/16 10:18 Urine Sodium 36 mEq/L 09/16/16 19:19 Urine Total Protein 16 mg/dL (5-11.8) H 09/16/16 19:19
[2017-01-02] MEDS: HEPARIN IV PRN (13:29)
--- NOTE | 2017-01-02 13:44 | Progress Note ---
Assessment and Plan Assessment and plan: Patient is 46-year-old woman with a history of hypertension, diabetes, asthma, hyperlipidemia, chronic kidney disease and anxiety , who was brought in by family because, she couldn't get her words out, her face was also twisted, she was admitted for acute CVA and accelerated hypertension, she had a hx of poor adherence with her medications, and uncontrolled htn. Patient's SBP on admission was noted be greater than 260. TPA was started but this was discontinued after 5 minutes because her blood pressure became uncontrolled. The TPA was not initiated again because the patient was outside the TPA window. Status post cardiac arrest , 11/21/16 - Received CPR and was resuscitated. - Patient is on amiodarone. Fever - resolved - Antibiotic discontinued today per ID - s/p R thoracentesis on 11/14, 240cc of serous fluid removed, cx of fluid was negative - Stool negative for C. difficile Severe Sepsis with septic shock - Patient has episode of fever and leukocytosis Surgical wound infection/gram-negative sepsis/candidemia/peritonitis - On TPN JUANITA, ESRD - discussed with Dr Wadsworth - Cr 1.7 today Acute CVA with infarct - Neurology input appreciated - CT shows continued evolution of left MCA infarct with slight mass effect and edema, and there is no hemorrhage - PRINCE showed hyperdynamic with ef of 75%, neither clot nor septal defect seen - MRA Brain shows near complete occlusion of M2 and M3 of the left MCA - Repeat CT scan done on 09/11, shows stable findings - carotid doppler negative - Echo shows preserved systolic function but does show some left ventricular diastolic dysfunction - continue asa and statin Persistent vegetative state - This patient's needs placement at SNF - She was denied for LTACH Acute hypoxic respiratory failure requiring MV >96hrs - Status post tracheostomy, was on T piece Nosocomial acquired aspiration pneumonia/sepsis/UTI - Finished a course of antibiotics Asthma/COPD exacerbation - ON trach, mechanical ventilation Status Post CVA Bilateral pleural effusion, s/p right thoracentesis A. fib with RVR Diabetes type 2. Continue sliding-scale regular insulin and Accu-Cheks. Hyperlipidemia. Continue statin Nutrition - TPN Anemia requiring multiple transfusions/acute blood loss - currently stable - Will transfuse if it is below 7 Sacral decubitus ulcer - Status post debridement Disposition. Very poor prognosis. The high probability of a clinically significant, sudden or life threatening deterioration of the [neurologic, CV] system(s) required my full and direct attention, intervention and personal management. The aggregate critical care time was [34] minutes. This time is in addition to time spent performing reported procedures but includes the following: [x] Data Review and interpretation [x] Patient assessment and monitoring of vital signs [x] Documentation [x] Medication orders and management History Interval history: Patient was seen and evaluated this morning, patient is in persistent vegetative state. Status post trach, fistulas on the skin around the stomach area. Sacral decubitus ulcer s/p debridement. Hospitalist Physical - Physical exam Narrative exam: Patient is on mechanical ventilation, on trach. Vital signs as documented. Head exam is unremarkable. No scleral icterus . Neck is without jugular venous distension, thyromegaly, or carotid bruits. Lungs are clear to auscultation. Cardiac exam reveals regular rate and Rhythm. First and second heart sounds normal. No murmurs, rubs or gallops. Abdominal exam reveals abscess draining from the PEG site, and multiple fistulas around the stomach. Extremities are nonedematous and both femoral and pedal pulses are normal. Sacral decubitus ulcer. SENIOR RESEARCH MANAGER: comatose - Constitutional Vitals: Temp Pulse Resp BP Pulse Ox 98.8 F 102 H 20 104/62 99 01/02/17 13:00 01/02/17 13:29 01/02/17 13:29 01/02/17 13:00 01/02/17 12:15 General appearance: Present: no acute distress, well-nourished, obese Results - Labs CBC & Chem 7: 12/30/16 04:20 01/02/17 06:00 Labs: Laboratory Last Values WBC 15.6 K/mm3 (4.5-11.0) H 12/30/16 04:20 RBC 2.81 M/mm3 (3.65-5.03) L 12/30/16 04:20 Hgb 8.0 gm/dl (10.1-14.3) L 12/30/16 04:20 Hct 24.0 % (30.3-42.9) L 12/30/16 04:20 MCV 86 fl (79-97) 12/30/16 04:20 MCH 29 pg (28-32) 12/30/16 04:20 MCHC 33 % (30-34) 12/30/16 04:20 RDW 16.9 % (13.2-15.2) H 12/30/16 04:20 Plt Count 319 K/mm3 (140-440) 12/30/16 04:20 Lymph % (Auto) 15.9 % (13.4-35.0) 12/30/16 04:20 Mower % (Auto) 6.7 % (0.0-7.3) 12/30/16 04:20 Eos % (Auto) 0.5 % (0.0-4.3) 12/30/16 04:20 Baso % (Auto) 0.7 % (0.0-1.8) 12/30/16 04:20 Lymph # 2.5 K/mm3 (1.2-5.4) 12/30/16 04:20 Mower # 1.0 K/mm3 (0.0-0.8) H 12/30/16 04:20 Eos # 0.1 K/mm3 (0.0-0.4) 12/30/16 04:20 Baso # 0.1 K/mm3 (0.0-0.1) 12/30/16 04:20 Add Manual Diff Complete 12/19/16 05:02 Total Counted 100 12/19/16 05:02 Seg Neutrophils % 76.2 % (40.0-70.0) H 12/30/16 04:20 Seg Neuts % (Manual) 64.0 % (40.0-70.0) 12/19/16 05:02 Band Neutrophils % 15.0 % 12/19/16 05:02 Lymphocytes % (Manual) 13.0 % (13.4-35.0) L 12/19/16 05:02 Reactive Lymphs % (Man) 0 % 12/19/16 05:02 Monocytes % (Manual) 7.0 % (0.0-7.3) 12/19/16 05:02 Eosinophils % (Manual) 0 % (0.0-4.3) 12/19/16 05:02 Basophils % (Manual) 1.0 % (0.0-1.8) 12/19/16 05:02 Metamyelocytes % 0 % 12/19/16 05:02 Myelocytes % 0 % 12/19/16 05:02 Promyelocytes % 0 % 12/19/16 05:02 Blast Cells % 0 % 12/19/16 05:02 Nucleated RBC % 1.0 % (0.0-0.9) H 12/19/16 05:02 Seg Neutrophils # 11.9 K/mm3 (1.8-7.7) H 12/30/16 04:20 Seg Neutrophils # Man 12.9 K/mm3 (1.8-7.7) H 12/19/16 05:02 Band Neutrophils # 3.0 K/mm3 12/19/16 05:02 Lymphocytes # (Manual) 2.6 K/mm3 (1.2-5.4) 12/19/16 05:02 Abs React Lymphs (Man) 0.0 K/mm3 12/19/16 05:02 Monocytes # (Manual) 1.4 K/mm3 (0.0-0.8) H 12/19/16 05:02 Eosinophils # (Manual) 0.0 K/mm3 (0.0-0.4) 12/19/16 05:02 Basophils # (Manual) 0.2 K/mm3 (0.0-0.1) H 12/19/16 05:02 Metamyelocytes # 0.0 K/mm3 12/19/16 05:02 Myelocytes # 0.0 K/mm3 12/19/16 05:02 Promyelocytes # 0.0 K/mm3 12/19/16 05:02 Blast Cells # 0.0 K/mm3 12/19/16 05:02 Pathologist Review 09/13/16 04:00 WBC Morphology Not Reportable 12/19/16 05:02 Hypersegmented Neuts Not Reportable 12/19/16 05:02 Hyposegmented Neuts Not Reportable 12/19/16 05:02 Hypogranular Neuts Not Reportable 12/19/16 05:02 Smudge Cells Not Reportable 12/19/16 05:02 Toxic Granulation Not Reportable 12/19/16 05:02 Toxic Vacuolation Not Reportable 12/19/16 05:02 Dohle Bodies Not Reportable 12/19/16 05:02 Pelger-Huet Anomaly Not Reportable 12/19/16 05:02 Jasmina Rods Not Reportable 12/19/16 05:02 Platelet Estimate Consistent w auto 12/19/16 05:02 Clumped Platelets Not Reportable 12/19/16 05:02 Plt Clumps, EDTA Not Reportable 12/19/16 05:02 Large Platelets Not Reportable 12/19/16 05:02 Giant Platelets Not Reportable 12/19/16 05:02 Platelet Satelliting Not Reportable 12/19/16 05:02 Plt Morphology Comment Not Reportable 12/19/16 05:02 RBC Morphology Not Reportable 12/19/16 05:02 Dimorphic RBCs Not Reportable 12/19/16 05:02 Polychromasia Not Reportable 12/19/16 05:02 Hypochromasia Not Reportable 12/19/16 05:02 Poikilocytosis Not Reportable 12/19/16 05:02 Anisocytosis Not Reportable 12/19/16 05:02 Microcytosis Not Reportable 12/19/16 05:02 Macrocytosis Not Reportable 12/19/16 05:02 Spherocytes Not Reportable 12/19/16 05:02 Pappenheimer Bodies Not Reportable 12/19/16 05:02 Sickle Cells Not Reportable 12/19/16 05:02 Target Cells Few 12/19/16 05:02 Tear Drop Cells Not Reportable 12/19/16 05:02 Ovalocytes Not Reportable 12/19/16 05:02 Stomatocytes Rare 12/03/16 04:00 Helmet Cells Not Reportable 12/19/16 05:02 [place] Bodies Not Reportable 12/19/16 05:02 [place] Rings Not Reportable 12/19/16 05:02 [place] Cells Not Reportable 12/19/16 05:02 Bite Cells Not Reportable 12/19/16 05:02 Crenated Cell Not Reportable 12/19/16 05:02 Elliptocytes Not Reportable 12/19/16 05:02 Acanthocytes (Spur) Not Reportable 12/19/16 05:02 Rouleaux Not Reportable 12/19/16 05:02 Hemoglobin C Crystals Not Reportable 12/19/16 05:02 Schistocytes Not Reportable 12/19/16 05:02 Malaria parasites Not Reportable 12/19/16 05:02 ESR > 140.0 mm/Hr (0-20) 09/08/16 11:48 Jun Bodies Not Reportable 12/19/16 05:02 Hem Pathologist Commnt No 12/19/16 05:02 PT 16.1 Sec. (12.2-14.9) H 12/28/16 08:30 INR 1.23 (0.87-1.13) H 12/28/16 08:30 APTT 33.0 Sec. (24.2-36.6) 10/09/16 03:45 Thrombin Time 16.8 Sec. (15.1-19.6) 09/03/16 00:10 Fibrinogen 750 mg/dl (211-480) H 09/08/16 11:48 Lupus Anticoagulant see below 09/12/16 09:59 LA PTT Baseline See scanned report 09/12/16 09:59 dRVVT Confirm Interp Positive (Negative) H 09/12/16 09:59 dRVVT Screen 50:50 See scanned report 09/12/16 09:59 dRVVT Mix Interpret See scanned report 09/12/16 09:59 Protein C Antigen 122 % (70-140) 09/08/16 15:35 Free Protein S 97 % normal (50-147) 09/08/16 15:35 Total Protein S 109 % (70-140) 09/08/16 15:35 Antithrombin III Ag 100 % (80-120) 09/08/16 15:35 Heparin Anti-Xa, Unfract Negative (Negative) 09/29/16 13:35 Factor V Activity 182 % (65-150) H 09/08/16 15:35 POC ABG pH 7.503 (7.35-7.45) H 12/19/16 09:36 ABG pH 7.450 pH Units (7.350-7.450) 12/05/16 Unknown POC ABG pCO2 30.1 (35-45) L 12/19/16 09:36 ABG pCO2 29.6 mm Hg 12/05/16 Unknown POC ABG pO2 85 (80-105) 12/19/16 09:36 ABG pO2 75.2 mm Hg (80.0-90.0) L 12/05/16 Unknown POC ABG HCO3 23.6 12/19/16 09:36 ABG HCO3 20.1 mmol/L (20.0-26.0) 12/05/16 Unknown POC ABG Total CO2 25 12/19/16 09:36 POC ABG O2 Sat 97 12/19/16 09:36 ABG O2 Saturation 96.8 % (95.0-99.0) 12/05/16 Unknown ABG O2 Content 9.9 (0.0-44) 12/05/16 Unknown POC ABG Base Excess 1 12/19/16 09:36 ABG Base Excess -3.4 mmol/L (-2.0-3.0) L 12/05/16 Unknown ABG Hemoglobin 7.4 gm/dl (12.0-16.0) L 12/05/16 Unknown ABG Carboxyhemoglobin 1.8 % (0.0-5.0) 12/05/16 Unknown ABG Methemoglobin 0.6 % (0.0-1.5) 12/05/16 Unknown Oxyhemoglobin 94.5 % (95.0-99.0) L 12/05/16 Unknown FiO2 28 % 12/19/16 09:36 Sodium 141 mmol/L (137-145) 01/02/17 06:00 Potassium 4.3 mmol/L (3.6-5.0) 01/02/17 06:00 Chloride 103.5 mmol/L (98-107) 01/02/17 06:00 Carbon Dioxide 23 mmol/L (22-30) 01/02/17 06:00 Anion Gap 19 mmol/L 01/02/17 06:00 BUN 88 mg/dL (7-17) H 01/02/17 06:00 Creatinine 1.7 mg/dL (0.7-1.2) H 01/02/17 06:00 Estimated GFR 39 ml/min 01/02/17 06:00 BUN/Creatinine Ratio 52 % 01/02/17 06:00 Glucose 113 mg/dL (65-100) H 01/02/17 06:00 POC Glucose 200 (70-105) H 01/02/17 11:37 Osmolality 351 Mosm/kg 09/16/16 11:47 Lactic Acid 4.50 mmol/L (0.7-2.0) H* 09/28/16 07:25 Calcium 9.5 mg/dL (8.4-10.2) 01/02/17 06:00 Phosphorus 3.10 mg/dL (2.5-4.5) 01/02/17 06:00 Magnesium 2.20 mg/dL (1.7-2.3) 01/02/17 06:00 Total Bilirubin 0.50 mg/dL (0.1-1.2) 01/01/17 05:00 Direct Bilirubin 0.3 mg/dL (0-0.2) H 10/10/16 05:00 Indirect Bilirubin 0.1 mg/dL 10/10/16 05:00 AST 35 units/L (5-40) 01/01/17 05:00 ALT 51 units/L (7-56) 01/01/17 05:00 Alkaline Phosphatase 536 units/L (35-129) H 01/01/17 05:00 Ammonia 27.0 umol/L (25-60) 09/07/16 08:37 Lactate Dehydrogenase 196 units/L (91-180) H 11/11/16 06:59 Total Creatine Kinase 121 units/L (30-135) 09/29/16 20:12 CK-MB (CK-2) < 1.0 ng/mL (0.0-4.0) 09/29/16 20:12 CK-MB (CK-2) Rel Index 0.8 (0-4) 09/29/16 20:12 Troponin T 0.204 ng/mL (0.00-0.029) H* 09/29/16 20:12 C-Reactive Protein 19.30 mg/dL (0.00-1.30) H 12/05/16 05:00 Total Protein 6.3 g/dL (6.3-8.2) 01/01/17 05:00 Albumin 1.5 g/dL (3.9-5) L 01/01/17 05:00 Albumin/Globulin Ratio 0.3 % 01/01/17 05:00 Prealbumin 0.110 g/L (0.200-0.400) L 12/29/16 05:15 Triglycerides 137 mg/dL (2-149) 09/29/16 20:12 Cholesterol 31 mg/dL (50-199) L 09/29/16 20:12 LDL Cholesterol Direct 4 mg/dL (50-130) L 09/29/16 20:12 HDL Cholesterol 3 mg/dL (40-59) L 09/29/16 20:12 Cholesterol/HDL Ratio 10.33 % 09/29/16 20:12 Angiotensin Convert Enz See scanned report 09/08/16 11:48 Renin 0.99 ng/mL/h (0.25-5.82) 10/07/16 10:56 Aldosterone <1 ng/dL () 10/07/16 10:56 Aldosterone/Renin Dir see below 10/07/16 10:56 Serotonin Release Assay See scanned report 09/29/16 13:35 TSH 1.010 mlU/mL (0.270-4.200) 09/07/16 08:37 HCG, Qual Negative (Negative) 09/03/16 00:10 Urine Color Yellow (Yellow) 11/05/16 13:09 Urine Turbidity Clear (Clear) 11/05/16 13:09 Urine pH 9.0 (5.0-7.0) H 11/05/16 13:09 Ur Specific [place] 1.011 (1.003-1.030) 11/05/16 13:09 Urine Protein 100 mg/dl mg/dL (Negative) 11/05/16 13:09 Urine Glucose (UA) Neg mg/dL (Negative) 11/05/16 13:09 Urine Ketones Neg mg/dL (Negative) 11/05/16 13:09 Urine Blood Neg (Negative) 11/05/16 13:09 Urine Nitrite Neg (Negative) 11/05/16 13:09 Urine Bilirubin Neg (Negative) 11/05/16 13:09 Urine Urobilinogen < 2.0 mg/dL (<2.0) 11/05/16 13:09 Ur Leukocyte Esterase Neg (Negative) 11/05/16 13:09 Urine WBC (Auto) 4.0 /HPF (0.0-6.0) 11/05/16 13:09 Urine RBC (Auto) 1.0 /HPF (0.0-6.0) 11/05/16 13:09 U Epithel Cells (Auto) 1.0 /HPF (0-13.0) 10/07/16 18:30 Urine Bacteria (Auto) 4+ /HPF (Negative) 11/05/16 13:09 Urine WBC Clumps 2+ /HPF 09/07/16 02:47 Hyaline Casts 4 /LPF 09/07/16 02:47 Urine Mucus Few /HPF 10/07/16 18:30 Urine Yeast (Budding) 3+ /HPF 10/07/16 18:30 Urine Eosinophils None seen (None Seen) 09/07/16 16:00 Urine Total Volume 950 11/12/16 10:18 Urine Creatinine 19.7 mg/dL (0.1-20.0) 11/12/16 10:18 Height (in) 65.0 inches 11/12/16 10:18 Weight (lb) 181.0 lbs 11/12/16 10:18 Creatinine Clearance 5 11/12/16 10:18 Urine Sodium 36 mEq/L 09/16/16 19:19 Urine Total Protein 16 mg/dL (5-11.8) H 09/16/16 19:19 Fluid Total Protein < 3.0 (15.0-45.0) L 11/10/16 14:20 Fluid LDH 123 11/10/16 14:20 Vancomycin Trough 2.3 ug/mL (5.0-20.0) L 09/21/16 13:00 Random Vancomycin 16.5 ug/mL (0-40.0) 11/28/16 09:45 Urine Opiates Screen Presumptive negative 09/03/16 15:11 Urine Methadone Screen Presumptive positive 09/03/16 15:11 Ur Barbiturates Screen Presumptive positive 09/03/16 15:11 Ur Phencyclidine Scrn Presumptive negative 09/03/16 15:11 Ur Amphetamines Screen Presumptive negative 09/03/16 15:11 U Benzodiazepines Scrn Presumptive negative 09/03/16 15:11 Urine Cocaine Screen Presumptive negative 09/03/16 15:11 U Marijuana (THC) Screen Presumptive positive 09/03/16 15:11 Drugs of Abuse Note Disclamer 09/03/16 15:11 Rheumatoid Factor 24 IU/ml (0-13) H 09/08/16 11:48 SAHIL Screen Negative (Negative) 09/07/16 09:20 Proteinase 3 (PR3) Ab <1.0 AI (<1.0) 09/07/16 09:20 Myeloperoxidase Ab <1.0 AI (<1.0) 09/07/16 09:20 Sjogren's Antibody <1.0 AI (<1.0) 09/08/16 15:35 Scl-70 Scleroderma Ab <1.0 AI (<1.0) 09/08/16 15:35 Centromere B Antibody <1.0 AI (<1.0) 09/08/16 12:02 Heparin-induced Plt Ab Negative (Negative) 09/29/16 13:35 UF Heparin High Dose 11 % Release 09/29/16 13:35 SUDHIR UFH Low Dose 0.1 6 % Release 09/29/16 13:35 SUDHIR UFH Low Dose 0.5 8 % Release 09/29/16 13:35 Cardiolipid IgG Ab <14 GPL (<=14) 09/12/16 09:59 Cardiolipid IgA Ab <11 APL (<=11) 09/12/16 09:59 Cardiolipid IgM Ab <12 MPL (<=12) 09/12/16 09:59 Complement C3 148 mg/dL (90-180) 09/07/16 09:20 Complement C4 58 mg/dL (16-47) H 09/07/16 09:20 RPR Nonreactive (Nonreactive) 09/08/16 11:48 Hepatitis A IgM Ab Non-reactive (NonReactive) 09/24/16 14:40 Hep Bs Antigen Non-reactive (Negative) 09/24/16 14:40 Hep B Core IgM Ab Non-reactive (NonReactive) 09/24/16 14:40 Hepatitis C Antibody Non-reactive (NonReactive) 09/24/16 14:40 HIV 1&2 Antibody Rapid Non react (Non React) 09/08/16 11:48 HIV P24 Antigen Non react (Non React) 09/08/16 11:48 Miscellaneous Test Flexitest 1 H 11/05/16 13:25 Blood Type A POSITIVE 12/29/16 14:00 Antibody Screen Negative 12/29/16 14:00 DELORIS Antibody Screen Negative 11/24/16 11:20 Crossmatch See Detail 12/29/16 14:00
--- NOTE | 2017-01-02 14:46 | XRay Report ---
PORTABLE CHEST INDICATION: Pulmonary edema, pleural effusions. COMPARISON: 12/26/2016 FINDINGS: Portable, frontal chest radiograph demonstrates stable to slightly worse hazy layering pleural fluid bilaterally with obscured hemidiaphragms. Normal cardiomediastinal silhouette with stable tracheostomy and esophagogastric tubes, left upper extremity PICC, left subclavian central catheter, EKG leads and osseous structures. CONCLUSION: Stable to slight radiographic worsening of CHF, bilateral pleural effusions with other findings, as above. Please correlate. Thank you for the opportunity to participate in this patient's care.
[2017-01-02] MEDS ORDERED: TPN ADULT IV SCH (20:00)
[2017-01-02] MEDS ORDERED: INTRALIPID 20% 250 ML IV SCH (20:00)
[2017-01-03] MEDS: HumuLIN R SUB-Q SCH ×4 (00:05→18:23)
[2017-01-03] MEDS: DUONEB *Not for PRN Use IH SCH ×4 (02:36→19:34)
[2017-01-03 05:09] LABS: Basophils # (Auto) 0.1 K/mm3 (0.0-0.1); Basophils % (Auto) 0.5 % (0.0-1.8); Eosinophils # (Auto) 0.1 K/mm3 (0.0-0.4); Eosinophils % (Auto) 0.5 % (0.0-4.3); Hematocrit 22.3 % (30.3-42.9); Hemoglobin 7.2 gm/dl (10.1-14.3); Lymphocytes # (Auto) 2.1 K/mm3 (1.2-5.4); Lymphocytes % (Auto) 18.5 % (13.4-35.0); Mean Corpuscular HGB Conc 32 % (30-34); Mean Corpuscular Hemoglobin 28 pg (28-32); Mean Corpuscular Volume 87 fl (79-97); Monocytes # (Auto) 1.1 K/mm3 (0.0-0.8); Platelet Count 366 K/mm3 (140-440); Red Blood Count 2.56 M/mm3 (3.65-5.03); Red Cell Distribution Width 17.3 % (13.2-15.2)
[2017-01-03] MEDS: APRESOLINE PO SCH ×3 (05:22→22:12)
[2017-01-03] MEDS: REGLAN IV SCH (05:24)
[2017-01-03] MEDS: LOPRESSOR PO SCH ×3 (05:25→18:54)
[2017-01-03] MEDS: DAKIN'S HALF STRENGTH TP SCH ×2 (10:00→23:48)
[2017-01-03] MEDS: CORDARONE PO SCH ×2 (10:00→22:12)
[2017-01-03] MEDS: NORVASC PO SCH (10:00)
[2017-01-03] MEDS: PROTONIX FEEDTUBE SCH (11:00)
[2017-01-03] MEDS: ROBINUL PO SCH ×2 (11:00→22:11)
[2017-01-03] MEDS: HEPARIN SUB-Q SCH ×2 (11:39→22:11)
--- NOTE | 2017-01-03 12:59 | Progress Note ---
Assessment and Plan - Patient Problems (1) JUANITA (acute kidney injury) Current Visit: Yes Status: Acute Plan to address problem: JUANITA/ non oliguric. Acute on chronic respiratory failure-ventilator dependent. S /P HD yesterday. Scr 1.4 today. Monitor renal function. Multiple comorbid conditions-Suggest supportive care .S/P surgical debridement for sacral decubitus. Encephalopathy-same. 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 insulin use : D Laterality: L Chronic kidney disease stage: C (6) Anemia Current Visit: No Status: Acute Qualifiers: Anemia type: unspecified type Iron deficiency anemia type: I Vitamin B12 deficiency anemia type: V Folate deficiency anemia type: F Bone marrow failure anemia type: B Hemolytic anemia type: H Other causes of anemia: O Chronic kidney disease stage: C Qualified Code(s): D64.9 - Anemia, unspecified (7) HTN (hypertension) Current Visit: Yes Status: Chronic Qualifiers: Hypertension type: H (8) Diabetes Current Visit: Yes Status: Chronic Qualifiers: Diabetes mellitus type: type 2 Diabetes mellitus complication status: with hyperglycemia Diabetes mellitus complication detail: D Diabetic retinopathy severity: D Proliferative retinopathy type: P Diabetes mellitus macular edema: D 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 on ventilator via trach. Fio2-35% . Pt remains non communicative. Has wound vac on sacral area Objective - Vital Signs Vital signs: Vital Signs - 12hr 01/03/17 01/03/17 01/03/17 01:00 01:15 01:30 Temperature Pulse Rate 87 89 94 H Pulse Rate [ Anterior Bilateral Throughout] Pulse Rate [ From Monitor] Pulse Rate [ Left Dorsalis Pedis] Pulse Rate [ Left Radial] Pulse Rate [ Right Dorsalis Pedis] Pulse Rate [ Right Radial] Respiratory 19 19 22 Rate Respiratory Rate [Anterior Bilateral Throughout] Respiratory Rate [ Generalized] Blood Pressure 124/79 138/82 150/93 O2 Sat by Pulse 100 100 100 Oximetry O2 Sat by Pulse Oximetry [ Assessment] 01/03/17 01/03/17 01/03/17 01:45 02:00 02:15 Temperature Pulse Rate 94 H 92 H 91 H Pulse Rate [ 91 H 92 H Anterior Bilateral Throughout] Pulse Rate [ From Monitor] Pulse Rate [ Left Dorsalis Pedis] Pulse Rate [ Left Radial] Pulse Rate [ Right Dorsalis Pedis] Pulse Rate [ Right Radial] Respiratory 14 14 10 L Rate Respiratory 15 18 Rate [Anterior Bilateral Throughout] Respiratory Rate [ Generalized] Blood Pressure 145/87 118/79 126/77 O2 Sat by Pulse 100 100 100 Oximetry O2 Sat by Pulse Oximetry [ Assessment] 01/03/17 01/03/17 01/03/17 02:30 02:45 03:00 Temperature Pulse Rate 92 H 94 H 93 H Pulse Rate [ Anterior Bilateral Throughout] Pulse Rate [ From Monitor] Pulse Rate [ Left Dorsalis Pedis] Pulse Rate [ Left Radial] Pulse Rate [ Right Dorsalis Pedis] Pulse Rate [ Right Radial] Respiratory 21 18 19 Rate Respiratory Rate [Anterior Bilateral Throughout] Respiratory Rate [ Generalized] Blood Pressure 127/80 130/78 121/78 O2 Sat by Pulse 100 100 100 Oximetry O2 Sat by Pulse Oximetry [ Assessment] 01/03/17 01/03/17 01/03/17 03:15 03:30 03:45 Temperature Pulse Rate 94 H 94 H 97 H Pulse Rate [ Anterior Bilateral Throughout] Pulse Rate [ From Monitor] Pulse Rate [ Left Dorsalis Pedis] Pulse Rate [ Left Radial] Pulse Rate [ Right Dorsalis Pedis] Pulse Rate [ Right Radial] Respiratory 21 26 H 22 Rate Respiratory Rate [Anterior Bilateral Throughout] Respiratory Rate [ Generalized] Blood Pressure 130/82 134/78 132/80 O2 Sat by Pulse 100 99 100 Oximetry O2 Sat by Pulse Oximetry [ Assessment] 01/03/17 01/03/17 01/03/17 04:00 04:15 04:30 Temperature 99.4 F Pulse Rate 97 H 97 H 97 H Pulse Rate [ Anterior Bilateral Throughout] Pulse Rate [ 66 From Monitor] Pulse Rate [ 66 Left Dorsalis Pedis] Pulse Rate [ 66 Left Radial] Pulse Rate [ 66 Right Dorsalis Pedis] Pulse Rate [ 66 Right Radial] Respiratory 18 19 18 Rate Respiratory Rate [Anterior Bilateral Throughout] Respiratory Rate [ Generalized] Blood Pressure 137/80 135/76 133/82 O2 Sat by Pulse 100 100 100 Oximetry O2 Sat by Pulse Oximetry [ Assessment] 01/03/17 01/03/17 01/03/17 04:45 05:00 05:15 Temperature Pulse Rate 99 H 103 H 99 H Pulse Rate [ Anterior Bilateral Throughout] Pulse Rate [ From Monitor] Pulse Rate [ Left Dorsalis Pedis] Pulse Rate [ Left Radial] Pulse Rate [ Right Dorsalis Pedis] Pulse Rate [ Right Radial] Respiratory 14 21 17 Rate Respiratory Rate [Anterior Bilateral Throughout] Respiratory Rate [ Generalized] Blood Pressure 135/86 146/78 127/73 O2 Sat by Pulse 100 100 100 Oximetry O2 Sat by Pulse Oximetry [ Assessment] 01/03/17 01/03/17 01/03/17 05:22 05:25 05:30 Temperature Pulse Rate 99 H 99 H 103 H Pulse Rate [ Anterior Bilateral Throughout] Pulse Rate [ From Monitor] Pulse Rate [ Left Dorsalis Pedis] Pulse Rate [ Left Radial] Pulse Rate [ Right Dorsalis Pedis] Pulse Rate [ Right Radial] Respiratory 16 Rate Respiratory Rate [Anterior Bilateral Throughout] Respiratory Rate [ Generalized] Blood Pressure 127/73 127/73 129/83 O2 Sat by Pulse 100 Oximetry O2 Sat by Pulse Oximetry [ Assessment] 01/03/17 01/03/17 01/03/17 05:45 06:00 06:15 Temperature Pulse Rate 101 H 97 H 96 H Pulse Rate [ Anterior Bilateral Throughout] Pulse Rate [ From Monitor] Pulse Rate [ Left Dorsalis Pedis] Pulse Rate [ Left Radial] Pulse Rate [ Right Dorsalis Pedis] Pulse Rate [ Right Radial] Respiratory 13 19 17 Rate Respiratory Rate [Anterior Bilateral Throughout] Respiratory Rate [ Generalized] Blood Pressure 147/84 149/88 150/89 O2 Sat by Pulse 100 99 99 Oximetry O2 Sat by Pulse Oximetry [ Assessment] 01/03/17 01/03/17 01/03/17 06:30 06:45 07:00 Temperature Pulse Rate 94 H 95 H 97 H Pulse Rate [ Anterior Bilateral Throughout] Pulse Rate [ From Monitor] Pulse Rate [ Left Dorsalis Pedis] Pulse Rate [ Left Radial] Pulse Rate [ Right Dorsalis Pedis] Pulse Rate [ Right Radial] Respiratory 22 20 22 Rate Respiratory Rate [Anterior Bilateral Throughout] Respiratory Rate [ Generalized] Blood Pressure 148/91 147/91 146/91 O2 Sat by Pulse 99 99 99 Oximetry O2 Sat by Pulse Oximetry [ Assessment] 01/03/17 01/03/17 01/03/17 07:15 07:19 07:20 Temperature Pulse Rate 95 H 98 H Pulse Rate [ 97 H Anterior Bilateral Throughout] Pulse Rate [ From Monitor] Pulse Rate [ Left Dorsalis Pedis] Pulse Rate [ Left Radial] Pulse Rate [ Right Dorsalis Pedis] Pulse Rate [ Right Radial] Respiratory 21 22 Rate Respiratory 22 Rate [Anterior Bilateral Throughout] Respiratory Rate [ Generalized] Blood Pressure 144/93 144/93 O2 Sat by Pulse 99 99 Oximetry O2 Sat by Pulse Oximetry [ Assessment] 01/03/17 01/03/17 01/03/17 07:22 07:30 07:34 Temperature Pulse Rate 96 H Pulse Rate [ 96 H Anterior Bilateral Throughout] Pulse Rate [ From Monitor] Pulse Rate [ Left Dorsalis Pedis] Pulse Rate [ Left Radial] Pulse Rate [ Right Dorsalis Pedis] Pulse Rate [ Right Radial] Respiratory 41 H Rate Respiratory 20 Rate [Anterior Bilateral Throughout] Respiratory Rate [ Generalized] Blood Pressure 133/84 O2 Sat by Pulse 87 Oximetry O2 Sat by Pulse 100 Oximetry [ Assessment] 01/03/17 01/03/17 01/03/17 07:45 08:00 08:15 Temperature 99.2 F Pulse Rate 94 H 93 H 94 H Pulse Rate [ Anterior Bilateral Throughout] Pulse Rate [ From Monitor] Pulse Rate [ Left Dorsalis Pedis] Pulse Rate [ Left Radial] Pulse Rate [ Right Dorsalis Pedis] Pulse Rate [ Right Radial] Respiratory 28 H 30 H 42 H Rate Respiratory Rate [Anterior Bilateral Throughout] Respiratory Rate [ Generalized] Blood Pressure 139/85 139/83 134/79 O2 Sat by Pulse 99 99 88 Oximetry O2 Sat by Pulse Oximetry [ Assessment] 01/03/17 01/03/17 01/03/17 08:30 08:45 09:00 Temperature Pulse Rate 94 H 96 H 95 H Pulse Rate [ Anterior Bilateral Throughout] Pulse Rate [ From Monitor] Pulse Rate [ Left Dorsalis Pedis] Pulse Rate [ Left Radial] Pulse Rate [ Right Dorsalis Pedis] Pulse Rate [ Right Radial] Respiratory 41 H 40 H 38 H Rate Respiratory Rate [Anterior Bilateral Throughout] Respiratory Rate [ Generalized] Blood Pressure 135/83 133/82 129/75 O2 Sat by Pulse 89 89 89 Oximetry O2 Sat by Pulse Oximetry [ Assessment] 01/03/17 01/03/17 01/03/17 09:15 09:30 09:45 Temperature Pulse Rate 96 H 96 H 96 H Pulse Rate [ Anterior Bilateral Throughout] Pulse Rate [ From Monitor] Pulse Rate [ Left Dorsalis Pedis] Pulse Rate [ Left Radial] Pulse Rate [ Right Dorsalis Pedis] Pulse Rate [ Right Radial] Respiratory 38 H 27 H 38 H Rate Respiratory Rate [Anterior Bilateral Throughout] Respiratory Rate [ Generalized] Blood Pressure 135/84 136/84 116/76 O2 Sat by Pulse 89 99 96 Oximetry O2 Sat by Pulse Oximetry [ Assessment] 01/03/17 01/03/17 10:00 12:15 Temperature Pulse Rate 97 H 97 H Pulse Rate [ Anterior Bilateral Throughout] Pulse Rate [ From Monitor] Pulse Rate [ Left Dorsalis Pedis] Pulse Rate [ Left Radial] Pulse Rate [ Right Dorsalis Pedis] Pulse Rate [ Right Radial] Respiratory 22 26 H Rate Respiratory Rate [Anterior Bilateral Throughout] Respiratory 29 H Rate [ Generalized] Blood Pressure 122/80 122/80 O2 Sat by Pulse 99 99 Oximetry O2 Sat by Pulse Oximetry [ Assessment] - General Appearance General appearance: chronically ill, other (on ventilator, awake, but not following commands) EENT: mucous membranes dry Neck: no JVD Respiratory: Present: Decreased Breath Sounds Cardiology: regular, systolic murmur Gastrointestinal: normoactive bowel sounds Musculoskeletal: other (1+dependent edema) - Lab 01/03/17 05:00 01/03/17 05:00 Most recent lab results ABG pH 7.450 pH Units (7.350-7.450) 12/05/16 Unknown ABG pCO2 29.6 mm Hg 12/05/16 Unknown ABG pO2 75.2 mm Hg (80.0-90.0) L 12/05/16 Unknown ABG HCO3 20.1 mmol/L (20.0-26.0) 12/05/16 Unknown ABG O2 Saturation 96.8 % (95.0-99.0) 12/05/16 Unknown Calcium 9.0 mg/dL (8.4-10.2) 01/03/17 05:00 Phosphorus 3.10 mg/dL (2.5-4.5) 01/02/17 06:00 Magnesium 2.20 mg/dL (1.7-2.3) 01/02/17 06:00 Urine Creatinine 19.7 mg/dL (0.1-20.0) 11/12/16 10:18 Urine Sodium 36 mEq/L 09/16/16 19:19 Urine Total Protein 16 mg/dL (5-11.8) H 09/16/16 19:19
--- NOTE | 2017-01-03 13:28 | Progress Note ---
Assessment and Plan Patient is 46-year-old woman with a history of hypertension, diabetes mellitus, asthma, hyperlipidemia, chronic kidney disease and anxiety, who was brought in by family because she couldn't get her words out, her face was also twisted, she was admitted for acute CVA and accelerated hypertension, she had a hx of poor adherence with her medications, and uncontrolled htn. Patient's SBP on admission was noted be greater than 260. TPA was started but this it was discontinued after 5 minutes because her blood pressure became uncontrolled. The TPA was not initiated again because the patient was outside the TPA window. Patient has had a prolonged hospital stay complicated with recurrent severe sepsis. Patient with most recent event also status post cardiac arrest on , with CPR and ROSC. Acute on chronic Hypoxemic Respiratory Failure ( not tolerating spontaneous breathing trials) Sepsis -recurrent s/p tracheostomy Hypertension Atrial Fibrillation with RVR Acute encephalopathy s/p CVA Oropharyngeal dysphagia Enterococcal bacteremia Sacral Decubitus Ulcer- unstageable Anemia Obesity JUANITA now on hemodialysis Enteric Fistula - VAP bundle addressed -CXR prn - continue NGT to LIS - continue wound care per WCT - Vasopressor if MAP falls < 65mmHg - keep on with daily PSV trials and / or T-piece as tolerated - continue TPN administration (continue TPN; NPO except for meds) - continue airway clearance nd secretion management - continue to wean FiO2 for sats > 94% - continue antihypertensives and monitor hemodynamics closely - continue HD/UF per nephrology - continue to follow electrolytes and correct as necessary - continue GI & VTE prophylaxis -per Cardiology--failed cardioversion, not a candidate fro full anticoagulation. No further recommendations for management of atrial fibrillation. Rate control as tolerated by hemodynamics For further interventions per surgical service, as it pertains to the replacement of the PEG tube. 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 - Patient Problems (1) Acute respiratory failure with hypoxia Current Visit: Yes Status: Acute (2) Acute blood loss anemia Current Visit: Yes Status: Resolved (3) Acute CVA (cerebrovascular accident) Current Visit: Yes Status: Acute (4) Chronic renal insufficiency Current Visit: Yes Status: Acute (5) Uncontrolled hypertension Current Visit: Yes Status: Acute (6) Leukocytosis (leucocytosis) Current Visit: Yes Status: Acute Qualifiers: Leukocytosis type: leukemoid reaction Qualified Code(s): D72.823 - Leukemoid reaction (7) Dislodged gastrostomy tube Current Visit: Yes Status: Acute (8) Fungemia Current Visit: Yes Status: Resolved (9) Cardiopulmonary arrest with successful resuscitation Current Visit: Yes Status: Acute Subjective Date of service: 01/03/17 Principal diagnosis: Acute resp failure on MVS; S/P Acute CVA; Acute Encephalopathy; JUANITA Interval history: Patient is seen today for: Acute resp failure on MVS; S/P Acute CVA; Acute Encephalopathy; JUANITA Seen and examined at bedside; 24hour events reviewed; nursing and respiratory care staff consulted; no adverse overnight events reported to me; She remains critically ill and is not tolerating weaning well; Seen and examined. Vitals, labs, medications, chart reviewed. On mechanical ventilatory support, not tolerating SBTs Sacral decubitus ulcers/p debridement, wound vac in place No fevers CXR show worsening pleural effusions No further episodes of vomiting. Discussed in interdisciplinary rounds Objective - Exam Narrative Exam: , Vital Signs - 12hr 01/03/17 01/03/17 01/03/17 01:30 01:45 02:00 Temperature Pulse Rate 94 H 94 H 92 H Pulse Rate [ 91 H Anterior Bilateral Throughout] Pulse Rate [ From Monitor] Pulse Rate [ Left Dorsalis Pedis] Pulse Rate [ Left Radial] Pulse Rate [ Right Dorsalis Pedis] Pulse Rate [ Right Radial] Respiratory 22 14 14 Rate Respiratory 15 Rate [Anterior Bilateral Throughout] Respiratory Rate [ Generalized] Blood Pressure 150/93 145/87 118/79 O2 Sat by Pulse 100 100 100 Oximetry O2 Sat by Pulse Oximetry [ Assessment] 01/03/17 01/03/17 01/03/17 02:15 02:30 02:45 Temperature Pulse Rate 91 H 92 H 94 H Pulse Rate [ 92 H Anterior Bilateral Throughout] Pulse Rate [ From Monitor] Pulse Rate [ Left Dorsalis Pedis] Pulse Rate [ Left Radial] Pulse Rate [ Right Dorsalis Pedis] Pulse Rate [ Right Radial] Respiratory 10 L 21 18 Rate Respiratory 18 Rate [Anterior Bilateral Throughout] Respiratory Rate [ Generalized] Blood Pressure 126/77 127/80 130/78 O2 Sat by Pulse 100 100 100 Oximetry O2 Sat by Pulse Oximetry [ Assessment] 01/03/17 01/03/17 01/03/17 03:00 03:15 03:30 Temperature Pulse Rate 93 H 94 H 94 H Pulse Rate [ Anterior Bilateral Throughout] Pulse Rate [ From Monitor] Pulse Rate [ Left Dorsalis Pedis] Pulse Rate [ Left Radial] Pulse Rate [ Right Dorsalis Pedis] Pulse Rate [ Right Radial] Respiratory 19 21 26 H Rate Respiratory Rate [Anterior Bilateral Throughout] Respiratory Rate [ Generalized] Blood Pressure 121/78 130/82 134/78 O2 Sat by Pulse 100 100 99 Oximetry O2 Sat by Pulse Oximetry [ Assessment] 01/03/17 01/03/17 01/03/17 03:45 04:00 04:15 Temperature 99.4 F Pulse Rate 97 H 97 H 97 H Pulse Rate [ Anterior Bilateral Throughout] Pulse Rate [ 66 From Monitor] Pulse Rate [ 66 Left Dorsalis Pedis] Pulse Rate [ 66 Left Radial] Pulse Rate [ 66 Right Dorsalis Pedis] Pulse Rate [ 66 Right Radial] Respiratory 22 18 19 Rate Respiratory Rate [Anterior Bilateral Throughout] Respiratory Rate [ Generalized] Blood Pressure 132/80 137/80 135/76 O2 Sat by Pulse 100 100 100 Oximetry O2 Sat by Pulse Oximetry [ Assessment] 01/03/17 01/03/17 01/03/17 04:30 04:45 05:00 Temperature Pulse Rate 97 H 99 H 103 H Pulse Rate [ Anterior Bilateral Throughout] Pulse Rate [ From Monitor] Pulse Rate [ Left Dorsalis Pedis] Pulse Rate [ Left Radial] Pulse Rate [ Right Dorsalis Pedis] Pulse Rate [ Right Radial] Respiratory 18 14 21 Rate Respiratory Rate [Anterior Bilateral Throughout] Respiratory Rate [ Generalized] Blood Pressure 133/82 135/86 146/78 O2 Sat by Pulse 100 100 100 Oximetry O2 Sat by Pulse Oximetry [ Assessment] 01/03/17 01/03/17 01/03/17 05:15 05:22 05:25 Temperature Pulse Rate 99 H 99 H 99 H Pulse Rate [ Anterior Bilateral Throughout] Pulse Rate [ From Monitor] Pulse Rate [ Left Dorsalis Pedis] Pulse Rate [ Left Radial] Pulse Rate [ Right Dorsalis Pedis] Pulse Rate [ Right Radial] Respiratory 17 Rate Respiratory Rate [Anterior Bilateral Throughout] Respiratory Rate [ Generalized] Blood Pressure 127/73 127/73 127/73 O2 Sat by Pulse 100 Oximetry O2 Sat by Pulse Oximetry [ Assessment] 01/03/17 01/03/17 01/03/17 05:30 05:45 06:00 Temperature Pulse Rate 103 H 101 H 97 H Pulse Rate [ Anterior Bilateral Throughout] Pulse Rate [ From Monitor] Pulse Rate [ Left Dorsalis Pedis] Pulse Rate [ Left Radial] Pulse Rate [ Right Dorsalis Pedis] Pulse Rate [ Right Radial] Respiratory 16 13 19 Rate Respiratory Rate [Anterior Bilateral Throughout] Respiratory Rate [ Generalized] Blood Pressure 129/83 147/84 149/88 O2 Sat by Pulse 100 100 99 Oximetry O2 Sat by Pulse Oximetry [ Assessment] 01/03/17 01/03/17 01/03/17 06:15 06:30 06:45 Temperature Pulse Rate 96 H 94 H 95 H Pulse Rate [ Anterior Bilateral Throughout] Pulse Rate [ From Monitor] Pulse Rate [ Left Dorsalis Pedis] Pulse Rate [ Left Radial] Pulse Rate [ Right Dorsalis Pedis] Pulse Rate [ Right Radial] Respiratory 17 22 20 Rate Respiratory Rate [Anterior Bilateral Throughout] Respiratory Rate [ Generalized] Blood Pressure 150/89 148/91 147/91 O2 Sat by Pulse 99 99 99 Oximetry O2 Sat by Pulse Oximetry [ Assessment] 01/03/17 01/03/17 01/03/17 07:00 07:15 07:19 Temperature Pulse Rate 97 H 95 H Pulse Rate [ 97 H Anterior Bilateral Throughout] Pulse Rate [ From Monitor] Pulse Rate [ Left Dorsalis Pedis] Pulse Rate [ Left Radial] Pulse Rate [ Right Dorsalis Pedis] Pulse Rate [ Right Radial] Respiratory 22 21 Rate Respiratory 22 Rate [Anterior Bilateral Throughout] Respiratory Rate [ Generalized] Blood Pressure 146/91 144/93 O2 Sat by Pulse 99 99 Oximetry O2 Sat by Pulse Oximetry [ Assessment] 01/03/17 01/03/17 01/03/17 07:20 07:22 07:30 Temperature Pulse Rate 98 H 96 H Pulse Rate [ Anterior Bilateral Throughout] Pulse Rate [ From Monitor] Pulse Rate [ Left Dorsalis Pedis] Pulse Rate [ Left Radial] Pulse Rate [ Right Dorsalis Pedis] Pulse Rate [ Right Radial] Respiratory 22 41 H Rate Respiratory Rate [Anterior Bilateral Throughout] Respiratory Rate [ Generalized] Blood Pressure 144/93 133/84 O2 Sat by Pulse 99 87 Oximetry O2 Sat by Pulse 100 Oximetry [ Assessment] 01/03/17 01/03/17 01/03/17 07:34 07:45 08:00 Temperature 99.2 F Pulse Rate 94 H 93 H Pulse Rate [ 96 H Anterior Bilateral Throughout] Pulse Rate [ From Monitor] Pulse Rate [ Left Dorsalis Pedis] Pulse Rate [ Left Radial] Pulse Rate [ Right Dorsalis Pedis] Pulse Rate [ Right Radial] Respiratory 28 H 30 H Rate Respiratory 20 Rate [Anterior Bilateral Throughout] Respiratory Rate [ Generalized] Blood Pressure 139/85 139/83 O2 Sat by Pulse 99 99 Oximetry O2 Sat by Pulse Oximetry [ Assessment] 01/03/17 01/03/17 01/03/17 08:15 08:30 08:45 Temperature Pulse Rate 94 H 94 H 96 H Pulse Rate [ Anterior Bilateral Throughout] Pulse Rate [ From Monitor] Pulse Rate [ Left Dorsalis Pedis] Pulse Rate [ Left Radial] Pulse Rate [ Right Dorsalis Pedis] Pulse Rate [ Right Radial] Respiratory 42 H 41 H 40 H Rate Respiratory Rate [Anterior Bilateral Throughout] Respiratory Rate [ Generalized] Blood Pressure 134/79 135/83 133/82 O2 Sat by Pulse 88 89 89 Oximetry O2 Sat by Pulse Oximetry [ Assessment] 01/03/17 01/03/17 01/03/17 09:00 09:15 09:30 Temperature Pulse Rate 95 H 96 H 96 H Pulse Rate [ Anterior Bilateral Throughout] Pulse Rate [ From Monitor] Pulse Rate [ Left Dorsalis Pedis] Pulse Rate [ Left Radial] Pulse Rate [ Right Dorsalis Pedis] Pulse Rate [ Right Radial] Respiratory 38 H 38 H 27 H Rate Respiratory Rate [Anterior Bilateral Throughout] Respiratory Rate [ Generalized] Blood Pressure 129/75 135/84 136/84 O2 Sat by Pulse 89 89 99 Oximetry O2 Sat by Pulse Oximetry [ Assessment] 01/03/17 01/03/17 01/03/17 09:45 10:00 12:15 Temperature Pulse Rate 96 H 97 H 97 H Pulse Rate [ Anterior Bilateral Throughout] Pulse Rate [ From Monitor] Pulse Rate [ Left Dorsalis Pedis] Pulse Rate [ Left Radial] Pulse Rate [ Right Dorsalis Pedis] Pulse Rate [ Right Radial] Respiratory 38 H 22 26 H Rate Respiratory Rate [Anterior Bilateral Throughout] Respiratory 29 H Rate [ Generalized] Blood Pressure 116/76 122/80 122/80 O2 Sat by Pulse 96 99 99 Oximetry O2 Sat by Pulse Oximetry [ Assessment] 01/03/17 13:16 Temperature Pulse Rate Pulse Rate [ 101 H Anterior Bilateral Throughout] Pulse Rate [ From Monitor] Pulse Rate [ Left Dorsalis Pedis] Pulse Rate [ Left Radial] Pulse Rate [ Right Dorsalis Pedis] Pulse Rate [ Right Radial] Respiratory Rate Respiratory 26 H Rate [Anterior Bilateral Throughout] Respiratory Rate [ Generalized] Blood Pressure O2 Sat by Pulse Oximetry O2 Sat by Pulse Oximetry [ Assessment] Constitutional: appears uncomfortable, other (not tracking) Eyes: non-icteric, other (tracheostomy tube in midline of neck) ENT: oropharynx moist, oropharyngeal exudate pre Neck: supple, no lymphadenopathy, no JVD, other (no thyromegaly) Effort: mildly labored Ascultation: Bilateral: clear, diminished breath sounds (bases), rales, rhonchi (and referred upper airway sounds) Percussion: Bilateral: not dull, dull (bases) Cardiovascular: regular rate and rhythm, other (no rubs / murmurs) Gastrointestinal: hypoactive bowel sounds, soft, non-tender, non-distended, other (RLQ & LUQ stomas with colostomy bags) Integumentary: decubitus ulcer (sacral; stage 4 s/p surgical debridement), other (no rash; no cellulitis; poor turgor) Extremities: no cyanosis, pulses normal, no ischemia or petechiae, edema (1+ bilaterally) Neurologic: pupils equal and round, unable to assess, other (encephalopathic) Psychiatric: other (unable to assess) CBC and BMP: 01/12/17 04:30 01/14/17 05:30 ABG, PT/INR, D-dimer: ABG POC ABG pH 7.503 (7.35-7.45) H 12/19/16 09:36 ABG pH 7.450 pH Units (7.350-7.450) 12/05/16 Unknown POC ABG pCO2 30.1 (35-45) L 12/19/16 09:36 ABG pCO2 29.6 mm Hg 12/05/16 Unknown POC ABG pO2 85 (80-105) 12/19/16 09:36 ABG pO2 75.2 mm Hg (80.0-90.0) L 12/05/16 Unknown POC ABG HCO3 23.6 12/19/16 09:36 POC ABG Total CO2 25 12/19/16 09:36 POC ABG O2 Sat 97 12/19/16 09:36 ABG O2 Saturation 96.8 % (95.0-99.0) 12/05/16 Unknown PT/INR, D-dimer PT 16.1 Sec. (12.2-14.9) H 12/28/16 08:30 INR 1.23 (0.87-1.13) H 12/28/16 08:30 Abnormal lab findings: Abnormal Labs 09/03/16 09/03/16 09/03/16 12:12 15:07 16:20 WBC RBC Hgb Hct MCV MCH MCHC RDW Plt Count Lymph % (Auto) [place] % (Auto) Lymph # [place] # Baso # Seg Neutrophils % Seg Neuts % (Manual) Lymphocytes % (Manual) Monocytes % (Manual) Eosinophils % (Manual) Basophils % (Manual) Nucleated RBC % Seg Neutrophils # Seg Neutrophils # Man Lymphocytes # (Manual) Monocytes # (Manual) Eosinophils # (Manual) Basophils # (Manual) PT INR Fibrinogen dRVVT Confirm Interp Factor V Activity POC ABG pH 7.452 H POC ABG pCO2 POC ABG pO2 ABG pO2 ABG HCO3 ABG Base Excess ABG Hemoglobin Oxyhemoglobin Sodium Potassium Chloride Carbon Dioxide BUN Creatinine Glucose POC Glucose 178 H Lactic Acid Calcium Phosphorus 2.20 L Magnesium 1.60 L Direct Bilirubin AST ALT Alkaline Phosphatase Lactate Dehydrogenase Troponin T C-Reactive Protein Total Protein Albumin Prealbumin Triglycerides Cholesterol LDL Cholesterol Direct HDL Cholesterol Urine pH Urine WBC (Auto) Urine Creatinine Urine Total Protein Fluid Total Protein Vancomycin Trough Rheumatoid Factor Complement C4 Miscellaneous Test Crossmatch 09/03/16 09/03/16 09/03/16 17:57 17:58 23:50 WBC RBC Hgb Hct MCV MCH MCHC RDW Plt Count Lymph % (Auto) [place] % (Auto) Lymph # [place] # Baso # Seg Neutrophils % Seg Neuts % (Manual) Lymphocytes % (Manual) Monocytes % (Manual) Eosinophils % (Manual) Basophils % (Manual) Nucleated RBC % Seg Neutrophils # Seg Neutrophils # Man Lymphocytes # (Manual) Monocytes # (Manual) Eosinophils # (Manual) Basophils # (Manual) PT INR Fibrinogen dRVVT Confirm Interp Factor V Activity POC ABG pH POC ABG pCO2 POC ABG pO2 ABG pO2 ABG HCO3 ABG Base Excess ABG Hemoglobin Oxyhemoglobin Sodium Potassium Chloride Carbon Dioxide BUN Creatinine Glucose POC Glucose 162 H 145 H Lactic Acid Calcium Phosphorus 2.30 L Magnesium Direct Bilirubin AST ALT Alkaline Phosphatase Lactate Dehydrogenase Troponin T C-Reactive Protein Total Protein Albumin Prealbumin Triglycerides Cholesterol LDL Cholesterol Direct HDL Cholesterol Urine pH Urine WBC (Auto) Urine Creatinine Urine Total Protein Fluid Total Protein Vancomycin Trough Rheumatoid Factor Complement C4 Miscellaneous Test Crossmatch 09/04/16 09/04/16 09/04/16 03:31 03:31 05:42 WBC RBC Hgb 9.7 L D Hct MCV 72 L MCH 23 L MCHC RDW 17.5 H Plt Count Lymph % (Auto) 11.1 L [place] % (Auto) Lymph # [place] # Baso # Seg Neutrophils % 84.3 H Seg Neuts % (Manual) Lymphocytes % (Manual) Monocytes % (Manual) Eosinophils % (Manual) Basophils % (Manual) Nucleated RBC % Seg Neutrophils # 8.9 H Seg Neutrophils # Man Lymphocytes # (Manual) Monocytes # (Manual) Eosinophils # (Manual) Basophils # (Manual) PT INR Fibrinogen dRVVT Confirm Interp Factor V Activity POC ABG pH POC ABG pCO2 POC ABG pO2 ABG pO2 ABG HCO3 ABG Base Excess ABG Hemoglobin Oxyhemoglobin Sodium 135 L Potassium 2.9 L* Chloride 97.2 L Carbon Dioxide 19 L BUN Creatinine 1.7 H Glucose 170 H POC Glucose 152 H Lactic Acid Calcium Phosphorus Magnesium Direct Bilirubin AST ALT Alkaline Phosphatase Lactate Dehydrogenase Troponin T C-Reactive Protein Total Protein Albumin Prealbumin Triglycerides 160 H Cholesterol LDL Cholesterol Direct HDL Cholesterol 31 L Urine pH Urine WBC (Auto) Urine Creatinine Urine Total Protein Fluid Total Protein Vancomycin Trough Rheumatoid Factor Complement C4 Miscellaneous Test Crossmatch 09/04/16 09/04/16 09/04/16 11:34 17:46 23:29 WBC RBC Hgb Hct MCV MCH MCHC RDW Plt Count Lymph % (Auto) [place] % (Auto) Lymph # [place] # Baso # Seg Neutrophils % Seg Neuts % (Manual) Lymphocytes % (Manual) Monocytes % (Manual) Eosinophils % (Manual) Basophils % (Manual) Nucleated RBC % Seg Neutrophils # Seg Neutrophils # Man Lymphocytes # (Manual) Monocytes # (Manual) Eosinophils # (Manual) Basophils # (Manual) PT INR Fibrinogen dRVVT Confirm Interp Factor V Activity POC ABG pH POC ABG pCO2 POC ABG pO2 ABG pO2 ABG HCO3 ABG Base Excess ABG Hemoglobin Oxyhemoglobin Sodium Potassium Chloride Carbon Dioxide BUN Creatinine Glucose POC Glucose 165 H 210 H 139 H Lactic Acid Calcium Phosphorus Magnesium Direct Bilirubin AST ALT Alkaline Phosphatase Lactate Dehydrogenase Troponin T C-Reactive Protein Total Protein Albumin Prealbumin Triglycerides Cholesterol LDL Cholesterol Direct HDL Cholesterol Urine pH Urine WBC (Auto) Urine Creatinine Urine Total Protein Fluid Total Protein Vancomycin Trough Rheumatoid Factor Complement C4 Miscellaneous Test Crossmatch 09/05/16 09/05/16 09/05/16 04:05 04:05 05:38 WBC RBC Hgb Hct MCV 76 L D MCH 23 L MCHC RDW 17.8 H Plt Count Lymph % (Auto) [place] % (Auto) Lymph # [place] # Baso # Seg Neutrophils % Seg Neuts % (Manual) Lymphocytes % (Manual) Monocytes % (Manual) Eosinophils % (Manual) Basophils % (Manual) Nucleated RBC % Seg Neutrophils # Seg Neutrophils # Man Lymphocytes # (Manual) Monocytes # (Manual) Eosinophils # (Manual) Basophils # (Manual) PT INR Fibrinogen dRVVT Confirm Interp Factor V Activity POC ABG pH POC ABG pCO2 POC ABG pO2 ABG pO2 ABG HCO3 ABG Base Excess ABG Hemoglobin Oxyhemoglobin Sodium 134 L Potassium Chloride Carbon Dioxide 18 L BUN Creatinine 1.8 H Glucose 192 H POC Glucose 175 H Lactic Acid Calcium Phosphorus Magnesium Direct Bilirubin AST ALT Alkaline Phosphatase Lactate Dehydrogenase Troponin T C-Reactive Protein Total Protein Albumin Prealbumin Triglycerides Cholesterol LDL Cholesterol Direct HDL Cholesterol Urine pH Urine WBC (Auto) Urine Creatinine Urine Total Protein Fluid Total Protein Vancomycin Trough Rheumatoid Factor Complement C4 Miscellaneous Test Crossmatch 09/05/16 09/05/16 09/05/16 11:38 17:48 23:22 WBC RBC Hgb Hct MCV MCH MCHC RDW Plt Count Lymph % (Auto) [place] % (Auto) Lymph # [place] # Baso # Seg Neutrophils % Seg Neuts % (Manual) Lymphocytes % (Manual) Monocytes % (Manual) Eosinophils % (Manual) Basophils % (Manual) Nucleated RBC % Seg Neutrophils # Seg Neutrophils # Man Lymphocytes # (Manual) Monocytes # (Manual) Eosinophils # (Manual) Basophils # (Manual) PT INR Fibrinogen dRVVT Confirm Interp Factor V Activity POC ABG pH POC ABG pCO2 POC ABG pO2 ABG pO2 ABG HCO3 ABG Base Excess ABG Hemoglobin Oxyhemoglobin Sodium Potassium Chloride Carbon Dioxide BUN Creatinine Glucose POC Glucose 164 H 186 H 195 H Lactic Acid Calcium Phosphorus Magnesium Direct Bilirubin AST ALT Alkaline Phosphatase Lactate Dehydrogenase Troponin T C-Reactive Protein Total Protein Albumin Prealbumin Triglycerides Cholesterol LDL Cholesterol Direct HDL Cholesterol Urine pH Urine WBC (Auto) Urine Creatinine Urine Total Protein Fluid Total Protein Vancomycin Trough Rheumatoid Factor Complement C4 Miscellaneous Test Crossmatch 09/06/16 09/06/16 09/06/16 04:12 05:59 07:32 WBC RBC Hgb Hct MCV MCH MCHC RDW Plt Count Lymph % (Auto) [place] % (Auto) Lymph # [place] # Baso # Seg Neutrophils % Seg Neuts % (Manual) Lymphocytes % (Manual) Monocytes % (Manual) Eosinophils % (Manual) Basophils % (Manual) Nucleated RBC % Seg Neutrophils # Seg Neutrophils # Man Lymphocytes # (Manual) Monocytes # (Manual) Eosinophils # (Manual) Basophils # (Manual) PT INR Fibrinogen dRVVT Confirm Interp Factor V Activity POC ABG pH 7.514 H POC ABG pCO2 29.1 L POC ABG pO2 72 L ABG pO2 ABG HCO3 ABG Base Excess ABG Hemoglobin Oxyhemoglobin Sodium 133 L Potassium 3.4 L Chloride 94.9 L Carbon Dioxide 19 L BUN 30 H Creatinine 2.1 H Glucose 139 H POC Glucose 146 H Lactic Acid Calcium Phosphorus Magnesium Direct Bilirubin AST ALT Alkaline Phosphatase Lactate Dehydrogenase Troponin T C-Reactive Protein Total Protein Albumin Prealbumin Triglycerides Cholesterol LDL Cholesterol Direct HDL Cholesterol Urine pH Urine WBC (Auto) Urine Creatinine Urine Total Protein Fluid Total Protein Vancomycin Trough Rheumatoid Factor Complement C4 Miscellaneous Test Crossmatch 09/06/16 09/06/16 09/06/16 11:57 17:58 19:02 WBC RBC Hgb Hct MCV MCH MCHC RDW Plt Count Lymph % (Auto) [place] % (Auto) Lymph # [place] # Baso # Seg Neutrophils % Seg Neuts % (Manual) Lymphocytes % (Manual) Monocytes % (Manual) Eosinophils % (Manual) Basophils % (Manual) Nucleated RBC % Seg Neutrophils # Seg Neutrophils # Man Lymphocytes # (Manual) Monocytes # (Manual) Eosinophils # (Manual) Basophils # (Manual) PT INR Fibrinogen dRVVT Confirm Interp Factor V Activity POC ABG pH 7.465 H POC ABG pCO2 32.0 L POC ABG pO2 ABG pO2 ABG HCO3 ABG Base Excess ABG Hemoglobin Oxyhemoglobin Sodium Potassium Chloride Carbon Dioxide BUN Creatinine Glucose POC Glucose 165 H 160 H Lactic Acid Calcium Phosphorus Magnesium Direct Bilirubin AST ALT Alkaline Phosphatase Lactate Dehydrogenase Troponin T C-Reactive Protein Total Protein Albumin Prealbumin Triglycerides Cholesterol LDL Cholesterol Direct HDL Cholesterol Urine pH Urine WBC (Auto) Urine Creatinine Urine Total Protein Fluid Total Protein Vancomycin Trough Rheumatoid Factor Complement C4 Miscellaneous Test Crossmatch 09/06/16 09/07/16 09/07/16 23:45 02:47 02:47 WBC RBC Hgb Hct MCV MCH MCHC RDW Plt Count Lymph % (Auto) [place] % (Auto) Lymph # [place] # Baso # Seg Neutrophils % Seg Neuts % (Manual) Lymphocytes % (Manual) Monocytes % (Manual) Eosinophils % (Manual) Basophils % (Manual) Nucleated RBC % Seg Neutrophils # Seg Neutrophils # Man Lymphocytes # (Manual) Monocytes # (Manual) Eosinophils # (Manual) Basophils # (Manual) PT INR Fibrinogen dRVVT Confirm Interp Factor V Activity POC ABG pH POC ABG pCO2 POC ABG pO2 ABG pO2 ABG HCO3 ABG Base Excess ABG Hemoglobin Oxyhemoglobin Sodium Potassium Chloride Carbon Dioxide BUN Creatinine Glucose POC Glucose 204 H Lactic Acid Calcium Phosphorus Magnesium Direct Bilirubin AST ALT Alkaline Phosphatase Lactate Dehydrogenase Troponin T C-Reactive Protein Total Protein Albumin Prealbumin Triglycerides Cholesterol LDL Cholesterol Direct HDL Cholesterol Urine pH Urine WBC (Auto) 68.0 H Urine Creatinine 106.1 H Urine Total Protein Fluid Total Protein Vancomycin Trough Rheumatoid Factor Complement C4 Miscellaneous Test Crossmatch 09/07/16 09/07/16 09/07/16 04:50 06:19 06:39 WBC RBC Hgb Hct MCV MCH MCHC RDW Plt Count Lymph % (Auto) [place] % (Auto) Lymph # [place] # Baso # Seg Neutrophils % Seg Neuts % (Manual) Lymphocytes % (Manual) Monocytes % (Manual) Eosinophils % (Manual) Basophils % (Manual) Nucleated RBC % Seg Neutrophils # Seg Neutrophils # Man Lymphocytes # (Manual) Monocytes # (Manual) Eosinophils # (Manual) Basophils # (Manual) PT INR Fibrinogen dRVVT Confirm Interp Factor V Activity POC ABG pH 7.457 H POC ABG pCO2 32.1 L POC ABG pO2 76 L ABG pO2 ABG HCO3 ABG Base Excess ABG Hemoglobin Oxyhemoglobin Sodium 132 L Potassium Chloride 94.7 L Carbon Dioxide BUN 53 H Creatinine 2.9 H Glucose 151 H POC Glucose 149 H Lactic Acid Calcium Phosphorus Magnesium Direct Bilirubin AST ALT Alkaline Phosphatase Lactate Dehydrogenase Troponin T C-Reactive Protein Total Protein Albumin Prealbumin Triglycerides Cholesterol LDL Cholesterol Direct HDL Cholesterol Urine pH Urine WBC (Auto) Urine Creatinine Urine Total Protein Fluid Total Protein Vancomycin Trough Rheumatoid Factor Complement C4 Miscellaneous Test Crossmatch 09/07/16 09/07/16 09/07/16 09:20 11:43 11:43 WBC 19.4 H RBC Hgb 8.3 L Hct 26.4 L D MCV 72 L D MCH 22 L MCHC RDW 17.9 H Plt Count Lymph % (Auto) 8.5 L [place] % (Auto) Lymph # [place] # 1.0 H Baso # Seg Neutrophils % 85.8 H Seg Neuts % (Manual) Lymphocytes % (Manual) Monocytes % (Manual) Eosinophils % (Manual) Basophils % (Manual) Nucleated RBC % Seg Neutrophils # 16.6 H Seg Neutrophils # Man Lymphocytes # (Manual) Monocytes # (Manual) Eosinophils # (Manual) Basophils # (Manual) PT INR Fibrinogen dRVVT Confirm Interp Factor V Activity POC ABG pH POC ABG pCO2 POC ABG pO2 ABG pO2 ABG HCO3 ABG Base Excess ABG Hemoglobin Oxyhemoglobin Sodium 134 L Potassium Chloride 97.2 L Carbon Dioxide 20 L BUN 58 H Creatinine 2.9 H Glucose 147 H POC Glucose Lactic Acid Calcium Phosphorus 2.40 L Magnesium 2.40 H Direct Bilirubin AST ALT Alkaline Phosphatase Lactate Dehydrogenase Troponin T C-Reactive Protein Total Protein 5.8 L Albumin 2.2 L Prealbumin Triglycerides Cholesterol LDL Cholesterol Direct HDL Cholesterol Urine pH Urine WBC (Auto) Urine Creatinine Urine Total Protein Fluid Total Protein Vancomycin Trough Rheumatoid Factor Complement C4 58 H Miscellaneous Test Crossmatch 09/07/16 09/07/16 09/07/16 11:50 16:00 17:31 WBC RBC Hgb Hct MCV MCH MCHC RDW Plt Count Lymph % (Auto) [place] % (Auto) Lymph # [place] # Baso # Seg Neutrophils % Seg Neuts % (Manual) Lymphocytes % (Manual) Monocytes % (Manual) Eosinophils % (Manual) Basophils % (Manual) Nucleated RBC % Seg Neutrophils # Seg Neutrophils # Man Lymphocytes # (Manual) Monocytes # (Manual) Eosinophils # (Manual) Basophils # (Manual) PT INR Fibrinogen dRVVT Confirm Interp Factor V Activity POC ABG pH POC ABG pCO2 POC ABG pO2 158 H ABG pO2 ABG HCO3 ABG Base Excess ABG Hemoglobin Oxyhemoglobin Sodium Potassium Chloride Carbon Dioxide BUN Creatinine Glucose POC Glucose 175 H Lactic Acid Calcium Phosphorus Magnesium Direct Bilirubin AST ALT Alkaline Phosphatase Lactate Dehydrogenase Troponin T C-Reactive Protein Total Protein Albumin Prealbumin Triglycerides Cholesterol LDL Cholesterol Direct HDL Cholesterol Urine pH Urine WBC (Auto) Urine Creatinine 66.3 H Urine Total Protein Fluid Total Protein Vancomycin Trough Rheumatoid Factor Complement C4 Miscellaneous Test Crossmatch 09/07/16 09/08/16 09/08/16 23:50 05:46 06:18 WBC 17.8 H RBC 3.58 L Hgb 8.1 L Hct 25.5 L MCV 71 L MCH 23 L MCHC RDW 18.4 H Plt Count Lymph % (Auto) [place] % (Auto) Lymph # [place] # Baso # Seg Neutrophils % Seg Neuts % (Manual) 92.0 H Lymphocytes % (Manual) 6.0 L Monocytes % (Manual) Eosinophils % (Manual) Basophils % (Manual) Nucleated RBC % Seg Neutrophils # Seg Neutrophils # Man 16.4 H Lymphocytes # (Manual) 1.1 L Monocytes # (Manual) Eosinophils # (Manual) Basophils # (Manual) PT INR Fibrinogen dRVVT Confirm Interp Factor V Activity POC ABG pH POC ABG pCO2 34.3 L POC ABG pO2 71 L ABG pO2 ABG HCO3 ABG Base Excess ABG Hemoglobin Oxyhemoglobin Sodium Potassium Chloride Carbon Dioxide BUN Creatinine Glucose POC Glucose 216 H Lactic Acid Calcium Phosphorus Magnesium Direct Bilirubin AST ALT Alkaline Phosphatase Lactate Dehydrogenase Troponin T C-Reactive Protein Total Protein Albumin Prealbumin Triglycerides Cholesterol LDL Cholesterol Direct HDL Cholesterol Urine pH Urine WBC (Auto) Urine Creatinine Urine Total Protein Fluid Total Protein Vancomycin Trough Rheumatoid Factor Complement C4 Miscellaneous Test Crossmatch 09/08/16 09/08/16 09/08/16 06:18 06:51 10:55 WBC RBC Hgb Hct MCV MCH MCHC RDW Plt Count Lymph % (Auto) [place] % (Auto) Lymph # [place] # Baso # Seg Neutrophils % Seg Neuts % (Manual) Lymphocytes % (Manual) Monocytes % (Manual) Eosinophils % (Manual) Basophils % (Manual) Nucleated RBC % Seg Neutrophils # Seg Neutrophils # Man Lymphocytes # (Manual) Monocytes # (Manual) Eosinophils # (Manual) Basophils # (Manual) PT INR Fibrinogen dRVVT Confirm Interp Factor V Activity POC ABG pH POC ABG pCO2 POC ABG pO2 ABG pO2 ABG HCO3 ABG Base Excess ABG Hemoglobin Oxyhemoglobin Sodium 133 L Potassium Chloride 96.9 L Carbon Dioxide 20 L BUN 63 H Creatinine 2.7 H Glucose 195 H POC Glucose 204 H 169 H Lactic Acid Calcium Phosphorus Magnesium Direct Bilirubin AST ALT Alkaline Phosphatase Lactate Dehydrogenase Troponin T C-Reactive Protein Total Protein Albumin Prealbumin Triglycerides Cholesterol LDL Cholesterol Direct HDL Cholesterol Urine pH Urine WBC (Auto) Urine Creatinine Urine Total Protein Fluid Total Protein Vancomycin Trough Rheumatoid Factor Complement C4 Miscellaneous Test Crossmatch 09/08/16 09/08/16 09/08/16 11:48 11:48 11:48 WBC RBC Hgb Hct MCV MCH MCHC RDW Plt Count Lymph % (Auto) [place] % (Auto) Lymph # [place] # Baso # Seg Neutrophils % Seg Neuts % (Manual) Lymphocytes % (Manual) Monocytes % (Manual) Eosinophils % (Manual) Basophils % (Manual) Nucleated RBC % Seg Neutrophils # Seg Neutrophils # Man Lymphocytes # (Manual) Monocytes # (Manual) Eosinophils # (Manual) Basophils # (Manual) PT INR Fibrinogen 750 H dRVVT Confirm Interp Factor V Activity POC ABG pH POC ABG pCO2 POC ABG pO2 ABG pO2 ABG HCO3 ABG Base Excess ABG Hemoglobin Oxyhemoglobin Sodium Potassium Chloride Carbon Dioxide BUN Creatinine Glucose POC Glucose Lactic Acid Calcium Phosphorus Magnesium Direct Bilirubin AST ALT Alkaline Phosphatase Lactate Dehydrogenase Troponin T C-Reactive Protein 15.70 H Total Protein Albumin Prealbumin Triglycerides Cholesterol LDL Cholesterol Direct HDL Cholesterol Urine pH Urine WBC (Auto) Urine Creatinine Urine Total Protein Fluid Total Protein Vancomycin Trough Rheumatoid Factor 24 H Complement C4 Miscellaneous Test Crossmatch 09/08/16 09/08/16 09/09/16 15:35 18:25 00:24 WBC RBC Hgb Hct MCV MCH MCHC RDW Plt Count Lymph % (Auto) [place] % (Auto) Lymph # [place] # Baso # Seg Neutrophils % Seg Neuts % (Manual) Lymphocytes % (Manual) Monocytes % (Manual) Eosinophils % (Manual) Basophils % (Manual) Nucleated RBC % Seg Neutrophils # Seg Neutrophils # Man Lymphocytes # (Manual) Monocytes # (Manual) Eosinophils # (Manual) Basophils # (Manual) PT INR Fibrinogen dRVVT Confirm Interp Factor V Activity 182 H POC ABG pH POC ABG pCO2 POC ABG pO2 ABG pO2 ABG HCO3 ABG Base Excess ABG Hemoglobin Oxyhemoglobin Sodium Potassium Chloride Carbon Dioxide BUN Creatinine Glucose POC Glucose 184 H 216 H Lactic Acid Calcium Phosphorus Magnesium Direct Bilirubin AST ALT Alkaline Phosphatase Lactate Dehydrogenase Troponin T C-Reactive Protein Total Protein Albumin Prealbumin Triglycerides Cholesterol LDL Cholesterol Direct HDL Cholesterol Urine pH Urine WBC (Auto) Urine Creatinine Urine Total Protein Fluid Total Protein Vancomycin Trough Rheumatoid Factor Complement C4 Miscellaneous Test Crossmatch 09/09/16 09/09/16 09/09/16 03:00 03:00 04:04 WBC 27.9 H RBC Hgb 8.7 L Hct 28.1 L MCV 72 L MCH 22 L MCHC RDW 18.4 H Plt Count 485 H Lymph % (Auto) [place] % (Auto) Lymph # [place] # Baso # Seg Neutrophils % Seg Neuts % (Manual) 77.0 H Lymphocytes % (Manual) 9.0 L Monocytes % (Manual) Eosinophils % (Manual) Basophils % (Manual) Nucleated RBC % Seg Neutrophils # Seg Neutrophils # Man 21.5 H Lymphocytes # (Manual) Monocytes # (Manual) 2.0 H Eosinophils # (Manual) Basophils # (Manual) PT INR Fibrinogen dRVVT Confirm Interp Factor V Activity POC ABG pH POC ABG pCO2 POC ABG pO2 121 H ABG pO2 ABG HCO3 ABG Base Excess ABG Hemoglobin Oxyhemoglobin Sodium 135 L Potassium Chloride 96.3 L Carbon Dioxide 21 L BUN 83 H Creatinine 3.0 H Glucose 135 H POC Glucose Lactic Acid Calcium Phosphorus Magnesium Direct Bilirubin AST ALT Alkaline Phosphatase Lactate Dehydrogenase Troponin T C-Reactive Protein Total Protein Albumin Prealbumin Triglycerides Cholesterol LDL Cholesterol Direct HDL Cholesterol Urine pH Urine WBC (Auto) Urine Creatinine Urine Total Protein Fluid Total Protein Vancomycin Trough Rheumatoid Factor Complement C4 Miscellaneous Test Crossmatch 09/09/16 09/09/16 09/09/16 05:41 11:55 14:13 WBC RBC Hgb Hct MCV MCH MCHC RDW Plt Count Lymph % (Auto) [place] % (Auto) Lymph # [place] # Baso # Seg Neutrophils % Seg Neuts % (Manual) Lymphocytes % (Manual) Monocytes % (Manual) Eosinophils % (Manual) Basophils % (Manual) Nucleated RBC % Seg Neutrophils # Seg Neutrophils # Man Lymphocytes # (Manual) Monocytes # (Manual) Eosinophils # (Manual) Basophils # (Manual) PT INR Fibrinogen dRVVT Confirm Interp Factor V Activity POC ABG pH POC ABG pCO2 POC ABG pO2 ABG pO2 ABG HCO3 ABG Base Excess ABG Hemoglobin Oxyhemoglobin Sodium Potassium Chloride Carbon Dioxide BUN Creatinine Glucose POC Glucose 155 H 186 H Lactic Acid Calcium Phosphorus Magnesium Direct Bilirubin AST ALT Alkaline Phosphatase Lactate Dehydrogenase Troponin T C-Reactive Protein Total Protein Albumin Prealbumin Triglycerides Cholesterol LDL Cholesterol Direct HDL Cholesterol Urine pH Urine WBC (Auto) 25.0 H Urine Creatinine Urine Total Protein Fluid Total Protein Vancomycin Trough Rheumatoid Factor Complement C4 Miscellaneous Test Crossmatch 09/09/16 09/09/16 09/10/16 17:33 23:13 05:09 WBC RBC Hgb Hct MCV MCH MCHC RDW Plt Count Lymph % (Auto) [place] % (Auto) Lymph # [place] # Baso # Seg Neutrophils % Seg Neuts % (Manual) Lymphocytes % (Manual) Monocytes % (Manual) Eosinophils % (Manual) Basophils % (Manual) Nucleated RBC % Seg Neutrophils # Seg Neutrophils # Man Lymphocytes # (Manual) Monocytes # (Manual) Eosinophils # (Manual) Basophils # (Manual) PT INR Fibrinogen dRVVT Confirm Interp Factor V Activity POC ABG pH POC ABG pCO2 POC ABG pO2 74 L ABG pO2 ABG HCO3 ABG Base Excess ABG Hemoglobin Oxyhemoglobin Sodium Potassium Chloride Carbon Dioxide BUN Creatinine Glucose POC Glucose 211 H 215 H Lactic Acid Calcium Phosphorus Magnesium Direct Bilirubin AST ALT Alkaline Phosphatase Lactate Dehydrogenase Troponin T C-Reactive Protein Total Protein Albumin Prealbumin Triglycerides Cholesterol LDL Cholesterol Direct HDL Cholesterol Urine pH Urine WBC (Auto) Urine Creatinine Urine Total Protein Fluid Total Protein Vancomycin Trough Rheumatoid Factor Complement C4 Miscellaneous Test Crossmatch 09/10/16 09/10/16 09/10/16 05:17 05:17 11:31 WBC 15.8 H RBC 3.25 L Hgb 7.3 L Hct 22.9 L MCV 71 L MCH 23 L MCHC RDW 18.4 H Plt Count Lymph % (Auto) [place] % (Auto) Lymph # [place] # Baso # Seg Neutrophils % Seg Neuts % (Manual) 91.0 H Lymphocytes % (Manual) 4.0 L Monocytes % (Manual) Eosinophils % (Manual) Basophils % (Manual) Nucleated RBC % Seg Neutrophils # Seg Neutrophils # Man 14.4 H Lymphocytes # (Manual) 0.6 L Monocytes # (Manual) Eosinophils # (Manual) Basophils # (Manual) PT INR Fibrinogen dRVVT Confirm Interp Factor V Activity POC ABG pH POC ABG pCO2 POC ABG pO2 ABG pO2 ABG HCO3 ABG Base Excess ABG Hemoglobin Oxyhemoglobin Sodium Potassium Chloride Carbon Dioxide 21 L BUN 93 H Creatinine 2.9 H Glucose 146 H POC Glucose 188 H Lactic Acid Calcium 8.1 L Phosphorus Magnesium Direct Bilirubin AST ALT Alkaline Phosphatase Lactate Dehydrogenase Troponin T C-Reactive Protein Total Protein Albumin Prealbumin Triglycerides Cholesterol LDL Cholesterol Direct HDL Cholesterol Urine pH Urine WBC (Auto) Urine Creatinine Urine Total Protein Fluid Total Protein Vancomycin Trough Rheumatoid Factor Complement C4 Miscellaneous Test Crossmatch 09/10/16 09/10/16 09/10/16 13:17 17:20 23:32 WBC RBC Hgb Hct MCV MCH MCHC RDW Plt Count Lymph % (Auto) [place] % (Auto) Lymph # [place] # Baso # Seg Neutrophils % Seg Neuts % (Manual) Lymphocytes % (Manual) Monocytes % (Manual) Eosinophils % (Manual) Basophils % (Manual) Nucleated RBC % Seg Neutrophils # Seg Neutrophils # Man Lymphocytes # (Manual) Monocytes # (Manual) Eosinophils # (Manual) Basophils # (Manual) PT INR Fibrinogen dRVVT Confirm Interp Factor V Activity POC ABG pH POC ABG pCO2 POC ABG pO2 ABG pO2 ABG HCO3 ABG Base Excess ABG Hemoglobin Oxyhemoglobin Sodium Potassium Chloride Carbon Dioxide BUN Creatinine Glucose POC Glucose 199 H 186 H Lactic Acid Calcium Phosphorus Magnesium Direct Bilirubin AST ALT Alkaline Phosphatase Lactate Dehydrogenase Troponin T C-Reactive Protein Total Protein Albumin Prealbumin Triglycerides Cholesterol LDL Cholesterol Direct HDL Cholesterol Urine pH Urine WBC (Auto) Urine Creatinine Urine Total Protein Fluid Total Protein Vancomycin Trough Rheumatoid Factor Complement C4 Miscellaneous Test Crossmatch See Detail 09/11/16 09/11/16 09/11/16 05:10 05:10 05:17 WBC 28.4 H RBC Hgb 9.2 L Hct 29.3 L D MCV 73 L MCH 23 L MCHC RDW 18.9 H Plt Count 452 H Lymph % (Auto) [place] % (Auto) Lymph # [place] # Baso # Seg Neutrophils % Seg Neuts % (Manual) 89.5 H Lymphocytes % (Manual) 2.0 L Monocytes % (Manual) Eosinophils % (Manual) Basophils % (Manual) Nucleated RBC % Seg Neutrophils # Seg Neutrophils # Man 25.4 H Lymphocytes # (Manual) 0.6 L Monocytes # (Manual) 1.3 H Eosinophils # (Manual) Basophils # (Manual) PT INR Fibrinogen dRVVT Confirm Interp Factor V Activity POC ABG pH POC ABG pCO2 POC ABG pO2 ABG pO2 ABG HCO3 ABG Base Excess ABG Hemoglobin Oxyhemoglobin Sodium 136 L Potassium Chloride Carbon Dioxide 18 L BUN 107 H Creatinine 2.6 H Glucose 187 H POC Glucose 230 H Lactic Acid Calcium 8.3 L Phosphorus Magnesium Direct Bilirubin AST ALT Alkaline Phosphatase Lactate Dehydrogenase Troponin T C-Reactive Protein Total Protein Albumin Prealbumin Triglycerides Cholesterol LDL Cholesterol Direct HDL Cholesterol Urine pH Urine WBC (Auto) Urine Creatinine Urine Total Protein Fluid Total Protein Vancomycin Trough Rheumatoid Factor Complement C4 Miscellaneous Test Crossmatch 09/11/16 09/11/16 09/11/16 05:55 12:02 17:32 WBC RBC Hgb Hct MCV MCH MCHC RDW Plt Count Lymph % (Auto) [place] % (Auto) Lymph # [place] # Baso # Seg Neutrophils % Seg Neuts % (Manual) Lymphocytes % (Manual) Monocytes % (Manual) Eosinophils % (Manual) Basophils % (Manual) Nucleated RBC % Seg Neutrophils # Seg Neutrophils # Man Lymphocytes # (Manual) Monocytes # (Manual) Eosinophils # (Manual) Basophils # (Manual) PT INR Fibrinogen dRVVT Confirm Interp Factor V Activity POC ABG pH POC ABG pCO2 33.8 L POC ABG pO2 ABG pO2 ABG HCO3 ABG Base Excess ABG Hemoglobin Oxyhemoglobin Sodium Potassium Chloride Carbon Dioxide BUN Creatinine Glucose POC Glucose 191 H 239 H Lactic Acid Calcium Phosphorus Magnesium Direct Bilirubin AST ALT Alkaline Phosphatase Lactate Dehydrogenase Troponin T C-Reactive Protein Total Protein Albumin Prealbumin Triglycerides Cholesterol LDL Cholesterol Direct HDL Cholesterol Urine pH Urine WBC (Auto) Urine Creatinine Urine Total Protein Fluid Total Protein Vancomycin Trough Rheumatoid Factor Complement C4 Miscellaneous Test Crossmatch 09/11/16 09/12/16 09/12/16 23:52 05:09 05:32 WBC RBC Hgb Hct MCV MCH MCHC RDW Plt Count Lymph % (Auto) [place] % (Auto) Lymph # [place] # Baso # Seg Neutrophils % Seg Neuts % (Manual) Lymphocytes % (Manual) Monocytes % (Manual) Eosinophils % (Manual) Basophils % (Manual) Nucleated RBC % Seg Neutrophils # Seg Neutrophils # Man Lymphocytes # (Manual) Monocytes # (Manual) Eosinophils # (Manual) Basophils # (Manual) PT INR Fibrinogen dRVVT Confirm Interp Factor V Activity POC ABG pH POC ABG pCO2 34.6 L POC ABG pO2 ABG pO2 ABG HCO3 ABG Base Excess ABG Hemoglobin Oxyhemoglobin Sodium Potassium Chloride Carbon Dioxide BUN Creatinine Glucose POC Glucose 265 H 184 H Lactic Acid Calcium Phosphorus Magnesium Direct Bilirubin AST ALT Alkaline Phosphatase Lactate Dehydrogenase Troponin T C-Reactive Protein Total Protein Albumin Prealbumin Triglycerides Cholesterol LDL Cholesterol Direct HDL Cholesterol Urine pH Urine WBC (Auto) Urine Creatinine Urine Total Protein Fluid Total Protein Vancomycin Trough Rheumatoid Factor Complement C4 Miscellaneous Test Crossmatch 09/12/16 09/12/16 09/12/16 06:45 06:45 07:22 WBC 31.7 H RBC 3.54 L Hgb 8.3 L Hct 25.9 L MCV 73 L MCH 23 L MCHC RDW 18.9 H Plt Count Lymph % (Auto) [place] % (Auto) Lymph # [place] # Baso # Seg Neutrophils % Seg Neuts % (Manual) 88.5 H Lymphocytes % (Manual) 4.5 L Monocytes % (Manual) Eosinophils % (Manual) Basophils % (Manual) Nucleated RBC % Seg Neutrophils # Seg Neutrophils # Man 28.1 H Lymphocytes # (Manual) Monocytes # (Manual) 1.0 H Eosinophils # (Manual) Basophils # (Manual) PT INR Fibrinogen dRVVT Confirm Interp Factor V Activity POC ABG pH POC ABG pCO2 POC ABG pO2 ABG pO2 ABG HCO3 ABG Base Excess ABG Hemoglobin Oxyhemoglobin Sodium Potassium Chloride Carbon Dioxide 20 L BUN 115 H Creatinine 2.7 H Glucose 165 H POC Glucose Lactic Acid Calcium 8.0 L Phosphorus Magnesium Direct Bilirubin AST ALT Alkaline Phosphatase Lactate Dehydrogenase Troponin T C-Reactive Protein Total Protein Albumin Prealbumin Triglycerides 217 H Cholesterol LDL Cholesterol Direct HDL Cholesterol Urine pH Urine WBC (Auto) Urine Creatinine Urine Total Protein Fluid Total Protein Vancomycin Trough Rheumatoid Factor Complement C4 Miscellaneous Test Crossmatch 09/12/16 09/12/16 09/12/16 07:22 09:59 12:21 WBC RBC Hgb Hct MCV MCH MCHC RDW Plt Count Lymph % (Auto) [place] % (Auto) Lymph # [place] # Baso # Seg Neutrophils % Seg Neuts % (Manual) Lymphocytes % (Manual) Monocytes % (Manual) Eosinophils % (Manual) Basophils % (Manual) Nucleated RBC % Seg Neutrophils # Seg Neutrophils # Man Lymphocytes # (Manual) Monocytes # (Manual) Eosinophils # (Manual) Basophils # (Manual) PT INR Fibrinogen dRVVT Confirm Interp Positive H Factor V Activity POC ABG pH POC ABG pCO2 POC ABG pO2 ABG pO2 ABG HCO3 ABG Base Excess ABG Hemoglobin Oxyhemoglobin Sodium Potassium Chloride Carbon Dioxide BUN Creatinine Glucose POC Glucose 224 H Lactic Acid Calcium Phosphorus Magnesium Direct Bilirubin AST ALT Alkaline Phosphatase Lactate Dehydrogenase Troponin T C-Reactive Protein 1.70 H Total Protein Albumin Prealbumin Triglycerides Cholesterol LDL Cholesterol Direct HDL Cholesterol Urine pH Urine WBC (Auto) Urine Creatinine Urine Total Protein Fluid Total Protein Vancomycin Trough Rheumatoid Factor Complement C4 Miscellaneous Test Crossmatch 09/12/16 09/12/16 09/13/16 16:51 23:28 04:00 WBC 45.0 H* RBC Hgb 9.4 L Hct MCV 75 L MCH 23 L MCHC RDW 19.0 H Plt Count 470 H Lymph % (Auto) [place] % (Auto) Lymph # [place] # Baso # Seg Neutrophils % Seg Neuts % (Manual) 89.0 H Lymphocytes % (Manual) 5.0 L Monocytes % (Manual) Eosinophils % (Manual) Basophils % (Manual) Nucleated RBC % Seg Neutrophils # Seg Neutrophils # Man 40.1 H Lymphocytes # (Manual) Monocytes # (Manual) Eosinophils # (Manual) Basophils # (Manual) PT INR Fibrinogen dRVVT Confirm Interp Factor V Activity POC ABG pH POC ABG pCO2 POC ABG pO2 ABG pO2 ABG HCO3 ABG Base Excess ABG Hemoglobin Oxyhemoglobin Sodium Potassium Chloride Carbon Dioxide BUN Creatinine Glucose POC Glucose 169 H 150 H Lactic Acid Calcium Phosphorus Magnesium Direct Bilirubin AST ALT Alkaline Phosphatase Lactate Dehydrogenase Troponin T C-Reactive Protein Total Protein Albumin Prealbumin Triglycerides Cholesterol LDL Cholesterol Direct HDL Cholesterol Urine pH Urine WBC (Auto) Urine Creatinine Urine Total Protein Fluid Total Protein Vancomycin Trough Rheumatoid Factor Complement C4 Miscellaneous Test Crossmatch 09/13/16 09/13/16 09/13/16 04:00 11:26 17:31 WBC RBC Hgb Hct MCV MCH MCHC RDW Plt Count Lymph % (Auto) [place] % (Auto) Lymph # [place] # Baso # Seg Neutrophils % Seg Neuts % (Manual) Lymphocytes % (Manual) Monocytes % (Manual) Eosinophils % (Manual) Basophils % (Manual) Nucleated RBC % Seg Neutrophils # Seg Neutrophils # Man Lymphocytes # (Manual) Monocytes # (Manual) Eosinophils # (Manual) Basophils # (Manual) PT INR Fibrinogen dRVVT Confirm Interp Factor V Activity POC ABG pH POC ABG pCO2 POC ABG pO2 ABG pO2 ABG HCO3 ABG Base Excess ABG Hemoglobin Oxyhemoglobin Sodium Potassium Chloride Carbon Dioxide 20 L BUN 116 H Creatinine 3.0 H Glucose 172 H POC Glucose 140 H 183 H Lactic Acid Calcium Phosphorus Magnesium Direct Bilirubin AST ALT Alkaline Phosphatase Lactate Dehydrogenase Troponin T C-Reactive Protein Total Protein 6.2 L Albumin 2.9 L Prealbumin Triglycerides Cholesterol LDL Cholesterol Direct HDL Cholesterol Urine pH Urine WBC (Auto) Urine Creatinine Urine Total Protein Fluid Total Protein Vancomycin Trough Rheumatoid Factor Complement C4 Miscellaneous Test Crossmatch 09/13/16 09/14/16 09/14/16 23:23 04:06 04:07 WBC 29.4 H RBC Hgb 8.9 L Hct 27.3 L MCV 75 L MCH 24 L MCHC RDW 19.1 H Plt Count Lymph % (Auto) [place] % (Auto) Lymph # [place] # Baso # Seg Neutrophils % Seg Neuts % (Manual) 84.0 H Lymphocytes % (Manual) 6.0 L Monocytes % (Manual) 9.0 H Eosinophils % (Manual) Basophils % (Manual) Nucleated RBC % Seg Neutrophils # Seg Neutrophils # Man 24.7 H Lymphocytes # (Manual) Monocytes # (Manual) 2.6 H Eosinophils # (Manual) Basophils # (Manual) PT INR Fibrinogen dRVVT Confirm Interp Factor V Activity POC ABG pH 7.342 L POC ABG pCO2 POC ABG pO2 116 H ABG pO2 ABG HCO3 ABG Base Excess ABG Hemoglobin Oxyhemoglobin Sodium Potassium Chloride Carbon Dioxide BUN Creatinine Glucose POC Glucose 154 H Lactic Acid Calcium Phosphorus Magnesium Direct Bilirubin AST ALT Alkaline Phosphatase Lactate Dehydrogenase Troponin T C-Reactive Protein Total Protein Albumin Prealbumin Triglycerides Cholesterol LDL Cholesterol Direct HDL Cholesterol Urine pH Urine WBC (Auto) Urine Creatinine Urine Total Protein Fluid Total Protein Vancomycin Trough Rheumatoid Factor Complement C4 Miscellaneous Test Crossmatch 09/14/16 09/14/16 09/14/16 04:07 05:29 12:19 WBC RBC Hgb Hct MCV MCH MCHC RDW Plt Count Lymph % (Auto) [place] % (Auto) Lymph # [place] # Baso # Seg Neutrophils % Seg Neuts % (Manual) Lymphocytes % (Manual) Monocytes % (Manual) Eosinophils % (Manual) Basophils % (Manual) Nucleated RBC % Seg Neutrophils # Seg Neutrophils # Man Lymphocytes # (Manual) Monocytes # (Manual) Eosinophils # (Manual) Basophils # (Manual) PT INR Fibrinogen dRVVT Confirm Interp Factor V Activity POC ABG pH POC ABG pCO2 POC ABG pO2 ABG pO2 ABG HCO3 ABG Base Excess ABG Hemoglobin Oxyhemoglobin Sodium 136 L Potassium Chloride Carbon Dioxide 18 L BUN 121 H Creatinine 2.8 H Glucose 214 H POC Glucose 239 H 181 H Lactic Acid Calcium Phosphorus Magnesium Direct Bilirubin AST ALT Alkaline Phosphatase Lactate Dehydrogenase Troponin T C-Reactive Protein Total Protein Albumin Prealbumin Triglycerides Cholesterol LDL Cholesterol Direct HDL Cholesterol Urine pH Urine WBC (Auto) Urine Creatinine Urine Total Protein Fluid Total Protein Vancomycin Trough Rheumatoid Factor Complement C4 Miscellaneous Test Crossmatch 09/14/16 09/14/16 09/15/16 18:12 23:37 05:00 WBC 26.1 H RBC 3.05 L Hgb 7.2 L Hct 22.9 L MCV 75 L MCH 24 L MCHC RDW 19.0 H Plt Count Lymph % (Auto) [place] % (Auto) Lymph # [place] # Baso # Seg Neutrophils % Seg Neuts % (Manual) Lymphocytes % (Manual) Monocytes % (Manual) Eosinophils % (Manual) Basophils % (Manual) Nucleated RBC % Seg Neutrophils # Seg Neutrophils # Man Lymphocytes # (Manual) Monocytes # (Manual) Eosinophils # (Manual) Basophils # (Manual) PT INR Fibrinogen dRVVT Confirm Interp Factor V Activity POC ABG pH POC ABG pCO2 POC ABG pO2 ABG pO2 ABG HCO3 ABG Base Excess ABG Hemoglobin Oxyhemoglobin Sodium Potassium Chloride Carbon Dioxide BUN Creatinine Glucose POC Glucose 266 H 154 H Lactic Acid Calcium Phosphorus Magnesium Direct Bilirubin AST ALT Alkaline Phosphatase Lactate Dehydrogenase Troponin T C-Reactive Protein Total Protein Albumin Prealbumin Triglycerides Cholesterol LDL Cholesterol Direct HDL Cholesterol Urine pH Urine WBC (Auto) Urine Creatinine Urine Total Protein Fluid Total Protein Vancomycin Trough Rheumatoid Factor Complement C4 Miscellaneous Test Crossmatch 09/15/16 09/15/16 09/15/16 05:00 05:17 12:45 WBC RBC Hgb Hct MCV MCH MCHC RDW Plt Count Lymph % (Auto) [place] % (Auto) Lymph # [place] # Baso # Seg Neutrophils % Seg Neuts % (Manual) Lymphocytes % (Manual) Monocytes % (Manual) Eosinophils % (Manual) Basophils % (Manual) Nucleated RBC % Seg Neutrophils # Seg Neutrophils # Man Lymphocytes # (Manual) Monocytes # (Manual) Eosinophils # (Manual) Basophils # (Manual) PT INR Fibrinogen dRVVT Confirm Interp Factor V Activity POC ABG pH POC ABG pCO2 POC ABG pO2 ABG pO2 ABG HCO3 ABG Base Excess ABG Hemoglobin Oxyhemoglobin Sodium Potassium 5.2 H Chloride Carbon Dioxide 18 L BUN 139 H Creatinine 3.7 H Glucose 227 H POC Glucose 226 H 244 H Lactic Acid Calcium 8.3 L Phosphorus Magnesium Direct Bilirubin AST ALT Alkaline Phosphatase Lactate Dehydrogenase Troponin T C-Reactive Protein Total Protein Albumin Prealbumin Triglycerides Cholesterol LDL Cholesterol Direct HDL Cholesterol Urine pH Urine WBC (Auto) Urine Creatinine Urine Total Protein Fluid Total Protein Vancomycin Trough Rheumatoid Factor Complement C4 Miscellaneous Test Crossmatch 07/09/15/16 09/15/16 14:32 17:33 23:35 WBC RBC Hgb Hct MCV MCH MCHC RDW Plt Count Lymph % (Auto) [place] % (Auto) Lymph # [place] # Baso # Seg Neutrophils % Seg Neuts % (Manual) Lymphocytes % (Manual) Monocytes % (Manual) Eosinophils % (Manual) Basophils % (Manual) Nucleated RBC % Seg Neutrophils # Seg Neutrophils # Man Lymphocytes # (Manual) Monocytes # (Manual) Eosinophils # (Manual) Basophils # (Manual) PT INR Fibrinogen dRVVT Confirm Interp Factor V Activity POC ABG pH POC ABG pCO2 27.7 L POC ABG pO2 120 H ABG pO2 ABG HCO3 ABG Base Excess ABG Hemoglobin Oxyhemoglobin Sodium Potassium Chloride Carbon Dioxide BUN Creatinine Glucose POC Glucose 232 H 167 H Lactic Acid Calcium Phosphorus Magnesium Direct Bilirubin AST ALT Alkaline Phosphatase Lactate Dehydrogenase Troponin T C-Reactive Protein Total Protein Albumin Prealbumin Triglycerides Cholesterol LDL Cholesterol Direct HDL Cholesterol Urine pH Urine WBC (Auto) Urine Creatinine Urine Total Protein Fluid Total Protein Vancomycin Trough Rheumatoid Factor Complement C4 Miscellaneous Test Crossmatch 09/16/16 09/16/16 09/16/16 03:58 10:27 10:27 WBC 19.0 H RBC 2.77 L Hgb 6.5 L Hct 20.9 L MCV 76 L MCH 23 L MCHC RDW 19.3 H Plt Count Lymph % (Auto) 11.0 L [place] % (Auto) Lymph # [place] # 1.1 H Baso # Seg Neutrophils % 82.5 H Seg Neuts % (Manual) Lymphocytes % (Manual) Monocytes % (Manual) Eosinophils % (Manual) Basophils % (Manual) Nucleated RBC % Seg Neutrophils # 15.7 H Seg Neutrophils # Man Lymphocytes # (Manual) Monocytes # (Manual) Eosinophils # (Manual) Basophils # (Manual) PT INR Fibrinogen dRVVT Confirm Interp Factor V Activity POC ABG pH POC ABG pCO2 POC ABG pO2 ABG pO2 ABG HCO3 ABG Base Excess ABG Hemoglobin Oxyhemoglobin Sodium Potassium Chloride 109.3 H Carbon Dioxide 18 L BUN 139 H Creatinine 4.1 H Glucose 144 H POC Glucose 146 H Lactic Acid Calcium 8.1 L Phosphorus Magnesium Direct Bilirubin AST ALT Alkaline Phosphatase Lactate Dehydrogenase Troponin T C-Reactive Protein Total Protein Albumin Prealbumin Triglycerides Cholesterol LDL Cholesterol Direct HDL Cholesterol Urine pH Urine WBC (Auto) Urine Creatinine Urine Total Protein Fluid Total Protein Vancomycin Trough Rheumatoid Factor Complement C4 Miscellaneous Test Crossmatch 09/16/16 09/16/16 09/16/16 12:04 12:10 13:55 WBC RBC Hgb Hct MCV MCH MCHC RDW Plt Count Lymph % (Auto) [place] % (Auto) Lymph # [place] # Baso # Seg Neutrophils % Seg Neuts % (Manual) Lymphocytes % (Manual) Monocytes % (Manual) Eosinophils % (Manual) Basophils % (Manual) Nucleated RBC % Seg Neutrophils # Seg Neutrophils # Man Lymphocytes # (Manual) Monocytes # (Manual) Eosinophils # (Manual) Basophils # (Manual) PT INR Fibrinogen dRVVT Confirm Interp Factor V Activity POC ABG pH POC ABG pCO2 32.9 L POC ABG pO2 ABG pO2 ABG HCO3 ABG Base Excess ABG Hemoglobin Oxyhemoglobin Sodium Potassium Chloride Carbon Dioxide BUN Creatinine Glucose POC Glucose 185 H Lactic Acid Calcium Phosphorus Magnesium Direct Bilirubin AST ALT Alkaline Phosphatase Lactate Dehydrogenase Troponin T C-Reactive Protein Total Protein Albumin Prealbumin Triglycerides Cholesterol LDL Cholesterol Direct HDL Cholesterol Urine pH Urine WBC (Auto) Urine Creatinine Urine Total Protein Fluid Total Protein Vancomycin Trough Rheumatoid Factor Complement C4 Miscellaneous Test Crossmatch See Detail 09/16/16 09/16/16 09/16/16 17:55 19:19 23:48 WBC RBC Hgb Hct MCV MCH MCHC RDW Plt Count Lymph % (Auto) [place] % (Auto) Lymph # [place] # Baso # Seg Neutrophils % Seg Neuts % (Manual) Lymphocytes % (Manual) Monocytes % (Manual) Eosinophils % (Manual) Basophils % (Manual) Nucleated RBC % Seg Neutrophils # Seg Neutrophils # Man Lymphocytes # (Manual) Monocytes # (Manual) Eosinophils # (Manual) Basophils # (Manual) PT INR Fibrinogen dRVVT Confirm Interp Factor V Activity POC ABG pH POC ABG pCO2 POC ABG pO2 ABG pO2 ABG HCO3 ABG Base Excess ABG Hemoglobin Oxyhemoglobin Sodium Potassium Chloride Carbon Dioxide BUN Creatinine Glucose POC Glucose 222 H 107 H Lactic Acid Calcium Phosphorus Magnesium Direct Bilirubin AST ALT Alkaline Phosphatase Lactate Dehydrogenase Troponin T C-Reactive Protein Total Protein Albumin Prealbumin Triglycerides Cholesterol LDL Cholesterol Direct HDL Cholesterol Urine pH Urine WBC (Auto) Urine Creatinine 47.4 H Urine Total Protein 16 H Fluid Total Protein Vancomycin Trough Rheumatoid Factor Complement C4 Miscellaneous Test Crossmatch 09/17/16 09/17/16 09/17/16 03:45 03:45 04:55 WBC 19.6 H RBC 3.41 L Hgb 8.5 L Hct 26.7 L MCV 78 L MCH 25 L MCHC RDW 19.9 H Plt Count Lymph % (Auto) 9.3 L [place] % (Auto) Lymph # [place] # 1.2 H Baso # Seg Neutrophils % 83.9 H Seg Neuts % (Manual) Lymphocytes % (Manual) Monocytes % (Manual) Eosinophils % (Manual) Basophils % (Manual) Nucleated RBC % Seg Neutrophils # 16.4 H Seg Neutrophils # Man Lymphocytes # (Manual) Monocytes # (Manual) Eosinophils # (Manual) Basophils # (Manual) PT INR Fibrinogen dRVVT Confirm Interp Factor V Activity POC ABG pH POC ABG pCO2 POC ABG pO2 ABG pO2 ABG HCO3 ABG Base Excess ABG Hemoglobin Oxyhemoglobin Sodium 146 H Potassium 5.1 H Chloride 110.9 H Carbon Dioxide 16 L BUN 146 H Creatinine 4.0 H Glucose 108 H POC Glucose 133 H Lactic Acid Calcium Phosphorus Magnesium 3.00 H Direct Bilirubin AST ALT Alkaline Phosphatase Lactate Dehydrogenase Troponin T C-Reactive Protein Total Protein Albumin Prealbumin Triglycerides Cholesterol LDL Cholesterol Direct HDL Cholesterol Urine pH Urine WBC (Auto) Urine Creatinine Urine Total Protein Fluid Total Protein Vancomycin Trough Rheumatoid Factor Complement C4 Miscellaneous Test Crossmatch 09/17/16 09/17/16 09/17/16 11:15 17:33 23:47 WBC RBC Hgb Hct MCV MCH MCHC RDW Plt Count Lymph % (Auto) [place] % (Auto) Lymph # [place] # Baso # Seg Neutrophils % Seg Neuts % (Manual) Lymphocytes % (Manual) Monocytes % (Manual) Eosinophils % (Manual) Basophils % (Manual) Nucleated RBC % Seg Neutrophils # Seg Neutrophils # Man Lymphocytes # (Manual) Monocytes # (Manual) Eosinophils # (Manual) Basophils # (Manual) PT INR Fibrinogen dRVVT Confirm Interp Factor V Activity POC ABG pH POC ABG pCO2 POC ABG pO2 ABG pO2 ABG HCO3 ABG Base Excess ABG Hemoglobin Oxyhemoglobin Sodium Potassium Chloride Carbon Dioxide BUN Creatinine Glucose POC Glucose 176 H 246 H 148 H Lactic Acid Calcium Phosphorus Magnesium Direct Bilirubin AST ALT Alkaline Phosphatase Lactate Dehydrogenase Troponin T C-Reactive Protein Total Protein Albumin Prealbumin Triglycerides Cholesterol LDL Cholesterol Direct HDL Cholesterol Urine pH Urine WBC (Auto) Urine Creatinine Urine Total Protein Fluid Total Protein Vancomycin Trough Rheumatoid Factor Complement C4 Miscellaneous Test Crossmatch 09/18/16 09/18/1617 05:33 08:31 08:31 WBC 18.0 H RBC 3.17 L Hgb 9.0 L Hct 25.7 L MCV MCH MCHC 35 H RDW 20.4 H Plt Count Lymph % (Auto) [place] % (Auto) Lymph # [place] # Baso # Seg Neutrophils % Seg Neuts % (Manual) Lymphocytes % (Manual) Monocytes % (Manual) Eosinophils % (Manual) Basophils % (Manual) Nucleated RBC % Seg Neutrophils # Seg Neutrophils # Man Lymphocytes # (Manual) Monocytes # (Manual) Eosinophils # (Manual) Basophils # (Manual) PT INR Fibrinogen dRVVT Confirm Interp Factor V Activity POC ABG pH POC ABG pCO2 POC ABG pO2 ABG pO2 ABG HCO3 ABG Base Excess ABG Hemoglobin Oxyhemoglobin Sodium Potassium Chloride Carbon Dioxide 15 L BUN 124 H Creatinine 3.8 H Glucose POC Glucose 120 H Lactic Acid Calcium 8.1 L Phosphorus Magnesium Direct Bilirubin AST ALT Alkaline Phosphatase Lactate Dehydrogenase Troponin T C-Reactive Protein Total Protein Albumin Prealbumin Triglycerides Cholesterol LDL Cholesterol Direct HDL Cholesterol Urine pH Urine WBC (Auto) Urine Creatinine Urine Total Protein Fluid Total Protein Vancomycin Trough Rheumatoid Factor Complement C4 Miscellaneous Test Crossmatch 09/18/16 09/18/16 09/18/16 12:03 15:34 17:50 WBC RBC Hgb Hct MCV MCH MCHC RDW Plt Count Lymph % (Auto) [place] % (Auto) Lymph # [place] # Baso # Seg Neutrophils % Seg Neuts % (Manual) Lymphocytes % (Manual) Monocytes % (Manual) Eosinophils % (Manual) Basophils % (Manual) Nucleated RBC % Seg Neutrophils # Seg Neutrophils # Man Lymphocytes # (Manual) Monocytes # (Manual) Eosinophils # (Manual) Basophils # (Manual) PT INR Fibrinogen dRVVT Confirm Interp Factor V Activity POC ABG pH POC ABG pCO2 25.7 L POC ABG pO2 66 L ABG pO2 ABG HCO3 ABG Base Excess ABG Hemoglobin Oxyhemoglobin Sodium Potassium Chloride Carbon Dioxide BUN Creatinine Glucose POC Glucose 156 H 220 H Lactic Acid Calcium Phosphorus Magnesium Direct Bilirubin AST ALT Alkaline Phosphatase Lactate Dehydrogenase Troponin T C-Reactive Protein Total Protein Albumin Prealbumin Triglycerides Cholesterol LDL Cholesterol Direct HDL Cholesterol Urine pH Urine WBC (Auto) Urine Creatinine Urine Total Protein Fluid Total Protein Vancomycin Trough Rheumatoid Factor Complement C4 Miscellaneous Test Crossmatch 09/19/16 09/19/16 09/19/16 06:21 09:50 09:50 WBC 17.1 H RBC 3.49 L Hgb 9.0 L Hct 28.1 L MCV MCH 26 L MCHC RDW 20.8 H Plt Count Lymph % (Auto) 11.5 L [place] % (Auto) 7.5 H Lymph # [place] # 1.3 H Baso # Seg Neutrophils % 79.8 H Seg Neuts % (Manual) Lymphocytes % (Manual) Monocytes % (Manual) Eosinophils % (Manual) Basophils % (Manual) Nucleated RBC % Seg Neutrophils # 13.7 H Seg Neutrophils # Man Lymphocytes # (Manual) Monocytes # (Manual) Eosinophils # (Manual) Basophils # (Manual) PT INR Fibrinogen dRVVT Confirm Interp Factor V Activity POC ABG pH POC ABG pCO2 POC ABG pO2 ABG pO2 ABG HCO3 ABG Base Excess ABG Hemoglobin Oxyhemoglobin Sodium Potassium Chloride 108.6 H Carbon Dioxide 15 L BUN 125 H Creatinine 4.1 H Glucose 124 H POC Glucose 119 H Lactic Acid Calcium Phosphorus Magnesium Direct Bilirubin AST ALT Alkaline Phosphatase Lactate Dehydrogenase Troponin T C-Reactive Protein Total Protein Albumin Prealbumin Triglycerides Cholesterol LDL Cholesterol Direct HDL Cholesterol Urine pH Urine WBC (Auto) Urine Creatinine Urine Total Protein Fluid Total Protein Vancomycin Trough Rheumatoid Factor Complement C4 Miscellaneous Test Crossmatch 09/19/16 09/19/16 09/19/16 11:25 17:53 23:36 WBC RBC Hgb Hct MCV MCH MCHC RDW Plt Count Lymph % (Auto) [place] % (Auto) Lymph # [place] # Baso # Seg Neutrophils % Seg Neuts % (Manual) Lymphocytes % (Manual) Monocytes % (Manual) Eosinophils % (Manual) Basophils % (Manual) Nucleated RBC % Seg Neutrophils # Seg Neutrophils # Man Lymphocytes # (Manual) Monocytes # (Manual) Eosinophils # (Manual) Basophils # (Manual) PT INR Fibrinogen dRVVT Confirm Interp Factor V Activity POC ABG pH POC ABG pCO2 POC ABG pO2 ABG pO2 ABG HCO3 ABG Base Excess ABG Hemoglobin Oxyhemoglobin Sodium Potassium Chloride Carbon Dioxide BUN Creatinine Glucose POC Glucose 160 H 245 H 121 H Lactic Acid Calcium Phosphorus Magnesium Direct Bilirubin AST ALT Alkaline Phosphatase Lactate Dehydrogenase Troponin T C-Reactive Protein Total Protein Albumin Prealbumin Triglycerides Cholesterol LDL Cholesterol Direct HDL Cholesterol Urine pH Urine WBC (Auto) Urine Creatinine Urine Total Protein Fluid Total Protein Vancomycin Trough Rheumatoid Factor Complement C4 Miscellaneous Test Crossmatch 08/03/0809/20/16 09/20/16 04:10 04:10 04:10 WBC 17.0 H RBC 3.21 L Hgb 8.2 L Hct 25.5 L MCV MCH 26 L MCHC RDW 20.9 H Plt Count Lymph % (Auto) [place] % (Auto) Lymph # [place] # Baso # Seg Neutrophils % Seg Neuts % (Manual) Lymphocytes % (Manual) Monocytes % (Manual) Eosinophils % (Manual) Basophils % (Manual) Nucleated RBC % Seg Neutrophils # Seg Neutrophils # Man Lymphocytes # (Manual) Monocytes # (Manual) Eosinophils # (Manual) Basophils # (Manual) PT INR Fibrinogen dRVVT Confirm Interp Factor V Activity POC ABG pH POC ABG pCO2 POC ABG pO2 ABG pO2 ABG HCO3 ABG Base Excess ABG Hemoglobin Oxyhemoglobin Sodium Potassium Chloride 111.0 H Carbon Dioxide 16 L BUN 129 H Creatinine 3.7 H Glucose 115 H POC Glucose Lactic Acid Calcium 8.2 L Phosphorus Magnesium Direct Bilirubin AST ALT Alkaline Phosphatase Lactate Dehydrogenase Troponin T C-Reactive Protein Total Protein Albumin Prealbumin Triglycerides 243 H Cholesterol LDL Cholesterol Direct HDL Cholesterol Urine pH Urine WBC (Auto) Urine Creatinine Urine Total Protein Fluid Total Protein Vancomycin Trough Rheumatoid Factor Complement C4 Miscellaneous Test Crossmatch 09/20/16 09/20/16 09/20/16 05:40 11:52 16:50 WBC RBC Hgb Hct MCV MCH MCHC RDW Plt Count Lymph % (Auto) [place] % (Auto) Lymph # [place] # Baso # Seg Neutrophils % Seg Neuts % (Manual) Lymphocytes % (Manual) Monocytes % (Manual) Eosinophils % (Manual) Basophils % (Manual) Nucleated RBC % Seg Neutrophils # Seg Neutrophils # Man Lymphocytes # (Manual) Monocytes # (Manual) Eosinophils # (Manual) Basophils # (Manual) PT INR Fibrinogen dRVVT Confirm Interp Factor V Activity POC ABG pH POC ABG pCO2 POC ABG pO2 ABG pO2 ABG HCO3 ABG Base Excess ABG Hemoglobin Oxyhemoglobin Sodium Potassium Chloride Carbon Dioxide BUN Creatinine Glucose POC Glucose 131 H 183 H 236 H Lactic Acid Calcium Phosphorus Magnesium Direct Bilirubin AST ALT Alkaline Phosphatase Lactate Dehydrogenase Troponin T C-Reactive Protein Total Protein Albumin Prealbumin Triglycerides Cholesterol LDL Cholesterol Direct HDL Cholesterol Urine pH Urine WBC (Auto) Urine Creatinine Urine Total Protein Fluid Total Protein Vancomycin Trough Rheumatoid Factor Complement C4 Miscellaneous Test Crossmatch 09/20/16 09/21/16 09/21/16 23:51 03:30 04:44 WBC RBC Hgb Hct MCV MCH MCHC RDW Plt Count Lymph % (Auto) [place] % (Auto) Lymph # [place] # Baso # Seg Neutrophils % Seg Neuts % (Manual) Lymphocytes % (Manual) Monocytes % (Manual) Eosinophils % (Manual) Basophils % (Manual) Nucleated RBC % Seg Neutrophils # Seg Neutrophils # Man Lymphocytes # (Manual) Monocytes # (Manual) Eosinophils # (Manual) Basophils # (Manual) PT INR Fibrinogen dRVVT Confirm Interp Factor V Activity POC ABG pH POC ABG pCO2 POC ABG pO2 ABG pO2 ABG HCO3 ABG Base Excess ABG Hemoglobin Oxyhemoglobin Sodium Potassium Chloride Carbon Dioxide BUN Creatinine Glucose POC Glucose 114 H 141 H Lactic Acid Calcium Phosphorus Magnesium 2.70 H Direct Bilirubin AST ALT Alkaline Phosphatase Lactate Dehydrogenase Troponin T C-Reactive Protein Total Protein Albumin Prealbumin Triglycerides Cholesterol LDL Cholesterol Direct HDL Cholesterol Urine pH Urine WBC (Auto) Urine Creatinine Urine Total Protein Fluid Total Protein Vancomycin Trough Rheumatoid Factor Complement C4 Miscellaneous Test Crossmatch 09/21/16 09/21/16 09/21/16 07:45 07:45 10:01 WBC 13.8 H RBC 2.94 L Hgb 7.5 L Hct 23.5 L MCV MCH 26 L MCHC RDW 21.2 H Plt Count Lymph % (Auto) 6.9 L [place] % (Auto) 9.4 H Lymph # 0.9 L [place] # 1.3 H Baso # Seg Neutrophils % 83.2 H Seg Neuts % (Manual) Lymphocytes % (Manual) Monocytes % (Manual) Eosinophils % (Manual) Basophils % (Manual) Nucleated RBC % Seg Neutrophils # 11.5 H Seg Neutrophils # Man Lymphocytes # (Manual) Monocytes # (Manual) Eosinophils # (Manual) Basophils # (Manual) PT INR Fibrinogen dRVVT Confirm Interp Factor V Activity POC ABG pH 7.308 L POC ABG pCO2 31.9 L POC ABG pO2 148 H ABG pO2 ABG HCO3 ABG Base Excess ABG Hemoglobin Oxyhemoglobin Sodium 147 H Potassium Chloride 114.2 H Carbon Dioxide 15 L BUN 120 H Creatinine 3.9 H Glucose 156 H POC Glucose Lactic Acid Calcium 8.2 L Phosphorus Magnesium Direct Bilirubin AST ALT Alkaline Phosphatase Lactate Dehydrogenase Troponin T C-Reactive Protein Total Protein Albumin Prealbumin Triglycerides Cholesterol LDL Cholesterol Direct HDL Cholesterol Urine pH Urine WBC (Auto) Urine Creatinine Urine Total Protein Fluid Total Protein Vancomycin Trough Rheumatoid Factor Complement C4 Miscellaneous Test Crossmatch 09/21/16 09/21/16 09/21/16 12:00 12:03 13:00 WBC RBC Hgb Hct MCV MCH MCHC RDW Plt Count Lymph % (Auto) [place] % (Auto) Lymph # [place] # Baso # Seg Neutrophils % Seg Neuts % (Manual) Lymphocytes % (Manual) Monocytes % (Manual) Eosinophils % (Manual) Basophils % (Manual) Nucleated RBC % Seg Neutrophils # Seg Neutrophils # Man Lymphocytes # (Manual) Monocytes # (Manual) Eosinophils # (Manual) Basophils # (Manual) PT INR Fibrinogen dRVVT Confirm Interp Factor V Activity POC ABG pH POC ABG pCO2 POC ABG pO2 ABG pO2 ABG HCO3 ABG Base Excess ABG Hemoglobin Oxyhemoglobin Sodium Potassium Chloride Carbon Dioxide BUN Creatinine Glucose POC Glucose 163 H Lactic Acid Calcium Phosphorus Magnesium Direct Bilirubin AST ALT Alkaline Phosphatase Lactate Dehydrogenase Troponin T C-Reactive Protein Total Protein Albumin Prealbumin Triglycerides Cholesterol LDL Cholesterol Direct HDL Cholesterol Urine pH Urine WBC (Auto) Urine Creatinine 54.8 H Urine Total Protein Fluid Total Protein Vancomycin Trough 2.3 L Rheumatoid Factor Complement C4 Miscellaneous Test Crossmatch 09/21/16 09/21/16 09/22/16 16:51 23:17 06:27 WBC RBC Hgb Hct MCV MCH MCHC RDW Plt Count Lymph % (Auto) [place] % (Auto) Lymph # [place] # Baso # Seg Neutrophils % Seg Neuts % (Manual) Lymphocytes % (Manual) Monocytes % (Manual) Eosinophils % (Manual) Basophils % (Manual) Nucleated RBC % Seg Neutrophils # Seg Neutrophils # Man Lymphocytes # (Manual) Monocytes # (Manual) Eosinophils # (Manual) Basophils # (Manual) PT INR Fibrinogen dRVVT Confirm Interp Factor V Activity POC ABG pH POC ABG pCO2 POC ABG pO2 ABG pO2 ABG HCO3 ABG Base Excess ABG Hemoglobin Oxyhemoglobin Sodium Potassium Chloride Carbon Dioxide BUN Creatinine Glucose POC Glucose 206 H 114 H 115 H Lactic Acid Calcium Phosphorus Magnesium Direct Bilirubin AST ALT Alkaline Phosphatase Lactate Dehydrogenase Troponin T C-Reactive Protein Total Protein Albumin Prealbumin Triglycerides Cholesterol LDL Cholesterol Direct HDL Cholesterol Urine pH Urine WBC (Auto) Urine Creatinine Urine Total Protein Fluid Total Protein Vancomycin Trough Rheumatoid Factor Complement C4 Miscellaneous Test Crossmatch 09/22/16 09/22/16 09/22/16 07:50 07:50 12:00 WBC 17.8 H RBC 3.04 L Hgb 8.0 L Hct 24.7 L MCV MCH 26 L MCHC RDW 21.6 H Plt Count Lymph % (Auto) [place] % (Auto) Lymph # [place] # Baso # Seg Neutrophils % Seg Neuts % (Manual) Lymphocytes % (Manual) Monocytes % (Manual) Eosinophils % (Manual) Basophils % (Manual) Nucleated RBC % Seg Neutrophils # Seg Neutrophils # Man Lymphocytes # (Manual) Monocytes # (Manual) Eosinophils # (Manual) Basophils # (Manual) PT INR Fibrinogen dRVVT Confirm Interp Factor V Activity POC ABG pH POC ABG pCO2 POC ABG pO2 ABG pO2 ABG HCO3 ABG Base Excess ABG Hemoglobin Oxyhemoglobin Sodium 150 H Potassium Chloride 118.2 H Carbon Dioxide 14 L BUN 111 H Creatinine 3.7 H Glucose 157 H POC Glucose 183 H Lactic Acid Calcium Phosphorus Magnesium Direct Bilirubin AST ALT Alkaline Phosphatase Lactate Dehydrogenase Troponin T C-Reactive Protein Total Protein Albumin Prealbumin Triglycerides Cholesterol LDL Cholesterol Direct HDL Cholesterol Urine pH Urine WBC (Auto) Urine Creatinine Urine Total Protein Fluid Total Protein Vancomycin Trough Rheumatoid Factor Complement C4 Miscellaneous Test Crossmatch 09/22/16 09/22/16 09/23/16 17:29 23:10 05:00 WBC 19.2 H RBC 3.13 L Hgb 8.0 L Hct 25.2 L MCV MCH 26 L MCHC RDW 22.1 H Plt Count Lymph % (Auto) [place] % (Auto) Lymph # [place] # Baso # Seg Neutrophils % Seg Neuts % (Manual) 92.0 H Lymphocytes % (Manual) 3.0 L Monocytes % (Manual) Eosinophils % (Manual) Basophils % (Manual) Nucleated RBC % Seg Neutrophils # Seg Neutrophils # Man 17.7 H Lymphocytes # (Manual) 0.6 L Monocytes # (Manual) Eosinophils # (Manual) Basophils # (Manual) PT INR Fibrinogen dRVVT Confirm Interp Factor V Activity POC ABG pH POC ABG pCO2 POC ABG pO2 ABG pO2 ABG HCO3 ABG Base Excess ABG Hemoglobin Oxyhemoglobin Sodium Potassium Chloride Carbon Dioxide BUN Creatinine Glucose POC Glucose 197 H 169 H Lactic Acid Calcium Phosphorus Magnesium Direct Bilirubin AST ALT Alkaline Phosphatase Lactate Dehydrogenase Troponin T C-Reactive Protein Total Protein Albumin Prealbumin Triglycerides Cholesterol LDL Cholesterol Direct HDL Cholesterol Urine pH Urine WBC (Auto) Urine Creatinine Urine Total Protein Fluid Total Protein Vancomycin Trough Rheumatoid Factor Complement C4 Miscellaneous Test Crossmatch 09/23/16 09/23/16 09/23/16 05:00 05:00 05:10 WBC RBC Hgb Hct MCV MCH MCHC RDW Plt Count Lymph % (Auto) [place] % (Auto) Lymph # [place] # Baso # Seg Neutrophils % Seg Neuts % (Manual) Lymphocytes % (Manual) Monocytes % (Manual) Eosinophils % (Manual) Basophils % (Manual) Nucleated RBC % Seg Neutrophils # Seg Neutrophils # Man Lymphocytes # (Manual) Monocytes # (Manual) Eosinophils # (Manual) Basophils # (Manual) PT INR Fibrinogen dRVVT Confirm Interp Factor V Activity POC ABG pH POC ABG pCO2 POC ABG pO2 ABG pO2 ABG HCO3 ABG Base Excess ABG Hemoglobin Oxyhemoglobin Sodium 147 H Potassium 3.2 L Chloride 115.7 H Carbon Dioxide 13 L BUN 111 H Creatinine 3.8 H Glucose 194 H POC Glucose 188 H Lactic Acid Calcium 7.3 L D Phosphorus Magnesium Direct Bilirubin AST ALT Alkaline Phosphatase Lactate Dehydrogenase Troponin T C-Reactive Protein 3.20 H Total Protein Albumin Prealbumin Triglycerides Cholesterol LDL Cholesterol Direct HDL Cholesterol Urine pH Urine WBC (Auto) Urine Creatinine Urine Total Protein Fluid Total Protein Vancomycin Trough Rheumatoid Factor Complement C4 Miscellaneous Test Crossmatch 09/23/16 09/23/16 09/23/16 11:37 12:29 18:01 WBC RBC Hgb Hct MCV MCH MCHC RDW Plt Count Lymph % (Auto) [place] % (Auto) Lymph # [place] # Baso # Seg Neutrophils % Seg Neuts % (Manual) Lymphocytes % (Manual) Monocytes % (Manual) Eosinophils % (Manual) Basophils % (Manual) Nucleated RBC % Seg Neutrophils # Seg Neutrophils # Man Lymphocytes # (Manual) Monocytes # (Manual) Eosinophils # (Manual) Basophils # (Manual) PT INR Fibrinogen dRVVT Confirm Interp Factor V Activity POC ABG pH POC ABG pCO2 18.9 L POC ABG pO2 143 H ABG pO2 ABG HCO3 ABG Base Excess ABG Hemoglobin Oxyhemoglobin Sodium Potassium Chloride Carbon Dioxide BUN Creatinine Glucose POC Glucose 153 H 108 H Lactic Acid Calcium Phosphorus Magnesium Direct Bilirubin AST ALT Alkaline Phosphatase Lactate Dehydrogenase Troponin T C-Reactive Protein Total Protein Albumin Prealbumin Triglycerides Cholesterol LDL Cholesterol Direct HDL Cholesterol Urine pH Urine WBC (Auto) Urine Creatinine Urine Total Protein Fluid Total Protein Vancomycin Trough Rheumatoid Factor Complement C4 Miscellaneous Test Crossmatch 0809/23/[id number] 09/24/16 21:19 23:43 05:16 WBC RBC Hgb Hct MCV MCH MCHC RDW Plt Count Lymph % (Auto) [place] % (Auto) Lymph # [place] # Baso # Seg Neutrophils % Seg Neuts % (Manual) Lymphocytes % (Manual) Monocytes % (Manual) Eosinophils % (Manual) Basophils % (Manual) Nucleated RBC % Seg Neutrophils # Seg Neutrophils # Man Lymphocytes # (Manual) Monocytes # (Manual) Eosinophils # (Manual) Basophils # (Manual) PT INR Fibrinogen dRVVT Confirm Interp Factor V Activity POC ABG pH POC ABG pCO2 17.3 L POC ABG pO2 112 H ABG pO2 ABG HCO3 ABG Base Excess ABG Hemoglobin Oxyhemoglobin Sodium Potassium Chloride Carbon Dioxide BUN Creatinine Glucose POC Glucose 143 H 164 H Lactic Acid Calcium Phosphorus Magnesium Direct Bilirubin AST ALT Alkaline Phosphatase Lactate Dehydrogenase Troponin T C-Reactive Protein Total Protein Albumin Prealbumin Triglycerides Cholesterol LDL Cholesterol Direct HDL Cholesterol Urine pH Urine WBC (Auto) Urine Creatinine Urine Total Protein Fluid Total Protein Vancomycin Trough Rheumatoid Factor Complement C4 Miscellaneous Test Crossmatch 09/24/16 09/24/16 09/24/16 05:21 11:58 17:06 WBC RBC Hgb Hct MCV MCH MCHC RDW Plt Count Lymph % (Auto) [place] % (Auto) Lymph # [place] # Baso # Seg Neutrophils % Seg Neuts % (Manual) Lymphocytes % (Manual) Monocytes % (Manual) Eosinophils % (Manual) Basophils % (Manual) Nucleated RBC % Seg Neutrophils # Seg Neutrophils # Man Lymphocytes # (Manual) Monocytes # (Manual) Eosinophils # (Manual) Basophils # (Manual) PT INR Fibrinogen dRVVT Confirm Interp Factor V Activity POC ABG pH POC ABG pCO2 POC ABG pO2 ABG pO2 ABG HCO3 ABG Base Excess ABG Hemoglobin Oxyhemoglobin Sodium Potassium Chloride Carbon Dioxide 10 L BUN 103 H Creatinine 4.3 H Glucose 163 H POC Glucose 173 H 167 H Lactic Acid Calcium 6.5 L Phosphorus Magnesium Direct Bilirubin AST ALT Alkaline Phosphatase Lactate Dehydrogenase Troponin T C-Reactive Protein Total Protein Albumin Prealbumin Triglycerides Cholesterol LDL Cholesterol Direct HDL Cholesterol Urine pH Urine WBC (Auto) Urine Creatinine Urine Total Protein Fluid Total Protein Vancomycin Trough Rheumatoid Factor Complement C4 Miscellaneous Test Crossmatch 09/24/16 09/24/16 09/24/16 20:15 21:02 23:48 WBC RBC Hgb Hct MCV MCH MCHC RDW Plt Count Lymph % (Auto) [place] % (Auto) Lymph # [place] # Baso # Seg Neutrophils % Seg Neuts % (Manual) Lymphocytes % (Manual) Monocytes % (Manual) Eosinophils % (Manual) Basophils % (Manual) Nucleated RBC % Seg Neutrophils # Seg Neutrophils # Man Lymphocytes # (Manual) Monocytes # (Manual) Eosinophils # (Manual) Basophils # (Manual) PT INR Fibrinogen dRVVT Confirm Interp Factor V Activity POC ABG pH 7.288 L POC ABG pCO2 30.2 L 21.5 L POC ABG pO2 32 L 39 L ABG pO2 ABG HCO3 ABG Base Excess ABG Hemoglobin Oxyhemoglobin Sodium Potassium Chloride Carbon Dioxide BUN Creatinine Glucose POC Glucose 109 H Lactic Acid Calcium Phosphorus Magnesium Direct Bilirubin AST ALT Alkaline Phosphatase Lactate Dehydrogenase Troponin T C-Reactive Protein Total Protein Albumin Prealbumin Triglycerides Cholesterol LDL Cholesterol Direct HDL Cholesterol Urine pH Urine WBC (Auto) Urine Creatinine Urine Total Protein Fluid Total Protein Vancomycin Trough Rheumatoid Factor Complement C4 Miscellaneous Test Crossmatch 09/25/16 09/25/16 09/25/16 04:20 04:20 04:20 WBC RBC 2.58 L Hgb 7.0 L Hct 21.0 L MCV MCH 27 L MCHC RDW 23.8 H Plt Count Lymph % (Auto) [place] % (Auto) Lymph # [place] # Baso # Seg Neutrophils % Seg Neuts % (Manual) Lymphocytes % (Manual) 12.0 L Monocytes % (Manual) Eosinophils % (Manual) 7.0 H Basophils % (Manual) 2.0 H Nucleated RBC % Seg Neutrophils # Seg Neutrophils # Man Lymphocytes # (Manual) 0.9 L Monocytes # (Manual) Eosinophils # (Manual) 0.5 H Basophils # (Manual) PT INR Fibrinogen dRVVT Confirm Interp Factor V Activity POC ABG pH POC ABG pCO2 POC ABG pO2 ABG pO2 ABG HCO3 ABG Base Excess ABG Hemoglobin Oxyhemoglobin Sodium Potassium Chloride Carbon Dioxide 15 L BUN 72 H Creatinine 3.8 H Glucose POC Glucose Lactic Acid Calcium 6.0 L Phosphorus 4.60 H Magnesium 1.60 L Direct Bilirubin AST ALT Alkaline Phosphatase Lactate Dehydrogenase Troponin T C-Reactive Protein Total Protein Albumin Prealbumin Triglycerides Cholesterol LDL Cholesterol Direct HDL Cholesterol Urine pH Urine WBC (Auto) Urine Creatinine Urine Total Protein Fluid Total Protein Vancomycin Trough Rheumatoid Factor Complement C4 Miscellaneous Test Crossmatch 09/25/16 09/25/16 09/25/16 04:57 08:02 10:30 WBC RBC Hgb Hct MCV MCH MCHC RDW Plt Count Lymph % (Auto) [place] % (Auto) Lymph # [place] # Baso # Seg Neutrophils % Seg Neuts % (Manual) Lymphocytes % (Manual) Monocytes % (Manual) Eosinophils % (Manual) Basophils % (Manual) Nucleated RBC % Seg Neutrophils # Seg Neutrophils # Man Lymphocytes # (Manual) Monocytes # (Manual) Eosinophils # (Manual) Basophils # (Manual) PT INR Fibrinogen dRVVT Confirm Interp Factor V Activity POC ABG pH POC ABG pCO2 24.7 L POC ABG pO2 152 H ABG pO2 ABG HCO3 ABG Base Excess ABG Hemoglobin Oxyhemoglobin Sodium Potassium Chloride Carbon Dioxide BUN Creatinine Glucose POC Glucose 113 H Lactic Acid Calcium Phosphorus Magnesium Direct Bilirubin AST ALT Alkaline Phosphatase Lactate Dehydrogenase Troponin T C-Reactive Protein Total Protein Albumin Prealbumin Triglycerides Cholesterol LDL Cholesterol Direct HDL Cholesterol Urine pH Urine WBC (Auto) Urine Creatinine Urine Total Protein Fluid Total Protein Vancomycin Trough Rheumatoid Factor Complement C4 Miscellaneous Test Crossmatch See Detail 09/25/16 09/25/16 09/25/16 12:05 17:44 23:47 WBC RBC Hgb Hct MCV MCH MCHC RDW Plt Count Lymph % (Auto) [place] % (Auto) Lymph # [place] # Baso # Seg Neutrophils % Seg Neuts % (Manual) Lymphocytes % (Manual) Monocytes % (Manual) Eosinophils % (Manual) Basophils % (Manual) Nucleated RBC % Seg Neutrophils # Seg Neutrophils # Man Lymphocytes # (Manual) Monocytes # (Manual) Eosinophils # (Manual) Basophils # (Manual) PT INR Fibrinogen dRVVT Confirm Interp Factor V Activity POC ABG pH POC ABG pCO2 POC ABG pO2 ABG pO2 ABG HCO3 ABG Base Excess ABG Hemoglobin Oxyhemoglobin Sodium Potassium Chloride Carbon Dioxide BUN Creatinine Glucose POC Glucose 117 H 119 H 150 H Lactic Acid Calcium Phosphorus Magnesium Direct Bilirubin AST ALT Alkaline Phosphatase Lactate Dehydrogenase Troponin T C-Reactive Protein Total Protein Albumin Prealbumin Triglycerides Cholesterol LDL Cholesterol Direct HDL Cholesterol Urine pH Urine WBC (Auto) Urine Creatinine Urine Total Protein Fluid Total Protein Vancomycin Trough Rheumatoid Factor Complement C4 Miscellaneous Test Crossmatch 09/26/16 09/26/16 09/26/16 04:25 04:25 04:25 WBC RBC 2.65 L Hgb 7.4 L Hct 21.6 L MCV MCH MCHC RDW 22.5 H Plt Count Lymph % (Auto) [place] % (Auto) Lymph # [place] # Baso # Seg Neutrophils % Seg Neuts % (Manual) Lymphocytes % (Manual) 6.0 L Monocytes % (Manual) Eosinophils % (Manual) 11.0 H Basophils % (Manual) Nucleated RBC % Seg Neutrophils # Seg Neutrophils # Man Lymphocytes # (Manual) 0.4 L Monocytes # (Manual) Eosinophils # (Manual) 0.6 H Basophils # (Manual) PT INR Fibrinogen dRVVT Confirm Interp Factor V Activity POC ABG pH POC ABG pCO2 POC ABG pO2 ABG pO2 ABG HCO3 ABG Base Excess ABG Hemoglobin Oxyhemoglobin Sodium Potassium Chloride 97.0 L Carbon Dioxide 19 L BUN 43 H Creatinine 2.6 H Glucose 130 H POC Glucose Lactic Acid 4.40 H* Calcium 6.7 L Phosphorus Magnesium Direct Bilirubin AST ALT Alkaline Phosphatase Lactate Dehydrogenase Troponin T C-Reactive Protein Total Protein Albumin Prealbumin Triglycerides Cholesterol LDL Cholesterol Direct HDL Cholesterol Urine pH Urine WBC (Auto) Urine Creatinine Urine Total Protein Fluid Total Protein Vancomycin Trough Rheumatoid Factor Complement C4 Miscellaneous Test Crossmatch 09/26/16 09/26/16 09/26/16 05:20 11:44 12:12 WBC RBC Hgb Hct MCV MCH MCHC RDW Plt Count Lymph % (Auto) [place] % (Auto) Lymph # [place] # Baso # Seg Neutrophils % Seg Neuts % (Manual) Lymphocytes % (Manual) Monocytes % (Manual) Eosinophils % (Manual) Basophils % (Manual) Nucleated RBC % Seg Neutrophils # Seg Neutrophils # Man Lymphocytes # (Manual) Monocytes # (Manual) Eosinophils # (Manual) Basophils # (Manual) PT INR Fibrinogen dRVVT Confirm Interp Factor V Activity POC ABG pH POC ABG pCO2 27.0 L POC ABG pO2 69 L ABG pO2 ABG HCO3 ABG Base Excess ABG Hemoglobin Oxyhemoglobin Sodium Potassium Chloride Carbon Dioxide BUN Creatinine Glucose POC Glucose 121 H 128 H Lactic Acid Calcium Phosphorus Magnesium Direct Bilirubin AST ALT Alkaline Phosphatase Lactate Dehydrogenase Troponin T C-Reactive Protein Total Protein Albumin Prealbumin Triglycerides Cholesterol LDL Cholesterol Direct HDL Cholesterol Urine pH Urine WBC (Auto) Urine Creatinine Urine Total Protein Fluid Total Protein Vancomycin Trough Rheumatoid Factor Complement C4 Miscellaneous Test Crossmatch 09/26/16 09/26/16 09/27/16 18:31 23:40 08:20 WBC RBC Hgb Hct MCV MCH MCHC RDW Plt Count Lymph % (Auto) [place] % (Auto) Lymph # [place] # Baso # Seg Neutrophils % Seg Neuts % (Manual) Lymphocytes % (Manual) Monocytes % (Manual) Eosinophils % (Manual) Basophils % (Manual) Nucleated RBC % Seg Neutrophils # Seg Neutrophils # Man Lymphocytes # (Manual) Monocytes # (Manual) Eosinophils # (Manual) Basophils # (Manual) PT INR Fibrinogen dRVVT Confirm Interp Factor V Activity POC ABG pH POC ABG pCO2 POC ABG pO2 ABG pO2 ABG HCO3 ABG Base Excess ABG Hemoglobin Oxyhemoglobin Sodium Potassium Chloride Carbon Dioxide BUN Creatinine Glucose POC Glucose 120 H 133 H Lactic Acid 4.10 H* Calcium Phosphorus Magnesium Direct Bilirubin AST ALT Alkaline Phosphatase Lactate Dehydrogenase Troponin T C-Reactive Protein Total Protein Albumin Prealbumin Triglycerides Cholesterol LDL Cholesterol Direct HDL Cholesterol Urine pH Urine WBC (Auto) Urine Creatinine Urine Total Protein Fluid Total Protein Vancomycin Trough Rheumatoid Factor Complement C4 Miscellaneous Test Crossmatch 09/27/16 09/27/16 09/27/16 11:23 15:00 18:15 WBC RBC Hgb Hct MCV MCH MCHC RDW Plt Count Lymph % (Auto) [place] % (Auto) Lymph # [place] # Baso # Seg Neutrophils % Seg Neuts % (Manual) Lymphocytes % (Manual) Monocytes % (Manual) Eosinophils % (Manual) Basophils % (Manual) Nucleated RBC % Seg Neutrophils # Seg Neutrophils # Man Lymphocytes # (Manual) Monocytes # (Manual) Eosinophils # (Manual) Basophils # (Manual) PT INR Fibrinogen dRVVT Confirm Interp Factor V Activity POC ABG pH 7.459 H POC ABG pCO2 27.1 L POC ABG pO2 140 H ABG pO2 ABG HCO3 ABG Base Excess ABG Hemoglobin Oxyhemoglobin Sodium Potassium Chloride Carbon Dioxide BUN Creatinine Glucose POC Glucose 114 H 127 H Lactic Acid Calcium Phosphorus Magnesium Direct Bilirubin AST ALT Alkaline Phosphatase Lactate Dehydrogenase Troponin T C-Reactive Protein Total Protein Albumin Prealbumin Triglycerides Cholesterol LDL Cholesterol Direct HDL Cholesterol Urine pH Urine WBC (Auto) Urine Creatinine Urine Total Protein Fluid Total Protein Vancomycin Trough Rheumatoid Factor Complement C4 Miscellaneous Test Crossmatch 09/27/16 09/27/16 09/28/16 Unknown Unknown 03:45 WBC RBC 2.49 L Hgb 6.8 L Hct 20.7 L MCV MCH 27 L MCHC RDW 22.1 H Plt Count Lymph % (Auto) [place] % (Auto) Lymph # [place] # Baso # Seg Neutrophils % Seg Neuts % (Manual) 32.0 L Lymphocytes % (Manual) 12.0 L Monocytes % (Manual) 11.0 H Eosinophils % (Manual) 10.0 H Basophils % (Manual) Nucleated RBC % Seg Neutrophils # Seg Neutrophils # Man Lymphocytes # (Manual) 1.0 L Monocytes # (Manual) 0.9 H Eosinophils # (Manual) 0.8 H Basophils # (Manual) PT INR Fibrinogen dRVVT Confirm Interp Factor V Activity POC ABG pH POC ABG pCO2 POC ABG pO2 ABG pO2 ABG HCO3 ABG Base Excess ABG Hemoglobin Oxyhemoglobin Sodium 135 L 135 L Potassium 3.5 L Chloride 93.6 L 94.4 L Carbon Dioxide 17 L 21 L BUN 45 H 28 H Creatinine 3.3 H 2.5 H Glucose 106 H POC Glucose Lactic Acid Calcium 7.3 L 7.1 L Phosphorus Magnesium Direct Bilirubin AST ALT Alkaline Phosphatase Lactate Dehydrogenase Troponin T C-Reactive Protein Total Protein Albumin Prealbumin Triglycerides Cholesterol LDL Cholesterol Direct HDL Cholesterol Urine pH Urine WBC (Auto) Urine Creatinine Urine Total Protein Fluid Total Protein Vancomycin Trough Rheumatoid Factor Complement C4 Miscellaneous Test Crossmatch 09/28/16 09/28/16 09/28/16 03:45 07:25 11:58 WBC 13.3 H RBC 3.01 L Hgb 8.4 L Hct 25.0 L MCV MCH MCHC RDW 20.5 H Plt Count 128 L Lymph % (Auto) [place] % (Auto) Lymph # [place] # Baso # Seg Neutrophils % Seg Neuts % (Manual) Lymphocytes % (Manual) 7.0 L Monocytes % (Manual) Eosinophils % (Manual) 6.0 H Basophils % (Manual) Nucleated RBC % Seg Neutrophils # Seg Neutrophils # Man Lymphocytes # (Manual) 0.9 L Monocytes # (Manual) Eosinophils # (Manual) 0.8 H Basophils # (Manual) PT INR Fibrinogen dRVVT Confirm Interp Factor V Activity POC ABG pH POC ABG pCO2 POC ABG pO2 ABG pO2 ABG HCO3 ABG Base Excess ABG Hemoglobin Oxyhemoglobin Sodium Potassium Chloride Carbon Dioxide BUN Creatinine Glucose POC Glucose 121 H Lactic Acid 4.50 H* Calcium Phosphorus Magnesium Direct Bilirubin AST ALT Alkaline Phosphatase Lactate Dehydrogenase Troponin T C-Reactive Protein Total Protein Albumin Prealbumin Triglycerides Cholesterol LDL Cholesterol Direct HDL Cholesterol Urine pH Urine WBC (Auto) Urine Creatinine Urine Total Protein Fluid Total Protein Vancomycin Trough Rheumatoid Factor Complement C4 Miscellaneous Test Crossmatch 09/29/16 09/29/16 09/29/16 06:45 06:45 06:45 WBC 14.9 H RBC 2.74 L Hgb 7.6 L Hct 23.2 L MCV MCH MCHC RDW 20.5 H Plt Count 81 L Lymph % (Auto) [place] % (Auto) Lymph # [place] # Baso # Seg Neutrophils % Seg Neuts % (Manual) 81.0 H Lymphocytes % (Manual) 4.0 L Monocytes % (Manual) Eosinophils % (Manual) Basophils % (Manual) Nucleated RBC % Seg Neutrophils # Seg Neutrophils # Man 12.1 H Lymphocytes # (Manual) 0.6 L Monocytes # (Manual) Eosinophils # (Manual) Basophils # (Manual) PT INR Fibrinogen dRVVT Confirm Interp Factor V Activity POC ABG pH POC ABG pCO2 POC ABG pO2 ABG pO2 ABG HCO3 ABG Base Excess ABG Hemoglobin Oxyhemoglobin Sodium 133 L Potassium 3.4 L Chloride 92.5 L Carbon Dioxide 21 L BUN 33 H Creatinine 3.0 H Glucose POC Glucose Lactic Acid Calcium 6.6 L Phosphorus Magnesium 1.40 L Direct Bilirubin 0.9 H AST ALT Alkaline Phosphatase Lactate Dehydrogenase Troponin T C-Reactive Protein Total Protein 4.3 L Albumin 1.3 L Prealbumin Triglycerides Cholesterol LDL Cholesterol Direct HDL Cholesterol Urine pH Urine WBC (Auto) Urine Creatinine Urine Total Protein Fluid Total Protein Vancomycin Trough Rheumatoid Factor Complement C4 Miscellaneous Test Crossmatch 09/29/16 09/29/16 09/30/16 17:52 20:12 00:07 WBC RBC Hgb Hct MCV MCH MCHC RDW Plt Count Lymph % (Auto) [place] % (Auto) Lymph # [place] # Baso # Seg Neutrophils % Seg Neuts % (Manual) Lymphocytes % (Manual) Monocytes % (Manual) Eosinophils % (Manual) Basophils % (Manual) Nucleated RBC % Seg Neutrophils # Seg Neutrophils # Man Lymphocytes # (Manual) Monocytes # (Manual) Eosinophils # (Manual) Basophils # (Manual) PT INR Fibrinogen dRVVT Confirm Interp Factor V Activity POC ABG pH POC ABG pCO2 POC ABG pO2 ABG pO2 ABG HCO3 ABG Base Excess ABG Hemoglobin Oxyhemoglobin Sodium Potassium Chloride Carbon Dioxide BUN Creatinine Glucose POC Glucose 50 L 51 L Lactic Acid Calcium Phosphorus Magnesium Direct Bilirubin AST ALT Alkaline Phosphatase Lactate Dehydrogenase Troponin T 0.204 H* C-Reactive Protein Total Protein Albumin Prealbumin Triglycerides Cholesterol 31 L LDL Cholesterol Direct 4 L HDL Cholesterol 3 L Urine pH Urine WBC (Auto) Urine Creatinine Urine Total Protein Fluid Total Protein Vancomycin Trough Rheumatoid Factor Complement C4 Miscellaneous Test Crossmatch 09/30/16 09/30/16 09/30/16 01:30 05:15 06:10 WBC RBC Hgb Hct MCV MCH MCHC RDW Plt Count Lymph % (Auto) [place] % (Auto) Lymph # [place] # Baso # Seg Neutrophils % Seg Neuts % (Manual) Lymphocytes % (Manual) Monocytes % (Manual) Eosinophils % (Manual) Basophils % (Manual) Nucleated RBC % Seg Neutrophils # Seg Neutrophils # Man Lymphocytes # (Manual) Monocytes # (Manual) Eosinophils # (Manual) Basophils # (Manual) PT INR Fibrinogen dRVVT Confirm Interp Factor V Activity POC ABG pH POC ABG pCO2 POC ABG pO2 ABG pO2 ABG HCO3 ABG Base Excess ABG Hemoglobin Oxyhemoglobin Sodium 133 L Potassium 3.2 L Chloride 93.2 L Carbon Dioxide 19 L BUN 36 H Creatinine 3.2 H Glucose 104 H POC Glucose 167 H 146 H Lactic Acid Calcium 6.4 L Phosphorus Magnesium 1.60 L Direct Bilirubin AST ALT Alkaline Phosphatase Lactate Dehydrogenase Troponin T C-Reactive Protein Total Protein Albumin Prealbumin Triglycerides Cholesterol LDL Cholesterol Direct HDL Cholesterol Urine pH Urine WBC (Auto) Urine Creatinine Urine Total Protein Fluid Total Protein Vancomycin Trough Rheumatoid Factor Complement C4 Miscellaneous Test Crossmatch 09/30/16 09/30/16 09/30/16 11:26 13:39 18:38 WBC RBC Hgb Hct MCV MCH MCHC RDW Plt Count Lymph % (Auto) [place] % (Auto) Lymph # [place] # Baso # Seg Neutrophils % Seg Neuts % (Manual) Lymphocytes % (Manual) Monocytes % (Manual) Eosinophils % (Manual) Basophils % (Manual) Nucleated RBC % Seg Neutrophils # Seg Neutrophils # Man Lymphocytes # (Manual) Monocytes # (Manual) Eosinophils # (Manual) Basophils # (Manual) PT INR Fibrinogen dRVVT Confirm Interp Factor V Activity POC ABG pH 7.479 H POC ABG pCO2 29.8 L POC ABG pO2 117 H ABG pO2 ABG HCO3 ABG Base Excess ABG Hemoglobin Oxyhemoglobin Sodium Potassium Chloride Carbon Dioxide BUN Creatinine Glucose POC Glucose 140 H 122 H Lactic Acid Calcium Phosphorus Magnesium Direct Bilirubin AST ALT Alkaline Phosphatase Lactate Dehydrogenase Troponin T C-Reactive Protein Total Protein Albumin Prealbumin Triglycerides Cholesterol LDL Cholesterol Direct HDL Cholesterol Urine pH Urine WBC (Auto) Urine Creatinine Urine Total Protein Fluid Total Protein Vancomycin Trough Rheumatoid Factor Complement C4 Miscellaneous Test Crossmatch 10/01/16 10/01/16 10/01/16 06:00 06:00 12:37 WBC 12.6 H RBC 2.75 L Hgb 7.3 L Hct 23.3 L MCV MCH 27 L MCHC RDW 20.6 H Plt Count 72 L Lymph % (Auto) [place] % (Auto) Lymph # [place] # Baso # Seg Neutrophils % Seg Neuts % (Manual) 31.0 L Lymphocytes % (Manual) 8.0 L Monocytes % (Manual) Eosinophils % (Manual) Basophils % (Manual) Nucleated RBC % 3.0 H Seg Neutrophils # Seg Neutrophils # Man Lymphocytes # (Manual) 1.0 L Monocytes # (Manual) Eosinophils # (Manual) Basophils # (Manual) PT INR Fibrinogen dRVVT Confirm Interp Factor V Activity POC ABG pH POC ABG pCO2 POC ABG pO2 ABG pO2 ABG HCO3 ABG Base Excess ABG Hemoglobin Oxyhemoglobin Sodium 127 L Potassium Chloride 86.8 L Carbon Dioxide 20 L BUN 42 H Creatinine 3.5 H Glucose POC Glucose 65 L Lactic Acid Calcium 7.0 L Phosphorus Magnesium Direct Bilirubin AST ALT Alkaline Phosphatase Lactate Dehydrogenase Troponin T C-Reactive Protein Total Protein Albumin Prealbumin Triglycerides Cholesterol LDL Cholesterol Direct HDL Cholesterol Urine pH Urine WBC (Auto) Urine Creatinine Urine Total Protein Fluid Total Protein Vancomycin Trough Rheumatoid Factor Complement C4 Miscellaneous Test Crossmatch 10/01/16 10/01/16 10/02/16 17:39 23:32 00:59 WBC RBC Hgb Hct MCV MCH MCHC RDW Plt Count Lymph % (Auto) [place] % (Auto) Lymph # [place] # Baso # Seg Neutrophils % Seg Neuts % (Manual) Lymphocytes % (Manual) Monocytes % (Manual) Eosinophils % (Manual) Basophils % (Manual) Nucleated RBC % Seg Neutrophils # Seg Neutrophils # Man Lymphocytes # (Manual) Monocytes # (Manual) Eosinophils # (Manual) Basophils # (Manual) PT INR Fibrinogen dRVVT Confirm Interp Factor V Activity POC ABG pH POC ABG pCO2 POC ABG pO2 ABG pO2 ABG HCO3 ABG Base Excess ABG Hemoglobin Oxyhemoglobin Sodium Potassium Chloride Carbon Dioxide BUN Creatinine Glucose POC Glucose 107 H 52 L 145 H Lactic Acid Calcium Phosphorus Magnesium Direct Bilirubin AST ALT Alkaline Phosphatase Lactate Dehydrogenase Troponin T C-Reactive Protein Total Protein Albumin Prealbumin Triglycerides Cholesterol LDL Cholesterol Direct HDL Cholesterol Urine pH Urine WBC (Auto) Urine Creatinine Urine Total Protein Fluid Total Protein Vancomycin Trough Rheumatoid Factor Complement C4 Miscellaneous Test Crossmatch 10/02/16 10/02/16 10/02/16 10:30 10:50 10:50 WBC 14.7 H RBC 2.76 L Hgb 7.4 L Hct 23.6 L MCV MCH 27 L MCHC RDW 20.2 H Plt Count 79 L Lymph % (Auto) [place] % (Auto) Lymph # [place] # Baso # Seg Neutrophils % Seg Neuts % (Manual) 86.0 H Lymphocytes % (Manual) 6.0 L Monocytes % (Manual) Eosinophils % (Manual) Basophils % (Manual) Nucleated RBC % Seg Neutrophils # Seg Neutrophils # Man 12.6 H Lymphocytes # (Manual) 0.9 L Monocytes # (Manual) Eosinophils # (Manual) Basophils # (Manual) PT INR Fibrinogen dRVVT Confirm Interp Factor V Activity POC ABG pH 7.486 H POC ABG pCO2 30.1 L POC ABG pO2 108 H ABG pO2 ABG HCO3 ABG Base Excess ABG Hemoglobin Oxyhemoglobin Sodium 131 L Potassium 3.4 L Chloride 89.9 L Carbon Dioxide BUN 26 H Creatinine 2.6 H Glucose POC Glucose Lactic Acid Calcium 7.0 L Phosphorus Magnesium Direct Bilirubin AST ALT Alkaline Phosphatase Lactate Dehydrogenase Troponin T C-Reactive Protein Total Protein Albumin Prealbumin Triglycerides Cholesterol LDL Cholesterol Direct HDL Cholesterol Urine pH Urine WBC (Auto) Urine Creatinine Urine Total Protein Fluid Total Protein Vancomycin Trough Rheumatoid Factor Complement C4 Miscellaneous Test Crossmatch 10/02/16 10/03/16 10/03/16 23:45 00:45 05:10 WBC 12.9 H RBC 2.77 L Hgb 7.6 L Hct 23.7 L MCV MCH 27 L MCHC RDW 19.7 H Plt Count 89 L Lymph % (Auto) [place] % (Auto) Lymph # [place] # Baso # Seg Neutrophils % Seg Neuts % (Manual) Lymphocytes % (Manual) 8.0 L Monocytes % (Manual) Eosinophils % (Manual) Basophils % (Manual) Nucleated RBC % Seg Neutrophils # 11.9 H Seg Neutrophils # Man Lymphocytes # (Manual) 1.0 L Monocytes # (Manual) Eosinophils # (Manual) Basophils # (Manual) PT INR Fibrinogen dRVVT Confirm Interp Factor V Activity POC ABG pH POC ABG pCO2 POC ABG pO2 ABG pO2 ABG HCO3 ABG Base Excess ABG Hemoglobin Oxyhemoglobin Sodium Potassium Chloride Carbon Dioxide BUN Creatinine Glucose POC Glucose 55 L 199 H Lactic Acid Calcium Phosphorus Magnesium Direct Bilirubin AST ALT Alkaline Phosphatase Lactate Dehydrogenase Troponin T C-Reactive Protein Total Protein Albumin Prealbumin Triglycerides Cholesterol LDL Cholesterol Direct HDL Cholesterol Urine pH Urine WBC (Auto) Urine Creatinine Urine Total Protein Fluid Total Protein Vancomycin Trough Rheumatoid Factor Complement C4 Miscellaneous Test Crossmatch 10/03/16 10/03/16 10/03/16 05:10 12:14 13:18 WBC RBC Hgb Hct MCV MCH MCHC RDW Plt Count Lymph % (Auto) [place] % (Auto) Lymph # [place] # Baso # Seg Neutrophils % Seg Neuts % (Manual) Lymphocytes % (Manual) Monocytes % (Manual) Eosinophils % (Manual) Basophils % (Manual) Nucleated RBC % Seg Neutrophils # Seg Neutrophils # Man Lymphocytes # (Manual) Monocytes # (Manual) Eosinophils # (Manual) Basophils # (Manual) PT INR Fibrinogen dRVVT Confirm Interp Factor V Activity POC ABG pH POC ABG pCO2 POC ABG pO2 ABG pO2 ABG HCO3 ABG Base Excess ABG Hemoglobin Oxyhemoglobin Sodium 129 L Potassium 3.3 L Chloride 88.8 L Carbon Dioxide 20 L BUN 29 H Creatinine 2.8 H Glucose POC Glucose 68 L 127 H Lactic Acid Calcium 7.2 L Phosphorus Magnesium Direct Bilirubin AST ALT Alkaline Phosphatase Lactate Dehydrogenase Troponin T C-Reactive Protein Total Protein Albumin Prealbumin Triglycerides Cholesterol LDL Cholesterol Direct HDL Cholesterol Urine pH Urine WBC (Auto) Urine Creatinine Urine Total Protein Fluid Total Protein Vancomycin Trough Rheumatoid Factor Complement C4 Miscellaneous Test Crossmatch 10/03/16 10/03/16 10/03/16 14:42 18:21 19:09 WBC RBC Hgb Hct MCV MCH MCHC RDW Plt Count Lymph % (Auto) [place] % (Auto) Lymph # [place] # Baso # Seg Neutrophils % Seg Neuts % (Manual) Lymphocytes % (Manual) Monocytes % (Manual) Eosinophils % (Manual) Basophils % (Manual) Nucleated RBC % Seg Neutrophils # Seg Neutrophils # Man Lymphocytes # (Manual) Monocytes # (Manual) Eosinophils # (Manual) Basophils # (Manual) PT INR Fibrinogen dRVVT Confirm Interp Factor V Activity POC ABG pH 7.499 H POC ABG pCO2 28.4 L POC ABG pO2 44 L ABG pO2 ABG HCO3 ABG Base Excess ABG Hemoglobin Oxyhemoglobin Sodium Potassium Chloride Carbon Dioxide BUN Creatinine Glucose POC Glucose 64 L 205 H Lactic Acid Calcium Phosphorus Magnesium Direct Bilirubin AST ALT Alkaline Phosphatase Lactate Dehydrogenase Troponin T C-Reactive Protein Total Protein Albumin Prealbumin Triglycerides Cholesterol LDL Cholesterol Direct HDL Cholesterol Urine pH Urine WBC (Auto) Urine Creatinine Urine Total Protein Fluid Total Protein Vancomycin Trough Rheumatoid Factor Complement C4 Miscellaneous Test Crossmatch 10/03/16 10/04/16 10/04/16 23:33 04:18 06:30 WBC RBC 2.54 L Hgb 7.1 L Hct 21.7 L MCV MCH MCHC RDW 19.5 H Plt Count 76 L Lymph % (Auto) [place] % (Auto) Lymph # [place] # Baso # Seg Neutrophils % Seg Neuts % (Manual) 88.0 H Lymphocytes % (Manual) 6.0 L Monocytes % (Manual) Eosinophils % (Manual) Basophils % (Manual) Nucleated RBC % Seg Neutrophils # Seg Neutrophils # Man 8.8 H Lymphocytes # (Manual) 0.6 L Monocytes # (Manual) Eosinophils # (Manual) Basophils # (Manual) PT INR Fibrinogen dRVVT Confirm Interp Factor V Activity POC ABG pH 7.461 H POC ABG pCO2 33.6 L POC ABG pO2 211 H ABG pO2 ABG HCO3 ABG Base Excess ABG Hemoglobin Oxyhemoglobin Sodium Potassium Chloride Carbon Dioxide BUN Creatinine Glucose POC Glucose 136 H Lactic Acid Calcium Phosphorus Magnesium Direct Bilirubin AST ALT Alkaline Phosphatase Lactate Dehydrogenase Troponin T C-Reactive Protein Total Protein Albumin Prealbumin Triglycerides Cholesterol LDL Cholesterol Direct HDL Cholesterol Urine pH Urine WBC (Auto) Urine Creatinine Urine Total Protein Fluid Total Protein Vancomycin Trough Rheumatoid Factor Complement C4 Miscellaneous Test Crossmatch 10/04/16 10/04/16 10/04/16 06:30 11:45 17:54 WBC RBC Hgb Hct MCV MCH MCHC RDW Plt Count Lymph % (Auto) [place] % (Auto) Lymph # [place] # Baso # Seg Neutrophils % Seg Neuts % (Manual) Lymphocytes % (Manual) Monocytes % (Manual) Eosinophils % (Manual) Basophils % (Manual) Nucleated RBC % Seg Neutrophils # Seg Neutrophils # Man Lymphocytes # (Manual) Monocytes # (Manual) Eosinophils # (Manual) Basophils # (Manual) PT INR Fibrinogen dRVVT Confirm Interp Factor V Activity POC ABG pH POC ABG pCO2 POC ABG pO2 ABG pO2 ABG HCO3 ABG Base Excess ABG Hemoglobin Oxyhemoglobin Sodium 128 L Potassium Chloride 87.4 L Carbon Dioxide 20 L BUN 34 H Creatinine 2.9 H Glucose 127 H POC Glucose 158 H 160 H Lactic Acid Calcium 7.4 L Phosphorus Magnesium Direct Bilirubin AST ALT Alkaline Phosphatase Lactate Dehydrogenase Troponin T C-Reactive Protein Total Protein Albumin Prealbumin Triglycerides Cholesterol LDL Cholesterol Direct HDL Cholesterol Urine pH Urine WBC (Auto) Urine Creatinine Urine Total Protein Fluid Total Protein Vancomycin Trough Rheumatoid Factor Complement C4 Miscellaneous Test Crossmatch 10/04/16 10/05/16 10/05/16 23:25 04:30 05:00 WBC RBC 2.64 L Hgb 7.5 L Hct 22.6 L MCV MCH MCHC RDW 19.3 H Plt Count 80 L Lymph % (Auto) [place] % (Auto) Lymph # [place] # Baso # Seg Neutrophils % Seg Neuts % (Manual) Lymphocytes % (Manual) 12.0 L Monocytes % (Manual) Eosinophils % (Manual) Basophils % (Manual) Nucleated RBC % Seg Neutrophils # Seg Neutrophils # Man Lymphocytes # (Manual) Monocytes # (Manual) Eosinophils # (Manual) Basophils # (Manual) PT INR Fibrinogen dRVVT Confirm Interp Factor V Activity POC ABG pH 7.475 H POC ABG pCO2 33.3 L POC ABG pO2 140 H ABG pO2 ABG HCO3 ABG Base Excess ABG Hemoglobin Oxyhemoglobin Sodium Potassium Chloride Carbon Dioxide BUN Creatinine Glucose POC Glucose 141 H Lactic Acid Calcium Phosphorus Magnesium Direct Bilirubin AST ALT Alkaline Phosphatase Lactate Dehydrogenase Troponin T C-Reactive Protein Total Protein Albumin Prealbumin Triglycerides Cholesterol LDL Cholesterol Direct HDL Cholesterol Urine pH Urine WBC (Auto) Urine Creatinine Urine Total Protein Fluid Total Protein Vancomycin Trough Rheumatoid Factor Complement C4 Miscellaneous Test Crossmatch 10/05/16 10/05/16 10/05/16 05:00 05:09 12:58 WBC RBC Hgb Hct MCV MCH MCHC RDW Plt Count Lymph % (Auto) [place] % (Auto) Lymph # [place] # Baso # Seg Neutrophils % Seg Neuts % (Manual) Lymphocytes % (Manual) Monocytes % (Manual) Eosinophils % (Manual) Basophils % (Manual) Nucleated RBC % Seg Neutrophils # Seg Neutrophils # Man Lymphocytes # (Manual) Monocytes # (Manual) Eosinophils # (Manual) Basophils # (Manual) PT INR Fibrinogen dRVVT Confirm Interp Factor V Activity POC ABG pH POC ABG pCO2 POC ABG pO2 ABG pO2 ABG HCO3 ABG Base Excess ABG Hemoglobin Oxyhemoglobin Sodium 131 L Potassium Chloride 94.0 L Carbon Dioxide 20 L BUN 22 H Creatinine 2.0 H Glucose 123 H POC Glucose 166 H 179 H Lactic Acid Calcium 7.7 L Phosphorus 2.20 L D Magnesium Direct Bilirubin AST ALT Alkaline Phosphatase Lactate Dehydrogenase Troponin T C-Reactive Protein Total Protein Albumin Prealbumin Triglycerides Cholesterol LDL Cholesterol Direct HDL Cholesterol Urine pH Urine WBC (Auto) Urine Creatinine Urine Total Protein Fluid Total Protein Vancomycin Trough Rheumatoid Factor Complement C4 Miscellaneous Test Crossmatch 10/05/16 10/05/16 10/05/16 15:50 18:53 23:12 WBC RBC Hgb Hct MCV MCH MCHC RDW Plt Count Lymph % (Auto) [place] % (Auto) Lymph # [place] # Baso # Seg Neutrophils % Seg Neuts % (Manual) Lymphocytes % (Manual) Monocytes % (Manual) Eosinophils % (Manual) Basophils % (Manual) Nucleated RBC % Seg Neutrophils # Seg Neutrophils # Man Lymphocytes # (Manual) Monocytes # (Manual) Eosinophils # (Manual) Basophils # (Manual) PT INR Fibrinogen dRVVT Confirm Interp Factor V Activity POC ABG pH POC ABG pCO2 POC ABG pO2 ABG pO2 ABG HCO3 ABG Base Excess ABG Hemoglobin Oxyhemoglobin Sodium Potassium Chloride Carbon Dioxide BUN Creatinine Glucose POC Glucose 150 H 164 H Lactic Acid Calcium Phosphorus Magnesium Direct Bilirubin AST ALT Alkaline Phosphatase Lactate Dehydrogenase Troponin T C-Reactive Protein Total Protein Albumin Prealbumin Triglycerides Cholesterol LDL Cholesterol Direct HDL Cholesterol Urine pH Urine WBC (Auto) Urine Creatinine Urine Total Protein Fluid Total Protein Vancomycin Trough Rheumatoid Factor Complement C4 Miscellaneous Test Crossmatch See Detail 10/06/16 10/06/16 10/06/16 03:50 03:50 04:53 WBC RBC 3.00 L Hgb 8.6 L Hct 25.8 L MCV MCH MCHC RDW 17.9 H Plt Count 65 L Lymph % (Auto) [place] % (Auto) Lymph # [place] # Baso # Seg Neutrophils % Seg Neuts % (Manual) 30.0 L Lymphocytes % (Manual) 5.0 L Monocytes % (Manual) Eosinophils % (Manual) Basophils % (Manual) Nucleated RBC % Seg Neutrophils # Seg Neutrophils # Man Lymphocytes # (Manual) 0.4 L Monocytes # (Manual) Eosinophils # (Manual) Basophils # (Manual) PT INR Fibrinogen dRVVT Confirm Interp Factor V Activity POC ABG pH 7.310 L POC ABG pCO2 49.0 H POC ABG pO2 ABG pO2 ABG HCO3 ABG Base Excess ABG Hemoglobin Oxyhemoglobin Sodium 133 L Potassium Chloride 95.9 L Carbon Dioxide BUN 26 H Creatinine 2.0 H Glucose 116 H POC Glucose Lactic Acid Calcium 7.8 L Phosphorus Magnesium Direct Bilirubin AST ALT Alkaline Phosphatase Lactate Dehydrogenase Troponin T C-Reactive Protein Total Protein Albumin Prealbumin Triglycerides Cholesterol LDL Cholesterol Direct HDL Cholesterol Urine pH Urine WBC (Auto) Urine Creatinine Urine Total Protein Fluid Total Protein Vancomycin Trough Rheumatoid Factor Complement C4 Miscellaneous Test Crossmatch 10/06/16 10/06/16 10/06/16 05:23 11:52 18:34 WBC RBC Hgb Hct MCV MCH MCHC RDW Plt Count Lymph % (Auto) [place] % (Auto) Lymph # [place] # Baso # Seg Neutrophils % Seg Neuts % (Manual) Lymphocytes % (Manual) Monocytes % (Manual) Eosinophils % (Manual) Basophils % (Manual) Nucleated RBC % Seg Neutrophils # Seg Neutrophils # Man Lymphocytes # (Manual) Monocytes # (Manual) Eosinophils # (Manual) Basophils # (Manual) PT INR Fibrinogen dRVVT Confirm Interp Factor V Activity POC ABG pH POC ABG pCO2 POC ABG pO2 ABG pO2 ABG HCO3 ABG Base Excess ABG Hemoglobin Oxyhemoglobin Sodium Potassium Chloride Carbon Dioxide BUN Creatinine Glucose POC Glucose 126 H 116 H 129 H Lactic Acid Calcium Phosphorus Magnesium Direct Bilirubin AST ALT Alkaline Phosphatase Lactate Dehydrogenase Troponin T C-Reactive Protein Total Protein Albumin Prealbumin Triglycerides Cholesterol LDL Cholesterol Direct HDL Cholesterol Urine pH Urine WBC (Auto) Urine Creatinine Urine Total Protein Fluid Total Protein Vancomycin Trough Rheumatoid Factor Complement C4 Miscellaneous Test Crossmatch 10/07/16 10/07/16 10/07/16 03:45 05:00 10:00 WBC 17.0 H RBC 2.68 L Hgb 7.3 L Hct 25.3 L MCV MCH 27 L MCHC 29 L RDW 19.6 H Plt Count 74 L Lymph % (Auto) [place] % (Auto) Lymph # [place] # Baso # Seg Neutrophils % Seg Neuts % (Manual) Lymphocytes % (Manual) 12.0 L Monocytes % (Manual) Eosinophils % (Manual) Basophils % (Manual) Nucleated RBC % 4.0 H Seg Neutrophils # Seg Neutrophils # Man 10.7 H Lymphocytes # (Manual) Monocytes # (Manual) Eosinophils # (Manual) Basophils # (Manual) PT INR Fibrinogen dRVVT Confirm Interp Factor V Activity POC ABG pH POC ABG pCO2 POC ABG pO2 ABG pO2 ABG HCO3 ABG Base Excess ABG Hemoglobin Oxyhemoglobin Sodium 130 L Potassium 3.2 L Chloride 93.9 L Carbon Dioxide 20 L BUN 44 H Creatinine 2.7 H Glucose 129 H POC Glucose Lactic Acid Calcium 7.4 L Phosphorus Magnesium Direct Bilirubin AST ALT 6 L Alkaline Phosphatase 195 H Lactate Dehydrogenase Troponin T C-Reactive Protein Total Protein 4.9 L Albumin 1.0 L Prealbumin Triglycerides Cholesterol LDL Cholesterol Direct HDL Cholesterol Urine pH Urine WBC (Auto) Urine Creatinine Urine Total Protein Fluid Total Protein Vancomycin Trough Rheumatoid Factor Complement C4 Miscellaneous Test Flexitest 1 H Crossmatch 10/07/16 10/07/16 10/07/16 10:00 11:24 18:10 WBC RBC Hgb Hct MCV MCH MCHC RDW Plt Count Lymph % (Auto) [place] % (Auto) Lymph # [place] # Baso # Seg Neutrophils % Seg Neuts % (Manual) Lymphocytes % (Manual) Monocytes % (Manual) Eosinophils % (Manual) Basophils % (Manual) Nucleated RBC % Seg Neutrophils # Seg Neutrophils # Man Lymphocytes # (Manual) Monocytes # (Manual) Eosinophils # (Manual) Basophils # (Manual) PT INR Fibrinogen dRVVT Confirm Interp Factor V Activity POC ABG pH POC ABG pCO2 POC ABG pO2 ABG pO2 ABG HCO3 ABG Base Excess ABG Hemoglobin Oxyhemoglobin Sodium Potassium Chloride Carbon Dioxide BUN Creatinine Glucose POC Glucose 116 H 130 H Lactic Acid Calcium Phosphorus Magnesium Direct Bilirubin AST ALT Alkaline Phosphatase Lactate Dehydrogenase Troponin T C-Reactive Protein 19.40 H Total Protein Albumin Prealbumin Triglycerides Cholesterol LDL Cholesterol Direct HDL Cholesterol Urine pH Urine WBC (Auto) Urine Creatinine Urine Total Protein Fluid Total Protein Vancomycin Trough Rheumatoid Factor Complement C4 Miscellaneous Test Crossmatch 10/07/16 10/08/16 10/08/16 18:30 00:00 04:00 WBC RBC Hgb Hct MCV MCH MCHC RDW Plt Count Lymph % (Auto) [place] % (Auto) Lymph # [place] # Baso # Seg Neutrophils % Seg Neuts % (Manual) Lymphocytes % (Manual) Monocytes % (Manual) Eosinophils % (Manual) Basophils % (Manual) Nucleated RBC % Seg Neutrophils # Seg Neutrophils # Man Lymphocytes # (Manual) Monocytes # (Manual) Eosinophils # (Manual) Basophils # (Manual) PT INR Fibrinogen dRVVT Confirm Interp Factor V Activity POC ABG pH POC ABG pCO2 POC ABG pO2 ABG pO2 ABG HCO3 ABG Base Excess ABG Hemoglobin Oxyhemoglobin Sodium 132 L Potassium 3.3 L Chloride 93.6 L Carbon Dioxide 17 L BUN 59 H Creatinine 2.7 H Glucose 121 H POC Glucose 122 H Lactic Acid Calcium 7.6 L Phosphorus Magnesium Direct Bilirubin AST ALT Alkaline Phosphatase Lactate Dehydrogenase Troponin T C-Reactive Protein Total Protein Albumin Prealbumin Triglycerides Cholesterol LDL Cholesterol Direct HDL Cholesterol Urine pH Urine WBC (Auto) > 182.0 H Urine Creatinine Urine Total Protein Fluid Total Protein Vancomycin Trough Rheumatoid Factor Complement C4 Miscellaneous Test Crossmatch 10/08/16 10/08/16 10/08/16 04:30 05:30 11:51 WBC RBC 5.15 H Hgb 14.4 H D Hct 44.5 H D MCV MCH MCHC RDW 19.5 H Plt Count 56 L Lymph % (Auto) [place] % (Auto) Lymph # [place] # Baso # Seg Neutrophils % Seg Neuts % (Manual) 24.0 L Lymphocytes % (Manual) 8.0 L Monocytes % (Manual) Eosinophils % (Manual) Basophils % (Manual) Nucleated RBC % 9.0 H Seg Neutrophils # Seg Neutrophils # Man Lymphocytes # (Manual) 0.7 L Monocytes # (Manual) Eosinophils # (Manual) Basophils # (Manual) PT INR Fibrinogen dRVVT Confirm Interp Factor V Activity POC ABG pH POC ABG pCO2 POC ABG pO2 ABG pO2 ABG HCO3 ABG Base Excess ABG Hemoglobin Oxyhemoglobin Sodium Potassium Chloride Carbon Dioxide BUN Creatinine Glucose POC Glucose 125 H 150 H Lactic Acid Calcium Phosphorus Magnesium Direct Bilirubin AST ALT Alkaline Phosphatase Lactate Dehydrogenase Troponin T C-Reactive Protein Total Protein Albumin Prealbumin Triglycerides Cholesterol LDL Cholesterol Direct HDL Cholesterol Urine pH Urine WBC (Auto) Urine Creatinine Urine Total Protein Fluid Total Protein Vancomycin Trough Rheumatoid Factor Complement C4 Miscellaneous Test Crossmatch 10/08/16 10/08/16 10/08/16 12:49 17:07 19:30 WBC RBC Hgb 7.1 L D Hct 22.4 L D MCV MCH MCHC RDW Plt Count Lymph % (Auto) [place] % (Auto) Lymph # [place] # Baso # Seg Neutrophils % Seg Neuts % (Manual) Lymphocytes % (Manual) Monocytes % (Manual) Eosinophils % (Manual) Basophils % (Manual) Nucleated RBC % Seg Neutrophils # Seg Neutrophils # Man Lymphocytes # (Manual) Monocytes # (Manual) Eosinophils # (Manual) Basophils # (Manual) PT INR Fibrinogen dRVVT Confirm Interp Factor V Activity POC ABG pH POC ABG pCO2 28.2 L POC ABG pO2 111 H ABG pO2 ABG HCO3 ABG Base Excess ABG Hemoglobin Oxyhemoglobin Sodium Potassium Chloride Carbon Dioxide BUN Creatinine Glucose POC Glucose 145 H Lactic Acid Calcium Phosphorus Magnesium Direct Bilirubin AST ALT Alkaline Phosphatase Lactate Dehydrogenase Troponin T C-Reactive Protein Total Protein Albumin Prealbumin Triglycerides Cholesterol LDL Cholesterol Direct HDL Cholesterol Urine pH Urine WBC (Auto) Urine Creatinine Urine Total Protein Fluid Total Protein Vancomycin Trough Rheumatoid Factor Complement C4 Miscellaneous Test Crossmatch 10/08/16 10/09/16 10/09/16 19:30 03:45 03:45 WBC 12.6 H RBC 2.36 L Hgb 6.7 L Hct 21.1 L MCV MCH MCHC RDW 19.5 H Plt Count 75 L Lymph % (Auto) [place] % (Auto) Lymph # [place] # Baso # Seg Neutrophils % Seg Neuts % (Manual) Lymphocytes % (Manual) Monocytes % (Manual) 10.0 H Eosinophils % (Manual) Basophils % (Manual) Nucleated RBC % 3.0 H Seg Neutrophils # Seg Neutrophils # Man Lymphocytes # (Manual) Monocytes # (Manual) 1.3 H Eosinophils # (Manual) Basophils # (Manual) PT 18.0 H INR 1.41 H Fibrinogen dRVVT Confirm Interp Factor V Activity POC ABG pH POC ABG pCO2 POC ABG pO2 ABG pO2 ABG HCO3 ABG Base Excess ABG Hemoglobin Oxyhemoglobin Sodium 135 L Potassium Chloride Carbon Dioxide 17 L BUN 81 H Creatinine 3.2 H Glucose 109 H POC Glucose Lactic Acid Calcium 7.4 L Phosphorus 4.60 H D Magnesium Direct Bilirubin AST ALT Alkaline Phosphatase Lactate Dehydrogenase Troponin T C-Reactive Protein Total Protein Albumin Prealbumin Triglycerides Cholesterol LDL Cholesterol Direct HDL Cholesterol Urine pH Urine WBC (Auto) Urine Creatinine Urine Total Protein Fluid Total Protein Vancomycin Trough Rheumatoid Factor Complement C4 Miscellaneous Test Crossmatch 10/09/16 10/09/16 10/09/16 03:45 05:14 07:20 WBC RBC Hgb Hct MCV MCH MCHC RDW Plt Count Lymph % (Auto) [place] % (Auto) Lymph # [place] # Baso # Seg Neutrophils % Seg Neuts % (Manual) Lymphocytes % (Manual) Monocytes % (Manual) Eosinophils % (Manual) Basophils % (Manual) Nucleated RBC % Seg Neutrophils # Seg Neutrophils # Man Lymphocytes # (Manual) Monocytes # (Manual) Eosinophils # (Manual) Basophils # (Manual) PT 19.0 H INR 1.51 H Fibrinogen dRVVT Confirm Interp Factor V Activity POC ABG pH POC ABG pCO2 POC ABG pO2 ABG pO2 ABG HCO3 ABG Base Excess ABG Hemoglobin Oxyhemoglobin Sodium Potassium Chloride Carbon Dioxide BUN Creatinine Glucose POC Glucose 151 H Lactic Acid Calcium Phosphorus Magnesium Direct Bilirubin AST ALT Alkaline Phosphatase Lactate Dehydrogenase Troponin T C-Reactive Protein Total Protein Albumin Prealbumin Triglycerides Cholesterol LDL Cholesterol Direct HDL Cholesterol Urine pH Urine WBC (Auto) Urine Creatinine Urine Total Protein Fluid Total Protein Vancomycin Trough Rheumatoid Factor Complement C4 Miscellaneous Test Crossmatch See Detail 10/09/16 10/09/16 10/09/16 11:46 16:20 16:43 WBC RBC Hgb 7.2 L Hct 22.2 L MCV MCH MCHC RDW Plt Count Lymph % (Auto) [place] % (Auto) Lymph # [place] # Baso # Seg Neutrophils % Seg Neuts % (Manual) Lymphocytes % (Manual) Monocytes % (Manual) Eosinophils % (Manual) Basophils % (Manual) Nucleated RBC % Seg Neutrophils # Seg Neutrophils # Man Lymphocytes # (Manual) Monocytes # (Manual) Eosinophils # (Manual) Basophils # (Manual) PT INR Fibrinogen dRVVT Confirm Interp Factor V Activity POC ABG pH POC ABG pCO2 POC ABG pO2 ABG pO2 ABG HCO3 ABG Base Excess ABG Hemoglobin Oxyhemoglobin Sodium Potassium Chloride Carbon Dioxide BUN Creatinine Glucose POC Glucose 133 H 141 H Lactic Acid Calcium Phosphorus Magnesium Direct Bilirubin AST ALT Alkaline Phosphatase Lactate Dehydrogenase Troponin T C-Reactive Protein Total Protein Albumin Prealbumin Triglycerides Cholesterol LDL Cholesterol Direct HDL Cholesterol Urine pH Urine WBC (Auto) Urine Creatinine Urine Total Protein Fluid Total Protein Vancomycin Trough Rheumatoid Factor Complement C4 Miscellaneous Test Crossmatch 10/10/16 10/10/16 10/10/16 05:00 05:00 11:19 WBC 18.5 H RBC 2.19 L Hgb 6.4 L Hct 19.6 L* MCV MCH MCHC RDW 19.3 H Plt Count 93 L Lymph % (Auto) [place] % (Auto) Lymph # [place] # Baso # Seg Neutrophils % Seg Neuts % (Manual) Lymphocytes % (Manual) 10.0 L Monocytes % (Manual) Eosinophils % (Manual) Basophils % (Manual) Nucleated RBC % 4.0 H Seg Neutrophils # Seg Neutrophils # Man 11.3 H Lymphocytes # (Manual) Monocytes # (Manual) Eosinophils # (Manual) Basophils # (Manual) PT INR Fibrinogen dRVVT Confirm Interp Factor V Activity POC ABG pH POC ABG pCO2 POC ABG pO2 ABG pO2 ABG HCO3 ABG Base Excess ABG Hemoglobin Oxyhemoglobin Sodium Potassium 5.7 H D Chloride Carbon Dioxide 16 L BUN 94 H Creatinine 3.1 H Glucose 131 H POC Glucose 153 H Lactic Acid Calcium 8.2 L Phosphorus 5.10 H Magnesium 2.40 H Direct Bilirubin 0.3 H AST ALT < 5 L Alkaline Phosphatase 319 H Lactate Dehydrogenase Troponin T C-Reactive Protein Total Protein 5.1 L Albumin 1.0 L Prealbumin Triglycerides Cholesterol LDL Cholesterol Direct HDL Cholesterol Urine pH Urine WBC (Auto) Urine Creatinine Urine Total Protein Fluid Total Protein Vancomycin Trough Rheumatoid Factor Complement C4 Miscellaneous Test Crossmatch 10/10/16 10/10/16 10/11/16 17:50 23:30 04:15 WBC RBC Hgb Hct MCV MCH MCHC RDW Plt Count Lymph % (Auto) [place] % (Auto) Lymph # [place] # Baso # Seg Neutrophils % Seg Neuts % (Manual) Lymphocytes % (Manual) Monocytes % (Manual) Eosinophils % (Manual) Basophils % (Manual) Nucleated RBC % Seg Neutrophils # Seg Neutrophils # Man Lymphocytes # (Manual) Monocytes # (Manual) Eosinophils # (Manual) Basophils # (Manual) PT INR Fibrinogen dRVVT Confirm Interp Factor V Activity POC ABG pH POC ABG pCO2 POC ABG pO2 ABG pO2 ABG HCO3 ABG Base Excess ABG Hemoglobin Oxyhemoglobin Sodium Potassium Chloride 96.4 L Carbon Dioxide 21 L BUN 57 H Creatinine 2.1 H Glucose 151 H POC Glucose 146 H 141 H Lactic Acid Calcium 8.3 L Phosphorus Magnesium Direct Bilirubin AST ALT Alkaline Phosphatase Lactate Dehydrogenase Troponin T C-Reactive Protein Total Protein Albumin Prealbumin Triglycerides Cholesterol LDL Cholesterol Direct HDL Cholesterol Urine pH Urine WBC (Auto) Urine Creatinine Urine Total Protein Fluid Total Protein Vancomycin Trough Rheumatoid Factor Complement C4 Miscellaneous Test Crossmatch 10/11/16 10/11/16 10/11/16 04:15 04:15 05:30 WBC 28.3 H RBC 3.12 L Hgb 9.3 L Hct 28.7 L D MCV MCH MCHC RDW 17.7 H Plt Count 128 L Lymph % (Auto) [place] % (Auto) Lymph # [place] # Baso # Seg Neutrophils % Seg Neuts % (Manual) Lymphocytes % (Manual) Monocytes % (Manual) Eosinophils % (Manual) Basophils % (Manual) Nucleated RBC % Seg Neutrophils # Seg Neutrophils # Man Lymphocytes # (Manual) Monocytes # (Manual) Eosinophils # (Manual) Basophils # (Manual) PT INR Fibrinogen dRVVT Confirm Interp Factor V Activity POC ABG pH POC ABG pCO2 POC ABG pO2 ABG pO2 ABG HCO3 ABG Base Excess ABG Hemoglobin Oxyhemoglobin Sodium Potassium Chloride Carbon Dioxide BUN Creatinine Glucose POC Glucose 167 H Lactic Acid Calcium Phosphorus Magnesium Direct Bilirubin AST ALT Alkaline Phosphatase Lactate Dehydrogenase Troponin T C-Reactive Protein 15.80 H Total Protein Albumin Prealbumin Triglycerides Cholesterol LDL Cholesterol Direct HDL Cholesterol Urine pH Urine WBC (Auto) Urine Creatinine Urine Total Protein Fluid Total Protein Vancomycin Trough Rheumatoid Factor Complement C4 Miscellaneous Test Crossmatch 10/11/16 10/11/16 10/11/16 11:40 15:49 23:57 WBC RBC Hgb Hct MCV MCH MCHC RDW Plt Count Lymph % (Auto) [place] % (Auto) Lymph # [place] # Baso # Seg Neutrophils % Seg Neuts % (Manual) Lymphocytes % (Manual) Monocytes % (Manual) Eosinophils % (Manual) Basophils % (Manual) Nucleated RBC % Seg Neutrophils # Seg Neutrophils # Man Lymphocytes # (Manual) Monocytes # (Manual) Eosinophils # (Manual) Basophils # (Manual) PT INR Fibrinogen dRVVT Confirm Interp Factor V Activity POC ABG pH POC ABG pCO2 POC ABG pO2 ABG pO2 ABG HCO3 ABG Base Excess ABG Hemoglobin Oxyhemoglobin Sodium Potassium Chloride Carbon Dioxide BUN Creatinine Glucose POC Glucose 139 H 168 H 161 H Lactic Acid Calcium Phosphorus Magnesium Direct Bilirubin AST ALT Alkaline Phosphatase Lactate Dehydrogenase Troponin T C-Reactive Protein Total Protein Albumin Prealbumin Triglycerides Cholesterol LDL Cholesterol Direct HDL Cholesterol Urine pH Urine WBC (Auto) Urine Creatinine Urine Total Protein Fluid Total Protein Vancomycin Trough Rheumatoid Factor Complement C4 Miscellaneous Test Crossmatch 10/12/16 10/12/16 10/12/16 04:40 04:40 05:44 WBC 22.5 H RBC 2.88 L Hgb 8.8 L Hct 26.8 L MCV MCH MCHC RDW 17.8 H Plt Count Lymph % (Auto) [place] % (Auto) Lymph # [place] # Baso # Seg Neutrophils % Seg Neuts % (Manual) Lymphocytes % (Manual) Monocytes % (Manual) Eosinophils % (Manual) Basophils % (Manual) Nucleated RBC % Seg Neutrophils # Seg Neutrophils # Man Lymphocytes # (Manual) Monocytes # (Manual) Eosinophils # (Manual) Basophils # (Manual) PT INR Fibrinogen dRVVT Confirm Interp Factor V Activity POC ABG pH POC ABG pCO2 POC ABG pO2 ABG pO2 ABG HCO3 ABG Base Excess ABG Hemoglobin Oxyhemoglobin Sodium 134 L Potassium Chloride 93.0 L Carbon Dioxide BUN 74 H Creatinine 2.5 H Glucose 137 H POC Glucose 158 H Lactic Acid Calcium 8.2 L Phosphorus Magnesium Direct Bilirubin AST ALT Alkaline Phosphatase Lactate Dehydrogenase Troponin T C-Reactive Protein Total Protein Albumin Prealbumin Triglycerides Cholesterol LDL Cholesterol Direct HDL Cholesterol Urine pH Urine WBC (Auto) Urine Creatinine Urine Total Protein Fluid Total Protein Vancomycin Trough Rheumatoid Factor Complement C4 Miscellaneous Test Crossmatch 10/12/16 10/12/16 10/12/16 12:27 18:18 23:46 WBC RBC Hgb Hct MCV MCH MCHC RDW Plt Count Lymph % (Auto) [place] % (Auto) Lymph # [place] # Baso # Seg Neutrophils % Seg Neuts % (Manual) Lymphocytes % (Manual) Monocytes % (Manual) Eosinophils % (Manual) Basophils % (Manual) Nucleated RBC % Seg Neutrophils # Seg Neutrophils # Man Lymphocytes # (Manual) Monocytes # (Manual) Eosinophils # (Manual) Basophils # (Manual) PT INR Fibrinogen dRVVT Confirm Interp Factor V Activity POC ABG pH POC ABG pCO2 POC ABG pO2 ABG pO2 ABG HCO3 ABG Base Excess ABG Hemoglobin Oxyhemoglobin Sodium Potassium Chloride Carbon Dioxide BUN Creatinine Glucose POC Glucose 153 H 140 H 150 H Lactic Acid Calcium Phosphorus Magnesium Direct Bilirubin AST ALT Alkaline Phosphatase Lactate Dehydrogenase Troponin T C-Reactive Protein Total Protein Albumin Prealbumin Triglycerides Cholesterol LDL Cholesterol Direct HDL Cholesterol Urine pH Urine WBC (Auto) Urine Creatinine Urine Total Protein Fluid Total Protein Vancomycin Trough Rheumatoid Factor Complement C4 Miscellaneous Test Crossmatch 10/13/16 10/13/16 10/13/16 06:22 09:20 12:29 WBC RBC Hgb Hct MCV MCH MCHC RDW Plt Count Lymph % (Auto) [place] % (Auto) Lymph # [place] # Baso # Seg Neutrophils % Seg Neuts % (Manual) Lymphocytes % (Manual) Monocytes % (Manual) Eosinophils % (Manual) Basophils % (Manual) Nucleated RBC % Seg Neutrophils # Seg Neutrophils # Man Lymphocytes # (Manual) Monocytes # (Manual) Eosinophils # (Manual) Basophils # (Manual) PT INR Fibrinogen dRVVT Confirm Interp Factor V Activity POC ABG pH POC ABG pCO2 POC ABG pO2 ABG pO2 ABG HCO3 ABG Base Excess ABG Hemoglobin Oxyhemoglobin Sodium Potassium Chloride Carbon Dioxide BUN Creatinine Glucose POC Glucose 165 H 193 H Lactic Acid Calcium Phosphorus Magnesium Direct Bilirubin AST ALT Alkaline Phosphatase Lactate Dehydrogenase Troponin T C-Reactive Protein Total Protein Albumin Prealbumin Triglycerides Cholesterol LDL Cholesterol Direct HDL Cholesterol Urine pH Urine WBC (Auto) Urine Creatinine Urine Total Protein Fluid Total Protein Vancomycin Trough Rheumatoid Factor Complement C4 Miscellaneous Test Flexitest 1 H Crossmatch 10/13/16 10/13/16 10/13/16 18:09 Unknown Unknown WBC 23.4 H RBC 2.83 L Hgb 8.7 L Hct 26.1 L MCV MCH MCHC RDW 18.1 H Plt Count Lymph % (Auto) [place] % (Auto) Lymph # [place] # Baso # Seg Neutrophils % Seg Neuts % (Manual) Lymphocytes % (Manual) Monocytes % (Manual) Eosinophils % (Manual) Basophils % (Manual) Nucleated RBC % Seg Neutrophils # Seg Neutrophils # Man Lymphocytes # (Manual) Monocytes # (Manual) Eosinophils # (Manual) Basophils # (Manual) PT INR Fibrinogen dRVVT Confirm Interp Factor V Activity POC ABG pH POC ABG pCO2 POC ABG pO2 ABG pO2 ABG HCO3 ABG Base Excess ABG Hemoglobin Oxyhemoglobin Sodium Potassium Chloride 95.8 L Carbon Dioxide BUN 82 H Creatinine 2.6 H Glucose 152 H POC Glucose 166 H Lactic Acid Calcium Phosphorus Magnesium Direct Bilirubin AST ALT Alkaline Phosphatase Lactate Dehydrogenase Troponin T C-Reactive Protein Total Protein Albumin Prealbumin Triglycerides Cholesterol LDL Cholesterol Direct HDL Cholesterol Urine pH Urine WBC (Auto) Urine Creatinine Urine Total Protein Fluid Total Protein Vancomycin Trough Rheumatoid Factor Complement C4 Miscellaneous Test Crossmatch 10/14/16 10/14/16 10/14/16 05:38 06:35 08:10 WBC 20.7 H RBC 2.81 L Hgb 8.4 L Hct 27.2 L MCV MCH MCHC RDW 19.4 H Plt Count Lymph % (Auto) [place] % (Auto) Lymph # [place] # Baso # Seg Neutrophils % Seg Neuts % (Manual) Lymphocytes % (Manual) Monocytes % (Manual) Eosinophils % (Manual) Basophils % (Manual) Nucleated RBC % Seg Neutrophils # Seg Neutrophils # Man Lymphocytes # (Manual) Monocytes # (Manual) Eosinophils # (Manual) Basophils # (Manual) PT INR Fibrinogen dRVVT Confirm Interp Factor V Activity POC ABG pH POC ABG pCO2 POC ABG pO2 ABG pO2 ABG HCO3 ABG Base Excess ABG Hemoglobin Oxyhemoglobin Sodium Potassium Chloride Carbon Dioxide BUN 58 H Creatinine 1.9 H Glucose 169 H POC Glucose 195 H Lactic Acid Calcium Phosphorus Magnesium Direct Bilirubin AST ALT Alkaline Phosphatase Lactate Dehydrogenase Troponin T C-Reactive Protein Total Protein Albumin Prealbumin Triglycerides Cholesterol LDL Cholesterol Direct HDL Cholesterol Urine pH Urine WBC (Auto) Urine Creatinine Urine Total Protein Fluid Total Protein Vancomycin Trough Rheumatoid Factor Complement C4 Miscellaneous Test Crossmatch 10/14/16 10/14/16 10/14/16 11:44 17:13 23:28 WBC RBC Hgb Hct MCV MCH MCHC RDW Plt Count Lymph % (Auto) [place] % (Auto) Lymph # [place] # Baso # Seg Neutrophils % Seg Neuts % (Manual) Lymphocytes % (Manual) Monocytes % (Manual) Eosinophils % (Manual) Basophils % (Manual) Nucleated RBC % Seg Neutrophils # Seg Neutrophils # Man Lymphocytes # (Manual) Monocytes # (Manual) Eosinophils # (Manual) Basophils # (Manual) PT INR Fibrinogen dRVVT Confirm Interp Factor V Activity POC ABG pH POC ABG pCO2 POC ABG pO2 ABG pO2 ABG HCO3 ABG Base Excess ABG Hemoglobin Oxyhemoglobin Sodium Potassium Chloride Carbon Dioxide BUN Creatinine Glucose POC Glucose 174 H 121 H 151 H Lactic Acid Calcium Phosphorus Magnesium Direct Bilirubin AST ALT Alkaline Phosphatase Lactate Dehydrogenase Troponin T C-Reactive Protein Total Protein Albumin Prealbumin Triglycerides Cholesterol LDL Cholesterol Direct HDL Cholesterol Urine pH Urine WBC (Auto) Urine Creatinine Urine Total Protein Fluid Total Protein Vancomycin Trough Rheumatoid Factor Complement C4 Miscellaneous Test Crossmatch 10/15/16 10/15/16 10/15/16 05:06 12:26 17:48 WBC RBC Hgb Hct MCV MCH MCHC RDW Plt Count Lymph % (Auto) [place] % (Auto) Lymph # [place] # Baso # Seg Neutrophils % Seg Neuts % (Manual) Lymphocytes % (Manual) Monocytes % (Manual) Eosinophils % (Manual) Basophils % (Manual) Nucleated RBC % Seg Neutrophils # Seg Neutrophils # Man Lymphocytes # (Manual) Monocytes # (Manual) Eosinophils # (Manual) Basophils # (Manual) PT INR Fibrinogen dRVVT Confirm Interp Factor V Activity POC ABG pH POC ABG pCO2 POC ABG pO2 ABG pO2 ABG HCO3 ABG Base Excess ABG Hemoglobin Oxyhemoglobin Sodium Potassium Chloride Carbon Dioxide BUN Creatinine Glucose POC Glucose 151 H 149 H 153 H Lactic Acid Calcium Phosphorus Magnesium Direct Bilirubin AST ALT Alkaline Phosphatase Lactate Dehydrogenase Troponin T C-Reactive Protein Total Protein Albumin Prealbumin Triglycerides Cholesterol LDL Cholesterol Direct HDL Cholesterol Urine pH Urine WBC (Auto) Urine Creatinine Urine Total Protein Fluid Total Protein Vancomycin Trough Rheumatoid Factor Complement C4 Miscellaneous Test Crossmatch 10/15/16 10/15/16 10/16/16 Unknown Unknown 00:02 WBC 23.4 H RBC 2.78 L Hgb 8.5 L Hct 25.7 L MCV MCH MCHC RDW 18.7 H Plt Count Lymph % (Auto) [place] % (Auto) Lymph # [place] # Baso # Seg Neutrophils % Seg Neuts % (Manual) Lymphocytes % (Manual) Monocytes % (Manual) Eosinophils % (Manual) Basophils % (Manual) Nucleated RBC % Seg Neutrophils # Seg Neutrophils # Man Lymphocytes # (Manual) Monocytes # (Manual) Eosinophils # (Manual) Basophils # (Manual) PT INR Fibrinogen dRVVT Confirm Interp Factor V Activity POC ABG pH POC ABG pCO2 POC ABG pO2 ABG pO2 ABG HCO3 ABG Base Excess ABG Hemoglobin Oxyhemoglobin Sodium Potassium Chloride Carbon Dioxide BUN 73 H Creatinine 2.3 H Glucose 120 H POC Glucose 137 H Lactic Acid Calcium Phosphorus Magnesium Direct Bilirubin AST ALT Alkaline Phosphatase Lactate Dehydrogenase Troponin T C-Reactive Protein Total Protein Albumin Prealbumin Triglycerides Cholesterol LDL Cholesterol Direct HDL Cholesterol Urine pH Urine WBC (Auto) Urine Creatinine Urine Total Protein Fluid Total Protein Vancomycin Trough Rheumatoid Factor Complement C4 Miscellaneous Test Crossmatch 10/16/16 10/16/16 10/16/16 05:44 06:25 06:25 WBC 22.5 H RBC 2.76 L Hgb 8.3 L Hct 25.2 L MCV MCH MCHC RDW 18.3 H Plt Count Lymph % (Auto) [place] % (Auto) Lymph # [place] # Baso # Seg Neutrophils % Seg Neuts % (Manual) Lymphocytes % (Manual) Monocytes % (Manual) Eosinophils % (Manual) Basophils % (Manual) Nucleated RBC % Seg Neutrophils # Seg Neutrophils # Man Lymphocytes # (Manual) Monocytes # (Manual) Eosinophils # (Manual) Basophils # (Manual) PT INR Fibrinogen dRVVT Confirm Interp Factor V Activity POC ABG pH POC ABG pCO2 POC ABG pO2 ABG pO2 ABG HCO3 ABG Base Excess ABG Hemoglobin Oxyhemoglobin Sodium Potassium Chloride Carbon Dioxide BUN 92 H Creatinine 3.0 H Glucose 138 H POC Glucose 110 H Lactic Acid Calcium Phosphorus Magnesium Direct Bilirubin AST ALT Alkaline Phosphatase Lactate Dehydrogenase Troponin T C-Reactive Protein Total Protein Albumin Prealbumin Triglycerides Cholesterol LDL Cholesterol Direct HDL Cholesterol Urine pH Urine WBC (Auto) Urine Creatinine Urine Total Protein Fluid Total Protein Vancomycin Trough Rheumatoid Factor Complement C4 Miscellaneous Test Crossmatch 10/16/16 10/16/16 10/16/16 11:27 11:48 17:36 WBC RBC Hgb Hct MCV MCH MCHC RDW Plt Count Lymph % (Auto) [place] % (Auto) Lymph # [place] # Baso # Seg Neutrophils % Seg Neuts % (Manual) Lymphocytes % (Manual) Monocytes % (Manual) Eosinophils % (Manual) Basophils % (Manual) Nucleated RBC % Seg Neutrophils # Seg Neutrophils # Man Lymphocytes # (Manual) Monocytes # (Manual) Eosinophils # (Manual) Basophils # (Manual) PT INR Fibrinogen dRVVT Confirm Interp Factor V Activity POC ABG pH 7.582 H POC ABG pCO2 27.4 L POC ABG pO2 110 H ABG pO2 ABG HCO3 ABG Base Excess ABG Hemoglobin Oxyhemoglobin Sodium Potassium Chloride Carbon Dioxide BUN Creatinine Glucose POC Glucose 121 H 133 H Lactic Acid Calcium Phosphorus Magnesium Direct Bilirubin AST ALT Alkaline Phosphatase Lactate Dehydrogenase Troponin T C-Reactive Protein Total Protein Albumin Prealbumin Triglycerides Cholesterol LDL Cholesterol Direct HDL Cholesterol Urine pH Urine WBC (Auto) Urine Creatinine Urine Total Protein Fluid Total Protein Vancomycin Trough Rheumatoid Factor Complement C4 Miscellaneous Test Crossmatch 10/16/16 10/17/16 10/17/16 20:48 04:24 04:24 WBC 21.4 H RBC 2.72 L Hgb 8.0 L Hct 25.2 L MCV MCH MCHC RDW 18.0 H Plt Count Lymph % (Auto) [place] % (Auto) Lymph # [place] # Baso # Seg Neutrophils % Seg Neuts % (Manual) Lymphocytes % (Manual) Monocytes % (Manual) Eosinophils % (Manual) Basophils % (Manual) Nucleated RBC % Seg Neutrophils # Seg Neutrophils # Man Lymphocytes # (Manual) Monocytes # (Manual) Eosinophils # (Manual) Basophils # (Manual) PT INR Fibrinogen dRVVT Confirm Interp Factor V Activity POC ABG pH 7.561 H POC ABG pCO2 24.4 L POC ABG pO2 77 L ABG pO2 ABG HCO3 ABG Base Excess ABG Hemoglobin Oxyhemoglobin Sodium 148 H Potassium Chloride Carbon Dioxide BUN 104 H Creatinine 3.0 H Glucose 149 H POC Glucose Lactic Acid Calcium Phosphorus Magnesium Direct Bilirubin AST ALT Alkaline Phosphatase 138 H Lactate Dehydrogenase Troponin T C-Reactive Protein Total Protein 6.2 L Albumin 1.5 L Prealbumin Triglycerides Cholesterol LDL Cholesterol Direct HDL Cholesterol Urine pH Urine WBC (Auto) Urine Creatinine Urine Total Protein Fluid Total Protein Vancomycin Trough Rheumatoid Factor Complement C4 Miscellaneous Test Crossmatch 10/17/16 10/17/16 10/17/16 06:02 12:17 17:14 WBC RBC Hgb Hct MCV MCH MCHC RDW Plt Count Lymph % (Auto) [place] % (Auto) Lymph # [place] # Baso # Seg Neutrophils % Seg Neuts % (Manual) Lymphocytes % (Manual) Monocytes % (Manual) Eosinophils % (Manual) Basophils % (Manual) Nucleated RBC % Seg Neutrophils # Seg Neutrophils # Man Lymphocytes # (Manual) Monocytes # (Manual) Eosinophils # (Manual) Basophils # (Manual) PT INR Fibrinogen dRVVT Confirm Interp Factor V Activity POC ABG pH POC ABG pCO2 POC ABG pO2 ABG pO2 ABG HCO3 ABG Base Excess ABG Hemoglobin Oxyhemoglobin Sodium Potassium Chloride Carbon Dioxide BUN Creatinine Glucose POC Glucose 170 H 167 H 126 H Lactic Acid Calcium Phosphorus Magnesium Direct Bilirubin AST ALT Alkaline Phosphatase Lactate Dehydrogenase Troponin T C-Reactive Protein Total Protein Albumin Prealbumin Triglycerides Cholesterol LDL Cholesterol Direct HDL Cholesterol Urine pH Urine WBC (Auto) Urine Creatinine Urine Total Protein Fluid Total Protein Vancomycin Trough Rheumatoid Factor Complement C4 Miscellaneous Test Crossmatch 10/17/16 10/18/16 10/18/16 23:17 04:00 04:00 WBC 20.7 H RBC 2.47 L Hgb 7.4 L Hct 22.9 L MCV MCH MCHC RDW 17.5 H Plt Count Lymph % (Auto) [place] % (Auto) Lymph # [place] # Baso # Seg Neutrophils % Seg Neuts % (Manual) Lymphocytes % (Manual) Monocytes % (Manual) Eosinophils % (Manual) Basophils % (Manual) Nucleated RBC % Seg Neutrophils # Seg Neutrophils # Man Lymphocytes # (Manual) Monocytes # (Manual) Eosinophils # (Manual) Basophils # (Manual) PT INR Fibrinogen dRVVT Confirm Interp Factor V Activity POC ABG pH POC ABG pCO2 POC ABG pO2 ABG pO2 ABG HCO3 ABG Base Excess ABG Hemoglobin Oxyhemoglobin Sodium 149 H Potassium Chloride 107.9 H Carbon Dioxide 20 L BUN 117 H Creatinine 3.2 H Glucose 119 H POC Glucose 121 H Lactic Acid Calcium Phosphorus Magnesium Direct Bilirubin AST ALT Alkaline Phosphatase Lactate Dehydrogenase Troponin T C-Reactive Protein Total Protein Albumin Prealbumin Triglycerides Cholesterol LDL Cholesterol Direct HDL Cholesterol Urine pH Urine WBC (Auto) Urine Creatinine Urine Total Protein Fluid Total Protein Vancomycin Trough Rheumatoid Factor Complement C4 Miscellaneous Test Crossmatch 10/18/16 10/18/16 10/18/16 05:23 10:46 17:30 WBC RBC Hgb Hct MCV MCH MCHC RDW Plt Count Lymph % (Auto) [place] % (Auto) Lymph # [place] # Baso # Seg Neutrophils % Seg Neuts % (Manual) Lymphocytes % (Manual) Monocytes % (Manual) Eosinophils % (Manual) Basophils % (Manual) Nucleated RBC % Seg Neutrophils # Seg Neutrophils # Man Lymphocytes # (Manual) Monocytes # (Manual) Eosinophils # (Manual) Basophils # (Manual) PT INR Fibrinogen dRVVT Confirm Interp Factor V Activity POC ABG pH POC ABG pCO2 POC ABG pO2 ABG pO2 ABG HCO3 ABG Base Excess ABG Hemoglobin Oxyhemoglobin Sodium Potassium Chloride Carbon Dioxide BUN Creatinine Glucose POC Glucose 119 H 155 H 124 H Lactic Acid Calcium Phosphorus Magnesium Direct Bilirubin AST ALT Alkaline Phosphatase Lactate Dehydrogenase Troponin T C-Reactive Protein Total Protein Albumin Prealbumin Triglycerides Cholesterol LDL Cholesterol Direct HDL Cholesterol Urine pH Urine WBC (Auto) Urine Creatinine Urine Total Protein Fluid Total Protein Vancomycin Trough Rheumatoid Factor Complement C4 Miscellaneous Test Crossmatch 10/19/16 10/19/16 10/19/16 04:00 04:00 05:25 WBC 17.4 H RBC 2.54 L Hgb 7.7 L Hct 23.6 L MCV MCH MCHC RDW 17.3 H Plt Count Lymph % (Auto) [place] % (Auto) Lymph # [place] # Baso # Seg Neutrophils % Seg Neuts % (Manual) Lymphocytes % (Manual) Monocytes % (Manual) Eosinophils % (Manual) Basophils % (Manual) Nucleated RBC % Seg Neutrophils # Seg Neutrophils # Man Lymphocytes # (Manual) Monocytes # (Manual) Eosinophils # (Manual) Basophils # (Manual) PT INR Fibrinogen dRVVT Confirm Interp Factor V Activity POC ABG pH POC ABG pCO2 POC ABG pO2 ABG pO2 ABG HCO3 ABG Base Excess ABG Hemoglobin Oxyhemoglobin Sodium Potassium Chloride Carbon Dioxide BUN 72 H Creatinine 2.1 H Glucose 116 H POC Glucose 119 H Lactic Acid Calcium Phosphorus Magnesium Direct Bilirubin AST ALT Alkaline Phosphatase Lactate Dehydrogenase Troponin T C-Reactive Protein Total Protein Albumin Prealbumin Triglycerides Cholesterol LDL Cholesterol Direct HDL Cholesterol Urine pH Urine WBC (Auto) Urine Creatinine Urine Total Protein Fluid Total Protein Vancomycin Trough Rheumatoid Factor Complement C4 Miscellaneous Test Crossmatch 10/19/16 10/19/16 10/20/16 11:46 23:59 06:00 WBC RBC Hgb Hct MCV MCH MCHC RDW Plt Count Lymph % (Auto) [place] % (Auto) Lymph # [place] # Baso # Seg Neutrophils % Seg Neuts % (Manual) Lymphocytes % (Manual) Monocytes % (Manual) Eosinophils % (Manual) Basophils % (Manual) Nucleated RBC % Seg Neutrophils # Seg Neutrophils # Man Lymphocytes # (Manual) Monocytes # (Manual) Eosinophils # (Manual) Basophils # (Manual) PT INR Fibrinogen dRVVT Confirm Interp Factor V Activity POC ABG pH POC ABG pCO2 POC ABG pO2 ABG pO2 ABG HCO3 ABG Base Excess ABG Hemoglobin Oxyhemoglobin Sodium Potassium Chloride Carbon Dioxide 17 L BUN 94 H Creatinine 2.7 H Glucose POC Glucose 116 H 117 H Lactic Acid Calcium Phosphorus Magnesium Direct Bilirubin AST ALT Alkaline Phosphatase Lactate Dehydrogenase Troponin T C-Reactive Protein Total Protein Albumin Prealbumin Triglycerides Cholesterol LDL Cholesterol Direct HDL Cholesterol Urine pH Urine WBC (Auto) Urine Creatinine Urine Total Protein Fluid Total Protein Vancomycin Trough Rheumatoid Factor Complement C4 Miscellaneous Test Crossmatch 10/20/16 10/20/16 10/20/16 06:00 11:49 16:00 WBC 19.7 H RBC 2.51 L Hgb 7.7 L Hct 23.5 L MCV MCH MCHC RDW 17.5 H Plt Count Lymph % (Auto) [place] % (Auto) Lymph # [place] # Baso # Seg Neutrophils % Seg Neuts % (Manual) Lymphocytes % (Manual) Monocytes % (Manual) Eosinophils % (Manual) Basophils % (Manual) Nucleated RBC % Seg Neutrophils # Seg Neutrophils # Man Lymphocytes # (Manual) Monocytes # (Manual) Eosinophils # (Manual) Basophils # (Manual) PT INR Fibrinogen dRVVT Confirm Interp Factor V Activity POC ABG pH POC ABG pCO2 POC ABG pO2 ABG pO2 ABG HCO3 ABG Base Excess ABG Hemoglobin Oxyhemoglobin Sodium Potassium Chloride Carbon Dioxide BUN Creatinine Glucose POC Glucose 117 H Lactic Acid Calcium Phosphorus Magnesium Direct Bilirubin AST ALT Alkaline Phosphatase Lactate Dehydrogenase Troponin T C-Reactive Protein Total Protein Albumin Prealbumin Triglycerides Cholesterol LDL Cholesterol Direct HDL Cholesterol Urine pH Urine WBC (Auto) Urine Creatinine Urine Total Protein Fluid Total Protein Vancomycin Trough Rheumatoid Factor Complement C4 Miscellaneous Test Flexitest 1 H Crossmatch 10/20/16 10/20/16 10/21/16 18:36 23:39 04:00 WBC RBC Hgb Hct MCV MCH MCHC RDW Plt Count Lymph % (Auto) [place] % (Auto) Lymph # [place] # Baso # Seg Neutrophils % Seg Neuts % (Manual) Lymphocytes % (Manual) Monocytes % (Manual) Eosinophils % (Manual) Basophils % (Manual) Nucleated RBC % Seg Neutrophils # Seg Neutrophils # Man Lymphocytes # (Manual) Monocytes # (Manual) Eosinophils # (Manual) Basophils # (Manual) PT INR Fibrinogen dRVVT Confirm Interp Factor V Activity POC ABG pH POC ABG pCO2 POC ABG pO2 ABG pO2 ABG HCO3 ABG Base Excess ABG Hemoglobin Oxyhemoglobin Sodium Potassium 5.4 H D Chloride Carbon Dioxide 15 L BUN 110 H Creatinine 3.0 H Glucose POC Glucose 127 H 114 H Lactic Acid Calcium Phosphorus Magnesium Direct Bilirubin AST ALT Alkaline Phosphatase Lactate Dehydrogenase Troponin T C-Reactive Protein Total Protein Albumin Prealbumin Triglycerides Cholesterol LDL Cholesterol Direct HDL Cholesterol Urine pH Urine WBC (Auto) Urine Creatinine Urine Total Protein Fluid Total Protein Vancomycin Trough Rheumatoid Factor Complement C4 Miscellaneous Test Crossmatch 10/21/16 10/21/16 10/22/16 05:54 23:46 05:18 WBC RBC Hgb Hct MCV MCH MCHC RDW Plt Count Lymph % (Auto) [place] % (Auto) Lymph # [place] # Baso # Seg Neutrophils % Seg Neuts % (Manual) Lymphocytes % (Manual) Monocytes % (Manual) Eosinophils % (Manual) Basophils % (Manual) Nucleated RBC % Seg Neutrophils # Seg Neutrophils # Man Lymphocytes # (Manual) Monocytes # (Manual) Eosinophils # (Manual) Basophils # (Manual) PT INR Fibrinogen dRVVT Confirm Interp Factor V Activity POC ABG pH POC ABG pCO2 POC ABG pO2 ABG pO2 ABG HCO3 ABG Base Excess ABG Hemoglobin Oxyhemoglobin Sodium Potassium Chloride Carbon Dioxide BUN Creatinine Glucose POC Glucose 119 H 108 H 109 H Lactic Acid Calcium Phosphorus Magnesium Direct Bilirubin AST ALT Alkaline Phosphatase Lactate Dehydrogenase Troponin T C-Reactive Protein Total Protein Albumin Prealbumin Triglycerides Cholesterol LDL Cholesterol Direct HDL Cholesterol Urine pH Urine WBC (Auto) Urine Creatinine Urine Total Protein Fluid Total Protein Vancomycin Trough Rheumatoid Factor Complement C4 Miscellaneous Test Crossmatch 10/22/16 10/22/16 10/22/16 06:40 06:40 06:40 WBC 14.0 H RBC 2.03 L Hgb 7.0 L Hct 20.5 L MCV 98 H MCH 34 H MCHC 35 H RDW 17.8 H Plt Count Lymph % (Auto) [place] % (Auto) 9.9 H Lymph # [place] # 1.4 H Baso # 0.2 H Seg Neutrophils % 72.0 H Seg Neuts % (Manual) Lymphocytes % (Manual) Monocytes % (Manual) Eosinophils % (Manual) Basophils % (Manual) Nucleated RBC % Seg Neutrophils # 10.0 H Seg Neutrophils # Man Lymphocytes # (Manual) Monocytes # (Manual) Eosinophils # (Manual) Basophils # (Manual) PT INR Fibrinogen dRVVT Confirm Interp Factor V Activity POC ABG pH POC ABG pCO2 POC ABG pO2 ABG pO2 ABG HCO3 ABG Base Excess ABG Hemoglobin Oxyhemoglobin Sodium 130 L D Potassium Chloride 92.4 L Carbon Dioxide 20 L BUN 50 H Creatinine 1.6 H Glucose 589 H* POC Glucose Lactic Acid Calcium 7.8 L D Phosphorus Magnesium 1.60 L Direct Bilirubin AST ALT Alkaline Phosphatase Lactate Dehydrogenase Troponin T C-Reactive Protein Total Protein Albumin Prealbumin Triglycerides Cholesterol LDL Cholesterol Direct HDL Cholesterol Urine pH Urine WBC (Auto) Urine Creatinine Urine Total Protein Fluid Total Protein Vancomycin Trough Rheumatoid Factor Complement C4 Miscellaneous Test Crossmatch 10/22/16 10/22/16 10/22/16 11:39 16:44 23:36 WBC RBC Hgb Hct MCV MCH MCHC RDW Plt Count Lymph % (Auto) [place] % (Auto) Lymph # [place] # Baso # Seg Neutrophils % Seg Neuts % (Manual) Lymphocytes % (Manual) Monocytes % (Manual) Eosinophils % (Manual) Basophils % (Manual) Nucleated RBC % Seg Neutrophils # Seg Neutrophils # Man Lymphocytes # (Manual) Monocytes # (Manual) Eosinophils # (Manual) Basophils # (Manual) PT INR Fibrinogen dRVVT Confirm Interp Factor V Activity POC ABG pH POC ABG pCO2 POC ABG pO2 ABG pO2 ABG HCO3 ABG Base Excess ABG Hemoglobin Oxyhemoglobin Sodium Potassium Chloride Carbon Dioxide BUN Creatinine Glucose POC Glucose 142 H 163 H 123 H Lactic Acid Calcium Phosphorus Magnesium Direct Bilirubin AST ALT Alkaline Phosphatase Lactate Dehydrogenase Troponin T C-Reactive Protein Total Protein Albumin Prealbumin Triglycerides Cholesterol LDL Cholesterol Direct HDL Cholesterol Urine pH Urine WBC (Auto) Urine Creatinine Urine Total Protein Fluid Total Protein Vancomycin Trough Rheumatoid Factor Complement C4 Miscellaneous Test Crossmatch 10/23/16 10/23/16 10/23/16 04:58 06:00 12:12 WBC RBC Hgb Hct MCV MCH MCHC RDW Plt Count Lymph % (Auto) [place] % (Auto) Lymph # [place] # Baso # Seg Neutrophils % Seg Neuts % (Manual) Lymphocytes % (Manual) Monocytes % (Manual) Eosinophils % (Manual) Basophils % (Manual) Nucleated RBC % Seg Neutrophils # Seg Neutrophils # Man Lymphocytes # (Manual) Monocytes # (Manual) Eosinophils # (Manual) Basophils # (Manual) PT INR Fibrinogen dRVVT Confirm Interp Factor V Activity POC ABG pH POC ABG pCO2 POC ABG pO2 ABG pO2 ABG HCO3 ABG Base Excess ABG Hemoglobin Oxyhemoglobin Sodium 133 L Potassium 3.5 L Chloride 96.1 L Carbon Dioxide 18 L BUN 76 H Creatinine 2.1 H Glucose POC Glucose 133 H 138 H Lactic Acid Calcium 8.3 L Phosphorus Magnesium Direct Bilirubin AST ALT Alkaline Phosphatase Lactate Dehydrogenase Troponin T C-Reactive Protein Total Protein Albumin Prealbumin Triglycerides Cholesterol LDL Cholesterol Direct HDL Cholesterol Urine pH Urine WBC (Auto) Urine Creatinine Urine Total Protein Fluid Total Protein Vancomycin Trough Rheumatoid Factor Complement C4 Miscellaneous Test Crossmatch 10/23/16 10/23/16 10/24/16 16:53 23:37 04:00 WBC RBC Hgb Hct MCV MCH MCHC RDW Plt Count Lymph % (Auto) [place] % (Auto) Lymph # [place] # Baso # Seg Neutrophils % Seg Neuts % (Manual) Lymphocytes % (Manual) Monocytes % (Manual) Eosinophils % (Manual) Basophils % (Manual) Nucleated RBC % Seg Neutrophils # Seg Neutrophils # Man Lymphocytes # (Manual) Monocytes # (Manual) Eosinophils # (Manual) Basophils # (Manual) PT INR Fibrinogen dRVVT Confirm Interp Factor V Activity POC ABG pH POC ABG pCO2 POC ABG pO2 ABG pO2 ABG HCO3 ABG Base Excess ABG Hemoglobin Oxyhemoglobin Sodium 131 L Potassium Chloride 94.5 L Carbon Dioxide 19 L BUN 97 H Creatinine 2.6 H Glucose 110 H POC Glucose 125 H 123 H Lactic Acid Calcium 8.3 L Phosphorus Magnesium Direct Bilirubin AST ALT Alkaline Phosphatase Lactate Dehydrogenase Troponin T C-Reactive Protein Total Protein Albumin Prealbumin Triglycerides Cholesterol LDL Cholesterol Direct HDL Cholesterol Urine pH Urine WBC (Auto) Urine Creatinine Urine Total Protein Fluid Total Protein Vancomycin Trough Rheumatoid Factor Complement C4 Miscellaneous Test Crossmatch 10/24/16 10/24/16 10/24/16 07:49 11:39 17:52 WBC RBC Hgb 6.0 L Hct 19.7 L* MCV MCH MCHC RDW Plt Count Lymph % (Auto) [place] % (Auto) Lymph # [place] # Baso # Seg Neutrophils % Seg Neuts % (Manual) Lymphocytes % (Manual) Monocytes % (Manual) Eosinophils % (Manual) Basophils % (Manual) Nucleated RBC % Seg Neutrophils # Seg Neutrophils # Man Lymphocytes # (Manual) Monocytes # (Manual) Eosinophils # (Manual) Basophils # (Manual) PT INR Fibrinogen dRVVT Confirm Interp Factor V Activity POC ABG pH POC ABG pCO2 POC ABG pO2 ABG pO2 ABG HCO3 ABG Base Excess ABG Hemoglobin Oxyhemoglobin Sodium Potassium Chloride Carbon Dioxide BUN Creatinine Glucose POC Glucose 106 H 158 H Lactic Acid Calcium Phosphorus Magnesium Direct Bilirubin AST ALT Alkaline Phosphatase Lactate Dehydrogenase Troponin T C-Reactive Protein Total Protein Albumin Prealbumin Triglycerides Cholesterol LDL Cholesterol Direct HDL Cholesterol Urine pH Urine WBC (Auto) Urine Creatinine Urine Total Protein Fluid Total Protein Vancomycin Trough Rheumatoid Factor Complement C4 Miscellaneous Test Crossmatch 10/24/16 10/24/16 10/24/16 20:00 22:27 Unknown WBC RBC Hgb 9.4 L D Hct 27.5 L D MCV MCH MCHC RDW Plt Count Lymph % (Auto) [place] % (Auto) Lymph # [place] # Baso # Seg Neutrophils % Seg Neuts % (Manual) Lymphocytes % (Manual) Monocytes % (Manual) Eosinophils % (Manual) Basophils % (Manual) Nucleated RBC % Seg Neutrophils # Seg Neutrophils # Man Lymphocytes # (Manual) Monocytes # (Manual) Eosinophils # (Manual) Basophils # (Manual) PT INR Fibrinogen dRVVT Confirm Interp Factor V Activity POC ABG pH POC ABG pCO2 POC ABG pO2 ABG pO2 ABG HCO3 ABG Base Excess ABG Hemoglobin Oxyhemoglobin Sodium Potassium Chloride Carbon Dioxide BUN Creatinine Glucose POC Glucose 125 H Lactic Acid Calcium Phosphorus Magnesium Direct Bilirubin AST ALT Alkaline Phosphatase Lactate Dehydrogenase Troponin T C-Reactive Protein Total Protein Albumin Prealbumin Triglycerides Cholesterol LDL Cholesterol Direct HDL Cholesterol Urine pH Urine WBC (Auto) Urine Creatinine Urine Total Protein Fluid Total Protein Vancomycin Trough Rheumatoid Factor Complement C4 Miscellaneous Test Crossmatch See Detail 10/25/16 10/25/16 10/25/16 04:00 04:00 04:00 WBC 14.2 H RBC 2.98 L Hgb 9.0 L Hct 26.2 L MCV MCH MCHC RDW 16.6 H Plt Count Lymph % (Auto) [place] % (Auto) 10.7 H Lymph # [place] # 1.5 H Baso # Seg Neutrophils % 73.6 H Seg Neuts % (Manual) Lymphocytes % (Manual) Monocytes % (Manual) Eosinophils % (Manual) Basophils % (Manual) Nucleated RBC % Seg Neutrophils # 10.5 H Seg Neutrophils # Man Lymphocytes # (Manual) Monocytes # (Manual) Eosinophils # (Manual) Basophils # (Manual) PT INR Fibrinogen dRVVT Confirm Interp Factor V Activity POC ABG pH POC ABG pCO2 POC ABG pO2 ABG pO2 ABG HCO3 ABG Base Excess ABG Hemoglobin Oxyhemoglobin Sodium 132 L Potassium Chloride 94.7 L Carbon Dioxide BUN 51 H Creatinine 1.6 H Glucose 130 H POC Glucose Lactic Acid Calcium 8.3 L Phosphorus 1.60 L D Magnesium Direct Bilirubin AST ALT Alkaline Phosphatase Lactate Dehydrogenase Troponin T C-Reactive Protein Total Protein Albumin Prealbumin Triglycerides Cholesterol LDL Cholesterol Direct HDL Cholesterol Urine pH Urine WBC (Auto) Urine Creatinine Urine Total Protein Fluid Total Protein Vancomycin Trough Rheumatoid Factor Complement C4 Miscellaneous Test Crossmatch 10/25/16 10/25/16 10/25/16 04:32 11:48 17:22 WBC RBC Hgb Hct MCV MCH MCHC RDW Plt Count Lymph % (Auto) [place] % (Auto) Lymph # [place] # Baso # Seg Neutrophils % Seg Neuts % (Manual) Lymphocytes % (Manual) Monocytes % (Manual) Eosinophils % (Manual) Basophils % (Manual) Nucleated RBC % Seg Neutrophils # Seg Neutrophils # Man Lymphocytes # (Manual) Monocytes # (Manual) Eosinophils # (Manual) Basophils # (Manual) PT INR Fibrinogen dRVVT Confirm Interp Factor V Activity POC ABG pH POC ABG pCO2 POC ABG pO2 ABG pO2 ABG HCO3 ABG Base Excess ABG Hemoglobin Oxyhemoglobin Sodium Potassium Chloride Carbon Dioxide BUN Creatinine Glucose POC Glucose 124 H 171 H 120 H Lactic Acid Calcium Phosphorus Magnesium Direct Bilirubin AST ALT Alkaline Phosphatase Lactate Dehydrogenase Troponin T C-Reactive Protein Total Protein Albumin Prealbumin Triglycerides Cholesterol LDL Cholesterol Direct HDL Cholesterol Urine pH Urine WBC (Auto) Urine Creatinine Urine Total Protein Fluid Total Protein Vancomycin Trough Rheumatoid Factor Complement C4 Miscellaneous Test Crossmatch 10/26/16 10/26/16 10/26/16 04:54 07:06 07:06 WBC 16.9 H RBC 3.06 L Hgb 9.1 L Hct 26.9 L MCV MCH MCHC RDW 16.9 H Plt Count Lymph % (Auto) [place] % (Auto) Lymph # [place] # Baso # Seg Neutrophils % Seg Neuts % (Manual) 71.0 H Lymphocytes % (Manual) 5.0 L Monocytes % (Manual) 12.0 H Eosinophils % (Manual) Basophils % (Manual) Nucleated RBC % Seg Neutrophils # Seg Neutrophils # Man 12.0 H Lymphocytes # (Manual) 0.8 L Monocytes # (Manual) 2.0 H Eosinophils # (Manual) Basophils # (Manual) PT INR Fibrinogen dRVVT Confirm Interp Factor V Activity POC ABG pH POC ABG pCO2 POC ABG pO2 ABG pO2 ABG HCO3 ABG Base Excess ABG Hemoglobin Oxyhemoglobin Sodium 135 L Potassium Chloride 97.1 L Carbon Dioxide BUN 73 H Creatinine 2.2 H Glucose 117 H POC Glucose 123 H Lactic Acid Calcium Phosphorus 1.70 L Magnesium Direct Bilirubin AST ALT Alkaline Phosphatase Lactate Dehydrogenase Troponin T C-Reactive Protein Total Protein Albumin Prealbumin Triglycerides Cholesterol LDL Cholesterol Direct HDL Cholesterol Urine pH Urine WBC (Auto) Urine Creatinine Urine Total Protein Fluid Total Protein Vancomycin Trough Rheumatoid Factor Complement C4 Miscellaneous Test Crossmatch 10/26/16 10/26/16 10/26/16 12:12 17:29 23:42 WBC RBC Hgb Hct MCV MCH MCHC RDW Plt Count Lymph % (Auto) [place] % (Auto) Lymph # [place] # Baso # Seg Neutrophils % Seg Neuts % (Manual) Lymphocytes % (Manual) Monocytes % (Manual) Eosinophils % (Manual) Basophils % (Manual) Nucleated RBC % Seg Neutrophils # Seg Neutrophils # Man Lymphocytes # (Manual) Monocytes # (Manual) Eosinophils # (Manual) Basophils # (Manual) PT INR Fibrinogen dRVVT Confirm Interp Factor V Activity POC ABG pH POC ABG pCO2 POC ABG pO2 ABG pO2 ABG HCO3 ABG Base Excess ABG Hemoglobin Oxyhemoglobin Sodium Potassium Chloride Carbon Dioxide BUN Creatinine Glucose POC Glucose 126 H 161 H 118 H Lactic Acid Calcium Phosphorus Magnesium Direct Bilirubin AST ALT Alkaline Phosphatase Lactate Dehydrogenase Troponin T C-Reactive Protein Total Protein Albumin Prealbumin Triglycerides Cholesterol LDL Cholesterol Direct HDL Cholesterol Urine pH Urine WBC (Auto) Urine Creatinine Urine Total Protein Fluid Total Protein Vancomycin Trough Rheumatoid Factor Complement C4 Miscellaneous Test Crossmatch 10/27/16 10/27/16 10/27/16 05:03 06:30 06:30 WBC 13.9 H RBC 3.09 L Hgb 9.2 L Hct 27.5 L MCV MCH MCHC RDW 17.0 H Plt Count Lymph % (Auto) [place] % (Auto) Lymph # [place] # Baso # Seg Neutrophils % Seg Neuts % (Manual) 78.0 H Lymphocytes % (Manual) Monocytes % (Manual) Eosinophils % (Manual) Basophils % (Manual) Nucleated RBC % 2.0 H Seg Neutrophils # Seg Neutrophils # Man 10.8 H Lymphocytes # (Manual) Monocytes # (Manual) 1.0 H Eosinophils # (Manual) Basophils # (Manual) PT INR Fibrinogen dRVVT Confirm Interp Factor V Activity POC ABG pH POC ABG pCO2 POC ABG pO2 ABG pO2 ABG HCO3 ABG Base Excess ABG Hemoglobin Oxyhemoglobin Sodium Potassium Chloride Carbon Dioxide BUN 40 H Creatinine 1.5 H Glucose 135 H POC Glucose 107 H Lactic Acid Calcium 8.3 L Phosphorus 1.30 L D Magnesium Direct Bilirubin AST ALT Alkaline Phosphatase Lactate Dehydrogenase Troponin T C-Reactive Protein Total Protein Albumin Prealbumin Triglycerides Cholesterol LDL Cholesterol Direct HDL Cholesterol Urine pH Urine WBC (Auto) Urine Creatinine Urine Total Protein Fluid Total Protein Vancomycin Trough Rheumatoid Factor Complement C4 Miscellaneous Test Crossmatch 10/27/16 10/27/16 10/27/16 13:27 18:07 23:40 WBC RBC Hgb Hct MCV MCH MCHC RDW Plt Count Lymph % (Auto) [place] % (Auto) Lymph # [place] # Baso # Seg Neutrophils % Seg Neuts % (Manual) Lymphocytes % (Manual) Monocytes % (Manual) Eosinophils % (Manual) Basophils % (Manual) Nucleated RBC % Seg Neutrophils # Seg Neutrophils # Man Lymphocytes # (Manual) Monocytes # (Manual) Eosinophils # (Manual) Basophils # (Manual) PT INR Fibrinogen dRVVT Confirm Interp Factor V Activity POC ABG pH POC ABG pCO2 POC ABG pO2 ABG pO2 ABG HCO3 ABG Base Excess ABG Hemoglobin Oxyhemoglobin Sodium Potassium Chloride Carbon Dioxide BUN Creatinine Glucose POC Glucose 117 H 121 H 118 H Lactic Acid Calcium Phosphorus Magnesium Direct Bilirubin AST ALT Alkaline Phosphatase Lactate Dehydrogenase Troponin T C-Reactive Protein Total Protein Albumin Prealbumin Triglycerides Cholesterol LDL Cholesterol Direct HDL Cholesterol Urine pH Urine WBC (Auto) Urine Creatinine Urine Total Protein Fluid Total Protein Vancomycin Trough Rheumatoid Factor Complement C4 Miscellaneous Test Crossmatch 10/28/16 10/28/16 10/28/16 05:48 06:45 06:45 WBC 14.7 H RBC 3.05 L Hgb 9.0 L Hct 26.9 L MCV MCH MCHC RDW 16.8 H Plt Count Lymph % (Auto) 8.2 L [place] % (Auto) 8.4 H Lymph # [place] # 1.2 H Baso # Seg Neutrophils % 81.9 H Seg Neuts % (Manual) Lymphocytes % (Manual) Monocytes % (Manual) Eosinophils % (Manual) Basophils % (Manual) Nucleated RBC % Seg Neutrophils # 12.1 H Seg Neutrophils # Man Lymphocytes # (Manual) Monocytes # (Manual) Eosinophils # (Manual) Basophils # (Manual) PT INR Fibrinogen dRVVT Confirm Interp Factor V Activity POC ABG pH POC ABG pCO2 POC ABG pO2 ABG pO2 ABG HCO3 ABG Base Excess ABG Hemoglobin Oxyhemoglobin Sodium Potassium Chloride Carbon Dioxide BUN 60 H Creatinine 1.9 H Glucose 120 H POC Glucose 114 H Lactic Acid Calcium Phosphorus Magnesium Direct Bilirubin AST ALT Alkaline Phosphatase Lactate Dehydrogenase Troponin T C-Reactive Protein Total Protein Albumin Prealbumin Triglycerides Cholesterol LDL Cholesterol Direct HDL Cholesterol Urine pH Urine WBC (Auto) Urine Creatinine Urine Total Protein Fluid Total Protein Vancomycin Trough Rheumatoid Factor Complement C4 Miscellaneous Test Crossmatch 10/28/16 10/28/16 10/29/16 17:08 23:50 05:10 WBC RBC Hgb Hct MCV MCH MCHC RDW Plt Count Lymph % (Auto) [place] % (Auto) Lymph # [place] # Baso # Seg Neutrophils % Seg Neuts % (Manual) Lymphocytes % (Manual) Monocytes % (Manual) Eosinophils % (Manual) Basophils % (Manual) Nucleated RBC % Seg Neutrophils # Seg Neutrophils # Man Lymphocytes # (Manual) Monocytes # (Manual) Eosinophils # (Manual) Basophils # (Manual) PT INR Fibrinogen dRVVT Confirm Interp Factor V Activity POC ABG pH POC ABG pCO2 POC ABG pO2 ABG pO2 ABG HCO3 ABG Base Excess ABG Hemoglobin Oxyhemoglobin Sodium Potassium Chloride Carbon Dioxide BUN Creatinine Glucose POC Glucose 109 H 110 H 124 H Lactic Acid Calcium Phosphorus Magnesium Direct Bilirubin AST ALT Alkaline Phosphatase Lactate Dehydrogenase Troponin T C-Reactive Protein Total Protein Albumin Prealbumin Triglycerides Cholesterol LDL Cholesterol Direct HDL Cholesterol Urine pH Urine WBC (Auto) Urine Creatinine Urine Total Protein Fluid Total Protein Vancomycin Trough Rheumatoid Factor Complement C4 Miscellaneous Test Crossmatch 10/29/16 10/29/16 10/29/16 07:45 07:45 12:19 WBC 14.7 H RBC 3.15 L Hgb 9.3 L Hct 28.9 L MCV MCH MCHC RDW 17.0 H Plt Count Lymph % (Auto) 11.9 L [place] % (Auto) 8.6 H Lymph # [place] # 1.3 H Baso # Seg Neutrophils % 78.1 H Seg Neuts % (Manual) Lymphocytes % (Manual) Monocytes % (Manual) Eosinophils % (Manual) Basophils % (Manual) Nucleated RBC % Seg Neutrophils # 11.4 H Seg Neutrophils # Man Lymphocytes # (Manual) Monocytes # (Manual) Eosinophils # (Manual) Basophils # (Manual) PT INR Fibrinogen dRVVT Confirm Interp Factor V Activity POC ABG pH POC ABG pCO2 POC ABG pO2 ABG pO2 ABG HCO3 ABG Base Excess ABG Hemoglobin Oxyhemoglobin Sodium Potassium 5.1 H Chloride Carbon Dioxide 19 L BUN 78 H Creatinine 2.2 H Glucose 116 H POC Glucose 118 H Lactic Acid Calcium Phosphorus Magnesium Direct Bilirubin AST ALT Alkaline Phosphatase Lactate Dehydrogenase Troponin T C-Reactive Protein Total Protein Albumin Prealbumin Triglycerides Cholesterol LDL Cholesterol Direct HDL Cholesterol Urine pH Urine WBC (Auto) Urine Creatinine Urine Total Protein Fluid Total Protein Vancomycin Trough Rheumatoid Factor Complement C4 Miscellaneous Test Crossmatch 10/29/16 10/30/16 10/30/16 17:49 01:52 03:28 WBC RBC Hgb Hct MCV MCH MCHC RDW Plt Count Lymph % (Auto) [place] % (Auto) Lymph # [place] # Baso # Seg Neutrophils % Seg Neuts % (Manual) Lymphocytes % (Manual) Monocytes % (Manual) Eosinophils % (Manual) Basophils % (Manual) Nucleated RBC % Seg Neutrophils # Seg Neutrophils # Man Lymphocytes # (Manual) Monocytes # (Manual) Eosinophils # (Manual) Basophils # (Manual) PT INR Fibrinogen dRVVT Confirm Interp Factor V Activity POC ABG pH POC ABG pCO2 POC ABG pO2 ABG pO2 ABG HCO3 ABG Base Excess ABG Hemoglobin Oxyhemoglobin Sodium Potassium 5.4 H Chloride 97.5 L Carbon Dioxide 19 L BUN 90 H Creatinine 2.5 H Glucose POC Glucose 120 H 129 H Lactic Acid Calcium Phosphorus 5.20 H Magnesium Direct Bilirubin AST ALT Alkaline Phosphatase Lactate Dehydrogenase Troponin T C-Reactive Protein Total Protein Albumin Prealbumin Triglycerides Cholesterol LDL Cholesterol Direct HDL Cholesterol Urine pH Urine WBC (Auto) Urine Creatinine Urine Total Protein Fluid Total Protein Vancomycin Trough Rheumatoid Factor Complement C4 Miscellaneous Test Crossmatch 10/30/16 10/30/16 10/30/16 03:28 08:19 08:19 WBC 11.6 H 15.9 H RBC 2.75 L 2.82 L Hgb 7.9 L 8.3 L Hct 24.2 L 25.2 L MCV MCH MCHC RDW 16.7 H 17.2 H Plt Count Lymph % (Auto) [place] % (Auto) 9.8 H Lymph # [place] # 1.1 H Baso # Seg Neutrophils % 74.2 H Seg Neuts % (Manual) Lymphocytes % (Manual) Monocytes % (Manual) Eosinophils % (Manual) Basophils % (Manual) Nucleated RBC % Seg Neutrophils # 8.6 H Seg Neutrophils # Man Lymphocytes # (Manual) Monocytes # (Manual) Eosinophils # (Manual) Basophils # (Manual) PT INR Fibrinogen dRVVT Confirm Interp Factor V Activity POC ABG pH POC ABG pCO2 POC ABG pO2 ABG pO2 ABG HCO3 ABG Base Excess ABG Hemoglobin Oxyhemoglobin Sodium Potassium 5.3 H Chloride 97.4 L Carbon Dioxide 19 L BUN 93 H Creatinine 2.6 H Glucose POC Glucose Lactic Acid Calcium Phosphorus Magnesium Direct Bilirubin AST ALT Alkaline Phosphatase Lactate Dehydrogenase Troponin T C-Reactive Protein Total Protein Albumin Prealbumin Triglycerides Cholesterol LDL Cholesterol Direct HDL Cholesterol Urine pH Urine WBC (Auto) Urine Creatinine Urine Total Protein Fluid Total Protein Vancomycin Trough Rheumatoid Factor Complement C4 Miscellaneous Test Crossmatch 10/30/16 10/30/16 10/31/16 17:11 23:56 00:40 WBC RBC Hgb Hct MCV MCH MCHC RDW Plt Count Lymph % (Auto) [place] % (Auto) Lymph # [place] # Baso # Seg Neutrophils % Seg Neuts % (Manual) Lymphocytes % (Manual) Monocytes % (Manual) Eosinophils % (Manual) Basophils % (Manual) Nucleated RBC % Seg Neutrophils # Seg Neutrophils # Man Lymphocytes # (Manual) Monocytes # (Manual) Eosinophils # (Manual) Basophils # (Manual) PT INR Fibrinogen dRVVT Confirm Interp Factor V Activity POC ABG pH POC ABG pCO2 POC ABG pO2 ABG pO2 ABG HCO3 ABG Base Excess ABG Hemoglobin Oxyhemoglobin Sodium Potassium Chloride Carbon Dioxide BUN Creatinine Glucose POC Glucose 106 H 117 H 120 H Lactic Acid Calcium Phosphorus Magnesium Direct Bilirubin AST ALT Alkaline Phosphatase Lactate Dehydrogenase Troponin T C-Reactive Protein Total Protein Albumin Prealbumin Triglycerides Cholesterol LDL Cholesterol Direct HDL Cholesterol Urine pH Urine WBC (Auto) Urine Creatinine Urine Total Protein Fluid Total Protein Vancomycin Trough Rheumatoid Factor Complement C4 Miscellaneous Test Crossmatch 10/31/16 10/31/16 10/31/16 05:43 07:15 07:15 WBC 12.1 H RBC 2.63 L Hgb 7.7 L Hct 23.3 L MCV MCH MCHC RDW 16.7 H Plt Count Lymph % (Auto) 11.7 L [place] % (Auto) 7.7 H Lymph # [place] # 0.9 H Baso # Seg Neutrophils % 78.0 H Seg Neuts % (Manual) Lymphocytes % (Manual) Monocytes % (Manual) Eosinophils % (Manual) Basophils % (Manual) Nucleated RBC % Seg Neutrophils # 9.4 H Seg Neutrophils # Man Lymphocytes # (Manual) Monocytes # (Manual) Eosinophils # (Manual) Basophils # (Manual) PT INR Fibrinogen dRVVT Confirm Interp Factor V Activity POC ABG pH POC ABG pCO2 POC ABG pO2 ABG pO2 ABG HCO3 ABG Base Excess ABG Hemoglobin Oxyhemoglobin Sodium Potassium Chloride 96.4 L Carbon Dioxide 21 L BUN 99 H Creatinine 2.6 H Glucose 144 H POC Glucose 125 H Lactic Acid Calcium Phosphorus 4.80 H Magnesium Direct Bilirubin AST ALT Alkaline Phosphatase Lactate Dehydrogenase Troponin T C-Reactive Protein Total Protein Albumin Prealbumin Triglycerides Cholesterol LDL Cholesterol Direct HDL Cholesterol Urine pH Urine WBC (Auto) Urine Creatinine Urine Total Protein Fluid Total Protein Vancomycin Trough Rheumatoid Factor Complement C4 Miscellaneous Test Crossmatch 10/31/16 10/31/16 11/01/16 11:46 18:34 00:20 WBC RBC Hgb Hct MCV MCH MCHC RDW Plt Count Lymph % (Auto) [place] % (Auto) Lymph # [place] # Baso # Seg Neutrophils % Seg Neuts % (Manual) Lymphocytes % (Manual) Monocytes % (Manual) Eosinophils % (Manual) Basophils % (Manual) Nucleated RBC % Seg Neutrophils # Seg Neutrophils # Man Lymphocytes # (Manual) Monocytes # (Manual) Eosinophils # (Manual) Basophils # (Manual) PT INR Fibrinogen dRVVT Confirm Interp Factor V Activity POC ABG pH POC ABG pCO2 POC ABG pO2 ABG pO2 ABG HCO3 ABG Base Excess ABG Hemoglobin Oxyhemoglobin Sodium Potassium Chloride Carbon Dioxide BUN Creatinine Glucose POC Glucose 159 H 140 H 132 H Lactic Acid Calcium Phosphorus Magnesium Direct Bilirubin AST ALT Alkaline Phosphatase Lactate Dehydrogenase Troponin T C-Reactive Protein Total Protein Albumin Prealbumin Triglycerides Cholesterol LDL Cholesterol Direct HDL Cholesterol Urine pH Urine WBC (Auto) Urine Creatinine Urine Total Protein Fluid Total Protein Vancomycin Trough Rheumatoid Factor Complement C4 Miscellaneous Test Crossmatch 11/01/16 11/01/16 11/01/16 04:55 04:55 06:11 WBC 11.2 H RBC 2.68 L Hgb 7.5 L Hct 23.7 L MCV MCH MCHC RDW 16.1 H Plt Count Lymph % (Auto) [place] % (Auto) 9.8 H Lymph # [place] # 1.1 H Baso # Seg Neutrophils % 70.8 H Seg Neuts % (Manual) Lymphocytes % (Manual) Monocytes % (Manual) Eosinophils % (Manual) Basophils % (Manual) Nucleated RBC % Seg Neutrophils # 7.9 H Seg Neutrophils # Man Lymphocytes # (Manual) Monocytes # (Manual) Eosinophils # (Manual) Basophils # (Manual) PT INR Fibrinogen dRVVT Confirm Interp Factor V Activity POC ABG pH POC ABG pCO2 POC ABG pO2 ABG pO2 ABG HCO3 ABG Base Excess ABG Hemoglobin Oxyhemoglobin Sodium Potassium 3.3 L D Chloride Carbon Dioxide BUN 61 H Creatinine 1.9 H Glucose 114 H POC Glucose 115 H Lactic Acid Calcium Phosphorus 1.80 L D Magnesium Direct Bilirubin AST ALT Alkaline Phosphatase Lactate Dehydrogenase Troponin T C-Reactive Protein Total Protein Albumin Prealbumin Triglycerides Cholesterol LDL Cholesterol Direct HDL Cholesterol Urine pH Urine WBC (Auto) Urine Creatinine Urine Total Protein Fluid Total Protein Vancomycin Trough Rheumatoid Factor Complement C4 Miscellaneous Test Crossmatch 11/01/16 11/01/16 11/01/16 12:29 18:23 23:58 WBC RBC Hgb Hct MCV MCH MCHC RDW Plt Count Lymph % (Auto) [place] % (Auto) Lymph # [place] # Baso # Seg Neutrophils % Seg Neuts % (Manual) Lymphocytes % (Manual) Monocytes % (Manual) Eosinophils % (Manual) Basophils % (Manual) Nucleated RBC % Seg Neutrophils # Seg Neutrophils # Man Lymphocytes # (Manual) Monocytes # (Manual) Eosinophils # (Manual) Basophils # (Manual) PT INR Fibrinogen dRVVT Confirm Interp Factor V Activity POC ABG pH POC ABG pCO2 POC ABG pO2 ABG pO2 ABG HCO3 ABG Base Excess ABG Hemoglobin Oxyhemoglobin Sodium Potassium Chloride Carbon Dioxide BUN Creatinine Glucose POC Glucose 142 H 143 H 128 H Lactic Acid Calcium Phosphorus Magnesium Direct Bilirubin AST ALT Alkaline Phosphatase Lactate Dehydrogenase Troponin T C-Reactive Protein Total Protein Albumin Prealbumin Triglycerides Cholesterol LDL Cholesterol Direct HDL Cholesterol Urine pH Urine WBC (Auto) Urine Creatinine Urine Total Protein Fluid Total Protein Vancomycin Trough Rheumatoid Factor Complement C4 Miscellaneous Test Crossmatch 11/02/16 11/02/16 11/02/16 04:16 05:29 11:58 WBC RBC Hgb Hct MCV MCH MCHC RDW Plt Count Lymph % (Auto) [place] % (Auto) Lymph # [place] # Baso # Seg Neutrophils % Seg Neuts % (Manual) Lymphocytes % (Manual) Monocytes % (Manual) Eosinophils % (Manual) Basophils % (Manual) Nucleated RBC % Seg Neutrophils # Seg Neutrophils # Man Lymphocytes # (Manual) Monocytes # (Manual) Eosinophils # (Manual) Basophils # (Manual) PT INR Fibrinogen dRVVT Confirm Interp Factor V Activity POC ABG pH POC ABG pCO2 POC ABG pO2 ABG pO2 ABG HCO3 ABG Base Excess ABG Hemoglobin Oxyhemoglobin Sodium Potassium 3.1 L Chloride Carbon Dioxide BUN 73 H Creatinine 2.3 H Glucose 112 H POC Glucose 135 H 149 H Lactic Acid Calcium Phosphorus Magnesium Direct Bilirubin AST ALT Alkaline Phosphatase Lactate Dehydrogenase Troponin T C-Reactive Protein Total Protein Albumin Prealbumin Triglycerides Cholesterol LDL Cholesterol Direct HDL Cholesterol Urine pH Urine WBC (Auto) Urine Creatinine Urine Total Protein Fluid Total Protein Vancomycin Trough Rheumatoid Factor Complement C4 Miscellaneous Test Crossmatch 11/02/16 11/02/16 11/03/16 17:42 22:54 06:00 WBC RBC Hgb Hct MCV MCH MCHC RDW Plt Count Lymph % (Auto) [place] % (Auto) Lymph # [place] # Baso # Seg Neutrophils % Seg Neuts % (Manual) Lymphocytes % (Manual) Monocytes % (Manual) Eosinophils % (Manual) Basophils % (Manual) Nucleated RBC % Seg Neutrophils # Seg Neutrophils # Man Lymphocytes # (Manual) Monocytes # (Manual) Eosinophils # (Manual) Basophils # (Manual) PT INR Fibrinogen dRVVT Confirm Interp Factor V Activity POC ABG pH POC ABG pCO2 POC ABG pO2 ABG pO2 ABG HCO3 ABG Base Excess ABG Hemoglobin Oxyhemoglobin Sodium Potassium Chloride 96.7 L Carbon Dioxide BUN 41 H Creatinine 1.5 H Glucose 145 H POC Glucose 182 H 115 H Lactic Acid Calcium Phosphorus 1.60 L D Magnesium 1.50 L Direct Bilirubin AST ALT Alkaline Phosphatase Lactate Dehydrogenase Troponin T C-Reactive Protein Total Protein Albumin Prealbumin Triglycerides Cholesterol LDL Cholesterol Direct HDL Cholesterol Urine pH Urine WBC (Auto) Urine Creatinine Urine Total Protein Fluid Total Protein Vancomycin Trough Rheumatoid Factor Complement C4 Miscellaneous Test Crossmatch 11/03/16 11/03/16 11/03/16 11:53 17:45 23:37 WBC RBC Hgb Hct MCV MCH MCHC RDW Plt Count Lymph % (Auto) [place] % (Auto) Lymph # [place] # Baso # Seg Neutrophils % Seg Neuts % (Manual) Lymphocytes % (Manual) Monocytes % (Manual) Eosinophils % (Manual) Basophils % (Manual) Nucleated RBC % Seg Neutrophils # Seg Neutrophils # Man Lymphocytes # (Manual) Monocytes # (Manual) Eosinophils # (Manual) Basophils # (Manual) PT INR Fibrinogen dRVVT Confirm Interp Factor V Activity POC ABG pH POC ABG pCO2 POC ABG pO2 ABG pO2 ABG HCO3 ABG Base Excess ABG Hemoglobin Oxyhemoglobin Sodium Potassium Chloride Carbon Dioxide BUN Creatinine Glucose POC Glucose 131 H 134 H 113 H Lactic Acid Calcium Phosphorus Magnesium Direct Bilirubin AST ALT Alkaline Phosphatase Lactate Dehydrogenase Troponin T C-Reactive Protein Total Protein Albumin Prealbumin Triglycerides Cholesterol LDL Cholesterol Direct HDL Cholesterol Urine pH Urine WBC (Auto) Urine Creatinine Urine Total Protein Fluid Total Protein Vancomycin Trough Rheumatoid Factor Complement C4 Miscellaneous Test Crossmatch 11/04/16 11/04/16 11/04/16 05:41 06:00 12:10 WBC RBC Hgb Hct MCV MCH MCHC RDW Plt Count Lymph % (Auto) [place] % (Auto) Lymph # [place] # Baso # Seg Neutrophils % Seg Neuts % (Manual) Lymphocytes % (Manual) Monocytes % (Manual) Eosinophils % (Manual) Basophils % (Manual) Nucleated RBC % Seg Neutrophils # Seg Neutrophils # Man Lymphocytes # (Manual) Monocytes # (Manual) Eosinophils # (Manual) Basophils # (Manual) PT INR Fibrinogen dRVVT Confirm Interp Factor V Activity POC ABG pH POC ABG pCO2 POC ABG pO2 ABG pO2 ABG HCO3 ABG Base Excess ABG Hemoglobin Oxyhemoglobin Sodium Potassium Chloride 96.7 L Carbon Dioxide BUN 52 H Creatinine 1.9 H Glucose 126 H POC Glucose 137 H 191 H Lactic Acid Calcium Phosphorus Magnesium Direct Bilirubin AST ALT Alkaline Phosphatase Lactate Dehydrogenase Troponin T C-Reactive Protein Total Protein Albumin Prealbumin Triglycerides Cholesterol LDL Cholesterol Direct HDL Cholesterol Urine pH Urine WBC (Auto) Urine Creatinine Urine Total Protein Fluid Total Protein Vancomycin Trough Rheumatoid Factor Complement C4 Miscellaneous Test Crossmatch 11/04/16 11/05/16 11/05/16 22:57 03:10 05:10 WBC RBC Hgb Hct MCV MCH MCHC RDW Plt Count Lymph % (Auto) [place] % (Auto) Lymph # [place] # Baso # Seg Neutrophils % Seg Neuts % (Manual) Lymphocytes % (Manual) Monocytes % (Manual) Eosinophils % (Manual) Basophils % (Manual) Nucleated RBC % Seg Neutrophils # Seg Neutrophils # Man Lymphocytes # (Manual) Monocytes # (Manual) Eosinophils # (Manual) Basophils # (Manual) PT INR Fibrinogen dRVVT Confirm Interp Factor V Activity POC ABG pH POC ABG pCO2 POC ABG pO2 ABG pO2 ABG HCO3 ABG Base Excess ABG Hemoglobin Oxyhemoglobin Sodium 136 L Potassium Chloride 97.2 L Carbon Dioxide BUN 32 H Creatinine 1.3 H Glucose 123 H POC Glucose 125 H 108 H Lactic Acid Calcium 7.8 L Phosphorus Magnesium Direct Bilirubin AST ALT Alkaline Phosphatase Lactate Dehydrogenase Troponin T C-Reactive Protein Total Protein Albumin Prealbumin Triglycerides Cholesterol LDL Cholesterol Direct HDL Cholesterol Urine pH Urine WBC (Auto) Urine Creatinine Urine Total Protein Fluid Total Protein Vancomycin Trough Rheumatoid Factor Complement C4 Miscellaneous Test Crossmatch 11/05/16 11/05/16 11/05/16 12:23 13:09 13:25 WBC RBC Hgb Hct MCV MCH MCHC RDW Plt Count Lymph % (Auto) [place] % (Auto) Lymph # [place] # Baso # Seg Neutrophils % Seg Neuts % (Manual) Lymphocytes % (Manual) Monocytes % (Manual) Eosinophils % (Manual) Basophils % (Manual) Nucleated RBC % Seg Neutrophils # Seg Neutrophils # Man Lymphocytes # (Manual) Monocytes # (Manual) Eosinophils # (Manual) Basophils # (Manual) PT INR Fibrinogen dRVVT Confirm Interp Factor V Activity POC ABG pH POC ABG pCO2 POC ABG pO2 ABG pO2 ABG HCO3 ABG Base Excess ABG Hemoglobin Oxyhemoglobin Sodium Potassium Chloride Carbon Dioxide BUN Creatinine Glucose POC Glucose 124 H Lactic Acid Calcium Phosphorus Magnesium Direct Bilirubin AST ALT Alkaline Phosphatase Lactate Dehydrogenase Troponin T C-Reactive Protein 11.40 H Total Protein Albumin Prealbumin Triglycerides Cholesterol LDL Cholesterol Direct HDL Cholesterol Urine pH 9.0 H Urine WBC (Auto) Urine Creatinine Urine Total Protein Fluid Total Protein Vancomycin Trough Rheumatoid Factor Complement C4 Miscellaneous Test Crossmatch 11/05/16 11/05/16 11/05/16 13:25 17:54 23:42 WBC RBC Hgb Hct MCV MCH MCHC RDW Plt Count Lymph % (Auto) [place] % (Auto) Lymph # [place] # Baso # Seg Neutrophils % Seg Neuts % (Manual) Lymphocytes % (Manual) Monocytes % (Manual) Eosinophils % (Manual) Basophils % (Manual) Nucleated RBC % Seg Neutrophils # Seg Neutrophils # Man Lymphocytes # (Manual) Monocytes # (Manual) Eosinophils # (Manual) Basophils # (Manual) PT INR Fibrinogen dRVVT Confirm Interp Factor V Activity POC ABG pH POC ABG pCO2 POC ABG pO2 ABG pO2 ABG HCO3 ABG Base Excess ABG Hemoglobin Oxyhemoglobin Sodium Potassium Chloride Carbon Dioxide BUN Creatinine Glucose POC Glucose 114 H 134 H Lactic Acid Calcium Phosphorus Magnesium Direct Bilirubin AST ALT Alkaline Phosphatase Lactate Dehydrogenase Troponin T C-Reactive Protein Total Protein Albumin Prealbumin Triglycerides Cholesterol LDL Cholesterol Direct HDL Cholesterol Urine pH Urine WBC (Auto) Urine Creatinine Urine Total Protein Fluid Total Protein Vancomycin Trough Rheumatoid Factor Complement C4 Miscellaneous Test Flexitest 1 H Crossmatch 11/06/16 11/06/16 11/06/16 04:56 06:25 06:25 WBC RBC 2.50 L Hgb 7.3 L Hct 22.5 L MCV MCH MCHC RDW 16.9 H Plt Count Lymph % (Auto) [place] % (Auto) 10.5 H Lymph # [place] # 1.1 H Baso # Seg Neutrophils % Seg Neuts % (Manual) Lymphocytes % (Manual) Monocytes % (Manual) Eosinophils % (Manual) Basophils % (Manual) Nucleated RBC % Seg Neutrophils # Seg Neutrophils # Man Lymphocytes # (Manual) Monocytes # (Manual) Eosinophils # (Manual) Basophils # (Manual) PT INR Fibrinogen dRVVT Confirm Interp Factor V Activity POC ABG pH POC ABG pCO2 POC ABG pO2 ABG pO2 ABG HCO3 ABG Base Excess ABG Hemoglobin Oxyhemoglobin Sodium Potassium 5.1 H Chloride 95.9 L Carbon Dioxide BUN 52 H Creatinine 1.8 H Glucose 117 H POC Glucose 120 H Lactic Acid Calcium Phosphorus Magnesium Direct Bilirubin AST 103 H ALT 77 H Alkaline Phosphatase 285 H Lactate Dehydrogenase Troponin T C-Reactive Protein Total Protein 6.2 L Albumin 1.8 L Prealbumin 0.180 L Triglycerides Cholesterol LDL Cholesterol Direct HDL Cholesterol Urine pH Urine WBC (Auto) Urine Creatinine Urine Total Protein Fluid Total Protein Vancomycin Trough Rheumatoid Factor Complement C4 Miscellaneous Test Crossmatch 11/06/16 11/06/16 11/06/16 11:56 17:14 23:52 WBC RBC Hgb Hct MCV MCH MCHC RDW Plt Count Lymph % (Auto) [place] % (Auto) Lymph # [place] # Baso # Seg Neutrophils % Seg Neuts % (Manual) Lymphocytes % (Manual) Monocytes % (Manual) Eosinophils % (Manual) Basophils % (Manual) Nucleated RBC % Seg Neutrophils # Seg Neutrophils # Man Lymphocytes # (Manual) Monocytes # (Manual) Eosinophils # (Manual) Basophils # (Manual) PT INR Fibrinogen dRVVT Confirm Interp Factor V Activity POC ABG pH POC ABG pCO2 POC ABG pO2 ABG pO2 ABG HCO3 ABG Base Excess ABG Hemoglobin Oxyhemoglobin Sodium Potassium Chloride Carbon Dioxide BUN Creatinine Glucose POC Glucose 141 H 125 H 130 H Lactic Acid Calcium Phosphorus Magnesium Direct Bilirubin AST ALT Alkaline Phosphatase Lactate Dehydrogenase Troponin T C-Reactive Protein Total Protein Albumin Prealbumin Triglycerides Cholesterol LDL Cholesterol Direct HDL Cholesterol Urine pH Urine WBC (Auto) Urine Creatinine Urine Total Protein Fluid Total Protein Vancomycin Trough Rheumatoid Factor Complement C4 Miscellaneous Test Crossmatch 11/07/16 11/07/16 11/07/16 06:30 06:30 09:37 WBC RBC 2.18 L Hgb 6.3 L Hct 19.7 L* MCV MCH MCHC RDW 16.8 H Plt Count Lymph % (Auto) [place] % (Auto) 10.0 H Lymph # [place] # 1.0 H Baso # Seg Neutrophils % Seg Neuts % (Manual) Lymphocytes % (Manual) Monocytes % (Manual) Eosinophils % (Manual) Basophils % (Manual) Nucleated RBC % Seg Neutrophils # Seg Neutrophils # Man Lymphocytes # (Manual) Monocytes # (Manual) Eosinophils # (Manual) Basophils # (Manual) PT INR Fibrinogen dRVVT Confirm Interp Factor V Activity POC ABG pH POC ABG pCO2 POC ABG pO2 ABG pO2 ABG HCO3 ABG Base Excess ABG Hemoglobin Oxyhemoglobin Sodium 135 L Potassium Chloride 95.6 L Carbon Dioxide BUN 70 H Creatinine 2.0 H Glucose 126 H POC Glucose Lactic Acid Calcium Phosphorus Magnesium Direct Bilirubin AST ALT Alkaline Phosphatase Lactate Dehydrogenase Troponin T C-Reactive Protein Total Protein Albumin Prealbumin Triglycerides Cholesterol LDL Cholesterol Direct HDL Cholesterol Urine pH Urine WBC (Auto) Urine Creatinine Urine Total Protein Fluid Total Protein Vancomycin Trough Rheumatoid Factor Complement C4 Miscellaneous Test Crossmatch See Detail 11/07/16 11/07/16 11/07/16 12:52 18:51 21:26 WBC RBC Hgb Hct MCV MCH MCHC RDW Plt Count Lymph % (Auto) [place] % (Auto) Lymph # [place] # Baso # Seg Neutrophils % Seg Neuts % (Manual) Lymphocytes % (Manual) Monocytes % (Manual) Eosinophils % (Manual) Basophils % (Manual) Nucleated RBC % Seg Neutrophils # Seg Neutrophils # Man Lymphocytes # (Manual) Monocytes # (Manual) Eosinophils # (Manual) Basophils # (Manual) PT INR Fibrinogen dRVVT Confirm Interp Factor V Activity POC ABG pH 7.523 H POC ABG pCO2 34.6 L POC ABG pO2 53 L ABG pO2 ABG HCO3 ABG Base Excess ABG Hemoglobin Oxyhemoglobin Sodium Potassium Chloride Carbon Dioxide BUN Creatinine Glucose POC Glucose 142 H 155 H Lactic Acid Calcium Phosphorus Magnesium Direct Bilirubin AST ALT Alkaline Phosphatase Lactate Dehydrogenase Troponin T C-Reactive Protein Total Protein Albumin Prealbumin Triglycerides Cholesterol LDL Cholesterol Direct HDL Cholesterol Urine pH Urine WBC (Auto) Urine Creatinine Urine Total Protein Fluid Total Protein Vancomycin Trough Rheumatoid Factor Complement C4 Miscellaneous Test Crossmatch 11/07/16 11/08/16 11/08/16 21:34 13:03 23:37 WBC RBC 2.63 L Hgb 7.7 L Hct 22.7 L MCV MCH MCHC RDW 17.0 H Plt Count Lymph % (Auto) [place] % (Auto) Lymph # [place] # Baso # Seg Neutrophils % Seg Neuts % (Manual) Lymphocytes % (Manual) Monocytes % (Manual) Eosinophils % (Manual) Basophils % (Manual) Nucleated RBC % Seg Neutrophils # Seg Neutrophils # Man Lymphocytes # (Manual) Monocytes # (Manual) Eosinophils # (Manual) Basophils # (Manual) PT INR Fibrinogen dRVVT Confirm Interp Factor V Activity POC ABG pH 7.478 H POC ABG pCO2 34.0 L POC ABG pO2 50 L ABG pO2 ABG HCO3 ABG Base Excess ABG Hemoglobin Oxyhemoglobin Sodium Potassium Chloride Carbon Dioxide BUN Creatinine Glucose POC Glucose 113 H Lactic Acid Calcium Phosphorus Magnesium Direct Bilirubin AST ALT Alkaline Phosphatase Lactate Dehydrogenase Troponin T C-Reactive Protein Total Protein Albumin Prealbumin Triglycerides Cholesterol LDL Cholesterol Direct HDL Cholesterol Urine pH Urine WBC (Auto) Urine Creatinine Urine Total Protein Fluid Total Protein Vancomycin Trough Rheumatoid Factor Complement C4 Miscellaneous Test Crossmatch 11/09/16 11/09/16 11/09/16 04:35 10:15 18:21 WBC RBC 2.68 L Hgb 7.8 L Hct 23.3 L MCV MCH MCHC RDW 17.0 H Plt Count Lymph % (Auto) [place] % (Auto) 12.1 H Lymph # [place] # 1.1 H Baso # Seg Neutrophils % Seg Neuts % (Manual) Lymphocytes % (Manual) Monocytes % (Manual) Eosinophils % (Manual) Basophils % (Manual) Nucleated RBC % Seg Neutrophils # Seg Neutrophils # Man Lymphocytes # (Manual) Monocytes # (Manual) Eosinophils # (Manual) Basophils # (Manual) PT INR Fibrinogen dRVVT Confirm Interp Factor V Activity POC ABG pH POC ABG pCO2 POC ABG pO2 ABG pO2 ABG HCO3 ABG Base Excess ABG Hemoglobin Oxyhemoglobin Sodium Potassium Chloride Carbon Dioxide BUN 51 H Creatinine 1.8 H Glucose POC Glucose 60 L Lactic Acid Calcium 8.3 L Phosphorus Magnesium Direct Bilirubin AST ALT Alkaline Phosphatase Lactate Dehydrogenase Troponin T C-Reactive Protein Total Protein Albumin Prealbumin Triglycerides Cholesterol LDL Cholesterol Direct HDL Cholesterol Urine pH Urine WBC (Auto) Urine Creatinine Urine Total Protein Fluid Total Protein Vancomycin Trough Rheumatoid Factor Complement C4 Miscellaneous Test Crossmatch 11/09/16 11/10/16 11/10/16 18:55 07:00 11:51 WBC RBC Hgb Hct MCV MCH MCHC RDW Plt Count Lymph % (Auto) [place] % (Auto) Lymph # [place] # Baso # Seg Neutrophils % Seg Neuts % (Manual) Lymphocytes % (Manual) Monocytes % (Manual) Eosinophils % (Manual) Basophils % (Manual) Nucleated RBC % Seg Neutrophils # Seg Neutrophils # Man Lymphocytes # (Manual) Monocytes # (Manual) Eosinophils # (Manual) Basophils # (Manual) PT INR Fibrinogen dRVVT Confirm Interp Factor V Activity POC ABG pH POC ABG pCO2 POC ABG pO2 ABG pO2 ABG HCO3 ABG Base Excess ABG Hemoglobin Oxyhemoglobin Sodium Potassium 3.0 L D Chloride 97.4 L Carbon Dioxide BUN 28 H Creatinine 1.3 H Glucose POC Glucose 68 L 120 H Lactic Acid Calcium 7.8 L Phosphorus Magnesium Direct Bilirubin AST ALT Alkaline Phosphatase Lactate Dehydrogenase Troponin T C-Reactive Protein Total Protein Albumin Prealbumin Triglycerides Cholesterol LDL Cholesterol Direct HDL Cholesterol Urine pH Urine WBC (Auto) Urine Creatinine Urine Total Protein Fluid Total Protein Vancomycin Trough Rheumatoid Factor Complement C4 Miscellaneous Test Crossmatch 11/10/16 11/11/16 11/11/16 14:20 06:59 06:59 WBC RBC 2.81 L Hgb 8.1 L Hct 24.4 L MCV MCH MCHC RDW 16.4 H Plt Count Lymph % (Auto) [place] % (Auto) 10.8 H Lymph # [place] # 1.0 H Baso # Seg Neutrophils % Seg Neuts % (Manual) Lymphocytes % (Manual) Monocytes % (Manual) Eosinophils % (Manual) Basophils % (Manual) Nucleated RBC % Seg Neutrophils # Seg Neutrophils # Man Lymphocytes # (Manual) Monocytes # (Manual) Eosinophils # (Manual) Basophils # (Manual) PT INR Fibrinogen dRVVT Confirm Interp Factor V Activity POC ABG pH POC ABG pCO2 POC ABG pO2 ABG pO2 ABG HCO3 ABG Base Excess ABG Hemoglobin Oxyhemoglobin Sodium Potassium Chloride Carbon Dioxide BUN Creatinine Glucose POC Glucose Lactic Acid Calcium Phosphorus Magnesium Direct Bilirubin AST ALT Alkaline Phosphatase Lactate Dehydrogenase 196 H Troponin T C-Reactive Protein Total Protein 6.1 L Albumin Prealbumin Triglycerides Cholesterol LDL Cholesterol Direct HDL Cholesterol Urine pH Urine WBC (Auto) Urine Creatinine Urine Total Protein Fluid Total Protein < 3.0 L Vancomycin Trough Rheumatoid Factor Complement C4 Miscellaneous Test Crossmatch 11/11/16 11/11/16 11/12/16 06:59 09:50 04:00 WBC RBC Hgb Hct MCV MCH MCHC RDW Plt Count Lymph % (Auto) [place] % (Auto) Lymph # [place] # Baso # Seg Neutrophils % Seg Neuts % (Manual) Lymphocytes % (Manual) Monocytes % (Manual) Eosinophils % (Manual) Basophils % (Manual) Nucleated RBC % Seg Neutrophils # Seg Neutrophils # Man Lymphocytes # (Manual) Monocytes # (Manual) Eosinophils # (Manual) Basophils # (Manual) PT INR 1.18 H Fibrinogen dRVVT Confirm Interp Factor V Activity POC ABG pH POC ABG pCO2 POC ABG pO2 ABG pO2 ABG HCO3 ABG Base Excess ABG Hemoglobin Oxyhemoglobin Sodium 136 L 133 L Potassium Chloride 96.1 L 94.8 L Carbon Dioxide 21 L BUN 37 H 42 H Creatinine 1.8 H 2.0 H Glucose POC Glucose Lactic Acid Calcium Phosphorus Magnesium Direct Bilirubin AST ALT Alkaline Phosphatase Lactate Dehydrogenase Troponin T C-Reactive Protein Total Protein Albumin Prealbumin Triglycerides Cholesterol LDL Cholesterol Direct HDL Cholesterol Urine pH Urine WBC (Auto) Urine Creatinine Urine Total Protein Fluid Total Protein Vancomycin Trough Rheumatoid Factor Complement C4 Miscellaneous Test Crossmatch 11/12/16 11/12/16 11/13/16 04:00 23:55 05:53 WBC RBC Hgb 8.9 L Hct 27.2 L MCV MCH MCHC RDW Plt Count Lymph % (Auto) [place] % (Auto) Lymph # [place] # Baso # Seg Neutrophils % Seg Neuts % (Manual) Lymphocytes % (Manual) Monocytes % (Manual) Eosinophils % (Manual) Basophils % (Manual) Nucleated RBC % Seg Neutrophils # Seg Neutrophils # Man Lymphocytes # (Manual) Monocytes # (Manual) Eosinophils # (Manual) Basophils # (Manual) PT INR Fibrinogen dRVVT Confirm Interp Factor V Activity POC ABG pH POC ABG pCO2 POC ABG pO2 ABG pO2 ABG HCO3 ABG Base Excess ABG Hemoglobin Oxyhemoglobin Sodium Potassium Chloride Carbon Dioxide BUN Creatinine Glucose POC Glucose 132 H 120 H Lactic Acid Calcium Phosphorus Magnesium Direct Bilirubin AST ALT Alkaline Phosphatase Lactate Dehydrogenase Troponin T C-Reactive Protein Total Protein Albumin Prealbumin Triglycerides Cholesterol LDL Cholesterol Direct HDL Cholesterol Urine pH Urine WBC (Auto) Urine Creatinine Urine Total Protein Fluid Total Protein Vancomycin Trough Rheumatoid Factor Complement C4 Miscellaneous Test Crossmatch 11/13/16 11/13/16 11/13/16 11:43 17:09 23:41 WBC RBC Hgb Hct MCV MCH MCHC RDW Plt Count Lymph % (Auto) [place] % (Auto) Lymph # [place] # Baso # Seg Neutrophils % Seg Neuts % (Manual) Lymphocytes % (Manual) Monocytes % (Manual) Eosinophils % (Manual) Basophils % (Manual) Nucleated RBC % Seg Neutrophils # Seg Neutrophils # Man Lymphocytes # (Manual) Monocytes # (Manual) Eosinophils # (Manual) Basophils # (Manual) PT INR Fibrinogen dRVVT Confirm Interp Factor V Activity POC ABG pH POC ABG pCO2 POC ABG pO2 ABG pO2 ABG HCO3 ABG Base Excess ABG Hemoglobin Oxyhemoglobin Sodium Potassium Chloride Carbon Dioxide BUN Creatinine Glucose POC Glucose 114 H 113 H 108 H Lactic Acid Calcium Phosphorus Magnesium Direct Bilirubin AST ALT Alkaline Phosphatase Lactate Dehydrogenase Troponin T C-Reactive Protein Total Protein Albumin Prealbumin Triglycerides Cholesterol LDL Cholesterol Direct HDL Cholesterol Urine pH Urine WBC (Auto) Urine Creatinine Urine Total Protein Fluid Total Protein Vancomycin Trough Rheumatoid Factor Complement C4 Miscellaneous Test Crossmatch 11/13/16 11/15/16 11/15/16 Unknown 00:37 03:30 WBC 11.2 H RBC 2.72 L Hgb 7.6 L Hct 23.4 L MCV MCH MCHC RDW 16.5 H Plt Count Lymph % (Auto) [place] % (Auto) Lymph # [place] # Baso # Seg Neutrophils % Seg Neuts % (Manual) Lymphocytes % (Manual) Monocytes % (Manual) Eosinophils % (Manual) Basophils % (Manual) Nucleated RBC % Seg Neutrophils # Seg Neutrophils # Man Lymphocytes # (Manual) Monocytes # (Manual) Eosinophils # (Manual) Basophils # (Manual) PT INR Fibrinogen dRVVT Confirm Interp Factor V Activity POC ABG pH POC ABG pCO2 POC ABG pO2 ABG pO2 ABG HCO3 ABG Base Excess ABG Hemoglobin Oxyhemoglobin Sodium 135 L Potassium Chloride 95.2 L Carbon Dioxide BUN 52 H Creatinine 2.2 H Glucose POC Glucose 108 H Lactic Acid Calcium Phosphorus Magnesium Direct Bilirubin AST ALT Alkaline Phosphatase Lactate Dehydrogenase Troponin T C-Reactive Protein Total Protein Albumin Prealbumin Triglycerides Cholesterol LDL Cholesterol Direct HDL Cholesterol Urine pH Urine WBC (Auto) Urine Creatinine Urine Total Protein Fluid Total Protein Vancomycin Trough Rheumatoid Factor Complement C4 Miscellaneous Test Crossmatch 11/15/16 11/15/16 11/15/16 03:30 05:04 11:50 WBC RBC Hgb Hct MCV MCH MCHC RDW Plt Count Lymph % (Auto) [place] % (Auto) Lymph # [place] # Baso # Seg Neutrophils % Seg Neuts % (Manual) Lymphocytes % (Manual) Monocytes % (Manual) Eosinophils % (Manual) Basophils % (Manual) Nucleated RBC % Seg Neutrophils # Seg Neutrophils # Man Lymphocytes # (Manual) Monocytes # (Manual) Eosinophils # (Manual) Basophils # (Manual) PT INR Fibrinogen dRVVT Confirm Interp Factor V Activity POC ABG pH POC ABG pCO2 POC ABG pO2 ABG pO2 ABG HCO3 ABG Base Excess ABG Hemoglobin Oxyhemoglobin Sodium Potassium 3.4 L Chloride Carbon Dioxide BUN 25 H Creatinine 1.5 H Glucose 103 H POC Glucose 121 H 144 H Lactic Acid Calcium Phosphorus Magnesium Direct Bilirubin AST ALT Alkaline Phosphatase Lactate Dehydrogenase Troponin T C-Reactive Protein Total Protein Albumin Prealbumin Triglycerides Cholesterol LDL Cholesterol Direct HDL Cholesterol Urine pH Urine WBC (Auto) Urine Creatinine Urine Total Protein Fluid Total Protein Vancomycin Trough Rheumatoid Factor Complement C4 Miscellaneous Test Crossmatch 11/15/16 11/15/16 11/16/16 21:28 23:20 11:44 WBC RBC Hgb Hct MCV MCH MCHC RDW Plt Count Lymph % (Auto) [place] % (Auto) Lymph # [place] # Baso # Seg Neutrophils % Seg Neuts % (Manual) Lymphocytes % (Manual) Monocytes % (Manual) Eosinophils % (Manual) Basophils % (Manual) Nucleated RBC % Seg Neutrophils # Seg Neutrophils # Man Lymphocytes # (Manual) Monocytes # (Manual) Eosinophils # (Manual) Basophils # (Manual) PT INR Fibrinogen dRVVT Confirm Interp Factor V Activity POC ABG pH 7.462 H POC ABG pCO2 POC ABG pO2 71 L ABG pO2 ABG HCO3 ABG Base Excess ABG Hemoglobin Oxyhemoglobin Sodium Potassium Chloride Carbon Dioxide BUN Creatinine Glucose POC Glucose 116 H 133 H Lactic Acid Calcium Phosphorus Magnesium Direct Bilirubin AST ALT Alkaline Phosphatase Lactate Dehydrogenase Troponin T C-Reactive Protein Total Protein Albumin Prealbumin Triglycerides Cholesterol LDL Cholesterol Direct HDL Cholesterol Urine pH Urine WBC (Auto) Urine Creatinine Urine Total Protein Fluid Total Protein Vancomycin Trough Rheumatoid Factor Complement C4 Miscellaneous Test Crossmatch 11/16/16 11/16/16 11/16/16 12:20 17:05 23:35 WBC 11.7 H RBC 2.73 L Hgb 7.6 L Hct 23.7 L MCV MCH MCHC RDW 16.6 H Plt Count Lymph % (Auto) [place] % (Auto) Lymph # [place] # Baso # Seg Neutrophils % Seg Neuts % (Manual) Lymphocytes % (Manual) Monocytes % (Manual) Eosinophils % (Manual) Basophils % (Manual) Nucleated RBC % Seg Neutrophils # Seg Neutrophils # Man Lymphocytes # (Manual) Monocytes # (Manual) Eosinophils # (Manual) Basophils # (Manual) PT INR Fibrinogen dRVVT Confirm Interp Factor V Activity POC ABG pH POC ABG pCO2 POC ABG pO2 ABG pO2 ABG HCO3 ABG Base Excess ABG Hemoglobin Oxyhemoglobin Sodium Potassium Chloride Carbon Dioxide BUN Creatinine Glucose POC Glucose 154 H 125 H Lactic Acid Calcium Phosphorus Magnesium Direct Bilirubin AST ALT Alkaline Phosphatase Lactate Dehydrogenase Troponin T C-Reactive Protein Total Protein Albumin Prealbumin Triglycerides Cholesterol LDL Cholesterol Direct HDL Cholesterol Urine pH Urine WBC (Auto) Urine Creatinine Urine Total Protein Fluid Total Protein Vancomycin Trough Rheumatoid Factor Complement C4 Miscellaneous Test Crossmatch 11/17/16 11/17/16 11/17/16 03:20 03:20 03:20 WBC RBC 2.55 L Hgb 7.3 L Hct 21.9 L MCV MCH MCHC RDW 16.6 H Plt Count Lymph % (Auto) [place] % (Auto) 11.5 H Lymph # [place] # 1.1 H Baso # Seg Neutrophils % Seg Neuts % (Manual) Lymphocytes % (Manual) Monocytes % (Manual) Eosinophils % (Manual) Basophils % (Manual) Nucleated RBC % Seg Neutrophils # Seg Neutrophils # Man Lymphocytes # (Manual) Monocytes # (Manual) Eosinophils # (Manual) Basophils # (Manual) PT 16.8 H INR 1.37 H Fibrinogen dRVVT Confirm Interp Factor V Activity POC ABG pH POC ABG pCO2 POC ABG pO2 ABG pO2 ABG HCO3 ABG Base Excess ABG Hemoglobin Oxyhemoglobin Sodium Potassium 3.5 L Chloride Carbon Dioxide BUN 21 H Creatinine Glucose POC Glucose Lactic Acid Calcium 7.9 L Phosphorus Magnesium Direct Bilirubin AST ALT Alkaline Phosphatase Lactate Dehydrogenase Troponin T C-Reactive Protein Total Protein Albumin Prealbumin Triglycerides Cholesterol LDL Cholesterol Direct HDL Cholesterol Urine pH Urine WBC (Auto) Urine Creatinine Urine Total Protein Fluid Total Protein Vancomycin Trough Rheumatoid Factor Complement C4 Miscellaneous Test Crossmatch 11/17/16 11/17/16 11/17/16 06:34 11:21 21:22 WBC RBC Hgb Hct MCV MCH MCHC RDW Plt Count Lymph % (Auto) [place] % (Auto) Lymph # [place] # Baso # Seg Neutrophils % Seg Neuts % (Manual) Lymphocytes % (Manual) Monocytes % (Manual) Eosinophils % (Manual) Basophils % (Manual) Nucleated RBC % Seg Neutrophils # Seg Neutrophils # Man Lymphocytes # (Manual) Monocytes # (Manual) Eosinophils # (Manual) Basophils # (Manual) PT INR Fibrinogen dRVVT Confirm Interp Factor V Activity POC ABG pH 7.467 H POC ABG pCO2 POC ABG pO2 73 L ABG pO2 ABG HCO3 ABG Base Excess ABG Hemoglobin Oxyhemoglobin Sodium Potassium Chloride Carbon Dioxide BUN Creatinine Glucose POC Glucose 121 H 119 H Lactic Acid Calcium Phosphorus Magnesium Direct Bilirubin AST ALT Alkaline Phosphatase Lactate Dehydrogenase Troponin T C-Reactive Protein Total Protein Albumin Prealbumin Triglycerides Cholesterol LDL Cholesterol Direct HDL Cholesterol Urine pH Urine WBC (Auto) Urine Creatinine Urine Total Protein Fluid Total Protein Vancomycin Trough Rheumatoid Factor Complement C4 Miscellaneous Test Crossmatch 11/18/16 11/18/16 11/19/16 12:16 17:19 00:00 WBC RBC Hgb Hct MCV MCH MCHC RDW Plt Count Lymph % (Auto) [place] % (Auto) Lymph # [place] # Baso # Seg Neutrophils % Seg Neuts % (Manual) Lymphocytes % (Manual) Monocytes % (Manual) Eosinophils % (Manual) Basophils % (Manual) Nucleated RBC % Seg Neutrophils # Seg Neutrophils # Man Lymphocytes # (Manual) Monocytes # (Manual) Eosinophils # (Manual) Basophils # (Manual) PT INR Fibrinogen dRVVT Confirm Interp Factor V Activity POC ABG pH POC ABG pCO2 POC ABG pO2 ABG pO2 ABG HCO3 ABG Base Excess ABG Hemoglobin Oxyhemoglobin Sodium Potassium Chloride Carbon Dioxide BUN Creatinine Glucose POC Glucose 124 H 162 H 139 H Lactic Acid Calcium Phosphorus Magnesium Direct Bilirubin AST ALT Alkaline Phosphatase Lactate Dehydrogenase Troponin T C-Reactive Protein Total Protein Albumin Prealbumin Triglycerides Cholesterol LDL Cholesterol Direct HDL Cholesterol Urine pH Urine WBC (Auto) Urine Creatinine Urine Total Protein Fluid Total Protein Vancomycin Trough Rheumatoid Factor Complement C4 Miscellaneous Test Crossmatch 11/19/16 11/19/16 11/20/16 05:00 12:43 00:40 WBC RBC Hgb Hct MCV MCH MCHC RDW Plt Count Lymph % (Auto) [place] % (Auto) Lymph # [place] # Baso # Seg Neutrophils % Seg Neuts % (Manual) Lymphocytes % (Manual) Monocytes % (Manual) Eosinophils % (Manual) Basophils % (Manual) Nucleated RBC % Seg Neutrophils # Seg Neutrophils # Man Lymphocytes # (Manual) Monocytes # (Manual) Eosinophils # (Manual) Basophils # (Manual) PT INR Fibrinogen dRVVT Confirm Interp Factor V Activity POC ABG pH POC ABG pCO2 POC ABG pO2 ABG pO2 ABG HCO3 ABG Base Excess ABG Hemoglobin Oxyhemoglobin Sodium Potassium Chloride Carbon Dioxide BUN Creatinine Glucose POC Glucose 110 H 125 H 136 H Lactic Acid Calcium Phosphorus Magnesium Direct Bilirubin AST ALT Alkaline Phosphatase Lactate Dehydrogenase Troponin T C-Reactive Protein Total Protein Albumin Prealbumin Triglycerides Cholesterol LDL Cholesterol Direct HDL Cholesterol Urine pH Urine WBC (Auto) Urine Creatinine Urine Total Protein Fluid Total Protein Vancomycin Trough Rheumatoid Factor Complement C4 Miscellaneous Test Crossmatch 11/20/16 11/20/16 11/20/16 05:00 05:00 05:51 WBC 13.1 H RBC 2.74 L Hgb 7.7 L Hct 23.6 L MCV MCH MCHC RDW 16.9 H Plt Count Lymph % (Auto) [place] % (Auto) 10.8 H Lymph # [place] # 1.4 H Baso # Seg Neutrophils % Seg Neuts % (Manual) Lymphocytes % (Manual) Monocytes % (Manual) Eosinophils % (Manual) Basophils % (Manual) Nucleated RBC % Seg Neutrophils # 7.9 H Seg Neutrophils # Man Lymphocytes # (Manual) Monocytes # (Manual) Eosinophils # (Manual) Basophils # (Manual) PT INR Fibrinogen dRVVT Confirm Interp Factor V Activity POC ABG pH POC ABG pCO2 POC ABG pO2 ABG pO2 ABG HCO3 ABG Base Excess ABG Hemoglobin Oxyhemoglobin Sodium Potassium Chloride Carbon Dioxide BUN 31 H Creatinine 1.8 H Glucose 129 H POC Glucose 133 H Lactic Acid Calcium Phosphorus Magnesium Direct Bilirubin AST ALT Alkaline Phosphatase Lactate Dehydrogenase Troponin T C-Reactive Protein Total Protein Albumin Prealbumin Triglycerides Cholesterol LDL Cholesterol Direct HDL Cholesterol Urine pH Urine WBC (Auto) Urine Creatinine Urine Total Protein Fluid Total Protein Vancomycin Trough Rheumatoid Factor Complement C4 Miscellaneous Test Crossmatch 11/20/16 11/20/16 11/21/16 12:40 18:10 01:20 WBC RBC Hgb Hct MCV MCH MCHC RDW Plt Count Lymph % (Auto) [place] % (Auto) Lymph # [place] # Baso # Seg Neutrophils % Seg Neuts % (Manual) Lymphocytes % (Manual) Monocytes % (Manual) Eosinophils % (Manual) Basophils % (Manual) Nucleated RBC % Seg Neutrophils # Seg Neutrophils # Man Lymphocytes # (Manual) Monocytes # (Manual) Eosinophils # (Manual) Basophils # (Manual) PT INR Fibrinogen dRVVT Confirm Interp Factor V Activity POC ABG pH POC ABG pCO2 POC ABG pO2 ABG pO2 ABG HCO3 ABG Base Excess ABG Hemoglobin Oxyhemoglobin Sodium Potassium Chloride Carbon Dioxide BUN Creatinine Glucose POC Glucose 134 H 138 H 136 H Lactic Acid Calcium Phosphorus Magnesium Direct Bilirubin AST ALT Alkaline Phosphatase Lactate Dehydrogenase Troponin T C-Reactive Protein Total Protein Albumin Prealbumin Triglycerides Cholesterol LDL Cholesterol Direct HDL Cholesterol Urine pH Urine WBC (Auto) Urine Creatinine Urine Total Protein Fluid Total Protein Vancomycin Trough Rheumatoid Factor Complement C4 Miscellaneous Test Crossmatch 11/21/16 11/21/16 11/21/16 07:04 07:45 07:45 WBC 22.0 H RBC 2.91 L Hgb 8.2 L Hct 25.4 L MCV MCH MCHC RDW 17.1 H Plt Count Lymph % (Auto) [place] % (Auto) Lymph # [place] # Baso # Seg Neutrophils % Seg Neuts % (Manual) Lymphocytes % (Manual) 8.0 L Monocytes % (Manual) Eosinophils % (Manual) Basophils % (Manual) Nucleated RBC % Seg Neutrophils # Seg Neutrophils # Man 14.7 H Lymphocytes # (Manual) Monocytes # (Manual) 1.1 H Eosinophils # (Manual) Basophils # (Manual) PT INR Fibrinogen dRVVT Confirm Interp Factor V Activity POC ABG pH POC ABG pCO2 POC ABG pO2 ABG pO2 ABG HCO3 ABG Base Excess ABG Hemoglobin Oxyhemoglobin Sodium Potassium Chloride Carbon Dioxide BUN 42 H Creatinine 2.0 H Glucose POC Glucose 108 H Lactic Acid Calcium Phosphorus Magnesium Direct Bilirubin AST ALT Alkaline Phosphatase Lactate Dehydrogenase Troponin T C-Reactive Protein Total Protein Albumin Prealbumin Triglycerides Cholesterol LDL Cholesterol Direct HDL Cholesterol Urine pH Urine WBC (Auto) Urine Creatinine Urine Total Protein Fluid Total Protein Vancomycin Trough Rheumatoid Factor Complement C4 Miscellaneous Test Crossmatch 11/21/16 11/21/16 11/21/16 08:38 10:09 11:20 WBC RBC Hgb Hct MCV MCH MCHC RDW Plt Count Lymph % (Auto) [place] % (Auto) Lymph # [place] # Baso # Seg Neutrophils % Seg Neuts % (Manual) Lymphocytes % (Manual) Monocytes % (Manual) Eosinophils % (Manual) Basophils % (Manual) Nucleated RBC % Seg Neutrophils # Seg Neutrophils # Man Lymphocytes # (Manual) Monocytes # (Manual) Eosinophils # (Manual) Basophils # (Manual) PT INR Fibrinogen dRVVT Confirm Interp Factor V Activity POC ABG pH 7.346 L POC ABG pCO2 34.4 L POC ABG pO2 314 H ABG pO2 ABG HCO3 ABG Base Excess ABG Hemoglobin Oxyhemoglobin Sodium Potassium Chloride Carbon Dioxide BUN Creatinine Glucose POC Glucose 195 H 153 H Lactic Acid Calcium Phosphorus Magnesium Direct Bilirubin AST ALT Alkaline Phosphatase Lactate Dehydrogenase Troponin T C-Reactive Protein Total Protein Albumin Prealbumin Triglycerides Cholesterol LDL Cholesterol Direct HDL Cholesterol Urine pH Urine WBC (Auto) Urine Creatinine Urine Total Protein Fluid Total Protein Vancomycin Trough Rheumatoid Factor Complement C4 Miscellaneous Test Crossmatch 11/21/16 11/22/16 11/22/16 23:37 04:48 05:00 WBC 29.7 H RBC 2.73 L Hgb 7.5 L Hct 24.2 L MCV MCH 27 L MCHC RDW 17.4 H Plt Count Lymph % (Auto) [place] % (Auto) Lymph # [place] # Baso # Seg Neutrophils % Seg Neuts % (Manual) Lymphocytes % (Manual) 7.0 L Monocytes % (Manual) Eosinophils % (Manual) Basophils % (Manual) Nucleated RBC % Seg Neutrophils # Seg Neutrophils # Man 15.4 H Lymphocytes # (Manual) Monocytes # (Manual) Eosinophils # (Manual) Basophils # (Manual) PT INR Fibrinogen dRVVT Confirm Interp Factor V Activity POC ABG pH POC ABG pCO2 24.6 L POC ABG pO2 189 H ABG pO2 ABG HCO3 ABG Base Excess ABG Hemoglobin Oxyhemoglobin Sodium Potassium Chloride Carbon Dioxide BUN Creatinine Glucose POC Glucose 65 L Lactic Acid Calcium Phosphorus Magnesium Direct Bilirubin AST ALT Alkaline Phosphatase Lactate Dehydrogenase Troponin T C-Reactive Protein Total Protein Albumin Prealbumin Triglycerides Cholesterol LDL Cholesterol Direct HDL Cholesterol Urine pH Urine WBC (Auto) Urine Creatinine Urine Total Protein Fluid Total Protein Vancomycin Trough Rheumatoid Factor Complement C4 Miscellaneous Test Crossmatch 11/22/16 11/23/16 11/23/16 05:00 03:44 04:06 WBC RBC 2.52 L Hgb 7.2 L Hct 21.5 L MCV MCH MCHC RDW 17.1 H Plt Count Lymph % (Auto) [place] % (Auto) 12.4 H Lymph # [place] # 1.4 H Baso # Seg Neutrophils % Seg Neuts % (Manual) Lymphocytes % (Manual) Monocytes % (Manual) Eosinophils % (Manual) Basophils % (Manual) Nucleated RBC % Seg Neutrophils # Seg Neutrophils # Man Lymphocytes # (Manual) Monocytes # (Manual) Eosinophils # (Manual) Basophils # (Manual) PT INR Fibrinogen dRVVT Confirm Interp Factor V Activity POC ABG pH 7.493 H POC ABG pCO2 29.5 L POC ABG pO2 49 L ABG pO2 ABG HCO3 ABG Base Excess ABG Hemoglobin Oxyhemoglobin Sodium 134 L Potassium Chloride 95.9 L Carbon Dioxide 14 L D BUN 51 H Creatinine 2.6 H Glucose POC Glucose Lactic Acid Calcium Phosphorus Magnesium Direct Bilirubin AST ALT Alkaline Phosphatase Lactate Dehydrogenase Troponin T C-Reactive Protein Total Protein Albumin Prealbumin Triglycerides Cholesterol LDL Cholesterol Direct HDL Cholesterol Urine pH Urine WBC (Auto) Urine Creatinine Urine Total Protein Fluid Total Protein Vancomycin Trough Rheumatoid Factor Complement C4 Miscellaneous Test Crossmatch 11/23/16 11/23/16 11/24/16 04:06 11:29 06:39 WBC RBC Hgb Hct MCV MCH MCHC RDW Plt Count Lymph % (Auto) [place] % (Auto) Lymph # [place] # Baso # Seg Neutrophils % Seg Neuts % (Manual) Lymphocytes % (Manual) Monocytes % (Manual) Eosinophils % (Manual) Basophils % (Manual) Nucleated RBC % Seg Neutrophils # Seg Neutrophils # Man Lymphocytes # (Manual) Monocytes # (Manual) Eosinophils # (Manual) Basophils # (Manual) PT INR Fibrinogen dRVVT Confirm Interp Factor V Activity POC ABG pH POC ABG pCO2 POC ABG pO2 ABG pO2 ABG HCO3 ABG Base Excess ABG Hemoglobin Oxyhemoglobin Sodium 136 L Potassium Chloride 95.2 L Carbon Dioxide BUN 60 H Creatinine 2.9 H Glucose POC Glucose 69 L 305 H Lactic Acid Calcium Phosphorus Magnesium 1.60 L Direct Bilirubin AST ALT Alkaline Phosphatase Lactate Dehydrogenase Troponin T C-Reactive Protein Total Protein Albumin Prealbumin Triglycerides Cholesterol LDL Cholesterol Direct HDL Cholesterol Urine pH Urine WBC (Auto) Urine Creatinine Urine Total Protein Fluid Total Protein Vancomycin Trough Rheumatoid Factor Complement C4 Miscellaneous Test Crossmatch 11/24/16 11/24/16 11/24/16 06:43 08:08 08:08 WBC 11.2 H RBC 2.47 L Hgb 6.8 L Hct 20.6 L MCV MCH MCHC RDW 17.0 H Plt Count Lymph % (Auto) [place] % (Auto) 10.3 H Lymph # [place] # 1.2 H Baso # Seg Neutrophils % Seg Neuts % (Manual) Lymphocytes % (Manual) Monocytes % (Manual) Eosinophils % (Manual) Basophils % (Manual) Nucleated RBC % Seg Neutrophils # Seg Neutrophils # Man Lymphocytes # (Manual) Monocytes # (Manual) Eosinophils # (Manual) Basophils # (Manual) PT INR Fibrinogen dRVVT Confirm Interp Factor V Activity POC ABG pH POC ABG pCO2 POC ABG pO2 ABG pO2 ABG HCO3 ABG Base Excess ABG Hemoglobin Oxyhemoglobin Sodium 135 L Potassium Chloride 96.3 L Carbon Dioxide BUN 61 H Creatinine 3.1 H Glucose POC Glucose 62 L Lactic Acid Calcium 8.2 L Phosphorus Magnesium Direct Bilirubin AST ALT Alkaline Phosphatase Lactate Dehydrogenase Troponin T C-Reactive Protein Total Protein Albumin Prealbumin Triglycerides Cholesterol LDL Cholesterol Direct HDL Cholesterol Urine pH Urine WBC (Auto) Urine Creatinine Urine Total Protein Fluid Total Protein Vancomycin Trough Rheumatoid Factor Complement C4 Miscellaneous Test Crossmatch 11/24/16 11/24/16 11/24/16 08:34 11:20 12:41 WBC RBC Hgb Hct MCV MCH MCHC RDW Plt Count Lymph % (Auto) [place] % (Auto) Lymph # [place] # Baso # Seg Neutrophils % Seg Neuts % (Manual) Lymphocytes % (Manual) Monocytes % (Manual) Eosinophils % (Manual) Basophils % (Manual) Nucleated RBC % Seg Neutrophils # Seg Neutrophils # Man Lymphocytes # (Manual) Monocytes # (Manual) Eosinophils # (Manual) Basophils # (Manual) PT INR Fibrinogen dRVVT Confirm Interp Factor V Activity POC ABG pH POC ABG pCO2 POC ABG pO2 ABG pO2 ABG HCO3 ABG Base Excess ABG Hemoglobin Oxyhemoglobin Sodium Potassium Chloride Carbon Dioxide BUN Creatinine Glucose POC Glucose 108 H Lactic Acid Calcium Phosphorus Magnesium 1.60 L Direct Bilirubin AST ALT Alkaline Phosphatase Lactate Dehydrogenase Troponin T C-Reactive Protein Total Protein Albumin Prealbumin Triglycerides Cholesterol LDL Cholesterol Direct HDL Cholesterol Urine pH Urine WBC (Auto) Urine Creatinine Urine Total Protein Fluid Total Protein Vancomycin Trough Rheumatoid Factor Complement C4 Miscellaneous Test Crossmatch See Detail 11/25/16 11/25/16 11/25/16 00:03 04:42 04:42 WBC RBC 3.03 L Hgb 8.6 L Hct 25.3 L MCV MCH MCHC RDW 16.2 H Plt Count Lymph % (Auto) [place] % (Auto) 8.1 H Lymph # [place] # Baso # Seg Neutrophils % 71.3 H Seg Neuts % (Manual) Lymphocytes % (Manual) Monocytes % (Manual) Eosinophils % (Manual) Basophils % (Manual) Nucleated RBC % Seg Neutrophils # Seg Neutrophils # Man Lymphocytes # (Manual) Monocytes # (Manual) Eosinophils # (Manual) Basophils # (Manual) PT INR Fibrinogen dRVVT Confirm Interp Factor V Activity POC ABG pH POC ABG pCO2 POC ABG pO2 ABG pO2 ABG HCO3 ABG Base Excess ABG Hemoglobin Oxyhemoglobin Sodium Potassium Chloride Carbon Dioxide BUN 61 H Creatinine 3.0 H Glucose 102 H POC Glucose 113 H Lactic Acid Calcium 8.2 L Phosphorus Magnesium Direct Bilirubin AST ALT Alkaline Phosphatase 142 H Lactate Dehydrogenase Troponin T C-Reactive Protein Total Protein 5.7 L Albumin 1.5 L Prealbumin Triglycerides Cholesterol LDL Cholesterol Direct HDL Cholesterol Urine pH Urine WBC (Auto) Urine Creatinine Urine Total Protein Fluid Total Protein Vancomycin Trough Rheumatoid Factor Complement C4 Miscellaneous Test Crossmatch 11/25/16 11/25/16 11/25/16 05:12 11:31 14:12 WBC RBC Hgb Hct MCV MCH MCHC RDW Plt Count Lymph % (Auto) [place] % (Auto) Lymph # [place] # Baso # Seg Neutrophils % Seg Neuts % (Manual) Lymphocytes % (Manual) Monocytes % (Manual) Eosinophils % (Manual) Basophils % (Manual) Nucleated RBC % Seg Neutrophils # Seg Neutrophils # Man Lymphocytes # (Manual) Monocytes # (Manual) Eosinophils # (Manual) Basophils # (Manual) PT INR Fibrinogen dRVVT Confirm Interp Factor V Activity POC ABG pH 7.487 H POC ABG pCO2 POC ABG pO2 153 H ABG pO2 ABG HCO3 ABG Base Excess ABG Hemoglobin Oxyhemoglobin Sodium Potassium Chloride Carbon Dioxide BUN Creatinine Glucose POC Glucose 131 H 140 H Lactic Acid Calcium Phosphorus Magnesium Direct Bilirubin AST ALT Alkaline Phosphatase Lactate Dehydrogenase Troponin T C-Reactive Protein Total Protein Albumin Prealbumin Triglycerides Cholesterol LDL Cholesterol Direct HDL Cholesterol Urine pH Urine WBC (Auto) Urine Creatinine Urine Total Protein Fluid Total Protein Vancomycin Trough Rheumatoid Factor Complement C4 Miscellaneous Test Crossmatch 11/25/16 11/26/16 11/26/16 17:23 00:09 05:13 WBC RBC 2.94 L Hgb 8.4 L Hct 24.6 L MCV MCH MCHC RDW 16.4 H Plt Count Lymph % (Auto) [place] % (Auto) 12.3 H Lymph # [place] # 1.1 H Baso # Seg Neutrophils % Seg Neuts % (Manual) Lymphocytes % (Manual) Monocytes % (Manual) Eosinophils % (Manual) Basophils % (Manual) Nucleated RBC % Seg Neutrophils # Seg Neutrophils # Man Lymphocytes # (Manual) Monocytes # (Manual) Eosinophils # (Manual) Basophils # (Manual) PT INR Fibrinogen dRVVT Confirm Interp Factor V Activity POC ABG pH POC ABG pCO2 POC ABG pO2 ABG pO2 ABG HCO3 ABG Base Excess ABG Hemoglobin Oxyhemoglobin Sodium Potassium Chloride Carbon Dioxide BUN Creatinine Glucose POC Glucose 146 H 112 H Lactic Acid Calcium Phosphorus Magnesium Direct Bilirubin AST ALT Alkaline Phosphatase Lactate Dehydrogenase Troponin T C-Reactive Protein Total Protein Albumin Prealbumin Triglycerides Cholesterol LDL Cholesterol Direct HDL Cholesterol Urine pH Urine WBC (Auto) Urine Creatinine Urine Total Protein Fluid Total Protein Vancomycin Trough Rheumatoid Factor Complement C4 Miscellaneous Test Crossmatch 11/26/16 11/26/16 11/26/16 05:13 05:28 11:53 WBC RBC Hgb Hct MCV MCH MCHC RDW Plt Count Lymph % (Auto) [place] % (Auto) Lymph # [place] # Baso # Seg Neutrophils % Seg Neuts % (Manual) Lymphocytes % (Manual) Monocytes % (Manual) Eosinophils % (Manual) Basophils % (Manual) Nucleated RBC % Seg Neutrophils # Seg Neutrophils # Man Lymphocytes # (Manual) Monocytes # (Manual) Eosinophils # (Manual) Basophils # (Manual) PT INR Fibrinogen dRVVT Confirm Interp Factor V Activity POC ABG pH POC ABG pCO2 POC ABG pO2 ABG pO2 ABG HCO3 ABG Base Excess ABG Hemoglobin Oxyhemoglobin Sodium Potassium Chloride 97.8 L Carbon Dioxide BUN 37 H Creatinine 2.0 H Glucose 109 H POC Glucose 117 H 111 H Lactic Acid Calcium 7.9 L Phosphorus 1.80 L D Magnesium Direct Bilirubin AST ALT Alkaline Phosphatase Lactate Dehydrogenase Troponin T C-Reactive Protein Total Protein Albumin Prealbumin Triglycerides Cholesterol LDL Cholesterol Direct HDL Cholesterol Urine pH Urine WBC (Auto) Urine Creatinine Urine Total Protein Fluid Total Protein Vancomycin Trough Rheumatoid Factor Complement C4 Miscellaneous Test Crossmatch 11/26/16 11/27/16 11/27/16 17:14 04:50 06:02 WBC RBC Hgb Hct MCV MCH MCHC RDW Plt Count Lymph % (Auto) [place] % (Auto) Lymph # [place] # Baso # Seg Neutrophils % Seg Neuts % (Manual) Lymphocytes % (Manual) Monocytes % (Manual) Eosinophils % (Manual) Basophils % (Manual) Nucleated RBC % Seg Neutrophils # Seg Neutrophils # Man Lymphocytes # (Manual) Monocytes # (Manual) Eosinophils # (Manual) Basophils # (Manual) PT INR Fibrinogen dRVVT Confirm Interp Factor V Activity POC ABG pH POC ABG pCO2 POC ABG pO2 ABG pO2 75.2 L ABG HCO3 26.4 H ABG Base Excess ABG Hemoglobin 7.6 L Oxyhemoglobin 94.8 L Sodium Potassium Chloride Carbon Dioxide BUN 49 H Creatinine 2.3 H Glucose POC Glucose 115 H Lactic Acid Calcium Phosphorus 1.50 L Magnesium Direct Bilirubin AST ALT Alkaline Phosphatase Lactate Dehydrogenase Troponin T C-Reactive Protein Total Protein Albumin Prealbumin Triglycerides Cholesterol LDL Cholesterol Direct HDL Cholesterol Urine pH Urine WBC (Auto) Urine Creatinine Urine Total Protein Fluid Total Protein Vancomycin Trough Rheumatoid Factor Complement C4 Miscellaneous Test Crossmatch 11/27/16 11/27/16 11/27/16 06:02 11:25 17:25 WBC 11.6 H RBC 2.75 L Hgb 7.6 L Hct 23.4 L MCV MCH MCHC RDW 16.5 H Plt Count Lymph % (Auto) [place] % (Auto) Lymph # [place] # Baso # Seg Neutrophils % Seg Neuts % (Manual) Lymphocytes % (Manual) Monocytes % (Manual) Eosinophils % (Manual) Basophils % (Manual) Nucleated RBC % Seg Neutrophils # Seg Neutrophils # Man Lymphocytes # (Manual) Monocytes # (Manual) Eosinophils # (Manual) Basophils # (Manual) PT INR Fibrinogen dRVVT Confirm Interp Factor V Activity POC ABG pH POC ABG pCO2 POC ABG pO2 ABG pO2 ABG HCO3 ABG Base Excess ABG Hemoglobin Oxyhemoglobin Sodium Potassium Chloride Carbon Dioxide BUN Creatinine Glucose POC Glucose 114 H 126 H Lactic Acid Calcium Phosphorus Magnesium Direct Bilirubin AST ALT Alkaline Phosphatase Lactate Dehydrogenase Troponin T C-Reactive Protein Total Protein Albumin Prealbumin Triglycerides Cholesterol LDL Cholesterol Direct HDL Cholesterol Urine pH Urine WBC (Auto) Urine Creatinine Urine Total Protein Fluid Total Protein Vancomycin Trough Rheumatoid Factor Complement C4 Miscellaneous Test Crossmatch 11/28/16 11/28/16 11/28/16 04:45 05:33 05:44 WBC RBC Hgb Hct MCV MCH MCHC RDW Plt Count Lymph % (Auto) [place] % (Auto) Lymph # [place] # Baso # Seg Neutrophils % Seg Neuts % (Manual) Lymphocytes % (Manual) Monocytes % (Manual) Eosinophils % (Manual) Basophils % (Manual) Nucleated RBC % Seg Neutrophils # Seg Neutrophils # Man Lymphocytes # (Manual) Monocytes # (Manual) Eosinophils # (Manual) Basophils # (Manual) PT INR Fibrinogen dRVVT Confirm Interp Factor V Activity POC ABG pH POC ABG pCO2 POC ABG pO2 ABG pO2 99.3 H ABG HCO3 ABG Base Excess ABG Hemoglobin 8.3 L Oxyhemoglobin Sodium Potassium Chloride Carbon Dioxide BUN 63 H Creatinine 2.4 H Glucose 102 H POC Glucose 108 H Lactic Acid Calcium Phosphorus 1.80 L Magnesium Direct Bilirubin AST ALT Alkaline Phosphatase Lactate Dehydrogenase Troponin T C-Reactive Protein Total Protein Albumin Prealbumin Triglycerides Cholesterol LDL Cholesterol Direct HDL Cholesterol Urine pH Urine WBC (Auto) Urine Creatinine Urine Total Protein Fluid Total Protein Vancomycin Trough Rheumatoid Factor Complement C4 Miscellaneous Test Crossmatch 11/28/16 11/28/16 11/28/16 12:31 16:09 23:46 WBC RBC Hgb Hct MCV MCH MCHC RDW Plt Count Lymph % (Auto) [place] % (Auto) Lymph # [place] # Baso # Seg Neutrophils % Seg Neuts % (Manual) Lymphocytes % (Manual) Monocytes % (Manual) Eosinophils % (Manual) Basophils % (Manual) Nucleated RBC % Seg Neutrophils # Seg Neutrophils # Man Lymphocytes # (Manual) Monocytes # (Manual) Eosinophils # (Manual) Basophils # (Manual) PT INR Fibrinogen dRVVT Confirm Interp Factor V Activity POC ABG pH POC ABG pCO2 POC ABG pO2 ABG pO2 ABG HCO3 ABG Base Excess ABG Hemoglobin Oxyhemoglobin Sodium Potassium Chloride Carbon Dioxide BUN Creatinine Glucose POC Glucose 126 H 111 H 119 H Lactic Acid Calcium Phosphorus Magnesium Direct Bilirubin AST ALT Alkaline Phosphatase Lactate Dehydrogenase Troponin T C-Reactive Protein Total Protein Albumin Prealbumin Triglycerides Cholesterol LDL Cholesterol Direct HDL Cholesterol Urine pH Urine WBC (Auto) Urine Creatinine Urine Total Protein Fluid Total Protein Vancomycin Trough Rheumatoid Factor Complement C4 Miscellaneous Test Crossmatch 11/29/16 11/29/16 11/29/16 03:33 04:52 05:10 WBC RBC Hgb Hct MCV MCH MCHC RDW Plt Count Lymph % (Auto) [place] % (Auto) Lymph # [place] # Baso # Seg Neutrophils % Seg Neuts % (Manual) Lymphocytes % (Manual) Monocytes % (Manual) Eosinophils % (Manual) Basophils % (Manual) Nucleated RBC % Seg Neutrophils # Seg Neutrophils # Man Lymphocytes # (Manual) Monocytes # (Manual) Eosinophils # (Manual) Basophils # (Manual) PT INR Fibrinogen dRVVT Confirm Interp Factor V Activity POC ABG pH POC ABG pCO2 POC ABG pO2 ABG pO2 ABG HCO3 ABG Base Excess ABG Hemoglobin 7.0 L Oxyhemoglobin 94.9 L Sodium Potassium Chloride Carbon Dioxide BUN 73 H Creatinine 2.7 H Glucose POC Glucose 108 H Lactic Acid Calcium Phosphorus Magnesium Direct Bilirubin AST ALT Alkaline Phosphatase Lactate Dehydrogenase Troponin T C-Reactive Protein Total Protein Albumin Prealbumin Triglycerides Cholesterol LDL Cholesterol Direct HDL Cholesterol Urine pH Urine WBC (Auto) Urine Creatinine Urine Total Protein Fluid Total Protein Vancomycin Trough Rheumatoid Factor Complement C4 Miscellaneous Test Crossmatch 11/29/16 11/29/16 11/29/16 12:16 18:05 23:46 WBC RBC Hgb Hct MCV MCH MCHC RDW Plt Count Lymph % (Auto) [place] % (Auto) Lymph # [place] # Baso # Seg Neutrophils % Seg Neuts % (Manual) Lymphocytes % (Manual) Monocytes % (Manual) Eosinophils % (Manual) Basophils % (Manual) Nucleated RBC % Seg Neutrophils # Seg Neutrophils # Man Lymphocytes # (Manual) Monocytes # (Manual) Eosinophils # (Manual) Basophils # (Manual) PT INR Fibrinogen dRVVT Confirm Interp Factor V Activity POC ABG pH POC ABG pCO2 POC ABG pO2 ABG pO2 ABG HCO3 ABG Base Excess ABG Hemoglobin Oxyhemoglobin Sodium Potassium Chloride Carbon Dioxide BUN Creatinine Glucose POC Glucose 133 H 146 H 141 H Lactic Acid Calcium Phosphorus Magnesium Direct Bilirubin AST ALT Alkaline Phosphatase Lactate Dehydrogenase Troponin T C-Reactive Protein Total Protein Albumin Prealbumin Triglycerides Cholesterol LDL Cholesterol Direct HDL Cholesterol Urine pH Urine WBC (Auto) Urine Creatinine Urine Total Protein Fluid Total Protein Vancomycin Trough Rheumatoid Factor Complement C4 Miscellaneous Test Crossmatch 11/30/16 11/30/16 11/30/16 04:17 04:17 04:32 WBC 12.0 H RBC 2.80 L Hgb 7.8 L Hct 23.6 L MCV MCH MCHC RDW 16.6 H Plt Count Lymph % (Auto) [place] % (Auto) 11.3 H Lymph # [place] # 1.4 H Baso # Seg Neutrophils % Seg Neuts % (Manual) Lymphocytes % (Manual) Monocytes % (Manual) Eosinophils % (Manual) Basophils % (Manual) Nucleated RBC % Seg Neutrophils # 8.2 H Seg Neutrophils # Man Lymphocytes # (Manual) Monocytes # (Manual) Eosinophils # (Manual) Basophils # (Manual) PT INR Fibrinogen dRVVT Confirm Interp Factor V Activity POC ABG pH POC ABG pCO2 POC ABG pO2 ABG pO2 ABG HCO3 ABG Base Excess ABG Hemoglobin Oxyhemoglobin Sodium 169 H* D Potassium 5.1 H Chloride 121.5 H Carbon Dioxide BUN 34 H Creatinine 1.3 H D Glucose 133 H POC Glucose 131 H Lactic Acid Calcium 10.3 H Phosphorus Magnesium Direct Bilirubin AST ALT Alkaline Phosphatase Lactate Dehydrogenase Troponin T C-Reactive Protein Total Protein Albumin Prealbumin Triglycerides Cholesterol LDL Cholesterol Direct HDL Cholesterol Urine pH Urine WBC (Auto) Urine Creatinine Urine Total Protein Fluid Total Protein Vancomycin Trough Rheumatoid Factor Complement C4 Miscellaneous Test Crossmatch 11/30/16 11/30/16 11/30/16 05:45 11:10 17:26 WBC RBC Hgb Hct MCV MCH MCHC RDW Plt Count Lymph % (Auto) [place] % (Auto) Lymph # [place] # Baso # Seg Neutrophils % Seg Neuts % (Manual) Lymphocytes % (Manual) Monocytes % (Manual) Eosinophils % (Manual) Basophils % (Manual) Nucleated RBC % Seg Neutrophils # Seg Neutrophils # Man Lymphocytes # (Manual) Monocytes # (Manual) Eosinophils # (Manual) Basophils # (Manual) PT INR Fibrinogen dRVVT Confirm Interp Factor V Activity POC ABG pH POC ABG pCO2 POC ABG pO2 ABG pO2 ABG HCO3 ABG Base Excess ABG Hemoglobin Oxyhemoglobin Sodium Potassium Chloride Carbon Dioxide BUN 45 H Creatinine 1.6 H Glucose 131 H POC Glucose 146 H 134 H Lactic Acid Calcium Phosphorus Magnesium Direct Bilirubin AST ALT Alkaline Phosphatase Lactate Dehydrogenase Troponin T C-Reactive Protein Total Protein Albumin Prealbumin Triglycerides Cholesterol LDL Cholesterol Direct HDL Cholesterol Urine pH Urine WBC (Auto) Urine Creatinine Urine Total Protein Fluid Total Protein Vancomycin Trough Rheumatoid Factor Complement C4 Miscellaneous Test Crossmatch 11/30/16 12/01/16 12/01/16 23:35 00:06 03:35 WBC RBC Hgb Hct MCV MCH MCHC RDW Plt Count Lymph % (Auto) [place] % (Auto) Lymph # [place] # Baso # Seg Neutrophils % Seg Neuts % (Manual) Lymphocytes % (Manual) Monocytes % (Manual) Eosinophils % (Manual) Basophils % (Manual) Nucleated RBC % Seg Neutrophils # Seg Neutrophils # Man Lymphocytes # (Manual) Monocytes # (Manual) Eosinophils # (Manual) Basophils # (Manual) PT INR Fibrinogen dRVVT Confirm Interp Factor V Activity POC ABG pH POC ABG pCO2 POC ABG pO2 ABG pO2 ABG HCO3 ABG Base Excess ABG Hemoglobin 6.9 L Oxyhemoglobin Sodium Potassium Chloride Carbon Dioxide BUN 58 H Creatinine 1.8 H Glucose 146 H POC Glucose 151 H Lactic Acid Calcium Phosphorus Magnesium Direct Bilirubin AST ALT Alkaline Phosphatase Lactate Dehydrogenase Troponin T C-Reactive Protein Total Protein Albumin Prealbumin Triglycerides Cholesterol LDL Cholesterol Direct HDL Cholesterol Urine pH Urine WBC (Auto) Urine Creatinine Urine Total Protein Fluid Total Protein Vancomycin Trough Rheumatoid Factor Complement C4 Miscellaneous Test Crossmatch 12/01/16 12/01/16 12/01/16 03:35 05:47 11:52 WBC 12.3 H RBC 2.82 L Hgb 7.8 L Hct 23.7 L MCV MCH MCHC RDW 16.7 H Plt Count Lymph % (Auto) [place] % (Auto) 9.8 H Lymph # [place] # 1.2 H Baso # Seg Neutrophils % Seg Neuts % (Manual) Lymphocytes % (Manual) Monocytes % (Manual) Eosinophils % (Manual) Basophils % (Manual) Nucleated RBC % Seg Neutrophils # 8.4 H Seg Neutrophils # Man Lymphocytes # (Manual) Monocytes # (Manual) Eosinophils # (Manual) Basophils # (Manual) PT INR Fibrinogen dRVVT Confirm Interp Factor V Activity POC ABG pH POC ABG pCO2 POC ABG pO2 ABG pO2 ABG HCO3 ABG Base Excess ABG Hemoglobin Oxyhemoglobin Sodium Potassium Chloride Carbon Dioxide BUN Creatinine Glucose POC Glucose 152 H 152 H Lactic Acid Calcium Phosphorus Magnesium Direct Bilirubin AST ALT Alkaline Phosphatase Lactate Dehydrogenase Troponin T C-Reactive Protein Total Protein Albumin Prealbumin Triglycerides Cholesterol LDL Cholesterol Direct HDL Cholesterol Urine pH Urine WBC (Auto) Urine Creatinine Urine Total Protein Fluid Total Protein Vancomycin Trough Rheumatoid Factor Complement C4 Miscellaneous Test Crossmatch 12/01/16 12/01/16 12/02/16 17:40 23:41 05:00 WBC RBC Hgb Hct MCV MCH MCHC RDW Plt Count Lymph % (Auto) [place] % (Auto) Lymph # [place] # Baso # Seg Neutrophils % Seg Neuts % (Manual) Lymphocytes % (Manual) Monocytes % (Manual) Eosinophils % (Manual) Basophils % (Manual) Nucleated RBC % Seg Neutrophils # Seg Neutrophils # Man Lymphocytes # (Manual) Monocytes # (Manual) Eosinophils # (Manual) Basophils # (Manual) PT INR Fibrinogen dRVVT Confirm Interp Factor V Activity POC ABG pH POC ABG pCO2 POC ABG pO2 ABG pO2 ABG HCO3 ABG Base Excess ABG Hemoglobin Oxyhemoglobin Sodium Potassium Chloride Carbon Dioxide BUN 45 H Creatinine Glucose 115 H POC Glucose 140 H 144 H Lactic Acid Calcium Phosphorus Magnesium Direct Bilirubin AST ALT Alkaline Phosphatase Lactate Dehydrogenase Troponin T C-Reactive Protein Total Protein Albumin Prealbumin Triglycerides Cholesterol LDL Cholesterol Direct HDL Cholesterol Urine pH Urine WBC (Auto) Urine Creatinine Urine Total Protein Fluid Total Protein Vancomycin Trough Rheumatoid Factor Complement C4 Miscellaneous Test Crossmatch 12/02/16 12/02/16 12/02/16 05:31 11:20 17:38 WBC RBC Hgb Hct MCV MCH MCHC RDW Plt Count Lymph % (Auto) [place] % (Auto) Lymph # [place] # Baso # Seg Neutrophils % Seg Neuts % (Manual) Lymphocytes % (Manual) Monocytes % (Manual) Eosinophils % (Manual) Basophils % (Manual) Nucleated RBC % Seg Neutrophils # Seg Neutrophils # Man Lymphocytes # (Manual) Monocytes # (Manual) Eosinophils # (Manual) Basophils # (Manual) PT INR Fibrinogen dRVVT Confirm Interp Factor V Activity POC ABG pH POC ABG pCO2 POC ABG pO2 ABG pO2 ABG HCO3 ABG Base Excess ABG Hemoglobin Oxyhemoglobin Sodium Potassium Chloride Carbon Dioxide BUN Creatinine Glucose POC Glucose 136 H 177 H 139 H Lactic Acid Calcium Phosphorus Magnesium Direct Bilirubin AST ALT Alkaline Phosphatase Lactate Dehydrogenase Troponin T C-Reactive Protein Total Protein Albumin Prealbumin Triglycerides Cholesterol LDL Cholesterol Direct HDL Cholesterol Urine pH Urine WBC (Auto) Urine Creatinine Urine Total Protein Fluid Total Protein Vancomycin Trough Rheumatoid Factor Complement C4 Miscellaneous Test Crossmatch 12/02/16 12/03/16 12/03/16 23:43 04:00 04:00 WBC 20.4 H RBC 2.74 L Hgb 7.4 L Hct 23.6 L MCV MCH 27 L MCHC RDW 17.1 H Plt Count Lymph % (Auto) [place] % (Auto) Lymph # [place] # Baso # Seg Neutrophils % Seg Neuts % (Manual) 31.0 L Lymphocytes % (Manual) Monocytes % (Manual) Eosinophils % (Manual) Basophils % (Manual) Nucleated RBC % Seg Neutrophils # Seg Neutrophils # Man Lymphocytes # (Manual) Monocytes # (Manual) Eosinophils # (Manual) Basophils # (Manual) PT INR Fibrinogen dRVVT Confirm Interp Factor V Activity POC ABG pH POC ABG pCO2 POC ABG pO2 ABG pO2 ABG HCO3 ABG Base Excess ABG Hemoglobin Oxyhemoglobin Sodium Potassium Chloride Carbon Dioxide BUN 61 H Creatinine 1.6 H Glucose 119 H POC Glucose 158 H Lactic Acid Calcium Phosphorus Magnesium Direct Bilirubin AST ALT Alkaline Phosphatase Lactate Dehydrogenase Troponin T C-Reactive Protein Total Protein Albumin Prealbumin Triglycerides Cholesterol LDL Cholesterol Direct HDL Cholesterol Urine pH Urine WBC (Auto) Urine Creatinine Urine Total Protein Fluid Total Protein Vancomycin Trough Rheumatoid Factor Complement C4 Miscellaneous Test Crossmatch 12/03/16 12/03/16 12/03/16 05:02 12:11 18:16 WBC RBC Hgb Hct MCV MCH MCHC RDW Plt Count Lymph % (Auto) [place] % (Auto) Lymph # [place] # Baso # Seg Neutrophils % Seg Neuts % (Manual) Lymphocytes % (Manual) Monocytes % (Manual) Eosinophils % (Manual) Basophils % (Manual) Nucleated RBC % Seg Neutrophils # Seg Neutrophils # Man Lymphocytes # (Manual) Monocytes # (Manual) Eosinophils # (Manual) Basophils # (Manual) PT INR Fibrinogen dRVVT Confirm Interp Factor V Activity POC ABG pH POC ABG pCO2 POC ABG pO2 ABG pO2 ABG HCO3 ABG Base Excess ABG Hemoglobin Oxyhemoglobin Sodium Potassium Chloride Carbon Dioxide BUN Creatinine Glucose POC Glucose 146 H 157 H 124 H Lactic Acid Calcium Phosphorus Magnesium Direct Bilirubin AST ALT Alkaline Phosphatase Lactate Dehydrogenase Troponin T C-Reactive Protein Total Protein Albumin Prealbumin Triglycerides Cholesterol LDL Cholesterol Direct HDL Cholesterol Urine pH Urine WBC (Auto) Urine Creatinine Urine Total Protein Fluid Total Protein Vancomycin Trough Rheumatoid Factor Complement C4 Miscellaneous Test Crossmatch 12/03/16 12/04/16 12/04/16 23:41 04:00 04:45 WBC RBC Hgb Hct MCV MCH MCHC RDW Plt Count Lymph % (Auto) [place] % (Auto) Lymph # [place] # Baso # Seg Neutrophils % Seg Neuts % (Manual) Lymphocytes % (Manual) Monocytes % (Manual) Eosinophils % (Manual) Basophils % (Manual) Nucleated RBC % Seg Neutrophils # Seg Neutrophils # Man Lymphocytes # (Manual) Monocytes # (Manual) Eosinophils # (Manual) Basophils # (Manual) PT INR Fibrinogen dRVVT Confirm Interp Factor V Activity POC ABG pH POC ABG pCO2 POC ABG pO2 ABG pO2 ABG HCO3 ABG Base Excess ABG Hemoglobin Oxyhemoglobin Sodium Potassium Chloride Carbon Dioxide BUN 76 H Creatinine 1.6 H Glucose POC Glucose 130 H 136 H Lactic Acid Calcium Phosphorus Magnesium Direct Bilirubin AST ALT Alkaline Phosphatase 155 H Lactate Dehydrogenase Troponin T C-Reactive Protein Total Protein 5.5 L Albumin 1.5 L Prealbumin Triglycerides Cholesterol LDL Cholesterol Direct HDL Cholesterol Urine pH Urine WBC (Auto) Urine Creatinine Urine Total Protein Fluid Total Protein Vancomycin Trough Rheumatoid Factor Complement C4 Miscellaneous Test Crossmatch 12/04/16 12/04/16 12/05/16 12:08 17:23 00:10 WBC RBC Hgb Hct MCV MCH MCHC RDW Plt Count Lymph % (Auto) [place] % (Auto) Lymph # [place] # Baso # Seg Neutrophils % Seg Neuts % (Manual) Lymphocytes % (Manual) Monocytes % (Manual) Eosinophils % (Manual) Basophils % (Manual) Nucleated RBC % Seg Neutrophils # Seg Neutrophils # Man Lymphocytes # (Manual) Monocytes # (Manual) Eosinophils # (Manual) Basophils # (Manual) PT INR Fibrinogen dRVVT Confirm Interp Factor V Activity POC ABG pH POC ABG pCO2 POC ABG pO2 ABG pO2 ABG HCO3 ABG Base Excess ABG Hemoglobin Oxyhemoglobin Sodium Potassium Chloride Carbon Dioxide BUN Creatinine Glucose POC Glucose 114 H 129 H 124 H Lactic Acid Calcium Phosphorus Magnesium Direct Bilirubin AST ALT Alkaline Phosphatase Lactate Dehydrogenase Troponin T C-Reactive Protein Total Protein Albumin Prealbumin Triglycerides Cholesterol LDL Cholesterol Direct HDL Cholesterol Urine pH Urine WBC (Auto) Urine Creatinine Urine Total Protein Fluid Total Protein Vancomycin Trough Rheumatoid Factor Complement C4 Miscellaneous Test Crossmatch 12/05/16 12/05/16 12/05/16 05:00 05:00 05:18 WBC RBC Hgb Hct MCV MCH MCHC RDW Plt Count Lymph % (Auto) [place] % (Auto) Lymph # [place] # Baso # Seg Neutrophils % Seg Neuts % (Manual) Lymphocytes % (Manual) Monocytes % (Manual) Eosinophils % (Manual) Basophils % (Manual) Nucleated RBC % Seg Neutrophils # Seg Neutrophils # Man Lymphocytes # (Manual) Monocytes # (Manual) Eosinophils # (Manual) Basophils # (Manual) PT INR Fibrinogen dRVVT Confirm Interp Factor V Activity POC ABG pH POC ABG pCO2 POC ABG pO2 ABG pO2 ABG HCO3 ABG Base Excess ABG Hemoglobin Oxyhemoglobin Sodium Potassium Chloride Carbon Dioxide 21 L BUN 85 H Creatinine 1.9 H Glucose 131 H POC Glucose 154 H Lactic Acid Calcium Phosphorus Magnesium Direct Bilirubin AST ALT Alkaline Phosphatase Lactate Dehydrogenase Troponin T C-Reactive Protein 19.30 H Total Protein Albumin Prealbumin Triglycerides Cholesterol LDL Cholesterol Direct HDL Cholesterol Urine pH Urine WBC (Auto) Urine Creatinine Urine Total Protein Fluid Total Protein Vancomycin Trough Rheumatoid Factor Complement C4 Miscellaneous Test Crossmatch 12/05/16 12/05/16 12/05/16 11:43 17:46 23:25 WBC RBC Hgb Hct MCV MCH MCHC RDW Plt Count Lymph % (Auto) [place] % (Auto) Lymph # [place] # Baso # Seg Neutrophils % Seg Neuts % (Manual) Lymphocytes % (Manual) Monocytes % (Manual) Eosinophils % (Manual) Basophils % (Manual) Nucleated RBC % Seg Neutrophils # Seg Neutrophils # Man Lymphocytes # (Manual) Monocytes # (Manual) Eosinophils # (Manual) Basophils # (Manual) PT INR Fibrinogen dRVVT Confirm Interp Factor V Activity POC ABG pH POC ABG pCO2 POC ABG pO2 ABG pO2 ABG HCO3 ABG Base Excess ABG Hemoglobin Oxyhemoglobin Sodium Potassium Chloride Carbon Dioxide BUN Creatinine Glucose POC Glucose 117 H 113 H 111 H Lactic Acid Calcium Phosphorus Magnesium Direct Bilirubin AST ALT Alkaline Phosphatase Lactate Dehydrogenase Troponin T C-Reactive Protein Total Protein Albumin Prealbumin Triglycerides Cholesterol LDL Cholesterol Direct HDL Cholesterol Urine pH Urine WBC (Auto) Urine Creatinine Urine Total Protein Fluid Total Protein Vancomycin Trough Rheumatoid Factor Complement C4 Miscellaneous Test Crossmatch 12/05/16 12/06/16 12/06/16 Unknown 04:58 06:00 WBC RBC Hgb Hct MCV MCH MCHC RDW Plt Count Lymph % (Auto) [place] % (Auto) Lymph # [place] # Baso # Seg Neutrophils % Seg Neuts % (Manual) Lymphocytes % (Manual) Monocytes % (Manual) Eosinophils % (Manual) Basophils % (Manual) Nucleated RBC % Seg Neutrophils # Seg Neutrophils # Man Lymphocytes # (Manual) Monocytes # (Manual) Eosinophils # (Manual) Basophils # (Manual) PT INR Fibrinogen dRVVT Confirm Interp Factor V Activity POC ABG pH POC ABG pCO2 POC ABG pO2 ABG pO2 75.2 L ABG HCO3 ABG Base Excess -3.4 L ABG Hemoglobin 7.4 L Oxyhemoglobin 94.5 L Sodium Potassium Chloride Carbon Dioxide 20 L BUN 99 H Creatinine 2.1 H Glucose 126 H POC Glucose 145 H Lactic Acid Calcium Phosphorus 4.80 H Magnesium Direct Bilirubin AST ALT Alkaline Phosphatase Lactate Dehydrogenase Troponin T C-Reactive Protein Total Protein Albumin Prealbumin Triglycerides Cholesterol LDL Cholesterol Direct HDL Cholesterol Urine pH Urine WBC (Auto) Urine Creatinine Urine Total Protein Fluid Total Protein Vancomycin Trough Rheumatoid Factor Complement C4 Miscellaneous Test Crossmatch 12/06/16 12/06/16 12/06/16 06:46 11:54 17:55 WBC RBC Hgb 8.3 L Hct 26.4 L MCV MCH MCHC RDW Plt Count Lymph % (Auto) [place] % (Auto) Lymph # [place] # Baso # Seg Neutrophils % Seg Neuts % (Manual) Lymphocytes % (Manual) Monocytes % (Manual) Eosinophils % (Manual) Basophils % (Manual) Nucleated RBC % Seg Neutrophils # Seg Neutrophils # Man Lymphocytes # (Manual) Monocytes # (Manual) Eosinophils # (Manual) Basophils # (Manual) PT INR Fibrinogen dRVVT Confirm Interp Factor V Activity POC ABG pH POC ABG pCO2 POC ABG pO2 ABG pO2 ABG HCO3 ABG Base Excess ABG Hemoglobin Oxyhemoglobin Sodium Potassium Chloride Carbon Dioxide BUN Creatinine Glucose POC Glucose 126 H 157 H Lactic Acid Calcium Phosphorus Magnesium Direct Bilirubin AST ALT Alkaline Phosphatase Lactate Dehydrogenase Troponin T C-Reactive Protein Total Protein Albumin Prealbumin Triglycerides Cholesterol LDL Cholesterol Direct HDL Cholesterol Urine pH Urine WBC (Auto) Urine Creatinine Urine Total Protein Fluid Total Protein Vancomycin Trough Rheumatoid Factor Complement C4 Miscellaneous Test Crossmatch 12/06/16 12/07/16 12/07/16 23:59 05:34 06:30 WBC RBC Hgb Hct MCV MCH MCHC RDW Plt Count Lymph % (Auto) [place] % (Auto) Lymph # [place] # Baso # Seg Neutrophils % Seg Neuts % (Manual) Lymphocytes % (Manual) Monocytes % (Manual) Eosinophils % (Manual) Basophils % (Manual) Nucleated RBC % Seg Neutrophils # Seg Neutrophils # Man Lymphocytes # (Manual) Monocytes # (Manual) Eosinophils # (Manual) Basophils # (Manual) PT INR Fibrinogen dRVVT Confirm Interp Factor V Activity POC ABG pH POC ABG pCO2 POC ABG pO2 ABG pO2 ABG HCO3 ABG Base Excess ABG Hemoglobin Oxyhemoglobin Sodium Potassium Chloride Carbon Dioxide BUN 67 H Creatinine 1.4 H Glucose 126 H POC Glucose 129 H 129 H Lactic Acid Calcium Phosphorus Magnesium Direct Bilirubin AST ALT Alkaline Phosphatase Lactate Dehydrogenase Troponin T C-Reactive Protein Total Protein Albumin Prealbumin Triglycerides Cholesterol LDL Cholesterol Direct HDL Cholesterol Urine pH Urine WBC (Auto) Urine Creatinine Urine Total Protein Fluid Total Protein Vancomycin Trough Rheumatoid Factor Complement C4 Miscellaneous Test Crossmatch 12/07/16 12/07/16 12/07/16 06:30 08:00 09:45 WBC 18.8 H RBC 2.52 L Hgb 6.9 L 6.8 L Hct 21.2 L 21.1 L MCV MCH 27 L MCHC RDW 18.0 H Plt Count Lymph % (Auto) [place] % (Auto) 9.9 H Lymph # [place] # 1.9 H Baso # Seg Neutrophils % 71.8 H Seg Neuts % (Manual) Lymphocytes % (Manual) Monocytes % (Manual) Eosinophils % (Manual) Basophils % (Manual) Nucleated RBC % Seg Neutrophils # 13.5 H Seg Neutrophils # Man Lymphocytes # (Manual) Monocytes # (Manual) Eosinophils # (Manual) Basophils # (Manual) PT INR Fibrinogen dRVVT Confirm Interp Factor V Activity POC ABG pH POC ABG pCO2 POC ABG pO2 ABG pO2 ABG HCO3 ABG Base Excess ABG Hemoglobin Oxyhemoglobin Sodium Potassium Chloride Carbon Dioxide BUN Creatinine Glucose POC Glucose Lactic Acid Calcium Phosphorus Magnesium Direct Bilirubin AST ALT Alkaline Phosphatase Lactate Dehydrogenase Troponin T C-Reactive Protein Total Protein Albumin Prealbumin Triglycerides Cholesterol LDL Cholesterol Direct HDL Cholesterol Urine pH Urine WBC (Auto) Urine Creatinine Urine Total Protein Fluid Total Protein Vancomycin Trough Rheumatoid Factor Complement C4 Miscellaneous Test Crossmatch See Detail 12/07/16 12/07/16 12/07/16 11:44 18:19 23:59 WBC RBC Hgb Hct MCV MCH MCHC RDW Plt Count Lymph % (Auto) [place] % (Auto) Lymph # [place] # Baso # Seg Neutrophils % Seg Neuts % (Manual) Lymphocytes % (Manual) Monocytes % (Manual) Eosinophils % (Manual) Basophils % (Manual) Nucleated RBC % Seg Neutrophils # Seg Neutrophils # Man Lymphocytes # (Manual) Monocytes # (Manual) Eosinophils # (Manual) Basophils # (Manual) PT INR Fibrinogen dRVVT Confirm Interp Factor V Activity POC ABG pH POC ABG pCO2 POC ABG pO2 ABG pO2 ABG HCO3 ABG Base Excess ABG Hemoglobin Oxyhemoglobin Sodium Potassium Chloride Carbon Dioxide BUN Creatinine Glucose POC Glucose 137 H 138 H 133 H Lactic Acid Calcium Phosphorus Magnesium Direct Bilirubin AST ALT Alkaline Phosphatase Lactate Dehydrogenase Troponin T C-Reactive Protein Total Protein Albumin Prealbumin Triglycerides Cholesterol LDL Cholesterol Direct HDL Cholesterol Urine pH Urine WBC (Auto) Urine Creatinine Urine Total Protein Fluid Total Protein Vancomycin Trough Rheumatoid Factor Complement C4 Miscellaneous Test Crossmatch 12/08/16 12/08/16 12/08/16 05:25 05:30 05:30 WBC 23.8 H RBC 2.88 L Hgb 8.1 L Hct 24.3 L MCV MCH MCHC RDW 16.7 H Plt Count Lymph % (Auto) [place] % (Auto) Lymph # [place] # Baso # Seg Neutrophils % Seg Neuts % (Manual) 76.0 H Lymphocytes % (Manual) 9.0 L Monocytes % (Manual) 9.0 H Eosinophils % (Manual) Basophils % (Manual) Nucleated RBC % Seg Neutrophils # Seg Neutrophils # Man 18.1 H Lymphocytes # (Manual) Monocytes # (Manual) 2.1 H Eosinophils # (Manual) Basophils # (Manual) PT INR Fibrinogen dRVVT Confirm Interp Factor V Activity POC ABG pH POC ABG pCO2 POC ABG pO2 ABG pO2 ABG HCO3 ABG Base Excess ABG Hemoglobin Oxyhemoglobin Sodium Potassium Chloride Carbon Dioxide 21 L BUN 76 H Creatinine 1.6 H Glucose 133 H POC Glucose 177 H Lactic Acid Calcium Phosphorus Magnesium Direct Bilirubin AST ALT Alkaline Phosphatase Lactate Dehydrogenase Troponin T C-Reactive Protein Total Protein Albumin Prealbumin Triglycerides Cholesterol LDL Cholesterol Direct HDL Cholesterol Urine pH Urine WBC (Auto) Urine Creatinine Urine Total Protein Fluid Total Protein Vancomycin Trough Rheumatoid Factor Complement C4 Miscellaneous Test Crossmatch 12/08/16 12/08/16 12/09/16 11:45 18:00 00:00 WBC RBC Hgb Hct MCV MCH MCHC RDW Plt Count Lymph % (Auto) [place] % (Auto) Lymph # [place] # Baso # Seg Neutrophils % Seg Neuts % (Manual) Lymphocytes % (Manual) Monocytes % (Manual) Eosinophils % (Manual) Basophils % (Manual) Nucleated RBC % Seg Neutrophils # Seg Neutrophils # Man Lymphocytes # (Manual) Monocytes # (Manual) Eosinophils # (Manual) Basophils # (Manual) PT INR Fibrinogen dRVVT Confirm Interp Factor V Activity POC ABG pH POC ABG pCO2 POC ABG pO2 ABG pO2 ABG HCO3 ABG Base Excess ABG Hemoglobin Oxyhemoglobin Sodium Potassium Chloride Carbon Dioxide BUN Creatinine Glucose POC Glucose 163 H 123 H 137 H Lactic Acid Calcium Phosphorus Magnesium Direct Bilirubin AST ALT Alkaline Phosphatase Lactate Dehydrogenase Troponin T C-Reactive Protein Total Protein Albumin Prealbumin Triglycerides Cholesterol LDL Cholesterol Direct HDL Cholesterol Urine pH Urine WBC (Auto) Urine Creatinine Urine Total Protein Fluid Total Protein Vancomycin Trough Rheumatoid Factor Complement C4 Miscellaneous Test Crossmatch 12/09/16 12/09/16 12/09/16 05:34 06:00 06:00 WBC 15.5 H RBC 2.87 L Hgb 8.0 L Hct 24.2 L MCV MCH MCHC RDW 17.2 H Plt Count Lymph % (Auto) [place] % (Auto) 11.6 H Lymph # [place] # 1.8 H Baso # Seg Neutrophils % 70.8 H Seg Neuts % (Manual) Lymphocytes % (Manual) Monocytes % (Manual) Eosinophils % (Manual) Basophils % (Manual) Nucleated RBC % Seg Neutrophils # 11.0 H Seg Neutrophils # Man Lymphocytes # (Manual) Monocytes # (Manual) Eosinophils # (Manual) Basophils # (Manual) PT INR Fibrinogen dRVVT Confirm Interp Factor V Activity POC ABG pH POC ABG pCO2 POC ABG pO2 ABG pO2 ABG HCO3 ABG Base Excess ABG Hemoglobin Oxyhemoglobin Sodium Potassium Chloride Carbon Dioxide BUN 51 H Creatinine Glucose 117 H POC Glucose 136 H Lactic Acid Calcium Phosphorus Magnesium Direct Bilirubin AST ALT Alkaline Phosphatase Lactate Dehydrogenase Troponin T C-Reactive Protein Total Protein Albumin Prealbumin Triglycerides Cholesterol LDL Cholesterol Direct HDL Cholesterol Urine pH Urine WBC (Auto) Urine Creatinine Urine Total Protein Fluid Total Protein Vancomycin Trough Rheumatoid Factor Complement C4 Miscellaneous Test Crossmatch 12/09/16 12/09/16 12/09/16 12:29 17:52 23:10 WBC RBC Hgb Hct MCV MCH MCHC RDW Plt Count Lymph % (Auto) [place] % (Auto) Lymph # [place] # Baso # Seg Neutrophils % Seg Neuts % (Manual) Lymphocytes % (Manual) Monocytes % (Manual) Eosinophils % (Manual) Basophils % (Manual) Nucleated RBC % Seg Neutrophils # Seg Neutrophils # Man Lymphocytes # (Manual) Monocytes # (Manual) Eosinophils # (Manual) Basophils # (Manual) PT INR Fibrinogen dRVVT Confirm Interp Factor V Activity POC ABG pH POC ABG pCO2 POC ABG pO2 ABG pO2 ABG HCO3 ABG Base Excess ABG Hemoglobin Oxyhemoglobin Sodium Potassium Chloride Carbon Dioxide BUN Creatinine Glucose POC Glucose 139 H 140 H 129 H Lactic Acid Calcium Phosphorus Magnesium Direct Bilirubin AST ALT Alkaline Phosphatase Lactate Dehydrogenase Troponin T C-Reactive Protein Total Protein Albumin Prealbumin Triglycerides Cholesterol LDL Cholesterol Direct HDL Cholesterol Urine pH Urine WBC (Auto) Urine Creatinine Urine Total Protein Fluid Total Protein Vancomycin Trough Rheumatoid Factor Complement C4 Miscellaneous Test Crossmatch 12/10/16 12/10/16 12/10/16 05:00 05:00 06:54 WBC 15.7 H RBC 2.87 L Hgb 8.2 L Hct 24.4 L MCV MCH MCHC RDW 17.2 H Plt Count Lymph % (Auto) [place] % (Auto) 8.3 H Lymph # [place] # 1.3 H Baso # Seg Neutrophils % 72.8 H Seg Neuts % (Manual) Lymphocytes % (Manual) Monocytes % (Manual) Eosinophils % (Manual) Basophils % (Manual) Nucleated RBC % Seg Neutrophils # 11.4 H Seg Neutrophils # Man Lymphocytes # (Manual) Monocytes # (Manual) Eosinophils # (Manual) Basophils # (Manual) PT INR Fibrinogen dRVVT Confirm Interp Factor V Activity POC ABG pH POC ABG pCO2 POC ABG pO2 ABG pO2 ABG HCO3 ABG Base Excess ABG Hemoglobin Oxyhemoglobin Sodium Potassium Chloride Carbon Dioxide BUN 64 H Creatinine 1.4 H Glucose 134 H POC Glucose 154 H Lactic Acid Calcium Phosphorus Magnesium Direct Bilirubin AST ALT Alkaline Phosphatase Lactate Dehydrogenase Troponin T C-Reactive Protein Total Protein Albumin Prealbumin Triglycerides Cholesterol LDL Cholesterol Direct HDL Cholesterol Urine pH Urine WBC (Auto) Urine Creatinine Urine Total Protein Fluid Total Protein Vancomycin Trough Rheumatoid Factor Complement C4 Miscellaneous Test Crossmatch 12/10/16 12/10/16 12/10/16 11:58 17:29 23:52 WBC RBC Hgb Hct MCV MCH MCHC RDW Plt Count Lymph % (Auto) [place] % (Auto) Lymph # [place] # Baso # Seg Neutrophils % Seg Neuts % (Manual) Lymphocytes % (Manual) Monocytes % (Manual) Eosinophils % (Manual) Basophils % (Manual) Nucleated RBC % Seg Neutrophils # Seg Neutrophils # Man Lymphocytes # (Manual) Monocytes # (Manual) Eosinophils # (Manual) Basophils # (Manual) PT INR Fibrinogen dRVVT Confirm Interp Factor V Activity POC ABG pH POC ABG pCO2 POC ABG pO2 ABG pO2 ABG HCO3 ABG Base Excess ABG Hemoglobin Oxyhemoglobin Sodium Potassium Chloride Carbon Dioxide BUN Creatinine Glucose POC Glucose 144 H 163 H 125 H Lactic Acid Calcium Phosphorus Magnesium Direct Bilirubin AST ALT Alkaline Phosphatase Lactate Dehydrogenase Troponin T C-Reactive Protein Total Protein Albumin Prealbumin Triglycerides Cholesterol LDL Cholesterol Direct HDL Cholesterol Urine pH Urine WBC (Auto) Urine Creatinine Urine Total Protein Fluid Total Protein Vancomycin Trough Rheumatoid Factor Complement C4 Miscellaneous Test Crossmatch 12/11/16 12/11/16 12/11/16 05:38 06:30 06:30 WBC 14.4 H RBC 2.76 L Hgb 7.7 L Hct 23.4 L MCV MCH MCHC RDW 17.2 H Plt Count Lymph % (Auto) [place] % (Auto) 8.8 H Lymph # [place] # 1.3 H Baso # Seg Neutrophils % 72.5 H Seg Neuts % (Manual) Lymphocytes % (Manual) Monocytes % (Manual) Eosinophils % (Manual) Basophils % (Manual) Nucleated RBC % Seg Neutrophils # 10.5 H Seg Neutrophils # Man Lymphocytes # (Manual) Monocytes # (Manual) Eosinophils # (Manual) Basophils # (Manual) PT INR Fibrinogen dRVVT Confirm Interp Factor V Activity POC ABG pH POC ABG pCO2 POC ABG pO2 ABG pO2 ABG HCO3 ABG Base Excess ABG Hemoglobin Oxyhemoglobin Sodium Potassium Chloride Carbon Dioxide BUN 43 H Creatinine Glucose 124 H POC Glucose 141 H Lactic Acid Calcium 8.3 L Phosphorus Magnesium 1.60 L Direct Bilirubin AST ALT Alkaline Phosphatase Lactate Dehydrogenase Troponin T C-Reactive Protein Total Protein Albumin Prealbumin Triglycerides Cholesterol LDL Cholesterol Direct HDL Cholesterol Urine pH Urine WBC (Auto) Urine Creatinine Urine Total Protein Fluid Total Protein Vancomycin Trough Rheumatoid Factor Complement C4 Miscellaneous Test Crossmatch 12/11/16 12/11/16 12/11/16 11:15 17:59 23:48 WBC RBC Hgb Hct MCV MCH MCHC RDW Plt Count Lymph % (Auto) [place] % (Auto) Lymph # [place] # Baso # Seg Neutrophils % Seg Neuts % (Manual) Lymphocytes % (Manual) Monocytes % (Manual) Eosinophils % (Manual) Basophils % (Manual) Nucleated RBC % Seg Neutrophils # Seg Neutrophils # Man Lymphocytes # (Manual) Monocytes # (Manual) Eosinophils # (Manual) Basophils # (Manual) PT INR Fibrinogen dRVVT Confirm Interp Factor V Activity POC ABG pH POC ABG pCO2 POC ABG pO2 ABG pO2 ABG HCO3 ABG Base Excess ABG Hemoglobin Oxyhemoglobin Sodium Potassium Chloride Carbon Dioxide BUN Creatinine Glucose POC Glucose 188 H 106 H 119 H Lactic Acid Calcium Phosphorus Magnesium Direct Bilirubin AST ALT Alkaline Phosphatase Lactate Dehydrogenase Troponin T C-Reactive Protein Total Protein Albumin Prealbumin Triglycerides Cholesterol LDL Cholesterol Direct HDL Cholesterol Urine pH Urine WBC (Auto) Urine Creatinine Urine Total Protein Fluid Total Protein Vancomycin Trough Rheumatoid Factor Complement C4 Miscellaneous Test Crossmatch 12/12/16 12/12/16 12/12/16 05:00 06:01 12:20 WBC 16.7 H RBC 2.87 L Hgb 8.0 L Hct 24.2 L MCV MCH MCHC RDW 17.6 H Plt Count Lymph % (Auto) [place] % (Auto) Lymph # [place] # 1.2 H Baso # Seg Neutrophils % 75.3 H Seg Neuts % (Manual) Lymphocytes % (Manual) Monocytes % (Manual) Eosinophils % (Manual) Basophils % (Manual) Nucleated RBC % Seg Neutrophils # 12.6 H Seg Neutrophils # Man Lymphocytes # (Manual) Monocytes # (Manual) Eosinophils # (Manual) Basophils # (Manual) PT INR Fibrinogen dRVVT Confirm Interp Factor V Activity POC ABG pH POC ABG pCO2 POC ABG pO2 ABG pO2 ABG HCO3 ABG Base Excess ABG Hemoglobin Oxyhemoglobin Sodium Potassium Chloride Carbon Dioxide BUN Creatinine Glucose POC Glucose 134 H 149 H Lactic Acid Calcium Phosphorus Magnesium Direct Bilirubin AST ALT Alkaline Phosphatase Lactate Dehydrogenase Troponin T C-Reactive Protein Total Protein Albumin Prealbumin Triglycerides Cholesterol LDL Cholesterol Direct HDL Cholesterol Urine pH Urine WBC (Auto) Urine Creatinine Urine Total Protein Fluid Total Protein Vancomycin Trough Rheumatoid Factor Complement C4 Miscellaneous Test Crossmatch 12/12/16 12/12/16 12/12/16 17:38 23:01 Unknown WBC RBC Hgb Hct MCV MCH MCHC RDW Plt Count Lymph % (Auto) [place] % (Auto) Lymph # [place] # Baso # Seg Neutrophils % Seg Neuts % (Manual) Lymphocytes % (Manual) Monocytes % (Manual) Eosinophils % (Manual) Basophils % (Manual) Nucleated RBC % Seg Neutrophils # Seg Neutrophils # Man Lymphocytes # (Manual) Monocytes # (Manual) Eosinophils # (Manual) Basophils # (Manual) PT INR Fibrinogen dRVVT Confirm Interp Factor V Activity POC ABG pH POC ABG pCO2 POC ABG pO2 ABG pO2 ABG HCO3 ABG Base Excess ABG Hemoglobin Oxyhemoglobin Sodium Potassium Chloride Carbon Dioxide BUN 60 H Creatinine 1.3 H Glucose 126 H POC Glucose 127 H 144 H Lactic Acid Calcium Phosphorus Magnesium Direct Bilirubin AST ALT Alkaline Phosphatase Lactate Dehydrogenase Troponin T C-Reactive Protein Total Protein Albumin Prealbumin Triglycerides Cholesterol LDL Cholesterol Direct HDL Cholesterol Urine pH Urine WBC (Auto) Urine Creatinine Urine Total Protein Fluid Total Protein Vancomycin Trough Rheumatoid Factor Complement C4 Miscellaneous Test Crossmatch 12/13/16 12/13/16 12/13/16 04:00 04:00 05:19 WBC 18.7 H RBC 2.89 L Hgb 8.3 L Hct 24.6 L MCV MCH MCHC RDW 17.5 H Plt Count Lymph % (Auto) [place] % (Auto) Lymph # [place] # 1.3 H Baso # Seg Neutrophils % 71.5 H Seg Neuts % (Manual) Lymphocytes % (Manual) Monocytes % (Manual) Eosinophils % (Manual) Basophils % (Manual) Nucleated RBC % Seg Neutrophils # 13.4 H Seg Neutrophils # Man Lymphocytes # (Manual) Monocytes # (Manual) Eosinophils # (Manual) Basophils # (Manual) PT INR Fibrinogen dRVVT Confirm Interp Factor V Activity POC ABG pH POC ABG pCO2 POC ABG pO2 ABG pO2 ABG HCO3 ABG Base Excess ABG Hemoglobin Oxyhemoglobin Sodium Potassium Chloride Carbon Dioxide BUN 73 H Creatinine 1.5 H Glucose 141 H POC Glucose 171 H Lactic Acid Calcium Phosphorus Magnesium Direct Bilirubin AST ALT Alkaline Phosphatase Lactate Dehydrogenase Troponin T C-Reactive Protein Total Protein Albumin Prealbumin Triglycerides Cholesterol LDL Cholesterol Direct HDL Cholesterol Urine pH Urine WBC (Auto) Urine Creatinine Urine Total Protein Fluid Total Protein Vancomycin Trough Rheumatoid Factor Complement C4 Miscellaneous Test Crossmatch 12/13/16 12/13/16 12/14/16 12:28 16:48 00:01 WBC RBC Hgb Hct MCV MCH MCHC RDW Plt Count Lymph % (Auto) [place] % (Auto) Lymph # [place] # Baso # Seg Neutrophils % Seg Neuts % (Manual) Lymphocytes % (Manual) Monocytes % (Manual) Eosinophils % (Manual) Basophils % (Manual) Nucleated RBC % Seg Neutrophils # Seg Neutrophils # Man Lymphocytes # (Manual) Monocytes # (Manual) Eosinophils # (Manual) Basophils # (Manual) PT INR Fibrinogen dRVVT Confirm Interp Factor V Activity POC ABG pH POC ABG pCO2 POC ABG pO2 ABG pO2 ABG HCO3 ABG Base Excess ABG Hemoglobin Oxyhemoglobin Sodium Potassium Chloride Carbon Dioxide BUN Creatinine Glucose POC Glucose 206 H 173 H 139 H Lactic Acid Calcium Phosphorus Magnesium Direct Bilirubin AST ALT Alkaline Phosphatase Lactate Dehydrogenase Troponin T C-Reactive Protein Total Protein Albumin Prealbumin Triglycerides Cholesterol LDL Cholesterol Direct HDL Cholesterol Urine pH Urine WBC (Auto) Urine Creatinine Urine Total Protein Fluid Total Protein Vancomycin Trough Rheumatoid Factor Complement C4 Miscellaneous Test Crossmatch 12/14/16 12/14/16 12/14/16 05:16 06:10 11:17 WBC RBC Hgb Hct MCV MCH MCHC RDW Plt Count Lymph % (Auto) [place] % (Auto) Lymph # [place] # Baso # Seg Neutrophils % Seg Neuts % (Manual) Lymphocytes % (Manual) Monocytes % (Manual) Eosinophils % (Manual) Basophils % (Manual) Nucleated RBC % Seg Neutrophils # Seg Neutrophils # Man Lymphocytes # (Manual) Monocytes # (Manual) Eosinophils # (Manual) Basophils # (Manual) PT INR Fibrinogen dRVVT Confirm Interp Factor V Activity POC ABG pH POC ABG pCO2 POC ABG pO2 ABG pO2 ABG HCO3 ABG Base Excess ABG Hemoglobin Oxyhemoglobin Sodium Potassium Chloride Carbon Dioxide BUN 57 H Creatinine 1.4 H Glucose 135 H POC Glucose 158 H 137 H Lactic Acid Calcium Phosphorus Magnesium Direct Bilirubin AST ALT Alkaline Phosphatase Lactate Dehydrogenase Troponin T C-Reactive Protein Total Protein Albumin Prealbumin Triglycerides Cholesterol LDL Cholesterol Direct HDL Cholesterol Urine pH Urine WBC (Auto) Urine Creatinine Urine Total Protein Fluid Total Protein Vancomycin Trough Rheumatoid Factor Complement C4 Miscellaneous Test Crossmatch 12/14/16 12/14/16 12/15/16 17:52 23:27 04:00 WBC RBC Hgb Hct MCV MCH MCHC RDW Plt Count Lymph % (Auto) [place] % (Auto) Lymph # [place] # Baso # Seg Neutrophils % Seg Neuts % (Manual) Lymphocytes % (Manual) Monocytes % (Manual) Eosinophils % (Manual) Basophils % (Manual) Nucleated RBC % Seg Neutrophils # Seg Neutrophils # Man Lymphocytes # (Manual) Monocytes # (Manual) Eosinophils # (Manual) Basophils # (Manual) PT INR Fibrinogen dRVVT Confirm Interp Factor V Activity POC ABG pH POC ABG pCO2 POC ABG pO2 ABG pO2 ABG HCO3 ABG Base Excess ABG Hemoglobin Oxyhemoglobin Sodium Potassium Chloride 97.9 L Carbon Dioxide BUN 75 H Creatinine 1.6 H Glucose 122 H POC Glucose 149 H 163 H Lactic Acid Calcium Phosphorus 5.20 H Magnesium Direct Bilirubin AST ALT Alkaline Phosphatase Lactate Dehydrogenase Troponin T C-Reactive Protein Total Protein Albumin Prealbumin Triglycerides Cholesterol LDL Cholesterol Direct HDL Cholesterol Urine pH Urine WBC (Auto) Urine Creatinine Urine Total Protein Fluid Total Protein Vancomycin Trough Rheumatoid Factor Complement C4 Miscellaneous Test Crossmatch 12/15/16 12/15/16 12/15/16 05:50 11:24 17:01 WBC RBC Hgb Hct MCV MCH MCHC RDW Plt Count Lymph % (Auto) [place] % (Auto) Lymph # [place] # Baso # Seg Neutrophils % Seg Neuts % (Manual) Lymphocytes % (Manual) Monocytes % (Manual) Eosinophils % (Manual) Basophils % (Manual) Nucleated RBC % Seg Neutrophils # Seg Neutrophils # Man Lymphocytes # (Manual) Monocytes # (Manual) Eosinophils # (Manual) Basophils # (Manual) PT INR Fibrinogen dRVVT Confirm Interp Factor V Activity POC ABG pH POC ABG pCO2 POC ABG pO2 ABG pO2 ABG HCO3 ABG Base Excess ABG Hemoglobin Oxyhemoglobin Sodium Potassium Chloride Carbon Dioxide BUN Creatinine Glucose POC Glucose 150 H 146 H 167 H Lactic Acid Calcium Phosphorus Magnesium Direct Bilirubin AST ALT Alkaline Phosphatase Lactate Dehydrogenase Troponin T C-Reactive Protein Total Protein Albumin Prealbumin Triglycerides Cholesterol LDL Cholesterol Direct HDL Cholesterol Urine pH Urine WBC (Auto) Urine Creatinine Urine Total Protein Fluid Total Protein Vancomycin Trough Rheumatoid Factor Complement C4 Miscellaneous Test Crossmatch 12/15/16 12/16/16 12/16/16 23:34 05:25 11:24 WBC RBC Hgb Hct MCV MCH MCHC RDW Plt Count Lymph % (Auto) [place] % (Auto) Lymph # [place] # Baso # Seg Neutrophils % Seg Neuts % (Manual) Lymphocytes % (Manual) Monocytes % (Manual) Eosinophils % (Manual) Basophils % (Manual) Nucleated RBC % Seg Neutrophils # Seg Neutrophils # Man Lymphocytes # (Manual) Monocytes # (Manual) Eosinophils # (Manual) Basophils # (Manual) PT INR Fibrinogen dRVVT Confirm Interp Factor V Activity POC ABG pH POC ABG pCO2 POC ABG pO2 ABG pO2 ABG HCO3 ABG Base Excess ABG Hemoglobin Oxyhemoglobin Sodium Potassium Chloride Carbon Dioxide BUN Creatinine Glucose POC Glucose 127 H 139 H 165 H Lactic Acid Calcium Phosphorus Magnesium Direct Bilirubin AST ALT Alkaline Phosphatase Lactate Dehydrogenase Troponin T C-Reactive Protein Total Protein Albumin Prealbumin Triglycerides Cholesterol LDL Cholesterol Direct HDL Cholesterol Urine pH Urine WBC (Auto) Urine Creatinine Urine Total Protein Fluid Total Protein Vancomycin Trough Rheumatoid Factor Complement C4 Miscellaneous Test Crossmatch 12/16/16 12/16/16 12/16/16 15:30 16:25 17:31 WBC 17.8 H RBC 2.38 L Hgb 6.4 L Hct 20.3 L MCV MCH 27 L MCHC RDW 17.4 H Plt Count Lymph % (Auto) [place] % (Auto) Lymph # [place] # Baso # Seg Neutrophils % Seg Neuts % (Manual) Lymphocytes % (Manual) Monocytes % (Manual) 10.0 H Eosinophils % (Manual) Basophils % (Manual) Nucleated RBC % Seg Neutrophils # Seg Neutrophils # Man 8.5 H Lymphocytes # (Manual) Monocytes # (Manual) 1.8 H Eosinophils # (Manual) Basophils # (Manual) PT INR Fibrinogen dRVVT Confirm Interp Factor V Activity POC ABG pH POC ABG pCO2 POC ABG pO2 ABG pO2 ABG HCO3 ABG Base Excess ABG Hemoglobin Oxyhemoglobin Sodium Potassium Chloride Carbon Dioxide BUN Creatinine Glucose POC Glucose 176 H Lactic Acid Calcium Phosphorus Magnesium Direct Bilirubin AST ALT Alkaline Phosphatase Lactate Dehydrogenase Troponin T C-Reactive Protein Total Protein Albumin Prealbumin Triglycerides Cholesterol LDL Cholesterol Direct HDL Cholesterol Urine pH Urine WBC (Auto) Urine Creatinine Urine Total Protein Fluid Total Protein Vancomycin Trough Rheumatoid Factor Complement C4 Miscellaneous Test Crossmatch See Detail 12/17/16 12/17/16 12/17/16 00:14 04:00 05:00 WBC 20.0 H RBC 2.99 L Hgb 8.5 L Hct 25.7 L MCV MCH MCHC RDW 17.2 H Plt Count Lymph % (Auto) [place] % (Auto) Lymph # [place] # Baso # Seg Neutrophils % Seg Neuts % (Manual) Lymphocytes % (Manual) Monocytes % (Manual) Eosinophils % (Manual) Basophils % (Manual) Nucleated RBC % Seg Neutrophils # Seg Neutrophils # Man Lymphocytes # (Manual) Monocytes # (Manual) Eosinophils # (Manual) Basophils # (Manual) PT INR Fibrinogen dRVVT Confirm Interp Factor V Activity POC ABG pH POC ABG pCO2 POC ABG pO2 ABG pO2 ABG HCO3 ABG Base Excess ABG Hemoglobin Oxyhemoglobin Sodium Potassium Chloride 97.7 L Carbon Dioxide BUN 73 H Creatinine 1.7 H Glucose 136 H POC Glucose 148 H Lactic Acid Calcium Phosphorus 2.20 L Magnesium 2.70 H Direct Bilirubin AST ALT Alkaline Phosphatase Lactate Dehydrogenase Troponin T C-Reactive Protein Total Protein Albumin Prealbumin Triglycerides Cholesterol LDL Cholesterol Direct HDL Cholesterol Urine pH Urine WBC (Auto) Urine Creatinine Urine Total Protein Fluid Total Protein Vancomycin Trough Rheumatoid Factor Complement C4 Miscellaneous Test Crossmatch 12/17/16 12/17/16 12/17/16 05:39 12:50 16:32 WBC RBC Hgb Hct MCV MCH MCHC RDW Plt Count Lymph % (Auto) [place] % (Auto) Lymph # [place] # Baso # Seg Neutrophils % Seg Neuts % (Manual) Lymphocytes % (Manual) Monocytes % (Manual) Eosinophils % (Manual) Basophils % (Manual) Nucleated RBC % Seg Neutrophils # Seg Neutrophils # Man Lymphocytes # (Manual) Monocytes # (Manual) Eosinophils # (Manual) Basophils # (Manual) PT INR Fibrinogen dRVVT Confirm Interp Factor V Activity POC ABG pH POC ABG pCO2 POC ABG pO2 ABG pO2 ABG HCO3 ABG Base Excess ABG Hemoglobin Oxyhemoglobin Sodium Potassium Chloride Carbon Dioxide BUN Creatinine Glucose POC Glucose 162 H 146 H 169 H Lactic Acid Calcium Phosphorus Magnesium Direct Bilirubin AST ALT Alkaline Phosphatase Lactate Dehydrogenase Troponin T C-Reactive Protein Total Protein Albumin Prealbumin Triglycerides Cholesterol LDL Cholesterol Direct HDL Cholesterol Urine pH Urine WBC (Auto) Urine Creatinine Urine Total Protein Fluid Total Protein Vancomycin Trough Rheumatoid Factor Complement C4 Miscellaneous Test Crossmatch 12/17/16 12/18/16 12/18/16 23:57 05:00 05:32 WBC RBC Hgb Hct MCV MCH MCHC RDW Plt Count Lymph % (Auto) [place] % (Auto) Lymph # [place] # Baso # Seg Neutrophils % Seg Neuts % (Manual) Lymphocytes % (Manual) Monocytes % (Manual) Eosinophils % (Manual) Basophils % (Manual) Nucleated RBC % Seg Neutrophils # Seg Neutrophils # Man Lymphocytes # (Manual) Monocytes # (Manual) Eosinophils # (Manual) Basophils # (Manual) PT INR Fibrinogen dRVVT Confirm Interp Factor V Activity POC ABG pH POC ABG pCO2 POC ABG pO2 ABG pO2 ABG HCO3 ABG Base Excess ABG Hemoglobin Oxyhemoglobin Sodium Potassium Chloride 97.0 L Carbon Dioxide BUN 63 H Creatinine 1.4 H Glucose 174 H POC Glucose 145 H 201 H Lactic Acid Calcium Phosphorus 1.70 L D Magnesium Direct Bilirubin AST ALT Alkaline Phosphatase 257 H Lactate Dehydrogenase Troponin T C-Reactive Protein Total Protein 5.9 L Albumin 1.8 L Prealbumin Triglycerides Cholesterol LDL Cholesterol Direct HDL Cholesterol Urine pH Urine WBC (Auto) Urine Creatinine Urine Total Protein Fluid Total Protein Vancomycin Trough Rheumatoid Factor Complement C4 Miscellaneous Test Crossmatch 12/18/16 12/18/16 12/18/16 11:43 16:52 23:52 WBC RBC Hgb Hct MCV MCH MCHC RDW Plt Count Lymph % (Auto) [place] % (Auto) Lymph # [place] # Baso # Seg Neutrophils % Seg Neuts % (Manual) Lymphocytes % (Manual) Monocytes % (Manual) Eosinophils % (Manual) Basophils % (Manual) Nucleated RBC % Seg Neutrophils # Seg Neutrophils # Man Lymphocytes # (Manual) Monocytes # (Manual) Eosinophils # (Manual) Basophils # (Manual) PT INR Fibrinogen dRVVT Confirm Interp Factor V Activity POC ABG pH POC ABG pCO2 POC ABG pO2 ABG pO2 ABG HCO3 ABG Base Excess ABG Hemoglobin Oxyhemoglobin Sodium Potassium Chloride Carbon Dioxide BUN Creatinine Glucose POC Glucose 177 H 110 H 162 H Lactic Acid Calcium Phosphorus Magnesium Direct Bilirubin AST ALT Alkaline Phosphatase Lactate Dehydrogenase Troponin T C-Reactive Protein Total Protein Albumin Prealbumin Triglycerides Cholesterol LDL Cholesterol Direct HDL Cholesterol Urine pH Urine WBC (Auto) Urine Creatinine Urine Total Protein Fluid Total Protein Vancomycin Trough Rheumatoid Factor Complement C4 Miscellaneous Test Crossmatch 12/19/16 12/19/16 12/19/16 05:02 05:24 09:30 WBC 20.1 H RBC 2.73 L Hgb 7.6 L Hct 23.6 L MCV MCH MCHC RDW 17.6 H Plt Count Lymph % (Auto) [place] % (Auto) Lymph # [place] # Baso # Seg Neutrophils % Seg Neuts % (Manual) Lymphocytes % (Manual) 13.0 L Monocytes % (Manual) Eosinophils % (Manual) Basophils % (Manual) Nucleated RBC % 1.0 H Seg Neutrophils # Seg Neutrophils # Man 12.9 H Lymphocytes # (Manual) Monocytes # (Manual) 1.4 H Eosinophils # (Manual) Basophils # (Manual) 0.2 H PT INR Fibrinogen dRVVT Confirm Interp Factor V Activity POC ABG pH POC ABG pCO2 POC ABG pO2 ABG pO2 ABG HCO3 ABG Base Excess ABG Hemoglobin Oxyhemoglobin Sodium Potassium Chloride 97.8 L Carbon Dioxide BUN 84 H Creatinine 1.6 H Glucose 133 H POC Glucose 134 H Lactic Acid Calcium Phosphorus Magnesium Direct Bilirubin AST ALT Alkaline Phosphatase Lactate Dehydrogenase Troponin T C-Reactive Protein Total Protein Albumin Prealbumin Triglycerides Cholesterol LDL Cholesterol Direct HDL Cholesterol Urine pH Urine WBC (Auto) Urine Creatinine Urine Total Protein Fluid Total Protein Vancomycin Trough Rheumatoid Factor Complement C4 Miscellaneous Test Crossmatch 12/19/16 12/19/16 12/19/16 09:36 11:12 18:29 WBC RBC Hgb Hct MCV MCH MCHC RDW Plt Count Lymph % (Auto) [place] % (Auto) Lymph # [place] # Baso # Seg Neutrophils % Seg Neuts % (Manual) Lymphocytes % (Manual) Monocytes % (Manual) Eosinophils % (Manual) Basophils % (Manual) Nucleated RBC % Seg Neutrophils # Seg Neutrophils # Man Lymphocytes # (Manual) Monocytes # (Manual) Eosinophils # (Manual) Basophils # (Manual) PT INR Fibrinogen dRVVT Confirm Interp Factor V Activity POC ABG pH 7.503 H POC ABG pCO2 30.1 L POC ABG pO2 ABG pO2 ABG HCO3 ABG Base Excess ABG Hemoglobin Oxyhemoglobin Sodium Potassium Chloride Carbon Dioxide BUN Creatinine Glucose POC Glucose 138 H 156 H Lactic Acid Calcium Phosphorus Magnesium Direct Bilirubin AST ALT Alkaline Phosphatase Lactate Dehydrogenase Troponin T C-Reactive Protein Total Protein Albumin Prealbumin Triglycerides Cholesterol LDL Cholesterol Direct HDL Cholesterol Urine pH Urine WBC (Auto) Urine Creatinine Urine Total Protein Fluid Total Protein Vancomycin Trough Rheumatoid Factor Complement C4 Miscellaneous Test Crossmatch 12/20/16 12/20/16 12/20/16 00:03 06:17 07:07 WBC RBC Hgb Hct MCV MCH MCHC RDW Plt Count Lymph % (Auto) [place] % (Auto) Lymph # [place] # Baso # Seg Neutrophils % Seg Neuts % (Manual) Lymphocytes % (Manual) Monocytes % (Manual) Eosinophils % (Manual) Basophils % (Manual) Nucleated RBC % Seg Neutrophils # Seg Neutrophils # Man Lymphocytes # (Manual) Monocytes # (Manual) Eosinophils # (Manual) Basophils # (Manual) PT INR Fibrinogen dRVVT Confirm Interp Factor V Activity POC ABG pH POC ABG pCO2 POC ABG pO2 ABG pO2 ABG HCO3 ABG Base Excess ABG Hemoglobin Oxyhemoglobin Sodium Potassium Chloride 97.1 L Carbon Dioxide 20 L BUN 97 H Creatinine 1.8 H Glucose 153 H POC Glucose 152 H 175 H Lactic Acid Calcium Phosphorus Magnesium Direct Bilirubin AST ALT Alkaline Phosphatase Lactate Dehydrogenase Troponin T C-Reactive Protein Total Protein Albumin Prealbumin Triglycerides Cholesterol LDL Cholesterol Direct HDL Cholesterol Urine pH Urine WBC (Auto) Urine Creatinine Urine Total Protein Fluid Total Protein Vancomycin Trough Rheumatoid Factor Complement C4 Miscellaneous Test Crossmatch 12/20/16 12/20/16 12/20/16 12:00 17:42 23:53 WBC RBC Hgb Hct MCV MCH MCHC RDW Plt Count Lymph % (Auto) [place] % (Auto) Lymph # [place] # Baso # Seg Neutrophils % Seg Neuts % (Manual) Lymphocytes % (Manual) Monocytes % (Manual) Eosinophils % (Manual) Basophils % (Manual) Nucleated RBC % Seg Neutrophils # Seg Neutrophils # Man Lymphocytes # (Manual) Monocytes # (Manual) Eosinophils # (Manual) Basophils # (Manual) PT INR Fibrinogen dRVVT Confirm Interp Factor V Activity POC ABG pH POC ABG pCO2 POC ABG pO2 ABG pO2 ABG HCO3 ABG Base Excess ABG Hemoglobin Oxyhemoglobin Sodium Potassium Chloride Carbon Dioxide BUN Creatinine Glucose POC Glucose 141 H 156 H 132 H Lactic Acid Calcium Phosphorus Magnesium Direct Bilirubin AST ALT Alkaline Phosphatase Lactate Dehydrogenase Troponin T C-Reactive Protein Total Protein Albumin Prealbumin Triglycerides Cholesterol LDL Cholesterol Direct HDL Cholesterol Urine pH Urine WBC (Auto) Urine Creatinine Urine Total Protein Fluid Total Protein Vancomycin Trough Rheumatoid Factor Complement C4 Miscellaneous Test Crossmatch 12/21/16 12/21/16 12/21/16 05:49 08:50 12:19 WBC RBC Hgb Hct MCV MCH MCHC RDW Plt Count Lymph % (Auto) [place] % (Auto) Lymph # [place] # Baso # Seg Neutrophils % Seg Neuts % (Manual) Lymphocytes % (Manual) Monocytes % (Manual) Eosinophils % (Manual) Basophils % (Manual) Nucleated RBC % Seg Neutrophils # Seg Neutrophils # Man Lymphocytes # (Manual) Monocytes # (Manual) Eosinophils # (Manual) Basophils # (Manual) PT INR Fibrinogen dRVVT Confirm Interp Factor V Activity POC ABG pH POC ABG pCO2 POC ABG pO2 ABG pO2 ABG HCO3 ABG Base Excess ABG Hemoglobin Oxyhemoglobin Sodium Potassium 5.2 H D Chloride Carbon Dioxide BUN 63 H Creatinine Glucose 122 H POC Glucose 132 H 136 H Lactic Acid Calcium 8.3 L Phosphorus Magnesium Direct Bilirubin AST ALT Alkaline Phosphatase Lactate Dehydrogenase Troponin T C-Reactive Protein Total Protein Albumin Prealbumin Triglycerides Cholesterol LDL Cholesterol Direct HDL Cholesterol Urine pH Urine WBC (Auto) Urine Creatinine Urine Total Protein Fluid Total Protein Vancomycin Trough Rheumatoid Factor Complement C4 Miscellaneous Test Crossmatch 12/21/16 12/21/16 12/22/16 17:22 23:58 05:49 WBC RBC Hgb Hct MCV MCH MCHC RDW Plt Count Lymph % (Auto) [place] % (Auto) Lymph # [place] # Baso # Seg Neutrophils % Seg Neuts % (Manual) Lymphocytes % (Manual) Monocytes % (Manual) Eosinophils % (Manual) Basophils % (Manual) Nucleated RBC % Seg Neutrophils # Seg Neutrophils # Man Lymphocytes # (Manual) Monocytes # (Manual) Eosinophils # (Manual) Basophils # (Manual) PT INR Fibrinogen dRVVT Confirm Interp Factor V Activity POC ABG pH POC ABG pCO2 POC ABG pO2 ABG pO2 ABG HCO3 ABG Base Excess ABG Hemoglobin Oxyhemoglobin Sodium Potassium Chloride Carbon Dioxide BUN Creatinine Glucose POC Glucose 135 H 149 H 140 H Lactic Acid Calcium Phosphorus Magnesium Direct Bilirubin AST ALT Alkaline Phosphatase Lactate Dehydrogenase Troponin T C-Reactive Protein Total Protein Albumin Prealbumin Triglycerides Cholesterol LDL Cholesterol Direct HDL Cholesterol Urine pH Urine WBC (Auto) Urine Creatinine Urine Total Protein Fluid Total Protein Vancomycin Trough Rheumatoid Factor Complement C4 Miscellaneous Test Crossmatch 12/22/16 12/22/16 12/22/16 06:10 11:17 17:31 WBC RBC Hgb Hct MCV MCH MCHC RDW Plt Count Lymph % (Auto) [place] % (Auto) Lymph # [place] # Baso # Seg Neutrophils % Seg Neuts % (Manual) Lymphocytes % (Manual) Monocytes % (Manual) Eosinophils % (Manual) Basophils % (Manual) Nucleated RBC % Seg Neutrophils # Seg Neutrophils # Man Lymphocytes # (Manual) Monocytes # (Manual) Eosinophils # (Manual) Basophils # (Manual) PT INR Fibrinogen dRVVT Confirm Interp Factor V Activity POC ABG pH POC ABG pCO2 POC ABG pO2 ABG pO2 ABG HCO3 ABG Base Excess ABG Hemoglobin Oxyhemoglobin Sodium Potassium Chloride Carbon Dioxide BUN 76 H Creatinine 1.5 H Glucose 241 H POC Glucose 193 H 148 H Lactic Acid Calcium Phosphorus Magnesium Direct Bilirubin AST ALT Alkaline Phosphatase Lactate Dehydrogenase Troponin T C-Reactive Protein Total Protein Albumin Prealbumin Triglycerides Cholesterol LDL Cholesterol Direct HDL Cholesterol Urine pH Urine WBC (Auto) Urine Creatinine Urine Total Protein Fluid Total Protein Vancomycin Trough Rheumatoid Factor Complement C4 Miscellaneous Test Crossmatch 12/22/16 12/23/16 12/23/16 23:58 05:00 05:26 WBC RBC Hgb Hct MCV MCH MCHC RDW Plt Count Lymph % (Auto) [place] % (Auto) Lymph # [place] # Baso # Seg Neutrophils % Seg Neuts % (Manual) Lymphocytes % (Manual) Monocytes % (Manual) Eosinophils % (Manual) Basophils % (Manual) Nucleated RBC % Seg Neutrophils # Seg Neutrophils # Man Lymphocytes # (Manual) Monocytes # (Manual) Eosinophils # (Manual) Basophils # (Manual) PT INR Fibrinogen dRVVT Confirm Interp Factor V Activity POC ABG pH POC ABG pCO2 POC ABG pO2 ABG pO2 ABG HCO3 ABG Base Excess ABG Hemoglobin Oxyhemoglobin Sodium Potassium Chloride Carbon Dioxide BUN 49 H Creatinine Glucose 143 H POC Glucose 165 H 154 H Lactic Acid Calcium 8.2 L Phosphorus Magnesium 1.60 L Direct Bilirubin AST ALT Alkaline Phosphatase Lactate Dehydrogenase Troponin T C-Reactive Protein Total Protein Albumin Prealbumin Triglycerides Cholesterol LDL Cholesterol Direct HDL Cholesterol Urine pH Urine WBC (Auto) Urine Creatinine Urine Total Protein Fluid Total Protein Vancomycin Trough Rheumatoid Factor Complement C4 Miscellaneous Test Crossmatch 12/23/16 12/23/16 12/24/16 12:35 17:01 00:01 WBC RBC Hgb Hct MCV MCH MCHC RDW Plt Count Lymph % (Auto) [place] % (Auto) Lymph # [place] # Baso # Seg Neutrophils % Seg Neuts % (Manual) Lymphocytes % (Manual) Monocytes % (Manual) Eosinophils % (Manual) Basophils % (Manual) Nucleated RBC % Seg Neutrophils # Seg Neutrophils # Man Lymphocytes # (Manual) Monocytes # (Manual) Eosinophils # (Manual) Basophils # (Manual) PT INR Fibrinogen dRVVT Confirm Interp Factor V Activity POC ABG pH POC ABG pCO2 POC ABG pO2 ABG pO2 ABG HCO3 ABG Base Excess ABG Hemoglobin Oxyhemoglobin Sodium Potassium Chloride Carbon Dioxide BUN Creatinine Glucose POC Glucose 164 H 149 H 135 H Lactic Acid Calcium Phosphorus Magnesium Direct Bilirubin AST ALT Alkaline Phosphatase Lactate Dehydrogenase Troponin T C-Reactive Protein Total Protein Albumin Prealbumin Triglycerides Cholesterol LDL Cholesterol Direct HDL Cholesterol Urine pH Urine WBC (Auto) Urine Creatinine Urine Total Protein Fluid Total Protein Vancomycin Trough Rheumatoid Factor Complement C4 Miscellaneous Test Crossmatch 12/24/16 12/24/16 12/24/16 05:41 07:01 11:38 WBC RBC Hgb Hct MCV MCH MCHC RDW Plt Count Lymph % (Auto) [place] % (Auto) Lymph # [place] # Baso # Seg Neutrophils % Seg Neuts % (Manual) Lymphocytes % (Manual) Monocytes % (Manual) Eosinophils % (Manual) Basophils % (Manual) Nucleated RBC % Seg Neutrophils # Seg Neutrophils # Man Lymphocytes # (Manual) Monocytes # (Manual) Eosinophils # (Manual) Basophils # (Manual) PT INR Fibrinogen dRVVT Confirm Interp Factor V Activity POC ABG pH POC ABG pCO2 POC ABG pO2 ABG pO2 ABG HCO3 ABG Base Excess ABG Hemoglobin Oxyhemoglobin Sodium Potassium Chloride Carbon Dioxide BUN 72 H Creatinine 1.3 H Glucose 130 H POC Glucose 132 H 156 H Lactic Acid Calcium 8.2 L Phosphorus Magnesium Direct Bilirubin AST ALT Alkaline Phosphatase Lactate Dehydrogenase Troponin T C-Reactive Protein Total Protein Albumin Prealbumin Triglycerides Cholesterol LDL Cholesterol Direct HDL Cholesterol Urine pH Urine WBC (Auto) Urine Creatinine Urine Total Protein Fluid Total Protein Vancomycin Trough Rheumatoid Factor Complement C4 Miscellaneous Test Crossmatch 12/24/16 12/25/16 12/25/16 17:53 00:23 05:45 WBC RBC Hgb Hct MCV MCH MCHC RDW Plt Count Lymph % (Auto) [place] % (Auto) Lymph # [place] # Baso # Seg Neutrophils % Seg Neuts % (Manual) Lymphocytes % (Manual) Monocytes % (Manual) Eosinophils % (Manual) Basophils % (Manual) Nucleated RBC % Seg Neutrophils # Seg Neutrophils # Man Lymphocytes # (Manual) Monocytes # (Manual) Eosinophils # (Manual) Basophils # (Manual) PT INR Fibrinogen dRVVT Confirm Interp Factor V Activity POC ABG pH POC ABG pCO2 POC ABG pO2 ABG pO2 ABG HCO3 ABG Base Excess ABG Hemoglobin Oxyhemoglobin Sodium 146 H Potassium Chloride Carbon Dioxide BUN 51 H Creatinine Glucose 109 H POC Glucose 169 H 117 H Lactic Acid Calcium Phosphorus Magnesium Direct Bilirubin AST ALT Alkaline Phosphatase Lactate Dehydrogenase Troponin T C-Reactive Protein Total Protein Albumin Prealbumin Triglycerides Cholesterol LDL Cholesterol Direct HDL Cholesterol Urine pH Urine WBC (Auto) Urine Creatinine Urine Total Protein Fluid Total Protein Vancomycin Trough Rheumatoid Factor Complement C4 Miscellaneous Test Crossmatch 12/25/16 12/25/16 12/25/16 06:43 11:29 17:14 WBC RBC Hgb Hct MCV MCH MCHC RDW Plt Count Lymph % (Auto) [place] % (Auto) Lymph # [place] # Baso # Seg Neutrophils % Seg Neuts % (Manual) Lymphocytes % (Manual) Monocytes % (Manual) Eosinophils % (Manual) Basophils % (Manual) Nucleated RBC % Seg Neutrophils # Seg Neutrophils # Man Lymphocytes # (Manual) Monocytes # (Manual) Eosinophils # (Manual) Basophils # (Manual) PT INR Fibrinogen dRVVT Confirm Interp Factor V Activity POC ABG pH POC ABG pCO2 POC ABG pO2 ABG pO2 ABG HCO3 ABG Base Excess ABG Hemoglobin Oxyhemoglobin Sodium Potassium Chloride Carbon Dioxide BUN Creatinine Glucose POC Glucose 117 H 128 H 120 H Lactic Acid Calcium Phosphorus Magnesium Direct Bilirubin AST ALT Alkaline Phosphatase Lactate Dehydrogenase Troponin T C-Reactive Protein Total Protein Albumin Prealbumin Triglycerides Cholesterol LDL Cholesterol Direct HDL Cholesterol Urine pH Urine WBC (Auto) Urine Creatinine Urine Total Protein Fluid Total Protein Vancomycin Trough Rheumatoid Factor Complement C4 Miscellaneous Test Crossmatch 12/25/16 12/26/16 12/26/16 23:54 05:40 05:50 WBC 16.2 H RBC 2.32 L Hgb 6.2 L Hct 20.1 L MCV MCH 27 L MCHC RDW 18.6 H Plt Count Lymph % (Auto) [place] % (Auto) Lymph # [place] # Baso # Seg Neutrophils % Seg Neuts % (Manual) Lymphocytes % (Manual) Monocytes % (Manual) Eosinophils % (Manual) Basophils % (Manual) Nucleated RBC % Seg Neutrophils # Seg Neutrophils # Man Lymphocytes # (Manual) Monocytes # (Manual) Eosinophils # (Manual) Basophils # (Manual) PT INR Fibrinogen dRVVT Confirm Interp Factor V Activity POC ABG pH POC ABG pCO2 POC ABG pO2 ABG pO2 ABG HCO3 ABG Base Excess ABG Hemoglobin Oxyhemoglobin Sodium Potassium Chloride Carbon Dioxide BUN Creatinine Glucose POC Glucose 126 H 132 H Lactic Acid Calcium Phosphorus Magnesium Direct Bilirubin AST ALT Alkaline Phosphatase Lactate Dehydrogenase Troponin T C-Reactive Protein Total Protein Albumin Prealbumin Triglycerides Cholesterol LDL Cholesterol Direct HDL Cholesterol Urine pH Urine WBC (Auto) Urine Creatinine Urine Total Protein Fluid Total Protein Vancomycin Trough Rheumatoid Factor Complement C4 Miscellaneous Test Crossmatch 12/26/16 12/26/16 12/26/16 05:50 12:17 12:33 WBC RBC Hgb Hct MCV MCH MCHC RDW Plt Count Lymph % (Auto) [place] % (Auto) Lymph # [place] # Baso # Seg Neutrophils % Seg Neuts % (Manual) Lymphocytes % (Manual) Monocytes % (Manual) Eosinophils % (Manual) Basophils % (Manual) Nucleated RBC % Seg Neutrophils # Seg Neutrophils # Man Lymphocytes # (Manual) Monocytes # (Manual) Eosinophils # (Manual) Basophils # (Manual) PT INR Fibrinogen dRVVT Confirm Interp Factor V Activity POC ABG pH POC ABG pCO2 POC ABG pO2 ABG pO2 ABG HCO3 ABG Base Excess ABG Hemoglobin Oxyhemoglobin Sodium Potassium Chloride Carbon Dioxide BUN 73 H Creatinine 1.3 H Glucose 113 H POC Glucose 117 H Lactic Acid Calcium Phosphorus Magnesium Direct Bilirubin AST ALT Alkaline Phosphatase Lactate Dehydrogenase Troponin T C-Reactive Protein Total Protein Albumin Prealbumin Triglycerides Cholesterol LDL Cholesterol Direct HDL Cholesterol Urine pH Urine WBC (Auto) Urine Creatinine Urine Total Protein Fluid Total Protein Vancomycin Trough Rheumatoid Factor Complement C4 Miscellaneous Test Crossmatch See Detail 12/26/16 12/26/16 12/27/16 20:00 23:21 05:00 WBC RBC Hgb 8.4 L Hct 26.3 L D MCV MCH MCHC RDW Plt Count Lymph % (Auto) [place] % (Auto) Lymph # [place] # Baso # Seg Neutrophils % Seg Neuts % (Manual) Lymphocytes % (Manual) Monocytes % (Manual) Eosinophils % (Manual) Basophils % (Manual) Nucleated RBC % Seg Neutrophils # Seg Neutrophils # Man Lymphocytes # (Manual) Monocytes # (Manual) Eosinophils # (Manual) Basophils # (Manual) PT INR Fibrinogen dRVVT Confirm Interp Factor V Activity POC ABG pH POC ABG pCO2 POC ABG pO2 ABG pO2 ABG HCO3 ABG Base Excess ABG Hemoglobin Oxyhemoglobin Sodium Potassium Chloride Carbon Dioxide BUN 85 H Creatinine 1.6 H Glucose 118 H POC Glucose 124 H Lactic Acid Calcium Phosphorus 4.80 H Magnesium Direct Bilirubin AST ALT Alkaline Phosphatase Lactate Dehydrogenase Troponin T C-Reactive Protein Total Protein Albumin Prealbumin Triglycerides Cholesterol LDL Cholesterol Direct HDL Cholesterol Urine pH Urine WBC (Auto) Urine Creatinine Urine Total Protein Fluid Total Protein Vancomycin Trough Rheumatoid Factor Complement C4 Miscellaneous Test Crossmatch 12/27/16 12/27/16 12/27/16 05:00 05:35 12:24 WBC RBC Hgb 7.6 L Hct 22.8 L MCV MCH MCHC RDW Plt Count Lymph % (Auto) [place] % (Auto) Lymph # [place] # Baso # Seg Neutrophils % Seg Neuts % (Manual) Lymphocytes % (Manual) Monocytes % (Manual) Eosinophils % (Manual) Basophils % (Manual) Nucleated RBC % Seg Neutrophils # Seg Neutrophils # Man Lymphocytes # (Manual) Monocytes # (Manual) Eosinophils # (Manual) Basophils # (Manual) PT INR Fibrinogen dRVVT Confirm Interp Factor V Activity POC ABG pH POC ABG pCO2 POC ABG pO2 ABG pO2 ABG HCO3 ABG Base Excess ABG Hemoglobin Oxyhemoglobin Sodium Potassium Chloride Carbon Dioxide BUN Creatinine Glucose POC Glucose 115 H 131 H Lactic Acid Calcium Phosphorus Magnesium Direct Bilirubin AST ALT Alkaline Phosphatase Lactate Dehydrogenase Troponin T C-Reactive Protein Total Protein Albumin Prealbumin Triglycerides Cholesterol LDL Cholesterol Direct HDL Cholesterol Urine pH Urine WBC (Auto) Urine Creatinine Urine Total Protein Fluid Total Protein Vancomycin Trough Rheumatoid Factor Complement C4 Miscellaneous Test Crossmatch 12/27/16 12/28/16 12/28/16 17:16 00:18 04:00 WBC RBC Hgb Hct MCV MCH MCHC RDW Plt Count Lymph % (Auto) [place] % (Auto) Lymph # [place] # Baso # Seg Neutrophils % Seg Neuts % (Manual) Lymphocytes % (Manual) Monocytes % (Manual) Eosinophils % (Manual) Basophils % (Manual) Nucleated RBC % Seg Neutrophils # Seg Neutrophils # Man Lymphocytes # (Manual) Monocytes # (Manual) Eosinophils # (Manual) Basophils # (Manual) PT INR Fibrinogen dRVVT Confirm Interp Factor V Activity POC ABG pH POC ABG pCO2 POC ABG pO2 ABG pO2 ABG HCO3 ABG Base Excess ABG Hemoglobin Oxyhemoglobin Sodium Potassium 3.5 L Chloride Carbon Dioxide BUN 57 H Creatinine Glucose 118 H POC Glucose 136 H 120 H Lactic Acid Calcium 8.3 L Phosphorus Magnesium Direct Bilirubin AST ALT Alkaline Phosphatase Lactate Dehydrogenase Troponin T C-Reactive Protein Total Protein Albumin Prealbumin Triglycerides Cholesterol LDL Cholesterol Direct HDL Cholesterol Urine pH Urine WBC (Auto) Urine Creatinine Urine Total Protein Fluid Total Protein Vancomycin Trough Rheumatoid Factor Complement C4 Miscellaneous Test Crossmatch 12/28/16 12/28/16 12/28/16 04:00 05:11 08:30 WBC 17.0 H RBC 2.58 L Hgb 7.1 L Hct 22.0 L MCV MCH MCHC RDW 17.6 H Plt Count Lymph % (Auto) 12.2 L [place] % (Auto) Lymph # [place] # 1.1 H Baso # Seg Neutrophils % 80.5 H Seg Neuts % (Manual) Lymphocytes % (Manual) Monocytes % (Manual) Eosinophils % (Manual) Basophils % (Manual) Nucleated RBC % Seg Neutrophils # 13.7 H Seg Neutrophils # Man Lymphocytes # (Manual) Monocytes # (Manual) Eosinophils # (Manual) Basophils # (Manual) PT 16.1 H INR 1.23 H Fibrinogen dRVVT Confirm Interp Factor V Activity POC ABG pH POC ABG pCO2 POC ABG pO2 ABG pO2 ABG HCO3 ABG Base Excess ABG Hemoglobin Oxyhemoglobin Sodium Potassium Chloride Carbon Dioxide BUN Creatinine Glucose POC Glucose 122 H Lactic Acid Calcium Phosphorus Magnesium Direct Bilirubin AST ALT Alkaline Phosphatase Lactate Dehydrogenase Troponin T C-Reactive Protein Total Protein Albumin Prealbumin Triglycerides Cholesterol LDL Cholesterol Direct HDL Cholesterol Urine pH Urine WBC (Auto) Urine Creatinine Urine Total Protein Fluid Total Protein Vancomycin Trough Rheumatoid Factor Complement C4 Miscellaneous Test Crossmatch 12/28/16 12/28/16 12/28/16 12:27 16:32 23:46 WBC RBC Hgb Hct MCV MCH MCHC RDW Plt Count Lymph % (Auto) [place] % (Auto) Lymph # [place] # Baso # Seg Neutrophils % Seg Neuts % (Manual) Lymphocytes % (Manual) Monocytes % (Manual) Eosinophils % (Manual) Basophils % (Manual) Nucleated RBC % Seg Neutrophils # Seg Neutrophils # Man Lymphocytes # (Manual) Monocytes # (Manual) Eosinophils # (Manual) Basophils # (Manual) PT INR Fibrinogen dRVVT Confirm Interp Factor V Activity POC ABG pH POC ABG pCO2 POC ABG pO2 ABG pO2 ABG HCO3 ABG Base Excess ABG Hemoglobin Oxyhemoglobin Sodium Potassium Chloride Carbon Dioxide BUN Creatinine Glucose POC Glucose 127 H 117 H 108 H Lactic Acid Calcium Phosphorus Magnesium Direct Bilirubin AST ALT Alkaline Phosphatase Lactate Dehydrogenase Troponin T C-Reactive Protein Total Protein Albumin Prealbumin Triglycerides Cholesterol LDL Cholesterol Direct HDL Cholesterol Urine pH Urine WBC (Auto) Urine Creatinine Urine Total Protein Fluid Total Protein Vancomycin Trough Rheumatoid Factor Complement C4 Miscellaneous Test Crossmatch 12/29/16 12/29/16 12/29/16 05:15 05:15 05:32 WBC RBC Hgb Hct MCV MCH MCHC RDW Plt Count Lymph % (Auto) [place] % (Auto) Lymph # [place] # Baso # Seg Neutrophils % Seg Neuts % (Manual) Lymphocytes % (Manual) Monocytes % (Manual) Eosinophils % (Manual) Basophils % (Manual) Nucleated RBC % Seg Neutrophils # Seg Neutrophils # Man Lymphocytes # (Manual) Monocytes # (Manual) Eosinophils # (Manual) Basophils # (Manual) PT INR Fibrinogen dRVVT Confirm Interp Factor V Activity POC ABG pH POC ABG pCO2 POC ABG pO2 ABG pO2 ABG HCO3 ABG Base Excess ABG Hemoglobin Oxyhemoglobin Sodium Potassium Chloride Carbon Dioxide BUN 74 H Creatinine 1.6 H Glucose 111 H POC Glucose 123 H Lactic Acid Calcium Phosphorus Magnesium Direct Bilirubin AST ALT Alkaline Phosphatase Lactate Dehydrogenase Troponin T C-Reactive Protein Total Protein Albumin Prealbumin 0.110 L Triglycerides Cholesterol LDL Cholesterol Direct HDL Cholesterol Urine pH Urine WBC (Auto) Urine Creatinine Urine Total Protein Fluid Total Protein Vancomycin Trough Rheumatoid Factor Complement C4 Miscellaneous Test Crossmatch 12/29/16 12/29/16 12/29/16 11:43 13:45 14:00 WBC 13.8 H RBC 2.26 L Hgb 6.3 L Hct 20.4 L MCV MCH MCHC RDW 18.3 H Plt Count Lymph % (Auto) [place] % (Auto) Lymph # [place] # 0.9 H Baso # Seg Neutrophils % 78.6 H Seg Neuts % (Manual) Lymphocytes % (Manual) Monocytes % (Manual) Eosinophils % (Manual) Basophils % (Manual) Nucleated RBC % Seg Neutrophils # 10.8 H Seg Neutrophils # Man Lymphocytes # (Manual) Monocytes # (Manual) Eosinophils # (Manual) Basophils # (Manual) PT INR Fibrinogen dRVVT Confirm Interp Factor V Activity POC ABG pH POC ABG pCO2 POC ABG pO2 ABG pO2 ABG HCO3 ABG Base Excess ABG Hemoglobin Oxyhemoglobin Sodium Potassium Chloride Carbon Dioxide BUN Creatinine Glucose POC Glucose 133 H Lactic Acid Calcium Phosphorus Magnesium Direct Bilirubin AST ALT Alkaline Phosphatase Lactate Dehydrogenase Troponin T C-Reactive Protein Total Protein Albumin Prealbumin Triglycerides Cholesterol LDL Cholesterol Direct HDL Cholesterol Urine pH Urine WBC (Auto) Urine Creatinine Urine Total Protein Fluid Total Protein Vancomycin Trough Rheumatoid Factor Complement C4 Miscellaneous Test Crossmatch See Detail 12/29/16 12/29/16 12/29/16 17:03 23:15 23:22 WBC RBC Hgb 7.3 L Hct 22.3 L MCV MCH MCHC RDW Plt Count Lymph % (Auto) [place] % (Auto) Lymph # [place] # Baso # Seg Neutrophils % Seg Neuts % (Manual) Lymphocytes % (Manual) Monocytes % (Manual) Eosinophils % (Manual) Basophils % (Manual) Nucleated RBC % Seg Neutrophils # Seg Neutrophils # Man Lymphocytes # (Manual) Monocytes # (Manual) Eosinophils # (Manual) Basophils # (Manual) PT INR Fibrinogen dRVVT Confirm Interp Factor V Activity POC ABG pH POC ABG pCO2 POC ABG pO2 ABG pO2 ABG HCO3 ABG Base Excess ABG Hemoglobin Oxyhemoglobin Sodium Potassium Chloride Carbon Dioxide BUN Creatinine Glucose POC Glucose 139 H 120 H Lactic Acid Calcium Phosphorus Magnesium Direct Bilirubin AST ALT Alkaline Phosphatase Lactate Dehydrogenase Troponin T C-Reactive Protein Total Protein Albumin Prealbumin Triglycerides Cholesterol LDL Cholesterol Direct HDL Cholesterol Urine pH Urine WBC (Auto) Urine Creatinine Urine Total Protein Fluid Total Protein Vancomycin Trough Rheumatoid Factor Complement C4 Miscellaneous Test Crossmatch 12/30/16 12/30/16 12/30/16 04:20 04:20 05:43 WBC 15.6 H RBC 2.81 L Hgb 8.0 L Hct 24.0 L MCV MCH MCHC RDW 16.9 H Plt Count Lymph % (Auto) [place] % (Auto) Lymph # [place] # 1.0 H Baso # Seg Neutrophils % 76.2 H Seg Neuts % (Manual) Lymphocytes % (Manual) Monocytes % (Manual) Eosinophils % (Manual) Basophils % (Manual) Nucleated RBC % Seg Neutrophils # 11.9 H Seg Neutrophils # Man Lymphocytes # (Manual) Monocytes # (Manual) Eosinophils # (Manual) Basophils # (Manual) PT INR Fibrinogen dRVVT Confirm Interp Factor V Activity POC ABG pH POC ABG pCO2 POC ABG pO2 ABG pO2 ABG HCO3 ABG Base Excess ABG Hemoglobin Oxyhemoglobin Sodium Potassium Chloride Carbon Dioxide BUN 87 H Creatinine 1.8 H Glucose 119 H POC Glucose 115 H Lactic Acid Calcium Phosphorus Magnesium Direct Bilirubin AST ALT Alkaline Phosphatase Lactate Dehydrogenase Troponin T C-Reactive Protein Total Protein Albumin Prealbumin Triglycerides Cholesterol LDL Cholesterol Direct HDL Cholesterol Urine pH Urine WBC (Auto) Urine Creatinine Urine Total Protein Fluid Total Protein Vancomycin Trough Rheumatoid Factor Complement C4 Miscellaneous Test Crossmatch 12/30/16 12/30/16 12/31/16 17:27 23:21 04:00 WBC RBC Hgb Hct MCV MCH MCHC RDW Plt Count Lymph % (Auto) [place] % (Auto) Lymph # [place] # Baso # Seg Neutrophils % Seg Neuts % (Manual) Lymphocytes % (Manual) Monocytes % (Manual) Eosinophils % (Manual) Basophils % (Manual) Nucleated RBC % Seg Neutrophils # Seg Neutrophils # Man Lymphocytes # (Manual) Monocytes # (Manual) Eosinophils # (Manual) Basophils # (Manual) PT INR Fibrinogen dRVVT Confirm Interp Factor V Activity POC ABG pH POC ABG pCO2 POC ABG pO2 ABG pO2 ABG HCO3 ABG Base Excess ABG Hemoglobin Oxyhemoglobin Sodium Potassium Chloride Carbon Dioxide BUN 59 H Creatinine Glucose 298 H POC Glucose 144 H 125 H Lactic Acid Calcium Phosphorus Magnesium Direct Bilirubin AST ALT Alkaline Phosphatase Lactate Dehydrogenase Troponin T C-Reactive Protein Total Protein Albumin Prealbumin Triglycerides Cholesterol LDL Cholesterol Direct HDL Cholesterol Urine pH Urine WBC (Auto) Urine Creatinine Urine Total Protein Fluid Total Protein Vancomycin Trough Rheumatoid Factor Complement C4 Miscellaneous Test Crossmatch 12/31/16 12/31/16 12/31/16 05:11 12:18 18:17 WBC RBC Hgb Hct MCV MCH MCHC RDW Plt Count Lymph % (Auto) [place] % (Auto) Lymph # [place] # Baso # Seg Neutrophils % Seg Neuts % (Manual) Lymphocytes % (Manual) Monocytes % (Manual) Eosinophils % (Manual) Basophils % (Manual) Nucleated RBC % Seg Neutrophils # Seg Neutrophils # Man Lymphocytes # (Manual) Monocytes # (Manual) Eosinophils # (Manual) Basophils # (Manual) PT INR Fibrinogen dRVVT Confirm Interp Factor V Activity POC ABG pH POC ABG pCO2 POC ABG pO2 ABG pO2 ABG HCO3 ABG Base Excess ABG Hemoglobin Oxyhemoglobin Sodium Potassium Chloride Carbon Dioxide BUN Creatinine Glucose POC Glucose 167 H 125 H 133 H Lactic Acid Calcium Phosphorus Magnesium Direct Bilirubin AST ALT Alkaline Phosphatase Lactate Dehydrogenase Troponin T C-Reactive Protein Total Protein Albumin Prealbumin Triglycerides Cholesterol LDL Cholesterol Direct HDL Cholesterol Urine pH Urine WBC (Auto) Urine Creatinine Urine Total Protein Fluid Total Protein Vancomycin Trough Rheumatoid Factor Complement C4 Miscellaneous Test Crossmatch 12/31/16 01/01/17 01/01/17 23:55 05:00 05:12 WBC RBC Hgb Hct MCV MCH MCHC RDW Plt Count Lymph % (Auto) [place] % (Auto) Lymph # [place] # Baso # Seg Neutrophils % Seg Neuts % (Manual) Lymphocytes % (Manual) Monocytes % (Manual) Eosinophils % (Manual) Basophils % (Manual) Nucleated RBC % Seg Neutrophils # Seg Neutrophils # Man Lymphocytes # (Manual) Monocytes # (Manual) Eosinophils # (Manual) Basophils # (Manual) PT INR Fibrinogen dRVVT Confirm Interp Factor V Activity POC ABG pH POC ABG pCO2 POC ABG pO2 ABG pO2 ABG HCO3 ABG Base Excess ABG Hemoglobin Oxyhemoglobin Sodium Potassium Chloride Carbon Dioxide BUN 76 H Creatinine 1.5 H Glucose 109 H POC Glucose 129 H 129 H Lactic Acid Calcium Phosphorus Magnesium Direct Bilirubin AST ALT Alkaline Phosphatase 536 H Lactate Dehydrogenase Troponin T C-Reactive Protein Total Protein Albumin 1.5 L Prealbumin Triglycerides Cholesterol LDL Cholesterol Direct HDL Cholesterol Urine pH Urine WBC (Auto) Urine Creatinine Urine Total Protein Fluid Total Protein Vancomycin Trough Rheumatoid Factor Complement C4 Miscellaneous Test Crossmatch 01/01/17 01/01/17 01/01/17 12:25 17:01 23:32 WBC RBC Hgb Hct MCV MCH MCHC RDW Plt Count Lymph % (Auto) [place] % (Auto) Lymph # [place] # Baso # Seg Neutrophils % Seg Neuts % (Manual) Lymphocytes % (Manual) Monocytes % (Manual) Eosinophils % (Manual) Basophils % (Manual) Nucleated RBC % Seg Neutrophils # Seg Neutrophils # Man Lymphocytes # (Manual) Monocytes # (Manual) Eosinophils # (Manual) Basophils # (Manual) PT INR Fibrinogen dRVVT Confirm Interp Factor V Activity POC ABG pH POC ABG pCO2 POC ABG pO2 ABG pO2 ABG HCO3 ABG Base Excess ABG Hemoglobin Oxyhemoglobin Sodium Potassium Chloride Carbon Dioxide BUN Creatinine Glucose POC Glucose 140 H 142 H 112 H Lactic Acid Calcium Phosphorus Magnesium Direct Bilirubin AST ALT Alkaline Phosphatase Lactate Dehydrogenase Troponin T C-Reactive Protein Total Protein Albumin Prealbumin Triglycerides Cholesterol LDL Cholesterol Direct HDL Cholesterol Urine pH Urine WBC (Auto) Urine Creatinine Urine Total Protein Fluid Total Protein Vancomycin Trough Rheumatoid Factor Complement C4 Miscellaneous Test Crossmatch 01/02/17 01/02/17 01/02/17 04:56 06:00 11:37 WBC RBC Hgb Hct MCV MCH MCHC RDW Plt Count Lymph % (Auto) [place] % (Auto) Lymph # [place] # Baso # Seg Neutrophils % Seg Neuts % (Manual) Lymphocytes % (Manual) Monocytes % (Manual) Eosinophils % (Manual) Basophils % (Manual) Nucleated RBC % Seg Neutrophils # Seg Neutrophils # Man Lymphocytes # (Manual) Monocytes # (Manual) Eosinophils # (Manual) Basophils # (Manual) PT INR Fibrinogen dRVVT Confirm Interp Factor V Activity POC ABG pH POC ABG pCO2 POC ABG pO2 ABG pO2 ABG HCO3 ABG Base Excess ABG Hemoglobin Oxyhemoglobin Sodium Potassium Chloride Carbon Dioxide BUN 88 H Creatinine 1.7 H Glucose 113 H POC Glucose 136 H 200 H Lactic Acid Calcium Phosphorus Magnesium Direct Bilirubin AST ALT Alkaline Phosphatase Lactate Dehydrogenase Troponin T C-Reactive Protein Total Protein Albumin Prealbumin Triglycerides Cholesterol LDL Cholesterol Direct HDL Cholesterol Urine pH Urine WBC (Auto) Urine Creatinine Urine Total Protein Fluid Total Protein Vancomycin Trough Rheumatoid Factor Complement C4 Miscellaneous Test Crossmatch 01/02/17 01/02/17 01/03/17 17:42 22:52 04:54 WBC RBC Hgb Hct MCV MCH MCHC RDW Plt Count Lymph % (Auto) [place] % (Auto) Lymph # [place] # Baso # Seg Neutrophils % Seg Neuts % (Manual) Lymphocytes % (Manual) Monocytes % (Manual) Eosinophils % (Manual) Basophils % (Manual) Nucleated RBC % Seg Neutrophils # Seg Neutrophils # Man Lymphocytes # (Manual) Monocytes # (Manual) Eosinophils # (Manual) Basophils # (Manual) PT INR Fibrinogen dRVVT Confirm Interp Factor V Activity POC ABG pH POC ABG pCO2 POC ABG pO2 ABG pO2 ABG HCO3 ABG Base Excess ABG Hemoglobin Oxyhemoglobin Sodium Potassium Chloride Carbon Dioxide BUN Creatinine Glucose POC Glucose 112 H 133 H 111 H Lactic Acid Calcium Phosphorus Magnesium Direct Bilirubin AST ALT Alkaline Phosphatase Lactate Dehydrogenase Troponin T C-Reactive Protein Total Protein Albumin Prealbumin Triglycerides Cholesterol LDL Cholesterol Direct HDL Cholesterol Urine pH Urine WBC (Auto) Urine Creatinine Urine Total Protein Fluid Total Protein Vancomycin Trough Rheumatoid Factor Complement C4 Miscellaneous Test Crossmatch 01/03/17 01/03/17 05:00 05:00 WBC 11.2 H RBC 2.56 L Hgb 7.2 L Hct 22.3 L MCV MCH MCHC RDW 17.3 H Plt Count Lymph % (Auto) [place] % (Auto) 10.0 H Lymph # [place] # 1.1 H Baso # Seg Neutrophils % 70.5 H Seg Neuts % (Manual) Lymphocytes % (Manual) Monocytes % (Manual) Eosinophils % (Manual) Basophils % (Manual) Nucleated RBC % Seg Neutrophils # 7.9 H Seg Neutrophils # Man Lymphocytes # (Manual) Monocytes # (Manual) Eosinophils # (Manual) Basophils # (Manual) PT INR Fibrinogen dRVVT Confirm Interp Factor V Activity POC ABG pH POC ABG pCO2 POC ABG pO2 ABG pO2 ABG HCO3 ABG Base Excess ABG Hemoglobin Oxyhemoglobin Sodium Potassium Chloride Carbon Dioxide BUN 60 H Creatinine 1.3 H Glucose 110 H POC Glucose Lactic Acid Calcium Phosphorus Magnesium Direct Bilirubin AST ALT Alkaline Phosphatase Lactate Dehydrogenase Troponin T C-Reactive Protein Total Protein Albumin Prealbumin Triglycerides Cholesterol LDL Cholesterol Direct HDL Cholesterol Urine pH Urine WBC (Auto) Urine Creatinine Urine Total Protein Fluid Total Protein Vancomycin Trough Rheumatoid Factor Complement C4 Miscellaneous Test Crossmatch Allied health notes reviewed: RT
--- NOTE | 2017-01-03 16:29 | Progress Note ---
Assessment and Plan Assessment and plan: Patient is 46-year-old woman with a history of hypertension, diabetes, asthma, hyperlipidemia, chronic kidney disease and anxiety , who was brought in by family because, she couldn't get her words out, her face was also twisted, she was admitted for acute CVA and accelerated hypertension, she had a hx of poor adherence with her medications, and uncontrolled htn. Patient's SBP on admission was noted be greater than 260. TPA was started but this was discontinued after 5 minutes because her blood pressure became uncontrolled. The TPA was not initiated again because the patient was outside the TPA window. Status post cardiac arrest , 11/21/16 on Mechanical ventilation >96 hrs - Received CPR and was resuscitated. - Patient is on amiodarone. Fever - resolved - Antibiotic discontinued today per ID - s/p R thoracentesis on 11/14, 240cc of serous fluid removed, cx of fluid was negative - Stool negative for C. difficile Severe Sepsis with septic shock - Patient has episode of fever and leukocytosis Surgical wound infection/gram-negative sepsis/candidemia/peritonitis - On TPN JUANITA, ESRD - discussed with Dr Wadsworth - Cr 1.7 today Acute CVA with infarct - Neurology input appreciated - CT shows continued evolution of left MCA infarct with slight mass effect and edema, and there is no hemorrhage - PRINCE showed hyperdynamic with ef of 75%, neither clot nor septal defect seen - MRA Brain shows near complete occlusion of M2 and M3 of the left MCA - Repeat CT scan done on 09/11, shows stable findings - carotid doppler negative - Echo shows preserved systolic function but does show some left ventricular diastolic dysfunction - continue asa and statin Persistent vegetative state - This patient's needs placement at SNF - She was denied for LTACH Acute hypoxic respiratory failure requiring MV >96hrs - Status post tracheostomy, was on T piece Nosocomial acquired aspiration pneumonia/sepsis/UTI - Finished a course of antibiotics Asthma/COPD exacerbation - ON trach, mechanical ventilation >96 hrs Status Post CVA Bilateral pleural effusion, s/p right thoracentesis A. fib with RVR Diabetes type 2. Continue sliding-scale regular insulin and Accu-Cheks. Hyperlipidemia. Continue statin Nutrition - TPN Anemia requiring multiple transfusions/acute blood loss - currently stable - Will transfuse if it is below 7 Sacral decubitus ulcer - Status post debridement Disposition. Very poor prognosis. Ethics consult has been placed, will await there input. The high probability of a clinically significant, sudden or life threatening deterioration of the [neurologic, CV] system(s) required my full and direct attention, intervention and personal management. The aggregate critical care time was [35] minutes. This time is in addition to time spent performing reported procedures but includes the following: [x] Data Review and interpretation [x] Patient assessment and monitoring of vital signs [x] Documentation [x] Medication orders and management History Interval history: patient seen and examined, remains unresponsive on the ventilator. No new event , drains still with significant output Hospitalist Physical - Physical exam Narrative exam: GEN: Ill appearing, trach, staring into space, not tracking either NECK: SUPPLE, trach in place, ngt in place CVS: regular currently NORMAL S1S2 LUNGS/CHEST: NORMAL CHEST EXPANSION B, GOOD AIR ENTRY B ABD: SOFT, NTND, ostomy bags in different locations, GBS, NO REBOUND OR GUARDING, peg tube in place EXT/SKIN: NO SIGNIFICANT EDEMA BUT WITH UNSTAGEABLE SACRAL DECUB MSK: +spontaneous non purposeful movement NEURO: on a ventilator and unresponsive despite being off sedation PSY: Comatose, - Constitutional Vitals: Temp Pulse Resp BP Pulse Ox 99 F 112 H 15 126/74 100 01/03/17 12:00 01/03/17 16:00 01/03/17 16:00 01/03/17 16:00 01/03/17 16:00 General appearance: Present: no acute distress, well-nourished, obese Results - Labs CBC & Chem 7: 01/03/17 05:00 01/07/17 06:00 Labs: Laboratory Last Values WBC 11.2 K/mm3 (4.5-11.0) H 01/03/17 05:00 RBC 2.56 M/mm3 (3.65-5.03) L 01/03/17 05:00 Hgb 7.2 gm/dl (10.1-14.3) L 01/03/17 05:00 Hct 22.3 % (30.3-42.9) L 01/03/17 05:00 MCV 87 fl (79-97) 01/03/17 05:00 MCH 28 pg (28-32) 01/03/17 05:00 MCHC 32 % (30-34) 01/03/17 05:00 RDW 17.3 % (13.2-15.2) H 01/03/17 05:00 Plt Count 366 K/mm3 (140-440) 01/03/17 05:00 Lymph % (Auto) 18.5 % (13.4-35.0) 01/03/17 05:00 Terrell % (Auto) 10.0 % (0.0-7.3) H 01/03/17 05:00 Eos % (Auto) 0.5 % (0.0-4.3) 01/03/17 05:00 Baso % (Auto) 0.5 % (0.0-1.8) 01/03/17 05:00 Lymph # 2.1 K/mm3 (1.2-5.4) 01/03/17 05:00 Terrell # 1.1 K/mm3 (0.0-0.8) H 01/03/17 05:00 Eos # 0.1 K/mm3 (0.0-0.4) 01/03/17 05:00 Baso # 0.1 K/mm3 (0.0-0.1) 01/03/17 05:00 Add Manual Diff Complete 12/19/16 05:02 Total Counted 100 12/19/16 05:02 Seg Neutrophils % 70.5 % (40.0-70.0) H 01/03/17 05:00 Seg Neuts % (Manual) 64.0 % (40.0-70.0) 12/19/16 05:02 Band Neutrophils % 15.0 % 12/19/16 05:02 Lymphocytes % (Manual) 13.0 % (13.4-35.0) L 12/19/16 05:02 Reactive Lymphs % (Man) 0 % 12/19/16 05:02 Monocytes % (Manual) 7.0 % (0.0-7.3) 12/19/16 05:02 Eosinophils % (Manual) 0 % (0.0-4.3) 12/19/16 05:02 Basophils % (Manual) 1.0 % (0.0-1.8) 12/19/16 05:02 Metamyelocytes % 0 % 12/19/16 05:02 Myelocytes % 0 % 12/19/16 05:02 Promyelocytes % 0 % 12/19/16 05:02 Blast Cells % 0 % 12/19/16 05:02 Nucleated RBC % 1.0 % (0.0-0.9) H 12/19/16 05:02 Seg Neutrophils # 7.9 K/mm3 (1.8-7.7) H 01/03/17 05:00 Seg Neutrophils # Man 12.9 K/mm3 (1.8-7.7) H 12/19/16 05:02 Band Neutrophils # 3.0 K/mm3 12/19/16 05:02 Lymphocytes # (Manual) 2.6 K/mm3 (1.2-5.4) 12/19/16 05:02 Abs React Lymphs (Man) 0.0 K/mm3 12/19/16 05:02 Monocytes # (Manual) 1.4 K/mm3 (0.0-0.8) H 12/19/16 05:02 Eosinophils # (Manual) 0.0 K/mm3 (0.0-0.4) 12/19/16 05:02 Basophils # (Manual) 0.2 K/mm3 (0.0-0.1) H 12/19/16 05:02 Metamyelocytes # 0.0 K/mm3 12/19/16 05:02 Myelocytes # 0.0 K/mm3 12/19/16 05:02 Promyelocytes # 0.0 K/mm3 12/19/16 05:02 Blast Cells # 0.0 K/mm3 12/19/16 05:02 Pathologist Review 09/13/16 04:00 WBC Morphology Not Reportable 12/19/16 05:02 Hypersegmented Neuts Not Reportable 12/19/16 05:02 Hyposegmented Neuts Not Reportable 12/19/16 05:02 Hypogranular Neuts Not Reportable 12/19/16 05:02 Smudge Cells Not Reportable 12/19/16 05:02 Toxic Granulation Not Reportable 12/19/16 05:02 Toxic Vacuolation Not Reportable 12/19/16 05:02 Dohle Bodies Not Reportable 12/19/16 05:02 Pelger-Huet Anomaly Not Reportable 12/19/16 05:02 Jasmina Rods Not Reportable 12/19/16 05:02 Platelet Estimate Consistent w auto 12/19/16 05:02 Clumped Platelets Not Reportable 12/19/16 05:02 Plt Clumps, EDTA Not Reportable 12/19/16 05:02 Large Platelets Not Reportable 12/19/16 05:02 Giant Platelets Not Reportable 12/19/16 05:02 Platelet Satelliting Not Reportable 12/19/16 05:02 Plt Morphology Comment Not Reportable 12/19/16 05:02 RBC Morphology Not Reportable 12/19/16 05:02 Dimorphic RBCs Not Reportable 12/19/16 05:02 Polychromasia Not Reportable 12/19/16 05:02 Hypochromasia Not Reportable 12/19/16 05:02 Poikilocytosis Not Reportable 12/19/16 05:02 Anisocytosis Not Reportable 12/19/16 05:02 Microcytosis Not Reportable 12/19/16 05:02 Macrocytosis Not Reportable 12/19/16 05:02 Spherocytes Not Reportable 12/19/16 05:02 Pappenheimer Bodies Not Reportable 12/19/16 05:02 Sickle Cells Not Reportable 12/19/16 05:02 Target Cells Few 12/19/16 05:02 Tear Drop Cells Not Reportable 12/19/16 05:02 Ovalocytes Not Reportable 12/19/16 05:02 Stomatocytes Rare 12/03/16 04:00 Helmet Cells Not Reportable 12/19/16 05:02 Monet-Encinal Bodies Not Reportable 12/19/16 05:02 Pitman Rings Not Reportable 12/19/16 05:02 Chuck Cells Not Reportable 12/19/16 05:02 Bite Cells Not Reportable 12/19/16 05:02 Crenated Cell Not Reportable 12/19/16 05:02 Elliptocytes Not Reportable 12/19/16 05:02 Acanthocytes (Spur) Not Reportable 12/19/16 05:02 Rouleaux Not Reportable 12/19/16 05:02 Hemoglobin C Crystals Not Reportable 12/19/16 05:02 Schistocytes Not Reportable 12/19/16 05:02 Malaria parasites Not Reportable 12/19/16 05:02 ESR > 140.0 mm/Hr (0-20) 09/08/16 11:48 Jun Bodies Not Reportable 12/19/16 05:02 Hem Pathologist Commnt No 12/19/16 05:02 PT 16.1 Sec. (12.2-14.9) H 12/28/16 08:30 INR 1.23 (0.87-1.13) H 12/28/16 08:30 APTT 33.0 Sec. (24.2-36.6) 10/09/16 03:45 Thrombin Time 16.8 Sec. (15.1-19.6) 09/03/16 00:10 Fibrinogen 750 mg/dl (211-480) H 09/08/16 11:48 Lupus Anticoagulant see below 09/12/16 09:59 LA PTT Baseline See scanned report 09/12/16 09:59 dRVVT Confirm Interp Positive (Negative) H 09/12/16 09:59 dRVVT Screen 50:50 See scanned report 09/12/16 09:59 dRVVT Mix Interpret See scanned report 09/12/16 09:59 Protein C Antigen 122 % (70-140) 09/08/16 15:35 Free Protein S 97 % normal (50-147) 09/08/16 15:35 Total Protein S 109 % (70-140) 09/08/16 15:35 Antithrombin III Ag 100 % (80-120) 09/08/16 15:35 Heparin Anti-Xa, Unfract Negative (Negative) 09/29/16 13:35 Factor V Activity 182 % (65-150) H 09/08/16 15:35 POC ABG pH 7.503 (7.35-7.45) H 12/19/16 09:36 ABG pH 7.450 pH Units (7.350-7.450) 12/05/16 Unknown POC ABG pCO2 30.1 (35-45) L 12/19/16 09:36 ABG pCO2 29.6 mm Hg 12/05/16 Unknown POC ABG pO2 85 (80-105) 12/19/16 09:36 ABG pO2 75.2 mm Hg (80.0-90.0) L 12/05/16 Unknown POC ABG HCO3 23.6 12/19/16 09:36 ABG HCO3 20.1 mmol/L (20.0-26.0) 12/05/16 Unknown POC ABG Total CO2 25 12/19/16 09:36 POC ABG O2 Sat 97 12/19/16 09:36 ABG O2 Saturation 96.8 % (95.0-99.0) 12/05/16 Unknown ABG O2 Content 9.9 (0.0-44) 12/05/16 Unknown POC ABG Base Excess 1 12/19/16 09:36 ABG Base Excess -3.4 mmol/L (-2.0-3.0) L 12/05/16 Unknown ABG Hemoglobin 7.4 gm/dl (12.0-16.0) L 12/05/16 Unknown ABG Carboxyhemoglobin 1.8 % (0.0-5.0) 12/05/16 Unknown ABG Methemoglobin 0.6 % (0.0-1.5) 12/05/16 Unknown Oxyhemoglobin 94.5 % (95.0-99.0) L 12/05/16 Unknown FiO2 28 % 12/19/16 09:36 Sodium 139 mmol/L (137-145) 01/03/17 05:00 Potassium 4.1 mmol/L (3.6-5.0) 01/03/17 05:00 Chloride 100.9 mmol/L (98-107) 01/03/17 05:00 Carbon Dioxide 24 mmol/L (22-30) 01/03/17 05:00 Anion Gap 18 mmol/L 01/03/17 05:00 BUN 60 mg/dL (7-17) H 01/03/17 05:00 Creatinine 1.3 mg/dL (0.7-1.2) H 01/03/17 05:00 Estimated GFR 54 ml/min 01/03/17 05:00 BUN/Creatinine Ratio 46 % 01/03/17 05:00 Glucose 110 mg/dL (65-100) H 01/03/17 05:00 POC Glucose 119 (70-105) H 01/03/17 14:02 Osmolality 351 Mosm/kg 09/16/16 11:47 Lactic Acid 4.50 mmol/L (0.7-2.0) H* 09/28/16 07:25 Calcium 9.0 mg/dL (8.4-10.2) 01/03/17 05:00 Phosphorus 3.10 mg/dL (2.5-4.5) 01/02/17 06:00 Magnesium 2.20 mg/dL (1.7-2.3) 01/02/17 06:00 Total Bilirubin 0.50 mg/dL (0.1-1.2) 01/01/17 05:00 Direct Bilirubin 0.3 mg/dL (0-0.2) H 10/10/16 05:00 Indirect Bilirubin 0.1 mg/dL 10/10/16 05:00 AST 35 units/L (5-40) 01/01/17 05:00 ALT 51 units/L (7-56) 01/01/17 05:00 Alkaline Phosphatase 536 units/L (35-129) H 01/01/17 05:00 Ammonia 27.0 umol/L (25-60) 09/07/16 08:37 Lactate Dehydrogenase 196 units/L (91-180) H 11/11/16 06:59 Total Creatine Kinase 121 units/L (30-135) 09/29/16 20:12 CK-MB (CK-2) < 1.0 ng/mL (0.0-4.0) 09/29/16 20:12 CK-MB (CK-2) Rel Index 0.8 (0-4) 09/29/16 20:12 Troponin T 0.204 ng/mL (0.00-0.029) H* 09/29/16 20:12 C-Reactive Protein 19.30 mg/dL (0.00-1.30) H 12/05/16 05:00 Total Protein 6.3 g/dL (6.3-8.2) 01/01/17 05:00 Albumin 1.5 g/dL (3.9-5) L 01/01/17 05:00 Albumin/Globulin Ratio 0.3 % 01/01/17 05:00 Prealbumin 0.110 g/L (0.200-0.400) L 12/29/16 05:15 Triglycerides 137 mg/dL (2-149) 09/29/16 20:12 Cholesterol 31 mg/dL (50-199) L 09/29/16 20:12 LDL Cholesterol Direct 4 mg/dL (50-130) L 09/29/16 20:12 HDL Cholesterol 3 mg/dL (40-59) L 09/29/16 20:12 Cholesterol/HDL Ratio 10.33 % 09/29/16 20:12 Angiotensin Convert Enz See scanned report 09/08/16 11:48 Renin 0.99 ng/mL/h (0.25-5.82) 10/07/16 10:56 Aldosterone <1 ng/dL () 10/07/16 10:56 Aldosterone/Renin Dir see below 10/07/16 10:56 Serotonin Release Assay See scanned report 09/29/16 13:35 TSH 1.010 mlU/mL (0.270-4.200) 09/07/16 08:37 HCG, Qual Negative (Negative) 09/03/16 00:10 Urine Color Yellow (Yellow) 11/05/16 13:09 Urine Turbidity Clear (Clear) 11/05/16 13:09 Urine pH 9.0 (5.0-7.0) H 11/05/16 13:09 Ur Specific [place] 1.011 (1.003-1.030) 11/05/16 13:09 Urine Protein 100 mg/dl mg/dL (Negative) 11/05/16 13:09 Urine Glucose (UA) Neg mg/dL (Negative) 11/05/16 13:09 Urine Ketones Neg mg/dL (Negative) 11/05/16 13:09 Urine Blood Neg (Negative) 11/05/16 13:09 Urine Nitrite Neg (Negative) 11/05/16 13:09 Urine Bilirubin Neg (Negative) 11/05/16 13:09 Urine Urobilinogen < 2.0 mg/dL (<2.0) 11/05/16 13:09 Ur Leukocyte Esterase Neg (Negative) 11/05/16 13:09 Urine WBC (Auto) 4.0 /HPF (0.0-6.0) 11/05/16 13:09 Urine RBC (Auto) 1.0 /HPF (0.0-6.0) 11/05/16 13:09 U Epithel Cells (Auto) 1.0 /HPF (0-13.0) 10/07/16 18:30 Urine Bacteria (Auto) 4+ /HPF (Negative) 11/05/16 13:09 Urine WBC Clumps 2+ /HPF 09/07/16 02:47 Hyaline Casts 4 /LPF 09/07/16 02:47 Urine Mucus Few /HPF 10/07/16 18:30 Urine Yeast (Budding) 3+ /HPF 10/07/16 18:30 Urine Eosinophils None seen (None Seen) 09/07/16 16:00 Urine Total Volume 950 11/12/16 10:18 Urine Creatinine 19.7 mg/dL (0.1-20.0) 11/12/16 10:18 Height (in) 65.0 inches 11/12/16 10:18 Weight (lb) 181.0 lbs 11/12/16 10:18 Creatinine Clearance 5 11/12/16 10:18 Urine Sodium 36 mEq/L 09/16/16 19:19 Urine Total Protein 16 mg/dL (5-11.8) H 09/16/16 19:19 Fluid Total Protein < 3.0 (15.0-45.0) L 11/10/16 14:20 Fluid LDH 123 11/10/16 14:20 Vancomycin Trough 2.3 ug/mL (5.0-20.0) L 09/21/16 13:00 Random Vancomycin 16.5 ug/mL (0-40.0) 11/28/16 09:45 Urine Opiates Screen Presumptive negative 09/03/16 15:11 Urine Methadone Screen Presumptive positive 09/03/16 15:11 Ur Barbiturates Screen Presumptive positive 09/03/16 15:11 Ur Phencyclidine Scrn Presumptive negative 09/03/16 15:11 Ur Amphetamines Screen Presumptive negative 09/03/16 15:11 U Benzodiazepines Scrn Presumptive negative 09/03/16 15:11 Urine Cocaine Screen Presumptive negative 09/03/16 15:11 U Marijuana (THC) Screen Presumptive positive 09/03/16 15:11 Drugs of Abuse Note Disclamer 09/03/16 15:11 Rheumatoid Factor 24 IU/ml (0-13) H 09/08/16 11:48 SAHIL Screen Negative (Negative) 09/07/16 09:20 Proteinase 3 (PR3) Ab <1.0 AI (<1.0) 09/07/16 09:20 Myeloperoxidase Ab <1.0 AI (<1.0) 09/07/16 09:20 Sjogren's Antibody <1.0 AI (<1.0) 09/08/16 15:35 Scl-70 Scleroderma Ab <1.0 AI (<1.0) 09/08/16 15:35 Centromere B Antibody <1.0 AI (<1.0) 09/08/16 12:02 Heparin-induced Plt Ab Negative (Negative) 09/29/16 13:35 UF Heparin High Dose 11 % Release 09/29/16 13:35 SUDHIR UFH Low Dose 0.1 6 % Release 09/29/16 13:35 SUDHIR UFH Low Dose 0.5 8 % Release 09/29/16 13:35 Cardiolipid IgG Ab <14 GPL (<=14) 09/12/16 09:59 Cardiolipid IgA Ab <11 APL (<=11) 09/12/16 09:59 Cardiolipid IgM Ab <12 MPL (<=12) 09/12/16 09:59 Complement C3 148 mg/dL (90-180) 09/07/16 09:20 Complement C4 58 mg/dL (16-47) H 09/07/16 09:20 RPR Nonreactive (Nonreactive) 09/08/16 11:48 Hepatitis A IgM Ab Non-reactive (NonReactive) 09/24/16 14:40 Hep Bs Antigen Non-reactive (Negative) 09/24/16 14:40 Hep B Core IgM Ab Non-reactive (NonReactive) 09/24/16 14:40 Hepatitis C Antibody Non-reactive (NonReactive) 09/24/16 14:40 HIV 1&2 Antibody Rapid Non react (Non React) 09/08/16 11:48 HIV P24 Antigen Non react (Non React) 09/08/16 11:48 Miscellaneous Test Flexitest 1 H 11/05/16 13:25 Blood Type A POSITIVE 12/29/16 14:00 Antibody Screen Negative 12/29/16 14:00 DELORIS Antibody Screen Negative 11/24/16 11:20 Crossmatch See Detail 12/29/16 14:00
[2017-01-03] MEDS ORDERED: NACL 0.9% 1000 ML 1,000 ML IV SCH (17:00)
[2017-01-03] MEDS ORDERED: TPN ADULT IV SCH (20:00)
[2017-01-04] MEDS: HumuLIN R SUB-Q SCH ×3 (00:05→18:26)
[2017-01-04] MEDS: LOPRESSOR PO SCH ×4 (01:27→19:22)
[2017-01-04] MEDS: DUONEB *Not for PRN Use IH SCH ×4 (02:27→20:29)
[2017-01-04] MEDS: APRESOLINE PO SCH ×3 (06:08→22:42)
[2017-01-04] MEDS: DAKIN'S HALF STRENGTH TP SCH ×2 (10:00→22:22)
[2017-01-04] MEDS: NORVASC PO SCH (10:00)
[2017-01-04] MEDS: CORDARONE PO SCH ×2 (10:00→22:43)
--- NOTE | 2017-01-04 11:39 | Progress Note ---
Assessment and Plan Acute Hypoxemic Respiratory Failure (now with exacerbation and back on MVS) Hypertension (unable to receive p.o. meds) Atrial Fibrillation with RVR s/p tracheostomy Acute encephalopathy s/p CVA Oropharyngeal dysphagia Enterococcal bacteremia sepsis syndrome Sacral Decubitus Ulcer (s/p surgical debridement) Anemia Obesity JUANITA now on hemodialysis Enteric Fistula - continue HD/UF per nephrology; with CXR picture i will recommend continued UF sessions at least 3 x weekly - will consider thoracentesis done as should aid weaning off the ventilator and getting to a lower level of care - continue fentanyl patch for pain issues especially s/p debridement - continue NGT to LIS and continue low dose reglan - continue wound care per WCT and RN's (s/p surgical debridement) - continue prn vasopressin if MAP falls < 60mmHg - prn CRP & lactate levels if clinically indicated (Follow WBC also) - keep on with daily PSV trials and / or T-piece as tolerated (repeat trial each shift if failed earlier shift) - continue TPN administration (NPO except for meds) - continue scopolamine for secretion control - continue to wean FiO2 for sats > 94% - continue bronchodilators and pulmonary toilet - VAP bundle addressed - continue prn IV metorolol - continue metoprolol and amlodipine (hold for hypotension) - continue to follow electrolytes and correct as necessary - continue GI & VTE prophylaxis - Continue flu & pneumovax per protocol - ethics consult placed .....she remains critically ill on life sustaining interventions including MVS and at risk for further deterioration including ....34' CCT today without overlap ....care plan discussed at length during team rounds ...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 and this has intermittently been conveyed to family Subjective Date of service: 01/04/17 Principal diagnosis: Acute resp failure on MVS; S/P Acute CVA; Acute Encephalopathy; JUANITA Interval history: Patient is seen today for: Acute resp failure on MVS; S/P Acute CVA; Acute Encephalopathy; JUANITA Seen and examined at bedside; 24hour events reviewed; nursing and respiratory care staff consulted; no adverse overnight events reported to me; silvia remains critically ill and is not tolerating weaning well; remains on MVS; on PSV now but Psupp at 12diH1O; AMS is persistent; NGT still with significant effluent; persistent but improved drainage from RLQ drains; remains on dialysis Objective Vital Signs - 12hr 01/03/17 01/03/17 01/04/17 23:45 23:46 00:00 Temperature Pulse Rate 103 H 105 H Pulse Rate [ Anterior Bilateral Throughout] Pulse Rate [ From Monitor] Pulse Rate [ Left Dorsalis Pedis] Pulse Rate [ Left Radial] Pulse Rate [ Right Dorsalis Pedis] Pulse Rate [ Right Radial] Respiratory 12 22 19 Rate Respiratory Rate [Anterior Bilateral Throughout] Blood Pressure 115/70 130/79 O2 Sat by Pulse 100 100 Oximetry O2 Sat by Pulse Oximetry [ Anterior Bilateral Throughout] O2 Sat by Pulse Oximetry [ Assessment] 01/04/17 01/04/17 01/04/17 00:15 00:17 00:30 Temperature 99.1 F Pulse Rate 103 H 103 H Pulse Rate [ Anterior Bilateral Throughout] Pulse Rate [ From Monitor] Pulse Rate [ Left Dorsalis Pedis] Pulse Rate [ Left Radial] Pulse Rate [ Right Dorsalis Pedis] Pulse Rate [ Right Radial] Respiratory 19 19 Rate Respiratory Rate [Anterior Bilateral Throughout] Blood Pressure 123/76 126/77 O2 Sat by Pulse 100 100 Oximetry O2 Sat by Pulse Oximetry [ Anterior Bilateral Throughout] O2 Sat by Pulse Oximetry [ Assessment] 01/04/17 01/04/17 01/04/17 00:46 01:00 01:15 Temperature Pulse Rate 117 H 120 H 111 H Pulse Rate [ Anterior Bilateral Throughout] Pulse Rate [ From Monitor] Pulse Rate [ Left Dorsalis Pedis] Pulse Rate [ Left Radial] Pulse Rate [ Right Dorsalis Pedis] Pulse Rate [ Right Radial] Respiratory 17 17 21 Rate Respiratory Rate [Anterior Bilateral Throughout] Blood Pressure 163/103 168/96 142/98 O2 Sat by Pulse 100 98 100 Oximetry O2 Sat by Pulse Oximetry [ Anterior Bilateral Throughout] O2 Sat by Pulse Oximetry [ Assessment] 01/04/17 01/04/17 01/04/17 01:27 01:30 01:45 Temperature Pulse Rate 112 H 101 H 94 H Pulse Rate [ Anterior Bilateral Throughout] Pulse Rate [ From Monitor] Pulse Rate [ Left Dorsalis Pedis] Pulse Rate [ Left Radial] Pulse Rate [ Right Dorsalis Pedis] Pulse Rate [ Right Radial] Respiratory 19 20 Rate Respiratory Rate [Anterior Bilateral Throughout] Blood Pressure 142/98 144/94 143/87 O2 Sat by Pulse 100 100 Oximetry O2 Sat by Pulse Oximetry [ Anterior Bilateral Throughout] O2 Sat by Pulse Oximetry [ Assessment] 01/04/17 01/04/17 01/04/17 02:00 02:15 02:30 Temperature Pulse Rate 93 H 92 H 94 H Pulse Rate [ 92 H Anterior Bilateral Throughout] Pulse Rate [ From Monitor] Pulse Rate [ Left Dorsalis Pedis] Pulse Rate [ Left Radial] Pulse Rate [ Right Dorsalis Pedis] Pulse Rate [ Right Radial] Respiratory 20 19 19 Rate Respiratory 20 Rate [Anterior Bilateral Throughout] Blood Pressure 149/84 135/84 144/93 O2 Sat by Pulse 100 100 100 Oximetry O2 Sat by Pulse Oximetry [ Anterior Bilateral Throughout] O2 Sat by Pulse Oximetry [ Assessment] 01/04/17 01/04/17 01/04/17 02:45 03:00 03:15 Temperature Pulse Rate 94 H 95 H 95 H Pulse Rate [ Anterior Bilateral Throughout] Pulse Rate [ From Monitor] Pulse Rate [ Left Dorsalis Pedis] Pulse Rate [ Left Radial] Pulse Rate [ Right Dorsalis Pedis] Pulse Rate [ Right Radial] Respiratory 20 23 19 Rate Respiratory Rate [Anterior Bilateral Throughout] Blood Pressure 143/88 141/87 148/91 O2 Sat by Pulse 100 100 100 Oximetry O2 Sat by Pulse Oximetry [ Anterior Bilateral Throughout] O2 Sat by Pulse Oximetry [ Assessment] 01/04/17 01/04/17 01/04/17 03:30 03:45 03:57 Temperature 98.9 F Pulse Rate 96 H 98 H Pulse Rate [ Anterior Bilateral Throughout] Pulse Rate [ From Monitor] Pulse Rate [ Left Dorsalis Pedis] Pulse Rate [ Left Radial] Pulse Rate [ Right Dorsalis Pedis] Pulse Rate [ Right Radial] Respiratory 20 21 Rate Respiratory Rate [Anterior Bilateral Throughout] Blood Pressure 145/89 154/92 O2 Sat by Pulse 100 100 Oximetry O2 Sat by Pulse Oximetry [ Anterior Bilateral Throughout] O2 Sat by Pulse Oximetry [ Assessment] 01/04/17 01/04/17 01/04/17 04:00 04:15 04:30 Temperature Pulse Rate 96 H 97 H 97 H Pulse Rate [ Anterior Bilateral Throughout] Pulse Rate [ 86 From Monitor] Pulse Rate [ 86 Left Dorsalis Pedis] Pulse Rate [ 86 Left Radial] Pulse Rate [ 86 Right Dorsalis Pedis] Pulse Rate [ 86 Right Radial] Respiratory 22 19 19 Rate Respiratory Rate [Anterior Bilateral Throughout] Blood Pressure 147/86 141/89 140/85 O2 Sat by Pulse 100 100 100 Oximetry O2 Sat by Pulse Oximetry [ Anterior Bilateral Throughout] O2 Sat by Pulse Oximetry [ Assessment] 01/04/17 01/04/17 01/04/17 04:45 05:00 05:15 Temperature Pulse Rate 97 H 99 H 99 H Pulse Rate [ Anterior Bilateral Throughout] Pulse Rate [ From Monitor] Pulse Rate [ Left Dorsalis Pedis] Pulse Rate [ Left Radial] Pulse Rate [ Right Dorsalis Pedis] Pulse Rate [ Right Radial] Respiratory 19 20 20 Rate Respiratory Rate [Anterior Bilateral Throughout] Blood Pressure 140/87 144/92 147/86 O2 Sat by Pulse 100 100 100 Oximetry O2 Sat by Pulse Oximetry [ Anterior Bilateral Throughout] O2 Sat by Pulse Oximetry [ Assessment] 01/04/17 01/04/17 01/04/17 05:30 05:44 05:45 Temperature Pulse Rate 98 H 98 H 99 H Pulse Rate [ Anterior Bilateral Throughout] Pulse Rate [ From Monitor] Pulse Rate [ Left Dorsalis Pedis] Pulse Rate [ Left Radial] Pulse Rate [ Right Dorsalis Pedis] Pulse Rate [ Right Radial] Respiratory 21 19 Rate Respiratory Rate [Anterior Bilateral Throughout] Blood Pressure 137/89 137/80 145/88 O2 Sat by Pulse 100 100 Oximetry O2 Sat by Pulse Oximetry [ Anterior Bilateral Throughout] O2 Sat by Pulse Oximetry [ Assessment] 01/04/17 01/04/17 01/04/17 06:00 06:08 06:16 Temperature Pulse Rate 105 H 108 H 109 H Pulse Rate [ Anterior Bilateral Throughout] Pulse Rate [ From Monitor] Pulse Rate [ Left Dorsalis Pedis] Pulse Rate [ Left Radial] Pulse Rate [ Right Dorsalis Pedis] Pulse Rate [ Right Radial] Respiratory 17 21 Rate Respiratory Rate [Anterior Bilateral Throughout] Blood Pressure 142/91 142/91 182/107 O2 Sat by Pulse 100 99 Oximetry O2 Sat by Pulse Oximetry [ Anterior Bilateral Throughout] O2 Sat by Pulse Oximetry [ Assessment] 01/04/17 01/04/17 01/04/17 06:30 06:45 07:00 Temperature Pulse Rate 106 H 106 H 107 H Pulse Rate [ Anterior Bilateral Throughout] Pulse Rate [ From Monitor] Pulse Rate [ Left Dorsalis Pedis] Pulse Rate [ Left Radial] Pulse Rate [ Right Dorsalis Pedis] Pulse Rate [ Right Radial] Respiratory 21 24 22 Rate Respiratory Rate [Anterior Bilateral Throughout] Blood Pressure 133/83 143/87 137/84 O2 Sat by Pulse 99 99 99 Oximetry O2 Sat by Pulse Oximetry [ Anterior Bilateral Throughout] O2 Sat by Pulse Oximetry [ Assessment] 01/04/17 01/04/17 01/04/17 07:15 07:30 07:45 Temperature Pulse Rate 106 H 106 H 106 H Pulse Rate [ Anterior Bilateral Throughout] Pulse Rate [ From Monitor] Pulse Rate [ Left Dorsalis Pedis] Pulse Rate [ Left Radial] Pulse Rate [ Right Dorsalis Pedis] Pulse Rate [ Right Radial] Respiratory 23 24 20 Rate Respiratory Rate [Anterior Bilateral Throughout] Blood Pressure 130/79 137/80 139/79 O2 Sat by Pulse 99 99 99 Oximetry O2 Sat by Pulse Oximetry [ Anterior Bilateral Throughout] O2 Sat by Pulse Oximetry [ Assessment] 01/04/17 01/04/17 01/04/17 07:58 08:00 08:19 Temperature 98.6 F Pulse Rate 106 H Pulse Rate [ 106 H 104 H Anterior Bilateral Throughout] Pulse Rate [ From Monitor] Pulse Rate [ Left Dorsalis Pedis] Pulse Rate [ Left Radial] Pulse Rate [ Right Dorsalis Pedis] Pulse Rate [ Right Radial] Respiratory 23 Rate Respiratory 22 16 Rate [Anterior Bilateral Throughout] Blood Pressure 142/86 O2 Sat by Pulse 99 99 Oximetry O2 Sat by Pulse Oximetry [ Anterior Bilateral Throughout] O2 Sat by Pulse 99 Oximetry [ Assessment] 01/04/17 01/04/17 01/04/17 09:15 09:30 09:45 Temperature 98.6 F Pulse Rate 109 H 109 H 110 H Pulse Rate [ Anterior Bilateral Throughout] Pulse Rate [ From Monitor] Pulse Rate [ Left Dorsalis Pedis] Pulse Rate [ Left Radial] Pulse Rate [ Right Dorsalis Pedis] Pulse Rate [ Right Radial] Respiratory 32 H Rate Respiratory Rate [Anterior Bilateral Throughout] Blood Pressure 143/86 143/86 132/63 O2 Sat by Pulse Oximetry O2 Sat by Pulse 100 Oximetry [ Anterior Bilateral Throughout] O2 Sat by Pulse Oximetry [ Assessment] 01/04/17 01/04/17 01/04/17 10:00 10:15 10:30 Temperature Pulse Rate 110 H 110 H 111 H Pulse Rate [ Anterior Bilateral Throughout] Pulse Rate [ From Monitor] Pulse Rate [ Left Dorsalis Pedis] Pulse Rate [ Left Radial] Pulse Rate [ Right Dorsalis Pedis] Pulse Rate [ Right Radial] Respiratory Rate Respiratory Rate [Anterior Bilateral Throughout] Blood Pressure 140/84 127/83 118/74 O2 Sat by Pulse Oximetry O2 Sat by Pulse Oximetry [ Anterior Bilateral Throughout] O2 Sat by Pulse Oximetry [ Assessment] 01/04/17 01/04/17 01/04/17 10:45 11:03 11:17 Temperature Pulse Rate 109 H 109 H 110 H Pulse Rate [ Anterior Bilateral Throughout] Pulse Rate [ From Monitor] Pulse Rate [ Left Dorsalis Pedis] Pulse Rate [ Left Radial] Pulse Rate [ Right Dorsalis Pedis] Pulse Rate [ Right Radial] Respiratory Rate Respiratory Rate [Anterior Bilateral Throughout] Blood Pressure 117/77 121/81 120/74 O2 Sat by Pulse Oximetry O2 Sat by Pulse Oximetry [ Anterior Bilateral Throughout] O2 Sat by Pulse Oximetry [ Assessment] 01/04/17 11:32 Temperature Pulse Rate 110 H Pulse Rate [ Anterior Bilateral Throughout] Pulse Rate [ From Monitor] Pulse Rate [ Left Dorsalis Pedis] Pulse Rate [ Left Radial] Pulse Rate [ Right Dorsalis Pedis] Pulse Rate [ Right Radial] Respiratory Rate Respiratory Rate [Anterior Bilateral Throughout] Blood Pressure 120/84 O2 Sat by Pulse Oximetry O2 Sat by Pulse Oximetry [ Anterior Bilateral Throughout] O2 Sat by Pulse Oximetry [ Assessment] Constitutional: appears uncomfortable, other (not tracking) Eyes: non-icteric, other (tracheostomy tube in midline of neck) ENT: oropharynx moist, oropharyngeal exudate pre Neck: supple, no lymphadenopathy, no JVD, other (no thyromegaly) Effort: mildly labored Ascultation: Bilateral: diminished breath sounds (bases), rhonchi (and referred upper airway sounds) Percussion: Bilateral: not dull, dull (bases) Cardiovascular: regular rate and rhythm, other (no rubs / murmurs) Gastrointestinal: hypoactive bowel sounds, soft, non-tender, non-distended, other (RLQ & LUQ stomas with colostomy bags) Integumentary: decubitus ulcer (sacral; stage 4 s/p surgical debridement), other (no rash; no cellulitis; poor turgor) Extremities: no cyanosis, pulses normal, no ischemia or petechiae, edema (1+ bilaterally) Neurologic: pupils equal and round, unable to assess, other (encephalopathic) Psychiatric: other (unable to assess) CBC and BMP: 01/03/17 05:00 01/05/17 04:00 ABG, PT/INR, D-dimer: ABG POC ABG pH 7.503 (7.35-7.45) H 12/19/16 09:36 ABG pH 7.450 pH Units (7.350-7.450) 12/05/16 Unknown POC ABG pCO2 30.1 (35-45) L 12/19/16 09:36 ABG pCO2 29.6 mm Hg 12/05/16 Unknown POC ABG pO2 85 (80-105) 12/19/16 09:36 ABG pO2 75.2 mm Hg (80.0-90.0) L 12/05/16 Unknown POC ABG HCO3 23.6 12/19/16 09:36 POC ABG Total CO2 25 12/19/16 09:36 POC ABG O2 Sat 97 12/19/16 09:36 ABG O2 Saturation 96.8 % (95.0-99.0) 12/05/16 Unknown PT/INR, D-dimer PT 16.1 Sec. (12.2-14.9) H 12/28/16 08:30 INR 1.23 (0.87-1.13) H 12/28/16 08:30 Abnormal lab findings: Abnormal Labs 09/03/16 09/03/16 09/03/16 12:12 15:07 16:20 WBC RBC Hgb Hct MCV MCH MCHC RDW Plt Count Lymph % (Auto) [place] % (Auto) Lymph # [place] # Baso # Seg Neutrophils % Seg Neuts % (Manual) Lymphocytes % (Manual) Monocytes % (Manual) Eosinophils % (Manual) Basophils % (Manual) Nucleated RBC % Seg Neutrophils # Seg Neutrophils # Man Lymphocytes # (Manual) Monocytes # (Manual) Eosinophils # (Manual) Basophils # (Manual) PT INR Fibrinogen dRVVT Confirm Interp Factor V Activity POC ABG pH 7.452 H POC ABG pCO2 POC ABG pO2 ABG pO2 ABG HCO3 ABG Base Excess ABG Hemoglobin Oxyhemoglobin Sodium Potassium Chloride Carbon Dioxide BUN Creatinine Glucose POC Glucose 178 H Lactic Acid Calcium Phosphorus 2.20 L Magnesium 1.60 L Direct Bilirubin AST ALT Alkaline Phosphatase Lactate Dehydrogenase Troponin T C-Reactive Protein Total Protein Albumin Prealbumin Triglycerides Cholesterol LDL Cholesterol Direct HDL Cholesterol Urine pH Urine WBC (Auto) Urine Creatinine Urine Total Protein Fluid Total Protein Vancomycin Trough Rheumatoid Factor Complement C4 Miscellaneous Test Crossmatch 09/03/16 09/03/16 09/03/16 17:57 17:58 23:50 WBC RBC Hgb Hct MCV MCH MCHC RDW Plt Count Lymph % (Auto) [place] % (Auto) Lymph # [place] # Baso # Seg Neutrophils % Seg Neuts % (Manual) Lymphocytes % (Manual) Monocytes % (Manual) Eosinophils % (Manual) Basophils % (Manual) Nucleated RBC % Seg Neutrophils # Seg Neutrophils # Man Lymphocytes # (Manual) Monocytes # (Manual) Eosinophils # (Manual) Basophils # (Manual) PT INR Fibrinogen dRVVT Confirm Interp Factor V Activity POC ABG pH POC ABG pCO2 POC ABG pO2 ABG pO2 ABG HCO3 ABG Base Excess ABG Hemoglobin Oxyhemoglobin Sodium Potassium Chloride Carbon Dioxide BUN Creatinine Glucose POC Glucose 162 H 145 H Lactic Acid Calcium Phosphorus 2.30 L Magnesium Direct Bilirubin AST ALT Alkaline Phosphatase Lactate Dehydrogenase Troponin T C-Reactive Protein Total Protein Albumin Prealbumin Triglycerides Cholesterol LDL Cholesterol Direct HDL Cholesterol Urine pH Urine WBC (Auto) Urine Creatinine Urine Total Protein Fluid Total Protein Vancomycin Trough Rheumatoid Factor Complement C4 Miscellaneous Test Crossmatch 09/04/16 09/04/16 09/04/16 03:31 03:31 05:42 WBC RBC Hgb 9.7 L D Hct MCV 72 L MCH 23 L MCHC RDW 17.5 H Plt Count Lymph % (Auto) 11.1 L [place] % (Auto) Lymph # [place] # Baso # Seg Neutrophils % 84.3 H Seg Neuts % (Manual) Lymphocytes % (Manual) Monocytes % (Manual) Eosinophils % (Manual) Basophils % (Manual) Nucleated RBC % Seg Neutrophils # 8.9 H Seg Neutrophils # Man Lymphocytes # (Manual) Monocytes # (Manual) Eosinophils # (Manual) Basophils # (Manual) PT INR Fibrinogen dRVVT Confirm Interp Factor V Activity POC ABG pH POC ABG pCO2 POC ABG pO2 ABG pO2 ABG HCO3 ABG Base Excess ABG Hemoglobin Oxyhemoglobin Sodium 135 L Potassium 2.9 L* Chloride 97.2 L Carbon Dioxide 19 L BUN Creatinine 1.7 H Glucose 170 H POC Glucose 152 H Lactic Acid Calcium Phosphorus Magnesium Direct Bilirubin AST ALT Alkaline Phosphatase Lactate Dehydrogenase Troponin T C-Reactive Protein Total Protein Albumin Prealbumin Triglycerides 160 H Cholesterol LDL Cholesterol Direct HDL Cholesterol 31 L Urine pH Urine WBC (Auto) Urine Creatinine Urine Total Protein Fluid Total Protein Vancomycin Trough Rheumatoid Factor Complement C4 Miscellaneous Test Crossmatch 09/04/16 09/04/16 09/04/16 11:34 17:46 23:29 WBC RBC Hgb Hct MCV MCH MCHC RDW Plt Count Lymph % (Auto) [place] % (Auto) Lymph # [place] # Baso # Seg Neutrophils % Seg Neuts % (Manual) Lymphocytes % (Manual) Monocytes % (Manual) Eosinophils % (Manual) Basophils % (Manual) Nucleated RBC % Seg Neutrophils # Seg Neutrophils # Man Lymphocytes # (Manual) Monocytes # (Manual) Eosinophils # (Manual) Basophils # (Manual) PT INR Fibrinogen dRVVT Confirm Interp Factor V Activity POC ABG pH POC ABG pCO2 POC ABG pO2 ABG pO2 ABG HCO3 ABG Base Excess ABG Hemoglobin Oxyhemoglobin Sodium Potassium Chloride Carbon Dioxide BUN Creatinine Glucose POC Glucose 165 H 210 H 139 H Lactic Acid Calcium Phosphorus Magnesium Direct Bilirubin AST ALT Alkaline Phosphatase Lactate Dehydrogenase Troponin T C-Reactive Protein Total Protein Albumin Prealbumin Triglycerides Cholesterol LDL Cholesterol Direct HDL Cholesterol Urine pH Urine WBC (Auto) Urine Creatinine Urine Total Protein Fluid Total Protein Vancomycin Trough Rheumatoid Factor Complement C4 Miscellaneous Test Crossmatch 09/05/16 09/05/16 09/05/16 04:05 04:05 05:38 WBC RBC Hgb Hct MCV 76 L D MCH 23 L MCHC RDW 17.8 H Plt Count Lymph % (Auto) [place] % (Auto) Lymph # [place] # Baso # Seg Neutrophils % Seg Neuts % (Manual) Lymphocytes % (Manual) Monocytes % (Manual) Eosinophils % (Manual) Basophils % (Manual) Nucleated RBC % Seg Neutrophils # Seg Neutrophils # Man Lymphocytes # (Manual) Monocytes # (Manual) Eosinophils # (Manual) Basophils # (Manual) PT INR Fibrinogen dRVVT Confirm Interp Factor V Activity POC ABG pH POC ABG pCO2 POC ABG pO2 ABG pO2 ABG HCO3 ABG Base Excess ABG Hemoglobin Oxyhemoglobin Sodium 134 L Potassium Chloride Carbon Dioxide 18 L BUN Creatinine 1.8 H Glucose 192 H POC Glucose 175 H Lactic Acid Calcium Phosphorus Magnesium Direct Bilirubin AST ALT Alkaline Phosphatase Lactate Dehydrogenase Troponin T C-Reactive Protein Total Protein Albumin Prealbumin Triglycerides Cholesterol LDL Cholesterol Direct HDL Cholesterol Urine pH Urine WBC (Auto) Urine Creatinine Urine Total Protein Fluid Total Protein Vancomycin Trough Rheumatoid Factor Complement C4 Miscellaneous Test Crossmatch 09/05/16 09/05/16 09/05/16 11:38 17:48 23:22 WBC RBC Hgb Hct MCV MCH MCHC RDW Plt Count Lymph % (Auto) [place] % (Auto) Lymph # [place] # Baso # Seg Neutrophils % Seg Neuts % (Manual) Lymphocytes % (Manual) Monocytes % (Manual) Eosinophils % (Manual) Basophils % (Manual) Nucleated RBC % Seg Neutrophils # Seg Neutrophils # Man Lymphocytes # (Manual) Monocytes # (Manual) Eosinophils # (Manual) Basophils # (Manual) PT INR Fibrinogen dRVVT Confirm Interp Factor V Activity POC ABG pH POC ABG pCO2 POC ABG pO2 ABG pO2 ABG HCO3 ABG Base Excess ABG Hemoglobin Oxyhemoglobin Sodium Potassium Chloride Carbon Dioxide BUN Creatinine Glucose POC Glucose 164 H 186 H 195 H Lactic Acid Calcium Phosphorus Magnesium Direct Bilirubin AST ALT Alkaline Phosphatase Lactate Dehydrogenase Troponin T C-Reactive Protein Total Protein Albumin Prealbumin Triglycerides Cholesterol LDL Cholesterol Direct HDL Cholesterol Urine pH Urine WBC (Auto) Urine Creatinine Urine Total Protein Fluid Total Protein Vancomycin Trough Rheumatoid Factor Complement C4 Miscellaneous Test Crossmatch 09/06/16 09/06/16 09/06/16 04:12 05:59 07:32 WBC RBC Hgb Hct MCV MCH MCHC RDW Plt Count Lymph % (Auto) [place] % (Auto) Lymph # [place] # Baso # Seg Neutrophils % Seg Neuts % (Manual) Lymphocytes % (Manual) Monocytes % (Manual) Eosinophils % (Manual) Basophils % (Manual) Nucleated RBC % Seg Neutrophils # Seg Neutrophils # Man Lymphocytes # (Manual) Monocytes # (Manual) Eosinophils # (Manual) Basophils # (Manual) PT INR Fibrinogen dRVVT Confirm Interp Factor V Activity POC ABG pH 7.514 H POC ABG pCO2 29.1 L POC ABG pO2 72 L ABG pO2 ABG HCO3 ABG Base Excess ABG Hemoglobin Oxyhemoglobin Sodium 133 L Potassium 3.4 L Chloride 94.9 L Carbon Dioxide 19 L BUN 30 H Creatinine 2.1 H Glucose 139 H POC Glucose 146 H Lactic Acid Calcium Phosphorus Magnesium Direct Bilirubin AST ALT Alkaline Phosphatase Lactate Dehydrogenase Troponin T C-Reactive Protein Total Protein Albumin Prealbumin Triglycerides Cholesterol LDL Cholesterol Direct HDL Cholesterol Urine pH Urine WBC (Auto) Urine Creatinine Urine Total Protein Fluid Total Protein Vancomycin Trough Rheumatoid Factor Complement C4 Miscellaneous Test Crossmatch 09/06/16 09/06/16 09/06/16 11:57 17:58 19:02 WBC RBC Hgb Hct MCV MCH MCHC RDW Plt Count Lymph % (Auto) [place] % (Auto) Lymph # [place] # Baso # Seg Neutrophils % Seg Neuts % (Manual) Lymphocytes % (Manual) Monocytes % (Manual) Eosinophils % (Manual) Basophils % (Manual) Nucleated RBC % Seg Neutrophils # Seg Neutrophils # Man Lymphocytes # (Manual) Monocytes # (Manual) Eosinophils # (Manual) Basophils # (Manual) PT INR Fibrinogen dRVVT Confirm Interp Factor V Activity POC ABG pH 7.465 H POC ABG pCO2 32.0 L POC ABG pO2 ABG pO2 ABG HCO3 ABG Base Excess ABG Hemoglobin Oxyhemoglobin Sodium Potassium Chloride Carbon Dioxide BUN Creatinine Glucose POC Glucose 165 H 160 H Lactic Acid Calcium Phosphorus Magnesium Direct Bilirubin AST ALT Alkaline Phosphatase Lactate Dehydrogenase Troponin T C-Reactive Protein Total Protein Albumin Prealbumin Triglycerides Cholesterol LDL Cholesterol Direct HDL Cholesterol Urine pH Urine WBC (Auto) Urine Creatinine Urine Total Protein Fluid Total Protein Vancomycin Trough Rheumatoid Factor Complement C4 Miscellaneous Test Crossmatch 09/06/16 09/07/16 09/07/16 23:45 02:47 02:47 WBC RBC Hgb Hct MCV MCH MCHC RDW Plt Count Lymph % (Auto) [place] % (Auto) Lymph # [place] # Baso # Seg Neutrophils % Seg Neuts % (Manual) Lymphocytes % (Manual) Monocytes % (Manual) Eosinophils % (Manual) Basophils % (Manual) Nucleated RBC % Seg Neutrophils # Seg Neutrophils # Man Lymphocytes # (Manual) Monocytes # (Manual) Eosinophils # (Manual) Basophils # (Manual) PT INR Fibrinogen dRVVT Confirm Interp Factor V Activity POC ABG pH POC ABG pCO2 POC ABG pO2 ABG pO2 ABG HCO3 ABG Base Excess ABG Hemoglobin Oxyhemoglobin Sodium Potassium Chloride Carbon Dioxide BUN Creatinine Glucose POC Glucose 204 H Lactic Acid Calcium Phosphorus Magnesium Direct Bilirubin AST ALT Alkaline Phosphatase Lactate Dehydrogenase Troponin T C-Reactive Protein Total Protein Albumin Prealbumin Triglycerides Cholesterol LDL Cholesterol Direct HDL Cholesterol Urine pH Urine WBC (Auto) 68.0 H Urine Creatinine 106.1 H Urine Total Protein Fluid Total Protein Vancomycin Trough Rheumatoid Factor Complement C4 Miscellaneous Test Crossmatch 09/07/16 09/07/16 09/07/16 04:50 06:19 06:39 WBC RBC Hgb Hct MCV MCH MCHC RDW Plt Count Lymph % (Auto) [place] % (Auto) Lymph # [place] # Baso # Seg Neutrophils % Seg Neuts % (Manual) Lymphocytes % (Manual) Monocytes % (Manual) Eosinophils % (Manual) Basophils % (Manual) Nucleated RBC % Seg Neutrophils # Seg Neutrophils # Man Lymphocytes # (Manual) Monocytes # (Manual) Eosinophils # (Manual) Basophils # (Manual) PT INR Fibrinogen dRVVT Confirm Interp Factor V Activity POC ABG pH 7.457 H POC ABG pCO2 32.1 L POC ABG pO2 76 L ABG pO2 ABG HCO3 ABG Base Excess ABG Hemoglobin Oxyhemoglobin Sodium 132 L Potassium Chloride 94.7 L Carbon Dioxide BUN 53 H Creatinine 2.9 H Glucose 151 H POC Glucose 149 H Lactic Acid Calcium Phosphorus Magnesium Direct Bilirubin AST ALT Alkaline Phosphatase Lactate Dehydrogenase Troponin T C-Reactive Protein Total Protein Albumin Prealbumin Triglycerides Cholesterol LDL Cholesterol Direct HDL Cholesterol Urine pH Urine WBC (Auto) Urine Creatinine Urine Total Protein Fluid Total Protein Vancomycin Trough Rheumatoid Factor Complement C4 Miscellaneous Test Crossmatch 09/07/16 09/07/16 09/07/16 09:20 11:43 11:43 WBC 19.4 H RBC Hgb 8.3 L Hct 26.4 L D MCV 72 L D MCH 22 L MCHC RDW 17.9 H Plt Count Lymph % (Auto) 8.5 L [place] % (Auto) Lymph # [place] # 1.0 H Baso # Seg Neutrophils % 85.8 H Seg Neuts % (Manual) Lymphocytes % (Manual) Monocytes % (Manual) Eosinophils % (Manual) Basophils % (Manual) Nucleated RBC % Seg Neutrophils # 16.6 H Seg Neutrophils # Man Lymphocytes # (Manual) Monocytes # (Manual) Eosinophils # (Manual) Basophils # (Manual) PT INR Fibrinogen dRVVT Confirm Interp Factor V Activity POC ABG pH POC ABG pCO2 POC ABG pO2 ABG pO2 ABG HCO3 ABG Base Excess ABG Hemoglobin Oxyhemoglobin Sodium 134 L Potassium Chloride 97.2 L Carbon Dioxide 20 L BUN 58 H Creatinine 2.9 H Glucose 147 H POC Glucose Lactic Acid Calcium Phosphorus 2.40 L Magnesium 2.40 H Direct Bilirubin AST ALT Alkaline Phosphatase Lactate Dehydrogenase Troponin T C-Reactive Protein Total Protein 5.8 L Albumin 2.2 L Prealbumin Triglycerides Cholesterol LDL Cholesterol Direct HDL Cholesterol Urine pH Urine WBC (Auto) Urine Creatinine Urine Total Protein Fluid Total Protein Vancomycin Trough Rheumatoid Factor Complement C4 58 H Miscellaneous Test Crossmatch 09/07/16 09/07/16 09/07/16 11:50 16:00 17:31 WBC RBC Hgb Hct MCV MCH MCHC RDW Plt Count Lymph % (Auto) [place] % (Auto) Lymph # [place] # Baso # Seg Neutrophils % Seg Neuts % (Manual) Lymphocytes % (Manual) Monocytes % (Manual) Eosinophils % (Manual) Basophils % (Manual) Nucleated RBC % Seg Neutrophils # Seg Neutrophils # Man Lymphocytes # (Manual) Monocytes # (Manual) Eosinophils # (Manual) Basophils # (Manual) PT INR Fibrinogen dRVVT Confirm Interp Factor V Activity POC ABG pH POC ABG pCO2 POC ABG pO2 158 H ABG pO2 ABG HCO3 ABG Base Excess ABG Hemoglobin Oxyhemoglobin Sodium Potassium Chloride Carbon Dioxide BUN Creatinine Glucose POC Glucose 175 H Lactic Acid Calcium Phosphorus Magnesium Direct Bilirubin AST ALT Alkaline Phosphatase Lactate Dehydrogenase Troponin T C-Reactive Protein Total Protein Albumin Prealbumin Triglycerides Cholesterol LDL Cholesterol Direct HDL Cholesterol Urine pH Urine WBC (Auto) Urine Creatinine 66.3 H Urine Total Protein Fluid Total Protein Vancomycin Trough Rheumatoid Factor Complement C4 Miscellaneous Test Crossmatch 09/07/16 09/08/16 09/08/16 23:50 05:46 06:18 WBC 17.8 H RBC 3.58 L Hgb 8.1 L Hct 25.5 L MCV 71 L MCH 23 L MCHC RDW 18.4 H Plt Count Lymph % (Auto) [place] % (Auto) Lymph # [place] # Baso # Seg Neutrophils % Seg Neuts % (Manual) 92.0 H Lymphocytes % (Manual) 6.0 L Monocytes % (Manual) Eosinophils % (Manual) Basophils % (Manual) Nucleated RBC % Seg Neutrophils # Seg Neutrophils # Man 16.4 H Lymphocytes # (Manual) 1.1 L Monocytes # (Manual) Eosinophils # (Manual) Basophils # (Manual) PT INR Fibrinogen dRVVT Confirm Interp Factor V Activity POC ABG pH POC ABG pCO2 34.3 L POC ABG pO2 71 L ABG pO2 ABG HCO3 ABG Base Excess ABG Hemoglobin Oxyhemoglobin Sodium Potassium Chloride Carbon Dioxide BUN Creatinine Glucose POC Glucose 216 H Lactic Acid Calcium Phosphorus Magnesium Direct Bilirubin AST ALT Alkaline Phosphatase Lactate Dehydrogenase Troponin T C-Reactive Protein Total Protein Albumin Prealbumin Triglycerides Cholesterol LDL Cholesterol Direct HDL Cholesterol Urine pH Urine WBC (Auto) Urine Creatinine Urine Total Protein Fluid Total Protein Vancomycin Trough Rheumatoid Factor Complement C4 Miscellaneous Test Crossmatch 09/08/16 09/08/16 09/08/16 06:18 06:51 10:55 WBC RBC Hgb Hct MCV MCH MCHC RDW Plt Count Lymph % (Auto) [place] % (Auto) Lymph # [place] # Baso # Seg Neutrophils % Seg Neuts % (Manual) Lymphocytes % (Manual) Monocytes % (Manual) Eosinophils % (Manual) Basophils % (Manual) Nucleated RBC % Seg Neutrophils # Seg Neutrophils # Man Lymphocytes # (Manual) Monocytes # (Manual) Eosinophils # (Manual) Basophils # (Manual) PT INR Fibrinogen dRVVT Confirm Interp Factor V Activity POC ABG pH POC ABG pCO2 POC ABG pO2 ABG pO2 ABG HCO3 ABG Base Excess ABG Hemoglobin Oxyhemoglobin Sodium 133 L Potassium Chloride 96.9 L Carbon Dioxide 20 L BUN 63 H Creatinine 2.7 H Glucose 195 H POC Glucose 204 H 169 H Lactic Acid Calcium Phosphorus Magnesium Direct Bilirubin AST ALT Alkaline Phosphatase Lactate Dehydrogenase Troponin T C-Reactive Protein Total Protein Albumin Prealbumin Triglycerides Cholesterol LDL Cholesterol Direct HDL Cholesterol Urine pH Urine WBC (Auto) Urine Creatinine Urine Total Protein Fluid Total Protein Vancomycin Trough Rheumatoid Factor Complement C4 Miscellaneous Test Crossmatch 09/08/16 09/08/16 09/08/16 11:48 11:48 11:48 WBC RBC Hgb Hct MCV MCH MCHC RDW Plt Count Lymph % (Auto) [place] % (Auto) Lymph # [place] # Baso # Seg Neutrophils % Seg Neuts % (Manual) Lymphocytes % (Manual) Monocytes % (Manual) Eosinophils % (Manual) Basophils % (Manual) Nucleated RBC % Seg Neutrophils # Seg Neutrophils # Man Lymphocytes # (Manual) Monocytes # (Manual) Eosinophils # (Manual) Basophils # (Manual) PT INR Fibrinogen 750 H dRVVT Confirm Interp Factor V Activity POC ABG pH POC ABG pCO2 POC ABG pO2 ABG pO2 ABG HCO3 ABG Base Excess ABG Hemoglobin Oxyhemoglobin Sodium Potassium Chloride Carbon Dioxide BUN Creatinine Glucose POC Glucose Lactic Acid Calcium Phosphorus Magnesium Direct Bilirubin AST ALT Alkaline Phosphatase Lactate Dehydrogenase Troponin T C-Reactive Protein 15.70 H Total Protein Albumin Prealbumin Triglycerides Cholesterol LDL Cholesterol Direct HDL Cholesterol Urine pH Urine WBC (Auto) Urine Creatinine Urine Total Protein Fluid Total Protein Vancomycin Trough Rheumatoid Factor 24 H Complement C4 Miscellaneous Test Crossmatch 09/08/16 09/08/16 09/09/16 15:35 18:25 00:24 WBC RBC Hgb Hct MCV MCH MCHC RDW Plt Count Lymph % (Auto) [place] % (Auto) Lymph # [place] # Baso # Seg Neutrophils % Seg Neuts % (Manual) Lymphocytes % (Manual) Monocytes % (Manual) Eosinophils % (Manual) Basophils % (Manual) Nucleated RBC % Seg Neutrophils # Seg Neutrophils # Man Lymphocytes # (Manual) Monocytes # (Manual) Eosinophils # (Manual) Basophils # (Manual) PT INR Fibrinogen dRVVT Confirm Interp Factor V Activity 182 H POC ABG pH POC ABG pCO2 POC ABG pO2 ABG pO2 ABG HCO3 ABG Base Excess ABG Hemoglobin Oxyhemoglobin Sodium Potassium Chloride Carbon Dioxide BUN Creatinine Glucose POC Glucose 184 H 216 H Lactic Acid Calcium Phosphorus Magnesium Direct Bilirubin AST ALT Alkaline Phosphatase Lactate Dehydrogenase Troponin T C-Reactive Protein Total Protein Albumin Prealbumin Triglycerides Cholesterol LDL Cholesterol Direct HDL Cholesterol Urine pH Urine WBC (Auto) Urine Creatinine Urine Total Protein Fluid Total Protein Vancomycin Trough Rheumatoid Factor Complement C4 Miscellaneous Test Crossmatch 09/09/16 09/09/16 09/09/16 03:00 03:00 04:04 WBC 27.9 H RBC Hgb 8.7 L Hct 28.1 L MCV 72 L MCH 22 L MCHC RDW 18.4 H Plt Count 485 H Lymph % (Auto) [place] % (Auto) Lymph # [place] # Baso # Seg Neutrophils % Seg Neuts % (Manual) 77.0 H Lymphocytes % (Manual) 9.0 L Monocytes % (Manual) Eosinophils % (Manual) Basophils % (Manual) Nucleated RBC % Seg Neutrophils # Seg Neutrophils # Man 21.5 H Lymphocytes # (Manual) Monocytes # (Manual) 2.0 H Eosinophils # (Manual) Basophils # (Manual) PT INR Fibrinogen dRVVT Confirm Interp Factor V Activity POC ABG pH POC ABG pCO2 POC ABG pO2 121 H ABG pO2 ABG HCO3 ABG Base Excess ABG Hemoglobin Oxyhemoglobin Sodium 135 L Potassium Chloride 96.3 L Carbon Dioxide 21 L BUN 83 H Creatinine 3.0 H Glucose 135 H POC Glucose Lactic Acid Calcium Phosphorus Magnesium Direct Bilirubin AST ALT Alkaline Phosphatase Lactate Dehydrogenase Troponin T C-Reactive Protein Total Protein Albumin Prealbumin Triglycerides Cholesterol LDL Cholesterol Direct HDL Cholesterol Urine pH Urine WBC (Auto) Urine Creatinine Urine Total Protein Fluid Total Protein Vancomycin Trough Rheumatoid Factor Complement C4 Miscellaneous Test Crossmatch 09/09/16 09/09/16 09/09/16 05:41 11:55 14:13 WBC RBC Hgb Hct MCV MCH MCHC RDW Plt Count Lymph % (Auto) [place] % (Auto) Lymph # [place] # Baso # Seg Neutrophils % Seg Neuts % (Manual) Lymphocytes % (Manual) Monocytes % (Manual) Eosinophils % (Manual) Basophils % (Manual) Nucleated RBC % Seg Neutrophils # Seg Neutrophils # Man Lymphocytes # (Manual) Monocytes # (Manual) Eosinophils # (Manual) Basophils # (Manual) PT INR Fibrinogen dRVVT Confirm Interp Factor V Activity POC ABG pH POC ABG pCO2 POC ABG pO2 ABG pO2 ABG HCO3 ABG Base Excess ABG Hemoglobin Oxyhemoglobin Sodium Potassium Chloride Carbon Dioxide BUN Creatinine Glucose POC Glucose 155 H 186 H Lactic Acid Calcium Phosphorus Magnesium Direct Bilirubin AST ALT Alkaline Phosphatase Lactate Dehydrogenase Troponin T C-Reactive Protein Total Protein Albumin Prealbumin Triglycerides Cholesterol LDL Cholesterol Direct HDL Cholesterol Urine pH Urine WBC (Auto) 25.0 H Urine Creatinine Urine Total Protein Fluid Total Protein Vancomycin Trough Rheumatoid Factor Complement C4 Miscellaneous Test Crossmatch 09/09/16 09/09/16 09/10/16 17:33 23:13 05:09 WBC RBC Hgb Hct MCV MCH MCHC RDW Plt Count Lymph % (Auto) [place] % (Auto) Lymph # [place] # Baso # Seg Neutrophils % Seg Neuts % (Manual) Lymphocytes % (Manual) Monocytes % (Manual) Eosinophils % (Manual) Basophils % (Manual) Nucleated RBC % Seg Neutrophils # Seg Neutrophils # Man Lymphocytes # (Manual) Monocytes # (Manual) Eosinophils # (Manual) Basophils # (Manual) PT INR Fibrinogen dRVVT Confirm Interp Factor V Activity POC ABG pH POC ABG pCO2 POC ABG pO2 74 L ABG pO2 ABG HCO3 ABG Base Excess ABG Hemoglobin Oxyhemoglobin Sodium Potassium Chloride Carbon Dioxide BUN Creatinine Glucose POC Glucose 211 H 215 H Lactic Acid Calcium Phosphorus Magnesium Direct Bilirubin AST ALT Alkaline Phosphatase Lactate Dehydrogenase Troponin T C-Reactive Protein Total Protein Albumin Prealbumin Triglycerides Cholesterol LDL Cholesterol Direct HDL Cholesterol Urine pH Urine WBC (Auto) Urine Creatinine Urine Total Protein Fluid Total Protein Vancomycin Trough Rheumatoid Factor Complement C4 Miscellaneous Test Crossmatch 09/10/16 09/10/16 09/10/16 05:17 05:17 11:31 WBC 15.8 H RBC 3.25 L Hgb 7.3 L Hct 22.9 L MCV 71 L MCH 23 L MCHC RDW 18.4 H Plt Count Lymph % (Auto) [place] % (Auto) Lymph # [place] # Baso # Seg Neutrophils % Seg Neuts % (Manual) 91.0 H Lymphocytes % (Manual) 4.0 L Monocytes % (Manual) Eosinophils % (Manual) Basophils % (Manual) Nucleated RBC % Seg Neutrophils # Seg Neutrophils # Man 14.4 H Lymphocytes # (Manual) 0.6 L Monocytes # (Manual) Eosinophils # (Manual) Basophils # (Manual) PT INR Fibrinogen dRVVT Confirm Interp Factor V Activity POC ABG pH POC ABG pCO2 POC ABG pO2 ABG pO2 ABG HCO3 ABG Base Excess ABG Hemoglobin Oxyhemoglobin Sodium Potassium Chloride Carbon Dioxide 21 L BUN 93 H Creatinine 2.9 H Glucose 146 H POC Glucose 188 H Lactic Acid Calcium 8.1 L Phosphorus Magnesium Direct Bilirubin AST ALT Alkaline Phosphatase Lactate Dehydrogenase Troponin T C-Reactive Protein Total Protein Albumin Prealbumin Triglycerides Cholesterol LDL Cholesterol Direct HDL Cholesterol Urine pH Urine WBC (Auto) Urine Creatinine Urine Total Protein Fluid Total Protein Vancomycin Trough Rheumatoid Factor Complement C4 Miscellaneous Test Crossmatch 09/10/16 09/10/16 09/10/16 13:17 17:20 23:32 WBC RBC Hgb Hct MCV MCH MCHC RDW Plt Count Lymph % (Auto) [place] % (Auto) Lymph # [place] # Baso # Seg Neutrophils % Seg Neuts % (Manual) Lymphocytes % (Manual) Monocytes % (Manual) Eosinophils % (Manual) Basophils % (Manual) Nucleated RBC % Seg Neutrophils # Seg Neutrophils # Man Lymphocytes # (Manual) Monocytes # (Manual) Eosinophils # (Manual) Basophils # (Manual) PT INR Fibrinogen dRVVT Confirm Interp Factor V Activity POC ABG pH POC ABG pCO2 POC ABG pO2 ABG pO2 ABG HCO3 ABG Base Excess ABG Hemoglobin Oxyhemoglobin Sodium Potassium Chloride Carbon Dioxide BUN Creatinine Glucose POC Glucose 199 H 186 H Lactic Acid Calcium Phosphorus Magnesium Direct Bilirubin AST ALT Alkaline Phosphatase Lactate Dehydrogenase Troponin T C-Reactive Protein Total Protein Albumin Prealbumin Triglycerides Cholesterol LDL Cholesterol Direct HDL Cholesterol Urine pH Urine WBC (Auto) Urine Creatinine Urine Total Protein Fluid Total Protein Vancomycin Trough Rheumatoid Factor Complement C4 Miscellaneous Test Crossmatch See Detail 09/11/16 09/11/16 09/11/16 05:10 05:10 05:17 WBC 28.4 H RBC Hgb 9.2 L Hct 29.3 L D MCV 73 L MCH 23 L MCHC RDW 18.9 H Plt Count 452 H Lymph % (Auto) [place] % (Auto) Lymph # [place] # Baso # Seg Neutrophils % Seg Neuts % (Manual) 89.5 H Lymphocytes % (Manual) 2.0 L Monocytes % (Manual) Eosinophils % (Manual) Basophils % (Manual) Nucleated RBC % Seg Neutrophils # Seg Neutrophils # Man 25.4 H Lymphocytes # (Manual) 0.6 L Monocytes # (Manual) 1.3 H Eosinophils # (Manual) Basophils # (Manual) PT INR Fibrinogen dRVVT Confirm Interp Factor V Activity POC ABG pH POC ABG pCO2 POC ABG pO2 ABG pO2 ABG HCO3 ABG Base Excess ABG Hemoglobin Oxyhemoglobin Sodium 136 L Potassium Chloride Carbon Dioxide 18 L BUN 107 H Creatinine 2.6 H Glucose 187 H POC Glucose 230 H Lactic Acid Calcium 8.3 L Phosphorus Magnesium Direct Bilirubin AST ALT Alkaline Phosphatase Lactate Dehydrogenase Troponin T C-Reactive Protein Total Protein Albumin Prealbumin Triglycerides Cholesterol LDL Cholesterol Direct HDL Cholesterol Urine pH Urine WBC (Auto) Urine Creatinine Urine Total Protein Fluid Total Protein Vancomycin Trough Rheumatoid Factor Complement C4 Miscellaneous Test Crossmatch 09/11/16 09/11/16 09/11/16 05:55 12:02 17:32 WBC RBC Hgb Hct MCV MCH MCHC RDW Plt Count Lymph % (Auto) [place] % (Auto) Lymph # [place] # Baso # Seg Neutrophils % Seg Neuts % (Manual) Lymphocytes % (Manual) Monocytes % (Manual) Eosinophils % (Manual) Basophils % (Manual) Nucleated RBC % Seg Neutrophils # Seg Neutrophils # Man Lymphocytes # (Manual) Monocytes # (Manual) Eosinophils # (Manual) Basophils # (Manual) PT INR Fibrinogen dRVVT Confirm Interp Factor V Activity POC ABG pH POC ABG pCO2 33.8 L POC ABG pO2 ABG pO2 ABG HCO3 ABG Base Excess ABG Hemoglobin Oxyhemoglobin Sodium Potassium Chloride Carbon Dioxide BUN Creatinine Glucose POC Glucose 191 H 239 H Lactic Acid Calcium Phosphorus Magnesium Direct Bilirubin AST ALT Alkaline Phosphatase Lactate Dehydrogenase Troponin T C-Reactive Protein Total Protein Albumin Prealbumin Triglycerides Cholesterol LDL Cholesterol Direct HDL Cholesterol Urine pH Urine WBC (Auto) Urine Creatinine Urine Total Protein Fluid Total Protein Vancomycin Trough Rheumatoid Factor Complement C4 Miscellaneous Test Crossmatch 09/11/16 09/12/16 09/12/16 23:52 05:09 05:32 WBC RBC Hgb Hct MCV MCH MCHC RDW Plt Count Lymph % (Auto) [place] % (Auto) Lymph # [place] # Baso # Seg Neutrophils % Seg Neuts % (Manual) Lymphocytes % (Manual) Monocytes % (Manual) Eosinophils % (Manual) Basophils % (Manual) Nucleated RBC % Seg Neutrophils # Seg Neutrophils # Man Lymphocytes # (Manual) Monocytes # (Manual) Eosinophils # (Manual) Basophils # (Manual) PT INR Fibrinogen dRVVT Confirm Interp Factor V Activity POC ABG pH POC ABG pCO2 34.6 L POC ABG pO2 ABG pO2 ABG HCO3 ABG Base Excess ABG Hemoglobin Oxyhemoglobin Sodium Potassium Chloride Carbon Dioxide BUN Creatinine Glucose POC Glucose 265 H 184 H Lactic Acid Calcium Phosphorus Magnesium Direct Bilirubin AST ALT Alkaline Phosphatase Lactate Dehydrogenase Troponin T C-Reactive Protein Total Protein Albumin Prealbumin Triglycerides Cholesterol LDL Cholesterol Direct HDL Cholesterol Urine pH Urine WBC (Auto) Urine Creatinine Urine Total Protein Fluid Total Protein Vancomycin Trough Rheumatoid Factor Complement C4 Miscellaneous Test Crossmatch 09/12/16 09/12/16 09/12/16 06:45 06:45 07:22 WBC 31.7 H RBC 3.54 L Hgb 8.3 L Hct 25.9 L MCV 73 L MCH 23 L MCHC RDW 18.9 H Plt Count Lymph % (Auto) [place] % (Auto) Lymph # [place] # Baso # Seg Neutrophils % Seg Neuts % (Manual) 88.5 H Lymphocytes % (Manual) 4.5 L Monocytes % (Manual) Eosinophils % (Manual) Basophils % (Manual) Nucleated RBC % Seg Neutrophils # Seg Neutrophils # Man 28.1 H Lymphocytes # (Manual) Monocytes # (Manual) 1.0 H Eosinophils # (Manual) Basophils # (Manual) PT INR Fibrinogen dRVVT Confirm Interp Factor V Activity POC ABG pH POC ABG pCO2 POC ABG pO2 ABG pO2 ABG HCO3 ABG Base Excess ABG Hemoglobin Oxyhemoglobin Sodium Potassium Chloride Carbon Dioxide 20 L BUN 115 H Creatinine 2.7 H Glucose 165 H POC Glucose Lactic Acid Calcium 8.0 L Phosphorus Magnesium Direct Bilirubin AST ALT Alkaline Phosphatase Lactate Dehydrogenase Troponin T C-Reactive Protein Total Protein Albumin Prealbumin Triglycerides 217 H Cholesterol LDL Cholesterol Direct HDL Cholesterol Urine pH Urine WBC (Auto) Urine Creatinine Urine Total Protein Fluid Total Protein Vancomycin Trough Rheumatoid Factor Complement C4 Miscellaneous Test Crossmatch 09/12/16 09/12/16 09/12/16 07:22 09:59 12:21 WBC RBC Hgb Hct MCV MCH MCHC RDW Plt Count Lymph % (Auto) [place] % (Auto) Lymph # [place] # Baso # Seg Neutrophils % Seg Neuts % (Manual) Lymphocytes % (Manual) Monocytes % (Manual) Eosinophils % (Manual) Basophils % (Manual) Nucleated RBC % Seg Neutrophils # Seg Neutrophils # Man Lymphocytes # (Manual) Monocytes # (Manual) Eosinophils # (Manual) Basophils # (Manual) PT INR Fibrinogen dRVVT Confirm Interp Positive H Factor V Activity POC ABG pH POC ABG pCO2 POC ABG pO2 ABG pO2 ABG HCO3 ABG Base Excess ABG Hemoglobin Oxyhemoglobin Sodium Potassium Chloride Carbon Dioxide BUN Creatinine Glucose POC Glucose 224 H Lactic Acid Calcium Phosphorus Magnesium Direct Bilirubin AST ALT Alkaline Phosphatase Lactate Dehydrogenase Troponin T C-Reactive Protein 1.70 H Total Protein Albumin Prealbumin Triglycerides Cholesterol LDL Cholesterol Direct HDL Cholesterol Urine pH Urine WBC (Auto) Urine Creatinine Urine Total Protein Fluid Total Protein Vancomycin Trough Rheumatoid Factor Complement C4 Miscellaneous Test Crossmatch 09/12/16 09/12/16 09/13/16 16:51 23:28 04:00 WBC 45.0 H* RBC Hgb 9.4 L Hct MCV 75 L MCH 23 L MCHC RDW 19.0 H Plt Count 470 H Lymph % (Auto) [place] % (Auto) Lymph # [place] # Baso # Seg Neutrophils % Seg Neuts % (Manual) 89.0 H Lymphocytes % (Manual) 5.0 L Monocytes % (Manual) Eosinophils % (Manual) Basophils % (Manual) Nucleated RBC % Seg Neutrophils # Seg Neutrophils # Man 40.1 H Lymphocytes # (Manual) Monocytes # (Manual) Eosinophils # (Manual) Basophils # (Manual) PT INR Fibrinogen dRVVT Confirm Interp Factor V Activity POC ABG pH POC ABG pCO2 POC ABG pO2 ABG pO2 ABG HCO3 ABG Base Excess ABG Hemoglobin Oxyhemoglobin Sodium Potassium Chloride Carbon Dioxide BUN Creatinine Glucose POC Glucose 169 H 150 H Lactic Acid Calcium Phosphorus Magnesium Direct Bilirubin AST ALT Alkaline Phosphatase Lactate Dehydrogenase Troponin T C-Reactive Protein Total Protein Albumin Prealbumin Triglycerides Cholesterol LDL Cholesterol Direct HDL Cholesterol Urine pH Urine WBC (Auto) Urine Creatinine Urine Total Protein Fluid Total Protein Vancomycin Trough Rheumatoid Factor Complement C4 Miscellaneous Test Crossmatch 09/13/16 09/13/16 09/13/16 04:00 11:26 17:31 WBC RBC Hgb Hct MCV MCH MCHC RDW Plt Count Lymph % (Auto) [place] % (Auto) Lymph # [place] # Baso # Seg Neutrophils % Seg Neuts % (Manual) Lymphocytes % (Manual) Monocytes % (Manual) Eosinophils % (Manual) Basophils % (Manual) Nucleated RBC % Seg Neutrophils # Seg Neutrophils # Man Lymphocytes # (Manual) Monocytes # (Manual) Eosinophils # (Manual) Basophils # (Manual) PT INR Fibrinogen dRVVT Confirm Interp Factor V Activity POC ABG pH POC ABG pCO2 POC ABG pO2 ABG pO2 ABG HCO3 ABG Base Excess ABG Hemoglobin Oxyhemoglobin Sodium Potassium Chloride Carbon Dioxide 20 L BUN 116 H Creatinine 3.0 H Glucose 172 H POC Glucose 140 H 183 H Lactic Acid Calcium Phosphorus Magnesium Direct Bilirubin AST ALT Alkaline Phosphatase Lactate Dehydrogenase Troponin T C-Reactive Protein Total Protein 6.2 L Albumin 2.9 L Prealbumin Triglycerides Cholesterol LDL Cholesterol Direct HDL Cholesterol Urine pH Urine WBC (Auto) Urine Creatinine Urine Total Protein Fluid Total Protein Vancomycin Trough Rheumatoid Factor Complement C4 Miscellaneous Test Crossmatch 09/13/16 09/14/16 09/14/16 23:23 04:06 04:07 WBC 29.4 H RBC Hgb 8.9 L Hct 27.3 L MCV 75 L MCH 24 L MCHC RDW 19.1 H Plt Count Lymph % (Auto) [place] % (Auto) Lymph # [place] # Baso # Seg Neutrophils % Seg Neuts % (Manual) 84.0 H Lymphocytes % (Manual) 6.0 L Monocytes % (Manual) 9.0 H Eosinophils % (Manual) Basophils % (Manual) Nucleated RBC % Seg Neutrophils # Seg Neutrophils # Man 24.7 H Lymphocytes # (Manual) Monocytes # (Manual) 2.6 H Eosinophils # (Manual) Basophils # (Manual) PT INR Fibrinogen dRVVT Confirm Interp Factor V Activity POC ABG pH 7.342 L POC ABG pCO2 POC ABG pO2 116 H ABG pO2 ABG HCO3 ABG Base Excess ABG Hemoglobin Oxyhemoglobin Sodium Potassium Chloride Carbon Dioxide BUN Creatinine Glucose POC Glucose 154 H Lactic Acid Calcium Phosphorus Magnesium Direct Bilirubin AST ALT Alkaline Phosphatase Lactate Dehydrogenase Troponin T C-Reactive Protein Total Protein Albumin Prealbumin Triglycerides Cholesterol LDL Cholesterol Direct HDL Cholesterol Urine pH Urine WBC (Auto) Urine Creatinine Urine Total Protein Fluid Total Protein Vancomycin Trough Rheumatoid Factor Complement C4 Miscellaneous Test Crossmatch 09/14/16 09/14/16 09/14/16 04:07 05:29 12:19 WBC RBC Hgb Hct MCV MCH MCHC RDW Plt Count Lymph % (Auto) [place] % (Auto) Lymph # [place] # Baso # Seg Neutrophils % Seg Neuts % (Manual) Lymphocytes % (Manual) Monocytes % (Manual) Eosinophils % (Manual) Basophils % (Manual) Nucleated RBC % Seg Neutrophils # Seg Neutrophils # Man Lymphocytes # (Manual) Monocytes # (Manual) Eosinophils # (Manual) Basophils # (Manual) PT INR Fibrinogen dRVVT Confirm Interp Factor V Activity POC ABG pH POC ABG pCO2 POC ABG pO2 ABG pO2 ABG HCO3 ABG Base Excess ABG Hemoglobin Oxyhemoglobin Sodium 136 L Potassium Chloride Carbon Dioxide 18 L BUN 121 H Creatinine 2.8 H Glucose 214 H POC Glucose 239 H 181 H Lactic Acid Calcium Phosphorus Magnesium Direct Bilirubin AST ALT Alkaline Phosphatase Lactate Dehydrogenase Troponin T C-Reactive Protein Total Protein Albumin Prealbumin Triglycerides Cholesterol LDL Cholesterol Direct HDL Cholesterol Urine pH Urine WBC (Auto) Urine Creatinine Urine Total Protein Fluid Total Protein Vancomycin Trough Rheumatoid Factor Complement C4 Miscellaneous Test Crossmatch 09/14/16 09/14/16 09/15/16 18:12 23:37 05:00 WBC 26.1 H RBC 3.05 L Hgb 7.2 L Hct 22.9 L MCV 75 L MCH 24 L MCHC RDW 19.0 H Plt Count Lymph % (Auto) [place] % (Auto) Lymph # [place] # Baso # Seg Neutrophils % Seg Neuts % (Manual) Lymphocytes % (Manual) Monocytes % (Manual) Eosinophils % (Manual) Basophils % (Manual) Nucleated RBC % Seg Neutrophils # Seg Neutrophils # Man Lymphocytes # (Manual) Monocytes # (Manual) Eosinophils # (Manual) Basophils # (Manual) PT INR Fibrinogen dRVVT Confirm Interp Factor V Activity POC ABG pH POC ABG pCO2 POC ABG pO2 ABG pO2 ABG HCO3 ABG Base Excess ABG Hemoglobin Oxyhemoglobin Sodium Potassium Chloride Carbon Dioxide BUN Creatinine Glucose POC Glucose 266 H 154 H Lactic Acid Calcium Phosphorus Magnesium Direct Bilirubin AST ALT Alkaline Phosphatase Lactate Dehydrogenase Troponin T C-Reactive Protein Total Protein Albumin Prealbumin Triglycerides Cholesterol LDL Cholesterol Direct HDL Cholesterol Urine pH Urine WBC (Auto) Urine Creatinine Urine Total Protein Fluid Total Protein Vancomycin Trough Rheumatoid Factor Complement C4 Miscellaneous Test Crossmatch 09/15/16 09/15/16 09/15/16 05:00 05:17 12:45 WBC RBC Hgb Hct MCV MCH MCHC RDW Plt Count Lymph % (Auto) [place] % (Auto) Lymph # [place] # Baso # Seg Neutrophils % Seg Neuts % (Manual) Lymphocytes % (Manual) Monocytes % (Manual) Eosinophils % (Manual) Basophils % (Manual) Nucleated RBC % Seg Neutrophils # Seg Neutrophils # Man Lymphocytes # (Manual) Monocytes # (Manual) Eosinophils # (Manual) Basophils # (Manual) PT INR Fibrinogen dRVVT Confirm Interp Factor V Activity POC ABG pH POC ABG pCO2 POC ABG pO2 ABG pO2 ABG HCO3 ABG Base Excess ABG Hemoglobin Oxyhemoglobin Sodium Potassium 5.2 H Chloride Carbon Dioxide 18 L BUN 139 H Creatinine 3.7 H Glucose 227 H POC Glucose 226 H 244 H Lactic Acid Calcium 8.3 L Phosphorus Magnesium Direct Bilirubin AST ALT Alkaline Phosphatase Lactate Dehydrogenase Troponin T C-Reactive Protein Total Protein Albumin Prealbumin Triglycerides Cholesterol LDL Cholesterol Direct HDL Cholesterol Urine pH Urine WBC (Auto) Urine Creatinine Urine Total Protein Fluid Total Protein Vancomycin Trough Rheumatoid Factor Complement C4 Miscellaneous Test Crossmatch 09/15/16 09/15/16 09/15/16 14:32 17:33 23:35 WBC RBC Hgb Hct MCV MCH MCHC RDW Plt Count Lymph % (Auto) [place] % (Auto) Lymph # [place] # Baso # Seg Neutrophils % Seg Neuts % (Manual) Lymphocytes % (Manual) Monocytes % (Manual) Eosinophils % (Manual) Basophils % (Manual) Nucleated RBC % Seg Neutrophils # Seg Neutrophils # Man Lymphocytes # (Manual) Monocytes # (Manual) Eosinophils # (Manual) Basophils # (Manual) PT INR Fibrinogen dRVVT Confirm Interp Factor V Activity POC ABG pH POC ABG pCO2 27.7 L POC ABG pO2 120 H ABG pO2 ABG HCO3 ABG Base Excess ABG Hemoglobin Oxyhemoglobin Sodium Potassium Chloride Carbon Dioxide BUN Creatinine Glucose POC Glucose 232 H 167 H Lactic Acid Calcium Phosphorus Magnesium Direct Bilirubin AST ALT Alkaline Phosphatase Lactate Dehydrogenase Troponin T C-Reactive Protein Total Protein Albumin Prealbumin Triglycerides Cholesterol LDL Cholesterol Direct HDL Cholesterol Urine pH Urine WBC (Auto) Urine Creatinine Urine Total Protein Fluid Total Protein Vancomycin Trough Rheumatoid Factor Complement C4 Miscellaneous Test Crossmatch 09/16/16 09/16/16 09/16/16 03:58 10:27 10:27 WBC 19.0 H RBC 2.77 L Hgb 6.5 L Hct 20.9 L MCV 76 L MCH 23 L MCHC RDW 19.3 H Plt Count Lymph % (Auto) 11.0 L [place] % (Auto) Lymph # [place] # 1.1 H Baso # Seg Neutrophils % 82.5 H Seg Neuts % (Manual) Lymphocytes % (Manual) Monocytes % (Manual) Eosinophils % (Manual) Basophils % (Manual) Nucleated RBC % Seg Neutrophils # 15.7 H Seg Neutrophils # Man Lymphocytes # (Manual) Monocytes # (Manual) Eosinophils # (Manual) Basophils # (Manual) PT INR Fibrinogen dRVVT Confirm Interp Factor V Activity POC ABG pH POC ABG pCO2 POC ABG pO2 ABG pO2 ABG HCO3 ABG Base Excess ABG Hemoglobin Oxyhemoglobin Sodium Potassium Chloride 109.3 H Carbon Dioxide 18 L BUN 139 H Creatinine 4.1 H Glucose 144 H POC Glucose 146 H Lactic Acid Calcium 8.1 L Phosphorus Magnesium Direct Bilirubin AST ALT Alkaline Phosphatase Lactate Dehydrogenase Troponin T C-Reactive Protein Total Protein Albumin Prealbumin Triglycerides Cholesterol LDL Cholesterol Direct HDL Cholesterol Urine pH Urine WBC (Auto) Urine Creatinine Urine Total Protein Fluid Total Protein Vancomycin Trough Rheumatoid Factor Complement C4 Miscellaneous Test Crossmatch 09/16/16 09/16/16 09/16/16 12:04 12:10 13:55 WBC RBC Hgb Hct MCV MCH MCHC RDW Plt Count Lymph % (Auto) [place] % (Auto) Lymph # [place] # Baso # Seg Neutrophils % Seg Neuts % (Manual) Lymphocytes % (Manual) Monocytes % (Manual) Eosinophils % (Manual) Basophils % (Manual) Nucleated RBC % Seg Neutrophils # Seg Neutrophils # Man Lymphocytes # (Manual) Monocytes # (Manual) Eosinophils # (Manual) Basophils # (Manual) PT INR Fibrinogen dRVVT Confirm Interp Factor V Activity POC ABG pH POC ABG pCO2 32.9 L POC ABG pO2 ABG pO2 ABG HCO3 ABG Base Excess ABG Hemoglobin Oxyhemoglobin Sodium Potassium Chloride Carbon Dioxide BUN Creatinine Glucose POC Glucose 185 H Lactic Acid Calcium Phosphorus Magnesium Direct Bilirubin AST ALT Alkaline Phosphatase Lactate Dehydrogenase Troponin T C-Reactive Protein Total Protein Albumin Prealbumin Triglycerides Cholesterol LDL Cholesterol Direct HDL Cholesterol Urine pH Urine WBC (Auto) Urine Creatinine Urine Total Protein Fluid Total Protein Vancomycin Trough Rheumatoid Factor Complement C4 Miscellaneous Test Crossmatch See Detail 09/16/16 09/16/16 09/16/16 17:55 19:19 23:48 WBC RBC Hgb Hct MCV MCH MCHC RDW Plt Count Lymph % (Auto) [place] % (Auto) Lymph # [place] # Baso # Seg Neutrophils % Seg Neuts % (Manual) Lymphocytes % (Manual) Monocytes % (Manual) Eosinophils % (Manual) Basophils % (Manual) Nucleated RBC % Seg Neutrophils # Seg Neutrophils # Man Lymphocytes # (Manual) Monocytes # (Manual) Eosinophils # (Manual) Basophils # (Manual) PT INR Fibrinogen dRVVT Confirm Interp Factor V Activity POC ABG pH POC ABG pCO2 POC ABG pO2 ABG pO2 ABG HCO3 ABG Base Excess ABG Hemoglobin Oxyhemoglobin Sodium Potassium Chloride Carbon Dioxide BUN Creatinine Glucose POC Glucose 222 H 107 H Lactic Acid Calcium Phosphorus Magnesium Direct Bilirubin AST ALT Alkaline Phosphatase Lactate Dehydrogenase Troponin T C-Reactive Protein Total Protein Albumin Prealbumin Triglycerides Cholesterol LDL Cholesterol Direct HDL Cholesterol Urine pH Urine WBC (Auto) Urine Creatinine 47.4 H Urine Total Protein 16 H Fluid Total Protein Vancomycin Trough Rheumatoid Factor Complement C4 Miscellaneous Test Crossmatch 09/17/16 09/17/16 09/17/16 03:45 03:45 04:55 WBC 19.6 H RBC 3.41 L Hgb 8.5 L Hct 26.7 L MCV 78 L MCH 25 L MCHC RDW 19.9 H Plt Count Lymph % (Auto) 9.3 L [place] % (Auto) Lymph # [place] # 1.2 H Baso # Seg Neutrophils % 83.9 H Seg Neuts % (Manual) Lymphocytes % (Manual) Monocytes % (Manual) Eosinophils % (Manual) Basophils % (Manual) Nucleated RBC % Seg Neutrophils # 16.4 H Seg Neutrophils # Man Lymphocytes # (Manual) Monocytes # (Manual) Eosinophils # (Manual) Basophils # (Manual) PT INR Fibrinogen dRVVT Confirm Interp Factor V Activity POC ABG pH POC ABG pCO2 POC ABG pO2 ABG pO2 ABG HCO3 ABG Base Excess ABG Hemoglobin Oxyhemoglobin Sodium 146 H Potassium 5.1 H Chloride 110.9 H Carbon Dioxide 16 L BUN 146 H Creatinine 4.0 H Glucose 108 H POC Glucose 133 H Lactic Acid Calcium Phosphorus Magnesium 3.00 H Direct Bilirubin AST ALT Alkaline Phosphatase Lactate Dehydrogenase Troponin T C-Reactive Protein Total Protein Albumin Prealbumin Triglycerides Cholesterol LDL Cholesterol Direct HDL Cholesterol Urine pH Urine WBC (Auto) Urine Creatinine Urine Total Protein Fluid Total Protein Vancomycin Trough Rheumatoid Factor Complement C4 Miscellaneous Test Crossmatch 09/17/16 09/17/16 09/17/16 11:15 17:33 23:47 WBC RBC Hgb Hct MCV MCH MCHC RDW Plt Count Lymph % (Auto) [place] % (Auto) Lymph # [place] # Baso # Seg Neutrophils % Seg Neuts % (Manual) Lymphocytes % (Manual) Monocytes % (Manual) Eosinophils % (Manual) Basophils % (Manual) Nucleated RBC % Seg Neutrophils # Seg Neutrophils # Man Lymphocytes # (Manual) Monocytes # (Manual) Eosinophils # (Manual) Basophils # (Manual) PT INR Fibrinogen dRVVT Confirm Interp Factor V Activity POC ABG pH POC ABG pCO2 POC ABG pO2 ABG pO2 ABG HCO3 ABG Base Excess ABG Hemoglobin Oxyhemoglobin Sodium Potassium Chloride Carbon Dioxide BUN Creatinine Glucose POC Glucose 176 H 246 H 148 H Lactic Acid Calcium Phosphorus Magnesium Direct Bilirubin AST ALT Alkaline Phosphatase Lactate Dehydrogenase Troponin T C-Reactive Protein Total Protein Albumin Prealbumin Triglycerides Cholesterol LDL Cholesterol Direct HDL Cholesterol Urine pH Urine WBC (Auto) Urine Creatinine Urine Total Protein Fluid Total Protein Vancomycin Trough Rheumatoid Factor Complement C4 Miscellaneous Test Crossmatch 09/18/16 09/18/16 09/18/16 05:33 08:31 08:31 WBC 18.0 H RBC 3.17 L Hgb 9.0 L Hct 25.7 L MCV MCH MCHC 35 H RDW 20.4 H Plt Count Lymph % (Auto) [place] % (Auto) Lymph # [place] # Baso # Seg Neutrophils % Seg Neuts % (Manual) Lymphocytes % (Manual) Monocytes % (Manual) Eosinophils % (Manual) Basophils % (Manual) Nucleated RBC % Seg Neutrophils # Seg Neutrophils # Man Lymphocytes # (Manual) Monocytes # (Manual) Eosinophils # (Manual) Basophils # (Manual) PT INR Fibrinogen dRVVT Confirm Interp Factor V Activity POC ABG pH POC ABG pCO2 POC ABG pO2 ABG pO2 ABG HCO3 ABG Base Excess ABG Hemoglobin Oxyhemoglobin Sodium Potassium Chloride Carbon Dioxide 15 L BUN 124 H Creatinine 3.8 H Glucose POC Glucose 120 H Lactic Acid Calcium 8.1 L Phosphorus Magnesium Direct Bilirubin AST ALT Alkaline Phosphatase Lactate Dehydrogenase Troponin T C-Reactive Protein Total Protein Albumin Prealbumin Triglycerides Cholesterol LDL Cholesterol Direct HDL Cholesterol Urine pH Urine WBC (Auto) Urine Creatinine Urine Total Protein Fluid Total Protein Vancomycin Trough Rheumatoid Factor Complement C4 Miscellaneous Test Crossmatch 09/18/16 09/18/16 09/18/16 12:03 15:34 17:50 WBC RBC Hgb Hct MCV MCH MCHC RDW Plt Count Lymph % (Auto) [place] % (Auto) Lymph # [place] # Baso # Seg Neutrophils % Seg Neuts % (Manual) Lymphocytes % (Manual) Monocytes % (Manual) Eosinophils % (Manual) Basophils % (Manual) Nucleated RBC % Seg Neutrophils # Seg Neutrophils # Man Lymphocytes # (Manual) Monocytes # (Manual) Eosinophils # (Manual) Basophils # (Manual) PT INR Fibrinogen dRVVT Confirm Interp Factor V Activity POC ABG pH POC ABG pCO2 25.7 L POC ABG pO2 66 L ABG pO2 ABG HCO3 ABG Base Excess ABG Hemoglobin Oxyhemoglobin Sodium Potassium Chloride Carbon Dioxide BUN Creatinine Glucose POC Glucose 156 H 220 H Lactic Acid Calcium Phosphorus Magnesium Direct Bilirubin AST ALT Alkaline Phosphatase Lactate Dehydrogenase Troponin T C-Reactive Protein Total Protein Albumin Prealbumin Triglycerides Cholesterol LDL Cholesterol Direct HDL Cholesterol Urine pH Urine WBC (Auto) Urine Creatinine Urine Total Protein Fluid Total Protein Vancomycin Trough Rheumatoid Factor Complement C4 Miscellaneous Test Crossmatch 09/19/16 09/19/16 09/19/16 06:21 09:50 09:50 WBC 17.1 H RBC 3.49 L Hgb 9.0 L Hct 28.1 L MCV MCH 26 L MCHC RDW 20.8 H Plt Count Lymph % (Auto) 11.5 L [place] % (Auto) 7.5 H Lymph # [place] # 1.3 H Baso # Seg Neutrophils % 79.8 H Seg Neuts % (Manual) Lymphocytes % (Manual) Monocytes % (Manual) Eosinophils % (Manual) Basophils % (Manual) Nucleated RBC % Seg Neutrophils # 13.7 H Seg Neutrophils # Man Lymphocytes # (Manual) Monocytes # (Manual) Eosinophils # (Manual) Basophils # (Manual) PT INR Fibrinogen dRVVT Confirm Interp Factor V Activity POC ABG pH POC ABG pCO2 POC ABG pO2 ABG pO2 ABG HCO3 ABG Base Excess ABG Hemoglobin Oxyhemoglobin Sodium Potassium Chloride 108.6 H Carbon Dioxide 15 L BUN 125 H Creatinine 4.1 H Glucose 124 H POC Glucose 119 H Lactic Acid Calcium Phosphorus Magnesium Direct Bilirubin AST ALT Alkaline Phosphatase Lactate Dehydrogenase Troponin T C-Reactive Protein Total Protein Albumin Prealbumin Triglycerides Cholesterol LDL Cholesterol Direct HDL Cholesterol Urine pH Urine WBC (Auto) Urine Creatinine Urine Total Protein Fluid Total Protein Vancomycin Trough Rheumatoid Factor Complement C4 Miscellaneous Test Crossmatch 09/19/16 09/19/16 09/19/16 11:25 17:53 23:36 WBC RBC Hgb Hct MCV MCH MCHC RDW Plt Count Lymph % (Auto) [place] % (Auto) Lymph # [place] # Baso # Seg Neutrophils % Seg Neuts % (Manual) Lymphocytes % (Manual) Monocytes % (Manual) Eosinophils % (Manual) Basophils % (Manual) Nucleated RBC % Seg Neutrophils # Seg Neutrophils # Man Lymphocytes # (Manual) Monocytes # (Manual) Eosinophils # (Manual) Basophils # (Manual) PT INR Fibrinogen dRVVT Confirm Interp Factor V Activity POC ABG pH POC ABG pCO2 POC ABG pO2 ABG pO2 ABG HCO3 ABG Base Excess ABG Hemoglobin Oxyhemoglobin Sodium Potassium Chloride Carbon Dioxide BUN Creatinine Glucose POC Glucose 160 H 245 H 121 H Lactic Acid Calcium Phosphorus Magnesium Direct Bilirubin AST ALT Alkaline Phosphatase Lactate Dehydrogenase Troponin T C-Reactive Protein Total Protein Albumin Prealbumin Triglycerides Cholesterol LDL Cholesterol Direct HDL Cholesterol Urine pH Urine WBC (Auto) Urine Creatinine Urine Total Protein Fluid Total Protein Vancomycin Trough Rheumatoid Factor Complement C4 Miscellaneous Test Crossmatch 09/20/16 09/20/16 09/20/16 04:10 04:10 04:10 WBC 17.0 H RBC 3.21 L Hgb 8.2 L Hct 25.5 L MCV MCH 26 L MCHC RDW 20.9 H Plt Count Lymph % (Auto) [place] % (Auto) Lymph # [place] # Baso # Seg Neutrophils % Seg Neuts % (Manual) Lymphocytes % (Manual) Monocytes % (Manual) Eosinophils % (Manual) Basophils % (Manual) Nucleated RBC % Seg Neutrophils # Seg Neutrophils # Man Lymphocytes # (Manual) Monocytes # (Manual) Eosinophils # (Manual) Basophils # (Manual) PT INR Fibrinogen dRVVT Confirm Interp Factor V Activity POC ABG pH POC ABG pCO2 POC ABG pO2 ABG pO2 ABG HCO3 ABG Base Excess ABG Hemoglobin Oxyhemoglobin Sodium Potassium Chloride 111.0 H Carbon Dioxide 16 L BUN 129 H Creatinine 3.7 H Glucose 115 H POC Glucose Lactic Acid Calcium 8.2 L Phosphorus Magnesium Direct Bilirubin AST ALT Alkaline Phosphatase Lactate Dehydrogenase Troponin T C-Reactive Protein Total Protein Albumin Prealbumin Triglycerides 243 H Cholesterol LDL Cholesterol Direct HDL Cholesterol Urine pH Urine WBC (Auto) Urine Creatinine Urine Total Protein Fluid Total Protein Vancomycin Trough Rheumatoid Factor Complement C4 Miscellaneous Test Crossmatch 09/20/16 09/20/16 09/20/16 05:40 11:52 16:50 WBC RBC Hgb Hct MCV MCH MCHC RDW Plt Count Lymph % (Auto) [place] % (Auto) Lymph # [place] # Baso # Seg Neutrophils % Seg Neuts % (Manual) Lymphocytes % (Manual) Monocytes % (Manual) Eosinophils % (Manual) Basophils % (Manual) Nucleated RBC % Seg Neutrophils # Seg Neutrophils # Man Lymphocytes # (Manual) Monocytes # (Manual) Eosinophils # (Manual) Basophils # (Manual) PT INR Fibrinogen dRVVT Confirm Interp Factor V Activity POC ABG pH POC ABG pCO2 POC ABG pO2 ABG pO2 ABG HCO3 ABG Base Excess ABG Hemoglobin Oxyhemoglobin Sodium Potassium Chloride Carbon Dioxide BUN Creatinine Glucose POC Glucose 131 H 183 H 236 H Lactic Acid Calcium Phosphorus Magnesium Direct Bilirubin AST ALT Alkaline Phosphatase Lactate Dehydrogenase Troponin T C-Reactive Protein Total Protein Albumin Prealbumin Triglycerides Cholesterol LDL Cholesterol Direct HDL Cholesterol Urine pH Urine WBC (Auto) Urine Creatinine Urine Total Protein Fluid Total Protein Vancomycin Trough Rheumatoid Factor Complement C4 Miscellaneous Test Crossmatch 09/20/16 09/21/16 09/21/16 23:51 03:30 04:44 WBC RBC Hgb Hct MCV MCH MCHC RDW Plt Count Lymph % (Auto) [place] % (Auto) Lymph # [place] # Baso # Seg Neutrophils % Seg Neuts % (Manual) Lymphocytes % (Manual) Monocytes % (Manual) Eosinophils % (Manual) Basophils % (Manual) Nucleated RBC % Seg Neutrophils # Seg Neutrophils # Man Lymphocytes # (Manual) Monocytes # (Manual) Eosinophils # (Manual) Basophils # (Manual) PT INR Fibrinogen dRVVT Confirm Interp Factor V Activity POC ABG pH POC ABG pCO2 POC ABG pO2 ABG pO2 ABG HCO3 ABG Base Excess ABG Hemoglobin Oxyhemoglobin Sodium Potassium Chloride Carbon Dioxide BUN Creatinine Glucose POC Glucose 114 H 141 H Lactic Acid Calcium Phosphorus Magnesium 2.70 H Direct Bilirubin AST ALT Alkaline Phosphatase Lactate Dehydrogenase Troponin T C-Reactive Protein Total Protein Albumin Prealbumin Triglycerides Cholesterol LDL Cholesterol Direct HDL Cholesterol Urine pH Urine WBC (Auto) Urine Creatinine Urine Total Protein Fluid Total Protein Vancomycin Trough Rheumatoid Factor Complement C4 Miscellaneous Test Crossmatch 09/21/16 09/21/16 09/21/16 07:45 07:45 10:01 WBC 13.8 H RBC 2.94 L Hgb 7.5 L Hct 23.5 L MCV MCH 26 L MCHC RDW 21.2 H Plt Count Lymph % (Auto) 6.9 L [place] % (Auto) 9.4 H Lymph # 0.9 L [place] # 1.3 H Baso # Seg Neutrophils % 83.2 H Seg Neuts % (Manual) Lymphocytes % (Manual) Monocytes % (Manual) Eosinophils % (Manual) Basophils % (Manual) Nucleated RBC % Seg Neutrophils # 11.5 H Seg Neutrophils # Man Lymphocytes # (Manual) Monocytes # (Manual) Eosinophils # (Manual) Basophils # (Manual) PT INR Fibrinogen dRVVT Confirm Interp Factor V Activity POC ABG pH 7.308 L POC ABG pCO2 31.9 L POC ABG pO2 148 H ABG pO2 ABG HCO3 ABG Base Excess ABG Hemoglobin Oxyhemoglobin Sodium 147 H Potassium Chloride 114.2 H Carbon Dioxide 15 L BUN 120 H Creatinine 3.9 H Glucose 156 H POC Glucose Lactic Acid Calcium 8.2 L Phosphorus Magnesium Direct Bilirubin AST ALT Alkaline Phosphatase Lactate Dehydrogenase Troponin T C-Reactive Protein Total Protein Albumin Prealbumin Triglycerides Cholesterol LDL Cholesterol Direct HDL Cholesterol Urine pH Urine WBC (Auto) Urine Creatinine Urine Total Protein Fluid Total Protein Vancomycin Trough Rheumatoid Factor Complement C4 Miscellaneous Test Crossmatch 09/21/16 09/21/16 09/21/16 12:00 12:03 13:00 WBC RBC Hgb Hct MCV MCH MCHC RDW Plt Count Lymph % (Auto) [place] % (Auto) Lymph # [place] # Baso # Seg Neutrophils % Seg Neuts % (Manual) Lymphocytes % (Manual) Monocytes % (Manual) Eosinophils % (Manual) Basophils % (Manual) Nucleated RBC % Seg Neutrophils # Seg Neutrophils # Man Lymphocytes # (Manual) Monocytes # (Manual) Eosinophils # (Manual) Basophils # (Manual) PT INR Fibrinogen dRVVT Confirm Interp Factor V Activity POC ABG pH POC ABG pCO2 POC ABG pO2 ABG pO2 ABG HCO3 ABG Base Excess ABG Hemoglobin Oxyhemoglobin Sodium Potassium Chloride Carbon Dioxide BUN Creatinine Glucose POC Glucose 163 H Lactic Acid Calcium Phosphorus Magnesium Direct Bilirubin AST ALT Alkaline Phosphatase Lactate Dehydrogenase Troponin T C-Reactive Protein Total Protein Albumin Prealbumin Triglycerides Cholesterol LDL Cholesterol Direct HDL Cholesterol Urine pH Urine WBC (Auto) Urine Creatinine 54.8 H Urine Total Protein Fluid Total Protein Vancomycin Trough 2.3 L Rheumatoid Factor Complement C4 Miscellaneous Test Crossmatch 09/21/16 09/21/16 09/22/16 16:51 23:17 06:27 WBC RBC Hgb Hct MCV MCH MCHC RDW Plt Count Lymph % (Auto) [place] % (Auto) Lymph # [place] # Baso # Seg Neutrophils % Seg Neuts % (Manual) Lymphocytes % (Manual) Monocytes % (Manual) Eosinophils % (Manual) Basophils % (Manual) Nucleated RBC % Seg Neutrophils # Seg Neutrophils # Man Lymphocytes # (Manual) Monocytes # (Manual) Eosinophils # (Manual) Basophils # (Manual) PT INR Fibrinogen dRVVT Confirm Interp Factor V Activity POC ABG pH POC ABG pCO2 POC ABG pO2 ABG pO2 ABG HCO3 ABG Base Excess ABG Hemoglobin Oxyhemoglobin Sodium Potassium Chloride Carbon Dioxide BUN Creatinine Glucose POC Glucose 206 H 114 H 115 H Lactic Acid Calcium Phosphorus Magnesium Direct Bilirubin AST ALT Alkaline Phosphatase Lactate Dehydrogenase Troponin T C-Reactive Protein Total Protein Albumin Prealbumin Triglycerides Cholesterol LDL Cholesterol Direct HDL Cholesterol Urine pH Urine WBC (Auto) Urine Creatinine Urine Total Protein Fluid Total Protein Vancomycin Trough Rheumatoid Factor Complement C4 Miscellaneous Test Crossmatch 09/22/16 09/22/16 09/22/16 07:50 07:50 12:00 WBC 17.8 H RBC 3.04 L Hgb 8.0 L Hct 24.7 L MCV MCH 26 L MCHC RDW 21.6 H Plt Count Lymph % (Auto) [place] % (Auto) Lymph # [place] # Baso # Seg Neutrophils % Seg Neuts % (Manual) Lymphocytes % (Manual) Monocytes % (Manual) Eosinophils % (Manual) Basophils % (Manual) Nucleated RBC % Seg Neutrophils # Seg Neutrophils # Man Lymphocytes # (Manual) Monocytes # (Manual) Eosinophils # (Manual) Basophils # (Manual) PT INR Fibrinogen dRVVT Confirm Interp Factor V Activity POC ABG pH POC ABG pCO2 POC ABG pO2 ABG pO2 ABG HCO3 ABG Base Excess ABG Hemoglobin Oxyhemoglobin Sodium 150 H Potassium Chloride 118.2 H Carbon Dioxide 14 L BUN 111 H Creatinine 3.7 H Glucose 157 H POC Glucose 183 H Lactic Acid Calcium Phosphorus Magnesium Direct Bilirubin AST ALT Alkaline Phosphatase Lactate Dehydrogenase Troponin T C-Reactive Protein Total Protein Albumin Prealbumin Triglycerides Cholesterol LDL Cholesterol Direct HDL Cholesterol Urine pH Urine WBC (Auto) Urine Creatinine Urine Total Protein Fluid Total Protein Vancomycin Trough Rheumatoid Factor Complement C4 Miscellaneous Test Crossmatch 09/22/16 09/22/16 09/23/16 17:29 23:10 05:00 WBC 19.2 H RBC 3.13 L Hgb 8.0 L Hct 25.2 L MCV MCH 26 L MCHC RDW 22.1 H Plt Count Lymph % (Auto) [place] % (Auto) Lymph # [place] # Baso # Seg Neutrophils % Seg Neuts % (Manual) 92.0 H Lymphocytes % (Manual) 3.0 L Monocytes % (Manual) Eosinophils % (Manual) Basophils % (Manual) Nucleated RBC % Seg Neutrophils # Seg Neutrophils # Man 17.7 H Lymphocytes # (Manual) 0.6 L Monocytes # (Manual) Eosinophils # (Manual) Basophils # (Manual) PT INR Fibrinogen dRVVT Confirm Interp Factor V Activity POC ABG pH POC ABG pCO2 POC ABG pO2 ABG pO2 ABG HCO3 ABG Base Excess ABG Hemoglobin Oxyhemoglobin Sodium Potassium Chloride Carbon Dioxide BUN Creatinine Glucose POC Glucose 197 H 169 H Lactic Acid Calcium Phosphorus Magnesium Direct Bilirubin AST ALT Alkaline Phosphatase Lactate Dehydrogenase Troponin T C-Reactive Protein Total Protein Albumin Prealbumin Triglycerides Cholesterol LDL Cholesterol Direct HDL Cholesterol Urine pH Urine WBC (Auto) Urine Creatinine Urine Total Protein Fluid Total Protein Vancomycin Trough Rheumatoid Factor Complement C4 Miscellaneous Test Crossmatch 09/23/16 09/23/16 09/23/16 05:00 05:00 05:10 WBC RBC Hgb Hct MCV MCH MCHC RDW Plt Count Lymph % (Auto) [place] % (Auto) Lymph # [place] # Baso # Seg Neutrophils % Seg Neuts % (Manual) Lymphocytes % (Manual) Monocytes % (Manual) Eosinophils % (Manual) Basophils % (Manual) Nucleated RBC % Seg Neutrophils # Seg Neutrophils # Man Lymphocytes # (Manual) Monocytes # (Manual) Eosinophils # (Manual) Basophils # (Manual) PT INR Fibrinogen dRVVT Confirm Interp Factor V Activity POC ABG pH POC ABG pCO2 POC ABG pO2 ABG pO2 ABG HCO3 ABG Base Excess ABG Hemoglobin Oxyhemoglobin Sodium 147 H Potassium 3.2 L Chloride 115.7 H Carbon Dioxide 13 L BUN 111 H Creatinine 3.8 H Glucose 194 H POC Glucose 188 H Lactic Acid Calcium 7.3 L D Phosphorus Magnesium Direct Bilirubin AST ALT Alkaline Phosphatase Lactate Dehydrogenase Troponin T C-Reactive Protein 3.20 H Total Protein Albumin Prealbumin Triglycerides Cholesterol LDL Cholesterol Direct HDL Cholesterol Urine pH Urine WBC (Auto) Urine Creatinine Urine Total Protein Fluid Total Protein Vancomycin Trough Rheumatoid Factor Complement C4 Miscellaneous Test Crossmatch 09/23/16 09/23/16 09/23/16 11:37 12:29 18:01 WBC RBC Hgb Hct MCV MCH MCHC RDW Plt Count Lymph % (Auto) [place] % (Auto) Lymph # [place] # Baso # Seg Neutrophils % Seg Neuts % (Manual) Lymphocytes % (Manual) Monocytes % (Manual) Eosinophils % (Manual) Basophils % (Manual) Nucleated RBC % Seg Neutrophils # Seg Neutrophils # Man Lymphocytes # (Manual) Monocytes # (Manual) Eosinophils # (Manual) Basophils # (Manual) PT INR Fibrinogen dRVVT Confirm Interp Factor V Activity POC ABG pH POC ABG pCO2 18.9 L POC ABG pO2 143 H ABG pO2 ABG HCO3 ABG Base Excess ABG Hemoglobin Oxyhemoglobin Sodium Potassium Chloride Carbon Dioxide BUN Creatinine Glucose POC Glucose 153 H 108 H Lactic Acid Calcium Phosphorus Magnesium Direct Bilirubin AST ALT Alkaline Phosphatase Lactate Dehydrogenase Troponin T C-Reactive Protein Total Protein Albumin Prealbumin Triglycerides Cholesterol LDL Cholesterol Direct HDL Cholesterol Urine pH Urine WBC (Auto) Urine Creatinine Urine Total Protein Fluid Total Protein Vancomycin Trough Rheumatoid Factor Complement C4 Miscellaneous Test Crossmatch 09/23/16 09/23/16 09/24/16 21:19 23:43 05:16 WBC RBC Hgb Hct MCV MCH MCHC RDW Plt Count Lymph % (Auto) [place] % (Auto) Lymph # [place] # Baso # Seg Neutrophils % Seg Neuts % (Manual) Lymphocytes % (Manual) Monocytes % (Manual) Eosinophils % (Manual) Basophils % (Manual) Nucleated RBC % Seg Neutrophils # Seg Neutrophils # Man Lymphocytes # (Manual) Monocytes # (Manual) Eosinophils # (Manual) Basophils # (Manual) PT INR Fibrinogen dRVVT Confirm Interp Factor V Activity POC ABG pH POC ABG pCO2 17.3 L POC ABG pO2 112 H ABG pO2 ABG HCO3 ABG Base Excess ABG Hemoglobin Oxyhemoglobin Sodium Potassium Chloride Carbon Dioxide BUN Creatinine Glucose POC Glucose 143 H 164 H Lactic Acid Calcium Phosphorus Magnesium Direct Bilirubin AST ALT Alkaline Phosphatase Lactate Dehydrogenase Troponin T C-Reactive Protein Total Protein Albumin Prealbumin Triglycerides Cholesterol LDL Cholesterol Direct HDL Cholesterol Urine pH Urine WBC (Auto) Urine Creatinine Urine Total Protein Fluid Total Protein Vancomycin Trough Rheumatoid Factor Complement C4 Miscellaneous Test Crossmatch 09/24/16 09/24/16 09/24/16 05:21 11:58 17:06 WBC RBC Hgb Hct MCV MCH MCHC RDW Plt Count Lymph % (Auto) [place] % (Auto) Lymph # [place] # Baso # Seg Neutrophils % Seg Neuts % (Manual) Lymphocytes % (Manual) Monocytes % (Manual) Eosinophils % (Manual) Basophils % (Manual) Nucleated RBC % Seg Neutrophils # Seg Neutrophils # Man Lymphocytes # (Manual) Monocytes # (Manual) Eosinophils # (Manual) Basophils # (Manual) PT INR Fibrinogen dRVVT Confirm Interp Factor V Activity POC ABG pH POC ABG pCO2 POC ABG pO2 ABG pO2 ABG HCO3 ABG Base Excess ABG Hemoglobin Oxyhemoglobin Sodium Potassium Chloride Carbon Dioxide 10 L BUN 103 H Creatinine 4.3 H Glucose 163 H POC Glucose 173 H 167 H Lactic Acid Calcium 6.5 L Phosphorus Magnesium Direct Bilirubin AST ALT Alkaline Phosphatase Lactate Dehydrogenase Troponin T C-Reactive Protein Total Protein Albumin Prealbumin Triglycerides Cholesterol LDL Cholesterol Direct HDL Cholesterol Urine pH Urine WBC (Auto) Urine Creatinine Urine Total Protein Fluid Total Protein Vancomycin Trough Rheumatoid Factor Complement C4 Miscellaneous Test Crossmatch 09/24/16 09/24/16 09/24/16 20:15 21:02 23:48 WBC RBC Hgb Hct MCV MCH MCHC RDW Plt Count Lymph % (Auto) [place] % (Auto) Lymph # [place] # Baso # Seg Neutrophils % Seg Neuts % (Manual) Lymphocytes % (Manual) Monocytes % (Manual) Eosinophils % (Manual) Basophils % (Manual) Nucleated RBC % Seg Neutrophils # Seg Neutrophils # Man Lymphocytes # (Manual) Monocytes # (Manual) Eosinophils # (Manual) Basophils # (Manual) PT INR Fibrinogen dRVVT Confirm Interp Factor V Activity POC ABG pH 7.288 L POC ABG pCO2 30.2 L 21.5 L POC ABG pO2 32 L 39 L ABG pO2 ABG HCO3 ABG Base Excess ABG Hemoglobin Oxyhemoglobin Sodium Potassium Chloride Carbon Dioxide BUN Creatinine Glucose POC Glucose 109 H Lactic Acid Calcium Phosphorus Magnesium Direct Bilirubin AST ALT Alkaline Phosphatase Lactate Dehydrogenase Troponin T C-Reactive Protein Total Protein Albumin Prealbumin Triglycerides Cholesterol LDL Cholesterol Direct HDL Cholesterol Urine pH Urine WBC (Auto) Urine Creatinine Urine Total Protein Fluid Total Protein Vancomycin Trough Rheumatoid Factor Complement C4 Miscellaneous Test Crossmatch 09/25/16 09/25/16 09/25/16 04:20 04:20 04:20 WBC RBC 2.58 L Hgb 7.0 L Hct 21.0 L MCV MCH 27 L MCHC RDW 23.8 H Plt Count Lymph % (Auto) [place] % (Auto) Lymph # [place] # Baso # Seg Neutrophils % Seg Neuts % (Manual) Lymphocytes % (Manual) 12.0 L Monocytes % (Manual) Eosinophils % (Manual) 7.0 H Basophils % (Manual) 2.0 H Nucleated RBC % Seg Neutrophils # Seg Neutrophils # Man Lymphocytes # (Manual) 0.9 L Monocytes # (Manual) Eosinophils # (Manual) 0.5 H Basophils # (Manual) PT INR Fibrinogen dRVVT Confirm Interp Factor V Activity POC ABG pH POC ABG pCO2 POC ABG pO2 ABG pO2 ABG HCO3 ABG Base Excess ABG Hemoglobin Oxyhemoglobin Sodium Potassium Chloride Carbon Dioxide 15 L BUN 72 H Creatinine 3.8 H Glucose POC Glucose Lactic Acid Calcium 6.0 L Phosphorus 4.60 H Magnesium 1.60 L Direct Bilirubin AST ALT Alkaline Phosphatase Lactate Dehydrogenase Troponin T C-Reactive Protein Total Protein Albumin Prealbumin Triglycerides Cholesterol LDL Cholesterol Direct HDL Cholesterol Urine pH Urine WBC (Auto) Urine Creatinine Urine Total Protein Fluid Total Protein Vancomycin Trough Rheumatoid Factor Complement C4 Miscellaneous Test Crossmatch 09/25/16 09/25/16 09/25/16 04:57 08:02 10:30 WBC RBC Hgb Hct MCV MCH MCHC RDW Plt Count Lymph % (Auto) [place] % (Auto) Lymph # [place] # Baso # Seg Neutrophils % Seg Neuts % (Manual) Lymphocytes % (Manual) Monocytes % (Manual) Eosinophils % (Manual) Basophils % (Manual) Nucleated RBC % Seg Neutrophils # Seg Neutrophils # Man Lymphocytes # (Manual) Monocytes # (Manual) Eosinophils # (Manual) Basophils # (Manual) PT INR Fibrinogen dRVVT Confirm Interp Factor V Activity POC ABG pH POC ABG pCO2 24.7 L POC ABG pO2 152 H ABG pO2 ABG HCO3 ABG Base Excess ABG Hemoglobin Oxyhemoglobin Sodium Potassium Chloride Carbon Dioxide BUN Creatinine Glucose POC Glucose 113 H Lactic Acid Calcium Phosphorus Magnesium Direct Bilirubin AST ALT Alkaline Phosphatase Lactate Dehydrogenase Troponin T C-Reactive Protein Total Protein Albumin Prealbumin Triglycerides Cholesterol LDL Cholesterol Direct HDL Cholesterol Urine pH Urine WBC (Auto) Urine Creatinine Urine Total Protein Fluid Total Protein Vancomycin Trough Rheumatoid Factor Complement C4 Miscellaneous Test Crossmatch See Detail 09/25/16 09/25/16 09/25/16 12:05 17:44 23:47 WBC RBC Hgb Hct MCV MCH MCHC RDW Plt Count Lymph % (Auto) [place] % (Auto) Lymph # [place] # Baso # Seg Neutrophils % Seg Neuts % (Manual) Lymphocytes % (Manual) Monocytes % (Manual) Eosinophils % (Manual) Basophils % (Manual) Nucleated RBC % Seg Neutrophils # Seg Neutrophils # Man Lymphocytes # (Manual) Monocytes # (Manual) Eosinophils # (Manual) Basophils # (Manual) PT INR Fibrinogen dRVVT Confirm Interp Factor V Activity POC ABG pH POC ABG pCO2 POC ABG pO2 ABG pO2 ABG HCO3 ABG Base Excess ABG Hemoglobin Oxyhemoglobin Sodium Potassium Chloride Carbon Dioxide BUN Creatinine Glucose POC Glucose 117 H 119 H 150 H Lactic Acid Calcium Phosphorus Magnesium Direct Bilirubin AST ALT Alkaline Phosphatase Lactate Dehydrogenase Troponin T C-Reactive Protein Total Protein Albumin Prealbumin Triglycerides Cholesterol LDL Cholesterol Direct HDL Cholesterol Urine pH Urine WBC (Auto) Urine Creatinine Urine Total Protein Fluid Total Protein Vancomycin Trough Rheumatoid Factor Complement C4 Miscellaneous Test Crossmatch 09/26/16 09/26/16 09/26/16 04:25 04:25 04:25 WBC RBC 2.65 L Hgb 7.4 L Hct 21.6 L MCV MCH MCHC RDW 22.5 H Plt Count Lymph % (Auto) [place] % (Auto) Lymph # [place] # Baso # Seg Neutrophils % Seg Neuts % (Manual) Lymphocytes % (Manual) 6.0 L Monocytes % (Manual) Eosinophils % (Manual) 11.0 H Basophils % (Manual) Nucleated RBC % Seg Neutrophils # Seg Neutrophils # Man Lymphocytes # (Manual) 0.4 L Monocytes # (Manual) Eosinophils # (Manual) 0.6 H Basophils # (Manual) PT INR Fibrinogen dRVVT Confirm Interp Factor V Activity POC ABG pH POC ABG pCO2 POC ABG pO2 ABG pO2 ABG HCO3 ABG Base Excess ABG Hemoglobin Oxyhemoglobin Sodium Potassium Chloride 97.0 L Carbon Dioxide 19 L BUN 43 H Creatinine 2.6 H Glucose 130 H POC Glucose Lactic Acid 4.40 H* Calcium 6.7 L Phosphorus Magnesium Direct Bilirubin AST ALT Alkaline Phosphatase Lactate Dehydrogenase Troponin T C-Reactive Protein Total Protein Albumin Prealbumin Triglycerides Cholesterol LDL Cholesterol Direct HDL Cholesterol Urine pH Urine WBC (Auto) Urine Creatinine Urine Total Protein Fluid Total Protein Vancomycin Trough Rheumatoid Factor Complement C4 Miscellaneous Test Crossmatch 09/26/16 09/26/16 09/26/16 05:20 11:44 12:12 WBC RBC Hgb Hct MCV MCH MCHC RDW Plt Count Lymph % (Auto) [place] % (Auto) Lymph # [place] # Baso # Seg Neutrophils % Seg Neuts % (Manual) Lymphocytes % (Manual) Monocytes % (Manual) Eosinophils % (Manual) Basophils % (Manual) Nucleated RBC % Seg Neutrophils # Seg Neutrophils # Man Lymphocytes # (Manual) Monocytes # (Manual) Eosinophils # (Manual) Basophils # (Manual) PT INR Fibrinogen dRVVT Confirm Interp Factor V Activity POC ABG pH POC ABG pCO2 27.0 L POC ABG pO2 69 L ABG pO2 ABG HCO3 ABG Base Excess ABG Hemoglobin Oxyhemoglobin Sodium Potassium Chloride Carbon Dioxide BUN Creatinine Glucose POC Glucose 121 H 128 H Lactic Acid Calcium Phosphorus Magnesium Direct Bilirubin AST ALT Alkaline Phosphatase Lactate Dehydrogenase Troponin T C-Reactive Protein Total Protein Albumin Prealbumin Triglycerides Cholesterol LDL Cholesterol Direct HDL Cholesterol Urine pH Urine WBC (Auto) Urine Creatinine Urine Total Protein Fluid Total Protein Vancomycin Trough Rheumatoid Factor Complement C4 Miscellaneous Test Crossmatch 09/26/16 09/26/16 09/27/16 18:31 23:40 08:20 WBC RBC Hgb Hct MCV MCH MCHC RDW Plt Count Lymph % (Auto) [place] % (Auto) Lymph # [place] # Baso # Seg Neutrophils % Seg Neuts % (Manual) Lymphocytes % (Manual) Monocytes % (Manual) Eosinophils % (Manual) Basophils % (Manual) Nucleated RBC % Seg Neutrophils # Seg Neutrophils # Man Lymphocytes # (Manual) Monocytes # (Manual) Eosinophils # (Manual) Basophils # (Manual) PT INR Fibrinogen dRVVT Confirm Interp Factor V Activity POC ABG pH POC ABG pCO2 POC ABG pO2 ABG pO2 ABG HCO3 ABG Base Excess ABG Hemoglobin Oxyhemoglobin Sodium Potassium Chloride Carbon Dioxide BUN Creatinine Glucose POC Glucose 120 H 133 H Lactic Acid 4.10 H* Calcium Phosphorus Magnesium Direct Bilirubin AST ALT Alkaline Phosphatase Lactate Dehydrogenase Troponin T C-Reactive Protein Total Protein Albumin Prealbumin Triglycerides Cholesterol LDL Cholesterol Direct HDL Cholesterol Urine pH Urine WBC (Auto) Urine Creatinine Urine Total Protein Fluid Total Protein Vancomycin Trough Rheumatoid Factor Complement C4 Miscellaneous Test Crossmatch 09/27/16 09/27/16 09/27/16 11:23 15:00 18:15 WBC RBC Hgb Hct MCV MCH MCHC RDW Plt Count Lymph % (Auto) [place] % (Auto) Lymph # [place] # Baso # Seg Neutrophils % Seg Neuts % (Manual) Lymphocytes % (Manual) Monocytes % (Manual) Eosinophils % (Manual) Basophils % (Manual) Nucleated RBC % Seg Neutrophils # Seg Neutrophils # Man Lymphocytes # (Manual) Monocytes # (Manual) Eosinophils # (Manual) Basophils # (Manual) PT INR Fibrinogen dRVVT Confirm Interp Factor V Activity POC ABG pH 7.459 H POC ABG pCO2 27.1 L POC ABG pO2 140 H ABG pO2 ABG HCO3 ABG Base Excess ABG Hemoglobin Oxyhemoglobin Sodium Potassium Chloride Carbon Dioxide BUN Creatinine Glucose POC Glucose 114 H 127 H Lactic Acid Calcium Phosphorus Magnesium Direct Bilirubin AST ALT Alkaline Phosphatase Lactate Dehydrogenase Troponin T C-Reactive Protein Total Protein Albumin Prealbumin Triglycerides Cholesterol LDL Cholesterol Direct HDL Cholesterol Urine pH Urine WBC (Auto) Urine Creatinine Urine Total Protein Fluid Total Protein Vancomycin Trough Rheumatoid Factor Complement C4 Miscellaneous Test Crossmatch 09/27/16 09/27/16 09/28/16 Unknown Unknown 03:45 WBC RBC 2.49 L Hgb 6.8 L Hct 20.7 L MCV MCH 27 L MCHC RDW 22.1 H Plt Count Lymph % (Auto) [place] % (Auto) Lymph # [place] # Baso # Seg Neutrophils % Seg Neuts % (Manual) 32.0 L Lymphocytes % (Manual) 12.0 L Monocytes % (Manual) 11.0 H Eosinophils % (Manual) 10.0 H Basophils % (Manual) Nucleated RBC % Seg Neutrophils # Seg Neutrophils # Man Lymphocytes # (Manual) 1.0 L Monocytes # (Manual) 0.9 H Eosinophils # (Manual) 0.8 H Basophils # (Manual) PT INR Fibrinogen dRVVT Confirm Interp Factor V Activity POC ABG pH POC ABG pCO2 POC ABG pO2 ABG pO2 ABG HCO3 ABG Base Excess ABG Hemoglobin Oxyhemoglobin Sodium 135 L 135 L Potassium 3.5 L Chloride 93.6 L 94.4 L Carbon Dioxide 17 L 21 L BUN 45 H 28 H Creatinine 3.3 H 2.5 H Glucose 106 H POC Glucose Lactic Acid Calcium 7.3 L 7.1 L Phosphorus Magnesium Direct Bilirubin AST ALT Alkaline Phosphatase Lactate Dehydrogenase Troponin T C-Reactive Protein Total Protein Albumin Prealbumin Triglycerides Cholesterol LDL Cholesterol Direct HDL Cholesterol Urine pH Urine WBC (Auto) Urine Creatinine Urine Total Protein Fluid Total Protein Vancomycin Trough Rheumatoid Factor Complement C4 Miscellaneous Test Crossmatch 09/28/16 09/28/16 09/28/16 03:45 07:25 11:58 WBC 13.3 H RBC 3.01 L Hgb 8.4 L Hct 25.0 L MCV MCH MCHC RDW 20.5 H Plt Count 128 L Lymph % (Auto) [place] % (Auto) Lymph # [place] # Baso # Seg Neutrophils % Seg Neuts % (Manual) Lymphocytes % (Manual) 7.0 L Monocytes % (Manual) Eosinophils % (Manual) 6.0 H Basophils % (Manual) Nucleated RBC % Seg Neutrophils # Seg Neutrophils # Man Lymphocytes # (Manual) 0.9 L Monocytes # (Manual) Eosinophils # (Manual) 0.8 H Basophils # (Manual) PT INR Fibrinogen dRVVT Confirm Interp Factor V Activity POC ABG pH POC ABG pCO2 POC ABG pO2 ABG pO2 ABG HCO3 ABG Base Excess ABG Hemoglobin Oxyhemoglobin Sodium Potassium Chloride Carbon Dioxide BUN Creatinine Glucose POC Glucose 121 H Lactic Acid 4.50 H* Calcium Phosphorus Magnesium Direct Bilirubin AST ALT Alkaline Phosphatase Lactate Dehydrogenase Troponin T C-Reactive Protein Total Protein Albumin Prealbumin Triglycerides Cholesterol LDL Cholesterol Direct HDL Cholesterol Urine pH Urine WBC (Auto) Urine Creatinine Urine Total Protein Fluid Total Protein Vancomycin Trough Rheumatoid Factor Complement C4 Miscellaneous Test Crossmatch 09/29/16 09/29/16 09/29/16 06:45 06:45 06:45 WBC 14.9 H RBC 2.74 L Hgb 7.6 L Hct 23.2 L MCV MCH MCHC RDW 20.5 H Plt Count 81 L Lymph % (Auto) [place] % (Auto) Lymph # [place] # Baso # Seg Neutrophils % Seg Neuts % (Manual) 81.0 H Lymphocytes % (Manual) 4.0 L Monocytes % (Manual) Eosinophils % (Manual) Basophils % (Manual) Nucleated RBC % Seg Neutrophils # Seg Neutrophils # Man 12.1 H Lymphocytes # (Manual) 0.6 L Monocytes # (Manual) Eosinophils # (Manual) Basophils # (Manual) PT INR Fibrinogen dRVVT Confirm Interp Factor V Activity POC ABG pH POC ABG pCO2 POC ABG pO2 ABG pO2 ABG HCO3 ABG Base Excess ABG Hemoglobin Oxyhemoglobin Sodium 133 L Potassium 3.4 L Chloride 92.5 L Carbon Dioxide 21 L BUN 33 H Creatinine 3.0 H Glucose POC Glucose Lactic Acid Calcium 6.6 L Phosphorus Magnesium 1.40 L Direct Bilirubin 0.9 H AST ALT Alkaline Phosphatase Lactate Dehydrogenase Troponin T C-Reactive Protein Total Protein 4.3 L Albumin 1.3 L Prealbumin Triglycerides Cholesterol LDL Cholesterol Direct HDL Cholesterol Urine pH Urine WBC (Auto) Urine Creatinine Urine Total Protein Fluid Total Protein Vancomycin Trough Rheumatoid Factor Complement C4 Miscellaneous Test Crossmatch 09/29/16 09/29/16 09/30/16 17:52 20:12 00:07 WBC RBC Hgb Hct MCV MCH MCHC RDW Plt Count Lymph % (Auto) [place] % (Auto) Lymph # [place] # Baso # Seg Neutrophils % Seg Neuts % (Manual) Lymphocytes % (Manual) Monocytes % (Manual) Eosinophils % (Manual) Basophils % (Manual) Nucleated RBC % Seg Neutrophils # Seg Neutrophils # Man Lymphocytes # (Manual) Monocytes # (Manual) Eosinophils # (Manual) Basophils # (Manual) PT INR Fibrinogen dRVVT Confirm Interp Factor V Activity POC ABG pH POC ABG pCO2 POC ABG pO2 ABG pO2 ABG HCO3 ABG Base Excess ABG Hemoglobin Oxyhemoglobin Sodium Potassium Chloride Carbon Dioxide BUN Creatinine Glucose POC Glucose 50 L 51 L Lactic Acid Calcium Phosphorus Magnesium Direct Bilirubin AST ALT Alkaline Phosphatase Lactate Dehydrogenase Troponin T 0.204 H* C-Reactive Protein Total Protein Albumin Prealbumin Triglycerides Cholesterol 31 L LDL Cholesterol Direct 4 L HDL Cholesterol 3 L Urine pH Urine WBC (Auto) Urine Creatinine Urine Total Protein Fluid Total Protein Vancomycin Trough Rheumatoid Factor Complement C4 Miscellaneous Test Crossmatch 09/30/16 09/30/16 09/30/16 01:30 05:15 06:10 WBC RBC Hgb Hct MCV MCH MCHC RDW Plt Count Lymph % (Auto) [place] % (Auto) Lymph # [place] # Baso # Seg Neutrophils % Seg Neuts % (Manual) Lymphocytes % (Manual) Monocytes % (Manual) Eosinophils % (Manual) Basophils % (Manual) Nucleated RBC % Seg Neutrophils # Seg Neutrophils # Man Lymphocytes # (Manual) Monocytes # (Manual) Eosinophils # (Manual) Basophils # (Manual) PT INR Fibrinogen dRVVT Confirm Interp Factor V Activity POC ABG pH POC ABG pCO2 POC ABG pO2 ABG pO2 ABG HCO3 ABG Base Excess ABG Hemoglobin Oxyhemoglobin Sodium 133 L Potassium 3.2 L Chloride 93.2 L Carbon Dioxide 19 L BUN 36 H Creatinine 3.2 H Glucose 104 H POC Glucose 167 H 146 H Lactic Acid Calcium 6.4 L Phosphorus Magnesium 1.60 L Direct Bilirubin AST ALT Alkaline Phosphatase Lactate Dehydrogenase Troponin T C-Reactive Protein Total Protein Albumin Prealbumin Triglycerides Cholesterol LDL Cholesterol Direct HDL Cholesterol Urine pH Urine WBC (Auto) Urine Creatinine Urine Total Protein Fluid Total Protein Vancomycin Trough Rheumatoid Factor Complement C4 Miscellaneous Test Crossmatch 09/30/16 09/30/16 09/30/16 11:26 13:39 18:38 WBC RBC Hgb Hct MCV MCH MCHC RDW Plt Count Lymph % (Auto) [place] % (Auto) Lymph # [place] # Baso # Seg Neutrophils % Seg Neuts % (Manual) Lymphocytes % (Manual) Monocytes % (Manual) Eosinophils % (Manual) Basophils % (Manual) Nucleated RBC % Seg Neutrophils # Seg Neutrophils # Man Lymphocytes # (Manual) Monocytes # (Manual) Eosinophils # (Manual) Basophils # (Manual) PT INR Fibrinogen dRVVT Confirm Interp Factor V Activity POC ABG pH 7.479 H POC ABG pCO2 29.8 L POC ABG pO2 117 H ABG pO2 ABG HCO3 ABG Base Excess ABG Hemoglobin Oxyhemoglobin Sodium Potassium Chloride Carbon Dioxide BUN Creatinine Glucose POC Glucose 140 H 122 H Lactic Acid Calcium Phosphorus Magnesium Direct Bilirubin AST ALT Alkaline Phosphatase Lactate Dehydrogenase Troponin T C-Reactive Protein Total Protein Albumin Prealbumin Triglycerides Cholesterol LDL Cholesterol Direct HDL Cholesterol Urine pH Urine WBC (Auto) Urine Creatinine Urine Total Protein Fluid Total Protein Vancomycin Trough Rheumatoid Factor Complement C4 Miscellaneous Test Crossmatch 10/01/16 10/01/16 10/01/16 06:00 06:00 12:37 WBC 12.6 H RBC 2.75 L Hgb 7.3 L Hct 23.3 L MCV MCH 27 L MCHC RDW 20.6 H Plt Count 72 L Lymph % (Auto) [place] % (Auto) Lymph # [place] # Baso # Seg Neutrophils % Seg Neuts % (Manual) 31.0 L Lymphocytes % (Manual) 8.0 L Monocytes % (Manual) Eosinophils % (Manual) Basophils % (Manual) Nucleated RBC % 3.0 H Seg Neutrophils # Seg Neutrophils # Man Lymphocytes # (Manual) 1.0 L Monocytes # (Manual) Eosinophils # (Manual) Basophils # (Manual) PT INR Fibrinogen dRVVT Confirm Interp Factor V Activity POC ABG pH POC ABG pCO2 POC ABG pO2 ABG pO2 ABG HCO3 ABG Base Excess ABG Hemoglobin Oxyhemoglobin Sodium 127 L Potassium Chloride 86.8 L Carbon Dioxide 20 L BUN 42 H Creatinine 3.5 H Glucose POC Glucose 65 L Lactic Acid Calcium 7.0 L Phosphorus Magnesium Direct Bilirubin AST ALT Alkaline Phosphatase Lactate Dehydrogenase Troponin T C-Reactive Protein Total Protein Albumin Prealbumin Triglycerides Cholesterol LDL Cholesterol Direct HDL Cholesterol Urine pH Urine WBC (Auto) Urine Creatinine Urine Total Protein Fluid Total Protein Vancomycin Trough Rheumatoid Factor Complement C4 Miscellaneous Test Crossmatch 10/01/16 10/01/16 10/02/16 17:39 23:32 00:59 WBC RBC Hgb Hct MCV MCH MCHC RDW Plt Count Lymph % (Auto) [place] % (Auto) Lymph # [place] # Baso # Seg Neutrophils % Seg Neuts % (Manual) Lymphocytes % (Manual) Monocytes % (Manual) Eosinophils % (Manual) Basophils % (Manual) Nucleated RBC % Seg Neutrophils # Seg Neutrophils # Man Lymphocytes # (Manual) Monocytes # (Manual) Eosinophils # (Manual) Basophils # (Manual) PT INR Fibrinogen dRVVT Confirm Interp Factor V Activity POC ABG pH POC ABG pCO2 POC ABG pO2 ABG pO2 ABG HCO3 ABG Base Excess ABG Hemoglobin Oxyhemoglobin Sodium Potassium Chloride Carbon Dioxide BUN Creatinine Glucose POC Glucose 107 H 52 L 145 H Lactic Acid Calcium Phosphorus Magnesium Direct Bilirubin AST ALT Alkaline Phosphatase Lactate Dehydrogenase Troponin T C-Reactive Protein Total Protein Albumin Prealbumin Triglycerides Cholesterol LDL Cholesterol Direct HDL Cholesterol Urine pH Urine WBC (Auto) Urine Creatinine Urine Total Protein Fluid Total Protein Vancomycin Trough Rheumatoid Factor Complement C4 Miscellaneous Test Crossmatch 10/02/16 10/02/16 10/02/16 10:30 10:50 10:50 WBC 14.7 H RBC 2.76 L Hgb 7.4 L Hct 23.6 L MCV MCH 27 L MCHC RDW 20.2 H Plt Count 79 L Lymph % (Auto) [place] % (Auto) Lymph # [place] # Baso # Seg Neutrophils % Seg Neuts % (Manual) 86.0 H Lymphocytes % (Manual) 6.0 L Monocytes % (Manual) Eosinophils % (Manual) Basophils % (Manual) Nucleated RBC % Seg Neutrophils # Seg Neutrophils # Man 12.6 H Lymphocytes # (Manual) 0.9 L Monocytes # (Manual) Eosinophils # (Manual) Basophils # (Manual) PT INR Fibrinogen dRVVT Confirm Interp Factor V Activity POC ABG pH 7.486 H POC ABG pCO2 30.1 L POC ABG pO2 108 H ABG pO2 ABG HCO3 ABG Base Excess ABG Hemoglobin Oxyhemoglobin Sodium 131 L Potassium 3.4 L Chloride 89.9 L Carbon Dioxide BUN 26 H Creatinine 2.6 H Glucose POC Glucose Lactic Acid Calcium 7.0 L Phosphorus Magnesium Direct Bilirubin AST ALT Alkaline Phosphatase Lactate Dehydrogenase Troponin T C-Reactive Protein Total Protein Albumin Prealbumin Triglycerides Cholesterol LDL Cholesterol Direct HDL Cholesterol Urine pH Urine WBC (Auto) Urine Creatinine Urine Total Protein Fluid Total Protein Vancomycin Trough Rheumatoid Factor Complement C4 Miscellaneous Test Crossmatch 10/02/16 10/03/16 10/03/16 23:45 00:45 05:10 WBC 12.9 H RBC 2.77 L Hgb 7.6 L Hct 23.7 L MCV MCH 27 L MCHC RDW 19.7 H Plt Count 89 L Lymph % (Auto) [place] % (Auto) Lymph # [place] # Baso # Seg Neutrophils % Seg Neuts % (Manual) Lymphocytes % (Manual) 8.0 L Monocytes % (Manual) Eosinophils % (Manual) Basophils % (Manual) Nucleated RBC % Seg Neutrophils # 11.9 H Seg Neutrophils # Man Lymphocytes # (Manual) 1.0 L Monocytes # (Manual) Eosinophils # (Manual) Basophils # (Manual) PT INR Fibrinogen dRVVT Confirm Interp Factor V Activity POC ABG pH POC ABG pCO2 POC ABG pO2 ABG pO2 ABG HCO3 ABG Base Excess ABG Hemoglobin Oxyhemoglobin Sodium Potassium Chloride Carbon Dioxide BUN Creatinine Glucose POC Glucose 55 L 199 H Lactic Acid Calcium Phosphorus Magnesium Direct Bilirubin AST ALT Alkaline Phosphatase Lactate Dehydrogenase Troponin T C-Reactive Protein Total Protein Albumin Prealbumin Triglycerides Cholesterol LDL Cholesterol Direct HDL Cholesterol Urine pH Urine WBC (Auto) Urine Creatinine Urine Total Protein Fluid Total Protein Vancomycin Trough Rheumatoid Factor Complement C4 Miscellaneous Test Crossmatch 10/03/16 10/03/16 10/03/16 05:10 12:14 13:18 WBC RBC Hgb Hct MCV MCH MCHC RDW Plt Count Lymph % (Auto) [place] % (Auto) Lymph # [place] # Baso # Seg Neutrophils % Seg Neuts % (Manual) Lymphocytes % (Manual) Monocytes % (Manual) Eosinophils % (Manual) Basophils % (Manual) Nucleated RBC % Seg Neutrophils # Seg Neutrophils # Man Lymphocytes # (Manual) Monocytes # (Manual) Eosinophils # (Manual) Basophils # (Manual) PT INR Fibrinogen dRVVT Confirm Interp Factor V Activity POC ABG pH POC ABG pCO2 POC ABG pO2 ABG pO2 ABG HCO3 ABG Base Excess ABG Hemoglobin Oxyhemoglobin Sodium 129 L Potassium 3.3 L Chloride 88.8 L Carbon Dioxide 20 L BUN 29 H Creatinine 2.8 H Glucose POC Glucose 68 L 127 H Lactic Acid Calcium 7.2 L Phosphorus Magnesium Direct Bilirubin AST ALT Alkaline Phosphatase Lactate Dehydrogenase Troponin T C-Reactive Protein Total Protein Albumin Prealbumin Triglycerides Cholesterol LDL Cholesterol Direct HDL Cholesterol Urine pH Urine WBC (Auto) Urine Creatinine Urine Total Protein Fluid Total Protein Vancomycin Trough Rheumatoid Factor Complement C4 Miscellaneous Test Crossmatch 10/03/16 10/03/16 10/03/16 14:42 18:21 19:09 WBC RBC Hgb Hct MCV MCH MCHC RDW Plt Count Lymph % (Auto) [place] % (Auto) Lymph # [place] # Baso # Seg Neutrophils % Seg Neuts % (Manual) Lymphocytes % (Manual) Monocytes % (Manual) Eosinophils % (Manual) Basophils % (Manual) Nucleated RBC % Seg Neutrophils # Seg Neutrophils # Man Lymphocytes # (Manual) Monocytes # (Manual) Eosinophils # (Manual) Basophils # (Manual) PT INR Fibrinogen dRVVT Confirm Interp Factor V Activity POC ABG pH 7.499 H POC ABG pCO2 28.4 L POC ABG pO2 44 L ABG pO2 ABG HCO3 ABG Base Excess ABG Hemoglobin Oxyhemoglobin Sodium Potassium Chloride Carbon Dioxide BUN Creatinine Glucose POC Glucose 64 L 205 H Lactic Acid Calcium Phosphorus Magnesium Direct Bilirubin AST ALT Alkaline Phosphatase Lactate Dehydrogenase Troponin T C-Reactive Protein Total Protein Albumin Prealbumin Triglycerides Cholesterol LDL Cholesterol Direct HDL Cholesterol Urine pH Urine WBC (Auto) Urine Creatinine Urine Total Protein Fluid Total Protein Vancomycin Trough Rheumatoid Factor Complement C4 Miscellaneous Test Crossmatch 10/03/16 10/04/16 10/04/16 23:33 04:18 06:30 WBC RBC 2.54 L Hgb 7.1 L Hct 21.7 L MCV MCH MCHC RDW 19.5 H Plt Count 76 L Lymph % (Auto) [place] % (Auto) Lymph # [place] # Baso # Seg Neutrophils % Seg Neuts % (Manual) 88.0 H Lymphocytes % (Manual) 6.0 L Monocytes % (Manual) Eosinophils % (Manual) Basophils % (Manual) Nucleated RBC % Seg Neutrophils # Seg Neutrophils # Man 8.8 H Lymphocytes # (Manual) 0.6 L Monocytes # (Manual) Eosinophils # (Manual) Basophils # (Manual) PT INR Fibrinogen dRVVT Confirm Interp Factor V Activity POC ABG pH 7.461 H POC ABG pCO2 33.6 L POC ABG pO2 211 H ABG pO2 ABG HCO3 ABG Base Excess ABG Hemoglobin Oxyhemoglobin Sodium Potassium Chloride Carbon Dioxide BUN Creatinine Glucose POC Glucose 136 H Lactic Acid Calcium Phosphorus Magnesium Direct Bilirubin AST ALT Alkaline Phosphatase Lactate Dehydrogenase Troponin T C-Reactive Protein Total Protein Albumin Prealbumin Triglycerides Cholesterol LDL Cholesterol Direct HDL Cholesterol Urine pH Urine WBC (Auto) Urine Creatinine Urine Total Protein Fluid Total Protein Vancomycin Trough Rheumatoid Factor Complement C4 Miscellaneous Test Crossmatch 10/04/16 10/04/16 10/04/16 06:30 11:45 17:54 WBC RBC Hgb Hct MCV MCH MCHC RDW Plt Count Lymph % (Auto) [place] % (Auto) Lymph # [place] # Baso # Seg Neutrophils % Seg Neuts % (Manual) Lymphocytes % (Manual) Monocytes % (Manual) Eosinophils % (Manual) Basophils % (Manual) Nucleated RBC % Seg Neutrophils # Seg Neutrophils # Man Lymphocytes # (Manual) Monocytes # (Manual) Eosinophils # (Manual) Basophils # (Manual) PT INR Fibrinogen dRVVT Confirm Interp Factor V Activity POC ABG pH POC ABG pCO2 POC ABG pO2 ABG pO2 ABG HCO3 ABG Base Excess ABG Hemoglobin Oxyhemoglobin Sodium 128 L Potassium Chloride 87.4 L Carbon Dioxide 20 L BUN 34 H Creatinine 2.9 H Glucose 127 H POC Glucose 158 H 160 H Lactic Acid Calcium 7.4 L Phosphorus Magnesium Direct Bilirubin AST ALT Alkaline Phosphatase Lactate Dehydrogenase Troponin T C-Reactive Protein Total Protein Albumin Prealbumin Triglycerides Cholesterol LDL Cholesterol Direct HDL Cholesterol Urine pH Urine WBC (Auto) Urine Creatinine Urine Total Protein Fluid Total Protein Vancomycin Trough Rheumatoid Factor Complement C4 Miscellaneous Test Crossmatch 10/04/16 10/05/16 10/05/16 23:25 04:30 05:00 WBC RBC 2.64 L Hgb 7.5 L Hct 22.6 L MCV MCH MCHC RDW 19.3 H Plt Count 80 L Lymph % (Auto) [place] % (Auto) Lymph # [place] # Baso # Seg Neutrophils % Seg Neuts % (Manual) Lymphocytes % (Manual) 12.0 L Monocytes % (Manual) Eosinophils % (Manual) Basophils % (Manual) Nucleated RBC % Seg Neutrophils # Seg Neutrophils # Man Lymphocytes # (Manual) Monocytes # (Manual) Eosinophils # (Manual) Basophils # (Manual) PT INR Fibrinogen dRVVT Confirm Interp Factor V Activity POC ABG pH 7.475 H POC ABG pCO2 33.3 L POC ABG pO2 140 H ABG pO2 ABG HCO3 ABG Base Excess ABG Hemoglobin Oxyhemoglobin Sodium Potassium Chloride Carbon Dioxide BUN Creatinine Glucose POC Glucose 141 H Lactic Acid Calcium Phosphorus Magnesium Direct Bilirubin AST ALT Alkaline Phosphatase Lactate Dehydrogenase Troponin T C-Reactive Protein Total Protein Albumin Prealbumin Triglycerides Cholesterol LDL Cholesterol Direct HDL Cholesterol Urine pH Urine WBC (Auto) Urine Creatinine Urine Total Protein Fluid Total Protein Vancomycin Trough Rheumatoid Factor Complement C4 Miscellaneous Test Crossmatch 10/05/16 10/05/16 10/05/16 05:00 05:09 12:58 WBC RBC Hgb Hct MCV MCH MCHC RDW Plt Count Lymph % (Auto) [place] % (Auto) Lymph # [place] # Baso # Seg Neutrophils % Seg Neuts % (Manual) Lymphocytes % (Manual) Monocytes % (Manual) Eosinophils % (Manual) Basophils % (Manual) Nucleated RBC % Seg Neutrophils # Seg Neutrophils # Man Lymphocytes # (Manual) Monocytes # (Manual) Eosinophils # (Manual) Basophils # (Manual) PT INR Fibrinogen dRVVT Confirm Interp Factor V Activity POC ABG pH POC ABG pCO2 POC ABG pO2 ABG pO2 ABG HCO3 ABG Base Excess ABG Hemoglobin Oxyhemoglobin Sodium 131 L Potassium Chloride 94.0 L Carbon Dioxide 20 L BUN 22 H Creatinine 2.0 H Glucose 123 H POC Glucose 166 H 179 H Lactic Acid Calcium 7.7 L Phosphorus 2.20 L D Magnesium Direct Bilirubin AST ALT Alkaline Phosphatase Lactate Dehydrogenase Troponin T C-Reactive Protein Total Protein Albumin Prealbumin Triglycerides Cholesterol LDL Cholesterol Direct HDL Cholesterol Urine pH Urine WBC (Auto) Urine Creatinine Urine Total Protein Fluid Total Protein Vancomycin Trough Rheumatoid Factor Complement C4 Miscellaneous Test Crossmatch 10/05/16 10/05/16 10/05/16 15:50 18:53 23:12 WBC RBC Hgb Hct MCV MCH MCHC RDW Plt Count Lymph % (Auto) [place] % (Auto) Lymph # [place] # Baso # Seg Neutrophils % Seg Neuts % (Manual) Lymphocytes % (Manual) Monocytes % (Manual) Eosinophils % (Manual) Basophils % (Manual) Nucleated RBC % Seg Neutrophils # Seg Neutrophils # Man Lymphocytes # (Manual) Monocytes # (Manual) Eosinophils # (Manual) Basophils # (Manual) PT INR Fibrinogen dRVVT Confirm Interp Factor V Activity POC ABG pH POC ABG pCO2 POC ABG pO2 ABG pO2 ABG HCO3 ABG Base Excess ABG Hemoglobin Oxyhemoglobin Sodium Potassium Chloride Carbon Dioxide BUN Creatinine Glucose POC Glucose 150 H 164 H Lactic Acid Calcium Phosphorus Magnesium Direct Bilirubin AST ALT Alkaline Phosphatase Lactate Dehydrogenase Troponin T C-Reactive Protein Total Protein Albumin Prealbumin Triglycerides Cholesterol LDL Cholesterol Direct HDL Cholesterol Urine pH Urine WBC (Auto) Urine Creatinine Urine Total Protein Fluid Total Protein Vancomycin Trough Rheumatoid Factor Complement C4 Miscellaneous Test Crossmatch See Detail 10/06/16 10/06/16 10/06/16 03:50 03:50 04:53 WBC RBC 3.00 L Hgb 8.6 L Hct 25.8 L MCV MCH MCHC RDW 17.9 H Plt Count 65 L Lymph % (Auto) [place] % (Auto) Lymph # [place] # Baso # Seg Neutrophils % Seg Neuts % (Manual) 30.0 L Lymphocytes % (Manual) 5.0 L Monocytes % (Manual) Eosinophils % (Manual) Basophils % (Manual) Nucleated RBC % Seg Neutrophils # Seg Neutrophils # Man Lymphocytes # (Manual) 0.4 L Monocytes # (Manual) Eosinophils # (Manual) Basophils # (Manual) PT INR Fibrinogen dRVVT Confirm Interp Factor V Activity POC ABG pH 7.310 L POC ABG pCO2 49.0 H POC ABG pO2 ABG pO2 ABG HCO3 ABG Base Excess ABG Hemoglobin Oxyhemoglobin Sodium 133 L Potassium Chloride 95.9 L Carbon Dioxide BUN 26 H Creatinine 2.0 H Glucose 116 H POC Glucose Lactic Acid Calcium 7.8 L Phosphorus Magnesium Direct Bilirubin AST ALT Alkaline Phosphatase Lactate Dehydrogenase Troponin T C-Reactive Protein Total Protein Albumin Prealbumin Triglycerides Cholesterol LDL Cholesterol Direct HDL Cholesterol Urine pH Urine WBC (Auto) Urine Creatinine Urine Total Protein Fluid Total Protein Vancomycin Trough Rheumatoid Factor Complement C4 Miscellaneous Test Crossmatch 10/06/16 10/06/16 10/06/16 05:23 11:52 18:34 WBC RBC Hgb Hct MCV MCH MCHC RDW Plt Count Lymph % (Auto) [place] % (Auto) Lymph # [place] # Baso # Seg Neutrophils % Seg Neuts % (Manual) Lymphocytes % (Manual) Monocytes % (Manual) Eosinophils % (Manual) Basophils % (Manual) Nucleated RBC % Seg Neutrophils # Seg Neutrophils # Man Lymphocytes # (Manual) Monocytes # (Manual) Eosinophils # (Manual) Basophils # (Manual) PT INR Fibrinogen dRVVT Confirm Interp Factor V Activity POC ABG pH POC ABG pCO2 POC ABG pO2 ABG pO2 ABG HCO3 ABG Base Excess ABG Hemoglobin Oxyhemoglobin Sodium Potassium Chloride Carbon Dioxide BUN Creatinine Glucose POC Glucose 126 H 116 H 129 H Lactic Acid Calcium Phosphorus Magnesium Direct Bilirubin AST ALT Alkaline Phosphatase Lactate Dehydrogenase Troponin T C-Reactive Protein Total Protein Albumin Prealbumin Triglycerides Cholesterol LDL Cholesterol Direct HDL Cholesterol Urine pH Urine WBC (Auto) Urine Creatinine Urine Total Protein Fluid Total Protein Vancomycin Trough Rheumatoid Factor Complement C4 Miscellaneous Test Crossmatch 10/07/16 10/07/16 10/07/16 03:45 05:00 10:00 WBC 17.0 H RBC 2.68 L Hgb 7.3 L Hct 25.3 L MCV MCH 27 L MCHC 29 L RDW 19.6 H Plt Count 74 L Lymph % (Auto) [place] % (Auto) Lymph # [place] # Baso # Seg Neutrophils % Seg Neuts % (Manual) Lymphocytes % (Manual) 12.0 L Monocytes % (Manual) Eosinophils % (Manual) Basophils % (Manual) Nucleated RBC % 4.0 H Seg Neutrophils # Seg Neutrophils # Man 10.7 H Lymphocytes # (Manual) Monocytes # (Manual) Eosinophils # (Manual) Basophils # (Manual) PT INR Fibrinogen dRVVT Confirm Interp Factor V Activity POC ABG pH POC ABG pCO2 POC ABG pO2 ABG pO2 ABG HCO3 ABG Base Excess ABG Hemoglobin Oxyhemoglobin Sodium 130 L Potassium 3.2 L Chloride 93.9 L Carbon Dioxide 20 L BUN 44 H Creatinine 2.7 H Glucose 129 H POC Glucose Lactic Acid Calcium 7.4 L Phosphorus Magnesium Direct Bilirubin AST ALT 6 L Alkaline Phosphatase 195 H Lactate Dehydrogenase Troponin T C-Reactive Protein Total Protein 4.9 L Albumin 1.0 L Prealbumin Triglycerides Cholesterol LDL Cholesterol Direct HDL Cholesterol Urine pH Urine WBC (Auto) Urine Creatinine Urine Total Protein Fluid Total Protein Vancomycin Trough Rheumatoid Factor Complement C4 Miscellaneous Test Flexitest 1 H Crossmatch 10/07/16 10/07/16 10/07/16 10:00 11:24 18:10 WBC RBC Hgb Hct MCV MCH MCHC RDW Plt Count Lymph % (Auto) [place] % (Auto) Lymph # [place] # Baso # Seg Neutrophils % Seg Neuts % (Manual) Lymphocytes % (Manual) Monocytes % (Manual) Eosinophils % (Manual) Basophils % (Manual) Nucleated RBC % Seg Neutrophils # Seg Neutrophils # Man Lymphocytes # (Manual) Monocytes # (Manual) Eosinophils # (Manual) Basophils # (Manual) PT INR Fibrinogen dRVVT Confirm Interp Factor V Activity POC ABG pH POC ABG pCO2 POC ABG pO2 ABG pO2 ABG HCO3 ABG Base Excess ABG Hemoglobin Oxyhemoglobin Sodium Potassium Chloride Carbon Dioxide BUN Creatinine Glucose POC Glucose 116 H 130 H Lactic Acid Calcium Phosphorus Magnesium Direct Bilirubin AST ALT Alkaline Phosphatase Lactate Dehydrogenase Troponin T C-Reactive Protein 19.40 H Total Protein Albumin Prealbumin Triglycerides Cholesterol LDL Cholesterol Direct HDL Cholesterol Urine pH Urine WBC (Auto) Urine Creatinine Urine Total Protein Fluid Total Protein Vancomycin Trough Rheumatoid Factor Complement C4 Miscellaneous Test Crossmatch 10/07/16 10/08/16 10/08/16 18:30 00:00 04:00 WBC RBC Hgb Hct MCV MCH MCHC RDW Plt Count Lymph % (Auto) [place] % (Auto) Lymph # [place] # Baso # Seg Neutrophils % Seg Neuts % (Manual) Lymphocytes % (Manual) Monocytes % (Manual) Eosinophils % (Manual) Basophils % (Manual) Nucleated RBC % Seg Neutrophils # Seg Neutrophils # Man Lymphocytes # (Manual) Monocytes # (Manual) Eosinophils # (Manual) Basophils # (Manual) PT INR Fibrinogen dRVVT Confirm Interp Factor V Activity POC ABG pH POC ABG pCO2 POC ABG pO2 ABG pO2 ABG HCO3 ABG Base Excess ABG Hemoglobin Oxyhemoglobin Sodium 132 L Potassium 3.3 L Chloride 93.6 L Carbon Dioxide 17 L BUN 59 H Creatinine 2.7 H Glucose 121 H POC Glucose 122 H Lactic Acid Calcium 7.6 L Phosphorus Magnesium Direct Bilirubin AST ALT Alkaline Phosphatase Lactate Dehydrogenase Troponin T C-Reactive Protein Total Protein Albumin Prealbumin Triglycerides Cholesterol LDL Cholesterol Direct HDL Cholesterol Urine pH Urine WBC (Auto) > 182.0 H Urine Creatinine Urine Total Protein Fluid Total Protein Vancomycin Trough Rheumatoid Factor Complement C4 Miscellaneous Test Crossmatch 10/08/16 10/08/16 10/08/16 04:30 05:30 11:51 WBC RBC 5.15 H Hgb 14.4 H D Hct 44.5 H D MCV MCH MCHC RDW 19.5 H Plt Count 56 L Lymph % (Auto) [place] % (Auto) Lymph # [place] # Baso # Seg Neutrophils % Seg Neuts % (Manual) 24.0 L Lymphocytes % (Manual) 8.0 L Monocytes % (Manual) Eosinophils % (Manual) Basophils % (Manual) Nucleated RBC % 9.0 H Seg Neutrophils # Seg Neutrophils # Man Lymphocytes # (Manual) 0.7 L Monocytes # (Manual) Eosinophils # (Manual) Basophils # (Manual) PT INR Fibrinogen dRVVT Confirm Interp Factor V Activity POC ABG pH POC ABG pCO2 POC ABG pO2 ABG pO2 ABG HCO3 ABG Base Excess ABG Hemoglobin Oxyhemoglobin Sodium Potassium Chloride Carbon Dioxide BUN Creatinine Glucose POC Glucose 125 H 150 H Lactic Acid Calcium Phosphorus Magnesium Direct Bilirubin AST ALT Alkaline Phosphatase Lactate Dehydrogenase Troponin T C-Reactive Protein Total Protein Albumin Prealbumin Triglycerides Cholesterol LDL Cholesterol Direct HDL Cholesterol Urine pH Urine WBC (Auto) Urine Creatinine Urine Total Protein Fluid Total Protein Vancomycin Trough Rheumatoid Factor Complement C4 Miscellaneous Test Crossmatch 10/08/16 10/08/16 10/08/16 12:49 17:07 19:30 WBC RBC Hgb 7.1 L D Hct 22.4 L D MCV MCH MCHC RDW Plt Count Lymph % (Auto) [place] % (Auto) Lymph # [place] # Baso # Seg Neutrophils % Seg Neuts % (Manual) Lymphocytes % (Manual) Monocytes % (Manual) Eosinophils % (Manual) Basophils % (Manual) Nucleated RBC % Seg Neutrophils # Seg Neutrophils # Man Lymphocytes # (Manual) Monocytes # (Manual) Eosinophils # (Manual) Basophils # (Manual) PT INR Fibrinogen dRVVT Confirm Interp Factor V Activity POC ABG pH POC ABG pCO2 28.2 L POC ABG pO2 111 H ABG pO2 ABG HCO3 ABG Base Excess ABG Hemoglobin Oxyhemoglobin Sodium Potassium Chloride Carbon Dioxide BUN Creatinine Glucose POC Glucose 145 H Lactic Acid Calcium Phosphorus Magnesium Direct Bilirubin AST ALT Alkaline Phosphatase Lactate Dehydrogenase Troponin T C-Reactive Protein Total Protein Albumin Prealbumin Triglycerides Cholesterol LDL Cholesterol Direct HDL Cholesterol Urine pH Urine WBC (Auto) Urine Creatinine Urine Total Protein Fluid Total Protein Vancomycin Trough Rheumatoid Factor Complement C4 Miscellaneous Test Crossmatch 10/08/16 10/09/16 10/09/16 19:30 03:45 03:45 WBC 12.6 H RBC 2.36 L Hgb 6.7 L Hct 21.1 L MCV MCH MCHC RDW 19.5 H Plt Count 75 L Lymph % (Auto) [place] % (Auto) Lymph # [place] # Baso # Seg Neutrophils % Seg Neuts % (Manual) Lymphocytes % (Manual) Monocytes % (Manual) 10.0 H Eosinophils % (Manual) Basophils % (Manual) Nucleated RBC % 3.0 H Seg Neutrophils # Seg Neutrophils # Man Lymphocytes # (Manual) Monocytes # (Manual) 1.3 H Eosinophils # (Manual) Basophils # (Manual) PT 18.0 H INR 1.41 H Fibrinogen dRVVT Confirm Interp Factor V Activity POC ABG pH POC ABG pCO2 POC ABG pO2 ABG pO2 ABG HCO3 ABG Base Excess ABG Hemoglobin Oxyhemoglobin Sodium 135 L Potassium Chloride Carbon Dioxide 17 L BUN 81 H Creatinine 3.2 H Glucose 109 H POC Glucose Lactic Acid Calcium 7.4 L Phosphorus 4.60 H D Magnesium Direct Bilirubin AST ALT Alkaline Phosphatase Lactate Dehydrogenase Troponin T C-Reactive Protein Total Protein Albumin Prealbumin Triglycerides Cholesterol LDL Cholesterol Direct HDL Cholesterol Urine pH Urine WBC (Auto) Urine Creatinine Urine Total Protein Fluid Total Protein Vancomycin Trough Rheumatoid Factor Complement C4 Miscellaneous Test Crossmatch 10/09/16 10/09/16 10/09/16 03:45 05:14 07:20 WBC RBC Hgb Hct MCV MCH MCHC RDW Plt Count Lymph % (Auto) [place] % (Auto) Lymph # [place] # Baso # Seg Neutrophils % Seg Neuts % (Manual) Lymphocytes % (Manual) Monocytes % (Manual) Eosinophils % (Manual) Basophils % (Manual) Nucleated RBC % Seg Neutrophils # Seg Neutrophils # Man Lymphocytes # (Manual) Monocytes # (Manual) Eosinophils # (Manual) Basophils # (Manual) PT 19.0 H INR 1.51 H Fibrinogen dRVVT Confirm Interp Factor V Activity POC ABG pH POC ABG pCO2 POC ABG pO2 ABG pO2 ABG HCO3 ABG Base Excess ABG Hemoglobin Oxyhemoglobin Sodium Potassium Chloride Carbon Dioxide BUN Creatinine Glucose POC Glucose 151 H Lactic Acid Calcium Phosphorus Magnesium Direct Bilirubin AST ALT Alkaline Phosphatase Lactate Dehydrogenase Troponin T C-Reactive Protein Total Protein Albumin Prealbumin Triglycerides Cholesterol LDL Cholesterol Direct HDL Cholesterol Urine pH Urine WBC (Auto) Urine Creatinine Urine Total Protein Fluid Total Protein Vancomycin Trough Rheumatoid Factor Complement C4 Miscellaneous Test Crossmatch See Detail 10/09/16 10/09/16 10/09/16 11:46 16:20 16:43 WBC RBC Hgb 7.2 L Hct 22.2 L MCV MCH MCHC RDW Plt Count Lymph % (Auto) [place] % (Auto) Lymph # [place] # Baso # Seg Neutrophils % Seg Neuts % (Manual) Lymphocytes % (Manual) Monocytes % (Manual) Eosinophils % (Manual) Basophils % (Manual) Nucleated RBC % Seg Neutrophils # Seg Neutrophils # Man Lymphocytes # (Manual) Monocytes # (Manual) Eosinophils # (Manual) Basophils # (Manual) PT INR Fibrinogen dRVVT Confirm Interp Factor V Activity POC ABG pH POC ABG pCO2 POC ABG pO2 ABG pO2 ABG HCO3 ABG Base Excess ABG Hemoglobin Oxyhemoglobin Sodium Potassium Chloride Carbon Dioxide BUN Creatinine Glucose POC Glucose 133 H 141 H Lactic Acid Calcium Phosphorus Magnesium Direct Bilirubin AST ALT Alkaline Phosphatase Lactate Dehydrogenase Troponin T C-Reactive Protein Total Protein Albumin Prealbumin Triglycerides Cholesterol LDL Cholesterol Direct HDL Cholesterol Urine pH Urine WBC (Auto) Urine Creatinine Urine Total Protein Fluid Total Protein Vancomycin Trough Rheumatoid Factor Complement C4 Miscellaneous Test Crossmatch 10/10/16 10/10/16 10/10/16 05:00 05:00 11:19 WBC 18.5 H RBC 2.19 L Hgb 6.4 L Hct 19.6 L* MCV MCH MCHC RDW 19.3 H Plt Count 93 L Lymph % (Auto) [place] % (Auto) Lymph # [place] # Baso # Seg Neutrophils % Seg Neuts % (Manual) Lymphocytes % (Manual) 10.0 L Monocytes % (Manual) Eosinophils % (Manual) Basophils % (Manual) Nucleated RBC % 4.0 H Seg Neutrophils # Seg Neutrophils # Man 11.3 H Lymphocytes # (Manual) Monocytes # (Manual) Eosinophils # (Manual) Basophils # (Manual) PT INR Fibrinogen dRVVT Confirm Interp Factor V Activity POC ABG pH POC ABG pCO2 POC ABG pO2 ABG pO2 ABG HCO3 ABG Base Excess ABG Hemoglobin Oxyhemoglobin Sodium Potassium 5.7 H D Chloride Carbon Dioxide 16 L BUN 94 H Creatinine 3.1 H Glucose 131 H POC Glucose 153 H Lactic Acid Calcium 8.2 L Phosphorus 5.10 H Magnesium 2.40 H Direct Bilirubin 0.3 H AST ALT < 5 L Alkaline Phosphatase 319 H Lactate Dehydrogenase Troponin T C-Reactive Protein Total Protein 5.1 L Albumin 1.0 L Prealbumin Triglycerides Cholesterol LDL Cholesterol Direct HDL Cholesterol Urine pH Urine WBC (Auto) Urine Creatinine Urine Total Protein Fluid Total Protein Vancomycin Trough Rheumatoid Factor Complement C4 Miscellaneous Test Crossmatch 10/10/16 10/10/16 10/11/16 17:50 23:30 04:15 WBC RBC Hgb Hct MCV MCH MCHC RDW Plt Count Lymph % (Auto) [place] % (Auto) Lymph # [place] # Baso # Seg Neutrophils % Seg Neuts % (Manual) Lymphocytes % (Manual) Monocytes % (Manual) Eosinophils % (Manual) Basophils % (Manual) Nucleated RBC % Seg Neutrophils # Seg Neutrophils # Man Lymphocytes # (Manual) Monocytes # (Manual) Eosinophils # (Manual) Basophils # (Manual) PT INR Fibrinogen dRVVT Confirm Interp Factor V Activity POC ABG pH POC ABG pCO2 POC ABG pO2 ABG pO2 ABG HCO3 ABG Base Excess ABG Hemoglobin Oxyhemoglobin Sodium Potassium Chloride 96.4 L Carbon Dioxide 21 L BUN 57 H Creatinine 2.1 H Glucose 151 H POC Glucose 146 H 141 H Lactic Acid Calcium 8.3 L Phosphorus Magnesium Direct Bilirubin AST ALT Alkaline Phosphatase Lactate Dehydrogenase Troponin T C-Reactive Protein Total Protein Albumin Prealbumin Triglycerides Cholesterol LDL Cholesterol Direct HDL Cholesterol Urine pH Urine WBC (Auto) Urine Creatinine Urine Total Protein Fluid Total Protein Vancomycin Trough Rheumatoid Factor Complement C4 Miscellaneous Test Crossmatch 10/11/16 10/11/16 10/11/16 04:15 04:15 05:30 WBC 28.3 H RBC 3.12 L Hgb 9.3 L Hct 28.7 L D MCV MCH MCHC RDW 17.7 H Plt Count 128 L Lymph % (Auto) [place] % (Auto) Lymph # [place] # Baso # Seg Neutrophils % Seg Neuts % (Manual) Lymphocytes % (Manual) Monocytes % (Manual) Eosinophils % (Manual) Basophils % (Manual) Nucleated RBC % Seg Neutrophils # Seg Neutrophils # Man Lymphocytes # (Manual) Monocytes # (Manual) Eosinophils # (Manual) Basophils # (Manual) PT INR Fibrinogen dRVVT Confirm Interp Factor V Activity POC ABG pH POC ABG pCO2 POC ABG pO2 ABG pO2 ABG HCO3 ABG Base Excess ABG Hemoglobin Oxyhemoglobin Sodium Potassium Chloride Carbon Dioxide BUN Creatinine Glucose POC Glucose 167 H Lactic Acid Calcium Phosphorus Magnesium Direct Bilirubin AST ALT Alkaline Phosphatase Lactate Dehydrogenase Troponin T C-Reactive Protein 15.80 H Total Protein Albumin Prealbumin Triglycerides Cholesterol LDL Cholesterol Direct HDL Cholesterol Urine pH Urine WBC (Auto) Urine Creatinine Urine Total Protein Fluid Total Protein Vancomycin Trough Rheumatoid Factor Complement C4 Miscellaneous Test Crossmatch 10/11/16 10/11/16 10/11/16 11:40 15:49 23:57 WBC RBC Hgb Hct MCV MCH MCHC RDW Plt Count Lymph % (Auto) [place] % (Auto) Lymph # [place] # Baso # Seg Neutrophils % Seg Neuts % (Manual) Lymphocytes % (Manual) Monocytes % (Manual) Eosinophils % (Manual) Basophils % (Manual) Nucleated RBC % Seg Neutrophils # Seg Neutrophils # Man Lymphocytes # (Manual) Monocytes # (Manual) Eosinophils # (Manual) Basophils # (Manual) PT INR Fibrinogen dRVVT Confirm Interp Factor V Activity POC ABG pH POC ABG pCO2 POC ABG pO2 ABG pO2 ABG HCO3 ABG Base Excess ABG Hemoglobin Oxyhemoglobin Sodium Potassium Chloride Carbon Dioxide BUN Creatinine Glucose POC Glucose 139 H 168 H 161 H Lactic Acid Calcium Phosphorus Magnesium Direct Bilirubin AST ALT Alkaline Phosphatase Lactate Dehydrogenase Troponin T C-Reactive Protein Total Protein Albumin Prealbumin Triglycerides Cholesterol LDL Cholesterol Direct HDL Cholesterol Urine pH Urine WBC (Auto) Urine Creatinine Urine Total Protein Fluid Total Protein Vancomycin Trough Rheumatoid Factor Complement C4 Miscellaneous Test Crossmatch 10/12/16 10/12/16 10/12/16 04:40 04:40 05:44 WBC 22.5 H RBC 2.88 L Hgb 8.8 L Hct 26.8 L MCV MCH MCHC RDW 17.8 H Plt Count Lymph % (Auto) [place] % (Auto) Lymph # [place] # Baso # Seg Neutrophils % Seg Neuts % (Manual) Lymphocytes % (Manual) Monocytes % (Manual) Eosinophils % (Manual) Basophils % (Manual) Nucleated RBC % Seg Neutrophils # Seg Neutrophils # Man Lymphocytes # (Manual) Monocytes # (Manual) Eosinophils # (Manual) Basophils # (Manual) PT INR Fibrinogen dRVVT Confirm Interp Factor V Activity POC ABG pH POC ABG pCO2 POC ABG pO2 ABG pO2 ABG HCO3 ABG Base Excess ABG Hemoglobin Oxyhemoglobin Sodium 134 L Potassium Chloride 93.0 L Carbon Dioxide BUN 74 H Creatinine 2.5 H Glucose 137 H POC Glucose 158 H Lactic Acid Calcium 8.2 L Phosphorus Magnesium Direct Bilirubin AST ALT Alkaline Phosphatase Lactate Dehydrogenase Troponin T C-Reactive Protein Total Protein Albumin Prealbumin Triglycerides Cholesterol LDL Cholesterol Direct HDL Cholesterol Urine pH Urine WBC (Auto) Urine Creatinine Urine Total Protein Fluid Total Protein Vancomycin Trough Rheumatoid Factor Complement C4 Miscellaneous Test Crossmatch 10/12/16 10/12/16 10/12/16 12:27 18:18 23:46 WBC RBC Hgb Hct MCV MCH MCHC RDW Plt Count Lymph % (Auto) [place] % (Auto) Lymph # [place] # Baso # Seg Neutrophils % Seg Neuts % (Manual) Lymphocytes % (Manual) Monocytes % (Manual) Eosinophils % (Manual) Basophils % (Manual) Nucleated RBC % Seg Neutrophils # Seg Neutrophils # Man Lymphocytes # (Manual) Monocytes # (Manual) Eosinophils # (Manual) Basophils # (Manual) PT INR Fibrinogen dRVVT Confirm Interp Factor V Activity POC ABG pH POC ABG pCO2 POC ABG pO2 ABG pO2 ABG HCO3 ABG Base Excess ABG Hemoglobin Oxyhemoglobin Sodium Potassium Chloride Carbon Dioxide BUN Creatinine Glucose POC Glucose 153 H 140 H 150 H Lactic Acid Calcium Phosphorus Magnesium Direct Bilirubin AST ALT Alkaline Phosphatase Lactate Dehydrogenase Troponin T C-Reactive Protein Total Protein Albumin Prealbumin Triglycerides Cholesterol LDL Cholesterol Direct HDL Cholesterol Urine pH Urine WBC (Auto) Urine Creatinine Urine Total Protein Fluid Total Protein Vancomycin Trough Rheumatoid Factor Complement C4 Miscellaneous Test Crossmatch 10/13/16 10/13/16 10/13/16 06:22 09:20 12:29 WBC RBC Hgb Hct MCV MCH MCHC RDW Plt Count Lymph % (Auto) [place] % (Auto) Lymph # [place] # Baso # Seg Neutrophils % Seg Neuts % (Manual) Lymphocytes % (Manual) Monocytes % (Manual) Eosinophils % (Manual) Basophils % (Manual) Nucleated RBC % Seg Neutrophils # Seg Neutrophils # Man Lymphocytes # (Manual) Monocytes # (Manual) Eosinophils # (Manual) Basophils # (Manual) PT INR Fibrinogen dRVVT Confirm Interp Factor V Activity POC ABG pH POC ABG pCO2 POC ABG pO2 ABG pO2 ABG HCO3 ABG Base Excess ABG Hemoglobin Oxyhemoglobin Sodium Potassium Chloride Carbon Dioxide BUN Creatinine Glucose POC Glucose 165 H 193 H Lactic Acid Calcium Phosphorus Magnesium Direct Bilirubin AST ALT Alkaline Phosphatase Lactate Dehydrogenase Troponin T C-Reactive Protein Total Protein Albumin Prealbumin Triglycerides Cholesterol LDL Cholesterol Direct HDL Cholesterol Urine pH Urine WBC (Auto) Urine Creatinine Urine Total Protein Fluid Total Protein Vancomycin Trough Rheumatoid Factor Complement C4 Miscellaneous Test Flexitest 1 H Crossmatch 10/13/16 10/13/16 10/13/16 18:09 Unknown Unknown WBC 23.4 H RBC 2.83 L Hgb 8.7 L Hct 26.1 L MCV MCH MCHC RDW 18.1 H Plt Count Lymph % (Auto) [place] % (Auto) Lymph # [place] # Baso # Seg Neutrophils % Seg Neuts % (Manual) Lymphocytes % (Manual) Monocytes % (Manual) Eosinophils % (Manual) Basophils % (Manual) Nucleated RBC % Seg Neutrophils # Seg Neutrophils # Man Lymphocytes # (Manual) Monocytes # (Manual) Eosinophils # (Manual) Basophils # (Manual) PT INR Fibrinogen dRVVT Confirm Interp Factor V Activity POC ABG pH POC ABG pCO2 POC ABG pO2 ABG pO2 ABG HCO3 ABG Base Excess ABG Hemoglobin Oxyhemoglobin Sodium Potassium Chloride 95.8 L Carbon Dioxide BUN 82 H Creatinine 2.6 H Glucose 152 H POC Glucose 166 H Lactic Acid Calcium Phosphorus Magnesium Direct Bilirubin AST ALT Alkaline Phosphatase Lactate Dehydrogenase Troponin T C-Reactive Protein Total Protein Albumin Prealbumin Triglycerides Cholesterol LDL Cholesterol Direct HDL Cholesterol Urine pH Urine WBC (Auto) Urine Creatinine Urine Total Protein Fluid Total Protein Vancomycin Trough Rheumatoid Factor Complement C4 Miscellaneous Test Crossmatch 10/14/16 10/14/16 10/14/16 05:38 06:35 08:10 WBC 20.7 H RBC 2.81 L Hgb 8.4 L Hct 27.2 L MCV MCH MCHC RDW 19.4 H Plt Count Lymph % (Auto) [place] % (Auto) Lymph # [place] # Baso # Seg Neutrophils % Seg Neuts % (Manual) Lymphocytes % (Manual) Monocytes % (Manual) Eosinophils % (Manual) Basophils % (Manual) Nucleated RBC % Seg Neutrophils # Seg Neutrophils # Man Lymphocytes # (Manual) Monocytes # (Manual) Eosinophils # (Manual) Basophils # (Manual) PT INR Fibrinogen dRVVT Confirm Interp Factor V Activity POC ABG pH POC ABG pCO2 POC ABG pO2 ABG pO2 ABG HCO3 ABG Base Excess ABG Hemoglobin Oxyhemoglobin Sodium Potassium Chloride Carbon Dioxide BUN 58 H Creatinine 1.9 H Glucose 169 H POC Glucose 195 H Lactic Acid Calcium Phosphorus Magnesium Direct Bilirubin AST ALT Alkaline Phosphatase Lactate Dehydrogenase Troponin T C-Reactive Protein Total Protein Albumin Prealbumin Triglycerides Cholesterol LDL Cholesterol Direct HDL Cholesterol Urine pH Urine WBC (Auto) Urine Creatinine Urine Total Protein Fluid Total Protein Vancomycin Trough Rheumatoid Factor Complement C4 Miscellaneous Test Crossmatch 10/14/16 10/14/16 10/14/16 11:44 17:13 23:28 WBC RBC Hgb Hct MCV MCH MCHC RDW Plt Count Lymph % (Auto) [place] % (Auto) Lymph # [place] # Baso # Seg Neutrophils % Seg Neuts % (Manual) Lymphocytes % (Manual) Monocytes % (Manual) Eosinophils % (Manual) Basophils % (Manual) Nucleated RBC % Seg Neutrophils # Seg Neutrophils # Man Lymphocytes # (Manual) Monocytes # (Manual) Eosinophils # (Manual) Basophils # (Manual) PT INR Fibrinogen dRVVT Confirm Interp Factor V Activity POC ABG pH POC ABG pCO2 POC ABG pO2 ABG pO2 ABG HCO3 ABG Base Excess ABG Hemoglobin Oxyhemoglobin Sodium Potassium Chloride Carbon Dioxide BUN Creatinine Glucose POC Glucose 174 H 121 H 151 H Lactic Acid Calcium Phosphorus Magnesium Direct Bilirubin AST ALT Alkaline Phosphatase Lactate Dehydrogenase Troponin T C-Reactive Protein Total Protein Albumin Prealbumin Triglycerides Cholesterol LDL Cholesterol Direct HDL Cholesterol Urine pH Urine WBC (Auto) Urine Creatinine Urine Total Protein Fluid Total Protein Vancomycin Trough Rheumatoid Factor Complement C4 Miscellaneous Test Crossmatch 10/15/16 10/15/16 10/15/16 05:06 12:26 17:48 WBC RBC Hgb Hct MCV MCH MCHC RDW Plt Count Lymph % (Auto) [place] % (Auto) Lymph # [place] # Baso # Seg Neutrophils % Seg Neuts % (Manual) Lymphocytes % (Manual) Monocytes % (Manual) Eosinophils % (Manual) Basophils % (Manual) Nucleated RBC % Seg Neutrophils # Seg Neutrophils # Man Lymphocytes # (Manual) Monocytes # (Manual) Eosinophils # (Manual) Basophils # (Manual) PT INR Fibrinogen dRVVT Confirm Interp Factor V Activity POC ABG pH POC ABG pCO2 POC ABG pO2 ABG pO2 ABG HCO3 ABG Base Excess ABG Hemoglobin Oxyhemoglobin Sodium Potassium Chloride Carbon Dioxide BUN Creatinine Glucose POC Glucose 151 H 149 H 153 H Lactic Acid Calcium Phosphorus Magnesium Direct Bilirubin AST ALT Alkaline Phosphatase Lactate Dehydrogenase Troponin T C-Reactive Protein Total Protein Albumin Prealbumin Triglycerides Cholesterol LDL Cholesterol Direct HDL Cholesterol Urine pH Urine WBC (Auto) Urine Creatinine Urine Total Protein Fluid Total Protein Vancomycin Trough Rheumatoid Factor Complement C4 Miscellaneous Test Crossmatch 10/15/16 10/15/16 10/16/16 Unknown Unknown 00:02 WBC 23.4 H RBC 2.78 L Hgb 8.5 L Hct 25.7 L MCV MCH MCHC RDW 18.7 H Plt Count Lymph % (Auto) [place] % (Auto) Lymph # [place] # Baso # Seg Neutrophils % Seg Neuts % (Manual) Lymphocytes % (Manual) Monocytes % (Manual) Eosinophils % (Manual) Basophils % (Manual) Nucleated RBC % Seg Neutrophils # Seg Neutrophils # Man Lymphocytes # (Manual) Monocytes # (Manual) Eosinophils # (Manual) Basophils # (Manual) PT INR Fibrinogen dRVVT Confirm Interp Factor V Activity POC ABG pH POC ABG pCO2 POC ABG pO2 ABG pO2 ABG HCO3 ABG Base Excess ABG Hemoglobin Oxyhemoglobin Sodium Potassium Chloride Carbon Dioxide BUN 73 H Creatinine 2.3 H Glucose 120 H POC Glucose 137 H Lactic Acid Calcium Phosphorus Magnesium Direct Bilirubin AST ALT Alkaline Phosphatase Lactate Dehydrogenase Troponin T C-Reactive Protein Total Protein Albumin Prealbumin Triglycerides Cholesterol LDL Cholesterol Direct HDL Cholesterol Urine pH Urine WBC (Auto) Urine Creatinine Urine Total Protein Fluid Total Protein Vancomycin Trough Rheumatoid Factor Complement C4 Miscellaneous Test Crossmatch 10/16/16 10/16/16 10/16/16 05:44 06:25 06:25 WBC 22.5 H RBC 2.76 L Hgb 8.3 L Hct 25.2 L MCV MCH MCHC RDW 18.3 H Plt Count Lymph % (Auto) [place] % (Auto) Lymph # [place] # Baso # Seg Neutrophils % Seg Neuts % (Manual) Lymphocytes % (Manual) Monocytes % (Manual) Eosinophils % (Manual) Basophils % (Manual) Nucleated RBC % Seg Neutrophils # Seg Neutrophils # Man Lymphocytes # (Manual) Monocytes # (Manual) Eosinophils # (Manual) Basophils # (Manual) PT INR Fibrinogen dRVVT Confirm Interp Factor V Activity POC ABG pH POC ABG pCO2 POC ABG pO2 ABG pO2 ABG HCO3 ABG Base Excess ABG Hemoglobin Oxyhemoglobin Sodium Potassium Chloride Carbon Dioxide BUN 92 H Creatinine 3.0 H Glucose 138 H POC Glucose 110 H Lactic Acid Calcium Phosphorus Magnesium Direct Bilirubin AST ALT Alkaline Phosphatase Lactate Dehydrogenase Troponin T C-Reactive Protein Total Protein Albumin Prealbumin Triglycerides Cholesterol LDL Cholesterol Direct HDL Cholesterol Urine pH Urine WBC (Auto) Urine Creatinine Urine Total Protein Fluid Total Protein Vancomycin Trough Rheumatoid Factor Complement C4 Miscellaneous Test Crossmatch 10/16/16 10/16/16 10/16/16 11:27 11:48 17:36 WBC RBC Hgb Hct MCV MCH MCHC RDW Plt Count Lymph % (Auto) [place] % (Auto) Lymph # [place] # Baso # Seg Neutrophils % Seg Neuts % (Manual) Lymphocytes % (Manual) Monocytes % (Manual) Eosinophils % (Manual) Basophils % (Manual) Nucleated RBC % Seg Neutrophils # Seg Neutrophils # Man Lymphocytes # (Manual) Monocytes # (Manual) Eosinophils # (Manual) Basophils # (Manual) PT INR Fibrinogen dRVVT Confirm Interp Factor V Activity POC ABG pH 7.582 H POC ABG pCO2 27.4 L POC ABG pO2 110 H ABG pO2 ABG HCO3 ABG Base Excess ABG Hemoglobin Oxyhemoglobin Sodium Potassium Chloride Carbon Dioxide BUN Creatinine Glucose POC Glucose 121 H 133 H Lactic Acid Calcium Phosphorus Magnesium Direct Bilirubin AST ALT Alkaline Phosphatase Lactate Dehydrogenase Troponin T C-Reactive Protein Total Protein Albumin Prealbumin Triglycerides Cholesterol LDL Cholesterol Direct HDL Cholesterol Urine pH Urine WBC (Auto) Urine Creatinine Urine Total Protein Fluid Total Protein Vancomycin Trough Rheumatoid Factor Complement C4 Miscellaneous Test Crossmatch 10/16/16 10/17/16 10/17/16 20:48 04:24 04:24 WBC 21.4 H RBC 2.72 L Hgb 8.0 L Hct 25.2 L MCV MCH MCHC RDW 18.0 H Plt Count Lymph % (Auto) [place] % (Auto) Lymph # [place] # Baso # Seg Neutrophils % Seg Neuts % (Manual) Lymphocytes % (Manual) Monocytes % (Manual) Eosinophils % (Manual) Basophils % (Manual) Nucleated RBC % Seg Neutrophils # Seg Neutrophils # Man Lymphocytes # (Manual) Monocytes # (Manual) Eosinophils # (Manual) Basophils # (Manual) PT INR Fibrinogen dRVVT Confirm Interp Factor V Activity POC ABG pH 7.561 H POC ABG pCO2 24.4 L POC ABG pO2 77 L ABG pO2 ABG HCO3 ABG Base Excess ABG Hemoglobin Oxyhemoglobin Sodium 148 H Potassium Chloride Carbon Dioxide BUN 104 H Creatinine 3.0 H Glucose 149 H POC Glucose Lactic Acid Calcium Phosphorus Magnesium Direct Bilirubin AST ALT Alkaline Phosphatase 138 H Lactate Dehydrogenase Troponin T C-Reactive Protein Total Protein 6.2 L Albumin 1.5 L Prealbumin Triglycerides Cholesterol LDL Cholesterol Direct HDL Cholesterol Urine pH Urine WBC (Auto) Urine Creatinine Urine Total Protein Fluid Total Protein Vancomycin Trough Rheumatoid Factor Complement C4 Miscellaneous Test Crossmatch 10/17/16 10/17/16 10/17/16 06:02 12:17 17:14 WBC RBC Hgb Hct MCV MCH MCHC RDW Plt Count Lymph % (Auto) [place] % (Auto) Lymph # [place] # Baso # Seg Neutrophils % Seg Neuts % (Manual) Lymphocytes % (Manual) Monocytes % (Manual) Eosinophils % (Manual) Basophils % (Manual) Nucleated RBC % Seg Neutrophils # Seg Neutrophils # Man Lymphocytes # (Manual) Monocytes # (Manual) Eosinophils # (Manual) Basophils # (Manual) PT INR Fibrinogen dRVVT Confirm Interp Factor V Activity POC ABG pH POC ABG pCO2 POC ABG pO2 ABG pO2 ABG HCO3 ABG Base Excess ABG Hemoglobin Oxyhemoglobin Sodium Potassium Chloride Carbon Dioxide BUN Creatinine Glucose POC Glucose 170 H 167 H 126 H Lactic Acid Calcium Phosphorus Magnesium Direct Bilirubin AST ALT Alkaline Phosphatase Lactate Dehydrogenase Troponin T C-Reactive Protein Total Protein Albumin Prealbumin Triglycerides Cholesterol LDL Cholesterol Direct HDL Cholesterol Urine pH Urine WBC (Auto) Urine Creatinine Urine Total Protein Fluid Total Protein Vancomycin Trough Rheumatoid Factor Complement C4 Miscellaneous Test Crossmatch 10/17/16 10/18/16 10/18/16 23:17 04:00 04:00 WBC 20.7 H RBC 2.47 L Hgb 7.4 L Hct 22.9 L MCV MCH MCHC RDW 17.5 H Plt Count Lymph % (Auto) [place] % (Auto) Lymph # [place] # Baso # Seg Neutrophils % Seg Neuts % (Manual) Lymphocytes % (Manual) Monocytes % (Manual) Eosinophils % (Manual) Basophils % (Manual) Nucleated RBC % Seg Neutrophils # Seg Neutrophils # Man Lymphocytes # (Manual) Monocytes # (Manual) Eosinophils # (Manual) Basophils # (Manual) PT INR Fibrinogen dRVVT Confirm Interp Factor V Activity POC ABG pH POC ABG pCO2 POC ABG pO2 ABG pO2 ABG HCO3 ABG Base Excess ABG Hemoglobin Oxyhemoglobin Sodium 149 H Potassium Chloride 107.9 H Carbon Dioxide 20 L BUN 117 H Creatinine 3.2 H Glucose 119 H POC Glucose 121 H Lactic Acid Calcium Phosphorus Magnesium Direct Bilirubin AST ALT Alkaline Phosphatase Lactate Dehydrogenase Troponin T C-Reactive Protein Total Protein Albumin Prealbumin Triglycerides Cholesterol LDL Cholesterol Direct HDL Cholesterol Urine pH Urine WBC (Auto) Urine Creatinine Urine Total Protein Fluid Total Protein Vancomycin Trough Rheumatoid Factor Complement C4 Miscellaneous Test Crossmatch 10/18/16 10/18/16 10/18/16 05:23 10:46 17:30 WBC RBC Hgb Hct MCV MCH MCHC RDW Plt Count Lymph % (Auto) [place] % (Auto) Lymph # [place] # Baso # Seg Neutrophils % Seg Neuts % (Manual) Lymphocytes % (Manual) Monocytes % (Manual) Eosinophils % (Manual) Basophils % (Manual) Nucleated RBC % Seg Neutrophils # Seg Neutrophils # Man Lymphocytes # (Manual) Monocytes # (Manual) Eosinophils # (Manual) Basophils # (Manual) PT INR Fibrinogen dRVVT Confirm Interp Factor V Activity POC ABG pH POC ABG pCO2 POC ABG pO2 ABG pO2 ABG HCO3 ABG Base Excess ABG Hemoglobin Oxyhemoglobin Sodium Potassium Chloride Carbon Dioxide BUN Creatinine Glucose POC Glucose 119 H 155 H 124 H Lactic Acid Calcium Phosphorus Magnesium Direct Bilirubin AST ALT Alkaline Phosphatase Lactate Dehydrogenase Troponin T C-Reactive Protein Total Protein Albumin Prealbumin Triglycerides Cholesterol LDL Cholesterol Direct HDL Cholesterol Urine pH Urine WBC (Auto) Urine Creatinine Urine Total Protein Fluid Total Protein Vancomycin Trough Rheumatoid Factor Complement C4 Miscellaneous Test Crossmatch 10/19/16 10/19/16 10/19/16 04:00 04:00 05:25 WBC 17.4 H RBC 2.54 L Hgb 7.7 L Hct 23.6 L MCV MCH MCHC RDW 17.3 H Plt Count Lymph % (Auto) [place] % (Auto) Lymph # [place] # Baso # Seg Neutrophils % Seg Neuts % (Manual) Lymphocytes % (Manual) Monocytes % (Manual) Eosinophils % (Manual) Basophils % (Manual) Nucleated RBC % Seg Neutrophils # Seg Neutrophils # Man Lymphocytes # (Manual) Monocytes # (Manual) Eosinophils # (Manual) Basophils # (Manual) PT INR Fibrinogen dRVVT Confirm Interp Factor V Activity POC ABG pH POC ABG pCO2 POC ABG pO2 ABG pO2 ABG HCO3 ABG Base Excess ABG Hemoglobin Oxyhemoglobin Sodium Potassium Chloride Carbon Dioxide BUN 72 H Creatinine 2.1 H Glucose 116 H POC Glucose 119 H Lactic Acid Calcium Phosphorus Magnesium Direct Bilirubin AST ALT Alkaline Phosphatase Lactate Dehydrogenase Troponin T C-Reactive Protein Total Protein Albumin Prealbumin Triglycerides Cholesterol LDL Cholesterol Direct HDL Cholesterol Urine pH Urine WBC (Auto) Urine Creatinine Urine Total Protein Fluid Total Protein Vancomycin Trough Rheumatoid Factor Complement C4 Miscellaneous Test Crossmatch 10/19/16 10/19/16 10/20/16 11:46 23:59 06:00 WBC RBC Hgb Hct MCV MCH MCHC RDW Plt Count Lymph % (Auto) [place] % (Auto) Lymph # [place] # Baso # Seg Neutrophils % Seg Neuts % (Manual) Lymphocytes % (Manual) Monocytes % (Manual) Eosinophils % (Manual) Basophils % (Manual) Nucleated RBC % Seg Neutrophils # Seg Neutrophils # Man Lymphocytes # (Manual) Monocytes # (Manual) Eosinophils # (Manual) Basophils # (Manual) PT INR Fibrinogen dRVVT Confirm Interp Factor V Activity POC ABG pH POC ABG pCO2 POC ABG pO2 ABG pO2 ABG HCO3 ABG Base Excess ABG Hemoglobin Oxyhemoglobin Sodium Potassium Chloride Carbon Dioxide 17 L BUN 94 H Creatinine 2.7 H Glucose POC Glucose 116 H 117 H Lactic Acid Calcium Phosphorus Magnesium Direct Bilirubin AST ALT Alkaline Phosphatase Lactate Dehydrogenase Troponin T C-Reactive Protein Total Protein Albumin Prealbumin Triglycerides Cholesterol LDL Cholesterol Direct HDL Cholesterol Urine pH Urine WBC (Auto) Urine Creatinine Urine Total Protein Fluid Total Protein Vancomycin Trough Rheumatoid Factor Complement C4 Miscellaneous Test Crossmatch 10/20/16 10/20/16 10/20/16 06:00 11:49 16:00 WBC 19.7 H RBC 2.51 L Hgb 7.7 L Hct 23.5 L MCV MCH MCHC RDW 17.5 H Plt Count Lymph % (Auto) [place] % (Auto) Lymph # [place] # Baso # Seg Neutrophils % Seg Neuts % (Manual) Lymphocytes % (Manual) Monocytes % (Manual) Eosinophils % (Manual) Basophils % (Manual) Nucleated RBC % Seg Neutrophils # Seg Neutrophils # Man Lymphocytes # (Manual) Monocytes # (Manual) Eosinophils # (Manual) Basophils # (Manual) PT INR Fibrinogen dRVVT Confirm Interp Factor V Activity POC ABG pH POC ABG pCO2 POC ABG pO2 ABG pO2 ABG HCO3 ABG Base Excess ABG Hemoglobin Oxyhemoglobin Sodium Potassium Chloride Carbon Dioxide BUN Creatinine Glucose POC Glucose 117 H Lactic Acid Calcium Phosphorus Magnesium Direct Bilirubin AST ALT Alkaline Phosphatase Lactate Dehydrogenase Troponin T C-Reactive Protein Total Protein Albumin Prealbumin Triglycerides Cholesterol LDL Cholesterol Direct HDL Cholesterol Urine pH Urine WBC (Auto) Urine Creatinine Urine Total Protein Fluid Total Protein Vancomycin Trough Rheumatoid Factor Complement C4 Miscellaneous Test Flexitest 1 H Crossmatch 10/20/16 10/20/16 10/21/16 18:36 23:39 04:00 WBC RBC Hgb Hct MCV MCH MCHC RDW Plt Count Lymph % (Auto) [place] % (Auto) Lymph # [place] # Baso # Seg Neutrophils % Seg Neuts % (Manual) Lymphocytes % (Manual) Monocytes % (Manual) Eosinophils % (Manual) Basophils % (Manual) Nucleated RBC % Seg Neutrophils # Seg Neutrophils # Man Lymphocytes # (Manual) Monocytes # (Manual) Eosinophils # (Manual) Basophils # (Manual) PT INR Fibrinogen dRVVT Confirm Interp Factor V Activity POC ABG pH POC ABG pCO2 POC ABG pO2 ABG pO2 ABG HCO3 ABG Base Excess ABG Hemoglobin Oxyhemoglobin Sodium Potassium 5.4 H D Chloride Carbon Dioxide 15 L BUN 110 H Creatinine 3.0 H Glucose POC Glucose 127 H 114 H Lactic Acid Calcium Phosphorus Magnesium Direct Bilirubin AST ALT Alkaline Phosphatase Lactate Dehydrogenase Troponin T C-Reactive Protein Total Protein Albumin Prealbumin Triglycerides Cholesterol LDL Cholesterol Direct HDL Cholesterol Urine pH Urine WBC (Auto) Urine Creatinine Urine Total Protein Fluid Total Protein Vancomycin Trough Rheumatoid Factor Complement C4 Miscellaneous Test Crossmatch 10/21/16 10/21/16 10/22/16 05:54 23:46 05:18 WBC RBC Hgb Hct MCV MCH MCHC RDW Plt Count Lymph % (Auto) [place] % (Auto) Lymph # [place] # Baso # Seg Neutrophils % Seg Neuts % (Manual) Lymphocytes % (Manual) Monocytes % (Manual) Eosinophils % (Manual) Basophils % (Manual) Nucleated RBC % Seg Neutrophils # Seg Neutrophils # Man Lymphocytes # (Manual) Monocytes # (Manual) Eosinophils # (Manual) Basophils # (Manual) PT INR Fibrinogen dRVVT Confirm Interp Factor V Activity POC ABG pH POC ABG pCO2 POC ABG pO2 ABG pO2 ABG HCO3 ABG Base Excess ABG Hemoglobin Oxyhemoglobin Sodium Potassium Chloride Carbon Dioxide BUN Creatinine Glucose POC Glucose 119 H 108 H 109 H Lactic Acid Calcium Phosphorus Magnesium Direct Bilirubin AST ALT Alkaline Phosphatase Lactate Dehydrogenase Troponin T C-Reactive Protein Total Protein Albumin Prealbumin Triglycerides Cholesterol LDL Cholesterol Direct HDL Cholesterol Urine pH Urine WBC (Auto) Urine Creatinine Urine Total Protein Fluid Total Protein Vancomycin Trough Rheumatoid Factor Complement C4 Miscellaneous Test Crossmatch 10/22/16 10/22/16 10/22/16 06:40 06:40 06:40 WBC 14.0 H RBC 2.03 L Hgb 7.0 L Hct 20.5 L MCV 98 H MCH 34 H MCHC 35 H RDW 17.8 H Plt Count Lymph % (Auto) [place] % (Auto) 9.9 H Lymph # [place] # 1.4 H Baso # 0.2 H Seg Neutrophils % 72.0 H Seg Neuts % (Manual) Lymphocytes % (Manual) Monocytes % (Manual) Eosinophils % (Manual) Basophils % (Manual) Nucleated RBC % Seg Neutrophils # 10.0 H Seg Neutrophils # Man Lymphocytes # (Manual) Monocytes # (Manual) Eosinophils # (Manual) Basophils # (Manual) PT INR Fibrinogen dRVVT Confirm Interp Factor V Activity POC ABG pH POC ABG pCO2 POC ABG pO2 ABG pO2 ABG HCO3 ABG Base Excess ABG Hemoglobin Oxyhemoglobin Sodium 130 L D Potassium Chloride 92.4 L Carbon Dioxide 20 L BUN 50 H Creatinine 1.6 H Glucose 589 H* POC Glucose Lactic Acid Calcium 7.8 L D Phosphorus Magnesium 1.60 L Direct Bilirubin AST ALT Alkaline Phosphatase Lactate Dehydrogenase Troponin T C-Reactive Protein Total Protein Albumin Prealbumin Triglycerides Cholesterol LDL Cholesterol Direct HDL Cholesterol Urine pH Urine WBC (Auto) Urine Creatinine Urine Total Protein Fluid Total Protein Vancomycin Trough Rheumatoid Factor Complement C4 Miscellaneous Test Crossmatch 10/22/16 10/22/16 10/22/16 11:39 16:44 23:36 WBC RBC Hgb Hct MCV MCH MCHC RDW Plt Count Lymph % (Auto) [place] % (Auto) Lymph # [place] # Baso # Seg Neutrophils % Seg Neuts % (Manual) Lymphocytes % (Manual) Monocytes % (Manual) Eosinophils % (Manual) Basophils % (Manual) Nucleated RBC % Seg Neutrophils # Seg Neutrophils # Man Lymphocytes # (Manual) Monocytes # (Manual) Eosinophils # (Manual) Basophils # (Manual) PT INR Fibrinogen dRVVT Confirm Interp Factor V Activity POC ABG pH POC ABG pCO2 POC ABG pO2 ABG pO2 ABG HCO3 ABG Base Excess ABG Hemoglobin Oxyhemoglobin Sodium Potassium Chloride Carbon Dioxide BUN Creatinine Glucose POC Glucose 142 H 163 H 123 H Lactic Acid Calcium Phosphorus Magnesium Direct Bilirubin AST ALT Alkaline Phosphatase Lactate Dehydrogenase Troponin T C-Reactive Protein Total Protein Albumin Prealbumin Triglycerides Cholesterol LDL Cholesterol Direct HDL Cholesterol Urine pH Urine WBC (Auto) Urine Creatinine Urine Total Protein Fluid Total Protein Vancomycin Trough Rheumatoid Factor Complement C4 Miscellaneous Test Crossmatch 10/23/16 10/23/16 10/23/16 04:58 06:00 12:12 WBC RBC Hgb Hct MCV MCH MCHC RDW Plt Count Lymph % (Auto) [place] % (Auto) Lymph # [place] # Baso # Seg Neutrophils % Seg Neuts % (Manual) Lymphocytes % (Manual) Monocytes % (Manual) Eosinophils % (Manual) Basophils % (Manual) Nucleated RBC % Seg Neutrophils # Seg Neutrophils # Man Lymphocytes # (Manual) Monocytes # (Manual) Eosinophils # (Manual) Basophils # (Manual) PT INR Fibrinogen dRVVT Confirm Interp Factor V Activity POC ABG pH POC ABG pCO2 POC ABG pO2 ABG pO2 ABG HCO3 ABG Base Excess ABG Hemoglobin Oxyhemoglobin Sodium 133 L Potassium 3.5 L Chloride 96.1 L Carbon Dioxide 18 L BUN 76 H Creatinine 2.1 H Glucose POC Glucose 133 H 138 H Lactic Acid Calcium 8.3 L Phosphorus Magnesium Direct Bilirubin AST ALT Alkaline Phosphatase Lactate Dehydrogenase Troponin T C-Reactive Protein Total Protein Albumin Prealbumin Triglycerides Cholesterol LDL Cholesterol Direct HDL Cholesterol Urine pH Urine WBC (Auto) Urine Creatinine Urine Total Protein Fluid Total Protein Vancomycin Trough Rheumatoid Factor Complement C4 Miscellaneous Test Crossmatch 10/23/16 10/23/16 10/24/16 16:53 23:37 04:00 WBC RBC Hgb Hct MCV MCH MCHC RDW Plt Count Lymph % (Auto) [place] % (Auto) Lymph # [place] # Baso # Seg Neutrophils % Seg Neuts % (Manual) Lymphocytes % (Manual) Monocytes % (Manual) Eosinophils % (Manual) Basophils % (Manual) Nucleated RBC % Seg Neutrophils # Seg Neutrophils # Man Lymphocytes # (Manual) Monocytes # (Manual) Eosinophils # (Manual) Basophils # (Manual) PT INR Fibrinogen dRVVT Confirm Interp Factor V Activity POC ABG pH POC ABG pCO2 POC ABG pO2 ABG pO2 ABG HCO3 ABG Base Excess ABG Hemoglobin Oxyhemoglobin Sodium 131 L Potassium Chloride 94.5 L Carbon Dioxide 19 L BUN 97 H Creatinine 2.6 H Glucose 110 H POC Glucose 125 H 123 H Lactic Acid Calcium 8.3 L Phosphorus Magnesium Direct Bilirubin AST ALT Alkaline Phosphatase Lactate Dehydrogenase Troponin T C-Reactive Protein Total Protein Albumin Prealbumin Triglycerides Cholesterol LDL Cholesterol Direct HDL Cholesterol Urine pH Urine WBC (Auto) Urine Creatinine Urine Total Protein Fluid Total Protein Vancomycin Trough Rheumatoid Factor Complement C4 Miscellaneous Test Crossmatch 10/24/16 10/24/16 10/24/16 07:49 11:39 17:52 WBC RBC Hgb 6.0 L Hct 19.7 L* MCV MCH MCHC RDW Plt Count Lymph % (Auto) [place] % (Auto) Lymph # [place] # Baso # Seg Neutrophils % Seg Neuts % (Manual) Lymphocytes % (Manual) Monocytes % (Manual) Eosinophils % (Manual) Basophils % (Manual) Nucleated RBC % Seg Neutrophils # Seg Neutrophils # Man Lymphocytes # (Manual) Monocytes # (Manual) Eosinophils # (Manual) Basophils # (Manual) PT INR Fibrinogen dRVVT Confirm Interp Factor V Activity POC ABG pH POC ABG pCO2 POC ABG pO2 ABG pO2 ABG HCO3 ABG Base Excess ABG Hemoglobin Oxyhemoglobin Sodium Potassium Chloride Carbon Dioxide BUN Creatinine Glucose POC Glucose 106 H 158 H Lactic Acid Calcium Phosphorus Magnesium Direct Bilirubin AST ALT Alkaline Phosphatase Lactate Dehydrogenase Troponin T C-Reactive Protein Total Protein Albumin Prealbumin Triglycerides Cholesterol LDL Cholesterol Direct HDL Cholesterol Urine pH Urine WBC (Auto) Urine Creatinine Urine Total Protein Fluid Total Protein Vancomycin Trough Rheumatoid Factor Complement C4 Miscellaneous Test Crossmatch 10/24/16 10/24/16 10/24/16 20:00 22:27 Unknown WBC RBC Hgb 9.4 L D Hct 27.5 L D MCV MCH MCHC RDW Plt Count Lymph % (Auto) [place] % (Auto) Lymph # [place] # Baso # Seg Neutrophils % Seg Neuts % (Manual) Lymphocytes % (Manual) Monocytes % (Manual) Eosinophils % (Manual) Basophils % (Manual) Nucleated RBC % Seg Neutrophils # Seg Neutrophils # Man Lymphocytes # (Manual) Monocytes # (Manual) Eosinophils # (Manual) Basophils # (Manual) PT INR Fibrinogen dRVVT Confirm Interp Factor V Activity POC ABG pH POC ABG pCO2 POC ABG pO2 ABG pO2 ABG HCO3 ABG Base Excess ABG Hemoglobin Oxyhemoglobin Sodium Potassium Chloride Carbon Dioxide BUN Creatinine Glucose POC Glucose 125 H Lactic Acid Calcium Phosphorus Magnesium Direct Bilirubin AST ALT Alkaline Phosphatase Lactate Dehydrogenase Troponin T C-Reactive Protein Total Protein Albumin Prealbumin Triglycerides Cholesterol LDL Cholesterol Direct HDL Cholesterol Urine pH Urine WBC (Auto) Urine Creatinine Urine Total Protein Fluid Total Protein Vancomycin Trough Rheumatoid Factor Complement C4 Miscellaneous Test Crossmatch See Detail 10/25/16 10/25/16 10/25/16 04:00 04:00 04:00 WBC 14.2 H RBC 2.98 L Hgb 9.0 L Hct 26.2 L MCV MCH MCHC RDW 16.6 H Plt Count Lymph % (Auto) [place] % (Auto) 10.7 H Lymph # [place] # 1.5 H Baso # Seg Neutrophils % 73.6 H Seg Neuts % (Manual) Lymphocytes % (Manual) Monocytes % (Manual) Eosinophils % (Manual) Basophils % (Manual) Nucleated RBC % Seg Neutrophils # 10.5 H Seg Neutrophils # Man Lymphocytes # (Manual) Monocytes # (Manual) Eosinophils # (Manual) Basophils # (Manual) PT INR Fibrinogen dRVVT Confirm Interp Factor V Activity POC ABG pH POC ABG pCO2 POC ABG pO2 ABG pO2 ABG HCO3 ABG Base Excess ABG Hemoglobin Oxyhemoglobin Sodium 132 L Potassium Chloride 94.7 L Carbon Dioxide BUN 51 H Creatinine 1.6 H Glucose 130 H POC Glucose Lactic Acid Calcium 8.3 L Phosphorus 1.60 L D Magnesium Direct Bilirubin AST ALT Alkaline Phosphatase Lactate Dehydrogenase Troponin T C-Reactive Protein Total Protein Albumin Prealbumin Triglycerides Cholesterol LDL Cholesterol Direct HDL Cholesterol Urine pH Urine WBC (Auto) Urine Creatinine Urine Total Protein Fluid Total Protein Vancomycin Trough Rheumatoid Factor Complement C4 Miscellaneous Test Crossmatch 10/25/16 10/25/16 10/25/16 04:32 11:48 17:22 WBC RBC Hgb Hct MCV MCH MCHC RDW Plt Count Lymph % (Auto) [place] % (Auto) Lymph # [place] # Baso # Seg Neutrophils % Seg Neuts % (Manual) Lymphocytes % (Manual) Monocytes % (Manual) Eosinophils % (Manual) Basophils % (Manual) Nucleated RBC % Seg Neutrophils # Seg Neutrophils # Man Lymphocytes # (Manual) Monocytes # (Manual) Eosinophils # (Manual) Basophils # (Manual) PT INR Fibrinogen dRVVT Confirm Interp Factor V Activity POC ABG pH POC ABG pCO2 POC ABG pO2 ABG pO2 ABG HCO3 ABG Base Excess ABG Hemoglobin Oxyhemoglobin Sodium Potassium Chloride Carbon Dioxide BUN Creatinine Glucose POC Glucose 124 H 171 H 120 H Lactic Acid Calcium Phosphorus Magnesium Direct Bilirubin AST ALT Alkaline Phosphatase Lactate Dehydrogenase Troponin T C-Reactive Protein Total Protein Albumin Prealbumin Triglycerides Cholesterol LDL Cholesterol Direct HDL Cholesterol Urine pH Urine WBC (Auto) Urine Creatinine Urine Total Protein Fluid Total Protein Vancomycin Trough Rheumatoid Factor Complement C4 Miscellaneous Test Crossmatch 10/26/16 10/26/16 10/26/16 04:54 07:06 07:06 WBC 16.9 H RBC 3.06 L Hgb 9.1 L Hct 26.9 L MCV MCH MCHC RDW 16.9 H Plt Count Lymph % (Auto) [place] % (Auto) Lymph # [place] # Baso # Seg Neutrophils % Seg Neuts % (Manual) 71.0 H Lymphocytes % (Manual) 5.0 L Monocytes % (Manual) 12.0 H Eosinophils % (Manual) Basophils % (Manual) Nucleated RBC % Seg Neutrophils # Seg Neutrophils # Man 12.0 H Lymphocytes # (Manual) 0.8 L Monocytes # (Manual) 2.0 H Eosinophils # (Manual) Basophils # (Manual) PT INR Fibrinogen dRVVT Confirm Interp Factor V Activity POC ABG pH POC ABG pCO2 POC ABG pO2 ABG pO2 ABG HCO3 ABG Base Excess ABG Hemoglobin Oxyhemoglobin Sodium 135 L Potassium Chloride 97.1 L Carbon Dioxide BUN 73 H Creatinine 2.2 H Glucose 117 H POC Glucose 123 H Lactic Acid Calcium Phosphorus 1.70 L Magnesium Direct Bilirubin AST ALT Alkaline Phosphatase Lactate Dehydrogenase Troponin T C-Reactive Protein Total Protein Albumin Prealbumin Triglycerides Cholesterol LDL Cholesterol Direct HDL Cholesterol Urine pH Urine WBC (Auto) Urine Creatinine Urine Total Protein Fluid Total Protein Vancomycin Trough Rheumatoid Factor Complement C4 Miscellaneous Test Crossmatch 10/26/16 10/26/16 10/26/16 12:12 17:29 23:42 WBC RBC Hgb Hct MCV MCH MCHC RDW Plt Count Lymph % (Auto) [place] % (Auto) Lymph # [place] # Baso # Seg Neutrophils % Seg Neuts % (Manual) Lymphocytes % (Manual) Monocytes % (Manual) Eosinophils % (Manual) Basophils % (Manual) Nucleated RBC % Seg Neutrophils # Seg Neutrophils # Man Lymphocytes # (Manual) Monocytes # (Manual) Eosinophils # (Manual) Basophils # (Manual) PT INR Fibrinogen dRVVT Confirm Interp Factor V Activity POC ABG pH POC ABG pCO2 POC ABG pO2 ABG pO2 ABG HCO3 ABG Base Excess ABG Hemoglobin Oxyhemoglobin Sodium Potassium Chloride Carbon Dioxide BUN Creatinine Glucose POC Glucose 126 H 161 H 118 H Lactic Acid Calcium Phosphorus Magnesium Direct Bilirubin AST ALT Alkaline Phosphatase Lactate Dehydrogenase Troponin T C-Reactive Protein Total Protein Albumin Prealbumin Triglycerides Cholesterol LDL Cholesterol Direct HDL Cholesterol Urine pH Urine WBC (Auto) Urine Creatinine Urine Total Protein Fluid Total Protein Vancomycin Trough Rheumatoid Factor Complement C4 Miscellaneous Test Crossmatch 10/27/16 10/27/16 10/27/16 05:03 06:30 06:30 WBC 13.9 H RBC 3.09 L Hgb 9.2 L Hct 27.5 L MCV MCH MCHC RDW 17.0 H Plt Count Lymph % (Auto) [place] % (Auto) Lymph # [place] # Baso # Seg Neutrophils % Seg Neuts % (Manual) 78.0 H Lymphocytes % (Manual) Monocytes % (Manual) Eosinophils % (Manual) Basophils % (Manual) Nucleated RBC % 2.0 H Seg Neutrophils # Seg Neutrophils # Man 10.8 H Lymphocytes # (Manual) Monocytes # (Manual) 1.0 H Eosinophils # (Manual) Basophils # (Manual) PT INR Fibrinogen dRVVT Confirm Interp Factor V Activity POC ABG pH POC ABG pCO2 POC ABG pO2 ABG pO2 ABG HCO3 ABG Base Excess ABG Hemoglobin Oxyhemoglobin Sodium Potassium Chloride Carbon Dioxide BUN 40 H Creatinine 1.5 H Glucose 135 H POC Glucose 107 H Lactic Acid Calcium 8.3 L Phosphorus 1.30 L D Magnesium Direct Bilirubin AST ALT Alkaline Phosphatase Lactate Dehydrogenase Troponin T C-Reactive Protein Total Protein Albumin Prealbumin Triglycerides Cholesterol LDL Cholesterol Direct HDL Cholesterol Urine pH Urine WBC (Auto) Urine Creatinine Urine Total Protein Fluid Total Protein Vancomycin Trough Rheumatoid Factor Complement C4 Miscellaneous Test Crossmatch 10/27/16 10/27/16 10/27/16 13:27 18:07 23:40 WBC RBC Hgb Hct MCV MCH MCHC RDW Plt Count Lymph % (Auto) [place] % (Auto) Lymph # [place] # Baso # Seg Neutrophils % Seg Neuts % (Manual) Lymphocytes % (Manual) Monocytes % (Manual) Eosinophils % (Manual) Basophils % (Manual) Nucleated RBC % Seg Neutrophils # Seg Neutrophils # Man Lymphocytes # (Manual) Monocytes # (Manual) Eosinophils # (Manual) Basophils # (Manual) PT INR Fibrinogen dRVVT Confirm Interp Factor V Activity POC ABG pH POC ABG pCO2 POC ABG pO2 ABG pO2 ABG HCO3 ABG Base Excess ABG Hemoglobin Oxyhemoglobin Sodium Potassium Chloride Carbon Dioxide BUN Creatinine Glucose POC Glucose 117 H 121 H 118 H Lactic Acid Calcium Phosphorus Magnesium Direct Bilirubin AST ALT Alkaline Phosphatase Lactate Dehydrogenase Troponin T C-Reactive Protein Total Protein Albumin Prealbumin Triglycerides Cholesterol LDL Cholesterol Direct HDL Cholesterol Urine pH Urine WBC (Auto) Urine Creatinine Urine Total Protein Fluid Total Protein Vancomycin Trough Rheumatoid Factor Complement C4 Miscellaneous Test Crossmatch 10/28/16 10/28/16 10/28/16 05:48 06:45 06:45 WBC 14.7 H RBC 3.05 L Hgb 9.0 L Hct 26.9 L MCV MCH MCHC RDW 16.8 H Plt Count Lymph % (Auto) 8.2 L [place] % (Auto) 8.4 H Lymph # [place] # 1.2 H Baso # Seg Neutrophils % 81.9 H Seg Neuts % (Manual) Lymphocytes % (Manual) Monocytes % (Manual) Eosinophils % (Manual) Basophils % (Manual) Nucleated RBC % Seg Neutrophils # 12.1 H Seg Neutrophils # Man Lymphocytes # (Manual) Monocytes # (Manual) Eosinophils # (Manual) Basophils # (Manual) PT INR Fibrinogen dRVVT Confirm Interp Factor V Activity POC ABG pH POC ABG pCO2 POC ABG pO2 ABG pO2 ABG HCO3 ABG Base Excess ABG Hemoglobin Oxyhemoglobin Sodium Potassium Chloride Carbon Dioxide BUN 60 H Creatinine 1.9 H Glucose 120 H POC Glucose 114 H Lactic Acid Calcium Phosphorus Magnesium Direct Bilirubin AST ALT Alkaline Phosphatase Lactate Dehydrogenase Troponin T C-Reactive Protein Total Protein Albumin Prealbumin Triglycerides Cholesterol LDL Cholesterol Direct HDL Cholesterol Urine pH Urine WBC (Auto) Urine Creatinine Urine Total Protein Fluid Total Protein Vancomycin Trough Rheumatoid Factor Complement C4 Miscellaneous Test Crossmatch 10/28/16 10/28/16 10/29/16 17:08 23:50 05:10 WBC RBC Hgb Hct MCV MCH MCHC RDW Plt Count Lymph % (Auto) [place] % (Auto) Lymph # [place] # Baso # Seg Neutrophils % Seg Neuts % (Manual) Lymphocytes % (Manual) Monocytes % (Manual) Eosinophils % (Manual) Basophils % (Manual) Nucleated RBC % Seg Neutrophils # Seg Neutrophils # Man Lymphocytes # (Manual) Monocytes # (Manual) Eosinophils # (Manual) Basophils # (Manual) PT INR Fibrinogen dRVVT Confirm Interp Factor V Activity POC ABG pH POC ABG pCO2 POC ABG pO2 ABG pO2 ABG HCO3 ABG Base Excess ABG Hemoglobin Oxyhemoglobin Sodium Potassium Chloride Carbon Dioxide BUN Creatinine Glucose POC Glucose 109 H 110 H 124 H Lactic Acid Calcium Phosphorus Magnesium Direct Bilirubin AST ALT Alkaline Phosphatase Lactate Dehydrogenase Troponin T C-Reactive Protein Total Protein Albumin Prealbumin Triglycerides Cholesterol LDL Cholesterol Direct HDL Cholesterol Urine pH Urine WBC (Auto) Urine Creatinine Urine Total Protein Fluid Total Protein Vancomycin Trough Rheumatoid Factor Complement C4 Miscellaneous Test Crossmatch 10/29/16 10/29/16 10/29/16 07:45 07:45 12:19 WBC 14.7 H RBC 3.15 L Hgb 9.3 L Hct 28.9 L MCV MCH MCHC RDW 17.0 H Plt Count Lymph % (Auto) 11.9 L [place] % (Auto) 8.6 H Lymph # [place] # 1.3 H Baso # Seg Neutrophils % 78.1 H Seg Neuts % (Manual) Lymphocytes % (Manual) Monocytes % (Manual) Eosinophils % (Manual) Basophils % (Manual) Nucleated RBC % Seg Neutrophils # 11.4 H Seg Neutrophils # Man Lymphocytes # (Manual) Monocytes # (Manual) Eosinophils # (Manual) Basophils # (Manual) PT INR Fibrinogen dRVVT Confirm Interp Factor V Activity POC ABG pH POC ABG pCO2 POC ABG pO2 ABG pO2 ABG HCO3 ABG Base Excess ABG Hemoglobin Oxyhemoglobin Sodium Potassium 5.1 H Chloride Carbon Dioxide 19 L BUN 78 H Creatinine 2.2 H Glucose 116 H POC Glucose 118 H Lactic Acid Calcium Phosphorus Magnesium Direct Bilirubin AST ALT Alkaline Phosphatase Lactate Dehydrogenase Troponin T C-Reactive Protein Total Protein Albumin Prealbumin Triglycerides Cholesterol LDL Cholesterol Direct HDL Cholesterol Urine pH Urine WBC (Auto) Urine Creatinine Urine Total Protein Fluid Total Protein Vancomycin Trough Rheumatoid Factor Complement C4 Miscellaneous Test Crossmatch 10/29/16 10/30/16 10/30/16 17:49 01:52 03:28 WBC RBC Hgb Hct MCV MCH MCHC RDW Plt Count Lymph % (Auto) [place] % (Auto) Lymph # [place] # Baso # Seg Neutrophils % Seg Neuts % (Manual) Lymphocytes % (Manual) Monocytes % (Manual) Eosinophils % (Manual) Basophils % (Manual) Nucleated RBC % Seg Neutrophils # Seg Neutrophils # Man Lymphocytes # (Manual) Monocytes # (Manual) Eosinophils # (Manual) Basophils # (Manual) PT INR Fibrinogen dRVVT Confirm Interp Factor V Activity POC ABG pH POC ABG pCO2 POC ABG pO2 ABG pO2 ABG HCO3 ABG Base Excess ABG Hemoglobin Oxyhemoglobin Sodium Potassium 5.4 H Chloride 97.5 L Carbon Dioxide 19 L BUN 90 H Creatinine 2.5 H Glucose POC Glucose 120 H 129 H Lactic Acid Calcium Phosphorus 5.20 H Magnesium Direct Bilirubin AST ALT Alkaline Phosphatase Lactate Dehydrogenase Troponin T C-Reactive Protein Total Protein Albumin Prealbumin Triglycerides Cholesterol LDL Cholesterol Direct HDL Cholesterol Urine pH Urine WBC (Auto) Urine Creatinine Urine Total Protein Fluid Total Protein Vancomycin Trough Rheumatoid Factor Complement C4 Miscellaneous Test Crossmatch 10/30/16 10/30/16 10/30/16 03:28 08:19 08:19 WBC 11.6 H 15.9 H RBC 2.75 L 2.82 L Hgb 7.9 L 8.3 L Hct 24.2 L 25.2 L MCV MCH MCHC RDW 16.7 H 17.2 H Plt Count Lymph % (Auto) [place] % (Auto) 9.8 H Lymph # [place] # 1.1 H Baso # Seg Neutrophils % 74.2 H Seg Neuts % (Manual) Lymphocytes % (Manual) Monocytes % (Manual) Eosinophils % (Manual) Basophils % (Manual) Nucleated RBC % Seg Neutrophils # 8.6 H Seg Neutrophils # Man Lymphocytes # (Manual) Monocytes # (Manual) Eosinophils # (Manual) Basophils # (Manual) PT INR Fibrinogen dRVVT Confirm Interp Factor V Activity POC ABG pH POC ABG pCO2 POC ABG pO2 ABG pO2 ABG HCO3 ABG Base Excess ABG Hemoglobin Oxyhemoglobin Sodium Potassium 5.3 H Chloride 97.4 L Carbon Dioxide 19 L BUN 93 H Creatinine 2.6 H Glucose POC Glucose Lactic Acid Calcium Phosphorus Magnesium Direct Bilirubin AST ALT Alkaline Phosphatase Lactate Dehydrogenase Troponin T C-Reactive Protein Total Protein Albumin Prealbumin Triglycerides Cholesterol LDL Cholesterol Direct HDL Cholesterol Urine pH Urine WBC (Auto) Urine Creatinine Urine Total Protein Fluid Total Protein Vancomycin Trough Rheumatoid Factor Complement C4 Miscellaneous Test Crossmatch 10/30/16 10/30/16 10/31/16 17:11 23:56 00:40 WBC RBC Hgb Hct MCV MCH MCHC RDW Plt Count Lymph % (Auto) [place] % (Auto) Lymph # [place] # Baso # Seg Neutrophils % Seg Neuts % (Manual) Lymphocytes % (Manual) Monocytes % (Manual) Eosinophils % (Manual) Basophils % (Manual) Nucleated RBC % Seg Neutrophils # Seg Neutrophils # Man Lymphocytes # (Manual) Monocytes # (Manual) Eosinophils # (Manual) Basophils # (Manual) PT INR Fibrinogen dRVVT Confirm Interp Factor V Activity POC ABG pH POC ABG pCO2 POC ABG pO2 ABG pO2 ABG HCO3 ABG Base Excess ABG Hemoglobin Oxyhemoglobin Sodium Potassium Chloride Carbon Dioxide BUN Creatinine Glucose POC Glucose 106 H 117 H 120 H Lactic Acid Calcium Phosphorus Magnesium Direct Bilirubin AST ALT Alkaline Phosphatase Lactate Dehydrogenase Troponin T C-Reactive Protein Total Protein Albumin Prealbumin Triglycerides Cholesterol LDL Cholesterol Direct HDL Cholesterol Urine pH Urine WBC (Auto) Urine Creatinine Urine Total Protein Fluid Total Protein Vancomycin Trough Rheumatoid Factor Complement C4 Miscellaneous Test Crossmatch 10/31/16 10/31/16 10/31/16 05:43 07:15 07:15 WBC 12.1 H RBC 2.63 L Hgb 7.7 L Hct 23.3 L MCV MCH MCHC RDW 16.7 H Plt Count Lymph % (Auto) 11.7 L [place] % (Auto) 7.7 H Lymph # [place] # 0.9 H Baso # Seg Neutrophils % 78.0 H Seg Neuts % (Manual) Lymphocytes % (Manual) Monocytes % (Manual) Eosinophils % (Manual) Basophils % (Manual) Nucleated RBC % Seg Neutrophils # 9.4 H Seg Neutrophils # Man Lymphocytes # (Manual) Monocytes # (Manual) Eosinophils # (Manual) Basophils # (Manual) PT INR Fibrinogen dRVVT Confirm Interp Factor V Activity POC ABG pH POC ABG pCO2 POC ABG pO2 ABG pO2 ABG HCO3 ABG Base Excess ABG Hemoglobin Oxyhemoglobin Sodium Potassium Chloride 96.4 L Carbon Dioxide 21 L BUN 99 H Creatinine 2.6 H Glucose 144 H POC Glucose 125 H Lactic Acid Calcium Phosphorus 4.80 H Magnesium Direct Bilirubin AST ALT Alkaline Phosphatase Lactate Dehydrogenase Troponin T C-Reactive Protein Total Protein Albumin Prealbumin Triglycerides Cholesterol LDL Cholesterol Direct HDL Cholesterol Urine pH Urine WBC (Auto) Urine Creatinine Urine Total Protein Fluid Total Protein Vancomycin Trough Rheumatoid Factor Complement C4 Miscellaneous Test Crossmatch 10/31/16 10/31/16 11/01/16 11:46 18:34 00:20 WBC RBC Hgb Hct MCV MCH MCHC RDW Plt Count Lymph % (Auto) [place] % (Auto) Lymph # [place] # Baso # Seg Neutrophils % Seg Neuts % (Manual) Lymphocytes % (Manual) Monocytes % (Manual) Eosinophils % (Manual) Basophils % (Manual) Nucleated RBC % Seg Neutrophils # Seg Neutrophils # Man Lymphocytes # (Manual) Monocytes # (Manual) Eosinophils # (Manual) Basophils # (Manual) PT INR Fibrinogen dRVVT Confirm Interp Factor V Activity POC ABG pH POC ABG pCO2 POC ABG pO2 ABG pO2 ABG HCO3 ABG Base Excess ABG Hemoglobin Oxyhemoglobin Sodium Potassium Chloride Carbon Dioxide BUN Creatinine Glucose POC Glucose 159 H 140 H 132 H Lactic Acid Calcium Phosphorus Magnesium Direct Bilirubin AST ALT Alkaline Phosphatase Lactate Dehydrogenase Troponin T C-Reactive Protein Total Protein Albumin Prealbumin Triglycerides Cholesterol LDL Cholesterol Direct HDL Cholesterol Urine pH Urine WBC (Auto) Urine Creatinine Urine Total Protein Fluid Total Protein Vancomycin Trough Rheumatoid Factor Complement C4 Miscellaneous Test Crossmatch 11/01/16 11/01/16 11/01/16 04:55 04:55 06:11 WBC 11.2 H RBC 2.68 L Hgb 7.5 L Hct 23.7 L MCV MCH MCHC RDW 16.1 H Plt Count Lymph % (Auto) [place] % (Auto) 9.8 H Lymph # [place] # 1.1 H Baso # Seg Neutrophils % 70.8 H Seg Neuts % (Manual) Lymphocytes % (Manual) Monocytes % (Manual) Eosinophils % (Manual) Basophils % (Manual) Nucleated RBC % Seg Neutrophils # 7.9 H Seg Neutrophils # Man Lymphocytes # (Manual) Monocytes # (Manual) Eosinophils # (Manual) Basophils # (Manual) PT INR Fibrinogen dRVVT Confirm Interp Factor V Activity POC ABG pH POC ABG pCO2 POC ABG pO2 ABG pO2 ABG HCO3 ABG Base Excess ABG Hemoglobin Oxyhemoglobin Sodium Potassium 3.3 L D Chloride Carbon Dioxide BUN 61 H Creatinine 1.9 H Glucose 114 H POC Glucose 115 H Lactic Acid Calcium Phosphorus 1.80 L D Magnesium Direct Bilirubin AST ALT Alkaline Phosphatase Lactate Dehydrogenase Troponin T C-Reactive Protein Total Protein Albumin Prealbumin Triglycerides Cholesterol LDL Cholesterol Direct HDL Cholesterol Urine pH Urine WBC (Auto) Urine Creatinine Urine Total Protein Fluid Total Protein Vancomycin Trough Rheumatoid Factor Complement C4 Miscellaneous Test Crossmatch 11/01/16 11/01/16 11/01/16 12:29 18:23 23:58 WBC RBC Hgb Hct MCV MCH MCHC RDW Plt Count Lymph % (Auto) [place] % (Auto) Lymph # [place] # Baso # Seg Neutrophils % Seg Neuts % (Manual) Lymphocytes % (Manual) Monocytes % (Manual) Eosinophils % (Manual) Basophils % (Manual) Nucleated RBC % Seg Neutrophils # Seg Neutrophils # Man Lymphocytes # (Manual) Monocytes # (Manual) Eosinophils # (Manual) Basophils # (Manual) PT INR Fibrinogen dRVVT Confirm Interp Factor V Activity POC ABG pH POC ABG pCO2 POC ABG pO2 ABG pO2 ABG HCO3 ABG Base Excess ABG Hemoglobin Oxyhemoglobin Sodium Potassium Chloride Carbon Dioxide BUN Creatinine Glucose POC Glucose 142 H 143 H 128 H Lactic Acid Calcium Phosphorus Magnesium Direct Bilirubin AST ALT Alkaline Phosphatase Lactate Dehydrogenase Troponin T C-Reactive Protein Total Protein Albumin Prealbumin Triglycerides Cholesterol LDL Cholesterol Direct HDL Cholesterol Urine pH Urine WBC (Auto) Urine Creatinine Urine Total Protein Fluid Total Protein Vancomycin Trough Rheumatoid Factor Complement C4 Miscellaneous Test Crossmatch 11/02/16 11/02/16 11/02/16 04:16 05:29 11:58 WBC RBC Hgb Hct MCV MCH MCHC RDW Plt Count Lymph % (Auto) [place] % (Auto) Lymph # [place] # Baso # Seg Neutrophils % Seg Neuts % (Manual) Lymphocytes % (Manual) Monocytes % (Manual) Eosinophils % (Manual) Basophils % (Manual) Nucleated RBC % Seg Neutrophils # Seg Neutrophils # Man Lymphocytes # (Manual) Monocytes # (Manual) Eosinophils # (Manual) Basophils # (Manual) PT INR Fibrinogen dRVVT Confirm Interp Factor V Activity POC ABG pH POC ABG pCO2 POC ABG pO2 ABG pO2 ABG HCO3 ABG Base Excess ABG Hemoglobin Oxyhemoglobin Sodium Potassium 3.1 L Chloride Carbon Dioxide BUN 73 H Creatinine 2.3 H Glucose 112 H POC Glucose 135 H 149 H Lactic Acid Calcium Phosphorus Magnesium Direct Bilirubin AST ALT Alkaline Phosphatase Lactate Dehydrogenase Troponin T C-Reactive Protein Total Protein Albumin Prealbumin Triglycerides Cholesterol LDL Cholesterol Direct HDL Cholesterol Urine pH Urine WBC (Auto) Urine Creatinine Urine Total Protein Fluid Total Protein Vancomycin Trough Rheumatoid Factor Complement C4 Miscellaneous Test Crossmatch 11/02/16 11/02/16 11/03/16 17:42 22:54 06:00 WBC RBC Hgb Hct MCV MCH MCHC RDW Plt Count Lymph % (Auto) [place] % (Auto) Lymph # [place] # Baso # Seg Neutrophils % Seg Neuts % (Manual) Lymphocytes % (Manual) Monocytes % (Manual) Eosinophils % (Manual) Basophils % (Manual) Nucleated RBC % Seg Neutrophils # Seg Neutrophils # Man Lymphocytes # (Manual) Monocytes # (Manual) Eosinophils # (Manual) Basophils # (Manual) PT INR Fibrinogen dRVVT Confirm Interp Factor V Activity POC ABG pH POC ABG pCO2 POC ABG pO2 ABG pO2 ABG HCO3 ABG Base Excess ABG Hemoglobin Oxyhemoglobin Sodium Potassium Chloride 96.7 L Carbon Dioxide BUN 41 H Creatinine 1.5 H Glucose 145 H POC Glucose 182 H 115 H Lactic Acid Calcium Phosphorus 1.60 L D Magnesium 1.50 L Direct Bilirubin AST ALT Alkaline Phosphatase Lactate Dehydrogenase Troponin T C-Reactive Protein Total Protein Albumin Prealbumin Triglycerides Cholesterol LDL Cholesterol Direct HDL Cholesterol Urine pH Urine WBC (Auto) Urine Creatinine Urine Total Protein Fluid Total Protein Vancomycin Trough Rheumatoid Factor Complement C4 Miscellaneous Test Crossmatch 11/03/16 11/03/16 11/03/16 11:53 17:45 23:37 WBC RBC Hgb Hct MCV MCH MCHC RDW Plt Count Lymph % (Auto) [place] % (Auto) Lymph # [place] # Baso # Seg Neutrophils % Seg Neuts % (Manual) Lymphocytes % (Manual) Monocytes % (Manual) Eosinophils % (Manual) Basophils % (Manual) Nucleated RBC % Seg Neutrophils # Seg Neutrophils # Man Lymphocytes # (Manual) Monocytes # (Manual) Eosinophils # (Manual) Basophils # (Manual) PT INR Fibrinogen dRVVT Confirm Interp Factor V Activity POC ABG pH POC ABG pCO2 POC ABG pO2 ABG pO2 ABG HCO3 ABG Base Excess ABG Hemoglobin Oxyhemoglobin Sodium Potassium Chloride Carbon Dioxide BUN Creatinine Glucose POC Glucose 131 H 134 H 113 H Lactic Acid Calcium Phosphorus Magnesium Direct Bilirubin AST ALT Alkaline Phosphatase Lactate Dehydrogenase Troponin T C-Reactive Protein Total Protein Albumin Prealbumin Triglycerides Cholesterol LDL Cholesterol Direct HDL Cholesterol Urine pH Urine WBC (Auto) Urine Creatinine Urine Total Protein Fluid Total Protein Vancomycin Trough Rheumatoid Factor Complement C4 Miscellaneous Test Crossmatch 11/04/16 11/04/16 11/04/16 05:41 06:00 12:10 WBC RBC Hgb Hct MCV MCH MCHC RDW Plt Count Lymph % (Auto) [place] % (Auto) Lymph # [place] # Baso # Seg Neutrophils % Seg Neuts % (Manual) Lymphocytes % (Manual) Monocytes % (Manual) Eosinophils % (Manual) Basophils % (Manual) Nucleated RBC % Seg Neutrophils # Seg Neutrophils # Man Lymphocytes # (Manual) Monocytes # (Manual) Eosinophils # (Manual) Basophils # (Manual) PT INR Fibrinogen dRVVT Confirm Interp Factor V Activity POC ABG pH POC ABG pCO2 POC ABG pO2 ABG pO2 ABG HCO3 ABG Base Excess ABG Hemoglobin Oxyhemoglobin Sodium Potassium Chloride 96.7 L Carbon Dioxide BUN 52 H Creatinine 1.9 H Glucose 126 H POC Glucose 137 H 191 H Lactic Acid Calcium Phosphorus Magnesium Direct Bilirubin AST ALT Alkaline Phosphatase Lactate Dehydrogenase Troponin T C-Reactive Protein Total Protein Albumin Prealbumin Triglycerides Cholesterol LDL Cholesterol Direct HDL Cholesterol Urine pH Urine WBC (Auto) Urine Creatinine Urine Total Protein Fluid Total Protein Vancomycin Trough Rheumatoid Factor Complement C4 Miscellaneous Test Crossmatch 11/04/16 11/05/16 11/05/16 22:57 03:10 05:10 WBC RBC Hgb Hct MCV MCH MCHC RDW Plt Count Lymph % (Auto) [place] % (Auto) Lymph # [place] # Baso # Seg Neutrophils % Seg Neuts % (Manual) Lymphocytes % (Manual) Monocytes % (Manual) Eosinophils % (Manual) Basophils % (Manual) Nucleated RBC % Seg Neutrophils # Seg Neutrophils # Man Lymphocytes # (Manual) Monocytes # (Manual) Eosinophils # (Manual) Basophils # (Manual) PT INR Fibrinogen dRVVT Confirm Interp Factor V Activity POC ABG pH POC ABG pCO2 POC ABG pO2 ABG pO2 ABG HCO3 ABG Base Excess ABG Hemoglobin Oxyhemoglobin Sodium 136 L Potassium Chloride 97.2 L Carbon Dioxide BUN 32 H Creatinine 1.3 H Glucose 123 H POC Glucose 125 H 108 H Lactic Acid Calcium 7.8 L Phosphorus Magnesium Direct Bilirubin AST ALT Alkaline Phosphatase Lactate Dehydrogenase Troponin T C-Reactive Protein Total Protein Albumin Prealbumin Triglycerides Cholesterol LDL Cholesterol Direct HDL Cholesterol Urine pH Urine WBC (Auto) Urine Creatinine Urine Total Protein Fluid Total Protein Vancomycin Trough Rheumatoid Factor Complement C4 Miscellaneous Test Crossmatch 11/05/16 11/05/16 11/05/16 12:23 13:09 13:25 WBC RBC Hgb Hct MCV MCH MCHC RDW Plt Count Lymph % (Auto) [place] % (Auto) Lymph # [place] # Baso # Seg Neutrophils % Seg Neuts % (Manual) Lymphocytes % (Manual) Monocytes % (Manual) Eosinophils % (Manual) Basophils % (Manual) Nucleated RBC % Seg Neutrophils # Seg Neutrophils # Man Lymphocytes # (Manual) Monocytes # (Manual) Eosinophils # (Manual) Basophils # (Manual) PT INR Fibrinogen dRVVT Confirm Interp Factor V Activity POC ABG pH POC ABG pCO2 POC ABG pO2 ABG pO2 ABG HCO3 ABG Base Excess ABG Hemoglobin Oxyhemoglobin Sodium Potassium Chloride Carbon Dioxide BUN Creatinine Glucose POC Glucose 124 H Lactic Acid Calcium Phosphorus Magnesium Direct Bilirubin AST ALT Alkaline Phosphatase Lactate Dehydrogenase Troponin T C-Reactive Protein 11.40 H Total Protein Albumin Prealbumin Triglycerides Cholesterol LDL Cholesterol Direct HDL Cholesterol Urine pH 9.0 H Urine WBC (Auto) Urine Creatinine Urine Total Protein Fluid Total Protein Vancomycin Trough Rheumatoid Factor Complement C4 Miscellaneous Test Crossmatch 11/05/16 11/05/16 11/05/16 13:25 17:54 23:42 WBC RBC Hgb Hct MCV MCH MCHC RDW Plt Count Lymph % (Auto) [place] % (Auto) Lymph # [place] # Baso # Seg Neutrophils % Seg Neuts % (Manual) Lymphocytes % (Manual) Monocytes % (Manual) Eosinophils % (Manual) Basophils % (Manual) Nucleated RBC % Seg Neutrophils # Seg Neutrophils # Man Lymphocytes # (Manual) Monocytes # (Manual) Eosinophils # (Manual) Basophils # (Manual) PT INR Fibrinogen dRVVT Confirm Interp Factor V Activity POC ABG pH POC ABG pCO2 POC ABG pO2 ABG pO2 ABG HCO3 ABG Base Excess ABG Hemoglobin Oxyhemoglobin Sodium Potassium Chloride Carbon Dioxide BUN Creatinine Glucose POC Glucose 114 H 134 H Lactic Acid Calcium Phosphorus Magnesium Direct Bilirubin AST ALT Alkaline Phosphatase Lactate Dehydrogenase Troponin T C-Reactive Protein Total Protein Albumin Prealbumin Triglycerides Cholesterol LDL Cholesterol Direct HDL Cholesterol Urine pH Urine WBC (Auto) Urine Creatinine Urine Total Protein Fluid Total Protein Vancomycin Trough Rheumatoid Factor Complement C4 Miscellaneous Test Flexitest 1 H Crossmatch 11/06/16 11/06/16 11/06/16 04:56 06:25 06:25 WBC RBC 2.50 L Hgb 7.3 L Hct 22.5 L MCV MCH MCHC RDW 16.9 H Plt Count Lymph % (Auto) [place] % (Auto) 10.5 H Lymph # [place] # 1.1 H Baso # Seg Neutrophils % Seg Neuts % (Manual) Lymphocytes % (Manual) Monocytes % (Manual) Eosinophils % (Manual) Basophils % (Manual) Nucleated RBC % Seg Neutrophils # Seg Neutrophils # Man Lymphocytes # (Manual) Monocytes # (Manual) Eosinophils # (Manual) Basophils # (Manual) PT INR Fibrinogen dRVVT Confirm Interp Factor V Activity POC ABG pH POC ABG pCO2 POC ABG pO2 ABG pO2 ABG HCO3 ABG Base Excess ABG Hemoglobin Oxyhemoglobin Sodium Potassium 5.1 H Chloride 95.9 L Carbon Dioxide BUN 52 H Creatinine 1.8 H Glucose 117 H POC Glucose 120 H Lactic Acid Calcium Phosphorus Magnesium Direct Bilirubin AST 103 H ALT 77 H Alkaline Phosphatase 285 H Lactate Dehydrogenase Troponin T C-Reactive Protein Total Protein 6.2 L Albumin 1.8 L Prealbumin 0.180 L Triglycerides Cholesterol LDL Cholesterol Direct HDL Cholesterol Urine pH Urine WBC (Auto) Urine Creatinine Urine Total Protein Fluid Total Protein Vancomycin Trough Rheumatoid Factor Complement C4 Miscellaneous Test Crossmatch 11/06/16 11/06/16 11/06/16 11:56 17:14 23:52 WBC RBC Hgb Hct MCV MCH MCHC RDW Plt Count Lymph % (Auto) [place] % (Auto) Lymph # [place] # Baso # Seg Neutrophils % Seg Neuts % (Manual) Lymphocytes % (Manual) Monocytes % (Manual) Eosinophils % (Manual) Basophils % (Manual) Nucleated RBC % Seg Neutrophils # Seg Neutrophils # Man Lymphocytes # (Manual) Monocytes # (Manual) Eosinophils # (Manual) Basophils # (Manual) PT INR Fibrinogen dRVVT Confirm Interp Factor V Activity POC ABG pH POC ABG pCO2 POC ABG pO2 ABG pO2 ABG HCO3 ABG Base Excess ABG Hemoglobin Oxyhemoglobin Sodium Potassium Chloride Carbon Dioxide BUN Creatinine Glucose POC Glucose 141 H 125 H 130 H Lactic Acid Calcium Phosphorus Magnesium Direct Bilirubin AST ALT Alkaline Phosphatase Lactate Dehydrogenase Troponin T C-Reactive Protein Total Protein Albumin Prealbumin Triglycerides Cholesterol LDL Cholesterol Direct HDL Cholesterol Urine pH Urine WBC (Auto) Urine Creatinine Urine Total Protein Fluid Total Protein Vancomycin Trough Rheumatoid Factor Complement C4 Miscellaneous Test Crossmatch 11/07/16 11/07/16 11/07/16 06:30 06:30 09:37 WBC RBC 2.18 L Hgb 6.3 L Hct 19.7 L* MCV MCH MCHC RDW 16.8 H Plt Count Lymph % (Auto) [place] % (Auto) 10.0 H Lymph # [place] # 1.0 H Baso # Seg Neutrophils % Seg Neuts % (Manual) Lymphocytes % (Manual) Monocytes % (Manual) Eosinophils % (Manual) Basophils % (Manual) Nucleated RBC % Seg Neutrophils # Seg Neutrophils # Man Lymphocytes # (Manual) Monocytes # (Manual) Eosinophils # (Manual) Basophils # (Manual) PT INR Fibrinogen dRVVT Confirm Interp Factor V Activity POC ABG pH POC ABG pCO2 POC ABG pO2 ABG pO2 ABG HCO3 ABG Base Excess ABG Hemoglobin Oxyhemoglobin Sodium 135 L Potassium Chloride 95.6 L Carbon Dioxide BUN 70 H Creatinine 2.0 H Glucose 126 H POC Glucose Lactic Acid Calcium Phosphorus Magnesium Direct Bilirubin AST ALT Alkaline Phosphatase Lactate Dehydrogenase Troponin T C-Reactive Protein Total Protein Albumin Prealbumin Triglycerides Cholesterol LDL Cholesterol Direct HDL Cholesterol Urine pH Urine WBC (Auto) Urine Creatinine Urine Total Protein Fluid Total Protein Vancomycin Trough Rheumatoid Factor Complement C4 Miscellaneous Test Crossmatch See Detail 11/07/16 11/07/16 11/07/16 12:52 18:51 21:26 WBC RBC Hgb Hct MCV MCH MCHC RDW Plt Count Lymph % (Auto) [place] % (Auto) Lymph # [place] # Baso # Seg Neutrophils % Seg Neuts % (Manual) Lymphocytes % (Manual) Monocytes % (Manual) Eosinophils % (Manual) Basophils % (Manual) Nucleated RBC % Seg Neutrophils # Seg Neutrophils # Man Lymphocytes # (Manual) Monocytes # (Manual) Eosinophils # (Manual) Basophils # (Manual) PT INR Fibrinogen dRVVT Confirm Interp Factor V Activity POC ABG pH 7.523 H POC ABG pCO2 34.6 L POC ABG pO2 53 L ABG pO2 ABG HCO3 ABG Base Excess ABG Hemoglobin Oxyhemoglobin Sodium Potassium Chloride Carbon Dioxide BUN Creatinine Glucose POC Glucose 142 H 155 H Lactic Acid Calcium Phosphorus Magnesium Direct Bilirubin AST ALT Alkaline Phosphatase Lactate Dehydrogenase Troponin T C-Reactive Protein Total Protein Albumin Prealbumin Triglycerides Cholesterol LDL Cholesterol Direct HDL Cholesterol Urine pH Urine WBC (Auto) Urine Creatinine Urine Total Protein Fluid Total Protein Vancomycin Trough Rheumatoid Factor Complement C4 Miscellaneous Test Crossmatch 11/07/16 11/08/16 11/08/16 21:34 13:03 23:37 WBC RBC 2.63 L Hgb 7.7 L Hct 22.7 L MCV MCH MCHC RDW 17.0 H Plt Count Lymph % (Auto) [place] % (Auto) Lymph # [place] # Baso # Seg Neutrophils % Seg Neuts % (Manual) Lymphocytes % (Manual) Monocytes % (Manual) Eosinophils % (Manual) Basophils % (Manual) Nucleated RBC % Seg Neutrophils # Seg Neutrophils # Man Lymphocytes # (Manual) Monocytes # (Manual) Eosinophils # (Manual) Basophils # (Manual) PT INR Fibrinogen dRVVT Confirm Interp Factor V Activity POC ABG pH 7.478 H POC ABG pCO2 34.0 L POC ABG pO2 50 L ABG pO2 ABG HCO3 ABG Base Excess ABG Hemoglobin Oxyhemoglobin Sodium Potassium Chloride Carbon Dioxide BUN Creatinine Glucose POC Glucose 113 H Lactic Acid Calcium Phosphorus Magnesium Direct Bilirubin AST ALT Alkaline Phosphatase Lactate Dehydrogenase Troponin T C-Reactive Protein Total Protein Albumin Prealbumin Triglycerides Cholesterol LDL Cholesterol Direct HDL Cholesterol Urine pH Urine WBC (Auto) Urine Creatinine Urine Total Protein Fluid Total Protein Vancomycin Trough Rheumatoid Factor Complement C4 Miscellaneous Test Crossmatch 11/09/16 11/09/16 11/09/16 04:35 10:15 18:21 WBC RBC 2.68 L Hgb 7.8 L Hct 23.3 L MCV MCH MCHC RDW 17.0 H Plt Count Lymph % (Auto) [place] % (Auto) 12.1 H Lymph # [place] # 1.1 H Baso # Seg Neutrophils % Seg Neuts % (Manual) Lymphocytes % (Manual) Monocytes % (Manual) Eosinophils % (Manual) Basophils % (Manual) Nucleated RBC % Seg Neutrophils # Seg Neutrophils # Man Lymphocytes # (Manual) Monocytes # (Manual) Eosinophils # (Manual) Basophils # (Manual) PT INR Fibrinogen dRVVT Confirm Interp Factor V Activity POC ABG pH POC ABG pCO2 POC ABG pO2 ABG pO2 ABG HCO3 ABG Base Excess ABG Hemoglobin Oxyhemoglobin Sodium Potassium Chloride Carbon Dioxide BUN 51 H Creatinine 1.8 H Glucose POC Glucose 60 L Lactic Acid Calcium 8.3 L Phosphorus Magnesium Direct Bilirubin AST ALT Alkaline Phosphatase Lactate Dehydrogenase Troponin T C-Reactive Protein Total Protein Albumin Prealbumin Triglycerides Cholesterol LDL Cholesterol Direct HDL Cholesterol Urine pH Urine WBC (Auto) Urine Creatinine Urine Total Protein Fluid Total Protein Vancomycin Trough Rheumatoid Factor Complement C4 Miscellaneous Test Crossmatch 11/09/16 11/10/16 11/10/16 18:55 07:00 11:51 WBC RBC Hgb Hct MCV MCH MCHC RDW Plt Count Lymph % (Auto) [place] % (Auto) Lymph # [place] # Baso # Seg Neutrophils % Seg Neuts % (Manual) Lymphocytes % (Manual) Monocytes % (Manual) Eosinophils % (Manual) Basophils % (Manual) Nucleated RBC % Seg Neutrophils # Seg Neutrophils # Man Lymphocytes # (Manual) Monocytes # (Manual) Eosinophils # (Manual) Basophils # (Manual) PT INR Fibrinogen dRVVT Confirm Interp Factor V Activity POC ABG pH POC ABG pCO2 POC ABG pO2 ABG pO2 ABG HCO3 ABG Base Excess ABG Hemoglobin Oxyhemoglobin Sodium Potassium 3.0 L D Chloride 97.4 L Carbon Dioxide BUN 28 H Creatinine 1.3 H Glucose POC Glucose 68 L 120 H Lactic Acid Calcium 7.8 L Phosphorus Magnesium Direct Bilirubin AST ALT Alkaline Phosphatase Lactate Dehydrogenase Troponin T C-Reactive Protein Total Protein Albumin Prealbumin Triglycerides Cholesterol LDL Cholesterol Direct HDL Cholesterol Urine pH Urine WBC (Auto) Urine Creatinine Urine Total Protein Fluid Total Protein Vancomycin Trough Rheumatoid Factor Complement C4 Miscellaneous Test Crossmatch 11/10/16 11/11/16 11/11/16 14:20 06:59 06:59 WBC RBC 2.81 L Hgb 8.1 L Hct 24.4 L MCV MCH MCHC RDW 16.4 H Plt Count Lymph % (Auto) [place] % (Auto) 10.8 H Lymph # [place] # 1.0 H Baso # Seg Neutrophils % Seg Neuts % (Manual) Lymphocytes % (Manual) Monocytes % (Manual) Eosinophils % (Manual) Basophils % (Manual) Nucleated RBC % Seg Neutrophils # Seg Neutrophils # Man Lymphocytes # (Manual) Monocytes # (Manual) Eosinophils # (Manual) Basophils # (Manual) PT INR Fibrinogen dRVVT Confirm Interp Factor V Activity POC ABG pH POC ABG pCO2 POC ABG pO2 ABG pO2 ABG HCO3 ABG Base Excess ABG Hemoglobin Oxyhemoglobin Sodium Potassium Chloride Carbon Dioxide BUN Creatinine Glucose POC Glucose Lactic Acid Calcium Phosphorus Magnesium Direct Bilirubin AST ALT Alkaline Phosphatase Lactate Dehydrogenase 196 H Troponin T C-Reactive Protein Total Protein 6.1 L Albumin Prealbumin Triglycerides Cholesterol LDL Cholesterol Direct HDL Cholesterol Urine pH Urine WBC (Auto) Urine Creatinine Urine Total Protein Fluid Total Protein < 3.0 L Vancomycin Trough Rheumatoid Factor Complement C4 Miscellaneous Test Crossmatch 11/11/16 11/11/16 11/12/16 06:59 09:50 04:00 WBC RBC Hgb Hct MCV MCH MCHC RDW Plt Count Lymph % (Auto) [place] % (Auto) Lymph # [place] # Baso # Seg Neutrophils % Seg Neuts % (Manual) Lymphocytes % (Manual) Monocytes % (Manual) Eosinophils % (Manual) Basophils % (Manual) Nucleated RBC % Seg Neutrophils # Seg Neutrophils # Man Lymphocytes # (Manual) Monocytes # (Manual) Eosinophils # (Manual) Basophils # (Manual) PT INR 1.18 H Fibrinogen dRVVT Confirm Interp Factor V Activity POC ABG pH POC ABG pCO2 POC ABG pO2 ABG pO2 ABG HCO3 ABG Base Excess ABG Hemoglobin Oxyhemoglobin Sodium 136 L 133 L Potassium Chloride 96.1 L 94.8 L Carbon Dioxide 21 L BUN 37 H 42 H Creatinine 1.8 H 2.0 H Glucose POC Glucose Lactic Acid Calcium Phosphorus Magnesium Direct Bilirubin AST ALT Alkaline Phosphatase Lactate Dehydrogenase Troponin T C-Reactive Protein Total Protein Albumin Prealbumin Triglycerides Cholesterol LDL Cholesterol Direct HDL Cholesterol Urine pH Urine WBC (Auto) Urine Creatinine Urine Total Protein Fluid Total Protein Vancomycin Trough Rheumatoid Factor Complement C4 Miscellaneous Test Crossmatch 11/12/16 11/12/16 11/13/16 04:00 23:55 05:53 WBC RBC Hgb 8.9 L Hct 27.2 L MCV MCH MCHC RDW Plt Count Lymph % (Auto) [place] % (Auto) Lymph # [place] # Baso # Seg Neutrophils % Seg Neuts % (Manual) Lymphocytes % (Manual) Monocytes % (Manual) Eosinophils % (Manual) Basophils % (Manual) Nucleated RBC % Seg Neutrophils # Seg Neutrophils # Man Lymphocytes # (Manual) Monocytes # (Manual) Eosinophils # (Manual) Basophils # (Manual) PT INR Fibrinogen dRVVT Confirm Interp Factor V Activity POC ABG pH POC ABG pCO2 POC ABG pO2 ABG pO2 ABG HCO3 ABG Base Excess ABG Hemoglobin Oxyhemoglobin Sodium Potassium Chloride Carbon Dioxide BUN Creatinine Glucose POC Glucose 132 H 120 H Lactic Acid Calcium Phosphorus Magnesium Direct Bilirubin AST ALT Alkaline Phosphatase Lactate Dehydrogenase Troponin T C-Reactive Protein Total Protein Albumin Prealbumin Triglycerides Cholesterol LDL Cholesterol Direct HDL Cholesterol Urine pH Urine WBC (Auto) Urine Creatinine Urine Total Protein Fluid Total Protein Vancomycin Trough Rheumatoid Factor Complement C4 Miscellaneous Test Crossmatch 11/13/16 11/13/16 11/13/16 11:43 17:09 23:41 WBC RBC Hgb Hct MCV MCH MCHC RDW Plt Count Lymph % (Auto) [place] % (Auto) Lymph # [place] # Baso # Seg Neutrophils % Seg Neuts % (Manual) Lymphocytes % (Manual) Monocytes % (Manual) Eosinophils % (Manual) Basophils % (Manual) Nucleated RBC % Seg Neutrophils # Seg Neutrophils # Man Lymphocytes # (Manual) Monocytes # (Manual) Eosinophils # (Manual) Basophils # (Manual) PT INR Fibrinogen dRVVT Confirm Interp Factor V Activity POC ABG pH POC ABG pCO2 POC ABG pO2 ABG pO2 ABG HCO3 ABG Base Excess ABG Hemoglobin Oxyhemoglobin Sodium Potassium Chloride Carbon Dioxide BUN Creatinine Glucose POC Glucose 114 H 113 H 108 H Lactic Acid Calcium Phosphorus Magnesium Direct Bilirubin AST ALT Alkaline Phosphatase Lactate Dehydrogenase Troponin T C-Reactive Protein Total Protein Albumin Prealbumin Triglycerides Cholesterol LDL Cholesterol Direct HDL Cholesterol Urine pH Urine WBC (Auto) Urine Creatinine Urine Total Protein Fluid Total Protein Vancomycin Trough Rheumatoid Factor Complement C4 Miscellaneous Test Crossmatch 11/13/16 11/15/16 11/15/16 Unknown 00:37 03:30 WBC 11.2 H RBC 2.72 L Hgb 7.6 L Hct 23.4 L MCV MCH MCHC RDW 16.5 H Plt Count Lymph % (Auto) [place] % (Auto) Lymph # [place] # Baso # Seg Neutrophils % Seg Neuts % (Manual) Lymphocytes % (Manual) Monocytes % (Manual) Eosinophils % (Manual) Basophils % (Manual) Nucleated RBC % Seg Neutrophils # Seg Neutrophils # Man Lymphocytes # (Manual) Monocytes # (Manual) Eosinophils # (Manual) Basophils # (Manual) PT INR Fibrinogen dRVVT Confirm Interp Factor V Activity POC ABG pH POC ABG pCO2 POC ABG pO2 ABG pO2 ABG HCO3 ABG Base Excess ABG Hemoglobin Oxyhemoglobin Sodium 135 L Potassium Chloride 95.2 L Carbon Dioxide BUN 52 H Creatinine 2.2 H Glucose POC Glucose 108 H Lactic Acid Calcium Phosphorus Magnesium Direct Bilirubin AST ALT Alkaline Phosphatase Lactate Dehydrogenase Troponin T C-Reactive Protein Total Protein Albumin Prealbumin Triglycerides Cholesterol LDL Cholesterol Direct HDL Cholesterol Urine pH Urine WBC (Auto) Urine Creatinine Urine Total Protein Fluid Total Protein Vancomycin Trough Rheumatoid Factor Complement C4 Miscellaneous Test Crossmatch 11/15/16 11/15/16 11/15/16 03:30 05:04 11:50 WBC RBC Hgb Hct MCV MCH MCHC RDW Plt Count Lymph % (Auto) [place] % (Auto) Lymph # [place] # Baso # Seg Neutrophils % Seg Neuts % (Manual) Lymphocytes % (Manual) Monocytes % (Manual) Eosinophils % (Manual) Basophils % (Manual) Nucleated RBC % Seg Neutrophils # Seg Neutrophils # Man Lymphocytes # (Manual) Monocytes # (Manual) Eosinophils # (Manual) Basophils # (Manual) PT INR Fibrinogen dRVVT Confirm Interp Factor V Activity POC ABG pH POC ABG pCO2 POC ABG pO2 ABG pO2 ABG HCO3 ABG Base Excess ABG Hemoglobin Oxyhemoglobin Sodium Potassium 3.4 L Chloride Carbon Dioxide BUN 25 H Creatinine 1.5 H Glucose 103 H POC Glucose 121 H 144 H Lactic Acid Calcium Phosphorus Magnesium Direct Bilirubin AST ALT Alkaline Phosphatase Lactate Dehydrogenase Troponin T C-Reactive Protein Total Protein Albumin Prealbumin Triglycerides Cholesterol LDL Cholesterol Direct HDL Cholesterol Urine pH Urine WBC (Auto) Urine Creatinine Urine Total Protein Fluid Total Protein Vancomycin Trough Rheumatoid Factor Complement C4 Miscellaneous Test Crossmatch 11/15/16 11/15/16 11/16/16 21:28 23:20 11:44 WBC RBC Hgb Hct MCV MCH MCHC RDW Plt Count Lymph % (Auto) [place] % (Auto) Lymph # [place] # Baso # Seg Neutrophils % Seg Neuts % (Manual) Lymphocytes % (Manual) Monocytes % (Manual) Eosinophils % (Manual) Basophils % (Manual) Nucleated RBC % Seg Neutrophils # Seg Neutrophils # Man Lymphocytes # (Manual) Monocytes # (Manual) Eosinophils # (Manual) Basophils # (Manual) PT INR Fibrinogen dRVVT Confirm Interp Factor V Activity POC ABG pH 7.462 H POC ABG pCO2 POC ABG pO2 71 L ABG pO2 ABG HCO3 ABG Base Excess ABG Hemoglobin Oxyhemoglobin Sodium Potassium Chloride Carbon Dioxide BUN Creatinine Glucose POC Glucose 116 H 133 H Lactic Acid Calcium Phosphorus Magnesium Direct Bilirubin AST ALT Alkaline Phosphatase Lactate Dehydrogenase Troponin T C-Reactive Protein Total Protein Albumin Prealbumin Triglycerides Cholesterol LDL Cholesterol Direct HDL Cholesterol Urine pH Urine WBC (Auto) Urine Creatinine Urine Total Protein Fluid Total Protein Vancomycin Trough Rheumatoid Factor Complement C4 Miscellaneous Test Crossmatch 11/16/16 11/16/16 11/16/16 12:20 17:05 23:35 WBC 11.7 H RBC 2.73 L Hgb 7.6 L Hct 23.7 L MCV MCH MCHC RDW 16.6 H Plt Count Lymph % (Auto) [place] % (Auto) Lymph # [place] # Baso # Seg Neutrophils % Seg Neuts % (Manual) Lymphocytes % (Manual) Monocytes % (Manual) Eosinophils % (Manual) Basophils % (Manual) Nucleated RBC % Seg Neutrophils # Seg Neutrophils # Man Lymphocytes # (Manual) Monocytes # (Manual) Eosinophils # (Manual) Basophils # (Manual) PT INR Fibrinogen dRVVT Confirm Interp Factor V Activity POC ABG pH POC ABG pCO2 POC ABG pO2 ABG pO2 ABG HCO3 ABG Base Excess ABG Hemoglobin Oxyhemoglobin Sodium Potassium Chloride Carbon Dioxide BUN Creatinine Glucose POC Glucose 154 H 125 H Lactic Acid Calcium Phosphorus Magnesium Direct Bilirubin AST ALT Alkaline Phosphatase Lactate Dehydrogenase Troponin T C-Reactive Protein Total Protein Albumin Prealbumin Triglycerides Cholesterol LDL Cholesterol Direct HDL Cholesterol Urine pH Urine WBC (Auto) Urine Creatinine Urine Total Protein Fluid Total Protein Vancomycin Trough Rheumatoid Factor Complement C4 Miscellaneous Test Crossmatch 11/17/16 11/17/16 11/17/16 03:20 03:20 03:20 WBC RBC 2.55 L Hgb 7.3 L Hct 21.9 L MCV MCH MCHC RDW 16.6 H Plt Count Lymph % (Auto) [place] % (Auto) 11.5 H Lymph # [place] # 1.1 H Baso # Seg Neutrophils % Seg Neuts % (Manual) Lymphocytes % (Manual) Monocytes % (Manual) Eosinophils % (Manual) Basophils % (Manual) Nucleated RBC % Seg Neutrophils # Seg Neutrophils # Man Lymphocytes # (Manual) Monocytes # (Manual) Eosinophils # (Manual) Basophils # (Manual) PT 16.8 H INR 1.37 H Fibrinogen dRVVT Confirm Interp Factor V Activity POC ABG pH POC ABG pCO2 POC ABG pO2 ABG pO2 ABG HCO3 ABG Base Excess ABG Hemoglobin Oxyhemoglobin Sodium Potassium 3.5 L Chloride Carbon Dioxide BUN 21 H Creatinine Glucose POC Glucose Lactic Acid Calcium 7.9 L Phosphorus Magnesium Direct Bilirubin AST ALT Alkaline Phosphatase Lactate Dehydrogenase Troponin T C-Reactive Protein Total Protein Albumin Prealbumin Triglycerides Cholesterol LDL Cholesterol Direct HDL Cholesterol Urine pH Urine WBC (Auto) Urine Creatinine Urine Total Protein Fluid Total Protein Vancomycin Trough Rheumatoid Factor Complement C4 Miscellaneous Test Crossmatch 11/17/16 11/17/16 11/17/16 06:34 11:21 21:22 WBC RBC Hgb Hct MCV MCH MCHC RDW Plt Count Lymph % (Auto) [place] % (Auto) Lymph # [place] # Baso # Seg Neutrophils % Seg Neuts % (Manual) Lymphocytes % (Manual) Monocytes % (Manual) Eosinophils % (Manual) Basophils % (Manual) Nucleated RBC % Seg Neutrophils # Seg Neutrophils # Man Lymphocytes # (Manual) Monocytes # (Manual) Eosinophils # (Manual) Basophils # (Manual) PT INR Fibrinogen dRVVT Confirm Interp Factor V Activity POC ABG pH 7.467 H POC ABG pCO2 POC ABG pO2 73 L ABG pO2 ABG HCO3 ABG Base Excess ABG Hemoglobin Oxyhemoglobin Sodium Potassium Chloride Carbon Dioxide BUN Creatinine Glucose POC Glucose 121 H 119 H Lactic Acid Calcium Phosphorus Magnesium Direct Bilirubin AST ALT Alkaline Phosphatase Lactate Dehydrogenase Troponin T C-Reactive Protein Total Protein Albumin Prealbumin Triglycerides Cholesterol LDL Cholesterol Direct HDL Cholesterol Urine pH Urine WBC (Auto) Urine Creatinine Urine Total Protein Fluid Total Protein Vancomycin Trough Rheumatoid Factor Complement C4 Miscellaneous Test Crossmatch 11/18/16 11/18/16 11/19/16 12:16 17:19 00:00 WBC RBC Hgb Hct MCV MCH MCHC RDW Plt Count Lymph % (Auto) [place] % (Auto) Lymph # [place] # Baso # Seg Neutrophils % Seg Neuts % (Manual) Lymphocytes % (Manual) Monocytes % (Manual) Eosinophils % (Manual) Basophils % (Manual) Nucleated RBC % Seg Neutrophils # Seg Neutrophils # Man Lymphocytes # (Manual) Monocytes # (Manual) Eosinophils # (Manual) Basophils # (Manual) PT INR Fibrinogen dRVVT Confirm Interp Factor V Activity POC ABG pH POC ABG pCO2 POC ABG pO2 ABG pO2 ABG HCO3 ABG Base Excess ABG Hemoglobin Oxyhemoglobin Sodium Potassium Chloride Carbon Dioxide BUN Creatinine Glucose POC Glucose 124 H 162 H 139 H Lactic Acid Calcium Phosphorus Magnesium Direct Bilirubin AST ALT Alkaline Phosphatase Lactate Dehydrogenase Troponin T C-Reactive Protein Total Protein Albumin Prealbumin Triglycerides Cholesterol LDL Cholesterol Direct HDL Cholesterol Urine pH Urine WBC (Auto) Urine Creatinine Urine Total Protein Fluid Total Protein Vancomycin Trough Rheumatoid Factor Complement C4 Miscellaneous Test Crossmatch 11/19/16 11/19/16 11/20/16 05:00 12:43 00:40 WBC RBC Hgb Hct MCV MCH MCHC RDW Plt Count Lymph % (Auto) [place] % (Auto) Lymph # [place] # Baso # Seg Neutrophils % Seg Neuts % (Manual) Lymphocytes % (Manual) Monocytes % (Manual) Eosinophils % (Manual) Basophils % (Manual) Nucleated RBC % Seg Neutrophils # Seg Neutrophils # Man Lymphocytes # (Manual) Monocytes # (Manual) Eosinophils # (Manual) Basophils # (Manual) PT INR Fibrinogen dRVVT Confirm Interp Factor V Activity POC ABG pH POC ABG pCO2 POC ABG pO2 ABG pO2 ABG HCO3 ABG Base Excess ABG Hemoglobin Oxyhemoglobin Sodium Potassium Chloride Carbon Dioxide BUN Creatinine Glucose POC Glucose 110 H 125 H 136 H Lactic Acid Calcium Phosphorus Magnesium Direct Bilirubin AST ALT Alkaline Phosphatase Lactate Dehydrogenase Troponin T C-Reactive Protein Total Protein Albumin Prealbumin Triglycerides Cholesterol LDL Cholesterol Direct HDL Cholesterol Urine pH Urine WBC (Auto) Urine Creatinine Urine Total Protein Fluid Total Protein Vancomycin Trough Rheumatoid Factor Complement C4 Miscellaneous Test Crossmatch 11/20/16 11/20/16 11/20/16 05:00 05:00 05:51 WBC 13.1 H RBC 2.74 L Hgb 7.7 L Hct 23.6 L MCV MCH MCHC RDW 16.9 H Plt Count Lymph % (Auto) [place] % (Auto) 10.8 H Lymph # [place] # 1.4 H Baso # Seg Neutrophils % Seg Neuts % (Manual) Lymphocytes % (Manual) Monocytes % (Manual) Eosinophils % (Manual) Basophils % (Manual) Nucleated RBC % Seg Neutrophils # 7.9 H Seg Neutrophils # Man Lymphocytes # (Manual) Monocytes # (Manual) Eosinophils # (Manual) Basophils # (Manual) PT INR Fibrinogen dRVVT Confirm Interp Factor V Activity POC ABG pH POC ABG pCO2 POC ABG pO2 ABG pO2 ABG HCO3 ABG Base Excess ABG Hemoglobin Oxyhemoglobin Sodium Potassium Chloride Carbon Dioxide BUN 31 H Creatinine 1.8 H Glucose 129 H POC Glucose 133 H Lactic Acid Calcium Phosphorus Magnesium Direct Bilirubin AST ALT Alkaline Phosphatase Lactate Dehydrogenase Troponin T C-Reactive Protein Total Protein Albumin Prealbumin Triglycerides Cholesterol LDL Cholesterol Direct HDL Cholesterol Urine pH Urine WBC (Auto) Urine Creatinine Urine Total Protein Fluid Total Protein Vancomycin Trough Rheumatoid Factor Complement C4 Miscellaneous Test Crossmatch 11/20/16 11/20/16 11/21/16 12:40 18:10 01:20 WBC RBC Hgb Hct MCV MCH MCHC RDW Plt Count Lymph % (Auto) [place] % (Auto) Lymph # [place] # Baso # Seg Neutrophils % Seg Neuts % (Manual) Lymphocytes % (Manual) Monocytes % (Manual) Eosinophils % (Manual) Basophils % (Manual) Nucleated RBC % Seg Neutrophils # Seg Neutrophils # Man Lymphocytes # (Manual) Monocytes # (Manual) Eosinophils # (Manual) Basophils # (Manual) PT INR Fibrinogen dRVVT Confirm Interp Factor V Activity POC ABG pH POC ABG pCO2 POC ABG pO2 ABG pO2 ABG HCO3 ABG Base Excess ABG Hemoglobin Oxyhemoglobin Sodium Potassium Chloride Carbon Dioxide BUN Creatinine Glucose POC Glucose 134 H 138 H 136 H Lactic Acid Calcium Phosphorus Magnesium Direct Bilirubin AST ALT Alkaline Phosphatase Lactate Dehydrogenase Troponin T C-Reactive Protein Total Protein Albumin Prealbumin Triglycerides Cholesterol LDL Cholesterol Direct HDL Cholesterol Urine pH Urine WBC (Auto) Urine Creatinine Urine Total Protein Fluid Total Protein Vancomycin Trough Rheumatoid Factor Complement C4 Miscellaneous Test Crossmatch 11/21/16 11/21/16 11/21/16 07:04 07:45 07:45 WBC 22.0 H RBC 2.91 L Hgb 8.2 L Hct 25.4 L MCV MCH MCHC RDW 17.1 H Plt Count Lymph % (Auto) [place] % (Auto) Lymph # [place] # Baso # Seg Neutrophils % Seg Neuts % (Manual) Lymphocytes % (Manual) 8.0 L Monocytes % (Manual) Eosinophils % (Manual) Basophils % (Manual) Nucleated RBC % Seg Neutrophils # Seg Neutrophils # Man 14.7 H Lymphocytes # (Manual) Monocytes # (Manual) 1.1 H Eosinophils # (Manual) Basophils # (Manual) PT INR Fibrinogen dRVVT Confirm Interp Factor V Activity POC ABG pH POC ABG pCO2 POC ABG pO2 ABG pO2 ABG HCO3 ABG Base Excess ABG Hemoglobin Oxyhemoglobin Sodium Potassium Chloride Carbon Dioxide BUN 42 H Creatinine 2.0 H Glucose POC Glucose 108 H Lactic Acid Calcium Phosphorus Magnesium Direct Bilirubin AST ALT Alkaline Phosphatase Lactate Dehydrogenase Troponin T C-Reactive Protein Total Protein Albumin Prealbumin Triglycerides Cholesterol LDL Cholesterol Direct HDL Cholesterol Urine pH Urine WBC (Auto) Urine Creatinine Urine Total Protein Fluid Total Protein Vancomycin Trough Rheumatoid Factor Complement C4 Miscellaneous Test Crossmatch 11/21/16 11/21/16 11/21/16 08:38 10:09 11:20 WBC RBC Hgb Hct MCV MCH MCHC RDW Plt Count Lymph % (Auto) [place] % (Auto) Lymph # [place] # Baso # Seg Neutrophils % Seg Neuts % (Manual) Lymphocytes % (Manual) Monocytes % (Manual) Eosinophils % (Manual) Basophils % (Manual) Nucleated RBC % Seg Neutrophils # Seg Neutrophils # Man Lymphocytes # (Manual) Monocytes # (Manual) Eosinophils # (Manual) Basophils # (Manual) PT INR Fibrinogen dRVVT Confirm Interp Factor V Activity POC ABG pH 7.346 L POC ABG pCO2 34.4 L POC ABG pO2 314 H ABG pO2 ABG HCO3 ABG Base Excess ABG Hemoglobin Oxyhemoglobin Sodium Potassium Chloride Carbon Dioxide BUN Creatinine Glucose POC Glucose 195 H 153 H Lactic Acid Calcium Phosphorus Magnesium Direct Bilirubin AST ALT Alkaline Phosphatase Lactate Dehydrogenase Troponin T C-Reactive Protein Total Protein Albumin Prealbumin Triglycerides Cholesterol LDL Cholesterol Direct HDL Cholesterol Urine pH Urine WBC (Auto) Urine Creatinine Urine Total Protein Fluid Total Protein Vancomycin Trough Rheumatoid Factor Complement C4 Miscellaneous Test Crossmatch 11/21/16 11/22/16 11/22/16 23:37 04:48 05:00 WBC 29.7 H RBC 2.73 L Hgb 7.5 L Hct 24.2 L MCV MCH 27 L MCHC RDW 17.4 H Plt Count Lymph % (Auto) [place] % (Auto) Lymph # [place] # Baso # Seg Neutrophils % Seg Neuts % (Manual) Lymphocytes % (Manual) 7.0 L Monocytes % (Manual) Eosinophils % (Manual) Basophils % (Manual) Nucleated RBC % Seg Neutrophils # Seg Neutrophils # Man 15.4 H Lymphocytes # (Manual) Monocytes # (Manual) Eosinophils # (Manual) Basophils # (Manual) PT INR Fibrinogen dRVVT Confirm Interp Factor V Activity POC ABG pH POC ABG pCO2 24.6 L POC ABG pO2 189 H ABG pO2 ABG HCO3 ABG Base Excess ABG Hemoglobin Oxyhemoglobin Sodium Potassium Chloride Carbon Dioxide BUN Creatinine Glucose POC Glucose 65 L Lactic Acid Calcium Phosphorus Magnesium Direct Bilirubin AST ALT Alkaline Phosphatase Lactate Dehydrogenase Troponin T C-Reactive Protein Total Protein Albumin Prealbumin Triglycerides Cholesterol LDL Cholesterol Direct HDL Cholesterol Urine pH Urine WBC (Auto) Urine Creatinine Urine Total Protein Fluid Total Protein Vancomycin Trough Rheumatoid Factor Complement C4 Miscellaneous Test Crossmatch 11/22/16 11/23/16 11/23/16 05:00 03:44 04:06 WBC RBC 2.52 L Hgb 7.2 L Hct 21.5 L MCV MCH MCHC RDW 17.1 H Plt Count Lymph % (Auto) [place] % (Auto) 12.4 H Lymph # [place] # 1.4 H Baso # Seg Neutrophils % Seg Neuts % (Manual) Lymphocytes % (Manual) Monocytes % (Manual) Eosinophils % (Manual) Basophils % (Manual) Nucleated RBC % Seg Neutrophils # Seg Neutrophils # Man Lymphocytes # (Manual) Monocytes # (Manual) Eosinophils # (Manual) Basophils # (Manual) PT INR Fibrinogen dRVVT Confirm Interp Factor V Activity POC ABG pH 7.493 H POC ABG pCO2 29.5 L POC ABG pO2 49 L ABG pO2 ABG HCO3 ABG Base Excess ABG Hemoglobin Oxyhemoglobin Sodium 134 L Potassium Chloride 95.9 L Carbon Dioxide 14 L D BUN 51 H Creatinine 2.6 H Glucose POC Glucose Lactic Acid Calcium Phosphorus Magnesium Direct Bilirubin AST ALT Alkaline Phosphatase Lactate Dehydrogenase Troponin T C-Reactive Protein Total Protein Albumin Prealbumin Triglycerides Cholesterol LDL Cholesterol Direct HDL Cholesterol Urine pH Urine WBC (Auto) Urine Creatinine Urine Total Protein Fluid Total Protein Vancomycin Trough Rheumatoid Factor Complement C4 Miscellaneous Test Crossmatch 11/23/16 11/23/16 11/24/16 04:06 11:29 06:39 WBC RBC Hgb Hct MCV MCH MCHC RDW Plt Count Lymph % (Auto) [place] % (Auto) Lymph # [place] # Baso # Seg Neutrophils % Seg Neuts % (Manual) Lymphocytes % (Manual) Monocytes % (Manual) Eosinophils % (Manual) Basophils % (Manual) Nucleated RBC % Seg Neutrophils # Seg Neutrophils # Man Lymphocytes # (Manual) Monocytes # (Manual) Eosinophils # (Manual) Basophils # (Manual) PT INR Fibrinogen dRVVT Confirm Interp Factor V Activity POC ABG pH POC ABG pCO2 POC ABG pO2 ABG pO2 ABG HCO3 ABG Base Excess ABG Hemoglobin Oxyhemoglobin Sodium 136 L Potassium Chloride 95.2 L Carbon Dioxide BUN 60 H Creatinine 2.9 H Glucose POC Glucose 69 L 305 H Lactic Acid Calcium Phosphorus Magnesium 1.60 L Direct Bilirubin AST ALT Alkaline Phosphatase Lactate Dehydrogenase Troponin T C-Reactive Protein Total Protein Albumin Prealbumin Triglycerides Cholesterol LDL Cholesterol Direct HDL Cholesterol Urine pH Urine WBC (Auto) Urine Creatinine Urine Total Protein Fluid Total Protein Vancomycin Trough Rheumatoid Factor Complement C4 Miscellaneous Test Crossmatch 10/05/17 10/05/17 10/05/17 06:43 08:08 08:08 WBC 11.2 H RBC 2.47 L Hgb 6.8 L Hct 20.6 L MCV MCH MCHC RDW 17.0 H Plt Count Lymph % (Auto) [place] % (Auto) 10.3 H Lymph # [place] # 1.2 H Baso # Seg Neutrophils % Seg Neuts % (Manual) Lymphocytes % (Manual) Monocytes % (Manual) Eosinophils % (Manual) Basophils % (Manual) Nucleated RBC % Seg Neutrophils # Seg Neutrophils # Man Lymphocytes # (Manual) Monocytes # (Manual) Eosinophils # (Manual) Basophils # (Manual) PT INR Fibrinogen dRVVT Confirm Interp Factor V Activity POC ABG pH POC ABG pCO2 POC ABG pO2 ABG pO2 ABG HCO3 ABG Base Excess ABG Hemoglobin Oxyhemoglobin Sodium 135 L Potassium Chloride 96.3 L Carbon Dioxide BUN 61 H Creatinine 3.1 H Glucose POC Glucose 62 L Lactic Acid Calcium 8.2 L Phosphorus Magnesium Direct Bilirubin AST ALT Alkaline Phosphatase Lactate Dehydrogenase Troponin T C-Reactive Protein Total Protein Albumin Prealbumin Triglycerides Cholesterol LDL Cholesterol Direct HDL Cholesterol Urine pH Urine WBC (Auto) Urine Creatinine Urine Total Protein Fluid Total Protein Vancomycin Trough Rheumatoid Factor Complement C4 Miscellaneous Test Crossmatch 11/24/16 11/24/16 11/24/16 08:34 11:20 12:41 WBC RBC Hgb Hct MCV MCH MCHC RDW Plt Count Lymph % (Auto) [place] % (Auto) Lymph # [place] # Baso # Seg Neutrophils % Seg Neuts % (Manual) Lymphocytes % (Manual) Monocytes % (Manual) Eosinophils % (Manual) Basophils % (Manual) Nucleated RBC % Seg Neutrophils # Seg Neutrophils # Man Lymphocytes # (Manual) Monocytes # (Manual) Eosinophils # (Manual) Basophils # (Manual) PT INR Fibrinogen dRVVT Confirm Interp Factor V Activity POC ABG pH POC ABG pCO2 POC ABG pO2 ABG pO2 ABG HCO3 ABG Base Excess ABG Hemoglobin Oxyhemoglobin Sodium Potassium Chloride Carbon Dioxide BUN Creatinine Glucose POC Glucose 108 H Lactic Acid Calcium Phosphorus Magnesium 1.60 L Direct Bilirubin AST ALT Alkaline Phosphatase Lactate Dehydrogenase Troponin T C-Reactive Protein Total Protein Albumin Prealbumin Triglycerides Cholesterol LDL Cholesterol Direct HDL Cholesterol Urine pH Urine WBC (Auto) Urine Creatinine Urine Total Protein Fluid Total Protein Vancomycin Trough Rheumatoid Factor Complement C4 Miscellaneous Test Crossmatch See Detail 11/25/16 11/25/16 11/25/16 00:03 04:42 04:42 WBC RBC 3.03 L Hgb 8.6 L Hct 25.3 L MCV MCH MCHC RDW 16.2 H Plt Count Lymph % (Auto) [place] % (Auto) 8.1 H Lymph # [place] # Baso # Seg Neutrophils % 71.3 H Seg Neuts % (Manual) Lymphocytes % (Manual) Monocytes % (Manual) Eosinophils % (Manual) Basophils % (Manual) Nucleated RBC % Seg Neutrophils # Seg Neutrophils # Man Lymphocytes # (Manual) Monocytes # (Manual) Eosinophils # (Manual) Basophils # (Manual) PT INR Fibrinogen dRVVT Confirm Interp Factor V Activity POC ABG pH POC ABG pCO2 POC ABG pO2 ABG pO2 ABG HCO3 ABG Base Excess ABG Hemoglobin Oxyhemoglobin Sodium Potassium Chloride Carbon Dioxide BUN 61 H Creatinine 3.0 H Glucose 102 H POC Glucose 113 H Lactic Acid Calcium 8.2 L Phosphorus Magnesium Direct Bilirubin AST ALT Alkaline Phosphatase 142 H Lactate Dehydrogenase Troponin T C-Reactive Protein Total Protein 5.7 L Albumin 1.5 L Prealbumin Triglycerides Cholesterol LDL Cholesterol Direct HDL Cholesterol Urine pH Urine WBC (Auto) Urine Creatinine Urine Total Protein Fluid Total Protein Vancomycin Trough Rheumatoid Factor Complement C4 Miscellaneous Test Crossmatch 11/25/16 11/25/16 11/25/16 05:12 11:31 14:12 WBC RBC Hgb Hct MCV MCH MCHC RDW Plt Count Lymph % (Auto) [place] % (Auto) Lymph # [place] # Baso # Seg Neutrophils % Seg Neuts % (Manual) Lymphocytes % (Manual) Monocytes % (Manual) Eosinophils % (Manual) Basophils % (Manual) Nucleated RBC % Seg Neutrophils # Seg Neutrophils # Man Lymphocytes # (Manual) Monocytes # (Manual) Eosinophils # (Manual) Basophils # (Manual) PT INR Fibrinogen dRVVT Confirm Interp Factor V Activity POC ABG pH 7.487 H POC ABG pCO2 POC ABG pO2 153 H ABG pO2 ABG HCO3 ABG Base Excess ABG Hemoglobin Oxyhemoglobin Sodium Potassium Chloride Carbon Dioxide BUN Creatinine Glucose POC Glucose 131 H 140 H Lactic Acid Calcium Phosphorus Magnesium Direct Bilirubin AST ALT Alkaline Phosphatase Lactate Dehydrogenase Troponin T C-Reactive Protein Total Protein Albumin Prealbumin Triglycerides Cholesterol LDL Cholesterol Direct HDL Cholesterol Urine pH Urine WBC (Auto) Urine Creatinine Urine Total Protein Fluid Total Protein Vancomycin Trough Rheumatoid Factor Complement C4 Miscellaneous Test Crossmatch 11/25/16 11/26/16 11/26/16 17:23 00:09 05:13 WBC RBC 2.94 L Hgb 8.4 L Hct 24.6 L MCV MCH MCHC RDW 16.4 H Plt Count Lymph % (Auto) [place] % (Auto) 12.3 H Lymph # [place] # 1.1 H Baso # Seg Neutrophils % Seg Neuts % (Manual) Lymphocytes % (Manual) Monocytes % (Manual) Eosinophils % (Manual) Basophils % (Manual) Nucleated RBC % Seg Neutrophils # Seg Neutrophils # Man Lymphocytes # (Manual) Monocytes # (Manual) Eosinophils # (Manual) Basophils # (Manual) PT INR Fibrinogen dRVVT Confirm Interp Factor V Activity POC ABG pH POC ABG pCO2 POC ABG pO2 ABG pO2 ABG HCO3 ABG Base Excess ABG Hemoglobin Oxyhemoglobin Sodium Potassium Chloride Carbon Dioxide BUN Creatinine Glucose POC Glucose 146 H 112 H Lactic Acid Calcium Phosphorus Magnesium Direct Bilirubin AST ALT Alkaline Phosphatase Lactate Dehydrogenase Troponin T C-Reactive Protein Total Protein Albumin Prealbumin Triglycerides Cholesterol LDL Cholesterol Direct HDL Cholesterol Urine pH Urine WBC (Auto) Urine Creatinine Urine Total Protein Fluid Total Protein Vancomycin Trough Rheumatoid Factor Complement C4 Miscellaneous Test Crossmatch 11/26/16 11/26/16 11/26/16 05:13 05:28 11:53 WBC RBC Hgb Hct MCV MCH MCHC RDW Plt Count Lymph % (Auto) [place] % (Auto) Lymph # [place] # Baso # Seg Neutrophils % Seg Neuts % (Manual) Lymphocytes % (Manual) Monocytes % (Manual) Eosinophils % (Manual) Basophils % (Manual) Nucleated RBC % Seg Neutrophils # Seg Neutrophils # Man Lymphocytes # (Manual) Monocytes # (Manual) Eosinophils # (Manual) Basophils # (Manual) PT INR Fibrinogen dRVVT Confirm Interp Factor V Activity POC ABG pH POC ABG pCO2 POC ABG pO2 ABG pO2 ABG HCO3 ABG Base Excess ABG Hemoglobin Oxyhemoglobin Sodium Potassium Chloride 97.8 L Carbon Dioxide BUN 37 H Creatinine 2.0 H Glucose 109 H POC Glucose 117 H 111 H Lactic Acid Calcium 7.9 L Phosphorus 1.80 L D Magnesium Direct Bilirubin AST ALT Alkaline Phosphatase Lactate Dehydrogenase Troponin T C-Reactive Protein Total Protein Albumin Prealbumin Triglycerides Cholesterol LDL Cholesterol Direct HDL Cholesterol Urine pH Urine WBC (Auto) Urine Creatinine Urine Total Protein Fluid Total Protein Vancomycin Trough Rheumatoid Factor Complement C4 Miscellaneous Test Crossmatch 11/26/16 11/27/16 11/27/16 17:14 04:50 06:02 WBC RBC Hgb Hct MCV MCH MCHC RDW Plt Count Lymph % (Auto) [place] % (Auto) Lymph # [place] # Baso # Seg Neutrophils % Seg Neuts % (Manual) Lymphocytes % (Manual) Monocytes % (Manual) Eosinophils % (Manual) Basophils % (Manual) Nucleated RBC % Seg Neutrophils # Seg Neutrophils # Man Lymphocytes # (Manual) Monocytes # (Manual) Eosinophils # (Manual) Basophils # (Manual) PT INR Fibrinogen dRVVT Confirm Interp Factor V Activity POC ABG pH POC ABG pCO2 POC ABG pO2 ABG pO2 75.2 L ABG HCO3 26.4 H ABG Base Excess ABG Hemoglobin 7.6 L Oxyhemoglobin 94.8 L Sodium Potassium Chloride Carbon Dioxide BUN 49 H Creatinine 2.3 H Glucose POC Glucose 115 H Lactic Acid Calcium Phosphorus 1.50 L Magnesium Direct Bilirubin AST ALT Alkaline Phosphatase Lactate Dehydrogenase Troponin T C-Reactive Protein Total Protein Albumin Prealbumin Triglycerides Cholesterol LDL Cholesterol Direct HDL Cholesterol Urine pH Urine WBC (Auto) Urine Creatinine Urine Total Protein Fluid Total Protein Vancomycin Trough Rheumatoid Factor Complement C4 Miscellaneous Test Crossmatch 11/27/16 11/27/16 11/27/16 06:02 11:25 17:25 WBC 11.6 H RBC 2.75 L Hgb 7.6 L Hct 23.4 L MCV MCH MCHC RDW 16.5 H Plt Count Lymph % (Auto) [place] % (Auto) Lymph # [place] # Baso # Seg Neutrophils % Seg Neuts % (Manual) Lymphocytes % (Manual) Monocytes % (Manual) Eosinophils % (Manual) Basophils % (Manual) Nucleated RBC % Seg Neutrophils # Seg Neutrophils # Man Lymphocytes # (Manual) Monocytes # (Manual) Eosinophils # (Manual) Basophils # (Manual) PT INR Fibrinogen dRVVT Confirm Interp Factor V Activity POC ABG pH POC ABG pCO2 POC ABG pO2 ABG pO2 ABG HCO3 ABG Base Excess ABG Hemoglobin Oxyhemoglobin Sodium Potassium Chloride Carbon Dioxide BUN Creatinine Glucose POC Glucose 114 H 126 H Lactic Acid Calcium Phosphorus Magnesium Direct Bilirubin AST ALT Alkaline Phosphatase Lactate Dehydrogenase Troponin T C-Reactive Protein Total Protein Albumin Prealbumin Triglycerides Cholesterol LDL Cholesterol Direct HDL Cholesterol Urine pH Urine WBC (Auto) Urine Creatinine Urine Total Protein Fluid Total Protein Vancomycin Trough Rheumatoid Factor Complement C4 Miscellaneous Test Crossmatch 11/28/16 11/28/16 11/28/16 04:45 05:33 05:44 WBC RBC Hgb Hct MCV MCH MCHC RDW Plt Count Lymph % (Auto) [place] % (Auto) Lymph # [place] # Baso # Seg Neutrophils % Seg Neuts % (Manual) Lymphocytes % (Manual) Monocytes % (Manual) Eosinophils % (Manual) Basophils % (Manual) Nucleated RBC % Seg Neutrophils # Seg Neutrophils # Man Lymphocytes # (Manual) Monocytes # (Manual) Eosinophils # (Manual) Basophils # (Manual) PT INR Fibrinogen dRVVT Confirm Interp Factor V Activity POC ABG pH POC ABG pCO2 POC ABG pO2 ABG pO2 99.3 H ABG HCO3 ABG Base Excess ABG Hemoglobin 8.3 L Oxyhemoglobin Sodium Potassium Chloride Carbon Dioxide BUN 63 H Creatinine 2.4 H Glucose 102 H POC Glucose 108 H Lactic Acid Calcium Phosphorus 1.80 L Magnesium Direct Bilirubin AST ALT Alkaline Phosphatase Lactate Dehydrogenase Troponin T C-Reactive Protein Total Protein Albumin Prealbumin Triglycerides Cholesterol LDL Cholesterol Direct HDL Cholesterol Urine pH Urine WBC (Auto) Urine Creatinine Urine Total Protein Fluid Total Protein Vancomycin Trough Rheumatoid Factor Complement C4 Miscellaneous Test Crossmatch 11/28/16 11/28/16 11/28/16 12:31 16:09 23:46 WBC RBC Hgb Hct MCV MCH MCHC RDW Plt Count Lymph % (Auto) [place] % (Auto) Lymph # [place] # Baso # Seg Neutrophils % Seg Neuts % (Manual) Lymphocytes % (Manual) Monocytes % (Manual) Eosinophils % (Manual) Basophils % (Manual) Nucleated RBC % Seg Neutrophils # Seg Neutrophils # Man Lymphocytes # (Manual) Monocytes # (Manual) Eosinophils # (Manual) Basophils # (Manual) PT INR Fibrinogen dRVVT Confirm Interp Factor V Activity POC ABG pH POC ABG pCO2 POC ABG pO2 ABG pO2 ABG HCO3 ABG Base Excess ABG Hemoglobin Oxyhemoglobin Sodium Potassium Chloride Carbon Dioxide BUN Creatinine Glucose POC Glucose 126 H 111 H 119 H Lactic Acid Calcium Phosphorus Magnesium Direct Bilirubin AST ALT Alkaline Phosphatase Lactate Dehydrogenase Troponin T C-Reactive Protein Total Protein Albumin Prealbumin Triglycerides Cholesterol LDL Cholesterol Direct HDL Cholesterol Urine pH Urine WBC (Auto) Urine Creatinine Urine Total Protein Fluid Total Protein Vancomycin Trough Rheumatoid Factor Complement C4 Miscellaneous Test Crossmatch 11/29/16 11/29/16 11/29/16 03:33 04:52 05:10 WBC RBC Hgb Hct MCV MCH MCHC RDW Plt Count Lymph % (Auto) [place] % (Auto) Lymph # [place] # Baso # Seg Neutrophils % Seg Neuts % (Manual) Lymphocytes % (Manual) Monocytes % (Manual) Eosinophils % (Manual) Basophils % (Manual) Nucleated RBC % Seg Neutrophils # Seg Neutrophils # Man Lymphocytes # (Manual) Monocytes # (Manual) Eosinophils # (Manual) Basophils # (Manual) PT INR Fibrinogen dRVVT Confirm Interp Factor V Activity POC ABG pH POC ABG pCO2 POC ABG pO2 ABG pO2 ABG HCO3 ABG Base Excess ABG Hemoglobin 7.0 L Oxyhemoglobin 94.9 L Sodium Potassium Chloride Carbon Dioxide BUN 73 H Creatinine 2.7 H Glucose POC Glucose 108 H Lactic Acid Calcium Phosphorus Magnesium Direct Bilirubin AST ALT Alkaline Phosphatase Lactate Dehydrogenase Troponin T C-Reactive Protein Total Protein Albumin Prealbumin Triglycerides Cholesterol LDL Cholesterol Direct HDL Cholesterol Urine pH Urine WBC (Auto) Urine Creatinine Urine Total Protein Fluid Total Protein Vancomycin Trough Rheumatoid Factor Complement C4 Miscellaneous Test Crossmatch 11/29/16 11/29/16 11/29/16 12:16 18:05 23:46 WBC RBC Hgb Hct MCV MCH MCHC RDW Plt Count Lymph % (Auto) [place] % (Auto) Lymph # [place] # Baso # Seg Neutrophils % Seg Neuts % (Manual) Lymphocytes % (Manual) Monocytes % (Manual) Eosinophils % (Manual) Basophils % (Manual) Nucleated RBC % Seg Neutrophils # Seg Neutrophils # Man Lymphocytes # (Manual) Monocytes # (Manual) Eosinophils # (Manual) Basophils # (Manual) PT INR Fibrinogen dRVVT Confirm Interp Factor V Activity POC ABG pH POC ABG pCO2 POC ABG pO2 ABG pO2 ABG HCO3 ABG Base Excess ABG Hemoglobin Oxyhemoglobin Sodium Potassium Chloride Carbon Dioxide BUN Creatinine Glucose POC Glucose 133 H 146 H 141 H Lactic Acid Calcium Phosphorus Magnesium Direct Bilirubin AST ALT Alkaline Phosphatase Lactate Dehydrogenase Troponin T C-Reactive Protein Total Protein Albumin Prealbumin Triglycerides Cholesterol LDL Cholesterol Direct HDL Cholesterol Urine pH Urine WBC (Auto) Urine Creatinine Urine Total Protein Fluid Total Protein Vancomycin Trough Rheumatoid Factor Complement C4 Miscellaneous Test Crossmatch 11/30/16 11/30/16 11/30/16 04:17 04:17 04:32 WBC 12.0 H RBC 2.80 L Hgb 7.8 L Hct 23.6 L MCV MCH MCHC RDW 16.6 H Plt Count Lymph % (Auto) [place] % (Auto) 11.3 H Lymph # [place] # 1.4 H Baso # Seg Neutrophils % Seg Neuts % (Manual) Lymphocytes % (Manual) Monocytes % (Manual) Eosinophils % (Manual) Basophils % (Manual) Nucleated RBC % Seg Neutrophils # 8.2 H Seg Neutrophils # Man Lymphocytes # (Manual) Monocytes # (Manual) Eosinophils # (Manual) Basophils # (Manual) PT INR Fibrinogen dRVVT Confirm Interp Factor V Activity POC ABG pH POC ABG pCO2 POC ABG pO2 ABG pO2 ABG HCO3 ABG Base Excess ABG Hemoglobin Oxyhemoglobin Sodium 169 H* D Potassium 5.1 H Chloride 121.5 H Carbon Dioxide BUN 34 H Creatinine 1.3 H D Glucose 133 H POC Glucose 131 H Lactic Acid Calcium 10.3 H Phosphorus Magnesium Direct Bilirubin AST ALT Alkaline Phosphatase Lactate Dehydrogenase Troponin T C-Reactive Protein Total Protein Albumin Prealbumin Triglycerides Cholesterol LDL Cholesterol Direct HDL Cholesterol Urine pH Urine WBC (Auto) Urine Creatinine Urine Total Protein Fluid Total Protein Vancomycin Trough Rheumatoid Factor Complement C4 Miscellaneous Test Crossmatch 11/30/16 11/30/16 11/30/16 05:45 11:10 17:26 WBC RBC Hgb Hct MCV MCH MCHC RDW Plt Count Lymph % (Auto) [place] % (Auto) Lymph # [place] # Baso # Seg Neutrophils % Seg Neuts % (Manual) Lymphocytes % (Manual) Monocytes % (Manual) Eosinophils % (Manual) Basophils % (Manual) Nucleated RBC % Seg Neutrophils # Seg Neutrophils # Man Lymphocytes # (Manual) Monocytes # (Manual) Eosinophils # (Manual) Basophils # (Manual) PT INR Fibrinogen dRVVT Confirm Interp Factor V Activity POC ABG pH POC ABG pCO2 POC ABG pO2 ABG pO2 ABG HCO3 ABG Base Excess ABG Hemoglobin Oxyhemoglobin Sodium Potassium Chloride Carbon Dioxide BUN 45 H Creatinine 1.6 H Glucose 131 H POC Glucose 146 H 134 H Lactic Acid Calcium Phosphorus Magnesium Direct Bilirubin AST ALT Alkaline Phosphatase Lactate Dehydrogenase Troponin T C-Reactive Protein Total Protein Albumin Prealbumin Triglycerides Cholesterol LDL Cholesterol Direct HDL Cholesterol Urine pH Urine WBC (Auto) Urine Creatinine Urine Total Protein Fluid Total Protein Vancomycin Trough Rheumatoid Factor Complement C4 Miscellaneous Test Crossmatch 11/30/16 12/01/16 12/01/16 23:35 00:06 03:35 WBC RBC Hgb Hct MCV MCH MCHC RDW Plt Count Lymph % (Auto) [place] % (Auto) Lymph # [place] # Baso # Seg Neutrophils % Seg Neuts % (Manual) Lymphocytes % (Manual) Monocytes % (Manual) Eosinophils % (Manual) Basophils % (Manual) Nucleated RBC % Seg Neutrophils # Seg Neutrophils # Man Lymphocytes # (Manual) Monocytes # (Manual) Eosinophils # (Manual) Basophils # (Manual) PT INR Fibrinogen dRVVT Confirm Interp Factor V Activity POC ABG pH POC ABG pCO2 POC ABG pO2 ABG pO2 ABG HCO3 ABG Base Excess ABG Hemoglobin 6.9 L Oxyhemoglobin Sodium Potassium Chloride Carbon Dioxide BUN 58 H Creatinine 1.8 H Glucose 146 H POC Glucose 151 H Lactic Acid Calcium Phosphorus Magnesium Direct Bilirubin AST ALT Alkaline Phosphatase Lactate Dehydrogenase Troponin T C-Reactive Protein Total Protein Albumin Prealbumin Triglycerides Cholesterol LDL Cholesterol Direct HDL Cholesterol Urine pH Urine WBC (Auto) Urine Creatinine Urine Total Protein Fluid Total Protein Vancomycin Trough Rheumatoid Factor Complement C4 Miscellaneous Test Crossmatch 12/01/16 12/01/16 12/01/16 03:35 05:47 11:52 WBC 12.3 H RBC 2.82 L Hgb 7.8 L Hct 23.7 L MCV MCH MCHC RDW 16.7 H Plt Count Lymph % (Auto) [place] % (Auto) 9.8 H Lymph # [place] # 1.2 H Baso # Seg Neutrophils % Seg Neuts % (Manual) Lymphocytes % (Manual) Monocytes % (Manual) Eosinophils % (Manual) Basophils % (Manual) Nucleated RBC % Seg Neutrophils # 8.4 H Seg Neutrophils # Man Lymphocytes # (Manual) Monocytes # (Manual) Eosinophils # (Manual) Basophils # (Manual) PT INR Fibrinogen dRVVT Confirm Interp Factor V Activity POC ABG pH POC ABG pCO2 POC ABG pO2 ABG pO2 ABG HCO3 ABG Base Excess ABG Hemoglobin Oxyhemoglobin Sodium Potassium Chloride Carbon Dioxide BUN Creatinine Glucose POC Glucose 152 H 152 H Lactic Acid Calcium Phosphorus Magnesium Direct Bilirubin AST ALT Alkaline Phosphatase Lactate Dehydrogenase Troponin T C-Reactive Protein Total Protein Albumin Prealbumin Triglycerides Cholesterol LDL Cholesterol Direct HDL Cholesterol Urine pH Urine WBC (Auto) Urine Creatinine Urine Total Protein Fluid Total Protein Vancomycin Trough Rheumatoid Factor Complement C4 Miscellaneous Test Crossmatch 12/01/16 12/01/16 12/02/16 17:40 23:41 05:00 WBC RBC Hgb Hct MCV MCH MCHC RDW Plt Count Lymph % (Auto) [place] % (Auto) Lymph # [place] # Baso # Seg Neutrophils % Seg Neuts % (Manual) Lymphocytes % (Manual) Monocytes % (Manual) Eosinophils % (Manual) Basophils % (Manual) Nucleated RBC % Seg Neutrophils # Seg Neutrophils # Man Lymphocytes # (Manual) Monocytes # (Manual) Eosinophils # (Manual) Basophils # (Manual) PT INR Fibrinogen dRVVT Confirm Interp Factor V Activity POC ABG pH POC ABG pCO2 POC ABG pO2 ABG pO2 ABG HCO3 ABG Base Excess ABG Hemoglobin Oxyhemoglobin Sodium Potassium Chloride Carbon Dioxide BUN 45 H Creatinine Glucose 115 H POC Glucose 140 H 144 H Lactic Acid Calcium Phosphorus Magnesium Direct Bilirubin AST ALT Alkaline Phosphatase Lactate Dehydrogenase Troponin T C-Reactive Protein Total Protein Albumin Prealbumin Triglycerides Cholesterol LDL Cholesterol Direct HDL Cholesterol Urine pH Urine WBC (Auto) Urine Creatinine Urine Total Protein Fluid Total Protein Vancomycin Trough Rheumatoid Factor Complement C4 Miscellaneous Test Crossmatch 12/02/16 12/02/16 12/02/16 05:31 11:20 17:38 WBC RBC Hgb Hct MCV MCH MCHC RDW Plt Count Lymph % (Auto) [place] % (Auto) Lymph # [place] # Baso # Seg Neutrophils % Seg Neuts % (Manual) Lymphocytes % (Manual) Monocytes % (Manual) Eosinophils % (Manual) Basophils % (Manual) Nucleated RBC % Seg Neutrophils # Seg Neutrophils # Man Lymphocytes # (Manual) Monocytes # (Manual) Eosinophils # (Manual) Basophils # (Manual) PT INR Fibrinogen dRVVT Confirm Interp Factor V Activity POC ABG pH POC ABG pCO2 POC ABG pO2 ABG pO2 ABG HCO3 ABG Base Excess ABG Hemoglobin Oxyhemoglobin Sodium Potassium Chloride Carbon Dioxide BUN Creatinine Glucose POC Glucose 136 H 177 H 139 H Lactic Acid Calcium Phosphorus Magnesium Direct Bilirubin AST ALT Alkaline Phosphatase Lactate Dehydrogenase Troponin T C-Reactive Protein Total Protein Albumin Prealbumin Triglycerides Cholesterol LDL Cholesterol Direct HDL Cholesterol Urine pH Urine WBC (Auto) Urine Creatinine Urine Total Protein Fluid Total Protein Vancomycin Trough Rheumatoid Factor Complement C4 Miscellaneous Test Crossmatch 12/02/16 12/03/16 12/03/16 23:43 04:00 04:00 WBC 20.4 H RBC 2.74 L Hgb 7.4 L Hct 23.6 L MCV MCH 27 L MCHC RDW 17.1 H Plt Count Lymph % (Auto) [place] % (Auto) Lymph # [place] # Baso # Seg Neutrophils % Seg Neuts % (Manual) 31.0 L Lymphocytes % (Manual) Monocytes % (Manual) Eosinophils % (Manual) Basophils % (Manual) Nucleated RBC % Seg Neutrophils # Seg Neutrophils # Man Lymphocytes # (Manual) Monocytes # (Manual) Eosinophils # (Manual) Basophils # (Manual) PT INR Fibrinogen dRVVT Confirm Interp Factor V Activity POC ABG pH POC ABG pCO2 POC ABG pO2 ABG pO2 ABG HCO3 ABG Base Excess ABG Hemoglobin Oxyhemoglobin Sodium Potassium Chloride Carbon Dioxide BUN 61 H Creatinine 1.6 H Glucose 119 H POC Glucose 158 H Lactic Acid Calcium Phosphorus Magnesium Direct Bilirubin AST ALT Alkaline Phosphatase Lactate Dehydrogenase Troponin T C-Reactive Protein Total Protein Albumin Prealbumin Triglycerides Cholesterol LDL Cholesterol Direct HDL Cholesterol Urine pH Urine WBC (Auto) Urine Creatinine Urine Total Protein Fluid Total Protein Vancomycin Trough Rheumatoid Factor Complement C4 Miscellaneous Test Crossmatch 12/03/16 12/03/16 12/03/16 05:02 12:11 18:16 WBC RBC Hgb Hct MCV MCH MCHC RDW Plt Count Lymph % (Auto) [place] % (Auto) Lymph # [place] # Baso # Seg Neutrophils % Seg Neuts % (Manual) Lymphocytes % (Manual) Monocytes % (Manual) Eosinophils % (Manual) Basophils % (Manual) Nucleated RBC % Seg Neutrophils # Seg Neutrophils # Man Lymphocytes # (Manual) Monocytes # (Manual) Eosinophils # (Manual) Basophils # (Manual) PT INR Fibrinogen dRVVT Confirm Interp Factor V Activity POC ABG pH POC ABG pCO2 POC ABG pO2 ABG pO2 ABG HCO3 ABG Base Excess ABG Hemoglobin Oxyhemoglobin Sodium Potassium Chloride Carbon Dioxide BUN Creatinine Glucose POC Glucose 146 H 157 H 124 H Lactic Acid Calcium Phosphorus Magnesium Direct Bilirubin AST ALT Alkaline Phosphatase Lactate Dehydrogenase Troponin T C-Reactive Protein Total Protein Albumin Prealbumin Triglycerides Cholesterol LDL Cholesterol Direct HDL Cholesterol Urine pH Urine WBC (Auto) Urine Creatinine Urine Total Protein Fluid Total Protein Vancomycin Trough Rheumatoid Factor Complement C4 Miscellaneous Test Crossmatch 12/03/16 12/04/16 12/04/16 23:41 04:00 04:45 WBC RBC Hgb Hct MCV MCH MCHC RDW Plt Count Lymph % (Auto) [place] % (Auto) Lymph # [place] # Baso # Seg Neutrophils % Seg Neuts % (Manual) Lymphocytes % (Manual) Monocytes % (Manual) Eosinophils % (Manual) Basophils % (Manual) Nucleated RBC % Seg Neutrophils # Seg Neutrophils # Man Lymphocytes # (Manual) Monocytes # (Manual) Eosinophils # (Manual) Basophils # (Manual) PT INR Fibrinogen dRVVT Confirm Interp Factor V Activity POC ABG pH POC ABG pCO2 POC ABG pO2 ABG pO2 ABG HCO3 ABG Base Excess ABG Hemoglobin Oxyhemoglobin Sodium Potassium Chloride Carbon Dioxide BUN 76 H Creatinine 1.6 H Glucose POC Glucose 130 H 136 H Lactic Acid Calcium Phosphorus Magnesium Direct Bilirubin AST ALT Alkaline Phosphatase 155 H Lactate Dehydrogenase Troponin T C-Reactive Protein Total Protein 5.5 L Albumin 1.5 L Prealbumin Triglycerides Cholesterol LDL Cholesterol Direct HDL Cholesterol Urine pH Urine WBC (Auto) Urine Creatinine Urine Total Protein Fluid Total Protein Vancomycin Trough Rheumatoid Factor Complement C4 Miscellaneous Test Crossmatch 12/04/16 12/04/16 12/05/16 12:08 17:23 00:10 WBC RBC Hgb Hct MCV MCH MCHC RDW Plt Count Lymph % (Auto) [place] % (Auto) Lymph # [place] # Baso # Seg Neutrophils % Seg Neuts % (Manual) Lymphocytes % (Manual) Monocytes % (Manual) Eosinophils % (Manual) Basophils % (Manual) Nucleated RBC % Seg Neutrophils # Seg Neutrophils # Man Lymphocytes # (Manual) Monocytes # (Manual) Eosinophils # (Manual) Basophils # (Manual) PT INR Fibrinogen dRVVT Confirm Interp Factor V Activity POC ABG pH POC ABG pCO2 POC ABG pO2 ABG pO2 ABG HCO3 ABG Base Excess ABG Hemoglobin Oxyhemoglobin Sodium Potassium Chloride Carbon Dioxide BUN Creatinine Glucose POC Glucose 114 H 129 H 124 H Lactic Acid Calcium Phosphorus Magnesium Direct Bilirubin AST ALT Alkaline Phosphatase Lactate Dehydrogenase Troponin T C-Reactive Protein Total Protein Albumin Prealbumin Triglycerides Cholesterol LDL Cholesterol Direct HDL Cholesterol Urine pH Urine WBC (Auto) Urine Creatinine Urine Total Protein Fluid Total Protein Vancomycin Trough Rheumatoid Factor Complement C4 Miscellaneous Test Crossmatch 12/05/16 12/05/16 12/05/16 05:00 05:00 05:18 WBC RBC Hgb Hct MCV MCH MCHC RDW Plt Count Lymph % (Auto) [place] % (Auto) Lymph # [place] # Baso # Seg Neutrophils % Seg Neuts % (Manual) Lymphocytes % (Manual) Monocytes % (Manual) Eosinophils % (Manual) Basophils % (Manual) Nucleated RBC % Seg Neutrophils # Seg Neutrophils # Man Lymphocytes # (Manual) Monocytes # (Manual) Eosinophils # (Manual) Basophils # (Manual) PT INR Fibrinogen dRVVT Confirm Interp Factor V Activity POC ABG pH POC ABG pCO2 POC ABG pO2 ABG pO2 ABG HCO3 ABG Base Excess ABG Hemoglobin Oxyhemoglobin Sodium Potassium Chloride Carbon Dioxide 21 L BUN 85 H Creatinine 1.9 H Glucose 131 H POC Glucose 154 H Lactic Acid Calcium Phosphorus Magnesium Direct Bilirubin AST ALT Alkaline Phosphatase Lactate Dehydrogenase Troponin T C-Reactive Protein 19.30 H Total Protein Albumin Prealbumin Triglycerides Cholesterol LDL Cholesterol Direct HDL Cholesterol Urine pH Urine WBC (Auto) Urine Creatinine Urine Total Protein Fluid Total Protein Vancomycin Trough Rheumatoid Factor Complement C4 Miscellaneous Test Crossmatch 12/05/16 12/05/16 12/05/16 11:43 17:46 23:25 WBC RBC Hgb Hct MCV MCH MCHC RDW Plt Count Lymph % (Auto) [place] % (Auto) Lymph # [place] # Baso # Seg Neutrophils % Seg Neuts % (Manual) Lymphocytes % (Manual) Monocytes % (Manual) Eosinophils % (Manual) Basophils % (Manual) Nucleated RBC % Seg Neutrophils # Seg Neutrophils # Man Lymphocytes # (Manual) Monocytes # (Manual) Eosinophils # (Manual) Basophils # (Manual) PT INR Fibrinogen dRVVT Confirm Interp Factor V Activity POC ABG pH POC ABG pCO2 POC ABG pO2 ABG pO2 ABG HCO3 ABG Base Excess ABG Hemoglobin Oxyhemoglobin Sodium Potassium Chloride Carbon Dioxide BUN Creatinine Glucose POC Glucose 117 H 113 H 111 H Lactic Acid Calcium Phosphorus Magnesium Direct Bilirubin AST ALT Alkaline Phosphatase Lactate Dehydrogenase Troponin T C-Reactive Protein Total Protein Albumin Prealbumin Triglycerides Cholesterol LDL Cholesterol Direct HDL Cholesterol Urine pH Urine WBC (Auto) Urine Creatinine Urine Total Protein Fluid Total Protein Vancomycin Trough Rheumatoid Factor Complement C4 Miscellaneous Test Crossmatch 12/05/16 12/06/16 12/06/16 Unknown 04:58 06:00 WBC RBC Hgb Hct MCV MCH MCHC RDW Plt Count Lymph % (Auto) [place] % (Auto) Lymph # [place] # Baso # Seg Neutrophils % Seg Neuts % (Manual) Lymphocytes % (Manual) Monocytes % (Manual) Eosinophils % (Manual) Basophils % (Manual) Nucleated RBC % Seg Neutrophils # Seg Neutrophils # Man Lymphocytes # (Manual) Monocytes # (Manual) Eosinophils # (Manual) Basophils # (Manual) PT INR Fibrinogen dRVVT Confirm Interp Factor V Activity POC ABG pH POC ABG pCO2 POC ABG pO2 ABG pO2 75.2 L ABG HCO3 ABG Base Excess -3.4 L ABG Hemoglobin 7.4 L Oxyhemoglobin 94.5 L Sodium Potassium Chloride Carbon Dioxide 20 L BUN 99 H Creatinine 2.1 H Glucose 126 H POC Glucose 145 H Lactic Acid Calcium Phosphorus 4.80 H Magnesium Direct Bilirubin AST ALT Alkaline Phosphatase Lactate Dehydrogenase Troponin T C-Reactive Protein Total Protein Albumin Prealbumin Triglycerides Cholesterol LDL Cholesterol Direct HDL Cholesterol Urine pH Urine WBC (Auto) Urine Creatinine Urine Total Protein Fluid Total Protein Vancomycin Trough Rheumatoid Factor Complement C4 Miscellaneous Test Crossmatch 12/06/16 12/06/16 12/06/16 06:46 11:54 17:55 WBC RBC Hgb 8.3 L Hct 26.4 L MCV MCH MCHC RDW Plt Count Lymph % (Auto) [place] % (Auto) Lymph # [place] # Baso # Seg Neutrophils % Seg Neuts % (Manual) Lymphocytes % (Manual) Monocytes % (Manual) Eosinophils % (Manual) Basophils % (Manual) Nucleated RBC % Seg Neutrophils # Seg Neutrophils # Man Lymphocytes # (Manual) Monocytes # (Manual) Eosinophils # (Manual) Basophils # (Manual) PT INR Fibrinogen dRVVT Confirm Interp Factor V Activity POC ABG pH POC ABG pCO2 POC ABG pO2 ABG pO2 ABG HCO3 ABG Base Excess ABG Hemoglobin Oxyhemoglobin Sodium Potassium Chloride Carbon Dioxide BUN Creatinine Glucose POC Glucose 126 H 157 H Lactic Acid Calcium Phosphorus Magnesium Direct Bilirubin AST ALT Alkaline Phosphatase Lactate Dehydrogenase Troponin T C-Reactive Protein Total Protein Albumin Prealbumin Triglycerides Cholesterol LDL Cholesterol Direct HDL Cholesterol Urine pH Urine WBC (Auto) Urine Creatinine Urine Total Protein Fluid Total Protein Vancomycin Trough Rheumatoid Factor Complement C4 Miscellaneous Test Crossmatch 12/06/16 12/07/16 12/07/16 23:59 05:34 06:30 WBC RBC Hgb Hct MCV MCH MCHC RDW Plt Count Lymph % (Auto) [place] % (Auto) Lymph # [place] # Baso # Seg Neutrophils % Seg Neuts % (Manual) Lymphocytes % (Manual) Monocytes % (Manual) Eosinophils % (Manual) Basophils % (Manual) Nucleated RBC % Seg Neutrophils # Seg Neutrophils # Man Lymphocytes # (Manual) Monocytes # (Manual) Eosinophils # (Manual) Basophils # (Manual) PT INR Fibrinogen dRVVT Confirm Interp Factor V Activity POC ABG pH POC ABG pCO2 POC ABG pO2 ABG pO2 ABG HCO3 ABG Base Excess ABG Hemoglobin Oxyhemoglobin Sodium Potassium Chloride Carbon Dioxide BUN 67 H Creatinine 1.4 H Glucose 126 H POC Glucose 129 H 129 H Lactic Acid Calcium Phosphorus Magnesium Direct Bilirubin AST ALT Alkaline Phosphatase Lactate Dehydrogenase Troponin T C-Reactive Protein Total Protein Albumin Prealbumin Triglycerides Cholesterol LDL Cholesterol Direct HDL Cholesterol Urine pH Urine WBC (Auto) Urine Creatinine Urine Total Protein Fluid Total Protein Vancomycin Trough Rheumatoid Factor Complement C4 Miscellaneous Test Crossmatch 12/07/16 12/07/16 12/07/16 06:30 08:00 09:45 WBC 18.8 H RBC 2.52 L Hgb 6.9 L 6.8 L Hct 21.2 L 21.1 L MCV MCH 27 L MCHC RDW 18.0 H Plt Count Lymph % (Auto) [place] % (Auto) 9.9 H Lymph # [place] # 1.9 H Baso # Seg Neutrophils % 71.8 H Seg Neuts % (Manual) Lymphocytes % (Manual) Monocytes % (Manual) Eosinophils % (Manual) Basophils % (Manual) Nucleated RBC % Seg Neutrophils # 13.5 H Seg Neutrophils # Man Lymphocytes # (Manual) Monocytes # (Manual) Eosinophils # (Manual) Basophils # (Manual) PT INR Fibrinogen dRVVT Confirm Interp Factor V Activity POC ABG pH POC ABG pCO2 POC ABG pO2 ABG pO2 ABG HCO3 ABG Base Excess ABG Hemoglobin Oxyhemoglobin Sodium Potassium Chloride Carbon Dioxide BUN Creatinine Glucose POC Glucose Lactic Acid Calcium Phosphorus Magnesium Direct Bilirubin AST ALT Alkaline Phosphatase Lactate Dehydrogenase Troponin T C-Reactive Protein Total Protein Albumin Prealbumin Triglycerides Cholesterol LDL Cholesterol Direct HDL Cholesterol Urine pH Urine WBC (Auto) Urine Creatinine Urine Total Protein Fluid Total Protein Vancomycin Trough Rheumatoid Factor Complement C4 Miscellaneous Test Crossmatch See Detail 12/07/16 12/07/16 12/07/16 11:44 18:19 23:59 WBC RBC Hgb Hct MCV MCH MCHC RDW Plt Count Lymph % (Auto) [place] % (Auto) Lymph # [place] # Baso # Seg Neutrophils % Seg Neuts % (Manual) Lymphocytes % (Manual) Monocytes % (Manual) Eosinophils % (Manual) Basophils % (Manual) Nucleated RBC % Seg Neutrophils # Seg Neutrophils # Man Lymphocytes # (Manual) Monocytes # (Manual) Eosinophils # (Manual) Basophils # (Manual) PT INR Fibrinogen dRVVT Confirm Interp Factor V Activity POC ABG pH POC ABG pCO2 POC ABG pO2 ABG pO2 ABG HCO3 ABG Base Excess ABG Hemoglobin Oxyhemoglobin Sodium Potassium Chloride Carbon Dioxide BUN Creatinine Glucose POC Glucose 137 H 138 H 133 H Lactic Acid Calcium Phosphorus Magnesium Direct Bilirubin AST ALT Alkaline Phosphatase Lactate Dehydrogenase Troponin T C-Reactive Protein Total Protein Albumin Prealbumin Triglycerides Cholesterol LDL Cholesterol Direct HDL Cholesterol Urine pH Urine WBC (Auto) Urine Creatinine Urine Total Protein Fluid Total Protein Vancomycin Trough Rheumatoid Factor Complement C4 Miscellaneous Test Crossmatch 12/08/16 12/08/16 12/08/16 05:25 05:30 05:30 WBC 23.8 H RBC 2.88 L Hgb 8.1 L Hct 24.3 L MCV MCH MCHC RDW 16.7 H Plt Count Lymph % (Auto) [place] % (Auto) Lymph # [place] # Baso # Seg Neutrophils % Seg Neuts % (Manual) 76.0 H Lymphocytes % (Manual) 9.0 L Monocytes % (Manual) 9.0 H Eosinophils % (Manual) Basophils % (Manual) Nucleated RBC % Seg Neutrophils # Seg Neutrophils # Man 18.1 H Lymphocytes # (Manual) Monocytes # (Manual) 2.1 H Eosinophils # (Manual) Basophils # (Manual) PT INR Fibrinogen dRVVT Confirm Interp Factor V Activity POC ABG pH POC ABG pCO2 POC ABG pO2 ABG pO2 ABG HCO3 ABG Base Excess ABG Hemoglobin Oxyhemoglobin Sodium Potassium Chloride Carbon Dioxide 21 L BUN 76 H Creatinine 1.6 H Glucose 133 H POC Glucose 177 H Lactic Acid Calcium Phosphorus Magnesium Direct Bilirubin AST ALT Alkaline Phosphatase Lactate Dehydrogenase Troponin T C-Reactive Protein Total Protein Albumin Prealbumin Triglycerides Cholesterol LDL Cholesterol Direct HDL Cholesterol Urine pH Urine WBC (Auto) Urine Creatinine Urine Total Protein Fluid Total Protein Vancomycin Trough Rheumatoid Factor Complement C4 Miscellaneous Test Crossmatch 12/08/16 12/08/16 12/09/16 11:45 18:00 00:00 WBC RBC Hgb Hct MCV MCH MCHC RDW Plt Count Lymph % (Auto) [place] % (Auto) Lymph # [place] # Baso # Seg Neutrophils % Seg Neuts % (Manual) Lymphocytes % (Manual) Monocytes % (Manual) Eosinophils % (Manual) Basophils % (Manual) Nucleated RBC % Seg Neutrophils # Seg Neutrophils # Man Lymphocytes # (Manual) Monocytes # (Manual) Eosinophils # (Manual) Basophils # (Manual) PT INR Fibrinogen dRVVT Confirm Interp Factor V Activity POC ABG pH POC ABG pCO2 POC ABG pO2 ABG pO2 ABG HCO3 ABG Base Excess ABG Hemoglobin Oxyhemoglobin Sodium Potassium Chloride Carbon Dioxide BUN Creatinine Glucose POC Glucose 163 H 123 H 137 H Lactic Acid Calcium Phosphorus Magnesium Direct Bilirubin AST ALT Alkaline Phosphatase Lactate Dehydrogenase Troponin T C-Reactive Protein Total Protein Albumin Prealbumin Triglycerides Cholesterol LDL Cholesterol Direct HDL Cholesterol Urine pH Urine WBC (Auto) Urine Creatinine Urine Total Protein Fluid Total Protein Vancomycin Trough Rheumatoid Factor Complement C4 Miscellaneous Test Crossmatch 12/09/16 12/09/16 12/09/16 05:34 06:00 06:00 WBC 15.5 H RBC 2.87 L Hgb 8.0 L Hct 24.2 L MCV MCH MCHC RDW 17.2 H Plt Count Lymph % (Auto) [place] % (Auto) 11.6 H Lymph # [place] # 1.8 H Baso # Seg Neutrophils % 70.8 H Seg Neuts % (Manual) Lymphocytes % (Manual) Monocytes % (Manual) Eosinophils % (Manual) Basophils % (Manual) Nucleated RBC % Seg Neutrophils # 11.0 H Seg Neutrophils # Man Lymphocytes # (Manual) Monocytes # (Manual) Eosinophils # (Manual) Basophils # (Manual) PT INR Fibrinogen dRVVT Confirm Interp Factor V Activity POC ABG pH POC ABG pCO2 POC ABG pO2 ABG pO2 ABG HCO3 ABG Base Excess ABG Hemoglobin Oxyhemoglobin Sodium Potassium Chloride Carbon Dioxide BUN 51 H Creatinine Glucose 117 H POC Glucose 136 H Lactic Acid Calcium Phosphorus Magnesium Direct Bilirubin AST ALT Alkaline Phosphatase Lactate Dehydrogenase Troponin T C-Reactive Protein Total Protein Albumin Prealbumin Triglycerides Cholesterol LDL Cholesterol Direct HDL Cholesterol Urine pH Urine WBC (Auto) Urine Creatinine Urine Total Protein Fluid Total Protein Vancomycin Trough Rheumatoid Factor Complement C4 Miscellaneous Test Crossmatch 12/09/16 12/09/16 12/09/16 12:29 17:52 23:10 WBC RBC Hgb Hct MCV MCH MCHC RDW Plt Count Lymph % (Auto) [place] % (Auto) Lymph # [place] # Baso # Seg Neutrophils % Seg Neuts % (Manual) Lymphocytes % (Manual) Monocytes % (Manual) Eosinophils % (Manual) Basophils % (Manual) Nucleated RBC % Seg Neutrophils # Seg Neutrophils # Man Lymphocytes # (Manual) Monocytes # (Manual) Eosinophils # (Manual) Basophils # (Manual) PT INR Fibrinogen dRVVT Confirm Interp Factor V Activity POC ABG pH POC ABG pCO2 POC ABG pO2 ABG pO2 ABG HCO3 ABG Base Excess ABG Hemoglobin Oxyhemoglobin Sodium Potassium Chloride Carbon Dioxide BUN Creatinine Glucose POC Glucose 139 H 140 H 129 H Lactic Acid Calcium Phosphorus Magnesium Direct Bilirubin AST ALT Alkaline Phosphatase Lactate Dehydrogenase Troponin T C-Reactive Protein Total Protein Albumin Prealbumin Triglycerides Cholesterol LDL Cholesterol Direct HDL Cholesterol Urine pH Urine WBC (Auto) Urine Creatinine Urine Total Protein Fluid Total Protein Vancomycin Trough Rheumatoid Factor Complement C4 Miscellaneous Test Crossmatch 12/10/16 12/10/16 12/10/16 05:00 05:00 06:54 WBC 15.7 H RBC 2.87 L Hgb 8.2 L Hct 24.4 L MCV MCH MCHC RDW 17.2 H Plt Count Lymph % (Auto) [place] % (Auto) 8.3 H Lymph # [place] # 1.3 H Baso # Seg Neutrophils % 72.8 H Seg Neuts % (Manual) Lymphocytes % (Manual) Monocytes % (Manual) Eosinophils % (Manual) Basophils % (Manual) Nucleated RBC % Seg Neutrophils # 11.4 H Seg Neutrophils # Man Lymphocytes # (Manual) Monocytes # (Manual) Eosinophils # (Manual) Basophils # (Manual) PT INR Fibrinogen dRVVT Confirm Interp Factor V Activity POC ABG pH POC ABG pCO2 POC ABG pO2 ABG pO2 ABG HCO3 ABG Base Excess ABG Hemoglobin Oxyhemoglobin Sodium Potassium Chloride Carbon Dioxide BUN 64 H Creatinine 1.4 H Glucose 134 H POC Glucose 154 H Lactic Acid Calcium Phosphorus Magnesium Direct Bilirubin AST ALT Alkaline Phosphatase Lactate Dehydrogenase Troponin T C-Reactive Protein Total Protein Albumin Prealbumin Triglycerides Cholesterol LDL Cholesterol Direct HDL Cholesterol Urine pH Urine WBC (Auto) Urine Creatinine Urine Total Protein Fluid Total Protein Vancomycin Trough Rheumatoid Factor Complement C4 Miscellaneous Test Crossmatch 12/10/16 12/10/16 12/10/16 11:58 17:29 23:52 WBC RBC Hgb Hct MCV MCH MCHC RDW Plt Count Lymph % (Auto) [place] % (Auto) Lymph # [place] # Baso # Seg Neutrophils % Seg Neuts % (Manual) Lymphocytes % (Manual) Monocytes % (Manual) Eosinophils % (Manual) Basophils % (Manual) Nucleated RBC % Seg Neutrophils # Seg Neutrophils # Man Lymphocytes # (Manual) Monocytes # (Manual) Eosinophils # (Manual) Basophils # (Manual) PT INR Fibrinogen dRVVT Confirm Interp Factor V Activity POC ABG pH POC ABG pCO2 POC ABG pO2 ABG pO2 ABG HCO3 ABG Base Excess ABG Hemoglobin Oxyhemoglobin Sodium Potassium Chloride Carbon Dioxide BUN Creatinine Glucose POC Glucose 144 H 163 H 125 H Lactic Acid Calcium Phosphorus Magnesium Direct Bilirubin AST ALT Alkaline Phosphatase Lactate Dehydrogenase Troponin T C-Reactive Protein Total Protein Albumin Prealbumin Triglycerides Cholesterol LDL Cholesterol Direct HDL Cholesterol Urine pH Urine WBC (Auto) Urine Creatinine Urine Total Protein Fluid Total Protein Vancomycin Trough Rheumatoid Factor Complement C4 Miscellaneous Test Crossmatch 12/11/16 12/11/16 12/11/16 05:38 06:30 06:30 WBC 14.4 H RBC 2.76 L Hgb 7.7 L Hct 23.4 L MCV MCH MCHC RDW 17.2 H Plt Count Lymph % (Auto) [place] % (Auto) 8.8 H Lymph # [place] # 1.3 H Baso # Seg Neutrophils % 72.5 H Seg Neuts % (Manual) Lymphocytes % (Manual) Monocytes % (Manual) Eosinophils % (Manual) Basophils % (Manual) Nucleated RBC % Seg Neutrophils # 10.5 H Seg Neutrophils # Man Lymphocytes # (Manual) Monocytes # (Manual) Eosinophils # (Manual) Basophils # (Manual) PT INR Fibrinogen dRVVT Confirm Interp Factor V Activity POC ABG pH POC ABG pCO2 POC ABG pO2 ABG pO2 ABG HCO3 ABG Base Excess ABG Hemoglobin Oxyhemoglobin Sodium Potassium Chloride Carbon Dioxide BUN 43 H Creatinine Glucose 124 H POC Glucose 141 H Lactic Acid Calcium 8.3 L Phosphorus Magnesium 1.60 L Direct Bilirubin AST ALT Alkaline Phosphatase Lactate Dehydrogenase Troponin T C-Reactive Protein Total Protein Albumin Prealbumin Triglycerides Cholesterol LDL Cholesterol Direct HDL Cholesterol Urine pH Urine WBC (Auto) Urine Creatinine Urine Total Protein Fluid Total Protein Vancomycin Trough Rheumatoid Factor Complement C4 Miscellaneous Test Crossmatch 12/11/16 12/11/16 12/11/16 11:15 17:59 23:48 WBC RBC Hgb Hct MCV MCH MCHC RDW Plt Count Lymph % (Auto) [place] % (Auto) Lymph # [place] # Baso # Seg Neutrophils % Seg Neuts % (Manual) Lymphocytes % (Manual) Monocytes % (Manual) Eosinophils % (Manual) Basophils % (Manual) Nucleated RBC % Seg Neutrophils # Seg Neutrophils # Man Lymphocytes # (Manual) Monocytes # (Manual) Eosinophils # (Manual) Basophils # (Manual) PT INR Fibrinogen dRVVT Confirm Interp Factor V Activity POC ABG pH POC ABG pCO2 POC ABG pO2 ABG pO2 ABG HCO3 ABG Base Excess ABG Hemoglobin Oxyhemoglobin Sodium Potassium Chloride Carbon Dioxide BUN Creatinine Glucose POC Glucose 188 H 106 H 119 H Lactic Acid Calcium Phosphorus Magnesium Direct Bilirubin AST ALT Alkaline Phosphatase Lactate Dehydrogenase Troponin T C-Reactive Protein Total Protein Albumin Prealbumin Triglycerides Cholesterol LDL Cholesterol Direct HDL Cholesterol Urine pH Urine WBC (Auto) Urine Creatinine Urine Total Protein Fluid Total Protein Vancomycin Trough Rheumatoid Factor Complement C4 Miscellaneous Test Crossmatch 12/12/16 12/12/16 12/12/16 05:00 06:01 12:20 WBC 16.7 H RBC 2.87 L Hgb 8.0 L Hct 24.2 L MCV MCH MCHC RDW 17.6 H Plt Count Lymph % (Auto) [place] % (Auto) Lymph # [place] # 1.2 H Baso # Seg Neutrophils % 75.3 H Seg Neuts % (Manual) Lymphocytes % (Manual) Monocytes % (Manual) Eosinophils % (Manual) Basophils % (Manual) Nucleated RBC % Seg Neutrophils # 12.6 H Seg Neutrophils # Man Lymphocytes # (Manual) Monocytes # (Manual) Eosinophils # (Manual) Basophils # (Manual) PT INR Fibrinogen dRVVT Confirm Interp Factor V Activity POC ABG pH POC ABG pCO2 POC ABG pO2 ABG pO2 ABG HCO3 ABG Base Excess ABG Hemoglobin Oxyhemoglobin Sodium Potassium Chloride Carbon Dioxide BUN Creatinine Glucose POC Glucose 134 H 149 H Lactic Acid Calcium Phosphorus Magnesium Direct Bilirubin AST ALT Alkaline Phosphatase Lactate Dehydrogenase Troponin T C-Reactive Protein Total Protein Albumin Prealbumin Triglycerides Cholesterol LDL Cholesterol Direct HDL Cholesterol Urine pH Urine WBC (Auto) Urine Creatinine Urine Total Protein Fluid Total Protein Vancomycin Trough Rheumatoid Factor Complement C4 Miscellaneous Test Crossmatch 12/12/16 12/12/16 12/12/16 17:38 23:01 Unknown WBC RBC Hgb Hct MCV MCH MCHC RDW Plt Count Lymph % (Auto) [place] % (Auto) Lymph # [place] # Baso # Seg Neutrophils % Seg Neuts % (Manual) Lymphocytes % (Manual) Monocytes % (Manual) Eosinophils % (Manual) Basophils % (Manual) Nucleated RBC % Seg Neutrophils # Seg Neutrophils # Man Lymphocytes # (Manual) Monocytes # (Manual) Eosinophils # (Manual) Basophils # (Manual) PT INR Fibrinogen dRVVT Confirm Interp Factor V Activity POC ABG pH POC ABG pCO2 POC ABG pO2 ABG pO2 ABG HCO3 ABG Base Excess ABG Hemoglobin Oxyhemoglobin Sodium Potassium Chloride Carbon Dioxide BUN 60 H Creatinine 1.3 H Glucose 126 H POC Glucose 127 H 144 H Lactic Acid Calcium Phosphorus Magnesium Direct Bilirubin AST ALT Alkaline Phosphatase Lactate Dehydrogenase Troponin T C-Reactive Protein Total Protein Albumin Prealbumin Triglycerides Cholesterol LDL Cholesterol Direct HDL Cholesterol Urine pH Urine WBC (Auto) Urine Creatinine Urine Total Protein Fluid Total Protein Vancomycin Trough Rheumatoid Factor Complement C4 Miscellaneous Test Crossmatch 12/13/16 12/13/16 12/13/16 04:00 04:00 05:19 WBC 18.7 H RBC 2.89 L Hgb 8.3 L Hct 24.6 L MCV MCH MCHC RDW 17.5 H Plt Count Lymph % (Auto) [place] % (Auto) Lymph # [place] # 1.3 H Baso # Seg Neutrophils % 71.5 H Seg Neuts % (Manual) Lymphocytes % (Manual) Monocytes % (Manual) Eosinophils % (Manual) Basophils % (Manual) Nucleated RBC % Seg Neutrophils # 13.4 H Seg Neutrophils # Man Lymphocytes # (Manual) Monocytes # (Manual) Eosinophils # (Manual) Basophils # (Manual) PT INR Fibrinogen dRVVT Confirm Interp Factor V Activity POC ABG pH POC ABG pCO2 POC ABG pO2 ABG pO2 ABG HCO3 ABG Base Excess ABG Hemoglobin Oxyhemoglobin Sodium Potassium Chloride Carbon Dioxide BUN 73 H Creatinine 1.5 H Glucose 141 H POC Glucose 171 H Lactic Acid Calcium Phosphorus Magnesium Direct Bilirubin AST ALT Alkaline Phosphatase Lactate Dehydrogenase Troponin T C-Reactive Protein Total Protein Albumin Prealbumin Triglycerides Cholesterol LDL Cholesterol Direct HDL Cholesterol Urine pH Urine WBC (Auto) Urine Creatinine Urine Total Protein Fluid Total Protein Vancomycin Trough Rheumatoid Factor Complement C4 Miscellaneous Test Crossmatch 12/13/16 12/13/16 12/14/16 12:28 16:48 00:01 WBC RBC Hgb Hct MCV MCH MCHC RDW Plt Count Lymph % (Auto) [place] % (Auto) Lymph # [place] # Baso # Seg Neutrophils % Seg Neuts % (Manual) Lymphocytes % (Manual) Monocytes % (Manual) Eosinophils % (Manual) Basophils % (Manual) Nucleated RBC % Seg Neutrophils # Seg Neutrophils # Man Lymphocytes # (Manual) Monocytes # (Manual) Eosinophils # (Manual) Basophils # (Manual) PT INR Fibrinogen dRVVT Confirm Interp Factor V Activity POC ABG pH POC ABG pCO2 POC ABG pO2 ABG pO2 ABG HCO3 ABG Base Excess ABG Hemoglobin Oxyhemoglobin Sodium Potassium Chloride Carbon Dioxide BUN Creatinine Glucose POC Glucose 206 H 173 H 139 H Lactic Acid Calcium Phosphorus Magnesium Direct Bilirubin AST ALT Alkaline Phosphatase Lactate Dehydrogenase Troponin T C-Reactive Protein Total Protein Albumin Prealbumin Triglycerides Cholesterol LDL Cholesterol Direct HDL Cholesterol Urine pH Urine WBC (Auto) Urine Creatinine Urine Total Protein Fluid Total Protein Vancomycin Trough Rheumatoid Factor Complement C4 Miscellaneous Test Crossmatch 12/14/16 12/14/16 12/14/16 05:16 06:10 11:17 WBC RBC Hgb Hct MCV MCH MCHC RDW Plt Count Lymph % (Auto) [place] % (Auto) Lymph # [place] # Baso # Seg Neutrophils % Seg Neuts % (Manual) Lymphocytes % (Manual) Monocytes % (Manual) Eosinophils % (Manual) Basophils % (Manual) Nucleated RBC % Seg Neutrophils # Seg Neutrophils # Man Lymphocytes # (Manual) Monocytes # (Manual) Eosinophils # (Manual) Basophils # (Manual) PT INR Fibrinogen dRVVT Confirm Interp Factor V Activity POC ABG pH POC ABG pCO2 POC ABG pO2 ABG pO2 ABG HCO3 ABG Base Excess ABG Hemoglobin Oxyhemoglobin Sodium Potassium Chloride Carbon Dioxide BUN 57 H Creatinine 1.4 H Glucose 135 H POC Glucose 158 H 137 H Lactic Acid Calcium Phosphorus Magnesium Direct Bilirubin AST ALT Alkaline Phosphatase Lactate Dehydrogenase Troponin T C-Reactive Protein Total Protein Albumin Prealbumin Triglycerides Cholesterol LDL Cholesterol Direct HDL Cholesterol Urine pH Urine WBC (Auto) Urine Creatinine Urine Total Protein Fluid Total Protein Vancomycin Trough Rheumatoid Factor Complement C4 Miscellaneous Test Crossmatch 12/14/16 12/14/16 12/15/16 17:52 23:27 04:00 WBC RBC Hgb Hct MCV MCH MCHC RDW Plt Count Lymph % (Auto) [place] % (Auto) Lymph # [place] # Baso # Seg Neutrophils % Seg Neuts % (Manual) Lymphocytes % (Manual) Monocytes % (Manual) Eosinophils % (Manual) Basophils % (Manual) Nucleated RBC % Seg Neutrophils # Seg Neutrophils # Man Lymphocytes # (Manual) Monocytes # (Manual) Eosinophils # (Manual) Basophils # (Manual) PT INR Fibrinogen dRVVT Confirm Interp Factor V Activity POC ABG pH POC ABG pCO2 POC ABG pO2 ABG pO2 ABG HCO3 ABG Base Excess ABG Hemoglobin Oxyhemoglobin Sodium Potassium Chloride 97.9 L Carbon Dioxide BUN 75 H Creatinine 1.6 H Glucose 122 H POC Glucose 149 H 163 H Lactic Acid Calcium Phosphorus 5.20 H Magnesium Direct Bilirubin AST ALT Alkaline Phosphatase Lactate Dehydrogenase Troponin T C-Reactive Protein Total Protein Albumin Prealbumin Triglycerides Cholesterol LDL Cholesterol Direct HDL Cholesterol Urine pH Urine WBC (Auto) Urine Creatinine Urine Total Protein Fluid Total Protein Vancomycin Trough Rheumatoid Factor Complement C4 Miscellaneous Test Crossmatch 12/15/16 12/15/16 12/15/16 05:50 11:24 17:01 WBC RBC Hgb Hct MCV MCH MCHC RDW Plt Count Lymph % (Auto) [place] % (Auto) Lymph # [place] # Baso # Seg Neutrophils % Seg Neuts % (Manual) Lymphocytes % (Manual) Monocytes % (Manual) Eosinophils % (Manual) Basophils % (Manual) Nucleated RBC % Seg Neutrophils # Seg Neutrophils # Man Lymphocytes # (Manual) Monocytes # (Manual) Eosinophils # (Manual) Basophils # (Manual) PT INR Fibrinogen dRVVT Confirm Interp Factor V Activity POC ABG pH POC ABG pCO2 POC ABG pO2 ABG pO2 ABG HCO3 ABG Base Excess ABG Hemoglobin Oxyhemoglobin Sodium Potassium Chloride Carbon Dioxide BUN Creatinine Glucose POC Glucose 150 H 146 H 167 H Lactic Acid Calcium Phosphorus Magnesium Direct Bilirubin AST ALT Alkaline Phosphatase Lactate Dehydrogenase Troponin T C-Reactive Protein Total Protein Albumin Prealbumin Triglycerides Cholesterol LDL Cholesterol Direct HDL Cholesterol Urine pH Urine WBC (Auto) Urine Creatinine Urine Total Protein Fluid Total Protein Vancomycin Trough Rheumatoid Factor Complement C4 Miscellaneous Test Crossmatch 12/15/16 12/16/16 12/16/16 23:34 05:25 11:24 WBC RBC Hgb Hct MCV MCH MCHC RDW Plt Count Lymph % (Auto) [place] % (Auto) Lymph # [place] # Baso # Seg Neutrophils % Seg Neuts % (Manual) Lymphocytes % (Manual) Monocytes % (Manual) Eosinophils % (Manual) Basophils % (Manual) Nucleated RBC % Seg Neutrophils # Seg Neutrophils # Man Lymphocytes # (Manual) Monocytes # (Manual) Eosinophils # (Manual) Basophils # (Manual) PT INR Fibrinogen dRVVT Confirm Interp Factor V Activity POC ABG pH POC ABG pCO2 POC ABG pO2 ABG pO2 ABG HCO3 ABG Base Excess ABG Hemoglobin Oxyhemoglobin Sodium Potassium Chloride Carbon Dioxide BUN Creatinine Glucose POC Glucose 127 H 139 H 165 H Lactic Acid Calcium Phosphorus Magnesium Direct Bilirubin AST ALT Alkaline Phosphatase Lactate Dehydrogenase Troponin T C-Reactive Protein Total Protein Albumin Prealbumin Triglycerides Cholesterol LDL Cholesterol Direct HDL Cholesterol Urine pH Urine WBC (Auto) Urine Creatinine Urine Total Protein Fluid Total Protein Vancomycin Trough Rheumatoid Factor Complement C4 Miscellaneous Test Crossmatch 12/16/16 12/16/16 12/16/16 15:30 16:25 17:31 WBC 17.8 H RBC 2.38 L Hgb 6.4 L Hct 20.3 L MCV MCH 27 L MCHC RDW 17.4 H Plt Count Lymph % (Auto) [place] % (Auto) Lymph # [place] # Baso # Seg Neutrophils % Seg Neuts % (Manual) Lymphocytes % (Manual) Monocytes % (Manual) 10.0 H Eosinophils % (Manual) Basophils % (Manual) Nucleated RBC % Seg Neutrophils # Seg Neutrophils # Man 8.5 H Lymphocytes # (Manual) Monocytes # (Manual) 1.8 H Eosinophils # (Manual) Basophils # (Manual) PT INR Fibrinogen dRVVT Confirm Interp Factor V Activity POC ABG pH POC ABG pCO2 POC ABG pO2 ABG pO2 ABG HCO3 ABG Base Excess ABG Hemoglobin Oxyhemoglobin Sodium Potassium Chloride Carbon Dioxide BUN Creatinine Glucose POC Glucose 176 H Lactic Acid Calcium Phosphorus Magnesium Direct Bilirubin AST ALT Alkaline Phosphatase Lactate Dehydrogenase Troponin T C-Reactive Protein Total Protein Albumin Prealbumin Triglycerides Cholesterol LDL Cholesterol Direct HDL Cholesterol Urine pH Urine WBC (Auto) Urine Creatinine Urine Total Protein Fluid Total Protein Vancomycin Trough Rheumatoid Factor Complement C4 Miscellaneous Test Crossmatch See Detail 12/17/16 12/17/16 12/17/16 00:14 04:00 05:00 WBC 20.0 H RBC 2.99 L Hgb 8.5 L Hct 25.7 L MCV MCH MCHC RDW 17.2 H Plt Count Lymph % (Auto) [place] % (Auto) Lymph # [place] # Baso # Seg Neutrophils % Seg Neuts % (Manual) Lymphocytes % (Manual) Monocytes % (Manual) Eosinophils % (Manual) Basophils % (Manual) Nucleated RBC % Seg Neutrophils # Seg Neutrophils # Man Lymphocytes # (Manual) Monocytes # (Manual) Eosinophils # (Manual) Basophils # (Manual) PT INR Fibrinogen dRVVT Confirm Interp Factor V Activity POC ABG pH POC ABG pCO2 POC ABG pO2 ABG pO2 ABG HCO3 ABG Base Excess ABG Hemoglobin Oxyhemoglobin Sodium Potassium Chloride 97.7 L Carbon Dioxide BUN 73 H Creatinine 1.7 H Glucose 136 H POC Glucose 148 H Lactic Acid Calcium Phosphorus 2.20 L Magnesium 2.70 H Direct Bilirubin AST ALT Alkaline Phosphatase Lactate Dehydrogenase Troponin T C-Reactive Protein Total Protein Albumin Prealbumin Triglycerides Cholesterol LDL Cholesterol Direct HDL Cholesterol Urine pH Urine WBC (Auto) Urine Creatinine Urine Total Protein Fluid Total Protein Vancomycin Trough Rheumatoid Factor Complement C4 Miscellaneous Test Crossmatch 12/17/16 12/17/16 12/17/16 05:39 12:50 16:32 WBC RBC Hgb Hct MCV MCH MCHC RDW Plt Count Lymph % (Auto) [place] % (Auto) Lymph # [place] # Baso # Seg Neutrophils % Seg Neuts % (Manual) Lymphocytes % (Manual) Monocytes % (Manual) Eosinophils % (Manual) Basophils % (Manual) Nucleated RBC % Seg Neutrophils # Seg Neutrophils # Man Lymphocytes # (Manual) Monocytes # (Manual) Eosinophils # (Manual) Basophils # (Manual) PT INR Fibrinogen dRVVT Confirm Interp Factor V Activity POC ABG pH POC ABG pCO2 POC ABG pO2 ABG pO2 ABG HCO3 ABG Base Excess ABG Hemoglobin Oxyhemoglobin Sodium Potassium Chloride Carbon Dioxide BUN Creatinine Glucose POC Glucose 162 H 146 H 169 H Lactic Acid Calcium Phosphorus Magnesium Direct Bilirubin AST ALT Alkaline Phosphatase Lactate Dehydrogenase Troponin T C-Reactive Protein Total Protein Albumin Prealbumin Triglycerides Cholesterol LDL Cholesterol Direct HDL Cholesterol Urine pH Urine WBC (Auto) Urine Creatinine Urine Total Protein Fluid Total Protein Vancomycin Trough Rheumatoid Factor Complement C4 Miscellaneous Test Crossmatch 12/17/16 12/18/16 12/18/16 23:57 05:00 05:32 WBC RBC Hgb Hct MCV MCH MCHC RDW Plt Count Lymph % (Auto) [place] % (Auto) Lymph # [place] # Baso # Seg Neutrophils % Seg Neuts % (Manual) Lymphocytes % (Manual) Monocytes % (Manual) Eosinophils % (Manual) Basophils % (Manual) Nucleated RBC % Seg Neutrophils # Seg Neutrophils # Man Lymphocytes # (Manual) Monocytes # (Manual) Eosinophils # (Manual) Basophils # (Manual) PT INR Fibrinogen dRVVT Confirm Interp Factor V Activity POC ABG pH POC ABG pCO2 POC ABG pO2 ABG pO2 ABG HCO3 ABG Base Excess ABG Hemoglobin Oxyhemoglobin Sodium Potassium Chloride 97.0 L Carbon Dioxide BUN 63 H Creatinine 1.4 H Glucose 174 H POC Glucose 145 H 201 H Lactic Acid Calcium Phosphorus 1.70 L D Magnesium Direct Bilirubin AST ALT Alkaline Phosphatase 257 H Lactate Dehydrogenase Troponin T C-Reactive Protein Total Protein 5.9 L Albumin 1.8 L Prealbumin Triglycerides Cholesterol LDL Cholesterol Direct HDL Cholesterol Urine pH Urine WBC (Auto) Urine Creatinine Urine Total Protein Fluid Total Protein Vancomycin Trough Rheumatoid Factor Complement C4 Miscellaneous Test Crossmatch 12/18/16 12/18/16 12/18/16 11:43 16:52 23:52 WBC RBC Hgb Hct MCV MCH MCHC RDW Plt Count Lymph % (Auto) [place] % (Auto) Lymph # [place] # Baso # Seg Neutrophils % Seg Neuts % (Manual) Lymphocytes % (Manual) Monocytes % (Manual) Eosinophils % (Manual) Basophils % (Manual) Nucleated RBC % Seg Neutrophils # Seg Neutrophils # Man Lymphocytes # (Manual) Monocytes # (Manual) Eosinophils # (Manual) Basophils # (Manual) PT INR Fibrinogen dRVVT Confirm Interp Factor V Activity POC ABG pH POC ABG pCO2 POC ABG pO2 ABG pO2 ABG HCO3 ABG Base Excess ABG Hemoglobin Oxyhemoglobin Sodium Potassium Chloride Carbon Dioxide BUN Creatinine Glucose POC Glucose 177 H 110 H 162 H Lactic Acid Calcium Phosphorus Magnesium Direct Bilirubin AST ALT Alkaline Phosphatase Lactate Dehydrogenase Troponin T C-Reactive Protein Total Protein Albumin Prealbumin Triglycerides Cholesterol LDL Cholesterol Direct HDL Cholesterol Urine pH Urine WBC (Auto) Urine Creatinine Urine Total Protein Fluid Total Protein Vancomycin Trough Rheumatoid Factor Complement C4 Miscellaneous Test Crossmatch 12/19/16 12/19/16 12/19/16 05:02 05:24 09:30 WBC 20.1 H RBC 2.73 L Hgb 7.6 L Hct 23.6 L MCV MCH MCHC RDW 17.6 H Plt Count Lymph % (Auto) [place] % (Auto) Lymph # [place] # Baso # Seg Neutrophils % Seg Neuts % (Manual) Lymphocytes % (Manual) 13.0 L Monocytes % (Manual) Eosinophils % (Manual) Basophils % (Manual) Nucleated RBC % 1.0 H Seg Neutrophils # Seg Neutrophils # Man 12.9 H Lymphocytes # (Manual) Monocytes # (Manual) 1.4 H Eosinophils # (Manual) Basophils # (Manual) 0.2 H PT INR Fibrinogen dRVVT Confirm Interp Factor V Activity POC ABG pH POC ABG pCO2 POC ABG pO2 ABG pO2 ABG HCO3 ABG Base Excess ABG Hemoglobin Oxyhemoglobin Sodium Potassium Chloride 97.8 L Carbon Dioxide BUN 84 H Creatinine 1.6 H Glucose 133 H POC Glucose 134 H Lactic Acid Calcium Phosphorus Magnesium Direct Bilirubin AST ALT Alkaline Phosphatase Lactate Dehydrogenase Troponin T C-Reactive Protein Total Protein Albumin Prealbumin Triglycerides Cholesterol LDL Cholesterol Direct HDL Cholesterol Urine pH Urine WBC (Auto) Urine Creatinine Urine Total Protein Fluid Total Protein Vancomycin Trough Rheumatoid Factor Complement C4 Miscellaneous Test Crossmatch 12/19/16 12/19/16 12/19/16 09:36 11:12 18:29 WBC RBC Hgb Hct MCV MCH MCHC RDW Plt Count Lymph % (Auto) [place] % (Auto) Lymph # [place] # Baso # Seg Neutrophils % Seg Neuts % (Manual) Lymphocytes % (Manual) Monocytes % (Manual) Eosinophils % (Manual) Basophils % (Manual) Nucleated RBC % Seg Neutrophils # Seg Neutrophils # Man Lymphocytes # (Manual) Monocytes # (Manual) Eosinophils # (Manual) Basophils # (Manual) PT INR Fibrinogen dRVVT Confirm Interp Factor V Activity POC ABG pH 7.503 H POC ABG pCO2 30.1 L POC ABG pO2 ABG pO2 ABG HCO3 ABG Base Excess ABG Hemoglobin Oxyhemoglobin Sodium Potassium Chloride Carbon Dioxide BUN Creatinine Glucose POC Glucose 138 H 156 H Lactic Acid Calcium Phosphorus Magnesium Direct Bilirubin AST ALT Alkaline Phosphatase Lactate Dehydrogenase Troponin T C-Reactive Protein Total Protein Albumin Prealbumin Triglycerides Cholesterol LDL Cholesterol Direct HDL Cholesterol Urine pH Urine WBC (Auto) Urine Creatinine Urine Total Protein Fluid Total Protein Vancomycin Trough Rheumatoid Factor Complement C4 Miscellaneous Test Crossmatch 12/20/16 12/20/16 12/20/16 00:03 06:17 07:07 WBC RBC Hgb Hct MCV MCH MCHC RDW Plt Count Lymph % (Auto) [place] % (Auto) Lymph # [place] # Baso # Seg Neutrophils % Seg Neuts % (Manual) Lymphocytes % (Manual) Monocytes % (Manual) Eosinophils % (Manual) Basophils % (Manual) Nucleated RBC % Seg Neutrophils # Seg Neutrophils # Man Lymphocytes # (Manual) Monocytes # (Manual) Eosinophils # (Manual) Basophils # (Manual) PT INR Fibrinogen dRVVT Confirm Interp Factor V Activity POC ABG pH POC ABG pCO2 POC ABG pO2 ABG pO2 ABG HCO3 ABG Base Excess ABG Hemoglobin Oxyhemoglobin Sodium Potassium Chloride 97.1 L Carbon Dioxide 20 L BUN 97 H Creatinine 1.8 H Glucose 153 H POC Glucose 152 H 175 H Lactic Acid Calcium Phosphorus Magnesium Direct Bilirubin AST ALT Alkaline Phosphatase Lactate Dehydrogenase Troponin T C-Reactive Protein Total Protein Albumin Prealbumin Triglycerides Cholesterol LDL Cholesterol Direct HDL Cholesterol Urine pH Urine WBC (Auto) Urine Creatinine Urine Total Protein Fluid Total Protein Vancomycin Trough Rheumatoid Factor Complement C4 Miscellaneous Test Crossmatch 12/20/16 12/20/16 12/20/16 12:00 17:42 23:53 WBC RBC Hgb Hct MCV MCH MCHC RDW Plt Count Lymph % (Auto) [place] % (Auto) Lymph # [place] # Baso # Seg Neutrophils % Seg Neuts % (Manual) Lymphocytes % (Manual) Monocytes % (Manual) Eosinophils % (Manual) Basophils % (Manual) Nucleated RBC % Seg Neutrophils # Seg Neutrophils # Man Lymphocytes # (Manual) Monocytes # (Manual) Eosinophils # (Manual) Basophils # (Manual) PT INR Fibrinogen dRVVT Confirm Interp Factor V Activity POC ABG pH POC ABG pCO2 POC ABG pO2 ABG pO2 ABG HCO3 ABG Base Excess ABG Hemoglobin Oxyhemoglobin Sodium Potassium Chloride Carbon Dioxide BUN Creatinine Glucose POC Glucose 141 H 156 H 132 H Lactic Acid Calcium Phosphorus Magnesium Direct Bilirubin AST ALT Alkaline Phosphatase Lactate Dehydrogenase Troponin T C-Reactive Protein Total Protein Albumin Prealbumin Triglycerides Cholesterol LDL Cholesterol Direct HDL Cholesterol Urine pH Urine WBC (Auto) Urine Creatinine Urine Total Protein Fluid Total Protein Vancomycin Trough Rheumatoid Factor Complement C4 Miscellaneous Test Crossmatch 12/21/16 12/21/16 12/21/16 05:49 08:50 12:19 WBC RBC Hgb Hct MCV MCH MCHC RDW Plt Count Lymph % (Auto) [place] % (Auto) Lymph # [place] # Baso # Seg Neutrophils % Seg Neuts % (Manual) Lymphocytes % (Manual) Monocytes % (Manual) Eosinophils % (Manual) Basophils % (Manual) Nucleated RBC % Seg Neutrophils # Seg Neutrophils # Man Lymphocytes # (Manual) Monocytes # (Manual) Eosinophils # (Manual) Basophils # (Manual) PT INR Fibrinogen dRVVT Confirm Interp Factor V Activity POC ABG pH POC ABG pCO2 POC ABG pO2 ABG pO2 ABG HCO3 ABG Base Excess ABG Hemoglobin Oxyhemoglobin Sodium Potassium 5.2 H D Chloride Carbon Dioxide BUN 63 H Creatinine Glucose 122 H POC Glucose 132 H 136 H Lactic Acid Calcium 8.3 L Phosphorus Magnesium Direct Bilirubin AST ALT Alkaline Phosphatase Lactate Dehydrogenase Troponin T C-Reactive Protein Total Protein Albumin Prealbumin Triglycerides Cholesterol LDL Cholesterol Direct HDL Cholesterol Urine pH Urine WBC (Auto) Urine Creatinine Urine Total Protein Fluid Total Protein Vancomycin Trough Rheumatoid Factor Complement C4 Miscellaneous Test Crossmatch 12/21/16 12/21/16 12/22/16 17:22 23:58 05:49 WBC RBC Hgb Hct MCV MCH MCHC RDW Plt Count Lymph % (Auto) [place] % (Auto) Lymph # [place] # Baso # Seg Neutrophils % Seg Neuts % (Manual) Lymphocytes % (Manual) Monocytes % (Manual) Eosinophils % (Manual) Basophils % (Manual) Nucleated RBC % Seg Neutrophils # Seg Neutrophils # Man Lymphocytes # (Manual) Monocytes # (Manual) Eosinophils # (Manual) Basophils # (Manual) PT INR Fibrinogen dRVVT Confirm Interp Factor V Activity POC ABG pH POC ABG pCO2 POC ABG pO2 ABG pO2 ABG HCO3 ABG Base Excess ABG Hemoglobin Oxyhemoglobin Sodium Potassium Chloride Carbon Dioxide BUN Creatinine Glucose POC Glucose 135 H 149 H 140 H Lactic Acid Calcium Phosphorus Magnesium Direct Bilirubin AST ALT Alkaline Phosphatase Lactate Dehydrogenase Troponin T C-Reactive Protein Total Protein Albumin Prealbumin Triglycerides Cholesterol LDL Cholesterol Direct HDL Cholesterol Urine pH Urine WBC (Auto) Urine Creatinine Urine Total Protein Fluid Total Protein Vancomycin Trough Rheumatoid Factor Complement C4 Miscellaneous Test Crossmatch 12/22/16 12/22/16 12/22/16 06:10 11:17 17:31 WBC RBC Hgb Hct MCV MCH MCHC RDW Plt Count Lymph % (Auto) [place] % (Auto) Lymph # [place] # Baso # Seg Neutrophils % Seg Neuts % (Manual) Lymphocytes % (Manual) Monocytes % (Manual) Eosinophils % (Manual) Basophils % (Manual) Nucleated RBC % Seg Neutrophils # Seg Neutrophils # Man Lymphocytes # (Manual) Monocytes # (Manual) Eosinophils # (Manual) Basophils # (Manual) PT INR Fibrinogen dRVVT Confirm Interp Factor V Activity POC ABG pH POC ABG pCO2 POC ABG pO2 ABG pO2 ABG HCO3 ABG Base Excess ABG Hemoglobin Oxyhemoglobin Sodium Potassium Chloride Carbon Dioxide BUN 76 H Creatinine 1.5 H Glucose 241 H POC Glucose 193 H 148 H Lactic Acid Calcium Phosphorus Magnesium Direct Bilirubin AST ALT Alkaline Phosphatase Lactate Dehydrogenase Troponin T C-Reactive Protein Total Protein Albumin Prealbumin Triglycerides Cholesterol LDL Cholesterol Direct HDL Cholesterol Urine pH Urine WBC (Auto) Urine Creatinine Urine Total Protein Fluid Total Protein Vancomycin Trough Rheumatoid Factor Complement C4 Miscellaneous Test Crossmatch 12/22/16 12/23/16 12/23/16 23:58 05:00 05:26 WBC RBC Hgb Hct MCV MCH MCHC RDW Plt Count Lymph % (Auto) [place] % (Auto) Lymph # [place] # Baso # Seg Neutrophils % Seg Neuts % (Manual) Lymphocytes % (Manual) Monocytes % (Manual) Eosinophils % (Manual) Basophils % (Manual) Nucleated RBC % Seg Neutrophils # Seg Neutrophils # Man Lymphocytes # (Manual) Monocytes # (Manual) Eosinophils # (Manual) Basophils # (Manual) PT INR Fibrinogen dRVVT Confirm Interp Factor V Activity POC ABG pH POC ABG pCO2 POC ABG pO2 ABG pO2 ABG HCO3 ABG Base Excess ABG Hemoglobin Oxyhemoglobin Sodium Potassium Chloride Carbon Dioxide BUN 49 H Creatinine Glucose 143 H POC Glucose 165 H 154 H Lactic Acid Calcium 8.2 L Phosphorus Magnesium 1.60 L Direct Bilirubin AST ALT Alkaline Phosphatase Lactate Dehydrogenase Troponin T C-Reactive Protein Total Protein Albumin Prealbumin Triglycerides Cholesterol LDL Cholesterol Direct HDL Cholesterol Urine pH Urine WBC (Auto) Urine Creatinine Urine Total Protein Fluid Total Protein Vancomycin Trough Rheumatoid Factor Complement C4 Miscellaneous Test Crossmatch 12/23/16 12/23/16 12/24/16 12:35 17:01 00:01 WBC RBC Hgb Hct MCV MCH MCHC RDW Plt Count Lymph % (Auto) [place] % (Auto) Lymph # [place] # Baso # Seg Neutrophils % Seg Neuts % (Manual) Lymphocytes % (Manual) Monocytes % (Manual) Eosinophils % (Manual) Basophils % (Manual) Nucleated RBC % Seg Neutrophils # Seg Neutrophils # Man Lymphocytes # (Manual) Monocytes # (Manual) Eosinophils # (Manual) Basophils # (Manual) PT INR Fibrinogen dRVVT Confirm Interp Factor V Activity POC ABG pH POC ABG pCO2 POC ABG pO2 ABG pO2 ABG HCO3 ABG Base Excess ABG Hemoglobin Oxyhemoglobin Sodium Potassium Chloride Carbon Dioxide BUN Creatinine Glucose POC Glucose 164 H 149 H 135 H Lactic Acid Calcium Phosphorus Magnesium Direct Bilirubin AST ALT Alkaline Phosphatase Lactate Dehydrogenase Troponin T C-Reactive Protein Total Protein Albumin Prealbumin Triglycerides Cholesterol LDL Cholesterol Direct HDL Cholesterol Urine pH Urine WBC (Auto) Urine Creatinine Urine Total Protein Fluid Total Protein Vancomycin Trough Rheumatoid Factor Complement C4 Miscellaneous Test Crossmatch 12/24/16 12/24/16 12/24/16 05:41 07:01 11:38 WBC RBC Hgb Hct MCV MCH MCHC RDW Plt Count Lymph % (Auto) [place] % (Auto) Lymph # [place] # Baso # Seg Neutrophils % Seg Neuts % (Manual) Lymphocytes % (Manual) Monocytes % (Manual) Eosinophils % (Manual) Basophils % (Manual) Nucleated RBC % Seg Neutrophils # Seg Neutrophils # Man Lymphocytes # (Manual) Monocytes # (Manual) Eosinophils # (Manual) Basophils # (Manual) PT INR Fibrinogen dRVVT Confirm Interp Factor V Activity POC ABG pH POC ABG pCO2 POC ABG pO2 ABG pO2 ABG HCO3 ABG Base Excess ABG Hemoglobin Oxyhemoglobin Sodium Potassium Chloride Carbon Dioxide BUN 72 H Creatinine 1.3 H Glucose 130 H POC Glucose 132 H 156 H Lactic Acid Calcium 8.2 L Phosphorus Magnesium Direct Bilirubin AST ALT Alkaline Phosphatase Lactate Dehydrogenase Troponin T C-Reactive Protein Total Protein Albumin Prealbumin Triglycerides Cholesterol LDL Cholesterol Direct HDL Cholesterol Urine pH Urine WBC (Auto) Urine Creatinine Urine Total Protein Fluid Total Protein Vancomycin Trough Rheumatoid Factor Complement C4 Miscellaneous Test Crossmatch 12/24/16 12/25/16 12/25/16 17:53 00:23 05:45 WBC RBC Hgb Hct MCV MCH MCHC RDW Plt Count Lymph % (Auto) [place] % (Auto) Lymph # [place] # Baso # Seg Neutrophils % Seg Neuts % (Manual) Lymphocytes % (Manual) Monocytes % (Manual) Eosinophils % (Manual) Basophils % (Manual) Nucleated RBC % Seg Neutrophils # Seg Neutrophils # Man Lymphocytes # (Manual) Monocytes # (Manual) Eosinophils # (Manual) Basophils # (Manual) PT INR Fibrinogen dRVVT Confirm Interp Factor V Activity POC ABG pH POC ABG pCO2 POC ABG pO2 ABG pO2 ABG HCO3 ABG Base Excess ABG Hemoglobin Oxyhemoglobin Sodium 146 H Potassium Chloride Carbon Dioxide BUN 51 H Creatinine Glucose 109 H POC Glucose 169 H 117 H Lactic Acid Calcium Phosphorus Magnesium Direct Bilirubin AST ALT Alkaline Phosphatase Lactate Dehydrogenase Troponin T C-Reactive Protein Total Protein Albumin Prealbumin Triglycerides Cholesterol LDL Cholesterol Direct HDL Cholesterol Urine pH Urine WBC (Auto) Urine Creatinine Urine Total Protein Fluid Total Protein Vancomycin Trough Rheumatoid Factor Complement C4 Miscellaneous Test Crossmatch 12/25/16 12/25/16 12/25/16 06:43 11:29 17:14 WBC RBC Hgb Hct MCV MCH MCHC RDW Plt Count Lymph % (Auto) [place] % (Auto) Lymph # [place] # Baso # Seg Neutrophils % Seg Neuts % (Manual) Lymphocytes % (Manual) Monocytes % (Manual) Eosinophils % (Manual) Basophils % (Manual) Nucleated RBC % Seg Neutrophils # Seg Neutrophils # Man Lymphocytes # (Manual) Monocytes # (Manual) Eosinophils # (Manual) Basophils # (Manual) PT INR Fibrinogen dRVVT Confirm Interp Factor V Activity POC ABG pH POC ABG pCO2 POC ABG pO2 ABG pO2 ABG HCO3 ABG Base Excess ABG Hemoglobin Oxyhemoglobin Sodium Potassium Chloride Carbon Dioxide BUN Creatinine Glucose POC Glucose 117 H 128 H 120 H Lactic Acid Calcium Phosphorus Magnesium Direct Bilirubin AST ALT Alkaline Phosphatase Lactate Dehydrogenase Troponin T C-Reactive Protein Total Protein Albumin Prealbumin Triglycerides Cholesterol LDL Cholesterol Direct HDL Cholesterol Urine pH Urine WBC (Auto) Urine Creatinine Urine Total Protein Fluid Total Protein Vancomycin Trough Rheumatoid Factor Complement C4 Miscellaneous Test Crossmatch 12/25/16 12/26/16 12/26/16 23:54 05:40 05:50 WBC 16.2 H RBC 2.32 L Hgb 6.2 L Hct 20.1 L MCV MCH 27 L MCHC RDW 18.6 H Plt Count Lymph % (Auto) [place] % (Auto) Lymph # [place] # Baso # Seg Neutrophils % Seg Neuts % (Manual) Lymphocytes % (Manual) Monocytes % (Manual) Eosinophils % (Manual) Basophils % (Manual) Nucleated RBC % Seg Neutrophils # Seg Neutrophils # Man Lymphocytes # (Manual) Monocytes # (Manual) Eosinophils # (Manual) Basophils # (Manual) PT INR Fibrinogen dRVVT Confirm Interp Factor V Activity POC ABG pH POC ABG pCO2 POC ABG pO2 ABG pO2 ABG HCO3 ABG Base Excess ABG Hemoglobin Oxyhemoglobin Sodium Potassium Chloride Carbon Dioxide BUN Creatinine Glucose POC Glucose 126 H 132 H Lactic Acid Calcium Phosphorus Magnesium Direct Bilirubin AST ALT Alkaline Phosphatase Lactate Dehydrogenase Troponin T C-Reactive Protein Total Protein Albumin Prealbumin Triglycerides Cholesterol LDL Cholesterol Direct HDL Cholesterol Urine pH Urine WBC (Auto) Urine Creatinine Urine Total Protein Fluid Total Protein Vancomycin Trough Rheumatoid Factor Complement C4 Miscellaneous Test Crossmatch 12/26/16 12/26/16 12/26/16 05:50 12:17 12:33 WBC RBC Hgb Hct MCV MCH MCHC RDW Plt Count Lymph % (Auto) [place] % (Auto) Lymph # [place] # Baso # Seg Neutrophils % Seg Neuts % (Manual) Lymphocytes % (Manual) Monocytes % (Manual) Eosinophils % (Manual) Basophils % (Manual) Nucleated RBC % Seg Neutrophils # Seg Neutrophils # Man Lymphocytes # (Manual) Monocytes # (Manual) Eosinophils # (Manual) Basophils # (Manual) PT INR Fibrinogen dRVVT Confirm Interp Factor V Activity POC ABG pH POC ABG pCO2 POC ABG pO2 ABG pO2 ABG HCO3 ABG Base Excess ABG Hemoglobin Oxyhemoglobin Sodium Potassium Chloride Carbon Dioxide BUN 73 H Creatinine 1.3 H Glucose 113 H POC Glucose 117 H Lactic Acid Calcium Phosphorus Magnesium Direct Bilirubin AST ALT Alkaline Phosphatase Lactate Dehydrogenase Troponin T C-Reactive Protein Total Protein Albumin Prealbumin Triglycerides Cholesterol LDL Cholesterol Direct HDL Cholesterol Urine pH Urine WBC (Auto) Urine Creatinine Urine Total Protein Fluid Total Protein Vancomycin Trough Rheumatoid Factor Complement C4 Miscellaneous Test Crossmatch See Detail 12/26/16 12/26/16 12/27/16 20:00 23:21 05:00 WBC RBC Hgb 8.4 L Hct 26.3 L D MCV MCH MCHC RDW Plt Count Lymph % (Auto) [place] % (Auto) Lymph # [place] # Baso # Seg Neutrophils % Seg Neuts % (Manual) Lymphocytes % (Manual) Monocytes % (Manual) Eosinophils % (Manual) Basophils % (Manual) Nucleated RBC % Seg Neutrophils # Seg Neutrophils # Man Lymphocytes # (Manual) Monocytes # (Manual) Eosinophils # (Manual) Basophils # (Manual) PT INR Fibrinogen dRVVT Confirm Interp Factor V Activity POC ABG pH POC ABG pCO2 POC ABG pO2 ABG pO2 ABG HCO3 ABG Base Excess ABG Hemoglobin Oxyhemoglobin Sodium Potassium Chloride Carbon Dioxide BUN 85 H Creatinine 1.6 H Glucose 118 H POC Glucose 124 H Lactic Acid Calcium Phosphorus 4.80 H Magnesium Direct Bilirubin AST ALT Alkaline Phosphatase Lactate Dehydrogenase Troponin T C-Reactive Protein Total Protein Albumin Prealbumin Triglycerides Cholesterol LDL Cholesterol Direct HDL Cholesterol Urine pH Urine WBC (Auto) Urine Creatinine Urine Total Protein Fluid Total Protein Vancomycin Trough Rheumatoid Factor Complement C4 Miscellaneous Test Crossmatch 12/27/16 12/27/16 12/27/16 05:00 05:35 12:24 WBC RBC Hgb 7.6 L Hct 22.8 L MCV MCH MCHC RDW Plt Count Lymph % (Auto) [place] % (Auto) Lymph # [place] # Baso # Seg Neutrophils % Seg Neuts % (Manual) Lymphocytes % (Manual) Monocytes % (Manual) Eosinophils % (Manual) Basophils % (Manual) Nucleated RBC % Seg Neutrophils # Seg Neutrophils # Man Lymphocytes # (Manual) Monocytes # (Manual) Eosinophils # (Manual) Basophils # (Manual) PT INR Fibrinogen dRVVT Confirm Interp Factor V Activity POC ABG pH POC ABG pCO2 POC ABG pO2 ABG pO2 ABG HCO3 ABG Base Excess ABG Hemoglobin Oxyhemoglobin Sodium Potassium Chloride Carbon Dioxide BUN Creatinine Glucose POC Glucose 115 H 131 H Lactic Acid Calcium Phosphorus Magnesium Direct Bilirubin AST ALT Alkaline Phosphatase Lactate Dehydrogenase Troponin T C-Reactive Protein Total Protein Albumin Prealbumin Triglycerides Cholesterol LDL Cholesterol Direct HDL Cholesterol Urine pH Urine WBC (Auto) Urine Creatinine Urine Total Protein Fluid Total Protein Vancomycin Trough Rheumatoid Factor Complement C4 Miscellaneous Test Crossmatch 12/27/16 12/28/16 12/28/16 17:16 00:18 04:00 WBC RBC Hgb Hct MCV MCH MCHC RDW Plt Count Lymph % (Auto) [place] % (Auto) Lymph # [place] # Baso # Seg Neutrophils % Seg Neuts % (Manual) Lymphocytes % (Manual) Monocytes % (Manual) Eosinophils % (Manual) Basophils % (Manual) Nucleated RBC % Seg Neutrophils # Seg Neutrophils # Man Lymphocytes # (Manual) Monocytes # (Manual) Eosinophils # (Manual) Basophils # (Manual) PT INR Fibrinogen dRVVT Confirm Interp Factor V Activity POC ABG pH POC ABG pCO2 POC ABG pO2 ABG pO2 ABG HCO3 ABG Base Excess ABG Hemoglobin Oxyhemoglobin Sodium Potassium 3.5 L Chloride Carbon Dioxide BUN 57 H Creatinine Glucose 118 H POC Glucose 136 H 120 H Lactic Acid Calcium 8.3 L Phosphorus Magnesium Direct Bilirubin AST ALT Alkaline Phosphatase Lactate Dehydrogenase Troponin T C-Reactive Protein Total Protein Albumin Prealbumin Triglycerides Cholesterol LDL Cholesterol Direct HDL Cholesterol Urine pH Urine WBC (Auto) Urine Creatinine Urine Total Protein Fluid Total Protein Vancomycin Trough Rheumatoid Factor Complement C4 Miscellaneous Test Crossmatch 12/28/16 12/28/16 12/28/16 04:00 05:11 08:30 WBC 17.0 H RBC 2.58 L Hgb 7.1 L Hct 22.0 L MCV MCH MCHC RDW 17.6 H Plt Count Lymph % (Auto) 12.2 L [place] % (Auto) Lymph # [place] # 1.1 H Baso # Seg Neutrophils % 80.5 H Seg Neuts % (Manual) Lymphocytes % (Manual) Monocytes % (Manual) Eosinophils % (Manual) Basophils % (Manual) Nucleated RBC % Seg Neutrophils # 13.7 H Seg Neutrophils # Man Lymphocytes # (Manual) Monocytes # (Manual) Eosinophils # (Manual) Basophils # (Manual) PT 16.1 H INR 1.23 H Fibrinogen dRVVT Confirm Interp Factor V Activity POC ABG pH POC ABG pCO2 POC ABG pO2 ABG pO2 ABG HCO3 ABG Base Excess ABG Hemoglobin Oxyhemoglobin Sodium Potassium Chloride Carbon Dioxide BUN Creatinine Glucose POC Glucose 122 H Lactic Acid Calcium Phosphorus Magnesium Direct Bilirubin AST ALT Alkaline Phosphatase Lactate Dehydrogenase Troponin T C-Reactive Protein Total Protein Albumin Prealbumin Triglycerides Cholesterol LDL Cholesterol Direct HDL Cholesterol Urine pH Urine WBC (Auto) Urine Creatinine Urine Total Protein Fluid Total Protein Vancomycin Trough Rheumatoid Factor Complement C4 Miscellaneous Test Crossmatch 12/28/16 12/28/16 12/28/16 12:27 16:32 23:46 WBC RBC Hgb Hct MCV MCH MCHC RDW Plt Count Lymph % (Auto) [place] % (Auto) Lymph # [place] # Baso # Seg Neutrophils % Seg Neuts % (Manual) Lymphocytes % (Manual) Monocytes % (Manual) Eosinophils % (Manual) Basophils % (Manual) Nucleated RBC % Seg Neutrophils # Seg Neutrophils # Man Lymphocytes # (Manual) Monocytes # (Manual) Eosinophils # (Manual) Basophils # (Manual) PT INR Fibrinogen dRVVT Confirm Interp Factor V Activity POC ABG pH POC ABG pCO2 POC ABG pO2 ABG pO2 ABG HCO3 ABG Base Excess ABG Hemoglobin Oxyhemoglobin Sodium Potassium Chloride Carbon Dioxide BUN Creatinine Glucose POC Glucose 127 H 117 H 108 H Lactic Acid Calcium Phosphorus Magnesium Direct Bilirubin AST ALT Alkaline Phosphatase Lactate Dehydrogenase Troponin T C-Reactive Protein Total Protein Albumin Prealbumin Triglycerides Cholesterol LDL Cholesterol Direct HDL Cholesterol Urine pH Urine WBC (Auto) Urine Creatinine Urine Total Protein Fluid Total Protein Vancomycin Trough Rheumatoid Factor Complement C4 Miscellaneous Test Crossmatch 12/29/16 12/29/16 12/29/16 05:15 05:15 05:32 WBC RBC Hgb Hct MCV MCH MCHC RDW Plt Count Lymph % (Auto) [place] % (Auto) Lymph # [place] # Baso # Seg Neutrophils % Seg Neuts % (Manual) Lymphocytes % (Manual) Monocytes % (Manual) Eosinophils % (Manual) Basophils % (Manual) Nucleated RBC % Seg Neutrophils # Seg Neutrophils # Man Lymphocytes # (Manual) Monocytes # (Manual) Eosinophils # (Manual) Basophils # (Manual) PT INR Fibrinogen dRVVT Confirm Interp Factor V Activity POC ABG pH POC ABG pCO2 POC ABG pO2 ABG pO2 ABG HCO3 ABG Base Excess ABG Hemoglobin Oxyhemoglobin Sodium Potassium Chloride Carbon Dioxide BUN 74 H Creatinine 1.6 H Glucose 111 H POC Glucose 123 H Lactic Acid Calcium Phosphorus Magnesium Direct Bilirubin AST ALT Alkaline Phosphatase Lactate Dehydrogenase Troponin T C-Reactive Protein Total Protein Albumin Prealbumin 0.110 L Triglycerides Cholesterol LDL Cholesterol Direct HDL Cholesterol Urine pH Urine WBC (Auto) Urine Creatinine Urine Total Protein Fluid Total Protein Vancomycin Trough Rheumatoid Factor Complement C4 Miscellaneous Test Crossmatch 12/29/16 12/29/16 12/29/16 11:43 13:45 14:00 WBC 13.8 H RBC 2.26 L Hgb 6.3 L Hct 20.4 L MCV MCH MCHC RDW 18.3 H Plt Count Lymph % (Auto) [place] % (Auto) Lymph # [place] # 0.9 H Baso # Seg Neutrophils % 78.6 H Seg Neuts % (Manual) Lymphocytes % (Manual) Monocytes % (Manual) Eosinophils % (Manual) Basophils % (Manual) Nucleated RBC % Seg Neutrophils # 10.8 H Seg Neutrophils # Man Lymphocytes # (Manual) Monocytes # (Manual) Eosinophils # (Manual) Basophils # (Manual) PT INR Fibrinogen dRVVT Confirm Interp Factor V Activity POC ABG pH POC ABG pCO2 POC ABG pO2 ABG pO2 ABG HCO3 ABG Base Excess ABG Hemoglobin Oxyhemoglobin Sodium Potassium Chloride Carbon Dioxide BUN Creatinine Glucose POC Glucose 133 H Lactic Acid Calcium Phosphorus Magnesium Direct Bilirubin AST ALT Alkaline Phosphatase Lactate Dehydrogenase Troponin T C-Reactive Protein Total Protein Albumin Prealbumin Triglycerides Cholesterol LDL Cholesterol Direct HDL Cholesterol Urine pH Urine WBC (Auto) Urine Creatinine Urine Total Protein Fluid Total Protein Vancomycin Trough Rheumatoid Factor Complement C4 Miscellaneous Test Crossmatch See Detail 12/29/16 12/29/16 12/29/16 17:03 23:15 23:22 WBC RBC Hgb 7.3 L Hct 22.3 L MCV MCH MCHC RDW Plt Count Lymph % (Auto) [place] % (Auto) Lymph # [place] # Baso # Seg Neutrophils % Seg Neuts % (Manual) Lymphocytes % (Manual) Monocytes % (Manual) Eosinophils % (Manual) Basophils % (Manual) Nucleated RBC % Seg Neutrophils # Seg Neutrophils # Man Lymphocytes # (Manual) Monocytes # (Manual) Eosinophils # (Manual) Basophils # (Manual) PT INR Fibrinogen dRVVT Confirm Interp Factor V Activity POC ABG pH POC ABG pCO2 POC ABG pO2 ABG pO2 ABG HCO3 ABG Base Excess ABG Hemoglobin Oxyhemoglobin Sodium Potassium Chloride Carbon Dioxide BUN Creatinine Glucose POC Glucose 139 H 120 H Lactic Acid Calcium Phosphorus Magnesium Direct Bilirubin AST ALT Alkaline Phosphatase Lactate Dehydrogenase Troponin T C-Reactive Protein Total Protein Albumin Prealbumin Triglycerides Cholesterol LDL Cholesterol Direct HDL Cholesterol Urine pH Urine WBC (Auto) Urine Creatinine Urine Total Protein Fluid Total Protein Vancomycin Trough Rheumatoid Factor Complement C4 Miscellaneous Test Crossmatch 12/30/16 12/30/16 12/30/16 04:20 04:20 05:43 WBC 15.6 H RBC 2.81 L Hgb 8.0 L Hct 24.0 L MCV MCH MCHC RDW 16.9 H Plt Count Lymph % (Auto) [place] % (Auto) Lymph # [place] # 1.0 H Baso # Seg Neutrophils % 76.2 H Seg Neuts % (Manual) Lymphocytes % (Manual) Monocytes % (Manual) Eosinophils % (Manual) Basophils % (Manual) Nucleated RBC % Seg Neutrophils # 11.9 H Seg Neutrophils # Man Lymphocytes # (Manual) Monocytes # (Manual) Eosinophils # (Manual) Basophils # (Manual) PT INR Fibrinogen dRVVT Confirm Interp Factor V Activity POC ABG pH POC ABG pCO2 POC ABG pO2 ABG pO2 ABG HCO3 ABG Base Excess ABG Hemoglobin Oxyhemoglobin Sodium Potassium Chloride Carbon Dioxide BUN 87 H Creatinine 1.8 H Glucose 119 H POC Glucose 115 H Lactic Acid Calcium Phosphorus Magnesium Direct Bilirubin AST ALT Alkaline Phosphatase Lactate Dehydrogenase Troponin T C-Reactive Protein Total Protein Albumin Prealbumin Triglycerides Cholesterol LDL Cholesterol Direct HDL Cholesterol Urine pH Urine WBC (Auto) Urine Creatinine Urine Total Protein Fluid Total Protein Vancomycin Trough Rheumatoid Factor Complement C4 Miscellaneous Test Crossmatch 12/30/16 12/30/16 12/31/16 17:27 23:21 04:00 WBC RBC Hgb Hct MCV MCH MCHC RDW Plt Count Lymph % (Auto) [place] % (Auto) Lymph # [place] # Baso # Seg Neutrophils % Seg Neuts % (Manual) Lymphocytes % (Manual) Monocytes % (Manual) Eosinophils % (Manual) Basophils % (Manual) Nucleated RBC % Seg Neutrophils # Seg Neutrophils # Man Lymphocytes # (Manual) Monocytes # (Manual) Eosinophils # (Manual) Basophils # (Manual) PT INR Fibrinogen dRVVT Confirm Interp Factor V Activity POC ABG pH POC ABG pCO2 POC ABG pO2 ABG pO2 ABG HCO3 ABG Base Excess ABG Hemoglobin Oxyhemoglobin Sodium Potassium Chloride Carbon Dioxide BUN 59 H Creatinine Glucose 298 H POC Glucose 144 H 125 H Lactic Acid Calcium Phosphorus Magnesium Direct Bilirubin AST ALT Alkaline Phosphatase Lactate Dehydrogenase Troponin T C-Reactive Protein Total Protein Albumin Prealbumin Triglycerides Cholesterol LDL Cholesterol Direct HDL Cholesterol Urine pH Urine WBC (Auto) Urine Creatinine Urine Total Protein Fluid Total Protein Vancomycin Trough Rheumatoid Factor Complement C4 Miscellaneous Test Crossmatch 12/31/16 12/31/1612/31/17 05:11 12:18 18:17 WBC RBC Hgb Hct MCV MCH MCHC RDW Plt Count Lymph % (Auto) [place] % (Auto) Lymph # [place] # Baso # Seg Neutrophils % Seg Neuts % (Manual) Lymphocytes % (Manual) Monocytes % (Manual) Eosinophils % (Manual) Basophils % (Manual) Nucleated RBC % Seg Neutrophils # Seg Neutrophils # Man Lymphocytes # (Manual) Monocytes # (Manual) Eosinophils # (Manual) Basophils # (Manual) PT INR Fibrinogen dRVVT Confirm Interp Factor V Activity POC ABG pH POC ABG pCO2 POC ABG pO2 ABG pO2 ABG HCO3 ABG Base Excess ABG Hemoglobin Oxyhemoglobin Sodium Potassium Chloride Carbon Dioxide BUN Creatinine Glucose POC Glucose 167 H 125 H 133 H Lactic Acid Calcium Phosphorus Magnesium Direct Bilirubin AST ALT Alkaline Phosphatase Lactate Dehydrogenase Troponin T C-Reactive Protein Total Protein Albumin Prealbumin Triglycerides Cholesterol LDL Cholesterol Direct HDL Cholesterol Urine pH Urine WBC (Auto) Urine Creatinine Urine Total Protein Fluid Total Protein Vancomycin Trough Rheumatoid Factor Complement C4 Miscellaneous Test Crossmatch 12/31/16 01/01/17 01/01/17 23:55 05:00 05:12 WBC RBC Hgb Hct MCV MCH MCHC RDW Plt Count Lymph % (Auto) [place] % (Auto) Lymph # [place] # Baso # Seg Neutrophils % Seg Neuts % (Manual) Lymphocytes % (Manual) Monocytes % (Manual) Eosinophils % (Manual) Basophils % (Manual) Nucleated RBC % Seg Neutrophils # Seg Neutrophils # Man Lymphocytes # (Manual) Monocytes # (Manual) Eosinophils # (Manual) Basophils # (Manual) PT INR Fibrinogen dRVVT Confirm Interp Factor V Activity POC ABG pH POC ABG pCO2 POC ABG pO2 ABG pO2 ABG HCO3 ABG Base Excess ABG Hemoglobin Oxyhemoglobin Sodium Potassium Chloride Carbon Dioxide BUN 76 H Creatinine 1.5 H Glucose 109 H POC Glucose 129 H 129 H Lactic Acid Calcium Phosphorus Magnesium Direct Bilirubin AST ALT Alkaline Phosphatase 536 H Lactate Dehydrogenase Troponin T C-Reactive Protein Total Protein Albumin 1.5 L Prealbumin Triglycerides Cholesterol LDL Cholesterol Direct HDL Cholesterol Urine pH Urine WBC (Auto) Urine Creatinine Urine Total Protein Fluid Total Protein Vancomycin Trough Rheumatoid Factor Complement C4 Miscellaneous Test Crossmatch 01/01/17 01/01/17 01/01/17 12:25 17:01 23:32 WBC RBC Hgb Hct MCV MCH MCHC RDW Plt Count Lymph % (Auto) [place] % (Auto) Lymph # [place] # Baso # Seg Neutrophils % Seg Neuts % (Manual) Lymphocytes % (Manual) Monocytes % (Manual) Eosinophils % (Manual) Basophils % (Manual) Nucleated RBC % Seg Neutrophils # Seg Neutrophils # Man Lymphocytes # (Manual) Monocytes # (Manual) Eosinophils # (Manual) Basophils # (Manual) PT INR Fibrinogen dRVVT Confirm Interp Factor V Activity POC ABG pH POC ABG pCO2 POC ABG pO2 ABG pO2 ABG HCO3 ABG Base Excess ABG Hemoglobin Oxyhemoglobin Sodium Potassium Chloride Carbon Dioxide BUN Creatinine Glucose POC Glucose 140 H 142 H 112 H Lactic Acid Calcium Phosphorus Magnesium Direct Bilirubin AST ALT Alkaline Phosphatase Lactate Dehydrogenase Troponin T C-Reactive Protein Total Protein Albumin Prealbumin Triglycerides Cholesterol LDL Cholesterol Direct HDL Cholesterol Urine pH Urine WBC (Auto) Urine Creatinine Urine Total Protein Fluid Total Protein Vancomycin Trough Rheumatoid Factor Complement C4 Miscellaneous Test Crossmatch 01/02/17 01/02/17 01/02/17 04:56 06:00 11:37 WBC RBC Hgb Hct MCV MCH MCHC RDW Plt Count Lymph % (Auto) [place] % (Auto) Lymph # [place] # Baso # Seg Neutrophils % Seg Neuts % (Manual) Lymphocytes % (Manual) Monocytes % (Manual) Eosinophils % (Manual) Basophils % (Manual) Nucleated RBC % Seg Neutrophils # Seg Neutrophils # Man Lymphocytes # (Manual) Monocytes # (Manual) Eosinophils # (Manual) Basophils # (Manual) PT INR Fibrinogen dRVVT Confirm Interp Factor V Activity POC ABG pH POC ABG pCO2 POC ABG pO2 ABG pO2 ABG HCO3 ABG Base Excess ABG Hemoglobin Oxyhemoglobin Sodium Potassium Chloride Carbon Dioxide BUN 88 H Creatinine 1.7 H Glucose 113 H POC Glucose 136 H 200 H Lactic Acid Calcium Phosphorus Magnesium Direct Bilirubin AST ALT Alkaline Phosphatase Lactate Dehydrogenase Troponin T C-Reactive Protein Total Protein Albumin Prealbumin Triglycerides Cholesterol LDL Cholesterol Direct HDL Cholesterol Urine pH Urine WBC (Auto) Urine Creatinine Urine Total Protein Fluid Total Protein Vancomycin Trough Rheumatoid Factor Complement C4 Miscellaneous Test Crossmatch 01/02/17 01/02/17 01/03/17 17:42 22:52 04:54 WBC RBC Hgb Hct MCV MCH MCHC RDW Plt Count Lymph % (Auto) [place] % (Auto) Lymph # [place] # Baso # Seg Neutrophils % Seg Neuts % (Manual) Lymphocytes % (Manual) Monocytes % (Manual) Eosinophils % (Manual) Basophils % (Manual) Nucleated RBC % Seg Neutrophils # Seg Neutrophils # Man Lymphocytes # (Manual) Monocytes # (Manual) Eosinophils # (Manual) Basophils # (Manual) PT INR Fibrinogen dRVVT Confirm Interp Factor V Activity POC ABG pH POC ABG pCO2 POC ABG pO2 ABG pO2 ABG HCO3 ABG Base Excess ABG Hemoglobin Oxyhemoglobin Sodium Potassium Chloride Carbon Dioxide BUN Creatinine Glucose POC Glucose 112 H 133 H 111 H Lactic Acid Calcium Phosphorus Magnesium Direct Bilirubin AST ALT Alkaline Phosphatase Lactate Dehydrogenase Troponin T C-Reactive Protein Total Protein Albumin Prealbumin Triglycerides Cholesterol LDL Cholesterol Direct HDL Cholesterol Urine pH Urine WBC (Auto) Urine Creatinine Urine Total Protein Fluid Total Protein Vancomycin Trough Rheumatoid Factor Complement C4 Miscellaneous Test Crossmatch 01/03/17 01/03/17 01/03/17 05:00 05:00 14:02 WBC 11.2 H RBC 2.56 L Hgb 7.2 L Hct 22.3 L MCV MCH MCHC RDW 17.3 H Plt Count Lymph % (Auto) [place] % (Auto) 10.0 H Lymph # [place] # 1.1 H Baso # Seg Neutrophils % 70.5 H Seg Neuts % (Manual) Lymphocytes % (Manual) Monocytes % (Manual) Eosinophils % (Manual) Basophils % (Manual) Nucleated RBC % Seg Neutrophils # 7.9 H Seg Neutrophils # Man Lymphocytes # (Manual) Monocytes # (Manual) Eosinophils # (Manual) Basophils # (Manual) PT INR Fibrinogen dRVVT Confirm Interp Factor V Activity POC ABG pH POC ABG pCO2 POC ABG pO2 ABG pO2 ABG HCO3 ABG Base Excess ABG Hemoglobin Oxyhemoglobin Sodium Potassium Chloride Carbon Dioxide BUN 60 H Creatinine 1.3 H Glucose 110 H POC Glucose 119 H Lactic Acid Calcium Phosphorus Magnesium Direct Bilirubin AST ALT Alkaline Phosphatase Lactate Dehydrogenase Troponin T C-Reactive Protein Total Protein Albumin Prealbumin Triglycerides Cholesterol LDL Cholesterol Direct HDL Cholesterol Urine pH Urine WBC (Auto) Urine Creatinine Urine Total Protein Fluid Total Protein Vancomycin Trough Rheumatoid Factor Complement C4 Miscellaneous Test Crossmatch 01/03/17 01/03/17 01/04/17 18:13 23:40 05:57 WBC RBC Hgb Hct MCV MCH MCHC RDW Plt Count Lymph % (Auto) [place] % (Auto) Lymph # [place] # Baso # Seg Neutrophils % Seg Neuts % (Manual) Lymphocytes % (Manual) Monocytes % (Manual) Eosinophils % (Manual) Basophils % (Manual) Nucleated RBC % Seg Neutrophils # Seg Neutrophils # Man Lymphocytes # (Manual) Monocytes # (Manual) Eosinophils # (Manual) Basophils # (Manual) PT INR Fibrinogen dRVVT Confirm Interp Factor V Activity POC ABG pH POC ABG pCO2 POC ABG pO2 ABG pO2 ABG HCO3 ABG Base Excess ABG Hemoglobin Oxyhemoglobin Sodium Potassium Chloride Carbon Dioxide BUN Creatinine Glucose POC Glucose 107 H 129 H 111 H Lactic Acid Calcium Phosphorus Magnesium Direct Bilirubin AST ALT Alkaline Phosphatase Lactate Dehydrogenase Troponin T C-Reactive Protein Total Protein Albumin Prealbumin Triglycerides Cholesterol LDL Cholesterol Direct HDL Cholesterol Urine pH Urine WBC (Auto) Urine Creatinine Urine Total Protein Fluid Total Protein Vancomycin Trough Rheumatoid Factor Complement C4 Miscellaneous Test Crossmatch Chest x-ray: pending Allied health notes reviewed: RT
[2017-01-04] MEDS: PROCRIT IV PRN (12:25)
[2017-01-04] MEDS: HEPARIN IV PRN (12:49)
--- NOTE | 2017-01-04 13:37 | Progress Note ---
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 * Atrial fibrillation w/ RVR * Enteric fistula * Acute hypoxic respiratory failure * Sacral decubitus ulcer s/p debridement, wound vac in place * s/p Cardiac arrest * Hx of GI bleed * Left renal artery stenosis * Anemia * Hx of hypertension * s/p Candidemia Plan: * Continue HD MWF * UF as tolerated * Adjust K bath with dialysis * Transfuse pRBC per primary team * Epogen 20k TIW * Dose medications for renal function * Avoid potential nephrotoxins * Rate control per cardiology * Vent management per pulm/CCM * Pressors prn for MAP>65 Subjective Date of service: 01/04/17 Principal diagnosis: Acute resp failure on MVS; S/P Acute CVA; Acute Encephalopathy; JUANITA Interval history: No acute events overnight. Objective - Vital Signs Vital signs: Vital Signs - 12hr 01/04/17 01/04/17 01/04/17 01:45 02:00 02:15 Temperature Pulse Rate 94 H 93 H 92 H Pulse Rate [ 92 H Anterior Bilateral Throughout] Pulse Rate [ From Monitor] Pulse Rate [ Left Dorsalis Pedis] Pulse Rate [ Left Radial] Pulse Rate [ Right Dorsalis Pedis] Pulse Rate [ Right Radial] Respiratory 20 20 19 Rate Respiratory 20 Rate [Anterior Bilateral Throughout] Blood Pressure 143/87 149/84 135/84 O2 Sat by Pulse 100 100 100 Oximetry O2 Sat by Pulse Oximetry [ Anterior Bilateral Throughout] O2 Sat by Pulse Oximetry [ Assessment] 01/04/17 01/04/17 01/04/17 02:30 02:45 03:00 Temperature Pulse Rate 94 H 94 H 95 H Pulse Rate [ Anterior Bilateral Throughout] Pulse Rate [ From Monitor] Pulse Rate [ Left Dorsalis Pedis] Pulse Rate [ Left Radial] Pulse Rate [ Right Dorsalis Pedis] Pulse Rate [ Right Radial] Respiratory 19 20 23 Rate Respiratory Rate [Anterior Bilateral Throughout] Blood Pressure 144/93 143/88 141/87 O2 Sat by Pulse 100 100 100 Oximetry O2 Sat by Pulse Oximetry [ Anterior Bilateral Throughout] O2 Sat by Pulse Oximetry [ Assessment] 01/04/17 01/04/17 01/04/17 03:15 03:30 03:45 Temperature Pulse Rate 95 H 96 H 98 H Pulse Rate [ Anterior Bilateral Throughout] Pulse Rate [ From Monitor] Pulse Rate [ Left Dorsalis Pedis] Pulse Rate [ Left Radial] Pulse Rate [ Right Dorsalis Pedis] Pulse Rate [ Right Radial] Respiratory 19 20 21 Rate Respiratory Rate [Anterior Bilateral Throughout] Blood Pressure 148/91 145/89 154/92 O2 Sat by Pulse 100 100 100 Oximetry O2 Sat by Pulse Oximetry [ Anterior Bilateral Throughout] O2 Sat by Pulse Oximetry [ Assessment] 01/04/17 01/04/17 01/04/17 03:57 04:00 04:15 Temperature 98.9 F Pulse Rate 96 H 97 H Pulse Rate [ Anterior Bilateral Throughout] Pulse Rate [ 86 From Monitor] Pulse Rate [ 86 Left Dorsalis Pedis] Pulse Rate [ 86 Left Radial] Pulse Rate [ 86 Right Dorsalis Pedis] Pulse Rate [ 86 Right Radial] Respiratory 22 19 Rate Respiratory Rate [Anterior Bilateral Throughout] Blood Pressure 147/86 141/89 O2 Sat by Pulse 100 100 Oximetry O2 Sat by Pulse Oximetry [ Anterior Bilateral Throughout] O2 Sat by Pulse Oximetry [ Assessment] 01/04/17 01/04/17 01/04/17 04:30 04:45 05:00 Temperature Pulse Rate 97 H 97 H 99 H Pulse Rate [ Anterior Bilateral Throughout] Pulse Rate [ From Monitor] Pulse Rate [ Left Dorsalis Pedis] Pulse Rate [ Left Radial] Pulse Rate [ Right Dorsalis Pedis] Pulse Rate [ Right Radial] Respiratory 19 19 20 Rate Respiratory Rate [Anterior Bilateral Throughout] Blood Pressure 140/85 140/87 144/92 O2 Sat by Pulse 100 100 100 Oximetry O2 Sat by Pulse Oximetry [ Anterior Bilateral Throughout] O2 Sat by Pulse Oximetry [ Assessment] 01/04/17 01/04/17 01/04/17 05:15 05:30 05:44 Temperature Pulse Rate 99 H 98 H 98 H Pulse Rate [ Anterior Bilateral Throughout] Pulse Rate [ From Monitor] Pulse Rate [ Left Dorsalis Pedis] Pulse Rate [ Left Radial] Pulse Rate [ Right Dorsalis Pedis] Pulse Rate [ Right Radial] Respiratory 20 21 Rate Respiratory Rate [Anterior Bilateral Throughout] Blood Pressure 147/86 137/89 137/80 O2 Sat by Pulse 100 100 Oximetry O2 Sat by Pulse Oximetry [ Anterior Bilateral Throughout] O2 Sat by Pulse Oximetry [ Assessment] 01/04/17 01/04/17 01/04/17 05:45 06:00 06:08 Temperature Pulse Rate 99 H 105 H 108 H Pulse Rate [ Anterior Bilateral Throughout] Pulse Rate [ From Monitor] Pulse Rate [ Left Dorsalis Pedis] Pulse Rate [ Left Radial] Pulse Rate [ Right Dorsalis Pedis] Pulse Rate [ Right Radial] Respiratory 19 17 Rate Respiratory Rate [Anterior Bilateral Throughout] Blood Pressure 145/88 142/91 142/91 O2 Sat by Pulse 100 100 Oximetry O2 Sat by Pulse Oximetry [ Anterior Bilateral Throughout] O2 Sat by Pulse Oximetry [ Assessment] 01/04/17 01/04/17 01/04/17 06:16 06:30 06:45 Temperature Pulse Rate 109 H 106 H 106 H Pulse Rate [ Anterior Bilateral Throughout] Pulse Rate [ From Monitor] Pulse Rate [ Left Dorsalis Pedis] Pulse Rate [ Left Radial] Pulse Rate [ Right Dorsalis Pedis] Pulse Rate [ Right Radial] Respiratory 21 21 24 Rate Respiratory Rate [Anterior Bilateral Throughout] Blood Pressure 182/107 133/83 143/87 O2 Sat by Pulse 99 99 99 Oximetry O2 Sat by Pulse Oximetry [ Anterior Bilateral Throughout] O2 Sat by Pulse Oximetry [ Assessment] 01/04/17 01/04/17 01/04/17 07:00 07:15 07:30 Temperature Pulse Rate 107 H 106 H 106 H Pulse Rate [ Anterior Bilateral Throughout] Pulse Rate [ From Monitor] Pulse Rate [ Left Dorsalis Pedis] Pulse Rate [ Left Radial] Pulse Rate [ Right Dorsalis Pedis] Pulse Rate [ Right Radial] Respiratory 22 23 24 Rate Respiratory Rate [Anterior Bilateral Throughout] Blood Pressure 137/84 130/79 137/80 O2 Sat by Pulse 99 99 99 Oximetry O2 Sat by Pulse Oximetry [ Anterior Bilateral Throughout] O2 Sat by Pulse Oximetry [ Assessment] 01/04/17 01/04/17 01/04/17 07:45 07:58 08:00 Temperature 98.6 F Pulse Rate 106 H 106 H Pulse Rate [ 106 H Anterior Bilateral Throughout] Pulse Rate [ From Monitor] Pulse Rate [ Left Dorsalis Pedis] Pulse Rate [ Left Radial] Pulse Rate [ Right Dorsalis Pedis] Pulse Rate [ Right Radial] Respiratory 20 23 Rate Respiratory 22 Rate [Anterior Bilateral Throughout] Blood Pressure 139/79 142/86 O2 Sat by Pulse 99 99 Oximetry O2 Sat by Pulse Oximetry [ Anterior Bilateral Throughout] O2 Sat by Pulse 99 Oximetry [ Assessment] 01/04/17 01/04/17 01/04/17 08:19 09:15 09:30 Temperature 98.6 F Pulse Rate 109 H 109 H Pulse Rate [ 104 H Anterior Bilateral Throughout] Pulse Rate [ From Monitor] Pulse Rate [ Left Dorsalis Pedis] Pulse Rate [ Left Radial] Pulse Rate [ Right Dorsalis Pedis] Pulse Rate [ Right Radial] Respiratory 32 H Rate Respiratory 16 Rate [Anterior Bilateral Throughout] Blood Pressure 143/86 143/86 O2 Sat by Pulse 99 Oximetry O2 Sat by Pulse 100 Oximetry [ Anterior Bilateral Throughout] O2 Sat by Pulse Oximetry [ Assessment] 01/04/17 01/04/17 01/04/17 09:45 10:00 10:15 Temperature Pulse Rate 110 H 110 H 110 H Pulse Rate [ Anterior Bilateral Throughout] Pulse Rate [ From Monitor] Pulse Rate [ Left Dorsalis Pedis] Pulse Rate [ Left Radial] Pulse Rate [ Right Dorsalis Pedis] Pulse Rate [ Right Radial] Respiratory Rate Respiratory Rate [Anterior Bilateral Throughout] Blood Pressure 132/63 140/84 127/83 O2 Sat by Pulse Oximetry O2 Sat by Pulse Oximetry [ Anterior Bilateral Throughout] O2 Sat by Pulse Oximetry [ Assessment] 01/04/17 01/04/17 01/04/17 10:30 10:45 11:03 Temperature Pulse Rate 111 H 109 H 109 H Pulse Rate [ Anterior Bilateral Throughout] Pulse Rate [ From Monitor] Pulse Rate [ Left Dorsalis Pedis] Pulse Rate [ Left Radial] Pulse Rate [ Right Dorsalis Pedis] Pulse Rate [ Right Radial] Respiratory Rate Respiratory Rate [Anterior Bilateral Throughout] Blood Pressure 118/74 117/77 121/81 O2 Sat by Pulse Oximetry O2 Sat by Pulse Oximetry [ Anterior Bilateral Throughout] O2 Sat by Pulse Oximetry [ Assessment] 01/04/17 01/04/17 01/04/17 11:17 11:32 11:45 Temperature Pulse Rate 110 H 110 H 110 H Pulse Rate [ Anterior Bilateral Throughout] Pulse Rate [ From Monitor] Pulse Rate [ Left Dorsalis Pedis] Pulse Rate [ Left Radial] Pulse Rate [ Right Dorsalis Pedis] Pulse Rate [ Right Radial] Respiratory Rate Respiratory Rate [Anterior Bilateral Throughout] Blood Pressure 120/74 120/84 120/87 O2 Sat by Pulse Oximetry O2 Sat by Pulse Oximetry [ Anterior Bilateral Throughout] O2 Sat by Pulse Oximetry [ Assessment] 01/04/17 01/04/1701/04/17 12:00 12:14 12:32 Temperature 98.7 F Pulse Rate 113 H 111 H 113 H Pulse Rate [ Anterior Bilateral Throughout] Pulse Rate [ From Monitor] Pulse Rate [ Left Dorsalis Pedis] Pulse Rate [ Left Radial] Pulse Rate [ Right Dorsalis Pedis] Pulse Rate [ Right Radial] Respiratory Rate Respiratory Rate [Anterior Bilateral Throughout] Blood Pressure 129/88 132/93 133/87 O2 Sat by Pulse Oximetry O2 Sat by Pulse Oximetry [ Anterior Bilateral Throughout] O2 Sat by Pulse Oximetry [ Assessment] 01/04/17 01/04/17 12:38 12:45 Temperature 98.7 F Pulse Rate 111 H 109 H Pulse Rate [ Anterior Bilateral Throughout] Pulse Rate [ From Monitor] Pulse Rate [ Left Dorsalis Pedis] Pulse Rate [ Left Radial] Pulse Rate [ Right Dorsalis Pedis] Pulse Rate [ Right Radial] Respiratory 25 H 29 H Rate Respiratory Rate [Anterior Bilateral Throughout] Blood Pressure 133/87 133/87 O2 Sat by Pulse 100 Oximetry O2 Sat by Pulse 100 Oximetry [ Anterior Bilateral Throughout] O2 Sat by Pulse Oximetry [ Assessment] - General Appearance General appearance: chronically ill, intubated (trach) EENT: ATNC Neck: other (trach collar) Respiratory: Present: Other (coarse breath sounds) Cardiology: regular, S1S2 Musculoskeletal: other (+edema) - Lab 01/03/17 05:00 01/03/17 05:00 Most recent lab results ABG pH 7.450 pH Units (7.350-7.450) 12/05/16 Unknown ABG pCO2 29.6 mm Hg 12/05/16 Unknown ABG pO2 75.2 mm Hg (80.0-90.0) L 12/05/16 Unknown ABG HCO3 20.1 mmol/L (20.0-26.0) 12/05/16 Unknown ABG O2 Saturation 96.8 % (95.0-99.0) 12/05/16 Unknown Calcium 9.0 mg/dL (8.4-10.2) 01/03/17 05:00 Phosphorus 3.10 mg/dL (2.5-4.5) 01/02/17 06:00 Magnesium 2.20 mg/dL (1.7-2.3) 01/02/17 06:00 Urine Creatinine 19.7 mg/dL (0.1-20.0) 11/12/16 10:18 Urine Sodium 36 mEq/L 09/16/16 19:19 Urine Total Protein 16 mg/dL (5-11.8) H 09/16/16 19:19
[2017-01-04] MEDS: HEPARIN SUB-Q SCH ×2 (15:07→22:42)
[2017-01-04] MEDS: ROBINUL PO SCH ×2 (15:07→22:42)
[2017-01-04] MEDS: TRANSDERM-SCOP TD SCH (15:08)
[2017-01-04] MEDS: DURAGESIC TD SCH (15:09)
[2017-01-04] MEDS: PROTONIX FEEDTUBE SCH (15:14)
[2017-01-04] MEDS ORDERED: PROCRIT IV PRN (15:26)
[2017-01-04 16:02] LABS: BUN/Creatinine Ratio 48; Blood Urea Nitrogen 43 mg/dL (7-17); Hemolysis Index 2
[2017-01-04] MEDS ORDERED: TPN ADULT IV SCH (20:00)
[2017-01-04] MEDS ORDERED: INTRALIPID 20% 250 ML IV SCH (20:00)
--- NOTE | 2017-01-04 23:44 | Progress Note ---
Assessment and Plan Assessment and plan: Patient is 46-year-old woman with a history of hypertension, diabetes, asthma, hyperlipidemia, chronic kidney disease and anxiety , who was brought in by family because, she couldn't get her words out, her face was also twisted, she was admitted for acute CVA and accelerated hypertension, she had a hx of poor adherence with her medications, and uncontrolled htn. Patient's SBP on admission was noted be greater than 260. TPA was started but this was discontinued after 5 minutes because her blood pressure became uncontrolled. The TPA was not initiated again because the patient was outside the TPA window. Status post cardiac arrest , 11/21/16 on Mechanical ventilation >96 hrs - Received CPR and was resuscitated. - Patient is on amiodarone. Fever - resolved - Antibiotic discontinued today per ID - s/p R thoracentesis on 11/14, 240cc of serous fluid removed, cx of fluid was negative - Stool negative for C. difficile Severe Sepsis with septic shock - Patient has episode of fever and leukocytosis Surgical wound infection/gram-negative sepsis/candidemia/peritonitis - On TPN JUANITA, ESRD - discussed with Dr Wadsworth - Cr 1.7 today Acute CVA with infarct - Neurology input appreciated - CT shows continued evolution of left MCA infarct with slight mass effect and edema, and there is no hemorrhage - PRINCE showed hyperdynamic with ef of 75%, neither clot nor septal defect seen - MRA Brain shows near complete occlusion of M2 and M3 of the left MCA - Repeat CT scan done on 09/11, shows stable findings - carotid doppler negative - Echo shows preserved systolic function but does show some left ventricular diastolic dysfunction - continue asa and statin Persistent vegetative state - This patient's needs placement at SNF - She was denied for LTACH Acute hypoxic respiratory failure requiring MV >96hrs - Status post tracheostomy, was on T piece Nosocomial acquired aspiration pneumonia/sepsis/UTI - Finished a course of antibiotics Asthma/COPD exacerbation - ON trach, mechanical ventilation >96 hrs Status Post CVA Bilateral pleural effusion, s/p right thoracentesis A. fib with RVR Diabetes type 2. Continue sliding-scale regular insulin and Accu-Cheks. Hyperlipidemia. Continue statin Nutrition - TPN Anemia requiring multiple transfusions/acute blood loss - currently stable - Will transfuse if it is below 7 Sacral decubitus ulcer - Status post debridement Disposition. Very poor prognosis. Ethics consult has been placed, will await there input. The high probability of a clinically significant, sudden or life threatening deterioration of the [neurologic, CV] system(s) required my full and direct attention, intervention and personal management. The aggregate critical care time was [35] minutes. This time is in addition to time spent performing reported procedures but includes the following: [x] Data Review and interpretation [x] Patient assessment and monitoring of vital signs [x] Documentation [x] Medication orders and management History Interval history: patient seen and examined, remains unresponsive on the ventilator. No new event , drains still with significant output Hospitalist Physical - Physical exam Narrative exam: GEN: Ill appearing, trach, staring into space, not tracking either NECK: SUPPLE, trach in place, ngt in place CVS: regular currently NORMAL S1S2 LUNGS/CHEST: NORMAL CHEST EXPANSION B, GOOD AIR ENTRY B ABD: SOFT, NTND, ostomy bags in different locations, GBS, NO REBOUND OR GUARDING, peg tube in place EXT/SKIN: NO SIGNIFICANT EDEMA BUT WITH UNSTAGEABLE SACRAL DECUB MSK: +spontaneous non purposeful movement NEURO: on a ventilator and unresponsive despite being off sedation PSY: Comatose, - Constitutional Vitals: Temp Pulse Resp BP Pulse Ox 100.0 F H 105 H 21 103/56 100 01/04/17 23:36 01/04/17 23:16 01/04/17 23:16 01/04/17 23:16 01/04/17 23:16 General appearance: Present: no acute distress, well-nourished, obese Results - Labs CBC & Chem 7: 01/03/17 05:00 01/07/17 06:00 Labs: Laboratory Last Values WBC 11.2 K/mm3 (4.5-11.0) H 01/03/17 05:00 RBC 2.56 M/mm3 (3.65-5.03) L 01/03/17 05:00 Hgb 7.2 gm/dl (10.1-14.3) L 01/03/17 05:00 Hct 22.3 % (30.3-42.9) L 01/03/17 05:00 MCV 87 fl (79-97) 01/03/17 05:00 MCH 28 pg (28-32) 01/03/17 05:00 MCHC 32 % (30-34) 01/03/17 05:00 RDW 17.3 % (13.2-15.2) H 01/03/17 05:00 Plt Count 366 K/mm3 (140-440) 01/03/17 05:00 Lymph % (Auto) 18.5 % (13.4-35.0) 01/03/17 05:00 George % (Auto) 10.0 % (0.0-7.3) H 01/03/17 05:00 Eos % (Auto) 0.5 % (0.0-4.3) 01/03/17 05:00 Baso % (Auto) 0.5 % (0.0-1.8) 01/03/17 05:00 Lymph # 2.1 K/mm3 (1.2-5.4) 01/03/17 05:00 George # 1.1 K/mm3 (0.0-0.8) H 01/03/17 05:00 Eos # 0.1 K/mm3 (0.0-0.4) 01/03/17 05:00 Baso # 0.1 K/mm3 (0.0-0.1) 01/03/17 05:00 Add Manual Diff Complete 12/19/16 05:02 Total Counted 100 12/19/16 05:02 Seg Neutrophils % 70.5 % (40.0-70.0) H 01/03/17 05:00 Seg Neuts % (Manual) 64.0 % (40.0-70.0) 12/19/16 05:02 Band Neutrophils % 15.0 % 12/19/16 05:02 Lymphocytes % (Manual) 13.0 % (13.4-35.0) L 12/19/16 05:02 Reactive Lymphs % (Man) 0 % 12/19/16 05:02 Monocytes % (Manual) 7.0 % (0.0-7.3) 12/19/16 05:02 Eosinophils % (Manual) 0 % (0.0-4.3) 12/19/16 05:02 Basophils % (Manual) 1.0 % (0.0-1.8) 12/19/16 05:02 Metamyelocytes % 0 % 12/19/16 05:02 Myelocytes % 0 % 12/19/16 05:02 Promyelocytes % 0 % 12/19/16 05:02 Blast Cells % 0 % 12/19/16 05:02 Nucleated RBC % 1.0 % (0.0-0.9) H 12/19/16 05:02 Seg Neutrophils # 7.9 K/mm3 (1.8-7.7) H 01/03/17 05:00 Seg Neutrophils # Man 12.9 K/mm3 (1.8-7.7) H 12/19/16 05:02 Band Neutrophils # 3.0 K/mm3 12/19/16 05:02 Lymphocytes # (Manual) 2.6 K/mm3 (1.2-5.4) 12/19/16 05:02 Abs React Lymphs (Man) 0.0 K/mm3 12/19/16 05:02 Monocytes # (Manual) 1.4 K/mm3 (0.0-0.8) H 12/19/16 05:02 Eosinophils # (Manual) 0.0 K/mm3 (0.0-0.4) 12/19/16 05:02 Basophils # (Manual) 0.2 K/mm3 (0.0-0.1) H 12/19/16 05:02 Metamyelocytes # 0.0 K/mm3 12/19/16 05:02 Myelocytes # 0.0 K/mm3 12/19/16 05:02 Promyelocytes # 0.0 K/mm3 12/19/16 05:02 Blast Cells # 0.0 K/mm3 12/19/16 05:02 Pathologist Review 09/13/16 04:00 WBC Morphology Not Reportable 12/19/16 05:02 Hypersegmented Neuts Not Reportable 12/19/16 05:02 Hyposegmented Neuts Not Reportable 12/19/16 05:02 Hypogranular Neuts Not Reportable 12/19/16 05:02 Smudge Cells Not Reportable 12/19/16 05:02 Toxic Granulation Not Reportable 12/19/16 05:02 Toxic Vacuolation Not Reportable 12/19/16 05:02 Dohle Bodies Not Reportable 12/19/16 05:02 Pelger-Huet Anomaly Not Reportable 12/19/16 05:02 Jasmina Rods Not Reportable 12/19/16 05:02 Platelet Estimate Consistent w auto 12/19/16 05:02 Clumped Platelets Not Reportable 12/19/16 05:02 Plt Clumps, EDTA Not Reportable 12/19/16 05:02 Large Platelets Not Reportable 12/19/16 05:02 Giant Platelets Not Reportable 12/19/16 05:02 Platelet Satelliting Not Reportable 12/19/16 05:02 Plt Morphology Comment Not Reportable 12/19/16 05:02 RBC Morphology Not Reportable 12/19/16 05:02 Dimorphic RBCs Not Reportable 12/19/16 05:02 Polychromasia Not Reportable 12/19/16 05:02 Hypochromasia Not Reportable 12/19/16 05:02 Poikilocytosis Not Reportable 12/19/16 05:02 Anisocytosis Not Reportable 12/19/16 05:02 Microcytosis Not Reportable 12/19/16 05:02 Macrocytosis Not Reportable 12/19/16 05:02 Spherocytes Not Reportable 12/19/16 05:02 Pappenheimer Bodies Not Reportable 12/19/16 05:02 Sickle Cells Not Reportable 12/19/16 05:02 Target Cells Few 12/19/16 05:02 Tear Drop Cells Not Reportable 12/19/16 05:02 Ovalocytes Not Reportable 12/19/16 05:02 Stomatocytes Rare 12/03/16 04:00 Helmet Cells Not Reportable 12/19/16 05:02 [place] Bodies Not Reportable 12/19/16 05:02 Miles Rings Not Reportable 12/19/16 05:02 [place] Cells Not Reportable 12/19/16 05:02 Bite Cells Not Reportable 12/19/16 05:02 Crenated Cell Not Reportable 12/19/16 05:02 Elliptocytes Not Reportable 12/19/16 05:02 Acanthocytes (Spur) Not Reportable 12/19/16 05:02 Rouleaux Not Reportable 12/19/16 05:02 Hemoglobin C Crystals Not Reportable 12/19/16 05:02 Schistocytes Not Reportable 12/19/16 05:02 Malaria parasites Not Reportable 12/19/16 05:02 ESR > 140.0 mm/Hr (0-20) 09/08/16 11:48 Jun Bodies Not Reportable 12/19/16 05:02 Hem Pathologist Commnt No 12/19/16 05:02 PT 16.1 Sec. (12.2-14.9) H 12/28/16 08:30 INR 1.23 (0.87-1.13) H 12/28/16 08:30 APTT 33.0 Sec. (24.2-36.6) 10/09/16 03:45 Thrombin Time 16.8 Sec. (15.1-19.6) 09/03/16 00:10 Fibrinogen 750 mg/dl (211-480) H 09/08/16 11:48 Lupus Anticoagulant see below 09/12/16 09:59 LA PTT Baseline See scanned report 09/12/16 09:59 dRVVT Confirm Interp Positive (Negative) H 09/12/16 09:59 dRVVT Screen 50:50 See scanned report 09/12/16 09:59 dRVVT Mix Interpret See scanned report 09/12/16 09:59 Protein C Antigen 122 % (70-140) 09/08/16 15:35 Free Protein S 97 % normal (50-147) 09/08/16 15:35 Total Protein S 109 % (70-140) 09/08/16 15:35 Antithrombin III Ag 100 % (80-120) 09/08/16 15:35 Heparin Anti-Xa, Unfract Negative (Negative) 09/29/16 13:35 Factor V Activity 182 % (65-150) H 09/08/16 15:35 POC ABG pH 7.503 (7.35-7.45) H 12/19/16 09:36 ABG pH 7.450 pH Units (7.350-7.450) 12/05/16 Unknown POC ABG pCO2 30.1 (35-45) L 12/19/16 09:36 ABG pCO2 29.6 mm Hg 12/05/16 Unknown POC ABG pO2 85 (80-105) 12/19/16 09:36 ABG pO2 75.2 mm Hg (80.0-90.0) L 12/05/16 Unknown POC ABG HCO3 23.6 12/19/16 09:36 ABG HCO3 20.1 mmol/L (20.0-26.0) 12/05/16 Unknown POC ABG Total CO2 25 12/19/16 09:36 POC ABG O2 Sat 97 12/19/16 09:36 ABG O2 Saturation 96.8 % (95.0-99.0) 12/05/16 Unknown ABG O2 Content 9.9 (0.0-44) 12/05/16 Unknown POC ABG Base Excess 1 12/19/16 09:36 ABG Base Excess -3.4 mmol/L (-2.0-3.0) L 12/05/16 Unknown ABG Hemoglobin 7.4 gm/dl (12.0-16.0) L 12/05/16 Unknown ABG Carboxyhemoglobin 1.8 % (0.0-5.0) 12/05/16 Unknown ABG Methemoglobin 0.6 % (0.0-1.5) 12/05/16 Unknown Oxyhemoglobin 94.5 % (95.0-99.0) L 12/05/16 Unknown FiO2 28 % 12/19/16 09:36 Sodium 140 mmol/L (137-145) 01/04/17 15:27 Potassium 4.1 mmol/L (3.6-5.0) 01/04/17 15:27 Chloride 102.6 mmol/L (98-107) 01/04/17 15:27 Carbon Dioxide 28 mmol/L (22-30) 01/04/17 15:27 Anion Gap 14 mmol/L 01/04/17 15:27 BUN 43 mg/dL (7-17) H 01/04/17 15:27 Creatinine 0.9 mg/dL (0.7-1.2) 01/04/17 15:27 Estimated GFR > 60 ml/min 01/04/17 15:27 BUN/Creatinine Ratio 48 % 01/04/17 15:27 Glucose 124 mg/dL (65-100) H 01/04/17 15:27 POC Glucose 123 (70-105) H 01/04/17 23:31 Osmolality 351 Mosm/kg 09/16/16 11:47 Lactic Acid 4.50 mmol/L (0.7-2.0) H* 09/28/16 07:25 Calcium 8.0 mg/dL (8.4-10.2) L 01/04/17 15:27 Phosphorus 2.10 mg/dL (2.5-4.5) L 01/04/17 15:27 Magnesium 1.80 mg/dL (1.7-2.3) 01/04/17 15:27 Total Bilirubin 0.50 mg/dL (0.1-1.2) 01/01/17 05:00 Direct Bilirubin 0.3 mg/dL (0-0.2) H 10/10/16 05:00 Indirect Bilirubin 0.1 mg/dL 10/10/16 05:00 AST 35 units/L (5-40) 01/01/17 05:00 ALT 51 units/L (7-56) 01/01/17 05:00 Alkaline Phosphatase 536 units/L (35-129) H 01/01/17 05:00 Ammonia 27.0 umol/L (25-60) 09/07/16 08:37 Lactate Dehydrogenase 196 units/L (91-180) H 11/11/16 06:59 Total Creatine Kinase 121 units/L (30-135) 09/29/16 20:12 CK-MB (CK-2) < 1.0 ng/mL (0.0-4.0) 09/29/16 20:12 CK-MB (CK-2) Rel Index 0.8 (0-4) 09/29/16 20:12 Troponin T 0.204 ng/mL (0.00-0.029) H* 09/29/16 20:12 C-Reactive Protein 19.30 mg/dL (0.00-1.30) H 12/05/16 05:00 Total Protein 6.3 g/dL (6.3-8.2) 01/01/17 05:00 Albumin 1.5 g/dL (3.9-5) L 01/01/17 05:00 Albumin/Globulin Ratio 0.3 % 01/01/17 05:00 Prealbumin 0.110 g/L (0.200-0.400) L 12/29/16 05:15 Triglycerides 137 mg/dL (2-149) 09/29/16 20:12 Cholesterol 31 mg/dL (50-199) L 09/29/16 20:12 LDL Cholesterol Direct 4 mg/dL (50-130) L 09/29/16 20:12 HDL Cholesterol 3 mg/dL (40-59) L 09/29/16 20:12 Cholesterol/HDL Ratio 10.33 % 09/29/16 20:12 Angiotensin Convert Enz See scanned report 09/08/16 11:48 Renin 0.99 ng/mL/h (0.25-5.82) 10/07/16 10:56 Aldosterone <1 ng/dL () 10/07/16 10:56 Aldosterone/Renin Dir see below 10/07/16 10:56 Serotonin Release Assay See scanned report 09/29/16 13:35 TSH 1.010 mlU/mL (0.270-4.200) 09/07/16 08:37 HCG, Qual Negative (Negative) 09/03/16 00:10 Urine Color Yellow (Yellow) 11/05/16 13:09 Urine Turbidity Clear (Clear) 11/05/16 13:09 Urine pH 9.0 (5.0-7.0) H 11/05/16 13:09 Ur Specific [place] 1.011 (1.003-1.030) 11/05/16 13:09 Urine Protein 100 mg/dl mg/dL (Negative) 11/05/16 13:09 Urine Glucose (UA) Neg mg/dL (Negative) 11/05/16 13:09 Urine Ketones Neg mg/dL (Negative) 11/05/16 13:09 Urine Blood Neg (Negative) 11/05/16 13:09 Urine Nitrite Neg (Negative) 11/05/16 13:09 Urine Bilirubin Neg (Negative) 11/05/16 13:09 Urine Urobilinogen < 2.0 mg/dL (<2.0) 11/05/16 13:09 Ur Leukocyte Esterase Neg (Negative) 11/05/16 13:09 Urine WBC (Auto) 4.0 /HPF (0.0-6.0) 11/05/16 13:09 Urine RBC (Auto) 1.0 /HPF (0.0-6.0) 11/05/16 13:09 U Epithel Cells (Auto) 1.0 /HPF (0-13.0) 10/07/16 18:30 Urine Bacteria (Auto) 4+ /HPF (Negative) 11/05/16 13:09 Urine WBC Clumps 2+ /HPF 09/07/16 02:47 Hyaline Casts 4 /LPF 09/07/16 02:47 Urine Mucus Few /HPF 10/07/16 18:30 Urine Yeast (Budding) 3+ /HPF 10/07/16 18:30 Urine Eosinophils None seen (None Seen) 09/07/16 16:00 Urine Total Volume 950 11/12/16 10:18 Urine Creatinine 19.7 mg/dL (0.1-20.0) 11/12/16 10:18 Height (in) 65.0 inches 11/12/16 10:18 Weight (lb) 181.0 lbs 11/12/16 10:18 Creatinine Clearance 5 11/12/16 10:18 Urine Sodium 36 mEq/L 09/16/16 19:19 Urine Total Protein 16 mg/dL (5-11.8) H 09/16/16 19:19 Fluid Total Protein < 3.0 (15.0-45.0) L 11/10/16 14:20 Fluid LDH 123 11/10/16 14:20 Vancomycin Trough 2.3 ug/mL (5.0-20.0) L 09/21/16 13:00 Random Vancomycin 16.5 ug/mL (0-40.0) 11/28/16 09:45 Urine Opiates Screen Presumptive negative 09/03/16 15:11 Urine Methadone Screen Presumptive positive 09/03/16 15:11 Ur Barbiturates Screen Presumptive positive 09/03/16 15:11 Ur Phencyclidine Scrn Presumptive negative 09/03/16 15:11 Ur Amphetamines Screen Presumptive negative 09/03/16 15:11 U Benzodiazepines Scrn Presumptive negative 09/03/16 15:11 Urine Cocaine Screen Presumptive negative 09/03/16 15:11 U Marijuana (THC) Screen Presumptive positive 09/03/16 15:11 Drugs of Abuse Note Disclamer 09/03/16 15:11 Rheumatoid Factor 24 IU/ml (0-13) H 09/08/16 11:48 SAHIL Screen Negative (Negative) 09/07/16 09:20 Proteinase 3 (PR3) Ab <1.0 AI (<1.0) 09/07/16 09:20 Myeloperoxidase Ab <1.0 AI (<1.0) 09/07/16 09:20 Sjogren's Antibody <1.0 AI (<1.0) 09/08/16 15:35 Scl-70 Scleroderma Ab <1.0 AI (<1.0) 09/08/16 15:35 Centromere B Antibody <1.0 AI (<1.0) 09/08/16 12:02 Heparin-induced Plt Ab Negative (Negative) 09/29/16 13:35 UF Heparin High Dose 11 % Release 09/29/16 13:35 SUDHIR UFH Low Dose 0.1 6 % Release 09/29/16 13:35 SUDHIR UFH Low Dose 0.5 8 % Release 09/29/16 13:35 Cardiolipid IgG Ab <14 GPL (<=14) 09/12/16 09:59 Cardiolipid IgA Ab <11 APL (<=11) 09/12/16 09:59 Cardiolipid IgM Ab <12 MPL (<=12) 09/12/16 09:59 Complement C3 148 mg/dL (90-180) 09/07/16 09:20 Complement C4 58 mg/dL (16-47) H 09/07/16 09:20 RPR Nonreactive (Nonreactive) 09/08/16 11:48 Hepatitis A IgM Ab Non-reactive (NonReactive) 09/24/16 14:40 Hep Bs Antigen Non-reactive (Negative) 09/24/16 14:40 Hep B Core IgM Ab Non-reactive (NonReactive) 09/24/16 14:40 Hepatitis C Antibody Non-reactive (NonReactive) 09/24/16 14:40 HIV 1&2 Antibody Rapid Non react (Non React) 09/08/16 11:48 HIV P24 Antigen Non react (Non React) 09/08/16 11:48 Miscellaneous Test Flexitest 1 H 11/05/16 13:25 Blood Type A POSITIVE 12/29/16 14:00 Antibody Screen Negative 12/29/16 14:00 DELORIS Antibody Screen Negative 11/24/16 11:20 Crossmatch See Detail 12/29/16 14:00
[2017-01-05] MEDS: HumuLIN R SUB-Q SCH ×4 (00:15→17:55)
[2017-01-05] MEDS: LOPRESSOR PO SCH ×4 (00:52→17:55)
[2017-01-05] MEDS: DUONEB *Not for PRN Use IH SCH ×4 (02:01→19:45)
[2017-01-05] MEDS: APRESOLINE PO SCH ×3 (07:49→22:12)
[2017-01-05 08:16] LABS: BUN/Creatinine Ratio 40; Blood Urea Nitrogen 52 mg/dL (7-17); Calcium 8.9 mg/dL (8.4-10.2)
--- NOTE | 2017-01-05 10:13 | Progress Note ---
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 Epogen 20k TIW * Dose medications for renal function * Avoid potential nephrotoxins * Rate control per cardiology * Vent management per pulm/CCM * Pressors prn for MAP>65 Subjective Date of service: 01/05/17 Principal diagnosis: Acute resp failure on MVS; S/P Acute CVA; Acute Encephalopathy; JUANITA Interval history: No acute events overnight. Objective - Vital Signs Vital signs: Vital Signs - 12hr 01/04/17 01/04/17 01/04/17 22:16 22:30 22:42 Temperature Pulse Rate 103 H 104 H 104 H Pulse Rate [ Anterior Bilateral Throughout] Pulse Rate [ From Monitor] Respiratory 21 22 Rate Respiratory Rate [Anterior Bilateral Throughout] Blood Pressure 120/69 120/69 120/69 O2 Sat by Pulse 100 100 Oximetry O2 Sat by Pulse Oximetry [ Assessment] 01/04/17 01/04/17 01/04/17 22:46 23:00 23:16 Temperature Pulse Rate 106 H 103 H 105 H Pulse Rate [ Anterior Bilateral Throughout] Pulse Rate [ From Monitor] Respiratory 21 21 21 Rate Respiratory Rate [Anterior Bilateral Throughout] Blood Pressure 120/69 103/56 103/56 O2 Sat by Pulse 100 100 100 Oximetry O2 Sat by Pulse Oximetry [ Assessment] 01/04/17 01/04/17 01/04/17 23:20 23:30 23:36 Temperature 100.0 F H Pulse Rate 104 H 105 H Pulse Rate [ Anterior Bilateral Throughout] Pulse Rate [ From Monitor] Respiratory 20 27 H Rate Respiratory Rate [Anterior Bilateral Throughout] Blood Pressure 103/56 103/56 O2 Sat by Pulse 99 99 Oximetry O2 Sat by Pulse Oximetry [ Assessment] 01/04/17 01/05/17 01/05/17 23:46 00:00 00:15 Temperature Pulse Rate 107 H 107 H Pulse Rate [ Anterior Bilateral Throughout] Pulse Rate [ 102 H From Monitor] Respiratory 19 23 18 Rate Respiratory Rate [Anterior Bilateral Throughout] Blood Pressure 103/56 110/59 O2 Sat by Pulse 99 99 100 Oximetry O2 Sat by Pulse Oximetry [ Assessment] 01/05/17 01/05/17 01/05/17 00:16 00:30 00:40 Temperature Pulse Rate 104 H 107 H 107 H Pulse Rate [ Anterior Bilateral Throughout] Pulse Rate [ From Monitor] Respiratory 17 21 Rate Respiratory Rate [Anterior Bilateral Throughout] Blood Pressure 110/59 110/59 110/59 O2 Sat by Pulse 100 100 100 Oximetry O2 Sat by Pulse Oximetry [ Assessment] 01/05/17 01/05/17 01/05/17 00:46 00:52 01:00 Temperature Pulse Rate 118 H 102 H 118 H Pulse Rate [ Anterior Bilateral Throughout] Pulse Rate [ From Monitor] Respiratory 14 23 Rate Respiratory Rate [Anterior Bilateral Throughout] Blood Pressure 110/59 110/50 111/60 O2 Sat by Pulse 100 97 Oximetry O2 Sat by Pulse Oximetry [ Assessment] 01/05/17 01/05/17 01/05/17 01:16 01:30 02:00 Temperature Pulse Rate 117 H 114 H Pulse Rate [ 116 H Anterior Bilateral Throughout] Pulse Rate [ From Monitor] Respiratory 21 17 Rate Respiratory 20 Rate [Anterior Bilateral Throughout] Blood Pressure 111/60 111/60 O2 Sat by Pulse 98 99 Oximetry O2 Sat by Pulse Oximetry [ Assessment] 01/05/17 01/05/17 01/05/17 02:17 04:00 05:45 Temperature 100.9 F H Pulse Rate 117 H Pulse Rate [ 119 H Anterior Bilateral Throughout] Pulse Rate [ From Monitor] Respiratory Rate Respiratory 20 Rate [Anterior Bilateral Throughout] Blood Pressure 114/60 O2 Sat by Pulse 100 Oximetry O2 Sat by Pulse Oximetry [ Assessment] 01/05/17 01/05/17 01/05/17 07:00 07:16 07:30 Temperature Pulse Rate 102 H 100 H 103 H Pulse Rate [ Anterior Bilateral Throughout] Pulse Rate [ From Monitor] Respiratory 17 19 19 Rate Respiratory Rate [Anterior Bilateral Throughout] Blood Pressure 114/60 114/60 140/82 O2 Sat by Pulse 100 100 100 Oximetry O2 Sat by Pulse Oximetry [ Assessment] 01/05/17 01/05/17 01/05/17 07:46 08:00 08:35 Temperature 100.6 F H Pulse Rate 99 H 100 H Pulse Rate [ 101 H Anterior Bilateral Throughout] Pulse Rate [ From Monitor] Respiratory 18 18 Rate Respiratory 19 Rate [Anterior Bilateral Throughout] Blood Pressure 140/82 122/74 O2 Sat by Pulse 100 100 100 Oximetry O2 Sat by Pulse 99 Oximetry [ Assessment] - General Appearance General appearance: chronically ill, intubated EENT: ATNC Neck: other (trach collar) Respiratory: Present: Other (coarse rhonchi bilaterally) Cardiology: regular, S1S2 Gastrointestinal: no distended, obese Neurologic: other (does not respond to tactile/verbal stimuli; does not track) Musculoskeletal: other (+edema) - Lab 01/03/17 05:00 01/05/17 04:00 Most recent lab results ABG pH 7.450 pH Units (7.350-7.450) 12/05/16 Unknown ABG pCO2 29.6 mm Hg 12/05/16 Unknown ABG pO2 75.2 mm Hg (80.0-90.0) L 12/05/16 Unknown ABG HCO3 20.1 mmol/L (20.0-26.0) 12/05/16 Unknown ABG O2 Saturation 96.8 % (95.0-99.0) 12/05/16 Unknown Calcium 8.9 mg/dL (8.4-10.2) 01/05/17 04:00 Phosphorus 2.40 mg/dL (2.5-4.5) L 01/05/17 04:00 Magnesium 1.80 mg/dL (1.7-2.3) 01/05/17 04:00 Urine Creatinine 19.7 mg/dL (0.1-20.0) 11/12/16 10:18 Urine Sodium 36 mEq/L 09/16/16 19:19 Urine Total Protein 16 mg/dL (5-11.8) H 09/16/16 19:19
--- NOTE | 2017-01-05 10:40 | Progress Note ---
Assessment and Plan Patient is 46-year-old woman with a history of hypertension, diabetes mellitus, asthma, hyperlipidemia, chronic kidney disease and anxiety, who was brought in by family because she couldn't get her words out, her face was also twisted, she was admitted for acute CVA and accelerated hypertension, she had a hx of poor adherence with her medications, and uncontrolled htn. Patient's SBP on admission was noted be greater than 260. TPA was started but this it was discontinued after 5 minutes because her blood pressure became uncontrolled. The TPA was not initiated again because the patient was outside the TPA window. Patient has had a prolonged hospital stay complicated with recurrent severe sepsis. Patient with most recent event also status post cardiac arrest on , with CPR and ROSC. Acute on chronic Hypoxemic Respiratory Failure ( not tolerating spontaneous breathing trials) Sepsis -recurrent s/p tracheostomy Hypertension Atrial Fibrillation with RVR Acute encephalopathy s/p CVA Oropharyngeal dysphagia Enterococcal bacteremia Sacral Decubitus Ulcer- unstageable Anemia Obesity JUANITA now on hemodialysis Enteric Fistula - VAP bundle addressed -CXR prn - continue NGT to LIS - continue wound care per WCT - Vasopressor if MAP falls < 65mmHg - keep on with daily PSV trials and / or T-piece as tolerated - continue TPN administration (continue TPN; NPO except for meds) - continue airway clearance nd secretion management - continue to wean FiO2 for sats > 94% - continue antihypertensives and monitor hemodynamics closely - continue HD/UF per nephrology - continue to follow electrolytes and correct as necessary - continue GI & VTE prophylaxis -per Cardiology--failed cardioversion, not a candidate fro full anticoagulation. No further recommendations for management of atrial fibrillation. Rate control as tolerated by hemodynamics For further interventions per surgical service, as it pertains to the replacement of the PEG tube. 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 - Patient Problems (1) Acute respiratory failure with hypoxia Current Visit: Yes Status: Acute (2) Acute blood loss anemia Current Visit: Yes Status: Resolved (3) Acute CVA (cerebrovascular accident) Current Visit: Yes Status: Acute (4) Chronic renal insufficiency Current Visit: Yes Status: Acute (5) Uncontrolled hypertension Current Visit: Yes Status: Acute (6) Leukocytosis (leucocytosis) Current Visit: Yes Status: Acute Qualifiers: Leukocytosis type: leukemoid reaction Qualified Code(s): D72.823 - Leukemoid reaction (7) Dislodged gastrostomy tube Current Visit: Yes Status: Acute (8) Fungemia Current Visit: Yes Status: Resolved (9) Cardiopulmonary arrest with successful resuscitation Current Visit: Yes Status: Acute Subjective Date of service: 01/05/17 Principal diagnosis: Acute resp failure on MVS; S/P Acute CVA; Acute Encephalopathy; JUANITA Interval history: Patient is seen today for: Acute resp failure on MVS; S/P Acute CVA; Acute Encephalopathy; JUANITA Seen and examined at bedside; 24hour events reviewed; nursing and respiratory care staff consulted; no adverse overnight events reported to me; she remains critically ill and is not tolerating weaning well;. Discussed in interdisciplinary rounds Objective - Exam Narrative Exam: , Vital Signs - 12hr 01/04/17 01/04/17 01/04/17 22:42 22:46 23:00 Temperature Pulse Rate 104 H 106 H 103 H Pulse Rate [ Anterior Bilateral Throughout] Pulse Rate [ From Monitor] Respiratory 21 21 Rate Respiratory Rate [Anterior Bilateral Throughout] Blood Pressure 120/69 120/69 103/56 O2 Sat by Pulse 100 100 Oximetry O2 Sat by Pulse Oximetry [ Assessment] 01/04/17 01/04/17 01/04/17 23:16 23:20 23:30 Temperature Pulse Rate 105 H 104 H 105 H Pulse Rate [ Anterior Bilateral Throughout] Pulse Rate [ From Monitor] Respiratory 21 20 27 H Rate Respiratory Rate [Anterior Bilateral Throughout] Blood Pressure 103/56 103/56 103/56 O2 Sat by Pulse 100 99 99 Oximetry O2 Sat by Pulse Oximetry [ Assessment] 01/04/17 01/04/17 01/05/17 23:36 23:46 00:00 Temperature 100.0 F H Pulse Rate 107 H 107 H Pulse Rate [ Anterior Bilateral Throughout] Pulse Rate [ From Monitor] Respiratory 19 23 Rate Respiratory Rate [Anterior Bilateral Throughout] Blood Pressure 103/56 110/59 O2 Sat by Pulse 99 99 Oximetry O2 Sat by Pulse Oximetry [ Assessment] 01/05/17 01/05/17 01/05/17 00:15 00:16 00:30 Temperature Pulse Rate 104 H 107 H Pulse Rate [ Anterior Bilateral Throughout] Pulse Rate [ 102 H From Monitor] Respiratory 18 17 21 Rate Respiratory Rate [Anterior Bilateral Throughout] Blood Pressure 110/59 110/59 O2 Sat by Pulse 100 100 100 Oximetry O2 Sat by Pulse Oximetry [ Assessment] 01/05/17 01/05/17 01/05/17 00:40 00:46 00:52 Temperature Pulse Rate 107 H 118 H 102 H Pulse Rate [ Anterior Bilateral Throughout] Pulse Rate [ From Monitor] Respiratory 14 Rate Respiratory Rate [Anterior Bilateral Throughout] Blood Pressure 110/59 110/59 110/50 O2 Sat by Pulse 100 100 Oximetry O2 Sat by Pulse Oximetry [ Assessment] 01/05/17 01/05/17 01/05/17 01:00 01:16 01:30 Temperature Pulse Rate 118 H 117 H 114 H Pulse Rate [ Anterior Bilateral Throughout] Pulse Rate [ From Monitor] Respiratory 23 21 17 Rate Respiratory Rate [Anterior Bilateral Throughout] Blood Pressure 111/60 111/60 111/60 O2 Sat by Pulse 97 98 99 Oximetry O2 Sat by Pulse Oximetry [ Assessment] 01/05/17 01/05/17 01/05/17 02:00 02:17 04:00 Temperature 100.9 F H Pulse Rate Pulse Rate [ 116 H 119 H Anterior Bilateral Throughout] Pulse Rate [ From Monitor] Respiratory Rate Respiratory 20 20 Rate [Anterior Bilateral Throughout] Blood Pressure O2 Sat by Pulse Oximetry O2 Sat by Pulse Oximetry [ Assessment] 01/05/17 01/05/17 01/05/17 05:45 07:00 07:16 Temperature Pulse Rate 117 H 102 H 100 H Pulse Rate [ Anterior Bilateral Throughout] Pulse Rate [ From Monitor] Respiratory 17 19 Rate Respiratory Rate [Anterior Bilateral Throughout] Blood Pressure 114/60 114/60 114/60 O2 Sat by Pulse 100 100 100 Oximetry O2 Sat by Pulse Oximetry [ Assessment] 01/05/17 01/05/17 01/05/17 07:30 07:46 08:00 Temperature 100.6 F H Pulse Rate 103 H 99 H 100 H Pulse Rate [ Anterior Bilateral Throughout] Pulse Rate [ From Monitor] Respiratory 19 18 18 Rate Respiratory Rate [Anterior Bilateral Throughout] Blood Pressure 140/82 140/82 122/74 O2 Sat by Pulse 100 100 100 Oximetry O2 Sat by Pulse 99 Oximetry [ Assessment] 01/05/17 08:35 Temperature Pulse Rate Pulse Rate [ 101 H Anterior Bilateral Throughout] Pulse Rate [ From Monitor] Respiratory Rate Respiratory 19 Rate [Anterior Bilateral Throughout] Blood Pressure O2 Sat by Pulse 100 Oximetry O2 Sat by Pulse Oximetry [ Assessment] Constitutional: appears uncomfortable, other (not tracking) Eyes: non-icteric, other (tracheostomy tube in midline of neck) ENT: oropharynx moist, oropharyngeal exudate pre Neck: supple, no lymphadenopathy, no JVD, other (no thyromegaly) Effort: mildly labored Ascultation: Bilateral: clear, diminished breath sounds (bases), rales, rhonchi (and referred upper airway sounds) Percussion: Bilateral: not dull, dull (bases) Cardiovascular: regular rate and rhythm, other (no rubs / murmurs) Gastrointestinal: hypoactive bowel sounds, soft, non-tender, non-distended, other (RLQ & LUQ stomas with colostomy bags) Integumentary: decubitus ulcer (sacral; stage 4 s/p surgical debridement), other (no rash; no cellulitis; poor turgor) Extremities: no cyanosis, pulses normal, no ischemia or petechiae, edema (1+ bilaterally) Neurologic: pupils equal and round, unable to assess, other (encephalopathic) Psychiatric: other (unable to assess) CBC and BMP: 01/12/17 04:30 01/14/17 05:30 ABG, PT/INR, D-dimer: ABG POC ABG pH 7.503 (7.35-7.45) H 12/19/16 09:36 ABG pH 7.450 pH Units (7.350-7.450) 12/05/16 Unknown POC ABG pCO2 30.1 (35-45) L 12/19/16 09:36 ABG pCO2 29.6 mm Hg 12/05/16 Unknown POC ABG pO2 85 (80-105) 12/19/16 09:36 ABG pO2 75.2 mm Hg (80.0-90.0) L 12/05/16 Unknown POC ABG HCO3 23.6 12/19/16 09:36 POC ABG Total CO2 25 12/19/16 09:36 POC ABG O2 Sat 97 12/19/16 09:36 ABG O2 Saturation 96.8 % (95.0-99.0) 12/05/16 Unknown PT/INR, D-dimer PT 16.1 Sec. (12.2-14.9) H 12/28/16 08:30 INR 1.23 (0.87-1.13) H 12/28/16 08:30 Abnormal lab findings: Abnormal Labs 09/03/16 09/03/16 09/03/16 00:03 00:10 00:10 WBC 13.9 H RBC 5.95 H Hgb Hct 44.0 H MCV 74 L MCH 22 L MCHC RDW 17.5 H Plt Count Lymph % (Auto) [place] % (Auto) Lymph # [place] # Baso # Seg Neutrophils % Seg Neuts % (Manual) Lymphocytes % (Manual) 54.0 H Monocytes % (Manual) Eosinophils % (Manual) Basophils % (Manual) Nucleated RBC % Seg Neutrophils # Seg Neutrophils # Man Lymphocytes # (Manual) 7.5 H Monocytes # (Manual) Eosinophils # (Manual) Basophils # (Manual) PT INR Fibrinogen dRVVT Confirm Interp Factor V Activity POC ABG pH POC ABG pCO2 POC ABG pO2 ABG pO2 ABG HCO3 ABG Base Excess ABG Hemoglobin Oxyhemoglobin Sodium Potassium 2.8 L* Chloride Carbon Dioxide 21 L BUN Creatinine 1.7 H Glucose 159 H POC Glucose 177 H Lactic Acid Calcium Phosphorus Magnesium Direct Bilirubin AST ALT Alkaline Phosphatase Lactate Dehydrogenase Troponin T C-Reactive Protein Total Protein Albumin Prealbumin Triglycerides Cholesterol LDL Cholesterol Direct HDL Cholesterol Urine pH Urine WBC (Auto) Urine Creatinine Urine Total Protein Fluid Total Protein Vancomycin Trough Rheumatoid Factor Complement C4 Miscellaneous Test Crossmatch 09/03/16 09/03/16 09/03/16 12:12 15:07 16:20 WBC RBC Hgb Hct MCV MCH MCHC RDW Plt Count Lymph % (Auto) [place] % (Auto) Lymph # [place] # Baso # Seg Neutrophils % Seg Neuts % (Manual) Lymphocytes % (Manual) Monocytes % (Manual) Eosinophils % (Manual) Basophils % (Manual) Nucleated RBC % Seg Neutrophils # Seg Neutrophils # Man Lymphocytes # (Manual) Monocytes # (Manual) Eosinophils # (Manual) Basophils # (Manual) PT INR Fibrinogen dRVVT Confirm Interp Factor V Activity POC ABG pH 7.452 H POC ABG pCO2 POC ABG pO2 ABG pO2 ABG HCO3 ABG Base Excess ABG Hemoglobin Oxyhemoglobin Sodium Potassium Chloride Carbon Dioxide BUN Creatinine Glucose POC Glucose 178 H Lactic Acid Calcium Phosphorus 2.20 L Magnesium 1.60 L Direct Bilirubin AST ALT Alkaline Phosphatase Lactate Dehydrogenase Troponin T C-Reactive Protein Total Protein Albumin Prealbumin Triglycerides Cholesterol LDL Cholesterol Direct HDL Cholesterol Urine pH Urine WBC (Auto) Urine Creatinine Urine Total Protein Fluid Total Protein Vancomycin Trough Rheumatoid Factor Complement C4 Miscellaneous Test Crossmatch 09/03/16 09/03/16 09/03/16 17:57 17:58 23:50 WBC RBC Hgb Hct MCV MCH MCHC RDW Plt Count Lymph % (Auto) [place] % (Auto) Lymph # [place] # Baso # Seg Neutrophils % Seg Neuts % (Manual) Lymphocytes % (Manual) Monocytes % (Manual) Eosinophils % (Manual) Basophils % (Manual) Nucleated RBC % Seg Neutrophils # Seg Neutrophils # Man Lymphocytes # (Manual) Monocytes # (Manual) Eosinophils # (Manual) Basophils # (Manual) PT INR Fibrinogen dRVVT Confirm Interp Factor V Activity POC ABG pH POC ABG pCO2 POC ABG pO2 ABG pO2 ABG HCO3 ABG Base Excess ABG Hemoglobin Oxyhemoglobin Sodium Potassium Chloride Carbon Dioxide BUN Creatinine Glucose POC Glucose 162 H 145 H Lactic Acid Calcium Phosphorus 2.30 L Magnesium Direct Bilirubin AST ALT Alkaline Phosphatase Lactate Dehydrogenase Troponin T C-Reactive Protein Total Protein Albumin Prealbumin Triglycerides Cholesterol LDL Cholesterol Direct HDL Cholesterol Urine pH Urine WBC (Auto) Urine Creatinine Urine Total Protein Fluid Total Protein Vancomycin Trough Rheumatoid Factor Complement C4 Miscellaneous Test Crossmatch 09/04/16 09/04/16 09/04/16 03:31 03:31 05:42 WBC RBC Hgb 9.7 L D Hct MCV 72 L MCH 23 L MCHC RDW 17.5 H Plt Count Lymph % (Auto) 11.1 L [place] % (Auto) Lymph # [place] # Baso # Seg Neutrophils % 84.3 H Seg Neuts % (Manual) Lymphocytes % (Manual) Monocytes % (Manual) Eosinophils % (Manual) Basophils % (Manual) Nucleated RBC % Seg Neutrophils # 8.9 H Seg Neutrophils # Man Lymphocytes # (Manual) Monocytes # (Manual) Eosinophils # (Manual) Basophils # (Manual) PT INR Fibrinogen dRVVT Confirm Interp Factor V Activity POC ABG pH POC ABG pCO2 POC ABG pO2 ABG pO2 ABG HCO3 ABG Base Excess ABG Hemoglobin Oxyhemoglobin Sodium 135 L Potassium 2.9 L* Chloride 97.2 L Carbon Dioxide 19 L BUN Creatinine 1.7 H Glucose 170 H POC Glucose 152 H Lactic Acid Calcium Phosphorus Magnesium Direct Bilirubin AST ALT Alkaline Phosphatase Lactate Dehydrogenase Troponin T C-Reactive Protein Total Protein Albumin Prealbumin Triglycerides 160 H Cholesterol LDL Cholesterol Direct HDL Cholesterol 31 L Urine pH Urine WBC (Auto) Urine Creatinine Urine Total Protein Fluid Total Protein Vancomycin Trough Rheumatoid Factor Complement C4 Miscellaneous Test Crossmatch 09/04/16 09/04/16 09/04/16 11:34 17:46 23:29 WBC RBC Hgb Hct MCV MCH MCHC RDW Plt Count Lymph % (Auto) [place] % (Auto) Lymph # [place] # Baso # Seg Neutrophils % Seg Neuts % (Manual) Lymphocytes % (Manual) Monocytes % (Manual) Eosinophils % (Manual) Basophils % (Manual) Nucleated RBC % Seg Neutrophils # Seg Neutrophils # Man Lymphocytes # (Manual) Monocytes # (Manual) Eosinophils # (Manual) Basophils # (Manual) PT INR Fibrinogen dRVVT Confirm Interp Factor V Activity POC ABG pH POC ABG pCO2 POC ABG pO2 ABG pO2 ABG HCO3 ABG Base Excess ABG Hemoglobin Oxyhemoglobin Sodium Potassium Chloride Carbon Dioxide BUN Creatinine Glucose POC Glucose 165 H 210 H 139 H Lactic Acid Calcium Phosphorus Magnesium Direct Bilirubin AST ALT Alkaline Phosphatase Lactate Dehydrogenase Troponin T C-Reactive Protein Total Protein Albumin Prealbumin Triglycerides Cholesterol LDL Cholesterol Direct HDL Cholesterol Urine pH Urine WBC (Auto) Urine Creatinine Urine Total Protein Fluid Total Protein Vancomycin Trough Rheumatoid Factor Complement C4 Miscellaneous Test Crossmatch 09/05/16 09/05/16 09/05/16 04:05 04:05 05:38 WBC RBC Hgb Hct MCV 76 L D MCH 23 L MCHC RDW 17.8 H Plt Count Lymph % (Auto) [place] % (Auto) Lymph # [place] # Baso # Seg Neutrophils % Seg Neuts % (Manual) Lymphocytes % (Manual) Monocytes % (Manual) Eosinophils % (Manual) Basophils % (Manual) Nucleated RBC % Seg Neutrophils # Seg Neutrophils # Man Lymphocytes # (Manual) Monocytes # (Manual) Eosinophils # (Manual) Basophils # (Manual) PT INR Fibrinogen dRVVT Confirm Interp Factor V Activity POC ABG pH POC ABG pCO2 POC ABG pO2 ABG pO2 ABG HCO3 ABG Base Excess ABG Hemoglobin Oxyhemoglobin Sodium 134 L Potassium Chloride Carbon Dioxide 18 L BUN Creatinine 1.8 H Glucose 192 H POC Glucose 175 H Lactic Acid Calcium Phosphorus Magnesium Direct Bilirubin AST ALT Alkaline Phosphatase Lactate Dehydrogenase Troponin T C-Reactive Protein Total Protein Albumin Prealbumin Triglycerides Cholesterol LDL Cholesterol Direct HDL Cholesterol Urine pH Urine WBC (Auto) Urine Creatinine Urine Total Protein Fluid Total Protein Vancomycin Trough Rheumatoid Factor Complement C4 Miscellaneous Test Crossmatch 09/05/16 09/05/16 09/05/16 11:38 17:48 23:22 WBC RBC Hgb Hct MCV MCH MCHC RDW Plt Count Lymph % (Auto) [place] % (Auto) Lymph # [place] # Baso # Seg Neutrophils % Seg Neuts % (Manual) Lymphocytes % (Manual) Monocytes % (Manual) Eosinophils % (Manual) Basophils % (Manual) Nucleated RBC % Seg Neutrophils # Seg Neutrophils # Man Lymphocytes # (Manual) Monocytes # (Manual) Eosinophils # (Manual) Basophils # (Manual) PT INR Fibrinogen dRVVT Confirm Interp Factor V Activity POC ABG pH POC ABG pCO2 POC ABG pO2 ABG pO2 ABG HCO3 ABG Base Excess ABG Hemoglobin Oxyhemoglobin Sodium Potassium Chloride Carbon Dioxide BUN Creatinine Glucose POC Glucose 164 H 186 H 195 H Lactic Acid Calcium Phosphorus Magnesium Direct Bilirubin AST ALT Alkaline Phosphatase Lactate Dehydrogenase Troponin T C-Reactive Protein Total Protein Albumin Prealbumin Triglycerides Cholesterol LDL Cholesterol Direct HDL Cholesterol Urine pH Urine WBC (Auto) Urine Creatinine Urine Total Protein Fluid Total Protein Vancomycin Trough Rheumatoid Factor Complement C4 Miscellaneous Test Crossmatch 09/06/16 09/06/16 09/06/16 04:12 05:59 07:32 WBC RBC Hgb Hct MCV MCH MCHC RDW Plt Count Lymph % (Auto) [place] % (Auto) Lymph # [place] # Baso # Seg Neutrophils % Seg Neuts % (Manual) Lymphocytes % (Manual) Monocytes % (Manual) Eosinophils % (Manual) Basophils % (Manual) Nucleated RBC % Seg Neutrophils # Seg Neutrophils # Man Lymphocytes # (Manual) Monocytes # (Manual) Eosinophils # (Manual) Basophils # (Manual) PT INR Fibrinogen dRVVT Confirm Interp Factor V Activity POC ABG pH 7.514 H POC ABG pCO2 29.1 L POC ABG pO2 72 L ABG pO2 ABG HCO3 ABG Base Excess ABG Hemoglobin Oxyhemoglobin Sodium 133 L Potassium 3.4 L Chloride 94.9 L Carbon Dioxide 19 L BUN 30 H Creatinine 2.1 H Glucose 139 H POC Glucose 146 H Lactic Acid Calcium Phosphorus Magnesium Direct Bilirubin AST ALT Alkaline Phosphatase Lactate Dehydrogenase Troponin T C-Reactive Protein Total Protein Albumin Prealbumin Triglycerides Cholesterol LDL Cholesterol Direct HDL Cholesterol Urine pH Urine WBC (Auto) Urine Creatinine Urine Total Protein Fluid Total Protein Vancomycin Trough Rheumatoid Factor Complement C4 Miscellaneous Test Crossmatch 09/06/16 09/06/16 09/06/16 11:57 17:58 19:02 WBC RBC Hgb Hct MCV MCH MCHC RDW Plt Count Lymph % (Auto) [place] % (Auto) Lymph # [place] # Baso # Seg Neutrophils % Seg Neuts % (Manual) Lymphocytes % (Manual) Monocytes % (Manual) Eosinophils % (Manual) Basophils % (Manual) Nucleated RBC % Seg Neutrophils # Seg Neutrophils # Man Lymphocytes # (Manual) Monocytes # (Manual) Eosinophils # (Manual) Basophils # (Manual) PT INR Fibrinogen dRVVT Confirm Interp Factor V Activity POC ABG pH 7.465 H POC ABG pCO2 32.0 L POC ABG pO2 ABG pO2 ABG HCO3 ABG Base Excess ABG Hemoglobin Oxyhemoglobin Sodium Potassium Chloride Carbon Dioxide BUN Creatinine Glucose POC Glucose 165 H 160 H Lactic Acid Calcium Phosphorus Magnesium Direct Bilirubin AST ALT Alkaline Phosphatase Lactate Dehydrogenase Troponin T C-Reactive Protein Total Protein Albumin Prealbumin Triglycerides Cholesterol LDL Cholesterol Direct HDL Cholesterol Urine pH Urine WBC (Auto) Urine Creatinine Urine Total Protein Fluid Total Protein Vancomycin Trough Rheumatoid Factor Complement C4 Miscellaneous Test Crossmatch 09/06/16 09/07/16 09/07/16 23:45 02:47 02:47 WBC RBC Hgb Hct MCV MCH MCHC RDW Plt Count Lymph % (Auto) [place] % (Auto) Lymph # [place] # Baso # Seg Neutrophils % Seg Neuts % (Manual) Lymphocytes % (Manual) Monocytes % (Manual) Eosinophils % (Manual) Basophils % (Manual) Nucleated RBC % Seg Neutrophils # Seg Neutrophils # Man Lymphocytes # (Manual) Monocytes # (Manual) Eosinophils # (Manual) Basophils # (Manual) PT INR Fibrinogen dRVVT Confirm Interp Factor V Activity POC ABG pH POC ABG pCO2 POC ABG pO2 ABG pO2 ABG HCO3 ABG Base Excess ABG Hemoglobin Oxyhemoglobin Sodium Potassium Chloride Carbon Dioxide BUN Creatinine Glucose POC Glucose 204 H Lactic Acid Calcium Phosphorus Magnesium Direct Bilirubin AST ALT Alkaline Phosphatase Lactate Dehydrogenase Troponin T C-Reactive Protein Total Protein Albumin Prealbumin Triglycerides Cholesterol LDL Cholesterol Direct HDL Cholesterol Urine pH Urine WBC (Auto) 68.0 H Urine Creatinine 106.1 H Urine Total Protein Fluid Total Protein Vancomycin Trough Rheumatoid Factor Complement C4 Miscellaneous Test Crossmatch 09/07/16 09/07/16 09/07/16 04:50 06:19 06:39 WBC RBC Hgb Hct MCV MCH MCHC RDW Plt Count Lymph % (Auto) [place] % (Auto) Lymph # [place] # Baso # Seg Neutrophils % Seg Neuts % (Manual) Lymphocytes % (Manual) Monocytes % (Manual) Eosinophils % (Manual) Basophils % (Manual) Nucleated RBC % Seg Neutrophils # Seg Neutrophils # Man Lymphocytes # (Manual) Monocytes # (Manual) Eosinophils # (Manual) Basophils # (Manual) PT INR Fibrinogen dRVVT Confirm Interp Factor V Activity POC ABG pH 7.457 H POC ABG pCO2 32.1 L POC ABG pO2 76 L ABG pO2 ABG HCO3 ABG Base Excess ABG Hemoglobin Oxyhemoglobin Sodium 132 L Potassium Chloride 94.7 L Carbon Dioxide BUN 53 H Creatinine 2.9 H Glucose 151 H POC Glucose 149 H Lactic Acid Calcium Phosphorus Magnesium Direct Bilirubin AST ALT Alkaline Phosphatase Lactate Dehydrogenase Troponin T C-Reactive Protein Total Protein Albumin Prealbumin Triglycerides Cholesterol LDL Cholesterol Direct HDL Cholesterol Urine pH Urine WBC (Auto) Urine Creatinine Urine Total Protein Fluid Total Protein Vancomycin Trough Rheumatoid Factor Complement C4 Miscellaneous Test Crossmatch 09/07/16 09/07/16 09/07/16 09:20 11:43 11:43 WBC 19.4 H RBC Hgb 8.3 L Hct 26.4 L D MCV 72 L D MCH 22 L MCHC RDW 17.9 H Plt Count Lymph % (Auto) 8.5 L [place] % (Auto) Lymph # [place] # 1.0 H Baso # Seg Neutrophils % 85.8 H Seg Neuts % (Manual) Lymphocytes % (Manual) Monocytes % (Manual) Eosinophils % (Manual) Basophils % (Manual) Nucleated RBC % Seg Neutrophils # 16.6 H Seg Neutrophils # Man Lymphocytes # (Manual) Monocytes # (Manual) Eosinophils # (Manual) Basophils # (Manual) PT INR Fibrinogen dRVVT Confirm Interp Factor V Activity POC ABG pH POC ABG pCO2 POC ABG pO2 ABG pO2 ABG HCO3 ABG Base Excess ABG Hemoglobin Oxyhemoglobin Sodium 134 L Potassium Chloride 97.2 L Carbon Dioxide 20 L BUN 58 H Creatinine 2.9 H Glucose 147 H POC Glucose Lactic Acid Calcium Phosphorus 2.40 L Magnesium 2.40 H Direct Bilirubin AST ALT Alkaline Phosphatase Lactate Dehydrogenase Troponin T C-Reactive Protein Total Protein 5.8 L Albumin 2.2 L Prealbumin Triglycerides Cholesterol LDL Cholesterol Direct HDL Cholesterol Urine pH Urine WBC (Auto) Urine Creatinine Urine Total Protein Fluid Total Protein Vancomycin Trough Rheumatoid Factor Complement C4 58 H Miscellaneous Test Crossmatch 09/07/16 09/07/16 09/07/16 11:50 16:00 17:31 WBC RBC Hgb Hct MCV MCH MCHC RDW Plt Count Lymph % (Auto) [place] % (Auto) Lymph # [place] # Baso # Seg Neutrophils % Seg Neuts % (Manual) Lymphocytes % (Manual) Monocytes % (Manual) Eosinophils % (Manual) Basophils % (Manual) Nucleated RBC % Seg Neutrophils # Seg Neutrophils # Man Lymphocytes # (Manual) Monocytes # (Manual) Eosinophils # (Manual) Basophils # (Manual) PT INR Fibrinogen dRVVT Confirm Interp Factor V Activity POC ABG pH POC ABG pCO2 POC ABG pO2 158 H ABG pO2 ABG HCO3 ABG Base Excess ABG Hemoglobin Oxyhemoglobin Sodium Potassium Chloride Carbon Dioxide BUN Creatinine Glucose POC Glucose 175 H Lactic Acid Calcium Phosphorus Magnesium Direct Bilirubin AST ALT Alkaline Phosphatase Lactate Dehydrogenase Troponin T C-Reactive Protein Total Protein Albumin Prealbumin Triglycerides Cholesterol LDL Cholesterol Direct HDL Cholesterol Urine pH Urine WBC (Auto) Urine Creatinine 66.3 H Urine Total Protein Fluid Total Protein Vancomycin Trough Rheumatoid Factor Complement C4 Miscellaneous Test Crossmatch 09/07/16 09/08/16 09/08/16 23:50 05:46 06:18 WBC 17.8 H RBC 3.58 L Hgb 8.1 L Hct 25.5 L MCV 71 L MCH 23 L MCHC RDW 18.4 H Plt Count Lymph % (Auto) [place] % (Auto) Lymph # [place] # Baso # Seg Neutrophils % Seg Neuts % (Manual) 92.0 H Lymphocytes % (Manual) 6.0 L Monocytes % (Manual) Eosinophils % (Manual) Basophils % (Manual) Nucleated RBC % Seg Neutrophils # Seg Neutrophils # Man 16.4 H Lymphocytes # (Manual) 1.1 L Monocytes # (Manual) Eosinophils # (Manual) Basophils # (Manual) PT INR Fibrinogen dRVVT Confirm Interp Factor V Activity POC ABG pH POC ABG pCO2 34.3 L POC ABG pO2 71 L ABG pO2 ABG HCO3 ABG Base Excess ABG Hemoglobin Oxyhemoglobin Sodium Potassium Chloride Carbon Dioxide BUN Creatinine Glucose POC Glucose 216 H Lactic Acid Calcium Phosphorus Magnesium Direct Bilirubin AST ALT Alkaline Phosphatase Lactate Dehydrogenase Troponin T C-Reactive Protein Total Protein Albumin Prealbumin Triglycerides Cholesterol LDL Cholesterol Direct HDL Cholesterol Urine pH Urine WBC (Auto) Urine Creatinine Urine Total Protein Fluid Total Protein Vancomycin Trough Rheumatoid Factor Complement C4 Miscellaneous Test Crossmatch 09/08/16 09/08/16 09/08/16 06:18 06:51 10:55 WBC RBC Hgb Hct MCV MCH MCHC RDW Plt Count Lymph % (Auto) [place] % (Auto) Lymph # [place] # Baso # Seg Neutrophils % Seg Neuts % (Manual) Lymphocytes % (Manual) Monocytes % (Manual) Eosinophils % (Manual) Basophils % (Manual) Nucleated RBC % Seg Neutrophils # Seg Neutrophils # Man Lymphocytes # (Manual) Monocytes # (Manual) Eosinophils # (Manual) Basophils # (Manual) PT INR Fibrinogen dRVVT Confirm Interp Factor V Activity POC ABG pH POC ABG pCO2 POC ABG pO2 ABG pO2 ABG HCO3 ABG Base Excess ABG Hemoglobin Oxyhemoglobin Sodium 133 L Potassium Chloride 96.9 L Carbon Dioxide 20 L BUN 63 H Creatinine 2.7 H Glucose 195 H POC Glucose 204 H 169 H Lactic Acid Calcium Phosphorus Magnesium Direct Bilirubin AST ALT Alkaline Phosphatase Lactate Dehydrogenase Troponin T C-Reactive Protein Total Protein Albumin Prealbumin Triglycerides Cholesterol LDL Cholesterol Direct HDL Cholesterol Urine pH Urine WBC (Auto) Urine Creatinine Urine Total Protein Fluid Total Protein Vancomycin Trough Rheumatoid Factor Complement C4 Miscellaneous Test Crossmatch 09/08/16 09/08/16 09/08/16 11:48 11:48 11:48 WBC RBC Hgb Hct MCV MCH MCHC RDW Plt Count Lymph % (Auto) [place] % (Auto) Lymph # [place] # Baso # Seg Neutrophils % Seg Neuts % (Manual) Lymphocytes % (Manual) Monocytes % (Manual) Eosinophils % (Manual) Basophils % (Manual) Nucleated RBC % Seg Neutrophils # Seg Neutrophils # Man Lymphocytes # (Manual) Monocytes # (Manual) Eosinophils # (Manual) Basophils # (Manual) PT INR Fibrinogen 750 H dRVVT Confirm Interp Factor V Activity POC ABG pH POC ABG pCO2 POC ABG pO2 ABG pO2 ABG HCO3 ABG Base Excess ABG Hemoglobin Oxyhemoglobin Sodium Potassium Chloride Carbon Dioxide BUN Creatinine Glucose POC Glucose Lactic Acid Calcium Phosphorus Magnesium Direct Bilirubin AST ALT Alkaline Phosphatase Lactate Dehydrogenase Troponin T C-Reactive Protein 15.70 H Total Protein Albumin Prealbumin Triglycerides Cholesterol LDL Cholesterol Direct HDL Cholesterol Urine pH Urine WBC (Auto) Urine Creatinine Urine Total Protein Fluid Total Protein Vancomycin Trough Rheumatoid Factor 24 H Complement C4 Miscellaneous Test Crossmatch 09/08/16 09/08/16 09/09/16 15:35 18:25 00:24 WBC RBC Hgb Hct MCV MCH MCHC RDW Plt Count Lymph % (Auto) [place] % (Auto) Lymph # [place] # Baso # Seg Neutrophils % Seg Neuts % (Manual) Lymphocytes % (Manual) Monocytes % (Manual) Eosinophils % (Manual) Basophils % (Manual) Nucleated RBC % Seg Neutrophils # Seg Neutrophils # Man Lymphocytes # (Manual) Monocytes # (Manual) Eosinophils # (Manual) Basophils # (Manual) PT INR Fibrinogen dRVVT Confirm Interp Factor V Activity 182 H POC ABG pH POC ABG pCO2 POC ABG pO2 ABG pO2 ABG HCO3 ABG Base Excess ABG Hemoglobin Oxyhemoglobin Sodium Potassium Chloride Carbon Dioxide BUN Creatinine Glucose POC Glucose 184 H 216 H Lactic Acid Calcium Phosphorus Magnesium Direct Bilirubin AST ALT Alkaline Phosphatase Lactate Dehydrogenase Troponin T C-Reactive Protein Total Protein Albumin Prealbumin Triglycerides Cholesterol LDL Cholesterol Direct HDL Cholesterol Urine pH Urine WBC (Auto) Urine Creatinine Urine Total Protein Fluid Total Protein Vancomycin Trough Rheumatoid Factor Complement C4 Miscellaneous Test Crossmatch 09/09/16 09/09/16 09/09/16 03:00 03:00 04:04 WBC 27.9 H RBC Hgb 8.7 L Hct 28.1 L MCV 72 L MCH 22 L MCHC RDW 18.4 H Plt Count 485 H Lymph % (Auto) [place] % (Auto) Lymph # [place] # Baso # Seg Neutrophils % Seg Neuts % (Manual) 77.0 H Lymphocytes % (Manual) 9.0 L Monocytes % (Manual) Eosinophils % (Manual) Basophils % (Manual) Nucleated RBC % Seg Neutrophils # Seg Neutrophils # Man 21.5 H Lymphocytes # (Manual) Monocytes # (Manual) 2.0 H Eosinophils # (Manual) Basophils # (Manual) PT INR Fibrinogen dRVVT Confirm Interp Factor V Activity POC ABG pH POC ABG pCO2 POC ABG pO2 121 H ABG pO2 ABG HCO3 ABG Base Excess ABG Hemoglobin Oxyhemoglobin Sodium 135 L Potassium Chloride 96.3 L Carbon Dioxide 21 L BUN 83 H Creatinine 3.0 H Glucose 135 H POC Glucose Lactic Acid Calcium Phosphorus Magnesium Direct Bilirubin AST ALT Alkaline Phosphatase Lactate Dehydrogenase Troponin T C-Reactive Protein Total Protein Albumin Prealbumin Triglycerides Cholesterol LDL Cholesterol Direct HDL Cholesterol Urine pH Urine WBC (Auto) Urine Creatinine Urine Total Protein Fluid Total Protein Vancomycin Trough Rheumatoid Factor Complement C4 Miscellaneous Test Crossmatch 09/09/16 09/09/16 09/09/16 05:41 11:55 14:13 WBC RBC Hgb Hct MCV MCH MCHC RDW Plt Count Lymph % (Auto) [place] % (Auto) Lymph # [place] # Baso # Seg Neutrophils % Seg Neuts % (Manual) Lymphocytes % (Manual) Monocytes % (Manual) Eosinophils % (Manual) Basophils % (Manual) Nucleated RBC % Seg Neutrophils # Seg Neutrophils # Man Lymphocytes # (Manual) Monocytes # (Manual) Eosinophils # (Manual) Basophils # (Manual) PT INR Fibrinogen dRVVT Confirm Interp Factor V Activity POC ABG pH POC ABG pCO2 POC ABG pO2 ABG pO2 ABG HCO3 ABG Base Excess ABG Hemoglobin Oxyhemoglobin Sodium Potassium Chloride Carbon Dioxide BUN Creatinine Glucose POC Glucose 155 H 186 H Lactic Acid Calcium Phosphorus Magnesium Direct Bilirubin AST ALT Alkaline Phosphatase Lactate Dehydrogenase Troponin T C-Reactive Protein Total Protein Albumin Prealbumin Triglycerides Cholesterol LDL Cholesterol Direct HDL Cholesterol Urine pH Urine WBC (Auto) 25.0 H Urine Creatinine Urine Total Protein Fluid Total Protein Vancomycin Trough Rheumatoid Factor Complement C4 Miscellaneous Test Crossmatch 09/09/16 09/09/16 09/10/16 17:33 23:13 05:09 WBC RBC Hgb Hct MCV MCH MCHC RDW Plt Count Lymph % (Auto) [place] % (Auto) Lymph # [place] # Baso # Seg Neutrophils % Seg Neuts % (Manual) Lymphocytes % (Manual) Monocytes % (Manual) Eosinophils % (Manual) Basophils % (Manual) Nucleated RBC % Seg Neutrophils # Seg Neutrophils # Man Lymphocytes # (Manual) Monocytes # (Manual) Eosinophils # (Manual) Basophils # (Manual) PT INR Fibrinogen dRVVT Confirm Interp Factor V Activity POC ABG pH POC ABG pCO2 POC ABG pO2 74 L ABG pO2 ABG HCO3 ABG Base Excess ABG Hemoglobin Oxyhemoglobin Sodium Potassium Chloride Carbon Dioxide BUN Creatinine Glucose POC Glucose 211 H 215 H Lactic Acid Calcium Phosphorus Magnesium Direct Bilirubin AST ALT Alkaline Phosphatase Lactate Dehydrogenase Troponin T C-Reactive Protein Total Protein Albumin Prealbumin Triglycerides Cholesterol LDL Cholesterol Direct HDL Cholesterol Urine pH Urine WBC (Auto) Urine Creatinine Urine Total Protein Fluid Total Protein Vancomycin Trough Rheumatoid Factor Complement C4 Miscellaneous Test Crossmatch 09/10/16 09/10/16 09/10/16 05:17 05:17 11:31 WBC 15.8 H RBC 3.25 L Hgb 7.3 L Hct 22.9 L MCV 71 L MCH 23 L MCHC RDW 18.4 H Plt Count Lymph % (Auto) [place] % (Auto) Lymph # [place] # Baso # Seg Neutrophils % Seg Neuts % (Manual) 91.0 H Lymphocytes % (Manual) 4.0 L Monocytes % (Manual) Eosinophils % (Manual) Basophils % (Manual) Nucleated RBC % Seg Neutrophils # Seg Neutrophils # Man 14.4 H Lymphocytes # (Manual) 0.6 L Monocytes # (Manual) Eosinophils # (Manual) Basophils # (Manual) PT INR Fibrinogen dRVVT Confirm Interp Factor V Activity POC ABG pH POC ABG pCO2 POC ABG pO2 ABG pO2 ABG HCO3 ABG Base Excess ABG Hemoglobin Oxyhemoglobin Sodium Potassium Chloride Carbon Dioxide 21 L BUN 93 H Creatinine 2.9 H Glucose 146 H POC Glucose 188 H Lactic Acid Calcium 8.1 L Phosphorus Magnesium Direct Bilirubin AST ALT Alkaline Phosphatase Lactate Dehydrogenase Troponin T C-Reactive Protein Total Protein Albumin Prealbumin Triglycerides Cholesterol LDL Cholesterol Direct HDL Cholesterol Urine pH Urine WBC (Auto) Urine Creatinine Urine Total Protein Fluid Total Protein Vancomycin Trough Rheumatoid Factor Complement C4 Miscellaneous Test Crossmatch 09/10/16 09/10/16 09/10/16 13:17 17:20 23:32 WBC RBC Hgb Hct MCV MCH MCHC RDW Plt Count Lymph % (Auto) [place] % (Auto) Lymph # [place] # Baso # Seg Neutrophils % Seg Neuts % (Manual) Lymphocytes % (Manual) Monocytes % (Manual) Eosinophils % (Manual) Basophils % (Manual) Nucleated RBC % Seg Neutrophils # Seg Neutrophils # Man Lymphocytes # (Manual) Monocytes # (Manual) Eosinophils # (Manual) Basophils # (Manual) PT INR Fibrinogen dRVVT Confirm Interp Factor V Activity POC ABG pH POC ABG pCO2 POC ABG pO2 ABG pO2 ABG HCO3 ABG Base Excess ABG Hemoglobin Oxyhemoglobin Sodium Potassium Chloride Carbon Dioxide BUN Creatinine Glucose POC Glucose 199 H 186 H Lactic Acid Calcium Phosphorus Magnesium Direct Bilirubin AST ALT Alkaline Phosphatase Lactate Dehydrogenase Troponin T C-Reactive Protein Total Protein Albumin Prealbumin Triglycerides Cholesterol LDL Cholesterol Direct HDL Cholesterol Urine pH Urine WBC (Auto) Urine Creatinine Urine Total Protein Fluid Total Protein Vancomycin Trough Rheumatoid Factor Complement C4 Miscellaneous Test Crossmatch See Detail 09/11/16 09/11/16 09/11/16 05:10 05:10 05:17 WBC 28.4 H RBC Hgb 9.2 L Hct 29.3 L D MCV 73 L MCH 23 L MCHC RDW 18.9 H Plt Count 452 H Lymph % (Auto) [place] % (Auto) Lymph # [place] # Baso # Seg Neutrophils % Seg Neuts % (Manual) 89.5 H Lymphocytes % (Manual) 2.0 L Monocytes % (Manual) Eosinophils % (Manual) Basophils % (Manual) Nucleated RBC % Seg Neutrophils # Seg Neutrophils # Man 25.4 H Lymphocytes # (Manual) 0.6 L Monocytes # (Manual) 1.3 H Eosinophils # (Manual) Basophils # (Manual) PT INR Fibrinogen dRVVT Confirm Interp Factor V Activity POC ABG pH POC ABG pCO2 POC ABG pO2 ABG pO2 ABG HCO3 ABG Base Excess ABG Hemoglobin Oxyhemoglobin Sodium 136 L Potassium Chloride Carbon Dioxide 18 L BUN 107 H Creatinine 2.6 H Glucose 187 H POC Glucose 230 H Lactic Acid Calcium 8.3 L Phosphorus Magnesium Direct Bilirubin AST ALT Alkaline Phosphatase Lactate Dehydrogenase Troponin T C-Reactive Protein Total Protein Albumin Prealbumin Triglycerides Cholesterol LDL Cholesterol Direct HDL Cholesterol Urine pH Urine WBC (Auto) Urine Creatinine Urine Total Protein Fluid Total Protein Vancomycin Trough Rheumatoid Factor Complement C4 Miscellaneous Test Crossmatch 09/11/16 09/11/16 09/11/16 05:55 12:02 17:32 WBC RBC Hgb Hct MCV MCH MCHC RDW Plt Count Lymph % (Auto) [place] % (Auto) Lymph # [place] # Baso # Seg Neutrophils % Seg Neuts % (Manual) Lymphocytes % (Manual) Monocytes % (Manual) Eosinophils % (Manual) Basophils % (Manual) Nucleated RBC % Seg Neutrophils # Seg Neutrophils # Man Lymphocytes # (Manual) Monocytes # (Manual) Eosinophils # (Manual) Basophils # (Manual) PT INR Fibrinogen dRVVT Confirm Interp Factor V Activity POC ABG pH POC ABG pCO2 33.8 L POC ABG pO2 ABG pO2 ABG HCO3 ABG Base Excess ABG Hemoglobin Oxyhemoglobin Sodium Potassium Chloride Carbon Dioxide BUN Creatinine Glucose POC Glucose 191 H 239 H Lactic Acid Calcium Phosphorus Magnesium Direct Bilirubin AST ALT Alkaline Phosphatase Lactate Dehydrogenase Troponin T C-Reactive Protein Total Protein Albumin Prealbumin Triglycerides Cholesterol LDL Cholesterol Direct HDL Cholesterol Urine pH Urine WBC (Auto) Urine Creatinine Urine Total Protein Fluid Total Protein Vancomycin Trough Rheumatoid Factor Complement C4 Miscellaneous Test Crossmatch 09/11/16 09/12/16 09/12/16 23:52 05:09 05:32 WBC RBC Hgb Hct MCV MCH MCHC RDW Plt Count Lymph % (Auto) [place] % (Auto) Lymph # [place] # Baso # Seg Neutrophils % Seg Neuts % (Manual) Lymphocytes % (Manual) Monocytes % (Manual) Eosinophils % (Manual) Basophils % (Manual) Nucleated RBC % Seg Neutrophils # Seg Neutrophils # Man Lymphocytes # (Manual) Monocytes # (Manual) Eosinophils # (Manual) Basophils # (Manual) PT INR Fibrinogen dRVVT Confirm Interp Factor V Activity POC ABG pH POC ABG pCO2 34.6 L POC ABG pO2 ABG pO2 ABG HCO3 ABG Base Excess ABG Hemoglobin Oxyhemoglobin Sodium Potassium Chloride Carbon Dioxide BUN Creatinine Glucose POC Glucose 265 H 184 H Lactic Acid Calcium Phosphorus Magnesium Direct Bilirubin AST ALT Alkaline Phosphatase Lactate Dehydrogenase Troponin T C-Reactive Protein Total Protein Albumin Prealbumin Triglycerides Cholesterol LDL Cholesterol Direct HDL Cholesterol Urine pH Urine WBC (Auto) Urine Creatinine Urine Total Protein Fluid Total Protein Vancomycin Trough Rheumatoid Factor Complement C4 Miscellaneous Test Crossmatch 09/12/16 09/12/16 09/12/16 06:45 06:45 07:22 WBC 31.7 H RBC 3.54 L Hgb 8.3 L Hct 25.9 L MCV 73 L MCH 23 L MCHC RDW 18.9 H Plt Count Lymph % (Auto) [place] % (Auto) Lymph # [place] # Baso # Seg Neutrophils % Seg Neuts % (Manual) 88.5 H Lymphocytes % (Manual) 4.5 L Monocytes % (Manual) Eosinophils % (Manual) Basophils % (Manual) Nucleated RBC % Seg Neutrophils # Seg Neutrophils # Man 28.1 H Lymphocytes # (Manual) Monocytes # (Manual) 1.0 H Eosinophils # (Manual) Basophils # (Manual) PT INR Fibrinogen dRVVT Confirm Interp Factor V Activity POC ABG pH POC ABG pCO2 POC ABG pO2 ABG pO2 ABG HCO3 ABG Base Excess ABG Hemoglobin Oxyhemoglobin Sodium Potassium Chloride Carbon Dioxide 20 L BUN 115 H Creatinine 2.7 H Glucose 165 H POC Glucose Lactic Acid Calcium 8.0 L Phosphorus Magnesium Direct Bilirubin AST ALT Alkaline Phosphatase Lactate Dehydrogenase Troponin T C-Reactive Protein Total Protein Albumin Prealbumin Triglycerides 217 H Cholesterol LDL Cholesterol Direct HDL Cholesterol Urine pH Urine WBC (Auto) Urine Creatinine Urine Total Protein Fluid Total Protein Vancomycin Trough Rheumatoid Factor Complement C4 Miscellaneous Test Crossmatch 09/12/16 09/12/16 09/12/16 07:22 09:59 12:21 WBC RBC Hgb Hct MCV MCH MCHC RDW Plt Count Lymph % (Auto) [place] % (Auto) Lymph # [place] # Baso # Seg Neutrophils % Seg Neuts % (Manual) Lymphocytes % (Manual) Monocytes % (Manual) Eosinophils % (Manual) Basophils % (Manual) Nucleated RBC % Seg Neutrophils # Seg Neutrophils # Man Lymphocytes # (Manual) Monocytes # (Manual) Eosinophils # (Manual) Basophils # (Manual) PT INR Fibrinogen dRVVT Confirm Interp Positive H Factor V Activity POC ABG pH POC ABG pCO2 POC ABG pO2 ABG pO2 ABG HCO3 ABG Base Excess ABG Hemoglobin Oxyhemoglobin Sodium Potassium Chloride Carbon Dioxide BUN Creatinine Glucose POC Glucose 224 H Lactic Acid Calcium Phosphorus Magnesium Direct Bilirubin AST ALT Alkaline Phosphatase Lactate Dehydrogenase Troponin T C-Reactive Protein 1.70 H Total Protein Albumin Prealbumin Triglycerides Cholesterol LDL Cholesterol Direct HDL Cholesterol Urine pH Urine WBC (Auto) Urine Creatinine Urine Total Protein Fluid Total Protein Vancomycin Trough Rheumatoid Factor Complement C4 Miscellaneous Test Crossmatch 09/12/16 09/12/16 09/13/16 16:51 23:28 04:00 WBC 45.0 H* RBC Hgb 9.4 L Hct MCV 75 L MCH 23 L MCHC RDW 19.0 H Plt Count 470 H Lymph % (Auto) [place] % (Auto) Lymph # [place] # Baso # Seg Neutrophils % Seg Neuts % (Manual) 89.0 H Lymphocytes % (Manual) 5.0 L Monocytes % (Manual) Eosinophils % (Manual) Basophils % (Manual) Nucleated RBC % Seg Neutrophils # Seg Neutrophils # Man 40.1 H Lymphocytes # (Manual) Monocytes # (Manual) Eosinophils # (Manual) Basophils # (Manual) PT INR Fibrinogen dRVVT Confirm Interp Factor V Activity POC ABG pH POC ABG pCO2 POC ABG pO2 ABG pO2 ABG HCO3 ABG Base Excess ABG Hemoglobin Oxyhemoglobin Sodium Potassium Chloride Carbon Dioxide BUN Creatinine Glucose POC Glucose 169 H 150 H Lactic Acid Calcium Phosphorus Magnesium Direct Bilirubin AST ALT Alkaline Phosphatase Lactate Dehydrogenase Troponin T C-Reactive Protein Total Protein Albumin Prealbumin Triglycerides Cholesterol LDL Cholesterol Direct HDL Cholesterol Urine pH Urine WBC (Auto) Urine Creatinine Urine Total Protein Fluid Total Protein Vancomycin Trough Rheumatoid Factor Complement C4 Miscellaneous Test Crossmatch 09/13/16 09/13/16 09/13/16 04:00 11:26 17:31 WBC RBC Hgb Hct MCV MCH MCHC RDW Plt Count Lymph % (Auto) [place] % (Auto) Lymph # [place] # Baso # Seg Neutrophils % Seg Neuts % (Manual) Lymphocytes % (Manual) Monocytes % (Manual) Eosinophils % (Manual) Basophils % (Manual) Nucleated RBC % Seg Neutrophils # Seg Neutrophils # Man Lymphocytes # (Manual) Monocytes # (Manual) Eosinophils # (Manual) Basophils # (Manual) PT INR Fibrinogen dRVVT Confirm Interp Factor V Activity POC ABG pH POC ABG pCO2 POC ABG pO2 ABG pO2 ABG HCO3 ABG Base Excess ABG Hemoglobin Oxyhemoglobin Sodium Potassium Chloride Carbon Dioxide 20 L BUN 116 H Creatinine 3.0 H Glucose 172 H POC Glucose 140 H 183 H Lactic Acid Calcium Phosphorus Magnesium Direct Bilirubin AST ALT Alkaline Phosphatase Lactate Dehydrogenase Troponin T C-Reactive Protein Total Protein 6.2 L Albumin 2.9 L Prealbumin Triglycerides Cholesterol LDL Cholesterol Direct HDL Cholesterol Urine pH Urine WBC (Auto) Urine Creatinine Urine Total Protein Fluid Total Protein Vancomycin Trough Rheumatoid Factor Complement C4 Miscellaneous Test Crossmatch 09/13/16 09/14/16 09/14/16 23:23 04:06 04:07 WBC 29.4 H RBC Hgb 8.9 L Hct 27.3 L MCV 75 L MCH 24 L MCHC RDW 19.1 H Plt Count Lymph % (Auto) [place] % (Auto) Lymph # [place] # Baso # Seg Neutrophils % Seg Neuts % (Manual) 84.0 H Lymphocytes % (Manual) 6.0 L Monocytes % (Manual) 9.0 H Eosinophils % (Manual) Basophils % (Manual) Nucleated RBC % Seg Neutrophils # Seg Neutrophils # Man 24.7 H Lymphocytes # (Manual) Monocytes # (Manual) 2.6 H Eosinophils # (Manual) Basophils # (Manual) PT INR Fibrinogen dRVVT Confirm Interp Factor V Activity POC ABG pH 7.342 L POC ABG pCO2 POC ABG pO2 116 H ABG pO2 ABG HCO3 ABG Base Excess ABG Hemoglobin Oxyhemoglobin Sodium Potassium Chloride Carbon Dioxide BUN Creatinine Glucose POC Glucose 154 H Lactic Acid Calcium Phosphorus Magnesium Direct Bilirubin AST ALT Alkaline Phosphatase Lactate Dehydrogenase Troponin T C-Reactive Protein Total Protein Albumin Prealbumin Triglycerides Cholesterol LDL Cholesterol Direct HDL Cholesterol Urine pH Urine WBC (Auto) Urine Creatinine Urine Total Protein Fluid Total Protein Vancomycin Trough Rheumatoid Factor Complement C4 Miscellaneous Test Crossmatch 09/14/16 09/14/16 09/14/16 04:07 05:29 12:19 WBC RBC Hgb Hct MCV MCH MCHC RDW Plt Count Lymph % (Auto) [place] % (Auto) Lymph # [place] # Baso # Seg Neutrophils % Seg Neuts % (Manual) Lymphocytes % (Manual) Monocytes % (Manual) Eosinophils % (Manual) Basophils % (Manual) Nucleated RBC % Seg Neutrophils # Seg Neutrophils # Man Lymphocytes # (Manual) Monocytes # (Manual) Eosinophils # (Manual) Basophils # (Manual) PT INR Fibrinogen dRVVT Confirm Interp Factor V Activity POC ABG pH POC ABG pCO2 POC ABG pO2 ABG pO2 ABG HCO3 ABG Base Excess ABG Hemoglobin Oxyhemoglobin Sodium 136 L Potassium Chloride Carbon Dioxide 18 L BUN 121 H Creatinine 2.8 H Glucose 214 H POC Glucose 239 H 181 H Lactic Acid Calcium Phosphorus Magnesium Direct Bilirubin AST ALT Alkaline Phosphatase Lactate Dehydrogenase Troponin T C-Reactive Protein Total Protein Albumin Prealbumin Triglycerides Cholesterol LDL Cholesterol Direct HDL Cholesterol Urine pH Urine WBC (Auto) Urine Creatinine Urine Total Protein Fluid Total Protein Vancomycin Trough Rheumatoid Factor Complement C4 Miscellaneous Test Crossmatch 09/14/16 09/14/16 09/15/16 18:12 23:37 05:00 WBC 26.1 H RBC 3.05 L Hgb 7.2 L Hct 22.9 L MCV 75 L MCH 24 L MCHC RDW 19.0 H Plt Count Lymph % (Auto) [place] % (Auto) Lymph # [place] # Baso # Seg Neutrophils % Seg Neuts % (Manual) Lymphocytes % (Manual) Monocytes % (Manual) Eosinophils % (Manual) Basophils % (Manual) Nucleated RBC % Seg Neutrophils # Seg Neutrophils # Man Lymphocytes # (Manual) Monocytes # (Manual) Eosinophils # (Manual) Basophils # (Manual) PT INR Fibrinogen dRVVT Confirm Interp Factor V Activity POC ABG pH POC ABG pCO2 POC ABG pO2 ABG pO2 ABG HCO3 ABG Base Excess ABG Hemoglobin Oxyhemoglobin Sodium Potassium Chloride Carbon Dioxide BUN Creatinine Glucose POC Glucose 266 H 154 H Lactic Acid Calcium Phosphorus Magnesium Direct Bilirubin AST ALT Alkaline Phosphatase Lactate Dehydrogenase Troponin T C-Reactive Protein Total Protein Albumin Prealbumin Triglycerides Cholesterol LDL Cholesterol Direct HDL Cholesterol Urine pH Urine WBC (Auto) Urine Creatinine Urine Total Protein Fluid Total Protein Vancomycin Trough Rheumatoid Factor Complement C4 Miscellaneous Test Crossmatch 09/15/16 09/15/16 09/15/16 05:00 05:17 12:45 WBC RBC Hgb Hct MCV MCH MCHC RDW Plt Count Lymph % (Auto) [place] % (Auto) Lymph # [place] # Baso # Seg Neutrophils % Seg Neuts % (Manual) Lymphocytes % (Manual) Monocytes % (Manual) Eosinophils % (Manual) Basophils % (Manual) Nucleated RBC % Seg Neutrophils # Seg Neutrophils # Man Lymphocytes # (Manual) Monocytes # (Manual) Eosinophils # (Manual) Basophils # (Manual) PT INR Fibrinogen dRVVT Confirm Interp Factor V Activity POC ABG pH POC ABG pCO2 POC ABG pO2 ABG pO2 ABG HCO3 ABG Base Excess ABG Hemoglobin Oxyhemoglobin Sodium Potassium 5.2 H Chloride Carbon Dioxide 18 L BUN 139 H Creatinine 3.7 H Glucose 227 H POC Glucose 226 H 244 H Lactic Acid Calcium 8.3 L Phosphorus Magnesium Direct Bilirubin AST ALT Alkaline Phosphatase Lactate Dehydrogenase Troponin T C-Reactive Protein Total Protein Albumin Prealbumin Triglycerides Cholesterol LDL Cholesterol Direct HDL Cholesterol Urine pH Urine WBC (Auto) Urine Creatinine Urine Total Protein Fluid Total Protein Vancomycin Trough Rheumatoid Factor Complement C4 Miscellaneous Test Crossmatch 09/15/16 09/15/16 09/15/16 14:32 17:33 23:35 WBC RBC Hgb Hct MCV MCH MCHC RDW Plt Count Lymph % (Auto) [place] % (Auto) Lymph # [place] # Baso # Seg Neutrophils % Seg Neuts % (Manual) Lymphocytes % (Manual) Monocytes % (Manual) Eosinophils % (Manual) Basophils % (Manual) Nucleated RBC % Seg Neutrophils # Seg Neutrophils # Man Lymphocytes # (Manual) Monocytes # (Manual) Eosinophils # (Manual) Basophils # (Manual) PT INR Fibrinogen dRVVT Confirm Interp Factor V Activity POC ABG pH POC ABG pCO2 27.7 L POC ABG pO2 120 H ABG pO2 ABG HCO3 ABG Base Excess ABG Hemoglobin Oxyhemoglobin Sodium Potassium Chloride Carbon Dioxide BUN Creatinine Glucose POC Glucose 232 H 167 H Lactic Acid Calcium Phosphorus Magnesium Direct Bilirubin AST ALT Alkaline Phosphatase Lactate Dehydrogenase Troponin T C-Reactive Protein Total Protein Albumin Prealbumin Triglycerides Cholesterol LDL Cholesterol Direct HDL Cholesterol Urine pH Urine WBC (Auto) Urine Creatinine Urine Total Protein Fluid Total Protein Vancomycin Trough Rheumatoid Factor Complement C4 Miscellaneous Test Crossmatch 09/16/16 09/16/16 09/16/16 03:58 10:27 10:27 WBC 19.0 H RBC 2.77 L Hgb 6.5 L Hct 20.9 L MCV 76 L MCH 23 L MCHC RDW 19.3 H Plt Count Lymph % (Auto) 11.0 L [place] % (Auto) Lymph # [place] # 1.1 H Baso # Seg Neutrophils % 82.5 H Seg Neuts % (Manual) Lymphocytes % (Manual) Monocytes % (Manual) Eosinophils % (Manual) Basophils % (Manual) Nucleated RBC % Seg Neutrophils # 15.7 H Seg Neutrophils # Man Lymphocytes # (Manual) Monocytes # (Manual) Eosinophils # (Manual) Basophils # (Manual) PT INR Fibrinogen dRVVT Confirm Interp Factor V Activity POC ABG pH POC ABG pCO2 POC ABG pO2 ABG pO2 ABG HCO3 ABG Base Excess ABG Hemoglobin Oxyhemoglobin Sodium Potassium Chloride 109.3 H Carbon Dioxide 18 L BUN 139 H Creatinine 4.1 H Glucose 144 H POC Glucose 146 H Lactic Acid Calcium 8.1 L Phosphorus Magnesium Direct Bilirubin AST ALT Alkaline Phosphatase Lactate Dehydrogenase Troponin T C-Reactive Protein Total Protein Albumin Prealbumin Triglycerides Cholesterol LDL Cholesterol Direct HDL Cholesterol Urine pH Urine WBC (Auto) Urine Creatinine Urine Total Protein Fluid Total Protein Vancomycin Trough Rheumatoid Factor Complement C4 Miscellaneous Test Crossmatch 09/16/16 09/16/16 09/16/16 12:04 12:10 13:55 WBC RBC Hgb Hct MCV MCH MCHC RDW Plt Count Lymph % (Auto) [place] % (Auto) Lymph # [place] # Baso # Seg Neutrophils % Seg Neuts % (Manual) Lymphocytes % (Manual) Monocytes % (Manual) Eosinophils % (Manual) Basophils % (Manual) Nucleated RBC % Seg Neutrophils # Seg Neutrophils # Man Lymphocytes # (Manual) Monocytes # (Manual) Eosinophils # (Manual) Basophils # (Manual) PT INR Fibrinogen dRVVT Confirm Interp Factor V Activity POC ABG pH POC ABG pCO2 32.9 L POC ABG pO2 ABG pO2 ABG HCO3 ABG Base Excess ABG Hemoglobin Oxyhemoglobin Sodium Potassium Chloride Carbon Dioxide BUN Creatinine Glucose POC Glucose 185 H Lactic Acid Calcium Phosphorus Magnesium Direct Bilirubin AST ALT Alkaline Phosphatase Lactate Dehydrogenase Troponin T C-Reactive Protein Total Protein Albumin Prealbumin Triglycerides Cholesterol LDL Cholesterol Direct HDL Cholesterol Urine pH Urine WBC (Auto) Urine Creatinine Urine Total Protein Fluid Total Protein Vancomycin Trough Rheumatoid Factor Complement C4 Miscellaneous Test Crossmatch See Detail 09/16/16 09/16/16 09/16/16 17:55 19:19 23:48 WBC RBC Hgb Hct MCV MCH MCHC RDW Plt Count Lymph % (Auto) [place] % (Auto) Lymph # [place] # Baso # Seg Neutrophils % Seg Neuts % (Manual) Lymphocytes % (Manual) Monocytes % (Manual) Eosinophils % (Manual) Basophils % (Manual) Nucleated RBC % Seg Neutrophils # Seg Neutrophils # Man Lymphocytes # (Manual) Monocytes # (Manual) Eosinophils # (Manual) Basophils # (Manual) PT INR Fibrinogen dRVVT Confirm Interp Factor V Activity POC ABG pH POC ABG pCO2 POC ABG pO2 ABG pO2 ABG HCO3 ABG Base Excess ABG Hemoglobin Oxyhemoglobin Sodium Potassium Chloride Carbon Dioxide BUN Creatinine Glucose POC Glucose 222 H 107 H Lactic Acid Calcium Phosphorus Magnesium Direct Bilirubin AST ALT Alkaline Phosphatase Lactate Dehydrogenase Troponin T C-Reactive Protein Total Protein Albumin Prealbumin Triglycerides Cholesterol LDL Cholesterol Direct HDL Cholesterol Urine pH Urine WBC (Auto) Urine Creatinine 47.4 H Urine Total Protein 16 H Fluid Total Protein Vancomycin Trough Rheumatoid Factor Complement C4 Miscellaneous Test Crossmatch 09/17/16 09/17/16 09/17/16 03:45 03:45 04:55 WBC 19.6 H RBC 3.41 L Hgb 8.5 L Hct 26.7 L MCV 78 L MCH 25 L MCHC RDW 19.9 H Plt Count Lymph % (Auto) 9.3 L [place] % (Auto) Lymph # [place] # 1.2 H Baso # Seg Neutrophils % 83.9 H Seg Neuts % (Manual) Lymphocytes % (Manual) Monocytes % (Manual) Eosinophils % (Manual) Basophils % (Manual) Nucleated RBC % Seg Neutrophils # 16.4 H Seg Neutrophils # Man Lymphocytes # (Manual) Monocytes # (Manual) Eosinophils # (Manual) Basophils # (Manual) PT INR Fibrinogen dRVVT Confirm Interp Factor V Activity POC ABG pH POC ABG pCO2 POC ABG pO2 ABG pO2 ABG HCO3 ABG Base Excess ABG Hemoglobin Oxyhemoglobin Sodium 146 H Potassium 5.1 H Chloride 110.9 H Carbon Dioxide 16 L BUN 146 H Creatinine 4.0 H Glucose 108 H POC Glucose 133 H Lactic Acid Calcium Phosphorus Magnesium 3.00 H Direct Bilirubin AST ALT Alkaline Phosphatase Lactate Dehydrogenase Troponin T C-Reactive Protein Total Protein Albumin Prealbumin Triglycerides Cholesterol LDL Cholesterol Direct HDL Cholesterol Urine pH Urine WBC (Auto) Urine Creatinine Urine Total Protein Fluid Total Protein Vancomycin Trough Rheumatoid Factor Complement C4 Miscellaneous Test Crossmatch 09/17/16 09/17/16 09/17/16 11:15 17:33 23:47 WBC RBC Hgb Hct MCV MCH MCHC RDW Plt Count Lymph % (Auto) [place] % (Auto) Lymph # [place] # Baso # Seg Neutrophils % Seg Neuts % (Manual) Lymphocytes % (Manual) Monocytes % (Manual) Eosinophils % (Manual) Basophils % (Manual) Nucleated RBC % Seg Neutrophils # Seg Neutrophils # Man Lymphocytes # (Manual) Monocytes # (Manual) Eosinophils # (Manual) Basophils # (Manual) PT INR Fibrinogen dRVVT Confirm Interp Factor V Activity POC ABG pH POC ABG pCO2 POC ABG pO2 ABG pO2 ABG HCO3 ABG Base Excess ABG Hemoglobin Oxyhemoglobin Sodium Potassium Chloride Carbon Dioxide BUN Creatinine Glucose POC Glucose 176 H 246 H 148 H Lactic Acid Calcium Phosphorus Magnesium Direct Bilirubin AST ALT Alkaline Phosphatase Lactate Dehydrogenase Troponin T C-Reactive Protein Total Protein Albumin Prealbumin Triglycerides Cholesterol LDL Cholesterol Direct HDL Cholesterol Urine pH Urine WBC (Auto) Urine Creatinine Urine Total Protein Fluid Total Protein Vancomycin Trough Rheumatoid Factor Complement C4 Miscellaneous Test Crossmatch 09/18/16 09/18/16 09/18/16 05:33 08:31 08:31 WBC 18.0 H RBC 3.17 L Hgb 9.0 L Hct 25.7 L MCV MCH MCHC 35 H RDW 20.4 H Plt Count Lymph % (Auto) [place] % (Auto) Lymph # [place] # Baso # Seg Neutrophils % Seg Neuts % (Manual) Lymphocytes % (Manual) Monocytes % (Manual) Eosinophils % (Manual) Basophils % (Manual) Nucleated RBC % Seg Neutrophils # Seg Neutrophils # Man Lymphocytes # (Manual) Monocytes # (Manual) Eosinophils # (Manual) Basophils # (Manual) PT INR Fibrinogen dRVVT Confirm Interp Factor V Activity POC ABG pH POC ABG pCO2 POC ABG pO2 ABG pO2 ABG HCO3 ABG Base Excess ABG Hemoglobin Oxyhemoglobin Sodium Potassium Chloride Carbon Dioxide 15 L BUN 124 H Creatinine 3.8 H Glucose POC Glucose 120 H Lactic Acid Calcium 8.1 L Phosphorus Magnesium Direct Bilirubin AST ALT Alkaline Phosphatase Lactate Dehydrogenase Troponin T C-Reactive Protein Total Protein Albumin Prealbumin Triglycerides Cholesterol LDL Cholesterol Direct HDL Cholesterol Urine pH Urine WBC (Auto) Urine Creatinine Urine Total Protein Fluid Total Protein Vancomycin Trough Rheumatoid Factor Complement C4 Miscellaneous Test Crossmatch 09/18/16 09/18/16 09/18/16 12:03 15:34 17:50 WBC RBC Hgb Hct MCV MCH MCHC RDW Plt Count Lymph % (Auto) [place] % (Auto) Lymph # [place] # Baso # Seg Neutrophils % Seg Neuts % (Manual) Lymphocytes % (Manual) Monocytes % (Manual) Eosinophils % (Manual) Basophils % (Manual) Nucleated RBC % Seg Neutrophils # Seg Neutrophils # Man Lymphocytes # (Manual) Monocytes # (Manual) Eosinophils # (Manual) Basophils # (Manual) PT INR Fibrinogen dRVVT Confirm Interp Factor V Activity POC ABG pH POC ABG pCO2 25.7 L POC ABG pO2 66 L ABG pO2 ABG HCO3 ABG Base Excess ABG Hemoglobin Oxyhemoglobin Sodium Potassium Chloride Carbon Dioxide BUN Creatinine Glucose POC Glucose 156 H 220 H Lactic Acid Calcium Phosphorus Magnesium Direct Bilirubin AST ALT Alkaline Phosphatase Lactate Dehydrogenase Troponin T C-Reactive Protein Total Protein Albumin Prealbumin Triglycerides Cholesterol LDL Cholesterol Direct HDL Cholesterol Urine pH Urine WBC (Auto) Urine Creatinine Urine Total Protein Fluid Total Protein Vancomycin Trough Rheumatoid Factor Complement C4 Miscellaneous Test Crossmatch 09/19/16 09/19/16 09/19/16 06:21 09:50 09:50 WBC 17.1 H RBC 3.49 L Hgb 9.0 L Hct 28.1 L MCV MCH 26 L MCHC RDW 20.8 H Plt Count Lymph % (Auto) 11.5 L [place] % (Auto) 7.5 H Lymph # [place] # 1.3 H Baso # Seg Neutrophils % 79.8 H Seg Neuts % (Manual) Lymphocytes % (Manual) Monocytes % (Manual) Eosinophils % (Manual) Basophils % (Manual) Nucleated RBC % Seg Neutrophils # 13.7 H Seg Neutrophils # Man Lymphocytes # (Manual) Monocytes # (Manual) Eosinophils # (Manual) Basophils # (Manual) PT INR Fibrinogen dRVVT Confirm Interp Factor V Activity POC ABG pH POC ABG pCO2 POC ABG pO2 ABG pO2 ABG HCO3 ABG Base Excess ABG Hemoglobin Oxyhemoglobin Sodium Potassium Chloride 108.6 H Carbon Dioxide 15 L BUN 125 H Creatinine 4.1 H Glucose 124 H POC Glucose 119 H Lactic Acid Calcium Phosphorus Magnesium Direct Bilirubin AST ALT Alkaline Phosphatase Lactate Dehydrogenase Troponin T C-Reactive Protein Total Protein Albumin Prealbumin Triglycerides Cholesterol LDL Cholesterol Direct HDL Cholesterol Urine pH Urine WBC (Auto) Urine Creatinine Urine Total Protein Fluid Total Protein Vancomycin Trough Rheumatoid Factor Complement C4 Miscellaneous Test Crossmatch 09/19/16 09/19/16 09/19/16 11:25 17:53 23:36 WBC RBC Hgb Hct MCV MCH MCHC RDW Plt Count Lymph % (Auto) [place] % (Auto) Lymph # [place] # Baso # Seg Neutrophils % Seg Neuts % (Manual) Lymphocytes % (Manual) Monocytes % (Manual) Eosinophils % (Manual) Basophils % (Manual) Nucleated RBC % Seg Neutrophils # Seg Neutrophils # Man Lymphocytes # (Manual) Monocytes # (Manual) Eosinophils # (Manual) Basophils # (Manual) PT INR Fibrinogen dRVVT Confirm Interp Factor V Activity POC ABG pH POC ABG pCO2 POC ABG pO2 ABG pO2 ABG HCO3 ABG Base Excess ABG Hemoglobin Oxyhemoglobin Sodium Potassium Chloride Carbon Dioxide BUN Creatinine Glucose POC Glucose 160 H 245 H 121 H Lactic Acid Calcium Phosphorus Magnesium Direct Bilirubin AST ALT Alkaline Phosphatase Lactate Dehydrogenase Troponin T C-Reactive Protein Total Protein Albumin Prealbumin Triglycerides Cholesterol LDL Cholesterol Direct HDL Cholesterol Urine pH Urine WBC (Auto) Urine Creatinine Urine Total Protein Fluid Total Protein Vancomycin Trough Rheumatoid Factor Complement C4 Miscellaneous Test Crossmatch 09/20/16 09/20/16 09/20/16 04:10 04:10 04:10 WBC 17.0 H RBC 3.21 L Hgb 8.2 L Hct 25.5 L MCV MCH 26 L MCHC RDW 20.9 H Plt Count Lymph % (Auto) [place] % (Auto) Lymph # [place] # Baso # Seg Neutrophils % Seg Neuts % (Manual) Lymphocytes % (Manual) Monocytes % (Manual) Eosinophils % (Manual) Basophils % (Manual) Nucleated RBC % Seg Neutrophils # Seg Neutrophils # Man Lymphocytes # (Manual) Monocytes # (Manual) Eosinophils # (Manual) Basophils # (Manual) PT INR Fibrinogen dRVVT Confirm Interp Factor V Activity POC ABG pH POC ABG pCO2 POC ABG pO2 ABG pO2 ABG HCO3 ABG Base Excess ABG Hemoglobin Oxyhemoglobin Sodium Potassium Chloride 111.0 H Carbon Dioxide 16 L BUN 129 H Creatinine 3.7 H Glucose 115 H POC Glucose Lactic Acid Calcium 8.2 L Phosphorus Magnesium Direct Bilirubin AST ALT Alkaline Phosphatase Lactate Dehydrogenase Troponin T C-Reactive Protein Total Protein Albumin Prealbumin Triglycerides 243 H Cholesterol LDL Cholesterol Direct HDL Cholesterol Urine pH Urine WBC (Auto) Urine Creatinine Urine Total Protein Fluid Total Protein Vancomycin Trough Rheumatoid Factor Complement C4 Miscellaneous Test Crossmatch 09/20/16 09/20/16 09/20/16 05:40 11:52 16:50 WBC RBC Hgb Hct MCV MCH MCHC RDW Plt Count Lymph % (Auto) [place] % (Auto) Lymph # [place] # Baso # Seg Neutrophils % Seg Neuts % (Manual) Lymphocytes % (Manual) Monocytes % (Manual) Eosinophils % (Manual) Basophils % (Manual) Nucleated RBC % Seg Neutrophils # Seg Neutrophils # Man Lymphocytes # (Manual) Monocytes # (Manual) Eosinophils # (Manual) Basophils # (Manual) PT INR Fibrinogen dRVVT Confirm Interp Factor V Activity POC ABG pH POC ABG pCO2 POC ABG pO2 ABG pO2 ABG HCO3 ABG Base Excess ABG Hemoglobin Oxyhemoglobin Sodium Potassium Chloride Carbon Dioxide BUN Creatinine Glucose POC Glucose 131 H 183 H 236 H Lactic Acid Calcium Phosphorus Magnesium Direct Bilirubin AST ALT Alkaline Phosphatase Lactate Dehydrogenase Troponin T C-Reactive Protein Total Protein Albumin Prealbumin Triglycerides Cholesterol LDL Cholesterol Direct HDL Cholesterol Urine pH Urine WBC (Auto) Urine Creatinine Urine Total Protein Fluid Total Protein Vancomycin Trough Rheumatoid Factor Complement C4 Miscellaneous Test Crossmatch 09/20/16 09/21/16 09/21/16 23:51 03:30 04:44 WBC RBC Hgb Hct MCV MCH MCHC RDW Plt Count Lymph % (Auto) [place] % (Auto) Lymph # [place] # Baso # Seg Neutrophils % Seg Neuts % (Manual) Lymphocytes % (Manual) Monocytes % (Manual) Eosinophils % (Manual) Basophils % (Manual) Nucleated RBC % Seg Neutrophils # Seg Neutrophils # Man Lymphocytes # (Manual) Monocytes # (Manual) Eosinophils # (Manual) Basophils # (Manual) PT INR Fibrinogen dRVVT Confirm Interp Factor V Activity POC ABG pH POC ABG pCO2 POC ABG pO2 ABG pO2 ABG HCO3 ABG Base Excess ABG Hemoglobin Oxyhemoglobin Sodium Potassium Chloride Carbon Dioxide BUN Creatinine Glucose POC Glucose 114 H 141 H Lactic Acid Calcium Phosphorus Magnesium 2.70 H Direct Bilirubin AST ALT Alkaline Phosphatase Lactate Dehydrogenase Troponin T C-Reactive Protein Total Protein Albumin Prealbumin Triglycerides Cholesterol LDL Cholesterol Direct HDL Cholesterol Urine pH Urine WBC (Auto) Urine Creatinine Urine Total Protein Fluid Total Protein Vancomycin Trough Rheumatoid Factor Complement C4 Miscellaneous Test Crossmatch 09/21/16 09/21/16 09/21/16 07:45 07:45 10:01 WBC 13.8 H RBC 2.94 L Hgb 7.5 L Hct 23.5 L MCV MCH 26 L MCHC RDW 21.2 H Plt Count Lymph % (Auto) 6.9 L [place] % (Auto) 9.4 H Lymph # 0.9 L [place] # 1.3 H Baso # Seg Neutrophils % 83.2 H Seg Neuts % (Manual) Lymphocytes % (Manual) Monocytes % (Manual) Eosinophils % (Manual) Basophils % (Manual) Nucleated RBC % Seg Neutrophils # 11.5 H Seg Neutrophils # Man Lymphocytes # (Manual) Monocytes # (Manual) Eosinophils # (Manual) Basophils # (Manual) PT INR Fibrinogen dRVVT Confirm Interp Factor V Activity POC ABG pH 7.308 L POC ABG pCO2 31.9 L POC ABG pO2 148 H ABG pO2 ABG HCO3 ABG Base Excess ABG Hemoglobin Oxyhemoglobin Sodium 147 H Potassium Chloride 114.2 H Carbon Dioxide 15 L BUN 120 H Creatinine 3.9 H Glucose 156 H POC Glucose Lactic Acid Calcium 8.2 L Phosphorus Magnesium Direct Bilirubin AST ALT Alkaline Phosphatase Lactate Dehydrogenase Troponin T C-Reactive Protein Total Protein Albumin Prealbumin Triglycerides Cholesterol LDL Cholesterol Direct HDL Cholesterol Urine pH Urine WBC (Auto) Urine Creatinine Urine Total Protein Fluid Total Protein Vancomycin Trough Rheumatoid Factor Complement C4 Miscellaneous Test Crossmatch 09/21/16 09/21/16 09/21/16 12:00 12:03 13:00 WBC RBC Hgb Hct MCV MCH MCHC RDW Plt Count Lymph % (Auto) [place] % (Auto) Lymph # [place] # Baso # Seg Neutrophils % Seg Neuts % (Manual) Lymphocytes % (Manual) Monocytes % (Manual) Eosinophils % (Manual) Basophils % (Manual) Nucleated RBC % Seg Neutrophils # Seg Neutrophils # Man Lymphocytes # (Manual) Monocytes # (Manual) Eosinophils # (Manual) Basophils # (Manual) PT INR Fibrinogen dRVVT Confirm Interp Factor V Activity POC ABG pH POC ABG pCO2 POC ABG pO2 ABG pO2 ABG HCO3 ABG Base Excess ABG Hemoglobin Oxyhemoglobin Sodium Potassium Chloride Carbon Dioxide BUN Creatinine Glucose POC Glucose 163 H Lactic Acid Calcium Phosphorus Magnesium Direct Bilirubin AST ALT Alkaline Phosphatase Lactate Dehydrogenase Troponin T C-Reactive Protein Total Protein Albumin Prealbumin Triglycerides Cholesterol LDL Cholesterol Direct HDL Cholesterol Urine pH Urine WBC (Auto) Urine Creatinine 54.8 H Urine Total Protein Fluid Total Protein Vancomycin Trough 2.3 L Rheumatoid Factor Complement C4 Miscellaneous Test Crossmatch 09/21/16 09/21/16 09/22/16 16:51 23:17 06:27 WBC RBC Hgb Hct MCV MCH MCHC RDW Plt Count Lymph % (Auto) [place] % (Auto) Lymph # [place] # Baso # Seg Neutrophils % Seg Neuts % (Manual) Lymphocytes % (Manual) Monocytes % (Manual) Eosinophils % (Manual) Basophils % (Manual) Nucleated RBC % Seg Neutrophils # Seg Neutrophils # Man Lymphocytes # (Manual) Monocytes # (Manual) Eosinophils # (Manual) Basophils # (Manual) PT INR Fibrinogen dRVVT Confirm Interp Factor V Activity POC ABG pH POC ABG pCO2 POC ABG pO2 ABG pO2 ABG HCO3 ABG Base Excess ABG Hemoglobin Oxyhemoglobin Sodium Potassium Chloride Carbon Dioxide BUN Creatinine Glucose POC Glucose 206 H 114 H 115 H Lactic Acid Calcium Phosphorus Magnesium Direct Bilirubin AST ALT Alkaline Phosphatase Lactate Dehydrogenase Troponin T C-Reactive Protein Total Protein Albumin Prealbumin Triglycerides Cholesterol LDL Cholesterol Direct HDL Cholesterol Urine pH Urine WBC (Auto) Urine Creatinine Urine Total Protein Fluid Total Protein Vancomycin Trough Rheumatoid Factor Complement C4 Miscellaneous Test Crossmatch 09/22/16 09/22/16 09/22/16 07:50 07:50 12:00 WBC 17.8 H RBC 3.04 L Hgb 8.0 L Hct 24.7 L MCV MCH 26 L MCHC RDW 21.6 H Plt Count Lymph % (Auto) [place] % (Auto) Lymph # [place] # Baso # Seg Neutrophils % Seg Neuts % (Manual) Lymphocytes % (Manual) Monocytes % (Manual) Eosinophils % (Manual) Basophils % (Manual) Nucleated RBC % Seg Neutrophils # Seg Neutrophils # Man Lymphocytes # (Manual) Monocytes # (Manual) Eosinophils # (Manual) Basophils # (Manual) PT INR Fibrinogen dRVVT Confirm Interp Factor V Activity POC ABG pH POC ABG pCO2 POC ABG pO2 ABG pO2 ABG HCO3 ABG Base Excess ABG Hemoglobin Oxyhemoglobin Sodium 150 H Potassium Chloride 118.2 H Carbon Dioxide 14 L BUN 111 H Creatinine 3.7 H Glucose 157 H POC Glucose 183 H Lactic Acid Calcium Phosphorus Magnesium Direct Bilirubin AST ALT Alkaline Phosphatase Lactate Dehydrogenase Troponin T C-Reactive Protein Total Protein Albumin Prealbumin Triglycerides Cholesterol LDL Cholesterol Direct HDL Cholesterol Urine pH Urine WBC (Auto) Urine Creatinine Urine Total Protein Fluid Total Protein Vancomycin Trough Rheumatoid Factor Complement C4 Miscellaneous Test Crossmatch 09/22/16 09/22/16 09/23/16 17:29 23:10 05:00 WBC 19.2 H RBC 3.13 L Hgb 8.0 L Hct 25.2 L MCV MCH 26 L MCHC RDW 22.1 H Plt Count Lymph % (Auto) [place] % (Auto) Lymph # [place] # Baso # Seg Neutrophils % Seg Neuts % (Manual) 92.0 H Lymphocytes % (Manual) 3.0 L Monocytes % (Manual) Eosinophils % (Manual) Basophils % (Manual) Nucleated RBC % Seg Neutrophils # Seg Neutrophils # Man 17.7 H Lymphocytes # (Manual) 0.6 L Monocytes # (Manual) Eosinophils # (Manual) Basophils # (Manual) PT INR Fibrinogen dRVVT Confirm Interp Factor V Activity POC ABG pH POC ABG pCO2 POC ABG pO2 ABG pO2 ABG HCO3 ABG Base Excess ABG Hemoglobin Oxyhemoglobin Sodium Potassium Chloride Carbon Dioxide BUN Creatinine Glucose POC Glucose 197 H 169 H Lactic Acid Calcium Phosphorus Magnesium Direct Bilirubin AST ALT Alkaline Phosphatase Lactate Dehydrogenase Troponin T C-Reactive Protein Total Protein Albumin Prealbumin Triglycerides Cholesterol LDL Cholesterol Direct HDL Cholesterol Urine pH Urine WBC (Auto) Urine Creatinine Urine Total Protein Fluid Total Protein Vancomycin Trough Rheumatoid Factor Complement C4 Miscellaneous Test Crossmatch 09/23/16 09/23/16 09/23/16 05:00 05:00 05:10 WBC RBC Hgb Hct MCV MCH MCHC RDW Plt Count Lymph % (Auto) [place] % (Auto) Lymph # [place] # Baso # Seg Neutrophils % Seg Neuts % (Manual) Lymphocytes % (Manual) Monocytes % (Manual) Eosinophils % (Manual) Basophils % (Manual) Nucleated RBC % Seg Neutrophils # Seg Neutrophils # Man Lymphocytes # (Manual) Monocytes # (Manual) Eosinophils # (Manual) Basophils # (Manual) PT INR Fibrinogen dRVVT Confirm Interp Factor V Activity POC ABG pH POC ABG pCO2 POC ABG pO2 ABG pO2 ABG HCO3 ABG Base Excess ABG Hemoglobin Oxyhemoglobin Sodium 147 H Potassium 3.2 L Chloride 115.7 H Carbon Dioxide 13 L BUN 111 H Creatinine 3.8 H Glucose 194 H POC Glucose 188 H Lactic Acid Calcium 7.3 L D Phosphorus Magnesium Direct Bilirubin AST ALT Alkaline Phosphatase Lactate Dehydrogenase Troponin T C-Reactive Protein 3.20 H Total Protein Albumin Prealbumin Triglycerides Cholesterol LDL Cholesterol Direct HDL Cholesterol Urine pH Urine WBC (Auto) Urine Creatinine Urine Total Protein Fluid Total Protein Vancomycin Trough Rheumatoid Factor Complement C4 Miscellaneous Test Crossmatch 09/23/16 09/23/16 09/23/16 11:37 12:29 18:01 WBC RBC Hgb Hct MCV MCH MCHC RDW Plt Count Lymph % (Auto) [place] % (Auto) Lymph # [place] # Baso # Seg Neutrophils % Seg Neuts % (Manual) Lymphocytes % (Manual) Monocytes % (Manual) Eosinophils % (Manual) Basophils % (Manual) Nucleated RBC % Seg Neutrophils # Seg Neutrophils # Man Lymphocytes # (Manual) Monocytes # (Manual) Eosinophils # (Manual) Basophils # (Manual) PT INR Fibrinogen dRVVT Confirm Interp Factor V Activity POC ABG pH POC ABG pCO2 18.9 L POC ABG pO2 143 H ABG pO2 ABG HCO3 ABG Base Excess ABG Hemoglobin Oxyhemoglobin Sodium Potassium Chloride Carbon Dioxide BUN Creatinine Glucose POC Glucose 153 H 108 H Lactic Acid Calcium Phosphorus Magnesium Direct Bilirubin AST ALT Alkaline Phosphatase Lactate Dehydrogenase Troponin T C-Reactive Protein Total Protein Albumin Prealbumin Triglycerides Cholesterol LDL Cholesterol Direct HDL Cholesterol Urine pH Urine WBC (Auto) Urine Creatinine Urine Total Protein Fluid Total Protein Vancomycin Trough Rheumatoid Factor Complement C4 Miscellaneous Test Crossmatch 09/23/16 09/23/16 09/24/16 21:19 23:43 05:16 WBC RBC Hgb Hct MCV MCH MCHC RDW Plt Count Lymph % (Auto) [place] % (Auto) Lymph # [place] # Baso # Seg Neutrophils % Seg Neuts % (Manual) Lymphocytes % (Manual) Monocytes % (Manual) Eosinophils % (Manual) Basophils % (Manual) Nucleated RBC % Seg Neutrophils # Seg Neutrophils # Man Lymphocytes # (Manual) Monocytes # (Manual) Eosinophils # (Manual) Basophils # (Manual) PT INR Fibrinogen dRVVT Confirm Interp Factor V Activity POC ABG pH POC ABG pCO2 17.3 L POC ABG pO2 112 H ABG pO2 ABG HCO3 ABG Base Excess ABG Hemoglobin Oxyhemoglobin Sodium Potassium Chloride Carbon Dioxide BUN Creatinine Glucose POC Glucose 143 H 164 H Lactic Acid Calcium Phosphorus Magnesium Direct Bilirubin AST ALT Alkaline Phosphatase Lactate Dehydrogenase Troponin T C-Reactive Protein Total Protein Albumin Prealbumin Triglycerides Cholesterol LDL Cholesterol Direct HDL Cholesterol Urine pH Urine WBC (Auto) Urine Creatinine Urine Total Protein Fluid Total Protein Vancomycin Trough Rheumatoid Factor Complement C4 Miscellaneous Test Crossmatch 09/24/16 09/24/16 09/24/16 05:21 11:58 17:06 WBC RBC Hgb Hct MCV MCH MCHC RDW Plt Count Lymph % (Auto) [place] % (Auto) Lymph # [place] # Baso # Seg Neutrophils % Seg Neuts % (Manual) Lymphocytes % (Manual) Monocytes % (Manual) Eosinophils % (Manual) Basophils % (Manual) Nucleated RBC % Seg Neutrophils # Seg Neutrophils # Man Lymphocytes # (Manual) Monocytes # (Manual) Eosinophils # (Manual) Basophils # (Manual) PT INR Fibrinogen dRVVT Confirm Interp Factor V Activity POC ABG pH POC ABG pCO2 POC ABG pO2 ABG pO2 ABG HCO3 ABG Base Excess ABG Hemoglobin Oxyhemoglobin Sodium Potassium Chloride Carbon Dioxide 10 L BUN 103 H Creatinine 4.3 H Glucose 163 H POC Glucose 173 H 167 H Lactic Acid Calcium 6.5 L Phosphorus Magnesium Direct Bilirubin AST ALT Alkaline Phosphatase Lactate Dehydrogenase Troponin T C-Reactive Protein Total Protein Albumin Prealbumin Triglycerides Cholesterol LDL Cholesterol Direct HDL Cholesterol Urine pH Urine WBC (Auto) Urine Creatinine Urine Total Protein Fluid Total Protein Vancomycin Trough Rheumatoid Factor Complement C4 Miscellaneous Test Crossmatch 09/24/16 09/24/16 09/24/16 20:15 21:02 23:48 WBC RBC Hgb Hct MCV MCH MCHC RDW Plt Count Lymph % (Auto) [place] % (Auto) Lymph # [place] # Baso # Seg Neutrophils % Seg Neuts % (Manual) Lymphocytes % (Manual) Monocytes % (Manual) Eosinophils % (Manual) Basophils % (Manual) Nucleated RBC % Seg Neutrophils # Seg Neutrophils # Man Lymphocytes # (Manual) Monocytes # (Manual) Eosinophils # (Manual) Basophils # (Manual) PT INR Fibrinogen dRVVT Confirm Interp Factor V Activity POC ABG pH 7.288 L POC ABG pCO2 30.2 L 21.5 L POC ABG pO2 32 L 39 L ABG pO2 ABG HCO3 ABG Base Excess ABG Hemoglobin Oxyhemoglobin Sodium Potassium Chloride Carbon Dioxide BUN Creatinine Glucose POC Glucose 109 H Lactic Acid Calcium Phosphorus Magnesium Direct Bilirubin AST ALT Alkaline Phosphatase Lactate Dehydrogenase Troponin T C-Reactive Protein Total Protein Albumin Prealbumin Triglycerides Cholesterol LDL Cholesterol Direct HDL Cholesterol Urine pH Urine WBC (Auto) Urine Creatinine Urine Total Protein Fluid Total Protein Vancomycin Trough Rheumatoid Factor Complement C4 Miscellaneous Test Crossmatch 09/25/16 09/25/16 09/25/16 04:20 04:20 04:20 WBC RBC 2.58 L Hgb 7.0 L Hct 21.0 L MCV MCH 27 L MCHC RDW 23.8 H Plt Count Lymph % (Auto) [place] % (Auto) Lymph # [place] # Baso # Seg Neutrophils % Seg Neuts % (Manual) Lymphocytes % (Manual) 12.0 L Monocytes % (Manual) Eosinophils % (Manual) 7.0 H Basophils % (Manual) 2.0 H Nucleated RBC % Seg Neutrophils # Seg Neutrophils # Man Lymphocytes # (Manual) 0.9 L Monocytes # (Manual) Eosinophils # (Manual) 0.5 H Basophils # (Manual) PT INR Fibrinogen dRVVT Confirm Interp Factor V Activity POC ABG pH POC ABG pCO2 POC ABG pO2 ABG pO2 ABG HCO3 ABG Base Excess ABG Hemoglobin Oxyhemoglobin Sodium Potassium Chloride Carbon Dioxide 15 L BUN 72 H Creatinine 3.8 H Glucose POC Glucose Lactic Acid Calcium 6.0 L Phosphorus 4.60 H Magnesium 1.60 L Direct Bilirubin AST ALT Alkaline Phosphatase Lactate Dehydrogenase Troponin T C-Reactive Protein Total Protein Albumin Prealbumin Triglycerides Cholesterol LDL Cholesterol Direct HDL Cholesterol Urine pH Urine WBC (Auto) Urine Creatinine Urine Total Protein Fluid Total Protein Vancomycin Trough Rheumatoid Factor Complement C4 Miscellaneous Test Crossmatch 09/25/16 09/25/16 09/25/16 04:57 08:02 10:30 WBC RBC Hgb Hct MCV MCH MCHC RDW Plt Count Lymph % (Auto) [place] % (Auto) Lymph # [place] # Baso # Seg Neutrophils % Seg Neuts % (Manual) Lymphocytes % (Manual) Monocytes % (Manual) Eosinophils % (Manual) Basophils % (Manual) Nucleated RBC % Seg Neutrophils # Seg Neutrophils # Man Lymphocytes # (Manual) Monocytes # (Manual) Eosinophils # (Manual) Basophils # (Manual) PT INR Fibrinogen dRVVT Confirm Interp Factor V Activity POC ABG pH POC ABG pCO2 24.7 L POC ABG pO2 152 H ABG pO2 ABG HCO3 ABG Base Excess ABG Hemoglobin Oxyhemoglobin Sodium Potassium Chloride Carbon Dioxide BUN Creatinine Glucose POC Glucose 113 H Lactic Acid Calcium Phosphorus Magnesium Direct Bilirubin AST ALT Alkaline Phosphatase Lactate Dehydrogenase Troponin T C-Reactive Protein Total Protein Albumin Prealbumin Triglycerides Cholesterol LDL Cholesterol Direct HDL Cholesterol Urine pH Urine WBC (Auto) Urine Creatinine Urine Total Protein Fluid Total Protein Vancomycin Trough Rheumatoid Factor Complement C4 Miscellaneous Test Crossmatch See Detail 09/25/16 09/25/16 09/25/16 12:05 17:44 23:47 WBC RBC Hgb Hct MCV MCH MCHC RDW Plt Count Lymph % (Auto) [place] % (Auto) Lymph # [place] # Baso # Seg Neutrophils % Seg Neuts % (Manual) Lymphocytes % (Manual) Monocytes % (Manual) Eosinophils % (Manual) Basophils % (Manual) Nucleated RBC % Seg Neutrophils # Seg Neutrophils # Man Lymphocytes # (Manual) Monocytes # (Manual) Eosinophils # (Manual) Basophils # (Manual) PT INR Fibrinogen dRVVT Confirm Interp Factor V Activity POC ABG pH POC ABG pCO2 POC ABG pO2 ABG pO2 ABG HCO3 ABG Base Excess ABG Hemoglobin Oxyhemoglobin Sodium Potassium Chloride Carbon Dioxide BUN Creatinine Glucose POC Glucose 117 H 119 H 150 H Lactic Acid Calcium Phosphorus Magnesium Direct Bilirubin AST ALT Alkaline Phosphatase Lactate Dehydrogenase Troponin T C-Reactive Protein Total Protein Albumin Prealbumin Triglycerides Cholesterol LDL Cholesterol Direct HDL Cholesterol Urine pH Urine WBC (Auto) Urine Creatinine Urine Total Protein Fluid Total Protein Vancomycin Trough Rheumatoid Factor Complement C4 Miscellaneous Test Crossmatch 09/26/16 09/26/16 09/26/16 04:25 04:25 04:25 WBC RBC 2.65 L Hgb 7.4 L Hct 21.6 L MCV MCH MCHC RDW 22.5 H Plt Count Lymph % (Auto) [place] % (Auto) Lymph # [place] # Baso # Seg Neutrophils % Seg Neuts % (Manual) Lymphocytes % (Manual) 6.0 L Monocytes % (Manual) Eosinophils % (Manual) 11.0 H Basophils % (Manual) Nucleated RBC % Seg Neutrophils # Seg Neutrophils # Man Lymphocytes # (Manual) 0.4 L Monocytes # (Manual) Eosinophils # (Manual) 0.6 H Basophils # (Manual) PT INR Fibrinogen dRVVT Confirm Interp Factor V Activity POC ABG pH POC ABG pCO2 POC ABG pO2 ABG pO2 ABG HCO3 ABG Base Excess ABG Hemoglobin Oxyhemoglobin Sodium Potassium Chloride 97.0 L Carbon Dioxide 19 L BUN 43 H Creatinine 2.6 H Glucose 130 H POC Glucose Lactic Acid 4.40 H* Calcium 6.7 L Phosphorus Magnesium Direct Bilirubin AST ALT Alkaline Phosphatase Lactate Dehydrogenase Troponin T C-Reactive Protein Total Protein Albumin Prealbumin Triglycerides Cholesterol LDL Cholesterol Direct HDL Cholesterol Urine pH Urine WBC (Auto) Urine Creatinine Urine Total Protein Fluid Total Protein Vancomycin Trough Rheumatoid Factor Complement C4 Miscellaneous Test Crossmatch 09/26/16 09/26/16 09/26/16 05:20 11:44 12:12 WBC RBC Hgb Hct MCV MCH MCHC RDW Plt Count Lymph % (Auto) [place] % (Auto) Lymph # [place] # Baso # Seg Neutrophils % Seg Neuts % (Manual) Lymphocytes % (Manual) Monocytes % (Manual) Eosinophils % (Manual) Basophils % (Manual) Nucleated RBC % Seg Neutrophils # Seg Neutrophils # Man Lymphocytes # (Manual) Monocytes # (Manual) Eosinophils # (Manual) Basophils # (Manual) PT INR Fibrinogen dRVVT Confirm Interp Factor V Activity POC ABG pH POC ABG pCO2 27.0 L POC ABG pO2 69 L ABG pO2 ABG HCO3 ABG Base Excess ABG Hemoglobin Oxyhemoglobin Sodium Potassium Chloride Carbon Dioxide BUN Creatinine Glucose POC Glucose 121 H 128 H Lactic Acid Calcium Phosphorus Magnesium Direct Bilirubin AST ALT Alkaline Phosphatase Lactate Dehydrogenase Troponin T C-Reactive Protein Total Protein Albumin Prealbumin Triglycerides Cholesterol LDL Cholesterol Direct HDL Cholesterol Urine pH Urine WBC (Auto) Urine Creatinine Urine Total Protein Fluid Total Protein Vancomycin Trough Rheumatoid Factor Complement C4 Miscellaneous Test Crossmatch 09/26/16 09/26/16 09/27/16 18:31 23:40 08:20 WBC RBC Hgb Hct MCV MCH MCHC RDW Plt Count Lymph % (Auto) [place] % (Auto) Lymph # [place] # Baso # Seg Neutrophils % Seg Neuts % (Manual) Lymphocytes % (Manual) Monocytes % (Manual) Eosinophils % (Manual) Basophils % (Manual) Nucleated RBC % Seg Neutrophils # Seg Neutrophils # Man Lymphocytes # (Manual) Monocytes # (Manual) Eosinophils # (Manual) Basophils # (Manual) PT INR Fibrinogen dRVVT Confirm Interp Factor V Activity POC ABG pH POC ABG pCO2 POC ABG pO2 ABG pO2 ABG HCO3 ABG Base Excess ABG Hemoglobin Oxyhemoglobin Sodium Potassium Chloride Carbon Dioxide BUN Creatinine Glucose POC Glucose 120 H 133 H Lactic Acid 4.10 H* Calcium Phosphorus Magnesium Direct Bilirubin AST ALT Alkaline Phosphatase Lactate Dehydrogenase Troponin T C-Reactive Protein Total Protein Albumin Prealbumin Triglycerides Cholesterol LDL Cholesterol Direct HDL Cholesterol Urine pH Urine WBC (Auto) Urine Creatinine Urine Total Protein Fluid Total Protein Vancomycin Trough Rheumatoid Factor Complement C4 Miscellaneous Test Crossmatch 09/27/16 09/27/16 09/27/16 11:23 15:00 18:15 WBC RBC Hgb Hct MCV MCH MCHC RDW Plt Count Lymph % (Auto) [place] % (Auto) Lymph # [place] # Baso # Seg Neutrophils % Seg Neuts % (Manual) Lymphocytes % (Manual) Monocytes % (Manual) Eosinophils % (Manual) Basophils % (Manual) Nucleated RBC % Seg Neutrophils # Seg Neutrophils # Man Lymphocytes # (Manual) Monocytes # (Manual) Eosinophils # (Manual) Basophils # (Manual) PT INR Fibrinogen dRVVT Confirm Interp Factor V Activity POC ABG pH 7.459 H POC ABG pCO2 27.1 L POC ABG pO2 140 H ABG pO2 ABG HCO3 ABG Base Excess ABG Hemoglobin Oxyhemoglobin Sodium Potassium Chloride Carbon Dioxide BUN Creatinine Glucose POC Glucose 114 H 127 H Lactic Acid Calcium Phosphorus Magnesium Direct Bilirubin AST ALT Alkaline Phosphatase Lactate Dehydrogenase Troponin T C-Reactive Protein Total Protein Albumin Prealbumin Triglycerides Cholesterol LDL Cholesterol Direct HDL Cholesterol Urine pH Urine WBC (Auto) Urine Creatinine Urine Total Protein Fluid Total Protein Vancomycin Trough Rheumatoid Factor Complement C4 Miscellaneous Test Crossmatch 09/27/16 09/27/16 09/28/16 Unknown Unknown 03:45 WBC RBC 2.49 L Hgb 6.8 L Hct 20.7 L MCV MCH 27 L MCHC RDW 22.1 H Plt Count Lymph % (Auto) [place] % (Auto) Lymph # [place] # Baso # Seg Neutrophils % Seg Neuts % (Manual) 32.0 L Lymphocytes % (Manual) 12.0 L Monocytes % (Manual) 11.0 H Eosinophils % (Manual) 10.0 H Basophils % (Manual) Nucleated RBC % Seg Neutrophils # Seg Neutrophils # Man Lymphocytes # (Manual) 1.0 L Monocytes # (Manual) 0.9 H Eosinophils # (Manual) 0.8 H Basophils # (Manual) PT INR Fibrinogen dRVVT Confirm Interp Factor V Activity POC ABG pH POC ABG pCO2 POC ABG pO2 ABG pO2 ABG HCO3 ABG Base Excess ABG Hemoglobin Oxyhemoglobin Sodium 135 L 135 L Potassium 3.5 L Chloride 93.6 L 94.4 L Carbon Dioxide 17 L 21 L BUN 45 H 28 H Creatinine 3.3 H 2.5 H Glucose 106 H POC Glucose Lactic Acid Calcium 7.3 L 7.1 L Phosphorus Magnesium Direct Bilirubin AST ALT Alkaline Phosphatase Lactate Dehydrogenase Troponin T C-Reactive Protein Total Protein Albumin Prealbumin Triglycerides Cholesterol LDL Cholesterol Direct HDL Cholesterol Urine pH Urine WBC (Auto) Urine Creatinine Urine Total Protein Fluid Total Protein Vancomycin Trough Rheumatoid Factor Complement C4 Miscellaneous Test Crossmatch 09/28/16 09/28/16 09/28/16 03:45 07:25 11:58 WBC 13.3 H RBC 3.01 L Hgb 8.4 L Hct 25.0 L MCV MCH MCHC RDW 20.5 H Plt Count 128 L Lymph % (Auto) [place] % (Auto) Lymph # [place] # Baso # Seg Neutrophils % Seg Neuts % (Manual) Lymphocytes % (Manual) 7.0 L Monocytes % (Manual) Eosinophils % (Manual) 6.0 H Basophils % (Manual) Nucleated RBC % Seg Neutrophils # Seg Neutrophils # Man Lymphocytes # (Manual) 0.9 L Monocytes # (Manual) Eosinophils # (Manual) 0.8 H Basophils # (Manual) PT INR Fibrinogen dRVVT Confirm Interp Factor V Activity POC ABG pH POC ABG pCO2 POC ABG pO2 ABG pO2 ABG HCO3 ABG Base Excess ABG Hemoglobin Oxyhemoglobin Sodium Potassium Chloride Carbon Dioxide BUN Creatinine Glucose POC Glucose 121 H Lactic Acid 4.50 H* Calcium Phosphorus Magnesium Direct Bilirubin AST ALT Alkaline Phosphatase Lactate Dehydrogenase Troponin T C-Reactive Protein Total Protein Albumin Prealbumin Triglycerides Cholesterol LDL Cholesterol Direct HDL Cholesterol Urine pH Urine WBC (Auto) Urine Creatinine Urine Total Protein Fluid Total Protein Vancomycin Trough Rheumatoid Factor Complement C4 Miscellaneous Test Crossmatch 09/29/16 09/29/16 09/29/16 06:45 06:45 06:45 WBC 14.9 H RBC 2.74 L Hgb 7.6 L Hct 23.2 L MCV MCH MCHC RDW 20.5 H Plt Count 81 L Lymph % (Auto) [place] % (Auto) Lymph # [place] # Baso # Seg Neutrophils % Seg Neuts % (Manual) 81.0 H Lymphocytes % (Manual) 4.0 L Monocytes % (Manual) Eosinophils % (Manual) Basophils % (Manual) Nucleated RBC % Seg Neutrophils # Seg Neutrophils # Man 12.1 H Lymphocytes # (Manual) 0.6 L Monocytes # (Manual) Eosinophils # (Manual) Basophils # (Manual) PT INR Fibrinogen dRVVT Confirm Interp Factor V Activity POC ABG pH POC ABG pCO2 POC ABG pO2 ABG pO2 ABG HCO3 ABG Base Excess ABG Hemoglobin Oxyhemoglobin Sodium 133 L Potassium 3.4 L Chloride 92.5 L Carbon Dioxide 21 L BUN 33 H Creatinine 3.0 H Glucose POC Glucose Lactic Acid Calcium 6.6 L Phosphorus Magnesium 1.40 L Direct Bilirubin 0.9 H AST ALT Alkaline Phosphatase Lactate Dehydrogenase Troponin T C-Reactive Protein Total Protein 4.3 L Albumin 1.3 L Prealbumin Triglycerides Cholesterol LDL Cholesterol Direct HDL Cholesterol Urine pH Urine WBC (Auto) Urine Creatinine Urine Total Protein Fluid Total Protein Vancomycin Trough Rheumatoid Factor Complement C4 Miscellaneous Test Crossmatch 09/29/16 09/29/16 09/30/16 17:52 20:12 00:07 WBC RBC Hgb Hct MCV MCH MCHC RDW Plt Count Lymph % (Auto) [place] % (Auto) Lymph # [place] # Baso # Seg Neutrophils % Seg Neuts % (Manual) Lymphocytes % (Manual) Monocytes % (Manual) Eosinophils % (Manual) Basophils % (Manual) Nucleated RBC % Seg Neutrophils # Seg Neutrophils # Man Lymphocytes # (Manual) Monocytes # (Manual) Eosinophils # (Manual) Basophils # (Manual) PT INR Fibrinogen dRVVT Confirm Interp Factor V Activity POC ABG pH POC ABG pCO2 POC ABG pO2 ABG pO2 ABG HCO3 ABG Base Excess ABG Hemoglobin Oxyhemoglobin Sodium Potassium Chloride Carbon Dioxide BUN Creatinine Glucose POC Glucose 50 L 51 L Lactic Acid Calcium Phosphorus Magnesium Direct Bilirubin AST ALT Alkaline Phosphatase Lactate Dehydrogenase Troponin T 0.204 H* C-Reactive Protein Total Protein Albumin Prealbumin Triglycerides Cholesterol 31 L LDL Cholesterol Direct 4 L HDL Cholesterol 3 L Urine pH Urine WBC (Auto) Urine Creatinine Urine Total Protein Fluid Total Protein Vancomycin Trough Rheumatoid Factor Complement C4 Miscellaneous Test Crossmatch 09/30/16 09/30/16 09/30/16 01:30 05:15 06:10 WBC RBC Hgb Hct MCV MCH MCHC RDW Plt Count Lymph % (Auto) [place] % (Auto) Lymph # [place] # Baso # Seg Neutrophils % Seg Neuts % (Manual) Lymphocytes % (Manual) Monocytes % (Manual) Eosinophils % (Manual) Basophils % (Manual) Nucleated RBC % Seg Neutrophils # Seg Neutrophils # Man Lymphocytes # (Manual) Monocytes # (Manual) Eosinophils # (Manual) Basophils # (Manual) PT INR Fibrinogen dRVVT Confirm Interp Factor V Activity POC ABG pH POC ABG pCO2 POC ABG pO2 ABG pO2 ABG HCO3 ABG Base Excess ABG Hemoglobin Oxyhemoglobin Sodium 133 L Potassium 3.2 L Chloride 93.2 L Carbon Dioxide 19 L BUN 36 H Creatinine 3.2 H Glucose 104 H POC Glucose 167 H 146 H Lactic Acid Calcium 6.4 L Phosphorus Magnesium 1.60 L Direct Bilirubin AST ALT Alkaline Phosphatase Lactate Dehydrogenase Troponin T C-Reactive Protein Total Protein Albumin Prealbumin Triglycerides Cholesterol LDL Cholesterol Direct HDL Cholesterol Urine pH Urine WBC (Auto) Urine Creatinine Urine Total Protein Fluid Total Protein Vancomycin Trough Rheumatoid Factor Complement C4 Miscellaneous Test Crossmatch 09/30/16 09/30/16 09/30/16 11:26 13:39 18:38 WBC RBC Hgb Hct MCV MCH MCHC RDW Plt Count Lymph % (Auto) [place] % (Auto) Lymph # [place] # Baso # Seg Neutrophils % Seg Neuts % (Manual) Lymphocytes % (Manual) Monocytes % (Manual) Eosinophils % (Manual) Basophils % (Manual) Nucleated RBC % Seg Neutrophils # Seg Neutrophils # Man Lymphocytes # (Manual) Monocytes # (Manual) Eosinophils # (Manual) Basophils # (Manual) PT INR Fibrinogen dRVVT Confirm Interp Factor V Activity POC ABG pH 7.479 H POC ABG pCO2 29.8 L POC ABG pO2 117 H ABG pO2 ABG HCO3 ABG Base Excess ABG Hemoglobin Oxyhemoglobin Sodium Potassium Chloride Carbon Dioxide BUN Creatinine Glucose POC Glucose 140 H 122 H Lactic Acid Calcium Phosphorus Magnesium Direct Bilirubin AST ALT Alkaline Phosphatase Lactate Dehydrogenase Troponin T C-Reactive Protein Total Protein Albumin Prealbumin Triglycerides Cholesterol LDL Cholesterol Direct HDL Cholesterol Urine pH Urine WBC (Auto) Urine Creatinine Urine Total Protein Fluid Total Protein Vancomycin Trough Rheumatoid Factor Complement C4 Miscellaneous Test Crossmatch 10/01/16 10/01/16 10/01/16 06:00 06:00 12:37 WBC 12.6 H RBC 2.75 L Hgb 7.3 L Hct 23.3 L MCV MCH 27 L MCHC RDW 20.6 H Plt Count 72 L Lymph % (Auto) [place] % (Auto) Lymph # [place] # Baso # Seg Neutrophils % Seg Neuts % (Manual) 31.0 L Lymphocytes % (Manual) 8.0 L Monocytes % (Manual) Eosinophils % (Manual) Basophils % (Manual) Nucleated RBC % 3.0 H Seg Neutrophils # Seg Neutrophils # Man Lymphocytes # (Manual) 1.0 L Monocytes # (Manual) Eosinophils # (Manual) Basophils # (Manual) PT INR Fibrinogen dRVVT Confirm Interp Factor V Activity POC ABG pH POC ABG pCO2 POC ABG pO2 ABG pO2 ABG HCO3 ABG Base Excess ABG Hemoglobin Oxyhemoglobin Sodium 127 L Potassium Chloride 86.8 L Carbon Dioxide 20 L BUN 42 H Creatinine 3.5 H Glucose POC Glucose 65 L Lactic Acid Calcium 7.0 L Phosphorus Magnesium Direct Bilirubin AST ALT Alkaline Phosphatase Lactate Dehydrogenase Troponin T C-Reactive Protein Total Protein Albumin Prealbumin Triglycerides Cholesterol LDL Cholesterol Direct HDL Cholesterol Urine pH Urine WBC (Auto) Urine Creatinine Urine Total Protein Fluid Total Protein Vancomycin Trough Rheumatoid Factor Complement C4 Miscellaneous Test Crossmatch 10/01/16 10/01/16 10/02/16 17:39 23:32 00:59 WBC RBC Hgb Hct MCV MCH MCHC RDW Plt Count Lymph % (Auto) [place] % (Auto) Lymph # [place] # Baso # Seg Neutrophils % Seg Neuts % (Manual) Lymphocytes % (Manual) Monocytes % (Manual) Eosinophils % (Manual) Basophils % (Manual) Nucleated RBC % Seg Neutrophils # Seg Neutrophils # Man Lymphocytes # (Manual) Monocytes # (Manual) Eosinophils # (Manual) Basophils # (Manual) PT INR Fibrinogen dRVVT Confirm Interp Factor V Activity POC ABG pH POC ABG pCO2 POC ABG pO2 ABG pO2 ABG HCO3 ABG Base Excess ABG Hemoglobin Oxyhemoglobin Sodium Potassium Chloride Carbon Dioxide BUN Creatinine Glucose POC Glucose 107 H 52 L 145 H Lactic Acid Calcium Phosphorus Magnesium Direct Bilirubin AST ALT Alkaline Phosphatase Lactate Dehydrogenase Troponin T C-Reactive Protein Total Protein Albumin Prealbumin Triglycerides Cholesterol LDL Cholesterol Direct HDL Cholesterol Urine pH Urine WBC (Auto) Urine Creatinine Urine Total Protein Fluid Total Protein Vancomycin Trough Rheumatoid Factor Complement C4 Miscellaneous Test Crossmatch 10/02/16 10/02/16 10/02/16 10:30 10:50 10:50 WBC 14.7 H RBC 2.76 L Hgb 7.4 L Hct 23.6 L MCV MCH 27 L MCHC RDW 20.2 H Plt Count 79 L Lymph % (Auto) [place] % (Auto) Lymph # [place] # Baso # Seg Neutrophils % Seg Neuts % (Manual) 86.0 H Lymphocytes % (Manual) 6.0 L Monocytes % (Manual) Eosinophils % (Manual) Basophils % (Manual) Nucleated RBC % Seg Neutrophils # Seg Neutrophils # Man 12.6 H Lymphocytes # (Manual) 0.9 L Monocytes # (Manual) Eosinophils # (Manual) Basophils # (Manual) PT INR Fibrinogen dRVVT Confirm Interp Factor V Activity POC ABG pH 7.486 H POC ABG pCO2 30.1 L POC ABG pO2 108 H ABG pO2 ABG HCO3 ABG Base Excess ABG Hemoglobin Oxyhemoglobin Sodium 131 L Potassium 3.4 L Chloride 89.9 L Carbon Dioxide BUN 26 H Creatinine 2.6 H Glucose POC Glucose Lactic Acid Calcium 7.0 L Phosphorus Magnesium Direct Bilirubin AST ALT Alkaline Phosphatase Lactate Dehydrogenase Troponin T C-Reactive Protein Total Protein Albumin Prealbumin Triglycerides Cholesterol LDL Cholesterol Direct HDL Cholesterol Urine pH Urine WBC (Auto) Urine Creatinine Urine Total Protein Fluid Total Protein Vancomycin Trough Rheumatoid Factor Complement C4 Miscellaneous Test Crossmatch 10/02/16 10/03/16 10/03/16 23:45 00:45 05:10 WBC 12.9 H RBC 2.77 L Hgb 7.6 L Hct 23.7 L MCV MCH 27 L MCHC RDW 19.7 H Plt Count 89 L Lymph % (Auto) [place] % (Auto) Lymph # [place] # Baso # Seg Neutrophils % Seg Neuts % (Manual) Lymphocytes % (Manual) 8.0 L Monocytes % (Manual) Eosinophils % (Manual) Basophils % (Manual) Nucleated RBC % Seg Neutrophils # 11.9 H Seg Neutrophils # Man Lymphocytes # (Manual) 1.0 L Monocytes # (Manual) Eosinophils # (Manual) Basophils # (Manual) PT INR Fibrinogen dRVVT Confirm Interp Factor V Activity POC ABG pH POC ABG pCO2 POC ABG pO2 ABG pO2 ABG HCO3 ABG Base Excess ABG Hemoglobin Oxyhemoglobin Sodium Potassium Chloride Carbon Dioxide BUN Creatinine Glucose POC Glucose 55 L 199 H Lactic Acid Calcium Phosphorus Magnesium Direct Bilirubin AST ALT Alkaline Phosphatase Lactate Dehydrogenase Troponin T C-Reactive Protein Total Protein Albumin Prealbumin Triglycerides Cholesterol LDL Cholesterol Direct HDL Cholesterol Urine pH Urine WBC (Auto) Urine Creatinine Urine Total Protein Fluid Total Protein Vancomycin Trough Rheumatoid Factor Complement C4 Miscellaneous Test Crossmatch 10/03/16 10/03/16 10/03/16 05:10 12:14 13:18 WBC RBC Hgb Hct MCV MCH MCHC RDW Plt Count Lymph % (Auto) [place] % (Auto) Lymph # [place] # Baso # Seg Neutrophils % Seg Neuts % (Manual) Lymphocytes % (Manual) Monocytes % (Manual) Eosinophils % (Manual) Basophils % (Manual) Nucleated RBC % Seg Neutrophils # Seg Neutrophils # Man Lymphocytes # (Manual) Monocytes # (Manual) Eosinophils # (Manual) Basophils # (Manual) PT INR Fibrinogen dRVVT Confirm Interp Factor V Activity POC ABG pH POC ABG pCO2 POC ABG pO2 ABG pO2 ABG HCO3 ABG Base Excess ABG Hemoglobin Oxyhemoglobin Sodium 129 L Potassium 3.3 L Chloride 88.8 L Carbon Dioxide 20 L BUN 29 H Creatinine 2.8 H Glucose POC Glucose 68 L 127 H Lactic Acid Calcium 7.2 L Phosphorus Magnesium Direct Bilirubin AST ALT Alkaline Phosphatase Lactate Dehydrogenase Troponin T C-Reactive Protein Total Protein Albumin Prealbumin Triglycerides Cholesterol LDL Cholesterol Direct HDL Cholesterol Urine pH Urine WBC (Auto) Urine Creatinine Urine Total Protein Fluid Total Protein Vancomycin Trough Rheumatoid Factor Complement C4 Miscellaneous Test Crossmatch 10/03/16 10/03/16 10/03/16 14:42 18:21 19:09 WBC RBC Hgb Hct MCV MCH MCHC RDW Plt Count Lymph % (Auto) [place] % (Auto) Lymph # [place] # Baso # Seg Neutrophils % Seg Neuts % (Manual) Lymphocytes % (Manual) Monocytes % (Manual) Eosinophils % (Manual) Basophils % (Manual) Nucleated RBC % Seg Neutrophils # Seg Neutrophils # Man Lymphocytes # (Manual) Monocytes # (Manual) Eosinophils # (Manual) Basophils # (Manual) PT INR Fibrinogen dRVVT Confirm Interp Factor V Activity POC ABG pH 7.499 H POC ABG pCO2 28.4 L POC ABG pO2 44 L ABG pO2 ABG HCO3 ABG Base Excess ABG Hemoglobin Oxyhemoglobin Sodium Potassium Chloride Carbon Dioxide BUN Creatinine Glucose POC Glucose 64 L 205 H Lactic Acid Calcium Phosphorus Magnesium Direct Bilirubin AST ALT Alkaline Phosphatase Lactate Dehydrogenase Troponin T C-Reactive Protein Total Protein Albumin Prealbumin Triglycerides Cholesterol LDL Cholesterol Direct HDL Cholesterol Urine pH Urine WBC (Auto) Urine Creatinine Urine Total Protein Fluid Total Protein Vancomycin Trough Rheumatoid Factor Complement C4 Miscellaneous Test Crossmatch 10/03/16 10/04/16 10/04/16 23:33 04:18 06:30 WBC RBC 2.54 L Hgb 7.1 L Hct 21.7 L MCV MCH MCHC RDW 19.5 H Plt Count 76 L Lymph % (Auto) [place] % (Auto) Lymph # [place] # Baso # Seg Neutrophils % Seg Neuts % (Manual) 88.0 H Lymphocytes % (Manual) 6.0 L Monocytes % (Manual) Eosinophils % (Manual) Basophils % (Manual) Nucleated RBC % Seg Neutrophils # Seg Neutrophils # Man 8.8 H Lymphocytes # (Manual) 0.6 L Monocytes # (Manual) Eosinophils # (Manual) Basophils # (Manual) PT INR Fibrinogen dRVVT Confirm Interp Factor V Activity POC ABG pH 7.461 H POC ABG pCO2 33.6 L POC ABG pO2 211 H ABG pO2 ABG HCO3 ABG Base Excess ABG Hemoglobin Oxyhemoglobin Sodium Potassium Chloride Carbon Dioxide BUN Creatinine Glucose POC Glucose 136 H Lactic Acid Calcium Phosphorus Magnesium Direct Bilirubin AST ALT Alkaline Phosphatase Lactate Dehydrogenase Troponin T C-Reactive Protein Total Protein Albumin Prealbumin Triglycerides Cholesterol LDL Cholesterol Direct HDL Cholesterol Urine pH Urine WBC (Auto) Urine Creatinine Urine Total Protein Fluid Total Protein Vancomycin Trough Rheumatoid Factor Complement C4 Miscellaneous Test Crossmatch 10/04/16 10/04/16 10/04/16 06:30 11:45 17:54 WBC RBC Hgb Hct MCV MCH MCHC RDW Plt Count Lymph % (Auto) [place] % (Auto) Lymph # [place] # Baso # Seg Neutrophils % Seg Neuts % (Manual) Lymphocytes % (Manual) Monocytes % (Manual) Eosinophils % (Manual) Basophils % (Manual) Nucleated RBC % Seg Neutrophils # Seg Neutrophils # Man Lymphocytes # (Manual) Monocytes # (Manual) Eosinophils # (Manual) Basophils # (Manual) PT INR Fibrinogen dRVVT Confirm Interp Factor V Activity POC ABG pH POC ABG pCO2 POC ABG pO2 ABG pO2 ABG HCO3 ABG Base Excess ABG Hemoglobin Oxyhemoglobin Sodium 128 L Potassium Chloride 87.4 L Carbon Dioxide 20 L BUN 34 H Creatinine 2.9 H Glucose 127 H POC Glucose 158 H 160 H Lactic Acid Calcium 7.4 L Phosphorus Magnesium Direct Bilirubin AST ALT Alkaline Phosphatase Lactate Dehydrogenase Troponin T C-Reactive Protein Total Protein Albumin Prealbumin Triglycerides Cholesterol LDL Cholesterol Direct HDL Cholesterol Urine pH Urine WBC (Auto) Urine Creatinine Urine Total Protein Fluid Total Protein Vancomycin Trough Rheumatoid Factor Complement C4 Miscellaneous Test Crossmatch 10/04/16 10/05/16 10/05/16 23:25 04:30 05:00 WBC RBC 2.64 L Hgb 7.5 L Hct 22.6 L MCV MCH MCHC RDW 19.3 H Plt Count 80 L Lymph % (Auto) [place] % (Auto) Lymph # [place] # Baso # Seg Neutrophils % Seg Neuts % (Manual) Lymphocytes % (Manual) 12.0 L Monocytes % (Manual) Eosinophils % (Manual) Basophils % (Manual) Nucleated RBC % Seg Neutrophils # Seg Neutrophils # Man Lymphocytes # (Manual) Monocytes # (Manual) Eosinophils # (Manual) Basophils # (Manual) PT INR Fibrinogen dRVVT Confirm Interp Factor V Activity POC ABG pH 7.475 H POC ABG pCO2 33.3 L POC ABG pO2 140 H ABG pO2 ABG HCO3 ABG Base Excess ABG Hemoglobin Oxyhemoglobin Sodium Potassium Chloride Carbon Dioxide BUN Creatinine Glucose POC Glucose 141 H Lactic Acid Calcium Phosphorus Magnesium Direct Bilirubin AST ALT Alkaline Phosphatase Lactate Dehydrogenase Troponin T C-Reactive Protein Total Protein Albumin Prealbumin Triglycerides Cholesterol LDL Cholesterol Direct HDL Cholesterol Urine pH Urine WBC (Auto) Urine Creatinine Urine Total Protein Fluid Total Protein Vancomycin Trough Rheumatoid Factor Complement C4 Miscellaneous Test Crossmatch 10/05/16 10/05/16 10/05/16 05:00 05:09 12:58 WBC RBC Hgb Hct MCV MCH MCHC RDW Plt Count Lymph % (Auto) [place] % (Auto) Lymph # [place] # Baso # Seg Neutrophils % Seg Neuts % (Manual) Lymphocytes % (Manual) Monocytes % (Manual) Eosinophils % (Manual) Basophils % (Manual) Nucleated RBC % Seg Neutrophils # Seg Neutrophils # Man Lymphocytes # (Manual) Monocytes # (Manual) Eosinophils # (Manual) Basophils # (Manual) PT INR Fibrinogen dRVVT Confirm Interp Factor V Activity POC ABG pH POC ABG pCO2 POC ABG pO2 ABG pO2 ABG HCO3 ABG Base Excess ABG Hemoglobin Oxyhemoglobin Sodium 131 L Potassium Chloride 94.0 L Carbon Dioxide 20 L BUN 22 H Creatinine 2.0 H Glucose 123 H POC Glucose 166 H 179 H Lactic Acid Calcium 7.7 L Phosphorus 2.20 L D Magnesium Direct Bilirubin AST ALT Alkaline Phosphatase Lactate Dehydrogenase Troponin T C-Reactive Protein Total Protein Albumin Prealbumin Triglycerides Cholesterol LDL Cholesterol Direct HDL Cholesterol Urine pH Urine WBC (Auto) Urine Creatinine Urine Total Protein Fluid Total Protein Vancomycin Trough Rheumatoid Factor Complement C4 Miscellaneous Test Crossmatch 10/05/16 10/05/16 10/05/16 15:50 18:53 23:12 WBC RBC Hgb Hct MCV MCH MCHC RDW Plt Count Lymph % (Auto) [place] % (Auto) Lymph # [place] # Baso # Seg Neutrophils % Seg Neuts % (Manual) Lymphocytes % (Manual) Monocytes % (Manual) Eosinophils % (Manual) Basophils % (Manual) Nucleated RBC % Seg Neutrophils # Seg Neutrophils # Man Lymphocytes # (Manual) Monocytes # (Manual) Eosinophils # (Manual) Basophils # (Manual) PT INR Fibrinogen dRVVT Confirm Interp Factor V Activity POC ABG pH POC ABG pCO2 POC ABG pO2 ABG pO2 ABG HCO3 ABG Base Excess ABG Hemoglobin Oxyhemoglobin Sodium Potassium Chloride Carbon Dioxide BUN Creatinine Glucose POC Glucose 150 H 164 H Lactic Acid Calcium Phosphorus Magnesium Direct Bilirubin AST ALT Alkaline Phosphatase Lactate Dehydrogenase Troponin T C-Reactive Protein Total Protein Albumin Prealbumin Triglycerides Cholesterol LDL Cholesterol Direct HDL Cholesterol Urine pH Urine WBC (Auto) Urine Creatinine Urine Total Protein Fluid Total Protein Vancomycin Trough Rheumatoid Factor Complement C4 Miscellaneous Test Crossmatch See Detail 10/06/16 10/06/16 10/06/16 03:50 03:50 04:53 WBC RBC 3.00 L Hgb 8.6 L Hct 25.8 L MCV MCH MCHC RDW 17.9 H Plt Count 65 L Lymph % (Auto) [place] % (Auto) Lymph # [place] # Baso # Seg Neutrophils % Seg Neuts % (Manual) 30.0 L Lymphocytes % (Manual) 5.0 L Monocytes % (Manual) Eosinophils % (Manual) Basophils % (Manual) Nucleated RBC % Seg Neutrophils # Seg Neutrophils # Man Lymphocytes # (Manual) 0.4 L Monocytes # (Manual) Eosinophils # (Manual) Basophils # (Manual) PT INR Fibrinogen dRVVT Confirm Interp Factor V Activity POC ABG pH 7.310 L POC ABG pCO2 49.0 H POC ABG pO2 ABG pO2 ABG HCO3 ABG Base Excess ABG Hemoglobin Oxyhemoglobin Sodium 133 L Potassium Chloride 95.9 L Carbon Dioxide BUN 26 H Creatinine 2.0 H Glucose 116 H POC Glucose Lactic Acid Calcium 7.8 L Phosphorus Magnesium Direct Bilirubin AST ALT Alkaline Phosphatase Lactate Dehydrogenase Troponin T C-Reactive Protein Total Protein Albumin Prealbumin Triglycerides Cholesterol LDL Cholesterol Direct HDL Cholesterol Urine pH Urine WBC (Auto) Urine Creatinine Urine Total Protein Fluid Total Protein Vancomycin Trough Rheumatoid Factor Complement C4 Miscellaneous Test Crossmatch 10/06/16 10/06/16 10/06/16 05:23 11:52 18:34 WBC RBC Hgb Hct MCV MCH MCHC RDW Plt Count Lymph % (Auto) [place] % (Auto) Lymph # [place] # Baso # Seg Neutrophils % Seg Neuts % (Manual) Lymphocytes % (Manual) Monocytes % (Manual) Eosinophils % (Manual) Basophils % (Manual) Nucleated RBC % Seg Neutrophils # Seg Neutrophils # Man Lymphocytes # (Manual) Monocytes # (Manual) Eosinophils # (Manual) Basophils # (Manual) PT INR Fibrinogen dRVVT Confirm Interp Factor V Activity POC ABG pH POC ABG pCO2 POC ABG pO2 ABG pO2 ABG HCO3 ABG Base Excess ABG Hemoglobin Oxyhemoglobin Sodium Potassium Chloride Carbon Dioxide BUN Creatinine Glucose POC Glucose 126 H 116 H 129 H Lactic Acid Calcium Phosphorus Magnesium Direct Bilirubin AST ALT Alkaline Phosphatase Lactate Dehydrogenase Troponin T C-Reactive Protein Total Protein Albumin Prealbumin Triglycerides Cholesterol LDL Cholesterol Direct HDL Cholesterol Urine pH Urine WBC (Auto) Urine Creatinine Urine Total Protein Fluid Total Protein Vancomycin Trough Rheumatoid Factor Complement C4 Miscellaneous Test Crossmatch 10/07/16 10/07/16 10/07/16 03:45 05:00 10:00 WBC 17.0 H RBC 2.68 L Hgb 7.3 L Hct 25.3 L MCV MCH 27 L MCHC 29 L RDW 19.6 H Plt Count 74 L Lymph % (Auto) [place] % (Auto) Lymph # [place] # Baso # Seg Neutrophils % Seg Neuts % (Manual) Lymphocytes % (Manual) 12.0 L Monocytes % (Manual) Eosinophils % (Manual) Basophils % (Manual) Nucleated RBC % 4.0 H Seg Neutrophils # Seg Neutrophils # Man 10.7 H Lymphocytes # (Manual) Monocytes # (Manual) Eosinophils # (Manual) Basophils # (Manual) PT INR Fibrinogen dRVVT Confirm Interp Factor V Activity POC ABG pH POC ABG pCO2 POC ABG pO2 ABG pO2 ABG HCO3 ABG Base Excess ABG Hemoglobin Oxyhemoglobin Sodium 130 L Potassium 3.2 L Chloride 93.9 L Carbon Dioxide 20 L BUN 44 H Creatinine 2.7 H Glucose 129 H POC Glucose Lactic Acid Calcium 7.4 L Phosphorus Magnesium Direct Bilirubin AST ALT 6 L Alkaline Phosphatase 195 H Lactate Dehydrogenase Troponin T C-Reactive Protein Total Protein 4.9 L Albumin 1.0 L Prealbumin Triglycerides Cholesterol LDL Cholesterol Direct HDL Cholesterol Urine pH Urine WBC (Auto) Urine Creatinine Urine Total Protein Fluid Total Protein Vancomycin Trough Rheumatoid Factor Complement C4 Miscellaneous Test Flexitest 1 H Crossmatch 10/07/16 10/07/16 10/07/16 10:00 11:24 18:10 WBC RBC Hgb Hct MCV MCH MCHC RDW Plt Count Lymph % (Auto) [place] % (Auto) Lymph # [place] # Baso # Seg Neutrophils % Seg Neuts % (Manual) Lymphocytes % (Manual) Monocytes % (Manual) Eosinophils % (Manual) Basophils % (Manual) Nucleated RBC % Seg Neutrophils # Seg Neutrophils # Man Lymphocytes # (Manual) Monocytes # (Manual) Eosinophils # (Manual) Basophils # (Manual) PT INR Fibrinogen dRVVT Confirm Interp Factor V Activity POC ABG pH POC ABG pCO2 POC ABG pO2 ABG pO2 ABG HCO3 ABG Base Excess ABG Hemoglobin Oxyhemoglobin Sodium Potassium Chloride Carbon Dioxide BUN Creatinine Glucose POC Glucose 116 H 130 H Lactic Acid Calcium Phosphorus Magnesium Direct Bilirubin AST ALT Alkaline Phosphatase Lactate Dehydrogenase Troponin T C-Reactive Protein 19.40 H Total Protein Albumin Prealbumin Triglycerides Cholesterol LDL Cholesterol Direct HDL Cholesterol Urine pH Urine WBC (Auto) Urine Creatinine Urine Total Protein Fluid Total Protein Vancomycin Trough Rheumatoid Factor Complement C4 Miscellaneous Test Crossmatch 10/07/16 10/08/16 10/08/16 18:30 00:00 04:00 WBC RBC Hgb Hct MCV MCH MCHC RDW Plt Count Lymph % (Auto) [place] % (Auto) Lymph # [place] # Baso # Seg Neutrophils % Seg Neuts % (Manual) Lymphocytes % (Manual) Monocytes % (Manual) Eosinophils % (Manual) Basophils % (Manual) Nucleated RBC % Seg Neutrophils # Seg Neutrophils # Man Lymphocytes # (Manual) Monocytes # (Manual) Eosinophils # (Manual) Basophils # (Manual) PT INR Fibrinogen dRVVT Confirm Interp Factor V Activity POC ABG pH POC ABG pCO2 POC ABG pO2 ABG pO2 ABG HCO3 ABG Base Excess ABG Hemoglobin Oxyhemoglobin Sodium 132 L Potassium 3.3 L Chloride 93.6 L Carbon Dioxide 17 L BUN 59 H Creatinine 2.7 H Glucose 121 H POC Glucose 122 H Lactic Acid Calcium 7.6 L Phosphorus Magnesium Direct Bilirubin AST ALT Alkaline Phosphatase Lactate Dehydrogenase Troponin T C-Reactive Protein Total Protein Albumin Prealbumin Triglycerides Cholesterol LDL Cholesterol Direct HDL Cholesterol Urine pH Urine WBC (Auto) > 182.0 H Urine Creatinine Urine Total Protein Fluid Total Protein Vancomycin Trough Rheumatoid Factor Complement C4 Miscellaneous Test Crossmatch 10/08/16 10/08/16 10/08/16 04:30 05:30 11:51 WBC RBC 5.15 H Hgb 14.4 H D Hct 44.5 H D MCV MCH MCHC RDW 19.5 H Plt Count 56 L Lymph % (Auto) [place] % (Auto) Lymph # [place] # Baso # Seg Neutrophils % Seg Neuts % (Manual) 24.0 L Lymphocytes % (Manual) 8.0 L Monocytes % (Manual) Eosinophils % (Manual) Basophils % (Manual) Nucleated RBC % 9.0 H Seg Neutrophils # Seg Neutrophils # Man Lymphocytes # (Manual) 0.7 L Monocytes # (Manual) Eosinophils # (Manual) Basophils # (Manual) PT INR Fibrinogen dRVVT Confirm Interp Factor V Activity POC ABG pH POC ABG pCO2 POC ABG pO2 ABG pO2 ABG HCO3 ABG Base Excess ABG Hemoglobin Oxyhemoglobin Sodium Potassium Chloride Carbon Dioxide BUN Creatinine Glucose POC Glucose 125 H 150 H Lactic Acid Calcium Phosphorus Magnesium Direct Bilirubin AST ALT Alkaline Phosphatase Lactate Dehydrogenase Troponin T C-Reactive Protein Total Protein Albumin Prealbumin Triglycerides Cholesterol LDL Cholesterol Direct HDL Cholesterol Urine pH Urine WBC (Auto) Urine Creatinine Urine Total Protein Fluid Total Protein Vancomycin Trough Rheumatoid Factor Complement C4 Miscellaneous Test Crossmatch 10/08/16 10/08/16 10/08/16 12:49 17:07 19:30 WBC RBC Hgb 7.1 L D Hct 22.4 L D MCV MCH MCHC RDW Plt Count Lymph % (Auto) [place] % (Auto) Lymph # [place] # Baso # Seg Neutrophils % Seg Neuts % (Manual) Lymphocytes % (Manual) Monocytes % (Manual) Eosinophils % (Manual) Basophils % (Manual) Nucleated RBC % Seg Neutrophils # Seg Neutrophils # Man Lymphocytes # (Manual) Monocytes # (Manual) Eosinophils # (Manual) Basophils # (Manual) PT INR Fibrinogen dRVVT Confirm Interp Factor V Activity POC ABG pH POC ABG pCO2 28.2 L POC ABG pO2 111 H ABG pO2 ABG HCO3 ABG Base Excess ABG Hemoglobin Oxyhemoglobin Sodium Potassium Chloride Carbon Dioxide BUN Creatinine Glucose POC Glucose 145 H Lactic Acid Calcium Phosphorus Magnesium Direct Bilirubin AST ALT Alkaline Phosphatase Lactate Dehydrogenase Troponin T C-Reactive Protein Total Protein Albumin Prealbumin Triglycerides Cholesterol LDL Cholesterol Direct HDL Cholesterol Urine pH Urine WBC (Auto) Urine Creatinine Urine Total Protein Fluid Total Protein Vancomycin Trough Rheumatoid Factor Complement C4 Miscellaneous Test Crossmatch 10/08/16 10/09/16 10/09/16 19:30 03:45 03:45 WBC 12.6 H RBC 2.36 L Hgb 6.7 L Hct 21.1 L MCV MCH MCHC RDW 19.5 H Plt Count 75 L Lymph % (Auto) [place] % (Auto) Lymph # [place] # Baso # Seg Neutrophils % Seg Neuts % (Manual) Lymphocytes % (Manual) Monocytes % (Manual) 10.0 H Eosinophils % (Manual) Basophils % (Manual) Nucleated RBC % 3.0 H Seg Neutrophils # Seg Neutrophils # Man Lymphocytes # (Manual) Monocytes # (Manual) 1.3 H Eosinophils # (Manual) Basophils # (Manual) PT 18.0 H INR 1.41 H Fibrinogen dRVVT Confirm Interp Factor V Activity POC ABG pH POC ABG pCO2 POC ABG pO2 ABG pO2 ABG HCO3 ABG Base Excess ABG Hemoglobin Oxyhemoglobin Sodium 135 L Potassium Chloride Carbon Dioxide 17 L BUN 81 H Creatinine 3.2 H Glucose 109 H POC Glucose Lactic Acid Calcium 7.4 L Phosphorus 4.60 H D Magnesium Direct Bilirubin AST ALT Alkaline Phosphatase Lactate Dehydrogenase Troponin T C-Reactive Protein Total Protein Albumin Prealbumin Triglycerides Cholesterol LDL Cholesterol Direct HDL Cholesterol Urine pH Urine WBC (Auto) Urine Creatinine Urine Total Protein Fluid Total Protein Vancomycin Trough Rheumatoid Factor Complement C4 Miscellaneous Test Crossmatch 10/09/16 10/09/16 10/09/16 03:45 05:14 07:20 WBC RBC Hgb Hct MCV MCH MCHC RDW Plt Count Lymph % (Auto) [place] % (Auto) Lymph # [place] # Baso # Seg Neutrophils % Seg Neuts % (Manual) Lymphocytes % (Manual) Monocytes % (Manual) Eosinophils % (Manual) Basophils % (Manual) Nucleated RBC % Seg Neutrophils # Seg Neutrophils # Man Lymphocytes # (Manual) Monocytes # (Manual) Eosinophils # (Manual) Basophils # (Manual) PT 19.0 H INR 1.51 H Fibrinogen dRVVT Confirm Interp Factor V Activity POC ABG pH POC ABG pCO2 POC ABG pO2 ABG pO2 ABG HCO3 ABG Base Excess ABG Hemoglobin Oxyhemoglobin Sodium Potassium Chloride Carbon Dioxide BUN Creatinine Glucose POC Glucose 151 H Lactic Acid Calcium Phosphorus Magnesium Direct Bilirubin AST ALT Alkaline Phosphatase Lactate Dehydrogenase Troponin T C-Reactive Protein Total Protein Albumin Prealbumin Triglycerides Cholesterol LDL Cholesterol Direct HDL Cholesterol Urine pH Urine WBC (Auto) Urine Creatinine Urine Total Protein Fluid Total Protein Vancomycin Trough Rheumatoid Factor Complement C4 Miscellaneous Test Crossmatch See Detail 10/09/16 10/09/16 10/09/16 11:46 16:20 16:43 WBC RBC Hgb 7.2 L Hct 22.2 L MCV MCH MCHC RDW Plt Count Lymph % (Auto) [place] % (Auto) Lymph # [place] # Baso # Seg Neutrophils % Seg Neuts % (Manual) Lymphocytes % (Manual) Monocytes % (Manual) Eosinophils % (Manual) Basophils % (Manual) Nucleated RBC % Seg Neutrophils # Seg Neutrophils # Man Lymphocytes # (Manual) Monocytes # (Manual) Eosinophils # (Manual) Basophils # (Manual) PT INR Fibrinogen dRVVT Confirm Interp Factor V Activity POC ABG pH POC ABG pCO2 POC ABG pO2 ABG pO2 ABG HCO3 ABG Base Excess ABG Hemoglobin Oxyhemoglobin Sodium Potassium Chloride Carbon Dioxide BUN Creatinine Glucose POC Glucose 133 H 141 H Lactic Acid Calcium Phosphorus Magnesium Direct Bilirubin AST ALT Alkaline Phosphatase Lactate Dehydrogenase Troponin T C-Reactive Protein Total Protein Albumin Prealbumin Triglycerides Cholesterol LDL Cholesterol Direct HDL Cholesterol Urine pH Urine WBC (Auto) Urine Creatinine Urine Total Protein Fluid Total Protein Vancomycin Trough Rheumatoid Factor Complement C4 Miscellaneous Test Crossmatch 10/10/16 10/10/16 10/10/16 05:00 05:00 11:19 WBC 18.5 H RBC 2.19 L Hgb 6.4 L Hct 19.6 L* MCV MCH MCHC RDW 19.3 H Plt Count 93 L Lymph % (Auto) [place] % (Auto) Lymph # [place] # Baso # Seg Neutrophils % Seg Neuts % (Manual) Lymphocytes % (Manual) 10.0 L Monocytes % (Manual) Eosinophils % (Manual) Basophils % (Manual) Nucleated RBC % 4.0 H Seg Neutrophils # Seg Neutrophils # Man 11.3 H Lymphocytes # (Manual) Monocytes # (Manual) Eosinophils # (Manual) Basophils # (Manual) PT INR Fibrinogen dRVVT Confirm Interp Factor V Activity POC ABG pH POC ABG pCO2 POC ABG pO2 ABG pO2 ABG HCO3 ABG Base Excess ABG Hemoglobin Oxyhemoglobin Sodium Potassium 5.7 H D Chloride Carbon Dioxide 16 L BUN 94 H Creatinine 3.1 H Glucose 131 H POC Glucose 153 H Lactic Acid Calcium 8.2 L Phosphorus 5.10 H Magnesium 2.40 H Direct Bilirubin 0.3 H AST ALT < 5 L Alkaline Phosphatase 319 H Lactate Dehydrogenase Troponin T C-Reactive Protein Total Protein 5.1 L Albumin 1.0 L Prealbumin Triglycerides Cholesterol LDL Cholesterol Direct HDL Cholesterol Urine pH Urine WBC (Auto) Urine Creatinine Urine Total Protein Fluid Total Protein Vancomycin Trough Rheumatoid Factor Complement C4 Miscellaneous Test Crossmatch 10/10/16 10/10/16 10/11/16 17:50 23:30 04:15 WBC RBC Hgb Hct MCV MCH MCHC RDW Plt Count Lymph % (Auto) [place] % (Auto) Lymph # [place] # Baso # Seg Neutrophils % Seg Neuts % (Manual) Lymphocytes % (Manual) Monocytes % (Manual) Eosinophils % (Manual) Basophils % (Manual) Nucleated RBC % Seg Neutrophils # Seg Neutrophils # Man Lymphocytes # (Manual) Monocytes # (Manual) Eosinophils # (Manual) Basophils # (Manual) PT INR Fibrinogen dRVVT Confirm Interp Factor V Activity POC ABG pH POC ABG pCO2 POC ABG pO2 ABG pO2 ABG HCO3 ABG Base Excess ABG Hemoglobin Oxyhemoglobin Sodium Potassium Chloride 96.4 L Carbon Dioxide 21 L BUN 57 H Creatinine 2.1 H Glucose 151 H POC Glucose 146 H 141 H Lactic Acid Calcium 8.3 L Phosphorus Magnesium Direct Bilirubin AST ALT Alkaline Phosphatase Lactate Dehydrogenase Troponin T C-Reactive Protein Total Protein Albumin Prealbumin Triglycerides Cholesterol LDL Cholesterol Direct HDL Cholesterol Urine pH Urine WBC (Auto) Urine Creatinine Urine Total Protein Fluid Total Protein Vancomycin Trough Rheumatoid Factor Complement C4 Miscellaneous Test Crossmatch 10/11/16 10/11/16 10/11/16 04:15 04:15 05:30 WBC 28.3 H RBC 3.12 L Hgb 9.3 L Hct 28.7 L D MCV MCH MCHC RDW 17.7 H Plt Count 128 L Lymph % (Auto) [place] % (Auto) Lymph # [place] # Baso # Seg Neutrophils % Seg Neuts % (Manual) Lymphocytes % (Manual) Monocytes % (Manual) Eosinophils % (Manual) Basophils % (Manual) Nucleated RBC % Seg Neutrophils # Seg Neutrophils # Man Lymphocytes # (Manual) Monocytes # (Manual) Eosinophils # (Manual) Basophils # (Manual) PT INR Fibrinogen dRVVT Confirm Interp Factor V Activity POC ABG pH POC ABG pCO2 POC ABG pO2 ABG pO2 ABG HCO3 ABG Base Excess ABG Hemoglobin Oxyhemoglobin Sodium Potassium Chloride Carbon Dioxide BUN Creatinine Glucose POC Glucose 167 H Lactic Acid Calcium Phosphorus Magnesium Direct Bilirubin AST ALT Alkaline Phosphatase Lactate Dehydrogenase Troponin T C-Reactive Protein 15.80 H Total Protein Albumin Prealbumin Triglycerides Cholesterol LDL Cholesterol Direct HDL Cholesterol Urine pH Urine WBC (Auto) Urine Creatinine Urine Total Protein Fluid Total Protein Vancomycin Trough Rheumatoid Factor Complement C4 Miscellaneous Test Crossmatch 10/11/16 10/11/16 10/11/16 11:40 15:49 23:57 WBC RBC Hgb Hct MCV MCH MCHC RDW Plt Count Lymph % (Auto) [place] % (Auto) Lymph # [place] # Baso # Seg Neutrophils % Seg Neuts % (Manual) Lymphocytes % (Manual) Monocytes % (Manual) Eosinophils % (Manual) Basophils % (Manual) Nucleated RBC % Seg Neutrophils # Seg Neutrophils # Man Lymphocytes # (Manual) Monocytes # (Manual) Eosinophils # (Manual) Basophils # (Manual) PT INR Fibrinogen dRVVT Confirm Interp Factor V Activity POC ABG pH POC ABG pCO2 POC ABG pO2 ABG pO2 ABG HCO3 ABG Base Excess ABG Hemoglobin Oxyhemoglobin Sodium Potassium Chloride Carbon Dioxide BUN Creatinine Glucose POC Glucose 139 H 168 H 161 H Lactic Acid Calcium Phosphorus Magnesium Direct Bilirubin AST ALT Alkaline Phosphatase Lactate Dehydrogenase Troponin T C-Reactive Protein Total Protein Albumin Prealbumin Triglycerides Cholesterol LDL Cholesterol Direct HDL Cholesterol Urine pH Urine WBC (Auto) Urine Creatinine Urine Total Protein Fluid Total Protein Vancomycin Trough Rheumatoid Factor Complement C4 Miscellaneous Test Crossmatch 10/12/16 10/12/16 10/12/16 04:40 04:40 05:44 WBC 22.5 H RBC 2.88 L Hgb 8.8 L Hct 26.8 L MCV MCH MCHC RDW 17.8 H Plt Count Lymph % (Auto) [place] % (Auto) Lymph # [place] # Baso # Seg Neutrophils % Seg Neuts % (Manual) Lymphocytes % (Manual) Monocytes % (Manual) Eosinophils % (Manual) Basophils % (Manual) Nucleated RBC % Seg Neutrophils # Seg Neutrophils # Man Lymphocytes # (Manual) Monocytes # (Manual) Eosinophils # (Manual) Basophils # (Manual) PT INR Fibrinogen dRVVT Confirm Interp Factor V Activity POC ABG pH POC ABG pCO2 POC ABG pO2 ABG pO2 ABG HCO3 ABG Base Excess ABG Hemoglobin Oxyhemoglobin Sodium 134 L Potassium Chloride 93.0 L Carbon Dioxide BUN 74 H Creatinine 2.5 H Glucose 137 H POC Glucose 158 H Lactic Acid Calcium 8.2 L Phosphorus Magnesium Direct Bilirubin AST ALT Alkaline Phosphatase Lactate Dehydrogenase Troponin T C-Reactive Protein Total Protein Albumin Prealbumin Triglycerides Cholesterol LDL Cholesterol Direct HDL Cholesterol Urine pH Urine WBC (Auto) Urine Creatinine Urine Total Protein Fluid Total Protein Vancomycin Trough Rheumatoid Factor Complement C4 Miscellaneous Test Crossmatch 10/12/16 10/12/16 10/12/16 12:27 18:18 23:46 WBC RBC Hgb Hct MCV MCH MCHC RDW Plt Count Lymph % (Auto) [place] % (Auto) Lymph # [place] # Baso # Seg Neutrophils % Seg Neuts % (Manual) Lymphocytes % (Manual) Monocytes % (Manual) Eosinophils % (Manual) Basophils % (Manual) Nucleated RBC % Seg Neutrophils # Seg Neutrophils # Man Lymphocytes # (Manual) Monocytes # (Manual) Eosinophils # (Manual) Basophils # (Manual) PT INR Fibrinogen dRVVT Confirm Interp Factor V Activity POC ABG pH POC ABG pCO2 POC ABG pO2 ABG pO2 ABG HCO3 ABG Base Excess ABG Hemoglobin Oxyhemoglobin Sodium Potassium Chloride Carbon Dioxide BUN Creatinine Glucose POC Glucose 153 H 140 H 150 H Lactic Acid Calcium Phosphorus Magnesium Direct Bilirubin AST ALT Alkaline Phosphatase Lactate Dehydrogenase Troponin T C-Reactive Protein Total Protein Albumin Prealbumin Triglycerides Cholesterol LDL Cholesterol Direct HDL Cholesterol Urine pH Urine WBC (Auto) Urine Creatinine Urine Total Protein Fluid Total Protein Vancomycin Trough Rheumatoid Factor Complement C4 Miscellaneous Test Crossmatch 10/13/16 10/13/16 10/13/16 06:22 09:20 12:29 WBC RBC Hgb Hct MCV MCH MCHC RDW Plt Count Lymph % (Auto) [place] % (Auto) Lymph # [place] # Baso # Seg Neutrophils % Seg Neuts % (Manual) Lymphocytes % (Manual) Monocytes % (Manual) Eosinophils % (Manual) Basophils % (Manual) Nucleated RBC % Seg Neutrophils # Seg Neutrophils # Man Lymphocytes # (Manual) Monocytes # (Manual) Eosinophils # (Manual) Basophils # (Manual) PT INR Fibrinogen dRVVT Confirm Interp Factor V Activity POC ABG pH POC ABG pCO2 POC ABG pO2 ABG pO2 ABG HCO3 ABG Base Excess ABG Hemoglobin Oxyhemoglobin Sodium Potassium Chloride Carbon Dioxide BUN Creatinine Glucose POC Glucose 165 H 193 H Lactic Acid Calcium Phosphorus Magnesium Direct Bilirubin AST ALT Alkaline Phosphatase Lactate Dehydrogenase Troponin T C-Reactive Protein Total Protein Albumin Prealbumin Triglycerides Cholesterol LDL Cholesterol Direct HDL Cholesterol Urine pH Urine WBC (Auto) Urine Creatinine Urine Total Protein Fluid Total Protein Vancomycin Trough Rheumatoid Factor Complement C4 Miscellaneous Test Flexitest 1 H Crossmatch 10/13/16 10/13/16 10/13/16 18:09 Unknown Unknown WBC 23.4 H RBC 2.83 L Hgb 8.7 L Hct 26.1 L MCV MCH MCHC RDW 18.1 H Plt Count Lymph % (Auto) [place] % (Auto) Lymph # [place] # Baso # Seg Neutrophils % Seg Neuts % (Manual) Lymphocytes % (Manual) Monocytes % (Manual) Eosinophils % (Manual) Basophils % (Manual) Nucleated RBC % Seg Neutrophils # Seg Neutrophils # Man Lymphocytes # (Manual) Monocytes # (Manual) Eosinophils # (Manual) Basophils # (Manual) PT INR Fibrinogen dRVVT Confirm Interp Factor V Activity POC ABG pH POC ABG pCO2 POC ABG pO2 ABG pO2 ABG HCO3 ABG Base Excess ABG Hemoglobin Oxyhemoglobin Sodium Potassium Chloride 95.8 L Carbon Dioxide BUN 82 H Creatinine 2.6 H Glucose 152 H POC Glucose 166 H Lactic Acid Calcium Phosphorus Magnesium Direct Bilirubin AST ALT Alkaline Phosphatase Lactate Dehydrogenase Troponin T C-Reactive Protein Total Protein Albumin Prealbumin Triglycerides Cholesterol LDL Cholesterol Direct HDL Cholesterol Urine pH Urine WBC (Auto) Urine Creatinine Urine Total Protein Fluid Total Protein Vancomycin Trough Rheumatoid Factor Complement C4 Miscellaneous Test Crossmatch 10/14/16 10/14/16 10/14/16 05:38 06:35 08:10 WBC 20.7 H RBC 2.81 L Hgb 8.4 L Hct 27.2 L MCV MCH MCHC RDW 19.4 H Plt Count Lymph % (Auto) [place] % (Auto) Lymph # [place] # Baso # Seg Neutrophils % Seg Neuts % (Manual) Lymphocytes % (Manual) Monocytes % (Manual) Eosinophils % (Manual) Basophils % (Manual) Nucleated RBC % Seg Neutrophils # Seg Neutrophils # Man Lymphocytes # (Manual) Monocytes # (Manual) Eosinophils # (Manual) Basophils # (Manual) PT INR Fibrinogen dRVVT Confirm Interp Factor V Activity POC ABG pH POC ABG pCO2 POC ABG pO2 ABG pO2 ABG HCO3 ABG Base Excess ABG Hemoglobin Oxyhemoglobin Sodium Potassium Chloride Carbon Dioxide BUN 58 H Creatinine 1.9 H Glucose 169 H POC Glucose 195 H Lactic Acid Calcium Phosphorus Magnesium Direct Bilirubin AST ALT Alkaline Phosphatase Lactate Dehydrogenase Troponin T C-Reactive Protein Total Protein Albumin Prealbumin Triglycerides Cholesterol LDL Cholesterol Direct HDL Cholesterol Urine pH Urine WBC (Auto) Urine Creatinine Urine Total Protein Fluid Total Protein Vancomycin Trough Rheumatoid Factor Complement C4 Miscellaneous Test Crossmatch 10/14/16 10/14/16 10/14/16 11:44 17:13 23:28 WBC RBC Hgb Hct MCV MCH MCHC RDW Plt Count Lymph % (Auto) [place] % (Auto) Lymph # [place] # Baso # Seg Neutrophils % Seg Neuts % (Manual) Lymphocytes % (Manual) Monocytes % (Manual) Eosinophils % (Manual) Basophils % (Manual) Nucleated RBC % Seg Neutrophils # Seg Neutrophils # Man Lymphocytes # (Manual) Monocytes # (Manual) Eosinophils # (Manual) Basophils # (Manual) PT INR Fibrinogen dRVVT Confirm Interp Factor V Activity POC ABG pH POC ABG pCO2 POC ABG pO2 ABG pO2 ABG HCO3 ABG Base Excess ABG Hemoglobin Oxyhemoglobin Sodium Potassium Chloride Carbon Dioxide BUN Creatinine Glucose POC Glucose 174 H 121 H 151 H Lactic Acid Calcium Phosphorus Magnesium Direct Bilirubin AST ALT Alkaline Phosphatase Lactate Dehydrogenase Troponin T C-Reactive Protein Total Protein Albumin Prealbumin Triglycerides Cholesterol LDL Cholesterol Direct HDL Cholesterol Urine pH Urine WBC (Auto) Urine Creatinine Urine Total Protein Fluid Total Protein Vancomycin Trough Rheumatoid Factor Complement C4 Miscellaneous Test Crossmatch 10/15/16 10/15/16 10/15/16 05:06 12:26 17:48 WBC RBC Hgb Hct MCV MCH MCHC RDW Plt Count Lymph % (Auto) [place] % (Auto) Lymph # [place] # Baso # Seg Neutrophils % Seg Neuts % (Manual) Lymphocytes % (Manual) Monocytes % (Manual) Eosinophils % (Manual) Basophils % (Manual) Nucleated RBC % Seg Neutrophils # Seg Neutrophils # Man Lymphocytes # (Manual) Monocytes # (Manual) Eosinophils # (Manual) Basophils # (Manual) PT INR Fibrinogen dRVVT Confirm Interp Factor V Activity POC ABG pH POC ABG pCO2 POC ABG pO2 ABG pO2 ABG HCO3 ABG Base Excess ABG Hemoglobin Oxyhemoglobin Sodium Potassium Chloride Carbon Dioxide BUN Creatinine Glucose POC Glucose 151 H 149 H 153 H Lactic Acid Calcium Phosphorus Magnesium Direct Bilirubin AST ALT Alkaline Phosphatase Lactate Dehydrogenase Troponin T C-Reactive Protein Total Protein Albumin Prealbumin Triglycerides Cholesterol LDL Cholesterol Direct HDL Cholesterol Urine pH Urine WBC (Auto) Urine Creatinine Urine Total Protein Fluid Total Protein Vancomycin Trough Rheumatoid Factor Complement C4 Miscellaneous Test Crossmatch 10/15/16 10/15/16 10/16/16 Unknown Unknown 00:02 WBC 23.4 H RBC 2.78 L Hgb 8.5 L Hct 25.7 L MCV MCH MCHC RDW 18.7 H Plt Count Lymph % (Auto) [place] % (Auto) Lymph # [place] # Baso # Seg Neutrophils % Seg Neuts % (Manual) Lymphocytes % (Manual) Monocytes % (Manual) Eosinophils % (Manual) Basophils % (Manual) Nucleated RBC % Seg Neutrophils # Seg Neutrophils # Man Lymphocytes # (Manual) Monocytes # (Manual) Eosinophils # (Manual) Basophils # (Manual) PT INR Fibrinogen dRVVT Confirm Interp Factor V Activity POC ABG pH POC ABG pCO2 POC ABG pO2 ABG pO2 ABG HCO3 ABG Base Excess ABG Hemoglobin Oxyhemoglobin Sodium Potassium Chloride Carbon Dioxide BUN 73 H Creatinine 2.3 H Glucose 120 H POC Glucose 137 H Lactic Acid Calcium Phosphorus Magnesium Direct Bilirubin AST ALT Alkaline Phosphatase Lactate Dehydrogenase Troponin T C-Reactive Protein Total Protein Albumin Prealbumin Triglycerides Cholesterol LDL Cholesterol Direct HDL Cholesterol Urine pH Urine WBC (Auto) Urine Creatinine Urine Total Protein Fluid Total Protein Vancomycin Trough Rheumatoid Factor Complement C4 Miscellaneous Test Crossmatch 10/16/16 10/16/16 10/16/16 05:44 06:25 06:25 WBC 22.5 H RBC 2.76 L Hgb 8.3 L Hct 25.2 L MCV MCH MCHC RDW 18.3 H Plt Count Lymph % (Auto) [place] % (Auto) Lymph # [place] # Baso # Seg Neutrophils % Seg Neuts % (Manual) Lymphocytes % (Manual) Monocytes % (Manual) Eosinophils % (Manual) Basophils % (Manual) Nucleated RBC % Seg Neutrophils # Seg Neutrophils # Man Lymphocytes # (Manual) Monocytes # (Manual) Eosinophils # (Manual) Basophils # (Manual) PT INR Fibrinogen dRVVT Confirm Interp Factor V Activity POC ABG pH POC ABG pCO2 POC ABG pO2 ABG pO2 ABG HCO3 ABG Base Excess ABG Hemoglobin Oxyhemoglobin Sodium Potassium Chloride Carbon Dioxide BUN 92 H Creatinine 3.0 H Glucose 138 H POC Glucose 110 H Lactic Acid Calcium Phosphorus Magnesium Direct Bilirubin AST ALT Alkaline Phosphatase Lactate Dehydrogenase Troponin T C-Reactive Protein Total Protein Albumin Prealbumin Triglycerides Cholesterol LDL Cholesterol Direct HDL Cholesterol Urine pH Urine WBC (Auto) Urine Creatinine Urine Total Protein Fluid Total Protein Vancomycin Trough Rheumatoid Factor Complement C4 Miscellaneous Test Crossmatch 10/16/16 10/16/16 10/16/16 11:27 11:48 17:36 WBC RBC Hgb Hct MCV MCH MCHC RDW Plt Count Lymph % (Auto) [place] % (Auto) Lymph # [place] # Baso # Seg Neutrophils % Seg Neuts % (Manual) Lymphocytes % (Manual) Monocytes % (Manual) Eosinophils % (Manual) Basophils % (Manual) Nucleated RBC % Seg Neutrophils # Seg Neutrophils # Man Lymphocytes # (Manual) Monocytes # (Manual) Eosinophils # (Manual) Basophils # (Manual) PT INR Fibrinogen dRVVT Confirm Interp Factor V Activity POC ABG pH 7.582 H POC ABG pCO2 27.4 L POC ABG pO2 110 H ABG pO2 ABG HCO3 ABG Base Excess ABG Hemoglobin Oxyhemoglobin Sodium Potassium Chloride Carbon Dioxide BUN Creatinine Glucose POC Glucose 121 H 133 H Lactic Acid Calcium Phosphorus Magnesium Direct Bilirubin AST ALT Alkaline Phosphatase Lactate Dehydrogenase Troponin T C-Reactive Protein Total Protein Albumin Prealbumin Triglycerides Cholesterol LDL Cholesterol Direct HDL Cholesterol Urine pH Urine WBC (Auto) Urine Creatinine Urine Total Protein Fluid Total Protein Vancomycin Trough Rheumatoid Factor Complement C4 Miscellaneous Test Crossmatch 10/16/16 10/17/16 10/17/16 20:48 04:24 04:24 WBC 21.4 H RBC 2.72 L Hgb 8.0 L Hct 25.2 L MCV MCH MCHC RDW 18.0 H Plt Count Lymph % (Auto) [place] % (Auto) Lymph # [place] # Baso # Seg Neutrophils % Seg Neuts % (Manual) Lymphocytes % (Manual) Monocytes % (Manual) Eosinophils % (Manual) Basophils % (Manual) Nucleated RBC % Seg Neutrophils # Seg Neutrophils # Man Lymphocytes # (Manual) Monocytes # (Manual) Eosinophils # (Manual) Basophils # (Manual) PT INR Fibrinogen dRVVT Confirm Interp Factor V Activity POC ABG pH 7.561 H POC ABG pCO2 24.4 L POC ABG pO2 77 L ABG pO2 ABG HCO3 ABG Base Excess ABG Hemoglobin Oxyhemoglobin Sodium 148 H Potassium Chloride Carbon Dioxide BUN 104 H Creatinine 3.0 H Glucose 149 H POC Glucose Lactic Acid Calcium Phosphorus Magnesium Direct Bilirubin AST ALT Alkaline Phosphatase 138 H Lactate Dehydrogenase Troponin T C-Reactive Protein Total Protein 6.2 L Albumin 1.5 L Prealbumin Triglycerides Cholesterol LDL Cholesterol Direct HDL Cholesterol Urine pH Urine WBC (Auto) Urine Creatinine Urine Total Protein Fluid Total Protein Vancomycin Trough Rheumatoid Factor Complement C4 Miscellaneous Test Crossmatch 10/17/16 10/17/16 10/17/16 06:02 12:17 17:14 WBC RBC Hgb Hct MCV MCH MCHC RDW Plt Count Lymph % (Auto) [place] % (Auto) Lymph # [place] # Baso # Seg Neutrophils % Seg Neuts % (Manual) Lymphocytes % (Manual) Monocytes % (Manual) Eosinophils % (Manual) Basophils % (Manual) Nucleated RBC % Seg Neutrophils # Seg Neutrophils # Man Lymphocytes # (Manual) Monocytes # (Manual) Eosinophils # (Manual) Basophils # (Manual) PT INR Fibrinogen dRVVT Confirm Interp Factor V Activity POC ABG pH POC ABG pCO2 POC ABG pO2 ABG pO2 ABG HCO3 ABG Base Excess ABG Hemoglobin Oxyhemoglobin Sodium Potassium Chloride Carbon Dioxide BUN Creatinine Glucose POC Glucose 170 H 167 H 126 H Lactic Acid Calcium Phosphorus Magnesium Direct Bilirubin AST ALT Alkaline Phosphatase Lactate Dehydrogenase Troponin T C-Reactive Protein Total Protein Albumin Prealbumin Triglycerides Cholesterol LDL Cholesterol Direct HDL Cholesterol Urine pH Urine WBC (Auto) Urine Creatinine Urine Total Protein Fluid Total Protein Vancomycin Trough Rheumatoid Factor Complement C4 Miscellaneous Test Crossmatch 10/17/16 10/18/16 10/18/16 23:17 04:00 04:00 WBC 20.7 H RBC 2.47 L Hgb 7.4 L Hct 22.9 L MCV MCH MCHC RDW 17.5 H Plt Count Lymph % (Auto) [place] % (Auto) Lymph # [place] # Baso # Seg Neutrophils % Seg Neuts % (Manual) Lymphocytes % (Manual) Monocytes % (Manual) Eosinophils % (Manual) Basophils % (Manual) Nucleated RBC % Seg Neutrophils # Seg Neutrophils # Man Lymphocytes # (Manual) Monocytes # (Manual) Eosinophils # (Manual) Basophils # (Manual) PT INR Fibrinogen dRVVT Confirm Interp Factor V Activity POC ABG pH POC ABG pCO2 POC ABG pO2 ABG pO2 ABG HCO3 ABG Base Excess ABG Hemoglobin Oxyhemoglobin Sodium 149 H Potassium Chloride 107.9 H Carbon Dioxide 20 L BUN 117 H Creatinine 3.2 H Glucose 119 H POC Glucose 121 H Lactic Acid Calcium Phosphorus Magnesium Direct Bilirubin AST ALT Alkaline Phosphatase Lactate Dehydrogenase Troponin T C-Reactive Protein Total Protein Albumin Prealbumin Triglycerides Cholesterol LDL Cholesterol Direct HDL Cholesterol Urine pH Urine WBC (Auto) Urine Creatinine Urine Total Protein Fluid Total Protein Vancomycin Trough Rheumatoid Factor Complement C4 Miscellaneous Test Crossmatch 10/18/16 10/18/16 10/18/16 05:23 10:46 17:30 WBC RBC Hgb Hct MCV MCH MCHC RDW Plt Count Lymph % (Auto) [place] % (Auto) Lymph # [place] # Baso # Seg Neutrophils % Seg Neuts % (Manual) Lymphocytes % (Manual) Monocytes % (Manual) Eosinophils % (Manual) Basophils % (Manual) Nucleated RBC % Seg Neutrophils # Seg Neutrophils # Man Lymphocytes # (Manual) Monocytes # (Manual) Eosinophils # (Manual) Basophils # (Manual) PT INR Fibrinogen dRVVT Confirm Interp Factor V Activity POC ABG pH POC ABG pCO2 POC ABG pO2 ABG pO2 ABG HCO3 ABG Base Excess ABG Hemoglobin Oxyhemoglobin Sodium Potassium Chloride Carbon Dioxide BUN Creatinine Glucose POC Glucose 119 H 155 H 124 H Lactic Acid Calcium Phosphorus Magnesium Direct Bilirubin AST ALT Alkaline Phosphatase Lactate Dehydrogenase Troponin T C-Reactive Protein Total Protein Albumin Prealbumin Triglycerides Cholesterol LDL Cholesterol Direct HDL Cholesterol Urine pH Urine WBC (Auto) Urine Creatinine Urine Total Protein Fluid Total Protein Vancomycin Trough Rheumatoid Factor Complement C4 Miscellaneous Test Crossmatch 10/19/16 10/19/16 10/19/16 04:00 04:00 05:25 WBC 17.4 H RBC 2.54 L Hgb 7.7 L Hct 23.6 L MCV MCH MCHC RDW 17.3 H Plt Count Lymph % (Auto) [place] % (Auto) Lymph # [place] # Baso # Seg Neutrophils % Seg Neuts % (Manual) Lymphocytes % (Manual) Monocytes % (Manual) Eosinophils % (Manual) Basophils % (Manual) Nucleated RBC % Seg Neutrophils # Seg Neutrophils # Man Lymphocytes # (Manual) Monocytes # (Manual) Eosinophils # (Manual) Basophils # (Manual) PT INR Fibrinogen dRVVT Confirm Interp Factor V Activity POC ABG pH POC ABG pCO2 POC ABG pO2 ABG pO2 ABG HCO3 ABG Base Excess ABG Hemoglobin Oxyhemoglobin Sodium Potassium Chloride Carbon Dioxide BUN 72 H Creatinine 2.1 H Glucose 116 H POC Glucose 119 H Lactic Acid Calcium Phosphorus Magnesium Direct Bilirubin AST ALT Alkaline Phosphatase Lactate Dehydrogenase Troponin T C-Reactive Protein Total Protein Albumin Prealbumin Triglycerides Cholesterol LDL Cholesterol Direct HDL Cholesterol Urine pH Urine WBC (Auto) Urine Creatinine Urine Total Protein Fluid Total Protein Vancomycin Trough Rheumatoid Factor Complement C4 Miscellaneous Test Crossmatch 10/19/16 10/19/16 10/20/16 11:46 23:59 06:00 WBC RBC Hgb Hct MCV MCH MCHC RDW Plt Count Lymph % (Auto) [place] % (Auto) Lymph # [place] # Baso # Seg Neutrophils % Seg Neuts % (Manual) Lymphocytes % (Manual) Monocytes % (Manual) Eosinophils % (Manual) Basophils % (Manual) Nucleated RBC % Seg Neutrophils # Seg Neutrophils # Man Lymphocytes # (Manual) Monocytes # (Manual) Eosinophils # (Manual) Basophils # (Manual) PT INR Fibrinogen dRVVT Confirm Interp Factor V Activity POC ABG pH POC ABG pCO2 POC ABG pO2 ABG pO2 ABG HCO3 ABG Base Excess ABG Hemoglobin Oxyhemoglobin Sodium Potassium Chloride Carbon Dioxide 17 L BUN 94 H Creatinine 2.7 H Glucose POC Glucose 116 H 117 H Lactic Acid Calcium Phosphorus Magnesium Direct Bilirubin AST ALT Alkaline Phosphatase Lactate Dehydrogenase Troponin T C-Reactive Protein Total Protein Albumin Prealbumin Triglycerides Cholesterol LDL Cholesterol Direct HDL Cholesterol Urine pH Urine WBC (Auto) Urine Creatinine Urine Total Protein Fluid Total Protein Vancomycin Trough Rheumatoid Factor Complement C4 Miscellaneous Test Crossmatch 10/20/16 10/20/16 10/20/16 06:00 11:49 16:00 WBC 19.7 H RBC 2.51 L Hgb 7.7 L Hct 23.5 L MCV MCH MCHC RDW 17.5 H Plt Count Lymph % (Auto) [place] % (Auto) Lymph # [place] # Baso # Seg Neutrophils % Seg Neuts % (Manual) Lymphocytes % (Manual) Monocytes % (Manual) Eosinophils % (Manual) Basophils % (Manual) Nucleated RBC % Seg Neutrophils # Seg Neutrophils # Man Lymphocytes # (Manual) Monocytes # (Manual) Eosinophils # (Manual) Basophils # (Manual) PT INR Fibrinogen dRVVT Confirm Interp Factor V Activity POC ABG pH POC ABG pCO2 POC ABG pO2 ABG pO2 ABG HCO3 ABG Base Excess ABG Hemoglobin Oxyhemoglobin Sodium Potassium Chloride Carbon Dioxide BUN Creatinine Glucose POC Glucose 117 H Lactic Acid Calcium Phosphorus Magnesium Direct Bilirubin AST ALT Alkaline Phosphatase Lactate Dehydrogenase Troponin T C-Reactive Protein Total Protein Albumin Prealbumin Triglycerides Cholesterol LDL Cholesterol Direct HDL Cholesterol Urine pH Urine WBC (Auto) Urine Creatinine Urine Total Protein Fluid Total Protein Vancomycin Trough Rheumatoid Factor Complement C4 Miscellaneous Test Flexitest 1 H Crossmatch 10/20/16 10/20/16 10/21/16 18:36 23:39 04:00 WBC RBC Hgb Hct MCV MCH MCHC RDW Plt Count Lymph % (Auto) [place] % (Auto) Lymph # [place] # Baso # Seg Neutrophils % Seg Neuts % (Manual) Lymphocytes % (Manual) Monocytes % (Manual) Eosinophils % (Manual) Basophils % (Manual) Nucleated RBC % Seg Neutrophils # Seg Neutrophils # Man Lymphocytes # (Manual) Monocytes # (Manual) Eosinophils # (Manual) Basophils # (Manual) PT INR Fibrinogen dRVVT Confirm Interp Factor V Activity POC ABG pH POC ABG pCO2 POC ABG pO2 ABG pO2 ABG HCO3 ABG Base Excess ABG Hemoglobin Oxyhemoglobin Sodium Potassium 5.4 H D Chloride Carbon Dioxide 15 L BUN 110 H Creatinine 3.0 H Glucose POC Glucose 127 H 114 H Lactic Acid Calcium Phosphorus Magnesium Direct Bilirubin AST ALT Alkaline Phosphatase Lactate Dehydrogenase Troponin T C-Reactive Protein Total Protein Albumin Prealbumin Triglycerides Cholesterol LDL Cholesterol Direct HDL Cholesterol Urine pH Urine WBC (Auto) Urine Creatinine Urine Total Protein Fluid Total Protein Vancomycin Trough Rheumatoid Factor Complement C4 Miscellaneous Test Crossmatch 10/21/16 10/21/16 10/22/16 05:54 23:46 05:18 WBC RBC Hgb Hct MCV MCH MCHC RDW Plt Count Lymph % (Auto) [place] % (Auto) Lymph # [place] # Baso # Seg Neutrophils % Seg Neuts % (Manual) Lymphocytes % (Manual) Monocytes % (Manual) Eosinophils % (Manual) Basophils % (Manual) Nucleated RBC % Seg Neutrophils # Seg Neutrophils # Man Lymphocytes # (Manual) Monocytes # (Manual) Eosinophils # (Manual) Basophils # (Manual) PT INR Fibrinogen dRVVT Confirm Interp Factor V Activity POC ABG pH POC ABG pCO2 POC ABG pO2 ABG pO2 ABG HCO3 ABG Base Excess ABG Hemoglobin Oxyhemoglobin Sodium Potassium Chloride Carbon Dioxide BUN Creatinine Glucose POC Glucose 119 H 108 H 109 H Lactic Acid Calcium Phosphorus Magnesium Direct Bilirubin AST ALT Alkaline Phosphatase Lactate Dehydrogenase Troponin T C-Reactive Protein Total Protein Albumin Prealbumin Triglycerides Cholesterol LDL Cholesterol Direct HDL Cholesterol Urine pH Urine WBC (Auto) Urine Creatinine Urine Total Protein Fluid Total Protein Vancomycin Trough Rheumatoid Factor Complement C4 Miscellaneous Test Crossmatch 10/22/16 10/22/16 10/22/16 06:40 06:40 06:40 WBC 14.0 H RBC 2.03 L Hgb 7.0 L Hct 20.5 L MCV 98 H MCH 34 H MCHC 35 H RDW 17.8 H Plt Count Lymph % (Auto) [place] % (Auto) 9.9 H Lymph # [place] # 1.4 H Baso # 0.2 H Seg Neutrophils % 72.0 H Seg Neuts % (Manual) Lymphocytes % (Manual) Monocytes % (Manual) Eosinophils % (Manual) Basophils % (Manual) Nucleated RBC % Seg Neutrophils # 10.0 H Seg Neutrophils # Man Lymphocytes # (Manual) Monocytes # (Manual) Eosinophils # (Manual) Basophils # (Manual) PT INR Fibrinogen dRVVT Confirm Interp Factor V Activity POC ABG pH POC ABG pCO2 POC ABG pO2 ABG pO2 ABG HCO3 ABG Base Excess ABG Hemoglobin Oxyhemoglobin Sodium 130 L D Potassium Chloride 92.4 L Carbon Dioxide 20 L BUN 50 H Creatinine 1.6 H Glucose 589 H* POC Glucose Lactic Acid Calcium 7.8 L D Phosphorus Magnesium 1.60 L Direct Bilirubin AST ALT Alkaline Phosphatase Lactate Dehydrogenase Troponin T C-Reactive Protein Total Protein Albumin Prealbumin Triglycerides Cholesterol LDL Cholesterol Direct HDL Cholesterol Urine pH Urine WBC (Auto) Urine Creatinine Urine Total Protein Fluid Total Protein Vancomycin Trough Rheumatoid Factor Complement C4 Miscellaneous Test Crossmatch 10/22/16 10/22/16 10/22/16 11:39 16:44 23:36 WBC RBC Hgb Hct MCV MCH MCHC RDW Plt Count Lymph % (Auto) [place] % (Auto) Lymph # [place] # Baso # Seg Neutrophils % Seg Neuts % (Manual) Lymphocytes % (Manual) Monocytes % (Manual) Eosinophils % (Manual) Basophils % (Manual) Nucleated RBC % Seg Neutrophils # Seg Neutrophils # Man Lymphocytes # (Manual) Monocytes # (Manual) Eosinophils # (Manual) Basophils # (Manual) PT INR Fibrinogen dRVVT Confirm Interp Factor V Activity POC ABG pH POC ABG pCO2 POC ABG pO2 ABG pO2 ABG HCO3 ABG Base Excess ABG Hemoglobin Oxyhemoglobin Sodium Potassium Chloride Carbon Dioxide BUN Creatinine Glucose POC Glucose 142 H 163 H 123 H Lactic Acid Calcium Phosphorus Magnesium Direct Bilirubin AST ALT Alkaline Phosphatase Lactate Dehydrogenase Troponin T C-Reactive Protein Total Protein Albumin Prealbumin Triglycerides Cholesterol LDL Cholesterol Direct HDL Cholesterol Urine pH Urine WBC (Auto) Urine Creatinine Urine Total Protein Fluid Total Protein Vancomycin Trough Rheumatoid Factor Complement C4 Miscellaneous Test Crossmatch 10/23/16 10/23/16 10/23/16 04:58 06:00 12:12 WBC RBC Hgb Hct MCV MCH MCHC RDW Plt Count Lymph % (Auto) [place] % (Auto) Lymph # [place] # Baso # Seg Neutrophils % Seg Neuts % (Manual) Lymphocytes % (Manual) Monocytes % (Manual) Eosinophils % (Manual) Basophils % (Manual) Nucleated RBC % Seg Neutrophils # Seg Neutrophils # Man Lymphocytes # (Manual) Monocytes # (Manual) Eosinophils # (Manual) Basophils # (Manual) PT INR Fibrinogen dRVVT Confirm Interp Factor V Activity POC ABG pH POC ABG pCO2 POC ABG pO2 ABG pO2 ABG HCO3 ABG Base Excess ABG Hemoglobin Oxyhemoglobin Sodium 133 L Potassium 3.5 L Chloride 96.1 L Carbon Dioxide 18 L BUN 76 H Creatinine 2.1 H Glucose POC Glucose 133 H 138 H Lactic Acid Calcium 8.3 L Phosphorus Magnesium Direct Bilirubin AST ALT Alkaline Phosphatase Lactate Dehydrogenase Troponin T C-Reactive Protein Total Protein Albumin Prealbumin Triglycerides Cholesterol LDL Cholesterol Direct HDL Cholesterol Urine pH Urine WBC (Auto) Urine Creatinine Urine Total Protein Fluid Total Protein Vancomycin Trough Rheumatoid Factor Complement C4 Miscellaneous Test Crossmatch 10/23/16 10/23/16 10/24/16 16:53 23:37 04:00 WBC RBC Hgb Hct MCV MCH MCHC RDW Plt Count Lymph % (Auto) [place] % (Auto) Lymph # [place] # Baso # Seg Neutrophils % Seg Neuts % (Manual) Lymphocytes % (Manual) Monocytes % (Manual) Eosinophils % (Manual) Basophils % (Manual) Nucleated RBC % Seg Neutrophils # Seg Neutrophils # Man Lymphocytes # (Manual) Monocytes # (Manual) Eosinophils # (Manual) Basophils # (Manual) PT INR Fibrinogen dRVVT Confirm Interp Factor V Activity POC ABG pH POC ABG pCO2 POC ABG pO2 ABG pO2 ABG HCO3 ABG Base Excess ABG Hemoglobin Oxyhemoglobin Sodium 131 L Potassium Chloride 94.5 L Carbon Dioxide 19 L BUN 97 H Creatinine 2.6 H Glucose 110 H POC Glucose 125 H 123 H Lactic Acid Calcium 8.3 L Phosphorus Magnesium Direct Bilirubin AST ALT Alkaline Phosphatase Lactate Dehydrogenase Troponin T C-Reactive Protein Total Protein Albumin Prealbumin Triglycerides Cholesterol LDL Cholesterol Direct HDL Cholesterol Urine pH Urine WBC (Auto) Urine Creatinine Urine Total Protein Fluid Total Protein Vancomycin Trough Rheumatoid Factor Complement C4 Miscellaneous Test Crossmatch 10/24/16 10/24/16 10/24/16 07:49 11:39 17:52 WBC RBC Hgb 6.0 L Hct 19.7 L* MCV MCH MCHC RDW Plt Count Lymph % (Auto) [place] % (Auto) Lymph # [place] # Baso # Seg Neutrophils % Seg Neuts % (Manual) Lymphocytes % (Manual) Monocytes % (Manual) Eosinophils % (Manual) Basophils % (Manual) Nucleated RBC % Seg Neutrophils # Seg Neutrophils # Man Lymphocytes # (Manual) Monocytes # (Manual) Eosinophils # (Manual) Basophils # (Manual) PT INR Fibrinogen dRVVT Confirm Interp Factor V Activity POC ABG pH POC ABG pCO2 POC ABG pO2 ABG pO2 ABG HCO3 ABG Base Excess ABG Hemoglobin Oxyhemoglobin Sodium Potassium Chloride Carbon Dioxide BUN Creatinine Glucose POC Glucose 106 H 158 H Lactic Acid Calcium Phosphorus Magnesium Direct Bilirubin AST ALT Alkaline Phosphatase Lactate Dehydrogenase Troponin T C-Reactive Protein Total Protein Albumin Prealbumin Triglycerides Cholesterol LDL Cholesterol Direct HDL Cholesterol Urine pH Urine WBC (Auto) Urine Creatinine Urine Total Protein Fluid Total Protein Vancomycin Trough Rheumatoid Factor Complement C4 Miscellaneous Test Crossmatch 10/24/16 10/24/16 10/24/16 20:00 22:27 Unknown WBC RBC Hgb 9.4 L D Hct 27.5 L D MCV MCH MCHC RDW Plt Count Lymph % (Auto) [place] % (Auto) Lymph # [place] # Baso # Seg Neutrophils % Seg Neuts % (Manual) Lymphocytes % (Manual) Monocytes % (Manual) Eosinophils % (Manual) Basophils % (Manual) Nucleated RBC % Seg Neutrophils # Seg Neutrophils # Man Lymphocytes # (Manual) Monocytes # (Manual) Eosinophils # (Manual) Basophils # (Manual) PT INR Fibrinogen dRVVT Confirm Interp Factor V Activity POC ABG pH POC ABG pCO2 POC ABG pO2 ABG pO2 ABG HCO3 ABG Base Excess ABG Hemoglobin Oxyhemoglobin Sodium Potassium Chloride Carbon Dioxide BUN Creatinine Glucose POC Glucose 125 H Lactic Acid Calcium Phosphorus Magnesium Direct Bilirubin AST ALT Alkaline Phosphatase Lactate Dehydrogenase Troponin T C-Reactive Protein Total Protein Albumin Prealbumin Triglycerides Cholesterol LDL Cholesterol Direct HDL Cholesterol Urine pH Urine WBC (Auto) Urine Creatinine Urine Total Protein Fluid Total Protein Vancomycin Trough Rheumatoid Factor Complement C4 Miscellaneous Test Crossmatch See Detail 10/25/16 10/25/16 10/25/16 04:00 04:00 04:00 WBC 14.2 H RBC 2.98 L Hgb 9.0 L Hct 26.2 L MCV MCH MCHC RDW 16.6 H Plt Count Lymph % (Auto) [place] % (Auto) 10.7 H Lymph # [place] # 1.5 H Baso # Seg Neutrophils % 73.6 H Seg Neuts % (Manual) Lymphocytes % (Manual) Monocytes % (Manual) Eosinophils % (Manual) Basophils % (Manual) Nucleated RBC % Seg Neutrophils # 10.5 H Seg Neutrophils # Man Lymphocytes # (Manual) Monocytes # (Manual) Eosinophils # (Manual) Basophils # (Manual) PT INR Fibrinogen dRVVT Confirm Interp Factor V Activity POC ABG pH POC ABG pCO2 POC ABG pO2 ABG pO2 ABG HCO3 ABG Base Excess ABG Hemoglobin Oxyhemoglobin Sodium 132 L Potassium Chloride 94.7 L Carbon Dioxide BUN 51 H Creatinine 1.6 H Glucose 130 H POC Glucose Lactic Acid Calcium 8.3 L Phosphorus 1.60 L D Magnesium Direct Bilirubin AST ALT Alkaline Phosphatase Lactate Dehydrogenase Troponin T C-Reactive Protein Total Protein Albumin Prealbumin Triglycerides Cholesterol LDL Cholesterol Direct HDL Cholesterol Urine pH Urine WBC (Auto) Urine Creatinine Urine Total Protein Fluid Total Protein Vancomycin Trough Rheumatoid Factor Complement C4 Miscellaneous Test Crossmatch 10/25/16 10/25/16 10/25/16 04:32 11:48 17:22 WBC RBC Hgb Hct MCV MCH MCHC RDW Plt Count Lymph % (Auto) [place] % (Auto) Lymph # [place] # Baso # Seg Neutrophils % Seg Neuts % (Manual) Lymphocytes % (Manual) Monocytes % (Manual) Eosinophils % (Manual) Basophils % (Manual) Nucleated RBC % Seg Neutrophils # Seg Neutrophils # Man Lymphocytes # (Manual) Monocytes # (Manual) Eosinophils # (Manual) Basophils # (Manual) PT INR Fibrinogen dRVVT Confirm Interp Factor V Activity POC ABG pH POC ABG pCO2 POC ABG pO2 ABG pO2 ABG HCO3 ABG Base Excess ABG Hemoglobin Oxyhemoglobin Sodium Potassium Chloride Carbon Dioxide BUN Creatinine Glucose POC Glucose 124 H 171 H 120 H Lactic Acid Calcium Phosphorus Magnesium Direct Bilirubin AST ALT Alkaline Phosphatase Lactate Dehydrogenase Troponin T C-Reactive Protein Total Protein Albumin Prealbumin Triglycerides Cholesterol LDL Cholesterol Direct HDL Cholesterol Urine pH Urine WBC (Auto) Urine Creatinine Urine Total Protein Fluid Total Protein Vancomycin Trough Rheumatoid Factor Complement C4 Miscellaneous Test Crossmatch 10/26/16 10/26/16 10/26/16 04:54 07:06 07:06 WBC 16.9 H RBC 3.06 L Hgb 9.1 L Hct 26.9 L MCV MCH MCHC RDW 16.9 H Plt Count Lymph % (Auto) [place] % (Auto) Lymph # [place] # Baso # Seg Neutrophils % Seg Neuts % (Manual) 71.0 H Lymphocytes % (Manual) 5.0 L Monocytes % (Manual) 12.0 H Eosinophils % (Manual) Basophils % (Manual) Nucleated RBC % Seg Neutrophils # Seg Neutrophils # Man 12.0 H Lymphocytes # (Manual) 0.8 L Monocytes # (Manual) 2.0 H Eosinophils # (Manual) Basophils # (Manual) PT INR Fibrinogen dRVVT Confirm Interp Factor V Activity POC ABG pH POC ABG pCO2 POC ABG pO2 ABG pO2 ABG HCO3 ABG Base Excess ABG Hemoglobin Oxyhemoglobin Sodium 135 L Potassium Chloride 97.1 L Carbon Dioxide BUN 73 H Creatinine 2.2 H Glucose 117 H POC Glucose 123 H Lactic Acid Calcium Phosphorus 1.70 L Magnesium Direct Bilirubin AST ALT Alkaline Phosphatase Lactate Dehydrogenase Troponin T C-Reactive Protein Total Protein Albumin Prealbumin Triglycerides Cholesterol LDL Cholesterol Direct HDL Cholesterol Urine pH Urine WBC (Auto) Urine Creatinine Urine Total Protein Fluid Total Protein Vancomycin Trough Rheumatoid Factor Complement C4 Miscellaneous Test Crossmatch 10/26/16 10/26/16 10/26/16 12:12 17:29 23:42 WBC RBC Hgb Hct MCV MCH MCHC RDW Plt Count Lymph % (Auto) [place] % (Auto) Lymph # [place] # Baso # Seg Neutrophils % Seg Neuts % (Manual) Lymphocytes % (Manual) Monocytes % (Manual) Eosinophils % (Manual) Basophils % (Manual) Nucleated RBC % Seg Neutrophils # Seg Neutrophils # Man Lymphocytes # (Manual) Monocytes # (Manual) Eosinophils # (Manual) Basophils # (Manual) PT INR Fibrinogen dRVVT Confirm Interp Factor V Activity POC ABG pH POC ABG pCO2 POC ABG pO2 ABG pO2 ABG HCO3 ABG Base Excess ABG Hemoglobin Oxyhemoglobin Sodium Potassium Chloride Carbon Dioxide BUN Creatinine Glucose POC Glucose 126 H 161 H 118 H Lactic Acid Calcium Phosphorus Magnesium Direct Bilirubin AST ALT Alkaline Phosphatase Lactate Dehydrogenase Troponin T C-Reactive Protein Total Protein Albumin Prealbumin Triglycerides Cholesterol LDL Cholesterol Direct HDL Cholesterol Urine pH Urine WBC (Auto) Urine Creatinine Urine Total Protein Fluid Total Protein Vancomycin Trough Rheumatoid Factor Complement C4 Miscellaneous Test Crossmatch 10/27/16 10/27/16 10/27/16 05:03 06:30 06:30 WBC 13.9 H RBC 3.09 L Hgb 9.2 L Hct 27.5 L MCV MCH MCHC RDW 17.0 H Plt Count Lymph % (Auto) [place] % (Auto) Lymph # [place] # Baso # Seg Neutrophils % Seg Neuts % (Manual) 78.0 H Lymphocytes % (Manual) Monocytes % (Manual) Eosinophils % (Manual) Basophils % (Manual) Nucleated RBC % 2.0 H Seg Neutrophils # Seg Neutrophils # Man 10.8 H Lymphocytes # (Manual) Monocytes # (Manual) 1.0 H Eosinophils # (Manual) Basophils # (Manual) PT INR Fibrinogen dRVVT Confirm Interp Factor V Activity POC ABG pH POC ABG pCO2 POC ABG pO2 ABG pO2 ABG HCO3 ABG Base Excess ABG Hemoglobin Oxyhemoglobin Sodium Potassium Chloride Carbon Dioxide BUN 40 H Creatinine 1.5 H Glucose 135 H POC Glucose 107 H Lactic Acid Calcium 8.3 L Phosphorus 1.30 L D Magnesium Direct Bilirubin AST ALT Alkaline Phosphatase Lactate Dehydrogenase Troponin T C-Reactive Protein Total Protein Albumin Prealbumin Triglycerides Cholesterol LDL Cholesterol Direct HDL Cholesterol Urine pH Urine WBC (Auto) Urine Creatinine Urine Total Protein Fluid Total Protein Vancomycin Trough Rheumatoid Factor Complement C4 Miscellaneous Test Crossmatch 10/27/16 10/27/16 10/27/16 13:27 18:07 23:40 WBC RBC Hgb Hct MCV MCH MCHC RDW Plt Count Lymph % (Auto) [place] % (Auto) Lymph # [place] # Baso # Seg Neutrophils % Seg Neuts % (Manual) Lymphocytes % (Manual) Monocytes % (Manual) Eosinophils % (Manual) Basophils % (Manual) Nucleated RBC % Seg Neutrophils # Seg Neutrophils # Man Lymphocytes # (Manual) Monocytes # (Manual) Eosinophils # (Manual) Basophils # (Manual) PT INR Fibrinogen dRVVT Confirm Interp Factor V Activity POC ABG pH POC ABG pCO2 POC ABG pO2 ABG pO2 ABG HCO3 ABG Base Excess ABG Hemoglobin Oxyhemoglobin Sodium Potassium Chloride Carbon Dioxide BUN Creatinine Glucose POC Glucose 117 H 121 H 118 H Lactic Acid Calcium Phosphorus Magnesium Direct Bilirubin AST ALT Alkaline Phosphatase Lactate Dehydrogenase Troponin T C-Reactive Protein Total Protein Albumin Prealbumin Triglycerides Cholesterol LDL Cholesterol Direct HDL Cholesterol Urine pH Urine WBC (Auto) Urine Creatinine Urine Total Protein Fluid Total Protein Vancomycin Trough Rheumatoid Factor Complement C4 Miscellaneous Test Crossmatch 10/28/16 10/28/16 10/28/16 05:48 06:45 06:45 WBC 14.7 H RBC 3.05 L Hgb 9.0 L Hct 26.9 L MCV MCH MCHC RDW 16.8 H Plt Count Lymph % (Auto) 8.2 L [place] % (Auto) 8.4 H Lymph # [place] # 1.2 H Baso # Seg Neutrophils % 81.9 H Seg Neuts % (Manual) Lymphocytes % (Manual) Monocytes % (Manual) Eosinophils % (Manual) Basophils % (Manual) Nucleated RBC % Seg Neutrophils # 12.1 H Seg Neutrophils # Man Lymphocytes # (Manual) Monocytes # (Manual) Eosinophils # (Manual) Basophils # (Manual) PT INR Fibrinogen dRVVT Confirm Interp Factor V Activity POC ABG pH POC ABG pCO2 POC ABG pO2 ABG pO2 ABG HCO3 ABG Base Excess ABG Hemoglobin Oxyhemoglobin Sodium Potassium Chloride Carbon Dioxide BUN 60 H Creatinine 1.9 H Glucose 120 H POC Glucose 114 H Lactic Acid Calcium Phosphorus Magnesium Direct Bilirubin AST ALT Alkaline Phosphatase Lactate Dehydrogenase Troponin T C-Reactive Protein Total Protein Albumin Prealbumin Triglycerides Cholesterol LDL Cholesterol Direct HDL Cholesterol Urine pH Urine WBC (Auto) Urine Creatinine Urine Total Protein Fluid Total Protein Vancomycin Trough Rheumatoid Factor Complement C4 Miscellaneous Test Crossmatch 10/28/16 10/28/16 10/29/16 17:08 23:50 05:10 WBC RBC Hgb Hct MCV MCH MCHC RDW Plt Count Lymph % (Auto) [place] % (Auto) Lymph # [place] # Baso # Seg Neutrophils % Seg Neuts % (Manual) Lymphocytes % (Manual) Monocytes % (Manual) Eosinophils % (Manual) Basophils % (Manual) Nucleated RBC % Seg Neutrophils # Seg Neutrophils # Man Lymphocytes # (Manual) Monocytes # (Manual) Eosinophils # (Manual) Basophils # (Manual) PT INR Fibrinogen dRVVT Confirm Interp Factor V Activity POC ABG pH POC ABG pCO2 POC ABG pO2 ABG pO2 ABG HCO3 ABG Base Excess ABG Hemoglobin Oxyhemoglobin Sodium Potassium Chloride Carbon Dioxide BUN Creatinine Glucose POC Glucose 109 H 110 H 124 H Lactic Acid Calcium Phosphorus Magnesium Direct Bilirubin AST ALT Alkaline Phosphatase Lactate Dehydrogenase Troponin T C-Reactive Protein Total Protein Albumin Prealbumin Triglycerides Cholesterol LDL Cholesterol Direct HDL Cholesterol Urine pH Urine WBC (Auto) Urine Creatinine Urine Total Protein Fluid Total Protein Vancomycin Trough Rheumatoid Factor Complement C4 Miscellaneous Test Crossmatch 10/29/16 10/29/16 10/29/16 07:45 07:45 12:19 WBC 14.7 H RBC 3.15 L Hgb 9.3 L Hct 28.9 L MCV MCH MCHC RDW 17.0 H Plt Count Lymph % (Auto) 11.9 L [place] % (Auto) 8.6 H Lymph # [place] # 1.3 H Baso # Seg Neutrophils % 78.1 H Seg Neuts % (Manual) Lymphocytes % (Manual) Monocytes % (Manual) Eosinophils % (Manual) Basophils % (Manual) Nucleated RBC % Seg Neutrophils # 11.4 H Seg Neutrophils # Man Lymphocytes # (Manual) Monocytes # (Manual) Eosinophils # (Manual) Basophils # (Manual) PT INR Fibrinogen dRVVT Confirm Interp Factor V Activity POC ABG pH POC ABG pCO2 POC ABG pO2 ABG pO2 ABG HCO3 ABG Base Excess ABG Hemoglobin Oxyhemoglobin Sodium Potassium 5.1 H Chloride Carbon Dioxide 19 L BUN 78 H Creatinine 2.2 H Glucose 116 H POC Glucose 118 H Lactic Acid Calcium Phosphorus Magnesium Direct Bilirubin AST ALT Alkaline Phosphatase Lactate Dehydrogenase Troponin T C-Reactive Protein Total Protein Albumin Prealbumin Triglycerides Cholesterol LDL Cholesterol Direct HDL Cholesterol Urine pH Urine WBC (Auto) Urine Creatinine Urine Total Protein Fluid Total Protein Vancomycin Trough Rheumatoid Factor Complement C4 Miscellaneous Test Crossmatch 10/29/16 10/30/16 10/30/16 17:49 01:52 03:28 WBC RBC Hgb Hct MCV MCH MCHC RDW Plt Count Lymph % (Auto) [place] % (Auto) Lymph # [place] # Baso # Seg Neutrophils % Seg Neuts % (Manual) Lymphocytes % (Manual) Monocytes % (Manual) Eosinophils % (Manual) Basophils % (Manual) Nucleated RBC % Seg Neutrophils # Seg Neutrophils # Man Lymphocytes # (Manual) Monocytes # (Manual) Eosinophils # (Manual) Basophils # (Manual) PT INR Fibrinogen dRVVT Confirm Interp Factor V Activity POC ABG pH POC ABG pCO2 POC ABG pO2 ABG pO2 ABG HCO3 ABG Base Excess ABG Hemoglobin Oxyhemoglobin Sodium Potassium 5.4 H Chloride 97.5 L Carbon Dioxide 19 L BUN 90 H Creatinine 2.5 H Glucose POC Glucose 120 H 129 H Lactic Acid Calcium Phosphorus 5.20 H Magnesium Direct Bilirubin AST ALT Alkaline Phosphatase Lactate Dehydrogenase Troponin T C-Reactive Protein Total Protein Albumin Prealbumin Triglycerides Cholesterol LDL Cholesterol Direct HDL Cholesterol Urine pH Urine WBC (Auto) Urine Creatinine Urine Total Protein Fluid Total Protein Vancomycin Trough Rheumatoid Factor Complement C4 Miscellaneous Test Crossmatch 10/30/16 10/30/16 10/30/16 03:28 08:19 08:19 WBC 11.6 H 15.9 H RBC 2.75 L 2.82 L Hgb 7.9 L 8.3 L Hct 24.2 L 25.2 L MCV MCH MCHC RDW 16.7 H 17.2 H Plt Count Lymph % (Auto) [place] % (Auto) 9.8 H Lymph # [place] # 1.1 H Baso # Seg Neutrophils % 74.2 H Seg Neuts % (Manual) Lymphocytes % (Manual) Monocytes % (Manual) Eosinophils % (Manual) Basophils % (Manual) Nucleated RBC % Seg Neutrophils # 8.6 H Seg Neutrophils # Man Lymphocytes # (Manual) Monocytes # (Manual) Eosinophils # (Manual) Basophils # (Manual) PT INR Fibrinogen dRVVT Confirm Interp Factor V Activity POC ABG pH POC ABG pCO2 POC ABG pO2 ABG pO2 ABG HCO3 ABG Base Excess ABG Hemoglobin Oxyhemoglobin Sodium Potassium 5.3 H Chloride 97.4 L Carbon Dioxide 19 L BUN 93 H Creatinine 2.6 H Glucose POC Glucose Lactic Acid Calcium Phosphorus Magnesium Direct Bilirubin AST ALT Alkaline Phosphatase Lactate Dehydrogenase Troponin T C-Reactive Protein Total Protein Albumin Prealbumin Triglycerides Cholesterol LDL Cholesterol Direct HDL Cholesterol Urine pH Urine WBC (Auto) Urine Creatinine Urine Total Protein Fluid Total Protein Vancomycin Trough Rheumatoid Factor Complement C4 Miscellaneous Test Crossmatch 10/30/16 10/30/16 10/31/16 17:11 23:56 00:40 WBC RBC Hgb Hct MCV MCH MCHC RDW Plt Count Lymph % (Auto) [place] % (Auto) Lymph # [place] # Baso # Seg Neutrophils % Seg Neuts % (Manual) Lymphocytes % (Manual) Monocytes % (Manual) Eosinophils % (Manual) Basophils % (Manual) Nucleated RBC % Seg Neutrophils # Seg Neutrophils # Man Lymphocytes # (Manual) Monocytes # (Manual) Eosinophils # (Manual) Basophils # (Manual) PT INR Fibrinogen dRVVT Confirm Interp Factor V Activity POC ABG pH POC ABG pCO2 POC ABG pO2 ABG pO2 ABG HCO3 ABG Base Excess ABG Hemoglobin Oxyhemoglobin Sodium Potassium Chloride Carbon Dioxide BUN Creatinine Glucose POC Glucose 106 H 117 H 120 H Lactic Acid Calcium Phosphorus Magnesium Direct Bilirubin AST ALT Alkaline Phosphatase Lactate Dehydrogenase Troponin T C-Reactive Protein Total Protein Albumin Prealbumin Triglycerides Cholesterol LDL Cholesterol Direct HDL Cholesterol Urine pH Urine WBC (Auto) Urine Creatinine Urine Total Protein Fluid Total Protein Vancomycin Trough Rheumatoid Factor Complement C4 Miscellaneous Test Crossmatch 10/31/16 10/31/16 10/31/16 05:43 07:15 07:15 WBC 12.1 H RBC 2.63 L Hgb 7.7 L Hct 23.3 L MCV MCH MCHC RDW 16.7 H Plt Count Lymph % (Auto) 11.7 L [place] % (Auto) 7.7 H Lymph # [place] # 0.9 H Baso # Seg Neutrophils % 78.0 H Seg Neuts % (Manual) Lymphocytes % (Manual) Monocytes % (Manual) Eosinophils % (Manual) Basophils % (Manual) Nucleated RBC % Seg Neutrophils # 9.4 H Seg Neutrophils # Man Lymphocytes # (Manual) Monocytes # (Manual) Eosinophils # (Manual) Basophils # (Manual) PT INR Fibrinogen dRVVT Confirm Interp Factor V Activity POC ABG pH POC ABG pCO2 POC ABG pO2 ABG pO2 ABG HCO3 ABG Base Excess ABG Hemoglobin Oxyhemoglobin Sodium Potassium Chloride 96.4 L Carbon Dioxide 21 L BUN 99 H Creatinine 2.6 H Glucose 144 H POC Glucose 125 H Lactic Acid Calcium Phosphorus 4.80 H Magnesium Direct Bilirubin AST ALT Alkaline Phosphatase Lactate Dehydrogenase Troponin T C-Reactive Protein Total Protein Albumin Prealbumin Triglycerides Cholesterol LDL Cholesterol Direct HDL Cholesterol Urine pH Urine WBC (Auto) Urine Creatinine Urine Total Protein Fluid Total Protein Vancomycin Trough Rheumatoid Factor Complement C4 Miscellaneous Test Crossmatch 10/31/16 10/31/16 11/01/16 11:46 18:34 00:20 WBC RBC Hgb Hct MCV MCH MCHC RDW Plt Count Lymph % (Auto) [place] % (Auto) Lymph # [place] # Baso # Seg Neutrophils % Seg Neuts % (Manual) Lymphocytes % (Manual) Monocytes % (Manual) Eosinophils % (Manual) Basophils % (Manual) Nucleated RBC % Seg Neutrophils # Seg Neutrophils # Man Lymphocytes # (Manual) Monocytes # (Manual) Eosinophils # (Manual) Basophils # (Manual) PT INR Fibrinogen dRVVT Confirm Interp Factor V Activity POC ABG pH POC ABG pCO2 POC ABG pO2 ABG pO2 ABG HCO3 ABG Base Excess ABG Hemoglobin Oxyhemoglobin Sodium Potassium Chloride Carbon Dioxide BUN Creatinine Glucose POC Glucose 159 H 140 H 132 H Lactic Acid Calcium Phosphorus Magnesium Direct Bilirubin AST ALT Alkaline Phosphatase Lactate Dehydrogenase Troponin T C-Reactive Protein Total Protein Albumin Prealbumin Triglycerides Cholesterol LDL Cholesterol Direct HDL Cholesterol Urine pH Urine WBC (Auto) Urine Creatinine Urine Total Protein Fluid Total Protein Vancomycin Trough Rheumatoid Factor Complement C4 Miscellaneous Test Crossmatch 11/01/16 11/01/16 11/01/16 04:55 04:55 06:11 WBC 11.2 H RBC 2.68 L Hgb 7.5 L Hct 23.7 L MCV MCH MCHC RDW 16.1 H Plt Count Lymph % (Auto) [place] % (Auto) 9.8 H Lymph # [place] # 1.1 H Baso # Seg Neutrophils % 70.8 H Seg Neuts % (Manual) Lymphocytes % (Manual) Monocytes % (Manual) Eosinophils % (Manual) Basophils % (Manual) Nucleated RBC % Seg Neutrophils # 7.9 H Seg Neutrophils # Man Lymphocytes # (Manual) Monocytes # (Manual) Eosinophils # (Manual) Basophils # (Manual) PT INR Fibrinogen dRVVT Confirm Interp Factor V Activity POC ABG pH POC ABG pCO2 POC ABG pO2 ABG pO2 ABG HCO3 ABG Base Excess ABG Hemoglobin Oxyhemoglobin Sodium Potassium 3.3 L D Chloride Carbon Dioxide BUN 61 H Creatinine 1.9 H Glucose 114 H POC Glucose 115 H Lactic Acid Calcium Phosphorus 1.80 L D Magnesium Direct Bilirubin AST ALT Alkaline Phosphatase Lactate Dehydrogenase Troponin T C-Reactive Protein Total Protein Albumin Prealbumin Triglycerides Cholesterol LDL Cholesterol Direct HDL Cholesterol Urine pH Urine WBC (Auto) Urine Creatinine Urine Total Protein Fluid Total Protein Vancomycin Trough Rheumatoid Factor Complement C4 Miscellaneous Test Crossmatch 11/01/16 11/01/16 11/01/16 12:29 18:23 23:58 WBC RBC Hgb Hct MCV MCH MCHC RDW Plt Count Lymph % (Auto) [place] % (Auto) Lymph # [place] # Baso # Seg Neutrophils % Seg Neuts % (Manual) Lymphocytes % (Manual) Monocytes % (Manual) Eosinophils % (Manual) Basophils % (Manual) Nucleated RBC % Seg Neutrophils # Seg Neutrophils # Man Lymphocytes # (Manual) Monocytes # (Manual) Eosinophils # (Manual) Basophils # (Manual) PT INR Fibrinogen dRVVT Confirm Interp Factor V Activity POC ABG pH POC ABG pCO2 POC ABG pO2 ABG pO2 ABG HCO3 ABG Base Excess ABG Hemoglobin Oxyhemoglobin Sodium Potassium Chloride Carbon Dioxide BUN Creatinine Glucose POC Glucose 142 H 143 H 128 H Lactic Acid Calcium Phosphorus Magnesium Direct Bilirubin AST ALT Alkaline Phosphatase Lactate Dehydrogenase Troponin T C-Reactive Protein Total Protein Albumin Prealbumin Triglycerides Cholesterol LDL Cholesterol Direct HDL Cholesterol Urine pH Urine WBC (Auto) Urine Creatinine Urine Total Protein Fluid Total Protein Vancomycin Trough Rheumatoid Factor Complement C4 Miscellaneous Test Crossmatch 11/02/16 11/02/16 11/02/16 04:16 05:29 11:58 WBC RBC Hgb Hct MCV MCH MCHC RDW Plt Count Lymph % (Auto) [place] % (Auto) Lymph # [place] # Baso # Seg Neutrophils % Seg Neuts % (Manual) Lymphocytes % (Manual) Monocytes % (Manual) Eosinophils % (Manual) Basophils % (Manual) Nucleated RBC % Seg Neutrophils # Seg Neutrophils # Man Lymphocytes # (Manual) Monocytes # (Manual) Eosinophils # (Manual) Basophils # (Manual) PT INR Fibrinogen dRVVT Confirm Interp Factor V Activity POC ABG pH POC ABG pCO2 POC ABG pO2 ABG pO2 ABG HCO3 ABG Base Excess ABG Hemoglobin Oxyhemoglobin Sodium Potassium 3.1 L Chloride Carbon Dioxide BUN 73 H Creatinine 2.3 H Glucose 112 H POC Glucose 135 H 149 H Lactic Acid Calcium Phosphorus Magnesium Direct Bilirubin AST ALT Alkaline Phosphatase Lactate Dehydrogenase Troponin T C-Reactive Protein Total Protein Albumin Prealbumin Triglycerides Cholesterol LDL Cholesterol Direct HDL Cholesterol Urine pH Urine WBC (Auto) Urine Creatinine Urine Total Protein Fluid Total Protein Vancomycin Trough Rheumatoid Factor Complement C4 Miscellaneous Test Crossmatch 11/02/16 11/02/16 11/03/16 17:42 22:54 06:00 WBC RBC Hgb Hct MCV MCH MCHC RDW Plt Count Lymph % (Auto) [place] % (Auto) Lymph # [place] # Baso # Seg Neutrophils % Seg Neuts % (Manual) Lymphocytes % (Manual) Monocytes % (Manual) Eosinophils % (Manual) Basophils % (Manual) Nucleated RBC % Seg Neutrophils # Seg Neutrophils # Man Lymphocytes # (Manual) Monocytes # (Manual) Eosinophils # (Manual) Basophils # (Manual) PT INR Fibrinogen dRVVT Confirm Interp Factor V Activity POC ABG pH POC ABG pCO2 POC ABG pO2 ABG pO2 ABG HCO3 ABG Base Excess ABG Hemoglobin Oxyhemoglobin Sodium Potassium Chloride 96.7 L Carbon Dioxide BUN 41 H Creatinine 1.5 H Glucose 145 H POC Glucose 182 H 115 H Lactic Acid Calcium Phosphorus 1.60 L D Magnesium 1.50 L Direct Bilirubin AST ALT Alkaline Phosphatase Lactate Dehydrogenase Troponin T C-Reactive Protein Total Protein Albumin Prealbumin Triglycerides Cholesterol LDL Cholesterol Direct HDL Cholesterol Urine pH Urine WBC (Auto) Urine Creatinine Urine Total Protein Fluid Total Protein Vancomycin Trough Rheumatoid Factor Complement C4 Miscellaneous Test Crossmatch 11/03/16 11/03/16 11/03/16 11:53 17:45 23:37 WBC RBC Hgb Hct MCV MCH MCHC RDW Plt Count Lymph % (Auto) [place] % (Auto) Lymph # [place] # Baso # Seg Neutrophils % Seg Neuts % (Manual) Lymphocytes % (Manual) Monocytes % (Manual) Eosinophils % (Manual) Basophils % (Manual) Nucleated RBC % Seg Neutrophils # Seg Neutrophils # Man Lymphocytes # (Manual) Monocytes # (Manual) Eosinophils # (Manual) Basophils # (Manual) PT INR Fibrinogen dRVVT Confirm Interp Factor V Activity POC ABG pH POC ABG pCO2 POC ABG pO2 ABG pO2 ABG HCO3 ABG Base Excess ABG Hemoglobin Oxyhemoglobin Sodium Potassium Chloride Carbon Dioxide BUN Creatinine Glucose POC Glucose 131 H 134 H 113 H Lactic Acid Calcium Phosphorus Magnesium Direct Bilirubin AST ALT Alkaline Phosphatase Lactate Dehydrogenase Troponin T C-Reactive Protein Total Protein Albumin Prealbumin Triglycerides Cholesterol LDL Cholesterol Direct HDL Cholesterol Urine pH Urine WBC (Auto) Urine Creatinine Urine Total Protein Fluid Total Protein Vancomycin Trough Rheumatoid Factor Complement C4 Miscellaneous Test Crossmatch 11/04/16 11/04/16 11/04/16 05:41 06:00 12:10 WBC RBC Hgb Hct MCV MCH MCHC RDW Plt Count Lymph % (Auto) [place] % (Auto) Lymph # [place] # Baso # Seg Neutrophils % Seg Neuts % (Manual) Lymphocytes % (Manual) Monocytes % (Manual) Eosinophils % (Manual) Basophils % (Manual) Nucleated RBC % Seg Neutrophils # Seg Neutrophils # Man Lymphocytes # (Manual) Monocytes # (Manual) Eosinophils # (Manual) Basophils # (Manual) PT INR Fibrinogen dRVVT Confirm Interp Factor V Activity POC ABG pH POC ABG pCO2 POC ABG pO2 ABG pO2 ABG HCO3 ABG Base Excess ABG Hemoglobin Oxyhemoglobin Sodium Potassium Chloride 96.7 L Carbon Dioxide BUN 52 H Creatinine 1.9 H Glucose 126 H POC Glucose 137 H 191 H Lactic Acid Calcium Phosphorus Magnesium Direct Bilirubin AST ALT Alkaline Phosphatase Lactate Dehydrogenase Troponin T C-Reactive Protein Total Protein Albumin Prealbumin Triglycerides Cholesterol LDL Cholesterol Direct HDL Cholesterol Urine pH Urine WBC (Auto) Urine Creatinine Urine Total Protein Fluid Total Protein Vancomycin Trough Rheumatoid Factor Complement C4 Miscellaneous Test Crossmatch 11/04/16 11/05/16 11/05/16 22:57 03:10 05:10 WBC RBC Hgb Hct MCV MCH MCHC RDW Plt Count Lymph % (Auto) [place] % (Auto) Lymph # [place] # Baso # Seg Neutrophils % Seg Neuts % (Manual) Lymphocytes % (Manual) Monocytes % (Manual) Eosinophils % (Manual) Basophils % (Manual) Nucleated RBC % Seg Neutrophils # Seg Neutrophils # Man Lymphocytes # (Manual) Monocytes # (Manual) Eosinophils # (Manual) Basophils # (Manual) PT INR Fibrinogen dRVVT Confirm Interp Factor V Activity POC ABG pH POC ABG pCO2 POC ABG pO2 ABG pO2 ABG HCO3 ABG Base Excess ABG Hemoglobin Oxyhemoglobin Sodium 136 L Potassium Chloride 97.2 L Carbon Dioxide BUN 32 H Creatinine 1.3 H Glucose 123 H POC Glucose 125 H 108 H Lactic Acid Calcium 7.8 L Phosphorus Magnesium Direct Bilirubin AST ALT Alkaline Phosphatase Lactate Dehydrogenase Troponin T C-Reactive Protein Total Protein Albumin Prealbumin Triglycerides Cholesterol LDL Cholesterol Direct HDL Cholesterol Urine pH Urine WBC (Auto) Urine Creatinine Urine Total Protein Fluid Total Protein Vancomycin Trough Rheumatoid Factor Complement C4 Miscellaneous Test Crossmatch 11/05/16 11/05/16 11/05/16 12:23 13:09 13:25 WBC RBC Hgb Hct MCV MCH MCHC RDW Plt Count Lymph % (Auto) [place] % (Auto) Lymph # [place] # Baso # Seg Neutrophils % Seg Neuts % (Manual) Lymphocytes % (Manual) Monocytes % (Manual) Eosinophils % (Manual) Basophils % (Manual) Nucleated RBC % Seg Neutrophils # Seg Neutrophils # Man Lymphocytes # (Manual) Monocytes # (Manual) Eosinophils # (Manual) Basophils # (Manual) PT INR Fibrinogen dRVVT Confirm Interp Factor V Activity POC ABG pH POC ABG pCO2 POC ABG pO2 ABG pO2 ABG HCO3 ABG Base Excess ABG Hemoglobin Oxyhemoglobin Sodium Potassium Chloride Carbon Dioxide BUN Creatinine Glucose POC Glucose 124 H Lactic Acid Calcium Phosphorus Magnesium Direct Bilirubin AST ALT Alkaline Phosphatase Lactate Dehydrogenase Troponin T C-Reactive Protein 11.40 H Total Protein Albumin Prealbumin Triglycerides Cholesterol LDL Cholesterol Direct HDL Cholesterol Urine pH 9.0 H Urine WBC (Auto) Urine Creatinine Urine Total Protein Fluid Total Protein Vancomycin Trough Rheumatoid Factor Complement C4 Miscellaneous Test Crossmatch 11/05/16 11/05/16 11/05/16 13:25 17:54 23:42 WBC RBC Hgb Hct MCV MCH MCHC RDW Plt Count Lymph % (Auto) [place] % (Auto) Lymph # [place] # Baso # Seg Neutrophils % Seg Neuts % (Manual) Lymphocytes % (Manual) Monocytes % (Manual) Eosinophils % (Manual) Basophils % (Manual) Nucleated RBC % Seg Neutrophils # Seg Neutrophils # Man Lymphocytes # (Manual) Monocytes # (Manual) Eosinophils # (Manual) Basophils # (Manual) PT INR Fibrinogen dRVVT Confirm Interp Factor V Activity POC ABG pH POC ABG pCO2 POC ABG pO2 ABG pO2 ABG HCO3 ABG Base Excess ABG Hemoglobin Oxyhemoglobin Sodium Potassium Chloride Carbon Dioxide BUN Creatinine Glucose POC Glucose 114 H 134 H Lactic Acid Calcium Phosphorus Magnesium Direct Bilirubin AST ALT Alkaline Phosphatase Lactate Dehydrogenase Troponin T C-Reactive Protein Total Protein Albumin Prealbumin Triglycerides Cholesterol LDL Cholesterol Direct HDL Cholesterol Urine pH Urine WBC (Auto) Urine Creatinine Urine Total Protein Fluid Total Protein Vancomycin Trough Rheumatoid Factor Complement C4 Miscellaneous Test Flexitest 1 H Crossmatch 11/06/16 11/06/16 11/06/16 04:56 06:25 06:25 WBC RBC 2.50 L Hgb 7.3 L Hct 22.5 L MCV MCH MCHC RDW 16.9 H Plt Count Lymph % (Auto) [place] % (Auto) 10.5 H Lymph # [place] # 1.1 H Baso # Seg Neutrophils % Seg Neuts % (Manual) Lymphocytes % (Manual) Monocytes % (Manual) Eosinophils % (Manual) Basophils % (Manual) Nucleated RBC % Seg Neutrophils # Seg Neutrophils # Man Lymphocytes # (Manual) Monocytes # (Manual) Eosinophils # (Manual) Basophils # (Manual) PT INR Fibrinogen dRVVT Confirm Interp Factor V Activity POC ABG pH POC ABG pCO2 POC ABG pO2 ABG pO2 ABG HCO3 ABG Base Excess ABG Hemoglobin Oxyhemoglobin Sodium Potassium 5.1 H Chloride 95.9 L Carbon Dioxide BUN 52 H Creatinine 1.8 H Glucose 117 H POC Glucose 120 H Lactic Acid Calcium Phosphorus Magnesium Direct Bilirubin AST 103 H ALT 77 H Alkaline Phosphatase 285 H Lactate Dehydrogenase Troponin T C-Reactive Protein Total Protein 6.2 L Albumin 1.8 L Prealbumin 0.180 L Triglycerides Cholesterol LDL Cholesterol Direct HDL Cholesterol Urine pH Urine WBC (Auto) Urine Creatinine Urine Total Protein Fluid Total Protein Vancomycin Trough Rheumatoid Factor Complement C4 Miscellaneous Test Crossmatch 11/06/16 11/06/16 11/06/16 11:56 17:14 23:52 WBC RBC Hgb Hct MCV MCH MCHC RDW Plt Count Lymph % (Auto) [place] % (Auto) Lymph # [place] # Baso # Seg Neutrophils % Seg Neuts % (Manual) Lymphocytes % (Manual) Monocytes % (Manual) Eosinophils % (Manual) Basophils % (Manual) Nucleated RBC % Seg Neutrophils # Seg Neutrophils # Man Lymphocytes # (Manual) Monocytes # (Manual) Eosinophils # (Manual) Basophils # (Manual) PT INR Fibrinogen dRVVT Confirm Interp Factor V Activity POC ABG pH POC ABG pCO2 POC ABG pO2 ABG pO2 ABG HCO3 ABG Base Excess ABG Hemoglobin Oxyhemoglobin Sodium Potassium Chloride Carbon Dioxide BUN Creatinine Glucose POC Glucose 141 H 125 H 130 H Lactic Acid Calcium Phosphorus Magnesium Direct Bilirubin AST ALT Alkaline Phosphatase Lactate Dehydrogenase Troponin T C-Reactive Protein Total Protein Albumin Prealbumin Triglycerides Cholesterol LDL Cholesterol Direct HDL Cholesterol Urine pH Urine WBC (Auto) Urine Creatinine Urine Total Protein Fluid Total Protein Vancomycin Trough Rheumatoid Factor Complement C4 Miscellaneous Test Crossmatch 11/07/16 11/07/16 11/07/16 06:30 06:30 09:37 WBC RBC 2.18 L Hgb 6.3 L Hct 19.7 L* MCV MCH MCHC RDW 16.8 H Plt Count Lymph % (Auto) [place] % (Auto) 10.0 H Lymph # [place] # 1.0 H Baso # Seg Neutrophils % Seg Neuts % (Manual) Lymphocytes % (Manual) Monocytes % (Manual) Eosinophils % (Manual) Basophils % (Manual) Nucleated RBC % Seg Neutrophils # Seg Neutrophils # Man Lymphocytes # (Manual) Monocytes # (Manual) Eosinophils # (Manual) Basophils # (Manual) PT INR Fibrinogen dRVVT Confirm Interp Factor V Activity POC ABG pH POC ABG pCO2 POC ABG pO2 ABG pO2 ABG HCO3 ABG Base Excess ABG Hemoglobin Oxyhemoglobin Sodium 135 L Potassium Chloride 95.6 L Carbon Dioxide BUN 70 H Creatinine 2.0 H Glucose 126 H POC Glucose Lactic Acid Calcium Phosphorus Magnesium Direct Bilirubin AST ALT Alkaline Phosphatase Lactate Dehydrogenase Troponin T C-Reactive Protein Total Protein Albumin Prealbumin Triglycerides Cholesterol LDL Cholesterol Direct HDL Cholesterol Urine pH Urine WBC (Auto) Urine Creatinine Urine Total Protein Fluid Total Protein Vancomycin Trough Rheumatoid Factor Complement C4 Miscellaneous Test Crossmatch See Detail 11/07/16 11/07/16 11/07/16 12:52 18:51 21:26 WBC RBC Hgb Hct MCV MCH MCHC RDW Plt Count Lymph % (Auto) [place] % (Auto) Lymph # [place] # Baso # Seg Neutrophils % Seg Neuts % (Manual) Lymphocytes % (Manual) Monocytes % (Manual) Eosinophils % (Manual) Basophils % (Manual) Nucleated RBC % Seg Neutrophils # Seg Neutrophils # Man Lymphocytes # (Manual) Monocytes # (Manual) Eosinophils # (Manual) Basophils # (Manual) PT INR Fibrinogen dRVVT Confirm Interp Factor V Activity POC ABG pH 7.523 H POC ABG pCO2 34.6 L POC ABG pO2 53 L ABG pO2 ABG HCO3 ABG Base Excess ABG Hemoglobin Oxyhemoglobin Sodium Potassium Chloride Carbon Dioxide BUN Creatinine Glucose POC Glucose 142 H 155 H Lactic Acid Calcium Phosphorus Magnesium Direct Bilirubin AST ALT Alkaline Phosphatase Lactate Dehydrogenase Troponin T C-Reactive Protein Total Protein Albumin Prealbumin Triglycerides Cholesterol LDL Cholesterol Direct HDL Cholesterol Urine pH Urine WBC (Auto) Urine Creatinine Urine Total Protein Fluid Total Protein Vancomycin Trough Rheumatoid Factor Complement C4 Miscellaneous Test Crossmatch 11/07/16 11/08/16 11/08/16 21:34 13:03 23:37 WBC RBC 2.63 L Hgb 7.7 L Hct 22.7 L MCV MCH MCHC RDW 17.0 H Plt Count Lymph % (Auto) [place] % (Auto) Lymph # [place] # Baso # Seg Neutrophils % Seg Neuts % (Manual) Lymphocytes % (Manual) Monocytes % (Manual) Eosinophils % (Manual) Basophils % (Manual) Nucleated RBC % Seg Neutrophils # Seg Neutrophils # Man Lymphocytes # (Manual) Monocytes # (Manual) Eosinophils # (Manual) Basophils # (Manual) PT INR Fibrinogen dRVVT Confirm Interp Factor V Activity POC ABG pH 7.478 H POC ABG pCO2 34.0 L POC ABG pO2 50 L ABG pO2 ABG HCO3 ABG Base Excess ABG Hemoglobin Oxyhemoglobin Sodium Potassium Chloride Carbon Dioxide BUN Creatinine Glucose POC Glucose 113 H Lactic Acid Calcium Phosphorus Magnesium Direct Bilirubin AST ALT Alkaline Phosphatase Lactate Dehydrogenase Troponin T C-Reactive Protein Total Protein Albumin Prealbumin Triglycerides Cholesterol LDL Cholesterol Direct HDL Cholesterol Urine pH Urine WBC (Auto) Urine Creatinine Urine Total Protein Fluid Total Protein Vancomycin Trough Rheumatoid Factor Complement C4 Miscellaneous Test Crossmatch 11/09/16 11/09/16 11/09/16 04:35 10:15 18:21 WBC RBC 2.68 L Hgb 7.8 L Hct 23.3 L MCV MCH MCHC RDW 17.0 H Plt Count Lymph % (Auto) [place] % (Auto) 12.1 H Lymph # [place] # 1.1 H Baso # Seg Neutrophils % Seg Neuts % (Manual) Lymphocytes % (Manual) Monocytes % (Manual) Eosinophils % (Manual) Basophils % (Manual) Nucleated RBC % Seg Neutrophils # Seg Neutrophils # Man Lymphocytes # (Manual) Monocytes # (Manual) Eosinophils # (Manual) Basophils # (Manual) PT INR Fibrinogen dRVVT Confirm Interp Factor V Activity POC ABG pH POC ABG pCO2 POC ABG pO2 ABG pO2 ABG HCO3 ABG Base Excess ABG Hemoglobin Oxyhemoglobin Sodium Potassium Chloride Carbon Dioxide BUN 51 H Creatinine 1.8 H Glucose POC Glucose 60 L Lactic Acid Calcium 8.3 L Phosphorus Magnesium Direct Bilirubin AST ALT Alkaline Phosphatase Lactate Dehydrogenase Troponin T C-Reactive Protein Total Protein Albumin Prealbumin Triglycerides Cholesterol LDL Cholesterol Direct HDL Cholesterol Urine pH Urine WBC (Auto) Urine Creatinine Urine Total Protein Fluid Total Protein Vancomycin Trough Rheumatoid Factor Complement C4 Miscellaneous Test Crossmatch 11/09/16 11/10/16 11/10/16 18:55 07:00 11:51 WBC RBC Hgb Hct MCV MCH MCHC RDW Plt Count Lymph % (Auto) [place] % (Auto) Lymph # [place] # Baso # Seg Neutrophils % Seg Neuts % (Manual) Lymphocytes % (Manual) Monocytes % (Manual) Eosinophils % (Manual) Basophils % (Manual) Nucleated RBC % Seg Neutrophils # Seg Neutrophils # Man Lymphocytes # (Manual) Monocytes # (Manual) Eosinophils # (Manual) Basophils # (Manual) PT INR Fibrinogen dRVVT Confirm Interp Factor V Activity POC ABG pH POC ABG pCO2 POC ABG pO2 ABG pO2 ABG HCO3 ABG Base Excess ABG Hemoglobin Oxyhemoglobin Sodium Potassium 3.0 L D Chloride 97.4 L Carbon Dioxide BUN 28 H Creatinine 1.3 H Glucose POC Glucose 68 L 120 H Lactic Acid Calcium 7.8 L Phosphorus Magnesium Direct Bilirubin AST ALT Alkaline Phosphatase Lactate Dehydrogenase Troponin T C-Reactive Protein Total Protein Albumin Prealbumin Triglycerides Cholesterol LDL Cholesterol Direct HDL Cholesterol Urine pH Urine WBC (Auto) Urine Creatinine Urine Total Protein Fluid Total Protein Vancomycin Trough Rheumatoid Factor Complement C4 Miscellaneous Test Crossmatch 11/10/16 11/11/16 11/11/16 14:20 06:59 06:59 WBC RBC 2.81 L Hgb 8.1 L Hct 24.4 L MCV MCH MCHC RDW 16.4 H Plt Count Lymph % (Auto) [place] % (Auto) 10.8 H Lymph # [place] # 1.0 H Baso # Seg Neutrophils % Seg Neuts % (Manual) Lymphocytes % (Manual) Monocytes % (Manual) Eosinophils % (Manual) Basophils % (Manual) Nucleated RBC % Seg Neutrophils # Seg Neutrophils # Man Lymphocytes # (Manual) Monocytes # (Manual) Eosinophils # (Manual) Basophils # (Manual) PT INR Fibrinogen dRVVT Confirm Interp Factor V Activity POC ABG pH POC ABG pCO2 POC ABG pO2 ABG pO2 ABG HCO3 ABG Base Excess ABG Hemoglobin Oxyhemoglobin Sodium Potassium Chloride Carbon Dioxide BUN Creatinine Glucose POC Glucose Lactic Acid Calcium Phosphorus Magnesium Direct Bilirubin AST ALT Alkaline Phosphatase Lactate Dehydrogenase 196 H Troponin T C-Reactive Protein Total Protein 6.1 L Albumin Prealbumin Triglycerides Cholesterol LDL Cholesterol Direct HDL Cholesterol Urine pH Urine WBC (Auto) Urine Creatinine Urine Total Protein Fluid Total Protein < 3.0 L Vancomycin Trough Rheumatoid Factor Complement C4 Miscellaneous Test Crossmatch 11/11/16 11/11/16 11/12/16 06:59 09:50 04:00 WBC RBC Hgb Hct MCV MCH MCHC RDW Plt Count Lymph % (Auto) [place] % (Auto) Lymph # [place] # Baso # Seg Neutrophils % Seg Neuts % (Manual) Lymphocytes % (Manual) Monocytes % (Manual) Eosinophils % (Manual) Basophils % (Manual) Nucleated RBC % Seg Neutrophils # Seg Neutrophils # Man Lymphocytes # (Manual) Monocytes # (Manual) Eosinophils # (Manual) Basophils # (Manual) PT INR 1.18 H Fibrinogen dRVVT Confirm Interp Factor V Activity POC ABG pH POC ABG pCO2 POC ABG pO2 ABG pO2 ABG HCO3 ABG Base Excess ABG Hemoglobin Oxyhemoglobin Sodium 136 L 133 L Potassium Chloride 96.1 L 94.8 L Carbon Dioxide 21 L BUN 37 H 42 H Creatinine 1.8 H 2.0 H Glucose POC Glucose Lactic Acid Calcium Phosphorus Magnesium Direct Bilirubin AST ALT Alkaline Phosphatase Lactate Dehydrogenase Troponin T C-Reactive Protein Total Protein Albumin Prealbumin Triglycerides Cholesterol LDL Cholesterol Direct HDL Cholesterol Urine pH Urine WBC (Auto) Urine Creatinine Urine Total Protein Fluid Total Protein Vancomycin Trough Rheumatoid Factor Complement C4 Miscellaneous Test Crossmatch 11/12/16 11/12/16 11/13/16 04:00 23:55 05:53 WBC RBC Hgb 8.9 L Hct 27.2 L MCV MCH MCHC RDW Plt Count Lymph % (Auto) [place] % (Auto) Lymph # [place] # Baso # Seg Neutrophils % Seg Neuts % (Manual) Lymphocytes % (Manual) Monocytes % (Manual) Eosinophils % (Manual) Basophils % (Manual) Nucleated RBC % Seg Neutrophils # Seg Neutrophils # Man Lymphocytes # (Manual) Monocytes # (Manual) Eosinophils # (Manual) Basophils # (Manual) PT INR Fibrinogen dRVVT Confirm Interp Factor V Activity POC ABG pH POC ABG pCO2 POC ABG pO2 ABG pO2 ABG HCO3 ABG Base Excess ABG Hemoglobin Oxyhemoglobin Sodium Potassium Chloride Carbon Dioxide BUN Creatinine Glucose POC Glucose 132 H 120 H Lactic Acid Calcium Phosphorus Magnesium Direct Bilirubin AST ALT Alkaline Phosphatase Lactate Dehydrogenase Troponin T C-Reactive Protein Total Protein Albumin Prealbumin Triglycerides Cholesterol LDL Cholesterol Direct HDL Cholesterol Urine pH Urine WBC (Auto) Urine Creatinine Urine Total Protein Fluid Total Protein Vancomycin Trough Rheumatoid Factor Complement C4 Miscellaneous Test Crossmatch 11/13/16 11/13/16 11/13/16 11:43 17:09 23:41 WBC RBC Hgb Hct MCV MCH MCHC RDW Plt Count Lymph % (Auto) [place] % (Auto) Lymph # [place] # Baso # Seg Neutrophils % Seg Neuts % (Manual) Lymphocytes % (Manual) Monocytes % (Manual) Eosinophils % (Manual) Basophils % (Manual) Nucleated RBC % Seg Neutrophils # Seg Neutrophils # Man Lymphocytes # (Manual) Monocytes # (Manual) Eosinophils # (Manual) Basophils # (Manual) PT INR Fibrinogen dRVVT Confirm Interp Factor V Activity POC ABG pH POC ABG pCO2 POC ABG pO2 ABG pO2 ABG HCO3 ABG Base Excess ABG Hemoglobin Oxyhemoglobin Sodium Potassium Chloride Carbon Dioxide BUN Creatinine Glucose POC Glucose 114 H 113 H 108 H Lactic Acid Calcium Phosphorus Magnesium Direct Bilirubin AST ALT Alkaline Phosphatase Lactate Dehydrogenase Troponin T C-Reactive Protein Total Protein Albumin Prealbumin Triglycerides Cholesterol LDL Cholesterol Direct HDL Cholesterol Urine pH Urine WBC (Auto) Urine Creatinine Urine Total Protein Fluid Total Protein Vancomycin Trough Rheumatoid Factor Complement C4 Miscellaneous Test Crossmatch 11/13/16 11/15/16 11/15/16 Unknown 00:37 03:30 WBC 11.2 H RBC 2.72 L Hgb 7.6 L Hct 23.4 L MCV MCH MCHC RDW 16.5 H Plt Count Lymph % (Auto) [place] % (Auto) Lymph # [place] # Baso # Seg Neutrophils % Seg Neuts % (Manual) Lymphocytes % (Manual) Monocytes % (Manual) Eosinophils % (Manual) Basophils % (Manual) Nucleated RBC % Seg Neutrophils # Seg Neutrophils # Man Lymphocytes # (Manual) Monocytes # (Manual) Eosinophils # (Manual) Basophils # (Manual) PT INR Fibrinogen dRVVT Confirm Interp Factor V Activity POC ABG pH POC ABG pCO2 POC ABG pO2 ABG pO2 ABG HCO3 ABG Base Excess ABG Hemoglobin Oxyhemoglobin Sodium 135 L Potassium Chloride 95.2 L Carbon Dioxide BUN 52 H Creatinine 2.2 H Glucose POC Glucose 108 H Lactic Acid Calcium Phosphorus Magnesium Direct Bilirubin AST ALT Alkaline Phosphatase Lactate Dehydrogenase Troponin T C-Reactive Protein Total Protein Albumin Prealbumin Triglycerides Cholesterol LDL Cholesterol Direct HDL Cholesterol Urine pH Urine WBC (Auto) Urine Creatinine Urine Total Protein Fluid Total Protein Vancomycin Trough Rheumatoid Factor Complement C4 Miscellaneous Test Crossmatch 11/15/16 11/15/16 11/15/16 03:30 05:04 11:50 WBC RBC Hgb Hct MCV MCH MCHC RDW Plt Count Lymph % (Auto) [place] % (Auto) Lymph # [place] # Baso # Seg Neutrophils % Seg Neuts % (Manual) Lymphocytes % (Manual) Monocytes % (Manual) Eosinophils % (Manual) Basophils % (Manual) Nucleated RBC % Seg Neutrophils # Seg Neutrophils # Man Lymphocytes # (Manual) Monocytes # (Manual) Eosinophils # (Manual) Basophils # (Manual) PT INR Fibrinogen dRVVT Confirm Interp Factor V Activity POC ABG pH POC ABG pCO2 POC ABG pO2 ABG pO2 ABG HCO3 ABG Base Excess ABG Hemoglobin Oxyhemoglobin Sodium Potassium 3.4 L Chloride Carbon Dioxide BUN 25 H Creatinine 1.5 H Glucose 103 H POC Glucose 121 H 144 H Lactic Acid Calcium Phosphorus Magnesium Direct Bilirubin AST ALT Alkaline Phosphatase Lactate Dehydrogenase Troponin T C-Reactive Protein Total Protein Albumin Prealbumin Triglycerides Cholesterol LDL Cholesterol Direct HDL Cholesterol Urine pH Urine WBC (Auto) Urine Creatinine Urine Total Protein Fluid Total Protein Vancomycin Trough Rheumatoid Factor Complement C4 Miscellaneous Test Crossmatch 11/15/16 11/15/16 11/16/16 21:28 23:20 11:44 WBC RBC Hgb Hct MCV MCH MCHC RDW Plt Count Lymph % (Auto) [place] % (Auto) Lymph # [place] # Baso # Seg Neutrophils % Seg Neuts % (Manual) Lymphocytes % (Manual) Monocytes % (Manual) Eosinophils % (Manual) Basophils % (Manual) Nucleated RBC % Seg Neutrophils # Seg Neutrophils # Man Lymphocytes # (Manual) Monocytes # (Manual) Eosinophils # (Manual) Basophils # (Manual) PT INR Fibrinogen dRVVT Confirm Interp Factor V Activity POC ABG pH 7.462 H POC ABG pCO2 POC ABG pO2 71 L ABG pO2 ABG HCO3 ABG Base Excess ABG Hemoglobin Oxyhemoglobin Sodium Potassium Chloride Carbon Dioxide BUN Creatinine Glucose POC Glucose 116 H 133 H Lactic Acid Calcium Phosphorus Magnesium Direct Bilirubin AST ALT Alkaline Phosphatase Lactate Dehydrogenase Troponin T C-Reactive Protein Total Protein Albumin Prealbumin Triglycerides Cholesterol LDL Cholesterol Direct HDL Cholesterol Urine pH Urine WBC (Auto) Urine Creatinine Urine Total Protein Fluid Total Protein Vancomycin Trough Rheumatoid Factor Complement C4 Miscellaneous Test Crossmatch 11/16/16 11/16/16 11/16/16 12:20 17:05 23:35 WBC 11.7 H RBC 2.73 L Hgb 7.6 L Hct 23.7 L MCV MCH MCHC RDW 16.6 H Plt Count Lymph % (Auto) [place] % (Auto) Lymph # [place] # Baso # Seg Neutrophils % Seg Neuts % (Manual) Lymphocytes % (Manual) Monocytes % (Manual) Eosinophils % (Manual) Basophils % (Manual) Nucleated RBC % Seg Neutrophils # Seg Neutrophils # Man Lymphocytes # (Manual) Monocytes # (Manual) Eosinophils # (Manual) Basophils # (Manual) PT INR Fibrinogen dRVVT Confirm Interp Factor V Activity POC ABG pH POC ABG pCO2 POC ABG pO2 ABG pO2 ABG HCO3 ABG Base Excess ABG Hemoglobin Oxyhemoglobin Sodium Potassium Chloride Carbon Dioxide BUN Creatinine Glucose POC Glucose 154 H 125 H Lactic Acid Calcium Phosphorus Magnesium Direct Bilirubin AST ALT Alkaline Phosphatase Lactate Dehydrogenase Troponin T C-Reactive Protein Total Protein Albumin Prealbumin Triglycerides Cholesterol LDL Cholesterol Direct HDL Cholesterol Urine pH Urine WBC (Auto) Urine Creatinine Urine Total Protein Fluid Total Protein Vancomycin Trough Rheumatoid Factor Complement C4 Miscellaneous Test Crossmatch 11/17/16 11/17/16 11/17/16 03:20 03:20 03:20 WBC RBC 2.55 L Hgb 7.3 L Hct 21.9 L MCV MCH MCHC RDW 16.6 H Plt Count Lymph % (Auto) [place] % (Auto) 11.5 H Lymph # [place] # 1.1 H Baso # Seg Neutrophils % Seg Neuts % (Manual) Lymphocytes % (Manual) Monocytes % (Manual) Eosinophils % (Manual) Basophils % (Manual) Nucleated RBC % Seg Neutrophils # Seg Neutrophils # Man Lymphocytes # (Manual) Monocytes # (Manual) Eosinophils # (Manual) Basophils # (Manual) PT 16.8 H INR 1.37 H Fibrinogen dRVVT Confirm Interp Factor V Activity POC ABG pH POC ABG pCO2 POC ABG pO2 ABG pO2 ABG HCO3 ABG Base Excess ABG Hemoglobin Oxyhemoglobin Sodium Potassium 3.5 L Chloride Carbon Dioxide BUN 21 H Creatinine Glucose POC Glucose Lactic Acid Calcium 7.9 L Phosphorus Magnesium Direct Bilirubin AST ALT Alkaline Phosphatase Lactate Dehydrogenase Troponin T C-Reactive Protein Total Protein Albumin Prealbumin Triglycerides Cholesterol LDL Cholesterol Direct HDL Cholesterol Urine pH Urine WBC (Auto) Urine Creatinine Urine Total Protein Fluid Total Protein Vancomycin Trough Rheumatoid Factor Complement C4 Miscellaneous Test Crossmatch 11/17/16 11/17/16 11/17/16 06:34 11:21 21:22 WBC RBC Hgb Hct MCV MCH MCHC RDW Plt Count Lymph % (Auto) [place] % (Auto) Lymph # [place] # Baso # Seg Neutrophils % Seg Neuts % (Manual) Lymphocytes % (Manual) Monocytes % (Manual) Eosinophils % (Manual) Basophils % (Manual) Nucleated RBC % Seg Neutrophils # Seg Neutrophils # Man Lymphocytes # (Manual) Monocytes # (Manual) Eosinophils # (Manual) Basophils # (Manual) PT INR Fibrinogen dRVVT Confirm Interp Factor V Activity POC ABG pH 7.467 H POC ABG pCO2 POC ABG pO2 73 L ABG pO2 ABG HCO3 ABG Base Excess ABG Hemoglobin Oxyhemoglobin Sodium Potassium Chloride Carbon Dioxide BUN Creatinine Glucose POC Glucose 121 H 119 H Lactic Acid Calcium Phosphorus Magnesium Direct Bilirubin AST ALT Alkaline Phosphatase Lactate Dehydrogenase Troponin T C-Reactive Protein Total Protein Albumin Prealbumin Triglycerides Cholesterol LDL Cholesterol Direct HDL Cholesterol Urine pH Urine WBC (Auto) Urine Creatinine Urine Total Protein Fluid Total Protein Vancomycin Trough Rheumatoid Factor Complement C4 Miscellaneous Test Crossmatch 11/18/16 11/18/16 11/19/16 12:16 17:19 00:00 WBC RBC Hgb Hct MCV MCH MCHC RDW Plt Count Lymph % (Auto) [place] % (Auto) Lymph # [place] # Baso # Seg Neutrophils % Seg Neuts % (Manual) Lymphocytes % (Manual) Monocytes % (Manual) Eosinophils % (Manual) Basophils % (Manual) Nucleated RBC % Seg Neutrophils # Seg Neutrophils # Man Lymphocytes # (Manual) Monocytes # (Manual) Eosinophils # (Manual) Basophils # (Manual) PT INR Fibrinogen dRVVT Confirm Interp Factor V Activity POC ABG pH POC ABG pCO2 POC ABG pO2 ABG pO2 ABG HCO3 ABG Base Excess ABG Hemoglobin Oxyhemoglobin Sodium Potassium Chloride Carbon Dioxide BUN Creatinine Glucose POC Glucose 124 H 162 H 139 H Lactic Acid Calcium Phosphorus Magnesium Direct Bilirubin AST ALT Alkaline Phosphatase Lactate Dehydrogenase Troponin T C-Reactive Protein Total Protein Albumin Prealbumin Triglycerides Cholesterol LDL Cholesterol Direct HDL Cholesterol Urine pH Urine WBC (Auto) Urine Creatinine Urine Total Protein Fluid Total Protein Vancomycin Trough Rheumatoid Factor Complement C4 Miscellaneous Test Crossmatch 11/19/16 11/19/16 11/20/16 05:00 12:43 00:40 WBC RBC Hgb Hct MCV MCH MCHC RDW Plt Count Lymph % (Auto) [place] % (Auto) Lymph # [place] # Baso # Seg Neutrophils % Seg Neuts % (Manual) Lymphocytes % (Manual) Monocytes % (Manual) Eosinophils % (Manual) Basophils % (Manual) Nucleated RBC % Seg Neutrophils # Seg Neutrophils # Man Lymphocytes # (Manual) Monocytes # (Manual) Eosinophils # (Manual) Basophils # (Manual) PT INR Fibrinogen dRVVT Confirm Interp Factor V Activity POC ABG pH POC ABG pCO2 POC ABG pO2 ABG pO2 ABG HCO3 ABG Base Excess ABG Hemoglobin Oxyhemoglobin Sodium Potassium Chloride Carbon Dioxide BUN Creatinine Glucose POC Glucose 110 H 125 H 136 H Lactic Acid Calcium Phosphorus Magnesium Direct Bilirubin AST ALT Alkaline Phosphatase Lactate Dehydrogenase Troponin T C-Reactive Protein Total Protein Albumin Prealbumin Triglycerides Cholesterol LDL Cholesterol Direct HDL Cholesterol Urine pH Urine WBC (Auto) Urine Creatinine Urine Total Protein Fluid Total Protein Vancomycin Trough Rheumatoid Factor Complement C4 Miscellaneous Test Crossmatch 11/20/16 11/20/16 11/20/16 05:00 05:00 05:51 WBC 13.1 H RBC 2.74 L Hgb 7.7 L Hct 23.6 L MCV MCH MCHC RDW 16.9 H Plt Count Lymph % (Auto) [place] % (Auto) 10.8 H Lymph # [place] # 1.4 H Baso # Seg Neutrophils % Seg Neuts % (Manual) Lymphocytes % (Manual) Monocytes % (Manual) Eosinophils % (Manual) Basophils % (Manual) Nucleated RBC % Seg Neutrophils # 7.9 H Seg Neutrophils # Man Lymphocytes # (Manual) Monocytes # (Manual) Eosinophils # (Manual) Basophils # (Manual) PT INR Fibrinogen dRVVT Confirm Interp Factor V Activity POC ABG pH POC ABG pCO2 POC ABG pO2 ABG pO2 ABG HCO3 ABG Base Excess ABG Hemoglobin Oxyhemoglobin Sodium Potassium Chloride Carbon Dioxide BUN 31 H Creatinine 1.8 H Glucose 129 H POC Glucose 133 H Lactic Acid Calcium Phosphorus Magnesium Direct Bilirubin AST ALT Alkaline Phosphatase Lactate Dehydrogenase Troponin T C-Reactive Protein Total Protein Albumin Prealbumin Triglycerides Cholesterol LDL Cholesterol Direct HDL Cholesterol Urine pH Urine WBC (Auto) Urine Creatinine Urine Total Protein Fluid Total Protein Vancomycin Trough Rheumatoid Factor Complement C4 Miscellaneous Test Crossmatch 11/20/16 11/20/16 11/21/16 12:40 18:10 01:20 WBC RBC Hgb Hct MCV MCH MCHC RDW Plt Count Lymph % (Auto) [place] % (Auto) Lymph # [place] # Baso # Seg Neutrophils % Seg Neuts % (Manual) Lymphocytes % (Manual) Monocytes % (Manual) Eosinophils % (Manual) Basophils % (Manual) Nucleated RBC % Seg Neutrophils # Seg Neutrophils # Man Lymphocytes # (Manual) Monocytes # (Manual) Eosinophils # (Manual) Basophils # (Manual) PT INR Fibrinogen dRVVT Confirm Interp Factor V Activity POC ABG pH POC ABG pCO2 POC ABG pO2 ABG pO2 ABG HCO3 ABG Base Excess ABG Hemoglobin Oxyhemoglobin Sodium Potassium Chloride Carbon Dioxide BUN Creatinine Glucose POC Glucose 134 H 138 H 136 H Lactic Acid Calcium Phosphorus Magnesium Direct Bilirubin AST ALT Alkaline Phosphatase Lactate Dehydrogenase Troponin T C-Reactive Protein Total Protein Albumin Prealbumin Triglycerides Cholesterol LDL Cholesterol Direct HDL Cholesterol Urine pH Urine WBC (Auto) Urine Creatinine Urine Total Protein Fluid Total Protein Vancomycin Trough Rheumatoid Factor Complement C4 Miscellaneous Test Crossmatch 11/21/16 11/21/16 11/21/16 07:04 07:45 07:45 WBC 22.0 H RBC 2.91 L Hgb 8.2 L Hct 25.4 L MCV MCH MCHC RDW 17.1 H Plt Count Lymph % (Auto) [place] % (Auto) Lymph # [place] # Baso # Seg Neutrophils % Seg Neuts % (Manual) Lymphocytes % (Manual) 8.0 L Monocytes % (Manual) Eosinophils % (Manual) Basophils % (Manual) Nucleated RBC % Seg Neutrophils # Seg Neutrophils # Man 14.7 H Lymphocytes # (Manual) Monocytes # (Manual) 1.1 H Eosinophils # (Manual) Basophils # (Manual) PT INR Fibrinogen dRVVT Confirm Interp Factor V Activity POC ABG pH POC ABG pCO2 POC ABG pO2 ABG pO2 ABG HCO3 ABG Base Excess ABG Hemoglobin Oxyhemoglobin Sodium Potassium Chloride Carbon Dioxide BUN 42 H Creatinine 2.0 H Glucose POC Glucose 108 H Lactic Acid Calcium Phosphorus Magnesium Direct Bilirubin AST ALT Alkaline Phosphatase Lactate Dehydrogenase Troponin T C-Reactive Protein Total Protein Albumin Prealbumin Triglycerides Cholesterol LDL Cholesterol Direct HDL Cholesterol Urine pH Urine WBC (Auto) Urine Creatinine Urine Total Protein Fluid Total Protein Vancomycin Trough Rheumatoid Factor Complement C4 Miscellaneous Test Crossmatch 11/21/16 11/21/16 11/21/16 08:38 10:09 11:20 WBC RBC Hgb Hct MCV MCH MCHC RDW Plt Count Lymph % (Auto) [place] % (Auto) Lymph # [place] # Baso # Seg Neutrophils % Seg Neuts % (Manual) Lymphocytes % (Manual) Monocytes % (Manual) Eosinophils % (Manual) Basophils % (Manual) Nucleated RBC % Seg Neutrophils # Seg Neutrophils # Man Lymphocytes # (Manual) Monocytes # (Manual) Eosinophils # (Manual) Basophils # (Manual) PT INR Fibrinogen dRVVT Confirm Interp Factor V Activity POC ABG pH 7.346 L POC ABG pCO2 34.4 L POC ABG pO2 314 H ABG pO2 ABG HCO3 ABG Base Excess ABG Hemoglobin Oxyhemoglobin Sodium Potassium Chloride Carbon Dioxide BUN Creatinine Glucose POC Glucose 195 H 153 H Lactic Acid Calcium Phosphorus Magnesium Direct Bilirubin AST ALT Alkaline Phosphatase Lactate Dehydrogenase Troponin T C-Reactive Protein Total Protein Albumin Prealbumin Triglycerides Cholesterol LDL Cholesterol Direct HDL Cholesterol Urine pH Urine WBC (Auto) Urine Creatinine Urine Total Protein Fluid Total Protein Vancomycin Trough Rheumatoid Factor Complement C4 Miscellaneous Test Crossmatch 11/21/16 11/22/16 11/22/16 23:37 04:48 05:00 WBC 29.7 H RBC 2.73 L Hgb 7.5 L Hct 24.2 L MCV MCH 27 L MCHC RDW 17.4 H Plt Count Lymph % (Auto) [place] % (Auto) Lymph # [place] # Baso # Seg Neutrophils % Seg Neuts % (Manual) Lymphocytes % (Manual) 7.0 L Monocytes % (Manual) Eosinophils % (Manual) Basophils % (Manual) Nucleated RBC % Seg Neutrophils # Seg Neutrophils # Man 15.4 H Lymphocytes # (Manual) Monocytes # (Manual) Eosinophils # (Manual) Basophils # (Manual) PT INR Fibrinogen dRVVT Confirm Interp Factor V Activity POC ABG pH POC ABG pCO2 24.6 L POC ABG pO2 189 H ABG pO2 ABG HCO3 ABG Base Excess ABG Hemoglobin Oxyhemoglobin Sodium Potassium Chloride Carbon Dioxide BUN Creatinine Glucose POC Glucose 65 L Lactic Acid Calcium Phosphorus Magnesium Direct Bilirubin AST ALT Alkaline Phosphatase Lactate Dehydrogenase Troponin T C-Reactive Protein Total Protein Albumin Prealbumin Triglycerides Cholesterol LDL Cholesterol Direct HDL Cholesterol Urine pH Urine WBC (Auto) Urine Creatinine Urine Total Protein Fluid Total Protein Vancomycin Trough Rheumatoid Factor Complement C4 Miscellaneous Test Crossmatch 11/22/16 11/23/16 11/23/16 05:00 03:44 04:06 WBC RBC 2.52 L Hgb 7.2 L Hct 21.5 L MCV MCH MCHC RDW 17.1 H Plt Count Lymph % (Auto) [place] % (Auto) 12.4 H Lymph # [place] # 1.4 H Baso # Seg Neutrophils % Seg Neuts % (Manual) Lymphocytes % (Manual) Monocytes % (Manual) Eosinophils % (Manual) Basophils % (Manual) Nucleated RBC % Seg Neutrophils # Seg Neutrophils # Man Lymphocytes # (Manual) Monocytes # (Manual) Eosinophils # (Manual) Basophils # (Manual) PT INR Fibrinogen dRVVT Confirm Interp Factor V Activity POC ABG pH 7.493 H POC ABG pCO2 29.5 L POC ABG pO2 49 L ABG pO2 ABG HCO3 ABG Base Excess ABG Hemoglobin Oxyhemoglobin Sodium 134 L Potassium Chloride 95.9 L Carbon Dioxide 14 L D BUN 51 H Creatinine 2.6 H Glucose POC Glucose Lactic Acid Calcium Phosphorus Magnesium Direct Bilirubin AST ALT Alkaline Phosphatase Lactate Dehydrogenase Troponin T C-Reactive Protein Total Protein Albumin Prealbumin Triglycerides Cholesterol LDL Cholesterol Direct HDL Cholesterol Urine pH Urine WBC (Auto) Urine Creatinine Urine Total Protein Fluid Total Protein Vancomycin Trough Rheumatoid Factor Complement C4 Miscellaneous Test Crossmatch 11/23/16 11/23/16 11/24/16 04:06 11:29 06:39 WBC RBC Hgb Hct MCV MCH MCHC RDW Plt Count Lymph % (Auto) [place] % (Auto) Lymph # [place] # Baso # Seg Neutrophils % Seg Neuts % (Manual) Lymphocytes % (Manual) Monocytes % (Manual) Eosinophils % (Manual) Basophils % (Manual) Nucleated RBC % Seg Neutrophils # Seg Neutrophils # Man Lymphocytes # (Manual) Monocytes # (Manual) Eosinophils # (Manual) Basophils # (Manual) PT INR Fibrinogen dRVVT Confirm Interp Factor V Activity POC ABG pH POC ABG pCO2 POC ABG pO2 ABG pO2 ABG HCO3 ABG Base Excess ABG Hemoglobin Oxyhemoglobin Sodium 136 L Potassium Chloride 95.2 L Carbon Dioxide BUN 60 H Creatinine 2.9 H Glucose POC Glucose 69 L 305 H Lactic Acid Calcium Phosphorus Magnesium 1.60 L Direct Bilirubin AST ALT Alkaline Phosphatase Lactate Dehydrogenase Troponin T C-Reactive Protein Total Protein Albumin Prealbumin Triglycerides Cholesterol LDL Cholesterol Direct HDL Cholesterol Urine pH Urine WBC (Auto) Urine Creatinine Urine Total Protein Fluid Total Protein Vancomycin Trough Rheumatoid Factor Complement C4 Miscellaneous Test Crossmatch 11/24/16 11/24/16 11/24/16 06:43 08:08 08:08 WBC 11.2 H RBC 2.47 L Hgb 6.8 L Hct 20.6 L MCV MCH MCHC RDW 17.0 H Plt Count Lymph % (Auto) [place] % (Auto) 10.3 H Lymph # [place] # 1.2 H Baso # Seg Neutrophils % Seg Neuts % (Manual) Lymphocytes % (Manual) Monocytes % (Manual) Eosinophils % (Manual) Basophils % (Manual) Nucleated RBC % Seg Neutrophils # Seg Neutrophils # Man Lymphocytes # (Manual) Monocytes # (Manual) Eosinophils # (Manual) Basophils # (Manual) PT INR Fibrinogen dRVVT Confirm Interp Factor V Activity POC ABG pH POC ABG pCO2 POC ABG pO2 ABG pO2 ABG HCO3 ABG Base Excess ABG Hemoglobin Oxyhemoglobin Sodium 135 L Potassium Chloride 96.3 L Carbon Dioxide BUN 61 H Creatinine 3.1 H Glucose POC Glucose 62 L Lactic Acid Calcium 8.2 L Phosphorus Magnesium Direct Bilirubin AST ALT Alkaline Phosphatase Lactate Dehydrogenase Troponin T C-Reactive Protein Total Protein Albumin Prealbumin Triglycerides Cholesterol LDL Cholesterol Direct HDL Cholesterol Urine pH Urine WBC (Auto) Urine Creatinine Urine Total Protein Fluid Total Protein Vancomycin Trough Rheumatoid Factor Complement C4 Miscellaneous Test Crossmatch 11/24/16 11/24/16 11/24/16 08:34 11:20 12:41 WBC RBC Hgb Hct MCV MCH MCHC RDW Plt Count Lymph % (Auto) [place] % (Auto) Lymph # [place] # Baso # Seg Neutrophils % Seg Neuts % (Manual) Lymphocytes % (Manual) Monocytes % (Manual) Eosinophils % (Manual) Basophils % (Manual) Nucleated RBC % Seg Neutrophils # Seg Neutrophils # Man Lymphocytes # (Manual) Monocytes # (Manual) Eosinophils # (Manual) Basophils # (Manual) PT INR Fibrinogen dRVVT Confirm Interp Factor V Activity POC ABG pH POC ABG pCO2 POC ABG pO2 ABG pO2 ABG HCO3 ABG Base Excess ABG Hemoglobin Oxyhemoglobin Sodium Potassium Chloride Carbon Dioxide BUN Creatinine Glucose POC Glucose 108 H Lactic Acid Calcium Phosphorus Magnesium 1.60 L Direct Bilirubin AST ALT Alkaline Phosphatase Lactate Dehydrogenase Troponin T C-Reactive Protein Total Protein Albumin Prealbumin Triglycerides Cholesterol LDL Cholesterol Direct HDL Cholesterol Urine pH Urine WBC (Auto) Urine Creatinine Urine Total Protein Fluid Total Protein Vancomycin Trough Rheumatoid Factor Complement C4 Miscellaneous Test Crossmatch See Detail 11/25/16 11/25/16 11/25/16 00:03 04:42 04:42 WBC RBC 3.03 L Hgb 8.6 L Hct 25.3 L MCV MCH MCHC RDW 16.2 H Plt Count Lymph % (Auto) [place] % (Auto) 8.1 H Lymph # [place] # Baso # Seg Neutrophils % 71.3 H Seg Neuts % (Manual) Lymphocytes % (Manual) Monocytes % (Manual) Eosinophils % (Manual) Basophils % (Manual) Nucleated RBC % Seg Neutrophils # Seg Neutrophils # Man Lymphocytes # (Manual) Monocytes # (Manual) Eosinophils # (Manual) Basophils # (Manual) PT INR Fibrinogen dRVVT Confirm Interp Factor V Activity POC ABG pH POC ABG pCO2 POC ABG pO2 ABG pO2 ABG HCO3 ABG Base Excess ABG Hemoglobin Oxyhemoglobin Sodium Potassium Chloride Carbon Dioxide BUN 61 H Creatinine 3.0 H Glucose 102 H POC Glucose 113 H Lactic Acid Calcium 8.2 L Phosphorus Magnesium Direct Bilirubin AST ALT Alkaline Phosphatase 142 H Lactate Dehydrogenase Troponin T C-Reactive Protein Total Protein 5.7 L Albumin 1.5 L Prealbumin Triglycerides Cholesterol LDL Cholesterol Direct HDL Cholesterol Urine pH Urine WBC (Auto) Urine Creatinine Urine Total Protein Fluid Total Protein Vancomycin Trough Rheumatoid Factor Complement C4 Miscellaneous Test Crossmatch 11/25/16 11/25/16 11/25/16 05:12 11:31 14:12 WBC RBC Hgb Hct MCV MCH MCHC RDW Plt Count Lymph % (Auto) [place] % (Auto) Lymph # [place] # Baso # Seg Neutrophils % Seg Neuts % (Manual) Lymphocytes % (Manual) Monocytes % (Manual) Eosinophils % (Manual) Basophils % (Manual) Nucleated RBC % Seg Neutrophils # Seg Neutrophils # Man Lymphocytes # (Manual) Monocytes # (Manual) Eosinophils # (Manual) Basophils # (Manual) PT INR Fibrinogen dRVVT Confirm Interp Factor V Activity POC ABG pH 7.487 H POC ABG pCO2 POC ABG pO2 153 H ABG pO2 ABG HCO3 ABG Base Excess ABG Hemoglobin Oxyhemoglobin Sodium Potassium Chloride Carbon Dioxide BUN Creatinine Glucose POC Glucose 131 H 140 H Lactic Acid Calcium Phosphorus Magnesium Direct Bilirubin AST ALT Alkaline Phosphatase Lactate Dehydrogenase Troponin T C-Reactive Protein Total Protein Albumin Prealbumin Triglycerides Cholesterol LDL Cholesterol Direct HDL Cholesterol Urine pH Urine WBC (Auto) Urine Creatinine Urine Total Protein Fluid Total Protein Vancomycin Trough Rheumatoid Factor Complement C4 Miscellaneous Test Crossmatch 11/25/16 11/26/16 11/26/16 17:23 00:09 05:13 WBC RBC 2.94 L Hgb 8.4 L Hct 24.6 L MCV MCH MCHC RDW 16.4 H Plt Count Lymph % (Auto) [place] % (Auto) 12.3 H Lymph # [place] # 1.1 H Baso # Seg Neutrophils % Seg Neuts % (Manual) Lymphocytes % (Manual) Monocytes % (Manual) Eosinophils % (Manual) Basophils % (Manual) Nucleated RBC % Seg Neutrophils # Seg Neutrophils # Man Lymphocytes # (Manual) Monocytes # (Manual) Eosinophils # (Manual) Basophils # (Manual) PT INR Fibrinogen dRVVT Confirm Interp Factor V Activity POC ABG pH POC ABG pCO2 POC ABG pO2 ABG pO2 ABG HCO3 ABG Base Excess ABG Hemoglobin Oxyhemoglobin Sodium Potassium Chloride Carbon Dioxide BUN Creatinine Glucose POC Glucose 146 H 112 H Lactic Acid Calcium Phosphorus Magnesium Direct Bilirubin AST ALT Alkaline Phosphatase Lactate Dehydrogenase Troponin T C-Reactive Protein Total Protein Albumin Prealbumin Triglycerides Cholesterol LDL Cholesterol Direct HDL Cholesterol Urine pH Urine WBC (Auto) Urine Creatinine Urine Total Protein Fluid Total Protein Vancomycin Trough Rheumatoid Factor Complement C4 Miscellaneous Test Crossmatch 11/26/16 11/26/16 11/26/16 05:13 05:28 11:53 WBC RBC Hgb Hct MCV MCH MCHC RDW Plt Count Lymph % (Auto) [place] % (Auto) Lymph # [place] # Baso # Seg Neutrophils % Seg Neuts % (Manual) Lymphocytes % (Manual) Monocytes % (Manual) Eosinophils % (Manual) Basophils % (Manual) Nucleated RBC % Seg Neutrophils # Seg Neutrophils # Man Lymphocytes # (Manual) Monocytes # (Manual) Eosinophils # (Manual) Basophils # (Manual) PT INR Fibrinogen dRVVT Confirm Interp Factor V Activity POC ABG pH POC ABG pCO2 POC ABG pO2 ABG pO2 ABG HCO3 ABG Base Excess ABG Hemoglobin Oxyhemoglobin Sodium Potassium Chloride 97.8 L Carbon Dioxide BUN 37 H Creatinine 2.0 H Glucose 109 H POC Glucose 117 H 111 H Lactic Acid Calcium 7.9 L Phosphorus 1.80 L D Magnesium Direct Bilirubin AST ALT Alkaline Phosphatase Lactate Dehydrogenase Troponin T C-Reactive Protein Total Protein Albumin Prealbumin Triglycerides Cholesterol LDL Cholesterol Direct HDL Cholesterol Urine pH Urine WBC (Auto) Urine Creatinine Urine Total Protein Fluid Total Protein Vancomycin Trough Rheumatoid Factor Complement C4 Miscellaneous Test Crossmatch 11/26/16 11/27/16 11/27/16 17:14 04:50 06:02 WBC RBC Hgb Hct MCV MCH MCHC RDW Plt Count Lymph % (Auto) [place] % (Auto) Lymph # [place] # Baso # Seg Neutrophils % Seg Neuts % (Manual) Lymphocytes % (Manual) Monocytes % (Manual) Eosinophils % (Manual) Basophils % (Manual) Nucleated RBC % Seg Neutrophils # Seg Neutrophils # Man Lymphocytes # (Manual) Monocytes # (Manual) Eosinophils # (Manual) Basophils # (Manual) PT INR Fibrinogen dRVVT Confirm Interp Factor V Activity POC ABG pH POC ABG pCO2 POC ABG pO2 ABG pO2 75.2 L ABG HCO3 26.4 H ABG Base Excess ABG Hemoglobin 7.6 L Oxyhemoglobin 94.8 L Sodium Potassium Chloride Carbon Dioxide BUN 49 H Creatinine 2.3 H Glucose POC Glucose 115 H Lactic Acid Calcium Phosphorus 1.50 L Magnesium Direct Bilirubin AST ALT Alkaline Phosphatase Lactate Dehydrogenase Troponin T C-Reactive Protein Total Protein Albumin Prealbumin Triglycerides Cholesterol LDL Cholesterol Direct HDL Cholesterol Urine pH Urine WBC (Auto) Urine Creatinine Urine Total Protein Fluid Total Protein Vancomycin Trough Rheumatoid Factor Complement C4 Miscellaneous Test Crossmatch 11/27/16 11/27/16 11/27/16 06:02 11:25 17:25 WBC 11.6 H RBC 2.75 L Hgb 7.6 L Hct 23.4 L MCV MCH MCHC RDW 16.5 H Plt Count Lymph % (Auto) [place] % (Auto) Lymph # [place] # Baso # Seg Neutrophils % Seg Neuts % (Manual) Lymphocytes % (Manual) Monocytes % (Manual) Eosinophils % (Manual) Basophils % (Manual) Nucleated RBC % Seg Neutrophils # Seg Neutrophils # Man Lymphocytes # (Manual) Monocytes # (Manual) Eosinophils # (Manual) Basophils # (Manual) PT INR Fibrinogen dRVVT Confirm Interp Factor V Activity POC ABG pH POC ABG pCO2 POC ABG pO2 ABG pO2 ABG HCO3 ABG Base Excess ABG Hemoglobin Oxyhemoglobin Sodium Potassium Chloride Carbon Dioxide BUN Creatinine Glucose POC Glucose 114 H 126 H Lactic Acid Calcium Phosphorus Magnesium Direct Bilirubin AST ALT Alkaline Phosphatase Lactate Dehydrogenase Troponin T C-Reactive Protein Total Protein Albumin Prealbumin Triglycerides Cholesterol LDL Cholesterol Direct HDL Cholesterol Urine pH Urine WBC (Auto) Urine Creatinine Urine Total Protein Fluid Total Protein Vancomycin Trough Rheumatoid Factor Complement C4 Miscellaneous Test Crossmatch 11/28/16 11/28/16 11/28/16 04:45 05:33 05:44 WBC RBC Hgb Hct MCV MCH MCHC RDW Plt Count Lymph % (Auto) [place] % (Auto) Lymph # [place] # Baso # Seg Neutrophils % Seg Neuts % (Manual) Lymphocytes % (Manual) Monocytes % (Manual) Eosinophils % (Manual) Basophils % (Manual) Nucleated RBC % Seg Neutrophils # Seg Neutrophils # Man Lymphocytes # (Manual) Monocytes # (Manual) Eosinophils # (Manual) Basophils # (Manual) PT INR Fibrinogen dRVVT Confirm Interp Factor V Activity POC ABG pH POC ABG pCO2 POC ABG pO2 ABG pO2 99.3 H ABG HCO3 ABG Base Excess ABG Hemoglobin 8.3 L Oxyhemoglobin Sodium Potassium Chloride Carbon Dioxide BUN 63 H Creatinine 2.4 H Glucose 102 H POC Glucose 108 H Lactic Acid Calcium Phosphorus 1.80 L Magnesium Direct Bilirubin AST ALT Alkaline Phosphatase Lactate Dehydrogenase Troponin T C-Reactive Protein Total Protein Albumin Prealbumin Triglycerides Cholesterol LDL Cholesterol Direct HDL Cholesterol Urine pH Urine WBC (Auto) Urine Creatinine Urine Total Protein Fluid Total Protein Vancomycin Trough Rheumatoid Factor Complement C4 Miscellaneous Test Crossmatch 11/28/16 11/28/16 11/28/16 12:31 16:09 23:46 WBC RBC Hgb Hct MCV MCH MCHC RDW Plt Count Lymph % (Auto) [place] % (Auto) Lymph # [place] # Baso # Seg Neutrophils % Seg Neuts % (Manual) Lymphocytes % (Manual) Monocytes % (Manual) Eosinophils % (Manual) Basophils % (Manual) Nucleated RBC % Seg Neutrophils # Seg Neutrophils # Man Lymphocytes # (Manual) Monocytes # (Manual) Eosinophils # (Manual) Basophils # (Manual) PT INR Fibrinogen dRVVT Confirm Interp Factor V Activity POC ABG pH POC ABG pCO2 POC ABG pO2 ABG pO2 ABG HCO3 ABG Base Excess ABG Hemoglobin Oxyhemoglobin Sodium Potassium Chloride Carbon Dioxide BUN Creatinine Glucose POC Glucose 126 H 111 H 119 H Lactic Acid Calcium Phosphorus Magnesium Direct Bilirubin AST ALT Alkaline Phosphatase Lactate Dehydrogenase Troponin T C-Reactive Protein Total Protein Albumin Prealbumin Triglycerides Cholesterol LDL Cholesterol Direct HDL Cholesterol Urine pH Urine WBC (Auto) Urine Creatinine Urine Total Protein Fluid Total Protein Vancomycin Trough Rheumatoid Factor Complement C4 Miscellaneous Test Crossmatch 11/29/16 11/29/16 11/29/16 03:33 04:52 05:10 WBC RBC Hgb Hct MCV MCH MCHC RDW Plt Count Lymph % (Auto) [place] % (Auto) Lymph # [place] # Baso # Seg Neutrophils % Seg Neuts % (Manual) Lymphocytes % (Manual) Monocytes % (Manual) Eosinophils % (Manual) Basophils % (Manual) Nucleated RBC % Seg Neutrophils # Seg Neutrophils # Man Lymphocytes # (Manual) Monocytes # (Manual) Eosinophils # (Manual) Basophils # (Manual) PT INR Fibrinogen dRVVT Confirm Interp Factor V Activity POC ABG pH POC ABG pCO2 POC ABG pO2 ABG pO2 ABG HCO3 ABG Base Excess ABG Hemoglobin 7.0 L Oxyhemoglobin 94.9 L Sodium Potassium Chloride Carbon Dioxide BUN 73 H Creatinine 2.7 H Glucose POC Glucose 108 H Lactic Acid Calcium Phosphorus Magnesium Direct Bilirubin AST ALT Alkaline Phosphatase Lactate Dehydrogenase Troponin T C-Reactive Protein Total Protein Albumin Prealbumin Triglycerides Cholesterol LDL Cholesterol Direct HDL Cholesterol Urine pH Urine WBC (Auto) Urine Creatinine Urine Total Protein Fluid Total Protein Vancomycin Trough Rheumatoid Factor Complement C4 Miscellaneous Test Crossmatch 11/29/16 11/29/16 11/29/16 12:16 18:05 23:46 WBC RBC Hgb Hct MCV MCH MCHC RDW Plt Count Lymph % (Auto) [place] % (Auto) Lymph # [place] # Baso # Seg Neutrophils % Seg Neuts % (Manual) Lymphocytes % (Manual) Monocytes % (Manual) Eosinophils % (Manual) Basophils % (Manual) Nucleated RBC % Seg Neutrophils # Seg Neutrophils # Man Lymphocytes # (Manual) Monocytes # (Manual) Eosinophils # (Manual) Basophils # (Manual) PT INR Fibrinogen dRVVT Confirm Interp Factor V Activity POC ABG pH POC ABG pCO2 POC ABG pO2 ABG pO2 ABG HCO3 ABG Base Excess ABG Hemoglobin Oxyhemoglobin Sodium Potassium Chloride Carbon Dioxide BUN Creatinine Glucose POC Glucose 133 H 146 H 141 H Lactic Acid Calcium Phosphorus Magnesium Direct Bilirubin AST ALT Alkaline Phosphatase Lactate Dehydrogenase Troponin T C-Reactive Protein Total Protein Albumin Prealbumin Triglycerides Cholesterol LDL Cholesterol Direct HDL Cholesterol Urine pH Urine WBC (Auto) Urine Creatinine Urine Total Protein Fluid Total Protein Vancomycin Trough Rheumatoid Factor Complement C4 Miscellaneous Test Crossmatch 11/30/16 11/30/16 11/30/16 04:17 04:17 04:32 WBC 12.0 H RBC 2.80 L Hgb 7.8 L Hct 23.6 L MCV MCH MCHC RDW 16.6 H Plt Count Lymph % (Auto) [place] % (Auto) 11.3 H Lymph # [place] # 1.4 H Baso # Seg Neutrophils % Seg Neuts % (Manual) Lymphocytes % (Manual) Monocytes % (Manual) Eosinophils % (Manual) Basophils % (Manual) Nucleated RBC % Seg Neutrophils # 8.2 H Seg Neutrophils # Man Lymphocytes # (Manual) Monocytes # (Manual) Eosinophils # (Manual) Basophils # (Manual) PT INR Fibrinogen dRVVT Confirm Interp Factor V Activity POC ABG pH POC ABG pCO2 POC ABG pO2 ABG pO2 ABG HCO3 ABG Base Excess ABG Hemoglobin Oxyhemoglobin Sodium 169 H* D Potassium 5.1 H Chloride 121.5 H Carbon Dioxide BUN 34 H Creatinine 1.3 H D Glucose 133 H POC Glucose 131 H Lactic Acid Calcium 10.3 H Phosphorus Magnesium Direct Bilirubin AST ALT Alkaline Phosphatase Lactate Dehydrogenase Troponin T C-Reactive Protein Total Protein Albumin Prealbumin Triglycerides Cholesterol LDL Cholesterol Direct HDL Cholesterol Urine pH Urine WBC (Auto) Urine Creatinine Urine Total Protein Fluid Total Protein Vancomycin Trough Rheumatoid Factor Complement C4 Miscellaneous Test Crossmatch 11/30/16 11/30/16 11/30/16 05:45 11:10 17:26 WBC RBC Hgb Hct MCV MCH MCHC RDW Plt Count Lymph % (Auto) [place] % (Auto) Lymph # [place] # Baso # Seg Neutrophils % Seg Neuts % (Manual) Lymphocytes % (Manual) Monocytes % (Manual) Eosinophils % (Manual) Basophils % (Manual) Nucleated RBC % Seg Neutrophils # Seg Neutrophils # Man Lymphocytes # (Manual) Monocytes # (Manual) Eosinophils # (Manual) Basophils # (Manual) PT INR Fibrinogen dRVVT Confirm Interp Factor V Activity POC ABG pH POC ABG pCO2 POC ABG pO2 ABG pO2 ABG HCO3 ABG Base Excess ABG Hemoglobin Oxyhemoglobin Sodium Potassium Chloride Carbon Dioxide BUN 45 H Creatinine 1.6 H Glucose 131 H POC Glucose 146 H 134 H Lactic Acid Calcium Phosphorus Magnesium Direct Bilirubin AST ALT Alkaline Phosphatase Lactate Dehydrogenase Troponin T C-Reactive Protein Total Protein Albumin Prealbumin Triglycerides Cholesterol LDL Cholesterol Direct HDL Cholesterol Urine pH Urine WBC (Auto) Urine Creatinine Urine Total Protein Fluid Total Protein Vancomycin Trough Rheumatoid Factor Complement C4 Miscellaneous Test Crossmatch 11/30/16 12/01/16 12/01/16 23:35 00:06 03:35 WBC RBC Hgb Hct MCV MCH MCHC RDW Plt Count Lymph % (Auto) [place] % (Auto) Lymph # [place] # Baso # Seg Neutrophils % Seg Neuts % (Manual) Lymphocytes % (Manual) Monocytes % (Manual) Eosinophils % (Manual) Basophils % (Manual) Nucleated RBC % Seg Neutrophils # Seg Neutrophils # Man Lymphocytes # (Manual) Monocytes # (Manual) Eosinophils # (Manual) Basophils # (Manual) PT INR Fibrinogen dRVVT Confirm Interp Factor V Activity POC ABG pH POC ABG pCO2 POC ABG pO2 ABG pO2 ABG HCO3 ABG Base Excess ABG Hemoglobin 6.9 L Oxyhemoglobin Sodium Potassium Chloride Carbon Dioxide BUN 58 H Creatinine 1.8 H Glucose 146 H POC Glucose 151 H Lactic Acid Calcium Phosphorus Magnesium Direct Bilirubin AST ALT Alkaline Phosphatase Lactate Dehydrogenase Troponin T C-Reactive Protein Total Protein Albumin Prealbumin Triglycerides Cholesterol LDL Cholesterol Direct HDL Cholesterol Urine pH Urine WBC (Auto) Urine Creatinine Urine Total Protein Fluid Total Protein Vancomycin Trough Rheumatoid Factor Complement C4 Miscellaneous Test Crossmatch 12/01/16 12/01/16 12/01/16 03:35 05:47 11:52 WBC 12.3 H RBC 2.82 L Hgb 7.8 L Hct 23.7 L MCV MCH MCHC RDW 16.7 H Plt Count Lymph % (Auto) [place] % (Auto) 9.8 H Lymph # [place] # 1.2 H Baso # Seg Neutrophils % Seg Neuts % (Manual) Lymphocytes % (Manual) Monocytes % (Manual) Eosinophils % (Manual) Basophils % (Manual) Nucleated RBC % Seg Neutrophils # 8.4 H Seg Neutrophils # Man Lymphocytes # (Manual) Monocytes # (Manual) Eosinophils # (Manual) Basophils # (Manual) PT INR Fibrinogen dRVVT Confirm Interp Factor V Activity POC ABG pH POC ABG pCO2 POC ABG pO2 ABG pO2 ABG HCO3 ABG Base Excess ABG Hemoglobin Oxyhemoglobin Sodium Potassium Chloride Carbon Dioxide BUN Creatinine Glucose POC Glucose 152 H 152 H Lactic Acid Calcium Phosphorus Magnesium Direct Bilirubin AST ALT Alkaline Phosphatase Lactate Dehydrogenase Troponin T C-Reactive Protein Total Protein Albumin Prealbumin Triglycerides Cholesterol LDL Cholesterol Direct HDL Cholesterol Urine pH Urine WBC (Auto) Urine Creatinine Urine Total Protein Fluid Total Protein Vancomycin Trough Rheumatoid Factor Complement C4 Miscellaneous Test Crossmatch 12/01/16 12/01/16 12/02/16 17:40 23:41 05:00 WBC RBC Hgb Hct MCV MCH MCHC RDW Plt Count Lymph % (Auto) [place] % (Auto) Lymph # [place] # Baso # Seg Neutrophils % Seg Neuts % (Manual) Lymphocytes % (Manual) Monocytes % (Manual) Eosinophils % (Manual) Basophils % (Manual) Nucleated RBC % Seg Neutrophils # Seg Neutrophils # Man Lymphocytes # (Manual) Monocytes # (Manual) Eosinophils # (Manual) Basophils # (Manual) PT INR Fibrinogen dRVVT Confirm Interp Factor V Activity POC ABG pH POC ABG pCO2 POC ABG pO2 ABG pO2 ABG HCO3 ABG Base Excess ABG Hemoglobin Oxyhemoglobin Sodium Potassium Chloride Carbon Dioxide BUN 45 H Creatinine Glucose 115 H POC Glucose 140 H 144 H Lactic Acid Calcium Phosphorus Magnesium Direct Bilirubin AST ALT Alkaline Phosphatase Lactate Dehydrogenase Troponin T C-Reactive Protein Total Protein Albumin Prealbumin Triglycerides Cholesterol LDL Cholesterol Direct HDL Cholesterol Urine pH Urine WBC (Auto) Urine Creatinine Urine Total Protein Fluid Total Protein Vancomycin Trough Rheumatoid Factor Complement C4 Miscellaneous Test Crossmatch 12/02/16 12/02/16 12/02/16 05:31 11:20 17:38 WBC RBC Hgb Hct MCV MCH MCHC RDW Plt Count Lymph % (Auto) [place] % (Auto) Lymph # [place] # Baso # Seg Neutrophils % Seg Neuts % (Manual) Lymphocytes % (Manual) Monocytes % (Manual) Eosinophils % (Manual) Basophils % (Manual) Nucleated RBC % Seg Neutrophils # Seg Neutrophils # Man Lymphocytes # (Manual) Monocytes # (Manual) Eosinophils # (Manual) Basophils # (Manual) PT INR Fibrinogen dRVVT Confirm Interp Factor V Activity POC ABG pH POC ABG pCO2 POC ABG pO2 ABG pO2 ABG HCO3 ABG Base Excess ABG Hemoglobin Oxyhemoglobin Sodium Potassium Chloride Carbon Dioxide BUN Creatinine Glucose POC Glucose 136 H 177 H 139 H Lactic Acid Calcium Phosphorus Magnesium Direct Bilirubin AST ALT Alkaline Phosphatase Lactate Dehydrogenase Troponin T C-Reactive Protein Total Protein Albumin Prealbumin Triglycerides Cholesterol LDL Cholesterol Direct HDL Cholesterol Urine pH Urine WBC (Auto) Urine Creatinine Urine Total Protein Fluid Total Protein Vancomycin Trough Rheumatoid Factor Complement C4 Miscellaneous Test Crossmatch 12/02/16 12/03/16 12/03/16 23:43 04:00 04:00 WBC 20.4 H RBC 2.74 L Hgb 7.4 L Hct 23.6 L MCV MCH 27 L MCHC RDW 17.1 H Plt Count Lymph % (Auto) [place] % (Auto) Lymph # [place] # Baso # Seg Neutrophils % Seg Neuts % (Manual) 31.0 L Lymphocytes % (Manual) Monocytes % (Manual) Eosinophils % (Manual) Basophils % (Manual) Nucleated RBC % Seg Neutrophils # Seg Neutrophils # Man Lymphocytes # (Manual) Monocytes # (Manual) Eosinophils # (Manual) Basophils # (Manual) PT INR Fibrinogen dRVVT Confirm Interp Factor V Activity POC ABG pH POC ABG pCO2 POC ABG pO2 ABG pO2 ABG HCO3 ABG Base Excess ABG Hemoglobin Oxyhemoglobin Sodium Potassium Chloride Carbon Dioxide BUN 61 H Creatinine 1.6 H Glucose 119 H POC Glucose 158 H Lactic Acid Calcium Phosphorus Magnesium Direct Bilirubin AST ALT Alkaline Phosphatase Lactate Dehydrogenase Troponin T C-Reactive Protein Total Protein Albumin Prealbumin Triglycerides Cholesterol LDL Cholesterol Direct HDL Cholesterol Urine pH Urine WBC (Auto) Urine Creatinine Urine Total Protein Fluid Total Protein Vancomycin Trough Rheumatoid Factor Complement C4 Miscellaneous Test Crossmatch 12/03/16 12/03/16 12/03/16 05:02 12:11 18:16 WBC RBC Hgb Hct MCV MCH MCHC RDW Plt Count Lymph % (Auto) [place] % (Auto) Lymph # [place] # Baso # Seg Neutrophils % Seg Neuts % (Manual) Lymphocytes % (Manual) Monocytes % (Manual) Eosinophils % (Manual) Basophils % (Manual) Nucleated RBC % Seg Neutrophils # Seg Neutrophils # Man Lymphocytes # (Manual) Monocytes # (Manual) Eosinophils # (Manual) Basophils # (Manual) PT INR Fibrinogen dRVVT Confirm Interp Factor V Activity POC ABG pH POC ABG pCO2 POC ABG pO2 ABG pO2 ABG HCO3 ABG Base Excess ABG Hemoglobin Oxyhemoglobin Sodium Potassium Chloride Carbon Dioxide BUN Creatinine Glucose POC Glucose 146 H 157 H 124 H Lactic Acid Calcium Phosphorus Magnesium Direct Bilirubin AST ALT Alkaline Phosphatase Lactate Dehydrogenase Troponin T C-Reactive Protein Total Protein Albumin Prealbumin Triglycerides Cholesterol LDL Cholesterol Direct HDL Cholesterol Urine pH Urine WBC (Auto) Urine Creatinine Urine Total Protein Fluid Total Protein Vancomycin Trough Rheumatoid Factor Complement C4 Miscellaneous Test Crossmatch 12/03/16 12/04/16 12/04/16 23:41 04:00 04:45 WBC RBC Hgb Hct MCV MCH MCHC RDW Plt Count Lymph % (Auto) [place] % (Auto) Lymph # [place] # Baso # Seg Neutrophils % Seg Neuts % (Manual) Lymphocytes % (Manual) Monocytes % (Manual) Eosinophils % (Manual) Basophils % (Manual) Nucleated RBC % Seg Neutrophils # Seg Neutrophils # Man Lymphocytes # (Manual) Monocytes # (Manual) Eosinophils # (Manual) Basophils # (Manual) PT INR Fibrinogen dRVVT Confirm Interp Factor V Activity POC ABG pH POC ABG pCO2 POC ABG pO2 ABG pO2 ABG HCO3 ABG Base Excess ABG Hemoglobin Oxyhemoglobin Sodium Potassium Chloride Carbon Dioxide BUN 76 H Creatinine 1.6 H Glucose POC Glucose 130 H 136 H Lactic Acid Calcium Phosphorus Magnesium Direct Bilirubin AST ALT Alkaline Phosphatase 155 H Lactate Dehydrogenase Troponin T C-Reactive Protein Total Protein 5.5 L Albumin 1.5 L Prealbumin Triglycerides Cholesterol LDL Cholesterol Direct HDL Cholesterol Urine pH Urine WBC (Auto) Urine Creatinine Urine Total Protein Fluid Total Protein Vancomycin Trough Rheumatoid Factor Complement C4 Miscellaneous Test Crossmatch 12/04/16 12/04/16 12/05/16 12:08 17:23 00:10 WBC RBC Hgb Hct MCV MCH MCHC RDW Plt Count Lymph % (Auto) [place] % (Auto) Lymph # [place] # Baso # Seg Neutrophils % Seg Neuts % (Manual) Lymphocytes % (Manual) Monocytes % (Manual) Eosinophils % (Manual) Basophils % (Manual) Nucleated RBC % Seg Neutrophils # Seg Neutrophils # Man Lymphocytes # (Manual) Monocytes # (Manual) Eosinophils # (Manual) Basophils # (Manual) PT INR Fibrinogen dRVVT Confirm Interp Factor V Activity POC ABG pH POC ABG pCO2 POC ABG pO2 ABG pO2 ABG HCO3 ABG Base Excess ABG Hemoglobin Oxyhemoglobin Sodium Potassium Chloride Carbon Dioxide BUN Creatinine Glucose POC Glucose 114 H 129 H 124 H Lactic Acid Calcium Phosphorus Magnesium Direct Bilirubin AST ALT Alkaline Phosphatase Lactate Dehydrogenase Troponin T C-Reactive Protein Total Protein Albumin Prealbumin Triglycerides Cholesterol LDL Cholesterol Direct HDL Cholesterol Urine pH Urine WBC (Auto) Urine Creatinine Urine Total Protein Fluid Total Protein Vancomycin Trough Rheumatoid Factor Complement C4 Miscellaneous Test Crossmatch 12/05/16 12/05/16 12/05/16 05:00 05:00 05:18 WBC RBC Hgb Hct MCV MCH MCHC RDW Plt Count Lymph % (Auto) [place] % (Auto) Lymph # [place] # Baso # Seg Neutrophils % Seg Neuts % (Manual) Lymphocytes % (Manual) Monocytes % (Manual) Eosinophils % (Manual) Basophils % (Manual) Nucleated RBC % Seg Neutrophils # Seg Neutrophils # Man Lymphocytes # (Manual) Monocytes # (Manual) Eosinophils # (Manual) Basophils # (Manual) PT INR Fibrinogen dRVVT Confirm Interp Factor V Activity POC ABG pH POC ABG pCO2 POC ABG pO2 ABG pO2 ABG HCO3 ABG Base Excess ABG Hemoglobin Oxyhemoglobin Sodium Potassium Chloride Carbon Dioxide 21 L BUN 85 H Creatinine 1.9 H Glucose 131 H POC Glucose 154 H Lactic Acid Calcium Phosphorus Magnesium Direct Bilirubin AST ALT Alkaline Phosphatase Lactate Dehydrogenase Troponin T C-Reactive Protein 19.30 H Total Protein Albumin Prealbumin Triglycerides Cholesterol LDL Cholesterol Direct HDL Cholesterol Urine pH Urine WBC (Auto) Urine Creatinine Urine Total Protein Fluid Total Protein Vancomycin Trough Rheumatoid Factor Complement C4 Miscellaneous Test Crossmatch 12/05/16 12/05/16 12/05/16 11:43 17:46 23:25 WBC RBC Hgb Hct MCV MCH MCHC RDW Plt Count Lymph % (Auto) [place] % (Auto) Lymph # [place] # Baso # Seg Neutrophils % Seg Neuts % (Manual) Lymphocytes % (Manual) Monocytes % (Manual) Eosinophils % (Manual) Basophils % (Manual) Nucleated RBC % Seg Neutrophils # Seg Neutrophils # Man Lymphocytes # (Manual) Monocytes # (Manual) Eosinophils # (Manual) Basophils # (Manual) PT INR Fibrinogen dRVVT Confirm Interp Factor V Activity POC ABG pH POC ABG pCO2 POC ABG pO2 ABG pO2 ABG HCO3 ABG Base Excess ABG Hemoglobin Oxyhemoglobin Sodium Potassium Chloride Carbon Dioxide BUN Creatinine Glucose POC Glucose 117 H 113 H 111 H Lactic Acid Calcium Phosphorus Magnesium Direct Bilirubin AST ALT Alkaline Phosphatase Lactate Dehydrogenase Troponin T C-Reactive Protein Total Protein Albumin Prealbumin Triglycerides Cholesterol LDL Cholesterol Direct HDL Cholesterol Urine pH Urine WBC (Auto) Urine Creatinine Urine Total Protein Fluid Total Protein Vancomycin Trough Rheumatoid Factor Complement C4 Miscellaneous Test Crossmatch 12/05/16 12/06/16 12/06/16 Unknown 04:58 06:00 WBC RBC Hgb Hct MCV MCH MCHC RDW Plt Count Lymph % (Auto) [place] % (Auto) Lymph # [place] # Baso # Seg Neutrophils % Seg Neuts % (Manual) Lymphocytes % (Manual) Monocytes % (Manual) Eosinophils % (Manual) Basophils % (Manual) Nucleated RBC % Seg Neutrophils # Seg Neutrophils # Man Lymphocytes # (Manual) Monocytes # (Manual) Eosinophils # (Manual) Basophils # (Manual) PT INR Fibrinogen dRVVT Confirm Interp Factor V Activity POC ABG pH POC ABG pCO2 POC ABG pO2 ABG pO2 75.2 L ABG HCO3 ABG Base Excess -3.4 L ABG Hemoglobin 7.4 L Oxyhemoglobin 94.5 L Sodium Potassium Chloride Carbon Dioxide 20 L BUN 99 H Creatinine 2.1 H Glucose 126 H POC Glucose 145 H Lactic Acid Calcium Phosphorus 4.80 H Magnesium Direct Bilirubin AST ALT Alkaline Phosphatase Lactate Dehydrogenase Troponin T C-Reactive Protein Total Protein Albumin Prealbumin Triglycerides Cholesterol LDL Cholesterol Direct HDL Cholesterol Urine pH Urine WBC (Auto) Urine Creatinine Urine Total Protein Fluid Total Protein Vancomycin Trough Rheumatoid Factor Complement C4 Miscellaneous Test Crossmatch 12/06/16 12/06/16 12/06/16 06:46 11:54 17:55 WBC RBC Hgb 8.3 L Hct 26.4 L MCV MCH MCHC RDW Plt Count Lymph % (Auto) [place] % (Auto) Lymph # [place] # Baso # Seg Neutrophils % Seg Neuts % (Manual) Lymphocytes % (Manual) Monocytes % (Manual) Eosinophils % (Manual) Basophils % (Manual) Nucleated RBC % Seg Neutrophils # Seg Neutrophils # Man Lymphocytes # (Manual) Monocytes # (Manual) Eosinophils # (Manual) Basophils # (Manual) PT INR Fibrinogen dRVVT Confirm Interp Factor V Activity POC ABG pH POC ABG pCO2 POC ABG pO2 ABG pO2 ABG HCO3 ABG Base Excess ABG Hemoglobin Oxyhemoglobin Sodium Potassium Chloride Carbon Dioxide BUN Creatinine Glucose POC Glucose 126 H 157 H Lactic Acid Calcium Phosphorus Magnesium Direct Bilirubin AST ALT Alkaline Phosphatase Lactate Dehydrogenase Troponin T C-Reactive Protein Total Protein Albumin Prealbumin Triglycerides Cholesterol LDL Cholesterol Direct HDL Cholesterol Urine pH Urine WBC (Auto) Urine Creatinine Urine Total Protein Fluid Total Protein Vancomycin Trough Rheumatoid Factor Complement C4 Miscellaneous Test Crossmatch 12/06/16 12/07/16 12/07/16 23:59 05:34 06:30 WBC RBC Hgb Hct MCV MCH MCHC RDW Plt Count Lymph % (Auto) [place] % (Auto) Lymph # [place] # Baso # Seg Neutrophils % Seg Neuts % (Manual) Lymphocytes % (Manual) Monocytes % (Manual) Eosinophils % (Manual) Basophils % (Manual) Nucleated RBC % Seg Neutrophils # Seg Neutrophils # Man Lymphocytes # (Manual) Monocytes # (Manual) Eosinophils # (Manual) Basophils # (Manual) PT INR Fibrinogen dRVVT Confirm Interp Factor V Activity POC ABG pH POC ABG pCO2 POC ABG pO2 ABG pO2 ABG HCO3 ABG Base Excess ABG Hemoglobin Oxyhemoglobin Sodium Potassium Chloride Carbon Dioxide BUN 67 H Creatinine 1.4 H Glucose 126 H POC Glucose 129 H 129 H Lactic Acid Calcium Phosphorus Magnesium Direct Bilirubin AST ALT Alkaline Phosphatase Lactate Dehydrogenase Troponin T C-Reactive Protein Total Protein Albumin Prealbumin Triglycerides Cholesterol LDL Cholesterol Direct HDL Cholesterol Urine pH Urine WBC (Auto) Urine Creatinine Urine Total Protein Fluid Total Protein Vancomycin Trough Rheumatoid Factor Complement C4 Miscellaneous Test Crossmatch 12/07/16 12/07/16 12/07/16 06:30 08:00 09:45 WBC 18.8 H RBC 2.52 L Hgb 6.9 L 6.8 L Hct 21.2 L 21.1 L MCV MCH 27 L MCHC RDW 18.0 H Plt Count Lymph % (Auto) [place] % (Auto) 9.9 H Lymph # [place] # 1.9 H Baso # Seg Neutrophils % 71.8 H Seg Neuts % (Manual) Lymphocytes % (Manual) Monocytes % (Manual) Eosinophils % (Manual) Basophils % (Manual) Nucleated RBC % Seg Neutrophils # 13.5 H Seg Neutrophils # Man Lymphocytes # (Manual) Monocytes # (Manual) Eosinophils # (Manual) Basophils # (Manual) PT INR Fibrinogen dRVVT Confirm Interp Factor V Activity POC ABG pH POC ABG pCO2 POC ABG pO2 ABG pO2 ABG HCO3 ABG Base Excess ABG Hemoglobin Oxyhemoglobin Sodium Potassium Chloride Carbon Dioxide BUN Creatinine Glucose POC Glucose Lactic Acid Calcium Phosphorus Magnesium Direct Bilirubin AST ALT Alkaline Phosphatase Lactate Dehydrogenase Troponin T C-Reactive Protein Total Protein Albumin Prealbumin Triglycerides Cholesterol LDL Cholesterol Direct HDL Cholesterol Urine pH Urine WBC (Auto) Urine Creatinine Urine Total Protein Fluid Total Protein Vancomycin Trough Rheumatoid Factor Complement C4 Miscellaneous Test Crossmatch See Detail 12/07/16 12/07/16 12/07/16 11:44 18:19 23:59 WBC RBC Hgb Hct MCV MCH MCHC RDW Plt Count Lymph % (Auto) [place] % (Auto) Lymph # [place] # Baso # Seg Neutrophils % Seg Neuts % (Manual) Lymphocytes % (Manual) Monocytes % (Manual) Eosinophils % (Manual) Basophils % (Manual) Nucleated RBC % Seg Neutrophils # Seg Neutrophils # Man Lymphocytes # (Manual) Monocytes # (Manual) Eosinophils # (Manual) Basophils # (Manual) PT INR Fibrinogen dRVVT Confirm Interp Factor V Activity POC ABG pH POC ABG pCO2 POC ABG pO2 ABG pO2 ABG HCO3 ABG Base Excess ABG Hemoglobin Oxyhemoglobin Sodium Potassium Chloride Carbon Dioxide BUN Creatinine Glucose POC Glucose 137 H 138 H 133 H Lactic Acid Calcium Phosphorus Magnesium Direct Bilirubin AST ALT Alkaline Phosphatase Lactate Dehydrogenase Troponin T C-Reactive Protein Total Protein Albumin Prealbumin Triglycerides Cholesterol LDL Cholesterol Direct HDL Cholesterol Urine pH Urine WBC (Auto) Urine Creatinine Urine Total Protein Fluid Total Protein Vancomycin Trough Rheumatoid Factor Complement C4 Miscellaneous Test Crossmatch 12/08/16 12/08/16 12/08/16 05:25 05:30 05:30 WBC 23.8 H RBC 2.88 L Hgb 8.1 L Hct 24.3 L MCV MCH MCHC RDW 16.7 H Plt Count Lymph % (Auto) [place] % (Auto) Lymph # [place] # Baso # Seg Neutrophils % Seg Neuts % (Manual) 76.0 H Lymphocytes % (Manual) 9.0 L Monocytes % (Manual) 9.0 H Eosinophils % (Manual) Basophils % (Manual) Nucleated RBC % Seg Neutrophils # Seg Neutrophils # Man 18.1 H Lymphocytes # (Manual) Monocytes # (Manual) 2.1 H Eosinophils # (Manual) Basophils # (Manual) PT INR Fibrinogen dRVVT Confirm Interp Factor V Activity POC ABG pH POC ABG pCO2 POC ABG pO2 ABG pO2 ABG HCO3 ABG Base Excess ABG Hemoglobin Oxyhemoglobin Sodium Potassium Chloride Carbon Dioxide 21 L BUN 76 H Creatinine 1.6 H Glucose 133 H POC Glucose 177 H Lactic Acid Calcium Phosphorus Magnesium Direct Bilirubin AST ALT Alkaline Phosphatase Lactate Dehydrogenase Troponin T C-Reactive Protein Total Protein Albumin Prealbumin Triglycerides Cholesterol LDL Cholesterol Direct HDL Cholesterol Urine pH Urine WBC (Auto) Urine Creatinine Urine Total Protein Fluid Total Protein Vancomycin Trough Rheumatoid Factor Complement C4 Miscellaneous Test Crossmatch 12/08/16 12/08/16 12/09/16 11:45 18:00 00:00 WBC RBC Hgb Hct MCV MCH MCHC RDW Plt Count Lymph % (Auto) [place] % (Auto) Lymph # [place] # Baso # Seg Neutrophils % Seg Neuts % (Manual) Lymphocytes % (Manual) Monocytes % (Manual) Eosinophils % (Manual) Basophils % (Manual) Nucleated RBC % Seg Neutrophils # Seg Neutrophils # Man Lymphocytes # (Manual) Monocytes # (Manual) Eosinophils # (Manual) Basophils # (Manual) PT INR Fibrinogen dRVVT Confirm Interp Factor V Activity POC ABG pH POC ABG pCO2 POC ABG pO2 ABG pO2 ABG HCO3 ABG Base Excess ABG Hemoglobin Oxyhemoglobin Sodium Potassium Chloride Carbon Dioxide BUN Creatinine Glucose POC Glucose 163 H 123 H 137 H Lactic Acid Calcium Phosphorus Magnesium Direct Bilirubin AST ALT Alkaline Phosphatase Lactate Dehydrogenase Troponin T C-Reactive Protein Total Protein Albumin Prealbumin Triglycerides Cholesterol LDL Cholesterol Direct HDL Cholesterol Urine pH Urine WBC (Auto) Urine Creatinine Urine Total Protein Fluid Total Protein Vancomycin Trough Rheumatoid Factor Complement C4 Miscellaneous Test Crossmatch 12/09/16 12/09/16 12/09/16 05:34 06:00 06:00 WBC 15.5 H RBC 2.87 L Hgb 8.0 L Hct 24.2 L MCV MCH MCHC RDW 17.2 H Plt Count Lymph % (Auto) [place] % (Auto) 11.6 H Lymph # [place] # 1.8 H Baso # Seg Neutrophils % 70.8 H Seg Neuts % (Manual) Lymphocytes % (Manual) Monocytes % (Manual) Eosinophils % (Manual) Basophils % (Manual) Nucleated RBC % Seg Neutrophils # 11.0 H Seg Neutrophils # Man Lymphocytes # (Manual) Monocytes # (Manual) Eosinophils # (Manual) Basophils # (Manual) PT INR Fibrinogen dRVVT Confirm Interp Factor V Activity POC ABG pH POC ABG pCO2 POC ABG pO2 ABG pO2 ABG HCO3 ABG Base Excess ABG Hemoglobin Oxyhemoglobin Sodium Potassium Chloride Carbon Dioxide BUN 51 H Creatinine Glucose 117 H POC Glucose 136 H Lactic Acid Calcium Phosphorus Magnesium Direct Bilirubin AST ALT Alkaline Phosphatase Lactate Dehydrogenase Troponin T C-Reactive Protein Total Protein Albumin Prealbumin Triglycerides Cholesterol LDL Cholesterol Direct HDL Cholesterol Urine pH Urine WBC (Auto) Urine Creatinine Urine Total Protein Fluid Total Protein Vancomycin Trough Rheumatoid Factor Complement C4 Miscellaneous Test Crossmatch 12/09/16 12/09/16 12/09/16 12:29 17:52 23:10 WBC RBC Hgb Hct MCV MCH MCHC RDW Plt Count Lymph % (Auto) [place] % (Auto) Lymph # [place] # Baso # Seg Neutrophils % Seg Neuts % (Manual) Lymphocytes % (Manual) Monocytes % (Manual) Eosinophils % (Manual) Basophils % (Manual) Nucleated RBC % Seg Neutrophils # Seg Neutrophils # Man Lymphocytes # (Manual) Monocytes # (Manual) Eosinophils # (Manual) Basophils # (Manual) PT INR Fibrinogen dRVVT Confirm Interp Factor V Activity POC ABG pH POC ABG pCO2 POC ABG pO2 ABG pO2 ABG HCO3 ABG Base Excess ABG Hemoglobin Oxyhemoglobin Sodium Potassium Chloride Carbon Dioxide BUN Creatinine Glucose POC Glucose 139 H 140 H 129 H Lactic Acid Calcium Phosphorus Magnesium Direct Bilirubin AST ALT Alkaline Phosphatase Lactate Dehydrogenase Troponin T C-Reactive Protein Total Protein Albumin Prealbumin Triglycerides Cholesterol LDL Cholesterol Direct HDL Cholesterol Urine pH Urine WBC (Auto) Urine Creatinine Urine Total Protein Fluid Total Protein Vancomycin Trough Rheumatoid Factor Complement C4 Miscellaneous Test Crossmatch 12/10/16 12/10/16 12/10/16 05:00 05:00 06:54 WBC 15.7 H RBC 2.87 L Hgb 8.2 L Hct 24.4 L MCV MCH MCHC RDW 17.2 H Plt Count Lymph % (Auto) [place] % (Auto) 8.3 H Lymph # [place] # 1.3 H Baso # Seg Neutrophils % 72.8 H Seg Neuts % (Manual) Lymphocytes % (Manual) Monocytes % (Manual) Eosinophils % (Manual) Basophils % (Manual) Nucleated RBC % Seg Neutrophils # 11.4 H Seg Neutrophils # Man Lymphocytes # (Manual) Monocytes # (Manual) Eosinophils # (Manual) Basophils # (Manual) PT INR Fibrinogen dRVVT Confirm Interp Factor V Activity POC ABG pH POC ABG pCO2 POC ABG pO2 ABG pO2 ABG HCO3 ABG Base Excess ABG Hemoglobin Oxyhemoglobin Sodium Potassium Chloride Carbon Dioxide BUN 64 H Creatinine 1.4 H Glucose 134 H POC Glucose 154 H Lactic Acid Calcium Phosphorus Magnesium Direct Bilirubin AST ALT Alkaline Phosphatase Lactate Dehydrogenase Troponin T C-Reactive Protein Total Protein Albumin Prealbumin Triglycerides Cholesterol LDL Cholesterol Direct HDL Cholesterol Urine pH Urine WBC (Auto) Urine Creatinine Urine Total Protein Fluid Total Protein Vancomycin Trough Rheumatoid Factor Complement C4 Miscellaneous Test Crossmatch 12/10/16 12/10/16 12/10/16 11:58 17:29 23:52 WBC RBC Hgb Hct MCV MCH MCHC RDW Plt Count Lymph % (Auto) [place] % (Auto) Lymph # [place] # Baso # Seg Neutrophils % Seg Neuts % (Manual) Lymphocytes % (Manual) Monocytes % (Manual) Eosinophils % (Manual) Basophils % (Manual) Nucleated RBC % Seg Neutrophils # Seg Neutrophils # Man Lymphocytes # (Manual) Monocytes # (Manual) Eosinophils # (Manual) Basophils # (Manual) PT INR Fibrinogen dRVVT Confirm Interp Factor V Activity POC ABG pH POC ABG pCO2 POC ABG pO2 ABG pO2 ABG HCO3 ABG Base Excess ABG Hemoglobin Oxyhemoglobin Sodium Potassium Chloride Carbon Dioxide BUN Creatinine Glucose POC Glucose 144 H 163 H 125 H Lactic Acid Calcium Phosphorus Magnesium Direct Bilirubin AST ALT Alkaline Phosphatase Lactate Dehydrogenase Troponin T C-Reactive Protein Total Protein Albumin Prealbumin Triglycerides Cholesterol LDL Cholesterol Direct HDL Cholesterol Urine pH Urine WBC (Auto) Urine Creatinine Urine Total Protein Fluid Total Protein Vancomycin Trough Rheumatoid Factor Complement C4 Miscellaneous Test Crossmatch 12/11/16 12/11/16 12/11/16 05:38 06:30 06:30 WBC 14.4 H RBC 2.76 L Hgb 7.7 L Hct 23.4 L MCV MCH MCHC RDW 17.2 H Plt Count Lymph % (Auto) [place] % (Auto) 8.8 H Lymph # [place] # 1.3 H Baso # Seg Neutrophils % 72.5 H Seg Neuts % (Manual) Lymphocytes % (Manual) Monocytes % (Manual) Eosinophils % (Manual) Basophils % (Manual) Nucleated RBC % Seg Neutrophils # 10.5 H Seg Neutrophils # Man Lymphocytes # (Manual) Monocytes # (Manual) Eosinophils # (Manual) Basophils # (Manual) PT INR Fibrinogen dRVVT Confirm Interp Factor V Activity POC ABG pH POC ABG pCO2 POC ABG pO2 ABG pO2 ABG HCO3 ABG Base Excess ABG Hemoglobin Oxyhemoglobin Sodium Potassium Chloride Carbon Dioxide BUN 43 H Creatinine Glucose 124 H POC Glucose 141 H Lactic Acid Calcium 8.3 L Phosphorus Magnesium 1.60 L Direct Bilirubin AST ALT Alkaline Phosphatase Lactate Dehydrogenase Troponin T C-Reactive Protein Total Protein Albumin Prealbumin Triglycerides Cholesterol LDL Cholesterol Direct HDL Cholesterol Urine pH Urine WBC (Auto) Urine Creatinine Urine Total Protein Fluid Total Protein Vancomycin Trough Rheumatoid Factor Complement C4 Miscellaneous Test Crossmatch 12/11/16 12/11/16 12/11/16 11:15 17:59 23:48 WBC RBC Hgb Hct MCV MCH MCHC RDW Plt Count Lymph % (Auto) [place] % (Auto) Lymph # [place] # Baso # Seg Neutrophils % Seg Neuts % (Manual) Lymphocytes % (Manual) Monocytes % (Manual) Eosinophils % (Manual) Basophils % (Manual) Nucleated RBC % Seg Neutrophils # Seg Neutrophils # Man Lymphocytes # (Manual) Monocytes # (Manual) Eosinophils # (Manual) Basophils # (Manual) PT INR Fibrinogen dRVVT Confirm Interp Factor V Activity POC ABG pH POC ABG pCO2 POC ABG pO2 ABG pO2 ABG HCO3 ABG Base Excess ABG Hemoglobin Oxyhemoglobin Sodium Potassium Chloride Carbon Dioxide BUN Creatinine Glucose POC Glucose 188 H 106 H 119 H Lactic Acid Calcium Phosphorus Magnesium Direct Bilirubin AST ALT Alkaline Phosphatase Lactate Dehydrogenase Troponin T C-Reactive Protein Total Protein Albumin Prealbumin Triglycerides Cholesterol LDL Cholesterol Direct HDL Cholesterol Urine pH Urine WBC (Auto) Urine Creatinine Urine Total Protein Fluid Total Protein Vancomycin Trough Rheumatoid Factor Complement C4 Miscellaneous Test Crossmatch 12/12/16 12/12/16 12/12/16 05:00 06:01 12:20 WBC 16.7 H RBC 2.87 L Hgb 8.0 L Hct 24.2 L MCV MCH MCHC RDW 17.6 H Plt Count Lymph % (Auto) [place] % (Auto) Lymph # [place] # 1.2 H Baso # Seg Neutrophils % 75.3 H Seg Neuts % (Manual) Lymphocytes % (Manual) Monocytes % (Manual) Eosinophils % (Manual) Basophils % (Manual) Nucleated RBC % Seg Neutrophils # 12.6 H Seg Neutrophils # Man Lymphocytes # (Manual) Monocytes # (Manual) Eosinophils # (Manual) Basophils # (Manual) PT INR Fibrinogen dRVVT Confirm Interp Factor V Activity POC ABG pH POC ABG pCO2 POC ABG pO2 ABG pO2 ABG HCO3 ABG Base Excess ABG Hemoglobin Oxyhemoglobin Sodium Potassium Chloride Carbon Dioxide BUN Creatinine Glucose POC Glucose 134 H 149 H Lactic Acid Calcium Phosphorus Magnesium Direct Bilirubin AST ALT Alkaline Phosphatase Lactate Dehydrogenase Troponin T C-Reactive Protein Total Protein Albumin Prealbumin Triglycerides Cholesterol LDL Cholesterol Direct HDL Cholesterol Urine pH Urine WBC (Auto) Urine Creatinine Urine Total Protein Fluid Total Protein Vancomycin Trough Rheumatoid Factor Complement C4 Miscellaneous Test Crossmatch 12/12/16 12/12/16 12/12/16 17:38 23:01 Unknown WBC RBC Hgb Hct MCV MCH MCHC RDW Plt Count Lymph % (Auto) [place] % (Auto) Lymph # [place] # Baso # Seg Neutrophils % Seg Neuts % (Manual) Lymphocytes % (Manual) Monocytes % (Manual) Eosinophils % (Manual) Basophils % (Manual) Nucleated RBC % Seg Neutrophils # Seg Neutrophils # Man Lymphocytes # (Manual) Monocytes # (Manual) Eosinophils # (Manual) Basophils # (Manual) PT INR Fibrinogen dRVVT Confirm Interp Factor V Activity POC ABG pH POC ABG pCO2 POC ABG pO2 ABG pO2 ABG HCO3 ABG Base Excess ABG Hemoglobin Oxyhemoglobin Sodium Potassium Chloride Carbon Dioxide BUN 60 H Creatinine 1.3 H Glucose 126 H POC Glucose 127 H 144 H Lactic Acid Calcium Phosphorus Magnesium Direct Bilirubin AST ALT Alkaline Phosphatase Lactate Dehydrogenase Troponin T C-Reactive Protein Total Protein Albumin Prealbumin Triglycerides Cholesterol LDL Cholesterol Direct HDL Cholesterol Urine pH Urine WBC (Auto) Urine Creatinine Urine Total Protein Fluid Total Protein Vancomycin Trough Rheumatoid Factor Complement C4 Miscellaneous Test Crossmatch 12/13/16 12/13/16 12/13/16 04:00 04:00 05:19 WBC 18.7 H RBC 2.89 L Hgb 8.3 L Hct 24.6 L MCV MCH MCHC RDW 17.5 H Plt Count Lymph % (Auto) [place] % (Auto) Lymph # [place] # 1.3 H Baso # Seg Neutrophils % 71.5 H Seg Neuts % (Manual) Lymphocytes % (Manual) Monocytes % (Manual) Eosinophils % (Manual) Basophils % (Manual) Nucleated RBC % Seg Neutrophils # 13.4 H Seg Neutrophils # Man Lymphocytes # (Manual) Monocytes # (Manual) Eosinophils # (Manual) Basophils # (Manual) PT INR Fibrinogen dRVVT Confirm Interp Factor V Activity POC ABG pH POC ABG pCO2 POC ABG pO2 ABG pO2 ABG HCO3 ABG Base Excess ABG Hemoglobin Oxyhemoglobin Sodium Potassium Chloride Carbon Dioxide BUN 73 H Creatinine 1.5 H Glucose 141 H POC Glucose 171 H Lactic Acid Calcium Phosphorus Magnesium Direct Bilirubin AST ALT Alkaline Phosphatase Lactate Dehydrogenase Troponin T C-Reactive Protein Total Protein Albumin Prealbumin Triglycerides Cholesterol LDL Cholesterol Direct HDL Cholesterol Urine pH Urine WBC (Auto) Urine Creatinine Urine Total Protein Fluid Total Protein Vancomycin Trough Rheumatoid Factor Complement C4 Miscellaneous Test Crossmatch 12/13/16 12/13/16 12/14/16 12:28 16:48 00:01 WBC RBC Hgb Hct MCV MCH MCHC RDW Plt Count Lymph % (Auto) [place] % (Auto) Lymph # [place] # Baso # Seg Neutrophils % Seg Neuts % (Manual) Lymphocytes % (Manual) Monocytes % (Manual) Eosinophils % (Manual) Basophils % (Manual) Nucleated RBC % Seg Neutrophils # Seg Neutrophils # Man Lymphocytes # (Manual) Monocytes # (Manual) Eosinophils # (Manual) Basophils # (Manual) PT INR Fibrinogen dRVVT Confirm Interp Factor V Activity POC ABG pH POC ABG pCO2 POC ABG pO2 ABG pO2 ABG HCO3 ABG Base Excess ABG Hemoglobin Oxyhemoglobin Sodium Potassium Chloride Carbon Dioxide BUN Creatinine Glucose POC Glucose 206 H 173 H 139 H Lactic Acid Calcium Phosphorus Magnesium Direct Bilirubin AST ALT Alkaline Phosphatase Lactate Dehydrogenase Troponin T C-Reactive Protein Total Protein Albumin Prealbumin Triglycerides Cholesterol LDL Cholesterol Direct HDL Cholesterol Urine pH Urine WBC (Auto) Urine Creatinine Urine Total Protein Fluid Total Protein Vancomycin Trough Rheumatoid Factor Complement C4 Miscellaneous Test Crossmatch 12/14/16 12/14/16 12/14/16 05:16 06:10 11:17 WBC RBC Hgb Hct MCV MCH MCHC RDW Plt Count Lymph % (Auto) [place] % (Auto) Lymph # [place] # Baso # Seg Neutrophils % Seg Neuts % (Manual) Lymphocytes % (Manual) Monocytes % (Manual) Eosinophils % (Manual) Basophils % (Manual) Nucleated RBC % Seg Neutrophils # Seg Neutrophils # Man Lymphocytes # (Manual) Monocytes # (Manual) Eosinophils # (Manual) Basophils # (Manual) PT INR Fibrinogen dRVVT Confirm Interp Factor V Activity POC ABG pH POC ABG pCO2 POC ABG pO2 ABG pO2 ABG HCO3 ABG Base Excess ABG Hemoglobin Oxyhemoglobin Sodium Potassium Chloride Carbon Dioxide BUN 57 H Creatinine 1.4 H Glucose 135 H POC Glucose 158 H 137 H Lactic Acid Calcium Phosphorus Magnesium Direct Bilirubin AST ALT Alkaline Phosphatase Lactate Dehydrogenase Troponin T C-Reactive Protein Total Protein Albumin Prealbumin Triglycerides Cholesterol LDL Cholesterol Direct HDL Cholesterol Urine pH Urine WBC (Auto) Urine Creatinine Urine Total Protein Fluid Total Protein Vancomycin Trough Rheumatoid Factor Complement C4 Miscellaneous Test Crossmatch 12/14/16 12/14/16 12/15/16 17:52 23:27 04:00 WBC RBC Hgb Hct MCV MCH MCHC RDW Plt Count Lymph % (Auto) [place] % (Auto) Lymph # [place] # Baso # Seg Neutrophils % Seg Neuts % (Manual) Lymphocytes % (Manual) Monocytes % (Manual) Eosinophils % (Manual) Basophils % (Manual) Nucleated RBC % Seg Neutrophils # Seg Neutrophils # Man Lymphocytes # (Manual) Monocytes # (Manual) Eosinophils # (Manual) Basophils # (Manual) PT INR Fibrinogen dRVVT Confirm Interp Factor V Activity POC ABG pH POC ABG pCO2 POC ABG pO2 ABG pO2 ABG HCO3 ABG Base Excess ABG Hemoglobin Oxyhemoglobin Sodium Potassium Chloride 97.9 L Carbon Dioxide BUN 75 H Creatinine 1.6 H Glucose 122 H POC Glucose 149 H 163 H Lactic Acid Calcium Phosphorus 5.20 H Magnesium Direct Bilirubin AST ALT Alkaline Phosphatase Lactate Dehydrogenase Troponin T C-Reactive Protein Total Protein Albumin Prealbumin Triglycerides Cholesterol LDL Cholesterol Direct HDL Cholesterol Urine pH Urine WBC (Auto) Urine Creatinine Urine Total Protein Fluid Total Protein Vancomycin Trough Rheumatoid Factor Complement C4 Miscellaneous Test Crossmatch 12/15/16 12/15/16 12/15/16 05:50 11:24 17:01 WBC RBC Hgb Hct MCV MCH MCHC RDW Plt Count Lymph % (Auto) [place] % (Auto) Lymph # [place] # Baso # Seg Neutrophils % Seg Neuts % (Manual) Lymphocytes % (Manual) Monocytes % (Manual) Eosinophils % (Manual) Basophils % (Manual) Nucleated RBC % Seg Neutrophils # Seg Neutrophils # Man Lymphocytes # (Manual) Monocytes # (Manual) Eosinophils # (Manual) Basophils # (Manual) PT INR Fibrinogen dRVVT Confirm Interp Factor V Activity POC ABG pH POC ABG pCO2 POC ABG pO2 ABG pO2 ABG HCO3 ABG Base Excess ABG Hemoglobin Oxyhemoglobin Sodium Potassium Chloride Carbon Dioxide BUN Creatinine Glucose POC Glucose 150 H 146 H 167 H Lactic Acid Calcium Phosphorus Magnesium Direct Bilirubin AST ALT Alkaline Phosphatase Lactate Dehydrogenase Troponin T C-Reactive Protein Total Protein Albumin Prealbumin Triglycerides Cholesterol LDL Cholesterol Direct HDL Cholesterol Urine pH Urine WBC (Auto) Urine Creatinine Urine Total Protein Fluid Total Protein Vancomycin Trough Rheumatoid Factor Complement C4 Miscellaneous Test Crossmatch 12/15/16 12/16/16 12/16/16 23:34 05:25 11:24 WBC RBC Hgb Hct MCV MCH MCHC RDW Plt Count Lymph % (Auto) [place] % (Auto) Lymph # [place] # Baso # Seg Neutrophils % Seg Neuts % (Manual) Lymphocytes % (Manual) Monocytes % (Manual) Eosinophils % (Manual) Basophils % (Manual) Nucleated RBC % Seg Neutrophils # Seg Neutrophils # Man Lymphocytes # (Manual) Monocytes # (Manual) Eosinophils # (Manual) Basophils # (Manual) PT INR Fibrinogen dRVVT Confirm Interp Factor V Activity POC ABG pH POC ABG pCO2 POC ABG pO2 ABG pO2 ABG HCO3 ABG Base Excess ABG Hemoglobin Oxyhemoglobin Sodium Potassium Chloride Carbon Dioxide BUN Creatinine Glucose POC Glucose 127 H 139 H 165 H Lactic Acid Calcium Phosphorus Magnesium Direct Bilirubin AST ALT Alkaline Phosphatase Lactate Dehydrogenase Troponin T C-Reactive Protein Total Protein Albumin Prealbumin Triglycerides Cholesterol LDL Cholesterol Direct HDL Cholesterol Urine pH Urine WBC (Auto) Urine Creatinine Urine Total Protein Fluid Total Protein Vancomycin Trough Rheumatoid Factor Complement C4 Miscellaneous Test Crossmatch 12/16/16 12/16/16 12/16/16 15:30 16:25 17:31 WBC 17.8 H RBC 2.38 L Hgb 6.4 L Hct 20.3 L MCV MCH 27 L MCHC RDW 17.4 H Plt Count Lymph % (Auto) [place] % (Auto) Lymph # [place] # Baso # Seg Neutrophils % Seg Neuts % (Manual) Lymphocytes % (Manual) Monocytes % (Manual) 10.0 H Eosinophils % (Manual) Basophils % (Manual) Nucleated RBC % Seg Neutrophils # Seg Neutrophils # Man 8.5 H Lymphocytes # (Manual) Monocytes # (Manual) 1.8 H Eosinophils # (Manual) Basophils # (Manual) PT INR Fibrinogen dRVVT Confirm Interp Factor V Activity POC ABG pH POC ABG pCO2 POC ABG pO2 ABG pO2 ABG HCO3 ABG Base Excess ABG Hemoglobin Oxyhemoglobin Sodium Potassium Chloride Carbon Dioxide BUN Creatinine Glucose POC Glucose 176 H Lactic Acid Calcium Phosphorus Magnesium Direct Bilirubin AST ALT Alkaline Phosphatase Lactate Dehydrogenase Troponin T C-Reactive Protein Total Protein Albumin Prealbumin Triglycerides Cholesterol LDL Cholesterol Direct HDL Cholesterol Urine pH Urine WBC (Auto) Urine Creatinine Urine Total Protein Fluid Total Protein Vancomycin Trough Rheumatoid Factor Complement C4 Miscellaneous Test Crossmatch See Detail 12/17/16 12/17/16 12/17/16 00:14 04:00 05:00 WBC 20.0 H RBC 2.99 L Hgb 8.5 L Hct 25.7 L MCV MCH MCHC RDW 17.2 H Plt Count Lymph % (Auto) [place] % (Auto) Lymph # [place] # Baso # Seg Neutrophils % Seg Neuts % (Manual) Lymphocytes % (Manual) Monocytes % (Manual) Eosinophils % (Manual) Basophils % (Manual) Nucleated RBC % Seg Neutrophils # Seg Neutrophils # Man Lymphocytes # (Manual) Monocytes # (Manual) Eosinophils # (Manual) Basophils # (Manual) PT INR Fibrinogen dRVVT Confirm Interp Factor V Activity POC ABG pH POC ABG pCO2 POC ABG pO2 ABG pO2 ABG HCO3 ABG Base Excess ABG Hemoglobin Oxyhemoglobin Sodium Potassium Chloride 97.7 L Carbon Dioxide BUN 73 H Creatinine 1.7 H Glucose 136 H POC Glucose 148 H Lactic Acid Calcium Phosphorus 2.20 L Magnesium 2.70 H Direct Bilirubin AST ALT Alkaline Phosphatase Lactate Dehydrogenase Troponin T C-Reactive Protein Total Protein Albumin Prealbumin Triglycerides Cholesterol LDL Cholesterol Direct HDL Cholesterol Urine pH Urine WBC (Auto) Urine Creatinine Urine Total Protein Fluid Total Protein Vancomycin Trough Rheumatoid Factor Complement C4 Miscellaneous Test Crossmatch 12/17/16 12/17/16 12/17/16 05:39 12:50 16:32 WBC RBC Hgb Hct MCV MCH MCHC RDW Plt Count Lymph % (Auto) [place] % (Auto) Lymph # [place] # Baso # Seg Neutrophils % Seg Neuts % (Manual) Lymphocytes % (Manual) Monocytes % (Manual) Eosinophils % (Manual) Basophils % (Manual) Nucleated RBC % Seg Neutrophils # Seg Neutrophils # Man Lymphocytes # (Manual) Monocytes # (Manual) Eosinophils # (Manual) Basophils # (Manual) PT INR Fibrinogen dRVVT Confirm Interp Factor V Activity POC ABG pH POC ABG pCO2 POC ABG pO2 ABG pO2 ABG HCO3 ABG Base Excess ABG Hemoglobin Oxyhemoglobin Sodium Potassium Chloride Carbon Dioxide BUN Creatinine Glucose POC Glucose 162 H 146 H 169 H Lactic Acid Calcium Phosphorus Magnesium Direct Bilirubin AST ALT Alkaline Phosphatase Lactate Dehydrogenase Troponin T C-Reactive Protein Total Protein Albumin Prealbumin Triglycerides Cholesterol LDL Cholesterol Direct HDL Cholesterol Urine pH Urine WBC (Auto) Urine Creatinine Urine Total Protein Fluid Total Protein Vancomycin Trough Rheumatoid Factor Complement C4 Miscellaneous Test Crossmatch 12/17/16 12/18/16 12/18/16 23:57 05:00 05:32 WBC RBC Hgb Hct MCV MCH MCHC RDW Plt Count Lymph % (Auto) [place] % (Auto) Lymph # [place] # Baso # Seg Neutrophils % Seg Neuts % (Manual) Lymphocytes % (Manual) Monocytes % (Manual) Eosinophils % (Manual) Basophils % (Manual) Nucleated RBC % Seg Neutrophils # Seg Neutrophils # Man Lymphocytes # (Manual) Monocytes # (Manual) Eosinophils # (Manual) Basophils # (Manual) PT INR Fibrinogen dRVVT Confirm Interp Factor V Activity POC ABG pH POC ABG pCO2 POC ABG pO2 ABG pO2 ABG HCO3 ABG Base Excess ABG Hemoglobin Oxyhemoglobin Sodium Potassium Chloride 97.0 L Carbon Dioxide BUN 63 H Creatinine 1.4 H Glucose 174 H POC Glucose 145 H 201 H Lactic Acid Calcium Phosphorus 1.70 L D Magnesium Direct Bilirubin AST ALT Alkaline Phosphatase 257 H Lactate Dehydrogenase Troponin T C-Reactive Protein Total Protein 5.9 L Albumin 1.8 L Prealbumin Triglycerides Cholesterol LDL Cholesterol Direct HDL Cholesterol Urine pH Urine WBC (Auto) Urine Creatinine Urine Total Protein Fluid Total Protein Vancomycin Trough Rheumatoid Factor Complement C4 Miscellaneous Test Crossmatch 10/12/18/16 12/18/16 11:43 16:52 23:52 WBC RBC Hgb Hct MCV MCH MCHC RDW Plt Count Lymph % (Auto) [place] % (Auto) Lymph # [place] # Baso # Seg Neutrophils % Seg Neuts % (Manual) Lymphocytes % (Manual) Monocytes % (Manual) Eosinophils % (Manual) Basophils % (Manual) Nucleated RBC % Seg Neutrophils # Seg Neutrophils # Man Lymphocytes # (Manual) Monocytes # (Manual) Eosinophils # (Manual) Basophils # (Manual) PT INR Fibrinogen dRVVT Confirm Interp Factor V Activity POC ABG pH POC ABG pCO2 POC ABG pO2 ABG pO2 ABG HCO3 ABG Base Excess ABG Hemoglobin Oxyhemoglobin Sodium Potassium Chloride Carbon Dioxide BUN Creatinine Glucose POC Glucose 177 H 110 H 162 H Lactic Acid Calcium Phosphorus Magnesium Direct Bilirubin AST ALT Alkaline Phosphatase Lactate Dehydrogenase Troponin T C-Reactive Protein Total Protein Albumin Prealbumin Triglycerides Cholesterol LDL Cholesterol Direct HDL Cholesterol Urine pH Urine WBC (Auto) Urine Creatinine Urine Total Protein Fluid Total Protein Vancomycin Trough Rheumatoid Factor Complement C4 Miscellaneous Test Crossmatch 12/19/16 12/19/16 12/19/16 05:02 05:24 09:30 WBC 20.1 H RBC 2.73 L Hgb 7.6 L Hct 23.6 L MCV MCH MCHC RDW 17.6 H Plt Count Lymph % (Auto) [place] % (Auto) Lymph # [place] # Baso # Seg Neutrophils % Seg Neuts % (Manual) Lymphocytes % (Manual) 13.0 L Monocytes % (Manual) Eosinophils % (Manual) Basophils % (Manual) Nucleated RBC % 1.0 H Seg Neutrophils # Seg Neutrophils # Man 12.9 H Lymphocytes # (Manual) Monocytes # (Manual) 1.4 H Eosinophils # (Manual) Basophils # (Manual) 0.2 H PT INR Fibrinogen dRVVT Confirm Interp Factor V Activity POC ABG pH POC ABG pCO2 POC ABG pO2 ABG pO2 ABG HCO3 ABG Base Excess ABG Hemoglobin Oxyhemoglobin Sodium Potassium Chloride 97.8 L Carbon Dioxide BUN 84 H Creatinine 1.6 H Glucose 133 H POC Glucose 134 H Lactic Acid Calcium Phosphorus Magnesium Direct Bilirubin AST ALT Alkaline Phosphatase Lactate Dehydrogenase Troponin T C-Reactive Protein Total Protein Albumin Prealbumin Triglycerides Cholesterol LDL Cholesterol Direct HDL Cholesterol Urine pH Urine WBC (Auto) Urine Creatinine Urine Total Protein Fluid Total Protein Vancomycin Trough Rheumatoid Factor Complement C4 Miscellaneous Test Crossmatch 12/19/16 12/19/16 12/19/16 09:36 11:12 18:29 WBC RBC Hgb Hct MCV MCH MCHC RDW Plt Count Lymph % (Auto) [place] % (Auto) Lymph # [place] # Baso # Seg Neutrophils % Seg Neuts % (Manual) Lymphocytes % (Manual) Monocytes % (Manual) Eosinophils % (Manual) Basophils % (Manual) Nucleated RBC % Seg Neutrophils # Seg Neutrophils # Man Lymphocytes # (Manual) Monocytes # (Manual) Eosinophils # (Manual) Basophils # (Manual) PT INR Fibrinogen dRVVT Confirm Interp Factor V Activity POC ABG pH 7.503 H POC ABG pCO2 30.1 L POC ABG pO2 ABG pO2 ABG HCO3 ABG Base Excess ABG Hemoglobin Oxyhemoglobin Sodium Potassium Chloride Carbon Dioxide BUN Creatinine Glucose POC Glucose 138 H 156 H Lactic Acid Calcium Phosphorus Magnesium Direct Bilirubin AST ALT Alkaline Phosphatase Lactate Dehydrogenase Troponin T C-Reactive Protein Total Protein Albumin Prealbumin Triglycerides Cholesterol LDL Cholesterol Direct HDL Cholesterol Urine pH Urine WBC (Auto) Urine Creatinine Urine Total Protein Fluid Total Protein Vancomycin Trough Rheumatoid Factor Complement C4 Miscellaneous Test Crossmatch 12/20/16 12/20/16 12/20/16 00:03 06:17 07:07 WBC RBC Hgb Hct MCV MCH MCHC RDW Plt Count Lymph % (Auto) [place] % (Auto) Lymph # [place] # Baso # Seg Neutrophils % Seg Neuts % (Manual) Lymphocytes % (Manual) Monocytes % (Manual) Eosinophils % (Manual) Basophils % (Manual) Nucleated RBC % Seg Neutrophils # Seg Neutrophils # Man Lymphocytes # (Manual) Monocytes # (Manual) Eosinophils # (Manual) Basophils # (Manual) PT INR Fibrinogen dRVVT Confirm Interp Factor V Activity POC ABG pH POC ABG pCO2 POC ABG pO2 ABG pO2 ABG HCO3 ABG Base Excess ABG Hemoglobin Oxyhemoglobin Sodium Potassium Chloride 97.1 L Carbon Dioxide 20 L BUN 97 H Creatinine 1.8 H Glucose 153 H POC Glucose 152 H 175 H Lactic Acid Calcium Phosphorus Magnesium Direct Bilirubin AST ALT Alkaline Phosphatase Lactate Dehydrogenase Troponin T C-Reactive Protein Total Protein Albumin Prealbumin Triglycerides Cholesterol LDL Cholesterol Direct HDL Cholesterol Urine pH Urine WBC (Auto) Urine Creatinine Urine Total Protein Fluid Total Protein Vancomycin Trough Rheumatoid Factor Complement C4 Miscellaneous Test Crossmatch 12/20/16 12/20/16 12/20/16 12:00 17:42 23:53 WBC RBC Hgb Hct MCV MCH MCHC RDW Plt Count Lymph % (Auto) [place] % (Auto) Lymph # [place] # Baso # Seg Neutrophils % Seg Neuts % (Manual) Lymphocytes % (Manual) Monocytes % (Manual) Eosinophils % (Manual) Basophils % (Manual) Nucleated RBC % Seg Neutrophils # Seg Neutrophils # Man Lymphocytes # (Manual) Monocytes # (Manual) Eosinophils # (Manual) Basophils # (Manual) PT INR Fibrinogen dRVVT Confirm Interp Factor V Activity POC ABG pH POC ABG pCO2 POC ABG pO2 ABG pO2 ABG HCO3 ABG Base Excess ABG Hemoglobin Oxyhemoglobin Sodium Potassium Chloride Carbon Dioxide BUN Creatinine Glucose POC Glucose 141 H 156 H 132 H Lactic Acid Calcium Phosphorus Magnesium Direct Bilirubin AST ALT Alkaline Phosphatase Lactate Dehydrogenase Troponin T C-Reactive Protein Total Protein Albumin Prealbumin Triglycerides Cholesterol LDL Cholesterol Direct HDL Cholesterol Urine pH Urine WBC (Auto) Urine Creatinine Urine Total Protein Fluid Total Protein Vancomycin Trough Rheumatoid Factor Complement C4 Miscellaneous Test Crossmatch 12/21/16 12/21/16 12/21/16 05:49 08:50 12:19 WBC RBC Hgb Hct MCV MCH MCHC RDW Plt Count Lymph % (Auto) [place] % (Auto) Lymph # [place] # Baso # Seg Neutrophils % Seg Neuts % (Manual) Lymphocytes % (Manual) Monocytes % (Manual) Eosinophils % (Manual) Basophils % (Manual) Nucleated RBC % Seg Neutrophils # Seg Neutrophils # Man Lymphocytes # (Manual) Monocytes # (Manual) Eosinophils # (Manual) Basophils # (Manual) PT INR Fibrinogen dRVVT Confirm Interp Factor V Activity POC ABG pH POC ABG pCO2 POC ABG pO2 ABG pO2 ABG HCO3 ABG Base Excess ABG Hemoglobin Oxyhemoglobin Sodium Potassium 5.2 H D Chloride Carbon Dioxide BUN 63 H Creatinine Glucose 122 H POC Glucose 132 H 136 H Lactic Acid Calcium 8.3 L Phosphorus Magnesium Direct Bilirubin AST ALT Alkaline Phosphatase Lactate Dehydrogenase Troponin T C-Reactive Protein Total Protein Albumin Prealbumin Triglycerides Cholesterol LDL Cholesterol Direct HDL Cholesterol Urine pH Urine WBC (Auto) Urine Creatinine Urine Total Protein Fluid Total Protein Vancomycin Trough Rheumatoid Factor Complement C4 Miscellaneous Test Crossmatch 12/21/16 12/21/16 12/22/16 17:22 23:58 05:49 WBC RBC Hgb Hct MCV MCH MCHC RDW Plt Count Lymph % (Auto) [place] % (Auto) Lymph # [place] # Baso # Seg Neutrophils % Seg Neuts % (Manual) Lymphocytes % (Manual) Monocytes % (Manual) Eosinophils % (Manual) Basophils % (Manual) Nucleated RBC % Seg Neutrophils # Seg Neutrophils # Man Lymphocytes # (Manual) Monocytes # (Manual) Eosinophils # (Manual) Basophils # (Manual) PT INR Fibrinogen dRVVT Confirm Interp Factor V Activity POC ABG pH POC ABG pCO2 POC ABG pO2 ABG pO2 ABG HCO3 ABG Base Excess ABG Hemoglobin Oxyhemoglobin Sodium Potassium Chloride Carbon Dioxide BUN Creatinine Glucose POC Glucose 135 H 149 H 140 H Lactic Acid Calcium Phosphorus Magnesium Direct Bilirubin AST ALT Alkaline Phosphatase Lactate Dehydrogenase Troponin T C-Reactive Protein Total Protein Albumin Prealbumin Triglycerides Cholesterol LDL Cholesterol Direct HDL Cholesterol Urine pH Urine WBC (Auto) Urine Creatinine Urine Total Protein Fluid Total Protein Vancomycin Trough Rheumatoid Factor Complement C4 Miscellaneous Test Crossmatch 12/22/16 12/22/16 12/22/16 06:10 11:17 17:31 WBC RBC Hgb Hct MCV MCH MCHC RDW Plt Count Lymph % (Auto) [place] % (Auto) Lymph # [place] # Baso # Seg Neutrophils % Seg Neuts % (Manual) Lymphocytes % (Manual) Monocytes % (Manual) Eosinophils % (Manual) Basophils % (Manual) Nucleated RBC % Seg Neutrophils # Seg Neutrophils # Man Lymphocytes # (Manual) Monocytes # (Manual) Eosinophils # (Manual) Basophils # (Manual) PT INR Fibrinogen dRVVT Confirm Interp Factor V Activity POC ABG pH POC ABG pCO2 POC ABG pO2 ABG pO2 ABG HCO3 ABG Base Excess ABG Hemoglobin Oxyhemoglobin Sodium Potassium Chloride Carbon Dioxide BUN 76 H Creatinine 1.5 H Glucose 241 H POC Glucose 193 H 148 H Lactic Acid Calcium Phosphorus Magnesium Direct Bilirubin AST ALT Alkaline Phosphatase Lactate Dehydrogenase Troponin T C-Reactive Protein Total Protein Albumin Prealbumin Triglycerides Cholesterol LDL Cholesterol Direct HDL Cholesterol Urine pH Urine WBC (Auto) Urine Creatinine Urine Total Protein Fluid Total Protein Vancomycin Trough Rheumatoid Factor Complement C4 Miscellaneous Test Crossmatch 12/22/16 12/23/16 12/23/16 23:58 05:00 05:26 WBC RBC Hgb Hct MCV MCH MCHC RDW Plt Count Lymph % (Auto) [place] % (Auto) Lymph # [place] # Baso # Seg Neutrophils % Seg Neuts % (Manual) Lymphocytes % (Manual) Monocytes % (Manual) Eosinophils % (Manual) Basophils % (Manual) Nucleated RBC % Seg Neutrophils # Seg Neutrophils # Man Lymphocytes # (Manual) Monocytes # (Manual) Eosinophils # (Manual) Basophils # (Manual) PT INR Fibrinogen dRVVT Confirm Interp Factor V Activity POC ABG pH POC ABG pCO2 POC ABG pO2 ABG pO2 ABG HCO3 ABG Base Excess ABG Hemoglobin Oxyhemoglobin Sodium Potassium Chloride Carbon Dioxide BUN 49 H Creatinine Glucose 143 H POC Glucose 165 H 154 H Lactic Acid Calcium 8.2 L Phosphorus Magnesium 1.60 L Direct Bilirubin AST ALT Alkaline Phosphatase Lactate Dehydrogenase Troponin T C-Reactive Protein Total Protein Albumin Prealbumin Triglycerides Cholesterol LDL Cholesterol Direct HDL Cholesterol Urine pH Urine WBC (Auto) Urine Creatinine Urine Total Protein Fluid Total Protein Vancomycin Trough Rheumatoid Factor Complement C4 Miscellaneous Test Crossmatch 12/23/16 12/23/16 12/24/16 12:35 17:01 00:01 WBC RBC Hgb Hct MCV MCH MCHC RDW Plt Count Lymph % (Auto) [place] % (Auto) Lymph # [place] # Baso # Seg Neutrophils % Seg Neuts % (Manual) Lymphocytes % (Manual) Monocytes % (Manual) Eosinophils % (Manual) Basophils % (Manual) Nucleated RBC % Seg Neutrophils # Seg Neutrophils # Man Lymphocytes # (Manual) Monocytes # (Manual) Eosinophils # (Manual) Basophils # (Manual) PT INR Fibrinogen dRVVT Confirm Interp Factor V Activity POC ABG pH POC ABG pCO2 POC ABG pO2 ABG pO2 ABG HCO3 ABG Base Excess ABG Hemoglobin Oxyhemoglobin Sodium Potassium Chloride Carbon Dioxide BUN Creatinine Glucose POC Glucose 164 H 149 H 135 H Lactic Acid Calcium Phosphorus Magnesium Direct Bilirubin AST ALT Alkaline Phosphatase Lactate Dehydrogenase Troponin T C-Reactive Protein Total Protein Albumin Prealbumin Triglycerides Cholesterol LDL Cholesterol Direct HDL Cholesterol Urine pH Urine WBC (Auto) Urine Creatinine Urine Total Protein Fluid Total Protein Vancomycin Trough Rheumatoid Factor Complement C4 Miscellaneous Test Crossmatch 12/24/16 12/24/16 12/24/16 05:41 07:01 11:38 WBC RBC Hgb Hct MCV MCH MCHC RDW Plt Count Lymph % (Auto) [place] % (Auto) Lymph # [place] # Baso # Seg Neutrophils % Seg Neuts % (Manual) Lymphocytes % (Manual) Monocytes % (Manual) Eosinophils % (Manual) Basophils % (Manual) Nucleated RBC % Seg Neutrophils # Seg Neutrophils # Man Lymphocytes # (Manual) Monocytes # (Manual) Eosinophils # (Manual) Basophils # (Manual) PT INR Fibrinogen dRVVT Confirm Interp Factor V Activity POC ABG pH POC ABG pCO2 POC ABG pO2 ABG pO2 ABG HCO3 ABG Base Excess ABG Hemoglobin Oxyhemoglobin Sodium Potassium Chloride Carbon Dioxide BUN 72 H Creatinine 1.3 H Glucose 130 H POC Glucose 132 H 156 H Lactic Acid Calcium 8.2 L Phosphorus Magnesium Direct Bilirubin AST ALT Alkaline Phosphatase Lactate Dehydrogenase Troponin T C-Reactive Protein Total Protein Albumin Prealbumin Triglycerides Cholesterol LDL Cholesterol Direct HDL Cholesterol Urine pH Urine WBC (Auto) Urine Creatinine Urine Total Protein Fluid Total Protein Vancomycin Trough Rheumatoid Factor Complement C4 Miscellaneous Test Crossmatch 12/24/16 12/25/16 12/25/16 17:53 00:23 05:45 WBC RBC Hgb Hct MCV MCH MCHC RDW Plt Count Lymph % (Auto) [place] % (Auto) Lymph # [place] # Baso # Seg Neutrophils % Seg Neuts % (Manual) Lymphocytes % (Manual) Monocytes % (Manual) Eosinophils % (Manual) Basophils % (Manual) Nucleated RBC % Seg Neutrophils # Seg Neutrophils # Man Lymphocytes # (Manual) Monocytes # (Manual) Eosinophils # (Manual) Basophils # (Manual) PT INR Fibrinogen dRVVT Confirm Interp Factor V Activity POC ABG pH POC ABG pCO2 POC ABG pO2 ABG pO2 ABG HCO3 ABG Base Excess ABG Hemoglobin Oxyhemoglobin Sodium 146 H Potassium Chloride Carbon Dioxide BUN 51 H Creatinine Glucose 109 H POC Glucose 169 H 117 H Lactic Acid Calcium Phosphorus Magnesium Direct Bilirubin AST ALT Alkaline Phosphatase Lactate Dehydrogenase Troponin T C-Reactive Protein Total Protein Albumin Prealbumin Triglycerides Cholesterol LDL Cholesterol Direct HDL Cholesterol Urine pH Urine WBC (Auto) Urine Creatinine Urine Total Protein Fluid Total Protein Vancomycin Trough Rheumatoid Factor Complement C4 Miscellaneous Test Crossmatch 12/25/16 12/25/16 12/25/16 06:43 11:29 17:14 WBC RBC Hgb Hct MCV MCH MCHC RDW Plt Count Lymph % (Auto) [place] % (Auto) Lymph # [place] # Baso # Seg Neutrophils % Seg Neuts % (Manual) Lymphocytes % (Manual) Monocytes % (Manual) Eosinophils % (Manual) Basophils % (Manual) Nucleated RBC % Seg Neutrophils # Seg Neutrophils # Man Lymphocytes # (Manual) Monocytes # (Manual) Eosinophils # (Manual) Basophils # (Manual) PT INR Fibrinogen dRVVT Confirm Interp Factor V Activity POC ABG pH POC ABG pCO2 POC ABG pO2 ABG pO2 ABG HCO3 ABG Base Excess ABG Hemoglobin Oxyhemoglobin Sodium Potassium Chloride Carbon Dioxide BUN Creatinine Glucose POC Glucose 117 H 128 H 120 H Lactic Acid Calcium Phosphorus Magnesium Direct Bilirubin AST ALT Alkaline Phosphatase Lactate Dehydrogenase Troponin T C-Reactive Protein Total Protein Albumin Prealbumin Triglycerides Cholesterol LDL Cholesterol Direct HDL Cholesterol Urine pH Urine WBC (Auto) Urine Creatinine Urine Total Protein Fluid Total Protein Vancomycin Trough Rheumatoid Factor Complement C4 Miscellaneous Test Crossmatch 12/25/16 12/26/16 12/26/16 23:54 05:40 05:50 WBC 16.2 H RBC 2.32 L Hgb 6.2 L Hct 20.1 L MCV MCH 27 L MCHC RDW 18.6 H Plt Count Lymph % (Auto) [place] % (Auto) Lymph # [place] # Baso # Seg Neutrophils % Seg Neuts % (Manual) Lymphocytes % (Manual) Monocytes % (Manual) Eosinophils % (Manual) Basophils % (Manual) Nucleated RBC % Seg Neutrophils # Seg Neutrophils # Man Lymphocytes # (Manual) Monocytes # (Manual) Eosinophils # (Manual) Basophils # (Manual) PT INR Fibrinogen dRVVT Confirm Interp Factor V Activity POC ABG pH POC ABG pCO2 POC ABG pO2 ABG pO2 ABG HCO3 ABG Base Excess ABG Hemoglobin Oxyhemoglobin Sodium Potassium Chloride Carbon Dioxide BUN Creatinine Glucose POC Glucose 126 H 132 H Lactic Acid Calcium Phosphorus Magnesium Direct Bilirubin AST ALT Alkaline Phosphatase Lactate Dehydrogenase Troponin T C-Reactive Protein Total Protein Albumin Prealbumin Triglycerides Cholesterol LDL Cholesterol Direct HDL Cholesterol Urine pH Urine WBC (Auto) Urine Creatinine Urine Total Protein Fluid Total Protein Vancomycin Trough Rheumatoid Factor Complement C4 Miscellaneous Test Crossmatch 12/26/16 12/26/16 12/26/16 05:50 12:17 12:33 WBC RBC Hgb Hct MCV MCH MCHC RDW Plt Count Lymph % (Auto) [place] % (Auto) Lymph # [place] # Baso # Seg Neutrophils % Seg Neuts % (Manual) Lymphocytes % (Manual) Monocytes % (Manual) Eosinophils % (Manual) Basophils % (Manual) Nucleated RBC % Seg Neutrophils # Seg Neutrophils # Man Lymphocytes # (Manual) Monocytes # (Manual) Eosinophils # (Manual) Basophils # (Manual) PT INR Fibrinogen dRVVT Confirm Interp Factor V Activity POC ABG pH POC ABG pCO2 POC ABG pO2 ABG pO2 ABG HCO3 ABG Base Excess ABG Hemoglobin Oxyhemoglobin Sodium Potassium Chloride Carbon Dioxide BUN 73 H Creatinine 1.3 H Glucose 113 H POC Glucose 117 H Lactic Acid Calcium Phosphorus Magnesium Direct Bilirubin AST ALT Alkaline Phosphatase Lactate Dehydrogenase Troponin T C-Reactive Protein Total Protein Albumin Prealbumin Triglycerides Cholesterol LDL Cholesterol Direct HDL Cholesterol Urine pH Urine WBC (Auto) Urine Creatinine Urine Total Protein Fluid Total Protein Vancomycin Trough Rheumatoid Factor Complement C4 Miscellaneous Test Crossmatch See Detail 12/26/16 12/26/16 12/27/16 20:00 23:21 05:00 WBC RBC Hgb 8.4 L Hct 26.3 L D MCV MCH MCHC RDW Plt Count Lymph % (Auto) [place] % (Auto) Lymph # [place] # Baso # Seg Neutrophils % Seg Neuts % (Manual) Lymphocytes % (Manual) Monocytes % (Manual) Eosinophils % (Manual) Basophils % (Manual) Nucleated RBC % Seg Neutrophils # Seg Neutrophils # Man Lymphocytes # (Manual) Monocytes # (Manual) Eosinophils # (Manual) Basophils # (Manual) PT INR Fibrinogen dRVVT Confirm Interp Factor V Activity POC ABG pH POC ABG pCO2 POC ABG pO2 ABG pO2 ABG HCO3 ABG Base Excess ABG Hemoglobin Oxyhemoglobin Sodium Potassium Chloride Carbon Dioxide BUN 85 H Creatinine 1.6 H Glucose 118 H POC Glucose 124 H Lactic Acid Calcium Phosphorus 4.80 H Magnesium Direct Bilirubin AST ALT Alkaline Phosphatase Lactate Dehydrogenase Troponin T C-Reactive Protein Total Protein Albumin Prealbumin Triglycerides Cholesterol LDL Cholesterol Direct HDL Cholesterol Urine pH Urine WBC (Auto) Urine Creatinine Urine Total Protein Fluid Total Protein Vancomycin Trough Rheumatoid Factor Complement C4 Miscellaneous Test Crossmatch 12/27/16 12/27/16 12/27/16 05:00 05:35 12:24 WBC RBC Hgb 7.6 L Hct 22.8 L MCV MCH MCHC RDW Plt Count Lymph % (Auto) [place] % (Auto) Lymph # [place] # Baso # Seg Neutrophils % Seg Neuts % (Manual) Lymphocytes % (Manual) Monocytes % (Manual) Eosinophils % (Manual) Basophils % (Manual) Nucleated RBC % Seg Neutrophils # Seg Neutrophils # Man Lymphocytes # (Manual) Monocytes # (Manual) Eosinophils # (Manual) Basophils # (Manual) PT INR Fibrinogen dRVVT Confirm Interp Factor V Activity POC ABG pH POC ABG pCO2 POC ABG pO2 ABG pO2 ABG HCO3 ABG Base Excess ABG Hemoglobin Oxyhemoglobin Sodium Potassium Chloride Carbon Dioxide BUN Creatinine Glucose POC Glucose 115 H 131 H Lactic Acid Calcium Phosphorus Magnesium Direct Bilirubin AST ALT Alkaline Phosphatase Lactate Dehydrogenase Troponin T C-Reactive Protein Total Protein Albumin Prealbumin Triglycerides Cholesterol LDL Cholesterol Direct HDL Cholesterol Urine pH Urine WBC (Auto) Urine Creatinine Urine Total Protein Fluid Total Protein Vancomycin Trough Rheumatoid Factor Complement C4 Miscellaneous Test Crossmatch 12/27/16 12/28/16 12/28/16 17:16 00:18 04:00 WBC RBC Hgb Hct MCV MCH MCHC RDW Plt Count Lymph % (Auto) [place] % (Auto) Lymph # [place] # Baso # Seg Neutrophils % Seg Neuts % (Manual) Lymphocytes % (Manual) Monocytes % (Manual) Eosinophils % (Manual) Basophils % (Manual) Nucleated RBC % Seg Neutrophils # Seg Neutrophils # Man Lymphocytes # (Manual) Monocytes # (Manual) Eosinophils # (Manual) Basophils # (Manual) PT INR Fibrinogen dRVVT Confirm Interp Factor V Activity POC ABG pH POC ABG pCO2 POC ABG pO2 ABG pO2 ABG HCO3 ABG Base Excess ABG Hemoglobin Oxyhemoglobin Sodium Potassium 3.5 L Chloride Carbon Dioxide BUN 57 H Creatinine Glucose 118 H POC Glucose 136 H 120 H Lactic Acid Calcium 8.3 L Phosphorus Magnesium Direct Bilirubin AST ALT Alkaline Phosphatase Lactate Dehydrogenase Troponin T C-Reactive Protein Total Protein Albumin Prealbumin Triglycerides Cholesterol LDL Cholesterol Direct HDL Cholesterol Urine pH Urine WBC (Auto) Urine Creatinine Urine Total Protein Fluid Total Protein Vancomycin Trough Rheumatoid Factor Complement C4 Miscellaneous Test Crossmatch 12/28/16 12/28/16 12/28/16 04:00 05:11 08:30 WBC 17.0 H RBC 2.58 L Hgb 7.1 L Hct 22.0 L MCV MCH MCHC RDW 17.6 H Plt Count Lymph % (Auto) 12.2 L [place] % (Auto) Lymph # [place] # 1.1 H Baso # Seg Neutrophils % 80.5 H Seg Neuts % (Manual) Lymphocytes % (Manual) Monocytes % (Manual) Eosinophils % (Manual) Basophils % (Manual) Nucleated RBC % Seg Neutrophils # 13.7 H Seg Neutrophils # Man Lymphocytes # (Manual) Monocytes # (Manual) Eosinophils # (Manual) Basophils # (Manual) PT 16.1 H INR 1.23 H Fibrinogen dRVVT Confirm Interp Factor V Activity POC ABG pH POC ABG pCO2 POC ABG pO2 ABG pO2 ABG HCO3 ABG Base Excess ABG Hemoglobin Oxyhemoglobin Sodium Potassium Chloride Carbon Dioxide BUN Creatinine Glucose POC Glucose 122 H Lactic Acid Calcium Phosphorus Magnesium Direct Bilirubin AST ALT Alkaline Phosphatase Lactate Dehydrogenase Troponin T C-Reactive Protein Total Protein Albumin Prealbumin Triglycerides Cholesterol LDL Cholesterol Direct HDL Cholesterol Urine pH Urine WBC (Auto) Urine Creatinine Urine Total Protein Fluid Total Protein Vancomycin Trough Rheumatoid Factor Complement C4 Miscellaneous Test Crossmatch 12/28/16 12/28/16 12/28/16 12:27 16:32 23:46 WBC RBC Hgb Hct MCV MCH MCHC RDW Plt Count Lymph % (Auto) [place] % (Auto) Lymph # [place] # Baso # Seg Neutrophils % Seg Neuts % (Manual) Lymphocytes % (Manual) Monocytes % (Manual) Eosinophils % (Manual) Basophils % (Manual) Nucleated RBC % Seg Neutrophils # Seg Neutrophils # Man Lymphocytes # (Manual) Monocytes # (Manual) Eosinophils # (Manual) Basophils # (Manual) PT INR Fibrinogen dRVVT Confirm Interp Factor V Activity POC ABG pH POC ABG pCO2 POC ABG pO2 ABG pO2 ABG HCO3 ABG Base Excess ABG Hemoglobin Oxyhemoglobin Sodium Potassium Chloride Carbon Dioxide BUN Creatinine Glucose POC Glucose 127 H 117 H 108 H Lactic Acid Calcium Phosphorus Magnesium Direct Bilirubin AST ALT Alkaline Phosphatase Lactate Dehydrogenase Troponin T C-Reactive Protein Total Protein Albumin Prealbumin Triglycerides Cholesterol LDL Cholesterol Direct HDL Cholesterol Urine pH Urine WBC (Auto) Urine Creatinine Urine Total Protein Fluid Total Protein Vancomycin Trough Rheumatoid Factor Complement C4 Miscellaneous Test Crossmatch 12/29/16 12/29/16 12/29/16 05:15 05:15 05:32 WBC RBC Hgb Hct MCV MCH MCHC RDW Plt Count Lymph % (Auto) [place] % (Auto) Lymph # [place] # Baso # Seg Neutrophils % Seg Neuts % (Manual) Lymphocytes % (Manual) Monocytes % (Manual) Eosinophils % (Manual) Basophils % (Manual) Nucleated RBC % Seg Neutrophils # Seg Neutrophils # Man Lymphocytes # (Manual) Monocytes # (Manual) Eosinophils # (Manual) Basophils # (Manual) PT INR Fibrinogen dRVVT Confirm Interp Factor V Activity POC ABG pH POC ABG pCO2 POC ABG pO2 ABG pO2 ABG HCO3 ABG Base Excess ABG Hemoglobin Oxyhemoglobin Sodium Potassium Chloride Carbon Dioxide BUN 74 H Creatinine 1.6 H Glucose 111 H POC Glucose 123 H Lactic Acid Calcium Phosphorus Magnesium Direct Bilirubin AST ALT Alkaline Phosphatase Lactate Dehydrogenase Troponin T C-Reactive Protein Total Protein Albumin Prealbumin 0.110 L Triglycerides Cholesterol LDL Cholesterol Direct HDL Cholesterol Urine pH Urine WBC (Auto) Urine Creatinine Urine Total Protein Fluid Total Protein Vancomycin Trough Rheumatoid Factor Complement C4 Miscellaneous Test Crossmatch 12/29/16 12/29/16 12/29/16 11:43 13:45 14:00 WBC 13.8 H RBC 2.26 L Hgb 6.3 L Hct 20.4 L MCV MCH MCHC RDW 18.3 H Plt Count Lymph % (Auto) [place] % (Auto) Lymph # [place] # 0.9 H Baso # Seg Neutrophils % 78.6 H Seg Neuts % (Manual) Lymphocytes % (Manual) Monocytes % (Manual) Eosinophils % (Manual) Basophils % (Manual) Nucleated RBC % Seg Neutrophils # 10.8 H Seg Neutrophils # Man Lymphocytes # (Manual) Monocytes # (Manual) Eosinophils # (Manual) Basophils # (Manual) PT INR Fibrinogen dRVVT Confirm Interp Factor V Activity POC ABG pH POC ABG pCO2 POC ABG pO2 ABG pO2 ABG HCO3 ABG Base Excess ABG Hemoglobin Oxyhemoglobin Sodium Potassium Chloride Carbon Dioxide BUN Creatinine Glucose POC Glucose 133 H Lactic Acid Calcium Phosphorus Magnesium Direct Bilirubin AST ALT Alkaline Phosphatase Lactate Dehydrogenase Troponin T C-Reactive Protein Total Protein Albumin Prealbumin Triglycerides Cholesterol LDL Cholesterol Direct HDL Cholesterol Urine pH Urine WBC (Auto) Urine Creatinine Urine Total Protein Fluid Total Protein Vancomycin Trough Rheumatoid Factor Complement C4 Miscellaneous Test Crossmatch See Detail 12/29/16 12/29/16 12/29/16 17:03 23:15 23:22 WBC RBC Hgb 7.3 L Hct 22.3 L MCV MCH MCHC RDW Plt Count Lymph % (Auto) [place] % (Auto) Lymph # [place] # Baso # Seg Neutrophils % Seg Neuts % (Manual) Lymphocytes % (Manual) Monocytes % (Manual) Eosinophils % (Manual) Basophils % (Manual) Nucleated RBC % Seg Neutrophils # Seg Neutrophils # Man Lymphocytes # (Manual) Monocytes # (Manual) Eosinophils # (Manual) Basophils # (Manual) PT INR Fibrinogen dRVVT Confirm Interp Factor V Activity POC ABG pH POC ABG pCO2 POC ABG pO2 ABG pO2 ABG HCO3 ABG Base Excess ABG Hemoglobin Oxyhemoglobin Sodium Potassium Chloride Carbon Dioxide BUN Creatinine Glucose POC Glucose 139 H 120 H Lactic Acid Calcium Phosphorus Magnesium Direct Bilirubin AST ALT Alkaline Phosphatase Lactate Dehydrogenase Troponin T C-Reactive Protein Total Protein Albumin Prealbumin Triglycerides Cholesterol LDL Cholesterol Direct HDL Cholesterol Urine pH Urine WBC (Auto) Urine Creatinine Urine Total Protein Fluid Total Protein Vancomycin Trough Rheumatoid Factor Complement C4 Miscellaneous Test Crossmatch 12/30/16 12/30/16 12/30/16 04:20 04:20 05:43 WBC 15.6 H RBC 2.81 L Hgb 8.0 L Hct 24.0 L MCV MCH MCHC RDW 16.9 H Plt Count Lymph % (Auto) [place] % (Auto) Lymph # [place] # 1.0 H Baso # Seg Neutrophils % 76.2 H Seg Neuts % (Manual) Lymphocytes % (Manual) Monocytes % (Manual) Eosinophils % (Manual) Basophils % (Manual) Nucleated RBC % Seg Neutrophils # 11.9 H Seg Neutrophils # Man Lymphocytes # (Manual) Monocytes # (Manual) Eosinophils # (Manual) Basophils # (Manual) PT INR Fibrinogen dRVVT Confirm Interp Factor V Activity POC ABG pH POC ABG pCO2 POC ABG pO2 ABG pO2 ABG HCO3 ABG Base Excess ABG Hemoglobin Oxyhemoglobin Sodium Potassium Chloride Carbon Dioxide BUN 87 H Creatinine 1.8 H Glucose 119 H POC Glucose 115 H Lactic Acid Calcium Phosphorus Magnesium Direct Bilirubin AST ALT Alkaline Phosphatase Lactate Dehydrogenase Troponin T C-Reactive Protein Total Protein Albumin Prealbumin Triglycerides Cholesterol LDL Cholesterol Direct HDL Cholesterol Urine pH Urine WBC (Auto) Urine Creatinine Urine Total Protein Fluid Total Protein Vancomycin Trough Rheumatoid Factor Complement C4 Miscellaneous Test Crossmatch 12/30/16 12/30/16 12/31/16 17:27 23:21 04:00 WBC RBC Hgb Hct MCV MCH MCHC RDW Plt Count Lymph % (Auto) [place] % (Auto) Lymph # [place] # Baso # Seg Neutrophils % Seg Neuts % (Manual) Lymphocytes % (Manual) Monocytes % (Manual) Eosinophils % (Manual) Basophils % (Manual) Nucleated RBC % Seg Neutrophils # Seg Neutrophils # Man Lymphocytes # (Manual) Monocytes # (Manual) Eosinophils # (Manual) Basophils # (Manual) PT INR Fibrinogen dRVVT Confirm Interp Factor V Activity POC ABG pH POC ABG pCO2 POC ABG pO2 ABG pO2 ABG HCO3 ABG Base Excess ABG Hemoglobin Oxyhemoglobin Sodium Potassium Chloride Carbon Dioxide BUN 59 H Creatinine Glucose 298 H POC Glucose 144 H 125 H Lactic Acid Calcium Phosphorus Magnesium Direct Bilirubin AST ALT Alkaline Phosphatase Lactate Dehydrogenase Troponin T C-Reactive Protein Total Protein Albumin Prealbumin Triglycerides Cholesterol LDL Cholesterol Direct HDL Cholesterol Urine pH Urine WBC (Auto) Urine Creatinine Urine Total Protein Fluid Total Protein Vancomycin Trough Rheumatoid Factor Complement C4 Miscellaneous Test Crossmatch 12/31/16 12/31/16 12/31/16 05:11 12:18 18:17 WBC RBC Hgb Hct MCV MCH MCHC RDW Plt Count Lymph % (Auto) [place] % (Auto) Lymph # [place] # Baso # Seg Neutrophils % Seg Neuts % (Manual) Lymphocytes % (Manual) Monocytes % (Manual) Eosinophils % (Manual) Basophils % (Manual) Nucleated RBC % Seg Neutrophils # Seg Neutrophils # Man Lymphocytes # (Manual) Monocytes # (Manual) Eosinophils # (Manual) Basophils # (Manual) PT INR Fibrinogen dRVVT Confirm Interp Factor V Activity POC ABG pH POC ABG pCO2 POC ABG pO2 ABG pO2 ABG HCO3 ABG Base Excess ABG Hemoglobin Oxyhemoglobin Sodium Potassium Chloride Carbon Dioxide BUN Creatinine Glucose POC Glucose 167 H 125 H 133 H Lactic Acid Calcium Phosphorus Magnesium Direct Bilirubin AST ALT Alkaline Phosphatase Lactate Dehydrogenase Troponin T C-Reactive Protein Total Protein Albumin Prealbumin Triglycerides Cholesterol LDL Cholesterol Direct HDL Cholesterol Urine pH Urine WBC (Auto) Urine Creatinine Urine Total Protein Fluid Total Protein Vancomycin Trough Rheumatoid Factor Complement C4 Miscellaneous Test Crossmatch 12/31/16 01/01/17 01/01/17 23:55 05:00 05:12 WBC RBC Hgb Hct MCV MCH MCHC RDW Plt Count Lymph % (Auto) [place] % (Auto) Lymph # [place] # Baso # Seg Neutrophils % Seg Neuts % (Manual) Lymphocytes % (Manual) Monocytes % (Manual) Eosinophils % (Manual) Basophils % (Manual) Nucleated RBC % Seg Neutrophils # Seg Neutrophils # Man Lymphocytes # (Manual) Monocytes # (Manual) Eosinophils # (Manual) Basophils # (Manual) PT INR Fibrinogen dRVVT Confirm Interp Factor V Activity POC ABG pH POC ABG pCO2 POC ABG pO2 ABG pO2 ABG HCO3 ABG Base Excess ABG Hemoglobin Oxyhemoglobin Sodium Potassium Chloride Carbon Dioxide BUN 76 H Creatinine 1.5 H Glucose 109 H POC Glucose 129 H 129 H Lactic Acid Calcium Phosphorus Magnesium Direct Bilirubin AST ALT Alkaline Phosphatase 536 H Lactate Dehydrogenase Troponin T C-Reactive Protein Total Protein Albumin 1.5 L Prealbumin Triglycerides Cholesterol LDL Cholesterol Direct HDL Cholesterol Urine pH Urine WBC (Auto) Urine Creatinine Urine Total Protein Fluid Total Protein Vancomycin Trough Rheumatoid Factor Complement C4 Miscellaneous Test Crossmatch 01/01/17 01/01/17 01/01/17 12:25 17:01 23:32 WBC RBC Hgb Hct MCV MCH MCHC RDW Plt Count Lymph % (Auto) [place] % (Auto) Lymph # [place] # Baso # Seg Neutrophils % Seg Neuts % (Manual) Lymphocytes % (Manual) Monocytes % (Manual) Eosinophils % (Manual) Basophils % (Manual) Nucleated RBC % Seg Neutrophils # Seg Neutrophils # Man Lymphocytes # (Manual) Monocytes # (Manual) Eosinophils # (Manual) Basophils # (Manual) PT INR Fibrinogen dRVVT Confirm Interp Factor V Activity POC ABG pH POC ABG pCO2 POC ABG pO2 ABG pO2 ABG HCO3 ABG Base Excess ABG Hemoglobin Oxyhemoglobin Sodium Potassium Chloride Carbon Dioxide BUN Creatinine Glucose POC Glucose 140 H 142 H 112 H Lactic Acid Calcium Phosphorus Magnesium Direct Bilirubin AST ALT Alkaline Phosphatase Lactate Dehydrogenase Troponin T C-Reactive Protein Total Protein Albumin Prealbumin Triglycerides Cholesterol LDL Cholesterol Direct HDL Cholesterol Urine pH Urine WBC (Auto) Urine Creatinine Urine Total Protein Fluid Total Protein Vancomycin Trough Rheumatoid Factor Complement C4 Miscellaneous Test Crossmatch 01/02/17 01/02/17 01/02/17 04:56 06:00 11:37 WBC RBC Hgb Hct MCV MCH MCHC RDW Plt Count Lymph % (Auto) [place] % (Auto) Lymph # [place] # Baso # Seg Neutrophils % Seg Neuts % (Manual) Lymphocytes % (Manual) Monocytes % (Manual) Eosinophils % (Manual) Basophils % (Manual) Nucleated RBC % Seg Neutrophils # Seg Neutrophils # Man Lymphocytes # (Manual) Monocytes # (Manual) Eosinophils # (Manual) Basophils # (Manual) PT INR Fibrinogen dRVVT Confirm Interp Factor V Activity POC ABG pH POC ABG pCO2 POC ABG pO2 ABG pO2 ABG HCO3 ABG Base Excess ABG Hemoglobin Oxyhemoglobin Sodium Potassium Chloride Carbon Dioxide BUN 88 H Creatinine 1.7 H Glucose 113 H POC Glucose 136 H 200 H Lactic Acid Calcium Phosphorus Magnesium Direct Bilirubin AST ALT Alkaline Phosphatase Lactate Dehydrogenase Troponin T C-Reactive Protein Total Protein Albumin Prealbumin Triglycerides Cholesterol LDL Cholesterol Direct HDL Cholesterol Urine pH Urine WBC (Auto) Urine Creatinine Urine Total Protein Fluid Total Protein Vancomycin Trough Rheumatoid Factor Complement C4 Miscellaneous Test Crossmatch 01/02/17 01/02/17 01/03/17 17:42 22:52 04:54 WBC RBC Hgb Hct MCV MCH MCHC RDW Plt Count Lymph % (Auto) [place] % (Auto) Lymph # [place] # Baso # Seg Neutrophils % Seg Neuts % (Manual) Lymphocytes % (Manual) Monocytes % (Manual) Eosinophils % (Manual) Basophils % (Manual) Nucleated RBC % Seg Neutrophils # Seg Neutrophils # Man Lymphocytes # (Manual) Monocytes # (Manual) Eosinophils # (Manual) Basophils # (Manual) PT INR Fibrinogen dRVVT Confirm Interp Factor V Activity POC ABG pH POC ABG pCO2 POC ABG pO2 ABG pO2 ABG HCO3 ABG Base Excess ABG Hemoglobin Oxyhemoglobin Sodium Potassium Chloride Carbon Dioxide BUN Creatinine Glucose POC Glucose 112 H 133 H 111 H Lactic Acid Calcium Phosphorus Magnesium Direct Bilirubin AST ALT Alkaline Phosphatase Lactate Dehydrogenase Troponin T C-Reactive Protein Total Protein Albumin Prealbumin Triglycerides Cholesterol LDL Cholesterol Direct HDL Cholesterol Urine pH Urine WBC (Auto) Urine Creatinine Urine Total Protein Fluid Total Protein Vancomycin Trough Rheumatoid Factor Complement C4 Miscellaneous Test Crossmatch 01/03/17 01/03/17 01/03/17 05:00 05:00 14:02 WBC 11.2 H RBC 2.56 L Hgb 7.2 L Hct 22.3 L MCV MCH MCHC RDW 17.3 H Plt Count Lymph % (Auto) [place] % (Auto) 10.0 H Lymph # [place] # 1.1 H Baso # Seg Neutrophils % 70.5 H Seg Neuts % (Manual) Lymphocytes % (Manual) Monocytes % (Manual) Eosinophils % (Manual) Basophils % (Manual) Nucleated RBC % Seg Neutrophils # 7.9 H Seg Neutrophils # Man Lymphocytes # (Manual) Monocytes # (Manual) Eosinophils # (Manual) Basophils # (Manual) PT INR Fibrinogen dRVVT Confirm Interp Factor V Activity POC ABG pH POC ABG pCO2 POC ABG pO2 ABG pO2 ABG HCO3 ABG Base Excess ABG Hemoglobin Oxyhemoglobin Sodium Potassium Chloride Carbon Dioxide BUN 60 H Creatinine 1.3 H Glucose 110 H POC Glucose 119 H Lactic Acid Calcium Phosphorus Magnesium Direct Bilirubin AST ALT Alkaline Phosphatase Lactate Dehydrogenase Troponin T C-Reactive Protein Total Protein Albumin Prealbumin Triglycerides Cholesterol LDL Cholesterol Direct HDL Cholesterol Urine pH Urine WBC (Auto) Urine Creatinine Urine Total Protein Fluid Total Protein Vancomycin Trough Rheumatoid Factor Complement C4 Miscellaneous Test Crossmatch 01/03/17 01/03/17 01/04/17 18:13 23:40 05:57 WBC RBC Hgb Hct MCV MCH MCHC RDW Plt Count Lymph % (Auto) [place] % (Auto) Lymph # [place] # Baso # Seg Neutrophils % Seg Neuts % (Manual) Lymphocytes % (Manual) Monocytes % (Manual) Eosinophils % (Manual) Basophils % (Manual) Nucleated RBC % Seg Neutrophils # Seg Neutrophils # Man Lymphocytes # (Manual) Monocytes # (Manual) Eosinophils # (Manual) Basophils # (Manual) PT INR Fibrinogen dRVVT Confirm Interp Factor V Activity POC ABG pH POC ABG pCO2 POC ABG pO2 ABG pO2 ABG HCO3 ABG Base Excess ABG Hemoglobin Oxyhemoglobin Sodium Potassium Chloride Carbon Dioxide BUN Creatinine Glucose POC Glucose 107 H 129 H 111 H Lactic Acid Calcium Phosphorus Magnesium Direct Bilirubin AST ALT Alkaline Phosphatase Lactate Dehydrogenase Troponin T C-Reactive Protein Total Protein Albumin Prealbumin Triglycerides Cholesterol LDL Cholesterol Direct HDL Cholesterol Urine pH Urine WBC (Auto) Urine Creatinine Urine Total Protein Fluid Total Protein Vancomycin Trough Rheumatoid Factor Complement C4 Miscellaneous Test Crossmatch 01/04/17 01/04/17 01/04/17 12:46 15:27 17:11 WBC RBC Hgb Hct MCV MCH MCHC RDW Plt Count Lymph % (Auto) [place] % (Auto) Lymph # [place] # Baso # Seg Neutrophils % Seg Neuts % (Manual) Lymphocytes % (Manual) Monocytes % (Manual) Eosinophils % (Manual) Basophils % (Manual) Nucleated RBC % Seg Neutrophils # Seg Neutrophils # Man Lymphocytes # (Manual) Monocytes # (Manual) Eosinophils # (Manual) Basophils # (Manual) PT INR Fibrinogen dRVVT Confirm Interp Factor V Activity POC ABG pH POC ABG pCO2 POC ABG pO2 ABG pO2 ABG HCO3 ABG Base Excess ABG Hemoglobin Oxyhemoglobin Sodium Potassium Chloride Carbon Dioxide BUN 43 H Creatinine Glucose 124 H POC Glucose 159 H 125 H Lactic Acid Calcium 8.0 L Phosphorus 2.10 L Magnesium Direct Bilirubin AST ALT Alkaline Phosphatase Lactate Dehydrogenase Troponin T C-Reactive Protein Total Protein Albumin Prealbumin Triglycerides Cholesterol LDL Cholesterol Direct HDL Cholesterol Urine pH Urine WBC (Auto) Urine Creatinine Urine Total Protein Fluid Total Protein Vancomycin Trough Rheumatoid Factor Complement C4 Miscellaneous Test Crossmatch 01/04/17 01/05/17 01/05/17 23:31 04:00 05:46 WBC RBC Hgb Hct MCV MCH MCHC RDW Plt Count Lymph % (Auto) [place] % (Auto) Lymph # [place] # Baso # Seg Neutrophils % Seg Neuts % (Manual) Lymphocytes % (Manual) Monocytes % (Manual) Eosinophils % (Manual) Basophils % (Manual) Nucleated RBC % Seg Neutrophils # Seg Neutrophils # Man Lymphocytes # (Manual) Monocytes # (Manual) Eosinophils # (Manual) Basophils # (Manual) PT INR Fibrinogen dRVVT Confirm Interp Factor V Activity POC ABG pH POC ABG pCO2 POC ABG pO2 ABG pO2 ABG HCO3 ABG Base Excess ABG Hemoglobin Oxyhemoglobin Sodium Potassium Chloride Carbon Dioxide BUN 52 H Creatinine 1.3 H Glucose 113 H POC Glucose 123 H 118 H Lactic Acid Calcium Phosphorus 2.40 L Magnesium Direct Bilirubin AST ALT Alkaline Phosphatase Lactate Dehydrogenase Troponin T C-Reactive Protein Total Protein Albumin Prealbumin Triglycerides Cholesterol LDL Cholesterol Direct HDL Cholesterol Urine pH Urine WBC (Auto) Urine Creatinine Urine Total Protein Fluid Total Protein Vancomycin Trough Rheumatoid Factor Complement C4 Miscellaneous Test Crossmatch Allied health notes reviewed: RT
[2017-01-05] MEDS: ROBINUL PO SCH ×2 (10:58→22:12)
[2017-01-05] MEDS: PROTONIX FEEDTUBE SCH (10:58)
[2017-01-05] MEDS: NORVASC PO SCH (10:58)
[2017-01-05] MEDS: HEPARIN SUB-Q SCH ×2 (10:59→22:13)
[2017-01-05] MEDS: CORDARONE PO SCH ×2 (12:33→22:12)
[2017-01-05] MEDS: DAKIN'S HALF STRENGTH TP SCH ×2 (12:33→23:00)
[2017-01-05] MEDS ORDERED: TPN ADULT IV SCH (20:00)
--- NOTE | 2017-01-05 23:29 | Progress Note ---
Assessment and Plan Assessment and plan: Patient is 46-year-old woman with a history of hypertension, diabetes, asthma, hyperlipidemia, chronic kidney disease and anxiety , who was brought in by family because, she couldn't get her words out, her face was also twisted, she was admitted for acute CVA and accelerated hypertension, she had a hx of poor adherence with her medications, and uncontrolled htn. Patient's SBP on admission was noted be greater than 260. TPA was started but this was discontinued after 5 minutes because her blood pressure became uncontrolled. The TPA was not initiated again because the patient was outside the TPA window. Status post cardiac arrest , 11/21/16 on Mechanical ventilation >96 hrs - Received CPR and was resuscitated. - Patient is on amiodarone. Fever - resolved - Antibiotic discontinued today per ID - s/p R thoracentesis on 11/14, 240cc of serous fluid removed, cx of fluid was negative - Stool negative for C. difficile Severe Sepsis with septic shock - Patient has episode of fever and leukocytosis Surgical wound infection/gram-negative sepsis/candidemia/peritonitis - On TPN JUANITA, ESRD - discussed with Dr Wadsworth - Cr 1.7 today Acute CVA with infarct - Neurology input appreciated - CT shows continued evolution of left MCA infarct with slight mass effect and edema, and there is no hemorrhage - PRINCE showed hyperdynamic with ef of 75%, neither clot nor septal defect seen - MRA Brain shows near complete occlusion of M2 and M3 of the left MCA - Repeat CT scan done on 09/11, shows stable findings - carotid doppler negative - Echo shows preserved systolic function but does show some left ventricular diastolic dysfunction - continue asa and statin Persistent vegetative state - This patient's needs placement at SNF - She was denied for LTACH Acute hypoxic respiratory failure requiring MV >96hrs - Status post tracheostomy, was on T piece Nosocomial acquired aspiration pneumonia/sepsis/UTI - Finished a course of antibiotics Asthma/COPD exacerbation - ON trach, mechanical ventilation >96 hrs Status Post CVA Bilateral pleural effusion, s/p right thoracentesis A. fib with RVR Diabetes type 2. Continue sliding-scale regular insulin and Accu-Cheks. Hyperlipidemia. Continue statin Nutrition - TPN Anemia requiring multiple transfusions/acute blood loss - currently stable - Will transfuse if it is below 7 Sacral decubitus ulcer - Status post debridement Disposition. Very poor prognosis. Ethics consult has been placed, will await there input. The high probability of a clinically significant, sudden or life threatening deterioration of the [neurologic, CV] system(s) required my full and direct attention, intervention and personal management. The aggregate critical care time was [35] minutes. This time is in addition to time spent performing reported procedures but includes the following: [x] Data Review and interpretation [x] Patient assessment and monitoring of vital signs [x] Documentation [x] Medication orders and management History Interval history: patient seen and examined, remains unresponsive on the ventilator. No new event , Hospitalist Physical - Physical exam Narrative exam: GEN: Ill appearing, trach, staring into space, not tracking either NECK: SUPPLE, trach in place, ngt in place CVS: regular currently NORMAL S1S2 LUNGS/CHEST: NORMAL CHEST EXPANSION B, GOOD AIR ENTRY B ABD: SOFT, NTND, ostomy bags in different locations, GBS, NO REBOUND OR GUARDING, peg tube in place EXT/SKIN: NO SIGNIFICANT EDEMA BUT WITH UNSTAGEABLE SACRAL DECUB, wound vac inplace MSK: +spontaneous non purposeful movement NEURO: on a ventilator and unresponsive despite being off sedation PSY: Comatose, - Constitutional Vitals: Temp Pulse Resp BP Pulse Ox 98.3 F 97 H 20 118/78 100 01/05/17 23:15 01/05/17 22:15 01/05/17 22:15 01/05/17 22:12 01/05/17 22:15 General appearance: Present: no acute distress, well-nourished, obese Results - Labs CBC & Chem 7: 01/03/17 05:00 01/07/17 06:00 Labs: Laboratory Last Values WBC 11.2 K/mm3 (4.5-11.0) H 01/03/17 05:00 RBC 2.56 M/mm3 (3.65-5.03) L 01/03/17 05:00 Hgb 7.2 gm/dl (10.1-14.3) L 01/03/17 05:00 Hct 22.3 % (30.3-42.9) L 01/03/17 05:00 MCV 87 fl (79-97) 01/03/17 05:00 MCH 28 pg (28-32) 01/03/17 05:00 MCHC 32 % (30-34) 01/03/17 05:00 RDW 17.3 % (13.2-15.2) H 01/03/17 05:00 Plt Count 366 K/mm3 (140-440) 01/03/17 05:00 Lymph % (Auto) 18.5 % (13.4-35.0) 01/03/17 05:00 [place] % (Auto) 10.0 % (0.0-7.3) H 01/03/17 05:00 Eos % (Auto) 0.5 % (0.0-4.3) 01/03/17 05:00 Baso % (Auto) 0.5 % (0.0-1.8) 01/03/17 05:00 Lymph # 2.1 K/mm3 (1.2-5.4) 01/03/17 05:00 [place] # 1.1 K/mm3 (0.0-0.8) H 01/03/17 05:00 Eos # 0.1 K/mm3 (0.0-0.4) 01/03/17 05:00 Baso # 0.1 K/mm3 (0.0-0.1) 01/03/17 05:00 Add Manual Diff Complete 12/19/16 05:02 Total Counted 100 12/19/16 05:02 Seg Neutrophils % 70.5 % (40.0-70.0) H 01/03/17 05:00 Seg Neuts % (Manual) 64.0 % (40.0-70.0) 12/19/16 05:02 Band Neutrophils % 15.0 % 12/19/16 05:02 Lymphocytes % (Manual) 13.0 % (13.4-35.0) L 12/19/16 05:02 Reactive Lymphs % (Man) 0 % 12/19/16 05:02 Monocytes % (Manual) 7.0 % (0.0-7.3) 12/19/16 05:02 Eosinophils % (Manual) 0 % (0.0-4.3) 12/19/16 05:02 Basophils % (Manual) 1.0 % (0.0-1.8) 12/19/16 05:02 Metamyelocytes % 0 % 12/19/16 05:02 Myelocytes % 0 % 12/19/16 05:02 Promyelocytes % 0 % 12/19/16 05:02 Blast Cells % 0 % 12/19/16 05:02 Nucleated RBC % 1.0 % (0.0-0.9) H 12/19/16 05:02 Seg Neutrophils # 7.9 K/mm3 (1.8-7.7) H 01/03/17 05:00 Seg Neutrophils # Man 12.9 K/mm3 (1.8-7.7) H 12/19/16 05:02 Band Neutrophils # 3.0 K/mm3 12/19/16 05:02 Lymphocytes # (Manual) 2.6 K/mm3 (1.2-5.4) 12/19/16 05:02 Abs React Lymphs (Man) 0.0 K/mm3 12/19/16 05:02 Monocytes # (Manual) 1.4 K/mm3 (0.0-0.8) H 12/19/16 05:02 Eosinophils # (Manual) 0.0 K/mm3 (0.0-0.4) 12/19/16 05:02 Basophils # (Manual) 0.2 K/mm3 (0.0-0.1) H 12/19/16 05:02 Metamyelocytes # 0.0 K/mm3 12/19/16 05:02 Myelocytes # 0.0 K/mm3 12/19/16 05:02 Promyelocytes # 0.0 K/mm3 12/19/16 05:02 Blast Cells # 0.0 K/mm3 12/19/16 05:02 Pathologist Review 09/13/16 04:00 WBC Morphology Not Reportable 12/19/16 05:02 Hypersegmented Neuts Not Reportable 12/19/16 05:02 Hyposegmented Neuts Not Reportable 12/19/16 05:02 Hypogranular Neuts Not Reportable 12/19/16 05:02 Smudge Cells Not Reportable 12/19/16 05:02 Toxic Granulation Not Reportable 12/19/16 05:02 Toxic Vacuolation Not Reportable 12/19/16 05:02 Dohle Bodies Not Reportable 12/19/16 05:02 Pelger-Huet Anomaly Not Reportable 12/19/16 05:02 Jasmina Rods Not Reportable 12/19/16 05:02 Platelet Estimate Consistent w auto 12/19/16 05:02 Clumped Platelets Not Reportable 12/19/16 05:02 Plt Clumps, EDTA Not Reportable 12/19/16 05:02 Large Platelets Not Reportable 12/19/16 05:02 Giant Platelets Not Reportable 12/19/16 05:02 Platelet Satelliting Not Reportable 12/19/16 05:02 Plt Morphology Comment Not Reportable 12/19/16 05:02 RBC Morphology Not Reportable 12/19/16 05:02 Dimorphic RBCs Not Reportable 12/19/16 05:02 Polychromasia Not Reportable 12/19/16 05:02 Hypochromasia Not Reportable 12/19/16 05:02 Poikilocytosis Not Reportable 12/19/16 05:02 Anisocytosis Not Reportable 12/19/16 05:02 Microcytosis Not Reportable 12/19/16 05:02 Macrocytosis Not Reportable 12/19/16 05:02 Spherocytes Not Reportable 12/19/16 05:02 Pappenheimer Bodies Not Reportable 12/19/16 05:02 Sickle Cells Not Reportable 12/19/16 05:02 Target Cells Few 12/19/16 05:02 Tear Drop Cells Not Reportable 12/19/16 05:02 Ovalocytes Not Reportable 12/19/16 05:02 Stomatocytes Rare 12/03/16 04:00 Helmet Cells Not Reportable 12/19/16 05:02 [place] Bodies Not Reportable 12/19/16 05:02 [place] Rings Not Reportable 12/19/16 05:02 Arma Cells Not Reportable 12/19/16 05:02 Bite Cells Not Reportable 12/19/16 05:02 Crenated Cell Not Reportable 12/19/16 05:02 Elliptocytes Not Reportable 12/19/16 05:02 Acanthocytes (Spur) Not Reportable 12/19/16 05:02 Rouleaux Not Reportable 12/19/16 05:02 Hemoglobin C Crystals Not Reportable 12/19/16 05:02 Schistocytes Not Reportable 12/19/16 05:02 Malaria parasites Not Reportable 12/19/16 05:02 ESR > 140.0 mm/Hr (0-20) 09/08/16 11:48 Jun Bodies Not Reportable 12/19/16 05:02 Hem Pathologist Commnt No 12/19/16 05:02 PT 16.1 Sec. (12.2-14.9) H 12/28/16 08:30 INR 1.23 (0.87-1.13) H 12/28/16 08:30 APTT 33.0 Sec. (24.2-36.6) 10/09/16 03:45 Thrombin Time 16.8 Sec. (15.1-19.6) 09/03/16 00:10 Fibrinogen 750 mg/dl (211-480) H 09/08/16 11:48 Lupus Anticoagulant see below 09/12/16 09:59 LA PTT Baseline See scanned report 09/12/16 09:59 dRVVT Confirm Interp Positive (Negative) H 09/12/16 09:59 dRVVT Screen 50:50 See scanned report 09/12/16 09:59 dRVVT Mix Interpret See scanned report 09/12/16 09:59 Protein C Antigen 122 % (70-140) 09/08/16 15:35 Free Protein S 97 % normal (50-147) 09/08/16 15:35 Total Protein S 109 % (70-140) 09/08/16 15:35 Antithrombin III Ag 100 % (80-120) 09/08/16 15:35 Heparin Anti-Xa, Unfract Negative (Negative) 09/29/16 13:35 Factor V Activity 182 % (65-150) H 09/08/16 15:35 POC ABG pH 7.503 (7.35-7.45) H 12/19/16 09:36 ABG pH 7.450 pH Units (7.350-7.450) 12/05/16 Unknown POC ABG pCO2 30.1 (35-45) L 12/19/16 09:36 ABG pCO2 29.6 mm Hg 12/05/16 Unknown POC ABG pO2 85 (80-105) 12/19/16 09:36 ABG pO2 75.2 mm Hg (80.0-90.0) L 12/05/16 Unknown POC ABG HCO3 23.6 12/19/16 09:36 ABG HCO3 20.1 mmol/L (20.0-26.0) 12/05/16 Unknown POC ABG Total CO2 25 12/19/16 09:36 POC ABG O2 Sat 97 12/19/16 09:36 ABG O2 Saturation 96.8 % (95.0-99.0) 12/05/16 Unknown ABG O2 Content 9.9 (0.0-44) 12/05/16 Unknown POC ABG Base Excess 1 12/19/16 09:36 ABG Base Excess -3.4 mmol/L (-2.0-3.0) L 12/05/16 Unknown ABG Hemoglobin 7.4 gm/dl (12.0-16.0) L 12/05/16 Unknown ABG Carboxyhemoglobin 1.8 % (0.0-5.0) 12/05/16 Unknown ABG Methemoglobin 0.6 % (0.0-1.5) 12/05/16 Unknown Oxyhemoglobin 94.5 % (95.0-99.0) L 12/05/16 Unknown FiO2 28 % 12/19/16 09:36 Sodium 142 mmol/L (137-145) 01/05/17 04:00 Potassium 4.4 mmol/L (3.6-5.0) 01/05/17 04:00 Chloride 104.4 mmol/L (98-107) 01/05/17 04:00 Carbon Dioxide 26 mmol/L (22-30) 01/05/17 04:00 Anion Gap 16 mmol/L 01/05/17 04:00 BUN 52 mg/dL (7-17) H 01/05/17 04:00 Creatinine 1.3 mg/dL (0.7-1.2) H 01/05/17 04:00 Estimated GFR 54 ml/min 01/05/17 04:00 BUN/Creatinine Ratio 40 % 01/05/17 04:00 Glucose 113 mg/dL (65-100) H 01/05/17 04:00 POC Glucose 142 (70-105) H 01/05/17 17:48 Osmolality 351 Mosm/kg 09/16/16 11:47 Lactic Acid 4.50 mmol/L (0.7-2.0) H* 09/28/16 07:25 Calcium 8.9 mg/dL (8.4-10.2) 01/05/17 04:00 Phosphorus 2.40 mg/dL (2.5-4.5) L 01/05/17 04:00 Magnesium 1.80 mg/dL (1.7-2.3) 01/05/17 04:00 Total Bilirubin 0.50 mg/dL (0.1-1.2) 01/01/17 05:00 Direct Bilirubin 0.3 mg/dL (0-0.2) H 10/10/16 05:00 Indirect Bilirubin 0.1 mg/dL 10/10/16 05:00 AST 35 units/L (5-40) 01/01/17 05:00 ALT 51 units/L (7-56) 01/01/17 05:00 Alkaline Phosphatase 536 units/L (35-129) H 01/01/17 05:00 Ammonia 27.0 umol/L (25-60) 09/07/16 08:37 Lactate Dehydrogenase 196 units/L (91-180) H 11/11/16 06:59 Total Creatine Kinase 121 units/L (30-135) 09/29/16 20:12 CK-MB (CK-2) < 1.0 ng/mL (0.0-4.0) 09/29/16 20:12 CK-MB (CK-2) Rel Index 0.8 (0-4) 09/29/16 20:12 Troponin T 0.204 ng/mL (0.00-0.029) H* 09/29/16 20:12 C-Reactive Protein 19.30 mg/dL (0.00-1.30) H 12/05/16 05:00 Total Protein 6.3 g/dL (6.3-8.2) 01/01/17 05:00 Albumin 1.5 g/dL (3.9-5) L 01/01/17 05:00 Albumin/Globulin Ratio 0.3 % 01/01/17 05:00 Prealbumin 0.110 g/L (0.200-0.400) L 12/29/16 05:15 Triglycerides 137 mg/dL (2-149) 09/29/16 20:12 Cholesterol 31 mg/dL (50-199) L 09/29/16 20:12 LDL Cholesterol Direct 4 mg/dL (50-130) L 09/29/16 20:12 HDL Cholesterol 3 mg/dL (40-59) L 09/29/16 20:12 Cholesterol/HDL Ratio 10.33 % 09/29/16 20:12 Angiotensin Convert Enz See scanned report 09/08/16 11:48 Renin 0.99 ng/mL/h (0.25-5.82) 10/07/16 10:56 Aldosterone <1 ng/dL () 10/07/16 10:56 Aldosterone/Renin Dir see below 10/07/16 10:56 Serotonin Release Assay See scanned report 09/29/16 13:35 TSH 1.010 mlU/mL (0.270-4.200) 09/07/16 08:37 HCG, Qual Negative (Negative) 09/03/16 00:10 Urine Color Yellow (Yellow) 11/05/16 13:09 Urine Turbidity Clear (Clear) 11/05/16 13:09 Urine pH 9.0 (5.0-7.0) H 11/05/16 13:09 Ur Specific [place] 1.011 (1.003-1.030) 11/05/16 13:09 Urine Protein 100 mg/dl mg/dL (Negative) 11/05/16 13:09 Urine Glucose (UA) Neg mg/dL (Negative) 11/05/16 13:09 Urine Ketones Neg mg/dL (Negative) 11/05/16 13:09 Urine Blood Neg (Negative) 11/05/16 13:09 Urine Nitrite Neg (Negative) 11/05/16 13:09 Urine Bilirubin Neg (Negative) 11/05/16 13:09 Urine Urobilinogen < 2.0 mg/dL (<2.0) 11/05/16 13:09 Ur Leukocyte Esterase Neg (Negative) 11/05/16 13:09 Urine WBC (Auto) 4.0 /HPF (0.0-6.0) 11/05/16 13:09 Urine RBC (Auto) 1.0 /HPF (0.0-6.0) 11/05/16 13:09 U Epithel Cells (Auto) 1.0 /HPF (0-13.0) 10/07/16 18:30 Urine Bacteria (Auto) 4+ /HPF (Negative) 11/05/16 13:09 Urine WBC Clumps 2+ /HPF 09/07/16 02:47 Hyaline Casts 4 /LPF 09/07/16 02:47 Urine Mucus Few /HPF 10/07/16 18:30 Urine Yeast (Budding) 3+ /HPF 10/07/16 18:30 Urine Eosinophils None seen (None Seen) 09/07/16 16:00 Urine Total Volume 950 11/12/16 10:18 Urine Creatinine 19.7 mg/dL (0.1-20.0) 11/12/16 10:18 Height (in) 65.0 inches 11/12/16 10:18 Weight (lb) 181.0 lbs 11/12/16 10:18 Creatinine Clearance 5 11/12/16 10:18 Urine Sodium 36 mEq/L 09/16/16 19:19 Urine Total Protein 16 mg/dL (5-11.8) H 09/16/16 19:19 Fluid Total Protein < 3.0 (15.0-45.0) L 11/10/16 14:20 Fluid LDH 123 11/10/16 14:20 Vancomycin Trough 2.3 ug/mL (5.0-20.0) L 09/21/16 13:00 Random Vancomycin 16.5 ug/mL (0-40.0) 11/28/16 09:45 Urine Opiates Screen Presumptive negative 09/03/16 15:11 Urine Methadone Screen Presumptive positive 09/03/16 15:11 Ur Barbiturates Screen Presumptive positive 09/03/16 15:11 Ur Phencyclidine Scrn Presumptive negative 09/03/16 15:11 Ur Amphetamines Screen Presumptive negative 09/03/16 15:11 U Benzodiazepines Scrn Presumptive negative 09/03/16 15:11 Urine Cocaine Screen Presumptive negative 09/03/16 15:11 U Marijuana (THC) Screen Presumptive positive 09/03/16 15:11 Drugs of Abuse Note Disclamer 09/03/16 15:11 Rheumatoid Factor 24 IU/ml (0-13) H 09/08/16 11:48 SAHIL Screen Negative (Negative) 09/07/16 09:20 Proteinase 3 (PR3) Ab <1.0 AI (<1.0) 09/07/16 09:20 Myeloperoxidase Ab <1.0 AI (<1.0) 09/07/16 09:20 Sjogren's Antibody <1.0 AI (<1.0) 09/08/16 15:35 Scl-70 Scleroderma Ab <1.0 AI (<1.0) 09/08/16 15:35 Centromere B Antibody <1.0 AI (<1.0) 09/08/16 12:02 Heparin-induced Plt Ab Negative (Negative) 09/29/16 13:35 UF Heparin High Dose 11 % Release 09/29/16 13:35 SUDHIR UFH Low Dose 0.1 6 % Release 09/29/16 13:35 SUDHIR UFH Low Dose 0.5 8 % Release 09/29/16 13:35 Cardiolipid IgG Ab <14 GPL (<=14) 09/12/16 09:59 Cardiolipid IgA Ab <11 APL (<=11) 09/12/16 09:59 Cardiolipid IgM Ab <12 MPL (<=12) 09/12/16 09:59 Complement C3 148 mg/dL (90-180) 09/07/16 09:20 Complement C4 58 mg/dL (16-47) H 09/07/16 09:20 RPR Nonreactive (Nonreactive) 09/08/16 11:48 Hepatitis A IgM Ab Non-reactive (NonReactive) 09/24/16 14:40 Hep Bs Antigen Non-reactive (Negative) 09/24/16 14:40 Hep B Core IgM Ab Non-reactive (NonReactive) 09/24/16 14:40 Hepatitis C Antibody Non-reactive (NonReactive) 09/24/16 14:40 HIV 1&2 Antibody Rapid Non react (Non React) 09/08/16 11:48 HIV P24 Antigen Non react (Non React) 09/08/16 11:48 Miscellaneous Test Flexitest 1 H 11/05/16 13:25 Blood Type A POSITIVE 12/29/16 14:00 Antibody Screen Negative 12/29/16 14:00 DELORIS Antibody Screen Negative 11/24/16 11:20 Crossmatch See Detail 12/29/16 14:00
[2017-01-06] MEDS: LOPRESSOR PO SCH ×4 (00:14→17:16)
[2017-01-06] MEDS: HumuLIN R SUB-Q SCH ×3 (00:16→17:15)
[2017-01-06] MEDS: DUONEB *Not for PRN Use IH SCH ×4 (02:24→19:21)
[2017-01-06] MEDS: APRESOLINE PO SCH ×3 (06:10→22:00)
--- NOTE | 2017-01-06 07:37 | Progress Note ---
Assessment and Plan Acute Hypoxemic Respiratory Failure (now with exacerbation and back on MVS) Hypertension (unable to receive p.o. meds) Atrial Fibrillation with RVR s/p tracheostomy Acute encephalopathy s/p CVA Oropharyngeal dysphagia Enterococcal bacteremia sepsis syndrome Sacral Decubitus Ulcer (s/p surgical debridement) Anemia Obesity JUANITA now on hemodialysis Enteric Fistula - resume tube feeds at 10mls/hr and resume reglan at 5mg IV q8h - continue HD/UF per nephrology; with CXR picture i will recommend continued UF sessions at least 3 x weekly - ordered US chest; will consider thoracentesis done as should aid weaning off the ventilator and getting to a lower level of care - continue fentanyl patch for pain issues especially s/p debridement - continue wound care per WCT and RN's (s/p surgical debridement) - continue prn vasopressin if MAP falls < 60mmHg - prn CRP & lactate levels if clinically indicated (Follow WBC also) - keep on with daily PSV trials and / or T-piece as tolerated (repeat trial each shift if failed earlier shift)(not tolerating today) - continue TPN administration - continue scopolamine for secretion control - continue to wean FiO2 for sats > 94% - continue bronchodilators and pulmonary toilet - VAP bundle addressed - continue prn IV metorolol - continue metoprolol and amlodipine (hold for hypotension) - continue to follow electrolytes and correct as necessary - continue GI & VTE prophylaxis - Continue flu & pneumovax per protocol - ethics consult placed .....she remains critically ill on life sustaining interventions including MVS and at risk for further deterioration including ....30' CCT today without overlap ....care plan discussed at length during team rounds ...oysterman prognosis remains guarded and this has intermittently been conveyed to family Subjective Date of service: 01/06/17 Principal diagnosis: Acute resp failure on MVS; S/P Acute CVA; Acute Encephalopathy; JUANITA Interval history: Patient is seen today for: Acute resp failure on MVS; S/P Acute CVA; Acute Encephalopathy; JUANITA Seen and examined at bedside; 24hour events reviewed; nursing and respiratory care staff consulted; no adverse overnight events reported to me; silvia remains critically ill and is not tolerating weaning well; her NGT effluent is reduced; AMS is persistent; tolerating dialysis sessions; CXR still with bilateral effusions and volume overload pattern Objective Vital Signs - 12hr 01/05/17 01/05/17 01/05/17 19:38 19:46 20:08 Temperature Pulse Rate 91 H 92 H 93 H Pulse Rate [ Anterior Bilateral Throughout] Respiratory 18 19 Rate Respiratory Rate [Anterior Bilateral Throughout] Blood Pressure 109/68 109/68 O2 Sat by Pulse 100 100 100 Oximetry 01/05/17 01/05/17 01/05/17 20:15 20:31 20:45 Temperature Pulse Rate 95 H 94 H 96 H Pulse Rate [ 103 H Anterior Bilateral Throughout] Respiratory 21 21 21 Rate Respiratory 24 Rate [Anterior Bilateral Throughout] Blood Pressure 118/68 118/68 O2 Sat by Pulse 100 100 100 Oximetry 01/05/17 01/05/17 01/05/17 21:00 21:15 21:31 Temperature Pulse Rate 97 H 97 H 97 H Pulse Rate [ Anterior Bilateral Throughout] Respiratory 21 20 18 Rate Respiratory Rate [Anterior Bilateral Throughout] Blood Pressure 123/79 123/79 123/79 O2 Sat by Pulse 100 100 100 Oximetry 01/05/17 01/05/17 01/05/17 21:45 22:00 22:11 Temperature Pulse Rate 97 H 97 H 96 H Pulse Rate [ Anterior Bilateral Throughout] Respiratory 18 19 26 H Rate Respiratory Rate [Anterior Bilateral Throughout] Blood Pressure 123/79 118/78 118/78 O2 Sat by Pulse 100 100 100 Oximetry 01/05/17 01/05/17 01/05/17 22:12 22:15 22:17 Temperature Pulse Rate 96 H 97 H 98 H Pulse Rate [ Anterior Bilateral Throughout] Respiratory 20 20 Rate Respiratory Rate [Anterior Bilateral Throughout] Blood Pressure 118/78 118/78 O2 Sat by Pulse 100 100 Oximetry 01/05/17 01/05/17 01/05/17 22:31 22:45 23:00 Temperature Pulse Rate 99 H 99 H 101 H Pulse Rate [ Anterior Bilateral Throughout] Respiratory 20 20 22 Rate Respiratory Rate [Anterior Bilateral Throughout] Blood Pressure 118/78 118/78 124/82 O2 Sat by Pulse 100 100 100 Oximetry 01/05/17 01/05/17 01/05/17 23:15 23:27 23:31 Temperature 98.3 F Pulse Rate 101 H 101 H 102 H Pulse Rate [ Anterior Bilateral Throughout] Respiratory 21 20 Rate Respiratory Rate [Anterior Bilateral Throughout] Blood Pressure 124/82 124/82 124/82 O2 Sat by Pulse 100 100 100 Oximetry 01/05/17 01/06/17 01/06/17 23:45 00:00 00:14 Temperature Pulse Rate 104 H 103 H 107 H Pulse Rate [ Anterior Bilateral Throughout] Respiratory 20 20 Rate Respiratory Rate [Anterior Bilateral Throughout] Blood Pressure 124/82 134/85 134/85 O2 Sat by Pulse 100 100 Oximetry 01/06/17 01/06/17 01/06/17 00:15 00:31 00:45 Temperature Pulse Rate 104 H 103 H 104 H Pulse Rate [ Anterior Bilateral Throughout] Respiratory 17 19 19 Rate Respiratory Rate [Anterior Bilateral Throughout] Blood Pressure 134/85 134/85 134/85 O2 Sat by Pulse 100 100 100 Oximetry 01/06/17 01/06/17 01/06/17 01:00 01:15 01:30 Temperature Pulse Rate 98 H 98 H 97 H Pulse Rate [ Anterior Bilateral Throughout] Respiratory 18 20 20 Rate Respiratory Rate [Anterior Bilateral Throughout] Blood Pressure 129/78 129/78 129/78 O2 Sat by Pulse 100 100 100 Oximetry 01/06/17 01/06/17 01/06/17 01:45 02:00 02:15 Temperature Pulse Rate 109 H 105 H 97 H Pulse Rate [ Anterior Bilateral Throughout] Respiratory 21 21 20 Rate Respiratory Rate [Anterior Bilateral Throughout] Blood Pressure 129/78 120/84 129/78 O2 Sat by Pulse 100 100 100 Oximetry 01/06/17 01/06/17 01/06/17 02:26 02:31 02:45 Temperature Pulse Rate 97 H 95 H Pulse Rate [ 96 H Anterior Bilateral Throughout] Respiratory 23 21 Rate Respiratory 20 Rate [Anterior Bilateral Throughout] Blood Pressure 129/78 129/78 O2 Sat by Pulse 100 100 Oximetry 01/06/17 01/06/17 01/06/17 03:00 03:15 03:31 Temperature Pulse Rate 92 H 94 H 94 H Pulse Rate [ Anterior Bilateral Throughout] Respiratory 20 20 19 Rate Respiratory Rate [Anterior Bilateral Throughout] Blood Pressure 113/71 120/84 120/84 O2 Sat by Pulse 100 100 100 Oximetry 01/06/17 01/06/17 01/06/17 03:37 03:45 04:00 Temperature 98.5 F Pulse Rate 94 H 95 H Pulse Rate [ Anterior Bilateral Throughout] Respiratory 19 21 Rate Respiratory Rate [Anterior Bilateral Throughout] Blood Pressure 120/84 130/81 O2 Sat by Pulse 100 100 Oximetry 01/06/17 01/06/17 01/06/17 04:15 04:31 04:45 Temperature Pulse Rate 96 H 96 H 96 H Pulse Rate [ Anterior Bilateral Throughout] Respiratory 18 19 17 Rate Respiratory Rate [Anterior Bilateral Throughout] Blood Pressure 130/81 130/81 130/81 O2 Sat by Pulse 100 100 100 Oximetry 01/06/17 01/06/17 01/06/17 05:00 05:15 05:31 Temperature Pulse Rate 96 H 104 H 96 H Pulse Rate [ Anterior Bilateral Throughout] Respiratory 20 25 H 20 Rate Respiratory Rate [Anterior Bilateral Throughout] Blood Pressure 140/82 140/82 140/82 O2 Sat by Pulse 100 100 100 Oximetry 01/06/17 01/06/17 01/06/17 05:45 06:00 06:09 Temperature Pulse Rate 97 H 96 H 102 H Pulse Rate [ Anterior Bilateral Throughout] Respiratory 19 20 Rate Respiratory Rate [Anterior Bilateral Throughout] Blood Pressure 140/82 136/83 136/83 O2 Sat by Pulse 100 100 Oximetry 01/06/17 06:10 Temperature Pulse Rate 98 H Pulse Rate [ Anterior Bilateral Throughout] Respiratory Rate Respiratory Rate [Anterior Bilateral Throughout] Blood Pressure 136/83 O2 Sat by Pulse Oximetry Constitutional: appears uncomfortable, other (not tracking) Eyes: non-icteric, other (tracheostomy tube in midline of neck) ENT: oropharynx moist, oropharyngeal exudate pre Neck: supple, no lymphadenopathy, no JVD, other (no thyromegaly) Effort: mildly labored Ascultation: Bilateral: diminished breath sounds (bases), rhonchi (and referred upper airway sounds) Percussion: Bilateral: dull (bases) Cardiovascular: regular rate and rhythm, other (no rubs / murmurs) Gastrointestinal: hypoactive bowel sounds, soft, non-tender, non-distended, other (RLQ & LUQ stomas with colostomy bags) Integumentary: decubitus ulcer (sacral; stage 4 s/p surgical debridement), other (no rash; no cellulitis; poor turgor) Extremities: no cyanosis, pulses normal, no ischemia or petechiae, edema (1+ bilaterally) Neurologic: pupils equal and round, unable to assess, other (encephalopathic) Psychiatric: other (unable to assess) CBC and BMP: 01/03/17 05:00 01/07/17 06:00 ABG, PT/INR, D-dimer: ABG POC ABG pH 7.503 (7.35-7.45) H 12/19/16 09:36 ABG pH 7.450 pH Units (7.350-7.450) 12/05/16 Unknown POC ABG pCO2 30.1 (35-45) L 12/19/16 09:36 ABG pCO2 29.6 mm Hg 12/05/16 Unknown POC ABG pO2 85 (80-105) 12/19/16 09:36 ABG pO2 75.2 mm Hg (80.0-90.0) L 12/05/16 Unknown POC ABG HCO3 23.6 12/19/16 09:36 POC ABG Total CO2 25 12/19/16 09:36 POC ABG O2 Sat 97 12/19/16 09:36 ABG O2 Saturation 96.8 % (95.0-99.0) 12/05/16 Unknown PT/INR, D-dimer PT 16.1 Sec. (12.2-14.9) H 12/28/16 08:30 INR 1.23 (0.87-1.13) H 12/28/16 08:30 Abnormal lab findings: Abnormal Labs 09/03/16 09/03/16 09/03/16 00:03 00:10 00:10 WBC 13.9 H RBC 5.95 H Hgb Hct 44.0 H MCV 74 L MCH 22 L MCHC RDW 17.5 H Plt Count Lymph % (Auto) [place] % (Auto) Lymph # [place] # Baso # Seg Neutrophils % Seg Neuts % (Manual) Lymphocytes % (Manual) 54.0 H Monocytes % (Manual) Eosinophils % (Manual) Basophils % (Manual) Nucleated RBC % Seg Neutrophils # Seg Neutrophils # Man Lymphocytes # (Manual) 7.5 H Monocytes # (Manual) Eosinophils # (Manual) Basophils # (Manual) PT INR Fibrinogen dRVVT Confirm Interp Factor V Activity POC ABG pH POC ABG pCO2 POC ABG pO2 ABG pO2 ABG HCO3 ABG Base Excess ABG Hemoglobin Oxyhemoglobin Sodium Potassium 2.8 L* Chloride Carbon Dioxide 21 L BUN Creatinine 1.7 H Glucose 159 H POC Glucose 177 H Lactic Acid Calcium Phosphorus Magnesium Direct Bilirubin AST ALT Alkaline Phosphatase Lactate Dehydrogenase Troponin T C-Reactive Protein Total Protein Albumin Prealbumin Triglycerides Cholesterol LDL Cholesterol Direct HDL Cholesterol Urine pH Urine WBC (Auto) Urine Creatinine Urine Total Protein Fluid Total Protein Vancomycin Trough Rheumatoid Factor Complement C4 Miscellaneous Test Crossmatch 09/03/16 09/03/16 09/03/16 12:12 15:07 16:20 WBC RBC Hgb Hct MCV MCH MCHC RDW Plt Count Lymph % (Auto) [place] % (Auto) Lymph # [place] # Baso # Seg Neutrophils % Seg Neuts % (Manual) Lymphocytes % (Manual) Monocytes % (Manual) Eosinophils % (Manual) Basophils % (Manual) Nucleated RBC % Seg Neutrophils # Seg Neutrophils # Man Lymphocytes # (Manual) Monocytes # (Manual) Eosinophils # (Manual) Basophils # (Manual) PT INR Fibrinogen dRVVT Confirm Interp Factor V Activity POC ABG pH 7.452 H POC ABG pCO2 POC ABG pO2 ABG pO2 ABG HCO3 ABG Base Excess ABG Hemoglobin Oxyhemoglobin Sodium Potassium Chloride Carbon Dioxide BUN Creatinine Glucose POC Glucose 178 H Lactic Acid Calcium Phosphorus 2.20 L Magnesium 1.60 L Direct Bilirubin AST ALT Alkaline Phosphatase Lactate Dehydrogenase Troponin T C-Reactive Protein Total Protein Albumin Prealbumin Triglycerides Cholesterol LDL Cholesterol Direct HDL Cholesterol Urine pH Urine WBC (Auto) Urine Creatinine Urine Total Protein Fluid Total Protein Vancomycin Trough Rheumatoid Factor Complement C4 Miscellaneous Test Crossmatch 09/03/16 09/03/16 09/03/16 17:57 17:58 23:50 WBC RBC Hgb Hct MCV MCH MCHC RDW Plt Count Lymph % (Auto) [place] % (Auto) Lymph # [place] # Baso # Seg Neutrophils % Seg Neuts % (Manual) Lymphocytes % (Manual) Monocytes % (Manual) Eosinophils % (Manual) Basophils % (Manual) Nucleated RBC % Seg Neutrophils # Seg Neutrophils # Man Lymphocytes # (Manual) Monocytes # (Manual) Eosinophils # (Manual) Basophils # (Manual) PT INR Fibrinogen dRVVT Confirm Interp Factor V Activity POC ABG pH POC ABG pCO2 POC ABG pO2 ABG pO2 ABG HCO3 ABG Base Excess ABG Hemoglobin Oxyhemoglobin Sodium Potassium Chloride Carbon Dioxide BUN Creatinine Glucose POC Glucose 162 H 145 H Lactic Acid Calcium Phosphorus 2.30 L Magnesium Direct Bilirubin AST ALT Alkaline Phosphatase Lactate Dehydrogenase Troponin T C-Reactive Protein Total Protein Albumin Prealbumin Triglycerides Cholesterol LDL Cholesterol Direct HDL Cholesterol Urine pH Urine WBC (Auto) Urine Creatinine Urine Total Protein Fluid Total Protein Vancomycin Trough Rheumatoid Factor Complement C4 Miscellaneous Test Crossmatch 09/04/16 09/04/16 09/04/16 03:31 03:31 05:42 WBC RBC Hgb 9.7 L D Hct MCV 72 L MCH 23 L MCHC RDW 17.5 H Plt Count Lymph % (Auto) 11.1 L [place] % (Auto) Lymph # [place] # Baso # Seg Neutrophils % 84.3 H Seg Neuts % (Manual) Lymphocytes % (Manual) Monocytes % (Manual) Eosinophils % (Manual) Basophils % (Manual) Nucleated RBC % Seg Neutrophils # 8.9 H Seg Neutrophils # Man Lymphocytes # (Manual) Monocytes # (Manual) Eosinophils # (Manual) Basophils # (Manual) PT INR Fibrinogen dRVVT Confirm Interp Factor V Activity POC ABG pH POC ABG pCO2 POC ABG pO2 ABG pO2 ABG HCO3 ABG Base Excess ABG Hemoglobin Oxyhemoglobin Sodium 135 L Potassium 2.9 L* Chloride 97.2 L Carbon Dioxide 19 L BUN Creatinine 1.7 H Glucose 170 H POC Glucose 152 H Lactic Acid Calcium Phosphorus Magnesium Direct Bilirubin AST ALT Alkaline Phosphatase Lactate Dehydrogenase Troponin T C-Reactive Protein Total Protein Albumin Prealbumin Triglycerides 160 H Cholesterol LDL Cholesterol Direct HDL Cholesterol 31 L Urine pH Urine WBC (Auto) Urine Creatinine Urine Total Protein Fluid Total Protein Vancomycin Trough Rheumatoid Factor Complement C4 Miscellaneous Test Crossmatch 09/04/16 09/04/16 09/04/16 11:34 17:46 23:29 WBC RBC Hgb Hct MCV MCH MCHC RDW Plt Count Lymph % (Auto) [place] % (Auto) Lymph # [place] # Baso # Seg Neutrophils % Seg Neuts % (Manual) Lymphocytes % (Manual) Monocytes % (Manual) Eosinophils % (Manual) Basophils % (Manual) Nucleated RBC % Seg Neutrophils # Seg Neutrophils # Man Lymphocytes # (Manual) Monocytes # (Manual) Eosinophils # (Manual) Basophils # (Manual) PT INR Fibrinogen dRVVT Confirm Interp Factor V Activity POC ABG pH POC ABG pCO2 POC ABG pO2 ABG pO2 ABG HCO3 ABG Base Excess ABG Hemoglobin Oxyhemoglobin Sodium Potassium Chloride Carbon Dioxide BUN Creatinine Glucose POC Glucose 165 H 210 H 139 H Lactic Acid Calcium Phosphorus Magnesium Direct Bilirubin AST ALT Alkaline Phosphatase Lactate Dehydrogenase Troponin T C-Reactive Protein Total Protein Albumin Prealbumin Triglycerides Cholesterol LDL Cholesterol Direct HDL Cholesterol Urine pH Urine WBC (Auto) Urine Creatinine Urine Total Protein Fluid Total Protein Vancomycin Trough Rheumatoid Factor Complement C4 Miscellaneous Test Crossmatch 09/05/16 09/05/16 09/05/16 04:05 04:05 05:38 WBC RBC Hgb Hct MCV 76 L D MCH 23 L MCHC RDW 17.8 H Plt Count Lymph % (Auto) [place] % (Auto) Lymph # [place] # Baso # Seg Neutrophils % Seg Neuts % (Manual) Lymphocytes % (Manual) Monocytes % (Manual) Eosinophils % (Manual) Basophils % (Manual) Nucleated RBC % Seg Neutrophils # Seg Neutrophils # Man Lymphocytes # (Manual) Monocytes # (Manual) Eosinophils # (Manual) Basophils # (Manual) PT INR Fibrinogen dRVVT Confirm Interp Factor V Activity POC ABG pH POC ABG pCO2 POC ABG pO2 ABG pO2 ABG HCO3 ABG Base Excess ABG Hemoglobin Oxyhemoglobin Sodium 134 L Potassium Chloride Carbon Dioxide 18 L BUN Creatinine 1.8 H Glucose 192 H POC Glucose 175 H Lactic Acid Calcium Phosphorus Magnesium Direct Bilirubin AST ALT Alkaline Phosphatase Lactate Dehydrogenase Troponin T C-Reactive Protein Total Protein Albumin Prealbumin Triglycerides Cholesterol LDL Cholesterol Direct HDL Cholesterol Urine pH Urine WBC (Auto) Urine Creatinine Urine Total Protein Fluid Total Protein Vancomycin Trough Rheumatoid Factor Complement C4 Miscellaneous Test Crossmatch 09/05/16 09/05/16 09/05/16 11:38 17:48 23:22 WBC RBC Hgb Hct MCV MCH MCHC RDW Plt Count Lymph % (Auto) [place] % (Auto) Lymph # [place] # Baso # Seg Neutrophils % Seg Neuts % (Manual) Lymphocytes % (Manual) Monocytes % (Manual) Eosinophils % (Manual) Basophils % (Manual) Nucleated RBC % Seg Neutrophils # Seg Neutrophils # Man Lymphocytes # (Manual) Monocytes # (Manual) Eosinophils # (Manual) Basophils # (Manual) PT INR Fibrinogen dRVVT Confirm Interp Factor V Activity POC ABG pH POC ABG pCO2 POC ABG pO2 ABG pO2 ABG HCO3 ABG Base Excess ABG Hemoglobin Oxyhemoglobin Sodium Potassium Chloride Carbon Dioxide BUN Creatinine Glucose POC Glucose 164 H 186 H 195 H Lactic Acid Calcium Phosphorus Magnesium Direct Bilirubin AST ALT Alkaline Phosphatase Lactate Dehydrogenase Troponin T C-Reactive Protein Total Protein Albumin Prealbumin Triglycerides Cholesterol LDL Cholesterol Direct HDL Cholesterol Urine pH Urine WBC (Auto) Urine Creatinine Urine Total Protein Fluid Total Protein Vancomycin Trough Rheumatoid Factor Complement C4 Miscellaneous Test Crossmatch 09/06/16 09/06/16 09/06/16 04:12 05:59 07:32 WBC RBC Hgb Hct MCV MCH MCHC RDW Plt Count Lymph % (Auto) [place] % (Auto) Lymph # [place] # Baso # Seg Neutrophils % Seg Neuts % (Manual) Lymphocytes % (Manual) Monocytes % (Manual) Eosinophils % (Manual) Basophils % (Manual) Nucleated RBC % Seg Neutrophils # Seg Neutrophils # Man Lymphocytes # (Manual) Monocytes # (Manual) Eosinophils # (Manual) Basophils # (Manual) PT INR Fibrinogen dRVVT Confirm Interp Factor V Activity POC ABG pH 7.514 H POC ABG pCO2 29.1 L POC ABG pO2 72 L ABG pO2 ABG HCO3 ABG Base Excess ABG Hemoglobin Oxyhemoglobin Sodium 133 L Potassium 3.4 L Chloride 94.9 L Carbon Dioxide 19 L BUN 30 H Creatinine 2.1 H Glucose 139 H POC Glucose 146 H Lactic Acid Calcium Phosphorus Magnesium Direct Bilirubin AST ALT Alkaline Phosphatase Lactate Dehydrogenase Troponin T C-Reactive Protein Total Protein Albumin Prealbumin Triglycerides Cholesterol LDL Cholesterol Direct HDL Cholesterol Urine pH Urine WBC (Auto) Urine Creatinine Urine Total Protein Fluid Total Protein Vancomycin Trough Rheumatoid Factor Complement C4 Miscellaneous Test Crossmatch 09/06/16 09/06/16 09/06/16 11:57 17:58 19:02 WBC RBC Hgb Hct MCV MCH MCHC RDW Plt Count Lymph % (Auto) [place] % (Auto) Lymph # [place] # Baso # Seg Neutrophils % Seg Neuts % (Manual) Lymphocytes % (Manual) Monocytes % (Manual) Eosinophils % (Manual) Basophils % (Manual) Nucleated RBC % Seg Neutrophils # Seg Neutrophils # Man Lymphocytes # (Manual) Monocytes # (Manual) Eosinophils # (Manual) Basophils # (Manual) PT INR Fibrinogen dRVVT Confirm Interp Factor V Activity POC ABG pH 7.465 H POC ABG pCO2 32.0 L POC ABG pO2 ABG pO2 ABG HCO3 ABG Base Excess ABG Hemoglobin Oxyhemoglobin Sodium Potassium Chloride Carbon Dioxide BUN Creatinine Glucose POC Glucose 165 H 160 H Lactic Acid Calcium Phosphorus Magnesium Direct Bilirubin AST ALT Alkaline Phosphatase Lactate Dehydrogenase Troponin T C-Reactive Protein Total Protein Albumin Prealbumin Triglycerides Cholesterol LDL Cholesterol Direct HDL Cholesterol Urine pH Urine WBC (Auto) Urine Creatinine Urine Total Protein Fluid Total Protein Vancomycin Trough Rheumatoid Factor Complement C4 Miscellaneous Test Crossmatch 09/06/16 09/07/16 09/07/16 23:45 02:47 02:47 WBC RBC Hgb Hct MCV MCH MCHC RDW Plt Count Lymph % (Auto) [place] % (Auto) Lymph # [place] # Baso # Seg Neutrophils % Seg Neuts % (Manual) Lymphocytes % (Manual) Monocytes % (Manual) Eosinophils % (Manual) Basophils % (Manual) Nucleated RBC % Seg Neutrophils # Seg Neutrophils # Man Lymphocytes # (Manual) Monocytes # (Manual) Eosinophils # (Manual) Basophils # (Manual) PT INR Fibrinogen dRVVT Confirm Interp Factor V Activity POC ABG pH POC ABG pCO2 POC ABG pO2 ABG pO2 ABG HCO3 ABG Base Excess ABG Hemoglobin Oxyhemoglobin Sodium Potassium Chloride Carbon Dioxide BUN Creatinine Glucose POC Glucose 204 H Lactic Acid Calcium Phosphorus Magnesium Direct Bilirubin AST ALT Alkaline Phosphatase Lactate Dehydrogenase Troponin T C-Reactive Protein Total Protein Albumin Prealbumin Triglycerides Cholesterol LDL Cholesterol Direct HDL Cholesterol Urine pH Urine WBC (Auto) 68.0 H Urine Creatinine 106.1 H Urine Total Protein Fluid Total Protein Vancomycin Trough Rheumatoid Factor Complement C4 Miscellaneous Test Crossmatch 09/07/16 09/07/16 09/07/16 04:50 06:19 06:39 WBC RBC Hgb Hct MCV MCH MCHC RDW Plt Count Lymph % (Auto) [place] % (Auto) Lymph # [place] # Baso # Seg Neutrophils % Seg Neuts % (Manual) Lymphocytes % (Manual) Monocytes % (Manual) Eosinophils % (Manual) Basophils % (Manual) Nucleated RBC % Seg Neutrophils # Seg Neutrophils # Man Lymphocytes # (Manual) Monocytes # (Manual) Eosinophils # (Manual) Basophils # (Manual) PT INR Fibrinogen dRVVT Confirm Interp Factor V Activity POC ABG pH 7.457 H POC ABG pCO2 32.1 L POC ABG pO2 76 L ABG pO2 ABG HCO3 ABG Base Excess ABG Hemoglobin Oxyhemoglobin Sodium 132 L Potassium Chloride 94.7 L Carbon Dioxide BUN 53 H Creatinine 2.9 H Glucose 151 H POC Glucose 149 H Lactic Acid Calcium Phosphorus Magnesium Direct Bilirubin AST ALT Alkaline Phosphatase Lactate Dehydrogenase Troponin T C-Reactive Protein Total Protein Albumin Prealbumin Triglycerides Cholesterol LDL Cholesterol Direct HDL Cholesterol Urine pH Urine WBC (Auto) Urine Creatinine Urine Total Protein Fluid Total Protein Vancomycin Trough Rheumatoid Factor Complement C4 Miscellaneous Test Crossmatch 09/07/16 09/07/16 09/07/16 09:20 11:43 11:43 WBC 19.4 H RBC Hgb 8.3 L Hct 26.4 L D MCV 72 L D MCH 22 L MCHC RDW 17.9 H Plt Count Lymph % (Auto) 8.5 L [place] % (Auto) Lymph # [place] # 1.0 H Baso # Seg Neutrophils % 85.8 H Seg Neuts % (Manual) Lymphocytes % (Manual) Monocytes % (Manual) Eosinophils % (Manual) Basophils % (Manual) Nucleated RBC % Seg Neutrophils # 16.6 H Seg Neutrophils # Man Lymphocytes # (Manual) Monocytes # (Manual) Eosinophils # (Manual) Basophils # (Manual) PT INR Fibrinogen dRVVT Confirm Interp Factor V Activity POC ABG pH POC ABG pCO2 POC ABG pO2 ABG pO2 ABG HCO3 ABG Base Excess ABG Hemoglobin Oxyhemoglobin Sodium 134 L Potassium Chloride 97.2 L Carbon Dioxide 20 L BUN 58 H Creatinine 2.9 H Glucose 147 H POC Glucose Lactic Acid Calcium Phosphorus 2.40 L Magnesium 2.40 H Direct Bilirubin AST ALT Alkaline Phosphatase Lactate Dehydrogenase Troponin T C-Reactive Protein Total Protein 5.8 L Albumin 2.2 L Prealbumin Triglycerides Cholesterol LDL Cholesterol Direct HDL Cholesterol Urine pH Urine WBC (Auto) Urine Creatinine Urine Total Protein Fluid Total Protein Vancomycin Trough Rheumatoid Factor Complement C4 58 H Miscellaneous Test Crossmatch 09/07/16 09/07/16 09/07/16 11:50 16:00 17:31 WBC RBC Hgb Hct MCV MCH MCHC RDW Plt Count Lymph % (Auto) [place] % (Auto) Lymph # [place] # Baso # Seg Neutrophils % Seg Neuts % (Manual) Lymphocytes % (Manual) Monocytes % (Manual) Eosinophils % (Manual) Basophils % (Manual) Nucleated RBC % Seg Neutrophils # Seg Neutrophils # Man Lymphocytes # (Manual) Monocytes # (Manual) Eosinophils # (Manual) Basophils # (Manual) PT INR Fibrinogen dRVVT Confirm Interp Factor V Activity POC ABG pH POC ABG pCO2 POC ABG pO2 158 H ABG pO2 ABG HCO3 ABG Base Excess ABG Hemoglobin Oxyhemoglobin Sodium Potassium Chloride Carbon Dioxide BUN Creatinine Glucose POC Glucose 175 H Lactic Acid Calcium Phosphorus Magnesium Direct Bilirubin AST ALT Alkaline Phosphatase Lactate Dehydrogenase Troponin T C-Reactive Protein Total Protein Albumin Prealbumin Triglycerides Cholesterol LDL Cholesterol Direct HDL Cholesterol Urine pH Urine WBC (Auto) Urine Creatinine 66.3 H Urine Total Protein Fluid Total Protein Vancomycin Trough Rheumatoid Factor Complement C4 Miscellaneous Test Crossmatch 09/07/16 09/08/16 09/08/16 23:50 05:46 06:18 WBC 17.8 H RBC 3.58 L Hgb 8.1 L Hct 25.5 L MCV 71 L MCH 23 L MCHC RDW 18.4 H Plt Count Lymph % (Auto) [place] % (Auto) Lymph # [place] # Baso # Seg Neutrophils % Seg Neuts % (Manual) 92.0 H Lymphocytes % (Manual) 6.0 L Monocytes % (Manual) Eosinophils % (Manual) Basophils % (Manual) Nucleated RBC % Seg Neutrophils # Seg Neutrophils # Man 16.4 H Lymphocytes # (Manual) 1.1 L Monocytes # (Manual) Eosinophils # (Manual) Basophils # (Manual) PT INR Fibrinogen dRVVT Confirm Interp Factor V Activity POC ABG pH POC ABG pCO2 34.3 L POC ABG pO2 71 L ABG pO2 ABG HCO3 ABG Base Excess ABG Hemoglobin Oxyhemoglobin Sodium Potassium Chloride Carbon Dioxide BUN Creatinine Glucose POC Glucose 216 H Lactic Acid Calcium Phosphorus Magnesium Direct Bilirubin AST ALT Alkaline Phosphatase Lactate Dehydrogenase Troponin T C-Reactive Protein Total Protein Albumin Prealbumin Triglycerides Cholesterol LDL Cholesterol Direct HDL Cholesterol Urine pH Urine WBC (Auto) Urine Creatinine Urine Total Protein Fluid Total Protein Vancomycin Trough Rheumatoid Factor Complement C4 Miscellaneous Test Crossmatch 09/08/16 09/08/16 09/08/16 06:18 06:51 10:55 WBC RBC Hgb Hct MCV MCH MCHC RDW Plt Count Lymph % (Auto) [place] % (Auto) Lymph # [place] # Baso # Seg Neutrophils % Seg Neuts % (Manual) Lymphocytes % (Manual) Monocytes % (Manual) Eosinophils % (Manual) Basophils % (Manual) Nucleated RBC % Seg Neutrophils # Seg Neutrophils # Man Lymphocytes # (Manual) Monocytes # (Manual) Eosinophils # (Manual) Basophils # (Manual) PT INR Fibrinogen dRVVT Confirm Interp Factor V Activity POC ABG pH POC ABG pCO2 POC ABG pO2 ABG pO2 ABG HCO3 ABG Base Excess ABG Hemoglobin Oxyhemoglobin Sodium 133 L Potassium Chloride 96.9 L Carbon Dioxide 20 L BUN 63 H Creatinine 2.7 H Glucose 195 H POC Glucose 204 H 169 H Lactic Acid Calcium Phosphorus Magnesium Direct Bilirubin AST ALT Alkaline Phosphatase Lactate Dehydrogenase Troponin T C-Reactive Protein Total Protein Albumin Prealbumin Triglycerides Cholesterol LDL Cholesterol Direct HDL Cholesterol Urine pH Urine WBC (Auto) Urine Creatinine Urine Total Protein Fluid Total Protein Vancomycin Trough Rheumatoid Factor Complement C4 Miscellaneous Test Crossmatch 09/08/16 09/08/1617 11:48 11:48 11:48 WBC RBC Hgb Hct MCV MCH MCHC RDW Plt Count Lymph % (Auto) [place] % (Auto) Lymph # [place] # Baso # Seg Neutrophils % Seg Neuts % (Manual) Lymphocytes % (Manual) Monocytes % (Manual) Eosinophils % (Manual) Basophils % (Manual) Nucleated RBC % Seg Neutrophils # Seg Neutrophils # Man Lymphocytes # (Manual) Monocytes # (Manual) Eosinophils # (Manual) Basophils # (Manual) PT INR Fibrinogen 750 H dRVVT Confirm Interp Factor V Activity POC ABG pH POC ABG pCO2 POC ABG pO2 ABG pO2 ABG HCO3 ABG Base Excess ABG Hemoglobin Oxyhemoglobin Sodium Potassium Chloride Carbon Dioxide BUN Creatinine Glucose POC Glucose Lactic Acid Calcium Phosphorus Magnesium Direct Bilirubin AST ALT Alkaline Phosphatase Lactate Dehydrogenase Troponin T C-Reactive Protein 15.70 H Total Protein Albumin Prealbumin Triglycerides Cholesterol LDL Cholesterol Direct HDL Cholesterol Urine pH Urine WBC (Auto) Urine Creatinine Urine Total Protein Fluid Total Protein Vancomycin Trough Rheumatoid Factor 24 H Complement C4 Miscellaneous Test Crossmatch 09/08/16 09/08/16 09/09/16 15:35 18:25 00:24 WBC RBC Hgb Hct MCV MCH MCHC RDW Plt Count Lymph % (Auto) [place] % (Auto) Lymph # [place] # Baso # Seg Neutrophils % Seg Neuts % (Manual) Lymphocytes % (Manual) Monocytes % (Manual) Eosinophils % (Manual) Basophils % (Manual) Nucleated RBC % Seg Neutrophils # Seg Neutrophils # Man Lymphocytes # (Manual) Monocytes # (Manual) Eosinophils # (Manual) Basophils # (Manual) PT INR Fibrinogen dRVVT Confirm Interp Factor V Activity 182 H POC ABG pH POC ABG pCO2 POC ABG pO2 ABG pO2 ABG HCO3 ABG Base Excess ABG Hemoglobin Oxyhemoglobin Sodium Potassium Chloride Carbon Dioxide BUN Creatinine Glucose POC Glucose 184 H 216 H Lactic Acid Calcium Phosphorus Magnesium Direct Bilirubin AST ALT Alkaline Phosphatase Lactate Dehydrogenase Troponin T C-Reactive Protein Total Protein Albumin Prealbumin Triglycerides Cholesterol LDL Cholesterol Direct HDL Cholesterol Urine pH Urine WBC (Auto) Urine Creatinine Urine Total Protein Fluid Total Protein Vancomycin Trough Rheumatoid Factor Complement C4 Miscellaneous Test Crossmatch 09/09/16 09/09/16 09/09/16 03:00 03:00 04:04 WBC 27.9 H RBC Hgb 8.7 L Hct 28.1 L MCV 72 L MCH 22 L MCHC RDW 18.4 H Plt Count 485 H Lymph % (Auto) [place] % (Auto) Lymph # [place] # Baso # Seg Neutrophils % Seg Neuts % (Manual) 77.0 H Lymphocytes % (Manual) 9.0 L Monocytes % (Manual) Eosinophils % (Manual) Basophils % (Manual) Nucleated RBC % Seg Neutrophils # Seg Neutrophils # Man 21.5 H Lymphocytes # (Manual) Monocytes # (Manual) 2.0 H Eosinophils # (Manual) Basophils # (Manual) PT INR Fibrinogen dRVVT Confirm Interp Factor V Activity POC ABG pH POC ABG pCO2 POC ABG pO2 121 H ABG pO2 ABG HCO3 ABG Base Excess ABG Hemoglobin Oxyhemoglobin Sodium 135 L Potassium Chloride 96.3 L Carbon Dioxide 21 L BUN 83 H Creatinine 3.0 H Glucose 135 H POC Glucose Lactic Acid Calcium Phosphorus Magnesium Direct Bilirubin AST ALT Alkaline Phosphatase Lactate Dehydrogenase Troponin T C-Reactive Protein Total Protein Albumin Prealbumin Triglycerides Cholesterol LDL Cholesterol Direct HDL Cholesterol Urine pH Urine WBC (Auto) Urine Creatinine Urine Total Protein Fluid Total Protein Vancomycin Trough Rheumatoid Factor Complement C4 Miscellaneous Test Crossmatch 09/09/16 09/09/16 09/09/16 05:41 11:55 14:13 WBC RBC Hgb Hct MCV MCH MCHC RDW Plt Count Lymph % (Auto) [place] % (Auto) Lymph # [place] # Baso # Seg Neutrophils % Seg Neuts % (Manual) Lymphocytes % (Manual) Monocytes % (Manual) Eosinophils % (Manual) Basophils % (Manual) Nucleated RBC % Seg Neutrophils # Seg Neutrophils # Man Lymphocytes # (Manual) Monocytes # (Manual) Eosinophils # (Manual) Basophils # (Manual) PT INR Fibrinogen dRVVT Confirm Interp Factor V Activity POC ABG pH POC ABG pCO2 POC ABG pO2 ABG pO2 ABG HCO3 ABG Base Excess ABG Hemoglobin Oxyhemoglobin Sodium Potassium Chloride Carbon Dioxide BUN Creatinine Glucose POC Glucose 155 H 186 H Lactic Acid Calcium Phosphorus Magnesium Direct Bilirubin AST ALT Alkaline Phosphatase Lactate Dehydrogenase Troponin T C-Reactive Protein Total Protein Albumin Prealbumin Triglycerides Cholesterol LDL Cholesterol Direct HDL Cholesterol Urine pH Urine WBC (Auto) 25.0 H Urine Creatinine Urine Total Protein Fluid Total Protein Vancomycin Trough Rheumatoid Factor Complement C4 Miscellaneous Test Crossmatch 09/09/16 09/09/16 09/10/16 17:33 23:13 05:09 WBC RBC Hgb Hct MCV MCH MCHC RDW Plt Count Lymph % (Auto) [place] % (Auto) Lymph # [place] # Baso # Seg Neutrophils % Seg Neuts % (Manual) Lymphocytes % (Manual) Monocytes % (Manual) Eosinophils % (Manual) Basophils % (Manual) Nucleated RBC % Seg Neutrophils # Seg Neutrophils # Man Lymphocytes # (Manual) Monocytes # (Manual) Eosinophils # (Manual) Basophils # (Manual) PT INR Fibrinogen dRVVT Confirm Interp Factor V Activity POC ABG pH POC ABG pCO2 POC ABG pO2 74 L ABG pO2 ABG HCO3 ABG Base Excess ABG Hemoglobin Oxyhemoglobin Sodium Potassium Chloride Carbon Dioxide BUN Creatinine Glucose POC Glucose 211 H 215 H Lactic Acid Calcium Phosphorus Magnesium Direct Bilirubin AST ALT Alkaline Phosphatase Lactate Dehydrogenase Troponin T C-Reactive Protein Total Protein Albumin Prealbumin Triglycerides Cholesterol LDL Cholesterol Direct HDL Cholesterol Urine pH Urine WBC (Auto) Urine Creatinine Urine Total Protein Fluid Total Protein Vancomycin Trough Rheumatoid Factor Complement C4 Miscellaneous Test Crossmatch 09/10/16 09/10/16 09/10/16 05:17 05:17 11:31 WBC 15.8 H RBC 3.25 L Hgb 7.3 L Hct 22.9 L MCV 71 L MCH 23 L MCHC RDW 18.4 H Plt Count Lymph % (Auto) [place] % (Auto) Lymph # [place] # Baso # Seg Neutrophils % Seg Neuts % (Manual) 91.0 H Lymphocytes % (Manual) 4.0 L Monocytes % (Manual) Eosinophils % (Manual) Basophils % (Manual) Nucleated RBC % Seg Neutrophils # Seg Neutrophils # Man 14.4 H Lymphocytes # (Manual) 0.6 L Monocytes # (Manual) Eosinophils # (Manual) Basophils # (Manual) PT INR Fibrinogen dRVVT Confirm Interp Factor V Activity POC ABG pH POC ABG pCO2 POC ABG pO2 ABG pO2 ABG HCO3 ABG Base Excess ABG Hemoglobin Oxyhemoglobin Sodium Potassium Chloride Carbon Dioxide 21 L BUN 93 H Creatinine 2.9 H Glucose 146 H POC Glucose 188 H Lactic Acid Calcium 8.1 L Phosphorus Magnesium Direct Bilirubin AST ALT Alkaline Phosphatase Lactate Dehydrogenase Troponin T C-Reactive Protein Total Protein Albumin Prealbumin Triglycerides Cholesterol LDL Cholesterol Direct HDL Cholesterol Urine pH Urine WBC (Auto) Urine Creatinine Urine Total Protein Fluid Total Protein Vancomycin Trough Rheumatoid Factor Complement C4 Miscellaneous Test Crossmatch 09/10/16 09/10/16 09/10/16 13:17 17:20 23:32 WBC RBC Hgb Hct MCV MCH MCHC RDW Plt Count Lymph % (Auto) [place] % (Auto) Lymph # [place] # Baso # Seg Neutrophils % Seg Neuts % (Manual) Lymphocytes % (Manual) Monocytes % (Manual) Eosinophils % (Manual) Basophils % (Manual) Nucleated RBC % Seg Neutrophils # Seg Neutrophils # Man Lymphocytes # (Manual) Monocytes # (Manual) Eosinophils # (Manual) Basophils # (Manual) PT INR Fibrinogen dRVVT Confirm Interp Factor V Activity POC ABG pH POC ABG pCO2 POC ABG pO2 ABG pO2 ABG HCO3 ABG Base Excess ABG Hemoglobin Oxyhemoglobin Sodium Potassium Chloride Carbon Dioxide BUN Creatinine Glucose POC Glucose 199 H 186 H Lactic Acid Calcium Phosphorus Magnesium Direct Bilirubin AST ALT Alkaline Phosphatase Lactate Dehydrogenase Troponin T C-Reactive Protein Total Protein Albumin Prealbumin Triglycerides Cholesterol LDL Cholesterol Direct HDL Cholesterol Urine pH Urine WBC (Auto) Urine Creatinine Urine Total Protein Fluid Total Protein Vancomycin Trough Rheumatoid Factor Complement C4 Miscellaneous Test Crossmatch See Detail 09/11/16 09/11/16 09/11/16 05:10 05:10 05:17 WBC 28.4 H RBC Hgb 9.2 L Hct 29.3 L D MCV 73 L MCH 23 L MCHC RDW 18.9 H Plt Count 452 H Lymph % (Auto) [place] % (Auto) Lymph # [place] # Baso # Seg Neutrophils % Seg Neuts % (Manual) 89.5 H Lymphocytes % (Manual) 2.0 L Monocytes % (Manual) Eosinophils % (Manual) Basophils % (Manual) Nucleated RBC % Seg Neutrophils # Seg Neutrophils # Man 25.4 H Lymphocytes # (Manual) 0.6 L Monocytes # (Manual) 1.3 H Eosinophils # (Manual) Basophils # (Manual) PT INR Fibrinogen dRVVT Confirm Interp Factor V Activity POC ABG pH POC ABG pCO2 POC ABG pO2 ABG pO2 ABG HCO3 ABG Base Excess ABG Hemoglobin Oxyhemoglobin Sodium 136 L Potassium Chloride Carbon Dioxide 18 L BUN 107 H Creatinine 2.6 H Glucose 187 H POC Glucose 230 H Lactic Acid Calcium 8.3 L Phosphorus Magnesium Direct Bilirubin AST ALT Alkaline Phosphatase Lactate Dehydrogenase Troponin T C-Reactive Protein Total Protein Albumin Prealbumin Triglycerides Cholesterol LDL Cholesterol Direct HDL Cholesterol Urine pH Urine WBC (Auto) Urine Creatinine Urine Total Protein Fluid Total Protein Vancomycin Trough Rheumatoid Factor Complement C4 Miscellaneous Test Crossmatch 09/11/16 09/11/16 09/11/16 05:55 12:02 17:32 WBC RBC Hgb Hct MCV MCH MCHC RDW Plt Count Lymph % (Auto) [place] % (Auto) Lymph # [place] # Baso # Seg Neutrophils % Seg Neuts % (Manual) Lymphocytes % (Manual) Monocytes % (Manual) Eosinophils % (Manual) Basophils % (Manual) Nucleated RBC % Seg Neutrophils # Seg Neutrophils # Man Lymphocytes # (Manual) Monocytes # (Manual) Eosinophils # (Manual) Basophils # (Manual) PT INR Fibrinogen dRVVT Confirm Interp Factor V Activity POC ABG pH POC ABG pCO2 33.8 L POC ABG pO2 ABG pO2 ABG HCO3 ABG Base Excess ABG Hemoglobin Oxyhemoglobin Sodium Potassium Chloride Carbon Dioxide BUN Creatinine Glucose POC Glucose 191 H 239 H Lactic Acid Calcium Phosphorus Magnesium Direct Bilirubin AST ALT Alkaline Phosphatase Lactate Dehydrogenase Troponin T C-Reactive Protein Total Protein Albumin Prealbumin Triglycerides Cholesterol LDL Cholesterol Direct HDL Cholesterol Urine pH Urine WBC (Auto) Urine Creatinine Urine Total Protein Fluid Total Protein Vancomycin Trough Rheumatoid Factor Complement C4 Miscellaneous Test Crossmatch 09/11/16 09/12/16 09/12/16 23:52 05:09 05:32 WBC RBC Hgb Hct MCV MCH MCHC RDW Plt Count Lymph % (Auto) [place] % (Auto) Lymph # [place] # Baso # Seg Neutrophils % Seg Neuts % (Manual) Lymphocytes % (Manual) Monocytes % (Manual) Eosinophils % (Manual) Basophils % (Manual) Nucleated RBC % Seg Neutrophils # Seg Neutrophils # Man Lymphocytes # (Manual) Monocytes # (Manual) Eosinophils # (Manual) Basophils # (Manual) PT INR Fibrinogen dRVVT Confirm Interp Factor V Activity POC ABG pH POC ABG pCO2 34.6 L POC ABG pO2 ABG pO2 ABG HCO3 ABG Base Excess ABG Hemoglobin Oxyhemoglobin Sodium Potassium Chloride Carbon Dioxide BUN Creatinine Glucose POC Glucose 265 H 184 H Lactic Acid Calcium Phosphorus Magnesium Direct Bilirubin AST ALT Alkaline Phosphatase Lactate Dehydrogenase Troponin T C-Reactive Protein Total Protein Albumin Prealbumin Triglycerides Cholesterol LDL Cholesterol Direct HDL Cholesterol Urine pH Urine WBC (Auto) Urine Creatinine Urine Total Protein Fluid Total Protein Vancomycin Trough Rheumatoid Factor Complement C4 Miscellaneous Test Crossmatch 09/12/16 09/12/16 09/12/16 06:45 06:45 07:22 WBC 31.7 H RBC 3.54 L Hgb 8.3 L Hct 25.9 L MCV 73 L MCH 23 L MCHC RDW 18.9 H Plt Count Lymph % (Auto) [place] % (Auto) Lymph # [place] # Baso # Seg Neutrophils % Seg Neuts % (Manual) 88.5 H Lymphocytes % (Manual) 4.5 L Monocytes % (Manual) Eosinophils % (Manual) Basophils % (Manual) Nucleated RBC % Seg Neutrophils # Seg Neutrophils # Man 28.1 H Lymphocytes # (Manual) Monocytes # (Manual) 1.0 H Eosinophils # (Manual) Basophils # (Manual) PT INR Fibrinogen dRVVT Confirm Interp Factor V Activity POC ABG pH POC ABG pCO2 POC ABG pO2 ABG pO2 ABG HCO3 ABG Base Excess ABG Hemoglobin Oxyhemoglobin Sodium Potassium Chloride Carbon Dioxide 20 L BUN 115 H Creatinine 2.7 H Glucose 165 H POC Glucose Lactic Acid Calcium 8.0 L Phosphorus Magnesium Direct Bilirubin AST ALT Alkaline Phosphatase Lactate Dehydrogenase Troponin T C-Reactive Protein Total Protein Albumin Prealbumin Triglycerides 217 H Cholesterol LDL Cholesterol Direct HDL Cholesterol Urine pH Urine WBC (Auto) Urine Creatinine Urine Total Protein Fluid Total Protein Vancomycin Trough Rheumatoid Factor Complement C4 Miscellaneous Test Crossmatch 09/12/16 09/12/16 09/12/16 07:22 09:59 12:21 WBC RBC Hgb Hct MCV MCH MCHC RDW Plt Count Lymph % (Auto) [place] % (Auto) Lymph # [place] # Baso # Seg Neutrophils % Seg Neuts % (Manual) Lymphocytes % (Manual) Monocytes % (Manual) Eosinophils % (Manual) Basophils % (Manual) Nucleated RBC % Seg Neutrophils # Seg Neutrophils # Man Lymphocytes # (Manual) Monocytes # (Manual) Eosinophils # (Manual) Basophils # (Manual) PT INR Fibrinogen dRVVT Confirm Interp Positive H Factor V Activity POC ABG pH POC ABG pCO2 POC ABG pO2 ABG pO2 ABG HCO3 ABG Base Excess ABG Hemoglobin Oxyhemoglobin Sodium Potassium Chloride Carbon Dioxide BUN Creatinine Glucose POC Glucose 224 H Lactic Acid Calcium Phosphorus Magnesium Direct Bilirubin AST ALT Alkaline Phosphatase Lactate Dehydrogenase Troponin T C-Reactive Protein 1.70 H Total Protein Albumin Prealbumin Triglycerides Cholesterol LDL Cholesterol Direct HDL Cholesterol Urine pH Urine WBC (Auto) Urine Creatinine Urine Total Protein Fluid Total Protein Vancomycin Trough Rheumatoid Factor Complement C4 Miscellaneous Test Crossmatch 09/12/16 09/12/16 09/13/16 16:51 23:28 04:00 WBC 45.0 H* RBC Hgb 9.4 L Hct MCV 75 L MCH 23 L MCHC RDW 19.0 H Plt Count 470 H Lymph % (Auto) [place] % (Auto) Lymph # [place] # Baso # Seg Neutrophils % Seg Neuts % (Manual) 89.0 H Lymphocytes % (Manual) 5.0 L Monocytes % (Manual) Eosinophils % (Manual) Basophils % (Manual) Nucleated RBC % Seg Neutrophils # Seg Neutrophils # Man 40.1 H Lymphocytes # (Manual) Monocytes # (Manual) Eosinophils # (Manual) Basophils # (Manual) PT INR Fibrinogen dRVVT Confirm Interp Factor V Activity POC ABG pH POC ABG pCO2 POC ABG pO2 ABG pO2 ABG HCO3 ABG Base Excess ABG Hemoglobin Oxyhemoglobin Sodium Potassium Chloride Carbon Dioxide BUN Creatinine Glucose POC Glucose 169 H 150 H Lactic Acid Calcium Phosphorus Magnesium Direct Bilirubin AST ALT Alkaline Phosphatase Lactate Dehydrogenase Troponin T C-Reactive Protein Total Protein Albumin Prealbumin Triglycerides Cholesterol LDL Cholesterol Direct HDL Cholesterol Urine pH Urine WBC (Auto) Urine Creatinine Urine Total Protein Fluid Total Protein Vancomycin Trough Rheumatoid Factor Complement C4 Miscellaneous Test Crossmatch 09/13/16 09/13/16 09/13/16 04:00 11:26 17:31 WBC RBC Hgb Hct MCV MCH MCHC RDW Plt Count Lymph % (Auto) [place] % (Auto) Lymph # [place] # Baso # Seg Neutrophils % Seg Neuts % (Manual) Lymphocytes % (Manual) Monocytes % (Manual) Eosinophils % (Manual) Basophils % (Manual) Nucleated RBC % Seg Neutrophils # Seg Neutrophils # Man Lymphocytes # (Manual) Monocytes # (Manual) Eosinophils # (Manual) Basophils # (Manual) PT INR Fibrinogen dRVVT Confirm Interp Factor V Activity POC ABG pH POC ABG pCO2 POC ABG pO2 ABG pO2 ABG HCO3 ABG Base Excess ABG Hemoglobin Oxyhemoglobin Sodium Potassium Chloride Carbon Dioxide 20 L BUN 116 H Creatinine 3.0 H Glucose 172 H POC Glucose 140 H 183 H Lactic Acid Calcium Phosphorus Magnesium Direct Bilirubin AST ALT Alkaline Phosphatase Lactate Dehydrogenase Troponin T C-Reactive Protein Total Protein 6.2 L Albumin 2.9 L Prealbumin Triglycerides Cholesterol LDL Cholesterol Direct HDL Cholesterol Urine pH Urine WBC (Auto) Urine Creatinine Urine Total Protein Fluid Total Protein Vancomycin Trough Rheumatoid Factor Complement C4 Miscellaneous Test Crossmatch 09/13/16 09/14/16 09/14/16 23:23 04:06 04:07 WBC 29.4 H RBC Hgb 8.9 L Hct 27.3 L MCV 75 L MCH 24 L MCHC RDW 19.1 H Plt Count Lymph % (Auto) [place] % (Auto) Lymph # [place] # Baso # Seg Neutrophils % Seg Neuts % (Manual) 84.0 H Lymphocytes % (Manual) 6.0 L Monocytes % (Manual) 9.0 H Eosinophils % (Manual) Basophils % (Manual) Nucleated RBC % Seg Neutrophils # Seg Neutrophils # Man 24.7 H Lymphocytes # (Manual) Monocytes # (Manual) 2.6 H Eosinophils # (Manual) Basophils # (Manual) PT INR Fibrinogen dRVVT Confirm Interp Factor V Activity POC ABG pH 7.342 L POC ABG pCO2 POC ABG pO2 116 H ABG pO2 ABG HCO3 ABG Base Excess ABG Hemoglobin Oxyhemoglobin Sodium Potassium Chloride Carbon Dioxide BUN Creatinine Glucose POC Glucose 154 H Lactic Acid Calcium Phosphorus Magnesium Direct Bilirubin AST ALT Alkaline Phosphatase Lactate Dehydrogenase Troponin T C-Reactive Protein Total Protein Albumin Prealbumin Triglycerides Cholesterol LDL Cholesterol Direct HDL Cholesterol Urine pH Urine WBC (Auto) Urine Creatinine Urine Total Protein Fluid Total Protein Vancomycin Trough Rheumatoid Factor Complement C4 Miscellaneous Test Crossmatch 09/14/16 09/14/16 09/14/16 04:07 05:29 12:19 WBC RBC Hgb Hct MCV MCH MCHC RDW Plt Count Lymph % (Auto) [place] % (Auto) Lymph # [place] # Baso # Seg Neutrophils % Seg Neuts % (Manual) Lymphocytes % (Manual) Monocytes % (Manual) Eosinophils % (Manual) Basophils % (Manual) Nucleated RBC % Seg Neutrophils # Seg Neutrophils # Man Lymphocytes # (Manual) Monocytes # (Manual) Eosinophils # (Manual) Basophils # (Manual) PT INR Fibrinogen dRVVT Confirm Interp Factor V Activity POC ABG pH POC ABG pCO2 POC ABG pO2 ABG pO2 ABG HCO3 ABG Base Excess ABG Hemoglobin Oxyhemoglobin Sodium 136 L Potassium Chloride Carbon Dioxide 18 L BUN 121 H Creatinine 2.8 H Glucose 214 H POC Glucose 239 H 181 H Lactic Acid Calcium Phosphorus Magnesium Direct Bilirubin AST ALT Alkaline Phosphatase Lactate Dehydrogenase Troponin T C-Reactive Protein Total Protein Albumin Prealbumin Triglycerides Cholesterol LDL Cholesterol Direct HDL Cholesterol Urine pH Urine WBC (Auto) Urine Creatinine Urine Total Protein Fluid Total Protein Vancomycin Trough Rheumatoid Factor Complement C4 Miscellaneous Test Crossmatch 09/14/16 09/14/16 09/15/16 18:12 23:37 05:00 WBC 26.1 H RBC 3.05 L Hgb 7.2 L Hct 22.9 L MCV 75 L MCH 24 L MCHC RDW 19.0 H Plt Count Lymph % (Auto) [place] % (Auto) Lymph # [place] # Baso # Seg Neutrophils % Seg Neuts % (Manual) Lymphocytes % (Manual) Monocytes % (Manual) Eosinophils % (Manual) Basophils % (Manual) Nucleated RBC % Seg Neutrophils # Seg Neutrophils # Man Lymphocytes # (Manual) Monocytes # (Manual) Eosinophils # (Manual) Basophils # (Manual) PT INR Fibrinogen dRVVT Confirm Interp Factor V Activity POC ABG pH POC ABG pCO2 POC ABG pO2 ABG pO2 ABG HCO3 ABG Base Excess ABG Hemoglobin Oxyhemoglobin Sodium Potassium Chloride Carbon Dioxide BUN Creatinine Glucose POC Glucose 266 H 154 H Lactic Acid Calcium Phosphorus Magnesium Direct Bilirubin AST ALT Alkaline Phosphatase Lactate Dehydrogenase Troponin T C-Reactive Protein Total Protein Albumin Prealbumin Triglycerides Cholesterol LDL Cholesterol Direct HDL Cholesterol Urine pH Urine WBC (Auto) Urine Creatinine Urine Total Protein Fluid Total Protein Vancomycin Trough Rheumatoid Factor Complement C4 Miscellaneous Test Crossmatch 09/15/16 09/15/16 09/15/16 05:00 05:17 12:45 WBC RBC Hgb Hct MCV MCH MCHC RDW Plt Count Lymph % (Auto) [place] % (Auto) Lymph # [place] # Baso # Seg Neutrophils % Seg Neuts % (Manual) Lymphocytes % (Manual) Monocytes % (Manual) Eosinophils % (Manual) Basophils % (Manual) Nucleated RBC % Seg Neutrophils # Seg Neutrophils # Man Lymphocytes # (Manual) Monocytes # (Manual) Eosinophils # (Manual) Basophils # (Manual) PT INR Fibrinogen dRVVT Confirm Interp Factor V Activity POC ABG pH POC ABG pCO2 POC ABG pO2 ABG pO2 ABG HCO3 ABG Base Excess ABG Hemoglobin Oxyhemoglobin Sodium Potassium 5.2 H Chloride Carbon Dioxide 18 L BUN 139 H Creatinine 3.7 H Glucose 227 H POC Glucose 226 H 244 H Lactic Acid Calcium 8.3 L Phosphorus Magnesium Direct Bilirubin AST ALT Alkaline Phosphatase Lactate Dehydrogenase Troponin T C-Reactive Protein Total Protein Albumin Prealbumin Triglycerides Cholesterol LDL Cholesterol Direct HDL Cholesterol Urine pH Urine WBC (Auto) Urine Creatinine Urine Total Protein Fluid Total Protein Vancomycin Trough Rheumatoid Factor Complement C4 Miscellaneous Test Crossmatch 09/15/16 09/15/16 09/15/16 14:32 17:33 23:35 WBC RBC Hgb Hct MCV MCH MCHC RDW Plt Count Lymph % (Auto) [place] % (Auto) Lymph # [place] # Baso # Seg Neutrophils % Seg Neuts % (Manual) Lymphocytes % (Manual) Monocytes % (Manual) Eosinophils % (Manual) Basophils % (Manual) Nucleated RBC % Seg Neutrophils # Seg Neutrophils # Man Lymphocytes # (Manual) Monocytes # (Manual) Eosinophils # (Manual) Basophils # (Manual) PT INR Fibrinogen dRVVT Confirm Interp Factor V Activity POC ABG pH POC ABG pCO2 27.7 L POC ABG pO2 120 H ABG pO2 ABG HCO3 ABG Base Excess ABG Hemoglobin Oxyhemoglobin Sodium Potassium Chloride Carbon Dioxide BUN Creatinine Glucose POC Glucose 232 H 167 H Lactic Acid Calcium Phosphorus Magnesium Direct Bilirubin AST ALT Alkaline Phosphatase Lactate Dehydrogenase Troponin T C-Reactive Protein Total Protein Albumin Prealbumin Triglycerides Cholesterol LDL Cholesterol Direct HDL Cholesterol Urine pH Urine WBC (Auto) Urine Creatinine Urine Total Protein Fluid Total Protein Vancomycin Trough Rheumatoid Factor Complement C4 Miscellaneous Test Crossmatch 09/16/16 09/16/16 09/16/16 03:58 10:27 10:27 WBC 19.0 H RBC 2.77 L Hgb 6.5 L Hct 20.9 L MCV 76 L MCH 23 L MCHC RDW 19.3 H Plt Count Lymph % (Auto) 11.0 L [place] % (Auto) Lymph # [place] # 1.1 H Baso # Seg Neutrophils % 82.5 H Seg Neuts % (Manual) Lymphocytes % (Manual) Monocytes % (Manual) Eosinophils % (Manual) Basophils % (Manual) Nucleated RBC % Seg Neutrophils # 15.7 H Seg Neutrophils # Man Lymphocytes # (Manual) Monocytes # (Manual) Eosinophils # (Manual) Basophils # (Manual) PT INR Fibrinogen dRVVT Confirm Interp Factor V Activity POC ABG pH POC ABG pCO2 POC ABG pO2 ABG pO2 ABG HCO3 ABG Base Excess ABG Hemoglobin Oxyhemoglobin Sodium Potassium Chloride 109.3 H Carbon Dioxide 18 L BUN 139 H Creatinine 4.1 H Glucose 144 H POC Glucose 146 H Lactic Acid Calcium 8.1 L Phosphorus Magnesium Direct Bilirubin AST ALT Alkaline Phosphatase Lactate Dehydrogenase Troponin T C-Reactive Protein Total Protein Albumin Prealbumin Triglycerides Cholesterol LDL Cholesterol Direct HDL Cholesterol Urine pH Urine WBC (Auto) Urine Creatinine Urine Total Protein Fluid Total Protein Vancomycin Trough Rheumatoid Factor Complement C4 Miscellaneous Test Crossmatch 09/16/16 09/16/16 09/16/16 12:04 12:10 13:55 WBC RBC Hgb Hct MCV MCH MCHC RDW Plt Count Lymph % (Auto) [place] % (Auto) Lymph # [place] # Baso # Seg Neutrophils % Seg Neuts % (Manual) Lymphocytes % (Manual) Monocytes % (Manual) Eosinophils % (Manual) Basophils % (Manual) Nucleated RBC % Seg Neutrophils # Seg Neutrophils # Man Lymphocytes # (Manual) Monocytes # (Manual) Eosinophils # (Manual) Basophils # (Manual) PT INR Fibrinogen dRVVT Confirm Interp Factor V Activity POC ABG pH POC ABG pCO2 32.9 L POC ABG pO2 ABG pO2 ABG HCO3 ABG Base Excess ABG Hemoglobin Oxyhemoglobin Sodium Potassium Chloride Carbon Dioxide BUN Creatinine Glucose POC Glucose 185 H Lactic Acid Calcium Phosphorus Magnesium Direct Bilirubin AST ALT Alkaline Phosphatase Lactate Dehydrogenase Troponin T C-Reactive Protein Total Protein Albumin Prealbumin Triglycerides Cholesterol LDL Cholesterol Direct HDL Cholesterol Urine pH Urine WBC (Auto) Urine Creatinine Urine Total Protein Fluid Total Protein Vancomycin Trough Rheumatoid Factor Complement C4 Miscellaneous Test Crossmatch See Detail 09/16/16 09/16/16 09/16/16 17:55 19:19 23:48 WBC RBC Hgb Hct MCV MCH MCHC RDW Plt Count Lymph % (Auto) [place] % (Auto) Lymph # [place] # Baso # Seg Neutrophils % Seg Neuts % (Manual) Lymphocytes % (Manual) Monocytes % (Manual) Eosinophils % (Manual) Basophils % (Manual) Nucleated RBC % Seg Neutrophils # Seg Neutrophils # Man Lymphocytes # (Manual) Monocytes # (Manual) Eosinophils # (Manual) Basophils # (Manual) PT INR Fibrinogen dRVVT Confirm Interp Factor V Activity POC ABG pH POC ABG pCO2 POC ABG pO2 ABG pO2 ABG HCO3 ABG Base Excess ABG Hemoglobin Oxyhemoglobin Sodium Potassium Chloride Carbon Dioxide BUN Creatinine Glucose POC Glucose 222 H 107 H Lactic Acid Calcium Phosphorus Magnesium Direct Bilirubin AST ALT Alkaline Phosphatase Lactate Dehydrogenase Troponin T C-Reactive Protein Total Protein Albumin Prealbumin Triglycerides Cholesterol LDL Cholesterol Direct HDL Cholesterol Urine pH Urine WBC (Auto) Urine Creatinine 47.4 H Urine Total Protein 16 H Fluid Total Protein Vancomycin Trough Rheumatoid Factor Complement C4 Miscellaneous Test Crossmatch 09/17/16 09/17/16 09/17/16 03:45 03:45 04:55 WBC 19.6 H RBC 3.41 L Hgb 8.5 L Hct 26.7 L MCV 78 L MCH 25 L MCHC RDW 19.9 H Plt Count Lymph % (Auto) 9.3 L [place] % (Auto) Lymph # [place] # 1.2 H Baso # Seg Neutrophils % 83.9 H Seg Neuts % (Manual) Lymphocytes % (Manual) Monocytes % (Manual) Eosinophils % (Manual) Basophils % (Manual) Nucleated RBC % Seg Neutrophils # 16.4 H Seg Neutrophils # Man Lymphocytes # (Manual) Monocytes # (Manual) Eosinophils # (Manual) Basophils # (Manual) PT INR Fibrinogen dRVVT Confirm Interp Factor V Activity POC ABG pH POC ABG pCO2 POC ABG pO2 ABG pO2 ABG HCO3 ABG Base Excess ABG Hemoglobin Oxyhemoglobin Sodium 146 H Potassium 5.1 H Chloride 110.9 H Carbon Dioxide 16 L BUN 146 H Creatinine 4.0 H Glucose 108 H POC Glucose 133 H Lactic Acid Calcium Phosphorus Magnesium 3.00 H Direct Bilirubin AST ALT Alkaline Phosphatase Lactate Dehydrogenase Troponin T C-Reactive Protein Total Protein Albumin Prealbumin Triglycerides Cholesterol LDL Cholesterol Direct HDL Cholesterol Urine pH Urine WBC (Auto) Urine Creatinine Urine Total Protein Fluid Total Protein Vancomycin Trough Rheumatoid Factor Complement C4 Miscellaneous Test Crossmatch 09/17/16 09/17/16 09/17/16 11:15 17:33 23:47 WBC RBC Hgb Hct MCV MCH MCHC RDW Plt Count Lymph % (Auto) [place] % (Auto) Lymph # [place] # Baso # Seg Neutrophils % Seg Neuts % (Manual) Lymphocytes % (Manual) Monocytes % (Manual) Eosinophils % (Manual) Basophils % (Manual) Nucleated RBC % Seg Neutrophils # Seg Neutrophils # Man Lymphocytes # (Manual) Monocytes # (Manual) Eosinophils # (Manual) Basophils # (Manual) PT INR Fibrinogen dRVVT Confirm Interp Factor V Activity POC ABG pH POC ABG pCO2 POC ABG pO2 ABG pO2 ABG HCO3 ABG Base Excess ABG Hemoglobin Oxyhemoglobin Sodium Potassium Chloride Carbon Dioxide BUN Creatinine Glucose POC Glucose 176 H 246 H 148 H Lactic Acid Calcium Phosphorus Magnesium Direct Bilirubin AST ALT Alkaline Phosphatase Lactate Dehydrogenase Troponin T C-Reactive Protein Total Protein Albumin Prealbumin Triglycerides Cholesterol LDL Cholesterol Direct HDL Cholesterol Urine pH Urine WBC (Auto) Urine Creatinine Urine Total Protein Fluid Total Protein Vancomycin Trough Rheumatoid Factor Complement C4 Miscellaneous Test Crossmatch 09/18/16 09/18/16 09/18/16 05:33 08:31 08:31 WBC 18.0 H RBC 3.17 L Hgb 9.0 L Hct 25.7 L MCV MCH MCHC 35 H RDW 20.4 H Plt Count Lymph % (Auto) [place] % (Auto) Lymph # [place] # Baso # Seg Neutrophils % Seg Neuts % (Manual) Lymphocytes % (Manual) Monocytes % (Manual) Eosinophils % (Manual) Basophils % (Manual) Nucleated RBC % Seg Neutrophils # Seg Neutrophils # Man Lymphocytes # (Manual) Monocytes # (Manual) Eosinophils # (Manual) Basophils # (Manual) PT INR Fibrinogen dRVVT Confirm Interp Factor V Activity POC ABG pH POC ABG pCO2 POC ABG pO2 ABG pO2 ABG HCO3 ABG Base Excess ABG Hemoglobin Oxyhemoglobin Sodium Potassium Chloride Carbon Dioxide 15 L BUN 124 H Creatinine 3.8 H Glucose POC Glucose 120 H Lactic Acid Calcium 8.1 L Phosphorus Magnesium Direct Bilirubin AST ALT Alkaline Phosphatase Lactate Dehydrogenase Troponin T C-Reactive Protein Total Protein Albumin Prealbumin Triglycerides Cholesterol LDL Cholesterol Direct HDL Cholesterol Urine pH Urine WBC (Auto) Urine Creatinine Urine Total Protein Fluid Total Protein Vancomycin Trough Rheumatoid Factor Complement C4 Miscellaneous Test Crossmatch 09/18/16 09/18/16 09/18/16 12:03 15:34 17:50 WBC RBC Hgb Hct MCV MCH MCHC RDW Plt Count Lymph % (Auto) [place] % (Auto) Lymph # [place] # Baso # Seg Neutrophils % Seg Neuts % (Manual) Lymphocytes % (Manual) Monocytes % (Manual) Eosinophils % (Manual) Basophils % (Manual) Nucleated RBC % Seg Neutrophils # Seg Neutrophils # Man Lymphocytes # (Manual) Monocytes # (Manual) Eosinophils # (Manual) Basophils # (Manual) PT INR Fibrinogen dRVVT Confirm Interp Factor V Activity POC ABG pH POC ABG pCO2 25.7 L POC ABG pO2 66 L ABG pO2 ABG HCO3 ABG Base Excess ABG Hemoglobin Oxyhemoglobin Sodium Potassium Chloride Carbon Dioxide BUN Creatinine Glucose POC Glucose 156 H 220 H Lactic Acid Calcium Phosphorus Magnesium Direct Bilirubin AST ALT Alkaline Phosphatase Lactate Dehydrogenase Troponin T C-Reactive Protein Total Protein Albumin Prealbumin Triglycerides Cholesterol LDL Cholesterol Direct HDL Cholesterol Urine pH Urine WBC (Auto) Urine Creatinine Urine Total Protein Fluid Total Protein Vancomycin Trough Rheumatoid Factor Complement C4 Miscellaneous Test Crossmatch 09/19/16 09/19/16 09/19/16 06:21 09:50 09:50 WBC 17.1 H RBC 3.49 L Hgb 9.0 L Hct 28.1 L MCV MCH 26 L MCHC RDW 20.8 H Plt Count Lymph % (Auto) 11.5 L [place] % (Auto) 7.5 H Lymph # [place] # 1.3 H Baso # Seg Neutrophils % 79.8 H Seg Neuts % (Manual) Lymphocytes % (Manual) Monocytes % (Manual) Eosinophils % (Manual) Basophils % (Manual) Nucleated RBC % Seg Neutrophils # 13.7 H Seg Neutrophils # Man Lymphocytes # (Manual) Monocytes # (Manual) Eosinophils # (Manual) Basophils # (Manual) PT INR Fibrinogen dRVVT Confirm Interp Factor V Activity POC ABG pH POC ABG pCO2 POC ABG pO2 ABG pO2 ABG HCO3 ABG Base Excess ABG Hemoglobin Oxyhemoglobin Sodium Potassium Chloride 108.6 H Carbon Dioxide 15 L BUN 125 H Creatinine 4.1 H Glucose 124 H POC Glucose 119 H Lactic Acid Calcium Phosphorus Magnesium Direct Bilirubin AST ALT Alkaline Phosphatase Lactate Dehydrogenase Troponin T C-Reactive Protein Total Protein Albumin Prealbumin Triglycerides Cholesterol LDL Cholesterol Direct HDL Cholesterol Urine pH Urine WBC (Auto) Urine Creatinine Urine Total Protein Fluid Total Protein Vancomycin Trough Rheumatoid Factor Complement C4 Miscellaneous Test Crossmatch 09/19/16 09/19/16 09/19/16 11:25 17:53 23:36 WBC RBC Hgb Hct MCV MCH MCHC RDW Plt Count Lymph % (Auto) [place] % (Auto) Lymph # [place] # Baso # Seg Neutrophils % Seg Neuts % (Manual) Lymphocytes % (Manual) Monocytes % (Manual) Eosinophils % (Manual) Basophils % (Manual) Nucleated RBC % Seg Neutrophils # Seg Neutrophils # Man Lymphocytes # (Manual) Monocytes # (Manual) Eosinophils # (Manual) Basophils # (Manual) PT INR Fibrinogen dRVVT Confirm Interp Factor V Activity POC ABG pH POC ABG pCO2 POC ABG pO2 ABG pO2 ABG HCO3 ABG Base Excess ABG Hemoglobin Oxyhemoglobin Sodium Potassium Chloride Carbon Dioxide BUN Creatinine Glucose POC Glucose 160 H 245 H 121 H Lactic Acid Calcium Phosphorus Magnesium Direct Bilirubin AST ALT Alkaline Phosphatase Lactate Dehydrogenase Troponin T C-Reactive Protein Total Protein Albumin Prealbumin Triglycerides Cholesterol LDL Cholesterol Direct HDL Cholesterol Urine pH Urine WBC (Auto) Urine Creatinine Urine Total Protein Fluid Total Protein Vancomycin Trough Rheumatoid Factor Complement C4 Miscellaneous Test Crossmatch 09/20/16 09/20/16 09/20/16 04:10 04:10 04:10 WBC 17.0 H RBC 3.21 L Hgb 8.2 L Hct 25.5 L MCV MCH 26 L MCHC RDW 20.9 H Plt Count Lymph % (Auto) [place] % (Auto) Lymph # [place] # Baso # Seg Neutrophils % Seg Neuts % (Manual) Lymphocytes % (Manual) Monocytes % (Manual) Eosinophils % (Manual) Basophils % (Manual) Nucleated RBC % Seg Neutrophils # Seg Neutrophils # Man Lymphocytes # (Manual) Monocytes # (Manual) Eosinophils # (Manual) Basophils # (Manual) PT INR Fibrinogen dRVVT Confirm Interp Factor V Activity POC ABG pH POC ABG pCO2 POC ABG pO2 ABG pO2 ABG HCO3 ABG Base Excess ABG Hemoglobin Oxyhemoglobin Sodium Potassium Chloride 111.0 H Carbon Dioxide 16 L BUN 129 H Creatinine 3.7 H Glucose 115 H POC Glucose Lactic Acid Calcium 8.2 L Phosphorus Magnesium Direct Bilirubin AST ALT Alkaline Phosphatase Lactate Dehydrogenase Troponin T C-Reactive Protein Total Protein Albumin Prealbumin Triglycerides 243 H Cholesterol LDL Cholesterol Direct HDL Cholesterol Urine pH Urine WBC (Auto) Urine Creatinine Urine Total Protein Fluid Total Protein Vancomycin Trough Rheumatoid Factor Complement C4 Miscellaneous Test Crossmatch 09/20/16 09/20/16 09/20/16 05:40 11:52 16:50 WBC RBC Hgb Hct MCV MCH MCHC RDW Plt Count Lymph % (Auto) [place] % (Auto) Lymph # [place] # Baso # Seg Neutrophils % Seg Neuts % (Manual) Lymphocytes % (Manual) Monocytes % (Manual) Eosinophils % (Manual) Basophils % (Manual) Nucleated RBC % Seg Neutrophils # Seg Neutrophils # Man Lymphocytes # (Manual) Monocytes # (Manual) Eosinophils # (Manual) Basophils # (Manual) PT INR Fibrinogen dRVVT Confirm Interp Factor V Activity POC ABG pH POC ABG pCO2 POC ABG pO2 ABG pO2 ABG HCO3 ABG Base Excess ABG Hemoglobin Oxyhemoglobin Sodium Potassium Chloride Carbon Dioxide BUN Creatinine Glucose POC Glucose 131 H 183 H 236 H Lactic Acid Calcium Phosphorus Magnesium Direct Bilirubin AST ALT Alkaline Phosphatase Lactate Dehydrogenase Troponin T C-Reactive Protein Total Protein Albumin Prealbumin Triglycerides Cholesterol LDL Cholesterol Direct HDL Cholesterol Urine pH Urine WBC (Auto) Urine Creatinine Urine Total Protein Fluid Total Protein Vancomycin Trough Rheumatoid Factor Complement C4 Miscellaneous Test Crossmatch 09/20/16 09/21/16 09/21/16 23:51 03:30 04:44 WBC RBC Hgb Hct MCV MCH MCHC RDW Plt Count Lymph % (Auto) [place] % (Auto) Lymph # [place] # Baso # Seg Neutrophils % Seg Neuts % (Manual) Lymphocytes % (Manual) Monocytes % (Manual) Eosinophils % (Manual) Basophils % (Manual) Nucleated RBC % Seg Neutrophils # Seg Neutrophils # Man Lymphocytes # (Manual) Monocytes # (Manual) Eosinophils # (Manual) Basophils # (Manual) PT INR Fibrinogen dRVVT Confirm Interp Factor V Activity POC ABG pH POC ABG pCO2 POC ABG pO2 ABG pO2 ABG HCO3 ABG Base Excess ABG Hemoglobin Oxyhemoglobin Sodium Potassium Chloride Carbon Dioxide BUN Creatinine Glucose POC Glucose 114 H 141 H Lactic Acid Calcium Phosphorus Magnesium 2.70 H Direct Bilirubin AST ALT Alkaline Phosphatase Lactate Dehydrogenase Troponin T C-Reactive Protein Total Protein Albumin Prealbumin Triglycerides Cholesterol LDL Cholesterol Direct HDL Cholesterol Urine pH Urine WBC (Auto) Urine Creatinine Urine Total Protein Fluid Total Protein Vancomycin Trough Rheumatoid Factor Complement C4 Miscellaneous Test Crossmatch 09/21/16 09/21/16 09/21/16 07:45 07:45 10:01 WBC 13.8 H RBC 2.94 L Hgb 7.5 L Hct 23.5 L MCV MCH 26 L MCHC RDW 21.2 H Plt Count Lymph % (Auto) 6.9 L [place] % (Auto) 9.4 H Lymph # 0.9 L [place] # 1.3 H Baso # Seg Neutrophils % 83.2 H Seg Neuts % (Manual) Lymphocytes % (Manual) Monocytes % (Manual) Eosinophils % (Manual) Basophils % (Manual) Nucleated RBC % Seg Neutrophils # 11.5 H Seg Neutrophils # Man Lymphocytes # (Manual) Monocytes # (Manual) Eosinophils # (Manual) Basophils # (Manual) PT INR Fibrinogen dRVVT Confirm Interp Factor V Activity POC ABG pH 7.308 L POC ABG pCO2 31.9 L POC ABG pO2 148 H ABG pO2 ABG HCO3 ABG Base Excess ABG Hemoglobin Oxyhemoglobin Sodium 147 H Potassium Chloride 114.2 H Carbon Dioxide 15 L BUN 120 H Creatinine 3.9 H Glucose 156 H POC Glucose Lactic Acid Calcium 8.2 L Phosphorus Magnesium Direct Bilirubin AST ALT Alkaline Phosphatase Lactate Dehydrogenase Troponin T C-Reactive Protein Total Protein Albumin Prealbumin Triglycerides Cholesterol LDL Cholesterol Direct HDL Cholesterol Urine pH Urine WBC (Auto) Urine Creatinine Urine Total Protein Fluid Total Protein Vancomycin Trough Rheumatoid Factor Complement C4 Miscellaneous Test Crossmatch 09/21/16 09/21/16 09/21/16 12:00 12:03 13:00 WBC RBC Hgb Hct MCV MCH MCHC RDW Plt Count Lymph % (Auto) [place] % (Auto) Lymph # [place] # Baso # Seg Neutrophils % Seg Neuts % (Manual) Lymphocytes % (Manual) Monocytes % (Manual) Eosinophils % (Manual) Basophils % (Manual) Nucleated RBC % Seg Neutrophils # Seg Neutrophils # Man Lymphocytes # (Manual) Monocytes # (Manual) Eosinophils # (Manual) Basophils # (Manual) PT INR Fibrinogen dRVVT Confirm Interp Factor V Activity POC ABG pH POC ABG pCO2 POC ABG pO2 ABG pO2 ABG HCO3 ABG Base Excess ABG Hemoglobin Oxyhemoglobin Sodium Potassium Chloride Carbon Dioxide BUN Creatinine Glucose POC Glucose 163 H Lactic Acid Calcium Phosphorus Magnesium Direct Bilirubin AST ALT Alkaline Phosphatase Lactate Dehydrogenase Troponin T C-Reactive Protein Total Protein Albumin Prealbumin Triglycerides Cholesterol LDL Cholesterol Direct HDL Cholesterol Urine pH Urine WBC (Auto) Urine Creatinine 54.8 H Urine Total Protein Fluid Total Protein Vancomycin Trough 2.3 L Rheumatoid Factor Complement C4 Miscellaneous Test Crossmatch 09/21/16 09/21/16 09/22/16 16:51 23:17 06:27 WBC RBC Hgb Hct MCV MCH MCHC RDW Plt Count Lymph % (Auto) [place] % (Auto) Lymph # [place] # Baso # Seg Neutrophils % Seg Neuts % (Manual) Lymphocytes % (Manual) Monocytes % (Manual) Eosinophils % (Manual) Basophils % (Manual) Nucleated RBC % Seg Neutrophils # Seg Neutrophils # Man Lymphocytes # (Manual) Monocytes # (Manual) Eosinophils # (Manual) Basophils # (Manual) PT INR Fibrinogen dRVVT Confirm Interp Factor V Activity POC ABG pH POC ABG pCO2 POC ABG pO2 ABG pO2 ABG HCO3 ABG Base Excess ABG Hemoglobin Oxyhemoglobin Sodium Potassium Chloride Carbon Dioxide BUN Creatinine Glucose POC Glucose 206 H 114 H 115 H Lactic Acid Calcium Phosphorus Magnesium Direct Bilirubin AST ALT Alkaline Phosphatase Lactate Dehydrogenase Troponin T C-Reactive Protein Total Protein Albumin Prealbumin Triglycerides Cholesterol LDL Cholesterol Direct HDL Cholesterol Urine pH Urine WBC (Auto) Urine Creatinine Urine Total Protein Fluid Total Protein Vancomycin Trough Rheumatoid Factor Complement C4 Miscellaneous Test Crossmatch 09/22/16 09/22/16 09/22/16 07:50 07:50 12:00 WBC 17.8 H RBC 3.04 L Hgb 8.0 L Hct 24.7 L MCV MCH 26 L MCHC RDW 21.6 H Plt Count Lymph % (Auto) [place] % (Auto) Lymph # [place] # Baso # Seg Neutrophils % Seg Neuts % (Manual) Lymphocytes % (Manual) Monocytes % (Manual) Eosinophils % (Manual) Basophils % (Manual) Nucleated RBC % Seg Neutrophils # Seg Neutrophils # Man Lymphocytes # (Manual) Monocytes # (Manual) Eosinophils # (Manual) Basophils # (Manual) PT INR Fibrinogen dRVVT Confirm Interp Factor V Activity POC ABG pH POC ABG pCO2 POC ABG pO2 ABG pO2 ABG HCO3 ABG Base Excess ABG Hemoglobin Oxyhemoglobin Sodium 150 H Potassium Chloride 118.2 H Carbon Dioxide 14 L BUN 111 H Creatinine 3.7 H Glucose 157 H POC Glucose 183 H Lactic Acid Calcium Phosphorus Magnesium Direct Bilirubin AST ALT Alkaline Phosphatase Lactate Dehydrogenase Troponin T C-Reactive Protein Total Protein Albumin Prealbumin Triglycerides Cholesterol LDL Cholesterol Direct HDL Cholesterol Urine pH Urine WBC (Auto) Urine Creatinine Urine Total Protein Fluid Total Protein Vancomycin Trough Rheumatoid Factor Complement C4 Miscellaneous Test Crossmatch 09/22/16 09/22/16 09/23/16 17:29 23:10 05:00 WBC 19.2 H RBC 3.13 L Hgb 8.0 L Hct 25.2 L MCV MCH 26 L MCHC RDW 22.1 H Plt Count Lymph % (Auto) [place] % (Auto) Lymph # [place] # Baso # Seg Neutrophils % Seg Neuts % (Manual) 92.0 H Lymphocytes % (Manual) 3.0 L Monocytes % (Manual) Eosinophils % (Manual) Basophils % (Manual) Nucleated RBC % Seg Neutrophils # Seg Neutrophils # Man 17.7 H Lymphocytes # (Manual) 0.6 L Monocytes # (Manual) Eosinophils # (Manual) Basophils # (Manual) PT INR Fibrinogen dRVVT Confirm Interp Factor V Activity POC ABG pH POC ABG pCO2 POC ABG pO2 ABG pO2 ABG HCO3 ABG Base Excess ABG Hemoglobin Oxyhemoglobin Sodium Potassium Chloride Carbon Dioxide BUN Creatinine Glucose POC Glucose 197 H 169 H Lactic Acid Calcium Phosphorus Magnesium Direct Bilirubin AST ALT Alkaline Phosphatase Lactate Dehydrogenase Troponin T C-Reactive Protein Total Protein Albumin Prealbumin Triglycerides Cholesterol LDL Cholesterol Direct HDL Cholesterol Urine pH Urine WBC (Auto) Urine Creatinine Urine Total Protein Fluid Total Protein Vancomycin Trough Rheumatoid Factor Complement C4 Miscellaneous Test Crossmatch 09/23/16 09/23/16 09/23/16 05:00 05:00 05:10 WBC RBC Hgb Hct MCV MCH MCHC RDW Plt Count Lymph % (Auto) [place] % (Auto) Lymph # [place] # Baso # Seg Neutrophils % Seg Neuts % (Manual) Lymphocytes % (Manual) Monocytes % (Manual) Eosinophils % (Manual) Basophils % (Manual) Nucleated RBC % Seg Neutrophils # Seg Neutrophils # Man Lymphocytes # (Manual) Monocytes # (Manual) Eosinophils # (Manual) Basophils # (Manual) PT INR Fibrinogen dRVVT Confirm Interp Factor V Activity POC ABG pH POC ABG pCO2 POC ABG pO2 ABG pO2 ABG HCO3 ABG Base Excess ABG Hemoglobin Oxyhemoglobin Sodium 147 H Potassium 3.2 L Chloride 115.7 H Carbon Dioxide 13 L BUN 111 H Creatinine 3.8 H Glucose 194 H POC Glucose 188 H Lactic Acid Calcium 7.3 L D Phosphorus Magnesium Direct Bilirubin AST ALT Alkaline Phosphatase Lactate Dehydrogenase Troponin T C-Reactive Protein 3.20 H Total Protein Albumin Prealbumin Triglycerides Cholesterol LDL Cholesterol Direct HDL Cholesterol Urine pH Urine WBC (Auto) Urine Creatinine Urine Total Protein Fluid Total Protein Vancomycin Trough Rheumatoid Factor Complement C4 Miscellaneous Test Crossmatch 09/23/16 09/23/16 09/23/16 11:37 12:29 18:01 WBC RBC Hgb Hct MCV MCH MCHC RDW Plt Count Lymph % (Auto) [place] % (Auto) Lymph # [place] # Baso # Seg Neutrophils % Seg Neuts % (Manual) Lymphocytes % (Manual) Monocytes % (Manual) Eosinophils % (Manual) Basophils % (Manual) Nucleated RBC % Seg Neutrophils # Seg Neutrophils # Man Lymphocytes # (Manual) Monocytes # (Manual) Eosinophils # (Manual) Basophils # (Manual) PT INR Fibrinogen dRVVT Confirm Interp Factor V Activity POC ABG pH POC ABG pCO2 18.9 L POC ABG pO2 143 H ABG pO2 ABG HCO3 ABG Base Excess ABG Hemoglobin Oxyhemoglobin Sodium Potassium Chloride Carbon Dioxide BUN Creatinine Glucose POC Glucose 153 H 108 H Lactic Acid Calcium Phosphorus Magnesium Direct Bilirubin AST ALT Alkaline Phosphatase Lactate Dehydrogenase Troponin T C-Reactive Protein Total Protein Albumin Prealbumin Triglycerides Cholesterol LDL Cholesterol Direct HDL Cholesterol Urine pH Urine WBC (Auto) Urine Creatinine Urine Total Protein Fluid Total Protein Vancomycin Trough Rheumatoid Factor Complement C4 Miscellaneous Test Crossmatch 09/23/16 09/23/16 09/24/16 21:19 23:43 05:16 WBC RBC Hgb Hct MCV MCH MCHC RDW Plt Count Lymph % (Auto) [place] % (Auto) Lymph # [place] # Baso # Seg Neutrophils % Seg Neuts % (Manual) Lymphocytes % (Manual) Monocytes % (Manual) Eosinophils % (Manual) Basophils % (Manual) Nucleated RBC % Seg Neutrophils # Seg Neutrophils # Man Lymphocytes # (Manual) Monocytes # (Manual) Eosinophils # (Manual) Basophils # (Manual) PT INR Fibrinogen dRVVT Confirm Interp Factor V Activity POC ABG pH POC ABG pCO2 17.3 L POC ABG pO2 112 H ABG pO2 ABG HCO3 ABG Base Excess ABG Hemoglobin Oxyhemoglobin Sodium Potassium Chloride Carbon Dioxide BUN Creatinine Glucose POC Glucose 143 H 164 H Lactic Acid Calcium Phosphorus Magnesium Direct Bilirubin AST ALT Alkaline Phosphatase Lactate Dehydrogenase Troponin T C-Reactive Protein Total Protein Albumin Prealbumin Triglycerides Cholesterol LDL Cholesterol Direct HDL Cholesterol Urine pH Urine WBC (Auto) Urine Creatinine Urine Total Protein Fluid Total Protein Vancomycin Trough Rheumatoid Factor Complement C4 Miscellaneous Test Crossmatch 09/24/16 09/24/16 09/24/16 05:21 11:58 17:06 WBC RBC Hgb Hct MCV MCH MCHC RDW Plt Count Lymph % (Auto) [place] % (Auto) Lymph # [place] # Baso # Seg Neutrophils % Seg Neuts % (Manual) Lymphocytes % (Manual) Monocytes % (Manual) Eosinophils % (Manual) Basophils % (Manual) Nucleated RBC % Seg Neutrophils # Seg Neutrophils # Man Lymphocytes # (Manual) Monocytes # (Manual) Eosinophils # (Manual) Basophils # (Manual) PT INR Fibrinogen dRVVT Confirm Interp Factor V Activity POC ABG pH POC ABG pCO2 POC ABG pO2 ABG pO2 ABG HCO3 ABG Base Excess ABG Hemoglobin Oxyhemoglobin Sodium Potassium Chloride Carbon Dioxide 10 L BUN 103 H Creatinine 4.3 H Glucose 163 H POC Glucose 173 H 167 H Lactic Acid Calcium 6.5 L Phosphorus Magnesium Direct Bilirubin AST ALT Alkaline Phosphatase Lactate Dehydrogenase Troponin T C-Reactive Protein Total Protein Albumin Prealbumin Triglycerides Cholesterol LDL Cholesterol Direct HDL Cholesterol Urine pH Urine WBC (Auto) Urine Creatinine Urine Total Protein Fluid Total Protein Vancomycin Trough Rheumatoid Factor Complement C4 Miscellaneous Test Crossmatch 09/24/16 09/24/16 09/24/16 20:15 21:02 23:48 WBC RBC Hgb Hct MCV MCH MCHC RDW Plt Count Lymph % (Auto) [place] % (Auto) Lymph # [place] # Baso # Seg Neutrophils % Seg Neuts % (Manual) Lymphocytes % (Manual) Monocytes % (Manual) Eosinophils % (Manual) Basophils % (Manual) Nucleated RBC % Seg Neutrophils # Seg Neutrophils # Man Lymphocytes # (Manual) Monocytes # (Manual) Eosinophils # (Manual) Basophils # (Manual) PT INR Fibrinogen dRVVT Confirm Interp Factor V Activity POC ABG pH 7.288 L POC ABG pCO2 30.2 L 21.5 L POC ABG pO2 32 L 39 L ABG pO2 ABG HCO3 ABG Base Excess ABG Hemoglobin Oxyhemoglobin Sodium Potassium Chloride Carbon Dioxide BUN Creatinine Glucose POC Glucose 109 H Lactic Acid Calcium Phosphorus Magnesium Direct Bilirubin AST ALT Alkaline Phosphatase Lactate Dehydrogenase Troponin T C-Reactive Protein Total Protein Albumin Prealbumin Triglycerides Cholesterol LDL Cholesterol Direct HDL Cholesterol Urine pH Urine WBC (Auto) Urine Creatinine Urine Total Protein Fluid Total Protein Vancomycin Trough Rheumatoid Factor Complement C4 Miscellaneous Test Crossmatch 09/25/16 09/25/16 09/25/16 04:20 04:20 04:20 WBC RBC 2.58 L Hgb 7.0 L Hct 21.0 L MCV MCH 27 L MCHC RDW 23.8 H Plt Count Lymph % (Auto) [place] % (Auto) Lymph # [place] # Baso # Seg Neutrophils % Seg Neuts % (Manual) Lymphocytes % (Manual) 12.0 L Monocytes % (Manual) Eosinophils % (Manual) 7.0 H Basophils % (Manual) 2.0 H Nucleated RBC % Seg Neutrophils # Seg Neutrophils # Man Lymphocytes # (Manual) 0.9 L Monocytes # (Manual) Eosinophils # (Manual) 0.5 H Basophils # (Manual) PT INR Fibrinogen dRVVT Confirm Interp Factor V Activity POC ABG pH POC ABG pCO2 POC ABG pO2 ABG pO2 ABG HCO3 ABG Base Excess ABG Hemoglobin Oxyhemoglobin Sodium Potassium Chloride Carbon Dioxide 15 L BUN 72 H Creatinine 3.8 H Glucose POC Glucose Lactic Acid Calcium 6.0 L Phosphorus 4.60 H Magnesium 1.60 L Direct Bilirubin AST ALT Alkaline Phosphatase Lactate Dehydrogenase Troponin T C-Reactive Protein Total Protein Albumin Prealbumin Triglycerides Cholesterol LDL Cholesterol Direct HDL Cholesterol Urine pH Urine WBC (Auto) Urine Creatinine Urine Total Protein Fluid Total Protein Vancomycin Trough Rheumatoid Factor Complement C4 Miscellaneous Test Crossmatch 09/25/16 09/25/16 09/25/16 04:57 08:02 10:30 WBC RBC Hgb Hct MCV MCH MCHC RDW Plt Count Lymph % (Auto) [place] % (Auto) Lymph # [place] # Baso # Seg Neutrophils % Seg Neuts % (Manual) Lymphocytes % (Manual) Monocytes % (Manual) Eosinophils % (Manual) Basophils % (Manual) Nucleated RBC % Seg Neutrophils # Seg Neutrophils # Man Lymphocytes # (Manual) Monocytes # (Manual) Eosinophils # (Manual) Basophils # (Manual) PT INR Fibrinogen dRVVT Confirm Interp Factor V Activity POC ABG pH POC ABG pCO2 24.7 L POC ABG pO2 152 H ABG pO2 ABG HCO3 ABG Base Excess ABG Hemoglobin Oxyhemoglobin Sodium Potassium Chloride Carbon Dioxide BUN Creatinine Glucose POC Glucose 113 H Lactic Acid Calcium Phosphorus Magnesium Direct Bilirubin AST ALT Alkaline Phosphatase Lactate Dehydrogenase Troponin T C-Reactive Protein Total Protein Albumin Prealbumin Triglycerides Cholesterol LDL Cholesterol Direct HDL Cholesterol Urine pH Urine WBC (Auto) Urine Creatinine Urine Total Protein Fluid Total Protein Vancomycin Trough Rheumatoid Factor Complement C4 Miscellaneous Test Crossmatch See Detail 09/25/16 09/25/16 09/25/16 12:05 17:44 23:47 WBC RBC Hgb Hct MCV MCH MCHC RDW Plt Count Lymph % (Auto) [place] % (Auto) Lymph # [place] # Baso # Seg Neutrophils % Seg Neuts % (Manual) Lymphocytes % (Manual) Monocytes % (Manual) Eosinophils % (Manual) Basophils % (Manual) Nucleated RBC % Seg Neutrophils # Seg Neutrophils # Man Lymphocytes # (Manual) Monocytes # (Manual) Eosinophils # (Manual) Basophils # (Manual) PT INR Fibrinogen dRVVT Confirm Interp Factor V Activity POC ABG pH POC ABG pCO2 POC ABG pO2 ABG pO2 ABG HCO3 ABG Base Excess ABG Hemoglobin Oxyhemoglobin Sodium Potassium Chloride Carbon Dioxide BUN Creatinine Glucose POC Glucose 117 H 119 H 150 H Lactic Acid Calcium Phosphorus Magnesium Direct Bilirubin AST ALT Alkaline Phosphatase Lactate Dehydrogenase Troponin T C-Reactive Protein Total Protein Albumin Prealbumin Triglycerides Cholesterol LDL Cholesterol Direct HDL Cholesterol Urine pH Urine WBC (Auto) Urine Creatinine Urine Total Protein Fluid Total Protein Vancomycin Trough Rheumatoid Factor Complement C4 Miscellaneous Test Crossmatch 09/26/16 09/26/16 09/26/16 04:25 04:25 04:25 WBC RBC 2.65 L Hgb 7.4 L Hct 21.6 L MCV MCH MCHC RDW 22.5 H Plt Count Lymph % (Auto) [place] % (Auto) Lymph # [place] # Baso # Seg Neutrophils % Seg Neuts % (Manual) Lymphocytes % (Manual) 6.0 L Monocytes % (Manual) Eosinophils % (Manual) 11.0 H Basophils % (Manual) Nucleated RBC % Seg Neutrophils # Seg Neutrophils # Man Lymphocytes # (Manual) 0.4 L Monocytes # (Manual) Eosinophils # (Manual) 0.6 H Basophils # (Manual) PT INR Fibrinogen dRVVT Confirm Interp Factor V Activity POC ABG pH POC ABG pCO2 POC ABG pO2 ABG pO2 ABG HCO3 ABG Base Excess ABG Hemoglobin Oxyhemoglobin Sodium Potassium Chloride 97.0 L Carbon Dioxide 19 L BUN 43 H Creatinine 2.6 H Glucose 130 H POC Glucose Lactic Acid 4.40 H* Calcium 6.7 L Phosphorus Magnesium Direct Bilirubin AST ALT Alkaline Phosphatase Lactate Dehydrogenase Troponin T C-Reactive Protein Total Protein Albumin Prealbumin Triglycerides Cholesterol LDL Cholesterol Direct HDL Cholesterol Urine pH Urine WBC (Auto) Urine Creatinine Urine Total Protein Fluid Total Protein Vancomycin Trough Rheumatoid Factor Complement C4 Miscellaneous Test Crossmatch 09/26/16 09/26/16 09/26/16 05:20 11:44 12:12 WBC RBC Hgb Hct MCV MCH MCHC RDW Plt Count Lymph % (Auto) [place] % (Auto) Lymph # [place] # Baso # Seg Neutrophils % Seg Neuts % (Manual) Lymphocytes % (Manual) Monocytes % (Manual) Eosinophils % (Manual) Basophils % (Manual) Nucleated RBC % Seg Neutrophils # Seg Neutrophils # Man Lymphocytes # (Manual) Monocytes # (Manual) Eosinophils # (Manual) Basophils # (Manual) PT INR Fibrinogen dRVVT Confirm Interp Factor V Activity POC ABG pH POC ABG pCO2 27.0 L POC ABG pO2 69 L ABG pO2 ABG HCO3 ABG Base Excess ABG Hemoglobin Oxyhemoglobin Sodium Potassium Chloride Carbon Dioxide BUN Creatinine Glucose POC Glucose 121 H 128 H Lactic Acid Calcium Phosphorus Magnesium Direct Bilirubin AST ALT Alkaline Phosphatase Lactate Dehydrogenase Troponin T C-Reactive Protein Total Protein Albumin Prealbumin Triglycerides Cholesterol LDL Cholesterol Direct HDL Cholesterol Urine pH Urine WBC (Auto) Urine Creatinine Urine Total Protein Fluid Total Protein Vancomycin Trough Rheumatoid Factor Complement C4 Miscellaneous Test Crossmatch 09/26/16 09/26/16 09/27/16 18:31 23:40 08:20 WBC RBC Hgb Hct MCV MCH MCHC RDW Plt Count Lymph % (Auto) [place] % (Auto) Lymph # [place] # Baso # Seg Neutrophils % Seg Neuts % (Manual) Lymphocytes % (Manual) Monocytes % (Manual) Eosinophils % (Manual) Basophils % (Manual) Nucleated RBC % Seg Neutrophils # Seg Neutrophils # Man Lymphocytes # (Manual) Monocytes # (Manual) Eosinophils # (Manual) Basophils # (Manual) PT INR Fibrinogen dRVVT Confirm Interp Factor V Activity POC ABG pH POC ABG pCO2 POC ABG pO2 ABG pO2 ABG HCO3 ABG Base Excess ABG Hemoglobin Oxyhemoglobin Sodium Potassium Chloride Carbon Dioxide BUN Creatinine Glucose POC Glucose 120 H 133 H Lactic Acid 4.10 H* Calcium Phosphorus Magnesium Direct Bilirubin AST ALT Alkaline Phosphatase Lactate Dehydrogenase Troponin T C-Reactive Protein Total Protein Albumin Prealbumin Triglycerides Cholesterol LDL Cholesterol Direct HDL Cholesterol Urine pH Urine WBC (Auto) Urine Creatinine Urine Total Protein Fluid Total Protein Vancomycin Trough Rheumatoid Factor Complement C4 Miscellaneous Test Crossmatch 09/27/16 09/27/16 09/27/16 11:23 15:00 18:15 WBC RBC Hgb Hct MCV MCH MCHC RDW Plt Count Lymph % (Auto) [place] % (Auto) Lymph # [place] # Baso # Seg Neutrophils % Seg Neuts % (Manual) Lymphocytes % (Manual) Monocytes % (Manual) Eosinophils % (Manual) Basophils % (Manual) Nucleated RBC % Seg Neutrophils # Seg Neutrophils # Man Lymphocytes # (Manual) Monocytes # (Manual) Eosinophils # (Manual) Basophils # (Manual) PT INR Fibrinogen dRVVT Confirm Interp Factor V Activity POC ABG pH 7.459 H POC ABG pCO2 27.1 L POC ABG pO2 140 H ABG pO2 ABG HCO3 ABG Base Excess ABG Hemoglobin Oxyhemoglobin Sodium Potassium Chloride Carbon Dioxide BUN Creatinine Glucose POC Glucose 114 H 127 H Lactic Acid Calcium Phosphorus Magnesium Direct Bilirubin AST ALT Alkaline Phosphatase Lactate Dehydrogenase Troponin T C-Reactive Protein Total Protein Albumin Prealbumin Triglycerides Cholesterol LDL Cholesterol Direct HDL Cholesterol Urine pH Urine WBC (Auto) Urine Creatinine Urine Total Protein Fluid Total Protein Vancomycin Trough Rheumatoid Factor Complement C4 Miscellaneous Test Crossmatch 09/27/16 09/27/16 09/28/16 Unknown Unknown 03:45 WBC RBC 2.49 L Hgb 6.8 L Hct 20.7 L MCV MCH 27 L MCHC RDW 22.1 H Plt Count Lymph % (Auto) [place] % (Auto) Lymph # [place] # Baso # Seg Neutrophils % Seg Neuts % (Manual) 32.0 L Lymphocytes % (Manual) 12.0 L Monocytes % (Manual) 11.0 H Eosinophils % (Manual) 10.0 H Basophils % (Manual) Nucleated RBC % Seg Neutrophils # Seg Neutrophils # Man Lymphocytes # (Manual) 1.0 L Monocytes # (Manual) 0.9 H Eosinophils # (Manual) 0.8 H Basophils # (Manual) PT INR Fibrinogen dRVVT Confirm Interp Factor V Activity POC ABG pH POC ABG pCO2 POC ABG pO2 ABG pO2 ABG HCO3 ABG Base Excess ABG Hemoglobin Oxyhemoglobin Sodium 135 L 135 L Potassium 3.5 L Chloride 93.6 L 94.4 L Carbon Dioxide 17 L 21 L BUN 45 H 28 H Creatinine 3.3 H 2.5 H Glucose 106 H POC Glucose Lactic Acid Calcium 7.3 L 7.1 L Phosphorus Magnesium Direct Bilirubin AST ALT Alkaline Phosphatase Lactate Dehydrogenase Troponin T C-Reactive Protein Total Protein Albumin Prealbumin Triglycerides Cholesterol LDL Cholesterol Direct HDL Cholesterol Urine pH Urine WBC (Auto) Urine Creatinine Urine Total Protein Fluid Total Protein Vancomycin Trough Rheumatoid Factor Complement C4 Miscellaneous Test Crossmatch 09/28/16 09/28/16 09/28/16 03:45 07:25 11:58 WBC 13.3 H RBC 3.01 L Hgb 8.4 L Hct 25.0 L MCV MCH MCHC RDW 20.5 H Plt Count 128 L Lymph % (Auto) [place] % (Auto) Lymph # [place] # Baso # Seg Neutrophils % Seg Neuts % (Manual) Lymphocytes % (Manual) 7.0 L Monocytes % (Manual) Eosinophils % (Manual) 6.0 H Basophils % (Manual) Nucleated RBC % Seg Neutrophils # Seg Neutrophils # Man Lymphocytes # (Manual) 0.9 L Monocytes # (Manual) Eosinophils # (Manual) 0.8 H Basophils # (Manual) PT INR Fibrinogen dRVVT Confirm Interp Factor V Activity POC ABG pH POC ABG pCO2 POC ABG pO2 ABG pO2 ABG HCO3 ABG Base Excess ABG Hemoglobin Oxyhemoglobin Sodium Potassium Chloride Carbon Dioxide BUN Creatinine Glucose POC Glucose 121 H Lactic Acid 4.50 H* Calcium Phosphorus Magnesium Direct Bilirubin AST ALT Alkaline Phosphatase Lactate Dehydrogenase Troponin T C-Reactive Protein Total Protein Albumin Prealbumin Triglycerides Cholesterol LDL Cholesterol Direct HDL Cholesterol Urine pH Urine WBC (Auto) Urine Creatinine Urine Total Protein Fluid Total Protein Vancomycin Trough Rheumatoid Factor Complement C4 Miscellaneous Test Crossmatch 09/29/16 09/29/16 09/29/16 06:45 06:45 06:45 WBC 14.9 H RBC 2.74 L Hgb 7.6 L Hct 23.2 L MCV MCH MCHC RDW 20.5 H Plt Count 81 L Lymph % (Auto) [place] % (Auto) Lymph # [place] # Baso # Seg Neutrophils % Seg Neuts % (Manual) 81.0 H Lymphocytes % (Manual) 4.0 L Monocytes % (Manual) Eosinophils % (Manual) Basophils % (Manual) Nucleated RBC % Seg Neutrophils # Seg Neutrophils # Man 12.1 H Lymphocytes # (Manual) 0.6 L Monocytes # (Manual) Eosinophils # (Manual) Basophils # (Manual) PT INR Fibrinogen dRVVT Confirm Interp Factor V Activity POC ABG pH POC ABG pCO2 POC ABG pO2 ABG pO2 ABG HCO3 ABG Base Excess ABG Hemoglobin Oxyhemoglobin Sodium 133 L Potassium 3.4 L Chloride 92.5 L Carbon Dioxide 21 L BUN 33 H Creatinine 3.0 H Glucose POC Glucose Lactic Acid Calcium 6.6 L Phosphorus Magnesium 1.40 L Direct Bilirubin 0.9 H AST ALT Alkaline Phosphatase Lactate Dehydrogenase Troponin T C-Reactive Protein Total Protein 4.3 L Albumin 1.3 L Prealbumin Triglycerides Cholesterol LDL Cholesterol Direct HDL Cholesterol Urine pH Urine WBC (Auto) Urine Creatinine Urine Total Protein Fluid Total Protein Vancomycin Trough Rheumatoid Factor Complement C4 Miscellaneous Test Crossmatch 09/29/16 09/29/16 09/30/16 17:52 20:12 00:07 WBC RBC Hgb Hct MCV MCH MCHC RDW Plt Count Lymph % (Auto) [place] % (Auto) Lymph # [place] # Baso # Seg Neutrophils % Seg Neuts % (Manual) Lymphocytes % (Manual) Monocytes % (Manual) Eosinophils % (Manual) Basophils % (Manual) Nucleated RBC % Seg Neutrophils # Seg Neutrophils # Man Lymphocytes # (Manual) Monocytes # (Manual) Eosinophils # (Manual) Basophils # (Manual) PT INR Fibrinogen dRVVT Confirm Interp Factor V Activity POC ABG pH POC ABG pCO2 POC ABG pO2 ABG pO2 ABG HCO3 ABG Base Excess ABG Hemoglobin Oxyhemoglobin Sodium Potassium Chloride Carbon Dioxide BUN Creatinine Glucose POC Glucose 50 L 51 L Lactic Acid Calcium Phosphorus Magnesium Direct Bilirubin AST ALT Alkaline Phosphatase Lactate Dehydrogenase Troponin T 0.204 H* C-Reactive Protein Total Protein Albumin Prealbumin Triglycerides Cholesterol 31 L LDL Cholesterol Direct 4 L HDL Cholesterol 3 L Urine pH Urine WBC (Auto) Urine Creatinine Urine Total Protein Fluid Total Protein Vancomycin Trough Rheumatoid Factor Complement C4 Miscellaneous Test Crossmatch 09/30/16 09/30/16 09/30/16 01:30 05:15 06:10 WBC RBC Hgb Hct MCV MCH MCHC RDW Plt Count Lymph % (Auto) [place] % (Auto) Lymph # [place] # Baso # Seg Neutrophils % Seg Neuts % (Manual) Lymphocytes % (Manual) Monocytes % (Manual) Eosinophils % (Manual) Basophils % (Manual) Nucleated RBC % Seg Neutrophils # Seg Neutrophils # Man Lymphocytes # (Manual) Monocytes # (Manual) Eosinophils # (Manual) Basophils # (Manual) PT INR Fibrinogen dRVVT Confirm Interp Factor V Activity POC ABG pH POC ABG pCO2 POC ABG pO2 ABG pO2 ABG HCO3 ABG Base Excess ABG Hemoglobin Oxyhemoglobin Sodium 133 L Potassium 3.2 L Chloride 93.2 L Carbon Dioxide 19 L BUN 36 H Creatinine 3.2 H Glucose 104 H POC Glucose 167 H 146 H Lactic Acid Calcium 6.4 L Phosphorus Magnesium 1.60 L Direct Bilirubin AST ALT Alkaline Phosphatase Lactate Dehydrogenase Troponin T C-Reactive Protein Total Protein Albumin Prealbumin Triglycerides Cholesterol LDL Cholesterol Direct HDL Cholesterol Urine pH Urine WBC (Auto) Urine Creatinine Urine Total Protein Fluid Total Protein Vancomycin Trough Rheumatoid Factor Complement C4 Miscellaneous Test Crossmatch 09/30/16 09/30/16 09/30/16 11:26 13:39 18:38 WBC RBC Hgb Hct MCV MCH MCHC RDW Plt Count Lymph % (Auto) [place] % (Auto) Lymph # [place] # Baso # Seg Neutrophils % Seg Neuts % (Manual) Lymphocytes % (Manual) Monocytes % (Manual) Eosinophils % (Manual) Basophils % (Manual) Nucleated RBC % Seg Neutrophils # Seg Neutrophils # Man Lymphocytes # (Manual) Monocytes # (Manual) Eosinophils # (Manual) Basophils # (Manual) PT INR Fibrinogen dRVVT Confirm Interp Factor V Activity POC ABG pH 7.479 H POC ABG pCO2 29.8 L POC ABG pO2 117 H ABG pO2 ABG HCO3 ABG Base Excess ABG Hemoglobin Oxyhemoglobin Sodium Potassium Chloride Carbon Dioxide BUN Creatinine Glucose POC Glucose 140 H 122 H Lactic Acid Calcium Phosphorus Magnesium Direct Bilirubin AST ALT Alkaline Phosphatase Lactate Dehydrogenase Troponin T C-Reactive Protein Total Protein Albumin Prealbumin Triglycerides Cholesterol LDL Cholesterol Direct HDL Cholesterol Urine pH Urine WBC (Auto) Urine Creatinine Urine Total Protein Fluid Total Protein Vancomycin Trough Rheumatoid Factor Complement C4 Miscellaneous Test Crossmatch 10/01/16 10/01/16 10/01/16 06:00 06:00 12:37 WBC 12.6 H RBC 2.75 L Hgb 7.3 L Hct 23.3 L MCV MCH 27 L MCHC RDW 20.6 H Plt Count 72 L Lymph % (Auto) [place] % (Auto) Lymph # [place] # Baso # Seg Neutrophils % Seg Neuts % (Manual) 31.0 L Lymphocytes % (Manual) 8.0 L Monocytes % (Manual) Eosinophils % (Manual) Basophils % (Manual) Nucleated RBC % 3.0 H Seg Neutrophils # Seg Neutrophils # Man Lymphocytes # (Manual) 1.0 L Monocytes # (Manual) Eosinophils # (Manual) Basophils # (Manual) PT INR Fibrinogen dRVVT Confirm Interp Factor V Activity POC ABG pH POC ABG pCO2 POC ABG pO2 ABG pO2 ABG HCO3 ABG Base Excess ABG Hemoglobin Oxyhemoglobin Sodium 127 L Potassium Chloride 86.8 L Carbon Dioxide 20 L BUN 42 H Creatinine 3.5 H Glucose POC Glucose 65 L Lactic Acid Calcium 7.0 L Phosphorus Magnesium Direct Bilirubin AST ALT Alkaline Phosphatase Lactate Dehydrogenase Troponin T C-Reactive Protein Total Protein Albumin Prealbumin Triglycerides Cholesterol LDL Cholesterol Direct HDL Cholesterol Urine pH Urine WBC (Auto) Urine Creatinine Urine Total Protein Fluid Total Protein Vancomycin Trough Rheumatoid Factor Complement C4 Miscellaneous Test Crossmatch 10/01/16 10/01/16 10/02/16 17:39 23:32 00:59 WBC RBC Hgb Hct MCV MCH MCHC RDW Plt Count Lymph % (Auto) [place] % (Auto) Lymph # [place] # Baso # Seg Neutrophils % Seg Neuts % (Manual) Lymphocytes % (Manual) Monocytes % (Manual) Eosinophils % (Manual) Basophils % (Manual) Nucleated RBC % Seg Neutrophils # Seg Neutrophils # Man Lymphocytes # (Manual) Monocytes # (Manual) Eosinophils # (Manual) Basophils # (Manual) PT INR Fibrinogen dRVVT Confirm Interp Factor V Activity POC ABG pH POC ABG pCO2 POC ABG pO2 ABG pO2 ABG HCO3 ABG Base Excess ABG Hemoglobin Oxyhemoglobin Sodium Potassium Chloride Carbon Dioxide BUN Creatinine Glucose POC Glucose 107 H 52 L 145 H Lactic Acid Calcium Phosphorus Magnesium Direct Bilirubin AST ALT Alkaline Phosphatase Lactate Dehydrogenase Troponin T C-Reactive Protein Total Protein Albumin Prealbumin Triglycerides Cholesterol LDL Cholesterol Direct HDL Cholesterol Urine pH Urine WBC (Auto) Urine Creatinine Urine Total Protein Fluid Total Protein Vancomycin Trough Rheumatoid Factor Complement C4 Miscellaneous Test Crossmatch 10/02/16 10/02/16 10/02/16 10:30 10:50 10:50 WBC 14.7 H RBC 2.76 L Hgb 7.4 L Hct 23.6 L MCV MCH 27 L MCHC RDW 20.2 H Plt Count 79 L Lymph % (Auto) [place] % (Auto) Lymph # [place] # Baso # Seg Neutrophils % Seg Neuts % (Manual) 86.0 H Lymphocytes % (Manual) 6.0 L Monocytes % (Manual) Eosinophils % (Manual) Basophils % (Manual) Nucleated RBC % Seg Neutrophils # Seg Neutrophils # Man 12.6 H Lymphocytes # (Manual) 0.9 L Monocytes # (Manual) Eosinophils # (Manual) Basophils # (Manual) PT INR Fibrinogen dRVVT Confirm Interp Factor V Activity POC ABG pH 7.486 H POC ABG pCO2 30.1 L POC ABG pO2 108 H ABG pO2 ABG HCO3 ABG Base Excess ABG Hemoglobin Oxyhemoglobin Sodium 131 L Potassium 3.4 L Chloride 89.9 L Carbon Dioxide BUN 26 H Creatinine 2.6 H Glucose POC Glucose Lactic Acid Calcium 7.0 L Phosphorus Magnesium Direct Bilirubin AST ALT Alkaline Phosphatase Lactate Dehydrogenase Troponin T C-Reactive Protein Total Protein Albumin Prealbumin Triglycerides Cholesterol LDL Cholesterol Direct HDL Cholesterol Urine pH Urine WBC (Auto) Urine Creatinine Urine Total Protein Fluid Total Protein Vancomycin Trough Rheumatoid Factor Complement C4 Miscellaneous Test Crossmatch 10/02/16 10/03/16 10/03/16 23:45 00:45 05:10 WBC 12.9 H RBC 2.77 L Hgb 7.6 L Hct 23.7 L MCV MCH 27 L MCHC RDW 19.7 H Plt Count 89 L Lymph % (Auto) [place] % (Auto) Lymph # [place] # Baso # Seg Neutrophils % Seg Neuts % (Manual) Lymphocytes % (Manual) 8.0 L Monocytes % (Manual) Eosinophils % (Manual) Basophils % (Manual) Nucleated RBC % Seg Neutrophils # 11.9 H Seg Neutrophils # Man Lymphocytes # (Manual) 1.0 L Monocytes # (Manual) Eosinophils # (Manual) Basophils # (Manual) PT INR Fibrinogen dRVVT Confirm Interp Factor V Activity POC ABG pH POC ABG pCO2 POC ABG pO2 ABG pO2 ABG HCO3 ABG Base Excess ABG Hemoglobin Oxyhemoglobin Sodium Potassium Chloride Carbon Dioxide BUN Creatinine Glucose POC Glucose 55 L 199 H Lactic Acid Calcium Phosphorus Magnesium Direct Bilirubin AST ALT Alkaline Phosphatase Lactate Dehydrogenase Troponin T C-Reactive Protein Total Protein Albumin Prealbumin Triglycerides Cholesterol LDL Cholesterol Direct HDL Cholesterol Urine pH Urine WBC (Auto) Urine Creatinine Urine Total Protein Fluid Total Protein Vancomycin Trough Rheumatoid Factor Complement C4 Miscellaneous Test Crossmatch 10/03/16 10/03/16 10/03/16 05:10 12:14 13:18 WBC RBC Hgb Hct MCV MCH MCHC RDW Plt Count Lymph % (Auto) [place] % (Auto) Lymph # [place] # Baso # Seg Neutrophils % Seg Neuts % (Manual) Lymphocytes % (Manual) Monocytes % (Manual) Eosinophils % (Manual) Basophils % (Manual) Nucleated RBC % Seg Neutrophils # Seg Neutrophils # Man Lymphocytes # (Manual) Monocytes # (Manual) Eosinophils # (Manual) Basophils # (Manual) PT INR Fibrinogen dRVVT Confirm Interp Factor V Activity POC ABG pH POC ABG pCO2 POC ABG pO2 ABG pO2 ABG HCO3 ABG Base Excess ABG Hemoglobin Oxyhemoglobin Sodium 129 L Potassium 3.3 L Chloride 88.8 L Carbon Dioxide 20 L BUN 29 H Creatinine 2.8 H Glucose POC Glucose 68 L 127 H Lactic Acid Calcium 7.2 L Phosphorus Magnesium Direct Bilirubin AST ALT Alkaline Phosphatase Lactate Dehydrogenase Troponin T C-Reactive Protein Total Protein Albumin Prealbumin Triglycerides Cholesterol LDL Cholesterol Direct HDL Cholesterol Urine pH Urine WBC (Auto) Urine Creatinine Urine Total Protein Fluid Total Protein Vancomycin Trough Rheumatoid Factor Complement C4 Miscellaneous Test Crossmatch 10/03/16 10/03/16 10/03/16 14:42 18:21 19:09 WBC RBC Hgb Hct MCV MCH MCHC RDW Plt Count Lymph % (Auto) [place] % (Auto) Lymph # [place] # Baso # Seg Neutrophils % Seg Neuts % (Manual) Lymphocytes % (Manual) Monocytes % (Manual) Eosinophils % (Manual) Basophils % (Manual) Nucleated RBC % Seg Neutrophils # Seg Neutrophils # Man Lymphocytes # (Manual) Monocytes # (Manual) Eosinophils # (Manual) Basophils # (Manual) PT INR Fibrinogen dRVVT Confirm Interp Factor V Activity POC ABG pH 7.499 H POC ABG pCO2 28.4 L POC ABG pO2 44 L ABG pO2 ABG HCO3 ABG Base Excess ABG Hemoglobin Oxyhemoglobin Sodium Potassium Chloride Carbon Dioxide BUN Creatinine Glucose POC Glucose 64 L 205 H Lactic Acid Calcium Phosphorus Magnesium Direct Bilirubin AST ALT Alkaline Phosphatase Lactate Dehydrogenase Troponin T C-Reactive Protein Total Protein Albumin Prealbumin Triglycerides Cholesterol LDL Cholesterol Direct HDL Cholesterol Urine pH Urine WBC (Auto) Urine Creatinine Urine Total Protein Fluid Total Protein Vancomycin Trough Rheumatoid Factor Complement C4 Miscellaneous Test Crossmatch 10/03/16 10/04/16 10/04/16 23:33 04:18 06:30 WBC RBC 2.54 L Hgb 7.1 L Hct 21.7 L MCV MCH MCHC RDW 19.5 H Plt Count 76 L Lymph % (Auto) [place] % (Auto) Lymph # [place] # Baso # Seg Neutrophils % Seg Neuts % (Manual) 88.0 H Lymphocytes % (Manual) 6.0 L Monocytes % (Manual) Eosinophils % (Manual) Basophils % (Manual) Nucleated RBC % Seg Neutrophils # Seg Neutrophils # Man 8.8 H Lymphocytes # (Manual) 0.6 L Monocytes # (Manual) Eosinophils # (Manual) Basophils # (Manual) PT INR Fibrinogen dRVVT Confirm Interp Factor V Activity POC ABG pH 7.461 H POC ABG pCO2 33.6 L POC ABG pO2 211 H ABG pO2 ABG HCO3 ABG Base Excess ABG Hemoglobin Oxyhemoglobin Sodium Potassium Chloride Carbon Dioxide BUN Creatinine Glucose POC Glucose 136 H Lactic Acid Calcium Phosphorus Magnesium Direct Bilirubin AST ALT Alkaline Phosphatase Lactate Dehydrogenase Troponin T C-Reactive Protein Total Protein Albumin Prealbumin Triglycerides Cholesterol LDL Cholesterol Direct HDL Cholesterol Urine pH Urine WBC (Auto) Urine Creatinine Urine Total Protein Fluid Total Protein Vancomycin Trough Rheumatoid Factor Complement C4 Miscellaneous Test Crossmatch 10/04/16 10/04/16 10/04/16 06:30 11:45 17:54 WBC RBC Hgb Hct MCV MCH MCHC RDW Plt Count Lymph % (Auto) [place] % (Auto) Lymph # [place] # Baso # Seg Neutrophils % Seg Neuts % (Manual) Lymphocytes % (Manual) Monocytes % (Manual) Eosinophils % (Manual) Basophils % (Manual) Nucleated RBC % Seg Neutrophils # Seg Neutrophils # Man Lymphocytes # (Manual) Monocytes # (Manual) Eosinophils # (Manual) Basophils # (Manual) PT INR Fibrinogen dRVVT Confirm Interp Factor V Activity POC ABG pH POC ABG pCO2 POC ABG pO2 ABG pO2 ABG HCO3 ABG Base Excess ABG Hemoglobin Oxyhemoglobin Sodium 128 L Potassium Chloride 87.4 L Carbon Dioxide 20 L BUN 34 H Creatinine 2.9 H Glucose 127 H POC Glucose 158 H 160 H Lactic Acid Calcium 7.4 L Phosphorus Magnesium Direct Bilirubin AST ALT Alkaline Phosphatase Lactate Dehydrogenase Troponin T C-Reactive Protein Total Protein Albumin Prealbumin Triglycerides Cholesterol LDL Cholesterol Direct HDL Cholesterol Urine pH Urine WBC (Auto) Urine Creatinine Urine Total Protein Fluid Total Protein Vancomycin Trough Rheumatoid Factor Complement C4 Miscellaneous Test Crossmatch 10/04/16 10/05/16 10/05/16 23:25 04:30 05:00 WBC RBC 2.64 L Hgb 7.5 L Hct 22.6 L MCV MCH MCHC RDW 19.3 H Plt Count 80 L Lymph % (Auto) [place] % (Auto) Lymph # [place] # Baso # Seg Neutrophils % Seg Neuts % (Manual) Lymphocytes % (Manual) 12.0 L Monocytes % (Manual) Eosinophils % (Manual) Basophils % (Manual) Nucleated RBC % Seg Neutrophils # Seg Neutrophils # Man Lymphocytes # (Manual) Monocytes # (Manual) Eosinophils # (Manual) Basophils # (Manual) PT INR Fibrinogen dRVVT Confirm Interp Factor V Activity POC ABG pH 7.475 H POC ABG pCO2 33.3 L POC ABG pO2 140 H ABG pO2 ABG HCO3 ABG Base Excess ABG Hemoglobin Oxyhemoglobin Sodium Potassium Chloride Carbon Dioxide BUN Creatinine Glucose POC Glucose 141 H Lactic Acid Calcium Phosphorus Magnesium Direct Bilirubin AST ALT Alkaline Phosphatase Lactate Dehydrogenase Troponin T C-Reactive Protein Total Protein Albumin Prealbumin Triglycerides Cholesterol LDL Cholesterol Direct HDL Cholesterol Urine pH Urine WBC (Auto) Urine Creatinine Urine Total Protein Fluid Total Protein Vancomycin Trough Rheumatoid Factor Complement C4 Miscellaneous Test Crossmatch 10/05/16 10/05/16 10/05/16 05:00 05:09 12:58 WBC RBC Hgb Hct MCV MCH MCHC RDW Plt Count Lymph % (Auto) [place] % (Auto) Lymph # [place] # Baso # Seg Neutrophils % Seg Neuts % (Manual) Lymphocytes % (Manual) Monocytes % (Manual) Eosinophils % (Manual) Basophils % (Manual) Nucleated RBC % Seg Neutrophils # Seg Neutrophils # Man Lymphocytes # (Manual) Monocytes # (Manual) Eosinophils # (Manual) Basophils # (Manual) PT INR Fibrinogen dRVVT Confirm Interp Factor V Activity POC ABG pH POC ABG pCO2 POC ABG pO2 ABG pO2 ABG HCO3 ABG Base Excess ABG Hemoglobin Oxyhemoglobin Sodium 131 L Potassium Chloride 94.0 L Carbon Dioxide 20 L BUN 22 H Creatinine 2.0 H Glucose 123 H POC Glucose 166 H 179 H Lactic Acid Calcium 7.7 L Phosphorus 2.20 L D Magnesium Direct Bilirubin AST ALT Alkaline Phosphatase Lactate Dehydrogenase Troponin T C-Reactive Protein Total Protein Albumin Prealbumin Triglycerides Cholesterol LDL Cholesterol Direct HDL Cholesterol Urine pH Urine WBC (Auto) Urine Creatinine Urine Total Protein Fluid Total Protein Vancomycin Trough Rheumatoid Factor Complement C4 Miscellaneous Test Crossmatch 10/05/16 10/05/16 10/05/16 15:50 18:53 23:12 WBC RBC Hgb Hct MCV MCH MCHC RDW Plt Count Lymph % (Auto) [place] % (Auto) Lymph # [place] # Baso # Seg Neutrophils % Seg Neuts % (Manual) Lymphocytes % (Manual) Monocytes % (Manual) Eosinophils % (Manual) Basophils % (Manual) Nucleated RBC % Seg Neutrophils # Seg Neutrophils # Man Lymphocytes # (Manual) Monocytes # (Manual) Eosinophils # (Manual) Basophils # (Manual) PT INR Fibrinogen dRVVT Confirm Interp Factor V Activity POC ABG pH POC ABG pCO2 POC ABG pO2 ABG pO2 ABG HCO3 ABG Base Excess ABG Hemoglobin Oxyhemoglobin Sodium Potassium Chloride Carbon Dioxide BUN Creatinine Glucose POC Glucose 150 H 164 H Lactic Acid Calcium Phosphorus Magnesium Direct Bilirubin AST ALT Alkaline Phosphatase Lactate Dehydrogenase Troponin T C-Reactive Protein Total Protein Albumin Prealbumin Triglycerides Cholesterol LDL Cholesterol Direct HDL Cholesterol Urine pH Urine WBC (Auto) Urine Creatinine Urine Total Protein Fluid Total Protein Vancomycin Trough Rheumatoid Factor Complement C4 Miscellaneous Test Crossmatch See Detail 10/06/16 10/06/16 10/06/16 03:50 03:50 04:53 WBC RBC 3.00 L Hgb 8.6 L Hct 25.8 L MCV MCH MCHC RDW 17.9 H Plt Count 65 L Lymph % (Auto) [place] % (Auto) Lymph # [place] # Baso # Seg Neutrophils % Seg Neuts % (Manual) 30.0 L Lymphocytes % (Manual) 5.0 L Monocytes % (Manual) Eosinophils % (Manual) Basophils % (Manual) Nucleated RBC % Seg Neutrophils # Seg Neutrophils # Man Lymphocytes # (Manual) 0.4 L Monocytes # (Manual) Eosinophils # (Manual) Basophils # (Manual) PT INR Fibrinogen dRVVT Confirm Interp Factor V Activity POC ABG pH 7.310 L POC ABG pCO2 49.0 H POC ABG pO2 ABG pO2 ABG HCO3 ABG Base Excess ABG Hemoglobin Oxyhemoglobin Sodium 133 L Potassium Chloride 95.9 L Carbon Dioxide BUN 26 H Creatinine 2.0 H Glucose 116 H POC Glucose Lactic Acid Calcium 7.8 L Phosphorus Magnesium Direct Bilirubin AST ALT Alkaline Phosphatase Lactate Dehydrogenase Troponin T C-Reactive Protein Total Protein Albumin Prealbumin Triglycerides Cholesterol LDL Cholesterol Direct HDL Cholesterol Urine pH Urine WBC (Auto) Urine Creatinine Urine Total Protein Fluid Total Protein Vancomycin Trough Rheumatoid Factor Complement C4 Miscellaneous Test Crossmatch 10/06/16 10/06/16 10/06/16 05:23 11:52 18:34 WBC RBC Hgb Hct MCV MCH MCHC RDW Plt Count Lymph % (Auto) [place] % (Auto) Lymph # [place] # Baso # Seg Neutrophils % Seg Neuts % (Manual) Lymphocytes % (Manual) Monocytes % (Manual) Eosinophils % (Manual) Basophils % (Manual) Nucleated RBC % Seg Neutrophils # Seg Neutrophils # Man Lymphocytes # (Manual) Monocytes # (Manual) Eosinophils # (Manual) Basophils # (Manual) PT INR Fibrinogen dRVVT Confirm Interp Factor V Activity POC ABG pH POC ABG pCO2 POC ABG pO2 ABG pO2 ABG HCO3 ABG Base Excess ABG Hemoglobin Oxyhemoglobin Sodium Potassium Chloride Carbon Dioxide BUN Creatinine Glucose POC Glucose 126 H 116 H 129 H Lactic Acid Calcium Phosphorus Magnesium Direct Bilirubin AST ALT Alkaline Phosphatase Lactate Dehydrogenase Troponin T C-Reactive Protein Total Protein Albumin Prealbumin Triglycerides Cholesterol LDL Cholesterol Direct HDL Cholesterol Urine pH Urine WBC (Auto) Urine Creatinine Urine Total Protein Fluid Total Protein Vancomycin Trough Rheumatoid Factor Complement C4 Miscellaneous Test Crossmatch 10/07/16 10/07/16 10/07/16 03:45 05:00 10:00 WBC 17.0 H RBC 2.68 L Hgb 7.3 L Hct 25.3 L MCV MCH 27 L MCHC 29 L RDW 19.6 H Plt Count 74 L Lymph % (Auto) [place] % (Auto) Lymph # [place] # Baso # Seg Neutrophils % Seg Neuts % (Manual) Lymphocytes % (Manual) 12.0 L Monocytes % (Manual) Eosinophils % (Manual) Basophils % (Manual) Nucleated RBC % 4.0 H Seg Neutrophils # Seg Neutrophils # Man 10.7 H Lymphocytes # (Manual) Monocytes # (Manual) Eosinophils # (Manual) Basophils # (Manual) PT INR Fibrinogen dRVVT Confirm Interp Factor V Activity POC ABG pH POC ABG pCO2 POC ABG pO2 ABG pO2 ABG HCO3 ABG Base Excess ABG Hemoglobin Oxyhemoglobin Sodium 130 L Potassium 3.2 L Chloride 93.9 L Carbon Dioxide 20 L BUN 44 H Creatinine 2.7 H Glucose 129 H POC Glucose Lactic Acid Calcium 7.4 L Phosphorus Magnesium Direct Bilirubin AST ALT 6 L Alkaline Phosphatase 195 H Lactate Dehydrogenase Troponin T C-Reactive Protein Total Protein 4.9 L Albumin 1.0 L Prealbumin Triglycerides Cholesterol LDL Cholesterol Direct HDL Cholesterol Urine pH Urine WBC (Auto) Urine Creatinine Urine Total Protein Fluid Total Protein Vancomycin Trough Rheumatoid Factor Complement C4 Miscellaneous Test Flexitest 1 H Crossmatch 10/07/16 10/07/16 10/07/16 10:00 11:24 18:10 WBC RBC Hgb Hct MCV MCH MCHC RDW Plt Count Lymph % (Auto) [place] % (Auto) Lymph # [place] # Baso # Seg Neutrophils % Seg Neuts % (Manual) Lymphocytes % (Manual) Monocytes % (Manual) Eosinophils % (Manual) Basophils % (Manual) Nucleated RBC % Seg Neutrophils # Seg Neutrophils # Man Lymphocytes # (Manual) Monocytes # (Manual) Eosinophils # (Manual) Basophils # (Manual) PT INR Fibrinogen dRVVT Confirm Interp Factor V Activity POC ABG pH POC ABG pCO2 POC ABG pO2 ABG pO2 ABG HCO3 ABG Base Excess ABG Hemoglobin Oxyhemoglobin Sodium Potassium Chloride Carbon Dioxide BUN Creatinine Glucose POC Glucose 116 H 130 H Lactic Acid Calcium Phosphorus Magnesium Direct Bilirubin AST ALT Alkaline Phosphatase Lactate Dehydrogenase Troponin T C-Reactive Protein 19.40 H Total Protein Albumin Prealbumin Triglycerides Cholesterol LDL Cholesterol Direct HDL Cholesterol Urine pH Urine WBC (Auto) Urine Creatinine Urine Total Protein Fluid Total Protein Vancomycin Trough Rheumatoid Factor Complement C4 Miscellaneous Test Crossmatch 10/07/16 10/08/16 10/08/16 18:30 00:00 04:00 WBC RBC Hgb Hct MCV MCH MCHC RDW Plt Count Lymph % (Auto) [place] % (Auto) Lymph # [place] # Baso # Seg Neutrophils % Seg Neuts % (Manual) Lymphocytes % (Manual) Monocytes % (Manual) Eosinophils % (Manual) Basophils % (Manual) Nucleated RBC % Seg Neutrophils # Seg Neutrophils # Man Lymphocytes # (Manual) Monocytes # (Manual) Eosinophils # (Manual) Basophils # (Manual) PT INR Fibrinogen dRVVT Confirm Interp Factor V Activity POC ABG pH POC ABG pCO2 POC ABG pO2 ABG pO2 ABG HCO3 ABG Base Excess ABG Hemoglobin Oxyhemoglobin Sodium 132 L Potassium 3.3 L Chloride 93.6 L Carbon Dioxide 17 L BUN 59 H Creatinine 2.7 H Glucose 121 H POC Glucose 122 H Lactic Acid Calcium 7.6 L Phosphorus Magnesium Direct Bilirubin AST ALT Alkaline Phosphatase Lactate Dehydrogenase Troponin T C-Reactive Protein Total Protein Albumin Prealbumin Triglycerides Cholesterol LDL Cholesterol Direct HDL Cholesterol Urine pH Urine WBC (Auto) > 182.0 H Urine Creatinine Urine Total Protein Fluid Total Protein Vancomycin Trough Rheumatoid Factor Complement C4 Miscellaneous Test Crossmatch 10/08/16 10/08/16 10/08/16 04:30 05:30 11:51 WBC RBC 5.15 H Hgb 14.4 H D Hct 44.5 H D MCV MCH MCHC RDW 19.5 H Plt Count 56 L Lymph % (Auto) [place] % (Auto) Lymph # [place] # Baso # Seg Neutrophils % Seg Neuts % (Manual) 24.0 L Lymphocytes % (Manual) 8.0 L Monocytes % (Manual) Eosinophils % (Manual) Basophils % (Manual) Nucleated RBC % 9.0 H Seg Neutrophils # Seg Neutrophils # Man Lymphocytes # (Manual) 0.7 L Monocytes # (Manual) Eosinophils # (Manual) Basophils # (Manual) PT INR Fibrinogen dRVVT Confirm Interp Factor V Activity POC ABG pH POC ABG pCO2 POC ABG pO2 ABG pO2 ABG HCO3 ABG Base Excess ABG Hemoglobin Oxyhemoglobin Sodium Potassium Chloride Carbon Dioxide BUN Creatinine Glucose POC Glucose 125 H 150 H Lactic Acid Calcium Phosphorus Magnesium Direct Bilirubin AST ALT Alkaline Phosphatase Lactate Dehydrogenase Troponin T C-Reactive Protein Total Protein Albumin Prealbumin Triglycerides Cholesterol LDL Cholesterol Direct HDL Cholesterol Urine pH Urine WBC (Auto) Urine Creatinine Urine Total Protein Fluid Total Protein Vancomycin Trough Rheumatoid Factor Complement C4 Miscellaneous Test Crossmatch 10/08/16 10/08/16 10/08/16 12:49 17:07 19:30 WBC RBC Hgb 7.1 L D Hct 22.4 L D MCV MCH MCHC RDW Plt Count Lymph % (Auto) [place] % (Auto) Lymph # [place] # Baso # Seg Neutrophils % Seg Neuts % (Manual) Lymphocytes % (Manual) Monocytes % (Manual) Eosinophils % (Manual) Basophils % (Manual) Nucleated RBC % Seg Neutrophils # Seg Neutrophils # Man Lymphocytes # (Manual) Monocytes # (Manual) Eosinophils # (Manual) Basophils # (Manual) PT INR Fibrinogen dRVVT Confirm Interp Factor V Activity POC ABG pH POC ABG pCO2 28.2 L POC ABG pO2 111 H ABG pO2 ABG HCO3 ABG Base Excess ABG Hemoglobin Oxyhemoglobin Sodium Potassium Chloride Carbon Dioxide BUN Creatinine Glucose POC Glucose 145 H Lactic Acid Calcium Phosphorus Magnesium Direct Bilirubin AST ALT Alkaline Phosphatase Lactate Dehydrogenase Troponin T C-Reactive Protein Total Protein Albumin Prealbumin Triglycerides Cholesterol LDL Cholesterol Direct HDL Cholesterol Urine pH Urine WBC (Auto) Urine Creatinine Urine Total Protein Fluid Total Protein Vancomycin Trough Rheumatoid Factor Complement C4 Miscellaneous Test Crossmatch 10/08/16 10/09/16 10/09/16 19:30 03:45 03:45 WBC 12.6 H RBC 2.36 L Hgb 6.7 L Hct 21.1 L MCV MCH MCHC RDW 19.5 H Plt Count 75 L Lymph % (Auto) [place] % (Auto) Lymph # [place] # Baso # Seg Neutrophils % Seg Neuts % (Manual) Lymphocytes % (Manual) Monocytes % (Manual) 10.0 H Eosinophils % (Manual) Basophils % (Manual) Nucleated RBC % 3.0 H Seg Neutrophils # Seg Neutrophils # Man Lymphocytes # (Manual) Monocytes # (Manual) 1.3 H Eosinophils # (Manual) Basophils # (Manual) PT 18.0 H INR 1.41 H Fibrinogen dRVVT Confirm Interp Factor V Activity POC ABG pH POC ABG pCO2 POC ABG pO2 ABG pO2 ABG HCO3 ABG Base Excess ABG Hemoglobin Oxyhemoglobin Sodium 135 L Potassium Chloride Carbon Dioxide 17 L BUN 81 H Creatinine 3.2 H Glucose 109 H POC Glucose Lactic Acid Calcium 7.4 L Phosphorus 4.60 H D Magnesium Direct Bilirubin AST ALT Alkaline Phosphatase Lactate Dehydrogenase Troponin T C-Reactive Protein Total Protein Albumin Prealbumin Triglycerides Cholesterol LDL Cholesterol Direct HDL Cholesterol Urine pH Urine WBC (Auto) Urine Creatinine Urine Total Protein Fluid Total Protein Vancomycin Trough Rheumatoid Factor Complement C4 Miscellaneous Test Crossmatch 10/09/16 10/09/16 10/09/16 03:45 05:14 07:20 WBC RBC Hgb Hct MCV MCH MCHC RDW Plt Count Lymph % (Auto) [place] % (Auto) Lymph # [place] # Baso # Seg Neutrophils % Seg Neuts % (Manual) Lymphocytes % (Manual) Monocytes % (Manual) Eosinophils % (Manual) Basophils % (Manual) Nucleated RBC % Seg Neutrophils # Seg Neutrophils # Man Lymphocytes # (Manual) Monocytes # (Manual) Eosinophils # (Manual) Basophils # (Manual) PT 19.0 H INR 1.51 H Fibrinogen dRVVT Confirm Interp Factor V Activity POC ABG pH POC ABG pCO2 POC ABG pO2 ABG pO2 ABG HCO3 ABG Base Excess ABG Hemoglobin Oxyhemoglobin Sodium Potassium Chloride Carbon Dioxide BUN Creatinine Glucose POC Glucose 151 H Lactic Acid Calcium Phosphorus Magnesium Direct Bilirubin AST ALT Alkaline Phosphatase Lactate Dehydrogenase Troponin T C-Reactive Protein Total Protein Albumin Prealbumin Triglycerides Cholesterol LDL Cholesterol Direct HDL Cholesterol Urine pH Urine WBC (Auto) Urine Creatinine Urine Total Protein Fluid Total Protein Vancomycin Trough Rheumatoid Factor Complement C4 Miscellaneous Test Crossmatch See Detail 10/09/16 10/09/16 10/09/16 11:46 16:20 16:43 WBC RBC Hgb 7.2 L Hct 22.2 L MCV MCH MCHC RDW Plt Count Lymph % (Auto) [place] % (Auto) Lymph # [place] # Baso # Seg Neutrophils % Seg Neuts % (Manual) Lymphocytes % (Manual) Monocytes % (Manual) Eosinophils % (Manual) Basophils % (Manual) Nucleated RBC % Seg Neutrophils # Seg Neutrophils # Man Lymphocytes # (Manual) Monocytes # (Manual) Eosinophils # (Manual) Basophils # (Manual) PT INR Fibrinogen dRVVT Confirm Interp Factor V Activity POC ABG pH POC ABG pCO2 POC ABG pO2 ABG pO2 ABG HCO3 ABG Base Excess ABG Hemoglobin Oxyhemoglobin Sodium Potassium Chloride Carbon Dioxide BUN Creatinine Glucose POC Glucose 133 H 141 H Lactic Acid Calcium Phosphorus Magnesium Direct Bilirubin AST ALT Alkaline Phosphatase Lactate Dehydrogenase Troponin T C-Reactive Protein Total Protein Albumin Prealbumin Triglycerides Cholesterol LDL Cholesterol Direct HDL Cholesterol Urine pH Urine WBC (Auto) Urine Creatinine Urine Total Protein Fluid Total Protein Vancomycin Trough Rheumatoid Factor Complement C4 Miscellaneous Test Crossmatch 10/10/16 10/10/16 10/10/16 05:00 05:00 11:19 WBC 18.5 H RBC 2.19 L Hgb 6.4 L Hct 19.6 L* MCV MCH MCHC RDW 19.3 H Plt Count 93 L Lymph % (Auto) [place] % (Auto) Lymph # [place] # Baso # Seg Neutrophils % Seg Neuts % (Manual) Lymphocytes % (Manual) 10.0 L Monocytes % (Manual) Eosinophils % (Manual) Basophils % (Manual) Nucleated RBC % 4.0 H Seg Neutrophils # Seg Neutrophils # Man 11.3 H Lymphocytes # (Manual) Monocytes # (Manual) Eosinophils # (Manual) Basophils # (Manual) PT INR Fibrinogen dRVVT Confirm Interp Factor V Activity POC ABG pH POC ABG pCO2 POC ABG pO2 ABG pO2 ABG HCO3 ABG Base Excess ABG Hemoglobin Oxyhemoglobin Sodium Potassium 5.7 H D Chloride Carbon Dioxide 16 L BUN 94 H Creatinine 3.1 H Glucose 131 H POC Glucose 153 H Lactic Acid Calcium 8.2 L Phosphorus 5.10 H Magnesium 2.40 H Direct Bilirubin 0.3 H AST ALT < 5 L Alkaline Phosphatase 319 H Lactate Dehydrogenase Troponin T C-Reactive Protein Total Protein 5.1 L Albumin 1.0 L Prealbumin Triglycerides Cholesterol LDL Cholesterol Direct HDL Cholesterol Urine pH Urine WBC (Auto) Urine Creatinine Urine Total Protein Fluid Total Protein Vancomycin Trough Rheumatoid Factor Complement C4 Miscellaneous Test Crossmatch 10/10/16 10/10/16 10/11/16 17:50 23:30 04:15 WBC RBC Hgb Hct MCV MCH MCHC RDW Plt Count Lymph % (Auto) [place] % (Auto) Lymph # [place] # Baso # Seg Neutrophils % Seg Neuts % (Manual) Lymphocytes % (Manual) Monocytes % (Manual) Eosinophils % (Manual) Basophils % (Manual) Nucleated RBC % Seg Neutrophils # Seg Neutrophils # Man Lymphocytes # (Manual) Monocytes # (Manual) Eosinophils # (Manual) Basophils # (Manual) PT INR Fibrinogen dRVVT Confirm Interp Factor V Activity POC ABG pH POC ABG pCO2 POC ABG pO2 ABG pO2 ABG HCO3 ABG Base Excess ABG Hemoglobin Oxyhemoglobin Sodium Potassium Chloride 96.4 L Carbon Dioxide 21 L BUN 57 H Creatinine 2.1 H Glucose 151 H POC Glucose 146 H 141 H Lactic Acid Calcium 8.3 L Phosphorus Magnesium Direct Bilirubin AST ALT Alkaline Phosphatase Lactate Dehydrogenase Troponin T C-Reactive Protein Total Protein Albumin Prealbumin Triglycerides Cholesterol LDL Cholesterol Direct HDL Cholesterol Urine pH Urine WBC (Auto) Urine Creatinine Urine Total Protein Fluid Total Protein Vancomycin Trough Rheumatoid Factor Complement C4 Miscellaneous Test Crossmatch 10/11/16 10/11/16 10/11/16 04:15 04:15 05:30 WBC 28.3 H RBC 3.12 L Hgb 9.3 L Hct 28.7 L D MCV MCH MCHC RDW 17.7 H Plt Count 128 L Lymph % (Auto) [place] % (Auto) Lymph # [place] # Baso # Seg Neutrophils % Seg Neuts % (Manual) Lymphocytes % (Manual) Monocytes % (Manual) Eosinophils % (Manual) Basophils % (Manual) Nucleated RBC % Seg Neutrophils # Seg Neutrophils # Man Lymphocytes # (Manual) Monocytes # (Manual) Eosinophils # (Manual) Basophils # (Manual) PT INR Fibrinogen dRVVT Confirm Interp Factor V Activity POC ABG pH POC ABG pCO2 POC ABG pO2 ABG pO2 ABG HCO3 ABG Base Excess ABG Hemoglobin Oxyhemoglobin Sodium Potassium Chloride Carbon Dioxide BUN Creatinine Glucose POC Glucose 167 H Lactic Acid Calcium Phosphorus Magnesium Direct Bilirubin AST ALT Alkaline Phosphatase Lactate Dehydrogenase Troponin T C-Reactive Protein 15.80 H Total Protein Albumin Prealbumin Triglycerides Cholesterol LDL Cholesterol Direct HDL Cholesterol Urine pH Urine WBC (Auto) Urine Creatinine Urine Total Protein Fluid Total Protein Vancomycin Trough Rheumatoid Factor Complement C4 Miscellaneous Test Crossmatch 10/11/16 10/11/16 10/11/16 11:40 15:49 23:57 WBC RBC Hgb Hct MCV MCH MCHC RDW Plt Count Lymph % (Auto) [place] % (Auto) Lymph # [place] # Baso # Seg Neutrophils % Seg Neuts % (Manual) Lymphocytes % (Manual) Monocytes % (Manual) Eosinophils % (Manual) Basophils % (Manual) Nucleated RBC % Seg Neutrophils # Seg Neutrophils # Man Lymphocytes # (Manual) Monocytes # (Manual) Eosinophils # (Manual) Basophils # (Manual) PT INR Fibrinogen dRVVT Confirm Interp Factor V Activity POC ABG pH POC ABG pCO2 POC ABG pO2 ABG pO2 ABG HCO3 ABG Base Excess ABG Hemoglobin Oxyhemoglobin Sodium Potassium Chloride Carbon Dioxide BUN Creatinine Glucose POC Glucose 139 H 168 H 161 H Lactic Acid Calcium Phosphorus Magnesium Direct Bilirubin AST ALT Alkaline Phosphatase Lactate Dehydrogenase Troponin T C-Reactive Protein Total Protein Albumin Prealbumin Triglycerides Cholesterol LDL Cholesterol Direct HDL Cholesterol Urine pH Urine WBC (Auto) Urine Creatinine Urine Total Protein Fluid Total Protein Vancomycin Trough Rheumatoid Factor Complement C4 Miscellaneous Test Crossmatch 10/12/16 10/12/16 10/12/16 04:40 04:40 05:44 WBC 22.5 H RBC 2.88 L Hgb 8.8 L Hct 26.8 L MCV MCH MCHC RDW 17.8 H Plt Count Lymph % (Auto) [place] % (Auto) Lymph # [place] # Baso # Seg Neutrophils % Seg Neuts % (Manual) Lymphocytes % (Manual) Monocytes % (Manual) Eosinophils % (Manual) Basophils % (Manual) Nucleated RBC % Seg Neutrophils # Seg Neutrophils # Man Lymphocytes # (Manual) Monocytes # (Manual) Eosinophils # (Manual) Basophils # (Manual) PT INR Fibrinogen dRVVT Confirm Interp Factor V Activity POC ABG pH POC ABG pCO2 POC ABG pO2 ABG pO2 ABG HCO3 ABG Base Excess ABG Hemoglobin Oxyhemoglobin Sodium 134 L Potassium Chloride 93.0 L Carbon Dioxide BUN 74 H Creatinine 2.5 H Glucose 137 H POC Glucose 158 H Lactic Acid Calcium 8.2 L Phosphorus Magnesium Direct Bilirubin AST ALT Alkaline Phosphatase Lactate Dehydrogenase Troponin T C-Reactive Protein Total Protein Albumin Prealbumin Triglycerides Cholesterol LDL Cholesterol Direct HDL Cholesterol Urine pH Urine WBC (Auto) Urine Creatinine Urine Total Protein Fluid Total Protein Vancomycin Trough Rheumatoid Factor Complement C4 Miscellaneous Test Crossmatch 10/12/16 10/12/16 10/12/16 12:27 18:18 23:46 WBC RBC Hgb Hct MCV MCH MCHC RDW Plt Count Lymph % (Auto) [place] % (Auto) Lymph # [place] # Baso # Seg Neutrophils % Seg Neuts % (Manual) Lymphocytes % (Manual) Monocytes % (Manual) Eosinophils % (Manual) Basophils % (Manual) Nucleated RBC % Seg Neutrophils # Seg Neutrophils # Man Lymphocytes # (Manual) Monocytes # (Manual) Eosinophils # (Manual) Basophils # (Manual) PT INR Fibrinogen dRVVT Confirm Interp Factor V Activity POC ABG pH POC ABG pCO2 POC ABG pO2 ABG pO2 ABG HCO3 ABG Base Excess ABG Hemoglobin Oxyhemoglobin Sodium Potassium Chloride Carbon Dioxide BUN Creatinine Glucose POC Glucose 153 H 140 H 150 H Lactic Acid Calcium Phosphorus Magnesium Direct Bilirubin AST ALT Alkaline Phosphatase Lactate Dehydrogenase Troponin T C-Reactive Protein Total Protein Albumin Prealbumin Triglycerides Cholesterol LDL Cholesterol Direct HDL Cholesterol Urine pH Urine WBC (Auto) Urine Creatinine Urine Total Protein Fluid Total Protein Vancomycin Trough Rheumatoid Factor Complement C4 Miscellaneous Test Crossmatch 10/13/16 10/13/16 10/13/16 06:22 09:20 12:29 WBC RBC Hgb Hct MCV MCH MCHC RDW Plt Count Lymph % (Auto) [place] % (Auto) Lymph # [place] # Baso # Seg Neutrophils % Seg Neuts % (Manual) Lymphocytes % (Manual) Monocytes % (Manual) Eosinophils % (Manual) Basophils % (Manual) Nucleated RBC % Seg Neutrophils # Seg Neutrophils # Man Lymphocytes # (Manual) Monocytes # (Manual) Eosinophils # (Manual) Basophils # (Manual) PT INR Fibrinogen dRVVT Confirm Interp Factor V Activity POC ABG pH POC ABG pCO2 POC ABG pO2 ABG pO2 ABG HCO3 ABG Base Excess ABG Hemoglobin Oxyhemoglobin Sodium Potassium Chloride Carbon Dioxide BUN Creatinine Glucose POC Glucose 165 H 193 H Lactic Acid Calcium Phosphorus Magnesium Direct Bilirubin AST ALT Alkaline Phosphatase Lactate Dehydrogenase Troponin T C-Reactive Protein Total Protein Albumin Prealbumin Triglycerides Cholesterol LDL Cholesterol Direct HDL Cholesterol Urine pH Urine WBC (Auto) Urine Creatinine Urine Total Protein Fluid Total Protein Vancomycin Trough Rheumatoid Factor Complement C4 Miscellaneous Test Flexitest 1 H Crossmatch 10/13/16 10/13/16 10/13/16 18:09 Unknown Unknown WBC 23.4 H RBC 2.83 L Hgb 8.7 L Hct 26.1 L MCV MCH MCHC RDW 18.1 H Plt Count Lymph % (Auto) [place] % (Auto) Lymph # [place] # Baso # Seg Neutrophils % Seg Neuts % (Manual) Lymphocytes % (Manual) Monocytes % (Manual) Eosinophils % (Manual) Basophils % (Manual) Nucleated RBC % Seg Neutrophils # Seg Neutrophils # Man Lymphocytes # (Manual) Monocytes # (Manual) Eosinophils # (Manual) Basophils # (Manual) PT INR Fibrinogen dRVVT Confirm Interp Factor V Activity POC ABG pH POC ABG pCO2 POC ABG pO2 ABG pO2 ABG HCO3 ABG Base Excess ABG Hemoglobin Oxyhemoglobin Sodium Potassium Chloride 95.8 L Carbon Dioxide BUN 82 H Creatinine 2.6 H Glucose 152 H POC Glucose 166 H Lactic Acid Calcium Phosphorus Magnesium Direct Bilirubin AST ALT Alkaline Phosphatase Lactate Dehydrogenase Troponin T C-Reactive Protein Total Protein Albumin Prealbumin Triglycerides Cholesterol LDL Cholesterol Direct HDL Cholesterol Urine pH Urine WBC (Auto) Urine Creatinine Urine Total Protein Fluid Total Protein Vancomycin Trough Rheumatoid Factor Complement C4 Miscellaneous Test Crossmatch 10/14/16 10/14/16 10/14/16 05:38 06:35 08:10 WBC 20.7 H RBC 2.81 L Hgb 8.4 L Hct 27.2 L MCV MCH MCHC RDW 19.4 H Plt Count Lymph % (Auto) [place] % (Auto) Lymph # [place] # Baso # Seg Neutrophils % Seg Neuts % (Manual) Lymphocytes % (Manual) Monocytes % (Manual) Eosinophils % (Manual) Basophils % (Manual) Nucleated RBC % Seg Neutrophils # Seg Neutrophils # Man Lymphocytes # (Manual) Monocytes # (Manual) Eosinophils # (Manual) Basophils # (Manual) PT INR Fibrinogen dRVVT Confirm Interp Factor V Activity POC ABG pH POC ABG pCO2 POC ABG pO2 ABG pO2 ABG HCO3 ABG Base Excess ABG Hemoglobin Oxyhemoglobin Sodium Potassium Chloride Carbon Dioxide BUN 58 H Creatinine 1.9 H Glucose 169 H POC Glucose 195 H Lactic Acid Calcium Phosphorus Magnesium Direct Bilirubin AST ALT Alkaline Phosphatase Lactate Dehydrogenase Troponin T C-Reactive Protein Total Protein Albumin Prealbumin Triglycerides Cholesterol LDL Cholesterol Direct HDL Cholesterol Urine pH Urine WBC (Auto) Urine Creatinine Urine Total Protein Fluid Total Protein Vancomycin Trough Rheumatoid Factor Complement C4 Miscellaneous Test Crossmatch 10/14/16 10/14/16 10/14/16 11:44 17:13 23:28 WBC RBC Hgb Hct MCV MCH MCHC RDW Plt Count Lymph % (Auto) [place] % (Auto) Lymph # [place] # Baso # Seg Neutrophils % Seg Neuts % (Manual) Lymphocytes % (Manual) Monocytes % (Manual) Eosinophils % (Manual) Basophils % (Manual) Nucleated RBC % Seg Neutrophils # Seg Neutrophils # Man Lymphocytes # (Manual) Monocytes # (Manual) Eosinophils # (Manual) Basophils # (Manual) PT INR Fibrinogen dRVVT Confirm Interp Factor V Activity POC ABG pH POC ABG pCO2 POC ABG pO2 ABG pO2 ABG HCO3 ABG Base Excess ABG Hemoglobin Oxyhemoglobin Sodium Potassium Chloride Carbon Dioxide BUN Creatinine Glucose POC Glucose 174 H 121 H 151 H Lactic Acid Calcium Phosphorus Magnesium Direct Bilirubin AST ALT Alkaline Phosphatase Lactate Dehydrogenase Troponin T C-Reactive Protein Total Protein Albumin Prealbumin Triglycerides Cholesterol LDL Cholesterol Direct HDL Cholesterol Urine pH Urine WBC (Auto) Urine Creatinine Urine Total Protein Fluid Total Protein Vancomycin Trough Rheumatoid Factor Complement C4 Miscellaneous Test Crossmatch 10/15/16 10/15/16 10/15/16 05:06 12:26 17:48 WBC RBC Hgb Hct MCV MCH MCHC RDW Plt Count Lymph % (Auto) [place] % (Auto) Lymph # [place] # Baso # Seg Neutrophils % Seg Neuts % (Manual) Lymphocytes % (Manual) Monocytes % (Manual) Eosinophils % (Manual) Basophils % (Manual) Nucleated RBC % Seg Neutrophils # Seg Neutrophils # Man Lymphocytes # (Manual) Monocytes # (Manual) Eosinophils # (Manual) Basophils # (Manual) PT INR Fibrinogen dRVVT Confirm Interp Factor V Activity POC ABG pH POC ABG pCO2 POC ABG pO2 ABG pO2 ABG HCO3 ABG Base Excess ABG Hemoglobin Oxyhemoglobin Sodium Potassium Chloride Carbon Dioxide BUN Creatinine Glucose POC Glucose 151 H 149 H 153 H Lactic Acid Calcium Phosphorus Magnesium Direct Bilirubin AST ALT Alkaline Phosphatase Lactate Dehydrogenase Troponin T C-Reactive Protein Total Protein Albumin Prealbumin Triglycerides Cholesterol LDL Cholesterol Direct HDL Cholesterol Urine pH Urine WBC (Auto) Urine Creatinine Urine Total Protein Fluid Total Protein Vancomycin Trough Rheumatoid Factor Complement C4 Miscellaneous Test Crossmatch 10/15/16 10/15/16 10/16/16 Unknown Unknown 00:02 WBC 23.4 H RBC 2.78 L Hgb 8.5 L Hct 25.7 L MCV MCH MCHC RDW 18.7 H Plt Count Lymph % (Auto) [place] % (Auto) Lymph # [place] # Baso # Seg Neutrophils % Seg Neuts % (Manual) Lymphocytes % (Manual) Monocytes % (Manual) Eosinophils % (Manual) Basophils % (Manual) Nucleated RBC % Seg Neutrophils # Seg Neutrophils # Man Lymphocytes # (Manual) Monocytes # (Manual) Eosinophils # (Manual) Basophils # (Manual) PT INR Fibrinogen dRVVT Confirm Interp Factor V Activity POC ABG pH POC ABG pCO2 POC ABG pO2 ABG pO2 ABG HCO3 ABG Base Excess ABG Hemoglobin Oxyhemoglobin Sodium Potassium Chloride Carbon Dioxide BUN 73 H Creatinine 2.3 H Glucose 120 H POC Glucose 137 H Lactic Acid Calcium Phosphorus Magnesium Direct Bilirubin AST ALT Alkaline Phosphatase Lactate Dehydrogenase Troponin T C-Reactive Protein Total Protein Albumin Prealbumin Triglycerides Cholesterol LDL Cholesterol Direct HDL Cholesterol Urine pH Urine WBC (Auto) Urine Creatinine Urine Total Protein Fluid Total Protein Vancomycin Trough Rheumatoid Factor Complement C4 Miscellaneous Test Crossmatch 10/16/16 10/16/16 10/16/16 05:44 06:25 06:25 WBC 22.5 H RBC 2.76 L Hgb 8.3 L Hct 25.2 L MCV MCH MCHC RDW 18.3 H Plt Count Lymph % (Auto) [place] % (Auto) Lymph # [place] # Baso # Seg Neutrophils % Seg Neuts % (Manual) Lymphocytes % (Manual) Monocytes % (Manual) Eosinophils % (Manual) Basophils % (Manual) Nucleated RBC % Seg Neutrophils # Seg Neutrophils # Man Lymphocytes # (Manual) Monocytes # (Manual) Eosinophils # (Manual) Basophils # (Manual) PT INR Fibrinogen dRVVT Confirm Interp Factor V Activity POC ABG pH POC ABG pCO2 POC ABG pO2 ABG pO2 ABG HCO3 ABG Base Excess ABG Hemoglobin Oxyhemoglobin Sodium Potassium Chloride Carbon Dioxide BUN 92 H Creatinine 3.0 H Glucose 138 H POC Glucose 110 H Lactic Acid Calcium Phosphorus Magnesium Direct Bilirubin AST ALT Alkaline Phosphatase Lactate Dehydrogenase Troponin T C-Reactive Protein Total Protein Albumin Prealbumin Triglycerides Cholesterol LDL Cholesterol Direct HDL Cholesterol Urine pH Urine WBC (Auto) Urine Creatinine Urine Total Protein Fluid Total Protein Vancomycin Trough Rheumatoid Factor Complement C4 Miscellaneous Test Crossmatch 10/16/16 10/16/16 10/16/16 11:27 11:48 17:36 WBC RBC Hgb Hct MCV MCH MCHC RDW Plt Count Lymph % (Auto) [place] % (Auto) Lymph # [place] # Baso # Seg Neutrophils % Seg Neuts % (Manual) Lymphocytes % (Manual) Monocytes % (Manual) Eosinophils % (Manual) Basophils % (Manual) Nucleated RBC % Seg Neutrophils # Seg Neutrophils # Man Lymphocytes # (Manual) Monocytes # (Manual) Eosinophils # (Manual) Basophils # (Manual) PT INR Fibrinogen dRVVT Confirm Interp Factor V Activity POC ABG pH 7.582 H POC ABG pCO2 27.4 L POC ABG pO2 110 H ABG pO2 ABG HCO3 ABG Base Excess ABG Hemoglobin Oxyhemoglobin Sodium Potassium Chloride Carbon Dioxide BUN Creatinine Glucose POC Glucose 121 H 133 H Lactic Acid Calcium Phosphorus Magnesium Direct Bilirubin AST ALT Alkaline Phosphatase Lactate Dehydrogenase Troponin T C-Reactive Protein Total Protein Albumin Prealbumin Triglycerides Cholesterol LDL Cholesterol Direct HDL Cholesterol Urine pH Urine WBC (Auto) Urine Creatinine Urine Total Protein Fluid Total Protein Vancomycin Trough Rheumatoid Factor Complement C4 Miscellaneous Test Crossmatch 10/16/16 10/17/16 10/17/16 20:48 04:24 04:24 WBC 21.4 H RBC 2.72 L Hgb 8.0 L Hct 25.2 L MCV MCH MCHC RDW 18.0 H Plt Count Lymph % (Auto) [place] % (Auto) Lymph # [place] # Baso # Seg Neutrophils % Seg Neuts % (Manual) Lymphocytes % (Manual) Monocytes % (Manual) Eosinophils % (Manual) Basophils % (Manual) Nucleated RBC % Seg Neutrophils # Seg Neutrophils # Man Lymphocytes # (Manual) Monocytes # (Manual) Eosinophils # (Manual) Basophils # (Manual) PT INR Fibrinogen dRVVT Confirm Interp Factor V Activity POC ABG pH 7.561 H POC ABG pCO2 24.4 L POC ABG pO2 77 L ABG pO2 ABG HCO3 ABG Base Excess ABG Hemoglobin Oxyhemoglobin Sodium 148 H Potassium Chloride Carbon Dioxide BUN 104 H Creatinine 3.0 H Glucose 149 H POC Glucose Lactic Acid Calcium Phosphorus Magnesium Direct Bilirubin AST ALT Alkaline Phosphatase 138 H Lactate Dehydrogenase Troponin T C-Reactive Protein Total Protein 6.2 L Albumin 1.5 L Prealbumin Triglycerides Cholesterol LDL Cholesterol Direct HDL Cholesterol Urine pH Urine WBC (Auto) Urine Creatinine Urine Total Protein Fluid Total Protein Vancomycin Trough Rheumatoid Factor Complement C4 Miscellaneous Test Crossmatch 10/17/16 10/17/16 10/17/16 06:02 12:17 17:14 WBC RBC Hgb Hct MCV MCH MCHC RDW Plt Count Lymph % (Auto) [place] % (Auto) Lymph # [place] # Baso # Seg Neutrophils % Seg Neuts % (Manual) Lymphocytes % (Manual) Monocytes % (Manual) Eosinophils % (Manual) Basophils % (Manual) Nucleated RBC % Seg Neutrophils # Seg Neutrophils # Man Lymphocytes # (Manual) Monocytes # (Manual) Eosinophils # (Manual) Basophils # (Manual) PT INR Fibrinogen dRVVT Confirm Interp Factor V Activity POC ABG pH POC ABG pCO2 POC ABG pO2 ABG pO2 ABG HCO3 ABG Base Excess ABG Hemoglobin Oxyhemoglobin Sodium Potassium Chloride Carbon Dioxide BUN Creatinine Glucose POC Glucose 170 H 167 H 126 H Lactic Acid Calcium Phosphorus Magnesium Direct Bilirubin AST ALT Alkaline Phosphatase Lactate Dehydrogenase Troponin T C-Reactive Protein Total Protein Albumin Prealbumin Triglycerides Cholesterol LDL Cholesterol Direct HDL Cholesterol Urine pH Urine WBC (Auto) Urine Creatinine Urine Total Protein Fluid Total Protein Vancomycin Trough Rheumatoid Factor Complement C4 Miscellaneous Test Crossmatch 10/17/16 10/18/16 10/18/16 23:17 04:00 04:00 WBC 20.7 H RBC 2.47 L Hgb 7.4 L Hct 22.9 L MCV MCH MCHC RDW 17.5 H Plt Count Lymph % (Auto) [place] % (Auto) Lymph # [place] # Baso # Seg Neutrophils % Seg Neuts % (Manual) Lymphocytes % (Manual) Monocytes % (Manual) Eosinophils % (Manual) Basophils % (Manual) Nucleated RBC % Seg Neutrophils # Seg Neutrophils # Man Lymphocytes # (Manual) Monocytes # (Manual) Eosinophils # (Manual) Basophils # (Manual) PT INR Fibrinogen dRVVT Confirm Interp Factor V Activity POC ABG pH POC ABG pCO2 POC ABG pO2 ABG pO2 ABG HCO3 ABG Base Excess ABG Hemoglobin Oxyhemoglobin Sodium 149 H Potassium Chloride 107.9 H Carbon Dioxide 20 L BUN 117 H Creatinine 3.2 H Glucose 119 H POC Glucose 121 H Lactic Acid Calcium Phosphorus Magnesium Direct Bilirubin AST ALT Alkaline Phosphatase Lactate Dehydrogenase Troponin T C-Reactive Protein Total Protein Albumin Prealbumin Triglycerides Cholesterol LDL Cholesterol Direct HDL Cholesterol Urine pH Urine WBC (Auto) Urine Creatinine Urine Total Protein Fluid Total Protein Vancomycin Trough Rheumatoid Factor Complement C4 Miscellaneous Test Crossmatch 10/18/16 10/18/16 10/18/16 05:23 10:46 17:30 WBC RBC Hgb Hct MCV MCH MCHC RDW Plt Count Lymph % (Auto) [place] % (Auto) Lymph # [place] # Baso # Seg Neutrophils % Seg Neuts % (Manual) Lymphocytes % (Manual) Monocytes % (Manual) Eosinophils % (Manual) Basophils % (Manual) Nucleated RBC % Seg Neutrophils # Seg Neutrophils # Man Lymphocytes # (Manual) Monocytes # (Manual) Eosinophils # (Manual) Basophils # (Manual) PT INR Fibrinogen dRVVT Confirm Interp Factor V Activity POC ABG pH POC ABG pCO2 POC ABG pO2 ABG pO2 ABG HCO3 ABG Base Excess ABG Hemoglobin Oxyhemoglobin Sodium Potassium Chloride Carbon Dioxide BUN Creatinine Glucose POC Glucose 119 H 155 H 124 H Lactic Acid Calcium Phosphorus Magnesium Direct Bilirubin AST ALT Alkaline Phosphatase Lactate Dehydrogenase Troponin T C-Reactive Protein Total Protein Albumin Prealbumin Triglycerides Cholesterol LDL Cholesterol Direct HDL Cholesterol Urine pH Urine WBC (Auto) Urine Creatinine Urine Total Protein Fluid Total Protein Vancomycin Trough Rheumatoid Factor Complement C4 Miscellaneous Test Crossmatch 10/19/16 10/19/16 10/19/16 04:00 04:00 05:25 WBC 17.4 H RBC 2.54 L Hgb 7.7 L Hct 23.6 L MCV MCH MCHC RDW 17.3 H Plt Count Lymph % (Auto) [place] % (Auto) Lymph # [place] # Baso # Seg Neutrophils % Seg Neuts % (Manual) Lymphocytes % (Manual) Monocytes % (Manual) Eosinophils % (Manual) Basophils % (Manual) Nucleated RBC % Seg Neutrophils # Seg Neutrophils # Man Lymphocytes # (Manual) Monocytes # (Manual) Eosinophils # (Manual) Basophils # (Manual) PT INR Fibrinogen dRVVT Confirm Interp Factor V Activity POC ABG pH POC ABG pCO2 POC ABG pO2 ABG pO2 ABG HCO3 ABG Base Excess ABG Hemoglobin Oxyhemoglobin Sodium Potassium Chloride Carbon Dioxide BUN 72 H Creatinine 2.1 H Glucose 116 H POC Glucose 119 H Lactic Acid Calcium Phosphorus Magnesium Direct Bilirubin AST ALT Alkaline Phosphatase Lactate Dehydrogenase Troponin T C-Reactive Protein Total Protein Albumin Prealbumin Triglycerides Cholesterol LDL Cholesterol Direct HDL Cholesterol Urine pH Urine WBC (Auto) Urine Creatinine Urine Total Protein Fluid Total Protein Vancomycin Trough Rheumatoid Factor Complement C4 Miscellaneous Test Crossmatch 10/19/16 10/19/16 10/20/16 11:46 23:59 06:00 WBC RBC Hgb Hct MCV MCH MCHC RDW Plt Count Lymph % (Auto) [place] % (Auto) Lymph # [place] # Baso # Seg Neutrophils % Seg Neuts % (Manual) Lymphocytes % (Manual) Monocytes % (Manual) Eosinophils % (Manual) Basophils % (Manual) Nucleated RBC % Seg Neutrophils # Seg Neutrophils # Man Lymphocytes # (Manual) Monocytes # (Manual) Eosinophils # (Manual) Basophils # (Manual) PT INR Fibrinogen dRVVT Confirm Interp Factor V Activity POC ABG pH POC ABG pCO2 POC ABG pO2 ABG pO2 ABG HCO3 ABG Base Excess ABG Hemoglobin Oxyhemoglobin Sodium Potassium Chloride Carbon Dioxide 17 L BUN 94 H Creatinine 2.7 H Glucose POC Glucose 116 H 117 H Lactic Acid Calcium Phosphorus Magnesium Direct Bilirubin AST ALT Alkaline Phosphatase Lactate Dehydrogenase Troponin T C-Reactive Protein Total Protein Albumin Prealbumin Triglycerides Cholesterol LDL Cholesterol Direct HDL Cholesterol Urine pH Urine WBC (Auto) Urine Creatinine Urine Total Protein Fluid Total Protein Vancomycin Trough Rheumatoid Factor Complement C4 Miscellaneous Test Crossmatch 10/20/16 10/20/16 10/20/16 06:00 11:49 16:00 WBC 19.7 H RBC 2.51 L Hgb 7.7 L Hct 23.5 L MCV MCH MCHC RDW 17.5 H Plt Count Lymph % (Auto) [place] % (Auto) Lymph # [place] # Baso # Seg Neutrophils % Seg Neuts % (Manual) Lymphocytes % (Manual) Monocytes % (Manual) Eosinophils % (Manual) Basophils % (Manual) Nucleated RBC % Seg Neutrophils # Seg Neutrophils # Man Lymphocytes # (Manual) Monocytes # (Manual) Eosinophils # (Manual) Basophils # (Manual) PT INR Fibrinogen dRVVT Confirm Interp Factor V Activity POC ABG pH POC ABG pCO2 POC ABG pO2 ABG pO2 ABG HCO3 ABG Base Excess ABG Hemoglobin Oxyhemoglobin Sodium Potassium Chloride Carbon Dioxide BUN Creatinine Glucose POC Glucose 117 H Lactic Acid Calcium Phosphorus Magnesium Direct Bilirubin AST ALT Alkaline Phosphatase Lactate Dehydrogenase Troponin T C-Reactive Protein Total Protein Albumin Prealbumin Triglycerides Cholesterol LDL Cholesterol Direct HDL Cholesterol Urine pH Urine WBC (Auto) Urine Creatinine Urine Total Protein Fluid Total Protein Vancomycin Trough Rheumatoid Factor Complement C4 Miscellaneous Test Flexitest 1 H Crossmatch 10/20/16 10/20/16 10/21/16 18:36 23:39 04:00 WBC RBC Hgb Hct MCV MCH MCHC RDW Plt Count Lymph % (Auto) [place] % (Auto) Lymph # [place] # Baso # Seg Neutrophils % Seg Neuts % (Manual) Lymphocytes % (Manual) Monocytes % (Manual) Eosinophils % (Manual) Basophils % (Manual) Nucleated RBC % Seg Neutrophils # Seg Neutrophils # Man Lymphocytes # (Manual) Monocytes # (Manual) Eosinophils # (Manual) Basophils # (Manual) PT INR Fibrinogen dRVVT Confirm Interp Factor V Activity POC ABG pH POC ABG pCO2 POC ABG pO2 ABG pO2 ABG HCO3 ABG Base Excess ABG Hemoglobin Oxyhemoglobin Sodium Potassium 5.4 H D Chloride Carbon Dioxide 15 L BUN 110 H Creatinine 3.0 H Glucose POC Glucose 127 H 114 H Lactic Acid Calcium Phosphorus Magnesium Direct Bilirubin AST ALT Alkaline Phosphatase Lactate Dehydrogenase Troponin T C-Reactive Protein Total Protein Albumin Prealbumin Triglycerides Cholesterol LDL Cholesterol Direct HDL Cholesterol Urine pH Urine WBC (Auto) Urine Creatinine Urine Total Protein Fluid Total Protein Vancomycin Trough Rheumatoid Factor Complement C4 Miscellaneous Test Crossmatch 10/21/16 10/21/16 10/22/16 05:54 23:46 05:18 WBC RBC Hgb Hct MCV MCH MCHC RDW Plt Count Lymph % (Auto) [place] % (Auto) Lymph # [place] # Baso # Seg Neutrophils % Seg Neuts % (Manual) Lymphocytes % (Manual) Monocytes % (Manual) Eosinophils % (Manual) Basophils % (Manual) Nucleated RBC % Seg Neutrophils # Seg Neutrophils # Man Lymphocytes # (Manual) Monocytes # (Manual) Eosinophils # (Manual) Basophils # (Manual) PT INR Fibrinogen dRVVT Confirm Interp Factor V Activity POC ABG pH POC ABG pCO2 POC ABG pO2 ABG pO2 ABG HCO3 ABG Base Excess ABG Hemoglobin Oxyhemoglobin Sodium Potassium Chloride Carbon Dioxide BUN Creatinine Glucose POC Glucose 119 H 108 H 109 H Lactic Acid Calcium Phosphorus Magnesium Direct Bilirubin AST ALT Alkaline Phosphatase Lactate Dehydrogenase Troponin T C-Reactive Protein Total Protein Albumin Prealbumin Triglycerides Cholesterol LDL Cholesterol Direct HDL Cholesterol Urine pH Urine WBC (Auto) Urine Creatinine Urine Total Protein Fluid Total Protein Vancomycin Trough Rheumatoid Factor Complement C4 Miscellaneous Test Crossmatch 10/22/16 10/22/16 10/22/16 06:40 06:40 06:40 WBC 14.0 H RBC 2.03 L Hgb 7.0 L Hct 20.5 L MCV 98 H MCH 34 H MCHC 35 H RDW 17.8 H Plt Count Lymph % (Auto) [place] % (Auto) 9.9 H Lymph # [place] # 1.4 H Baso # 0.2 H Seg Neutrophils % 72.0 H Seg Neuts % (Manual) Lymphocytes % (Manual) Monocytes % (Manual) Eosinophils % (Manual) Basophils % (Manual) Nucleated RBC % Seg Neutrophils # 10.0 H Seg Neutrophils # Man Lymphocytes # (Manual) Monocytes # (Manual) Eosinophils # (Manual) Basophils # (Manual) PT INR Fibrinogen dRVVT Confirm Interp Factor V Activity POC ABG pH POC ABG pCO2 POC ABG pO2 ABG pO2 ABG HCO3 ABG Base Excess ABG Hemoglobin Oxyhemoglobin Sodium 130 L D Potassium Chloride 92.4 L Carbon Dioxide 20 L BUN 50 H Creatinine 1.6 H Glucose 589 H* POC Glucose Lactic Acid Calcium 7.8 L D Phosphorus Magnesium 1.60 L Direct Bilirubin AST ALT Alkaline Phosphatase Lactate Dehydrogenase Troponin T C-Reactive Protein Total Protein Albumin Prealbumin Triglycerides Cholesterol LDL Cholesterol Direct HDL Cholesterol Urine pH Urine WBC (Auto) Urine Creatinine Urine Total Protein Fluid Total Protein Vancomycin Trough Rheumatoid Factor Complement C4 Miscellaneous Test Crossmatch 10/22/16 10/22/16 10/22/16 11:39 16:44 23:36 WBC RBC Hgb Hct MCV MCH MCHC RDW Plt Count Lymph % (Auto) [place] % (Auto) Lymph # [place] # Baso # Seg Neutrophils % Seg Neuts % (Manual) Lymphocytes % (Manual) Monocytes % (Manual) Eosinophils % (Manual) Basophils % (Manual) Nucleated RBC % Seg Neutrophils # Seg Neutrophils # Man Lymphocytes # (Manual) Monocytes # (Manual) Eosinophils # (Manual) Basophils # (Manual) PT INR Fibrinogen dRVVT Confirm Interp Factor V Activity POC ABG pH POC ABG pCO2 POC ABG pO2 ABG pO2 ABG HCO3 ABG Base Excess ABG Hemoglobin Oxyhemoglobin Sodium Potassium Chloride Carbon Dioxide BUN Creatinine Glucose POC Glucose 142 H 163 H 123 H Lactic Acid Calcium Phosphorus Magnesium Direct Bilirubin AST ALT Alkaline Phosphatase Lactate Dehydrogenase Troponin T C-Reactive Protein Total Protein Albumin Prealbumin Triglycerides Cholesterol LDL Cholesterol Direct HDL Cholesterol Urine pH Urine WBC (Auto) Urine Creatinine Urine Total Protein Fluid Total Protein Vancomycin Trough Rheumatoid Factor Complement C4 Miscellaneous Test Crossmatch 10/23/16 10/23/16 10/23/16 04:58 06:00 12:12 WBC RBC Hgb Hct MCV MCH MCHC RDW Plt Count Lymph % (Auto) [place] % (Auto) Lymph # [place] # Baso # Seg Neutrophils % Seg Neuts % (Manual) Lymphocytes % (Manual) Monocytes % (Manual) Eosinophils % (Manual) Basophils % (Manual) Nucleated RBC % Seg Neutrophils # Seg Neutrophils # Man Lymphocytes # (Manual) Monocytes # (Manual) Eosinophils # (Manual) Basophils # (Manual) PT INR Fibrinogen dRVVT Confirm Interp Factor V Activity POC ABG pH POC ABG pCO2 POC ABG pO2 ABG pO2 ABG HCO3 ABG Base Excess ABG Hemoglobin Oxyhemoglobin Sodium 133 L Potassium 3.5 L Chloride 96.1 L Carbon Dioxide 18 L BUN 76 H Creatinine 2.1 H Glucose POC Glucose 133 H 138 H Lactic Acid Calcium 8.3 L Phosphorus Magnesium Direct Bilirubin AST ALT Alkaline Phosphatase Lactate Dehydrogenase Troponin T C-Reactive Protein Total Protein Albumin Prealbumin Triglycerides Cholesterol LDL Cholesterol Direct HDL Cholesterol Urine pH Urine WBC (Auto) Urine Creatinine Urine Total Protein Fluid Total Protein Vancomycin Trough Rheumatoid Factor Complement C4 Miscellaneous Test Crossmatch 10/23/16 10/23/16 10/24/16 16:53 23:37 04:00 WBC RBC Hgb Hct MCV MCH MCHC RDW Plt Count Lymph % (Auto) [place] % (Auto) Lymph # [place] # Baso # Seg Neutrophils % Seg Neuts % (Manual) Lymphocytes % (Manual) Monocytes % (Manual) Eosinophils % (Manual) Basophils % (Manual) Nucleated RBC % Seg Neutrophils # Seg Neutrophils # Man Lymphocytes # (Manual) Monocytes # (Manual) Eosinophils # (Manual) Basophils # (Manual) PT INR Fibrinogen dRVVT Confirm Interp Factor V Activity POC ABG pH POC ABG pCO2 POC ABG pO2 ABG pO2 ABG HCO3 ABG Base Excess ABG Hemoglobin Oxyhemoglobin Sodium 131 L Potassium Chloride 94.5 L Carbon Dioxide 19 L BUN 97 H Creatinine 2.6 H Glucose 110 H POC Glucose 125 H 123 H Lactic Acid Calcium 8.3 L Phosphorus Magnesium Direct Bilirubin AST ALT Alkaline Phosphatase Lactate Dehydrogenase Troponin T C-Reactive Protein Total Protein Albumin Prealbumin Triglycerides Cholesterol LDL Cholesterol Direct HDL Cholesterol Urine pH Urine WBC (Auto) Urine Creatinine Urine Total Protein Fluid Total Protein Vancomycin Trough Rheumatoid Factor Complement C4 Miscellaneous Test Crossmatch 10/24/16 10/24/16 10/24/16 07:49 11:39 17:52 WBC RBC Hgb 6.0 L Hct 19.7 L* MCV MCH MCHC RDW Plt Count Lymph % (Auto) [place] % (Auto) Lymph # [place] # Baso # Seg Neutrophils % Seg Neuts % (Manual) Lymphocytes % (Manual) Monocytes % (Manual) Eosinophils % (Manual) Basophils % (Manual) Nucleated RBC % Seg Neutrophils # Seg Neutrophils # Man Lymphocytes # (Manual) Monocytes # (Manual) Eosinophils # (Manual) Basophils # (Manual) PT INR Fibrinogen dRVVT Confirm Interp Factor V Activity POC ABG pH POC ABG pCO2 POC ABG pO2 ABG pO2 ABG HCO3 ABG Base Excess ABG Hemoglobin Oxyhemoglobin Sodium Potassium Chloride Carbon Dioxide BUN Creatinine Glucose POC Glucose 106 H 158 H Lactic Acid Calcium Phosphorus Magnesium Direct Bilirubin AST ALT Alkaline Phosphatase Lactate Dehydrogenase Troponin T C-Reactive Protein Total Protein Albumin Prealbumin Triglycerides Cholesterol LDL Cholesterol Direct HDL Cholesterol Urine pH Urine WBC (Auto) Urine Creatinine Urine Total Protein Fluid Total Protein Vancomycin Trough Rheumatoid Factor Complement C4 Miscellaneous Test Crossmatch 10/24/16 10/24/16 10/24/16 20:00 22:27 Unknown WBC RBC Hgb 9.4 L D Hct 27.5 L D MCV MCH MCHC RDW Plt Count Lymph % (Auto) [place] % (Auto) Lymph # [place] # Baso # Seg Neutrophils % Seg Neuts % (Manual) Lymphocytes % (Manual) Monocytes % (Manual) Eosinophils % (Manual) Basophils % (Manual) Nucleated RBC % Seg Neutrophils # Seg Neutrophils # Man Lymphocytes # (Manual) Monocytes # (Manual) Eosinophils # (Manual) Basophils # (Manual) PT INR Fibrinogen dRVVT Confirm Interp Factor V Activity POC ABG pH POC ABG pCO2 POC ABG pO2 ABG pO2 ABG HCO3 ABG Base Excess ABG Hemoglobin Oxyhemoglobin Sodium Potassium Chloride Carbon Dioxide BUN Creatinine Glucose POC Glucose 125 H Lactic Acid Calcium Phosphorus Magnesium Direct Bilirubin AST ALT Alkaline Phosphatase Lactate Dehydrogenase Troponin T C-Reactive Protein Total Protein Albumin Prealbumin Triglycerides Cholesterol LDL Cholesterol Direct HDL Cholesterol Urine pH Urine WBC (Auto) Urine Creatinine Urine Total Protein Fluid Total Protein Vancomycin Trough Rheumatoid Factor Complement C4 Miscellaneous Test Crossmatch See Detail 10/25/16 10/25/16 10/25/16 04:00 04:00 04:00 WBC 14.2 H RBC 2.98 L Hgb 9.0 L Hct 26.2 L MCV MCH MCHC RDW 16.6 H Plt Count Lymph % (Auto) [place] % (Auto) 10.7 H Lymph # [place] # 1.5 H Baso # Seg Neutrophils % 73.6 H Seg Neuts % (Manual) Lymphocytes % (Manual) Monocytes % (Manual) Eosinophils % (Manual) Basophils % (Manual) Nucleated RBC % Seg Neutrophils # 10.5 H Seg Neutrophils # Man Lymphocytes # (Manual) Monocytes # (Manual) Eosinophils # (Manual) Basophils # (Manual) PT INR Fibrinogen dRVVT Confirm Interp Factor V Activity POC ABG pH POC ABG pCO2 POC ABG pO2 ABG pO2 ABG HCO3 ABG Base Excess ABG Hemoglobin Oxyhemoglobin Sodium 132 L Potassium Chloride 94.7 L Carbon Dioxide BUN 51 H Creatinine 1.6 H Glucose 130 H POC Glucose Lactic Acid Calcium 8.3 L Phosphorus 1.60 L D Magnesium Direct Bilirubin AST ALT Alkaline Phosphatase Lactate Dehydrogenase Troponin T C-Reactive Protein Total Protein Albumin Prealbumin Triglycerides Cholesterol LDL Cholesterol Direct HDL Cholesterol Urine pH Urine WBC (Auto) Urine Creatinine Urine Total Protein Fluid Total Protein Vancomycin Trough Rheumatoid Factor Complement C4 Miscellaneous Test Crossmatch 10/25/16 10/25/16 10/25/16 04:32 11:48 17:22 WBC RBC Hgb Hct MCV MCH MCHC RDW Plt Count Lymph % (Auto) [place] % (Auto) Lymph # [place] # Baso # Seg Neutrophils % Seg Neuts % (Manual) Lymphocytes % (Manual) Monocytes % (Manual) Eosinophils % (Manual) Basophils % (Manual) Nucleated RBC % Seg Neutrophils # Seg Neutrophils # Man Lymphocytes # (Manual) Monocytes # (Manual) Eosinophils # (Manual) Basophils # (Manual) PT INR Fibrinogen dRVVT Confirm Interp Factor V Activity POC ABG pH POC ABG pCO2 POC ABG pO2 ABG pO2 ABG HCO3 ABG Base Excess ABG Hemoglobin Oxyhemoglobin Sodium Potassium Chloride Carbon Dioxide BUN Creatinine Glucose POC Glucose 124 H 171 H 120 H Lactic Acid Calcium Phosphorus Magnesium Direct Bilirubin AST ALT Alkaline Phosphatase Lactate Dehydrogenase Troponin T C-Reactive Protein Total Protein Albumin Prealbumin Triglycerides Cholesterol LDL Cholesterol Direct HDL Cholesterol Urine pH Urine WBC (Auto) Urine Creatinine Urine Total Protein Fluid Total Protein Vancomycin Trough Rheumatoid Factor Complement C4 Miscellaneous Test Crossmatch 10/26/16 10/26/16 10/26/16 04:54 07:06 07:06 WBC 16.9 H RBC 3.06 L Hgb 9.1 L Hct 26.9 L MCV MCH MCHC RDW 16.9 H Plt Count Lymph % (Auto) [place] % (Auto) Lymph # [place] # Baso # Seg Neutrophils % Seg Neuts % (Manual) 71.0 H Lymphocytes % (Manual) 5.0 L Monocytes % (Manual) 12.0 H Eosinophils % (Manual) Basophils % (Manual) Nucleated RBC % Seg Neutrophils # Seg Neutrophils # Man 12.0 H Lymphocytes # (Manual) 0.8 L Monocytes # (Manual) 2.0 H Eosinophils # (Manual) Basophils # (Manual) PT INR Fibrinogen dRVVT Confirm Interp Factor V Activity POC ABG pH POC ABG pCO2 POC ABG pO2 ABG pO2 ABG HCO3 ABG Base Excess ABG Hemoglobin Oxyhemoglobin Sodium 135 L Potassium Chloride 97.1 L Carbon Dioxide BUN 73 H Creatinine 2.2 H Glucose 117 H POC Glucose 123 H Lactic Acid Calcium Phosphorus 1.70 L Magnesium Direct Bilirubin AST ALT Alkaline Phosphatase Lactate Dehydrogenase Troponin T C-Reactive Protein Total Protein Albumin Prealbumin Triglycerides Cholesterol LDL Cholesterol Direct HDL Cholesterol Urine pH Urine WBC (Auto) Urine Creatinine Urine Total Protein Fluid Total Protein Vancomycin Trough Rheumatoid Factor Complement C4 Miscellaneous Test Crossmatch 10/26/16 10/26/16 10/26/16 12:12 17:29 23:42 WBC RBC Hgb Hct MCV MCH MCHC RDW Plt Count Lymph % (Auto) [place] % (Auto) Lymph # [place] # Baso # Seg Neutrophils % Seg Neuts % (Manual) Lymphocytes % (Manual) Monocytes % (Manual) Eosinophils % (Manual) Basophils % (Manual) Nucleated RBC % Seg Neutrophils # Seg Neutrophils # Man Lymphocytes # (Manual) Monocytes # (Manual) Eosinophils # (Manual) Basophils # (Manual) PT INR Fibrinogen dRVVT Confirm Interp Factor V Activity POC ABG pH POC ABG pCO2 POC ABG pO2 ABG pO2 ABG HCO3 ABG Base Excess ABG Hemoglobin Oxyhemoglobin Sodium Potassium Chloride Carbon Dioxide BUN Creatinine Glucose POC Glucose 126 H 161 H 118 H Lactic Acid Calcium Phosphorus Magnesium Direct Bilirubin AST ALT Alkaline Phosphatase Lactate Dehydrogenase Troponin T C-Reactive Protein Total Protein Albumin Prealbumin Triglycerides Cholesterol LDL Cholesterol Direct HDL Cholesterol Urine pH Urine WBC (Auto) Urine Creatinine Urine Total Protein Fluid Total Protein Vancomycin Trough Rheumatoid Factor Complement C4 Miscellaneous Test Crossmatch 10/27/16 10/27/16 10/27/16 05:03 06:30 06:30 WBC 13.9 H RBC 3.09 L Hgb 9.2 L Hct 27.5 L MCV MCH MCHC RDW 17.0 H Plt Count Lymph % (Auto) [place] % (Auto) Lymph # [place] # Baso # Seg Neutrophils % Seg Neuts % (Manual) 78.0 H Lymphocytes % (Manual) Monocytes % (Manual) Eosinophils % (Manual) Basophils % (Manual) Nucleated RBC % 2.0 H Seg Neutrophils # Seg Neutrophils # Man 10.8 H Lymphocytes # (Manual) Monocytes # (Manual) 1.0 H Eosinophils # (Manual) Basophils # (Manual) PT INR Fibrinogen dRVVT Confirm Interp Factor V Activity POC ABG pH POC ABG pCO2 POC ABG pO2 ABG pO2 ABG HCO3 ABG Base Excess ABG Hemoglobin Oxyhemoglobin Sodium Potassium Chloride Carbon Dioxide BUN 40 H Creatinine 1.5 H Glucose 135 H POC Glucose 107 H Lactic Acid Calcium 8.3 L Phosphorus 1.30 L D Magnesium Direct Bilirubin AST ALT Alkaline Phosphatase Lactate Dehydrogenase Troponin T C-Reactive Protein Total Protein Albumin Prealbumin Triglycerides Cholesterol LDL Cholesterol Direct HDL Cholesterol Urine pH Urine WBC (Auto) Urine Creatinine Urine Total Protein Fluid Total Protein Vancomycin Trough Rheumatoid Factor Complement C4 Miscellaneous Test Crossmatch 10/27/16 10/27/16 10/27/16 13:27 18:07 23:40 WBC RBC Hgb Hct MCV MCH MCHC RDW Plt Count Lymph % (Auto) [place] % (Auto) Lymph # [place] # Baso # Seg Neutrophils % Seg Neuts % (Manual) Lymphocytes % (Manual) Monocytes % (Manual) Eosinophils % (Manual) Basophils % (Manual) Nucleated RBC % Seg Neutrophils # Seg Neutrophils # Man Lymphocytes # (Manual) Monocytes # (Manual) Eosinophils # (Manual) Basophils # (Manual) PT INR Fibrinogen dRVVT Confirm Interp Factor V Activity POC ABG pH POC ABG pCO2 POC ABG pO2 ABG pO2 ABG HCO3 ABG Base Excess ABG Hemoglobin Oxyhemoglobin Sodium Potassium Chloride Carbon Dioxide BUN Creatinine Glucose POC Glucose 117 H 121 H 118 H Lactic Acid Calcium Phosphorus Magnesium Direct Bilirubin AST ALT Alkaline Phosphatase Lactate Dehydrogenase Troponin T C-Reactive Protein Total Protein Albumin Prealbumin Triglycerides Cholesterol LDL Cholesterol Direct HDL Cholesterol Urine pH Urine WBC (Auto) Urine Creatinine Urine Total Protein Fluid Total Protein Vancomycin Trough Rheumatoid Factor Complement C4 Miscellaneous Test Crossmatch 10/28/16 10/28/16 10/28/16 05:48 06:45 06:45 WBC 14.7 H RBC 3.05 L Hgb 9.0 L Hct 26.9 L MCV MCH MCHC RDW 16.8 H Plt Count Lymph % (Auto) 8.2 L [place] % (Auto) 8.4 H Lymph # [place] # 1.2 H Baso # Seg Neutrophils % 81.9 H Seg Neuts % (Manual) Lymphocytes % (Manual) Monocytes % (Manual) Eosinophils % (Manual) Basophils % (Manual) Nucleated RBC % Seg Neutrophils # 12.1 H Seg Neutrophils # Man Lymphocytes # (Manual) Monocytes # (Manual) Eosinophils # (Manual) Basophils # (Manual) PT INR Fibrinogen dRVVT Confirm Interp Factor V Activity POC ABG pH POC ABG pCO2 POC ABG pO2 ABG pO2 ABG HCO3 ABG Base Excess ABG Hemoglobin Oxyhemoglobin Sodium Potassium Chloride Carbon Dioxide BUN 60 H Creatinine 1.9 H Glucose 120 H POC Glucose 114 H Lactic Acid Calcium Phosphorus Magnesium Direct Bilirubin AST ALT Alkaline Phosphatase Lactate Dehydrogenase Troponin T C-Reactive Protein Total Protein Albumin Prealbumin Triglycerides Cholesterol LDL Cholesterol Direct HDL Cholesterol Urine pH Urine WBC (Auto) Urine Creatinine Urine Total Protein Fluid Total Protein Vancomycin Trough Rheumatoid Factor Complement C4 Miscellaneous Test Crossmatch 10/28/16 10/28/16 10/29/16 17:08 23:50 05:10 WBC RBC Hgb Hct MCV MCH MCHC RDW Plt Count Lymph % (Auto) [place] % (Auto) Lymph # [place] # Baso # Seg Neutrophils % Seg Neuts % (Manual) Lymphocytes % (Manual) Monocytes % (Manual) Eosinophils % (Manual) Basophils % (Manual) Nucleated RBC % Seg Neutrophils # Seg Neutrophils # Man Lymphocytes # (Manual) Monocytes # (Manual) Eosinophils # (Manual) Basophils # (Manual) PT INR Fibrinogen dRVVT Confirm Interp Factor V Activity POC ABG pH POC ABG pCO2 POC ABG pO2 ABG pO2 ABG HCO3 ABG Base Excess ABG Hemoglobin Oxyhemoglobin Sodium Potassium Chloride Carbon Dioxide BUN Creatinine Glucose POC Glucose 109 H 110 H 124 H Lactic Acid Calcium Phosphorus Magnesium Direct Bilirubin AST ALT Alkaline Phosphatase Lactate Dehydrogenase Troponin T C-Reactive Protein Total Protein Albumin Prealbumin Triglycerides Cholesterol LDL Cholesterol Direct HDL Cholesterol Urine pH Urine WBC (Auto) Urine Creatinine Urine Total Protein Fluid Total Protein Vancomycin Trough Rheumatoid Factor Complement C4 Miscellaneous Test Crossmatch 10/29/16 10/29/16 10/29/16 07:45 07:45 12:19 WBC 14.7 H RBC 3.15 L Hgb 9.3 L Hct 28.9 L MCV MCH MCHC RDW 17.0 H Plt Count Lymph % (Auto) 11.9 L [place] % (Auto) 8.6 H Lymph # [place] # 1.3 H Baso # Seg Neutrophils % 78.1 H Seg Neuts % (Manual) Lymphocytes % (Manual) Monocytes % (Manual) Eosinophils % (Manual) Basophils % (Manual) Nucleated RBC % Seg Neutrophils # 11.4 H Seg Neutrophils # Man Lymphocytes # (Manual) Monocytes # (Manual) Eosinophils # (Manual) Basophils # (Manual) PT INR Fibrinogen dRVVT Confirm Interp Factor V Activity POC ABG pH POC ABG pCO2 POC ABG pO2 ABG pO2 ABG HCO3 ABG Base Excess ABG Hemoglobin Oxyhemoglobin Sodium Potassium 5.1 H Chloride Carbon Dioxide 19 L BUN 78 H Creatinine 2.2 H Glucose 116 H POC Glucose 118 H Lactic Acid Calcium Phosphorus Magnesium Direct Bilirubin AST ALT Alkaline Phosphatase Lactate Dehydrogenase Troponin T C-Reactive Protein Total Protein Albumin Prealbumin Triglycerides Cholesterol LDL Cholesterol Direct HDL Cholesterol Urine pH Urine WBC (Auto) Urine Creatinine Urine Total Protein Fluid Total Protein Vancomycin Trough Rheumatoid Factor Complement C4 Miscellaneous Test Crossmatch 10/29/16 10/30/16 10/30/16 17:49 01:52 03:28 WBC RBC Hgb Hct MCV MCH MCHC RDW Plt Count Lymph % (Auto) [place] % (Auto) Lymph # [place] # Baso # Seg Neutrophils % Seg Neuts % (Manual) Lymphocytes % (Manual) Monocytes % (Manual) Eosinophils % (Manual) Basophils % (Manual) Nucleated RBC % Seg Neutrophils # Seg Neutrophils # Man Lymphocytes # (Manual) Monocytes # (Manual) Eosinophils # (Manual) Basophils # (Manual) PT INR Fibrinogen dRVVT Confirm Interp Factor V Activity POC ABG pH POC ABG pCO2 POC ABG pO2 ABG pO2 ABG HCO3 ABG Base Excess ABG Hemoglobin Oxyhemoglobin Sodium Potassium 5.4 H Chloride 97.5 L Carbon Dioxide 19 L BUN 90 H Creatinine 2.5 H Glucose POC Glucose 120 H 129 H Lactic Acid Calcium Phosphorus 5.20 H Magnesium Direct Bilirubin AST ALT Alkaline Phosphatase Lactate Dehydrogenase Troponin T C-Reactive Protein Total Protein Albumin Prealbumin Triglycerides Cholesterol LDL Cholesterol Direct HDL Cholesterol Urine pH Urine WBC (Auto) Urine Creatinine Urine Total Protein Fluid Total Protein Vancomycin Trough Rheumatoid Factor Complement C4 Miscellaneous Test Crossmatch 10/30/16 10/30/16 10/30/16 03:28 08:19 08:19 WBC 11.6 H 15.9 H RBC 2.75 L 2.82 L Hgb 7.9 L 8.3 L Hct 24.2 L 25.2 L MCV MCH MCHC RDW 16.7 H 17.2 H Plt Count Lymph % (Auto) [place] % (Auto) 9.8 H Lymph # [place] # 1.1 H Baso # Seg Neutrophils % 74.2 H Seg Neuts % (Manual) Lymphocytes % (Manual) Monocytes % (Manual) Eosinophils % (Manual) Basophils % (Manual) Nucleated RBC % Seg Neutrophils # 8.6 H Seg Neutrophils # Man Lymphocytes # (Manual) Monocytes # (Manual) Eosinophils # (Manual) Basophils # (Manual) PT INR Fibrinogen dRVVT Confirm Interp Factor V Activity POC ABG pH POC ABG pCO2 POC ABG pO2 ABG pO2 ABG HCO3 ABG Base Excess ABG Hemoglobin Oxyhemoglobin Sodium Potassium 5.3 H Chloride 97.4 L Carbon Dioxide 19 L BUN 93 H Creatinine 2.6 H Glucose POC Glucose Lactic Acid Calcium Phosphorus Magnesium Direct Bilirubin AST ALT Alkaline Phosphatase Lactate Dehydrogenase Troponin T C-Reactive Protein Total Protein Albumin Prealbumin Triglycerides Cholesterol LDL Cholesterol Direct HDL Cholesterol Urine pH Urine WBC (Auto) Urine Creatinine Urine Total Protein Fluid Total Protein Vancomycin Trough Rheumatoid Factor Complement C4 Miscellaneous Test Crossmatch 10/30/16 10/30/16 10/31/16 17:11 23:56 00:40 WBC RBC Hgb Hct MCV MCH MCHC RDW Plt Count Lymph % (Auto) [place] % (Auto) Lymph # [place] # Baso # Seg Neutrophils % Seg Neuts % (Manual) Lymphocytes % (Manual) Monocytes % (Manual) Eosinophils % (Manual) Basophils % (Manual) Nucleated RBC % Seg Neutrophils # Seg Neutrophils # Man Lymphocytes # (Manual) Monocytes # (Manual) Eosinophils # (Manual) Basophils # (Manual) PT INR Fibrinogen dRVVT Confirm Interp Factor V Activity POC ABG pH POC ABG pCO2 POC ABG pO2 ABG pO2 ABG HCO3 ABG Base Excess ABG Hemoglobin Oxyhemoglobin Sodium Potassium Chloride Carbon Dioxide BUN Creatinine Glucose POC Glucose 106 H 117 H 120 H Lactic Acid Calcium Phosphorus Magnesium Direct Bilirubin AST ALT Alkaline Phosphatase Lactate Dehydrogenase Troponin T C-Reactive Protein Total Protein Albumin Prealbumin Triglycerides Cholesterol LDL Cholesterol Direct HDL Cholesterol Urine pH Urine WBC (Auto) Urine Creatinine Urine Total Protein Fluid Total Protein Vancomycin Trough Rheumatoid Factor Complement C4 Miscellaneous Test Crossmatch 10/31/16 10/31/16 10/31/16 05:43 07:15 07:15 WBC 12.1 H RBC 2.63 L Hgb 7.7 L Hct 23.3 L MCV MCH MCHC RDW 16.7 H Plt Count Lymph % (Auto) 11.7 L [place] % (Auto) 7.7 H Lymph # [place] # 0.9 H Baso # Seg Neutrophils % 78.0 H Seg Neuts % (Manual) Lymphocytes % (Manual) Monocytes % (Manual) Eosinophils % (Manual) Basophils % (Manual) Nucleated RBC % Seg Neutrophils # 9.4 H Seg Neutrophils # Man Lymphocytes # (Manual) Monocytes # (Manual) Eosinophils # (Manual) Basophils # (Manual) PT INR Fibrinogen dRVVT Confirm Interp Factor V Activity POC ABG pH POC ABG pCO2 POC ABG pO2 ABG pO2 ABG HCO3 ABG Base Excess ABG Hemoglobin Oxyhemoglobin Sodium Potassium Chloride 96.4 L Carbon Dioxide 21 L BUN 99 H Creatinine 2.6 H Glucose 144 H POC Glucose 125 H Lactic Acid Calcium Phosphorus 4.80 H Magnesium Direct Bilirubin AST ALT Alkaline Phosphatase Lactate Dehydrogenase Troponin T C-Reactive Protein Total Protein Albumin Prealbumin Triglycerides Cholesterol LDL Cholesterol Direct HDL Cholesterol Urine pH Urine WBC (Auto) Urine Creatinine Urine Total Protein Fluid Total Protein Vancomycin Trough Rheumatoid Factor Complement C4 Miscellaneous Test Crossmatch 10/31/16 10/31/16 11/01/16 11:46 18:34 00:20 WBC RBC Hgb Hct MCV MCH MCHC RDW Plt Count Lymph % (Auto) [place] % (Auto) Lymph # [place] # Baso # Seg Neutrophils % Seg Neuts % (Manual) Lymphocytes % (Manual) Monocytes % (Manual) Eosinophils % (Manual) Basophils % (Manual) Nucleated RBC % Seg Neutrophils # Seg Neutrophils # Man Lymphocytes # (Manual) Monocytes # (Manual) Eosinophils # (Manual) Basophils # (Manual) PT INR Fibrinogen dRVVT Confirm Interp Factor V Activity POC ABG pH POC ABG pCO2 POC ABG pO2 ABG pO2 ABG HCO3 ABG Base Excess ABG Hemoglobin Oxyhemoglobin Sodium Potassium Chloride Carbon Dioxide BUN Creatinine Glucose POC Glucose 159 H 140 H 132 H Lactic Acid Calcium Phosphorus Magnesium Direct Bilirubin AST ALT Alkaline Phosphatase Lactate Dehydrogenase Troponin T C-Reactive Protein Total Protein Albumin Prealbumin Triglycerides Cholesterol LDL Cholesterol Direct HDL Cholesterol Urine pH Urine WBC (Auto) Urine Creatinine Urine Total Protein Fluid Total Protein Vancomycin Trough Rheumatoid Factor Complement C4 Miscellaneous Test Crossmatch 11/01/16 11/01/16 11/01/16 04:55 04:55 06:11 WBC 11.2 H RBC 2.68 L Hgb 7.5 L Hct 23.7 L MCV MCH MCHC RDW 16.1 H Plt Count Lymph % (Auto) [place] % (Auto) 9.8 H Lymph # [place] # 1.1 H Baso # Seg Neutrophils % 70.8 H Seg Neuts % (Manual) Lymphocytes % (Manual) Monocytes % (Manual) Eosinophils % (Manual) Basophils % (Manual) Nucleated RBC % Seg Neutrophils # 7.9 H Seg Neutrophils # Man Lymphocytes # (Manual) Monocytes # (Manual) Eosinophils # (Manual) Basophils # (Manual) PT INR Fibrinogen dRVVT Confirm Interp Factor V Activity POC ABG pH POC ABG pCO2 POC ABG pO2 ABG pO2 ABG HCO3 ABG Base Excess ABG Hemoglobin Oxyhemoglobin Sodium Potassium 3.3 L D Chloride Carbon Dioxide BUN 61 H Creatinine 1.9 H Glucose 114 H POC Glucose 115 H Lactic Acid Calcium Phosphorus 1.80 L D Magnesium Direct Bilirubin AST ALT Alkaline Phosphatase Lactate Dehydrogenase Troponin T C-Reactive Protein Total Protein Albumin Prealbumin Triglycerides Cholesterol LDL Cholesterol Direct HDL Cholesterol Urine pH Urine WBC (Auto) Urine Creatinine Urine Total Protein Fluid Total Protein Vancomycin Trough Rheumatoid Factor Complement C4 Miscellaneous Test Crossmatch 11/01/16 11/01/16 11/01/16 12:29 18:23 23:58 WBC RBC Hgb Hct MCV MCH MCHC RDW Plt Count Lymph % (Auto) [place] % (Auto) Lymph # [place] # Baso # Seg Neutrophils % Seg Neuts % (Manual) Lymphocytes % (Manual) Monocytes % (Manual) Eosinophils % (Manual) Basophils % (Manual) Nucleated RBC % Seg Neutrophils # Seg Neutrophils # Man Lymphocytes # (Manual) Monocytes # (Manual) Eosinophils # (Manual) Basophils # (Manual) PT INR Fibrinogen dRVVT Confirm Interp Factor V Activity POC ABG pH POC ABG pCO2 POC ABG pO2 ABG pO2 ABG HCO3 ABG Base Excess ABG Hemoglobin Oxyhemoglobin Sodium Potassium Chloride Carbon Dioxide BUN Creatinine Glucose POC Glucose 142 H 143 H 128 H Lactic Acid Calcium Phosphorus Magnesium Direct Bilirubin AST ALT Alkaline Phosphatase Lactate Dehydrogenase Troponin T C-Reactive Protein Total Protein Albumin Prealbumin Triglycerides Cholesterol LDL Cholesterol Direct HDL Cholesterol Urine pH Urine WBC (Auto) Urine Creatinine Urine Total Protein Fluid Total Protein Vancomycin Trough Rheumatoid Factor Complement C4 Miscellaneous Test Crossmatch 11/02/16 11/02/16 11/02/16 04:16 05:29 11:58 WBC RBC Hgb Hct MCV MCH MCHC RDW Plt Count Lymph % (Auto) [place] % (Auto) Lymph # [place] # Baso # Seg Neutrophils % Seg Neuts % (Manual) Lymphocytes % (Manual) Monocytes % (Manual) Eosinophils % (Manual) Basophils % (Manual) Nucleated RBC % Seg Neutrophils # Seg Neutrophils # Man Lymphocytes # (Manual) Monocytes # (Manual) Eosinophils # (Manual) Basophils # (Manual) PT INR Fibrinogen dRVVT Confirm Interp Factor V Activity POC ABG pH POC ABG pCO2 POC ABG pO2 ABG pO2 ABG HCO3 ABG Base Excess ABG Hemoglobin Oxyhemoglobin Sodium Potassium 3.1 L Chloride Carbon Dioxide BUN 73 H Creatinine 2.3 H Glucose 112 H POC Glucose 135 H 149 H Lactic Acid Calcium Phosphorus Magnesium Direct Bilirubin AST ALT Alkaline Phosphatase Lactate Dehydrogenase Troponin T C-Reactive Protein Total Protein Albumin Prealbumin Triglycerides Cholesterol LDL Cholesterol Direct HDL Cholesterol Urine pH Urine WBC (Auto) Urine Creatinine Urine Total Protein Fluid Total Protein Vancomycin Trough Rheumatoid Factor Complement C4 Miscellaneous Test Crossmatch 11/02/16 11/02/16 11/03/16 17:42 22:54 06:00 WBC RBC Hgb Hct MCV MCH MCHC RDW Plt Count Lymph % (Auto) [place] % (Auto) Lymph # [place] # Baso # Seg Neutrophils % Seg Neuts % (Manual) Lymphocytes % (Manual) Monocytes % (Manual) Eosinophils % (Manual) Basophils % (Manual) Nucleated RBC % Seg Neutrophils # Seg Neutrophils # Man Lymphocytes # (Manual) Monocytes # (Manual) Eosinophils # (Manual) Basophils # (Manual) PT INR Fibrinogen dRVVT Confirm Interp Factor V Activity POC ABG pH POC ABG pCO2 POC ABG pO2 ABG pO2 ABG HCO3 ABG Base Excess ABG Hemoglobin Oxyhemoglobin Sodium Potassium Chloride 96.7 L Carbon Dioxide BUN 41 H Creatinine 1.5 H Glucose 145 H POC Glucose 182 H 115 H Lactic Acid Calcium Phosphorus 1.60 L D Magnesium 1.50 L Direct Bilirubin AST ALT Alkaline Phosphatase Lactate Dehydrogenase Troponin T C-Reactive Protein Total Protein Albumin Prealbumin Triglycerides Cholesterol LDL Cholesterol Direct HDL Cholesterol Urine pH Urine WBC (Auto) Urine Creatinine Urine Total Protein Fluid Total Protein Vancomycin Trough Rheumatoid Factor Complement C4 Miscellaneous Test Crossmatch 11/03/16 11/03/16 11/03/16 11:53 17:45 23:37 WBC RBC Hgb Hct MCV MCH MCHC RDW Plt Count Lymph % (Auto) [place] % (Auto) Lymph # [place] # Baso # Seg Neutrophils % Seg Neuts % (Manual) Lymphocytes % (Manual) Monocytes % (Manual) Eosinophils % (Manual) Basophils % (Manual) Nucleated RBC % Seg Neutrophils # Seg Neutrophils # Man Lymphocytes # (Manual) Monocytes # (Manual) Eosinophils # (Manual) Basophils # (Manual) PT INR Fibrinogen dRVVT Confirm Interp Factor V Activity POC ABG pH POC ABG pCO2 POC ABG pO2 ABG pO2 ABG HCO3 ABG Base Excess ABG Hemoglobin Oxyhemoglobin Sodium Potassium Chloride Carbon Dioxide BUN Creatinine Glucose POC Glucose 131 H 134 H 113 H Lactic Acid Calcium Phosphorus Magnesium Direct Bilirubin AST ALT Alkaline Phosphatase Lactate Dehydrogenase Troponin T C-Reactive Protein Total Protein Albumin Prealbumin Triglycerides Cholesterol LDL Cholesterol Direct HDL Cholesterol Urine pH Urine WBC (Auto) Urine Creatinine Urine Total Protein Fluid Total Protein Vancomycin Trough Rheumatoid Factor Complement C4 Miscellaneous Test Crossmatch 11/04/16 11/04/16 11/04/16 05:41 06:00 12:10 WBC RBC Hgb Hct MCV MCH MCHC RDW Plt Count Lymph % (Auto) [place] % (Auto) Lymph # [place] # Baso # Seg Neutrophils % Seg Neuts % (Manual) Lymphocytes % (Manual) Monocytes % (Manual) Eosinophils % (Manual) Basophils % (Manual) Nucleated RBC % Seg Neutrophils # Seg Neutrophils # Man Lymphocytes # (Manual) Monocytes # (Manual) Eosinophils # (Manual) Basophils # (Manual) PT INR Fibrinogen dRVVT Confirm Interp Factor V Activity POC ABG pH POC ABG pCO2 POC ABG pO2 ABG pO2 ABG HCO3 ABG Base Excess ABG Hemoglobin Oxyhemoglobin Sodium Potassium Chloride 96.7 L Carbon Dioxide BUN 52 H Creatinine 1.9 H Glucose 126 H POC Glucose 137 H 191 H Lactic Acid Calcium Phosphorus Magnesium Direct Bilirubin AST ALT Alkaline Phosphatase Lactate Dehydrogenase Troponin T C-Reactive Protein Total Protein Albumin Prealbumin Triglycerides Cholesterol LDL Cholesterol Direct HDL Cholesterol Urine pH Urine WBC (Auto) Urine Creatinine Urine Total Protein Fluid Total Protein Vancomycin Trough Rheumatoid Factor Complement C4 Miscellaneous Test Crossmatch 11/04/16 11/05/16 11/05/16 22:57 03:10 05:10 WBC RBC Hgb Hct MCV MCH MCHC RDW Plt Count Lymph % (Auto) [place] % (Auto) Lymph # [place] # Baso # Seg Neutrophils % Seg Neuts % (Manual) Lymphocytes % (Manual) Monocytes % (Manual) Eosinophils % (Manual) Basophils % (Manual) Nucleated RBC % Seg Neutrophils # Seg Neutrophils # Man Lymphocytes # (Manual) Monocytes # (Manual) Eosinophils # (Manual) Basophils # (Manual) PT INR Fibrinogen dRVVT Confirm Interp Factor V Activity POC ABG pH POC ABG pCO2 POC ABG pO2 ABG pO2 ABG HCO3 ABG Base Excess ABG Hemoglobin Oxyhemoglobin Sodium 136 L Potassium Chloride 97.2 L Carbon Dioxide BUN 32 H Creatinine 1.3 H Glucose 123 H POC Glucose 125 H 108 H Lactic Acid Calcium 7.8 L Phosphorus Magnesium Direct Bilirubin AST ALT Alkaline Phosphatase Lactate Dehydrogenase Troponin T C-Reactive Protein Total Protein Albumin Prealbumin Triglycerides Cholesterol LDL Cholesterol Direct HDL Cholesterol Urine pH Urine WBC (Auto) Urine Creatinine Urine Total Protein Fluid Total Protein Vancomycin Trough Rheumatoid Factor Complement C4 Miscellaneous Test Crossmatch 11/05/16 11/05/16 11/05/16 12:23 13:09 13:25 WBC RBC Hgb Hct MCV MCH MCHC RDW Plt Count Lymph % (Auto) [place] % (Auto) Lymph # [place] # Baso # Seg Neutrophils % Seg Neuts % (Manual) Lymphocytes % (Manual) Monocytes % (Manual) Eosinophils % (Manual) Basophils % (Manual) Nucleated RBC % Seg Neutrophils # Seg Neutrophils # Man Lymphocytes # (Manual) Monocytes # (Manual) Eosinophils # (Manual) Basophils # (Manual) PT INR Fibrinogen dRVVT Confirm Interp Factor V Activity POC ABG pH POC ABG pCO2 POC ABG pO2 ABG pO2 ABG HCO3 ABG Base Excess ABG Hemoglobin Oxyhemoglobin Sodium Potassium Chloride Carbon Dioxide BUN Creatinine Glucose POC Glucose 124 H Lactic Acid Calcium Phosphorus Magnesium Direct Bilirubin AST ALT Alkaline Phosphatase Lactate Dehydrogenase Troponin T C-Reactive Protein 11.40 H Total Protein Albumin Prealbumin Triglycerides Cholesterol LDL Cholesterol Direct HDL Cholesterol Urine pH 9.0 H Urine WBC (Auto) Urine Creatinine Urine Total Protein Fluid Total Protein Vancomycin Trough Rheumatoid Factor Complement C4 Miscellaneous Test Crossmatch 11/05/16 11/05/16 11/05/16 13:25 17:54 23:42 WBC RBC Hgb Hct MCV MCH MCHC RDW Plt Count Lymph % (Auto) [place] % (Auto) Lymph # [place] # Baso # Seg Neutrophils % Seg Neuts % (Manual) Lymphocytes % (Manual) Monocytes % (Manual) Eosinophils % (Manual) Basophils % (Manual) Nucleated RBC % Seg Neutrophils # Seg Neutrophils # Man Lymphocytes # (Manual) Monocytes # (Manual) Eosinophils # (Manual) Basophils # (Manual) PT INR Fibrinogen dRVVT Confirm Interp Factor V Activity POC ABG pH POC ABG pCO2 POC ABG pO2 ABG pO2 ABG HCO3 ABG Base Excess ABG Hemoglobin Oxyhemoglobin Sodium Potassium Chloride Carbon Dioxide BUN Creatinine Glucose POC Glucose 114 H 134 H Lactic Acid Calcium Phosphorus Magnesium Direct Bilirubin AST ALT Alkaline Phosphatase Lactate Dehydrogenase Troponin T C-Reactive Protein Total Protein Albumin Prealbumin Triglycerides Cholesterol LDL Cholesterol Direct HDL Cholesterol Urine pH Urine WBC (Auto) Urine Creatinine Urine Total Protein Fluid Total Protein Vancomycin Trough Rheumatoid Factor Complement C4 Miscellaneous Test Flexitest 1 H Crossmatch 11/06/16 11/06/16 11/06/16 04:56 06:25 06:25 WBC RBC 2.50 L Hgb 7.3 L Hct 22.5 L MCV MCH MCHC RDW 16.9 H Plt Count Lymph % (Auto) [place] % (Auto) 10.5 H Lymph # [place] # 1.1 H Baso # Seg Neutrophils % Seg Neuts % (Manual) Lymphocytes % (Manual) Monocytes % (Manual) Eosinophils % (Manual) Basophils % (Manual) Nucleated RBC % Seg Neutrophils # Seg Neutrophils # Man Lymphocytes # (Manual) Monocytes # (Manual) Eosinophils # (Manual) Basophils # (Manual) PT INR Fibrinogen dRVVT Confirm Interp Factor V Activity POC ABG pH POC ABG pCO2 POC ABG pO2 ABG pO2 ABG HCO3 ABG Base Excess ABG Hemoglobin Oxyhemoglobin Sodium Potassium 5.1 H Chloride 95.9 L Carbon Dioxide BUN 52 H Creatinine 1.8 H Glucose 117 H POC Glucose 120 H Lactic Acid Calcium Phosphorus Magnesium Direct Bilirubin AST 103 H ALT 77 H Alkaline Phosphatase 285 H Lactate Dehydrogenase Troponin T C-Reactive Protein Total Protein 6.2 L Albumin 1.8 L Prealbumin 0.180 L Triglycerides Cholesterol LDL Cholesterol Direct HDL Cholesterol Urine pH Urine WBC (Auto) Urine Creatinine Urine Total Protein Fluid Total Protein Vancomycin Trough Rheumatoid Factor Complement C4 Miscellaneous Test Crossmatch 11/06/16 11/06/16 11/06/16 11:56 17:14 23:52 WBC RBC Hgb Hct MCV MCH MCHC RDW Plt Count Lymph % (Auto) [place] % (Auto) Lymph # [place] # Baso # Seg Neutrophils % Seg Neuts % (Manual) Lymphocytes % (Manual) Monocytes % (Manual) Eosinophils % (Manual) Basophils % (Manual) Nucleated RBC % Seg Neutrophils # Seg Neutrophils # Man Lymphocytes # (Manual) Monocytes # (Manual) Eosinophils # (Manual) Basophils # (Manual) PT INR Fibrinogen dRVVT Confirm Interp Factor V Activity POC ABG pH POC ABG pCO2 POC ABG pO2 ABG pO2 ABG HCO3 ABG Base Excess ABG Hemoglobin Oxyhemoglobin Sodium Potassium Chloride Carbon Dioxide BUN Creatinine Glucose POC Glucose 141 H 125 H 130 H Lactic Acid Calcium Phosphorus Magnesium Direct Bilirubin AST ALT Alkaline Phosphatase Lactate Dehydrogenase Troponin T C-Reactive Protein Total Protein Albumin Prealbumin Triglycerides Cholesterol LDL Cholesterol Direct HDL Cholesterol Urine pH Urine WBC (Auto) Urine Creatinine Urine Total Protein Fluid Total Protein Vancomycin Trough Rheumatoid Factor Complement C4 Miscellaneous Test Crossmatch 11/07/16 11/07/16 11/07/16 06:30 06:30 09:37 WBC RBC 2.18 L Hgb 6.3 L Hct 19.7 L* MCV MCH MCHC RDW 16.8 H Plt Count Lymph % (Auto) [place] % (Auto) 10.0 H Lymph # [place] # 1.0 H Baso # Seg Neutrophils % Seg Neuts % (Manual) Lymphocytes % (Manual) Monocytes % (Manual) Eosinophils % (Manual) Basophils % (Manual) Nucleated RBC % Seg Neutrophils # Seg Neutrophils # Man Lymphocytes # (Manual) Monocytes # (Manual) Eosinophils # (Manual) Basophils # (Manual) PT INR Fibrinogen dRVVT Confirm Interp Factor V Activity POC ABG pH POC ABG pCO2 POC ABG pO2 ABG pO2 ABG HCO3 ABG Base Excess ABG Hemoglobin Oxyhemoglobin Sodium 135 L Potassium Chloride 95.6 L Carbon Dioxide BUN 70 H Creatinine 2.0 H Glucose 126 H POC Glucose Lactic Acid Calcium Phosphorus Magnesium Direct Bilirubin AST ALT Alkaline Phosphatase Lactate Dehydrogenase Troponin T C-Reactive Protein Total Protein Albumin Prealbumin Triglycerides Cholesterol LDL Cholesterol Direct HDL Cholesterol Urine pH Urine WBC (Auto) Urine Creatinine Urine Total Protein Fluid Total Protein Vancomycin Trough Rheumatoid Factor Complement C4 Miscellaneous Test Crossmatch See Detail 11/07/16 11/07/16 11/07/16 12:52 18:51 21:26 WBC RBC Hgb Hct MCV MCH MCHC RDW Plt Count Lymph % (Auto) [place] % (Auto) Lymph # [place] # Baso # Seg Neutrophils % Seg Neuts % (Manual) Lymphocytes % (Manual) Monocytes % (Manual) Eosinophils % (Manual) Basophils % (Manual) Nucleated RBC % Seg Neutrophils # Seg Neutrophils # Man Lymphocytes # (Manual) Monocytes # (Manual) Eosinophils # (Manual) Basophils # (Manual) PT INR Fibrinogen dRVVT Confirm Interp Factor V Activity POC ABG pH 7.523 H POC ABG pCO2 34.6 L POC ABG pO2 53 L ABG pO2 ABG HCO3 ABG Base Excess ABG Hemoglobin Oxyhemoglobin Sodium Potassium Chloride Carbon Dioxide BUN Creatinine Glucose POC Glucose 142 H 155 H Lactic Acid Calcium Phosphorus Magnesium Direct Bilirubin AST ALT Alkaline Phosphatase Lactate Dehydrogenase Troponin T C-Reactive Protein Total Protein Albumin Prealbumin Triglycerides Cholesterol LDL Cholesterol Direct HDL Cholesterol Urine pH Urine WBC (Auto) Urine Creatinine Urine Total Protein Fluid Total Protein Vancomycin Trough Rheumatoid Factor Complement C4 Miscellaneous Test Crossmatch 11/07/16 11/08/16 11/08/16 21:34 13:03 23:37 WBC RBC 2.63 L Hgb 7.7 L Hct 22.7 L MCV MCH MCHC RDW 17.0 H Plt Count Lymph % (Auto) [place] % (Auto) Lymph # [place] # Baso # Seg Neutrophils % Seg Neuts % (Manual) Lymphocytes % (Manual) Monocytes % (Manual) Eosinophils % (Manual) Basophils % (Manual) Nucleated RBC % Seg Neutrophils # Seg Neutrophils # Man Lymphocytes # (Manual) Monocytes # (Manual) Eosinophils # (Manual) Basophils # (Manual) PT INR Fibrinogen dRVVT Confirm Interp Factor V Activity POC ABG pH 7.478 H POC ABG pCO2 34.0 L POC ABG pO2 50 L ABG pO2 ABG HCO3 ABG Base Excess ABG Hemoglobin Oxyhemoglobin Sodium Potassium Chloride Carbon Dioxide BUN Creatinine Glucose POC Glucose 113 H Lactic Acid Calcium Phosphorus Magnesium Direct Bilirubin AST ALT Alkaline Phosphatase Lactate Dehydrogenase Troponin T C-Reactive Protein Total Protein Albumin Prealbumin Triglycerides Cholesterol LDL Cholesterol Direct HDL Cholesterol Urine pH Urine WBC (Auto) Urine Creatinine Urine Total Protein Fluid Total Protein Vancomycin Trough Rheumatoid Factor Complement C4 Miscellaneous Test Crossmatch 11/09/16 11/09/16 11/09/16 04:35 10:15 18:21 WBC RBC 2.68 L Hgb 7.8 L Hct 23.3 L MCV MCH MCHC RDW 17.0 H Plt Count Lymph % (Auto) [place] % (Auto) 12.1 H Lymph # [place] # 1.1 H Baso # Seg Neutrophils % Seg Neuts % (Manual) Lymphocytes % (Manual) Monocytes % (Manual) Eosinophils % (Manual) Basophils % (Manual) Nucleated RBC % Seg Neutrophils # Seg Neutrophils # Man Lymphocytes # (Manual) Monocytes # (Manual) Eosinophils # (Manual) Basophils # (Manual) PT INR Fibrinogen dRVVT Confirm Interp Factor V Activity POC ABG pH POC ABG pCO2 POC ABG pO2 ABG pO2 ABG HCO3 ABG Base Excess ABG Hemoglobin Oxyhemoglobin Sodium Potassium Chloride Carbon Dioxide BUN 51 H Creatinine 1.8 H Glucose POC Glucose 60 L Lactic Acid Calcium 8.3 L Phosphorus Magnesium Direct Bilirubin AST ALT Alkaline Phosphatase Lactate Dehydrogenase Troponin T C-Reactive Protein Total Protein Albumin Prealbumin Triglycerides Cholesterol LDL Cholesterol Direct HDL Cholesterol Urine pH Urine WBC (Auto) Urine Creatinine Urine Total Protein Fluid Total Protein Vancomycin Trough Rheumatoid Factor Complement C4 Miscellaneous Test Crossmatch 11/09/16 11/10/16 11/10/16 18:55 07:00 11:51 WBC RBC Hgb Hct MCV MCH MCHC RDW Plt Count Lymph % (Auto) [place] % (Auto) Lymph # [place] # Baso # Seg Neutrophils % Seg Neuts % (Manual) Lymphocytes % (Manual) Monocytes % (Manual) Eosinophils % (Manual) Basophils % (Manual) Nucleated RBC % Seg Neutrophils # Seg Neutrophils # Man Lymphocytes # (Manual) Monocytes # (Manual) Eosinophils # (Manual) Basophils # (Manual) PT INR Fibrinogen dRVVT Confirm Interp Factor V Activity POC ABG pH POC ABG pCO2 POC ABG pO2 ABG pO2 ABG HCO3 ABG Base Excess ABG Hemoglobin Oxyhemoglobin Sodium Potassium 3.0 L D Chloride 97.4 L Carbon Dioxide BUN 28 H Creatinine 1.3 H Glucose POC Glucose 68 L 120 H Lactic Acid Calcium 7.8 L Phosphorus Magnesium Direct Bilirubin AST ALT Alkaline Phosphatase Lactate Dehydrogenase Troponin T C-Reactive Protein Total Protein Albumin Prealbumin Triglycerides Cholesterol LDL Cholesterol Direct HDL Cholesterol Urine pH Urine WBC (Auto) Urine Creatinine Urine Total Protein Fluid Total Protein Vancomycin Trough Rheumatoid Factor Complement C4 Miscellaneous Test Crossmatch 11/10/16 11/11/16 11/11/16 14:20 06:59 06:59 WBC RBC 2.81 L Hgb 8.1 L Hct 24.4 L MCV MCH MCHC RDW 16.4 H Plt Count Lymph % (Auto) [place] % (Auto) 10.8 H Lymph # [place] # 1.0 H Baso # Seg Neutrophils % Seg Neuts % (Manual) Lymphocytes % (Manual) Monocytes % (Manual) Eosinophils % (Manual) Basophils % (Manual) Nucleated RBC % Seg Neutrophils # Seg Neutrophils # Man Lymphocytes # (Manual) Monocytes # (Manual) Eosinophils # (Manual) Basophils # (Manual) PT INR Fibrinogen dRVVT Confirm Interp Factor V Activity POC ABG pH POC ABG pCO2 POC ABG pO2 ABG pO2 ABG HCO3 ABG Base Excess ABG Hemoglobin Oxyhemoglobin Sodium Potassium Chloride Carbon Dioxide BUN Creatinine Glucose POC Glucose Lactic Acid Calcium Phosphorus Magnesium Direct Bilirubin AST ALT Alkaline Phosphatase Lactate Dehydrogenase 196 H Troponin T C-Reactive Protein Total Protein 6.1 L Albumin Prealbumin Triglycerides Cholesterol LDL Cholesterol Direct HDL Cholesterol Urine pH Urine WBC (Auto) Urine Creatinine Urine Total Protein Fluid Total Protein < 3.0 L Vancomycin Trough Rheumatoid Factor Complement C4 Miscellaneous Test Crossmatch 11/11/16 11/11/16 11/12/16 06:59 09:50 04:00 WBC RBC Hgb Hct MCV MCH MCHC RDW Plt Count Lymph % (Auto) [place] % (Auto) Lymph # [place] # Baso # Seg Neutrophils % Seg Neuts % (Manual) Lymphocytes % (Manual) Monocytes % (Manual) Eosinophils % (Manual) Basophils % (Manual) Nucleated RBC % Seg Neutrophils # Seg Neutrophils # Man Lymphocytes # (Manual) Monocytes # (Manual) Eosinophils # (Manual) Basophils # (Manual) PT INR 1.18 H Fibrinogen dRVVT Confirm Interp Factor V Activity POC ABG pH POC ABG pCO2 POC ABG pO2 ABG pO2 ABG HCO3 ABG Base Excess ABG Hemoglobin Oxyhemoglobin Sodium 136 L 133 L Potassium Chloride 96.1 L 94.8 L Carbon Dioxide 21 L BUN 37 H 42 H Creatinine 1.8 H 2.0 H Glucose POC Glucose Lactic Acid Calcium Phosphorus Magnesium Direct Bilirubin AST ALT Alkaline Phosphatase Lactate Dehydrogenase Troponin T C-Reactive Protein Total Protein Albumin Prealbumin Triglycerides Cholesterol LDL Cholesterol Direct HDL Cholesterol Urine pH Urine WBC (Auto) Urine Creatinine Urine Total Protein Fluid Total Protein Vancomycin Trough Rheumatoid Factor Complement C4 Miscellaneous Test Crossmatch 11/12/16 11/12/16 11/13/16 04:00 23:55 05:53 WBC RBC Hgb 8.9 L Hct 27.2 L MCV MCH MCHC RDW Plt Count Lymph % (Auto) [place] % (Auto) Lymph # [place] # Baso # Seg Neutrophils % Seg Neuts % (Manual) Lymphocytes % (Manual) Monocytes % (Manual) Eosinophils % (Manual) Basophils % (Manual) Nucleated RBC % Seg Neutrophils # Seg Neutrophils # Man Lymphocytes # (Manual) Monocytes # (Manual) Eosinophils # (Manual) Basophils # (Manual) PT INR Fibrinogen dRVVT Confirm Interp Factor V Activity POC ABG pH POC ABG pCO2 POC ABG pO2 ABG pO2 ABG HCO3 ABG Base Excess ABG Hemoglobin Oxyhemoglobin Sodium Potassium Chloride Carbon Dioxide BUN Creatinine Glucose POC Glucose 132 H 120 H Lactic Acid Calcium Phosphorus Magnesium Direct Bilirubin AST ALT Alkaline Phosphatase Lactate Dehydrogenase Troponin T C-Reactive Protein Total Protein Albumin Prealbumin Triglycerides Cholesterol LDL Cholesterol Direct HDL Cholesterol Urine pH Urine WBC (Auto) Urine Creatinine Urine Total Protein Fluid Total Protein Vancomycin Trough Rheumatoid Factor Complement C4 Miscellaneous Test Crossmatch 11/13/16 11/13/16 11/13/16 11:43 17:09 23:41 WBC RBC Hgb Hct MCV MCH MCHC RDW Plt Count Lymph % (Auto) [place] % (Auto) Lymph # [place] # Baso # Seg Neutrophils % Seg Neuts % (Manual) Lymphocytes % (Manual) Monocytes % (Manual) Eosinophils % (Manual) Basophils % (Manual) Nucleated RBC % Seg Neutrophils # Seg Neutrophils # Man Lymphocytes # (Manual) Monocytes # (Manual) Eosinophils # (Manual) Basophils # (Manual) PT INR Fibrinogen dRVVT Confirm Interp Factor V Activity POC ABG pH POC ABG pCO2 POC ABG pO2 ABG pO2 ABG HCO3 ABG Base Excess ABG Hemoglobin Oxyhemoglobin Sodium Potassium Chloride Carbon Dioxide BUN Creatinine Glucose POC Glucose 114 H 113 H 108 H Lactic Acid Calcium Phosphorus Magnesium Direct Bilirubin AST ALT Alkaline Phosphatase Lactate Dehydrogenase Troponin T C-Reactive Protein Total Protein Albumin Prealbumin Triglycerides Cholesterol LDL Cholesterol Direct HDL Cholesterol Urine pH Urine WBC (Auto) Urine Creatinine Urine Total Protein Fluid Total Protein Vancomycin Trough Rheumatoid Factor Complement C4 Miscellaneous Test Crossmatch 11/13/16 11/15/16 11/15/16 Unknown 00:37 03:30 WBC 11.2 H RBC 2.72 L Hgb 7.6 L Hct 23.4 L MCV MCH MCHC RDW 16.5 H Plt Count Lymph % (Auto) [place] % (Auto) Lymph # [place] # Baso # Seg Neutrophils % Seg Neuts % (Manual) Lymphocytes % (Manual) Monocytes % (Manual) Eosinophils % (Manual) Basophils % (Manual) Nucleated RBC % Seg Neutrophils # Seg Neutrophils # Man Lymphocytes # (Manual) Monocytes # (Manual) Eosinophils # (Manual) Basophils # (Manual) PT INR Fibrinogen dRVVT Confirm Interp Factor V Activity POC ABG pH POC ABG pCO2 POC ABG pO2 ABG pO2 ABG HCO3 ABG Base Excess ABG Hemoglobin Oxyhemoglobin Sodium 135 L Potassium Chloride 95.2 L Carbon Dioxide BUN 52 H Creatinine 2.2 H Glucose POC Glucose 108 H Lactic Acid Calcium Phosphorus Magnesium Direct Bilirubin AST ALT Alkaline Phosphatase Lactate Dehydrogenase Troponin T C-Reactive Protein Total Protein Albumin Prealbumin Triglycerides Cholesterol LDL Cholesterol Direct HDL Cholesterol Urine pH Urine WBC (Auto) Urine Creatinine Urine Total Protein Fluid Total Protein Vancomycin Trough Rheumatoid Factor Complement C4 Miscellaneous Test Crossmatch 11/15/16 11/15/16 11/15/16 03:30 05:04 11:50 WBC RBC Hgb Hct MCV MCH MCHC RDW Plt Count Lymph % (Auto) [place] % (Auto) Lymph # [place] # Baso # Seg Neutrophils % Seg Neuts % (Manual) Lymphocytes % (Manual) Monocytes % (Manual) Eosinophils % (Manual) Basophils % (Manual) Nucleated RBC % Seg Neutrophils # Seg Neutrophils # Man Lymphocytes # (Manual) Monocytes # (Manual) Eosinophils # (Manual) Basophils # (Manual) PT INR Fibrinogen dRVVT Confirm Interp Factor V Activity POC ABG pH POC ABG pCO2 POC ABG pO2 ABG pO2 ABG HCO3 ABG Base Excess ABG Hemoglobin Oxyhemoglobin Sodium Potassium 3.4 L Chloride Carbon Dioxide BUN 25 H Creatinine 1.5 H Glucose 103 H POC Glucose 121 H 144 H Lactic Acid Calcium Phosphorus Magnesium Direct Bilirubin AST ALT Alkaline Phosphatase Lactate Dehydrogenase Troponin T C-Reactive Protein Total Protein Albumin Prealbumin Triglycerides Cholesterol LDL Cholesterol Direct HDL Cholesterol Urine pH Urine WBC (Auto) Urine Creatinine Urine Total Protein Fluid Total Protein Vancomycin Trough Rheumatoid Factor Complement C4 Miscellaneous Test Crossmatch 11/15/16 11/15/16 11/16/16 21:28 23:20 11:44 WBC RBC Hgb Hct MCV MCH MCHC RDW Plt Count Lymph % (Auto) [place] % (Auto) Lymph # [place] # Baso # Seg Neutrophils % Seg Neuts % (Manual) Lymphocytes % (Manual) Monocytes % (Manual) Eosinophils % (Manual) Basophils % (Manual) Nucleated RBC % Seg Neutrophils # Seg Neutrophils # Man Lymphocytes # (Manual) Monocytes # (Manual) Eosinophils # (Manual) Basophils # (Manual) PT INR Fibrinogen dRVVT Confirm Interp Factor V Activity POC ABG pH 7.462 H POC ABG pCO2 POC ABG pO2 71 L ABG pO2 ABG HCO3 ABG Base Excess ABG Hemoglobin Oxyhemoglobin Sodium Potassium Chloride Carbon Dioxide BUN Creatinine Glucose POC Glucose 116 H 133 H Lactic Acid Calcium Phosphorus Magnesium Direct Bilirubin AST ALT Alkaline Phosphatase Lactate Dehydrogenase Troponin T C-Reactive Protein Total Protein Albumin Prealbumin Triglycerides Cholesterol LDL Cholesterol Direct HDL Cholesterol Urine pH Urine WBC (Auto) Urine Creatinine Urine Total Protein Fluid Total Protein Vancomycin Trough Rheumatoid Factor Complement C4 Miscellaneous Test Crossmatch 11/16/16 11/16/16 11/16/16 12:20 17:05 23:35 WBC 11.7 H RBC 2.73 L Hgb 7.6 L Hct 23.7 L MCV MCH MCHC RDW 16.6 H Plt Count Lymph % (Auto) [place] % (Auto) Lymph # [place] # Baso # Seg Neutrophils % Seg Neuts % (Manual) Lymphocytes % (Manual) Monocytes % (Manual) Eosinophils % (Manual) Basophils % (Manual) Nucleated RBC % Seg Neutrophils # Seg Neutrophils # Man Lymphocytes # (Manual) Monocytes # (Manual) Eosinophils # (Manual) Basophils # (Manual) PT INR Fibrinogen dRVVT Confirm Interp Factor V Activity POC ABG pH POC ABG pCO2 POC ABG pO2 ABG pO2 ABG HCO3 ABG Base Excess ABG Hemoglobin Oxyhemoglobin Sodium Potassium Chloride Carbon Dioxide BUN Creatinine Glucose POC Glucose 154 H 125 H Lactic Acid Calcium Phosphorus Magnesium Direct Bilirubin AST ALT Alkaline Phosphatase Lactate Dehydrogenase Troponin T C-Reactive Protein Total Protein Albumin Prealbumin Triglycerides Cholesterol LDL Cholesterol Direct HDL Cholesterol Urine pH Urine WBC (Auto) Urine Creatinine Urine Total Protein Fluid Total Protein Vancomycin Trough Rheumatoid Factor Complement C4 Miscellaneous Test Crossmatch 11/17/16 11/17/16 11/17/16 03:20 03:20 03:20 WBC RBC 2.55 L Hgb 7.3 L Hct 21.9 L MCV MCH MCHC RDW 16.6 H Plt Count Lymph % (Auto) [place] % (Auto) 11.5 H Lymph # [place] # 1.1 H Baso # Seg Neutrophils % Seg Neuts % (Manual) Lymphocytes % (Manual) Monocytes % (Manual) Eosinophils % (Manual) Basophils % (Manual) Nucleated RBC % Seg Neutrophils # Seg Neutrophils # Man Lymphocytes # (Manual) Monocytes # (Manual) Eosinophils # (Manual) Basophils # (Manual) PT 16.8 H INR 1.37 H Fibrinogen dRVVT Confirm Interp Factor V Activity POC ABG pH POC ABG pCO2 POC ABG pO2 ABG pO2 ABG HCO3 ABG Base Excess ABG Hemoglobin Oxyhemoglobin Sodium Potassium 3.5 L Chloride Carbon Dioxide BUN 21 H Creatinine Glucose POC Glucose Lactic Acid Calcium 7.9 L Phosphorus Magnesium Direct Bilirubin AST ALT Alkaline Phosphatase Lactate Dehydrogenase Troponin T C-Reactive Protein Total Protein Albumin Prealbumin Triglycerides Cholesterol LDL Cholesterol Direct HDL Cholesterol Urine pH Urine WBC (Auto) Urine Creatinine Urine Total Protein Fluid Total Protein Vancomycin Trough Rheumatoid Factor Complement C4 Miscellaneous Test Crossmatch 11/17/16 11/17/16 11/17/16 06:34 11:21 21:22 WBC RBC Hgb Hct MCV MCH MCHC RDW Plt Count Lymph % (Auto) [place] % (Auto) Lymph # [place] # Baso # Seg Neutrophils % Seg Neuts % (Manual) Lymphocytes % (Manual) Monocytes % (Manual) Eosinophils % (Manual) Basophils % (Manual) Nucleated RBC % Seg Neutrophils # Seg Neutrophils # Man Lymphocytes # (Manual) Monocytes # (Manual) Eosinophils # (Manual) Basophils # (Manual) PT INR Fibrinogen dRVVT Confirm Interp Factor V Activity POC ABG pH 7.467 H POC ABG pCO2 POC ABG pO2 73 L ABG pO2 ABG HCO3 ABG Base Excess ABG Hemoglobin Oxyhemoglobin Sodium Potassium Chloride Carbon Dioxide BUN Creatinine Glucose POC Glucose 121 H 119 H Lactic Acid Calcium Phosphorus Magnesium Direct Bilirubin AST ALT Alkaline Phosphatase Lactate Dehydrogenase Troponin T C-Reactive Protein Total Protein Albumin Prealbumin Triglycerides Cholesterol LDL Cholesterol Direct HDL Cholesterol Urine pH Urine WBC (Auto) Urine Creatinine Urine Total Protein Fluid Total Protein Vancomycin Trough Rheumatoid Factor Complement C4 Miscellaneous Test Crossmatch 11/18/16 11/18/16 11/19/16 12:16 17:19 00:00 WBC RBC Hgb Hct MCV MCH MCHC RDW Plt Count Lymph % (Auto) [place] % (Auto) Lymph # [place] # Baso # Seg Neutrophils % Seg Neuts % (Manual) Lymphocytes % (Manual) Monocytes % (Manual) Eosinophils % (Manual) Basophils % (Manual) Nucleated RBC % Seg Neutrophils # Seg Neutrophils # Man Lymphocytes # (Manual) Monocytes # (Manual) Eosinophils # (Manual) Basophils # (Manual) PT INR Fibrinogen dRVVT Confirm Interp Factor V Activity POC ABG pH POC ABG pCO2 POC ABG pO2 ABG pO2 ABG HCO3 ABG Base Excess ABG Hemoglobin Oxyhemoglobin Sodium Potassium Chloride Carbon Dioxide BUN Creatinine Glucose POC Glucose 124 H 162 H 139 H Lactic Acid Calcium Phosphorus Magnesium Direct Bilirubin AST ALT Alkaline Phosphatase Lactate Dehydrogenase Troponin T C-Reactive Protein Total Protein Albumin Prealbumin Triglycerides Cholesterol LDL Cholesterol Direct HDL Cholesterol Urine pH Urine WBC (Auto) Urine Creatinine Urine Total Protein Fluid Total Protein Vancomycin Trough Rheumatoid Factor Complement C4 Miscellaneous Test Crossmatch 11/19/16 11/19/16 11/20/16 05:00 12:43 00:40 WBC RBC Hgb Hct MCV MCH MCHC RDW Plt Count Lymph % (Auto) [place] % (Auto) Lymph # [place] # Baso # Seg Neutrophils % Seg Neuts % (Manual) Lymphocytes % (Manual) Monocytes % (Manual) Eosinophils % (Manual) Basophils % (Manual) Nucleated RBC % Seg Neutrophils # Seg Neutrophils # Man Lymphocytes # (Manual) Monocytes # (Manual) Eosinophils # (Manual) Basophils # (Manual) PT INR Fibrinogen dRVVT Confirm Interp Factor V Activity POC ABG pH POC ABG pCO2 POC ABG pO2 ABG pO2 ABG HCO3 ABG Base Excess ABG Hemoglobin Oxyhemoglobin Sodium Potassium Chloride Carbon Dioxide BUN Creatinine Glucose POC Glucose 110 H 125 H 136 H Lactic Acid Calcium Phosphorus Magnesium Direct Bilirubin AST ALT Alkaline Phosphatase Lactate Dehydrogenase Troponin T C-Reactive Protein Total Protein Albumin Prealbumin Triglycerides Cholesterol LDL Cholesterol Direct HDL Cholesterol Urine pH Urine WBC (Auto) Urine Creatinine Urine Total Protein Fluid Total Protein Vancomycin Trough Rheumatoid Factor Complement C4 Miscellaneous Test Crossmatch 11/20/16 11/20/16 11/20/16 05:00 05:00 05:51 WBC 13.1 H RBC 2.74 L Hgb 7.7 L Hct 23.6 L MCV MCH MCHC RDW 16.9 H Plt Count Lymph % (Auto) [place] % (Auto) 10.8 H Lymph # [place] # 1.4 H Baso # Seg Neutrophils % Seg Neuts % (Manual) Lymphocytes % (Manual) Monocytes % (Manual) Eosinophils % (Manual) Basophils % (Manual) Nucleated RBC % Seg Neutrophils # 7.9 H Seg Neutrophils # Man Lymphocytes # (Manual) Monocytes # (Manual) Eosinophils # (Manual) Basophils # (Manual) PT INR Fibrinogen dRVVT Confirm Interp Factor V Activity POC ABG pH POC ABG pCO2 POC ABG pO2 ABG pO2 ABG HCO3 ABG Base Excess ABG Hemoglobin Oxyhemoglobin Sodium Potassium Chloride Carbon Dioxide BUN 31 H Creatinine 1.8 H Glucose 129 H POC Glucose 133 H Lactic Acid Calcium Phosphorus Magnesium Direct Bilirubin AST ALT Alkaline Phosphatase Lactate Dehydrogenase Troponin T C-Reactive Protein Total Protein Albumin Prealbumin Triglycerides Cholesterol LDL Cholesterol Direct HDL Cholesterol Urine pH Urine WBC (Auto) Urine Creatinine Urine Total Protein Fluid Total Protein Vancomycin Trough Rheumatoid Factor Complement C4 Miscellaneous Test Crossmatch 11/20/16 11/20/16 11/21/16 12:40 18:10 01:20 WBC RBC Hgb Hct MCV MCH MCHC RDW Plt Count Lymph % (Auto) [place] % (Auto) Lymph # [place] # Baso # Seg Neutrophils % Seg Neuts % (Manual) Lymphocytes % (Manual) Monocytes % (Manual) Eosinophils % (Manual) Basophils % (Manual) Nucleated RBC % Seg Neutrophils # Seg Neutrophils # Man Lymphocytes # (Manual) Monocytes # (Manual) Eosinophils # (Manual) Basophils # (Manual) PT INR Fibrinogen dRVVT Confirm Interp Factor V Activity POC ABG pH POC ABG pCO2 POC ABG pO2 ABG pO2 ABG HCO3 ABG Base Excess ABG Hemoglobin Oxyhemoglobin Sodium Potassium Chloride Carbon Dioxide BUN Creatinine Glucose POC Glucose 134 H 138 H 136 H Lactic Acid Calcium Phosphorus Magnesium Direct Bilirubin AST ALT Alkaline Phosphatase Lactate Dehydrogenase Troponin T C-Reactive Protein Total Protein Albumin Prealbumin Triglycerides Cholesterol LDL Cholesterol Direct HDL Cholesterol Urine pH Urine WBC (Auto) Urine Creatinine Urine Total Protein Fluid Total Protein Vancomycin Trough Rheumatoid Factor Complement C4 Miscellaneous Test Crossmatch 11/21/16 11/21/16 11/21/16 07:04 07:45 07:45 WBC 22.0 H RBC 2.91 L Hgb 8.2 L Hct 25.4 L MCV MCH MCHC RDW 17.1 H Plt Count Lymph % (Auto) [place] % (Auto) Lymph # [place] # Baso # Seg Neutrophils % Seg Neuts % (Manual) Lymphocytes % (Manual) 8.0 L Monocytes % (Manual) Eosinophils % (Manual) Basophils % (Manual) Nucleated RBC % Seg Neutrophils # Seg Neutrophils # Man 14.7 H Lymphocytes # (Manual) Monocytes # (Manual) 1.1 H Eosinophils # (Manual) Basophils # (Manual) PT INR Fibrinogen dRVVT Confirm Interp Factor V Activity POC ABG pH POC ABG pCO2 POC ABG pO2 ABG pO2 ABG HCO3 ABG Base Excess ABG Hemoglobin Oxyhemoglobin Sodium Potassium Chloride Carbon Dioxide BUN 42 H Creatinine 2.0 H Glucose POC Glucose 108 H Lactic Acid Calcium Phosphorus Magnesium Direct Bilirubin AST ALT Alkaline Phosphatase Lactate Dehydrogenase Troponin T C-Reactive Protein Total Protein Albumin Prealbumin Triglycerides Cholesterol LDL Cholesterol Direct HDL Cholesterol Urine pH Urine WBC (Auto) Urine Creatinine Urine Total Protein Fluid Total Protein Vancomycin Trough Rheumatoid Factor Complement C4 Miscellaneous Test Crossmatch 11/21/16 11/21/16 11/21/16 08:38 10:09 11:20 WBC RBC Hgb Hct MCV MCH MCHC RDW Plt Count Lymph % (Auto) [place] % (Auto) Lymph # [place] # Baso # Seg Neutrophils % Seg Neuts % (Manual) Lymphocytes % (Manual) Monocytes % (Manual) Eosinophils % (Manual) Basophils % (Manual) Nucleated RBC % Seg Neutrophils # Seg Neutrophils # Man Lymphocytes # (Manual) Monocytes # (Manual) Eosinophils # (Manual) Basophils # (Manual) PT INR Fibrinogen dRVVT Confirm Interp Factor V Activity POC ABG pH 7.346 L POC ABG pCO2 34.4 L POC ABG pO2 314 H ABG pO2 ABG HCO3 ABG Base Excess ABG Hemoglobin Oxyhemoglobin Sodium Potassium Chloride Carbon Dioxide BUN Creatinine Glucose POC Glucose 195 H 153 H Lactic Acid Calcium Phosphorus Magnesium Direct Bilirubin AST ALT Alkaline Phosphatase Lactate Dehydrogenase Troponin T C-Reactive Protein Total Protein Albumin Prealbumin Triglycerides Cholesterol LDL Cholesterol Direct HDL Cholesterol Urine pH Urine WBC (Auto) Urine Creatinine Urine Total Protein Fluid Total Protein Vancomycin Trough Rheumatoid Factor Complement C4 Miscellaneous Test Crossmatch 11/21/16 11/22/16 11/22/16 23:37 04:48 05:00 WBC 29.7 H RBC 2.73 L Hgb 7.5 L Hct 24.2 L MCV MCH 27 L MCHC RDW 17.4 H Plt Count Lymph % (Auto) [place] % (Auto) Lymph # [place] # Baso # Seg Neutrophils % Seg Neuts % (Manual) Lymphocytes % (Manual) 7.0 L Monocytes % (Manual) Eosinophils % (Manual) Basophils % (Manual) Nucleated RBC % Seg Neutrophils # Seg Neutrophils # Man 15.4 H Lymphocytes # (Manual) Monocytes # (Manual) Eosinophils # (Manual) Basophils # (Manual) PT INR Fibrinogen dRVVT Confirm Interp Factor V Activity POC ABG pH POC ABG pCO2 24.6 L POC ABG pO2 189 H ABG pO2 ABG HCO3 ABG Base Excess ABG Hemoglobin Oxyhemoglobin Sodium Potassium Chloride Carbon Dioxide BUN Creatinine Glucose POC Glucose 65 L Lactic Acid Calcium Phosphorus Magnesium Direct Bilirubin AST ALT Alkaline Phosphatase Lactate Dehydrogenase Troponin T C-Reactive Protein Total Protein Albumin Prealbumin Triglycerides Cholesterol LDL Cholesterol Direct HDL Cholesterol Urine pH Urine WBC (Auto) Urine Creatinine Urine Total Protein Fluid Total Protein Vancomycin Trough Rheumatoid Factor Complement C4 Miscellaneous Test Crossmatch 11/22/16 11/23/16 11/23/16 05:00 03:44 04:06 WBC RBC 2.52 L Hgb 7.2 L Hct 21.5 L MCV MCH MCHC RDW 17.1 H Plt Count Lymph % (Auto) [place] % (Auto) 12.4 H Lymph # [place] # 1.4 H Baso # Seg Neutrophils % Seg Neuts % (Manual) Lymphocytes % (Manual) Monocytes % (Manual) Eosinophils % (Manual) Basophils % (Manual) Nucleated RBC % Seg Neutrophils # Seg Neutrophils # Man Lymphocytes # (Manual) Monocytes # (Manual) Eosinophils # (Manual) Basophils # (Manual) PT INR Fibrinogen dRVVT Confirm Interp Factor V Activity POC ABG pH 7.493 H POC ABG pCO2 29.5 L POC ABG pO2 49 L ABG pO2 ABG HCO3 ABG Base Excess ABG Hemoglobin Oxyhemoglobin Sodium 134 L Potassium Chloride 95.9 L Carbon Dioxide 14 L D BUN 51 H Creatinine 2.6 H Glucose POC Glucose Lactic Acid Calcium Phosphorus Magnesium Direct Bilirubin AST ALT Alkaline Phosphatase Lactate Dehydrogenase Troponin T C-Reactive Protein Total Protein Albumin Prealbumin Triglycerides Cholesterol LDL Cholesterol Direct HDL Cholesterol Urine pH Urine WBC (Auto) Urine Creatinine Urine Total Protein Fluid Total Protein Vancomycin Trough Rheumatoid Factor Complement C4 Miscellaneous Test Crossmatch 11/23/16 11/23/16 11/24/16 04:06 11:29 06:39 WBC RBC Hgb Hct MCV MCH MCHC RDW Plt Count Lymph % (Auto) [place] % (Auto) Lymph # [place] # Baso # Seg Neutrophils % Seg Neuts % (Manual) Lymphocytes % (Manual) Monocytes % (Manual) Eosinophils % (Manual) Basophils % (Manual) Nucleated RBC % Seg Neutrophils # Seg Neutrophils # Man Lymphocytes # (Manual) Monocytes # (Manual) Eosinophils # (Manual) Basophils # (Manual) PT INR Fibrinogen dRVVT Confirm Interp Factor V Activity POC ABG pH POC ABG pCO2 POC ABG pO2 ABG pO2 ABG HCO3 ABG Base Excess ABG Hemoglobin Oxyhemoglobin Sodium 136 L Potassium Chloride 95.2 L Carbon Dioxide BUN 60 H Creatinine 2.9 H Glucose POC Glucose 69 L 305 H Lactic Acid Calcium Phosphorus Magnesium 1.60 L Direct Bilirubin AST ALT Alkaline Phosphatase Lactate Dehydrogenase Troponin T C-Reactive Protein Total Protein Albumin Prealbumin Triglycerides Cholesterol LDL Cholesterol Direct HDL Cholesterol Urine pH Urine WBC (Auto) Urine Creatinine Urine Total Protein Fluid Total Protein Vancomycin Trough Rheumatoid Factor Complement C4 Miscellaneous Test Crossmatch 11/24/16 11/24/16 11/24/16 06:43 08:08 08:08 WBC 11.2 H RBC 2.47 L Hgb 6.8 L Hct 20.6 L MCV MCH MCHC RDW 17.0 H Plt Count Lymph % (Auto) [place] % (Auto) 10.3 H Lymph # [place] # 1.2 H Baso # Seg Neutrophils % Seg Neuts % (Manual) Lymphocytes % (Manual) Monocytes % (Manual) Eosinophils % (Manual) Basophils % (Manual) Nucleated RBC % Seg Neutrophils # Seg Neutrophils # Man Lymphocytes # (Manual) Monocytes # (Manual) Eosinophils # (Manual) Basophils # (Manual) PT INR Fibrinogen dRVVT Confirm Interp Factor V Activity POC ABG pH POC ABG pCO2 POC ABG pO2 ABG pO2 ABG HCO3 ABG Base Excess ABG Hemoglobin Oxyhemoglobin Sodium 135 L Potassium Chloride 96.3 L Carbon Dioxide BUN 61 H Creatinine 3.1 H Glucose POC Glucose 62 L Lactic Acid Calcium 8.2 L Phosphorus Magnesium Direct Bilirubin AST ALT Alkaline Phosphatase Lactate Dehydrogenase Troponin T C-Reactive Protein Total Protein Albumin Prealbumin Triglycerides Cholesterol LDL Cholesterol Direct HDL Cholesterol Urine pH Urine WBC (Auto) Urine Creatinine Urine Total Protein Fluid Total Protein Vancomycin Trough Rheumatoid Factor Complement C4 Miscellaneous Test Crossmatch 11/24/16 11/24/16 11/24/16 08:34 11:20 12:41 WBC RBC Hgb Hct MCV MCH MCHC RDW Plt Count Lymph % (Auto) [place] % (Auto) Lymph # [place] # Baso # Seg Neutrophils % Seg Neuts % (Manual) Lymphocytes % (Manual) Monocytes % (Manual) Eosinophils % (Manual) Basophils % (Manual) Nucleated RBC % Seg Neutrophils # Seg Neutrophils # Man Lymphocytes # (Manual) Monocytes # (Manual) Eosinophils # (Manual) Basophils # (Manual) PT INR Fibrinogen dRVVT Confirm Interp Factor V Activity POC ABG pH POC ABG pCO2 POC ABG pO2 ABG pO2 ABG HCO3 ABG Base Excess ABG Hemoglobin Oxyhemoglobin Sodium Potassium Chloride Carbon Dioxide BUN Creatinine Glucose POC Glucose 108 H Lactic Acid Calcium Phosphorus Magnesium 1.60 L Direct Bilirubin AST ALT Alkaline Phosphatase Lactate Dehydrogenase Troponin T C-Reactive Protein Total Protein Albumin Prealbumin Triglycerides Cholesterol LDL Cholesterol Direct HDL Cholesterol Urine pH Urine WBC (Auto) Urine Creatinine Urine Total Protein Fluid Total Protein Vancomycin Trough Rheumatoid Factor Complement C4 Miscellaneous Test Crossmatch See Detail 11/25/16 11/25/16 11/25/16 00:03 04:42 04:42 WBC RBC 3.03 L Hgb 8.6 L Hct 25.3 L MCV MCH MCHC RDW 16.2 H Plt Count Lymph % (Auto) [place] % (Auto) 8.1 H Lymph # [place] # Baso # Seg Neutrophils % 71.3 H Seg Neuts % (Manual) Lymphocytes % (Manual) Monocytes % (Manual) Eosinophils % (Manual) Basophils % (Manual) Nucleated RBC % Seg Neutrophils # Seg Neutrophils # Man Lymphocytes # (Manual) Monocytes # (Manual) Eosinophils # (Manual) Basophils # (Manual) PT INR Fibrinogen dRVVT Confirm Interp Factor V Activity POC ABG pH POC ABG pCO2 POC ABG pO2 ABG pO2 ABG HCO3 ABG Base Excess ABG Hemoglobin Oxyhemoglobin Sodium Potassium Chloride Carbon Dioxide BUN 61 H Creatinine 3.0 H Glucose 102 H POC Glucose 113 H Lactic Acid Calcium 8.2 L Phosphorus Magnesium Direct Bilirubin AST ALT Alkaline Phosphatase 142 H Lactate Dehydrogenase Troponin T C-Reactive Protein Total Protein 5.7 L Albumin 1.5 L Prealbumin Triglycerides Cholesterol LDL Cholesterol Direct HDL Cholesterol Urine pH Urine WBC (Auto) Urine Creatinine Urine Total Protein Fluid Total Protein Vancomycin Trough Rheumatoid Factor Complement C4 Miscellaneous Test Crossmatch 11/25/16 11/25/16 11/25/16 05:12 11:31 14:12 WBC RBC Hgb Hct MCV MCH MCHC RDW Plt Count Lymph % (Auto) [place] % (Auto) Lymph # [place] # Baso # Seg Neutrophils % Seg Neuts % (Manual) Lymphocytes % (Manual) Monocytes % (Manual) Eosinophils % (Manual) Basophils % (Manual) Nucleated RBC % Seg Neutrophils # Seg Neutrophils # Man Lymphocytes # (Manual) Monocytes # (Manual) Eosinophils # (Manual) Basophils # (Manual) PT INR Fibrinogen dRVVT Confirm Interp Factor V Activity POC ABG pH 7.487 H POC ABG pCO2 POC ABG pO2 153 H ABG pO2 ABG HCO3 ABG Base Excess ABG Hemoglobin Oxyhemoglobin Sodium Potassium Chloride Carbon Dioxide BUN Creatinine Glucose POC Glucose 131 H 140 H Lactic Acid Calcium Phosphorus Magnesium Direct Bilirubin AST ALT Alkaline Phosphatase Lactate Dehydrogenase Troponin T C-Reactive Protein Total Protein Albumin Prealbumin Triglycerides Cholesterol LDL Cholesterol Direct HDL Cholesterol Urine pH Urine WBC (Auto) Urine Creatinine Urine Total Protein Fluid Total Protein Vancomycin Trough Rheumatoid Factor Complement C4 Miscellaneous Test Crossmatch 11/25/16 11/26/16 11/26/16 17:23 00:09 05:13 WBC RBC 2.94 L Hgb 8.4 L Hct 24.6 L MCV MCH MCHC RDW 16.4 H Plt Count Lymph % (Auto) [place] % (Auto) 12.3 H Lymph # [place] # 1.1 H Baso # Seg Neutrophils % Seg Neuts % (Manual) Lymphocytes % (Manual) Monocytes % (Manual) Eosinophils % (Manual) Basophils % (Manual) Nucleated RBC % Seg Neutrophils # Seg Neutrophils # Man Lymphocytes # (Manual) Monocytes # (Manual) Eosinophils # (Manual) Basophils # (Manual) PT INR Fibrinogen dRVVT Confirm Interp Factor V Activity POC ABG pH POC ABG pCO2 POC ABG pO2 ABG pO2 ABG HCO3 ABG Base Excess ABG Hemoglobin Oxyhemoglobin Sodium Potassium Chloride Carbon Dioxide BUN Creatinine Glucose POC Glucose 146 H 112 H Lactic Acid Calcium Phosphorus Magnesium Direct Bilirubin AST ALT Alkaline Phosphatase Lactate Dehydrogenase Troponin T C-Reactive Protein Total Protein Albumin Prealbumin Triglycerides Cholesterol LDL Cholesterol Direct HDL Cholesterol Urine pH Urine WBC (Auto) Urine Creatinine Urine Total Protein Fluid Total Protein Vancomycin Trough Rheumatoid Factor Complement C4 Miscellaneous Test Crossmatch 11/26/16 11/26/16 11/26/16 05:13 05:28 11:53 WBC RBC Hgb Hct MCV MCH MCHC RDW Plt Count Lymph % (Auto) [place] % (Auto) Lymph # [place] # Baso # Seg Neutrophils % Seg Neuts % (Manual) Lymphocytes % (Manual) Monocytes % (Manual) Eosinophils % (Manual) Basophils % (Manual) Nucleated RBC % Seg Neutrophils # Seg Neutrophils # Man Lymphocytes # (Manual) Monocytes # (Manual) Eosinophils # (Manual) Basophils # (Manual) PT INR Fibrinogen dRVVT Confirm Interp Factor V Activity POC ABG pH POC ABG pCO2 POC ABG pO2 ABG pO2 ABG HCO3 ABG Base Excess ABG Hemoglobin Oxyhemoglobin Sodium Potassium Chloride 97.8 L Carbon Dioxide BUN 37 H Creatinine 2.0 H Glucose 109 H POC Glucose 117 H 111 H Lactic Acid Calcium 7.9 L Phosphorus 1.80 L D Magnesium Direct Bilirubin AST ALT Alkaline Phosphatase Lactate Dehydrogenase Troponin T C-Reactive Protein Total Protein Albumin Prealbumin Triglycerides Cholesterol LDL Cholesterol Direct HDL Cholesterol Urine pH Urine WBC (Auto) Urine Creatinine Urine Total Protein Fluid Total Protein Vancomycin Trough Rheumatoid Factor Complement C4 Miscellaneous Test Crossmatch 11/26/16 11/27/16 11/27/16 17:14 04:50 06:02 WBC RBC Hgb Hct MCV MCH MCHC RDW Plt Count Lymph % (Auto) [place] % (Auto) Lymph # [place] # Baso # Seg Neutrophils % Seg Neuts % (Manual) Lymphocytes % (Manual) Monocytes % (Manual) Eosinophils % (Manual) Basophils % (Manual) Nucleated RBC % Seg Neutrophils # Seg Neutrophils # Man Lymphocytes # (Manual) Monocytes # (Manual) Eosinophils # (Manual) Basophils # (Manual) PT INR Fibrinogen dRVVT Confirm Interp Factor V Activity POC ABG pH POC ABG pCO2 POC ABG pO2 ABG pO2 75.2 L ABG HCO3 26.4 H ABG Base Excess ABG Hemoglobin 7.6 L Oxyhemoglobin 94.8 L Sodium Potassium Chloride Carbon Dioxide BUN 49 H Creatinine 2.3 H Glucose POC Glucose 115 H Lactic Acid Calcium Phosphorus 1.50 L Magnesium Direct Bilirubin AST ALT Alkaline Phosphatase Lactate Dehydrogenase Troponin T C-Reactive Protein Total Protein Albumin Prealbumin Triglycerides Cholesterol LDL Cholesterol Direct HDL Cholesterol Urine pH Urine WBC (Auto) Urine Creatinine Urine Total Protein Fluid Total Protein Vancomycin Trough Rheumatoid Factor Complement C4 Miscellaneous Test Crossmatch 11/27/16 11/27/16 11/27/16 06:02 11:25 17:25 WBC 11.6 H RBC 2.75 L Hgb 7.6 L Hct 23.4 L MCV MCH MCHC RDW 16.5 H Plt Count Lymph % (Auto) [place] % (Auto) Lymph # [place] # Baso # Seg Neutrophils % Seg Neuts % (Manual) Lymphocytes % (Manual) Monocytes % (Manual) Eosinophils % (Manual) Basophils % (Manual) Nucleated RBC % Seg Neutrophils # Seg Neutrophils # Man Lymphocytes # (Manual) Monocytes # (Manual) Eosinophils # (Manual) Basophils # (Manual) PT INR Fibrinogen dRVVT Confirm Interp Factor V Activity POC ABG pH POC ABG pCO2 POC ABG pO2 ABG pO2 ABG HCO3 ABG Base Excess ABG Hemoglobin Oxyhemoglobin Sodium Potassium Chloride Carbon Dioxide BUN Creatinine Glucose POC Glucose 114 H 126 H Lactic Acid Calcium Phosphorus Magnesium Direct Bilirubin AST ALT Alkaline Phosphatase Lactate Dehydrogenase Troponin T C-Reactive Protein Total Protein Albumin Prealbumin Triglycerides Cholesterol LDL Cholesterol Direct HDL Cholesterol Urine pH Urine WBC (Auto) Urine Creatinine Urine Total Protein Fluid Total Protein Vancomycin Trough Rheumatoid Factor Complement C4 Miscellaneous Test Crossmatch 11/28/16 11/28/16 11/28/16 04:45 05:33 05:44 WBC RBC Hgb Hct MCV MCH MCHC RDW Plt Count Lymph % (Auto) [place] % (Auto) Lymph # [place] # Baso # Seg Neutrophils % Seg Neuts % (Manual) Lymphocytes % (Manual) Monocytes % (Manual) Eosinophils % (Manual) Basophils % (Manual) Nucleated RBC % Seg Neutrophils # Seg Neutrophils # Man Lymphocytes # (Manual) Monocytes # (Manual) Eosinophils # (Manual) Basophils # (Manual) PT INR Fibrinogen dRVVT Confirm Interp Factor V Activity POC ABG pH POC ABG pCO2 POC ABG pO2 ABG pO2 99.3 H ABG HCO3 ABG Base Excess ABG Hemoglobin 8.3 L Oxyhemoglobin Sodium Potassium Chloride Carbon Dioxide BUN 63 H Creatinine 2.4 H Glucose 102 H POC Glucose 108 H Lactic Acid Calcium Phosphorus 1.80 L Magnesium Direct Bilirubin AST ALT Alkaline Phosphatase Lactate Dehydrogenase Troponin T C-Reactive Protein Total Protein Albumin Prealbumin Triglycerides Cholesterol LDL Cholesterol Direct HDL Cholesterol Urine pH Urine WBC (Auto) Urine Creatinine Urine Total Protein Fluid Total Protein Vancomycin Trough Rheumatoid Factor Complement C4 Miscellaneous Test Crossmatch 11/28/16 11/28/16 11/28/16 12:31 16:09 23:46 WBC RBC Hgb Hct MCV MCH MCHC RDW Plt Count Lymph % (Auto) [place] % (Auto) Lymph # [place] # Baso # Seg Neutrophils % Seg Neuts % (Manual) Lymphocytes % (Manual) Monocytes % (Manual) Eosinophils % (Manual) Basophils % (Manual) Nucleated RBC % Seg Neutrophils # Seg Neutrophils # Man Lymphocytes # (Manual) Monocytes # (Manual) Eosinophils # (Manual) Basophils # (Manual) PT INR Fibrinogen dRVVT Confirm Interp Factor V Activity POC ABG pH POC ABG pCO2 POC ABG pO2 ABG pO2 ABG HCO3 ABG Base Excess ABG Hemoglobin Oxyhemoglobin Sodium Potassium Chloride Carbon Dioxide BUN Creatinine Glucose POC Glucose 126 H 111 H 119 H Lactic Acid Calcium Phosphorus Magnesium Direct Bilirubin AST ALT Alkaline Phosphatase Lactate Dehydrogenase Troponin T C-Reactive Protein Total Protein Albumin Prealbumin Triglycerides Cholesterol LDL Cholesterol Direct HDL Cholesterol Urine pH Urine WBC (Auto) Urine Creatinine Urine Total Protein Fluid Total Protein Vancomycin Trough Rheumatoid Factor Complement C4 Miscellaneous Test Crossmatch 11/29/16 11/29/16 11/29/16 03:33 04:52 05:10 WBC RBC Hgb Hct MCV MCH MCHC RDW Plt Count Lymph % (Auto) [place] % (Auto) Lymph # [place] # Baso # Seg Neutrophils % Seg Neuts % (Manual) Lymphocytes % (Manual) Monocytes % (Manual) Eosinophils % (Manual) Basophils % (Manual) Nucleated RBC % Seg Neutrophils # Seg Neutrophils # Man Lymphocytes # (Manual) Monocytes # (Manual) Eosinophils # (Manual) Basophils # (Manual) PT INR Fibrinogen dRVVT Confirm Interp Factor V Activity POC ABG pH POC ABG pCO2 POC ABG pO2 ABG pO2 ABG HCO3 ABG Base Excess ABG Hemoglobin 7.0 L Oxyhemoglobin 94.9 L Sodium Potassium Chloride Carbon Dioxide BUN 73 H Creatinine 2.7 H Glucose POC Glucose 108 H Lactic Acid Calcium Phosphorus Magnesium Direct Bilirubin AST ALT Alkaline Phosphatase Lactate Dehydrogenase Troponin T C-Reactive Protein Total Protein Albumin Prealbumin Triglycerides Cholesterol LDL Cholesterol Direct HDL Cholesterol Urine pH Urine WBC (Auto) Urine Creatinine Urine Total Protein Fluid Total Protein Vancomycin Trough Rheumatoid Factor Complement C4 Miscellaneous Test Crossmatch 11/29/16 11/29/16 11/29/16 12:16 18:05 23:46 WBC RBC Hgb Hct MCV MCH MCHC RDW Plt Count Lymph % (Auto) [place] % (Auto) Lymph # [place] # Baso # Seg Neutrophils % Seg Neuts % (Manual) Lymphocytes % (Manual) Monocytes % (Manual) Eosinophils % (Manual) Basophils % (Manual) Nucleated RBC % Seg Neutrophils # Seg Neutrophils # Man Lymphocytes # (Manual) Monocytes # (Manual) Eosinophils # (Manual) Basophils # (Manual) PT INR Fibrinogen dRVVT Confirm Interp Factor V Activity POC ABG pH POC ABG pCO2 POC ABG pO2 ABG pO2 ABG HCO3 ABG Base Excess ABG Hemoglobin Oxyhemoglobin Sodium Potassium Chloride Carbon Dioxide BUN Creatinine Glucose POC Glucose 133 H 146 H 141 H Lactic Acid Calcium Phosphorus Magnesium Direct Bilirubin AST ALT Alkaline Phosphatase Lactate Dehydrogenase Troponin T C-Reactive Protein Total Protein Albumin Prealbumin Triglycerides Cholesterol LDL Cholesterol Direct HDL Cholesterol Urine pH Urine WBC (Auto) Urine Creatinine Urine Total Protein Fluid Total Protein Vancomycin Trough Rheumatoid Factor Complement C4 Miscellaneous Test Crossmatch 11/30/16 11/30/16 11/30/16 04:17 04:17 04:32 WBC 12.0 H RBC 2.80 L Hgb 7.8 L Hct 23.6 L MCV MCH MCHC RDW 16.6 H Plt Count Lymph % (Auto) [place] % (Auto) 11.3 H Lymph # [place] # 1.4 H Baso # Seg Neutrophils % Seg Neuts % (Manual) Lymphocytes % (Manual) Monocytes % (Manual) Eosinophils % (Manual) Basophils % (Manual) Nucleated RBC % Seg Neutrophils # 8.2 H Seg Neutrophils # Man Lymphocytes # (Manual) Monocytes # (Manual) Eosinophils # (Manual) Basophils # (Manual) PT INR Fibrinogen dRVVT Confirm Interp Factor V Activity POC ABG pH POC ABG pCO2 POC ABG pO2 ABG pO2 ABG HCO3 ABG Base Excess ABG Hemoglobin Oxyhemoglobin Sodium 169 H* D Potassium 5.1 H Chloride 121.5 H Carbon Dioxide BUN 34 H Creatinine 1.3 H D Glucose 133 H POC Glucose 131 H Lactic Acid Calcium 10.3 H Phosphorus Magnesium Direct Bilirubin AST ALT Alkaline Phosphatase Lactate Dehydrogenase Troponin T C-Reactive Protein Total Protein Albumin Prealbumin Triglycerides Cholesterol LDL Cholesterol Direct HDL Cholesterol Urine pH Urine WBC (Auto) Urine Creatinine Urine Total Protein Fluid Total Protein Vancomycin Trough Rheumatoid Factor Complement C4 Miscellaneous Test Crossmatch 11/30/16 11/30/16 11/30/16 05:45 11:10 17:26 WBC RBC Hgb Hct MCV MCH MCHC RDW Plt Count Lymph % (Auto) [place] % (Auto) Lymph # [place] # Baso # Seg Neutrophils % Seg Neuts % (Manual) Lymphocytes % (Manual) Monocytes % (Manual) Eosinophils % (Manual) Basophils % (Manual) Nucleated RBC % Seg Neutrophils # Seg Neutrophils # Man Lymphocytes # (Manual) Monocytes # (Manual) Eosinophils # (Manual) Basophils # (Manual) PT INR Fibrinogen dRVVT Confirm Interp Factor V Activity POC ABG pH POC ABG pCO2 POC ABG pO2 ABG pO2 ABG HCO3 ABG Base Excess ABG Hemoglobin Oxyhemoglobin Sodium Potassium Chloride Carbon Dioxide BUN 45 H Creatinine 1.6 H Glucose 131 H POC Glucose 146 H 134 H Lactic Acid Calcium Phosphorus Magnesium Direct Bilirubin AST ALT Alkaline Phosphatase Lactate Dehydrogenase Troponin T C-Reactive Protein Total Protein Albumin Prealbumin Triglycerides Cholesterol LDL Cholesterol Direct HDL Cholesterol Urine pH Urine WBC (Auto) Urine Creatinine Urine Total Protein Fluid Total Protein Vancomycin Trough Rheumatoid Factor Complement C4 Miscellaneous Test Crossmatch 11/30/16 12/01/16 12/01/16 23:35 00:06 03:35 WBC RBC Hgb Hct MCV MCH MCHC RDW Plt Count Lymph % (Auto) [place] % (Auto) Lymph # [place] # Baso # Seg Neutrophils % Seg Neuts % (Manual) Lymphocytes % (Manual) Monocytes % (Manual) Eosinophils % (Manual) Basophils % (Manual) Nucleated RBC % Seg Neutrophils # Seg Neutrophils # Man Lymphocytes # (Manual) Monocytes # (Manual) Eosinophils # (Manual) Basophils # (Manual) PT INR Fibrinogen dRVVT Confirm Interp Factor V Activity POC ABG pH POC ABG pCO2 POC ABG pO2 ABG pO2 ABG HCO3 ABG Base Excess ABG Hemoglobin 6.9 L Oxyhemoglobin Sodium Potassium Chloride Carbon Dioxide BUN 58 H Creatinine 1.8 H Glucose 146 H POC Glucose 151 H Lactic Acid Calcium Phosphorus Magnesium Direct Bilirubin AST ALT Alkaline Phosphatase Lactate Dehydrogenase Troponin T C-Reactive Protein Total Protein Albumin Prealbumin Triglycerides Cholesterol LDL Cholesterol Direct HDL Cholesterol Urine pH Urine WBC (Auto) Urine Creatinine Urine Total Protein Fluid Total Protein Vancomycin Trough Rheumatoid Factor Complement C4 Miscellaneous Test Crossmatch 12/01/16 12/01/16 12/01/16 03:35 05:47 11:52 WBC 12.3 H RBC 2.82 L Hgb 7.8 L Hct 23.7 L MCV MCH MCHC RDW 16.7 H Plt Count Lymph % (Auto) [place] % (Auto) 9.8 H Lymph # [place] # 1.2 H Baso # Seg Neutrophils % Seg Neuts % (Manual) Lymphocytes % (Manual) Monocytes % (Manual) Eosinophils % (Manual) Basophils % (Manual) Nucleated RBC % Seg Neutrophils # 8.4 H Seg Neutrophils # Man Lymphocytes # (Manual) Monocytes # (Manual) Eosinophils # (Manual) Basophils # (Manual) PT INR Fibrinogen dRVVT Confirm Interp Factor V Activity POC ABG pH POC ABG pCO2 POC ABG pO2 ABG pO2 ABG HCO3 ABG Base Excess ABG Hemoglobin Oxyhemoglobin Sodium Potassium Chloride Carbon Dioxide BUN Creatinine Glucose POC Glucose 152 H 152 H Lactic Acid Calcium Phosphorus Magnesium Direct Bilirubin AST ALT Alkaline Phosphatase Lactate Dehydrogenase Troponin T C-Reactive Protein Total Protein Albumin Prealbumin Triglycerides Cholesterol LDL Cholesterol Direct HDL Cholesterol Urine pH Urine WBC (Auto) Urine Creatinine Urine Total Protein Fluid Total Protein Vancomycin Trough Rheumatoid Factor Complement C4 Miscellaneous Test Crossmatch 12/01/16 12/01/16 12/02/16 17:40 23:41 05:00 WBC RBC Hgb Hct MCV MCH MCHC RDW Plt Count Lymph % (Auto) [place] % (Auto) Lymph # [place] # Baso # Seg Neutrophils % Seg Neuts % (Manual) Lymphocytes % (Manual) Monocytes % (Manual) Eosinophils % (Manual) Basophils % (Manual) Nucleated RBC % Seg Neutrophils # Seg Neutrophils # Man Lymphocytes # (Manual) Monocytes # (Manual) Eosinophils # (Manual) Basophils # (Manual) PT INR Fibrinogen dRVVT Confirm Interp Factor V Activity POC ABG pH POC ABG pCO2 POC ABG pO2 ABG pO2 ABG HCO3 ABG Base Excess ABG Hemoglobin Oxyhemoglobin Sodium Potassium Chloride Carbon Dioxide BUN 45 H Creatinine Glucose 115 H POC Glucose 140 H 144 H Lactic Acid Calcium Phosphorus Magnesium Direct Bilirubin AST ALT Alkaline Phosphatase Lactate Dehydrogenase Troponin T C-Reactive Protein Total Protein Albumin Prealbumin Triglycerides Cholesterol LDL Cholesterol Direct HDL Cholesterol Urine pH Urine WBC (Auto) Urine Creatinine Urine Total Protein Fluid Total Protein Vancomycin Trough Rheumatoid Factor Complement C4 Miscellaneous Test Crossmatch 12/02/16 12/02/16 12/02/16 05:31 11:20 17:38 WBC RBC Hgb Hct MCV MCH MCHC RDW Plt Count Lymph % (Auto) [place] % (Auto) Lymph # [place] # Baso # Seg Neutrophils % Seg Neuts % (Manual) Lymphocytes % (Manual) Monocytes % (Manual) Eosinophils % (Manual) Basophils % (Manual) Nucleated RBC % Seg Neutrophils # Seg Neutrophils # Man Lymphocytes # (Manual) Monocytes # (Manual) Eosinophils # (Manual) Basophils # (Manual) PT INR Fibrinogen dRVVT Confirm Interp Factor V Activity POC ABG pH POC ABG pCO2 POC ABG pO2 ABG pO2 ABG HCO3 ABG Base Excess ABG Hemoglobin Oxyhemoglobin Sodium Potassium Chloride Carbon Dioxide BUN Creatinine Glucose POC Glucose 136 H 177 H 139 H Lactic Acid Calcium Phosphorus Magnesium Direct Bilirubin AST ALT Alkaline Phosphatase Lactate Dehydrogenase Troponin T C-Reactive Protein Total Protein Albumin Prealbumin Triglycerides Cholesterol LDL Cholesterol Direct HDL Cholesterol Urine pH Urine WBC (Auto) Urine Creatinine Urine Total Protein Fluid Total Protein Vancomycin Trough Rheumatoid Factor Complement C4 Miscellaneous Test Crossmatch 12/02/16 12/03/16 12/03/16 23:43 04:00 04:00 WBC 20.4 H RBC 2.74 L Hgb 7.4 L Hct 23.6 L MCV MCH 27 L MCHC RDW 17.1 H Plt Count Lymph % (Auto) [place] % (Auto) Lymph # [place] # Baso # Seg Neutrophils % Seg Neuts % (Manual) 31.0 L Lymphocytes % (Manual) Monocytes % (Manual) Eosinophils % (Manual) Basophils % (Manual) Nucleated RBC % Seg Neutrophils # Seg Neutrophils # Man Lymphocytes # (Manual) Monocytes # (Manual) Eosinophils # (Manual) Basophils # (Manual) PT INR Fibrinogen dRVVT Confirm Interp Factor V Activity POC ABG pH POC ABG pCO2 POC ABG pO2 ABG pO2 ABG HCO3 ABG Base Excess ABG Hemoglobin Oxyhemoglobin Sodium Potassium Chloride Carbon Dioxide BUN 61 H Creatinine 1.6 H Glucose 119 H POC Glucose 158 H Lactic Acid Calcium Phosphorus Magnesium Direct Bilirubin AST ALT Alkaline Phosphatase Lactate Dehydrogenase Troponin T C-Reactive Protein Total Protein Albumin Prealbumin Triglycerides Cholesterol LDL Cholesterol Direct HDL Cholesterol Urine pH Urine WBC (Auto) Urine Creatinine Urine Total Protein Fluid Total Protein Vancomycin Trough Rheumatoid Factor Complement C4 Miscellaneous Test Crossmatch 12/03/16 12/03/16 12/03/16 05:02 12:11 18:16 WBC RBC Hgb Hct MCV MCH MCHC RDW Plt Count Lymph % (Auto) [place] % (Auto) Lymph # [place] # Baso # Seg Neutrophils % Seg Neuts % (Manual) Lymphocytes % (Manual) Monocytes % (Manual) Eosinophils % (Manual) Basophils % (Manual) Nucleated RBC % Seg Neutrophils # Seg Neutrophils # Man Lymphocytes # (Manual) Monocytes # (Manual) Eosinophils # (Manual) Basophils # (Manual) PT INR Fibrinogen dRVVT Confirm Interp Factor V Activity POC ABG pH POC ABG pCO2 POC ABG pO2 ABG pO2 ABG HCO3 ABG Base Excess ABG Hemoglobin Oxyhemoglobin Sodium Potassium Chloride Carbon Dioxide BUN Creatinine Glucose POC Glucose 146 H 157 H 124 H Lactic Acid Calcium Phosphorus Magnesium Direct Bilirubin AST ALT Alkaline Phosphatase Lactate Dehydrogenase Troponin T C-Reactive Protein Total Protein Albumin Prealbumin Triglycerides Cholesterol LDL Cholesterol Direct HDL Cholesterol Urine pH Urine WBC (Auto) Urine Creatinine Urine Total Protein Fluid Total Protein Vancomycin Trough Rheumatoid Factor Complement C4 Miscellaneous Test Crossmatch 12/03/16 12/04/16 12/04/16 23:41 04:00 04:45 WBC RBC Hgb Hct MCV MCH MCHC RDW Plt Count Lymph % (Auto) [place] % (Auto) Lymph # [place] # Baso # Seg Neutrophils % Seg Neuts % (Manual) Lymphocytes % (Manual) Monocytes % (Manual) Eosinophils % (Manual) Basophils % (Manual) Nucleated RBC % Seg Neutrophils # Seg Neutrophils # Man Lymphocytes # (Manual) Monocytes # (Manual) Eosinophils # (Manual) Basophils # (Manual) PT INR Fibrinogen dRVVT Confirm Interp Factor V Activity POC ABG pH POC ABG pCO2 POC ABG pO2 ABG pO2 ABG HCO3 ABG Base Excess ABG Hemoglobin Oxyhemoglobin Sodium Potassium Chloride Carbon Dioxide BUN 76 H Creatinine 1.6 H Glucose POC Glucose 130 H 136 H Lactic Acid Calcium Phosphorus Magnesium Direct Bilirubin AST ALT Alkaline Phosphatase 155 H Lactate Dehydrogenase Troponin T C-Reactive Protein Total Protein 5.5 L Albumin 1.5 L Prealbumin Triglycerides Cholesterol LDL Cholesterol Direct HDL Cholesterol Urine pH Urine WBC (Auto) Urine Creatinine Urine Total Protein Fluid Total Protein Vancomycin Trough Rheumatoid Factor Complement C4 Miscellaneous Test Crossmatch 12/04/16 12/04/16 12/05/16 12:08 17:23 00:10 WBC RBC Hgb Hct MCV MCH MCHC RDW Plt Count Lymph % (Auto) [place] % (Auto) Lymph # [place] # Baso # Seg Neutrophils % Seg Neuts % (Manual) Lymphocytes % (Manual) Monocytes % (Manual) Eosinophils % (Manual) Basophils % (Manual) Nucleated RBC % Seg Neutrophils # Seg Neutrophils # Man Lymphocytes # (Manual) Monocytes # (Manual) Eosinophils # (Manual) Basophils # (Manual) PT INR Fibrinogen dRVVT Confirm Interp Factor V Activity POC ABG pH POC ABG pCO2 POC ABG pO2 ABG pO2 ABG HCO3 ABG Base Excess ABG Hemoglobin Oxyhemoglobin Sodium Potassium Chloride Carbon Dioxide BUN Creatinine Glucose POC Glucose 114 H 129 H 124 H Lactic Acid Calcium Phosphorus Magnesium Direct Bilirubin AST ALT Alkaline Phosphatase Lactate Dehydrogenase Troponin T C-Reactive Protein Total Protein Albumin Prealbumin Triglycerides Cholesterol LDL Cholesterol Direct HDL Cholesterol Urine pH Urine WBC (Auto) Urine Creatinine Urine Total Protein Fluid Total Protein Vancomycin Trough Rheumatoid Factor Complement C4 Miscellaneous Test Crossmatch 12/05/16 12/05/16 12/05/16 05:00 05:00 05:18 WBC RBC Hgb Hct MCV MCH MCHC RDW Plt Count Lymph % (Auto) [place] % (Auto) Lymph # [place] # Baso # Seg Neutrophils % Seg Neuts % (Manual) Lymphocytes % (Manual) Monocytes % (Manual) Eosinophils % (Manual) Basophils % (Manual) Nucleated RBC % Seg Neutrophils # Seg Neutrophils # Man Lymphocytes # (Manual) Monocytes # (Manual) Eosinophils # (Manual) Basophils # (Manual) PT INR Fibrinogen dRVVT Confirm Interp Factor V Activity POC ABG pH POC ABG pCO2 POC ABG pO2 ABG pO2 ABG HCO3 ABG Base Excess ABG Hemoglobin Oxyhemoglobin Sodium Potassium Chloride Carbon Dioxide 21 L BUN 85 H Creatinine 1.9 H Glucose 131 H POC Glucose 154 H Lactic Acid Calcium Phosphorus Magnesium Direct Bilirubin AST ALT Alkaline Phosphatase Lactate Dehydrogenase Troponin T C-Reactive Protein 19.30 H Total Protein Albumin Prealbumin Triglycerides Cholesterol LDL Cholesterol Direct HDL Cholesterol Urine pH Urine WBC (Auto) Urine Creatinine Urine Total Protein Fluid Total Protein Vancomycin Trough Rheumatoid Factor Complement C4 Miscellaneous Test Crossmatch 12/05/16 12/05/16 12/05/16 11:43 17:46 23:25 WBC RBC Hgb Hct MCV MCH MCHC RDW Plt Count Lymph % (Auto) [place] % (Auto) Lymph # [place] # Baso # Seg Neutrophils % Seg Neuts % (Manual) Lymphocytes % (Manual) Monocytes % (Manual) Eosinophils % (Manual) Basophils % (Manual) Nucleated RBC % Seg Neutrophils # Seg Neutrophils # Man Lymphocytes # (Manual) Monocytes # (Manual) Eosinophils # (Manual) Basophils # (Manual) PT INR Fibrinogen dRVVT Confirm Interp Factor V Activity POC ABG pH POC ABG pCO2 POC ABG pO2 ABG pO2 ABG HCO3 ABG Base Excess ABG Hemoglobin Oxyhemoglobin Sodium Potassium Chloride Carbon Dioxide BUN Creatinine Glucose POC Glucose 117 H 113 H 111 H Lactic Acid Calcium Phosphorus Magnesium Direct Bilirubin AST ALT Alkaline Phosphatase Lactate Dehydrogenase Troponin T C-Reactive Protein Total Protein Albumin Prealbumin Triglycerides Cholesterol LDL Cholesterol Direct HDL Cholesterol Urine pH Urine WBC (Auto) Urine Creatinine Urine Total Protein Fluid Total Protein Vancomycin Trough Rheumatoid Factor Complement C4 Miscellaneous Test Crossmatch 12/05/16 12/06/16 12/06/16 Unknown 04:58 06:00 WBC RBC Hgb Hct MCV MCH MCHC RDW Plt Count Lymph % (Auto) [place] % (Auto) Lymph # [place] # Baso # Seg Neutrophils % Seg Neuts % (Manual) Lymphocytes % (Manual) Monocytes % (Manual) Eosinophils % (Manual) Basophils % (Manual) Nucleated RBC % Seg Neutrophils # Seg Neutrophils # Man Lymphocytes # (Manual) Monocytes # (Manual) Eosinophils # (Manual) Basophils # (Manual) PT INR Fibrinogen dRVVT Confirm Interp Factor V Activity POC ABG pH POC ABG pCO2 POC ABG pO2 ABG pO2 75.2 L ABG HCO3 ABG Base Excess -3.4 L ABG Hemoglobin 7.4 L Oxyhemoglobin 94.5 L Sodium Potassium Chloride Carbon Dioxide 20 L BUN 99 H Creatinine 2.1 H Glucose 126 H POC Glucose 145 H Lactic Acid Calcium Phosphorus 4.80 H Magnesium Direct Bilirubin AST ALT Alkaline Phosphatase Lactate Dehydrogenase Troponin T C-Reactive Protein Total Protein Albumin Prealbumin Triglycerides Cholesterol LDL Cholesterol Direct HDL Cholesterol Urine pH Urine WBC (Auto) Urine Creatinine Urine Total Protein Fluid Total Protein Vancomycin Trough Rheumatoid Factor Complement C4 Miscellaneous Test Crossmatch 12/06/16 12/06/16 12/06/16 06:46 11:54 17:55 WBC RBC Hgb 8.3 L Hct 26.4 L MCV MCH MCHC RDW Plt Count Lymph % (Auto) [place] % (Auto) Lymph # [place] # Baso # Seg Neutrophils % Seg Neuts % (Manual) Lymphocytes % (Manual) Monocytes % (Manual) Eosinophils % (Manual) Basophils % (Manual) Nucleated RBC % Seg Neutrophils # Seg Neutrophils # Man Lymphocytes # (Manual) Monocytes # (Manual) Eosinophils # (Manual) Basophils # (Manual) PT INR Fibrinogen dRVVT Confirm Interp Factor V Activity POC ABG pH POC ABG pCO2 POC ABG pO2 ABG pO2 ABG HCO3 ABG Base Excess ABG Hemoglobin Oxyhemoglobin Sodium Potassium Chloride Carbon Dioxide BUN Creatinine Glucose POC Glucose 126 H 157 H Lactic Acid Calcium Phosphorus Magnesium Direct Bilirubin AST ALT Alkaline Phosphatase Lactate Dehydrogenase Troponin T C-Reactive Protein Total Protein Albumin Prealbumin Triglycerides Cholesterol LDL Cholesterol Direct HDL Cholesterol Urine pH Urine WBC (Auto) Urine Creatinine Urine Total Protein Fluid Total Protein Vancomycin Trough Rheumatoid Factor Complement C4 Miscellaneous Test Crossmatch 12/06/16 12/07/16 12/07/16 23:59 05:34 06:30 WBC RBC Hgb Hct MCV MCH MCHC RDW Plt Count Lymph % (Auto) [place] % (Auto) Lymph # [place] # Baso # Seg Neutrophils % Seg Neuts % (Manual) Lymphocytes % (Manual) Monocytes % (Manual) Eosinophils % (Manual) Basophils % (Manual) Nucleated RBC % Seg Neutrophils # Seg Neutrophils # Man Lymphocytes # (Manual) Monocytes # (Manual) Eosinophils # (Manual) Basophils # (Manual) PT INR Fibrinogen dRVVT Confirm Interp Factor V Activity POC ABG pH POC ABG pCO2 POC ABG pO2 ABG pO2 ABG HCO3 ABG Base Excess ABG Hemoglobin Oxyhemoglobin Sodium Potassium Chloride Carbon Dioxide BUN 67 H Creatinine 1.4 H Glucose 126 H POC Glucose 129 H 129 H Lactic Acid Calcium Phosphorus Magnesium Direct Bilirubin AST ALT Alkaline Phosphatase Lactate Dehydrogenase Troponin T C-Reactive Protein Total Protein Albumin Prealbumin Triglycerides Cholesterol LDL Cholesterol Direct HDL Cholesterol Urine pH Urine WBC (Auto) Urine Creatinine Urine Total Protein Fluid Total Protein Vancomycin Trough Rheumatoid Factor Complement C4 Miscellaneous Test Crossmatch 12/07/16 12/07/16 12/07/16 06:30 08:00 09:45 WBC 18.8 H RBC 2.52 L Hgb 6.9 L 6.8 L Hct 21.2 L 21.1 L MCV MCH 27 L MCHC RDW 18.0 H Plt Count Lymph % (Auto) [place] % (Auto) 9.9 H Lymph # [place] # 1.9 H Baso # Seg Neutrophils % 71.8 H Seg Neuts % (Manual) Lymphocytes % (Manual) Monocytes % (Manual) Eosinophils % (Manual) Basophils % (Manual) Nucleated RBC % Seg Neutrophils # 13.5 H Seg Neutrophils # Man Lymphocytes # (Manual) Monocytes # (Manual) Eosinophils # (Manual) Basophils # (Manual) PT INR Fibrinogen dRVVT Confirm Interp Factor V Activity POC ABG pH POC ABG pCO2 POC ABG pO2 ABG pO2 ABG HCO3 ABG Base Excess ABG Hemoglobin Oxyhemoglobin Sodium Potassium Chloride Carbon Dioxide BUN Creatinine Glucose POC Glucose Lactic Acid Calcium Phosphorus Magnesium Direct Bilirubin AST ALT Alkaline Phosphatase Lactate Dehydrogenase Troponin T C-Reactive Protein Total Protein Albumin Prealbumin Triglycerides Cholesterol LDL Cholesterol Direct HDL Cholesterol Urine pH Urine WBC (Auto) Urine Creatinine Urine Total Protein Fluid Total Protein Vancomycin Trough Rheumatoid Factor Complement C4 Miscellaneous Test Crossmatch See Detail 12/07/16 12/07/16 12/07/16 11:44 18:19 23:59 WBC RBC Hgb Hct MCV MCH MCHC RDW Plt Count Lymph % (Auto) [place] % (Auto) Lymph # [place] # Baso # Seg Neutrophils % Seg Neuts % (Manual) Lymphocytes % (Manual) Monocytes % (Manual) Eosinophils % (Manual) Basophils % (Manual) Nucleated RBC % Seg Neutrophils # Seg Neutrophils # Man Lymphocytes # (Manual) Monocytes # (Manual) Eosinophils # (Manual) Basophils # (Manual) PT INR Fibrinogen dRVVT Confirm Interp Factor V Activity POC ABG pH POC ABG pCO2 POC ABG pO2 ABG pO2 ABG HCO3 ABG Base Excess ABG Hemoglobin Oxyhemoglobin Sodium Potassium Chloride Carbon Dioxide BUN Creatinine Glucose POC Glucose 137 H 138 H 133 H Lactic Acid Calcium Phosphorus Magnesium Direct Bilirubin AST ALT Alkaline Phosphatase Lactate Dehydrogenase Troponin T C-Reactive Protein Total Protein Albumin Prealbumin Triglycerides Cholesterol LDL Cholesterol Direct HDL Cholesterol Urine pH Urine WBC (Auto) Urine Creatinine Urine Total Protein Fluid Total Protein Vancomycin Trough Rheumatoid Factor Complement C4 Miscellaneous Test Crossmatch 12/08/16 12/08/16 12/08/16 05:25 05:30 05:30 WBC 23.8 H RBC 2.88 L Hgb 8.1 L Hct 24.3 L MCV MCH MCHC RDW 16.7 H Plt Count Lymph % (Auto) [place] % (Auto) Lymph # [place] # Baso # Seg Neutrophils % Seg Neuts % (Manual) 76.0 H Lymphocytes % (Manual) 9.0 L Monocytes % (Manual) 9.0 H Eosinophils % (Manual) Basophils % (Manual) Nucleated RBC % Seg Neutrophils # Seg Neutrophils # Man 18.1 H Lymphocytes # (Manual) Monocytes # (Manual) 2.1 H Eosinophils # (Manual) Basophils # (Manual) PT INR Fibrinogen dRVVT Confirm Interp Factor V Activity POC ABG pH POC ABG pCO2 POC ABG pO2 ABG pO2 ABG HCO3 ABG Base Excess ABG Hemoglobin Oxyhemoglobin Sodium Potassium Chloride Carbon Dioxide 21 L BUN 76 H Creatinine 1.6 H Glucose 133 H POC Glucose 177 H Lactic Acid Calcium Phosphorus Magnesium Direct Bilirubin AST ALT Alkaline Phosphatase Lactate Dehydrogenase Troponin T C-Reactive Protein Total Protein Albumin Prealbumin Triglycerides Cholesterol LDL Cholesterol Direct HDL Cholesterol Urine pH Urine WBC (Auto) Urine Creatinine Urine Total Protein Fluid Total Protein Vancomycin Trough Rheumatoid Factor Complement C4 Miscellaneous Test Crossmatch 12/08/16 12/08/16 12/09/16 11:45 18:00 00:00 WBC RBC Hgb Hct MCV MCH MCHC RDW Plt Count Lymph % (Auto) [place] % (Auto) Lymph # [place] # Baso # Seg Neutrophils % Seg Neuts % (Manual) Lymphocytes % (Manual) Monocytes % (Manual) Eosinophils % (Manual) Basophils % (Manual) Nucleated RBC % Seg Neutrophils # Seg Neutrophils # Man Lymphocytes # (Manual) Monocytes # (Manual) Eosinophils # (Manual) Basophils # (Manual) PT INR Fibrinogen dRVVT Confirm Interp Factor V Activity POC ABG pH POC ABG pCO2 POC ABG pO2 ABG pO2 ABG HCO3 ABG Base Excess ABG Hemoglobin Oxyhemoglobin Sodium Potassium Chloride Carbon Dioxide BUN Creatinine Glucose POC Glucose 163 H 123 H 137 H Lactic Acid Calcium Phosphorus Magnesium Direct Bilirubin AST ALT Alkaline Phosphatase Lactate Dehydrogenase Troponin T C-Reactive Protein Total Protein Albumin Prealbumin Triglycerides Cholesterol LDL Cholesterol Direct HDL Cholesterol Urine pH Urine WBC (Auto) Urine Creatinine Urine Total Protein Fluid Total Protein Vancomycin Trough Rheumatoid Factor Complement C4 Miscellaneous Test Crossmatch 12/09/16 12/09/16 12/09/16 05:34 06:00 06:00 WBC 15.5 H RBC 2.87 L Hgb 8.0 L Hct 24.2 L MCV MCH MCHC RDW 17.2 H Plt Count Lymph % (Auto) [place] % (Auto) 11.6 H Lymph # [place] # 1.8 H Baso # Seg Neutrophils % 70.8 H Seg Neuts % (Manual) Lymphocytes % (Manual) Monocytes % (Manual) Eosinophils % (Manual) Basophils % (Manual) Nucleated RBC % Seg Neutrophils # 11.0 H Seg Neutrophils # Man Lymphocytes # (Manual) Monocytes # (Manual) Eosinophils # (Manual) Basophils # (Manual) PT INR Fibrinogen dRVVT Confirm Interp Factor V Activity POC ABG pH POC ABG pCO2 POC ABG pO2 ABG pO2 ABG HCO3 ABG Base Excess ABG Hemoglobin Oxyhemoglobin Sodium Potassium Chloride Carbon Dioxide BUN 51 H Creatinine Glucose 117 H POC Glucose 136 H Lactic Acid Calcium Phosphorus Magnesium Direct Bilirubin AST ALT Alkaline Phosphatase Lactate Dehydrogenase Troponin T C-Reactive Protein Total Protein Albumin Prealbumin Triglycerides Cholesterol LDL Cholesterol Direct HDL Cholesterol Urine pH Urine WBC (Auto) Urine Creatinine Urine Total Protein Fluid Total Protein Vancomycin Trough Rheumatoid Factor Complement C4 Miscellaneous Test Crossmatch 12/09/16 12/09/16 12/09/16 12:29 17:52 23:10 WBC RBC Hgb Hct MCV MCH MCHC RDW Plt Count Lymph % (Auto) [place] % (Auto) Lymph # [place] # Baso # Seg Neutrophils % Seg Neuts % (Manual) Lymphocytes % (Manual) Monocytes % (Manual) Eosinophils % (Manual) Basophils % (Manual) Nucleated RBC % Seg Neutrophils # Seg Neutrophils # Man Lymphocytes # (Manual) Monocytes # (Manual) Eosinophils # (Manual) Basophils # (Manual) PT INR Fibrinogen dRVVT Confirm Interp Factor V Activity POC ABG pH POC ABG pCO2 POC ABG pO2 ABG pO2 ABG HCO3 ABG Base Excess ABG Hemoglobin Oxyhemoglobin Sodium Potassium Chloride Carbon Dioxide BUN Creatinine Glucose POC Glucose 139 H 140 H 129 H Lactic Acid Calcium Phosphorus Magnesium Direct Bilirubin AST ALT Alkaline Phosphatase Lactate Dehydrogenase Troponin T C-Reactive Protein Total Protein Albumin Prealbumin Triglycerides Cholesterol LDL Cholesterol Direct HDL Cholesterol Urine pH Urine WBC (Auto) Urine Creatinine Urine Total Protein Fluid Total Protein Vancomycin Trough Rheumatoid Factor Complement C4 Miscellaneous Test Crossmatch 12/10/16 12/10/16 12/10/16 05:00 05:00 06:54 WBC 15.7 H RBC 2.87 L Hgb 8.2 L Hct 24.4 L MCV MCH MCHC RDW 17.2 H Plt Count Lymph % (Auto) [place] % (Auto) 8.3 H Lymph # [place] # 1.3 H Baso # Seg Neutrophils % 72.8 H Seg Neuts % (Manual) Lymphocytes % (Manual) Monocytes % (Manual) Eosinophils % (Manual) Basophils % (Manual) Nucleated RBC % Seg Neutrophils # 11.4 H Seg Neutrophils # Man Lymphocytes # (Manual) Monocytes # (Manual) Eosinophils # (Manual) Basophils # (Manual) PT INR Fibrinogen dRVVT Confirm Interp Factor V Activity POC ABG pH POC ABG pCO2 POC ABG pO2 ABG pO2 ABG HCO3 ABG Base Excess ABG Hemoglobin Oxyhemoglobin Sodium Potassium Chloride Carbon Dioxide BUN 64 H Creatinine 1.4 H Glucose 134 H POC Glucose 154 H Lactic Acid Calcium Phosphorus Magnesium Direct Bilirubin AST ALT Alkaline Phosphatase Lactate Dehydrogenase Troponin T C-Reactive Protein Total Protein Albumin Prealbumin Triglycerides Cholesterol LDL Cholesterol Direct HDL Cholesterol Urine pH Urine WBC (Auto) Urine Creatinine Urine Total Protein Fluid Total Protein Vancomycin Trough Rheumatoid Factor Complement C4 Miscellaneous Test Crossmatch 12/10/16 12/10/16 12/10/16 11:58 17:29 23:52 WBC RBC Hgb Hct MCV MCH MCHC RDW Plt Count Lymph % (Auto) [place] % (Auto) Lymph # [place] # Baso # Seg Neutrophils % Seg Neuts % (Manual) Lymphocytes % (Manual) Monocytes % (Manual) Eosinophils % (Manual) Basophils % (Manual) Nucleated RBC % Seg Neutrophils # Seg Neutrophils # Man Lymphocytes # (Manual) Monocytes # (Manual) Eosinophils # (Manual) Basophils # (Manual) PT INR Fibrinogen dRVVT Confirm Interp Factor V Activity POC ABG pH POC ABG pCO2 POC ABG pO2 ABG pO2 ABG HCO3 ABG Base Excess ABG Hemoglobin Oxyhemoglobin Sodium Potassium Chloride Carbon Dioxide BUN Creatinine Glucose POC Glucose 144 H 163 H 125 H Lactic Acid Calcium Phosphorus Magnesium Direct Bilirubin AST ALT Alkaline Phosphatase Lactate Dehydrogenase Troponin T C-Reactive Protein Total Protein Albumin Prealbumin Triglycerides Cholesterol LDL Cholesterol Direct HDL Cholesterol Urine pH Urine WBC (Auto) Urine Creatinine Urine Total Protein Fluid Total Protein Vancomycin Trough Rheumatoid Factor Complement C4 Miscellaneous Test Crossmatch 12/11/16 12/11/16 12/11/16 05:38 06:30 06:30 WBC 14.4 H RBC 2.76 L Hgb 7.7 L Hct 23.4 L MCV MCH MCHC RDW 17.2 H Plt Count Lymph % (Auto) [place] % (Auto) 8.8 H Lymph # [place] # 1.3 H Baso # Seg Neutrophils % 72.5 H Seg Neuts % (Manual) Lymphocytes % (Manual) Monocytes % (Manual) Eosinophils % (Manual) Basophils % (Manual) Nucleated RBC % Seg Neutrophils # 10.5 H Seg Neutrophils # Man Lymphocytes # (Manual) Monocytes # (Manual) Eosinophils # (Manual) Basophils # (Manual) PT INR Fibrinogen dRVVT Confirm Interp Factor V Activity POC ABG pH POC ABG pCO2 POC ABG pO2 ABG pO2 ABG HCO3 ABG Base Excess ABG Hemoglobin Oxyhemoglobin Sodium Potassium Chloride Carbon Dioxide BUN 43 H Creatinine Glucose 124 H POC Glucose 141 H Lactic Acid Calcium 8.3 L Phosphorus Magnesium 1.60 L Direct Bilirubin AST ALT Alkaline Phosphatase Lactate Dehydrogenase Troponin T C-Reactive Protein Total Protein Albumin Prealbumin Triglycerides Cholesterol LDL Cholesterol Direct HDL Cholesterol Urine pH Urine WBC (Auto) Urine Creatinine Urine Total Protein Fluid Total Protein Vancomycin Trough Rheumatoid Factor Complement C4 Miscellaneous Test Crossmatch 12/11/16 12/11/16 12/11/16 11:15 17:59 23:48 WBC RBC Hgb Hct MCV MCH MCHC RDW Plt Count Lymph % (Auto) [place] % (Auto) Lymph # [place] # Baso # Seg Neutrophils % Seg Neuts % (Manual) Lymphocytes % (Manual) Monocytes % (Manual) Eosinophils % (Manual) Basophils % (Manual) Nucleated RBC % Seg Neutrophils # Seg Neutrophils # Man Lymphocytes # (Manual) Monocytes # (Manual) Eosinophils # (Manual) Basophils # (Manual) PT INR Fibrinogen dRVVT Confirm Interp Factor V Activity POC ABG pH POC ABG pCO2 POC ABG pO2 ABG pO2 ABG HCO3 ABG Base Excess ABG Hemoglobin Oxyhemoglobin Sodium Potassium Chloride Carbon Dioxide BUN Creatinine Glucose POC Glucose 188 H 106 H 119 H Lactic Acid Calcium Phosphorus Magnesium Direct Bilirubin AST ALT Alkaline Phosphatase Lactate Dehydrogenase Troponin T C-Reactive Protein Total Protein Albumin Prealbumin Triglycerides Cholesterol LDL Cholesterol Direct HDL Cholesterol Urine pH Urine WBC (Auto) Urine Creatinine Urine Total Protein Fluid Total Protein Vancomycin Trough Rheumatoid Factor Complement C4 Miscellaneous Test Crossmatch 12/12/16 12/12/16 12/12/16 05:00 06:01 12:20 WBC 16.7 H RBC 2.87 L Hgb 8.0 L Hct 24.2 L MCV MCH MCHC RDW 17.6 H Plt Count Lymph % (Auto) [place] % (Auto) Lymph # [place] # 1.2 H Baso # Seg Neutrophils % 75.3 H Seg Neuts % (Manual) Lymphocytes % (Manual) Monocytes % (Manual) Eosinophils % (Manual) Basophils % (Manual) Nucleated RBC % Seg Neutrophils # 12.6 H Seg Neutrophils # Man Lymphocytes # (Manual) Monocytes # (Manual) Eosinophils # (Manual) Basophils # (Manual) PT INR Fibrinogen dRVVT Confirm Interp Factor V Activity POC ABG pH POC ABG pCO2 POC ABG pO2 ABG pO2 ABG HCO3 ABG Base Excess ABG Hemoglobin Oxyhemoglobin Sodium Potassium Chloride Carbon Dioxide BUN Creatinine Glucose POC Glucose 134 H 149 H Lactic Acid Calcium Phosphorus Magnesium Direct Bilirubin AST ALT Alkaline Phosphatase Lactate Dehydrogenase Troponin T C-Reactive Protein Total Protein Albumin Prealbumin Triglycerides Cholesterol LDL Cholesterol Direct HDL Cholesterol Urine pH Urine WBC (Auto) Urine Creatinine Urine Total Protein Fluid Total Protein Vancomycin Trough Rheumatoid Factor Complement C4 Miscellaneous Test Crossmatch 12/12/16 12/12/16 12/12/16 17:38 23:01 Unknown WBC RBC Hgb Hct MCV MCH MCHC RDW Plt Count Lymph % (Auto) [place] % (Auto) Lymph # [place] # Baso # Seg Neutrophils % Seg Neuts % (Manual) Lymphocytes % (Manual) Monocytes % (Manual) Eosinophils % (Manual) Basophils % (Manual) Nucleated RBC % Seg Neutrophils # Seg Neutrophils # Man Lymphocytes # (Manual) Monocytes # (Manual) Eosinophils # (Manual) Basophils # (Manual) PT INR Fibrinogen dRVVT Confirm Interp Factor V Activity POC ABG pH POC ABG pCO2 POC ABG pO2 ABG pO2 ABG HCO3 ABG Base Excess ABG Hemoglobin Oxyhemoglobin Sodium Potassium Chloride Carbon Dioxide BUN 60 H Creatinine 1.3 H Glucose 126 H POC Glucose 127 H 144 H Lactic Acid Calcium Phosphorus Magnesium Direct Bilirubin AST ALT Alkaline Phosphatase Lactate Dehydrogenase Troponin T C-Reactive Protein Total Protein Albumin Prealbumin Triglycerides Cholesterol LDL Cholesterol Direct HDL Cholesterol Urine pH Urine WBC (Auto) Urine Creatinine Urine Total Protein Fluid Total Protein Vancomycin Trough Rheumatoid Factor Complement C4 Miscellaneous Test Crossmatch 12/13/16 12/13/16 12/13/16 04:00 04:00 05:19 WBC 18.7 H RBC 2.89 L Hgb 8.3 L Hct 24.6 L MCV MCH MCHC RDW 17.5 H Plt Count Lymph % (Auto) [place] % (Auto) Lymph # [place] # 1.3 H Baso # Seg Neutrophils % 71.5 H Seg Neuts % (Manual) Lymphocytes % (Manual) Monocytes % (Manual) Eosinophils % (Manual) Basophils % (Manual) Nucleated RBC % Seg Neutrophils # 13.4 H Seg Neutrophils # Man Lymphocytes # (Manual) Monocytes # (Manual) Eosinophils # (Manual) Basophils # (Manual) PT INR Fibrinogen dRVVT Confirm Interp Factor V Activity POC ABG pH POC ABG pCO2 POC ABG pO2 ABG pO2 ABG HCO3 ABG Base Excess ABG Hemoglobin Oxyhemoglobin Sodium Potassium Chloride Carbon Dioxide BUN 73 H Creatinine 1.5 H Glucose 141 H POC Glucose 171 H Lactic Acid Calcium Phosphorus Magnesium Direct Bilirubin AST ALT Alkaline Phosphatase Lactate Dehydrogenase Troponin T C-Reactive Protein Total Protein Albumin Prealbumin Triglycerides Cholesterol LDL Cholesterol Direct HDL Cholesterol Urine pH Urine WBC (Auto) Urine Creatinine Urine Total Protein Fluid Total Protein Vancomycin Trough Rheumatoid Factor Complement C4 Miscellaneous Test Crossmatch 12/13/16 12/13/16 12/14/16 12:28 16:48 00:01 WBC RBC Hgb Hct MCV MCH MCHC RDW Plt Count Lymph % (Auto) [place] % (Auto) Lymph # [place] # Baso # Seg Neutrophils % Seg Neuts % (Manual) Lymphocytes % (Manual) Monocytes % (Manual) Eosinophils % (Manual) Basophils % (Manual) Nucleated RBC % Seg Neutrophils # Seg Neutrophils # Man Lymphocytes # (Manual) Monocytes # (Manual) Eosinophils # (Manual) Basophils # (Manual) PT INR Fibrinogen dRVVT Confirm Interp Factor V Activity POC ABG pH POC ABG pCO2 POC ABG pO2 ABG pO2 ABG HCO3 ABG Base Excess ABG Hemoglobin Oxyhemoglobin Sodium Potassium Chloride Carbon Dioxide BUN Creatinine Glucose POC Glucose 206 H 173 H 139 H Lactic Acid Calcium Phosphorus Magnesium Direct Bilirubin AST ALT Alkaline Phosphatase Lactate Dehydrogenase Troponin T C-Reactive Protein Total Protein Albumin Prealbumin Triglycerides Cholesterol LDL Cholesterol Direct HDL Cholesterol Urine pH Urine WBC (Auto) Urine Creatinine Urine Total Protein Fluid Total Protein Vancomycin Trough Rheumatoid Factor Complement C4 Miscellaneous Test Crossmatch 12/14/16 12/14/16 12/14/16 05:16 06:10 11:17 WBC RBC Hgb Hct MCV MCH MCHC RDW Plt Count Lymph % (Auto) [place] % (Auto) Lymph # [place] # Baso # Seg Neutrophils % Seg Neuts % (Manual) Lymphocytes % (Manual) Monocytes % (Manual) Eosinophils % (Manual) Basophils % (Manual) Nucleated RBC % Seg Neutrophils # Seg Neutrophils # Man Lymphocytes # (Manual) Monocytes # (Manual) Eosinophils # (Manual) Basophils # (Manual) PT INR Fibrinogen dRVVT Confirm Interp Factor V Activity POC ABG pH POC ABG pCO2 POC ABG pO2 ABG pO2 ABG HCO3 ABG Base Excess ABG Hemoglobin Oxyhemoglobin Sodium Potassium Chloride Carbon Dioxide BUN 57 H Creatinine 1.4 H Glucose 135 H POC Glucose 158 H 137 H Lactic Acid Calcium Phosphorus Magnesium Direct Bilirubin AST ALT Alkaline Phosphatase Lactate Dehydrogenase Troponin T C-Reactive Protein Total Protein Albumin Prealbumin Triglycerides Cholesterol LDL Cholesterol Direct HDL Cholesterol Urine pH Urine WBC (Auto) Urine Creatinine Urine Total Protein Fluid Total Protein Vancomycin Trough Rheumatoid Factor Complement C4 Miscellaneous Test Crossmatch 12/14/16 12/14/16 12/15/16 17:52 23:27 04:00 WBC RBC Hgb Hct MCV MCH MCHC RDW Plt Count Lymph % (Auto) [place] % (Auto) Lymph # [place] # Baso # Seg Neutrophils % Seg Neuts % (Manual) Lymphocytes % (Manual) Monocytes % (Manual) Eosinophils % (Manual) Basophils % (Manual) Nucleated RBC % Seg Neutrophils # Seg Neutrophils # Man Lymphocytes # (Manual) Monocytes # (Manual) Eosinophils # (Manual) Basophils # (Manual) PT INR Fibrinogen dRVVT Confirm Interp Factor V Activity POC ABG pH POC ABG pCO2 POC ABG pO2 ABG pO2 ABG HCO3 ABG Base Excess ABG Hemoglobin Oxyhemoglobin Sodium Potassium Chloride 97.9 L Carbon Dioxide BUN 75 H Creatinine 1.6 H Glucose 122 H POC Glucose 149 H 163 H Lactic Acid Calcium Phosphorus 5.20 H Magnesium Direct Bilirubin AST ALT Alkaline Phosphatase Lactate Dehydrogenase Troponin T C-Reactive Protein Total Protein Albumin Prealbumin Triglycerides Cholesterol LDL Cholesterol Direct HDL Cholesterol Urine pH Urine WBC (Auto) Urine Creatinine Urine Total Protein Fluid Total Protein Vancomycin Trough Rheumatoid Factor Complement C4 Miscellaneous Test Crossmatch 12/15/16 12/15/16 12/15/16 05:50 11:24 17:01 WBC RBC Hgb Hct MCV MCH MCHC RDW Plt Count Lymph % (Auto) [place] % (Auto) Lymph # [place] # Baso # Seg Neutrophils % Seg Neuts % (Manual) Lymphocytes % (Manual) Monocytes % (Manual) Eosinophils % (Manual) Basophils % (Manual) Nucleated RBC % Seg Neutrophils # Seg Neutrophils # Man Lymphocytes # (Manual) Monocytes # (Manual) Eosinophils # (Manual) Basophils # (Manual) PT INR Fibrinogen dRVVT Confirm Interp Factor V Activity POC ABG pH POC ABG pCO2 POC ABG pO2 ABG pO2 ABG HCO3 ABG Base Excess ABG Hemoglobin Oxyhemoglobin Sodium Potassium Chloride Carbon Dioxide BUN Creatinine Glucose POC Glucose 150 H 146 H 167 H Lactic Acid Calcium Phosphorus Magnesium Direct Bilirubin AST ALT Alkaline Phosphatase Lactate Dehydrogenase Troponin T C-Reactive Protein Total Protein Albumin Prealbumin Triglycerides Cholesterol LDL Cholesterol Direct HDL Cholesterol Urine pH Urine WBC (Auto) Urine Creatinine Urine Total Protein Fluid Total Protein Vancomycin Trough Rheumatoid Factor Complement C4 Miscellaneous Test Crossmatch 12/15/16 12/16/16 12/16/16 23:34 05:25 11:24 WBC RBC Hgb Hct MCV MCH MCHC RDW Plt Count Lymph % (Auto) [place] % (Auto) Lymph # [place] # Baso # Seg Neutrophils % Seg Neuts % (Manual) Lymphocytes % (Manual) Monocytes % (Manual) Eosinophils % (Manual) Basophils % (Manual) Nucleated RBC % Seg Neutrophils # Seg Neutrophils # Man Lymphocytes # (Manual) Monocytes # (Manual) Eosinophils # (Manual) Basophils # (Manual) PT INR Fibrinogen dRVVT Confirm Interp Factor V Activity POC ABG pH POC ABG pCO2 POC ABG pO2 ABG pO2 ABG HCO3 ABG Base Excess ABG Hemoglobin Oxyhemoglobin Sodium Potassium Chloride Carbon Dioxide BUN Creatinine Glucose POC Glucose 127 H 139 H 165 H Lactic Acid Calcium Phosphorus Magnesium Direct Bilirubin AST ALT Alkaline Phosphatase Lactate Dehydrogenase Troponin T C-Reactive Protein Total Protein Albumin Prealbumin Triglycerides Cholesterol LDL Cholesterol Direct HDL Cholesterol Urine pH Urine WBC (Auto) Urine Creatinine Urine Total Protein Fluid Total Protein Vancomycin Trough Rheumatoid Factor Complement C4 Miscellaneous Test Crossmatch 12/16/16 12/16/16 12/16/16 15:30 16:25 17:31 WBC 17.8 H RBC 2.38 L Hgb 6.4 L Hct 20.3 L MCV MCH 27 L MCHC RDW 17.4 H Plt Count Lymph % (Auto) [place] % (Auto) Lymph # [place] # Baso # Seg Neutrophils % Seg Neuts % (Manual) Lymphocytes % (Manual) Monocytes % (Manual) 10.0 H Eosinophils % (Manual) Basophils % (Manual) Nucleated RBC % Seg Neutrophils # Seg Neutrophils # Man 8.5 H Lymphocytes # (Manual) Monocytes # (Manual) 1.8 H Eosinophils # (Manual) Basophils # (Manual) PT INR Fibrinogen dRVVT Confirm Interp Factor V Activity POC ABG pH POC ABG pCO2 POC ABG pO2 ABG pO2 ABG HCO3 ABG Base Excess ABG Hemoglobin Oxyhemoglobin Sodium Potassium Chloride Carbon Dioxide BUN Creatinine Glucose POC Glucose 176 H Lactic Acid Calcium Phosphorus Magnesium Direct Bilirubin AST ALT Alkaline Phosphatase Lactate Dehydrogenase Troponin T C-Reactive Protein Total Protein Albumin Prealbumin Triglycerides Cholesterol LDL Cholesterol Direct HDL Cholesterol Urine pH Urine WBC (Auto) Urine Creatinine Urine Total Protein Fluid Total Protein Vancomycin Trough Rheumatoid Factor Complement C4 Miscellaneous Test Crossmatch See Detail 12/17/16 12/17/1612/17/17 00:14 04:00 05:00 WBC 20.0 H RBC 2.99 L Hgb 8.5 L Hct 25.7 L MCV MCH MCHC RDW 17.2 H Plt Count Lymph % (Auto) [place] % (Auto) Lymph # [place] # Baso # Seg Neutrophils % Seg Neuts % (Manual) Lymphocytes % (Manual) Monocytes % (Manual) Eosinophils % (Manual) Basophils % (Manual) Nucleated RBC % Seg Neutrophils # Seg Neutrophils # Man Lymphocytes # (Manual) Monocytes # (Manual) Eosinophils # (Manual) Basophils # (Manual) PT INR Fibrinogen dRVVT Confirm Interp Factor V Activity POC ABG pH POC ABG pCO2 POC ABG pO2 ABG pO2 ABG HCO3 ABG Base Excess ABG Hemoglobin Oxyhemoglobin Sodium Potassium Chloride 97.7 L Carbon Dioxide BUN 73 H Creatinine 1.7 H Glucose 136 H POC Glucose 148 H Lactic Acid Calcium Phosphorus 2.20 L Magnesium 2.70 H Direct Bilirubin AST ALT Alkaline Phosphatase Lactate Dehydrogenase Troponin T C-Reactive Protein Total Protein Albumin Prealbumin Triglycerides Cholesterol LDL Cholesterol Direct HDL Cholesterol Urine pH Urine WBC (Auto) Urine Creatinine Urine Total Protein Fluid Total Protein Vancomycin Trough Rheumatoid Factor Complement C4 Miscellaneous Test Crossmatch 12/17/16 12/17/16 12/17/16 05:39 12:50 16:32 WBC RBC Hgb Hct MCV MCH MCHC RDW Plt Count Lymph % (Auto) [place] % (Auto) Lymph # [place] # Baso # Seg Neutrophils % Seg Neuts % (Manual) Lymphocytes % (Manual) Monocytes % (Manual) Eosinophils % (Manual) Basophils % (Manual) Nucleated RBC % Seg Neutrophils # Seg Neutrophils # Man Lymphocytes # (Manual) Monocytes # (Manual) Eosinophils # (Manual) Basophils # (Manual) PT INR Fibrinogen dRVVT Confirm Interp Factor V Activity POC ABG pH POC ABG pCO2 POC ABG pO2 ABG pO2 ABG HCO3 ABG Base Excess ABG Hemoglobin Oxyhemoglobin Sodium Potassium Chloride Carbon Dioxide BUN Creatinine Glucose POC Glucose 162 H 146 H 169 H Lactic Acid Calcium Phosphorus Magnesium Direct Bilirubin AST ALT Alkaline Phosphatase Lactate Dehydrogenase Troponin T C-Reactive Protein Total Protein Albumin Prealbumin Triglycerides Cholesterol LDL Cholesterol Direct HDL Cholesterol Urine pH Urine WBC (Auto) Urine Creatinine Urine Total Protein Fluid Total Protein Vancomycin Trough Rheumatoid Factor Complement C4 Miscellaneous Test Crossmatch 12/17/16 12/18/16 12/18/16 23:57 05:00 05:32 WBC RBC Hgb Hct MCV MCH MCHC RDW Plt Count Lymph % (Auto) [place] % (Auto) Lymph # [place] # Baso # Seg Neutrophils % Seg Neuts % (Manual) Lymphocytes % (Manual) Monocytes % (Manual) Eosinophils % (Manual) Basophils % (Manual) Nucleated RBC % Seg Neutrophils # Seg Neutrophils # Man Lymphocytes # (Manual) Monocytes # (Manual) Eosinophils # (Manual) Basophils # (Manual) PT INR Fibrinogen dRVVT Confirm Interp Factor V Activity POC ABG pH POC ABG pCO2 POC ABG pO2 ABG pO2 ABG HCO3 ABG Base Excess ABG Hemoglobin Oxyhemoglobin Sodium Potassium Chloride 97.0 L Carbon Dioxide BUN 63 H Creatinine 1.4 H Glucose 174 H POC Glucose 145 H 201 H Lactic Acid Calcium Phosphorus 1.70 L D Magnesium Direct Bilirubin AST ALT Alkaline Phosphatase 257 H Lactate Dehydrogenase Troponin T C-Reactive Protein Total Protein 5.9 L Albumin 1.8 L Prealbumin Triglycerides Cholesterol LDL Cholesterol Direct HDL Cholesterol Urine pH Urine WBC (Auto) Urine Creatinine Urine Total Protein Fluid Total Protein Vancomycin Trough Rheumatoid Factor Complement C4 Miscellaneous Test Crossmatch 12/18/16 12/18/16 12/18/16 11:43 16:52 23:52 WBC RBC Hgb Hct MCV MCH MCHC RDW Plt Count Lymph % (Auto) [place] % (Auto) Lymph # [place] # Baso # Seg Neutrophils % Seg Neuts % (Manual) Lymphocytes % (Manual) Monocytes % (Manual) Eosinophils % (Manual) Basophils % (Manual) Nucleated RBC % Seg Neutrophils # Seg Neutrophils # Man Lymphocytes # (Manual) Monocytes # (Manual) Eosinophils # (Manual) Basophils # (Manual) PT INR Fibrinogen dRVVT Confirm Interp Factor V Activity POC ABG pH POC ABG pCO2 POC ABG pO2 ABG pO2 ABG HCO3 ABG Base Excess ABG Hemoglobin Oxyhemoglobin Sodium Potassium Chloride Carbon Dioxide BUN Creatinine Glucose POC Glucose 177 H 110 H 162 H Lactic Acid Calcium Phosphorus Magnesium Direct Bilirubin AST ALT Alkaline Phosphatase Lactate Dehydrogenase Troponin T C-Reactive Protein Total Protein Albumin Prealbumin Triglycerides Cholesterol LDL Cholesterol Direct HDL Cholesterol Urine pH Urine WBC (Auto) Urine Creatinine Urine Total Protein Fluid Total Protein Vancomycin Trough Rheumatoid Factor Complement C4 Miscellaneous Test Crossmatch 12/19/16 12/19/16 12/19/16 05:02 05:24 09:30 WBC 20.1 H RBC 2.73 L Hgb 7.6 L Hct 23.6 L MCV MCH MCHC RDW 17.6 H Plt Count Lymph % (Auto) [place] % (Auto) Lymph # [place] # Baso # Seg Neutrophils % Seg Neuts % (Manual) Lymphocytes % (Manual) 13.0 L Monocytes % (Manual) Eosinophils % (Manual) Basophils % (Manual) Nucleated RBC % 1.0 H Seg Neutrophils # Seg Neutrophils # Man 12.9 H Lymphocytes # (Manual) Monocytes # (Manual) 1.4 H Eosinophils # (Manual) Basophils # (Manual) 0.2 H PT INR Fibrinogen dRVVT Confirm Interp Factor V Activity POC ABG pH POC ABG pCO2 POC ABG pO2 ABG pO2 ABG HCO3 ABG Base Excess ABG Hemoglobin Oxyhemoglobin Sodium Potassium Chloride 97.8 L Carbon Dioxide BUN 84 H Creatinine 1.6 H Glucose 133 H POC Glucose 134 H Lactic Acid Calcium Phosphorus Magnesium Direct Bilirubin AST ALT Alkaline Phosphatase Lactate Dehydrogenase Troponin T C-Reactive Protein Total Protein Albumin Prealbumin Triglycerides Cholesterol LDL Cholesterol Direct HDL Cholesterol Urine pH Urine WBC (Auto) Urine Creatinine Urine Total Protein Fluid Total Protein Vancomycin Trough Rheumatoid Factor Complement C4 Miscellaneous Test Crossmatch 12/19/16 12/19/16 12/19/16 09:36 11:12 18:29 WBC RBC Hgb Hct MCV MCH MCHC RDW Plt Count Lymph % (Auto) [place] % (Auto) Lymph # [place] # Baso # Seg Neutrophils % Seg Neuts % (Manual) Lymphocytes % (Manual) Monocytes % (Manual) Eosinophils % (Manual) Basophils % (Manual) Nucleated RBC % Seg Neutrophils # Seg Neutrophils # Man Lymphocytes # (Manual) Monocytes # (Manual) Eosinophils # (Manual) Basophils # (Manual) PT INR Fibrinogen dRVVT Confirm Interp Factor V Activity POC ABG pH 7.503 H POC ABG pCO2 30.1 L POC ABG pO2 ABG pO2 ABG HCO3 ABG Base Excess ABG Hemoglobin Oxyhemoglobin Sodium Potassium Chloride Carbon Dioxide BUN Creatinine Glucose POC Glucose 138 H 156 H Lactic Acid Calcium Phosphorus Magnesium Direct Bilirubin AST ALT Alkaline Phosphatase Lactate Dehydrogenase Troponin T C-Reactive Protein Total Protein Albumin Prealbumin Triglycerides Cholesterol LDL Cholesterol Direct HDL Cholesterol Urine pH Urine WBC (Auto) Urine Creatinine Urine Total Protein Fluid Total Protein Vancomycin Trough Rheumatoid Factor Complement C4 Miscellaneous Test Crossmatch 12/20/16 12/20/16 12/20/16 00:03 06:17 07:07 WBC RBC Hgb Hct MCV MCH MCHC RDW Plt Count Lymph % (Auto) [place] % (Auto) Lymph # [place] # Baso # Seg Neutrophils % Seg Neuts % (Manual) Lymphocytes % (Manual) Monocytes % (Manual) Eosinophils % (Manual) Basophils % (Manual) Nucleated RBC % Seg Neutrophils # Seg Neutrophils # Man Lymphocytes # (Manual) Monocytes # (Manual) Eosinophils # (Manual) Basophils # (Manual) PT INR Fibrinogen dRVVT Confirm Interp Factor V Activity POC ABG pH POC ABG pCO2 POC ABG pO2 ABG pO2 ABG HCO3 ABG Base Excess ABG Hemoglobin Oxyhemoglobin Sodium Potassium Chloride 97.1 L Carbon Dioxide 20 L BUN 97 H Creatinine 1.8 H Glucose 153 H POC Glucose 152 H 175 H Lactic Acid Calcium Phosphorus Magnesium Direct Bilirubin AST ALT Alkaline Phosphatase Lactate Dehydrogenase Troponin T C-Reactive Protein Total Protein Albumin Prealbumin Triglycerides Cholesterol LDL Cholesterol Direct HDL Cholesterol Urine pH Urine WBC (Auto) Urine Creatinine Urine Total Protein Fluid Total Protein Vancomycin Trough Rheumatoid Factor Complement C4 Miscellaneous Test Crossmatch 12/20/16 12/20/16 12/20/16 12:00 17:42 23:53 WBC RBC Hgb Hct MCV MCH MCHC RDW Plt Count Lymph % (Auto) [place] % (Auto) Lymph # [place] # Baso # Seg Neutrophils % Seg Neuts % (Manual) Lymphocytes % (Manual) Monocytes % (Manual) Eosinophils % (Manual) Basophils % (Manual) Nucleated RBC % Seg Neutrophils # Seg Neutrophils # Man Lymphocytes # (Manual) Monocytes # (Manual) Eosinophils # (Manual) Basophils # (Manual) PT INR Fibrinogen dRVVT Confirm Interp Factor V Activity POC ABG pH POC ABG pCO2 POC ABG pO2 ABG pO2 ABG HCO3 ABG Base Excess ABG Hemoglobin Oxyhemoglobin Sodium Potassium Chloride Carbon Dioxide BUN Creatinine Glucose POC Glucose 141 H 156 H 132 H Lactic Acid Calcium Phosphorus Magnesium Direct Bilirubin AST ALT Alkaline Phosphatase Lactate Dehydrogenase Troponin T C-Reactive Protein Total Protein Albumin Prealbumin Triglycerides Cholesterol LDL Cholesterol Direct HDL Cholesterol Urine pH Urine WBC (Auto) Urine Creatinine Urine Total Protein Fluid Total Protein Vancomycin Trough Rheumatoid Factor Complement C4 Miscellaneous Test Crossmatch 12/21/16 12/21/16 12/21/16 05:49 08:50 12:19 WBC RBC Hgb Hct MCV MCH MCHC RDW Plt Count Lymph % (Auto) [place] % (Auto) Lymph # [place] # Baso # Seg Neutrophils % Seg Neuts % (Manual) Lymphocytes % (Manual) Monocytes % (Manual) Eosinophils % (Manual) Basophils % (Manual) Nucleated RBC % Seg Neutrophils # Seg Neutrophils # Man Lymphocytes # (Manual) Monocytes # (Manual) Eosinophils # (Manual) Basophils # (Manual) PT INR Fibrinogen dRVVT Confirm Interp Factor V Activity POC ABG pH POC ABG pCO2 POC ABG pO2 ABG pO2 ABG HCO3 ABG Base Excess ABG Hemoglobin Oxyhemoglobin Sodium Potassium 5.2 H D Chloride Carbon Dioxide BUN 63 H Creatinine Glucose 122 H POC Glucose 132 H 136 H Lactic Acid Calcium 8.3 L Phosphorus Magnesium Direct Bilirubin AST ALT Alkaline Phosphatase Lactate Dehydrogenase Troponin T C-Reactive Protein Total Protein Albumin Prealbumin Triglycerides Cholesterol LDL Cholesterol Direct HDL Cholesterol Urine pH Urine WBC (Auto) Urine Creatinine Urine Total Protein Fluid Total Protein Vancomycin Trough Rheumatoid Factor Complement C4 Miscellaneous Test Crossmatch 12/21/16 12/21/16 12/22/16 17:22 23:58 05:49 WBC RBC Hgb Hct MCV MCH MCHC RDW Plt Count Lymph % (Auto) [place] % (Auto) Lymph # [place] # Baso # Seg Neutrophils % Seg Neuts % (Manual) Lymphocytes % (Manual) Monocytes % (Manual) Eosinophils % (Manual) Basophils % (Manual) Nucleated RBC % Seg Neutrophils # Seg Neutrophils # Man Lymphocytes # (Manual) Monocytes # (Manual) Eosinophils # (Manual) Basophils # (Manual) PT INR Fibrinogen dRVVT Confirm Interp Factor V Activity POC ABG pH POC ABG pCO2 POC ABG pO2 ABG pO2 ABG HCO3 ABG Base Excess ABG Hemoglobin Oxyhemoglobin Sodium Potassium Chloride Carbon Dioxide BUN Creatinine Glucose POC Glucose 135 H 149 H 140 H Lactic Acid Calcium Phosphorus Magnesium Direct Bilirubin AST ALT Alkaline Phosphatase Lactate Dehydrogenase Troponin T C-Reactive Protein Total Protein Albumin Prealbumin Triglycerides Cholesterol LDL Cholesterol Direct HDL Cholesterol Urine pH Urine WBC (Auto) Urine Creatinine Urine Total Protein Fluid Total Protein Vancomycin Trough Rheumatoid Factor Complement C4 Miscellaneous Test Crossmatch 12/22/16 12/22/16 12/22/16 06:10 11:17 17:31 WBC RBC Hgb Hct MCV MCH MCHC RDW Plt Count Lymph % (Auto) [place] % (Auto) Lymph # [place] # Baso # Seg Neutrophils % Seg Neuts % (Manual) Lymphocytes % (Manual) Monocytes % (Manual) Eosinophils % (Manual) Basophils % (Manual) Nucleated RBC % Seg Neutrophils # Seg Neutrophils # Man Lymphocytes # (Manual) Monocytes # (Manual) Eosinophils # (Manual) Basophils # (Manual) PT INR Fibrinogen dRVVT Confirm Interp Factor V Activity POC ABG pH POC ABG pCO2 POC ABG pO2 ABG pO2 ABG HCO3 ABG Base Excess ABG Hemoglobin Oxyhemoglobin Sodium Potassium Chloride Carbon Dioxide BUN 76 H Creatinine 1.5 H Glucose 241 H POC Glucose 193 H 148 H Lactic Acid Calcium Phosphorus Magnesium Direct Bilirubin AST ALT Alkaline Phosphatase Lactate Dehydrogenase Troponin T C-Reactive Protein Total Protein Albumin Prealbumin Triglycerides Cholesterol LDL Cholesterol Direct HDL Cholesterol Urine pH Urine WBC (Auto) Urine Creatinine Urine Total Protein Fluid Total Protein Vancomycin Trough Rheumatoid Factor Complement C4 Miscellaneous Test Crossmatch 12/22/16 12/23/16 12/23/16 23:58 05:00 05:26 WBC RBC Hgb Hct MCV MCH MCHC RDW Plt Count Lymph % (Auto) [place] % (Auto) Lymph # [place] # Baso # Seg Neutrophils % Seg Neuts % (Manual) Lymphocytes % (Manual) Monocytes % (Manual) Eosinophils % (Manual) Basophils % (Manual) Nucleated RBC % Seg Neutrophils # Seg Neutrophils # Man Lymphocytes # (Manual) Monocytes # (Manual) Eosinophils # (Manual) Basophils # (Manual) PT INR Fibrinogen dRVVT Confirm Interp Factor V Activity POC ABG pH POC ABG pCO2 POC ABG pO2 ABG pO2 ABG HCO3 ABG Base Excess ABG Hemoglobin Oxyhemoglobin Sodium Potassium Chloride Carbon Dioxide BUN 49 H Creatinine Glucose 143 H POC Glucose 165 H 154 H Lactic Acid Calcium 8.2 L Phosphorus Magnesium 1.60 L Direct Bilirubin AST ALT Alkaline Phosphatase Lactate Dehydrogenase Troponin T C-Reactive Protein Total Protein Albumin Prealbumin Triglycerides Cholesterol LDL Cholesterol Direct HDL Cholesterol Urine pH Urine WBC (Auto) Urine Creatinine Urine Total Protein Fluid Total Protein Vancomycin Trough Rheumatoid Factor Complement C4 Miscellaneous Test Crossmatch 12/23/16 12/23/16 12/24/16 12:35 17:01 00:01 WBC RBC Hgb Hct MCV MCH MCHC RDW Plt Count Lymph % (Auto) [place] % (Auto) Lymph # [place] # Baso # Seg Neutrophils % Seg Neuts % (Manual) Lymphocytes % (Manual) Monocytes % (Manual) Eosinophils % (Manual) Basophils % (Manual) Nucleated RBC % Seg Neutrophils # Seg Neutrophils # Man Lymphocytes # (Manual) Monocytes # (Manual) Eosinophils # (Manual) Basophils # (Manual) PT INR Fibrinogen dRVVT Confirm Interp Factor V Activity POC ABG pH POC ABG pCO2 POC ABG pO2 ABG pO2 ABG HCO3 ABG Base Excess ABG Hemoglobin Oxyhemoglobin Sodium Potassium Chloride Carbon Dioxide BUN Creatinine Glucose POC Glucose 164 H 149 H 135 H Lactic Acid Calcium Phosphorus Magnesium Direct Bilirubin AST ALT Alkaline Phosphatase Lactate Dehydrogenase Troponin T C-Reactive Protein Total Protein Albumin Prealbumin Triglycerides Cholesterol LDL Cholesterol Direct HDL Cholesterol Urine pH Urine WBC (Auto) Urine Creatinine Urine Total Protein Fluid Total Protein Vancomycin Trough Rheumatoid Factor Complement C4 Miscellaneous Test Crossmatch 12/24/16 12/24/16 12/24/16 05:41 07:01 11:38 WBC RBC Hgb Hct MCV MCH MCHC RDW Plt Count Lymph % (Auto) [place] % (Auto) Lymph # [place] # Baso # Seg Neutrophils % Seg Neuts % (Manual) Lymphocytes % (Manual) Monocytes % (Manual) Eosinophils % (Manual) Basophils % (Manual) Nucleated RBC % Seg Neutrophils # Seg Neutrophils # Man Lymphocytes # (Manual) Monocytes # (Manual) Eosinophils # (Manual) Basophils # (Manual) PT INR Fibrinogen dRVVT Confirm Interp Factor V Activity POC ABG pH POC ABG pCO2 POC ABG pO2 ABG pO2 ABG HCO3 ABG Base Excess ABG Hemoglobin Oxyhemoglobin Sodium Potassium Chloride Carbon Dioxide BUN 72 H Creatinine 1.3 H Glucose 130 H POC Glucose 132 H 156 H Lactic Acid Calcium 8.2 L Phosphorus Magnesium Direct Bilirubin AST ALT Alkaline Phosphatase Lactate Dehydrogenase Troponin T C-Reactive Protein Total Protein Albumin Prealbumin Triglycerides Cholesterol LDL Cholesterol Direct HDL Cholesterol Urine pH Urine WBC (Auto) Urine Creatinine Urine Total Protein Fluid Total Protein Vancomycin Trough Rheumatoid Factor Complement C4 Miscellaneous Test Crossmatch 12/24/16 12/25/16 12/25/16 17:53 00:23 05:45 WBC RBC Hgb Hct MCV MCH MCHC RDW Plt Count Lymph % (Auto) [place] % (Auto) Lymph # [place] # Baso # Seg Neutrophils % Seg Neuts % (Manual) Lymphocytes % (Manual) Monocytes % (Manual) Eosinophils % (Manual) Basophils % (Manual) Nucleated RBC % Seg Neutrophils # Seg Neutrophils # Man Lymphocytes # (Manual) Monocytes # (Manual) Eosinophils # (Manual) Basophils # (Manual) PT INR Fibrinogen dRVVT Confirm Interp Factor V Activity POC ABG pH POC ABG pCO2 POC ABG pO2 ABG pO2 ABG HCO3 ABG Base Excess ABG Hemoglobin Oxyhemoglobin Sodium 146 H Potassium Chloride Carbon Dioxide BUN 51 H Creatinine Glucose 109 H POC Glucose 169 H 117 H Lactic Acid Calcium Phosphorus Magnesium Direct Bilirubin AST ALT Alkaline Phosphatase Lactate Dehydrogenase Troponin T C-Reactive Protein Total Protein Albumin Prealbumin Triglycerides Cholesterol LDL Cholesterol Direct HDL Cholesterol Urine pH Urine WBC (Auto) Urine Creatinine Urine Total Protein Fluid Total Protein Vancomycin Trough Rheumatoid Factor Complement C4 Miscellaneous Test Crossmatch 12/25/16 12/25/16 12/25/16 06:43 11:29 17:14 WBC RBC Hgb Hct MCV MCH MCHC RDW Plt Count Lymph % (Auto) [place] % (Auto) Lymph # [place] # Baso # Seg Neutrophils % Seg Neuts % (Manual) Lymphocytes % (Manual) Monocytes % (Manual) Eosinophils % (Manual) Basophils % (Manual) Nucleated RBC % Seg Neutrophils # Seg Neutrophils # Man Lymphocytes # (Manual) Monocytes # (Manual) Eosinophils # (Manual) Basophils # (Manual) PT INR Fibrinogen dRVVT Confirm Interp Factor V Activity POC ABG pH POC ABG pCO2 POC ABG pO2 ABG pO2 ABG HCO3 ABG Base Excess ABG Hemoglobin Oxyhemoglobin Sodium Potassium Chloride Carbon Dioxide BUN Creatinine Glucose POC Glucose 117 H 128 H 120 H Lactic Acid Calcium Phosphorus Magnesium Direct Bilirubin AST ALT Alkaline Phosphatase Lactate Dehydrogenase Troponin T C-Reactive Protein Total Protein Albumin Prealbumin Triglycerides Cholesterol LDL Cholesterol Direct HDL Cholesterol Urine pH Urine WBC (Auto) Urine Creatinine Urine Total Protein Fluid Total Protein Vancomycin Trough Rheumatoid Factor Complement C4 Miscellaneous Test Crossmatch 12/25/16 12/26/16 12/26/16 23:54 05:40 05:50 WBC 16.2 H RBC 2.32 L Hgb 6.2 L Hct 20.1 L MCV MCH 27 L MCHC RDW 18.6 H Plt Count Lymph % (Auto) [place] % (Auto) Lymph # [place] # Baso # Seg Neutrophils % Seg Neuts % (Manual) Lymphocytes % (Manual) Monocytes % (Manual) Eosinophils % (Manual) Basophils % (Manual) Nucleated RBC % Seg Neutrophils # Seg Neutrophils # Man Lymphocytes # (Manual) Monocytes # (Manual) Eosinophils # (Manual) Basophils # (Manual) PT INR Fibrinogen dRVVT Confirm Interp Factor V Activity POC ABG pH POC ABG pCO2 POC ABG pO2 ABG pO2 ABG HCO3 ABG Base Excess ABG Hemoglobin Oxyhemoglobin Sodium Potassium Chloride Carbon Dioxide BUN Creatinine Glucose POC Glucose 126 H 132 H Lactic Acid Calcium Phosphorus Magnesium Direct Bilirubin AST ALT Alkaline Phosphatase Lactate Dehydrogenase Troponin T C-Reactive Protein Total Protein Albumin Prealbumin Triglycerides Cholesterol LDL Cholesterol Direct HDL Cholesterol Urine pH Urine WBC (Auto) Urine Creatinine Urine Total Protein Fluid Total Protein Vancomycin Trough Rheumatoid Factor Complement C4 Miscellaneous Test Crossmatch 12/26/16 12/26/16 12/26/16 05:50 12:17 12:33 WBC RBC Hgb Hct MCV MCH MCHC RDW Plt Count Lymph % (Auto) [place] % (Auto) Lymph # [place] # Baso # Seg Neutrophils % Seg Neuts % (Manual) Lymphocytes % (Manual) Monocytes % (Manual) Eosinophils % (Manual) Basophils % (Manual) Nucleated RBC % Seg Neutrophils # Seg Neutrophils # Man Lymphocytes # (Manual) Monocytes # (Manual) Eosinophils # (Manual) Basophils # (Manual) PT INR Fibrinogen dRVVT Confirm Interp Factor V Activity POC ABG pH POC ABG pCO2 POC ABG pO2 ABG pO2 ABG HCO3 ABG Base Excess ABG Hemoglobin Oxyhemoglobin Sodium Potassium Chloride Carbon Dioxide BUN 73 H Creatinine 1.3 H Glucose 113 H POC Glucose 117 H Lactic Acid Calcium Phosphorus Magnesium Direct Bilirubin AST ALT Alkaline Phosphatase Lactate Dehydrogenase Troponin T C-Reactive Protein Total Protein Albumin Prealbumin Triglycerides Cholesterol LDL Cholesterol Direct HDL Cholesterol Urine pH Urine WBC (Auto) Urine Creatinine Urine Total Protein Fluid Total Protein Vancomycin Trough Rheumatoid Factor Complement C4 Miscellaneous Test Crossmatch See Detail 12/26/16 12/26/16 12/27/16 20:00 23:21 05:00 WBC RBC Hgb 8.4 L Hct 26.3 L D MCV MCH MCHC RDW Plt Count Lymph % (Auto) [place] % (Auto) Lymph # [place] # Baso # Seg Neutrophils % Seg Neuts % (Manual) Lymphocytes % (Manual) Monocytes % (Manual) Eosinophils % (Manual) Basophils % (Manual) Nucleated RBC % Seg Neutrophils # Seg Neutrophils # Man Lymphocytes # (Manual) Monocytes # (Manual) Eosinophils # (Manual) Basophils # (Manual) PT INR Fibrinogen dRVVT Confirm Interp Factor V Activity POC ABG pH POC ABG pCO2 POC ABG pO2 ABG pO2 ABG HCO3 ABG Base Excess ABG Hemoglobin Oxyhemoglobin Sodium Potassium Chloride Carbon Dioxide BUN 85 H Creatinine 1.6 H Glucose 118 H POC Glucose 124 H Lactic Acid Calcium Phosphorus 4.80 H Magnesium Direct Bilirubin AST ALT Alkaline Phosphatase Lactate Dehydrogenase Troponin T C-Reactive Protein Total Protein Albumin Prealbumin Triglycerides Cholesterol LDL Cholesterol Direct HDL Cholesterol Urine pH Urine WBC (Auto) Urine Creatinine Urine Total Protein Fluid Total Protein Vancomycin Trough Rheumatoid Factor Complement C4 Miscellaneous Test Crossmatch 12/27/16 12/27/16 12/27/16 05:00 05:35 12:24 WBC RBC Hgb 7.6 L Hct 22.8 L MCV MCH MCHC RDW Plt Count Lymph % (Auto) [place] % (Auto) Lymph # [place] # Baso # Seg Neutrophils % Seg Neuts % (Manual) Lymphocytes % (Manual) Monocytes % (Manual) Eosinophils % (Manual) Basophils % (Manual) Nucleated RBC % Seg Neutrophils # Seg Neutrophils # Man Lymphocytes # (Manual) Monocytes # (Manual) Eosinophils # (Manual) Basophils # (Manual) PT INR Fibrinogen dRVVT Confirm Interp Factor V Activity POC ABG pH POC ABG pCO2 POC ABG pO2 ABG pO2 ABG HCO3 ABG Base Excess ABG Hemoglobin Oxyhemoglobin Sodium Potassium Chloride Carbon Dioxide BUN Creatinine Glucose POC Glucose 115 H 131 H Lactic Acid Calcium Phosphorus Magnesium Direct Bilirubin AST ALT Alkaline Phosphatase Lactate Dehydrogenase Troponin T C-Reactive Protein Total Protein Albumin Prealbumin Triglycerides Cholesterol LDL Cholesterol Direct HDL Cholesterol Urine pH Urine WBC (Auto) Urine Creatinine Urine Total Protein Fluid Total Protein Vancomycin Trough Rheumatoid Factor Complement C4 Miscellaneous Test Crossmatch 12/27/16 12/28/16 12/28/16 17:16 00:18 04:00 WBC RBC Hgb Hct MCV MCH MCHC RDW Plt Count Lymph % (Auto) [place] % (Auto) Lymph # [place] # Baso # Seg Neutrophils % Seg Neuts % (Manual) Lymphocytes % (Manual) Monocytes % (Manual) Eosinophils % (Manual) Basophils % (Manual) Nucleated RBC % Seg Neutrophils # Seg Neutrophils # Man Lymphocytes # (Manual) Monocytes # (Manual) Eosinophils # (Manual) Basophils # (Manual) PT INR Fibrinogen dRVVT Confirm Interp Factor V Activity POC ABG pH POC ABG pCO2 POC ABG pO2 ABG pO2 ABG HCO3 ABG Base Excess ABG Hemoglobin Oxyhemoglobin Sodium Potassium 3.5 L Chloride Carbon Dioxide BUN 57 H Creatinine Glucose 118 H POC Glucose 136 H 120 H Lactic Acid Calcium 8.3 L Phosphorus Magnesium Direct Bilirubin AST ALT Alkaline Phosphatase Lactate Dehydrogenase Troponin T C-Reactive Protein Total Protein Albumin Prealbumin Triglycerides Cholesterol LDL Cholesterol Direct HDL Cholesterol Urine pH Urine WBC (Auto) Urine Creatinine Urine Total Protein Fluid Total Protein Vancomycin Trough Rheumatoid Factor Complement C4 Miscellaneous Test Crossmatch 12/28/16 12/28/16 12/28/16 04:00 05:11 08:30 WBC 17.0 H RBC 2.58 L Hgb 7.1 L Hct 22.0 L MCV MCH MCHC RDW 17.6 H Plt Count Lymph % (Auto) 12.2 L [place] % (Auto) Lymph # [place] # 1.1 H Baso # Seg Neutrophils % 80.5 H Seg Neuts % (Manual) Lymphocytes % (Manual) Monocytes % (Manual) Eosinophils % (Manual) Basophils % (Manual) Nucleated RBC % Seg Neutrophils # 13.7 H Seg Neutrophils # Man Lymphocytes # (Manual) Monocytes # (Manual) Eosinophils # (Manual) Basophils # (Manual) PT 16.1 H INR 1.23 H Fibrinogen dRVVT Confirm Interp Factor V Activity POC ABG pH POC ABG pCO2 POC ABG pO2 ABG pO2 ABG HCO3 ABG Base Excess ABG Hemoglobin Oxyhemoglobin Sodium Potassium Chloride Carbon Dioxide BUN Creatinine Glucose POC Glucose 122 H Lactic Acid Calcium Phosphorus Magnesium Direct Bilirubin AST ALT Alkaline Phosphatase Lactate Dehydrogenase Troponin T C-Reactive Protein Total Protein Albumin Prealbumin Triglycerides Cholesterol LDL Cholesterol Direct HDL Cholesterol Urine pH Urine WBC (Auto) Urine Creatinine Urine Total Protein Fluid Total Protein Vancomycin Trough Rheumatoid Factor Complement C4 Miscellaneous Test Crossmatch 12/28/16 12/28/16 12/28/16 12:27 16:32 23:46 WBC RBC Hgb Hct MCV MCH MCHC RDW Plt Count Lymph % (Auto) [place] % (Auto) Lymph # [place] # Baso # Seg Neutrophils % Seg Neuts % (Manual) Lymphocytes % (Manual) Monocytes % (Manual) Eosinophils % (Manual) Basophils % (Manual) Nucleated RBC % Seg Neutrophils # Seg Neutrophils # Man Lymphocytes # (Manual) Monocytes # (Manual) Eosinophils # (Manual) Basophils # (Manual) PT INR Fibrinogen dRVVT Confirm Interp Factor V Activity POC ABG pH POC ABG pCO2 POC ABG pO2 ABG pO2 ABG HCO3 ABG Base Excess ABG Hemoglobin Oxyhemoglobin Sodium Potassium Chloride Carbon Dioxide BUN Creatinine Glucose POC Glucose 127 H 117 H 108 H Lactic Acid Calcium Phosphorus Magnesium Direct Bilirubin AST ALT Alkaline Phosphatase Lactate Dehydrogenase Troponin T C-Reactive Protein Total Protein Albumin Prealbumin Triglycerides Cholesterol LDL Cholesterol Direct HDL Cholesterol Urine pH Urine WBC (Auto) Urine Creatinine Urine Total Protein Fluid Total Protein Vancomycin Trough Rheumatoid Factor Complement C4 Miscellaneous Test Crossmatch 12/29/16 12/29/16 12/29/16 05:15 05:15 05:32 WBC RBC Hgb Hct MCV MCH MCHC RDW Plt Count Lymph % (Auto) [place] % (Auto) Lymph # [place] # Baso # Seg Neutrophils % Seg Neuts % (Manual) Lymphocytes % (Manual) Monocytes % (Manual) Eosinophils % (Manual) Basophils % (Manual) Nucleated RBC % Seg Neutrophils # Seg Neutrophils # Man Lymphocytes # (Manual) Monocytes # (Manual) Eosinophils # (Manual) Basophils # (Manual) PT INR Fibrinogen dRVVT Confirm Interp Factor V Activity POC ABG pH POC ABG pCO2 POC ABG pO2 ABG pO2 ABG HCO3 ABG Base Excess ABG Hemoglobin Oxyhemoglobin Sodium Potassium Chloride Carbon Dioxide BUN 74 H Creatinine 1.6 H Glucose 111 H POC Glucose 123 H Lactic Acid Calcium Phosphorus Magnesium Direct Bilirubin AST ALT Alkaline Phosphatase Lactate Dehydrogenase Troponin T C-Reactive Protein Total Protein Albumin Prealbumin 0.110 L Triglycerides Cholesterol LDL Cholesterol Direct HDL Cholesterol Urine pH Urine WBC (Auto) Urine Creatinine Urine Total Protein Fluid Total Protein Vancomycin Trough Rheumatoid Factor Complement C4 Miscellaneous Test Crossmatch 12/29/16 12/29/16 12/29/16 11:43 13:45 14:00 WBC 13.8 H RBC 2.26 L Hgb 6.3 L Hct 20.4 L MCV MCH MCHC RDW 18.3 H Plt Count Lymph % (Auto) [place] % (Auto) Lymph # [place] # 0.9 H Baso # Seg Neutrophils % 78.6 H Seg Neuts % (Manual) Lymphocytes % (Manual) Monocytes % (Manual) Eosinophils % (Manual) Basophils % (Manual) Nucleated RBC % Seg Neutrophils # 10.8 H Seg Neutrophils # Man Lymphocytes # (Manual) Monocytes # (Manual) Eosinophils # (Manual) Basophils # (Manual) PT INR Fibrinogen dRVVT Confirm Interp Factor V Activity POC ABG pH POC ABG pCO2 POC ABG pO2 ABG pO2 ABG HCO3 ABG Base Excess ABG Hemoglobin Oxyhemoglobin Sodium Potassium Chloride Carbon Dioxide BUN Creatinine Glucose POC Glucose 133 H Lactic Acid Calcium Phosphorus Magnesium Direct Bilirubin AST ALT Alkaline Phosphatase Lactate Dehydrogenase Troponin T C-Reactive Protein Total Protein Albumin Prealbumin Triglycerides Cholesterol LDL Cholesterol Direct HDL Cholesterol Urine pH Urine WBC (Auto) Urine Creatinine Urine Total Protein Fluid Total Protein Vancomycin Trough Rheumatoid Factor Complement C4 Miscellaneous Test Crossmatch See Detail 12/29/16 12/29/16 12/29/16 17:03 23:15 23:22 WBC RBC Hgb 7.3 L Hct 22.3 L MCV MCH MCHC RDW Plt Count Lymph % (Auto) [place] % (Auto) Lymph # [place] # Baso # Seg Neutrophils % Seg Neuts % (Manual) Lymphocytes % (Manual) Monocytes % (Manual) Eosinophils % (Manual) Basophils % (Manual) Nucleated RBC % Seg Neutrophils # Seg Neutrophils # Man Lymphocytes # (Manual) Monocytes # (Manual) Eosinophils # (Manual) Basophils # (Manual) PT INR Fibrinogen dRVVT Confirm Interp Factor V Activity POC ABG pH POC ABG pCO2 POC ABG pO2 ABG pO2 ABG HCO3 ABG Base Excess ABG Hemoglobin Oxyhemoglobin Sodium Potassium Chloride Carbon Dioxide BUN Creatinine Glucose POC Glucose 139 H 120 H Lactic Acid Calcium Phosphorus Magnesium Direct Bilirubin AST ALT Alkaline Phosphatase Lactate Dehydrogenase Troponin T C-Reactive Protein Total Protein Albumin Prealbumin Triglycerides Cholesterol LDL Cholesterol Direct HDL Cholesterol Urine pH Urine WBC (Auto) Urine Creatinine Urine Total Protein Fluid Total Protein Vancomycin Trough Rheumatoid Factor Complement C4 Miscellaneous Test Crossmatch 12/30/16 12/30/16 12/30/16 04:20 04:20 05:43 WBC 15.6 H RBC 2.81 L Hgb 8.0 L Hct 24.0 L MCV MCH MCHC RDW 16.9 H Plt Count Lymph % (Auto) [place] % (Auto) Lymph # [place] # 1.0 H Baso # Seg Neutrophils % 76.2 H Seg Neuts % (Manual) Lymphocytes % (Manual) Monocytes % (Manual) Eosinophils % (Manual) Basophils % (Manual) Nucleated RBC % Seg Neutrophils # 11.9 H Seg Neutrophils # Man Lymphocytes # (Manual) Monocytes # (Manual) Eosinophils # (Manual) Basophils # (Manual) PT INR Fibrinogen dRVVT Confirm Interp Factor V Activity POC ABG pH POC ABG pCO2 POC ABG pO2 ABG pO2 ABG HCO3 ABG Base Excess ABG Hemoglobin Oxyhemoglobin Sodium Potassium Chloride Carbon Dioxide BUN 87 H Creatinine 1.8 H Glucose 119 H POC Glucose 115 H Lactic Acid Calcium Phosphorus Magnesium Direct Bilirubin AST ALT Alkaline Phosphatase Lactate Dehydrogenase Troponin T C-Reactive Protein Total Protein Albumin Prealbumin Triglycerides Cholesterol LDL Cholesterol Direct HDL Cholesterol Urine pH Urine WBC (Auto) Urine Creatinine Urine Total Protein Fluid Total Protein Vancomycin Trough Rheumatoid Factor Complement C4 Miscellaneous Test Crossmatch 12/30/16 12/30/16 12/31/16 17:27 23:21 04:00 WBC RBC Hgb Hct MCV MCH MCHC RDW Plt Count Lymph % (Auto) [place] % (Auto) Lymph # [place] # Baso # Seg Neutrophils % Seg Neuts % (Manual) Lymphocytes % (Manual) Monocytes % (Manual) Eosinophils % (Manual) Basophils % (Manual) Nucleated RBC % Seg Neutrophils # Seg Neutrophils # Man Lymphocytes # (Manual) Monocytes # (Manual) Eosinophils # (Manual) Basophils # (Manual) PT INR Fibrinogen dRVVT Confirm Interp Factor V Activity POC ABG pH POC ABG pCO2 POC ABG pO2 ABG pO2 ABG HCO3 ABG Base Excess ABG Hemoglobin Oxyhemoglobin Sodium Potassium Chloride Carbon Dioxide BUN 59 H Creatinine Glucose 298 H POC Glucose 144 H 125 H Lactic Acid Calcium Phosphorus Magnesium Direct Bilirubin AST ALT Alkaline Phosphatase Lactate Dehydrogenase Troponin T C-Reactive Protein Total Protein Albumin Prealbumin Triglycerides Cholesterol LDL Cholesterol Direct HDL Cholesterol Urine pH Urine WBC (Auto) Urine Creatinine Urine Total Protein Fluid Total Protein Vancomycin Trough Rheumatoid Factor Complement C4 Miscellaneous Test Crossmatch 12/31/16 12/31/16 12/31/16 05:11 12:18 18:17 WBC RBC Hgb Hct MCV MCH MCHC RDW Plt Count Lymph % (Auto) [place] % (Auto) Lymph # [place] # Baso # Seg Neutrophils % Seg Neuts % (Manual) Lymphocytes % (Manual) Monocytes % (Manual) Eosinophils % (Manual) Basophils % (Manual) Nucleated RBC % Seg Neutrophils # Seg Neutrophils # Man Lymphocytes # (Manual) Monocytes # (Manual) Eosinophils # (Manual) Basophils # (Manual) PT INR Fibrinogen dRVVT Confirm Interp Factor V Activity POC ABG pH POC ABG pCO2 POC ABG pO2 ABG pO2 ABG HCO3 ABG Base Excess ABG Hemoglobin Oxyhemoglobin Sodium Potassium Chloride Carbon Dioxide BUN Creatinine Glucose POC Glucose 167 H 125 H 133 H Lactic Acid Calcium Phosphorus Magnesium Direct Bilirubin AST ALT Alkaline Phosphatase Lactate Dehydrogenase Troponin T C-Reactive Protein Total Protein Albumin Prealbumin Triglycerides Cholesterol LDL Cholesterol Direct HDL Cholesterol Urine pH Urine WBC (Auto) Urine Creatinine Urine Total Protein Fluid Total Protein Vancomycin Trough Rheumatoid Factor Complement C4 Miscellaneous Test Crossmatch 12/31/16 01/01/17 01/01/17 23:55 05:00 05:12 WBC RBC Hgb Hct MCV MCH MCHC RDW Plt Count Lymph % (Auto) [place] % (Auto) Lymph # [place] # Baso # Seg Neutrophils % Seg Neuts % (Manual) Lymphocytes % (Manual) Monocytes % (Manual) Eosinophils % (Manual) Basophils % (Manual) Nucleated RBC % Seg Neutrophils # Seg Neutrophils # Man Lymphocytes # (Manual) Monocytes # (Manual) Eosinophils # (Manual) Basophils # (Manual) PT INR Fibrinogen dRVVT Confirm Interp Factor V Activity POC ABG pH POC ABG pCO2 POC ABG pO2 ABG pO2 ABG HCO3 ABG Base Excess ABG Hemoglobin Oxyhemoglobin Sodium Potassium Chloride Carbon Dioxide BUN 76 H Creatinine 1.5 H Glucose 109 H POC Glucose 129 H 129 H Lactic Acid Calcium Phosphorus Magnesium Direct Bilirubin AST ALT Alkaline Phosphatase 536 H Lactate Dehydrogenase Troponin T C-Reactive Protein Total Protein Albumin 1.5 L Prealbumin Triglycerides Cholesterol LDL Cholesterol Direct HDL Cholesterol Urine pH Urine WBC (Auto) Urine Creatinine Urine Total Protein Fluid Total Protein Vancomycin Trough Rheumatoid Factor Complement C4 Miscellaneous Test Crossmatch 01/01/17 01/01/17 01/01/17 12:25 17:01 23:32 WBC RBC Hgb Hct MCV MCH MCHC RDW Plt Count Lymph % (Auto) [place] % (Auto) Lymph # [place] # Baso # Seg Neutrophils % Seg Neuts % (Manual) Lymphocytes % (Manual) Monocytes % (Manual) Eosinophils % (Manual) Basophils % (Manual) Nucleated RBC % Seg Neutrophils # Seg Neutrophils # Man Lymphocytes # (Manual) Monocytes # (Manual) Eosinophils # (Manual) Basophils # (Manual) PT INR Fibrinogen dRVVT Confirm Interp Factor V Activity POC ABG pH POC ABG pCO2 POC ABG pO2 ABG pO2 ABG HCO3 ABG Base Excess ABG Hemoglobin Oxyhemoglobin Sodium Potassium Chloride Carbon Dioxide BUN Creatinine Glucose POC Glucose 140 H 142 H 112 H Lactic Acid Calcium Phosphorus Magnesium Direct Bilirubin AST ALT Alkaline Phosphatase Lactate Dehydrogenase Troponin T C-Reactive Protein Total Protein Albumin Prealbumin Triglycerides Cholesterol LDL Cholesterol Direct HDL Cholesterol Urine pH Urine WBC (Auto) Urine Creatinine Urine Total Protein Fluid Total Protein Vancomycin Trough Rheumatoid Factor Complement C4 Miscellaneous Test Crossmatch 01/02/17 01/02/17 01/02/17 04:56 06:00 11:37 WBC RBC Hgb Hct MCV MCH MCHC RDW Plt Count Lymph % (Auto) [place] % (Auto) Lymph # [place] # Baso # Seg Neutrophils % Seg Neuts % (Manual) Lymphocytes % (Manual) Monocytes % (Manual) Eosinophils % (Manual) Basophils % (Manual) Nucleated RBC % Seg Neutrophils # Seg Neutrophils # Man Lymphocytes # (Manual) Monocytes # (Manual) Eosinophils # (Manual) Basophils # (Manual) PT INR Fibrinogen dRVVT Confirm Interp Factor V Activity POC ABG pH POC ABG pCO2 POC ABG pO2 ABG pO2 ABG HCO3 ABG Base Excess ABG Hemoglobin Oxyhemoglobin Sodium Potassium Chloride Carbon Dioxide BUN 88 H Creatinine 1.7 H Glucose 113 H POC Glucose 136 H 200 H Lactic Acid Calcium Phosphorus Magnesium Direct Bilirubin AST ALT Alkaline Phosphatase Lactate Dehydrogenase Troponin T C-Reactive Protein Total Protein Albumin Prealbumin Triglycerides Cholesterol LDL Cholesterol Direct HDL Cholesterol Urine pH Urine WBC (Auto) Urine Creatinine Urine Total Protein Fluid Total Protein Vancomycin Trough Rheumatoid Factor Complement C4 Miscellaneous Test Crossmatch 01/02/17 01/02/17 01/03/17 17:42 22:52 04:54 WBC RBC Hgb Hct MCV MCH MCHC RDW Plt Count Lymph % (Auto) [place] % (Auto) Lymph # [place] # Baso # Seg Neutrophils % Seg Neuts % (Manual) Lymphocytes % (Manual) Monocytes % (Manual) Eosinophils % (Manual) Basophils % (Manual) Nucleated RBC % Seg Neutrophils # Seg Neutrophils # Man Lymphocytes # (Manual) Monocytes # (Manual) Eosinophils # (Manual) Basophils # (Manual) PT INR Fibrinogen dRVVT Confirm Interp Factor V Activity POC ABG pH POC ABG pCO2 POC ABG pO2 ABG pO2 ABG HCO3 ABG Base Excess ABG Hemoglobin Oxyhemoglobin Sodium Potassium Chloride Carbon Dioxide BUN Creatinine Glucose POC Glucose 112 H 133 H 111 H Lactic Acid Calcium Phosphorus Magnesium Direct Bilirubin AST ALT Alkaline Phosphatase Lactate Dehydrogenase Troponin T C-Reactive Protein Total Protein Albumin Prealbumin Triglycerides Cholesterol LDL Cholesterol Direct HDL Cholesterol Urine pH Urine WBC (Auto) Urine Creatinine Urine Total Protein Fluid Total Protein Vancomycin Trough Rheumatoid Factor Complement C4 Miscellaneous Test Crossmatch 01/03/17 01/03/17 01/03/17 05:00 05:00 14:02 WBC 11.2 H RBC 2.56 L Hgb 7.2 L Hct 22.3 L MCV MCH MCHC RDW 17.3 H Plt Count Lymph % (Auto) [place] % (Auto) 10.0 H Lymph # [place] # 1.1 H Baso # Seg Neutrophils % 70.5 H Seg Neuts % (Manual) Lymphocytes % (Manual) Monocytes % (Manual) Eosinophils % (Manual) Basophils % (Manual) Nucleated RBC % Seg Neutrophils # 7.9 H Seg Neutrophils # Man Lymphocytes # (Manual) Monocytes # (Manual) Eosinophils # (Manual) Basophils # (Manual) PT INR Fibrinogen dRVVT Confirm Interp Factor V Activity POC ABG pH POC ABG pCO2 POC ABG pO2 ABG pO2 ABG HCO3 ABG Base Excess ABG Hemoglobin Oxyhemoglobin Sodium Potassium Chloride Carbon Dioxide BUN 60 H Creatinine 1.3 H Glucose 110 H POC Glucose 119 H Lactic Acid Calcium Phosphorus Magnesium Direct Bilirubin AST ALT Alkaline Phosphatase Lactate Dehydrogenase Troponin T C-Reactive Protein Total Protein Albumin Prealbumin Triglycerides Cholesterol LDL Cholesterol Direct HDL Cholesterol Urine pH Urine WBC (Auto) Urine Creatinine Urine Total Protein Fluid Total Protein Vancomycin Trough Rheumatoid Factor Complement C4 Miscellaneous Test Crossmatch 01/03/17 01/03/17 01/04/17 18:13 23:40 05:57 WBC RBC Hgb Hct MCV MCH MCHC RDW Plt Count Lymph % (Auto) [place] % (Auto) Lymph # [place] # Baso # Seg Neutrophils % Seg Neuts % (Manual) Lymphocytes % (Manual) Monocytes % (Manual) Eosinophils % (Manual) Basophils % (Manual) Nucleated RBC % Seg Neutrophils # Seg Neutrophils # Man Lymphocytes # (Manual) Monocytes # (Manual) Eosinophils # (Manual) Basophils # (Manual) PT INR Fibrinogen dRVVT Confirm Interp Factor V Activity POC ABG pH POC ABG pCO2 POC ABG pO2 ABG pO2 ABG HCO3 ABG Base Excess ABG Hemoglobin Oxyhemoglobin Sodium Potassium Chloride Carbon Dioxide BUN Creatinine Glucose POC Glucose 107 H 129 H 111 H Lactic Acid Calcium Phosphorus Magnesium Direct Bilirubin AST ALT Alkaline Phosphatase Lactate Dehydrogenase Troponin T C-Reactive Protein Total Protein Albumin Prealbumin Triglycerides Cholesterol LDL Cholesterol Direct HDL Cholesterol Urine pH Urine WBC (Auto) Urine Creatinine Urine Total Protein Fluid Total Protein Vancomycin Trough Rheumatoid Factor Complement C4 Miscellaneous Test Crossmatch 01/04/17 01/04/17 01/04/17 12:46 15:27 17:11 WBC RBC Hgb Hct MCV MCH MCHC RDW Plt Count Lymph % (Auto) [place] % (Auto) Lymph # [place] # Baso # Seg Neutrophils % Seg Neuts % (Manual) Lymphocytes % (Manual) Monocytes % (Manual) Eosinophils % (Manual) Basophils % (Manual) Nucleated RBC % Seg Neutrophils # Seg Neutrophils # Man Lymphocytes # (Manual) Monocytes # (Manual) Eosinophils # (Manual) Basophils # (Manual) PT INR Fibrinogen dRVVT Confirm Interp Factor V Activity POC ABG pH POC ABG pCO2 POC ABG pO2 ABG pO2 ABG HCO3 ABG Base Excess ABG Hemoglobin Oxyhemoglobin Sodium Potassium Chloride Carbon Dioxide BUN 43 H Creatinine Glucose 124 H POC Glucose 159 H 125 H Lactic Acid Calcium 8.0 L Phosphorus 2.10 L Magnesium Direct Bilirubin AST ALT Alkaline Phosphatase Lactate Dehydrogenase Troponin T C-Reactive Protein Total Protein Albumin Prealbumin Triglycerides Cholesterol LDL Cholesterol Direct HDL Cholesterol Urine pH Urine WBC (Auto) Urine Creatinine Urine Total Protein Fluid Total Protein Vancomycin Trough Rheumatoid Factor Complement C4 Miscellaneous Test Crossmatch 01/04/17 01/05/17 01/05/17 23:31 04:00 05:46 WBC RBC Hgb Hct MCV MCH MCHC RDW Plt Count Lymph % (Auto) [place] % (Auto) Lymph # [place] # Baso # Seg Neutrophils % Seg Neuts % (Manual) Lymphocytes % (Manual) Monocytes % (Manual) Eosinophils % (Manual) Basophils % (Manual) Nucleated RBC % Seg Neutrophils # Seg Neutrophils # Man Lymphocytes # (Manual) Monocytes # (Manual) Eosinophils # (Manual) Basophils # (Manual) PT INR Fibrinogen dRVVT Confirm Interp Factor V Activity POC ABG pH POC ABG pCO2 POC ABG pO2 ABG pO2 ABG HCO3 ABG Base Excess ABG Hemoglobin Oxyhemoglobin Sodium Potassium Chloride Carbon Dioxide BUN 52 H Creatinine 1.3 H Glucose 113 H POC Glucose 123 H 118 H Lactic Acid Calcium Phosphorus 2.40 L Magnesium Direct Bilirubin AST ALT Alkaline Phosphatase Lactate Dehydrogenase Troponin T C-Reactive Protein Total Protein Albumin Prealbumin Triglycerides Cholesterol LDL Cholesterol Direct HDL Cholesterol Urine pH Urine WBC (Auto) Urine Creatinine Urine Total Protein Fluid Total Protein Vancomycin Trough Rheumatoid Factor Complement C4 Miscellaneous Test Crossmatch 01/05/17 01/05/17 01/05/17 11:41 17:48 23:27 WBC RBC Hgb Hct MCV MCH MCHC RDW Plt Count Lymph % (Auto) [place] % (Auto) Lymph # [place] # Baso # Seg Neutrophils % Seg Neuts % (Manual) Lymphocytes % (Manual) Monocytes % (Manual) Eosinophils % (Manual) Basophils % (Manual) Nucleated RBC % Seg Neutrophils # Seg Neutrophils # Man Lymphocytes # (Manual) Monocytes # (Manual) Eosinophils # (Manual) Basophils # (Manual) PT INR Fibrinogen dRVVT Confirm Interp Factor V Activity POC ABG pH POC ABG pCO2 POC ABG pO2 ABG pO2 ABG HCO3 ABG Base Excess ABG Hemoglobin Oxyhemoglobin Sodium Potassium Chloride Carbon Dioxide BUN Creatinine Glucose POC Glucose 163 H 142 H 155 H Lactic Acid Calcium Phosphorus Magnesium Direct Bilirubin AST ALT Alkaline Phosphatase Lactate Dehydrogenase Troponin T C-Reactive Protein Total Protein Albumin Prealbumin Triglycerides Cholesterol LDL Cholesterol Direct HDL Cholesterol Urine pH Urine WBC (Auto) Urine Creatinine Urine Total Protein Fluid Total Protein Vancomycin Trough Rheumatoid Factor Complement C4 Miscellaneous Test Crossmatch 01/06/17 05:20 WBC RBC Hgb Hct MCV MCH MCHC RDW Plt Count Lymph % (Auto) [place] % (Auto) Lymph # [place] # Baso # Seg Neutrophils % Seg Neuts % (Manual) Lymphocytes % (Manual) Monocytes % (Manual) Eosinophils % (Manual) Basophils % (Manual) Nucleated RBC % Seg Neutrophils # Seg Neutrophils # Man Lymphocytes # (Manual) Monocytes # (Manual) Eosinophils # (Manual) Basophils # (Manual) PT INR Fibrinogen dRVVT Confirm Interp Factor V Activity POC ABG pH POC ABG pCO2 POC ABG pO2 ABG pO2 ABG HCO3 ABG Base Excess ABG Hemoglobin Oxyhemoglobin Sodium Potassium Chloride Carbon Dioxide BUN Creatinine Glucose POC Glucose 108 H Lactic Acid Calcium Phosphorus Magnesium Direct Bilirubin AST ALT Alkaline Phosphatase Lactate Dehydrogenase Troponin T C-Reactive Protein Total Protein Albumin Prealbumin Triglycerides Cholesterol LDL Cholesterol Direct HDL Cholesterol Urine pH Urine WBC (Auto) Urine Creatinine Urine Total Protein Fluid Total Protein Vancomycin Trough Rheumatoid Factor Complement C4 Miscellaneous Test Crossmatch Prior PFT's, U/S of legs: other (US chest ordered) Allied health notes reviewed: RT
[2017-01-06 08:06] LABS: Calcium 9.5 mg/dL (8.4-10.2)
[2017-01-06] MEDS: HEPARIN SUB-Q SCH ×2 (09:31→22:52)
[2017-01-06] MEDS: CORDARONE PO SCH ×2 (09:32→22:00)
[2017-01-06] MEDS: PROTONIX FEEDTUBE SCH (09:32)
[2017-01-06] MEDS: NORVASC PO SCH (09:32)
[2017-01-06] MEDS: ROBINUL PO SCH ×2 (09:32→22:56)
--- NOTE | 2017-01-06 09:42 | Ultrasound Report ---
Chest ultrasound: Upright imaging of both lungs posteriorly demonstrates bilateral pleural fluid collections. The estimated volume in the left hemithorax is 460 mL and on the right side there is approximately 670 mL.
[2017-01-06] MEDS ORDERED: SODIUM BICARBONATE FEEDTUBE PRN (11:14)
[2017-01-06] MEDS ORDERED: SIMPLE SYRUP FEEDTUBE PRN ×2 (11:14)
[2017-01-06] MEDS ORDERED: PANCREAZE DR 10,500 UNIT FEEDTUBE PRN (11:14)
--- NOTE | 2017-01-06 12:46 | Progress Note ---
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 Epogen 20k TIW * Dose medications for renal function * Avoid potential nephrotoxins * Rate control per cardiology * Vent management per pulm/CCM * Pressors prn for MAP>65 Subjective Date of service: 01/06/17 Principal diagnosis: Acute resp failure on MVS; S/P Acute CVA; Acute Encephalopathy; JUANITA Interval history: new events from last pm noted Objective - Exam Narrative Exam: Gen. appearance: Patient lying in bed, no apparent distress, 4. restraints HEENT: Normocephalic, atraumatic, pupils equally round and reactive to light, extraocular movement intact, and no sclericterus,. No JVD or thyromegaly or nodule,neck supple, no carotid bruit ,mucous membranes moist, unable to examine oral cavity Heart: S1, S2, regular rate and rhythm Lungs: Clear to auscultation bilaterally, breathing comfortable Abdomen: Positive bowel sounds, nontender, nondistended, no organomegaly Extremity: No edema, cyanosis, clubbing Skin: No rash, nodules, warm, dry Neuro: Difficult to assess, facial droop, moves all 4 extremities - Vital Signs Vital signs: Vital Signs - 12hr 01/06/17 01/06/17 01/06/17 01:00 01:15 01:30 Temperature Pulse Rate 98 H 98 H 97 H Pulse Rate [ Anterior Bilateral Throughout] Pulse Rate [ Bilateral Throughout] Respiratory 18 20 20 Rate Respiratory Rate [Anterior Bilateral Throughout] Respiratory Rate [Bilateral Throughout] Blood Pressure 129/78 129/78 129/78 O2 Sat by Pulse 100 100 100 Oximetry O2 Sat by Pulse Oximetry [ Assessment] 01/06/17 01/06/17 01/06/17 01:45 02:00 02:15 Temperature Pulse Rate 109 H 105 H 97 H Pulse Rate [ Anterior Bilateral Throughout] Pulse Rate [ Bilateral Throughout] Respiratory 21 21 20 Rate Respiratory Rate [Anterior Bilateral Throughout] Respiratory Rate [Bilateral Throughout] Blood Pressure 129/78 120/84 129/78 O2 Sat by Pulse 100 100 100 Oximetry O2 Sat by Pulse Oximetry [ Assessment] 01/06/17 01/06/17 01/06/17 02:26 02:31 02:45 Temperature Pulse Rate 97 H 95 H Pulse Rate [ 96 H Anterior Bilateral Throughout] Pulse Rate [ Bilateral Throughout] Respiratory 23 21 Rate Respiratory 20 Rate [Anterior Bilateral Throughout] Respiratory Rate [Bilateral Throughout] Blood Pressure 129/78 129/78 O2 Sat by Pulse 100 100 Oximetry O2 Sat by Pulse Oximetry [ Assessment] 01/06/17 01/06/17 01/06/17 03:00 03:15 03:31 Temperature Pulse Rate 92 H 94 H 94 H Pulse Rate [ Anterior Bilateral Throughout] Pulse Rate [ Bilateral Throughout] Respiratory 20 20 19 Rate Respiratory Rate [Anterior Bilateral Throughout] Respiratory Rate [Bilateral Throughout] Blood Pressure 113/71 120/84 120/84 O2 Sat by Pulse 100 100 100 Oximetry O2 Sat by Pulse Oximetry [ Assessment] 01/06/17 01/06/17 01/06/17 03:37 03:45 04:00 Temperature 98.5 F Pulse Rate 94 H 95 H Pulse Rate [ Anterior Bilateral Throughout] Pulse Rate [ Bilateral Throughout] Respiratory 19 21 Rate Respiratory Rate [Anterior Bilateral Throughout] Respiratory Rate [Bilateral Throughout] Blood Pressure 120/84 130/81 O2 Sat by Pulse 100 100 Oximetry O2 Sat by Pulse Oximetry [ Assessment] 01/06/17 01/06/17 01/06/17 04:15 04:31 04:45 Temperature Pulse Rate 96 H 96 H 96 H Pulse Rate [ Anterior Bilateral Throughout] Pulse Rate [ Bilateral Throughout] Respiratory 18 19 17 Rate Respiratory Rate [Anterior Bilateral Throughout] Respiratory Rate [Bilateral Throughout] Blood Pressure 130/81 130/81 130/81 O2 Sat by Pulse 100 100 100 Oximetry O2 Sat by Pulse Oximetry [ Assessment] 01/06/17 01/06/17 01/06/17 05:00 05:15 05:31 Temperature Pulse Rate 96 H 104 H 96 H Pulse Rate [ Anterior Bilateral Throughout] Pulse Rate [ Bilateral Throughout] Respiratory 20 25 H 20 Rate Respiratory Rate [Anterior Bilateral Throughout] Respiratory Rate [Bilateral Throughout] Blood Pressure 140/82 140/82 140/82 O2 Sat by Pulse 100 100 100 Oximetry O2 Sat by Pulse Oximetry [ Assessment] 01/06/17 01/06/17 01/06/17 05:45 06:00 06:09 Temperature Pulse Rate 97 H 96 H 102 H Pulse Rate [ Anterior Bilateral Throughout] Pulse Rate [ Bilateral Throughout] Respiratory 19 20 Rate Respiratory Rate [Anterior Bilateral Throughout] Respiratory Rate [Bilateral Throughout] Blood Pressure 140/82 136/83 136/83 O2 Sat by Pulse 100 100 Oximetry O2 Sat by Pulse Oximetry [ Assessment] 01/06/17 01/06/17 01/06/17 06:10 06:15 06:31 Temperature Pulse Rate 98 H 99 H 98 H Pulse Rate [ Anterior Bilateral Throughout] Pulse Rate [ Bilateral Throughout] Respiratory 19 19 Rate Respiratory Rate [Anterior Bilateral Throughout] Respiratory Rate [Bilateral Throughout] Blood Pressure 136/83 136/83 136/83 O2 Sat by Pulse 100 100 Oximetry O2 Sat by Pulse Oximetry [ Assessment] 01/06/17 01/06/17 01/06/17 06:45 07:00 07:15 Temperature Pulse Rate 98 H 98 H 99 H Pulse Rate [ Anterior Bilateral Throughout] Pulse Rate [ Bilateral Throughout] Respiratory 20 17 18 Rate Respiratory Rate [Anterior Bilateral Throughout] Respiratory Rate [Bilateral Throughout] Blood Pressure 136/83 131/77 131/77 O2 Sat by Pulse 100 100 100 Oximetry O2 Sat by Pulse Oximetry [ Assessment] 01/06/17 01/06/17 01/06/17 07:31 07:45 07:50 Temperature Pulse Rate 101 H 103 H Pulse Rate [ Anterior Bilateral Throughout] Pulse Rate [ Bilateral Throughout] Respiratory 20 19 Rate Respiratory Rate [Anterior Bilateral Throughout] Respiratory Rate [Bilateral Throughout] Blood Pressure 131/77 131/77 O2 Sat by Pulse 96 100 100 Oximetry O2 Sat by Pulse Oximetry [ Assessment] 01/06/17 01/06/17 01/06/17 08:00 08:01 08:15 Temperature 99.4 F Pulse Rate 111 H 103 H Pulse Rate [ Anterior Bilateral Throughout] Pulse Rate [ Bilateral Throughout] Respiratory 20 22 Rate Respiratory Rate [Anterior Bilateral Throughout] Respiratory Rate [Bilateral Throughout] Blood Pressure 131/77 131/77 O2 Sat by Pulse 100 97 Oximetry O2 Sat by Pulse Oximetry [ Assessment] 01/06/17 01/06/17 01/06/17 08:31 08:45 09:01 Temperature Pulse Rate 106 H 100 H 105 H Pulse Rate [ Anterior Bilateral Throughout] Pulse Rate [ Bilateral Throughout] Respiratory 16 20 19 Rate Respiratory Rate [Anterior Bilateral Throughout] Respiratory Rate [Bilateral Throughout] Blood Pressure 131/77 131/77 131/77 O2 Sat by Pulse 100 100 100 Oximetry O2 Sat by Pulse Oximetry [ Assessment] 01/06/17 01/06/17 01/06/17 09:15 09:31 09:32 Temperature Pulse Rate 107 H 105 H 105 H Pulse Rate [ Anterior Bilateral Throughout] Pulse Rate [ Bilateral Throughout] Respiratory 18 17 Rate Respiratory Rate [Anterior Bilateral Throughout] Respiratory Rate [Bilateral Throughout] Blood Pressure 131/77 131/77 131/77 O2 Sat by Pulse 100 100 Oximetry O2 Sat by Pulse Oximetry [ Assessment] 01/06/17 01/06/17 01/06/17 09:35 09:40 09:45 Temperature Pulse Rate 106 H 105 H Pulse Rate [ Anterior Bilateral Throughout] Pulse Rate [ 106 H Bilateral Throughout] Respiratory 17 Rate Respiratory Rate [Anterior Bilateral Throughout] Respiratory 20 Rate [Bilateral Throughout] Blood Pressure 125/71 125/71 O2 Sat by Pulse 99 100 Oximetry O2 Sat by Pulse Oximetry [ Assessment] 01/06/17 01/06/17 01/06/17 09:52 10:00 10:15 Temperature Pulse Rate 103 H 104 H Pulse Rate [ Anterior Bilateral Throughout] Pulse Rate [ 109 H Bilateral Throughout] Respiratory 25 H 17 Rate Respiratory Rate [Anterior Bilateral Throughout] Respiratory 23 Rate [Bilateral Throughout] Blood Pressure 118/78 118/78 O2 Sat by Pulse 100 100 Oximetry O2 Sat by Pulse Oximetry [ Assessment] 01/06/17 01/06/17 01/06/17 10:25 10:31 10:45 Temperature Pulse Rate 105 H 107 H Pulse Rate [ Anterior Bilateral Throughout] Pulse Rate [ Bilateral Throughout] Respiratory 20 19 Rate Respiratory Rate [Anterior Bilateral Throughout] Respiratory Rate [Bilateral Throughout] Blood Pressure 118/78 118/78 O2 Sat by Pulse 100 100 Oximetry O2 Sat by Pulse 99 Oximetry [ Assessment] 01/06/17 01/06/17 01/06/17 11:00 11:15 11:31 Temperature Pulse Rate 106 H 111 H 109 H Pulse Rate [ Anterior Bilateral Throughout] Pulse Rate [ Bilateral Throughout] Respiratory 20 19 24 Rate Respiratory Rate [Anterior Bilateral Throughout] Respiratory Rate [Bilateral Throughout] Blood Pressure 127/79 127/79 127/79 O2 Sat by Pulse 100 100 100 Oximetry O2 Sat by Pulse Oximetry [ Assessment] 01/06/17 01/06/17 01/06/17 11:43 11:45 12:00 Temperature 98.2 F Pulse Rate 108 H 106 H Pulse Rate [ Anterior Bilateral Throughout] Pulse Rate [ Bilateral Throughout] Respiratory 22 18 Rate Respiratory Rate [Anterior Bilateral Throughout] Respiratory Rate [Bilateral Throughout] Blood Pressure 127/79 119/74 O2 Sat by Pulse 100 99 Oximetry O2 Sat by Pulse Oximetry [ Assessment] - Lab 01/03/17 05:00 01/06/17 07:35 Most recent lab results ABG pH 7.450 pH Units (7.350-7.450) 12/05/16 Unknown ABG pCO2 29.6 mm Hg 12/05/16 Unknown ABG pO2 75.2 mm Hg (80.0-90.0) L 12/05/16 Unknown ABG HCO3 20.1 mmol/L (20.0-26.0) 12/05/16 Unknown ABG O2 Saturation 96.8 % (95.0-99.0) 12/05/16 Unknown Calcium 9.5 mg/dL (8.4-10.2) 01/06/17 07:35 Phosphorus 3.50 mg/dL (2.5-4.5) D 01/06/17 07:35 Magnesium 1.80 mg/dL (1.7-2.3) 01/05/17 04:00 Urine Creatinine 19.7 mg/dL (0.1-20.0) 11/12/16 10:18 Urine Sodium 36 mEq/L 09/16/16 19:19 Urine Total Protein 16 mg/dL (5-11.8) H 09/16/16 19:19
--- NOTE | 2017-01-06 13:43 | XRay Report ---
KUB: History: Feeding tube placement. Findings: Tip of feeding tube is noted in stomach. Impression: Tip of feeding tube in stomach.
[2017-01-06] MEDS: REGLAN IV SCH ×2 (14:35→22:58)
[2017-01-06] MEDS: DAKIN'S HALF STRENGTH TP SCH ×2 (17:15→22:00)
[2017-01-06] MEDS: HEPARIN IV PRN (18:42)
[2017-01-06] MEDS ORDERED: INTRALIPID 20% 250 ML IV SCH (20:00)
[2017-01-06] MEDS ORDERED: TPN ADULT IV SCH (20:00)
--- NOTE | 2017-01-06 20:03 | Progress Note ---
Assessment and Plan Assessment and plan: Patient is 46-year-old woman with a history of hypertension, diabetes, asthma, hyperlipidemia, chronic kidney disease and anxiety , who was brought in by family because, she couldn't get her words out, her face was also twisted, she was admitted for acute CVA and accelerated hypertension, she had a hx of poor adherence with her medications, and uncontrolled htn. Patient's SBP on admission was noted be greater than 260. TPA was started but this was discontinued after 5 minutes because her blood pressure became uncontrolled. The TPA was not initiated again because the patient was outside the TPA window. Status post cardiac arrest , 11/21/16 on Mechanical ventilation >96 hrs - Received CPR and was resuscitated. - Patient is on amiodarone. Fever - resolved - Antibiotic discontinued today per ID - s/p R thoracentesis on 11/14, 240cc of serous fluid removed, cx of fluid was negative - Stool negative for C. difficile Severe Sepsis with septic shock - Patient has episode of fever and leukocytosis Surgical wound infection/gram-negative sepsis/candidemia/peritonitis - On TPN JUANITA, ESRD - discussed with Dr Wadsworth - on HD - Cr 1.7 today Acute CVA with infarct - Neurology input appreciated - CT shows continued evolution of left MCA infarct with slight mass effect and edema, and there is no hemorrhage - PRINCE showed hyperdynamic with ef of 75%, neither clot nor septal defect seen - MRA Brain shows near complete occlusion of M2 and M3 of the left MCA - Repeat CT scan done on 09/11, shows stable findings - carotid doppler negative - Echo shows preserved systolic function but does show some left ventricular diastolic dysfunction - continue asa and statin Persistent vegetative state - This patient's needs placement at SNF - She was denied for LTACH Acute hypoxic respiratory failure requiring MV >96hrs - Status post tracheostomy, was on T piece Nosocomial acquired aspiration pneumonia/sepsis/UTI - Finished a course of antibiotics Asthma/COPD exacerbation - ON trach, mechanical ventilation >96 hrs Status Post CVA Bilateral pleural effusion, s/p right thoracentesis A. fib with RVR Diabetes type 2. Continue sliding-scale regular insulin and Accu-Cheks. Hyperlipidemia. Continue statin Nutrition - TPN Anemia requiring multiple transfusions/acute blood loss - currently stable - Will transfuse if it is below 7 Sacral decubitus ulcer - Status post debridement Disposition. Very poor prognosis. Ethics consult has been placed, will await there input. The high probability of a clinically significant, sudden or life threatening deterioration of the [neurologic, CV] system(s) required my full and direct attention, intervention and personal management. The aggregate critical care time was [35] minutes. This time is in addition to time spent performing reported procedures but includes the following: [x] Data Review and interpretation [x] Patient assessment and monitoring of vital signs [x] Documentation [x] Medication orders and management History Interval history: patient seen and examined, remains unresponsive on the ventilator. No new event , Hospitalist Physical - Physical exam Narrative exam: GEN: Ill appearing, trach, staring into space, not tracking either NECK: SUPPLE, trach in place, ngt in place CVS: regular currently NORMAL S1S2 LUNGS/CHEST: NORMAL CHEST EXPANSION B, GOOD AIR ENTRY B ABD: SOFT, NTND, ostomy bags in different locations, GBS, NO REBOUND OR GUARDING, peg tube in place EXT/SKIN: NO SIGNIFICANT EDEMA BUT WITH UNSTAGEABLE SACRAL DECUB, wound vac inplace MSK: +spontaneous non purposeful movement NEURO: on a ventilator and unresponsive despite being off sedation PSY: Comatose, - Constitutional Vitals: Temp Pulse Resp BP Pulse Ox 99.2 F 118 H 25 H 113/68 100 01/06/17 18:15 01/06/17 19:46 01/06/17 19:46 01/06/17 19:46 01/06/17 19:46 General appearance: Present: no acute distress, well-nourished, obese Results - Labs CBC & Chem 7: 01/03/17 05:00 01/07/17 06:00 Labs: Laboratory Last Values WBC 11.2 K/mm3 (4.5-11.0) H 01/03/17 05:00 RBC 2.56 M/mm3 (3.65-5.03) L 01/03/17 05:00 Hgb 7.2 gm/dl (10.1-14.3) L 01/03/17 05:00 Hct 22.3 % (30.3-42.9) L 01/03/17 05:00 MCV 87 fl (79-97) 01/03/17 05:00 MCH 28 pg (28-32) 01/03/17 05:00 MCHC 32 % (30-34) 01/03/17 05:00 RDW 17.3 % (13.2-15.2) H 01/03/17 05:00 Plt Count 366 K/mm3 (140-440) 01/03/17 05:00 Lymph % (Auto) 18.5 % (13.4-35.0) 01/03/17 05:00 [place] % (Auto) 10.0 % (0.0-7.3) H 01/03/17 05:00 Eos % (Auto) 0.5 % (0.0-4.3) 01/03/17 05:00 Baso % (Auto) 0.5 % (0.0-1.8) 01/03/17 05:00 Lymph # 2.1 K/mm3 (1.2-5.4) 01/03/17 05:00 [place] # 1.1 K/mm3 (0.0-0.8) H 01/03/17 05:00 Eos # 0.1 K/mm3 (0.0-0.4) 01/03/17 05:00 Baso # 0.1 K/mm3 (0.0-0.1) 01/03/17 05:00 Add Manual Diff Complete 12/19/16 05:02 Total Counted 100 12/19/16 05:02 Seg Neutrophils % 70.5 % (40.0-70.0) H 01/03/17 05:00 Seg Neuts % (Manual) 64.0 % (40.0-70.0) 12/19/16 05:02 Band Neutrophils % 15.0 % 12/19/16 05:02 Lymphocytes % (Manual) 13.0 % (13.4-35.0) L 12/19/16 05:02 Reactive Lymphs % (Man) 0 % 12/19/16 05:02 Monocytes % (Manual) 7.0 % (0.0-7.3) 12/19/16 05:02 Eosinophils % (Manual) 0 % (0.0-4.3) 12/19/16 05:02 Basophils % (Manual) 1.0 % (0.0-1.8) 12/19/16 05:02 Metamyelocytes % 0 % 12/19/16 05:02 Myelocytes % 0 % 12/19/16 05:02 Promyelocytes % 0 % 12/19/16 05:02 Blast Cells % 0 % 12/19/16 05:02 Nucleated RBC % 1.0 % (0.0-0.9) H 12/19/16 05:02 Seg Neutrophils # 7.9 K/mm3 (1.8-7.7) H 01/03/17 05:00 Seg Neutrophils # Man 12.9 K/mm3 (1.8-7.7) H 12/19/16 05:02 Band Neutrophils # 3.0 K/mm3 12/19/16 05:02 Lymphocytes # (Manual) 2.6 K/mm3 (1.2-5.4) 12/19/16 05:02 Abs React Lymphs (Man) 0.0 K/mm3 12/19/16 05:02 Monocytes # (Manual) 1.4 K/mm3 (0.0-0.8) H 12/19/16 05:02 Eosinophils # (Manual) 0.0 K/mm3 (0.0-0.4) 12/19/16 05:02 Basophils # (Manual) 0.2 K/mm3 (0.0-0.1) H 12/19/16 05:02 Metamyelocytes # 0.0 K/mm3 12/19/16 05:02 Myelocytes # 0.0 K/mm3 12/19/16 05:02 Promyelocytes # 0.0 K/mm3 12/19/16 05:02 Blast Cells # 0.0 K/mm3 12/19/16 05:02 Pathologist Review 09/13/16 04:00 WBC Morphology Not Reportable 12/19/16 05:02 Hypersegmented Neuts Not Reportable 12/19/16 05:02 Hyposegmented Neuts Not Reportable 12/19/16 05:02 Hypogranular Neuts Not Reportable 12/19/16 05:02 Smudge Cells Not Reportable 12/19/16 05:02 Toxic Granulation Not Reportable 12/19/16 05:02 Toxic Vacuolation Not Reportable 12/19/16 05:02 Dohle Bodies Not Reportable 12/19/16 05:02 Pelger-Huet Anomaly Not Reportable 12/19/16 05:02 Jasmina Rods Not Reportable 12/19/16 05:02 Platelet Estimate Consistent w auto 12/19/16 05:02 Clumped Platelets Not Reportable 12/19/16 05:02 Plt Clumps, EDTA Not Reportable 12/19/16 05:02 Large Platelets Not Reportable 12/19/16 05:02 Giant Platelets Not Reportable 12/19/16 05:02 Platelet Satelliting Not Reportable 12/19/16 05:02 Plt Morphology Comment Not Reportable 12/19/16 05:02 RBC Morphology Not Reportable 12/19/16 05:02 Dimorphic RBCs Not Reportable 12/19/16 05:02 Polychromasia Not Reportable 12/19/16 05:02 Hypochromasia Not Reportable 12/19/16 05:02 Poikilocytosis Not Reportable 12/19/16 05:02 Anisocytosis Not Reportable 12/19/16 05:02 Microcytosis Not Reportable 12/19/16 05:02 Macrocytosis Not Reportable 12/19/16 05:02 Spherocytes Not Reportable 12/19/16 05:02 Pappenheimer Bodies Not Reportable 12/19/16 05:02 Sickle Cells Not Reportable 12/19/16 05:02 Target Cells Few 12/19/16 05:02 Tear Drop Cells Not Reportable 12/19/16 05:02 Ovalocytes Not Reportable 12/19/16 05:02 Stomatocytes Rare 12/03/16 04:00 Helmet Cells Not Reportable 12/19/16 05:02 Monet-Rollins Bodies Not Reportable 12/19/16 05:02 [place] Rings Not Reportable 12/19/16 05:02 [place] Cells Not Reportable 12/19/16 05:02 Bite Cells Not Reportable 12/19/16 05:02 Crenated Cell Not Reportable 12/19/16 05:02 Elliptocytes Not Reportable 12/19/16 05:02 Acanthocytes (Spur) Not Reportable 12/19/16 05:02 Rouleaux Not Reportable 12/19/16 05:02 Hemoglobin C Crystals Not Reportable 12/19/16 05:02 Schistocytes Not Reportable 12/19/16 05:02 Malaria parasites Not Reportable 12/19/16 05:02 ESR > 140.0 mm/Hr (0-20) 09/08/16 11:48 Jun Bodies Not Reportable 12/19/16 05:02 Hem Pathologist Commnt No 12/19/16 05:02 PT 16.1 Sec. (12.2-14.9) H 12/28/16 08:30 INR 1.23 (0.87-1.13) H 12/28/16 08:30 APTT 33.0 Sec. (24.2-36.6) 10/09/16 03:45 Thrombin Time 16.8 Sec. (15.1-19.6) 09/03/16 00:10 Fibrinogen 750 mg/dl (211-480) H 09/08/16 11:48 Lupus Anticoagulant see below 09/12/16 09:59 LA PTT Baseline See scanned report 09/12/16 09:59 dRVVT Confirm Interp Positive (Negative) H 09/12/16 09:59 dRVVT Screen 50:50 See scanned report 09/12/16 09:59 dRVVT Mix Interpret See scanned report 09/12/16 09:59 Protein C Antigen 122 % (70-140) 09/08/16 15:35 Free Protein S 97 % normal (50-147) 09/08/16 15:35 Total Protein S 109 % (70-140) 09/08/16 15:35 Antithrombin III Ag 100 % (80-120) 09/08/16 15:35 Heparin Anti-Xa, Unfract Negative (Negative) 09/29/16 13:35 Factor V Activity 182 % (65-150) H 09/08/16 15:35 POC ABG pH 7.503 (7.35-7.45) H 12/19/16 09:36 ABG pH 7.450 pH Units (7.350-7.450) 12/05/16 Unknown POC ABG pCO2 30.1 (35-45) L 12/19/16 09:36 ABG pCO2 29.6 mm Hg 12/05/16 Unknown POC ABG pO2 85 (80-105) 12/19/16 09:36 ABG pO2 75.2 mm Hg (80.0-90.0) L 12/05/16 Unknown POC ABG HCO3 23.6 12/19/16 09:36 ABG HCO3 20.1 mmol/L (20.0-26.0) 12/05/16 Unknown POC ABG Total CO2 25 12/19/16 09:36 POC ABG O2 Sat 97 12/19/16 09:36 ABG O2 Saturation 96.8 % (95.0-99.0) 12/05/16 Unknown ABG O2 Content 9.9 (0.0-44) 12/05/16 Unknown POC ABG Base Excess 1 12/19/16 09:36 ABG Base Excess -3.4 mmol/L (-2.0-3.0) L 12/05/16 Unknown ABG Hemoglobin 7.4 gm/dl (12.0-16.0) L 12/05/16 Unknown ABG Carboxyhemoglobin 1.8 % (0.0-5.0) 12/05/16 Unknown ABG Methemoglobin 0.6 % (0.0-1.5) 12/05/16 Unknown Oxyhemoglobin 94.5 % (95.0-99.0) L 12/05/16 Unknown FiO2 28 % 12/19/16 09:36 Sodium 140 mmol/L (137-145) 01/06/17 07:35 Potassium 4.5 mmol/L (3.6-5.0) 01/06/17 07:35 Chloride 102.1 mmol/L (98-107) 01/06/17 07:35 Carbon Dioxide 24 mmol/L (22-30) 01/06/17 07:35 Anion Gap 18 mmol/L 01/06/17 07:35 BUN 74 mg/dL (7-17) H 01/06/17 07:35 Creatinine 1.6 mg/dL (0.7-1.2) H 01/06/17 07:35 Estimated GFR 42 ml/min 01/06/17 07:35 BUN/Creatinine Ratio 46 % 01/06/17 07:35 Glucose 135 mg/dL (65-100) H 01/06/17 07:35 POC Glucose 146 (70-105) H 01/06/17 17:17 Osmolality 351 Mosm/kg 09/16/16 11:47 Lactic Acid 4.50 mmol/L (0.7-2.0) H* 09/28/16 07:25 Calcium 9.5 mg/dL (8.4-10.2) 01/06/17 07:35 Phosphorus 3.50 mg/dL (2.5-4.5) D 01/06/17 07:35 Magnesium 1.80 mg/dL (1.7-2.3) 01/05/17 04:00 Total Bilirubin 0.50 mg/dL (0.1-1.2) 01/01/17 05:00 Direct Bilirubin 0.3 mg/dL (0-0.2) H 10/10/16 05:00 Indirect Bilirubin 0.1 mg/dL 10/10/16 05:00 AST 35 units/L (5-40) 01/01/17 05:00 ALT 51 units/L (7-56) 01/01/17 05:00 Alkaline Phosphatase 536 units/L (35-129) H 01/01/17 05:00 Ammonia 27.0 umol/L (25-60) 09/07/16 08:37 Lactate Dehydrogenase 196 units/L (91-180) H 11/11/16 06:59 Total Creatine Kinase 121 units/L (30-135) 09/29/16 20:12 CK-MB (CK-2) < 1.0 ng/mL (0.0-4.0) 09/29/16 20:12 CK-MB (CK-2) Rel Index 0.8 (0-4) 09/29/16 20:12 Troponin T 0.204 ng/mL (0.00-0.029) H* 09/29/16 20:12 C-Reactive Protein 19.30 mg/dL (0.00-1.30) H 12/05/16 05:00 Total Protein 6.3 g/dL (6.3-8.2) 01/01/17 05:00 Albumin 1.5 g/dL (3.9-5) L 01/01/17 05:00 Albumin/Globulin Ratio 0.3 % 01/01/17 05:00 Prealbumin 0.110 g/L (0.200-0.400) L 12/29/16 05:15 Triglycerides 137 mg/dL (2-149) 09/29/16 20:12 Cholesterol 31 mg/dL (50-199) L 09/29/16 20:12 LDL Cholesterol Direct 4 mg/dL (50-130) L 09/29/16 20:12 HDL Cholesterol 3 mg/dL (40-59) L 09/29/16 20:12 Cholesterol/HDL Ratio 10.33 % 09/29/16 20:12 Angiotensin Convert Enz See scanned report 09/08/16 11:48 Renin 0.99 ng/mL/h (0.25-5.82) 10/07/16 10:56 Aldosterone <1 ng/dL () 10/07/16 10:56 Aldosterone/Renin Dir see below 10/07/16 10:56 Serotonin Release Assay See scanned report 09/29/16 13:35 TSH 1.010 mlU/mL (0.270-4.200) 09/07/16 08:37 HCG, Qual Negative (Negative) 09/03/16 00:10 Urine Color Yellow (Yellow) 11/05/16 13:09 Urine Turbidity Clear (Clear) 11/05/16 13:09 Urine pH 9.0 (5.0-7.0) H 11/05/16 13:09 Ur Specific [place] 1.011 (1.003-1.030) 11/05/16 13:09 Urine Protein 100 mg/dl mg/dL (Negative) 11/05/16 13:09 Urine Glucose (UA) Neg mg/dL (Negative) 11/05/16 13:09 Urine Ketones Neg mg/dL (Negative) 11/05/16 13:09 Urine Blood Neg (Negative) 11/05/16 13:09 Urine Nitrite Neg (Negative) 11/05/16 13:09 Urine Bilirubin Neg (Negative) 11/05/16 13:09 Urine Urobilinogen < 2.0 mg/dL (<2.0) 11/05/16 13:09 Ur Leukocyte Esterase Neg (Negative) 11/05/16 13:09 Urine WBC (Auto) 4.0 /HPF (0.0-6.0) 11/05/16 13:09 Urine RBC (Auto) 1.0 /HPF (0.0-6.0) 11/05/16 13:09 U Epithel Cells (Auto) 1.0 /HPF (0-13.0) 10/07/16 18:30 Urine Bacteria (Auto) 4+ /HPF (Negative) 11/05/16 13:09 Urine WBC Clumps 2+ /HPF 09/07/16 02:47 Hyaline Casts 4 /LPF 09/07/16 02:47 Urine Mucus Few /HPF 10/07/16 18:30 Urine Yeast (Budding) 3+ /HPF 10/07/16 18:30 Urine Eosinophils None seen (None Seen) 09/07/16 16:00 Urine Total Volume 950 11/12/16 10:18 Urine Creatinine 19.7 mg/dL (0.1-20.0) 11/12/16 10:18 Height (in) 65.0 inches 11/12/16 10:18 Weight (lb) 181.0 lbs 11/12/16 10:18 Creatinine Clearance 5 11/12/16 10:18 Urine Sodium 36 mEq/L 09/16/16 19:19 Urine Total Protein 16 mg/dL (5-11.8) H 09/16/16 19:19 Fluid Total Protein < 3.0 (15.0-45.0) L 11/10/16 14:20 Fluid LDH 123 11/10/16 14:20 Vancomycin Trough 2.3 ug/mL (5.0-20.0) L 09/21/16 13:00 Random Vancomycin 16.5 ug/mL (0-40.0) 11/28/16 09:45 Urine Opiates Screen Presumptive negative 09/03/16 15:11 Urine Methadone Screen Presumptive positive 09/03/16 15:11 Ur Barbiturates Screen Presumptive positive 09/03/16 15:11 Ur Phencyclidine Scrn Presumptive negative 09/03/16 15:11 Ur Amphetamines Screen Presumptive negative 09/03/16 15:11 U Benzodiazepines Scrn Presumptive negative 09/03/16 15:11 Urine Cocaine Screen Presumptive negative 09/03/16 15:11 U Marijuana (THC) Screen Presumptive positive 09/03/16 15:11 Drugs of Abuse Note Disclamer 09/03/16 15:11 Rheumatoid Factor 24 IU/ml (0-13) H 09/08/16 11:48 SAHIL Screen Negative (Negative) 09/07/16 09:20 Proteinase 3 (PR3) Ab <1.0 AI (<1.0) 09/07/16 09:20 Myeloperoxidase Ab <1.0 AI (<1.0) 09/07/16 09:20 Sjogren's Antibody <1.0 AI (<1.0) 09/08/16 15:35 Scl-70 Scleroderma Ab <1.0 AI (<1.0) 09/08/16 15:35 Centromere B Antibody <1.0 AI (<1.0) 09/08/16 12:02 Heparin-induced Plt Ab Negative (Negative) 09/29/16 13:35 UF Heparin High Dose 11 % Release 09/29/16 13:35 SUDHIR UFH Low Dose 0.1 6 % Release 09/29/16 13:35 SUDHIR UFH Low Dose 0.5 8 % Release 09/29/16 13:35 Cardiolipid IgG Ab <14 GPL (<=14) 09/12/16 09:59 Cardiolipid IgA Ab <11 APL (<=11) 09/12/16 09:59 Cardiolipid IgM Ab <12 MPL (<=12) 09/12/16 09:59 Complement C3 148 mg/dL (90-180) 09/07/16 09:20 Complement C4 58 mg/dL (16-47) H 09/07/16 09:20 RPR Nonreactive (Nonreactive) 09/08/16 11:48 Hepatitis A IgM Ab Non-reactive (NonReactive) 09/24/16 14:40 Hep Bs Antigen Non-reactive (Negative) 09/24/16 14:40 Hep B Core IgM Ab Non-reactive (NonReactive) 09/24/16 14:40 Hepatitis C Antibody Non-reactive (NonReactive) 09/24/16 14:40 HIV 1&2 Antibody Rapid Non react (Non React) 09/08/16 11:48 HIV P24 Antigen Non react (Non React) 09/08/16 11:48 Miscellaneous Test Flexitest 1 H 11/05/16 13:25 Blood Type A POSITIVE 12/29/16 14:00 Antibody Screen Negative 12/29/16 14:00 DELORIS Antibody Screen Negative 11/24/16 11:20 Crossmatch See Detail 12/29/16 14:00
[2017-01-07] MEDS: LOPRESSOR PO SCH ×3 (00:46→13:11)
[2017-01-07] MEDS: DUONEB *Not for PRN Use IH SCH ×4 (01:30→19:30)
[2017-01-07] MEDS: APRESOLINE PO SCH ×2 (06:00→18:19)
[2017-01-07] MEDS: REGLAN IV SCH ×3 (06:20→21:24)
[2017-01-07] MEDS: DILAUDID IV PRN (06:21)
[2017-01-07] MEDS: HumuLIN R SUB-Q SCH ×3 (06:34→15:09)
[2017-01-07 07:15] LABS: BUN/Creatinine Ratio 42; Blood Urea Nitrogen 42 mg/dL (7-17); Calcium 8.7 mg/dL (8.4-10.2); Hemolysis Index 15
[2017-01-07] MEDS: HEPARIN SUB-Q SCH ×2 (10:41→21:24)
--- NOTE | 2017-01-07 11:50 | Progress Note ---
Assessment and Plan Acute Hypoxemic Respiratory Failure (now with exacerbation and back on MVS) Hypertension (unable to receive p.o. meds) Atrial Fibrillation with RVR s/p tracheostomy Acute encephalopathy s/p CVA Oropharyngeal dysphagia Enterococcal bacteremia sepsis syndrome Sacral Decubitus Ulcer (s/p surgical debridement) Anemia Obesity JUANITA now on hemodialysis Enteric Fistula - resume tube feeds at 10mls/hr after a few hours on hold; increase reglan at 5mg IV q6h - resume vasopressin and target MAP >/= 65mmHg; also will give albumin bolus - continue HD/UF per nephrology; with CXR picture and chest ultrasound i will recommend continued UF sessions at least 3 x weekly as tolerated - US chest reviewed; will tentatively get US of right chest on monday with hopes of improving weaning tolerance - continue fentanyl patch for pain issues especially s/p debridement - continue wound care per WCT and RN's (s/p surgical debridement) - prn CRP & lactate levels if clinically indicated (Follow WBC also) - keep on with daily PSV trials and / or T-piece as tolerated (repeat trial each shift if failed earlier shift)(not tolerating today) - continue TPN administration - continue scopolamine for secretion control - continue to wean FiO2 for sats > 94% - continue bronchodilators and pulmonary toilet - VAP bundle addressed - continue prn IV metorolol - continue metoprolol and amlodipine (hold for hypotension) - continue to follow electrolytes and correct as necessary - continue GI & VTE prophylaxis - Continue flu & pneumovax per protocol - ethics consult placed .....she remains critically ill on life sustaining interventions including MVS and at risk for further deterioration including ....35' CCT today without overlap ....care plan discussed at length during team rounds ...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 and this has intermittently been conveyed to family Subjective Date of service: 01/07/17 Principal diagnosis: Acute resp failure on MVS; S/P Acute CVA; Acute Encephalopathy; JUANITA Interval history: Patient is seen today for: Acute resp failure on MVS; S/P Acute CVA; Acute Encephalopathy; JUANITA Seen and examined at bedside; 24hour events reviewed; nursing and respiratory care staff consulted; no adverse overnight events reported to me; silvia remains critically ill and is not tolerating weaning well; vomited this am and tube feeds turned off (apparently had been going at 60mls/hr); AMS is persistent ; hypotensive now post emesis. Objective Vital Signs - 12hr 01/07/17 01/07/17 01/07/17 00:00 00:15 00:21 Temperature 98.1 F Pulse Rate 113 H 116 H Pulse Rate [ Bilateral Throughout] Pulse Rate [ 114 H From Monitor] Respiratory 19 18 Rate Respiratory Rate [Bilateral Throughout] Blood Pressure 102/62 109/63 O2 Sat by Pulse 100 Oximetry O2 Sat by Pulse Oximetry [ Assessment] 01/07/17 01/07/17 01/07/17 00:30 00:45 00:46 Temperature Pulse Rate 113 H 113 H 114 H Pulse Rate [ Bilateral Throughout] Pulse Rate [ From Monitor] Respiratory 16 12 Rate Respiratory Rate [Bilateral Throughout] Blood Pressure 110/61 101/67 100/52 O2 Sat by Pulse Oximetry O2 Sat by Pulse Oximetry [ Assessment] 01/07/17 01/07/17 01/07/17 01:00 01:15 01:30 Temperature Pulse Rate 113 H 114 H 117 H Pulse Rate [ 111 H Bilateral Throughout] Pulse Rate [ From Monitor] Respiratory 23 22 27 H Rate Respiratory 21 Rate [Bilateral Throughout] Blood Pressure 97/57 108/59 122/71 O2 Sat by Pulse Oximetry O2 Sat by Pulse Oximetry [ Assessment] 01/07/17 01/07/17 01/07/17 01:45 02:00 02:15 Temperature Pulse Rate 114 H 114 H 114 H Pulse Rate [ 113 H Bilateral Throughout] Pulse Rate [ From Monitor] Respiratory 18 20 20 Rate Respiratory 21 Rate [Bilateral Throughout] Blood Pressure 110/58 105/68 116/63 O2 Sat by Pulse Oximetry O2 Sat by Pulse Oximetry [ Assessment] 01/07/17 01/07/17 01/07/17 02:30 02:45 03:00 Temperature Pulse Rate 117 H 110 H 114 H Pulse Rate [ Bilateral Throughout] Pulse Rate [ From Monitor] Respiratory 16 16 20 Rate Respiratory Rate [Bilateral Throughout] Blood Pressure 111/63 112/68 116/68 O2 Sat by Pulse Oximetry O2 Sat by Pulse Oximetry [ Assessment] 01/07/17 01/07/17 01/07/17 03:15 03:30 03:45 Temperature Pulse Rate 117 H 117 H 117 H Pulse Rate [ Bilateral Throughout] Pulse Rate [ From Monitor] Respiratory 21 20 20 Rate Respiratory Rate [Bilateral Throughout] Blood Pressure 116/65 109/69 111/58 O2 Sat by Pulse Oximetry O2 Sat by Pulse Oximetry [ Assessment] 01/07/17 01/07/17 01/07/17 04:00 04:15 04:30 Temperature Pulse Rate 117 H 119 H 114 H Pulse Rate [ Bilateral Throughout] Pulse Rate [ 109 H From Monitor] Respiratory 20 19 20 Rate Respiratory Rate [Bilateral Throughout] Blood Pressure 99/61 114/66 104/56 O2 Sat by Pulse 100 Oximetry O2 Sat by Pulse Oximetry [ Assessment] 01/07/17 01/07/17 01/07/17 04:46 05:00 05:16 Temperature Pulse Rate 127 H 134 H 133 H Pulse Rate [ Bilateral Throughout] Pulse Rate [ From Monitor] Respiratory 16 14 28 H Rate Respiratory Rate [Bilateral Throughout] Blood Pressure 104/56 104/56 104/56 O2 Sat by Pulse Oximetry O2 Sat by Pulse Oximetry [ Assessment] 01/07/17 01/07/17 01/07/17 05:30 05:46 06:00 Temperature 97.3 F L Pulse Rate 126 H 128 H 123 H Pulse Rate [ Bilateral Throughout] Pulse Rate [ From Monitor] Respiratory 24 18 22 Rate Respiratory Rate [Bilateral Throughout] Blood Pressure 104/56 104/57 110/66 O2 Sat by Pulse Oximetry O2 Sat by Pulse Oximetry [ Assessment] 01/07/17 01/07/17 01/07/17 06:16 06:21 06:30 Temperature Pulse Rate 123 H 118 H Pulse Rate [ Bilateral Throughout] Pulse Rate [ From Monitor] Respiratory 21 31 H 16 Rate Respiratory Rate [Bilateral Throughout] Blood Pressure 110/66 84/40 O2 Sat by Pulse Oximetry O2 Sat by Pulse Oximetry [ Assessment] 01/07/17 01/07/17 01/07/17 06:46 06:51 07:00 Temperature Pulse Rate 117 H 117 H Pulse Rate [ Bilateral Throughout] Pulse Rate [ From Monitor] Respiratory 19 19 20 Rate Respiratory Rate [Bilateral Throughout] Blood Pressure 84/40 101/48 O2 Sat by Pulse Oximetry O2 Sat by Pulse Oximetry [ Assessment] 01/07/17 01/07/17 01/07/17 07:16 07:30 07:46 Temperature Pulse Rate 118 H 116 H 116 H Pulse Rate [ Bilateral Throughout] Pulse Rate [ From Monitor] Respiratory 16 16 19 Rate Respiratory Rate [Bilateral Throughout] Blood Pressure 101/48 92/49 101/48 O2 Sat by Pulse Oximetry O2 Sat by Pulse Oximetry [ Assessment] 01/07/17 01/07/17 01/07/17 07:49 08:00 08:16 Temperature 99.6 F Pulse Rate 116 H 113 H Pulse Rate [ Bilateral Throughout] Pulse Rate [ From Monitor] Respiratory 19 19 Rate Respiratory Rate [Bilateral Throughout] Blood Pressure 98/46 97/57 O2 Sat by Pulse 99 Oximetry O2 Sat by Pulse 99 Oximetry [ Assessment] 01/07/17 01/07/17 01/07/17 08:30 09:01 09:15 Temperature Pulse Rate 116 H Pulse Rate [ 117 H 113 H Bilateral Throughout] Pulse Rate [ From Monitor] Respiratory 21 Rate Respiratory 21 23 Rate [Bilateral Throughout] Blood Pressure 90/51 O2 Sat by Pulse Oximetry O2 Sat by Pulse Oximetry [ Assessment] 01/07/17 01/07/17 09:20 11:48 Temperature 99.6 F Pulse Rate Pulse Rate [ Bilateral Throughout] Pulse Rate [ From Monitor] Respiratory Rate Respiratory Rate [Bilateral Throughout] Blood Pressure O2 Sat by Pulse 99 Oximetry O2 Sat by Pulse Oximetry [ Assessment] Constitutional: appears uncomfortable, other (not tracking) Eyes: non-icteric, other (tracheostomy tube in midline of neck) ENT: oropharynx moist, oropharyngeal exudate pre Neck: supple, no lymphadenopathy, no JVD, other (no thyromegaly) Effort: mildly labored Ascultation: Bilateral: diminished breath sounds (bases), rhonchi (and referred upper airway sounds) Percussion: Bilateral: dull (bases) Cardiovascular: regular rate and rhythm, other (no rubs / murmurs) Gastrointestinal: hypoactive bowel sounds, soft, non-tender, non-distended, other (RLQ & LUQ stomas with colostomy bags) Integumentary: decubitus ulcer (sacral; stage 4 s/p surgical debridement), other (no rash; no cellulitis; poor turgor) Extremities: no cyanosis, pulses normal, no ischemia or petechiae, edema (1+ bilaterally) Neurologic: pupils equal and round, unable to assess, other (encephalopathic) Psychiatric: other (unable to assess) CBC and BMP: 01/03/17 05:00 01/07/17 06:00 ABG, PT/INR, D-dimer: ABG POC ABG pH 7.503 (7.35-7.45) H 12/19/16 09:36 ABG pH 7.450 pH Units (7.350-7.450) 12/05/16 Unknown POC ABG pCO2 30.1 (35-45) L 12/19/16 09:36 ABG pCO2 29.6 mm Hg 12/05/16 Unknown POC ABG pO2 85 (80-105) 12/19/16 09:36 ABG pO2 75.2 mm Hg (80.0-90.0) L 12/05/16 Unknown POC ABG HCO3 23.6 12/19/16 09:36 POC ABG Total CO2 25 12/19/16 09:36 POC ABG O2 Sat 97 12/19/16 09:36 ABG O2 Saturation 96.8 % (95.0-99.0) 12/05/16 Unknown PT/INR, D-dimer PT 16.1 Sec. (12.2-14.9) H 12/28/16 08:30 INR 1.23 (0.87-1.13) H 12/28/16 08:30 Abnormal lab findings: Abnormal Labs 09/03/16 09/03/16 09/03/16 00:03 00:10 00:10 WBC 13.9 H RBC 5.95 H Hgb Hct 44.0 H MCV 74 L MCH 22 L MCHC RDW 17.5 H Plt Count Lymph % (Auto) [place] % (Auto) Lymph # [place] # Baso # Seg Neutrophils % Seg Neuts % (Manual) Lymphocytes % (Manual) 54.0 H Monocytes % (Manual) Eosinophils % (Manual) Basophils % (Manual) Nucleated RBC % Seg Neutrophils # Seg Neutrophils # Man Lymphocytes # (Manual) 7.5 H Monocytes # (Manual) Eosinophils # (Manual) Basophils # (Manual) PT INR Fibrinogen dRVVT Confirm Interp Factor V Activity POC ABG pH POC ABG pCO2 POC ABG pO2 ABG pO2 ABG HCO3 ABG Base Excess ABG Hemoglobin Oxyhemoglobin Sodium Potassium 2.8 L* Chloride Carbon Dioxide 21 L BUN Creatinine 1.7 H Glucose 159 H POC Glucose 177 H Lactic Acid Calcium Phosphorus Magnesium Direct Bilirubin AST ALT Alkaline Phosphatase Lactate Dehydrogenase Troponin T C-Reactive Protein Total Protein Albumin Prealbumin Triglycerides Cholesterol LDL Cholesterol Direct HDL Cholesterol Urine pH Urine WBC (Auto) Urine Creatinine Urine Total Protein Fluid Total Protein Vancomycin Trough Rheumatoid Factor Complement C4 Miscellaneous Test Crossmatch 09/03/16 09/03/16 09/03/16 12:12 15:07 16:20 WBC RBC Hgb Hct MCV MCH MCHC RDW Plt Count Lymph % (Auto) [place] % (Auto) Lymph # [place] # Baso # Seg Neutrophils % Seg Neuts % (Manual) Lymphocytes % (Manual) Monocytes % (Manual) Eosinophils % (Manual) Basophils % (Manual) Nucleated RBC % Seg Neutrophils # Seg Neutrophils # Man Lymphocytes # (Manual) Monocytes # (Manual) Eosinophils # (Manual) Basophils # (Manual) PT INR Fibrinogen dRVVT Confirm Interp Factor V Activity POC ABG pH 7.452 H POC ABG pCO2 POC ABG pO2 ABG pO2 ABG HCO3 ABG Base Excess ABG Hemoglobin Oxyhemoglobin Sodium Potassium Chloride Carbon Dioxide BUN Creatinine Glucose POC Glucose 178 H Lactic Acid Calcium Phosphorus 2.20 L Magnesium 1.60 L Direct Bilirubin AST ALT Alkaline Phosphatase Lactate Dehydrogenase Troponin T C-Reactive Protein Total Protein Albumin Prealbumin Triglycerides Cholesterol LDL Cholesterol Direct HDL Cholesterol Urine pH Urine WBC (Auto) Urine Creatinine Urine Total Protein Fluid Total Protein Vancomycin Trough Rheumatoid Factor Complement C4 Miscellaneous Test Crossmatch 09/03/16 09/03/16 09/03/16 17:57 17:58 23:50 WBC RBC Hgb Hct MCV MCH MCHC RDW Plt Count Lymph % (Auto) [place] % (Auto) Lymph # [place] # Baso # Seg Neutrophils % Seg Neuts % (Manual) Lymphocytes % (Manual) Monocytes % (Manual) Eosinophils % (Manual) Basophils % (Manual) Nucleated RBC % Seg Neutrophils # Seg Neutrophils # Man Lymphocytes # (Manual) Monocytes # (Manual) Eosinophils # (Manual) Basophils # (Manual) PT INR Fibrinogen dRVVT Confirm Interp Factor V Activity POC ABG pH POC ABG pCO2 POC ABG pO2 ABG pO2 ABG HCO3 ABG Base Excess ABG Hemoglobin Oxyhemoglobin Sodium Potassium Chloride Carbon Dioxide BUN Creatinine Glucose POC Glucose 162 H 145 H Lactic Acid Calcium Phosphorus 2.30 L Magnesium Direct Bilirubin AST ALT Alkaline Phosphatase Lactate Dehydrogenase Troponin T C-Reactive Protein Total Protein Albumin Prealbumin Triglycerides Cholesterol LDL Cholesterol Direct HDL Cholesterol Urine pH Urine WBC (Auto) Urine Creatinine Urine Total Protein Fluid Total Protein Vancomycin Trough Rheumatoid Factor Complement C4 Miscellaneous Test Crossmatch 09/04/16 09/04/16 09/04/16 03:31 03:31 05:42 WBC RBC Hgb 9.7 L D Hct MCV 72 L MCH 23 L MCHC RDW 17.5 H Plt Count Lymph % (Auto) 11.1 L [place] % (Auto) Lymph # [place] # Baso # Seg Neutrophils % 84.3 H Seg Neuts % (Manual) Lymphocytes % (Manual) Monocytes % (Manual) Eosinophils % (Manual) Basophils % (Manual) Nucleated RBC % Seg Neutrophils # 8.9 H Seg Neutrophils # Man Lymphocytes # (Manual) Monocytes # (Manual) Eosinophils # (Manual) Basophils # (Manual) PT INR Fibrinogen dRVVT Confirm Interp Factor V Activity POC ABG pH POC ABG pCO2 POC ABG pO2 ABG pO2 ABG HCO3 ABG Base Excess ABG Hemoglobin Oxyhemoglobin Sodium 135 L Potassium 2.9 L* Chloride 97.2 L Carbon Dioxide 19 L BUN Creatinine 1.7 H Glucose 170 H POC Glucose 152 H Lactic Acid Calcium Phosphorus Magnesium Direct Bilirubin AST ALT Alkaline Phosphatase Lactate Dehydrogenase Troponin T C-Reactive Protein Total Protein Albumin Prealbumin Triglycerides 160 H Cholesterol LDL Cholesterol Direct HDL Cholesterol 31 L Urine pH Urine WBC (Auto) Urine Creatinine Urine Total Protein Fluid Total Protein Vancomycin Trough Rheumatoid Factor Complement C4 Miscellaneous Test Crossmatch 09/04/16 09/04/16 09/04/16 11:34 17:46 23:29 WBC RBC Hgb Hct MCV MCH MCHC RDW Plt Count Lymph % (Auto) [place] % (Auto) Lymph # [place] # Baso # Seg Neutrophils % Seg Neuts % (Manual) Lymphocytes % (Manual) Monocytes % (Manual) Eosinophils % (Manual) Basophils % (Manual) Nucleated RBC % Seg Neutrophils # Seg Neutrophils # Man Lymphocytes # (Manual) Monocytes # (Manual) Eosinophils # (Manual) Basophils # (Manual) PT INR Fibrinogen dRVVT Confirm Interp Factor V Activity POC ABG pH POC ABG pCO2 POC ABG pO2 ABG pO2 ABG HCO3 ABG Base Excess ABG Hemoglobin Oxyhemoglobin Sodium Potassium Chloride Carbon Dioxide BUN Creatinine Glucose POC Glucose 165 H 210 H 139 H Lactic Acid Calcium Phosphorus Magnesium Direct Bilirubin AST ALT Alkaline Phosphatase Lactate Dehydrogenase Troponin T C-Reactive Protein Total Protein Albumin Prealbumin Triglycerides Cholesterol LDL Cholesterol Direct HDL Cholesterol Urine pH Urine WBC (Auto) Urine Creatinine Urine Total Protein Fluid Total Protein Vancomycin Trough Rheumatoid Factor Complement C4 Miscellaneous Test Crossmatch 09/05/16 09/05/16 09/05/16 04:05 04:05 05:38 WBC RBC Hgb Hct MCV 76 L D MCH 23 L MCHC RDW 17.8 H Plt Count Lymph % (Auto) [place] % (Auto) Lymph # [place] # Baso # Seg Neutrophils % Seg Neuts % (Manual) Lymphocytes % (Manual) Monocytes % (Manual) Eosinophils % (Manual) Basophils % (Manual) Nucleated RBC % Seg Neutrophils # Seg Neutrophils # Man Lymphocytes # (Manual) Monocytes # (Manual) Eosinophils # (Manual) Basophils # (Manual) PT INR Fibrinogen dRVVT Confirm Interp Factor V Activity POC ABG pH POC ABG pCO2 POC ABG pO2 ABG pO2 ABG HCO3 ABG Base Excess ABG Hemoglobin Oxyhemoglobin Sodium 134 L Potassium Chloride Carbon Dioxide 18 L BUN Creatinine 1.8 H Glucose 192 H POC Glucose 175 H Lactic Acid Calcium Phosphorus Magnesium Direct Bilirubin AST ALT Alkaline Phosphatase Lactate Dehydrogenase Troponin T C-Reactive Protein Total Protein Albumin Prealbumin Triglycerides Cholesterol LDL Cholesterol Direct HDL Cholesterol Urine pH Urine WBC (Auto) Urine Creatinine Urine Total Protein Fluid Total Protein Vancomycin Trough Rheumatoid Factor Complement C4 Miscellaneous Test Crossmatch 09/05/16 09/05/16 09/05/16 11:38 17:48 23:22 WBC RBC Hgb Hct MCV MCH MCHC RDW Plt Count Lymph % (Auto) [place] % (Auto) Lymph # [place] # Baso # Seg Neutrophils % Seg Neuts % (Manual) Lymphocytes % (Manual) Monocytes % (Manual) Eosinophils % (Manual) Basophils % (Manual) Nucleated RBC % Seg Neutrophils # Seg Neutrophils # Man Lymphocytes # (Manual) Monocytes # (Manual) Eosinophils # (Manual) Basophils # (Manual) PT INR Fibrinogen dRVVT Confirm Interp Factor V Activity POC ABG pH POC ABG pCO2 POC ABG pO2 ABG pO2 ABG HCO3 ABG Base Excess ABG Hemoglobin Oxyhemoglobin Sodium Potassium Chloride Carbon Dioxide BUN Creatinine Glucose POC Glucose 164 H 186 H 195 H Lactic Acid Calcium Phosphorus Magnesium Direct Bilirubin AST ALT Alkaline Phosphatase Lactate Dehydrogenase Troponin T C-Reactive Protein Total Protein Albumin Prealbumin Triglycerides Cholesterol LDL Cholesterol Direct HDL Cholesterol Urine pH Urine WBC (Auto) Urine Creatinine Urine Total Protein Fluid Total Protein Vancomycin Trough Rheumatoid Factor Complement C4 Miscellaneous Test Crossmatch 09/06/16 09/06/16 09/06/16 04:12 05:59 07:32 WBC RBC Hgb Hct MCV MCH MCHC RDW Plt Count Lymph % (Auto) [place] % (Auto) Lymph # [place] # Baso # Seg Neutrophils % Seg Neuts % (Manual) Lymphocytes % (Manual) Monocytes % (Manual) Eosinophils % (Manual) Basophils % (Manual) Nucleated RBC % Seg Neutrophils # Seg Neutrophils # Man Lymphocytes # (Manual) Monocytes # (Manual) Eosinophils # (Manual) Basophils # (Manual) PT INR Fibrinogen dRVVT Confirm Interp Factor V Activity POC ABG pH 7.514 H POC ABG pCO2 29.1 L POC ABG pO2 72 L ABG pO2 ABG HCO3 ABG Base Excess ABG Hemoglobin Oxyhemoglobin Sodium 133 L Potassium 3.4 L Chloride 94.9 L Carbon Dioxide 19 L BUN 30 H Creatinine 2.1 H Glucose 139 H POC Glucose 146 H Lactic Acid Calcium Phosphorus Magnesium Direct Bilirubin AST ALT Alkaline Phosphatase Lactate Dehydrogenase Troponin T C-Reactive Protein Total Protein Albumin Prealbumin Triglycerides Cholesterol LDL Cholesterol Direct HDL Cholesterol Urine pH Urine WBC (Auto) Urine Creatinine Urine Total Protein Fluid Total Protein Vancomycin Trough Rheumatoid Factor Complement C4 Miscellaneous Test Crossmatch 09/06/16 09/06/16 09/06/16 11:57 17:58 19:02 WBC RBC Hgb Hct MCV MCH MCHC RDW Plt Count Lymph % (Auto) [place] % (Auto) Lymph # [place] # Baso # Seg Neutrophils % Seg Neuts % (Manual) Lymphocytes % (Manual) Monocytes % (Manual) Eosinophils % (Manual) Basophils % (Manual) Nucleated RBC % Seg Neutrophils # Seg Neutrophils # Man Lymphocytes # (Manual) Monocytes # (Manual) Eosinophils # (Manual) Basophils # (Manual) PT INR Fibrinogen dRVVT Confirm Interp Factor V Activity POC ABG pH 7.465 H POC ABG pCO2 32.0 L POC ABG pO2 ABG pO2 ABG HCO3 ABG Base Excess ABG Hemoglobin Oxyhemoglobin Sodium Potassium Chloride Carbon Dioxide BUN Creatinine Glucose POC Glucose 165 H 160 H Lactic Acid Calcium Phosphorus Magnesium Direct Bilirubin AST ALT Alkaline Phosphatase Lactate Dehydrogenase Troponin T C-Reactive Protein Total Protein Albumin Prealbumin Triglycerides Cholesterol LDL Cholesterol Direct HDL Cholesterol Urine pH Urine WBC (Auto) Urine Creatinine Urine Total Protein Fluid Total Protein Vancomycin Trough Rheumatoid Factor Complement C4 Miscellaneous Test Crossmatch 09/06/16 09/07/16 09/07/16 23:45 02:47 02:47 WBC RBC Hgb Hct MCV MCH MCHC RDW Plt Count Lymph % (Auto) [place] % (Auto) Lymph # [place] # Baso # Seg Neutrophils % Seg Neuts % (Manual) Lymphocytes % (Manual) Monocytes % (Manual) Eosinophils % (Manual) Basophils % (Manual) Nucleated RBC % Seg Neutrophils # Seg Neutrophils # Man Lymphocytes # (Manual) Monocytes # (Manual) Eosinophils # (Manual) Basophils # (Manual) PT INR Fibrinogen dRVVT Confirm Interp Factor V Activity POC ABG pH POC ABG pCO2 POC ABG pO2 ABG pO2 ABG HCO3 ABG Base Excess ABG Hemoglobin Oxyhemoglobin Sodium Potassium Chloride Carbon Dioxide BUN Creatinine Glucose POC Glucose 204 H Lactic Acid Calcium Phosphorus Magnesium Direct Bilirubin AST ALT Alkaline Phosphatase Lactate Dehydrogenase Troponin T C-Reactive Protein Total Protein Albumin Prealbumin Triglycerides Cholesterol LDL Cholesterol Direct HDL Cholesterol Urine pH Urine WBC (Auto) 68.0 H Urine Creatinine 106.1 H Urine Total Protein Fluid Total Protein Vancomycin Trough Rheumatoid Factor Complement C4 Miscellaneous Test Crossmatch 09/07/16 09/07/16 09/07/16 04:50 06:19 06:39 WBC RBC Hgb Hct MCV MCH MCHC RDW Plt Count Lymph % (Auto) [place] % (Auto) Lymph # [place] # Baso # Seg Neutrophils % Seg Neuts % (Manual) Lymphocytes % (Manual) Monocytes % (Manual) Eosinophils % (Manual) Basophils % (Manual) Nucleated RBC % Seg Neutrophils # Seg Neutrophils # Man Lymphocytes # (Manual) Monocytes # (Manual) Eosinophils # (Manual) Basophils # (Manual) PT INR Fibrinogen dRVVT Confirm Interp Factor V Activity POC ABG pH 7.457 H POC ABG pCO2 32.1 L POC ABG pO2 76 L ABG pO2 ABG HCO3 ABG Base Excess ABG Hemoglobin Oxyhemoglobin Sodium 132 L Potassium Chloride 94.7 L Carbon Dioxide BUN 53 H Creatinine 2.9 H Glucose 151 H POC Glucose 149 H Lactic Acid Calcium Phosphorus Magnesium Direct Bilirubin AST ALT Alkaline Phosphatase Lactate Dehydrogenase Troponin T C-Reactive Protein Total Protein Albumin Prealbumin Triglycerides Cholesterol LDL Cholesterol Direct HDL Cholesterol Urine pH Urine WBC (Auto) Urine Creatinine Urine Total Protein Fluid Total Protein Vancomycin Trough Rheumatoid Factor Complement C4 Miscellaneous Test Crossmatch 09/07/16 09/07/16 09/07/16 09:20 11:43 11:43 WBC 19.4 H RBC Hgb 8.3 L Hct 26.4 L D MCV 72 L D MCH 22 L MCHC RDW 17.9 H Plt Count Lymph % (Auto) 8.5 L [place] % (Auto) Lymph # [place] # 1.0 H Baso # Seg Neutrophils % 85.8 H Seg Neuts % (Manual) Lymphocytes % (Manual) Monocytes % (Manual) Eosinophils % (Manual) Basophils % (Manual) Nucleated RBC % Seg Neutrophils # 16.6 H Seg Neutrophils # Man Lymphocytes # (Manual) Monocytes # (Manual) Eosinophils # (Manual) Basophils # (Manual) PT INR Fibrinogen dRVVT Confirm Interp Factor V Activity POC ABG pH POC ABG pCO2 POC ABG pO2 ABG pO2 ABG HCO3 ABG Base Excess ABG Hemoglobin Oxyhemoglobin Sodium 134 L Potassium Chloride 97.2 L Carbon Dioxide 20 L BUN 58 H Creatinine 2.9 H Glucose 147 H POC Glucose Lactic Acid Calcium Phosphorus 2.40 L Magnesium 2.40 H Direct Bilirubin AST ALT Alkaline Phosphatase Lactate Dehydrogenase Troponin T C-Reactive Protein Total Protein 5.8 L Albumin 2.2 L Prealbumin Triglycerides Cholesterol LDL Cholesterol Direct HDL Cholesterol Urine pH Urine WBC (Auto) Urine Creatinine Urine Total Protein Fluid Total Protein Vancomycin Trough Rheumatoid Factor Complement C4 58 H Miscellaneous Test Crossmatch 09/07/16 09/07/16 09/07/16 11:50 16:00 17:31 WBC RBC Hgb Hct MCV MCH MCHC RDW Plt Count Lymph % (Auto) [place] % (Auto) Lymph # [place] # Baso # Seg Neutrophils % Seg Neuts % (Manual) Lymphocytes % (Manual) Monocytes % (Manual) Eosinophils % (Manual) Basophils % (Manual) Nucleated RBC % Seg Neutrophils # Seg Neutrophils # Man Lymphocytes # (Manual) Monocytes # (Manual) Eosinophils # (Manual) Basophils # (Manual) PT INR Fibrinogen dRVVT Confirm Interp Factor V Activity POC ABG pH POC ABG pCO2 POC ABG pO2 158 H ABG pO2 ABG HCO3 ABG Base Excess ABG Hemoglobin Oxyhemoglobin Sodium Potassium Chloride Carbon Dioxide BUN Creatinine Glucose POC Glucose 175 H Lactic Acid Calcium Phosphorus Magnesium Direct Bilirubin AST ALT Alkaline Phosphatase Lactate Dehydrogenase Troponin T C-Reactive Protein Total Protein Albumin Prealbumin Triglycerides Cholesterol LDL Cholesterol Direct HDL Cholesterol Urine pH Urine WBC (Auto) Urine Creatinine 66.3 H Urine Total Protein Fluid Total Protein Vancomycin Trough Rheumatoid Factor Complement C4 Miscellaneous Test Crossmatch 09/07/16 09/08/16 09/08/16 23:50 05:46 06:18 WBC 17.8 H RBC 3.58 L Hgb 8.1 L Hct 25.5 L MCV 71 L MCH 23 L MCHC RDW 18.4 H Plt Count Lymph % (Auto) [place] % (Auto) Lymph # [place] # Baso # Seg Neutrophils % Seg Neuts % (Manual) 92.0 H Lymphocytes % (Manual) 6.0 L Monocytes % (Manual) Eosinophils % (Manual) Basophils % (Manual) Nucleated RBC % Seg Neutrophils # Seg Neutrophils # Man 16.4 H Lymphocytes # (Manual) 1.1 L Monocytes # (Manual) Eosinophils # (Manual) Basophils # (Manual) PT INR Fibrinogen dRVVT Confirm Interp Factor V Activity POC ABG pH POC ABG pCO2 34.3 L POC ABG pO2 71 L ABG pO2 ABG HCO3 ABG Base Excess ABG Hemoglobin Oxyhemoglobin Sodium Potassium Chloride Carbon Dioxide BUN Creatinine Glucose POC Glucose 216 H Lactic Acid Calcium Phosphorus Magnesium Direct Bilirubin AST ALT Alkaline Phosphatase Lactate Dehydrogenase Troponin T C-Reactive Protein Total Protein Albumin Prealbumin Triglycerides Cholesterol LDL Cholesterol Direct HDL Cholesterol Urine pH Urine WBC (Auto) Urine Creatinine Urine Total Protein Fluid Total Protein Vancomycin Trough Rheumatoid Factor Complement C4 Miscellaneous Test Crossmatch 09/08/16 09/08/16 09/08/16 06:18 06:51 10:55 WBC RBC Hgb Hct MCV MCH MCHC RDW Plt Count Lymph % (Auto) [place] % (Auto) Lymph # [place] # Baso # Seg Neutrophils % Seg Neuts % (Manual) Lymphocytes % (Manual) Monocytes % (Manual) Eosinophils % (Manual) Basophils % (Manual) Nucleated RBC % Seg Neutrophils # Seg Neutrophils # Man Lymphocytes # (Manual) Monocytes # (Manual) Eosinophils # (Manual) Basophils # (Manual) PT INR Fibrinogen dRVVT Confirm Interp Factor V Activity POC ABG pH POC ABG pCO2 POC ABG pO2 ABG pO2 ABG HCO3 ABG Base Excess ABG Hemoglobin Oxyhemoglobin Sodium 133 L Potassium Chloride 96.9 L Carbon Dioxide 20 L BUN 63 H Creatinine 2.7 H Glucose 195 H POC Glucose 204 H 169 H Lactic Acid Calcium Phosphorus Magnesium Direct Bilirubin AST ALT Alkaline Phosphatase Lactate Dehydrogenase Troponin T C-Reactive Protein Total Protein Albumin Prealbumin Triglycerides Cholesterol LDL Cholesterol Direct HDL Cholesterol Urine pH Urine WBC (Auto) Urine Creatinine Urine Total Protein Fluid Total Protein Vancomycin Trough Rheumatoid Factor Complement C4 Miscellaneous Test Crossmatch 09/08/16 09/08/16 09/08/16 11:48 11:48 11:48 WBC RBC Hgb Hct MCV MCH MCHC RDW Plt Count Lymph % (Auto) [place] % (Auto) Lymph # [place] # Baso # Seg Neutrophils % Seg Neuts % (Manual) Lymphocytes % (Manual) Monocytes % (Manual) Eosinophils % (Manual) Basophils % (Manual) Nucleated RBC % Seg Neutrophils # Seg Neutrophils # Man Lymphocytes # (Manual) Monocytes # (Manual) Eosinophils # (Manual) Basophils # (Manual) PT INR Fibrinogen 750 H dRVVT Confirm Interp Factor V Activity POC ABG pH POC ABG pCO2 POC ABG pO2 ABG pO2 ABG HCO3 ABG Base Excess ABG Hemoglobin Oxyhemoglobin Sodium Potassium Chloride Carbon Dioxide BUN Creatinine Glucose POC Glucose Lactic Acid Calcium Phosphorus Magnesium Direct Bilirubin AST ALT Alkaline Phosphatase Lactate Dehydrogenase Troponin T C-Reactive Protein 15.70 H Total Protein Albumin Prealbumin Triglycerides Cholesterol LDL Cholesterol Direct HDL Cholesterol Urine pH Urine WBC (Auto) Urine Creatinine Urine Total Protein Fluid Total Protein Vancomycin Trough Rheumatoid Factor 24 H Complement C4 Miscellaneous Test Crossmatch 09/08/16 09/08/16 09/09/16 15:35 18:25 00:24 WBC RBC Hgb Hct MCV MCH MCHC RDW Plt Count Lymph % (Auto) [place] % (Auto) Lymph # [place] # Baso # Seg Neutrophils % Seg Neuts % (Manual) Lymphocytes % (Manual) Monocytes % (Manual) Eosinophils % (Manual) Basophils % (Manual) Nucleated RBC % Seg Neutrophils # Seg Neutrophils # Man Lymphocytes # (Manual) Monocytes # (Manual) Eosinophils # (Manual) Basophils # (Manual) PT INR Fibrinogen dRVVT Confirm Interp Factor V Activity 182 H POC ABG pH POC ABG pCO2 POC ABG pO2 ABG pO2 ABG HCO3 ABG Base Excess ABG Hemoglobin Oxyhemoglobin Sodium Potassium Chloride Carbon Dioxide BUN Creatinine Glucose POC Glucose 184 H 216 H Lactic Acid Calcium Phosphorus Magnesium Direct Bilirubin AST ALT Alkaline Phosphatase Lactate Dehydrogenase Troponin T C-Reactive Protein Total Protein Albumin Prealbumin Triglycerides Cholesterol LDL Cholesterol Direct HDL Cholesterol Urine pH Urine WBC (Auto) Urine Creatinine Urine Total Protein Fluid Total Protein Vancomycin Trough Rheumatoid Factor Complement C4 Miscellaneous Test Crossmatch 09/09/16 09/09/16 09/09/16 03:00 03:00 04:04 WBC 27.9 H RBC Hgb 8.7 L Hct 28.1 L MCV 72 L MCH 22 L MCHC RDW 18.4 H Plt Count 485 H Lymph % (Auto) [place] % (Auto) Lymph # [place] # Baso # Seg Neutrophils % Seg Neuts % (Manual) 77.0 H Lymphocytes % (Manual) 9.0 L Monocytes % (Manual) Eosinophils % (Manual) Basophils % (Manual) Nucleated RBC % Seg Neutrophils # Seg Neutrophils # Man 21.5 H Lymphocytes # (Manual) Monocytes # (Manual) 2.0 H Eosinophils # (Manual) Basophils # (Manual) PT INR Fibrinogen dRVVT Confirm Interp Factor V Activity POC ABG pH POC ABG pCO2 POC ABG pO2 121 H ABG pO2 ABG HCO3 ABG Base Excess ABG Hemoglobin Oxyhemoglobin Sodium 135 L Potassium Chloride 96.3 L Carbon Dioxide 21 L BUN 83 H Creatinine 3.0 H Glucose 135 H POC Glucose Lactic Acid Calcium Phosphorus Magnesium Direct Bilirubin AST ALT Alkaline Phosphatase Lactate Dehydrogenase Troponin T C-Reactive Protein Total Protein Albumin Prealbumin Triglycerides Cholesterol LDL Cholesterol Direct HDL Cholesterol Urine pH Urine WBC (Auto) Urine Creatinine Urine Total Protein Fluid Total Protein Vancomycin Trough Rheumatoid Factor Complement C4 Miscellaneous Test Crossmatch 09/09/16 09/09/16 09/09/16 05:41 11:55 14:13 WBC RBC Hgb Hct MCV MCH MCHC RDW Plt Count Lymph % (Auto) [place] % (Auto) Lymph # [place] # Baso # Seg Neutrophils % Seg Neuts % (Manual) Lymphocytes % (Manual) Monocytes % (Manual) Eosinophils % (Manual) Basophils % (Manual) Nucleated RBC % Seg Neutrophils # Seg Neutrophils # Man Lymphocytes # (Manual) Monocytes # (Manual) Eosinophils # (Manual) Basophils # (Manual) PT INR Fibrinogen dRVVT Confirm Interp Factor V Activity POC ABG pH POC ABG pCO2 POC ABG pO2 ABG pO2 ABG HCO3 ABG Base Excess ABG Hemoglobin Oxyhemoglobin Sodium Potassium Chloride Carbon Dioxide BUN Creatinine Glucose POC Glucose 155 H 186 H Lactic Acid Calcium Phosphorus Magnesium Direct Bilirubin AST ALT Alkaline Phosphatase Lactate Dehydrogenase Troponin T C-Reactive Protein Total Protein Albumin Prealbumin Triglycerides Cholesterol LDL Cholesterol Direct HDL Cholesterol Urine pH Urine WBC (Auto) 25.0 H Urine Creatinine Urine Total Protein Fluid Total Protein Vancomycin Trough Rheumatoid Factor Complement C4 Miscellaneous Test Crossmatch 09/09/16 09/09/16 09/10/16 17:33 23:13 05:09 WBC RBC Hgb Hct MCV MCH MCHC RDW Plt Count Lymph % (Auto) [place] % (Auto) Lymph # [place] # Baso # Seg Neutrophils % Seg Neuts % (Manual) Lymphocytes % (Manual) Monocytes % (Manual) Eosinophils % (Manual) Basophils % (Manual) Nucleated RBC % Seg Neutrophils # Seg Neutrophils # Man Lymphocytes # (Manual) Monocytes # (Manual) Eosinophils # (Manual) Basophils # (Manual) PT INR Fibrinogen dRVVT Confirm Interp Factor V Activity POC ABG pH POC ABG pCO2 POC ABG pO2 74 L ABG pO2 ABG HCO3 ABG Base Excess ABG Hemoglobin Oxyhemoglobin Sodium Potassium Chloride Carbon Dioxide BUN Creatinine Glucose POC Glucose 211 H 215 H Lactic Acid Calcium Phosphorus Magnesium Direct Bilirubin AST ALT Alkaline Phosphatase Lactate Dehydrogenase Troponin T C-Reactive Protein Total Protein Albumin Prealbumin Triglycerides Cholesterol LDL Cholesterol Direct HDL Cholesterol Urine pH Urine WBC (Auto) Urine Creatinine Urine Total Protein Fluid Total Protein Vancomycin Trough Rheumatoid Factor Complement C4 Miscellaneous Test Crossmatch 09/10/16 09/10/16 09/10/16 05:17 05:17 11:31 WBC 15.8 H RBC 3.25 L Hgb 7.3 L Hct 22.9 L MCV 71 L MCH 23 L MCHC RDW 18.4 H Plt Count Lymph % (Auto) [place] % (Auto) Lymph # [place] # Baso # Seg Neutrophils % Seg Neuts % (Manual) 91.0 H Lymphocytes % (Manual) 4.0 L Monocytes % (Manual) Eosinophils % (Manual) Basophils % (Manual) Nucleated RBC % Seg Neutrophils # Seg Neutrophils # Man 14.4 H Lymphocytes # (Manual) 0.6 L Monocytes # (Manual) Eosinophils # (Manual) Basophils # (Manual) PT INR Fibrinogen dRVVT Confirm Interp Factor V Activity POC ABG pH POC ABG pCO2 POC ABG pO2 ABG pO2 ABG HCO3 ABG Base Excess ABG Hemoglobin Oxyhemoglobin Sodium Potassium Chloride Carbon Dioxide 21 L BUN 93 H Creatinine 2.9 H Glucose 146 H POC Glucose 188 H Lactic Acid Calcium 8.1 L Phosphorus Magnesium Direct Bilirubin AST ALT Alkaline Phosphatase Lactate Dehydrogenase Troponin T C-Reactive Protein Total Protein Albumin Prealbumin Triglycerides Cholesterol LDL Cholesterol Direct HDL Cholesterol Urine pH Urine WBC (Auto) Urine Creatinine Urine Total Protein Fluid Total Protein Vancomycin Trough Rheumatoid Factor Complement C4 Miscellaneous Test Crossmatch 09/10/16 09/10/16 09/10/16 13:17 17:20 23:32 WBC RBC Hgb Hct MCV MCH MCHC RDW Plt Count Lymph % (Auto) [place] % (Auto) Lymph # [place] # Baso # Seg Neutrophils % Seg Neuts % (Manual) Lymphocytes % (Manual) Monocytes % (Manual) Eosinophils % (Manual) Basophils % (Manual) Nucleated RBC % Seg Neutrophils # Seg Neutrophils # Man Lymphocytes # (Manual) Monocytes # (Manual) Eosinophils # (Manual) Basophils # (Manual) PT INR Fibrinogen dRVVT Confirm Interp Factor V Activity POC ABG pH POC ABG pCO2 POC ABG pO2 ABG pO2 ABG HCO3 ABG Base Excess ABG Hemoglobin Oxyhemoglobin Sodium Potassium Chloride Carbon Dioxide BUN Creatinine Glucose POC Glucose 199 H 186 H Lactic Acid Calcium Phosphorus Magnesium Direct Bilirubin AST ALT Alkaline Phosphatase Lactate Dehydrogenase Troponin T C-Reactive Protein Total Protein Albumin Prealbumin Triglycerides Cholesterol LDL Cholesterol Direct HDL Cholesterol Urine pH Urine WBC (Auto) Urine Creatinine Urine Total Protein Fluid Total Protein Vancomycin Trough Rheumatoid Factor Complement C4 Miscellaneous Test Crossmatch See Detail 09/11/16 09/11/16 09/11/16 05:10 05:10 05:17 WBC 28.4 H RBC Hgb 9.2 L Hct 29.3 L D MCV 73 L MCH 23 L MCHC RDW 18.9 H Plt Count 452 H Lymph % (Auto) [place] % (Auto) Lymph # [place] # Baso # Seg Neutrophils % Seg Neuts % (Manual) 89.5 H Lymphocytes % (Manual) 2.0 L Monocytes % (Manual) Eosinophils % (Manual) Basophils % (Manual) Nucleated RBC % Seg Neutrophils # Seg Neutrophils # Man 25.4 H Lymphocytes # (Manual) 0.6 L Monocytes # (Manual) 1.3 H Eosinophils # (Manual) Basophils # (Manual) PT INR Fibrinogen dRVVT Confirm Interp Factor V Activity POC ABG pH POC ABG pCO2 POC ABG pO2 ABG pO2 ABG HCO3 ABG Base Excess ABG Hemoglobin Oxyhemoglobin Sodium 136 L Potassium Chloride Carbon Dioxide 18 L BUN 107 H Creatinine 2.6 H Glucose 187 H POC Glucose 230 H Lactic Acid Calcium 8.3 L Phosphorus Magnesium Direct Bilirubin AST ALT Alkaline Phosphatase Lactate Dehydrogenase Troponin T C-Reactive Protein Total Protein Albumin Prealbumin Triglycerides Cholesterol LDL Cholesterol Direct HDL Cholesterol Urine pH Urine WBC (Auto) Urine Creatinine Urine Total Protein Fluid Total Protein Vancomycin Trough Rheumatoid Factor Complement C4 Miscellaneous Test Crossmatch 09/11/16 09/11/16 09/11/16 05:55 12:02 17:32 WBC RBC Hgb Hct MCV MCH MCHC RDW Plt Count Lymph % (Auto) [place] % (Auto) Lymph # [place] # Baso # Seg Neutrophils % Seg Neuts % (Manual) Lymphocytes % (Manual) Monocytes % (Manual) Eosinophils % (Manual) Basophils % (Manual) Nucleated RBC % Seg Neutrophils # Seg Neutrophils # Man Lymphocytes # (Manual) Monocytes # (Manual) Eosinophils # (Manual) Basophils # (Manual) PT INR Fibrinogen dRVVT Confirm Interp Factor V Activity POC ABG pH POC ABG pCO2 33.8 L POC ABG pO2 ABG pO2 ABG HCO3 ABG Base Excess ABG Hemoglobin Oxyhemoglobin Sodium Potassium Chloride Carbon Dioxide BUN Creatinine Glucose POC Glucose 191 H 239 H Lactic Acid Calcium Phosphorus Magnesium Direct Bilirubin AST ALT Alkaline Phosphatase Lactate Dehydrogenase Troponin T C-Reactive Protein Total Protein Albumin Prealbumin Triglycerides Cholesterol LDL Cholesterol Direct HDL Cholesterol Urine pH Urine WBC (Auto) Urine Creatinine Urine Total Protein Fluid Total Protein Vancomycin Trough Rheumatoid Factor Complement C4 Miscellaneous Test Crossmatch 09/11/16 09/12/16 09/12/16 23:52 05:09 05:32 WBC RBC Hgb Hct MCV MCH MCHC RDW Plt Count Lymph % (Auto) [place] % (Auto) Lymph # [place] # Baso # Seg Neutrophils % Seg Neuts % (Manual) Lymphocytes % (Manual) Monocytes % (Manual) Eosinophils % (Manual) Basophils % (Manual) Nucleated RBC % Seg Neutrophils # Seg Neutrophils # Man Lymphocytes # (Manual) Monocytes # (Manual) Eosinophils # (Manual) Basophils # (Manual) PT INR Fibrinogen dRVVT Confirm Interp Factor V Activity POC ABG pH POC ABG pCO2 34.6 L POC ABG pO2 ABG pO2 ABG HCO3 ABG Base Excess ABG Hemoglobin Oxyhemoglobin Sodium Potassium Chloride Carbon Dioxide BUN Creatinine Glucose POC Glucose 265 H 184 H Lactic Acid Calcium Phosphorus Magnesium Direct Bilirubin AST ALT Alkaline Phosphatase Lactate Dehydrogenase Troponin T C-Reactive Protein Total Protein Albumin Prealbumin Triglycerides Cholesterol LDL Cholesterol Direct HDL Cholesterol Urine pH Urine WBC (Auto) Urine Creatinine Urine Total Protein Fluid Total Protein Vancomycin Trough Rheumatoid Factor Complement C4 Miscellaneous Test Crossmatch 09/12/16 09/12/16 09/12/16 06:45 06:45 07:22 WBC 31.7 H RBC 3.54 L Hgb 8.3 L Hct 25.9 L MCV 73 L MCH 23 L MCHC RDW 18.9 H Plt Count Lymph % (Auto) [place] % (Auto) Lymph # [place] # Baso # Seg Neutrophils % Seg Neuts % (Manual) 88.5 H Lymphocytes % (Manual) 4.5 L Monocytes % (Manual) Eosinophils % (Manual) Basophils % (Manual) Nucleated RBC % Seg Neutrophils # Seg Neutrophils # Man 28.1 H Lymphocytes # (Manual) Monocytes # (Manual) 1.0 H Eosinophils # (Manual) Basophils # (Manual) PT INR Fibrinogen dRVVT Confirm Interp Factor V Activity POC ABG pH POC ABG pCO2 POC ABG pO2 ABG pO2 ABG HCO3 ABG Base Excess ABG Hemoglobin Oxyhemoglobin Sodium Potassium Chloride Carbon Dioxide 20 L BUN 115 H Creatinine 2.7 H Glucose 165 H POC Glucose Lactic Acid Calcium 8.0 L Phosphorus Magnesium Direct Bilirubin AST ALT Alkaline Phosphatase Lactate Dehydrogenase Troponin T C-Reactive Protein Total Protein Albumin Prealbumin Triglycerides 217 H Cholesterol LDL Cholesterol Direct HDL Cholesterol Urine pH Urine WBC (Auto) Urine Creatinine Urine Total Protein Fluid Total Protein Vancomycin Trough Rheumatoid Factor Complement C4 Miscellaneous Test Crossmatch 09/12/16 09/12/16 09/12/16 07:22 09:59 12:21 WBC RBC Hgb Hct MCV MCH MCHC RDW Plt Count Lymph % (Auto) [place] % (Auto) Lymph # [place] # Baso # Seg Neutrophils % Seg Neuts % (Manual) Lymphocytes % (Manual) Monocytes % (Manual) Eosinophils % (Manual) Basophils % (Manual) Nucleated RBC % Seg Neutrophils # Seg Neutrophils # Man Lymphocytes # (Manual) Monocytes # (Manual) Eosinophils # (Manual) Basophils # (Manual) PT INR Fibrinogen dRVVT Confirm Interp Positive H Factor V Activity POC ABG pH POC ABG pCO2 POC ABG pO2 ABG pO2 ABG HCO3 ABG Base Excess ABG Hemoglobin Oxyhemoglobin Sodium Potassium Chloride Carbon Dioxide BUN Creatinine Glucose POC Glucose 224 H Lactic Acid Calcium Phosphorus Magnesium Direct Bilirubin AST ALT Alkaline Phosphatase Lactate Dehydrogenase Troponin T C-Reactive Protein 1.70 H Total Protein Albumin Prealbumin Triglycerides Cholesterol LDL Cholesterol Direct HDL Cholesterol Urine pH Urine WBC (Auto) Urine Creatinine Urine Total Protein Fluid Total Protein Vancomycin Trough Rheumatoid Factor Complement C4 Miscellaneous Test Crossmatch 09/12/16 09/12/16 09/13/16 16:51 23:28 04:00 WBC 45.0 H* RBC Hgb 9.4 L Hct MCV 75 L MCH 23 L MCHC RDW 19.0 H Plt Count 470 H Lymph % (Auto) [place] % (Auto) Lymph # [place] # Baso # Seg Neutrophils % Seg Neuts % (Manual) 89.0 H Lymphocytes % (Manual) 5.0 L Monocytes % (Manual) Eosinophils % (Manual) Basophils % (Manual) Nucleated RBC % Seg Neutrophils # Seg Neutrophils # Man 40.1 H Lymphocytes # (Manual) Monocytes # (Manual) Eosinophils # (Manual) Basophils # (Manual) PT INR Fibrinogen dRVVT Confirm Interp Factor V Activity POC ABG pH POC ABG pCO2 POC ABG pO2 ABG pO2 ABG HCO3 ABG Base Excess ABG Hemoglobin Oxyhemoglobin Sodium Potassium Chloride Carbon Dioxide BUN Creatinine Glucose POC Glucose 169 H 150 H Lactic Acid Calcium Phosphorus Magnesium Direct Bilirubin AST ALT Alkaline Phosphatase Lactate Dehydrogenase Troponin T C-Reactive Protein Total Protein Albumin Prealbumin Triglycerides Cholesterol LDL Cholesterol Direct HDL Cholesterol Urine pH Urine WBC (Auto) Urine Creatinine Urine Total Protein Fluid Total Protein Vancomycin Trough Rheumatoid Factor Complement C4 Miscellaneous Test Crossmatch 09/13/16 09/13/16 09/13/16 04:00 11:26 17:31 WBC RBC Hgb Hct MCV MCH MCHC RDW Plt Count Lymph % (Auto) [place] % (Auto) Lymph # [place] # Baso # Seg Neutrophils % Seg Neuts % (Manual) Lymphocytes % (Manual) Monocytes % (Manual) Eosinophils % (Manual) Basophils % (Manual) Nucleated RBC % Seg Neutrophils # Seg Neutrophils # Man Lymphocytes # (Manual) Monocytes # (Manual) Eosinophils # (Manual) Basophils # (Manual) PT INR Fibrinogen dRVVT Confirm Interp Factor V Activity POC ABG pH POC ABG pCO2 POC ABG pO2 ABG pO2 ABG HCO3 ABG Base Excess ABG Hemoglobin Oxyhemoglobin Sodium Potassium Chloride Carbon Dioxide 20 L BUN 116 H Creatinine 3.0 H Glucose 172 H POC Glucose 140 H 183 H Lactic Acid Calcium Phosphorus Magnesium Direct Bilirubin AST ALT Alkaline Phosphatase Lactate Dehydrogenase Troponin T C-Reactive Protein Total Protein 6.2 L Albumin 2.9 L Prealbumin Triglycerides Cholesterol LDL Cholesterol Direct HDL Cholesterol Urine pH Urine WBC (Auto) Urine Creatinine Urine Total Protein Fluid Total Protein Vancomycin Trough Rheumatoid Factor Complement C4 Miscellaneous Test Crossmatch 09/13/16 09/14/16 09/14/16 23:23 04:06 04:07 WBC 29.4 H RBC Hgb 8.9 L Hct 27.3 L MCV 75 L MCH 24 L MCHC RDW 19.1 H Plt Count Lymph % (Auto) [place] % (Auto) Lymph # [place] # Baso # Seg Neutrophils % Seg Neuts % (Manual) 84.0 H Lymphocytes % (Manual) 6.0 L Monocytes % (Manual) 9.0 H Eosinophils % (Manual) Basophils % (Manual) Nucleated RBC % Seg Neutrophils # Seg Neutrophils # Man 24.7 H Lymphocytes # (Manual) Monocytes # (Manual) 2.6 H Eosinophils # (Manual) Basophils # (Manual) PT INR Fibrinogen dRVVT Confirm Interp Factor V Activity POC ABG pH 7.342 L POC ABG pCO2 POC ABG pO2 116 H ABG pO2 ABG HCO3 ABG Base Excess ABG Hemoglobin Oxyhemoglobin Sodium Potassium Chloride Carbon Dioxide BUN Creatinine Glucose POC Glucose 154 H Lactic Acid Calcium Phosphorus Magnesium Direct Bilirubin AST ALT Alkaline Phosphatase Lactate Dehydrogenase Troponin T C-Reactive Protein Total Protein Albumin Prealbumin Triglycerides Cholesterol LDL Cholesterol Direct HDL Cholesterol Urine pH Urine WBC (Auto) Urine Creatinine Urine Total Protein Fluid Total Protein Vancomycin Trough Rheumatoid Factor Complement C4 Miscellaneous Test Crossmatch 09/14/16 09/14/16 09/14/16 04:07 05:29 12:19 WBC RBC Hgb Hct MCV MCH MCHC RDW Plt Count Lymph % (Auto) [place] % (Auto) Lymph # [place] # Baso # Seg Neutrophils % Seg Neuts % (Manual) Lymphocytes % (Manual) Monocytes % (Manual) Eosinophils % (Manual) Basophils % (Manual) Nucleated RBC % Seg Neutrophils # Seg Neutrophils # Man Lymphocytes # (Manual) Monocytes # (Manual) Eosinophils # (Manual) Basophils # (Manual) PT INR Fibrinogen dRVVT Confirm Interp Factor V Activity POC ABG pH POC ABG pCO2 POC ABG pO2 ABG pO2 ABG HCO3 ABG Base Excess ABG Hemoglobin Oxyhemoglobin Sodium 136 L Potassium Chloride Carbon Dioxide 18 L BUN 121 H Creatinine 2.8 H Glucose 214 H POC Glucose 239 H 181 H Lactic Acid Calcium Phosphorus Magnesium Direct Bilirubin AST ALT Alkaline Phosphatase Lactate Dehydrogenase Troponin T C-Reactive Protein Total Protein Albumin Prealbumin Triglycerides Cholesterol LDL Cholesterol Direct HDL Cholesterol Urine pH Urine WBC (Auto) Urine Creatinine Urine Total Protein Fluid Total Protein Vancomycin Trough Rheumatoid Factor Complement C4 Miscellaneous Test Crossmatch 09/14/16 09/14/16 09/15/16 18:12 23:37 05:00 WBC 26.1 H RBC 3.05 L Hgb 7.2 L Hct 22.9 L MCV 75 L MCH 24 L MCHC RDW 19.0 H Plt Count Lymph % (Auto) [place] % (Auto) Lymph # [place] # Baso # Seg Neutrophils % Seg Neuts % (Manual) Lymphocytes % (Manual) Monocytes % (Manual) Eosinophils % (Manual) Basophils % (Manual) Nucleated RBC % Seg Neutrophils # Seg Neutrophils # Man Lymphocytes # (Manual) Monocytes # (Manual) Eosinophils # (Manual) Basophils # (Manual) PT INR Fibrinogen dRVVT Confirm Interp Factor V Activity POC ABG pH POC ABG pCO2 POC ABG pO2 ABG pO2 ABG HCO3 ABG Base Excess ABG Hemoglobin Oxyhemoglobin Sodium Potassium Chloride Carbon Dioxide BUN Creatinine Glucose POC Glucose 266 H 154 H Lactic Acid Calcium Phosphorus Magnesium Direct Bilirubin AST ALT Alkaline Phosphatase Lactate Dehydrogenase Troponin T C-Reactive Protein Total Protein Albumin Prealbumin Triglycerides Cholesterol LDL Cholesterol Direct HDL Cholesterol Urine pH Urine WBC (Auto) Urine Creatinine Urine Total Protein Fluid Total Protein Vancomycin Trough Rheumatoid Factor Complement C4 Miscellaneous Test Crossmatch 09/15/16 09/15/16 09/15/16 05:00 05:17 12:45 WBC RBC Hgb Hct MCV MCH MCHC RDW Plt Count Lymph % (Auto) [place] % (Auto) Lymph # [place] # Baso # Seg Neutrophils % Seg Neuts % (Manual) Lymphocytes % (Manual) Monocytes % (Manual) Eosinophils % (Manual) Basophils % (Manual) Nucleated RBC % Seg Neutrophils # Seg Neutrophils # Man Lymphocytes # (Manual) Monocytes # (Manual) Eosinophils # (Manual) Basophils # (Manual) PT INR Fibrinogen dRVVT Confirm Interp Factor V Activity POC ABG pH POC ABG pCO2 POC ABG pO2 ABG pO2 ABG HCO3 ABG Base Excess ABG Hemoglobin Oxyhemoglobin Sodium Potassium 5.2 H Chloride Carbon Dioxide 18 L BUN 139 H Creatinine 3.7 H Glucose 227 H POC Glucose 226 H 244 H Lactic Acid Calcium 8.3 L Phosphorus Magnesium Direct Bilirubin AST ALT Alkaline Phosphatase Lactate Dehydrogenase Troponin T C-Reactive Protein Total Protein Albumin Prealbumin Triglycerides Cholesterol LDL Cholesterol Direct HDL Cholesterol Urine pH Urine WBC (Auto) Urine Creatinine Urine Total Protein Fluid Total Protein Vancomycin Trough Rheumatoid Factor Complement C4 Miscellaneous Test Crossmatch 09/15/16 09/15/16 09/15/16 14:32 17:33 23:35 WBC RBC Hgb Hct MCV MCH MCHC RDW Plt Count Lymph % (Auto) [place] % (Auto) Lymph # [place] # Baso # Seg Neutrophils % Seg Neuts % (Manual) Lymphocytes % (Manual) Monocytes % (Manual) Eosinophils % (Manual) Basophils % (Manual) Nucleated RBC % Seg Neutrophils # Seg Neutrophils # Man Lymphocytes # (Manual) Monocytes # (Manual) Eosinophils # (Manual) Basophils # (Manual) PT INR Fibrinogen dRVVT Confirm Interp Factor V Activity POC ABG pH POC ABG pCO2 27.7 L POC ABG pO2 120 H ABG pO2 ABG HCO3 ABG Base Excess ABG Hemoglobin Oxyhemoglobin Sodium Potassium Chloride Carbon Dioxide BUN Creatinine Glucose POC Glucose 232 H 167 H Lactic Acid Calcium Phosphorus Magnesium Direct Bilirubin AST ALT Alkaline Phosphatase Lactate Dehydrogenase Troponin T C-Reactive Protein Total Protein Albumin Prealbumin Triglycerides Cholesterol LDL Cholesterol Direct HDL Cholesterol Urine pH Urine WBC (Auto) Urine Creatinine Urine Total Protein Fluid Total Protein Vancomycin Trough Rheumatoid Factor Complement C4 Miscellaneous Test Crossmatch 09/16/16 09/16/16 09/16/16 03:58 10:27 10:27 WBC 19.0 H RBC 2.77 L Hgb 6.5 L Hct 20.9 L MCV 76 L MCH 23 L MCHC RDW 19.3 H Plt Count Lymph % (Auto) 11.0 L [place] % (Auto) Lymph # [place] # 1.1 H Baso # Seg Neutrophils % 82.5 H Seg Neuts % (Manual) Lymphocytes % (Manual) Monocytes % (Manual) Eosinophils % (Manual) Basophils % (Manual) Nucleated RBC % Seg Neutrophils # 15.7 H Seg Neutrophils # Man Lymphocytes # (Manual) Monocytes # (Manual) Eosinophils # (Manual) Basophils # (Manual) PT INR Fibrinogen dRVVT Confirm Interp Factor V Activity POC ABG pH POC ABG pCO2 POC ABG pO2 ABG pO2 ABG HCO3 ABG Base Excess ABG Hemoglobin Oxyhemoglobin Sodium Potassium Chloride 109.3 H Carbon Dioxide 18 L BUN 139 H Creatinine 4.1 H Glucose 144 H POC Glucose 146 H Lactic Acid Calcium 8.1 L Phosphorus Magnesium Direct Bilirubin AST ALT Alkaline Phosphatase Lactate Dehydrogenase Troponin T C-Reactive Protein Total Protein Albumin Prealbumin Triglycerides Cholesterol LDL Cholesterol Direct HDL Cholesterol Urine pH Urine WBC (Auto) Urine Creatinine Urine Total Protein Fluid Total Protein Vancomycin Trough Rheumatoid Factor Complement C4 Miscellaneous Test Crossmatch 09/16/16 09/16/16 09/16/16 12:04 12:10 13:55 WBC RBC Hgb Hct MCV MCH MCHC RDW Plt Count Lymph % (Auto) [place] % (Auto) Lymph # [place] # Baso # Seg Neutrophils % Seg Neuts % (Manual) Lymphocytes % (Manual) Monocytes % (Manual) Eosinophils % (Manual) Basophils % (Manual) Nucleated RBC % Seg Neutrophils # Seg Neutrophils # Man Lymphocytes # (Manual) Monocytes # (Manual) Eosinophils # (Manual) Basophils # (Manual) PT INR Fibrinogen dRVVT Confirm Interp Factor V Activity POC ABG pH POC ABG pCO2 32.9 L POC ABG pO2 ABG pO2 ABG HCO3 ABG Base Excess ABG Hemoglobin Oxyhemoglobin Sodium Potassium Chloride Carbon Dioxide BUN Creatinine Glucose POC Glucose 185 H Lactic Acid Calcium Phosphorus Magnesium Direct Bilirubin AST ALT Alkaline Phosphatase Lactate Dehydrogenase Troponin T C-Reactive Protein Total Protein Albumin Prealbumin Triglycerides Cholesterol LDL Cholesterol Direct HDL Cholesterol Urine pH Urine WBC (Auto) Urine Creatinine Urine Total Protein Fluid Total Protein Vancomycin Trough Rheumatoid Factor Complement C4 Miscellaneous Test Crossmatch See Detail 09/16/16 09/16/16 09/16/16 17:55 19:19 23:48 WBC RBC Hgb Hct MCV MCH MCHC RDW Plt Count Lymph % (Auto) [place] % (Auto) Lymph # [place] # Baso # Seg Neutrophils % Seg Neuts % (Manual) Lymphocytes % (Manual) Monocytes % (Manual) Eosinophils % (Manual) Basophils % (Manual) Nucleated RBC % Seg Neutrophils # Seg Neutrophils # Man Lymphocytes # (Manual) Monocytes # (Manual) Eosinophils # (Manual) Basophils # (Manual) PT INR Fibrinogen dRVVT Confirm Interp Factor V Activity POC ABG pH POC ABG pCO2 POC ABG pO2 ABG pO2 ABG HCO3 ABG Base Excess ABG Hemoglobin Oxyhemoglobin Sodium Potassium Chloride Carbon Dioxide BUN Creatinine Glucose POC Glucose 222 H 107 H Lactic Acid Calcium Phosphorus Magnesium Direct Bilirubin AST ALT Alkaline Phosphatase Lactate Dehydrogenase Troponin T C-Reactive Protein Total Protein Albumin Prealbumin Triglycerides Cholesterol LDL Cholesterol Direct HDL Cholesterol Urine pH Urine WBC (Auto) Urine Creatinine 47.4 H Urine Total Protein 16 H Fluid Total Protein Vancomycin Trough Rheumatoid Factor Complement C4 Miscellaneous Test Crossmatch 09/17/16 09/17/16 09/17/16 03:45 03:45 04:55 WBC 19.6 H RBC 3.41 L Hgb 8.5 L Hct 26.7 L MCV 78 L MCH 25 L MCHC RDW 19.9 H Plt Count Lymph % (Auto) 9.3 L [place] % (Auto) Lymph # [place] # 1.2 H Baso # Seg Neutrophils % 83.9 H Seg Neuts % (Manual) Lymphocytes % (Manual) Monocytes % (Manual) Eosinophils % (Manual) Basophils % (Manual) Nucleated RBC % Seg Neutrophils # 16.4 H Seg Neutrophils # Man Lymphocytes # (Manual) Monocytes # (Manual) Eosinophils # (Manual) Basophils # (Manual) PT INR Fibrinogen dRVVT Confirm Interp Factor V Activity POC ABG pH POC ABG pCO2 POC ABG pO2 ABG pO2 ABG HCO3 ABG Base Excess ABG Hemoglobin Oxyhemoglobin Sodium 146 H Potassium 5.1 H Chloride 110.9 H Carbon Dioxide 16 L BUN 146 H Creatinine 4.0 H Glucose 108 H POC Glucose 133 H Lactic Acid Calcium Phosphorus Magnesium 3.00 H Direct Bilirubin AST ALT Alkaline Phosphatase Lactate Dehydrogenase Troponin T C-Reactive Protein Total Protein Albumin Prealbumin Triglycerides Cholesterol LDL Cholesterol Direct HDL Cholesterol Urine pH Urine WBC (Auto) Urine Creatinine Urine Total Protein Fluid Total Protein Vancomycin Trough Rheumatoid Factor Complement C4 Miscellaneous Test Crossmatch 09/17/16 09/17/16 09/17/16 11:15 17:33 23:47 WBC RBC Hgb Hct MCV MCH MCHC RDW Plt Count Lymph % (Auto) [place] % (Auto) Lymph # [place] # Baso # Seg Neutrophils % Seg Neuts % (Manual) Lymphocytes % (Manual) Monocytes % (Manual) Eosinophils % (Manual) Basophils % (Manual) Nucleated RBC % Seg Neutrophils # Seg Neutrophils # Man Lymphocytes # (Manual) Monocytes # (Manual) Eosinophils # (Manual) Basophils # (Manual) PT INR Fibrinogen dRVVT Confirm Interp Factor V Activity POC ABG pH POC ABG pCO2 POC ABG pO2 ABG pO2 ABG HCO3 ABG Base Excess ABG Hemoglobin Oxyhemoglobin Sodium Potassium Chloride Carbon Dioxide BUN Creatinine Glucose POC Glucose 176 H 246 H 148 H Lactic Acid Calcium Phosphorus Magnesium Direct Bilirubin AST ALT Alkaline Phosphatase Lactate Dehydrogenase Troponin T C-Reactive Protein Total Protein Albumin Prealbumin Triglycerides Cholesterol LDL Cholesterol Direct HDL Cholesterol Urine pH Urine WBC (Auto) Urine Creatinine Urine Total Protein Fluid Total Protein Vancomycin Trough Rheumatoid Factor Complement C4 Miscellaneous Test Crossmatch 09/18/16 09/18/16 09/18/16 05:33 08:31 08:31 WBC 18.0 H RBC 3.17 L Hgb 9.0 L Hct 25.7 L MCV MCH MCHC 35 H RDW 20.4 H Plt Count Lymph % (Auto) [place] % (Auto) Lymph # [place] # Baso # Seg Neutrophils % Seg Neuts % (Manual) Lymphocytes % (Manual) Monocytes % (Manual) Eosinophils % (Manual) Basophils % (Manual) Nucleated RBC % Seg Neutrophils # Seg Neutrophils # Man Lymphocytes # (Manual) Monocytes # (Manual) Eosinophils # (Manual) Basophils # (Manual) PT INR Fibrinogen dRVVT Confirm Interp Factor V Activity POC ABG pH POC ABG pCO2 POC ABG pO2 ABG pO2 ABG HCO3 ABG Base Excess ABG Hemoglobin Oxyhemoglobin Sodium Potassium Chloride Carbon Dioxide 15 L BUN 124 H Creatinine 3.8 H Glucose POC Glucose 120 H Lactic Acid Calcium 8.1 L Phosphorus Magnesium Direct Bilirubin AST ALT Alkaline Phosphatase Lactate Dehydrogenase Troponin T C-Reactive Protein Total Protein Albumin Prealbumin Triglycerides Cholesterol LDL Cholesterol Direct HDL Cholesterol Urine pH Urine WBC (Auto) Urine Creatinine Urine Total Protein Fluid Total Protein Vancomycin Trough Rheumatoid Factor Complement C4 Miscellaneous Test Crossmatch 09/18/16 09/18/16 09/18/16 12:03 15:34 17:50 WBC RBC Hgb Hct MCV MCH MCHC RDW Plt Count Lymph % (Auto) [place] % (Auto) Lymph # [place] # Baso # Seg Neutrophils % Seg Neuts % (Manual) Lymphocytes % (Manual) Monocytes % (Manual) Eosinophils % (Manual) Basophils % (Manual) Nucleated RBC % Seg Neutrophils # Seg Neutrophils # Man Lymphocytes # (Manual) Monocytes # (Manual) Eosinophils # (Manual) Basophils # (Manual) PT INR Fibrinogen dRVVT Confirm Interp Factor V Activity POC ABG pH POC ABG pCO2 25.7 L POC ABG pO2 66 L ABG pO2 ABG HCO3 ABG Base Excess ABG Hemoglobin Oxyhemoglobin Sodium Potassium Chloride Carbon Dioxide BUN Creatinine Glucose POC Glucose 156 H 220 H Lactic Acid Calcium Phosphorus Magnesium Direct Bilirubin AST ALT Alkaline Phosphatase Lactate Dehydrogenase Troponin T C-Reactive Protein Total Protein Albumin Prealbumin Triglycerides Cholesterol LDL Cholesterol Direct HDL Cholesterol Urine pH Urine WBC (Auto) Urine Creatinine Urine Total Protein Fluid Total Protein Vancomycin Trough Rheumatoid Factor Complement C4 Miscellaneous Test Crossmatch 09/19/16 09/19/16 09/19/16 06:21 09:50 09:50 WBC 17.1 H RBC 3.49 L Hgb 9.0 L Hct 28.1 L MCV MCH 26 L MCHC RDW 20.8 H Plt Count Lymph % (Auto) 11.5 L [place] % (Auto) 7.5 H Lymph # [place] # 1.3 H Baso # Seg Neutrophils % 79.8 H Seg Neuts % (Manual) Lymphocytes % (Manual) Monocytes % (Manual) Eosinophils % (Manual) Basophils % (Manual) Nucleated RBC % Seg Neutrophils # 13.7 H Seg Neutrophils # Man Lymphocytes # (Manual) Monocytes # (Manual) Eosinophils # (Manual) Basophils # (Manual) PT INR Fibrinogen dRVVT Confirm Interp Factor V Activity POC ABG pH POC ABG pCO2 POC ABG pO2 ABG pO2 ABG HCO3 ABG Base Excess ABG Hemoglobin Oxyhemoglobin Sodium Potassium Chloride 108.6 H Carbon Dioxide 15 L BUN 125 H Creatinine 4.1 H Glucose 124 H POC Glucose 119 H Lactic Acid Calcium Phosphorus Magnesium Direct Bilirubin AST ALT Alkaline Phosphatase Lactate Dehydrogenase Troponin T C-Reactive Protein Total Protein Albumin Prealbumin Triglycerides Cholesterol LDL Cholesterol Direct HDL Cholesterol Urine pH Urine WBC (Auto) Urine Creatinine Urine Total Protein Fluid Total Protein Vancomycin Trough Rheumatoid Factor Complement C4 Miscellaneous Test Crossmatch 09/19/16 09/19/16 09/19/16 11:25 17:53 23:36 WBC RBC Hgb Hct MCV MCH MCHC RDW Plt Count Lymph % (Auto) [place] % (Auto) Lymph # [place] # Baso # Seg Neutrophils % Seg Neuts % (Manual) Lymphocytes % (Manual) Monocytes % (Manual) Eosinophils % (Manual) Basophils % (Manual) Nucleated RBC % Seg Neutrophils # Seg Neutrophils # Man Lymphocytes # (Manual) Monocytes # (Manual) Eosinophils # (Manual) Basophils # (Manual) PT INR Fibrinogen dRVVT Confirm Interp Factor V Activity POC ABG pH POC ABG pCO2 POC ABG pO2 ABG pO2 ABG HCO3 ABG Base Excess ABG Hemoglobin Oxyhemoglobin Sodium Potassium Chloride Carbon Dioxide BUN Creatinine Glucose POC Glucose 160 H 245 H 121 H Lactic Acid Calcium Phosphorus Magnesium Direct Bilirubin AST ALT Alkaline Phosphatase Lactate Dehydrogenase Troponin T C-Reactive Protein Total Protein Albumin Prealbumin Triglycerides Cholesterol LDL Cholesterol Direct HDL Cholesterol Urine pH Urine WBC (Auto) Urine Creatinine Urine Total Protein Fluid Total Protein Vancomycin Trough Rheumatoid Factor Complement C4 Miscellaneous Test Crossmatch 09/20/16 09/20/16 09/20/16 04:10 04:10 04:10 WBC 17.0 H RBC 3.21 L Hgb 8.2 L Hct 25.5 L MCV MCH 26 L MCHC RDW 20.9 H Plt Count Lymph % (Auto) [place] % (Auto) Lymph # [place] # Baso # Seg Neutrophils % Seg Neuts % (Manual) Lymphocytes % (Manual) Monocytes % (Manual) Eosinophils % (Manual) Basophils % (Manual) Nucleated RBC % Seg Neutrophils # Seg Neutrophils # Man Lymphocytes # (Manual) Monocytes # (Manual) Eosinophils # (Manual) Basophils # (Manual) PT INR Fibrinogen dRVVT Confirm Interp Factor V Activity POC ABG pH POC ABG pCO2 POC ABG pO2 ABG pO2 ABG HCO3 ABG Base Excess ABG Hemoglobin Oxyhemoglobin Sodium Potassium Chloride 111.0 H Carbon Dioxide 16 L BUN 129 H Creatinine 3.7 H Glucose 115 H POC Glucose Lactic Acid Calcium 8.2 L Phosphorus Magnesium Direct Bilirubin AST ALT Alkaline Phosphatase Lactate Dehydrogenase Troponin T C-Reactive Protein Total Protein Albumin Prealbumin Triglycerides 243 H Cholesterol LDL Cholesterol Direct HDL Cholesterol Urine pH Urine WBC (Auto) Urine Creatinine Urine Total Protein Fluid Total Protein Vancomycin Trough Rheumatoid Factor Complement C4 Miscellaneous Test Crossmatch 09/20/16 09/20/16 09/20/16 05:40 11:52 16:50 WBC RBC Hgb Hct MCV MCH MCHC RDW Plt Count Lymph % (Auto) [place] % (Auto) Lymph # [place] # Baso # Seg Neutrophils % Seg Neuts % (Manual) Lymphocytes % (Manual) Monocytes % (Manual) Eosinophils % (Manual) Basophils % (Manual) Nucleated RBC % Seg Neutrophils # Seg Neutrophils # Man Lymphocytes # (Manual) Monocytes # (Manual) Eosinophils # (Manual) Basophils # (Manual) PT INR Fibrinogen dRVVT Confirm Interp Factor V Activity POC ABG pH POC ABG pCO2 POC ABG pO2 ABG pO2 ABG HCO3 ABG Base Excess ABG Hemoglobin Oxyhemoglobin Sodium Potassium Chloride Carbon Dioxide BUN Creatinine Glucose POC Glucose 131 H 183 H 236 H Lactic Acid Calcium Phosphorus Magnesium Direct Bilirubin AST ALT Alkaline Phosphatase Lactate Dehydrogenase Troponin T C-Reactive Protein Total Protein Albumin Prealbumin Triglycerides Cholesterol LDL Cholesterol Direct HDL Cholesterol Urine pH Urine WBC (Auto) Urine Creatinine Urine Total Protein Fluid Total Protein Vancomycin Trough Rheumatoid Factor Complement C4 Miscellaneous Test Crossmatch 09/20/16 09/21/16 09/21/16 23:51 03:30 04:44 WBC RBC Hgb Hct MCV MCH MCHC RDW Plt Count Lymph % (Auto) [place] % (Auto) Lymph # [place] # Baso # Seg Neutrophils % Seg Neuts % (Manual) Lymphocytes % (Manual) Monocytes % (Manual) Eosinophils % (Manual) Basophils % (Manual) Nucleated RBC % Seg Neutrophils # Seg Neutrophils # Man Lymphocytes # (Manual) Monocytes # (Manual) Eosinophils # (Manual) Basophils # (Manual) PT INR Fibrinogen dRVVT Confirm Interp Factor V Activity POC ABG pH POC ABG pCO2 POC ABG pO2 ABG pO2 ABG HCO3 ABG Base Excess ABG Hemoglobin Oxyhemoglobin Sodium Potassium Chloride Carbon Dioxide BUN Creatinine Glucose POC Glucose 114 H 141 H Lactic Acid Calcium Phosphorus Magnesium 2.70 H Direct Bilirubin AST ALT Alkaline Phosphatase Lactate Dehydrogenase Troponin T C-Reactive Protein Total Protein Albumin Prealbumin Triglycerides Cholesterol LDL Cholesterol Direct HDL Cholesterol Urine pH Urine WBC (Auto) Urine Creatinine Urine Total Protein Fluid Total Protein Vancomycin Trough Rheumatoid Factor Complement C4 Miscellaneous Test Crossmatch 09/21/16 09/21/16 09/21/16 07:45 07:45 10:01 WBC 13.8 H RBC 2.94 L Hgb 7.5 L Hct 23.5 L MCV MCH 26 L MCHC RDW 21.2 H Plt Count Lymph % (Auto) 6.9 L [place] % (Auto) 9.4 H Lymph # 0.9 L [place] # 1.3 H Baso # Seg Neutrophils % 83.2 H Seg Neuts % (Manual) Lymphocytes % (Manual) Monocytes % (Manual) Eosinophils % (Manual) Basophils % (Manual) Nucleated RBC % Seg Neutrophils # 11.5 H Seg Neutrophils # Man Lymphocytes # (Manual) Monocytes # (Manual) Eosinophils # (Manual) Basophils # (Manual) PT INR Fibrinogen dRVVT Confirm Interp Factor V Activity POC ABG pH 7.308 L POC ABG pCO2 31.9 L POC ABG pO2 148 H ABG pO2 ABG HCO3 ABG Base Excess ABG Hemoglobin Oxyhemoglobin Sodium 147 H Potassium Chloride 114.2 H Carbon Dioxide 15 L BUN 120 H Creatinine 3.9 H Glucose 156 H POC Glucose Lactic Acid Calcium 8.2 L Phosphorus Magnesium Direct Bilirubin AST ALT Alkaline Phosphatase Lactate Dehydrogenase Troponin T C-Reactive Protein Total Protein Albumin Prealbumin Triglycerides Cholesterol LDL Cholesterol Direct HDL Cholesterol Urine pH Urine WBC (Auto) Urine Creatinine Urine Total Protein Fluid Total Protein Vancomycin Trough Rheumatoid Factor Complement C4 Miscellaneous Test Crossmatch 09/21/16 09/21/16 09/21/16 12:00 12:03 13:00 WBC RBC Hgb Hct MCV MCH MCHC RDW Plt Count Lymph % (Auto) [place] % (Auto) Lymph # [place] # Baso # Seg Neutrophils % Seg Neuts % (Manual) Lymphocytes % (Manual) Monocytes % (Manual) Eosinophils % (Manual) Basophils % (Manual) Nucleated RBC % Seg Neutrophils # Seg Neutrophils # Man Lymphocytes # (Manual) Monocytes # (Manual) Eosinophils # (Manual) Basophils # (Manual) PT INR Fibrinogen dRVVT Confirm Interp Factor V Activity POC ABG pH POC ABG pCO2 POC ABG pO2 ABG pO2 ABG HCO3 ABG Base Excess ABG Hemoglobin Oxyhemoglobin Sodium Potassium Chloride Carbon Dioxide BUN Creatinine Glucose POC Glucose 163 H Lactic Acid Calcium Phosphorus Magnesium Direct Bilirubin AST ALT Alkaline Phosphatase Lactate Dehydrogenase Troponin T C-Reactive Protein Total Protein Albumin Prealbumin Triglycerides Cholesterol LDL Cholesterol Direct HDL Cholesterol Urine pH Urine WBC (Auto) Urine Creatinine 54.8 H Urine Total Protein Fluid Total Protein Vancomycin Trough 2.3 L Rheumatoid Factor Complement C4 Miscellaneous Test Crossmatch 09/21/16 09/21/16 09/22/16 16:51 23:17 06:27 WBC RBC Hgb Hct MCV MCH MCHC RDW Plt Count Lymph % (Auto) [place] % (Auto) Lymph # [place] # Baso # Seg Neutrophils % Seg Neuts % (Manual) Lymphocytes % (Manual) Monocytes % (Manual) Eosinophils % (Manual) Basophils % (Manual) Nucleated RBC % Seg Neutrophils # Seg Neutrophils # Man Lymphocytes # (Manual) Monocytes # (Manual) Eosinophils # (Manual) Basophils # (Manual) PT INR Fibrinogen dRVVT Confirm Interp Factor V Activity POC ABG pH POC ABG pCO2 POC ABG pO2 ABG pO2 ABG HCO3 ABG Base Excess ABG Hemoglobin Oxyhemoglobin Sodium Potassium Chloride Carbon Dioxide BUN Creatinine Glucose POC Glucose 206 H 114 H 115 H Lactic Acid Calcium Phosphorus Magnesium Direct Bilirubin AST ALT Alkaline Phosphatase Lactate Dehydrogenase Troponin T C-Reactive Protein Total Protein Albumin Prealbumin Triglycerides Cholesterol LDL Cholesterol Direct HDL Cholesterol Urine pH Urine WBC (Auto) Urine Creatinine Urine Total Protein Fluid Total Protein Vancomycin Trough Rheumatoid Factor Complement C4 Miscellaneous Test Crossmatch 09/22/16 09/22/16 09/22/16 07:50 07:50 12:00 WBC 17.8 H RBC 3.04 L Hgb 8.0 L Hct 24.7 L MCV MCH 26 L MCHC RDW 21.6 H Plt Count Lymph % (Auto) [place] % (Auto) Lymph # [place] # Baso # Seg Neutrophils % Seg Neuts % (Manual) Lymphocytes % (Manual) Monocytes % (Manual) Eosinophils % (Manual) Basophils % (Manual) Nucleated RBC % Seg Neutrophils # Seg Neutrophils # Man Lymphocytes # (Manual) Monocytes # (Manual) Eosinophils # (Manual) Basophils # (Manual) PT INR Fibrinogen dRVVT Confirm Interp Factor V Activity POC ABG pH POC ABG pCO2 POC ABG pO2 ABG pO2 ABG HCO3 ABG Base Excess ABG Hemoglobin Oxyhemoglobin Sodium 150 H Potassium Chloride 118.2 H Carbon Dioxide 14 L BUN 111 H Creatinine 3.7 H Glucose 157 H POC Glucose 183 H Lactic Acid Calcium Phosphorus Magnesium Direct Bilirubin AST ALT Alkaline Phosphatase Lactate Dehydrogenase Troponin T C-Reactive Protein Total Protein Albumin Prealbumin Triglycerides Cholesterol LDL Cholesterol Direct HDL Cholesterol Urine pH Urine WBC (Auto) Urine Creatinine Urine Total Protein Fluid Total Protein Vancomycin Trough Rheumatoid Factor Complement C4 Miscellaneous Test Crossmatch 09/22/16 09/22/16 09/23/16 17:29 23:10 05:00 WBC 19.2 H RBC 3.13 L Hgb 8.0 L Hct 25.2 L MCV MCH 26 L MCHC RDW 22.1 H Plt Count Lymph % (Auto) [place] % (Auto) Lymph # [place] # Baso # Seg Neutrophils % Seg Neuts % (Manual) 92.0 H Lymphocytes % (Manual) 3.0 L Monocytes % (Manual) Eosinophils % (Manual) Basophils % (Manual) Nucleated RBC % Seg Neutrophils # Seg Neutrophils # Man 17.7 H Lymphocytes # (Manual) 0.6 L Monocytes # (Manual) Eosinophils # (Manual) Basophils # (Manual) PT INR Fibrinogen dRVVT Confirm Interp Factor V Activity POC ABG pH POC ABG pCO2 POC ABG pO2 ABG pO2 ABG HCO3 ABG Base Excess ABG Hemoglobin Oxyhemoglobin Sodium Potassium Chloride Carbon Dioxide BUN Creatinine Glucose POC Glucose 197 H 169 H Lactic Acid Calcium Phosphorus Magnesium Direct Bilirubin AST ALT Alkaline Phosphatase Lactate Dehydrogenase Troponin T C-Reactive Protein Total Protein Albumin Prealbumin Triglycerides Cholesterol LDL Cholesterol Direct HDL Cholesterol Urine pH Urine WBC (Auto) Urine Creatinine Urine Total Protein Fluid Total Protein Vancomycin Trough Rheumatoid Factor Complement C4 Miscellaneous Test Crossmatch 09/23/16 09/23/16 09/23/16 05:00 05:00 05:10 WBC RBC Hgb Hct MCV MCH MCHC RDW Plt Count Lymph % (Auto) [place] % (Auto) Lymph # [place] # Baso # Seg Neutrophils % Seg Neuts % (Manual) Lymphocytes % (Manual) Monocytes % (Manual) Eosinophils % (Manual) Basophils % (Manual) Nucleated RBC % Seg Neutrophils # Seg Neutrophils # Man Lymphocytes # (Manual) Monocytes # (Manual) Eosinophils # (Manual) Basophils # (Manual) PT INR Fibrinogen dRVVT Confirm Interp Factor V Activity POC ABG pH POC ABG pCO2 POC ABG pO2 ABG pO2 ABG HCO3 ABG Base Excess ABG Hemoglobin Oxyhemoglobin Sodium 147 H Potassium 3.2 L Chloride 115.7 H Carbon Dioxide 13 L BUN 111 H Creatinine 3.8 H Glucose 194 H POC Glucose 188 H Lactic Acid Calcium 7.3 L D Phosphorus Magnesium Direct Bilirubin AST ALT Alkaline Phosphatase Lactate Dehydrogenase Troponin T C-Reactive Protein 3.20 H Total Protein Albumin Prealbumin Triglycerides Cholesterol LDL Cholesterol Direct HDL Cholesterol Urine pH Urine WBC (Auto) Urine Creatinine Urine Total Protein Fluid Total Protein Vancomycin Trough Rheumatoid Factor Complement C4 Miscellaneous Test Crossmatch 09/23/16 09/23/16 09/23/16 11:37 12:29 18:01 WBC RBC Hgb Hct MCV MCH MCHC RDW Plt Count Lymph % (Auto) [place] % (Auto) Lymph # [place] # Baso # Seg Neutrophils % Seg Neuts % (Manual) Lymphocytes % (Manual) Monocytes % (Manual) Eosinophils % (Manual) Basophils % (Manual) Nucleated RBC % Seg Neutrophils # Seg Neutrophils # Man Lymphocytes # (Manual) Monocytes # (Manual) Eosinophils # (Manual) Basophils # (Manual) PT INR Fibrinogen dRVVT Confirm Interp Factor V Activity POC ABG pH POC ABG pCO2 18.9 L POC ABG pO2 143 H ABG pO2 ABG HCO3 ABG Base Excess ABG Hemoglobin Oxyhemoglobin Sodium Potassium Chloride Carbon Dioxide BUN Creatinine Glucose POC Glucose 153 H 108 H Lactic Acid Calcium Phosphorus Magnesium Direct Bilirubin AST ALT Alkaline Phosphatase Lactate Dehydrogenase Troponin T C-Reactive Protein Total Protein Albumin Prealbumin Triglycerides Cholesterol LDL Cholesterol Direct HDL Cholesterol Urine pH Urine WBC (Auto) Urine Creatinine Urine Total Protein Fluid Total Protein Vancomycin Trough Rheumatoid Factor Complement C4 Miscellaneous Test Crossmatch 09/23/16 09/23/16 09/24/16 21:19 23:43 05:16 WBC RBC Hgb Hct MCV MCH MCHC RDW Plt Count Lymph % (Auto) [place] % (Auto) Lymph # [place] # Baso # Seg Neutrophils % Seg Neuts % (Manual) Lymphocytes % (Manual) Monocytes % (Manual) Eosinophils % (Manual) Basophils % (Manual) Nucleated RBC % Seg Neutrophils # Seg Neutrophils # Man Lymphocytes # (Manual) Monocytes # (Manual) Eosinophils # (Manual) Basophils # (Manual) PT INR Fibrinogen dRVVT Confirm Interp Factor V Activity POC ABG pH POC ABG pCO2 17.3 L POC ABG pO2 112 H ABG pO2 ABG HCO3 ABG Base Excess ABG Hemoglobin Oxyhemoglobin Sodium Potassium Chloride Carbon Dioxide BUN Creatinine Glucose POC Glucose 143 H 164 H Lactic Acid Calcium Phosphorus Magnesium Direct Bilirubin AST ALT Alkaline Phosphatase Lactate Dehydrogenase Troponin T C-Reactive Protein Total Protein Albumin Prealbumin Triglycerides Cholesterol LDL Cholesterol Direct HDL Cholesterol Urine pH Urine WBC (Auto) Urine Creatinine Urine Total Protein Fluid Total Protein Vancomycin Trough Rheumatoid Factor Complement C4 Miscellaneous Test Crossmatch 09/24/16 09/24/16 09/24/16 05:21 11:58 17:06 WBC RBC Hgb Hct MCV MCH MCHC RDW Plt Count Lymph % (Auto) [place] % (Auto) Lymph # [place] # Baso # Seg Neutrophils % Seg Neuts % (Manual) Lymphocytes % (Manual) Monocytes % (Manual) Eosinophils % (Manual) Basophils % (Manual) Nucleated RBC % Seg Neutrophils # Seg Neutrophils # Man Lymphocytes # (Manual) Monocytes # (Manual) Eosinophils # (Manual) Basophils # (Manual) PT INR Fibrinogen dRVVT Confirm Interp Factor V Activity POC ABG pH POC ABG pCO2 POC ABG pO2 ABG pO2 ABG HCO3 ABG Base Excess ABG Hemoglobin Oxyhemoglobin Sodium Potassium Chloride Carbon Dioxide 10 L BUN 103 H Creatinine 4.3 H Glucose 163 H POC Glucose 173 H 167 H Lactic Acid Calcium 6.5 L Phosphorus Magnesium Direct Bilirubin AST ALT Alkaline Phosphatase Lactate Dehydrogenase Troponin T C-Reactive Protein Total Protein Albumin Prealbumin Triglycerides Cholesterol LDL Cholesterol Direct HDL Cholesterol Urine pH Urine WBC (Auto) Urine Creatinine Urine Total Protein Fluid Total Protein Vancomycin Trough Rheumatoid Factor Complement C4 Miscellaneous Test Crossmatch 09/24/16 09/24/16 09/24/16 20:15 21:02 23:48 WBC RBC Hgb Hct MCV MCH MCHC RDW Plt Count Lymph % (Auto) [place] % (Auto) Lymph # [place] # Baso # Seg Neutrophils % Seg Neuts % (Manual) Lymphocytes % (Manual) Monocytes % (Manual) Eosinophils % (Manual) Basophils % (Manual) Nucleated RBC % Seg Neutrophils # Seg Neutrophils # Man Lymphocytes # (Manual) Monocytes # (Manual) Eosinophils # (Manual) Basophils # (Manual) PT INR Fibrinogen dRVVT Confirm Interp Factor V Activity POC ABG pH 7.288 L POC ABG pCO2 30.2 L 21.5 L POC ABG pO2 32 L 39 L ABG pO2 ABG HCO3 ABG Base Excess ABG Hemoglobin Oxyhemoglobin Sodium Potassium Chloride Carbon Dioxide BUN Creatinine Glucose POC Glucose 109 H Lactic Acid Calcium Phosphorus Magnesium Direct Bilirubin AST ALT Alkaline Phosphatase Lactate Dehydrogenase Troponin T C-Reactive Protein Total Protein Albumin Prealbumin Triglycerides Cholesterol LDL Cholesterol Direct HDL Cholesterol Urine pH Urine WBC (Auto) Urine Creatinine Urine Total Protein Fluid Total Protein Vancomycin Trough Rheumatoid Factor Complement C4 Miscellaneous Test Crossmatch 09/25/16 09/25/16 09/25/16 04:20 04:20 04:20 WBC RBC 2.58 L Hgb 7.0 L Hct 21.0 L MCV MCH 27 L MCHC RDW 23.8 H Plt Count Lymph % (Auto) [place] % (Auto) Lymph # [place] # Baso # Seg Neutrophils % Seg Neuts % (Manual) Lymphocytes % (Manual) 12.0 L Monocytes % (Manual) Eosinophils % (Manual) 7.0 H Basophils % (Manual) 2.0 H Nucleated RBC % Seg Neutrophils # Seg Neutrophils # Man Lymphocytes # (Manual) 0.9 L Monocytes # (Manual) Eosinophils # (Manual) 0.5 H Basophils # (Manual) PT INR Fibrinogen dRVVT Confirm Interp Factor V Activity POC ABG pH POC ABG pCO2 POC ABG pO2 ABG pO2 ABG HCO3 ABG Base Excess ABG Hemoglobin Oxyhemoglobin Sodium Potassium Chloride Carbon Dioxide 15 L BUN 72 H Creatinine 3.8 H Glucose POC Glucose Lactic Acid Calcium 6.0 L Phosphorus 4.60 H Magnesium 1.60 L Direct Bilirubin AST ALT Alkaline Phosphatase Lactate Dehydrogenase Troponin T C-Reactive Protein Total Protein Albumin Prealbumin Triglycerides Cholesterol LDL Cholesterol Direct HDL Cholesterol Urine pH Urine WBC (Auto) Urine Creatinine Urine Total Protein Fluid Total Protein Vancomycin Trough Rheumatoid Factor Complement C4 Miscellaneous Test Crossmatch 09/25/16 09/25/16 09/25/16 04:57 08:02 10:30 WBC RBC Hgb Hct MCV MCH MCHC RDW Plt Count Lymph % (Auto) [place] % (Auto) Lymph # [place] # Baso # Seg Neutrophils % Seg Neuts % (Manual) Lymphocytes % (Manual) Monocytes % (Manual) Eosinophils % (Manual) Basophils % (Manual) Nucleated RBC % Seg Neutrophils # Seg Neutrophils # Man Lymphocytes # (Manual) Monocytes # (Manual) Eosinophils # (Manual) Basophils # (Manual) PT INR Fibrinogen dRVVT Confirm Interp Factor V Activity POC ABG pH POC ABG pCO2 24.7 L POC ABG pO2 152 H ABG pO2 ABG HCO3 ABG Base Excess ABG Hemoglobin Oxyhemoglobin Sodium Potassium Chloride Carbon Dioxide BUN Creatinine Glucose POC Glucose 113 H Lactic Acid Calcium Phosphorus Magnesium Direct Bilirubin AST ALT Alkaline Phosphatase Lactate Dehydrogenase Troponin T C-Reactive Protein Total Protein Albumin Prealbumin Triglycerides Cholesterol LDL Cholesterol Direct HDL Cholesterol Urine pH Urine WBC (Auto) Urine Creatinine Urine Total Protein Fluid Total Protein Vancomycin Trough Rheumatoid Factor Complement C4 Miscellaneous Test Crossmatch See Detail 09/25/16 09/25/16 09/25/16 12:05 17:44 23:47 WBC RBC Hgb Hct MCV MCH MCHC RDW Plt Count Lymph % (Auto) [place] % (Auto) Lymph # [place] # Baso # Seg Neutrophils % Seg Neuts % (Manual) Lymphocytes % (Manual) Monocytes % (Manual) Eosinophils % (Manual) Basophils % (Manual) Nucleated RBC % Seg Neutrophils # Seg Neutrophils # Man Lymphocytes # (Manual) Monocytes # (Manual) Eosinophils # (Manual) Basophils # (Manual) PT INR Fibrinogen dRVVT Confirm Interp Factor V Activity POC ABG pH POC ABG pCO2 POC ABG pO2 ABG pO2 ABG HCO3 ABG Base Excess ABG Hemoglobin Oxyhemoglobin Sodium Potassium Chloride Carbon Dioxide BUN Creatinine Glucose POC Glucose 117 H 119 H 150 H Lactic Acid Calcium Phosphorus Magnesium Direct Bilirubin AST ALT Alkaline Phosphatase Lactate Dehydrogenase Troponin T C-Reactive Protein Total Protein Albumin Prealbumin Triglycerides Cholesterol LDL Cholesterol Direct HDL Cholesterol Urine pH Urine WBC (Auto) Urine Creatinine Urine Total Protein Fluid Total Protein Vancomycin Trough Rheumatoid Factor Complement C4 Miscellaneous Test Crossmatch 09/26/16 09/26/16 09/26/16 04:25 04:25 04:25 WBC RBC 2.65 L Hgb 7.4 L Hct 21.6 L MCV MCH MCHC RDW 22.5 H Plt Count Lymph % (Auto) [place] % (Auto) Lymph # [place] # Baso # Seg Neutrophils % Seg Neuts % (Manual) Lymphocytes % (Manual) 6.0 L Monocytes % (Manual) Eosinophils % (Manual) 11.0 H Basophils % (Manual) Nucleated RBC % Seg Neutrophils # Seg Neutrophils # Man Lymphocytes # (Manual) 0.4 L Monocytes # (Manual) Eosinophils # (Manual) 0.6 H Basophils # (Manual) PT INR Fibrinogen dRVVT Confirm Interp Factor V Activity POC ABG pH POC ABG pCO2 POC ABG pO2 ABG pO2 ABG HCO3 ABG Base Excess ABG Hemoglobin Oxyhemoglobin Sodium Potassium Chloride 97.0 L Carbon Dioxide 19 L BUN 43 H Creatinine 2.6 H Glucose 130 H POC Glucose Lactic Acid 4.40 H* Calcium 6.7 L Phosphorus Magnesium Direct Bilirubin AST ALT Alkaline Phosphatase Lactate Dehydrogenase Troponin T C-Reactive Protein Total Protein Albumin Prealbumin Triglycerides Cholesterol LDL Cholesterol Direct HDL Cholesterol Urine pH Urine WBC (Auto) Urine Creatinine Urine Total Protein Fluid Total Protein Vancomycin Trough Rheumatoid Factor Complement C4 Miscellaneous Test Crossmatch 09/26/16 09/26/16 09/26/16 05:20 11:44 12:12 WBC RBC Hgb Hct MCV MCH MCHC RDW Plt Count Lymph % (Auto) [place] % (Auto) Lymph # [place] # Baso # Seg Neutrophils % Seg Neuts % (Manual) Lymphocytes % (Manual) Monocytes % (Manual) Eosinophils % (Manual) Basophils % (Manual) Nucleated RBC % Seg Neutrophils # Seg Neutrophils # Man Lymphocytes # (Manual) Monocytes # (Manual) Eosinophils # (Manual) Basophils # (Manual) PT INR Fibrinogen dRVVT Confirm Interp Factor V Activity POC ABG pH POC ABG pCO2 27.0 L POC ABG pO2 69 L ABG pO2 ABG HCO3 ABG Base Excess ABG Hemoglobin Oxyhemoglobin Sodium Potassium Chloride Carbon Dioxide BUN Creatinine Glucose POC Glucose 121 H 128 H Lactic Acid Calcium Phosphorus Magnesium Direct Bilirubin AST ALT Alkaline Phosphatase Lactate Dehydrogenase Troponin T C-Reactive Protein Total Protein Albumin Prealbumin Triglycerides Cholesterol LDL Cholesterol Direct HDL Cholesterol Urine pH Urine WBC (Auto) Urine Creatinine Urine Total Protein Fluid Total Protein Vancomycin Trough Rheumatoid Factor Complement C4 Miscellaneous Test Crossmatch 09/26/16 09/26/16 09/27/16 18:31 23:40 08:20 WBC RBC Hgb Hct MCV MCH MCHC RDW Plt Count Lymph % (Auto) [place] % (Auto) Lymph # [place] # Baso # Seg Neutrophils % Seg Neuts % (Manual) Lymphocytes % (Manual) Monocytes % (Manual) Eosinophils % (Manual) Basophils % (Manual) Nucleated RBC % Seg Neutrophils # Seg Neutrophils # Man Lymphocytes # (Manual) Monocytes # (Manual) Eosinophils # (Manual) Basophils # (Manual) PT INR Fibrinogen dRVVT Confirm Interp Factor V Activity POC ABG pH POC ABG pCO2 POC ABG pO2 ABG pO2 ABG HCO3 ABG Base Excess ABG Hemoglobin Oxyhemoglobin Sodium Potassium Chloride Carbon Dioxide BUN Creatinine Glucose POC Glucose 120 H 133 H Lactic Acid 4.10 H* Calcium Phosphorus Magnesium Direct Bilirubin AST ALT Alkaline Phosphatase Lactate Dehydrogenase Troponin T C-Reactive Protein Total Protein Albumin Prealbumin Triglycerides Cholesterol LDL Cholesterol Direct HDL Cholesterol Urine pH Urine WBC (Auto) Urine Creatinine Urine Total Protein Fluid Total Protein Vancomycin Trough Rheumatoid Factor Complement C4 Miscellaneous Test Crossmatch 09/27/16 09/27/16 09/27/16 11:23 15:00 18:15 WBC RBC Hgb Hct MCV MCH MCHC RDW Plt Count Lymph % (Auto) [place] % (Auto) Lymph # [place] # Baso # Seg Neutrophils % Seg Neuts % (Manual) Lymphocytes % (Manual) Monocytes % (Manual) Eosinophils % (Manual) Basophils % (Manual) Nucleated RBC % Seg Neutrophils # Seg Neutrophils # Man Lymphocytes # (Manual) Monocytes # (Manual) Eosinophils # (Manual) Basophils # (Manual) PT INR Fibrinogen dRVVT Confirm Interp Factor V Activity POC ABG pH 7.459 H POC ABG pCO2 27.1 L POC ABG pO2 140 H ABG pO2 ABG HCO3 ABG Base Excess ABG Hemoglobin Oxyhemoglobin Sodium Potassium Chloride Carbon Dioxide BUN Creatinine Glucose POC Glucose 114 H 127 H Lactic Acid Calcium Phosphorus Magnesium Direct Bilirubin AST ALT Alkaline Phosphatase Lactate Dehydrogenase Troponin T C-Reactive Protein Total Protein Albumin Prealbumin Triglycerides Cholesterol LDL Cholesterol Direct HDL Cholesterol Urine pH Urine WBC (Auto) Urine Creatinine Urine Total Protein Fluid Total Protein Vancomycin Trough Rheumatoid Factor Complement C4 Miscellaneous Test Crossmatch 09/27/16 09/27/16 09/28/16 Unknown Unknown 03:45 WBC RBC 2.49 L Hgb 6.8 L Hct 20.7 L MCV MCH 27 L MCHC RDW 22.1 H Plt Count Lymph % (Auto) [place] % (Auto) Lymph # [place] # Baso # Seg Neutrophils % Seg Neuts % (Manual) 32.0 L Lymphocytes % (Manual) 12.0 L Monocytes % (Manual) 11.0 H Eosinophils % (Manual) 10.0 H Basophils % (Manual) Nucleated RBC % Seg Neutrophils # Seg Neutrophils # Man Lymphocytes # (Manual) 1.0 L Monocytes # (Manual) 0.9 H Eosinophils # (Manual) 0.8 H Basophils # (Manual) PT INR Fibrinogen dRVVT Confirm Interp Factor V Activity POC ABG pH POC ABG pCO2 POC ABG pO2 ABG pO2 ABG HCO3 ABG Base Excess ABG Hemoglobin Oxyhemoglobin Sodium 135 L 135 L Potassium 3.5 L Chloride 93.6 L 94.4 L Carbon Dioxide 17 L 21 L BUN 45 H 28 H Creatinine 3.3 H 2.5 H Glucose 106 H POC Glucose Lactic Acid Calcium 7.3 L 7.1 L Phosphorus Magnesium Direct Bilirubin AST ALT Alkaline Phosphatase Lactate Dehydrogenase Troponin T C-Reactive Protein Total Protein Albumin Prealbumin Triglycerides Cholesterol LDL Cholesterol Direct HDL Cholesterol Urine pH Urine WBC (Auto) Urine Creatinine Urine Total Protein Fluid Total Protein Vancomycin Trough Rheumatoid Factor Complement C4 Miscellaneous Test Crossmatch 09/28/16 09/28/16 09/28/16 03:45 07:25 11:58 WBC 13.3 H RBC 3.01 L Hgb 8.4 L Hct 25.0 L MCV MCH MCHC RDW 20.5 H Plt Count 128 L Lymph % (Auto) [place] % (Auto) Lymph # [place] # Baso # Seg Neutrophils % Seg Neuts % (Manual) Lymphocytes % (Manual) 7.0 L Monocytes % (Manual) Eosinophils % (Manual) 6.0 H Basophils % (Manual) Nucleated RBC % Seg Neutrophils # Seg Neutrophils # Man Lymphocytes # (Manual) 0.9 L Monocytes # (Manual) Eosinophils # (Manual) 0.8 H Basophils # (Manual) PT INR Fibrinogen dRVVT Confirm Interp Factor V Activity POC ABG pH POC ABG pCO2 POC ABG pO2 ABG pO2 ABG HCO3 ABG Base Excess ABG Hemoglobin Oxyhemoglobin Sodium Potassium Chloride Carbon Dioxide BUN Creatinine Glucose POC Glucose 121 H Lactic Acid 4.50 H* Calcium Phosphorus Magnesium Direct Bilirubin AST ALT Alkaline Phosphatase Lactate Dehydrogenase Troponin T C-Reactive Protein Total Protein Albumin Prealbumin Triglycerides Cholesterol LDL Cholesterol Direct HDL Cholesterol Urine pH Urine WBC (Auto) Urine Creatinine Urine Total Protein Fluid Total Protein Vancomycin Trough Rheumatoid Factor Complement C4 Miscellaneous Test Crossmatch 09/29/16 09/29/16 09/29/16 06:45 06:45 06:45 WBC 14.9 H RBC 2.74 L Hgb 7.6 L Hct 23.2 L MCV MCH MCHC RDW 20.5 H Plt Count 81 L Lymph % (Auto) [place] % (Auto) Lymph # [place] # Baso # Seg Neutrophils % Seg Neuts % (Manual) 81.0 H Lymphocytes % (Manual) 4.0 L Monocytes % (Manual) Eosinophils % (Manual) Basophils % (Manual) Nucleated RBC % Seg Neutrophils # Seg Neutrophils # Man 12.1 H Lymphocytes # (Manual) 0.6 L Monocytes # (Manual) Eosinophils # (Manual) Basophils # (Manual) PT INR Fibrinogen dRVVT Confirm Interp Factor V Activity POC ABG pH POC ABG pCO2 POC ABG pO2 ABG pO2 ABG HCO3 ABG Base Excess ABG Hemoglobin Oxyhemoglobin Sodium 133 L Potassium 3.4 L Chloride 92.5 L Carbon Dioxide 21 L BUN 33 H Creatinine 3.0 H Glucose POC Glucose Lactic Acid Calcium 6.6 L Phosphorus Magnesium 1.40 L Direct Bilirubin 0.9 H AST ALT Alkaline Phosphatase Lactate Dehydrogenase Troponin T C-Reactive Protein Total Protein 4.3 L Albumin 1.3 L Prealbumin Triglycerides Cholesterol LDL Cholesterol Direct HDL Cholesterol Urine pH Urine WBC (Auto) Urine Creatinine Urine Total Protein Fluid Total Protein Vancomycin Trough Rheumatoid Factor Complement C4 Miscellaneous Test Crossmatch 09/29/16 09/29/16 09/30/16 17:52 20:12 00:07 WBC RBC Hgb Hct MCV MCH MCHC RDW Plt Count Lymph % (Auto) [place] % (Auto) Lymph # [place] # Baso # Seg Neutrophils % Seg Neuts % (Manual) Lymphocytes % (Manual) Monocytes % (Manual) Eosinophils % (Manual) Basophils % (Manual) Nucleated RBC % Seg Neutrophils # Seg Neutrophils # Man Lymphocytes # (Manual) Monocytes # (Manual) Eosinophils # (Manual) Basophils # (Manual) PT INR Fibrinogen dRVVT Confirm Interp Factor V Activity POC ABG pH POC ABG pCO2 POC ABG pO2 ABG pO2 ABG HCO3 ABG Base Excess ABG Hemoglobin Oxyhemoglobin Sodium Potassium Chloride Carbon Dioxide BUN Creatinine Glucose POC Glucose 50 L 51 L Lactic Acid Calcium Phosphorus Magnesium Direct Bilirubin AST ALT Alkaline Phosphatase Lactate Dehydrogenase Troponin T 0.204 H* C-Reactive Protein Total Protein Albumin Prealbumin Triglycerides Cholesterol 31 L LDL Cholesterol Direct 4 L HDL Cholesterol 3 L Urine pH Urine WBC (Auto) Urine Creatinine Urine Total Protein Fluid Total Protein Vancomycin Trough Rheumatoid Factor Complement C4 Miscellaneous Test Crossmatch 09/30/16 09/30/16 09/30/16 01:30 05:15 06:10 WBC RBC Hgb Hct MCV MCH MCHC RDW Plt Count Lymph % (Auto) [place] % (Auto) Lymph # [place] # Baso # Seg Neutrophils % Seg Neuts % (Manual) Lymphocytes % (Manual) Monocytes % (Manual) Eosinophils % (Manual) Basophils % (Manual) Nucleated RBC % Seg Neutrophils # Seg Neutrophils # Man Lymphocytes # (Manual) Monocytes # (Manual) Eosinophils # (Manual) Basophils # (Manual) PT INR Fibrinogen dRVVT Confirm Interp Factor V Activity POC ABG pH POC ABG pCO2 POC ABG pO2 ABG pO2 ABG HCO3 ABG Base Excess ABG Hemoglobin Oxyhemoglobin Sodium 133 L Potassium 3.2 L Chloride 93.2 L Carbon Dioxide 19 L BUN 36 H Creatinine 3.2 H Glucose 104 H POC Glucose 167 H 146 H Lactic Acid Calcium 6.4 L Phosphorus Magnesium 1.60 L Direct Bilirubin AST ALT Alkaline Phosphatase Lactate Dehydrogenase Troponin T C-Reactive Protein Total Protein Albumin Prealbumin Triglycerides Cholesterol LDL Cholesterol Direct HDL Cholesterol Urine pH Urine WBC (Auto) Urine Creatinine Urine Total Protein Fluid Total Protein Vancomycin Trough Rheumatoid Factor Complement C4 Miscellaneous Test Crossmatch 09/30/16 09/30/16 09/30/16 11:26 13:39 18:38 WBC RBC Hgb Hct MCV MCH MCHC RDW Plt Count Lymph % (Auto) [place] % (Auto) Lymph # [place] # Baso # Seg Neutrophils % Seg Neuts % (Manual) Lymphocytes % (Manual) Monocytes % (Manual) Eosinophils % (Manual) Basophils % (Manual) Nucleated RBC % Seg Neutrophils # Seg Neutrophils # Man Lymphocytes # (Manual) Monocytes # (Manual) Eosinophils # (Manual) Basophils # (Manual) PT INR Fibrinogen dRVVT Confirm Interp Factor V Activity POC ABG pH 7.479 H POC ABG pCO2 29.8 L POC ABG pO2 117 H ABG pO2 ABG HCO3 ABG Base Excess ABG Hemoglobin Oxyhemoglobin Sodium Potassium Chloride Carbon Dioxide BUN Creatinine Glucose POC Glucose 140 H 122 H Lactic Acid Calcium Phosphorus Magnesium Direct Bilirubin AST ALT Alkaline Phosphatase Lactate Dehydrogenase Troponin T C-Reactive Protein Total Protein Albumin Prealbumin Triglycerides Cholesterol LDL Cholesterol Direct HDL Cholesterol Urine pH Urine WBC (Auto) Urine Creatinine Urine Total Protein Fluid Total Protein Vancomycin Trough Rheumatoid Factor Complement C4 Miscellaneous Test Crossmatch 10/01/16 10/01/16 10/01/16 06:00 06:00 12:37 WBC 12.6 H RBC 2.75 L Hgb 7.3 L Hct 23.3 L MCV MCH 27 L MCHC RDW 20.6 H Plt Count 72 L Lymph % (Auto) [place] % (Auto) Lymph # [place] # Baso # Seg Neutrophils % Seg Neuts % (Manual) 31.0 L Lymphocytes % (Manual) 8.0 L Monocytes % (Manual) Eosinophils % (Manual) Basophils % (Manual) Nucleated RBC % 3.0 H Seg Neutrophils # Seg Neutrophils # Man Lymphocytes # (Manual) 1.0 L Monocytes # (Manual) Eosinophils # (Manual) Basophils # (Manual) PT INR Fibrinogen dRVVT Confirm Interp Factor V Activity POC ABG pH POC ABG pCO2 POC ABG pO2 ABG pO2 ABG HCO3 ABG Base Excess ABG Hemoglobin Oxyhemoglobin Sodium 127 L Potassium Chloride 86.8 L Carbon Dioxide 20 L BUN 42 H Creatinine 3.5 H Glucose POC Glucose 65 L Lactic Acid Calcium 7.0 L Phosphorus Magnesium Direct Bilirubin AST ALT Alkaline Phosphatase Lactate Dehydrogenase Troponin T C-Reactive Protein Total Protein Albumin Prealbumin Triglycerides Cholesterol LDL Cholesterol Direct HDL Cholesterol Urine pH Urine WBC (Auto) Urine Creatinine Urine Total Protein Fluid Total Protein Vancomycin Trough Rheumatoid Factor Complement C4 Miscellaneous Test Crossmatch 10/01/16 10/01/16 10/02/16 17:39 23:32 00:59 WBC RBC Hgb Hct MCV MCH MCHC RDW Plt Count Lymph % (Auto) [place] % (Auto) Lymph # [place] # Baso # Seg Neutrophils % Seg Neuts % (Manual) Lymphocytes % (Manual) Monocytes % (Manual) Eosinophils % (Manual) Basophils % (Manual) Nucleated RBC % Seg Neutrophils # Seg Neutrophils # Man Lymphocytes # (Manual) Monocytes # (Manual) Eosinophils # (Manual) Basophils # (Manual) PT INR Fibrinogen dRVVT Confirm Interp Factor V Activity POC ABG pH POC ABG pCO2 POC ABG pO2 ABG pO2 ABG HCO3 ABG Base Excess ABG Hemoglobin Oxyhemoglobin Sodium Potassium Chloride Carbon Dioxide BUN Creatinine Glucose POC Glucose 107 H 52 L 145 H Lactic Acid Calcium Phosphorus Magnesium Direct Bilirubin AST ALT Alkaline Phosphatase Lactate Dehydrogenase Troponin T C-Reactive Protein Total Protein Albumin Prealbumin Triglycerides Cholesterol LDL Cholesterol Direct HDL Cholesterol Urine pH Urine WBC (Auto) Urine Creatinine Urine Total Protein Fluid Total Protein Vancomycin Trough Rheumatoid Factor Complement C4 Miscellaneous Test Crossmatch 10/02/16 10/02/16 10/02/16 10:30 10:50 10:50 WBC 14.7 H RBC 2.76 L Hgb 7.4 L Hct 23.6 L MCV MCH 27 L MCHC RDW 20.2 H Plt Count 79 L Lymph % (Auto) [place] % (Auto) Lymph # [place] # Baso # Seg Neutrophils % Seg Neuts % (Manual) 86.0 H Lymphocytes % (Manual) 6.0 L Monocytes % (Manual) Eosinophils % (Manual) Basophils % (Manual) Nucleated RBC % Seg Neutrophils # Seg Neutrophils # Man 12.6 H Lymphocytes # (Manual) 0.9 L Monocytes # (Manual) Eosinophils # (Manual) Basophils # (Manual) PT INR Fibrinogen dRVVT Confirm Interp Factor V Activity POC ABG pH 7.486 H POC ABG pCO2 30.1 L POC ABG pO2 108 H ABG pO2 ABG HCO3 ABG Base Excess ABG Hemoglobin Oxyhemoglobin Sodium 131 L Potassium 3.4 L Chloride 89.9 L Carbon Dioxide BUN 26 H Creatinine 2.6 H Glucose POC Glucose Lactic Acid Calcium 7.0 L Phosphorus Magnesium Direct Bilirubin AST ALT Alkaline Phosphatase Lactate Dehydrogenase Troponin T C-Reactive Protein Total Protein Albumin Prealbumin Triglycerides Cholesterol LDL Cholesterol Direct HDL Cholesterol Urine pH Urine WBC (Auto) Urine Creatinine Urine Total Protein Fluid Total Protein Vancomycin Trough Rheumatoid Factor Complement C4 Miscellaneous Test Crossmatch 10/02/16 10/03/16 10/03/16 23:45 00:45 05:10 WBC 12.9 H RBC 2.77 L Hgb 7.6 L Hct 23.7 L MCV MCH 27 L MCHC RDW 19.7 H Plt Count 89 L Lymph % (Auto) [place] % (Auto) Lymph # [place] # Baso # Seg Neutrophils % Seg Neuts % (Manual) Lymphocytes % (Manual) 8.0 L Monocytes % (Manual) Eosinophils % (Manual) Basophils % (Manual) Nucleated RBC % Seg Neutrophils # 11.9 H Seg Neutrophils # Man Lymphocytes # (Manual) 1.0 L Monocytes # (Manual) Eosinophils # (Manual) Basophils # (Manual) PT INR Fibrinogen dRVVT Confirm Interp Factor V Activity POC ABG pH POC ABG pCO2 POC ABG pO2 ABG pO2 ABG HCO3 ABG Base Excess ABG Hemoglobin Oxyhemoglobin Sodium Potassium Chloride Carbon Dioxide BUN Creatinine Glucose POC Glucose 55 L 199 H Lactic Acid Calcium Phosphorus Magnesium Direct Bilirubin AST ALT Alkaline Phosphatase Lactate Dehydrogenase Troponin T C-Reactive Protein Total Protein Albumin Prealbumin Triglycerides Cholesterol LDL Cholesterol Direct HDL Cholesterol Urine pH Urine WBC (Auto) Urine Creatinine Urine Total Protein Fluid Total Protein Vancomycin Trough Rheumatoid Factor Complement C4 Miscellaneous Test Crossmatch 10/03/16 10/03/16 10/03/16 05:10 12:14 13:18 WBC RBC Hgb Hct MCV MCH MCHC RDW Plt Count Lymph % (Auto) [place] % (Auto) Lymph # [place] # Baso # Seg Neutrophils % Seg Neuts % (Manual) Lymphocytes % (Manual) Monocytes % (Manual) Eosinophils % (Manual) Basophils % (Manual) Nucleated RBC % Seg Neutrophils # Seg Neutrophils # Man Lymphocytes # (Manual) Monocytes # (Manual) Eosinophils # (Manual) Basophils # (Manual) PT INR Fibrinogen dRVVT Confirm Interp Factor V Activity POC ABG pH POC ABG pCO2 POC ABG pO2 ABG pO2 ABG HCO3 ABG Base Excess ABG Hemoglobin Oxyhemoglobin Sodium 129 L Potassium 3.3 L Chloride 88.8 L Carbon Dioxide 20 L BUN 29 H Creatinine 2.8 H Glucose POC Glucose 68 L 127 H Lactic Acid Calcium 7.2 L Phosphorus Magnesium Direct Bilirubin AST ALT Alkaline Phosphatase Lactate Dehydrogenase Troponin T C-Reactive Protein Total Protein Albumin Prealbumin Triglycerides Cholesterol LDL Cholesterol Direct HDL Cholesterol Urine pH Urine WBC (Auto) Urine Creatinine Urine Total Protein Fluid Total Protein Vancomycin Trough Rheumatoid Factor Complement C4 Miscellaneous Test Crossmatch 10/03/16 10/03/16 10/03/16 14:42 18:21 19:09 WBC RBC Hgb Hct MCV MCH MCHC RDW Plt Count Lymph % (Auto) [place] % (Auto) Lymph # [place] # Baso # Seg Neutrophils % Seg Neuts % (Manual) Lymphocytes % (Manual) Monocytes % (Manual) Eosinophils % (Manual) Basophils % (Manual) Nucleated RBC % Seg Neutrophils # Seg Neutrophils # Man Lymphocytes # (Manual) Monocytes # (Manual) Eosinophils # (Manual) Basophils # (Manual) PT INR Fibrinogen dRVVT Confirm Interp Factor V Activity POC ABG pH 7.499 H POC ABG pCO2 28.4 L POC ABG pO2 44 L ABG pO2 ABG HCO3 ABG Base Excess ABG Hemoglobin Oxyhemoglobin Sodium Potassium Chloride Carbon Dioxide BUN Creatinine Glucose POC Glucose 64 L 205 H Lactic Acid Calcium Phosphorus Magnesium Direct Bilirubin AST ALT Alkaline Phosphatase Lactate Dehydrogenase Troponin T C-Reactive Protein Total Protein Albumin Prealbumin Triglycerides Cholesterol LDL Cholesterol Direct HDL Cholesterol Urine pH Urine WBC (Auto) Urine Creatinine Urine Total Protein Fluid Total Protein Vancomycin Trough Rheumatoid Factor Complement C4 Miscellaneous Test Crossmatch 10/03/16 10/04/16 10/04/16 23:33 04:18 06:30 WBC RBC 2.54 L Hgb 7.1 L Hct 21.7 L MCV MCH MCHC RDW 19.5 H Plt Count 76 L Lymph % (Auto) [place] % (Auto) Lymph # [place] # Baso # Seg Neutrophils % Seg Neuts % (Manual) 88.0 H Lymphocytes % (Manual) 6.0 L Monocytes % (Manual) Eosinophils % (Manual) Basophils % (Manual) Nucleated RBC % Seg Neutrophils # Seg Neutrophils # Man 8.8 H Lymphocytes # (Manual) 0.6 L Monocytes # (Manual) Eosinophils # (Manual) Basophils # (Manual) PT INR Fibrinogen dRVVT Confirm Interp Factor V Activity POC ABG pH 7.461 H POC ABG pCO2 33.6 L POC ABG pO2 211 H ABG pO2 ABG HCO3 ABG Base Excess ABG Hemoglobin Oxyhemoglobin Sodium Potassium Chloride Carbon Dioxide BUN Creatinine Glucose POC Glucose 136 H Lactic Acid Calcium Phosphorus Magnesium Direct Bilirubin AST ALT Alkaline Phosphatase Lactate Dehydrogenase Troponin T C-Reactive Protein Total Protein Albumin Prealbumin Triglycerides Cholesterol LDL Cholesterol Direct HDL Cholesterol Urine pH Urine WBC (Auto) Urine Creatinine Urine Total Protein Fluid Total Protein Vancomycin Trough Rheumatoid Factor Complement C4 Miscellaneous Test Crossmatch 10/04/16 10/04/16 10/04/16 06:30 11:45 17:54 WBC RBC Hgb Hct MCV MCH MCHC RDW Plt Count Lymph % (Auto) [place] % (Auto) Lymph # [place] # Baso # Seg Neutrophils % Seg Neuts % (Manual) Lymphocytes % (Manual) Monocytes % (Manual) Eosinophils % (Manual) Basophils % (Manual) Nucleated RBC % Seg Neutrophils # Seg Neutrophils # Man Lymphocytes # (Manual) Monocytes # (Manual) Eosinophils # (Manual) Basophils # (Manual) PT INR Fibrinogen dRVVT Confirm Interp Factor V Activity POC ABG pH POC ABG pCO2 POC ABG pO2 ABG pO2 ABG HCO3 ABG Base Excess ABG Hemoglobin Oxyhemoglobin Sodium 128 L Potassium Chloride 87.4 L Carbon Dioxide 20 L BUN 34 H Creatinine 2.9 H Glucose 127 H POC Glucose 158 H 160 H Lactic Acid Calcium 7.4 L Phosphorus Magnesium Direct Bilirubin AST ALT Alkaline Phosphatase Lactate Dehydrogenase Troponin T C-Reactive Protein Total Protein Albumin Prealbumin Triglycerides Cholesterol LDL Cholesterol Direct HDL Cholesterol Urine pH Urine WBC (Auto) Urine Creatinine Urine Total Protein Fluid Total Protein Vancomycin Trough Rheumatoid Factor Complement C4 Miscellaneous Test Crossmatch 10/04/16 10/05/16 10/05/16 23:25 04:30 05:00 WBC RBC 2.64 L Hgb 7.5 L Hct 22.6 L MCV MCH MCHC RDW 19.3 H Plt Count 80 L Lymph % (Auto) [place] % (Auto) Lymph # [place] # Baso # Seg Neutrophils % Seg Neuts % (Manual) Lymphocytes % (Manual) 12.0 L Monocytes % (Manual) Eosinophils % (Manual) Basophils % (Manual) Nucleated RBC % Seg Neutrophils # Seg Neutrophils # Man Lymphocytes # (Manual) Monocytes # (Manual) Eosinophils # (Manual) Basophils # (Manual) PT INR Fibrinogen dRVVT Confirm Interp Factor V Activity POC ABG pH 7.475 H POC ABG pCO2 33.3 L POC ABG pO2 140 H ABG pO2 ABG HCO3 ABG Base Excess ABG Hemoglobin Oxyhemoglobin Sodium Potassium Chloride Carbon Dioxide BUN Creatinine Glucose POC Glucose 141 H Lactic Acid Calcium Phosphorus Magnesium Direct Bilirubin AST ALT Alkaline Phosphatase Lactate Dehydrogenase Troponin T C-Reactive Protein Total Protein Albumin Prealbumin Triglycerides Cholesterol LDL Cholesterol Direct HDL Cholesterol Urine pH Urine WBC (Auto) Urine Creatinine Urine Total Protein Fluid Total Protein Vancomycin Trough Rheumatoid Factor Complement C4 Miscellaneous Test Crossmatch 10/05/16 10/05/16 10/05/16 05:00 05:09 12:58 WBC RBC Hgb Hct MCV MCH MCHC RDW Plt Count Lymph % (Auto) [place] % (Auto) Lymph # [place] # Baso # Seg Neutrophils % Seg Neuts % (Manual) Lymphocytes % (Manual) Monocytes % (Manual) Eosinophils % (Manual) Basophils % (Manual) Nucleated RBC % Seg Neutrophils # Seg Neutrophils # Man Lymphocytes # (Manual) Monocytes # (Manual) Eosinophils # (Manual) Basophils # (Manual) PT INR Fibrinogen dRVVT Confirm Interp Factor V Activity POC ABG pH POC ABG pCO2 POC ABG pO2 ABG pO2 ABG HCO3 ABG Base Excess ABG Hemoglobin Oxyhemoglobin Sodium 131 L Potassium Chloride 94.0 L Carbon Dioxide 20 L BUN 22 H Creatinine 2.0 H Glucose 123 H POC Glucose 166 H 179 H Lactic Acid Calcium 7.7 L Phosphorus 2.20 L D Magnesium Direct Bilirubin AST ALT Alkaline Phosphatase Lactate Dehydrogenase Troponin T C-Reactive Protein Total Protein Albumin Prealbumin Triglycerides Cholesterol LDL Cholesterol Direct HDL Cholesterol Urine pH Urine WBC (Auto) Urine Creatinine Urine Total Protein Fluid Total Protein Vancomycin Trough Rheumatoid Factor Complement C4 Miscellaneous Test Crossmatch 10/05/16 10/05/16 10/05/16 15:50 18:53 23:12 WBC RBC Hgb Hct MCV MCH MCHC RDW Plt Count Lymph % (Auto) [place] % (Auto) Lymph # [place] # Baso # Seg Neutrophils % Seg Neuts % (Manual) Lymphocytes % (Manual) Monocytes % (Manual) Eosinophils % (Manual) Basophils % (Manual) Nucleated RBC % Seg Neutrophils # Seg Neutrophils # Man Lymphocytes # (Manual) Monocytes # (Manual) Eosinophils # (Manual) Basophils # (Manual) PT INR Fibrinogen dRVVT Confirm Interp Factor V Activity POC ABG pH POC ABG pCO2 POC ABG pO2 ABG pO2 ABG HCO3 ABG Base Excess ABG Hemoglobin Oxyhemoglobin Sodium Potassium Chloride Carbon Dioxide BUN Creatinine Glucose POC Glucose 150 H 164 H Lactic Acid Calcium Phosphorus Magnesium Direct Bilirubin AST ALT Alkaline Phosphatase Lactate Dehydrogenase Troponin T C-Reactive Protein Total Protein Albumin Prealbumin Triglycerides Cholesterol LDL Cholesterol Direct HDL Cholesterol Urine pH Urine WBC (Auto) Urine Creatinine Urine Total Protein Fluid Total Protein Vancomycin Trough Rheumatoid Factor Complement C4 Miscellaneous Test Crossmatch See Detail 10/06/16 10/06/16 10/06/16 03:50 03:50 04:53 WBC RBC 3.00 L Hgb 8.6 L Hct 25.8 L MCV MCH MCHC RDW 17.9 H Plt Count 65 L Lymph % (Auto) [place] % (Auto) Lymph # [place] # Baso # Seg Neutrophils % Seg Neuts % (Manual) 30.0 L Lymphocytes % (Manual) 5.0 L Monocytes % (Manual) Eosinophils % (Manual) Basophils % (Manual) Nucleated RBC % Seg Neutrophils # Seg Neutrophils # Man Lymphocytes # (Manual) 0.4 L Monocytes # (Manual) Eosinophils # (Manual) Basophils # (Manual) PT INR Fibrinogen dRVVT Confirm Interp Factor V Activity POC ABG pH 7.310 L POC ABG pCO2 49.0 H POC ABG pO2 ABG pO2 ABG HCO3 ABG Base Excess ABG Hemoglobin Oxyhemoglobin Sodium 133 L Potassium Chloride 95.9 L Carbon Dioxide BUN 26 H Creatinine 2.0 H Glucose 116 H POC Glucose Lactic Acid Calcium 7.8 L Phosphorus Magnesium Direct Bilirubin AST ALT Alkaline Phosphatase Lactate Dehydrogenase Troponin T C-Reactive Protein Total Protein Albumin Prealbumin Triglycerides Cholesterol LDL Cholesterol Direct HDL Cholesterol Urine pH Urine WBC (Auto) Urine Creatinine Urine Total Protein Fluid Total Protein Vancomycin Trough Rheumatoid Factor Complement C4 Miscellaneous Test Crossmatch 10/06/16 10/06/16 10/06/16 05:23 11:52 18:34 WBC RBC Hgb Hct MCV MCH MCHC RDW Plt Count Lymph % (Auto) [place] % (Auto) Lymph # [place] # Baso # Seg Neutrophils % Seg Neuts % (Manual) Lymphocytes % (Manual) Monocytes % (Manual) Eosinophils % (Manual) Basophils % (Manual) Nucleated RBC % Seg Neutrophils # Seg Neutrophils # Man Lymphocytes # (Manual) Monocytes # (Manual) Eosinophils # (Manual) Basophils # (Manual) PT INR Fibrinogen dRVVT Confirm Interp Factor V Activity POC ABG pH POC ABG pCO2 POC ABG pO2 ABG pO2 ABG HCO3 ABG Base Excess ABG Hemoglobin Oxyhemoglobin Sodium Potassium Chloride Carbon Dioxide BUN Creatinine Glucose POC Glucose 126 H 116 H 129 H Lactic Acid Calcium Phosphorus Magnesium Direct Bilirubin AST ALT Alkaline Phosphatase Lactate Dehydrogenase Troponin T C-Reactive Protein Total Protein Albumin Prealbumin Triglycerides Cholesterol LDL Cholesterol Direct HDL Cholesterol Urine pH Urine WBC (Auto) Urine Creatinine Urine Total Protein Fluid Total Protein Vancomycin Trough Rheumatoid Factor Complement C4 Miscellaneous Test Crossmatch 10/07/16 10/07/16 10/07/16 03:45 05:00 10:00 WBC 17.0 H RBC 2.68 L Hgb 7.3 L Hct 25.3 L MCV MCH 27 L MCHC 29 L RDW 19.6 H Plt Count 74 L Lymph % (Auto) [place] % (Auto) Lymph # [place] # Baso # Seg Neutrophils % Seg Neuts % (Manual) Lymphocytes % (Manual) 12.0 L Monocytes % (Manual) Eosinophils % (Manual) Basophils % (Manual) Nucleated RBC % 4.0 H Seg Neutrophils # Seg Neutrophils # Man 10.7 H Lymphocytes # (Manual) Monocytes # (Manual) Eosinophils # (Manual) Basophils # (Manual) PT INR Fibrinogen dRVVT Confirm Interp Factor V Activity POC ABG pH POC ABG pCO2 POC ABG pO2 ABG pO2 ABG HCO3 ABG Base Excess ABG Hemoglobin Oxyhemoglobin Sodium 130 L Potassium 3.2 L Chloride 93.9 L Carbon Dioxide 20 L BUN 44 H Creatinine 2.7 H Glucose 129 H POC Glucose Lactic Acid Calcium 7.4 L Phosphorus Magnesium Direct Bilirubin AST ALT 6 L Alkaline Phosphatase 195 H Lactate Dehydrogenase Troponin T C-Reactive Protein Total Protein 4.9 L Albumin 1.0 L Prealbumin Triglycerides Cholesterol LDL Cholesterol Direct HDL Cholesterol Urine pH Urine WBC (Auto) Urine Creatinine Urine Total Protein Fluid Total Protein Vancomycin Trough Rheumatoid Factor Complement C4 Miscellaneous Test Flexitest 1 H Crossmatch 10/07/16 10/07/16 10/07/16 10:00 11:24 18:10 WBC RBC Hgb Hct MCV MCH MCHC RDW Plt Count Lymph % (Auto) [place] % (Auto) Lymph # [place] # Baso # Seg Neutrophils % Seg Neuts % (Manual) Lymphocytes % (Manual) Monocytes % (Manual) Eosinophils % (Manual) Basophils % (Manual) Nucleated RBC % Seg Neutrophils # Seg Neutrophils # Man Lymphocytes # (Manual) Monocytes # (Manual) Eosinophils # (Manual) Basophils # (Manual) PT INR Fibrinogen dRVVT Confirm Interp Factor V Activity POC ABG pH POC ABG pCO2 POC ABG pO2 ABG pO2 ABG HCO3 ABG Base Excess ABG Hemoglobin Oxyhemoglobin Sodium Potassium Chloride Carbon Dioxide BUN Creatinine Glucose POC Glucose 116 H 130 H Lactic Acid Calcium Phosphorus Magnesium Direct Bilirubin AST ALT Alkaline Phosphatase Lactate Dehydrogenase Troponin T C-Reactive Protein 19.40 H Total Protein Albumin Prealbumin Triglycerides Cholesterol LDL Cholesterol Direct HDL Cholesterol Urine pH Urine WBC (Auto) Urine Creatinine Urine Total Protein Fluid Total Protein Vancomycin Trough Rheumatoid Factor Complement C4 Miscellaneous Test Crossmatch 10/07/16 10/08/16 10/08/16 18:30 00:00 04:00 WBC RBC Hgb Hct MCV MCH MCHC RDW Plt Count Lymph % (Auto) [place] % (Auto) Lymph # [place] # Baso # Seg Neutrophils % Seg Neuts % (Manual) Lymphocytes % (Manual) Monocytes % (Manual) Eosinophils % (Manual) Basophils % (Manual) Nucleated RBC % Seg Neutrophils # Seg Neutrophils # Man Lymphocytes # (Manual) Monocytes # (Manual) Eosinophils # (Manual) Basophils # (Manual) PT INR Fibrinogen dRVVT Confirm Interp Factor V Activity POC ABG pH POC ABG pCO2 POC ABG pO2 ABG pO2 ABG HCO3 ABG Base Excess ABG Hemoglobin Oxyhemoglobin Sodium 132 L Potassium 3.3 L Chloride 93.6 L Carbon Dioxide 17 L BUN 59 H Creatinine 2.7 H Glucose 121 H POC Glucose 122 H Lactic Acid Calcium 7.6 L Phosphorus Magnesium Direct Bilirubin AST ALT Alkaline Phosphatase Lactate Dehydrogenase Troponin T C-Reactive Protein Total Protein Albumin Prealbumin Triglycerides Cholesterol LDL Cholesterol Direct HDL Cholesterol Urine pH Urine WBC (Auto) > 182.0 H Urine Creatinine Urine Total Protein Fluid Total Protein Vancomycin Trough Rheumatoid Factor Complement C4 Miscellaneous Test Crossmatch 10/08/16 10/08/16 10/08/16 04:30 05:30 11:51 WBC RBC 5.15 H Hgb 14.4 H D Hct 44.5 H D MCV MCH MCHC RDW 19.5 H Plt Count 56 L Lymph % (Auto) [place] % (Auto) Lymph # [place] # Baso # Seg Neutrophils % Seg Neuts % (Manual) 24.0 L Lymphocytes % (Manual) 8.0 L Monocytes % (Manual) Eosinophils % (Manual) Basophils % (Manual) Nucleated RBC % 9.0 H Seg Neutrophils # Seg Neutrophils # Man Lymphocytes # (Manual) 0.7 L Monocytes # (Manual) Eosinophils # (Manual) Basophils # (Manual) PT INR Fibrinogen dRVVT Confirm Interp Factor V Activity POC ABG pH POC ABG pCO2 POC ABG pO2 ABG pO2 ABG HCO3 ABG Base Excess ABG Hemoglobin Oxyhemoglobin Sodium Potassium Chloride Carbon Dioxide BUN Creatinine Glucose POC Glucose 125 H 150 H Lactic Acid Calcium Phosphorus Magnesium Direct Bilirubin AST ALT Alkaline Phosphatase Lactate Dehydrogenase Troponin T C-Reactive Protein Total Protein Albumin Prealbumin Triglycerides Cholesterol LDL Cholesterol Direct HDL Cholesterol Urine pH Urine WBC (Auto) Urine Creatinine Urine Total Protein Fluid Total Protein Vancomycin Trough Rheumatoid Factor Complement C4 Miscellaneous Test Crossmatch 10/08/16 10/08/16 10/08/16 12:49 17:07 19:30 WBC RBC Hgb 7.1 L D Hct 22.4 L D MCV MCH MCHC RDW Plt Count Lymph % (Auto) [place] % (Auto) Lymph # [place] # Baso # Seg Neutrophils % Seg Neuts % (Manual) Lymphocytes % (Manual) Monocytes % (Manual) Eosinophils % (Manual) Basophils % (Manual) Nucleated RBC % Seg Neutrophils # Seg Neutrophils # Man Lymphocytes # (Manual) Monocytes # (Manual) Eosinophils # (Manual) Basophils # (Manual) PT INR Fibrinogen dRVVT Confirm Interp Factor V Activity POC ABG pH POC ABG pCO2 28.2 L POC ABG pO2 111 H ABG pO2 ABG HCO3 ABG Base Excess ABG Hemoglobin Oxyhemoglobin Sodium Potassium Chloride Carbon Dioxide BUN Creatinine Glucose POC Glucose 145 H Lactic Acid Calcium Phosphorus Magnesium Direct Bilirubin AST ALT Alkaline Phosphatase Lactate Dehydrogenase Troponin T C-Reactive Protein Total Protein Albumin Prealbumin Triglycerides Cholesterol LDL Cholesterol Direct HDL Cholesterol Urine pH Urine WBC (Auto) Urine Creatinine Urine Total Protein Fluid Total Protein Vancomycin Trough Rheumatoid Factor Complement C4 Miscellaneous Test Crossmatch 10/08/16 10/09/16 10/09/16 19:30 03:45 03:45 WBC 12.6 H RBC 2.36 L Hgb 6.7 L Hct 21.1 L MCV MCH MCHC RDW 19.5 H Plt Count 75 L Lymph % (Auto) [place] % (Auto) Lymph # [place] # Baso # Seg Neutrophils % Seg Neuts % (Manual) Lymphocytes % (Manual) Monocytes % (Manual) 10.0 H Eosinophils % (Manual) Basophils % (Manual) Nucleated RBC % 3.0 H Seg Neutrophils # Seg Neutrophils # Man Lymphocytes # (Manual) Monocytes # (Manual) 1.3 H Eosinophils # (Manual) Basophils # (Manual) PT 18.0 H INR 1.41 H Fibrinogen dRVVT Confirm Interp Factor V Activity POC ABG pH POC ABG pCO2 POC ABG pO2 ABG pO2 ABG HCO3 ABG Base Excess ABG Hemoglobin Oxyhemoglobin Sodium 135 L Potassium Chloride Carbon Dioxide 17 L BUN 81 H Creatinine 3.2 H Glucose 109 H POC Glucose Lactic Acid Calcium 7.4 L Phosphorus 4.60 H D Magnesium Direct Bilirubin AST ALT Alkaline Phosphatase Lactate Dehydrogenase Troponin T C-Reactive Protein Total Protein Albumin Prealbumin Triglycerides Cholesterol LDL Cholesterol Direct HDL Cholesterol Urine pH Urine WBC (Auto) Urine Creatinine Urine Total Protein Fluid Total Protein Vancomycin Trough Rheumatoid Factor Complement C4 Miscellaneous Test Crossmatch 10/09/16 10/09/16 10/09/16 03:45 05:14 07:20 WBC RBC Hgb Hct MCV MCH MCHC RDW Plt Count Lymph % (Auto) [place] % (Auto) Lymph # [place] # Baso # Seg Neutrophils % Seg Neuts % (Manual) Lymphocytes % (Manual) Monocytes % (Manual) Eosinophils % (Manual) Basophils % (Manual) Nucleated RBC % Seg Neutrophils # Seg Neutrophils # Man Lymphocytes # (Manual) Monocytes # (Manual) Eosinophils # (Manual) Basophils # (Manual) PT 19.0 H INR 1.51 H Fibrinogen dRVVT Confirm Interp Factor V Activity POC ABG pH POC ABG pCO2 POC ABG pO2 ABG pO2 ABG HCO3 ABG Base Excess ABG Hemoglobin Oxyhemoglobin Sodium Potassium Chloride Carbon Dioxide BUN Creatinine Glucose POC Glucose 151 H Lactic Acid Calcium Phosphorus Magnesium Direct Bilirubin AST ALT Alkaline Phosphatase Lactate Dehydrogenase Troponin T C-Reactive Protein Total Protein Albumin Prealbumin Triglycerides Cholesterol LDL Cholesterol Direct HDL Cholesterol Urine pH Urine WBC (Auto) Urine Creatinine Urine Total Protein Fluid Total Protein Vancomycin Trough Rheumatoid Factor Complement C4 Miscellaneous Test Crossmatch See Detail 10/09/16 10/09/16 10/09/16 11:46 16:20 16:43 WBC RBC Hgb 7.2 L Hct 22.2 L MCV MCH MCHC RDW Plt Count Lymph % (Auto) [place] % (Auto) Lymph # [place] # Baso # Seg Neutrophils % Seg Neuts % (Manual) Lymphocytes % (Manual) Monocytes % (Manual) Eosinophils % (Manual) Basophils % (Manual) Nucleated RBC % Seg Neutrophils # Seg Neutrophils # Man Lymphocytes # (Manual) Monocytes # (Manual) Eosinophils # (Manual) Basophils # (Manual) PT INR Fibrinogen dRVVT Confirm Interp Factor V Activity POC ABG pH POC ABG pCO2 POC ABG pO2 ABG pO2 ABG HCO3 ABG Base Excess ABG Hemoglobin Oxyhemoglobin Sodium Potassium Chloride Carbon Dioxide BUN Creatinine Glucose POC Glucose 133 H 141 H Lactic Acid Calcium Phosphorus Magnesium Direct Bilirubin AST ALT Alkaline Phosphatase Lactate Dehydrogenase Troponin T C-Reactive Protein Total Protein Albumin Prealbumin Triglycerides Cholesterol LDL Cholesterol Direct HDL Cholesterol Urine pH Urine WBC (Auto) Urine Creatinine Urine Total Protein Fluid Total Protein Vancomycin Trough Rheumatoid Factor Complement C4 Miscellaneous Test Crossmatch 10/10/16 10/10/16 10/10/16 05:00 05:00 11:19 WBC 18.5 H RBC 2.19 L Hgb 6.4 L Hct 19.6 L* MCV MCH MCHC RDW 19.3 H Plt Count 93 L Lymph % (Auto) [place] % (Auto) Lymph # [place] # Baso # Seg Neutrophils % Seg Neuts % (Manual) Lymphocytes % (Manual) 10.0 L Monocytes % (Manual) Eosinophils % (Manual) Basophils % (Manual) Nucleated RBC % 4.0 H Seg Neutrophils # Seg Neutrophils # Man 11.3 H Lymphocytes # (Manual) Monocytes # (Manual) Eosinophils # (Manual) Basophils # (Manual) PT INR Fibrinogen dRVVT Confirm Interp Factor V Activity POC ABG pH POC ABG pCO2 POC ABG pO2 ABG pO2 ABG HCO3 ABG Base Excess ABG Hemoglobin Oxyhemoglobin Sodium Potassium 5.7 H D Chloride Carbon Dioxide 16 L BUN 94 H Creatinine 3.1 H Glucose 131 H POC Glucose 153 H Lactic Acid Calcium 8.2 L Phosphorus 5.10 H Magnesium 2.40 H Direct Bilirubin 0.3 H AST ALT < 5 L Alkaline Phosphatase 319 H Lactate Dehydrogenase Troponin T C-Reactive Protein Total Protein 5.1 L Albumin 1.0 L Prealbumin Triglycerides Cholesterol LDL Cholesterol Direct HDL Cholesterol Urine pH Urine WBC (Auto) Urine Creatinine Urine Total Protein Fluid Total Protein Vancomycin Trough Rheumatoid Factor Complement C4 Miscellaneous Test Crossmatch 10/10/16 10/10/16 10/11/16 17:50 23:30 04:15 WBC RBC Hgb Hct MCV MCH MCHC RDW Plt Count Lymph % (Auto) [place] % (Auto) Lymph # [place] # Baso # Seg Neutrophils % Seg Neuts % (Manual) Lymphocytes % (Manual) Monocytes % (Manual) Eosinophils % (Manual) Basophils % (Manual) Nucleated RBC % Seg Neutrophils # Seg Neutrophils # Man Lymphocytes # (Manual) Monocytes # (Manual) Eosinophils # (Manual) Basophils # (Manual) PT INR Fibrinogen dRVVT Confirm Interp Factor V Activity POC ABG pH POC ABG pCO2 POC ABG pO2 ABG pO2 ABG HCO3 ABG Base Excess ABG Hemoglobin Oxyhemoglobin Sodium Potassium Chloride 96.4 L Carbon Dioxide 21 L BUN 57 H Creatinine 2.1 H Glucose 151 H POC Glucose 146 H 141 H Lactic Acid Calcium 8.3 L Phosphorus Magnesium Direct Bilirubin AST ALT Alkaline Phosphatase Lactate Dehydrogenase Troponin T C-Reactive Protein Total Protein Albumin Prealbumin Triglycerides Cholesterol LDL Cholesterol Direct HDL Cholesterol Urine pH Urine WBC (Auto) Urine Creatinine Urine Total Protein Fluid Total Protein Vancomycin Trough Rheumatoid Factor Complement C4 Miscellaneous Test Crossmatch 10/11/16 10/11/16 10/11/16 04:15 04:15 05:30 WBC 28.3 H RBC 3.12 L Hgb 9.3 L Hct 28.7 L D MCV MCH MCHC RDW 17.7 H Plt Count 128 L Lymph % (Auto) [place] % (Auto) Lymph # [place] # Baso # Seg Neutrophils % Seg Neuts % (Manual) Lymphocytes % (Manual) Monocytes % (Manual) Eosinophils % (Manual) Basophils % (Manual) Nucleated RBC % Seg Neutrophils # Seg Neutrophils # Man Lymphocytes # (Manual) Monocytes # (Manual) Eosinophils # (Manual) Basophils # (Manual) PT INR Fibrinogen dRVVT Confirm Interp Factor V Activity POC ABG pH POC ABG pCO2 POC ABG pO2 ABG pO2 ABG HCO3 ABG Base Excess ABG Hemoglobin Oxyhemoglobin Sodium Potassium Chloride Carbon Dioxide BUN Creatinine Glucose POC Glucose 167 H Lactic Acid Calcium Phosphorus Magnesium Direct Bilirubin AST ALT Alkaline Phosphatase Lactate Dehydrogenase Troponin T C-Reactive Protein 15.80 H Total Protein Albumin Prealbumin Triglycerides Cholesterol LDL Cholesterol Direct HDL Cholesterol Urine pH Urine WBC (Auto) Urine Creatinine Urine Total Protein Fluid Total Protein Vancomycin Trough Rheumatoid Factor Complement C4 Miscellaneous Test Crossmatch 10/11/16 10/11/16 10/11/16 11:40 15:49 23:57 WBC RBC Hgb Hct MCV MCH MCHC RDW Plt Count Lymph % (Auto) [place] % (Auto) Lymph # [place] # Baso # Seg Neutrophils % Seg Neuts % (Manual) Lymphocytes % (Manual) Monocytes % (Manual) Eosinophils % (Manual) Basophils % (Manual) Nucleated RBC % Seg Neutrophils # Seg Neutrophils # Man Lymphocytes # (Manual) Monocytes # (Manual) Eosinophils # (Manual) Basophils # (Manual) PT INR Fibrinogen dRVVT Confirm Interp Factor V Activity POC ABG pH POC ABG pCO2 POC ABG pO2 ABG pO2 ABG HCO3 ABG Base Excess ABG Hemoglobin Oxyhemoglobin Sodium Potassium Chloride Carbon Dioxide BUN Creatinine Glucose POC Glucose 139 H 168 H 161 H Lactic Acid Calcium Phosphorus Magnesium Direct Bilirubin AST ALT Alkaline Phosphatase Lactate Dehydrogenase Troponin T C-Reactive Protein Total Protein Albumin Prealbumin Triglycerides Cholesterol LDL Cholesterol Direct HDL Cholesterol Urine pH Urine WBC (Auto) Urine Creatinine Urine Total Protein Fluid Total Protein Vancomycin Trough Rheumatoid Factor Complement C4 Miscellaneous Test Crossmatch 10/12/16 10/12/16 10/12/16 04:40 04:40 05:44 WBC 22.5 H RBC 2.88 L Hgb 8.8 L Hct 26.8 L MCV MCH MCHC RDW 17.8 H Plt Count Lymph % (Auto) [place] % (Auto) Lymph # [place] # Baso # Seg Neutrophils % Seg Neuts % (Manual) Lymphocytes % (Manual) Monocytes % (Manual) Eosinophils % (Manual) Basophils % (Manual) Nucleated RBC % Seg Neutrophils # Seg Neutrophils # Man Lymphocytes # (Manual) Monocytes # (Manual) Eosinophils # (Manual) Basophils # (Manual) PT INR Fibrinogen dRVVT Confirm Interp Factor V Activity POC ABG pH POC ABG pCO2 POC ABG pO2 ABG pO2 ABG HCO3 ABG Base Excess ABG Hemoglobin Oxyhemoglobin Sodium 134 L Potassium Chloride 93.0 L Carbon Dioxide BUN 74 H Creatinine 2.5 H Glucose 137 H POC Glucose 158 H Lactic Acid Calcium 8.2 L Phosphorus Magnesium Direct Bilirubin AST ALT Alkaline Phosphatase Lactate Dehydrogenase Troponin T C-Reactive Protein Total Protein Albumin Prealbumin Triglycerides Cholesterol LDL Cholesterol Direct HDL Cholesterol Urine pH Urine WBC (Auto) Urine Creatinine Urine Total Protein Fluid Total Protein Vancomycin Trough Rheumatoid Factor Complement C4 Miscellaneous Test Crossmatch 10/12/16 10/12/16 10/12/16 12:27 18:18 23:46 WBC RBC Hgb Hct MCV MCH MCHC RDW Plt Count Lymph % (Auto) [place] % (Auto) Lymph # [place] # Baso # Seg Neutrophils % Seg Neuts % (Manual) Lymphocytes % (Manual) Monocytes % (Manual) Eosinophils % (Manual) Basophils % (Manual) Nucleated RBC % Seg Neutrophils # Seg Neutrophils # Man Lymphocytes # (Manual) Monocytes # (Manual) Eosinophils # (Manual) Basophils # (Manual) PT INR Fibrinogen dRVVT Confirm Interp Factor V Activity POC ABG pH POC ABG pCO2 POC ABG pO2 ABG pO2 ABG HCO3 ABG Base Excess ABG Hemoglobin Oxyhemoglobin Sodium Potassium Chloride Carbon Dioxide BUN Creatinine Glucose POC Glucose 153 H 140 H 150 H Lactic Acid Calcium Phosphorus Magnesium Direct Bilirubin AST ALT Alkaline Phosphatase Lactate Dehydrogenase Troponin T C-Reactive Protein Total Protein Albumin Prealbumin Triglycerides Cholesterol LDL Cholesterol Direct HDL Cholesterol Urine pH Urine WBC (Auto) Urine Creatinine Urine Total Protein Fluid Total Protein Vancomycin Trough Rheumatoid Factor Complement C4 Miscellaneous Test Crossmatch 10/13/16 10/13/16 10/13/16 06:22 09:20 12:29 WBC RBC Hgb Hct MCV MCH MCHC RDW Plt Count Lymph % (Auto) [place] % (Auto) Lymph # [place] # Baso # Seg Neutrophils % Seg Neuts % (Manual) Lymphocytes % (Manual) Monocytes % (Manual) Eosinophils % (Manual) Basophils % (Manual) Nucleated RBC % Seg Neutrophils # Seg Neutrophils # Man Lymphocytes # (Manual) Monocytes # (Manual) Eosinophils # (Manual) Basophils # (Manual) PT INR Fibrinogen dRVVT Confirm Interp Factor V Activity POC ABG pH POC ABG pCO2 POC ABG pO2 ABG pO2 ABG HCO3 ABG Base Excess ABG Hemoglobin Oxyhemoglobin Sodium Potassium Chloride Carbon Dioxide BUN Creatinine Glucose POC Glucose 165 H 193 H Lactic Acid Calcium Phosphorus Magnesium Direct Bilirubin AST ALT Alkaline Phosphatase Lactate Dehydrogenase Troponin T C-Reactive Protein Total Protein Albumin Prealbumin Triglycerides Cholesterol LDL Cholesterol Direct HDL Cholesterol Urine pH Urine WBC (Auto) Urine Creatinine Urine Total Protein Fluid Total Protein Vancomycin Trough Rheumatoid Factor Complement C4 Miscellaneous Test Flexitest 1 H Crossmatch 10/13/16 10/13/16 10/13/16 18:09 Unknown Unknown WBC 23.4 H RBC 2.83 L Hgb 8.7 L Hct 26.1 L MCV MCH MCHC RDW 18.1 H Plt Count Lymph % (Auto) [place] % (Auto) Lymph # [place] # Baso # Seg Neutrophils % Seg Neuts % (Manual) Lymphocytes % (Manual) Monocytes % (Manual) Eosinophils % (Manual) Basophils % (Manual) Nucleated RBC % Seg Neutrophils # Seg Neutrophils # Man Lymphocytes # (Manual) Monocytes # (Manual) Eosinophils # (Manual) Basophils # (Manual) PT INR Fibrinogen dRVVT Confirm Interp Factor V Activity POC ABG pH POC ABG pCO2 POC ABG pO2 ABG pO2 ABG HCO3 ABG Base Excess ABG Hemoglobin Oxyhemoglobin Sodium Potassium Chloride 95.8 L Carbon Dioxide BUN 82 H Creatinine 2.6 H Glucose 152 H POC Glucose 166 H Lactic Acid Calcium Phosphorus Magnesium Direct Bilirubin AST ALT Alkaline Phosphatase Lactate Dehydrogenase Troponin T C-Reactive Protein Total Protein Albumin Prealbumin Triglycerides Cholesterol LDL Cholesterol Direct HDL Cholesterol Urine pH Urine WBC (Auto) Urine Creatinine Urine Total Protein Fluid Total Protein Vancomycin Trough Rheumatoid Factor Complement C4 Miscellaneous Test Crossmatch 10/14/16 10/14/16 10/14/16 05:38 06:35 08:10 WBC 20.7 H RBC 2.81 L Hgb 8.4 L Hct 27.2 L MCV MCH MCHC RDW 19.4 H Plt Count Lymph % (Auto) [place] % (Auto) Lymph # [place] # Baso # Seg Neutrophils % Seg Neuts % (Manual) Lymphocytes % (Manual) Monocytes % (Manual) Eosinophils % (Manual) Basophils % (Manual) Nucleated RBC % Seg Neutrophils # Seg Neutrophils # Man Lymphocytes # (Manual) Monocytes # (Manual) Eosinophils # (Manual) Basophils # (Manual) PT INR Fibrinogen dRVVT Confirm Interp Factor V Activity POC ABG pH POC ABG pCO2 POC ABG pO2 ABG pO2 ABG HCO3 ABG Base Excess ABG Hemoglobin Oxyhemoglobin Sodium Potassium Chloride Carbon Dioxide BUN 58 H Creatinine 1.9 H Glucose 169 H POC Glucose 195 H Lactic Acid Calcium Phosphorus Magnesium Direct Bilirubin AST ALT Alkaline Phosphatase Lactate Dehydrogenase Troponin T C-Reactive Protein Total Protein Albumin Prealbumin Triglycerides Cholesterol LDL Cholesterol Direct HDL Cholesterol Urine pH Urine WBC (Auto) Urine Creatinine Urine Total Protein Fluid Total Protein Vancomycin Trough Rheumatoid Factor Complement C4 Miscellaneous Test Crossmatch 10/14/16 10/14/16 10/14/16 11:44 17:13 23:28 WBC RBC Hgb Hct MCV MCH MCHC RDW Plt Count Lymph % (Auto) [place] % (Auto) Lymph # [place] # Baso # Seg Neutrophils % Seg Neuts % (Manual) Lymphocytes % (Manual) Monocytes % (Manual) Eosinophils % (Manual) Basophils % (Manual) Nucleated RBC % Seg Neutrophils # Seg Neutrophils # Man Lymphocytes # (Manual) Monocytes # (Manual) Eosinophils # (Manual) Basophils # (Manual) PT INR Fibrinogen dRVVT Confirm Interp Factor V Activity POC ABG pH POC ABG pCO2 POC ABG pO2 ABG pO2 ABG HCO3 ABG Base Excess ABG Hemoglobin Oxyhemoglobin Sodium Potassium Chloride Carbon Dioxide BUN Creatinine Glucose POC Glucose 174 H 121 H 151 H Lactic Acid Calcium Phosphorus Magnesium Direct Bilirubin AST ALT Alkaline Phosphatase Lactate Dehydrogenase Troponin T C-Reactive Protein Total Protein Albumin Prealbumin Triglycerides Cholesterol LDL Cholesterol Direct HDL Cholesterol Urine pH Urine WBC (Auto) Urine Creatinine Urine Total Protein Fluid Total Protein Vancomycin Trough Rheumatoid Factor Complement C4 Miscellaneous Test Crossmatch 10/15/16 10/15/16 10/15/16 05:06 12:26 17:48 WBC RBC Hgb Hct MCV MCH MCHC RDW Plt Count Lymph % (Auto) [place] % (Auto) Lymph # [place] # Baso # Seg Neutrophils % Seg Neuts % (Manual) Lymphocytes % (Manual) Monocytes % (Manual) Eosinophils % (Manual) Basophils % (Manual) Nucleated RBC % Seg Neutrophils # Seg Neutrophils # Man Lymphocytes # (Manual) Monocytes # (Manual) Eosinophils # (Manual) Basophils # (Manual) PT INR Fibrinogen dRVVT Confirm Interp Factor V Activity POC ABG pH POC ABG pCO2 POC ABG pO2 ABG pO2 ABG HCO3 ABG Base Excess ABG Hemoglobin Oxyhemoglobin Sodium Potassium Chloride Carbon Dioxide BUN Creatinine Glucose POC Glucose 151 H 149 H 153 H Lactic Acid Calcium Phosphorus Magnesium Direct Bilirubin AST ALT Alkaline Phosphatase Lactate Dehydrogenase Troponin T C-Reactive Protein Total Protein Albumin Prealbumin Triglycerides Cholesterol LDL Cholesterol Direct HDL Cholesterol Urine pH Urine WBC (Auto) Urine Creatinine Urine Total Protein Fluid Total Protein Vancomycin Trough Rheumatoid Factor Complement C4 Miscellaneous Test Crossmatch 10/15/16 10/15/16 10/16/16 Unknown Unknown 00:02 WBC 23.4 H RBC 2.78 L Hgb 8.5 L Hct 25.7 L MCV MCH MCHC RDW 18.7 H Plt Count Lymph % (Auto) [place] % (Auto) Lymph # [place] # Baso # Seg Neutrophils % Seg Neuts % (Manual) Lymphocytes % (Manual) Monocytes % (Manual) Eosinophils % (Manual) Basophils % (Manual) Nucleated RBC % Seg Neutrophils # Seg Neutrophils # Man Lymphocytes # (Manual) Monocytes # (Manual) Eosinophils # (Manual) Basophils # (Manual) PT INR Fibrinogen dRVVT Confirm Interp Factor V Activity POC ABG pH POC ABG pCO2 POC ABG pO2 ABG pO2 ABG HCO3 ABG Base Excess ABG Hemoglobin Oxyhemoglobin Sodium Potassium Chloride Carbon Dioxide BUN 73 H Creatinine 2.3 H Glucose 120 H POC Glucose 137 H Lactic Acid Calcium Phosphorus Magnesium Direct Bilirubin AST ALT Alkaline Phosphatase Lactate Dehydrogenase Troponin T C-Reactive Protein Total Protein Albumin Prealbumin Triglycerides Cholesterol LDL Cholesterol Direct HDL Cholesterol Urine pH Urine WBC (Auto) Urine Creatinine Urine Total Protein Fluid Total Protein Vancomycin Trough Rheumatoid Factor Complement C4 Miscellaneous Test Crossmatch 10/16/16 10/16/16 10/16/16 05:44 06:25 06:25 WBC 22.5 H RBC 2.76 L Hgb 8.3 L Hct 25.2 L MCV MCH MCHC RDW 18.3 H Plt Count Lymph % (Auto) [place] % (Auto) Lymph # [place] # Baso # Seg Neutrophils % Seg Neuts % (Manual) Lymphocytes % (Manual) Monocytes % (Manual) Eosinophils % (Manual) Basophils % (Manual) Nucleated RBC % Seg Neutrophils # Seg Neutrophils # Man Lymphocytes # (Manual) Monocytes # (Manual) Eosinophils # (Manual) Basophils # (Manual) PT INR Fibrinogen dRVVT Confirm Interp Factor V Activity POC ABG pH POC ABG pCO2 POC ABG pO2 ABG pO2 ABG HCO3 ABG Base Excess ABG Hemoglobin Oxyhemoglobin Sodium Potassium Chloride Carbon Dioxide BUN 92 H Creatinine 3.0 H Glucose 138 H POC Glucose 110 H Lactic Acid Calcium Phosphorus Magnesium Direct Bilirubin AST ALT Alkaline Phosphatase Lactate Dehydrogenase Troponin T C-Reactive Protein Total Protein Albumin Prealbumin Triglycerides Cholesterol LDL Cholesterol Direct HDL Cholesterol Urine pH Urine WBC (Auto) Urine Creatinine Urine Total Protein Fluid Total Protein Vancomycin Trough Rheumatoid Factor Complement C4 Miscellaneous Test Crossmatch 10/16/16 10/16/16 10/16/16 11:27 11:48 17:36 WBC RBC Hgb Hct MCV MCH MCHC RDW Plt Count Lymph % (Auto) [place] % (Auto) Lymph # [place] # Baso # Seg Neutrophils % Seg Neuts % (Manual) Lymphocytes % (Manual) Monocytes % (Manual) Eosinophils % (Manual) Basophils % (Manual) Nucleated RBC % Seg Neutrophils # Seg Neutrophils # Man Lymphocytes # (Manual) Monocytes # (Manual) Eosinophils # (Manual) Basophils # (Manual) PT INR Fibrinogen dRVVT Confirm Interp Factor V Activity POC ABG pH 7.582 H POC ABG pCO2 27.4 L POC ABG pO2 110 H ABG pO2 ABG HCO3 ABG Base Excess ABG Hemoglobin Oxyhemoglobin Sodium Potassium Chloride Carbon Dioxide BUN Creatinine Glucose POC Glucose 121 H 133 H Lactic Acid Calcium Phosphorus Magnesium Direct Bilirubin AST ALT Alkaline Phosphatase Lactate Dehydrogenase Troponin T C-Reactive Protein Total Protein Albumin Prealbumin Triglycerides Cholesterol LDL Cholesterol Direct HDL Cholesterol Urine pH Urine WBC (Auto) Urine Creatinine Urine Total Protein Fluid Total Protein Vancomycin Trough Rheumatoid Factor Complement C4 Miscellaneous Test Crossmatch 10/16/16 10/17/16 10/17/16 20:48 04:24 04:24 WBC 21.4 H RBC 2.72 L Hgb 8.0 L Hct 25.2 L MCV MCH MCHC RDW 18.0 H Plt Count Lymph % (Auto) [place] % (Auto) Lymph # [place] # Baso # Seg Neutrophils % Seg Neuts % (Manual) Lymphocytes % (Manual) Monocytes % (Manual) Eosinophils % (Manual) Basophils % (Manual) Nucleated RBC % Seg Neutrophils # Seg Neutrophils # Man Lymphocytes # (Manual) Monocytes # (Manual) Eosinophils # (Manual) Basophils # (Manual) PT INR Fibrinogen dRVVT Confirm Interp Factor V Activity POC ABG pH 7.561 H POC ABG pCO2 24.4 L POC ABG pO2 77 L ABG pO2 ABG HCO3 ABG Base Excess ABG Hemoglobin Oxyhemoglobin Sodium 148 H Potassium Chloride Carbon Dioxide BUN 104 H Creatinine 3.0 H Glucose 149 H POC Glucose Lactic Acid Calcium Phosphorus Magnesium Direct Bilirubin AST ALT Alkaline Phosphatase 138 H Lactate Dehydrogenase Troponin T C-Reactive Protein Total Protein 6.2 L Albumin 1.5 L Prealbumin Triglycerides Cholesterol LDL Cholesterol Direct HDL Cholesterol Urine pH Urine WBC (Auto) Urine Creatinine Urine Total Protein Fluid Total Protein Vancomycin Trough Rheumatoid Factor Complement C4 Miscellaneous Test Crossmatch 10/17/16 10/17/16 10/17/16 06:02 12:17 17:14 WBC RBC Hgb Hct MCV MCH MCHC RDW Plt Count Lymph % (Auto) [place] % (Auto) Lymph # [place] # Baso # Seg Neutrophils % Seg Neuts % (Manual) Lymphocytes % (Manual) Monocytes % (Manual) Eosinophils % (Manual) Basophils % (Manual) Nucleated RBC % Seg Neutrophils # Seg Neutrophils # Man Lymphocytes # (Manual) Monocytes # (Manual) Eosinophils # (Manual) Basophils # (Manual) PT INR Fibrinogen dRVVT Confirm Interp Factor V Activity POC ABG pH POC ABG pCO2 POC ABG pO2 ABG pO2 ABG HCO3 ABG Base Excess ABG Hemoglobin Oxyhemoglobin Sodium Potassium Chloride Carbon Dioxide BUN Creatinine Glucose POC Glucose 170 H 167 H 126 H Lactic Acid Calcium Phosphorus Magnesium Direct Bilirubin AST ALT Alkaline Phosphatase Lactate Dehydrogenase Troponin T C-Reactive Protein Total Protein Albumin Prealbumin Triglycerides Cholesterol LDL Cholesterol Direct HDL Cholesterol Urine pH Urine WBC (Auto) Urine Creatinine Urine Total Protein Fluid Total Protein Vancomycin Trough Rheumatoid Factor Complement C4 Miscellaneous Test Crossmatch 10/17/16 10/18/16 10/18/16 23:17 04:00 04:00 WBC 20.7 H RBC 2.47 L Hgb 7.4 L Hct 22.9 L MCV MCH MCHC RDW 17.5 H Plt Count Lymph % (Auto) [place] % (Auto) Lymph # [place] # Baso # Seg Neutrophils % Seg Neuts % (Manual) Lymphocytes % (Manual) Monocytes % (Manual) Eosinophils % (Manual) Basophils % (Manual) Nucleated RBC % Seg Neutrophils # Seg Neutrophils # Man Lymphocytes # (Manual) Monocytes # (Manual) Eosinophils # (Manual) Basophils # (Manual) PT INR Fibrinogen dRVVT Confirm Interp Factor V Activity POC ABG pH POC ABG pCO2 POC ABG pO2 ABG pO2 ABG HCO3 ABG Base Excess ABG Hemoglobin Oxyhemoglobin Sodium 149 H Potassium Chloride 107.9 H Carbon Dioxide 20 L BUN 117 H Creatinine 3.2 H Glucose 119 H POC Glucose 121 H Lactic Acid Calcium Phosphorus Magnesium Direct Bilirubin AST ALT Alkaline Phosphatase Lactate Dehydrogenase Troponin T C-Reactive Protein Total Protein Albumin Prealbumin Triglycerides Cholesterol LDL Cholesterol Direct HDL Cholesterol Urine pH Urine WBC (Auto) Urine Creatinine Urine Total Protein Fluid Total Protein Vancomycin Trough Rheumatoid Factor Complement C4 Miscellaneous Test Crossmatch 10/18/16 10/18/16 10/18/16 05:23 10:46 17:30 WBC RBC Hgb Hct MCV MCH MCHC RDW Plt Count Lymph % (Auto) [place] % (Auto) Lymph # [place] # Baso # Seg Neutrophils % Seg Neuts % (Manual) Lymphocytes % (Manual) Monocytes % (Manual) Eosinophils % (Manual) Basophils % (Manual) Nucleated RBC % Seg Neutrophils # Seg Neutrophils # Man Lymphocytes # (Manual) Monocytes # (Manual) Eosinophils # (Manual) Basophils # (Manual) PT INR Fibrinogen dRVVT Confirm Interp Factor V Activity POC ABG pH POC ABG pCO2 POC ABG pO2 ABG pO2 ABG HCO3 ABG Base Excess ABG Hemoglobin Oxyhemoglobin Sodium Potassium Chloride Carbon Dioxide BUN Creatinine Glucose POC Glucose 119 H 155 H 124 H Lactic Acid Calcium Phosphorus Magnesium Direct Bilirubin AST ALT Alkaline Phosphatase Lactate Dehydrogenase Troponin T C-Reactive Protein Total Protein Albumin Prealbumin Triglycerides Cholesterol LDL Cholesterol Direct HDL Cholesterol Urine pH Urine WBC (Auto) Urine Creatinine Urine Total Protein Fluid Total Protein Vancomycin Trough Rheumatoid Factor Complement C4 Miscellaneous Test Crossmatch 10/19/16 10/19/16 10/19/16 04:00 04:00 05:25 WBC 17.4 H RBC 2.54 L Hgb 7.7 L Hct 23.6 L MCV MCH MCHC RDW 17.3 H Plt Count Lymph % (Auto) [place] % (Auto) Lymph # [place] # Baso # Seg Neutrophils % Seg Neuts % (Manual) Lymphocytes % (Manual) Monocytes % (Manual) Eosinophils % (Manual) Basophils % (Manual) Nucleated RBC % Seg Neutrophils # Seg Neutrophils # Man Lymphocytes # (Manual) Monocytes # (Manual) Eosinophils # (Manual) Basophils # (Manual) PT INR Fibrinogen dRVVT Confirm Interp Factor V Activity POC ABG pH POC ABG pCO2 POC ABG pO2 ABG pO2 ABG HCO3 ABG Base Excess ABG Hemoglobin Oxyhemoglobin Sodium Potassium Chloride Carbon Dioxide BUN 72 H Creatinine 2.1 H Glucose 116 H POC Glucose 119 H Lactic Acid Calcium Phosphorus Magnesium Direct Bilirubin AST ALT Alkaline Phosphatase Lactate Dehydrogenase Troponin T C-Reactive Protein Total Protein Albumin Prealbumin Triglycerides Cholesterol LDL Cholesterol Direct HDL Cholesterol Urine pH Urine WBC (Auto) Urine Creatinine Urine Total Protein Fluid Total Protein Vancomycin Trough Rheumatoid Factor Complement C4 Miscellaneous Test Crossmatch 10/19/16 10/19/16 10/20/16 11:46 23:59 06:00 WBC RBC Hgb Hct MCV MCH MCHC RDW Plt Count Lymph % (Auto) [place] % (Auto) Lymph # [place] # Baso # Seg Neutrophils % Seg Neuts % (Manual) Lymphocytes % (Manual) Monocytes % (Manual) Eosinophils % (Manual) Basophils % (Manual) Nucleated RBC % Seg Neutrophils # Seg Neutrophils # Man Lymphocytes # (Manual) Monocytes # (Manual) Eosinophils # (Manual) Basophils # (Manual) PT INR Fibrinogen dRVVT Confirm Interp Factor V Activity POC ABG pH POC ABG pCO2 POC ABG pO2 ABG pO2 ABG HCO3 ABG Base Excess ABG Hemoglobin Oxyhemoglobin Sodium Potassium Chloride Carbon Dioxide 17 L BUN 94 H Creatinine 2.7 H Glucose POC Glucose 116 H 117 H Lactic Acid Calcium Phosphorus Magnesium Direct Bilirubin AST ALT Alkaline Phosphatase Lactate Dehydrogenase Troponin T C-Reactive Protein Total Protein Albumin Prealbumin Triglycerides Cholesterol LDL Cholesterol Direct HDL Cholesterol Urine pH Urine WBC (Auto) Urine Creatinine Urine Total Protein Fluid Total Protein Vancomycin Trough Rheumatoid Factor Complement C4 Miscellaneous Test Crossmatch 10/20/16 10/20/16 10/20/16 06:00 11:49 16:00 WBC 19.7 H RBC 2.51 L Hgb 7.7 L Hct 23.5 L MCV MCH MCHC RDW 17.5 H Plt Count Lymph % (Auto) [place] % (Auto) Lymph # [place] # Baso # Seg Neutrophils % Seg Neuts % (Manual) Lymphocytes % (Manual) Monocytes % (Manual) Eosinophils % (Manual) Basophils % (Manual) Nucleated RBC % Seg Neutrophils # Seg Neutrophils # Man Lymphocytes # (Manual) Monocytes # (Manual) Eosinophils # (Manual) Basophils # (Manual) PT INR Fibrinogen dRVVT Confirm Interp Factor V Activity POC ABG pH POC ABG pCO2 POC ABG pO2 ABG pO2 ABG HCO3 ABG Base Excess ABG Hemoglobin Oxyhemoglobin Sodium Potassium Chloride Carbon Dioxide BUN Creatinine Glucose POC Glucose 117 H Lactic Acid Calcium Phosphorus Magnesium Direct Bilirubin AST ALT Alkaline Phosphatase Lactate Dehydrogenase Troponin T C-Reactive Protein Total Protein Albumin Prealbumin Triglycerides Cholesterol LDL Cholesterol Direct HDL Cholesterol Urine pH Urine WBC (Auto) Urine Creatinine Urine Total Protein Fluid Total Protein Vancomycin Trough Rheumatoid Factor Complement C4 Miscellaneous Test Flexitest 1 H Crossmatch 10/20/16 10/20/16 10/21/16 18:36 23:39 04:00 WBC RBC Hgb Hct MCV MCH MCHC RDW Plt Count Lymph % (Auto) [place] % (Auto) Lymph # [place] # Baso # Seg Neutrophils % Seg Neuts % (Manual) Lymphocytes % (Manual) Monocytes % (Manual) Eosinophils % (Manual) Basophils % (Manual) Nucleated RBC % Seg Neutrophils # Seg Neutrophils # Man Lymphocytes # (Manual) Monocytes # (Manual) Eosinophils # (Manual) Basophils # (Manual) PT INR Fibrinogen dRVVT Confirm Interp Factor V Activity POC ABG pH POC ABG pCO2 POC ABG pO2 ABG pO2 ABG HCO3 ABG Base Excess ABG Hemoglobin Oxyhemoglobin Sodium Potassium 5.4 H D Chloride Carbon Dioxide 15 L BUN 110 H Creatinine 3.0 H Glucose POC Glucose 127 H 114 H Lactic Acid Calcium Phosphorus Magnesium Direct Bilirubin AST ALT Alkaline Phosphatase Lactate Dehydrogenase Troponin T C-Reactive Protein Total Protein Albumin Prealbumin Triglycerides Cholesterol LDL Cholesterol Direct HDL Cholesterol Urine pH Urine WBC (Auto) Urine Creatinine Urine Total Protein Fluid Total Protein Vancomycin Trough Rheumatoid Factor Complement C4 Miscellaneous Test Crossmatch 10/21/16 10/21/16 10/22/16 05:54 23:46 05:18 WBC RBC Hgb Hct MCV MCH MCHC RDW Plt Count Lymph % (Auto) [place] % (Auto) Lymph # [place] # Baso # Seg Neutrophils % Seg Neuts % (Manual) Lymphocytes % (Manual) Monocytes % (Manual) Eosinophils % (Manual) Basophils % (Manual) Nucleated RBC % Seg Neutrophils # Seg Neutrophils # Man Lymphocytes # (Manual) Monocytes # (Manual) Eosinophils # (Manual) Basophils # (Manual) PT INR Fibrinogen dRVVT Confirm Interp Factor V Activity POC ABG pH POC ABG pCO2 POC ABG pO2 ABG pO2 ABG HCO3 ABG Base Excess ABG Hemoglobin Oxyhemoglobin Sodium Potassium Chloride Carbon Dioxide BUN Creatinine Glucose POC Glucose 119 H 108 H 109 H Lactic Acid Calcium Phosphorus Magnesium Direct Bilirubin AST ALT Alkaline Phosphatase Lactate Dehydrogenase Troponin T C-Reactive Protein Total Protein Albumin Prealbumin Triglycerides Cholesterol LDL Cholesterol Direct HDL Cholesterol Urine pH Urine WBC (Auto) Urine Creatinine Urine Total Protein Fluid Total Protein Vancomycin Trough Rheumatoid Factor Complement C4 Miscellaneous Test Crossmatch 10/22/16 10/22/16 10/22/16 06:40 06:40 06:40 WBC 14.0 H RBC 2.03 L Hgb 7.0 L Hct 20.5 L MCV 98 H MCH 34 H MCHC 35 H RDW 17.8 H Plt Count Lymph % (Auto) [place] % (Auto) 9.9 H Lymph # [place] # 1.4 H Baso # 0.2 H Seg Neutrophils % 72.0 H Seg Neuts % (Manual) Lymphocytes % (Manual) Monocytes % (Manual) Eosinophils % (Manual) Basophils % (Manual) Nucleated RBC % Seg Neutrophils # 10.0 H Seg Neutrophils # Man Lymphocytes # (Manual) Monocytes # (Manual) Eosinophils # (Manual) Basophils # (Manual) PT INR Fibrinogen dRVVT Confirm Interp Factor V Activity POC ABG pH POC ABG pCO2 POC ABG pO2 ABG pO2 ABG HCO3 ABG Base Excess ABG Hemoglobin Oxyhemoglobin Sodium 130 L D Potassium Chloride 92.4 L Carbon Dioxide 20 L BUN 50 H Creatinine 1.6 H Glucose 589 H* POC Glucose Lactic Acid Calcium 7.8 L D Phosphorus Magnesium 1.60 L Direct Bilirubin AST ALT Alkaline Phosphatase Lactate Dehydrogenase Troponin T C-Reactive Protein Total Protein Albumin Prealbumin Triglycerides Cholesterol LDL Cholesterol Direct HDL Cholesterol Urine pH Urine WBC (Auto) Urine Creatinine Urine Total Protein Fluid Total Protein Vancomycin Trough Rheumatoid Factor Complement C4 Miscellaneous Test Crossmatch 10/22/16 10/22/16 10/22/16 11:39 16:44 23:36 WBC RBC Hgb Hct MCV MCH MCHC RDW Plt Count Lymph % (Auto) [place] % (Auto) Lymph # [place] # Baso # Seg Neutrophils % Seg Neuts % (Manual) Lymphocytes % (Manual) Monocytes % (Manual) Eosinophils % (Manual) Basophils % (Manual) Nucleated RBC % Seg Neutrophils # Seg Neutrophils # Man Lymphocytes # (Manual) Monocytes # (Manual) Eosinophils # (Manual) Basophils # (Manual) PT INR Fibrinogen dRVVT Confirm Interp Factor V Activity POC ABG pH POC ABG pCO2 POC ABG pO2 ABG pO2 ABG HCO3 ABG Base Excess ABG Hemoglobin Oxyhemoglobin Sodium Potassium Chloride Carbon Dioxide BUN Creatinine Glucose POC Glucose 142 H 163 H 123 H Lactic Acid Calcium Phosphorus Magnesium Direct Bilirubin AST ALT Alkaline Phosphatase Lactate Dehydrogenase Troponin T C-Reactive Protein Total Protein Albumin Prealbumin Triglycerides Cholesterol LDL Cholesterol Direct HDL Cholesterol Urine pH Urine WBC (Auto) Urine Creatinine Urine Total Protein Fluid Total Protein Vancomycin Trough Rheumatoid Factor Complement C4 Miscellaneous Test Crossmatch 10/23/16 10/23/16 10/23/16 04:58 06:00 12:12 WBC RBC Hgb Hct MCV MCH MCHC RDW Plt Count Lymph % (Auto) [place] % (Auto) Lymph # [place] # Baso # Seg Neutrophils % Seg Neuts % (Manual) Lymphocytes % (Manual) Monocytes % (Manual) Eosinophils % (Manual) Basophils % (Manual) Nucleated RBC % Seg Neutrophils # Seg Neutrophils # Man Lymphocytes # (Manual) Monocytes # (Manual) Eosinophils # (Manual) Basophils # (Manual) PT INR Fibrinogen dRVVT Confirm Interp Factor V Activity POC ABG pH POC ABG pCO2 POC ABG pO2 ABG pO2 ABG HCO3 ABG Base Excess ABG Hemoglobin Oxyhemoglobin Sodium 133 L Potassium 3.5 L Chloride 96.1 L Carbon Dioxide 18 L BUN 76 H Creatinine 2.1 H Glucose POC Glucose 133 H 138 H Lactic Acid Calcium 8.3 L Phosphorus Magnesium Direct Bilirubin AST ALT Alkaline Phosphatase Lactate Dehydrogenase Troponin T C-Reactive Protein Total Protein Albumin Prealbumin Triglycerides Cholesterol LDL Cholesterol Direct HDL Cholesterol Urine pH Urine WBC (Auto) Urine Creatinine Urine Total Protein Fluid Total Protein Vancomycin Trough Rheumatoid Factor Complement C4 Miscellaneous Test Crossmatch 10/23/16 10/23/16 10/24/16 16:53 23:37 04:00 WBC RBC Hgb Hct MCV MCH MCHC RDW Plt Count Lymph % (Auto) [place] % (Auto) Lymph # [place] # Baso # Seg Neutrophils % Seg Neuts % (Manual) Lymphocytes % (Manual) Monocytes % (Manual) Eosinophils % (Manual) Basophils % (Manual) Nucleated RBC % Seg Neutrophils # Seg Neutrophils # Man Lymphocytes # (Manual) Monocytes # (Manual) Eosinophils # (Manual) Basophils # (Manual) PT INR Fibrinogen dRVVT Confirm Interp Factor V Activity POC ABG pH POC ABG pCO2 POC ABG pO2 ABG pO2 ABG HCO3 ABG Base Excess ABG Hemoglobin Oxyhemoglobin Sodium 131 L Potassium Chloride 94.5 L Carbon Dioxide 19 L BUN 97 H Creatinine 2.6 H Glucose 110 H POC Glucose 125 H 123 H Lactic Acid Calcium 8.3 L Phosphorus Magnesium Direct Bilirubin AST ALT Alkaline Phosphatase Lactate Dehydrogenase Troponin T C-Reactive Protein Total Protein Albumin Prealbumin Triglycerides Cholesterol LDL Cholesterol Direct HDL Cholesterol Urine pH Urine WBC (Auto) Urine Creatinine Urine Total Protein Fluid Total Protein Vancomycin Trough Rheumatoid Factor Complement C4 Miscellaneous Test Crossmatch 10/24/16 10/24/16 10/24/16 07:49 11:39 17:52 WBC RBC Hgb 6.0 L Hct 19.7 L* MCV MCH MCHC RDW Plt Count Lymph % (Auto) [place] % (Auto) Lymph # [place] # Baso # Seg Neutrophils % Seg Neuts % (Manual) Lymphocytes % (Manual) Monocytes % (Manual) Eosinophils % (Manual) Basophils % (Manual) Nucleated RBC % Seg Neutrophils # Seg Neutrophils # Man Lymphocytes # (Manual) Monocytes # (Manual) Eosinophils # (Manual) Basophils # (Manual) PT INR Fibrinogen dRVVT Confirm Interp Factor V Activity POC ABG pH POC ABG pCO2 POC ABG pO2 ABG pO2 ABG HCO3 ABG Base Excess ABG Hemoglobin Oxyhemoglobin Sodium Potassium Chloride Carbon Dioxide BUN Creatinine Glucose POC Glucose 106 H 158 H Lactic Acid Calcium Phosphorus Magnesium Direct Bilirubin AST ALT Alkaline Phosphatase Lactate Dehydrogenase Troponin T C-Reactive Protein Total Protein Albumin Prealbumin Triglycerides Cholesterol LDL Cholesterol Direct HDL Cholesterol Urine pH Urine WBC (Auto) Urine Creatinine Urine Total Protein Fluid Total Protein Vancomycin Trough Rheumatoid Factor Complement C4 Miscellaneous Test Crossmatch 10/24/16 10/24/16 10/24/16 20:00 22:27 Unknown WBC RBC Hgb 9.4 L D Hct 27.5 L D MCV MCH MCHC RDW Plt Count Lymph % (Auto) [place] % (Auto) Lymph # [place] # Baso # Seg Neutrophils % Seg Neuts % (Manual) Lymphocytes % (Manual) Monocytes % (Manual) Eosinophils % (Manual) Basophils % (Manual) Nucleated RBC % Seg Neutrophils # Seg Neutrophils # Man Lymphocytes # (Manual) Monocytes # (Manual) Eosinophils # (Manual) Basophils # (Manual) PT INR Fibrinogen dRVVT Confirm Interp Factor V Activity POC ABG pH POC ABG pCO2 POC ABG pO2 ABG pO2 ABG HCO3 ABG Base Excess ABG Hemoglobin Oxyhemoglobin Sodium Potassium Chloride Carbon Dioxide BUN Creatinine Glucose POC Glucose 125 H Lactic Acid Calcium Phosphorus Magnesium Direct Bilirubin AST ALT Alkaline Phosphatase Lactate Dehydrogenase Troponin T C-Reactive Protein Total Protein Albumin Prealbumin Triglycerides Cholesterol LDL Cholesterol Direct HDL Cholesterol Urine pH Urine WBC (Auto) Urine Creatinine Urine Total Protein Fluid Total Protein Vancomycin Trough Rheumatoid Factor Complement C4 Miscellaneous Test Crossmatch See Detail 10/25/16 10/25/16 10/25/16 04:00 04:00 04:00 WBC 14.2 H RBC 2.98 L Hgb 9.0 L Hct 26.2 L MCV MCH MCHC RDW 16.6 H Plt Count Lymph % (Auto) [place] % (Auto) 10.7 H Lymph # [place] # 1.5 H Baso # Seg Neutrophils % 73.6 H Seg Neuts % (Manual) Lymphocytes % (Manual) Monocytes % (Manual) Eosinophils % (Manual) Basophils % (Manual) Nucleated RBC % Seg Neutrophils # 10.5 H Seg Neutrophils # Man Lymphocytes # (Manual) Monocytes # (Manual) Eosinophils # (Manual) Basophils # (Manual) PT INR Fibrinogen dRVVT Confirm Interp Factor V Activity POC ABG pH POC ABG pCO2 POC ABG pO2 ABG pO2 ABG HCO3 ABG Base Excess ABG Hemoglobin Oxyhemoglobin Sodium 132 L Potassium Chloride 94.7 L Carbon Dioxide BUN 51 H Creatinine 1.6 H Glucose 130 H POC Glucose Lactic Acid Calcium 8.3 L Phosphorus 1.60 L D Magnesium Direct Bilirubin AST ALT Alkaline Phosphatase Lactate Dehydrogenase Troponin T C-Reactive Protein Total Protein Albumin Prealbumin Triglycerides Cholesterol LDL Cholesterol Direct HDL Cholesterol Urine pH Urine WBC (Auto) Urine Creatinine Urine Total Protein Fluid Total Protein Vancomycin Trough Rheumatoid Factor Complement C4 Miscellaneous Test Crossmatch 10/25/16 10/25/16 10/25/16 04:32 11:48 17:22 WBC RBC Hgb Hct MCV MCH MCHC RDW Plt Count Lymph % (Auto) [place] % (Auto) Lymph # [place] # Baso # Seg Neutrophils % Seg Neuts % (Manual) Lymphocytes % (Manual) Monocytes % (Manual) Eosinophils % (Manual) Basophils % (Manual) Nucleated RBC % Seg Neutrophils # Seg Neutrophils # Man Lymphocytes # (Manual) Monocytes # (Manual) Eosinophils # (Manual) Basophils # (Manual) PT INR Fibrinogen dRVVT Confirm Interp Factor V Activity POC ABG pH POC ABG pCO2 POC ABG pO2 ABG pO2 ABG HCO3 ABG Base Excess ABG Hemoglobin Oxyhemoglobin Sodium Potassium Chloride Carbon Dioxide BUN Creatinine Glucose POC Glucose 124 H 171 H 120 H Lactic Acid Calcium Phosphorus Magnesium Direct Bilirubin AST ALT Alkaline Phosphatase Lactate Dehydrogenase Troponin T C-Reactive Protein Total Protein Albumin Prealbumin Triglycerides Cholesterol LDL Cholesterol Direct HDL Cholesterol Urine pH Urine WBC (Auto) Urine Creatinine Urine Total Protein Fluid Total Protein Vancomycin Trough Rheumatoid Factor Complement C4 Miscellaneous Test Crossmatch 10/26/16 10/26/16 10/26/16 04:54 07:06 07:06 WBC 16.9 H RBC 3.06 L Hgb 9.1 L Hct 26.9 L MCV MCH MCHC RDW 16.9 H Plt Count Lymph % (Auto) [place] % (Auto) Lymph # [place] # Baso # Seg Neutrophils % Seg Neuts % (Manual) 71.0 H Lymphocytes % (Manual) 5.0 L Monocytes % (Manual) 12.0 H Eosinophils % (Manual) Basophils % (Manual) Nucleated RBC % Seg Neutrophils # Seg Neutrophils # Man 12.0 H Lymphocytes # (Manual) 0.8 L Monocytes # (Manual) 2.0 H Eosinophils # (Manual) Basophils # (Manual) PT INR Fibrinogen dRVVT Confirm Interp Factor V Activity POC ABG pH POC ABG pCO2 POC ABG pO2 ABG pO2 ABG HCO3 ABG Base Excess ABG Hemoglobin Oxyhemoglobin Sodium 135 L Potassium Chloride 97.1 L Carbon Dioxide BUN 73 H Creatinine 2.2 H Glucose 117 H POC Glucose 123 H Lactic Acid Calcium Phosphorus 1.70 L Magnesium Direct Bilirubin AST ALT Alkaline Phosphatase Lactate Dehydrogenase Troponin T C-Reactive Protein Total Protein Albumin Prealbumin Triglycerides Cholesterol LDL Cholesterol Direct HDL Cholesterol Urine pH Urine WBC (Auto) Urine Creatinine Urine Total Protein Fluid Total Protein Vancomycin Trough Rheumatoid Factor Complement C4 Miscellaneous Test Crossmatch 10/26/16 10/26/16 10/26/16 12:12 17:29 23:42 WBC RBC Hgb Hct MCV MCH MCHC RDW Plt Count Lymph % (Auto) [place] % (Auto) Lymph # [place] # Baso # Seg Neutrophils % Seg Neuts % (Manual) Lymphocytes % (Manual) Monocytes % (Manual) Eosinophils % (Manual) Basophils % (Manual) Nucleated RBC % Seg Neutrophils # Seg Neutrophils # Man Lymphocytes # (Manual) Monocytes # (Manual) Eosinophils # (Manual) Basophils # (Manual) PT INR Fibrinogen dRVVT Confirm Interp Factor V Activity POC ABG pH POC ABG pCO2 POC ABG pO2 ABG pO2 ABG HCO3 ABG Base Excess ABG Hemoglobin Oxyhemoglobin Sodium Potassium Chloride Carbon Dioxide BUN Creatinine Glucose POC Glucose 126 H 161 H 118 H Lactic Acid Calcium Phosphorus Magnesium Direct Bilirubin AST ALT Alkaline Phosphatase Lactate Dehydrogenase Troponin T C-Reactive Protein Total Protein Albumin Prealbumin Triglycerides Cholesterol LDL Cholesterol Direct HDL Cholesterol Urine pH Urine WBC (Auto) Urine Creatinine Urine Total Protein Fluid Total Protein Vancomycin Trough Rheumatoid Factor Complement C4 Miscellaneous Test Crossmatch 10/27/16 10/27/16 10/27/16 05:03 06:30 06:30 WBC 13.9 H RBC 3.09 L Hgb 9.2 L Hct 27.5 L MCV MCH MCHC RDW 17.0 H Plt Count Lymph % (Auto) [place] % (Auto) Lymph # [place] # Baso # Seg Neutrophils % Seg Neuts % (Manual) 78.0 H Lymphocytes % (Manual) Monocytes % (Manual) Eosinophils % (Manual) Basophils % (Manual) Nucleated RBC % 2.0 H Seg Neutrophils # Seg Neutrophils # Man 10.8 H Lymphocytes # (Manual) Monocytes # (Manual) 1.0 H Eosinophils # (Manual) Basophils # (Manual) PT INR Fibrinogen dRVVT Confirm Interp Factor V Activity POC ABG pH POC ABG pCO2 POC ABG pO2 ABG pO2 ABG HCO3 ABG Base Excess ABG Hemoglobin Oxyhemoglobin Sodium Potassium Chloride Carbon Dioxide BUN 40 H Creatinine 1.5 H Glucose 135 H POC Glucose 107 H Lactic Acid Calcium 8.3 L Phosphorus 1.30 L D Magnesium Direct Bilirubin AST ALT Alkaline Phosphatase Lactate Dehydrogenase Troponin T C-Reactive Protein Total Protein Albumin Prealbumin Triglycerides Cholesterol LDL Cholesterol Direct HDL Cholesterol Urine pH Urine WBC (Auto) Urine Creatinine Urine Total Protein Fluid Total Protein Vancomycin Trough Rheumatoid Factor Complement C4 Miscellaneous Test Crossmatch 10/27/16 10/27/16 10/27/16 13:27 18:07 23:40 WBC RBC Hgb Hct MCV MCH MCHC RDW Plt Count Lymph % (Auto) [place] % (Auto) Lymph # [place] # Baso # Seg Neutrophils % Seg Neuts % (Manual) Lymphocytes % (Manual) Monocytes % (Manual) Eosinophils % (Manual) Basophils % (Manual) Nucleated RBC % Seg Neutrophils # Seg Neutrophils # Man Lymphocytes # (Manual) Monocytes # (Manual) Eosinophils # (Manual) Basophils # (Manual) PT INR Fibrinogen dRVVT Confirm Interp Factor V Activity POC ABG pH POC ABG pCO2 POC ABG pO2 ABG pO2 ABG HCO3 ABG Base Excess ABG Hemoglobin Oxyhemoglobin Sodium Potassium Chloride Carbon Dioxide BUN Creatinine Glucose POC Glucose 117 H 121 H 118 H Lactic Acid Calcium Phosphorus Magnesium Direct Bilirubin AST ALT Alkaline Phosphatase Lactate Dehydrogenase Troponin T C-Reactive Protein Total Protein Albumin Prealbumin Triglycerides Cholesterol LDL Cholesterol Direct HDL Cholesterol Urine pH Urine WBC (Auto) Urine Creatinine Urine Total Protein Fluid Total Protein Vancomycin Trough Rheumatoid Factor Complement C4 Miscellaneous Test Crossmatch 10/28/16 10/28/16 10/28/16 05:48 06:45 06:45 WBC 14.7 H RBC 3.05 L Hgb 9.0 L Hct 26.9 L MCV MCH MCHC RDW 16.8 H Plt Count Lymph % (Auto) 8.2 L [place] % (Auto) 8.4 H Lymph # [place] # 1.2 H Baso # Seg Neutrophils % 81.9 H Seg Neuts % (Manual) Lymphocytes % (Manual) Monocytes % (Manual) Eosinophils % (Manual) Basophils % (Manual) Nucleated RBC % Seg Neutrophils # 12.1 H Seg Neutrophils # Man Lymphocytes # (Manual) Monocytes # (Manual) Eosinophils # (Manual) Basophils # (Manual) PT INR Fibrinogen dRVVT Confirm Interp Factor V Activity POC ABG pH POC ABG pCO2 POC ABG pO2 ABG pO2 ABG HCO3 ABG Base Excess ABG Hemoglobin Oxyhemoglobin Sodium Potassium Chloride Carbon Dioxide BUN 60 H Creatinine 1.9 H Glucose 120 H POC Glucose 114 H Lactic Acid Calcium Phosphorus Magnesium Direct Bilirubin AST ALT Alkaline Phosphatase Lactate Dehydrogenase Troponin T C-Reactive Protein Total Protein Albumin Prealbumin Triglycerides Cholesterol LDL Cholesterol Direct HDL Cholesterol Urine pH Urine WBC (Auto) Urine Creatinine Urine Total Protein Fluid Total Protein Vancomycin Trough Rheumatoid Factor Complement C4 Miscellaneous Test Crossmatch 10/28/16 10/28/16 10/29/16 17:08 23:50 05:10 WBC RBC Hgb Hct MCV MCH MCHC RDW Plt Count Lymph % (Auto) [place] % (Auto) Lymph # [place] # Baso # Seg Neutrophils % Seg Neuts % (Manual) Lymphocytes % (Manual) Monocytes % (Manual) Eosinophils % (Manual) Basophils % (Manual) Nucleated RBC % Seg Neutrophils # Seg Neutrophils # Man Lymphocytes # (Manual) Monocytes # (Manual) Eosinophils # (Manual) Basophils # (Manual) PT INR Fibrinogen dRVVT Confirm Interp Factor V Activity POC ABG pH POC ABG pCO2 POC ABG pO2 ABG pO2 ABG HCO3 ABG Base Excess ABG Hemoglobin Oxyhemoglobin Sodium Potassium Chloride Carbon Dioxide BUN Creatinine Glucose POC Glucose 109 H 110 H 124 H Lactic Acid Calcium Phosphorus Magnesium Direct Bilirubin AST ALT Alkaline Phosphatase Lactate Dehydrogenase Troponin T C-Reactive Protein Total Protein Albumin Prealbumin Triglycerides Cholesterol LDL Cholesterol Direct HDL Cholesterol Urine pH Urine WBC (Auto) Urine Creatinine Urine Total Protein Fluid Total Protein Vancomycin Trough Rheumatoid Factor Complement C4 Miscellaneous Test Crossmatch 10/29/16 10/29/16 10/29/16 07:45 07:45 12:19 WBC 14.7 H RBC 3.15 L Hgb 9.3 L Hct 28.9 L MCV MCH MCHC RDW 17.0 H Plt Count Lymph % (Auto) 11.9 L [place] % (Auto) 8.6 H Lymph # [place] # 1.3 H Baso # Seg Neutrophils % 78.1 H Seg Neuts % (Manual) Lymphocytes % (Manual) Monocytes % (Manual) Eosinophils % (Manual) Basophils % (Manual) Nucleated RBC % Seg Neutrophils # 11.4 H Seg Neutrophils # Man Lymphocytes # (Manual) Monocytes # (Manual) Eosinophils # (Manual) Basophils # (Manual) PT INR Fibrinogen dRVVT Confirm Interp Factor V Activity POC ABG pH POC ABG pCO2 POC ABG pO2 ABG pO2 ABG HCO3 ABG Base Excess ABG Hemoglobin Oxyhemoglobin Sodium Potassium 5.1 H Chloride Carbon Dioxide 19 L BUN 78 H Creatinine 2.2 H Glucose 116 H POC Glucose 118 H Lactic Acid Calcium Phosphorus Magnesium Direct Bilirubin AST ALT Alkaline Phosphatase Lactate Dehydrogenase Troponin T C-Reactive Protein Total Protein Albumin Prealbumin Triglycerides Cholesterol LDL Cholesterol Direct HDL Cholesterol Urine pH Urine WBC (Auto) Urine Creatinine Urine Total Protein Fluid Total Protein Vancomycin Trough Rheumatoid Factor Complement C4 Miscellaneous Test Crossmatch 10/29/16 10/30/16 10/30/16 17:49 01:52 03:28 WBC RBC Hgb Hct MCV MCH MCHC RDW Plt Count Lymph % (Auto) [place] % (Auto) Lymph # [place] # Baso # Seg Neutrophils % Seg Neuts % (Manual) Lymphocytes % (Manual) Monocytes % (Manual) Eosinophils % (Manual) Basophils % (Manual) Nucleated RBC % Seg Neutrophils # Seg Neutrophils # Man Lymphocytes # (Manual) Monocytes # (Manual) Eosinophils # (Manual) Basophils # (Manual) PT INR Fibrinogen dRVVT Confirm Interp Factor V Activity POC ABG pH POC ABG pCO2 POC ABG pO2 ABG pO2 ABG HCO3 ABG Base Excess ABG Hemoglobin Oxyhemoglobin Sodium Potassium 5.4 H Chloride 97.5 L Carbon Dioxide 19 L BUN 90 H Creatinine 2.5 H Glucose POC Glucose 120 H 129 H Lactic Acid Calcium Phosphorus 5.20 H Magnesium Direct Bilirubin AST ALT Alkaline Phosphatase Lactate Dehydrogenase Troponin T C-Reactive Protein Total Protein Albumin Prealbumin Triglycerides Cholesterol LDL Cholesterol Direct HDL Cholesterol Urine pH Urine WBC (Auto) Urine Creatinine Urine Total Protein Fluid Total Protein Vancomycin Trough Rheumatoid Factor Complement C4 Miscellaneous Test Crossmatch 10/30/16 10/30/16 10/30/16 03:28 08:19 08:19 WBC 11.6 H 15.9 H RBC 2.75 L 2.82 L Hgb 7.9 L 8.3 L Hct 24.2 L 25.2 L MCV MCH MCHC RDW 16.7 H 17.2 H Plt Count Lymph % (Auto) [place] % (Auto) 9.8 H Lymph # [place] # 1.1 H Baso # Seg Neutrophils % 74.2 H Seg Neuts % (Manual) Lymphocytes % (Manual) Monocytes % (Manual) Eosinophils % (Manual) Basophils % (Manual) Nucleated RBC % Seg Neutrophils # 8.6 H Seg Neutrophils # Man Lymphocytes # (Manual) Monocytes # (Manual) Eosinophils # (Manual) Basophils # (Manual) PT INR Fibrinogen dRVVT Confirm Interp Factor V Activity POC ABG pH POC ABG pCO2 POC ABG pO2 ABG pO2 ABG HCO3 ABG Base Excess ABG Hemoglobin Oxyhemoglobin Sodium Potassium 5.3 H Chloride 97.4 L Carbon Dioxide 19 L BUN 93 H Creatinine 2.6 H Glucose POC Glucose Lactic Acid Calcium Phosphorus Magnesium Direct Bilirubin AST ALT Alkaline Phosphatase Lactate Dehydrogenase Troponin T C-Reactive Protein Total Protein Albumin Prealbumin Triglycerides Cholesterol LDL Cholesterol Direct HDL Cholesterol Urine pH Urine WBC (Auto) Urine Creatinine Urine Total Protein Fluid Total Protein Vancomycin Trough Rheumatoid Factor Complement C4 Miscellaneous Test Crossmatch 10/30/16 10/30/16 10/31/16 17:11 23:56 00:40 WBC RBC Hgb Hct MCV MCH MCHC RDW Plt Count Lymph % (Auto) [place] % (Auto) Lymph # [place] # Baso # Seg Neutrophils % Seg Neuts % (Manual) Lymphocytes % (Manual) Monocytes % (Manual) Eosinophils % (Manual) Basophils % (Manual) Nucleated RBC % Seg Neutrophils # Seg Neutrophils # Man Lymphocytes # (Manual) Monocytes # (Manual) Eosinophils # (Manual) Basophils # (Manual) PT INR Fibrinogen dRVVT Confirm Interp Factor V Activity POC ABG pH POC ABG pCO2 POC ABG pO2 ABG pO2 ABG HCO3 ABG Base Excess ABG Hemoglobin Oxyhemoglobin Sodium Potassium Chloride Carbon Dioxide BUN Creatinine Glucose POC Glucose 106 H 117 H 120 H Lactic Acid Calcium Phosphorus Magnesium Direct Bilirubin AST ALT Alkaline Phosphatase Lactate Dehydrogenase Troponin T C-Reactive Protein Total Protein Albumin Prealbumin Triglycerides Cholesterol LDL Cholesterol Direct HDL Cholesterol Urine pH Urine WBC (Auto) Urine Creatinine Urine Total Protein Fluid Total Protein Vancomycin Trough Rheumatoid Factor Complement C4 Miscellaneous Test Crossmatch 10/31/16 10/31/16 10/31/16 05:43 07:15 07:15 WBC 12.1 H RBC 2.63 L Hgb 7.7 L Hct 23.3 L MCV MCH MCHC RDW 16.7 H Plt Count Lymph % (Auto) 11.7 L [place] % (Auto) 7.7 H Lymph # [place] # 0.9 H Baso # Seg Neutrophils % 78.0 H Seg Neuts % (Manual) Lymphocytes % (Manual) Monocytes % (Manual) Eosinophils % (Manual) Basophils % (Manual) Nucleated RBC % Seg Neutrophils # 9.4 H Seg Neutrophils # Man Lymphocytes # (Manual) Monocytes # (Manual) Eosinophils # (Manual) Basophils # (Manual) PT INR Fibrinogen dRVVT Confirm Interp Factor V Activity POC ABG pH POC ABG pCO2 POC ABG pO2 ABG pO2 ABG HCO3 ABG Base Excess ABG Hemoglobin Oxyhemoglobin Sodium Potassium Chloride 96.4 L Carbon Dioxide 21 L BUN 99 H Creatinine 2.6 H Glucose 144 H POC Glucose 125 H Lactic Acid Calcium Phosphorus 4.80 H Magnesium Direct Bilirubin AST ALT Alkaline Phosphatase Lactate Dehydrogenase Troponin T C-Reactive Protein Total Protein Albumin Prealbumin Triglycerides Cholesterol LDL Cholesterol Direct HDL Cholesterol Urine pH Urine WBC (Auto) Urine Creatinine Urine Total Protein Fluid Total Protein Vancomycin Trough Rheumatoid Factor Complement C4 Miscellaneous Test Crossmatch 10/31/16 10/31/16 11/01/16 11:46 18:34 00:20 WBC RBC Hgb Hct MCV MCH MCHC RDW Plt Count Lymph % (Auto) [place] % (Auto) Lymph # [place] # Baso # Seg Neutrophils % Seg Neuts % (Manual) Lymphocytes % (Manual) Monocytes % (Manual) Eosinophils % (Manual) Basophils % (Manual) Nucleated RBC % Seg Neutrophils # Seg Neutrophils # Man Lymphocytes # (Manual) Monocytes # (Manual) Eosinophils # (Manual) Basophils # (Manual) PT INR Fibrinogen dRVVT Confirm Interp Factor V Activity POC ABG pH POC ABG pCO2 POC ABG pO2 ABG pO2 ABG HCO3 ABG Base Excess ABG Hemoglobin Oxyhemoglobin Sodium Potassium Chloride Carbon Dioxide BUN Creatinine Glucose POC Glucose 159 H 140 H 132 H Lactic Acid Calcium Phosphorus Magnesium Direct Bilirubin AST ALT Alkaline Phosphatase Lactate Dehydrogenase Troponin T C-Reactive Protein Total Protein Albumin Prealbumin Triglycerides Cholesterol LDL Cholesterol Direct HDL Cholesterol Urine pH Urine WBC (Auto) Urine Creatinine Urine Total Protein Fluid Total Protein Vancomycin Trough Rheumatoid Factor Complement C4 Miscellaneous Test Crossmatch 11/01/16 11/01/16 11/01/16 04:55 04:55 06:11 WBC 11.2 H RBC 2.68 L Hgb 7.5 L Hct 23.7 L MCV MCH MCHC RDW 16.1 H Plt Count Lymph % (Auto) [place] % (Auto) 9.8 H Lymph # [place] # 1.1 H Baso # Seg Neutrophils % 70.8 H Seg Neuts % (Manual) Lymphocytes % (Manual) Monocytes % (Manual) Eosinophils % (Manual) Basophils % (Manual) Nucleated RBC % Seg Neutrophils # 7.9 H Seg Neutrophils # Man Lymphocytes # (Manual) Monocytes # (Manual) Eosinophils # (Manual) Basophils # (Manual) PT INR Fibrinogen dRVVT Confirm Interp Factor V Activity POC ABG pH POC ABG pCO2 POC ABG pO2 ABG pO2 ABG HCO3 ABG Base Excess ABG Hemoglobin Oxyhemoglobin Sodium Potassium 3.3 L D Chloride Carbon Dioxide BUN 61 H Creatinine 1.9 H Glucose 114 H POC Glucose 115 H Lactic Acid Calcium Phosphorus 1.80 L D Magnesium Direct Bilirubin AST ALT Alkaline Phosphatase Lactate Dehydrogenase Troponin T C-Reactive Protein Total Protein Albumin Prealbumin Triglycerides Cholesterol LDL Cholesterol Direct HDL Cholesterol Urine pH Urine WBC (Auto) Urine Creatinine Urine Total Protein Fluid Total Protein Vancomycin Trough Rheumatoid Factor Complement C4 Miscellaneous Test Crossmatch 11/01/16 11/01/16 11/01/16 12:29 18:23 23:58 WBC RBC Hgb Hct MCV MCH MCHC RDW Plt Count Lymph % (Auto) [place] % (Auto) Lymph # [place] # Baso # Seg Neutrophils % Seg Neuts % (Manual) Lymphocytes % (Manual) Monocytes % (Manual) Eosinophils % (Manual) Basophils % (Manual) Nucleated RBC % Seg Neutrophils # Seg Neutrophils # Man Lymphocytes # (Manual) Monocytes # (Manual) Eosinophils # (Manual) Basophils # (Manual) PT INR Fibrinogen dRVVT Confirm Interp Factor V Activity POC ABG pH POC ABG pCO2 POC ABG pO2 ABG pO2 ABG HCO3 ABG Base Excess ABG Hemoglobin Oxyhemoglobin Sodium Potassium Chloride Carbon Dioxide BUN Creatinine Glucose POC Glucose 142 H 143 H 128 H Lactic Acid Calcium Phosphorus Magnesium Direct Bilirubin AST ALT Alkaline Phosphatase Lactate Dehydrogenase Troponin T C-Reactive Protein Total Protein Albumin Prealbumin Triglycerides Cholesterol LDL Cholesterol Direct HDL Cholesterol Urine pH Urine WBC (Auto) Urine Creatinine Urine Total Protein Fluid Total Protein Vancomycin Trough Rheumatoid Factor Complement C4 Miscellaneous Test Crossmatch 11/02/16 11/02/16 11/02/16 04:16 05:29 11:58 WBC RBC Hgb Hct MCV MCH MCHC RDW Plt Count Lymph % (Auto) [place] % (Auto) Lymph # [place] # Baso # Seg Neutrophils % Seg Neuts % (Manual) Lymphocytes % (Manual) Monocytes % (Manual) Eosinophils % (Manual) Basophils % (Manual) Nucleated RBC % Seg Neutrophils # Seg Neutrophils # Man Lymphocytes # (Manual) Monocytes # (Manual) Eosinophils # (Manual) Basophils # (Manual) PT INR Fibrinogen dRVVT Confirm Interp Factor V Activity POC ABG pH POC ABG pCO2 POC ABG pO2 ABG pO2 ABG HCO3 ABG Base Excess ABG Hemoglobin Oxyhemoglobin Sodium Potassium 3.1 L Chloride Carbon Dioxide BUN 73 H Creatinine 2.3 H Glucose 112 H POC Glucose 135 H 149 H Lactic Acid Calcium Phosphorus Magnesium Direct Bilirubin AST ALT Alkaline Phosphatase Lactate Dehydrogenase Troponin T C-Reactive Protein Total Protein Albumin Prealbumin Triglycerides Cholesterol LDL Cholesterol Direct HDL Cholesterol Urine pH Urine WBC (Auto) Urine Creatinine Urine Total Protein Fluid Total Protein Vancomycin Trough Rheumatoid Factor Complement C4 Miscellaneous Test Crossmatch 11/02/16 11/02/16 11/03/16 17:42 22:54 06:00 WBC RBC Hgb Hct MCV MCH MCHC RDW Plt Count Lymph % (Auto) [place] % (Auto) Lymph # [place] # Baso # Seg Neutrophils % Seg Neuts % (Manual) Lymphocytes % (Manual) Monocytes % (Manual) Eosinophils % (Manual) Basophils % (Manual) Nucleated RBC % Seg Neutrophils # Seg Neutrophils # Man Lymphocytes # (Manual) Monocytes # (Manual) Eosinophils # (Manual) Basophils # (Manual) PT INR Fibrinogen dRVVT Confirm Interp Factor V Activity POC ABG pH POC ABG pCO2 POC ABG pO2 ABG pO2 ABG HCO3 ABG Base Excess ABG Hemoglobin Oxyhemoglobin Sodium Potassium Chloride 96.7 L Carbon Dioxide BUN 41 H Creatinine 1.5 H Glucose 145 H POC Glucose 182 H 115 H Lactic Acid Calcium Phosphorus 1.60 L D Magnesium 1.50 L Direct Bilirubin AST ALT Alkaline Phosphatase Lactate Dehydrogenase Troponin T C-Reactive Protein Total Protein Albumin Prealbumin Triglycerides Cholesterol LDL Cholesterol Direct HDL Cholesterol Urine pH Urine WBC (Auto) Urine Creatinine Urine Total Protein Fluid Total Protein Vancomycin Trough Rheumatoid Factor Complement C4 Miscellaneous Test Crossmatch 11/03/16 11/03/16 11/03/16 11:53 17:45 23:37 WBC RBC Hgb Hct MCV MCH MCHC RDW Plt Count Lymph % (Auto) [place] % (Auto) Lymph # [place] # Baso # Seg Neutrophils % Seg Neuts % (Manual) Lymphocytes % (Manual) Monocytes % (Manual) Eosinophils % (Manual) Basophils % (Manual) Nucleated RBC % Seg Neutrophils # Seg Neutrophils # Man Lymphocytes # (Manual) Monocytes # (Manual) Eosinophils # (Manual) Basophils # (Manual) PT INR Fibrinogen dRVVT Confirm Interp Factor V Activity POC ABG pH POC ABG pCO2 POC ABG pO2 ABG pO2 ABG HCO3 ABG Base Excess ABG Hemoglobin Oxyhemoglobin Sodium Potassium Chloride Carbon Dioxide BUN Creatinine Glucose POC Glucose 131 H 134 H 113 H Lactic Acid Calcium Phosphorus Magnesium Direct Bilirubin AST ALT Alkaline Phosphatase Lactate Dehydrogenase Troponin T C-Reactive Protein Total Protein Albumin Prealbumin Triglycerides Cholesterol LDL Cholesterol Direct HDL Cholesterol Urine pH Urine WBC (Auto) Urine Creatinine Urine Total Protein Fluid Total Protein Vancomycin Trough Rheumatoid Factor Complement C4 Miscellaneous Test Crossmatch 11/04/16 11/04/16 11/04/16 05:41 06:00 12:10 WBC RBC Hgb Hct MCV MCH MCHC RDW Plt Count Lymph % (Auto) [place] % (Auto) Lymph # [place] # Baso # Seg Neutrophils % Seg Neuts % (Manual) Lymphocytes % (Manual) Monocytes % (Manual) Eosinophils % (Manual) Basophils % (Manual) Nucleated RBC % Seg Neutrophils # Seg Neutrophils # Man Lymphocytes # (Manual) Monocytes # (Manual) Eosinophils # (Manual) Basophils # (Manual) PT INR Fibrinogen dRVVT Confirm Interp Factor V Activity POC ABG pH POC ABG pCO2 POC ABG pO2 ABG pO2 ABG HCO3 ABG Base Excess ABG Hemoglobin Oxyhemoglobin Sodium Potassium Chloride 96.7 L Carbon Dioxide BUN 52 H Creatinine 1.9 H Glucose 126 H POC Glucose 137 H 191 H Lactic Acid Calcium Phosphorus Magnesium Direct Bilirubin AST ALT Alkaline Phosphatase Lactate Dehydrogenase Troponin T C-Reactive Protein Total Protein Albumin Prealbumin Triglycerides Cholesterol LDL Cholesterol Direct HDL Cholesterol Urine pH Urine WBC (Auto) Urine Creatinine Urine Total Protein Fluid Total Protein Vancomycin Trough Rheumatoid Factor Complement C4 Miscellaneous Test Crossmatch 11/04/16 11/05/16 11/05/16 22:57 03:10 05:10 WBC RBC Hgb Hct MCV MCH MCHC RDW Plt Count Lymph % (Auto) [place] % (Auto) Lymph # [place] # Baso # Seg Neutrophils % Seg Neuts % (Manual) Lymphocytes % (Manual) Monocytes % (Manual) Eosinophils % (Manual) Basophils % (Manual) Nucleated RBC % Seg Neutrophils # Seg Neutrophils # Man Lymphocytes # (Manual) Monocytes # (Manual) Eosinophils # (Manual) Basophils # (Manual) PT INR Fibrinogen dRVVT Confirm Interp Factor V Activity POC ABG pH POC ABG pCO2 POC ABG pO2 ABG pO2 ABG HCO3 ABG Base Excess ABG Hemoglobin Oxyhemoglobin Sodium 136 L Potassium Chloride 97.2 L Carbon Dioxide BUN 32 H Creatinine 1.3 H Glucose 123 H POC Glucose 125 H 108 H Lactic Acid Calcium 7.8 L Phosphorus Magnesium Direct Bilirubin AST ALT Alkaline Phosphatase Lactate Dehydrogenase Troponin T C-Reactive Protein Total Protein Albumin Prealbumin Triglycerides Cholesterol LDL Cholesterol Direct HDL Cholesterol Urine pH Urine WBC (Auto) Urine Creatinine Urine Total Protein Fluid Total Protein Vancomycin Trough Rheumatoid Factor Complement C4 Miscellaneous Test Crossmatch 11/05/16 11/05/16 11/05/16 12:23 13:09 13:25 WBC RBC Hgb Hct MCV MCH MCHC RDW Plt Count Lymph % (Auto) [place] % (Auto) Lymph # [place] # Baso # Seg Neutrophils % Seg Neuts % (Manual) Lymphocytes % (Manual) Monocytes % (Manual) Eosinophils % (Manual) Basophils % (Manual) Nucleated RBC % Seg Neutrophils # Seg Neutrophils # Man Lymphocytes # (Manual) Monocytes # (Manual) Eosinophils # (Manual) Basophils # (Manual) PT INR Fibrinogen dRVVT Confirm Interp Factor V Activity POC ABG pH POC ABG pCO2 POC ABG pO2 ABG pO2 ABG HCO3 ABG Base Excess ABG Hemoglobin Oxyhemoglobin Sodium Potassium Chloride Carbon Dioxide BUN Creatinine Glucose POC Glucose 124 H Lactic Acid Calcium Phosphorus Magnesium Direct Bilirubin AST ALT Alkaline Phosphatase Lactate Dehydrogenase Troponin T C-Reactive Protein 11.40 H Total Protein Albumin Prealbumin Triglycerides Cholesterol LDL Cholesterol Direct HDL Cholesterol Urine pH 9.0 H Urine WBC (Auto) Urine Creatinine Urine Total Protein Fluid Total Protein Vancomycin Trough Rheumatoid Factor Complement C4 Miscellaneous Test Crossmatch 11/05/16 11/05/16 11/05/16 13:25 17:54 23:42 WBC RBC Hgb Hct MCV MCH MCHC RDW Plt Count Lymph % (Auto) [place] % (Auto) Lymph # [place] # Baso # Seg Neutrophils % Seg Neuts % (Manual) Lymphocytes % (Manual) Monocytes % (Manual) Eosinophils % (Manual) Basophils % (Manual) Nucleated RBC % Seg Neutrophils # Seg Neutrophils # Man Lymphocytes # (Manual) Monocytes # (Manual) Eosinophils # (Manual) Basophils # (Manual) PT INR Fibrinogen dRVVT Confirm Interp Factor V Activity POC ABG pH POC ABG pCO2 POC ABG pO2 ABG pO2 ABG HCO3 ABG Base Excess ABG Hemoglobin Oxyhemoglobin Sodium Potassium Chloride Carbon Dioxide BUN Creatinine Glucose POC Glucose 114 H 134 H Lactic Acid Calcium Phosphorus Magnesium Direct Bilirubin AST ALT Alkaline Phosphatase Lactate Dehydrogenase Troponin T C-Reactive Protein Total Protein Albumin Prealbumin Triglycerides Cholesterol LDL Cholesterol Direct HDL Cholesterol Urine pH Urine WBC (Auto) Urine Creatinine Urine Total Protein Fluid Total Protein Vancomycin Trough Rheumatoid Factor Complement C4 Miscellaneous Test Flexitest 1 H Crossmatch 11/06/16 11/06/16 11/06/16 04:56 06:25 06:25 WBC RBC 2.50 L Hgb 7.3 L Hct 22.5 L MCV MCH MCHC RDW 16.9 H Plt Count Lymph % (Auto) [place] % (Auto) 10.5 H Lymph # [place] # 1.1 H Baso # Seg Neutrophils % Seg Neuts % (Manual) Lymphocytes % (Manual) Monocytes % (Manual) Eosinophils % (Manual) Basophils % (Manual) Nucleated RBC % Seg Neutrophils # Seg Neutrophils # Man Lymphocytes # (Manual) Monocytes # (Manual) Eosinophils # (Manual) Basophils # (Manual) PT INR Fibrinogen dRVVT Confirm Interp Factor V Activity POC ABG pH POC ABG pCO2 POC ABG pO2 ABG pO2 ABG HCO3 ABG Base Excess ABG Hemoglobin Oxyhemoglobin Sodium Potassium 5.1 H Chloride 95.9 L Carbon Dioxide BUN 52 H Creatinine 1.8 H Glucose 117 H POC Glucose 120 H Lactic Acid Calcium Phosphorus Magnesium Direct Bilirubin AST 103 H ALT 77 H Alkaline Phosphatase 285 H Lactate Dehydrogenase Troponin T C-Reactive Protein Total Protein 6.2 L Albumin 1.8 L Prealbumin 0.180 L Triglycerides Cholesterol LDL Cholesterol Direct HDL Cholesterol Urine pH Urine WBC (Auto) Urine Creatinine Urine Total Protein Fluid Total Protein Vancomycin Trough Rheumatoid Factor Complement C4 Miscellaneous Test Crossmatch 11/06/16 11/06/16 11/06/16 11:56 17:14 23:52 WBC RBC Hgb Hct MCV MCH MCHC RDW Plt Count Lymph % (Auto) [place] % (Auto) Lymph # [place] # Baso # Seg Neutrophils % Seg Neuts % (Manual) Lymphocytes % (Manual) Monocytes % (Manual) Eosinophils % (Manual) Basophils % (Manual) Nucleated RBC % Seg Neutrophils # Seg Neutrophils # Man Lymphocytes # (Manual) Monocytes # (Manual) Eosinophils # (Manual) Basophils # (Manual) PT INR Fibrinogen dRVVT Confirm Interp Factor V Activity POC ABG pH POC ABG pCO2 POC ABG pO2 ABG pO2 ABG HCO3 ABG Base Excess ABG Hemoglobin Oxyhemoglobin Sodium Potassium Chloride Carbon Dioxide BUN Creatinine Glucose POC Glucose 141 H 125 H 130 H Lactic Acid Calcium Phosphorus Magnesium Direct Bilirubin AST ALT Alkaline Phosphatase Lactate Dehydrogenase Troponin T C-Reactive Protein Total Protein Albumin Prealbumin Triglycerides Cholesterol LDL Cholesterol Direct HDL Cholesterol Urine pH Urine WBC (Auto) Urine Creatinine Urine Total Protein Fluid Total Protein Vancomycin Trough Rheumatoid Factor Complement C4 Miscellaneous Test Crossmatch 11/07/16 11/07/16 11/07/16 06:30 06:30 09:37 WBC RBC 2.18 L Hgb 6.3 L Hct 19.7 L* MCV MCH MCHC RDW 16.8 H Plt Count Lymph % (Auto) [place] % (Auto) 10.0 H Lymph # [place] # 1.0 H Baso # Seg Neutrophils % Seg Neuts % (Manual) Lymphocytes % (Manual) Monocytes % (Manual) Eosinophils % (Manual) Basophils % (Manual) Nucleated RBC % Seg Neutrophils # Seg Neutrophils # Man Lymphocytes # (Manual) Monocytes # (Manual) Eosinophils # (Manual) Basophils # (Manual) PT INR Fibrinogen dRVVT Confirm Interp Factor V Activity POC ABG pH POC ABG pCO2 POC ABG pO2 ABG pO2 ABG HCO3 ABG Base Excess ABG Hemoglobin Oxyhemoglobin Sodium 135 L Potassium Chloride 95.6 L Carbon Dioxide BUN 70 H Creatinine 2.0 H Glucose 126 H POC Glucose Lactic Acid Calcium Phosphorus Magnesium Direct Bilirubin AST ALT Alkaline Phosphatase Lactate Dehydrogenase Troponin T C-Reactive Protein Total Protein Albumin Prealbumin Triglycerides Cholesterol LDL Cholesterol Direct HDL Cholesterol Urine pH Urine WBC (Auto) Urine Creatinine Urine Total Protein Fluid Total Protein Vancomycin Trough Rheumatoid Factor Complement C4 Miscellaneous Test Crossmatch See Detail 11/07/16 11/07/16 11/07/16 12:52 18:51 21:26 WBC RBC Hgb Hct MCV MCH MCHC RDW Plt Count Lymph % (Auto) [place] % (Auto) Lymph # [place] # Baso # Seg Neutrophils % Seg Neuts % (Manual) Lymphocytes % (Manual) Monocytes % (Manual) Eosinophils % (Manual) Basophils % (Manual) Nucleated RBC % Seg Neutrophils # Seg Neutrophils # Man Lymphocytes # (Manual) Monocytes # (Manual) Eosinophils # (Manual) Basophils # (Manual) PT INR Fibrinogen dRVVT Confirm Interp Factor V Activity POC ABG pH 7.523 H POC ABG pCO2 34.6 L POC ABG pO2 53 L ABG pO2 ABG HCO3 ABG Base Excess ABG Hemoglobin Oxyhemoglobin Sodium Potassium Chloride Carbon Dioxide BUN Creatinine Glucose POC Glucose 142 H 155 H Lactic Acid Calcium Phosphorus Magnesium Direct Bilirubin AST ALT Alkaline Phosphatase Lactate Dehydrogenase Troponin T C-Reactive Protein Total Protein Albumin Prealbumin Triglycerides Cholesterol LDL Cholesterol Direct HDL Cholesterol Urine pH Urine WBC (Auto) Urine Creatinine Urine Total Protein Fluid Total Protein Vancomycin Trough Rheumatoid Factor Complement C4 Miscellaneous Test Crossmatch 11/07/16 11/08/16 11/08/16 21:34 13:03 23:37 WBC RBC 2.63 L Hgb 7.7 L Hct 22.7 L MCV MCH MCHC RDW 17.0 H Plt Count Lymph % (Auto) [place] % (Auto) Lymph # [place] # Baso # Seg Neutrophils % Seg Neuts % (Manual) Lymphocytes % (Manual) Monocytes % (Manual) Eosinophils % (Manual) Basophils % (Manual) Nucleated RBC % Seg Neutrophils # Seg Neutrophils # Man Lymphocytes # (Manual) Monocytes # (Manual) Eosinophils # (Manual) Basophils # (Manual) PT INR Fibrinogen dRVVT Confirm Interp Factor V Activity POC ABG pH 7.478 H POC ABG pCO2 34.0 L POC ABG pO2 50 L ABG pO2 ABG HCO3 ABG Base Excess ABG Hemoglobin Oxyhemoglobin Sodium Potassium Chloride Carbon Dioxide BUN Creatinine Glucose POC Glucose 113 H Lactic Acid Calcium Phosphorus Magnesium Direct Bilirubin AST ALT Alkaline Phosphatase Lactate Dehydrogenase Troponin T C-Reactive Protein Total Protein Albumin Prealbumin Triglycerides Cholesterol LDL Cholesterol Direct HDL Cholesterol Urine pH Urine WBC (Auto) Urine Creatinine Urine Total Protein Fluid Total Protein Vancomycin Trough Rheumatoid Factor Complement C4 Miscellaneous Test Crossmatch 11/09/16 11/09/16 11/09/16 04:35 10:15 18:21 WBC RBC 2.68 L Hgb 7.8 L Hct 23.3 L MCV MCH MCHC RDW 17.0 H Plt Count Lymph % (Auto) [place] % (Auto) 12.1 H Lymph # [place] # 1.1 H Baso # Seg Neutrophils % Seg Neuts % (Manual) Lymphocytes % (Manual) Monocytes % (Manual) Eosinophils % (Manual) Basophils % (Manual) Nucleated RBC % Seg Neutrophils # Seg Neutrophils # Man Lymphocytes # (Manual) Monocytes # (Manual) Eosinophils # (Manual) Basophils # (Manual) PT INR Fibrinogen dRVVT Confirm Interp Factor V Activity POC ABG pH POC ABG pCO2 POC ABG pO2 ABG pO2 ABG HCO3 ABG Base Excess ABG Hemoglobin Oxyhemoglobin Sodium Potassium Chloride Carbon Dioxide BUN 51 H Creatinine 1.8 H Glucose POC Glucose 60 L Lactic Acid Calcium 8.3 L Phosphorus Magnesium Direct Bilirubin AST ALT Alkaline Phosphatase Lactate Dehydrogenase Troponin T C-Reactive Protein Total Protein Albumin Prealbumin Triglycerides Cholesterol LDL Cholesterol Direct HDL Cholesterol Urine pH Urine WBC (Auto) Urine Creatinine Urine Total Protein Fluid Total Protein Vancomycin Trough Rheumatoid Factor Complement C4 Miscellaneous Test Crossmatch 11/09/16 11/10/16 11/10/16 18:55 07:00 11:51 WBC RBC Hgb Hct MCV MCH MCHC RDW Plt Count Lymph % (Auto) [place] % (Auto) Lymph # [place] # Baso # Seg Neutrophils % Seg Neuts % (Manual) Lymphocytes % (Manual) Monocytes % (Manual) Eosinophils % (Manual) Basophils % (Manual) Nucleated RBC % Seg Neutrophils # Seg Neutrophils # Man Lymphocytes # (Manual) Monocytes # (Manual) Eosinophils # (Manual) Basophils # (Manual) PT INR Fibrinogen dRVVT Confirm Interp Factor V Activity POC ABG pH POC ABG pCO2 POC ABG pO2 ABG pO2 ABG HCO3 ABG Base Excess ABG Hemoglobin Oxyhemoglobin Sodium Potassium 3.0 L D Chloride 97.4 L Carbon Dioxide BUN 28 H Creatinine 1.3 H Glucose POC Glucose 68 L 120 H Lactic Acid Calcium 7.8 L Phosphorus Magnesium Direct Bilirubin AST ALT Alkaline Phosphatase Lactate Dehydrogenase Troponin T C-Reactive Protein Total Protein Albumin Prealbumin Triglycerides Cholesterol LDL Cholesterol Direct HDL Cholesterol Urine pH Urine WBC (Auto) Urine Creatinine Urine Total Protein Fluid Total Protein Vancomycin Trough Rheumatoid Factor Complement C4 Miscellaneous Test Crossmatch 11/10/16 11/11/16 11/11/16 14:20 06:59 06:59 WBC RBC 2.81 L Hgb 8.1 L Hct 24.4 L MCV MCH MCHC RDW 16.4 H Plt Count Lymph % (Auto) [place] % (Auto) 10.8 H Lymph # [place] # 1.0 H Baso # Seg Neutrophils % Seg Neuts % (Manual) Lymphocytes % (Manual) Monocytes % (Manual) Eosinophils % (Manual) Basophils % (Manual) Nucleated RBC % Seg Neutrophils # Seg Neutrophils # Man Lymphocytes # (Manual) Monocytes # (Manual) Eosinophils # (Manual) Basophils # (Manual) PT INR Fibrinogen dRVVT Confirm Interp Factor V Activity POC ABG pH POC ABG pCO2 POC ABG pO2 ABG pO2 ABG HCO3 ABG Base Excess ABG Hemoglobin Oxyhemoglobin Sodium Potassium Chloride Carbon Dioxide BUN Creatinine Glucose POC Glucose Lactic Acid Calcium Phosphorus Magnesium Direct Bilirubin AST ALT Alkaline Phosphatase Lactate Dehydrogenase 196 H Troponin T C-Reactive Protein Total Protein 6.1 L Albumin Prealbumin Triglycerides Cholesterol LDL Cholesterol Direct HDL Cholesterol Urine pH Urine WBC (Auto) Urine Creatinine Urine Total Protein Fluid Total Protein < 3.0 L Vancomycin Trough Rheumatoid Factor Complement C4 Miscellaneous Test Crossmatch 11/11/16 11/11/16 11/12/16 06:59 09:50 04:00 WBC RBC Hgb Hct MCV MCH MCHC RDW Plt Count Lymph % (Auto) [place] % (Auto) Lymph # [place] # Baso # Seg Neutrophils % Seg Neuts % (Manual) Lymphocytes % (Manual) Monocytes % (Manual) Eosinophils % (Manual) Basophils % (Manual) Nucleated RBC % Seg Neutrophils # Seg Neutrophils # Man Lymphocytes # (Manual) Monocytes # (Manual) Eosinophils # (Manual) Basophils # (Manual) PT INR 1.18 H Fibrinogen dRVVT Confirm Interp Factor V Activity POC ABG pH POC ABG pCO2 POC ABG pO2 ABG pO2 ABG HCO3 ABG Base Excess ABG Hemoglobin Oxyhemoglobin Sodium 136 L 133 L Potassium Chloride 96.1 L 94.8 L Carbon Dioxide 21 L BUN 37 H 42 H Creatinine 1.8 H 2.0 H Glucose POC Glucose Lactic Acid Calcium Phosphorus Magnesium Direct Bilirubin AST ALT Alkaline Phosphatase Lactate Dehydrogenase Troponin T C-Reactive Protein Total Protein Albumin Prealbumin Triglycerides Cholesterol LDL Cholesterol Direct HDL Cholesterol Urine pH Urine WBC (Auto) Urine Creatinine Urine Total Protein Fluid Total Protein Vancomycin Trough Rheumatoid Factor Complement C4 Miscellaneous Test Crossmatch 11/12/16 11/12/16 11/13/16 04:00 23:55 05:53 WBC RBC Hgb 8.9 L Hct 27.2 L MCV MCH MCHC RDW Plt Count Lymph % (Auto) [place] % (Auto) Lymph # [place] # Baso # Seg Neutrophils % Seg Neuts % (Manual) Lymphocytes % (Manual) Monocytes % (Manual) Eosinophils % (Manual) Basophils % (Manual) Nucleated RBC % Seg Neutrophils # Seg Neutrophils # Man Lymphocytes # (Manual) Monocytes # (Manual) Eosinophils # (Manual) Basophils # (Manual) PT INR Fibrinogen dRVVT Confirm Interp Factor V Activity POC ABG pH POC ABG pCO2 POC ABG pO2 ABG pO2 ABG HCO3 ABG Base Excess ABG Hemoglobin Oxyhemoglobin Sodium Potassium Chloride Carbon Dioxide BUN Creatinine Glucose POC Glucose 132 H 120 H Lactic Acid Calcium Phosphorus Magnesium Direct Bilirubin AST ALT Alkaline Phosphatase Lactate Dehydrogenase Troponin T C-Reactive Protein Total Protein Albumin Prealbumin Triglycerides Cholesterol LDL Cholesterol Direct HDL Cholesterol Urine pH Urine WBC (Auto) Urine Creatinine Urine Total Protein Fluid Total Protein Vancomycin Trough Rheumatoid Factor Complement C4 Miscellaneous Test Crossmatch 11/13/16 11/13/16 11/13/16 11:43 17:09 23:41 WBC RBC Hgb Hct MCV MCH MCHC RDW Plt Count Lymph % (Auto) [place] % (Auto) Lymph # [place] # Baso # Seg Neutrophils % Seg Neuts % (Manual) Lymphocytes % (Manual) Monocytes % (Manual) Eosinophils % (Manual) Basophils % (Manual) Nucleated RBC % Seg Neutrophils # Seg Neutrophils # Man Lymphocytes # (Manual) Monocytes # (Manual) Eosinophils # (Manual) Basophils # (Manual) PT INR Fibrinogen dRVVT Confirm Interp Factor V Activity POC ABG pH POC ABG pCO2 POC ABG pO2 ABG pO2 ABG HCO3 ABG Base Excess ABG Hemoglobin Oxyhemoglobin Sodium Potassium Chloride Carbon Dioxide BUN Creatinine Glucose POC Glucose 114 H 113 H 108 H Lactic Acid Calcium Phosphorus Magnesium Direct Bilirubin AST ALT Alkaline Phosphatase Lactate Dehydrogenase Troponin T C-Reactive Protein Total Protein Albumin Prealbumin Triglycerides Cholesterol LDL Cholesterol Direct HDL Cholesterol Urine pH Urine WBC (Auto) Urine Creatinine Urine Total Protein Fluid Total Protein Vancomycin Trough Rheumatoid Factor Complement C4 Miscellaneous Test Crossmatch 11/13/16 11/15/16 11/15/16 Unknown 00:37 03:30 WBC 11.2 H RBC 2.72 L Hgb 7.6 L Hct 23.4 L MCV MCH MCHC RDW 16.5 H Plt Count Lymph % (Auto) [place] % (Auto) Lymph # [place] # Baso # Seg Neutrophils % Seg Neuts % (Manual) Lymphocytes % (Manual) Monocytes % (Manual) Eosinophils % (Manual) Basophils % (Manual) Nucleated RBC % Seg Neutrophils # Seg Neutrophils # Man Lymphocytes # (Manual) Monocytes # (Manual) Eosinophils # (Manual) Basophils # (Manual) PT INR Fibrinogen dRVVT Confirm Interp Factor V Activity POC ABG pH POC ABG pCO2 POC ABG pO2 ABG pO2 ABG HCO3 ABG Base Excess ABG Hemoglobin Oxyhemoglobin Sodium 135 L Potassium Chloride 95.2 L Carbon Dioxide BUN 52 H Creatinine 2.2 H Glucose POC Glucose 108 H Lactic Acid Calcium Phosphorus Magnesium Direct Bilirubin AST ALT Alkaline Phosphatase Lactate Dehydrogenase Troponin T C-Reactive Protein Total Protein Albumin Prealbumin Triglycerides Cholesterol LDL Cholesterol Direct HDL Cholesterol Urine pH Urine WBC (Auto) Urine Creatinine Urine Total Protein Fluid Total Protein Vancomycin Trough Rheumatoid Factor Complement C4 Miscellaneous Test Crossmatch 11/15/16 11/15/16 11/15/16 03:30 05:04 11:50 WBC RBC Hgb Hct MCV MCH MCHC RDW Plt Count Lymph % (Auto) [place] % (Auto) Lymph # [place] # Baso # Seg Neutrophils % Seg Neuts % (Manual) Lymphocytes % (Manual) Monocytes % (Manual) Eosinophils % (Manual) Basophils % (Manual) Nucleated RBC % Seg Neutrophils # Seg Neutrophils # Man Lymphocytes # (Manual) Monocytes # (Manual) Eosinophils # (Manual) Basophils # (Manual) PT INR Fibrinogen dRVVT Confirm Interp Factor V Activity POC ABG pH POC ABG pCO2 POC ABG pO2 ABG pO2 ABG HCO3 ABG Base Excess ABG Hemoglobin Oxyhemoglobin Sodium Potassium 3.4 L Chloride Carbon Dioxide BUN 25 H Creatinine 1.5 H Glucose 103 H POC Glucose 121 H 144 H Lactic Acid Calcium Phosphorus Magnesium Direct Bilirubin AST ALT Alkaline Phosphatase Lactate Dehydrogenase Troponin T C-Reactive Protein Total Protein Albumin Prealbumin Triglycerides Cholesterol LDL Cholesterol Direct HDL Cholesterol Urine pH Urine WBC (Auto) Urine Creatinine Urine Total Protein Fluid Total Protein Vancomycin Trough Rheumatoid Factor Complement C4 Miscellaneous Test Crossmatch 11/15/16 11/15/16 11/16/16 21:28 23:20 11:44 WBC RBC Hgb Hct MCV MCH MCHC RDW Plt Count Lymph % (Auto) [place] % (Auto) Lymph # [place] # Baso # Seg Neutrophils % Seg Neuts % (Manual) Lymphocytes % (Manual) Monocytes % (Manual) Eosinophils % (Manual) Basophils % (Manual) Nucleated RBC % Seg Neutrophils # Seg Neutrophils # Man Lymphocytes # (Manual) Monocytes # (Manual) Eosinophils # (Manual) Basophils # (Manual) PT INR Fibrinogen dRVVT Confirm Interp Factor V Activity POC ABG pH 7.462 H POC ABG pCO2 POC ABG pO2 71 L ABG pO2 ABG HCO3 ABG Base Excess ABG Hemoglobin Oxyhemoglobin Sodium Potassium Chloride Carbon Dioxide BUN Creatinine Glucose POC Glucose 116 H 133 H Lactic Acid Calcium Phosphorus Magnesium Direct Bilirubin AST ALT Alkaline Phosphatase Lactate Dehydrogenase Troponin T C-Reactive Protein Total Protein Albumin Prealbumin Triglycerides Cholesterol LDL Cholesterol Direct HDL Cholesterol Urine pH Urine WBC (Auto) Urine Creatinine Urine Total Protein Fluid Total Protein Vancomycin Trough Rheumatoid Factor Complement C4 Miscellaneous Test Crossmatch 11/16/16 11/16/16 11/16/16 12:20 17:05 23:35 WBC 11.7 H RBC 2.73 L Hgb 7.6 L Hct 23.7 L MCV MCH MCHC RDW 16.6 H Plt Count Lymph % (Auto) [place] % (Auto) Lymph # [place] # Baso # Seg Neutrophils % Seg Neuts % (Manual) Lymphocytes % (Manual) Monocytes % (Manual) Eosinophils % (Manual) Basophils % (Manual) Nucleated RBC % Seg Neutrophils # Seg Neutrophils # Man Lymphocytes # (Manual) Monocytes # (Manual) Eosinophils # (Manual) Basophils # (Manual) PT INR Fibrinogen dRVVT Confirm Interp Factor V Activity POC ABG pH POC ABG pCO2 POC ABG pO2 ABG pO2 ABG HCO3 ABG Base Excess ABG Hemoglobin Oxyhemoglobin Sodium Potassium Chloride Carbon Dioxide BUN Creatinine Glucose POC Glucose 154 H 125 H Lactic Acid Calcium Phosphorus Magnesium Direct Bilirubin AST ALT Alkaline Phosphatase Lactate Dehydrogenase Troponin T C-Reactive Protein Total Protein Albumin Prealbumin Triglycerides Cholesterol LDL Cholesterol Direct HDL Cholesterol Urine pH Urine WBC (Auto) Urine Creatinine Urine Total Protein Fluid Total Protein Vancomycin Trough Rheumatoid Factor Complement C4 Miscellaneous Test Crossmatch 11/17/16 11/17/16 11/17/16 03:20 03:20 03:20 WBC RBC 2.55 L Hgb 7.3 L Hct 21.9 L MCV MCH MCHC RDW 16.6 H Plt Count Lymph % (Auto) [place] % (Auto) 11.5 H Lymph # [place] # 1.1 H Baso # Seg Neutrophils % Seg Neuts % (Manual) Lymphocytes % (Manual) Monocytes % (Manual) Eosinophils % (Manual) Basophils % (Manual) Nucleated RBC % Seg Neutrophils # Seg Neutrophils # Man Lymphocytes # (Manual) Monocytes # (Manual) Eosinophils # (Manual) Basophils # (Manual) PT 16.8 H INR 1.37 H Fibrinogen dRVVT Confirm Interp Factor V Activity POC ABG pH POC ABG pCO2 POC ABG pO2 ABG pO2 ABG HCO3 ABG Base Excess ABG Hemoglobin Oxyhemoglobin Sodium Potassium 3.5 L Chloride Carbon Dioxide BUN 21 H Creatinine Glucose POC Glucose Lactic Acid Calcium 7.9 L Phosphorus Magnesium Direct Bilirubin AST ALT Alkaline Phosphatase Lactate Dehydrogenase Troponin T C-Reactive Protein Total Protein Albumin Prealbumin Triglycerides Cholesterol LDL Cholesterol Direct HDL Cholesterol Urine pH Urine WBC (Auto) Urine Creatinine Urine Total Protein Fluid Total Protein Vancomycin Trough Rheumatoid Factor Complement C4 Miscellaneous Test Crossmatch 11/17/16 11/17/16 11/17/16 06:34 11:21 21:22 WBC RBC Hgb Hct MCV MCH MCHC RDW Plt Count Lymph % (Auto) [place] % (Auto) Lymph # [place] # Baso # Seg Neutrophils % Seg Neuts % (Manual) Lymphocytes % (Manual) Monocytes % (Manual) Eosinophils % (Manual) Basophils % (Manual) Nucleated RBC % Seg Neutrophils # Seg Neutrophils # Man Lymphocytes # (Manual) Monocytes # (Manual) Eosinophils # (Manual) Basophils # (Manual) PT INR Fibrinogen dRVVT Confirm Interp Factor V Activity POC ABG pH 7.467 H POC ABG pCO2 POC ABG pO2 73 L ABG pO2 ABG HCO3 ABG Base Excess ABG Hemoglobin Oxyhemoglobin Sodium Potassium Chloride Carbon Dioxide BUN Creatinine Glucose POC Glucose 121 H 119 H Lactic Acid Calcium Phosphorus Magnesium Direct Bilirubin AST ALT Alkaline Phosphatase Lactate Dehydrogenase Troponin T C-Reactive Protein Total Protein Albumin Prealbumin Triglycerides Cholesterol LDL Cholesterol Direct HDL Cholesterol Urine pH Urine WBC (Auto) Urine Creatinine Urine Total Protein Fluid Total Protein Vancomycin Trough Rheumatoid Factor Complement C4 Miscellaneous Test Crossmatch 11/18/16 11/18/16 11/19/16 12:16 17:19 00:00 WBC RBC Hgb Hct MCV MCH MCHC RDW Plt Count Lymph % (Auto) [place] % (Auto) Lymph # [place] # Baso # Seg Neutrophils % Seg Neuts % (Manual) Lymphocytes % (Manual) Monocytes % (Manual) Eosinophils % (Manual) Basophils % (Manual) Nucleated RBC % Seg Neutrophils # Seg Neutrophils # Man Lymphocytes # (Manual) Monocytes # (Manual) Eosinophils # (Manual) Basophils # (Manual) PT INR Fibrinogen dRVVT Confirm Interp Factor V Activity POC ABG pH POC ABG pCO2 POC ABG pO2 ABG pO2 ABG HCO3 ABG Base Excess ABG Hemoglobin Oxyhemoglobin Sodium Potassium Chloride Carbon Dioxide BUN Creatinine Glucose POC Glucose 124 H 162 H 139 H Lactic Acid Calcium Phosphorus Magnesium Direct Bilirubin AST ALT Alkaline Phosphatase Lactate Dehydrogenase Troponin T C-Reactive Protein Total Protein Albumin Prealbumin Triglycerides Cholesterol LDL Cholesterol Direct HDL Cholesterol Urine pH Urine WBC (Auto) Urine Creatinine Urine Total Protein Fluid Total Protein Vancomycin Trough Rheumatoid Factor Complement C4 Miscellaneous Test Crossmatch 11/19/16 11/19/16 11/20/16 05:00 12:43 00:40 WBC RBC Hgb Hct MCV MCH MCHC RDW Plt Count Lymph % (Auto) [place] % (Auto) Lymph # [place] # Baso # Seg Neutrophils % Seg Neuts % (Manual) Lymphocytes % (Manual) Monocytes % (Manual) Eosinophils % (Manual) Basophils % (Manual) Nucleated RBC % Seg Neutrophils # Seg Neutrophils # Man Lymphocytes # (Manual) Monocytes # (Manual) Eosinophils # (Manual) Basophils # (Manual) PT INR Fibrinogen dRVVT Confirm Interp Factor V Activity POC ABG pH POC ABG pCO2 POC ABG pO2 ABG pO2 ABG HCO3 ABG Base Excess ABG Hemoglobin Oxyhemoglobin Sodium Potassium Chloride Carbon Dioxide BUN Creatinine Glucose POC Glucose 110 H 125 H 136 H Lactic Acid Calcium Phosphorus Magnesium Direct Bilirubin AST ALT Alkaline Phosphatase Lactate Dehydrogenase Troponin T C-Reactive Protein Total Protein Albumin Prealbumin Triglycerides Cholesterol LDL Cholesterol Direct HDL Cholesterol Urine pH Urine WBC (Auto) Urine Creatinine Urine Total Protein Fluid Total Protein Vancomycin Trough Rheumatoid Factor Complement C4 Miscellaneous Test Crossmatch 11/20/16 11/20/16 11/20/16 05:00 05:00 05:51 WBC 13.1 H RBC 2.74 L Hgb 7.7 L Hct 23.6 L MCV MCH MCHC RDW 16.9 H Plt Count Lymph % (Auto) [place] % (Auto) 10.8 H Lymph # [place] # 1.4 H Baso # Seg Neutrophils % Seg Neuts % (Manual) Lymphocytes % (Manual) Monocytes % (Manual) Eosinophils % (Manual) Basophils % (Manual) Nucleated RBC % Seg Neutrophils # 7.9 H Seg Neutrophils # Man Lymphocytes # (Manual) Monocytes # (Manual) Eosinophils # (Manual) Basophils # (Manual) PT INR Fibrinogen dRVVT Confirm Interp Factor V Activity POC ABG pH POC ABG pCO2 POC ABG pO2 ABG pO2 ABG HCO3 ABG Base Excess ABG Hemoglobin Oxyhemoglobin Sodium Potassium Chloride Carbon Dioxide BUN 31 H Creatinine 1.8 H Glucose 129 H POC Glucose 133 H Lactic Acid Calcium Phosphorus Magnesium Direct Bilirubin AST ALT Alkaline Phosphatase Lactate Dehydrogenase Troponin T C-Reactive Protein Total Protein Albumin Prealbumin Triglycerides Cholesterol LDL Cholesterol Direct HDL Cholesterol Urine pH Urine WBC (Auto) Urine Creatinine Urine Total Protein Fluid Total Protein Vancomycin Trough Rheumatoid Factor Complement C4 Miscellaneous Test Crossmatch 11/20/16 11/20/16 11/21/16 12:40 18:10 01:20 WBC RBC Hgb Hct MCV MCH MCHC RDW Plt Count Lymph % (Auto) [place] % (Auto) Lymph # [place] # Baso # Seg Neutrophils % Seg Neuts % (Manual) Lymphocytes % (Manual) Monocytes % (Manual) Eosinophils % (Manual) Basophils % (Manual) Nucleated RBC % Seg Neutrophils # Seg Neutrophils # Man Lymphocytes # (Manual) Monocytes # (Manual) Eosinophils # (Manual) Basophils # (Manual) PT INR Fibrinogen dRVVT Confirm Interp Factor V Activity POC ABG pH POC ABG pCO2 POC ABG pO2 ABG pO2 ABG HCO3 ABG Base Excess ABG Hemoglobin Oxyhemoglobin Sodium Potassium Chloride Carbon Dioxide BUN Creatinine Glucose POC Glucose 134 H 138 H 136 H Lactic Acid Calcium Phosphorus Magnesium Direct Bilirubin AST ALT Alkaline Phosphatase Lactate Dehydrogenase Troponin T C-Reactive Protein Total Protein Albumin Prealbumin Triglycerides Cholesterol LDL Cholesterol Direct HDL Cholesterol Urine pH Urine WBC (Auto) Urine Creatinine Urine Total Protein Fluid Total Protein Vancomycin Trough Rheumatoid Factor Complement C4 Miscellaneous Test Crossmatch 11/21/16 11/21/16 11/21/16 07:04 07:45 07:45 WBC 22.0 H RBC 2.91 L Hgb 8.2 L Hct 25.4 L MCV MCH MCHC RDW 17.1 H Plt Count Lymph % (Auto) [place] % (Auto) Lymph # [place] # Baso # Seg Neutrophils % Seg Neuts % (Manual) Lymphocytes % (Manual) 8.0 L Monocytes % (Manual) Eosinophils % (Manual) Basophils % (Manual) Nucleated RBC % Seg Neutrophils # Seg Neutrophils # Man 14.7 H Lymphocytes # (Manual) Monocytes # (Manual) 1.1 H Eosinophils # (Manual) Basophils # (Manual) PT INR Fibrinogen dRVVT Confirm Interp Factor V Activity POC ABG pH POC ABG pCO2 POC ABG pO2 ABG pO2 ABG HCO3 ABG Base Excess ABG Hemoglobin Oxyhemoglobin Sodium Potassium Chloride Carbon Dioxide BUN 42 H Creatinine 2.0 H Glucose POC Glucose 108 H Lactic Acid Calcium Phosphorus Magnesium Direct Bilirubin AST ALT Alkaline Phosphatase Lactate Dehydrogenase Troponin T C-Reactive Protein Total Protein Albumin Prealbumin Triglycerides Cholesterol LDL Cholesterol Direct HDL Cholesterol Urine pH Urine WBC (Auto) Urine Creatinine Urine Total Protein Fluid Total Protein Vancomycin Trough Rheumatoid Factor Complement C4 Miscellaneous Test Crossmatch 11/21/16 11/21/16 11/21/16 08:38 10:09 11:20 WBC RBC Hgb Hct MCV MCH MCHC RDW Plt Count Lymph % (Auto) [place] % (Auto) Lymph # [place] # Baso # Seg Neutrophils % Seg Neuts % (Manual) Lymphocytes % (Manual) Monocytes % (Manual) Eosinophils % (Manual) Basophils % (Manual) Nucleated RBC % Seg Neutrophils # Seg Neutrophils # Man Lymphocytes # (Manual) Monocytes # (Manual) Eosinophils # (Manual) Basophils # (Manual) PT INR Fibrinogen dRVVT Confirm Interp Factor V Activity POC ABG pH 7.346 L POC ABG pCO2 34.4 L POC ABG pO2 314 H ABG pO2 ABG HCO3 ABG Base Excess ABG Hemoglobin Oxyhemoglobin Sodium Potassium Chloride Carbon Dioxide BUN Creatinine Glucose POC Glucose 195 H 153 H Lactic Acid Calcium Phosphorus Magnesium Direct Bilirubin AST ALT Alkaline Phosphatase Lactate Dehydrogenase Troponin T C-Reactive Protein Total Protein Albumin Prealbumin Triglycerides Cholesterol LDL Cholesterol Direct HDL Cholesterol Urine pH Urine WBC (Auto) Urine Creatinine Urine Total Protein Fluid Total Protein Vancomycin Trough Rheumatoid Factor Complement C4 Miscellaneous Test Crossmatch 11/21/16 11/22/16 11/22/16 23:37 04:48 05:00 WBC 29.7 H RBC 2.73 L Hgb 7.5 L Hct 24.2 L MCV MCH 27 L MCHC RDW 17.4 H Plt Count Lymph % (Auto) [place] % (Auto) Lymph # [place] # Baso # Seg Neutrophils % Seg Neuts % (Manual) Lymphocytes % (Manual) 7.0 L Monocytes % (Manual) Eosinophils % (Manual) Basophils % (Manual) Nucleated RBC % Seg Neutrophils # Seg Neutrophils # Man 15.4 H Lymphocytes # (Manual) Monocytes # (Manual) Eosinophils # (Manual) Basophils # (Manual) PT INR Fibrinogen dRVVT Confirm Interp Factor V Activity POC ABG pH POC ABG pCO2 24.6 L POC ABG pO2 189 H ABG pO2 ABG HCO3 ABG Base Excess ABG Hemoglobin Oxyhemoglobin Sodium Potassium Chloride Carbon Dioxide BUN Creatinine Glucose POC Glucose 65 L Lactic Acid Calcium Phosphorus Magnesium Direct Bilirubin AST ALT Alkaline Phosphatase Lactate Dehydrogenase Troponin T C-Reactive Protein Total Protein Albumin Prealbumin Triglycerides Cholesterol LDL Cholesterol Direct HDL Cholesterol Urine pH Urine WBC (Auto) Urine Creatinine Urine Total Protein Fluid Total Protein Vancomycin Trough Rheumatoid Factor Complement C4 Miscellaneous Test Crossmatch 11/22/16 11/23/16 11/23/16 05:00 03:44 04:06 WBC RBC 2.52 L Hgb 7.2 L Hct 21.5 L MCV MCH MCHC RDW 17.1 H Plt Count Lymph % (Auto) [place] % (Auto) 12.4 H Lymph # [place] # 1.4 H Baso # Seg Neutrophils % Seg Neuts % (Manual) Lymphocytes % (Manual) Monocytes % (Manual) Eosinophils % (Manual) Basophils % (Manual) Nucleated RBC % Seg Neutrophils # Seg Neutrophils # Man Lymphocytes # (Manual) Monocytes # (Manual) Eosinophils # (Manual) Basophils # (Manual) PT INR Fibrinogen dRVVT Confirm Interp Factor V Activity POC ABG pH 7.493 H POC ABG pCO2 29.5 L POC ABG pO2 49 L ABG pO2 ABG HCO3 ABG Base Excess ABG Hemoglobin Oxyhemoglobin Sodium 134 L Potassium Chloride 95.9 L Carbon Dioxide 14 L D BUN 51 H Creatinine 2.6 H Glucose POC Glucose Lactic Acid Calcium Phosphorus Magnesium Direct Bilirubin AST ALT Alkaline Phosphatase Lactate Dehydrogenase Troponin T C-Reactive Protein Total Protein Albumin Prealbumin Triglycerides Cholesterol LDL Cholesterol Direct HDL Cholesterol Urine pH Urine WBC (Auto) Urine Creatinine Urine Total Protein Fluid Total Protein Vancomycin Trough Rheumatoid Factor Complement C4 Miscellaneous Test Crossmatch 11/23/16 11/23/16 11/24/16 04:06 11:29 06:39 WBC RBC Hgb Hct MCV MCH MCHC RDW Plt Count Lymph % (Auto) [place] % (Auto) Lymph # [place] # Baso # Seg Neutrophils % Seg Neuts % (Manual) Lymphocytes % (Manual) Monocytes % (Manual) Eosinophils % (Manual) Basophils % (Manual) Nucleated RBC % Seg Neutrophils # Seg Neutrophils # Man Lymphocytes # (Manual) Monocytes # (Manual) Eosinophils # (Manual) Basophils # (Manual) PT INR Fibrinogen dRVVT Confirm Interp Factor V Activity POC ABG pH POC ABG pCO2 POC ABG pO2 ABG pO2 ABG HCO3 ABG Base Excess ABG Hemoglobin Oxyhemoglobin Sodium 136 L Potassium Chloride 95.2 L Carbon Dioxide BUN 60 H Creatinine 2.9 H Glucose POC Glucose 69 L 305 H Lactic Acid Calcium Phosphorus Magnesium 1.60 L Direct Bilirubin AST ALT Alkaline Phosphatase Lactate Dehydrogenase Troponin T C-Reactive Protein Total Protein Albumin Prealbumin Triglycerides Cholesterol LDL Cholesterol Direct HDL Cholesterol Urine pH Urine WBC (Auto) Urine Creatinine Urine Total Protein Fluid Total Protein Vancomycin Trough Rheumatoid Factor Complement C4 Miscellaneous Test Crossmatch 11/24/16 11/24/16 11/24/16 06:43 08:08 08:08 WBC 11.2 H RBC 2.47 L Hgb 6.8 L Hct 20.6 L MCV MCH MCHC RDW 17.0 H Plt Count Lymph % (Auto) [place] % (Auto) 10.3 H Lymph # [place] # 1.2 H Baso # Seg Neutrophils % Seg Neuts % (Manual) Lymphocytes % (Manual) Monocytes % (Manual) Eosinophils % (Manual) Basophils % (Manual) Nucleated RBC % Seg Neutrophils # Seg Neutrophils # Man Lymphocytes # (Manual) Monocytes # (Manual) Eosinophils # (Manual) Basophils # (Manual) PT INR Fibrinogen dRVVT Confirm Interp Factor V Activity POC ABG pH POC ABG pCO2 POC ABG pO2 ABG pO2 ABG HCO3 ABG Base Excess ABG Hemoglobin Oxyhemoglobin Sodium 135 L Potassium Chloride 96.3 L Carbon Dioxide BUN 61 H Creatinine 3.1 H Glucose POC Glucose 62 L Lactic Acid Calcium 8.2 L Phosphorus Magnesium Direct Bilirubin AST ALT Alkaline Phosphatase Lactate Dehydrogenase Troponin T C-Reactive Protein Total Protein Albumin Prealbumin Triglycerides Cholesterol LDL Cholesterol Direct HDL Cholesterol Urine pH Urine WBC (Auto) Urine Creatinine Urine Total Protein Fluid Total Protein Vancomycin Trough Rheumatoid Factor Complement C4 Miscellaneous Test Crossmatch 11/24/16 11/24/1611/24/17 08:34 11:20 12:41 WBC RBC Hgb Hct MCV MCH MCHC RDW Plt Count Lymph % (Auto) [place] % (Auto) Lymph # [place] # Baso # Seg Neutrophils % Seg Neuts % (Manual) Lymphocytes % (Manual) Monocytes % (Manual) Eosinophils % (Manual) Basophils % (Manual) Nucleated RBC % Seg Neutrophils # Seg Neutrophils # Man Lymphocytes # (Manual) Monocytes # (Manual) Eosinophils # (Manual) Basophils # (Manual) PT INR Fibrinogen dRVVT Confirm Interp Factor V Activity POC ABG pH POC ABG pCO2 POC ABG pO2 ABG pO2 ABG HCO3 ABG Base Excess ABG Hemoglobin Oxyhemoglobin Sodium Potassium Chloride Carbon Dioxide BUN Creatinine Glucose POC Glucose 108 H Lactic Acid Calcium Phosphorus Magnesium 1.60 L Direct Bilirubin AST ALT Alkaline Phosphatase Lactate Dehydrogenase Troponin T C-Reactive Protein Total Protein Albumin Prealbumin Triglycerides Cholesterol LDL Cholesterol Direct HDL Cholesterol Urine pH Urine WBC (Auto) Urine Creatinine Urine Total Protein Fluid Total Protein Vancomycin Trough Rheumatoid Factor Complement C4 Miscellaneous Test Crossmatch See Detail 11/25/16 11/25/16 11/25/16 00:03 04:42 04:42 WBC RBC 3.03 L Hgb 8.6 L Hct 25.3 L MCV MCH MCHC RDW 16.2 H Plt Count Lymph % (Auto) [place] % (Auto) 8.1 H Lymph # [place] # Baso # Seg Neutrophils % 71.3 H Seg Neuts % (Manual) Lymphocytes % (Manual) Monocytes % (Manual) Eosinophils % (Manual) Basophils % (Manual) Nucleated RBC % Seg Neutrophils # Seg Neutrophils # Man Lymphocytes # (Manual) Monocytes # (Manual) Eosinophils # (Manual) Basophils # (Manual) PT INR Fibrinogen dRVVT Confirm Interp Factor V Activity POC ABG pH POC ABG pCO2 POC ABG pO2 ABG pO2 ABG HCO3 ABG Base Excess ABG Hemoglobin Oxyhemoglobin Sodium Potassium Chloride Carbon Dioxide BUN 61 H Creatinine 3.0 H Glucose 102 H POC Glucose 113 H Lactic Acid Calcium 8.2 L Phosphorus Magnesium Direct Bilirubin AST ALT Alkaline Phosphatase 142 H Lactate Dehydrogenase Troponin T C-Reactive Protein Total Protein 5.7 L Albumin 1.5 L Prealbumin Triglycerides Cholesterol LDL Cholesterol Direct HDL Cholesterol Urine pH Urine WBC (Auto) Urine Creatinine Urine Total Protein Fluid Total Protein Vancomycin Trough Rheumatoid Factor Complement C4 Miscellaneous Test Crossmatch 1011/25/16 11/25/16 05:12 11:31 14:12 WBC RBC Hgb Hct MCV MCH MCHC RDW Plt Count Lymph % (Auto) [place] % (Auto) Lymph # [place] # Baso # Seg Neutrophils % Seg Neuts % (Manual) Lymphocytes % (Manual) Monocytes % (Manual) Eosinophils % (Manual) Basophils % (Manual) Nucleated RBC % Seg Neutrophils # Seg Neutrophils # Man Lymphocytes # (Manual) Monocytes # (Manual) Eosinophils # (Manual) Basophils # (Manual) PT INR Fibrinogen dRVVT Confirm Interp Factor V Activity POC ABG pH 7.487 H POC ABG pCO2 POC ABG pO2 153 H ABG pO2 ABG HCO3 ABG Base Excess ABG Hemoglobin Oxyhemoglobin Sodium Potassium Chloride Carbon Dioxide BUN Creatinine Glucose POC Glucose 131 H 140 H Lactic Acid Calcium Phosphorus Magnesium Direct Bilirubin AST ALT Alkaline Phosphatase Lactate Dehydrogenase Troponin T C-Reactive Protein Total Protein Albumin Prealbumin Triglycerides Cholesterol LDL Cholesterol Direct HDL Cholesterol Urine pH Urine WBC (Auto) Urine Creatinine Urine Total Protein Fluid Total Protein Vancomycin Trough Rheumatoid Factor Complement C4 Miscellaneous Test Crossmatch 11/25/16 11/26/16 11/26/16 17:23 00:09 05:13 WBC RBC 2.94 L Hgb 8.4 L Hct 24.6 L MCV MCH MCHC RDW 16.4 H Plt Count Lymph % (Auto) [place] % (Auto) 12.3 H Lymph # [place] # 1.1 H Baso # Seg Neutrophils % Seg Neuts % (Manual) Lymphocytes % (Manual) Monocytes % (Manual) Eosinophils % (Manual) Basophils % (Manual) Nucleated RBC % Seg Neutrophils # Seg Neutrophils # Man Lymphocytes # (Manual) Monocytes # (Manual) Eosinophils # (Manual) Basophils # (Manual) PT INR Fibrinogen dRVVT Confirm Interp Factor V Activity POC ABG pH POC ABG pCO2 POC ABG pO2 ABG pO2 ABG HCO3 ABG Base Excess ABG Hemoglobin Oxyhemoglobin Sodium Potassium Chloride Carbon Dioxide BUN Creatinine Glucose POC Glucose 146 H 112 H Lactic Acid Calcium Phosphorus Magnesium Direct Bilirubin AST ALT Alkaline Phosphatase Lactate Dehydrogenase Troponin T C-Reactive Protein Total Protein Albumin Prealbumin Triglycerides Cholesterol LDL Cholesterol Direct HDL Cholesterol Urine pH Urine WBC (Auto) Urine Creatinine Urine Total Protein Fluid Total Protein Vancomycin Trough Rheumatoid Factor Complement C4 Miscellaneous Test Crossmatch 11/26/16 11/26/16 11/26/16 05:13 05:28 11:53 WBC RBC Hgb Hct MCV MCH MCHC RDW Plt Count Lymph % (Auto) [place] % (Auto) Lymph # [place] # Baso # Seg Neutrophils % Seg Neuts % (Manual) Lymphocytes % (Manual) Monocytes % (Manual) Eosinophils % (Manual) Basophils % (Manual) Nucleated RBC % Seg Neutrophils # Seg Neutrophils # Man Lymphocytes # (Manual) Monocytes # (Manual) Eosinophils # (Manual) Basophils # (Manual) PT INR Fibrinogen dRVVT Confirm Interp Factor V Activity POC ABG pH POC ABG pCO2 POC ABG pO2 ABG pO2 ABG HCO3 ABG Base Excess ABG Hemoglobin Oxyhemoglobin Sodium Potassium Chloride 97.8 L Carbon Dioxide BUN 37 H Creatinine 2.0 H Glucose 109 H POC Glucose 117 H 111 H Lactic Acid Calcium 7.9 L Phosphorus 1.80 L D Magnesium Direct Bilirubin AST ALT Alkaline Phosphatase Lactate Dehydrogenase Troponin T C-Reactive Protein Total Protein Albumin Prealbumin Triglycerides Cholesterol LDL Cholesterol Direct HDL Cholesterol Urine pH Urine WBC (Auto) Urine Creatinine Urine Total Protein Fluid Total Protein Vancomycin Trough Rheumatoid Factor Complement C4 Miscellaneous Test Crossmatch 11/26/16 11/27/16 11/27/16 17:14 04:50 06:02 WBC RBC Hgb Hct MCV MCH MCHC RDW Plt Count Lymph % (Auto) [place] % (Auto) Lymph # [place] # Baso # Seg Neutrophils % Seg Neuts % (Manual) Lymphocytes % (Manual) Monocytes % (Manual) Eosinophils % (Manual) Basophils % (Manual) Nucleated RBC % Seg Neutrophils # Seg Neutrophils # Man Lymphocytes # (Manual) Monocytes # (Manual) Eosinophils # (Manual) Basophils # (Manual) PT INR Fibrinogen dRVVT Confirm Interp Factor V Activity POC ABG pH POC ABG pCO2 POC ABG pO2 ABG pO2 75.2 L ABG HCO3 26.4 H ABG Base Excess ABG Hemoglobin 7.6 L Oxyhemoglobin 94.8 L Sodium Potassium Chloride Carbon Dioxide BUN 49 H Creatinine 2.3 H Glucose POC Glucose 115 H Lactic Acid Calcium Phosphorus 1.50 L Magnesium Direct Bilirubin AST ALT Alkaline Phosphatase Lactate Dehydrogenase Troponin T C-Reactive Protein Total Protein Albumin Prealbumin Triglycerides Cholesterol LDL Cholesterol Direct HDL Cholesterol Urine pH Urine WBC (Auto) Urine Creatinine Urine Total Protein Fluid Total Protein Vancomycin Trough Rheumatoid Factor Complement C4 Miscellaneous Test Crossmatch 11/27/16 11/27/16 11/27/16 06:02 11:25 17:25 WBC 11.6 H RBC 2.75 L Hgb 7.6 L Hct 23.4 L MCV MCH MCHC RDW 16.5 H Plt Count Lymph % (Auto) [place] % (Auto) Lymph # [place] # Baso # Seg Neutrophils % Seg Neuts % (Manual) Lymphocytes % (Manual) Monocytes % (Manual) Eosinophils % (Manual) Basophils % (Manual) Nucleated RBC % Seg Neutrophils # Seg Neutrophils # Man Lymphocytes # (Manual) Monocytes # (Manual) Eosinophils # (Manual) Basophils # (Manual) PT INR Fibrinogen dRVVT Confirm Interp Factor V Activity POC ABG pH POC ABG pCO2 POC ABG pO2 ABG pO2 ABG HCO3 ABG Base Excess ABG Hemoglobin Oxyhemoglobin Sodium Potassium Chloride Carbon Dioxide BUN Creatinine Glucose POC Glucose 114 H 126 H Lactic Acid Calcium Phosphorus Magnesium Direct Bilirubin AST ALT Alkaline Phosphatase Lactate Dehydrogenase Troponin T C-Reactive Protein Total Protein Albumin Prealbumin Triglycerides Cholesterol LDL Cholesterol Direct HDL Cholesterol Urine pH Urine WBC (Auto) Urine Creatinine Urine Total Protein Fluid Total Protein Vancomycin Trough Rheumatoid Factor Complement C4 Miscellaneous Test Crossmatch 11/28/16 11/28/16 11/28/16 04:45 05:33 05:44 WBC RBC Hgb Hct MCV MCH MCHC RDW Plt Count Lymph % (Auto) [place] % (Auto) Lymph # [place] # Baso # Seg Neutrophils % Seg Neuts % (Manual) Lymphocytes % (Manual) Monocytes % (Manual) Eosinophils % (Manual) Basophils % (Manual) Nucleated RBC % Seg Neutrophils # Seg Neutrophils # Man Lymphocytes # (Manual) Monocytes # (Manual) Eosinophils # (Manual) Basophils # (Manual) PT INR Fibrinogen dRVVT Confirm Interp Factor V Activity POC ABG pH POC ABG pCO2 POC ABG pO2 ABG pO2 99.3 H ABG HCO3 ABG Base Excess ABG Hemoglobin 8.3 L Oxyhemoglobin Sodium Potassium Chloride Carbon Dioxide BUN 63 H Creatinine 2.4 H Glucose 102 H POC Glucose 108 H Lactic Acid Calcium Phosphorus 1.80 L Magnesium Direct Bilirubin AST ALT Alkaline Phosphatase Lactate Dehydrogenase Troponin T C-Reactive Protein Total Protein Albumin Prealbumin Triglycerides Cholesterol LDL Cholesterol Direct HDL Cholesterol Urine pH Urine WBC (Auto) Urine Creatinine Urine Total Protein Fluid Total Protein Vancomycin Trough Rheumatoid Factor Complement C4 Miscellaneous Test Crossmatch 11/28/16 11/28/16 11/28/16 12:31 16:09 23:46 WBC RBC Hgb Hct MCV MCH MCHC RDW Plt Count Lymph % (Auto) [place] % (Auto) Lymph # [place] # Baso # Seg Neutrophils % Seg Neuts % (Manual) Lymphocytes % (Manual) Monocytes % (Manual) Eosinophils % (Manual) Basophils % (Manual) Nucleated RBC % Seg Neutrophils # Seg Neutrophils # Man Lymphocytes # (Manual) Monocytes # (Manual) Eosinophils # (Manual) Basophils # (Manual) PT INR Fibrinogen dRVVT Confirm Interp Factor V Activity POC ABG pH POC ABG pCO2 POC ABG pO2 ABG pO2 ABG HCO3 ABG Base Excess ABG Hemoglobin Oxyhemoglobin Sodium Potassium Chloride Carbon Dioxide BUN Creatinine Glucose POC Glucose 126 H 111 H 119 H Lactic Acid Calcium Phosphorus Magnesium Direct Bilirubin AST ALT Alkaline Phosphatase Lactate Dehydrogenase Troponin T C-Reactive Protein Total Protein Albumin Prealbumin Triglycerides Cholesterol LDL Cholesterol Direct HDL Cholesterol Urine pH Urine WBC (Auto) Urine Creatinine Urine Total Protein Fluid Total Protein Vancomycin Trough Rheumatoid Factor Complement C4 Miscellaneous Test Crossmatch 11/29/16 11/29/16 11/29/16 03:33 04:52 05:10 WBC RBC Hgb Hct MCV MCH MCHC RDW Plt Count Lymph % (Auto) [place] % (Auto) Lymph # [place] # Baso # Seg Neutrophils % Seg Neuts % (Manual) Lymphocytes % (Manual) Monocytes % (Manual) Eosinophils % (Manual) Basophils % (Manual) Nucleated RBC % Seg Neutrophils # Seg Neutrophils # Man Lymphocytes # (Manual) Monocytes # (Manual) Eosinophils # (Manual) Basophils # (Manual) PT INR Fibrinogen dRVVT Confirm Interp Factor V Activity POC ABG pH POC ABG pCO2 POC ABG pO2 ABG pO2 ABG HCO3 ABG Base Excess ABG Hemoglobin 7.0 L Oxyhemoglobin 94.9 L Sodium Potassium Chloride Carbon Dioxide BUN 73 H Creatinine 2.7 H Glucose POC Glucose 108 H Lactic Acid Calcium Phosphorus Magnesium Direct Bilirubin AST ALT Alkaline Phosphatase Lactate Dehydrogenase Troponin T C-Reactive Protein Total Protein Albumin Prealbumin Triglycerides Cholesterol LDL Cholesterol Direct HDL Cholesterol Urine pH Urine WBC (Auto) Urine Creatinine Urine Total Protein Fluid Total Protein Vancomycin Trough Rheumatoid Factor Complement C4 Miscellaneous Test Crossmatch 11/29/16 11/29/16 11/29/16 12:16 18:05 23:46 WBC RBC Hgb Hct MCV MCH MCHC RDW Plt Count Lymph % (Auto) [place] % (Auto) Lymph # [place] # Baso # Seg Neutrophils % Seg Neuts % (Manual) Lymphocytes % (Manual) Monocytes % (Manual) Eosinophils % (Manual) Basophils % (Manual) Nucleated RBC % Seg Neutrophils # Seg Neutrophils # Man Lymphocytes # (Manual) Monocytes # (Manual) Eosinophils # (Manual) Basophils # (Manual) PT INR Fibrinogen dRVVT Confirm Interp Factor V Activity POC ABG pH POC ABG pCO2 POC ABG pO2 ABG pO2 ABG HCO3 ABG Base Excess ABG Hemoglobin Oxyhemoglobin Sodium Potassium Chloride Carbon Dioxide BUN Creatinine Glucose POC Glucose 133 H 146 H 141 H Lactic Acid Calcium Phosphorus Magnesium Direct Bilirubin AST ALT Alkaline Phosphatase Lactate Dehydrogenase Troponin T C-Reactive Protein Total Protein Albumin Prealbumin Triglycerides Cholesterol LDL Cholesterol Direct HDL Cholesterol Urine pH Urine WBC (Auto) Urine Creatinine Urine Total Protein Fluid Total Protein Vancomycin Trough Rheumatoid Factor Complement C4 Miscellaneous Test Crossmatch 11/30/16 11/30/16 11/30/16 04:17 04:17 04:32 WBC 12.0 H RBC 2.80 L Hgb 7.8 L Hct 23.6 L MCV MCH MCHC RDW 16.6 H Plt Count Lymph % (Auto) [place] % (Auto) 11.3 H Lymph # [place] # 1.4 H Baso # Seg Neutrophils % Seg Neuts % (Manual) Lymphocytes % (Manual) Monocytes % (Manual) Eosinophils % (Manual) Basophils % (Manual) Nucleated RBC % Seg Neutrophils # 8.2 H Seg Neutrophils # Man Lymphocytes # (Manual) Monocytes # (Manual) Eosinophils # (Manual) Basophils # (Manual) PT INR Fibrinogen dRVVT Confirm Interp Factor V Activity POC ABG pH POC ABG pCO2 POC ABG pO2 ABG pO2 ABG HCO3 ABG Base Excess ABG Hemoglobin Oxyhemoglobin Sodium 169 H* D Potassium 5.1 H Chloride 121.5 H Carbon Dioxide BUN 34 H Creatinine 1.3 H D Glucose 133 H POC Glucose 131 H Lactic Acid Calcium 10.3 H Phosphorus Magnesium Direct Bilirubin AST ALT Alkaline Phosphatase Lactate Dehydrogenase Troponin T C-Reactive Protein Total Protein Albumin Prealbumin Triglycerides Cholesterol LDL Cholesterol Direct HDL Cholesterol Urine pH Urine WBC (Auto) Urine Creatinine Urine Total Protein Fluid Total Protein Vancomycin Trough Rheumatoid Factor Complement C4 Miscellaneous Test Crossmatch 11/30/16 11/30/16 11/30/16 05:45 11:10 17:26 WBC RBC Hgb Hct MCV MCH MCHC RDW Plt Count Lymph % (Auto) [place] % (Auto) Lymph # [place] # Baso # Seg Neutrophils % Seg Neuts % (Manual) Lymphocytes % (Manual) Monocytes % (Manual) Eosinophils % (Manual) Basophils % (Manual) Nucleated RBC % Seg Neutrophils # Seg Neutrophils # Man Lymphocytes # (Manual) Monocytes # (Manual) Eosinophils # (Manual) Basophils # (Manual) PT INR Fibrinogen dRVVT Confirm Interp Factor V Activity POC ABG pH POC ABG pCO2 POC ABG pO2 ABG pO2 ABG HCO3 ABG Base Excess ABG Hemoglobin Oxyhemoglobin Sodium Potassium Chloride Carbon Dioxide BUN 45 H Creatinine 1.6 H Glucose 131 H POC Glucose 146 H 134 H Lactic Acid Calcium Phosphorus Magnesium Direct Bilirubin AST ALT Alkaline Phosphatase Lactate Dehydrogenase Troponin T C-Reactive Protein Total Protein Albumin Prealbumin Triglycerides Cholesterol LDL Cholesterol Direct HDL Cholesterol Urine pH Urine WBC (Auto) Urine Creatinine Urine Total Protein Fluid Total Protein Vancomycin Trough Rheumatoid Factor Complement C4 Miscellaneous Test Crossmatch 11/30/16 12/01/16 12/01/16 23:35 00:06 03:35 WBC RBC Hgb Hct MCV MCH MCHC RDW Plt Count Lymph % (Auto) [place] % (Auto) Lymph # [place] # Baso # Seg Neutrophils % Seg Neuts % (Manual) Lymphocytes % (Manual) Monocytes % (Manual) Eosinophils % (Manual) Basophils % (Manual) Nucleated RBC % Seg Neutrophils # Seg Neutrophils # Man Lymphocytes # (Manual) Monocytes # (Manual) Eosinophils # (Manual) Basophils # (Manual) PT INR Fibrinogen dRVVT Confirm Interp Factor V Activity POC ABG pH POC ABG pCO2 POC ABG pO2 ABG pO2 ABG HCO3 ABG Base Excess ABG Hemoglobin 6.9 L Oxyhemoglobin Sodium Potassium Chloride Carbon Dioxide BUN 58 H Creatinine 1.8 H Glucose 146 H POC Glucose 151 H Lactic Acid Calcium Phosphorus Magnesium Direct Bilirubin AST ALT Alkaline Phosphatase Lactate Dehydrogenase Troponin T C-Reactive Protein Total Protein Albumin Prealbumin Triglycerides Cholesterol LDL Cholesterol Direct HDL Cholesterol Urine pH Urine WBC (Auto) Urine Creatinine Urine Total Protein Fluid Total Protein Vancomycin Trough Rheumatoid Factor Complement C4 Miscellaneous Test Crossmatch 12/01/16 12/01/16 12/01/16 03:35 05:47 11:52 WBC 12.3 H RBC 2.82 L Hgb 7.8 L Hct 23.7 L MCV MCH MCHC RDW 16.7 H Plt Count Lymph % (Auto) [place] % (Auto) 9.8 H Lymph # [place] # 1.2 H Baso # Seg Neutrophils % Seg Neuts % (Manual) Lymphocytes % (Manual) Monocytes % (Manual) Eosinophils % (Manual) Basophils % (Manual) Nucleated RBC % Seg Neutrophils # 8.4 H Seg Neutrophils # Man Lymphocytes # (Manual) Monocytes # (Manual) Eosinophils # (Manual) Basophils # (Manual) PT INR Fibrinogen dRVVT Confirm Interp Factor V Activity POC ABG pH POC ABG pCO2 POC ABG pO2 ABG pO2 ABG HCO3 ABG Base Excess ABG Hemoglobin Oxyhemoglobin Sodium Potassium Chloride Carbon Dioxide BUN Creatinine Glucose POC Glucose 152 H 152 H Lactic Acid Calcium Phosphorus Magnesium Direct Bilirubin AST ALT Alkaline Phosphatase Lactate Dehydrogenase Troponin T C-Reactive Protein Total Protein Albumin Prealbumin Triglycerides Cholesterol LDL Cholesterol Direct HDL Cholesterol Urine pH Urine WBC (Auto) Urine Creatinine Urine Total Protein Fluid Total Protein Vancomycin Trough Rheumatoid Factor Complement C4 Miscellaneous Test Crossmatch 12/01/16 12/01/16 12/02/16 17:40 23:41 05:00 WBC RBC Hgb Hct MCV MCH MCHC RDW Plt Count Lymph % (Auto) [place] % (Auto) Lymph # [place] # Baso # Seg Neutrophils % Seg Neuts % (Manual) Lymphocytes % (Manual) Monocytes % (Manual) Eosinophils % (Manual) Basophils % (Manual) Nucleated RBC % Seg Neutrophils # Seg Neutrophils # Man Lymphocytes # (Manual) Monocytes # (Manual) Eosinophils # (Manual) Basophils # (Manual) PT INR Fibrinogen dRVVT Confirm Interp Factor V Activity POC ABG pH POC ABG pCO2 POC ABG pO2 ABG pO2 ABG HCO3 ABG Base Excess ABG Hemoglobin Oxyhemoglobin Sodium Potassium Chloride Carbon Dioxide BUN 45 H Creatinine Glucose 115 H POC Glucose 140 H 144 H Lactic Acid Calcium Phosphorus Magnesium Direct Bilirubin AST ALT Alkaline Phosphatase Lactate Dehydrogenase Troponin T C-Reactive Protein Total Protein Albumin Prealbumin Triglycerides Cholesterol LDL Cholesterol Direct HDL Cholesterol Urine pH Urine WBC (Auto) Urine Creatinine Urine Total Protein Fluid Total Protein Vancomycin Trough Rheumatoid Factor Complement C4 Miscellaneous Test Crossmatch 12/02/16 12/02/16 12/02/16 05:31 11:20 17:38 WBC RBC Hgb Hct MCV MCH MCHC RDW Plt Count Lymph % (Auto) [place] % (Auto) Lymph # [place] # Baso # Seg Neutrophils % Seg Neuts % (Manual) Lymphocytes % (Manual) Monocytes % (Manual) Eosinophils % (Manual) Basophils % (Manual) Nucleated RBC % Seg Neutrophils # Seg Neutrophils # Man Lymphocytes # (Manual) Monocytes # (Manual) Eosinophils # (Manual) Basophils # (Manual) PT INR Fibrinogen dRVVT Confirm Interp Factor V Activity POC ABG pH POC ABG pCO2 POC ABG pO2 ABG pO2 ABG HCO3 ABG Base Excess ABG Hemoglobin Oxyhemoglobin Sodium Potassium Chloride Carbon Dioxide BUN Creatinine Glucose POC Glucose 136 H 177 H 139 H Lactic Acid Calcium Phosphorus Magnesium Direct Bilirubin AST ALT Alkaline Phosphatase Lactate Dehydrogenase Troponin T C-Reactive Protein Total Protein Albumin Prealbumin Triglycerides Cholesterol LDL Cholesterol Direct HDL Cholesterol Urine pH Urine WBC (Auto) Urine Creatinine Urine Total Protein Fluid Total Protein Vancomycin Trough Rheumatoid Factor Complement C4 Miscellaneous Test Crossmatch 12/02/16 12/03/16 12/03/16 23:43 04:00 04:00 WBC 20.4 H RBC 2.74 L Hgb 7.4 L Hct 23.6 L MCV MCH 27 L MCHC RDW 17.1 H Plt Count Lymph % (Auto) [place] % (Auto) Lymph # [place] # Baso # Seg Neutrophils % Seg Neuts % (Manual) 31.0 L Lymphocytes % (Manual) Monocytes % (Manual) Eosinophils % (Manual) Basophils % (Manual) Nucleated RBC % Seg Neutrophils # Seg Neutrophils # Man Lymphocytes # (Manual) Monocytes # (Manual) Eosinophils # (Manual) Basophils # (Manual) PT INR Fibrinogen dRVVT Confirm Interp Factor V Activity POC ABG pH POC ABG pCO2 POC ABG pO2 ABG pO2 ABG HCO3 ABG Base Excess ABG Hemoglobin Oxyhemoglobin Sodium Potassium Chloride Carbon Dioxide BUN 61 H Creatinine 1.6 H Glucose 119 H POC Glucose 158 H Lactic Acid Calcium Phosphorus Magnesium Direct Bilirubin AST ALT Alkaline Phosphatase Lactate Dehydrogenase Troponin T C-Reactive Protein Total Protein Albumin Prealbumin Triglycerides Cholesterol LDL Cholesterol Direct HDL Cholesterol Urine pH Urine WBC (Auto) Urine Creatinine Urine Total Protein Fluid Total Protein Vancomycin Trough Rheumatoid Factor Complement C4 Miscellaneous Test Crossmatch 12/03/16 12/03/16 12/03/16 05:02 12:11 18:16 WBC RBC Hgb Hct MCV MCH MCHC RDW Plt Count Lymph % (Auto) [place] % (Auto) Lymph # [place] # Baso # Seg Neutrophils % Seg Neuts % (Manual) Lymphocytes % (Manual) Monocytes % (Manual) Eosinophils % (Manual) Basophils % (Manual) Nucleated RBC % Seg Neutrophils # Seg Neutrophils # Man Lymphocytes # (Manual) Monocytes # (Manual) Eosinophils # (Manual) Basophils # (Manual) PT INR Fibrinogen dRVVT Confirm Interp Factor V Activity POC ABG pH POC ABG pCO2 POC ABG pO2 ABG pO2 ABG HCO3 ABG Base Excess ABG Hemoglobin Oxyhemoglobin Sodium Potassium Chloride Carbon Dioxide BUN Creatinine Glucose POC Glucose 146 H 157 H 124 H Lactic Acid Calcium Phosphorus Magnesium Direct Bilirubin AST ALT Alkaline Phosphatase Lactate Dehydrogenase Troponin T C-Reactive Protein Total Protein Albumin Prealbumin Triglycerides Cholesterol LDL Cholesterol Direct HDL Cholesterol Urine pH Urine WBC (Auto) Urine Creatinine Urine Total Protein Fluid Total Protein Vancomycin Trough Rheumatoid Factor Complement C4 Miscellaneous Test Crossmatch 12/03/16 12/04/16 12/04/16 23:41 04:00 04:45 WBC RBC Hgb Hct MCV MCH MCHC RDW Plt Count Lymph % (Auto) [place] % (Auto) Lymph # [place] # Baso # Seg Neutrophils % Seg Neuts % (Manual) Lymphocytes % (Manual) Monocytes % (Manual) Eosinophils % (Manual) Basophils % (Manual) Nucleated RBC % Seg Neutrophils # Seg Neutrophils # Man Lymphocytes # (Manual) Monocytes # (Manual) Eosinophils # (Manual) Basophils # (Manual) PT INR Fibrinogen dRVVT Confirm Interp Factor V Activity POC ABG pH POC ABG pCO2 POC ABG pO2 ABG pO2 ABG HCO3 ABG Base Excess ABG Hemoglobin Oxyhemoglobin Sodium Potassium Chloride Carbon Dioxide BUN 76 H Creatinine 1.6 H Glucose POC Glucose 130 H 136 H Lactic Acid Calcium Phosphorus Magnesium Direct Bilirubin AST ALT Alkaline Phosphatase 155 H Lactate Dehydrogenase Troponin T C-Reactive Protein Total Protein 5.5 L Albumin 1.5 L Prealbumin Triglycerides Cholesterol LDL Cholesterol Direct HDL Cholesterol Urine pH Urine WBC (Auto) Urine Creatinine Urine Total Protein Fluid Total Protein Vancomycin Trough Rheumatoid Factor Complement C4 Miscellaneous Test Crossmatch 12/04/16 12/04/16 12/05/16 12:08 17:23 00:10 WBC RBC Hgb Hct MCV MCH MCHC RDW Plt Count Lymph % (Auto) [place] % (Auto) Lymph # [place] # Baso # Seg Neutrophils % Seg Neuts % (Manual) Lymphocytes % (Manual) Monocytes % (Manual) Eosinophils % (Manual) Basophils % (Manual) Nucleated RBC % Seg Neutrophils # Seg Neutrophils # Man Lymphocytes # (Manual) Monocytes # (Manual) Eosinophils # (Manual) Basophils # (Manual) PT INR Fibrinogen dRVVT Confirm Interp Factor V Activity POC ABG pH POC ABG pCO2 POC ABG pO2 ABG pO2 ABG HCO3 ABG Base Excess ABG Hemoglobin Oxyhemoglobin Sodium Potassium Chloride Carbon Dioxide BUN Creatinine Glucose POC Glucose 114 H 129 H 124 H Lactic Acid Calcium Phosphorus Magnesium Direct Bilirubin AST ALT Alkaline Phosphatase Lactate Dehydrogenase Troponin T C-Reactive Protein Total Protein Albumin Prealbumin Triglycerides Cholesterol LDL Cholesterol Direct HDL Cholesterol Urine pH Urine WBC (Auto) Urine Creatinine Urine Total Protein Fluid Total Protein Vancomycin Trough Rheumatoid Factor Complement C4 Miscellaneous Test Crossmatch 12/05/16 12/05/16 12/05/16 05:00 05:00 05:18 WBC RBC Hgb Hct MCV MCH MCHC RDW Plt Count Lymph % (Auto) [place] % (Auto) Lymph # [place] # Baso # Seg Neutrophils % Seg Neuts % (Manual) Lymphocytes % (Manual) Monocytes % (Manual) Eosinophils % (Manual) Basophils % (Manual) Nucleated RBC % Seg Neutrophils # Seg Neutrophils # Man Lymphocytes # (Manual) Monocytes # (Manual) Eosinophils # (Manual) Basophils # (Manual) PT INR Fibrinogen dRVVT Confirm Interp Factor V Activity POC ABG pH POC ABG pCO2 POC ABG pO2 ABG pO2 ABG HCO3 ABG Base Excess ABG Hemoglobin Oxyhemoglobin Sodium Potassium Chloride Carbon Dioxide 21 L BUN 85 H Creatinine 1.9 H Glucose 131 H POC Glucose 154 H Lactic Acid Calcium Phosphorus Magnesium Direct Bilirubin AST ALT Alkaline Phosphatase Lactate Dehydrogenase Troponin T C-Reactive Protein 19.30 H Total Protein Albumin Prealbumin Triglycerides Cholesterol LDL Cholesterol Direct HDL Cholesterol Urine pH Urine WBC (Auto) Urine Creatinine Urine Total Protein Fluid Total Protein Vancomycin Trough Rheumatoid Factor Complement C4 Miscellaneous Test Crossmatch 12/05/16 12/05/16 12/05/16 11:43 17:46 23:25 WBC RBC Hgb Hct MCV MCH MCHC RDW Plt Count Lymph % (Auto) [place] % (Auto) Lymph # [place] # Baso # Seg Neutrophils % Seg Neuts % (Manual) Lymphocytes % (Manual) Monocytes % (Manual) Eosinophils % (Manual) Basophils % (Manual) Nucleated RBC % Seg Neutrophils # Seg Neutrophils # Man Lymphocytes # (Manual) Monocytes # (Manual) Eosinophils # (Manual) Basophils # (Manual) PT INR Fibrinogen dRVVT Confirm Interp Factor V Activity POC ABG pH POC ABG pCO2 POC ABG pO2 ABG pO2 ABG HCO3 ABG Base Excess ABG Hemoglobin Oxyhemoglobin Sodium Potassium Chloride Carbon Dioxide BUN Creatinine Glucose POC Glucose 117 H 113 H 111 H Lactic Acid Calcium Phosphorus Magnesium Direct Bilirubin AST ALT Alkaline Phosphatase Lactate Dehydrogenase Troponin T C-Reactive Protein Total Protein Albumin Prealbumin Triglycerides Cholesterol LDL Cholesterol Direct HDL Cholesterol Urine pH Urine WBC (Auto) Urine Creatinine Urine Total Protein Fluid Total Protein Vancomycin Trough Rheumatoid Factor Complement C4 Miscellaneous Test Crossmatch 12/05/16 12/06/16 12/06/16 Unknown 04:58 06:00 WBC RBC Hgb Hct MCV MCH MCHC RDW Plt Count Lymph % (Auto) [place] % (Auto) Lymph # [place] # Baso # Seg Neutrophils % Seg Neuts % (Manual) Lymphocytes % (Manual) Monocytes % (Manual) Eosinophils % (Manual) Basophils % (Manual) Nucleated RBC % Seg Neutrophils # Seg Neutrophils # Man Lymphocytes # (Manual) Monocytes # (Manual) Eosinophils # (Manual) Basophils # (Manual) PT INR Fibrinogen dRVVT Confirm Interp Factor V Activity POC ABG pH POC ABG pCO2 POC ABG pO2 ABG pO2 75.2 L ABG HCO3 ABG Base Excess -3.4 L ABG Hemoglobin 7.4 L Oxyhemoglobin 94.5 L Sodium Potassium Chloride Carbon Dioxide 20 L BUN 99 H Creatinine 2.1 H Glucose 126 H POC Glucose 145 H Lactic Acid Calcium Phosphorus 4.80 H Magnesium Direct Bilirubin AST ALT Alkaline Phosphatase Lactate Dehydrogenase Troponin T C-Reactive Protein Total Protein Albumin Prealbumin Triglycerides Cholesterol LDL Cholesterol Direct HDL Cholesterol Urine pH Urine WBC (Auto) Urine Creatinine Urine Total Protein Fluid Total Protein Vancomycin Trough Rheumatoid Factor Complement C4 Miscellaneous Test Crossmatch 12/06/16 12/06/16 12/06/16 06:46 11:54 17:55 WBC RBC Hgb 8.3 L Hct 26.4 L MCV MCH MCHC RDW Plt Count Lymph % (Auto) [place] % (Auto) Lymph # [place] # Baso # Seg Neutrophils % Seg Neuts % (Manual) Lymphocytes % (Manual) Monocytes % (Manual) Eosinophils % (Manual) Basophils % (Manual) Nucleated RBC % Seg Neutrophils # Seg Neutrophils # Man Lymphocytes # (Manual) Monocytes # (Manual) Eosinophils # (Manual) Basophils # (Manual) PT INR Fibrinogen dRVVT Confirm Interp Factor V Activity POC ABG pH POC ABG pCO2 POC ABG pO2 ABG pO2 ABG HCO3 ABG Base Excess ABG Hemoglobin Oxyhemoglobin Sodium Potassium Chloride Carbon Dioxide BUN Creatinine Glucose POC Glucose 126 H 157 H Lactic Acid Calcium Phosphorus Magnesium Direct Bilirubin AST ALT Alkaline Phosphatase Lactate Dehydrogenase Troponin T C-Reactive Protein Total Protein Albumin Prealbumin Triglycerides Cholesterol LDL Cholesterol Direct HDL Cholesterol Urine pH Urine WBC (Auto) Urine Creatinine Urine Total Protein Fluid Total Protein Vancomycin Trough Rheumatoid Factor Complement C4 Miscellaneous Test Crossmatch 12/06/16 12/07/16 12/07/16 23:59 05:34 06:30 WBC RBC Hgb Hct MCV MCH MCHC RDW Plt Count Lymph % (Auto) [place] % (Auto) Lymph # [place] # Baso # Seg Neutrophils % Seg Neuts % (Manual) Lymphocytes % (Manual) Monocytes % (Manual) Eosinophils % (Manual) Basophils % (Manual) Nucleated RBC % Seg Neutrophils # Seg Neutrophils # Man Lymphocytes # (Manual) Monocytes # (Manual) Eosinophils # (Manual) Basophils # (Manual) PT INR Fibrinogen dRVVT Confirm Interp Factor V Activity POC ABG pH POC ABG pCO2 POC ABG pO2 ABG pO2 ABG HCO3 ABG Base Excess ABG Hemoglobin Oxyhemoglobin Sodium Potassium Chloride Carbon Dioxide BUN 67 H Creatinine 1.4 H Glucose 126 H POC Glucose 129 H 129 H Lactic Acid Calcium Phosphorus Magnesium Direct Bilirubin AST ALT Alkaline Phosphatase Lactate Dehydrogenase Troponin T C-Reactive Protein Total Protein Albumin Prealbumin Triglycerides Cholesterol LDL Cholesterol Direct HDL Cholesterol Urine pH Urine WBC (Auto) Urine Creatinine Urine Total Protein Fluid Total Protein Vancomycin Trough Rheumatoid Factor Complement C4 Miscellaneous Test Crossmatch 12/07/16 12/07/16 12/07/16 06:30 08:00 09:45 WBC 18.8 H RBC 2.52 L Hgb 6.9 L 6.8 L Hct 21.2 L 21.1 L MCV MCH 27 L MCHC RDW 18.0 H Plt Count Lymph % (Auto) [place] % (Auto) 9.9 H Lymph # [place] # 1.9 H Baso # Seg Neutrophils % 71.8 H Seg Neuts % (Manual) Lymphocytes % (Manual) Monocytes % (Manual) Eosinophils % (Manual) Basophils % (Manual) Nucleated RBC % Seg Neutrophils # 13.5 H Seg Neutrophils # Man Lymphocytes # (Manual) Monocytes # (Manual) Eosinophils # (Manual) Basophils # (Manual) PT INR Fibrinogen dRVVT Confirm Interp Factor V Activity POC ABG pH POC ABG pCO2 POC ABG pO2 ABG pO2 ABG HCO3 ABG Base Excess ABG Hemoglobin Oxyhemoglobin Sodium Potassium Chloride Carbon Dioxide BUN Creatinine Glucose POC Glucose Lactic Acid Calcium Phosphorus Magnesium Direct Bilirubin AST ALT Alkaline Phosphatase Lactate Dehydrogenase Troponin T C-Reactive Protein Total Protein Albumin Prealbumin Triglycerides Cholesterol LDL Cholesterol Direct HDL Cholesterol Urine pH Urine WBC (Auto) Urine Creatinine Urine Total Protein Fluid Total Protein Vancomycin Trough Rheumatoid Factor Complement C4 Miscellaneous Test Crossmatch See Detail 12/07/16 12/07/16 12/07/16 11:44 18:19 23:59 WBC RBC Hgb Hct MCV MCH MCHC RDW Plt Count Lymph % (Auto) [place] % (Auto) Lymph # [place] # Baso # Seg Neutrophils % Seg Neuts % (Manual) Lymphocytes % (Manual) Monocytes % (Manual) Eosinophils % (Manual) Basophils % (Manual) Nucleated RBC % Seg Neutrophils # Seg Neutrophils # Man Lymphocytes # (Manual) Monocytes # (Manual) Eosinophils # (Manual) Basophils # (Manual) PT INR Fibrinogen dRVVT Confirm Interp Factor V Activity POC ABG pH POC ABG pCO2 POC ABG pO2 ABG pO2 ABG HCO3 ABG Base Excess ABG Hemoglobin Oxyhemoglobin Sodium Potassium Chloride Carbon Dioxide BUN Creatinine Glucose POC Glucose 137 H 138 H 133 H Lactic Acid Calcium Phosphorus Magnesium Direct Bilirubin AST ALT Alkaline Phosphatase Lactate Dehydrogenase Troponin T C-Reactive Protein Total Protein Albumin Prealbumin Triglycerides Cholesterol LDL Cholesterol Direct HDL Cholesterol Urine pH Urine WBC (Auto) Urine Creatinine Urine Total Protein Fluid Total Protein Vancomycin Trough Rheumatoid Factor Complement C4 Miscellaneous Test Crossmatch 12/08/16 12/08/16 12/08/16 05:25 05:30 05:30 WBC 23.8 H RBC 2.88 L Hgb 8.1 L Hct 24.3 L MCV MCH MCHC RDW 16.7 H Plt Count Lymph % (Auto) [place] % (Auto) Lymph # [place] # Baso # Seg Neutrophils % Seg Neuts % (Manual) 76.0 H Lymphocytes % (Manual) 9.0 L Monocytes % (Manual) 9.0 H Eosinophils % (Manual) Basophils % (Manual) Nucleated RBC % Seg Neutrophils # Seg Neutrophils # Man 18.1 H Lymphocytes # (Manual) Monocytes # (Manual) 2.1 H Eosinophils # (Manual) Basophils # (Manual) PT INR Fibrinogen dRVVT Confirm Interp Factor V Activity POC ABG pH POC ABG pCO2 POC ABG pO2 ABG pO2 ABG HCO3 ABG Base Excess ABG Hemoglobin Oxyhemoglobin Sodium Potassium Chloride Carbon Dioxide 21 L BUN 76 H Creatinine 1.6 H Glucose 133 H POC Glucose 177 H Lactic Acid Calcium Phosphorus Magnesium Direct Bilirubin AST ALT Alkaline Phosphatase Lactate Dehydrogenase Troponin T C-Reactive Protein Total Protein Albumin Prealbumin Triglycerides Cholesterol LDL Cholesterol Direct HDL Cholesterol Urine pH Urine WBC (Auto) Urine Creatinine Urine Total Protein Fluid Total Protein Vancomycin Trough Rheumatoid Factor Complement C4 Miscellaneous Test Crossmatch 12/08/16 12/08/16 12/09/16 11:45 18:00 00:00 WBC RBC Hgb Hct MCV MCH MCHC RDW Plt Count Lymph % (Auto) [place] % (Auto) Lymph # [place] # Baso # Seg Neutrophils % Seg Neuts % (Manual) Lymphocytes % (Manual) Monocytes % (Manual) Eosinophils % (Manual) Basophils % (Manual) Nucleated RBC % Seg Neutrophils # Seg Neutrophils # Man Lymphocytes # (Manual) Monocytes # (Manual) Eosinophils # (Manual) Basophils # (Manual) PT INR Fibrinogen dRVVT Confirm Interp Factor V Activity POC ABG pH POC ABG pCO2 POC ABG pO2 ABG pO2 ABG HCO3 ABG Base Excess ABG Hemoglobin Oxyhemoglobin Sodium Potassium Chloride Carbon Dioxide BUN Creatinine Glucose POC Glucose 163 H 123 H 137 H Lactic Acid Calcium Phosphorus Magnesium Direct Bilirubin AST ALT Alkaline Phosphatase Lactate Dehydrogenase Troponin T C-Reactive Protein Total Protein Albumin Prealbumin Triglycerides Cholesterol LDL Cholesterol Direct HDL Cholesterol Urine pH Urine WBC (Auto) Urine Creatinine Urine Total Protein Fluid Total Protein Vancomycin Trough Rheumatoid Factor Complement C4 Miscellaneous Test Crossmatch 12/09/16 12/09/16 12/09/16 05:34 06:00 06:00 WBC 15.5 H RBC 2.87 L Hgb 8.0 L Hct 24.2 L MCV MCH MCHC RDW 17.2 H Plt Count Lymph % (Auto) [place] % (Auto) 11.6 H Lymph # [place] # 1.8 H Baso # Seg Neutrophils % 70.8 H Seg Neuts % (Manual) Lymphocytes % (Manual) Monocytes % (Manual) Eosinophils % (Manual) Basophils % (Manual) Nucleated RBC % Seg Neutrophils # 11.0 H Seg Neutrophils # Man Lymphocytes # (Manual) Monocytes # (Manual) Eosinophils # (Manual) Basophils # (Manual) PT INR Fibrinogen dRVVT Confirm Interp Factor V Activity POC ABG pH POC ABG pCO2 POC ABG pO2 ABG pO2 ABG HCO3 ABG Base Excess ABG Hemoglobin Oxyhemoglobin Sodium Potassium Chloride Carbon Dioxide BUN 51 H Creatinine Glucose 117 H POC Glucose 136 H Lactic Acid Calcium Phosphorus Magnesium Direct Bilirubin AST ALT Alkaline Phosphatase Lactate Dehydrogenase Troponin T C-Reactive Protein Total Protein Albumin Prealbumin Triglycerides Cholesterol LDL Cholesterol Direct HDL Cholesterol Urine pH Urine WBC (Auto) Urine Creatinine Urine Total Protein Fluid Total Protein Vancomycin Trough Rheumatoid Factor Complement C4 Miscellaneous Test Crossmatch 12/09/16 12/09/16 12/09/16 12:29 17:52 23:10 WBC RBC Hgb Hct MCV MCH MCHC RDW Plt Count Lymph % (Auto) [place] % (Auto) Lymph # [place] # Baso # Seg Neutrophils % Seg Neuts % (Manual) Lymphocytes % (Manual) Monocytes % (Manual) Eosinophils % (Manual) Basophils % (Manual) Nucleated RBC % Seg Neutrophils # Seg Neutrophils # Man Lymphocytes # (Manual) Monocytes # (Manual) Eosinophils # (Manual) Basophils # (Manual) PT INR Fibrinogen dRVVT Confirm Interp Factor V Activity POC ABG pH POC ABG pCO2 POC ABG pO2 ABG pO2 ABG HCO3 ABG Base Excess ABG Hemoglobin Oxyhemoglobin Sodium Potassium Chloride Carbon Dioxide BUN Creatinine Glucose POC Glucose 139 H 140 H 129 H Lactic Acid Calcium Phosphorus Magnesium Direct Bilirubin AST ALT Alkaline Phosphatase Lactate Dehydrogenase Troponin T C-Reactive Protein Total Protein Albumin Prealbumin Triglycerides Cholesterol LDL Cholesterol Direct HDL Cholesterol Urine pH Urine WBC (Auto) Urine Creatinine Urine Total Protein Fluid Total Protein Vancomycin Trough Rheumatoid Factor Complement C4 Miscellaneous Test Crossmatch 12/10/16 12/10/16 12/10/16 05:00 05:00 06:54 WBC 15.7 H RBC 2.87 L Hgb 8.2 L Hct 24.4 L MCV MCH MCHC RDW 17.2 H Plt Count Lymph % (Auto) [place] % (Auto) 8.3 H Lymph # [place] # 1.3 H Baso # Seg Neutrophils % 72.8 H Seg Neuts % (Manual) Lymphocytes % (Manual) Monocytes % (Manual) Eosinophils % (Manual) Basophils % (Manual) Nucleated RBC % Seg Neutrophils # 11.4 H Seg Neutrophils # Man Lymphocytes # (Manual) Monocytes # (Manual) Eosinophils # (Manual) Basophils # (Manual) PT INR Fibrinogen dRVVT Confirm Interp Factor V Activity POC ABG pH POC ABG pCO2 POC ABG pO2 ABG pO2 ABG HCO3 ABG Base Excess ABG Hemoglobin Oxyhemoglobin Sodium Potassium Chloride Carbon Dioxide BUN 64 H Creatinine 1.4 H Glucose 134 H POC Glucose 154 H Lactic Acid Calcium Phosphorus Magnesium Direct Bilirubin AST ALT Alkaline Phosphatase Lactate Dehydrogenase Troponin T C-Reactive Protein Total Protein Albumin Prealbumin Triglycerides Cholesterol LDL Cholesterol Direct HDL Cholesterol Urine pH Urine WBC (Auto) Urine Creatinine Urine Total Protein Fluid Total Protein Vancomycin Trough Rheumatoid Factor Complement C4 Miscellaneous Test Crossmatch 12/10/16 12/10/16 12/10/16 11:58 17:29 23:52 WBC RBC Hgb Hct MCV MCH MCHC RDW Plt Count Lymph % (Auto) [place] % (Auto) Lymph # [place] # Baso # Seg Neutrophils % Seg Neuts % (Manual) Lymphocytes % (Manual) Monocytes % (Manual) Eosinophils % (Manual) Basophils % (Manual) Nucleated RBC % Seg Neutrophils # Seg Neutrophils # Man Lymphocytes # (Manual) Monocytes # (Manual) Eosinophils # (Manual) Basophils # (Manual) PT INR Fibrinogen dRVVT Confirm Interp Factor V Activity POC ABG pH POC ABG pCO2 POC ABG pO2 ABG pO2 ABG HCO3 ABG Base Excess ABG Hemoglobin Oxyhemoglobin Sodium Potassium Chloride Carbon Dioxide BUN Creatinine Glucose POC Glucose 144 H 163 H 125 H Lactic Acid Calcium Phosphorus Magnesium Direct Bilirubin AST ALT Alkaline Phosphatase Lactate Dehydrogenase Troponin T C-Reactive Protein Total Protein Albumin Prealbumin Triglycerides Cholesterol LDL Cholesterol Direct HDL Cholesterol Urine pH Urine WBC (Auto) Urine Creatinine Urine Total Protein Fluid Total Protein Vancomycin Trough Rheumatoid Factor Complement C4 Miscellaneous Test Crossmatch 12/11/16 12/11/16 12/11/16 05:38 06:30 06:30 WBC 14.4 H RBC 2.76 L Hgb 7.7 L Hct 23.4 L MCV MCH MCHC RDW 17.2 H Plt Count Lymph % (Auto) [place] % (Auto) 8.8 H Lymph # [place] # 1.3 H Baso # Seg Neutrophils % 72.5 H Seg Neuts % (Manual) Lymphocytes % (Manual) Monocytes % (Manual) Eosinophils % (Manual) Basophils % (Manual) Nucleated RBC % Seg Neutrophils # 10.5 H Seg Neutrophils # Man Lymphocytes # (Manual) Monocytes # (Manual) Eosinophils # (Manual) Basophils # (Manual) PT INR Fibrinogen dRVVT Confirm Interp Factor V Activity POC ABG pH POC ABG pCO2 POC ABG pO2 ABG pO2 ABG HCO3 ABG Base Excess ABG Hemoglobin Oxyhemoglobin Sodium Potassium Chloride Carbon Dioxide BUN 43 H Creatinine Glucose 124 H POC Glucose 141 H Lactic Acid Calcium 8.3 L Phosphorus Magnesium 1.60 L Direct Bilirubin AST ALT Alkaline Phosphatase Lactate Dehydrogenase Troponin T C-Reactive Protein Total Protein Albumin Prealbumin Triglycerides Cholesterol LDL Cholesterol Direct HDL Cholesterol Urine pH Urine WBC (Auto) Urine Creatinine Urine Total Protein Fluid Total Protein Vancomycin Trough Rheumatoid Factor Complement C4 Miscellaneous Test Crossmatch 12/11/16 12/11/16 12/11/16 11:15 17:59 23:48 WBC RBC Hgb Hct MCV MCH MCHC RDW Plt Count Lymph % (Auto) [place] % (Auto) Lymph # [place] # Baso # Seg Neutrophils % Seg Neuts % (Manual) Lymphocytes % (Manual) Monocytes % (Manual) Eosinophils % (Manual) Basophils % (Manual) Nucleated RBC % Seg Neutrophils # Seg Neutrophils # Man Lymphocytes # (Manual) Monocytes # (Manual) Eosinophils # (Manual) Basophils # (Manual) PT INR Fibrinogen dRVVT Confirm Interp Factor V Activity POC ABG pH POC ABG pCO2 POC ABG pO2 ABG pO2 ABG HCO3 ABG Base Excess ABG Hemoglobin Oxyhemoglobin Sodium Potassium Chloride Carbon Dioxide BUN Creatinine Glucose POC Glucose 188 H 106 H 119 H Lactic Acid Calcium Phosphorus Magnesium Direct Bilirubin AST ALT Alkaline Phosphatase Lactate Dehydrogenase Troponin T C-Reactive Protein Total Protein Albumin Prealbumin Triglycerides Cholesterol LDL Cholesterol Direct HDL Cholesterol Urine pH Urine WBC (Auto) Urine Creatinine Urine Total Protein Fluid Total Protein Vancomycin Trough Rheumatoid Factor Complement C4 Miscellaneous Test Crossmatch 12/12/16 12/12/16 12/12/16 05:00 06:01 12:20 WBC 16.7 H RBC 2.87 L Hgb 8.0 L Hct 24.2 L MCV MCH MCHC RDW 17.6 H Plt Count Lymph % (Auto) [place] % (Auto) Lymph # [place] # 1.2 H Baso # Seg Neutrophils % 75.3 H Seg Neuts % (Manual) Lymphocytes % (Manual) Monocytes % (Manual) Eosinophils % (Manual) Basophils % (Manual) Nucleated RBC % Seg Neutrophils # 12.6 H Seg Neutrophils # Man Lymphocytes # (Manual) Monocytes # (Manual) Eosinophils # (Manual) Basophils # (Manual) PT INR Fibrinogen dRVVT Confirm Interp Factor V Activity POC ABG pH POC ABG pCO2 POC ABG pO2 ABG pO2 ABG HCO3 ABG Base Excess ABG Hemoglobin Oxyhemoglobin Sodium Potassium Chloride Carbon Dioxide BUN Creatinine Glucose POC Glucose 134 H 149 H Lactic Acid Calcium Phosphorus Magnesium Direct Bilirubin AST ALT Alkaline Phosphatase Lactate Dehydrogenase Troponin T C-Reactive Protein Total Protein Albumin Prealbumin Triglycerides Cholesterol LDL Cholesterol Direct HDL Cholesterol Urine pH Urine WBC (Auto) Urine Creatinine Urine Total Protein Fluid Total Protein Vancomycin Trough Rheumatoid Factor Complement C4 Miscellaneous Test Crossmatch 12/12/16 12/12/16 12/12/16 17:38 23:01 Unknown WBC RBC Hgb Hct MCV MCH MCHC RDW Plt Count Lymph % (Auto) [place] % (Auto) Lymph # [place] # Baso # Seg Neutrophils % Seg Neuts % (Manual) Lymphocytes % (Manual) Monocytes % (Manual) Eosinophils % (Manual) Basophils % (Manual) Nucleated RBC % Seg Neutrophils # Seg Neutrophils # Man Lymphocytes # (Manual) Monocytes # (Manual) Eosinophils # (Manual) Basophils # (Manual) PT INR Fibrinogen dRVVT Confirm Interp Factor V Activity POC ABG pH POC ABG pCO2 POC ABG pO2 ABG pO2 ABG HCO3 ABG Base Excess ABG Hemoglobin Oxyhemoglobin Sodium Potassium Chloride Carbon Dioxide BUN 60 H Creatinine 1.3 H Glucose 126 H POC Glucose 127 H 144 H Lactic Acid Calcium Phosphorus Magnesium Direct Bilirubin AST ALT Alkaline Phosphatase Lactate Dehydrogenase Troponin T C-Reactive Protein Total Protein Albumin Prealbumin Triglycerides Cholesterol LDL Cholesterol Direct HDL Cholesterol Urine pH Urine WBC (Auto) Urine Creatinine Urine Total Protein Fluid Total Protein Vancomycin Trough Rheumatoid Factor Complement C4 Miscellaneous Test Crossmatch 12/13/16 12/13/16 12/13/16 04:00 04:00 05:19 WBC 18.7 H RBC 2.89 L Hgb 8.3 L Hct 24.6 L MCV MCH MCHC RDW 17.5 H Plt Count Lymph % (Auto) [place] % (Auto) Lymph # [place] # 1.3 H Baso # Seg Neutrophils % 71.5 H Seg Neuts % (Manual) Lymphocytes % (Manual) Monocytes % (Manual) Eosinophils % (Manual) Basophils % (Manual) Nucleated RBC % Seg Neutrophils # 13.4 H Seg Neutrophils # Man Lymphocytes # (Manual) Monocytes # (Manual) Eosinophils # (Manual) Basophils # (Manual) PT INR Fibrinogen dRVVT Confirm Interp Factor V Activity POC ABG pH POC ABG pCO2 POC ABG pO2 ABG pO2 ABG HCO3 ABG Base Excess ABG Hemoglobin Oxyhemoglobin Sodium Potassium Chloride Carbon Dioxide BUN 73 H Creatinine 1.5 H Glucose 141 H POC Glucose 171 H Lactic Acid Calcium Phosphorus Magnesium Direct Bilirubin AST ALT Alkaline Phosphatase Lactate Dehydrogenase Troponin T C-Reactive Protein Total Protein Albumin Prealbumin Triglycerides Cholesterol LDL Cholesterol Direct HDL Cholesterol Urine pH Urine WBC (Auto) Urine Creatinine Urine Total Protein Fluid Total Protein Vancomycin Trough Rheumatoid Factor Complement C4 Miscellaneous Test Crossmatch 12/13/16 12/13/16 12/14/16 12:28 16:48 00:01 WBC RBC Hgb Hct MCV MCH MCHC RDW Plt Count Lymph % (Auto) [place] % (Auto) Lymph # [place] # Baso # Seg Neutrophils % Seg Neuts % (Manual) Lymphocytes % (Manual) Monocytes % (Manual) Eosinophils % (Manual) Basophils % (Manual) Nucleated RBC % Seg Neutrophils # Seg Neutrophils # Man Lymphocytes # (Manual) Monocytes # (Manual) Eosinophils # (Manual) Basophils # (Manual) PT INR Fibrinogen dRVVT Confirm Interp Factor V Activity POC ABG pH POC ABG pCO2 POC ABG pO2 ABG pO2 ABG HCO3 ABG Base Excess ABG Hemoglobin Oxyhemoglobin Sodium Potassium Chloride Carbon Dioxide BUN Creatinine Glucose POC Glucose 206 H 173 H 139 H Lactic Acid Calcium Phosphorus Magnesium Direct Bilirubin AST ALT Alkaline Phosphatase Lactate Dehydrogenase Troponin T C-Reactive Protein Total Protein Albumin Prealbumin Triglycerides Cholesterol LDL Cholesterol Direct HDL Cholesterol Urine pH Urine WBC (Auto) Urine Creatinine Urine Total Protein Fluid Total Protein Vancomycin Trough Rheumatoid Factor Complement C4 Miscellaneous Test Crossmatch 12/14/16 12/14/16 12/14/16 05:16 06:10 11:17 WBC RBC Hgb Hct MCV MCH MCHC RDW Plt Count Lymph % (Auto) [place] % (Auto) Lymph # [place] # Baso # Seg Neutrophils % Seg Neuts % (Manual) Lymphocytes % (Manual) Monocytes % (Manual) Eosinophils % (Manual) Basophils % (Manual) Nucleated RBC % Seg Neutrophils # Seg Neutrophils # Man Lymphocytes # (Manual) Monocytes # (Manual) Eosinophils # (Manual) Basophils # (Manual) PT INR Fibrinogen dRVVT Confirm Interp Factor V Activity POC ABG pH POC ABG pCO2 POC ABG pO2 ABG pO2 ABG HCO3 ABG Base Excess ABG Hemoglobin Oxyhemoglobin Sodium Potassium Chloride Carbon Dioxide BUN 57 H Creatinine 1.4 H Glucose 135 H POC Glucose 158 H 137 H Lactic Acid Calcium Phosphorus Magnesium Direct Bilirubin AST ALT Alkaline Phosphatase Lactate Dehydrogenase Troponin T C-Reactive Protein Total Protein Albumin Prealbumin Triglycerides Cholesterol LDL Cholesterol Direct HDL Cholesterol Urine pH Urine WBC (Auto) Urine Creatinine Urine Total Protein Fluid Total Protein Vancomycin Trough Rheumatoid Factor Complement C4 Miscellaneous Test Crossmatch 12/14/16 12/14/16 12/15/16 17:52 23:27 04:00 WBC RBC Hgb Hct MCV MCH MCHC RDW Plt Count Lymph % (Auto) [place] % (Auto) Lymph # [place] # Baso # Seg Neutrophils % Seg Neuts % (Manual) Lymphocytes % (Manual) Monocytes % (Manual) Eosinophils % (Manual) Basophils % (Manual) Nucleated RBC % Seg Neutrophils # Seg Neutrophils # Man Lymphocytes # (Manual) Monocytes # (Manual) Eosinophils # (Manual) Basophils # (Manual) PT INR Fibrinogen dRVVT Confirm Interp Factor V Activity POC ABG pH POC ABG pCO2 POC ABG pO2 ABG pO2 ABG HCO3 ABG Base Excess ABG Hemoglobin Oxyhemoglobin Sodium Potassium Chloride 97.9 L Carbon Dioxide BUN 75 H Creatinine 1.6 H Glucose 122 H POC Glucose 149 H 163 H Lactic Acid Calcium Phosphorus 5.20 H Magnesium Direct Bilirubin AST ALT Alkaline Phosphatase Lactate Dehydrogenase Troponin T C-Reactive Protein Total Protein Albumin Prealbumin Triglycerides Cholesterol LDL Cholesterol Direct HDL Cholesterol Urine pH Urine WBC (Auto) Urine Creatinine Urine Total Protein Fluid Total Protein Vancomycin Trough Rheumatoid Factor Complement C4 Miscellaneous Test Crossmatch 12/15/16 12/15/16 12/15/16 05:50 11:24 17:01 WBC RBC Hgb Hct MCV MCH MCHC RDW Plt Count Lymph % (Auto) [place] % (Auto) Lymph # [place] # Baso # Seg Neutrophils % Seg Neuts % (Manual) Lymphocytes % (Manual) Monocytes % (Manual) Eosinophils % (Manual) Basophils % (Manual) Nucleated RBC % Seg Neutrophils # Seg Neutrophils # Man Lymphocytes # (Manual) Monocytes # (Manual) Eosinophils # (Manual) Basophils # (Manual) PT INR Fibrinogen dRVVT Confirm Interp Factor V Activity POC ABG pH POC ABG pCO2 POC ABG pO2 ABG pO2 ABG HCO3 ABG Base Excess ABG Hemoglobin Oxyhemoglobin Sodium Potassium Chloride Carbon Dioxide BUN Creatinine Glucose POC Glucose 150 H 146 H 167 H Lactic Acid Calcium Phosphorus Magnesium Direct Bilirubin AST ALT Alkaline Phosphatase Lactate Dehydrogenase Troponin T C-Reactive Protein Total Protein Albumin Prealbumin Triglycerides Cholesterol LDL Cholesterol Direct HDL Cholesterol Urine pH Urine WBC (Auto) Urine Creatinine Urine Total Protein Fluid Total Protein Vancomycin Trough Rheumatoid Factor Complement C4 Miscellaneous Test Crossmatch 12/15/16 12/16/16 12/16/16 23:34 05:25 11:24 WBC RBC Hgb Hct MCV MCH MCHC RDW Plt Count Lymph % (Auto) [place] % (Auto) Lymph # [place] # Baso # Seg Neutrophils % Seg Neuts % (Manual) Lymphocytes % (Manual) Monocytes % (Manual) Eosinophils % (Manual) Basophils % (Manual) Nucleated RBC % Seg Neutrophils # Seg Neutrophils # Man Lymphocytes # (Manual) Monocytes # (Manual) Eosinophils # (Manual) Basophils # (Manual) PT INR Fibrinogen dRVVT Confirm Interp Factor V Activity POC ABG pH POC ABG pCO2 POC ABG pO2 ABG pO2 ABG HCO3 ABG Base Excess ABG Hemoglobin Oxyhemoglobin Sodium Potassium Chloride Carbon Dioxide BUN Creatinine Glucose POC Glucose 127 H 139 H 165 H Lactic Acid Calcium Phosphorus Magnesium Direct Bilirubin AST ALT Alkaline Phosphatase Lactate Dehydrogenase Troponin T C-Reactive Protein Total Protein Albumin Prealbumin Triglycerides Cholesterol LDL Cholesterol Direct HDL Cholesterol Urine pH Urine WBC (Auto) Urine Creatinine Urine Total Protein Fluid Total Protein Vancomycin Trough Rheumatoid Factor Complement C4 Miscellaneous Test Crossmatch 12/16/16 12/16/16 12/16/16 15:30 16:25 17:31 WBC 17.8 H RBC 2.38 L Hgb 6.4 L Hct 20.3 L MCV MCH 27 L MCHC RDW 17.4 H Plt Count Lymph % (Auto) [place] % (Auto) Lymph # [place] # Baso # Seg Neutrophils % Seg Neuts % (Manual) Lymphocytes % (Manual) Monocytes % (Manual) 10.0 H Eosinophils % (Manual) Basophils % (Manual) Nucleated RBC % Seg Neutrophils # Seg Neutrophils # Man 8.5 H Lymphocytes # (Manual) Monocytes # (Manual) 1.8 H Eosinophils # (Manual) Basophils # (Manual) PT INR Fibrinogen dRVVT Confirm Interp Factor V Activity POC ABG pH POC ABG pCO2 POC ABG pO2 ABG pO2 ABG HCO3 ABG Base Excess ABG Hemoglobin Oxyhemoglobin Sodium Potassium Chloride Carbon Dioxide BUN Creatinine Glucose POC Glucose 176 H Lactic Acid Calcium Phosphorus Magnesium Direct Bilirubin AST ALT Alkaline Phosphatase Lactate Dehydrogenase Troponin T C-Reactive Protein Total Protein Albumin Prealbumin Triglycerides Cholesterol LDL Cholesterol Direct HDL Cholesterol Urine pH Urine WBC (Auto) Urine Creatinine Urine Total Protein Fluid Total Protein Vancomycin Trough Rheumatoid Factor Complement C4 Miscellaneous Test Crossmatch See Detail 12/17/16 12/17/16 12/17/16 00:14 04:00 05:00 WBC 20.0 H RBC 2.99 L Hgb 8.5 L Hct 25.7 L MCV MCH MCHC RDW 17.2 H Plt Count Lymph % (Auto) [place] % (Auto) Lymph # [place] # Baso # Seg Neutrophils % Seg Neuts % (Manual) Lymphocytes % (Manual) Monocytes % (Manual) Eosinophils % (Manual) Basophils % (Manual) Nucleated RBC % Seg Neutrophils # Seg Neutrophils # Man Lymphocytes # (Manual) Monocytes # (Manual) Eosinophils # (Manual) Basophils # (Manual) PT INR Fibrinogen dRVVT Confirm Interp Factor V Activity POC ABG pH POC ABG pCO2 POC ABG pO2 ABG pO2 ABG HCO3 ABG Base Excess ABG Hemoglobin Oxyhemoglobin Sodium Potassium Chloride 97.7 L Carbon Dioxide BUN 73 H Creatinine 1.7 H Glucose 136 H POC Glucose 148 H Lactic Acid Calcium Phosphorus 2.20 L Magnesium 2.70 H Direct Bilirubin AST ALT Alkaline Phosphatase Lactate Dehydrogenase Troponin T C-Reactive Protein Total Protein Albumin Prealbumin Triglycerides Cholesterol LDL Cholesterol Direct HDL Cholesterol Urine pH Urine WBC (Auto) Urine Creatinine Urine Total Protein Fluid Total Protein Vancomycin Trough Rheumatoid Factor Complement C4 Miscellaneous Test Crossmatch 12/17/16 12/17/16 12/17/16 05:39 12:50 16:32 WBC RBC Hgb Hct MCV MCH MCHC RDW Plt Count Lymph % (Auto) [place] % (Auto) Lymph # [place] # Baso # Seg Neutrophils % Seg Neuts % (Manual) Lymphocytes % (Manual) Monocytes % (Manual) Eosinophils % (Manual) Basophils % (Manual) Nucleated RBC % Seg Neutrophils # Seg Neutrophils # Man Lymphocytes # (Manual) Monocytes # (Manual) Eosinophils # (Manual) Basophils # (Manual) PT INR Fibrinogen dRVVT Confirm Interp Factor V Activity POC ABG pH POC ABG pCO2 POC ABG pO2 ABG pO2 ABG HCO3 ABG Base Excess ABG Hemoglobin Oxyhemoglobin Sodium Potassium Chloride Carbon Dioxide BUN Creatinine Glucose POC Glucose 162 H 146 H 169 H Lactic Acid Calcium Phosphorus Magnesium Direct Bilirubin AST ALT Alkaline Phosphatase Lactate Dehydrogenase Troponin T C-Reactive Protein Total Protein Albumin Prealbumin Triglycerides Cholesterol LDL Cholesterol Direct HDL Cholesterol Urine pH Urine WBC (Auto) Urine Creatinine Urine Total Protein Fluid Total Protein Vancomycin Trough Rheumatoid Factor Complement C4 Miscellaneous Test Crossmatch 12/17/16 12/18/16 12/18/16 23:57 05:00 05:32 WBC RBC Hgb Hct MCV MCH MCHC RDW Plt Count Lymph % (Auto) [place] % (Auto) Lymph # [place] # Baso # Seg Neutrophils % Seg Neuts % (Manual) Lymphocytes % (Manual) Monocytes % (Manual) Eosinophils % (Manual) Basophils % (Manual) Nucleated RBC % Seg Neutrophils # Seg Neutrophils # Man Lymphocytes # (Manual) Monocytes # (Manual) Eosinophils # (Manual) Basophils # (Manual) PT INR Fibrinogen dRVVT Confirm Interp Factor V Activity POC ABG pH POC ABG pCO2 POC ABG pO2 ABG pO2 ABG HCO3 ABG Base Excess ABG Hemoglobin Oxyhemoglobin Sodium Potassium Chloride 97.0 L Carbon Dioxide BUN 63 H Creatinine 1.4 H Glucose 174 H POC Glucose 145 H 201 H Lactic Acid Calcium Phosphorus 1.70 L D Magnesium Direct Bilirubin AST ALT Alkaline Phosphatase 257 H Lactate Dehydrogenase Troponin T C-Reactive Protein Total Protein 5.9 L Albumin 1.8 L Prealbumin Triglycerides Cholesterol LDL Cholesterol Direct HDL Cholesterol Urine pH Urine WBC (Auto) Urine Creatinine Urine Total Protein Fluid Total Protein Vancomycin Trough Rheumatoid Factor Complement C4 Miscellaneous Test Crossmatch 12/18/16 12/18/16 12/18/16 11:43 16:52 23:52 WBC RBC Hgb Hct MCV MCH MCHC RDW Plt Count Lymph % (Auto) [place] % (Auto) Lymph # [place] # Baso # Seg Neutrophils % Seg Neuts % (Manual) Lymphocytes % (Manual) Monocytes % (Manual) Eosinophils % (Manual) Basophils % (Manual) Nucleated RBC % Seg Neutrophils # Seg Neutrophils # Man Lymphocytes # (Manual) Monocytes # (Manual) Eosinophils # (Manual) Basophils # (Manual) PT INR Fibrinogen dRVVT Confirm Interp Factor V Activity POC ABG pH POC ABG pCO2 POC ABG pO2 ABG pO2 ABG HCO3 ABG Base Excess ABG Hemoglobin Oxyhemoglobin Sodium Potassium Chloride Carbon Dioxide BUN Creatinine Glucose POC Glucose 177 H 110 H 162 H Lactic Acid Calcium Phosphorus Magnesium Direct Bilirubin AST ALT Alkaline Phosphatase Lactate Dehydrogenase Troponin T C-Reactive Protein Total Protein Albumin Prealbumin Triglycerides Cholesterol LDL Cholesterol Direct HDL Cholesterol Urine pH Urine WBC (Auto) Urine Creatinine Urine Total Protein Fluid Total Protein Vancomycin Trough Rheumatoid Factor Complement C4 Miscellaneous Test Crossmatch 12/19/16 12/19/16 12/19/16 05:02 05:24 09:30 WBC 20.1 H RBC 2.73 L Hgb 7.6 L Hct 23.6 L MCV MCH MCHC RDW 17.6 H Plt Count Lymph % (Auto) [place] % (Auto) Lymph # [place] # Baso # Seg Neutrophils % Seg Neuts % (Manual) Lymphocytes % (Manual) 13.0 L Monocytes % (Manual) Eosinophils % (Manual) Basophils % (Manual) Nucleated RBC % 1.0 H Seg Neutrophils # Seg Neutrophils # Man 12.9 H Lymphocytes # (Manual) Monocytes # (Manual) 1.4 H Eosinophils # (Manual) Basophils # (Manual) 0.2 H PT INR Fibrinogen dRVVT Confirm Interp Factor V Activity POC ABG pH POC ABG pCO2 POC ABG pO2 ABG pO2 ABG HCO3 ABG Base Excess ABG Hemoglobin Oxyhemoglobin Sodium Potassium Chloride 97.8 L Carbon Dioxide BUN 84 H Creatinine 1.6 H Glucose 133 H POC Glucose 134 H Lactic Acid Calcium Phosphorus Magnesium Direct Bilirubin AST ALT Alkaline Phosphatase Lactate Dehydrogenase Troponin T C-Reactive Protein Total Protein Albumin Prealbumin Triglycerides Cholesterol LDL Cholesterol Direct HDL Cholesterol Urine pH Urine WBC (Auto) Urine Creatinine Urine Total Protein Fluid Total Protein Vancomycin Trough Rheumatoid Factor Complement C4 Miscellaneous Test Crossmatch 12/19/16 12/19/16 12/19/16 09:36 11:12 18:29 WBC RBC Hgb Hct MCV MCH MCHC RDW Plt Count Lymph % (Auto) [place] % (Auto) Lymph # [place] # Baso # Seg Neutrophils % Seg Neuts % (Manual) Lymphocytes % (Manual) Monocytes % (Manual) Eosinophils % (Manual) Basophils % (Manual) Nucleated RBC % Seg Neutrophils # Seg Neutrophils # Man Lymphocytes # (Manual) Monocytes # (Manual) Eosinophils # (Manual) Basophils # (Manual) PT INR Fibrinogen dRVVT Confirm Interp Factor V Activity POC ABG pH 7.503 H POC ABG pCO2 30.1 L POC ABG pO2 ABG pO2 ABG HCO3 ABG Base Excess ABG Hemoglobin Oxyhemoglobin Sodium Potassium Chloride Carbon Dioxide BUN Creatinine Glucose POC Glucose 138 H 156 H Lactic Acid Calcium Phosphorus Magnesium Direct Bilirubin AST ALT Alkaline Phosphatase Lactate Dehydrogenase Troponin T C-Reactive Protein Total Protein Albumin Prealbumin Triglycerides Cholesterol LDL Cholesterol Direct HDL Cholesterol Urine pH Urine WBC (Auto) Urine Creatinine Urine Total Protein Fluid Total Protein Vancomycin Trough Rheumatoid Factor Complement C4 Miscellaneous Test Crossmatch 12/20/16 12/20/16 12/20/16 00:03 06:17 07:07 WBC RBC Hgb Hct MCV MCH MCHC RDW Plt Count Lymph % (Auto) [place] % (Auto) Lymph # [place] # Baso # Seg Neutrophils % Seg Neuts % (Manual) Lymphocytes % (Manual) Monocytes % (Manual) Eosinophils % (Manual) Basophils % (Manual) Nucleated RBC % Seg Neutrophils # Seg Neutrophils # Man Lymphocytes # (Manual) Monocytes # (Manual) Eosinophils # (Manual) Basophils # (Manual) PT INR Fibrinogen dRVVT Confirm Interp Factor V Activity POC ABG pH POC ABG pCO2 POC ABG pO2 ABG pO2 ABG HCO3 ABG Base Excess ABG Hemoglobin Oxyhemoglobin Sodium Potassium Chloride 97.1 L Carbon Dioxide 20 L BUN 97 H Creatinine 1.8 H Glucose 153 H POC Glucose 152 H 175 H Lactic Acid Calcium Phosphorus Magnesium Direct Bilirubin AST ALT Alkaline Phosphatase Lactate Dehydrogenase Troponin T C-Reactive Protein Total Protein Albumin Prealbumin Triglycerides Cholesterol LDL Cholesterol Direct HDL Cholesterol Urine pH Urine WBC (Auto) Urine Creatinine Urine Total Protein Fluid Total Protein Vancomycin Trough Rheumatoid Factor Complement C4 Miscellaneous Test Crossmatch 12/20/16 12/20/16 12/20/16 12:00 17:42 23:53 WBC RBC Hgb Hct MCV MCH MCHC RDW Plt Count Lymph % (Auto) [place] % (Auto) Lymph # [place] # Baso # Seg Neutrophils % Seg Neuts % (Manual) Lymphocytes % (Manual) Monocytes % (Manual) Eosinophils % (Manual) Basophils % (Manual) Nucleated RBC % Seg Neutrophils # Seg Neutrophils # Man Lymphocytes # (Manual) Monocytes # (Manual) Eosinophils # (Manual) Basophils # (Manual) PT INR Fibrinogen dRVVT Confirm Interp Factor V Activity POC ABG pH POC ABG pCO2 POC ABG pO2 ABG pO2 ABG HCO3 ABG Base Excess ABG Hemoglobin Oxyhemoglobin Sodium Potassium Chloride Carbon Dioxide BUN Creatinine Glucose POC Glucose 141 H 156 H 132 H Lactic Acid Calcium Phosphorus Magnesium Direct Bilirubin AST ALT Alkaline Phosphatase Lactate Dehydrogenase Troponin T C-Reactive Protein Total Protein Albumin Prealbumin Triglycerides Cholesterol LDL Cholesterol Direct HDL Cholesterol Urine pH Urine WBC (Auto) Urine Creatinine Urine Total Protein Fluid Total Protein Vancomycin Trough Rheumatoid Factor Complement C4 Miscellaneous Test Crossmatch 12/21/16 12/21/16 12/21/16 05:49 08:50 12:19 WBC RBC Hgb Hct MCV MCH MCHC RDW Plt Count Lymph % (Auto) [place] % (Auto) Lymph # [place] # Baso # Seg Neutrophils % Seg Neuts % (Manual) Lymphocytes % (Manual) Monocytes % (Manual) Eosinophils % (Manual) Basophils % (Manual) Nucleated RBC % Seg Neutrophils # Seg Neutrophils # Man Lymphocytes # (Manual) Monocytes # (Manual) Eosinophils # (Manual) Basophils # (Manual) PT INR Fibrinogen dRVVT Confirm Interp Factor V Activity POC ABG pH POC ABG pCO2 POC ABG pO2 ABG pO2 ABG HCO3 ABG Base Excess ABG Hemoglobin Oxyhemoglobin Sodium Potassium 5.2 H D Chloride Carbon Dioxide BUN 63 H Creatinine Glucose 122 H POC Glucose 132 H 136 H Lactic Acid Calcium 8.3 L Phosphorus Magnesium Direct Bilirubin AST ALT Alkaline Phosphatase Lactate Dehydrogenase Troponin T C-Reactive Protein Total Protein Albumin Prealbumin Triglycerides Cholesterol LDL Cholesterol Direct HDL Cholesterol Urine pH Urine WBC (Auto) Urine Creatinine Urine Total Protein Fluid Total Protein Vancomycin Trough Rheumatoid Factor Complement C4 Miscellaneous Test Crossmatch 12/21/16 12/21/16 12/22/16 17:22 23:58 05:49 WBC RBC Hgb Hct MCV MCH MCHC RDW Plt Count Lymph % (Auto) [place] % (Auto) Lymph # [place] # Baso # Seg Neutrophils % Seg Neuts % (Manual) Lymphocytes % (Manual) Monocytes % (Manual) Eosinophils % (Manual) Basophils % (Manual) Nucleated RBC % Seg Neutrophils # Seg Neutrophils # Man Lymphocytes # (Manual) Monocytes # (Manual) Eosinophils # (Manual) Basophils # (Manual) PT INR Fibrinogen dRVVT Confirm Interp Factor V Activity POC ABG pH POC ABG pCO2 POC ABG pO2 ABG pO2 ABG HCO3 ABG Base Excess ABG Hemoglobin Oxyhemoglobin Sodium Potassium Chloride Carbon Dioxide BUN Creatinine Glucose POC Glucose 135 H 149 H 140 H Lactic Acid Calcium Phosphorus Magnesium Direct Bilirubin AST ALT Alkaline Phosphatase Lactate Dehydrogenase Troponin T C-Reactive Protein Total Protein Albumin Prealbumin Triglycerides Cholesterol LDL Cholesterol Direct HDL Cholesterol Urine pH Urine WBC (Auto) Urine Creatinine Urine Total Protein Fluid Total Protein Vancomycin Trough Rheumatoid Factor Complement C4 Miscellaneous Test Crossmatch 12/22/16 12/22/16 12/22/16 06:10 11:17 17:31 WBC RBC Hgb Hct MCV MCH MCHC RDW Plt Count Lymph % (Auto) [place] % (Auto) Lymph # [place] # Baso # Seg Neutrophils % Seg Neuts % (Manual) Lymphocytes % (Manual) Monocytes % (Manual) Eosinophils % (Manual) Basophils % (Manual) Nucleated RBC % Seg Neutrophils # Seg Neutrophils # Man Lymphocytes # (Manual) Monocytes # (Manual) Eosinophils # (Manual) Basophils # (Manual) PT INR Fibrinogen dRVVT Confirm Interp Factor V Activity POC ABG pH POC ABG pCO2 POC ABG pO2 ABG pO2 ABG HCO3 ABG Base Excess ABG Hemoglobin Oxyhemoglobin Sodium Potassium Chloride Carbon Dioxide BUN 76 H Creatinine 1.5 H Glucose 241 H POC Glucose 193 H 148 H Lactic Acid Calcium Phosphorus Magnesium Direct Bilirubin AST ALT Alkaline Phosphatase Lactate Dehydrogenase Troponin T C-Reactive Protein Total Protein Albumin Prealbumin Triglycerides Cholesterol LDL Cholesterol Direct HDL Cholesterol Urine pH Urine WBC (Auto) Urine Creatinine Urine Total Protein Fluid Total Protein Vancomycin Trough Rheumatoid Factor Complement C4 Miscellaneous Test Crossmatch 12/22/16 12/23/16 12/23/16 23:58 05:00 05:26 WBC RBC Hgb Hct MCV MCH MCHC RDW Plt Count Lymph % (Auto) [place] % (Auto) Lymph # [place] # Baso # Seg Neutrophils % Seg Neuts % (Manual) Lymphocytes % (Manual) Monocytes % (Manual) Eosinophils % (Manual) Basophils % (Manual) Nucleated RBC % Seg Neutrophils # Seg Neutrophils # Man Lymphocytes # (Manual) Monocytes # (Manual) Eosinophils # (Manual) Basophils # (Manual) PT INR Fibrinogen dRVVT Confirm Interp Factor V Activity POC ABG pH POC ABG pCO2 POC ABG pO2 ABG pO2 ABG HCO3 ABG Base Excess ABG Hemoglobin Oxyhemoglobin Sodium Potassium Chloride Carbon Dioxide BUN 49 H Creatinine Glucose 143 H POC Glucose 165 H 154 H Lactic Acid Calcium 8.2 L Phosphorus Magnesium 1.60 L Direct Bilirubin AST ALT Alkaline Phosphatase Lactate Dehydrogenase Troponin T C-Reactive Protein Total Protein Albumin Prealbumin Triglycerides Cholesterol LDL Cholesterol Direct HDL Cholesterol Urine pH Urine WBC (Auto) Urine Creatinine Urine Total Protein Fluid Total Protein Vancomycin Trough Rheumatoid Factor Complement C4 Miscellaneous Test Crossmatch 12/23/16 12/23/16 12/24/16 12:35 17:01 00:01 WBC RBC Hgb Hct MCV MCH MCHC RDW Plt Count Lymph % (Auto) [place] % (Auto) Lymph # [place] # Baso # Seg Neutrophils % Seg Neuts % (Manual) Lymphocytes % (Manual) Monocytes % (Manual) Eosinophils % (Manual) Basophils % (Manual) Nucleated RBC % Seg Neutrophils # Seg Neutrophils # Man Lymphocytes # (Manual) Monocytes # (Manual) Eosinophils # (Manual) Basophils # (Manual) PT INR Fibrinogen dRVVT Confirm Interp Factor V Activity POC ABG pH POC ABG pCO2 POC ABG pO2 ABG pO2 ABG HCO3 ABG Base Excess ABG Hemoglobin Oxyhemoglobin Sodium Potassium Chloride Carbon Dioxide BUN Creatinine Glucose POC Glucose 164 H 149 H 135 H Lactic Acid Calcium Phosphorus Magnesium Direct Bilirubin AST ALT Alkaline Phosphatase Lactate Dehydrogenase Troponin T C-Reactive Protein Total Protein Albumin Prealbumin Triglycerides Cholesterol LDL Cholesterol Direct HDL Cholesterol Urine pH Urine WBC (Auto) Urine Creatinine Urine Total Protein Fluid Total Protein Vancomycin Trough Rheumatoid Factor Complement C4 Miscellaneous Test Crossmatch 12/24/16 12/24/16 12/24/16 05:41 07:01 11:38 WBC RBC Hgb Hct MCV MCH MCHC RDW Plt Count Lymph % (Auto) [place] % (Auto) Lymph # [place] # Baso # Seg Neutrophils % Seg Neuts % (Manual) Lymphocytes % (Manual) Monocytes % (Manual) Eosinophils % (Manual) Basophils % (Manual) Nucleated RBC % Seg Neutrophils # Seg Neutrophils # Man Lymphocytes # (Manual) Monocytes # (Manual) Eosinophils # (Manual) Basophils # (Manual) PT INR Fibrinogen dRVVT Confirm Interp Factor V Activity POC ABG pH POC ABG pCO2 POC ABG pO2 ABG pO2 ABG HCO3 ABG Base Excess ABG Hemoglobin Oxyhemoglobin Sodium Potassium Chloride Carbon Dioxide BUN 72 H Creatinine 1.3 H Glucose 130 H POC Glucose 132 H 156 H Lactic Acid Calcium 8.2 L Phosphorus Magnesium Direct Bilirubin AST ALT Alkaline Phosphatase Lactate Dehydrogenase Troponin T C-Reactive Protein Total Protein Albumin Prealbumin Triglycerides Cholesterol LDL Cholesterol Direct HDL Cholesterol Urine pH Urine WBC (Auto) Urine Creatinine Urine Total Protein Fluid Total Protein Vancomycin Trough Rheumatoid Factor Complement C4 Miscellaneous Test Crossmatch 12/24/16 12/25/16 12/25/16 17:53 00:23 05:45 WBC RBC Hgb Hct MCV MCH MCHC RDW Plt Count Lymph % (Auto) [place] % (Auto) Lymph # [place] # Baso # Seg Neutrophils % Seg Neuts % (Manual) Lymphocytes % (Manual) Monocytes % (Manual) Eosinophils % (Manual) Basophils % (Manual) Nucleated RBC % Seg Neutrophils # Seg Neutrophils # Man Lymphocytes # (Manual) Monocytes # (Manual) Eosinophils # (Manual) Basophils # (Manual) PT INR Fibrinogen dRVVT Confirm Interp Factor V Activity POC ABG pH POC ABG pCO2 POC ABG pO2 ABG pO2 ABG HCO3 ABG Base Excess ABG Hemoglobin Oxyhemoglobin Sodium 146 H Potassium Chloride Carbon Dioxide BUN 51 H Creatinine Glucose 109 H POC Glucose 169 H 117 H Lactic Acid Calcium Phosphorus Magnesium Direct Bilirubin AST ALT Alkaline Phosphatase Lactate Dehydrogenase Troponin T C-Reactive Protein Total Protein Albumin Prealbumin Triglycerides Cholesterol LDL Cholesterol Direct HDL Cholesterol Urine pH Urine WBC (Auto) Urine Creatinine Urine Total Protein Fluid Total Protein Vancomycin Trough Rheumatoid Factor Complement C4 Miscellaneous Test Crossmatch 12/25/16 12/25/16 12/25/16 06:43 11:29 17:14 WBC RBC Hgb Hct MCV MCH MCHC RDW Plt Count Lymph % (Auto) [place] % (Auto) Lymph # [place] # Baso # Seg Neutrophils % Seg Neuts % (Manual) Lymphocytes % (Manual) Monocytes % (Manual) Eosinophils % (Manual) Basophils % (Manual) Nucleated RBC % Seg Neutrophils # Seg Neutrophils # Man Lymphocytes # (Manual) Monocytes # (Manual) Eosinophils # (Manual) Basophils # (Manual) PT INR Fibrinogen dRVVT Confirm Interp Factor V Activity POC ABG pH POC ABG pCO2 POC ABG pO2 ABG pO2 ABG HCO3 ABG Base Excess ABG Hemoglobin Oxyhemoglobin Sodium Potassium Chloride Carbon Dioxide BUN Creatinine Glucose POC Glucose 117 H 128 H 120 H Lactic Acid Calcium Phosphorus Magnesium Direct Bilirubin AST ALT Alkaline Phosphatase Lactate Dehydrogenase Troponin T C-Reactive Protein Total Protein Albumin Prealbumin Triglycerides Cholesterol LDL Cholesterol Direct HDL Cholesterol Urine pH Urine WBC (Auto) Urine Creatinine Urine Total Protein Fluid Total Protein Vancomycin Trough Rheumatoid Factor Complement C4 Miscellaneous Test Crossmatch 12/25/16 12/26/16 12/26/16 23:54 05:40 05:50 WBC 16.2 H RBC 2.32 L Hgb 6.2 L Hct 20.1 L MCV MCH 27 L MCHC RDW 18.6 H Plt Count Lymph % (Auto) [place] % (Auto) Lymph # [place] # Baso # Seg Neutrophils % Seg Neuts % (Manual) Lymphocytes % (Manual) Monocytes % (Manual) Eosinophils % (Manual) Basophils % (Manual) Nucleated RBC % Seg Neutrophils # Seg Neutrophils # Man Lymphocytes # (Manual) Monocytes # (Manual) Eosinophils # (Manual) Basophils # (Manual) PT INR Fibrinogen dRVVT Confirm Interp Factor V Activity POC ABG pH POC ABG pCO2 POC ABG pO2 ABG pO2 ABG HCO3 ABG Base Excess ABG Hemoglobin Oxyhemoglobin Sodium Potassium Chloride Carbon Dioxide BUN Creatinine Glucose POC Glucose 126 H 132 H Lactic Acid Calcium Phosphorus Magnesium Direct Bilirubin AST ALT Alkaline Phosphatase Lactate Dehydrogenase Troponin T C-Reactive Protein Total Protein Albumin Prealbumin Triglycerides Cholesterol LDL Cholesterol Direct HDL Cholesterol Urine pH Urine WBC (Auto) Urine Creatinine Urine Total Protein Fluid Total Protein Vancomycin Trough Rheumatoid Factor Complement C4 Miscellaneous Test Crossmatch 12/26/16 12/26/16 12/26/16 05:50 12:17 12:33 WBC RBC Hgb Hct MCV MCH MCHC RDW Plt Count Lymph % (Auto) [place] % (Auto) Lymph # [place] # Baso # Seg Neutrophils % Seg Neuts % (Manual) Lymphocytes % (Manual) Monocytes % (Manual) Eosinophils % (Manual) Basophils % (Manual) Nucleated RBC % Seg Neutrophils # Seg Neutrophils # Man Lymphocytes # (Manual) Monocytes # (Manual) Eosinophils # (Manual) Basophils # (Manual) PT INR Fibrinogen dRVVT Confirm Interp Factor V Activity POC ABG pH POC ABG pCO2 POC ABG pO2 ABG pO2 ABG HCO3 ABG Base Excess ABG Hemoglobin Oxyhemoglobin Sodium Potassium Chloride Carbon Dioxide BUN 73 H Creatinine 1.3 H Glucose 113 H POC Glucose 117 H Lactic Acid Calcium Phosphorus Magnesium Direct Bilirubin AST ALT Alkaline Phosphatase Lactate Dehydrogenase Troponin T C-Reactive Protein Total Protein Albumin Prealbumin Triglycerides Cholesterol LDL Cholesterol Direct HDL Cholesterol Urine pH Urine WBC (Auto) Urine Creatinine Urine Total Protein Fluid Total Protein Vancomycin Trough Rheumatoid Factor Complement C4 Miscellaneous Test Crossmatch See Detail 12/26/16 12/26/16 12/27/16 20:00 23:21 05:00 WBC RBC Hgb 8.4 L Hct 26.3 L D MCV MCH MCHC RDW Plt Count Lymph % (Auto) [place] % (Auto) Lymph # [place] # Baso # Seg Neutrophils % Seg Neuts % (Manual) Lymphocytes % (Manual) Monocytes % (Manual) Eosinophils % (Manual) Basophils % (Manual) Nucleated RBC % Seg Neutrophils # Seg Neutrophils # Man Lymphocytes # (Manual) Monocytes # (Manual) Eosinophils # (Manual) Basophils # (Manual) PT INR Fibrinogen dRVVT Confirm Interp Factor V Activity POC ABG pH POC ABG pCO2 POC ABG pO2 ABG pO2 ABG HCO3 ABG Base Excess ABG Hemoglobin Oxyhemoglobin Sodium Potassium Chloride Carbon Dioxide BUN 85 H Creatinine 1.6 H Glucose 118 H POC Glucose 124 H Lactic Acid Calcium Phosphorus 4.80 H Magnesium Direct Bilirubin AST ALT Alkaline Phosphatase Lactate Dehydrogenase Troponin T C-Reactive Protein Total Protein Albumin Prealbumin Triglycerides Cholesterol LDL Cholesterol Direct HDL Cholesterol Urine pH Urine WBC (Auto) Urine Creatinine Urine Total Protein Fluid Total Protein Vancomycin Trough Rheumatoid Factor Complement C4 Miscellaneous Test Crossmatch 12/27/16 12/27/16 12/27/16 05:00 05:35 12:24 WBC RBC Hgb 7.6 L Hct 22.8 L MCV MCH MCHC RDW Plt Count Lymph % (Auto) [place] % (Auto) Lymph # [place] # Baso # Seg Neutrophils % Seg Neuts % (Manual) Lymphocytes % (Manual) Monocytes % (Manual) Eosinophils % (Manual) Basophils % (Manual) Nucleated RBC % Seg Neutrophils # Seg Neutrophils # Man Lymphocytes # (Manual) Monocytes # (Manual) Eosinophils # (Manual) Basophils # (Manual) PT INR Fibrinogen dRVVT Confirm Interp Factor V Activity POC ABG pH POC ABG pCO2 POC ABG pO2 ABG pO2 ABG HCO3 ABG Base Excess ABG Hemoglobin Oxyhemoglobin Sodium Potassium Chloride Carbon Dioxide BUN Creatinine Glucose POC Glucose 115 H 131 H Lactic Acid Calcium Phosphorus Magnesium Direct Bilirubin AST ALT Alkaline Phosphatase Lactate Dehydrogenase Troponin T C-Reactive Protein Total Protein Albumin Prealbumin Triglycerides Cholesterol LDL Cholesterol Direct HDL Cholesterol Urine pH Urine WBC (Auto) Urine Creatinine Urine Total Protein Fluid Total Protein Vancomycin Trough Rheumatoid Factor Complement C4 Miscellaneous Test Crossmatch 12/27/16 12/28/16 12/28/16 17:16 00:18 04:00 WBC RBC Hgb Hct MCV MCH MCHC RDW Plt Count Lymph % (Auto) [place] % (Auto) Lymph # [place] # Baso # Seg Neutrophils % Seg Neuts % (Manual) Lymphocytes % (Manual) Monocytes % (Manual) Eosinophils % (Manual) Basophils % (Manual) Nucleated RBC % Seg Neutrophils # Seg Neutrophils # Man Lymphocytes # (Manual) Monocytes # (Manual) Eosinophils # (Manual) Basophils # (Manual) PT INR Fibrinogen dRVVT Confirm Interp Factor V Activity POC ABG pH POC ABG pCO2 POC ABG pO2 ABG pO2 ABG HCO3 ABG Base Excess ABG Hemoglobin Oxyhemoglobin Sodium Potassium 3.5 L Chloride Carbon Dioxide BUN 57 H Creatinine Glucose 118 H POC Glucose 136 H 120 H Lactic Acid Calcium 8.3 L Phosphorus Magnesium Direct Bilirubin AST ALT Alkaline Phosphatase Lactate Dehydrogenase Troponin T C-Reactive Protein Total Protein Albumin Prealbumin Triglycerides Cholesterol LDL Cholesterol Direct HDL Cholesterol Urine pH Urine WBC (Auto) Urine Creatinine Urine Total Protein Fluid Total Protein Vancomycin Trough Rheumatoid Factor Complement C4 Miscellaneous Test Crossmatch 12/28/16 12/28/16 12/28/16 04:00 05:11 08:30 WBC 17.0 H RBC 2.58 L Hgb 7.1 L Hct 22.0 L MCV MCH MCHC RDW 17.6 H Plt Count Lymph % (Auto) 12.2 L [place] % (Auto) Lymph # [place] # 1.1 H Baso # Seg Neutrophils % 80.5 H Seg Neuts % (Manual) Lymphocytes % (Manual) Monocytes % (Manual) Eosinophils % (Manual) Basophils % (Manual) Nucleated RBC % Seg Neutrophils # 13.7 H Seg Neutrophils # Man Lymphocytes # (Manual) Monocytes # (Manual) Eosinophils # (Manual) Basophils # (Manual) PT 16.1 H INR 1.23 H Fibrinogen dRVVT Confirm Interp Factor V Activity POC ABG pH POC ABG pCO2 POC ABG pO2 ABG pO2 ABG HCO3 ABG Base Excess ABG Hemoglobin Oxyhemoglobin Sodium Potassium Chloride Carbon Dioxide BUN Creatinine Glucose POC Glucose 122 H Lactic Acid Calcium Phosphorus Magnesium Direct Bilirubin AST ALT Alkaline Phosphatase Lactate Dehydrogenase Troponin T C-Reactive Protein Total Protein Albumin Prealbumin Triglycerides Cholesterol LDL Cholesterol Direct HDL Cholesterol Urine pH Urine WBC (Auto) Urine Creatinine Urine Total Protein Fluid Total Protein Vancomycin Trough Rheumatoid Factor Complement C4 Miscellaneous Test Crossmatch 12/28/16 12/28/16 12/28/16 12:27 16:32 23:46 WBC RBC Hgb Hct MCV MCH MCHC RDW Plt Count Lymph % (Auto) [place] % (Auto) Lymph # [place] # Baso # Seg Neutrophils % Seg Neuts % (Manual) Lymphocytes % (Manual) Monocytes % (Manual) Eosinophils % (Manual) Basophils % (Manual) Nucleated RBC % Seg Neutrophils # Seg Neutrophils # Man Lymphocytes # (Manual) Monocytes # (Manual) Eosinophils # (Manual) Basophils # (Manual) PT INR Fibrinogen dRVVT Confirm Interp Factor V Activity POC ABG pH POC ABG pCO2 POC ABG pO2 ABG pO2 ABG HCO3 ABG Base Excess ABG Hemoglobin Oxyhemoglobin Sodium Potassium Chloride Carbon Dioxide BUN Creatinine Glucose POC Glucose 127 H 117 H 108 H Lactic Acid Calcium Phosphorus Magnesium Direct Bilirubin AST ALT Alkaline Phosphatase Lactate Dehydrogenase Troponin T C-Reactive Protein Total Protein Albumin Prealbumin Triglycerides Cholesterol LDL Cholesterol Direct HDL Cholesterol Urine pH Urine WBC (Auto) Urine Creatinine Urine Total Protein Fluid Total Protein Vancomycin Trough Rheumatoid Factor Complement C4 Miscellaneous Test Crossmatch 12/29/16 12/29/16 12/29/16 05:15 05:15 05:32 WBC RBC Hgb Hct MCV MCH MCHC RDW Plt Count Lymph % (Auto) [place] % (Auto) Lymph # [place] # Baso # Seg Neutrophils % Seg Neuts % (Manual) Lymphocytes % (Manual) Monocytes % (Manual) Eosinophils % (Manual) Basophils % (Manual) Nucleated RBC % Seg Neutrophils # Seg Neutrophils # Man Lymphocytes # (Manual) Monocytes # (Manual) Eosinophils # (Manual) Basophils # (Manual) PT INR Fibrinogen dRVVT Confirm Interp Factor V Activity POC ABG pH POC ABG pCO2 POC ABG pO2 ABG pO2 ABG HCO3 ABG Base Excess ABG Hemoglobin Oxyhemoglobin Sodium Potassium Chloride Carbon Dioxide BUN 74 H Creatinine 1.6 H Glucose 111 H POC Glucose 123 H Lactic Acid Calcium Phosphorus Magnesium Direct Bilirubin AST ALT Alkaline Phosphatase Lactate Dehydrogenase Troponin T C-Reactive Protein Total Protein Albumin Prealbumin 0.110 L Triglycerides Cholesterol LDL Cholesterol Direct HDL Cholesterol Urine pH Urine WBC (Auto) Urine Creatinine Urine Total Protein Fluid Total Protein Vancomycin Trough Rheumatoid Factor Complement C4 Miscellaneous Test Crossmatch 12/29/16 12/29/16 12/29/16 11:43 13:45 14:00 WBC 13.8 H RBC 2.26 L Hgb 6.3 L Hct 20.4 L MCV MCH MCHC RDW 18.3 H Plt Count Lymph % (Auto) [place] % (Auto) Lymph # [place] # 0.9 H Baso # Seg Neutrophils % 78.6 H Seg Neuts % (Manual) Lymphocytes % (Manual) Monocytes % (Manual) Eosinophils % (Manual) Basophils % (Manual) Nucleated RBC % Seg Neutrophils # 10.8 H Seg Neutrophils # Man Lymphocytes # (Manual) Monocytes # (Manual) Eosinophils # (Manual) Basophils # (Manual) PT INR Fibrinogen dRVVT Confirm Interp Factor V Activity POC ABG pH POC ABG pCO2 POC ABG pO2 ABG pO2 ABG HCO3 ABG Base Excess ABG Hemoglobin Oxyhemoglobin Sodium Potassium Chloride Carbon Dioxide BUN Creatinine Glucose POC Glucose 133 H Lactic Acid Calcium Phosphorus Magnesium Direct Bilirubin AST ALT Alkaline Phosphatase Lactate Dehydrogenase Troponin T C-Reactive Protein Total Protein Albumin Prealbumin Triglycerides Cholesterol LDL Cholesterol Direct HDL Cholesterol Urine pH Urine WBC (Auto) Urine Creatinine Urine Total Protein Fluid Total Protein Vancomycin Trough Rheumatoid Factor Complement C4 Miscellaneous Test Crossmatch See Detail 12/29/16 12/29/16 12/29/16 17:03 23:15 23:22 WBC RBC Hgb 7.3 L Hct 22.3 L MCV MCH MCHC RDW Plt Count Lymph % (Auto) [place] % (Auto) Lymph # [place] # Baso # Seg Neutrophils % Seg Neuts % (Manual) Lymphocytes % (Manual) Monocytes % (Manual) Eosinophils % (Manual) Basophils % (Manual) Nucleated RBC % Seg Neutrophils # Seg Neutrophils # Man Lymphocytes # (Manual) Monocytes # (Manual) Eosinophils # (Manual) Basophils # (Manual) PT INR Fibrinogen dRVVT Confirm Interp Factor V Activity POC ABG pH POC ABG pCO2 POC ABG pO2 ABG pO2 ABG HCO3 ABG Base Excess ABG Hemoglobin Oxyhemoglobin Sodium Potassium Chloride Carbon Dioxide BUN Creatinine Glucose POC Glucose 139 H 120 H Lactic Acid Calcium Phosphorus Magnesium Direct Bilirubin AST ALT Alkaline Phosphatase Lactate Dehydrogenase Troponin T C-Reactive Protein Total Protein Albumin Prealbumin Triglycerides Cholesterol LDL Cholesterol Direct HDL Cholesterol Urine pH Urine WBC (Auto) Urine Creatinine Urine Total Protein Fluid Total Protein Vancomycin Trough Rheumatoid Factor Complement C4 Miscellaneous Test Crossmatch 12/30/16 12/30/16 12/30/16 04:20 04:20 05:43 WBC 15.6 H RBC 2.81 L Hgb 8.0 L Hct 24.0 L MCV MCH MCHC RDW 16.9 H Plt Count Lymph % (Auto) [place] % (Auto) Lymph # [place] # 1.0 H Baso # Seg Neutrophils % 76.2 H Seg Neuts % (Manual) Lymphocytes % (Manual) Monocytes % (Manual) Eosinophils % (Manual) Basophils % (Manual) Nucleated RBC % Seg Neutrophils # 11.9 H Seg Neutrophils # Man Lymphocytes # (Manual) Monocytes # (Manual) Eosinophils # (Manual) Basophils # (Manual) PT INR Fibrinogen dRVVT Confirm Interp Factor V Activity POC ABG pH POC ABG pCO2 POC ABG pO2 ABG pO2 ABG HCO3 ABG Base Excess ABG Hemoglobin Oxyhemoglobin Sodium Potassium Chloride Carbon Dioxide BUN 87 H Creatinine 1.8 H Glucose 119 H POC Glucose 115 H Lactic Acid Calcium Phosphorus Magnesium Direct Bilirubin AST ALT Alkaline Phosphatase Lactate Dehydrogenase Troponin T C-Reactive Protein Total Protein Albumin Prealbumin Triglycerides Cholesterol LDL Cholesterol Direct HDL Cholesterol Urine pH Urine WBC (Auto) Urine Creatinine Urine Total Protein Fluid Total Protein Vancomycin Trough Rheumatoid Factor Complement C4 Miscellaneous Test Crossmatch 12/30/16 12/30/16 12/31/16 17:27 23:21 04:00 WBC RBC Hgb Hct MCV MCH MCHC RDW Plt Count Lymph % (Auto) [place] % (Auto) Lymph # [place] # Baso # Seg Neutrophils % Seg Neuts % (Manual) Lymphocytes % (Manual) Monocytes % (Manual) Eosinophils % (Manual) Basophils % (Manual) Nucleated RBC % Seg Neutrophils # Seg Neutrophils # Man Lymphocytes # (Manual) Monocytes # (Manual) Eosinophils # (Manual) Basophils # (Manual) PT INR Fibrinogen dRVVT Confirm Interp Factor V Activity POC ABG pH POC ABG pCO2 POC ABG pO2 ABG pO2 ABG HCO3 ABG Base Excess ABG Hemoglobin Oxyhemoglobin Sodium Potassium Chloride Carbon Dioxide BUN 59 H Creatinine Glucose 298 H POC Glucose 144 H 125 H Lactic Acid Calcium Phosphorus Magnesium Direct Bilirubin AST ALT Alkaline Phosphatase Lactate Dehydrogenase Troponin T C-Reactive Protein Total Protein Albumin Prealbumin Triglycerides Cholesterol LDL Cholesterol Direct HDL Cholesterol Urine pH Urine WBC (Auto) Urine Creatinine Urine Total Protein Fluid Total Protein Vancomycin Trough Rheumatoid Factor Complement C4 Miscellaneous Test Crossmatch 12/31/16 12/31/16 12/31/16 05:11 12:18 18:17 WBC RBC Hgb Hct MCV MCH MCHC RDW Plt Count Lymph % (Auto) [place] % (Auto) Lymph # [place] # [place] # Seg Neutrophils % Seg Neuts % (Manual) Lymphocytes % (Manual) Monocytes % (Manual) Eosinophils % (Manual) Basophils % (Manual) Nucleated RBC % Seg Neutrophils # Seg Neutrophils # Man Lymphocytes # (Manual) Monocytes # (Manual) Eosinophils # (Manual) Basophils # (Manual) PT INR Fibrinogen dRVVT Confirm Interp Factor V Activity POC ABG pH POC ABG pCO2 POC ABG pO2 ABG pO2 ABG HCO3 ABG Base Excess ABG Hemoglobin Oxyhemoglobin Sodium Potassium Chloride Carbon Dioxide BUN Creatinine Glucose POC Glucose 167 H 125 H 133 H Lactic Acid Calcium Phosphorus Magnesium Direct Bilirubin AST ALT Alkaline Phosphatase Lactate Dehydrogenase Troponin T C-Reactive Protein Total Protein Albumin Prealbumin Triglycerides Cholesterol LDL Cholesterol Direct HDL Cholesterol Urine pH Urine WBC (Auto) Urine Creatinine Urine Total Protein Fluid Total Protein Vancomycin Trough Rheumatoid Factor Complement C4 Miscellaneous Test Crossmatch 12/31/16 01/01/17 01/01/17 23:55 05:00 05:12 WBC RBC Hgb Hct MCV MCH MCHC RDW Plt Count Lymph % (Auto) [place] % (Auto) Lymph # [place] # Baso # Seg Neutrophils % Seg Neuts % (Manual) Lymphocytes % (Manual) Monocytes % (Manual) Eosinophils % (Manual) Basophils % (Manual) Nucleated RBC % Seg Neutrophils # Seg Neutrophils # Man Lymphocytes # (Manual) Monocytes # (Manual) Eosinophils # (Manual) Basophils # (Manual) PT INR Fibrinogen dRVVT Confirm Interp Factor V Activity POC ABG pH POC ABG pCO2 POC ABG pO2 ABG pO2 ABG HCO3 ABG Base Excess ABG Hemoglobin Oxyhemoglobin Sodium Potassium Chloride Carbon Dioxide BUN 76 H Creatinine 1.5 H Glucose 109 H POC Glucose 129 H 129 H Lactic Acid Calcium Phosphorus Magnesium Direct Bilirubin AST ALT Alkaline Phosphatase 536 H Lactate Dehydrogenase Troponin T C-Reactive Protein Total Protein Albumin 1.5 L Prealbumin Triglycerides Cholesterol LDL Cholesterol Direct HDL Cholesterol Urine pH Urine WBC (Auto) Urine Creatinine Urine Total Protein Fluid Total Protein Vancomycin Trough Rheumatoid Factor Complement C4 Miscellaneous Test Crossmatch 01/01/17 01/01/17 01/01/17 12:25 17:01 23:32 WBC RBC Hgb Hct MCV MCH MCHC RDW Plt Count Lymph % (Auto) [place] % (Auto) Lymph # [place] # Baso # Seg Neutrophils % Seg Neuts % (Manual) Lymphocytes % (Manual) Monocytes % (Manual) Eosinophils % (Manual) Basophils % (Manual) Nucleated RBC % Seg Neutrophils # Seg Neutrophils # Man Lymphocytes # (Manual) Monocytes # (Manual) Eosinophils # (Manual) Basophils # (Manual) PT INR Fibrinogen dRVVT Confirm Interp Factor V Activity POC ABG pH POC ABG pCO2 POC ABG pO2 ABG pO2 ABG HCO3 ABG Base Excess ABG Hemoglobin Oxyhemoglobin Sodium Potassium Chloride Carbon Dioxide BUN Creatinine Glucose POC Glucose 140 H 142 H 112 H Lactic Acid Calcium Phosphorus Magnesium Direct Bilirubin AST ALT Alkaline Phosphatase Lactate Dehydrogenase Troponin T C-Reactive Protein Total Protein Albumin Prealbumin Triglycerides Cholesterol LDL Cholesterol Direct HDL Cholesterol Urine pH Urine WBC (Auto) Urine Creatinine Urine Total Protein Fluid Total Protein Vancomycin Trough Rheumatoid Factor Complement C4 Miscellaneous Test Crossmatch 01/02/17 01/02/17 01/02/17 04:56 06:00 11:37 WBC RBC Hgb Hct MCV MCH MCHC RDW Plt Count Lymph % (Auto) [place] % (Auto) Lymph # [place] # Baso # Seg Neutrophils % Seg Neuts % (Manual) Lymphocytes % (Manual) Monocytes % (Manual) Eosinophils % (Manual) Basophils % (Manual) Nucleated RBC % Seg Neutrophils # Seg Neutrophils # Man Lymphocytes # (Manual) Monocytes # (Manual) Eosinophils # (Manual) Basophils # (Manual) PT INR Fibrinogen dRVVT Confirm Interp Factor V Activity POC ABG pH POC ABG pCO2 POC ABG pO2 ABG pO2 ABG HCO3 ABG Base Excess ABG Hemoglobin Oxyhemoglobin Sodium Potassium Chloride Carbon Dioxide BUN 88 H Creatinine 1.7 H Glucose 113 H POC Glucose 136 H 200 H Lactic Acid Calcium Phosphorus Magnesium Direct Bilirubin AST ALT Alkaline Phosphatase Lactate Dehydrogenase Troponin T C-Reactive Protein Total Protein Albumin Prealbumin Triglycerides Cholesterol LDL Cholesterol Direct HDL Cholesterol Urine pH Urine WBC (Auto) Urine Creatinine Urine Total Protein Fluid Total Protein Vancomycin Trough Rheumatoid Factor Complement C4 Miscellaneous Test Crossmatch 01/02/17 01/02/17 01/03/17 17:42 22:52 04:54 WBC RBC Hgb Hct MCV MCH MCHC RDW Plt Count Lymph % (Auto) [place] % (Auto) Lymph # [place] # Baso # Seg Neutrophils % Seg Neuts % (Manual) Lymphocytes % (Manual) Monocytes % (Manual) Eosinophils % (Manual) Basophils % (Manual) Nucleated RBC % Seg Neutrophils # Seg Neutrophils # Man Lymphocytes # (Manual) Monocytes # (Manual) Eosinophils # (Manual) Basophils # (Manual) PT INR Fibrinogen dRVVT Confirm Interp Factor V Activity POC ABG pH POC ABG pCO2 POC ABG pO2 ABG pO2 ABG HCO3 ABG Base Excess ABG Hemoglobin Oxyhemoglobin Sodium Potassium Chloride Carbon Dioxide BUN Creatinine Glucose POC Glucose 112 H 133 H 111 H Lactic Acid Calcium Phosphorus Magnesium Direct Bilirubin AST ALT Alkaline Phosphatase Lactate Dehydrogenase Troponin T C-Reactive Protein Total Protein Albumin Prealbumin Triglycerides Cholesterol LDL Cholesterol Direct HDL Cholesterol Urine pH Urine WBC (Auto) Urine Creatinine Urine Total Protein Fluid Total Protein Vancomycin Trough Rheumatoid Factor Complement C4 Miscellaneous Test Crossmatch 01/03/17 01/03/17 01/03/17 05:00 05:00 14:02 WBC 11.2 H RBC 2.56 L Hgb 7.2 L Hct 22.3 L MCV MCH MCHC RDW 17.3 H Plt Count Lymph % (Auto) [place] % (Auto) 10.0 H Lymph # [place] # 1.1 H Baso # Seg Neutrophils % 70.5 H Seg Neuts % (Manual) Lymphocytes % (Manual) Monocytes % (Manual) Eosinophils % (Manual) Basophils % (Manual) Nucleated RBC % Seg Neutrophils # 7.9 H Seg Neutrophils # Man Lymphocytes # (Manual) Monocytes # (Manual) Eosinophils # (Manual) Basophils # (Manual) PT INR Fibrinogen dRVVT Confirm Interp Factor V Activity POC ABG pH POC ABG pCO2 POC ABG pO2 ABG pO2 ABG HCO3 ABG Base Excess ABG Hemoglobin Oxyhemoglobin Sodium Potassium Chloride Carbon Dioxide BUN 60 H Creatinine 1.3 H Glucose 110 H POC Glucose 119 H Lactic Acid Calcium Phosphorus Magnesium Direct Bilirubin AST ALT Alkaline Phosphatase Lactate Dehydrogenase Troponin T C-Reactive Protein Total Protein Albumin Prealbumin Triglycerides Cholesterol LDL Cholesterol Direct HDL Cholesterol Urine pH Urine WBC (Auto) Urine Creatinine Urine Total Protein Fluid Total Protein Vancomycin Trough Rheumatoid Factor Complement C4 Miscellaneous Test Crossmatch 01/03/17 01/03/17 01/04/17 18:13 23:40 05:57 WBC RBC Hgb Hct MCV MCH MCHC RDW Plt Count Lymph % (Auto) [place] % (Auto) Lymph # [place] # Baso # Seg Neutrophils % Seg Neuts % (Manual) Lymphocytes % (Manual) Monocytes % (Manual) Eosinophils % (Manual) Basophils % (Manual) Nucleated RBC % Seg Neutrophils # Seg Neutrophils # Man Lymphocytes # (Manual) Monocytes # (Manual) Eosinophils # (Manual) Basophils # (Manual) PT INR Fibrinogen dRVVT Confirm Interp Factor V Activity POC ABG pH POC ABG pCO2 POC ABG pO2 ABG pO2 ABG HCO3 ABG Base Excess ABG Hemoglobin Oxyhemoglobin Sodium Potassium Chloride Carbon Dioxide BUN Creatinine Glucose POC Glucose 107 H 129 H 111 H Lactic Acid Calcium Phosphorus Magnesium Direct Bilirubin AST ALT Alkaline Phosphatase Lactate Dehydrogenase Troponin T C-Reactive Protein Total Protein Albumin Prealbumin Triglycerides Cholesterol LDL Cholesterol Direct HDL Cholesterol Urine pH Urine WBC (Auto) Urine Creatinine Urine Total Protein Fluid Total Protein Vancomycin Trough Rheumatoid Factor Complement C4 Miscellaneous Test Crossmatch 01/04/17 01/04/17 01/04/17 12:46 15:27 17:11 WBC RBC Hgb Hct MCV MCH MCHC RDW Plt Count Lymph % (Auto) [place] % (Auto) Lymph # [place] # Baso # Seg Neutrophils % Seg Neuts % (Manual) Lymphocytes % (Manual) Monocytes % (Manual) Eosinophils % (Manual) Basophils % (Manual) Nucleated RBC % Seg Neutrophils # Seg Neutrophils # Man Lymphocytes # (Manual) Monocytes # (Manual) Eosinophils # (Manual) Basophils # (Manual) PT INR Fibrinogen dRVVT Confirm Interp Factor V Activity POC ABG pH POC ABG pCO2 POC ABG pO2 ABG pO2 ABG HCO3 ABG Base Excess ABG Hemoglobin Oxyhemoglobin Sodium Potassium Chloride Carbon Dioxide BUN 43 H Creatinine Glucose 124 H POC Glucose 159 H 125 H Lactic Acid Calcium 8.0 L Phosphorus 2.10 L Magnesium Direct Bilirubin AST ALT Alkaline Phosphatase Lactate Dehydrogenase Troponin T C-Reactive Protein Total Protein Albumin Prealbumin Triglycerides Cholesterol LDL Cholesterol Direct HDL Cholesterol Urine pH Urine WBC (Auto) Urine Creatinine Urine Total Protein Fluid Total Protein Vancomycin Trough Rheumatoid Factor Complement C4 Miscellaneous Test Crossmatch 01/04/17 01/05/17 01/05/17 23:31 04:00 05:46 WBC RBC Hgb Hct MCV MCH MCHC RDW Plt Count Lymph % (Auto) [place] % (Auto) Lymph # [place] # Baso # Seg Neutrophils % Seg Neuts % (Manual) Lymphocytes % (Manual) Monocytes % (Manual) Eosinophils % (Manual) Basophils % (Manual) Nucleated RBC % Seg Neutrophils # Seg Neutrophils # Man Lymphocytes # (Manual) Monocytes # (Manual) Eosinophils # (Manual) Basophils # (Manual) PT INR Fibrinogen dRVVT Confirm Interp Factor V Activity POC ABG pH POC ABG pCO2 POC ABG pO2 ABG pO2 ABG HCO3 ABG Base Excess ABG Hemoglobin Oxyhemoglobin Sodium Potassium Chloride Carbon Dioxide BUN 52 H Creatinine 1.3 H Glucose 113 H POC Glucose 123 H 118 H Lactic Acid Calcium Phosphorus 2.40 L Magnesium Direct Bilirubin AST ALT Alkaline Phosphatase Lactate Dehydrogenase Troponin T C-Reactive Protein Total Protein Albumin Prealbumin Triglycerides Cholesterol LDL Cholesterol Direct HDL Cholesterol Urine pH Urine WBC (Auto) Urine Creatinine Urine Total Protein Fluid Total Protein Vancomycin Trough Rheumatoid Factor Complement C4 Miscellaneous Test Crossmatch 01/05/17 01/05/17 01/05/17 11:41 17:48 23:27 WBC RBC Hgb Hct MCV MCH MCHC RDW Plt Count Lymph % (Auto) [place] % (Auto) Lymph # [place] # Baso # Seg Neutrophils % Seg Neuts % (Manual) Lymphocytes % (Manual) Monocytes % (Manual) Eosinophils % (Manual) Basophils % (Manual) Nucleated RBC % Seg Neutrophils # Seg Neutrophils # Man Lymphocytes # (Manual) Monocytes # (Manual) Eosinophils # (Manual) Basophils # (Manual) PT INR Fibrinogen dRVVT Confirm Interp Factor V Activity POC ABG pH POC ABG pCO2 POC ABG pO2 ABG pO2 ABG HCO3 ABG Base Excess ABG Hemoglobin Oxyhemoglobin Sodium Potassium Chloride Carbon Dioxide BUN Creatinine Glucose POC Glucose 163 H 142 H 155 H Lactic Acid Calcium Phosphorus Magnesium Direct Bilirubin AST ALT Alkaline Phosphatase Lactate Dehydrogenase Troponin T C-Reactive Protein Total Protein Albumin Prealbumin Triglycerides Cholesterol LDL Cholesterol Direct HDL Cholesterol Urine pH Urine WBC (Auto) Urine Creatinine Urine Total Protein Fluid Total Protein Vancomycin Trough Rheumatoid Factor Complement C4 Miscellaneous Test Crossmatch 01/06/17 01/06/17 01/06/17 05:20 07:35 11:18 WBC RBC Hgb Hct MCV MCH MCHC RDW Plt Count Lymph % (Auto) [place] % (Auto) Lymph # [place] # Baso # Seg Neutrophils % Seg Neuts % (Manual) Lymphocytes % (Manual) Monocytes % (Manual) Eosinophils % (Manual) Basophils % (Manual) Nucleated RBC % Seg Neutrophils # Seg Neutrophils # Man Lymphocytes # (Manual) Monocytes # (Manual) Eosinophils # (Manual) Basophils # (Manual) PT INR Fibrinogen dRVVT Confirm Interp Factor V Activity POC ABG pH POC ABG pCO2 POC ABG pO2 ABG pO2 ABG HCO3 ABG Base Excess ABG Hemoglobin Oxyhemoglobin Sodium Potassium Chloride Carbon Dioxide BUN 74 H Creatinine 1.6 H Glucose 135 H POC Glucose 108 H 149 H Lactic Acid Calcium Phosphorus Magnesium Direct Bilirubin AST ALT Alkaline Phosphatase Lactate Dehydrogenase Troponin T C-Reactive Protein Total Protein Albumin Prealbumin Triglycerides Cholesterol LDL Cholesterol Direct HDL Cholesterol Urine pH Urine WBC (Auto) Urine Creatinine Urine Total Protein Fluid Total Protein Vancomycin Trough Rheumatoid Factor Complement C4 Miscellaneous Test Crossmatch 01/06/17 01/07/17 01/07/17 17:17 00:23 05:31 WBC RBC Hgb Hct MCV MCH MCHC RDW Plt Count Lymph % (Auto) [place] % (Auto) Lymph # [place] # Baso # Seg Neutrophils % Seg Neuts % (Manual) Lymphocytes % (Manual) Monocytes % (Manual) Eosinophils % (Manual) Basophils % (Manual) Nucleated RBC % Seg Neutrophils # Seg Neutrophils # Man Lymphocytes # (Manual) Monocytes # (Manual) Eosinophils # (Manual) Basophils # (Manual) PT INR Fibrinogen dRVVT Confirm Interp Factor V Activity POC ABG pH POC ABG pCO2 POC ABG pO2 ABG pO2 ABG HCO3 ABG Base Excess ABG Hemoglobin Oxyhemoglobin Sodium Potassium Chloride Carbon Dioxide BUN Creatinine Glucose POC Glucose 146 H 165 H 153 H Lactic Acid Calcium Phosphorus Magnesium Direct Bilirubin AST ALT Alkaline Phosphatase Lactate Dehydrogenase Troponin T C-Reactive Protein Total Protein Albumin Prealbumin Triglycerides Cholesterol LDL Cholesterol Direct HDL Cholesterol Urine pH Urine WBC (Auto) Urine Creatinine Urine Total Protein Fluid Total Protein Vancomycin Trough Rheumatoid Factor Complement C4 Miscellaneous Test Crossmatch 01/07/17 01/07/17 06:00 11:39 WBC RBC Hgb Hct MCV MCH MCHC RDW Plt Count Lymph % (Auto) [place] % (Auto) Lymph # [place] # Baso # Seg Neutrophils % Seg Neuts % (Manual) Lymphocytes % (Manual) Monocytes % (Manual) Eosinophils % (Manual) Basophils % (Manual) Nucleated RBC % Seg Neutrophils # Seg Neutrophils # Man Lymphocytes # (Manual) Monocytes # (Manual) Eosinophils # (Manual) Basophils # (Manual) PT INR Fibrinogen dRVVT Confirm Interp Factor V Activity POC ABG pH POC ABG pCO2 POC ABG pO2 ABG pO2 ABG HCO3 ABG Base Excess ABG Hemoglobin Oxyhemoglobin Sodium Potassium Chloride Carbon Dioxide BUN 42 H Creatinine Glucose 175 H POC Glucose 163 H Lactic Acid Calcium Phosphorus 2.40 L D Magnesium Direct Bilirubin AST ALT Alkaline Phosphatase Lactate Dehydrogenase Troponin T C-Reactive Protein Total Protein Albumin Prealbumin Triglycerides Cholesterol LDL Cholesterol Direct HDL Cholesterol Urine pH Urine WBC (Auto) Urine Creatinine Urine Total Protein Fluid Total Protein Vancomycin Trough Rheumatoid Factor Complement C4 Miscellaneous Test Crossmatch CT scan - chest: other (US CHest demonstrates small to moderate bilateral effusions on my review; R>L) Allied health notes reviewed: RT
--- NOTE | 2017-01-07 12:53 | Progress Note ---
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 Epogen 20k TIW * Dose medications for renal function * Avoid potential nephrotoxins * Rate control per cardiology * Vent management per pulm/CCM * Pressors prn for MAP>65 Subjective Date of service: 01/07/17 Principal diagnosis: Acute resp failure on MVS; S/P Acute CVA; Acute Encephalopathy; JUANITA Interval history: new events from last pm noted Objective - Exam Narrative Exam: Gen. appearance: Patient lying in bed, no apparent distress, 4. restraints HEENT: Normocephalic, atraumatic, pupils equally round and reactive to light, extraocular movement intact, and no sclericterus,. No JVD or thyromegaly or nodule,neck supple, no carotid bruit ,mucous membranes moist, unable to examine oral cavity Heart: S1, S2, regular rate and rhythm Lungs: Clear to auscultation bilaterally, breathing comfortable Abdomen: Positive bowel sounds, nontender, nondistended, no organomegaly Extremity: No edema, cyanosis, clubbing Skin: No rash, nodules, warm, dry Neuro: Difficult to assess, facial droop, moves all 4 extremities - Vital Signs Vital signs: Vital Signs - 12hr 01/07/17 01/07/17 01/07/17 01:00 01:15 01:30 Temperature Pulse Rate 113 H 114 H 117 H Pulse Rate [ 111 H Bilateral Throughout] Pulse Rate [ From Monitor] Respiratory 23 22 27 H Rate Respiratory 21 Rate [Bilateral Throughout] Blood Pressure 97/57 108/59 122/71 O2 Sat by Pulse Oximetry O2 Sat by Pulse Oximetry [ Assessment] 01/07/17 01/07/17 01/07/17 01:45 02:00 02:15 Temperature Pulse Rate 114 H 114 H 114 H Pulse Rate [ 113 H Bilateral Throughout] Pulse Rate [ From Monitor] Respiratory 18 20 20 Rate Respiratory 21 Rate [Bilateral Throughout] Blood Pressure 110/58 105/68 116/63 O2 Sat by Pulse Oximetry O2 Sat by Pulse Oximetry [ Assessment] 01/07/17 01/07/17 01/07/17 02:30 02:45 03:00 Temperature Pulse Rate 117 H 110 H 114 H Pulse Rate [ Bilateral Throughout] Pulse Rate [ From Monitor] Respiratory 16 16 20 Rate Respiratory Rate [Bilateral Throughout] Blood Pressure 111/63 112/68 116/68 O2 Sat by Pulse Oximetry O2 Sat by Pulse Oximetry [ Assessment] 01/07/17 01/07/17 01/07/17 03:15 03:30 03:45 Temperature Pulse Rate 117 H 117 H 117 H Pulse Rate [ Bilateral Throughout] Pulse Rate [ From Monitor] Respiratory 21 20 20 Rate Respiratory Rate [Bilateral Throughout] Blood Pressure 116/65 109/69 111/58 O2 Sat by Pulse Oximetry O2 Sat by Pulse Oximetry [ Assessment] 01/07/17 01/07/17 01/07/17 04:00 04:15 04:30 Temperature Pulse Rate 117 H 119 H 114 H Pulse Rate [ Bilateral Throughout] Pulse Rate [ 109 H From Monitor] Respiratory 20 19 20 Rate Respiratory Rate [Bilateral Throughout] Blood Pressure 99/61 114/66 104/56 O2 Sat by Pulse 100 Oximetry O2 Sat by Pulse Oximetry [ Assessment] 01/07/17 01/07/17 01/07/17 04:46 05:00 05:16 Temperature Pulse Rate 127 H 134 H 133 H Pulse Rate [ Bilateral Throughout] Pulse Rate [ From Monitor] Respiratory 16 14 28 H Rate Respiratory Rate [Bilateral Throughout] Blood Pressure 104/56 104/56 104/56 O2 Sat by Pulse Oximetry O2 Sat by Pulse Oximetry [ Assessment] 01/07/17 01/07/17 01/07/17 05:30 05:46 06:00 Temperature 97.3 F L Pulse Rate 126 H 128 H 123 H Pulse Rate [ Bilateral Throughout] Pulse Rate [ From Monitor] Respiratory 24 18 22 Rate Respiratory Rate [Bilateral Throughout] Blood Pressure 104/56 104/57 110/66 O2 Sat by Pulse Oximetry O2 Sat by Pulse Oximetry [ Assessment] 01/07/17 01/07/17 01/07/17 06:16 06:21 06:30 Temperature Pulse Rate 123 H 118 H Pulse Rate [ Bilateral Throughout] Pulse Rate [ From Monitor] Respiratory 21 31 H 16 Rate Respiratory Rate [Bilateral Throughout] Blood Pressure 110/66 84/40 O2 Sat by Pulse Oximetry O2 Sat by Pulse Oximetry [ Assessment] 01/07/17 01/07/17 01/07/17 06:46 06:51 07:00 Temperature Pulse Rate 117 H 117 H Pulse Rate [ Bilateral Throughout] Pulse Rate [ From Monitor] Respiratory 19 19 20 Rate Respiratory Rate [Bilateral Throughout] Blood Pressure 84/40 101/48 O2 Sat by Pulse Oximetry O2 Sat by Pulse Oximetry [ Assessment] 01/07/17 01/07/17 01/07/17 07:16 07:30 07:46 Temperature Pulse Rate 118 H 116 H 116 H Pulse Rate [ Bilateral Throughout] Pulse Rate [ From Monitor] Respiratory 16 16 19 Rate Respiratory Rate [Bilateral Throughout] Blood Pressure 101/48 92/49 101/48 O2 Sat by Pulse Oximetry O2 Sat by Pulse Oximetry [ Assessment] 01/07/17 01/07/17 01/07/17 07:49 08:00 08:16 Temperature 99.6 F Pulse Rate 116 H 113 H Pulse Rate [ Bilateral Throughout] Pulse Rate [ From Monitor] Respiratory 19 19 Rate Respiratory Rate [Bilateral Throughout] Blood Pressure 98/46 97/57 O2 Sat by Pulse 99 Oximetry O2 Sat by Pulse 99 Oximetry [ Assessment] 01/07/17 01/07/17 01/07/17 08:30 09:01 09:15 Temperature Pulse Rate 116 H Pulse Rate [ 117 H 113 H Bilateral Throughout] Pulse Rate [ From Monitor] Respiratory 21 Rate Respiratory 21 23 Rate [Bilateral Throughout] Blood Pressure 90/51 O2 Sat by Pulse Oximetry O2 Sat by Pulse Oximetry [ Assessment] 01/07/17 01/07/17 01/07/17 09:20 11:48 12:32 Temperature 99.6 F Pulse Rate 124 H Pulse Rate [ Bilateral Throughout] Pulse Rate [ From Monitor] Respiratory Rate Respiratory Rate [Bilateral Throughout] Blood Pressure 76/44 O2 Sat by Pulse 99 99 Oximetry O2 Sat by Pulse Oximetry [ Assessment] - Lab 01/03/17 05:00 01/07/17 06:00 Most recent lab results ABG pH 7.450 pH Units (7.350-7.450) 12/05/16 Unknown ABG pCO2 29.6 mm Hg 12/05/16 Unknown ABG pO2 75.2 mm Hg (80.0-90.0) L 12/05/16 Unknown ABG HCO3 20.1 mmol/L (20.0-26.0) 12/05/16 Unknown ABG O2 Saturation 96.8 % (95.0-99.0) 12/05/16 Unknown Calcium 8.7 mg/dL (8.4-10.2) 01/07/17 06:00 Phosphorus 2.40 mg/dL (2.5-4.5) L D 01/07/17 06:00 Magnesium 1.80 mg/dL (1.7-2.3) 01/07/17 06:00 Urine Creatinine 19.7 mg/dL (0.1-20.0) 11/12/16 10:18 Urine Sodium 36 mEq/L 09/16/16 19:19 Urine Total Protein 16 mg/dL (5-11.8) H 09/16/16 19:19
[2017-01-07] MEDS: NORVASC PO SCH (13:10)
[2017-01-07] MEDS: PROTONIX FEEDTUBE SCH (13:11)
[2017-01-07] MEDS: ROBINUL PO SCH ×2 (13:11→21:26)
[2017-01-07] MEDS: CORDARONE PO SCH (13:11)
[2017-01-07] MEDS ORDERED: ALBURX 25% (ALBUMIN) IV ONE (13:45)
[2017-01-07] MEDS: Vasostrict 20 UNIT in NACL 0.9% 100 ML IV SCH ×2 (15:53→22:12)
--- NOTE | 2017-01-07 16:02 | Progress Note ---
Assessment and Plan Assessment and plan: Patient is 46-year-old woman with a history of hypertension, diabetes, asthma, hyperlipidemia, chronic kidney disease and anxiety , who was brought in by family because, she couldn't get her words out, her face was also twisted, she was admitted for acute CVA and accelerated hypertension, she had a hx of poor adherence with her medications, and uncontrolled htn. Patient's SBP on admission was noted be greater than 260. TPA was started but this was discontinued after 5 minutes because her blood pressure became uncontrolled. The TPA was not initiated again because the patient was outside the TPA window. Status post cardiac arrest , 11/21/16 on Mechanical ventilation >96 hrs - Received CPR and was resuscitated. - Patient is on amiodarone. Fever - resolved - Antibiotic discontinued today per ID - s/p R thoracentesis on 11/14, 240cc of serous fluid removed, cx of fluid was negative - Stool negative for C. difficile Severe Sepsis with septic shock - Patient has episode of fever and leukocytosis Surgical wound infection/gram-negative sepsis/candidemia/peritonitis - On TPN JUANITA, ESRD - discussed with Dr Wadsworth - on HD - Cr 1.7 today Acute CVA with infarct - Neurology input appreciated - CT shows continued evolution of left MCA infarct with slight mass effect and edema, and there is no hemorrhage - PRINCE showed hyperdynamic with ef of 75%, neither clot nor septal defect seen - MRA Brain shows near complete occlusion of M2 and M3 of the left MCA - Repeat CT scan done on 09/11, shows stable findings - carotid doppler negative - Echo shows preserved systolic function but does show some left ventricular diastolic dysfunction - continue asa and statin Persistent vegetative state - This patient's needs placement at SNF - She was denied for LTACH Acute hypoxic respiratory failure requiring MV >96hrs - Status post tracheostomy, was on T piece Nosocomial acquired aspiration pneumonia/sepsis/UTI - Finished a course of antibiotics Asthma/COPD exacerbation - ON trach, mechanical ventilation >96 hrs Status Post CVA Bilateral pleural effusion, s/p right thoracentesis A. fib with RVR Diabetes type 2. Continue sliding-scale regular insulin and Accu-Cheks. Hyperlipidemia. Continue statin Nutrition - TPN Anemia requiring multiple transfusions/acute blood loss - currently stable - Check AM labs - Will transfuse if it is below 7 Sacral decubitus ulcer - Status post debridement Disposition. Very poor prognosis. Ethics consult has been placed, will await there input. The high probability of a clinically significant, sudden or life threatening deterioration of the [neurologic, CV] system(s) required my full and direct attention, intervention and personal management. The aggregate critical care time was [35] minutes. This time is in addition to time spent performing reported procedures but includes the following: [x] Data Review and interpretation [x] Patient assessment and monitoring of vital signs [x] Documentation [x] Medication orders and management History Interval history: patient seen and examined, remains unresponsive on the ventilator. No new event , Hospitalist Physical - Physical exam Narrative exam: GEN: Ill appearing, trach, staring into space, not tracking either NECK: SUPPLE, trach in place, ngt in place CVS: regular currently NORMAL S1S2 LUNGS/CHEST: NORMAL CHEST EXPANSION B, GOOD AIR ENTRY B ABD: SOFT, NTND, ostomy bags in different locations AND STILL DRAINING, GBS, NO REBOUND OR GUARDING, peg tube in place EXT/SKIN: NO SIGNIFICANT EDEMA BUT WITH UNSTAGEABLE SACRAL DECUB, wound vac inplace MSK: +spontaneous non purposeful movement NEURO: on a ventilator and unresponsive despite being off sedation PSY: Comatose, - Constitutional Vitals: Temp Pulse Resp BP Pulse Ox 99.6 F 126 H 24 99/46 98 01/07/17 11:48 01/07/17 15:07 01/07/17 15:07 01/07/17 14:00 01/07/17 14:00 General appearance: Present: no acute distress, well-nourished, obese Results - Labs CBC & Chem 7: 01/03/17 05:00 01/07/17 06:00 Labs: Laboratory Last Values WBC 11.2 K/mm3 (4.5-11.0) H 01/03/17 05:00 RBC 2.56 M/mm3 (3.65-5.03) L 01/03/17 05:00 Hgb 7.2 gm/dl (10.1-14.3) L 01/03/17 05:00 Hct 22.3 % (30.3-42.9) L 01/03/17 05:00 MCV 87 fl (79-97) 01/03/17 05:00 MCH 28 pg (28-32) 01/03/17 05:00 MCHC 32 % (30-34) 01/03/17 05:00 RDW 17.3 % (13.2-15.2) H 01/03/17 05:00 Plt Count 366 K/mm3 (140-440) 01/03/17 05:00 Lymph % (Auto) 18.5 % (13.4-35.0) 01/03/17 05:00 [place] % (Auto) 10.0 % (0.0-7.3) H 01/03/17 05:00 Eos % (Auto) 0.5 % (0.0-4.3) 01/03/17 05:00 Baso % (Auto) 0.5 % (0.0-1.8) 01/03/17 05:00 Lymph # 2.1 K/mm3 (1.2-5.4) 01/03/17 05:00 [place] # 1.1 K/mm3 (0.0-0.8) H 01/03/17 05:00 Eos # 0.1 K/mm3 (0.0-0.4) 01/03/17 05:00 Baso # 0.1 K/mm3 (0.0-0.1) 01/03/17 05:00 Add Manual Diff Complete 12/19/16 05:02 Total Counted 100 12/19/16 05:02 Seg Neutrophils % 70.5 % (40.0-70.0) H 01/03/17 05:00 Seg Neuts % (Manual) 64.0 % (40.0-70.0) 12/19/16 05:02 Band Neutrophils % 15.0 % 12/19/16 05:02 Lymphocytes % (Manual) 13.0 % (13.4-35.0) L 12/19/16 05:02 Reactive Lymphs % (Man) 0 % 12/19/16 05:02 Monocytes % (Manual) 7.0 % (0.0-7.3) 12/19/16 05:02 Eosinophils % (Manual) 0 % (0.0-4.3) 12/19/16 05:02 Basophils % (Manual) 1.0 % (0.0-1.8) 12/19/16 05:02 Metamyelocytes % 0 % 12/19/16 05:02 Myelocytes % 0 % 12/19/16 05:02 Promyelocytes % 0 % 12/19/16 05:02 Blast Cells % 0 % 12/19/16 05:02 Nucleated RBC % 1.0 % (0.0-0.9) H 12/19/16 05:02 Seg Neutrophils # 7.9 K/mm3 (1.8-7.7) H 01/03/17 05:00 Seg Neutrophils # Man 12.9 K/mm3 (1.8-7.7) H 12/19/16 05:02 Band Neutrophils # 3.0 K/mm3 12/19/16 05:02 Lymphocytes # (Manual) 2.6 K/mm3 (1.2-5.4) 12/19/16 05:02 Abs React Lymphs (Man) 0.0 K/mm3 12/19/16 05:02 Monocytes # (Manual) 1.4 K/mm3 (0.0-0.8) H 12/19/16 05:02 Eosinophils # (Manual) 0.0 K/mm3 (0.0-0.4) 12/19/16 05:02 Basophils # (Manual) 0.2 K/mm3 (0.0-0.1) H 12/19/16 05:02 Metamyelocytes # 0.0 K/mm3 12/19/16 05:02 Myelocytes # 0.0 K/mm3 12/19/16 05:02 Promyelocytes # 0.0 K/mm3 12/19/16 05:02 Blast Cells # 0.0 K/mm3 12/19/16 05:02 Pathologist Review 09/13/16 04:00 WBC Morphology Not Reportable 12/19/16 05:02 Hypersegmented Neuts Not Reportable 12/19/16 05:02 Hyposegmented Neuts Not Reportable 12/19/16 05:02 Hypogranular Neuts Not Reportable 12/19/16 05:02 Smudge Cells Not Reportable 12/19/16 05:02 Toxic Granulation Not Reportable 12/19/16 05:02 Toxic Vacuolation Not Reportable 12/19/16 05:02 Dohle Bodies Not Reportable 12/19/16 05:02 Pelger-Huet Anomaly Not Reportable 12/19/16 05:02 Jasmina Rods Not Reportable 12/19/16 05:02 Platelet Estimate Consistent w auto 12/19/16 05:02 Clumped Platelets Not Reportable 12/19/16 05:02 Plt Clumps, EDTA Not Reportable 12/19/16 05:02 Large Platelets Not Reportable 12/19/16 05:02 Giant Platelets Not Reportable 12/19/16 05:02 Platelet Satelliting Not Reportable 12/19/16 05:02 Plt Morphology Comment Not Reportable 12/19/16 05:02 RBC Morphology Not Reportable 12/19/16 05:02 Dimorphic RBCs Not Reportable 12/19/16 05:02 Polychromasia Not Reportable 12/19/16 05:02 Hypochromasia Not Reportable 12/19/16 05:02 Poikilocytosis Not Reportable 12/19/16 05:02 Anisocytosis Not Reportable 12/19/16 05:02 Microcytosis Not Reportable 12/19/16 05:02 Macrocytosis Not Reportable 12/19/16 05:02 Spherocytes Not Reportable 12/19/16 05:02 Pappenheimer Bodies Not Reportable 12/19/16 05:02 Sickle Cells Not Reportable 12/19/16 05:02 Target Cells Few 12/19/16 05:02 Tear Drop Cells Not Reportable 12/19/16 05:02 Ovalocytes Not Reportable 12/19/16 05:02 Stomatocytes Rare 12/03/16 04:00 Helmet Cells Not Reportable 12/19/16 05:02 [place] Bodies Not Reportable 12/19/16 05:02 [place] Rings Not Reportable 12/19/16 05:02 [place] Cells Not Reportable 12/19/16 05:02 Bite Cells Not Reportable 12/19/16 05:02 Crenated Cell Not Reportable 12/19/16 05:02 Elliptocytes Not Reportable 12/19/16 05:02 Acanthocytes (Spur) Not Reportable 12/19/16 05:02 Rouleaux Not Reportable 12/19/16 05:02 Hemoglobin C Crystals Not Reportable 12/19/16 05:02 Schistocytes Not Reportable 12/19/16 05:02 Malaria parasites Not Reportable 12/19/16 05:02 ESR > 140.0 mm/Hr (0-20) 09/08/16 11:48 Jun Bodies Not Reportable 12/19/16 05:02 Hem Pathologist Commnt No 12/19/16 05:02 PT 16.1 Sec. (12.2-14.9) H 12/28/16 08:30 INR 1.23 (0.87-1.13) H 12/28/16 08:30 APTT 33.0 Sec. (24.2-36.6) 10/09/16 03:45 Thrombin Time 16.8 Sec. (15.1-19.6) 09/03/16 00:10 Fibrinogen 750 mg/dl (211-480) H 09/08/16 11:48 Lupus Anticoagulant see below 09/12/16 09:59 LA PTT Baseline See scanned report 09/12/16 09:59 dRVVT Confirm Interp Positive (Negative) H 09/12/16 09:59 dRVVT Screen 50:50 See scanned report 09/12/16 09:59 dRVVT Mix Interpret See scanned report 09/12/16 09:59 Protein C Antigen 122 % (70-140) 09/08/16 15:35 Free Protein S 97 % normal (50-147) 09/08/16 15:35 Total Protein S 109 % (70-140) 09/08/16 15:35 Antithrombin III Ag 100 % (80-120) 09/08/16 15:35 Heparin Anti-Xa, Unfract Negative (Negative) 09/29/16 13:35 Factor V Activity 182 % (65-150) H 09/08/16 15:35 POC ABG pH 7.503 (7.35-7.45) H 12/19/16 09:36 ABG pH 7.450 pH Units (7.350-7.450) 12/05/16 Unknown POC ABG pCO2 30.1 (35-45) L 12/19/16 09:36 ABG pCO2 29.6 mm Hg 12/05/16 Unknown POC ABG pO2 85 (80-105) 12/19/16 09:36 ABG pO2 75.2 mm Hg (80.0-90.0) L 12/05/16 Unknown POC ABG HCO3 23.6 12/19/16 09:36 ABG HCO3 20.1 mmol/L (20.0-26.0) 12/05/16 Unknown POC ABG Total CO2 25 12/19/16 09:36 POC ABG O2 Sat 97 12/19/16 09:36 ABG O2 Saturation 96.8 % (95.0-99.0) 12/05/16 Unknown ABG O2 Content 9.9 (0.0-44) 12/05/16 Unknown POC ABG Base Excess 1 12/19/16 09:36 ABG Base Excess -3.4 mmol/L (-2.0-3.0) L 12/05/16 Unknown ABG Hemoglobin 7.4 gm/dl (12.0-16.0) L 12/05/16 Unknown ABG Carboxyhemoglobin 1.8 % (0.0-5.0) 12/05/16 Unknown ABG Methemoglobin 0.6 % (0.0-1.5) 12/05/16 Unknown Oxyhemoglobin 94.5 % (95.0-99.0) L 12/05/16 Unknown FiO2 28 % 12/19/16 09:36 Sodium 141 mmol/L (137-145) 01/07/17 06:00 Potassium 3.7 mmol/L (3.6-5.0) 01/07/17 06:00 Chloride 102.7 mmol/L (98-107) 01/07/17 06:00 Carbon Dioxide 25 mmol/L (22-30) 01/07/17 06:00 Anion Gap 17 mmol/L 01/07/17 06:00 BUN 42 mg/dL (7-17) H 01/07/17 06:00 Creatinine 1.0 mg/dL (0.7-1.2) 01/07/17 06:00 Estimated GFR > 60 ml/min 01/07/17 06:00 BUN/Creatinine Ratio 42 % 01/07/17 06:00 Glucose 175 mg/dL (65-100) H 01/07/17 06:00 POC Glucose 163 (70-105) H 01/07/17 11:39 Osmolality 351 Mosm/kg 09/16/16 11:47 Lactic Acid 4.50 mmol/L (0.7-2.0) H* 09/28/16 07:25 Calcium 8.7 mg/dL (8.4-10.2) 01/07/17 06:00 Phosphorus 2.40 mg/dL (2.5-4.5) L D 01/07/17 06:00 Magnesium 1.80 mg/dL (1.7-2.3) 01/07/17 06:00 Total Bilirubin 0.50 mg/dL (0.1-1.2) 01/01/17 05:00 Direct Bilirubin 0.3 mg/dL (0-0.2) H 10/10/16 05:00 Indirect Bilirubin 0.1 mg/dL 10/10/16 05:00 AST 35 units/L (5-40) 01/01/17 05:00 ALT 51 units/L (7-56) 01/01/17 05:00 Alkaline Phosphatase 536 units/L (35-129) H 01/01/17 05:00 Ammonia 27.0 umol/L (25-60) 09/07/16 08:37 Lactate Dehydrogenase 196 units/L (91-180) H 11/11/16 06:59 Total Creatine Kinase 121 units/L (30-135) 09/29/16 20:12 CK-MB (CK-2) < 1.0 ng/mL (0.0-4.0) 09/29/16 20:12 CK-MB (CK-2) Rel Index 0.8 (0-4) 09/29/16 20:12 Troponin T 0.204 ng/mL (0.00-0.029) H* 09/29/16 20:12 C-Reactive Protein 19.30 mg/dL (0.00-1.30) H 12/05/16 05:00 Total Protein 6.3 g/dL (6.3-8.2) 01/01/17 05:00 Albumin 1.5 g/dL (3.9-5) L 01/01/17 05:00 Albumin/Globulin Ratio 0.3 % 01/01/17 05:00 Prealbumin 0.110 g/L (0.200-0.400) L 12/29/16 05:15 Triglycerides 137 mg/dL (2-149) 09/29/16 20:12 Cholesterol 31 mg/dL (50-199) L 09/29/16 20:12 LDL Cholesterol Direct 4 mg/dL (50-130) L 09/29/16 20:12 HDL Cholesterol 3 mg/dL (40-59) L 09/29/16 20:12 Cholesterol/HDL Ratio 10.33 % 09/29/16 20:12 Angiotensin Convert Enz See scanned report 09/08/16 11:48 Renin 0.99 ng/mL/h (0.25-5.82) 10/07/16 10:56 Aldosterone <1 ng/dL () 10/07/16 10:56 Aldosterone/Renin Dir see below 10/07/16 10:56 Serotonin Release Assay See scanned report 09/29/16 13:35 TSH 1.010 mlU/mL (0.270-4.200) 09/07/16 08:37 HCG, Qual Negative (Negative) 09/03/16 00:10 Urine Color Yellow (Yellow) 11/05/16 13:09 Urine Turbidity Clear (Clear) 11/05/16 13:09 Urine pH 9.0 (5.0-7.0) H 11/05/16 13:09 Ur Specific [place] 1.011 (1.003-1.030) 11/05/16 13:09 Urine Protein 100 mg/dl mg/dL (Negative) 11/05/16 13:09 Urine Glucose (UA) Neg mg/dL (Negative) 11/05/16 13:09 Urine Ketones Neg mg/dL (Negative) 11/05/16 13:09 Urine Blood Neg (Negative) 11/05/16 13:09 Urine Nitrite Neg (Negative) 11/05/16 13:09 Urine Bilirubin Neg (Negative) 11/05/16 13:09 Urine Urobilinogen < 2.0 mg/dL (<2.0) 11/05/16 13:09 Ur Leukocyte Esterase Neg (Negative) 11/05/16 13:09 Urine WBC (Auto) 4.0 /HPF (0.0-6.0) 11/05/16 13:09 Urine RBC (Auto) 1.0 /HPF (0.0-6.0) 11/05/16 13:09 U Epithel Cells (Auto) 1.0 /HPF (0-13.0) 10/07/16 18:30 Urine Bacteria (Auto) 4+ /HPF (Negative) 11/05/16 13:09 Urine WBC Clumps 2+ /HPF 09/07/16 02:47 Hyaline Casts 4 /LPF 09/07/16 02:47 Urine Mucus Few /HPF 10/07/16 18:30 Urine Yeast (Budding) 3+ /HPF 10/07/16 18:30 Urine Eosinophils None seen (None Seen) 09/07/16 16:00 Urine Total Volume 950 11/12/16 10:18 Urine Creatinine 19.7 mg/dL (0.1-20.0) 11/12/16 10:18 Height (in) 65.0 inches 11/12/16 10:18 Weight (lb) 181.0 lbs 11/12/16 10:18 Creatinine Clearance 5 11/12/16 10:18 Urine Sodium 36 mEq/L 09/16/16 19:19 Urine Total Protein 16 mg/dL (5-11.8) H 09/16/16 19:19 Fluid Total Protein < 3.0 (15.0-45.0) L 11/10/16 14:20 Fluid LDH 123 11/10/16 14:20 Vancomycin Trough 2.3 ug/mL (5.0-20.0) L 09/21/16 13:00 Random Vancomycin 16.5 ug/mL (0-40.0) 11/28/16 09:45 Urine Opiates Screen Presumptive negative 09/03/16 15:11 Urine Methadone Screen Presumptive positive 09/03/16 15:11 Ur Barbiturates Screen Presumptive positive 09/03/16 15:11 Ur Phencyclidine Scrn Presumptive negative 09/03/16 15:11 Ur Amphetamines Screen Presumptive negative 09/03/16 15:11 U Benzodiazepines Scrn Presumptive negative 09/03/16 15:11 Urine Cocaine Screen Presumptive negative 09/03/16 15:11 U Marijuana (THC) Screen Presumptive positive 09/03/16 15:11 Drugs of Abuse Note Disclamer 09/03/16 15:11 Rheumatoid Factor 24 IU/ml (0-13) H 09/08/16 11:48 SAHIL Screen Negative (Negative) 09/07/16 09:20 Proteinase 3 (PR3) Ab <1.0 AI (<1.0) 09/07/16 09:20 Myeloperoxidase Ab <1.0 AI (<1.0) 09/07/16 09:20 Sjogren's Antibody <1.0 AI (<1.0) 09/08/16 15:35 Scl-70 Scleroderma Ab <1.0 AI (<1.0) 09/08/16 15:35 Centromere B Antibody <1.0 AI (<1.0) 09/08/16 12:02 Heparin-induced Plt Ab Negative (Negative) 09/29/16 13:35 UF Heparin High Dose 11 % Release 09/29/16 13:35 SUDHIR UFH Low Dose 0.1 6 % Release 09/29/16 13:35 SUDHIR UFH Low Dose 0.5 8 % Release 09/29/16 13:35 Cardiolipid IgG Ab <14 GPL (<=14) 09/12/16 09:59 Cardiolipid IgA Ab <11 APL (<=11) 09/12/16 09:59 Cardiolipid IgM Ab <12 MPL (<=12) 09/12/16 09:59 Complement C3 148 mg/dL (90-180) 09/07/16 09:20 Complement C4 58 mg/dL (16-47) H 09/07/16 09:20 RPR Nonreactive (Nonreactive) 09/08/16 11:48 Hepatitis A IgM Ab Non-reactive (NonReactive) 09/24/16 14:40 Hep Bs Antigen Non-reactive (Negative) 09/24/16 14:40 Hep B Core IgM Ab Non-reactive (NonReactive) 09/24/16 14:40 Hepatitis C Antibody Non-reactive (NonReactive) 09/24/16 14:40 HIV 1&2 Antibody Rapid Non react (Non React) 09/08/16 11:48 HIV P24 Antigen Non react (Non React) 09/08/16 11:48 Miscellaneous Test Flexitest 1 H 11/05/16 13:25 Blood Type A POSITIVE 12/29/16 14:00 Antibody Screen Negative 12/29/16 14:00 DELORIS Antibody Screen Negative 11/24/16 11:20 Crossmatch See Detail 12/29/16 14:00
[2017-01-07] MEDS: DAKIN'S HALF STRENGTH TP SCH ×2 (18:13→22:00)
[2017-01-07] MEDS: DURAGESIC TD SCH (18:34)
[2017-01-07] MEDS: TRANSDERM-SCOP TD SCH (18:38)
[2017-01-07] MEDS ORDERED: TPN ADULT IV SCH (20:00)
[2017-01-08] MEDS: DUONEB *Not for PRN Use IH SCH ×4 (01:51→19:50)
[2017-01-08] MEDS: REGLAN IV SCH ×3 (05:46→22:00)
[2017-01-08] MEDS: CORDARONE PO SCH ×3 (05:49→22:27)
[2017-01-08] MEDS: LOPRESSOR PO SCH ×5 (06:00→17:55)
[2017-01-08] MEDS: HumuLIN R SUB-Q SCH ×5 (06:00→23:32)
[2017-01-08] MEDS: APRESOLINE PO SCH ×3 (06:00→22:25)
[2017-01-08 06:03] LABS: Hematocrit 20.4 % (30.3-42.9); Hemoglobin 6.1 gm/dl (10.1-14.3); Red Blood Count 2.27 M/mm3 (3.65-5.03)
[2017-01-08 06:04] LABS: Mean Platelet Volume 8.9 fl (6-12); Red Cell Distribution Width 17.8 % (13.2-15.2)
[2017-01-08 06:11] LABS: Calcium 9.8 mg/dL (8.4-10.2)
[2017-01-08] MEDS ORDERED: NACL 0.9% 500 ML 500 ML IV ONE (08:35)
[2017-01-08] MEDS: ROBINUL PO SCH ×2 (10:47→22:00)
[2017-01-08] MEDS: HEPARIN SUB-Q SCH ×2 (10:47→22:00)
[2017-01-08] MEDS: PROTONIX FEEDTUBE SCH (10:47)
[2017-01-08] MEDS: NORVASC PO SCH (11:01)
[2017-01-08] MEDS: DAKIN'S HALF STRENGTH TP SCH ×2 (11:01→22:00)
--- NOTE | 2017-01-08 12:02 | Progress Note ---
Assessment and Plan Assessment * Oliguric acute kidney injury secondary to ATN on CKD - baseline SCr 1.7mg/dL --24h urine CrCl 5ml/min Sep 24 * Acute CVA - left MCA with midline shift * Atrial fibrillation w/ RVR * Enteric fistula * Acute hypoxic respiratory failure * Sacral decubitus ulcer s/p debridement, wound vac in place * s/p Cardiac arrest * Hx of GI bleed * Left renal artery stenosis * Anemia * Hx of hypertension * s/p Candidemia * metabolic acidosis Plan: * Continue HD MWF * UF as tolerated * add bicarb gtt today * Adjust K bath with dialysis * Transfuse pRBC per primary team. Epogen 20k TIW * Dose medications for renal function * Avoid potential nephrotoxins * Rate control per cardiology * Vent management per pulm/CCM * Pressors prn for MAP>65 Subjective Date of service: 01/08/17 Principal diagnosis: Acute resp failure on MVS; S/P Acute CVA; Acute Encephalopathy; JUANITA Interval history: new events from last pm noted Objective - Exam Narrative Exam: Gen. appearance: Patient lying in bed, no apparent distress, 4. restraints HEENT: Normocephalic, atraumatic, pupils equally round and reactive to light, extraocular movement intact, and no sclericterus,. No JVD or thyromegaly or nodule,neck supple, no carotid bruit ,mucous membranes moist, unable to examine oral cavity Heart: S1, S2, regular rate and rhythm Lungs: Clear to auscultation bilaterally, breathing comfortable Abdomen: Positive bowel sounds, nontender, nondistended, no organomegaly Extremity: No edema, cyanosis, clubbing Skin: No rash, nodules, warm, dry Neuro: Difficult to assess, facial droop, moves all 4 extremities - Vital Signs Vital signs: Vital Signs - 12hr 01/08/17 01/08/17 01/08/17 00:15 00:30 00:45 Temperature Pulse Rate 112 H 112 H 114 H Pulse Rate [ Bilateral Throughout] Respiratory 21 26 H 23 Rate Respiratory Rate [Bilateral Throughout] Blood Pressure 95/53 100/62 100/62 O2 Sat by Pulse 99 99 100 Oximetry 01/08/17 01/08/17 01/08/17 01:00 01:15 01:30 Temperature Pulse Rate 110 H 112 H 110 H Pulse Rate [ Bilateral Throughout] Respiratory 28 H 24 22 Rate Respiratory Rate [Bilateral Throughout] Blood Pressure 96/62 96/62 99/60 O2 Sat by Pulse 99 100 100 Oximetry 01/08/17 01/08/17 01/08/17 01:45 01:51 02:00 Temperature Pulse Rate 113 H 110 H Pulse Rate [ 113 H Bilateral Throughout] Respiratory 29 H 26 H Rate Respiratory 28 H Rate [Bilateral Throughout] Blood Pressure 99/60 94/53 O2 Sat by Pulse 99 98 Oximetry 01/08/17 01/08/17 01/08/17 02:09 02:15 02:30 Temperature Pulse Rate 112 H 112 H Pulse Rate [ 115 H Bilateral Throughout] Respiratory 25 H 24 Rate Respiratory 28 H Rate [Bilateral Throughout] Blood Pressure 94/53 98/62 O2 Sat by Pulse 96 97 Oximetry 01/08/17 01/08/17 01/08/17 02:45 03:00 03:17 Temperature Pulse Rate 113 H 116 H 127 H Pulse Rate [ Bilateral Throughout] Respiratory 26 H 27 H 11 L Rate Respiratory Rate [Bilateral Throughout] Blood Pressure 98/62 110/60 110/60 O2 Sat by Pulse 92 Oximetry 01/08/17 01/08/17 01/08/17 03:30 03:45 03:48 Temperature 98.8 F Pulse Rate 121 H 114 H Pulse Rate [ Bilateral Throughout] Respiratory 43 H 43 H Rate Respiratory Rate [Bilateral Throughout] Blood Pressure 104/51 104/51 O2 Sat by Pulse Oximetry 01/08/17 01/08/17 01/08/17 04:00 04:10 04:15 Temperature Pulse Rate 113 H 112 H 111 H Pulse Rate [ Bilateral Throughout] Respiratory 32 H 37 H Rate Respiratory Rate [Bilateral Throughout] Blood Pressure 95/59 95/59 95/59 O2 Sat by Pulse 99 100 Oximetry 01/08/17 01/08/17 01/08/17 04:30 04:45 05:00 Temperature Pulse Rate 114 H 112 H 112 H Pulse Rate [ Bilateral Throughout] Respiratory 50 H 29 H 34 H Rate Respiratory Rate [Bilateral Throughout] Blood Pressure 98/63 98/63 93/49 O2 Sat by Pulse Oximetry 01/08/17 01/08/17 01/08/17 05:15 05:30 05:45 Temperature Pulse Rate 110 H 107 H 110 H Pulse Rate [ Bilateral Throughout] Respiratory 46 H 40 H 47 H Rate Respiratory Rate [Bilateral Throughout] Blood Pressure 93/49 88/51 88/51 O2 Sat by Pulse Oximetry 01/08/17 01/08/17 01/08/17 06:00 06:15 06:30 Temperature 106 F H Pulse Rate 110 H 107 H 107 H Pulse Rate [ Bilateral Throughout] Respiratory 41 H 37 H 24 Rate Respiratory Rate [Bilateral Throughout] Blood Pressure 99/57 99/57 88/53 O2 Sat by Pulse Oximetry 01/08/17 01/08/17 01/08/17 06:45 07:00 07:15 Temperature Pulse Rate 103 H 107 H 106 H Pulse Rate [ Bilateral Throughout] Respiratory 37 H 36 H 38 H Rate Respiratory Rate [Bilateral Throughout] Blood Pressure 88/53 94/48 94/48 O2 Sat by Pulse Oximetry 01/08/17 01/08/17 01/08/17 07:30 07:45 07:50 Temperature 98.3 F Pulse Rate 106 H 108 H Pulse Rate [ Bilateral Throughout] Respiratory 43 H 34 H Rate Respiratory Rate [Bilateral Throughout] Blood Pressure 96/49 96/49 O2 Sat by Pulse Oximetry 01/08/17 01/08/17 01/08/17 08:00 08:15 08:30 Temperature Pulse Rate 115 H 111 H 111 H Pulse Rate [ Bilateral Throughout] Respiratory 41 H 36 H 41 H Rate Respiratory Rate [Bilateral Throughout] Blood Pressure 107/56 107/56 116/59 O2 Sat by Pulse Oximetry 01/08/17 01/08/17 01/08/17 08:45 08:50 08:53 Temperature Pulse Rate 110 H 110 H Pulse Rate [ 110 H Bilateral Throughout] Respiratory 45 H Rate Respiratory 29 H Rate [Bilateral Throughout] Blood Pressure 107/56 116/59 O2 Sat by Pulse 99 Oximetry 01/08/17 01/08/17 01/08/17 09:00 09:15 09:30 Temperature Pulse Rate 110 H 109 H 116 H Pulse Rate [ Bilateral Throughout] Respiratory 19 24 18 Rate Respiratory Rate [Bilateral Throughout] Blood Pressure 113/65 113/65 144/76 O2 Sat by Pulse 97 Oximetry 01/08/17 01/08/17 01/08/17 09:45 10:00 10:15 Temperature Pulse Rate 116 H 116 H 113 H Pulse Rate [ Bilateral Throughout] Respiratory 48 H 41 H 42 H Rate Respiratory Rate [Bilateral Throughout] Blood Pressure 113/65 132/75 132/75 O2 Sat by Pulse 98 98 98 Oximetry 11/01/08/17 01/08/17 10:30 10:45 11:00 Temperature Pulse Rate 115 H 120 H 115 H Pulse Rate [ Bilateral Throughout] Respiratory 48 H 39 H 40 H Rate Respiratory Rate [Bilateral Throughout] Blood Pressure 122/73 122/73 118/71 O2 Sat by Pulse 98 97 98 Oximetry 01/08/17 01/08/17 01/08/17 11:15 11:30 11:52 Temperature 98.2 F Pulse Rate 115 H 118 H Pulse Rate [ Bilateral Throughout] Respiratory 38 H 38 H Rate Respiratory Rate [Bilateral Throughout] Blood Pressure 122/73 131/68 O2 Sat by Pulse 98 98 Oximetry - Lab 01/08/17 05:00 01/08/17 05:00 Most recent lab results ABG pH 7.450 pH Units (7.350-7.450) 12/05/16 Unknown ABG pCO2 29.6 mm Hg 12/05/16 Unknown ABG pO2 75.2 mm Hg (80.0-90.0) L 12/05/16 Unknown ABG HCO3 20.1 mmol/L (20.0-26.0) 12/05/16 Unknown ABG O2 Saturation 96.8 % (95.0-99.0) 12/05/16 Unknown Calcium 9.8 mg/dL (8.4-10.2) 01/08/17 05:00 Phosphorus 2.90 mg/dL (2.5-4.5) D 01/08/17 05:00 Magnesium 1.90 mg/dL (1.7-2.3) 01/08/17 05:00 Urine Creatinine 19.7 mg/dL (0.1-20.0) 11/12/16 10:18 Urine Sodium 36 mEq/L 09/16/16 19:19 Urine Total Protein 16 mg/dL (5-11.8) H 09/16/16 19:19
[2017-01-08] MEDS: MERREM/NS 500 MG/50 ML 500 MG/50 ML BAG IV SCH ×2 (13:22→20:26)
--- NOTE | 2017-01-08 14:26 | Progress Note ---
Assessment and Plan Assessment and plan: Patient is 46-year-old woman with a history of hypertension, diabetes, asthma, hyperlipidemia, chronic kidney disease and anxiety , who was brought in by family because, she couldn't get her words out, her face was also twisted, she was admitted for acute CVA and accelerated hypertension, she had a hx of poor adherence with her medications, and uncontrolled htn. Patient's SBP on admission was noted be greater than 260. TPA was started but this was discontinued after 5 minutes because her blood pressure became uncontrolled. The TPA was not initiated again because the patient was outside the TPA window. Ethics consult placed Patient now on recurrent anemia requiring 2 units packed red blood cell Severe Leukocytosis. Will start meropenem and also consult ID. on the patient has no fever she is also with lactic acidosis of 9 which will be repeated. If leukocytosis is not improving should repeat CT abdomen and pelvis to rule out ischemic bowel Status post cardiac arrest , 11/21/16 on Mechanical ventilation >96 hrs - Received CPR and was resuscitated. - Patient is on amiodarone. Fever - resolved - Antibiotic discontinued today per ID - s/p R thoracentesis on 11/14, 240cc of serous fluid removed, cx of fluid was negative - Stool negative for C. difficile Severe Sepsis with septic shock - Patient has episode of fever and leukocytosis Surgical wound infection/gram-negative sepsis/candidemia/peritonitis - On TPN JUANITA, ESRD - discussed with Dr Wadsworth - on HD - Cr 1.7 today Acute CVA with infarct - Neurology input appreciated - CT shows continued evolution of left MCA infarct with slight mass effect and edema, and there is no hemorrhage - PRINCE showed hyperdynamic with ef of 75%, neither clot nor septal defect seen - MRA Brain shows near complete occlusion of M2 and M3 of the left MCA - Repeat CT scan done on 09/11, shows stable findings - carotid doppler negative - Echo shows preserved systolic function but does show some left ventricular diastolic dysfunction - continue asa and statin Persistent vegetative state - This patient's needs placement at SNF - She was denied for LTACH Acute hypoxic respiratory failure requiring MV >96hrs - Status post tracheostomy, was on T piece Nosocomial acquired aspiration pneumonia/sepsis/UTI - Finished a course of antibiotics Asthma/COPD exacerbation - ON trach, mechanical ventilation >96 hrs Status Post CVA Bilateral pleural effusion, s/p right thoracentesis A. fib with RVR Diabetes type 2. Continue sliding-scale regular insulin and Accu-Cheks. Hyperlipidemia. Continue statin Nutrition - TPN Anemia requiring multiple transfusions/acute blood loss - currently stable - Check AM labs - Will transfuse if it is below 7 Sacral decubitus ulcer - Status post debridement Disposition. Very poor prognosis. Ethics consult has been placed, will await there input. The high probability of a clinically significant, sudden or life threatening deterioration of the [neurologic, CV] system(s) required my full and direct attention, intervention and personal management. The aggregate critical care time was [35] minutes. This time is in addition to time spent performing reported procedures but includes the following: [x] Data Review and interpretation [x] Patient assessment and monitoring of vital signs [x] Documentation [x] Medication orders and management History Interval history: patient seen and examined, remains unresponsive on the ventilator. No new event , Hospitalist Physical - Physical exam Narrative exam: GEN: Ill appearing, trach, staring into space, not tracking either NECK: SUPPLE, trach in place, ngt in place CVS: regular currently NORMAL S1S2 LUNGS/CHEST: NORMAL CHEST EXPANSION B, GOOD AIR ENTRY B ABD: SOFT, NTND, ostomy bags in different locations AND STILL DRAINING, GBS, NO REBOUND OR GUARDING, peg tube in place EXT/SKIN: NO SIGNIFICANT EDEMA BUT WITH UNSTAGEABLE SACRAL DECUB, wound vac inplace MSK: +spontaneous non purposeful movement NEURO: on a ventilator and unresponsive despite being off sedation PSY: Comatose, - Constitutional Vitals: Temp Pulse Resp BP Pulse Ox 98.2 F 109 H 20 120/67 100 01/08/17 11:52 01/08/17 13:53 01/08/17 13:53 01/08/17 12:00 01/08/17 12:00 General appearance: Present: no acute distress, well-nourished, obese Results - Labs CBC & Chem 7: 01/08/17 05:00 01/08/17 05:00 Labs: Laboratory Last Values WBC 27.4 K/mm3 (4.5-11.0) H 01/08/17 05:00 RBC 2.27 M/mm3 (3.65-5.03) L 01/08/17 05:00 Hgb 6.1 gm/dl (10.1-14.3) L 01/08/17 05:00 Hct 20.4 % (30.3-42.9) L 01/08/17 05:00 MCV 90 fl (79-97) 01/08/17 05:00 MCH 27 pg (28-32) L 01/08/17 05:00 MCHC 30 % (30-34) 01/08/17 05:00 RDW 17.8 % (13.2-15.2) H 01/08/17 05:00 Plt Count 374 K/mm3 (140-440) 01/08/17 05:00 Lymph % (Auto) 18.5 % (13.4-35.0) 01/03/17 05:00 Bath % (Auto) 10.0 % (0.0-7.3) H 01/03/17 05:00 Eos % (Auto) 0.5 % (0.0-4.3) 01/03/17 05:00 Baso % (Auto) 0.5 % (0.0-1.8) 01/03/17 05:00 Lymph # 2.1 K/mm3 (1.2-5.4) 01/03/17 05:00 Bath # 1.1 K/mm3 (0.0-0.8) H 01/03/17 05:00 Eos # 0.1 K/mm3 (0.0-0.4) 01/03/17 05:00 Baso # 0.1 K/mm3 (0.0-0.1) 01/03/17 05:00 Add Manual Diff Complete 12/19/16 05:02 Total Counted 100 12/19/16 05:02 Seg Neutrophils % 70.5 % (40.0-70.0) H 01/03/17 05:00 Seg Neuts % (Manual) 64.0 % (40.0-70.0) 12/19/16 05:02 Band Neutrophils % 15.0 % 12/19/16 05:02 Lymphocytes % (Manual) 13.0 % (13.4-35.0) L 12/19/16 05:02 Reactive Lymphs % (Man) 0 % 12/19/16 05:02 Monocytes % (Manual) 7.0 % (0.0-7.3) 12/19/16 05:02 Eosinophils % (Manual) 0 % (0.0-4.3) 12/19/16 05:02 Basophils % (Manual) 1.0 % (0.0-1.8) 12/19/16 05:02 Metamyelocytes % 0 % 12/19/16 05:02 Myelocytes % 0 % 12/19/16 05:02 Promyelocytes % 0 % 12/19/16 05:02 Blast Cells % 0 % 12/19/16 05:02 Nucleated RBC % 1.0 % (0.0-0.9) H 12/19/16 05:02 Seg Neutrophils # 7.9 K/mm3 (1.8-7.7) H 01/03/17 05:00 Seg Neutrophils # Man 12.9 K/mm3 (1.8-7.7) H 12/19/16 05:02 Band Neutrophils # 3.0 K/mm3 12/19/16 05:02 Lymphocytes # (Manual) 2.6 K/mm3 (1.2-5.4) 12/19/16 05:02 Abs React Lymphs (Man) 0.0 K/mm3 12/19/16 05:02 Monocytes # (Manual) 1.4 K/mm3 (0.0-0.8) H 12/19/16 05:02 Eosinophils # (Manual) 0.0 K/mm3 (0.0-0.4) 12/19/16 05:02 Basophils # (Manual) 0.2 K/mm3 (0.0-0.1) H 12/19/16 05:02 Metamyelocytes # 0.0 K/mm3 12/19/16 05:02 Myelocytes # 0.0 K/mm3 12/19/16 05:02 Promyelocytes # 0.0 K/mm3 12/19/16 05:02 Blast Cells # 0.0 K/mm3 12/19/16 05:02 Pathologist Review 09/13/16 04:00 WBC Morphology Not Reportable 12/19/16 05:02 Hypersegmented Neuts Not Reportable 12/19/16 05:02 Hyposegmented Neuts Not Reportable 12/19/16 05:02 Hypogranular Neuts Not Reportable 12/19/16 05:02 Smudge Cells Not Reportable 12/19/16 05:02 Toxic Granulation Not Reportable 12/19/16 05:02 Toxic Vacuolation Not Reportable 12/19/16 05:02 Dohle Bodies Not Reportable 12/19/16 05:02 Pelger-Huet Anomaly Not Reportable 12/19/16 05:02 Jasmina Rods Not Reportable 12/19/16 05:02 Platelet Estimate Consistent w auto 12/19/16 05:02 Clumped Platelets Not Reportable 12/19/16 05:02 Plt Clumps, EDTA Not Reportable 12/19/16 05:02 Large Platelets Not Reportable 12/19/16 05:02 Giant Platelets Not Reportable 12/19/16 05:02 Platelet Satelliting Not Reportable 12/19/16 05:02 Plt Morphology Comment Not Reportable 12/19/16 05:02 RBC Morphology Not Reportable 12/19/16 05:02 Dimorphic RBCs Not Reportable 12/19/16 05:02 Polychromasia Not Reportable 12/19/16 05:02 Hypochromasia Not Reportable 12/19/16 05:02 Poikilocytosis Not Reportable 12/19/16 05:02 Anisocytosis Not Reportable 12/19/16 05:02 Microcytosis Not Reportable 12/19/16 05:02 Macrocytosis Not Reportable 12/19/16 05:02 Spherocytes Not Reportable 12/19/16 05:02 Pappenheimer Bodies Not Reportable 12/19/16 05:02 Sickle Cells Not Reportable 12/19/16 05:02 Target Cells Few 12/19/16 05:02 Tear Drop Cells Not Reportable 12/19/16 05:02 Ovalocytes Not Reportable 12/19/16 05:02 Stomatocytes Rare 12/03/16 04:00 Helmet Cells Not Reportable 12/19/16 05:02 [place] Bodies Not Reportable 12/19/16 05:02 [place] Rings Not Reportable 12/19/16 05:02 [place] Cells Not Reportable 12/19/16 05:02 Bite Cells Not Reportable 12/19/16 05:02 Crenated Cell Not Reportable 12/19/16 05:02 Elliptocytes Not Reportable 12/19/16 05:02 Acanthocytes (Spur) Not Reportable 12/19/16 05:02 Rouleaux Not Reportable 12/19/16 05:02 Hemoglobin C Crystals Not Reportable 12/19/16 05:02 Schistocytes Not Reportable 12/19/16 05:02 Malaria parasites Not Reportable 12/19/16 05:02 ESR > 140.0 mm/Hr (0-20) 09/08/16 11:48 Jun Bodies Not Reportable 12/19/16 05:02 Hem Pathologist Commnt No 12/19/16 05:02 PT 16.1 Sec. (12.2-14.9) H 12/28/16 08:30 INR 1.23 (0.87-1.13) H 12/28/16 08:30 APTT 33.0 Sec. (24.2-36.6) 10/09/16 03:45 Thrombin Time 16.8 Sec. (15.1-19.6) 09/03/16 00:10 Fibrinogen 750 mg/dl (211-480) H 09/08/16 11:48 Lupus Anticoagulant see below 09/12/16 09:59 LA PTT Baseline See scanned report 09/12/16 09:59 dRVVT Confirm Interp Positive (Negative) H 09/12/16 09:59 dRVVT Screen 50:50 See scanned report 09/12/16 09:59 dRVVT Mix Interpret See scanned report 09/12/16 09:59 Protein C Antigen 122 % (70-140) 09/08/16 15:35 Free Protein S 97 % normal (50-147) 09/08/16 15:35 Total Protein S 109 % (70-140) 09/08/16 15:35 Antithrombin III Ag 100 % (80-120) 09/08/16 15:35 Heparin Anti-Xa, Unfract Negative (Negative) 09/29/16 13:35 Factor V Activity 182 % (65-150) H 09/08/16 15:35 POC ABG pH 7.503 (7.35-7.45) H 12/19/16 09:36 ABG pH 7.450 pH Units (7.350-7.450) 12/05/16 Unknown POC ABG pCO2 30.1 (35-45) L 12/19/16 09:36 ABG pCO2 29.6 mm Hg 12/05/16 Unknown POC ABG pO2 85 (80-105) 12/19/16 09:36 ABG pO2 75.2 mm Hg (80.0-90.0) L 12/05/16 Unknown POC ABG HCO3 23.6 12/19/16 09:36 ABG HCO3 20.1 mmol/L (20.0-26.0) 12/05/16 Unknown POC ABG Total CO2 25 12/19/16 09:36 POC ABG O2 Sat 97 12/19/16 09:36 ABG O2 Saturation 96.8 % (95.0-99.0) 12/05/16 Unknown ABG O2 Content 9.9 (0.0-44) 12/05/16 Unknown POC ABG Base Excess 1 12/19/16 09:36 ABG Base Excess -3.4 mmol/L (-2.0-3.0) L 12/05/16 Unknown ABG Hemoglobin 7.4 gm/dl (12.0-16.0) L 12/05/16 Unknown ABG Carboxyhemoglobin 1.8 % (0.0-5.0) 12/05/16 Unknown ABG Methemoglobin 0.6 % (0.0-1.5) 12/05/16 Unknown Oxyhemoglobin 94.5 % (95.0-99.0) L 12/05/16 Unknown FiO2 28 % 12/19/16 09:36 Sodium 145 mmol/L (137-145) 01/08/17 05:00 Potassium 4.3 mmol/L (3.6-5.0) 01/08/17 05:00 Chloride 103.5 mmol/L (98-107) 01/08/17 05:00 Carbon Dioxide 16 mmol/L (22-30) L D 01/08/17 05:00 Anion Gap 30 mmol/L 01/08/17 05:00 BUN 62 mg/dL (7-17) H 01/08/17 05:00 Creatinine 1.6 mg/dL (0.7-1.2) H D 01/08/17 05:00 Estimated GFR 42 ml/min 01/08/17 05:00 BUN/Creatinine Ratio 39 % 01/08/17 05:00 Glucose 103 mg/dL (65-100) H 01/08/17 05:00 POC Glucose 157 (70-105) H 01/08/17 11:33 Osmolality 351 Mosm/kg 09/16/16 11:47 Lactic Acid 9.70 mmol/L (0.7-2.0) H* 01/08/17 10:37 Calcium 9.8 mg/dL (8.4-10.2) 01/08/17 05:00 Phosphorus 2.90 mg/dL (2.5-4.5) D 01/08/17 05:00 Magnesium 1.90 mg/dL (1.7-2.3) 01/08/17 05:00 Total Bilirubin 0.50 mg/dL (0.1-1.2) 01/01/17 05:00 Direct Bilirubin 0.3 mg/dL (0-0.2) H 10/10/16 05:00 Indirect Bilirubin 0.1 mg/dL 10/10/16 05:00 AST 35 units/L (5-40) 01/01/17 05:00 ALT 51 units/L (7-56) 01/01/17 05:00 Alkaline Phosphatase 536 units/L (35-129) H 01/01/17 05:00 Ammonia 27.0 umol/L (25-60) 09/07/16 08:37 Lactate Dehydrogenase 196 units/L (91-180) H 11/11/16 06:59 Total Creatine Kinase 121 units/L (30-135) 09/29/16 20:12 CK-MB (CK-2) < 1.0 ng/mL (0.0-4.0) 09/29/16 20:12 CK-MB (CK-2) Rel Index 0.8 (0-4) 09/29/16 20:12 Troponin T 0.204 ng/mL (0.00-0.029) H* 09/29/16 20:12 C-Reactive Protein 24.40 mg/dL (0.00-1.30) H 01/08/17 10:37 Total Protein 6.3 g/dL (6.3-8.2) 01/01/17 05:00 Albumin 1.5 g/dL (3.9-5) L 01/01/17 05:00 Albumin/Globulin Ratio 0.3 % 01/01/17 05:00 Prealbumin 0.110 g/L (0.200-0.400) L 12/29/16 05:15 Triglycerides 137 mg/dL (2-149) 09/29/16 20:12 Cholesterol 31 mg/dL (50-199) L 09/29/16 20:12 LDL Cholesterol Direct 4 mg/dL (50-130) L 09/29/16 20:12 HDL Cholesterol 3 mg/dL (40-59) L 09/29/16 20:12 Cholesterol/HDL Ratio 10.33 % 09/29/16 20:12 Angiotensin Convert Enz See scanned report 09/08/16 11:48 Renin 0.99 ng/mL/h (0.25-5.82) 10/07/16 10:56 Aldosterone <1 ng/dL () 10/07/16 10:56 Aldosterone/Renin Dir see below 10/07/16 10:56 Serotonin Release Assay See scanned report 09/29/16 13:35 TSH 1.010 mlU/mL (0.270-4.200) 09/07/16 08:37 HCG, Qual Negative (Negative) 09/03/16 00:10 Urine Color Yellow (Yellow) 11/05/16 13:09 Urine Turbidity Clear (Clear) 11/05/16 13:09 Urine pH 9.0 (5.0-7.0) H 11/05/16 13:09 Ur Specific [place] 1.011 (1.003-1.030) 11/05/16 13:09 Urine Protein 100 mg/dl mg/dL (Negative) 11/05/16 13:09 Urine Glucose (UA) Neg mg/dL (Negative) 11/05/16 13:09 Urine Ketones Neg mg/dL (Negative) 11/05/16 13:09 Urine Blood Neg (Negative) 11/05/16 13:09 Urine Nitrite Neg (Negative) 11/05/16 13:09 Urine Bilirubin Neg (Negative) 11/05/16 13:09 Urine Urobilinogen < 2.0 mg/dL (<2.0) 11/05/16 13:09 Ur Leukocyte Esterase Neg (Negative) 11/05/16 13:09 Urine WBC (Auto) 4.0 /HPF (0.0-6.0) 11/05/16 13:09 Urine RBC (Auto) 1.0 /HPF (0.0-6.0) 11/05/16 13:09 U Epithel Cells (Auto) 1.0 /HPF (0-13.0) 10/07/16 18:30 Urine Bacteria (Auto) 4+ /HPF (Negative) 11/05/16 13:09 Urine WBC Clumps 2+ /HPF 09/07/16 02:47 Hyaline Casts 4 /LPF 09/07/16 02:47 Urine Mucus Few /HPF 10/07/16 18:30 Urine Yeast (Budding) 3+ /HPF 10/07/16 18:30 Urine Eosinophils None seen (None Seen) 09/07/16 16:00 Urine Total Volume 950 11/12/16 10:18 Urine Creatinine 19.7 mg/dL (0.1-20.0) 11/12/16 10:18 Height (in) 65.0 inches 11/12/16 10:18 Weight (lb) 181.0 lbs 11/12/16 10:18 Creatinine Clearance 5 11/12/16 10:18 Urine Sodium 36 mEq/L 09/16/16 19:19 Urine Total Protein 16 mg/dL (5-11.8) H 09/16/16 19:19 Fluid Total Protein < 3.0 (15.0-45.0) L 11/10/16 14:20 Fluid LDH 123 11/10/16 14:20 Vancomycin Trough 2.3 ug/mL (5.0-20.0) L 09/21/16 13:00 Random Vancomycin 16.5 ug/mL (0-40.0) 11/28/16 09:45 Urine Opiates Screen Presumptive negative 09/03/16 15:11 Urine Methadone Screen Presumptive positive 09/03/16 15:11 Ur Barbiturates Screen Presumptive positive 09/03/16 15:11 Ur Phencyclidine Scrn Presumptive negative 09/03/16 15:11 Ur Amphetamines Screen Presumptive negative 09/03/16 15:11 U Benzodiazepines Scrn Presumptive negative 09/03/16 15:11 Urine Cocaine Screen Presumptive negative 09/03/16 15:11 U Marijuana (THC) Screen Presumptive positive 09/03/16 15:11 Drugs of Abuse Note Disclamer 09/03/16 15:11 Rheumatoid Factor 24 IU/ml (0-13) H 09/08/16 11:48 SAHIL Screen Negative (Negative) 09/07/16 09:20 Proteinase 3 (PR3) Ab <1.0 AI (<1.0) 09/07/16 09:20 Myeloperoxidase Ab <1.0 AI (<1.0) 09/07/16 09:20 Sjogren's Antibody <1.0 AI (<1.0) 09/08/16 15:35 Scl-70 Scleroderma Ab <1.0 AI (<1.0) 09/08/16 15:35 Centromere B Antibody <1.0 AI (<1.0) 09/08/16 12:02 Heparin-induced Plt Ab Negative (Negative) 09/29/16 13:35 UF Heparin High Dose 11 % Release 09/29/16 13:35 SUDHIR UFH Low Dose 0.1 6 % Release 09/29/16 13:35 SUDHIR UFH Low Dose 0.5 8 % Release 09/29/16 13:35 Cardiolipid IgG Ab <14 GPL (<=14) 09/12/16 09:59 Cardiolipid IgA Ab <11 APL (<=11) 09/12/16 09:59 Cardiolipid IgM Ab <12 MPL (<=12) 09/12/16 09:59 Complement C3 148 mg/dL (90-180) 09/07/16 09:20 Complement C4 58 mg/dL (16-47) H 09/07/16 09:20 RPR Nonreactive (Nonreactive) 09/08/16 11:48 Hepatitis A IgM Ab Non-reactive (NonReactive) 09/24/16 14:40 Hep Bs Antigen Non-reactive (Negative) 09/24/16 14:40 Hep B Core IgM Ab Non-reactive (NonReactive) 09/24/16 14:40 Hepatitis C Antibody Non-reactive (NonReactive) 09/24/16 14:40 HIV 1&2 Antibody Rapid Non react (Non React) 09/08/16 11:48 HIV P24 Antigen Non react (Non React) 09/08/16 11:48 Miscellaneous Test Flexitest 1 H 11/05/16 13:25 Blood Type A POSITIVE 01/08/17 10:37 Antibody Screen Negative 12/29/16 14:00 DELORIS Antibody Screen Negative 11/24/16 11:20 Crossmatch See Detail 01/08/17 10:37
--- NOTE | 2017-01-08 14:34 | Progress Note ---
Assessment and Plan Acute Hypoxemic Respiratory Failure (now with exacerbation and back on MVS) Hypertension (unable to receive p.o. meds) Atrial Fibrillation with RVR s/p tracheostomy Acute encephalopathy s/p CVA Oropharyngeal dysphagia Enterococcal bacteremia sepsis syndrome Sacral Decubitus Ulcer (s/p surgical debridement) Anemia Obesity JUANITA now on hemodialysis Enteric Fistula - continue tube feeds at 10mls/hr after a few hours on hold; increase reglan at 5mg IV q6h - resumed vasopressin for target MAP >/= 65mmHg; also gave albumin bolus ( weaning off now) - continue HD/UF per nephrology; with CXR picture and chest ultrasound i will recommend continued UF sessions at least 3 x weekly as tolerated - US chest reviewed; will tentatively get US of right chest on monday with hopes of improving weaning tolerance - continue fentanyl patch for pain issues especially s/p debridement - continue wound care per WCT and RN's (s/p surgical debridement) - prn CRP & lactate levels if clinically indicated (Follow WBC also) - keep on with daily PSV trials and / or T-piece as tolerated (repeat trial each shift if failed earlier shift)(not tolerating today) - continue TPN administration - continue scopolamine for secretion control - continue to wean FiO2 for sats > 94% - continue bronchodilators and pulmonary toilet - VAP bundle addressed - continue prn IV metorolol - continue metoprolol and amlodipine (hold for hypotension) - continue to follow electrolytes and correct as necessary - continue GI & VTE prophylaxis - Continue flu & pneumovax per protocol - ethics consult placed .....she remains critically ill on life sustaining interventions including MVS and at risk for further deterioration including ....32' CCT today without overlap ....care plan discussed at length during team rounds ...emt intermediate prognosis remains guarded and this has intermittently been conveyed to family Subjective Date of service: 01/08/17 Principal diagnosis: Acute resp failure on MVS; S/P Acute CVA; Acute Encephalopathy; JUANITA Interval history: Patient is seen today for: Acute resp failure on MVS; S/P Acute CVA; Acute Encephalopathy; JUANITA Seen and examined at bedside; 24hour events reviewed; nursing and respiratory care staff consulted; no adverse overnight events reported to me; silvia remains critically ill and is not tolerating weaning well; RLQ abdominal drain effluent has increased in the past couple of days out of proportion to tube feeds; AMS is persistent; no high grade fevers Objective Vital Signs - 12hr 01/08/17 01/08/17 01/08/17 02:45 03:00 03:17 Temperature Pulse Rate 113 H 116 H 127 H Pulse Rate [ Bilateral Throughout] Respiratory 26 H 27 H 11 L Rate Respiratory Rate [Bilateral Throughout] Blood Pressure 98/62 110/60 110/60 O2 Sat by Pulse 92 Oximetry 01/08/17 01/08/17 01/08/17 03:30 03:45 03:48 Temperature 98.8 F Pulse Rate 121 H 114 H Pulse Rate [ Bilateral Throughout] Respiratory 43 H 43 H Rate Respiratory Rate [Bilateral Throughout] Blood Pressure 104/51 104/51 O2 Sat by Pulse Oximetry 01/08/17 01/08/17 01/08/17 04:00 04:10 04:15 Temperature Pulse Rate 113 H 112 H 111 H Pulse Rate [ Bilateral Throughout] Respiratory 32 H 37 H Rate Respiratory Rate [Bilateral Throughout] Blood Pressure 95/59 95/59 95/59 O2 Sat by Pulse 99 100 Oximetry 01/08/17 01/08/17 01/08/17 04:30 04:45 05:00 Temperature Pulse Rate 114 H 112 H 112 H Pulse Rate [ Bilateral Throughout] Respiratory 50 H 29 H 34 H Rate Respiratory Rate [Bilateral Throughout] Blood Pressure 98/63 98/63 93/49 O2 Sat by Pulse Oximetry 01/08/17 01/08/17 01/08/17 05:15 05:30 05:45 Temperature Pulse Rate 110 H 107 H 110 H Pulse Rate [ Bilateral Throughout] Respiratory 46 H 40 H 47 H Rate Respiratory Rate [Bilateral Throughout] Blood Pressure 93/49 88/51 88/51 O2 Sat by Pulse Oximetry 01/08/17 01/08/17 01/08/17 06:00 06:15 06:30 Temperature 106 F H Pulse Rate 110 H 107 H 107 H Pulse Rate [ Bilateral Throughout] Respiratory 41 H 37 H 24 Rate Respiratory Rate [Bilateral Throughout] Blood Pressure 99/57 99/57 88/53 O2 Sat by Pulse Oximetry 01/08/17 01/08/17 01/08/17 06:45 07:00 07:15 Temperature Pulse Rate 103 H 107 H 106 H Pulse Rate [ Bilateral Throughout] Respiratory 37 H 36 H 38 H Rate Respiratory Rate [Bilateral Throughout] Blood Pressure 88/53 94/48 94/48 O2 Sat by Pulse Oximetry 01/08/17 01/08/17 01/08/17 07:30 07:45 07:50 Temperature 98.3 F Pulse Rate 106 H 108 H Pulse Rate [ Bilateral Throughout] Respiratory 43 H 34 H Rate Respiratory Rate [Bilateral Throughout] Blood Pressure 96/49 96/49 O2 Sat by Pulse Oximetry 01/08/17 01/08/17 01/08/17 08:00 08:15 08:30 Temperature Pulse Rate 115 H 111 H 111 H Pulse Rate [ Bilateral Throughout] Respiratory 41 H 36 H 41 H Rate Respiratory Rate [Bilateral Throughout] Blood Pressure 107/56 107/56 116/59 O2 Sat by Pulse Oximetry 01/08/17 01/08/17 01/08/17 08:45 08:50 08:53 Temperature Pulse Rate 110 H 110 H Pulse Rate [ 110 H Bilateral Throughout] Respiratory 45 H Rate Respiratory 29 H Rate [Bilateral Throughout] Blood Pressure 107/56 116/59 O2 Sat by Pulse 99 Oximetry 01/08/17 01/08/17 01/08/17 09:00 09:15 09:30 Temperature Pulse Rate 110 H 109 H 116 H Pulse Rate [ Bilateral Throughout] Respiratory 19 24 18 Rate Respiratory Rate [Bilateral Throughout] Blood Pressure 113/65 113/65 144/76 O2 Sat by Pulse 97 Oximetry 01/08/17 01/08/17 01/08/17 09:45 10:00 10:15 Temperature Pulse Rate 116 H 116 H 113 H Pulse Rate [ Bilateral Throughout] Respiratory 48 H 41 H 42 H Rate Respiratory Rate [Bilateral Throughout] Blood Pressure 113/65 132/75 132/75 O2 Sat by Pulse 98 98 98 Oximetry 01/08/17 01/08/17 01/08/17 10:30 10:45 11:00 Temperature Pulse Rate 115 H 120 H 115 H Pulse Rate [ Bilateral Throughout] Respiratory 48 H 39 H 40 H Rate Respiratory Rate [Bilateral Throughout] Blood Pressure 122/73 122/73 118/71 O2 Sat by Pulse 98 97 98 Oximetry 01/08/17 01/08/17 01/08/17 11:15 11:30 11:45 Temperature Pulse Rate 115 H 118 H 116 H Pulse Rate [ Bilateral Throughout] Respiratory 38 H 38 H 45 H Rate Respiratory Rate [Bilateral Throughout] Blood Pressure 122/73 131/68 131/68 O2 Sat by Pulse 98 98 98 Oximetry 01/08/17 01/08/17 01/08/17 11:52 12:00 13:53 Temperature 98.2 F Pulse Rate 116 H Pulse Rate [ 109 H Bilateral Throughout] Respiratory 25 H Rate Respiratory 20 Rate [Bilateral Throughout] Blood Pressure 120/67 O2 Sat by Pulse 98 Oximetry Constitutional: appears uncomfortable, other (not tracking) Eyes: non-icteric, other (tracheostomy tube in midline of neck) ENT: oropharynx moist, oropharyngeal exudate pre Neck: supple, no lymphadenopathy, no JVD, other (no thyromegaly) Effort: mildly labored Ascultation: Bilateral: diminished breath sounds (bases), rhonchi (and referred upper airway sounds) Percussion: Bilateral: not dull, dull (bases) Cardiovascular: regular rate and rhythm, other (no rubs / murmurs) Gastrointestinal: hypoactive bowel sounds, soft, non-tender, non-distended, other (RLQ & LUQ stomas with colostomy bags) Integumentary: decubitus ulcer (sacral; stage 4 s/p surgical debridement), other (no rash; no cellulitis; poor turgor) Extremities: no cyanosis, pulses normal, no ischemia or petechiae, edema (1+ bilaterally) Neurologic: pupils equal and round, unable to assess, other (encephalopathic) Psychiatric: other (unable to assess) CBC and BMP: 01/08/17 05:00 01/09/17 04:40 ABG, PT/INR, D-dimer: ABG POC ABG pH 7.503 (7.35-7.45) H 12/19/16 09:36 ABG pH 7.450 pH Units (7.350-7.450) 12/05/16 Unknown POC ABG pCO2 30.1 (35-45) L 12/19/16 09:36 ABG pCO2 29.6 mm Hg 12/05/16 Unknown POC ABG pO2 85 (80-105) 12/19/16 09:36 ABG pO2 75.2 mm Hg (80.0-90.0) L 12/05/16 Unknown POC ABG HCO3 23.6 12/19/16 09:36 POC ABG Total CO2 25 12/19/16 09:36 POC ABG O2 Sat 97 12/19/16 09:36 ABG O2 Saturation 96.8 % (95.0-99.0) 12/05/16 Unknown PT/INR, D-dimer PT 16.1 Sec. (12.2-14.9) H 12/28/16 08:30 INR 1.23 (0.87-1.13) H 12/28/16 08:30 Abnormal lab findings: Abnormal Labs 09/03/16 09/03/16 09/03/16 00:03 00:10 00:10 WBC 13.9 H RBC 5.95 H Hgb Hct 44.0 H MCV 74 L MCH 22 L MCHC RDW 17.5 H Plt Count Lymph % (Auto) [place] % (Auto) Lymph # [place] # Baso # Seg Neutrophils % Seg Neuts % (Manual) Lymphocytes % (Manual) 54.0 H Monocytes % (Manual) Eosinophils % (Manual) Basophils % (Manual) Nucleated RBC % Seg Neutrophils # Seg Neutrophils # Man Lymphocytes # (Manual) 7.5 H Monocytes # (Manual) Eosinophils # (Manual) Basophils # (Manual) PT INR Fibrinogen dRVVT Confirm Interp Factor V Activity POC ABG pH POC ABG pCO2 POC ABG pO2 ABG pO2 ABG HCO3 ABG Base Excess ABG Hemoglobin Oxyhemoglobin Sodium Potassium 2.8 L* Chloride Carbon Dioxide 21 L BUN Creatinine 1.7 H Glucose 159 H POC Glucose 177 H Lactic Acid Calcium Phosphorus Magnesium Direct Bilirubin AST ALT Alkaline Phosphatase Lactate Dehydrogenase Troponin T C-Reactive Protein Total Protein Albumin Prealbumin Triglycerides Cholesterol LDL Cholesterol Direct HDL Cholesterol Urine pH Urine WBC (Auto) Urine Creatinine Urine Total Protein Fluid Total Protein Vancomycin Trough Rheumatoid Factor Complement C4 Miscellaneous Test Crossmatch 09/03/16 09/03/16 09/03/16 12:12 15:07 16:20 WBC RBC Hgb Hct MCV MCH MCHC RDW Plt Count Lymph % (Auto) [place] % (Auto) Lymph # [place] # Baso # Seg Neutrophils % Seg Neuts % (Manual) Lymphocytes % (Manual) Monocytes % (Manual) Eosinophils % (Manual) Basophils % (Manual) Nucleated RBC % Seg Neutrophils # Seg Neutrophils # Man Lymphocytes # (Manual) Monocytes # (Manual) Eosinophils # (Manual) Basophils # (Manual) PT INR Fibrinogen dRVVT Confirm Interp Factor V Activity POC ABG pH 7.452 H POC ABG pCO2 POC ABG pO2 ABG pO2 ABG HCO3 ABG Base Excess ABG Hemoglobin Oxyhemoglobin Sodium Potassium Chloride Carbon Dioxide BUN Creatinine Glucose POC Glucose 178 H Lactic Acid Calcium Phosphorus 2.20 L Magnesium 1.60 L Direct Bilirubin AST ALT Alkaline Phosphatase Lactate Dehydrogenase Troponin T C-Reactive Protein Total Protein Albumin Prealbumin Triglycerides Cholesterol LDL Cholesterol Direct HDL Cholesterol Urine pH Urine WBC (Auto) Urine Creatinine Urine Total Protein Fluid Total Protein Vancomycin Trough Rheumatoid Factor Complement C4 Miscellaneous Test Crossmatch 09/03/16 09/03/16 09/03/16 17:57 17:58 23:50 WBC RBC Hgb Hct MCV MCH MCHC RDW Plt Count Lymph % (Auto) [place] % (Auto) Lymph # [place] # Baso # Seg Neutrophils % Seg Neuts % (Manual) Lymphocytes % (Manual) Monocytes % (Manual) Eosinophils % (Manual) Basophils % (Manual) Nucleated RBC % Seg Neutrophils # Seg Neutrophils # Man Lymphocytes # (Manual) Monocytes # (Manual) Eosinophils # (Manual) Basophils # (Manual) PT INR Fibrinogen dRVVT Confirm Interp Factor V Activity POC ABG pH POC ABG pCO2 POC ABG pO2 ABG pO2 ABG HCO3 ABG Base Excess ABG Hemoglobin Oxyhemoglobin Sodium Potassium Chloride Carbon Dioxide BUN Creatinine Glucose POC Glucose 162 H 145 H Lactic Acid Calcium Phosphorus 2.30 L Magnesium Direct Bilirubin AST ALT Alkaline Phosphatase Lactate Dehydrogenase Troponin T C-Reactive Protein Total Protein Albumin Prealbumin Triglycerides Cholesterol LDL Cholesterol Direct HDL Cholesterol Urine pH Urine WBC (Auto) Urine Creatinine Urine Total Protein Fluid Total Protein Vancomycin Trough Rheumatoid Factor Complement C4 Miscellaneous Test Crossmatch 09/04/16 09/04/16 09/04/16 03:31 03:31 05:42 WBC RBC Hgb 9.7 L D Hct MCV 72 L MCH 23 L MCHC RDW 17.5 H Plt Count Lymph % (Auto) 11.1 L [place] % (Auto) Lymph # [place] # Baso # Seg Neutrophils % 84.3 H Seg Neuts % (Manual) Lymphocytes % (Manual) Monocytes % (Manual) Eosinophils % (Manual) Basophils % (Manual) Nucleated RBC % Seg Neutrophils # 8.9 H Seg Neutrophils # Man Lymphocytes # (Manual) Monocytes # (Manual) Eosinophils # (Manual) Basophils # (Manual) PT INR Fibrinogen dRVVT Confirm Interp Factor V Activity POC ABG pH POC ABG pCO2 POC ABG pO2 ABG pO2 ABG HCO3 ABG Base Excess ABG Hemoglobin Oxyhemoglobin Sodium 135 L Potassium 2.9 L* Chloride 97.2 L Carbon Dioxide 19 L BUN Creatinine 1.7 H Glucose 170 H POC Glucose 152 H Lactic Acid Calcium Phosphorus Magnesium Direct Bilirubin AST ALT Alkaline Phosphatase Lactate Dehydrogenase Troponin T C-Reactive Protein Total Protein Albumin Prealbumin Triglycerides 160 H Cholesterol LDL Cholesterol Direct HDL Cholesterol 31 L Urine pH Urine WBC (Auto) Urine Creatinine Urine Total Protein Fluid Total Protein Vancomycin Trough Rheumatoid Factor Complement C4 Miscellaneous Test Crossmatch 09/04/16 09/04/16 09/04/16 11:34 17:46 23:29 WBC RBC Hgb Hct MCV MCH MCHC RDW Plt Count Lymph % (Auto) [place] % (Auto) Lymph # [place] # Baso # Seg Neutrophils % Seg Neuts % (Manual) Lymphocytes % (Manual) Monocytes % (Manual) Eosinophils % (Manual) Basophils % (Manual) Nucleated RBC % Seg Neutrophils # Seg Neutrophils # Man Lymphocytes # (Manual) Monocytes # (Manual) Eosinophils # (Manual) Basophils # (Manual) PT INR Fibrinogen dRVVT Confirm Interp Factor V Activity POC ABG pH POC ABG pCO2 POC ABG pO2 ABG pO2 ABG HCO3 ABG Base Excess ABG Hemoglobin Oxyhemoglobin Sodium Potassium Chloride Carbon Dioxide BUN Creatinine Glucose POC Glucose 165 H 210 H 139 H Lactic Acid Calcium Phosphorus Magnesium Direct Bilirubin AST ALT Alkaline Phosphatase Lactate Dehydrogenase Troponin T C-Reactive Protein Total Protein Albumin Prealbumin Triglycerides Cholesterol LDL Cholesterol Direct HDL Cholesterol Urine pH Urine WBC (Auto) Urine Creatinine Urine Total Protein Fluid Total Protein Vancomycin Trough Rheumatoid Factor Complement C4 Miscellaneous Test Crossmatch 09/05/16 09/05/16 09/05/16 04:05 04:05 05:38 WBC RBC Hgb Hct MCV 76 L D MCH 23 L MCHC RDW 17.8 H Plt Count Lymph % (Auto) [place] % (Auto) Lymph # [place] # Baso # Seg Neutrophils % Seg Neuts % (Manual) Lymphocytes % (Manual) Monocytes % (Manual) Eosinophils % (Manual) Basophils % (Manual) Nucleated RBC % Seg Neutrophils # Seg Neutrophils # Man Lymphocytes # (Manual) Monocytes # (Manual) Eosinophils # (Manual) Basophils # (Manual) PT INR Fibrinogen dRVVT Confirm Interp Factor V Activity POC ABG pH POC ABG pCO2 POC ABG pO2 ABG pO2 ABG HCO3 ABG Base Excess ABG Hemoglobin Oxyhemoglobin Sodium 134 L Potassium Chloride Carbon Dioxide 18 L BUN Creatinine 1.8 H Glucose 192 H POC Glucose 175 H Lactic Acid Calcium Phosphorus Magnesium Direct Bilirubin AST ALT Alkaline Phosphatase Lactate Dehydrogenase Troponin T C-Reactive Protein Total Protein Albumin Prealbumin Triglycerides Cholesterol LDL Cholesterol Direct HDL Cholesterol Urine pH Urine WBC (Auto) Urine Creatinine Urine Total Protein Fluid Total Protein Vancomycin Trough Rheumatoid Factor Complement C4 Miscellaneous Test Crossmatch 09/05/16 09/05/16 09/05/16 11:38 17:48 23:22 WBC RBC Hgb Hct MCV MCH MCHC RDW Plt Count Lymph % (Auto) [place] % (Auto) Lymph # [place] # Baso # Seg Neutrophils % Seg Neuts % (Manual) Lymphocytes % (Manual) Monocytes % (Manual) Eosinophils % (Manual) Basophils % (Manual) Nucleated RBC % Seg Neutrophils # Seg Neutrophils # Man Lymphocytes # (Manual) Monocytes # (Manual) Eosinophils # (Manual) Basophils # (Manual) PT INR Fibrinogen dRVVT Confirm Interp Factor V Activity POC ABG pH POC ABG pCO2 POC ABG pO2 ABG pO2 ABG HCO3 ABG Base Excess ABG Hemoglobin Oxyhemoglobin Sodium Potassium Chloride Carbon Dioxide BUN Creatinine Glucose POC Glucose 164 H 186 H 195 H Lactic Acid Calcium Phosphorus Magnesium Direct Bilirubin AST ALT Alkaline Phosphatase Lactate Dehydrogenase Troponin T C-Reactive Protein Total Protein Albumin Prealbumin Triglycerides Cholesterol LDL Cholesterol Direct HDL Cholesterol Urine pH Urine WBC (Auto) Urine Creatinine Urine Total Protein Fluid Total Protein Vancomycin Trough Rheumatoid Factor Complement C4 Miscellaneous Test Crossmatch 09/06/16 09/06/16 09/06/16 04:12 05:59 07:32 WBC RBC Hgb Hct MCV MCH MCHC RDW Plt Count Lymph % (Auto) [place] % (Auto) Lymph # [place] # Baso # Seg Neutrophils % Seg Neuts % (Manual) Lymphocytes % (Manual) Monocytes % (Manual) Eosinophils % (Manual) Basophils % (Manual) Nucleated RBC % Seg Neutrophils # Seg Neutrophils # Man Lymphocytes # (Manual) Monocytes # (Manual) Eosinophils # (Manual) Basophils # (Manual) PT INR Fibrinogen dRVVT Confirm Interp Factor V Activity POC ABG pH 7.514 H POC ABG pCO2 29.1 L POC ABG pO2 72 L ABG pO2 ABG HCO3 ABG Base Excess ABG Hemoglobin Oxyhemoglobin Sodium 133 L Potassium 3.4 L Chloride 94.9 L Carbon Dioxide 19 L BUN 30 H Creatinine 2.1 H Glucose 139 H POC Glucose 146 H Lactic Acid Calcium Phosphorus Magnesium Direct Bilirubin AST ALT Alkaline Phosphatase Lactate Dehydrogenase Troponin T C-Reactive Protein Total Protein Albumin Prealbumin Triglycerides Cholesterol LDL Cholesterol Direct HDL Cholesterol Urine pH Urine WBC (Auto) Urine Creatinine Urine Total Protein Fluid Total Protein Vancomycin Trough Rheumatoid Factor Complement C4 Miscellaneous Test Crossmatch 09/06/16 09/06/16 09/06/16 11:57 17:58 19:02 WBC RBC Hgb Hct MCV MCH MCHC RDW Plt Count Lymph % (Auto) [place] % (Auto) Lymph # [place] # Baso # Seg Neutrophils % Seg Neuts % (Manual) Lymphocytes % (Manual) Monocytes % (Manual) Eosinophils % (Manual) Basophils % (Manual) Nucleated RBC % Seg Neutrophils # Seg Neutrophils # Man Lymphocytes # (Manual) Monocytes # (Manual) Eosinophils # (Manual) Basophils # (Manual) PT INR Fibrinogen dRVVT Confirm Interp Factor V Activity POC ABG pH 7.465 H POC ABG pCO2 32.0 L POC ABG pO2 ABG pO2 ABG HCO3 ABG Base Excess ABG Hemoglobin Oxyhemoglobin Sodium Potassium Chloride Carbon Dioxide BUN Creatinine Glucose POC Glucose 165 H 160 H Lactic Acid Calcium Phosphorus Magnesium Direct Bilirubin AST ALT Alkaline Phosphatase Lactate Dehydrogenase Troponin T C-Reactive Protein Total Protein Albumin Prealbumin Triglycerides Cholesterol LDL Cholesterol Direct HDL Cholesterol Urine pH Urine WBC (Auto) Urine Creatinine Urine Total Protein Fluid Total Protein Vancomycin Trough Rheumatoid Factor Complement C4 Miscellaneous Test Crossmatch 09/06/16 09/07/16 09/07/16 23:45 02:47 02:47 WBC RBC Hgb Hct MCV MCH MCHC RDW Plt Count Lymph % (Auto) [place] % (Auto) Lymph # [place] # Baso # Seg Neutrophils % Seg Neuts % (Manual) Lymphocytes % (Manual) Monocytes % (Manual) Eosinophils % (Manual) Basophils % (Manual) Nucleated RBC % Seg Neutrophils # Seg Neutrophils # Man Lymphocytes # (Manual) Monocytes # (Manual) Eosinophils # (Manual) Basophils # (Manual) PT INR Fibrinogen dRVVT Confirm Interp Factor V Activity POC ABG pH POC ABG pCO2 POC ABG pO2 ABG pO2 ABG HCO3 ABG Base Excess ABG Hemoglobin Oxyhemoglobin Sodium Potassium Chloride Carbon Dioxide BUN Creatinine Glucose POC Glucose 204 H Lactic Acid Calcium Phosphorus Magnesium Direct Bilirubin AST ALT Alkaline Phosphatase Lactate Dehydrogenase Troponin T C-Reactive Protein Total Protein Albumin Prealbumin Triglycerides Cholesterol LDL Cholesterol Direct HDL Cholesterol Urine pH Urine WBC (Auto) 68.0 H Urine Creatinine 106.1 H Urine Total Protein Fluid Total Protein Vancomycin Trough Rheumatoid Factor Complement C4 Miscellaneous Test Crossmatch 09/07/16 09/07/16 09/07/16 04:50 06:19 06:39 WBC RBC Hgb Hct MCV MCH MCHC RDW Plt Count Lymph % (Auto) [place] % (Auto) Lymph # [place] # Baso # Seg Neutrophils % Seg Neuts % (Manual) Lymphocytes % (Manual) Monocytes % (Manual) Eosinophils % (Manual) Basophils % (Manual) Nucleated RBC % Seg Neutrophils # Seg Neutrophils # Man Lymphocytes # (Manual) Monocytes # (Manual) Eosinophils # (Manual) Basophils # (Manual) PT INR Fibrinogen dRVVT Confirm Interp Factor V Activity POC ABG pH 7.457 H POC ABG pCO2 32.1 L POC ABG pO2 76 L ABG pO2 ABG HCO3 ABG Base Excess ABG Hemoglobin Oxyhemoglobin Sodium 132 L Potassium Chloride 94.7 L Carbon Dioxide BUN 53 H Creatinine 2.9 H Glucose 151 H POC Glucose 149 H Lactic Acid Calcium Phosphorus Magnesium Direct Bilirubin AST ALT Alkaline Phosphatase Lactate Dehydrogenase Troponin T C-Reactive Protein Total Protein Albumin Prealbumin Triglycerides Cholesterol LDL Cholesterol Direct HDL Cholesterol Urine pH Urine WBC (Auto) Urine Creatinine Urine Total Protein Fluid Total Protein Vancomycin Trough Rheumatoid Factor Complement C4 Miscellaneous Test Crossmatch 09/07/16 09/07/16 09/07/16 09:20 11:43 11:43 WBC 19.4 H RBC Hgb 8.3 L Hct 26.4 L D MCV 72 L D MCH 22 L MCHC RDW 17.9 H Plt Count Lymph % (Auto) 8.5 L [place] % (Auto) Lymph # [place] # 1.0 H Baso # Seg Neutrophils % 85.8 H Seg Neuts % (Manual) Lymphocytes % (Manual) Monocytes % (Manual) Eosinophils % (Manual) Basophils % (Manual) Nucleated RBC % Seg Neutrophils # 16.6 H Seg Neutrophils # Man Lymphocytes # (Manual) Monocytes # (Manual) Eosinophils # (Manual) Basophils # (Manual) PT INR Fibrinogen dRVVT Confirm Interp Factor V Activity POC ABG pH POC ABG pCO2 POC ABG pO2 ABG pO2 ABG HCO3 ABG Base Excess ABG Hemoglobin Oxyhemoglobin Sodium 134 L Potassium Chloride 97.2 L Carbon Dioxide 20 L BUN 58 H Creatinine 2.9 H Glucose 147 H POC Glucose Lactic Acid Calcium Phosphorus 2.40 L Magnesium 2.40 H Direct Bilirubin AST ALT Alkaline Phosphatase Lactate Dehydrogenase Troponin T C-Reactive Protein Total Protein 5.8 L Albumin 2.2 L Prealbumin Triglycerides Cholesterol LDL Cholesterol Direct HDL Cholesterol Urine pH Urine WBC (Auto) Urine Creatinine Urine Total Protein Fluid Total Protein Vancomycin Trough Rheumatoid Factor Complement C4 58 H Miscellaneous Test Crossmatch 09/07/16 09/07/16 09/07/16 11:50 16:00 17:31 WBC RBC Hgb Hct MCV MCH MCHC RDW Plt Count Lymph % (Auto) [place] % (Auto) Lymph # [place] # Baso # Seg Neutrophils % Seg Neuts % (Manual) Lymphocytes % (Manual) Monocytes % (Manual) Eosinophils % (Manual) Basophils % (Manual) Nucleated RBC % Seg Neutrophils # Seg Neutrophils # Man Lymphocytes # (Manual) Monocytes # (Manual) Eosinophils # (Manual) Basophils # (Manual) PT INR Fibrinogen dRVVT Confirm Interp Factor V Activity POC ABG pH POC ABG pCO2 POC ABG pO2 158 H ABG pO2 ABG HCO3 ABG Base Excess ABG Hemoglobin Oxyhemoglobin Sodium Potassium Chloride Carbon Dioxide BUN Creatinine Glucose POC Glucose 175 H Lactic Acid Calcium Phosphorus Magnesium Direct Bilirubin AST ALT Alkaline Phosphatase Lactate Dehydrogenase Troponin T C-Reactive Protein Total Protein Albumin Prealbumin Triglycerides Cholesterol LDL Cholesterol Direct HDL Cholesterol Urine pH Urine WBC (Auto) Urine Creatinine 66.3 H Urine Total Protein Fluid Total Protein Vancomycin Trough Rheumatoid Factor Complement C4 Miscellaneous Test Crossmatch 09/07/16 09/08/16 09/08/16 23:50 05:46 06:18 WBC 17.8 H RBC 3.58 L Hgb 8.1 L Hct 25.5 L MCV 71 L MCH 23 L MCHC RDW 18.4 H Plt Count Lymph % (Auto) [place] % (Auto) Lymph # [place] # Baso # Seg Neutrophils % Seg Neuts % (Manual) 92.0 H Lymphocytes % (Manual) 6.0 L Monocytes % (Manual) Eosinophils % (Manual) Basophils % (Manual) Nucleated RBC % Seg Neutrophils # Seg Neutrophils # Man 16.4 H Lymphocytes # (Manual) 1.1 L Monocytes # (Manual) Eosinophils # (Manual) Basophils # (Manual) PT INR Fibrinogen dRVVT Confirm Interp Factor V Activity POC ABG pH POC ABG pCO2 34.3 L POC ABG pO2 71 L ABG pO2 ABG HCO3 ABG Base Excess ABG Hemoglobin Oxyhemoglobin Sodium Potassium Chloride Carbon Dioxide BUN Creatinine Glucose POC Glucose 216 H Lactic Acid Calcium Phosphorus Magnesium Direct Bilirubin AST ALT Alkaline Phosphatase Lactate Dehydrogenase Troponin T C-Reactive Protein Total Protein Albumin Prealbumin Triglycerides Cholesterol LDL Cholesterol Direct HDL Cholesterol Urine pH Urine WBC (Auto) Urine Creatinine Urine Total Protein Fluid Total Protein Vancomycin Trough Rheumatoid Factor Complement C4 Miscellaneous Test Crossmatch 09/08/16 09/08/16 09/08/16 06:18 06:51 10:55 WBC RBC Hgb Hct MCV MCH MCHC RDW Plt Count Lymph % (Auto) [place] % (Auto) Lymph # [place] # Baso # Seg Neutrophils % Seg Neuts % (Manual) Lymphocytes % (Manual) Monocytes % (Manual) Eosinophils % (Manual) Basophils % (Manual) Nucleated RBC % Seg Neutrophils # Seg Neutrophils # Man Lymphocytes # (Manual) Monocytes # (Manual) Eosinophils # (Manual) Basophils # (Manual) PT INR Fibrinogen dRVVT Confirm Interp Factor V Activity POC ABG pH POC ABG pCO2 POC ABG pO2 ABG pO2 ABG HCO3 ABG Base Excess ABG Hemoglobin Oxyhemoglobin Sodium 133 L Potassium Chloride 96.9 L Carbon Dioxide 20 L BUN 63 H Creatinine 2.7 H Glucose 195 H POC Glucose 204 H 169 H Lactic Acid Calcium Phosphorus Magnesium Direct Bilirubin AST ALT Alkaline Phosphatase Lactate Dehydrogenase Troponin T C-Reactive Protein Total Protein Albumin Prealbumin Triglycerides Cholesterol LDL Cholesterol Direct HDL Cholesterol Urine pH Urine WBC (Auto) Urine Creatinine Urine Total Protein Fluid Total Protein Vancomycin Trough Rheumatoid Factor Complement C4 Miscellaneous Test Crossmatch 09/08/16 09/08/16 09/08/16 11:48 11:48 11:48 WBC RBC Hgb Hct MCV MCH MCHC RDW Plt Count Lymph % (Auto) [place] % (Auto) Lymph # [place] # Baso # Seg Neutrophils % Seg Neuts % (Manual) Lymphocytes % (Manual) Monocytes % (Manual) Eosinophils % (Manual) Basophils % (Manual) Nucleated RBC % Seg Neutrophils # Seg Neutrophils # Man Lymphocytes # (Manual) Monocytes # (Manual) Eosinophils # (Manual) Basophils # (Manual) PT INR Fibrinogen 750 H dRVVT Confirm Interp Factor V Activity POC ABG pH POC ABG pCO2 POC ABG pO2 ABG pO2 ABG HCO3 ABG Base Excess ABG Hemoglobin Oxyhemoglobin Sodium Potassium Chloride Carbon Dioxide BUN Creatinine Glucose POC Glucose Lactic Acid Calcium Phosphorus Magnesium Direct Bilirubin AST ALT Alkaline Phosphatase Lactate Dehydrogenase Troponin T C-Reactive Protein 15.70 H Total Protein Albumin Prealbumin Triglycerides Cholesterol LDL Cholesterol Direct HDL Cholesterol Urine pH Urine WBC (Auto) Urine Creatinine Urine Total Protein Fluid Total Protein Vancomycin Trough Rheumatoid Factor 24 H Complement C4 Miscellaneous Test Crossmatch 09/08/16 09/08/16 09/09/16 15:35 18:25 00:24 WBC RBC Hgb Hct MCV MCH MCHC RDW Plt Count Lymph % (Auto) [place] % (Auto) Lymph # [place] # Baso # Seg Neutrophils % Seg Neuts % (Manual) Lymphocytes % (Manual) Monocytes % (Manual) Eosinophils % (Manual) Basophils % (Manual) Nucleated RBC % Seg Neutrophils # Seg Neutrophils # Man Lymphocytes # (Manual) Monocytes # (Manual) Eosinophils # (Manual) Basophils # (Manual) PT INR Fibrinogen dRVVT Confirm Interp Factor V Activity 182 H POC ABG pH POC ABG pCO2 POC ABG pO2 ABG pO2 ABG HCO3 ABG Base Excess ABG Hemoglobin Oxyhemoglobin Sodium Potassium Chloride Carbon Dioxide BUN Creatinine Glucose POC Glucose 184 H 216 H Lactic Acid Calcium Phosphorus Magnesium Direct Bilirubin AST ALT Alkaline Phosphatase Lactate Dehydrogenase Troponin T C-Reactive Protein Total Protein Albumin Prealbumin Triglycerides Cholesterol LDL Cholesterol Direct HDL Cholesterol Urine pH Urine WBC (Auto) Urine Creatinine Urine Total Protein Fluid Total Protein Vancomycin Trough Rheumatoid Factor Complement C4 Miscellaneous Test Crossmatch 09/09/16 09/09/16 09/09/16 03:00 03:00 04:04 WBC 27.9 H RBC Hgb 8.7 L Hct 28.1 L MCV 72 L MCH 22 L MCHC RDW 18.4 H Plt Count 485 H Lymph % (Auto) [place] % (Auto) Lymph # [place] # Baso # Seg Neutrophils % Seg Neuts % (Manual) 77.0 H Lymphocytes % (Manual) 9.0 L Monocytes % (Manual) Eosinophils % (Manual) Basophils % (Manual) Nucleated RBC % Seg Neutrophils # Seg Neutrophils # Man 21.5 H Lymphocytes # (Manual) Monocytes # (Manual) 2.0 H Eosinophils # (Manual) Basophils # (Manual) PT INR Fibrinogen dRVVT Confirm Interp Factor V Activity POC ABG pH POC ABG pCO2 POC ABG pO2 121 H ABG pO2 ABG HCO3 ABG Base Excess ABG Hemoglobin Oxyhemoglobin Sodium 135 L Potassium Chloride 96.3 L Carbon Dioxide 21 L BUN 83 H Creatinine 3.0 H Glucose 135 H POC Glucose Lactic Acid Calcium Phosphorus Magnesium Direct Bilirubin AST ALT Alkaline Phosphatase Lactate Dehydrogenase Troponin T C-Reactive Protein Total Protein Albumin Prealbumin Triglycerides Cholesterol LDL Cholesterol Direct HDL Cholesterol Urine pH Urine WBC (Auto) Urine Creatinine Urine Total Protein Fluid Total Protein Vancomycin Trough Rheumatoid Factor Complement C4 Miscellaneous Test Crossmatch 09/09/16 09/09/16 09/09/16 05:41 11:55 14:13 WBC RBC Hgb Hct MCV MCH MCHC RDW Plt Count Lymph % (Auto) [place] % (Auto) Lymph # [place] # Baso # Seg Neutrophils % Seg Neuts % (Manual) Lymphocytes % (Manual) Monocytes % (Manual) Eosinophils % (Manual) Basophils % (Manual) Nucleated RBC % Seg Neutrophils # Seg Neutrophils # Man Lymphocytes # (Manual) Monocytes # (Manual) Eosinophils # (Manual) Basophils # (Manual) PT INR Fibrinogen dRVVT Confirm Interp Factor V Activity POC ABG pH POC ABG pCO2 POC ABG pO2 ABG pO2 ABG HCO3 ABG Base Excess ABG Hemoglobin Oxyhemoglobin Sodium Potassium Chloride Carbon Dioxide BUN Creatinine Glucose POC Glucose 155 H 186 H Lactic Acid Calcium Phosphorus Magnesium Direct Bilirubin AST ALT Alkaline Phosphatase Lactate Dehydrogenase Troponin T C-Reactive Protein Total Protein Albumin Prealbumin Triglycerides Cholesterol LDL Cholesterol Direct HDL Cholesterol Urine pH Urine WBC (Auto) 25.0 H Urine Creatinine Urine Total Protein Fluid Total Protein Vancomycin Trough Rheumatoid Factor Complement C4 Miscellaneous Test Crossmatch 09/09/16 09/09/16 09/10/16 17:33 23:13 05:09 WBC RBC Hgb Hct MCV MCH MCHC RDW Plt Count Lymph % (Auto) [place] % (Auto) Lymph # [place] # Baso # Seg Neutrophils % Seg Neuts % (Manual) Lymphocytes % (Manual) Monocytes % (Manual) Eosinophils % (Manual) Basophils % (Manual) Nucleated RBC % Seg Neutrophils # Seg Neutrophils # Man Lymphocytes # (Manual) Monocytes # (Manual) Eosinophils # (Manual) Basophils # (Manual) PT INR Fibrinogen dRVVT Confirm Interp Factor V Activity POC ABG pH POC ABG pCO2 POC ABG pO2 74 L ABG pO2 ABG HCO3 ABG Base Excess ABG Hemoglobin Oxyhemoglobin Sodium Potassium Chloride Carbon Dioxide BUN Creatinine Glucose POC Glucose 211 H 215 H Lactic Acid Calcium Phosphorus Magnesium Direct Bilirubin AST ALT Alkaline Phosphatase Lactate Dehydrogenase Troponin T C-Reactive Protein Total Protein Albumin Prealbumin Triglycerides Cholesterol LDL Cholesterol Direct HDL Cholesterol Urine pH Urine WBC (Auto) Urine Creatinine Urine Total Protein Fluid Total Protein Vancomycin Trough Rheumatoid Factor Complement C4 Miscellaneous Test Crossmatch 09/10/16 09/10/16 09/10/16 05:17 05:17 11:31 WBC 15.8 H RBC 3.25 L Hgb 7.3 L Hct 22.9 L MCV 71 L MCH 23 L MCHC RDW 18.4 H Plt Count Lymph % (Auto) [place] % (Auto) Lymph # [place] # Baso # Seg Neutrophils % Seg Neuts % (Manual) 91.0 H Lymphocytes % (Manual) 4.0 L Monocytes % (Manual) Eosinophils % (Manual) Basophils % (Manual) Nucleated RBC % Seg Neutrophils # Seg Neutrophils # Man 14.4 H Lymphocytes # (Manual) 0.6 L Monocytes # (Manual) Eosinophils # (Manual) Basophils # (Manual) PT INR Fibrinogen dRVVT Confirm Interp Factor V Activity POC ABG pH POC ABG pCO2 POC ABG pO2 ABG pO2 ABG HCO3 ABG Base Excess ABG Hemoglobin Oxyhemoglobin Sodium Potassium Chloride Carbon Dioxide 21 L BUN 93 H Creatinine 2.9 H Glucose 146 H POC Glucose 188 H Lactic Acid Calcium 8.1 L Phosphorus Magnesium Direct Bilirubin AST ALT Alkaline Phosphatase Lactate Dehydrogenase Troponin T C-Reactive Protein Total Protein Albumin Prealbumin Triglycerides Cholesterol LDL Cholesterol Direct HDL Cholesterol Urine pH Urine WBC (Auto) Urine Creatinine Urine Total Protein Fluid Total Protein Vancomycin Trough Rheumatoid Factor Complement C4 Miscellaneous Test Crossmatch 09/10/16 09/10/16 09/10/16 13:17 17:20 23:32 WBC RBC Hgb Hct MCV MCH MCHC RDW Plt Count Lymph % (Auto) [place] % (Auto) Lymph # [place] # Baso # Seg Neutrophils % Seg Neuts % (Manual) Lymphocytes % (Manual) Monocytes % (Manual) Eosinophils % (Manual) Basophils % (Manual) Nucleated RBC % Seg Neutrophils # Seg Neutrophils # Man Lymphocytes # (Manual) Monocytes # (Manual) Eosinophils # (Manual) Basophils # (Manual) PT INR Fibrinogen dRVVT Confirm Interp Factor V Activity POC ABG pH POC ABG pCO2 POC ABG pO2 ABG pO2 ABG HCO3 ABG Base Excess ABG Hemoglobin Oxyhemoglobin Sodium Potassium Chloride Carbon Dioxide BUN Creatinine Glucose POC Glucose 199 H 186 H Lactic Acid Calcium Phosphorus Magnesium Direct Bilirubin AST ALT Alkaline Phosphatase Lactate Dehydrogenase Troponin T C-Reactive Protein Total Protein Albumin Prealbumin Triglycerides Cholesterol LDL Cholesterol Direct HDL Cholesterol Urine pH Urine WBC (Auto) Urine Creatinine Urine Total Protein Fluid Total Protein Vancomycin Trough Rheumatoid Factor Complement C4 Miscellaneous Test Crossmatch See Detail 09/11/16 09/11/16 09/11/16 05:10 05:10 05:17 WBC 28.4 H RBC Hgb 9.2 L Hct 29.3 L D MCV 73 L MCH 23 L MCHC RDW 18.9 H Plt Count 452 H Lymph % (Auto) [place] % (Auto) Lymph # [place] # Baso # Seg Neutrophils % Seg Neuts % (Manual) 89.5 H Lymphocytes % (Manual) 2.0 L Monocytes % (Manual) Eosinophils % (Manual) Basophils % (Manual) Nucleated RBC % Seg Neutrophils # Seg Neutrophils # Man 25.4 H Lymphocytes # (Manual) 0.6 L Monocytes # (Manual) 1.3 H Eosinophils # (Manual) Basophils # (Manual) PT INR Fibrinogen dRVVT Confirm Interp Factor V Activity POC ABG pH POC ABG pCO2 POC ABG pO2 ABG pO2 ABG HCO3 ABG Base Excess ABG Hemoglobin Oxyhemoglobin Sodium 136 L Potassium Chloride Carbon Dioxide 18 L BUN 107 H Creatinine 2.6 H Glucose 187 H POC Glucose 230 H Lactic Acid Calcium 8.3 L Phosphorus Magnesium Direct Bilirubin AST ALT Alkaline Phosphatase Lactate Dehydrogenase Troponin T C-Reactive Protein Total Protein Albumin Prealbumin Triglycerides Cholesterol LDL Cholesterol Direct HDL Cholesterol Urine pH Urine WBC (Auto) Urine Creatinine Urine Total Protein Fluid Total Protein Vancomycin Trough Rheumatoid Factor Complement C4 Miscellaneous Test Crossmatch 09/11/16 09/11/16 09/11/16 05:55 12:02 17:32 WBC RBC Hgb Hct MCV MCH MCHC RDW Plt Count Lymph % (Auto) [place] % (Auto) Lymph # [place] # Baso # Seg Neutrophils % Seg Neuts % (Manual) Lymphocytes % (Manual) Monocytes % (Manual) Eosinophils % (Manual) Basophils % (Manual) Nucleated RBC % Seg Neutrophils # Seg Neutrophils # Man Lymphocytes # (Manual) Monocytes # (Manual) Eosinophils # (Manual) Basophils # (Manual) PT INR Fibrinogen dRVVT Confirm Interp Factor V Activity POC ABG pH POC ABG pCO2 33.8 L POC ABG pO2 ABG pO2 ABG HCO3 ABG Base Excess ABG Hemoglobin Oxyhemoglobin Sodium Potassium Chloride Carbon Dioxide BUN Creatinine Glucose POC Glucose 191 H 239 H Lactic Acid Calcium Phosphorus Magnesium Direct Bilirubin AST ALT Alkaline Phosphatase Lactate Dehydrogenase Troponin T C-Reactive Protein Total Protein Albumin Prealbumin Triglycerides Cholesterol LDL Cholesterol Direct HDL Cholesterol Urine pH Urine WBC (Auto) Urine Creatinine Urine Total Protein Fluid Total Protein Vancomycin Trough Rheumatoid Factor Complement C4 Miscellaneous Test Crossmatch 09/11/16 09/12/16 09/12/16 23:52 05:09 05:32 WBC RBC Hgb Hct MCV MCH MCHC RDW Plt Count Lymph % (Auto) [place] % (Auto) Lymph # [place] # Baso # Seg Neutrophils % Seg Neuts % (Manual) Lymphocytes % (Manual) Monocytes % (Manual) Eosinophils % (Manual) Basophils % (Manual) Nucleated RBC % Seg Neutrophils # Seg Neutrophils # Man Lymphocytes # (Manual) Monocytes # (Manual) Eosinophils # (Manual) Basophils # (Manual) PT INR Fibrinogen dRVVT Confirm Interp Factor V Activity POC ABG pH POC ABG pCO2 34.6 L POC ABG pO2 ABG pO2 ABG HCO3 ABG Base Excess ABG Hemoglobin Oxyhemoglobin Sodium Potassium Chloride Carbon Dioxide BUN Creatinine Glucose POC Glucose 265 H 184 H Lactic Acid Calcium Phosphorus Magnesium Direct Bilirubin AST ALT Alkaline Phosphatase Lactate Dehydrogenase Troponin T C-Reactive Protein Total Protein Albumin Prealbumin Triglycerides Cholesterol LDL Cholesterol Direct HDL Cholesterol Urine pH Urine WBC (Auto) Urine Creatinine Urine Total Protein Fluid Total Protein Vancomycin Trough Rheumatoid Factor Complement C4 Miscellaneous Test Crossmatch 09/12/16 09/12/16 09/12/16 06:45 06:45 07:22 WBC 31.7 H RBC 3.54 L Hgb 8.3 L Hct 25.9 L MCV 73 L MCH 23 L MCHC RDW 18.9 H Plt Count Lymph % (Auto) [place] % (Auto) Lymph # [place] # Baso # Seg Neutrophils % Seg Neuts % (Manual) 88.5 H Lymphocytes % (Manual) 4.5 L Monocytes % (Manual) Eosinophils % (Manual) Basophils % (Manual) Nucleated RBC % Seg Neutrophils # Seg Neutrophils # Man 28.1 H Lymphocytes # (Manual) Monocytes # (Manual) 1.0 H Eosinophils # (Manual) Basophils # (Manual) PT INR Fibrinogen dRVVT Confirm Interp Factor V Activity POC ABG pH POC ABG pCO2 POC ABG pO2 ABG pO2 ABG HCO3 ABG Base Excess ABG Hemoglobin Oxyhemoglobin Sodium Potassium Chloride Carbon Dioxide 20 L BUN 115 H Creatinine 2.7 H Glucose 165 H POC Glucose Lactic Acid Calcium 8.0 L Phosphorus Magnesium Direct Bilirubin AST ALT Alkaline Phosphatase Lactate Dehydrogenase Troponin T C-Reactive Protein Total Protein Albumin Prealbumin Triglycerides 217 H Cholesterol LDL Cholesterol Direct HDL Cholesterol Urine pH Urine WBC (Auto) Urine Creatinine Urine Total Protein Fluid Total Protein Vancomycin Trough Rheumatoid Factor Complement C4 Miscellaneous Test Crossmatch 09/12/16 09/12/16 09/12/16 07:22 09:59 12:21 WBC RBC Hgb Hct MCV MCH MCHC RDW Plt Count Lymph % (Auto) [place] % (Auto) Lymph # [place] # Baso # Seg Neutrophils % Seg Neuts % (Manual) Lymphocytes % (Manual) Monocytes % (Manual) Eosinophils % (Manual) Basophils % (Manual) Nucleated RBC % Seg Neutrophils # Seg Neutrophils # Man Lymphocytes # (Manual) Monocytes # (Manual) Eosinophils # (Manual) Basophils # (Manual) PT INR Fibrinogen dRVVT Confirm Interp Positive H Factor V Activity POC ABG pH POC ABG pCO2 POC ABG pO2 ABG pO2 ABG HCO3 ABG Base Excess ABG Hemoglobin Oxyhemoglobin Sodium Potassium Chloride Carbon Dioxide BUN Creatinine Glucose POC Glucose 224 H Lactic Acid Calcium Phosphorus Magnesium Direct Bilirubin AST ALT Alkaline Phosphatase Lactate Dehydrogenase Troponin T C-Reactive Protein 1.70 H Total Protein Albumin Prealbumin Triglycerides Cholesterol LDL Cholesterol Direct HDL Cholesterol Urine pH Urine WBC (Auto) Urine Creatinine Urine Total Protein Fluid Total Protein Vancomycin Trough Rheumatoid Factor Complement C4 Miscellaneous Test Crossmatch 09/12/16 09/12/16 09/13/16 16:51 23:28 04:00 WBC 45.0 H* RBC Hgb 9.4 L Hct MCV 75 L MCH 23 L MCHC RDW 19.0 H Plt Count 470 H Lymph % (Auto) [place] % (Auto) Lymph # [place] # Baso # Seg Neutrophils % Seg Neuts % (Manual) 89.0 H Lymphocytes % (Manual) 5.0 L Monocytes % (Manual) Eosinophils % (Manual) Basophils % (Manual) Nucleated RBC % Seg Neutrophils # Seg Neutrophils # Man 40.1 H Lymphocytes # (Manual) Monocytes # (Manual) Eosinophils # (Manual) Basophils # (Manual) PT INR Fibrinogen dRVVT Confirm Interp Factor V Activity POC ABG pH POC ABG pCO2 POC ABG pO2 ABG pO2 ABG HCO3 ABG Base Excess ABG Hemoglobin Oxyhemoglobin Sodium Potassium Chloride Carbon Dioxide BUN Creatinine Glucose POC Glucose 169 H 150 H Lactic Acid Calcium Phosphorus Magnesium Direct Bilirubin AST ALT Alkaline Phosphatase Lactate Dehydrogenase Troponin T C-Reactive Protein Total Protein Albumin Prealbumin Triglycerides Cholesterol LDL Cholesterol Direct HDL Cholesterol Urine pH Urine WBC (Auto) Urine Creatinine Urine Total Protein Fluid Total Protein Vancomycin Trough Rheumatoid Factor Complement C4 Miscellaneous Test Crossmatch 09/13/16 09/13/16 09/13/16 04:00 11:26 17:31 WBC RBC Hgb Hct MCV MCH MCHC RDW Plt Count Lymph % (Auto) [place] % (Auto) Lymph # [place] # Baso # Seg Neutrophils % Seg Neuts % (Manual) Lymphocytes % (Manual) Monocytes % (Manual) Eosinophils % (Manual) Basophils % (Manual) Nucleated RBC % Seg Neutrophils # Seg Neutrophils # Man Lymphocytes # (Manual) Monocytes # (Manual) Eosinophils # (Manual) Basophils # (Manual) PT INR Fibrinogen dRVVT Confirm Interp Factor V Activity POC ABG pH POC ABG pCO2 POC ABG pO2 ABG pO2 ABG HCO3 ABG Base Excess ABG Hemoglobin Oxyhemoglobin Sodium Potassium Chloride Carbon Dioxide 20 L BUN 116 H Creatinine 3.0 H Glucose 172 H POC Glucose 140 H 183 H Lactic Acid Calcium Phosphorus Magnesium Direct Bilirubin AST ALT Alkaline Phosphatase Lactate Dehydrogenase Troponin T C-Reactive Protein Total Protein 6.2 L Albumin 2.9 L Prealbumin Triglycerides Cholesterol LDL Cholesterol Direct HDL Cholesterol Urine pH Urine WBC (Auto) Urine Creatinine Urine Total Protein Fluid Total Protein Vancomycin Trough Rheumatoid Factor Complement C4 Miscellaneous Test Crossmatch 09/13/16 09/14/16 09/14/16 23:23 04:06 04:07 WBC 29.4 H RBC Hgb 8.9 L Hct 27.3 L MCV 75 L MCH 24 L MCHC RDW 19.1 H Plt Count Lymph % (Auto) [place] % (Auto) Lymph # [place] # Baso # Seg Neutrophils % Seg Neuts % (Manual) 84.0 H Lymphocytes % (Manual) 6.0 L Monocytes % (Manual) 9.0 H Eosinophils % (Manual) Basophils % (Manual) Nucleated RBC % Seg Neutrophils # Seg Neutrophils # Man 24.7 H Lymphocytes # (Manual) Monocytes # (Manual) 2.6 H Eosinophils # (Manual) Basophils # (Manual) PT INR Fibrinogen dRVVT Confirm Interp Factor V Activity POC ABG pH 7.342 L POC ABG pCO2 POC ABG pO2 116 H ABG pO2 ABG HCO3 ABG Base Excess ABG Hemoglobin Oxyhemoglobin Sodium Potassium Chloride Carbon Dioxide BUN Creatinine Glucose POC Glucose 154 H Lactic Acid Calcium Phosphorus Magnesium Direct Bilirubin AST ALT Alkaline Phosphatase Lactate Dehydrogenase Troponin T C-Reactive Protein Total Protein Albumin Prealbumin Triglycerides Cholesterol LDL Cholesterol Direct HDL Cholesterol Urine pH Urine WBC (Auto) Urine Creatinine Urine Total Protein Fluid Total Protein Vancomycin Trough Rheumatoid Factor Complement C4 Miscellaneous Test Crossmatch 09/14/16 09/14/16 09/14/16 04:07 05:29 12:19 WBC RBC Hgb Hct MCV MCH MCHC RDW Plt Count Lymph % (Auto) [place] % (Auto) Lymph # [place] # Baso # Seg Neutrophils % Seg Neuts % (Manual) Lymphocytes % (Manual) Monocytes % (Manual) Eosinophils % (Manual) Basophils % (Manual) Nucleated RBC % Seg Neutrophils # Seg Neutrophils # Man Lymphocytes # (Manual) Monocytes # (Manual) Eosinophils # (Manual) Basophils # (Manual) PT INR Fibrinogen dRVVT Confirm Interp Factor V Activity POC ABG pH POC ABG pCO2 POC ABG pO2 ABG pO2 ABG HCO3 ABG Base Excess ABG Hemoglobin Oxyhemoglobin Sodium 136 L Potassium Chloride Carbon Dioxide 18 L BUN 121 H Creatinine 2.8 H Glucose 214 H POC Glucose 239 H 181 H Lactic Acid Calcium Phosphorus Magnesium Direct Bilirubin AST ALT Alkaline Phosphatase Lactate Dehydrogenase Troponin T C-Reactive Protein Total Protein Albumin Prealbumin Triglycerides Cholesterol LDL Cholesterol Direct HDL Cholesterol Urine pH Urine WBC (Auto) Urine Creatinine Urine Total Protein Fluid Total Protein Vancomycin Trough Rheumatoid Factor Complement C4 Miscellaneous Test Crossmatch 09/14/16 09/14/16 09/15/16 18:12 23:37 05:00 WBC 26.1 H RBC 3.05 L Hgb 7.2 L Hct 22.9 L MCV 75 L MCH 24 L MCHC RDW 19.0 H Plt Count Lymph % (Auto) [place] % (Auto) Lymph # [place] # Baso # Seg Neutrophils % Seg Neuts % (Manual) Lymphocytes % (Manual) Monocytes % (Manual) Eosinophils % (Manual) Basophils % (Manual) Nucleated RBC % Seg Neutrophils # Seg Neutrophils # Man Lymphocytes # (Manual) Monocytes # (Manual) Eosinophils # (Manual) Basophils # (Manual) PT INR Fibrinogen dRVVT Confirm Interp Factor V Activity POC ABG pH POC ABG pCO2 POC ABG pO2 ABG pO2 ABG HCO3 ABG Base Excess ABG Hemoglobin Oxyhemoglobin Sodium Potassium Chloride Carbon Dioxide BUN Creatinine Glucose POC Glucose 266 H 154 H Lactic Acid Calcium Phosphorus Magnesium Direct Bilirubin AST ALT Alkaline Phosphatase Lactate Dehydrogenase Troponin T C-Reactive Protein Total Protein Albumin Prealbumin Triglycerides Cholesterol LDL Cholesterol Direct HDL Cholesterol Urine pH Urine WBC (Auto) Urine Creatinine Urine Total Protein Fluid Total Protein Vancomycin Trough Rheumatoid Factor Complement C4 Miscellaneous Test Crossmatch 09/15/16 09/15/16 09/15/16 05:00 05:17 12:45 WBC RBC Hgb Hct MCV MCH MCHC RDW Plt Count Lymph % (Auto) [place] % (Auto) Lymph # [place] # Baso # Seg Neutrophils % Seg Neuts % (Manual) Lymphocytes % (Manual) Monocytes % (Manual) Eosinophils % (Manual) Basophils % (Manual) Nucleated RBC % Seg Neutrophils # Seg Neutrophils # Man Lymphocytes # (Manual) Monocytes # (Manual) Eosinophils # (Manual) Basophils # (Manual) PT INR Fibrinogen dRVVT Confirm Interp Factor V Activity POC ABG pH POC ABG pCO2 POC ABG pO2 ABG pO2 ABG HCO3 ABG Base Excess ABG Hemoglobin Oxyhemoglobin Sodium Potassium 5.2 H Chloride Carbon Dioxide 18 L BUN 139 H Creatinine 3.7 H Glucose 227 H POC Glucose 226 H 244 H Lactic Acid Calcium 8.3 L Phosphorus Magnesium Direct Bilirubin AST ALT Alkaline Phosphatase Lactate Dehydrogenase Troponin T C-Reactive Protein Total Protein Albumin Prealbumin Triglycerides Cholesterol LDL Cholesterol Direct HDL Cholesterol Urine pH Urine WBC (Auto) Urine Creatinine Urine Total Protein Fluid Total Protein Vancomycin Trough Rheumatoid Factor Complement C4 Miscellaneous Test Crossmatch 09/15/16 09/15/16 09/15/16 14:32 17:33 23:35 WBC RBC Hgb Hct MCV MCH MCHC RDW Plt Count Lymph % (Auto) [place] % (Auto) Lymph # [place] # Baso # Seg Neutrophils % Seg Neuts % (Manual) Lymphocytes % (Manual) Monocytes % (Manual) Eosinophils % (Manual) Basophils % (Manual) Nucleated RBC % Seg Neutrophils # Seg Neutrophils # Man Lymphocytes # (Manual) Monocytes # (Manual) Eosinophils # (Manual) Basophils # (Manual) PT INR Fibrinogen dRVVT Confirm Interp Factor V Activity POC ABG pH POC ABG pCO2 27.7 L POC ABG pO2 120 H ABG pO2 ABG HCO3 ABG Base Excess ABG Hemoglobin Oxyhemoglobin Sodium Potassium Chloride Carbon Dioxide BUN Creatinine Glucose POC Glucose 232 H 167 H Lactic Acid Calcium Phosphorus Magnesium Direct Bilirubin AST ALT Alkaline Phosphatase Lactate Dehydrogenase Troponin T C-Reactive Protein Total Protein Albumin Prealbumin Triglycerides Cholesterol LDL Cholesterol Direct HDL Cholesterol Urine pH Urine WBC (Auto) Urine Creatinine Urine Total Protein Fluid Total Protein Vancomycin Trough Rheumatoid Factor Complement C4 Miscellaneous Test Crossmatch 09/16/16 09/16/16 09/16/16 03:58 10:27 10:27 WBC 19.0 H RBC 2.77 L Hgb 6.5 L Hct 20.9 L MCV 76 L MCH 23 L MCHC RDW 19.3 H Plt Count Lymph % (Auto) 11.0 L [place] % (Auto) Lymph # [place] # 1.1 H Baso # Seg Neutrophils % 82.5 H Seg Neuts % (Manual) Lymphocytes % (Manual) Monocytes % (Manual) Eosinophils % (Manual) Basophils % (Manual) Nucleated RBC % Seg Neutrophils # 15.7 H Seg Neutrophils # Man Lymphocytes # (Manual) Monocytes # (Manual) Eosinophils # (Manual) Basophils # (Manual) PT INR Fibrinogen dRVVT Confirm Interp Factor V Activity POC ABG pH POC ABG pCO2 POC ABG pO2 ABG pO2 ABG HCO3 ABG Base Excess ABG Hemoglobin Oxyhemoglobin Sodium Potassium Chloride 109.3 H Carbon Dioxide 18 L BUN 139 H Creatinine 4.1 H Glucose 144 H POC Glucose 146 H Lactic Acid Calcium 8.1 L Phosphorus Magnesium Direct Bilirubin AST ALT Alkaline Phosphatase Lactate Dehydrogenase Troponin T C-Reactive Protein Total Protein Albumin Prealbumin Triglycerides Cholesterol LDL Cholesterol Direct HDL Cholesterol Urine pH Urine WBC (Auto) Urine Creatinine Urine Total Protein Fluid Total Protein Vancomycin Trough Rheumatoid Factor Complement C4 Miscellaneous Test Crossmatch 09/16/16 09/16/16 09/16/16 12:04 12:10 13:55 WBC RBC Hgb Hct MCV MCH MCHC RDW Plt Count Lymph % (Auto) [place] % (Auto) Lymph # [place] # Baso # Seg Neutrophils % Seg Neuts % (Manual) Lymphocytes % (Manual) Monocytes % (Manual) Eosinophils % (Manual) Basophils % (Manual) Nucleated RBC % Seg Neutrophils # Seg Neutrophils # Man Lymphocytes # (Manual) Monocytes # (Manual) Eosinophils # (Manual) Basophils # (Manual) PT INR Fibrinogen dRVVT Confirm Interp Factor V Activity POC ABG pH POC ABG pCO2 32.9 L POC ABG pO2 ABG pO2 ABG HCO3 ABG Base Excess ABG Hemoglobin Oxyhemoglobin Sodium Potassium Chloride Carbon Dioxide BUN Creatinine Glucose POC Glucose 185 H Lactic Acid Calcium Phosphorus Magnesium Direct Bilirubin AST ALT Alkaline Phosphatase Lactate Dehydrogenase Troponin T C-Reactive Protein Total Protein Albumin Prealbumin Triglycerides Cholesterol LDL Cholesterol Direct HDL Cholesterol Urine pH Urine WBC (Auto) Urine Creatinine Urine Total Protein Fluid Total Protein Vancomycin Trough Rheumatoid Factor Complement C4 Miscellaneous Test Crossmatch See Detail 09/16/16 09/16/16 09/16/16 17:55 19:19 23:48 WBC RBC Hgb Hct MCV MCH MCHC RDW Plt Count Lymph % (Auto) [place] % (Auto) Lymph # [place] # Baso # Seg Neutrophils % Seg Neuts % (Manual) Lymphocytes % (Manual) Monocytes % (Manual) Eosinophils % (Manual) Basophils % (Manual) Nucleated RBC % Seg Neutrophils # Seg Neutrophils # Man Lymphocytes # (Manual) Monocytes # (Manual) Eosinophils # (Manual) Basophils # (Manual) PT INR Fibrinogen dRVVT Confirm Interp Factor V Activity POC ABG pH POC ABG pCO2 POC ABG pO2 ABG pO2 ABG HCO3 ABG Base Excess ABG Hemoglobin Oxyhemoglobin Sodium Potassium Chloride Carbon Dioxide BUN Creatinine Glucose POC Glucose 222 H 107 H Lactic Acid Calcium Phosphorus Magnesium Direct Bilirubin AST ALT Alkaline Phosphatase Lactate Dehydrogenase Troponin T C-Reactive Protein Total Protein Albumin Prealbumin Triglycerides Cholesterol LDL Cholesterol Direct HDL Cholesterol Urine pH Urine WBC (Auto) Urine Creatinine 47.4 H Urine Total Protein 16 H Fluid Total Protein Vancomycin Trough Rheumatoid Factor Complement C4 Miscellaneous Test Crossmatch 09/17/16 09/17/16 09/17/16 03:45 03:45 04:55 WBC 19.6 H RBC 3.41 L Hgb 8.5 L Hct 26.7 L MCV 78 L MCH 25 L MCHC RDW 19.9 H Plt Count Lymph % (Auto) 9.3 L [place] % (Auto) Lymph # [place] # 1.2 H Baso # Seg Neutrophils % 83.9 H Seg Neuts % (Manual) Lymphocytes % (Manual) Monocytes % (Manual) Eosinophils % (Manual) Basophils % (Manual) Nucleated RBC % Seg Neutrophils # 16.4 H Seg Neutrophils # Man Lymphocytes # (Manual) Monocytes # (Manual) Eosinophils # (Manual) Basophils # (Manual) PT INR Fibrinogen dRVVT Confirm Interp Factor V Activity POC ABG pH POC ABG pCO2 POC ABG pO2 ABG pO2 ABG HCO3 ABG Base Excess ABG Hemoglobin Oxyhemoglobin Sodium 146 H Potassium 5.1 H Chloride 110.9 H Carbon Dioxide 16 L BUN 146 H Creatinine 4.0 H Glucose 108 H POC Glucose 133 H Lactic Acid Calcium Phosphorus Magnesium 3.00 H Direct Bilirubin AST ALT Alkaline Phosphatase Lactate Dehydrogenase Troponin T C-Reactive Protein Total Protein Albumin Prealbumin Triglycerides Cholesterol LDL Cholesterol Direct HDL Cholesterol Urine pH Urine WBC (Auto) Urine Creatinine Urine Total Protein Fluid Total Protein Vancomycin Trough Rheumatoid Factor Complement C4 Miscellaneous Test Crossmatch 09/17/16 09/17/16 09/17/16 11:15 17:33 23:47 WBC RBC Hgb Hct MCV MCH MCHC RDW Plt Count Lymph % (Auto) [place] % (Auto) Lymph # [place] # Baso # Seg Neutrophils % Seg Neuts % (Manual) Lymphocytes % (Manual) Monocytes % (Manual) Eosinophils % (Manual) Basophils % (Manual) Nucleated RBC % Seg Neutrophils # Seg Neutrophils # Man Lymphocytes # (Manual) Monocytes # (Manual) Eosinophils # (Manual) Basophils # (Manual) PT INR Fibrinogen dRVVT Confirm Interp Factor V Activity POC ABG pH POC ABG pCO2 POC ABG pO2 ABG pO2 ABG HCO3 ABG Base Excess ABG Hemoglobin Oxyhemoglobin Sodium Potassium Chloride Carbon Dioxide BUN Creatinine Glucose POC Glucose 176 H 246 H 148 H Lactic Acid Calcium Phosphorus Magnesium Direct Bilirubin AST ALT Alkaline Phosphatase Lactate Dehydrogenase Troponin T C-Reactive Protein Total Protein Albumin Prealbumin Triglycerides Cholesterol LDL Cholesterol Direct HDL Cholesterol Urine pH Urine WBC (Auto) Urine Creatinine Urine Total Protein Fluid Total Protein Vancomycin Trough Rheumatoid Factor Complement C4 Miscellaneous Test Crossmatch 09/18/16 09/18/16 09/18/16 05:33 08:31 08:31 WBC 18.0 H RBC 3.17 L Hgb 9.0 L Hct 25.7 L MCV MCH MCHC 35 H RDW 20.4 H Plt Count Lymph % (Auto) [place] % (Auto) Lymph # [place] # Baso # Seg Neutrophils % Seg Neuts % (Manual) Lymphocytes % (Manual) Monocytes % (Manual) Eosinophils % (Manual) Basophils % (Manual) Nucleated RBC % Seg Neutrophils # Seg Neutrophils # Man Lymphocytes # (Manual) Monocytes # (Manual) Eosinophils # (Manual) Basophils # (Manual) PT INR Fibrinogen dRVVT Confirm Interp Factor V Activity POC ABG pH POC ABG pCO2 POC ABG pO2 ABG pO2 ABG HCO3 ABG Base Excess ABG Hemoglobin Oxyhemoglobin Sodium Potassium Chloride Carbon Dioxide 15 L BUN 124 H Creatinine 3.8 H Glucose POC Glucose 120 H Lactic Acid Calcium 8.1 L Phosphorus Magnesium Direct Bilirubin AST ALT Alkaline Phosphatase Lactate Dehydrogenase Troponin T C-Reactive Protein Total Protein Albumin Prealbumin Triglycerides Cholesterol LDL Cholesterol Direct HDL Cholesterol Urine pH Urine WBC (Auto) Urine Creatinine Urine Total Protein Fluid Total Protein Vancomycin Trough Rheumatoid Factor Complement C4 Miscellaneous Test Crossmatch 09/18/16 09/18/16 09/18/16 12:03 15:34 17:50 WBC RBC Hgb Hct MCV MCH MCHC RDW Plt Count Lymph % (Auto) [place] % (Auto) Lymph # [place] # Baso # Seg Neutrophils % Seg Neuts % (Manual) Lymphocytes % (Manual) Monocytes % (Manual) Eosinophils % (Manual) Basophils % (Manual) Nucleated RBC % Seg Neutrophils # Seg Neutrophils # Man Lymphocytes # (Manual) Monocytes # (Manual) Eosinophils # (Manual) Basophils # (Manual) PT INR Fibrinogen dRVVT Confirm Interp Factor V Activity POC ABG pH POC ABG pCO2 25.7 L POC ABG pO2 66 L ABG pO2 ABG HCO3 ABG Base Excess ABG Hemoglobin Oxyhemoglobin Sodium Potassium Chloride Carbon Dioxide BUN Creatinine Glucose POC Glucose 156 H 220 H Lactic Acid Calcium Phosphorus Magnesium Direct Bilirubin AST ALT Alkaline Phosphatase Lactate Dehydrogenase Troponin T C-Reactive Protein Total Protein Albumin Prealbumin Triglycerides Cholesterol LDL Cholesterol Direct HDL Cholesterol Urine pH Urine WBC (Auto) Urine Creatinine Urine Total Protein Fluid Total Protein Vancomycin Trough Rheumatoid Factor Complement C4 Miscellaneous Test Crossmatch 09/19/16 09/19/16 09/19/16 06:21 09:50 09:50 WBC 17.1 H RBC 3.49 L Hgb 9.0 L Hct 28.1 L MCV MCH 26 L MCHC RDW 20.8 H Plt Count Lymph % (Auto) 11.5 L [place] % (Auto) 7.5 H Lymph # [place] # 1.3 H Baso # Seg Neutrophils % 79.8 H Seg Neuts % (Manual) Lymphocytes % (Manual) Monocytes % (Manual) Eosinophils % (Manual) Basophils % (Manual) Nucleated RBC % Seg Neutrophils # 13.7 H Seg Neutrophils # Man Lymphocytes # (Manual) Monocytes # (Manual) Eosinophils # (Manual) Basophils # (Manual) PT INR Fibrinogen dRVVT Confirm Interp Factor V Activity POC ABG pH POC ABG pCO2 POC ABG pO2 ABG pO2 ABG HCO3 ABG Base Excess ABG Hemoglobin Oxyhemoglobin Sodium Potassium Chloride 108.6 H Carbon Dioxide 15 L BUN 125 H Creatinine 4.1 H Glucose 124 H POC Glucose 119 H Lactic Acid Calcium Phosphorus Magnesium Direct Bilirubin AST ALT Alkaline Phosphatase Lactate Dehydrogenase Troponin T C-Reactive Protein Total Protein Albumin Prealbumin Triglycerides Cholesterol LDL Cholesterol Direct HDL Cholesterol Urine pH Urine WBC (Auto) Urine Creatinine Urine Total Protein Fluid Total Protein Vancomycin Trough Rheumatoid Factor Complement C4 Miscellaneous Test Crossmatch 09/19/16 09/19/16 09/19/16 11:25 17:53 23:36 WBC RBC Hgb Hct MCV MCH MCHC RDW Plt Count Lymph % (Auto) [place] % (Auto) Lymph # [place] # Baso # Seg Neutrophils % Seg Neuts % (Manual) Lymphocytes % (Manual) Monocytes % (Manual) Eosinophils % (Manual) Basophils % (Manual) Nucleated RBC % Seg Neutrophils # Seg Neutrophils # Man Lymphocytes # (Manual) Monocytes # (Manual) Eosinophils # (Manual) Basophils # (Manual) PT INR Fibrinogen dRVVT Confirm Interp Factor V Activity POC ABG pH POC ABG pCO2 POC ABG pO2 ABG pO2 ABG HCO3 ABG Base Excess ABG Hemoglobin Oxyhemoglobin Sodium Potassium Chloride Carbon Dioxide BUN Creatinine Glucose POC Glucose 160 H 245 H 121 H Lactic Acid Calcium Phosphorus Magnesium Direct Bilirubin AST ALT Alkaline Phosphatase Lactate Dehydrogenase Troponin T C-Reactive Protein Total Protein Albumin Prealbumin Triglycerides Cholesterol LDL Cholesterol Direct HDL Cholesterol Urine pH Urine WBC (Auto) Urine Creatinine Urine Total Protein Fluid Total Protein Vancomycin Trough Rheumatoid Factor Complement C4 Miscellaneous Test Crossmatch 09/20/16 09/20/16 09/20/16 04:10 04:10 04:10 WBC 17.0 H RBC 3.21 L Hgb 8.2 L Hct 25.5 L MCV MCH 26 L MCHC RDW 20.9 H Plt Count Lymph % (Auto) [place] % (Auto) Lymph # [place] # Baso # Seg Neutrophils % Seg Neuts % (Manual) Lymphocytes % (Manual) Monocytes % (Manual) Eosinophils % (Manual) Basophils % (Manual) Nucleated RBC % Seg Neutrophils # Seg Neutrophils # Man Lymphocytes # (Manual) Monocytes # (Manual) Eosinophils # (Manual) Basophils # (Manual) PT INR Fibrinogen dRVVT Confirm Interp Factor V Activity POC ABG pH POC ABG pCO2 POC ABG pO2 ABG pO2 ABG HCO3 ABG Base Excess ABG Hemoglobin Oxyhemoglobin Sodium Potassium Chloride 111.0 H Carbon Dioxide 16 L BUN 129 H Creatinine 3.7 H Glucose 115 H POC Glucose Lactic Acid Calcium 8.2 L Phosphorus Magnesium Direct Bilirubin AST ALT Alkaline Phosphatase Lactate Dehydrogenase Troponin T C-Reactive Protein Total Protein Albumin Prealbumin Triglycerides 243 H Cholesterol LDL Cholesterol Direct HDL Cholesterol Urine pH Urine WBC (Auto) Urine Creatinine Urine Total Protein Fluid Total Protein Vancomycin Trough Rheumatoid Factor Complement C4 Miscellaneous Test Crossmatch 09/20/16 09/20/16 09/20/16 05:40 11:52 16:50 WBC RBC Hgb Hct MCV MCH MCHC RDW Plt Count Lymph % (Auto) [place] % (Auto) Lymph # [place] # Baso # Seg Neutrophils % Seg Neuts % (Manual) Lymphocytes % (Manual) Monocytes % (Manual) Eosinophils % (Manual) Basophils % (Manual) Nucleated RBC % Seg Neutrophils # Seg Neutrophils # Man Lymphocytes # (Manual) Monocytes # (Manual) Eosinophils # (Manual) Basophils # (Manual) PT INR Fibrinogen dRVVT Confirm Interp Factor V Activity POC ABG pH POC ABG pCO2 POC ABG pO2 ABG pO2 ABG HCO3 ABG Base Excess ABG Hemoglobin Oxyhemoglobin Sodium Potassium Chloride Carbon Dioxide BUN Creatinine Glucose POC Glucose 131 H 183 H 236 H Lactic Acid Calcium Phosphorus Magnesium Direct Bilirubin AST ALT Alkaline Phosphatase Lactate Dehydrogenase Troponin T C-Reactive Protein Total Protein Albumin Prealbumin Triglycerides Cholesterol LDL Cholesterol Direct HDL Cholesterol Urine pH Urine WBC (Auto) Urine Creatinine Urine Total Protein Fluid Total Protein Vancomycin Trough Rheumatoid Factor Complement C4 Miscellaneous Test Crossmatch 09/20/16 09/21/16 09/21/16 23:51 03:30 04:44 WBC RBC Hgb Hct MCV MCH MCHC RDW Plt Count Lymph % (Auto) [place] % (Auto) Lymph # [place] # Baso # Seg Neutrophils % Seg Neuts % (Manual) Lymphocytes % (Manual) Monocytes % (Manual) Eosinophils % (Manual) Basophils % (Manual) Nucleated RBC % Seg Neutrophils # Seg Neutrophils # Man Lymphocytes # (Manual) Monocytes # (Manual) Eosinophils # (Manual) Basophils # (Manual) PT INR Fibrinogen dRVVT Confirm Interp Factor V Activity POC ABG pH POC ABG pCO2 POC ABG pO2 ABG pO2 ABG HCO3 ABG Base Excess ABG Hemoglobin Oxyhemoglobin Sodium Potassium Chloride Carbon Dioxide BUN Creatinine Glucose POC Glucose 114 H 141 H Lactic Acid Calcium Phosphorus Magnesium 2.70 H Direct Bilirubin AST ALT Alkaline Phosphatase Lactate Dehydrogenase Troponin T C-Reactive Protein Total Protein Albumin Prealbumin Triglycerides Cholesterol LDL Cholesterol Direct HDL Cholesterol Urine pH Urine WBC (Auto) Urine Creatinine Urine Total Protein Fluid Total Protein Vancomycin Trough Rheumatoid Factor Complement C4 Miscellaneous Test Crossmatch 09/21/16 09/21/16 09/21/16 07:45 07:45 10:01 WBC 13.8 H RBC 2.94 L Hgb 7.5 L Hct 23.5 L MCV MCH 26 L MCHC RDW 21.2 H Plt Count Lymph % (Auto) 6.9 L [place] % (Auto) 9.4 H Lymph # 0.9 L [place] # 1.3 H Baso # Seg Neutrophils % 83.2 H Seg Neuts % (Manual) Lymphocytes % (Manual) Monocytes % (Manual) Eosinophils % (Manual) Basophils % (Manual) Nucleated RBC % Seg Neutrophils # 11.5 H Seg Neutrophils # Man Lymphocytes # (Manual) Monocytes # (Manual) Eosinophils # (Manual) Basophils # (Manual) PT INR Fibrinogen dRVVT Confirm Interp Factor V Activity POC ABG pH 7.308 L POC ABG pCO2 31.9 L POC ABG pO2 148 H ABG pO2 ABG HCO3 ABG Base Excess ABG Hemoglobin Oxyhemoglobin Sodium 147 H Potassium Chloride 114.2 H Carbon Dioxide 15 L BUN 120 H Creatinine 3.9 H Glucose 156 H POC Glucose Lactic Acid Calcium 8.2 L Phosphorus Magnesium Direct Bilirubin AST ALT Alkaline Phosphatase Lactate Dehydrogenase Troponin T C-Reactive Protein Total Protein Albumin Prealbumin Triglycerides Cholesterol LDL Cholesterol Direct HDL Cholesterol Urine pH Urine WBC (Auto) Urine Creatinine Urine Total Protein Fluid Total Protein Vancomycin Trough Rheumatoid Factor Complement C4 Miscellaneous Test Crossmatch 09/21/16 09/21/16 09/21/16 12:00 12:03 13:00 WBC RBC Hgb Hct MCV MCH MCHC RDW Plt Count Lymph % (Auto) [place] % (Auto) Lymph # [place] # Baso # Seg Neutrophils % Seg Neuts % (Manual) Lymphocytes % (Manual) Monocytes % (Manual) Eosinophils % (Manual) Basophils % (Manual) Nucleated RBC % Seg Neutrophils # Seg Neutrophils # Man Lymphocytes # (Manual) Monocytes # (Manual) Eosinophils # (Manual) Basophils # (Manual) PT INR Fibrinogen dRVVT Confirm Interp Factor V Activity POC ABG pH POC ABG pCO2 POC ABG pO2 ABG pO2 ABG HCO3 ABG Base Excess ABG Hemoglobin Oxyhemoglobin Sodium Potassium Chloride Carbon Dioxide BUN Creatinine Glucose POC Glucose 163 H Lactic Acid Calcium Phosphorus Magnesium Direct Bilirubin AST ALT Alkaline Phosphatase Lactate Dehydrogenase Troponin T C-Reactive Protein Total Protein Albumin Prealbumin Triglycerides Cholesterol LDL Cholesterol Direct HDL Cholesterol Urine pH Urine WBC (Auto) Urine Creatinine 54.8 H Urine Total Protein Fluid Total Protein Vancomycin Trough 2.3 L Rheumatoid Factor Complement C4 Miscellaneous Test Crossmatch 09/21/16 09/21/16 09/22/16 16:51 23:17 06:27 WBC RBC Hgb Hct MCV MCH MCHC RDW Plt Count Lymph % (Auto) [place] % (Auto) Lymph # [place] # Baso # Seg Neutrophils % Seg Neuts % (Manual) Lymphocytes % (Manual) Monocytes % (Manual) Eosinophils % (Manual) Basophils % (Manual) Nucleated RBC % Seg Neutrophils # Seg Neutrophils # Man Lymphocytes # (Manual) Monocytes # (Manual) Eosinophils # (Manual) Basophils # (Manual) PT INR Fibrinogen dRVVT Confirm Interp Factor V Activity POC ABG pH POC ABG pCO2 POC ABG pO2 ABG pO2 ABG HCO3 ABG Base Excess ABG Hemoglobin Oxyhemoglobin Sodium Potassium Chloride Carbon Dioxide BUN Creatinine Glucose POC Glucose 206 H 114 H 115 H Lactic Acid Calcium Phosphorus Magnesium Direct Bilirubin AST ALT Alkaline Phosphatase Lactate Dehydrogenase Troponin T C-Reactive Protein Total Protein Albumin Prealbumin Triglycerides Cholesterol LDL Cholesterol Direct HDL Cholesterol Urine pH Urine WBC (Auto) Urine Creatinine Urine Total Protein Fluid Total Protein Vancomycin Trough Rheumatoid Factor Complement C4 Miscellaneous Test Crossmatch 09/22/16 09/22/16 09/22/16 07:50 07:50 12:00 WBC 17.8 H RBC 3.04 L Hgb 8.0 L Hct 24.7 L MCV MCH 26 L MCHC RDW 21.6 H Plt Count Lymph % (Auto) [place] % (Auto) Lymph # [place] # Baso # Seg Neutrophils % Seg Neuts % (Manual) Lymphocytes % (Manual) Monocytes % (Manual) Eosinophils % (Manual) Basophils % (Manual) Nucleated RBC % Seg Neutrophils # Seg Neutrophils # Man Lymphocytes # (Manual) Monocytes # (Manual) Eosinophils # (Manual) Basophils # (Manual) PT INR Fibrinogen dRVVT Confirm Interp Factor V Activity POC ABG pH POC ABG pCO2 POC ABG pO2 ABG pO2 ABG HCO3 ABG Base Excess ABG Hemoglobin Oxyhemoglobin Sodium 150 H Potassium Chloride 118.2 H Carbon Dioxide 14 L BUN 111 H Creatinine 3.7 H Glucose 157 H POC Glucose 183 H Lactic Acid Calcium Phosphorus Magnesium Direct Bilirubin AST ALT Alkaline Phosphatase Lactate Dehydrogenase Troponin T C-Reactive Protein Total Protein Albumin Prealbumin Triglycerides Cholesterol LDL Cholesterol Direct HDL Cholesterol Urine pH Urine WBC (Auto) Urine Creatinine Urine Total Protein Fluid Total Protein Vancomycin Trough Rheumatoid Factor Complement C4 Miscellaneous Test Crossmatch 09/22/16 09/22/16 09/23/16 17:29 23:10 05:00 WBC 19.2 H RBC 3.13 L Hgb 8.0 L Hct 25.2 L MCV MCH 26 L MCHC RDW 22.1 H Plt Count Lymph % (Auto) [place] % (Auto) Lymph # [place] # Baso # Seg Neutrophils % Seg Neuts % (Manual) 92.0 H Lymphocytes % (Manual) 3.0 L Monocytes % (Manual) Eosinophils % (Manual) Basophils % (Manual) Nucleated RBC % Seg Neutrophils # Seg Neutrophils # Man 17.7 H Lymphocytes # (Manual) 0.6 L Monocytes # (Manual) Eosinophils # (Manual) Basophils # (Manual) PT INR Fibrinogen dRVVT Confirm Interp Factor V Activity POC ABG pH POC ABG pCO2 POC ABG pO2 ABG pO2 ABG HCO3 ABG Base Excess ABG Hemoglobin Oxyhemoglobin Sodium Potassium Chloride Carbon Dioxide BUN Creatinine Glucose POC Glucose 197 H 169 H Lactic Acid Calcium Phosphorus Magnesium Direct Bilirubin AST ALT Alkaline Phosphatase Lactate Dehydrogenase Troponin T C-Reactive Protein Total Protein Albumin Prealbumin Triglycerides Cholesterol LDL Cholesterol Direct HDL Cholesterol Urine pH Urine WBC (Auto) Urine Creatinine Urine Total Protein Fluid Total Protein Vancomycin Trough Rheumatoid Factor Complement C4 Miscellaneous Test Crossmatch 09/23/16 09/23/16 09/23/16 05:00 05:00 05:10 WBC RBC Hgb Hct MCV MCH MCHC RDW Plt Count Lymph % (Auto) [place] % (Auto) Lymph # [place] # Baso # Seg Neutrophils % Seg Neuts % (Manual) Lymphocytes % (Manual) Monocytes % (Manual) Eosinophils % (Manual) Basophils % (Manual) Nucleated RBC % Seg Neutrophils # Seg Neutrophils # Man Lymphocytes # (Manual) Monocytes # (Manual) Eosinophils # (Manual) Basophils # (Manual) PT INR Fibrinogen dRVVT Confirm Interp Factor V Activity POC ABG pH POC ABG pCO2 POC ABG pO2 ABG pO2 ABG HCO3 ABG Base Excess ABG Hemoglobin Oxyhemoglobin Sodium 147 H Potassium 3.2 L Chloride 115.7 H Carbon Dioxide 13 L BUN 111 H Creatinine 3.8 H Glucose 194 H POC Glucose 188 H Lactic Acid Calcium 7.3 L D Phosphorus Magnesium Direct Bilirubin AST ALT Alkaline Phosphatase Lactate Dehydrogenase Troponin T C-Reactive Protein 3.20 H Total Protein Albumin Prealbumin Triglycerides Cholesterol LDL Cholesterol Direct HDL Cholesterol Urine pH Urine WBC (Auto) Urine Creatinine Urine Total Protein Fluid Total Protein Vancomycin Trough Rheumatoid Factor Complement C4 Miscellaneous Test Crossmatch 09/23/16 09/23/16 09/23/16 11:37 12:29 18:01 WBC RBC Hgb Hct MCV MCH MCHC RDW Plt Count Lymph % (Auto) [place] % (Auto) Lymph # [place] # Baso # Seg Neutrophils % Seg Neuts % (Manual) Lymphocytes % (Manual) Monocytes % (Manual) Eosinophils % (Manual) Basophils % (Manual) Nucleated RBC % Seg Neutrophils # Seg Neutrophils # Man Lymphocytes # (Manual) Monocytes # (Manual) Eosinophils # (Manual) Basophils # (Manual) PT INR Fibrinogen dRVVT Confirm Interp Factor V Activity POC ABG pH POC ABG pCO2 18.9 L POC ABG pO2 143 H ABG pO2 ABG HCO3 ABG Base Excess ABG Hemoglobin Oxyhemoglobin Sodium Potassium Chloride Carbon Dioxide BUN Creatinine Glucose POC Glucose 153 H 108 H Lactic Acid Calcium Phosphorus Magnesium Direct Bilirubin AST ALT Alkaline Phosphatase Lactate Dehydrogenase Troponin T C-Reactive Protein Total Protein Albumin Prealbumin Triglycerides Cholesterol LDL Cholesterol Direct HDL Cholesterol Urine pH Urine WBC (Auto) Urine Creatinine Urine Total Protein Fluid Total Protein Vancomycin Trough Rheumatoid Factor Complement C4 Miscellaneous Test Crossmatch 09/23/16 09/23/16 09/24/16 21:19 23:43 05:16 WBC RBC Hgb Hct MCV MCH MCHC RDW Plt Count Lymph % (Auto) [place] % (Auto) Lymph # [place] # Baso # Seg Neutrophils % Seg Neuts % (Manual) Lymphocytes % (Manual) Monocytes % (Manual) Eosinophils % (Manual) Basophils % (Manual) Nucleated RBC % Seg Neutrophils # Seg Neutrophils # Man Lymphocytes # (Manual) Monocytes # (Manual) Eosinophils # (Manual) Basophils # (Manual) PT INR Fibrinogen dRVVT Confirm Interp Factor V Activity POC ABG pH POC ABG pCO2 17.3 L POC ABG pO2 112 H ABG pO2 ABG HCO3 ABG Base Excess ABG Hemoglobin Oxyhemoglobin Sodium Potassium Chloride Carbon Dioxide BUN Creatinine Glucose POC Glucose 143 H 164 H Lactic Acid Calcium Phosphorus Magnesium Direct Bilirubin AST ALT Alkaline Phosphatase Lactate Dehydrogenase Troponin T C-Reactive Protein Total Protein Albumin Prealbumin Triglycerides Cholesterol LDL Cholesterol Direct HDL Cholesterol Urine pH Urine WBC (Auto) Urine Creatinine Urine Total Protein Fluid Total Protein Vancomycin Trough Rheumatoid Factor Complement C4 Miscellaneous Test Crossmatch 09/24/16 09/24/16 09/24/16 05:21 11:58 17:06 WBC RBC Hgb Hct MCV MCH MCHC RDW Plt Count Lymph % (Auto) [place] % (Auto) Lymph # [place] # Baso # Seg Neutrophils % Seg Neuts % (Manual) Lymphocytes % (Manual) Monocytes % (Manual) Eosinophils % (Manual) Basophils % (Manual) Nucleated RBC % Seg Neutrophils # Seg Neutrophils # Man Lymphocytes # (Manual) Monocytes # (Manual) Eosinophils # (Manual) Basophils # (Manual) PT INR Fibrinogen dRVVT Confirm Interp Factor V Activity POC ABG pH POC ABG pCO2 POC ABG pO2 ABG pO2 ABG HCO3 ABG Base Excess ABG Hemoglobin Oxyhemoglobin Sodium Potassium Chloride Carbon Dioxide 10 L BUN 103 H Creatinine 4.3 H Glucose 163 H POC Glucose 173 H 167 H Lactic Acid Calcium 6.5 L Phosphorus Magnesium Direct Bilirubin AST ALT Alkaline Phosphatase Lactate Dehydrogenase Troponin T C-Reactive Protein Total Protein Albumin Prealbumin Triglycerides Cholesterol LDL Cholesterol Direct HDL Cholesterol Urine pH Urine WBC (Auto) Urine Creatinine Urine Total Protein Fluid Total Protein Vancomycin Trough Rheumatoid Factor Complement C4 Miscellaneous Test Crossmatch 09/24/16 09/24/16 09/24/16 20:15 21:02 23:48 WBC RBC Hgb Hct MCV MCH MCHC RDW Plt Count Lymph % (Auto) [place] % (Auto) Lymph # [place] # Baso # Seg Neutrophils % Seg Neuts % (Manual) Lymphocytes % (Manual) Monocytes % (Manual) Eosinophils % (Manual) Basophils % (Manual) Nucleated RBC % Seg Neutrophils # Seg Neutrophils # Man Lymphocytes # (Manual) Monocytes # (Manual) Eosinophils # (Manual) Basophils # (Manual) PT INR Fibrinogen dRVVT Confirm Interp Factor V Activity POC ABG pH 7.288 L POC ABG pCO2 30.2 L 21.5 L POC ABG pO2 32 L 39 L ABG pO2 ABG HCO3 ABG Base Excess ABG Hemoglobin Oxyhemoglobin Sodium Potassium Chloride Carbon Dioxide BUN Creatinine Glucose POC Glucose 109 H Lactic Acid Calcium Phosphorus Magnesium Direct Bilirubin AST ALT Alkaline Phosphatase Lactate Dehydrogenase Troponin T C-Reactive Protein Total Protein Albumin Prealbumin Triglycerides Cholesterol LDL Cholesterol Direct HDL Cholesterol Urine pH Urine WBC (Auto) Urine Creatinine Urine Total Protein Fluid Total Protein Vancomycin Trough Rheumatoid Factor Complement C4 Miscellaneous Test Crossmatch 09/25/16 09/25/16 09/25/16 04:20 04:20 04:20 WBC RBC 2.58 L Hgb 7.0 L Hct 21.0 L MCV MCH 27 L MCHC RDW 23.8 H Plt Count Lymph % (Auto) [place] % (Auto) Lymph # [place] # Baso # Seg Neutrophils % Seg Neuts % (Manual) Lymphocytes % (Manual) 12.0 L Monocytes % (Manual) Eosinophils % (Manual) 7.0 H Basophils % (Manual) 2.0 H Nucleated RBC % Seg Neutrophils # Seg Neutrophils # Man Lymphocytes # (Manual) 0.9 L Monocytes # (Manual) Eosinophils # (Manual) 0.5 H Basophils # (Manual) PT INR Fibrinogen dRVVT Confirm Interp Factor V Activity POC ABG pH POC ABG pCO2 POC ABG pO2 ABG pO2 ABG HCO3 ABG Base Excess ABG Hemoglobin Oxyhemoglobin Sodium Potassium Chloride Carbon Dioxide 15 L BUN 72 H Creatinine 3.8 H Glucose POC Glucose Lactic Acid Calcium 6.0 L Phosphorus 4.60 H Magnesium 1.60 L Direct Bilirubin AST ALT Alkaline Phosphatase Lactate Dehydrogenase Troponin T C-Reactive Protein Total Protein Albumin Prealbumin Triglycerides Cholesterol LDL Cholesterol Direct HDL Cholesterol Urine pH Urine WBC (Auto) Urine Creatinine Urine Total Protein Fluid Total Protein Vancomycin Trough Rheumatoid Factor Complement C4 Miscellaneous Test Crossmatch 09/25/16 09/25/16 09/25/16 04:57 08:02 10:30 WBC RBC Hgb Hct MCV MCH MCHC RDW Plt Count Lymph % (Auto) [place] % (Auto) Lymph # [place] # Baso # Seg Neutrophils % Seg Neuts % (Manual) Lymphocytes % (Manual) Monocytes % (Manual) Eosinophils % (Manual) Basophils % (Manual) Nucleated RBC % Seg Neutrophils # Seg Neutrophils # Man Lymphocytes # (Manual) Monocytes # (Manual) Eosinophils # (Manual) Basophils # (Manual) PT INR Fibrinogen dRVVT Confirm Interp Factor V Activity POC ABG pH POC ABG pCO2 24.7 L POC ABG pO2 152 H ABG pO2 ABG HCO3 ABG Base Excess ABG Hemoglobin Oxyhemoglobin Sodium Potassium Chloride Carbon Dioxide BUN Creatinine Glucose POC Glucose 113 H Lactic Acid Calcium Phosphorus Magnesium Direct Bilirubin AST ALT Alkaline Phosphatase Lactate Dehydrogenase Troponin T C-Reactive Protein Total Protein Albumin Prealbumin Triglycerides Cholesterol LDL Cholesterol Direct HDL Cholesterol Urine pH Urine WBC (Auto) Urine Creatinine Urine Total Protein Fluid Total Protein Vancomycin Trough Rheumatoid Factor Complement C4 Miscellaneous Test Crossmatch See Detail 09/25/16 09/25/16 09/25/16 12:05 17:44 23:47 WBC RBC Hgb Hct MCV MCH MCHC RDW Plt Count Lymph % (Auto) [place] % (Auto) Lymph # [place] # Baso # Seg Neutrophils % Seg Neuts % (Manual) Lymphocytes % (Manual) Monocytes % (Manual) Eosinophils % (Manual) Basophils % (Manual) Nucleated RBC % Seg Neutrophils # Seg Neutrophils # Man Lymphocytes # (Manual) Monocytes # (Manual) Eosinophils # (Manual) Basophils # (Manual) PT INR Fibrinogen dRVVT Confirm Interp Factor V Activity POC ABG pH POC ABG pCO2 POC ABG pO2 ABG pO2 ABG HCO3 ABG Base Excess ABG Hemoglobin Oxyhemoglobin Sodium Potassium Chloride Carbon Dioxide BUN Creatinine Glucose POC Glucose 117 H 119 H 150 H Lactic Acid Calcium Phosphorus Magnesium Direct Bilirubin AST ALT Alkaline Phosphatase Lactate Dehydrogenase Troponin T C-Reactive Protein Total Protein Albumin Prealbumin Triglycerides Cholesterol LDL Cholesterol Direct HDL Cholesterol Urine pH Urine WBC (Auto) Urine Creatinine Urine Total Protein Fluid Total Protein Vancomycin Trough Rheumatoid Factor Complement C4 Miscellaneous Test Crossmatch 09/26/16 09/26/16 09/26/16 04:25 04:25 04:25 WBC RBC 2.65 L Hgb 7.4 L Hct 21.6 L MCV MCH MCHC RDW 22.5 H Plt Count Lymph % (Auto) [place] % (Auto) Lymph # [place] # Baso # Seg Neutrophils % Seg Neuts % (Manual) Lymphocytes % (Manual) 6.0 L Monocytes % (Manual) Eosinophils % (Manual) 11.0 H Basophils % (Manual) Nucleated RBC % Seg Neutrophils # Seg Neutrophils # Man Lymphocytes # (Manual) 0.4 L Monocytes # (Manual) Eosinophils # (Manual) 0.6 H Basophils # (Manual) PT INR Fibrinogen dRVVT Confirm Interp Factor V Activity POC ABG pH POC ABG pCO2 POC ABG pO2 ABG pO2 ABG HCO3 ABG Base Excess ABG Hemoglobin Oxyhemoglobin Sodium Potassium Chloride 97.0 L Carbon Dioxide 19 L BUN 43 H Creatinine 2.6 H Glucose 130 H POC Glucose Lactic Acid 4.40 H* Calcium 6.7 L Phosphorus Magnesium Direct Bilirubin AST ALT Alkaline Phosphatase Lactate Dehydrogenase Troponin T C-Reactive Protein Total Protein Albumin Prealbumin Triglycerides Cholesterol LDL Cholesterol Direct HDL Cholesterol Urine pH Urine WBC (Auto) Urine Creatinine Urine Total Protein Fluid Total Protein Vancomycin Trough Rheumatoid Factor Complement C4 Miscellaneous Test Crossmatch 09/26/16 09/26/16 09/26/16 05:20 11:44 12:12 WBC RBC Hgb Hct MCV MCH MCHC RDW Plt Count Lymph % (Auto) [place] % (Auto) Lymph # [place] # Baso # Seg Neutrophils % Seg Neuts % (Manual) Lymphocytes % (Manual) Monocytes % (Manual) Eosinophils % (Manual) Basophils % (Manual) Nucleated RBC % Seg Neutrophils # Seg Neutrophils # Man Lymphocytes # (Manual) Monocytes # (Manual) Eosinophils # (Manual) Basophils # (Manual) PT INR Fibrinogen dRVVT Confirm Interp Factor V Activity POC ABG pH POC ABG pCO2 27.0 L POC ABG pO2 69 L ABG pO2 ABG HCO3 ABG Base Excess ABG Hemoglobin Oxyhemoglobin Sodium Potassium Chloride Carbon Dioxide BUN Creatinine Glucose POC Glucose 121 H 128 H Lactic Acid Calcium Phosphorus Magnesium Direct Bilirubin AST ALT Alkaline Phosphatase Lactate Dehydrogenase Troponin T C-Reactive Protein Total Protein Albumin Prealbumin Triglycerides Cholesterol LDL Cholesterol Direct HDL Cholesterol Urine pH Urine WBC (Auto) Urine Creatinine Urine Total Protein Fluid Total Protein Vancomycin Trough Rheumatoid Factor Complement C4 Miscellaneous Test Crossmatch 09/26/16 09/26/16 09/27/16 18:31 23:40 08:20 WBC RBC Hgb Hct MCV MCH MCHC RDW Plt Count Lymph % (Auto) [place] % (Auto) Lymph # [place] # Baso # Seg Neutrophils % Seg Neuts % (Manual) Lymphocytes % (Manual) Monocytes % (Manual) Eosinophils % (Manual) Basophils % (Manual) Nucleated RBC % Seg Neutrophils # Seg Neutrophils # Man Lymphocytes # (Manual) Monocytes # (Manual) Eosinophils # (Manual) Basophils # (Manual) PT INR Fibrinogen dRVVT Confirm Interp Factor V Activity POC ABG pH POC ABG pCO2 POC ABG pO2 ABG pO2 ABG HCO3 ABG Base Excess ABG Hemoglobin Oxyhemoglobin Sodium Potassium Chloride Carbon Dioxide BUN Creatinine Glucose POC Glucose 120 H 133 H Lactic Acid 4.10 H* Calcium Phosphorus Magnesium Direct Bilirubin AST ALT Alkaline Phosphatase Lactate Dehydrogenase Troponin T C-Reactive Protein Total Protein Albumin Prealbumin Triglycerides Cholesterol LDL Cholesterol Direct HDL Cholesterol Urine pH Urine WBC (Auto) Urine Creatinine Urine Total Protein Fluid Total Protein Vancomycin Trough Rheumatoid Factor Complement C4 Miscellaneous Test Crossmatch 09/27/16 09/27/16 09/27/16 11:23 15:00 18:15 WBC RBC Hgb Hct MCV MCH MCHC RDW Plt Count Lymph % (Auto) [place] % (Auto) Lymph # [place] # Baso # Seg Neutrophils % Seg Neuts % (Manual) Lymphocytes % (Manual) Monocytes % (Manual) Eosinophils % (Manual) Basophils % (Manual) Nucleated RBC % Seg Neutrophils # Seg Neutrophils # Man Lymphocytes # (Manual) Monocytes # (Manual) Eosinophils # (Manual) Basophils # (Manual) PT INR Fibrinogen dRVVT Confirm Interp Factor V Activity POC ABG pH 7.459 H POC ABG pCO2 27.1 L POC ABG pO2 140 H ABG pO2 ABG HCO3 ABG Base Excess ABG Hemoglobin Oxyhemoglobin Sodium Potassium Chloride Carbon Dioxide BUN Creatinine Glucose POC Glucose 114 H 127 H Lactic Acid Calcium Phosphorus Magnesium Direct Bilirubin AST ALT Alkaline Phosphatase Lactate Dehydrogenase Troponin T C-Reactive Protein Total Protein Albumin Prealbumin Triglycerides Cholesterol LDL Cholesterol Direct HDL Cholesterol Urine pH Urine WBC (Auto) Urine Creatinine Urine Total Protein Fluid Total Protein Vancomycin Trough Rheumatoid Factor Complement C4 Miscellaneous Test Crossmatch 09/27/16 09/27/16 09/28/16 Unknown Unknown 03:45 WBC RBC 2.49 L Hgb 6.8 L Hct 20.7 L MCV MCH 27 L MCHC RDW 22.1 H Plt Count Lymph % (Auto) [place] % (Auto) Lymph # [place] # Baso # Seg Neutrophils % Seg Neuts % (Manual) 32.0 L Lymphocytes % (Manual) 12.0 L Monocytes % (Manual) 11.0 H Eosinophils % (Manual) 10.0 H Basophils % (Manual) Nucleated RBC % Seg Neutrophils # Seg Neutrophils # Man Lymphocytes # (Manual) 1.0 L Monocytes # (Manual) 0.9 H Eosinophils # (Manual) 0.8 H Basophils # (Manual) PT INR Fibrinogen dRVVT Confirm Interp Factor V Activity POC ABG pH POC ABG pCO2 POC ABG pO2 ABG pO2 ABG HCO3 ABG Base Excess ABG Hemoglobin Oxyhemoglobin Sodium 135 L 135 L Potassium 3.5 L Chloride 93.6 L 94.4 L Carbon Dioxide 17 L 21 L BUN 45 H 28 H Creatinine 3.3 H 2.5 H Glucose 106 H POC Glucose Lactic Acid Calcium 7.3 L 7.1 L Phosphorus Magnesium Direct Bilirubin AST ALT Alkaline Phosphatase Lactate Dehydrogenase Troponin T C-Reactive Protein Total Protein Albumin Prealbumin Triglycerides Cholesterol LDL Cholesterol Direct HDL Cholesterol Urine pH Urine WBC (Auto) Urine Creatinine Urine Total Protein Fluid Total Protein Vancomycin Trough Rheumatoid Factor Complement C4 Miscellaneous Test Crossmatch 09/28/16 09/28/16 09/28/16 03:45 07:25 11:58 WBC 13.3 H RBC 3.01 L Hgb 8.4 L Hct 25.0 L MCV MCH MCHC RDW 20.5 H Plt Count 128 L Lymph % (Auto) [place] % (Auto) Lymph # [place] # Baso # Seg Neutrophils % Seg Neuts % (Manual) Lymphocytes % (Manual) 7.0 L Monocytes % (Manual) Eosinophils % (Manual) 6.0 H Basophils % (Manual) Nucleated RBC % Seg Neutrophils # Seg Neutrophils # Man Lymphocytes # (Manual) 0.9 L Monocytes # (Manual) Eosinophils # (Manual) 0.8 H Basophils # (Manual) PT INR Fibrinogen dRVVT Confirm Interp Factor V Activity POC ABG pH POC ABG pCO2 POC ABG pO2 ABG pO2 ABG HCO3 ABG Base Excess ABG Hemoglobin Oxyhemoglobin Sodium Potassium Chloride Carbon Dioxide BUN Creatinine Glucose POC Glucose 121 H Lactic Acid 4.50 H* Calcium Phosphorus Magnesium Direct Bilirubin AST ALT Alkaline Phosphatase Lactate Dehydrogenase Troponin T C-Reactive Protein Total Protein Albumin Prealbumin Triglycerides Cholesterol LDL Cholesterol Direct HDL Cholesterol Urine pH Urine WBC (Auto) Urine Creatinine Urine Total Protein Fluid Total Protein Vancomycin Trough Rheumatoid Factor Complement C4 Miscellaneous Test Crossmatch 09/29/16 09/29/16 09/29/16 06:45 06:45 06:45 WBC 14.9 H RBC 2.74 L Hgb 7.6 L Hct 23.2 L MCV MCH MCHC RDW 20.5 H Plt Count 81 L Lymph % (Auto) [place] % (Auto) Lymph # [place] # Baso # Seg Neutrophils % Seg Neuts % (Manual) 81.0 H Lymphocytes % (Manual) 4.0 L Monocytes % (Manual) Eosinophils % (Manual) Basophils % (Manual) Nucleated RBC % Seg Neutrophils # Seg Neutrophils # Man 12.1 H Lymphocytes # (Manual) 0.6 L Monocytes # (Manual) Eosinophils # (Manual) Basophils # (Manual) PT INR Fibrinogen dRVVT Confirm Interp Factor V Activity POC ABG pH POC ABG pCO2 POC ABG pO2 ABG pO2 ABG HCO3 ABG Base Excess ABG Hemoglobin Oxyhemoglobin Sodium 133 L Potassium 3.4 L Chloride 92.5 L Carbon Dioxide 21 L BUN 33 H Creatinine 3.0 H Glucose POC Glucose Lactic Acid Calcium 6.6 L Phosphorus Magnesium 1.40 L Direct Bilirubin 0.9 H AST ALT Alkaline Phosphatase Lactate Dehydrogenase Troponin T C-Reactive Protein Total Protein 4.3 L Albumin 1.3 L Prealbumin Triglycerides Cholesterol LDL Cholesterol Direct HDL Cholesterol Urine pH Urine WBC (Auto) Urine Creatinine Urine Total Protein Fluid Total Protein Vancomycin Trough Rheumatoid Factor Complement C4 Miscellaneous Test Crossmatch 09/29/16 09/29/16 09/30/16 17:52 20:12 00:07 WBC RBC Hgb Hct MCV MCH MCHC RDW Plt Count Lymph % (Auto) [place] % (Auto) Lymph # [place] # Baso # Seg Neutrophils % Seg Neuts % (Manual) Lymphocytes % (Manual) Monocytes % (Manual) Eosinophils % (Manual) Basophils % (Manual) Nucleated RBC % Seg Neutrophils # Seg Neutrophils # Man Lymphocytes # (Manual) Monocytes # (Manual) Eosinophils # (Manual) Basophils # (Manual) PT INR Fibrinogen dRVVT Confirm Interp Factor V Activity POC ABG pH POC ABG pCO2 POC ABG pO2 ABG pO2 ABG HCO3 ABG Base Excess ABG Hemoglobin Oxyhemoglobin Sodium Potassium Chloride Carbon Dioxide BUN Creatinine Glucose POC Glucose 50 L 51 L Lactic Acid Calcium Phosphorus Magnesium Direct Bilirubin AST ALT Alkaline Phosphatase Lactate Dehydrogenase Troponin T 0.204 H* C-Reactive Protein Total Protein Albumin Prealbumin Triglycerides Cholesterol 31 L LDL Cholesterol Direct 4 L HDL Cholesterol 3 L Urine pH Urine WBC (Auto) Urine Creatinine Urine Total Protein Fluid Total Protein Vancomycin Trough Rheumatoid Factor Complement C4 Miscellaneous Test Crossmatch 09/30/16 09/30/16 09/30/16 01:30 05:15 06:10 WBC RBC Hgb Hct MCV MCH MCHC RDW Plt Count Lymph % (Auto) [place] % (Auto) Lymph # [place] # Baso # Seg Neutrophils % Seg Neuts % (Manual) Lymphocytes % (Manual) Monocytes % (Manual) Eosinophils % (Manual) Basophils % (Manual) Nucleated RBC % Seg Neutrophils # Seg Neutrophils # Man Lymphocytes # (Manual) Monocytes # (Manual) Eosinophils # (Manual) Basophils # (Manual) PT INR Fibrinogen dRVVT Confirm Interp Factor V Activity POC ABG pH POC ABG pCO2 POC ABG pO2 ABG pO2 ABG HCO3 ABG Base Excess ABG Hemoglobin Oxyhemoglobin Sodium 133 L Potassium 3.2 L Chloride 93.2 L Carbon Dioxide 19 L BUN 36 H Creatinine 3.2 H Glucose 104 H POC Glucose 167 H 146 H Lactic Acid Calcium 6.4 L Phosphorus Magnesium 1.60 L Direct Bilirubin AST ALT Alkaline Phosphatase Lactate Dehydrogenase Troponin T C-Reactive Protein Total Protein Albumin Prealbumin Triglycerides Cholesterol LDL Cholesterol Direct HDL Cholesterol Urine pH Urine WBC (Auto) Urine Creatinine Urine Total Protein Fluid Total Protein Vancomycin Trough Rheumatoid Factor Complement C4 Miscellaneous Test Crossmatch 09/30/16 09/30/16 09/30/16 11:26 13:39 18:38 WBC RBC Hgb Hct MCV MCH MCHC RDW Plt Count Lymph % (Auto) [place] % (Auto) Lymph # [place] # Baso # Seg Neutrophils % Seg Neuts % (Manual) Lymphocytes % (Manual) Monocytes % (Manual) Eosinophils % (Manual) Basophils % (Manual) Nucleated RBC % Seg Neutrophils # Seg Neutrophils # Man Lymphocytes # (Manual) Monocytes # (Manual) Eosinophils # (Manual) Basophils # (Manual) PT INR Fibrinogen dRVVT Confirm Interp Factor V Activity POC ABG pH 7.479 H POC ABG pCO2 29.8 L POC ABG pO2 117 H ABG pO2 ABG HCO3 ABG Base Excess ABG Hemoglobin Oxyhemoglobin Sodium Potassium Chloride Carbon Dioxide BUN Creatinine Glucose POC Glucose 140 H 122 H Lactic Acid Calcium Phosphorus Magnesium Direct Bilirubin AST ALT Alkaline Phosphatase Lactate Dehydrogenase Troponin T C-Reactive Protein Total Protein Albumin Prealbumin Triglycerides Cholesterol LDL Cholesterol Direct HDL Cholesterol Urine pH Urine WBC (Auto) Urine Creatinine Urine Total Protein Fluid Total Protein Vancomycin Trough Rheumatoid Factor Complement C4 Miscellaneous Test Crossmatch 10/01/16 10/01/16 10/01/16 06:00 06:00 12:37 WBC 12.6 H RBC 2.75 L Hgb 7.3 L Hct 23.3 L MCV MCH 27 L MCHC RDW 20.6 H Plt Count 72 L Lymph % (Auto) [place] % (Auto) Lymph # [place] # Baso # Seg Neutrophils % Seg Neuts % (Manual) 31.0 L Lymphocytes % (Manual) 8.0 L Monocytes % (Manual) Eosinophils % (Manual) Basophils % (Manual) Nucleated RBC % 3.0 H Seg Neutrophils # Seg Neutrophils # Man Lymphocytes # (Manual) 1.0 L Monocytes # (Manual) Eosinophils # (Manual) Basophils # (Manual) PT INR Fibrinogen dRVVT Confirm Interp Factor V Activity POC ABG pH POC ABG pCO2 POC ABG pO2 ABG pO2 ABG HCO3 ABG Base Excess ABG Hemoglobin Oxyhemoglobin Sodium 127 L Potassium Chloride 86.8 L Carbon Dioxide 20 L BUN 42 H Creatinine 3.5 H Glucose POC Glucose 65 L Lactic Acid Calcium 7.0 L Phosphorus Magnesium Direct Bilirubin AST ALT Alkaline Phosphatase Lactate Dehydrogenase Troponin T C-Reactive Protein Total Protein Albumin Prealbumin Triglycerides Cholesterol LDL Cholesterol Direct HDL Cholesterol Urine pH Urine WBC (Auto) Urine Creatinine Urine Total Protein Fluid Total Protein Vancomycin Trough Rheumatoid Factor Complement C4 Miscellaneous Test Crossmatch 10/01/16 10/01/16 10/02/16 17:39 23:32 00:59 WBC RBC Hgb Hct MCV MCH MCHC RDW Plt Count Lymph % (Auto) [place] % (Auto) Lymph # [place] # Baso # Seg Neutrophils % Seg Neuts % (Manual) Lymphocytes % (Manual) Monocytes % (Manual) Eosinophils % (Manual) Basophils % (Manual) Nucleated RBC % Seg Neutrophils # Seg Neutrophils # Man Lymphocytes # (Manual) Monocytes # (Manual) Eosinophils # (Manual) Basophils # (Manual) PT INR Fibrinogen dRVVT Confirm Interp Factor V Activity POC ABG pH POC ABG pCO2 POC ABG pO2 ABG pO2 ABG HCO3 ABG Base Excess ABG Hemoglobin Oxyhemoglobin Sodium Potassium Chloride Carbon Dioxide BUN Creatinine Glucose POC Glucose 107 H 52 L 145 H Lactic Acid Calcium Phosphorus Magnesium Direct Bilirubin AST ALT Alkaline Phosphatase Lactate Dehydrogenase Troponin T C-Reactive Protein Total Protein Albumin Prealbumin Triglycerides Cholesterol LDL Cholesterol Direct HDL Cholesterol Urine pH Urine WBC (Auto) Urine Creatinine Urine Total Protein Fluid Total Protein Vancomycin Trough Rheumatoid Factor Complement C4 Miscellaneous Test Crossmatch 10/02/16 10/02/16 10/02/16 10:30 10:50 10:50 WBC 14.7 H RBC 2.76 L Hgb 7.4 L Hct 23.6 L MCV MCH 27 L MCHC RDW 20.2 H Plt Count 79 L Lymph % (Auto) [place] % (Auto) Lymph # [place] # Baso # Seg Neutrophils % Seg Neuts % (Manual) 86.0 H Lymphocytes % (Manual) 6.0 L Monocytes % (Manual) Eosinophils % (Manual) Basophils % (Manual) Nucleated RBC % Seg Neutrophils # Seg Neutrophils # Man 12.6 H Lymphocytes # (Manual) 0.9 L Monocytes # (Manual) Eosinophils # (Manual) Basophils # (Manual) PT INR Fibrinogen dRVVT Confirm Interp Factor V Activity POC ABG pH 7.486 H POC ABG pCO2 30.1 L POC ABG pO2 108 H ABG pO2 ABG HCO3 ABG Base Excess ABG Hemoglobin Oxyhemoglobin Sodium 131 L Potassium 3.4 L Chloride 89.9 L Carbon Dioxide BUN 26 H Creatinine 2.6 H Glucose POC Glucose Lactic Acid Calcium 7.0 L Phosphorus Magnesium Direct Bilirubin AST ALT Alkaline Phosphatase Lactate Dehydrogenase Troponin T C-Reactive Protein Total Protein Albumin Prealbumin Triglycerides Cholesterol LDL Cholesterol Direct HDL Cholesterol Urine pH Urine WBC (Auto) Urine Creatinine Urine Total Protein Fluid Total Protein Vancomycin Trough Rheumatoid Factor Complement C4 Miscellaneous Test Crossmatch 10/02/16 10/03/16 10/03/16 23:45 00:45 05:10 WBC 12.9 H RBC 2.77 L Hgb 7.6 L Hct 23.7 L MCV MCH 27 L MCHC RDW 19.7 H Plt Count 89 L Lymph % (Auto) [place] % (Auto) Lymph # [place] # Baso # Seg Neutrophils % Seg Neuts % (Manual) Lymphocytes % (Manual) 8.0 L Monocytes % (Manual) Eosinophils % (Manual) Basophils % (Manual) Nucleated RBC % Seg Neutrophils # 11.9 H Seg Neutrophils # Man Lymphocytes # (Manual) 1.0 L Monocytes # (Manual) Eosinophils # (Manual) Basophils # (Manual) PT INR Fibrinogen dRVVT Confirm Interp Factor V Activity POC ABG pH POC ABG pCO2 POC ABG pO2 ABG pO2 ABG HCO3 ABG Base Excess ABG Hemoglobin Oxyhemoglobin Sodium Potassium Chloride Carbon Dioxide BUN Creatinine Glucose POC Glucose 55 L 199 H Lactic Acid Calcium Phosphorus Magnesium Direct Bilirubin AST ALT Alkaline Phosphatase Lactate Dehydrogenase Troponin T C-Reactive Protein Total Protein Albumin Prealbumin Triglycerides Cholesterol LDL Cholesterol Direct HDL Cholesterol Urine pH Urine WBC (Auto) Urine Creatinine Urine Total Protein Fluid Total Protein Vancomycin Trough Rheumatoid Factor Complement C4 Miscellaneous Test Crossmatch 10/03/16 10/03/16 10/03/16 05:10 12:14 13:18 WBC RBC Hgb Hct MCV MCH MCHC RDW Plt Count Lymph % (Auto) [place] % (Auto) Lymph # [place] # Baso # Seg Neutrophils % Seg Neuts % (Manual) Lymphocytes % (Manual) Monocytes % (Manual) Eosinophils % (Manual) Basophils % (Manual) Nucleated RBC % Seg Neutrophils # Seg Neutrophils # Man Lymphocytes # (Manual) Monocytes # (Manual) Eosinophils # (Manual) Basophils # (Manual) PT INR Fibrinogen dRVVT Confirm Interp Factor V Activity POC ABG pH POC ABG pCO2 POC ABG pO2 ABG pO2 ABG HCO3 ABG Base Excess ABG Hemoglobin Oxyhemoglobin Sodium 129 L Potassium 3.3 L Chloride 88.8 L Carbon Dioxide 20 L BUN 29 H Creatinine 2.8 H Glucose POC Glucose 68 L 127 H Lactic Acid Calcium 7.2 L Phosphorus Magnesium Direct Bilirubin AST ALT Alkaline Phosphatase Lactate Dehydrogenase Troponin T C-Reactive Protein Total Protein Albumin Prealbumin Triglycerides Cholesterol LDL Cholesterol Direct HDL Cholesterol Urine pH Urine WBC (Auto) Urine Creatinine Urine Total Protein Fluid Total Protein Vancomycin Trough Rheumatoid Factor Complement C4 Miscellaneous Test Crossmatch 10/03/16 10/03/16 10/03/16 14:42 18:21 19:09 WBC RBC Hgb Hct MCV MCH MCHC RDW Plt Count Lymph % (Auto) [place] % (Auto) Lymph # [place] # Baso # Seg Neutrophils % Seg Neuts % (Manual) Lymphocytes % (Manual) Monocytes % (Manual) Eosinophils % (Manual) Basophils % (Manual) Nucleated RBC % Seg Neutrophils # Seg Neutrophils # Man Lymphocytes # (Manual) Monocytes # (Manual) Eosinophils # (Manual) Basophils # (Manual) PT INR Fibrinogen dRVVT Confirm Interp Factor V Activity POC ABG pH 7.499 H POC ABG pCO2 28.4 L POC ABG pO2 44 L ABG pO2 ABG HCO3 ABG Base Excess ABG Hemoglobin Oxyhemoglobin Sodium Potassium Chloride Carbon Dioxide BUN Creatinine Glucose POC Glucose 64 L 205 H Lactic Acid Calcium Phosphorus Magnesium Direct Bilirubin AST ALT Alkaline Phosphatase Lactate Dehydrogenase Troponin T C-Reactive Protein Total Protein Albumin Prealbumin Triglycerides Cholesterol LDL Cholesterol Direct HDL Cholesterol Urine pH Urine WBC (Auto) Urine Creatinine Urine Total Protein Fluid Total Protein Vancomycin Trough Rheumatoid Factor Complement C4 Miscellaneous Test Crossmatch 10/03/16 10/04/16 10/04/16 23:33 04:18 06:30 WBC RBC 2.54 L Hgb 7.1 L Hct 21.7 L MCV MCH MCHC RDW 19.5 H Plt Count 76 L Lymph % (Auto) [place] % (Auto) Lymph # [place] # Baso # Seg Neutrophils % Seg Neuts % (Manual) 88.0 H Lymphocytes % (Manual) 6.0 L Monocytes % (Manual) Eosinophils % (Manual) Basophils % (Manual) Nucleated RBC % Seg Neutrophils # Seg Neutrophils # Man 8.8 H Lymphocytes # (Manual) 0.6 L Monocytes # (Manual) Eosinophils # (Manual) Basophils # (Manual) PT INR Fibrinogen dRVVT Confirm Interp Factor V Activity POC ABG pH 7.461 H POC ABG pCO2 33.6 L POC ABG pO2 211 H ABG pO2 ABG HCO3 ABG Base Excess ABG Hemoglobin Oxyhemoglobin Sodium Potassium Chloride Carbon Dioxide BUN Creatinine Glucose POC Glucose 136 H Lactic Acid Calcium Phosphorus Magnesium Direct Bilirubin AST ALT Alkaline Phosphatase Lactate Dehydrogenase Troponin T C-Reactive Protein Total Protein Albumin Prealbumin Triglycerides Cholesterol LDL Cholesterol Direct HDL Cholesterol Urine pH Urine WBC (Auto) Urine Creatinine Urine Total Protein Fluid Total Protein Vancomycin Trough Rheumatoid Factor Complement C4 Miscellaneous Test Crossmatch 10/04/16 10/04/16 10/04/16 06:30 11:45 17:54 WBC RBC Hgb Hct MCV MCH MCHC RDW Plt Count Lymph % (Auto) [place] % (Auto) Lymph # [place] # Baso # Seg Neutrophils % Seg Neuts % (Manual) Lymphocytes % (Manual) Monocytes % (Manual) Eosinophils % (Manual) Basophils % (Manual) Nucleated RBC % Seg Neutrophils # Seg Neutrophils # Man Lymphocytes # (Manual) Monocytes # (Manual) Eosinophils # (Manual) Basophils # (Manual) PT INR Fibrinogen dRVVT Confirm Interp Factor V Activity POC ABG pH POC ABG pCO2 POC ABG pO2 ABG pO2 ABG HCO3 ABG Base Excess ABG Hemoglobin Oxyhemoglobin Sodium 128 L Potassium Chloride 87.4 L Carbon Dioxide 20 L BUN 34 H Creatinine 2.9 H Glucose 127 H POC Glucose 158 H 160 H Lactic Acid Calcium 7.4 L Phosphorus Magnesium Direct Bilirubin AST ALT Alkaline Phosphatase Lactate Dehydrogenase Troponin T C-Reactive Protein Total Protein Albumin Prealbumin Triglycerides Cholesterol LDL Cholesterol Direct HDL Cholesterol Urine pH Urine WBC (Auto) Urine Creatinine Urine Total Protein Fluid Total Protein Vancomycin Trough Rheumatoid Factor Complement C4 Miscellaneous Test Crossmatch 10/04/16 10/05/16 10/05/16 23:25 04:30 05:00 WBC RBC 2.64 L Hgb 7.5 L Hct 22.6 L MCV MCH MCHC RDW 19.3 H Plt Count 80 L Lymph % (Auto) [place] % (Auto) Lymph # [place] # Baso # Seg Neutrophils % Seg Neuts % (Manual) Lymphocytes % (Manual) 12.0 L Monocytes % (Manual) Eosinophils % (Manual) Basophils % (Manual) Nucleated RBC % Seg Neutrophils # Seg Neutrophils # Man Lymphocytes # (Manual) Monocytes # (Manual) Eosinophils # (Manual) Basophils # (Manual) PT INR Fibrinogen dRVVT Confirm Interp Factor V Activity POC ABG pH 7.475 H POC ABG pCO2 33.3 L POC ABG pO2 140 H ABG pO2 ABG HCO3 ABG Base Excess ABG Hemoglobin Oxyhemoglobin Sodium Potassium Chloride Carbon Dioxide BUN Creatinine Glucose POC Glucose 141 H Lactic Acid Calcium Phosphorus Magnesium Direct Bilirubin AST ALT Alkaline Phosphatase Lactate Dehydrogenase Troponin T C-Reactive Protein Total Protein Albumin Prealbumin Triglycerides Cholesterol LDL Cholesterol Direct HDL Cholesterol Urine pH Urine WBC (Auto) Urine Creatinine Urine Total Protein Fluid Total Protein Vancomycin Trough Rheumatoid Factor Complement C4 Miscellaneous Test Crossmatch 10/05/16 10/05/16 10/05/16 05:00 05:09 12:58 WBC RBC Hgb Hct MCV MCH MCHC RDW Plt Count Lymph % (Auto) [place] % (Auto) Lymph # [place] # Baso # Seg Neutrophils % Seg Neuts % (Manual) Lymphocytes % (Manual) Monocytes % (Manual) Eosinophils % (Manual) Basophils % (Manual) Nucleated RBC % Seg Neutrophils # Seg Neutrophils # Man Lymphocytes # (Manual) Monocytes # (Manual) Eosinophils # (Manual) Basophils # (Manual) PT INR Fibrinogen dRVVT Confirm Interp Factor V Activity POC ABG pH POC ABG pCO2 POC ABG pO2 ABG pO2 ABG HCO3 ABG Base Excess ABG Hemoglobin Oxyhemoglobin Sodium 131 L Potassium Chloride 94.0 L Carbon Dioxide 20 L BUN 22 H Creatinine 2.0 H Glucose 123 H POC Glucose 166 H 179 H Lactic Acid Calcium 7.7 L Phosphorus 2.20 L D Magnesium Direct Bilirubin AST ALT Alkaline Phosphatase Lactate Dehydrogenase Troponin T C-Reactive Protein Total Protein Albumin Prealbumin Triglycerides Cholesterol LDL Cholesterol Direct HDL Cholesterol Urine pH Urine WBC (Auto) Urine Creatinine Urine Total Protein Fluid Total Protein Vancomycin Trough Rheumatoid Factor Complement C4 Miscellaneous Test Crossmatch 10/05/16 10/05/16 10/05/16 15:50 18:53 23:12 WBC RBC Hgb Hct MCV MCH MCHC RDW Plt Count Lymph % (Auto) [place] % (Auto) Lymph # [place] # Baso # Seg Neutrophils % Seg Neuts % (Manual) Lymphocytes % (Manual) Monocytes % (Manual) Eosinophils % (Manual) Basophils % (Manual) Nucleated RBC % Seg Neutrophils # Seg Neutrophils # Man Lymphocytes # (Manual) Monocytes # (Manual) Eosinophils # (Manual) Basophils # (Manual) PT INR Fibrinogen dRVVT Confirm Interp Factor V Activity POC ABG pH POC ABG pCO2 POC ABG pO2 ABG pO2 ABG HCO3 ABG Base Excess ABG Hemoglobin Oxyhemoglobin Sodium Potassium Chloride Carbon Dioxide BUN Creatinine Glucose POC Glucose 150 H 164 H Lactic Acid Calcium Phosphorus Magnesium Direct Bilirubin AST ALT Alkaline Phosphatase Lactate Dehydrogenase Troponin T C-Reactive Protein Total Protein Albumin Prealbumin Triglycerides Cholesterol LDL Cholesterol Direct HDL Cholesterol Urine pH Urine WBC (Auto) Urine Creatinine Urine Total Protein Fluid Total Protein Vancomycin Trough Rheumatoid Factor Complement C4 Miscellaneous Test Crossmatch See Detail 10/06/16 10/06/16 10/06/16 03:50 03:50 04:53 WBC RBC 3.00 L Hgb 8.6 L Hct 25.8 L MCV MCH MCHC RDW 17.9 H Plt Count 65 L Lymph % (Auto) [place] % (Auto) Lymph # [place] # Baso # Seg Neutrophils % Seg Neuts % (Manual) 30.0 L Lymphocytes % (Manual) 5.0 L Monocytes % (Manual) Eosinophils % (Manual) Basophils % (Manual) Nucleated RBC % Seg Neutrophils # Seg Neutrophils # Man Lymphocytes # (Manual) 0.4 L Monocytes # (Manual) Eosinophils # (Manual) Basophils # (Manual) PT INR Fibrinogen dRVVT Confirm Interp Factor V Activity POC ABG pH 7.310 L POC ABG pCO2 49.0 H POC ABG pO2 ABG pO2 ABG HCO3 ABG Base Excess ABG Hemoglobin Oxyhemoglobin Sodium 133 L Potassium Chloride 95.9 L Carbon Dioxide BUN 26 H Creatinine 2.0 H Glucose 116 H POC Glucose Lactic Acid Calcium 7.8 L Phosphorus Magnesium Direct Bilirubin AST ALT Alkaline Phosphatase Lactate Dehydrogenase Troponin T C-Reactive Protein Total Protein Albumin Prealbumin Triglycerides Cholesterol LDL Cholesterol Direct HDL Cholesterol Urine pH Urine WBC (Auto) Urine Creatinine Urine Total Protein Fluid Total Protein Vancomycin Trough Rheumatoid Factor Complement C4 Miscellaneous Test Crossmatch 10/06/16 10/06/16 10/06/16 05:23 11:52 18:34 WBC RBC Hgb Hct MCV MCH MCHC RDW Plt Count Lymph % (Auto) [place] % (Auto) Lymph # [place] # Baso # Seg Neutrophils % Seg Neuts % (Manual) Lymphocytes % (Manual) Monocytes % (Manual) Eosinophils % (Manual) Basophils % (Manual) Nucleated RBC % Seg Neutrophils # Seg Neutrophils # Man Lymphocytes # (Manual) Monocytes # (Manual) Eosinophils # (Manual) Basophils # (Manual) PT INR Fibrinogen dRVVT Confirm Interp Factor V Activity POC ABG pH POC ABG pCO2 POC ABG pO2 ABG pO2 ABG HCO3 ABG Base Excess ABG Hemoglobin Oxyhemoglobin Sodium Potassium Chloride Carbon Dioxide BUN Creatinine Glucose POC Glucose 126 H 116 H 129 H Lactic Acid Calcium Phosphorus Magnesium Direct Bilirubin AST ALT Alkaline Phosphatase Lactate Dehydrogenase Troponin T C-Reactive Protein Total Protein Albumin Prealbumin Triglycerides Cholesterol LDL Cholesterol Direct HDL Cholesterol Urine pH Urine WBC (Auto) Urine Creatinine Urine Total Protein Fluid Total Protein Vancomycin Trough Rheumatoid Factor Complement C4 Miscellaneous Test Crossmatch 10/07/16 10/07/16 10/07/16 03:45 05:00 10:00 WBC 17.0 H RBC 2.68 L Hgb 7.3 L Hct 25.3 L MCV MCH 27 L MCHC 29 L RDW 19.6 H Plt Count 74 L Lymph % (Auto) [place] % (Auto) Lymph # [place] # Baso # Seg Neutrophils % Seg Neuts % (Manual) Lymphocytes % (Manual) 12.0 L Monocytes % (Manual) Eosinophils % (Manual) Basophils % (Manual) Nucleated RBC % 4.0 H Seg Neutrophils # Seg Neutrophils # Man 10.7 H Lymphocytes # (Manual) Monocytes # (Manual) Eosinophils # (Manual) Basophils # (Manual) PT INR Fibrinogen dRVVT Confirm Interp Factor V Activity POC ABG pH POC ABG pCO2 POC ABG pO2 ABG pO2 ABG HCO3 ABG Base Excess ABG Hemoglobin Oxyhemoglobin Sodium 130 L Potassium 3.2 L Chloride 93.9 L Carbon Dioxide 20 L BUN 44 H Creatinine 2.7 H Glucose 129 H POC Glucose Lactic Acid Calcium 7.4 L Phosphorus Magnesium Direct Bilirubin AST ALT 6 L Alkaline Phosphatase 195 H Lactate Dehydrogenase Troponin T C-Reactive Protein Total Protein 4.9 L Albumin 1.0 L Prealbumin Triglycerides Cholesterol LDL Cholesterol Direct HDL Cholesterol Urine pH Urine WBC (Auto) Urine Creatinine Urine Total Protein Fluid Total Protein Vancomycin Trough Rheumatoid Factor Complement C4 Miscellaneous Test Flexitest 1 H Crossmatch 10/07/16 10/07/16 10/07/16 10:00 11:24 18:10 WBC RBC Hgb Hct MCV MCH MCHC RDW Plt Count Lymph % (Auto) [place] % (Auto) Lymph # [place] # Baso # Seg Neutrophils % Seg Neuts % (Manual) Lymphocytes % (Manual) Monocytes % (Manual) Eosinophils % (Manual) Basophils % (Manual) Nucleated RBC % Seg Neutrophils # Seg Neutrophils # Man Lymphocytes # (Manual) Monocytes # (Manual) Eosinophils # (Manual) Basophils # (Manual) PT INR Fibrinogen dRVVT Confirm Interp Factor V Activity POC ABG pH POC ABG pCO2 POC ABG pO2 ABG pO2 ABG HCO3 ABG Base Excess ABG Hemoglobin Oxyhemoglobin Sodium Potassium Chloride Carbon Dioxide BUN Creatinine Glucose POC Glucose 116 H 130 H Lactic Acid Calcium Phosphorus Magnesium Direct Bilirubin AST ALT Alkaline Phosphatase Lactate Dehydrogenase Troponin T C-Reactive Protein 19.40 H Total Protein Albumin Prealbumin Triglycerides Cholesterol LDL Cholesterol Direct HDL Cholesterol Urine pH Urine WBC (Auto) Urine Creatinine Urine Total Protein Fluid Total Protein Vancomycin Trough Rheumatoid Factor Complement C4 Miscellaneous Test Crossmatch 10/07/16 10/08/16 10/08/16 18:30 00:00 04:00 WBC RBC Hgb Hct MCV MCH MCHC RDW Plt Count Lymph % (Auto) [place] % (Auto) Lymph # [place] # Baso # Seg Neutrophils % Seg Neuts % (Manual) Lymphocytes % (Manual) Monocytes % (Manual) Eosinophils % (Manual) Basophils % (Manual) Nucleated RBC % Seg Neutrophils # Seg Neutrophils # Man Lymphocytes # (Manual) Monocytes # (Manual) Eosinophils # (Manual) Basophils # (Manual) PT INR Fibrinogen dRVVT Confirm Interp Factor V Activity POC ABG pH POC ABG pCO2 POC ABG pO2 ABG pO2 ABG HCO3 ABG Base Excess ABG Hemoglobin Oxyhemoglobin Sodium 132 L Potassium 3.3 L Chloride 93.6 L Carbon Dioxide 17 L BUN 59 H Creatinine 2.7 H Glucose 121 H POC Glucose 122 H Lactic Acid Calcium 7.6 L Phosphorus Magnesium Direct Bilirubin AST ALT Alkaline Phosphatase Lactate Dehydrogenase Troponin T C-Reactive Protein Total Protein Albumin Prealbumin Triglycerides Cholesterol LDL Cholesterol Direct HDL Cholesterol Urine pH Urine WBC (Auto) > 182.0 H Urine Creatinine Urine Total Protein Fluid Total Protein Vancomycin Trough Rheumatoid Factor Complement C4 Miscellaneous Test Crossmatch 10/08/16 10/08/16 10/08/16 04:30 05:30 11:51 WBC RBC 5.15 H Hgb 14.4 H D Hct 44.5 H D MCV MCH MCHC RDW 19.5 H Plt Count 56 L Lymph % (Auto) [place] % (Auto) Lymph # [place] # Baso # Seg Neutrophils % Seg Neuts % (Manual) 24.0 L Lymphocytes % (Manual) 8.0 L Monocytes % (Manual) Eosinophils % (Manual) Basophils % (Manual) Nucleated RBC % 9.0 H Seg Neutrophils # Seg Neutrophils # Man Lymphocytes # (Manual) 0.7 L Monocytes # (Manual) Eosinophils # (Manual) Basophils # (Manual) PT INR Fibrinogen dRVVT Confirm Interp Factor V Activity POC ABG pH POC ABG pCO2 POC ABG pO2 ABG pO2 ABG HCO3 ABG Base Excess ABG Hemoglobin Oxyhemoglobin Sodium Potassium Chloride Carbon Dioxide BUN Creatinine Glucose POC Glucose 125 H 150 H Lactic Acid Calcium Phosphorus Magnesium Direct Bilirubin AST ALT Alkaline Phosphatase Lactate Dehydrogenase Troponin T C-Reactive Protein Total Protein Albumin Prealbumin Triglycerides Cholesterol LDL Cholesterol Direct HDL Cholesterol Urine pH Urine WBC (Auto) Urine Creatinine Urine Total Protein Fluid Total Protein Vancomycin Trough Rheumatoid Factor Complement C4 Miscellaneous Test Crossmatch 10/08/16 10/08/16 10/08/16 12:49 17:07 19:30 WBC RBC Hgb 7.1 L D Hct 22.4 L D MCV MCH MCHC RDW Plt Count Lymph % (Auto) [place] % (Auto) Lymph # [place] # Baso # Seg Neutrophils % Seg Neuts % (Manual) Lymphocytes % (Manual) Monocytes % (Manual) Eosinophils % (Manual) Basophils % (Manual) Nucleated RBC % Seg Neutrophils # Seg Neutrophils # Man Lymphocytes # (Manual) Monocytes # (Manual) Eosinophils # (Manual) Basophils # (Manual) PT INR Fibrinogen dRVVT Confirm Interp Factor V Activity POC ABG pH POC ABG pCO2 28.2 L POC ABG pO2 111 H ABG pO2 ABG HCO3 ABG Base Excess ABG Hemoglobin Oxyhemoglobin Sodium Potassium Chloride Carbon Dioxide BUN Creatinine Glucose POC Glucose 145 H Lactic Acid Calcium Phosphorus Magnesium Direct Bilirubin AST ALT Alkaline Phosphatase Lactate Dehydrogenase Troponin T C-Reactive Protein Total Protein Albumin Prealbumin Triglycerides Cholesterol LDL Cholesterol Direct HDL Cholesterol Urine pH Urine WBC (Auto) Urine Creatinine Urine Total Protein Fluid Total Protein Vancomycin Trough Rheumatoid Factor Complement C4 Miscellaneous Test Crossmatch 10/08/16 10/09/16 10/09/16 19:30 03:45 03:45 WBC 12.6 H RBC 2.36 L Hgb 6.7 L Hct 21.1 L MCV MCH MCHC RDW 19.5 H Plt Count 75 L Lymph % (Auto) [place] % (Auto) Lymph # [place] # Baso # Seg Neutrophils % Seg Neuts % (Manual) Lymphocytes % (Manual) Monocytes % (Manual) 10.0 H Eosinophils % (Manual) Basophils % (Manual) Nucleated RBC % 3.0 H Seg Neutrophils # Seg Neutrophils # Man Lymphocytes # (Manual) Monocytes # (Manual) 1.3 H Eosinophils # (Manual) Basophils # (Manual) PT 18.0 H INR 1.41 H Fibrinogen dRVVT Confirm Interp Factor V Activity POC ABG pH POC ABG pCO2 POC ABG pO2 ABG pO2 ABG HCO3 ABG Base Excess ABG Hemoglobin Oxyhemoglobin Sodium 135 L Potassium Chloride Carbon Dioxide 17 L BUN 81 H Creatinine 3.2 H Glucose 109 H POC Glucose Lactic Acid Calcium 7.4 L Phosphorus 4.60 H D Magnesium Direct Bilirubin AST ALT Alkaline Phosphatase Lactate Dehydrogenase Troponin T C-Reactive Protein Total Protein Albumin Prealbumin Triglycerides Cholesterol LDL Cholesterol Direct HDL Cholesterol Urine pH Urine WBC (Auto) Urine Creatinine Urine Total Protein Fluid Total Protein Vancomycin Trough Rheumatoid Factor Complement C4 Miscellaneous Test Crossmatch 10/09/16 10/09/16 10/09/16 03:45 05:14 07:20 WBC RBC Hgb Hct MCV MCH MCHC RDW Plt Count Lymph % (Auto) [place] % (Auto) Lymph # [place] # Baso # Seg Neutrophils % Seg Neuts % (Manual) Lymphocytes % (Manual) Monocytes % (Manual) Eosinophils % (Manual) Basophils % (Manual) Nucleated RBC % Seg Neutrophils # Seg Neutrophils # Man Lymphocytes # (Manual) Monocytes # (Manual) Eosinophils # (Manual) Basophils # (Manual) PT 19.0 H INR 1.51 H Fibrinogen dRVVT Confirm Interp Factor V Activity POC ABG pH POC ABG pCO2 POC ABG pO2 ABG pO2 ABG HCO3 ABG Base Excess ABG Hemoglobin Oxyhemoglobin Sodium Potassium Chloride Carbon Dioxide BUN Creatinine Glucose POC Glucose 151 H Lactic Acid Calcium Phosphorus Magnesium Direct Bilirubin AST ALT Alkaline Phosphatase Lactate Dehydrogenase Troponin T C-Reactive Protein Total Protein Albumin Prealbumin Triglycerides Cholesterol LDL Cholesterol Direct HDL Cholesterol Urine pH Urine WBC (Auto) Urine Creatinine Urine Total Protein Fluid Total Protein Vancomycin Trough Rheumatoid Factor Complement C4 Miscellaneous Test Crossmatch See Detail 10/09/16 10/09/16 10/09/16 11:46 16:20 16:43 WBC RBC Hgb 7.2 L Hct 22.2 L MCV MCH MCHC RDW Plt Count Lymph % (Auto) [place] % (Auto) Lymph # [place] # Baso # Seg Neutrophils % Seg Neuts % (Manual) Lymphocytes % (Manual) Monocytes % (Manual) Eosinophils % (Manual) Basophils % (Manual) Nucleated RBC % Seg Neutrophils # Seg Neutrophils # Man Lymphocytes # (Manual) Monocytes # (Manual) Eosinophils # (Manual) Basophils # (Manual) PT INR Fibrinogen dRVVT Confirm Interp Factor V Activity POC ABG pH POC ABG pCO2 POC ABG pO2 ABG pO2 ABG HCO3 ABG Base Excess ABG Hemoglobin Oxyhemoglobin Sodium Potassium Chloride Carbon Dioxide BUN Creatinine Glucose POC Glucose 133 H 141 H Lactic Acid Calcium Phosphorus Magnesium Direct Bilirubin AST ALT Alkaline Phosphatase Lactate Dehydrogenase Troponin T C-Reactive Protein Total Protein Albumin Prealbumin Triglycerides Cholesterol LDL Cholesterol Direct HDL Cholesterol Urine pH Urine WBC (Auto) Urine Creatinine Urine Total Protein Fluid Total Protein Vancomycin Trough Rheumatoid Factor Complement C4 Miscellaneous Test Crossmatch 10/10/16 10/10/16 10/10/16 05:00 05:00 11:19 WBC 18.5 H RBC 2.19 L Hgb 6.4 L Hct 19.6 L* MCV MCH MCHC RDW 19.3 H Plt Count 93 L Lymph % (Auto) [place] % (Auto) Lymph # [place] # Baso # Seg Neutrophils % Seg Neuts % (Manual) Lymphocytes % (Manual) 10.0 L Monocytes % (Manual) Eosinophils % (Manual) Basophils % (Manual) Nucleated RBC % 4.0 H Seg Neutrophils # Seg Neutrophils # Man 11.3 H Lymphocytes # (Manual) Monocytes # (Manual) Eosinophils # (Manual) Basophils # (Manual) PT INR Fibrinogen dRVVT Confirm Interp Factor V Activity POC ABG pH POC ABG pCO2 POC ABG pO2 ABG pO2 ABG HCO3 ABG Base Excess ABG Hemoglobin Oxyhemoglobin Sodium Potassium 5.7 H D Chloride Carbon Dioxide 16 L BUN 94 H Creatinine 3.1 H Glucose 131 H POC Glucose 153 H Lactic Acid Calcium 8.2 L Phosphorus 5.10 H Magnesium 2.40 H Direct Bilirubin 0.3 H AST ALT < 5 L Alkaline Phosphatase 319 H Lactate Dehydrogenase Troponin T C-Reactive Protein Total Protein 5.1 L Albumin 1.0 L Prealbumin Triglycerides Cholesterol LDL Cholesterol Direct HDL Cholesterol Urine pH Urine WBC (Auto) Urine Creatinine Urine Total Protein Fluid Total Protein Vancomycin Trough Rheumatoid Factor Complement C4 Miscellaneous Test Crossmatch 10/10/16 10/10/16 10/11/16 17:50 23:30 04:15 WBC RBC Hgb Hct MCV MCH MCHC RDW Plt Count Lymph % (Auto) [place] % (Auto) Lymph # [place] # Baso # Seg Neutrophils % Seg Neuts % (Manual) Lymphocytes % (Manual) Monocytes % (Manual) Eosinophils % (Manual) Basophils % (Manual) Nucleated RBC % Seg Neutrophils # Seg Neutrophils # Man Lymphocytes # (Manual) Monocytes # (Manual) Eosinophils # (Manual) Basophils # (Manual) PT INR Fibrinogen dRVVT Confirm Interp Factor V Activity POC ABG pH POC ABG pCO2 POC ABG pO2 ABG pO2 ABG HCO3 ABG Base Excess ABG Hemoglobin Oxyhemoglobin Sodium Potassium Chloride 96.4 L Carbon Dioxide 21 L BUN 57 H Creatinine 2.1 H Glucose 151 H POC Glucose 146 H 141 H Lactic Acid Calcium 8.3 L Phosphorus Magnesium Direct Bilirubin AST ALT Alkaline Phosphatase Lactate Dehydrogenase Troponin T C-Reactive Protein Total Protein Albumin Prealbumin Triglycerides Cholesterol LDL Cholesterol Direct HDL Cholesterol Urine pH Urine WBC (Auto) Urine Creatinine Urine Total Protein Fluid Total Protein Vancomycin Trough Rheumatoid Factor Complement C4 Miscellaneous Test Crossmatch 10/11/16 10/11/16 10/11/16 04:15 04:15 05:30 WBC 28.3 H RBC 3.12 L Hgb 9.3 L Hct 28.7 L D MCV MCH MCHC RDW 17.7 H Plt Count 128 L Lymph % (Auto) [place] % (Auto) Lymph # [place] # Baso # Seg Neutrophils % Seg Neuts % (Manual) Lymphocytes % (Manual) Monocytes % (Manual) Eosinophils % (Manual) Basophils % (Manual) Nucleated RBC % Seg Neutrophils # Seg Neutrophils # Man Lymphocytes # (Manual) Monocytes # (Manual) Eosinophils # (Manual) Basophils # (Manual) PT INR Fibrinogen dRVVT Confirm Interp Factor V Activity POC ABG pH POC ABG pCO2 POC ABG pO2 ABG pO2 ABG HCO3 ABG Base Excess ABG Hemoglobin Oxyhemoglobin Sodium Potassium Chloride Carbon Dioxide BUN Creatinine Glucose POC Glucose 167 H Lactic Acid Calcium Phosphorus Magnesium Direct Bilirubin AST ALT Alkaline Phosphatase Lactate Dehydrogenase Troponin T C-Reactive Protein 15.80 H Total Protein Albumin Prealbumin Triglycerides Cholesterol LDL Cholesterol Direct HDL Cholesterol Urine pH Urine WBC (Auto) Urine Creatinine Urine Total Protein Fluid Total Protein Vancomycin Trough Rheumatoid Factor Complement C4 Miscellaneous Test Crossmatch 10/11/16 10/11/1610/11/17 11:40 15:49 23:57 WBC RBC Hgb Hct MCV MCH MCHC RDW Plt Count Lymph % (Auto) [place] % (Auto) Lymph # [place] # Baso # Seg Neutrophils % Seg Neuts % (Manual) Lymphocytes % (Manual) Monocytes % (Manual) Eosinophils % (Manual) Basophils % (Manual) Nucleated RBC % Seg Neutrophils # Seg Neutrophils # Man Lymphocytes # (Manual) Monocytes # (Manual) Eosinophils # (Manual) Basophils # (Manual) PT INR Fibrinogen dRVVT Confirm Interp Factor V Activity POC ABG pH POC ABG pCO2 POC ABG pO2 ABG pO2 ABG HCO3 ABG Base Excess ABG Hemoglobin Oxyhemoglobin Sodium Potassium Chloride Carbon Dioxide BUN Creatinine Glucose POC Glucose 139 H 168 H 161 H Lactic Acid Calcium Phosphorus Magnesium Direct Bilirubin AST ALT Alkaline Phosphatase Lactate Dehydrogenase Troponin T C-Reactive Protein Total Protein Albumin Prealbumin Triglycerides Cholesterol LDL Cholesterol Direct HDL Cholesterol Urine pH Urine WBC (Auto) Urine Creatinine Urine Total Protein Fluid Total Protein Vancomycin Trough Rheumatoid Factor Complement C4 Miscellaneous Test Crossmatch 10/12/16 10/12/16 10/12/16 04:40 04:40 05:44 WBC 22.5 H RBC 2.88 L Hgb 8.8 L Hct 26.8 L MCV MCH MCHC RDW 17.8 H Plt Count Lymph % (Auto) [place] % (Auto) Lymph # [place] # Baso # Seg Neutrophils % Seg Neuts % (Manual) Lymphocytes % (Manual) Monocytes % (Manual) Eosinophils % (Manual) Basophils % (Manual) Nucleated RBC % Seg Neutrophils # Seg Neutrophils # Man Lymphocytes # (Manual) Monocytes # (Manual) Eosinophils # (Manual) Basophils # (Manual) PT INR Fibrinogen dRVVT Confirm Interp Factor V Activity POC ABG pH POC ABG pCO2 POC ABG pO2 ABG pO2 ABG HCO3 ABG Base Excess ABG Hemoglobin Oxyhemoglobin Sodium 134 L Potassium Chloride 93.0 L Carbon Dioxide BUN 74 H Creatinine 2.5 H Glucose 137 H POC Glucose 158 H Lactic Acid Calcium 8.2 L Phosphorus Magnesium Direct Bilirubin AST ALT Alkaline Phosphatase Lactate Dehydrogenase Troponin T C-Reactive Protein Total Protein Albumin Prealbumin Triglycerides Cholesterol LDL Cholesterol Direct HDL Cholesterol Urine pH Urine WBC (Auto) Urine Creatinine Urine Total Protein Fluid Total Protein Vancomycin Trough Rheumatoid Factor Complement C4 Miscellaneous Test Crossmatch 10/12/16 10/12/16 10/12/16 12:27 18:18 23:46 WBC RBC Hgb Hct MCV MCH MCHC RDW Plt Count Lymph % (Auto) [place] % (Auto) Lymph # [place] # Baso # Seg Neutrophils % Seg Neuts % (Manual) Lymphocytes % (Manual) Monocytes % (Manual) Eosinophils % (Manual) Basophils % (Manual) Nucleated RBC % Seg Neutrophils # Seg Neutrophils # Man Lymphocytes # (Manual) Monocytes # (Manual) Eosinophils # (Manual) Basophils # (Manual) PT INR Fibrinogen dRVVT Confirm Interp Factor V Activity POC ABG pH POC ABG pCO2 POC ABG pO2 ABG pO2 ABG HCO3 ABG Base Excess ABG Hemoglobin Oxyhemoglobin Sodium Potassium Chloride Carbon Dioxide BUN Creatinine Glucose POC Glucose 153 H 140 H 150 H Lactic Acid Calcium Phosphorus Magnesium Direct Bilirubin AST ALT Alkaline Phosphatase Lactate Dehydrogenase Troponin T C-Reactive Protein Total Protein Albumin Prealbumin Triglycerides Cholesterol LDL Cholesterol Direct HDL Cholesterol Urine pH Urine WBC (Auto) Urine Creatinine Urine Total Protein Fluid Total Protein Vancomycin Trough Rheumatoid Factor Complement C4 Miscellaneous Test Crossmatch 10/13/16 10/13/16 10/13/16 06:22 09:20 12:29 WBC RBC Hgb Hct MCV MCH MCHC RDW Plt Count Lymph % (Auto) [place] % (Auto) Lymph # [place] # Baso # Seg Neutrophils % Seg Neuts % (Manual) Lymphocytes % (Manual) Monocytes % (Manual) Eosinophils % (Manual) Basophils % (Manual) Nucleated RBC % Seg Neutrophils # Seg Neutrophils # Man Lymphocytes # (Manual) Monocytes # (Manual) Eosinophils # (Manual) Basophils # (Manual) PT INR Fibrinogen dRVVT Confirm Interp Factor V Activity POC ABG pH POC ABG pCO2 POC ABG pO2 ABG pO2 ABG HCO3 ABG Base Excess ABG Hemoglobin Oxyhemoglobin Sodium Potassium Chloride Carbon Dioxide BUN Creatinine Glucose POC Glucose 165 H 193 H Lactic Acid Calcium Phosphorus Magnesium Direct Bilirubin AST ALT Alkaline Phosphatase Lactate Dehydrogenase Troponin T C-Reactive Protein Total Protein Albumin Prealbumin Triglycerides Cholesterol LDL Cholesterol Direct HDL Cholesterol Urine pH Urine WBC (Auto) Urine Creatinine Urine Total Protein Fluid Total Protein Vancomycin Trough Rheumatoid Factor Complement C4 Miscellaneous Test Flexitest 1 H Crossmatch 10/13/16 10/13/16 10/13/16 18:09 Unknown Unknown WBC 23.4 H RBC 2.83 L Hgb 8.7 L Hct 26.1 L MCV MCH MCHC RDW 18.1 H Plt Count Lymph % (Auto) [place] % (Auto) Lymph # [place] # Baso # Seg Neutrophils % Seg Neuts % (Manual) Lymphocytes % (Manual) Monocytes % (Manual) Eosinophils % (Manual) Basophils % (Manual) Nucleated RBC % Seg Neutrophils # Seg Neutrophils # Man Lymphocytes # (Manual) Monocytes # (Manual) Eosinophils # (Manual) Basophils # (Manual) PT INR Fibrinogen dRVVT Confirm Interp Factor V Activity POC ABG pH POC ABG pCO2 POC ABG pO2 ABG pO2 ABG HCO3 ABG Base Excess ABG Hemoglobin Oxyhemoglobin Sodium Potassium Chloride 95.8 L Carbon Dioxide BUN 82 H Creatinine 2.6 H Glucose 152 H POC Glucose 166 H Lactic Acid Calcium Phosphorus Magnesium Direct Bilirubin AST ALT Alkaline Phosphatase Lactate Dehydrogenase Troponin T C-Reactive Protein Total Protein Albumin Prealbumin Triglycerides Cholesterol LDL Cholesterol Direct HDL Cholesterol Urine pH Urine WBC (Auto) Urine Creatinine Urine Total Protein Fluid Total Protein Vancomycin Trough Rheumatoid Factor Complement C4 Miscellaneous Test Crossmatch 10/14/16 10/14/16 10/14/16 05:38 06:35 08:10 WBC 20.7 H RBC 2.81 L Hgb 8.4 L Hct 27.2 L MCV MCH MCHC RDW 19.4 H Plt Count Lymph % (Auto) [place] % (Auto) Lymph # [place] # Baso # Seg Neutrophils % Seg Neuts % (Manual) Lymphocytes % (Manual) Monocytes % (Manual) Eosinophils % (Manual) Basophils % (Manual) Nucleated RBC % Seg Neutrophils # Seg Neutrophils # Man Lymphocytes # (Manual) Monocytes # (Manual) Eosinophils # (Manual) Basophils # (Manual) PT INR Fibrinogen dRVVT Confirm Interp Factor V Activity POC ABG pH POC ABG pCO2 POC ABG pO2 ABG pO2 ABG HCO3 ABG Base Excess ABG Hemoglobin Oxyhemoglobin Sodium Potassium Chloride Carbon Dioxide BUN 58 H Creatinine 1.9 H Glucose 169 H POC Glucose 195 H Lactic Acid Calcium Phosphorus Magnesium Direct Bilirubin AST ALT Alkaline Phosphatase Lactate Dehydrogenase Troponin T C-Reactive Protein Total Protein Albumin Prealbumin Triglycerides Cholesterol LDL Cholesterol Direct HDL Cholesterol Urine pH Urine WBC (Auto) Urine Creatinine Urine Total Protein Fluid Total Protein Vancomycin Trough Rheumatoid Factor Complement C4 Miscellaneous Test Crossmatch 10/14/16 10/14/16 10/14/16 11:44 17:13 23:28 WBC RBC Hgb Hct MCV MCH MCHC RDW Plt Count Lymph % (Auto) [place] % (Auto) Lymph # [place] # Baso # Seg Neutrophils % Seg Neuts % (Manual) Lymphocytes % (Manual) Monocytes % (Manual) Eosinophils % (Manual) Basophils % (Manual) Nucleated RBC % Seg Neutrophils # Seg Neutrophils # Man Lymphocytes # (Manual) Monocytes # (Manual) Eosinophils # (Manual) Basophils # (Manual) PT INR Fibrinogen dRVVT Confirm Interp Factor V Activity POC ABG pH POC ABG pCO2 POC ABG pO2 ABG pO2 ABG HCO3 ABG Base Excess ABG Hemoglobin Oxyhemoglobin Sodium Potassium Chloride Carbon Dioxide BUN Creatinine Glucose POC Glucose 174 H 121 H 151 H Lactic Acid Calcium Phosphorus Magnesium Direct Bilirubin AST ALT Alkaline Phosphatase Lactate Dehydrogenase Troponin T C-Reactive Protein Total Protein Albumin Prealbumin Triglycerides Cholesterol LDL Cholesterol Direct HDL Cholesterol Urine pH Urine WBC (Auto) Urine Creatinine Urine Total Protein Fluid Total Protein Vancomycin Trough Rheumatoid Factor Complement C4 Miscellaneous Test Crossmatch 10/15/16 10/15/16 10/15/16 05:06 12:26 17:48 WBC RBC Hgb Hct MCV MCH MCHC RDW Plt Count Lymph % (Auto) [place] % (Auto) Lymph # [place] # Baso # Seg Neutrophils % Seg Neuts % (Manual) Lymphocytes % (Manual) Monocytes % (Manual) Eosinophils % (Manual) Basophils % (Manual) Nucleated RBC % Seg Neutrophils # Seg Neutrophils # Man Lymphocytes # (Manual) Monocytes # (Manual) Eosinophils # (Manual) Basophils # (Manual) PT INR Fibrinogen dRVVT Confirm Interp Factor V Activity POC ABG pH POC ABG pCO2 POC ABG pO2 ABG pO2 ABG HCO3 ABG Base Excess ABG Hemoglobin Oxyhemoglobin Sodium Potassium Chloride Carbon Dioxide BUN Creatinine Glucose POC Glucose 151 H 149 H 153 H Lactic Acid Calcium Phosphorus Magnesium Direct Bilirubin AST ALT Alkaline Phosphatase Lactate Dehydrogenase Troponin T C-Reactive Protein Total Protein Albumin Prealbumin Triglycerides Cholesterol LDL Cholesterol Direct HDL Cholesterol Urine pH Urine WBC (Auto) Urine Creatinine Urine Total Protein Fluid Total Protein Vancomycin Trough Rheumatoid Factor Complement C4 Miscellaneous Test Crossmatch 10/15/16 10/15/16 10/16/16 Unknown Unknown 00:02 WBC 23.4 H RBC 2.78 L Hgb 8.5 L Hct 25.7 L MCV MCH MCHC RDW 18.7 H Plt Count Lymph % (Auto) [place] % (Auto) Lymph # [place] # Baso # Seg Neutrophils % Seg Neuts % (Manual) Lymphocytes % (Manual) Monocytes % (Manual) Eosinophils % (Manual) Basophils % (Manual) Nucleated RBC % Seg Neutrophils # Seg Neutrophils # Man Lymphocytes # (Manual) Monocytes # (Manual) Eosinophils # (Manual) Basophils # (Manual) PT INR Fibrinogen dRVVT Confirm Interp Factor V Activity POC ABG pH POC ABG pCO2 POC ABG pO2 ABG pO2 ABG HCO3 ABG Base Excess ABG Hemoglobin Oxyhemoglobin Sodium Potassium Chloride Carbon Dioxide BUN 73 H Creatinine 2.3 H Glucose 120 H POC Glucose 137 H Lactic Acid Calcium Phosphorus Magnesium Direct Bilirubin AST ALT Alkaline Phosphatase Lactate Dehydrogenase Troponin T C-Reactive Protein Total Protein Albumin Prealbumin Triglycerides Cholesterol LDL Cholesterol Direct HDL Cholesterol Urine pH Urine WBC (Auto) Urine Creatinine Urine Total Protein Fluid Total Protein Vancomycin Trough Rheumatoid Factor Complement C4 Miscellaneous Test Crossmatch 10/16/16 10/16/16 10/16/16 05:44 06:25 06:25 WBC 22.5 H RBC 2.76 L Hgb 8.3 L Hct 25.2 L MCV MCH MCHC RDW 18.3 H Plt Count Lymph % (Auto) [place] % (Auto) Lymph # [place] # Baso # Seg Neutrophils % Seg Neuts % (Manual) Lymphocytes % (Manual) Monocytes % (Manual) Eosinophils % (Manual) Basophils % (Manual) Nucleated RBC % Seg Neutrophils # Seg Neutrophils # Man Lymphocytes # (Manual) Monocytes # (Manual) Eosinophils # (Manual) Basophils # (Manual) PT INR Fibrinogen dRVVT Confirm Interp Factor V Activity POC ABG pH POC ABG pCO2 POC ABG pO2 ABG pO2 ABG HCO3 ABG Base Excess ABG Hemoglobin Oxyhemoglobin Sodium Potassium Chloride Carbon Dioxide BUN 92 H Creatinine 3.0 H Glucose 138 H POC Glucose 110 H Lactic Acid Calcium Phosphorus Magnesium Direct Bilirubin AST ALT Alkaline Phosphatase Lactate Dehydrogenase Troponin T C-Reactive Protein Total Protein Albumin Prealbumin Triglycerides Cholesterol LDL Cholesterol Direct HDL Cholesterol Urine pH Urine WBC (Auto) Urine Creatinine Urine Total Protein Fluid Total Protein Vancomycin Trough Rheumatoid Factor Complement C4 Miscellaneous Test Crossmatch 10/16/16 10/16/16 10/16/16 11:27 11:48 17:36 WBC RBC Hgb Hct MCV MCH MCHC RDW Plt Count Lymph % (Auto) [place] % (Auto) Lymph # [place] # Baso # Seg Neutrophils % Seg Neuts % (Manual) Lymphocytes % (Manual) Monocytes % (Manual) Eosinophils % (Manual) Basophils % (Manual) Nucleated RBC % Seg Neutrophils # Seg Neutrophils # Man Lymphocytes # (Manual) Monocytes # (Manual) Eosinophils # (Manual) Basophils # (Manual) PT INR Fibrinogen dRVVT Confirm Interp Factor V Activity POC ABG pH 7.582 H POC ABG pCO2 27.4 L POC ABG pO2 110 H ABG pO2 ABG HCO3 ABG Base Excess ABG Hemoglobin Oxyhemoglobin Sodium Potassium Chloride Carbon Dioxide BUN Creatinine Glucose POC Glucose 121 H 133 H Lactic Acid Calcium Phosphorus Magnesium Direct Bilirubin AST ALT Alkaline Phosphatase Lactate Dehydrogenase Troponin T C-Reactive Protein Total Protein Albumin Prealbumin Triglycerides Cholesterol LDL Cholesterol Direct HDL Cholesterol Urine pH Urine WBC (Auto) Urine Creatinine Urine Total Protein Fluid Total Protein Vancomycin Trough Rheumatoid Factor Complement C4 Miscellaneous Test Crossmatch 10/16/16 10/17/16 10/17/16 20:48 04:24 04:24 WBC 21.4 H RBC 2.72 L Hgb 8.0 L Hct 25.2 L MCV MCH MCHC RDW 18.0 H Plt Count Lymph % (Auto) [place] % (Auto) Lymph # [place] # Baso # Seg Neutrophils % Seg Neuts % (Manual) Lymphocytes % (Manual) Monocytes % (Manual) Eosinophils % (Manual) Basophils % (Manual) Nucleated RBC % Seg Neutrophils # Seg Neutrophils # Man Lymphocytes # (Manual) Monocytes # (Manual) Eosinophils # (Manual) Basophils # (Manual) PT INR Fibrinogen dRVVT Confirm Interp Factor V Activity POC ABG pH 7.561 H POC ABG pCO2 24.4 L POC ABG pO2 77 L ABG pO2 ABG HCO3 ABG Base Excess ABG Hemoglobin Oxyhemoglobin Sodium 148 H Potassium Chloride Carbon Dioxide BUN 104 H Creatinine 3.0 H Glucose 149 H POC Glucose Lactic Acid Calcium Phosphorus Magnesium Direct Bilirubin AST ALT Alkaline Phosphatase 138 H Lactate Dehydrogenase Troponin T C-Reactive Protein Total Protein 6.2 L Albumin 1.5 L Prealbumin Triglycerides Cholesterol LDL Cholesterol Direct HDL Cholesterol Urine pH Urine WBC (Auto) Urine Creatinine Urine Total Protein Fluid Total Protein Vancomycin Trough Rheumatoid Factor Complement C4 Miscellaneous Test Crossmatch 10/17/16 10/17/16 10/17/16 06:02 12:17 17:14 WBC RBC Hgb Hct MCV MCH MCHC RDW Plt Count Lymph % (Auto) [place] % (Auto) Lymph # [place] # Baso # Seg Neutrophils % Seg Neuts % (Manual) Lymphocytes % (Manual) Monocytes % (Manual) Eosinophils % (Manual) Basophils % (Manual) Nucleated RBC % Seg Neutrophils # Seg Neutrophils # Man Lymphocytes # (Manual) Monocytes # (Manual) Eosinophils # (Manual) Basophils # (Manual) PT INR Fibrinogen dRVVT Confirm Interp Factor V Activity POC ABG pH POC ABG pCO2 POC ABG pO2 ABG pO2 ABG HCO3 ABG Base Excess ABG Hemoglobin Oxyhemoglobin Sodium Potassium Chloride Carbon Dioxide BUN Creatinine Glucose POC Glucose 170 H 167 H 126 H Lactic Acid Calcium Phosphorus Magnesium Direct Bilirubin AST ALT Alkaline Phosphatase Lactate Dehydrogenase Troponin T C-Reactive Protein Total Protein Albumin Prealbumin Triglycerides Cholesterol LDL Cholesterol Direct HDL Cholesterol Urine pH Urine WBC (Auto) Urine Creatinine Urine Total Protein Fluid Total Protein Vancomycin Trough Rheumatoid Factor Complement C4 Miscellaneous Test Crossmatch 10/17/16 10/18/16 10/18/16 23:17 04:00 04:00 WBC 20.7 H RBC 2.47 L Hgb 7.4 L Hct 22.9 L MCV MCH MCHC RDW 17.5 H Plt Count Lymph % (Auto) [place] % (Auto) Lymph # [place] # Baso # Seg Neutrophils % Seg Neuts % (Manual) Lymphocytes % (Manual) Monocytes % (Manual) Eosinophils % (Manual) Basophils % (Manual) Nucleated RBC % Seg Neutrophils # Seg Neutrophils # Man Lymphocytes # (Manual) Monocytes # (Manual) Eosinophils # (Manual) Basophils # (Manual) PT INR Fibrinogen dRVVT Confirm Interp Factor V Activity POC ABG pH POC ABG pCO2 POC ABG pO2 ABG pO2 ABG HCO3 ABG Base Excess ABG Hemoglobin Oxyhemoglobin Sodium 149 H Potassium Chloride 107.9 H Carbon Dioxide 20 L BUN 117 H Creatinine 3.2 H Glucose 119 H POC Glucose 121 H Lactic Acid Calcium Phosphorus Magnesium Direct Bilirubin AST ALT Alkaline Phosphatase Lactate Dehydrogenase Troponin T C-Reactive Protein Total Protein Albumin Prealbumin Triglycerides Cholesterol LDL Cholesterol Direct HDL Cholesterol Urine pH Urine WBC (Auto) Urine Creatinine Urine Total Protein Fluid Total Protein Vancomycin Trough Rheumatoid Factor Complement C4 Miscellaneous Test Crossmatch 10/18/16 10/18/16 10/18/16 05:23 10:46 17:30 WBC RBC Hgb Hct MCV MCH MCHC RDW Plt Count Lymph % (Auto) [place] % (Auto) Lymph # [place] # Baso # Seg Neutrophils % Seg Neuts % (Manual) Lymphocytes % (Manual) Monocytes % (Manual) Eosinophils % (Manual) Basophils % (Manual) Nucleated RBC % Seg Neutrophils # Seg Neutrophils # Man Lymphocytes # (Manual) Monocytes # (Manual) Eosinophils # (Manual) Basophils # (Manual) PT INR Fibrinogen dRVVT Confirm Interp Factor V Activity POC ABG pH POC ABG pCO2 POC ABG pO2 ABG pO2 ABG HCO3 ABG Base Excess ABG Hemoglobin Oxyhemoglobin Sodium Potassium Chloride Carbon Dioxide BUN Creatinine Glucose POC Glucose 119 H 155 H 124 H Lactic Acid Calcium Phosphorus Magnesium Direct Bilirubin AST ALT Alkaline Phosphatase Lactate Dehydrogenase Troponin T C-Reactive Protein Total Protein Albumin Prealbumin Triglycerides Cholesterol LDL Cholesterol Direct HDL Cholesterol Urine pH Urine WBC (Auto) Urine Creatinine Urine Total Protein Fluid Total Protein Vancomycin Trough Rheumatoid Factor Complement C4 Miscellaneous Test Crossmatch 10/19/16 10/19/16 10/19/16 04:00 04:00 05:25 WBC 17.4 H RBC 2.54 L Hgb 7.7 L Hct 23.6 L MCV MCH MCHC RDW 17.3 H Plt Count Lymph % (Auto) [place] % (Auto) Lymph # [place] # Baso # Seg Neutrophils % Seg Neuts % (Manual) Lymphocytes % (Manual) Monocytes % (Manual) Eosinophils % (Manual) Basophils % (Manual) Nucleated RBC % Seg Neutrophils # Seg Neutrophils # Man Lymphocytes # (Manual) Monocytes # (Manual) Eosinophils # (Manual) Basophils # (Manual) PT INR Fibrinogen dRVVT Confirm Interp Factor V Activity POC ABG pH POC ABG pCO2 POC ABG pO2 ABG pO2 ABG HCO3 ABG Base Excess ABG Hemoglobin Oxyhemoglobin Sodium Potassium Chloride Carbon Dioxide BUN 72 H Creatinine 2.1 H Glucose 116 H POC Glucose 119 H Lactic Acid Calcium Phosphorus Magnesium Direct Bilirubin AST ALT Alkaline Phosphatase Lactate Dehydrogenase Troponin T C-Reactive Protein Total Protein Albumin Prealbumin Triglycerides Cholesterol LDL Cholesterol Direct HDL Cholesterol Urine pH Urine WBC (Auto) Urine Creatinine Urine Total Protein Fluid Total Protein Vancomycin Trough Rheumatoid Factor Complement C4 Miscellaneous Test Crossmatch 10/19/16 10/19/16 10/20/16 11:46 23:59 06:00 WBC RBC Hgb Hct MCV MCH MCHC RDW Plt Count Lymph % (Auto) [place] % (Auto) Lymph # [place] # Baso # Seg Neutrophils % Seg Neuts % (Manual) Lymphocytes % (Manual) Monocytes % (Manual) Eosinophils % (Manual) Basophils % (Manual) Nucleated RBC % Seg Neutrophils # Seg Neutrophils # Man Lymphocytes # (Manual) Monocytes # (Manual) Eosinophils # (Manual) Basophils # (Manual) PT INR Fibrinogen dRVVT Confirm Interp Factor V Activity POC ABG pH POC ABG pCO2 POC ABG pO2 ABG pO2 ABG HCO3 ABG Base Excess ABG Hemoglobin Oxyhemoglobin Sodium Potassium Chloride Carbon Dioxide 17 L BUN 94 H Creatinine 2.7 H Glucose POC Glucose 116 H 117 H Lactic Acid Calcium Phosphorus Magnesium Direct Bilirubin AST ALT Alkaline Phosphatase Lactate Dehydrogenase Troponin T C-Reactive Protein Total Protein Albumin Prealbumin Triglycerides Cholesterol LDL Cholesterol Direct HDL Cholesterol Urine pH Urine WBC (Auto) Urine Creatinine Urine Total Protein Fluid Total Protein Vancomycin Trough Rheumatoid Factor Complement C4 Miscellaneous Test Crossmatch 10/20/16 10/20/16 10/20/16 06:00 11:49 16:00 WBC 19.7 H RBC 2.51 L Hgb 7.7 L Hct 23.5 L MCV MCH MCHC RDW 17.5 H Plt Count Lymph % (Auto) [place] % (Auto) Lymph # [place] # Baso # Seg Neutrophils % Seg Neuts % (Manual) Lymphocytes % (Manual) Monocytes % (Manual) Eosinophils % (Manual) Basophils % (Manual) Nucleated RBC % Seg Neutrophils # Seg Neutrophils # Man Lymphocytes # (Manual) Monocytes # (Manual) Eosinophils # (Manual) Basophils # (Manual) PT INR Fibrinogen dRVVT Confirm Interp Factor V Activity POC ABG pH POC ABG pCO2 POC ABG pO2 ABG pO2 ABG HCO3 ABG Base Excess ABG Hemoglobin Oxyhemoglobin Sodium Potassium Chloride Carbon Dioxide BUN Creatinine Glucose POC Glucose 117 H Lactic Acid Calcium Phosphorus Magnesium Direct Bilirubin AST ALT Alkaline Phosphatase Lactate Dehydrogenase Troponin T C-Reactive Protein Total Protein Albumin Prealbumin Triglycerides Cholesterol LDL Cholesterol Direct HDL Cholesterol Urine pH Urine WBC (Auto) Urine Creatinine Urine Total Protein Fluid Total Protein Vancomycin Trough Rheumatoid Factor Complement C4 Miscellaneous Test Flexitest 1 H Crossmatch 10/20/16 10/20/16 10/21/16 18:36 23:39 04:00 WBC RBC Hgb Hct MCV MCH MCHC RDW Plt Count Lymph % (Auto) [place] % (Auto) Lymph # [place] # Baso # Seg Neutrophils % Seg Neuts % (Manual) Lymphocytes % (Manual) Monocytes % (Manual) Eosinophils % (Manual) Basophils % (Manual) Nucleated RBC % Seg Neutrophils # Seg Neutrophils # Man Lymphocytes # (Manual) Monocytes # (Manual) Eosinophils # (Manual) Basophils # (Manual) PT INR Fibrinogen dRVVT Confirm Interp Factor V Activity POC ABG pH POC ABG pCO2 POC ABG pO2 ABG pO2 ABG HCO3 ABG Base Excess ABG Hemoglobin Oxyhemoglobin Sodium Potassium 5.4 H D Chloride Carbon Dioxide 15 L BUN 110 H Creatinine 3.0 H Glucose POC Glucose 127 H 114 H Lactic Acid Calcium Phosphorus Magnesium Direct Bilirubin AST ALT Alkaline Phosphatase Lactate Dehydrogenase Troponin T C-Reactive Protein Total Protein Albumin Prealbumin Triglycerides Cholesterol LDL Cholesterol Direct HDL Cholesterol Urine pH Urine WBC (Auto) Urine Creatinine Urine Total Protein Fluid Total Protein Vancomycin Trough Rheumatoid Factor Complement C4 Miscellaneous Test Crossmatch 10/21/16 10/21/16 10/22/16 05:54 23:46 05:18 WBC RBC Hgb Hct MCV MCH MCHC RDW Plt Count Lymph % (Auto) [place] % (Auto) Lymph # [place] # Baso # Seg Neutrophils % Seg Neuts % (Manual) Lymphocytes % (Manual) Monocytes % (Manual) Eosinophils % (Manual) Basophils % (Manual) Nucleated RBC % Seg Neutrophils # Seg Neutrophils # Man Lymphocytes # (Manual) Monocytes # (Manual) Eosinophils # (Manual) Basophils # (Manual) PT INR Fibrinogen dRVVT Confirm Interp Factor V Activity POC ABG pH POC ABG pCO2 POC ABG pO2 ABG pO2 ABG HCO3 ABG Base Excess ABG Hemoglobin Oxyhemoglobin Sodium Potassium Chloride Carbon Dioxide BUN Creatinine Glucose POC Glucose 119 H 108 H 109 H Lactic Acid Calcium Phosphorus Magnesium Direct Bilirubin AST ALT Alkaline Phosphatase Lactate Dehydrogenase Troponin T C-Reactive Protein Total Protein Albumin Prealbumin Triglycerides Cholesterol LDL Cholesterol Direct HDL Cholesterol Urine pH Urine WBC (Auto) Urine Creatinine Urine Total Protein Fluid Total Protein Vancomycin Trough Rheumatoid Factor Complement C4 Miscellaneous Test Crossmatch 10/22/16 10/22/16 10/22/16 06:40 06:40 06:40 WBC 14.0 H RBC 2.03 L Hgb 7.0 L Hct 20.5 L MCV 98 H MCH 34 H MCHC 35 H RDW 17.8 H Plt Count Lymph % (Auto) [place] % (Auto) 9.9 H Lymph # [place] # 1.4 H Baso # 0.2 H Seg Neutrophils % 72.0 H Seg Neuts % (Manual) Lymphocytes % (Manual) Monocytes % (Manual) Eosinophils % (Manual) Basophils % (Manual) Nucleated RBC % Seg Neutrophils # 10.0 H Seg Neutrophils # Man Lymphocytes # (Manual) Monocytes # (Manual) Eosinophils # (Manual) Basophils # (Manual) PT INR Fibrinogen dRVVT Confirm Interp Factor V Activity POC ABG pH POC ABG pCO2 POC ABG pO2 ABG pO2 ABG HCO3 ABG Base Excess ABG Hemoglobin Oxyhemoglobin Sodium 130 L D Potassium Chloride 92.4 L Carbon Dioxide 20 L BUN 50 H Creatinine 1.6 H Glucose 589 H* POC Glucose Lactic Acid Calcium 7.8 L D Phosphorus Magnesium 1.60 L Direct Bilirubin AST ALT Alkaline Phosphatase Lactate Dehydrogenase Troponin T C-Reactive Protein Total Protein Albumin Prealbumin Triglycerides Cholesterol LDL Cholesterol Direct HDL Cholesterol Urine pH Urine WBC (Auto) Urine Creatinine Urine Total Protein Fluid Total Protein Vancomycin Trough Rheumatoid Factor Complement C4 Miscellaneous Test Crossmatch 10/22/16 10/22/16 10/22/16 11:39 16:44 23:36 WBC RBC Hgb Hct MCV MCH MCHC RDW Plt Count Lymph % (Auto) [place] % (Auto) Lymph # [place] # Baso # Seg Neutrophils % Seg Neuts % (Manual) Lymphocytes % (Manual) Monocytes % (Manual) Eosinophils % (Manual) Basophils % (Manual) Nucleated RBC % Seg Neutrophils # Seg Neutrophils # Man Lymphocytes # (Manual) Monocytes # (Manual) Eosinophils # (Manual) Basophils # (Manual) PT INR Fibrinogen dRVVT Confirm Interp Factor V Activity POC ABG pH POC ABG pCO2 POC ABG pO2 ABG pO2 ABG HCO3 ABG Base Excess ABG Hemoglobin Oxyhemoglobin Sodium Potassium Chloride Carbon Dioxide BUN Creatinine Glucose POC Glucose 142 H 163 H 123 H Lactic Acid Calcium Phosphorus Magnesium Direct Bilirubin AST ALT Alkaline Phosphatase Lactate Dehydrogenase Troponin T C-Reactive Protein Total Protein Albumin Prealbumin Triglycerides Cholesterol LDL Cholesterol Direct HDL Cholesterol Urine pH Urine WBC (Auto) Urine Creatinine Urine Total Protein Fluid Total Protein Vancomycin Trough Rheumatoid Factor Complement C4 Miscellaneous Test Crossmatch 10/23/16 10/23/16 10/23/16 04:58 06:00 12:12 WBC RBC Hgb Hct MCV MCH MCHC RDW Plt Count Lymph % (Auto) [place] % (Auto) Lymph # [place] # Baso # Seg Neutrophils % Seg Neuts % (Manual) Lymphocytes % (Manual) Monocytes % (Manual) Eosinophils % (Manual) Basophils % (Manual) Nucleated RBC % Seg Neutrophils # Seg Neutrophils # Man Lymphocytes # (Manual) Monocytes # (Manual) Eosinophils # (Manual) Basophils # (Manual) PT INR Fibrinogen dRVVT Confirm Interp Factor V Activity POC ABG pH POC ABG pCO2 POC ABG pO2 ABG pO2 ABG HCO3 ABG Base Excess ABG Hemoglobin Oxyhemoglobin Sodium 133 L Potassium 3.5 L Chloride 96.1 L Carbon Dioxide 18 L BUN 76 H Creatinine 2.1 H Glucose POC Glucose 133 H 138 H Lactic Acid Calcium 8.3 L Phosphorus Magnesium Direct Bilirubin AST ALT Alkaline Phosphatase Lactate Dehydrogenase Troponin T C-Reactive Protein Total Protein Albumin Prealbumin Triglycerides Cholesterol LDL Cholesterol Direct HDL Cholesterol Urine pH Urine WBC (Auto) Urine Creatinine Urine Total Protein Fluid Total Protein Vancomycin Trough Rheumatoid Factor Complement C4 Miscellaneous Test Crossmatch 10/23/16 10/23/16 10/24/16 16:53 23:37 04:00 WBC RBC Hgb Hct MCV MCH MCHC RDW Plt Count Lymph % (Auto) [place] % (Auto) Lymph # [place] # Baso # Seg Neutrophils % Seg Neuts % (Manual) Lymphocytes % (Manual) Monocytes % (Manual) Eosinophils % (Manual) Basophils % (Manual) Nucleated RBC % Seg Neutrophils # Seg Neutrophils # Man Lymphocytes # (Manual) Monocytes # (Manual) Eosinophils # (Manual) Basophils # (Manual) PT INR Fibrinogen dRVVT Confirm Interp Factor V Activity POC ABG pH POC ABG pCO2 POC ABG pO2 ABG pO2 ABG HCO3 ABG Base Excess ABG Hemoglobin Oxyhemoglobin Sodium 131 L Potassium Chloride 94.5 L Carbon Dioxide 19 L BUN 97 H Creatinine 2.6 H Glucose 110 H POC Glucose 125 H 123 H Lactic Acid Calcium 8.3 L Phosphorus Magnesium Direct Bilirubin AST ALT Alkaline Phosphatase Lactate Dehydrogenase Troponin T C-Reactive Protein Total Protein Albumin Prealbumin Triglycerides Cholesterol LDL Cholesterol Direct HDL Cholesterol Urine pH Urine WBC (Auto) Urine Creatinine Urine Total Protein Fluid Total Protein Vancomycin Trough Rheumatoid Factor Complement C4 Miscellaneous Test Crossmatch 10/24/16 10/24/16 10/24/16 07:49 11:39 17:52 WBC RBC Hgb 6.0 L Hct 19.7 L* MCV MCH MCHC RDW Plt Count Lymph % (Auto) [place] % (Auto) Lymph # [place] # Baso # Seg Neutrophils % Seg Neuts % (Manual) Lymphocytes % (Manual) Monocytes % (Manual) Eosinophils % (Manual) Basophils % (Manual) Nucleated RBC % Seg Neutrophils # Seg Neutrophils # Man Lymphocytes # (Manual) Monocytes # (Manual) Eosinophils # (Manual) Basophils # (Manual) PT INR Fibrinogen dRVVT Confirm Interp Factor V Activity POC ABG pH POC ABG pCO2 POC ABG pO2 ABG pO2 ABG HCO3 ABG Base Excess ABG Hemoglobin Oxyhemoglobin Sodium Potassium Chloride Carbon Dioxide BUN Creatinine Glucose POC Glucose 106 H 158 H Lactic Acid Calcium Phosphorus Magnesium Direct Bilirubin AST ALT Alkaline Phosphatase Lactate Dehydrogenase Troponin T C-Reactive Protein Total Protein Albumin Prealbumin Triglycerides Cholesterol LDL Cholesterol Direct HDL Cholesterol Urine pH Urine WBC (Auto) Urine Creatinine Urine Total Protein Fluid Total Protein Vancomycin Trough Rheumatoid Factor Complement C4 Miscellaneous Test Crossmatch 10/24/16 10/24/16 10/24/16 20:00 22:27 Unknown WBC RBC Hgb 9.4 L D Hct 27.5 L D MCV MCH MCHC RDW Plt Count Lymph % (Auto) [place] % (Auto) Lymph # [place] # Baso # Seg Neutrophils % Seg Neuts % (Manual) Lymphocytes % (Manual) Monocytes % (Manual) Eosinophils % (Manual) Basophils % (Manual) Nucleated RBC % Seg Neutrophils # Seg Neutrophils # Man Lymphocytes # (Manual) Monocytes # (Manual) Eosinophils # (Manual) Basophils # (Manual) PT INR Fibrinogen dRVVT Confirm Interp Factor V Activity POC ABG pH POC ABG pCO2 POC ABG pO2 ABG pO2 ABG HCO3 ABG Base Excess ABG Hemoglobin Oxyhemoglobin Sodium Potassium Chloride Carbon Dioxide BUN Creatinine Glucose POC Glucose 125 H Lactic Acid Calcium Phosphorus Magnesium Direct Bilirubin AST ALT Alkaline Phosphatase Lactate Dehydrogenase Troponin T C-Reactive Protein Total Protein Albumin Prealbumin Triglycerides Cholesterol LDL Cholesterol Direct HDL Cholesterol Urine pH Urine WBC (Auto) Urine Creatinine Urine Total Protein Fluid Total Protein Vancomycin Trough Rheumatoid Factor Complement C4 Miscellaneous Test Crossmatch See Detail 10/25/16 10/25/16 10/25/16 04:00 04:00 04:00 WBC 14.2 H RBC 2.98 L Hgb 9.0 L Hct 26.2 L MCV MCH MCHC RDW 16.6 H Plt Count Lymph % (Auto) [place] % (Auto) 10.7 H Lymph # [place] # 1.5 H Baso # Seg Neutrophils % 73.6 H Seg Neuts % (Manual) Lymphocytes % (Manual) Monocytes % (Manual) Eosinophils % (Manual) Basophils % (Manual) Nucleated RBC % Seg Neutrophils # 10.5 H Seg Neutrophils # Man Lymphocytes # (Manual) Monocytes # (Manual) Eosinophils # (Manual) Basophils # (Manual) PT INR Fibrinogen dRVVT Confirm Interp Factor V Activity POC ABG pH POC ABG pCO2 POC ABG pO2 ABG pO2 ABG HCO3 ABG Base Excess ABG Hemoglobin Oxyhemoglobin Sodium 132 L Potassium Chloride 94.7 L Carbon Dioxide BUN 51 H Creatinine 1.6 H Glucose 130 H POC Glucose Lactic Acid Calcium 8.3 L Phosphorus 1.60 L D Magnesium Direct Bilirubin AST ALT Alkaline Phosphatase Lactate Dehydrogenase Troponin T C-Reactive Protein Total Protein Albumin Prealbumin Triglycerides Cholesterol LDL Cholesterol Direct HDL Cholesterol Urine pH Urine WBC (Auto) Urine Creatinine Urine Total Protein Fluid Total Protein Vancomycin Trough Rheumatoid Factor Complement C4 Miscellaneous Test Crossmatch 10/25/16 10/25/16 10/25/16 04:32 11:48 17:22 WBC RBC Hgb Hct MCV MCH MCHC RDW Plt Count Lymph % (Auto) [place] % (Auto) Lymph # [place] # Baso # Seg Neutrophils % Seg Neuts % (Manual) Lymphocytes % (Manual) Monocytes % (Manual) Eosinophils % (Manual) Basophils % (Manual) Nucleated RBC % Seg Neutrophils # Seg Neutrophils # Man Lymphocytes # (Manual) Monocytes # (Manual) Eosinophils # (Manual) Basophils # (Manual) PT INR Fibrinogen dRVVT Confirm Interp Factor V Activity POC ABG pH POC ABG pCO2 POC ABG pO2 ABG pO2 ABG HCO3 ABG Base Excess ABG Hemoglobin Oxyhemoglobin Sodium Potassium Chloride Carbon Dioxide BUN Creatinine Glucose POC Glucose 124 H 171 H 120 H Lactic Acid Calcium Phosphorus Magnesium Direct Bilirubin AST ALT Alkaline Phosphatase Lactate Dehydrogenase Troponin T C-Reactive Protein Total Protein Albumin Prealbumin Triglycerides Cholesterol LDL Cholesterol Direct HDL Cholesterol Urine pH Urine WBC (Auto) Urine Creatinine Urine Total Protein Fluid Total Protein Vancomycin Trough Rheumatoid Factor Complement C4 Miscellaneous Test Crossmatch 10/26/16 10/26/16 10/26/16 04:54 07:06 07:06 WBC 16.9 H RBC 3.06 L Hgb 9.1 L Hct 26.9 L MCV MCH MCHC RDW 16.9 H Plt Count Lymph % (Auto) [place] % (Auto) Lymph # [place] # Baso # Seg Neutrophils % Seg Neuts % (Manual) 71.0 H Lymphocytes % (Manual) 5.0 L Monocytes % (Manual) 12.0 H Eosinophils % (Manual) Basophils % (Manual) Nucleated RBC % Seg Neutrophils # Seg Neutrophils # Man 12.0 H Lymphocytes # (Manual) 0.8 L Monocytes # (Manual) 2.0 H Eosinophils # (Manual) Basophils # (Manual) PT INR Fibrinogen dRVVT Confirm Interp Factor V Activity POC ABG pH POC ABG pCO2 POC ABG pO2 ABG pO2 ABG HCO3 ABG Base Excess ABG Hemoglobin Oxyhemoglobin Sodium 135 L Potassium Chloride 97.1 L Carbon Dioxide BUN 73 H Creatinine 2.2 H Glucose 117 H POC Glucose 123 H Lactic Acid Calcium Phosphorus 1.70 L Magnesium Direct Bilirubin AST ALT Alkaline Phosphatase Lactate Dehydrogenase Troponin T C-Reactive Protein Total Protein Albumin Prealbumin Triglycerides Cholesterol LDL Cholesterol Direct HDL Cholesterol Urine pH Urine WBC (Auto) Urine Creatinine Urine Total Protein Fluid Total Protein Vancomycin Trough Rheumatoid Factor Complement C4 Miscellaneous Test Crossmatch 10/26/16 10/26/16 10/26/16 12:12 17:29 23:42 WBC RBC Hgb Hct MCV MCH MCHC RDW Plt Count Lymph % (Auto) [place] % (Auto) Lymph # [place] # Baso # Seg Neutrophils % Seg Neuts % (Manual) Lymphocytes % (Manual) Monocytes % (Manual) Eosinophils % (Manual) Basophils % (Manual) Nucleated RBC % Seg Neutrophils # Seg Neutrophils # Man Lymphocytes # (Manual) Monocytes # (Manual) Eosinophils # (Manual) Basophils # (Manual) PT INR Fibrinogen dRVVT Confirm Interp Factor V Activity POC ABG pH POC ABG pCO2 POC ABG pO2 ABG pO2 ABG HCO3 ABG Base Excess ABG Hemoglobin Oxyhemoglobin Sodium Potassium Chloride Carbon Dioxide BUN Creatinine Glucose POC Glucose 126 H 161 H 118 H Lactic Acid Calcium Phosphorus Magnesium Direct Bilirubin AST ALT Alkaline Phosphatase Lactate Dehydrogenase Troponin T C-Reactive Protein Total Protein Albumin Prealbumin Triglycerides Cholesterol LDL Cholesterol Direct HDL Cholesterol Urine pH Urine WBC (Auto) Urine Creatinine Urine Total Protein Fluid Total Protein Vancomycin Trough Rheumatoid Factor Complement C4 Miscellaneous Test Crossmatch 10/27/16 10/27/16 10/27/16 05:03 06:30 06:30 WBC 13.9 H RBC 3.09 L Hgb 9.2 L Hct 27.5 L MCV MCH MCHC RDW 17.0 H Plt Count Lymph % (Auto) [place] % (Auto) Lymph # [place] # Baso # Seg Neutrophils % Seg Neuts % (Manual) 78.0 H Lymphocytes % (Manual) Monocytes % (Manual) Eosinophils % (Manual) Basophils % (Manual) Nucleated RBC % 2.0 H Seg Neutrophils # Seg Neutrophils # Man 10.8 H Lymphocytes # (Manual) Monocytes # (Manual) 1.0 H Eosinophils # (Manual) Basophils # (Manual) PT INR Fibrinogen dRVVT Confirm Interp Factor V Activity POC ABG pH POC ABG pCO2 POC ABG pO2 ABG pO2 ABG HCO3 ABG Base Excess ABG Hemoglobin Oxyhemoglobin Sodium Potassium Chloride Carbon Dioxide BUN 40 H Creatinine 1.5 H Glucose 135 H POC Glucose 107 H Lactic Acid Calcium 8.3 L Phosphorus 1.30 L D Magnesium Direct Bilirubin AST ALT Alkaline Phosphatase Lactate Dehydrogenase Troponin T C-Reactive Protein Total Protein Albumin Prealbumin Triglycerides Cholesterol LDL Cholesterol Direct HDL Cholesterol Urine pH Urine WBC (Auto) Urine Creatinine Urine Total Protein Fluid Total Protein Vancomycin Trough Rheumatoid Factor Complement C4 Miscellaneous Test Crossmatch 10/27/16 10/27/16 10/27/16 13:27 18:07 23:40 WBC RBC Hgb Hct MCV MCH MCHC RDW Plt Count Lymph % (Auto) [place] % (Auto) Lymph # [place] # Baso # Seg Neutrophils % Seg Neuts % (Manual) Lymphocytes % (Manual) Monocytes % (Manual) Eosinophils % (Manual) Basophils % (Manual) Nucleated RBC % Seg Neutrophils # Seg Neutrophils # Man Lymphocytes # (Manual) Monocytes # (Manual) Eosinophils # (Manual) Basophils # (Manual) PT INR Fibrinogen dRVVT Confirm Interp Factor V Activity POC ABG pH POC ABG pCO2 POC ABG pO2 ABG pO2 ABG HCO3 ABG Base Excess ABG Hemoglobin Oxyhemoglobin Sodium Potassium Chloride Carbon Dioxide BUN Creatinine Glucose POC Glucose 117 H 121 H 118 H Lactic Acid Calcium Phosphorus Magnesium Direct Bilirubin AST ALT Alkaline Phosphatase Lactate Dehydrogenase Troponin T C-Reactive Protein Total Protein Albumin Prealbumin Triglycerides Cholesterol LDL Cholesterol Direct HDL Cholesterol Urine pH Urine WBC (Auto) Urine Creatinine Urine Total Protein Fluid Total Protein Vancomycin Trough Rheumatoid Factor Complement C4 Miscellaneous Test Crossmatch 10/28/16 10/28/16 10/28/16 05:48 06:45 06:45 WBC 14.7 H RBC 3.05 L Hgb 9.0 L Hct 26.9 L MCV MCH MCHC RDW 16.8 H Plt Count Lymph % (Auto) 8.2 L [place] % (Auto) 8.4 H Lymph # [place] # 1.2 H Baso # Seg Neutrophils % 81.9 H Seg Neuts % (Manual) Lymphocytes % (Manual) Monocytes % (Manual) Eosinophils % (Manual) Basophils % (Manual) Nucleated RBC % Seg Neutrophils # 12.1 H Seg Neutrophils # Man Lymphocytes # (Manual) Monocytes # (Manual) Eosinophils # (Manual) Basophils # (Manual) PT INR Fibrinogen dRVVT Confirm Interp Factor V Activity POC ABG pH POC ABG pCO2 POC ABG pO2 ABG pO2 ABG HCO3 ABG Base Excess ABG Hemoglobin Oxyhemoglobin Sodium Potassium Chloride Carbon Dioxide BUN 60 H Creatinine 1.9 H Glucose 120 H POC Glucose 114 H Lactic Acid Calcium Phosphorus Magnesium Direct Bilirubin AST ALT Alkaline Phosphatase Lactate Dehydrogenase Troponin T C-Reactive Protein Total Protein Albumin Prealbumin Triglycerides Cholesterol LDL Cholesterol Direct HDL Cholesterol Urine pH Urine WBC (Auto) Urine Creatinine Urine Total Protein Fluid Total Protein Vancomycin Trough Rheumatoid Factor Complement C4 Miscellaneous Test Crossmatch 10/28/16 10/28/16 10/29/16 17:08 23:50 05:10 WBC RBC Hgb Hct MCV MCH MCHC RDW Plt Count Lymph % (Auto) [place] % (Auto) Lymph # [place] # Baso # Seg Neutrophils % Seg Neuts % (Manual) Lymphocytes % (Manual) Monocytes % (Manual) Eosinophils % (Manual) Basophils % (Manual) Nucleated RBC % Seg Neutrophils # Seg Neutrophils # Man Lymphocytes # (Manual) Monocytes # (Manual) Eosinophils # (Manual) Basophils # (Manual) PT INR Fibrinogen dRVVT Confirm Interp Factor V Activity POC ABG pH POC ABG pCO2 POC ABG pO2 ABG pO2 ABG HCO3 ABG Base Excess ABG Hemoglobin Oxyhemoglobin Sodium Potassium Chloride Carbon Dioxide BUN Creatinine Glucose POC Glucose 109 H 110 H 124 H Lactic Acid Calcium Phosphorus Magnesium Direct Bilirubin AST ALT Alkaline Phosphatase Lactate Dehydrogenase Troponin T C-Reactive Protein Total Protein Albumin Prealbumin Triglycerides Cholesterol LDL Cholesterol Direct HDL Cholesterol Urine pH Urine WBC (Auto) Urine Creatinine Urine Total Protein Fluid Total Protein Vancomycin Trough Rheumatoid Factor Complement C4 Miscellaneous Test Crossmatch 10/29/16 10/29/16 10/29/16 07:45 07:45 12:19 WBC 14.7 H RBC 3.15 L Hgb 9.3 L Hct 28.9 L MCV MCH MCHC RDW 17.0 H Plt Count Lymph % (Auto) 11.9 L [place] % (Auto) 8.6 H Lymph # [place] # 1.3 H Baso # Seg Neutrophils % 78.1 H Seg Neuts % (Manual) Lymphocytes % (Manual) Monocytes % (Manual) Eosinophils % (Manual) Basophils % (Manual) Nucleated RBC % Seg Neutrophils # 11.4 H Seg Neutrophils # Man Lymphocytes # (Manual) Monocytes # (Manual) Eosinophils # (Manual) Basophils # (Manual) PT INR Fibrinogen dRVVT Confirm Interp Factor V Activity POC ABG pH POC ABG pCO2 POC ABG pO2 ABG pO2 ABG HCO3 ABG Base Excess ABG Hemoglobin Oxyhemoglobin Sodium Potassium 5.1 H Chloride Carbon Dioxide 19 L BUN 78 H Creatinine 2.2 H Glucose 116 H POC Glucose 118 H Lactic Acid Calcium Phosphorus Magnesium Direct Bilirubin AST ALT Alkaline Phosphatase Lactate Dehydrogenase Troponin T C-Reactive Protein Total Protein Albumin Prealbumin Triglycerides Cholesterol LDL Cholesterol Direct HDL Cholesterol Urine pH Urine WBC (Auto) Urine Creatinine Urine Total Protein Fluid Total Protein Vancomycin Trough Rheumatoid Factor Complement C4 Miscellaneous Test Crossmatch 10/29/16 10/30/16 10/30/16 17:49 01:52 03:28 WBC RBC Hgb Hct MCV MCH MCHC RDW Plt Count Lymph % (Auto) [place] % (Auto) Lymph # [place] # Baso # Seg Neutrophils % Seg Neuts % (Manual) Lymphocytes % (Manual) Monocytes % (Manual) Eosinophils % (Manual) Basophils % (Manual) Nucleated RBC % Seg Neutrophils # Seg Neutrophils # Man Lymphocytes # (Manual) Monocytes # (Manual) Eosinophils # (Manual) Basophils # (Manual) PT INR Fibrinogen dRVVT Confirm Interp Factor V Activity POC ABG pH POC ABG pCO2 POC ABG pO2 ABG pO2 ABG HCO3 ABG Base Excess ABG Hemoglobin Oxyhemoglobin Sodium Potassium 5.4 H Chloride 97.5 L Carbon Dioxide 19 L BUN 90 H Creatinine 2.5 H Glucose POC Glucose 120 H 129 H Lactic Acid Calcium Phosphorus 5.20 H Magnesium Direct Bilirubin AST ALT Alkaline Phosphatase Lactate Dehydrogenase Troponin T C-Reactive Protein Total Protein Albumin Prealbumin Triglycerides Cholesterol LDL Cholesterol Direct HDL Cholesterol Urine pH Urine WBC (Auto) Urine Creatinine Urine Total Protein Fluid Total Protein Vancomycin Trough Rheumatoid Factor Complement C4 Miscellaneous Test Crossmatch 10/30/16 10/30/16 10/30/16 03:28 08:19 08:19 WBC 11.6 H 15.9 H RBC 2.75 L 2.82 L Hgb 7.9 L 8.3 L Hct 24.2 L 25.2 L MCV MCH MCHC RDW 16.7 H 17.2 H Plt Count Lymph % (Auto) [place] % (Auto) 9.8 H Lymph # [place] # 1.1 H Baso # Seg Neutrophils % 74.2 H Seg Neuts % (Manual) Lymphocytes % (Manual) Monocytes % (Manual) Eosinophils % (Manual) Basophils % (Manual) Nucleated RBC % Seg Neutrophils # 8.6 H Seg Neutrophils # Man Lymphocytes # (Manual) Monocytes # (Manual) Eosinophils # (Manual) Basophils # (Manual) PT INR Fibrinogen dRVVT Confirm Interp Factor V Activity POC ABG pH POC ABG pCO2 POC ABG pO2 ABG pO2 ABG HCO3 ABG Base Excess ABG Hemoglobin Oxyhemoglobin Sodium Potassium 5.3 H Chloride 97.4 L Carbon Dioxide 19 L BUN 93 H Creatinine 2.6 H Glucose POC Glucose Lactic Acid Calcium Phosphorus Magnesium Direct Bilirubin AST ALT Alkaline Phosphatase Lactate Dehydrogenase Troponin T C-Reactive Protein Total Protein Albumin Prealbumin Triglycerides Cholesterol LDL Cholesterol Direct HDL Cholesterol Urine pH Urine WBC (Auto) Urine Creatinine Urine Total Protein Fluid Total Protein Vancomycin Trough Rheumatoid Factor Complement C4 Miscellaneous Test Crossmatch 10/30/16 10/30/16 10/31/16 17:11 23:56 00:40 WBC RBC Hgb Hct MCV MCH MCHC RDW Plt Count Lymph % (Auto) [place] % (Auto) Lymph # [place] # Baso # Seg Neutrophils % Seg Neuts % (Manual) Lymphocytes % (Manual) Monocytes % (Manual) Eosinophils % (Manual) Basophils % (Manual) Nucleated RBC % Seg Neutrophils # Seg Neutrophils # Man Lymphocytes # (Manual) Monocytes # (Manual) Eosinophils # (Manual) Basophils # (Manual) PT INR Fibrinogen dRVVT Confirm Interp Factor V Activity POC ABG pH POC ABG pCO2 POC ABG pO2 ABG pO2 ABG HCO3 ABG Base Excess ABG Hemoglobin Oxyhemoglobin Sodium Potassium Chloride Carbon Dioxide BUN Creatinine Glucose POC Glucose 106 H 117 H 120 H Lactic Acid Calcium Phosphorus Magnesium Direct Bilirubin AST ALT Alkaline Phosphatase Lactate Dehydrogenase Troponin T C-Reactive Protein Total Protein Albumin Prealbumin Triglycerides Cholesterol LDL Cholesterol Direct HDL Cholesterol Urine pH Urine WBC (Auto) Urine Creatinine Urine Total Protein Fluid Total Protein Vancomycin Trough Rheumatoid Factor Complement C4 Miscellaneous Test Crossmatch 10/31/16 10/31/16 10/31/16 05:43 07:15 07:15 WBC 12.1 H RBC 2.63 L Hgb 7.7 L Hct 23.3 L MCV MCH MCHC RDW 16.7 H Plt Count Lymph % (Auto) 11.7 L [place] % (Auto) 7.7 H Lymph # [place] # 0.9 H Baso # Seg Neutrophils % 78.0 H Seg Neuts % (Manual) Lymphocytes % (Manual) Monocytes % (Manual) Eosinophils % (Manual) Basophils % (Manual) Nucleated RBC % Seg Neutrophils # 9.4 H Seg Neutrophils # Man Lymphocytes # (Manual) Monocytes # (Manual) Eosinophils # (Manual) Basophils # (Manual) PT INR Fibrinogen dRVVT Confirm Interp Factor V Activity POC ABG pH POC ABG pCO2 POC ABG pO2 ABG pO2 ABG HCO3 ABG Base Excess ABG Hemoglobin Oxyhemoglobin Sodium Potassium Chloride 96.4 L Carbon Dioxide 21 L BUN 99 H Creatinine 2.6 H Glucose 144 H POC Glucose 125 H Lactic Acid Calcium Phosphorus 4.80 H Magnesium Direct Bilirubin AST ALT Alkaline Phosphatase Lactate Dehydrogenase Troponin T C-Reactive Protein Total Protein Albumin Prealbumin Triglycerides Cholesterol LDL Cholesterol Direct HDL Cholesterol Urine pH Urine WBC (Auto) Urine Creatinine Urine Total Protein Fluid Total Protein Vancomycin Trough Rheumatoid Factor Complement C4 Miscellaneous Test Crossmatch 10/31/16 10/31/16 11/01/16 11:46 18:34 00:20 WBC RBC Hgb Hct MCV MCH MCHC RDW Plt Count Lymph % (Auto) [place] % (Auto) Lymph # [place] # Baso # Seg Neutrophils % Seg Neuts % (Manual) Lymphocytes % (Manual) Monocytes % (Manual) Eosinophils % (Manual) Basophils % (Manual) Nucleated RBC % Seg Neutrophils # Seg Neutrophils # Man Lymphocytes # (Manual) Monocytes # (Manual) Eosinophils # (Manual) Basophils # (Manual) PT INR Fibrinogen dRVVT Confirm Interp Factor V Activity POC ABG pH POC ABG pCO2 POC ABG pO2 ABG pO2 ABG HCO3 ABG Base Excess ABG Hemoglobin Oxyhemoglobin Sodium Potassium Chloride Carbon Dioxide BUN Creatinine Glucose POC Glucose 159 H 140 H 132 H Lactic Acid Calcium Phosphorus Magnesium Direct Bilirubin AST ALT Alkaline Phosphatase Lactate Dehydrogenase Troponin T C-Reactive Protein Total Protein Albumin Prealbumin Triglycerides Cholesterol LDL Cholesterol Direct HDL Cholesterol Urine pH Urine WBC (Auto) Urine Creatinine Urine Total Protein Fluid Total Protein Vancomycin Trough Rheumatoid Factor Complement C4 Miscellaneous Test Crossmatch 11/01/16 11/01/16 11/01/16 04:55 04:55 06:11 WBC 11.2 H RBC 2.68 L Hgb 7.5 L Hct 23.7 L MCV MCH MCHC RDW 16.1 H Plt Count Lymph % (Auto) [place] % (Auto) 9.8 H Lymph # [place] # 1.1 H Baso # Seg Neutrophils % 70.8 H Seg Neuts % (Manual) Lymphocytes % (Manual) Monocytes % (Manual) Eosinophils % (Manual) Basophils % (Manual) Nucleated RBC % Seg Neutrophils # 7.9 H Seg Neutrophils # Man Lymphocytes # (Manual) Monocytes # (Manual) Eosinophils # (Manual) Basophils # (Manual) PT INR Fibrinogen dRVVT Confirm Interp Factor V Activity POC ABG pH POC ABG pCO2 POC ABG pO2 ABG pO2 ABG HCO3 ABG Base Excess ABG Hemoglobin Oxyhemoglobin Sodium Potassium 3.3 L D Chloride Carbon Dioxide BUN 61 H Creatinine 1.9 H Glucose 114 H POC Glucose 115 H Lactic Acid Calcium Phosphorus 1.80 L D Magnesium Direct Bilirubin AST ALT Alkaline Phosphatase Lactate Dehydrogenase Troponin T C-Reactive Protein Total Protein Albumin Prealbumin Triglycerides Cholesterol LDL Cholesterol Direct HDL Cholesterol Urine pH Urine WBC (Auto) Urine Creatinine Urine Total Protein Fluid Total Protein Vancomycin Trough Rheumatoid Factor Complement C4 Miscellaneous Test Crossmatch 11/01/16 11/01/16 11/01/16 12:29 18:23 23:58 WBC RBC Hgb Hct MCV MCH MCHC RDW Plt Count Lymph % (Auto) [place] % (Auto) Lymph # [place] # Baso # Seg Neutrophils % Seg Neuts % (Manual) Lymphocytes % (Manual) Monocytes % (Manual) Eosinophils % (Manual) Basophils % (Manual) Nucleated RBC % Seg Neutrophils # Seg Neutrophils # Man Lymphocytes # (Manual) Monocytes # (Manual) Eosinophils # (Manual) Basophils # (Manual) PT INR Fibrinogen dRVVT Confirm Interp Factor V Activity POC ABG pH POC ABG pCO2 POC ABG pO2 ABG pO2 ABG HCO3 ABG Base Excess ABG Hemoglobin Oxyhemoglobin Sodium Potassium Chloride Carbon Dioxide BUN Creatinine Glucose POC Glucose 142 H 143 H 128 H Lactic Acid Calcium Phosphorus Magnesium Direct Bilirubin AST ALT Alkaline Phosphatase Lactate Dehydrogenase Troponin T C-Reactive Protein Total Protein Albumin Prealbumin Triglycerides Cholesterol LDL Cholesterol Direct HDL Cholesterol Urine pH Urine WBC (Auto) Urine Creatinine Urine Total Protein Fluid Total Protein Vancomycin Trough Rheumatoid Factor Complement C4 Miscellaneous Test Crossmatch 11/02/16 11/02/16 11/02/16 04:16 05:29 11:58 WBC RBC Hgb Hct MCV MCH MCHC RDW Plt Count Lymph % (Auto) [place] % (Auto) Lymph # [place] # Baso # Seg Neutrophils % Seg Neuts % (Manual) Lymphocytes % (Manual) Monocytes % (Manual) Eosinophils % (Manual) Basophils % (Manual) Nucleated RBC % Seg Neutrophils # Seg Neutrophils # Man Lymphocytes # (Manual) Monocytes # (Manual) Eosinophils # (Manual) Basophils # (Manual) PT INR Fibrinogen dRVVT Confirm Interp Factor V Activity POC ABG pH POC ABG pCO2 POC ABG pO2 ABG pO2 ABG HCO3 ABG Base Excess ABG Hemoglobin Oxyhemoglobin Sodium Potassium 3.1 L Chloride Carbon Dioxide BUN 73 H Creatinine 2.3 H Glucose 112 H POC Glucose 135 H 149 H Lactic Acid Calcium Phosphorus Magnesium Direct Bilirubin AST ALT Alkaline Phosphatase Lactate Dehydrogenase Troponin T C-Reactive Protein Total Protein Albumin Prealbumin Triglycerides Cholesterol LDL Cholesterol Direct HDL Cholesterol Urine pH Urine WBC (Auto) Urine Creatinine Urine Total Protein Fluid Total Protein Vancomycin Trough Rheumatoid Factor Complement C4 Miscellaneous Test Crossmatch 11/02/16 11/02/16 11/03/16 17:42 22:54 06:00 WBC RBC Hgb Hct MCV MCH MCHC RDW Plt Count Lymph % (Auto) [place] % (Auto) Lymph # [place] # Baso # Seg Neutrophils % Seg Neuts % (Manual) Lymphocytes % (Manual) Monocytes % (Manual) Eosinophils % (Manual) Basophils % (Manual) Nucleated RBC % Seg Neutrophils # Seg Neutrophils # Man Lymphocytes # (Manual) Monocytes # (Manual) Eosinophils # (Manual) Basophils # (Manual) PT INR Fibrinogen dRVVT Confirm Interp Factor V Activity POC ABG pH POC ABG pCO2 POC ABG pO2 ABG pO2 ABG HCO3 ABG Base Excess ABG Hemoglobin Oxyhemoglobin Sodium Potassium Chloride 96.7 L Carbon Dioxide BUN 41 H Creatinine 1.5 H Glucose 145 H POC Glucose 182 H 115 H Lactic Acid Calcium Phosphorus 1.60 L D Magnesium 1.50 L Direct Bilirubin AST ALT Alkaline Phosphatase Lactate Dehydrogenase Troponin T C-Reactive Protein Total Protein Albumin Prealbumin Triglycerides Cholesterol LDL Cholesterol Direct HDL Cholesterol Urine pH Urine WBC (Auto) Urine Creatinine Urine Total Protein Fluid Total Protein Vancomycin Trough Rheumatoid Factor Complement C4 Miscellaneous Test Crossmatch 11/03/16 11/03/16 11/03/16 11:53 17:45 23:37 WBC RBC Hgb Hct MCV MCH MCHC RDW Plt Count Lymph % (Auto) [place] % (Auto) Lymph # [place] # Baso # Seg Neutrophils % Seg Neuts % (Manual) Lymphocytes % (Manual) Monocytes % (Manual) Eosinophils % (Manual) Basophils % (Manual) Nucleated RBC % Seg Neutrophils # Seg Neutrophils # Man Lymphocytes # (Manual) Monocytes # (Manual) Eosinophils # (Manual) Basophils # (Manual) PT INR Fibrinogen dRVVT Confirm Interp Factor V Activity POC ABG pH POC ABG pCO2 POC ABG pO2 ABG pO2 ABG HCO3 ABG Base Excess ABG Hemoglobin Oxyhemoglobin Sodium Potassium Chloride Carbon Dioxide BUN Creatinine Glucose POC Glucose 131 H 134 H 113 H Lactic Acid Calcium Phosphorus Magnesium Direct Bilirubin AST ALT Alkaline Phosphatase Lactate Dehydrogenase Troponin T C-Reactive Protein Total Protein Albumin Prealbumin Triglycerides Cholesterol LDL Cholesterol Direct HDL Cholesterol Urine pH Urine WBC (Auto) Urine Creatinine Urine Total Protein Fluid Total Protein Vancomycin Trough Rheumatoid Factor Complement C4 Miscellaneous Test Crossmatch 11/04/16 11/04/16 11/04/16 05:41 06:00 12:10 WBC RBC Hgb Hct MCV MCH MCHC RDW Plt Count Lymph % (Auto) [place] % (Auto) Lymph # [place] # Baso # Seg Neutrophils % Seg Neuts % (Manual) Lymphocytes % (Manual) Monocytes % (Manual) Eosinophils % (Manual) Basophils % (Manual) Nucleated RBC % Seg Neutrophils # Seg Neutrophils # Man Lymphocytes # (Manual) Monocytes # (Manual) Eosinophils # (Manual) Basophils # (Manual) PT INR Fibrinogen dRVVT Confirm Interp Factor V Activity POC ABG pH POC ABG pCO2 POC ABG pO2 ABG pO2 ABG HCO3 ABG Base Excess ABG Hemoglobin Oxyhemoglobin Sodium Potassium Chloride 96.7 L Carbon Dioxide BUN 52 H Creatinine 1.9 H Glucose 126 H POC Glucose 137 H 191 H Lactic Acid Calcium Phosphorus Magnesium Direct Bilirubin AST ALT Alkaline Phosphatase Lactate Dehydrogenase Troponin T C-Reactive Protein Total Protein Albumin Prealbumin Triglycerides Cholesterol LDL Cholesterol Direct HDL Cholesterol Urine pH Urine WBC (Auto) Urine Creatinine Urine Total Protein Fluid Total Protein Vancomycin Trough Rheumatoid Factor Complement C4 Miscellaneous Test Crossmatch 11/04/16 11/05/16 11/05/16 22:57 03:10 05:10 WBC RBC Hgb Hct MCV MCH MCHC RDW Plt Count Lymph % (Auto) [place] % (Auto) Lymph # [place] # Baso # Seg Neutrophils % Seg Neuts % (Manual) Lymphocytes % (Manual) Monocytes % (Manual) Eosinophils % (Manual) Basophils % (Manual) Nucleated RBC % Seg Neutrophils # Seg Neutrophils # Man Lymphocytes # (Manual) Monocytes # (Manual) Eosinophils # (Manual) Basophils # (Manual) PT INR Fibrinogen dRVVT Confirm Interp Factor V Activity POC ABG pH POC ABG pCO2 POC ABG pO2 ABG pO2 ABG HCO3 ABG Base Excess ABG Hemoglobin Oxyhemoglobin Sodium 136 L Potassium Chloride 97.2 L Carbon Dioxide BUN 32 H Creatinine 1.3 H Glucose 123 H POC Glucose 125 H 108 H Lactic Acid Calcium 7.8 L Phosphorus Magnesium Direct Bilirubin AST ALT Alkaline Phosphatase Lactate Dehydrogenase Troponin T C-Reactive Protein Total Protein Albumin Prealbumin Triglycerides Cholesterol LDL Cholesterol Direct HDL Cholesterol Urine pH Urine WBC (Auto) Urine Creatinine Urine Total Protein Fluid Total Protein Vancomycin Trough Rheumatoid Factor Complement C4 Miscellaneous Test Crossmatch 11/05/16 11/05/16 11/05/16 12:23 13:09 13:25 WBC RBC Hgb Hct MCV MCH MCHC RDW Plt Count Lymph % (Auto) [place] % (Auto) Lymph # [place] # Baso # Seg Neutrophils % Seg Neuts % (Manual) Lymphocytes % (Manual) Monocytes % (Manual) Eosinophils % (Manual) Basophils % (Manual) Nucleated RBC % Seg Neutrophils # Seg Neutrophils # Man Lymphocytes # (Manual) Monocytes # (Manual) Eosinophils # (Manual) Basophils # (Manual) PT INR Fibrinogen dRVVT Confirm Interp Factor V Activity POC ABG pH POC ABG pCO2 POC ABG pO2 ABG pO2 ABG HCO3 ABG Base Excess ABG Hemoglobin Oxyhemoglobin Sodium Potassium Chloride Carbon Dioxide BUN Creatinine Glucose POC Glucose 124 H Lactic Acid Calcium Phosphorus Magnesium Direct Bilirubin AST ALT Alkaline Phosphatase Lactate Dehydrogenase Troponin T C-Reactive Protein 11.40 H Total Protein Albumin Prealbumin Triglycerides Cholesterol LDL Cholesterol Direct HDL Cholesterol Urine pH 9.0 H Urine WBC (Auto) Urine Creatinine Urine Total Protein Fluid Total Protein Vancomycin Trough Rheumatoid Factor Complement C4 Miscellaneous Test Crossmatch 11/05/16 11/05/16 11/05/16 13:25 17:54 23:42 WBC RBC Hgb Hct MCV MCH MCHC RDW Plt Count Lymph % (Auto) [place] % (Auto) Lymph # [place] # Baso # Seg Neutrophils % Seg Neuts % (Manual) Lymphocytes % (Manual) Monocytes % (Manual) Eosinophils % (Manual) Basophils % (Manual) Nucleated RBC % Seg Neutrophils # Seg Neutrophils # Man Lymphocytes # (Manual) Monocytes # (Manual) Eosinophils # (Manual) Basophils # (Manual) PT INR Fibrinogen dRVVT Confirm Interp Factor V Activity POC ABG pH POC ABG pCO2 POC ABG pO2 ABG pO2 ABG HCO3 ABG Base Excess ABG Hemoglobin Oxyhemoglobin Sodium Potassium Chloride Carbon Dioxide BUN Creatinine Glucose POC Glucose 114 H 134 H Lactic Acid Calcium Phosphorus Magnesium Direct Bilirubin AST ALT Alkaline Phosphatase Lactate Dehydrogenase Troponin T C-Reactive Protein Total Protein Albumin Prealbumin Triglycerides Cholesterol LDL Cholesterol Direct HDL Cholesterol Urine pH Urine WBC (Auto) Urine Creatinine Urine Total Protein Fluid Total Protein Vancomycin Trough Rheumatoid Factor Complement C4 Miscellaneous Test Flexitest 1 H Crossmatch 11/06/16 11/06/16 11/06/16 04:56 06:25 06:25 WBC RBC 2.50 L Hgb 7.3 L Hct 22.5 L MCV MCH MCHC RDW 16.9 H Plt Count Lymph % (Auto) [place] % (Auto) 10.5 H Lymph # [place] # 1.1 H Baso # Seg Neutrophils % Seg Neuts % (Manual) Lymphocytes % (Manual) Monocytes % (Manual) Eosinophils % (Manual) Basophils % (Manual) Nucleated RBC % Seg Neutrophils # Seg Neutrophils # Man Lymphocytes # (Manual) Monocytes # (Manual) Eosinophils # (Manual) Basophils # (Manual) PT INR Fibrinogen dRVVT Confirm Interp Factor V Activity POC ABG pH POC ABG pCO2 POC ABG pO2 ABG pO2 ABG HCO3 ABG Base Excess ABG Hemoglobin Oxyhemoglobin Sodium Potassium 5.1 H Chloride 95.9 L Carbon Dioxide BUN 52 H Creatinine 1.8 H Glucose 117 H POC Glucose 120 H Lactic Acid Calcium Phosphorus Magnesium Direct Bilirubin AST 103 H ALT 77 H Alkaline Phosphatase 285 H Lactate Dehydrogenase Troponin T C-Reactive Protein Total Protein 6.2 L Albumin 1.8 L Prealbumin 0.180 L Triglycerides Cholesterol LDL Cholesterol Direct HDL Cholesterol Urine pH Urine WBC (Auto) Urine Creatinine Urine Total Protein Fluid Total Protein Vancomycin Trough Rheumatoid Factor Complement C4 Miscellaneous Test Crossmatch 11/06/16 11/06/16 11/06/16 11:56 17:14 23:52 WBC RBC Hgb Hct MCV MCH MCHC RDW Plt Count Lymph % (Auto) [place] % (Auto) Lymph # [place] # Baso # Seg Neutrophils % Seg Neuts % (Manual) Lymphocytes % (Manual) Monocytes % (Manual) Eosinophils % (Manual) Basophils % (Manual) Nucleated RBC % Seg Neutrophils # Seg Neutrophils # Man Lymphocytes # (Manual) Monocytes # (Manual) Eosinophils # (Manual) Basophils # (Manual) PT INR Fibrinogen dRVVT Confirm Interp Factor V Activity POC ABG pH POC ABG pCO2 POC ABG pO2 ABG pO2 ABG HCO3 ABG Base Excess ABG Hemoglobin Oxyhemoglobin Sodium Potassium Chloride Carbon Dioxide BUN Creatinine Glucose POC Glucose 141 H 125 H 130 H Lactic Acid Calcium Phosphorus Magnesium Direct Bilirubin AST ALT Alkaline Phosphatase Lactate Dehydrogenase Troponin T C-Reactive Protein Total Protein Albumin Prealbumin Triglycerides Cholesterol LDL Cholesterol Direct HDL Cholesterol Urine pH Urine WBC (Auto) Urine Creatinine Urine Total Protein Fluid Total Protein Vancomycin Trough Rheumatoid Factor Complement C4 Miscellaneous Test Crossmatch 11/07/16 11/07/16 11/07/16 06:30 06:30 09:37 WBC RBC 2.18 L Hgb 6.3 L Hct 19.7 L* MCV MCH MCHC RDW 16.8 H Plt Count Lymph % (Auto) [place] % (Auto) 10.0 H Lymph # [place] # 1.0 H Baso # Seg Neutrophils % Seg Neuts % (Manual) Lymphocytes % (Manual) Monocytes % (Manual) Eosinophils % (Manual) Basophils % (Manual) Nucleated RBC % Seg Neutrophils # Seg Neutrophils # Man Lymphocytes # (Manual) Monocytes # (Manual) Eosinophils # (Manual) Basophils # (Manual) PT INR Fibrinogen dRVVT Confirm Interp Factor V Activity POC ABG pH POC ABG pCO2 POC ABG pO2 ABG pO2 ABG HCO3 ABG Base Excess ABG Hemoglobin Oxyhemoglobin Sodium 135 L Potassium Chloride 95.6 L Carbon Dioxide BUN 70 H Creatinine 2.0 H Glucose 126 H POC Glucose Lactic Acid Calcium Phosphorus Magnesium Direct Bilirubin AST ALT Alkaline Phosphatase Lactate Dehydrogenase Troponin T C-Reactive Protein Total Protein Albumin Prealbumin Triglycerides Cholesterol LDL Cholesterol Direct HDL Cholesterol Urine pH Urine WBC (Auto) Urine Creatinine Urine Total Protein Fluid Total Protein Vancomycin Trough Rheumatoid Factor Complement C4 Miscellaneous Test Crossmatch See Detail 11/07/16 11/07/16 11/07/16 12:52 18:51 21:26 WBC RBC Hgb Hct MCV MCH MCHC RDW Plt Count Lymph % (Auto) [place] % (Auto) Lymph # [place] # Baso # Seg Neutrophils % Seg Neuts % (Manual) Lymphocytes % (Manual) Monocytes % (Manual) Eosinophils % (Manual) Basophils % (Manual) Nucleated RBC % Seg Neutrophils # Seg Neutrophils # Man Lymphocytes # (Manual) Monocytes # (Manual) Eosinophils # (Manual) Basophils # (Manual) PT INR Fibrinogen dRVVT Confirm Interp Factor V Activity POC ABG pH 7.523 H POC ABG pCO2 34.6 L POC ABG pO2 53 L ABG pO2 ABG HCO3 ABG Base Excess ABG Hemoglobin Oxyhemoglobin Sodium Potassium Chloride Carbon Dioxide BUN Creatinine Glucose POC Glucose 142 H 155 H Lactic Acid Calcium Phosphorus Magnesium Direct Bilirubin AST ALT Alkaline Phosphatase Lactate Dehydrogenase Troponin T C-Reactive Protein Total Protein Albumin Prealbumin Triglycerides Cholesterol LDL Cholesterol Direct HDL Cholesterol Urine pH Urine WBC (Auto) Urine Creatinine Urine Total Protein Fluid Total Protein Vancomycin Trough Rheumatoid Factor Complement C4 Miscellaneous Test Crossmatch 11/07/16 11/08/16 11/08/16 21:34 13:03 23:37 WBC RBC 2.63 L Hgb 7.7 L Hct 22.7 L MCV MCH MCHC RDW 17.0 H Plt Count Lymph % (Auto) [place] % (Auto) Lymph # [place] # Baso # Seg Neutrophils % Seg Neuts % (Manual) Lymphocytes % (Manual) Monocytes % (Manual) Eosinophils % (Manual) Basophils % (Manual) Nucleated RBC % Seg Neutrophils # Seg Neutrophils # Man Lymphocytes # (Manual) Monocytes # (Manual) Eosinophils # (Manual) Basophils # (Manual) PT INR Fibrinogen dRVVT Confirm Interp Factor V Activity POC ABG pH 7.478 H POC ABG pCO2 34.0 L POC ABG pO2 50 L ABG pO2 ABG HCO3 ABG Base Excess ABG Hemoglobin Oxyhemoglobin Sodium Potassium Chloride Carbon Dioxide BUN Creatinine Glucose POC Glucose 113 H Lactic Acid Calcium Phosphorus Magnesium Direct Bilirubin AST ALT Alkaline Phosphatase Lactate Dehydrogenase Troponin T C-Reactive Protein Total Protein Albumin Prealbumin Triglycerides Cholesterol LDL Cholesterol Direct HDL Cholesterol Urine pH Urine WBC (Auto) Urine Creatinine Urine Total Protein Fluid Total Protein Vancomycin Trough Rheumatoid Factor Complement C4 Miscellaneous Test Crossmatch 11/09/16 11/09/16 11/09/16 04:35 10:15 18:21 WBC RBC 2.68 L Hgb 7.8 L Hct 23.3 L MCV MCH MCHC RDW 17.0 H Plt Count Lymph % (Auto) [place] % (Auto) 12.1 H Lymph # [place] # 1.1 H Baso # Seg Neutrophils % Seg Neuts % (Manual) Lymphocytes % (Manual) Monocytes % (Manual) Eosinophils % (Manual) Basophils % (Manual) Nucleated RBC % Seg Neutrophils # Seg Neutrophils # Man Lymphocytes # (Manual) Monocytes # (Manual) Eosinophils # (Manual) Basophils # (Manual) PT INR Fibrinogen dRVVT Confirm Interp Factor V Activity POC ABG pH POC ABG pCO2 POC ABG pO2 ABG pO2 ABG HCO3 ABG Base Excess ABG Hemoglobin Oxyhemoglobin Sodium Potassium Chloride Carbon Dioxide BUN 51 H Creatinine 1.8 H Glucose POC Glucose 60 L Lactic Acid Calcium 8.3 L Phosphorus Magnesium Direct Bilirubin AST ALT Alkaline Phosphatase Lactate Dehydrogenase Troponin T C-Reactive Protein Total Protein Albumin Prealbumin Triglycerides Cholesterol LDL Cholesterol Direct HDL Cholesterol Urine pH Urine WBC (Auto) Urine Creatinine Urine Total Protein Fluid Total Protein Vancomycin Trough Rheumatoid Factor Complement C4 Miscellaneous Test Crossmatch 11/09/16 11/10/16 11/10/16 18:55 07:00 11:51 WBC RBC Hgb Hct MCV MCH MCHC RDW Plt Count Lymph % (Auto) [place] % (Auto) Lymph # [place] # Baso # Seg Neutrophils % Seg Neuts % (Manual) Lymphocytes % (Manual) Monocytes % (Manual) Eosinophils % (Manual) Basophils % (Manual) Nucleated RBC % Seg Neutrophils # Seg Neutrophils # Man Lymphocytes # (Manual) Monocytes # (Manual) Eosinophils # (Manual) Basophils # (Manual) PT INR Fibrinogen dRVVT Confirm Interp Factor V Activity POC ABG pH POC ABG pCO2 POC ABG pO2 ABG pO2 ABG HCO3 ABG Base Excess ABG Hemoglobin Oxyhemoglobin Sodium Potassium 3.0 L D Chloride 97.4 L Carbon Dioxide BUN 28 H Creatinine 1.3 H Glucose POC Glucose 68 L 120 H Lactic Acid Calcium 7.8 L Phosphorus Magnesium Direct Bilirubin AST ALT Alkaline Phosphatase Lactate Dehydrogenase Troponin T C-Reactive Protein Total Protein Albumin Prealbumin Triglycerides Cholesterol LDL Cholesterol Direct HDL Cholesterol Urine pH Urine WBC (Auto) Urine Creatinine Urine Total Protein Fluid Total Protein Vancomycin Trough Rheumatoid Factor Complement C4 Miscellaneous Test Crossmatch 11/10/16 11/11/16 11/11/16 14:20 06:59 06:59 WBC RBC 2.81 L Hgb 8.1 L Hct 24.4 L MCV MCH MCHC RDW 16.4 H Plt Count Lymph % (Auto) [place] % (Auto) 10.8 H Lymph # [place] # 1.0 H Baso # Seg Neutrophils % Seg Neuts % (Manual) Lymphocytes % (Manual) Monocytes % (Manual) Eosinophils % (Manual) Basophils % (Manual) Nucleated RBC % Seg Neutrophils # Seg Neutrophils # Man Lymphocytes # (Manual) Monocytes # (Manual) Eosinophils # (Manual) Basophils # (Manual) PT INR Fibrinogen dRVVT Confirm Interp Factor V Activity POC ABG pH POC ABG pCO2 POC ABG pO2 ABG pO2 ABG HCO3 ABG Base Excess ABG Hemoglobin Oxyhemoglobin Sodium Potassium Chloride Carbon Dioxide BUN Creatinine Glucose POC Glucose Lactic Acid Calcium Phosphorus Magnesium Direct Bilirubin AST ALT Alkaline Phosphatase Lactate Dehydrogenase 196 H Troponin T C-Reactive Protein Total Protein 6.1 L Albumin Prealbumin Triglycerides Cholesterol LDL Cholesterol Direct HDL Cholesterol Urine pH Urine WBC (Auto) Urine Creatinine Urine Total Protein Fluid Total Protein < 3.0 L Vancomycin Trough Rheumatoid Factor Complement C4 Miscellaneous Test Crossmatch 11/11/16 11/11/16 11/12/16 06:59 09:50 04:00 WBC RBC Hgb Hct MCV MCH MCHC RDW Plt Count Lymph % (Auto) [place] % (Auto) Lymph # [place] # Baso # Seg Neutrophils % Seg Neuts % (Manual) Lymphocytes % (Manual) Monocytes % (Manual) Eosinophils % (Manual) Basophils % (Manual) Nucleated RBC % Seg Neutrophils # Seg Neutrophils # Man Lymphocytes # (Manual) Monocytes # (Manual) Eosinophils # (Manual) Basophils # (Manual) PT INR 1.18 H Fibrinogen dRVVT Confirm Interp Factor V Activity POC ABG pH POC ABG pCO2 POC ABG pO2 ABG pO2 ABG HCO3 ABG Base Excess ABG Hemoglobin Oxyhemoglobin Sodium 136 L 133 L Potassium Chloride 96.1 L 94.8 L Carbon Dioxide 21 L BUN 37 H 42 H Creatinine 1.8 H 2.0 H Glucose POC Glucose Lactic Acid Calcium Phosphorus Magnesium Direct Bilirubin AST ALT Alkaline Phosphatase Lactate Dehydrogenase Troponin T C-Reactive Protein Total Protein Albumin Prealbumin Triglycerides Cholesterol LDL Cholesterol Direct HDL Cholesterol Urine pH Urine WBC (Auto) Urine Creatinine Urine Total Protein Fluid Total Protein Vancomycin Trough Rheumatoid Factor Complement C4 Miscellaneous Test Crossmatch 11/12/16 11/12/16 11/13/16 04:00 23:55 05:53 WBC RBC Hgb 8.9 L Hct 27.2 L MCV MCH MCHC RDW Plt Count Lymph % (Auto) [place] % (Auto) Lymph # [place] # Baso # Seg Neutrophils % Seg Neuts % (Manual) Lymphocytes % (Manual) Monocytes % (Manual) Eosinophils % (Manual) Basophils % (Manual) Nucleated RBC % Seg Neutrophils # Seg Neutrophils # Man Lymphocytes # (Manual) Monocytes # (Manual) Eosinophils # (Manual) Basophils # (Manual) PT INR Fibrinogen dRVVT Confirm Interp Factor V Activity POC ABG pH POC ABG pCO2 POC ABG pO2 ABG pO2 ABG HCO3 ABG Base Excess ABG Hemoglobin Oxyhemoglobin Sodium Potassium Chloride Carbon Dioxide BUN Creatinine Glucose POC Glucose 132 H 120 H Lactic Acid Calcium Phosphorus Magnesium Direct Bilirubin AST ALT Alkaline Phosphatase Lactate Dehydrogenase Troponin T C-Reactive Protein Total Protein Albumin Prealbumin Triglycerides Cholesterol LDL Cholesterol Direct HDL Cholesterol Urine pH Urine WBC (Auto) Urine Creatinine Urine Total Protein Fluid Total Protein Vancomycin Trough Rheumatoid Factor Complement C4 Miscellaneous Test Crossmatch 11/13/16 11/13/16 11/13/16 11:43 17:09 23:41 WBC RBC Hgb Hct MCV MCH MCHC RDW Plt Count Lymph % (Auto) [place] % (Auto) Lymph # [place] # Baso # Seg Neutrophils % Seg Neuts % (Manual) Lymphocytes % (Manual) Monocytes % (Manual) Eosinophils % (Manual) Basophils % (Manual) Nucleated RBC % Seg Neutrophils # Seg Neutrophils # Man Lymphocytes # (Manual) Monocytes # (Manual) Eosinophils # (Manual) Basophils # (Manual) PT INR Fibrinogen dRVVT Confirm Interp Factor V Activity POC ABG pH POC ABG pCO2 POC ABG pO2 ABG pO2 ABG HCO3 ABG Base Excess ABG Hemoglobin Oxyhemoglobin Sodium Potassium Chloride Carbon Dioxide BUN Creatinine Glucose POC Glucose 114 H 113 H 108 H Lactic Acid Calcium Phosphorus Magnesium Direct Bilirubin AST ALT Alkaline Phosphatase Lactate Dehydrogenase Troponin T C-Reactive Protein Total Protein Albumin Prealbumin Triglycerides Cholesterol LDL Cholesterol Direct HDL Cholesterol Urine pH Urine WBC (Auto) Urine Creatinine Urine Total Protein Fluid Total Protein Vancomycin Trough Rheumatoid Factor Complement C4 Miscellaneous Test Crossmatch 11/13/16 11/15/16 11/15/16 Unknown 00:37 03:30 WBC 11.2 H RBC 2.72 L Hgb 7.6 L Hct 23.4 L MCV MCH MCHC RDW 16.5 H Plt Count Lymph % (Auto) [place] % (Auto) Lymph # [place] # Baso # Seg Neutrophils % Seg Neuts % (Manual) Lymphocytes % (Manual) Monocytes % (Manual) Eosinophils % (Manual) Basophils % (Manual) Nucleated RBC % Seg Neutrophils # Seg Neutrophils # Man Lymphocytes # (Manual) Monocytes # (Manual) Eosinophils # (Manual) Basophils # (Manual) PT INR Fibrinogen dRVVT Confirm Interp Factor V Activity POC ABG pH POC ABG pCO2 POC ABG pO2 ABG pO2 ABG HCO3 ABG Base Excess ABG Hemoglobin Oxyhemoglobin Sodium 135 L Potassium Chloride 95.2 L Carbon Dioxide BUN 52 H Creatinine 2.2 H Glucose POC Glucose 108 H Lactic Acid Calcium Phosphorus Magnesium Direct Bilirubin AST ALT Alkaline Phosphatase Lactate Dehydrogenase Troponin T C-Reactive Protein Total Protein Albumin Prealbumin Triglycerides Cholesterol LDL Cholesterol Direct HDL Cholesterol Urine pH Urine WBC (Auto) Urine Creatinine Urine Total Protein Fluid Total Protein Vancomycin Trough Rheumatoid Factor Complement C4 Miscellaneous Test Crossmatch 11/15/16 11/15/16 11/15/16 03:30 05:04 11:50 WBC RBC Hgb Hct MCV MCH MCHC RDW Plt Count Lymph % (Auto) [place] % (Auto) Lymph # [place] # Baso # Seg Neutrophils % Seg Neuts % (Manual) Lymphocytes % (Manual) Monocytes % (Manual) Eosinophils % (Manual) Basophils % (Manual) Nucleated RBC % Seg Neutrophils # Seg Neutrophils # Man Lymphocytes # (Manual) Monocytes # (Manual) Eosinophils # (Manual) Basophils # (Manual) PT INR Fibrinogen dRVVT Confirm Interp Factor V Activity POC ABG pH POC ABG pCO2 POC ABG pO2 ABG pO2 ABG HCO3 ABG Base Excess ABG Hemoglobin Oxyhemoglobin Sodium Potassium 3.4 L Chloride Carbon Dioxide BUN 25 H Creatinine 1.5 H Glucose 103 H POC Glucose 121 H 144 H Lactic Acid Calcium Phosphorus Magnesium Direct Bilirubin AST ALT Alkaline Phosphatase Lactate Dehydrogenase Troponin T C-Reactive Protein Total Protein Albumin Prealbumin Triglycerides Cholesterol LDL Cholesterol Direct HDL Cholesterol Urine pH Urine WBC (Auto) Urine Creatinine Urine Total Protein Fluid Total Protein Vancomycin Trough Rheumatoid Factor Complement C4 Miscellaneous Test Crossmatch 11/15/16 11/15/16 11/16/16 21:28 23:20 11:44 WBC RBC Hgb Hct MCV MCH MCHC RDW Plt Count Lymph % (Auto) [place] % (Auto) Lymph # [place] # Baso # Seg Neutrophils % Seg Neuts % (Manual) Lymphocytes % (Manual) Monocytes % (Manual) Eosinophils % (Manual) Basophils % (Manual) Nucleated RBC % Seg Neutrophils # Seg Neutrophils # Man Lymphocytes # (Manual) Monocytes # (Manual) Eosinophils # (Manual) Basophils # (Manual) PT INR Fibrinogen dRVVT Confirm Interp Factor V Activity POC ABG pH 7.462 H POC ABG pCO2 POC ABG pO2 71 L ABG pO2 ABG HCO3 ABG Base Excess ABG Hemoglobin Oxyhemoglobin Sodium Potassium Chloride Carbon Dioxide BUN Creatinine Glucose POC Glucose 116 H 133 H Lactic Acid Calcium Phosphorus Magnesium Direct Bilirubin AST ALT Alkaline Phosphatase Lactate Dehydrogenase Troponin T C-Reactive Protein Total Protein Albumin Prealbumin Triglycerides Cholesterol LDL Cholesterol Direct HDL Cholesterol Urine pH Urine WBC (Auto) Urine Creatinine Urine Total Protein Fluid Total Protein Vancomycin Trough Rheumatoid Factor Complement C4 Miscellaneous Test Crossmatch 11/16/16 11/16/16 11/16/16 12:20 17:05 23:35 WBC 11.7 H RBC 2.73 L Hgb 7.6 L Hct 23.7 L MCV MCH MCHC RDW 16.6 H Plt Count Lymph % (Auto) [place] % (Auto) Lymph # [place] # Baso # Seg Neutrophils % Seg Neuts % (Manual) Lymphocytes % (Manual) Monocytes % (Manual) Eosinophils % (Manual) Basophils % (Manual) Nucleated RBC % Seg Neutrophils # Seg Neutrophils # Man Lymphocytes # (Manual) Monocytes # (Manual) Eosinophils # (Manual) Basophils # (Manual) PT INR Fibrinogen dRVVT Confirm Interp Factor V Activity POC ABG pH POC ABG pCO2 POC ABG pO2 ABG pO2 ABG HCO3 ABG Base Excess ABG Hemoglobin Oxyhemoglobin Sodium Potassium Chloride Carbon Dioxide BUN Creatinine Glucose POC Glucose 154 H 125 H Lactic Acid Calcium Phosphorus Magnesium Direct Bilirubin AST ALT Alkaline Phosphatase Lactate Dehydrogenase Troponin T C-Reactive Protein Total Protein Albumin Prealbumin Triglycerides Cholesterol LDL Cholesterol Direct HDL Cholesterol Urine pH Urine WBC (Auto) Urine Creatinine Urine Total Protein Fluid Total Protein Vancomycin Trough Rheumatoid Factor Complement C4 Miscellaneous Test Crossmatch 11/17/16 11/17/16 11/17/16 03:20 03:20 03:20 WBC RBC 2.55 L Hgb 7.3 L Hct 21.9 L MCV MCH MCHC RDW 16.6 H Plt Count Lymph % (Auto) [place] % (Auto) 11.5 H Lymph # [place] # 1.1 H Baso # Seg Neutrophils % Seg Neuts % (Manual) Lymphocytes % (Manual) Monocytes % (Manual) Eosinophils % (Manual) Basophils % (Manual) Nucleated RBC % Seg Neutrophils # Seg Neutrophils # Man Lymphocytes # (Manual) Monocytes # (Manual) Eosinophils # (Manual) Basophils # (Manual) PT 16.8 H INR 1.37 H Fibrinogen dRVVT Confirm Interp Factor V Activity POC ABG pH POC ABG pCO2 POC ABG pO2 ABG pO2 ABG HCO3 ABG Base Excess ABG Hemoglobin Oxyhemoglobin Sodium Potassium 3.5 L Chloride Carbon Dioxide BUN 21 H Creatinine Glucose POC Glucose Lactic Acid Calcium 7.9 L Phosphorus Magnesium Direct Bilirubin AST ALT Alkaline Phosphatase Lactate Dehydrogenase Troponin T C-Reactive Protein Total Protein Albumin Prealbumin Triglycerides Cholesterol LDL Cholesterol Direct HDL Cholesterol Urine pH Urine WBC (Auto) Urine Creatinine Urine Total Protein Fluid Total Protein Vancomycin Trough Rheumatoid Factor Complement C4 Miscellaneous Test Crossmatch 11/17/16 11/17/16 11/17/16 06:34 11:21 21:22 WBC RBC Hgb Hct MCV MCH MCHC RDW Plt Count Lymph % (Auto) [place] % (Auto) Lymph # [place] # Baso # Seg Neutrophils % Seg Neuts % (Manual) Lymphocytes % (Manual) Monocytes % (Manual) Eosinophils % (Manual) Basophils % (Manual) Nucleated RBC % Seg Neutrophils # Seg Neutrophils # Man Lymphocytes # (Manual) Monocytes # (Manual) Eosinophils # (Manual) Basophils # (Manual) PT INR Fibrinogen dRVVT Confirm Interp Factor V Activity POC ABG pH 7.467 H POC ABG pCO2 POC ABG pO2 73 L ABG pO2 ABG HCO3 ABG Base Excess ABG Hemoglobin Oxyhemoglobin Sodium Potassium Chloride Carbon Dioxide BUN Creatinine Glucose POC Glucose 121 H 119 H Lactic Acid Calcium Phosphorus Magnesium Direct Bilirubin AST ALT Alkaline Phosphatase Lactate Dehydrogenase Troponin T C-Reactive Protein Total Protein Albumin Prealbumin Triglycerides Cholesterol LDL Cholesterol Direct HDL Cholesterol Urine pH Urine WBC (Auto) Urine Creatinine Urine Total Protein Fluid Total Protein Vancomycin Trough Rheumatoid Factor Complement C4 Miscellaneous Test Crossmatch 11/18/16 11/18/16 11/19/16 12:16 17:19 00:00 WBC RBC Hgb Hct MCV MCH MCHC RDW Plt Count Lymph % (Auto) [place] % (Auto) Lymph # [place] # Baso # Seg Neutrophils % Seg Neuts % (Manual) Lymphocytes % (Manual) Monocytes % (Manual) Eosinophils % (Manual) Basophils % (Manual) Nucleated RBC % Seg Neutrophils # Seg Neutrophils # Man Lymphocytes # (Manual) Monocytes # (Manual) Eosinophils # (Manual) Basophils # (Manual) PT INR Fibrinogen dRVVT Confirm Interp Factor V Activity POC ABG pH POC ABG pCO2 POC ABG pO2 ABG pO2 ABG HCO3 ABG Base Excess ABG Hemoglobin Oxyhemoglobin Sodium Potassium Chloride Carbon Dioxide BUN Creatinine Glucose POC Glucose 124 H 162 H 139 H Lactic Acid Calcium Phosphorus Magnesium Direct Bilirubin AST ALT Alkaline Phosphatase Lactate Dehydrogenase Troponin T C-Reactive Protein Total Protein Albumin Prealbumin Triglycerides Cholesterol LDL Cholesterol Direct HDL Cholesterol Urine pH Urine WBC (Auto) Urine Creatinine Urine Total Protein Fluid Total Protein Vancomycin Trough Rheumatoid Factor Complement C4 Miscellaneous Test Crossmatch 11/19/16 11/19/16 11/20/16 05:00 12:43 00:40 WBC RBC Hgb Hct MCV MCH MCHC RDW Plt Count Lymph % (Auto) [place] % (Auto) Lymph # [place] # Baso # Seg Neutrophils % Seg Neuts % (Manual) Lymphocytes % (Manual) Monocytes % (Manual) Eosinophils % (Manual) Basophils % (Manual) Nucleated RBC % Seg Neutrophils # Seg Neutrophils # Man Lymphocytes # (Manual) Monocytes # (Manual) Eosinophils # (Manual) Basophils # (Manual) PT INR Fibrinogen dRVVT Confirm Interp Factor V Activity POC ABG pH POC ABG pCO2 POC ABG pO2 ABG pO2 ABG HCO3 ABG Base Excess ABG Hemoglobin Oxyhemoglobin Sodium Potassium Chloride Carbon Dioxide BUN Creatinine Glucose POC Glucose 110 H 125 H 136 H Lactic Acid Calcium Phosphorus Magnesium Direct Bilirubin AST ALT Alkaline Phosphatase Lactate Dehydrogenase Troponin T C-Reactive Protein Total Protein Albumin Prealbumin Triglycerides Cholesterol LDL Cholesterol Direct HDL Cholesterol Urine pH Urine WBC (Auto) Urine Creatinine Urine Total Protein Fluid Total Protein Vancomycin Trough Rheumatoid Factor Complement C4 Miscellaneous Test Crossmatch 11/20/16 11/20/16 11/20/16 05:00 05:00 05:51 WBC 13.1 H RBC 2.74 L Hgb 7.7 L Hct 23.6 L MCV MCH MCHC RDW 16.9 H Plt Count Lymph % (Auto) [place] % (Auto) 10.8 H Lymph # [place] # 1.4 H Baso # Seg Neutrophils % Seg Neuts % (Manual) Lymphocytes % (Manual) Monocytes % (Manual) Eosinophils % (Manual) Basophils % (Manual) Nucleated RBC % Seg Neutrophils # 7.9 H Seg Neutrophils # Man Lymphocytes # (Manual) Monocytes # (Manual) Eosinophils # (Manual) Basophils # (Manual) PT INR Fibrinogen dRVVT Confirm Interp Factor V Activity POC ABG pH POC ABG pCO2 POC ABG pO2 ABG pO2 ABG HCO3 ABG Base Excess ABG Hemoglobin Oxyhemoglobin Sodium Potassium Chloride Carbon Dioxide BUN 31 H Creatinine 1.8 H Glucose 129 H POC Glucose 133 H Lactic Acid Calcium Phosphorus Magnesium Direct Bilirubin AST ALT Alkaline Phosphatase Lactate Dehydrogenase Troponin T C-Reactive Protein Total Protein Albumin Prealbumin Triglycerides Cholesterol LDL Cholesterol Direct HDL Cholesterol Urine pH Urine WBC (Auto) Urine Creatinine Urine Total Protein Fluid Total Protein Vancomycin Trough Rheumatoid Factor Complement C4 Miscellaneous Test Crossmatch 11/20/16 11/20/16 11/21/16 12:40 18:10 01:20 WBC RBC Hgb Hct MCV MCH MCHC RDW Plt Count Lymph % (Auto) [place] % (Auto) Lymph # [place] # Baso # Seg Neutrophils % Seg Neuts % (Manual) Lymphocytes % (Manual) Monocytes % (Manual) Eosinophils % (Manual) Basophils % (Manual) Nucleated RBC % Seg Neutrophils # Seg Neutrophils # Man Lymphocytes # (Manual) Monocytes # (Manual) Eosinophils # (Manual) Basophils # (Manual) PT INR Fibrinogen dRVVT Confirm Interp Factor V Activity POC ABG pH POC ABG pCO2 POC ABG pO2 ABG pO2 ABG HCO3 ABG Base Excess ABG Hemoglobin Oxyhemoglobin Sodium Potassium Chloride Carbon Dioxide BUN Creatinine Glucose POC Glucose 134 H 138 H 136 H Lactic Acid Calcium Phosphorus Magnesium Direct Bilirubin AST ALT Alkaline Phosphatase Lactate Dehydrogenase Troponin T C-Reactive Protein Total Protein Albumin Prealbumin Triglycerides Cholesterol LDL Cholesterol Direct HDL Cholesterol Urine pH Urine WBC (Auto) Urine Creatinine Urine Total Protein Fluid Total Protein Vancomycin Trough Rheumatoid Factor Complement C4 Miscellaneous Test Crossmatch 11/21/16 11/21/16 11/21/16 07:04 07:45 07:45 WBC 22.0 H RBC 2.91 L Hgb 8.2 L Hct 25.4 L MCV MCH MCHC RDW 17.1 H Plt Count Lymph % (Auto) [place] % (Auto) Lymph # [place] # Baso # Seg Neutrophils % Seg Neuts % (Manual) Lymphocytes % (Manual) 8.0 L Monocytes % (Manual) Eosinophils % (Manual) Basophils % (Manual) Nucleated RBC % Seg Neutrophils # Seg Neutrophils # Man 14.7 H Lymphocytes # (Manual) Monocytes # (Manual) 1.1 H Eosinophils # (Manual) Basophils # (Manual) PT INR Fibrinogen dRVVT Confirm Interp Factor V Activity POC ABG pH POC ABG pCO2 POC ABG pO2 ABG pO2 ABG HCO3 ABG Base Excess ABG Hemoglobin Oxyhemoglobin Sodium Potassium Chloride Carbon Dioxide BUN 42 H Creatinine 2.0 H Glucose POC Glucose 108 H Lactic Acid Calcium Phosphorus Magnesium Direct Bilirubin AST ALT Alkaline Phosphatase Lactate Dehydrogenase Troponin T C-Reactive Protein Total Protein Albumin Prealbumin Triglycerides Cholesterol LDL Cholesterol Direct HDL Cholesterol Urine pH Urine WBC (Auto) Urine Creatinine Urine Total Protein Fluid Total Protein Vancomycin Trough Rheumatoid Factor Complement C4 Miscellaneous Test Crossmatch 11/21/16 11/21/16 11/21/16 08:38 10:09 11:20 WBC RBC Hgb Hct MCV MCH MCHC RDW Plt Count Lymph % (Auto) [place] % (Auto) Lymph # [place] # Baso # Seg Neutrophils % Seg Neuts % (Manual) Lymphocytes % (Manual) Monocytes % (Manual) Eosinophils % (Manual) Basophils % (Manual) Nucleated RBC % Seg Neutrophils # Seg Neutrophils # Man Lymphocytes # (Manual) Monocytes # (Manual) Eosinophils # (Manual) Basophils # (Manual) PT INR Fibrinogen dRVVT Confirm Interp Factor V Activity POC ABG pH 7.346 L POC ABG pCO2 34.4 L POC ABG pO2 314 H ABG pO2 ABG HCO3 ABG Base Excess ABG Hemoglobin Oxyhemoglobin Sodium Potassium Chloride Carbon Dioxide BUN Creatinine Glucose POC Glucose 195 H 153 H Lactic Acid Calcium Phosphorus Magnesium Direct Bilirubin AST ALT Alkaline Phosphatase Lactate Dehydrogenase Troponin T C-Reactive Protein Total Protein Albumin Prealbumin Triglycerides Cholesterol LDL Cholesterol Direct HDL Cholesterol Urine pH Urine WBC (Auto) Urine Creatinine Urine Total Protein Fluid Total Protein Vancomycin Trough Rheumatoid Factor Complement C4 Miscellaneous Test Crossmatch 11/21/16 11/22/16 11/22/16 23:37 04:48 05:00 WBC 29.7 H RBC 2.73 L Hgb 7.5 L Hct 24.2 L MCV MCH 27 L MCHC RDW 17.4 H Plt Count Lymph % (Auto) [place] % (Auto) Lymph # [place] # Baso # Seg Neutrophils % Seg Neuts % (Manual) Lymphocytes % (Manual) 7.0 L Monocytes % (Manual) Eosinophils % (Manual) Basophils % (Manual) Nucleated RBC % Seg Neutrophils # Seg Neutrophils # Man 15.4 H Lymphocytes # (Manual) Monocytes # (Manual) Eosinophils # (Manual) Basophils # (Manual) PT INR Fibrinogen dRVVT Confirm Interp Factor V Activity POC ABG pH POC ABG pCO2 24.6 L POC ABG pO2 189 H ABG pO2 ABG HCO3 ABG Base Excess ABG Hemoglobin Oxyhemoglobin Sodium Potassium Chloride Carbon Dioxide BUN Creatinine Glucose POC Glucose 65 L Lactic Acid Calcium Phosphorus Magnesium Direct Bilirubin AST ALT Alkaline Phosphatase Lactate Dehydrogenase Troponin T C-Reactive Protein Total Protein Albumin Prealbumin Triglycerides Cholesterol LDL Cholesterol Direct HDL Cholesterol Urine pH Urine WBC (Auto) Urine Creatinine Urine Total Protein Fluid Total Protein Vancomycin Trough Rheumatoid Factor Complement C4 Miscellaneous Test Crossmatch 11/22/16 11/23/16 11/23/16 05:00 03:44 04:06 WBC RBC 2.52 L Hgb 7.2 L Hct 21.5 L MCV MCH MCHC RDW 17.1 H Plt Count Lymph % (Auto) [place] % (Auto) 12.4 H Lymph # [place] # 1.4 H Baso # Seg Neutrophils % Seg Neuts % (Manual) Lymphocytes % (Manual) Monocytes % (Manual) Eosinophils % (Manual) Basophils % (Manual) Nucleated RBC % Seg Neutrophils # Seg Neutrophils # Man Lymphocytes # (Manual) Monocytes # (Manual) Eosinophils # (Manual) Basophils # (Manual) PT INR Fibrinogen dRVVT Confirm Interp Factor V Activity POC ABG pH 7.493 H POC ABG pCO2 29.5 L POC ABG pO2 49 L ABG pO2 ABG HCO3 ABG Base Excess ABG Hemoglobin Oxyhemoglobin Sodium 134 L Potassium Chloride 95.9 L Carbon Dioxide 14 L D BUN 51 H Creatinine 2.6 H Glucose POC Glucose Lactic Acid Calcium Phosphorus Magnesium Direct Bilirubin AST ALT Alkaline Phosphatase Lactate Dehydrogenase Troponin T C-Reactive Protein Total Protein Albumin Prealbumin Triglycerides Cholesterol LDL Cholesterol Direct HDL Cholesterol Urine pH Urine WBC (Auto) Urine Creatinine Urine Total Protein Fluid Total Protein Vancomycin Trough Rheumatoid Factor Complement C4 Miscellaneous Test Crossmatch 11/23/16 11/23/16 11/24/16 04:06 11:29 06:39 WBC RBC Hgb Hct MCV MCH MCHC RDW Plt Count Lymph % (Auto) [place] % (Auto) Lymph # [place] # Baso # Seg Neutrophils % Seg Neuts % (Manual) Lymphocytes % (Manual) Monocytes % (Manual) Eosinophils % (Manual) Basophils % (Manual) Nucleated RBC % Seg Neutrophils # Seg Neutrophils # Man Lymphocytes # (Manual) Monocytes # (Manual) Eosinophils # (Manual) Basophils # (Manual) PT INR Fibrinogen dRVVT Confirm Interp Factor V Activity POC ABG pH POC ABG pCO2 POC ABG pO2 ABG pO2 ABG HCO3 ABG Base Excess ABG Hemoglobin Oxyhemoglobin Sodium 136 L Potassium Chloride 95.2 L Carbon Dioxide BUN 60 H Creatinine 2.9 H Glucose POC Glucose 69 L 305 H Lactic Acid Calcium Phosphorus Magnesium 1.60 L Direct Bilirubin AST ALT Alkaline Phosphatase Lactate Dehydrogenase Troponin T C-Reactive Protein Total Protein Albumin Prealbumin Triglycerides Cholesterol LDL Cholesterol Direct HDL Cholesterol Urine pH Urine WBC (Auto) Urine Creatinine Urine Total Protein Fluid Total Protein Vancomycin Trough Rheumatoid Factor Complement C4 Miscellaneous Test Crossmatch 11/24/16 11/24/16 11/24/16 06:43 08:08 08:08 WBC 11.2 H RBC 2.47 L Hgb 6.8 L Hct 20.6 L MCV MCH MCHC RDW 17.0 H Plt Count Lymph % (Auto) [place] % (Auto) 10.3 H Lymph # [place] # 1.2 H Baso # Seg Neutrophils % Seg Neuts % (Manual) Lymphocytes % (Manual) Monocytes % (Manual) Eosinophils % (Manual) Basophils % (Manual) Nucleated RBC % Seg Neutrophils # Seg Neutrophils # Man Lymphocytes # (Manual) Monocytes # (Manual) Eosinophils # (Manual) Basophils # (Manual) PT INR Fibrinogen dRVVT Confirm Interp Factor V Activity POC ABG pH POC ABG pCO2 POC ABG pO2 ABG pO2 ABG HCO3 ABG Base Excess ABG Hemoglobin Oxyhemoglobin Sodium 135 L Potassium Chloride 96.3 L Carbon Dioxide BUN 61 H Creatinine 3.1 H Glucose POC Glucose 62 L Lactic Acid Calcium 8.2 L Phosphorus Magnesium Direct Bilirubin AST ALT Alkaline Phosphatase Lactate Dehydrogenase Troponin T C-Reactive Protein Total Protein Albumin Prealbumin Triglycerides Cholesterol LDL Cholesterol Direct HDL Cholesterol Urine pH Urine WBC (Auto) Urine Creatinine Urine Total Protein Fluid Total Protein Vancomycin Trough Rheumatoid Factor Complement C4 Miscellaneous Test Crossmatch 11/24/16 11/24/16 11/24/16 08:34 11:20 12:41 WBC RBC Hgb Hct MCV MCH MCHC RDW Plt Count Lymph % (Auto) [place] % (Auto) Lymph # [place] # Baso # Seg Neutrophils % Seg Neuts % (Manual) Lymphocytes % (Manual) Monocytes % (Manual) Eosinophils % (Manual) Basophils % (Manual) Nucleated RBC % Seg Neutrophils # Seg Neutrophils # Man Lymphocytes # (Manual) Monocytes # (Manual) Eosinophils # (Manual) Basophils # (Manual) PT INR Fibrinogen dRVVT Confirm Interp Factor V Activity POC ABG pH POC ABG pCO2 POC ABG pO2 ABG pO2 ABG HCO3 ABG Base Excess ABG Hemoglobin Oxyhemoglobin Sodium Potassium Chloride Carbon Dioxide BUN Creatinine Glucose POC Glucose 108 H Lactic Acid Calcium Phosphorus Magnesium 1.60 L Direct Bilirubin AST ALT Alkaline Phosphatase Lactate Dehydrogenase Troponin T C-Reactive Protein Total Protein Albumin Prealbumin Triglycerides Cholesterol LDL Cholesterol Direct HDL Cholesterol Urine pH Urine WBC (Auto) Urine Creatinine Urine Total Protein Fluid Total Protein Vancomycin Trough Rheumatoid Factor Complement C4 Miscellaneous Test Crossmatch See Detail 11/25/16 11/25/16 11/25/16 00:03 04:42 04:42 WBC RBC 3.03 L Hgb 8.6 L Hct 25.3 L MCV MCH MCHC RDW 16.2 H Plt Count Lymph % (Auto) [place] % (Auto) 8.1 H Lymph # [place] # Baso # Seg Neutrophils % 71.3 H Seg Neuts % (Manual) Lymphocytes % (Manual) Monocytes % (Manual) Eosinophils % (Manual) Basophils % (Manual) Nucleated RBC % Seg Neutrophils # Seg Neutrophils # Man Lymphocytes # (Manual) Monocytes # (Manual) Eosinophils # (Manual) Basophils # (Manual) PT INR Fibrinogen dRVVT Confirm Interp Factor V Activity POC ABG pH POC ABG pCO2 POC ABG pO2 ABG pO2 ABG HCO3 ABG Base Excess ABG Hemoglobin Oxyhemoglobin Sodium Potassium Chloride Carbon Dioxide BUN 61 H Creatinine 3.0 H Glucose 102 H POC Glucose 113 H Lactic Acid Calcium 8.2 L Phosphorus Magnesium Direct Bilirubin AST ALT Alkaline Phosphatase 142 H Lactate Dehydrogenase Troponin T C-Reactive Protein Total Protein 5.7 L Albumin 1.5 L Prealbumin Triglycerides Cholesterol LDL Cholesterol Direct HDL Cholesterol Urine pH Urine WBC (Auto) Urine Creatinine Urine Total Protein Fluid Total Protein Vancomycin Trough Rheumatoid Factor Complement C4 Miscellaneous Test Crossmatch 11/25/16 11/25/16 11/25/16 05:12 11:31 14:12 WBC RBC Hgb Hct MCV MCH MCHC RDW Plt Count Lymph % (Auto) [place] % (Auto) Lymph # [place] # Baso # Seg Neutrophils % Seg Neuts % (Manual) Lymphocytes % (Manual) Monocytes % (Manual) Eosinophils % (Manual) Basophils % (Manual) Nucleated RBC % Seg Neutrophils # Seg Neutrophils # Man Lymphocytes # (Manual) Monocytes # (Manual) Eosinophils # (Manual) Basophils # (Manual) PT INR Fibrinogen dRVVT Confirm Interp Factor V Activity POC ABG pH 7.487 H POC ABG pCO2 POC ABG pO2 153 H ABG pO2 ABG HCO3 ABG Base Excess ABG Hemoglobin Oxyhemoglobin Sodium Potassium Chloride Carbon Dioxide BUN Creatinine Glucose POC Glucose 131 H 140 H Lactic Acid Calcium Phosphorus Magnesium Direct Bilirubin AST ALT Alkaline Phosphatase Lactate Dehydrogenase Troponin T C-Reactive Protein Total Protein Albumin Prealbumin Triglycerides Cholesterol LDL Cholesterol Direct HDL Cholesterol Urine pH Urine WBC (Auto) Urine Creatinine Urine Total Protein Fluid Total Protein Vancomycin Trough Rheumatoid Factor Complement C4 Miscellaneous Test Crossmatch 11/25/16 11/26/16 11/26/16 17:23 00:09 05:13 WBC RBC 2.94 L Hgb 8.4 L Hct 24.6 L MCV MCH MCHC RDW 16.4 H Plt Count Lymph % (Auto) [place] % (Auto) 12.3 H Lymph # [place] # 1.1 H Baso # Seg Neutrophils % Seg Neuts % (Manual) Lymphocytes % (Manual) Monocytes % (Manual) Eosinophils % (Manual) Basophils % (Manual) Nucleated RBC % Seg Neutrophils # Seg Neutrophils # Man Lymphocytes # (Manual) Monocytes # (Manual) Eosinophils # (Manual) Basophils # (Manual) PT INR Fibrinogen dRVVT Confirm Interp Factor V Activity POC ABG pH POC ABG pCO2 POC ABG pO2 ABG pO2 ABG HCO3 ABG Base Excess ABG Hemoglobin Oxyhemoglobin Sodium Potassium Chloride Carbon Dioxide BUN Creatinine Glucose POC Glucose 146 H 112 H Lactic Acid Calcium Phosphorus Magnesium Direct Bilirubin AST ALT Alkaline Phosphatase Lactate Dehydrogenase Troponin T C-Reactive Protein Total Protein Albumin Prealbumin Triglycerides Cholesterol LDL Cholesterol Direct HDL Cholesterol Urine pH Urine WBC (Auto) Urine Creatinine Urine Total Protein Fluid Total Protein Vancomycin Trough Rheumatoid Factor Complement C4 Miscellaneous Test Crossmatch 11/26/16 11/26/16 11/26/16 05:13 05:28 11:53 WBC RBC Hgb Hct MCV MCH MCHC RDW Plt Count Lymph % (Auto) [place] % (Auto) Lymph # [place] # Baso # Seg Neutrophils % Seg Neuts % (Manual) Lymphocytes % (Manual) Monocytes % (Manual) Eosinophils % (Manual) Basophils % (Manual) Nucleated RBC % Seg Neutrophils # Seg Neutrophils # Man Lymphocytes # (Manual) Monocytes # (Manual) Eosinophils # (Manual) Basophils # (Manual) PT INR Fibrinogen dRVVT Confirm Interp Factor V Activity POC ABG pH POC ABG pCO2 POC ABG pO2 ABG pO2 ABG HCO3 ABG Base Excess ABG Hemoglobin Oxyhemoglobin Sodium Potassium Chloride 97.8 L Carbon Dioxide BUN 37 H Creatinine 2.0 H Glucose 109 H POC Glucose 117 H 111 H Lactic Acid Calcium 7.9 L Phosphorus 1.80 L D Magnesium Direct Bilirubin AST ALT Alkaline Phosphatase Lactate Dehydrogenase Troponin T C-Reactive Protein Total Protein Albumin Prealbumin Triglycerides Cholesterol LDL Cholesterol Direct HDL Cholesterol Urine pH Urine WBC (Auto) Urine Creatinine Urine Total Protein Fluid Total Protein Vancomycin Trough Rheumatoid Factor Complement C4 Miscellaneous Test Crossmatch 11/26/16 11/27/16 11/27/16 17:14 04:50 06:02 WBC RBC Hgb Hct MCV MCH MCHC RDW Plt Count Lymph % (Auto) [place] % (Auto) Lymph # [place] # Baso # Seg Neutrophils % Seg Neuts % (Manual) Lymphocytes % (Manual) Monocytes % (Manual) Eosinophils % (Manual) Basophils % (Manual) Nucleated RBC % Seg Neutrophils # Seg Neutrophils # Man Lymphocytes # (Manual) Monocytes # (Manual) Eosinophils # (Manual) Basophils # (Manual) PT INR Fibrinogen dRVVT Confirm Interp Factor V Activity POC ABG pH POC ABG pCO2 POC ABG pO2 ABG pO2 75.2 L ABG HCO3 26.4 H ABG Base Excess ABG Hemoglobin 7.6 L Oxyhemoglobin 94.8 L Sodium Potassium Chloride Carbon Dioxide BUN 49 H Creatinine 2.3 H Glucose POC Glucose 115 H Lactic Acid Calcium Phosphorus 1.50 L Magnesium Direct Bilirubin AST ALT Alkaline Phosphatase Lactate Dehydrogenase Troponin T C-Reactive Protein Total Protein Albumin Prealbumin Triglycerides Cholesterol LDL Cholesterol Direct HDL Cholesterol Urine pH Urine WBC (Auto) Urine Creatinine Urine Total Protein Fluid Total Protein Vancomycin Trough Rheumatoid Factor Complement C4 Miscellaneous Test Crossmatch 11/27/16 11/27/16 11/27/16 06:02 11:25 17:25 WBC 11.6 H RBC 2.75 L Hgb 7.6 L Hct 23.4 L MCV MCH MCHC RDW 16.5 H Plt Count Lymph % (Auto) [place] % (Auto) Lymph # [place] # Baso # Seg Neutrophils % Seg Neuts % (Manual) Lymphocytes % (Manual) Monocytes % (Manual) Eosinophils % (Manual) Basophils % (Manual) Nucleated RBC % Seg Neutrophils # Seg Neutrophils # Man Lymphocytes # (Manual) Monocytes # (Manual) Eosinophils # (Manual) Basophils # (Manual) PT INR Fibrinogen dRVVT Confirm Interp Factor V Activity POC ABG pH POC ABG pCO2 POC ABG pO2 ABG pO2 ABG HCO3 ABG Base Excess ABG Hemoglobin Oxyhemoglobin Sodium Potassium Chloride Carbon Dioxide BUN Creatinine Glucose POC Glucose 114 H 126 H Lactic Acid Calcium Phosphorus Magnesium Direct Bilirubin AST ALT Alkaline Phosphatase Lactate Dehydrogenase Troponin T C-Reactive Protein Total Protein Albumin Prealbumin Triglycerides Cholesterol LDL Cholesterol Direct HDL Cholesterol Urine pH Urine WBC (Auto) Urine Creatinine Urine Total Protein Fluid Total Protein Vancomycin Trough Rheumatoid Factor Complement C4 Miscellaneous Test Crossmatch 11/28/16 11/28/16 11/28/16 04:45 05:33 05:44 WBC RBC Hgb Hct MCV MCH MCHC RDW Plt Count Lymph % (Auto) [place] % (Auto) Lymph # [place] # Baso # Seg Neutrophils % Seg Neuts % (Manual) Lymphocytes % (Manual) Monocytes % (Manual) Eosinophils % (Manual) Basophils % (Manual) Nucleated RBC % Seg Neutrophils # Seg Neutrophils # Man Lymphocytes # (Manual) Monocytes # (Manual) Eosinophils # (Manual) Basophils # (Manual) PT INR Fibrinogen dRVVT Confirm Interp Factor V Activity POC ABG pH POC ABG pCO2 POC ABG pO2 ABG pO2 99.3 H ABG HCO3 ABG Base Excess ABG Hemoglobin 8.3 L Oxyhemoglobin Sodium Potassium Chloride Carbon Dioxide BUN 63 H Creatinine 2.4 H Glucose 102 H POC Glucose 108 H Lactic Acid Calcium Phosphorus 1.80 L Magnesium Direct Bilirubin AST ALT Alkaline Phosphatase Lactate Dehydrogenase Troponin T C-Reactive Protein Total Protein Albumin Prealbumin Triglycerides Cholesterol LDL Cholesterol Direct HDL Cholesterol Urine pH Urine WBC (Auto) Urine Creatinine Urine Total Protein Fluid Total Protein Vancomycin Trough Rheumatoid Factor Complement C4 Miscellaneous Test Crossmatch 11/28/16 11/28/16 11/28/16 12:31 16:09 23:46 WBC RBC Hgb Hct MCV MCH MCHC RDW Plt Count Lymph % (Auto) [place] % (Auto) Lymph # [place] # Baso # Seg Neutrophils % Seg Neuts % (Manual) Lymphocytes % (Manual) Monocytes % (Manual) Eosinophils % (Manual) Basophils % (Manual) Nucleated RBC % Seg Neutrophils # Seg Neutrophils # Man Lymphocytes # (Manual) Monocytes # (Manual) Eosinophils # (Manual) Basophils # (Manual) PT INR Fibrinogen dRVVT Confirm Interp Factor V Activity POC ABG pH POC ABG pCO2 POC ABG pO2 ABG pO2 ABG HCO3 ABG Base Excess ABG Hemoglobin Oxyhemoglobin Sodium Potassium Chloride Carbon Dioxide BUN Creatinine Glucose POC Glucose 126 H 111 H 119 H Lactic Acid Calcium Phosphorus Magnesium Direct Bilirubin AST ALT Alkaline Phosphatase Lactate Dehydrogenase Troponin T C-Reactive Protein Total Protein Albumin Prealbumin Triglycerides Cholesterol LDL Cholesterol Direct HDL Cholesterol Urine pH Urine WBC (Auto) Urine Creatinine Urine Total Protein Fluid Total Protein Vancomycin Trough Rheumatoid Factor Complement C4 Miscellaneous Test Crossmatch 11/29/16 11/29/16 11/29/16 03:33 04:52 05:10 WBC RBC Hgb Hct MCV MCH MCHC RDW Plt Count Lymph % (Auto) [place] % (Auto) Lymph # [place] # Baso # Seg Neutrophils % Seg Neuts % (Manual) Lymphocytes % (Manual) Monocytes % (Manual) Eosinophils % (Manual) Basophils % (Manual) Nucleated RBC % Seg Neutrophils # Seg Neutrophils # Man Lymphocytes # (Manual) Monocytes # (Manual) Eosinophils # (Manual) Basophils # (Manual) PT INR Fibrinogen dRVVT Confirm Interp Factor V Activity POC ABG pH POC ABG pCO2 POC ABG pO2 ABG pO2 ABG HCO3 ABG Base Excess ABG Hemoglobin 7.0 L Oxyhemoglobin 94.9 L Sodium Potassium Chloride Carbon Dioxide BUN 73 H Creatinine 2.7 H Glucose POC Glucose 108 H Lactic Acid Calcium Phosphorus Magnesium Direct Bilirubin AST ALT Alkaline Phosphatase Lactate Dehydrogenase Troponin T C-Reactive Protein Total Protein Albumin Prealbumin Triglycerides Cholesterol LDL Cholesterol Direct HDL Cholesterol Urine pH Urine WBC (Auto) Urine Creatinine Urine Total Protein Fluid Total Protein Vancomycin Trough Rheumatoid Factor Complement C4 Miscellaneous Test Crossmatch 11/29/16 11/29/16 11/29/16 12:16 18:05 23:46 WBC RBC Hgb Hct MCV MCH MCHC RDW Plt Count Lymph % (Auto) [place] % (Auto) Lymph # [place] # Baso # Seg Neutrophils % Seg Neuts % (Manual) Lymphocytes % (Manual) Monocytes % (Manual) Eosinophils % (Manual) Basophils % (Manual) Nucleated RBC % Seg Neutrophils # Seg Neutrophils # Man Lymphocytes # (Manual) Monocytes # (Manual) Eosinophils # (Manual) Basophils # (Manual) PT INR Fibrinogen dRVVT Confirm Interp Factor V Activity POC ABG pH POC ABG pCO2 POC ABG pO2 ABG pO2 ABG HCO3 ABG Base Excess ABG Hemoglobin Oxyhemoglobin Sodium Potassium Chloride Carbon Dioxide BUN Creatinine Glucose POC Glucose 133 H 146 H 141 H Lactic Acid Calcium Phosphorus Magnesium Direct Bilirubin AST ALT Alkaline Phosphatase Lactate Dehydrogenase Troponin T C-Reactive Protein Total Protein Albumin Prealbumin Triglycerides Cholesterol LDL Cholesterol Direct HDL Cholesterol Urine pH Urine WBC (Auto) Urine Creatinine Urine Total Protein Fluid Total Protein Vancomycin Trough Rheumatoid Factor Complement C4 Miscellaneous Test Crossmatch 11/30/16 11/30/16 11/30/16 04:17 04:17 04:32 WBC 12.0 H RBC 2.80 L Hgb 7.8 L Hct 23.6 L MCV MCH MCHC RDW 16.6 H Plt Count Lymph % (Auto) [place] % (Auto) 11.3 H Lymph # [place] # 1.4 H Baso # Seg Neutrophils % Seg Neuts % (Manual) Lymphocytes % (Manual) Monocytes % (Manual) Eosinophils % (Manual) Basophils % (Manual) Nucleated RBC % Seg Neutrophils # 8.2 H Seg Neutrophils # Man Lymphocytes # (Manual) Monocytes # (Manual) Eosinophils # (Manual) Basophils # (Manual) PT INR Fibrinogen dRVVT Confirm Interp Factor V Activity POC ABG pH POC ABG pCO2 POC ABG pO2 ABG pO2 ABG HCO3 ABG Base Excess ABG Hemoglobin Oxyhemoglobin Sodium 169 H* D Potassium 5.1 H Chloride 121.5 H Carbon Dioxide BUN 34 H Creatinine 1.3 H D Glucose 133 H POC Glucose 131 H Lactic Acid Calcium 10.3 H Phosphorus Magnesium Direct Bilirubin AST ALT Alkaline Phosphatase Lactate Dehydrogenase Troponin T C-Reactive Protein Total Protein Albumin Prealbumin Triglycerides Cholesterol LDL Cholesterol Direct HDL Cholesterol Urine pH Urine WBC (Auto) Urine Creatinine Urine Total Protein Fluid Total Protein Vancomycin Trough Rheumatoid Factor Complement C4 Miscellaneous Test Crossmatch 11/30/16 11/30/16 11/30/16 05:45 11:10 17:26 WBC RBC Hgb Hct MCV MCH MCHC RDW Plt Count Lymph % (Auto) [place] % (Auto) Lymph # [place] # Baso # Seg Neutrophils % Seg Neuts % (Manual) Lymphocytes % (Manual) Monocytes % (Manual) Eosinophils % (Manual) Basophils % (Manual) Nucleated RBC % Seg Neutrophils # Seg Neutrophils # Man Lymphocytes # (Manual) Monocytes # (Manual) Eosinophils # (Manual) Basophils # (Manual) PT INR Fibrinogen dRVVT Confirm Interp Factor V Activity POC ABG pH POC ABG pCO2 POC ABG pO2 ABG pO2 ABG HCO3 ABG Base Excess ABG Hemoglobin Oxyhemoglobin Sodium Potassium Chloride Carbon Dioxide BUN 45 H Creatinine 1.6 H Glucose 131 H POC Glucose 146 H 134 H Lactic Acid Calcium Phosphorus Magnesium Direct Bilirubin AST ALT Alkaline Phosphatase Lactate Dehydrogenase Troponin T C-Reactive Protein Total Protein Albumin Prealbumin Triglycerides Cholesterol LDL Cholesterol Direct HDL Cholesterol Urine pH Urine WBC (Auto) Urine Creatinine Urine Total Protein Fluid Total Protein Vancomycin Trough Rheumatoid Factor Complement C4 Miscellaneous Test Crossmatch 11/30/16 12/01/16 12/01/16 23:35 00:06 03:35 WBC RBC Hgb Hct MCV MCH MCHC RDW Plt Count Lymph % (Auto) [place] % (Auto) Lymph # [place] # Baso # Seg Neutrophils % Seg Neuts % (Manual) Lymphocytes % (Manual) Monocytes % (Manual) Eosinophils % (Manual) Basophils % (Manual) Nucleated RBC % Seg Neutrophils # Seg Neutrophils # Man Lymphocytes # (Manual) Monocytes # (Manual) Eosinophils # (Manual) Basophils # (Manual) PT INR Fibrinogen dRVVT Confirm Interp Factor V Activity POC ABG pH POC ABG pCO2 POC ABG pO2 ABG pO2 ABG HCO3 ABG Base Excess ABG Hemoglobin 6.9 L Oxyhemoglobin Sodium Potassium Chloride Carbon Dioxide BUN 58 H Creatinine 1.8 H Glucose 146 H POC Glucose 151 H Lactic Acid Calcium Phosphorus Magnesium Direct Bilirubin AST ALT Alkaline Phosphatase Lactate Dehydrogenase Troponin T C-Reactive Protein Total Protein Albumin Prealbumin Triglycerides Cholesterol LDL Cholesterol Direct HDL Cholesterol Urine pH Urine WBC (Auto) Urine Creatinine Urine Total Protein Fluid Total Protein Vancomycin Trough Rheumatoid Factor Complement C4 Miscellaneous Test Crossmatch 12/01/16 12/01/16 12/01/16 03:35 05:47 11:52 WBC 12.3 H RBC 2.82 L Hgb 7.8 L Hct 23.7 L MCV MCH MCHC RDW 16.7 H Plt Count Lymph % (Auto) [place] % (Auto) 9.8 H Lymph # [place] # 1.2 H Baso # Seg Neutrophils % Seg Neuts % (Manual) Lymphocytes % (Manual) Monocytes % (Manual) Eosinophils % (Manual) Basophils % (Manual) Nucleated RBC % Seg Neutrophils # 8.4 H Seg Neutrophils # Man Lymphocytes # (Manual) Monocytes # (Manual) Eosinophils # (Manual) Basophils # (Manual) PT INR Fibrinogen dRVVT Confirm Interp Factor V Activity POC ABG pH POC ABG pCO2 POC ABG pO2 ABG pO2 ABG HCO3 ABG Base Excess ABG Hemoglobin Oxyhemoglobin Sodium Potassium Chloride Carbon Dioxide BUN Creatinine Glucose POC Glucose 152 H 152 H Lactic Acid Calcium Phosphorus Magnesium Direct Bilirubin AST ALT Alkaline Phosphatase Lactate Dehydrogenase Troponin T C-Reactive Protein Total Protein Albumin Prealbumin Triglycerides Cholesterol LDL Cholesterol Direct HDL Cholesterol Urine pH Urine WBC (Auto) Urine Creatinine Urine Total Protein Fluid Total Protein Vancomycin Trough Rheumatoid Factor Complement C4 Miscellaneous Test Crossmatch 12/01/16 12/01/16 12/02/16 17:40 23:41 05:00 WBC RBC Hgb Hct MCV MCH MCHC RDW Plt Count Lymph % (Auto) [place] % (Auto) Lymph # [place] # Baso # Seg Neutrophils % Seg Neuts % (Manual) Lymphocytes % (Manual) Monocytes % (Manual) Eosinophils % (Manual) Basophils % (Manual) Nucleated RBC % Seg Neutrophils # Seg Neutrophils # Man Lymphocytes # (Manual) Monocytes # (Manual) Eosinophils # (Manual) Basophils # (Manual) PT INR Fibrinogen dRVVT Confirm Interp Factor V Activity POC ABG pH POC ABG pCO2 POC ABG pO2 ABG pO2 ABG HCO3 ABG Base Excess ABG Hemoglobin Oxyhemoglobin Sodium Potassium Chloride Carbon Dioxide BUN 45 H Creatinine Glucose 115 H POC Glucose 140 H 144 H Lactic Acid Calcium Phosphorus Magnesium Direct Bilirubin AST ALT Alkaline Phosphatase Lactate Dehydrogenase Troponin T C-Reactive Protein Total Protein Albumin Prealbumin Triglycerides Cholesterol LDL Cholesterol Direct HDL Cholesterol Urine pH Urine WBC (Auto) Urine Creatinine Urine Total Protein Fluid Total Protein Vancomycin Trough Rheumatoid Factor Complement C4 Miscellaneous Test Crossmatch 12/02/16 12/02/16 12/02/16 05:31 11:20 17:38 WBC RBC Hgb Hct MCV MCH MCHC RDW Plt Count Lymph % (Auto) [place] % (Auto) Lymph # [place] # Baso # Seg Neutrophils % Seg Neuts % (Manual) Lymphocytes % (Manual) Monocytes % (Manual) Eosinophils % (Manual) Basophils % (Manual) Nucleated RBC % Seg Neutrophils # Seg Neutrophils # Man Lymphocytes # (Manual) Monocytes # (Manual) Eosinophils # (Manual) Basophils # (Manual) PT INR Fibrinogen dRVVT Confirm Interp Factor V Activity POC ABG pH POC ABG pCO2 POC ABG pO2 ABG pO2 ABG HCO3 ABG Base Excess ABG Hemoglobin Oxyhemoglobin Sodium Potassium Chloride Carbon Dioxide BUN Creatinine Glucose POC Glucose 136 H 177 H 139 H Lactic Acid Calcium Phosphorus Magnesium Direct Bilirubin AST ALT Alkaline Phosphatase Lactate Dehydrogenase Troponin T C-Reactive Protein Total Protein Albumin Prealbumin Triglycerides Cholesterol LDL Cholesterol Direct HDL Cholesterol Urine pH Urine WBC (Auto) Urine Creatinine Urine Total Protein Fluid Total Protein Vancomycin Trough Rheumatoid Factor Complement C4 Miscellaneous Test Crossmatch 12/02/16 12/03/16 12/03/16 23:43 04:00 04:00 WBC 20.4 H RBC 2.74 L Hgb 7.4 L Hct 23.6 L MCV MCH 27 L MCHC RDW 17.1 H Plt Count Lymph % (Auto) [place] % (Auto) Lymph # [place] # Baso # Seg Neutrophils % Seg Neuts % (Manual) 31.0 L Lymphocytes % (Manual) Monocytes % (Manual) Eosinophils % (Manual) Basophils % (Manual) Nucleated RBC % Seg Neutrophils # Seg Neutrophils # Man Lymphocytes # (Manual) Monocytes # (Manual) Eosinophils # (Manual) Basophils # (Manual) PT INR Fibrinogen dRVVT Confirm Interp Factor V Activity POC ABG pH POC ABG pCO2 POC ABG pO2 ABG pO2 ABG HCO3 ABG Base Excess ABG Hemoglobin Oxyhemoglobin Sodium Potassium Chloride Carbon Dioxide BUN 61 H Creatinine 1.6 H Glucose 119 H POC Glucose 158 H Lactic Acid Calcium Phosphorus Magnesium Direct Bilirubin AST ALT Alkaline Phosphatase Lactate Dehydrogenase Troponin T C-Reactive Protein Total Protein Albumin Prealbumin Triglycerides Cholesterol LDL Cholesterol Direct HDL Cholesterol Urine pH Urine WBC (Auto) Urine Creatinine Urine Total Protein Fluid Total Protein Vancomycin Trough Rheumatoid Factor Complement C4 Miscellaneous Test Crossmatch 12/03/16 12/03/16 12/03/16 05:02 12:11 18:16 WBC RBC Hgb Hct MCV MCH MCHC RDW Plt Count Lymph % (Auto) [place] % (Auto) Lymph # [place] # Baso # Seg Neutrophils % Seg Neuts % (Manual) Lymphocytes % (Manual) Monocytes % (Manual) Eosinophils % (Manual) Basophils % (Manual) Nucleated RBC % Seg Neutrophils # Seg Neutrophils # Man Lymphocytes # (Manual) Monocytes # (Manual) Eosinophils # (Manual) Basophils # (Manual) PT INR Fibrinogen dRVVT Confirm Interp Factor V Activity POC ABG pH POC ABG pCO2 POC ABG pO2 ABG pO2 ABG HCO3 ABG Base Excess ABG Hemoglobin Oxyhemoglobin Sodium Potassium Chloride Carbon Dioxide BUN Creatinine Glucose POC Glucose 146 H 157 H 124 H Lactic Acid Calcium Phosphorus Magnesium Direct Bilirubin AST ALT Alkaline Phosphatase Lactate Dehydrogenase Troponin T C-Reactive Protein Total Protein Albumin Prealbumin Triglycerides Cholesterol LDL Cholesterol Direct HDL Cholesterol Urine pH Urine WBC (Auto) Urine Creatinine Urine Total Protein Fluid Total Protein Vancomycin Trough Rheumatoid Factor Complement C4 Miscellaneous Test Crossmatch 12/03/16 12/04/16 12/04/16 23:41 04:00 04:45 WBC RBC Hgb Hct MCV MCH MCHC RDW Plt Count Lymph % (Auto) [place] % (Auto) Lymph # [place] # Baso # Seg Neutrophils % Seg Neuts % (Manual) Lymphocytes % (Manual) Monocytes % (Manual) Eosinophils % (Manual) Basophils % (Manual) Nucleated RBC % Seg Neutrophils # Seg Neutrophils # Man Lymphocytes # (Manual) Monocytes # (Manual) Eosinophils # (Manual) Basophils # (Manual) PT INR Fibrinogen dRVVT Confirm Interp Factor V Activity POC ABG pH POC ABG pCO2 POC ABG pO2 ABG pO2 ABG HCO3 ABG Base Excess ABG Hemoglobin Oxyhemoglobin Sodium Potassium Chloride Carbon Dioxide BUN 76 H Creatinine 1.6 H Glucose POC Glucose 130 H 136 H Lactic Acid Calcium Phosphorus Magnesium Direct Bilirubin AST ALT Alkaline Phosphatase 155 H Lactate Dehydrogenase Troponin T C-Reactive Protein Total Protein 5.5 L Albumin 1.5 L Prealbumin Triglycerides Cholesterol LDL Cholesterol Direct HDL Cholesterol Urine pH Urine WBC (Auto) Urine Creatinine Urine Total Protein Fluid Total Protein Vancomycin Trough Rheumatoid Factor Complement C4 Miscellaneous Test Crossmatch 12/04/16 12/04/16 12/05/16 12:08 17:23 00:10 WBC RBC Hgb Hct MCV MCH MCHC RDW Plt Count Lymph % (Auto) [place] % (Auto) Lymph # [place] # Baso # Seg Neutrophils % Seg Neuts % (Manual) Lymphocytes % (Manual) Monocytes % (Manual) Eosinophils % (Manual) Basophils % (Manual) Nucleated RBC % Seg Neutrophils # Seg Neutrophils # Man Lymphocytes # (Manual) Monocytes # (Manual) Eosinophils # (Manual) Basophils # (Manual) PT INR Fibrinogen dRVVT Confirm Interp Factor V Activity POC ABG pH POC ABG pCO2 POC ABG pO2 ABG pO2 ABG HCO3 ABG Base Excess ABG Hemoglobin Oxyhemoglobin Sodium Potassium Chloride Carbon Dioxide BUN Creatinine Glucose POC Glucose 114 H 129 H 124 H Lactic Acid Calcium Phosphorus Magnesium Direct Bilirubin AST ALT Alkaline Phosphatase Lactate Dehydrogenase Troponin T C-Reactive Protein Total Protein Albumin Prealbumin Triglycerides Cholesterol LDL Cholesterol Direct HDL Cholesterol Urine pH Urine WBC (Auto) Urine Creatinine Urine Total Protein Fluid Total Protein Vancomycin Trough Rheumatoid Factor Complement C4 Miscellaneous Test Crossmatch 12/05/16 12/05/16 12/05/16 05:00 05:00 05:18 WBC RBC Hgb Hct MCV MCH MCHC RDW Plt Count Lymph % (Auto) [place] % (Auto) Lymph # [place] # Baso # Seg Neutrophils % Seg Neuts % (Manual) Lymphocytes % (Manual) Monocytes % (Manual) Eosinophils % (Manual) Basophils % (Manual) Nucleated RBC % Seg Neutrophils # Seg Neutrophils # Man Lymphocytes # (Manual) Monocytes # (Manual) Eosinophils # (Manual) Basophils # (Manual) PT INR Fibrinogen dRVVT Confirm Interp Factor V Activity POC ABG pH POC ABG pCO2 POC ABG pO2 ABG pO2 ABG HCO3 ABG Base Excess ABG Hemoglobin Oxyhemoglobin Sodium Potassium Chloride Carbon Dioxide 21 L BUN 85 H Creatinine 1.9 H Glucose 131 H POC Glucose 154 H Lactic Acid Calcium Phosphorus Magnesium Direct Bilirubin AST ALT Alkaline Phosphatase Lactate Dehydrogenase Troponin T C-Reactive Protein 19.30 H Total Protein Albumin Prealbumin Triglycerides Cholesterol LDL Cholesterol Direct HDL Cholesterol Urine pH Urine WBC (Auto) Urine Creatinine Urine Total Protein Fluid Total Protein Vancomycin Trough Rheumatoid Factor Complement C4 Miscellaneous Test Crossmatch 12/05/16 12/05/16 12/05/16 11:43 17:46 23:25 WBC RBC Hgb Hct MCV MCH MCHC RDW Plt Count Lymph % (Auto) [place] % (Auto) Lymph # [place] # Baso # Seg Neutrophils % Seg Neuts % (Manual) Lymphocytes % (Manual) Monocytes % (Manual) Eosinophils % (Manual) Basophils % (Manual) Nucleated RBC % Seg Neutrophils # Seg Neutrophils # Man Lymphocytes # (Manual) Monocytes # (Manual) Eosinophils # (Manual) Basophils # (Manual) PT INR Fibrinogen dRVVT Confirm Interp Factor V Activity POC ABG pH POC ABG pCO2 POC ABG pO2 ABG pO2 ABG HCO3 ABG Base Excess ABG Hemoglobin Oxyhemoglobin Sodium Potassium Chloride Carbon Dioxide BUN Creatinine Glucose POC Glucose 117 H 113 H 111 H Lactic Acid Calcium Phosphorus Magnesium Direct Bilirubin AST ALT Alkaline Phosphatase Lactate Dehydrogenase Troponin T C-Reactive Protein Total Protein Albumin Prealbumin Triglycerides Cholesterol LDL Cholesterol Direct HDL Cholesterol Urine pH Urine WBC (Auto) Urine Creatinine Urine Total Protein Fluid Total Protein Vancomycin Trough Rheumatoid Factor Complement C4 Miscellaneous Test Crossmatch 12/05/16 12/06/16 12/06/16 Unknown 04:58 06:00 WBC RBC Hgb Hct MCV MCH MCHC RDW Plt Count Lymph % (Auto) [place] % (Auto) Lymph # [place] # Baso # Seg Neutrophils % Seg Neuts % (Manual) Lymphocytes % (Manual) Monocytes % (Manual) Eosinophils % (Manual) Basophils % (Manual) Nucleated RBC % Seg Neutrophils # Seg Neutrophils # Man Lymphocytes # (Manual) Monocytes # (Manual) Eosinophils # (Manual) Basophils # (Manual) PT INR Fibrinogen dRVVT Confirm Interp Factor V Activity POC ABG pH POC ABG pCO2 POC ABG pO2 ABG pO2 75.2 L ABG HCO3 ABG Base Excess -3.4 L ABG Hemoglobin 7.4 L Oxyhemoglobin 94.5 L Sodium Potassium Chloride Carbon Dioxide 20 L BUN 99 H Creatinine 2.1 H Glucose 126 H POC Glucose 145 H Lactic Acid Calcium Phosphorus 4.80 H Magnesium Direct Bilirubin AST ALT Alkaline Phosphatase Lactate Dehydrogenase Troponin T C-Reactive Protein Total Protein Albumin Prealbumin Triglycerides Cholesterol LDL Cholesterol Direct HDL Cholesterol Urine pH Urine WBC (Auto) Urine Creatinine Urine Total Protein Fluid Total Protein Vancomycin Trough Rheumatoid Factor Complement C4 Miscellaneous Test Crossmatch 12/06/16 12/06/16 12/06/16 06:46 11:54 17:55 WBC RBC Hgb 8.3 L Hct 26.4 L MCV MCH MCHC RDW Plt Count Lymph % (Auto) [place] % (Auto) Lymph # [place] # Baso # Seg Neutrophils % Seg Neuts % (Manual) Lymphocytes % (Manual) Monocytes % (Manual) Eosinophils % (Manual) Basophils % (Manual) Nucleated RBC % Seg Neutrophils # Seg Neutrophils # Man Lymphocytes # (Manual) Monocytes # (Manual) Eosinophils # (Manual) Basophils # (Manual) PT INR Fibrinogen dRVVT Confirm Interp Factor V Activity POC ABG pH POC ABG pCO2 POC ABG pO2 ABG pO2 ABG HCO3 ABG Base Excess ABG Hemoglobin Oxyhemoglobin Sodium Potassium Chloride Carbon Dioxide BUN Creatinine Glucose POC Glucose 126 H 157 H Lactic Acid Calcium Phosphorus Magnesium Direct Bilirubin AST ALT Alkaline Phosphatase Lactate Dehydrogenase Troponin T C-Reactive Protein Total Protein Albumin Prealbumin Triglycerides Cholesterol LDL Cholesterol Direct HDL Cholesterol Urine pH Urine WBC (Auto) Urine Creatinine Urine Total Protein Fluid Total Protein Vancomycin Trough Rheumatoid Factor Complement C4 Miscellaneous Test Crossmatch 12/06/16 12/07/16 12/07/16 23:59 05:34 06:30 WBC RBC Hgb Hct MCV MCH MCHC RDW Plt Count Lymph % (Auto) [place] % (Auto) Lymph # [place] # Baso # Seg Neutrophils % Seg Neuts % (Manual) Lymphocytes % (Manual) Monocytes % (Manual) Eosinophils % (Manual) Basophils % (Manual) Nucleated RBC % Seg Neutrophils # Seg Neutrophils # Man Lymphocytes # (Manual) Monocytes # (Manual) Eosinophils # (Manual) Basophils # (Manual) PT INR Fibrinogen dRVVT Confirm Interp Factor V Activity POC ABG pH POC ABG pCO2 POC ABG pO2 ABG pO2 ABG HCO3 ABG Base Excess ABG Hemoglobin Oxyhemoglobin Sodium Potassium Chloride Carbon Dioxide BUN 67 H Creatinine 1.4 H Glucose 126 H POC Glucose 129 H 129 H Lactic Acid Calcium Phosphorus Magnesium Direct Bilirubin AST ALT Alkaline Phosphatase Lactate Dehydrogenase Troponin T C-Reactive Protein Total Protein Albumin Prealbumin Triglycerides Cholesterol LDL Cholesterol Direct HDL Cholesterol Urine pH Urine WBC (Auto) Urine Creatinine Urine Total Protein Fluid Total Protein Vancomycin Trough Rheumatoid Factor Complement C4 Miscellaneous Test Crossmatch 12/07/16 12/07/16 12/07/16 06:30 08:00 09:45 WBC 18.8 H RBC 2.52 L Hgb 6.9 L 6.8 L Hct 21.2 L 21.1 L MCV MCH 27 L MCHC RDW 18.0 H Plt Count Lymph % (Auto) [place] % (Auto) 9.9 H Lymph # [place] # 1.9 H Baso # Seg Neutrophils % 71.8 H Seg Neuts % (Manual) Lymphocytes % (Manual) Monocytes % (Manual) Eosinophils % (Manual) Basophils % (Manual) Nucleated RBC % Seg Neutrophils # 13.5 H Seg Neutrophils # Man Lymphocytes # (Manual) Monocytes # (Manual) Eosinophils # (Manual) Basophils # (Manual) PT INR Fibrinogen dRVVT Confirm Interp Factor V Activity POC ABG pH POC ABG pCO2 POC ABG pO2 ABG pO2 ABG HCO3 ABG Base Excess ABG Hemoglobin Oxyhemoglobin Sodium Potassium Chloride Carbon Dioxide BUN Creatinine Glucose POC Glucose Lactic Acid Calcium Phosphorus Magnesium Direct Bilirubin AST ALT Alkaline Phosphatase Lactate Dehydrogenase Troponin T C-Reactive Protein Total Protein Albumin Prealbumin Triglycerides Cholesterol LDL Cholesterol Direct HDL Cholesterol Urine pH Urine WBC (Auto) Urine Creatinine Urine Total Protein Fluid Total Protein Vancomycin Trough Rheumatoid Factor Complement C4 Miscellaneous Test Crossmatch See Detail 12/07/16 12/07/16 12/07/16 11:44 18:19 23:59 WBC RBC Hgb Hct MCV MCH MCHC RDW Plt Count Lymph % (Auto) [place] % (Auto) Lymph # [place] # Baso # Seg Neutrophils % Seg Neuts % (Manual) Lymphocytes % (Manual) Monocytes % (Manual) Eosinophils % (Manual) Basophils % (Manual) Nucleated RBC % Seg Neutrophils # Seg Neutrophils # Man Lymphocytes # (Manual) Monocytes # (Manual) Eosinophils # (Manual) Basophils # (Manual) PT INR Fibrinogen dRVVT Confirm Interp Factor V Activity POC ABG pH POC ABG pCO2 POC ABG pO2 ABG pO2 ABG HCO3 ABG Base Excess ABG Hemoglobin Oxyhemoglobin Sodium Potassium Chloride Carbon Dioxide BUN Creatinine Glucose POC Glucose 137 H 138 H 133 H Lactic Acid Calcium Phosphorus Magnesium Direct Bilirubin AST ALT Alkaline Phosphatase Lactate Dehydrogenase Troponin T C-Reactive Protein Total Protein Albumin Prealbumin Triglycerides Cholesterol LDL Cholesterol Direct HDL Cholesterol Urine pH Urine WBC (Auto) Urine Creatinine Urine Total Protein Fluid Total Protein Vancomycin Trough Rheumatoid Factor Complement C4 Miscellaneous Test Crossmatch 12/08/16 12/08/16 12/08/16 05:25 05:30 05:30 WBC 23.8 H RBC 2.88 L Hgb 8.1 L Hct 24.3 L MCV MCH MCHC RDW 16.7 H Plt Count Lymph % (Auto) [place] % (Auto) Lymph # [place] # Baso # Seg Neutrophils % Seg Neuts % (Manual) 76.0 H Lymphocytes % (Manual) 9.0 L Monocytes % (Manual) 9.0 H Eosinophils % (Manual) Basophils % (Manual) Nucleated RBC % Seg Neutrophils # Seg Neutrophils # Man 18.1 H Lymphocytes # (Manual) Monocytes # (Manual) 2.1 H Eosinophils # (Manual) Basophils # (Manual) PT INR Fibrinogen dRVVT Confirm Interp Factor V Activity POC ABG pH POC ABG pCO2 POC ABG pO2 ABG pO2 ABG HCO3 ABG Base Excess ABG Hemoglobin Oxyhemoglobin Sodium Potassium Chloride Carbon Dioxide 21 L BUN 76 H Creatinine 1.6 H Glucose 133 H POC Glucose 177 H Lactic Acid Calcium Phosphorus Magnesium Direct Bilirubin AST ALT Alkaline Phosphatase Lactate Dehydrogenase Troponin T C-Reactive Protein Total Protein Albumin Prealbumin Triglycerides Cholesterol LDL Cholesterol Direct HDL Cholesterol Urine pH Urine WBC (Auto) Urine Creatinine Urine Total Protein Fluid Total Protein Vancomycin Trough Rheumatoid Factor Complement C4 Miscellaneous Test Crossmatch 12/08/16 12/08/16 12/09/16 11:45 18:00 00:00 WBC RBC Hgb Hct MCV MCH MCHC RDW Plt Count Lymph % (Auto) [place] % (Auto) Lymph # [place] # Baso # Seg Neutrophils % Seg Neuts % (Manual) Lymphocytes % (Manual) Monocytes % (Manual) Eosinophils % (Manual) Basophils % (Manual) Nucleated RBC % Seg Neutrophils # Seg Neutrophils # Man Lymphocytes # (Manual) Monocytes # (Manual) Eosinophils # (Manual) Basophils # (Manual) PT INR Fibrinogen dRVVT Confirm Interp Factor V Activity POC ABG pH POC ABG pCO2 POC ABG pO2 ABG pO2 ABG HCO3 ABG Base Excess ABG Hemoglobin Oxyhemoglobin Sodium Potassium Chloride Carbon Dioxide BUN Creatinine Glucose POC Glucose 163 H 123 H 137 H Lactic Acid Calcium Phosphorus Magnesium Direct Bilirubin AST ALT Alkaline Phosphatase Lactate Dehydrogenase Troponin T C-Reactive Protein Total Protein Albumin Prealbumin Triglycerides Cholesterol LDL Cholesterol Direct HDL Cholesterol Urine pH Urine WBC (Auto) Urine Creatinine Urine Total Protein Fluid Total Protein Vancomycin Trough Rheumatoid Factor Complement C4 Miscellaneous Test Crossmatch 12/09/16 12/09/16 12/09/16 05:34 06:00 06:00 WBC 15.5 H RBC 2.87 L Hgb 8.0 L Hct 24.2 L MCV MCH MCHC RDW 17.2 H Plt Count Lymph % (Auto) [place] % (Auto) 11.6 H Lymph # [place] # 1.8 H Baso # Seg Neutrophils % 70.8 H Seg Neuts % (Manual) Lymphocytes % (Manual) Monocytes % (Manual) Eosinophils % (Manual) Basophils % (Manual) Nucleated RBC % Seg Neutrophils # 11.0 H Seg Neutrophils # Man Lymphocytes # (Manual) Monocytes # (Manual) Eosinophils # (Manual) Basophils # (Manual) PT INR Fibrinogen dRVVT Confirm Interp Factor V Activity POC ABG pH POC ABG pCO2 POC ABG pO2 ABG pO2 ABG HCO3 ABG Base Excess ABG Hemoglobin Oxyhemoglobin Sodium Potassium Chloride Carbon Dioxide BUN 51 H Creatinine Glucose 117 H POC Glucose 136 H Lactic Acid Calcium Phosphorus Magnesium Direct Bilirubin AST ALT Alkaline Phosphatase Lactate Dehydrogenase Troponin T C-Reactive Protein Total Protein Albumin Prealbumin Triglycerides Cholesterol LDL Cholesterol Direct HDL Cholesterol Urine pH Urine WBC (Auto) Urine Creatinine Urine Total Protein Fluid Total Protein Vancomycin Trough Rheumatoid Factor Complement C4 Miscellaneous Test Crossmatch 12/09/16 12/09/16 12/09/16 12:29 17:52 23:10 WBC RBC Hgb Hct MCV MCH MCHC RDW Plt Count Lymph % (Auto) [place] % (Auto) Lymph # [place] # Baso # Seg Neutrophils % Seg Neuts % (Manual) Lymphocytes % (Manual) Monocytes % (Manual) Eosinophils % (Manual) Basophils % (Manual) Nucleated RBC % Seg Neutrophils # Seg Neutrophils # Man Lymphocytes # (Manual) Monocytes # (Manual) Eosinophils # (Manual) Basophils # (Manual) PT INR Fibrinogen dRVVT Confirm Interp Factor V Activity POC ABG pH POC ABG pCO2 POC ABG pO2 ABG pO2 ABG HCO3 ABG Base Excess ABG Hemoglobin Oxyhemoglobin Sodium Potassium Chloride Carbon Dioxide BUN Creatinine Glucose POC Glucose 139 H 140 H 129 H Lactic Acid Calcium Phosphorus Magnesium Direct Bilirubin AST ALT Alkaline Phosphatase Lactate Dehydrogenase Troponin T C-Reactive Protein Total Protein Albumin Prealbumin Triglycerides Cholesterol LDL Cholesterol Direct HDL Cholesterol Urine pH Urine WBC (Auto) Urine Creatinine Urine Total Protein Fluid Total Protein Vancomycin Trough Rheumatoid Factor Complement C4 Miscellaneous Test Crossmatch 12/10/16 12/10/16 12/10/16 05:00 05:00 06:54 WBC 15.7 H RBC 2.87 L Hgb 8.2 L Hct 24.4 L MCV MCH MCHC RDW 17.2 H Plt Count Lymph % (Auto) [place] % (Auto) 8.3 H Lymph # [place] # 1.3 H Baso # Seg Neutrophils % 72.8 H Seg Neuts % (Manual) Lymphocytes % (Manual) Monocytes % (Manual) Eosinophils % (Manual) Basophils % (Manual) Nucleated RBC % Seg Neutrophils # 11.4 H Seg Neutrophils # Man Lymphocytes # (Manual) Monocytes # (Manual) Eosinophils # (Manual) Basophils # (Manual) PT INR Fibrinogen dRVVT Confirm Interp Factor V Activity POC ABG pH POC ABG pCO2 POC ABG pO2 ABG pO2 ABG HCO3 ABG Base Excess ABG Hemoglobin Oxyhemoglobin Sodium Potassium Chloride Carbon Dioxide BUN 64 H Creatinine 1.4 H Glucose 134 H POC Glucose 154 H Lactic Acid Calcium Phosphorus Magnesium Direct Bilirubin AST ALT Alkaline Phosphatase Lactate Dehydrogenase Troponin T C-Reactive Protein Total Protein Albumin Prealbumin Triglycerides Cholesterol LDL Cholesterol Direct HDL Cholesterol Urine pH Urine WBC (Auto) Urine Creatinine Urine Total Protein Fluid Total Protein Vancomycin Trough Rheumatoid Factor Complement C4 Miscellaneous Test Crossmatch 12/10/16 12/10/16 12/10/16 11:58 17:29 23:52 WBC RBC Hgb Hct MCV MCH MCHC RDW Plt Count Lymph % (Auto) [place] % (Auto) Lymph # [place] # Baso # Seg Neutrophils % Seg Neuts % (Manual) Lymphocytes % (Manual) Monocytes % (Manual) Eosinophils % (Manual) Basophils % (Manual) Nucleated RBC % Seg Neutrophils # Seg Neutrophils # Man Lymphocytes # (Manual) Monocytes # (Manual) Eosinophils # (Manual) Basophils # (Manual) PT INR Fibrinogen dRVVT Confirm Interp Factor V Activity POC ABG pH POC ABG pCO2 POC ABG pO2 ABG pO2 ABG HCO3 ABG Base Excess ABG Hemoglobin Oxyhemoglobin Sodium Potassium Chloride Carbon Dioxide BUN Creatinine Glucose POC Glucose 144 H 163 H 125 H Lactic Acid Calcium Phosphorus Magnesium Direct Bilirubin AST ALT Alkaline Phosphatase Lactate Dehydrogenase Troponin T C-Reactive Protein Total Protein Albumin Prealbumin Triglycerides Cholesterol LDL Cholesterol Direct HDL Cholesterol Urine pH Urine WBC (Auto) Urine Creatinine Urine Total Protein Fluid Total Protein Vancomycin Trough Rheumatoid Factor Complement C4 Miscellaneous Test Crossmatch 12/11/16 12/11/16 12/11/16 05:38 06:30 06:30 WBC 14.4 H RBC 2.76 L Hgb 7.7 L Hct 23.4 L MCV MCH MCHC RDW 17.2 H Plt Count Lymph % (Auto) [place] % (Auto) 8.8 H Lymph # [place] # 1.3 H Baso # Seg Neutrophils % 72.5 H Seg Neuts % (Manual) Lymphocytes % (Manual) Monocytes % (Manual) Eosinophils % (Manual) Basophils % (Manual) Nucleated RBC % Seg Neutrophils # 10.5 H Seg Neutrophils # Man Lymphocytes # (Manual) Monocytes # (Manual) Eosinophils # (Manual) Basophils # (Manual) PT INR Fibrinogen dRVVT Confirm Interp Factor V Activity POC ABG pH POC ABG pCO2 POC ABG pO2 ABG pO2 ABG HCO3 ABG Base Excess ABG Hemoglobin Oxyhemoglobin Sodium Potassium Chloride Carbon Dioxide BUN 43 H Creatinine Glucose 124 H POC Glucose 141 H Lactic Acid Calcium 8.3 L Phosphorus Magnesium 1.60 L Direct Bilirubin AST ALT Alkaline Phosphatase Lactate Dehydrogenase Troponin T C-Reactive Protein Total Protein Albumin Prealbumin Triglycerides Cholesterol LDL Cholesterol Direct HDL Cholesterol Urine pH Urine WBC (Auto) Urine Creatinine Urine Total Protein Fluid Total Protein Vancomycin Trough Rheumatoid Factor Complement C4 Miscellaneous Test Crossmatch 12/11/16 12/11/16 12/11/16 11:15 17:59 23:48 WBC RBC Hgb Hct MCV MCH MCHC RDW Plt Count Lymph % (Auto) [place] % (Auto) Lymph # [place] # Baso # Seg Neutrophils % Seg Neuts % (Manual) Lymphocytes % (Manual) Monocytes % (Manual) Eosinophils % (Manual) Basophils % (Manual) Nucleated RBC % Seg Neutrophils # Seg Neutrophils # Man Lymphocytes # (Manual) Monocytes # (Manual) Eosinophils # (Manual) Basophils # (Manual) PT INR Fibrinogen dRVVT Confirm Interp Factor V Activity POC ABG pH POC ABG pCO2 POC ABG pO2 ABG pO2 ABG HCO3 ABG Base Excess ABG Hemoglobin Oxyhemoglobin Sodium Potassium Chloride Carbon Dioxide BUN Creatinine Glucose POC Glucose 188 H 106 H 119 H Lactic Acid Calcium Phosphorus Magnesium Direct Bilirubin AST ALT Alkaline Phosphatase Lactate Dehydrogenase Troponin T C-Reactive Protein Total Protein Albumin Prealbumin Triglycerides Cholesterol LDL Cholesterol Direct HDL Cholesterol Urine pH Urine WBC (Auto) Urine Creatinine Urine Total Protein Fluid Total Protein Vancomycin Trough Rheumatoid Factor Complement C4 Miscellaneous Test Crossmatch 12/12/16 12/12/16 12/12/16 05:00 06:01 12:20 WBC 16.7 H RBC 2.87 L Hgb 8.0 L Hct 24.2 L MCV MCH MCHC RDW 17.6 H Plt Count Lymph % (Auto) [place] % (Auto) Lymph # [place] # 1.2 H Baso # Seg Neutrophils % 75.3 H Seg Neuts % (Manual) Lymphocytes % (Manual) Monocytes % (Manual) Eosinophils % (Manual) Basophils % (Manual) Nucleated RBC % Seg Neutrophils # 12.6 H Seg Neutrophils # Man Lymphocytes # (Manual) Monocytes # (Manual) Eosinophils # (Manual) Basophils # (Manual) PT INR Fibrinogen dRVVT Confirm Interp Factor V Activity POC ABG pH POC ABG pCO2 POC ABG pO2 ABG pO2 ABG HCO3 ABG Base Excess ABG Hemoglobin Oxyhemoglobin Sodium Potassium Chloride Carbon Dioxide BUN Creatinine Glucose POC Glucose 134 H 149 H Lactic Acid Calcium Phosphorus Magnesium Direct Bilirubin AST ALT Alkaline Phosphatase Lactate Dehydrogenase Troponin T C-Reactive Protein Total Protein Albumin Prealbumin Triglycerides Cholesterol LDL Cholesterol Direct HDL Cholesterol Urine pH Urine WBC (Auto) Urine Creatinine Urine Total Protein Fluid Total Protein Vancomycin Trough Rheumatoid Factor Complement C4 Miscellaneous Test Crossmatch 12/12/16 12/12/16 12/12/16 17:38 23:01 Unknown WBC RBC Hgb Hct MCV MCH MCHC RDW Plt Count Lymph % (Auto) [place] % (Auto) Lymph # [place] # Baso # Seg Neutrophils % Seg Neuts % (Manual) Lymphocytes % (Manual) Monocytes % (Manual) Eosinophils % (Manual) Basophils % (Manual) Nucleated RBC % Seg Neutrophils # Seg Neutrophils # Man Lymphocytes # (Manual) Monocytes # (Manual) Eosinophils # (Manual) Basophils # (Manual) PT INR Fibrinogen dRVVT Confirm Interp Factor V Activity POC ABG pH POC ABG pCO2 POC ABG pO2 ABG pO2 ABG HCO3 ABG Base Excess ABG Hemoglobin Oxyhemoglobin Sodium Potassium Chloride Carbon Dioxide BUN 60 H Creatinine 1.3 H Glucose 126 H POC Glucose 127 H 144 H Lactic Acid Calcium Phosphorus Magnesium Direct Bilirubin AST ALT Alkaline Phosphatase Lactate Dehydrogenase Troponin T C-Reactive Protein Total Protein Albumin Prealbumin Triglycerides Cholesterol LDL Cholesterol Direct HDL Cholesterol Urine pH Urine WBC (Auto) Urine Creatinine Urine Total Protein Fluid Total Protein Vancomycin Trough Rheumatoid Factor Complement C4 Miscellaneous Test Crossmatch 12/13/16 12/13/16 12/13/16 04:00 04:00 05:19 WBC 18.7 H RBC 2.89 L Hgb 8.3 L Hct 24.6 L MCV MCH MCHC RDW 17.5 H Plt Count Lymph % (Auto) [place] % (Auto) Lymph # [place] # 1.3 H Baso # Seg Neutrophils % 71.5 H Seg Neuts % (Manual) Lymphocytes % (Manual) Monocytes % (Manual) Eosinophils % (Manual) Basophils % (Manual) Nucleated RBC % Seg Neutrophils # 13.4 H Seg Neutrophils # Man Lymphocytes # (Manual) Monocytes # (Manual) Eosinophils # (Manual) Basophils # (Manual) PT INR Fibrinogen dRVVT Confirm Interp Factor V Activity POC ABG pH POC ABG pCO2 POC ABG pO2 ABG pO2 ABG HCO3 ABG Base Excess ABG Hemoglobin Oxyhemoglobin Sodium Potassium Chloride Carbon Dioxide BUN 73 H Creatinine 1.5 H Glucose 141 H POC Glucose 171 H Lactic Acid Calcium Phosphorus Magnesium Direct Bilirubin AST ALT Alkaline Phosphatase Lactate Dehydrogenase Troponin T C-Reactive Protein Total Protein Albumin Prealbumin Triglycerides Cholesterol LDL Cholesterol Direct HDL Cholesterol Urine pH Urine WBC (Auto) Urine Creatinine Urine Total Protein Fluid Total Protein Vancomycin Trough Rheumatoid Factor Complement C4 Miscellaneous Test Crossmatch 12/13/16 12/13/16 12/14/16 12:28 16:48 00:01 WBC RBC Hgb Hct MCV MCH MCHC RDW Plt Count Lymph % (Auto) [place] % (Auto) Lymph # [place] # Baso # Seg Neutrophils % Seg Neuts % (Manual) Lymphocytes % (Manual) Monocytes % (Manual) Eosinophils % (Manual) Basophils % (Manual) Nucleated RBC % Seg Neutrophils # Seg Neutrophils # Man Lymphocytes # (Manual) Monocytes # (Manual) Eosinophils # (Manual) Basophils # (Manual) PT INR Fibrinogen dRVVT Confirm Interp Factor V Activity POC ABG pH POC ABG pCO2 POC ABG pO2 ABG pO2 ABG HCO3 ABG Base Excess ABG Hemoglobin Oxyhemoglobin Sodium Potassium Chloride Carbon Dioxide BUN Creatinine Glucose POC Glucose 206 H 173 H 139 H Lactic Acid Calcium Phosphorus Magnesium Direct Bilirubin AST ALT Alkaline Phosphatase Lactate Dehydrogenase Troponin T C-Reactive Protein Total Protein Albumin Prealbumin Triglycerides Cholesterol LDL Cholesterol Direct HDL Cholesterol Urine pH Urine WBC (Auto) Urine Creatinine Urine Total Protein Fluid Total Protein Vancomycin Trough Rheumatoid Factor Complement C4 Miscellaneous Test Crossmatch 12/14/16 12/14/16 12/14/16 05:16 06:10 11:17 WBC RBC Hgb Hct MCV MCH MCHC RDW Plt Count Lymph % (Auto) [place] % (Auto) Lymph # [place] # Baso # Seg Neutrophils % Seg Neuts % (Manual) Lymphocytes % (Manual) Monocytes % (Manual) Eosinophils % (Manual) Basophils % (Manual) Nucleated RBC % Seg Neutrophils # Seg Neutrophils # Man Lymphocytes # (Manual) Monocytes # (Manual) Eosinophils # (Manual) Basophils # (Manual) PT INR Fibrinogen dRVVT Confirm Interp Factor V Activity POC ABG pH POC ABG pCO2 POC ABG pO2 ABG pO2 ABG HCO3 ABG Base Excess ABG Hemoglobin Oxyhemoglobin Sodium Potassium Chloride Carbon Dioxide BUN 57 H Creatinine 1.4 H Glucose 135 H POC Glucose 158 H 137 H Lactic Acid Calcium Phosphorus Magnesium Direct Bilirubin AST ALT Alkaline Phosphatase Lactate Dehydrogenase Troponin T C-Reactive Protein Total Protein Albumin Prealbumin Triglycerides Cholesterol LDL Cholesterol Direct HDL Cholesterol Urine pH Urine WBC (Auto) Urine Creatinine Urine Total Protein Fluid Total Protein Vancomycin Trough Rheumatoid Factor Complement C4 Miscellaneous Test Crossmatch 12/14/16 12/14/16 12/15/16 17:52 23:27 04:00 WBC RBC Hgb Hct MCV MCH MCHC RDW Plt Count Lymph % (Auto) [place] % (Auto) Lymph # [place] # Baso # Seg Neutrophils % Seg Neuts % (Manual) Lymphocytes % (Manual) Monocytes % (Manual) Eosinophils % (Manual) Basophils % (Manual) Nucleated RBC % Seg Neutrophils # Seg Neutrophils # Man Lymphocytes # (Manual) Monocytes # (Manual) Eosinophils # (Manual) Basophils # (Manual) PT INR Fibrinogen dRVVT Confirm Interp Factor V Activity POC ABG pH POC ABG pCO2 POC ABG pO2 ABG pO2 ABG HCO3 ABG Base Excess ABG Hemoglobin Oxyhemoglobin Sodium Potassium Chloride 97.9 L Carbon Dioxide BUN 75 H Creatinine 1.6 H Glucose 122 H POC Glucose 149 H 163 H Lactic Acid Calcium Phosphorus 5.20 H Magnesium Direct Bilirubin AST ALT Alkaline Phosphatase Lactate Dehydrogenase Troponin T C-Reactive Protein Total Protein Albumin Prealbumin Triglycerides Cholesterol LDL Cholesterol Direct HDL Cholesterol Urine pH Urine WBC (Auto) Urine Creatinine Urine Total Protein Fluid Total Protein Vancomycin Trough Rheumatoid Factor Complement C4 Miscellaneous Test Crossmatch 12/15/16 12/15/16 12/15/16 05:50 11:24 17:01 WBC RBC Hgb Hct MCV MCH MCHC RDW Plt Count Lymph % (Auto) [place] % (Auto) Lymph # [place] # Baso # Seg Neutrophils % Seg Neuts % (Manual) Lymphocytes % (Manual) Monocytes % (Manual) Eosinophils % (Manual) Basophils % (Manual) Nucleated RBC % Seg Neutrophils # Seg Neutrophils # Man Lymphocytes # (Manual) Monocytes # (Manual) Eosinophils # (Manual) Basophils # (Manual) PT INR Fibrinogen dRVVT Confirm Interp Factor V Activity POC ABG pH POC ABG pCO2 POC ABG pO2 ABG pO2 ABG HCO3 ABG Base Excess ABG Hemoglobin Oxyhemoglobin Sodium Potassium Chloride Carbon Dioxide BUN Creatinine Glucose POC Glucose 150 H 146 H 167 H Lactic Acid Calcium Phosphorus Magnesium Direct Bilirubin AST ALT Alkaline Phosphatase Lactate Dehydrogenase Troponin T C-Reactive Protein Total Protein Albumin Prealbumin Triglycerides Cholesterol LDL Cholesterol Direct HDL Cholesterol Urine pH Urine WBC (Auto) Urine Creatinine Urine Total Protein Fluid Total Protein Vancomycin Trough Rheumatoid Factor Complement C4 Miscellaneous Test Crossmatch 12/15/16 12/16/16 12/16/16 23:34 05:25 11:24 WBC RBC Hgb Hct MCV MCH MCHC RDW Plt Count Lymph % (Auto) [place] % (Auto) Lymph # [place] # Baso # Seg Neutrophils % Seg Neuts % (Manual) Lymphocytes % (Manual) Monocytes % (Manual) Eosinophils % (Manual) Basophils % (Manual) Nucleated RBC % Seg Neutrophils # Seg Neutrophils # Man Lymphocytes # (Manual) Monocytes # (Manual) Eosinophils # (Manual) Basophils # (Manual) PT INR Fibrinogen dRVVT Confirm Interp Factor V Activity POC ABG pH POC ABG pCO2 POC ABG pO2 ABG pO2 ABG HCO3 ABG Base Excess ABG Hemoglobin Oxyhemoglobin Sodium Potassium Chloride Carbon Dioxide BUN Creatinine Glucose POC Glucose 127 H 139 H 165 H Lactic Acid Calcium Phosphorus Magnesium Direct Bilirubin AST ALT Alkaline Phosphatase Lactate Dehydrogenase Troponin T C-Reactive Protein Total Protein Albumin Prealbumin Triglycerides Cholesterol LDL Cholesterol Direct HDL Cholesterol Urine pH Urine WBC (Auto) Urine Creatinine Urine Total Protein Fluid Total Protein Vancomycin Trough Rheumatoid Factor Complement C4 Miscellaneous Test Crossmatch 12/16/16 12/16/16 12/16/16 15:30 16:25 17:31 WBC 17.8 H RBC 2.38 L Hgb 6.4 L Hct 20.3 L MCV MCH 27 L MCHC RDW 17.4 H Plt Count Lymph % (Auto) [place] % (Auto) Lymph # [place] # Baso # Seg Neutrophils % Seg Neuts % (Manual) Lymphocytes % (Manual) Monocytes % (Manual) 10.0 H Eosinophils % (Manual) Basophils % (Manual) Nucleated RBC % Seg Neutrophils # Seg Neutrophils # Man 8.5 H Lymphocytes # (Manual) Monocytes # (Manual) 1.8 H Eosinophils # (Manual) Basophils # (Manual) PT INR Fibrinogen dRVVT Confirm Interp Factor V Activity POC ABG pH POC ABG pCO2 POC ABG pO2 ABG pO2 ABG HCO3 ABG Base Excess ABG Hemoglobin Oxyhemoglobin Sodium Potassium Chloride Carbon Dioxide BUN Creatinine Glucose POC Glucose 176 H Lactic Acid Calcium Phosphorus Magnesium Direct Bilirubin AST ALT Alkaline Phosphatase Lactate Dehydrogenase Troponin T C-Reactive Protein Total Protein Albumin Prealbumin Triglycerides Cholesterol LDL Cholesterol Direct HDL Cholesterol Urine pH Urine WBC (Auto) Urine Creatinine Urine Total Protein Fluid Total Protein Vancomycin Trough Rheumatoid Factor Complement C4 Miscellaneous Test Crossmatch See Detail 12/17/16 12/17/16 12/17/16 00:14 04:00 05:00 WBC 20.0 H RBC 2.99 L Hgb 8.5 L Hct 25.7 L MCV MCH MCHC RDW 17.2 H Plt Count Lymph % (Auto) [place] % (Auto) Lymph # [place] # Baso # Seg Neutrophils % Seg Neuts % (Manual) Lymphocytes % (Manual) Monocytes % (Manual) Eosinophils % (Manual) Basophils % (Manual) Nucleated RBC % Seg Neutrophils # Seg Neutrophils # Man Lymphocytes # (Manual) Monocytes # (Manual) Eosinophils # (Manual) Basophils # (Manual) PT INR Fibrinogen dRVVT Confirm Interp Factor V Activity POC ABG pH POC ABG pCO2 POC ABG pO2 ABG pO2 ABG HCO3 ABG Base Excess ABG Hemoglobin Oxyhemoglobin Sodium Potassium Chloride 97.7 L Carbon Dioxide BUN 73 H Creatinine 1.7 H Glucose 136 H POC Glucose 148 H Lactic Acid Calcium Phosphorus 2.20 L Magnesium 2.70 H Direct Bilirubin AST ALT Alkaline Phosphatase Lactate Dehydrogenase Troponin T C-Reactive Protein Total Protein Albumin Prealbumin Triglycerides Cholesterol LDL Cholesterol Direct HDL Cholesterol Urine pH Urine WBC (Auto) Urine Creatinine Urine Total Protein Fluid Total Protein Vancomycin Trough Rheumatoid Factor Complement C4 Miscellaneous Test Crossmatch 12/17/16 12/17/16 12/17/16 05:39 12:50 16:32 WBC RBC Hgb Hct MCV MCH MCHC RDW Plt Count Lymph % (Auto) [place] % (Auto) Lymph # [place] # Baso # Seg Neutrophils % Seg Neuts % (Manual) Lymphocytes % (Manual) Monocytes % (Manual) Eosinophils % (Manual) Basophils % (Manual) Nucleated RBC % Seg Neutrophils # Seg Neutrophils # Man Lymphocytes # (Manual) Monocytes # (Manual) Eosinophils # (Manual) Basophils # (Manual) PT INR Fibrinogen dRVVT Confirm Interp Factor V Activity POC ABG pH POC ABG pCO2 POC ABG pO2 ABG pO2 ABG HCO3 ABG Base Excess ABG Hemoglobin Oxyhemoglobin Sodium Potassium Chloride Carbon Dioxide BUN Creatinine Glucose POC Glucose 162 H 146 H 169 H Lactic Acid Calcium Phosphorus Magnesium Direct Bilirubin AST ALT Alkaline Phosphatase Lactate Dehydrogenase Troponin T C-Reactive Protein Total Protein Albumin Prealbumin Triglycerides Cholesterol LDL Cholesterol Direct HDL Cholesterol Urine pH Urine WBC (Auto) Urine Creatinine Urine Total Protein Fluid Total Protein Vancomycin Trough Rheumatoid Factor Complement C4 Miscellaneous Test Crossmatch 12/17/16 12/18/16 12/18/16 23:57 05:00 05:32 WBC RBC Hgb Hct MCV MCH MCHC RDW Plt Count Lymph % (Auto) [place] % (Auto) Lymph # [place] # Baso # Seg Neutrophils % Seg Neuts % (Manual) Lymphocytes % (Manual) Monocytes % (Manual) Eosinophils % (Manual) Basophils % (Manual) Nucleated RBC % Seg Neutrophils # Seg Neutrophils # Man Lymphocytes # (Manual) Monocytes # (Manual) Eosinophils # (Manual) Basophils # (Manual) PT INR Fibrinogen dRVVT Confirm Interp Factor V Activity POC ABG pH POC ABG pCO2 POC ABG pO2 ABG pO2 ABG HCO3 ABG Base Excess ABG Hemoglobin Oxyhemoglobin Sodium Potassium Chloride 97.0 L Carbon Dioxide BUN 63 H Creatinine 1.4 H Glucose 174 H POC Glucose 145 H 201 H Lactic Acid Calcium Phosphorus 1.70 L D Magnesium Direct Bilirubin AST ALT Alkaline Phosphatase 257 H Lactate Dehydrogenase Troponin T C-Reactive Protein Total Protein 5.9 L Albumin 1.8 L Prealbumin Triglycerides Cholesterol LDL Cholesterol Direct HDL Cholesterol Urine pH Urine WBC (Auto) Urine Creatinine Urine Total Protein Fluid Total Protein Vancomycin Trough Rheumatoid Factor Complement C4 Miscellaneous Test Crossmatch 12/18/16 12/18/16 12/18/16 11:43 16:52 23:52 WBC RBC Hgb Hct MCV MCH MCHC RDW Plt Count Lymph % (Auto) [place] % (Auto) Lymph # [place] # Baso # Seg Neutrophils % Seg Neuts % (Manual) Lymphocytes % (Manual) Monocytes % (Manual) Eosinophils % (Manual) Basophils % (Manual) Nucleated RBC % Seg Neutrophils # Seg Neutrophils # Man Lymphocytes # (Manual) Monocytes # (Manual) Eosinophils # (Manual) Basophils # (Manual) PT INR Fibrinogen dRVVT Confirm Interp Factor V Activity POC ABG pH POC ABG pCO2 POC ABG pO2 ABG pO2 ABG HCO3 ABG Base Excess ABG Hemoglobin Oxyhemoglobin Sodium Potassium Chloride Carbon Dioxide BUN Creatinine Glucose POC Glucose 177 H 110 H 162 H Lactic Acid Calcium Phosphorus Magnesium Direct Bilirubin AST ALT Alkaline Phosphatase Lactate Dehydrogenase Troponin T C-Reactive Protein Total Protein Albumin Prealbumin Triglycerides Cholesterol LDL Cholesterol Direct HDL Cholesterol Urine pH Urine WBC (Auto) Urine Creatinine Urine Total Protein Fluid Total Protein Vancomycin Trough Rheumatoid Factor Complement C4 Miscellaneous Test Crossmatch 12/19/16 12/19/16 12/19/16 05:02 05:24 09:30 WBC 20.1 H RBC 2.73 L Hgb 7.6 L Hct 23.6 L MCV MCH MCHC RDW 17.6 H Plt Count Lymph % (Auto) [place] % (Auto) Lymph # [place] # Baso # Seg Neutrophils % Seg Neuts % (Manual) Lymphocytes % (Manual) 13.0 L Monocytes % (Manual) Eosinophils % (Manual) Basophils % (Manual) Nucleated RBC % 1.0 H Seg Neutrophils # Seg Neutrophils # Man 12.9 H Lymphocytes # (Manual) Monocytes # (Manual) 1.4 H Eosinophils # (Manual) Basophils # (Manual) 0.2 H PT INR Fibrinogen dRVVT Confirm Interp Factor V Activity POC ABG pH POC ABG pCO2 POC ABG pO2 ABG pO2 ABG HCO3 ABG Base Excess ABG Hemoglobin Oxyhemoglobin Sodium Potassium Chloride 97.8 L Carbon Dioxide BUN 84 H Creatinine 1.6 H Glucose 133 H POC Glucose 134 H Lactic Acid Calcium Phosphorus Magnesium Direct Bilirubin AST ALT Alkaline Phosphatase Lactate Dehydrogenase Troponin T C-Reactive Protein Total Protein Albumin Prealbumin Triglycerides Cholesterol LDL Cholesterol Direct HDL Cholesterol Urine pH Urine WBC (Auto) Urine Creatinine Urine Total Protein Fluid Total Protein Vancomycin Trough Rheumatoid Factor Complement C4 Miscellaneous Test Crossmatch 12/19/16 12/19/16 12/19/16 09:36 11:12 18:29 WBC RBC Hgb Hct MCV MCH MCHC RDW Plt Count Lymph % (Auto) [place] % (Auto) Lymph # [place] # Baso # Seg Neutrophils % Seg Neuts % (Manual) Lymphocytes % (Manual) Monocytes % (Manual) Eosinophils % (Manual) Basophils % (Manual) Nucleated RBC % Seg Neutrophils # Seg Neutrophils # Man Lymphocytes # (Manual) Monocytes # (Manual) Eosinophils # (Manual) Basophils # (Manual) PT INR Fibrinogen dRVVT Confirm Interp Factor V Activity POC ABG pH 7.503 H POC ABG pCO2 30.1 L POC ABG pO2 ABG pO2 ABG HCO3 ABG Base Excess ABG Hemoglobin Oxyhemoglobin Sodium Potassium Chloride Carbon Dioxide BUN Creatinine Glucose POC Glucose 138 H 156 H Lactic Acid Calcium Phosphorus Magnesium Direct Bilirubin AST ALT Alkaline Phosphatase Lactate Dehydrogenase Troponin T C-Reactive Protein Total Protein Albumin Prealbumin Triglycerides Cholesterol LDL Cholesterol Direct HDL Cholesterol Urine pH Urine WBC (Auto) Urine Creatinine Urine Total Protein Fluid Total Protein Vancomycin Trough Rheumatoid Factor Complement C4 Miscellaneous Test Crossmatch 12/20/16 12/20/16 12/20/16 00:03 06:17 07:07 WBC RBC Hgb Hct MCV MCH MCHC RDW Plt Count Lymph % (Auto) [place] % (Auto) Lymph # [place] # Baso # Seg Neutrophils % Seg Neuts % (Manual) Lymphocytes % (Manual) Monocytes % (Manual) Eosinophils % (Manual) Basophils % (Manual) Nucleated RBC % Seg Neutrophils # Seg Neutrophils # Man Lymphocytes # (Manual) Monocytes # (Manual) Eosinophils # (Manual) Basophils # (Manual) PT INR Fibrinogen dRVVT Confirm Interp Factor V Activity POC ABG pH POC ABG pCO2 POC ABG pO2 ABG pO2 ABG HCO3 ABG Base Excess ABG Hemoglobin Oxyhemoglobin Sodium Potassium Chloride 97.1 L Carbon Dioxide 20 L BUN 97 H Creatinine 1.8 H Glucose 153 H POC Glucose 152 H 175 H Lactic Acid Calcium Phosphorus Magnesium Direct Bilirubin AST ALT Alkaline Phosphatase Lactate Dehydrogenase Troponin T C-Reactive Protein Total Protein Albumin Prealbumin Triglycerides Cholesterol LDL Cholesterol Direct HDL Cholesterol Urine pH Urine WBC (Auto) Urine Creatinine Urine Total Protein Fluid Total Protein Vancomycin Trough Rheumatoid Factor Complement C4 Miscellaneous Test Crossmatch 12/20/16 12/20/16 12/20/16 12:00 17:42 23:53 WBC RBC Hgb Hct MCV MCH MCHC RDW Plt Count Lymph % (Auto) [place] % (Auto) Lymph # [place] # Baso # Seg Neutrophils % Seg Neuts % (Manual) Lymphocytes % (Manual) Monocytes % (Manual) Eosinophils % (Manual) Basophils % (Manual) Nucleated RBC % Seg Neutrophils # Seg Neutrophils # Man Lymphocytes # (Manual) Monocytes # (Manual) Eosinophils # (Manual) Basophils # (Manual) PT INR Fibrinogen dRVVT Confirm Interp Factor V Activity POC ABG pH POC ABG pCO2 POC ABG pO2 ABG pO2 ABG HCO3 ABG Base Excess ABG Hemoglobin Oxyhemoglobin Sodium Potassium Chloride Carbon Dioxide BUN Creatinine Glucose POC Glucose 141 H 156 H 132 H Lactic Acid Calcium Phosphorus Magnesium Direct Bilirubin AST ALT Alkaline Phosphatase Lactate Dehydrogenase Troponin T C-Reactive Protein Total Protein Albumin Prealbumin Triglycerides Cholesterol LDL Cholesterol Direct HDL Cholesterol Urine pH Urine WBC (Auto) Urine Creatinine Urine Total Protein Fluid Total Protein Vancomycin Trough Rheumatoid Factor Complement C4 Miscellaneous Test Crossmatch 12/21/16 12/21/16 12/21/16 05:49 08:50 12:19 WBC RBC Hgb Hct MCV MCH MCHC RDW Plt Count Lymph % (Auto) [place] % (Auto) Lymph # [place] # Baso # Seg Neutrophils % Seg Neuts % (Manual) Lymphocytes % (Manual) Monocytes % (Manual) Eosinophils % (Manual) Basophils % (Manual) Nucleated RBC % Seg Neutrophils # Seg Neutrophils # Man Lymphocytes # (Manual) Monocytes # (Manual) Eosinophils # (Manual) Basophils # (Manual) PT INR Fibrinogen dRVVT Confirm Interp Factor V Activity POC ABG pH POC ABG pCO2 POC ABG pO2 ABG pO2 ABG HCO3 ABG Base Excess ABG Hemoglobin Oxyhemoglobin Sodium Potassium 5.2 H D Chloride Carbon Dioxide BUN 63 H Creatinine Glucose 122 H POC Glucose 132 H 136 H Lactic Acid Calcium 8.3 L Phosphorus Magnesium Direct Bilirubin AST ALT Alkaline Phosphatase Lactate Dehydrogenase Troponin T C-Reactive Protein Total Protein Albumin Prealbumin Triglycerides Cholesterol LDL Cholesterol Direct HDL Cholesterol Urine pH Urine WBC (Auto) Urine Creatinine Urine Total Protein Fluid Total Protein Vancomycin Trough Rheumatoid Factor Complement C4 Miscellaneous Test Crossmatch 12/21/16 12/21/16 12/22/16 17:22 23:58 05:49 WBC RBC Hgb Hct MCV MCH MCHC RDW Plt Count Lymph % (Auto) [place] % (Auto) Lymph # [place] # Baso # Seg Neutrophils % Seg Neuts % (Manual) Lymphocytes % (Manual) Monocytes % (Manual) Eosinophils % (Manual) Basophils % (Manual) Nucleated RBC % Seg Neutrophils # Seg Neutrophils # Man Lymphocytes # (Manual) Monocytes # (Manual) Eosinophils # (Manual) Basophils # (Manual) PT INR Fibrinogen dRVVT Confirm Interp Factor V Activity POC ABG pH POC ABG pCO2 POC ABG pO2 ABG pO2 ABG HCO3 ABG Base Excess ABG Hemoglobin Oxyhemoglobin Sodium Potassium Chloride Carbon Dioxide BUN Creatinine Glucose POC Glucose 135 H 149 H 140 H Lactic Acid Calcium Phosphorus Magnesium Direct Bilirubin AST ALT Alkaline Phosphatase Lactate Dehydrogenase Troponin T C-Reactive Protein Total Protein Albumin Prealbumin Triglycerides Cholesterol LDL Cholesterol Direct HDL Cholesterol Urine pH Urine WBC (Auto) Urine Creatinine Urine Total Protein Fluid Total Protein Vancomycin Trough Rheumatoid Factor Complement C4 Miscellaneous Test Crossmatch 12/22/16 12/22/16 12/22/16 06:10 11:17 17:31 WBC RBC Hgb Hct MCV MCH MCHC RDW Plt Count Lymph % (Auto) [place] % (Auto) Lymph # [place] # Baso # Seg Neutrophils % Seg Neuts % (Manual) Lymphocytes % (Manual) Monocytes % (Manual) Eosinophils % (Manual) Basophils % (Manual) Nucleated RBC % Seg Neutrophils # Seg Neutrophils # Man Lymphocytes # (Manual) Monocytes # (Manual) Eosinophils # (Manual) Basophils # (Manual) PT INR Fibrinogen dRVVT Confirm Interp Factor V Activity POC ABG pH POC ABG pCO2 POC ABG pO2 ABG pO2 ABG HCO3 ABG Base Excess ABG Hemoglobin Oxyhemoglobin Sodium Potassium Chloride Carbon Dioxide BUN 76 H Creatinine 1.5 H Glucose 241 H POC Glucose 193 H 148 H Lactic Acid Calcium Phosphorus Magnesium Direct Bilirubin AST ALT Alkaline Phosphatase Lactate Dehydrogenase Troponin T C-Reactive Protein Total Protein Albumin Prealbumin Triglycerides Cholesterol LDL Cholesterol Direct HDL Cholesterol Urine pH Urine WBC (Auto) Urine Creatinine Urine Total Protein Fluid Total Protein Vancomycin Trough Rheumatoid Factor Complement C4 Miscellaneous Test Crossmatch 12/22/16 12/23/16 12/23/16 23:58 05:00 05:26 WBC RBC Hgb Hct MCV MCH MCHC RDW Plt Count Lymph % (Auto) [place] % (Auto) Lymph # [place] # Baso # Seg Neutrophils % Seg Neuts % (Manual) Lymphocytes % (Manual) Monocytes % (Manual) Eosinophils % (Manual) Basophils % (Manual) Nucleated RBC % Seg Neutrophils # Seg Neutrophils # Man Lymphocytes # (Manual) Monocytes # (Manual) Eosinophils # (Manual) Basophils # (Manual) PT INR Fibrinogen dRVVT Confirm Interp Factor V Activity POC ABG pH POC ABG pCO2 POC ABG pO2 ABG pO2 ABG HCO3 ABG Base Excess ABG Hemoglobin Oxyhemoglobin Sodium Potassium Chloride Carbon Dioxide BUN 49 H Creatinine Glucose 143 H POC Glucose 165 H 154 H Lactic Acid Calcium 8.2 L Phosphorus Magnesium 1.60 L Direct Bilirubin AST ALT Alkaline Phosphatase Lactate Dehydrogenase Troponin T C-Reactive Protein Total Protein Albumin Prealbumin Triglycerides Cholesterol LDL Cholesterol Direct HDL Cholesterol Urine pH Urine WBC (Auto) Urine Creatinine Urine Total Protein Fluid Total Protein Vancomycin Trough Rheumatoid Factor Complement C4 Miscellaneous Test Crossmatch 12/23/16 12/23/16 12/24/16 12:35 17:01 00:01 WBC RBC Hgb Hct MCV MCH MCHC RDW Plt Count Lymph % (Auto) [place] % (Auto) Lymph # [place] # Baso # Seg Neutrophils % Seg Neuts % (Manual) Lymphocytes % (Manual) Monocytes % (Manual) Eosinophils % (Manual) Basophils % (Manual) Nucleated RBC % Seg Neutrophils # Seg Neutrophils # Man Lymphocytes # (Manual) Monocytes # (Manual) Eosinophils # (Manual) Basophils # (Manual) PT INR Fibrinogen dRVVT Confirm Interp Factor V Activity POC ABG pH POC ABG pCO2 POC ABG pO2 ABG pO2 ABG HCO3 ABG Base Excess ABG Hemoglobin Oxyhemoglobin Sodium Potassium Chloride Carbon Dioxide BUN Creatinine Glucose POC Glucose 164 H 149 H 135 H Lactic Acid Calcium Phosphorus Magnesium Direct Bilirubin AST ALT Alkaline Phosphatase Lactate Dehydrogenase Troponin T C-Reactive Protein Total Protein Albumin Prealbumin Triglycerides Cholesterol LDL Cholesterol Direct HDL Cholesterol Urine pH Urine WBC (Auto) Urine Creatinine Urine Total Protein Fluid Total Protein Vancomycin Trough Rheumatoid Factor Complement C4 Miscellaneous Test Crossmatch 12/24/16 12/24/16 12/24/16 05:41 07:01 11:38 WBC RBC Hgb Hct MCV MCH MCHC RDW Plt Count Lymph % (Auto) [place] % (Auto) Lymph # [place] # Baso # Seg Neutrophils % Seg Neuts % (Manual) Lymphocytes % (Manual) Monocytes % (Manual) Eosinophils % (Manual) Basophils % (Manual) Nucleated RBC % Seg Neutrophils # Seg Neutrophils # Man Lymphocytes # (Manual) Monocytes # (Manual) Eosinophils # (Manual) Basophils # (Manual) PT INR Fibrinogen dRVVT Confirm Interp Factor V Activity POC ABG pH POC ABG pCO2 POC ABG pO2 ABG pO2 ABG HCO3 ABG Base Excess ABG Hemoglobin Oxyhemoglobin Sodium Potassium Chloride Carbon Dioxide BUN 72 H Creatinine 1.3 H Glucose 130 H POC Glucose 132 H 156 H Lactic Acid Calcium 8.2 L Phosphorus Magnesium Direct Bilirubin AST ALT Alkaline Phosphatase Lactate Dehydrogenase Troponin T C-Reactive Protein Total Protein Albumin Prealbumin Triglycerides Cholesterol LDL Cholesterol Direct HDL Cholesterol Urine pH Urine WBC (Auto) Urine Creatinine Urine Total Protein Fluid Total Protein Vancomycin Trough Rheumatoid Factor Complement C4 Miscellaneous Test Crossmatch 12/24/16 12/25/16 12/25/16 17:53 00:23 05:45 WBC RBC Hgb Hct MCV MCH MCHC RDW Plt Count Lymph % (Auto) [place] % (Auto) Lymph # [place] # Baso # Seg Neutrophils % Seg Neuts % (Manual) Lymphocytes % (Manual) Monocytes % (Manual) Eosinophils % (Manual) Basophils % (Manual) Nucleated RBC % Seg Neutrophils # Seg Neutrophils # Man Lymphocytes # (Manual) Monocytes # (Manual) Eosinophils # (Manual) Basophils # (Manual) PT INR Fibrinogen dRVVT Confirm Interp Factor V Activity POC ABG pH POC ABG pCO2 POC ABG pO2 ABG pO2 ABG HCO3 ABG Base Excess ABG Hemoglobin Oxyhemoglobin Sodium 146 H Potassium Chloride Carbon Dioxide BUN 51 H Creatinine Glucose 109 H POC Glucose 169 H 117 H Lactic Acid Calcium Phosphorus Magnesium Direct Bilirubin AST ALT Alkaline Phosphatase Lactate Dehydrogenase Troponin T C-Reactive Protein Total Protein Albumin Prealbumin Triglycerides Cholesterol LDL Cholesterol Direct HDL Cholesterol Urine pH Urine WBC (Auto) Urine Creatinine Urine Total Protein Fluid Total Protein Vancomycin Trough Rheumatoid Factor Complement C4 Miscellaneous Test Crossmatch 12/25/16 12/25/16 12/25/16 06:43 11:29 17:14 WBC RBC Hgb Hct MCV MCH MCHC RDW Plt Count Lymph % (Auto) [place] % (Auto) Lymph # [place] # Baso # Seg Neutrophils % Seg Neuts % (Manual) Lymphocytes % (Manual) Monocytes % (Manual) Eosinophils % (Manual) Basophils % (Manual) Nucleated RBC % Seg Neutrophils # Seg Neutrophils # Man Lymphocytes # (Manual) Monocytes # (Manual) Eosinophils # (Manual) Basophils # (Manual) PT INR Fibrinogen dRVVT Confirm Interp Factor V Activity POC ABG pH POC ABG pCO2 POC ABG pO2 ABG pO2 ABG HCO3 ABG Base Excess ABG Hemoglobin Oxyhemoglobin Sodium Potassium Chloride Carbon Dioxide BUN Creatinine Glucose POC Glucose 117 H 128 H 120 H Lactic Acid Calcium Phosphorus Magnesium Direct Bilirubin AST ALT Alkaline Phosphatase Lactate Dehydrogenase Troponin T C-Reactive Protein Total Protein Albumin Prealbumin Triglycerides Cholesterol LDL Cholesterol Direct HDL Cholesterol Urine pH Urine WBC (Auto) Urine Creatinine Urine Total Protein Fluid Total Protein Vancomycin Trough Rheumatoid Factor Complement C4 Miscellaneous Test Crossmatch 12/25/16 12/26/16 12/26/16 23:54 05:40 05:50 WBC 16.2 H RBC 2.32 L Hgb 6.2 L Hct 20.1 L MCV MCH 27 L MCHC RDW 18.6 H Plt Count Lymph % (Auto) [place] % (Auto) Lymph # [place] # Baso # Seg Neutrophils % Seg Neuts % (Manual) Lymphocytes % (Manual) Monocytes % (Manual) Eosinophils % (Manual) Basophils % (Manual) Nucleated RBC % Seg Neutrophils # Seg Neutrophils # Man Lymphocytes # (Manual) Monocytes # (Manual) Eosinophils # (Manual) Basophils # (Manual) PT INR Fibrinogen dRVVT Confirm Interp Factor V Activity POC ABG pH POC ABG pCO2 POC ABG pO2 ABG pO2 ABG HCO3 ABG Base Excess ABG Hemoglobin Oxyhemoglobin Sodium Potassium Chloride Carbon Dioxide BUN Creatinine Glucose POC Glucose 126 H 132 H Lactic Acid Calcium Phosphorus Magnesium Direct Bilirubin AST ALT Alkaline Phosphatase Lactate Dehydrogenase Troponin T C-Reactive Protein Total Protein Albumin Prealbumin Triglycerides Cholesterol LDL Cholesterol Direct HDL Cholesterol Urine pH Urine WBC (Auto) Urine Creatinine Urine Total Protein Fluid Total Protein Vancomycin Trough Rheumatoid Factor Complement C4 Miscellaneous Test Crossmatch 12/26/16 12/26/16 12/26/16 05:50 12:17 12:33 WBC RBC Hgb Hct MCV MCH MCHC RDW Plt Count Lymph % (Auto) [place] % (Auto) Lymph # [place] # Baso # Seg Neutrophils % Seg Neuts % (Manual) Lymphocytes % (Manual) Monocytes % (Manual) Eosinophils % (Manual) Basophils % (Manual) Nucleated RBC % Seg Neutrophils # Seg Neutrophils # Man Lymphocytes # (Manual) Monocytes # (Manual) Eosinophils # (Manual) Basophils # (Manual) PT INR Fibrinogen dRVVT Confirm Interp Factor V Activity POC ABG pH POC ABG pCO2 POC ABG pO2 ABG pO2 ABG HCO3 ABG Base Excess ABG Hemoglobin Oxyhemoglobin Sodium Potassium Chloride Carbon Dioxide BUN 73 H Creatinine 1.3 H Glucose 113 H POC Glucose 117 H Lactic Acid Calcium Phosphorus Magnesium Direct Bilirubin AST ALT Alkaline Phosphatase Lactate Dehydrogenase Troponin T C-Reactive Protein Total Protein Albumin Prealbumin Triglycerides Cholesterol LDL Cholesterol Direct HDL Cholesterol Urine pH Urine WBC (Auto) Urine Creatinine Urine Total Protein Fluid Total Protein Vancomycin Trough Rheumatoid Factor Complement C4 Miscellaneous Test Crossmatch See Detail 12/26/16 12/26/16 12/27/16 20:00 23:21 05:00 WBC RBC Hgb 8.4 L Hct 26.3 L D MCV MCH MCHC RDW Plt Count Lymph % (Auto) [place] % (Auto) Lymph # [place] # Baso # Seg Neutrophils % Seg Neuts % (Manual) Lymphocytes % (Manual) Monocytes % (Manual) Eosinophils % (Manual) Basophils % (Manual) Nucleated RBC % Seg Neutrophils # Seg Neutrophils # Man Lymphocytes # (Manual) Monocytes # (Manual) Eosinophils # (Manual) Basophils # (Manual) PT INR Fibrinogen dRVVT Confirm Interp Factor V Activity POC ABG pH POC ABG pCO2 POC ABG pO2 ABG pO2 ABG HCO3 ABG Base Excess ABG Hemoglobin Oxyhemoglobin Sodium Potassium Chloride Carbon Dioxide BUN 85 H Creatinine 1.6 H Glucose 118 H POC Glucose 124 H Lactic Acid Calcium Phosphorus 4.80 H Magnesium Direct Bilirubin AST ALT Alkaline Phosphatase Lactate Dehydrogenase Troponin T C-Reactive Protein Total Protein Albumin Prealbumin Triglycerides Cholesterol LDL Cholesterol Direct HDL Cholesterol Urine pH Urine WBC (Auto) Urine Creatinine Urine Total Protein Fluid Total Protein Vancomycin Trough Rheumatoid Factor Complement C4 Miscellaneous Test Crossmatch 12/27/16 12/27/16 12/27/16 05:00 05:35 12:24 WBC RBC Hgb 7.6 L Hct 22.8 L MCV MCH MCHC RDW Plt Count Lymph % (Auto) [place] % (Auto) Lymph # [place] # Baso # Seg Neutrophils % Seg Neuts % (Manual) Lymphocytes % (Manual) Monocytes % (Manual) Eosinophils % (Manual) Basophils % (Manual) Nucleated RBC % Seg Neutrophils # Seg Neutrophils # Man Lymphocytes # (Manual) Monocytes # (Manual) Eosinophils # (Manual) Basophils # (Manual) PT INR Fibrinogen dRVVT Confirm Interp Factor V Activity POC ABG pH POC ABG pCO2 POC ABG pO2 ABG pO2 ABG HCO3 ABG Base Excess ABG Hemoglobin Oxyhemoglobin Sodium Potassium Chloride Carbon Dioxide BUN Creatinine Glucose POC Glucose 115 H 131 H Lactic Acid Calcium Phosphorus Magnesium Direct Bilirubin AST ALT Alkaline Phosphatase Lactate Dehydrogenase Troponin T C-Reactive Protein Total Protein Albumin Prealbumin Triglycerides Cholesterol LDL Cholesterol Direct HDL Cholesterol Urine pH Urine WBC (Auto) Urine Creatinine Urine Total Protein Fluid Total Protein Vancomycin Trough Rheumatoid Factor Complement C4 Miscellaneous Test Crossmatch 12/27/16 12/28/16 12/28/16 17:16 00:18 04:00 WBC RBC Hgb Hct MCV MCH MCHC RDW Plt Count Lymph % (Auto) [place] % (Auto) Lymph # [place] # Baso # Seg Neutrophils % Seg Neuts % (Manual) Lymphocytes % (Manual) Monocytes % (Manual) Eosinophils % (Manual) Basophils % (Manual) Nucleated RBC % Seg Neutrophils # Seg Neutrophils # Man Lymphocytes # (Manual) Monocytes # (Manual) Eosinophils # (Manual) Basophils # (Manual) PT INR Fibrinogen dRVVT Confirm Interp Factor V Activity POC ABG pH POC ABG pCO2 POC ABG pO2 ABG pO2 ABG HCO3 ABG Base Excess ABG Hemoglobin Oxyhemoglobin Sodium Potassium 3.5 L Chloride Carbon Dioxide BUN 57 H Creatinine Glucose 118 H POC Glucose 136 H 120 H Lactic Acid Calcium 8.3 L Phosphorus Magnesium Direct Bilirubin AST ALT Alkaline Phosphatase Lactate Dehydrogenase Troponin T C-Reactive Protein Total Protein Albumin Prealbumin Triglycerides Cholesterol LDL Cholesterol Direct HDL Cholesterol Urine pH Urine WBC (Auto) Urine Creatinine Urine Total Protein Fluid Total Protein Vancomycin Trough Rheumatoid Factor Complement C4 Miscellaneous Test Crossmatch 12/28/16 12/28/16 12/28/16 04:00 05:11 08:30 WBC 17.0 H RBC 2.58 L Hgb 7.1 L Hct 22.0 L MCV MCH MCHC RDW 17.6 H Plt Count Lymph % (Auto) 12.2 L [place] % (Auto) Lymph # [place] # 1.1 H Baso # Seg Neutrophils % 80.5 H Seg Neuts % (Manual) Lymphocytes % (Manual) Monocytes % (Manual) Eosinophils % (Manual) Basophils % (Manual) Nucleated RBC % Seg Neutrophils # 13.7 H Seg Neutrophils # Man Lymphocytes # (Manual) Monocytes # (Manual) Eosinophils # (Manual) Basophils # (Manual) PT 16.1 H INR 1.23 H Fibrinogen dRVVT Confirm Interp Factor V Activity POC ABG pH POC ABG pCO2 POC ABG pO2 ABG pO2 ABG HCO3 ABG Base Excess ABG Hemoglobin Oxyhemoglobin Sodium Potassium Chloride Carbon Dioxide BUN Creatinine Glucose POC Glucose 122 H Lactic Acid Calcium Phosphorus Magnesium Direct Bilirubin AST ALT Alkaline Phosphatase Lactate Dehydrogenase Troponin T C-Reactive Protein Total Protein Albumin Prealbumin Triglycerides Cholesterol LDL Cholesterol Direct HDL Cholesterol Urine pH Urine WBC (Auto) Urine Creatinine Urine Total Protein Fluid Total Protein Vancomycin Trough Rheumatoid Factor Complement C4 Miscellaneous Test Crossmatch 12/28/16 12/28/16 12/28/16 12:27 16:32 23:46 WBC RBC Hgb Hct MCV MCH MCHC RDW Plt Count Lymph % (Auto) [place] % (Auto) Lymph # [place] # Baso # Seg Neutrophils % Seg Neuts % (Manual) Lymphocytes % (Manual) Monocytes % (Manual) Eosinophils % (Manual) Basophils % (Manual) Nucleated RBC % Seg Neutrophils # Seg Neutrophils # Man Lymphocytes # (Manual) Monocytes # (Manual) Eosinophils # (Manual) Basophils # (Manual) PT INR Fibrinogen dRVVT Confirm Interp Factor V Activity POC ABG pH POC ABG pCO2 POC ABG pO2 ABG pO2 ABG HCO3 ABG Base Excess ABG Hemoglobin Oxyhemoglobin Sodium Potassium Chloride Carbon Dioxide BUN Creatinine Glucose POC Glucose 127 H 117 H 108 H Lactic Acid Calcium Phosphorus Magnesium Direct Bilirubin AST ALT Alkaline Phosphatase Lactate Dehydrogenase Troponin T C-Reactive Protein Total Protein Albumin Prealbumin Triglycerides Cholesterol LDL Cholesterol Direct HDL Cholesterol Urine pH Urine WBC (Auto) Urine Creatinine Urine Total Protein Fluid Total Protein Vancomycin Trough Rheumatoid Factor Complement C4 Miscellaneous Test Crossmatch 12/29/16 12/29/16 12/29/16 05:15 05:15 05:32 WBC RBC Hgb Hct MCV MCH MCHC RDW Plt Count Lymph % (Auto) [place] % (Auto) Lymph # [place] # Baso # Seg Neutrophils % Seg Neuts % (Manual) Lymphocytes % (Manual) Monocytes % (Manual) Eosinophils % (Manual) Basophils % (Manual) Nucleated RBC % Seg Neutrophils # Seg Neutrophils # Man Lymphocytes # (Manual) Monocytes # (Manual) Eosinophils # (Manual) Basophils # (Manual) PT INR Fibrinogen dRVVT Confirm Interp Factor V Activity POC ABG pH POC ABG pCO2 POC ABG pO2 ABG pO2 ABG HCO3 ABG Base Excess ABG Hemoglobin Oxyhemoglobin Sodium Potassium Chloride Carbon Dioxide BUN 74 H Creatinine 1.6 H Glucose 111 H POC Glucose 123 H Lactic Acid Calcium Phosphorus Magnesium Direct Bilirubin AST ALT Alkaline Phosphatase Lactate Dehydrogenase Troponin T C-Reactive Protein Total Protein Albumin Prealbumin 0.110 L Triglycerides Cholesterol LDL Cholesterol Direct HDL Cholesterol Urine pH Urine WBC (Auto) Urine Creatinine Urine Total Protein Fluid Total Protein Vancomycin Trough Rheumatoid Factor Complement C4 Miscellaneous Test Crossmatch 12/29/16 12/29/16 12/29/16 11:43 13:45 14:00 WBC 13.8 H RBC 2.26 L Hgb 6.3 L Hct 20.4 L MCV MCH MCHC RDW 18.3 H Plt Count Lymph % (Auto) [place] % (Auto) Lymph # [place] # 0.9 H Baso # Seg Neutrophils % 78.6 H Seg Neuts % (Manual) Lymphocytes % (Manual) Monocytes % (Manual) Eosinophils % (Manual) Basophils % (Manual) Nucleated RBC % Seg Neutrophils # 10.8 H Seg Neutrophils # Man Lymphocytes # (Manual) Monocytes # (Manual) Eosinophils # (Manual) Basophils # (Manual) PT INR Fibrinogen dRVVT Confirm Interp Factor V Activity POC ABG pH POC ABG pCO2 POC ABG pO2 ABG pO2 ABG HCO3 ABG Base Excess ABG Hemoglobin Oxyhemoglobin Sodium Potassium Chloride Carbon Dioxide BUN Creatinine Glucose POC Glucose 133 H Lactic Acid Calcium Phosphorus Magnesium Direct Bilirubin AST ALT Alkaline Phosphatase Lactate Dehydrogenase Troponin T C-Reactive Protein Total Protein Albumin Prealbumin Triglycerides Cholesterol LDL Cholesterol Direct HDL Cholesterol Urine pH Urine WBC (Auto) Urine Creatinine Urine Total Protein Fluid Total Protein Vancomycin Trough Rheumatoid Factor Complement C4 Miscellaneous Test Crossmatch See Detail 12/29/16 12/29/16 12/29/16 17:03 23:15 23:22 WBC RBC Hgb 7.3 L Hct 22.3 L MCV MCH MCHC RDW Plt Count Lymph % (Auto) [place] % (Auto) Lymph # [place] # Baso # Seg Neutrophils % Seg Neuts % (Manual) Lymphocytes % (Manual) Monocytes % (Manual) Eosinophils % (Manual) Basophils % (Manual) Nucleated RBC % Seg Neutrophils # Seg Neutrophils # Man Lymphocytes # (Manual) Monocytes # (Manual) Eosinophils # (Manual) Basophils # (Manual) PT INR Fibrinogen dRVVT Confirm Interp Factor V Activity POC ABG pH POC ABG pCO2 POC ABG pO2 ABG pO2 ABG HCO3 ABG Base Excess ABG Hemoglobin Oxyhemoglobin Sodium Potassium Chloride Carbon Dioxide BUN Creatinine Glucose POC Glucose 139 H 120 H Lactic Acid Calcium Phosphorus Magnesium Direct Bilirubin AST ALT Alkaline Phosphatase Lactate Dehydrogenase Troponin T C-Reactive Protein Total Protein Albumin Prealbumin Triglycerides Cholesterol LDL Cholesterol Direct HDL Cholesterol Urine pH Urine WBC (Auto) Urine Creatinine Urine Total Protein Fluid Total Protein Vancomycin Trough Rheumatoid Factor Complement C4 Miscellaneous Test Crossmatch 12/30/16 12/30/16 12/30/16 04:20 04:20 05:43 WBC 15.6 H RBC 2.81 L Hgb 8.0 L Hct 24.0 L MCV MCH MCHC RDW 16.9 H Plt Count Lymph % (Auto) [place] % (Auto) Lymph # [place] # 1.0 H Baso # Seg Neutrophils % 76.2 H Seg Neuts % (Manual) Lymphocytes % (Manual) Monocytes % (Manual) Eosinophils % (Manual) Basophils % (Manual) Nucleated RBC % Seg Neutrophils # 11.9 H Seg Neutrophils # Man Lymphocytes # (Manual) Monocytes # (Manual) Eosinophils # (Manual) Basophils # (Manual) PT INR Fibrinogen dRVVT Confirm Interp Factor V Activity POC ABG pH POC ABG pCO2 POC ABG pO2 ABG pO2 ABG HCO3 ABG Base Excess ABG Hemoglobin Oxyhemoglobin Sodium Potassium Chloride Carbon Dioxide BUN 87 H Creatinine 1.8 H Glucose 119 H POC Glucose 115 H Lactic Acid Calcium Phosphorus Magnesium Direct Bilirubin AST ALT Alkaline Phosphatase Lactate Dehydrogenase Troponin T C-Reactive Protein Total Protein Albumin Prealbumin Triglycerides Cholesterol LDL Cholesterol Direct HDL Cholesterol Urine pH Urine WBC (Auto) Urine Creatinine Urine Total Protein Fluid Total Protein Vancomycin Trough Rheumatoid Factor Complement C4 Miscellaneous Test Crossmatch 12/30/16 12/30/16 12/31/16 17:27 23:21 04:00 WBC RBC Hgb Hct MCV MCH MCHC RDW Plt Count Lymph % (Auto) [place] % (Auto) Lymph # [place] # Baso # Seg Neutrophils % Seg Neuts % (Manual) Lymphocytes % (Manual) Monocytes % (Manual) Eosinophils % (Manual) Basophils % (Manual) Nucleated RBC % Seg Neutrophils # Seg Neutrophils # Man Lymphocytes # (Manual) Monocytes # (Manual) Eosinophils # (Manual) Basophils # (Manual) PT INR Fibrinogen dRVVT Confirm Interp Factor V Activity POC ABG pH POC ABG pCO2 POC ABG pO2 ABG pO2 ABG HCO3 ABG Base Excess ABG Hemoglobin Oxyhemoglobin Sodium Potassium Chloride Carbon Dioxide BUN 59 H Creatinine Glucose 298 H POC Glucose 144 H 125 H Lactic Acid Calcium Phosphorus Magnesium Direct Bilirubin AST ALT Alkaline Phosphatase Lactate Dehydrogenase Troponin T C-Reactive Protein Total Protein Albumin Prealbumin Triglycerides Cholesterol LDL Cholesterol Direct HDL Cholesterol Urine pH Urine WBC (Auto) Urine Creatinine Urine Total Protein Fluid Total Protein Vancomycin Trough Rheumatoid Factor Complement C4 Miscellaneous Test Crossmatch 12/31/16 12/31/16 12/31/16 05:11 12:18 18:17 WBC RBC Hgb Hct MCV MCH MCHC RDW Plt Count Lymph % (Auto) [place] % (Auto) Lymph # [place] # Baso # Seg Neutrophils % Seg Neuts % (Manual) Lymphocytes % (Manual) Monocytes % (Manual) Eosinophils % (Manual) Basophils % (Manual) Nucleated RBC % Seg Neutrophils # Seg Neutrophils # Man Lymphocytes # (Manual) Monocytes # (Manual) Eosinophils # (Manual) Basophils # (Manual) PT INR Fibrinogen dRVVT Confirm Interp Factor V Activity POC ABG pH POC ABG pCO2 POC ABG pO2 ABG pO2 ABG HCO3 ABG Base Excess ABG Hemoglobin Oxyhemoglobin Sodium Potassium Chloride Carbon Dioxide BUN Creatinine Glucose POC Glucose 167 H 125 H 133 H Lactic Acid Calcium Phosphorus Magnesium Direct Bilirubin AST ALT Alkaline Phosphatase Lactate Dehydrogenase Troponin T C-Reactive Protein Total Protein Albumin Prealbumin Triglycerides Cholesterol LDL Cholesterol Direct HDL Cholesterol Urine pH Urine WBC (Auto) Urine Creatinine Urine Total Protein Fluid Total Protein Vancomycin Trough Rheumatoid Factor Complement C4 Miscellaneous Test Crossmatch 12/31/16 01/01/17 01/01/17 23:55 05:00 05:12 WBC RBC Hgb Hct MCV MCH MCHC RDW Plt Count Lymph % (Auto) [place] % (Auto) Lymph # [place] # Baso # Seg Neutrophils % Seg Neuts % (Manual) Lymphocytes % (Manual) Monocytes % (Manual) Eosinophils % (Manual) Basophils % (Manual) Nucleated RBC % Seg Neutrophils # Seg Neutrophils # Man Lymphocytes # (Manual) Monocytes # (Manual) Eosinophils # (Manual) Basophils # (Manual) PT INR Fibrinogen dRVVT Confirm Interp Factor V Activity POC ABG pH POC ABG pCO2 POC ABG pO2 ABG pO2 ABG HCO3 ABG Base Excess ABG Hemoglobin Oxyhemoglobin Sodium Potassium Chloride Carbon Dioxide BUN 76 H Creatinine 1.5 H Glucose 109 H POC Glucose 129 H 129 H Lactic Acid Calcium Phosphorus Magnesium Direct Bilirubin AST ALT Alkaline Phosphatase 536 H Lactate Dehydrogenase Troponin T C-Reactive Protein Total Protein Albumin 1.5 L Prealbumin Triglycerides Cholesterol LDL Cholesterol Direct HDL Cholesterol Urine pH Urine WBC (Auto) Urine Creatinine Urine Total Protein Fluid Total Protein Vancomycin Trough Rheumatoid Factor Complement C4 Miscellaneous Test Crossmatch 01/01/17 01/01/17 01/01/17 12:25 17:01 23:32 WBC RBC Hgb Hct MCV MCH MCHC RDW Plt Count Lymph % (Auto) [place] % (Auto) Lymph # [place] # Baso # Seg Neutrophils % Seg Neuts % (Manual) Lymphocytes % (Manual) Monocytes % (Manual) Eosinophils % (Manual) Basophils % (Manual) Nucleated RBC % Seg Neutrophils # Seg Neutrophils # Man Lymphocytes # (Manual) Monocytes # (Manual) Eosinophils # (Manual) Basophils # (Manual) PT INR Fibrinogen dRVVT Confirm Interp Factor V Activity POC ABG pH POC ABG pCO2 POC ABG pO2 ABG pO2 ABG HCO3 ABG Base Excess ABG Hemoglobin Oxyhemoglobin Sodium Potassium Chloride Carbon Dioxide BUN Creatinine Glucose POC Glucose 140 H 142 H 112 H Lactic Acid Calcium Phosphorus Magnesium Direct Bilirubin AST ALT Alkaline Phosphatase Lactate Dehydrogenase Troponin T C-Reactive Protein Total Protein Albumin Prealbumin Triglycerides Cholesterol LDL Cholesterol Direct HDL Cholesterol Urine pH Urine WBC (Auto) Urine Creatinine Urine Total Protein Fluid Total Protein Vancomycin Trough Rheumatoid Factor Complement C4 Miscellaneous Test Crossmatch 01/02/17 01/02/17 01/02/17 04:56 06:00 11:37 WBC RBC Hgb Hct MCV MCH MCHC RDW Plt Count Lymph % (Auto) [place] % (Auto) Lymph # [place] # Baso # Seg Neutrophils % Seg Neuts % (Manual) Lymphocytes % (Manual) Monocytes % (Manual) Eosinophils % (Manual) Basophils % (Manual) Nucleated RBC % Seg Neutrophils # Seg Neutrophils # Man Lymphocytes # (Manual) Monocytes # (Manual) Eosinophils # (Manual) Basophils # (Manual) PT INR Fibrinogen dRVVT Confirm Interp Factor V Activity POC ABG pH POC ABG pCO2 POC ABG pO2 ABG pO2 ABG HCO3 ABG Base Excess ABG Hemoglobin Oxyhemoglobin Sodium Potassium Chloride Carbon Dioxide BUN 88 H Creatinine 1.7 H Glucose 113 H POC Glucose 136 H 200 H Lactic Acid Calcium Phosphorus Magnesium Direct Bilirubin AST ALT Alkaline Phosphatase Lactate Dehydrogenase Troponin T C-Reactive Protein Total Protein Albumin Prealbumin Triglycerides Cholesterol LDL Cholesterol Direct HDL Cholesterol Urine pH Urine WBC (Auto) Urine Creatinine Urine Total Protein Fluid Total Protein Vancomycin Trough Rheumatoid Factor Complement C4 Miscellaneous Test Crossmatch 01/02/17 01/02/17 01/03/17 17:42 22:52 04:54 WBC RBC Hgb Hct MCV MCH MCHC RDW Plt Count Lymph % (Auto) [place] % (Auto) Lymph # [place] # Baso # Seg Neutrophils % Seg Neuts % (Manual) Lymphocytes % (Manual) Monocytes % (Manual) Eosinophils % (Manual) Basophils % (Manual) Nucleated RBC % Seg Neutrophils # Seg Neutrophils # Man Lymphocytes # (Manual) Monocytes # (Manual) Eosinophils # (Manual) Basophils # (Manual) PT INR Fibrinogen dRVVT Confirm Interp Factor V Activity POC ABG pH POC ABG pCO2 POC ABG pO2 ABG pO2 ABG HCO3 ABG Base Excess ABG Hemoglobin Oxyhemoglobin Sodium Potassium Chloride Carbon Dioxide BUN Creatinine Glucose POC Glucose 112 H 133 H 111 H Lactic Acid Calcium Phosphorus Magnesium Direct Bilirubin AST ALT Alkaline Phosphatase Lactate Dehydrogenase Troponin T C-Reactive Protein Total Protein Albumin Prealbumin Triglycerides Cholesterol LDL Cholesterol Direct HDL Cholesterol Urine pH Urine WBC (Auto) Urine Creatinine Urine Total Protein Fluid Total Protein Vancomycin Trough Rheumatoid Factor Complement C4 Miscellaneous Test Crossmatch 01/03/17 01/03/17 01/03/17 05:00 05:00 14:02 WBC 11.2 H RBC 2.56 L Hgb 7.2 L Hct 22.3 L MCV MCH MCHC RDW 17.3 H Plt Count Lymph % (Auto) [place] % (Auto) 10.0 H Lymph # [place] # 1.1 H Baso # Seg Neutrophils % 70.5 H Seg Neuts % (Manual) Lymphocytes % (Manual) Monocytes % (Manual) Eosinophils % (Manual) Basophils % (Manual) Nucleated RBC % Seg Neutrophils # 7.9 H Seg Neutrophils # Man Lymphocytes # (Manual) Monocytes # (Manual) Eosinophils # (Manual) Basophils # (Manual) PT INR Fibrinogen dRVVT Confirm Interp Factor V Activity POC ABG pH POC ABG pCO2 POC ABG pO2 ABG pO2 ABG HCO3 ABG Base Excess ABG Hemoglobin Oxyhemoglobin Sodium Potassium Chloride Carbon Dioxide BUN 60 H Creatinine 1.3 H Glucose 110 H POC Glucose 119 H Lactic Acid Calcium Phosphorus Magnesium Direct Bilirubin AST ALT Alkaline Phosphatase Lactate Dehydrogenase Troponin T C-Reactive Protein Total Protein Albumin Prealbumin Triglycerides Cholesterol LDL Cholesterol Direct HDL Cholesterol Urine pH Urine WBC (Auto) Urine Creatinine Urine Total Protein Fluid Total Protein Vancomycin Trough Rheumatoid Factor Complement C4 Miscellaneous Test Crossmatch 01/03/17 01/03/17 01/04/17 18:13 23:40 05:57 WBC RBC Hgb Hct MCV MCH MCHC RDW Plt Count Lymph % (Auto) [place] % (Auto) Lymph # [place] # Baso # Seg Neutrophils % Seg Neuts % (Manual) Lymphocytes % (Manual) Monocytes % (Manual) Eosinophils % (Manual) Basophils % (Manual) Nucleated RBC % Seg Neutrophils # Seg Neutrophils # Man Lymphocytes # (Manual) Monocytes # (Manual) Eosinophils # (Manual) Basophils # (Manual) PT INR Fibrinogen dRVVT Confirm Interp Factor V Activity POC ABG pH POC ABG pCO2 POC ABG pO2 ABG pO2 ABG HCO3 ABG Base Excess ABG Hemoglobin Oxyhemoglobin Sodium Potassium Chloride Carbon Dioxide BUN Creatinine Glucose POC Glucose 107 H 129 H 111 H Lactic Acid Calcium Phosphorus Magnesium Direct Bilirubin AST ALT Alkaline Phosphatase Lactate Dehydrogenase Troponin T C-Reactive Protein Total Protein Albumin Prealbumin Triglycerides Cholesterol LDL Cholesterol Direct HDL Cholesterol Urine pH Urine WBC (Auto) Urine Creatinine Urine Total Protein Fluid Total Protein Vancomycin Trough Rheumatoid Factor Complement C4 Miscellaneous Test Crossmatch 01/04/17 01/04/17 01/04/17 12:46 15:27 17:11 WBC RBC Hgb Hct MCV MCH MCHC RDW Plt Count Lymph % (Auto) [place] % (Auto) Lymph # [place] # Baso # Seg Neutrophils % Seg Neuts % (Manual) Lymphocytes % (Manual) Monocytes % (Manual) Eosinophils % (Manual) Basophils % (Manual) Nucleated RBC % Seg Neutrophils # Seg Neutrophils # Man Lymphocytes # (Manual) Monocytes # (Manual) Eosinophils # (Manual) Basophils # (Manual) PT INR Fibrinogen dRVVT Confirm Interp Factor V Activity POC ABG pH POC ABG pCO2 POC ABG pO2 ABG pO2 ABG HCO3 ABG Base Excess ABG Hemoglobin Oxyhemoglobin Sodium Potassium Chloride Carbon Dioxide BUN 43 H Creatinine Glucose 124 H POC Glucose 159 H 125 H Lactic Acid Calcium 8.0 L Phosphorus 2.10 L Magnesium Direct Bilirubin AST ALT Alkaline Phosphatase Lactate Dehydrogenase Troponin T C-Reactive Protein Total Protein Albumin Prealbumin Triglycerides Cholesterol LDL Cholesterol Direct HDL Cholesterol Urine pH Urine WBC (Auto) Urine Creatinine Urine Total Protein Fluid Total Protein Vancomycin Trough Rheumatoid Factor Complement C4 Miscellaneous Test Crossmatch 01/04/17 01/05/17 01/05/17 23:31 04:00 05:46 WBC RBC Hgb Hct MCV MCH MCHC RDW Plt Count Lymph % (Auto) [place] % (Auto) Lymph # [place] # Baso # Seg Neutrophils % Seg Neuts % (Manual) Lymphocytes % (Manual) Monocytes % (Manual) Eosinophils % (Manual) Basophils % (Manual) Nucleated RBC % Seg Neutrophils # Seg Neutrophils # Man Lymphocytes # (Manual) Monocytes # (Manual) Eosinophils # (Manual) Basophils # (Manual) PT INR Fibrinogen dRVVT Confirm Interp Factor V Activity POC ABG pH POC ABG pCO2 POC ABG pO2 ABG pO2 ABG HCO3 ABG Base Excess ABG Hemoglobin Oxyhemoglobin Sodium Potassium Chloride Carbon Dioxide BUN 52 H Creatinine 1.3 H Glucose 113 H POC Glucose 123 H 118 H Lactic Acid Calcium Phosphorus 2.40 L Magnesium Direct Bilirubin AST ALT Alkaline Phosphatase Lactate Dehydrogenase Troponin T C-Reactive Protein Total Protein Albumin Prealbumin Triglycerides Cholesterol LDL Cholesterol Direct HDL Cholesterol Urine pH Urine WBC (Auto) Urine Creatinine Urine Total Protein Fluid Total Protein Vancomycin Trough Rheumatoid Factor Complement C4 Miscellaneous Test Crossmatch 01/05/17 01/05/17 01/05/17 11:41 17:48 23:27 WBC RBC Hgb Hct MCV MCH MCHC RDW Plt Count Lymph % (Auto) [place] % (Auto) Lymph # [place] # Baso # Seg Neutrophils % Seg Neuts % (Manual) Lymphocytes % (Manual) Monocytes % (Manual) Eosinophils % (Manual) Basophils % (Manual) Nucleated RBC % Seg Neutrophils # Seg Neutrophils # Man Lymphocytes # (Manual) Monocytes # (Manual) Eosinophils # (Manual) Basophils # (Manual) PT INR Fibrinogen dRVVT Confirm Interp Factor V Activity POC ABG pH POC ABG pCO2 POC ABG pO2 ABG pO2 ABG HCO3 ABG Base Excess ABG Hemoglobin Oxyhemoglobin Sodium Potassium Chloride Carbon Dioxide BUN Creatinine Glucose POC Glucose 163 H 142 H 155 H Lactic Acid Calcium Phosphorus Magnesium Direct Bilirubin AST ALT Alkaline Phosphatase Lactate Dehydrogenase Troponin T C-Reactive Protein Total Protein Albumin Prealbumin Triglycerides Cholesterol LDL Cholesterol Direct HDL Cholesterol Urine pH Urine WBC (Auto) Urine Creatinine Urine Total Protein Fluid Total Protein Vancomycin Trough Rheumatoid Factor Complement C4 Miscellaneous Test Crossmatch 01/06/17 01/06/17 01/06/17 05:20 07:35 11:18 WBC RBC Hgb Hct MCV MCH MCHC RDW Plt Count Lymph % (Auto) [place] % (Auto) Lymph # [place] # Baso # Seg Neutrophils % Seg Neuts % (Manual) Lymphocytes % (Manual) Monocytes % (Manual) Eosinophils % (Manual) Basophils % (Manual) Nucleated RBC % Seg Neutrophils # Seg Neutrophils # Man Lymphocytes # (Manual) Monocytes # (Manual) Eosinophils # (Manual) Basophils # (Manual) PT INR Fibrinogen dRVVT Confirm Interp Factor V Activity POC ABG pH POC ABG pCO2 POC ABG pO2 ABG pO2 ABG HCO3 ABG Base Excess ABG Hemoglobin Oxyhemoglobin Sodium Potassium Chloride Carbon Dioxide BUN 74 H Creatinine 1.6 H Glucose 135 H POC Glucose 108 H 149 H Lactic Acid Calcium Phosphorus Magnesium Direct Bilirubin AST ALT Alkaline Phosphatase Lactate Dehydrogenase Troponin T C-Reactive Protein Total Protein Albumin Prealbumin Triglycerides Cholesterol LDL Cholesterol Direct HDL Cholesterol Urine pH Urine WBC (Auto) Urine Creatinine Urine Total Protein Fluid Total Protein Vancomycin Trough Rheumatoid Factor Complement C4 Miscellaneous Test Crossmatch 01/06/17 01/07/17 01/07/17 17:17 00:23 05:31 WBC RBC Hgb Hct MCV MCH MCHC RDW Plt Count Lymph % (Auto) [place] % (Auto) Lymph # [place] # Baso # Seg Neutrophils % Seg Neuts % (Manual) Lymphocytes % (Manual) Monocytes % (Manual) Eosinophils % (Manual) Basophils % (Manual) Nucleated RBC % Seg Neutrophils # Seg Neutrophils # Man Lymphocytes # (Manual) Monocytes # (Manual) Eosinophils # (Manual) Basophils # (Manual) PT INR Fibrinogen dRVVT Confirm Interp Factor V Activity POC ABG pH POC ABG pCO2 POC ABG pO2 ABG pO2 ABG HCO3 ABG Base Excess ABG Hemoglobin Oxyhemoglobin Sodium Potassium Chloride Carbon Dioxide BUN Creatinine Glucose POC Glucose 146 H 165 H 153 H Lactic Acid Calcium Phosphorus Magnesium Direct Bilirubin AST ALT Alkaline Phosphatase Lactate Dehydrogenase Troponin T C-Reactive Protein Total Protein Albumin Prealbumin Triglycerides Cholesterol LDL Cholesterol Direct HDL Cholesterol Urine pH Urine WBC (Auto) Urine Creatinine Urine Total Protein Fluid Total Protein Vancomycin Trough Rheumatoid Factor Complement C4 Miscellaneous Test Crossmatch 01/07/17 01/07/17 01/07/17 06:00 11:39 17:11 WBC RBC Hgb Hct MCV MCH MCHC RDW Plt Count Lymph % (Auto) [place] % (Auto) Lymph # [place] # Baso # Seg Neutrophils % Seg Neuts % (Manual) Lymphocytes % (Manual) Monocytes % (Manual) Eosinophils % (Manual) Basophils % (Manual) Nucleated RBC % Seg Neutrophils # Seg Neutrophils # Man Lymphocytes # (Manual) Monocytes # (Manual) Eosinophils # (Manual) Basophils # (Manual) PT INR Fibrinogen dRVVT Confirm Interp Factor V Activity POC ABG pH POC ABG pCO2 POC ABG pO2 ABG pO2 ABG HCO3 ABG Base Excess ABG Hemoglobin Oxyhemoglobin Sodium Potassium Chloride Carbon Dioxide BUN 42 H Creatinine Glucose 175 H POC Glucose 163 H 163 H Lactic Acid Calcium Phosphorus 2.40 L D Magnesium Direct Bilirubin AST ALT Alkaline Phosphatase Lactate Dehydrogenase Troponin T C-Reactive Protein Total Protein Albumin Prealbumin Triglycerides Cholesterol LDL Cholesterol Direct HDL Cholesterol Urine pH Urine WBC (Auto) Urine Creatinine Urine Total Protein Fluid Total Protein Vancomycin Trough Rheumatoid Factor Complement C4 Miscellaneous Test Crossmatch 01/07/17 01/08/17 01/08/17 23:40 05:00 05:00 WBC 27.4 H RBC 2.27 L Hgb 6.1 L Hct 20.4 L MCV MCH 27 L MCHC RDW 17.8 H Plt Count Lymph % (Auto) [place] % (Auto) Lymph # [place] # Baso # Seg Neutrophils % Seg Neuts % (Manual) Lymphocytes % (Manual) Monocytes % (Manual) Eosinophils % (Manual) Basophils % (Manual) Nucleated RBC % Seg Neutrophils # Seg Neutrophils # Man Lymphocytes # (Manual) Monocytes # (Manual) Eosinophils # (Manual) Basophils # (Manual) PT INR Fibrinogen dRVVT Confirm Interp Factor V Activity POC ABG pH POC ABG pCO2 POC ABG pO2 ABG pO2 ABG HCO3 ABG Base Excess ABG Hemoglobin Oxyhemoglobin Sodium Potassium Chloride Carbon Dioxide 16 L D BUN 62 H Creatinine 1.6 H D Glucose 103 H POC Glucose 135 H Lactic Acid Calcium Phosphorus Magnesium Direct Bilirubin AST ALT Alkaline Phosphatase Lactate Dehydrogenase Troponin T C-Reactive Protein Total Protein Albumin Prealbumin Triglycerides Cholesterol LDL Cholesterol Direct HDL Cholesterol Urine pH Urine WBC (Auto) Urine Creatinine Urine Total Protein Fluid Total Protein Vancomycin Trough Rheumatoid Factor Complement C4 Miscellaneous Test Crossmatch 01/08/17 01/08/17 01/08/17 05:25 10:37 10:37 WBC RBC Hgb Hct MCV MCH MCHC RDW Plt Count Lymph % (Auto) [place] % (Auto) Lymph # [place] # Baso # Seg Neutrophils % Seg Neuts % (Manual) Lymphocytes % (Manual) Monocytes % (Manual) Eosinophils % (Manual) Basophils % (Manual) Nucleated RBC % Seg Neutrophils # Seg Neutrophils # Man Lymphocytes # (Manual) Monocytes # (Manual) Eosinophils # (Manual) Basophils # (Manual) PT INR Fibrinogen dRVVT Confirm Interp Factor V Activity POC ABG pH POC ABG pCO2 POC ABG pO2 ABG pO2 ABG HCO3 ABG Base Excess ABG Hemoglobin Oxyhemoglobin Sodium Potassium Chloride Carbon Dioxide BUN Creatinine Glucose POC Glucose 106 H Lactic Acid Calcium Phosphorus Magnesium Direct Bilirubin AST ALT Alkaline Phosphatase Lactate Dehydrogenase Troponin T C-Reactive Protein 24.40 H Total Protein Albumin Prealbumin Triglycerides Cholesterol LDL Cholesterol Direct HDL Cholesterol Urine pH Urine WBC (Auto) Urine Creatinine Urine Total Protein Fluid Total Protein Vancomycin Trough Rheumatoid Factor Complement C4 Miscellaneous Test Crossmatch See Detail 01/08/17 01/08/17 10:37 11:33 WBC RBC Hgb Hct MCV MCH MCHC RDW Plt Count Lymph % (Auto) [place] % (Auto) Lymph # [place] # Baso # Seg Neutrophils % Seg Neuts % (Manual) Lymphocytes % (Manual) Monocytes % (Manual) Eosinophils % (Manual) Basophils % (Manual) Nucleated RBC % Seg Neutrophils # Seg Neutrophils # Man Lymphocytes # (Manual) Monocytes # (Manual) Eosinophils # (Manual) Basophils # (Manual) PT INR Fibrinogen dRVVT Confirm Interp Factor V Activity POC ABG pH POC ABG pCO2 POC ABG pO2 ABG pO2 ABG HCO3 ABG Base Excess ABG Hemoglobin Oxyhemoglobin Sodium Potassium Chloride Carbon Dioxide BUN Creatinine Glucose POC Glucose 157 H Lactic Acid 9.70 H* Calcium Phosphorus Magnesium Direct Bilirubin AST ALT Alkaline Phosphatase Lactate Dehydrogenase Troponin T C-Reactive Protein Total Protein Albumin Prealbumin Triglycerides Cholesterol LDL Cholesterol Direct HDL Cholesterol Urine pH Urine WBC (Auto) Urine Creatinine Urine Total Protein Fluid Total Protein Vancomycin Trough Rheumatoid Factor Complement C4 Miscellaneous Test Crossmatch Allied health notes reviewed: RT
[2017-01-08] MEDS: SODIUM BICARBONATE 150 MEQ in D5W 1,000 ML IV SCH (15:06)
[2017-01-08] MEDS ORDERED: TPN ADULT IV SCH (20:00)
[2017-01-09] MEDS: DUONEB *Not for PRN Use IH SCH ×4 (02:01→19:15)
[2017-01-09] MEDS: LOPRESSOR PO SCH ×4 (03:40→18:53)
[2017-01-09] MEDS: ZOFRAN IV PRN (03:40)
[2017-01-09] MEDS: MERREM/NS 500 MG/50 ML 500 MG/50 ML BAG IV SCH ×2 (03:41→13:07)
[2017-01-09] MEDS: REGLAN IV SCH ×2 (05:42→13:16)
[2017-01-09 05:53] LABS: Calcium 10.1 mg/dL (8.4-10.2)
[2017-01-09] MEDS: APRESOLINE PO SCH ×2 (06:00→13:14)
[2017-01-09] MEDS: HumuLIN R SUB-Q SCH ×3 (06:00→18:54)
[2017-01-09] MEDS: SODIUM BICARBONATE 150 MEQ in D5W 1,000 ML IV SCH (07:00)
--- NOTE | 2017-01-09 09:58 | Progress Note ---
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 Epogen 20k TIW * Dose medications for renal function * Avoid potential nephrotoxins * Rate control per cardiology * Vent management per pulm/CCM * Pressors prn for MAP>65 Subjective Date of service: 01/09/17 Principal diagnosis: Acute resp failure on MVS; S/P Acute CVA; Acute Encephalopathy; JUANITA Interval history: new events from last pm noted Objective - Exam Narrative Exam: Gen. appearance: Patient lying in bed, no apparent distress, 4. restraints HEENT: Normocephalic, atraumatic, pupils equally round and reactive to light, extraocular movement intact, and no sclericterus,. No JVD or thyromegaly or nodule,neck supple, no carotid bruit ,mucous membranes moist, unable to examine oral cavity Heart: S1, S2, regular rate and rhythm Lungs: Clear to auscultation bilaterally, breathing comfortable Abdomen: Positive bowel sounds, nontender, nondistended, no organomegaly Extremity: No edema, cyanosis, clubbing Skin: No rash, nodules, warm, dry Neuro: Difficult to assess, facial droop, moves all 4 extremities - Vital Signs Vital signs: Vital Signs - 12hr 01/08/17 01/08/17 01/08/17 22:00 22:09 22:11 Temperature 98.7 F Pulse Rate 114 H 146 H Pulse Rate [ Bilateral Throughout] Pulse Rate [ From Monitor] Respiratory 21 28 H Rate Respiratory Rate [Bilateral Throughout] Respiratory 19 Rate [ Generalized] Blood Pressure 107/77 107/77 O2 Sat by Pulse 100 100 Oximetry O2 Sat by Pulse Oximetry [ Assessment] 01/08/17 01/08/17 01/08/17 22:21 22:25 22:31 Temperature Pulse Rate 155 H 143 H 145 H Pulse Rate [ Bilateral Throughout] Pulse Rate [ From Monitor] Respiratory 32 H 22 Rate Respiratory Rate [Bilateral Throughout] Respiratory Rate [ Generalized] Blood Pressure 107/77 107/77 107/77 O2 Sat by Pulse 100 100 Oximetry O2 Sat by Pulse Oximetry [ Assessment] 01/08/17 01/08/17 01/08/17 22:41 22:51 23:00 Temperature Pulse Rate 140 H 142 H 138 H Pulse Rate [ Bilateral Throughout] Pulse Rate [ From Monitor] Respiratory 27 H 26 H 17 Rate Respiratory Rate [Bilateral Throughout] Respiratory Rate [ Generalized] Blood Pressure 124/62 124/62 120/84 O2 Sat by Pulse 100 100 100 Oximetry O2 Sat by Pulse Oximetry [ Assessment] 01/08/17 01/08/17 01/08/17 23:06 23:11 23:21 Temperature Pulse Rate 150 H 135 H 142 H Pulse Rate [ Bilateral Throughout] Pulse Rate [ From Monitor] Respiratory 19 16 19 Rate Respiratory Rate [Bilateral Throughout] Respiratory Rate [ Generalized] Blood Pressure 120/84 120/84 120/84 O2 Sat by Pulse 99 100 97 Oximetry O2 Sat by Pulse Oximetry [ Assessment] 01/08/17 01/08/17 01/08/17 23:22 23:29 23:30 Temperature 98.8 F Pulse Rate 133 H 134 H 139 H Pulse Rate [ Bilateral Throughout] Pulse Rate [ From Monitor] Respiratory 20 22 Rate Respiratory Rate [Bilateral Throughout] Respiratory Rate [ Generalized] Blood Pressure 120/84 120/84 119/84 O2 Sat by Pulse 97 96 96 Oximetry O2 Sat by Pulse Oximetry [ Assessment] 01/08/17 01/08/17 01/09/17 23:39 23:45 00:00 Temperature 99.2 F Pulse Rate 139 H 143 H Pulse Rate [ Bilateral Throughout] Pulse Rate [ 138 H From Monitor] Respiratory 27 H 17 Rate Respiratory Rate [Bilateral Throughout] Respiratory Rate [ Generalized] Blood Pressure 119/84 125/74 O2 Sat by Pulse 95 100 Oximetry O2 Sat by Pulse Oximetry [ Assessment] 01/09/17 01/09/17 01/09/17 00:15 00:30 00:45 Temperature Pulse Rate 137 H 134 H 140 H Pulse Rate [ Bilateral Throughout] Pulse Rate [ From Monitor] Respiratory 23 24 23 Rate Respiratory Rate [Bilateral Throughout] Respiratory Rate [ Generalized] Blood Pressure 125/74 132/78 132/78 O2 Sat by Pulse 98 99 98 Oximetry O2 Sat by Pulse Oximetry [ Assessment] 01/09/17 01/09/17 01/09/17 01:00 01:15 01:30 Temperature Pulse Rate 138 H 138 H 130 H Pulse Rate [ Bilateral Throughout] Pulse Rate [ From Monitor] Respiratory 31 H 22 22 Rate Respiratory Rate [Bilateral Throughout] Respiratory Rate [ Generalized] Blood Pressure 124/77 124/77 129/69 O2 Sat by Pulse 96 99 95 Oximetry O2 Sat by Pulse Oximetry [ Assessment] 01/09/17 01/09/17 01/09/17 01:45 02:00 02:15 Temperature Pulse Rate 137 H 138 H 111 H Pulse Rate [ 142 H Bilateral Throughout] Pulse Rate [ From Monitor] Respiratory 18 18 22 Rate Respiratory 14 Rate [Bilateral Throughout] Respiratory Rate [ Generalized] Blood Pressure 129/69 129/69 122/73 O2 Sat by Pulse 96 96 99 Oximetry O2 Sat by Pulse Oximetry [ Assessment] 01/09/17 01/09/17 01/09/17 02:30 02:45 03:00 Temperature Pulse Rate 114 H 112 H 113 H Pulse Rate [ Bilateral Throughout] Pulse Rate [ From Monitor] Respiratory 22 21 24 Rate Respiratory Rate [Bilateral Throughout] Respiratory Rate [ Generalized] Blood Pressure 124/82 124/82 133/78 O2 Sat by Pulse 99 99 99 Oximetry O2 Sat by Pulse 99 Oximetry [ Assessment] 01/09/17 01/09/17 01/09/17 03:15 03:30 03:40 Temperature Pulse Rate 106 H 110 H 109 H Pulse Rate [ Bilateral Throughout] Pulse Rate [ From Monitor] Respiratory 25 H 28 H Rate Respiratory Rate [Bilateral Throughout] Respiratory Rate [ Generalized] Blood Pressure 133/78 137/76 137/76 O2 Sat by Pulse 99 96 Oximetry O2 Sat by Pulse Oximetry [ Assessment] 01/09/17 01/09/17 01/09/17 03:45 03:49 04:00 Temperature 98.8 F Pulse Rate 111 H 109 H Pulse Rate [ Bilateral Throughout] Pulse Rate [ 112 H From Monitor] Respiratory 35 H 19 Rate Respiratory Rate [Bilateral Throughout] Respiratory Rate [ Generalized] Blood Pressure 137/76 130/70 O2 Sat by Pulse 95 99 Oximetry O2 Sat by Pulse Oximetry [ Assessment] 01/09/17 01/09/17 01/09/17 04:10 04:15 04:30 Temperature Pulse Rate 106 H 106 H 99 H Pulse Rate [ Bilateral Throughout] Pulse Rate [ From Monitor] Respiratory 20 17 Rate Respiratory Rate [Bilateral Throughout] Respiratory Rate [ Generalized] Blood Pressure 130/70 130/70 124/66 O2 Sat by Pulse 96 96 96 Oximetry O2 Sat by Pulse Oximetry [ Assessment] 01/09/17 01/09/17 01/09/17 04:45 05:00 05:15 Temperature Pulse Rate 97 H 97 H 98 H Pulse Rate [ Bilateral Throughout] Pulse Rate [ From Monitor] Respiratory 17 20 17 Rate Respiratory Rate [Bilateral Throughout] Respiratory Rate [ Generalized] Blood Pressure 124/66 117/61 124/66 O2 Sat by Pulse 96 98 97 Oximetry O2 Sat by Pulse Oximetry [ Assessment] 01/09/17 01/09/17 01/09/17 05:30 05:45 06:00 Temperature Pulse Rate 98 H 98 H Pulse Rate [ Bilateral Throughout] Pulse Rate [ From Monitor] Respiratory 18 23 Rate Respiratory Rate [Bilateral Throughout] Respiratory Rate [ Generalized] Blood Pressure 122/64 117/61 134/78 O2 Sat by Pulse 96 97 99 Oximetry O2 Sat by Pulse Oximetry [ Assessment] 01/09/17 01/09/17 01/09/17 06:15 06:30 06:45 Temperature Pulse Rate 106 H 102 H 100 H Pulse Rate [ Bilateral Throughout] Pulse Rate [ From Monitor] Respiratory 19 17 22 Rate Respiratory Rate [Bilateral Throughout] Respiratory Rate [ Generalized] Blood Pressure 132/69 126/70 126/70 O2 Sat by Pulse 100 100 100 Oximetry O2 Sat by Pulse Oximetry [ Assessment] 01/09/17 01/09/17 01/09/17 07:00 07:15 07:30 Temperature Pulse Rate 99 H 103 H 101 H Pulse Rate [ Bilateral Throughout] Pulse Rate [ From Monitor] Respiratory 18 18 20 Rate Respiratory Rate [Bilateral Throughout] Respiratory Rate [ Generalized] Blood Pressure 134/78 134/78 141/79 O2 Sat by Pulse 100 100 Oximetry O2 Sat by Pulse 96 Oximetry [ Assessment] 01/09/17 01/09/17 01/09/17 07:45 08:00 08:36 Temperature 98.6 F Pulse Rate 103 H 96 H 88 Pulse Rate [ Bilateral Throughout] Pulse Rate [ From Monitor] Respiratory 26 H 19 Rate Respiratory Rate [Bilateral Throughout] Respiratory Rate [ Generalized] Blood Pressure 141/79 122/69 111/60 O2 Sat by Pulse 100 96 Oximetry O2 Sat by Pulse Oximetry [ Assessment] 01/09/17 01/09/17 08:46 08:52 Temperature Pulse Rate Pulse Rate [ 88 89 Bilateral Throughout] Pulse Rate [ From Monitor] Respiratory Rate Respiratory 20 20 Rate [Bilateral Throughout] Respiratory Rate [ Generalized] Blood Pressure O2 Sat by Pulse Oximetry O2 Sat by Pulse Oximetry [ Assessment] - Lab 01/08/17 05:00 01/09/17 04:40 Most recent lab results ABG pH 7.450 pH Units (7.350-7.450) 12/05/16 Unknown ABG pCO2 29.6 mm Hg 12/05/16 Unknown ABG pO2 75.2 mm Hg (80.0-90.0) L 12/05/16 Unknown ABG HCO3 20.1 mmol/L (20.0-26.0) 12/05/16 Unknown ABG O2 Saturation 96.8 % (95.0-99.0) 12/05/16 Unknown Calcium 10.1 mg/dL (8.4-10.2) 01/09/17 04:40 Phosphorus 2.80 mg/dL (2.5-4.5) 01/09/17 04:40 Magnesium 1.90 mg/dL (1.7-2.3) 01/08/17 05:00 Urine Creatinine 19.7 mg/dL (0.1-20.0) 11/12/16 10:18 Urine Sodium 36 mEq/L 09/16/16 19:19 Urine Total Protein 16 mg/dL (5-11.8) H 09/16/16 19:19
[2017-01-09] MEDS: PROTONIX FEEDTUBE SCH (10:13)
[2017-01-09] MEDS: ROBINUL PO SCH (10:13)
[2017-01-09] MEDS: HEPARIN SUB-Q SCH (10:14)
[2017-01-09] MEDS: NORVASC PO SCH (10:14)
[2017-01-09] MEDS: CORDARONE PO SCH (10:16)
[2017-01-09] MEDS: DAKIN'S HALF STRENGTH TP SCH (10:35)
--- NOTE | 2017-01-09 10:39 | Progress Note ---
Assessment and Plan Assessment: 1) Recurrent SIRS: unclear source, manifested by leukocytosis, tachycardia and elevated lactid acid. DDx-infected sacral decubiti, recurrent UTI, VAP ?? 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 3) History of Candidemia: -Blood cultures positive for Silvia albicans on 09/23 and 09/25 -Blood cultures negative on 09/30 -PICC line changed on 10/03 -Source ? gastric perf (PEG placed on 09/20) +/- TPN +/- central lines -TTE 10/07 no vegetations -PICC exchanged on 10/03 -fully treated with micafungin for 14 days last day 10/13 4) History CA-UTI s/p gutierrez exchanged 5) Diarrhea - ? etiology ? antibiotic-induced, not better. 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 from GI bleed 13) Recent abdominal wall abscess at surgical site-treated 14 ) Recent Enterococcal bacteremia from PICC line infection. -Blood cx + E faecailis on 11/22, repeat blood cx 11/25 negative, treated with vanco Plan: -obtain blood cx and resp cx -exchange gutierrez -wound consult - call ID for next dressing changes -monitor lactic acid -overall prognosis very poor Thank you Dr Hodges for your consultation, will follow up with you. Pauline Carias MD Infectious Diseases Specialist [facility] M [phone] O [phone] Subjective Date of service: 01/09/17 Principal diagnosis: Acute resp failure on MVS; S/P Acute CVA; Acute Encephalopathy; JUANITA Interval history: Interval history: ID re-consulted due to elevated lactic acid, increasing leukocytosis. No recent fever. Patient with prolonged complicated hospital course with multiple nosocomial infections. Last time seen by ID on 12/02/16. Since then, she developed worsening sacral dec stage IV s/p debridement 11/28 found Necrotic skin , SQ tissue, muscle and a portion of the coccyx were sharply excised with scissors. A small amount of oozing was controlled with the Bovie. The wound was irrigated. The final dimensions of the wound were 7 X 7 X 3.5 cm. No wound cx obtained. Started on meropenem yesterday. 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 +NGT with greenish secretion Neck: +trach in place; supple, no thyromegaly or lymphadenopathy Lungs: brit coarse BS CV: tachycardic Abdomen: Soft, non-tender, +old PEG site no drainage. +iliostomy. Right sided Surgical site x 2 with ostomy bag draining small amount yellowish secretion Extremities: +peripheral edema no extremity lymphadenopathy Skin: sacral area wounds not examined Psych: somnolent . Neuro: alert non verbal on the vent. Lines: new PICC left arm 11/29 - Constitutional Vitals: Vital Signs Temp Pulse Resp BP Pulse Ox 98.6 F 90 20 135/81 96 01/09/17 08:00 01/09/17 10:14 01/09/17 08:52 01/09/17 10:14 01/09/17 08:36 Temperature -Last 24 Hours Temperature 98.6 F Temperature 98.8 F Temperature 99.2 F Temperature 98.8 F Temperature 98.7 F Temperature 98.9 F Temperature 98.8 F Temperature 99.1 F Temperature 99.1 F Temperature 99.0 F Temperature 98.9 F Temperature 97.1 F Temperature 98.1 F Temperature 97.3 F Temperature 97.1 F Temperature 97.2 F Temperature 97.6 F Temperature 97.6 F Temperature 98.2 F - Labs CBC & Chem 7: 01/08/17 05:00 01/09/17 04:40 Labs: Abnormal lab results 12/29/16 01/08/17 01/08/17 Range/Units 14:00 10:37 10:37 Sodium (137-145) mmol/L BUN (7-17) mg/dL Creatinine (0.7-1.2) mg/dL Glucose (65-100) mg/dL POC Glucose (70-105) Lactic Acid (0.7-2.0) mmol/L C-Reactive Protein 24.40 H (0.00-1.30) mg/dL Crossmatch See Detail See Detail 01/08/17 01/08/17 01/08/17 Range/Units 10:37 11:33 15:15 Sodium (137-145) mmol/L BUN (7-17) mg/dL Creatinine (0.7-1.2) mg/dL Glucose (65-100) mg/dL POC Glucose 157 H (70-105) Lactic Acid 9.70 H* 9.10 H* (0.7-2.0) mmol/L C-Reactive Protein (0.00-1.30) mg/dL Crossmatch 01/08/17 01/08/17 01/09/17 Range/Units 17:19 23:12 04:40 Sodium 147 H (137-145) mmol/L BUN 82 H (7-17) mg/dL Creatinine 1.8 H (0.7-1.2) mg/dL Glucose 137 H (65-100) mg/dL POC Glucose 164 H 157 H (70-105) Lactic Acid (0.7-2.0) mmol/L C-Reactive Protein (0.00-1.30) mg/dL Crossmatch 01/09/17 Range/Units 05:42 Sodium (137-145) mmol/L BUN (7-17) mg/dL Creatinine (0.7-1.2) mg/dL Glucose (65-100) mg/dL POC Glucose 156 H (70-105) Lactic Acid (0.7-2.0) mmol/L C-Reactive Protein (0.00-1.30) mg/dL Crossmatch
--- NOTE | 2017-01-09 10:42 | Progress Note ---
Assessment and Plan Acute Hypoxemic Respiratory Failure (now with exacerbation and back on MVS) Hypertension (unable to receive p.o. meds) Atrial Fibrillation with RVR s/p tracheostomy Acute encephalopathy s/p CVA Oropharyngeal dysphagia Enterococcal bacteremia sepsis syndrome Sacral Decubitus Ulcer (s/p surgical debridement) Anemia Obesity JUANITA now on hemodialysis Enteric Fistula - continue tube feeds at 10mls/hr; continue reglan at 5mg IV q6h - back weaned off vasopressin - ordered CT of abdomen and pelvis to better evaluate RLQ drainage and leucocytosis - continue HD/UF per nephrology; with CXR picture and chest ultrasound i will recommend continued UF sessions at least 3 x weekly as tolerated - hold on thoracentesis for now (i will review lung windows on CT abdomen before deciding on thoracentesis - continue fentanyl patch for pain issues especially s/p debridement - continue wound care per WCT and RN's (s/p surgical debridement) - prn CRP & lactate levels if clinically indicated (Follow WBC also) - keep on with daily PSV trials and / or T-piece as tolerated (repeat trial each shift if failed earlier shift)(not tolerating today either) - continue TPN administration - continue scopolamine for secretion control - continue to wean FiO2 for sats > 94% - continue bronchodilators and pulmonary toilet - VAP bundle addressed - continue prn IV metorolol - continue metoprolol and amlodipine (hold for hypotension) - continue to follow electrolytes and correct as necessary - continue GI & VTE prophylaxis - Continue flu & pneumovax per protocol - ethics consult placed .....she remains critically ill on life sustaining interventions including MVS and at risk for further deterioration including ....30' CCT today without overlap ....care plan discussed at length during team rounds ...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 and this has intermittently been conveyed to family Subjective Date of service: 01/09/17 Principal diagnosis: Acute resp failure on MVS; S/P Acute CVA; Acute Encephalopathy; JUANITA Interval history: Patient is seen today for: Acute resp failure on MVS; S/P Acute CVA; Acute Encephalopathy; JUANITA Seen and examined at bedside; 24hour events reviewed; nursing and respiratory care staff consulted; no adverse overnight events reported to me; silvia remains critically ill and is not tolerating weaning well; tolerating low rate tube feeds so far; no emesis or overt aspiration; no obvious correlation between tube feeds and RLQ drainage Objective Vital Signs - 12hr 01/08/17 01/08/17 01/08/17 22:51 23:00 23:06 Temperature Pulse Rate 142 H 138 H 150 H Pulse Rate [ Bilateral Throughout] Pulse Rate [ From Monitor] Respiratory 26 H 17 19 Rate Respiratory Rate [Bilateral Throughout] Blood Pressure 124/62 120/84 120/84 O2 Sat by Pulse 100 100 99 Oximetry O2 Sat by Pulse Oximetry [ Assessment] 01/08/17 01/08/17 01/08/17 23:11 23:21 23:22 Temperature Pulse Rate 135 H 142 H 133 H Pulse Rate [ Bilateral Throughout] Pulse Rate [ From Monitor] Respiratory 16 19 20 Rate Respiratory Rate [Bilateral Throughout] Blood Pressure 120/84 120/84 120/84 O2 Sat by Pulse 100 97 97 Oximetry O2 Sat by Pulse Oximetry [ Assessment] 01/08/17 01/08/17 01/08/17 23:29 23:30 23:39 Temperature 98.8 F 99.2 F Pulse Rate 134 H 139 H Pulse Rate [ Bilateral Throughout] Pulse Rate [ From Monitor] Respiratory 22 Rate Respiratory Rate [Bilateral Throughout] Blood Pressure 120/84 119/84 O2 Sat by Pulse 96 96 Oximetry O2 Sat by Pulse Oximetry [ Assessment] 01/08/17 01/09/17 01/09/17 23:45 00:00 00:15 Temperature Pulse Rate 139 H 143 H 137 H Pulse Rate [ Bilateral Throughout] Pulse Rate [ 138 H From Monitor] Respiratory 27 H 17 23 Rate Respiratory Rate [Bilateral Throughout] Blood Pressure 119/84 125/74 125/74 O2 Sat by Pulse 95 100 98 Oximetry O2 Sat by Pulse Oximetry [ Assessment] 01/09/17 01/09/17 01/09/17 00:30 00:45 01:00 Temperature Pulse Rate 134 H 140 H 138 H Pulse Rate [ Bilateral Throughout] Pulse Rate [ From Monitor] Respiratory 24 23 31 H Rate Respiratory Rate [Bilateral Throughout] Blood Pressure 132/78 132/78 124/77 O2 Sat by Pulse 99 98 96 Oximetry O2 Sat by Pulse Oximetry [ Assessment] 01/09/17 01/09/17 01/09/17 01:15 01:30 01:45 Temperature Pulse Rate 138 H 130 H 137 H Pulse Rate [ Bilateral Throughout] Pulse Rate [ From Monitor] Respiratory 22 22 18 Rate Respiratory Rate [Bilateral Throughout] Blood Pressure 124/77 129/69 129/69 O2 Sat by Pulse 99 95 96 Oximetry O2 Sat by Pulse Oximetry [ Assessment] 01/09/17 01/09/17 01/09/17 02:00 02:15 02:30 Temperature Pulse Rate 138 H 111 H 114 H Pulse Rate [ 142 H Bilateral Throughout] Pulse Rate [ From Monitor] Respiratory 18 22 22 Rate Respiratory 14 Rate [Bilateral Throughout] Blood Pressure 129/69 122/73 124/82 O2 Sat by Pulse 96 99 99 Oximetry O2 Sat by Pulse Oximetry [ Assessment] 01/09/17 01/09/17 01/09/17 02:45 03:00 03:15 Temperature Pulse Rate 112 H 113 H 106 H Pulse Rate [ Bilateral Throughout] Pulse Rate [ From Monitor] Respiratory 21 24 25 H Rate Respiratory Rate [Bilateral Throughout] Blood Pressure 124/82 133/78 133/78 O2 Sat by Pulse 99 99 99 Oximetry O2 Sat by Pulse 99 Oximetry [ Assessment] 01/09/17 01/09/17 01/09/17 03:30 03:40 03:45 Temperature Pulse Rate 110 H 109 H 111 H Pulse Rate [ Bilateral Throughout] Pulse Rate [ From Monitor] Respiratory 28 H 35 H Rate Respiratory Rate [Bilateral Throughout] Blood Pressure 137/76 137/76 137/76 O2 Sat by Pulse 96 95 Oximetry O2 Sat by Pulse Oximetry [ Assessment] 01/09/17 01/09/17 01/09/17 03:49 04:00 04:10 Temperature 98.8 F Pulse Rate 109 H 106 H Pulse Rate [ Bilateral Throughout] Pulse Rate [ 112 H From Monitor] Respiratory 19 Rate Respiratory Rate [Bilateral Throughout] Blood Pressure 130/70 130/70 O2 Sat by Pulse 99 96 Oximetry O2 Sat by Pulse Oximetry [ Assessment] 01/09/17 01/09/17 01/09/17 04:15 04:30 04:45 Temperature Pulse Rate 106 H 99 H 97 H Pulse Rate [ Bilateral Throughout] Pulse Rate [ From Monitor] Respiratory 20 17 17 Rate Respiratory Rate [Bilateral Throughout] Blood Pressure 130/70 124/66 124/66 O2 Sat by Pulse 96 96 96 Oximetry O2 Sat by Pulse Oximetry [ Assessment] 01/09/17 01/09/17 01/09/17 05:00 05:15 05:30 Temperature Pulse Rate 97 H 98 H 98 H Pulse Rate [ Bilateral Throughout] Pulse Rate [ From Monitor] Respiratory 20 17 18 Rate Respiratory Rate [Bilateral Throughout] Blood Pressure 117/61 124/66 122/64 O2 Sat by Pulse 98 97 96 Oximetry O2 Sat by Pulse Oximetry [ Assessment] 01/09/17 01/09/17 01/09/17 05:45 06:00 06:15 Temperature Pulse Rate 98 H 106 H Pulse Rate [ Bilateral Throughout] Pulse Rate [ From Monitor] Respiratory 23 19 Rate Respiratory Rate [Bilateral Throughout] Blood Pressure 117/61 134/78 132/69 O2 Sat by Pulse 97 99 100 Oximetry O2 Sat by Pulse Oximetry [ Assessment] 01/09/17 01/09/17 01/09/17 06:30 06:45 07:00 Temperature Pulse Rate 102 H 100 H 99 H Pulse Rate [ Bilateral Throughout] Pulse Rate [ From Monitor] Respiratory 17 22 18 Rate Respiratory Rate [Bilateral Throughout] Blood Pressure 126/70 126/70 134/78 O2 Sat by Pulse 100 100 100 Oximetry O2 Sat by Pulse Oximetry [ Assessment] 01/09/17 01/09/17 01/09/17 07:15 07:30 07:45 Temperature Pulse Rate 103 H 101 H 103 H Pulse Rate [ Bilateral Throughout] Pulse Rate [ From Monitor] Respiratory 18 20 26 H Rate Respiratory Rate [Bilateral Throughout] Blood Pressure 134/78 141/79 141/79 O2 Sat by Pulse 100 Oximetry O2 Sat by Pulse 96 Oximetry [ Assessment] 01/09/17 01/09/17 01/09/17 08:00 08:15 08:30 Temperature 98.6 F Pulse Rate 96 H 92 H 91 H Pulse Rate [ Bilateral Throughout] Pulse Rate [ From Monitor] Respiratory 19 22 23 Rate Respiratory Rate [Bilateral Throughout] Blood Pressure 122/69 122/69 O2 Sat by Pulse 100 Oximetry O2 Sat by Pulse Oximetry [ Assessment] 01/09/17 01/09/17 01/09/17 08:36 08:46 08:52 Temperature Pulse Rate 88 89 Pulse Rate [ 88 89 Bilateral Throughout] Pulse Rate [ From Monitor] Respiratory 21 Rate Respiratory 20 20 Rate [Bilateral Throughout] Blood Pressure 111/60 122/69 O2 Sat by Pulse 96 Oximetry O2 Sat by Pulse Oximetry [ Assessment] 01/09/17 01/09/17 01/09/17 09:00 09:16 09:30 Temperature Pulse Rate 88 89 89 Pulse Rate [ Bilateral Throughout] Pulse Rate [ From Monitor] Respiratory 17 19 22 Rate Respiratory Rate [Bilateral Throughout] Blood Pressure 137/75 137/75 140/80 O2 Sat by Pulse Oximetry O2 Sat by Pulse Oximetry [ Assessment] 01/09/17 01/09/17 01/09/17 09:46 10:00 10:14 Temperature Pulse Rate 87 87 90 Pulse Rate [ Bilateral Throughout] Pulse Rate [ From Monitor] Respiratory 16 18 Rate Respiratory Rate [Bilateral Throughout] Blood Pressure 140/80 135/81 135/81 O2 Sat by Pulse Oximetry O2 Sat by Pulse Oximetry [ Assessment] 01/09/17 01/09/17 10:16 10:30 Temperature Pulse Rate 89 88 Pulse Rate [ Bilateral Throughout] Pulse Rate [ From Monitor] Respiratory 17 19 Rate Respiratory Rate [Bilateral Throughout] Blood Pressure 135/81 124/72 O2 Sat by Pulse Oximetry O2 Sat by Pulse Oximetry [ Assessment] Constitutional: appears uncomfortable, other (not tracking) Eyes: non-icteric, other (tracheostomy tube in midline of neck) ENT: oropharynx moist, oropharyngeal exudate pre Neck: supple, no lymphadenopathy, no JVD, other (no thyromegaly) Effort: mildly labored Ascultation: Bilateral: diminished breath sounds (bases), rhonchi (and referred upper airway sounds) Percussion: Bilateral: dull (bases) Cardiovascular: regular rate and rhythm, other (no rubs / murmurs) Gastrointestinal: hypoactive bowel sounds, soft, non-tender, non-distended, other (RLQ & LUQ stomas with colostomy bags) Integumentary: decubitus ulcer (sacral; stage 4 s/p surgical debridement), other (no rash; no cellulitis; poor turgor) Extremities: no cyanosis, pulses normal, no ischemia or petechiae, edema (1+ bilaterally) Neurologic: pupils equal and round, unable to assess, other (encephalopathic) Psychiatric: other (unable to assess) CBC and BMP: 01/12/17 04:30 01/12/17 04:30 ABG, PT/INR, D-dimer: ABG POC ABG pH 7.503 (7.35-7.45) H 12/19/16 09:36 ABG pH 7.450 pH Units (7.350-7.450) 12/05/16 Unknown POC ABG pCO2 30.1 (35-45) L 12/19/16 09:36 ABG pCO2 29.6 mm Hg 12/05/16 Unknown POC ABG pO2 85 (80-105) 12/19/16 09:36 ABG pO2 75.2 mm Hg (80.0-90.0) L 12/05/16 Unknown POC ABG HCO3 23.6 12/19/16 09:36 POC ABG Total CO2 25 12/19/16 09:36 POC ABG O2 Sat 97 12/19/16 09:36 ABG O2 Saturation 96.8 % (95.0-99.0) 12/05/16 Unknown PT/INR, D-dimer PT 16.1 Sec. (12.2-14.9) H 12/28/16 08:30 INR 1.23 (0.87-1.13) H 12/28/16 08:30 Abnormal lab findings: Abnormal Labs 09/03/16 09/03/16 09/03/16 00:03 00:10 00:10 WBC 13.9 H RBC 5.95 H Hgb Hct 44.0 H MCV 74 L MCH 22 L MCHC RDW 17.5 H Plt Count Lymph % (Auto) [place] % (Auto) Lymph # [place] # Baso # Seg Neutrophils % Seg Neuts % (Manual) Lymphocytes % (Manual) 54.0 H Monocytes % (Manual) Eosinophils % (Manual) Basophils % (Manual) Nucleated RBC % Seg Neutrophils # Seg Neutrophils # Man Lymphocytes # (Manual) 7.5 H Monocytes # (Manual) Eosinophils # (Manual) Basophils # (Manual) PT INR Fibrinogen dRVVT Confirm Interp Factor V Activity POC ABG pH POC ABG pCO2 POC ABG pO2 ABG pO2 ABG HCO3 ABG Base Excess ABG Hemoglobin Oxyhemoglobin Sodium Potassium 2.8 L* Chloride Carbon Dioxide 21 L BUN Creatinine 1.7 H Glucose 159 H POC Glucose 177 H Lactic Acid Calcium Phosphorus Magnesium Direct Bilirubin AST ALT Alkaline Phosphatase Lactate Dehydrogenase Troponin T C-Reactive Protein Total Protein Albumin Prealbumin Triglycerides Cholesterol LDL Cholesterol Direct HDL Cholesterol Urine pH Urine WBC (Auto) Urine Creatinine Urine Total Protein Fluid Total Protein Vancomycin Trough Rheumatoid Factor Complement C4 Miscellaneous Test Crossmatch 09/03/16 09/03/16 09/03/16 12:12 15:07 16:20 WBC RBC Hgb Hct MCV MCH MCHC RDW Plt Count Lymph % (Auto) [place] % (Auto) Lymph # [place] # Baso # Seg Neutrophils % Seg Neuts % (Manual) Lymphocytes % (Manual) Monocytes % (Manual) Eosinophils % (Manual) Basophils % (Manual) Nucleated RBC % Seg Neutrophils # Seg Neutrophils # Man Lymphocytes # (Manual) Monocytes # (Manual) Eosinophils # (Manual) Basophils # (Manual) PT INR Fibrinogen dRVVT Confirm Interp Factor V Activity POC ABG pH 7.452 H POC ABG pCO2 POC ABG pO2 ABG pO2 ABG HCO3 ABG Base Excess ABG Hemoglobin Oxyhemoglobin Sodium Potassium Chloride Carbon Dioxide BUN Creatinine Glucose POC Glucose 178 H Lactic Acid Calcium Phosphorus 2.20 L Magnesium 1.60 L Direct Bilirubin AST ALT Alkaline Phosphatase Lactate Dehydrogenase Troponin T C-Reactive Protein Total Protein Albumin Prealbumin Triglycerides Cholesterol LDL Cholesterol Direct HDL Cholesterol Urine pH Urine WBC (Auto) Urine Creatinine Urine Total Protein Fluid Total Protein Vancomycin Trough Rheumatoid Factor Complement C4 Miscellaneous Test Crossmatch 09/03/16 09/03/16 09/03/16 17:57 17:58 23:50 WBC RBC Hgb Hct MCV MCH MCHC RDW Plt Count Lymph % (Auto) [place] % (Auto) Lymph # [place] # Baso # Seg Neutrophils % Seg Neuts % (Manual) Lymphocytes % (Manual) Monocytes % (Manual) Eosinophils % (Manual) Basophils % (Manual) Nucleated RBC % Seg Neutrophils # Seg Neutrophils # Man Lymphocytes # (Manual) Monocytes # (Manual) Eosinophils # (Manual) Basophils # (Manual) PT INR Fibrinogen dRVVT Confirm Interp Factor V Activity POC ABG pH POC ABG pCO2 POC ABG pO2 ABG pO2 ABG HCO3 ABG Base Excess ABG Hemoglobin Oxyhemoglobin Sodium Potassium Chloride Carbon Dioxide BUN Creatinine Glucose POC Glucose 162 H 145 H Lactic Acid Calcium Phosphorus 2.30 L Magnesium Direct Bilirubin AST ALT Alkaline Phosphatase Lactate Dehydrogenase Troponin T C-Reactive Protein Total Protein Albumin Prealbumin Triglycerides Cholesterol LDL Cholesterol Direct HDL Cholesterol Urine pH Urine WBC (Auto) Urine Creatinine Urine Total Protein Fluid Total Protein Vancomycin Trough Rheumatoid Factor Complement C4 Miscellaneous Test Crossmatch 09/04/16 09/04/16 09/04/16 03:31 03:31 05:42 WBC RBC Hgb 9.7 L D Hct MCV 72 L MCH 23 L MCHC RDW 17.5 H Plt Count Lymph % (Auto) 11.[address] [place] % (Auto) Lymph # [place] # Baso # Seg Neutrophils % 84.3 H Seg Neuts % (Manual) Lymphocytes % (Manual) Monocytes % (Manual) Eosinophils % (Manual) Basophils % (Manual) Nucleated RBC % Seg Neutrophils # 8.9 H Seg Neutrophils # Man Lymphocytes # (Manual) Monocytes # (Manual) Eosinophils # (Manual) Basophils # (Manual) PT INR Fibrinogen dRVVT Confirm Interp Factor V Activity POC ABG pH POC ABG pCO2 POC ABG pO2 ABG pO2 ABG HCO3 ABG Base Excess ABG Hemoglobin Oxyhemoglobin Sodium 135 L Potassium 2.9 L* Chloride 97.2 L Carbon Dioxide 19 L BUN Creatinine 1.7 H Glucose 170 H POC Glucose 152 H Lactic Acid Calcium Phosphorus Magnesium Direct Bilirubin AST ALT Alkaline Phosphatase Lactate Dehydrogenase Troponin T C-Reactive Protein Total Protein Albumin Prealbumin Triglycerides 160 H Cholesterol LDL Cholesterol Direct HDL Cholesterol 31 L Urine pH Urine WBC (Auto) Urine Creatinine Urine Total Protein Fluid Total Protein Vancomycin Trough Rheumatoid Factor Complement C4 Miscellaneous Test Crossmatch 09/04/16 09/04/16 09/04/16 11:34 17:46 23:29 WBC RBC Hgb Hct MCV MCH MCHC RDW Plt Count Lymph % (Auto) [place] % (Auto) Lymph # [place] # Baso # Seg Neutrophils % Seg Neuts % (Manual) Lymphocytes % (Manual) Monocytes % (Manual) Eosinophils % (Manual) Basophils % (Manual) Nucleated RBC % Seg Neutrophils # Seg Neutrophils # Man Lymphocytes # (Manual) Monocytes # (Manual) Eosinophils # (Manual) Basophils # (Manual) PT INR Fibrinogen dRVVT Confirm Interp Factor V Activity POC ABG pH POC ABG pCO2 POC ABG pO2 ABG pO2 ABG HCO3 ABG Base Excess ABG Hemoglobin Oxyhemoglobin Sodium Potassium Chloride Carbon Dioxide BUN Creatinine Glucose POC Glucose 165 H 210 H 139 H Lactic Acid Calcium Phosphorus Magnesium Direct Bilirubin AST ALT Alkaline Phosphatase Lactate Dehydrogenase Troponin T C-Reactive Protein Total Protein Albumin Prealbumin Triglycerides Cholesterol LDL Cholesterol Direct HDL Cholesterol Urine pH Urine WBC (Auto) Urine Creatinine Urine Total Protein Fluid Total Protein Vancomycin Trough Rheumatoid Factor Complement C4 Miscellaneous Test Crossmatch 09/05/16 09/05/16 09/05/16 04:05 04:05 05:38 WBC RBC Hgb Hct MCV 76 L D MCH 23 L MCHC RDW 17.8 H Plt Count Lymph % (Auto) [place] % (Auto) Lymph # [place] # Baso # Seg Neutrophils % Seg Neuts % (Manual) Lymphocytes % (Manual) Monocytes % (Manual) Eosinophils % (Manual) Basophils % (Manual) Nucleated RBC % Seg Neutrophils # Seg Neutrophils # Man Lymphocytes # (Manual) Monocytes # (Manual) Eosinophils # (Manual) Basophils # (Manual) PT INR Fibrinogen dRVVT Confirm Interp Factor V Activity POC ABG pH POC ABG pCO2 POC ABG pO2 ABG pO2 ABG HCO3 ABG Base Excess ABG Hemoglobin Oxyhemoglobin Sodium 134 L Potassium Chloride Carbon Dioxide 18 L BUN Creatinine 1.8 H Glucose 192 H POC Glucose 175 H Lactic Acid Calcium Phosphorus Magnesium Direct Bilirubin AST ALT Alkaline Phosphatase Lactate Dehydrogenase Troponin T C-Reactive Protein Total Protein Albumin Prealbumin Triglycerides Cholesterol LDL Cholesterol Direct HDL Cholesterol Urine pH Urine WBC (Auto) Urine Creatinine Urine Total Protein Fluid Total Protein Vancomycin Trough Rheumatoid Factor Complement C4 Miscellaneous Test Crossmatch 09/05/16 09/05/16 09/05/16 11:38 17:48 23:22 WBC RBC Hgb Hct MCV MCH MCHC RDW Plt Count Lymph % (Auto) [place] % (Auto) Lymph # [place] # Baso # Seg Neutrophils % Seg Neuts % (Manual) Lymphocytes % (Manual) Monocytes % (Manual) Eosinophils % (Manual) Basophils % (Manual) Nucleated RBC % Seg Neutrophils # Seg Neutrophils # Man Lymphocytes # (Manual) Monocytes # (Manual) Eosinophils # (Manual) Basophils # (Manual) PT INR Fibrinogen dRVVT Confirm Interp Factor V Activity POC ABG pH POC ABG pCO2 POC ABG pO2 ABG pO2 ABG HCO3 ABG Base Excess ABG Hemoglobin Oxyhemoglobin Sodium Potassium Chloride Carbon Dioxide BUN Creatinine Glucose POC Glucose 164 H 186 H 195 H Lactic Acid Calcium Phosphorus Magnesium Direct Bilirubin AST ALT Alkaline Phosphatase Lactate Dehydrogenase Troponin T C-Reactive Protein Total Protein Albumin Prealbumin Triglycerides Cholesterol LDL Cholesterol Direct HDL Cholesterol Urine pH Urine WBC (Auto) Urine Creatinine Urine Total Protein Fluid Total Protein Vancomycin Trough Rheumatoid Factor Complement C4 Miscellaneous Test Crossmatch 09/06/16 09/06/16 09/06/16 04:12 05:59 07:32 WBC RBC Hgb Hct MCV MCH MCHC RDW Plt Count Lymph % (Auto) [place] % (Auto) Lymph # [place] # Baso # Seg Neutrophils % Seg Neuts % (Manual) Lymphocytes % (Manual) Monocytes % (Manual) Eosinophils % (Manual) Basophils % (Manual) Nucleated RBC % Seg Neutrophils # Seg Neutrophils # Man Lymphocytes # (Manual) Monocytes # (Manual) Eosinophils # (Manual) Basophils # (Manual) PT INR Fibrinogen dRVVT Confirm Interp Factor V Activity POC ABG pH 7.514 H POC ABG pCO2 29.1 L POC ABG pO2 72 L ABG pO2 ABG HCO3 ABG Base Excess ABG Hemoglobin Oxyhemoglobin Sodium 133 L Potassium 3.4 L Chloride 94.9 L Carbon Dioxide 19 L BUN 30 H Creatinine 2.1 H Glucose 139 H POC Glucose 146 H Lactic Acid Calcium Phosphorus Magnesium Direct Bilirubin AST ALT Alkaline Phosphatase Lactate Dehydrogenase Troponin T C-Reactive Protein Total Protein Albumin Prealbumin Triglycerides Cholesterol LDL Cholesterol Direct HDL Cholesterol Urine pH Urine WBC (Auto) Urine Creatinine Urine Total Protein Fluid Total Protein Vancomycin Trough Rheumatoid Factor Complement C4 Miscellaneous Test Crossmatch 09/06/16 09/06/16 09/06/16 11:57 17:58 19:02 WBC RBC Hgb Hct MCV MCH MCHC RDW Plt Count Lymph % (Auto) [place] % (Auto) Lymph # [place] # Baso # Seg Neutrophils % Seg Neuts % (Manual) Lymphocytes % (Manual) Monocytes % (Manual) Eosinophils % (Manual) Basophils % (Manual) Nucleated RBC % Seg Neutrophils # Seg Neutrophils # Man Lymphocytes # (Manual) Monocytes # (Manual) Eosinophils # (Manual) Basophils # (Manual) PT INR Fibrinogen dRVVT Confirm Interp Factor V Activity POC ABG pH 7.465 H POC ABG pCO2 32.0 L POC ABG pO2 ABG pO2 ABG HCO3 ABG Base Excess ABG Hemoglobin Oxyhemoglobin Sodium Potassium Chloride Carbon Dioxide BUN Creatinine Glucose POC Glucose 165 H 160 H Lactic Acid Calcium Phosphorus Magnesium Direct Bilirubin AST ALT Alkaline Phosphatase Lactate Dehydrogenase Troponin T C-Reactive Protein Total Protein Albumin Prealbumin Triglycerides Cholesterol LDL Cholesterol Direct HDL Cholesterol Urine pH Urine WBC (Auto) Urine Creatinine Urine Total Protein Fluid Total Protein Vancomycin Trough Rheumatoid Factor Complement C4 Miscellaneous Test Crossmatch 09/06/16 09/07/16 09/07/16 23:45 02:47 02:47 WBC RBC Hgb Hct MCV MCH MCHC RDW Plt Count Lymph % (Auto) [place] % (Auto) Lymph # [place] # Baso # Seg Neutrophils % Seg Neuts % (Manual) Lymphocytes % (Manual) Monocytes % (Manual) Eosinophils % (Manual) Basophils % (Manual) Nucleated RBC % Seg Neutrophils # Seg Neutrophils # Man Lymphocytes # (Manual) Monocytes # (Manual) Eosinophils # (Manual) Basophils # (Manual) PT INR Fibrinogen dRVVT Confirm Interp Factor V Activity POC ABG pH POC ABG pCO2 POC ABG pO2 ABG pO2 ABG HCO3 ABG Base Excess ABG Hemoglobin Oxyhemoglobin Sodium Potassium Chloride Carbon Dioxide BUN Creatinine Glucose POC Glucose 204 H Lactic Acid Calcium Phosphorus Magnesium Direct Bilirubin AST ALT Alkaline Phosphatase Lactate Dehydrogenase Troponin T C-Reactive Protein Total Protein Albumin Prealbumin Triglycerides Cholesterol LDL Cholesterol Direct HDL Cholesterol Urine pH Urine WBC (Auto) 68.0 H Urine Creatinine 106.1 H Urine Total Protein Fluid Total Protein Vancomycin Trough Rheumatoid Factor Complement C4 Miscellaneous Test Crossmatch 09/07/16 09/07/16 09/07/16 04:50 06:19 06:39 WBC RBC Hgb Hct MCV MCH MCHC RDW Plt Count Lymph % (Auto) [place] % (Auto) Lymph # [place] # Baso # Seg Neutrophils % Seg Neuts % (Manual) Lymphocytes % (Manual) Monocytes % (Manual) Eosinophils % (Manual) Basophils % (Manual) Nucleated RBC % Seg Neutrophils # Seg Neutrophils # Man Lymphocytes # (Manual) Monocytes # (Manual) Eosinophils # (Manual) Basophils # (Manual) PT INR Fibrinogen dRVVT Confirm Interp Factor V Activity POC ABG pH 7.457 H POC ABG pCO2 32.1 L POC ABG pO2 76 L ABG pO2 ABG HCO3 ABG Base Excess ABG Hemoglobin Oxyhemoglobin Sodium 132 L Potassium Chloride 94.7 L Carbon Dioxide BUN 53 H Creatinine 2.9 H Glucose 151 H POC Glucose 149 H Lactic Acid Calcium Phosphorus Magnesium Direct Bilirubin AST ALT Alkaline Phosphatase Lactate Dehydrogenase Troponin T C-Reactive Protein Total Protein Albumin Prealbumin Triglycerides Cholesterol LDL Cholesterol Direct HDL Cholesterol Urine pH Urine WBC (Auto) Urine Creatinine Urine Total Protein Fluid Total Protein Vancomycin Trough Rheumatoid Factor Complement C4 Miscellaneous Test Crossmatch 09/07/16 09/07/16 09/07/16 09:20 11:43 11:43 WBC 19.4 H RBC Hgb 8.3 L Hct 26.4 L D MCV 72 L D MCH 22 L MCHC RDW 17.9 H Plt Count Lymph % (Auto) 8.[address] [place] % (Auto) Lymph # [place] # 1.0 H Baso # Seg Neutrophils % 85.8 H Seg Neuts % (Manual) Lymphocytes % (Manual) Monocytes % (Manual) Eosinophils % (Manual) Basophils % (Manual) Nucleated RBC % Seg Neutrophils # 16.6 H Seg Neutrophils # Man Lymphocytes # (Manual) Monocytes # (Manual) Eosinophils # (Manual) Basophils # (Manual) PT INR Fibrinogen dRVVT Confirm Interp Factor V Activity POC ABG pH POC ABG pCO2 POC ABG pO2 ABG pO2 ABG HCO3 ABG Base Excess ABG Hemoglobin Oxyhemoglobin Sodium 134 L Potassium Chloride 97.2 L Carbon Dioxide 20 L BUN 58 H Creatinine 2.9 H Glucose 147 H POC Glucose Lactic Acid Calcium Phosphorus 2.40 L Magnesium 2.40 H Direct Bilirubin AST ALT Alkaline Phosphatase Lactate Dehydrogenase Troponin T C-Reactive Protein Total Protein 5.8 L Albumin 2.2 L Prealbumin Triglycerides Cholesterol LDL Cholesterol Direct HDL Cholesterol Urine pH Urine WBC (Auto) Urine Creatinine Urine Total Protein Fluid Total Protein Vancomycin Trough Rheumatoid Factor Complement C4 58 H Miscellaneous Test Crossmatch 09/07/16 09/07/16 09/07/16 11:50 16:00 17:31 WBC RBC Hgb Hct MCV MCH MCHC RDW Plt Count Lymph % (Auto) [place] % (Auto) Lymph # [place] # Baso # Seg Neutrophils % Seg Neuts % (Manual) Lymphocytes % (Manual) Monocytes % (Manual) Eosinophils % (Manual) Basophils % (Manual) Nucleated RBC % Seg Neutrophils # Seg Neutrophils # Man Lymphocytes # (Manual) Monocytes # (Manual) Eosinophils # (Manual) Basophils # (Manual) PT INR Fibrinogen dRVVT Confirm Interp Factor V Activity POC ABG pH POC ABG pCO2 POC ABG pO2 158 H ABG pO2 ABG HCO3 ABG Base Excess ABG Hemoglobin Oxyhemoglobin Sodium Potassium Chloride Carbon Dioxide BUN Creatinine Glucose POC Glucose 175 H Lactic Acid Calcium Phosphorus Magnesium Direct Bilirubin AST ALT Alkaline Phosphatase Lactate Dehydrogenase Troponin T C-Reactive Protein Total Protein Albumin Prealbumin Triglycerides Cholesterol LDL Cholesterol Direct HDL Cholesterol Urine pH Urine WBC (Auto) Urine Creatinine 66.3 H Urine Total Protein Fluid Total Protein Vancomycin Trough Rheumatoid Factor Complement C4 Miscellaneous Test Crossmatch 09/07/16 09/08/16 09/08/16 23:50 05:46 06:18 WBC 17.8 H RBC 3.58 L Hgb 8.1 L Hct 25.5 L MCV 71 L MCH 23 L MCHC RDW 18.4 H Plt Count Lymph % (Auto) [place] % (Auto) Lymph # [place] # Baso # Seg Neutrophils % Seg Neuts % (Manual) 92.0 H Lymphocytes % (Manual) 6.0 L Monocytes % (Manual) Eosinophils % (Manual) Basophils % (Manual) Nucleated RBC % Seg Neutrophils # Seg Neutrophils # Man 16.4 H Lymphocytes # (Manual) 1.1 L Monocytes # (Manual) Eosinophils # (Manual) Basophils # (Manual) PT INR Fibrinogen dRVVT Confirm Interp Factor V Activity POC ABG pH POC ABG pCO2 34.3 L POC ABG pO2 71 L ABG pO2 ABG HCO3 ABG Base Excess ABG Hemoglobin Oxyhemoglobin Sodium Potassium Chloride Carbon Dioxide BUN Creatinine Glucose POC Glucose 216 H Lactic Acid Calcium Phosphorus Magnesium Direct Bilirubin AST ALT Alkaline Phosphatase Lactate Dehydrogenase Troponin T C-Reactive Protein Total Protein Albumin Prealbumin Triglycerides Cholesterol LDL Cholesterol Direct HDL Cholesterol Urine pH Urine WBC (Auto) Urine Creatinine Urine Total Protein Fluid Total Protein Vancomycin Trough Rheumatoid Factor Complement C4 Miscellaneous Test Crossmatch 09/08/16 09/08/16 09/08/16 06:18 06:51 10:55 WBC RBC Hgb Hct MCV MCH MCHC RDW Plt Count Lymph % (Auto) [place] % (Auto) Lymph # [place] # Baso # Seg Neutrophils % Seg Neuts % (Manual) Lymphocytes % (Manual) Monocytes % (Manual) Eosinophils % (Manual) Basophils % (Manual) Nucleated RBC % Seg Neutrophils # Seg Neutrophils # Man Lymphocytes # (Manual) Monocytes # (Manual) Eosinophils # (Manual) Basophils # (Manual) PT INR Fibrinogen dRVVT Confirm Interp Factor V Activity POC ABG pH POC ABG pCO2 POC ABG pO2 ABG pO2 ABG HCO3 ABG Base Excess ABG Hemoglobin Oxyhemoglobin Sodium 133 L Potassium Chloride 96.9 L Carbon Dioxide 20 L BUN 63 H Creatinine 2.7 H Glucose 195 H POC Glucose 204 H 169 H Lactic Acid Calcium Phosphorus Magnesium Direct Bilirubin AST ALT Alkaline Phosphatase Lactate Dehydrogenase Troponin T C-Reactive Protein Total Protein Albumin Prealbumin Triglycerides Cholesterol LDL Cholesterol Direct HDL Cholesterol Urine pH Urine WBC (Auto) Urine Creatinine Urine Total Protein Fluid Total Protein Vancomycin Trough Rheumatoid Factor Complement C4 Miscellaneous Test Crossmatch 09/08/16 09/08/16 09/08/16 11:48 11:48 11:48 WBC RBC Hgb Hct MCV MCH MCHC RDW Plt Count Lymph % (Auto) [place] % (Auto) Lymph # [place] # Baso # Seg Neutrophils % Seg Neuts % (Manual) Lymphocytes % (Manual) Monocytes % (Manual) Eosinophils % (Manual) Basophils % (Manual) Nucleated RBC % Seg Neutrophils # Seg Neutrophils # Man Lymphocytes # (Manual) Monocytes # (Manual) Eosinophils # (Manual) Basophils # (Manual) PT INR Fibrinogen 750 H dRVVT Confirm Interp Factor V Activity POC ABG pH POC ABG pCO2 POC ABG pO2 ABG pO2 ABG HCO3 ABG Base Excess ABG Hemoglobin Oxyhemoglobin Sodium Potassium Chloride Carbon Dioxide BUN Creatinine Glucose POC Glucose Lactic Acid Calcium Phosphorus Magnesium Direct Bilirubin AST ALT Alkaline Phosphatase Lactate Dehydrogenase Troponin T C-Reactive Protein 15.70 H Total Protein Albumin Prealbumin Triglycerides Cholesterol LDL Cholesterol Direct HDL Cholesterol Urine pH Urine WBC (Auto) Urine Creatinine Urine Total Protein Fluid Total Protein Vancomycin Trough Rheumatoid Factor 24 H Complement C4 Miscellaneous Test Crossmatch 09/08/16 09/08/16 09/09/16 15:35 18:25 00:24 WBC RBC Hgb Hct MCV MCH MCHC RDW Plt Count Lymph % (Auto) [place] % (Auto) Lymph # [place] # Baso # Seg Neutrophils % Seg Neuts % (Manual) Lymphocytes % (Manual) Monocytes % (Manual) Eosinophils % (Manual) Basophils % (Manual) Nucleated RBC % Seg Neutrophils # Seg Neutrophils # Man Lymphocytes # (Manual) Monocytes # (Manual) Eosinophils # (Manual) Basophils # (Manual) PT INR Fibrinogen dRVVT Confirm Interp Factor V Activity 182 H POC ABG pH POC ABG pCO2 POC ABG pO2 ABG pO2 ABG HCO3 ABG Base Excess ABG Hemoglobin Oxyhemoglobin Sodium Potassium Chloride Carbon Dioxide BUN Creatinine Glucose POC Glucose 184 H 216 H Lactic Acid Calcium Phosphorus Magnesium Direct Bilirubin AST ALT Alkaline Phosphatase Lactate Dehydrogenase Troponin T C-Reactive Protein Total Protein Albumin Prealbumin Triglycerides Cholesterol LDL Cholesterol Direct HDL Cholesterol Urine pH Urine WBC (Auto) Urine Creatinine Urine Total Protein Fluid Total Protein Vancomycin Trough Rheumatoid Factor Complement C4 Miscellaneous Test Crossmatch 09/09/16 09/09/16 09/09/16 03:00 03:00 04:04 WBC 27.9 H RBC Hgb 8.7 L Hct 28.1 L MCV 72 L MCH 22 L MCHC RDW 18.4 H Plt Count 485 H Lymph % (Auto) [place] % (Auto) Lymph # [place] # Baso # Seg Neutrophils % Seg Neuts % (Manual) 77.0 H Lymphocytes % (Manual) 9.0 L Monocytes % (Manual) Eosinophils % (Manual) Basophils % (Manual) Nucleated RBC % Seg Neutrophils # Seg Neutrophils # Man 21.5 H Lymphocytes # (Manual) Monocytes # (Manual) 2.0 H Eosinophils # (Manual) Basophils # (Manual) PT INR Fibrinogen dRVVT Confirm Interp Factor V Activity POC ABG pH POC ABG pCO2 POC ABG pO2 121 H ABG pO2 ABG HCO3 ABG Base Excess ABG Hemoglobin Oxyhemoglobin Sodium 135 L Potassium Chloride 96.3 L Carbon Dioxide 21 L BUN 83 H Creatinine 3.0 H Glucose 135 H POC Glucose Lactic Acid Calcium Phosphorus Magnesium Direct Bilirubin AST ALT Alkaline Phosphatase Lactate Dehydrogenase Troponin T C-Reactive Protein Total Protein Albumin Prealbumin Triglycerides Cholesterol LDL Cholesterol Direct HDL Cholesterol Urine pH Urine WBC (Auto) Urine Creatinine Urine Total Protein Fluid Total Protein Vancomycin Trough Rheumatoid Factor Complement C4 Miscellaneous Test Crossmatch 09/09/16 09/09/16 09/09/16 05:41 11:55 14:13 WBC RBC Hgb Hct MCV MCH MCHC RDW Plt Count Lymph % (Auto) [place] % (Auto) Lymph # [place] # Baso # Seg Neutrophils % Seg Neuts % (Manual) Lymphocytes % (Manual) Monocytes % (Manual) Eosinophils % (Manual) Basophils % (Manual) Nucleated RBC % Seg Neutrophils # Seg Neutrophils # Man Lymphocytes # (Manual) Monocytes # (Manual) Eosinophils # (Manual) Basophils # (Manual) PT INR Fibrinogen dRVVT Confirm Interp Factor V Activity POC ABG pH POC ABG pCO2 POC ABG pO2 ABG pO2 ABG HCO3 ABG Base Excess ABG Hemoglobin Oxyhemoglobin Sodium Potassium Chloride Carbon Dioxide BUN Creatinine Glucose POC Glucose 155 H 186 H Lactic Acid Calcium Phosphorus Magnesium Direct Bilirubin AST ALT Alkaline Phosphatase Lactate Dehydrogenase Troponin T C-Reactive Protein Total Protein Albumin Prealbumin Triglycerides Cholesterol LDL Cholesterol Direct HDL Cholesterol Urine pH Urine WBC (Auto) 25.0 H Urine Creatinine Urine Total Protein Fluid Total Protein Vancomycin Trough Rheumatoid Factor Complement C4 Miscellaneous Test Crossmatch 09/09/16 09/09/16 09/10/16 17:33 23:13 05:09 WBC RBC Hgb Hct MCV MCH MCHC RDW Plt Count Lymph % (Auto) [place] % (Auto) Lymph # [place] # Baso # Seg Neutrophils % Seg Neuts % (Manual) Lymphocytes % (Manual) Monocytes % (Manual) Eosinophils % (Manual) Basophils % (Manual) Nucleated RBC % Seg Neutrophils # Seg Neutrophils # Man Lymphocytes # (Manual) Monocytes # (Manual) Eosinophils # (Manual) Basophils # (Manual) PT INR Fibrinogen dRVVT Confirm Interp Factor V Activity POC ABG pH POC ABG pCO2 POC ABG pO2 74 L ABG pO2 ABG HCO3 ABG Base Excess ABG Hemoglobin Oxyhemoglobin Sodium Potassium Chloride Carbon Dioxide BUN Creatinine Glucose POC Glucose 211 H 215 H Lactic Acid Calcium Phosphorus Magnesium Direct Bilirubin AST ALT Alkaline Phosphatase Lactate Dehydrogenase Troponin T C-Reactive Protein Total Protein Albumin Prealbumin Triglycerides Cholesterol LDL Cholesterol Direct HDL Cholesterol Urine pH Urine WBC (Auto) Urine Creatinine Urine Total Protein Fluid Total Protein Vancomycin Trough Rheumatoid Factor Complement C4 Miscellaneous Test Crossmatch 09/10/16 09/10/16 09/10/16 05:17 05:17 11:31 WBC 15.8 H RBC 3.25 L Hgb 7.3 L Hct 22.9 L MCV 71 L MCH 23 L MCHC RDW 18.4 H Plt Count Lymph % (Auto) [place] % (Auto) Lymph # [place] # Baso # Seg Neutrophils % Seg Neuts % (Manual) 91.0 H Lymphocytes % (Manual) 4.0 L Monocytes % (Manual) Eosinophils % (Manual) Basophils % (Manual) Nucleated RBC % Seg Neutrophils # Seg Neutrophils # Man 14.4 H Lymphocytes # (Manual) 0.6 L Monocytes # (Manual) Eosinophils # (Manual) Basophils # (Manual) PT INR Fibrinogen dRVVT Confirm Interp Factor V Activity POC ABG pH POC ABG pCO2 POC ABG pO2 ABG pO2 ABG HCO3 ABG Base Excess ABG Hemoglobin Oxyhemoglobin Sodium Potassium Chloride Carbon Dioxide 21 L BUN 93 H Creatinine 2.9 H Glucose 146 H POC Glucose 188 H Lactic Acid Calcium 8.1 L Phosphorus Magnesium Direct Bilirubin AST ALT Alkaline Phosphatase Lactate Dehydrogenase Troponin T C-Reactive Protein Total Protein Albumin Prealbumin Triglycerides Cholesterol LDL Cholesterol Direct HDL Cholesterol Urine pH Urine WBC (Auto) Urine Creatinine Urine Total Protein Fluid Total Protein Vancomycin Trough Rheumatoid Factor Complement C4 Miscellaneous Test Crossmatch 09/10/16 09/10/16 09/10/16 13:17 17:20 23:32 WBC RBC Hgb Hct MCV MCH MCHC RDW Plt Count Lymph % (Auto) [place] % (Auto) Lymph # [place] # Baso # Seg Neutrophils % Seg Neuts % (Manual) Lymphocytes % (Manual) Monocytes % (Manual) Eosinophils % (Manual) Basophils % (Manual) Nucleated RBC % Seg Neutrophils # Seg Neutrophils # Man Lymphocytes # (Manual) Monocytes # (Manual) Eosinophils # (Manual) Basophils # (Manual) PT INR Fibrinogen dRVVT Confirm Interp Factor V Activity POC ABG pH POC ABG pCO2 POC ABG pO2 ABG pO2 ABG HCO3 ABG Base Excess ABG Hemoglobin Oxyhemoglobin Sodium Potassium Chloride Carbon Dioxide BUN Creatinine Glucose POC Glucose 199 H 186 H Lactic Acid Calcium Phosphorus Magnesium Direct Bilirubin AST ALT Alkaline Phosphatase Lactate Dehydrogenase Troponin T C-Reactive Protein Total Protein Albumin Prealbumin Triglycerides Cholesterol LDL Cholesterol Direct HDL Cholesterol Urine pH Urine WBC (Auto) Urine Creatinine Urine Total Protein Fluid Total Protein Vancomycin Trough Rheumatoid Factor Complement C4 Miscellaneous Test Crossmatch See Detail 09/11/16 09/11/16 09/11/16 05:10 05:10 05:17 WBC 28.4 H RBC Hgb 9.2 L Hct 29.3 L D MCV 73 L MCH 23 L MCHC RDW 18.9 H Plt Count 452 H Lymph % (Auto) [place] % (Auto) Lymph # [place] # Baso # Seg Neutrophils % Seg Neuts % (Manual) 89.5 H Lymphocytes % (Manual) 2.0 L Monocytes % (Manual) Eosinophils % (Manual) Basophils % (Manual) Nucleated RBC % Seg Neutrophils # Seg Neutrophils # Man 25.4 H Lymphocytes # (Manual) 0.6 L Monocytes # (Manual) 1.3 H Eosinophils # (Manual) Basophils # (Manual) PT INR Fibrinogen dRVVT Confirm Interp Factor V Activity POC ABG pH POC ABG pCO2 POC ABG pO2 ABG pO2 ABG HCO3 ABG Base Excess ABG Hemoglobin Oxyhemoglobin Sodium 136 L Potassium Chloride Carbon Dioxide 18 L BUN 107 H Creatinine 2.6 H Glucose 187 H POC Glucose 230 H Lactic Acid Calcium 8.3 L Phosphorus Magnesium Direct Bilirubin AST ALT Alkaline Phosphatase Lactate Dehydrogenase Troponin T C-Reactive Protein Total Protein Albumin Prealbumin Triglycerides Cholesterol LDL Cholesterol Direct HDL Cholesterol Urine pH Urine WBC (Auto) Urine Creatinine Urine Total Protein Fluid Total Protein Vancomycin Trough Rheumatoid Factor Complement C4 Miscellaneous Test Crossmatch 09/11/16 09/11/16 09/11/16 05:55 12:02 17:32 WBC RBC Hgb Hct MCV MCH MCHC RDW Plt Count Lymph % (Auto) [place] % (Auto) Lymph # [place] # Baso # Seg Neutrophils % Seg Neuts % (Manual) Lymphocytes % (Manual) Monocytes % (Manual) Eosinophils % (Manual) Basophils % (Manual) Nucleated RBC % Seg Neutrophils # Seg Neutrophils # Man Lymphocytes # (Manual) Monocytes # (Manual) Eosinophils # (Manual) Basophils # (Manual) PT INR Fibrinogen dRVVT Confirm Interp Factor V Activity POC ABG pH POC ABG pCO2 33.8 L POC ABG pO2 ABG pO2 ABG HCO3 ABG Base Excess ABG Hemoglobin Oxyhemoglobin Sodium Potassium Chloride Carbon Dioxide BUN Creatinine Glucose POC Glucose 191 H 239 H Lactic Acid Calcium Phosphorus Magnesium Direct Bilirubin AST ALT Alkaline Phosphatase Lactate Dehydrogenase Troponin T C-Reactive Protein Total Protein Albumin Prealbumin Triglycerides Cholesterol LDL Cholesterol Direct HDL Cholesterol Urine pH Urine WBC (Auto) Urine Creatinine Urine Total Protein Fluid Total Protein Vancomycin Trough Rheumatoid Factor Complement C4 Miscellaneous Test Crossmatch 09/11/16 09/12/16 09/12/16 23:52 05:09 05:32 WBC RBC Hgb Hct MCV MCH MCHC RDW Plt Count Lymph % (Auto) [place] % (Auto) Lymph # [place] # Baso # Seg Neutrophils % Seg Neuts % (Manual) Lymphocytes % (Manual) Monocytes % (Manual) Eosinophils % (Manual) Basophils % (Manual) Nucleated RBC % Seg Neutrophils # Seg Neutrophils # Man Lymphocytes # (Manual) Monocytes # (Manual) Eosinophils # (Manual) Basophils # (Manual) PT INR Fibrinogen dRVVT Confirm Interp Factor V Activity POC ABG pH POC ABG pCO2 34.6 L POC ABG pO2 ABG pO2 ABG HCO3 ABG Base Excess ABG Hemoglobin Oxyhemoglobin Sodium Potassium Chloride Carbon Dioxide BUN Creatinine Glucose POC Glucose 265 H 184 H Lactic Acid Calcium Phosphorus Magnesium Direct Bilirubin AST ALT Alkaline Phosphatase Lactate Dehydrogenase Troponin T C-Reactive Protein Total Protein Albumin Prealbumin Triglycerides Cholesterol LDL Cholesterol Direct HDL Cholesterol Urine pH Urine WBC (Auto) Urine Creatinine Urine Total Protein Fluid Total Protein Vancomycin Trough Rheumatoid Factor Complement C4 Miscellaneous Test Crossmatch 09/12/16 09/12/16 09/12/16 06:45 06:45 07:22 WBC 31.7 H RBC 3.54 L Hgb 8.3 L Hct 25.9 L MCV 73 L MCH 23 L MCHC RDW 18.9 H Plt Count Lymph % (Auto) [place] % (Auto) Lymph # [place] # Baso # Seg Neutrophils % Seg Neuts % (Manual) 88.5 H Lymphocytes % (Manual) 4.5 L Monocytes % (Manual) Eosinophils % (Manual) Basophils % (Manual) Nucleated RBC % Seg Neutrophils # Seg Neutrophils # Man 28.1 H Lymphocytes # (Manual) Monocytes # (Manual) 1.0 H Eosinophils # (Manual) Basophils # (Manual) PT INR Fibrinogen dRVVT Confirm Interp Factor V Activity POC ABG pH POC ABG pCO2 POC ABG pO2 ABG pO2 ABG HCO3 ABG Base Excess ABG Hemoglobin Oxyhemoglobin Sodium Potassium Chloride Carbon Dioxide 20 L BUN 115 H Creatinine 2.7 H Glucose 165 H POC Glucose Lactic Acid Calcium 8.0 L Phosphorus Magnesium Direct Bilirubin AST ALT Alkaline Phosphatase Lactate Dehydrogenase Troponin T C-Reactive Protein Total Protein Albumin Prealbumin Triglycerides 217 H Cholesterol LDL Cholesterol Direct HDL Cholesterol Urine pH Urine WBC (Auto) Urine Creatinine Urine Total Protein Fluid Total Protein Vancomycin Trough Rheumatoid Factor Complement C4 Miscellaneous Test Crossmatch 09/12/16 09/12/16 09/12/16 07:22 09:59 12:21 WBC RBC Hgb Hct MCV MCH MCHC RDW Plt Count Lymph % (Auto) [place] % (Auto) Lymph # [place] # Baso # Seg Neutrophils % Seg Neuts % (Manual) Lymphocytes % (Manual) Monocytes % (Manual) Eosinophils % (Manual) Basophils % (Manual) Nucleated RBC % Seg Neutrophils # Seg Neutrophils # Man Lymphocytes # (Manual) Monocytes # (Manual) Eosinophils # (Manual) Basophils # (Manual) PT INR Fibrinogen dRVVT Confirm Interp Positive H Factor V Activity POC ABG pH POC ABG pCO2 POC ABG pO2 ABG pO2 ABG HCO3 ABG Base Excess ABG Hemoglobin Oxyhemoglobin Sodium Potassium Chloride Carbon Dioxide BUN Creatinine Glucose POC Glucose 224 H Lactic Acid Calcium Phosphorus Magnesium Direct Bilirubin AST ALT Alkaline Phosphatase Lactate Dehydrogenase Troponin T C-Reactive Protein 1.70 H Total Protein Albumin Prealbumin Triglycerides Cholesterol LDL Cholesterol Direct HDL Cholesterol Urine pH Urine WBC (Auto) Urine Creatinine Urine Total Protein Fluid Total Protein Vancomycin Trough Rheumatoid Factor Complement C4 Miscellaneous Test Crossmatch 09/12/16 09/12/16 09/13/16 16:51 23:28 04:00 WBC 45.0 H* RBC Hgb 9.4 L Hct MCV 75 L MCH 23 L MCHC RDW 19.0 H Plt Count 470 H Lymph % (Auto) [place] % (Auto) Lymph # [place] # Baso # Seg Neutrophils % Seg Neuts % (Manual) 89.0 H Lymphocytes % (Manual) 5.0 L Monocytes % (Manual) Eosinophils % (Manual) Basophils % (Manual) Nucleated RBC % Seg Neutrophils # Seg Neutrophils # Man 40.1 H Lymphocytes # (Manual) Monocytes # (Manual) Eosinophils # (Manual) Basophils # (Manual) PT INR Fibrinogen dRVVT Confirm Interp Factor V Activity POC ABG pH POC ABG pCO2 POC ABG pO2 ABG pO2 ABG HCO3 ABG Base Excess ABG Hemoglobin Oxyhemoglobin Sodium Potassium Chloride Carbon Dioxide BUN Creatinine Glucose POC Glucose 169 H 150 H Lactic Acid Calcium Phosphorus Magnesium Direct Bilirubin AST ALT Alkaline Phosphatase Lactate Dehydrogenase Troponin T C-Reactive Protein Total Protein Albumin Prealbumin Triglycerides Cholesterol LDL Cholesterol Direct HDL Cholesterol Urine pH Urine WBC (Auto) Urine Creatinine Urine Total Protein Fluid Total Protein Vancomycin Trough Rheumatoid Factor Complement C4 Miscellaneous Test Crossmatch 09/13/16 09/13/16 09/13/16 04:00 11:26 17:31 WBC RBC Hgb Hct MCV MCH MCHC RDW Plt Count Lymph % (Auto) [place] % (Auto) Lymph # [place] # Baso # Seg Neutrophils % Seg Neuts % (Manual) Lymphocytes % (Manual) Monocytes % (Manual) Eosinophils % (Manual) Basophils % (Manual) Nucleated RBC % Seg Neutrophils # Seg Neutrophils # Man Lymphocytes # (Manual) Monocytes # (Manual) Eosinophils # (Manual) Basophils # (Manual) PT INR Fibrinogen dRVVT Confirm Interp Factor V Activity POC ABG pH POC ABG pCO2 POC ABG pO2 ABG pO2 ABG HCO3 ABG Base Excess ABG Hemoglobin Oxyhemoglobin Sodium Potassium Chloride Carbon Dioxide 20 L BUN 116 H Creatinine 3.0 H Glucose 172 H POC Glucose 140 H 183 H Lactic Acid Calcium Phosphorus Magnesium Direct Bilirubin AST ALT Alkaline Phosphatase Lactate Dehydrogenase Troponin T C-Reactive Protein Total Protein 6.2 L Albumin 2.9 L Prealbumin Triglycerides Cholesterol LDL Cholesterol Direct HDL Cholesterol Urine pH Urine WBC (Auto) Urine Creatinine Urine Total Protein Fluid Total Protein Vancomycin Trough Rheumatoid Factor Complement C4 Miscellaneous Test Crossmatch 09/13/16 09/14/16 09/14/16 23:23 04:06 04:07 WBC 29.4 H RBC Hgb 8.9 L Hct 27.3 L MCV 75 L MCH 24 L MCHC RDW 19.1 H Plt Count Lymph % (Auto) [place] % (Auto) Lymph # [place] # Baso # Seg Neutrophils % Seg Neuts % (Manual) 84.0 H Lymphocytes % (Manual) 6.0 L Monocytes % (Manual) 9.0 H Eosinophils % (Manual) Basophils % (Manual) Nucleated RBC % Seg Neutrophils # Seg Neutrophils # Man 24.7 H Lymphocytes # (Manual) Monocytes # (Manual) 2.6 H Eosinophils # (Manual) Basophils # (Manual) PT INR Fibrinogen dRVVT Confirm Interp Factor V Activity POC ABG pH 7.342 L POC ABG pCO2 POC ABG pO2 116 H ABG pO2 ABG HCO3 ABG Base Excess ABG Hemoglobin Oxyhemoglobin Sodium Potassium Chloride Carbon Dioxide BUN Creatinine Glucose POC Glucose 154 H Lactic Acid Calcium Phosphorus Magnesium Direct Bilirubin AST ALT Alkaline Phosphatase Lactate Dehydrogenase Troponin T C-Reactive Protein Total Protein Albumin Prealbumin Triglycerides Cholesterol LDL Cholesterol Direct HDL Cholesterol Urine pH Urine WBC (Auto) Urine Creatinine Urine Total Protein Fluid Total Protein Vancomycin Trough Rheumatoid Factor Complement C4 Miscellaneous Test Crossmatch 09/14/16 09/14/16 09/14/16 04:07 05:29 12:19 WBC RBC Hgb Hct MCV MCH MCHC RDW Plt Count Lymph % (Auto) [place] % (Auto) Lymph # [place] # Baso # Seg Neutrophils % Seg Neuts % (Manual) Lymphocytes % (Manual) Monocytes % (Manual) Eosinophils % (Manual) Basophils % (Manual) Nucleated RBC % Seg Neutrophils # Seg Neutrophils # Man Lymphocytes # (Manual) Monocytes # (Manual) Eosinophils # (Manual) Basophils # (Manual) PT INR Fibrinogen dRVVT Confirm Interp Factor V Activity POC ABG pH POC ABG pCO2 POC ABG pO2 ABG pO2 ABG HCO3 ABG Base Excess ABG Hemoglobin Oxyhemoglobin Sodium 136 L Potassium Chloride Carbon Dioxide 18 L BUN 121 H Creatinine 2.8 H Glucose 214 H POC Glucose 239 H 181 H Lactic Acid Calcium Phosphorus Magnesium Direct Bilirubin AST ALT Alkaline Phosphatase Lactate Dehydrogenase Troponin T C-Reactive Protein Total Protein Albumin Prealbumin Triglycerides Cholesterol LDL Cholesterol Direct HDL Cholesterol Urine pH Urine WBC (Auto) Urine Creatinine Urine Total Protein Fluid Total Protein Vancomycin Trough Rheumatoid Factor Complement C4 Miscellaneous Test Crossmatch 09/14/16 09/14/16 09/15/16 18:12 23:37 05:00 WBC 26.1 H RBC 3.05 L Hgb 7.2 L Hct 22.9 L MCV 75 L MCH 24 L MCHC RDW 19.0 H Plt Count Lymph % (Auto) [place] % (Auto) Lymph # [place] # Baso # Seg Neutrophils % Seg Neuts % (Manual) Lymphocytes % (Manual) Monocytes % (Manual) Eosinophils % (Manual) Basophils % (Manual) Nucleated RBC % Seg Neutrophils # Seg Neutrophils # Man Lymphocytes # (Manual) Monocytes # (Manual) Eosinophils # (Manual) Basophils # (Manual) PT INR Fibrinogen dRVVT Confirm Interp Factor V Activity POC ABG pH POC ABG pCO2 POC ABG pO2 ABG pO2 ABG HCO3 ABG Base Excess ABG Hemoglobin Oxyhemoglobin Sodium Potassium Chloride Carbon Dioxide BUN Creatinine Glucose POC Glucose 266 H 154 H Lactic Acid Calcium Phosphorus Magnesium Direct Bilirubin AST ALT Alkaline Phosphatase Lactate Dehydrogenase Troponin T C-Reactive Protein Total Protein Albumin Prealbumin Triglycerides Cholesterol LDL Cholesterol Direct HDL Cholesterol Urine pH Urine WBC (Auto) Urine Creatinine Urine Total Protein Fluid Total Protein Vancomycin Trough Rheumatoid Factor Complement C4 Miscellaneous Test Crossmatch 09/15/16 09/15/16 09/15/16 05:00 05:17 12:45 WBC RBC Hgb Hct MCV MCH MCHC RDW Plt Count Lymph % (Auto) [place] % (Auto) Lymph # [place] # Baso # Seg Neutrophils % Seg Neuts % (Manual) Lymphocytes % (Manual) Monocytes % (Manual) Eosinophils % (Manual) Basophils % (Manual) Nucleated RBC % Seg Neutrophils # Seg Neutrophils # Man Lymphocytes # (Manual) Monocytes # (Manual) Eosinophils # (Manual) Basophils # (Manual) PT INR Fibrinogen dRVVT Confirm Interp Factor V Activity POC ABG pH POC ABG pCO2 POC ABG pO2 ABG pO2 ABG HCO3 ABG Base Excess ABG Hemoglobin Oxyhemoglobin Sodium Potassium 5.2 H Chloride Carbon Dioxide 18 L BUN 139 H Creatinine 3.7 H Glucose 227 H POC Glucose 226 H 244 H Lactic Acid Calcium 8.3 L Phosphorus Magnesium Direct Bilirubin AST ALT Alkaline Phosphatase Lactate Dehydrogenase Troponin T C-Reactive Protein Total Protein Albumin Prealbumin Triglycerides Cholesterol LDL Cholesterol Direct HDL Cholesterol Urine pH Urine WBC (Auto) Urine Creatinine Urine Total Protein Fluid Total Protein Vancomycin Trough Rheumatoid Factor Complement C4 Miscellaneous Test Crossmatch 09/15/16 09/15/16 09/15/16 14:32 17:33 23:35 WBC RBC Hgb Hct MCV MCH MCHC RDW Plt Count Lymph % (Auto) [place] % (Auto) Lymph # [place] # Baso # Seg Neutrophils % Seg Neuts % (Manual) Lymphocytes % (Manual) Monocytes % (Manual) Eosinophils % (Manual) Basophils % (Manual) Nucleated RBC % Seg Neutrophils # Seg Neutrophils # Man Lymphocytes # (Manual) Monocytes # (Manual) Eosinophils # (Manual) Basophils # (Manual) PT INR Fibrinogen dRVVT Confirm Interp Factor V Activity POC ABG pH POC ABG pCO2 27.7 L POC ABG pO2 120 H ABG pO2 ABG HCO3 ABG Base Excess ABG Hemoglobin Oxyhemoglobin Sodium Potassium Chloride Carbon Dioxide BUN Creatinine Glucose POC Glucose 232 H 167 H Lactic Acid Calcium Phosphorus Magnesium Direct Bilirubin AST ALT Alkaline Phosphatase Lactate Dehydrogenase Troponin T C-Reactive Protein Total Protein Albumin Prealbumin Triglycerides Cholesterol LDL Cholesterol Direct HDL Cholesterol Urine pH Urine WBC (Auto) Urine Creatinine Urine Total Protein Fluid Total Protein Vancomycin Trough Rheumatoid Factor Complement C4 Miscellaneous Test Crossmatch 09/16/16 09/16/16 09/16/16 03:58 10:27 10:27 WBC 19.0 H RBC 2.77 L Hgb 6.5 L Hct 20.9 L MCV 76 L MCH 23 L MCHC RDW 19.3 H Plt Count Lymph % (Auto) 11.[address] [place] % (Auto) Lymph # [place] # 1.1 H Baso # Seg Neutrophils % 82.5 H Seg Neuts % (Manual) Lymphocytes % (Manual) Monocytes % (Manual) Eosinophils % (Manual) Basophils % (Manual) Nucleated RBC % Seg Neutrophils # 15.7 H Seg Neutrophils # Man Lymphocytes # (Manual) Monocytes # (Manual) Eosinophils # (Manual) Basophils # (Manual) PT INR Fibrinogen dRVVT Confirm Interp Factor V Activity POC ABG pH POC ABG pCO2 POC ABG pO2 ABG pO2 ABG HCO3 ABG Base Excess ABG Hemoglobin Oxyhemoglobin Sodium Potassium Chloride 109.3 H Carbon Dioxide 18 L BUN 139 H Creatinine 4.1 H Glucose 144 H POC Glucose 146 H Lactic Acid Calcium 8.1 L Phosphorus Magnesium Direct Bilirubin AST ALT Alkaline Phosphatase Lactate Dehydrogenase Troponin T C-Reactive Protein Total Protein Albumin Prealbumin Triglycerides Cholesterol LDL Cholesterol Direct HDL Cholesterol Urine pH Urine WBC (Auto) Urine Creatinine Urine Total Protein Fluid Total Protein Vancomycin Trough Rheumatoid Factor Complement C4 Miscellaneous Test Crossmatch 09/16/16 09/16/16 09/16/16 12:04 12:10 13:55 WBC RBC Hgb Hct MCV MCH MCHC RDW Plt Count Lymph % (Auto) [place] % (Auto) Lymph # [place] # Baso # Seg Neutrophils % Seg Neuts % (Manual) Lymphocytes % (Manual) Monocytes % (Manual) Eosinophils % (Manual) Basophils % (Manual) Nucleated RBC % Seg Neutrophils # Seg Neutrophils # Man Lymphocytes # (Manual) Monocytes # (Manual) Eosinophils # (Manual) Basophils # (Manual) PT INR Fibrinogen dRVVT Confirm Interp Factor V Activity POC ABG pH POC ABG pCO2 32.9 L POC ABG pO2 ABG pO2 ABG HCO3 ABG Base Excess ABG Hemoglobin Oxyhemoglobin Sodium Potassium Chloride Carbon Dioxide BUN Creatinine Glucose POC Glucose 185 H Lactic Acid Calcium Phosphorus Magnesium Direct Bilirubin AST ALT Alkaline Phosphatase Lactate Dehydrogenase Troponin T C-Reactive Protein Total Protein Albumin Prealbumin Triglycerides Cholesterol LDL Cholesterol Direct HDL Cholesterol Urine pH Urine WBC (Auto) Urine Creatinine Urine Total Protein Fluid Total Protein Vancomycin Trough Rheumatoid Factor Complement C4 Miscellaneous Test Crossmatch See Detail 09/16/16 09/16/16 09/16/16 17:55 19:19 23:48 WBC RBC Hgb Hct MCV MCH MCHC RDW Plt Count Lymph % (Auto) [place] % (Auto) Lymph # [place] # Baso # Seg Neutrophils % Seg Neuts % (Manual) Lymphocytes % (Manual) Monocytes % (Manual) Eosinophils % (Manual) Basophils % (Manual) Nucleated RBC % Seg Neutrophils # Seg Neutrophils # Man Lymphocytes # (Manual) Monocytes # (Manual) Eosinophils # (Manual) Basophils # (Manual) PT INR Fibrinogen dRVVT Confirm Interp Factor V Activity POC ABG pH POC ABG pCO2 POC ABG pO2 ABG pO2 ABG HCO3 ABG Base Excess ABG Hemoglobin Oxyhemoglobin Sodium Potassium Chloride Carbon Dioxide BUN Creatinine Glucose POC Glucose 222 H 107 H Lactic Acid Calcium Phosphorus Magnesium Direct Bilirubin AST ALT Alkaline Phosphatase Lactate Dehydrogenase Troponin T C-Reactive Protein Total Protein Albumin Prealbumin Triglycerides Cholesterol LDL Cholesterol Direct HDL Cholesterol Urine pH Urine WBC (Auto) Urine Creatinine 47.4 H Urine Total Protein 16 H Fluid Total Protein Vancomycin Trough Rheumatoid Factor Complement C4 Miscellaneous Test Crossmatch 09/17/16 09/17/16 09/17/16 03:45 03:45 04:55 WBC 19.6 H RBC 3.41 L Hgb 8.5 L Hct 26.7 L MCV 78 L MCH 25 L MCHC RDW 19.9 H Plt Count Lymph % (Auto) 9.[address] [place] % (Auto) Lymph # [place] # 1.2 H Baso # Seg Neutrophils % 83.9 H Seg Neuts % (Manual) Lymphocytes % (Manual) Monocytes % (Manual) Eosinophils % (Manual) Basophils % (Manual) Nucleated RBC % Seg Neutrophils # 16.4 H Seg Neutrophils # Man Lymphocytes # (Manual) Monocytes # (Manual) Eosinophils # (Manual) Basophils # (Manual) PT INR Fibrinogen dRVVT Confirm Interp Factor V Activity POC ABG pH POC ABG pCO2 POC ABG pO2 ABG pO2 ABG HCO3 ABG Base Excess ABG Hemoglobin Oxyhemoglobin Sodium 146 H Potassium 5.1 H Chloride 110.9 H Carbon Dioxide 16 L BUN 146 H Creatinine 4.0 H Glucose 108 H POC Glucose 133 H Lactic Acid Calcium Phosphorus Magnesium 3.00 H Direct Bilirubin AST ALT Alkaline Phosphatase Lactate Dehydrogenase Troponin T C-Reactive Protein Total Protein Albumin Prealbumin Triglycerides Cholesterol LDL Cholesterol Direct HDL Cholesterol Urine pH Urine WBC (Auto) Urine Creatinine Urine Total Protein Fluid Total Protein Vancomycin Trough Rheumatoid Factor Complement C4 Miscellaneous Test Crossmatch 09/17/16 09/17/16 09/17/16 11:15 17:33 23:47 WBC RBC Hgb Hct MCV MCH MCHC RDW Plt Count Lymph % (Auto) [place] % (Auto) Lymph # [place] # Baso # Seg Neutrophils % Seg Neuts % (Manual) Lymphocytes % (Manual) Monocytes % (Manual) Eosinophils % (Manual) Basophils % (Manual) Nucleated RBC % Seg Neutrophils # Seg Neutrophils # Man Lymphocytes # (Manual) Monocytes # (Manual) Eosinophils # (Manual) Basophils # (Manual) PT INR Fibrinogen dRVVT Confirm Interp Factor V Activity POC ABG pH POC ABG pCO2 POC ABG pO2 ABG pO2 ABG HCO3 ABG Base Excess ABG Hemoglobin Oxyhemoglobin Sodium Potassium Chloride Carbon Dioxide BUN Creatinine Glucose POC Glucose 176 H 246 H 148 H Lactic Acid Calcium Phosphorus Magnesium Direct Bilirubin AST ALT Alkaline Phosphatase Lactate Dehydrogenase Troponin T C-Reactive Protein Total Protein Albumin Prealbumin Triglycerides Cholesterol LDL Cholesterol Direct HDL Cholesterol Urine pH Urine WBC (Auto) Urine Creatinine Urine Total Protein Fluid Total Protein Vancomycin Trough Rheumatoid Factor Complement C4 Miscellaneous Test Crossmatch 09/18/16 09/18/16 09/18/16 05:33 08:31 08:31 WBC 18.0 H RBC 3.17 L Hgb 9.0 L Hct 25.7 L MCV MCH MCHC 35 H RDW 20.4 H Plt Count Lymph % (Auto) [place] % (Auto) Lymph # [place] # Baso # Seg Neutrophils % Seg Neuts % (Manual) Lymphocytes % (Manual) Monocytes % (Manual) Eosinophils % (Manual) Basophils % (Manual) Nucleated RBC % Seg Neutrophils # Seg Neutrophils # Man Lymphocytes # (Manual) Monocytes # (Manual) Eosinophils # (Manual) Basophils # (Manual) PT INR Fibrinogen dRVVT Confirm Interp Factor V Activity POC ABG pH POC ABG pCO2 POC ABG pO2 ABG pO2 ABG HCO3 ABG Base Excess ABG Hemoglobin Oxyhemoglobin Sodium Potassium Chloride Carbon Dioxide 15 L BUN 124 H Creatinine 3.8 H Glucose POC Glucose 120 H Lactic Acid Calcium 8.1 L Phosphorus Magnesium Direct Bilirubin AST ALT Alkaline Phosphatase Lactate Dehydrogenase Troponin T C-Reactive Protein Total Protein Albumin Prealbumin Triglycerides Cholesterol LDL Cholesterol Direct HDL Cholesterol Urine pH Urine WBC (Auto) Urine Creatinine Urine Total Protein Fluid Total Protein Vancomycin Trough Rheumatoid Factor Complement C4 Miscellaneous Test Crossmatch 09/18/16 09/18/16 09/18/16 12:03 15:34 17:50 WBC RBC Hgb Hct MCV MCH MCHC RDW Plt Count Lymph % (Auto) [place] % (Auto) Lymph # [place] # Baso # Seg Neutrophils % Seg Neuts % (Manual) Lymphocytes % (Manual) Monocytes % (Manual) Eosinophils % (Manual) Basophils % (Manual) Nucleated RBC % Seg Neutrophils # Seg Neutrophils # Man Lymphocytes # (Manual) Monocytes # (Manual) Eosinophils # (Manual) Basophils # (Manual) PT INR Fibrinogen dRVVT Confirm Interp Factor V Activity POC ABG pH POC ABG pCO2 25.7 L POC ABG pO2 66 L ABG pO2 ABG HCO3 ABG Base Excess ABG Hemoglobin Oxyhemoglobin Sodium Potassium Chloride Carbon Dioxide BUN Creatinine Glucose POC Glucose 156 H 220 H Lactic Acid Calcium Phosphorus Magnesium Direct Bilirubin AST ALT Alkaline Phosphatase Lactate Dehydrogenase Troponin T C-Reactive Protein Total Protein Albumin Prealbumin Triglycerides Cholesterol LDL Cholesterol Direct HDL Cholesterol Urine pH Urine WBC (Auto) Urine Creatinine Urine Total Protein Fluid Total Protein Vancomycin Trough Rheumatoid Factor Complement C4 Miscellaneous Test Crossmatch 09/19/16 09/19/16 09/19/16 06:21 09:50 09:50 WBC 17.1 H RBC 3.49 L Hgb 9.0 L Hct 28.1 L MCV MCH 26 L MCHC RDW 20.8 H Plt Count Lymph % (Auto) 11.[address] [place] % (Auto) 7.5 H Lymph # [place] # 1.3 H Baso # Seg Neutrophils % 79.8 H Seg Neuts % (Manual) Lymphocytes % (Manual) Monocytes % (Manual) Eosinophils % (Manual) Basophils % (Manual) Nucleated RBC % Seg Neutrophils # 13.7 H Seg Neutrophils # Man Lymphocytes # (Manual) Monocytes # (Manual) Eosinophils # (Manual) Basophils # (Manual) PT INR Fibrinogen dRVVT Confirm Interp Factor V Activity POC ABG pH POC ABG pCO2 POC ABG pO2 ABG pO2 ABG HCO3 ABG Base Excess ABG Hemoglobin Oxyhemoglobin Sodium Potassium Chloride 108.6 H Carbon Dioxide 15 L BUN 125 H Creatinine 4.1 H Glucose 124 H POC Glucose 119 H Lactic Acid Calcium Phosphorus Magnesium Direct Bilirubin AST ALT Alkaline Phosphatase Lactate Dehydrogenase Troponin T C-Reactive Protein Total Protein Albumin Prealbumin Triglycerides Cholesterol LDL Cholesterol Direct HDL Cholesterol Urine pH Urine WBC (Auto) Urine Creatinine Urine Total Protein Fluid Total Protein Vancomycin Trough Rheumatoid Factor Complement C4 Miscellaneous Test Crossmatch 09/19/16 09/19/16 09/19/16 11:25 17:53 23:36 WBC RBC Hgb Hct MCV MCH MCHC RDW Plt Count Lymph % (Auto) [place] % (Auto) Lymph # [place] # Baso # Seg Neutrophils % Seg Neuts % (Manual) Lymphocytes % (Manual) Monocytes % (Manual) Eosinophils % (Manual) Basophils % (Manual) Nucleated RBC % Seg Neutrophils # Seg Neutrophils # Man Lymphocytes # (Manual) Monocytes # (Manual) Eosinophils # (Manual) Basophils # (Manual) PT INR Fibrinogen dRVVT Confirm Interp Factor V Activity POC ABG pH POC ABG pCO2 POC ABG pO2 ABG pO2 ABG HCO3 ABG Base Excess ABG Hemoglobin Oxyhemoglobin Sodium Potassium Chloride Carbon Dioxide BUN Creatinine Glucose POC Glucose 160 H 245 H 121 H Lactic Acid Calcium Phosphorus Magnesium Direct Bilirubin AST ALT Alkaline Phosphatase Lactate Dehydrogenase Troponin T C-Reactive Protein Total Protein Albumin Prealbumin Triglycerides Cholesterol LDL Cholesterol Direct HDL Cholesterol Urine pH Urine WBC (Auto) Urine Creatinine Urine Total Protein Fluid Total Protein Vancomycin Trough Rheumatoid Factor Complement C4 Miscellaneous Test Crossmatch 09/20/16 09/20/16 09/20/16 04:10 04:10 04:10 WBC 17.0 H RBC 3.21 L Hgb 8.2 L Hct 25.5 L MCV MCH 26 L MCHC RDW 20.9 H Plt Count Lymph % (Auto) [place] % (Auto) Lymph # [place] # Baso # Seg Neutrophils % Seg Neuts % (Manual) Lymphocytes % (Manual) Monocytes % (Manual) Eosinophils % (Manual) Basophils % (Manual) Nucleated RBC % Seg Neutrophils # Seg Neutrophils # Man Lymphocytes # (Manual) Monocytes # (Manual) Eosinophils # (Manual) Basophils # (Manual) PT INR Fibrinogen dRVVT Confirm Interp Factor V Activity POC ABG pH POC ABG pCO2 POC ABG pO2 ABG pO2 ABG HCO3 ABG Base Excess ABG Hemoglobin Oxyhemoglobin Sodium Potassium Chloride 111.0 H Carbon Dioxide 16 L BUN 129 H Creatinine 3.7 H Glucose 115 H POC Glucose Lactic Acid Calcium 8.2 L Phosphorus Magnesium Direct Bilirubin AST ALT Alkaline Phosphatase Lactate Dehydrogenase Troponin T C-Reactive Protein Total Protein Albumin Prealbumin Triglycerides 243 H Cholesterol LDL Cholesterol Direct HDL Cholesterol Urine pH Urine WBC (Auto) Urine Creatinine Urine Total Protein Fluid Total Protein Vancomycin Trough Rheumatoid Factor Complement C4 Miscellaneous Test Crossmatch 09/20/16 09/20/16 09/20/16 05:40 11:52 16:50 WBC RBC Hgb Hct MCV MCH MCHC RDW Plt Count Lymph % (Auto) [place] % (Auto) Lymph # [place] # Baso # Seg Neutrophils % Seg Neuts % (Manual) Lymphocytes % (Manual) Monocytes % (Manual) Eosinophils % (Manual) Basophils % (Manual) Nucleated RBC % Seg Neutrophils # Seg Neutrophils # Man Lymphocytes # (Manual) Monocytes # (Manual) Eosinophils # (Manual) Basophils # (Manual) PT INR Fibrinogen dRVVT Confirm Interp Factor V Activity POC ABG pH POC ABG pCO2 POC ABG pO2 ABG pO2 ABG HCO3 ABG Base Excess ABG Hemoglobin Oxyhemoglobin Sodium Potassium Chloride Carbon Dioxide BUN Creatinine Glucose POC Glucose 131 H 183 H 236 H Lactic Acid Calcium Phosphorus Magnesium Direct Bilirubin AST ALT Alkaline Phosphatase Lactate Dehydrogenase Troponin T C-Reactive Protein Total Protein Albumin Prealbumin Triglycerides Cholesterol LDL Cholesterol Direct HDL Cholesterol Urine pH Urine WBC (Auto) Urine Creatinine Urine Total Protein Fluid Total Protein Vancomycin Trough Rheumatoid Factor Complement C4 Miscellaneous Test Crossmatch 09/20/16 09/21/16 09/21/16 23:51 03:30 04:44 WBC RBC Hgb Hct MCV MCH MCHC RDW Plt Count Lymph % (Auto) [place] % (Auto) Lymph # [place] # Baso # Seg Neutrophils % Seg Neuts % (Manual) Lymphocytes % (Manual) Monocytes % (Manual) Eosinophils % (Manual) Basophils % (Manual) Nucleated RBC % Seg Neutrophils # Seg Neutrophils # Man Lymphocytes # (Manual) Monocytes # (Manual) Eosinophils # (Manual) Basophils # (Manual) PT INR Fibrinogen dRVVT Confirm Interp Factor V Activity POC ABG pH POC ABG pCO2 POC ABG pO2 ABG pO2 ABG HCO3 ABG Base Excess ABG Hemoglobin Oxyhemoglobin Sodium Potassium Chloride Carbon Dioxide BUN Creatinine Glucose POC Glucose 114 H 141 H Lactic Acid Calcium Phosphorus Magnesium 2.70 H Direct Bilirubin AST ALT Alkaline Phosphatase Lactate Dehydrogenase Troponin T C-Reactive Protein Total Protein Albumin Prealbumin Triglycerides Cholesterol LDL Cholesterol Direct HDL Cholesterol Urine pH Urine WBC (Auto) Urine Creatinine Urine Total Protein Fluid Total Protein Vancomycin Trough Rheumatoid Factor Complement C4 Miscellaneous Test Crossmatch 09/21/16 09/21/16 09/21/16 07:45 07:45 10:01 WBC 13.8 H RBC 2.94 L Hgb 7.5 L Hct 23.5 L MCV MCH 26 L MCHC RDW 21.2 H Plt Count Lymph % (Auto) 6.[address] [place] % (Auto) 9.4 H Lymph # 0.[address] [place] # 1.3 H Baso # Seg Neutrophils % 83.2 H Seg Neuts % (Manual) Lymphocytes % (Manual) Monocytes % (Manual) Eosinophils % (Manual) Basophils % (Manual) Nucleated RBC % Seg Neutrophils # 11.5 H Seg Neutrophils # Man Lymphocytes # (Manual) Monocytes # (Manual) Eosinophils # (Manual) Basophils # (Manual) PT INR Fibrinogen dRVVT Confirm Interp Factor V Activity POC ABG pH 7.308 L POC ABG pCO2 31.9 L POC ABG pO2 148 H ABG pO2 ABG HCO3 ABG Base Excess ABG Hemoglobin Oxyhemoglobin Sodium 147 H Potassium Chloride 114.2 H Carbon Dioxide 15 L BUN 120 H Creatinine 3.9 H Glucose 156 H POC Glucose Lactic Acid Calcium 8.2 L Phosphorus Magnesium Direct Bilirubin AST ALT Alkaline Phosphatase Lactate Dehydrogenase Troponin T C-Reactive Protein Total Protein Albumin Prealbumin Triglycerides Cholesterol LDL Cholesterol Direct HDL Cholesterol Urine pH Urine WBC (Auto) Urine Creatinine Urine Total Protein Fluid Total Protein Vancomycin Trough Rheumatoid Factor Complement C4 Miscellaneous Test Crossmatch 09/21/16 09/21/16 09/21/16 12:00 12:03 13:00 WBC RBC Hgb Hct MCV MCH MCHC RDW Plt Count Lymph % (Auto) [place] % (Auto) Lymph # [place] # Baso # Seg Neutrophils % Seg Neuts % (Manual) Lymphocytes % (Manual) Monocytes % (Manual) Eosinophils % (Manual) Basophils % (Manual) Nucleated RBC % Seg Neutrophils # Seg Neutrophils # Man Lymphocytes # (Manual) Monocytes # (Manual) Eosinophils # (Manual) Basophils # (Manual) PT INR Fibrinogen dRVVT Confirm Interp Factor V Activity POC ABG pH POC ABG pCO2 POC ABG pO2 ABG pO2 ABG HCO3 ABG Base Excess ABG Hemoglobin Oxyhemoglobin Sodium Potassium Chloride Carbon Dioxide BUN Creatinine Glucose POC Glucose 163 H Lactic Acid Calcium Phosphorus Magnesium Direct Bilirubin AST ALT Alkaline Phosphatase Lactate Dehydrogenase Troponin T C-Reactive Protein Total Protein Albumin Prealbumin Triglycerides Cholesterol LDL Cholesterol Direct HDL Cholesterol Urine pH Urine WBC (Auto) Urine Creatinine 54.8 H Urine Total Protein Fluid Total Protein Vancomycin Trough 2.3 L Rheumatoid Factor Complement C4 Miscellaneous Test Crossmatch 09/21/16 09/21/16 09/22/16 16:51 23:17 06:27 WBC RBC Hgb Hct MCV MCH MCHC RDW Plt Count Lymph % (Auto) [place] % (Auto) Lymph # [place] # Baso # Seg Neutrophils % Seg Neuts % (Manual) Lymphocytes % (Manual) Monocytes % (Manual) Eosinophils % (Manual) Basophils % (Manual) Nucleated RBC % Seg Neutrophils # Seg Neutrophils # Man Lymphocytes # (Manual) Monocytes # (Manual) Eosinophils # (Manual) Basophils # (Manual) PT INR Fibrinogen dRVVT Confirm Interp Factor V Activity POC ABG pH POC ABG pCO2 POC ABG pO2 ABG pO2 ABG HCO3 ABG Base Excess ABG Hemoglobin Oxyhemoglobin Sodium Potassium Chloride Carbon Dioxide BUN Creatinine Glucose POC Glucose 206 H 114 H 115 H Lactic Acid Calcium Phosphorus Magnesium Direct Bilirubin AST ALT Alkaline Phosphatase Lactate Dehydrogenase Troponin T C-Reactive Protein Total Protein Albumin Prealbumin Triglycerides Cholesterol LDL Cholesterol Direct HDL Cholesterol Urine pH Urine WBC (Auto) Urine Creatinine Urine Total Protein Fluid Total Protein Vancomycin Trough Rheumatoid Factor Complement C4 Miscellaneous Test Crossmatch 09/22/16 09/22/16 09/22/16 07:50 07:50 12:00 WBC 17.8 H RBC 3.04 L Hgb 8.0 L Hct 24.7 L MCV MCH 26 L MCHC RDW 21.6 H Plt Count Lymph % (Auto) [place] % (Auto) Lymph # [place] # Baso # Seg Neutrophils % Seg Neuts % (Manual) Lymphocytes % (Manual) Monocytes % (Manual) Eosinophils % (Manual) Basophils % (Manual) Nucleated RBC % Seg Neutrophils # Seg Neutrophils # Man Lymphocytes # (Manual) Monocytes # (Manual) Eosinophils # (Manual) Basophils # (Manual) PT INR Fibrinogen dRVVT Confirm Interp Factor V Activity POC ABG pH POC ABG pCO2 POC ABG pO2 ABG pO2 ABG HCO3 ABG Base Excess ABG Hemoglobin Oxyhemoglobin Sodium 150 H Potassium Chloride 118.2 H Carbon Dioxide 14 L BUN 111 H Creatinine 3.7 H Glucose 157 H POC Glucose 183 H Lactic Acid Calcium Phosphorus Magnesium Direct Bilirubin AST ALT Alkaline Phosphatase Lactate Dehydrogenase Troponin T C-Reactive Protein Total Protein Albumin Prealbumin Triglycerides Cholesterol LDL Cholesterol Direct HDL Cholesterol Urine pH Urine WBC (Auto) Urine Creatinine Urine Total Protein Fluid Total Protein Vancomycin Trough Rheumatoid Factor Complement C4 Miscellaneous Test Crossmatch 09/22/16 09/22/16 09/23/16 17:29 23:10 05:00 WBC 19.2 H RBC 3.13 L Hgb 8.0 L Hct 25.2 L MCV MCH 26 L MCHC RDW 22.1 H Plt Count Lymph % (Auto) [place] % (Auto) Lymph # [place] # Baso # Seg Neutrophils % Seg Neuts % (Manual) 92.0 H Lymphocytes % (Manual) 3.0 L Monocytes % (Manual) Eosinophils % (Manual) Basophils % (Manual) Nucleated RBC % Seg Neutrophils # Seg Neutrophils # Man 17.7 H Lymphocytes # (Manual) 0.6 L Monocytes # (Manual) Eosinophils # (Manual) Basophils # (Manual) PT INR Fibrinogen dRVVT Confirm Interp Factor V Activity POC ABG pH POC ABG pCO2 POC ABG pO2 ABG pO2 ABG HCO3 ABG Base Excess ABG Hemoglobin Oxyhemoglobin Sodium Potassium Chloride Carbon Dioxide BUN Creatinine Glucose POC Glucose 197 H 169 H Lactic Acid Calcium Phosphorus Magnesium Direct Bilirubin AST ALT Alkaline Phosphatase Lactate Dehydrogenase Troponin T C-Reactive Protein Total Protein Albumin Prealbumin Triglycerides Cholesterol LDL Cholesterol Direct HDL Cholesterol Urine pH Urine WBC (Auto) Urine Creatinine Urine Total Protein Fluid Total Protein Vancomycin Trough Rheumatoid Factor Complement C4 Miscellaneous Test Crossmatch 09/23/16 09/23/16 09/23/16 05:00 05:00 05:10 WBC RBC Hgb Hct MCV MCH MCHC RDW Plt Count Lymph % (Auto) [place] % (Auto) Lymph # [place] # Baso # Seg Neutrophils % Seg Neuts % (Manual) Lymphocytes % (Manual) Monocytes % (Manual) Eosinophils % (Manual) Basophils % (Manual) Nucleated RBC % Seg Neutrophils # Seg Neutrophils # Man Lymphocytes # (Manual) Monocytes # (Manual) Eosinophils # (Manual) Basophils # (Manual) PT INR Fibrinogen dRVVT Confirm Interp Factor V Activity POC ABG pH POC ABG pCO2 POC ABG pO2 ABG pO2 ABG HCO3 ABG Base Excess ABG Hemoglobin Oxyhemoglobin Sodium 147 H Potassium 3.2 L Chloride 115.7 H Carbon Dioxide 13 L BUN 111 H Creatinine 3.8 H Glucose 194 H POC Glucose 188 H Lactic Acid Calcium 7.3 L D Phosphorus Magnesium Direct Bilirubin AST ALT Alkaline Phosphatase Lactate Dehydrogenase Troponin T C-Reactive Protein 3.20 H Total Protein Albumin Prealbumin Triglycerides Cholesterol LDL Cholesterol Direct HDL Cholesterol Urine pH Urine WBC (Auto) Urine Creatinine Urine Total Protein Fluid Total Protein Vancomycin Trough Rheumatoid Factor Complement C4 Miscellaneous Test Crossmatch 09/23/16 09/23/16 09/23/16 11:37 12:29 18:01 WBC RBC Hgb Hct MCV MCH MCHC RDW Plt Count Lymph % (Auto) [place] % (Auto) Lymph # [place] # Baso # Seg Neutrophils % Seg Neuts % (Manual) Lymphocytes % (Manual) Monocytes % (Manual) Eosinophils % (Manual) Basophils % (Manual) Nucleated RBC % Seg Neutrophils # Seg Neutrophils # Man Lymphocytes # (Manual) Monocytes # (Manual) Eosinophils # (Manual) Basophils # (Manual) PT INR Fibrinogen dRVVT Confirm Interp Factor V Activity POC ABG pH POC ABG pCO2 18.9 L POC ABG pO2 143 H ABG pO2 ABG HCO3 ABG Base Excess ABG Hemoglobin Oxyhemoglobin Sodium Potassium Chloride Carbon Dioxide BUN Creatinine Glucose POC Glucose 153 H 108 H Lactic Acid Calcium Phosphorus Magnesium Direct Bilirubin AST ALT Alkaline Phosphatase Lactate Dehydrogenase Troponin T C-Reactive Protein Total Protein Albumin Prealbumin Triglycerides Cholesterol LDL Cholesterol Direct HDL Cholesterol Urine pH Urine WBC (Auto) Urine Creatinine Urine Total Protein Fluid Total Protein Vancomycin Trough Rheumatoid Factor Complement C4 Miscellaneous Test Crossmatch 09/23/16 09/23/16 09/24/16 21:19 23:43 05:16 WBC RBC Hgb Hct MCV MCH MCHC RDW Plt Count Lymph % (Auto) [place] % (Auto) Lymph # [place] # Baso # Seg Neutrophils % Seg Neuts % (Manual) Lymphocytes % (Manual) Monocytes % (Manual) Eosinophils % (Manual) Basophils % (Manual) Nucleated RBC % Seg Neutrophils # Seg Neutrophils # Man Lymphocytes # (Manual) Monocytes # (Manual) Eosinophils # (Manual) Basophils # (Manual) PT INR Fibrinogen dRVVT Confirm Interp Factor V Activity POC ABG pH POC ABG pCO2 17.3 L POC ABG pO2 112 H ABG pO2 ABG HCO3 ABG Base Excess ABG Hemoglobin Oxyhemoglobin Sodium Potassium Chloride Carbon Dioxide BUN Creatinine Glucose POC Glucose 143 H 164 H Lactic Acid Calcium Phosphorus Magnesium Direct Bilirubin AST ALT Alkaline Phosphatase Lactate Dehydrogenase Troponin T C-Reactive Protein Total Protein Albumin Prealbumin Triglycerides Cholesterol LDL Cholesterol Direct HDL Cholesterol Urine pH Urine WBC (Auto) Urine Creatinine Urine Total Protein Fluid Total Protein Vancomycin Trough Rheumatoid Factor Complement C4 Miscellaneous Test Crossmatch 09/24/16 09/24/16 09/24/16 05:21 11:58 17:06 WBC RBC Hgb Hct MCV MCH MCHC RDW Plt Count Lymph % (Auto) [place] % (Auto) Lymph # [place] # Baso # Seg Neutrophils % Seg Neuts % (Manual) Lymphocytes % (Manual) Monocytes % (Manual) Eosinophils % (Manual) Basophils % (Manual) Nucleated RBC % Seg Neutrophils # Seg Neutrophils # Man Lymphocytes # (Manual) Monocytes # (Manual) Eosinophils # (Manual) Basophils # (Manual) PT INR Fibrinogen dRVVT Confirm Interp Factor V Activity POC ABG pH POC ABG pCO2 POC ABG pO2 ABG pO2 ABG HCO3 ABG Base Excess ABG Hemoglobin Oxyhemoglobin Sodium Potassium Chloride Carbon Dioxide 10 L BUN 103 H Creatinine 4.3 H Glucose 163 H POC Glucose 173 H 167 H Lactic Acid Calcium 6.5 L Phosphorus Magnesium Direct Bilirubin AST ALT Alkaline Phosphatase Lactate Dehydrogenase Troponin T C-Reactive Protein Total Protein Albumin Prealbumin Triglycerides Cholesterol LDL Cholesterol Direct HDL Cholesterol Urine pH Urine WBC (Auto) Urine Creatinine Urine Total Protein Fluid Total Protein Vancomycin Trough Rheumatoid Factor Complement C4 Miscellaneous Test Crossmatch 09/24/16 09/24/16 09/24/16 20:15 21:02 23:48 WBC RBC Hgb Hct MCV MCH MCHC RDW Plt Count Lymph % (Auto) [place] % (Auto) Lymph # [place] # Baso # Seg Neutrophils % Seg Neuts % (Manual) Lymphocytes % (Manual) Monocytes % (Manual) Eosinophils % (Manual) Basophils % (Manual) Nucleated RBC % Seg Neutrophils # Seg Neutrophils # Man Lymphocytes # (Manual) Monocytes # (Manual) Eosinophils # (Manual) Basophils # (Manual) PT INR Fibrinogen dRVVT Confirm Interp Factor V Activity POC ABG pH 7.288 L POC ABG pCO2 30.2 L 21.5 L POC ABG pO2 32 L 39 L ABG pO2 ABG HCO3 ABG Base Excess ABG Hemoglobin Oxyhemoglobin Sodium Potassium Chloride Carbon Dioxide BUN Creatinine Glucose POC Glucose 109 H Lactic Acid Calcium Phosphorus Magnesium Direct Bilirubin AST ALT Alkaline Phosphatase Lactate Dehydrogenase Troponin T C-Reactive Protein Total Protein Albumin Prealbumin Triglycerides Cholesterol LDL Cholesterol Direct HDL Cholesterol Urine pH Urine WBC (Auto) Urine Creatinine Urine Total Protein Fluid Total Protein Vancomycin Trough Rheumatoid Factor Complement C4 Miscellaneous Test Crossmatch 09/25/16 09/25/16 09/25/16 04:20 04:20 04:20 WBC RBC 2.58 L Hgb 7.0 L Hct 21.0 L MCV MCH 27 L MCHC RDW 23.8 H Plt Count Lymph % (Auto) [place] % (Auto) Lymph # [place] # Baso # Seg Neutrophils % Seg Neuts % (Manual) Lymphocytes % (Manual) 12.0 L Monocytes % (Manual) Eosinophils % (Manual) 7.0 H Basophils % (Manual) 2.0 H Nucleated RBC % Seg Neutrophils # Seg Neutrophils # Man Lymphocytes # (Manual) 0.9 L Monocytes # (Manual) Eosinophils # (Manual) 0.5 H Basophils # (Manual) PT INR Fibrinogen dRVVT Confirm Interp Factor V Activity POC ABG pH POC ABG pCO2 POC ABG pO2 ABG pO2 ABG HCO3 ABG Base Excess ABG Hemoglobin Oxyhemoglobin Sodium Potassium Chloride Carbon Dioxide 15 L BUN 72 H Creatinine 3.8 H Glucose POC Glucose Lactic Acid Calcium 6.0 L Phosphorus 4.60 H Magnesium 1.60 L Direct Bilirubin AST ALT Alkaline Phosphatase Lactate Dehydrogenase Troponin T C-Reactive Protein Total Protein Albumin Prealbumin Triglycerides Cholesterol LDL Cholesterol Direct HDL Cholesterol Urine pH Urine WBC (Auto) Urine Creatinine Urine Total Protein Fluid Total Protein Vancomycin Trough Rheumatoid Factor Complement C4 Miscellaneous Test Crossmatch 09/25/16 09/25/16 09/25/16 04:57 08:02 10:30 WBC RBC Hgb Hct MCV MCH MCHC RDW Plt Count Lymph % (Auto) [place] % (Auto) Lymph # [place] # Baso # Seg Neutrophils % Seg Neuts % (Manual) Lymphocytes % (Manual) Monocytes % (Manual) Eosinophils % (Manual) Basophils % (Manual) Nucleated RBC % Seg Neutrophils # Seg Neutrophils # Man Lymphocytes # (Manual) Monocytes # (Manual) Eosinophils # (Manual) Basophils # (Manual) PT INR Fibrinogen dRVVT Confirm Interp Factor V Activity POC ABG pH POC ABG pCO2 24.7 L POC ABG pO2 152 H ABG pO2 ABG HCO3 ABG Base Excess ABG Hemoglobin Oxyhemoglobin Sodium Potassium Chloride Carbon Dioxide BUN Creatinine Glucose POC Glucose 113 H Lactic Acid Calcium Phosphorus Magnesium Direct Bilirubin AST ALT Alkaline Phosphatase Lactate Dehydrogenase Troponin T C-Reactive Protein Total Protein Albumin Prealbumin Triglycerides Cholesterol LDL Cholesterol Direct HDL Cholesterol Urine pH Urine WBC (Auto) Urine Creatinine Urine Total Protein Fluid Total Protein Vancomycin Trough Rheumatoid Factor Complement C4 Miscellaneous Test Crossmatch See Detail 09/25/16 09/25/16 09/25/16 12:05 17:44 23:47 WBC RBC Hgb Hct MCV MCH MCHC RDW Plt Count Lymph % (Auto) [place] % (Auto) Lymph # [place] # Baso # Seg Neutrophils % Seg Neuts % (Manual) Lymphocytes % (Manual) Monocytes % (Manual) Eosinophils % (Manual) Basophils % (Manual) Nucleated RBC % Seg Neutrophils # Seg Neutrophils # Man Lymphocytes # (Manual) Monocytes # (Manual) Eosinophils # (Manual) Basophils # (Manual) PT INR Fibrinogen dRVVT Confirm Interp Factor V Activity POC ABG pH POC ABG pCO2 POC ABG pO2 ABG pO2 ABG HCO3 ABG Base Excess ABG Hemoglobin Oxyhemoglobin Sodium Potassium Chloride Carbon Dioxide BUN Creatinine Glucose POC Glucose 117 H 119 H 150 H Lactic Acid Calcium Phosphorus Magnesium Direct Bilirubin AST ALT Alkaline Phosphatase Lactate Dehydrogenase Troponin T C-Reactive Protein Total Protein Albumin Prealbumin Triglycerides Cholesterol LDL Cholesterol Direct HDL Cholesterol Urine pH Urine WBC (Auto) Urine Creatinine Urine Total Protein Fluid Total Protein Vancomycin Trough Rheumatoid Factor Complement C4 Miscellaneous Test Crossmatch 09/26/16 09/26/16 09/26/16 04:25 04:25 04:25 WBC RBC 2.65 L Hgb 7.4 L Hct 21.6 L MCV MCH MCHC RDW 22.5 H Plt Count Lymph % (Auto) [place] % (Auto) Lymph # [place] # Baso # Seg Neutrophils % Seg Neuts % (Manual) Lymphocytes % (Manual) 6.0 L Monocytes % (Manual) Eosinophils % (Manual) 11.0 H Basophils % (Manual) Nucleated RBC % Seg Neutrophils # Seg Neutrophils # Man Lymphocytes # (Manual) 0.4 L Monocytes # (Manual) Eosinophils # (Manual) 0.6 H Basophils # (Manual) PT INR Fibrinogen dRVVT Confirm Interp Factor V Activity POC ABG pH POC ABG pCO2 POC ABG pO2 ABG pO2 ABG HCO3 ABG Base Excess ABG Hemoglobin Oxyhemoglobin Sodium Potassium Chloride 97.0 L Carbon Dioxide 19 L BUN 43 H Creatinine 2.6 H Glucose 130 H POC Glucose Lactic Acid 4.40 H* Calcium 6.7 L Phosphorus Magnesium Direct Bilirubin AST ALT Alkaline Phosphatase Lactate Dehydrogenase Troponin T C-Reactive Protein Total Protein Albumin Prealbumin Triglycerides Cholesterol LDL Cholesterol Direct HDL Cholesterol Urine pH Urine WBC (Auto) Urine Creatinine Urine Total Protein Fluid Total Protein Vancomycin Trough Rheumatoid Factor Complement C4 Miscellaneous Test Crossmatch 09/26/16 09/26/16 09/26/16 05:20 11:44 12:12 WBC RBC Hgb Hct MCV MCH MCHC RDW Plt Count Lymph % (Auto) [place] % (Auto) Lymph # [place] # Baso # Seg Neutrophils % Seg Neuts % (Manual) Lymphocytes % (Manual) Monocytes % (Manual) Eosinophils % (Manual) Basophils % (Manual) Nucleated RBC % Seg Neutrophils # Seg Neutrophils # Man Lymphocytes # (Manual) Monocytes # (Manual) Eosinophils # (Manual) Basophils # (Manual) PT INR Fibrinogen dRVVT Confirm Interp Factor V Activity POC ABG pH POC ABG pCO2 27.0 L POC ABG pO2 69 L ABG pO2 ABG HCO3 ABG Base Excess ABG Hemoglobin Oxyhemoglobin Sodium Potassium Chloride Carbon Dioxide BUN Creatinine Glucose POC Glucose 121 H 128 H Lactic Acid Calcium Phosphorus Magnesium Direct Bilirubin AST ALT Alkaline Phosphatase Lactate Dehydrogenase Troponin T C-Reactive Protein Total Protein Albumin Prealbumin Triglycerides Cholesterol LDL Cholesterol Direct HDL Cholesterol Urine pH Urine WBC (Auto) Urine Creatinine Urine Total Protein Fluid Total Protein Vancomycin Trough Rheumatoid Factor Complement C4 Miscellaneous Test Crossmatch 09/26/16 09/26/16 09/27/16 18:31 23:40 08:20 WBC RBC Hgb Hct MCV MCH MCHC RDW Plt Count Lymph % (Auto) [place] % (Auto) Lymph # [place] # Baso # Seg Neutrophils % Seg Neuts % (Manual) Lymphocytes % (Manual) Monocytes % (Manual) Eosinophils % (Manual) Basophils % (Manual) Nucleated RBC % Seg Neutrophils # Seg Neutrophils # Man Lymphocytes # (Manual) Monocytes # (Manual) Eosinophils # (Manual) Basophils # (Manual) PT INR Fibrinogen dRVVT Confirm Interp Factor V Activity POC ABG pH POC ABG pCO2 POC ABG pO2 ABG pO2 ABG HCO3 ABG Base Excess ABG Hemoglobin Oxyhemoglobin Sodium Potassium Chloride Carbon Dioxide BUN Creatinine Glucose POC Glucose 120 H 133 H Lactic Acid 4.10 H* Calcium Phosphorus Magnesium Direct Bilirubin AST ALT Alkaline Phosphatase Lactate Dehydrogenase Troponin T C-Reactive Protein Total Protein Albumin Prealbumin Triglycerides Cholesterol LDL Cholesterol Direct HDL Cholesterol Urine pH Urine WBC (Auto) Urine Creatinine Urine Total Protein Fluid Total Protein Vancomycin Trough Rheumatoid Factor Complement C4 Miscellaneous Test Crossmatch 09/27/16 09/27/16 09/27/16 11:23 15:00 18:15 WBC RBC Hgb Hct MCV MCH MCHC RDW Plt Count Lymph % (Auto) [place] % (Auto) Lymph # [place] # Baso # Seg Neutrophils % Seg Neuts % (Manual) Lymphocytes % (Manual) Monocytes % (Manual) Eosinophils % (Manual) Basophils % (Manual) Nucleated RBC % Seg Neutrophils # Seg Neutrophils # Man Lymphocytes # (Manual) Monocytes # (Manual) Eosinophils # (Manual) Basophils # (Manual) PT INR Fibrinogen dRVVT Confirm Interp Factor V Activity POC ABG pH 7.459 H POC ABG pCO2 27.1 L POC ABG pO2 140 H ABG pO2 ABG HCO3 ABG Base Excess ABG Hemoglobin Oxyhemoglobin Sodium Potassium Chloride Carbon Dioxide BUN Creatinine Glucose POC Glucose 114 H 127 H Lactic Acid Calcium Phosphorus Magnesium Direct Bilirubin AST ALT Alkaline Phosphatase Lactate Dehydrogenase Troponin T C-Reactive Protein Total Protein Albumin Prealbumin Triglycerides Cholesterol LDL Cholesterol Direct HDL Cholesterol Urine pH Urine WBC (Auto) Urine Creatinine Urine Total Protein Fluid Total Protein Vancomycin Trough Rheumatoid Factor Complement C4 Miscellaneous Test Crossmatch 09/27/16 09/27/16 09/28/16 Unknown Unknown 03:45 WBC RBC 2.49 L Hgb 6.8 L Hct 20.7 L MCV MCH 27 L MCHC RDW 22.1 H Plt Count Lymph % (Auto) [place] % (Auto) Lymph # [place] # Baso # Seg Neutrophils % Seg Neuts % (Manual) 32.0 L Lymphocytes % (Manual) 12.0 L Monocytes % (Manual) 11.0 H Eosinophils % (Manual) 10.0 H Basophils % (Manual) Nucleated RBC % Seg Neutrophils # Seg Neutrophils # Man Lymphocytes # (Manual) 1.0 L Monocytes # (Manual) 0.9 H Eosinophils # (Manual) 0.8 H Basophils # (Manual) PT INR Fibrinogen dRVVT Confirm Interp Factor V Activity POC ABG pH POC ABG pCO2 POC ABG pO2 ABG pO2 ABG HCO3 ABG Base Excess ABG Hemoglobin Oxyhemoglobin Sodium 135 L 135 L Potassium 3.5 L Chloride 93.6 L 94.4 L Carbon Dioxide 17 L 21 L BUN 45 H 28 H Creatinine 3.3 H 2.5 H Glucose 106 H POC Glucose Lactic Acid Calcium 7.3 L 7.1 L Phosphorus Magnesium Direct Bilirubin AST ALT Alkaline Phosphatase Lactate Dehydrogenase Troponin T C-Reactive Protein Total Protein Albumin Prealbumin Triglycerides Cholesterol LDL Cholesterol Direct HDL Cholesterol Urine pH Urine WBC (Auto) Urine Creatinine Urine Total Protein Fluid Total Protein Vancomycin Trough Rheumatoid Factor Complement C4 Miscellaneous Test Crossmatch 09/28/16 09/28/16 09/28/16 03:45 07:25 11:58 WBC 13.3 H RBC 3.01 L Hgb 8.4 L Hct 25.0 L MCV MCH MCHC RDW 20.5 H Plt Count 128 L Lymph % (Auto) [place] % (Auto) Lymph # [place] # Baso # Seg Neutrophils % Seg Neuts % (Manual) Lymphocytes % (Manual) 7.0 L Monocytes % (Manual) Eosinophils % (Manual) 6.0 H Basophils % (Manual) Nucleated RBC % Seg Neutrophils # Seg Neutrophils # Man Lymphocytes # (Manual) 0.9 L Monocytes # (Manual) Eosinophils # (Manual) 0.8 H Basophils # (Manual) PT INR Fibrinogen dRVVT Confirm Interp Factor V Activity POC ABG pH POC ABG pCO2 POC ABG pO2 ABG pO2 ABG HCO3 ABG Base Excess ABG Hemoglobin Oxyhemoglobin Sodium Potassium Chloride Carbon Dioxide BUN Creatinine Glucose POC Glucose 121 H Lactic Acid 4.50 H* Calcium Phosphorus Magnesium Direct Bilirubin AST ALT Alkaline Phosphatase Lactate Dehydrogenase Troponin T C-Reactive Protein Total Protein Albumin Prealbumin Triglycerides Cholesterol LDL Cholesterol Direct HDL Cholesterol Urine pH Urine WBC (Auto) Urine Creatinine Urine Total Protein Fluid Total Protein Vancomycin Trough Rheumatoid Factor Complement C4 Miscellaneous Test Crossmatch 09/29/16 09/29/16 09/29/16 06:45 06:45 06:45 WBC 14.9 H RBC 2.74 L Hgb 7.6 L Hct 23.2 L MCV MCH MCHC RDW 20.5 H Plt Count 81 L Lymph % (Auto) [place] % (Auto) Lymph # [place] # Baso # Seg Neutrophils % Seg Neuts % (Manual) 81.0 H Lymphocytes % (Manual) 4.0 L Monocytes % (Manual) Eosinophils % (Manual) Basophils % (Manual) Nucleated RBC % Seg Neutrophils # Seg Neutrophils # Man 12.1 H Lymphocytes # (Manual) 0.6 L Monocytes # (Manual) Eosinophils # (Manual) Basophils # (Manual) PT INR Fibrinogen dRVVT Confirm Interp Factor V Activity POC ABG pH POC ABG pCO2 POC ABG pO2 ABG pO2 ABG HCO3 ABG Base Excess ABG Hemoglobin Oxyhemoglobin Sodium 133 L Potassium 3.4 L Chloride 92.5 L Carbon Dioxide 21 L BUN 33 H Creatinine 3.0 H Glucose POC Glucose Lactic Acid Calcium 6.6 L Phosphorus Magnesium 1.40 L Direct Bilirubin 0.9 H AST ALT Alkaline Phosphatase Lactate Dehydrogenase Troponin T C-Reactive Protein Total Protein 4.3 L Albumin 1.3 L Prealbumin Triglycerides Cholesterol LDL Cholesterol Direct HDL Cholesterol Urine pH Urine WBC (Auto) Urine Creatinine Urine Total Protein Fluid Total Protein Vancomycin Trough Rheumatoid Factor Complement C4 Miscellaneous Test Crossmatch 09/29/16 09/29/16 09/30/16 17:52 20:12 00:07 WBC RBC Hgb Hct MCV MCH MCHC RDW Plt Count Lymph % (Auto) [place] % (Auto) Lymph # [place] # Baso # Seg Neutrophils % Seg Neuts % (Manual) Lymphocytes % (Manual) Monocytes % (Manual) Eosinophils % (Manual) Basophils % (Manual) Nucleated RBC % Seg Neutrophils # Seg Neutrophils # Man Lymphocytes # (Manual) Monocytes # (Manual) Eosinophils # (Manual) Basophils # (Manual) PT INR Fibrinogen dRVVT Confirm Interp Factor V Activity POC ABG pH POC ABG pCO2 POC ABG pO2 ABG pO2 ABG HCO3 ABG Base Excess ABG Hemoglobin Oxyhemoglobin Sodium Potassium Chloride Carbon Dioxide BUN Creatinine Glucose POC Glucose 50 L 51 L Lactic Acid Calcium Phosphorus Magnesium Direct Bilirubin AST ALT Alkaline Phosphatase Lactate Dehydrogenase Troponin T 0.204 H* C-Reactive Protein Total Protein Albumin Prealbumin Triglycerides Cholesterol 31 L LDL Cholesterol Direct 4 L HDL Cholesterol 3 L Urine pH Urine WBC (Auto) Urine Creatinine Urine Total Protein Fluid Total Protein Vancomycin Trough Rheumatoid Factor Complement C4 Miscellaneous Test Crossmatch 09/30/16 09/30/16 09/30/16 01:30 05:15 06:10 WBC RBC Hgb Hct MCV MCH MCHC RDW Plt Count Lymph % (Auto) [place] % (Auto) Lymph # [place] # Baso # Seg Neutrophils % Seg Neuts % (Manual) Lymphocytes % (Manual) Monocytes % (Manual) Eosinophils % (Manual) Basophils % (Manual) Nucleated RBC % Seg Neutrophils # Seg Neutrophils # Man Lymphocytes # (Manual) Monocytes # (Manual) Eosinophils # (Manual) Basophils # (Manual) PT INR Fibrinogen dRVVT Confirm Interp Factor V Activity POC ABG pH POC ABG pCO2 POC ABG pO2 ABG pO2 ABG HCO3 ABG Base Excess ABG Hemoglobin Oxyhemoglobin Sodium 133 L Potassium 3.2 L Chloride 93.2 L Carbon Dioxide 19 L BUN 36 H Creatinine 3.2 H Glucose 104 H POC Glucose 167 H 146 H Lactic Acid Calcium 6.4 L Phosphorus Magnesium 1.60 L Direct Bilirubin AST ALT Alkaline Phosphatase Lactate Dehydrogenase Troponin T C-Reactive Protein Total Protein Albumin Prealbumin Triglycerides Cholesterol LDL Cholesterol Direct HDL Cholesterol Urine pH Urine WBC (Auto) Urine Creatinine Urine Total Protein Fluid Total Protein Vancomycin Trough Rheumatoid Factor Complement C4 Miscellaneous Test Crossmatch 09/30/16 09/30/16 09/30/16 11:26 13:39 18:38 WBC RBC Hgb Hct MCV MCH MCHC RDW Plt Count Lymph % (Auto) [place] % (Auto) Lymph # [place] # Baso # Seg Neutrophils % Seg Neuts % (Manual) Lymphocytes % (Manual) Monocytes % (Manual) Eosinophils % (Manual) Basophils % (Manual) Nucleated RBC % Seg Neutrophils # Seg Neutrophils # Man Lymphocytes # (Manual) Monocytes # (Manual) Eosinophils # (Manual) Basophils # (Manual) PT INR Fibrinogen dRVVT Confirm Interp Factor V Activity POC ABG pH 7.479 H POC ABG pCO2 29.8 L POC ABG pO2 117 H ABG pO2 ABG HCO3 ABG Base Excess ABG Hemoglobin Oxyhemoglobin Sodium Potassium Chloride Carbon Dioxide BUN Creatinine Glucose POC Glucose 140 H 122 H Lactic Acid Calcium Phosphorus Magnesium Direct Bilirubin AST ALT Alkaline Phosphatase Lactate Dehydrogenase Troponin T C-Reactive Protein Total Protein Albumin Prealbumin Triglycerides Cholesterol LDL Cholesterol Direct HDL Cholesterol Urine pH Urine WBC (Auto) Urine Creatinine Urine Total Protein Fluid Total Protein Vancomycin Trough Rheumatoid Factor Complement C4 Miscellaneous Test Crossmatch 10/01/16 10/01/16 10/01/16 06:00 06:00 12:37 WBC 12.6 H RBC 2.75 L Hgb 7.3 L Hct 23.3 L MCV MCH 27 L MCHC RDW 20.6 H Plt Count 72 L Lymph % (Auto) [place] % (Auto) Lymph # [place] # Baso # Seg Neutrophils % Seg Neuts % (Manual) 31.0 L Lymphocytes % (Manual) 8.0 L Monocytes % (Manual) Eosinophils % (Manual) Basophils % (Manual) Nucleated RBC % 3.0 H Seg Neutrophils # Seg Neutrophils # Man Lymphocytes # (Manual) 1.0 L Monocytes # (Manual) Eosinophils # (Manual) Basophils # (Manual) PT INR Fibrinogen dRVVT Confirm Interp Factor V Activity POC ABG pH POC ABG pCO2 POC ABG pO2 ABG pO2 ABG HCO3 ABG Base Excess ABG Hemoglobin Oxyhemoglobin Sodium 127 L Potassium Chloride 86.8 L Carbon Dioxide 20 L BUN 42 H Creatinine 3.5 H Glucose POC Glucose 65 L Lactic Acid Calcium 7.0 L Phosphorus Magnesium Direct Bilirubin AST ALT Alkaline Phosphatase Lactate Dehydrogenase Troponin T C-Reactive Protein Total Protein Albumin Prealbumin Triglycerides Cholesterol LDL Cholesterol Direct HDL Cholesterol Urine pH Urine WBC (Auto) Urine Creatinine Urine Total Protein Fluid Total Protein Vancomycin Trough Rheumatoid Factor Complement C4 Miscellaneous Test Crossmatch 10/01/16 10/01/16 10/02/16 17:39 23:32 00:59 WBC RBC Hgb Hct MCV MCH MCHC RDW Plt Count Lymph % (Auto) [place] % (Auto) Lymph # [place] # Baso # Seg Neutrophils % Seg Neuts % (Manual) Lymphocytes % (Manual) Monocytes % (Manual) Eosinophils % (Manual) Basophils % (Manual) Nucleated RBC % Seg Neutrophils # Seg Neutrophils # Man Lymphocytes # (Manual) Monocytes # (Manual) Eosinophils # (Manual) Basophils # (Manual) PT INR Fibrinogen dRVVT Confirm Interp Factor V Activity POC ABG pH POC ABG pCO2 POC ABG pO2 ABG pO2 ABG HCO3 ABG Base Excess ABG Hemoglobin Oxyhemoglobin Sodium Potassium Chloride Carbon Dioxide BUN Creatinine Glucose POC Glucose 107 H 52 L 145 H Lactic Acid Calcium Phosphorus Magnesium Direct Bilirubin AST ALT Alkaline Phosphatase Lactate Dehydrogenase Troponin T C-Reactive Protein Total Protein Albumin Prealbumin Triglycerides Cholesterol LDL Cholesterol Direct HDL Cholesterol Urine pH Urine WBC (Auto) Urine Creatinine Urine Total Protein Fluid Total Protein Vancomycin Trough Rheumatoid Factor Complement C4 Miscellaneous Test Crossmatch 10/02/16 10/02/16 10/02/16 10:30 10:50 10:50 WBC 14.7 H RBC 2.76 L Hgb 7.4 L Hct 23.6 L MCV MCH 27 L MCHC RDW 20.2 H Plt Count 79 L Lymph % (Auto) [place] % (Auto) Lymph # [place] # Baso # Seg Neutrophils % Seg Neuts % (Manual) 86.0 H Lymphocytes % (Manual) 6.0 L Monocytes % (Manual) Eosinophils % (Manual) Basophils % (Manual) Nucleated RBC % Seg Neutrophils # Seg Neutrophils # Man 12.6 H Lymphocytes # (Manual) 0.9 L Monocytes # (Manual) Eosinophils # (Manual) Basophils # (Manual) PT INR Fibrinogen dRVVT Confirm Interp Factor V Activity POC ABG pH 7.486 H POC ABG pCO2 30.1 L POC ABG pO2 108 H ABG pO2 ABG HCO3 ABG Base Excess ABG Hemoglobin Oxyhemoglobin Sodium 131 L Potassium 3.4 L Chloride 89.9 L Carbon Dioxide BUN 26 H Creatinine 2.6 H Glucose POC Glucose Lactic Acid Calcium 7.0 L Phosphorus Magnesium Direct Bilirubin AST ALT Alkaline Phosphatase Lactate Dehydrogenase Troponin T C-Reactive Protein Total Protein Albumin Prealbumin Triglycerides Cholesterol LDL Cholesterol Direct HDL Cholesterol Urine pH Urine WBC (Auto) Urine Creatinine Urine Total Protein Fluid Total Protein Vancomycin Trough Rheumatoid Factor Complement C4 Miscellaneous Test Crossmatch 10/02/16 10/03/16 10/03/16 23:45 00:45 05:10 WBC 12.9 H RBC 2.77 L Hgb 7.6 L Hct 23.7 L MCV MCH 27 L MCHC RDW 19.7 H Plt Count 89 L Lymph % (Auto) [place] % (Auto) Lymph # [place] # Baso # Seg Neutrophils % Seg Neuts % (Manual) Lymphocytes % (Manual) 8.0 L Monocytes % (Manual) Eosinophils % (Manual) Basophils % (Manual) Nucleated RBC % Seg Neutrophils # 11.9 H Seg Neutrophils # Man Lymphocytes # (Manual) 1.0 L Monocytes # (Manual) Eosinophils # (Manual) Basophils # (Manual) PT INR Fibrinogen dRVVT Confirm Interp Factor V Activity POC ABG pH POC ABG pCO2 POC ABG pO2 ABG pO2 ABG HCO3 ABG Base Excess ABG Hemoglobin Oxyhemoglobin Sodium Potassium Chloride Carbon Dioxide BUN Creatinine Glucose POC Glucose 55 L 199 H Lactic Acid Calcium Phosphorus Magnesium Direct Bilirubin AST ALT Alkaline Phosphatase Lactate Dehydrogenase Troponin T C-Reactive Protein Total Protein Albumin Prealbumin Triglycerides Cholesterol LDL Cholesterol Direct HDL Cholesterol Urine pH Urine WBC (Auto) Urine Creatinine Urine Total Protein Fluid Total Protein Vancomycin Trough Rheumatoid Factor Complement C4 Miscellaneous Test Crossmatch 10/03/16 10/03/16 10/03/16 05:10 12:14 13:18 WBC RBC Hgb Hct MCV MCH MCHC RDW Plt Count Lymph % (Auto) [place] % (Auto) Lymph # [place] # Baso # Seg Neutrophils % Seg Neuts % (Manual) Lymphocytes % (Manual) Monocytes % (Manual) Eosinophils % (Manual) Basophils % (Manual) Nucleated RBC % Seg Neutrophils # Seg Neutrophils # Man Lymphocytes # (Manual) Monocytes # (Manual) Eosinophils # (Manual) Basophils # (Manual) PT INR Fibrinogen dRVVT Confirm Interp Factor V Activity POC ABG pH POC ABG pCO2 POC ABG pO2 ABG pO2 ABG HCO3 ABG Base Excess ABG Hemoglobin Oxyhemoglobin Sodium 129 L Potassium 3.3 L Chloride 88.8 L Carbon Dioxide 20 L BUN 29 H Creatinine 2.8 H Glucose POC Glucose 68 L 127 H Lactic Acid Calcium 7.2 L Phosphorus Magnesium Direct Bilirubin AST ALT Alkaline Phosphatase Lactate Dehydrogenase Troponin T C-Reactive Protein Total Protein Albumin Prealbumin Triglycerides Cholesterol LDL Cholesterol Direct HDL Cholesterol Urine pH Urine WBC (Auto) Urine Creatinine Urine Total Protein Fluid Total Protein Vancomycin Trough Rheumatoid Factor Complement C4 Miscellaneous Test Crossmatch 10/03/16 10/03/16 10/03/16 14:42 18:21 19:09 WBC RBC Hgb Hct MCV MCH MCHC RDW Plt Count Lymph % (Auto) [place] % (Auto) Lymph # [place] # Baso # Seg Neutrophils % Seg Neuts % (Manual) Lymphocytes % (Manual) Monocytes % (Manual) Eosinophils % (Manual) Basophils % (Manual) Nucleated RBC % Seg Neutrophils # Seg Neutrophils # Man Lymphocytes # (Manual) Monocytes # (Manual) Eosinophils # (Manual) Basophils # (Manual) PT INR Fibrinogen dRVVT Confirm Interp Factor V Activity POC ABG pH 7.499 H POC ABG pCO2 28.4 L POC ABG pO2 44 L ABG pO2 ABG HCO3 ABG Base Excess ABG Hemoglobin Oxyhemoglobin Sodium Potassium Chloride Carbon Dioxide BUN Creatinine Glucose POC Glucose 64 L 205 H Lactic Acid Calcium Phosphorus Magnesium Direct Bilirubin AST ALT Alkaline Phosphatase Lactate Dehydrogenase Troponin T C-Reactive Protein Total Protein Albumin Prealbumin Triglycerides Cholesterol LDL Cholesterol Direct HDL Cholesterol Urine pH Urine WBC (Auto) Urine Creatinine Urine Total Protein Fluid Total Protein Vancomycin Trough Rheumatoid Factor Complement C4 Miscellaneous Test Crossmatch 10/03/16 10/04/16 10/04/16 23:33 04:18 06:30 WBC RBC 2.54 L Hgb 7.1 L Hct 21.7 L MCV MCH MCHC RDW 19.5 H Plt Count 76 L Lymph % (Auto) [place] % (Auto) Lymph # [place] # Baso # Seg Neutrophils % Seg Neuts % (Manual) 88.0 H Lymphocytes % (Manual) 6.0 L Monocytes % (Manual) Eosinophils % (Manual) Basophils % (Manual) Nucleated RBC % Seg Neutrophils # Seg Neutrophils # Man 8.8 H Lymphocytes # (Manual) 0.6 L Monocytes # (Manual) Eosinophils # (Manual) Basophils # (Manual) PT INR Fibrinogen dRVVT Confirm Interp Factor V Activity POC ABG pH 7.461 H POC ABG pCO2 33.6 L POC ABG pO2 211 H ABG pO2 ABG HCO3 ABG Base Excess ABG Hemoglobin Oxyhemoglobin Sodium Potassium Chloride Carbon Dioxide BUN Creatinine Glucose POC Glucose 136 H Lactic Acid Calcium Phosphorus Magnesium Direct Bilirubin AST ALT Alkaline Phosphatase Lactate Dehydrogenase Troponin T C-Reactive Protein Total Protein Albumin Prealbumin Triglycerides Cholesterol LDL Cholesterol Direct HDL Cholesterol Urine pH Urine WBC (Auto) Urine Creatinine Urine Total Protein Fluid Total Protein Vancomycin Trough Rheumatoid Factor Complement C4 Miscellaneous Test Crossmatch 10/04/16 10/04/16 10/04/16 06:30 11:45 17:54 WBC RBC Hgb Hct MCV MCH MCHC RDW Plt Count Lymph % (Auto) [place] % (Auto) Lymph # [place] # Baso # Seg Neutrophils % Seg Neuts % (Manual) Lymphocytes % (Manual) Monocytes % (Manual) Eosinophils % (Manual) Basophils % (Manual) Nucleated RBC % Seg Neutrophils # Seg Neutrophils # Man Lymphocytes # (Manual) Monocytes # (Manual) Eosinophils # (Manual) Basophils # (Manual) PT INR Fibrinogen dRVVT Confirm Interp Factor V Activity POC ABG pH POC ABG pCO2 POC ABG pO2 ABG pO2 ABG HCO3 ABG Base Excess ABG Hemoglobin Oxyhemoglobin Sodium 128 L Potassium Chloride 87.4 L Carbon Dioxide 20 L BUN 34 H Creatinine 2.9 H Glucose 127 H POC Glucose 158 H 160 H Lactic Acid Calcium 7.4 L Phosphorus Magnesium Direct Bilirubin AST ALT Alkaline Phosphatase Lactate Dehydrogenase Troponin T C-Reactive Protein Total Protein Albumin Prealbumin Triglycerides Cholesterol LDL Cholesterol Direct HDL Cholesterol Urine pH Urine WBC (Auto) Urine Creatinine Urine Total Protein Fluid Total Protein Vancomycin Trough Rheumatoid Factor Complement C4 Miscellaneous Test Crossmatch 10/04/16 10/05/16 10/05/16 23:25 04:30 05:00 WBC RBC 2.64 L Hgb 7.5 L Hct 22.6 L MCV MCH MCHC RDW 19.3 H Plt Count 80 L Lymph % (Auto) [place] % (Auto) Lymph # [place] # Baso # Seg Neutrophils % Seg Neuts % (Manual) Lymphocytes % (Manual) 12.0 L Monocytes % (Manual) Eosinophils % (Manual) Basophils % (Manual) Nucleated RBC % Seg Neutrophils # Seg Neutrophils # Man Lymphocytes # (Manual) Monocytes # (Manual) Eosinophils # (Manual) Basophils # (Manual) PT INR Fibrinogen dRVVT Confirm Interp Factor V Activity POC ABG pH 7.475 H POC ABG pCO2 33.3 L POC ABG pO2 140 H ABG pO2 ABG HCO3 ABG Base Excess ABG Hemoglobin Oxyhemoglobin Sodium Potassium Chloride Carbon Dioxide BUN Creatinine Glucose POC Glucose 141 H Lactic Acid Calcium Phosphorus Magnesium Direct Bilirubin AST ALT Alkaline Phosphatase Lactate Dehydrogenase Troponin T C-Reactive Protein Total Protein Albumin Prealbumin Triglycerides Cholesterol LDL Cholesterol Direct HDL Cholesterol Urine pH Urine WBC (Auto) Urine Creatinine Urine Total Protein Fluid Total Protein Vancomycin Trough Rheumatoid Factor Complement C4 Miscellaneous Test Crossmatch 10/05/16 10/05/16 10/05/16 05:00 05:09 12:58 WBC RBC Hgb Hct MCV MCH MCHC RDW Plt Count Lymph % (Auto) [place] % (Auto) Lymph # [place] # Baso # Seg Neutrophils % Seg Neuts % (Manual) Lymphocytes % (Manual) Monocytes % (Manual) Eosinophils % (Manual) Basophils % (Manual) Nucleated RBC % Seg Neutrophils # Seg Neutrophils # Man Lymphocytes # (Manual) Monocytes # (Manual) Eosinophils # (Manual) Basophils # (Manual) PT INR Fibrinogen dRVVT Confirm Interp Factor V Activity POC ABG pH POC ABG pCO2 POC ABG pO2 ABG pO2 ABG HCO3 ABG Base Excess ABG Hemoglobin Oxyhemoglobin Sodium 131 L Potassium Chloride 94.0 L Carbon Dioxide 20 L BUN 22 H Creatinine 2.0 H Glucose 123 H POC Glucose 166 H 179 H Lactic Acid Calcium 7.7 L Phosphorus 2.20 L D Magnesium Direct Bilirubin AST ALT Alkaline Phosphatase Lactate Dehydrogenase Troponin T C-Reactive Protein Total Protein Albumin Prealbumin Triglycerides Cholesterol LDL Cholesterol Direct HDL Cholesterol Urine pH Urine WBC (Auto) Urine Creatinine Urine Total Protein Fluid Total Protein Vancomycin Trough Rheumatoid Factor Complement C4 Miscellaneous Test Crossmatch 10/05/16 10/05/16 10/05/16 15:50 18:53 23:12 WBC RBC Hgb Hct MCV MCH MCHC RDW Plt Count Lymph % (Auto) [place] % (Auto) Lymph # [place] # Baso # Seg Neutrophils % Seg Neuts % (Manual) Lymphocytes % (Manual) Monocytes % (Manual) Eosinophils % (Manual) Basophils % (Manual) Nucleated RBC % Seg Neutrophils # Seg Neutrophils # Man Lymphocytes # (Manual) Monocytes # (Manual) Eosinophils # (Manual) Basophils # (Manual) PT INR Fibrinogen dRVVT Confirm Interp Factor V Activity POC ABG pH POC ABG pCO2 POC ABG pO2 ABG pO2 ABG HCO3 ABG Base Excess ABG Hemoglobin Oxyhemoglobin Sodium Potassium Chloride Carbon Dioxide BUN Creatinine Glucose POC Glucose 150 H 164 H Lactic Acid Calcium Phosphorus Magnesium Direct Bilirubin AST ALT Alkaline Phosphatase Lactate Dehydrogenase Troponin T C-Reactive Protein Total Protein Albumin Prealbumin Triglycerides Cholesterol LDL Cholesterol Direct HDL Cholesterol Urine pH Urine WBC (Auto) Urine Creatinine Urine Total Protein Fluid Total Protein Vancomycin Trough Rheumatoid Factor Complement C4 Miscellaneous Test Crossmatch See Detail 10/06/16 10/06/16 10/06/16 03:50 03:50 04:53 WBC RBC 3.00 L Hgb 8.6 L Hct 25.8 L MCV MCH MCHC RDW 17.9 H Plt Count 65 L Lymph % (Auto) [place] % (Auto) Lymph # [place] # Baso # Seg Neutrophils % Seg Neuts % (Manual) 30.0 L Lymphocytes % (Manual) 5.0 L Monocytes % (Manual) Eosinophils % (Manual) Basophils % (Manual) Nucleated RBC % Seg Neutrophils # Seg Neutrophils # Man Lymphocytes # (Manual) 0.4 L Monocytes # (Manual) Eosinophils # (Manual) Basophils # (Manual) PT INR Fibrinogen dRVVT Confirm Interp Factor V Activity POC ABG pH 7.310 L POC ABG pCO2 49.0 H POC ABG pO2 ABG pO2 ABG HCO3 ABG Base Excess ABG Hemoglobin Oxyhemoglobin Sodium 133 L Potassium Chloride 95.9 L Carbon Dioxide BUN 26 H Creatinine 2.0 H Glucose 116 H POC Glucose Lactic Acid Calcium 7.8 L Phosphorus Magnesium Direct Bilirubin AST ALT Alkaline Phosphatase Lactate Dehydrogenase Troponin T C-Reactive Protein Total Protein Albumin Prealbumin Triglycerides Cholesterol LDL Cholesterol Direct HDL Cholesterol Urine pH Urine WBC (Auto) Urine Creatinine Urine Total Protein Fluid Total Protein Vancomycin Trough Rheumatoid Factor Complement C4 Miscellaneous Test Crossmatch 10/06/16 10/06/16 10/06/16 05:23 11:52 18:34 WBC RBC Hgb Hct MCV MCH MCHC RDW Plt Count Lymph % (Auto) [place] % (Auto) Lymph # [place] # Baso # Seg Neutrophils % Seg Neuts % (Manual) Lymphocytes % (Manual) Monocytes % (Manual) Eosinophils % (Manual) Basophils % (Manual) Nucleated RBC % Seg Neutrophils # Seg Neutrophils # Man Lymphocytes # (Manual) Monocytes # (Manual) Eosinophils # (Manual) Basophils # (Manual) PT INR Fibrinogen dRVVT Confirm Interp Factor V Activity POC ABG pH POC ABG pCO2 POC ABG pO2 ABG pO2 ABG HCO3 ABG Base Excess ABG Hemoglobin Oxyhemoglobin Sodium Potassium Chloride Carbon Dioxide BUN Creatinine Glucose POC Glucose 126 H 116 H 129 H Lactic Acid Calcium Phosphorus Magnesium Direct Bilirubin AST ALT Alkaline Phosphatase Lactate Dehydrogenase Troponin T C-Reactive Protein Total Protein Albumin Prealbumin Triglycerides Cholesterol LDL Cholesterol Direct HDL Cholesterol Urine pH Urine WBC (Auto) Urine Creatinine Urine Total Protein Fluid Total Protein Vancomycin Trough Rheumatoid Factor Complement C4 Miscellaneous Test Crossmatch 10/07/16 10/07/16 10/07/16 03:45 05:00 10:00 WBC 17.0 H RBC 2.68 L Hgb 7.3 L Hct 25.3 L MCV MCH 27 L MCHC 29 L RDW 19.6 H Plt Count 74 L Lymph % (Auto) [place] % (Auto) Lymph # [place] # Baso # Seg Neutrophils % Seg Neuts % (Manual) Lymphocytes % (Manual) 12.0 L Monocytes % (Manual) Eosinophils % (Manual) Basophils % (Manual) Nucleated RBC % 4.0 H Seg Neutrophils # Seg Neutrophils # Man 10.7 H Lymphocytes # (Manual) Monocytes # (Manual) Eosinophils # (Manual) Basophils # (Manual) PT INR Fibrinogen dRVVT Confirm Interp Factor V Activity POC ABG pH POC ABG pCO2 POC ABG pO2 ABG pO2 ABG HCO3 ABG Base Excess ABG Hemoglobin Oxyhemoglobin Sodium 130 L Potassium 3.2 L Chloride 93.9 L Carbon Dioxide 20 L BUN 44 H Creatinine 2.7 H Glucose 129 H POC Glucose Lactic Acid Calcium 7.4 L Phosphorus Magnesium Direct Bilirubin AST ALT 6 L Alkaline Phosphatase 195 H Lactate Dehydrogenase Troponin T C-Reactive Protein Total Protein 4.9 L Albumin 1.0 L Prealbumin Triglycerides Cholesterol LDL Cholesterol Direct HDL Cholesterol Urine pH Urine WBC (Auto) Urine Creatinine Urine Total Protein Fluid Total Protein Vancomycin Trough Rheumatoid Factor Complement C4 Miscellaneous Test Flexitest 1 H Crossmatch 10/07/16 10/07/16 10/07/16 10:00 11:24 18:10 WBC RBC Hgb Hct MCV MCH MCHC RDW Plt Count Lymph % (Auto) [place] % (Auto) Lymph # [place] # Baso # Seg Neutrophils % Seg Neuts % (Manual) Lymphocytes % (Manual) Monocytes % (Manual) Eosinophils % (Manual) Basophils % (Manual) Nucleated RBC % Seg Neutrophils # Seg Neutrophils # Man Lymphocytes # (Manual) Monocytes # (Manual) Eosinophils # (Manual) Basophils # (Manual) PT INR Fibrinogen dRVVT Confirm Interp Factor V Activity POC ABG pH POC ABG pCO2 POC ABG pO2 ABG pO2 ABG HCO3 ABG Base Excess ABG Hemoglobin Oxyhemoglobin Sodium Potassium Chloride Carbon Dioxide BUN Creatinine Glucose POC Glucose 116 H 130 H Lactic Acid Calcium Phosphorus Magnesium Direct Bilirubin AST ALT Alkaline Phosphatase Lactate Dehydrogenase Troponin T C-Reactive Protein 19.40 H Total Protein Albumin Prealbumin Triglycerides Cholesterol LDL Cholesterol Direct HDL Cholesterol Urine pH Urine WBC (Auto) Urine Creatinine Urine Total Protein Fluid Total Protein Vancomycin Trough Rheumatoid Factor Complement C4 Miscellaneous Test Crossmatch 10/07/16 10/08/16 10/08/16 18:30 00:00 04:00 WBC RBC Hgb Hct MCV MCH MCHC RDW Plt Count Lymph % (Auto) [place] % (Auto) Lymph # [place] # Baso # Seg Neutrophils % Seg Neuts % (Manual) Lymphocytes % (Manual) Monocytes % (Manual) Eosinophils % (Manual) Basophils % (Manual) Nucleated RBC % Seg Neutrophils # Seg Neutrophils # Man Lymphocytes # (Manual) Monocytes # (Manual) Eosinophils # (Manual) Basophils # (Manual) PT INR Fibrinogen dRVVT Confirm Interp Factor V Activity POC ABG pH POC ABG pCO2 POC ABG pO2 ABG pO2 ABG HCO3 ABG Base Excess ABG Hemoglobin Oxyhemoglobin Sodium 132 L Potassium 3.3 L Chloride 93.6 L Carbon Dioxide 17 L BUN 59 H Creatinine 2.7 H Glucose 121 H POC Glucose 122 H Lactic Acid Calcium 7.6 L Phosphorus Magnesium Direct Bilirubin AST ALT Alkaline Phosphatase Lactate Dehydrogenase Troponin T C-Reactive Protein Total Protein Albumin Prealbumin Triglycerides Cholesterol LDL Cholesterol Direct HDL Cholesterol Urine pH Urine WBC (Auto) > 182.0 H Urine Creatinine Urine Total Protein Fluid Total Protein Vancomycin Trough Rheumatoid Factor Complement C4 Miscellaneous Test Crossmatch 10/08/16 10/08/16 10/08/16 04:30 05:30 11:51 WBC RBC 5.15 H Hgb 14.4 H D Hct 44.5 H D MCV MCH MCHC RDW 19.5 H Plt Count 56 L Lymph % (Auto) [place] % (Auto) Lymph # [place] # Baso # Seg Neutrophils % Seg Neuts % (Manual) 24.0 L Lymphocytes % (Manual) 8.0 L Monocytes % (Manual) Eosinophils % (Manual) Basophils % (Manual) Nucleated RBC % 9.0 H Seg Neutrophils # Seg Neutrophils # Man Lymphocytes # (Manual) 0.7 L Monocytes # (Manual) Eosinophils # (Manual) Basophils # (Manual) PT INR Fibrinogen dRVVT Confirm Interp Factor V Activity POC ABG pH POC ABG pCO2 POC ABG pO2 ABG pO2 ABG HCO3 ABG Base Excess ABG Hemoglobin Oxyhemoglobin Sodium Potassium Chloride Carbon Dioxide BUN Creatinine Glucose POC Glucose 125 H 150 H Lactic Acid Calcium Phosphorus Magnesium Direct Bilirubin AST ALT Alkaline Phosphatase Lactate Dehydrogenase Troponin T C-Reactive Protein Total Protein Albumin Prealbumin Triglycerides Cholesterol LDL Cholesterol Direct HDL Cholesterol Urine pH Urine WBC (Auto) Urine Creatinine Urine Total Protein Fluid Total Protein Vancomycin Trough Rheumatoid Factor Complement C4 Miscellaneous Test Crossmatch 10/08/16 10/08/16 10/08/16 12:49 17:07 19:30 WBC RBC Hgb 7.1 L D Hct 22.4 L D MCV MCH MCHC RDW Plt Count Lymph % (Auto) [place] % (Auto) Lymph # [place] # Baso # Seg Neutrophils % Seg Neuts % (Manual) Lymphocytes % (Manual) Monocytes % (Manual) Eosinophils % (Manual) Basophils % (Manual) Nucleated RBC % Seg Neutrophils # Seg Neutrophils # Man Lymphocytes # (Manual) Monocytes # (Manual) Eosinophils # (Manual) Basophils # (Manual) PT INR Fibrinogen dRVVT Confirm Interp Factor V Activity POC ABG pH POC ABG pCO2 28.2 L POC ABG pO2 111 H ABG pO2 ABG HCO3 ABG Base Excess ABG Hemoglobin Oxyhemoglobin Sodium Potassium Chloride Carbon Dioxide BUN Creatinine Glucose POC Glucose 145 H Lactic Acid Calcium Phosphorus Magnesium Direct Bilirubin AST ALT Alkaline Phosphatase Lactate Dehydrogenase Troponin T C-Reactive Protein Total Protein Albumin Prealbumin Triglycerides Cholesterol LDL Cholesterol Direct HDL Cholesterol Urine pH Urine WBC (Auto) Urine Creatinine Urine Total Protein Fluid Total Protein Vancomycin Trough Rheumatoid Factor Complement C4 Miscellaneous Test Crossmatch 10/08/16 10/09/16 10/09/16 19:30 03:45 03:45 WBC 12.6 H RBC 2.36 L Hgb 6.7 L Hct 21.1 L MCV MCH MCHC RDW 19.5 H Plt Count 75 L Lymph % (Auto) [place] % (Auto) Lymph # [place] # Baso # Seg Neutrophils % Seg Neuts % (Manual) Lymphocytes % (Manual) Monocytes % (Manual) 10.0 H Eosinophils % (Manual) Basophils % (Manual) Nucleated RBC % 3.0 H Seg Neutrophils # Seg Neutrophils # Man Lymphocytes # (Manual) Monocytes # (Manual) 1.3 H Eosinophils # (Manual) Basophils # (Manual) PT 18.0 H INR 1.41 H Fibrinogen dRVVT Confirm Interp Factor V Activity POC ABG pH POC ABG pCO2 POC ABG pO2 ABG pO2 ABG HCO3 ABG Base Excess ABG Hemoglobin Oxyhemoglobin Sodium 135 L Potassium Chloride Carbon Dioxide 17 L BUN 81 H Creatinine 3.2 H Glucose 109 H POC Glucose Lactic Acid Calcium 7.4 L Phosphorus 4.60 H D Magnesium Direct Bilirubin AST ALT Alkaline Phosphatase Lactate Dehydrogenase Troponin T C-Reactive Protein Total Protein Albumin Prealbumin Triglycerides Cholesterol LDL Cholesterol Direct HDL Cholesterol Urine pH Urine WBC (Auto) Urine Creatinine Urine Total Protein Fluid Total Protein Vancomycin Trough Rheumatoid Factor Complement C4 Miscellaneous Test Crossmatch 10/09/16 10/09/16 10/09/16 03:45 05:14 07:20 WBC RBC Hgb Hct MCV MCH MCHC RDW Plt Count Lymph % (Auto) [place] % (Auto) Lymph # [place] # Baso # Seg Neutrophils % Seg Neuts % (Manual) Lymphocytes % (Manual) Monocytes % (Manual) Eosinophils % (Manual) Basophils % (Manual) Nucleated RBC % Seg Neutrophils # Seg Neutrophils # Man Lymphocytes # (Manual) Monocytes # (Manual) Eosinophils # (Manual) Basophils # (Manual) PT 19.0 H INR 1.51 H Fibrinogen dRVVT Confirm Interp Factor V Activity POC ABG pH POC ABG pCO2 POC ABG pO2 ABG pO2 ABG HCO3 ABG Base Excess ABG Hemoglobin Oxyhemoglobin Sodium Potassium Chloride Carbon Dioxide BUN Creatinine Glucose POC Glucose 151 H Lactic Acid Calcium Phosphorus Magnesium Direct Bilirubin AST ALT Alkaline Phosphatase Lactate Dehydrogenase Troponin T C-Reactive Protein Total Protein Albumin Prealbumin Triglycerides Cholesterol LDL Cholesterol Direct HDL Cholesterol Urine pH Urine WBC (Auto) Urine Creatinine Urine Total Protein Fluid Total Protein Vancomycin Trough Rheumatoid Factor Complement C4 Miscellaneous Test Crossmatch See Detail 10/09/16 10/09/16 10/09/16 11:46 16:20 16:43 WBC RBC Hgb 7.2 L Hct 22.2 L MCV MCH MCHC RDW Plt Count Lymph % (Auto) [place] % (Auto) Lymph # [place] # Baso # Seg Neutrophils % Seg Neuts % (Manual) Lymphocytes % (Manual) Monocytes % (Manual) Eosinophils % (Manual) Basophils % (Manual) Nucleated RBC % Seg Neutrophils # Seg Neutrophils # Man Lymphocytes # (Manual) Monocytes # (Manual) Eosinophils # (Manual) Basophils # (Manual) PT INR Fibrinogen dRVVT Confirm Interp Factor V Activity POC ABG pH POC ABG pCO2 POC ABG pO2 ABG pO2 ABG HCO3 ABG Base Excess ABG Hemoglobin Oxyhemoglobin Sodium Potassium Chloride Carbon Dioxide BUN Creatinine Glucose POC Glucose 133 H 141 H Lactic Acid Calcium Phosphorus Magnesium Direct Bilirubin AST ALT Alkaline Phosphatase Lactate Dehydrogenase Troponin T C-Reactive Protein Total Protein Albumin Prealbumin Triglycerides Cholesterol LDL Cholesterol Direct HDL Cholesterol Urine pH Urine WBC (Auto) Urine Creatinine Urine Total Protein Fluid Total Protein Vancomycin Trough Rheumatoid Factor Complement C4 Miscellaneous Test Crossmatch 10/10/16 10/10/16 10/10/16 05:00 05:00 11:19 WBC 18.5 H RBC 2.19 L Hgb 6.4 L Hct 19.6 L* MCV MCH MCHC RDW 19.3 H Plt Count 93 L Lymph % (Auto) [place] % (Auto) Lymph # [place] # Baso # Seg Neutrophils % Seg Neuts % (Manual) Lymphocytes % (Manual) 10.0 L Monocytes % (Manual) Eosinophils % (Manual) Basophils % (Manual) Nucleated RBC % 4.0 H Seg Neutrophils # Seg Neutrophils # Man 11.3 H Lymphocytes # (Manual) Monocytes # (Manual) Eosinophils # (Manual) Basophils # (Manual) PT INR Fibrinogen dRVVT Confirm Interp Factor V Activity POC ABG pH POC ABG pCO2 POC ABG pO2 ABG pO2 ABG HCO3 ABG Base Excess ABG Hemoglobin Oxyhemoglobin Sodium Potassium 5.7 H D Chloride Carbon Dioxide 16 L BUN 94 H Creatinine 3.1 H Glucose 131 H POC Glucose 153 H Lactic Acid Calcium 8.2 L Phosphorus 5.10 H Magnesium 2.40 H Direct Bilirubin 0.3 H AST ALT < 5 L Alkaline Phosphatase 319 H Lactate Dehydrogenase Troponin T C-Reactive Protein Total Protein 5.1 L Albumin 1.0 L Prealbumin Triglycerides Cholesterol LDL Cholesterol Direct HDL Cholesterol Urine pH Urine WBC (Auto) Urine Creatinine Urine Total Protein Fluid Total Protein Vancomycin Trough Rheumatoid Factor Complement C4 Miscellaneous Test Crossmatch 10/10/16 10/10/16 10/11/16 17:50 23:30 04:15 WBC RBC Hgb Hct MCV MCH MCHC RDW Plt Count Lymph % (Auto) [place] % (Auto) Lymph # [place] # Baso # Seg Neutrophils % Seg Neuts % (Manual) Lymphocytes % (Manual) Monocytes % (Manual) Eosinophils % (Manual) Basophils % (Manual) Nucleated RBC % Seg Neutrophils # Seg Neutrophils # Man Lymphocytes # (Manual) Monocytes # (Manual) Eosinophils # (Manual) Basophils # (Manual) PT INR Fibrinogen dRVVT Confirm Interp Factor V Activity POC ABG pH POC ABG pCO2 POC ABG pO2 ABG pO2 ABG HCO3 ABG Base Excess ABG Hemoglobin Oxyhemoglobin Sodium Potassium Chloride 96.4 L Carbon Dioxide 21 L BUN 57 H Creatinine 2.1 H Glucose 151 H POC Glucose 146 H 141 H Lactic Acid Calcium 8.3 L Phosphorus Magnesium Direct Bilirubin AST ALT Alkaline Phosphatase Lactate Dehydrogenase Troponin T C-Reactive Protein Total Protein Albumin Prealbumin Triglycerides Cholesterol LDL Cholesterol Direct HDL Cholesterol Urine pH Urine WBC (Auto) Urine Creatinine Urine Total Protein Fluid Total Protein Vancomycin Trough Rheumatoid Factor Complement C4 Miscellaneous Test Crossmatch 10/11/16 10/11/16 10/11/16 04:15 04:15 05:30 WBC 28.3 H RBC 3.12 L Hgb 9.3 L Hct 28.7 L D MCV MCH MCHC RDW 17.7 H Plt Count 128 L Lymph % (Auto) [place] % (Auto) Lymph # [place] # Baso # Seg Neutrophils % Seg Neuts % (Manual) Lymphocytes % (Manual) Monocytes % (Manual) Eosinophils % (Manual) Basophils % (Manual) Nucleated RBC % Seg Neutrophils # Seg Neutrophils # Man Lymphocytes # (Manual) Monocytes # (Manual) Eosinophils # (Manual) Basophils # (Manual) PT INR Fibrinogen dRVVT Confirm Interp Factor V Activity POC ABG pH POC ABG pCO2 POC ABG pO2 ABG pO2 ABG HCO3 ABG Base Excess ABG Hemoglobin Oxyhemoglobin Sodium Potassium Chloride Carbon Dioxide BUN Creatinine Glucose POC Glucose 167 H Lactic Acid Calcium Phosphorus Magnesium Direct Bilirubin AST ALT Alkaline Phosphatase Lactate Dehydrogenase Troponin T C-Reactive Protein 15.80 H Total Protein Albumin Prealbumin Triglycerides Cholesterol LDL Cholesterol Direct HDL Cholesterol Urine pH Urine WBC (Auto) Urine Creatinine Urine Total Protein Fluid Total Protein Vancomycin Trough Rheumatoid Factor Complement C4 Miscellaneous Test Crossmatch 10/11/16 10/11/16 10/11/16 11:40 15:49 23:57 WBC RBC Hgb Hct MCV MCH MCHC RDW Plt Count Lymph % (Auto) [place] % (Auto) Lymph # [place] # Baso # Seg Neutrophils % Seg Neuts % (Manual) Lymphocytes % (Manual) Monocytes % (Manual) Eosinophils % (Manual) Basophils % (Manual) Nucleated RBC % Seg Neutrophils # Seg Neutrophils # Man Lymphocytes # (Manual) Monocytes # (Manual) Eosinophils # (Manual) Basophils # (Manual) PT INR Fibrinogen dRVVT Confirm Interp Factor V Activity POC ABG pH POC ABG pCO2 POC ABG pO2 ABG pO2 ABG HCO3 ABG Base Excess ABG Hemoglobin Oxyhemoglobin Sodium Potassium Chloride Carbon Dioxide BUN Creatinine Glucose POC Glucose 139 H 168 H 161 H Lactic Acid Calcium Phosphorus Magnesium Direct Bilirubin AST ALT Alkaline Phosphatase Lactate Dehydrogenase Troponin T C-Reactive Protein Total Protein Albumin Prealbumin Triglycerides Cholesterol LDL Cholesterol Direct HDL Cholesterol Urine pH Urine WBC (Auto) Urine Creatinine Urine Total Protein Fluid Total Protein Vancomycin Trough Rheumatoid Factor Complement C4 Miscellaneous Test Crossmatch 10/12/16 10/12/16 10/12/16 04:40 04:40 05:44 WBC 22.5 H RBC 2.88 L Hgb 8.8 L Hct 26.8 L MCV MCH MCHC RDW 17.8 H Plt Count Lymph % (Auto) [place] % (Auto) Lymph # [place] # Baso # Seg Neutrophils % Seg Neuts % (Manual) Lymphocytes % (Manual) Monocytes % (Manual) Eosinophils % (Manual) Basophils % (Manual) Nucleated RBC % Seg Neutrophils # Seg Neutrophils # Man Lymphocytes # (Manual) Monocytes # (Manual) Eosinophils # (Manual) Basophils # (Manual) PT INR Fibrinogen dRVVT Confirm Interp Factor V Activity POC ABG pH POC ABG pCO2 POC ABG pO2 ABG pO2 ABG HCO3 ABG Base Excess ABG Hemoglobin Oxyhemoglobin Sodium 134 L Potassium Chloride 93.0 L Carbon Dioxide BUN 74 H Creatinine 2.5 H Glucose 137 H POC Glucose 158 H Lactic Acid Calcium 8.2 L Phosphorus Magnesium Direct Bilirubin AST ALT Alkaline Phosphatase Lactate Dehydrogenase Troponin T C-Reactive Protein Total Protein Albumin Prealbumin Triglycerides Cholesterol LDL Cholesterol Direct HDL Cholesterol Urine pH Urine WBC (Auto) Urine Creatinine Urine Total Protein Fluid Total Protein Vancomycin Trough Rheumatoid Factor Complement C4 Miscellaneous Test Crossmatch 10/12/16 10/12/16 10/12/16 12:27 18:18 23:46 WBC RBC Hgb Hct MCV MCH MCHC RDW Plt Count Lymph % (Auto) [place] % (Auto) Lymph # [place] # Baso # Seg Neutrophils % Seg Neuts % (Manual) Lymphocytes % (Manual) Monocytes % (Manual) Eosinophils % (Manual) Basophils % (Manual) Nucleated RBC % Seg Neutrophils # Seg Neutrophils # Man Lymphocytes # (Manual) Monocytes # (Manual) Eosinophils # (Manual) Basophils # (Manual) PT INR Fibrinogen dRVVT Confirm Interp Factor V Activity POC ABG pH POC ABG pCO2 POC ABG pO2 ABG pO2 ABG HCO3 ABG Base Excess ABG Hemoglobin Oxyhemoglobin Sodium Potassium Chloride Carbon Dioxide BUN Creatinine Glucose POC Glucose 153 H 140 H 150 H Lactic Acid Calcium Phosphorus Magnesium Direct Bilirubin AST ALT Alkaline Phosphatase Lactate Dehydrogenase Troponin T C-Reactive Protein Total Protein Albumin Prealbumin Triglycerides Cholesterol LDL Cholesterol Direct HDL Cholesterol Urine pH Urine WBC (Auto) Urine Creatinine Urine Total Protein Fluid Total Protein Vancomycin Trough Rheumatoid Factor Complement C4 Miscellaneous Test Crossmatch 10/13/16 10/13/16 10/13/16 06:22 09:20 12:29 WBC RBC Hgb Hct MCV MCH MCHC RDW Plt Count Lymph % (Auto) [place] % (Auto) Lymph # [place] # Baso # Seg Neutrophils % Seg Neuts % (Manual) Lymphocytes % (Manual) Monocytes % (Manual) Eosinophils % (Manual) Basophils % (Manual) Nucleated RBC % Seg Neutrophils # Seg Neutrophils # Man Lymphocytes # (Manual) Monocytes # (Manual) Eosinophils # (Manual) Basophils # (Manual) PT INR Fibrinogen dRVVT Confirm Interp Factor V Activity POC ABG pH POC ABG pCO2 POC ABG pO2 ABG pO2 ABG HCO3 ABG Base Excess ABG Hemoglobin Oxyhemoglobin Sodium Potassium Chloride Carbon Dioxide BUN Creatinine Glucose POC Glucose 165 H 193 H Lactic Acid Calcium Phosphorus Magnesium Direct Bilirubin AST ALT Alkaline Phosphatase Lactate Dehydrogenase Troponin T C-Reactive Protein Total Protein Albumin Prealbumin Triglycerides Cholesterol LDL Cholesterol Direct HDL Cholesterol Urine pH Urine WBC (Auto) Urine Creatinine Urine Total Protein Fluid Total Protein Vancomycin Trough Rheumatoid Factor Complement C4 Miscellaneous Test Flexitest 1 H Crossmatch 10/13/16 10/13/16 10/13/16 18:09 Unknown Unknown WBC 23.4 H RBC 2.83 L Hgb 8.7 L Hct 26.1 L MCV MCH MCHC RDW 18.1 H Plt Count Lymph % (Auto) [place] % (Auto) Lymph # [place] # Baso # Seg Neutrophils % Seg Neuts % (Manual) Lymphocytes % (Manual) Monocytes % (Manual) Eosinophils % (Manual) Basophils % (Manual) Nucleated RBC % Seg Neutrophils # Seg Neutrophils # Man Lymphocytes # (Manual) Monocytes # (Manual) Eosinophils # (Manual) Basophils # (Manual) PT INR Fibrinogen dRVVT Confirm Interp Factor V Activity POC ABG pH POC ABG pCO2 POC ABG pO2 ABG pO2 ABG HCO3 ABG Base Excess ABG Hemoglobin Oxyhemoglobin Sodium Potassium Chloride 95.8 L Carbon Dioxide BUN 82 H Creatinine 2.6 H Glucose 152 H POC Glucose 166 H Lactic Acid Calcium Phosphorus Magnesium Direct Bilirubin AST ALT Alkaline Phosphatase Lactate Dehydrogenase Troponin T C-Reactive Protein Total Protein Albumin Prealbumin Triglycerides Cholesterol LDL Cholesterol Direct HDL Cholesterol Urine pH Urine WBC (Auto) Urine Creatinine Urine Total Protein Fluid Total Protein Vancomycin Trough Rheumatoid Factor Complement C4 Miscellaneous Test Crossmatch 10/14/16 10/14/16 10/14/16 05:38 06:35 08:10 WBC 20.7 H RBC 2.81 L Hgb 8.4 L Hct 27.2 L MCV MCH MCHC RDW 19.4 H Plt Count Lymph % (Auto) [place] % (Auto) Lymph # [place] # Baso # Seg Neutrophils % Seg Neuts % (Manual) Lymphocytes % (Manual) Monocytes % (Manual) Eosinophils % (Manual) Basophils % (Manual) Nucleated RBC % Seg Neutrophils # Seg Neutrophils # Man Lymphocytes # (Manual) Monocytes # (Manual) Eosinophils # (Manual) Basophils # (Manual) PT INR Fibrinogen dRVVT Confirm Interp Factor V Activity POC ABG pH POC ABG pCO2 POC ABG pO2 ABG pO2 ABG HCO3 ABG Base Excess ABG Hemoglobin Oxyhemoglobin Sodium Potassium Chloride Carbon Dioxide BUN 58 H Creatinine 1.9 H Glucose 169 H POC Glucose 195 H Lactic Acid Calcium Phosphorus Magnesium Direct Bilirubin AST ALT Alkaline Phosphatase Lactate Dehydrogenase Troponin T C-Reactive Protein Total Protein Albumin Prealbumin Triglycerides Cholesterol LDL Cholesterol Direct HDL Cholesterol Urine pH Urine WBC (Auto) Urine Creatinine Urine Total Protein Fluid Total Protein Vancomycin Trough Rheumatoid Factor Complement C4 Miscellaneous Test Crossmatch 10/14/16 10/14/16 10/14/16 11:44 17:13 23:28 WBC RBC Hgb Hct MCV MCH MCHC RDW Plt Count Lymph % (Auto) [place] % (Auto) Lymph # [place] # Baso # Seg Neutrophils % Seg Neuts % (Manual) Lymphocytes % (Manual) Monocytes % (Manual) Eosinophils % (Manual) Basophils % (Manual) Nucleated RBC % Seg Neutrophils # Seg Neutrophils # Man Lymphocytes # (Manual) Monocytes # (Manual) Eosinophils # (Manual) Basophils # (Manual) PT INR Fibrinogen dRVVT Confirm Interp Factor V Activity POC ABG pH POC ABG pCO2 POC ABG pO2 ABG pO2 ABG HCO3 ABG Base Excess ABG Hemoglobin Oxyhemoglobin Sodium Potassium Chloride Carbon Dioxide BUN Creatinine Glucose POC Glucose 174 H 121 H 151 H Lactic Acid Calcium Phosphorus Magnesium Direct Bilirubin AST ALT Alkaline Phosphatase Lactate Dehydrogenase Troponin T C-Reactive Protein Total Protein Albumin Prealbumin Triglycerides Cholesterol LDL Cholesterol Direct HDL Cholesterol Urine pH Urine WBC (Auto) Urine Creatinine Urine Total Protein Fluid Total Protein Vancomycin Trough Rheumatoid Factor Complement C4 Miscellaneous Test Crossmatch 10/15/16 10/15/16 10/15/16 05:06 12:26 17:48 WBC RBC Hgb Hct MCV MCH MCHC RDW Plt Count Lymph % (Auto) [place] % (Auto) Lymph # [place] # Baso # Seg Neutrophils % Seg Neuts % (Manual) Lymphocytes % (Manual) Monocytes % (Manual) Eosinophils % (Manual) Basophils % (Manual) Nucleated RBC % Seg Neutrophils # Seg Neutrophils # Man Lymphocytes # (Manual) Monocytes # (Manual) Eosinophils # (Manual) Basophils # (Manual) PT INR Fibrinogen dRVVT Confirm Interp Factor V Activity POC ABG pH POC ABG pCO2 POC ABG pO2 ABG pO2 ABG HCO3 ABG Base Excess ABG Hemoglobin Oxyhemoglobin Sodium Potassium Chloride Carbon Dioxide BUN Creatinine Glucose POC Glucose 151 H 149 H 153 H Lactic Acid Calcium Phosphorus Magnesium Direct Bilirubin AST ALT Alkaline Phosphatase Lactate Dehydrogenase Troponin T C-Reactive Protein Total Protein Albumin Prealbumin Triglycerides Cholesterol LDL Cholesterol Direct HDL Cholesterol Urine pH Urine WBC (Auto) Urine Creatinine Urine Total Protein Fluid Total Protein Vancomycin Trough Rheumatoid Factor Complement C4 Miscellaneous Test Crossmatch 10/15/16 10/15/16 10/16/16 Unknown Unknown 00:02 WBC 23.4 H RBC 2.78 L Hgb 8.5 L Hct 25.7 L MCV MCH MCHC RDW 18.7 H Plt Count Lymph % (Auto) [place] % (Auto) Lymph # [place] # Baso # Seg Neutrophils % Seg Neuts % (Manual) Lymphocytes % (Manual) Monocytes % (Manual) Eosinophils % (Manual) Basophils % (Manual) Nucleated RBC % Seg Neutrophils # Seg Neutrophils # Man Lymphocytes # (Manual) Monocytes # (Manual) Eosinophils # (Manual) Basophils # (Manual) PT INR Fibrinogen dRVVT Confirm Interp Factor V Activity POC ABG pH POC ABG pCO2 POC ABG pO2 ABG pO2 ABG HCO3 ABG Base Excess ABG Hemoglobin Oxyhemoglobin Sodium Potassium Chloride Carbon Dioxide BUN 73 H Creatinine 2.3 H Glucose 120 H POC Glucose 137 H Lactic Acid Calcium Phosphorus Magnesium Direct Bilirubin AST ALT Alkaline Phosphatase Lactate Dehydrogenase Troponin T C-Reactive Protein Total Protein Albumin Prealbumin Triglycerides Cholesterol LDL Cholesterol Direct HDL Cholesterol Urine pH Urine WBC (Auto) Urine Creatinine Urine Total Protein Fluid Total Protein Vancomycin Trough Rheumatoid Factor Complement C4 Miscellaneous Test Crossmatch 10/16/16 10/16/16 10/16/16 05:44 06:25 06:25 WBC 22.5 H RBC 2.76 L Hgb 8.3 L Hct 25.2 L MCV MCH MCHC RDW 18.3 H Plt Count Lymph % (Auto) [place] % (Auto) Lymph # [place] # Baso # Seg Neutrophils % Seg Neuts % (Manual) Lymphocytes % (Manual) Monocytes % (Manual) Eosinophils % (Manual) Basophils % (Manual) Nucleated RBC % Seg Neutrophils # Seg Neutrophils # Man Lymphocytes # (Manual) Monocytes # (Manual) Eosinophils # (Manual) Basophils # (Manual) PT INR Fibrinogen dRVVT Confirm Interp Factor V Activity POC ABG pH POC ABG pCO2 POC ABG pO2 ABG pO2 ABG HCO3 ABG Base Excess ABG Hemoglobin Oxyhemoglobin Sodium Potassium Chloride Carbon Dioxide BUN 92 H Creatinine 3.0 H Glucose 138 H POC Glucose 110 H Lactic Acid Calcium Phosphorus Magnesium Direct Bilirubin AST ALT Alkaline Phosphatase Lactate Dehydrogenase Troponin T C-Reactive Protein Total Protein Albumin Prealbumin Triglycerides Cholesterol LDL Cholesterol Direct HDL Cholesterol Urine pH Urine WBC (Auto) Urine Creatinine Urine Total Protein Fluid Total Protein Vancomycin Trough Rheumatoid Factor Complement C4 Miscellaneous Test Crossmatch 10/16/16 10/16/16 10/16/16 11:27 11:48 17:36 WBC RBC Hgb Hct MCV MCH MCHC RDW Plt Count Lymph % (Auto) [place] % (Auto) Lymph # [place] # Baso # Seg Neutrophils % Seg Neuts % (Manual) Lymphocytes % (Manual) Monocytes % (Manual) Eosinophils % (Manual) Basophils % (Manual) Nucleated RBC % Seg Neutrophils # Seg Neutrophils # Man Lymphocytes # (Manual) Monocytes # (Manual) Eosinophils # (Manual) Basophils # (Manual) PT INR Fibrinogen dRVVT Confirm Interp Factor V Activity POC ABG pH 7.582 H POC ABG pCO2 27.4 L POC ABG pO2 110 H ABG pO2 ABG HCO3 ABG Base Excess ABG Hemoglobin Oxyhemoglobin Sodium Potassium Chloride Carbon Dioxide BUN Creatinine Glucose POC Glucose 121 H 133 H Lactic Acid Calcium Phosphorus Magnesium Direct Bilirubin AST ALT Alkaline Phosphatase Lactate Dehydrogenase Troponin T C-Reactive Protein Total Protein Albumin Prealbumin Triglycerides Cholesterol LDL Cholesterol Direct HDL Cholesterol Urine pH Urine WBC (Auto) Urine Creatinine Urine Total Protein Fluid Total Protein Vancomycin Trough Rheumatoid Factor Complement C4 Miscellaneous Test Crossmatch 10/16/16 10/17/16 10/17/16 20:48 04:24 04:24 WBC 21.4 H RBC 2.72 L Hgb 8.0 L Hct 25.2 L MCV MCH MCHC RDW 18.0 H Plt Count Lymph % (Auto) [place] % (Auto) Lymph # [place] # Baso # Seg Neutrophils % Seg Neuts % (Manual) Lymphocytes % (Manual) Monocytes % (Manual) Eosinophils % (Manual) Basophils % (Manual) Nucleated RBC % Seg Neutrophils # Seg Neutrophils # Man Lymphocytes # (Manual) Monocytes # (Manual) Eosinophils # (Manual) Basophils # (Manual) PT INR Fibrinogen dRVVT Confirm Interp Factor V Activity POC ABG pH 7.561 H POC ABG pCO2 24.4 L POC ABG pO2 77 L ABG pO2 ABG HCO3 ABG Base Excess ABG Hemoglobin Oxyhemoglobin Sodium 148 H Potassium Chloride Carbon Dioxide BUN 104 H Creatinine 3.0 H Glucose 149 H POC Glucose Lactic Acid Calcium Phosphorus Magnesium Direct Bilirubin AST ALT Alkaline Phosphatase 138 H Lactate Dehydrogenase Troponin T C-Reactive Protein Total Protein 6.2 L Albumin 1.5 L Prealbumin Triglycerides Cholesterol LDL Cholesterol Direct HDL Cholesterol Urine pH Urine WBC (Auto) Urine Creatinine Urine Total Protein Fluid Total Protein Vancomycin Trough Rheumatoid Factor Complement C4 Miscellaneous Test Crossmatch 10/17/16 10/17/16 10/17/16 06:02 12:17 17:14 WBC RBC Hgb Hct MCV MCH MCHC RDW Plt Count Lymph % (Auto) [place] % (Auto) Lymph # [place] # Baso # Seg Neutrophils % Seg Neuts % (Manual) Lymphocytes % (Manual) Monocytes % (Manual) Eosinophils % (Manual) Basophils % (Manual) Nucleated RBC % Seg Neutrophils # Seg Neutrophils # Man Lymphocytes # (Manual) Monocytes # (Manual) Eosinophils # (Manual) Basophils # (Manual) PT INR Fibrinogen dRVVT Confirm Interp Factor V Activity POC ABG pH POC ABG pCO2 POC ABG pO2 ABG pO2 ABG HCO3 ABG Base Excess ABG Hemoglobin Oxyhemoglobin Sodium Potassium Chloride Carbon Dioxide BUN Creatinine Glucose POC Glucose 170 H 167 H 126 H Lactic Acid Calcium Phosphorus Magnesium Direct Bilirubin AST ALT Alkaline Phosphatase Lactate Dehydrogenase Troponin T C-Reactive Protein Total Protein Albumin Prealbumin Triglycerides Cholesterol LDL Cholesterol Direct HDL Cholesterol Urine pH Urine WBC (Auto) Urine Creatinine Urine Total Protein Fluid Total Protein Vancomycin Trough Rheumatoid Factor Complement C4 Miscellaneous Test Crossmatch 10/17/16 10/18/16 10/18/16 23:17 04:00 04:00 WBC 20.7 H RBC 2.47 L Hgb 7.4 L Hct 22.9 L MCV MCH MCHC RDW 17.5 H Plt Count Lymph % (Auto) [place] % (Auto) Lymph # [place] # Baso # Seg Neutrophils % Seg Neuts % (Manual) Lymphocytes % (Manual) Monocytes % (Manual) Eosinophils % (Manual) Basophils % (Manual) Nucleated RBC % Seg Neutrophils # Seg Neutrophils # Man Lymphocytes # (Manual) Monocytes # (Manual) Eosinophils # (Manual) Basophils # (Manual) PT INR Fibrinogen dRVVT Confirm Interp Factor V Activity POC ABG pH POC ABG pCO2 POC ABG pO2 ABG pO2 ABG HCO3 ABG Base Excess ABG Hemoglobin Oxyhemoglobin Sodium 149 H Potassium Chloride 107.9 H Carbon Dioxide 20 L BUN 117 H Creatinine 3.2 H Glucose 119 H POC Glucose 121 H Lactic Acid Calcium Phosphorus Magnesium Direct Bilirubin AST ALT Alkaline Phosphatase Lactate Dehydrogenase Troponin T C-Reactive Protein Total Protein Albumin Prealbumin Triglycerides Cholesterol LDL Cholesterol Direct HDL Cholesterol Urine pH Urine WBC (Auto) Urine Creatinine Urine Total Protein Fluid Total Protein Vancomycin Trough Rheumatoid Factor Complement C4 Miscellaneous Test Crossmatch 10/18/16 10/18/16 10/18/16 05:23 10:46 17:30 WBC RBC Hgb Hct MCV MCH MCHC RDW Plt Count Lymph % (Auto) [place] % (Auto) Lymph # [place] # Baso # Seg Neutrophils % Seg Neuts % (Manual) Lymphocytes % (Manual) Monocytes % (Manual) Eosinophils % (Manual) Basophils % (Manual) Nucleated RBC % Seg Neutrophils # Seg Neutrophils # Man Lymphocytes # (Manual) Monocytes # (Manual) Eosinophils # (Manual) Basophils # (Manual) PT INR Fibrinogen dRVVT Confirm Interp Factor V Activity POC ABG pH POC ABG pCO2 POC ABG pO2 ABG pO2 ABG HCO3 ABG Base Excess ABG Hemoglobin Oxyhemoglobin Sodium Potassium Chloride Carbon Dioxide BUN Creatinine Glucose POC Glucose 119 H 155 H 124 H Lactic Acid Calcium Phosphorus Magnesium Direct Bilirubin AST ALT Alkaline Phosphatase Lactate Dehydrogenase Troponin T C-Reactive Protein Total Protein Albumin Prealbumin Triglycerides Cholesterol LDL Cholesterol Direct HDL Cholesterol Urine pH Urine WBC (Auto) Urine Creatinine Urine Total Protein Fluid Total Protein Vancomycin Trough Rheumatoid Factor Complement C4 Miscellaneous Test Crossmatch 10/19/16 10/19/16 10/19/16 04:00 04:00 05:25 WBC 17.4 H RBC 2.54 L Hgb 7.7 L Hct 23.6 L MCV MCH MCHC RDW 17.3 H Plt Count Lymph % (Auto) [place] % (Auto) Lymph # [place] # Baso # Seg Neutrophils % Seg Neuts % (Manual) Lymphocytes % (Manual) Monocytes % (Manual) Eosinophils % (Manual) Basophils % (Manual) Nucleated RBC % Seg Neutrophils # Seg Neutrophils # Man Lymphocytes # (Manual) Monocytes # (Manual) Eosinophils # (Manual) Basophils # (Manual) PT INR Fibrinogen dRVVT Confirm Interp Factor V Activity POC ABG pH POC ABG pCO2 POC ABG pO2 ABG pO2 ABG HCO3 ABG Base Excess ABG Hemoglobin Oxyhemoglobin Sodium Potassium Chloride Carbon Dioxide BUN 72 H Creatinine 2.1 H Glucose 116 H POC Glucose 119 H Lactic Acid Calcium Phosphorus Magnesium Direct Bilirubin AST ALT Alkaline Phosphatase Lactate Dehydrogenase Troponin T C-Reactive Protein Total Protein Albumin Prealbumin Triglycerides Cholesterol LDL Cholesterol Direct HDL Cholesterol Urine pH Urine WBC (Auto) Urine Creatinine Urine Total Protein Fluid Total Protein Vancomycin Trough Rheumatoid Factor Complement C4 Miscellaneous Test Crossmatch 10/19/16 10/19/16 10/20/16 11:46 23:59 06:00 WBC RBC Hgb Hct MCV MCH MCHC RDW Plt Count Lymph % (Auto) [place] % (Auto) Lymph # [place] # Baso # Seg Neutrophils % Seg Neuts % (Manual) Lymphocytes % (Manual) Monocytes % (Manual) Eosinophils % (Manual) Basophils % (Manual) Nucleated RBC % Seg Neutrophils # Seg Neutrophils # Man Lymphocytes # (Manual) Monocytes # (Manual) Eosinophils # (Manual) Basophils # (Manual) PT INR Fibrinogen dRVVT Confirm Interp Factor V Activity POC ABG pH POC ABG pCO2 POC ABG pO2 ABG pO2 ABG HCO3 ABG Base Excess ABG Hemoglobin Oxyhemoglobin Sodium Potassium Chloride Carbon Dioxide 17 L BUN 94 H Creatinine 2.7 H Glucose POC Glucose 116 H 117 H Lactic Acid Calcium Phosphorus Magnesium Direct Bilirubin AST ALT Alkaline Phosphatase Lactate Dehydrogenase Troponin T C-Reactive Protein Total Protein Albumin Prealbumin Triglycerides Cholesterol LDL Cholesterol Direct HDL Cholesterol Urine pH Urine WBC (Auto) Urine Creatinine Urine Total Protein Fluid Total Protein Vancomycin Trough Rheumatoid Factor Complement C4 Miscellaneous Test Crossmatch 10/20/16 10/20/16 10/20/16 06:00 11:49 16:00 WBC 19.7 H RBC 2.51 L Hgb 7.7 L Hct 23.5 L MCV MCH MCHC RDW 17.5 H Plt Count Lymph % (Auto) [place] % (Auto) Lymph # [place] # Baso # Seg Neutrophils % Seg Neuts % (Manual) Lymphocytes % (Manual) Monocytes % (Manual) Eosinophils % (Manual) Basophils % (Manual) Nucleated RBC % Seg Neutrophils # Seg Neutrophils # Man Lymphocytes # (Manual) Monocytes # (Manual) Eosinophils # (Manual) Basophils # (Manual) PT INR Fibrinogen dRVVT Confirm Interp Factor V Activity POC ABG pH POC ABG pCO2 POC ABG pO2 ABG pO2 ABG HCO3 ABG Base Excess ABG Hemoglobin Oxyhemoglobin Sodium Potassium Chloride Carbon Dioxide BUN Creatinine Glucose POC Glucose 117 H Lactic Acid Calcium Phosphorus Magnesium Direct Bilirubin AST ALT Alkaline Phosphatase Lactate Dehydrogenase Troponin T C-Reactive Protein Total Protein Albumin Prealbumin Triglycerides Cholesterol LDL Cholesterol Direct HDL Cholesterol Urine pH Urine WBC (Auto) Urine Creatinine Urine Total Protein Fluid Total Protein Vancomycin Trough Rheumatoid Factor Complement C4 Miscellaneous Test Flexitest 1 H Crossmatch 10/20/16 10/20/16 10/21/16 18:36 23:39 04:00 WBC RBC Hgb Hct MCV MCH MCHC RDW Plt Count Lymph % (Auto) [place] % (Auto) Lymph # [place] # Baso # Seg Neutrophils % Seg Neuts % (Manual) Lymphocytes % (Manual) Monocytes % (Manual) Eosinophils % (Manual) Basophils % (Manual) Nucleated RBC % Seg Neutrophils # Seg Neutrophils # Man Lymphocytes # (Manual) Monocytes # (Manual) Eosinophils # (Manual) Basophils # (Manual) PT INR Fibrinogen dRVVT Confirm Interp Factor V Activity POC ABG pH POC ABG pCO2 POC ABG pO2 ABG pO2 ABG HCO3 ABG Base Excess ABG Hemoglobin Oxyhemoglobin Sodium Potassium 5.4 H D Chloride Carbon Dioxide 15 L BUN 110 H Creatinine 3.0 H Glucose POC Glucose 127 H 114 H Lactic Acid Calcium Phosphorus Magnesium Direct Bilirubin AST ALT Alkaline Phosphatase Lactate Dehydrogenase Troponin T C-Reactive Protein Total Protein Albumin Prealbumin Triglycerides Cholesterol LDL Cholesterol Direct HDL Cholesterol Urine pH Urine WBC (Auto) Urine Creatinine Urine Total Protein Fluid Total Protein Vancomycin Trough Rheumatoid Factor Complement C4 Miscellaneous Test Crossmatch 10/21/16 10/21/16 10/22/16 05:54 23:46 05:18 WBC RBC Hgb Hct MCV MCH MCHC RDW Plt Count Lymph % (Auto) [place] % (Auto) Lymph # [place] # Baso # Seg Neutrophils % Seg Neuts % (Manual) Lymphocytes % (Manual) Monocytes % (Manual) Eosinophils % (Manual) Basophils % (Manual) Nucleated RBC % Seg Neutrophils # Seg Neutrophils # Man Lymphocytes # (Manual) Monocytes # (Manual) Eosinophils # (Manual) Basophils # (Manual) PT INR Fibrinogen dRVVT Confirm Interp Factor V Activity POC ABG pH POC ABG pCO2 POC ABG pO2 ABG pO2 ABG HCO3 ABG Base Excess ABG Hemoglobin Oxyhemoglobin Sodium Potassium Chloride Carbon Dioxide BUN Creatinine Glucose POC Glucose 119 H 108 H 109 H Lactic Acid Calcium Phosphorus Magnesium Direct Bilirubin AST ALT Alkaline Phosphatase Lactate Dehydrogenase Troponin T C-Reactive Protein Total Protein Albumin Prealbumin Triglycerides Cholesterol LDL Cholesterol Direct HDL Cholesterol Urine pH Urine WBC (Auto) Urine Creatinine Urine Total Protein Fluid Total Protein Vancomycin Trough Rheumatoid Factor Complement C4 Miscellaneous Test Crossmatch 10/22/16 10/22/16 10/22/16 06:40 06:40 06:40 WBC 14.0 H RBC 2.03 L Hgb 7.0 L Hct 20.5 L MCV 98 H MCH 34 H MCHC 35 H RDW 17.8 H Plt Count Lymph % (Auto) [place] % (Auto) 9.9 H Lymph # [place] # 1.4 H Baso # 0.2 H Seg Neutrophils % 72.0 H Seg Neuts % (Manual) Lymphocytes % (Manual) Monocytes % (Manual) Eosinophils % (Manual) Basophils % (Manual) Nucleated RBC % Seg Neutrophils # 10.0 H Seg Neutrophils # Man Lymphocytes # (Manual) Monocytes # (Manual) Eosinophils # (Manual) Basophils # (Manual) PT INR Fibrinogen dRVVT Confirm Interp Factor V Activity POC ABG pH POC ABG pCO2 POC ABG pO2 ABG pO2 ABG HCO3 ABG Base Excess ABG Hemoglobin Oxyhemoglobin Sodium 130 L D Potassium Chloride 92.4 L Carbon Dioxide 20 L BUN 50 H Creatinine 1.6 H Glucose 589 H* POC Glucose Lactic Acid Calcium 7.8 L D Phosphorus Magnesium 1.60 L Direct Bilirubin AST ALT Alkaline Phosphatase Lactate Dehydrogenase Troponin T C-Reactive Protein Total Protein Albumin Prealbumin Triglycerides Cholesterol LDL Cholesterol Direct HDL Cholesterol Urine pH Urine WBC (Auto) Urine Creatinine Urine Total Protein Fluid Total Protein Vancomycin Trough Rheumatoid Factor Complement C4 Miscellaneous Test Crossmatch 10/22/16 10/22/16 10/22/16 11:39 16:44 23:36 WBC RBC Hgb Hct MCV MCH MCHC RDW Plt Count Lymph % (Auto) [place] % (Auto) Lymph # [place] # Baso # Seg Neutrophils % Seg Neuts % (Manual) Lymphocytes % (Manual) Monocytes % (Manual) Eosinophils % (Manual) Basophils % (Manual) Nucleated RBC % Seg Neutrophils # Seg Neutrophils # Man Lymphocytes # (Manual) Monocytes # (Manual) Eosinophils # (Manual) Basophils # (Manual) PT INR Fibrinogen dRVVT Confirm Interp Factor V Activity POC ABG pH POC ABG pCO2 POC ABG pO2 ABG pO2 ABG HCO3 ABG Base Excess ABG Hemoglobin Oxyhemoglobin Sodium Potassium Chloride Carbon Dioxide BUN Creatinine Glucose POC Glucose 142 H 163 H 123 H Lactic Acid Calcium Phosphorus Magnesium Direct Bilirubin AST ALT Alkaline Phosphatase Lactate Dehydrogenase Troponin T C-Reactive Protein Total Protein Albumin Prealbumin Triglycerides Cholesterol LDL Cholesterol Direct HDL Cholesterol Urine pH Urine WBC (Auto) Urine Creatinine Urine Total Protein Fluid Total Protein Vancomycin Trough Rheumatoid Factor Complement C4 Miscellaneous Test Crossmatch 09/03/17 09/03/17 09/03/17 04:58 06:00 12:12 WBC RBC Hgb Hct MCV MCH MCHC RDW Plt Count Lymph % (Auto) [place] % (Auto) Lymph # [place] # Baso # Seg Neutrophils % Seg Neuts % (Manual) Lymphocytes % (Manual) Monocytes % (Manual) Eosinophils % (Manual) Basophils % (Manual) Nucleated RBC % Seg Neutrophils # Seg Neutrophils # Man Lymphocytes # (Manual) Monocytes # (Manual) Eosinophils # (Manual) Basophils # (Manual) PT INR Fibrinogen dRVVT Confirm Interp Factor V Activity POC ABG pH POC ABG pCO2 POC ABG pO2 ABG pO2 ABG HCO3 ABG Base Excess ABG Hemoglobin Oxyhemoglobin Sodium 133 L Potassium 3.5 L Chloride 96.1 L Carbon Dioxide 18 L BUN 76 H Creatinine 2.1 H Glucose POC Glucose 133 H 138 H Lactic Acid Calcium 8.3 L Phosphorus Magnesium Direct Bilirubin AST ALT Alkaline Phosphatase Lactate Dehydrogenase Troponin T C-Reactive Protein Total Protein Albumin Prealbumin Triglycerides Cholesterol LDL Cholesterol Direct HDL Cholesterol Urine pH Urine WBC (Auto) Urine Creatinine Urine Total Protein Fluid Total Protein Vancomycin Trough Rheumatoid Factor Complement C4 Miscellaneous Test Crossmatch 10/23/16 10/23/16 10/24/16 16:53 23:37 04:00 WBC RBC Hgb Hct MCV MCH MCHC RDW Plt Count Lymph % (Auto) [place] % (Auto) Lymph # [place] # Baso # Seg Neutrophils % Seg Neuts % (Manual) Lymphocytes % (Manual) Monocytes % (Manual) Eosinophils % (Manual) Basophils % (Manual) Nucleated RBC % Seg Neutrophils # Seg Neutrophils # Man Lymphocytes # (Manual) Monocytes # (Manual) Eosinophils # (Manual) Basophils # (Manual) PT INR Fibrinogen dRVVT Confirm Interp Factor V Activity POC ABG pH POC ABG pCO2 POC ABG pO2 ABG pO2 ABG HCO3 ABG Base Excess ABG Hemoglobin Oxyhemoglobin Sodium 131 L Potassium Chloride 94.5 L Carbon Dioxide 19 L BUN 97 H Creatinine 2.6 H Glucose 110 H POC Glucose 125 H 123 H Lactic Acid Calcium 8.3 L Phosphorus Magnesium Direct Bilirubin AST ALT Alkaline Phosphatase Lactate Dehydrogenase Troponin T C-Reactive Protein Total Protein Albumin Prealbumin Triglycerides Cholesterol LDL Cholesterol Direct HDL Cholesterol Urine pH Urine WBC (Auto) Urine Creatinine Urine Total Protein Fluid Total Protein Vancomycin Trough Rheumatoid Factor Complement C4 Miscellaneous Test Crossmatch 10/24/16 10/24/16 10/24/16 07:49 11:39 17:52 WBC RBC Hgb 6.0 L Hct 19.7 L* MCV MCH MCHC RDW Plt Count Lymph % (Auto) [place] % (Auto) Lymph # [place] # Baso # Seg Neutrophils % Seg Neuts % (Manual) Lymphocytes % (Manual) Monocytes % (Manual) Eosinophils % (Manual) Basophils % (Manual) Nucleated RBC % Seg Neutrophils # Seg Neutrophils # Man Lymphocytes # (Manual) Monocytes # (Manual) Eosinophils # (Manual) Basophils # (Manual) PT INR Fibrinogen dRVVT Confirm Interp Factor V Activity POC ABG pH POC ABG pCO2 POC ABG pO2 ABG pO2 ABG HCO3 ABG Base Excess ABG Hemoglobin Oxyhemoglobin Sodium Potassium Chloride Carbon Dioxide BUN Creatinine Glucose POC Glucose 106 H 158 H Lactic Acid Calcium Phosphorus Magnesium Direct Bilirubin AST ALT Alkaline Phosphatase Lactate Dehydrogenase Troponin T C-Reactive Protein Total Protein Albumin Prealbumin Triglycerides Cholesterol LDL Cholesterol Direct HDL Cholesterol Urine pH Urine WBC (Auto) Urine Creatinine Urine Total Protein Fluid Total Protein Vancomycin Trough Rheumatoid Factor Complement C4 Miscellaneous Test Crossmatch 10/24/16 10/24/16 10/24/16 20:00 22:27 Unknown WBC RBC Hgb 9.4 L D Hct 27.5 L D MCV MCH MCHC RDW Plt Count Lymph % (Auto) [place] % (Auto) Lymph # [place] # Baso # Seg Neutrophils % Seg Neuts % (Manual) Lymphocytes % (Manual) Monocytes % (Manual) Eosinophils % (Manual) Basophils % (Manual) Nucleated RBC % Seg Neutrophils # Seg Neutrophils # Man Lymphocytes # (Manual) Monocytes # (Manual) Eosinophils # (Manual) Basophils # (Manual) PT INR Fibrinogen dRVVT Confirm Interp Factor V Activity POC ABG pH POC ABG pCO2 POC ABG pO2 ABG pO2 ABG HCO3 ABG Base Excess ABG Hemoglobin Oxyhemoglobin Sodium Potassium Chloride Carbon Dioxide BUN Creatinine Glucose POC Glucose 125 H Lactic Acid Calcium Phosphorus Magnesium Direct Bilirubin AST ALT Alkaline Phosphatase Lactate Dehydrogenase Troponin T C-Reactive Protein Total Protein Albumin Prealbumin Triglycerides Cholesterol LDL Cholesterol Direct HDL Cholesterol Urine pH Urine WBC (Auto) Urine Creatinine Urine Total Protein Fluid Total Protein Vancomycin Trough Rheumatoid Factor Complement C4 Miscellaneous Test Crossmatch See Detail 10/25/16 10/25/16 10/25/16 04:00 04:00 04:00 WBC 14.2 H RBC 2.98 L Hgb 9.0 L Hct 26.2 L MCV MCH MCHC RDW 16.6 H Plt Count Lymph % (Auto) [place] % (Auto) 10.7 H Lymph # [place] # 1.5 H Baso # Seg Neutrophils % 73.6 H Seg Neuts % (Manual) Lymphocytes % (Manual) Monocytes % (Manual) Eosinophils % (Manual) Basophils % (Manual) Nucleated RBC % Seg Neutrophils # 10.5 H Seg Neutrophils # Man Lymphocytes # (Manual) Monocytes # (Manual) Eosinophils # (Manual) Basophils # (Manual) PT INR Fibrinogen dRVVT Confirm Interp Factor V Activity POC ABG pH POC ABG pCO2 POC ABG pO2 ABG pO2 ABG HCO3 ABG Base Excess ABG Hemoglobin Oxyhemoglobin Sodium 132 L Potassium Chloride 94.7 L Carbon Dioxide BUN 51 H Creatinine 1.6 H Glucose 130 H POC Glucose Lactic Acid Calcium 8.3 L Phosphorus 1.60 L D Magnesium Direct Bilirubin AST ALT Alkaline Phosphatase Lactate Dehydrogenase Troponin T C-Reactive Protein Total Protein Albumin Prealbumin Triglycerides Cholesterol LDL Cholesterol Direct HDL Cholesterol Urine pH Urine WBC (Auto) Urine Creatinine Urine Total Protein Fluid Total Protein Vancomycin Trough Rheumatoid Factor Complement C4 Miscellaneous Test Crossmatch 10/25/16 10/25/16 10/25/16 04:32 11:48 17:22 WBC RBC Hgb Hct MCV MCH MCHC RDW Plt Count Lymph % (Auto) [place] % (Auto) Lymph # [place] # Baso # Seg Neutrophils % Seg Neuts % (Manual) Lymphocytes % (Manual) Monocytes % (Manual) Eosinophils % (Manual) Basophils % (Manual) Nucleated RBC % Seg Neutrophils # Seg Neutrophils # Man Lymphocytes # (Manual) Monocytes # (Manual) Eosinophils # (Manual) Basophils # (Manual) PT INR Fibrinogen dRVVT Confirm Interp Factor V Activity POC ABG pH POC ABG pCO2 POC ABG pO2 ABG pO2 ABG HCO3 ABG Base Excess ABG Hemoglobin Oxyhemoglobin Sodium Potassium Chloride Carbon Dioxide BUN Creatinine Glucose POC Glucose 124 H 171 H 120 H Lactic Acid Calcium Phosphorus Magnesium Direct Bilirubin AST ALT Alkaline Phosphatase Lactate Dehydrogenase Troponin T C-Reactive Protein Total Protein Albumin Prealbumin Triglycerides Cholesterol LDL Cholesterol Direct HDL Cholesterol Urine pH Urine WBC (Auto) Urine Creatinine Urine Total Protein Fluid Total Protein Vancomycin Trough Rheumatoid Factor Complement C4 Miscellaneous Test Crossmatch 10/26/16 10/26/16 10/26/16 04:54 07:06 07:06 WBC 16.9 H RBC 3.06 L Hgb 9.1 L Hct 26.9 L MCV MCH MCHC RDW 16.9 H Plt Count Lymph % (Auto) [place] % (Auto) Lymph # [place] # Baso # Seg Neutrophils % Seg Neuts % (Manual) 71.0 H Lymphocytes % (Manual) 5.0 L Monocytes % (Manual) 12.0 H Eosinophils % (Manual) Basophils % (Manual) Nucleated RBC % Seg Neutrophils # Seg Neutrophils # Man 12.0 H Lymphocytes # (Manual) 0.8 L Monocytes # (Manual) 2.0 H Eosinophils # (Manual) Basophils # (Manual) PT INR Fibrinogen dRVVT Confirm Interp Factor V Activity POC ABG pH POC ABG pCO2 POC ABG pO2 ABG pO2 ABG HCO3 ABG Base Excess ABG Hemoglobin Oxyhemoglobin Sodium 135 L Potassium Chloride 97.1 L Carbon Dioxide BUN 73 H Creatinine 2.2 H Glucose 117 H POC Glucose 123 H Lactic Acid Calcium Phosphorus 1.70 L Magnesium Direct Bilirubin AST ALT Alkaline Phosphatase Lactate Dehydrogenase Troponin T C-Reactive Protein Total Protein Albumin Prealbumin Triglycerides Cholesterol LDL Cholesterol Direct HDL Cholesterol Urine pH Urine WBC (Auto) Urine Creatinine Urine Total Protein Fluid Total Protein Vancomycin Trough Rheumatoid Factor Complement C4 Miscellaneous Test Crossmatch 10/26/16 10/26/16 10/26/16 12:12 17:29 23:42 WBC RBC Hgb Hct MCV MCH MCHC RDW Plt Count Lymph % (Auto) [place] % (Auto) Lymph # [place] # Baso # Seg Neutrophils % Seg Neuts % (Manual) Lymphocytes % (Manual) Monocytes % (Manual) Eosinophils % (Manual) Basophils % (Manual) Nucleated RBC % Seg Neutrophils # Seg Neutrophils # Man Lymphocytes # (Manual) Monocytes # (Manual) Eosinophils # (Manual) Basophils # (Manual) PT INR Fibrinogen dRVVT Confirm Interp Factor V Activity POC ABG pH POC ABG pCO2 POC ABG pO2 ABG pO2 ABG HCO3 ABG Base Excess ABG Hemoglobin Oxyhemoglobin Sodium Potassium Chloride Carbon Dioxide BUN Creatinine Glucose POC Glucose 126 H 161 H 118 H Lactic Acid Calcium Phosphorus Magnesium Direct Bilirubin AST ALT Alkaline Phosphatase Lactate Dehydrogenase Troponin T C-Reactive Protein Total Protein Albumin Prealbumin Triglycerides Cholesterol LDL Cholesterol Direct HDL Cholesterol Urine pH Urine WBC (Auto) Urine Creatinine Urine Total Protein Fluid Total Protein Vancomycin Trough Rheumatoid Factor Complement C4 Miscellaneous Test Crossmatch 10/27/16 10/27/16 10/27/16 05:03 06:30 06:30 WBC 13.9 H RBC 3.09 L Hgb 9.2 L Hct 27.5 L MCV MCH MCHC RDW 17.0 H Plt Count Lymph % (Auto) [place] % (Auto) Lymph # [place] # Baso # Seg Neutrophils % Seg Neuts % (Manual) 78.0 H Lymphocytes % (Manual) Monocytes % (Manual) Eosinophils % (Manual) Basophils % (Manual) Nucleated RBC % 2.0 H Seg Neutrophils # Seg Neutrophils # Man 10.8 H Lymphocytes # (Manual) Monocytes # (Manual) 1.0 H Eosinophils # (Manual) Basophils # (Manual) PT INR Fibrinogen dRVVT Confirm Interp Factor V Activity POC ABG pH POC ABG pCO2 POC ABG pO2 ABG pO2 ABG HCO3 ABG Base Excess ABG Hemoglobin Oxyhemoglobin Sodium Potassium Chloride Carbon Dioxide BUN 40 H Creatinine 1.5 H Glucose 135 H POC Glucose 107 H Lactic Acid Calcium 8.3 L Phosphorus 1.30 L D Magnesium Direct Bilirubin AST ALT Alkaline Phosphatase Lactate Dehydrogenase Troponin T C-Reactive Protein Total Protein Albumin Prealbumin Triglycerides Cholesterol LDL Cholesterol Direct HDL Cholesterol Urine pH Urine WBC (Auto) Urine Creatinine Urine Total Protein Fluid Total Protein Vancomycin Trough Rheumatoid Factor Complement C4 Miscellaneous Test Crossmatch 10/27/16 10/27/16 10/27/16 13:27 18:07 23:40 WBC RBC Hgb Hct MCV MCH MCHC RDW Plt Count Lymph % (Auto) [place] % (Auto) Lymph # [place] # Baso # Seg Neutrophils % Seg Neuts % (Manual) Lymphocytes % (Manual) Monocytes % (Manual) Eosinophils % (Manual) Basophils % (Manual) Nucleated RBC % Seg Neutrophils # Seg Neutrophils # Man Lymphocytes # (Manual) Monocytes # (Manual) Eosinophils # (Manual) Basophils # (Manual) PT INR Fibrinogen dRVVT Confirm Interp Factor V Activity POC ABG pH POC ABG pCO2 POC ABG pO2 ABG pO2 ABG HCO3 ABG Base Excess ABG Hemoglobin Oxyhemoglobin Sodium Potassium Chloride Carbon Dioxide BUN Creatinine Glucose POC Glucose 117 H 121 H 118 H Lactic Acid Calcium Phosphorus Magnesium Direct Bilirubin AST ALT Alkaline Phosphatase Lactate Dehydrogenase Troponin T C-Reactive Protein Total Protein Albumin Prealbumin Triglycerides Cholesterol LDL Cholesterol Direct HDL Cholesterol Urine pH Urine WBC (Auto) Urine Creatinine Urine Total Protein Fluid Total Protein Vancomycin Trough Rheumatoid Factor Complement C4 Miscellaneous Test Crossmatch 10/28/16 10/28/16 10/28/16 05:48 06:45 06:45 WBC 14.7 H RBC 3.05 L Hgb 9.0 L Hct 26.9 L MCV MCH MCHC RDW 16.8 H Plt Count Lymph % (Auto) 8.[address] [place] % (Auto) 8.4 H Lymph # [place] # 1.2 H Baso # Seg Neutrophils % 81.9 H Seg Neuts % (Manual) Lymphocytes % (Manual) Monocytes % (Manual) Eosinophils % (Manual) Basophils % (Manual) Nucleated RBC % Seg Neutrophils # 12.1 H Seg Neutrophils # Man Lymphocytes # (Manual) Monocytes # (Manual) Eosinophils # (Manual) Basophils # (Manual) PT INR Fibrinogen dRVVT Confirm Interp Factor V Activity POC ABG pH POC ABG pCO2 POC ABG pO2 ABG pO2 ABG HCO3 ABG Base Excess ABG Hemoglobin Oxyhemoglobin Sodium Potassium Chloride Carbon Dioxide BUN 60 H Creatinine 1.9 H Glucose 120 H POC Glucose 114 H Lactic Acid Calcium Phosphorus Magnesium Direct Bilirubin AST ALT Alkaline Phosphatase Lactate Dehydrogenase Troponin T C-Reactive Protein Total Protein Albumin Prealbumin Triglycerides Cholesterol LDL Cholesterol Direct HDL Cholesterol Urine pH Urine WBC (Auto) Urine Creatinine Urine Total Protein Fluid Total Protein Vancomycin Trough Rheumatoid Factor Complement C4 Miscellaneous Test Crossmatch 10/28/16 10/28/16 10/29/16 17:08 23:50 05:10 WBC RBC Hgb Hct MCV MCH MCHC RDW Plt Count Lymph % (Auto) [place] % (Auto) Lymph # [place] # Baso # Seg Neutrophils % Seg Neuts % (Manual) Lymphocytes % (Manual) Monocytes % (Manual) Eosinophils % (Manual) Basophils % (Manual) Nucleated RBC % Seg Neutrophils # Seg Neutrophils # Man Lymphocytes # (Manual) Monocytes # (Manual) Eosinophils # (Manual) Basophils # (Manual) PT INR Fibrinogen dRVVT Confirm Interp Factor V Activity POC ABG pH POC ABG pCO2 POC ABG pO2 ABG pO2 ABG HCO3 ABG Base Excess ABG Hemoglobin Oxyhemoglobin Sodium Potassium Chloride Carbon Dioxide BUN Creatinine Glucose POC Glucose 109 H 110 H 124 H Lactic Acid Calcium Phosphorus Magnesium Direct Bilirubin AST ALT Alkaline Phosphatase Lactate Dehydrogenase Troponin T C-Reactive Protein Total Protein Albumin Prealbumin Triglycerides Cholesterol LDL Cholesterol Direct HDL Cholesterol Urine pH Urine WBC (Auto) Urine Creatinine Urine Total Protein Fluid Total Protein Vancomycin Trough Rheumatoid Factor Complement C4 Miscellaneous Test Crossmatch 10/29/16 10/29/16 10/29/16 07:45 07:45 12:19 WBC 14.7 H RBC 3.15 L Hgb 9.3 L Hct 28.9 L MCV MCH MCHC RDW 17.0 H Plt Count Lymph % (Auto) 11.[address] [place] % (Auto) 8.6 H Lymph # [place] # 1.3 H Baso # Seg Neutrophils % 78.1 H Seg Neuts % (Manual) Lymphocytes % (Manual) Monocytes % (Manual) Eosinophils % (Manual) Basophils % (Manual) Nucleated RBC % Seg Neutrophils # 11.4 H Seg Neutrophils # Man Lymphocytes # (Manual) Monocytes # (Manual) Eosinophils # (Manual) Basophils # (Manual) PT INR Fibrinogen dRVVT Confirm Interp Factor V Activity POC ABG pH POC ABG pCO2 POC ABG pO2 ABG pO2 ABG HCO3 ABG Base Excess ABG Hemoglobin Oxyhemoglobin Sodium Potassium 5.1 H Chloride Carbon Dioxide 19 L BUN 78 H Creatinine 2.2 H Glucose 116 H POC Glucose 118 H Lactic Acid Calcium Phosphorus Magnesium Direct Bilirubin AST ALT Alkaline Phosphatase Lactate Dehydrogenase Troponin T C-Reactive Protein Total Protein Albumin Prealbumin Triglycerides Cholesterol LDL Cholesterol Direct HDL Cholesterol Urine pH Urine WBC (Auto) Urine Creatinine Urine Total Protein Fluid Total Protein Vancomycin Trough Rheumatoid Factor Complement C4 Miscellaneous Test Crossmatch 10/29/16 10/30/16 10/30/16 17:49 01:52 03:28 WBC RBC Hgb Hct MCV MCH MCHC RDW Plt Count Lymph % (Auto) [place] % (Auto) Lymph # [place] # Baso # Seg Neutrophils % Seg Neuts % (Manual) Lymphocytes % (Manual) Monocytes % (Manual) Eosinophils % (Manual) Basophils % (Manual) Nucleated RBC % Seg Neutrophils # Seg Neutrophils # Man Lymphocytes # (Manual) Monocytes # (Manual) Eosinophils # (Manual) Basophils # (Manual) PT INR Fibrinogen dRVVT Confirm Interp Factor V Activity POC ABG pH POC ABG pCO2 POC ABG pO2 ABG pO2 ABG HCO3 ABG Base Excess ABG Hemoglobin Oxyhemoglobin Sodium Potassium 5.4 H Chloride 97.5 L Carbon Dioxide 19 L BUN 90 H Creatinine 2.5 H Glucose POC Glucose 120 H 129 H Lactic Acid Calcium Phosphorus 5.20 H Magnesium Direct Bilirubin AST ALT Alkaline Phosphatase Lactate Dehydrogenase Troponin T C-Reactive Protein Total Protein Albumin Prealbumin Triglycerides Cholesterol LDL Cholesterol Direct HDL Cholesterol Urine pH Urine WBC (Auto) Urine Creatinine Urine Total Protein Fluid Total Protein Vancomycin Trough Rheumatoid Factor Complement C4 Miscellaneous Test Crossmatch 10/30/16 10/30/16 10/30/16 03:28 08:19 08:19 WBC 11.6 H 15.9 H RBC 2.75 L 2.82 L Hgb 7.9 L 8.3 L Hct 24.2 L 25.2 L MCV MCH MCHC RDW 16.7 H 17.2 H Plt Count Lymph % (Auto) [place] % (Auto) 9.8 H Lymph # [place] # 1.1 H Baso # Seg Neutrophils % 74.2 H Seg Neuts % (Manual) Lymphocytes % (Manual) Monocytes % (Manual) Eosinophils % (Manual) Basophils % (Manual) Nucleated RBC % Seg Neutrophils # 8.6 H Seg Neutrophils # Man Lymphocytes # (Manual) Monocytes # (Manual) Eosinophils # (Manual) Basophils # (Manual) PT INR Fibrinogen dRVVT Confirm Interp Factor V Activity POC ABG pH POC ABG pCO2 POC ABG pO2 ABG pO2 ABG HCO3 ABG Base Excess ABG Hemoglobin Oxyhemoglobin Sodium Potassium 5.3 H Chloride 97.4 L Carbon Dioxide 19 L BUN 93 H Creatinine 2.6 H Glucose POC Glucose Lactic Acid Calcium Phosphorus Magnesium Direct Bilirubin AST ALT Alkaline Phosphatase Lactate Dehydrogenase Troponin T C-Reactive Protein Total Protein Albumin Prealbumin Triglycerides Cholesterol LDL Cholesterol Direct HDL Cholesterol Urine pH Urine WBC (Auto) Urine Creatinine Urine Total Protein Fluid Total Protein Vancomycin Trough Rheumatoid Factor Complement C4 Miscellaneous Test Crossmatch 10/30/16 10/30/16 10/31/16 17:11 23:56 00:40 WBC RBC Hgb Hct MCV MCH MCHC RDW Plt Count Lymph % (Auto) [place] % (Auto) Lymph # [place] # Baso # Seg Neutrophils % Seg Neuts % (Manual) Lymphocytes % (Manual) Monocytes % (Manual) Eosinophils % (Manual) Basophils % (Manual) Nucleated RBC % Seg Neutrophils # Seg Neutrophils # Man Lymphocytes # (Manual) Monocytes # (Manual) Eosinophils # (Manual) Basophils # (Manual) PT INR Fibrinogen dRVVT Confirm Interp Factor V Activity POC ABG pH POC ABG pCO2 POC ABG pO2 ABG pO2 ABG HCO3 ABG Base Excess ABG Hemoglobin Oxyhemoglobin Sodium Potassium Chloride Carbon Dioxide BUN Creatinine Glucose POC Glucose 106 H 117 H 120 H Lactic Acid Calcium Phosphorus Magnesium Direct Bilirubin AST ALT Alkaline Phosphatase Lactate Dehydrogenase Troponin T C-Reactive Protein Total Protein Albumin Prealbumin Triglycerides Cholesterol LDL Cholesterol Direct HDL Cholesterol Urine pH Urine WBC (Auto) Urine Creatinine Urine Total Protein Fluid Total Protein Vancomycin Trough Rheumatoid Factor Complement C4 Miscellaneous Test Crossmatch 10/31/16 10/31/16 10/31/16 05:43 07:15 07:15 WBC 12.1 H RBC 2.63 L Hgb 7.7 L Hct 23.3 L MCV MCH MCHC RDW 16.7 H Plt Count Lymph % (Auto) 11.[address] [place] % (Auto) 7.7 H Lymph # [place] # 0.9 H Baso # Seg Neutrophils % 78.0 H Seg Neuts % (Manual) Lymphocytes % (Manual) Monocytes % (Manual) Eosinophils % (Manual) Basophils % (Manual) Nucleated RBC % Seg Neutrophils # 9.4 H Seg Neutrophils # Man Lymphocytes # (Manual) Monocytes # (Manual) Eosinophils # (Manual) Basophils # (Manual) PT INR Fibrinogen dRVVT Confirm Interp Factor V Activity POC ABG pH POC ABG pCO2 POC ABG pO2 ABG pO2 ABG HCO3 ABG Base Excess ABG Hemoglobin Oxyhemoglobin Sodium Potassium Chloride 96.4 L Carbon Dioxide 21 L BUN 99 H Creatinine 2.6 H Glucose 144 H POC Glucose 125 H Lactic Acid Calcium Phosphorus 4.80 H Magnesium Direct Bilirubin AST ALT Alkaline Phosphatase Lactate Dehydrogenase Troponin T C-Reactive Protein Total Protein Albumin Prealbumin Triglycerides Cholesterol LDL Cholesterol Direct HDL Cholesterol Urine pH Urine WBC (Auto) Urine Creatinine Urine Total Protein Fluid Total Protein Vancomycin Trough Rheumatoid Factor Complement C4 Miscellaneous Test Crossmatch 10/31/16 10/31/16 11/01/16 11:46 18:34 00:20 WBC RBC Hgb Hct MCV MCH MCHC RDW Plt Count Lymph % (Auto) [place] % (Auto) Lymph # [place] # Baso # Seg Neutrophils % Seg Neuts % (Manual) Lymphocytes % (Manual) Monocytes % (Manual) Eosinophils % (Manual) Basophils % (Manual) Nucleated RBC % Seg Neutrophils # Seg Neutrophils # Man Lymphocytes # (Manual) Monocytes # (Manual) Eosinophils # (Manual) Basophils # (Manual) PT INR Fibrinogen dRVVT Confirm Interp Factor V Activity POC ABG pH POC ABG pCO2 POC ABG pO2 ABG pO2 ABG HCO3 ABG Base Excess ABG Hemoglobin Oxyhemoglobin Sodium Potassium Chloride Carbon Dioxide BUN Creatinine Glucose POC Glucose 159 H 140 H 132 H Lactic Acid Calcium Phosphorus Magnesium Direct Bilirubin AST ALT Alkaline Phosphatase Lactate Dehydrogenase Troponin T C-Reactive Protein Total Protein Albumin Prealbumin Triglycerides Cholesterol LDL Cholesterol Direct HDL Cholesterol Urine pH Urine WBC (Auto) Urine Creatinine Urine Total Protein Fluid Total Protein Vancomycin Trough Rheumatoid Factor Complement C4 Miscellaneous Test Crossmatch 11/01/16 11/01/16 11/01/16 04:55 04:55 06:11 WBC 11.2 H RBC 2.68 L Hgb 7.5 L Hct 23.7 L MCV MCH MCHC RDW 16.1 H Plt Count Lymph % (Auto) [place] % (Auto) 9.8 H Lymph # [place] # 1.1 H Baso # Seg Neutrophils % 70.8 H Seg Neuts % (Manual) Lymphocytes % (Manual) Monocytes % (Manual) Eosinophils % (Manual) Basophils % (Manual) Nucleated RBC % Seg Neutrophils # 7.9 H Seg Neutrophils # Man Lymphocytes # (Manual) Monocytes # (Manual) Eosinophils # (Manual) Basophils # (Manual) PT INR Fibrinogen dRVVT Confirm Interp Factor V Activity POC ABG pH POC ABG pCO2 POC ABG pO2 ABG pO2 ABG HCO3 ABG Base Excess ABG Hemoglobin Oxyhemoglobin Sodium Potassium 3.3 L D Chloride Carbon Dioxide BUN 61 H Creatinine 1.9 H Glucose 114 H POC Glucose 115 H Lactic Acid Calcium Phosphorus 1.80 L D Magnesium Direct Bilirubin AST ALT Alkaline Phosphatase Lactate Dehydrogenase Troponin T C-Reactive Protein Total Protein Albumin Prealbumin Triglycerides Cholesterol LDL Cholesterol Direct HDL Cholesterol Urine pH Urine WBC (Auto) Urine Creatinine Urine Total Protein Fluid Total Protein Vancomycin Trough Rheumatoid Factor Complement C4 Miscellaneous Test Crossmatch 11/01/16 11/01/16 11/01/16 12:29 18:23 23:58 WBC RBC Hgb Hct MCV MCH MCHC RDW Plt Count Lymph % (Auto) [place] % (Auto) Lymph # [place] # Baso # Seg Neutrophils % Seg Neuts % (Manual) Lymphocytes % (Manual) Monocytes % (Manual) Eosinophils % (Manual) Basophils % (Manual) Nucleated RBC % Seg Neutrophils # Seg Neutrophils # Man Lymphocytes # (Manual) Monocytes # (Manual) Eosinophils # (Manual) Basophils # (Manual) PT INR Fibrinogen dRVVT Confirm Interp Factor V Activity POC ABG pH POC ABG pCO2 POC ABG pO2 ABG pO2 ABG HCO3 ABG Base Excess ABG Hemoglobin Oxyhemoglobin Sodium Potassium Chloride Carbon Dioxide BUN Creatinine Glucose POC Glucose 142 H 143 H 128 H Lactic Acid Calcium Phosphorus Magnesium Direct Bilirubin AST ALT Alkaline Phosphatase Lactate Dehydrogenase Troponin T C-Reactive Protein Total Protein Albumin Prealbumin Triglycerides Cholesterol LDL Cholesterol Direct HDL Cholesterol Urine pH Urine WBC (Auto) Urine Creatinine Urine Total Protein Fluid Total Protein Vancomycin Trough Rheumatoid Factor Complement C4 Miscellaneous Test Crossmatch 11/02/16 11/02/16 11/02/16 04:16 05:29 11:58 WBC RBC Hgb Hct MCV MCH MCHC RDW Plt Count Lymph % (Auto) [place] % (Auto) Lymph # [place] # Baso # Seg Neutrophils % Seg Neuts % (Manual) Lymphocytes % (Manual) Monocytes % (Manual) Eosinophils % (Manual) Basophils % (Manual) Nucleated RBC % Seg Neutrophils # Seg Neutrophils # Man Lymphocytes # (Manual) Monocytes # (Manual) Eosinophils # (Manual) Basophils # (Manual) PT INR Fibrinogen dRVVT Confirm Interp Factor V Activity POC ABG pH POC ABG pCO2 POC ABG pO2 ABG pO2 ABG HCO3 ABG Base Excess ABG Hemoglobin Oxyhemoglobin Sodium Potassium 3.1 L Chloride Carbon Dioxide BUN 73 H Creatinine 2.3 H Glucose 112 H POC Glucose 135 H 149 H Lactic Acid Calcium Phosphorus Magnesium Direct Bilirubin AST ALT Alkaline Phosphatase Lactate Dehydrogenase Troponin T C-Reactive Protein Total Protein Albumin Prealbumin Triglycerides Cholesterol LDL Cholesterol Direct HDL Cholesterol Urine pH Urine WBC (Auto) Urine Creatinine Urine Total Protein Fluid Total Protein Vancomycin Trough Rheumatoid Factor Complement C4 Miscellaneous Test Crossmatch 11/02/16 11/02/16 11/03/16 17:42 22:54 06:00 WBC RBC Hgb Hct MCV MCH MCHC RDW Plt Count Lymph % (Auto) [place] % (Auto) Lymph # [place] # Baso # Seg Neutrophils % Seg Neuts % (Manual) Lymphocytes % (Manual) Monocytes % (Manual) Eosinophils % (Manual) Basophils % (Manual) Nucleated RBC % Seg Neutrophils # Seg Neutrophils # Man Lymphocytes # (Manual) Monocytes # (Manual) Eosinophils # (Manual) Basophils # (Manual) PT INR Fibrinogen dRVVT Confirm Interp Factor V Activity POC ABG pH POC ABG pCO2 POC ABG pO2 ABG pO2 ABG HCO3 ABG Base Excess ABG Hemoglobin Oxyhemoglobin Sodium Potassium Chloride 96.7 L Carbon Dioxide BUN 41 H Creatinine 1.5 H Glucose 145 H POC Glucose 182 H 115 H Lactic Acid Calcium Phosphorus 1.60 L D Magnesium 1.50 L Direct Bilirubin AST ALT Alkaline Phosphatase Lactate Dehydrogenase Troponin T C-Reactive Protein Total Protein Albumin Prealbumin Triglycerides Cholesterol LDL Cholesterol Direct HDL Cholesterol Urine pH Urine WBC (Auto) Urine Creatinine Urine Total Protein Fluid Total Protein Vancomycin Trough Rheumatoid Factor Complement C4 Miscellaneous Test Crossmatch 11/03/16 11/03/16 11/03/16 11:53 17:45 23:37 WBC RBC Hgb Hct MCV MCH MCHC RDW Plt Count Lymph % (Auto) [place] % (Auto) Lymph # [place] # Baso # Seg Neutrophils % Seg Neuts % (Manual) Lymphocytes % (Manual) Monocytes % (Manual) Eosinophils % (Manual) Basophils % (Manual) Nucleated RBC % Seg Neutrophils # Seg Neutrophils # Man Lymphocytes # (Manual) Monocytes # (Manual) Eosinophils # (Manual) Basophils # (Manual) PT INR Fibrinogen dRVVT Confirm Interp Factor V Activity POC ABG pH POC ABG pCO2 POC ABG pO2 ABG pO2 ABG HCO3 ABG Base Excess ABG Hemoglobin Oxyhemoglobin Sodium Potassium Chloride Carbon Dioxide BUN Creatinine Glucose POC Glucose 131 H 134 H 113 H Lactic Acid Calcium Phosphorus Magnesium Direct Bilirubin AST ALT Alkaline Phosphatase Lactate Dehydrogenase Troponin T C-Reactive Protein Total Protein Albumin Prealbumin Triglycerides Cholesterol LDL Cholesterol Direct HDL Cholesterol Urine pH Urine WBC (Auto) Urine Creatinine Urine Total Protein Fluid Total Protein Vancomycin Trough Rheumatoid Factor Complement C4 Miscellaneous Test Crossmatch 11/04/16 11/04/16 11/04/16 05:41 06:00 12:10 WBC RBC Hgb Hct MCV MCH MCHC RDW Plt Count Lymph % (Auto) [place] % (Auto) Lymph # [place] # Baso # Seg Neutrophils % Seg Neuts % (Manual) Lymphocytes % (Manual) Monocytes % (Manual) Eosinophils % (Manual) Basophils % (Manual) Nucleated RBC % Seg Neutrophils # Seg Neutrophils # Man Lymphocytes # (Manual) Monocytes # (Manual) Eosinophils # (Manual) Basophils # (Manual) PT INR Fibrinogen dRVVT Confirm Interp Factor V Activity POC ABG pH POC ABG pCO2 POC ABG pO2 ABG pO2 ABG HCO3 ABG Base Excess ABG Hemoglobin Oxyhemoglobin Sodium Potassium Chloride 96.7 L Carbon Dioxide BUN 52 H Creatinine 1.9 H Glucose 126 H POC Glucose 137 H 191 H Lactic Acid Calcium Phosphorus Magnesium Direct Bilirubin AST ALT Alkaline Phosphatase Lactate Dehydrogenase Troponin T C-Reactive Protein Total Protein Albumin Prealbumin Triglycerides Cholesterol LDL Cholesterol Direct HDL Cholesterol Urine pH Urine WBC (Auto) Urine Creatinine Urine Total Protein Fluid Total Protein Vancomycin Trough Rheumatoid Factor Complement C4 Miscellaneous Test Crossmatch 11/04/16 11/05/16 11/05/16 22:57 03:10 05:10 WBC RBC Hgb Hct MCV MCH MCHC RDW Plt Count Lymph % (Auto) [place] % (Auto) Lymph # [place] # Baso # Seg Neutrophils % Seg Neuts % (Manual) Lymphocytes % (Manual) Monocytes % (Manual) Eosinophils % (Manual) Basophils % (Manual) Nucleated RBC % Seg Neutrophils # Seg Neutrophils # Man Lymphocytes # (Manual) Monocytes # (Manual) Eosinophils # (Manual) Basophils # (Manual) PT INR Fibrinogen dRVVT Confirm Interp Factor V Activity POC ABG pH POC ABG pCO2 POC ABG pO2 ABG pO2 ABG HCO3 ABG Base Excess ABG Hemoglobin Oxyhemoglobin Sodium 136 L Potassium Chloride 97.2 L Carbon Dioxide BUN 32 H Creatinine 1.3 H Glucose 123 H POC Glucose 125 H 108 H Lactic Acid Calcium 7.8 L Phosphorus Magnesium Direct Bilirubin AST ALT Alkaline Phosphatase Lactate Dehydrogenase Troponin T C-Reactive Protein Total Protein Albumin Prealbumin Triglycerides Cholesterol LDL Cholesterol Direct HDL Cholesterol Urine pH Urine WBC (Auto) Urine Creatinine Urine Total Protein Fluid Total Protein Vancomycin Trough Rheumatoid Factor Complement C4 Miscellaneous Test Crossmatch 11/05/16 11/05/16 11/05/16 12:23 13:09 13:25 WBC RBC Hgb Hct MCV MCH MCHC RDW Plt Count Lymph % (Auto) [place] % (Auto) Lymph # [place] # Baso # Seg Neutrophils % Seg Neuts % (Manual) Lymphocytes % (Manual) Monocytes % (Manual) Eosinophils % (Manual) Basophils % (Manual) Nucleated RBC % Seg Neutrophils # Seg Neutrophils # Man Lymphocytes # (Manual) Monocytes # (Manual) Eosinophils # (Manual) Basophils # (Manual) PT INR Fibrinogen dRVVT Confirm Interp Factor V Activity POC ABG pH POC ABG pCO2 POC ABG pO2 ABG pO2 ABG HCO3 ABG Base Excess ABG Hemoglobin Oxyhemoglobin Sodium Potassium Chloride Carbon Dioxide BUN Creatinine Glucose POC Glucose 124 H Lactic Acid Calcium Phosphorus Magnesium Direct Bilirubin AST ALT Alkaline Phosphatase Lactate Dehydrogenase Troponin T C-Reactive Protein 11.40 H Total Protein Albumin Prealbumin Triglycerides Cholesterol LDL Cholesterol Direct HDL Cholesterol Urine pH 9.0 H Urine WBC (Auto) Urine Creatinine Urine Total Protein Fluid Total Protein Vancomycin Trough Rheumatoid Factor Complement C4 Miscellaneous Test Crossmatch 11/05/16 11/05/16 11/05/16 13:25 17:54 23:42 WBC RBC Hgb Hct MCV MCH MCHC RDW Plt Count Lymph % (Auto) [place] % (Auto) Lymph # [place] # Baso # Seg Neutrophils % Seg Neuts % (Manual) Lymphocytes % (Manual) Monocytes % (Manual) Eosinophils % (Manual) Basophils % (Manual) Nucleated RBC % Seg Neutrophils # Seg Neutrophils # Man Lymphocytes # (Manual) Monocytes # (Manual) Eosinophils # (Manual) Basophils # (Manual) PT INR Fibrinogen dRVVT Confirm Interp Factor V Activity POC ABG pH POC ABG pCO2 POC ABG pO2 ABG pO2 ABG HCO3 ABG Base Excess ABG Hemoglobin Oxyhemoglobin Sodium Potassium Chloride Carbon Dioxide BUN Creatinine Glucose POC Glucose 114 H 134 H Lactic Acid Calcium Phosphorus Magnesium Direct Bilirubin AST ALT Alkaline Phosphatase Lactate Dehydrogenase Troponin T C-Reactive Protein Total Protein Albumin Prealbumin Triglycerides Cholesterol LDL Cholesterol Direct HDL Cholesterol Urine pH Urine WBC (Auto) Urine Creatinine Urine Total Protein Fluid Total Protein Vancomycin Trough Rheumatoid Factor Complement C4 Miscellaneous Test Flexitest 1 H Crossmatch 11/06/16 11/06/16 11/06/16 04:56 06:25 06:25 WBC RBC 2.50 L Hgb 7.3 L Hct 22.5 L MCV MCH MCHC RDW 16.9 H Plt Count Lymph % (Auto) [place] % (Auto) 10.5 H Lymph # [place] # 1.1 H Baso # Seg Neutrophils % Seg Neuts % (Manual) Lymphocytes % (Manual) Monocytes % (Manual) Eosinophils % (Manual) Basophils % (Manual) Nucleated RBC % Seg Neutrophils # Seg Neutrophils # Man Lymphocytes # (Manual) Monocytes # (Manual) Eosinophils # (Manual) Basophils # (Manual) PT INR Fibrinogen dRVVT Confirm Interp Factor V Activity POC ABG pH POC ABG pCO2 POC ABG pO2 ABG pO2 ABG HCO3 ABG Base Excess ABG Hemoglobin Oxyhemoglobin Sodium Potassium 5.1 H Chloride 95.9 L Carbon Dioxide BUN 52 H Creatinine 1.8 H Glucose 117 H POC Glucose 120 H Lactic Acid Calcium Phosphorus Magnesium Direct Bilirubin AST 103 H ALT 77 H Alkaline Phosphatase 285 H Lactate Dehydrogenase Troponin T C-Reactive Protein Total Protein 6.2 L Albumin 1.8 L Prealbumin 0.180 L Triglycerides Cholesterol LDL Cholesterol Direct HDL Cholesterol Urine pH Urine WBC (Auto) Urine Creatinine Urine Total Protein Fluid Total Protein Vancomycin Trough Rheumatoid Factor Complement C4 Miscellaneous Test Crossmatch 11/06/16 11/06/16 11/06/16 11:56 17:14 23:52 WBC RBC Hgb Hct MCV MCH MCHC RDW Plt Count Lymph % (Auto) [place] % (Auto) Lymph # [place] # Baso # Seg Neutrophils % Seg Neuts % (Manual) Lymphocytes % (Manual) Monocytes % (Manual) Eosinophils % (Manual) Basophils % (Manual) Nucleated RBC % Seg Neutrophils # Seg Neutrophils # Man Lymphocytes # (Manual) Monocytes # (Manual) Eosinophils # (Manual) Basophils # (Manual) PT INR Fibrinogen dRVVT Confirm Interp Factor V Activity POC ABG pH POC ABG pCO2 POC ABG pO2 ABG pO2 ABG HCO3 ABG Base Excess ABG Hemoglobin Oxyhemoglobin Sodium Potassium Chloride Carbon Dioxide BUN Creatinine Glucose POC Glucose 141 H 125 H 130 H Lactic Acid Calcium Phosphorus Magnesium Direct Bilirubin AST ALT Alkaline Phosphatase Lactate Dehydrogenase Troponin T C-Reactive Protein Total Protein Albumin Prealbumin Triglycerides Cholesterol LDL Cholesterol Direct HDL Cholesterol Urine pH Urine WBC (Auto) Urine Creatinine Urine Total Protein Fluid Total Protein Vancomycin Trough Rheumatoid Factor Complement C4 Miscellaneous Test Crossmatch 11/07/16 11/07/16 11/07/16 06:30 06:30 09:37 WBC RBC 2.18 L Hgb 6.3 L Hct 19.7 L* MCV MCH MCHC RDW 16.8 H Plt Count Lymph % (Auto) [place] % (Auto) 10.0 H Lymph # [place] # 1.0 H Baso # Seg Neutrophils % Seg Neuts % (Manual) Lymphocytes % (Manual) Monocytes % (Manual) Eosinophils % (Manual) Basophils % (Manual) Nucleated RBC % Seg Neutrophils # Seg Neutrophils # Man Lymphocytes # (Manual) Monocytes # (Manual) Eosinophils # (Manual) Basophils # (Manual) PT INR Fibrinogen dRVVT Confirm Interp Factor V Activity POC ABG pH POC ABG pCO2 POC ABG pO2 ABG pO2 ABG HCO3 ABG Base Excess ABG Hemoglobin Oxyhemoglobin Sodium 135 L Potassium Chloride 95.6 L Carbon Dioxide BUN 70 H Creatinine 2.0 H Glucose 126 H POC Glucose Lactic Acid Calcium Phosphorus Magnesium Direct Bilirubin AST ALT Alkaline Phosphatase Lactate Dehydrogenase Troponin T C-Reactive Protein Total Protein Albumin Prealbumin Triglycerides Cholesterol LDL Cholesterol Direct HDL Cholesterol Urine pH Urine WBC (Auto) Urine Creatinine Urine Total Protein Fluid Total Protein Vancomycin Trough Rheumatoid Factor Complement C4 Miscellaneous Test Crossmatch See Detail 11/07/16 11/07/16 11/07/16 12:52 18:51 21:26 WBC RBC Hgb Hct MCV MCH MCHC RDW Plt Count Lymph % (Auto) [place] % (Auto) Lymph # [place] # Baso # Seg Neutrophils % Seg Neuts % (Manual) Lymphocytes % (Manual) Monocytes % (Manual) Eosinophils % (Manual) Basophils % (Manual) Nucleated RBC % Seg Neutrophils # Seg Neutrophils # Man Lymphocytes # (Manual) Monocytes # (Manual) Eosinophils # (Manual) Basophils # (Manual) PT INR Fibrinogen dRVVT Confirm Interp Factor V Activity POC ABG pH 7.523 H POC ABG pCO2 34.6 L POC ABG pO2 53 L ABG pO2 ABG HCO3 ABG Base Excess ABG Hemoglobin Oxyhemoglobin Sodium Potassium Chloride Carbon Dioxide BUN Creatinine Glucose POC Glucose 142 H 155 H Lactic Acid Calcium Phosphorus Magnesium Direct Bilirubin AST ALT Alkaline Phosphatase Lactate Dehydrogenase Troponin T C-Reactive Protein Total Protein Albumin Prealbumin Triglycerides Cholesterol LDL Cholesterol Direct HDL Cholesterol Urine pH Urine WBC (Auto) Urine Creatinine Urine Total Protein Fluid Total Protein Vancomycin Trough Rheumatoid Factor Complement C4 Miscellaneous Test Crossmatch 11/07/16 11/08/16 11/08/16 21:34 13:03 23:37 WBC RBC 2.63 L Hgb 7.7 L Hct 22.7 L MCV MCH MCHC RDW 17.0 H Plt Count Lymph % (Auto) [place] % (Auto) Lymph # [place] # Baso # Seg Neutrophils % Seg Neuts % (Manual) Lymphocytes % (Manual) Monocytes % (Manual) Eosinophils % (Manual) Basophils % (Manual) Nucleated RBC % Seg Neutrophils # Seg Neutrophils # Man Lymphocytes # (Manual) Monocytes # (Manual) Eosinophils # (Manual) Basophils # (Manual) PT INR Fibrinogen dRVVT Confirm Interp Factor V Activity POC ABG pH 7.478 H POC ABG pCO2 34.0 L POC ABG pO2 50 L ABG pO2 ABG HCO3 ABG Base Excess ABG Hemoglobin Oxyhemoglobin Sodium Potassium Chloride Carbon Dioxide BUN Creatinine Glucose POC Glucose 113 H Lactic Acid Calcium Phosphorus Magnesium Direct Bilirubin AST ALT Alkaline Phosphatase Lactate Dehydrogenase Troponin T C-Reactive Protein Total Protein Albumin Prealbumin Triglycerides Cholesterol LDL Cholesterol Direct HDL Cholesterol Urine pH Urine WBC (Auto) Urine Creatinine Urine Total Protein Fluid Total Protein Vancomycin Trough Rheumatoid Factor Complement C4 Miscellaneous Test Crossmatch 11/09/16 11/09/16 11/09/16 04:35 10:15 18:21 WBC RBC 2.68 L Hgb 7.8 L Hct 23.3 L MCV MCH MCHC RDW 17.0 H Plt Count Lymph % (Auto) [place] % (Auto) 12.1 H Lymph # [place] # 1.1 H Baso # Seg Neutrophils % Seg Neuts % (Manual) Lymphocytes % (Manual) Monocytes % (Manual) Eosinophils % (Manual) Basophils % (Manual) Nucleated RBC % Seg Neutrophils # Seg Neutrophils # Man Lymphocytes # (Manual) Monocytes # (Manual) Eosinophils # (Manual) Basophils # (Manual) PT INR Fibrinogen dRVVT Confirm Interp Factor V Activity POC ABG pH POC ABG pCO2 POC ABG pO2 ABG pO2 ABG HCO3 ABG Base Excess ABG Hemoglobin Oxyhemoglobin Sodium Potassium Chloride Carbon Dioxide BUN 51 H Creatinine 1.8 H Glucose POC Glucose 60 L Lactic Acid Calcium 8.3 L Phosphorus Magnesium Direct Bilirubin AST ALT Alkaline Phosphatase Lactate Dehydrogenase Troponin T C-Reactive Protein Total Protein Albumin Prealbumin Triglycerides Cholesterol LDL Cholesterol Direct HDL Cholesterol Urine pH Urine WBC (Auto) Urine Creatinine Urine Total Protein Fluid Total Protein Vancomycin Trough Rheumatoid Factor Complement C4 Miscellaneous Test Crossmatch 11/09/16 11/10/16 11/10/16 18:55 07:00 11:51 WBC RBC Hgb Hct MCV MCH MCHC RDW Plt Count Lymph % (Auto) [place] % (Auto) Lymph # [place] # Baso # Seg Neutrophils % Seg Neuts % (Manual) Lymphocytes % (Manual) Monocytes % (Manual) Eosinophils % (Manual) Basophils % (Manual) Nucleated RBC % Seg Neutrophils # Seg Neutrophils # Man Lymphocytes # (Manual) Monocytes # (Manual) Eosinophils # (Manual) Basophils # (Manual) PT INR Fibrinogen dRVVT Confirm Interp Factor V Activity POC ABG pH POC ABG pCO2 POC ABG pO2 ABG pO2 ABG HCO3 ABG Base Excess ABG Hemoglobin Oxyhemoglobin Sodium Potassium 3.0 L D Chloride 97.4 L Carbon Dioxide BUN 28 H Creatinine 1.3 H Glucose POC Glucose 68 L 120 H Lactic Acid Calcium 7.8 L Phosphorus Magnesium Direct Bilirubin AST ALT Alkaline Phosphatase Lactate Dehydrogenase Troponin T C-Reactive Protein Total Protein Albumin Prealbumin Triglycerides Cholesterol LDL Cholesterol Direct HDL Cholesterol Urine pH Urine WBC (Auto) Urine Creatinine Urine Total Protein Fluid Total Protein Vancomycin Trough Rheumatoid Factor Complement C4 Miscellaneous Test Crossmatch 11/10/16 11/11/16 11/11/16 14:20 06:59 06:59 WBC RBC 2.81 L Hgb 8.1 L Hct 24.4 L MCV MCH MCHC RDW 16.4 H Plt Count Lymph % (Auto) [place] % (Auto) 10.8 H Lymph # [place] # 1.0 H Baso # Seg Neutrophils % Seg Neuts % (Manual) Lymphocytes % (Manual) Monocytes % (Manual) Eosinophils % (Manual) Basophils % (Manual) Nucleated RBC % Seg Neutrophils # Seg Neutrophils # Man Lymphocytes # (Manual) Monocytes # (Manual) Eosinophils # (Manual) Basophils # (Manual) PT INR Fibrinogen dRVVT Confirm Interp Factor V Activity POC ABG pH POC ABG pCO2 POC ABG pO2 ABG pO2 ABG HCO3 ABG Base Excess ABG Hemoglobin Oxyhemoglobin Sodium Potassium Chloride Carbon Dioxide BUN Creatinine Glucose POC Glucose Lactic Acid Calcium Phosphorus Magnesium Direct Bilirubin AST ALT Alkaline Phosphatase Lactate Dehydrogenase 196 H Troponin T C-Reactive Protein Total Protein 6.1 L Albumin Prealbumin Triglycerides Cholesterol LDL Cholesterol Direct HDL Cholesterol Urine pH Urine WBC (Auto) Urine Creatinine Urine Total Protein Fluid Total Protein < 3.0 L Vancomycin Trough Rheumatoid Factor Complement C4 Miscellaneous Test Crossmatch 11/11/16 11/11/16 11/12/16 06:59 09:50 04:00 WBC RBC Hgb Hct MCV MCH MCHC RDW Plt Count Lymph % (Auto) [place] % (Auto) Lymph # [place] # Baso # Seg Neutrophils % Seg Neuts % (Manual) Lymphocytes % (Manual) Monocytes % (Manual) Eosinophils % (Manual) Basophils % (Manual) Nucleated RBC % Seg Neutrophils # Seg Neutrophils # Man Lymphocytes # (Manual) Monocytes # (Manual) Eosinophils # (Manual) Basophils # (Manual) PT INR 1.18 H Fibrinogen dRVVT Confirm Interp Factor V Activity POC ABG pH POC ABG pCO2 POC ABG pO2 ABG pO2 ABG HCO3 ABG Base Excess ABG Hemoglobin Oxyhemoglobin Sodium 136 L 133 L Potassium Chloride 96.1 L 94.8 L Carbon Dioxide 21 L BUN 37 H 42 H Creatinine 1.8 H 2.0 H Glucose POC Glucose Lactic Acid Calcium Phosphorus Magnesium Direct Bilirubin AST ALT Alkaline Phosphatase Lactate Dehydrogenase Troponin T C-Reactive Protein Total Protein Albumin Prealbumin Triglycerides Cholesterol LDL Cholesterol Direct HDL Cholesterol Urine pH Urine WBC (Auto) Urine Creatinine Urine Total Protein Fluid Total Protein Vancomycin Trough Rheumatoid Factor Complement C4 Miscellaneous Test Crossmatch 11/12/16 11/12/16 11/13/16 04:00 23:55 05:53 WBC RBC Hgb 8.9 L Hct 27.2 L MCV MCH MCHC RDW Plt Count Lymph % (Auto) [place] % (Auto) Lymph # [place] # Baso # Seg Neutrophils % Seg Neuts % (Manual) Lymphocytes % (Manual) Monocytes % (Manual) Eosinophils % (Manual) Basophils % (Manual) Nucleated RBC % Seg Neutrophils # Seg Neutrophils # Man Lymphocytes # (Manual) Monocytes # (Manual) Eosinophils # (Manual) Basophils # (Manual) PT INR Fibrinogen dRVVT Confirm Interp Factor V Activity POC ABG pH POC ABG pCO2 POC ABG pO2 ABG pO2 ABG HCO3 ABG Base Excess ABG Hemoglobin Oxyhemoglobin Sodium Potassium Chloride Carbon Dioxide BUN Creatinine Glucose POC Glucose 132 H 120 H Lactic Acid Calcium Phosphorus Magnesium Direct Bilirubin AST ALT Alkaline Phosphatase Lactate Dehydrogenase Troponin T C-Reactive Protein Total Protein Albumin Prealbumin Triglycerides Cholesterol LDL Cholesterol Direct HDL Cholesterol Urine pH Urine WBC (Auto) Urine Creatinine Urine Total Protein Fluid Total Protein Vancomycin Trough Rheumatoid Factor Complement C4 Miscellaneous Test Crossmatch 11/13/16 11/13/16 11/13/16 11:43 17:09 23:41 WBC RBC Hgb Hct MCV MCH MCHC RDW Plt Count Lymph % (Auto) [place] % (Auto) Lymph # [place] # Baso # Seg Neutrophils % Seg Neuts % (Manual) Lymphocytes % (Manual) Monocytes % (Manual) Eosinophils % (Manual) Basophils % (Manual) Nucleated RBC % Seg Neutrophils # Seg Neutrophils # Man Lymphocytes # (Manual) Monocytes # (Manual) Eosinophils # (Manual) Basophils # (Manual) PT INR Fibrinogen dRVVT Confirm Interp Factor V Activity POC ABG pH POC ABG pCO2 POC ABG pO2 ABG pO2 ABG HCO3 ABG Base Excess ABG Hemoglobin Oxyhemoglobin Sodium Potassium Chloride Carbon Dioxide BUN Creatinine Glucose POC Glucose 114 H 113 H 108 H Lactic Acid Calcium Phosphorus Magnesium Direct Bilirubin AST ALT Alkaline Phosphatase Lactate Dehydrogenase Troponin T C-Reactive Protein Total Protein Albumin Prealbumin Triglycerides Cholesterol LDL Cholesterol Direct HDL Cholesterol Urine pH Urine WBC (Auto) Urine Creatinine Urine Total Protein Fluid Total Protein Vancomycin Trough Rheumatoid Factor Complement C4 Miscellaneous Test Crossmatch 11/13/16 11/15/16 11/15/16 Unknown 00:37 03:30 WBC 11.2 H RBC 2.72 L Hgb 7.6 L Hct 23.4 L MCV MCH MCHC RDW 16.5 H Plt Count Lymph % (Auto) [place] % (Auto) Lymph # [place] # Baso # Seg Neutrophils % Seg Neuts % (Manual) Lymphocytes % (Manual) Monocytes % (Manual) Eosinophils % (Manual) Basophils % (Manual) Nucleated RBC % Seg Neutrophils # Seg Neutrophils # Man Lymphocytes # (Manual) Monocytes # (Manual) Eosinophils # (Manual) Basophils # (Manual) PT INR Fibrinogen dRVVT Confirm Interp Factor V Activity POC ABG pH POC ABG pCO2 POC ABG pO2 ABG pO2 ABG HCO3 ABG Base Excess ABG Hemoglobin Oxyhemoglobin Sodium 135 L Potassium Chloride 95.2 L Carbon Dioxide BUN 52 H Creatinine 2.2 H Glucose POC Glucose 108 H Lactic Acid Calcium Phosphorus Magnesium Direct Bilirubin AST ALT Alkaline Phosphatase Lactate Dehydrogenase Troponin T C-Reactive Protein Total Protein Albumin Prealbumin Triglycerides Cholesterol LDL Cholesterol Direct HDL Cholesterol Urine pH Urine WBC (Auto) Urine Creatinine Urine Total Protein Fluid Total Protein Vancomycin Trough Rheumatoid Factor Complement C4 Miscellaneous Test Crossmatch 11/15/16 11/15/16 11/15/16 03:30 05:04 11:50 WBC RBC Hgb Hct MCV MCH MCHC RDW Plt Count Lymph % (Auto) [place] % (Auto) Lymph # [place] # Baso # Seg Neutrophils % Seg Neuts % (Manual) Lymphocytes % (Manual) Monocytes % (Manual) Eosinophils % (Manual) Basophils % (Manual) Nucleated RBC % Seg Neutrophils # Seg Neutrophils # Man Lymphocytes # (Manual) Monocytes # (Manual) Eosinophils # (Manual) Basophils # (Manual) PT INR Fibrinogen dRVVT Confirm Interp Factor V Activity POC ABG pH POC ABG pCO2 POC ABG pO2 ABG pO2 ABG HCO3 ABG Base Excess ABG Hemoglobin Oxyhemoglobin Sodium Potassium 3.4 L Chloride Carbon Dioxide BUN 25 H Creatinine 1.5 H Glucose 103 H POC Glucose 121 H 144 H Lactic Acid Calcium Phosphorus Magnesium Direct Bilirubin AST ALT Alkaline Phosphatase Lactate Dehydrogenase Troponin T C-Reactive Protein Total Protein Albumin Prealbumin Triglycerides Cholesterol LDL Cholesterol Direct HDL Cholesterol Urine pH Urine WBC (Auto) Urine Creatinine Urine Total Protein Fluid Total Protein Vancomycin Trough Rheumatoid Factor Complement C4 Miscellaneous Test Crossmatch 11/15/16 11/15/16 11/16/16 21:28 23:20 11:44 WBC RBC Hgb Hct MCV MCH MCHC RDW Plt Count Lymph % (Auto) [place] % (Auto) Lymph # [place] # Baso # Seg Neutrophils % Seg Neuts % (Manual) Lymphocytes % (Manual) Monocytes % (Manual) Eosinophils % (Manual) Basophils % (Manual) Nucleated RBC % Seg Neutrophils # Seg Neutrophils # Man Lymphocytes # (Manual) Monocytes # (Manual) Eosinophils # (Manual) Basophils # (Manual) PT INR Fibrinogen dRVVT Confirm Interp Factor V Activity POC ABG pH 7.462 H POC ABG pCO2 POC ABG pO2 71 L ABG pO2 ABG HCO3 ABG Base Excess ABG Hemoglobin Oxyhemoglobin Sodium Potassium Chloride Carbon Dioxide BUN Creatinine Glucose POC Glucose 116 H 133 H Lactic Acid Calcium Phosphorus Magnesium Direct Bilirubin AST ALT Alkaline Phosphatase Lactate Dehydrogenase Troponin T C-Reactive Protein Total Protein Albumin Prealbumin Triglycerides Cholesterol LDL Cholesterol Direct HDL Cholesterol Urine pH Urine WBC (Auto) Urine Creatinine Urine Total Protein Fluid Total Protein Vancomycin Trough Rheumatoid Factor Complement C4 Miscellaneous Test Crossmatch 11/16/16 11/16/16 11/16/16 12:20 17:05 23:35 WBC 11.7 H RBC 2.73 L Hgb 7.6 L Hct 23.7 L MCV MCH MCHC RDW 16.6 H Plt Count Lymph % (Auto) [place] % (Auto) Lymph # [place] # Baso # Seg Neutrophils % Seg Neuts % (Manual) Lymphocytes % (Manual) Monocytes % (Manual) Eosinophils % (Manual) Basophils % (Manual) Nucleated RBC % Seg Neutrophils # Seg Neutrophils # Man Lymphocytes # (Manual) Monocytes # (Manual) Eosinophils # (Manual) Basophils # (Manual) PT INR Fibrinogen dRVVT Confirm Interp Factor V Activity POC ABG pH POC ABG pCO2 POC ABG pO2 ABG pO2 ABG HCO3 ABG Base Excess ABG Hemoglobin Oxyhemoglobin Sodium Potassium Chloride Carbon Dioxide BUN Creatinine Glucose POC Glucose 154 H 125 H Lactic Acid Calcium Phosphorus Magnesium Direct Bilirubin AST ALT Alkaline Phosphatase Lactate Dehydrogenase Troponin T C-Reactive Protein Total Protein Albumin Prealbumin Triglycerides Cholesterol LDL Cholesterol Direct HDL Cholesterol Urine pH Urine WBC (Auto) Urine Creatinine Urine Total Protein Fluid Total Protein Vancomycin Trough Rheumatoid Factor Complement C4 Miscellaneous Test Crossmatch 11/17/16 11/17/16 11/17/16 03:20 03:20 03:20 WBC RBC 2.55 L Hgb 7.3 L Hct 21.9 L MCV MCH MCHC RDW 16.6 H Plt Count Lymph % (Auto) [place] % (Auto) 11.5 H Lymph # [place] # 1.1 H Baso # Seg Neutrophils % Seg Neuts % (Manual) Lymphocytes % (Manual) Monocytes % (Manual) Eosinophils % (Manual) Basophils % (Manual) Nucleated RBC % Seg Neutrophils # Seg Neutrophils # Man Lymphocytes # (Manual) Monocytes # (Manual) Eosinophils # (Manual) Basophils # (Manual) PT 16.8 H INR 1.37 H Fibrinogen dRVVT Confirm Interp Factor V Activity POC ABG pH POC ABG pCO2 POC ABG pO2 ABG pO2 ABG HCO3 ABG Base Excess ABG Hemoglobin Oxyhemoglobin Sodium Potassium 3.5 L Chloride Carbon Dioxide BUN 21 H Creatinine Glucose POC Glucose Lactic Acid Calcium 7.9 L Phosphorus Magnesium Direct Bilirubin AST ALT Alkaline Phosphatase Lactate Dehydrogenase Troponin T C-Reactive Protein Total Protein Albumin Prealbumin Triglycerides Cholesterol LDL Cholesterol Direct HDL Cholesterol Urine pH Urine WBC (Auto) Urine Creatinine Urine Total Protein Fluid Total Protein Vancomycin Trough Rheumatoid Factor Complement C4 Miscellaneous Test Crossmatch 11/17/16 11/17/16 11/17/16 06:34 11:21 21:22 WBC RBC Hgb Hct MCV MCH MCHC RDW Plt Count Lymph % (Auto) [place] % (Auto) Lymph # [place] # Baso # Seg Neutrophils % Seg Neuts % (Manual) Lymphocytes % (Manual) Monocytes % (Manual) Eosinophils % (Manual) Basophils % (Manual) Nucleated RBC % Seg Neutrophils # Seg Neutrophils # Man Lymphocytes # (Manual) Monocytes # (Manual) Eosinophils # (Manual) Basophils # (Manual) PT INR Fibrinogen dRVVT Confirm Interp Factor V Activity POC ABG pH 7.467 H POC ABG pCO2 POC ABG pO2 73 L ABG pO2 ABG HCO3 ABG Base Excess ABG Hemoglobin Oxyhemoglobin Sodium Potassium Chloride Carbon Dioxide BUN Creatinine Glucose POC Glucose 121 H 119 H Lactic Acid Calcium Phosphorus Magnesium Direct Bilirubin AST ALT Alkaline Phosphatase Lactate Dehydrogenase Troponin T C-Reactive Protein Total Protein Albumin Prealbumin Triglycerides Cholesterol LDL Cholesterol Direct HDL Cholesterol Urine pH Urine WBC (Auto) Urine Creatinine Urine Total Protein Fluid Total Protein Vancomycin Trough Rheumatoid Factor Complement C4 Miscellaneous Test Crossmatch 11/18/16 11/18/16 11/19/16 12:16 17:19 00:00 WBC RBC Hgb Hct MCV MCH MCHC RDW Plt Count Lymph % (Auto) [place] % (Auto) Lymph # [place] # Baso # Seg Neutrophils % Seg Neuts % (Manual) Lymphocytes % (Manual) Monocytes % (Manual) Eosinophils % (Manual) Basophils % (Manual) Nucleated RBC % Seg Neutrophils # Seg Neutrophils # Man Lymphocytes # (Manual) Monocytes # (Manual) Eosinophils # (Manual) Basophils # (Manual) PT INR Fibrinogen dRVVT Confirm Interp Factor V Activity POC ABG pH POC ABG pCO2 POC ABG pO2 ABG pO2 ABG HCO3 ABG Base Excess ABG Hemoglobin Oxyhemoglobin Sodium Potassium Chloride Carbon Dioxide BUN Creatinine Glucose POC Glucose 124 H 162 H 139 H Lactic Acid Calcium Phosphorus Magnesium Direct Bilirubin AST ALT Alkaline Phosphatase Lactate Dehydrogenase Troponin T C-Reactive Protein Total Protein Albumin Prealbumin Triglycerides Cholesterol LDL Cholesterol Direct HDL Cholesterol Urine pH Urine WBC (Auto) Urine Creatinine Urine Total Protein Fluid Total Protein Vancomycin Trough Rheumatoid Factor Complement C4 Miscellaneous Test Crossmatch 11/19/16 11/19/16 11/20/16 05:00 12:43 00:40 WBC RBC Hgb Hct MCV MCH MCHC RDW Plt Count Lymph % (Auto) [place] % (Auto) Lymph # [place] # Baso # Seg Neutrophils % Seg Neuts % (Manual) Lymphocytes % (Manual) Monocytes % (Manual) Eosinophils % (Manual) Basophils % (Manual) Nucleated RBC % Seg Neutrophils # Seg Neutrophils # Man Lymphocytes # (Manual) Monocytes # (Manual) Eosinophils # (Manual) Basophils # (Manual) PT INR Fibrinogen dRVVT Confirm Interp Factor V Activity POC ABG pH POC ABG pCO2 POC ABG pO2 ABG pO2 ABG HCO3 ABG Base Excess ABG Hemoglobin Oxyhemoglobin Sodium Potassium Chloride Carbon Dioxide BUN Creatinine Glucose POC Glucose 110 H 125 H 136 H Lactic Acid Calcium Phosphorus Magnesium Direct Bilirubin AST ALT Alkaline Phosphatase Lactate Dehydrogenase Troponin T C-Reactive Protein Total Protein Albumin Prealbumin Triglycerides Cholesterol LDL Cholesterol Direct HDL Cholesterol Urine pH Urine WBC (Auto) Urine Creatinine Urine Total Protein Fluid Total Protein Vancomycin Trough Rheumatoid Factor Complement C4 Miscellaneous Test Crossmatch 11/20/16 11/20/16 11/20/16 05:00 05:00 05:51 WBC 13.1 H RBC 2.74 L Hgb 7.7 L Hct 23.6 L MCV MCH MCHC RDW 16.9 H Plt Count Lymph % (Auto) [place] % (Auto) 10.8 H Lymph # [place] # 1.4 H Baso # Seg Neutrophils % Seg Neuts % (Manual) Lymphocytes % (Manual) Monocytes % (Manual) Eosinophils % (Manual) Basophils % (Manual) Nucleated RBC % Seg Neutrophils # 7.9 H Seg Neutrophils # Man Lymphocytes # (Manual) Monocytes # (Manual) Eosinophils # (Manual) Basophils # (Manual) PT INR Fibrinogen dRVVT Confirm Interp Factor V Activity POC ABG pH POC ABG pCO2 POC ABG pO2 ABG pO2 ABG HCO3 ABG Base Excess ABG Hemoglobin Oxyhemoglobin Sodium Potassium Chloride Carbon Dioxide BUN 31 H Creatinine 1.8 H Glucose 129 H POC Glucose 133 H Lactic Acid Calcium Phosphorus Magnesium Direct Bilirubin AST ALT Alkaline Phosphatase Lactate Dehydrogenase Troponin T C-Reactive Protein Total Protein Albumin Prealbumin Triglycerides Cholesterol LDL Cholesterol Direct HDL Cholesterol Urine pH Urine WBC (Auto) Urine Creatinine Urine Total Protein Fluid Total Protein Vancomycin Trough Rheumatoid Factor Complement C4 Miscellaneous Test Crossmatch 11/20/16 11/20/16 11/21/16 12:40 18:10 01:20 WBC RBC Hgb Hct MCV MCH MCHC RDW Plt Count Lymph % (Auto) [place] % (Auto) Lymph # [place] # Baso # Seg Neutrophils % Seg Neuts % (Manual) Lymphocytes % (Manual) Monocytes % (Manual) Eosinophils % (Manual) Basophils % (Manual) Nucleated RBC % Seg Neutrophils # Seg Neutrophils # Man Lymphocytes # (Manual) Monocytes # (Manual) Eosinophils # (Manual) Basophils # (Manual) PT INR Fibrinogen dRVVT Confirm Interp Factor V Activity POC ABG pH POC ABG pCO2 POC ABG pO2 ABG pO2 ABG HCO3 ABG Base Excess ABG Hemoglobin Oxyhemoglobin Sodium Potassium Chloride Carbon Dioxide BUN Creatinine Glucose POC Glucose 134 H 138 H 136 H Lactic Acid Calcium Phosphorus Magnesium Direct Bilirubin AST ALT Alkaline Phosphatase Lactate Dehydrogenase Troponin T C-Reactive Protein Total Protein Albumin Prealbumin Triglycerides Cholesterol LDL Cholesterol Direct HDL Cholesterol Urine pH Urine WBC (Auto) Urine Creatinine Urine Total Protein Fluid Total Protein Vancomycin Trough Rheumatoid Factor Complement C4 Miscellaneous Test Crossmatch 11/21/16 11/21/16 11/21/16 07:04 07:45 07:45 WBC 22.0 H RBC 2.91 L Hgb 8.2 L Hct 25.4 L MCV MCH MCHC RDW 17.1 H Plt Count Lymph % (Auto) [place] % (Auto) Lymph # [place] # Baso # Seg Neutrophils % Seg Neuts % (Manual) Lymphocytes % (Manual) 8.0 L Monocytes % (Manual) Eosinophils % (Manual) Basophils % (Manual) Nucleated RBC % Seg Neutrophils # Seg Neutrophils # Man 14.7 H Lymphocytes # (Manual) Monocytes # (Manual) 1.1 H Eosinophils # (Manual) Basophils # (Manual) PT INR Fibrinogen dRVVT Confirm Interp Factor V Activity POC ABG pH POC ABG pCO2 POC ABG pO2 ABG pO2 ABG HCO3 ABG Base Excess ABG Hemoglobin Oxyhemoglobin Sodium Potassium Chloride Carbon Dioxide BUN 42 H Creatinine 2.0 H Glucose POC Glucose 108 H Lactic Acid Calcium Phosphorus Magnesium Direct Bilirubin AST ALT Alkaline Phosphatase Lactate Dehydrogenase Troponin T C-Reactive Protein Total Protein Albumin Prealbumin Triglycerides Cholesterol LDL Cholesterol Direct HDL Cholesterol Urine pH Urine WBC (Auto) Urine Creatinine Urine Total Protein Fluid Total Protein Vancomycin Trough Rheumatoid Factor Complement C4 Miscellaneous Test Crossmatch 11/21/16 11/21/16 11/21/16 08:38 10:09 11:20 WBC RBC Hgb Hct MCV MCH MCHC RDW Plt Count Lymph % (Auto) [place] % (Auto) Lymph # [place] # Baso # Seg Neutrophils % Seg Neuts % (Manual) Lymphocytes % (Manual) Monocytes % (Manual) Eosinophils % (Manual) Basophils % (Manual) Nucleated RBC % Seg Neutrophils # Seg Neutrophils # Man Lymphocytes # (Manual) Monocytes # (Manual) Eosinophils # (Manual) Basophils # (Manual) PT INR Fibrinogen dRVVT Confirm Interp Factor V Activity POC ABG pH 7.346 L POC ABG pCO2 34.4 L POC ABG pO2 314 H ABG pO2 ABG HCO3 ABG Base Excess ABG Hemoglobin Oxyhemoglobin Sodium Potassium Chloride Carbon Dioxide BUN Creatinine Glucose POC Glucose 195 H 153 H Lactic Acid Calcium Phosphorus Magnesium Direct Bilirubin AST ALT Alkaline Phosphatase Lactate Dehydrogenase Troponin T C-Reactive Protein Total Protein Albumin Prealbumin Triglycerides Cholesterol LDL Cholesterol Direct HDL Cholesterol Urine pH Urine WBC (Auto) Urine Creatinine Urine Total Protein Fluid Total Protein Vancomycin Trough Rheumatoid Factor Complement C4 Miscellaneous Test Crossmatch 11/21/16 11/22/16 11/22/16 23:37 04:48 05:00 WBC 29.7 H RBC 2.73 L Hgb 7.5 L Hct 24.2 L MCV MCH 27 L MCHC RDW 17.4 H Plt Count Lymph % (Auto) [place] % (Auto) Lymph # [place] # Baso # Seg Neutrophils % Seg Neuts % (Manual) Lymphocytes % (Manual) 7.0 L Monocytes % (Manual) Eosinophils % (Manual) Basophils % (Manual) Nucleated RBC % Seg Neutrophils # Seg Neutrophils # Man 15.4 H Lymphocytes # (Manual) Monocytes # (Manual) Eosinophils # (Manual) Basophils # (Manual) PT INR Fibrinogen dRVVT Confirm Interp Factor V Activity POC ABG pH POC ABG pCO2 24.6 L POC ABG pO2 189 H ABG pO2 ABG HCO3 ABG Base Excess ABG Hemoglobin Oxyhemoglobin Sodium Potassium Chloride Carbon Dioxide BUN Creatinine Glucose POC Glucose 65 L Lactic Acid Calcium Phosphorus Magnesium Direct Bilirubin AST ALT Alkaline Phosphatase Lactate Dehydrogenase Troponin T C-Reactive Protein Total Protein Albumin Prealbumin Triglycerides Cholesterol LDL Cholesterol Direct HDL Cholesterol Urine pH Urine WBC (Auto) Urine Creatinine Urine Total Protein Fluid Total Protein Vancomycin Trough Rheumatoid Factor Complement C4 Miscellaneous Test Crossmatch 11/22/16 11/23/16 11/23/16 05:00 03:44 04:06 WBC RBC 2.52 L Hgb 7.2 L Hct 21.5 L MCV MCH MCHC RDW 17.1 H Plt Count Lymph % (Auto) [place] % (Auto) 12.4 H Lymph # [place] # 1.4 H Baso # Seg Neutrophils % Seg Neuts % (Manual) Lymphocytes % (Manual) Monocytes % (Manual) Eosinophils % (Manual) Basophils % (Manual) Nucleated RBC % Seg Neutrophils # Seg Neutrophils # Man Lymphocytes # (Manual) Monocytes # (Manual) Eosinophils # (Manual) Basophils # (Manual) PT INR Fibrinogen dRVVT Confirm Interp Factor V Activity POC ABG pH 7.493 H POC ABG pCO2 29.5 L POC ABG pO2 49 L ABG pO2 ABG HCO3 ABG Base Excess ABG Hemoglobin Oxyhemoglobin Sodium 134 L Potassium Chloride 95.9 L Carbon Dioxide 14 L D BUN 51 H Creatinine 2.6 H Glucose POC Glucose Lactic Acid Calcium Phosphorus Magnesium Direct Bilirubin AST ALT Alkaline Phosphatase Lactate Dehydrogenase Troponin T C-Reactive Protein Total Protein Albumin Prealbumin Triglycerides Cholesterol LDL Cholesterol Direct HDL Cholesterol Urine pH Urine WBC (Auto) Urine Creatinine Urine Total Protein Fluid Total Protein Vancomycin Trough Rheumatoid Factor Complement C4 Miscellaneous Test Crossmatch 11/23/16 11/23/16 11/24/16 04:06 11:29 06:39 WBC RBC Hgb Hct MCV MCH MCHC RDW Plt Count Lymph % (Auto) [place] % (Auto) Lymph # [place] # Baso # Seg Neutrophils % Seg Neuts % (Manual) Lymphocytes % (Manual) Monocytes % (Manual) Eosinophils % (Manual) Basophils % (Manual) Nucleated RBC % Seg Neutrophils # Seg Neutrophils # Man Lymphocytes # (Manual) Monocytes # (Manual) Eosinophils # (Manual) Basophils # (Manual) PT INR Fibrinogen dRVVT Confirm Interp Factor V Activity POC ABG pH POC ABG pCO2 POC ABG pO2 ABG pO2 ABG HCO3 ABG Base Excess ABG Hemoglobin Oxyhemoglobin Sodium 136 L Potassium Chloride 95.2 L Carbon Dioxide BUN 60 H Creatinine 2.9 H Glucose POC Glucose 69 L 305 H Lactic Acid Calcium Phosphorus Magnesium 1.60 L Direct Bilirubin AST ALT Alkaline Phosphatase Lactate Dehydrogenase Troponin T C-Reactive Protein Total Protein Albumin Prealbumin Triglycerides Cholesterol LDL Cholesterol Direct HDL Cholesterol Urine pH Urine WBC (Auto) Urine Creatinine Urine Total Protein Fluid Total Protein Vancomycin Trough Rheumatoid Factor Complement C4 Miscellaneous Test Crossmatch 11/24/16 11/24/16 11/24/16 06:43 08:08 08:08 WBC 11.2 H RBC 2.47 L Hgb 6.8 L Hct 20.6 L MCV MCH MCHC RDW 17.0 H Plt Count Lymph % (Auto) [place] % (Auto) 10.3 H Lymph # [place] # 1.2 H Baso # Seg Neutrophils % Seg Neuts % (Manual) Lymphocytes % (Manual) Monocytes % (Manual) Eosinophils % (Manual) Basophils % (Manual) Nucleated RBC % Seg Neutrophils # Seg Neutrophils # Man Lymphocytes # (Manual) Monocytes # (Manual) Eosinophils # (Manual) Basophils # (Manual) PT INR Fibrinogen dRVVT Confirm Interp Factor V Activity POC ABG pH POC ABG pCO2 POC ABG pO2 ABG pO2 ABG HCO3 ABG Base Excess ABG Hemoglobin Oxyhemoglobin Sodium 135 L Potassium Chloride 96.3 L Carbon Dioxide BUN 61 H Creatinine 3.1 H Glucose POC Glucose 62 L Lactic Acid Calcium 8.2 L Phosphorus Magnesium Direct Bilirubin AST ALT Alkaline Phosphatase Lactate Dehydrogenase Troponin T C-Reactive Protein Total Protein Albumin Prealbumin Triglycerides Cholesterol LDL Cholesterol Direct HDL Cholesterol Urine pH Urine WBC (Auto) Urine Creatinine Urine Total Protein Fluid Total Protein Vancomycin Trough Rheumatoid Factor Complement C4 Miscellaneous Test Crossmatch 11/24/16 11/24/16 11/24/16 08:34 11:20 12:41 WBC RBC Hgb Hct MCV MCH MCHC RDW Plt Count Lymph % (Auto) [place] % (Auto) Lymph # [place] # Baso # Seg Neutrophils % Seg Neuts % (Manual) Lymphocytes % (Manual) Monocytes % (Manual) Eosinophils % (Manual) Basophils % (Manual) Nucleated RBC % Seg Neutrophils # Seg Neutrophils # Man Lymphocytes # (Manual) Monocytes # (Manual) Eosinophils # (Manual) Basophils # (Manual) PT INR Fibrinogen dRVVT Confirm Interp Factor V Activity POC ABG pH POC ABG pCO2 POC ABG pO2 ABG pO2 ABG HCO3 ABG Base Excess ABG Hemoglobin Oxyhemoglobin Sodium Potassium Chloride Carbon Dioxide BUN Creatinine Glucose POC Glucose 108 H Lactic Acid Calcium Phosphorus Magnesium 1.60 L Direct Bilirubin AST ALT Alkaline Phosphatase Lactate Dehydrogenase Troponin T C-Reactive Protein Total Protein Albumin Prealbumin Triglycerides Cholesterol LDL Cholesterol Direct HDL Cholesterol Urine pH Urine WBC (Auto) Urine Creatinine Urine Total Protein Fluid Total Protein Vancomycin Trough Rheumatoid Factor Complement C4 Miscellaneous Test Crossmatch See Detail 11/25/16 11/25/16 11/25/16 00:03 04:42 04:42 WBC RBC 3.03 L Hgb 8.6 L Hct 25.3 L MCV MCH MCHC RDW 16.2 H Plt Count Lymph % (Auto) [place] % (Auto) 8.1 H Lymph # [place] # Baso # Seg Neutrophils % 71.3 H Seg Neuts % (Manual) Lymphocytes % (Manual) Monocytes % (Manual) Eosinophils % (Manual) Basophils % (Manual) Nucleated RBC % Seg Neutrophils # Seg Neutrophils # Man Lymphocytes # (Manual) Monocytes # (Manual) Eosinophils # (Manual) Basophils # (Manual) PT INR Fibrinogen dRVVT Confirm Interp Factor V Activity POC ABG pH POC ABG pCO2 POC ABG pO2 ABG pO2 ABG HCO3 ABG Base Excess ABG Hemoglobin Oxyhemoglobin Sodium Potassium Chloride Carbon Dioxide BUN 61 H Creatinine 3.0 H Glucose 102 H POC Glucose 113 H Lactic Acid Calcium 8.2 L Phosphorus Magnesium Direct Bilirubin AST ALT Alkaline Phosphatase 142 H Lactate Dehydrogenase Troponin T C-Reactive Protein Total Protein 5.7 L Albumin 1.5 L Prealbumin Triglycerides Cholesterol LDL Cholesterol Direct HDL Cholesterol Urine pH Urine WBC (Auto) Urine Creatinine Urine Total Protein Fluid Total Protein Vancomycin Trough Rheumatoid Factor Complement C4 Miscellaneous Test Crossmatch 11/25/16 11/25/16 11/25/16 05:12 11:31 14:12 WBC RBC Hgb Hct MCV MCH MCHC RDW Plt Count Lymph % (Auto) [place] % (Auto) Lymph # [place] # Baso # Seg Neutrophils % Seg Neuts % (Manual) Lymphocytes % (Manual) Monocytes % (Manual) Eosinophils % (Manual) Basophils % (Manual) Nucleated RBC % Seg Neutrophils # Seg Neutrophils # Man Lymphocytes # (Manual) Monocytes # (Manual) Eosinophils # (Manual) Basophils # (Manual) PT INR Fibrinogen dRVVT Confirm Interp Factor V Activity POC ABG pH 7.487 H POC ABG pCO2 POC ABG pO2 153 H ABG pO2 ABG HCO3 ABG Base Excess ABG Hemoglobin Oxyhemoglobin Sodium Potassium Chloride Carbon Dioxide BUN Creatinine Glucose POC Glucose 131 H 140 H Lactic Acid Calcium Phosphorus Magnesium Direct Bilirubin AST ALT Alkaline Phosphatase Lactate Dehydrogenase Troponin T C-Reactive Protein Total Protein Albumin Prealbumin Triglycerides Cholesterol LDL Cholesterol Direct HDL Cholesterol Urine pH Urine WBC (Auto) Urine Creatinine Urine Total Protein Fluid Total Protein Vancomycin Trough Rheumatoid Factor Complement C4 Miscellaneous Test Crossmatch 11/25/16 11/26/16 11/26/16 17:23 00:09 05:13 WBC RBC 2.94 L Hgb 8.4 L Hct 24.6 L MCV MCH MCHC RDW 16.4 H Plt Count Lymph % (Auto) [place] % (Auto) 12.3 H Lymph # [place] # 1.1 H Baso # Seg Neutrophils % Seg Neuts % (Manual) Lymphocytes % (Manual) Monocytes % (Manual) Eosinophils % (Manual) Basophils % (Manual) Nucleated RBC % Seg Neutrophils # Seg Neutrophils # Man Lymphocytes # (Manual) Monocytes # (Manual) Eosinophils # (Manual) Basophils # (Manual) PT INR Fibrinogen dRVVT Confirm Interp Factor V Activity POC ABG pH POC ABG pCO2 POC ABG pO2 ABG pO2 ABG HCO3 ABG Base Excess ABG Hemoglobin Oxyhemoglobin Sodium Potassium Chloride Carbon Dioxide BUN Creatinine Glucose POC Glucose 146 H 112 H Lactic Acid Calcium Phosphorus Magnesium Direct Bilirubin AST ALT Alkaline Phosphatase Lactate Dehydrogenase Troponin T C-Reactive Protein Total Protein Albumin Prealbumin Triglycerides Cholesterol LDL Cholesterol Direct HDL Cholesterol Urine pH Urine WBC (Auto) Urine Creatinine Urine Total Protein Fluid Total Protein Vancomycin Trough Rheumatoid Factor Complement C4 Miscellaneous Test Crossmatch 11/26/16 11/26/16 11/26/16 05:13 05:28 11:53 WBC RBC Hgb Hct MCV MCH MCHC RDW Plt Count Lymph % (Auto) [place] % (Auto) Lymph # [place] # Baso # Seg Neutrophils % Seg Neuts % (Manual) Lymphocytes % (Manual) Monocytes % (Manual) Eosinophils % (Manual) Basophils % (Manual) Nucleated RBC % Seg Neutrophils # Seg Neutrophils # Man Lymphocytes # (Manual) Monocytes # (Manual) Eosinophils # (Manual) Basophils # (Manual) PT INR Fibrinogen dRVVT Confirm Interp Factor V Activity POC ABG pH POC ABG pCO2 POC ABG pO2 ABG pO2 ABG HCO3 ABG Base Excess ABG Hemoglobin Oxyhemoglobin Sodium Potassium Chloride 97.8 L Carbon Dioxide BUN 37 H Creatinine 2.0 H Glucose 109 H POC Glucose 117 H 111 H Lactic Acid Calcium 7.9 L Phosphorus 1.80 L D Magnesium Direct Bilirubin AST ALT Alkaline Phosphatase Lactate Dehydrogenase Troponin T C-Reactive Protein Total Protein Albumin Prealbumin Triglycerides Cholesterol LDL Cholesterol Direct HDL Cholesterol Urine pH Urine WBC (Auto) Urine Creatinine Urine Total Protein Fluid Total Protein Vancomycin Trough Rheumatoid Factor Complement C4 Miscellaneous Test Crossmatch 11/26/16 11/27/16 11/27/16 17:14 04:50 06:02 WBC RBC Hgb Hct MCV MCH MCHC RDW Plt Count Lymph % (Auto) [place] % (Auto) Lymph # [place] # Baso # Seg Neutrophils % Seg Neuts % (Manual) Lymphocytes % (Manual) Monocytes % (Manual) Eosinophils % (Manual) Basophils % (Manual) Nucleated RBC % Seg Neutrophils # Seg Neutrophils # Man Lymphocytes # (Manual) Monocytes # (Manual) Eosinophils # (Manual) Basophils # (Manual) PT INR Fibrinogen dRVVT Confirm Interp Factor V Activity POC ABG pH POC ABG pCO2 POC ABG pO2 ABG pO2 75.2 L ABG HCO3 26.4 H ABG Base Excess ABG Hemoglobin 7.6 L Oxyhemoglobin 94.8 L Sodium Potassium Chloride Carbon Dioxide BUN 49 H Creatinine 2.3 H Glucose POC Glucose 115 H Lactic Acid Calcium Phosphorus 1.50 L Magnesium Direct Bilirubin AST ALT Alkaline Phosphatase Lactate Dehydrogenase Troponin T C-Reactive Protein Total Protein Albumin Prealbumin Triglycerides Cholesterol LDL Cholesterol Direct HDL Cholesterol Urine pH Urine WBC (Auto) Urine Creatinine Urine Total Protein Fluid Total Protein Vancomycin Trough Rheumatoid Factor Complement C4 Miscellaneous Test Crossmatch 11/27/16 11/27/16 11/27/16 06:02 11:25 17:25 WBC 11.6 H RBC 2.75 L Hgb 7.6 L Hct 23.4 L MCV MCH MCHC RDW 16.5 H Plt Count Lymph % (Auto) [place] % (Auto) Lymph # [place] # Baso # Seg Neutrophils % Seg Neuts % (Manual) Lymphocytes % (Manual) Monocytes % (Manual) Eosinophils % (Manual) Basophils % (Manual) Nucleated RBC % Seg Neutrophils # Seg Neutrophils # Man Lymphocytes # (Manual) Monocytes # (Manual) Eosinophils # (Manual) Basophils # (Manual) PT INR Fibrinogen dRVVT Confirm Interp Factor V Activity POC ABG pH POC ABG pCO2 POC ABG pO2 ABG pO2 ABG HCO3 ABG Base Excess ABG Hemoglobin Oxyhemoglobin Sodium Potassium Chloride Carbon Dioxide BUN Creatinine Glucose POC Glucose 114 H 126 H Lactic Acid Calcium Phosphorus Magnesium Direct Bilirubin AST ALT Alkaline Phosphatase Lactate Dehydrogenase Troponin T C-Reactive Protein Total Protein Albumin Prealbumin Triglycerides Cholesterol LDL Cholesterol Direct HDL Cholesterol Urine pH Urine WBC (Auto) Urine Creatinine Urine Total Protein Fluid Total Protein Vancomycin Trough Rheumatoid Factor Complement C4 Miscellaneous Test Crossmatch 11/28/16 11/28/16 11/28/16 04:45 05:33 05:44 WBC RBC Hgb Hct MCV MCH MCHC RDW Plt Count Lymph % (Auto) [place] % (Auto) Lymph # [place] # Baso # Seg Neutrophils % Seg Neuts % (Manual) Lymphocytes % (Manual) Monocytes % (Manual) Eosinophils % (Manual) Basophils % (Manual) Nucleated RBC % Seg Neutrophils # Seg Neutrophils # Man Lymphocytes # (Manual) Monocytes # (Manual) Eosinophils # (Manual) Basophils # (Manual) PT INR Fibrinogen dRVVT Confirm Interp Factor V Activity POC ABG pH POC ABG pCO2 POC ABG pO2 ABG pO2 99.3 H ABG HCO3 ABG Base Excess ABG Hemoglobin 8.3 L Oxyhemoglobin Sodium Potassium Chloride Carbon Dioxide BUN 63 H Creatinine 2.4 H Glucose 102 H POC Glucose 108 H Lactic Acid Calcium Phosphorus 1.80 L Magnesium Direct Bilirubin AST ALT Alkaline Phosphatase Lactate Dehydrogenase Troponin T C-Reactive Protein Total Protein Albumin Prealbumin Triglycerides Cholesterol LDL Cholesterol Direct HDL Cholesterol Urine pH Urine WBC (Auto) Urine Creatinine Urine Total Protein Fluid Total Protein Vancomycin Trough Rheumatoid Factor Complement C4 Miscellaneous Test Crossmatch 11/28/16 11/28/16 11/28/16 12:31 16:09 23:46 WBC RBC Hgb Hct MCV MCH MCHC RDW Plt Count Lymph % (Auto) [place] % (Auto) Lymph # [place] # Baso # Seg Neutrophils % Seg Neuts % (Manual) Lymphocytes % (Manual) Monocytes % (Manual) Eosinophils % (Manual) Basophils % (Manual) Nucleated RBC % Seg Neutrophils # Seg Neutrophils # Man Lymphocytes # (Manual) Monocytes # (Manual) Eosinophils # (Manual) Basophils # (Manual) PT INR Fibrinogen dRVVT Confirm Interp Factor V Activity POC ABG pH POC ABG pCO2 POC ABG pO2 ABG pO2 ABG HCO3 ABG Base Excess ABG Hemoglobin Oxyhemoglobin Sodium Potassium Chloride Carbon Dioxide BUN Creatinine Glucose POC Glucose 126 H 111 H 119 H Lactic Acid Calcium Phosphorus Magnesium Direct Bilirubin AST ALT Alkaline Phosphatase Lactate Dehydrogenase Troponin T C-Reactive Protein Total Protein Albumin Prealbumin Triglycerides Cholesterol LDL Cholesterol Direct HDL Cholesterol Urine pH Urine WBC (Auto) Urine Creatinine Urine Total Protein Fluid Total Protein Vancomycin Trough Rheumatoid Factor Complement C4 Miscellaneous Test Crossmatch 11/29/16 11/29/16 11/29/16 03:33 04:52 05:10 WBC RBC Hgb Hct MCV MCH MCHC RDW Plt Count Lymph % (Auto) [place] % (Auto) Lymph # [place] # Baso # Seg Neutrophils % Seg Neuts % (Manual) Lymphocytes % (Manual) Monocytes % (Manual) Eosinophils % (Manual) Basophils % (Manual) Nucleated RBC % Seg Neutrophils # Seg Neutrophils # Man Lymphocytes # (Manual) Monocytes # (Manual) Eosinophils # (Manual) Basophils # (Manual) PT INR Fibrinogen dRVVT Confirm Interp Factor V Activity POC ABG pH POC ABG pCO2 POC ABG pO2 ABG pO2 ABG HCO3 ABG Base Excess ABG Hemoglobin 7.0 L Oxyhemoglobin 94.9 L Sodium Potassium Chloride Carbon Dioxide BUN 73 H Creatinine 2.7 H Glucose POC Glucose 108 H Lactic Acid Calcium Phosphorus Magnesium Direct Bilirubin AST ALT Alkaline Phosphatase Lactate Dehydrogenase Troponin T C-Reactive Protein Total Protein Albumin Prealbumin Triglycerides Cholesterol LDL Cholesterol Direct HDL Cholesterol Urine pH Urine WBC (Auto) Urine Creatinine Urine Total Protein Fluid Total Protein Vancomycin Trough Rheumatoid Factor Complement C4 Miscellaneous Test Crossmatch 11/29/16 11/29/16 11/29/16 12:16 18:05 23:46 WBC RBC Hgb Hct MCV MCH MCHC RDW Plt Count Lymph % (Auto) [place] % (Auto) Lymph # [place] # Baso # Seg Neutrophils % Seg Neuts % (Manual) Lymphocytes % (Manual) Monocytes % (Manual) Eosinophils % (Manual) Basophils % (Manual) Nucleated RBC % Seg Neutrophils # Seg Neutrophils # Man Lymphocytes # (Manual) Monocytes # (Manual) Eosinophils # (Manual) Basophils # (Manual) PT INR Fibrinogen dRVVT Confirm Interp Factor V Activity POC ABG pH POC ABG pCO2 POC ABG pO2 ABG pO2 ABG HCO3 ABG Base Excess ABG Hemoglobin Oxyhemoglobin Sodium Potassium Chloride Carbon Dioxide BUN Creatinine Glucose POC Glucose 133 H 146 H 141 H Lactic Acid Calcium Phosphorus Magnesium Direct Bilirubin AST ALT Alkaline Phosphatase Lactate Dehydrogenase Troponin T C-Reactive Protein Total Protein Albumin Prealbumin Triglycerides Cholesterol LDL Cholesterol Direct HDL Cholesterol Urine pH Urine WBC (Auto) Urine Creatinine Urine Total Protein Fluid Total Protein Vancomycin Trough Rheumatoid Factor Complement C4 Miscellaneous Test Crossmatch 11/30/16 11/30/16 11/30/16 04:17 04:17 04:32 WBC 12.0 H RBC 2.80 L Hgb 7.8 L Hct 23.6 L MCV MCH MCHC RDW 16.6 H Plt Count Lymph % (Auto) [place] % (Auto) 11.3 H Lymph # [place] # 1.4 H Baso # Seg Neutrophils % Seg Neuts % (Manual) Lymphocytes % (Manual) Monocytes % (Manual) Eosinophils % (Manual) Basophils % (Manual) Nucleated RBC % Seg Neutrophils # 8.2 H Seg Neutrophils # Man Lymphocytes # (Manual) Monocytes # (Manual) Eosinophils # (Manual) Basophils # (Manual) PT INR Fibrinogen dRVVT Confirm Interp Factor V Activity POC ABG pH POC ABG pCO2 POC ABG pO2 ABG pO2 ABG HCO3 ABG Base Excess ABG Hemoglobin Oxyhemoglobin Sodium 169 H* D Potassium 5.1 H Chloride 121.5 H Carbon Dioxide BUN 34 H Creatinine 1.3 H D Glucose 133 H POC Glucose 131 H Lactic Acid Calcium 10.3 H Phosphorus Magnesium Direct Bilirubin AST ALT Alkaline Phosphatase Lactate Dehydrogenase Troponin T C-Reactive Protein Total Protein Albumin Prealbumin Triglycerides Cholesterol LDL Cholesterol Direct HDL Cholesterol Urine pH Urine WBC (Auto) Urine Creatinine Urine Total Protein Fluid Total Protein Vancomycin Trough Rheumatoid Factor Complement C4 Miscellaneous Test Crossmatch 11/30/16 11/30/16 11/30/16 05:45 11:10 17:26 WBC RBC Hgb Hct MCV MCH MCHC RDW Plt Count Lymph % (Auto) [place] % (Auto) Lymph # [place] # Baso # Seg Neutrophils % Seg Neuts % (Manual) Lymphocytes % (Manual) Monocytes % (Manual) Eosinophils % (Manual) Basophils % (Manual) Nucleated RBC % Seg Neutrophils # Seg Neutrophils # Man Lymphocytes # (Manual) Monocytes # (Manual) Eosinophils # (Manual) Basophils # (Manual) PT INR Fibrinogen dRVVT Confirm Interp Factor V Activity POC ABG pH POC ABG pCO2 POC ABG pO2 ABG pO2 ABG HCO3 ABG Base Excess ABG Hemoglobin Oxyhemoglobin Sodium Potassium Chloride Carbon Dioxide BUN 45 H Creatinine 1.6 H Glucose 131 H POC Glucose 146 H 134 H Lactic Acid Calcium Phosphorus Magnesium Direct Bilirubin AST ALT Alkaline Phosphatase Lactate Dehydrogenase Troponin T C-Reactive Protein Total Protein Albumin Prealbumin Triglycerides Cholesterol LDL Cholesterol Direct HDL Cholesterol Urine pH Urine WBC (Auto) Urine Creatinine Urine Total Protein Fluid Total Protein Vancomycin Trough Rheumatoid Factor Complement C4 Miscellaneous Test Crossmatch 11/30/16 12/01/16 12/01/16 23:35 00:06 03:35 WBC RBC Hgb Hct MCV MCH MCHC RDW Plt Count Lymph % (Auto) [place] % (Auto) Lymph # [place] # Baso # Seg Neutrophils % Seg Neuts % (Manual) Lymphocytes % (Manual) Monocytes % (Manual) Eosinophils % (Manual) Basophils % (Manual) Nucleated RBC % Seg Neutrophils # Seg Neutrophils # Man Lymphocytes # (Manual) Monocytes # (Manual) Eosinophils # (Manual) Basophils # (Manual) PT INR Fibrinogen dRVVT Confirm Interp Factor V Activity POC ABG pH POC ABG pCO2 POC ABG pO2 ABG pO2 ABG HCO3 ABG Base Excess ABG Hemoglobin 6.9 L Oxyhemoglobin Sodium Potassium Chloride Carbon Dioxide BUN 58 H Creatinine 1.8 H Glucose 146 H POC Glucose 151 H Lactic Acid Calcium Phosphorus Magnesium Direct Bilirubin AST ALT Alkaline Phosphatase Lactate Dehydrogenase Troponin T C-Reactive Protein Total Protein Albumin Prealbumin Triglycerides Cholesterol LDL Cholesterol Direct HDL Cholesterol Urine pH Urine WBC (Auto) Urine Creatinine Urine Total Protein Fluid Total Protein Vancomycin Trough Rheumatoid Factor Complement C4 Miscellaneous Test Crossmatch 12/01/16 12/01/16 12/01/16 03:35 05:47 11:52 WBC 12.3 H RBC 2.82 L Hgb 7.8 L Hct 23.7 L MCV MCH MCHC RDW 16.7 H Plt Count Lymph % (Auto) [place] % (Auto) 9.8 H Lymph # [place] # 1.2 H Baso # Seg Neutrophils % Seg Neuts % (Manual) Lymphocytes % (Manual) Monocytes % (Manual) Eosinophils % (Manual) Basophils % (Manual) Nucleated RBC % Seg Neutrophils # 8.4 H Seg Neutrophils # Man Lymphocytes # (Manual) Monocytes # (Manual) Eosinophils # (Manual) Basophils # (Manual) PT INR Fibrinogen dRVVT Confirm Interp Factor V Activity POC ABG pH POC ABG pCO2 POC ABG pO2 ABG pO2 ABG HCO3 ABG Base Excess ABG Hemoglobin Oxyhemoglobin Sodium Potassium Chloride Carbon Dioxide BUN Creatinine Glucose POC Glucose 152 H 152 H Lactic Acid Calcium Phosphorus Magnesium Direct Bilirubin AST ALT Alkaline Phosphatase Lactate Dehydrogenase Troponin T C-Reactive Protein Total Protein Albumin Prealbumin Triglycerides Cholesterol LDL Cholesterol Direct HDL Cholesterol Urine pH Urine WBC (Auto) Urine Creatinine Urine Total Protein Fluid Total Protein Vancomycin Trough Rheumatoid Factor Complement C4 Miscellaneous Test Crossmatch 12/01/16 12/01/16 12/02/16 17:40 23:41 05:00 WBC RBC Hgb Hct MCV MCH MCHC RDW Plt Count Lymph % (Auto) [place] % (Auto) Lymph # [place] # Baso # Seg Neutrophils % Seg Neuts % (Manual) Lymphocytes % (Manual) Monocytes % (Manual) Eosinophils % (Manual) Basophils % (Manual) Nucleated RBC % Seg Neutrophils # Seg Neutrophils # Man Lymphocytes # (Manual) Monocytes # (Manual) Eosinophils # (Manual) Basophils # (Manual) PT INR Fibrinogen dRVVT Confirm Interp Factor V Activity POC ABG pH POC ABG pCO2 POC ABG pO2 ABG pO2 ABG HCO3 ABG Base Excess ABG Hemoglobin Oxyhemoglobin Sodium Potassium Chloride Carbon Dioxide BUN 45 H Creatinine Glucose 115 H POC Glucose 140 H 144 H Lactic Acid Calcium Phosphorus Magnesium Direct Bilirubin AST ALT Alkaline Phosphatase Lactate Dehydrogenase Troponin T C-Reactive Protein Total Protein Albumin Prealbumin Triglycerides Cholesterol LDL Cholesterol Direct HDL Cholesterol Urine pH Urine WBC (Auto) Urine Creatinine Urine Total Protein Fluid Total Protein Vancomycin Trough Rheumatoid Factor Complement C4 Miscellaneous Test Crossmatch 12/02/16 12/02/16 12/02/16 05:31 11:20 17:38 WBC RBC Hgb Hct MCV MCH MCHC RDW Plt Count Lymph % (Auto) [place] % (Auto) Lymph # [place] # Baso # Seg Neutrophils % Seg Neuts % (Manual) Lymphocytes % (Manual) Monocytes % (Manual) Eosinophils % (Manual) Basophils % (Manual) Nucleated RBC % Seg Neutrophils # Seg Neutrophils # Man Lymphocytes # (Manual) Monocytes # (Manual) Eosinophils # (Manual) Basophils # (Manual) PT INR Fibrinogen dRVVT Confirm Interp Factor V Activity POC ABG pH POC ABG pCO2 POC ABG pO2 ABG pO2 ABG HCO3 ABG Base Excess ABG Hemoglobin Oxyhemoglobin Sodium Potassium Chloride Carbon Dioxide BUN Creatinine Glucose POC Glucose 136 H 177 H 139 H Lactic Acid Calcium Phosphorus Magnesium Direct Bilirubin AST ALT Alkaline Phosphatase Lactate Dehydrogenase Troponin T C-Reactive Protein Total Protein Albumin Prealbumin Triglycerides Cholesterol LDL Cholesterol Direct HDL Cholesterol Urine pH Urine WBC (Auto) Urine Creatinine Urine Total Protein Fluid Total Protein Vancomycin Trough Rheumatoid Factor Complement C4 Miscellaneous Test Crossmatch 12/02/16 12/03/16 12/03/16 23:43 04:00 04:00 WBC 20.4 H RBC 2.74 L Hgb 7.4 L Hct 23.6 L MCV MCH 27 L MCHC RDW 17.1 H Plt Count Lymph % (Auto) [place] % (Auto) Lymph # [place] # Baso # Seg Neutrophils % Seg Neuts % (Manual) 31.0 L Lymphocytes % (Manual) Monocytes % (Manual) Eosinophils % (Manual) Basophils % (Manual) Nucleated RBC % Seg Neutrophils # Seg Neutrophils # Man Lymphocytes # (Manual) Monocytes # (Manual) Eosinophils # (Manual) Basophils # (Manual) PT INR Fibrinogen dRVVT Confirm Interp Factor V Activity POC ABG pH POC ABG pCO2 POC ABG pO2 ABG pO2 ABG HCO3 ABG Base Excess ABG Hemoglobin Oxyhemoglobin Sodium Potassium Chloride Carbon Dioxide BUN 61 H Creatinine 1.6 H Glucose 119 H POC Glucose 158 H Lactic Acid Calcium Phosphorus Magnesium Direct Bilirubin AST ALT Alkaline Phosphatase Lactate Dehydrogenase Troponin T C-Reactive Protein Total Protein Albumin Prealbumin Triglycerides Cholesterol LDL Cholesterol Direct HDL Cholesterol Urine pH Urine WBC (Auto) Urine Creatinine Urine Total Protein Fluid Total Protein Vancomycin Trough Rheumatoid Factor Complement C4 Miscellaneous Test Crossmatch 12/03/16 12/03/16 12/03/16 05:02 12:11 18:16 WBC RBC Hgb Hct MCV MCH MCHC RDW Plt Count Lymph % (Auto) [place] % (Auto) Lymph # [place] # Baso # Seg Neutrophils % Seg Neuts % (Manual) Lymphocytes % (Manual) Monocytes % (Manual) Eosinophils % (Manual) Basophils % (Manual) Nucleated RBC % Seg Neutrophils # Seg Neutrophils # Man Lymphocytes # (Manual) Monocytes # (Manual) Eosinophils # (Manual) Basophils # (Manual) PT INR Fibrinogen dRVVT Confirm Interp Factor V Activity POC ABG pH POC ABG pCO2 POC ABG pO2 ABG pO2 ABG HCO3 ABG Base Excess ABG Hemoglobin Oxyhemoglobin Sodium Potassium Chloride Carbon Dioxide BUN Creatinine Glucose POC Glucose 146 H 157 H 124 H Lactic Acid Calcium Phosphorus Magnesium Direct Bilirubin AST ALT Alkaline Phosphatase Lactate Dehydrogenase Troponin T C-Reactive Protein Total Protein Albumin Prealbumin Triglycerides Cholesterol LDL Cholesterol Direct HDL Cholesterol Urine pH Urine WBC (Auto) Urine Creatinine Urine Total Protein Fluid Total Protein Vancomycin Trough Rheumatoid Factor Complement C4 Miscellaneous Test Crossmatch 12/03/16 12/04/16 12/04/16 23:41 04:00 04:45 WBC RBC Hgb Hct MCV MCH MCHC RDW Plt Count Lymph % (Auto) [place] % (Auto) Lymph # [place] # Baso # Seg Neutrophils % Seg Neuts % (Manual) Lymphocytes % (Manual) Monocytes % (Manual) Eosinophils % (Manual) Basophils % (Manual) Nucleated RBC % Seg Neutrophils # Seg Neutrophils # Man Lymphocytes # (Manual) Monocytes # (Manual) Eosinophils # (Manual) Basophils # (Manual) PT INR Fibrinogen dRVVT Confirm Interp Factor V Activity POC ABG pH POC ABG pCO2 POC ABG pO2 ABG pO2 ABG HCO3 ABG Base Excess ABG Hemoglobin Oxyhemoglobin Sodium Potassium Chloride Carbon Dioxide BUN 76 H Creatinine 1.6 H Glucose POC Glucose 130 H 136 H Lactic Acid Calcium Phosphorus Magnesium Direct Bilirubin AST ALT Alkaline Phosphatase 155 H Lactate Dehydrogenase Troponin T C-Reactive Protein Total Protein 5.5 L Albumin 1.5 L Prealbumin Triglycerides Cholesterol LDL Cholesterol Direct HDL Cholesterol Urine pH Urine WBC (Auto) Urine Creatinine Urine Total Protein Fluid Total Protein Vancomycin Trough Rheumatoid Factor Complement C4 Miscellaneous Test Crossmatch 12/04/16 12/04/16 12/05/16 12:08 17:23 00:10 WBC RBC Hgb Hct MCV MCH MCHC RDW Plt Count Lymph % (Auto) [place] % (Auto) Lymph # [place] # Baso # Seg Neutrophils % Seg Neuts % (Manual) Lymphocytes % (Manual) Monocytes % (Manual) Eosinophils % (Manual) Basophils % (Manual) Nucleated RBC % Seg Neutrophils # Seg Neutrophils # Man Lymphocytes # (Manual) Monocytes # (Manual) Eosinophils # (Manual) Basophils # (Manual) PT INR Fibrinogen dRVVT Confirm Interp Factor V Activity POC ABG pH POC ABG pCO2 POC ABG pO2 ABG pO2 ABG HCO3 ABG Base Excess ABG Hemoglobin Oxyhemoglobin Sodium Potassium Chloride Carbon Dioxide BUN Creatinine Glucose POC Glucose 114 H 129 H 124 H Lactic Acid Calcium Phosphorus Magnesium Direct Bilirubin AST ALT Alkaline Phosphatase Lactate Dehydrogenase Troponin T C-Reactive Protein Total Protein Albumin Prealbumin Triglycerides Cholesterol LDL Cholesterol Direct HDL Cholesterol Urine pH Urine WBC (Auto) Urine Creatinine Urine Total Protein Fluid Total Protein Vancomycin Trough Rheumatoid Factor Complement C4 Miscellaneous Test Crossmatch 12/05/16 12/05/16 12/05/16 05:00 05:00 05:18 WBC RBC Hgb Hct MCV MCH MCHC RDW Plt Count Lymph % (Auto) [place] % (Auto) Lymph # [place] # Baso # Seg Neutrophils % Seg Neuts % (Manual) Lymphocytes % (Manual) Monocytes % (Manual) Eosinophils % (Manual) Basophils % (Manual) Nucleated RBC % Seg Neutrophils # Seg Neutrophils # Man Lymphocytes # (Manual) Monocytes # (Manual) Eosinophils # (Manual) Basophils # (Manual) PT INR Fibrinogen dRVVT Confirm Interp Factor V Activity POC ABG pH POC ABG pCO2 POC ABG pO2 ABG pO2 ABG HCO3 ABG Base Excess ABG Hemoglobin Oxyhemoglobin Sodium Potassium Chloride Carbon Dioxide 21 L BUN 85 H Creatinine 1.9 H Glucose 131 H POC Glucose 154 H Lactic Acid Calcium Phosphorus Magnesium Direct Bilirubin AST ALT Alkaline Phosphatase Lactate Dehydrogenase Troponin T C-Reactive Protein 19.30 H Total Protein Albumin Prealbumin Triglycerides Cholesterol LDL Cholesterol Direct HDL Cholesterol Urine pH Urine WBC (Auto) Urine Creatinine Urine Total Protein Fluid Total Protein Vancomycin Trough Rheumatoid Factor Complement C4 Miscellaneous Test Crossmatch 12/05/16 12/05/16 12/05/16 11:43 17:46 23:25 WBC RBC Hgb Hct MCV MCH MCHC RDW Plt Count Lymph % (Auto) [place] % (Auto) Lymph # [place] # Baso # Seg Neutrophils % Seg Neuts % (Manual) Lymphocytes % (Manual) Monocytes % (Manual) Eosinophils % (Manual) Basophils % (Manual) Nucleated RBC % Seg Neutrophils # Seg Neutrophils # Man Lymphocytes # (Manual) Monocytes # (Manual) Eosinophils # (Manual) Basophils # (Manual) PT INR Fibrinogen dRVVT Confirm Interp Factor V Activity POC ABG pH POC ABG pCO2 POC ABG pO2 ABG pO2 ABG HCO3 ABG Base Excess ABG Hemoglobin Oxyhemoglobin Sodium Potassium Chloride Carbon Dioxide BUN Creatinine Glucose POC Glucose 117 H 113 H 111 H Lactic Acid Calcium Phosphorus Magnesium Direct Bilirubin AST ALT Alkaline Phosphatase Lactate Dehydrogenase Troponin T C-Reactive Protein Total Protein Albumin Prealbumin Triglycerides Cholesterol LDL Cholesterol Direct HDL Cholesterol Urine pH Urine WBC (Auto) Urine Creatinine Urine Total Protein Fluid Total Protein Vancomycin Trough Rheumatoid Factor Complement C4 Miscellaneous Test Crossmatch 12/05/16 12/06/16 12/06/16 Unknown 04:58 06:00 WBC RBC Hgb Hct MCV MCH MCHC RDW Plt Count Lymph % (Auto) [place] % (Auto) Lymph # [place] # Baso # Seg Neutrophils % Seg Neuts % (Manual) Lymphocytes % (Manual) Monocytes % (Manual) Eosinophils % (Manual) Basophils % (Manual) Nucleated RBC % Seg Neutrophils # Seg Neutrophils # Man Lymphocytes # (Manual) Monocytes # (Manual) Eosinophils # (Manual) Basophils # (Manual) PT INR Fibrinogen dRVVT Confirm Interp Factor V Activity POC ABG pH POC ABG pCO2 POC ABG pO2 ABG pO2 75.2 L ABG HCO3 ABG Base Excess -3.4 L ABG Hemoglobin 7.4 L Oxyhemoglobin 94.5 L Sodium Potassium Chloride Carbon Dioxide 20 L BUN 99 H Creatinine 2.1 H Glucose 126 H POC Glucose 145 H Lactic Acid Calcium Phosphorus 4.80 H Magnesium Direct Bilirubin AST ALT Alkaline Phosphatase Lactate Dehydrogenase Troponin T C-Reactive Protein Total Protein Albumin Prealbumin Triglycerides Cholesterol LDL Cholesterol Direct HDL Cholesterol Urine pH Urine WBC (Auto) Urine Creatinine Urine Total Protein Fluid Total Protein Vancomycin Trough Rheumatoid Factor Complement C4 Miscellaneous Test Crossmatch 12/06/16 12/06/16 12/06/16 06:46 11:54 17:55 WBC RBC Hgb 8.3 L Hct 26.4 L MCV MCH MCHC RDW Plt Count Lymph % (Auto) [place] % (Auto) Lymph # [place] # Baso # Seg Neutrophils % Seg Neuts % (Manual) Lymphocytes % (Manual) Monocytes % (Manual) Eosinophils % (Manual) Basophils % (Manual) Nucleated RBC % Seg Neutrophils # Seg Neutrophils # Man Lymphocytes # (Manual) Monocytes # (Manual) Eosinophils # (Manual) Basophils # (Manual) PT INR Fibrinogen dRVVT Confirm Interp Factor V Activity POC ABG pH POC ABG pCO2 POC ABG pO2 ABG pO2 ABG HCO3 ABG Base Excess ABG Hemoglobin Oxyhemoglobin Sodium Potassium Chloride Carbon Dioxide BUN Creatinine Glucose POC Glucose 126 H 157 H Lactic Acid Calcium Phosphorus Magnesium Direct Bilirubin AST ALT Alkaline Phosphatase Lactate Dehydrogenase Troponin T C-Reactive Protein Total Protein Albumin Prealbumin Triglycerides Cholesterol LDL Cholesterol Direct HDL Cholesterol Urine pH Urine WBC (Auto) Urine Creatinine Urine Total Protein Fluid Total Protein Vancomycin Trough Rheumatoid Factor Complement C4 Miscellaneous Test Crossmatch 12/06/16 12/07/16 12/07/16 23:59 05:34 06:30 WBC RBC Hgb Hct MCV MCH MCHC RDW Plt Count Lymph % (Auto) [place] % (Auto) Lymph # [place] # Baso # Seg Neutrophils % Seg Neuts % (Manual) Lymphocytes % (Manual) Monocytes % (Manual) Eosinophils % (Manual) Basophils % (Manual) Nucleated RBC % Seg Neutrophils # Seg Neutrophils # Man Lymphocytes # (Manual) Monocytes # (Manual) Eosinophils # (Manual) Basophils # (Manual) PT INR Fibrinogen dRVVT Confirm Interp Factor V Activity POC ABG pH POC ABG pCO2 POC ABG pO2 ABG pO2 ABG HCO3 ABG Base Excess ABG Hemoglobin Oxyhemoglobin Sodium Potassium Chloride Carbon Dioxide BUN 67 H Creatinine 1.4 H Glucose 126 H POC Glucose 129 H 129 H Lactic Acid Calcium Phosphorus Magnesium Direct Bilirubin AST ALT Alkaline Phosphatase Lactate Dehydrogenase Troponin T C-Reactive Protein Total Protein Albumin Prealbumin Triglycerides Cholesterol LDL Cholesterol Direct HDL Cholesterol Urine pH Urine WBC (Auto) Urine Creatinine Urine Total Protein Fluid Total Protein Vancomycin Trough Rheumatoid Factor Complement C4 Miscellaneous Test Crossmatch 12/07/16 12/07/16 12/07/16 06:30 08:00 09:45 WBC 18.8 H RBC 2.52 L Hgb 6.9 L 6.8 L Hct 21.2 L 21.1 L MCV MCH 27 L MCHC RDW 18.0 H Plt Count Lymph % (Auto) [place] % (Auto) 9.9 H Lymph # [place] # 1.9 H Baso # Seg Neutrophils % 71.8 H Seg Neuts % (Manual) Lymphocytes % (Manual) Monocytes % (Manual) Eosinophils % (Manual) Basophils % (Manual) Nucleated RBC % Seg Neutrophils # 13.5 H Seg Neutrophils # Man Lymphocytes # (Manual) Monocytes # (Manual) Eosinophils # (Manual) Basophils # (Manual) PT INR Fibrinogen dRVVT Confirm Interp Factor V Activity POC ABG pH POC ABG pCO2 POC ABG pO2 ABG pO2 ABG HCO3 ABG Base Excess ABG Hemoglobin Oxyhemoglobin Sodium Potassium Chloride Carbon Dioxide BUN Creatinine Glucose POC Glucose Lactic Acid Calcium Phosphorus Magnesium Direct Bilirubin AST ALT Alkaline Phosphatase Lactate Dehydrogenase Troponin T C-Reactive Protein Total Protein Albumin Prealbumin Triglycerides Cholesterol LDL Cholesterol Direct HDL Cholesterol Urine pH Urine WBC (Auto) Urine Creatinine Urine Total Protein Fluid Total Protein Vancomycin Trough Rheumatoid Factor Complement C4 Miscellaneous Test Crossmatch See Detail 12/07/16 12/07/16 12/07/16 11:44 18:19 23:59 WBC RBC Hgb Hct MCV MCH MCHC RDW Plt Count Lymph % (Auto) [place] % (Auto) Lymph # [place] # Baso # Seg Neutrophils % Seg Neuts % (Manual) Lymphocytes % (Manual) Monocytes % (Manual) Eosinophils % (Manual) Basophils % (Manual) Nucleated RBC % Seg Neutrophils # Seg Neutrophils # Man Lymphocytes # (Manual) Monocytes # (Manual) Eosinophils # (Manual) Basophils # (Manual) PT INR Fibrinogen dRVVT Confirm Interp Factor V Activity POC ABG pH POC ABG pCO2 POC ABG pO2 ABG pO2 ABG HCO3 ABG Base Excess ABG Hemoglobin Oxyhemoglobin Sodium Potassium Chloride Carbon Dioxide BUN Creatinine Glucose POC Glucose 137 H 138 H 133 H Lactic Acid Calcium Phosphorus Magnesium Direct Bilirubin AST ALT Alkaline Phosphatase Lactate Dehydrogenase Troponin T C-Reactive Protein Total Protein Albumin Prealbumin Triglycerides Cholesterol LDL Cholesterol Direct HDL Cholesterol Urine pH Urine WBC (Auto) Urine Creatinine Urine Total Protein Fluid Total Protein Vancomycin Trough Rheumatoid Factor Complement C4 Miscellaneous Test Crossmatch 12/08/16 12/08/16 12/08/16 05:25 05:30 05:30 WBC 23.8 H RBC 2.88 L Hgb 8.1 L Hct 24.3 L MCV MCH MCHC RDW 16.7 H Plt Count Lymph % (Auto) [place] % (Auto) Lymph # [place] # Baso # Seg Neutrophils % Seg Neuts % (Manual) 76.0 H Lymphocytes % (Manual) 9.0 L Monocytes % (Manual) 9.0 H Eosinophils % (Manual) Basophils % (Manual) Nucleated RBC % Seg Neutrophils # Seg Neutrophils # Man 18.1 H Lymphocytes # (Manual) Monocytes # (Manual) 2.1 H Eosinophils # (Manual) Basophils # (Manual) PT INR Fibrinogen dRVVT Confirm Interp Factor V Activity POC ABG pH POC ABG pCO2 POC ABG pO2 ABG pO2 ABG HCO3 ABG Base Excess ABG Hemoglobin Oxyhemoglobin Sodium Potassium Chloride Carbon Dioxide 21 L BUN 76 H Creatinine 1.6 H Glucose 133 H POC Glucose 177 H Lactic Acid Calcium Phosphorus Magnesium Direct Bilirubin AST ALT Alkaline Phosphatase Lactate Dehydrogenase Troponin T C-Reactive Protein Total Protein Albumin Prealbumin Triglycerides Cholesterol LDL Cholesterol Direct HDL Cholesterol Urine pH Urine WBC (Auto) Urine Creatinine Urine Total Protein Fluid Total Protein Vancomycin Trough Rheumatoid Factor Complement C4 Miscellaneous Test Crossmatch 12/08/16 12/08/16 12/09/16 11:45 18:00 00:00 WBC RBC Hgb Hct MCV MCH MCHC RDW Plt Count Lymph % (Auto) [place] % (Auto) Lymph # [place] # Baso # Seg Neutrophils % Seg Neuts % (Manual) Lymphocytes % (Manual) Monocytes % (Manual) Eosinophils % (Manual) Basophils % (Manual) Nucleated RBC % Seg Neutrophils # Seg Neutrophils # Man Lymphocytes # (Manual) Monocytes # (Manual) Eosinophils # (Manual) Basophils # (Manual) PT INR Fibrinogen dRVVT Confirm Interp Factor V Activity POC ABG pH POC ABG pCO2 POC ABG pO2 ABG pO2 ABG HCO3 ABG Base Excess ABG Hemoglobin Oxyhemoglobin Sodium Potassium Chloride Carbon Dioxide BUN Creatinine Glucose POC Glucose 163 H 123 H 137 H Lactic Acid Calcium Phosphorus Magnesium Direct Bilirubin AST ALT Alkaline Phosphatase Lactate Dehydrogenase Troponin T C-Reactive Protein Total Protein Albumin Prealbumin Triglycerides Cholesterol LDL Cholesterol Direct HDL Cholesterol Urine pH Urine WBC (Auto) Urine Creatinine Urine Total Protein Fluid Total Protein Vancomycin Trough Rheumatoid Factor Complement C4 Miscellaneous Test Crossmatch 12/09/16 12/09/16 12/09/16 05:34 06:00 06:00 WBC 15.5 H RBC 2.87 L Hgb 8.0 L Hct 24.2 L MCV MCH MCHC RDW 17.2 H Plt Count Lymph % (Auto) [place] % (Auto) 11.6 H Lymph # [place] # 1.8 H Baso # Seg Neutrophils % 70.8 H Seg Neuts % (Manual) Lymphocytes % (Manual) Monocytes % (Manual) Eosinophils % (Manual) Basophils % (Manual) Nucleated RBC % Seg Neutrophils # 11.0 H Seg Neutrophils # Man Lymphocytes # (Manual) Monocytes # (Manual) Eosinophils # (Manual) Basophils # (Manual) PT INR Fibrinogen dRVVT Confirm Interp Factor V Activity POC ABG pH POC ABG pCO2 POC ABG pO2 ABG pO2 ABG HCO3 ABG Base Excess ABG Hemoglobin Oxyhemoglobin Sodium Potassium Chloride Carbon Dioxide BUN 51 H Creatinine Glucose 117 H POC Glucose 136 H Lactic Acid Calcium Phosphorus Magnesium Direct Bilirubin AST ALT Alkaline Phosphatase Lactate Dehydrogenase Troponin T C-Reactive Protein Total Protein Albumin Prealbumin Triglycerides Cholesterol LDL Cholesterol Direct HDL Cholesterol Urine pH Urine WBC (Auto) Urine Creatinine Urine Total Protein Fluid Total Protein Vancomycin Trough Rheumatoid Factor Complement C4 Miscellaneous Test Crossmatch 12/09/16 12/09/16 12/09/16 12:29 17:52 23:10 WBC RBC Hgb Hct MCV MCH MCHC RDW Plt Count Lymph % (Auto) [place] % (Auto) Lymph # [place] # Baso # Seg Neutrophils % Seg Neuts % (Manual) Lymphocytes % (Manual) Monocytes % (Manual) Eosinophils % (Manual) Basophils % (Manual) Nucleated RBC % Seg Neutrophils # Seg Neutrophils # Man Lymphocytes # (Manual) Monocytes # (Manual) Eosinophils # (Manual) Basophils # (Manual) PT INR Fibrinogen dRVVT Confirm Interp Factor V Activity POC ABG pH POC ABG pCO2 POC ABG pO2 ABG pO2 ABG HCO3 ABG Base Excess ABG Hemoglobin Oxyhemoglobin Sodium Potassium Chloride Carbon Dioxide BUN Creatinine Glucose POC Glucose 139 H 140 H 129 H Lactic Acid Calcium Phosphorus Magnesium Direct Bilirubin AST ALT Alkaline Phosphatase Lactate Dehydrogenase Troponin T C-Reactive Protein Total Protein Albumin Prealbumin Triglycerides Cholesterol LDL Cholesterol Direct HDL Cholesterol Urine pH Urine WBC (Auto) Urine Creatinine Urine Total Protein Fluid Total Protein Vancomycin Trough Rheumatoid Factor Complement C4 Miscellaneous Test Crossmatch 12/10/16 12/10/16 12/10/16 05:00 05:00 06:54 WBC 15.7 H RBC 2.87 L Hgb 8.2 L Hct 24.4 L MCV MCH MCHC RDW 17.2 H Plt Count Lymph % (Auto) [place] % (Auto) 8.3 H Lymph # [place] # 1.3 H Baso # Seg Neutrophils % 72.8 H Seg Neuts % (Manual) Lymphocytes % (Manual) Monocytes % (Manual) Eosinophils % (Manual) Basophils % (Manual) Nucleated RBC % Seg Neutrophils # 11.4 H Seg Neutrophils # Man Lymphocytes # (Manual) Monocytes # (Manual) Eosinophils # (Manual) Basophils # (Manual) PT INR Fibrinogen dRVVT Confirm Interp Factor V Activity POC ABG pH POC ABG pCO2 POC ABG pO2 ABG pO2 ABG HCO3 ABG Base Excess ABG Hemoglobin Oxyhemoglobin Sodium Potassium Chloride Carbon Dioxide BUN 64 H Creatinine 1.4 H Glucose 134 H POC Glucose 154 H Lactic Acid Calcium Phosphorus Magnesium Direct Bilirubin AST ALT Alkaline Phosphatase Lactate Dehydrogenase Troponin T C-Reactive Protein Total Protein Albumin Prealbumin Triglycerides Cholesterol LDL Cholesterol Direct HDL Cholesterol Urine pH Urine WBC (Auto) Urine Creatinine Urine Total Protein Fluid Total Protein Vancomycin Trough Rheumatoid Factor Complement C4 Miscellaneous Test Crossmatch 12/10/16 12/10/16 12/10/16 11:58 17:29 23:52 WBC RBC Hgb Hct MCV MCH MCHC RDW Plt Count Lymph % (Auto) [place] % (Auto) Lymph # [place] # Baso # Seg Neutrophils % Seg Neuts % (Manual) Lymphocytes % (Manual) Monocytes % (Manual) Eosinophils % (Manual) Basophils % (Manual) Nucleated RBC % Seg Neutrophils # Seg Neutrophils # Man Lymphocytes # (Manual) Monocytes # (Manual) Eosinophils # (Manual) Basophils # (Manual) PT INR Fibrinogen dRVVT Confirm Interp Factor V Activity POC ABG pH POC ABG pCO2 POC ABG pO2 ABG pO2 ABG HCO3 ABG Base Excess ABG Hemoglobin Oxyhemoglobin Sodium Potassium Chloride Carbon Dioxide BUN Creatinine Glucose POC Glucose 144 H 163 H 125 H Lactic Acid Calcium Phosphorus Magnesium Direct Bilirubin AST ALT Alkaline Phosphatase Lactate Dehydrogenase Troponin T C-Reactive Protein Total Protein Albumin Prealbumin Triglycerides Cholesterol LDL Cholesterol Direct HDL Cholesterol Urine pH Urine WBC (Auto) Urine Creatinine Urine Total Protein Fluid Total Protein Vancomycin Trough Rheumatoid Factor Complement C4 Miscellaneous Test Crossmatch 12/11/16 12/11/16 12/11/16 05:38 06:30 06:30 WBC 14.4 H RBC 2.76 L Hgb 7.7 L Hct 23.4 L MCV MCH MCHC RDW 17.2 H Plt Count Lymph % (Auto) [place] % (Auto) 8.8 H Lymph # [place] # 1.3 H Baso # Seg Neutrophils % 72.5 H Seg Neuts % (Manual) Lymphocytes % (Manual) Monocytes % (Manual) Eosinophils % (Manual) Basophils % (Manual) Nucleated RBC % Seg Neutrophils # 10.5 H Seg Neutrophils # Man Lymphocytes # (Manual) Monocytes # (Manual) Eosinophils # (Manual) Basophils # (Manual) PT INR Fibrinogen dRVVT Confirm Interp Factor V Activity POC ABG pH POC ABG pCO2 POC ABG pO2 ABG pO2 ABG HCO3 ABG Base Excess ABG Hemoglobin Oxyhemoglobin Sodium Potassium Chloride Carbon Dioxide BUN 43 H Creatinine Glucose 124 H POC Glucose 141 H Lactic Acid Calcium 8.3 L Phosphorus Magnesium 1.60 L Direct Bilirubin AST ALT Alkaline Phosphatase Lactate Dehydrogenase Troponin T C-Reactive Protein Total Protein Albumin Prealbumin Triglycerides Cholesterol LDL Cholesterol Direct HDL Cholesterol Urine pH Urine WBC (Auto) Urine Creatinine Urine Total Protein Fluid Total Protein Vancomycin Trough Rheumatoid Factor Complement C4 Miscellaneous Test Crossmatch 12/11/16 12/11/16 12/11/16 11:15 17:59 23:48 WBC RBC Hgb Hct MCV MCH MCHC RDW Plt Count Lymph % (Auto) [place] % (Auto) Lymph # [place] # Baso # Seg Neutrophils % Seg Neuts % (Manual) Lymphocytes % (Manual) Monocytes % (Manual) Eosinophils % (Manual) Basophils % (Manual) Nucleated RBC % Seg Neutrophils # Seg Neutrophils # Man Lymphocytes # (Manual) Monocytes # (Manual) Eosinophils # (Manual) Basophils # (Manual) PT INR Fibrinogen dRVVT Confirm Interp Factor V Activity POC ABG pH POC ABG pCO2 POC ABG pO2 ABG pO2 ABG HCO3 ABG Base Excess ABG Hemoglobin Oxyhemoglobin Sodium Potassium Chloride Carbon Dioxide BUN Creatinine Glucose POC Glucose 188 H 106 H 119 H Lactic Acid Calcium Phosphorus Magnesium Direct Bilirubin AST ALT Alkaline Phosphatase Lactate Dehydrogenase Troponin T C-Reactive Protein Total Protein Albumin Prealbumin Triglycerides Cholesterol LDL Cholesterol Direct HDL Cholesterol Urine pH Urine WBC (Auto) Urine Creatinine Urine Total Protein Fluid Total Protein Vancomycin Trough Rheumatoid Factor Complement C4 Miscellaneous Test Crossmatch 12/12/16 12/12/16 12/12/16 05:00 06:01 12:20 WBC 16.7 H RBC 2.87 L Hgb 8.0 L Hct 24.2 L MCV MCH MCHC RDW 17.6 H Plt Count Lymph % (Auto) [place] % (Auto) Lymph # [place] # 1.2 H Baso # Seg Neutrophils % 75.3 H Seg Neuts % (Manual) Lymphocytes % (Manual) Monocytes % (Manual) Eosinophils % (Manual) Basophils % (Manual) Nucleated RBC % Seg Neutrophils # 12.6 H Seg Neutrophils # Man Lymphocytes # (Manual) Monocytes # (Manual) Eosinophils # (Manual) Basophils # (Manual) PT INR Fibrinogen dRVVT Confirm Interp Factor V Activity POC ABG pH POC ABG pCO2 POC ABG pO2 ABG pO2 ABG HCO3 ABG Base Excess ABG Hemoglobin Oxyhemoglobin Sodium Potassium Chloride Carbon Dioxide BUN Creatinine Glucose POC Glucose 134 H 149 H Lactic Acid Calcium Phosphorus Magnesium Direct Bilirubin AST ALT Alkaline Phosphatase Lactate Dehydrogenase Troponin T C-Reactive Protein Total Protein Albumin Prealbumin Triglycerides Cholesterol LDL Cholesterol Direct HDL Cholesterol Urine pH Urine WBC (Auto) Urine Creatinine Urine Total Protein Fluid Total Protein Vancomycin Trough Rheumatoid Factor Complement C4 Miscellaneous Test Crossmatch 10/12/12/16 12/12/16 17:38 23:01 Unknown WBC RBC Hgb Hct MCV MCH MCHC RDW Plt Count Lymph % (Auto) [place] % (Auto) Lymph # [place] # Baso # Seg Neutrophils % Seg Neuts % (Manual) Lymphocytes % (Manual) Monocytes % (Manual) Eosinophils % (Manual) Basophils % (Manual) Nucleated RBC % Seg Neutrophils # Seg Neutrophils # Man Lymphocytes # (Manual) Monocytes # (Manual) Eosinophils # (Manual) Basophils # (Manual) PT INR Fibrinogen dRVVT Confirm Interp Factor V Activity POC ABG pH POC ABG pCO2 POC ABG pO2 ABG pO2 ABG HCO3 ABG Base Excess ABG Hemoglobin Oxyhemoglobin Sodium Potassium Chloride Carbon Dioxide BUN 60 H Creatinine 1.3 H Glucose 126 H POC Glucose 127 H 144 H Lactic Acid Calcium Phosphorus Magnesium Direct Bilirubin AST ALT Alkaline Phosphatase Lactate Dehydrogenase Troponin T C-Reactive Protein Total Protein Albumin Prealbumin Triglycerides Cholesterol LDL Cholesterol Direct HDL Cholesterol Urine pH Urine WBC (Auto) Urine Creatinine Urine Total Protein Fluid Total Protein Vancomycin Trough Rheumatoid Factor Complement C4 Miscellaneous Test Crossmatch 12/13/16 12/13/16 12/13/16 04:00 04:00 05:19 WBC 18.7 H RBC 2.89 L Hgb 8.3 L Hct 24.6 L MCV MCH MCHC RDW 17.5 H Plt Count Lymph % (Auto) [place] % (Auto) Lymph # [place] # 1.3 H Baso # Seg Neutrophils % 71.5 H Seg Neuts % (Manual) Lymphocytes % (Manual) Monocytes % (Manual) Eosinophils % (Manual) Basophils % (Manual) Nucleated RBC % Seg Neutrophils # 13.4 H Seg Neutrophils # Man Lymphocytes # (Manual) Monocytes # (Manual) Eosinophils # (Manual) Basophils # (Manual) PT INR Fibrinogen dRVVT Confirm Interp Factor V Activity POC ABG pH POC ABG pCO2 POC ABG pO2 ABG pO2 ABG HCO3 ABG Base Excess ABG Hemoglobin Oxyhemoglobin Sodium Potassium Chloride Carbon Dioxide BUN 73 H Creatinine 1.5 H Glucose 141 H POC Glucose 171 H Lactic Acid Calcium Phosphorus Magnesium Direct Bilirubin AST ALT Alkaline Phosphatase Lactate Dehydrogenase Troponin T C-Reactive Protein Total Protein Albumin Prealbumin Triglycerides Cholesterol LDL Cholesterol Direct HDL Cholesterol Urine pH Urine WBC (Auto) Urine Creatinine Urine Total Protein Fluid Total Protein Vancomycin Trough Rheumatoid Factor Complement C4 Miscellaneous Test Crossmatch 12/13/16 12/13/1617 12:28 16:48 00:01 WBC RBC Hgb Hct MCV MCH MCHC RDW Plt Count Lymph % (Auto) [place] % (Auto) Lymph # [place] # Baso # Seg Neutrophils % Seg Neuts % (Manual) Lymphocytes % (Manual) Monocytes % (Manual) Eosinophils % (Manual) Basophils % (Manual) Nucleated RBC % Seg Neutrophils # Seg Neutrophils # Man Lymphocytes # (Manual) Monocytes # (Manual) Eosinophils # (Manual) Basophils # (Manual) PT INR Fibrinogen dRVVT Confirm Interp Factor V Activity POC ABG pH POC ABG pCO2 POC ABG pO2 ABG pO2 ABG HCO3 ABG Base Excess ABG Hemoglobin Oxyhemoglobin Sodium Potassium Chloride Carbon Dioxide BUN Creatinine Glucose POC Glucose 206 H 173 H 139 H Lactic Acid Calcium Phosphorus Magnesium Direct Bilirubin AST ALT Alkaline Phosphatase Lactate Dehydrogenase Troponin T C-Reactive Protein Total Protein Albumin Prealbumin Triglycerides Cholesterol LDL Cholesterol Direct HDL Cholesterol Urine pH Urine WBC (Auto) Urine Creatinine Urine Total Protein Fluid Total Protein Vancomycin Trough Rheumatoid Factor Complement C4 Miscellaneous Test Crossmatch 12/14/16 12/14/16 12/14/16 05:16 06:10 11:17 WBC RBC Hgb Hct MCV MCH MCHC RDW Plt Count Lymph % (Auto) [place] % (Auto) Lymph # [place] # Baso # Seg Neutrophils % Seg Neuts % (Manual) Lymphocytes % (Manual) Monocytes % (Manual) Eosinophils % (Manual) Basophils % (Manual) Nucleated RBC % Seg Neutrophils # Seg Neutrophils # Man Lymphocytes # (Manual) Monocytes # (Manual) Eosinophils # (Manual) Basophils # (Manual) PT INR Fibrinogen dRVVT Confirm Interp Factor V Activity POC ABG pH POC ABG pCO2 POC ABG pO2 ABG pO2 ABG HCO3 ABG Base Excess ABG Hemoglobin Oxyhemoglobin Sodium Potassium Chloride Carbon Dioxide BUN 57 H Creatinine 1.4 H Glucose 135 H POC Glucose 158 H 137 H Lactic Acid Calcium Phosphorus Magnesium Direct Bilirubin AST ALT Alkaline Phosphatase Lactate Dehydrogenase Troponin T C-Reactive Protein Total Protein Albumin Prealbumin Triglycerides Cholesterol LDL Cholesterol Direct HDL Cholesterol Urine pH Urine WBC (Auto) Urine Creatinine Urine Total Protein Fluid Total Protein Vancomycin Trough Rheumatoid Factor Complement C4 Miscellaneous Test Crossmatch 12/14/16 12/14/16 12/15/16 17:52 23:27 04:00 WBC RBC Hgb Hct MCV MCH MCHC RDW Plt Count Lymph % (Auto) [place] % (Auto) Lymph # [place] # Baso # Seg Neutrophils % Seg Neuts % (Manual) Lymphocytes % (Manual) Monocytes % (Manual) Eosinophils % (Manual) Basophils % (Manual) Nucleated RBC % Seg Neutrophils # Seg Neutrophils # Man Lymphocytes # (Manual) Monocytes # (Manual) Eosinophils # (Manual) Basophils # (Manual) PT INR Fibrinogen dRVVT Confirm Interp Factor V Activity POC ABG pH POC ABG pCO2 POC ABG pO2 ABG pO2 ABG HCO3 ABG Base Excess ABG Hemoglobin Oxyhemoglobin Sodium Potassium Chloride 97.9 L Carbon Dioxide BUN 75 H Creatinine 1.6 H Glucose 122 H POC Glucose 149 H 163 H Lactic Acid Calcium Phosphorus 5.20 H Magnesium Direct Bilirubin AST ALT Alkaline Phosphatase Lactate Dehydrogenase Troponin T C-Reactive Protein Total Protein Albumin Prealbumin Triglycerides Cholesterol LDL Cholesterol Direct HDL Cholesterol Urine pH Urine WBC (Auto) Urine Creatinine Urine Total Protein Fluid Total Protein Vancomycin Trough Rheumatoid Factor Complement C4 Miscellaneous Test Crossmatch 12/15/16 12/15/16 12/15/16 05:50 11:24 17:01 WBC RBC Hgb Hct MCV MCH MCHC RDW Plt Count Lymph % (Auto) [place] % (Auto) Lymph # [place] # Baso # Seg Neutrophils % Seg Neuts % (Manual) Lymphocytes % (Manual) Monocytes % (Manual) Eosinophils % (Manual) Basophils % (Manual) Nucleated RBC % Seg Neutrophils # Seg Neutrophils # Man Lymphocytes # (Manual) Monocytes # (Manual) Eosinophils # (Manual) Basophils # (Manual) PT INR Fibrinogen dRVVT Confirm Interp Factor V Activity POC ABG pH POC ABG pCO2 POC ABG pO2 ABG pO2 ABG HCO3 ABG Base Excess ABG Hemoglobin Oxyhemoglobin Sodium Potassium Chloride Carbon Dioxide BUN Creatinine Glucose POC Glucose 150 H 146 H 167 H Lactic Acid Calcium Phosphorus Magnesium Direct Bilirubin AST ALT Alkaline Phosphatase Lactate Dehydrogenase Troponin T C-Reactive Protein Total Protein Albumin Prealbumin Triglycerides Cholesterol LDL Cholesterol Direct HDL Cholesterol Urine pH Urine WBC (Auto) Urine Creatinine Urine Total Protein Fluid Total Protein Vancomycin Trough Rheumatoid Factor Complement C4 Miscellaneous Test Crossmatch 12/15/16 12/16/16 12/16/16 23:34 05:25 11:24 WBC RBC Hgb Hct MCV MCH MCHC RDW Plt Count Lymph % (Auto) [place] % (Auto) Lymph # [place] # Baso # Seg Neutrophils % Seg Neuts % (Manual) Lymphocytes % (Manual) Monocytes % (Manual) Eosinophils % (Manual) Basophils % (Manual) Nucleated RBC % Seg Neutrophils # Seg Neutrophils # Man Lymphocytes # (Manual) Monocytes # (Manual) Eosinophils # (Manual) Basophils # (Manual) PT INR Fibrinogen dRVVT Confirm Interp Factor V Activity POC ABG pH POC ABG pCO2 POC ABG pO2 ABG pO2 ABG HCO3 ABG Base Excess ABG Hemoglobin Oxyhemoglobin Sodium Potassium Chloride Carbon Dioxide BUN Creatinine Glucose POC Glucose 127 H 139 H 165 H Lactic Acid Calcium Phosphorus Magnesium Direct Bilirubin AST ALT Alkaline Phosphatase Lactate Dehydrogenase Troponin T C-Reactive Protein Total Protein Albumin Prealbumin Triglycerides Cholesterol LDL Cholesterol Direct HDL Cholesterol Urine pH Urine WBC (Auto) Urine Creatinine Urine Total Protein Fluid Total Protein Vancomycin Trough Rheumatoid Factor Complement C4 Miscellaneous Test Crossmatch 12/16/16 12/16/16 12/16/16 15:30 16:25 17:31 WBC 17.8 H RBC 2.38 L Hgb 6.4 L Hct 20.3 L MCV MCH 27 L MCHC RDW 17.4 H Plt Count Lymph % (Auto) [place] % (Auto) Lymph # [place] # Baso # Seg Neutrophils % Seg Neuts % (Manual) Lymphocytes % (Manual) Monocytes % (Manual) 10.0 H Eosinophils % (Manual) Basophils % (Manual) Nucleated RBC % Seg Neutrophils # Seg Neutrophils # Man 8.5 H Lymphocytes # (Manual) Monocytes # (Manual) 1.8 H Eosinophils # (Manual) Basophils # (Manual) PT INR Fibrinogen dRVVT Confirm Interp Factor V Activity POC ABG pH POC ABG pCO2 POC ABG pO2 ABG pO2 ABG HCO3 ABG Base Excess ABG Hemoglobin Oxyhemoglobin Sodium Potassium Chloride Carbon Dioxide BUN Creatinine Glucose POC Glucose 176 H Lactic Acid Calcium Phosphorus Magnesium Direct Bilirubin AST ALT Alkaline Phosphatase Lactate Dehydrogenase Troponin T C-Reactive Protein Total Protein Albumin Prealbumin Triglycerides Cholesterol LDL Cholesterol Direct HDL Cholesterol Urine pH Urine WBC (Auto) Urine Creatinine Urine Total Protein Fluid Total Protein Vancomycin Trough Rheumatoid Factor Complement C4 Miscellaneous Test Crossmatch See Detail 12/17/16 12/17/16 12/17/16 00:14 04:00 05:00 WBC 20.0 H RBC 2.99 L Hgb 8.5 L Hct 25.7 L MCV MCH MCHC RDW 17.2 H Plt Count Lymph % (Auto) [place] % (Auto) Lymph # [place] # Baso # Seg Neutrophils % Seg Neuts % (Manual) Lymphocytes % (Manual) Monocytes % (Manual) Eosinophils % (Manual) Basophils % (Manual) Nucleated RBC % Seg Neutrophils # Seg Neutrophils # Man Lymphocytes # (Manual) Monocytes # (Manual) Eosinophils # (Manual) Basophils # (Manual) PT INR Fibrinogen dRVVT Confirm Interp Factor V Activity POC ABG pH POC ABG pCO2 POC ABG pO2 ABG pO2 ABG HCO3 ABG Base Excess ABG Hemoglobin Oxyhemoglobin Sodium Potassium Chloride 97.7 L Carbon Dioxide BUN 73 H Creatinine 1.7 H Glucose 136 H POC Glucose 148 H Lactic Acid Calcium Phosphorus 2.20 L Magnesium 2.70 H Direct Bilirubin AST ALT Alkaline Phosphatase Lactate Dehydrogenase Troponin T C-Reactive Protein Total Protein Albumin Prealbumin Triglycerides Cholesterol LDL Cholesterol Direct HDL Cholesterol Urine pH Urine WBC (Auto) Urine Creatinine Urine Total Protein Fluid Total Protein Vancomycin Trough Rheumatoid Factor Complement C4 Miscellaneous Test Crossmatch 12/17/16 12/17/16 12/17/16 05:39 12:50 16:32 WBC RBC Hgb Hct MCV MCH MCHC RDW Plt Count Lymph % (Auto) [place] % (Auto) Lymph # [place] # Baso # Seg Neutrophils % Seg Neuts % (Manual) Lymphocytes % (Manual) Monocytes % (Manual) Eosinophils % (Manual) Basophils % (Manual) Nucleated RBC % Seg Neutrophils # Seg Neutrophils # Man Lymphocytes # (Manual) Monocytes # (Manual) Eosinophils # (Manual) Basophils # (Manual) PT INR Fibrinogen dRVVT Confirm Interp Factor V Activity POC ABG pH POC ABG pCO2 POC ABG pO2 ABG pO2 ABG HCO3 ABG Base Excess ABG Hemoglobin Oxyhemoglobin Sodium Potassium Chloride Carbon Dioxide BUN Creatinine Glucose POC Glucose 162 H 146 H 169 H Lactic Acid Calcium Phosphorus Magnesium Direct Bilirubin AST ALT Alkaline Phosphatase Lactate Dehydrogenase Troponin T C-Reactive Protein Total Protein Albumin Prealbumin Triglycerides Cholesterol LDL Cholesterol Direct HDL Cholesterol Urine pH Urine WBC (Auto) Urine Creatinine Urine Total Protein Fluid Total Protein Vancomycin Trough Rheumatoid Factor Complement C4 Miscellaneous Test Crossmatch 12/17/16 12/18/16 12/18/16 23:57 05:00 05:32 WBC RBC Hgb Hct MCV MCH MCHC RDW Plt Count Lymph % (Auto) [place] % (Auto) Lymph # [place] # Baso # Seg Neutrophils % Seg Neuts % (Manual) Lymphocytes % (Manual) Monocytes % (Manual) Eosinophils % (Manual) Basophils % (Manual) Nucleated RBC % Seg Neutrophils # Seg Neutrophils # Man Lymphocytes # (Manual) Monocytes # (Manual) Eosinophils # (Manual) Basophils # (Manual) PT INR Fibrinogen dRVVT Confirm Interp Factor V Activity POC ABG pH POC ABG pCO2 POC ABG pO2 ABG pO2 ABG HCO3 ABG Base Excess ABG Hemoglobin Oxyhemoglobin Sodium Potassium Chloride 97.0 L Carbon Dioxide BUN 63 H Creatinine 1.4 H Glucose 174 H POC Glucose 145 H 201 H Lactic Acid Calcium Phosphorus 1.70 L D Magnesium Direct Bilirubin AST ALT Alkaline Phosphatase 257 H Lactate Dehydrogenase Troponin T C-Reactive Protein Total Protein 5.9 L Albumin 1.8 L Prealbumin Triglycerides Cholesterol LDL Cholesterol Direct HDL Cholesterol Urine pH Urine WBC (Auto) Urine Creatinine Urine Total Protein Fluid Total Protein Vancomycin Trough Rheumatoid Factor Complement C4 Miscellaneous Test Crossmatch 12/18/16 12/18/16 12/18/16 11:43 16:52 23:52 WBC RBC Hgb Hct MCV MCH MCHC RDW Plt Count Lymph % (Auto) [place] % (Auto) Lymph # [place] # Baso # Seg Neutrophils % Seg Neuts % (Manual) Lymphocytes % (Manual) Monocytes % (Manual) Eosinophils % (Manual) Basophils % (Manual) Nucleated RBC % Seg Neutrophils # Seg Neutrophils # Man Lymphocytes # (Manual) Monocytes # (Manual) Eosinophils # (Manual) Basophils # (Manual) PT INR Fibrinogen dRVVT Confirm Interp Factor V Activity POC ABG pH POC ABG pCO2 POC ABG pO2 ABG pO2 ABG HCO3 ABG Base Excess ABG Hemoglobin Oxyhemoglobin Sodium Potassium Chloride Carbon Dioxide BUN Creatinine Glucose POC Glucose 177 H 110 H 162 H Lactic Acid Calcium Phosphorus Magnesium Direct Bilirubin AST ALT Alkaline Phosphatase Lactate Dehydrogenase Troponin T C-Reactive Protein Total Protein Albumin Prealbumin Triglycerides Cholesterol LDL Cholesterol Direct HDL Cholesterol Urine pH Urine WBC (Auto) Urine Creatinine Urine Total Protein Fluid Total Protein Vancomycin Trough Rheumatoid Factor Complement C4 Miscellaneous Test Crossmatch 12/19/16 12/19/16 12/19/16 05:02 05:24 09:30 WBC 20.1 H RBC 2.73 L Hgb 7.6 L Hct 23.6 L MCV MCH MCHC RDW 17.6 H Plt Count Lymph % (Auto) [place] % (Auto) Lymph # [place] # Baso # Seg Neutrophils % Seg Neuts % (Manual) Lymphocytes % (Manual) 13.0 L Monocytes % (Manual) Eosinophils % (Manual) Basophils % (Manual) Nucleated RBC % 1.0 H Seg Neutrophils # Seg Neutrophils # Man 12.9 H Lymphocytes # (Manual) Monocytes # (Manual) 1.4 H Eosinophils # (Manual) Basophils # (Manual) 0.2 H PT INR Fibrinogen dRVVT Confirm Interp Factor V Activity POC ABG pH POC ABG pCO2 POC ABG pO2 ABG pO2 ABG HCO3 ABG Base Excess ABG Hemoglobin Oxyhemoglobin Sodium Potassium Chloride 97.8 L Carbon Dioxide BUN 84 H Creatinine 1.6 H Glucose 133 H POC Glucose 134 H Lactic Acid Calcium Phosphorus Magnesium Direct Bilirubin AST ALT Alkaline Phosphatase Lactate Dehydrogenase Troponin T C-Reactive Protein Total Protein Albumin Prealbumin Triglycerides Cholesterol LDL Cholesterol Direct HDL Cholesterol Urine pH Urine WBC (Auto) Urine Creatinine Urine Total Protein Fluid Total Protein Vancomycin Trough Rheumatoid Factor Complement C4 Miscellaneous Test Crossmatch 12/19/16 12/19/16 12/19/16 09:36 11:12 18:29 WBC RBC Hgb Hct MCV MCH MCHC RDW Plt Count Lymph % (Auto) [place] % (Auto) Lymph # [place] # Baso # Seg Neutrophils % Seg Neuts % (Manual) Lymphocytes % (Manual) Monocytes % (Manual) Eosinophils % (Manual) Basophils % (Manual) Nucleated RBC % Seg Neutrophils # Seg Neutrophils # Man Lymphocytes # (Manual) Monocytes # (Manual) Eosinophils # (Manual) Basophils # (Manual) PT INR Fibrinogen dRVVT Confirm Interp Factor V Activity POC ABG pH 7.503 H POC ABG pCO2 30.1 L POC ABG pO2 ABG pO2 ABG HCO3 ABG Base Excess ABG Hemoglobin Oxyhemoglobin Sodium Potassium Chloride Carbon Dioxide BUN Creatinine Glucose POC Glucose 138 H 156 H Lactic Acid Calcium Phosphorus Magnesium Direct Bilirubin AST ALT Alkaline Phosphatase Lactate Dehydrogenase Troponin T C-Reactive Protein Total Protein Albumin Prealbumin Triglycerides Cholesterol LDL Cholesterol Direct HDL Cholesterol Urine pH Urine WBC (Auto) Urine Creatinine Urine Total Protein Fluid Total Protein Vancomycin Trough Rheumatoid Factor Complement C4 Miscellaneous Test Crossmatch 12/20/16 12/20/16 12/20/16 00:03 06:17 07:07 WBC RBC Hgb Hct MCV MCH MCHC RDW Plt Count Lymph % (Auto) [place] % (Auto) Lymph # [place] # Baso # Seg Neutrophils % Seg Neuts % (Manual) Lymphocytes % (Manual) Monocytes % (Manual) Eosinophils % (Manual) Basophils % (Manual) Nucleated RBC % Seg Neutrophils # Seg Neutrophils # Man Lymphocytes # (Manual) Monocytes # (Manual) Eosinophils # (Manual) Basophils # (Manual) PT INR Fibrinogen dRVVT Confirm Interp Factor V Activity POC ABG pH POC ABG pCO2 POC ABG pO2 ABG pO2 ABG HCO3 ABG Base Excess ABG Hemoglobin Oxyhemoglobin Sodium Potassium Chloride 97.1 L Carbon Dioxide 20 L BUN 97 H Creatinine 1.8 H Glucose 153 H POC Glucose 152 H 175 H Lactic Acid Calcium Phosphorus Magnesium Direct Bilirubin AST ALT Alkaline Phosphatase Lactate Dehydrogenase Troponin T C-Reactive Protein Total Protein Albumin Prealbumin Triglycerides Cholesterol LDL Cholesterol Direct HDL Cholesterol Urine pH Urine WBC (Auto) Urine Creatinine Urine Total Protein Fluid Total Protein Vancomycin Trough Rheumatoid Factor Complement C4 Miscellaneous Test Crossmatch 12/20/16 12/20/16 12/20/16 12:00 17:42 23:53 WBC RBC Hgb Hct MCV MCH MCHC RDW Plt Count Lymph % (Auto) [place] % (Auto) Lymph # [place] # Baso # Seg Neutrophils % Seg Neuts % (Manual) Lymphocytes % (Manual) Monocytes % (Manual) Eosinophils % (Manual) Basophils % (Manual) Nucleated RBC % Seg Neutrophils # Seg Neutrophils # Man Lymphocytes # (Manual) Monocytes # (Manual) Eosinophils # (Manual) Basophils # (Manual) PT INR Fibrinogen dRVVT Confirm Interp Factor V Activity POC ABG pH POC ABG pCO2 POC ABG pO2 ABG pO2 ABG HCO3 ABG Base Excess ABG Hemoglobin Oxyhemoglobin Sodium Potassium Chloride Carbon Dioxide BUN Creatinine Glucose POC Glucose 141 H 156 H 132 H Lactic Acid Calcium Phosphorus Magnesium Direct Bilirubin AST ALT Alkaline Phosphatase Lactate Dehydrogenase Troponin T C-Reactive Protein Total Protein Albumin Prealbumin Triglycerides Cholesterol LDL Cholesterol Direct HDL Cholesterol Urine pH Urine WBC (Auto) Urine Creatinine Urine Total Protein Fluid Total Protein Vancomycin Trough Rheumatoid Factor Complement C4 Miscellaneous Test Crossmatch 12/21/16 12/21/16 12/21/16 05:49 08:50 12:19 WBC RBC Hgb Hct MCV MCH MCHC RDW Plt Count Lymph % (Auto) [place] % (Auto) Lymph # [place] # Baso # Seg Neutrophils % Seg Neuts % (Manual) Lymphocytes % (Manual) Monocytes % (Manual) Eosinophils % (Manual) Basophils % (Manual) Nucleated RBC % Seg Neutrophils # Seg Neutrophils # Man Lymphocytes # (Manual) Monocytes # (Manual) Eosinophils # (Manual) Basophils # (Manual) PT INR Fibrinogen dRVVT Confirm Interp Factor V Activity POC ABG pH POC ABG pCO2 POC ABG pO2 ABG pO2 ABG HCO3 ABG Base Excess ABG Hemoglobin Oxyhemoglobin Sodium Potassium 5.2 H D Chloride Carbon Dioxide BUN 63 H Creatinine Glucose 122 H POC Glucose 132 H 136 H Lactic Acid Calcium 8.3 L Phosphorus Magnesium Direct Bilirubin AST ALT Alkaline Phosphatase Lactate Dehydrogenase Troponin T C-Reactive Protein Total Protein Albumin Prealbumin Triglycerides Cholesterol LDL Cholesterol Direct HDL Cholesterol Urine pH Urine WBC (Auto) Urine Creatinine Urine Total Protein Fluid Total Protein Vancomycin Trough Rheumatoid Factor Complement C4 Miscellaneous Test Crossmatch 12/21/16 12/21/16 12/22/16 17:22 23:58 05:49 WBC RBC Hgb Hct MCV MCH MCHC RDW Plt Count Lymph % (Auto) [place] % (Auto) Lymph # [place] # Baso # Seg Neutrophils % Seg Neuts % (Manual) Lymphocytes % (Manual) Monocytes % (Manual) Eosinophils % (Manual) Basophils % (Manual) Nucleated RBC % Seg Neutrophils # Seg Neutrophils # Man Lymphocytes # (Manual) Monocytes # (Manual) Eosinophils # (Manual) Basophils # (Manual) PT INR Fibrinogen dRVVT Confirm Interp Factor V Activity POC ABG pH POC ABG pCO2 POC ABG pO2 ABG pO2 ABG HCO3 ABG Base Excess ABG Hemoglobin Oxyhemoglobin Sodium Potassium Chloride Carbon Dioxide BUN Creatinine Glucose POC Glucose 135 H 149 H 140 H Lactic Acid Calcium Phosphorus Magnesium Direct Bilirubin AST ALT Alkaline Phosphatase Lactate Dehydrogenase Troponin T C-Reactive Protein Total Protein Albumin Prealbumin Triglycerides Cholesterol LDL Cholesterol Direct HDL Cholesterol Urine pH Urine WBC (Auto) Urine Creatinine Urine Total Protein Fluid Total Protein Vancomycin Trough Rheumatoid Factor Complement C4 Miscellaneous Test Crossmatch 12/22/16 12/22/16 12/22/16 06:10 11:17 17:31 WBC RBC Hgb Hct MCV MCH MCHC RDW Plt Count Lymph % (Auto) [place] % (Auto) Lymph # [place] # Baso # Seg Neutrophils % Seg Neuts % (Manual) Lymphocytes % (Manual) Monocytes % (Manual) Eosinophils % (Manual) Basophils % (Manual) Nucleated RBC % Seg Neutrophils # Seg Neutrophils # Man Lymphocytes # (Manual) Monocytes # (Manual) Eosinophils # (Manual) Basophils # (Manual) PT INR Fibrinogen dRVVT Confirm Interp Factor V Activity POC ABG pH POC ABG pCO2 POC ABG pO2 ABG pO2 ABG HCO3 ABG Base Excess ABG Hemoglobin Oxyhemoglobin Sodium Potassium Chloride Carbon Dioxide BUN 76 H Creatinine 1.5 H Glucose 241 H POC Glucose 193 H 148 H Lactic Acid Calcium Phosphorus Magnesium Direct Bilirubin AST ALT Alkaline Phosphatase Lactate Dehydrogenase Troponin T C-Reactive Protein Total Protein Albumin Prealbumin Triglycerides Cholesterol LDL Cholesterol Direct HDL Cholesterol Urine pH Urine WBC (Auto) Urine Creatinine Urine Total Protein Fluid Total Protein Vancomycin Trough Rheumatoid Factor Complement C4 Miscellaneous Test Crossmatch 12/22/16 12/23/16 12/23/16 23:58 05:00 05:26 WBC RBC Hgb Hct MCV MCH MCHC RDW Plt Count Lymph % (Auto) [place] % (Auto) Lymph # [place] # Baso # Seg Neutrophils % Seg Neuts % (Manual) Lymphocytes % (Manual) Monocytes % (Manual) Eosinophils % (Manual) Basophils % (Manual) Nucleated RBC % Seg Neutrophils # Seg Neutrophils # Man Lymphocytes # (Manual) Monocytes # (Manual) Eosinophils # (Manual) Basophils # (Manual) PT INR Fibrinogen dRVVT Confirm Interp Factor V Activity POC ABG pH POC ABG pCO2 POC ABG pO2 ABG pO2 ABG HCO3 ABG Base Excess ABG Hemoglobin Oxyhemoglobin Sodium Potassium Chloride Carbon Dioxide BUN 49 H Creatinine Glucose 143 H POC Glucose 165 H 154 H Lactic Acid Calcium 8.2 L Phosphorus Magnesium 1.60 L Direct Bilirubin AST ALT Alkaline Phosphatase Lactate Dehydrogenase Troponin T C-Reactive Protein Total Protein Albumin Prealbumin Triglycerides Cholesterol LDL Cholesterol Direct HDL Cholesterol Urine pH Urine WBC (Auto) Urine Creatinine Urine Total Protein Fluid Total Protein Vancomycin Trough Rheumatoid Factor Complement C4 Miscellaneous Test Crossmatch 12/23/16 12/23/16 12/24/16 12:35 17:01 00:01 WBC RBC Hgb Hct MCV MCH MCHC RDW Plt Count Lymph % (Auto) [place] % (Auto) Lymph # [place] # Baso # Seg Neutrophils % Seg Neuts % (Manual) Lymphocytes % (Manual) Monocytes % (Manual) Eosinophils % (Manual) Basophils % (Manual) Nucleated RBC % Seg Neutrophils # Seg Neutrophils # Man Lymphocytes # (Manual) Monocytes # (Manual) Eosinophils # (Manual) Basophils # (Manual) PT INR Fibrinogen dRVVT Confirm Interp Factor V Activity POC ABG pH POC ABG pCO2 POC ABG pO2 ABG pO2 ABG HCO3 ABG Base Excess ABG Hemoglobin Oxyhemoglobin Sodium Potassium Chloride Carbon Dioxide BUN Creatinine Glucose POC Glucose 164 H 149 H 135 H Lactic Acid Calcium Phosphorus Magnesium Direct Bilirubin AST ALT Alkaline Phosphatase Lactate Dehydrogenase Troponin T C-Reactive Protein Total Protein Albumin Prealbumin Triglycerides Cholesterol LDL Cholesterol Direct HDL Cholesterol Urine pH Urine WBC (Auto) Urine Creatinine Urine Total Protein Fluid Total Protein Vancomycin Trough Rheumatoid Factor Complement C4 Miscellaneous Test Crossmatch 12/24/16 12/24/16 12/24/16 05:41 07:01 11:38 WBC RBC Hgb Hct MCV MCH MCHC RDW Plt Count Lymph % (Auto) [place] % (Auto) Lymph # [place] # Baso # Seg Neutrophils % Seg Neuts % (Manual) Lymphocytes % (Manual) Monocytes % (Manual) Eosinophils % (Manual) Basophils % (Manual) Nucleated RBC % Seg Neutrophils # Seg Neutrophils # Man Lymphocytes # (Manual) Monocytes # (Manual) Eosinophils # (Manual) Basophils # (Manual) PT INR Fibrinogen dRVVT Confirm Interp Factor V Activity POC ABG pH POC ABG pCO2 POC ABG pO2 ABG pO2 ABG HCO3 ABG Base Excess ABG Hemoglobin Oxyhemoglobin Sodium Potassium Chloride Carbon Dioxide BUN 72 H Creatinine 1.3 H Glucose 130 H POC Glucose 132 H 156 H Lactic Acid Calcium 8.2 L Phosphorus Magnesium Direct Bilirubin AST ALT Alkaline Phosphatase Lactate Dehydrogenase Troponin T C-Reactive Protein Total Protein Albumin Prealbumin Triglycerides Cholesterol LDL Cholesterol Direct HDL Cholesterol Urine pH Urine WBC (Auto) Urine Creatinine Urine Total Protein Fluid Total Protein Vancomycin Trough Rheumatoid Factor Complement C4 Miscellaneous Test Crossmatch 12/24/16 12/25/16 12/25/16 17:53 00:23 05:45 WBC RBC Hgb Hct MCV MCH MCHC RDW Plt Count Lymph % (Auto) [place] % (Auto) Lymph # [place] # Baso # Seg Neutrophils % Seg Neuts % (Manual) Lymphocytes % (Manual) Monocytes % (Manual) Eosinophils % (Manual) Basophils % (Manual) Nucleated RBC % Seg Neutrophils # Seg Neutrophils # Man Lymphocytes # (Manual) Monocytes # (Manual) Eosinophils # (Manual) Basophils # (Manual) PT INR Fibrinogen dRVVT Confirm Interp Factor V Activity POC ABG pH POC ABG pCO2 POC ABG pO2 ABG pO2 ABG HCO3 ABG Base Excess ABG Hemoglobin Oxyhemoglobin Sodium 146 H Potassium Chloride Carbon Dioxide BUN 51 H Creatinine Glucose 109 H POC Glucose 169 H 117 H Lactic Acid Calcium Phosphorus Magnesium Direct Bilirubin AST ALT Alkaline Phosphatase Lactate Dehydrogenase Troponin T C-Reactive Protein Total Protein Albumin Prealbumin Triglycerides Cholesterol LDL Cholesterol Direct HDL Cholesterol Urine pH Urine WBC (Auto) Urine Creatinine Urine Total Protein Fluid Total Protein Vancomycin Trough Rheumatoid Factor Complement C4 Miscellaneous Test Crossmatch 12/25/16 12/25/16 12/25/16 06:43 11:29 17:14 WBC RBC Hgb Hct MCV MCH MCHC RDW Plt Count Lymph % (Auto) [place] % (Auto) Lymph # [place] # Baso # Seg Neutrophils % Seg Neuts % (Manual) Lymphocytes % (Manual) Monocytes % (Manual) Eosinophils % (Manual) Basophils % (Manual) Nucleated RBC % Seg Neutrophils # Seg Neutrophils # Man Lymphocytes # (Manual) Monocytes # (Manual) Eosinophils # (Manual) Basophils # (Manual) PT INR Fibrinogen dRVVT Confirm Interp Factor V Activity POC ABG pH POC ABG pCO2 POC ABG pO2 ABG pO2 ABG HCO3 ABG Base Excess ABG Hemoglobin Oxyhemoglobin Sodium Potassium Chloride Carbon Dioxide BUN Creatinine Glucose POC Glucose 117 H 128 H 120 H Lactic Acid Calcium Phosphorus Magnesium Direct Bilirubin AST ALT Alkaline Phosphatase Lactate Dehydrogenase Troponin T C-Reactive Protein Total Protein Albumin Prealbumin Triglycerides Cholesterol LDL Cholesterol Direct HDL Cholesterol Urine pH Urine WBC (Auto) Urine Creatinine Urine Total Protein Fluid Total Protein Vancomycin Trough Rheumatoid Factor Complement C4 Miscellaneous Test Crossmatch 12/25/16 12/26/16 12/26/16 23:54 05:40 05:50 WBC 16.2 H RBC 2.32 L Hgb 6.2 L Hct 20.1 L MCV MCH 27 L MCHC RDW 18.6 H Plt Count Lymph % (Auto) [place] % (Auto) Lymph # [place] # Baso # Seg Neutrophils % Seg Neuts % (Manual) Lymphocytes % (Manual) Monocytes % (Manual) Eosinophils % (Manual) Basophils % (Manual) Nucleated RBC % Seg Neutrophils # Seg Neutrophils # Man Lymphocytes # (Manual) Monocytes # (Manual) Eosinophils # (Manual) Basophils # (Manual) PT INR Fibrinogen dRVVT Confirm Interp Factor V Activity POC ABG pH POC ABG pCO2 POC ABG pO2 ABG pO2 ABG HCO3 ABG Base Excess ABG Hemoglobin Oxyhemoglobin Sodium Potassium Chloride Carbon Dioxide BUN Creatinine Glucose POC Glucose 126 H 132 H Lactic Acid Calcium Phosphorus Magnesium Direct Bilirubin AST ALT Alkaline Phosphatase Lactate Dehydrogenase Troponin T C-Reactive Protein Total Protein Albumin Prealbumin Triglycerides Cholesterol LDL Cholesterol Direct HDL Cholesterol Urine pH Urine WBC (Auto) Urine Creatinine Urine Total Protein Fluid Total Protein Vancomycin Trough Rheumatoid Factor Complement C4 Miscellaneous Test Crossmatch 12/26/16 12/26/16 12/26/16 05:50 12:17 12:33 WBC RBC Hgb Hct MCV MCH MCHC RDW Plt Count Lymph % (Auto) [place] % (Auto) Lymph # [place] # Baso # Seg Neutrophils % Seg Neuts % (Manual) Lymphocytes % (Manual) Monocytes % (Manual) Eosinophils % (Manual) Basophils % (Manual) Nucleated RBC % Seg Neutrophils # Seg Neutrophils # Man Lymphocytes # (Manual) Monocytes # (Manual) Eosinophils # (Manual) Basophils # (Manual) PT INR Fibrinogen dRVVT Confirm Interp Factor V Activity POC ABG pH POC ABG pCO2 POC ABG pO2 ABG pO2 ABG HCO3 ABG Base Excess ABG Hemoglobin Oxyhemoglobin Sodium Potassium Chloride Carbon Dioxide BUN 73 H Creatinine 1.3 H Glucose 113 H POC Glucose 117 H Lactic Acid Calcium Phosphorus Magnesium Direct Bilirubin AST ALT Alkaline Phosphatase Lactate Dehydrogenase Troponin T C-Reactive Protein Total Protein Albumin Prealbumin Triglycerides Cholesterol LDL Cholesterol Direct HDL Cholesterol Urine pH Urine WBC (Auto) Urine Creatinine Urine Total Protein Fluid Total Protein Vancomycin Trough Rheumatoid Factor Complement C4 Miscellaneous Test Crossmatch See Detail 12/26/16 12/26/16 12/27/16 20:00 23:21 05:00 WBC RBC Hgb 8.4 L Hct 26.3 L D MCV MCH MCHC RDW Plt Count Lymph % (Auto) [place] % (Auto) Lymph # [place] # Baso # Seg Neutrophils % Seg Neuts % (Manual) Lymphocytes % (Manual) Monocytes % (Manual) Eosinophils % (Manual) Basophils % (Manual) Nucleated RBC % Seg Neutrophils # Seg Neutrophils # Man Lymphocytes # (Manual) Monocytes # (Manual) Eosinophils # (Manual) Basophils # (Manual) PT INR Fibrinogen dRVVT Confirm Interp Factor V Activity POC ABG pH POC ABG pCO2 POC ABG pO2 ABG pO2 ABG HCO3 ABG Base Excess ABG Hemoglobin Oxyhemoglobin Sodium Potassium Chloride Carbon Dioxide BUN 85 H Creatinine 1.6 H Glucose 118 H POC Glucose 124 H Lactic Acid Calcium Phosphorus 4.80 H Magnesium Direct Bilirubin AST ALT Alkaline Phosphatase Lactate Dehydrogenase Troponin T C-Reactive Protein Total Protein Albumin Prealbumin Triglycerides Cholesterol LDL Cholesterol Direct HDL Cholesterol Urine pH Urine WBC (Auto) Urine Creatinine Urine Total Protein Fluid Total Protein Vancomycin Trough Rheumatoid Factor Complement C4 Miscellaneous Test Crossmatch 12/27/16 12/27/16 12/27/16 05:00 05:35 12:24 WBC RBC Hgb 7.6 L Hct 22.8 L MCV MCH MCHC RDW Plt Count Lymph % (Auto) [place] % (Auto) Lymph # [place] # Baso # Seg Neutrophils % Seg Neuts % (Manual) Lymphocytes % (Manual) Monocytes % (Manual) Eosinophils % (Manual) Basophils % (Manual) Nucleated RBC % Seg Neutrophils # Seg Neutrophils # Man Lymphocytes # (Manual) Monocytes # (Manual) Eosinophils # (Manual) Basophils # (Manual) PT INR Fibrinogen dRVVT Confirm Interp Factor V Activity POC ABG pH POC ABG pCO2 POC ABG pO2 ABG pO2 ABG HCO3 ABG Base Excess ABG Hemoglobin Oxyhemoglobin Sodium Potassium Chloride Carbon Dioxide BUN Creatinine Glucose POC Glucose 115 H 131 H Lactic Acid Calcium Phosphorus Magnesium Direct Bilirubin AST ALT Alkaline Phosphatase Lactate Dehydrogenase Troponin T C-Reactive Protein Total Protein Albumin Prealbumin Triglycerides Cholesterol LDL Cholesterol Direct HDL Cholesterol Urine pH Urine WBC (Auto) Urine Creatinine Urine Total Protein Fluid Total Protein Vancomycin Trough Rheumatoid Factor Complement C4 Miscellaneous Test Crossmatch 12/27/16 12/28/16 12/28/16 17:16 00:18 04:00 WBC RBC Hgb Hct MCV MCH MCHC RDW Plt Count Lymph % (Auto) [place] % (Auto) Lymph # [place] # Baso # Seg Neutrophils % Seg Neuts % (Manual) Lymphocytes % (Manual) Monocytes % (Manual) Eosinophils % (Manual) Basophils % (Manual) Nucleated RBC % Seg Neutrophils # Seg Neutrophils # Man Lymphocytes # (Manual) Monocytes # (Manual) Eosinophils # (Manual) Basophils # (Manual) PT INR Fibrinogen dRVVT Confirm Interp Factor V Activity POC ABG pH POC ABG pCO2 POC ABG pO2 ABG pO2 ABG HCO3 ABG Base Excess ABG Hemoglobin Oxyhemoglobin Sodium Potassium 3.5 L Chloride Carbon Dioxide BUN 57 H Creatinine Glucose 118 H POC Glucose 136 H 120 H Lactic Acid Calcium 8.3 L Phosphorus Magnesium Direct Bilirubin AST ALT Alkaline Phosphatase Lactate Dehydrogenase Troponin T C-Reactive Protein Total Protein Albumin Prealbumin Triglycerides Cholesterol LDL Cholesterol Direct HDL Cholesterol Urine pH Urine WBC (Auto) Urine Creatinine Urine Total Protein Fluid Total Protein Vancomycin Trough Rheumatoid Factor Complement C4 Miscellaneous Test Crossmatch 12/28/16 12/28/16 12/28/16 04:00 05:11 08:30 WBC 17.0 H RBC 2.58 L Hgb 7.1 L Hct 22.0 L MCV MCH MCHC RDW 17.6 H Plt Count Lymph % (Auto) 12.[address] [place] % (Auto) Lymph # [place] # 1.1 H Baso # Seg Neutrophils % 80.5 H Seg Neuts % (Manual) Lymphocytes % (Manual) Monocytes % (Manual) Eosinophils % (Manual) Basophils % (Manual) Nucleated RBC % Seg Neutrophils # 13.7 H Seg Neutrophils # Man Lymphocytes # (Manual) Monocytes # (Manual) Eosinophils # (Manual) Basophils # (Manual) PT 16.1 H INR 1.23 H Fibrinogen dRVVT Confirm Interp Factor V Activity POC ABG pH POC ABG pCO2 POC ABG pO2 ABG pO2 ABG HCO3 ABG Base Excess ABG Hemoglobin Oxyhemoglobin Sodium Potassium Chloride Carbon Dioxide BUN Creatinine Glucose POC Glucose 122 H Lactic Acid Calcium Phosphorus Magnesium Direct Bilirubin AST ALT Alkaline Phosphatase Lactate Dehydrogenase Troponin T C-Reactive Protein Total Protein Albumin Prealbumin Triglycerides Cholesterol LDL Cholesterol Direct HDL Cholesterol Urine pH Urine WBC (Auto) Urine Creatinine Urine Total Protein Fluid Total Protein Vancomycin Trough Rheumatoid Factor Complement C4 Miscellaneous Test Crossmatch 12/28/16 12/28/16 12/28/16 12:27 16:32 23:46 WBC RBC Hgb Hct MCV MCH MCHC RDW Plt Count Lymph % (Auto) [place] % (Auto) Lymph # [place] # Baso # Seg Neutrophils % Seg Neuts % (Manual) Lymphocytes % (Manual) Monocytes % (Manual) Eosinophils % (Manual) Basophils % (Manual) Nucleated RBC % Seg Neutrophils # Seg Neutrophils # Man Lymphocytes # (Manual) Monocytes # (Manual) Eosinophils # (Manual) Basophils # (Manual) PT INR Fibrinogen dRVVT Confirm Interp Factor V Activity POC ABG pH POC ABG pCO2 POC ABG pO2 ABG pO2 ABG HCO3 ABG Base Excess ABG Hemoglobin Oxyhemoglobin Sodium Potassium Chloride Carbon Dioxide BUN Creatinine Glucose POC Glucose 127 H 117 H 108 H Lactic Acid Calcium Phosphorus Magnesium Direct Bilirubin AST ALT Alkaline Phosphatase Lactate Dehydrogenase Troponin T C-Reactive Protein Total Protein Albumin Prealbumin Triglycerides Cholesterol LDL Cholesterol Direct HDL Cholesterol Urine pH Urine WBC (Auto) Urine Creatinine Urine Total Protein Fluid Total Protein Vancomycin Trough Rheumatoid Factor Complement C4 Miscellaneous Test Crossmatch 12/29/16 12/29/16 12/29/16 05:15 05:15 05:32 WBC RBC Hgb Hct MCV MCH MCHC RDW Plt Count Lymph % (Auto) [place] % (Auto) Lymph # [place] # Baso # Seg Neutrophils % Seg Neuts % (Manual) Lymphocytes % (Manual) Monocytes % (Manual) Eosinophils % (Manual) Basophils % (Manual) Nucleated RBC % Seg Neutrophils # Seg Neutrophils # Man Lymphocytes # (Manual) Monocytes # (Manual) Eosinophils # (Manual) Basophils # (Manual) PT INR Fibrinogen dRVVT Confirm Interp Factor V Activity POC ABG pH POC ABG pCO2 POC ABG pO2 ABG pO2 ABG HCO3 ABG Base Excess ABG Hemoglobin Oxyhemoglobin Sodium Potassium Chloride Carbon Dioxide BUN 74 H Creatinine 1.6 H Glucose 111 H POC Glucose 123 H Lactic Acid Calcium Phosphorus Magnesium Direct Bilirubin AST ALT Alkaline Phosphatase Lactate Dehydrogenase Troponin T C-Reactive Protein Total Protein Albumin Prealbumin 0.110 L Triglycerides Cholesterol LDL Cholesterol Direct HDL Cholesterol Urine pH Urine WBC (Auto) Urine Creatinine Urine Total Protein Fluid Total Protein Vancomycin Trough Rheumatoid Factor Complement C4 Miscellaneous Test Crossmatch 12/29/16 12/29/16 12/29/16 11:43 13:45 14:00 WBC 13.8 H RBC 2.26 L Hgb 6.3 L Hct 20.4 L MCV MCH MCHC RDW 18.3 H Plt Count Lymph % (Auto) [place] % (Auto) Lymph # [place] # 0.9 H Baso # Seg Neutrophils % 78.6 H Seg Neuts % (Manual) Lymphocytes % (Manual) Monocytes % (Manual) Eosinophils % (Manual) Basophils % (Manual) Nucleated RBC % Seg Neutrophils # 10.8 H Seg Neutrophils # Man Lymphocytes # (Manual) Monocytes # (Manual) Eosinophils # (Manual) Basophils # (Manual) PT INR Fibrinogen dRVVT Confirm Interp Factor V Activity POC ABG pH POC ABG pCO2 POC ABG pO2 ABG pO2 ABG HCO3 ABG Base Excess ABG Hemoglobin Oxyhemoglobin Sodium Potassium Chloride Carbon Dioxide BUN Creatinine Glucose POC Glucose 133 H Lactic Acid Calcium Phosphorus Magnesium Direct Bilirubin AST ALT Alkaline Phosphatase Lactate Dehydrogenase Troponin T C-Reactive Protein Total Protein Albumin Prealbumin Triglycerides Cholesterol LDL Cholesterol Direct HDL Cholesterol Urine pH Urine WBC (Auto) Urine Creatinine Urine Total Protein Fluid Total Protein Vancomycin Trough Rheumatoid Factor Complement C4 Miscellaneous Test Crossmatch See Detail 12/29/16 12/29/16 12/29/16 17:03 23:15 23:22 WBC RBC Hgb 7.3 L Hct 22.3 L MCV MCH MCHC RDW Plt Count Lymph % (Auto) [place] % (Auto) Lymph # [place] # Baso # Seg Neutrophils % Seg Neuts % (Manual) Lymphocytes % (Manual) Monocytes % (Manual) Eosinophils % (Manual) Basophils % (Manual) Nucleated RBC % Seg Neutrophils # Seg Neutrophils # Man Lymphocytes # (Manual) Monocytes # (Manual) Eosinophils # (Manual) Basophils # (Manual) PT INR Fibrinogen dRVVT Confirm Interp Factor V Activity POC ABG pH POC ABG pCO2 POC ABG pO2 ABG pO2 ABG HCO3 ABG Base Excess ABG Hemoglobin Oxyhemoglobin Sodium Potassium Chloride Carbon Dioxide BUN Creatinine Glucose POC Glucose 139 H 120 H Lactic Acid Calcium Phosphorus Magnesium Direct Bilirubin AST ALT Alkaline Phosphatase Lactate Dehydrogenase Troponin T C-Reactive Protein Total Protein Albumin Prealbumin Triglycerides Cholesterol LDL Cholesterol Direct HDL Cholesterol Urine pH Urine WBC (Auto) Urine Creatinine Urine Total Protein Fluid Total Protein Vancomycin Trough Rheumatoid Factor Complement C4 Miscellaneous Test Crossmatch 12/30/16 12/30/16 12/30/16 04:20 04:20 05:43 WBC 15.6 H RBC 2.81 L Hgb 8.0 L Hct 24.0 L MCV MCH MCHC RDW 16.9 H Plt Count Lymph % (Auto) [place] % (Auto) Lymph # [place] # 1.0 H Baso # Seg Neutrophils % 76.2 H Seg Neuts % (Manual) Lymphocytes % (Manual) Monocytes % (Manual) Eosinophils % (Manual) Basophils % (Manual) Nucleated RBC % Seg Neutrophils # 11.9 H Seg Neutrophils # Man Lymphocytes # (Manual) Monocytes # (Manual) Eosinophils # (Manual) Basophils # (Manual) PT INR Fibrinogen dRVVT Confirm Interp Factor V Activity POC ABG pH POC ABG pCO2 POC ABG pO2 ABG pO2 ABG HCO3 ABG Base Excess ABG Hemoglobin Oxyhemoglobin Sodium Potassium Chloride Carbon Dioxide BUN 87 H Creatinine 1.8 H Glucose 119 H POC Glucose 115 H Lactic Acid Calcium Phosphorus Magnesium Direct Bilirubin AST ALT Alkaline Phosphatase Lactate Dehydrogenase Troponin T C-Reactive Protein Total Protein Albumin Prealbumin Triglycerides Cholesterol LDL Cholesterol Direct HDL Cholesterol Urine pH Urine WBC (Auto) Urine Creatinine Urine Total Protein Fluid Total Protein Vancomycin Trough Rheumatoid Factor Complement C4 Miscellaneous Test Crossmatch 12/30/16 12/30/16 12/31/16 17:27 23:21 04:00 WBC RBC Hgb Hct MCV MCH MCHC RDW Plt Count Lymph % (Auto) [place] % (Auto) Lymph # [place] # Baso # Seg Neutrophils % Seg Neuts % (Manual) Lymphocytes % (Manual) Monocytes % (Manual) Eosinophils % (Manual) Basophils % (Manual) Nucleated RBC % Seg Neutrophils # Seg Neutrophils # Man Lymphocytes # (Manual) Monocytes # (Manual) Eosinophils # (Manual) Basophils # (Manual) PT INR Fibrinogen dRVVT Confirm Interp Factor V Activity POC ABG pH POC ABG pCO2 POC ABG pO2 ABG pO2 ABG HCO3 ABG Base Excess ABG Hemoglobin Oxyhemoglobin Sodium Potassium Chloride Carbon Dioxide BUN 59 H Creatinine Glucose 298 H POC Glucose 144 H 125 H Lactic Acid Calcium Phosphorus Magnesium Direct Bilirubin AST ALT Alkaline Phosphatase Lactate Dehydrogenase Troponin T C-Reactive Protein Total Protein Albumin Prealbumin Triglycerides Cholesterol LDL Cholesterol Direct HDL Cholesterol Urine pH Urine WBC (Auto) Urine Creatinine Urine Total Protein Fluid Total Protein Vancomycin Trough Rheumatoid Factor Complement C4 Miscellaneous Test Crossmatch 12/31/16 12/31/16 12/31/16 05:11 12:18 18:17 WBC RBC Hgb Hct MCV MCH MCHC RDW Plt Count Lymph % (Auto) [place] % (Auto) Lymph # [place] # Baso # Seg Neutrophils % Seg Neuts % (Manual) Lymphocytes % (Manual) Monocytes % (Manual) Eosinophils % (Manual) Basophils % (Manual) Nucleated RBC % Seg Neutrophils # Seg Neutrophils # Man Lymphocytes # (Manual) Monocytes # (Manual) Eosinophils # (Manual) Basophils # (Manual) PT INR Fibrinogen dRVVT Confirm Interp Factor V Activity POC ABG pH POC ABG pCO2 POC ABG pO2 ABG pO2 ABG HCO3 ABG Base Excess ABG Hemoglobin Oxyhemoglobin Sodium Potassium Chloride Carbon Dioxide BUN Creatinine Glucose POC Glucose 167 H 125 H 133 H Lactic Acid Calcium Phosphorus Magnesium Direct Bilirubin AST ALT Alkaline Phosphatase Lactate Dehydrogenase Troponin T C-Reactive Protein Total Protein Albumin Prealbumin Triglycerides Cholesterol LDL Cholesterol Direct HDL Cholesterol Urine pH Urine WBC (Auto) Urine Creatinine Urine Total Protein Fluid Total Protein Vancomycin Trough Rheumatoid Factor Complement C4 Miscellaneous Test Crossmatch 12/31/16 01/01/17 01/01/17 23:55 05:00 05:12 WBC RBC Hgb Hct MCV MCH MCHC RDW Plt Count Lymph % (Auto) [place] % (Auto) Lymph # [place] # Baso # Seg Neutrophils % Seg Neuts % (Manual) Lymphocytes % (Manual) Monocytes % (Manual) Eosinophils % (Manual) Basophils % (Manual) Nucleated RBC % Seg Neutrophils # Seg Neutrophils # Man Lymphocytes # (Manual) Monocytes # (Manual) Eosinophils # (Manual) Basophils # (Manual) PT INR Fibrinogen dRVVT Confirm Interp Factor V Activity POC ABG pH POC ABG pCO2 POC ABG pO2 ABG pO2 ABG HCO3 ABG Base Excess ABG Hemoglobin Oxyhemoglobin Sodium Potassium Chloride Carbon Dioxide BUN 76 H Creatinine 1.5 H Glucose 109 H POC Glucose 129 H 129 H Lactic Acid Calcium Phosphorus Magnesium Direct Bilirubin AST ALT Alkaline Phosphatase 536 H Lactate Dehydrogenase Troponin T C-Reactive Protein Total Protein Albumin 1.5 L Prealbumin Triglycerides Cholesterol LDL Cholesterol Direct HDL Cholesterol Urine pH Urine WBC (Auto) Urine Creatinine Urine Total Protein Fluid Total Protein Vancomycin Trough Rheumatoid Factor Complement C4 Miscellaneous Test Crossmatch 01/01/17 01/01/17 01/01/17 12:25 17:01 23:32 WBC RBC Hgb Hct MCV MCH MCHC RDW Plt Count Lymph % (Auto) [place] % (Auto) Lymph # [place] # Baso # Seg Neutrophils % Seg Neuts % (Manual) Lymphocytes % (Manual) Monocytes % (Manual) Eosinophils % (Manual) Basophils % (Manual) Nucleated RBC % Seg Neutrophils # Seg Neutrophils # Man Lymphocytes # (Manual) Monocytes # (Manual) Eosinophils # (Manual) Basophils # (Manual) PT INR Fibrinogen dRVVT Confirm Interp Factor V Activity POC ABG pH POC ABG pCO2 POC ABG pO2 ABG pO2 ABG HCO3 ABG Base Excess ABG Hemoglobin Oxyhemoglobin Sodium Potassium Chloride Carbon Dioxide BUN Creatinine Glucose POC Glucose 140 H 142 H 112 H Lactic Acid Calcium Phosphorus Magnesium Direct Bilirubin AST ALT Alkaline Phosphatase Lactate Dehydrogenase Troponin T C-Reactive Protein Total Protein Albumin Prealbumin Triglycerides Cholesterol LDL Cholesterol Direct HDL Cholesterol Urine pH Urine WBC (Auto) Urine Creatinine Urine Total Protein Fluid Total Protein Vancomycin Trough Rheumatoid Factor Complement C4 Miscellaneous Test Crossmatch 01/02/17 01/02/17 01/02/17 04:56 06:00 11:37 WBC RBC Hgb Hct MCV MCH MCHC RDW Plt Count Lymph % (Auto) [place] % (Auto) Lymph # [place] # Baso # Seg Neutrophils % Seg Neuts % (Manual) Lymphocytes % (Manual) Monocytes % (Manual) Eosinophils % (Manual) Basophils % (Manual) Nucleated RBC % Seg Neutrophils # Seg Neutrophils # Man Lymphocytes # (Manual) Monocytes # (Manual) Eosinophils # (Manual) Basophils # (Manual) PT INR Fibrinogen dRVVT Confirm Interp Factor V Activity POC ABG pH POC ABG pCO2 POC ABG pO2 ABG pO2 ABG HCO3 ABG Base Excess ABG Hemoglobin Oxyhemoglobin Sodium Potassium Chloride Carbon Dioxide BUN 88 H Creatinine 1.7 H Glucose 113 H POC Glucose 136 H 200 H Lactic Acid Calcium Phosphorus Magnesium Direct Bilirubin AST ALT Alkaline Phosphatase Lactate Dehydrogenase Troponin T C-Reactive Protein Total Protein Albumin Prealbumin Triglycerides Cholesterol LDL Cholesterol Direct HDL Cholesterol Urine pH Urine WBC (Auto) Urine Creatinine Urine Total Protein Fluid Total Protein Vancomycin Trough Rheumatoid Factor Complement C4 Miscellaneous Test Crossmatch 01/02/17 01/02/17 01/03/17 17:42 22:52 04:54 WBC RBC Hgb Hct MCV MCH MCHC RDW Plt Count Lymph % (Auto) [place] % (Auto) Lymph # [place] # Baso # Seg Neutrophils % Seg Neuts % (Manual) Lymphocytes % (Manual) Monocytes % (Manual) Eosinophils % (Manual) Basophils % (Manual) Nucleated RBC % Seg Neutrophils # Seg Neutrophils # Man Lymphocytes # (Manual) Monocytes # (Manual) Eosinophils # (Manual) Basophils # (Manual) PT INR Fibrinogen dRVVT Confirm Interp Factor V Activity POC ABG pH POC ABG pCO2 POC ABG pO2 ABG pO2 ABG HCO3 ABG Base Excess ABG Hemoglobin Oxyhemoglobin Sodium Potassium Chloride Carbon Dioxide BUN Creatinine Glucose POC Glucose 112 H 133 H 111 H Lactic Acid Calcium Phosphorus Magnesium Direct Bilirubin AST ALT Alkaline Phosphatase Lactate Dehydrogenase Troponin T C-Reactive Protein Total Protein Albumin Prealbumin Triglycerides Cholesterol LDL Cholesterol Direct HDL Cholesterol Urine pH Urine WBC (Auto) Urine Creatinine Urine Total Protein Fluid Total Protein Vancomycin Trough Rheumatoid Factor Complement C4 Miscellaneous Test Crossmatch 01/03/17 01/03/17 01/03/17 05:00 05:00 14:02 WBC 11.2 H RBC 2.56 L Hgb 7.2 L Hct 22.3 L MCV MCH MCHC RDW 17.3 H Plt Count Lymph % (Auto) [place] % (Auto) 10.0 H Lymph # [place] # 1.1 H Baso # Seg Neutrophils % 70.5 H Seg Neuts % (Manual) Lymphocytes % (Manual) Monocytes % (Manual) Eosinophils % (Manual) Basophils % (Manual) Nucleated RBC % Seg Neutrophils # 7.9 H Seg Neutrophils # Man Lymphocytes # (Manual) Monocytes # (Manual) Eosinophils # (Manual) Basophils # (Manual) PT INR Fibrinogen dRVVT Confirm Interp Factor V Activity POC ABG pH POC ABG pCO2 POC ABG pO2 ABG pO2 ABG HCO3 ABG Base Excess ABG Hemoglobin Oxyhemoglobin Sodium Potassium Chloride Carbon Dioxide BUN 60 H Creatinine 1.3 H Glucose 110 H POC Glucose 119 H Lactic Acid Calcium Phosphorus Magnesium Direct Bilirubin AST ALT Alkaline Phosphatase Lactate Dehydrogenase Troponin T C-Reactive Protein Total Protein Albumin Prealbumin Triglycerides Cholesterol LDL Cholesterol Direct HDL Cholesterol Urine pH Urine WBC (Auto) Urine Creatinine Urine Total Protein Fluid Total Protein Vancomycin Trough Rheumatoid Factor Complement C4 Miscellaneous Test Crossmatch 01/03/17 01/03/17 01/04/17 18:13 23:40 05:57 WBC RBC Hgb Hct MCV MCH MCHC RDW Plt Count Lymph % (Auto) [place] % (Auto) Lymph # [place] # Baso # Seg Neutrophils % Seg Neuts % (Manual) Lymphocytes % (Manual) Monocytes % (Manual) Eosinophils % (Manual) Basophils % (Manual) Nucleated RBC % Seg Neutrophils # Seg Neutrophils # Man Lymphocytes # (Manual) Monocytes # (Manual) Eosinophils # (Manual) Basophils # (Manual) PT INR Fibrinogen dRVVT Confirm Interp Factor V Activity POC ABG pH POC ABG pCO2 POC ABG pO2 ABG pO2 ABG HCO3 ABG Base Excess ABG Hemoglobin Oxyhemoglobin Sodium Potassium Chloride Carbon Dioxide BUN Creatinine Glucose POC Glucose 107 H 129 H 111 H Lactic Acid Calcium Phosphorus Magnesium Direct Bilirubin AST ALT Alkaline Phosphatase Lactate Dehydrogenase Troponin T C-Reactive Protein Total Protein Albumin Prealbumin Triglycerides Cholesterol LDL Cholesterol Direct HDL Cholesterol Urine pH Urine WBC (Auto) Urine Creatinine Urine Total Protein Fluid Total Protein Vancomycin Trough Rheumatoid Factor Complement C4 Miscellaneous Test Crossmatch 01/04/17 01/04/17 01/04/17 12:46 15:27 17:11 WBC RBC Hgb Hct MCV MCH MCHC RDW Plt Count Lymph % (Auto) [place] % (Auto) Lymph # [place] # Baso # Seg Neutrophils % Seg Neuts % (Manual) Lymphocytes % (Manual) Monocytes % (Manual) Eosinophils % (Manual) Basophils % (Manual) Nucleated RBC % Seg Neutrophils # Seg Neutrophils # Man Lymphocytes # (Manual) Monocytes # (Manual) Eosinophils # (Manual) Basophils # (Manual) PT INR Fibrinogen dRVVT Confirm Interp Factor V Activity POC ABG pH POC ABG pCO2 POC ABG pO2 ABG pO2 ABG HCO3 ABG Base Excess ABG Hemoglobin Oxyhemoglobin Sodium Potassium Chloride Carbon Dioxide BUN 43 H Creatinine Glucose 124 H POC Glucose 159 H 125 H Lactic Acid Calcium 8.0 L Phosphorus 2.10 L Magnesium Direct Bilirubin AST ALT Alkaline Phosphatase Lactate Dehydrogenase Troponin T C-Reactive Protein Total Protein Albumin Prealbumin Triglycerides Cholesterol LDL Cholesterol Direct HDL Cholesterol Urine pH Urine WBC (Auto) Urine Creatinine Urine Total Protein Fluid Total Protein Vancomycin Trough Rheumatoid Factor Complement C4 Miscellaneous Test Crossmatch 01/04/17 01/05/17 01/05/17 23:31 04:00 05:46 WBC RBC Hgb Hct MCV MCH MCHC RDW Plt Count Lymph % (Auto) [place] % (Auto) Lymph # [place] # Baso # Seg Neutrophils % Seg Neuts % (Manual) Lymphocytes % (Manual) Monocytes % (Manual) Eosinophils % (Manual) Basophils % (Manual) Nucleated RBC % Seg Neutrophils # Seg Neutrophils # Man Lymphocytes # (Manual) Monocytes # (Manual) Eosinophils # (Manual) Basophils # (Manual) PT INR Fibrinogen dRVVT Confirm Interp Factor V Activity POC ABG pH POC ABG pCO2 POC ABG pO2 ABG pO2 ABG HCO3 ABG Base Excess ABG Hemoglobin Oxyhemoglobin Sodium Potassium Chloride Carbon Dioxide BUN 52 H Creatinine 1.3 H Glucose 113 H POC Glucose 123 H 118 H Lactic Acid Calcium Phosphorus 2.40 L Magnesium Direct Bilirubin AST ALT Alkaline Phosphatase Lactate Dehydrogenase Troponin T C-Reactive Protein Total Protein Albumin Prealbumin Triglycerides Cholesterol LDL Cholesterol Direct HDL Cholesterol Urine pH Urine WBC (Auto) Urine Creatinine Urine Total Protein Fluid Total Protein Vancomycin Trough Rheumatoid Factor Complement C4 Miscellaneous Test Crossmatch 01/05/17 01/05/17 01/05/17 11:41 17:48 23:27 WBC RBC Hgb Hct MCV MCH MCHC RDW Plt Count Lymph % (Auto) [place] % (Auto) Lymph # [place] # Baso # Seg Neutrophils % Seg Neuts % (Manual) Lymphocytes % (Manual) Monocytes % (Manual) Eosinophils % (Manual) Basophils % (Manual) Nucleated RBC % Seg Neutrophils # Seg Neutrophils # Man Lymphocytes # (Manual) Monocytes # (Manual) Eosinophils # (Manual) Basophils # (Manual) PT INR Fibrinogen dRVVT Confirm Interp Factor V Activity POC ABG pH POC ABG pCO2 POC ABG pO2 ABG pO2 ABG HCO3 ABG Base Excess ABG Hemoglobin Oxyhemoglobin Sodium Potassium Chloride Carbon Dioxide BUN Creatinine Glucose POC Glucose 163 H 142 H 155 H Lactic Acid Calcium Phosphorus Magnesium Direct Bilirubin AST ALT Alkaline Phosphatase Lactate Dehydrogenase Troponin T C-Reactive Protein Total Protein Albumin Prealbumin Triglycerides Cholesterol LDL Cholesterol Direct HDL Cholesterol Urine pH Urine WBC (Auto) Urine Creatinine Urine Total Protein Fluid Total Protein Vancomycin Trough Rheumatoid Factor Complement C4 Miscellaneous Test Crossmatch 01/06/17 01/06/17 01/06/17 05:20 07:35 11:18 WBC RBC Hgb Hct MCV MCH MCHC RDW Plt Count Lymph % (Auto) [place] % (Auto) Lymph # [place] # Baso # Seg Neutrophils % Seg Neuts % (Manual) Lymphocytes % (Manual) Monocytes % (Manual) Eosinophils % (Manual) Basophils % (Manual) Nucleated RBC % Seg Neutrophils # Seg Neutrophils # Man Lymphocytes # (Manual) Monocytes # (Manual) Eosinophils # (Manual) Basophils # (Manual) PT INR Fibrinogen dRVVT Confirm Interp Factor V Activity POC ABG pH POC ABG pCO2 POC ABG pO2 ABG pO2 ABG HCO3 ABG Base Excess ABG Hemoglobin Oxyhemoglobin Sodium Potassium Chloride Carbon Dioxide BUN 74 H Creatinine 1.6 H Glucose 135 H POC Glucose 108 H 149 H Lactic Acid Calcium Phosphorus Magnesium Direct Bilirubin AST ALT Alkaline Phosphatase Lactate Dehydrogenase Troponin T C-Reactive Protein Total Protein Albumin Prealbumin Triglycerides Cholesterol LDL Cholesterol Direct HDL Cholesterol Urine pH Urine WBC (Auto) Urine Creatinine Urine Total Protein Fluid Total Protein Vancomycin Trough Rheumatoid Factor Complement C4 Miscellaneous Test Crossmatch 01/06/17 01/07/17 01/07/17 17:17 00:23 05:31 WBC RBC Hgb Hct MCV MCH MCHC RDW Plt Count Lymph % (Auto) [place] % (Auto) Lymph # [place] # Baso # Seg Neutrophils % Seg Neuts % (Manual) Lymphocytes % (Manual) Monocytes % (Manual) Eosinophils % (Manual) Basophils % (Manual) Nucleated RBC % Seg Neutrophils # Seg Neutrophils # Man Lymphocytes # (Manual) Monocytes # (Manual) Eosinophils # (Manual) Basophils # (Manual) PT INR Fibrinogen dRVVT Confirm Interp Factor V Activity POC ABG pH POC ABG pCO2 POC ABG pO2 ABG pO2 ABG HCO3 ABG Base Excess ABG Hemoglobin Oxyhemoglobin Sodium Potassium Chloride Carbon Dioxide BUN Creatinine Glucose POC Glucose 146 H 165 H 153 H Lactic Acid Calcium Phosphorus Magnesium Direct Bilirubin AST ALT Alkaline Phosphatase Lactate Dehydrogenase Troponin T C-Reactive Protein Total Protein Albumin Prealbumin Triglycerides Cholesterol LDL Cholesterol Direct HDL Cholesterol Urine pH Urine WBC (Auto) Urine Creatinine Urine Total Protein Fluid Total Protein Vancomycin Trough Rheumatoid Factor Complement C4 Miscellaneous Test Crossmatch 01/07/17 01/07/17 01/07/17 06:00 11:39 17:11 WBC RBC Hgb Hct MCV MCH MCHC RDW Plt Count Lymph % (Auto) [place] % (Auto) Lymph # [place] # Baso # Seg Neutrophils % Seg Neuts % (Manual) Lymphocytes % (Manual) Monocytes % (Manual) Eosinophils % (Manual) Basophils % (Manual) Nucleated RBC % Seg Neutrophils # Seg Neutrophils # Man Lymphocytes # (Manual) Monocytes # (Manual) Eosinophils # (Manual) Basophils # (Manual) PT INR Fibrinogen dRVVT Confirm Interp Factor V Activity POC ABG pH POC ABG pCO2 POC ABG pO2 ABG pO2 ABG HCO3 ABG Base Excess ABG Hemoglobin Oxyhemoglobin Sodium Potassium Chloride Carbon Dioxide BUN 42 H Creatinine Glucose 175 H POC Glucose 163 H 163 H Lactic Acid Calcium Phosphorus 2.40 L D Magnesium Direct Bilirubin AST ALT Alkaline Phosphatase Lactate Dehydrogenase Troponin T C-Reactive Protein Total Protein Albumin Prealbumin Triglycerides Cholesterol LDL Cholesterol Direct HDL Cholesterol Urine pH Urine WBC (Auto) Urine Creatinine Urine Total Protein Fluid Total Protein Vancomycin Trough Rheumatoid Factor Complement C4 Miscellaneous Test Crossmatch 01/07/17 01/08/17 01/08/17 23:40 05:00 05:00 WBC 27.4 H RBC 2.27 L Hgb 6.1 L Hct 20.4 L MCV MCH 27 L MCHC RDW 17.8 H Plt Count Lymph % (Auto) [place] % (Auto) Lymph # [place] # Baso # Seg Neutrophils % Seg Neuts % (Manual) Lymphocytes % (Manual) Monocytes % (Manual) Eosinophils % (Manual) Basophils % (Manual) Nucleated RBC % Seg Neutrophils # Seg Neutrophils # Man Lymphocytes # (Manual) Monocytes # (Manual) Eosinophils # (Manual) Basophils # (Manual) PT INR Fibrinogen dRVVT Confirm Interp Factor V Activity POC ABG pH POC ABG pCO2 POC ABG pO2 ABG pO2 ABG HCO3 ABG Base Excess ABG Hemoglobin Oxyhemoglobin Sodium Potassium Chloride Carbon Dioxide 16 L D BUN 62 H Creatinine 1.6 H D Glucose 103 H POC Glucose 135 H Lactic Acid Calcium Phosphorus Magnesium Direct Bilirubin AST ALT Alkaline Phosphatase Lactate Dehydrogenase Troponin T C-Reactive Protein Total Protein Albumin Prealbumin Triglycerides Cholesterol LDL Cholesterol Direct HDL Cholesterol Urine pH Urine WBC (Auto) Urine Creatinine Urine Total Protein Fluid Total Protein Vancomycin Trough Rheumatoid Factor Complement C4 Miscellaneous Test Crossmatch 01/08/17 01/08/17 01/08/17 05:25 10:37 10:37 WBC RBC Hgb Hct MCV MCH MCHC RDW Plt Count Lymph % (Auto) [place] % (Auto) Lymph # [place] # Baso # Seg Neutrophils % Seg Neuts % (Manual) Lymphocytes % (Manual) Monocytes % (Manual) Eosinophils % (Manual) Basophils % (Manual) Nucleated RBC % Seg Neutrophils # Seg Neutrophils # Man Lymphocytes # (Manual) Monocytes # (Manual) Eosinophils # (Manual) Basophils # (Manual) PT INR Fibrinogen dRVVT Confirm Interp Factor V Activity POC ABG pH POC ABG pCO2 POC ABG pO2 ABG pO2 ABG HCO3 ABG Base Excess ABG Hemoglobin Oxyhemoglobin Sodium Potassium Chloride Carbon Dioxide BUN Creatinine Glucose POC Glucose 106 H Lactic Acid Calcium Phosphorus Magnesium Direct Bilirubin AST ALT Alkaline Phosphatase Lactate Dehydrogenase Troponin T C-Reactive Protein 24.40 H Total Protein Albumin Prealbumin Triglycerides Cholesterol LDL Cholesterol Direct HDL Cholesterol Urine pH Urine WBC (Auto) Urine Creatinine Urine Total Protein Fluid Total Protein Vancomycin Trough Rheumatoid Factor Complement C4 Miscellaneous Test Crossmatch See Detail 01/08/17 01/08/17 01/08/17 10:37 11:33 15:15 WBC RBC Hgb Hct MCV MCH MCHC RDW Plt Count Lymph % (Auto) [place] % (Auto) Lymph # [place] # [place] # Seg Neutrophils % Seg Neuts % (Manual) Lymphocytes % (Manual) Monocytes % (Manual) Eosinophils % (Manual) Basophils % (Manual) Nucleated RBC % Seg Neutrophils # Seg Neutrophils # Man Lymphocytes # (Manual) Monocytes # (Manual) Eosinophils # (Manual) Basophils # (Manual) PT INR Fibrinogen dRVVT Confirm Interp Factor V Activity POC ABG pH POC ABG pCO2 POC ABG pO2 ABG pO2 ABG HCO3 ABG Base Excess ABG Hemoglobin Oxyhemoglobin Sodium Potassium Chloride Carbon Dioxide BUN Creatinine Glucose POC Glucose 157 H Lactic Acid 9.70 H* 9.10 H* Calcium Phosphorus Magnesium Direct Bilirubin AST ALT Alkaline Phosphatase Lactate Dehydrogenase Troponin T C-Reactive Protein Total Protein Albumin Prealbumin Triglycerides Cholesterol LDL Cholesterol Direct HDL Cholesterol Urine pH Urine WBC (Auto) Urine Creatinine Urine Total Protein Fluid Total Protein Vancomycin Trough Rheumatoid Factor Complement C4 Miscellaneous Test Crossmatch 01/08/17 01/08/17 01/09/17 17:19 23:12 04:40 WBC RBC Hgb Hct MCV MCH MCHC RDW Plt Count Lymph % (Auto) [place] % (Auto) Lymph # [place] # Baso # Seg Neutrophils % Seg Neuts % (Manual) Lymphocytes % (Manual) Monocytes % (Manual) Eosinophils % (Manual) Basophils % (Manual) Nucleated RBC % Seg Neutrophils # Seg Neutrophils # Man Lymphocytes # (Manual) Monocytes # (Manual) Eosinophils # (Manual) Basophils # (Manual) PT INR Fibrinogen dRVVT Confirm Interp Factor V Activity POC ABG pH POC ABG pCO2 POC ABG pO2 ABG pO2 ABG HCO3 ABG Base Excess ABG Hemoglobin Oxyhemoglobin Sodium 147 H Potassium Chloride Carbon Dioxide BUN 82 H Creatinine 1.8 H Glucose 137 H POC Glucose 164 H 157 H Lactic Acid Calcium Phosphorus Magnesium Direct Bilirubin AST ALT Alkaline Phosphatase Lactate Dehydrogenase Troponin T C-Reactive Protein Total Protein Albumin Prealbumin Triglycerides Cholesterol LDL Cholesterol Direct HDL Cholesterol Urine pH Urine WBC (Auto) Urine Creatinine Urine Total Protein Fluid Total Protein Vancomycin Trough Rheumatoid Factor Complement C4 Miscellaneous Test Crossmatch 01/09/17 05:42 WBC RBC Hgb Hct MCV MCH MCHC RDW Plt Count Lymph % (Auto) [place] % (Auto) Lymph # [place] # Baso # Seg Neutrophils % Seg Neuts % (Manual) Lymphocytes % (Manual) Monocytes % (Manual) Eosinophils % (Manual) Basophils % (Manual) Nucleated RBC % Seg Neutrophils # Seg Neutrophils # Man Lymphocytes # (Manual) Monocytes # (Manual) Eosinophils # (Manual) Basophils # (Manual) PT INR Fibrinogen dRVVT Confirm Interp Factor V Activity POC ABG pH POC ABG pCO2 POC ABG pO2 ABG pO2 ABG HCO3 ABG Base Excess ABG Hemoglobin Oxyhemoglobin Sodium Potassium Chloride Carbon Dioxide BUN Creatinine Glucose POC Glucose 156 H Lactic Acid Calcium Phosphorus Magnesium Direct Bilirubin AST ALT Alkaline Phosphatase Lactate Dehydrogenase Troponin T C-Reactive Protein Total Protein Albumin Prealbumin Triglycerides Cholesterol LDL Cholesterol Direct HDL Cholesterol Urine pH Urine WBC (Auto) Urine Creatinine Urine Total Protein Fluid Total Protein Vancomycin Trough Rheumatoid Factor Complement C4 Miscellaneous Test Crossmatch CT scan - chest: pending Allied health notes reviewed: RT
[2017-01-09] MEDS: DILAUDID IV PRN (15:32)
--- NOTE | 2017-01-09 16:34 | Progress Note ---
Assessment and Plan Assessment and plan: Patient is 46-year-old woman with a history of hypertension, diabetes mellitus, asthma, hyperlipidemia, chronic kidney disease and anxiety, who was brought in by family because she couldn't get her words out, her face was also twisted, she was admitted for acute CVA and accelerated hypertension, she had a hx of poor adherence with her medications, and uncontrolled htn. Patient's SBP on admission was noted be greater than 260. TPA was started but this it was discontinued after 5 minutes because her blood pressure became uncontrolled. The TPA was not initiated again because the patient was outside the TPA window. Patient has had a prolonged hospital stay complicated with recurrent severe sepsis. Patient with most recent event also status post cardiac arrest on and received CPR. -Severe Sepsis with septic shock (shock resolved) Patient with multiple episodes of sepsis. Initial episode due to presumed aspiration pneumonia and septic episode on 09/23 from candidemia, then a third episode from peritonitis from gastric perforation from dislodged PEG +/-UTI. Patient was also noted to have had Candidemia with Blood cultures positive for Silvia albicans 09/23, 09/25 but negative on 09/30. Antibiotic discontinued on 12/05 per ID. patient is s/p R thoracentesis on 11/14, 240cc of serous fluid removed, cx of fluid was negative. Also, Stool negative for C. difficile -Surgical wound infection/gram-negative sepsis/candidemia/peritonitis/fungemia. Continue wound care to ostomy sites -Acute hypoxic respiratory failure, status post tracheostomy Patient placed back on ventilation. Patient currently with CPAP mode. Patient failed T-piece trials. Tracheostomy tube leak. Pulmonary following -Acute massive CVA with mass effect; continue antiplatelets and statins CT showed continued evolution of left MCA infarct with slight mass effect and edema, and there is no hemorrhage -PRINCE showed hyperdynamic ventricle with ef of 75%, neither clot nor septal defect seen -MRA Brain shows near complete occlusion of M2 and M3 of the left MCA carotid doppler negative -Echo shows preserved systolic function but does show some left ventricular diastolic dysfunction -continue asa and statin -Oliguric acute kidney injury. Etiology secondary to ATN on CKD. Baseline creatinine is approximately 1.7. -Dislodged PEG tube: Status post repair of gastric perforation which wedge gastrectomy -Paroxysmal atrial fibrillation with rapid ventricular rate, failed cardioversion Continue current medications, Not a candidate for anticoagulation secondary to anemia, thrombocytopenia and massive CVA -Anemia; probably secondary to GI bleeding Patient received multiple units of PRBC in the past, hemoglobin currently stable -Toxic metabolic encephalopathy; supportive care -Diabetes mellitus type 2, Insulin/SSI -Severe protein caloric malnutrition, cont TPN -s/p Thrombocytopenia. Now resolved -DVT prophylaxis, SCDs, no pharmacological agent given anemia , thrombocytopenia , massive stroke -Full code status, very poor prognosis now on TPN 12/18/16: yesterday pt became hypotensive after dialysis and Vasopressin was started by Dr. Lara. She was given iv hydralazine overnight. She is still on Vasopressin, now back in AFib/aflutter with RVR. i d/w Dr. Rollins who recommends iv amiodarone drip without bolus. I also spoke with [facility], Dr. De Leon. per Dr. Rollins: Paroxysmal Afib s/p failed cardioversion on 09/25 on IV lopressor for suppression considered not a candidate for anticoagulation due to severe anemia requiring blood transfusion 12/19/16: still on vasopressin, convert back to sinus, not on Amiodarone. Still on TPN, reorder restraints 01/09/17: I am back on Ms. العراقي' care team Ethics consult pending, family refuse hospice, Insurance denied LTACH When abdominal wound heals, ?place PEG and send to [facility]. Patient now on recurrent anemia requiring 2 units packed red blood cell: ccm is following Severe Leukocytosis, re-consulted ID. If leukocytosis is not improving should repeat CT abdomen and pelvis to rule out ischemic bowel==>not done, Cr increased to 1.8 today. Will repeat labs in am The high probability of a clinically significant, sudden or life threatening deterioration of the [neurologic, CV] system(s) required my full and direct attention, intervention and personal management. The aggregate critical care time was [32] minutes. This time is in addition to time spent performing reported procedures but includes the following: [x] Data Review and interpretation [x] Patient assessment and monitoring of vital signs [x] Documentation [x] Medication orders and management I History Interval history: Patient seen and examined. Follow up on current diagnosis/respiratory failure. Still unresponsive, Imaging, old records, testing, labs, nursing notes reviewed. Hospitalist Physical - Physical exam Narrative exam: GEN: Ill appearing, trach, staring, in vegatative state NECK: SUPPLE, trach in place, ngt in place CVS: regular currently NORMAL S1S2 LUNGS/CHEST: NORMAL CHEST EXPANSION B, GOOD AIR ENTRY B ABD: SOFT, NTND, 3 ostomy bags in 3 different locations, GBS, NO REBOUND OR GUARDING EXT/SKIN: NO SIGNIFICANT EDEMA OR RASH MSK: no spontaneous movement NEURO: CN 2-12 GROSSLY INTACT, on a ventilator PSY: Comatose, - Constitutional Vitals: Temp Pulse Resp BP Pulse Ox 98.7 F 76 14 117/69 97 01/09/17 12:00 01/09/17 16:00 01/09/17 16:00 01/09/17 16:00 01/09/17 15:57 Results - Labs CBC & Chem 7: 01/08/17 05:00 01/09/17 04:40 Labs: Laboratory Last Values WBC 27.4 K/mm3 (4.5-11.0) H 01/08/17 05:00 RBC 2.27 M/mm3 (3.65-5.03) L 01/08/17 05:00 Hgb 6.1 gm/dl (10.1-14.3) L 01/08/17 05:00 Hct 20.4 % (30.3-42.9) L 01/08/17 05:00 MCV 90 fl (79-97) 01/08/17 05:00 MCH 27 pg (28-32) L 01/08/17 05:00 MCHC 30 % (30-34) 01/08/17 05:00 RDW 17.8 % (13.2-15.2) H 01/08/17 05:00 Plt Count 374 K/mm3 (140-440) 01/08/17 05:00 Lymph % (Auto) 18.5 % (13.4-35.0) 01/03/17 05:00 [place] % (Auto) 10.0 % (0.0-7.3) H 01/03/17 05:00 Eos % (Auto) 0.5 % (0.0-4.3) 01/03/17 05:00 Baso % (Auto) 0.5 % (0.0-1.8) 01/03/17 05:00 Lymph # 2.1 K/mm3 (1.2-5.4) 01/03/17 05:00 [place] # 1.1 K/mm3 (0.0-0.8) H 01/03/17 05:00 Eos # 0.1 K/mm3 (0.0-0.4) 01/03/17 05:00 Baso # 0.1 K/mm3 (0.0-0.1) 01/03/17 05:00 Add Manual Diff Complete 12/19/16 05:02 Total Counted 100 12/19/16 05:02 Seg Neutrophils % 70.5 % (40.0-70.0) H 01/03/17 05:00 Seg Neuts % (Manual) 64.0 % (40.0-70.0) 12/19/16 05:02 Band Neutrophils % 15.0 % 12/19/16 05:02 Lymphocytes % (Manual) 13.0 % (13.4-35.0) L 12/19/16 05:02 Reactive Lymphs % (Man) 0 % 12/19/16 05:02 Monocytes % (Manual) 7.0 % (0.0-7.3) 12/19/16 05:02 Eosinophils % (Manual) 0 % (0.0-4.3) 12/19/16 05:02 Basophils % (Manual) 1.0 % (0.0-1.8) 12/19/16 05:02 Metamyelocytes % 0 % 12/19/16 05:02 Myelocytes % 0 % 12/19/16 05:02 Promyelocytes % 0 % 12/19/16 05:02 Blast Cells % 0 % 12/19/16 05:02 Nucleated RBC % 1.0 % (0.0-0.9) H 12/19/16 05:02 Seg Neutrophils # 7.9 K/mm3 (1.8-7.7) H 01/03/17 05:00 Seg Neutrophils # Man 12.9 K/mm3 (1.8-7.7) H 12/19/16 05:02 Band Neutrophils # 3.0 K/mm3 12/19/16 05:02 Lymphocytes # (Manual) 2.6 K/mm3 (1.2-5.4) 12/19/16 05:02 Abs React Lymphs (Man) 0.0 K/mm3 12/19/16 05:02 Monocytes # (Manual) 1.4 K/mm3 (0.0-0.8) H 12/19/16 05:02 Eosinophils # (Manual) 0.0 K/mm3 (0.0-0.4) 12/19/16 05:02 Basophils # (Manual) 0.2 K/mm3 (0.0-0.1) H 12/19/16 05:02 Metamyelocytes # 0.0 K/mm3 12/19/16 05:02 Myelocytes # 0.0 K/mm3 12/19/16 05:02 Promyelocytes # 0.0 K/mm3 12/19/16 05:02 Blast Cells # 0.0 K/mm3 12/19/16 05:02 Pathologist Review 09/13/16 04:00 WBC Morphology Not Reportable 12/19/16 05:02 Hypersegmented Neuts Not Reportable 12/19/16 05:02 Hyposegmented Neuts Not Reportable 12/19/16 05:02 Hypogranular Neuts Not Reportable 12/19/16 05:02 Smudge Cells Not Reportable 12/19/16 05:02 Toxic Granulation Not Reportable 12/19/16 05:02 Toxic Vacuolation Not Reportable 12/19/16 05:02 Dohle Bodies Not Reportable 12/19/16 05:02 Pelger-Huet Anomaly Not Reportable 12/19/16 05:02 Jasmina Rods Not Reportable 12/19/16 05:02 Platelet Estimate Consistent w auto 12/19/16 05:02 Clumped Platelets Not Reportable 12/19/16 05:02 Plt Clumps, EDTA Not Reportable 12/19/16 05:02 Large Platelets Not Reportable 12/19/16 05:02 Giant Platelets Not Reportable 12/19/16 05:02 Platelet Satelliting Not Reportable 12/19/16 05:02 Plt Morphology Comment Not Reportable 12/19/16 05:02 RBC Morphology Not Reportable 12/19/16 05:02 Dimorphic RBCs Not Reportable 12/19/16 05:02 Polychromasia Not Reportable 12/19/16 05:02 Hypochromasia Not Reportable 12/19/16 05:02 Poikilocytosis Not Reportable 12/19/16 05:02 Anisocytosis Not Reportable 12/19/16 05:02 Microcytosis Not Reportable 12/19/16 05:02 Macrocytosis Not Reportable 12/19/16 05:02 Spherocytes Not Reportable 12/19/16 05:02 Pappenheimer Bodies Not Reportable 12/19/16 05:02 Sickle Cells Not Reportable 12/19/16 05:02 Target Cells Few 12/19/16 05:02 Tear Drop Cells Not Reportable 12/19/16 05:02 Ovalocytes Not Reportable 12/19/16 05:02 Stomatocytes Rare 12/03/16 04:00 Helmet Cells Not Reportable 12/19/16 05:02 [place] Bodies Not Reportable 12/19/16 05:02 [place] Rings Not Reportable 12/19/16 05:02 Chuck Cells Not Reportable 12/19/16 05:02 Bite Cells Not Reportable 12/19/16 05:02 Crenated Cell Not Reportable 12/19/16 05:02 Elliptocytes Not Reportable 12/19/16 05:02 Acanthocytes (Spur) Not Reportable 12/19/16 05:02 Rouleaux Not Reportable 12/19/16 05:02 Hemoglobin C Crystals Not Reportable 12/19/16 05:02 Schistocytes Not Reportable 12/19/16 05:02 Malaria parasites Not Reportable 12/19/16 05:02 ESR > 140.0 mm/Hr (0-20) 09/08/16 11:48 Jun Bodies Not Reportable 12/19/16 05:02 Hem Pathologist Commnt No 12/19/16 05:02 PT 16.1 Sec. (12.2-14.9) H 12/28/16 08:30 INR 1.23 (0.87-1.13) H 12/28/16 08:30 APTT 33.0 Sec. (24.2-36.6) 10/09/16 03:45 Thrombin Time 16.8 Sec. (15.1-19.6) 09/03/16 00:10 Fibrinogen 750 mg/dl (211-480) H 09/08/16 11:48 Lupus Anticoagulant see below 09/12/16 09:59 LA PTT Baseline See scanned report 09/12/16 09:59 dRVVT Confirm Interp Positive (Negative) H 09/12/16 09:59 dRVVT Screen 50:50 See scanned report 09/12/16 09:59 dRVVT Mix Interpret See scanned report 09/12/16 09:59 Protein C Antigen 122 % (70-140) 09/08/16 15:35 Free Protein S 97 % normal (50-147) 09/08/16 15:35 Total Protein S 109 % (70-140) 09/08/16 15:35 Antithrombin III Ag 100 % (80-120) 09/08/16 15:35 Heparin Anti-Xa, Unfract Negative (Negative) 09/29/16 13:35 Factor V Activity 182 % (65-150) H 09/08/16 15:35 POC ABG pH 7.503 (7.35-7.45) H 12/19/16 09:36 ABG pH 7.450 pH Units (7.350-7.450) 12/05/16 Unknown POC ABG pCO2 30.1 (35-45) L 12/19/16 09:36 ABG pCO2 29.6 mm Hg 12/05/16 Unknown POC ABG pO2 85 (80-105) 12/19/16 09:36 ABG pO2 75.2 mm Hg (80.0-90.0) L 12/05/16 Unknown POC ABG HCO3 23.6 12/19/16 09:36 ABG HCO3 20.1 mmol/L (20.0-26.0) 12/05/16 Unknown POC ABG Total CO2 25 12/19/16 09:36 POC ABG O2 Sat 97 12/19/16 09:36 ABG O2 Saturation 96.8 % (95.0-99.0) 12/05/16 Unknown ABG O2 Content 9.9 (0.0-44) 12/05/16 Unknown POC ABG Base Excess 1 12/19/16 09:36 ABG Base Excess -3.4 mmol/L (-2.0-3.0) L 12/05/16 Unknown ABG Hemoglobin 7.4 gm/dl (12.0-16.0) L 12/05/16 Unknown ABG Carboxyhemoglobin 1.8 % (0.0-5.0) 12/05/16 Unknown ABG Methemoglobin 0.6 % (0.0-1.5) 12/05/16 Unknown Oxyhemoglobin 94.5 % (95.0-99.0) L 12/05/16 Unknown FiO2 28 % 12/19/16 09:36 Sodium 147 mmol/L (137-145) H 01/09/17 04:40 Potassium 3.8 mmol/L (3.6-5.0) 01/09/17 04:40 Chloride 105.4 mmol/L (98-107) 01/09/17 04:40 Carbon Dioxide 25 mmol/L (22-30) D 01/09/17 04:40 Anion Gap 20 mmol/L 01/09/17 04:40 BUN 82 mg/dL (7-17) H 01/09/17 04:40 Creatinine 1.8 mg/dL (0.7-1.2) H 01/09/17 04:40 Estimated GFR 37 ml/min 01/09/17 04:40 BUN/Creatinine Ratio 46 % 01/09/17 04:40 Glucose 137 mg/dL (65-100) H 01/09/17 04:40 POC Glucose 156 (70-105) H 01/09/17 05:42 Osmolality 351 Mosm/kg 09/16/16 11:47 Lactic Acid 2.30 mmol/L (0.7-2.0) H* 01/09/17 08:22 Calcium 10.1 mg/dL (8.4-10.2) 01/09/17 04:40 Phosphorus 2.80 mg/dL (2.5-4.5) 01/09/17 04:40 Magnesium 1.90 mg/dL (1.7-2.3) 01/08/17 05:00 Total Bilirubin 0.50 mg/dL (0.1-1.2) 01/01/17 05:00 Direct Bilirubin 0.3 mg/dL (0-0.2) H 10/10/16 05:00 Indirect Bilirubin 0.1 mg/dL 10/10/16 05:00 AST 35 units/L (5-40) 01/01/17 05:00 ALT 51 units/L (7-56) 01/01/17 05:00 Alkaline Phosphatase 536 units/L (35-129) H 01/01/17 05:00 Ammonia 27.0 umol/L (25-60) 09/07/16 08:37 Lactate Dehydrogenase 196 units/L (91-180) H 11/11/16 06:59 Total Creatine Kinase 121 units/L (30-135) 09/29/16 20:12 CK-MB (CK-2) < 1.0 ng/mL (0.0-4.0) 09/29/16 20:12 CK-MB (CK-2) Rel Index 0.8 (0-4) 09/29/16 20:12 Troponin T 0.204 ng/mL (0.00-0.029) H* 09/29/16 20:12 C-Reactive Protein 24.70 mg/dL (0.00-1.30) H 01/09/17 13:30 Total Protein 6.3 g/dL (6.3-8.2) 01/01/17 05:00 Albumin 1.5 g/dL (3.9-5) L 01/01/17 05:00 Albumin/Globulin Ratio 0.3 % 01/01/17 05:00 Prealbumin 0.110 g/L (0.200-0.400) L 12/29/16 05:15 Triglycerides 137 mg/dL (2-149) 09/29/16 20:12 Cholesterol 31 mg/dL (50-199) L 09/29/16 20:12 LDL Cholesterol Direct 4 mg/dL (50-130) L 09/29/16 20:12 HDL Cholesterol 3 mg/dL (40-59) L 09/29/16 20:12 Cholesterol/HDL Ratio 10.33 % 09/29/16 20:12 Angiotensin Convert Enz See scanned report 09/08/16 11:48 Renin 0.99 ng/mL/h (0.25-5.82) 10/07/16 10:56 Aldosterone <1 ng/dL () 10/07/16 10:56 Aldosterone/Renin Dir see below 10/07/16 10:56 Serotonin Release Assay See scanned report 09/29/16 13:35 TSH 1.010 mlU/mL (0.270-4.200) 09/07/16 08:37 HCG, Qual Negative (Negative) 09/03/16 00:10 Urine Color Yellow (Yellow) 11/05/16 13:09 Urine Turbidity Clear (Clear) 11/05/16 13:09 Urine pH 9.0 (5.0-7.0) H 11/05/16 13:09 Ur Specific [place] 1.011 (1.003-1.030) 11/05/16 13:09 Urine Protein 100 mg/dl mg/dL (Negative) 11/05/16 13:09 Urine Glucose (UA) Neg mg/dL (Negative) 11/05/16 13:09 Urine Ketones Neg mg/dL (Negative) 11/05/16 13:09 Urine Blood Neg (Negative) 11/05/16 13:09 Urine Nitrite Neg (Negative) 11/05/16 13:09 Urine Bilirubin Neg (Negative) 11/05/16 13:09 Urine Urobilinogen < 2.0 mg/dL (<2.0) 11/05/16 13:09 Ur Leukocyte Esterase Neg (Negative) 11/05/16 13:09 Urine WBC (Auto) 4.0 /HPF (0.0-6.0) 11/05/16 13:09 Urine RBC (Auto) 1.0 /HPF (0.0-6.0) 11/05/16 13:09 U Epithel Cells (Auto) 1.0 /HPF (0-13.0) 10/07/16 18:30 Urine Bacteria (Auto) 4+ /HPF (Negative) 11/05/16 13:09 Urine WBC Clumps 2+ /HPF 09/07/16 02:47 Hyaline Casts 4 /LPF 09/07/16 02:47 Urine Mucus Few /HPF 10/07/16 18:30 Urine Yeast (Budding) 3+ /HPF 10/07/16 18:30 Urine Eosinophils None seen (None Seen) 09/07/16 16:00 Urine Total Volume 950 11/12/16 10:18 Urine Creatinine 19.7 mg/dL (0.1-20.0) 11/12/16 10:18 Height (in) 65.0 inches 11/12/16 10:18 Weight (lb) 181.0 lbs 11/12/16 10:18 Creatinine Clearance 5 11/12/16 10:18 Urine Sodium 36 mEq/L 09/16/16 19:19 Urine Total Protein 16 mg/dL (5-11.8) H 09/16/16 19:19 Fluid Total Protein < 3.0 (15.0-45.0) L 11/10/16 14:20 Fluid LDH 123 11/10/16 14:20 Vancomycin Trough 2.3 ug/mL (5.0-20.0) L 09/21/16 13:00 Random Vancomycin 16.5 ug/mL (0-40.0) 11/28/16 09:45 Urine Opiates Screen Presumptive negative 09/03/16 15:11 Urine Methadone Screen Presumptive positive 09/03/16 15:11 Ur Barbiturates Screen Presumptive positive 09/03/16 15:11 Ur Phencyclidine Scrn Presumptive negative 09/03/16 15:11 Ur Amphetamines Screen Presumptive negative 09/03/16 15:11 U Benzodiazepines Scrn Presumptive negative 09/03/16 15:11 Urine Cocaine Screen Presumptive negative 09/03/16 15:11 U Marijuana (THC) Screen Presumptive positive 09/03/16 15:11 Drugs of Abuse Note Disclamer 09/03/16 15:11 Rheumatoid Factor 24 IU/ml (0-13) H 09/08/16 11:48 SAHIL Screen Negative (Negative) 09/07/16 09:20 Proteinase 3 (PR3) Ab <1.0 AI (<1.0) 09/07/16 09:20 Myeloperoxidase Ab <1.0 AI (<1.0) 09/07/16 09:20 Sjogren's Antibody <1.0 AI (<1.0) 09/08/16 15:35 Scl-70 Scleroderma Ab <1.0 AI (<1.0) 09/08/16 15:35 Centromere B Antibody <1.0 AI (<1.0) 09/08/16 12:02 Heparin-induced Plt Ab Negative (Negative) 09/29/16 13:35 UF Heparin High Dose 11 % Release 09/29/16 13:35 SUDHIR UFH Low Dose 0.1 6 % Release 09/29/16 13:35 SUDHIR UFH Low Dose 0.5 8 % Release 09/29/16 13:35 Cardiolipid IgG Ab <14 GPL (<=14) 09/12/16 09:59 Cardiolipid IgA Ab <11 APL (<=11) 09/12/16 09:59 Cardiolipid IgM Ab <12 MPL (<=12) 09/12/16 09:59 Complement C3 148 mg/dL (90-180) 09/07/16 09:20 Complement C4 58 mg/dL (16-47) H 09/07/16 09:20 RPR Nonreactive (Nonreactive) 09/08/16 11:48 Hepatitis A IgM Ab Non-reactive (NonReactive) 09/24/16 14:40 Hep Bs Antigen Non-reactive (Negative) 09/24/16 14:40 Hep B Core IgM Ab Non-reactive (NonReactive) 09/24/16 14:40 Hepatitis C Antibody Non-reactive (NonReactive) 09/24/16 14:40 HIV 1&2 Antibody Rapid Non react (Non React) 09/08/16 11:48 HIV P24 Antigen Non react (Non React) 09/08/16 11:48 Miscellaneous Test Flexitest 1 H 11/05/16 13:25 Blood Type A POSITIVE 01/08/17 10:37 Antibody Screen Negative 01/08/17 10:37 DELORIS Antibody Screen Negative 11/24/16 11:20 Crossmatch See Detail 01/08/17 10:37
--- NOTE | 2017-01-09 17:28 | XRay Report ---
FINAL REPORT EXAM: XR ABDOMEN 1V AP HISTORY: NG tube placement TECHNIQUE: Supine limited portable view of the abdomen PRIORS: KUB abdomen 11/17/2016 FINDINGS: A nasogastric tube tip and side port terminates below the left diaphragm, likely in the stomach. The bowel gas pattern is nonspecific. No free air is identified. Soft tissues have no evidence for mass shadows or calcifications. The bony structures are intact. Linear density in the left lung base is likely atelectasis. IMPRESSION: Nasogastric tube in satisfactory position. Left basilar atelectasis noted incidentally.
--- NOTE | 2017-01-09 19:04 | Cat Scan Report ---
FINAL REPORT EXAM: CT ABDOMEN PELVIS W CON HISTORY: sepsis; ? intra-abdominal abscess TECHNIQUE: Standard enhanced CT of the abdomen and pelvis. Delayed imaging through the kidneys and bladder was obtained. Coronal and sagittal reconstruction was also performed. Contrast: Oral and intravenous contrast given PRIORS: CT a/P 11/21/2016, 10/21/2016 FINDINGS: There is concentric wall thickening of the dot transverse colon through the sigmoid colon. Minimal surrounding inflammation is seen in the adjacent fat and no evidence for diverticular disease is present. There is a transition zone in caliber in the mid transverse colon (coronal image 44, series 201). Findings are likely consistent with colitis. There is a well defined fluid collection along the greater curvature of the stomach. This measures 3.2 x 2.5 x 4.5 cm (axial image 29, series 4, and coronal image 58, series 201). This has been seen on multiple prior CTs and may represent a small gastric diverticulum or hematoma in the wall. Within the abdomen, the liver, spleen, pancreas, left adrenal gland, and the left kidney are unremarkable. Gallbladder has been surgically removed. Nasogastric tube terminates in the stomach. There is a stable fat containing 2.1 x 1.7 cm nodule in the right adrenal gland, likely benign. There is a stable hypodense 11 mm rounded focus in the midpole right kidney, probably an underlying cyst. There is a 12 mm enlarged lymph nodes in the left para-aortic region, stable. No evidence for pelvic lymphadenopathy is seen. The bowel loops have normal caliber. No free air is seen within the abdomen or pelvis. The appendix is not clearly defined. Small amount of ascites is present around the small bowel loops in the lower abdomen. Within the pelvis, the bladder is collapsed containing a Herndon catheter balloon. The uterus is normal. No evidence for mass or lymphadenopathy is seen in the pelvis. Images through the upper abdomen include the lung bases which demonstrates moderate bilateral free-flowing low-density pleural effusions, right greater than left. There is bibasilar compressive atelectasis. Bony structures show no focal abnormalities. Bilateral spondylolysis of L5 is seen without spondylolisthesis. Generalized anasarca in the subcutaneous fat is seen. There is an area of ulceration over the midline coccyx. The underlying bony structures of the coccyx are difficult to clearly visualized due to the small size. No focal abscess in this area is seen. However, there is a low-density fluid collection in the subcutaneous fat overlying the anterior right mid abdomen. This measures 7.2 x 4.5 x 7.8 cm (axial image 47, series 4). No internal air is seen to suggest abscess although abscess is not excluded. This may represent hematoma or seroma and can be correlated clinically. IMPRESSION: 1. Concentric wall thickening involving the distal half of the colon beginning in the mid transverse colon. Findings are suspicious for colitis 2. Fluid collection present in the wall of along the greater curvature of the stomach. This has been present previously and may represent a gastric diverticulum versus hematoma in the wall. 3. Fluid collection within the subcutaneous fat overlying the anterior abdominal right mid abdomen. Findings are most typical of hematoma or seroma. Abscess is not excluded although no internal air is present. 4. New decubitus ulcer over the midline coccyx. No definite abscess in this region is seen. 5. Stable right adrenal fat containing nodule, likely benign 6. Stable cyst in the right kidney 7. Bilateral free-flowing pleural effusions and bibasilar compressive atelectasis
[2017-01-09] MEDS ORDERED: TPN ADULT IV SCH (20:00)
[2017-01-09] MEDS ORDERED: INTRALIPID 20% 250 ML IV SCH (20:00)
[2017-01-09] MEDS: HEPARIN IV PRN (22:13)
[2017-01-10] MEDS: HEPARIN SUB-Q SCH ×3 (00:01→22:33)
[2017-01-10] MEDS: MERREM/NS 500 MG/50 ML 500 MG/50 ML BAG IV SCH (00:01)
[2017-01-10] MEDS: APRESOLINE PO SCH ×4 (00:02→22:43)
[2017-01-10] MEDS: REGLAN IV SCH ×4 (00:02→22:32)
[2017-01-10] MEDS: LOPRESSOR PO SCH ×3 (00:03→13:41)
[2017-01-10] MEDS: ROBINUL PO SCH ×3 (00:03→22:32)
[2017-01-10] MEDS: CORDARONE PO SCH ×3 (00:04→22:44)
[2017-01-10] MEDS: DUONEB *Not for PRN Use IH SCH ×4 (01:11→19:24)
[2017-01-10] MEDS: HumuLIN R SUB-Q SCH ×4 (01:26→17:54)
[2017-01-10] MEDS: DAKIN'S HALF STRENGTH TP SCH ×3 (04:14→22:45)
[2017-01-10] MEDS ORDERED: WATER FOR INJ (PF) 10 ML ONE (04:47)
[2017-01-10] MEDS ORDERED: CATHFLO ONE (04:47)
[2017-01-10] MEDS ORDERED: CATHFLO IV ONE (04:50)
[2017-01-10 05:05] LABS: Hemoglobin 8.8 gm/dl (10.1-14.3); Mean Corpuscular HGB Conc 33 % (30-34); Mean Corpuscular Hemoglobin 27 pg (28-32); Mean Corpuscular Volume 84 fl (79-97); Platelet Count 350 K/mm3 (140-440); Red Blood Count 3.22 M/mm3 (3.65-5.03)
[2017-01-10 05:34] LABS: Calcium 9.2 mg/dL (8.4-10.2)
--- NOTE | 2017-01-10 08:53 | Progress Note ---
Assessment and Plan Patient is 46-year-old woman with a history of hypertension, diabetes mellitus, asthma, hyperlipidemia, chronic kidney disease and anxiety, who was brought in by family because she couldn't get her words out, her face was also twisted, she was admitted for acute CVA and accelerated hypertension, she had a hx of poor adherence with her medications, and uncontrolled htn. Patient's SBP on admission was noted be greater than 260. TPA was started but this it was discontinued after 5 minutes because her blood pressure became uncontrolled. The TPA was not initiated again because the patient was outside the TPA window. Patient has had a prolonged hospital stay complicated with recurrent severe sepsis. Patient with most recent event also status post cardiac arrest on , with CPR and ROSC. Acute on chronic Hypoxemic Respiratory Failure ( not tolerating spontaneous breathing trials) Sepsis -recurrent s/p tracheostomy Hypertension Atrial Fibrillation with RVR Acute encephalopathy s/p CVA Oropharyngeal dysphagia Enterococcal bacteremia Sacral Decubitus Ulcer- unstageable Anemia Obesity JUANITA now on hemodialysis Enteric Fistula - VAP bundle addressed -CXR prn - continue NGT to LIS - continue wound care per WCT - Vasopressor if MAP falls < 65mmHg - keep on with daily PSV trials and / or T-piece as tolerated - continue TPN administration (continue TPN; NPO except for meds) - continue airway clearance nd secretion management - continue to wean FiO2 for sats > 94% - continue antihypertensives and monitor hemodynamics closely - continue HD/UF per nephrology - continue to follow electrolytes and correct as necessary - continue GI & VTE prophylaxis -per Cardiology--failed cardioversion, not a candidate fro full anticoagulation. No further recommendations for management of atrial fibrillation. Rate control as tolerated by hemodynamics For further interventions per surgical service, as it pertains to the replacement of the PEG tube. .....she remains critically ill on life sustaining interventions including MVS and at risk for further deterioration including ...intermediate card tender prognosis remains poor - Patient Problems (1) Acute respiratory failure with hypoxia Current Visit: Yes Status: Acute (2) Acute blood loss anemia Current Visit: Yes Status: Resolved (3) Acute CVA (cerebrovascular accident) Current Visit: Yes Status: Acute (4) Chronic renal insufficiency Current Visit: Yes Status: Acute (5) Uncontrolled hypertension Current Visit: Yes Status: Acute (6) Leukocytosis (leucocytosis) Current Visit: Yes Status: Acute Qualifiers: Leukocytosis type: leukemoid reaction Qualified Code(s): D72.823 - Leukemoid reaction (7) Dislodged gastrostomy tube Current Visit: Yes Status: Acute (8) Fungemia Current Visit: Yes Status: Resolved (9) Cardiopulmonary arrest with successful resuscitation Current Visit: Yes Status: Acute Subjective Date of service: 01/10/17 Principal diagnosis: Acute resp failure on MVS; S/P Acute CVA; Acute Encephalopathy; JUANITA Interval history: Seen and examined. Vitals, labs, medications, chart reviewed. On mechanical ventilatory support, not tolerating SBTs -was placed on PSV15/5, became tacyhpnic with low tidal volumes. Currently on 15 /5 Episodes of hypotension with leukocytosis, no fevers, empiric antibiotics initiated No further episodes of vomiting. Discussed in interdisciplinary rounds Objective - Exam Narrative Exam: GEN: Ill appearing, trach, staring, in vegatative state NECK: SUPPLE, trach in place, ngt in place CVS: regular currently NORMAL S1S2 LUNGS/CHEST: NORMAL CHEST EXPANSION B, GOOD AIR ENTRY B ABD: SOFT, NTND, 3 ostomy bags in 3 different locations, GBS, NO REBOUND OR GUARDING EXT/SKIN: NO SIGNIFICANT EDEMA OR RASH MSK: no spontaneous movement NEURO: CN 2-12 GROSSLY INTACT, on a ventilator PSY: Comatose, Vital Signs - 12hr 01/09/17 01/09/17 01/09/17 21:00 21:15 21:30 Temperature Pulse Rate 91 H 89 93 H Pulse Rate [ Bilateral Throughout] Respiratory 13 22 Rate Respiratory Rate [Bilateral Throughout] Blood Pressure 151/85 151/85 121/79 O2 Sat by Pulse 100 100 Oximetry O2 Sat by Pulse Oximetry [ Anterior Bilateral Throughout] O2 Sat by Pulse Oximetry [ Assessment] 01/09/17 01/09/17 01/09/17 21:45 22:00 22:15 Temperature Pulse Rate 93 H 92 H 91 H Pulse Rate [ Bilateral Throughout] Respiratory 13 Rate Respiratory Rate [Bilateral Throughout] Blood Pressure 121/79 103/71 103/71 O2 Sat by Pulse 100 Oximetry O2 Sat by Pulse Oximetry [ Anterior Bilateral Throughout] O2 Sat by Pulse Oximetry [ Assessment] 01/09/17 01/09/17 01/09/17 22:30 22:45 23:00 Temperature Pulse Rate 95 H 94 H 98 H Pulse Rate [ Bilateral Throughout] Respiratory 17 20 Rate Respiratory Rate [Bilateral Throughout] Blood Pressure 126/77 114/75 119/89 O2 Sat by Pulse 100 100 Oximetry O2 Sat by Pulse Oximetry [ Anterior Bilateral Throughout] O2 Sat by Pulse Oximetry [ Assessment] 01/09/17 01/09/17 01/09/17 23:13 23:15 23:30 Temperature Pulse Rate 97 H 96 H 99 H Pulse Rate [ Bilateral Throughout] Respiratory 20 Rate Respiratory Rate [Bilateral Throughout] Blood Pressure 123/87 119/81 128/81 O2 Sat by Pulse 100 100 Oximetry O2 Sat by Pulse Oximetry [ Anterior Bilateral Throughout] O2 Sat by Pulse 100 Oximetry [ Assessment] 01/09/17 01/09/17 01/10/17 23:38 23:45 00:00 Temperature 98.8 F 97.4 F L Pulse Rate 97 H 102 H Pulse Rate [ Bilateral Throughout] Respiratory 22 24 Rate Respiratory Rate [Bilateral Throughout] Blood Pressure 128/89 146/84 O2 Sat by Pulse 100 Oximetry O2 Sat by Pulse 100 Oximetry [ Anterior Bilateral Throughout] O2 Sat by Pulse Oximetry [ Assessment] 01/10/17 01/10/17 01/10/17 00:02 00:03 00:30 Temperature Pulse Rate 102 H 102 H 96 H Pulse Rate [ Bilateral Throughout] Respiratory 19 Rate Respiratory Rate [Bilateral Throughout] Blood Pressure 146/84 146/84 123/66 O2 Sat by Pulse 100 Oximetry O2 Sat by Pulse Oximetry [ Anterior Bilateral Throughout] O2 Sat by Pulse Oximetry [ Assessment] 01/10/17 01/10/17 01/10/17 01:00 01:11 01:21 Temperature Pulse Rate 88 Pulse Rate [ 80 85 Bilateral Throughout] Respiratory 20 Rate Respiratory 20 18 Rate [Bilateral Throughout] Blood Pressure 102/60 O2 Sat by Pulse 100 Oximetry O2 Sat by Pulse Oximetry [ Anterior Bilateral Throughout] O2 Sat by Pulse Oximetry [ Assessment] 01/10/17 01/10/17 01/10/17 01:30 02:00 02:30 Temperature Pulse Rate 87 88 88 Pulse Rate [ Bilateral Throughout] Respiratory 15 25 H 16 Rate Respiratory Rate [Bilateral Throughout] Blood Pressure 87/57 108/59 121/61 O2 Sat by Pulse 98 96 98 Oximetry O2 Sat by Pulse Oximetry [ Anterior Bilateral Throughout] O2 Sat by Pulse Oximetry [ Assessment] 01/10/17 01/10/17 01/10/17 03:00 03:05 03:30 Temperature Pulse Rate 89 88 89 Pulse Rate [ Bilateral Throughout] Respiratory 15 13 Rate Respiratory Rate [Bilateral Throughout] Blood Pressure 115/72 115/72 119/69 O2 Sat by Pulse 100 100 100 Oximetry O2 Sat by Pulse Oximetry [ Anterior Bilateral Throughout] O2 Sat by Pulse Oximetry [ Assessment] 01/10/17 01/10/17 01/10/17 03:38 04:00 04:05 Temperature 99.4 F Pulse Rate 91 H Pulse Rate [ Bilateral Throughout] Respiratory 17 18 Rate Respiratory Rate [Bilateral Throughout] Blood Pressure 123/69 O2 Sat by Pulse 100 100 Oximetry O2 Sat by Pulse Oximetry [ Anterior Bilateral Throughout] O2 Sat by Pulse Oximetry [ Assessment] 01/10/17 01/10/17 01/10/17 04:30 05:00 05:30 Temperature Pulse Rate 90 96 H 100 H Pulse Rate [ Bilateral Throughout] Respiratory 17 19 13 Rate Respiratory Rate [Bilateral Throughout] Blood Pressure 108/68 119/71 136/83 O2 Sat by Pulse 100 99 100 Oximetry O2 Sat by Pulse Oximetry [ Anterior Bilateral Throughout] O2 Sat by Pulse Oximetry [ Assessment] 01/10/17 01/10/17 01/10/17 06:00 06:23 06:24 Temperature Pulse Rate 95 H 102 H 102 H Pulse Rate [ Bilateral Throughout] Respiratory 21 Rate Respiratory Rate [Bilateral Throughout] Blood Pressure 122/71 116/72 116/74 O2 Sat by Pulse 100 Oximetry O2 Sat by Pulse Oximetry [ Anterior Bilateral Throughout] O2 Sat by Pulse Oximetry [ Assessment] 01/10/17 01/10/17 01/10/17 06:30 07:00 07:30 Temperature Pulse Rate 85 80 79 Pulse Rate [ Bilateral Throughout] Respiratory 21 16 12 Rate Respiratory Rate [Bilateral Throughout] Blood Pressure 103/58 101/55 101/57 O2 Sat by Pulse 100 99 99 Oximetry O2 Sat by Pulse Oximetry [ Anterior Bilateral Throughout] O2 Sat by Pulse Oximetry [ Assessment] 01/10/17 01/10/17 08:00 08:30 Temperature 98.6 F Pulse Rate 81 82 Pulse Rate [ Bilateral Throughout] Respiratory 16 22 Rate Respiratory Rate [Bilateral Throughout] Blood Pressure 108/66 105/65 O2 Sat by Pulse 99 99 Oximetry O2 Sat by Pulse Oximetry [ Anterior Bilateral Throughout] O2 Sat by Pulse Oximetry [ Assessment] Constitutional: appears uncomfortable, other (not tracking) Eyes: non-icteric, other (tracheostomy tube in midline of neck) ENT: oropharynx moist, oropharyngeal exudate pre Neck: supple, no lymphadenopathy, no JVD, other (no thyromegaly) Effort: mildly labored Ascultation: Bilateral: clear, diminished breath sounds (bases), rales, rhonchi (and referred upper airway sounds) Percussion: Bilateral: not dull, dull (bases) Cardiovascular: regular rate and rhythm, other (no rubs / murmurs) Gastrointestinal: hypoactive bowel sounds, soft, non-tender, non-distended, other (RLQ & LUQ stomas with colostomy bags) Integumentary: decubitus ulcer (sacral; stage 4 s/p surgical debridement), other (no rash; no cellulitis; poor turgor) Extremities: no cyanosis, pulses normal, no ischemia or petechiae, edema (1+ bilaterally) Neurologic: pupils equal and round, unable to assess, other (encephalopathic) Psychiatric: other (unable to assess) CBC and BMP: 01/10/17 04:00 01/10/17 04:00 ABG, PT/INR, D-dimer: ABG POC ABG pH 7.503 (7.35-7.45) H 12/19/16 09:36 ABG pH 7.450 pH Units (7.350-7.450) 12/05/16 Unknown POC ABG pCO2 30.1 (35-45) L 12/19/16 09:36 ABG pCO2 29.6 mm Hg 12/05/16 Unknown POC ABG pO2 85 (80-105) 12/19/16 09:36 ABG pO2 75.2 mm Hg (80.0-90.0) L 12/05/16 Unknown POC ABG HCO3 23.6 12/19/16 09:36 POC ABG Total CO2 25 12/19/16 09:36 POC ABG O2 Sat 97 12/19/16 09:36 ABG O2 Saturation 96.8 % (95.0-99.0) 12/05/16 Unknown PT/INR, D-dimer PT 16.1 Sec. (12.2-14.9) H 12/28/16 08:30 INR 1.23 (0.87-1.13) H 12/28/16 08:30 Abnormal lab findings: Abnormal Labs 09/03/16 09/03/16 09/03/16 00:03 00:10 00:10 WBC 13.9 H RBC 5.95 H Hgb Hct 44.0 H MCV 74 L MCH 22 L MCHC RDW 17.5 H Plt Count Lymph % (Auto) Trigg % (Auto) Lymph # Trigg # Baso # Seg Neutrophils % Seg Neuts % (Manual) Lymphocytes % (Manual) 54.0 H Monocytes % (Manual) Eosinophils % (Manual) Basophils % (Manual) Nucleated RBC % Seg Neutrophils # Seg Neutrophils # Man Lymphocytes # (Manual) 7.5 H Monocytes # (Manual) Eosinophils # (Manual) Basophils # (Manual) PT INR Fibrinogen dRVVT Confirm Interp Factor V Activity POC ABG pH POC ABG pCO2 POC ABG pO2 ABG pO2 ABG HCO3 ABG Base Excess ABG Hemoglobin Oxyhemoglobin Sodium Potassium 2.8 L* Chloride Carbon Dioxide 21 L BUN Creatinine 1.7 H Glucose 159 H POC Glucose 177 H Lactic Acid Calcium Phosphorus Magnesium Direct Bilirubin AST ALT Alkaline Phosphatase Lactate Dehydrogenase Troponin T C-Reactive Protein Total Protein Albumin Prealbumin Triglycerides Cholesterol LDL Cholesterol Direct HDL Cholesterol Urine pH Urine WBC (Auto) Urine Creatinine Urine Total Protein Fluid Total Protein Vancomycin Trough Rheumatoid Factor Complement C4 Miscellaneous Test Crossmatch 09/03/16 09/03/16 09/03/16 12:12 15:07 16:20 WBC RBC Hgb Hct MCV MCH MCHC RDW Plt Count Lymph % (Auto) Trigg % (Auto) Lymph # Trigg # Baso # Seg Neutrophils % Seg Neuts % (Manual) Lymphocytes % (Manual) Monocytes % (Manual) Eosinophils % (Manual) Basophils % (Manual) Nucleated RBC % Seg Neutrophils # Seg Neutrophils # Man Lymphocytes # (Manual) Monocytes # (Manual) Eosinophils # (Manual) Basophils # (Manual) PT INR Fibrinogen dRVVT Confirm Interp Factor V Activity POC ABG pH 7.452 H POC ABG pCO2 POC ABG pO2 ABG pO2 ABG HCO3 ABG Base Excess ABG Hemoglobin Oxyhemoglobin Sodium Potassium Chloride Carbon Dioxide BUN Creatinine Glucose POC Glucose 178 H Lactic Acid Calcium Phosphorus 2.20 L Magnesium 1.60 L Direct Bilirubin AST ALT Alkaline Phosphatase Lactate Dehydrogenase Troponin T C-Reactive Protein Total Protein Albumin Prealbumin Triglycerides Cholesterol LDL Cholesterol Direct HDL Cholesterol Urine pH Urine WBC (Auto) Urine Creatinine Urine Total Protein Fluid Total Protein Vancomycin Trough Rheumatoid Factor Complement C4 Miscellaneous Test Crossmatch 09/03/16 09/03/16 09/03/16 17:57 17:58 23:50 WBC RBC Hgb Hct MCV MCH MCHC RDW Plt Count Lymph % (Auto) Trigg % (Auto) Lymph # Trigg # Baso # Seg Neutrophils % Seg Neuts % (Manual) Lymphocytes % (Manual) Monocytes % (Manual) Eosinophils % (Manual) Basophils % (Manual) Nucleated RBC % Seg Neutrophils # Seg Neutrophils # Man Lymphocytes # (Manual) Monocytes # (Manual) Eosinophils # (Manual) Basophils # (Manual) PT INR Fibrinogen dRVVT Confirm Interp Factor V Activity POC ABG pH POC ABG pCO2 POC ABG pO2 ABG pO2 ABG HCO3 ABG Base Excess ABG Hemoglobin Oxyhemoglobin Sodium Potassium Chloride Carbon Dioxide BUN Creatinine Glucose POC Glucose 162 H 145 H Lactic Acid Calcium Phosphorus 2.30 L Magnesium Direct Bilirubin AST ALT Alkaline Phosphatase Lactate Dehydrogenase Troponin T C-Reactive Protein Total Protein Albumin Prealbumin Triglycerides Cholesterol LDL Cholesterol Direct HDL Cholesterol Urine pH Urine WBC (Auto) Urine Creatinine Urine Total Protein Fluid Total Protein Vancomycin Trough Rheumatoid Factor Complement C4 Miscellaneous Test Crossmatch 09/04/16 09/04/16 09/04/16 03:31 03:31 05:42 WBC RBC Hgb 9.7 L D Hct MCV 72 L MCH 23 L MCHC RDW 17.5 H Plt Count Lymph % (Auto) 11.1 L Trigg % (Auto) Lymph # Trigg # Baso # Seg Neutrophils % 84.3 H Seg Neuts % (Manual) Lymphocytes % (Manual) Monocytes % (Manual) Eosinophils % (Manual) Basophils % (Manual) Nucleated RBC % Seg Neutrophils # 8.9 H Seg Neutrophils # Man Lymphocytes # (Manual) Monocytes # (Manual) Eosinophils # (Manual) Basophils # (Manual) PT INR Fibrinogen dRVVT Confirm Interp Factor V Activity POC ABG pH POC ABG pCO2 POC ABG pO2 ABG pO2 ABG HCO3 ABG Base Excess ABG Hemoglobin Oxyhemoglobin Sodium 135 L Potassium 2.9 L* Chloride 97.2 L Carbon Dioxide 19 L BUN Creatinine 1.7 H Glucose 170 H POC Glucose 152 H Lactic Acid Calcium Phosphorus Magnesium Direct Bilirubin AST ALT Alkaline Phosphatase Lactate Dehydrogenase Troponin T C-Reactive Protein Total Protein Albumin Prealbumin Triglycerides 160 H Cholesterol LDL Cholesterol Direct HDL Cholesterol 31 L Urine pH Urine WBC (Auto) Urine Creatinine Urine Total Protein Fluid Total Protein Vancomycin Trough Rheumatoid Factor Complement C4 Miscellaneous Test Crossmatch 09/04/16 09/04/16 09/04/16 11:34 17:46 23:29 WBC RBC Hgb Hct MCV MCH MCHC RDW Plt Count Lymph % (Auto) Trigg % (Auto) Lymph # Trigg # Baso # Seg Neutrophils % Seg Neuts % (Manual) Lymphocytes % (Manual) Monocytes % (Manual) Eosinophils % (Manual) Basophils % (Manual) Nucleated RBC % Seg Neutrophils # Seg Neutrophils # Man Lymphocytes # (Manual) Monocytes # (Manual) Eosinophils # (Manual) Basophils # (Manual) PT INR Fibrinogen dRVVT Confirm Interp Factor V Activity POC ABG pH POC ABG pCO2 POC ABG pO2 ABG pO2 ABG HCO3 ABG Base Excess ABG Hemoglobin Oxyhemoglobin Sodium Potassium Chloride Carbon Dioxide BUN Creatinine Glucose POC Glucose 165 H 210 H 139 H Lactic Acid Calcium Phosphorus Magnesium Direct Bilirubin AST ALT Alkaline Phosphatase Lactate Dehydrogenase Troponin T C-Reactive Protein Total Protein Albumin Prealbumin Triglycerides Cholesterol LDL Cholesterol Direct HDL Cholesterol Urine pH Urine WBC (Auto) Urine Creatinine Urine Total Protein Fluid Total Protein Vancomycin Trough Rheumatoid Factor Complement C4 Miscellaneous Test Crossmatch 09/05/16 09/05/16 09/05/16 04:05 04:05 05:38 WBC RBC Hgb Hct MCV 76 L D MCH 23 L MCHC RDW 17.8 H Plt Count Lymph % (Auto) Trigg % (Auto) Lymph # Trigg # Baso # Seg Neutrophils % Seg Neuts % (Manual) Lymphocytes % (Manual) Monocytes % (Manual) Eosinophils % (Manual) Basophils % (Manual) Nucleated RBC % Seg Neutrophils # Seg Neutrophils # Man Lymphocytes # (Manual) Monocytes # (Manual) Eosinophils # (Manual) Basophils # (Manual) PT INR Fibrinogen dRVVT Confirm Interp Factor V Activity POC ABG pH POC ABG pCO2 POC ABG pO2 ABG pO2 ABG HCO3 ABG Base Excess ABG Hemoglobin Oxyhemoglobin Sodium 134 L Potassium Chloride Carbon Dioxide 18 L BUN Creatinine 1.8 H Glucose 192 H POC Glucose 175 H Lactic Acid Calcium Phosphorus Magnesium Direct Bilirubin AST ALT Alkaline Phosphatase Lactate Dehydrogenase Troponin T C-Reactive Protein Total Protein Albumin Prealbumin Triglycerides Cholesterol LDL Cholesterol Direct HDL Cholesterol Urine pH Urine WBC (Auto) Urine Creatinine Urine Total Protein Fluid Total Protein Vancomycin Trough Rheumatoid Factor Complement C4 Miscellaneous Test Crossmatch 09/05/16 09/05/1609/05/17 11:38 17:48 23:22 WBC RBC Hgb Hct MCV MCH MCHC RDW Plt Count Lymph % (Auto) Trigg % (Auto) Lymph # Trigg # Baso # Seg Neutrophils % Seg Neuts % (Manual) Lymphocytes % (Manual) Monocytes % (Manual) Eosinophils % (Manual) Basophils % (Manual) Nucleated RBC % Seg Neutrophils # Seg Neutrophils # Man Lymphocytes # (Manual) Monocytes # (Manual) Eosinophils # (Manual) Basophils # (Manual) PT INR Fibrinogen dRVVT Confirm Interp Factor V Activity POC ABG pH POC ABG pCO2 POC ABG pO2 ABG pO2 ABG HCO3 ABG Base Excess ABG Hemoglobin Oxyhemoglobin Sodium Potassium Chloride Carbon Dioxide BUN Creatinine Glucose POC Glucose 164 H 186 H 195 H Lactic Acid Calcium Phosphorus Magnesium Direct Bilirubin AST ALT Alkaline Phosphatase Lactate Dehydrogenase Troponin T C-Reactive Protein Total Protein Albumin Prealbumin Triglycerides Cholesterol LDL Cholesterol Direct HDL Cholesterol Urine pH Urine WBC (Auto) Urine Creatinine Urine Total Protein Fluid Total Protein Vancomycin Trough Rheumatoid Factor Complement C4 Miscellaneous Test Crossmatch 09/06/16 09/06/16 09/06/16 04:12 05:59 07:32 WBC RBC Hgb Hct MCV MCH MCHC RDW Plt Count Lymph % (Auto) Trigg % (Auto) Lymph # Trigg # Baso # Seg Neutrophils % Seg Neuts % (Manual) Lymphocytes % (Manual) Monocytes % (Manual) Eosinophils % (Manual) Basophils % (Manual) Nucleated RBC % Seg Neutrophils # Seg Neutrophils # Man Lymphocytes # (Manual) Monocytes # (Manual) Eosinophils # (Manual) Basophils # (Manual) PT INR Fibrinogen dRVVT Confirm Interp Factor V Activity POC ABG pH 7.514 H POC ABG pCO2 29.1 L POC ABG pO2 72 L ABG pO2 ABG HCO3 ABG Base Excess ABG Hemoglobin Oxyhemoglobin Sodium 133 L Potassium 3.4 L Chloride 94.9 L Carbon Dioxide 19 L BUN 30 H Creatinine 2.1 H Glucose 139 H POC Glucose 146 H Lactic Acid Calcium Phosphorus Magnesium Direct Bilirubin AST ALT Alkaline Phosphatase Lactate Dehydrogenase Troponin T C-Reactive Protein Total Protein Albumin Prealbumin Triglycerides Cholesterol LDL Cholesterol Direct HDL Cholesterol Urine pH Urine WBC (Auto) Urine Creatinine Urine Total Protein Fluid Total Protein Vancomycin Trough Rheumatoid Factor Complement C4 Miscellaneous Test Crossmatch 09/06/16 09/06/16 09/06/16 11:57 17:58 19:02 WBC RBC Hgb Hct MCV MCH MCHC RDW Plt Count Lymph % (Auto) Trigg % (Auto) Lymph # Trigg # Baso # Seg Neutrophils % Seg Neuts % (Manual) Lymphocytes % (Manual) Monocytes % (Manual) Eosinophils % (Manual) Basophils % (Manual) Nucleated RBC % Seg Neutrophils # Seg Neutrophils # Man Lymphocytes # (Manual) Monocytes # (Manual) Eosinophils # (Manual) Basophils # (Manual) PT INR Fibrinogen dRVVT Confirm Interp Factor V Activity POC ABG pH 7.465 H POC ABG pCO2 32.0 L POC ABG pO2 ABG pO2 ABG HCO3 ABG Base Excess ABG Hemoglobin Oxyhemoglobin Sodium Potassium Chloride Carbon Dioxide BUN Creatinine Glucose POC Glucose 165 H 160 H Lactic Acid Calcium Phosphorus Magnesium Direct Bilirubin AST ALT Alkaline Phosphatase Lactate Dehydrogenase Troponin T C-Reactive Protein Total Protein Albumin Prealbumin Triglycerides Cholesterol LDL Cholesterol Direct HDL Cholesterol Urine pH Urine WBC (Auto) Urine Creatinine Urine Total Protein Fluid Total Protein Vancomycin Trough Rheumatoid Factor Complement C4 Miscellaneous Test Crossmatch 09/06/16 09/07/16 09/07/16 23:45 02:47 02:47 WBC RBC Hgb Hct MCV MCH MCHC RDW Plt Count Lymph % (Auto) Trigg % (Auto) Lymph # Trigg # Baso # Seg Neutrophils % Seg Neuts % (Manual) Lymphocytes % (Manual) Monocytes % (Manual) Eosinophils % (Manual) Basophils % (Manual) Nucleated RBC % Seg Neutrophils # Seg Neutrophils # Man Lymphocytes # (Manual) Monocytes # (Manual) Eosinophils # (Manual) Basophils # (Manual) PT INR Fibrinogen dRVVT Confirm Interp Factor V Activity POC ABG pH POC ABG pCO2 POC ABG pO2 ABG pO2 ABG HCO3 ABG Base Excess ABG Hemoglobin Oxyhemoglobin Sodium Potassium Chloride Carbon Dioxide BUN Creatinine Glucose POC Glucose 204 H Lactic Acid Calcium Phosphorus Magnesium Direct Bilirubin AST ALT Alkaline Phosphatase Lactate Dehydrogenase Troponin T C-Reactive Protein Total Protein Albumin Prealbumin Triglycerides Cholesterol LDL Cholesterol Direct HDL Cholesterol Urine pH Urine WBC (Auto) 68.0 H Urine Creatinine 106.1 H Urine Total Protein Fluid Total Protein Vancomycin Trough Rheumatoid Factor Complement C4 Miscellaneous Test Crossmatch 09/07/16 09/07/16 09/07/16 04:50 06:19 06:39 WBC RBC Hgb Hct MCV MCH MCHC RDW Plt Count Lymph % (Auto) Trigg % (Auto) Lymph # Trigg # Baso # Seg Neutrophils % Seg Neuts % (Manual) Lymphocytes % (Manual) Monocytes % (Manual) Eosinophils % (Manual) Basophils % (Manual) Nucleated RBC % Seg Neutrophils # Seg Neutrophils # Man Lymphocytes # (Manual) Monocytes # (Manual) Eosinophils # (Manual) Basophils # (Manual) PT INR Fibrinogen dRVVT Confirm Interp Factor V Activity POC ABG pH 7.457 H POC ABG pCO2 32.1 L POC ABG pO2 76 L ABG pO2 ABG HCO3 ABG Base Excess ABG Hemoglobin Oxyhemoglobin Sodium 132 L Potassium Chloride 94.7 L Carbon Dioxide BUN 53 H Creatinine 2.9 H Glucose 151 H POC Glucose 149 H Lactic Acid Calcium Phosphorus Magnesium Direct Bilirubin AST ALT Alkaline Phosphatase Lactate Dehydrogenase Troponin T C-Reactive Protein Total Protein Albumin Prealbumin Triglycerides Cholesterol LDL Cholesterol Direct HDL Cholesterol Urine pH Urine WBC (Auto) Urine Creatinine Urine Total Protein Fluid Total Protein Vancomycin Trough Rheumatoid Factor Complement C4 Miscellaneous Test Crossmatch 09/07/16 09/07/16 09/07/16 09:20 11:43 11:43 WBC 19.4 H RBC Hgb 8.3 L Hct 26.4 L D MCV 72 L D MCH 22 L MCHC RDW 17.9 H Plt Count Lymph % (Auto) 8.5 L Trigg % (Auto) Lymph # Trigg # 1.0 H Baso # Seg Neutrophils % 85.8 H Seg Neuts % (Manual) Lymphocytes % (Manual) Monocytes % (Manual) Eosinophils % (Manual) Basophils % (Manual) Nucleated RBC % Seg Neutrophils # 16.6 H Seg Neutrophils # Man Lymphocytes # (Manual) Monocytes # (Manual) Eosinophils # (Manual) Basophils # (Manual) PT INR Fibrinogen dRVVT Confirm Interp Factor V Activity POC ABG pH POC ABG pCO2 POC ABG pO2 ABG pO2 ABG HCO3 ABG Base Excess ABG Hemoglobin Oxyhemoglobin Sodium 134 L Potassium Chloride 97.2 L Carbon Dioxide 20 L BUN 58 H Creatinine 2.9 H Glucose 147 H POC Glucose Lactic Acid Calcium Phosphorus 2.40 L Magnesium 2.40 H Direct Bilirubin AST ALT Alkaline Phosphatase Lactate Dehydrogenase Troponin T C-Reactive Protein Total Protein 5.8 L Albumin 2.2 L Prealbumin Triglycerides Cholesterol LDL Cholesterol Direct HDL Cholesterol Urine pH Urine WBC (Auto) Urine Creatinine Urine Total Protein Fluid Total Protein Vancomycin Trough Rheumatoid Factor Complement C4 58 H Miscellaneous Test Crossmatch 09/07/16 09/07/16 09/07/16 11:50 16:00 17:31 WBC RBC Hgb Hct MCV MCH MCHC RDW Plt Count Lymph % (Auto) Trigg % (Auto) Lymph # Trigg # Baso # Seg Neutrophils % Seg Neuts % (Manual) Lymphocytes % (Manual) Monocytes % (Manual) Eosinophils % (Manual) Basophils % (Manual) Nucleated RBC % Seg Neutrophils # Seg Neutrophils # Man Lymphocytes # (Manual) Monocytes # (Manual) Eosinophils # (Manual) Basophils # (Manual) PT INR Fibrinogen dRVVT Confirm Interp Factor V Activity POC ABG pH POC ABG pCO2 POC ABG pO2 158 H ABG pO2 ABG HCO3 ABG Base Excess ABG Hemoglobin Oxyhemoglobin Sodium Potassium Chloride Carbon Dioxide BUN Creatinine Glucose POC Glucose 175 H Lactic Acid Calcium Phosphorus Magnesium Direct Bilirubin AST ALT Alkaline Phosphatase Lactate Dehydrogenase Troponin T C-Reactive Protein Total Protein Albumin Prealbumin Triglycerides Cholesterol LDL Cholesterol Direct HDL Cholesterol Urine pH Urine WBC (Auto) Urine Creatinine 66.3 H Urine Total Protein Fluid Total Protein Vancomycin Trough Rheumatoid Factor Complement C4 Miscellaneous Test Crossmatch 09/07/16 09/08/16 09/08/16 23:50 05:46 06:18 WBC 17.8 H RBC 3.58 L Hgb 8.1 L Hct 25.5 L MCV 71 L MCH 23 L MCHC RDW 18.4 H Plt Count Lymph % (Auto) Trigg % (Auto) Lymph # Trigg # Baso # Seg Neutrophils % Seg Neuts % (Manual) 92.0 H Lymphocytes % (Manual) 6.0 L Monocytes % (Manual) Eosinophils % (Manual) Basophils % (Manual) Nucleated RBC % Seg Neutrophils # Seg Neutrophils # Man 16.4 H Lymphocytes # (Manual) 1.1 L Monocytes # (Manual) Eosinophils # (Manual) Basophils # (Manual) PT INR Fibrinogen dRVVT Confirm Interp Factor V Activity POC ABG pH POC ABG pCO2 34.3 L POC ABG pO2 71 L ABG pO2 ABG HCO3 ABG Base Excess ABG Hemoglobin Oxyhemoglobin Sodium Potassium Chloride Carbon Dioxide BUN Creatinine Glucose POC Glucose 216 H Lactic Acid Calcium Phosphorus Magnesium Direct Bilirubin AST ALT Alkaline Phosphatase Lactate Dehydrogenase Troponin T C-Reactive Protein Total Protein Albumin Prealbumin Triglycerides Cholesterol LDL Cholesterol Direct HDL Cholesterol Urine pH Urine WBC (Auto) Urine Creatinine Urine Total Protein Fluid Total Protein Vancomycin Trough Rheumatoid Factor Complement C4 Miscellaneous Test Crossmatch 09/08/16 09/08/16 09/08/16 06:18 06:51 10:55 WBC RBC Hgb Hct MCV MCH MCHC RDW Plt Count Lymph % (Auto) Trigg % (Auto) Lymph # Trigg # Baso # Seg Neutrophils % Seg Neuts % (Manual) Lymphocytes % (Manual) Monocytes % (Manual) Eosinophils % (Manual) Basophils % (Manual) Nucleated RBC % Seg Neutrophils # Seg Neutrophils # Man Lymphocytes # (Manual) Monocytes # (Manual) Eosinophils # (Manual) Basophils # (Manual) PT INR Fibrinogen dRVVT Confirm Interp Factor V Activity POC ABG pH POC ABG pCO2 POC ABG pO2 ABG pO2 ABG HCO3 ABG Base Excess ABG Hemoglobin Oxyhemoglobin Sodium 133 L Potassium Chloride 96.9 L Carbon Dioxide 20 L BUN 63 H Creatinine 2.7 H Glucose 195 H POC Glucose 204 H 169 H Lactic Acid Calcium Phosphorus Magnesium Direct Bilirubin AST ALT Alkaline Phosphatase Lactate Dehydrogenase Troponin T C-Reactive Protein Total Protein Albumin Prealbumin Triglycerides Cholesterol LDL Cholesterol Direct HDL Cholesterol Urine pH Urine WBC (Auto) Urine Creatinine Urine Total Protein Fluid Total Protein Vancomycin Trough Rheumatoid Factor Complement C4 Miscellaneous Test Crossmatch 09/08/16 09/08/16 09/08/16 11:48 11:48 11:48 WBC RBC Hgb Hct MCV MCH MCHC RDW Plt Count Lymph % (Auto) [place] % (Auto) Lymph # Trigg # Baso # Seg Neutrophils % Seg Neuts % (Manual) Lymphocytes % (Manual) Monocytes % (Manual) Eosinophils % (Manual) Basophils % (Manual) Nucleated RBC % Seg Neutrophils # Seg Neutrophils # Man Lymphocytes # (Manual) Monocytes # (Manual) Eosinophils # (Manual) Basophils # (Manual) PT INR Fibrinogen 750 H dRVVT Confirm Interp Factor V Activity POC ABG pH POC ABG pCO2 POC ABG pO2 ABG pO2 ABG HCO3 ABG Base Excess ABG Hemoglobin Oxyhemoglobin Sodium Potassium Chloride Carbon Dioxide BUN Creatinine Glucose POC Glucose Lactic Acid Calcium Phosphorus Magnesium Direct Bilirubin AST ALT Alkaline Phosphatase Lactate Dehydrogenase Troponin T C-Reactive Protein 15.70 H Total Protein Albumin Prealbumin Triglycerides Cholesterol LDL Cholesterol Direct HDL Cholesterol Urine pH Urine WBC (Auto) Urine Creatinine Urine Total Protein Fluid Total Protein Vancomycin Trough Rheumatoid Factor 24 H Complement C4 Miscellaneous Test Crossmatch 09/08/16 09/08/16 09/09/16 15:35 18:25 00:24 WBC RBC Hgb Hct MCV MCH MCHC RDW Plt Count Lymph % (Auto) [place] % (Auto) Lymph # Trigg # Baso # Seg Neutrophils % Seg Neuts % (Manual) Lymphocytes % (Manual) Monocytes % (Manual) Eosinophils % (Manual) Basophils % (Manual) Nucleated RBC % Seg Neutrophils # Seg Neutrophils # Man Lymphocytes # (Manual) Monocytes # (Manual) Eosinophils # (Manual) Basophils # (Manual) PT INR Fibrinogen dRVVT Confirm Interp Factor V Activity 182 H POC ABG pH POC ABG pCO2 POC ABG pO2 ABG pO2 ABG HCO3 ABG Base Excess ABG Hemoglobin Oxyhemoglobin Sodium Potassium Chloride Carbon Dioxide BUN Creatinine Glucose POC Glucose 184 H 216 H Lactic Acid Calcium Phosphorus Magnesium Direct Bilirubin AST ALT Alkaline Phosphatase Lactate Dehydrogenase Troponin T C-Reactive Protein Total Protein Albumin Prealbumin Triglycerides Cholesterol LDL Cholesterol Direct HDL Cholesterol Urine pH Urine WBC (Auto) Urine Creatinine Urine Total Protein Fluid Total Protein Vancomycin Trough Rheumatoid Factor Complement C4 Miscellaneous Test Crossmatch 09/09/16 09/09/16 09/09/16 03:00 03:00 04:04 WBC 27.9 H RBC Hgb 8.7 L Hct 28.1 L MCV 72 L MCH 22 L MCHC RDW 18.4 H Plt Count 485 H Lymph % (Auto) [place] % (Auto) Lymph # Trigg # Baso # Seg Neutrophils % Seg Neuts % (Manual) 77.0 H Lymphocytes % (Manual) 9.0 L Monocytes % (Manual) Eosinophils % (Manual) Basophils % (Manual) Nucleated RBC % Seg Neutrophils # Seg Neutrophils # Man 21.5 H Lymphocytes # (Manual) Monocytes # (Manual) 2.0 H Eosinophils # (Manual) Basophils # (Manual) PT INR Fibrinogen dRVVT Confirm Interp Factor V Activity POC ABG pH POC ABG pCO2 POC ABG pO2 121 H ABG pO2 ABG HCO3 ABG Base Excess ABG Hemoglobin Oxyhemoglobin Sodium 135 L Potassium Chloride 96.3 L Carbon Dioxide 21 L BUN 83 H Creatinine 3.0 H Glucose 135 H POC Glucose Lactic Acid Calcium Phosphorus Magnesium Direct Bilirubin AST ALT Alkaline Phosphatase Lactate Dehydrogenase Troponin T C-Reactive Protein Total Protein Albumin Prealbumin Triglycerides Cholesterol LDL Cholesterol Direct HDL Cholesterol Urine pH Urine WBC (Auto) Urine Creatinine Urine Total Protein Fluid Total Protein Vancomycin Trough Rheumatoid Factor Complement C4 Miscellaneous Test Crossmatch 09/09/16 09/09/16 09/09/16 05:41 11:55 14:13 WBC RBC Hgb Hct MCV MCH MCHC RDW Plt Count Lymph % (Auto) [place] % (Auto) Lymph # Trigg # Baso # Seg Neutrophils % Seg Neuts % (Manual) Lymphocytes % (Manual) Monocytes % (Manual) Eosinophils % (Manual) Basophils % (Manual) Nucleated RBC % Seg Neutrophils # Seg Neutrophils # Man Lymphocytes # (Manual) Monocytes # (Manual) Eosinophils # (Manual) Basophils # (Manual) PT INR Fibrinogen dRVVT Confirm Interp Factor V Activity POC ABG pH POC ABG pCO2 POC ABG pO2 ABG pO2 ABG HCO3 ABG Base Excess ABG Hemoglobin Oxyhemoglobin Sodium Potassium Chloride Carbon Dioxide BUN Creatinine Glucose POC Glucose 155 H 186 H Lactic Acid Calcium Phosphorus Magnesium Direct Bilirubin AST ALT Alkaline Phosphatase Lactate Dehydrogenase Troponin T C-Reactive Protein Total Protein Albumin Prealbumin Triglycerides Cholesterol LDL Cholesterol Direct HDL Cholesterol Urine pH Urine WBC (Auto) 25.0 H Urine Creatinine Urine Total Protein Fluid Total Protein Vancomycin Trough Rheumatoid Factor Complement C4 Miscellaneous Test Crossmatch 09/09/16 09/09/16 09/10/16 17:33 23:13 05:09 WBC RBC Hgb Hct MCV MCH MCHC RDW Plt Count Lymph % (Auto) [place] % (Auto) Lymph # Trigg # Baso # Seg Neutrophils % Seg Neuts % (Manual) Lymphocytes % (Manual) Monocytes % (Manual) Eosinophils % (Manual) Basophils % (Manual) Nucleated RBC % Seg Neutrophils # Seg Neutrophils # Man Lymphocytes # (Manual) Monocytes # (Manual) Eosinophils # (Manual) Basophils # (Manual) PT INR Fibrinogen dRVVT Confirm Interp Factor V Activity POC ABG pH POC ABG pCO2 POC ABG pO2 74 L ABG pO2 ABG HCO3 ABG Base Excess ABG Hemoglobin Oxyhemoglobin Sodium Potassium Chloride Carbon Dioxide BUN Creatinine Glucose POC Glucose 211 H 215 H Lactic Acid Calcium Phosphorus Magnesium Direct Bilirubin AST ALT Alkaline Phosphatase Lactate Dehydrogenase Troponin T C-Reactive Protein Total Protein Albumin Prealbumin Triglycerides Cholesterol LDL Cholesterol Direct HDL Cholesterol Urine pH Urine WBC (Auto) Urine Creatinine Urine Total Protein Fluid Total Protein Vancomycin Trough Rheumatoid Factor Complement C4 Miscellaneous Test Crossmatch 09/10/16 09/10/16 09/10/16 05:17 05:17 11:31 WBC 15.8 H RBC 3.25 L Hgb 7.3 L Hct 22.9 L MCV 71 L MCH 23 L MCHC RDW 18.4 H Plt Count Lymph % (Auto) [place] % (Auto) Lymph # Trigg # Baso # Seg Neutrophils % Seg Neuts % (Manual) 91.0 H Lymphocytes % (Manual) 4.0 L Monocytes % (Manual) Eosinophils % (Manual) Basophils % (Manual) Nucleated RBC % Seg Neutrophils # Seg Neutrophils # Man 14.4 H Lymphocytes # (Manual) 0.6 L Monocytes # (Manual) Eosinophils # (Manual) Basophils # (Manual) PT INR Fibrinogen dRVVT Confirm Interp Factor V Activity POC ABG pH POC ABG pCO2 POC ABG pO2 ABG pO2 ABG HCO3 ABG Base Excess ABG Hemoglobin Oxyhemoglobin Sodium Potassium Chloride Carbon Dioxide 21 L BUN 93 H Creatinine 2.9 H Glucose 146 H POC Glucose 188 H Lactic Acid Calcium 8.1 L Phosphorus Magnesium Direct Bilirubin AST ALT Alkaline Phosphatase Lactate Dehydrogenase Troponin T C-Reactive Protein Total Protein Albumin Prealbumin Triglycerides Cholesterol LDL Cholesterol Direct HDL Cholesterol Urine pH Urine WBC (Auto) Urine Creatinine Urine Total Protein Fluid Total Protein Vancomycin Trough Rheumatoid Factor Complement C4 Miscellaneous Test Crossmatch 09/10/16 09/10/16 09/10/16 13:17 17:20 23:32 WBC RBC Hgb Hct MCV MCH MCHC RDW Plt Count Lymph % (Auto) [place] % (Auto) Lymph # [place] # Baso # Seg Neutrophils % Seg Neuts % (Manual) Lymphocytes % (Manual) Monocytes % (Manual) Eosinophils % (Manual) Basophils % (Manual) Nucleated RBC % Seg Neutrophils # Seg Neutrophils # Man Lymphocytes # (Manual) Monocytes # (Manual) Eosinophils # (Manual) Basophils # (Manual) PT INR Fibrinogen dRVVT Confirm Interp Factor V Activity POC ABG pH POC ABG pCO2 POC ABG pO2 ABG pO2 ABG HCO3 ABG Base Excess ABG Hemoglobin Oxyhemoglobin Sodium Potassium Chloride Carbon Dioxide BUN Creatinine Glucose POC Glucose 199 H 186 H Lactic Acid Calcium Phosphorus Magnesium Direct Bilirubin AST ALT Alkaline Phosphatase Lactate Dehydrogenase Troponin T C-Reactive Protein Total Protein Albumin Prealbumin Triglycerides Cholesterol LDL Cholesterol Direct HDL Cholesterol Urine pH Urine WBC (Auto) Urine Creatinine Urine Total Protein Fluid Total Protein Vancomycin Trough Rheumatoid Factor Complement C4 Miscellaneous Test Crossmatch See Detail 09/11/16 09/11/16 09/11/16 05:10 05:10 05:17 WBC 28.4 H RBC Hgb 9.2 L Hct 29.3 L D MCV 73 L MCH 23 L MCHC RDW 18.9 H Plt Count 452 H Lymph % (Auto) [place] % (Auto) Lymph # [place]igg # Baso # Seg Neutrophils % Seg Neuts % (Manual) 89.5 H Lymphocytes % (Manual) 2.0 L Monocytes % (Manual) Eosinophils % (Manual) Basophils % (Manual) Nucleated RBC % Seg Neutrophils # Seg Neutrophils # Man 25.4 H Lymphocytes # (Manual) 0.6 L Monocytes # (Manual) 1.3 H Eosinophils # (Manual) Basophils # (Manual) PT INR Fibrinogen dRVVT Confirm Interp Factor V Activity POC ABG pH POC ABG pCO2 POC ABG pO2 ABG pO2 ABG HCO3 ABG Base Excess ABG Hemoglobin Oxyhemoglobin Sodium 136 L Potassium Chloride Carbon Dioxide 18 L BUN 107 H Creatinine 2.6 H Glucose 187 H POC Glucose 230 H Lactic Acid Calcium 8.3 L Phosphorus Magnesium Direct Bilirubin AST ALT Alkaline Phosphatase Lactate Dehydrogenase Troponin T C-Reactive Protein Total Protein Albumin Prealbumin Triglycerides Cholesterol LDL Cholesterol Direct HDL Cholesterol Urine pH Urine WBC (Auto) Urine Creatinine Urine Total Protein Fluid Total Protein Vancomycin Trough Rheumatoid Factor Complement C4 Miscellaneous Test Crossmatch 09/11/16 09/11/16 09/11/16 05:55 12:02 17:32 WBC RBC Hgb Hct MCV MCH MCHC RDW Plt Count Lymph % (Auto) [place] % (Auto) Lymph # Trigg # Baso # Seg Neutrophils % Seg Neuts % (Manual) Lymphocytes % (Manual) Monocytes % (Manual) Eosinophils % (Manual) Basophils % (Manual) Nucleated RBC % Seg Neutrophils # Seg Neutrophils # Man Lymphocytes # (Manual) Monocytes # (Manual) Eosinophils # (Manual) Basophils # (Manual) PT INR Fibrinogen dRVVT Confirm Interp Factor V Activity POC ABG pH POC ABG pCO2 33.8 L POC ABG pO2 ABG pO2 ABG HCO3 ABG Base Excess ABG Hemoglobin Oxyhemoglobin Sodium Potassium Chloride Carbon Dioxide BUN Creatinine Glucose POC Glucose 191 H 239 H Lactic Acid Calcium Phosphorus Magnesium Direct Bilirubin AST ALT Alkaline Phosphatase Lactate Dehydrogenase Troponin T C-Reactive Protein Total Protein Albumin Prealbumin Triglycerides Cholesterol LDL Cholesterol Direct HDL Cholesterol Urine pH Urine WBC (Auto) Urine Creatinine Urine Total Protein Fluid Total Protein Vancomycin Trough Rheumatoid Factor Complement C4 Miscellaneous Test Crossmatch 09/11/16 09/12/16 09/12/16 23:52 05:09 05:32 WBC RBC Hgb Hct MCV MCH MCHC RDW Plt Count Lymph % (Auto) [place] % (Auto) Lymph # Trigg # Baso # Seg Neutrophils % Seg Neuts % (Manual) Lymphocytes % (Manual) Monocytes % (Manual) Eosinophils % (Manual) Basophils % (Manual) Nucleated RBC % Seg Neutrophils # Seg Neutrophils # Man Lymphocytes # (Manual) Monocytes # (Manual) Eosinophils # (Manual) Basophils # (Manual) PT INR Fibrinogen dRVVT Confirm Interp Factor V Activity POC ABG pH POC ABG pCO2 34.6 L POC ABG pO2 ABG pO2 ABG HCO3 ABG Base Excess ABG Hemoglobin Oxyhemoglobin Sodium Potassium Chloride Carbon Dioxide BUN Creatinine Glucose POC Glucose 265 H 184 H Lactic Acid Calcium Phosphorus Magnesium Direct Bilirubin AST ALT Alkaline Phosphatase Lactate Dehydrogenase Troponin T C-Reactive Protein Total Protein Albumin Prealbumin Triglycerides Cholesterol LDL Cholesterol Direct HDL Cholesterol Urine pH Urine WBC (Auto) Urine Creatinine Urine Total Protein Fluid Total Protein Vancomycin Trough Rheumatoid Factor Complement C4 Miscellaneous Test Crossmatch 09/12/16 09/12/16 09/12/16 06:45 06:45 07:22 WBC 31.7 H RBC 3.54 L Hgb 8.3 L Hct 25.9 L MCV 73 L MCH 23 L MCHC RDW 18.9 H Plt Count Lymph % (Auto) [place] % (Auto) Lymph # [place]igg # Baso # Seg Neutrophils % Seg Neuts % (Manual) 88.5 H Lymphocytes % (Manual) 4.5 L Monocytes % (Manual) Eosinophils % (Manual) Basophils % (Manual) Nucleated RBC % Seg Neutrophils # Seg Neutrophils # Man 28.1 H Lymphocytes # (Manual) Monocytes # (Manual) 1.0 H Eosinophils # (Manual) Basophils # (Manual) PT INR Fibrinogen dRVVT Confirm Interp Factor V Activity POC ABG pH POC ABG pCO2 POC ABG pO2 ABG pO2 ABG HCO3 ABG Base Excess ABG Hemoglobin Oxyhemoglobin Sodium Potassium Chloride Carbon Dioxide 20 L BUN 115 H Creatinine 2.7 H Glucose 165 H POC Glucose Lactic Acid Calcium 8.0 L Phosphorus Magnesium Direct Bilirubin AST ALT Alkaline Phosphatase Lactate Dehydrogenase Troponin T C-Reactive Protein Total Protein Albumin Prealbumin Triglycerides 217 H Cholesterol LDL Cholesterol Direct HDL Cholesterol Urine pH Urine WBC (Auto) Urine Creatinine Urine Total Protein Fluid Total Protein Vancomycin Trough Rheumatoid Factor Complement C4 Miscellaneous Test Crossmatch 09/12/16 09/12/16 09/12/16 07:22 09:59 12:21 WBC RBC Hgb Hct MCV MCH MCHC RDW Plt Count Lymph % (Auto) [place] % (Auto) Lymph # [place]igg # Baso # Seg Neutrophils % Seg Neuts % (Manual) Lymphocytes % (Manual) Monocytes % (Manual) Eosinophils % (Manual) Basophils % (Manual) Nucleated RBC % Seg Neutrophils # Seg Neutrophils # Man Lymphocytes # (Manual) Monocytes # (Manual) Eosinophils # (Manual) Basophils # (Manual) PT INR Fibrinogen dRVVT Confirm Interp Positive H Factor V Activity POC ABG pH POC ABG pCO2 POC ABG pO2 ABG pO2 ABG HCO3 ABG Base Excess ABG Hemoglobin Oxyhemoglobin Sodium Potassium Chloride Carbon Dioxide BUN Creatinine Glucose POC Glucose 224 H Lactic Acid Calcium Phosphorus Magnesium Direct Bilirubin AST ALT Alkaline Phosphatase Lactate Dehydrogenase Troponin T C-Reactive Protein 1.70 H Total Protein Albumin Prealbumin Triglycerides Cholesterol LDL Cholesterol Direct HDL Cholesterol Urine pH Urine WBC (Auto) Urine Creatinine Urine Total Protein Fluid Total Protein Vancomycin Trough Rheumatoid Factor Complement C4 Miscellaneous Test Crossmatch 09/12/16 09/12/16 09/13/16 16:51 23:28 04:00 WBC 45.0 H* RBC Hgb 9.4 L Hct MCV 75 L MCH 23 L MCHC RDW 19.0 H Plt Count 470 H Lymph % (Auto) [place] % (Auto) Lymph # [place]igg # Baso # Seg Neutrophils % Seg Neuts % (Manual) 89.0 H Lymphocytes % (Manual) 5.0 L Monocytes % (Manual) Eosinophils % (Manual) Basophils % (Manual) Nucleated RBC % Seg Neutrophils # Seg Neutrophils # Man 40.1 H Lymphocytes # (Manual) Monocytes # (Manual) Eosinophils # (Manual) Basophils # (Manual) PT INR Fibrinogen dRVVT Confirm Interp Factor V Activity POC ABG pH POC ABG pCO2 POC ABG pO2 ABG pO2 ABG HCO3 ABG Base Excess ABG Hemoglobin Oxyhemoglobin Sodium Potassium Chloride Carbon Dioxide BUN Creatinine Glucose POC Glucose 169 H 150 H Lactic Acid Calcium Phosphorus Magnesium Direct Bilirubin AST ALT Alkaline Phosphatase Lactate Dehydrogenase Troponin T C-Reactive Protein Total Protein Albumin Prealbumin Triglycerides Cholesterol LDL Cholesterol Direct HDL Cholesterol Urine pH Urine WBC (Auto) Urine Creatinine Urine Total Protein Fluid Total Protein Vancomycin Trough Rheumatoid Factor Complement C4 Miscellaneous Test Crossmatch 09/13/16 09/13/16 09/13/16 04:00 11:26 17:31 WBC RBC Hgb Hct MCV MCH MCHC RDW Plt Count Lymph % (Auto) [place] % (Auto) Lymph # Trigg # Baso # Seg Neutrophils % Seg Neuts % (Manual) Lymphocytes % (Manual) Monocytes % (Manual) Eosinophils % (Manual) Basophils % (Manual) Nucleated RBC % Seg Neutrophils # Seg Neutrophils # Man Lymphocytes # (Manual) Monocytes # (Manual) Eosinophils # (Manual) Basophils # (Manual) PT INR Fibrinogen dRVVT Confirm Interp Factor V Activity POC ABG pH POC ABG pCO2 POC ABG pO2 ABG pO2 ABG HCO3 ABG Base Excess ABG Hemoglobin Oxyhemoglobin Sodium Potassium Chloride Carbon Dioxide 20 L BUN 116 H Creatinine 3.0 H Glucose 172 H POC Glucose 140 H 183 H Lactic Acid Calcium Phosphorus Magnesium Direct Bilirubin AST ALT Alkaline Phosphatase Lactate Dehydrogenase Troponin T C-Reactive Protein Total Protein 6.2 L Albumin 2.9 L Prealbumin Triglycerides Cholesterol LDL Cholesterol Direct HDL Cholesterol Urine pH Urine WBC (Auto) Urine Creatinine Urine Total Protein Fluid Total Protein Vancomycin Trough Rheumatoid Factor Complement C4 Miscellaneous Test Crossmatch 09/13/16 09/14/16 09/14/16 23:23 04:06 04:07 WBC 29.4 H RBC Hgb 8.9 L Hct 27.3 L MCV 75 L MCH 24 L MCHC RDW 19.1 H Plt Count Lymph % (Auto) [place] % (Auto) Lymph # Trigg # Baso # Seg Neutrophils % Seg Neuts % (Manual) 84.0 H Lymphocytes % (Manual) 6.0 L Monocytes % (Manual) 9.0 H Eosinophils % (Manual) Basophils % (Manual) Nucleated RBC % Seg Neutrophils # Seg Neutrophils # Man 24.7 H Lymphocytes # (Manual) Monocytes # (Manual) 2.6 H Eosinophils # (Manual) Basophils # (Manual) PT INR Fibrinogen dRVVT Confirm Interp Factor V Activity POC ABG pH 7.342 L POC ABG pCO2 POC ABG pO2 116 H ABG pO2 ABG HCO3 ABG Base Excess ABG Hemoglobin Oxyhemoglobin Sodium Potassium Chloride Carbon Dioxide BUN Creatinine Glucose POC Glucose 154 H Lactic Acid Calcium Phosphorus Magnesium Direct Bilirubin AST ALT Alkaline Phosphatase Lactate Dehydrogenase Troponin T C-Reactive Protein Total Protein Albumin Prealbumin Triglycerides Cholesterol LDL Cholesterol Direct HDL Cholesterol Urine pH Urine WBC (Auto) Urine Creatinine Urine Total Protein Fluid Total Protein Vancomycin Trough Rheumatoid Factor Complement C4 Miscellaneous Test Crossmatch 09/14/16 09/14/16 09/14/16 04:07 05:29 12:19 WBC RBC Hgb Hct MCV MCH MCHC RDW Plt Count Lymph % (Auto) [place] % (Auto) Lymph # [place] # Baso # Seg Neutrophils % Seg Neuts % (Manual) Lymphocytes % (Manual) Monocytes % (Manual) Eosinophils % (Manual) Basophils % (Manual) Nucleated RBC % Seg Neutrophils # Seg Neutrophils # Man Lymphocytes # (Manual) Monocytes # (Manual) Eosinophils # (Manual) Basophils # (Manual) PT INR Fibrinogen dRVVT Confirm Interp Factor V Activity POC ABG pH POC ABG pCO2 POC ABG pO2 ABG pO2 ABG HCO3 ABG Base Excess ABG Hemoglobin Oxyhemoglobin Sodium 136 L Potassium Chloride Carbon Dioxide 18 L BUN 121 H Creatinine 2.8 H Glucose 214 H POC Glucose 239 H 181 H Lactic Acid Calcium Phosphorus Magnesium Direct Bilirubin AST ALT Alkaline Phosphatase Lactate Dehydrogenase Troponin T C-Reactive Protein Total Protein Albumin Prealbumin Triglycerides Cholesterol LDL Cholesterol Direct HDL Cholesterol Urine pH Urine WBC (Auto) Urine Creatinine Urine Total Protein Fluid Total Protein Vancomycin Trough Rheumatoid Factor Complement C4 Miscellaneous Test Crossmatch 09/14/16 09/14/16 09/15/16 18:12 23:37 05:00 WBC 26.1 H RBC 3.05 L Hgb 7.2 L Hct 22.9 L MCV 75 L MCH 24 L MCHC RDW 19.0 H Plt Count Lymph % (Auto) [place] % (Auto) Lymph # [place]igg # Baso # Seg Neutrophils % Seg Neuts % (Manual) Lymphocytes % (Manual) Monocytes % (Manual) Eosinophils % (Manual) Basophils % (Manual) Nucleated RBC % Seg Neutrophils # Seg Neutrophils # Man Lymphocytes # (Manual) Monocytes # (Manual) Eosinophils # (Manual) Basophils # (Manual) PT INR Fibrinogen dRVVT Confirm Interp Factor V Activity POC ABG pH POC ABG pCO2 POC ABG pO2 ABG pO2 ABG HCO3 ABG Base Excess ABG Hemoglobin Oxyhemoglobin Sodium Potassium Chloride Carbon Dioxide BUN Creatinine Glucose POC Glucose 266 H 154 H Lactic Acid Calcium Phosphorus Magnesium Direct Bilirubin AST ALT Alkaline Phosphatase Lactate Dehydrogenase Troponin T C-Reactive Protein Total Protein Albumin Prealbumin Triglycerides Cholesterol LDL Cholesterol Direct HDL Cholesterol Urine pH Urine WBC (Auto) Urine Creatinine Urine Total Protein Fluid Total Protein Vancomycin Trough Rheumatoid Factor Complement C4 Miscellaneous Test Crossmatch 09/15/16 09/15/16 09/15/16 05:00 05:17 12:45 WBC RBC Hgb Hct MCV MCH MCHC RDW Plt Count Lymph % (Auto) [place] % (Auto) Lymph # [place]igg # Baso # Seg Neutrophils % Seg Neuts % (Manual) Lymphocytes % (Manual) Monocytes % (Manual) Eosinophils % (Manual) Basophils % (Manual) Nucleated RBC % Seg Neutrophils # Seg Neutrophils # Man Lymphocytes # (Manual) Monocytes # (Manual) Eosinophils # (Manual) Basophils # (Manual) PT INR Fibrinogen dRVVT Confirm Interp Factor V Activity POC ABG pH POC ABG pCO2 POC ABG pO2 ABG pO2 ABG HCO3 ABG Base Excess ABG Hemoglobin Oxyhemoglobin Sodium Potassium 5.2 H Chloride Carbon Dioxide 18 L BUN 139 H Creatinine 3.7 H Glucose 227 H POC Glucose 226 H 244 H Lactic Acid Calcium 8.3 L Phosphorus Magnesium Direct Bilirubin AST ALT Alkaline Phosphatase Lactate Dehydrogenase Troponin T C-Reactive Protein Total Protein Albumin Prealbumin Triglycerides Cholesterol LDL Cholesterol Direct HDL Cholesterol Urine pH Urine WBC (Auto) Urine Creatinine Urine Total Protein Fluid Total Protein Vancomycin Trough Rheumatoid Factor Complement C4 Miscellaneous Test Crossmatch 09/15/16 09/15/16 09/15/16 14:32 17:33 23:35 WBC RBC Hgb Hct MCV MCH MCHC RDW Plt Count Lymph % (Auto) [place] % (Auto) Lymph # [place] # Baso # Seg Neutrophils % Seg Neuts % (Manual) Lymphocytes % (Manual) Monocytes % (Manual) Eosinophils % (Manual) Basophils % (Manual) Nucleated RBC % Seg Neutrophils # Seg Neutrophils # Man Lymphocytes # (Manual) Monocytes # (Manual) Eosinophils # (Manual) Basophils # (Manual) PT INR Fibrinogen dRVVT Confirm Interp Factor V Activity POC ABG pH POC ABG pCO2 27.7 L POC ABG pO2 120 H ABG pO2 ABG HCO3 ABG Base Excess ABG Hemoglobin Oxyhemoglobin Sodium Potassium Chloride Carbon Dioxide BUN Creatinine Glucose POC Glucose 232 H 167 H Lactic Acid Calcium Phosphorus Magnesium Direct Bilirubin AST ALT Alkaline Phosphatase Lactate Dehydrogenase Troponin T C-Reactive Protein Total Protein Albumin Prealbumin Triglycerides Cholesterol LDL Cholesterol Direct HDL Cholesterol Urine pH Urine WBC (Auto) Urine Creatinine Urine Total Protein Fluid Total Protein Vancomycin Trough Rheumatoid Factor Complement C4 Miscellaneous Test Crossmatch 09/16/16 09/16/16 09/16/16 03:58 10:27 10:27 WBC 19.0 H RBC 2.77 L Hgb 6.5 L Hct 20.9 L MCV 76 L MCH 23 L MCHC RDW 19.3 H Plt Count Lymph % (Auto) 11.0 L [place] % (Auto) Lymph # Trigg # 1.1 H Baso # Seg Neutrophils % 82.5 H Seg Neuts % (Manual) Lymphocytes % (Manual) Monocytes % (Manual) Eosinophils % (Manual) Basophils % (Manual) Nucleated RBC % Seg Neutrophils # 15.7 H Seg Neutrophils # Man Lymphocytes # (Manual) Monocytes # (Manual) Eosinophils # (Manual) Basophils # (Manual) PT INR Fibrinogen dRVVT Confirm Interp Factor V Activity POC ABG pH POC ABG pCO2 POC ABG pO2 ABG pO2 ABG HCO3 ABG Base Excess ABG Hemoglobin Oxyhemoglobin Sodium Potassium Chloride 109.3 H Carbon Dioxide 18 L BUN 139 H Creatinine 4.1 H Glucose 144 H POC Glucose 146 H Lactic Acid Calcium 8.1 L Phosphorus Magnesium Direct Bilirubin AST ALT Alkaline Phosphatase Lactate Dehydrogenase Troponin T C-Reactive Protein Total Protein Albumin Prealbumin Triglycerides Cholesterol LDL Cholesterol Direct HDL Cholesterol Urine pH Urine WBC (Auto) Urine Creatinine Urine Total Protein Fluid Total Protein Vancomycin Trough Rheumatoid Factor Complement C4 Miscellaneous Test Crossmatch 09/16/16 09/16/16 09/16/16 12:04 12:10 13:55 WBC RBC Hgb Hct MCV MCH MCHC RDW Plt Count Lymph % (Auto) Trigg % (Auto) Lymph # Trigg # Baso # Seg Neutrophils % Seg Neuts % (Manual) Lymphocytes % (Manual) Monocytes % (Manual) Eosinophils % (Manual) Basophils % (Manual) Nucleated RBC % Seg Neutrophils # Seg Neutrophils # Man Lymphocytes # (Manual) Monocytes # (Manual) Eosinophils # (Manual) Basophils # (Manual) PT INR Fibrinogen dRVVT Confirm Interp Factor V Activity POC ABG pH POC ABG pCO2 32.9 L POC ABG pO2 ABG pO2 ABG HCO3 ABG Base Excess ABG Hemoglobin Oxyhemoglobin Sodium Potassium Chloride Carbon Dioxide BUN Creatinine Glucose POC Glucose 185 H Lactic Acid Calcium Phosphorus Magnesium Direct Bilirubin AST ALT Alkaline Phosphatase Lactate Dehydrogenase Troponin T C-Reactive Protein Total Protein Albumin Prealbumin Triglycerides Cholesterol LDL Cholesterol Direct HDL Cholesterol Urine pH Urine WBC (Auto) Urine Creatinine Urine Total Protein Fluid Total Protein Vancomycin Trough Rheumatoid Factor Complement C4 Miscellaneous Test Crossmatch See Detail 09/16/16 09/16/16 09/16/16 17:55 19:19 23:48 WBC RBC Hgb Hct MCV MCH MCHC RDW Plt Count Lymph % (Auto) Tr[place] % (Auto) Lymph # Trigg # Baso # Seg Neutrophils % Seg Neuts % (Manual) Lymphocytes % (Manual) Monocytes % (Manual) Eosinophils % (Manual) Basophils % (Manual) Nucleated RBC % Seg Neutrophils # Seg Neutrophils # Man Lymphocytes # (Manual) Monocytes # (Manual) Eosinophils # (Manual) Basophils # (Manual) PT INR Fibrinogen dRVVT Confirm Interp Factor V Activity POC ABG pH POC ABG pCO2 POC ABG pO2 ABG pO2 ABG HCO3 ABG Base Excess ABG Hemoglobin Oxyhemoglobin Sodium Potassium Chloride Carbon Dioxide BUN Creatinine Glucose POC Glucose 222 H 107 H Lactic Acid Calcium Phosphorus Magnesium Direct Bilirubin AST ALT Alkaline Phosphatase Lactate Dehydrogenase Troponin T C-Reactive Protein Total Protein Albumin Prealbumin Triglycerides Cholesterol LDL Cholesterol Direct HDL Cholesterol Urine pH Urine WBC (Auto) Urine Creatinine 47.4 H Urine Total Protein 16 H Fluid Total Protein Vancomycin Trough Rheumatoid Factor Complement C4 Miscellaneous Test Crossmatch 09/17/16 09/17/16 09/17/16 03:45 03:45 04:55 WBC 19.6 H RBC 3.41 L Hgb 8.5 L Hct 26.7 L MCV 78 L MCH 25 L MCHC RDW 19.9 H Plt Count Lymph % (Auto) 9.3 L [place] % (Auto) Lymph # Trigg # 1.2 H Baso # Seg Neutrophils % 83.9 H Seg Neuts % (Manual) Lymphocytes % (Manual) Monocytes % (Manual) Eosinophils % (Manual) Basophils % (Manual) Nucleated RBC % Seg Neutrophils # 16.4 H Seg Neutrophils # Man Lymphocytes # (Manual) Monocytes # (Manual) Eosinophils # (Manual) Basophils # (Manual) PT INR Fibrinogen dRVVT Confirm Interp Factor V Activity POC ABG pH POC ABG pCO2 POC ABG pO2 ABG pO2 ABG HCO3 ABG Base Excess ABG Hemoglobin Oxyhemoglobin Sodium 146 H Potassium 5.1 H Chloride 110.9 H Carbon Dioxide 16 L BUN 146 H Creatinine 4.0 H Glucose 108 H POC Glucose 133 H Lactic Acid Calcium Phosphorus Magnesium 3.00 H Direct Bilirubin AST ALT Alkaline Phosphatase Lactate Dehydrogenase Troponin T C-Reactive Protein Total Protein Albumin Prealbumin Triglycerides Cholesterol LDL Cholesterol Direct HDL Cholesterol Urine pH Urine WBC (Auto) Urine Creatinine Urine Total Protein Fluid Total Protein Vancomycin Trough Rheumatoid Factor Complement C4 Miscellaneous Test Crossmatch 09/17/16 09/17/16 09/17/16 11:15 17:33 23:47 WBC RBC Hgb Hct MCV MCH MCHC RDW Plt Count Lymph % (Auto) [place] % (Auto) Lymph # [place]igg # Baso # Seg Neutrophils % Seg Neuts % (Manual) Lymphocytes % (Manual) Monocytes % (Manual) Eosinophils % (Manual) Basophils % (Manual) Nucleated RBC % Seg Neutrophils # Seg Neutrophils # Man Lymphocytes # (Manual) Monocytes # (Manual) Eosinophils # (Manual) Basophils # (Manual) PT INR Fibrinogen dRVVT Confirm Interp Factor V Activity POC ABG pH POC ABG pCO2 POC ABG pO2 ABG pO2 ABG HCO3 ABG Base Excess ABG Hemoglobin Oxyhemoglobin Sodium Potassium Chloride Carbon Dioxide BUN Creatinine Glucose POC Glucose 176 H 246 H 148 H Lactic Acid Calcium Phosphorus Magnesium Direct Bilirubin AST ALT Alkaline Phosphatase Lactate Dehydrogenase Troponin T C-Reactive Protein Total Protein Albumin Prealbumin Triglycerides Cholesterol LDL Cholesterol Direct HDL Cholesterol Urine pH Urine WBC (Auto) Urine Creatinine Urine Total Protein Fluid Total Protein Vancomycin Trough Rheumatoid Factor Complement C4 Miscellaneous Test Crossmatch 09/18/16 09/18/16 09/18/16 05:33 08:31 08:31 WBC 18.0 H RBC 3.17 L Hgb 9.0 L Hct 25.7 L MCV MCH MCHC 35 H RDW 20.4 H Plt Count Lymph % (Auto) [place] % (Auto) Lymph # [place]igg # Baso # Seg Neutrophils % Seg Neuts % (Manual) Lymphocytes % (Manual) Monocytes % (Manual) Eosinophils % (Manual) Basophils % (Manual) Nucleated RBC % Seg Neutrophils # Seg Neutrophils # Man Lymphocytes # (Manual) Monocytes # (Manual) Eosinophils # (Manual) Basophils # (Manual) PT INR Fibrinogen dRVVT Confirm Interp Factor V Activity POC ABG pH POC ABG pCO2 POC ABG pO2 ABG pO2 ABG HCO3 ABG Base Excess ABG Hemoglobin Oxyhemoglobin Sodium Potassium Chloride Carbon Dioxide 15 L BUN 124 H Creatinine 3.8 H Glucose POC Glucose 120 H Lactic Acid Calcium 8.1 L Phosphorus Magnesium Direct Bilirubin AST ALT Alkaline Phosphatase Lactate Dehydrogenase Troponin T C-Reactive Protein Total Protein Albumin Prealbumin Triglycerides Cholesterol LDL Cholesterol Direct HDL Cholesterol Urine pH Urine WBC (Auto) Urine Creatinine Urine Total Protein Fluid Total Protein Vancomycin Trough Rheumatoid Factor Complement C4 Miscellaneous Test Crossmatch 09/18/16 09/18/16 09/18/16 12:03 15:34 17:50 WBC RBC Hgb Hct MCV MCH MCHC RDW Plt Count Lymph % (Auto) [place] % (Auto) Lymph # [place]igg # Baso # Seg Neutrophils % Seg Neuts % (Manual) Lymphocytes % (Manual) Monocytes % (Manual) Eosinophils % (Manual) Basophils % (Manual) Nucleated RBC % Seg Neutrophils # Seg Neutrophils # Man Lymphocytes # (Manual) Monocytes # (Manual) Eosinophils # (Manual) Basophils # (Manual) PT INR Fibrinogen dRVVT Confirm Interp Factor V Activity POC ABG pH POC ABG pCO2 25.7 L POC ABG pO2 66 L ABG pO2 ABG HCO3 ABG Base Excess ABG Hemoglobin Oxyhemoglobin Sodium Potassium Chloride Carbon Dioxide BUN Creatinine Glucose POC Glucose 156 H 220 H Lactic Acid Calcium Phosphorus Magnesium Direct Bilirubin AST ALT Alkaline Phosphatase Lactate Dehydrogenase Troponin T C-Reactive Protein Total Protein Albumin Prealbumin Triglycerides Cholesterol LDL Cholesterol Direct HDL Cholesterol Urine pH Urine WBC (Auto) Urine Creatinine Urine Total Protein Fluid Total Protein Vancomycin Trough Rheumatoid Factor Complement C4 Miscellaneous Test Crossmatch 09/19/16 09/19/16 09/19/16 06:21 09:50 09:50 WBC 17.1 H RBC 3.49 L Hgb 9.0 L Hct 28.1 L MCV MCH 26 L MCHC RDW 20.8 H Plt Count Lymph % (Auto) 11.5 L [place] % (Auto) 7.5 H Lymph # Trigg # 1.3 H Baso # Seg Neutrophils % 79.8 H Seg Neuts % (Manual) Lymphocytes % (Manual) Monocytes % (Manual) Eosinophils % (Manual) Basophils % (Manual) Nucleated RBC % Seg Neutrophils # 13.7 H Seg Neutrophils # Man Lymphocytes # (Manual) Monocytes # (Manual) Eosinophils # (Manual) Basophils # (Manual) PT INR Fibrinogen dRVVT Confirm Interp Factor V Activity POC ABG pH POC ABG pCO2 POC ABG pO2 ABG pO2 ABG HCO3 ABG Base Excess ABG Hemoglobin Oxyhemoglobin Sodium Potassium Chloride 108.6 H Carbon Dioxide 15 L BUN 125 H Creatinine 4.1 H Glucose 124 H POC Glucose 119 H Lactic Acid Calcium Phosphorus Magnesium Direct Bilirubin AST ALT Alkaline Phosphatase Lactate Dehydrogenase Troponin T C-Reactive Protein Total Protein Albumin Prealbumin Triglycerides Cholesterol LDL Cholesterol Direct HDL Cholesterol Urine pH Urine WBC (Auto) Urine Creatinine Urine Total Protein Fluid Total Protein Vancomycin Trough Rheumatoid Factor Complement C4 Miscellaneous Test Crossmatch 09/19/16 09/19/16 09/19/16 11:25 17:53 23:36 WBC RBC Hgb Hct MCV MCH MCHC RDW Plt Count Lymph % (Auto) [place] % (Auto) Lymph # [place]igg # Baso # Seg Neutrophils % Seg Neuts % (Manual) Lymphocytes % (Manual) Monocytes % (Manual) Eosinophils % (Manual) Basophils % (Manual) Nucleated RBC % Seg Neutrophils # Seg Neutrophils # Man Lymphocytes # (Manual) Monocytes # (Manual) Eosinophils # (Manual) Basophils # (Manual) PT INR Fibrinogen dRVVT Confirm Interp Factor V Activity POC ABG pH POC ABG pCO2 POC ABG pO2 ABG pO2 ABG HCO3 ABG Base Excess ABG Hemoglobin Oxyhemoglobin Sodium Potassium Chloride Carbon Dioxide BUN Creatinine Glucose POC Glucose 160 H 245 H 121 H Lactic Acid Calcium Phosphorus Magnesium Direct Bilirubin AST ALT Alkaline Phosphatase Lactate Dehydrogenase Troponin T C-Reactive Protein Total Protein Albumin Prealbumin Triglycerides Cholesterol LDL Cholesterol Direct HDL Cholesterol Urine pH Urine WBC (Auto) Urine Creatinine Urine Total Protein Fluid Total Protein Vancomycin Trough Rheumatoid Factor Complement C4 Miscellaneous Test Crossmatch 09/20/16 09/20/16 09/20/16 04:10 04:10 04:10 WBC 17.0 H RBC 3.21 L Hgb 8.2 L Hct 25.5 L MCV MCH 26 L MCHC RDW 20.9 H Plt Count Lymph % (Auto) [place] % (Auto) Lymph # [place] # Baso # Seg Neutrophils % Seg Neuts % (Manual) Lymphocytes % (Manual) Monocytes % (Manual) Eosinophils % (Manual) Basophils % (Manual) Nucleated RBC % Seg Neutrophils # Seg Neutrophils # Man Lymphocytes # (Manual) Monocytes # (Manual) Eosinophils # (Manual) Basophils # (Manual) PT INR Fibrinogen dRVVT Confirm Interp Factor V Activity POC ABG pH POC ABG pCO2 POC ABG pO2 ABG pO2 ABG HCO3 ABG Base Excess ABG Hemoglobin Oxyhemoglobin Sodium Potassium Chloride 111.0 H Carbon Dioxide 16 L BUN 129 H Creatinine 3.7 H Glucose 115 H POC Glucose Lactic Acid Calcium 8.2 L Phosphorus Magnesium Direct Bilirubin AST ALT Alkaline Phosphatase Lactate Dehydrogenase Troponin T C-Reactive Protein Total Protein Albumin Prealbumin Triglycerides 243 H Cholesterol LDL Cholesterol Direct HDL Cholesterol Urine pH Urine WBC (Auto) Urine Creatinine Urine Total Protein Fluid Total Protein Vancomycin Trough Rheumatoid Factor Complement C4 Miscellaneous Test Crossmatch 09/20/16 09/20/16 09/20/16 05:40 11:52 16:50 WBC RBC Hgb Hct MCV MCH MCHC RDW Plt Count Lymph % (Auto) [place] % (Auto) Lymph # [place] # Baso # Seg Neutrophils % Seg Neuts % (Manual) Lymphocytes % (Manual) Monocytes % (Manual) Eosinophils % (Manual) Basophils % (Manual) Nucleated RBC % Seg Neutrophils # Seg Neutrophils # Man Lymphocytes # (Manual) Monocytes # (Manual) Eosinophils # (Manual) Basophils # (Manual) PT INR Fibrinogen dRVVT Confirm Interp Factor V Activity POC ABG pH POC ABG pCO2 POC ABG pO2 ABG pO2 ABG HCO3 ABG Base Excess ABG Hemoglobin Oxyhemoglobin Sodium Potassium Chloride Carbon Dioxide BUN Creatinine Glucose POC Glucose 131 H 183 H 236 H Lactic Acid Calcium Phosphorus Magnesium Direct Bilirubin AST ALT Alkaline Phosphatase Lactate Dehydrogenase Troponin T C-Reactive Protein Total Protein Albumin Prealbumin Triglycerides Cholesterol LDL Cholesterol Direct HDL Cholesterol Urine pH Urine WBC (Auto) Urine Creatinine Urine Total Protein Fluid Total Protein Vancomycin Trough Rheumatoid Factor Complement C4 Miscellaneous Test Crossmatch 09/20/16 09/21/16 09/21/16 23:51 03:30 04:44 WBC RBC Hgb Hct MCV MCH MCHC RDW Plt Count Lymph % (Auto) [place] % (Auto) Lymph # [place]igg # Baso # Seg Neutrophils % Seg Neuts % (Manual) Lymphocytes % (Manual) Monocytes % (Manual) Eosinophils % (Manual) Basophils % (Manual) Nucleated RBC % Seg Neutrophils # Seg Neutrophils # Man Lymphocytes # (Manual) Monocytes # (Manual) Eosinophils # (Manual) Basophils # (Manual) PT INR Fibrinogen dRVVT Confirm Interp Factor V Activity POC ABG pH POC ABG pCO2 POC ABG pO2 ABG pO2 ABG HCO3 ABG Base Excess ABG Hemoglobin Oxyhemoglobin Sodium Potassium Chloride Carbon Dioxide BUN Creatinine Glucose POC Glucose 114 H 141 H Lactic Acid Calcium Phosphorus Magnesium 2.70 H Direct Bilirubin AST ALT Alkaline Phosphatase Lactate Dehydrogenase Troponin T C-Reactive Protein Total Protein Albumin Prealbumin Triglycerides Cholesterol LDL Cholesterol Direct HDL Cholesterol Urine pH Urine WBC (Auto) Urine Creatinine Urine Total Protein Fluid Total Protein Vancomycin Trough Rheumatoid Factor Complement C4 Miscellaneous Test Crossmatch 09/21/16 09/21/16 09/21/16 07:45 07:45 10:01 WBC 13.8 H RBC 2.94 L Hgb 7.5 L Hct 23.5 L MCV MCH 26 L MCHC RDW 21.2 H Plt Count Lymph % (Auto) 6.9 L [place] % (Auto) 9.4 H Lymph # 0.9 L Trigg # 1.3 H Baso # Seg Neutrophils % 83.2 H Seg Neuts % (Manual) Lymphocytes % (Manual) Monocytes % (Manual) Eosinophils % (Manual) Basophils % (Manual) Nucleated RBC % Seg Neutrophils # 11.5 H Seg Neutrophils # Man Lymphocytes # (Manual) Monocytes # (Manual) Eosinophils # (Manual) Basophils # (Manual) PT INR Fibrinogen dRVVT Confirm Interp Factor V Activity POC ABG pH 7.308 L POC ABG pCO2 31.9 L POC ABG pO2 148 H ABG pO2 ABG HCO3 ABG Base Excess ABG Hemoglobin Oxyhemoglobin Sodium 147 H Potassium Chloride 114.2 H Carbon Dioxide 15 L BUN 120 H Creatinine 3.9 H Glucose 156 H POC Glucose Lactic Acid Calcium 8.2 L Phosphorus Magnesium Direct Bilirubin AST ALT Alkaline Phosphatase Lactate Dehydrogenase Troponin T C-Reactive Protein Total Protein Albumin Prealbumin Triglycerides Cholesterol LDL Cholesterol Direct HDL Cholesterol Urine pH Urine WBC (Auto) Urine Creatinine Urine Total Protein Fluid Total Protein Vancomycin Trough Rheumatoid Factor Complement C4 Miscellaneous Test Crossmatch 09/21/16 09/21/16 09/21/16 12:00 12:03 13:00 WBC RBC Hgb Hct MCV MCH MCHC RDW Plt Count Lymph % (Auto) [place] % (Auto) Lymph # Trigg # Baso # Seg Neutrophils % Seg Neuts % (Manual) Lymphocytes % (Manual) Monocytes % (Manual) Eosinophils % (Manual) Basophils % (Manual) Nucleated RBC % Seg Neutrophils # Seg Neutrophils # Man Lymphocytes # (Manual) Monocytes # (Manual) Eosinophils # (Manual) Basophils # (Manual) PT INR Fibrinogen dRVVT Confirm Interp Factor V Activity POC ABG pH POC ABG pCO2 POC ABG pO2 ABG pO2 ABG HCO3 ABG Base Excess ABG Hemoglobin Oxyhemoglobin Sodium Potassium Chloride Carbon Dioxide BUN Creatinine Glucose POC Glucose 163 H Lactic Acid Calcium Phosphorus Magnesium Direct Bilirubin AST ALT Alkaline Phosphatase Lactate Dehydrogenase Troponin T C-Reactive Protein Total Protein Albumin Prealbumin Triglycerides Cholesterol LDL Cholesterol Direct HDL Cholesterol Urine pH Urine WBC (Auto) Urine Creatinine 54.8 H Urine Total Protein Fluid Total Protein Vancomycin Trough 2.3 L Rheumatoid Factor Complement C4 Miscellaneous Test Crossmatch 09/21/16 09/21/16 09/22/16 16:51 23:17 06:27 WBC RBC Hgb Hct MCV MCH MCHC RDW Plt Count Lymph % (Auto) [place] % (Auto) Lymph # [place] # Baso # Seg Neutrophils % Seg Neuts % (Manual) Lymphocytes % (Manual) Monocytes % (Manual) Eosinophils % (Manual) Basophils % (Manual) Nucleated RBC % Seg Neutrophils # Seg Neutrophils # Man Lymphocytes # (Manual) Monocytes # (Manual) Eosinophils # (Manual) Basophils # (Manual) PT INR Fibrinogen dRVVT Confirm Interp Factor V Activity POC ABG pH POC ABG pCO2 POC ABG pO2 ABG pO2 ABG HCO3 ABG Base Excess ABG Hemoglobin Oxyhemoglobin Sodium Potassium Chloride Carbon Dioxide BUN Creatinine Glucose POC Glucose 206 H 114 H 115 H Lactic Acid Calcium Phosphorus Magnesium Direct Bilirubin AST ALT Alkaline Phosphatase Lactate Dehydrogenase Troponin T C-Reactive Protein Total Protein Albumin Prealbumin Triglycerides Cholesterol LDL Cholesterol Direct HDL Cholesterol Urine pH Urine WBC (Auto) Urine Creatinine Urine Total Protein Fluid Total Protein Vancomycin Trough Rheumatoid Factor Complement C4 Miscellaneous Test Crossmatch 09/22/16 09/22/16 09/22/16 07:50 07:50 12:00 WBC 17.8 H RBC 3.04 L Hgb 8.0 L Hct 24.7 L MCV MCH 26 L MCHC RDW 21.6 H Plt Count Lymph % (Auto) [place] % (Auto) Lymph # [place] # Baso # Seg Neutrophils % Seg Neuts % (Manual) Lymphocytes % (Manual) Monocytes % (Manual) Eosinophils % (Manual) Basophils % (Manual) Nucleated RBC % Seg Neutrophils # Seg Neutrophils # Man Lymphocytes # (Manual) Monocytes # (Manual) Eosinophils # (Manual) Basophils # (Manual) PT INR Fibrinogen dRVVT Confirm Interp Factor V Activity POC ABG pH POC ABG pCO2 POC ABG pO2 ABG pO2 ABG HCO3 ABG Base Excess ABG Hemoglobin Oxyhemoglobin Sodium 150 H Potassium Chloride 118.2 H Carbon Dioxide 14 L BUN 111 H Creatinine 3.7 H Glucose 157 H POC Glucose 183 H Lactic Acid Calcium Phosphorus Magnesium Direct Bilirubin AST ALT Alkaline Phosphatase Lactate Dehydrogenase Troponin T C-Reactive Protein Total Protein Albumin Prealbumin Triglycerides Cholesterol LDL Cholesterol Direct HDL Cholesterol Urine pH Urine WBC (Auto) Urine Creatinine Urine Total Protein Fluid Total Protein Vancomycin Trough Rheumatoid Factor Complement C4 Miscellaneous Test Crossmatch 09/22/16 09/22/16 09/23/16 17:29 23:10 05:00 WBC 19.2 H RBC 3.13 L Hgb 8.0 L Hct 25.2 L MCV MCH 26 L MCHC RDW 22.1 H Plt Count Lymph % (Auto) [place] % (Auto) Lymph # [place]igg # Baso # Seg Neutrophils % Seg Neuts % (Manual) 92.0 H Lymphocytes % (Manual) 3.0 L Monocytes % (Manual) Eosinophils % (Manual) Basophils % (Manual) Nucleated RBC % Seg Neutrophils # Seg Neutrophils # Man 17.7 H Lymphocytes # (Manual) 0.6 L Monocytes # (Manual) Eosinophils # (Manual) Basophils # (Manual) PT INR Fibrinogen dRVVT Confirm Interp Factor V Activity POC ABG pH POC ABG pCO2 POC ABG pO2 ABG pO2 ABG HCO3 ABG Base Excess ABG Hemoglobin Oxyhemoglobin Sodium Potassium Chloride Carbon Dioxide BUN Creatinine Glucose POC Glucose 197 H 169 H Lactic Acid Calcium Phosphorus Magnesium Direct Bilirubin AST ALT Alkaline Phosphatase Lactate Dehydrogenase Troponin T C-Reactive Protein Total Protein Albumin Prealbumin Triglycerides Cholesterol LDL Cholesterol Direct HDL Cholesterol Urine pH Urine WBC (Auto) Urine Creatinine Urine Total Protein Fluid Total Protein Vancomycin Trough Rheumatoid Factor Complement C4 Miscellaneous Test Crossmatch 09/23/16 09/23/16 09/23/16 05:00 05:00 05:10 WBC RBC Hgb Hct MCV MCH MCHC RDW Plt Count Lymph % (Auto) [place] % (Auto) Lymph # [place] # Baso # Seg Neutrophils % Seg Neuts % (Manual) Lymphocytes % (Manual) Monocytes % (Manual) Eosinophils % (Manual) Basophils % (Manual) Nucleated RBC % Seg Neutrophils # Seg Neutrophils # Man Lymphocytes # (Manual) Monocytes # (Manual) Eosinophils # (Manual) Basophils # (Manual) PT INR Fibrinogen dRVVT Confirm Interp Factor V Activity POC ABG pH POC ABG pCO2 POC ABG pO2 ABG pO2 ABG HCO3 ABG Base Excess ABG Hemoglobin Oxyhemoglobin Sodium 147 H Potassium 3.2 L Chloride 115.7 H Carbon Dioxide 13 L BUN 111 H Creatinine 3.8 H Glucose 194 H POC Glucose 188 H Lactic Acid Calcium 7.3 L D Phosphorus Magnesium Direct Bilirubin AST ALT Alkaline Phosphatase Lactate Dehydrogenase Troponin T C-Reactive Protein 3.20 H Total Protein Albumin Prealbumin Triglycerides Cholesterol LDL Cholesterol Direct HDL Cholesterol Urine pH Urine WBC (Auto) Urine Creatinine Urine Total Protein Fluid Total Protein Vancomycin Trough Rheumatoid Factor Complement C4 Miscellaneous Test Crossmatch 09/23/16 09/23/16 09/23/16 11:37 12:29 18:01 WBC RBC Hgb Hct MCV MCH MCHC RDW Plt Count Lymph % (Auto) [place] % (Auto) Lymph # [place] # Baso # Seg Neutrophils % Seg Neuts % (Manual) Lymphocytes % (Manual) Monocytes % (Manual) Eosinophils % (Manual) Basophils % (Manual) Nucleated RBC % Seg Neutrophils # Seg Neutrophils # Man Lymphocytes # (Manual) Monocytes # (Manual) Eosinophils # (Manual) Basophils # (Manual) PT INR Fibrinogen dRVVT Confirm Interp Factor V Activity POC ABG pH POC ABG pCO2 18.9 L POC ABG pO2 143 H ABG pO2 ABG HCO3 ABG Base Excess ABG Hemoglobin Oxyhemoglobin Sodium Potassium Chloride Carbon Dioxide BUN Creatinine Glucose POC Glucose 153 H 108 H Lactic Acid Calcium Phosphorus Magnesium Direct Bilirubin AST ALT Alkaline Phosphatase Lactate Dehydrogenase Troponin T C-Reactive Protein Total Protein Albumin Prealbumin Triglycerides Cholesterol LDL Cholesterol Direct HDL Cholesterol Urine pH Urine WBC (Auto) Urine Creatinine Urine Total Protein Fluid Total Protein Vancomycin Trough Rheumatoid Factor Complement C4 Miscellaneous Test Crossmatch 09/23/16 09/23/16 09/24/16 21:19 23:43 05:16 WBC RBC Hgb Hct MCV MCH MCHC RDW Plt Count Lymph % (Auto) [place] % (Auto) Lymph # [place] # Baso # Seg Neutrophils % Seg Neuts % (Manual) Lymphocytes % (Manual) Monocytes % (Manual) Eosinophils % (Manual) Basophils % (Manual) Nucleated RBC % Seg Neutrophils # Seg Neutrophils # Man Lymphocytes # (Manual) Monocytes # (Manual) Eosinophils # (Manual) Basophils # (Manual) PT INR Fibrinogen dRVVT Confirm Interp Factor V Activity POC ABG pH POC ABG pCO2 17.3 L POC ABG pO2 112 H ABG pO2 ABG HCO3 ABG Base Excess ABG Hemoglobin Oxyhemoglobin Sodium Potassium Chloride Carbon Dioxide BUN Creatinine Glucose POC Glucose 143 H 164 H Lactic Acid Calcium Phosphorus Magnesium Direct Bilirubin AST ALT Alkaline Phosphatase Lactate Dehydrogenase Troponin T C-Reactive Protein Total Protein Albumin Prealbumin Triglycerides Cholesterol LDL Cholesterol Direct HDL Cholesterol Urine pH Urine WBC (Auto) Urine Creatinine Urine Total Protein Fluid Total Protein Vancomycin Trough Rheumatoid Factor Complement C4 Miscellaneous Test Crossmatch 09/24/16 09/24/16 09/24/16 05:21 11:58 17:06 WBC RBC Hgb Hct MCV MCH MCHC RDW Plt Count Lymph % (Auto) [place] % (Auto) Lymph # [place] # Baso # Seg Neutrophils % Seg Neuts % (Manual) Lymphocytes % (Manual) Monocytes % (Manual) Eosinophils % (Manual) Basophils % (Manual) Nucleated RBC % Seg Neutrophils # Seg Neutrophils # Man Lymphocytes # (Manual) Monocytes # (Manual) Eosinophils # (Manual) Basophils # (Manual) PT INR Fibrinogen dRVVT Confirm Interp Factor V Activity POC ABG pH POC ABG pCO2 POC ABG pO2 ABG pO2 ABG HCO3 ABG Base Excess ABG Hemoglobin Oxyhemoglobin Sodium Potassium Chloride Carbon Dioxide 10 L BUN 103 H Creatinine 4.3 H Glucose 163 H POC Glucose 173 H 167 H Lactic Acid Calcium 6.5 L Phosphorus Magnesium Direct Bilirubin AST ALT Alkaline Phosphatase Lactate Dehydrogenase Troponin T C-Reactive Protein Total Protein Albumin Prealbumin Triglycerides Cholesterol LDL Cholesterol Direct HDL Cholesterol Urine pH Urine WBC (Auto) Urine Creatinine Urine Total Protein Fluid Total Protein Vancomycin Trough Rheumatoid Factor Complement C4 Miscellaneous Test Crossmatch 09/24/16 09/24/16 09/24/16 20:15 21:02 23:48 WBC RBC Hgb Hct MCV MCH MCHC RDW Plt Count Lymph % (Auto) [place] % (Auto) Lymph # [place] # Baso # Seg Neutrophils % Seg Neuts % (Manual) Lymphocytes % (Manual) Monocytes % (Manual) Eosinophils % (Manual) Basophils % (Manual) Nucleated RBC % Seg Neutrophils # Seg Neutrophils # Man Lymphocytes # (Manual) Monocytes # (Manual) Eosinophils # (Manual) Basophils # (Manual) PT INR Fibrinogen dRVVT Confirm Interp Factor V Activity POC ABG pH 7.288 L POC ABG pCO2 30.2 L 21.5 L POC ABG pO2 32 L 39 L ABG pO2 ABG HCO3 ABG Base Excess ABG Hemoglobin Oxyhemoglobin Sodium Potassium Chloride Carbon Dioxide BUN Creatinine Glucose POC Glucose 109 H Lactic Acid Calcium Phosphorus Magnesium Direct Bilirubin AST ALT Alkaline Phosphatase Lactate Dehydrogenase Troponin T C-Reactive Protein Total Protein Albumin Prealbumin Triglycerides Cholesterol LDL Cholesterol Direct HDL Cholesterol Urine pH Urine WBC (Auto) Urine Creatinine Urine Total Protein Fluid Total Protein Vancomycin Trough Rheumatoid Factor Complement C4 Miscellaneous Test Crossmatch 09/25/16 09/25/16 09/25/16 04:20 04:20 04:20 WBC RBC 2.58 L Hgb 7.0 L Hct 21.0 L MCV MCH 27 L MCHC RDW 23.8 H Plt Count Lymph % (Auto) [place] % (Auto) Lymph # [place]igg # Baso # Seg Neutrophils % Seg Neuts % (Manual) Lymphocytes % (Manual) 12.0 L Monocytes % (Manual) Eosinophils % (Manual) 7.0 H Basophils % (Manual) 2.0 H Nucleated RBC % Seg Neutrophils # Seg Neutrophils # Man Lymphocytes # (Manual) 0.9 L Monocytes # (Manual) Eosinophils # (Manual) 0.5 H Basophils # (Manual) PT INR Fibrinogen dRVVT Confirm Interp Factor V Activity POC ABG pH POC ABG pCO2 POC ABG pO2 ABG pO2 ABG HCO3 ABG Base Excess ABG Hemoglobin Oxyhemoglobin Sodium Potassium Chloride Carbon Dioxide 15 L BUN 72 H Creatinine 3.8 H Glucose POC Glucose Lactic Acid Calcium 6.0 L Phosphorus 4.60 H Magnesium 1.60 L Direct Bilirubin AST ALT Alkaline Phosphatase Lactate Dehydrogenase Troponin T C-Reactive Protein Total Protein Albumin Prealbumin Triglycerides Cholesterol LDL Cholesterol Direct HDL Cholesterol Urine pH Urine WBC (Auto) Urine Creatinine Urine Total Protein Fluid Total Protein Vancomycin Trough Rheumatoid Factor Complement C4 Miscellaneous Test Crossmatch 09/25/16 09/25/16 09/25/16 04:57 08:02 10:30 WBC RBC Hgb Hct MCV MCH MCHC RDW Plt Count Lymph % (Auto) [place] % (Auto) Lymph # Trigg # Baso # Seg Neutrophils % Seg Neuts % (Manual) Lymphocytes % (Manual) Monocytes % (Manual) Eosinophils % (Manual) Basophils % (Manual) Nucleated RBC % Seg Neutrophils # Seg Neutrophils # Man Lymphocytes # (Manual) Monocytes # (Manual) Eosinophils # (Manual) Basophils # (Manual) PT INR Fibrinogen dRVVT Confirm Interp Factor V Activity POC ABG pH POC ABG pCO2 24.7 L POC ABG pO2 152 H ABG pO2 ABG HCO3 ABG Base Excess ABG Hemoglobin Oxyhemoglobin Sodium Potassium Chloride Carbon Dioxide BUN Creatinine Glucose POC Glucose 113 H Lactic Acid Calcium Phosphorus Magnesium Direct Bilirubin AST ALT Alkaline Phosphatase Lactate Dehydrogenase Troponin T C-Reactive Protein Total Protein Albumin Prealbumin Triglycerides Cholesterol LDL Cholesterol Direct HDL Cholesterol Urine pH Urine WBC (Auto) Urine Creatinine Urine Total Protein Fluid Total Protein Vancomycin Trough Rheumatoid Factor Complement C4 Miscellaneous Test Crossmatch See Detail 09/25/16 09/25/16 09/25/16 12:05 17:44 23:47 WBC RBC Hgb Hct MCV MCH MCHC RDW Plt Count Lymph % (Auto) [place] % (Auto) Lymph # Trigg # Baso # Seg Neutrophils % Seg Neuts % (Manual) Lymphocytes % (Manual) Monocytes % (Manual) Eosinophils % (Manual) Basophils % (Manual) Nucleated RBC % Seg Neutrophils # Seg Neutrophils # Man Lymphocytes # (Manual) Monocytes # (Manual) Eosinophils # (Manual) Basophils # (Manual) PT INR Fibrinogen dRVVT Confirm Interp Factor V Activity POC ABG pH POC ABG pCO2 POC ABG pO2 ABG pO2 ABG HCO3 ABG Base Excess ABG Hemoglobin Oxyhemoglobin Sodium Potassium Chloride Carbon Dioxide BUN Creatinine Glucose POC Glucose 117 H 119 H 150 H Lactic Acid Calcium Phosphorus Magnesium Direct Bilirubin AST ALT Alkaline Phosphatase Lactate Dehydrogenase Troponin T C-Reactive Protein Total Protein Albumin Prealbumin Triglycerides Cholesterol LDL Cholesterol Direct HDL Cholesterol Urine pH Urine WBC (Auto) Urine Creatinine Urine Total Protein Fluid Total Protein Vancomycin Trough Rheumatoid Factor Complement C4 Miscellaneous Test Crossmatch 09/26/16 09/26/16 09/26/16 04:25 04:25 04:25 WBC RBC 2.65 L Hgb 7.4 L Hct 21.6 L MCV MCH MCHC RDW 22.5 H Plt Count Lymph % (Auto) [place] % (Auto) Lymph # [place] # Baso # Seg Neutrophils % Seg Neuts % (Manual) Lymphocytes % (Manual) 6.0 L Monocytes % (Manual) Eosinophils % (Manual) 11.0 H Basophils % (Manual) Nucleated RBC % Seg Neutrophils # Seg Neutrophils # Man Lymphocytes # (Manual) 0.4 L Monocytes # (Manual) Eosinophils # (Manual) 0.6 H Basophils # (Manual) PT INR Fibrinogen dRVVT Confirm Interp Factor V Activity POC ABG pH POC ABG pCO2 POC ABG pO2 ABG pO2 ABG HCO3 ABG Base Excess ABG Hemoglobin Oxyhemoglobin Sodium Potassium Chloride 97.0 L Carbon Dioxide 19 L BUN 43 H Creatinine 2.6 H Glucose 130 H POC Glucose Lactic Acid 4.40 H* Calcium 6.7 L Phosphorus Magnesium Direct Bilirubin AST ALT Alkaline Phosphatase Lactate Dehydrogenase Troponin T C-Reactive Protein Total Protein Albumin Prealbumin Triglycerides Cholesterol LDL Cholesterol Direct HDL Cholesterol Urine pH Urine WBC (Auto) Urine Creatinine Urine Total Protein Fluid Total Protein Vancomycin Trough Rheumatoid Factor Complement C4 Miscellaneous Test Crossmatch 09/26/16 09/26/16 09/26/16 05:20 11:44 12:12 WBC RBC Hgb Hct MCV MCH MCHC RDW Plt Count Lymph % (Auto) [place] % (Auto) Lymph # [place] # Baso # Seg Neutrophils % Seg Neuts % (Manual) Lymphocytes % (Manual) Monocytes % (Manual) Eosinophils % (Manual) Basophils % (Manual) Nucleated RBC % Seg Neutrophils # Seg Neutrophils # Man Lymphocytes # (Manual) Monocytes # (Manual) Eosinophils # (Manual) Basophils # (Manual) PT INR Fibrinogen dRVVT Confirm Interp Factor V Activity POC ABG pH POC ABG pCO2 27.0 L POC ABG pO2 69 L ABG pO2 ABG HCO3 ABG Base Excess ABG Hemoglobin Oxyhemoglobin Sodium Potassium Chloride Carbon Dioxide BUN Creatinine Glucose POC Glucose 121 H 128 H Lactic Acid Calcium Phosphorus Magnesium Direct Bilirubin AST ALT Alkaline Phosphatase Lactate Dehydrogenase Troponin T C-Reactive Protein Total Protein Albumin Prealbumin Triglycerides Cholesterol LDL Cholesterol Direct HDL Cholesterol Urine pH Urine WBC (Auto) Urine Creatinine Urine Total Protein Fluid Total Protein Vancomycin Trough Rheumatoid Factor Complement C4 Miscellaneous Test Crossmatch 09/26/16 09/26/16 09/27/16 18:31 23:40 08:20 WBC RBC Hgb Hct MCV MCH MCHC RDW Plt Count Lymph % (Auto) [place] % (Auto) Lymph # [place] # Baso # Seg Neutrophils % Seg Neuts % (Manual) Lymphocytes % (Manual) Monocytes % (Manual) Eosinophils % (Manual) Basophils % (Manual) Nucleated RBC % Seg Neutrophils # Seg Neutrophils # Man Lymphocytes # (Manual) Monocytes # (Manual) Eosinophils # (Manual) Basophils # (Manual) PT INR Fibrinogen dRVVT Confirm Interp Factor V Activity POC ABG pH POC ABG pCO2 POC ABG pO2 ABG pO2 ABG HCO3 ABG Base Excess ABG Hemoglobin Oxyhemoglobin Sodium Potassium Chloride Carbon Dioxide BUN Creatinine Glucose POC Glucose 120 H 133 H Lactic Acid 4.10 H* Calcium Phosphorus Magnesium Direct Bilirubin AST ALT Alkaline Phosphatase Lactate Dehydrogenase Troponin T C-Reactive Protein Total Protein Albumin Prealbumin Triglycerides Cholesterol LDL Cholesterol Direct HDL Cholesterol Urine pH Urine WBC (Auto) Urine Creatinine Urine Total Protein Fluid Total Protein Vancomycin Trough Rheumatoid Factor Complement C4 Miscellaneous Test Crossmatch 09/27/16 09/27/16 09/27/16 11:23 15:00 18:15 WBC RBC Hgb Hct MCV MCH MCHC RDW Plt Count Lymph % (Auto) [place] % (Auto) Lymph # [place] # Baso # Seg Neutrophils % Seg Neuts % (Manual) Lymphocytes % (Manual) Monocytes % (Manual) Eosinophils % (Manual) Basophils % (Manual) Nucleated RBC % Seg Neutrophils # Seg Neutrophils # Man Lymphocytes # (Manual) Monocytes # (Manual) Eosinophils # (Manual) Basophils # (Manual) PT INR Fibrinogen dRVVT Confirm Interp Factor V Activity POC ABG pH 7.459 H POC ABG pCO2 27.1 L POC ABG pO2 140 H ABG pO2 ABG HCO3 ABG Base Excess ABG Hemoglobin Oxyhemoglobin Sodium Potassium Chloride Carbon Dioxide BUN Creatinine Glucose POC Glucose 114 H 127 H Lactic Acid Calcium Phosphorus Magnesium Direct Bilirubin AST ALT Alkaline Phosphatase Lactate Dehydrogenase Troponin T C-Reactive Protein Total Protein Albumin Prealbumin Triglycerides Cholesterol LDL Cholesterol Direct HDL Cholesterol Urine pH Urine WBC (Auto) Urine Creatinine Urine Total Protein Fluid Total Protein Vancomycin Trough Rheumatoid Factor Complement C4 Miscellaneous Test Crossmatch 09/27/16 09/27/16 09/28/16 Unknown Unknown 03:45 WBC RBC 2.49 L Hgb 6.8 L Hct 20.7 L MCV MCH 27 L MCHC RDW 22.1 H Plt Count Lymph % (Auto) [place] % (Auto) Lymph # [place] # Baso # Seg Neutrophils % Seg Neuts % (Manual) 32.0 L Lymphocytes % (Manual) 12.0 L Monocytes % (Manual) 11.0 H Eosinophils % (Manual) 10.0 H Basophils % (Manual) Nucleated RBC % Seg Neutrophils # Seg Neutrophils # Man Lymphocytes # (Manual) 1.0 L Monocytes # (Manual) 0.9 H Eosinophils # (Manual) 0.8 H Basophils # (Manual) PT INR Fibrinogen dRVVT Confirm Interp Factor V Activity POC ABG pH POC ABG pCO2 POC ABG pO2 ABG pO2 ABG HCO3 ABG Base Excess ABG Hemoglobin Oxyhemoglobin Sodium 135 L 135 L Potassium 3.5 L Chloride 93.6 L 94.4 L Carbon Dioxide 17 L 21 L BUN 45 H 28 H Creatinine 3.3 H 2.5 H Glucose 106 H POC Glucose Lactic Acid Calcium 7.3 L 7.1 L Phosphorus Magnesium Direct Bilirubin AST ALT Alkaline Phosphatase Lactate Dehydrogenase Troponin T C-Reactive Protein Total Protein Albumin Prealbumin Triglycerides Cholesterol LDL Cholesterol Direct HDL Cholesterol Urine pH Urine WBC (Auto) Urine Creatinine Urine Total Protein Fluid Total Protein Vancomycin Trough Rheumatoid Factor Complement C4 Miscellaneous Test Crossmatch 09/28/16 09/28/16 09/28/16 03:45 07:25 11:58 WBC 13.3 H RBC 3.01 L Hgb 8.4 L Hct 25.0 L MCV MCH MCHC RDW 20.5 H Plt Count 128 L Lymph % (Auto) [place] % (Auto) Lymph # [place] # Baso # Seg Neutrophils % Seg Neuts % (Manual) Lymphocytes % (Manual) 7.0 L Monocytes % (Manual) Eosinophils % (Manual) 6.0 H Basophils % (Manual) Nucleated RBC % Seg Neutrophils # Seg Neutrophils # Man Lymphocytes # (Manual) 0.9 L Monocytes # (Manual) Eosinophils # (Manual) 0.8 H Basophils # (Manual) PT INR Fibrinogen dRVVT Confirm Interp Factor V Activity POC ABG pH POC ABG pCO2 POC ABG pO2 ABG pO2 ABG HCO3 ABG Base Excess ABG Hemoglobin Oxyhemoglobin Sodium Potassium Chloride Carbon Dioxide BUN Creatinine Glucose POC Glucose 121 H Lactic Acid 4.50 H* Calcium Phosphorus Magnesium Direct Bilirubin AST ALT Alkaline Phosphatase Lactate Dehydrogenase Troponin T C-Reactive Protein Total Protein Albumin Prealbumin Triglycerides Cholesterol LDL Cholesterol Direct HDL Cholesterol Urine pH Urine WBC (Auto) Urine Creatinine Urine Total Protein Fluid Total Protein Vancomycin Trough Rheumatoid Factor Complement C4 Miscellaneous Test Crossmatch 09/29/16 09/29/16 09/29/16 06:45 06:45 06:45 WBC 14.9 H RBC 2.74 L Hgb 7.6 L Hct 23.2 L MCV MCH MCHC RDW 20.5 H Plt Count 81 L Lymph % (Auto) [place] % (Auto) Lymph # [place] # Baso # Seg Neutrophils % Seg Neuts % (Manual) 81.0 H Lymphocytes % (Manual) 4.0 L Monocytes % (Manual) Eosinophils % (Manual) Basophils % (Manual) Nucleated RBC % Seg Neutrophils # Seg Neutrophils # Man 12.1 H Lymphocytes # (Manual) 0.6 L Monocytes # (Manual) Eosinophils # (Manual) Basophils # (Manual) PT INR Fibrinogen dRVVT Confirm Interp Factor V Activity POC ABG pH POC ABG pCO2 POC ABG pO2 ABG pO2 ABG HCO3 ABG Base Excess ABG Hemoglobin Oxyhemoglobin Sodium 133 L Potassium 3.4 L Chloride 92.5 L Carbon Dioxide 21 L BUN 33 H Creatinine 3.0 H Glucose POC Glucose Lactic Acid Calcium 6.6 L Phosphorus Magnesium 1.40 L Direct Bilirubin 0.9 H AST ALT Alkaline Phosphatase Lactate Dehydrogenase Troponin T C-Reactive Protein Total Protein 4.3 L Albumin 1.3 L Prealbumin Triglycerides Cholesterol LDL Cholesterol Direct HDL Cholesterol Urine pH Urine WBC (Auto) Urine Creatinine Urine Total Protein Fluid Total Protein Vancomycin Trough Rheumatoid Factor Complement C4 Miscellaneous Test Crossmatch 09/29/16 09/29/16 09/30/16 17:52 20:12 00:07 WBC RBC Hgb Hct MCV MCH MCHC RDW Plt Count Lymph % (Auto) [place] % (Auto) Lymph # [place] # Baso # Seg Neutrophils % Seg Neuts % (Manual) Lymphocytes % (Manual) Monocytes % (Manual) Eosinophils % (Manual) Basophils % (Manual) Nucleated RBC % Seg Neutrophils # Seg Neutrophils # Man Lymphocytes # (Manual) Monocytes # (Manual) Eosinophils # (Manual) Basophils # (Manual) PT INR Fibrinogen dRVVT Confirm Interp Factor V Activity POC ABG pH POC ABG pCO2 POC ABG pO2 ABG pO2 ABG HCO3 ABG Base Excess ABG Hemoglobin Oxyhemoglobin Sodium Potassium Chloride Carbon Dioxide BUN Creatinine Glucose POC Glucose 50 L 51 L Lactic Acid Calcium Phosphorus Magnesium Direct Bilirubin AST ALT Alkaline Phosphatase Lactate Dehydrogenase Troponin T 0.204 H* C-Reactive Protein Total Protein Albumin Prealbumin Triglycerides Cholesterol 31 L LDL Cholesterol Direct 4 L HDL Cholesterol 3 L Urine pH Urine WBC (Auto) Urine Creatinine Urine Total Protein Fluid Total Protein Vancomycin Trough Rheumatoid Factor Complement C4 Miscellaneous Test Crossmatch 09/30/16 09/30/16 09/30/16 01:30 05:15 06:10 WBC RBC Hgb Hct MCV MCH MCHC RDW Plt Count Lymph % (Auto) [place] % (Auto) Lymph # [place] # Baso # Seg Neutrophils % Seg Neuts % (Manual) Lymphocytes % (Manual) Monocytes % (Manual) Eosinophils % (Manual) Basophils % (Manual) Nucleated RBC % Seg Neutrophils # Seg Neutrophils # Man Lymphocytes # (Manual) Monocytes # (Manual) Eosinophils # (Manual) Basophils # (Manual) PT INR Fibrinogen dRVVT Confirm Interp Factor V Activity POC ABG pH POC ABG pCO2 POC ABG pO2 ABG pO2 ABG HCO3 ABG Base Excess ABG Hemoglobin Oxyhemoglobin Sodium 133 L Potassium 3.2 L Chloride 93.2 L Carbon Dioxide 19 L BUN 36 H Creatinine 3.2 H Glucose 104 H POC Glucose 167 H 146 H Lactic Acid Calcium 6.4 L Phosphorus Magnesium 1.60 L Direct Bilirubin AST ALT Alkaline Phosphatase Lactate Dehydrogenase Troponin T C-Reactive Protein Total Protein Albumin Prealbumin Triglycerides Cholesterol LDL Cholesterol Direct HDL Cholesterol Urine pH Urine WBC (Auto) Urine Creatinine Urine Total Protein Fluid Total Protein Vancomycin Trough Rheumatoid Factor Complement C4 Miscellaneous Test Crossmatch 09/30/16 09/30/16 09/30/16 11:26 13:39 18:38 WBC RBC Hgb Hct MCV MCH MCHC RDW Plt Count Lymph % (Auto) [place] % (Auto) Lymph # [place] # Baso # Seg Neutrophils % Seg Neuts % (Manual) Lymphocytes % (Manual) Monocytes % (Manual) Eosinophils % (Manual) Basophils % (Manual) Nucleated RBC % Seg Neutrophils # Seg Neutrophils # Man Lymphocytes # (Manual) Monocytes # (Manual) Eosinophils # (Manual) Basophils # (Manual) PT INR Fibrinogen dRVVT Confirm Interp Factor V Activity POC ABG pH 7.479 H POC ABG pCO2 29.8 L POC ABG pO2 117 H ABG pO2 ABG HCO3 ABG Base Excess ABG Hemoglobin Oxyhemoglobin Sodium Potassium Chloride Carbon Dioxide BUN Creatinine Glucose POC Glucose 140 H 122 H Lactic Acid Calcium Phosphorus Magnesium Direct Bilirubin AST ALT Alkaline Phosphatase Lactate Dehydrogenase Troponin T C-Reactive Protein Total Protein Albumin Prealbumin Triglycerides Cholesterol LDL Cholesterol Direct HDL Cholesterol Urine pH Urine WBC (Auto) Urine Creatinine Urine Total Protein Fluid Total Protein Vancomycin Trough Rheumatoid Factor Complement C4 Miscellaneous Test Crossmatch 10/01/16 10/01/16 10/01/16 06:00 06:00 12:37 WBC 12.6 H RBC 2.75 L Hgb 7.3 L Hct 23.3 L MCV MCH 27 L MCHC RDW 20.6 H Plt Count 72 L Lymph % (Auto) [place] % (Auto) Lymph # [place] # Baso # Seg Neutrophils % Seg Neuts % (Manual) 31.0 L Lymphocytes % (Manual) 8.0 L Monocytes % (Manual) Eosinophils % (Manual) Basophils % (Manual) Nucleated RBC % 3.0 H Seg Neutrophils # Seg Neutrophils # Man Lymphocytes # (Manual) 1.0 L Monocytes # (Manual) Eosinophils # (Manual) Basophils # (Manual) PT INR Fibrinogen dRVVT Confirm Interp Factor V Activity POC ABG pH POC ABG pCO2 POC ABG pO2 ABG pO2 ABG HCO3 ABG Base Excess ABG Hemoglobin Oxyhemoglobin Sodium 127 L Potassium Chloride 86.8 L Carbon Dioxide 20 L BUN 42 H Creatinine 3.5 H Glucose POC Glucose 65 L Lactic Acid Calcium 7.0 L Phosphorus Magnesium Direct Bilirubin AST ALT Alkaline Phosphatase Lactate Dehydrogenase Troponin T C-Reactive Protein Total Protein Albumin Prealbumin Triglycerides Cholesterol LDL Cholesterol Direct HDL Cholesterol Urine pH Urine WBC (Auto) Urine Creatinine Urine Total Protein Fluid Total Protein Vancomycin Trough Rheumatoid Factor Complement C4 Miscellaneous Test Crossmatch 10/01/16 10/01/16 10/02/16 17:39 23:32 00:59 WBC RBC Hgb Hct MCV MCH MCHC RDW Plt Count Lymph % (Auto) [place] % (Auto) Lymph # [place] # Baso # Seg Neutrophils % Seg Neuts % (Manual) Lymphocytes % (Manual) Monocytes % (Manual) Eosinophils % (Manual) Basophils % (Manual) Nucleated RBC % Seg Neutrophils # Seg Neutrophils # Man Lymphocytes # (Manual) Monocytes # (Manual) Eosinophils # (Manual) Basophils # (Manual) PT INR Fibrinogen dRVVT Confirm Interp Factor V Activity POC ABG pH POC ABG pCO2 POC ABG pO2 ABG pO2 ABG HCO3 ABG Base Excess ABG Hemoglobin Oxyhemoglobin Sodium Potassium Chloride Carbon Dioxide BUN Creatinine Glucose POC Glucose 107 H 52 L 145 H Lactic Acid Calcium Phosphorus Magnesium Direct Bilirubin AST ALT Alkaline Phosphatase Lactate Dehydrogenase Troponin T C-Reactive Protein Total Protein Albumin Prealbumin Triglycerides Cholesterol LDL Cholesterol Direct HDL Cholesterol Urine pH Urine WBC (Auto) Urine Creatinine Urine Total Protein Fluid Total Protein Vancomycin Trough Rheumatoid Factor Complement C4 Miscellaneous Test Crossmatch 10/02/16 10/02/16 10/02/16 10:30 10:50 10:50 WBC 14.7 H RBC 2.76 L Hgb 7.4 L Hct 23.6 L MCV MCH 27 L MCHC RDW 20.2 H Plt Count 79 L Lymph % (Auto) [place] % (Auto) Lymph # [place] # Baso # Seg Neutrophils % Seg Neuts % (Manual) 86.0 H Lymphocytes % (Manual) 6.0 L Monocytes % (Manual) Eosinophils % (Manual) Basophils % (Manual) Nucleated RBC % Seg Neutrophils # Seg Neutrophils # Man 12.6 H Lymphocytes # (Manual) 0.9 L Monocytes # (Manual) Eosinophils # (Manual) Basophils # (Manual) PT INR Fibrinogen dRVVT Confirm Interp Factor V Activity POC ABG pH 7.486 H POC ABG pCO2 30.1 L POC ABG pO2 108 H ABG pO2 ABG HCO3 ABG Base Excess ABG Hemoglobin Oxyhemoglobin Sodium 131 L Potassium 3.4 L Chloride 89.9 L Carbon Dioxide BUN 26 H Creatinine 2.6 H Glucose POC Glucose Lactic Acid Calcium 7.0 L Phosphorus Magnesium Direct Bilirubin AST ALT Alkaline Phosphatase Lactate Dehydrogenase Troponin T C-Reactive Protein Total Protein Albumin Prealbumin Triglycerides Cholesterol LDL Cholesterol Direct HDL Cholesterol Urine pH Urine WBC (Auto) Urine Creatinine Urine Total Protein Fluid Total Protein Vancomycin Trough Rheumatoid Factor Complement C4 Miscellaneous Test Crossmatch 10/02/16 10/03/16 10/03/16 23:45 00:45 05:10 WBC 12.9 H RBC 2.77 L Hgb 7.6 L Hct 23.7 L MCV MCH 27 L MCHC RDW 19.7 H Plt Count 89 L Lymph % (Auto) [place] % (Auto) Lymph # [place] # Baso # Seg Neutrophils % Seg Neuts % (Manual) Lymphocytes % (Manual) 8.0 L Monocytes % (Manual) Eosinophils % (Manual) Basophils % (Manual) Nucleated RBC % Seg Neutrophils # 11.9 H Seg Neutrophils # Man Lymphocytes # (Manual) 1.0 L Monocytes # (Manual) Eosinophils # (Manual) Basophils # (Manual) PT INR Fibrinogen dRVVT Confirm Interp Factor V Activity POC ABG pH POC ABG pCO2 POC ABG pO2 ABG pO2 ABG HCO3 ABG Base Excess ABG Hemoglobin Oxyhemoglobin Sodium Potassium Chloride Carbon Dioxide BUN Creatinine Glucose POC Glucose 55 L 199 H Lactic Acid Calcium Phosphorus Magnesium Direct Bilirubin AST ALT Alkaline Phosphatase Lactate Dehydrogenase Troponin T C-Reactive Protein Total Protein Albumin Prealbumin Triglycerides Cholesterol LDL Cholesterol Direct HDL Cholesterol Urine pH Urine WBC (Auto) Urine Creatinine Urine Total Protein Fluid Total Protein Vancomycin Trough Rheumatoid Factor Complement C4 Miscellaneous Test Crossmatch 10/03/16 10/03/16 10/03/16 05:10 12:14 13:18 WBC RBC Hgb Hct MCV MCH MCHC RDW Plt Count Lymph % (Auto) [place] % (Auto) Lymph # [place] # Baso # Seg Neutrophils % Seg Neuts % (Manual) Lymphocytes % (Manual) Monocytes % (Manual) Eosinophils % (Manual) Basophils % (Manual) Nucleated RBC % Seg Neutrophils # Seg Neutrophils # Man Lymphocytes # (Manual) Monocytes # (Manual) Eosinophils # (Manual) Basophils # (Manual) PT INR Fibrinogen dRVVT Confirm Interp Factor V Activity POC ABG pH POC ABG pCO2 POC ABG pO2 ABG pO2 ABG HCO3 ABG Base Excess ABG Hemoglobin Oxyhemoglobin Sodium 129 L Potassium 3.3 L Chloride 88.8 L Carbon Dioxide 20 L BUN 29 H Creatinine 2.8 H Glucose POC Glucose 68 L 127 H Lactic Acid Calcium 7.2 L Phosphorus Magnesium Direct Bilirubin AST ALT Alkaline Phosphatase Lactate Dehydrogenase Troponin T C-Reactive Protein Total Protein Albumin Prealbumin Triglycerides Cholesterol LDL Cholesterol Direct HDL Cholesterol Urine pH Urine WBC (Auto) Urine Creatinine Urine Total Protein Fluid Total Protein Vancomycin Trough Rheumatoid Factor Complement C4 Miscellaneous Test Crossmatch 10/03/16 10/03/16 10/03/16 14:42 18:21 19:09 WBC RBC Hgb Hct MCV MCH MCHC RDW Plt Count Lymph % (Auto) [place] % (Auto) Lymph # [place] # Baso # Seg Neutrophils % Seg Neuts % (Manual) Lymphocytes % (Manual) Monocytes % (Manual) Eosinophils % (Manual) Basophils % (Manual) Nucleated RBC % Seg Neutrophils # Seg Neutrophils # Man Lymphocytes # (Manual) Monocytes # (Manual) Eosinophils # (Manual) Basophils # (Manual) PT INR Fibrinogen dRVVT Confirm Interp Factor V Activity POC ABG pH 7.499 H POC ABG pCO2 28.4 L POC ABG pO2 44 L ABG pO2 ABG HCO3 ABG Base Excess ABG Hemoglobin Oxyhemoglobin Sodium Potassium Chloride Carbon Dioxide BUN Creatinine Glucose POC Glucose 64 L 205 H Lactic Acid Calcium Phosphorus Magnesium Direct Bilirubin AST ALT Alkaline Phosphatase Lactate Dehydrogenase Troponin T C-Reactive Protein Total Protein Albumin Prealbumin Triglycerides Cholesterol LDL Cholesterol Direct HDL Cholesterol Urine pH Urine WBC (Auto) Urine Creatinine Urine Total Protein Fluid Total Protein Vancomycin Trough Rheumatoid Factor Complement C4 Miscellaneous Test Crossmatch 10/03/16 10/04/16 10/04/16 23:33 04:18 06:30 WBC RBC 2.54 L Hgb 7.1 L Hct 21.7 L MCV MCH MCHC RDW 19.5 H Plt Count 76 L Lymph % (Auto) [place] % (Auto) Lymph # [place] # Baso # Seg Neutrophils % Seg Neuts % (Manual) 88.0 H Lymphocytes % (Manual) 6.0 L Monocytes % (Manual) Eosinophils % (Manual) Basophils % (Manual) Nucleated RBC % Seg Neutrophils # Seg Neutrophils # Man 8.8 H Lymphocytes # (Manual) 0.6 L Monocytes # (Manual) Eosinophils # (Manual) Basophils # (Manual) PT INR Fibrinogen dRVVT Confirm Interp Factor V Activity POC ABG pH 7.461 H POC ABG pCO2 33.6 L POC ABG pO2 211 H ABG pO2 ABG HCO3 ABG Base Excess ABG Hemoglobin Oxyhemoglobin Sodium Potassium Chloride Carbon Dioxide BUN Creatinine Glucose POC Glucose 136 H Lactic Acid Calcium Phosphorus Magnesium Direct Bilirubin AST ALT Alkaline Phosphatase Lactate Dehydrogenase Troponin T C-Reactive Protein Total Protein Albumin Prealbumin Triglycerides Cholesterol LDL Cholesterol Direct HDL Cholesterol Urine pH Urine WBC (Auto) Urine Creatinine Urine Total Protein Fluid Total Protein Vancomycin Trough Rheumatoid Factor Complement C4 Miscellaneous Test Crossmatch 10/04/16 10/04/16 10/04/16 06:30 11:45 17:54 WBC RBC Hgb Hct MCV MCH MCHC RDW Plt Count Lymph % (Auto) [place] % (Auto) Lymph # [place] # Baso # Seg Neutrophils % Seg Neuts % (Manual) Lymphocytes % (Manual) Monocytes % (Manual) Eosinophils % (Manual) Basophils % (Manual) Nucleated RBC % Seg Neutrophils # Seg Neutrophils # Man Lymphocytes # (Manual) Monocytes # (Manual) Eosinophils # (Manual) Basophils # (Manual) PT INR Fibrinogen dRVVT Confirm Interp Factor V Activity POC ABG pH POC ABG pCO2 POC ABG pO2 ABG pO2 ABG HCO3 ABG Base Excess ABG Hemoglobin Oxyhemoglobin Sodium 128 L Potassium Chloride 87.4 L Carbon Dioxide 20 L BUN 34 H Creatinine 2.9 H Glucose 127 H POC Glucose 158 H 160 H Lactic Acid Calcium 7.4 L Phosphorus Magnesium Direct Bilirubin AST ALT Alkaline Phosphatase Lactate Dehydrogenase Troponin T C-Reactive Protein Total Protein Albumin Prealbumin Triglycerides Cholesterol LDL Cholesterol Direct HDL Cholesterol Urine pH Urine WBC (Auto) Urine Creatinine Urine Total Protein Fluid Total Protein Vancomycin Trough Rheumatoid Factor Complement C4 Miscellaneous Test Crossmatch 10/04/16 10/05/16 10/05/16 23:25 04:30 05:00 WBC RBC 2.64 L Hgb 7.5 L Hct 22.6 L MCV MCH MCHC RDW 19.3 H Plt Count 80 L Lymph % (Auto) [place] % (Auto) Lymph # [place] # Baso # Seg Neutrophils % Seg Neuts % (Manual) Lymphocytes % (Manual) 12.0 L Monocytes % (Manual) Eosinophils % (Manual) Basophils % (Manual) Nucleated RBC % Seg Neutrophils # Seg Neutrophils # Man Lymphocytes # (Manual) Monocytes # (Manual) Eosinophils # (Manual) Basophils # (Manual) PT INR Fibrinogen dRVVT Confirm Interp Factor V Activity POC ABG pH 7.475 H POC ABG pCO2 33.3 L POC ABG pO2 140 H ABG pO2 ABG HCO3 ABG Base Excess ABG Hemoglobin Oxyhemoglobin Sodium Potassium Chloride Carbon Dioxide BUN Creatinine Glucose POC Glucose 141 H Lactic Acid Calcium Phosphorus Magnesium Direct Bilirubin AST ALT Alkaline Phosphatase Lactate Dehydrogenase Troponin T C-Reactive Protein Total Protein Albumin Prealbumin Triglycerides Cholesterol LDL Cholesterol Direct HDL Cholesterol Urine pH Urine WBC (Auto) Urine Creatinine Urine Total Protein Fluid Total Protein Vancomycin Trough Rheumatoid Factor Complement C4 Miscellaneous Test Crossmatch 10/05/16 10/05/16 10/05/16 05:00 05:09 12:58 WBC RBC Hgb Hct MCV MCH MCHC RDW Plt Count Lymph % (Auto) Trigg % (Auto) Lymph # Trigg # Baso # Seg Neutrophils % Seg Neuts % (Manual) Lymphocytes % (Manual) Monocytes % (Manual) Eosinophils % (Manual) Basophils % (Manual) Nucleated RBC % Seg Neutrophils # Seg Neutrophils # Man Lymphocytes # (Manual) Monocytes # (Manual) Eosinophils # (Manual) Basophils # (Manual) PT INR Fibrinogen dRVVT Confirm Interp Factor V Activity POC ABG pH POC ABG pCO2 POC ABG pO2 ABG pO2 ABG HCO3 ABG Base Excess ABG Hemoglobin Oxyhemoglobin Sodium 131 L Potassium Chloride 94.0 L Carbon Dioxide 20 L BUN 22 H Creatinine 2.0 H Glucose 123 H POC Glucose 166 H 179 H Lactic Acid Calcium 7.7 L Phosphorus 2.20 L D Magnesium Direct Bilirubin AST ALT Alkaline Phosphatase Lactate Dehydrogenase Troponin T C-Reactive Protein Total Protein Albumin Prealbumin Triglycerides Cholesterol LDL Cholesterol Direct HDL Cholesterol Urine pH Urine WBC (Auto) Urine Creatinine Urine Total Protein Fluid Total Protein Vancomycin Trough Rheumatoid Factor Complement C4 Miscellaneous Test Crossmatch 10/05/16 10/05/16 10/05/16 15:50 18:53 23:12 WBC RBC Hgb Hct MCV MCH MCHC RDW Plt Count Lymph % (Auto) [place] % (Auto) Lymph # [place] # Baso # Seg Neutrophils % Seg Neuts % (Manual) Lymphocytes % (Manual) Monocytes % (Manual) Eosinophils % (Manual) Basophils % (Manual) Nucleated RBC % Seg Neutrophils # Seg Neutrophils # Man Lymphocytes # (Manual) Monocytes # (Manual) Eosinophils # (Manual) Basophils # (Manual) PT INR Fibrinogen dRVVT Confirm Interp Factor V Activity POC ABG pH POC ABG pCO2 POC ABG pO2 ABG pO2 ABG HCO3 ABG Base Excess ABG Hemoglobin Oxyhemoglobin Sodium Potassium Chloride Carbon Dioxide BUN Creatinine Glucose POC Glucose 150 H 164 H Lactic Acid Calcium Phosphorus Magnesium Direct Bilirubin AST ALT Alkaline Phosphatase Lactate Dehydrogenase Troponin T C-Reactive Protein Total Protein Albumin Prealbumin Triglycerides Cholesterol LDL Cholesterol Direct HDL Cholesterol Urine pH Urine WBC (Auto) Urine Creatinine Urine Total Protein Fluid Total Protein Vancomycin Trough Rheumatoid Factor Complement C4 Miscellaneous Test Crossmatch See Detail 10/06/16 10/06/16 10/06/16 03:50 03:50 04:53 WBC RBC 3.00 L Hgb 8.6 L Hct 25.8 L MCV MCH MCHC RDW 17.9 H Plt Count 65 L Lymph % (Auto) [place] % (Auto) Lymph # [place] # Baso # Seg Neutrophils % Seg Neuts % (Manual) 30.0 L Lymphocytes % (Manual) 5.0 L Monocytes % (Manual) Eosinophils % (Manual) Basophils % (Manual) Nucleated RBC % Seg Neutrophils # Seg Neutrophils # Man Lymphocytes # (Manual) 0.4 L Monocytes # (Manual) Eosinophils # (Manual) Basophils # (Manual) PT INR Fibrinogen dRVVT Confirm Interp Factor V Activity POC ABG pH 7.310 L POC ABG pCO2 49.0 H POC ABG pO2 ABG pO2 ABG HCO3 ABG Base Excess ABG Hemoglobin Oxyhemoglobin Sodium 133 L Potassium Chloride 95.9 L Carbon Dioxide BUN 26 H Creatinine 2.0 H Glucose 116 H POC Glucose Lactic Acid Calcium 7.8 L Phosphorus Magnesium Direct Bilirubin AST ALT Alkaline Phosphatase Lactate Dehydrogenase Troponin T C-Reactive Protein Total Protein Albumin Prealbumin Triglycerides Cholesterol LDL Cholesterol Direct HDL Cholesterol Urine pH Urine WBC (Auto) Urine Creatinine Urine Total Protein Fluid Total Protein Vancomycin Trough Rheumatoid Factor Complement C4 Miscellaneous Test Crossmatch 10/06/16 10/06/16 10/06/16 05:23 11:52 18:34 WBC RBC Hgb Hct MCV MCH MCHC RDW Plt Count Lymph % (Auto) [place] % (Auto) Lymph # [place] # Baso # Seg Neutrophils % Seg Neuts % (Manual) Lymphocytes % (Manual) Monocytes % (Manual) Eosinophils % (Manual) Basophils % (Manual) Nucleated RBC % Seg Neutrophils # Seg Neutrophils # Man Lymphocytes # (Manual) Monocytes # (Manual) Eosinophils # (Manual) Basophils # (Manual) PT INR Fibrinogen dRVVT Confirm Interp Factor V Activity POC ABG pH POC ABG pCO2 POC ABG pO2 ABG pO2 ABG HCO3 ABG Base Excess ABG Hemoglobin Oxyhemoglobin Sodium Potassium Chloride Carbon Dioxide BUN Creatinine Glucose POC Glucose 126 H 116 H 129 H Lactic Acid Calcium Phosphorus Magnesium Direct Bilirubin AST ALT Alkaline Phosphatase Lactate Dehydrogenase Troponin T C-Reactive Protein Total Protein Albumin Prealbumin Triglycerides Cholesterol LDL Cholesterol Direct HDL Cholesterol Urine pH Urine WBC (Auto) Urine Creatinine Urine Total Protein Fluid Total Protein Vancomycin Trough Rheumatoid Factor Complement C4 Miscellaneous Test Crossmatch 10/07/16 10/07/16 10/07/16 03:45 05:00 10:00 WBC 17.0 H RBC 2.68 L Hgb 7.3 L Hct 25.3 L MCV MCH 27 L MCHC 29 L RDW 19.6 H Plt Count 74 L Lymph % (Auto) [place] % (Auto) Lymph # [place] # Baso # Seg Neutrophils % Seg Neuts % (Manual) Lymphocytes % (Manual) 12.0 L Monocytes % (Manual) Eosinophils % (Manual) Basophils % (Manual) Nucleated RBC % 4.0 H Seg Neutrophils # Seg Neutrophils # Man 10.7 H Lymphocytes # (Manual) Monocytes # (Manual) Eosinophils # (Manual) Basophils # (Manual) PT INR Fibrinogen dRVVT Confirm Interp Factor V Activity POC ABG pH POC ABG pCO2 POC ABG pO2 ABG pO2 ABG HCO3 ABG Base Excess ABG Hemoglobin Oxyhemoglobin Sodium 130 L Potassium 3.2 L Chloride 93.9 L Carbon Dioxide 20 L BUN 44 H Creatinine 2.7 H Glucose 129 H POC Glucose Lactic Acid Calcium 7.4 L Phosphorus Magnesium Direct Bilirubin AST ALT 6 L Alkaline Phosphatase 195 H Lactate Dehydrogenase Troponin T C-Reactive Protein Total Protein 4.9 L Albumin 1.0 L Prealbumin Triglycerides Cholesterol LDL Cholesterol Direct HDL Cholesterol Urine pH Urine WBC (Auto) Urine Creatinine Urine Total Protein Fluid Total Protein Vancomycin Trough Rheumatoid Factor Complement C4 Miscellaneous Test Flexitest 1 H Crossmatch 10/07/16 10/07/16 10/07/16 10:00 11:24 18:10 WBC RBC Hgb Hct MCV MCH MCHC RDW Plt Count Lymph % (Auto) [place] % (Auto) Lymph # [place] # Baso # Seg Neutrophils % Seg Neuts % (Manual) Lymphocytes % (Manual) Monocytes % (Manual) Eosinophils % (Manual) Basophils % (Manual) Nucleated RBC % Seg Neutrophils # Seg Neutrophils # Man Lymphocytes # (Manual) Monocytes # (Manual) Eosinophils # (Manual) Basophils # (Manual) PT INR Fibrinogen dRVVT Confirm Interp Factor V Activity POC ABG pH POC ABG pCO2 POC ABG pO2 ABG pO2 ABG HCO3 ABG Base Excess ABG Hemoglobin Oxyhemoglobin Sodium Potassium Chloride Carbon Dioxide BUN Creatinine Glucose POC Glucose 116 H 130 H Lactic Acid Calcium Phosphorus Magnesium Direct Bilirubin AST ALT Alkaline Phosphatase Lactate Dehydrogenase Troponin T C-Reactive Protein 19.40 H Total Protein Albumin Prealbumin Triglycerides Cholesterol LDL Cholesterol Direct HDL Cholesterol Urine pH Urine WBC (Auto) Urine Creatinine Urine Total Protein Fluid Total Protein Vancomycin Trough Rheumatoid Factor Complement C4 Miscellaneous Test Crossmatch 10/07/16 10/08/16 10/08/16 18:30 00:00 04:00 WBC RBC Hgb Hct MCV MCH MCHC RDW Plt Count Lymph % (Auto) [place] % (Auto) Lymph # [place] # Baso # Seg Neutrophils % Seg Neuts % (Manual) Lymphocytes % (Manual) Monocytes % (Manual) Eosinophils % (Manual) Basophils % (Manual) Nucleated RBC % Seg Neutrophils # Seg Neutrophils # Man Lymphocytes # (Manual) Monocytes # (Manual) Eosinophils # (Manual) Basophils # (Manual) PT INR Fibrinogen dRVVT Confirm Interp Factor V Activity POC ABG pH POC ABG pCO2 POC ABG pO2 ABG pO2 ABG HCO3 ABG Base Excess ABG Hemoglobin Oxyhemoglobin Sodium 132 L Potassium 3.3 L Chloride 93.6 L Carbon Dioxide 17 L BUN 59 H Creatinine 2.7 H Glucose 121 H POC Glucose 122 H Lactic Acid Calcium 7.6 L Phosphorus Magnesium Direct Bilirubin AST ALT Alkaline Phosphatase Lactate Dehydrogenase Troponin T C-Reactive Protein Total Protein Albumin Prealbumin Triglycerides Cholesterol LDL Cholesterol Direct HDL Cholesterol Urine pH Urine WBC (Auto) > 182.0 H Urine Creatinine Urine Total Protein Fluid Total Protein Vancomycin Trough Rheumatoid Factor Complement C4 Miscellaneous Test Crossmatch 10/08/16 10/08/16 10/08/16 04:30 05:30 11:51 WBC RBC 5.15 H Hgb 14.4 H D Hct 44.5 H D MCV MCH MCHC RDW 19.5 H Plt Count 56 L Lymph % (Auto) [place] % (Auto) Lymph # [place] # Baso # Seg Neutrophils % Seg Neuts % (Manual) 24.0 L Lymphocytes % (Manual) 8.0 L Monocytes % (Manual) Eosinophils % (Manual) Basophils % (Manual) Nucleated RBC % 9.0 H Seg Neutrophils # Seg Neutrophils # Man Lymphocytes # (Manual) 0.7 L Monocytes # (Manual) Eosinophils # (Manual) Basophils # (Manual) PT INR Fibrinogen dRVVT Confirm Interp Factor V Activity POC ABG pH POC ABG pCO2 POC ABG pO2 ABG pO2 ABG HCO3 ABG Base Excess ABG Hemoglobin Oxyhemoglobin Sodium Potassium Chloride Carbon Dioxide BUN Creatinine Glucose POC Glucose 125 H 150 H Lactic Acid Calcium Phosphorus Magnesium Direct Bilirubin AST ALT Alkaline Phosphatase Lactate Dehydrogenase Troponin T C-Reactive Protein Total Protein Albumin Prealbumin Triglycerides Cholesterol LDL Cholesterol Direct HDL Cholesterol Urine pH Urine WBC (Auto) Urine Creatinine Urine Total Protein Fluid Total Protein Vancomycin Trough Rheumatoid Factor Complement C4 Miscellaneous Test Crossmatch 10/08/16 10/08/16 10/08/16 12:49 17:07 19:30 WBC RBC Hgb 7.1 L D Hct 22.4 L D MCV MCH MCHC RDW Plt Count Lymph % (Auto) [place] % (Auto) Lymph # [place] # Baso # Seg Neutrophils % Seg Neuts % (Manual) Lymphocytes % (Manual) Monocytes % (Manual) Eosinophils % (Manual) Basophils % (Manual) Nucleated RBC % Seg Neutrophils # Seg Neutrophils # Man Lymphocytes # (Manual) Monocytes # (Manual) Eosinophils # (Manual) Basophils # (Manual) PT INR Fibrinogen dRVVT Confirm Interp Factor V Activity POC ABG pH POC ABG pCO2 28.2 L POC ABG pO2 111 H ABG pO2 ABG HCO3 ABG Base Excess ABG Hemoglobin Oxyhemoglobin Sodium Potassium Chloride Carbon Dioxide BUN Creatinine Glucose POC Glucose 145 H Lactic Acid Calcium Phosphorus Magnesium Direct Bilirubin AST ALT Alkaline Phosphatase Lactate Dehydrogenase Troponin T C-Reactive Protein Total Protein Albumin Prealbumin Triglycerides Cholesterol LDL Cholesterol Direct HDL Cholesterol Urine pH Urine WBC (Auto) Urine Creatinine Urine Total Protein Fluid Total Protein Vancomycin Trough Rheumatoid Factor Complement C4 Miscellaneous Test Crossmatch 10/08/16 10/09/16 10/09/16 19:30 03:45 03:45 WBC 12.6 H RBC 2.36 L Hgb 6.7 L Hct 21.1 L MCV MCH MCHC RDW 19.5 H Plt Count 75 L Lymph % (Auto) [place] % (Auto) Lymph # [place] # Baso # Seg Neutrophils % Seg Neuts % (Manual) Lymphocytes % (Manual) Monocytes % (Manual) 10.0 H Eosinophils % (Manual) Basophils % (Manual) Nucleated RBC % 3.0 H Seg Neutrophils # Seg Neutrophils # Man Lymphocytes # (Manual) Monocytes # (Manual) 1.3 H Eosinophils # (Manual) Basophils # (Manual) PT 18.0 H INR 1.41 H Fibrinogen dRVVT Confirm Interp Factor V Activity POC ABG pH POC ABG pCO2 POC ABG pO2 ABG pO2 ABG HCO3 ABG Base Excess ABG Hemoglobin Oxyhemoglobin Sodium 135 L Potassium Chloride Carbon Dioxide 17 L BUN 81 H Creatinine 3.2 H Glucose 109 H POC Glucose Lactic Acid Calcium 7.4 L Phosphorus 4.60 H D Magnesium Direct Bilirubin AST ALT Alkaline Phosphatase Lactate Dehydrogenase Troponin T C-Reactive Protein Total Protein Albumin Prealbumin Triglycerides Cholesterol LDL Cholesterol Direct HDL Cholesterol Urine pH Urine WBC (Auto) Urine Creatinine Urine Total Protein Fluid Total Protein Vancomycin Trough Rheumatoid Factor Complement C4 Miscellaneous Test Crossmatch 10/09/16 10/09/16 10/09/16 03:45 05:14 07:20 WBC RBC Hgb Hct MCV MCH MCHC RDW Plt Count Lymph % (Auto) [place] % (Auto) Lymph # [place] # Baso # Seg Neutrophils % Seg Neuts % (Manual) Lymphocytes % (Manual) Monocytes % (Manual) Eosinophils % (Manual) Basophils % (Manual) Nucleated RBC % Seg Neutrophils # Seg Neutrophils # Man Lymphocytes # (Manual) Monocytes # (Manual) Eosinophils # (Manual) Basophils # (Manual) PT 19.0 H INR 1.51 H Fibrinogen dRVVT Confirm Interp Factor V Activity POC ABG pH POC ABG pCO2 POC ABG pO2 ABG pO2 ABG HCO3 ABG Base Excess ABG Hemoglobin Oxyhemoglobin Sodium Potassium Chloride Carbon Dioxide BUN Creatinine Glucose POC Glucose 151 H Lactic Acid Calcium Phosphorus Magnesium Direct Bilirubin AST ALT Alkaline Phosphatase Lactate Dehydrogenase Troponin T C-Reactive Protein Total Protein Albumin Prealbumin Triglycerides Cholesterol LDL Cholesterol Direct HDL Cholesterol Urine pH Urine WBC (Auto) Urine Creatinine Urine Total Protein Fluid Total Protein Vancomycin Trough Rheumatoid Factor Complement C4 Miscellaneous Test Crossmatch See Detail 10/09/16 10/09/16 10/09/16 11:46 16:20 16:43 WBC RBC Hgb 7.2 L Hct 22.2 L MCV MCH MCHC RDW Plt Count Lymph % (Auto) [place] % (Auto) Lymph # [place] # Baso # Seg Neutrophils % Seg Neuts % (Manual) Lymphocytes % (Manual) Monocytes % (Manual) Eosinophils % (Manual) Basophils % (Manual) Nucleated RBC % Seg Neutrophils # Seg Neutrophils # Man Lymphocytes # (Manual) Monocytes # (Manual) Eosinophils # (Manual) Basophils # (Manual) PT INR Fibrinogen dRVVT Confirm Interp Factor V Activity POC ABG pH POC ABG pCO2 POC ABG pO2 ABG pO2 ABG HCO3 ABG Base Excess ABG Hemoglobin Oxyhemoglobin Sodium Potassium Chloride Carbon Dioxide BUN Creatinine Glucose POC Glucose 133 H 141 H Lactic Acid Calcium Phosphorus Magnesium Direct Bilirubin AST ALT Alkaline Phosphatase Lactate Dehydrogenase Troponin T C-Reactive Protein Total Protein Albumin Prealbumin Triglycerides Cholesterol LDL Cholesterol Direct HDL Cholesterol Urine pH Urine WBC (Auto) Urine Creatinine Urine Total Protein Fluid Total Protein Vancomycin Trough Rheumatoid Factor Complement C4 Miscellaneous Test Crossmatch 10/10/16 10/10/16 10/10/16 05:00 05:00 11:19 WBC 18.5 H RBC 2.19 L Hgb 6.4 L Hct 19.6 L* MCV MCH MCHC RDW 19.3 H Plt Count 93 L Lymph % (Auto) [place] % (Auto) Lymph # [place] # Baso # Seg Neutrophils % Seg Neuts % (Manual) Lymphocytes % (Manual) 10.0 L Monocytes % (Manual) Eosinophils % (Manual) Basophils % (Manual) Nucleated RBC % 4.0 H Seg Neutrophils # Seg Neutrophils # Man 11.3 H Lymphocytes # (Manual) Monocytes # (Manual) Eosinophils # (Manual) Basophils # (Manual) PT INR Fibrinogen dRVVT Confirm Interp Factor V Activity POC ABG pH POC ABG pCO2 POC ABG pO2 ABG pO2 ABG HCO3 ABG Base Excess ABG Hemoglobin Oxyhemoglobin Sodium Potassium 5.7 H D Chloride Carbon Dioxide 16 L BUN 94 H Creatinine 3.1 H Glucose 131 H POC Glucose 153 H Lactic Acid Calcium 8.2 L Phosphorus 5.10 H Magnesium 2.40 H Direct Bilirubin 0.3 H AST ALT < 5 L Alkaline Phosphatase 319 H Lactate Dehydrogenase Troponin T C-Reactive Protein Total Protein 5.1 L Albumin 1.0 L Prealbumin Triglycerides Cholesterol LDL Cholesterol Direct HDL Cholesterol Urine pH Urine WBC (Auto) Urine Creatinine Urine Total Protein Fluid Total Protein Vancomycin Trough Rheumatoid Factor Complement C4 Miscellaneous Test Crossmatch 10/10/16 10/10/16 10/11/16 17:50 23:30 04:15 WBC RBC Hgb Hct MCV MCH MCHC RDW Plt Count Lymph % (Auto) [place] % (Auto) Lymph # [place] # Baso # Seg Neutrophils % Seg Neuts % (Manual) Lymphocytes % (Manual) Monocytes % (Manual) Eosinophils % (Manual) Basophils % (Manual) Nucleated RBC % Seg Neutrophils # Seg Neutrophils # Man Lymphocytes # (Manual) Monocytes # (Manual) Eosinophils # (Manual) Basophils # (Manual) PT INR Fibrinogen dRVVT Confirm Interp Factor V Activity POC ABG pH POC ABG pCO2 POC ABG pO2 ABG pO2 ABG HCO3 ABG Base Excess ABG Hemoglobin Oxyhemoglobin Sodium Potassium Chloride 96.4 L Carbon Dioxide 21 L BUN 57 H Creatinine 2.1 H Glucose 151 H POC Glucose 146 H 141 H Lactic Acid Calcium 8.3 L Phosphorus Magnesium Direct Bilirubin AST ALT Alkaline Phosphatase Lactate Dehydrogenase Troponin T C-Reactive Protein Total Protein Albumin Prealbumin Triglycerides Cholesterol LDL Cholesterol Direct HDL Cholesterol Urine pH Urine WBC (Auto) Urine Creatinine Urine Total Protein Fluid Total Protein Vancomycin Trough Rheumatoid Factor Complement C4 Miscellaneous Test Crossmatch 10/11/16 10/11/16 10/11/16 04:15 04:15 05:30 WBC 28.3 H RBC 3.12 L Hgb 9.3 L Hct 28.7 L D MCV MCH MCHC RDW 17.7 H Plt Count 128 L Lymph % (Auto) [place] % (Auto) Lymph # [place] # Baso # Seg Neutrophils % Seg Neuts % (Manual) Lymphocytes % (Manual) Monocytes % (Manual) Eosinophils % (Manual) Basophils % (Manual) Nucleated RBC % Seg Neutrophils # Seg Neutrophils # Man Lymphocytes # (Manual) Monocytes # (Manual) Eosinophils # (Manual) Basophils # (Manual) PT INR Fibrinogen dRVVT Confirm Interp Factor V Activity POC ABG pH POC ABG pCO2 POC ABG pO2 ABG pO2 ABG HCO3 ABG Base Excess ABG Hemoglobin Oxyhemoglobin Sodium Potassium Chloride Carbon Dioxide BUN Creatinine Glucose POC Glucose 167 H Lactic Acid Calcium Phosphorus Magnesium Direct Bilirubin AST ALT Alkaline Phosphatase Lactate Dehydrogenase Troponin T C-Reactive Protein 15.80 H Total Protein Albumin Prealbumin Triglycerides Cholesterol LDL Cholesterol Direct HDL Cholesterol Urine pH Urine WBC (Auto) Urine Creatinine Urine Total Protein Fluid Total Protein Vancomycin Trough Rheumatoid Factor Complement C4 Miscellaneous Test Crossmatch 10/11/16 10/11/16 10/11/16 11:40 15:49 23:57 WBC RBC Hgb Hct MCV MCH MCHC RDW Plt Count Lymph % (Auto) [place] % (Auto) Lymph # [place] # Baso # Seg Neutrophils % Seg Neuts % (Manual) Lymphocytes % (Manual) Monocytes % (Manual) Eosinophils % (Manual) Basophils % (Manual) Nucleated RBC % Seg Neutrophils # Seg Neutrophils # Man Lymphocytes # (Manual) Monocytes # (Manual) Eosinophils # (Manual) Basophils # (Manual) PT INR Fibrinogen dRVVT Confirm Interp Factor V Activity POC ABG pH POC ABG pCO2 POC ABG pO2 ABG pO2 ABG HCO3 ABG Base Excess ABG Hemoglobin Oxyhemoglobin Sodium Potassium Chloride Carbon Dioxide BUN Creatinine Glucose POC Glucose 139 H 168 H 161 H Lactic Acid Calcium Phosphorus Magnesium Direct Bilirubin AST ALT Alkaline Phosphatase Lactate Dehydrogenase Troponin T C-Reactive Protein Total Protein Albumin Prealbumin Triglycerides Cholesterol LDL Cholesterol Direct HDL Cholesterol Urine pH Urine WBC (Auto) Urine Creatinine Urine Total Protein Fluid Total Protein Vancomycin Trough Rheumatoid Factor Complement C4 Miscellaneous Test Crossmatch 10/12/16 10/12/16 10/12/16 04:40 04:40 05:44 WBC 22.5 H RBC 2.88 L Hgb 8.8 L Hct 26.8 L MCV MCH MCHC RDW 17.8 H Plt Count Lymph % (Auto) [place] % (Auto) Lymph # [place] # Baso # Seg Neutrophils % Seg Neuts % (Manual) Lymphocytes % (Manual) Monocytes % (Manual) Eosinophils % (Manual) Basophils % (Manual) Nucleated RBC % Seg Neutrophils # Seg Neutrophils # Man Lymphocytes # (Manual) Monocytes # (Manual) Eosinophils # (Manual) Basophils # (Manual) PT INR Fibrinogen dRVVT Confirm Interp Factor V Activity POC ABG pH POC ABG pCO2 POC ABG pO2 ABG pO2 ABG HCO3 ABG Base Excess ABG Hemoglobin Oxyhemoglobin Sodium 134 L Potassium Chloride 93.0 L Carbon Dioxide BUN 74 H Creatinine 2.5 H Glucose 137 H POC Glucose 158 H Lactic Acid Calcium 8.2 L Phosphorus Magnesium Direct Bilirubin AST ALT Alkaline Phosphatase Lactate Dehydrogenase Troponin T C-Reactive Protein Total Protein Albumin Prealbumin Triglycerides Cholesterol LDL Cholesterol Direct HDL Cholesterol Urine pH Urine WBC (Auto) Urine Creatinine Urine Total Protein Fluid Total Protein Vancomycin Trough Rheumatoid Factor Complement C4 Miscellaneous Test Crossmatch 10/12/16 10/12/16 10/12/16 12:27 18:18 23:46 WBC RBC Hgb Hct MCV MCH MCHC RDW Plt Count Lymph % (Auto) [place] % (Auto) Lymph # [place] # Baso # Seg Neutrophils % Seg Neuts % (Manual) Lymphocytes % (Manual) Monocytes % (Manual) Eosinophils % (Manual) Basophils % (Manual) Nucleated RBC % Seg Neutrophils # Seg Neutrophils # Man Lymphocytes # (Manual) Monocytes # (Manual) Eosinophils # (Manual) Basophils # (Manual) PT INR Fibrinogen dRVVT Confirm Interp Factor V Activity POC ABG pH POC ABG pCO2 POC ABG pO2 ABG pO2 ABG HCO3 ABG Base Excess ABG Hemoglobin Oxyhemoglobin Sodium Potassium Chloride Carbon Dioxide BUN Creatinine Glucose POC Glucose 153 H 140 H 150 H Lactic Acid Calcium Phosphorus Magnesium Direct Bilirubin AST ALT Alkaline Phosphatase Lactate Dehydrogenase Troponin T C-Reactive Protein Total Protein Albumin Prealbumin Triglycerides Cholesterol LDL Cholesterol Direct HDL Cholesterol Urine pH Urine WBC (Auto) Urine Creatinine Urine Total Protein Fluid Total Protein Vancomycin Trough Rheumatoid Factor Complement C4 Miscellaneous Test Crossmatch 10/13/16 10/13/16 10/13/16 06:22 09:20 12:29 WBC RBC Hgb Hct MCV MCH MCHC RDW Plt Count Lymph % (Auto) [place] % (Auto) Lymph # [place] # Baso # Seg Neutrophils % Seg Neuts % (Manual) Lymphocytes % (Manual) Monocytes % (Manual) Eosinophils % (Manual) Basophils % (Manual) Nucleated RBC % Seg Neutrophils # Seg Neutrophils # Man Lymphocytes # (Manual) Monocytes # (Manual) Eosinophils # (Manual) Basophils # (Manual) PT INR Fibrinogen dRVVT Confirm Interp Factor V Activity POC ABG pH POC ABG pCO2 POC ABG pO2 ABG pO2 ABG HCO3 ABG Base Excess ABG Hemoglobin Oxyhemoglobin Sodium Potassium Chloride Carbon Dioxide BUN Creatinine Glucose POC Glucose 165 H 193 H Lactic Acid Calcium Phosphorus Magnesium Direct Bilirubin AST ALT Alkaline Phosphatase Lactate Dehydrogenase Troponin T C-Reactive Protein Total Protein Albumin Prealbumin Triglycerides Cholesterol LDL Cholesterol Direct HDL Cholesterol Urine pH Urine WBC (Auto) Urine Creatinine Urine Total Protein Fluid Total Protein Vancomycin Trough Rheumatoid Factor Complement C4 Miscellaneous Test Flexitest 1 H Crossmatch 10/13/16 10/13/16 10/13/16 18:09 Unknown Unknown WBC 23.4 H RBC 2.83 L Hgb 8.7 L Hct 26.1 L MCV MCH MCHC RDW 18.1 H Plt Count Lymph % (Auto) [place] % (Auto) Lymph # [place] # Baso # Seg Neutrophils % Seg Neuts % (Manual) Lymphocytes % (Manual) Monocytes % (Manual) Eosinophils % (Manual) Basophils % (Manual) Nucleated RBC % Seg Neutrophils # Seg Neutrophils # Man Lymphocytes # (Manual) Monocytes # (Manual) Eosinophils # (Manual) Basophils # (Manual) PT INR Fibrinogen dRVVT Confirm Interp Factor V Activity POC ABG pH POC ABG pCO2 POC ABG pO2 ABG pO2 ABG HCO3 ABG Base Excess ABG Hemoglobin Oxyhemoglobin Sodium Potassium Chloride 95.8 L Carbon Dioxide BUN 82 H Creatinine 2.6 H Glucose 152 H POC Glucose 166 H Lactic Acid Calcium Phosphorus Magnesium Direct Bilirubin AST ALT Alkaline Phosphatase Lactate Dehydrogenase Troponin T C-Reactive Protein Total Protein Albumin Prealbumin Triglycerides Cholesterol LDL Cholesterol Direct HDL Cholesterol Urine pH Urine WBC (Auto) Urine Creatinine Urine Total Protein Fluid Total Protein Vancomycin Trough Rheumatoid Factor Complement C4 Miscellaneous Test Crossmatch 10/14/16 10/14/16 10/14/16 05:38 06:35 08:10 WBC 20.7 H RBC 2.81 L Hgb 8.4 L Hct 27.2 L MCV MCH MCHC RDW 19.4 H Plt Count Lymph % (Auto) [place] % (Auto) Lymph # [place] # Baso # Seg Neutrophils % Seg Neuts % (Manual) Lymphocytes % (Manual) Monocytes % (Manual) Eosinophils % (Manual) Basophils % (Manual) Nucleated RBC % Seg Neutrophils # Seg Neutrophils # Man Lymphocytes # (Manual) Monocytes # (Manual) Eosinophils # (Manual) Basophils # (Manual) PT INR Fibrinogen dRVVT Confirm Interp Factor V Activity POC ABG pH POC ABG pCO2 POC ABG pO2 ABG pO2 ABG HCO3 ABG Base Excess ABG Hemoglobin Oxyhemoglobin Sodium Potassium Chloride Carbon Dioxide BUN 58 H Creatinine 1.9 H Glucose 169 H POC Glucose 195 H Lactic Acid Calcium Phosphorus Magnesium Direct Bilirubin AST ALT Alkaline Phosphatase Lactate Dehydrogenase Troponin T C-Reactive Protein Total Protein Albumin Prealbumin Triglycerides Cholesterol LDL Cholesterol Direct HDL Cholesterol Urine pH Urine WBC (Auto) Urine Creatinine Urine Total Protein Fluid Total Protein Vancomycin Trough Rheumatoid Factor Complement C4 Miscellaneous Test Crossmatch 10/14/16 10/14/16 10/14/16 11:44 17:13 23:28 WBC RBC Hgb Hct MCV MCH MCHC RDW Plt Count Lymph % (Auto) [place] % (Auto) Lymph # [place] # Baso # Seg Neutrophils % Seg Neuts % (Manual) Lymphocytes % (Manual) Monocytes % (Manual) Eosinophils % (Manual) Basophils % (Manual) Nucleated RBC % Seg Neutrophils # Seg Neutrophils # Man Lymphocytes # (Manual) Monocytes # (Manual) Eosinophils # (Manual) Basophils # (Manual) PT INR Fibrinogen dRVVT Confirm Interp Factor V Activity POC ABG pH POC ABG pCO2 POC ABG pO2 ABG pO2 ABG HCO3 ABG Base Excess ABG Hemoglobin Oxyhemoglobin Sodium Potassium Chloride Carbon Dioxide BUN Creatinine Glucose POC Glucose 174 H 121 H 151 H Lactic Acid Calcium Phosphorus Magnesium Direct Bilirubin AST ALT Alkaline Phosphatase Lactate Dehydrogenase Troponin T C-Reactive Protein Total Protein Albumin Prealbumin Triglycerides Cholesterol LDL Cholesterol Direct HDL Cholesterol Urine pH Urine WBC (Auto) Urine Creatinine Urine Total Protein Fluid Total Protein Vancomycin Trough Rheumatoid Factor Complement C4 Miscellaneous Test Crossmatch 10/15/16 10/15/16 10/15/16 05:06 12:26 17:48 WBC RBC Hgb Hct MCV MCH MCHC RDW Plt Count Lymph % (Auto) Trigg % (Auto) Lymph # Trigg # Baso # Seg Neutrophils % Seg Neuts % (Manual) Lymphocytes % (Manual) Monocytes % (Manual) Eosinophils % (Manual) Basophils % (Manual) Nucleated RBC % Seg Neutrophils # Seg Neutrophils # Man Lymphocytes # (Manual) Monocytes # (Manual) Eosinophils # (Manual) Basophils # (Manual) PT INR Fibrinogen dRVVT Confirm Interp Factor V Activity POC ABG pH POC ABG pCO2 POC ABG pO2 ABG pO2 ABG HCO3 ABG Base Excess ABG Hemoglobin Oxyhemoglobin Sodium Potassium Chloride Carbon Dioxide BUN Creatinine Glucose POC Glucose 151 H 149 H 153 H Lactic Acid Calcium Phosphorus Magnesium Direct Bilirubin AST ALT Alkaline Phosphatase Lactate Dehydrogenase Troponin T C-Reactive Protein Total Protein Albumin Prealbumin Triglycerides Cholesterol LDL Cholesterol Direct HDL Cholesterol Urine pH Urine WBC (Auto) Urine Creatinine Urine Total Protein Fluid Total Protein Vancomycin Trough Rheumatoid Factor Complement C4 Miscellaneous Test Crossmatch 10/15/16 10/15/16 10/16/16 Unknown Unknown 00:02 WBC 23.4 H RBC 2.78 L Hgb 8.5 L Hct 25.7 L MCV MCH MCHC RDW 18.7 H Plt Count Lymph % (Auto) Trigg % (Auto) Lymph # Trigg # Baso # Seg Neutrophils % Seg Neuts % (Manual) Lymphocytes % (Manual) Monocytes % (Manual) Eosinophils % (Manual) Basophils % (Manual) Nucleated RBC % Seg Neutrophils # Seg Neutrophils # Man Lymphocytes # (Manual) Monocytes # (Manual) Eosinophils # (Manual) Basophils # (Manual) PT INR Fibrinogen dRVVT Confirm Interp Factor V Activity POC ABG pH POC ABG pCO2 POC ABG pO2 ABG pO2 ABG HCO3 ABG Base Excess ABG Hemoglobin Oxyhemoglobin Sodium Potassium Chloride Carbon Dioxide BUN 73 H Creatinine 2.3 H Glucose 120 H POC Glucose 137 H Lactic Acid Calcium Phosphorus Magnesium Direct Bilirubin AST ALT Alkaline Phosphatase Lactate Dehydrogenase Troponin T C-Reactive Protein Total Protein Albumin Prealbumin Triglycerides Cholesterol LDL Cholesterol Direct HDL Cholesterol Urine pH Urine WBC (Auto) Urine Creatinine Urine Total Protein Fluid Total Protein Vancomycin Trough Rheumatoid Factor Complement C4 Miscellaneous Test Crossmatch 10/16/16 10/16/16 10/16/16 05:44 06:25 06:25 WBC 22.5 H RBC 2.76 L Hgb 8.3 L Hct 25.2 L MCV MCH MCHC RDW 18.3 H Plt Count Lymph % (Auto) [place] % (Auto) Lymph # Trigg # Baso # Seg Neutrophils % Seg Neuts % (Manual) Lymphocytes % (Manual) Monocytes % (Manual) Eosinophils % (Manual) Basophils % (Manual) Nucleated RBC % Seg Neutrophils # Seg Neutrophils # Man Lymphocytes # (Manual) Monocytes # (Manual) Eosinophils # (Manual) Basophils # (Manual) PT INR Fibrinogen dRVVT Confirm Interp Factor V Activity POC ABG pH POC ABG pCO2 POC ABG pO2 ABG pO2 ABG HCO3 ABG Base Excess ABG Hemoglobin Oxyhemoglobin Sodium Potassium Chloride Carbon Dioxide BUN 92 H Creatinine 3.0 H Glucose 138 H POC Glucose 110 H Lactic Acid Calcium Phosphorus Magnesium Direct Bilirubin AST ALT Alkaline Phosphatase Lactate Dehydrogenase Troponin T C-Reactive Protein Total Protein Albumin Prealbumin Triglycerides Cholesterol LDL Cholesterol Direct HDL Cholesterol Urine pH Urine WBC (Auto) Urine Creatinine Urine Total Protein Fluid Total Protein Vancomycin Trough Rheumatoid Factor Complement C4 Miscellaneous Test Crossmatch 10/16/16 10/16/16 10/16/16 11:27 11:48 17:36 WBC RBC Hgb Hct MCV MCH MCHC RDW Plt Count Lymph % (Auto) [place] % (Auto) Lymph # Trigg # Baso # Seg Neutrophils % Seg Neuts % (Manual) Lymphocytes % (Manual) Monocytes % (Manual) Eosinophils % (Manual) Basophils % (Manual) Nucleated RBC % Seg Neutrophils # Seg Neutrophils # Man Lymphocytes # (Manual) Monocytes # (Manual) Eosinophils # (Manual) Basophils # (Manual) PT INR Fibrinogen dRVVT Confirm Interp Factor V Activity POC ABG pH 7.582 H POC ABG pCO2 27.4 L POC ABG pO2 110 H ABG pO2 ABG HCO3 ABG Base Excess ABG Hemoglobin Oxyhemoglobin Sodium Potassium Chloride Carbon Dioxide BUN Creatinine Glucose POC Glucose 121 H 133 H Lactic Acid Calcium Phosphorus Magnesium Direct Bilirubin AST ALT Alkaline Phosphatase Lactate Dehydrogenase Troponin T C-Reactive Protein Total Protein Albumin Prealbumin Triglycerides Cholesterol LDL Cholesterol Direct HDL Cholesterol Urine pH Urine WBC (Auto) Urine Creatinine Urine Total Protein Fluid Total Protein Vancomycin Trough Rheumatoid Factor Complement C4 Miscellaneous Test Crossmatch 10/16/16 10/17/16 10/17/16 20:48 04:24 04:24 WBC 21.4 H RBC 2.72 L Hgb 8.0 L Hct 25.2 L MCV MCH MCHC RDW 18.0 H Plt Count Lymph % (Auto) [place] % (Auto) Lymph # Trigg # Baso # Seg Neutrophils % Seg Neuts % (Manual) Lymphocytes % (Manual) Monocytes % (Manual) Eosinophils % (Manual) Basophils % (Manual) Nucleated RBC % Seg Neutrophils # Seg Neutrophils # Man Lymphocytes # (Manual) Monocytes # (Manual) Eosinophils # (Manual) Basophils # (Manual) PT INR Fibrinogen dRVVT Confirm Interp Factor V Activity POC ABG pH 7.561 H POC ABG pCO2 24.4 L POC ABG pO2 77 L ABG pO2 ABG HCO3 ABG Base Excess ABG Hemoglobin Oxyhemoglobin Sodium 148 H Potassium Chloride Carbon Dioxide BUN 104 H Creatinine 3.0 H Glucose 149 H POC Glucose Lactic Acid Calcium Phosphorus Magnesium Direct Bilirubin AST ALT Alkaline Phosphatase 138 H Lactate Dehydrogenase Troponin T C-Reactive Protein Total Protein 6.2 L Albumin 1.5 L Prealbumin Triglycerides Cholesterol LDL Cholesterol Direct HDL Cholesterol Urine pH Urine WBC (Auto) Urine Creatinine Urine Total Protein Fluid Total Protein Vancomycin Trough Rheumatoid Factor Complement C4 Miscellaneous Test Crossmatch 10/17/16 10/17/16 10/17/16 06:02 12:17 17:14 WBC RBC Hgb Hct MCV MCH MCHC RDW Plt Count Lymph % (Auto) [place] % (Auto) Lymph # Trigg # Baso # Seg Neutrophils % Seg Neuts % (Manual) Lymphocytes % (Manual) Monocytes % (Manual) Eosinophils % (Manual) Basophils % (Manual) Nucleated RBC % Seg Neutrophils # Seg Neutrophils # Man Lymphocytes # (Manual) Monocytes # (Manual) Eosinophils # (Manual) Basophils # (Manual) PT INR Fibrinogen dRVVT Confirm Interp Factor V Activity POC ABG pH POC ABG pCO2 POC ABG pO2 ABG pO2 ABG HCO3 ABG Base Excess ABG Hemoglobin Oxyhemoglobin Sodium Potassium Chloride Carbon Dioxide BUN Creatinine Glucose POC Glucose 170 H 167 H 126 H Lactic Acid Calcium Phosphorus Magnesium Direct Bilirubin AST ALT Alkaline Phosphatase Lactate Dehydrogenase Troponin T C-Reactive Protein Total Protein Albumin Prealbumin Triglycerides Cholesterol LDL Cholesterol Direct HDL Cholesterol Urine pH Urine WBC (Auto) Urine Creatinine Urine Total Protein Fluid Total Protein Vancomycin Trough Rheumatoid Factor Complement C4 Miscellaneous Test Crossmatch 10/17/16 10/18/16 10/18/16 23:17 04:00 04:00 WBC 20.7 H RBC 2.47 L Hgb 7.4 L Hct 22.9 L MCV MCH MCHC RDW 17.5 H Plt Count Lymph % (Auto) [place] % (Auto) Lymph # Trigg # Baso # Seg Neutrophils % Seg Neuts % (Manual) Lymphocytes % (Manual) Monocytes % (Manual) Eosinophils % (Manual) Basophils % (Manual) Nucleated RBC % Seg Neutrophils # Seg Neutrophils # Man Lymphocytes # (Manual) Monocytes # (Manual) Eosinophils # (Manual) Basophils # (Manual) PT INR Fibrinogen dRVVT Confirm Interp Factor V Activity POC ABG pH POC ABG pCO2 POC ABG pO2 ABG pO2 ABG HCO3 ABG Base Excess ABG Hemoglobin Oxyhemoglobin Sodium 149 H Potassium Chloride 107.9 H Carbon Dioxide 20 L BUN 117 H Creatinine 3.2 H Glucose 119 H POC Glucose 121 H Lactic Acid Calcium Phosphorus Magnesium Direct Bilirubin AST ALT Alkaline Phosphatase Lactate Dehydrogenase Troponin T C-Reactive Protein Total Protein Albumin Prealbumin Triglycerides Cholesterol LDL Cholesterol Direct HDL Cholesterol Urine pH Urine WBC (Auto) Urine Creatinine Urine Total Protein Fluid Total Protein Vancomycin Trough Rheumatoid Factor Complement C4 Miscellaneous Test Crossmatch 10/18/16 10/18/16 10/18/16 05:23 10:46 17:30 WBC RBC Hgb Hct MCV MCH MCHC RDW Plt Count Lymph % (Auto) [place] % (Auto) Lymph # Trigg # Baso # Seg Neutrophils % Seg Neuts % (Manual) Lymphocytes % (Manual) Monocytes % (Manual) Eosinophils % (Manual) Basophils % (Manual) Nucleated RBC % Seg Neutrophils # Seg Neutrophils # Man Lymphocytes # (Manual) Monocytes # (Manual) Eosinophils # (Manual) Basophils # (Manual) PT INR Fibrinogen dRVVT Confirm Interp Factor V Activity POC ABG pH POC ABG pCO2 POC ABG pO2 ABG pO2 ABG HCO3 ABG Base Excess ABG Hemoglobin Oxyhemoglobin Sodium Potassium Chloride Carbon Dioxide BUN Creatinine Glucose POC Glucose 119 H 155 H 124 H Lactic Acid Calcium Phosphorus Magnesium Direct Bilirubin AST ALT Alkaline Phosphatase Lactate Dehydrogenase Troponin T C-Reactive Protein Total Protein Albumin Prealbumin Triglycerides Cholesterol LDL Cholesterol Direct HDL Cholesterol Urine pH Urine WBC (Auto) Urine Creatinine Urine Total Protein Fluid Total Protein Vancomycin Trough Rheumatoid Factor Complement C4 Miscellaneous Test Crossmatch 10/19/16 10/19/16 10/19/16 04:00 04:00 05:25 WBC 17.4 H RBC 2.54 L Hgb 7.7 L Hct 23.6 L MCV MCH MCHC RDW 17.3 H Plt Count Lymph % (Auto) [place] % (Auto) Lymph # Trigg # Baso # Seg Neutrophils % Seg Neuts % (Manual) Lymphocytes % (Manual) Monocytes % (Manual) Eosinophils % (Manual) Basophils % (Manual) Nucleated RBC % Seg Neutrophils # Seg Neutrophils # Man Lymphocytes # (Manual) Monocytes # (Manual) Eosinophils # (Manual) Basophils # (Manual) PT INR Fibrinogen dRVVT Confirm Interp Factor V Activity POC ABG pH POC ABG pCO2 POC ABG pO2 ABG pO2 ABG HCO3 ABG Base Excess ABG Hemoglobin Oxyhemoglobin Sodium Potassium Chloride Carbon Dioxide BUN 72 H Creatinine 2.1 H Glucose 116 H POC Glucose 119 H Lactic Acid Calcium Phosphorus Magnesium Direct Bilirubin AST ALT Alkaline Phosphatase Lactate Dehydrogenase Troponin T C-Reactive Protein Total Protein Albumin Prealbumin Triglycerides Cholesterol LDL Cholesterol Direct HDL Cholesterol Urine pH Urine WBC (Auto) Urine Creatinine Urine Total Protein Fluid Total Protein Vancomycin Trough Rheumatoid Factor Complement C4 Miscellaneous Test Crossmatch 10/19/16 10/19/16 10/20/16 11:46 23:59 06:00 WBC RBC Hgb Hct MCV MCH MCHC RDW Plt Count Lymph % (Auto) [place] % (Auto) Lymph # Trigg # Baso # Seg Neutrophils % Seg Neuts % (Manual) Lymphocytes % (Manual) Monocytes % (Manual) Eosinophils % (Manual) Basophils % (Manual) Nucleated RBC % Seg Neutrophils # Seg Neutrophils # Man Lymphocytes # (Manual) Monocytes # (Manual) Eosinophils # (Manual) Basophils # (Manual) PT INR Fibrinogen dRVVT Confirm Interp Factor V Activity POC ABG pH POC ABG pCO2 POC ABG pO2 ABG pO2 ABG HCO3 ABG Base Excess ABG Hemoglobin Oxyhemoglobin Sodium Potassium Chloride Carbon Dioxide 17 L BUN 94 H Creatinine 2.7 H Glucose POC Glucose 116 H 117 H Lactic Acid Calcium Phosphorus Magnesium Direct Bilirubin AST ALT Alkaline Phosphatase Lactate Dehydrogenase Troponin T C-Reactive Protein Total Protein Albumin Prealbumin Triglycerides Cholesterol LDL Cholesterol Direct HDL Cholesterol Urine pH Urine WBC (Auto) Urine Creatinine Urine Total Protein Fluid Total Protein Vancomycin Trough Rheumatoid Factor Complement C4 Miscellaneous Test Crossmatch 10/20/16 10/20/16 10/20/16 06:00 11:49 16:00 WBC 19.7 H RBC 2.51 L Hgb 7.7 L Hct 23.5 L MCV MCH MCHC RDW 17.5 H Plt Count Lymph % (Auto) [place] % (Auto) Lymph # Trigg # Baso # Seg Neutrophils % Seg Neuts % (Manual) Lymphocytes % (Manual) Monocytes % (Manual) Eosinophils % (Manual) Basophils % (Manual) Nucleated RBC % Seg Neutrophils # Seg Neutrophils # Man Lymphocytes # (Manual) Monocytes # (Manual) Eosinophils # (Manual) Basophils # (Manual) PT INR Fibrinogen dRVVT Confirm Interp Factor V Activity POC ABG pH POC ABG pCO2 POC ABG pO2 ABG pO2 ABG HCO3 ABG Base Excess ABG Hemoglobin Oxyhemoglobin Sodium Potassium Chloride Carbon Dioxide BUN Creatinine Glucose POC Glucose 117 H Lactic Acid Calcium Phosphorus Magnesium Direct Bilirubin AST ALT Alkaline Phosphatase Lactate Dehydrogenase Troponin T C-Reactive Protein Total Protein Albumin Prealbumin Triglycerides Cholesterol LDL Cholesterol Direct HDL Cholesterol Urine pH Urine WBC (Auto) Urine Creatinine Urine Total Protein Fluid Total Protein Vancomycin Trough Rheumatoid Factor Complement C4 Miscellaneous Test Flexitest 1 H Crossmatch 10/20/16 10/20/16 10/21/16 18:36 23:39 04:00 WBC RBC Hgb Hct MCV MCH MCHC RDW Plt Count Lymph % (Auto) [place] % (Auto) Lymph # Trigg # Baso # Seg Neutrophils % Seg Neuts % (Manual) Lymphocytes % (Manual) Monocytes % (Manual) Eosinophils % (Manual) Basophils % (Manual) Nucleated RBC % Seg Neutrophils # Seg Neutrophils # Man Lymphocytes # (Manual) Monocytes # (Manual) Eosinophils # (Manual) Basophils # (Manual) PT INR Fibrinogen dRVVT Confirm Interp Factor V Activity POC ABG pH POC ABG pCO2 POC ABG pO2 ABG pO2 ABG HCO3 ABG Base Excess ABG Hemoglobin Oxyhemoglobin Sodium Potassium 5.4 H D Chloride Carbon Dioxide 15 L BUN 110 H Creatinine 3.0 H Glucose POC Glucose 127 H 114 H Lactic Acid Calcium Phosphorus Magnesium Direct Bilirubin AST ALT Alkaline Phosphatase Lactate Dehydrogenase Troponin T C-Reactive Protein Total Protein Albumin Prealbumin Triglycerides Cholesterol LDL Cholesterol Direct HDL Cholesterol Urine pH Urine WBC (Auto) Urine Creatinine Urine Total Protein Fluid Total Protein Vancomycin Trough Rheumatoid Factor Complement C4 Miscellaneous Test Crossmatch 10/21/16 10/21/16 10/22/16 05:54 23:46 05:18 WBC RBC Hgb Hct MCV MCH MCHC RDW Plt Count Lymph % (Auto) [place] % (Auto) Lymph # Trigg # Baso # Seg Neutrophils % Seg Neuts % (Manual) Lymphocytes % (Manual) Monocytes % (Manual) Eosinophils % (Manual) Basophils % (Manual) Nucleated RBC % Seg Neutrophils # Seg Neutrophils # Man Lymphocytes # (Manual) Monocytes # (Manual) Eosinophils # (Manual) Basophils # (Manual) PT INR Fibrinogen dRVVT Confirm Interp Factor V Activity POC ABG pH POC ABG pCO2 POC ABG pO2 ABG pO2 ABG HCO3 ABG Base Excess ABG Hemoglobin Oxyhemoglobin Sodium Potassium Chloride Carbon Dioxide BUN Creatinine Glucose POC Glucose 119 H 108 H 109 H Lactic Acid Calcium Phosphorus Magnesium Direct Bilirubin AST ALT Alkaline Phosphatase Lactate Dehydrogenase Troponin T C-Reactive Protein Total Protein Albumin Prealbumin Triglycerides Cholesterol LDL Cholesterol Direct HDL Cholesterol Urine pH Urine WBC (Auto) Urine Creatinine Urine Total Protein Fluid Total Protein Vancomycin Trough Rheumatoid Factor Complement C4 Miscellaneous Test Crossmatch 10/22/16 10/22/16 10/22/16 06:40 06:40 06:40 WBC 14.0 H RBC 2.03 L Hgb 7.0 L Hct 20.5 L MCV 98 H MCH 34 H MCHC 35 H RDW 17.8 H Plt Count Lymph % (Auto) [place] % (Auto) 9.9 H Lymph # Trigg # 1.4 H Baso # 0.2 H Seg Neutrophils % 72.0 H Seg Neuts % (Manual) Lymphocytes % (Manual) Monocytes % (Manual) Eosinophils % (Manual) Basophils % (Manual) Nucleated RBC % Seg Neutrophils # 10.0 H Seg Neutrophils # Man Lymphocytes # (Manual) Monocytes # (Manual) Eosinophils # (Manual) Basophils # (Manual) PT INR Fibrinogen dRVVT Confirm Interp Factor V Activity POC ABG pH POC ABG pCO2 POC ABG pO2 ABG pO2 ABG HCO3 ABG Base Excess ABG Hemoglobin Oxyhemoglobin Sodium 130 L D Potassium Chloride 92.4 L Carbon Dioxide 20 L BUN 50 H Creatinine 1.6 H Glucose 589 H* POC Glucose Lactic Acid Calcium 7.8 L D Phosphorus Magnesium 1.60 L Direct Bilirubin AST ALT Alkaline Phosphatase Lactate Dehydrogenase Troponin T C-Reactive Protein Total Protein Albumin Prealbumin Triglycerides Cholesterol LDL Cholesterol Direct HDL Cholesterol Urine pH Urine WBC (Auto) Urine Creatinine Urine Total Protein Fluid Total Protein Vancomycin Trough Rheumatoid Factor Complement C4 Miscellaneous Test Crossmatch 10/22/16 10/22/16 10/22/16 11:39 16:44 23:36 WBC RBC Hgb Hct MCV MCH MCHC RDW Plt Count Lymph % (Auto) [place] % (Auto) Lymph # [place]igg # Baso # Seg Neutrophils % Seg Neuts % (Manual) Lymphocytes % (Manual) Monocytes % (Manual) Eosinophils % (Manual) Basophils % (Manual) Nucleated RBC % Seg Neutrophils # Seg Neutrophils # Man Lymphocytes # (Manual) Monocytes # (Manual) Eosinophils # (Manual) Basophils # (Manual) PT INR Fibrinogen dRVVT Confirm Interp Factor V Activity POC ABG pH POC ABG pCO2 POC ABG pO2 ABG pO2 ABG HCO3 ABG Base Excess ABG Hemoglobin Oxyhemoglobin Sodium Potassium Chloride Carbon Dioxide BUN Creatinine Glucose POC Glucose 142 H 163 H 123 H Lactic Acid Calcium Phosphorus Magnesium Direct Bilirubin AST ALT Alkaline Phosphatase Lactate Dehydrogenase Troponin T C-Reactive Protein Total Protein Albumin Prealbumin Triglycerides Cholesterol LDL Cholesterol Direct HDL Cholesterol Urine pH Urine WBC (Auto) Urine Creatinine Urine Total Protein Fluid Total Protein Vancomycin Trough Rheumatoid Factor Complement C4 Miscellaneous Test Crossmatch 10/23/16 10/23/16 10/23/16 04:58 06:00 12:12 WBC RBC Hgb Hct MCV MCH MCHC RDW Plt Count Lymph % (Auto) [place] % (Auto) Lymph # Trigg # Baso # Seg Neutrophils % Seg Neuts % (Manual) Lymphocytes % (Manual) Monocytes % (Manual) Eosinophils % (Manual) Basophils % (Manual) Nucleated RBC % Seg Neutrophils # Seg Neutrophils # Man Lymphocytes # (Manual) Monocytes # (Manual) Eosinophils # (Manual) Basophils # (Manual) PT INR Fibrinogen dRVVT Confirm Interp Factor V Activity POC ABG pH POC ABG pCO2 POC ABG pO2 ABG pO2 ABG HCO3 ABG Base Excess ABG Hemoglobin Oxyhemoglobin Sodium 133 L Potassium 3.5 L Chloride 96.1 L Carbon Dioxide 18 L BUN 76 H Creatinine 2.1 H Glucose POC Glucose 133 H 138 H Lactic Acid Calcium 8.3 L Phosphorus Magnesium Direct Bilirubin AST ALT Alkaline Phosphatase Lactate Dehydrogenase Troponin T C-Reactive Protein Total Protein Albumin Prealbumin Triglycerides Cholesterol LDL Cholesterol Direct HDL Cholesterol Urine pH Urine WBC (Auto) Urine Creatinine Urine Total Protein Fluid Total Protein Vancomycin Trough Rheumatoid Factor Complement C4 Miscellaneous Test Crossmatch 10/23/16 10/23/16 10/24/16 16:53 23:37 04:00 WBC RBC Hgb Hct MCV MCH MCHC RDW Plt Count Lymph % (Auto) [place] % (Auto) Lymph # Trigg # Baso # Seg Neutrophils % Seg Neuts % (Manual) Lymphocytes % (Manual) Monocytes % (Manual) Eosinophils % (Manual) Basophils % (Manual) Nucleated RBC % Seg Neutrophils # Seg Neutrophils # Man Lymphocytes # (Manual) Monocytes # (Manual) Eosinophils # (Manual) Basophils # (Manual) PT INR Fibrinogen dRVVT Confirm Interp Factor V Activity POC ABG pH POC ABG pCO2 POC ABG pO2 ABG pO2 ABG HCO3 ABG Base Excess ABG Hemoglobin Oxyhemoglobin Sodium 131 L Potassium Chloride 94.5 L Carbon Dioxide 19 L BUN 97 H Creatinine 2.6 H Glucose 110 H POC Glucose 125 H 123 H Lactic Acid Calcium 8.3 L Phosphorus Magnesium Direct Bilirubin AST ALT Alkaline Phosphatase Lactate Dehydrogenase Troponin T C-Reactive Protein Total Protein Albumin Prealbumin Triglycerides Cholesterol LDL Cholesterol Direct HDL Cholesterol Urine pH Urine WBC (Auto) Urine Creatinine Urine Total Protein Fluid Total Protein Vancomycin Trough Rheumatoid Factor Complement C4 Miscellaneous Test Crossmatch 10/24/16 10/24/16 10/24/16 07:49 11:39 17:52 WBC RBC Hgb 6.0 L Hct 19.7 L* MCV MCH MCHC RDW Plt Count Lymph % (Auto) [place] % (Auto) Lymph # [place]igg # Baso # Seg Neutrophils % Seg Neuts % (Manual) Lymphocytes % (Manual) Monocytes % (Manual) Eosinophils % (Manual) Basophils % (Manual) Nucleated RBC % Seg Neutrophils # Seg Neutrophils # Man Lymphocytes # (Manual) Monocytes # (Manual) Eosinophils # (Manual) Basophils # (Manual) PT INR Fibrinogen dRVVT Confirm Interp Factor V Activity POC ABG pH POC ABG pCO2 POC ABG pO2 ABG pO2 ABG HCO3 ABG Base Excess ABG Hemoglobin Oxyhemoglobin Sodium Potassium Chloride Carbon Dioxide BUN Creatinine Glucose POC Glucose 106 H 158 H Lactic Acid Calcium Phosphorus Magnesium Direct Bilirubin AST ALT Alkaline Phosphatase Lactate Dehydrogenase Troponin T C-Reactive Protein Total Protein Albumin Prealbumin Triglycerides Cholesterol LDL Cholesterol Direct HDL Cholesterol Urine pH Urine WBC (Auto) Urine Creatinine Urine Total Protein Fluid Total Protein Vancomycin Trough Rheumatoid Factor Complement C4 Miscellaneous Test Crossmatch 10/24/16 10/24/16 10/24/16 20:00 22:27 Unknown WBC RBC Hgb 9.4 L D Hct 27.5 L D MCV MCH MCHC RDW Plt Count Lymph % (Auto) [place] % (Auto) Lymph # [place]igg # Baso # Seg Neutrophils % Seg Neuts % (Manual) Lymphocytes % (Manual) Monocytes % (Manual) Eosinophils % (Manual) Basophils % (Manual) Nucleated RBC % Seg Neutrophils # Seg Neutrophils # Man Lymphocytes # (Manual) Monocytes # (Manual) Eosinophils # (Manual) Basophils # (Manual) PT INR Fibrinogen dRVVT Confirm Interp Factor V Activity POC ABG pH POC ABG pCO2 POC ABG pO2 ABG pO2 ABG HCO3 ABG Base Excess ABG Hemoglobin Oxyhemoglobin Sodium Potassium Chloride Carbon Dioxide BUN Creatinine Glucose POC Glucose 125 H Lactic Acid Calcium Phosphorus Magnesium Direct Bilirubin AST ALT Alkaline Phosphatase Lactate Dehydrogenase Troponin T C-Reactive Protein Total Protein Albumin Prealbumin Triglycerides Cholesterol LDL Cholesterol Direct HDL Cholesterol Urine pH Urine WBC (Auto) Urine Creatinine Urine Total Protein Fluid Total Protein Vancomycin Trough Rheumatoid Factor Complement C4 Miscellaneous Test Crossmatch See Detail 10/25/16 10/25/16 10/25/16 04:00 04:00 04:00 WBC 14.2 H RBC 2.98 L Hgb 9.0 L Hct 26.2 L MCV MCH MCHC RDW 16.6 H Plt Count Lymph % (Auto) [place] % (Auto) 10.7 H Lymph # Trigg # 1.5 H Baso # Seg Neutrophils % 73.6 H Seg Neuts % (Manual) Lymphocytes % (Manual) Monocytes % (Manual) Eosinophils % (Manual) Basophils % (Manual) Nucleated RBC % Seg Neutrophils # 10.5 H Seg Neutrophils # Man Lymphocytes # (Manual) Monocytes # (Manual) Eosinophils # (Manual) Basophils # (Manual) PT INR Fibrinogen dRVVT Confirm Interp Factor V Activity POC ABG pH POC ABG pCO2 POC ABG pO2 ABG pO2 ABG HCO3 ABG Base Excess ABG Hemoglobin Oxyhemoglobin Sodium 132 L Potassium Chloride 94.7 L Carbon Dioxide BUN 51 H Creatinine 1.6 H Glucose 130 H POC Glucose Lactic Acid Calcium 8.3 L Phosphorus 1.60 L D Magnesium Direct Bilirubin AST ALT Alkaline Phosphatase Lactate Dehydrogenase Troponin T C-Reactive Protein Total Protein Albumin Prealbumin Triglycerides Cholesterol LDL Cholesterol Direct HDL Cholesterol Urine pH Urine WBC (Auto) Urine Creatinine Urine Total Protein Fluid Total Protein Vancomycin Trough Rheumatoid Factor Complement C4 Miscellaneous Test Crossmatch 10/25/16 10/25/16 10/25/16 04:32 11:48 17:22 WBC RBC Hgb Hct MCV MCH MCHC RDW Plt Count Lymph % (Auto) [place] % (Auto) Lymph # [place]igg # Baso # Seg Neutrophils % Seg Neuts % (Manual) Lymphocytes % (Manual) Monocytes % (Manual) Eosinophils % (Manual) Basophils % (Manual) Nucleated RBC % Seg Neutrophils # Seg Neutrophils # Man Lymphocytes # (Manual) Monocytes # (Manual) Eosinophils # (Manual) Basophils # (Manual) PT INR Fibrinogen dRVVT Confirm Interp Factor V Activity POC ABG pH POC ABG pCO2 POC ABG pO2 ABG pO2 ABG HCO3 ABG Base Excess ABG Hemoglobin Oxyhemoglobin Sodium Potassium Chloride Carbon Dioxide BUN Creatinine Glucose POC Glucose 124 H 171 H 120 H Lactic Acid Calcium Phosphorus Magnesium Direct Bilirubin AST ALT Alkaline Phosphatase Lactate Dehydrogenase Troponin T C-Reactive Protein Total Protein Albumin Prealbumin Triglycerides Cholesterol LDL Cholesterol Direct HDL Cholesterol Urine pH Urine WBC (Auto) Urine Creatinine Urine Total Protein Fluid Total Protein Vancomycin Trough Rheumatoid Factor Complement C4 Miscellaneous Test Crossmatch 10/26/16 10/26/16 10/26/16 04:54 07:06 07:06 WBC 16.9 H RBC 3.06 L Hgb 9.1 L Hct 26.9 L MCV MCH MCHC RDW 16.9 H Plt Count Lymph % (Auto) [place] % (Auto) Lymph # [place]igg # Baso # Seg Neutrophils % Seg Neuts % (Manual) 71.0 H Lymphocytes % (Manual) 5.0 L Monocytes % (Manual) 12.0 H Eosinophils % (Manual) Basophils % (Manual) Nucleated RBC % Seg Neutrophils # Seg Neutrophils # Man 12.0 H Lymphocytes # (Manual) 0.8 L Monocytes # (Manual) 2.0 H Eosinophils # (Manual) Basophils # (Manual) PT INR Fibrinogen dRVVT Confirm Interp Factor V Activity POC ABG pH POC ABG pCO2 POC ABG pO2 ABG pO2 ABG HCO3 ABG Base Excess ABG Hemoglobin Oxyhemoglobin Sodium 135 L Potassium Chloride 97.1 L Carbon Dioxide BUN 73 H Creatinine 2.2 H Glucose 117 H POC Glucose 123 H Lactic Acid Calcium Phosphorus 1.70 L Magnesium Direct Bilirubin AST ALT Alkaline Phosphatase Lactate Dehydrogenase Troponin T C-Reactive Protein Total Protein Albumin Prealbumin Triglycerides Cholesterol LDL Cholesterol Direct HDL Cholesterol Urine pH Urine WBC (Auto) Urine Creatinine Urine Total Protein Fluid Total Protein Vancomycin Trough Rheumatoid Factor Complement C4 Miscellaneous Test Crossmatch 10/26/16 10/26/16 10/26/16 12:12 17:29 23:42 WBC RBC Hgb Hct MCV MCH MCHC RDW Plt Count Lymph % (Auto) [place] % (Auto) Lymph # Trigg # Baso # Seg Neutrophils % Seg Neuts % (Manual) Lymphocytes % (Manual) Monocytes % (Manual) Eosinophils % (Manual) Basophils % (Manual) Nucleated RBC % Seg Neutrophils # Seg Neutrophils # Man Lymphocytes # (Manual) Monocytes # (Manual) Eosinophils # (Manual) Basophils # (Manual) PT INR Fibrinogen dRVVT Confirm Interp Factor V Activity POC ABG pH POC ABG pCO2 POC ABG pO2 ABG pO2 ABG HCO3 ABG Base Excess ABG Hemoglobin Oxyhemoglobin Sodium Potassium Chloride Carbon Dioxide BUN Creatinine Glucose POC Glucose 126 H 161 H 118 H Lactic Acid Calcium Phosphorus Magnesium Direct Bilirubin AST ALT Alkaline Phosphatase Lactate Dehydrogenase Troponin T C-Reactive Protein Total Protein Albumin Prealbumin Triglycerides Cholesterol LDL Cholesterol Direct HDL Cholesterol Urine pH Urine WBC (Auto) Urine Creatinine Urine Total Protein Fluid Total Protein Vancomycin Trough Rheumatoid Factor Complement C4 Miscellaneous Test Crossmatch 10/27/16 10/27/16 10/27/16 05:03 06:30 06:30 WBC 13.9 H RBC 3.09 L Hgb 9.2 L Hct 27.5 L MCV MCH MCHC RDW 17.0 H Plt Count Lymph % (Auto) [place] % (Auto) Lymph # [place] # Baso # Seg Neutrophils % Seg Neuts % (Manual) 78.0 H Lymphocytes % (Manual) Monocytes % (Manual) Eosinophils % (Manual) Basophils % (Manual) Nucleated RBC % 2.0 H Seg Neutrophils # Seg Neutrophils # Man 10.8 H Lymphocytes # (Manual) Monocytes # (Manual) 1.0 H Eosinophils # (Manual) Basophils # (Manual) PT INR Fibrinogen dRVVT Confirm Interp Factor V Activity POC ABG pH POC ABG pCO2 POC ABG pO2 ABG pO2 ABG HCO3 ABG Base Excess ABG Hemoglobin Oxyhemoglobin Sodium Potassium Chloride Carbon Dioxide BUN 40 H Creatinine 1.5 H Glucose 135 H POC Glucose 107 H Lactic Acid Calcium 8.3 L Phosphorus 1.30 L D Magnesium Direct Bilirubin AST ALT Alkaline Phosphatase Lactate Dehydrogenase Troponin T C-Reactive Protein Total Protein Albumin Prealbumin Triglycerides Cholesterol LDL Cholesterol Direct HDL Cholesterol Urine pH Urine WBC (Auto) Urine Creatinine Urine Total Protein Fluid Total Protein Vancomycin Trough Rheumatoid Factor Complement C4 Miscellaneous Test Crossmatch 10/27/16 10/27/16 10/27/16 13:27 18:07 23:40 WBC RBC Hgb Hct MCV MCH MCHC RDW Plt Count Lymph % (Auto) [place] % (Auto) Lymph # [place] # Baso # Seg Neutrophils % Seg Neuts % (Manual) Lymphocytes % (Manual) Monocytes % (Manual) Eosinophils % (Manual) Basophils % (Manual) Nucleated RBC % Seg Neutrophils # Seg Neutrophils # Man Lymphocytes # (Manual) Monocytes # (Manual) Eosinophils # (Manual) Basophils # (Manual) PT INR Fibrinogen dRVVT Confirm Interp Factor V Activity POC ABG pH POC ABG pCO2 POC ABG pO2 ABG pO2 ABG HCO3 ABG Base Excess ABG Hemoglobin Oxyhemoglobin Sodium Potassium Chloride Carbon Dioxide BUN Creatinine Glucose POC Glucose 117 H 121 H 118 H Lactic Acid Calcium Phosphorus Magnesium Direct Bilirubin AST ALT Alkaline Phosphatase Lactate Dehydrogenase Troponin T C-Reactive Protein Total Protein Albumin Prealbumin Triglycerides Cholesterol LDL Cholesterol Direct HDL Cholesterol Urine pH Urine WBC (Auto) Urine Creatinine Urine Total Protein Fluid Total Protein Vancomycin Trough Rheumatoid Factor Complement C4 Miscellaneous Test Crossmatch 10/28/16 10/28/16 10/28/16 05:48 06:45 06:45 WBC 14.7 H RBC 3.05 L Hgb 9.0 L Hct 26.9 L MCV MCH MCHC RDW 16.8 H Plt Count Lymph % (Auto) 8.2 L [place] % (Auto) 8.4 H Lymph # [place]igg # 1.2 H Baso # Seg Neutrophils % 81.9 H Seg Neuts % (Manual) Lymphocytes % (Manual) Monocytes % (Manual) Eosinophils % (Manual) Basophils % (Manual) Nucleated RBC % Seg Neutrophils # 12.1 H Seg Neutrophils # Man Lymphocytes # (Manual) Monocytes # (Manual) Eosinophils # (Manual) Basophils # (Manual) PT INR Fibrinogen dRVVT Confirm Interp Factor V Activity POC ABG pH POC ABG pCO2 POC ABG pO2 ABG pO2 ABG HCO3 ABG Base Excess ABG Hemoglobin Oxyhemoglobin Sodium Potassium Chloride Carbon Dioxide BUN 60 H Creatinine 1.9 H Glucose 120 H POC Glucose 114 H Lactic Acid Calcium Phosphorus Magnesium Direct Bilirubin AST ALT Alkaline Phosphatase Lactate Dehydrogenase Troponin T C-Reactive Protein Total Protein Albumin Prealbumin Triglycerides Cholesterol LDL Cholesterol Direct HDL Cholesterol Urine pH Urine WBC (Auto) Urine Creatinine Urine Total Protein Fluid Total Protein Vancomycin Trough Rheumatoid Factor Complement C4 Miscellaneous Test Crossmatch 10/28/16 10/28/16 10/29/16 17:08 23:50 05:10 WBC RBC Hgb Hct MCV MCH MCHC RDW Plt Count Lymph % (Auto) [place] % (Auto) Lymph # [place] # Baso # Seg Neutrophils % Seg Neuts % (Manual) Lymphocytes % (Manual) Monocytes % (Manual) Eosinophils % (Manual) Basophils % (Manual) Nucleated RBC % Seg Neutrophils # Seg Neutrophils # Man Lymphocytes # (Manual) Monocytes # (Manual) Eosinophils # (Manual) Basophils # (Manual) PT INR Fibrinogen dRVVT Confirm Interp Factor V Activity POC ABG pH POC ABG pCO2 POC ABG pO2 ABG pO2 ABG HCO3 ABG Base Excess ABG Hemoglobin Oxyhemoglobin Sodium Potassium Chloride Carbon Dioxide BUN Creatinine Glucose POC Glucose 109 H 110 H 124 H Lactic Acid Calcium Phosphorus Magnesium Direct Bilirubin AST ALT Alkaline Phosphatase Lactate Dehydrogenase Troponin T C-Reactive Protein Total Protein Albumin Prealbumin Triglycerides Cholesterol LDL Cholesterol Direct HDL Cholesterol Urine pH Urine WBC (Auto) Urine Creatinine Urine Total Protein Fluid Total Protein Vancomycin Trough Rheumatoid Factor Complement C4 Miscellaneous Test Crossmatch 10/29/16 10/29/16 10/29/16 07:45 07:45 12:19 WBC 14.7 H RBC 3.15 L Hgb 9.3 L Hct 28.9 L MCV MCH MCHC RDW 17.0 H Plt Count Lymph % (Auto) 11.9 L [place] % (Auto) 8.6 H Lymph # [place] # 1.3 H Baso # Seg Neutrophils % 78.1 H Seg Neuts % (Manual) Lymphocytes % (Manual) Monocytes % (Manual) Eosinophils % (Manual) Basophils % (Manual) Nucleated RBC % Seg Neutrophils # 11.4 H Seg Neutrophils # Man Lymphocytes # (Manual) Monocytes # (Manual) Eosinophils # (Manual) Basophils # (Manual) PT INR Fibrinogen dRVVT Confirm Interp Factor V Activity POC ABG pH POC ABG pCO2 POC ABG pO2 ABG pO2 ABG HCO3 ABG Base Excess ABG Hemoglobin Oxyhemoglobin Sodium Potassium 5.1 H Chloride Carbon Dioxide 19 L BUN 78 H Creatinine 2.2 H Glucose 116 H POC Glucose 118 H Lactic Acid Calcium Phosphorus Magnesium Direct Bilirubin AST ALT Alkaline Phosphatase Lactate Dehydrogenase Troponin T C-Reactive Protein Total Protein Albumin Prealbumin Triglycerides Cholesterol LDL Cholesterol Direct HDL Cholesterol Urine pH Urine WBC (Auto) Urine Creatinine Urine Total Protein Fluid Total Protein Vancomycin Trough Rheumatoid Factor Complement C4 Miscellaneous Test Crossmatch 10/29/16 10/30/16 10/30/16 17:49 01:52 03:28 WBC RBC Hgb Hct MCV MCH MCHC RDW Plt Count Lymph % (Auto) [place] % (Auto) Lymph # [place] # Baso # Seg Neutrophils % Seg Neuts % (Manual) Lymphocytes % (Manual) Monocytes % (Manual) Eosinophils % (Manual) Basophils % (Manual) Nucleated RBC % Seg Neutrophils # Seg Neutrophils # Man Lymphocytes # (Manual) Monocytes # (Manual) Eosinophils # (Manual) Basophils # (Manual) PT INR Fibrinogen dRVVT Confirm Interp Factor V Activity POC ABG pH POC ABG pCO2 POC ABG pO2 ABG pO2 ABG HCO3 ABG Base Excess ABG Hemoglobin Oxyhemoglobin Sodium Potassium 5.4 H Chloride 97.5 L Carbon Dioxide 19 L BUN 90 H Creatinine 2.5 H Glucose POC Glucose 120 H 129 H Lactic Acid Calcium Phosphorus 5.20 H Magnesium Direct Bilirubin AST ALT Alkaline Phosphatase Lactate Dehydrogenase Troponin T C-Reactive Protein Total Protein Albumin Prealbumin Triglycerides Cholesterol LDL Cholesterol Direct HDL Cholesterol Urine pH Urine WBC (Auto) Urine Creatinine Urine Total Protein Fluid Total Protein Vancomycin Trough Rheumatoid Factor Complement C4 Miscellaneous Test Crossmatch 10/30/16 10/30/16 10/30/16 03:28 08:19 08:19 WBC 11.6 H 15.9 H RBC 2.75 L 2.82 L Hgb 7.9 L 8.3 L Hct 24.2 L 25.2 L MCV MCH MCHC RDW 16.7 H 17.2 H Plt Count Lymph % (Auto) [place] % (Auto) 9.8 H Lymph # [place] # 1.1 H Baso # Seg Neutrophils % 74.2 H Seg Neuts % (Manual) Lymphocytes % (Manual) Monocytes % (Manual) Eosinophils % (Manual) Basophils % (Manual) Nucleated RBC % Seg Neutrophils # 8.6 H Seg Neutrophils # Man Lymphocytes # (Manual) Monocytes # (Manual) Eosinophils # (Manual) Basophils # (Manual) PT INR Fibrinogen dRVVT Confirm Interp Factor V Activity POC ABG pH POC ABG pCO2 POC ABG pO2 ABG pO2 ABG HCO3 ABG Base Excess ABG Hemoglobin Oxyhemoglobin Sodium Potassium 5.3 H Chloride 97.4 L Carbon Dioxide 19 L BUN 93 H Creatinine 2.6 H Glucose POC Glucose Lactic Acid Calcium Phosphorus Magnesium Direct Bilirubin AST ALT Alkaline Phosphatase Lactate Dehydrogenase Troponin T C-Reactive Protein Total Protein Albumin Prealbumin Triglycerides Cholesterol LDL Cholesterol Direct HDL Cholesterol Urine pH Urine WBC (Auto) Urine Creatinine Urine Total Protein Fluid Total Protein Vancomycin Trough Rheumatoid Factor Complement C4 Miscellaneous Test Crossmatch 10/30/16 10/30/16 10/31/16 17:11 23:56 00:40 WBC RBC Hgb Hct MCV MCH MCHC RDW Plt Count Lymph % (Auto) [place] % (Auto) Lymph # [place] # Baso # Seg Neutrophils % Seg Neuts % (Manual) Lymphocytes % (Manual) Monocytes % (Manual) Eosinophils % (Manual) Basophils % (Manual) Nucleated RBC % Seg Neutrophils # Seg Neutrophils # Man Lymphocytes # (Manual) Monocytes # (Manual) Eosinophils # (Manual) Basophils # (Manual) PT INR Fibrinogen dRVVT Confirm Interp Factor V Activity POC ABG pH POC ABG pCO2 POC ABG pO2 ABG pO2 ABG HCO3 ABG Base Excess ABG Hemoglobin Oxyhemoglobin Sodium Potassium Chloride Carbon Dioxide BUN Creatinine Glucose POC Glucose 106 H 117 H 120 H Lactic Acid Calcium Phosphorus Magnesium Direct Bilirubin AST ALT Alkaline Phosphatase Lactate Dehydrogenase Troponin T C-Reactive Protein Total Protein Albumin Prealbumin Triglycerides Cholesterol LDL Cholesterol Direct HDL Cholesterol Urine pH Urine WBC (Auto) Urine Creatinine Urine Total Protein Fluid Total Protein Vancomycin Trough Rheumatoid Factor Complement C4 Miscellaneous Test Crossmatch 10/31/16 10/31/16 10/31/16 05:43 07:15 07:15 WBC 12.1 H RBC 2.63 L Hgb 7.7 L Hct 23.3 L MCV MCH MCHC RDW 16.7 H Plt Count Lymph % (Auto) 11.7 L [place] % (Auto) 7.7 H Lymph # [place] # 0.9 H Baso # Seg Neutrophils % 78.0 H Seg Neuts % (Manual) Lymphocytes % (Manual) Monocytes % (Manual) Eosinophils % (Manual) Basophils % (Manual) Nucleated RBC % Seg Neutrophils # 9.4 H Seg Neutrophils # Man Lymphocytes # (Manual) Monocytes # (Manual) Eosinophils # (Manual) Basophils # (Manual) PT INR Fibrinogen dRVVT Confirm Interp Factor V Activity POC ABG pH POC ABG pCO2 POC ABG pO2 ABG pO2 ABG HCO3 ABG Base Excess ABG Hemoglobin Oxyhemoglobin Sodium Potassium Chloride 96.4 L Carbon Dioxide 21 L BUN 99 H Creatinine 2.6 H Glucose 144 H POC Glucose 125 H Lactic Acid Calcium Phosphorus 4.80 H Magnesium Direct Bilirubin AST ALT Alkaline Phosphatase Lactate Dehydrogenase Troponin T C-Reactive Protein Total Protein Albumin Prealbumin Triglycerides Cholesterol LDL Cholesterol Direct HDL Cholesterol Urine pH Urine WBC (Auto) Urine Creatinine Urine Total Protein Fluid Total Protein Vancomycin Trough Rheumatoid Factor Complement C4 Miscellaneous Test Crossmatch 10/31/16 10/31/16 11/01/16 11:46 18:34 00:20 WBC RBC Hgb Hct MCV MCH MCHC RDW Plt Count Lymph % (Auto) [place] % (Auto) Lymph # [place] # Baso # Seg Neutrophils % Seg Neuts % (Manual) Lymphocytes % (Manual) Monocytes % (Manual) Eosinophils % (Manual) Basophils % (Manual) Nucleated RBC % Seg Neutrophils # Seg Neutrophils # Man Lymphocytes # (Manual) Monocytes # (Manual) Eosinophils # (Manual) Basophils # (Manual) PT INR Fibrinogen dRVVT Confirm Interp Factor V Activity POC ABG pH POC ABG pCO2 POC ABG pO2 ABG pO2 ABG HCO3 ABG Base Excess ABG Hemoglobin Oxyhemoglobin Sodium Potassium Chloride Carbon Dioxide BUN Creatinine Glucose POC Glucose 159 H 140 H 132 H Lactic Acid Calcium Phosphorus Magnesium Direct Bilirubin AST ALT Alkaline Phosphatase Lactate Dehydrogenase Troponin T C-Reactive Protein Total Protein Albumin Prealbumin Triglycerides Cholesterol LDL Cholesterol Direct HDL Cholesterol Urine pH Urine WBC (Auto) Urine Creatinine Urine Total Protein Fluid Total Protein Vancomycin Trough Rheumatoid Factor Complement C4 Miscellaneous Test Crossmatch 11/01/16 11/01/16 11/01/16 04:55 04:55 06:11 WBC 11.2 H RBC 2.68 L Hgb 7.5 L Hct 23.7 L MCV MCH MCHC RDW 16.1 H Plt Count Lymph % (Auto) [place] % (Auto) 9.8 H Lymph # [place] # 1.1 H Baso # Seg Neutrophils % 70.8 H Seg Neuts % (Manual) Lymphocytes % (Manual) Monocytes % (Manual) Eosinophils % (Manual) Basophils % (Manual) Nucleated RBC % Seg Neutrophils # 7.9 H Seg Neutrophils # Man Lymphocytes # (Manual) Monocytes # (Manual) Eosinophils # (Manual) Basophils # (Manual) PT INR Fibrinogen dRVVT Confirm Interp Factor V Activity POC ABG pH POC ABG pCO2 POC ABG pO2 ABG pO2 ABG HCO3 ABG Base Excess ABG Hemoglobin Oxyhemoglobin Sodium Potassium 3.3 L D Chloride Carbon Dioxide BUN 61 H Creatinine 1.9 H Glucose 114 H POC Glucose 115 H Lactic Acid Calcium Phosphorus 1.80 L D Magnesium Direct Bilirubin AST ALT Alkaline Phosphatase Lactate Dehydrogenase Troponin T C-Reactive Protein Total Protein Albumin Prealbumin Triglycerides Cholesterol LDL Cholesterol Direct HDL Cholesterol Urine pH Urine WBC (Auto) Urine Creatinine Urine Total Protein Fluid Total Protein Vancomycin Trough Rheumatoid Factor Complement C4 Miscellaneous Test Crossmatch 11/01/16 11/01/16 11/01/16 12:29 18:23 23:58 WBC RBC Hgb Hct MCV MCH MCHC RDW Plt Count Lymph % (Auto) [place] % (Auto) Lymph # [place] # Baso # Seg Neutrophils % Seg Neuts % (Manual) Lymphocytes % (Manual) Monocytes % (Manual) Eosinophils % (Manual) Basophils % (Manual) Nucleated RBC % Seg Neutrophils # Seg Neutrophils # Man Lymphocytes # (Manual) Monocytes # (Manual) Eosinophils # (Manual) Basophils # (Manual) PT INR Fibrinogen dRVVT Confirm Interp Factor V Activity POC ABG pH POC ABG pCO2 POC ABG pO2 ABG pO2 ABG HCO3 ABG Base Excess ABG Hemoglobin Oxyhemoglobin Sodium Potassium Chloride Carbon Dioxide BUN Creatinine Glucose POC Glucose 142 H 143 H 128 H Lactic Acid Calcium Phosphorus Magnesium Direct Bilirubin AST ALT Alkaline Phosphatase Lactate Dehydrogenase Troponin T C-Reactive Protein Total Protein Albumin Prealbumin Triglycerides Cholesterol LDL Cholesterol Direct HDL Cholesterol Urine pH Urine WBC (Auto) Urine Creatinine Urine Total Protein Fluid Total Protein Vancomycin Trough Rheumatoid Factor Complement C4 Miscellaneous Test Crossmatch 11/02/16 11/02/16 11/02/16 04:16 05:29 11:58 WBC RBC Hgb Hct MCV MCH MCHC RDW Plt Count Lymph % (Auto) [place] % (Auto) Lymph # [place] # Baso # Seg Neutrophils % Seg Neuts % (Manual) Lymphocytes % (Manual) Monocytes % (Manual) Eosinophils % (Manual) Basophils % (Manual) Nucleated RBC % Seg Neutrophils # Seg Neutrophils # Man Lymphocytes # (Manual) Monocytes # (Manual) Eosinophils # (Manual) Basophils # (Manual) PT INR Fibrinogen dRVVT Confirm Interp Factor V Activity POC ABG pH POC ABG pCO2 POC ABG pO2 ABG pO2 ABG HCO3 ABG Base Excess ABG Hemoglobin Oxyhemoglobin Sodium Potassium 3.1 L Chloride Carbon Dioxide BUN 73 H Creatinine 2.3 H Glucose 112 H POC Glucose 135 H 149 H Lactic Acid Calcium Phosphorus Magnesium Direct Bilirubin AST ALT Alkaline Phosphatase Lactate Dehydrogenase Troponin T C-Reactive Protein Total Protein Albumin Prealbumin Triglycerides Cholesterol LDL Cholesterol Direct HDL Cholesterol Urine pH Urine WBC (Auto) Urine Creatinine Urine Total Protein Fluid Total Protein Vancomycin Trough Rheumatoid Factor Complement C4 Miscellaneous Test Crossmatch 11/02/16 11/02/16 11/03/16 17:42 22:54 06:00 WBC RBC Hgb Hct MCV MCH MCHC RDW Plt Count Lymph % (Auto) [place] % (Auto) Lymph # [place] # Baso # Seg Neutrophils % Seg Neuts % (Manual) Lymphocytes % (Manual) Monocytes % (Manual) Eosinophils % (Manual) Basophils % (Manual) Nucleated RBC % Seg Neutrophils # Seg Neutrophils # Man Lymphocytes # (Manual) Monocytes # (Manual) Eosinophils # (Manual) Basophils # (Manual) PT INR Fibrinogen dRVVT Confirm Interp Factor V Activity POC ABG pH POC ABG pCO2 POC ABG pO2 ABG pO2 ABG HCO3 ABG Base Excess ABG Hemoglobin Oxyhemoglobin Sodium Potassium Chloride 96.7 L Carbon Dioxide BUN 41 H Creatinine 1.5 H Glucose 145 H POC Glucose 182 H 115 H Lactic Acid Calcium Phosphorus 1.60 L D Magnesium 1.50 L Direct Bilirubin AST ALT Alkaline Phosphatase Lactate Dehydrogenase Troponin T C-Reactive Protein Total Protein Albumin Prealbumin Triglycerides Cholesterol LDL Cholesterol Direct HDL Cholesterol Urine pH Urine WBC (Auto) Urine Creatinine Urine Total Protein Fluid Total Protein Vancomycin Trough Rheumatoid Factor Complement C4 Miscellaneous Test Crossmatch 11/03/16 11/03/16 11/03/16 11:53 17:45 23:37 WBC RBC Hgb Hct MCV MCH MCHC RDW Plt Count Lymph % (Auto) [place] % (Auto) Lymph # [place] # Baso # Seg Neutrophils % Seg Neuts % (Manual) Lymphocytes % (Manual) Monocytes % (Manual) Eosinophils % (Manual) Basophils % (Manual) Nucleated RBC % Seg Neutrophils # Seg Neutrophils # Man Lymphocytes # (Manual) Monocytes # (Manual) Eosinophils # (Manual) Basophils # (Manual) PT INR Fibrinogen dRVVT Confirm Interp Factor V Activity POC ABG pH POC ABG pCO2 POC ABG pO2 ABG pO2 ABG HCO3 ABG Base Excess ABG Hemoglobin Oxyhemoglobin Sodium Potassium Chloride Carbon Dioxide BUN Creatinine Glucose POC Glucose 131 H 134 H 113 H Lactic Acid Calcium Phosphorus Magnesium Direct Bilirubin AST ALT Alkaline Phosphatase Lactate Dehydrogenase Troponin T C-Reactive Protein Total Protein Albumin Prealbumin Triglycerides Cholesterol LDL Cholesterol Direct HDL Cholesterol Urine pH Urine WBC (Auto) Urine Creatinine Urine Total Protein Fluid Total Protein Vancomycin Trough Rheumatoid Factor Complement C4 Miscellaneous Test Crossmatch 11/04/16 11/04/16 11/04/16 05:41 06:00 12:10 WBC RBC Hgb Hct MCV MCH MCHC RDW Plt Count Lymph % (Auto) [place] % (Auto) Lymph # [place] # Baso # Seg Neutrophils % Seg Neuts % (Manual) Lymphocytes % (Manual) Monocytes % (Manual) Eosinophils % (Manual) Basophils % (Manual) Nucleated RBC % Seg Neutrophils # Seg Neutrophils # Man Lymphocytes # (Manual) Monocytes # (Manual) Eosinophils # (Manual) Basophils # (Manual) PT INR Fibrinogen dRVVT Confirm Interp Factor V Activity POC ABG pH POC ABG pCO2 POC ABG pO2 ABG pO2 ABG HCO3 ABG Base Excess ABG Hemoglobin Oxyhemoglobin Sodium Potassium Chloride 96.7 L Carbon Dioxide BUN 52 H Creatinine 1.9 H Glucose 126 H POC Glucose 137 H 191 H Lactic Acid Calcium Phosphorus Magnesium Direct Bilirubin AST ALT Alkaline Phosphatase Lactate Dehydrogenase Troponin T C-Reactive Protein Total Protein Albumin Prealbumin Triglycerides Cholesterol LDL Cholesterol Direct HDL Cholesterol Urine pH Urine WBC (Auto) Urine Creatinine Urine Total Protein Fluid Total Protein Vancomycin Trough Rheumatoid Factor Complement C4 Miscellaneous Test Crossmatch 11/04/16 11/05/16 11/05/16 22:57 03:10 05:10 WBC RBC Hgb Hct MCV MCH MCHC RDW Plt Count Lymph % (Auto) [place] % (Auto) Lymph # [place] # Baso # Seg Neutrophils % Seg Neuts % (Manual) Lymphocytes % (Manual) Monocytes % (Manual) Eosinophils % (Manual) Basophils % (Manual) Nucleated RBC % Seg Neutrophils # Seg Neutrophils # Man Lymphocytes # (Manual) Monocytes # (Manual) Eosinophils # (Manual) Basophils # (Manual) PT INR Fibrinogen dRVVT Confirm Interp Factor V Activity POC ABG pH POC ABG pCO2 POC ABG pO2 ABG pO2 ABG HCO3 ABG Base Excess ABG Hemoglobin Oxyhemoglobin Sodium 136 L Potassium Chloride 97.2 L Carbon Dioxide BUN 32 H Creatinine 1.3 H Glucose 123 H POC Glucose 125 H 108 H Lactic Acid Calcium 7.8 L Phosphorus Magnesium Direct Bilirubin AST ALT Alkaline Phosphatase Lactate Dehydrogenase Troponin T C-Reactive Protein Total Protein Albumin Prealbumin Triglycerides Cholesterol LDL Cholesterol Direct HDL Cholesterol Urine pH Urine WBC (Auto) Urine Creatinine Urine Total Protein Fluid Total Protein Vancomycin Trough Rheumatoid Factor Complement C4 Miscellaneous Test Crossmatch 11/05/16 11/05/16 11/05/16 12:23 13:09 13:25 WBC RBC Hgb Hct MCV MCH MCHC RDW Plt Count Lymph % (Auto) [place] % (Auto) Lymph # [place] # Baso # Seg Neutrophils % Seg Neuts % (Manual) Lymphocytes % (Manual) Monocytes % (Manual) Eosinophils % (Manual) Basophils % (Manual) Nucleated RBC % Seg Neutrophils # Seg Neutrophils # Man Lymphocytes # (Manual) Monocytes # (Manual) Eosinophils # (Manual) Basophils # (Manual) PT INR Fibrinogen dRVVT Confirm Interp Factor V Activity POC ABG pH POC ABG pCO2 POC ABG pO2 ABG pO2 ABG HCO3 ABG Base Excess ABG Hemoglobin Oxyhemoglobin Sodium Potassium Chloride Carbon Dioxide BUN Creatinine Glucose POC Glucose 124 H Lactic Acid Calcium Phosphorus Magnesium Direct Bilirubin AST ALT Alkaline Phosphatase Lactate Dehydrogenase Troponin T C-Reactive Protein 11.40 H Total Protein Albumin Prealbumin Triglycerides Cholesterol LDL Cholesterol Direct HDL Cholesterol Urine pH 9.0 H Urine WBC (Auto) Urine Creatinine Urine Total Protein Fluid Total Protein Vancomycin Trough Rheumatoid Factor Complement C4 Miscellaneous Test Crossmatch 11/05/16 11/05/16 11/05/16 13:25 17:54 23:42 WBC RBC Hgb Hct MCV MCH MCHC RDW Plt Count Lymph % (Auto) [place] % (Auto) Lymph # [place] # Baso # Seg Neutrophils % Seg Neuts % (Manual) Lymphocytes % (Manual) Monocytes % (Manual) Eosinophils % (Manual) Basophils % (Manual) Nucleated RBC % Seg Neutrophils # Seg Neutrophils # Man Lymphocytes # (Manual) Monocytes # (Manual) Eosinophils # (Manual) Basophils # (Manual) PT INR Fibrinogen dRVVT Confirm Interp Factor V Activity POC ABG pH POC ABG pCO2 POC ABG pO2 ABG pO2 ABG HCO3 ABG Base Excess ABG Hemoglobin Oxyhemoglobin Sodium Potassium Chloride Carbon Dioxide BUN Creatinine Glucose POC Glucose 114 H 134 H Lactic Acid Calcium Phosphorus Magnesium Direct Bilirubin AST ALT Alkaline Phosphatase Lactate Dehydrogenase Troponin T C-Reactive Protein Total Protein Albumin Prealbumin Triglycerides Cholesterol LDL Cholesterol Direct HDL Cholesterol Urine pH Urine WBC (Auto) Urine Creatinine Urine Total Protein Fluid Total Protein Vancomycin Trough Rheumatoid Factor Complement C4 Miscellaneous Test Flexitest 1 H Crossmatch 11/06/16 11/06/16 11/06/16 04:56 06:25 06:25 WBC RBC 2.50 L Hgb 7.3 L Hct 22.5 L MCV MCH MCHC RDW 16.9 H Plt Count Lymph % (Auto) [place] % (Auto) 10.5 H Lymph # [place] # 1.1 H Baso # Seg Neutrophils % Seg Neuts % (Manual) Lymphocytes % (Manual) Monocytes % (Manual) Eosinophils % (Manual) Basophils % (Manual) Nucleated RBC % Seg Neutrophils # Seg Neutrophils # Man Lymphocytes # (Manual) Monocytes # (Manual) Eosinophils # (Manual) Basophils # (Manual) PT INR Fibrinogen dRVVT Confirm Interp Factor V Activity POC ABG pH POC ABG pCO2 POC ABG pO2 ABG pO2 ABG HCO3 ABG Base Excess ABG Hemoglobin Oxyhemoglobin Sodium Potassium 5.1 H Chloride 95.9 L Carbon Dioxide BUN 52 H Creatinine 1.8 H Glucose 117 H POC Glucose 120 H Lactic Acid Calcium Phosphorus Magnesium Direct Bilirubin AST 103 H ALT 77 H Alkaline Phosphatase 285 H Lactate Dehydrogenase Troponin T C-Reactive Protein Total Protein 6.2 L Albumin 1.8 L Prealbumin 0.180 L Triglycerides Cholesterol LDL Cholesterol Direct HDL Cholesterol Urine pH Urine WBC (Auto) Urine Creatinine Urine Total Protein Fluid Total Protein Vancomycin Trough Rheumatoid Factor Complement C4 Miscellaneous Test Crossmatch 11/06/16 11/06/16 11/06/16 11:56 17:14 23:52 WBC RBC Hgb Hct MCV MCH MCHC RDW Plt Count Lymph % (Auto) [place] % (Auto) Lymph # [place] # Baso # Seg Neutrophils % Seg Neuts % (Manual) Lymphocytes % (Manual) Monocytes % (Manual) Eosinophils % (Manual) Basophils % (Manual) Nucleated RBC % Seg Neutrophils # Seg Neutrophils # Man Lymphocytes # (Manual) Monocytes # (Manual) Eosinophils # (Manual) Basophils # (Manual) PT INR Fibrinogen dRVVT Confirm Interp Factor V Activity POC ABG pH POC ABG pCO2 POC ABG pO2 ABG pO2 ABG HCO3 ABG Base Excess ABG Hemoglobin Oxyhemoglobin Sodium Potassium Chloride Carbon Dioxide BUN Creatinine Glucose POC Glucose 141 H 125 H 130 H Lactic Acid Calcium Phosphorus Magnesium Direct Bilirubin AST ALT Alkaline Phosphatase Lactate Dehydrogenase Troponin T C-Reactive Protein Total Protein Albumin Prealbumin Triglycerides Cholesterol LDL Cholesterol Direct HDL Cholesterol Urine pH Urine WBC (Auto) Urine Creatinine Urine Total Protein Fluid Total Protein Vancomycin Trough Rheumatoid Factor Complement C4 Miscellaneous Test Crossmatch 11/07/16 11/07/16 11/07/16 06:30 06:30 09:37 WBC RBC 2.18 L Hgb 6.3 L Hct 19.7 L* MCV MCH MCHC RDW 16.8 H Plt Count Lymph % (Auto) [place] % (Auto) 10.0 H Lymph # Trigg # 1.0 H Baso # Seg Neutrophils % Seg Neuts % (Manual) Lymphocytes % (Manual) Monocytes % (Manual) Eosinophils % (Manual) Basophils % (Manual) Nucleated RBC % Seg Neutrophils # Seg Neutrophils # Man Lymphocytes # (Manual) Monocytes # (Manual) Eosinophils # (Manual) Basophils # (Manual) PT INR Fibrinogen dRVVT Confirm Interp Factor V Activity POC ABG pH POC ABG pCO2 POC ABG pO2 ABG pO2 ABG HCO3 ABG Base Excess ABG Hemoglobin Oxyhemoglobin Sodium 135 L Potassium Chloride 95.6 L Carbon Dioxide BUN 70 H Creatinine 2.0 H Glucose 126 H POC Glucose Lactic Acid Calcium Phosphorus Magnesium Direct Bilirubin AST ALT Alkaline Phosphatase Lactate Dehydrogenase Troponin T C-Reactive Protein Total Protein Albumin Prealbumin Triglycerides Cholesterol LDL Cholesterol Direct HDL Cholesterol Urine pH Urine WBC (Auto) Urine Creatinine Urine Total Protein Fluid Total Protein Vancomycin Trough Rheumatoid Factor Complement C4 Miscellaneous Test Crossmatch See Detail 11/07/16 11/07/16 11/07/16 12:52 18:51 21:26 WBC RBC Hgb Hct MCV MCH MCHC RDW Plt Count Lymph % (Auto) [place] % (Auto) Lymph # [place] # Baso # Seg Neutrophils % Seg Neuts % (Manual) Lymphocytes % (Manual) Monocytes % (Manual) Eosinophils % (Manual) Basophils % (Manual) Nucleated RBC % Seg Neutrophils # Seg Neutrophils # Man Lymphocytes # (Manual) Monocytes # (Manual) Eosinophils # (Manual) Basophils # (Manual) PT INR Fibrinogen dRVVT Confirm Interp Factor V Activity POC ABG pH 7.523 H POC ABG pCO2 34.6 L POC ABG pO2 53 L ABG pO2 ABG HCO3 ABG Base Excess ABG Hemoglobin Oxyhemoglobin Sodium Potassium Chloride Carbon Dioxide BUN Creatinine Glucose POC Glucose 142 H 155 H Lactic Acid Calcium Phosphorus Magnesium Direct Bilirubin AST ALT Alkaline Phosphatase Lactate Dehydrogenase Troponin T C-Reactive Protein Total Protein Albumin Prealbumin Triglycerides Cholesterol LDL Cholesterol Direct HDL Cholesterol Urine pH Urine WBC (Auto) Urine Creatinine Urine Total Protein Fluid Total Protein Vancomycin Trough Rheumatoid Factor Complement C4 Miscellaneous Test Crossmatch 11/07/16 11/08/16 11/08/16 21:34 13:03 23:37 WBC RBC 2.63 L Hgb 7.7 L Hct 22.7 L MCV MCH MCHC RDW 17.0 H Plt Count Lymph % (Auto) [place] % (Auto) Lymph # [place] # Baso # Seg Neutrophils % Seg Neuts % (Manual) Lymphocytes % (Manual) Monocytes % (Manual) Eosinophils % (Manual) Basophils % (Manual) Nucleated RBC % Seg Neutrophils # Seg Neutrophils # Man Lymphocytes # (Manual) Monocytes # (Manual) Eosinophils # (Manual) Basophils # (Manual) PT INR Fibrinogen dRVVT Confirm Interp Factor V Activity POC ABG pH 7.478 H POC ABG pCO2 34.0 L POC ABG pO2 50 L ABG pO2 ABG HCO3 ABG Base Excess ABG Hemoglobin Oxyhemoglobin Sodium Potassium Chloride Carbon Dioxide BUN Creatinine Glucose POC Glucose 113 H Lactic Acid Calcium Phosphorus Magnesium Direct Bilirubin AST ALT Alkaline Phosphatase Lactate Dehydrogenase Troponin T C-Reactive Protein Total Protein Albumin Prealbumin Triglycerides Cholesterol LDL Cholesterol Direct HDL Cholesterol Urine pH Urine WBC (Auto) Urine Creatinine Urine Total Protein Fluid Total Protein Vancomycin Trough Rheumatoid Factor Complement C4 Miscellaneous Test Crossmatch 11/09/16 11/09/16 11/09/16 04:35 10:15 18:21 WBC RBC 2.68 L Hgb 7.8 L Hct 23.3 L MCV MCH MCHC RDW 17.0 H Plt Count Lymph % (Auto) [place] % (Auto) 12.1 H Lymph # [place] # 1.1 H Baso # Seg Neutrophils % Seg Neuts % (Manual) Lymphocytes % (Manual) Monocytes % (Manual) Eosinophils % (Manual) Basophils % (Manual) Nucleated RBC % Seg Neutrophils # Seg Neutrophils # Man Lymphocytes # (Manual) Monocytes # (Manual) Eosinophils # (Manual) Basophils # (Manual) PT INR Fibrinogen dRVVT Confirm Interp Factor V Activity POC ABG pH POC ABG pCO2 POC ABG pO2 ABG pO2 ABG HCO3 ABG Base Excess ABG Hemoglobin Oxyhemoglobin Sodium Potassium Chloride Carbon Dioxide BUN 51 H Creatinine 1.8 H Glucose POC Glucose 60 L Lactic Acid Calcium 8.3 L Phosphorus Magnesium Direct Bilirubin AST ALT Alkaline Phosphatase Lactate Dehydrogenase Troponin T C-Reactive Protein Total Protein Albumin Prealbumin Triglycerides Cholesterol LDL Cholesterol Direct HDL Cholesterol Urine pH Urine WBC (Auto) Urine Creatinine Urine Total Protein Fluid Total Protein Vancomycin Trough Rheumatoid Factor Complement C4 Miscellaneous Test Crossmatch 11/09/16 11/10/16 11/10/16 18:55 07:00 11:51 WBC RBC Hgb Hct MCV MCH MCHC RDW Plt Count Lymph % (Auto) [place] % (Auto) Lymph # [place] # Baso # Seg Neutrophils % Seg Neuts % (Manual) Lymphocytes % (Manual) Monocytes % (Manual) Eosinophils % (Manual) Basophils % (Manual) Nucleated RBC % Seg Neutrophils # Seg Neutrophils # Man Lymphocytes # (Manual) Monocytes # (Manual) Eosinophils # (Manual) Basophils # (Manual) PT INR Fibrinogen dRVVT Confirm Interp Factor V Activity POC ABG pH POC ABG pCO2 POC ABG pO2 ABG pO2 ABG HCO3 ABG Base Excess ABG Hemoglobin Oxyhemoglobin Sodium Potassium 3.0 L D Chloride 97.4 L Carbon Dioxide BUN 28 H Creatinine 1.3 H Glucose POC Glucose 68 L 120 H Lactic Acid Calcium 7.8 L Phosphorus Magnesium Direct Bilirubin AST ALT Alkaline Phosphatase Lactate Dehydrogenase Troponin T C-Reactive Protein Total Protein Albumin Prealbumin Triglycerides Cholesterol LDL Cholesterol Direct HDL Cholesterol Urine pH Urine WBC (Auto) Urine Creatinine Urine Total Protein Fluid Total Protein Vancomycin Trough Rheumatoid Factor Complement C4 Miscellaneous Test Crossmatch 11/10/16 11/11/16 11/11/16 14:20 06:59 06:59 WBC RBC 2.81 L Hgb 8.1 L Hct 24.4 L MCV MCH MCHC RDW 16.4 H Plt Count Lymph % (Auto) [place] % (Auto) 10.8 H Lymph # [place] # 1.0 H Baso # Seg Neutrophils % Seg Neuts % (Manual) Lymphocytes % (Manual) Monocytes % (Manual) Eosinophils % (Manual) Basophils % (Manual) Nucleated RBC % Seg Neutrophils # Seg Neutrophils # Man Lymphocytes # (Manual) Monocytes # (Manual) Eosinophils # (Manual) Basophils # (Manual) PT INR Fibrinogen dRVVT Confirm Interp Factor V Activity POC ABG pH POC ABG pCO2 POC ABG pO2 ABG pO2 ABG HCO3 ABG Base Excess ABG Hemoglobin Oxyhemoglobin Sodium Potassium Chloride Carbon Dioxide BUN Creatinine Glucose POC Glucose Lactic Acid Calcium Phosphorus Magnesium Direct Bilirubin AST ALT Alkaline Phosphatase Lactate Dehydrogenase 196 H Troponin T C-Reactive Protein Total Protein 6.1 L Albumin Prealbumin Triglycerides Cholesterol LDL Cholesterol Direct HDL Cholesterol Urine pH Urine WBC (Auto) Urine Creatinine Urine Total Protein Fluid Total Protein < 3.0 L Vancomycin Trough Rheumatoid Factor Complement C4 Miscellaneous Test Crossmatch 11/11/16 11/11/16 11/12/16 06:59 09:50 04:00 WBC RBC Hgb Hct MCV MCH MCHC RDW Plt Count Lymph % (Auto) [place] % (Auto) Lymph # [place] # Baso # Seg Neutrophils % Seg Neuts % (Manual) Lymphocytes % (Manual) Monocytes % (Manual) Eosinophils % (Manual) Basophils % (Manual) Nucleated RBC % Seg Neutrophils # Seg Neutrophils # Man Lymphocytes # (Manual) Monocytes # (Manual) Eosinophils # (Manual) Basophils # (Manual) PT INR 1.18 H Fibrinogen dRVVT Confirm Interp Factor V Activity POC ABG pH POC ABG pCO2 POC ABG pO2 ABG pO2 ABG HCO3 ABG Base Excess ABG Hemoglobin Oxyhemoglobin Sodium 136 L 133 L Potassium Chloride 96.1 L 94.8 L Carbon Dioxide 21 L BUN 37 H 42 H Creatinine 1.8 H 2.0 H Glucose POC Glucose Lactic Acid Calcium Phosphorus Magnesium Direct Bilirubin AST ALT Alkaline Phosphatase Lactate Dehydrogenase Troponin T C-Reactive Protein Total Protein Albumin Prealbumin Triglycerides Cholesterol LDL Cholesterol Direct HDL Cholesterol Urine pH Urine WBC (Auto) Urine Creatinine Urine Total Protein Fluid Total Protein Vancomycin Trough Rheumatoid Factor Complement C4 Miscellaneous Test Crossmatch 11/12/16 11/12/16 11/13/16 04:00 23:55 05:53 WBC RBC Hgb 8.9 L Hct 27.2 L MCV MCH MCHC RDW Plt Count Lymph % (Auto) [place] % (Auto) Lymph # [place] # Baso # Seg Neutrophils % Seg Neuts % (Manual) Lymphocytes % (Manual) Monocytes % (Manual) Eosinophils % (Manual) Basophils % (Manual) Nucleated RBC % Seg Neutrophils # Seg Neutrophils # Man Lymphocytes # (Manual) Monocytes # (Manual) Eosinophils # (Manual) Basophils # (Manual) PT INR Fibrinogen dRVVT Confirm Interp Factor V Activity POC ABG pH POC ABG pCO2 POC ABG pO2 ABG pO2 ABG HCO3 ABG Base Excess ABG Hemoglobin Oxyhemoglobin Sodium Potassium Chloride Carbon Dioxide BUN Creatinine Glucose POC Glucose 132 H 120 H Lactic Acid Calcium Phosphorus Magnesium Direct Bilirubin AST ALT Alkaline Phosphatase Lactate Dehydrogenase Troponin T C-Reactive Protein Total Protein Albumin Prealbumin Triglycerides Cholesterol LDL Cholesterol Direct HDL Cholesterol Urine pH Urine WBC (Auto) Urine Creatinine Urine Total Protein Fluid Total Protein Vancomycin Trough Rheumatoid Factor Complement C4 Miscellaneous Test Crossmatch 11/13/16 11/13/16 11/13/16 11:43 17:09 23:41 WBC RBC Hgb Hct MCV MCH MCHC RDW Plt Count Lymph % (Auto) [place] % (Auto) Lymph # [place] # Baso # Seg Neutrophils % Seg Neuts % (Manual) Lymphocytes % (Manual) Monocytes % (Manual) Eosinophils % (Manual) Basophils % (Manual) Nucleated RBC % Seg Neutrophils # Seg Neutrophils # Man Lymphocytes # (Manual) Monocytes # (Manual) Eosinophils # (Manual) Basophils # (Manual) PT INR Fibrinogen dRVVT Confirm Interp Factor V Activity POC ABG pH POC ABG pCO2 POC ABG pO2 ABG pO2 ABG HCO3 ABG Base Excess ABG Hemoglobin Oxyhemoglobin Sodium Potassium Chloride Carbon Dioxide BUN Creatinine Glucose POC Glucose 114 H 113 H 108 H Lactic Acid Calcium Phosphorus Magnesium Direct Bilirubin AST ALT Alkaline Phosphatase Lactate Dehydrogenase Troponin T C-Reactive Protein Total Protein Albumin Prealbumin Triglycerides Cholesterol LDL Cholesterol Direct HDL Cholesterol Urine pH Urine WBC (Auto) Urine Creatinine Urine Total Protein Fluid Total Protein Vancomycin Trough Rheumatoid Factor Complement C4 Miscellaneous Test Crossmatch 11/13/16 11/15/16 11/15/16 Unknown 00:37 03:30 WBC 11.2 H RBC 2.72 L Hgb 7.6 L Hct 23.4 L MCV MCH MCHC RDW 16.5 H Plt Count Lymph % (Auto) [place] % (Auto) Lymph # [place] # Baso # Seg Neutrophils % Seg Neuts % (Manual) Lymphocytes % (Manual) Monocytes % (Manual) Eosinophils % (Manual) Basophils % (Manual) Nucleated RBC % Seg Neutrophils # Seg Neutrophils # Man Lymphocytes # (Manual) Monocytes # (Manual) Eosinophils # (Manual) Basophils # (Manual) PT INR Fibrinogen dRVVT Confirm Interp Factor V Activity POC ABG pH POC ABG pCO2 POC ABG pO2 ABG pO2 ABG HCO3 ABG Base Excess ABG Hemoglobin Oxyhemoglobin Sodium 135 L Potassium Chloride 95.2 L Carbon Dioxide BUN 52 H Creatinine 2.2 H Glucose POC Glucose 108 H Lactic Acid Calcium Phosphorus Magnesium Direct Bilirubin AST ALT Alkaline Phosphatase Lactate Dehydrogenase Troponin T C-Reactive Protein Total Protein Albumin Prealbumin Triglycerides Cholesterol LDL Cholesterol Direct HDL Cholesterol Urine pH Urine WBC (Auto) Urine Creatinine Urine Total Protein Fluid Total Protein Vancomycin Trough Rheumatoid Factor Complement C4 Miscellaneous Test Crossmatch 11/15/16 11/15/16 11/15/16 03:30 05:04 11:50 WBC RBC Hgb Hct MCV MCH MCHC RDW Plt Count Lymph % (Auto) [place] % (Auto) Lymph # [place] # Baso # Seg Neutrophils % Seg Neuts % (Manual) Lymphocytes % (Manual) Monocytes % (Manual) Eosinophils % (Manual) Basophils % (Manual) Nucleated RBC % Seg Neutrophils # Seg Neutrophils # Man Lymphocytes # (Manual) Monocytes # (Manual) Eosinophils # (Manual) Basophils # (Manual) PT INR Fibrinogen dRVVT Confirm Interp Factor V Activity POC ABG pH POC ABG pCO2 POC ABG pO2 ABG pO2 ABG HCO3 ABG Base Excess ABG Hemoglobin Oxyhemoglobin Sodium Potassium 3.4 L Chloride Carbon Dioxide BUN 25 H Creatinine 1.5 H Glucose 103 H POC Glucose 121 H 144 H Lactic Acid Calcium Phosphorus Magnesium Direct Bilirubin AST ALT Alkaline Phosphatase Lactate Dehydrogenase Troponin T C-Reactive Protein Total Protein Albumin Prealbumin Triglycerides Cholesterol LDL Cholesterol Direct HDL Cholesterol Urine pH Urine WBC (Auto) Urine Creatinine Urine Total Protein Fluid Total Protein Vancomycin Trough Rheumatoid Factor Complement C4 Miscellaneous Test Crossmatch 11/15/16 11/15/16 11/16/16 21:28 23:20 11:44 WBC RBC Hgb Hct MCV MCH MCHC RDW Plt Count Lymph % (Auto) [place] % (Auto) Lymph # [place] # Baso # Seg Neutrophils % Seg Neuts % (Manual) Lymphocytes % (Manual) Monocytes % (Manual) Eosinophils % (Manual) Basophils % (Manual) Nucleated RBC % Seg Neutrophils # Seg Neutrophils # Man Lymphocytes # (Manual) Monocytes # (Manual) Eosinophils # (Manual) Basophils # (Manual) PT INR Fibrinogen dRVVT Confirm Interp Factor V Activity POC ABG pH 7.462 H POC ABG pCO2 POC ABG pO2 71 L ABG pO2 ABG HCO3 ABG Base Excess ABG Hemoglobin Oxyhemoglobin Sodium Potassium Chloride Carbon Dioxide BUN Creatinine Glucose POC Glucose 116 H 133 H Lactic Acid Calcium Phosphorus Magnesium Direct Bilirubin AST ALT Alkaline Phosphatase Lactate Dehydrogenase Troponin T C-Reactive Protein Total Protein Albumin Prealbumin Triglycerides Cholesterol LDL Cholesterol Direct HDL Cholesterol Urine pH Urine WBC (Auto) Urine Creatinine Urine Total Protein Fluid Total Protein Vancomycin Trough Rheumatoid Factor Complement C4 Miscellaneous Test Crossmatch 11/16/16 11/16/16 11/16/16 12:20 17:05 23:35 WBC 11.7 H RBC 2.73 L Hgb 7.6 L Hct 23.7 L MCV MCH MCHC RDW 16.6 H Plt Count Lymph % (Auto) [place] % (Auto) Lymph # [place] # Baso # Seg Neutrophils % Seg Neuts % (Manual) Lymphocytes % (Manual) Monocytes % (Manual) Eosinophils % (Manual) Basophils % (Manual) Nucleated RBC % Seg Neutrophils # Seg Neutrophils # Man Lymphocytes # (Manual) Monocytes # (Manual) Eosinophils # (Manual) Basophils # (Manual) PT INR Fibrinogen dRVVT Confirm Interp Factor V Activity POC ABG pH POC ABG pCO2 POC ABG pO2 ABG pO2 ABG HCO3 ABG Base Excess ABG Hemoglobin Oxyhemoglobin Sodium Potassium Chloride Carbon Dioxide BUN Creatinine Glucose POC Glucose 154 H 125 H Lactic Acid Calcium Phosphorus Magnesium Direct Bilirubin AST ALT Alkaline Phosphatase Lactate Dehydrogenase Troponin T C-Reactive Protein Total Protein Albumin Prealbumin Triglycerides Cholesterol LDL Cholesterol Direct HDL Cholesterol Urine pH Urine WBC (Auto) Urine Creatinine Urine Total Protein Fluid Total Protein Vancomycin Trough Rheumatoid Factor Complement C4 Miscellaneous Test Crossmatch 11/17/16 11/17/16 11/17/16 03:20 03:20 03:20 WBC RBC 2.55 L Hgb 7.3 L Hct 21.9 L MCV MCH MCHC RDW 16.6 H Plt Count Lymph % (Auto) [place] % (Auto) 11.5 H Lymph # [place] # 1.1 H Baso # Seg Neutrophils % Seg Neuts % (Manual) Lymphocytes % (Manual) Monocytes % (Manual) Eosinophils % (Manual) Basophils % (Manual) Nucleated RBC % Seg Neutrophils # Seg Neutrophils # Man Lymphocytes # (Manual) Monocytes # (Manual) Eosinophils # (Manual) Basophils # (Manual) PT 16.8 H INR 1.37 H Fibrinogen dRVVT Confirm Interp Factor V Activity POC ABG pH POC ABG pCO2 POC ABG pO2 ABG pO2 ABG HCO3 ABG Base Excess ABG Hemoglobin Oxyhemoglobin Sodium Potassium 3.5 L Chloride Carbon Dioxide BUN 21 H Creatinine Glucose POC Glucose Lactic Acid Calcium 7.9 L Phosphorus Magnesium Direct Bilirubin AST ALT Alkaline Phosphatase Lactate Dehydrogenase Troponin T C-Reactive Protein Total Protein Albumin Prealbumin Triglycerides Cholesterol LDL Cholesterol Direct HDL Cholesterol Urine pH Urine WBC (Auto) Urine Creatinine Urine Total Protein Fluid Total Protein Vancomycin Trough Rheumatoid Factor Complement C4 Miscellaneous Test Crossmatch 11/17/16 11/17/16 11/17/16 06:34 11:21 21:22 WBC RBC Hgb Hct MCV MCH MCHC RDW Plt Count Lymph % (Auto) [place] % (Auto) Lymph # [place] # Baso # Seg Neutrophils % Seg Neuts % (Manual) Lymphocytes % (Manual) Monocytes % (Manual) Eosinophils % (Manual) Basophils % (Manual) Nucleated RBC % Seg Neutrophils # Seg Neutrophils # Man Lymphocytes # (Manual) Monocytes # (Manual) Eosinophils # (Manual) Basophils # (Manual) PT INR Fibrinogen dRVVT Confirm Interp Factor V Activity POC ABG pH 7.467 H POC ABG pCO2 POC ABG pO2 73 L ABG pO2 ABG HCO3 ABG Base Excess ABG Hemoglobin Oxyhemoglobin Sodium Potassium Chloride Carbon Dioxide BUN Creatinine Glucose POC Glucose 121 H 119 H Lactic Acid Calcium Phosphorus Magnesium Direct Bilirubin AST ALT Alkaline Phosphatase Lactate Dehydrogenase Troponin T C-Reactive Protein Total Protein Albumin Prealbumin Triglycerides Cholesterol LDL Cholesterol Direct HDL Cholesterol Urine pH Urine WBC (Auto) Urine Creatinine Urine Total Protein Fluid Total Protein Vancomycin Trough Rheumatoid Factor Complement C4 Miscellaneous Test Crossmatch 11/18/16 11/18/16 11/19/16 12:16 17:19 00:00 WBC RBC Hgb Hct MCV MCH MCHC RDW Plt Count Lymph % (Auto) [place] % (Auto) Lymph # [place] # Baso # Seg Neutrophils % Seg Neuts % (Manual) Lymphocytes % (Manual) Monocytes % (Manual) Eosinophils % (Manual) Basophils % (Manual) Nucleated RBC % Seg Neutrophils # Seg Neutrophils # Man Lymphocytes # (Manual) Monocytes # (Manual) Eosinophils # (Manual) Basophils # (Manual) PT INR Fibrinogen dRVVT Confirm Interp Factor V Activity POC ABG pH POC ABG pCO2 POC ABG pO2 ABG pO2 ABG HCO3 ABG Base Excess ABG Hemoglobin Oxyhemoglobin Sodium Potassium Chloride Carbon Dioxide BUN Creatinine Glucose POC Glucose 124 H 162 H 139 H Lactic Acid Calcium Phosphorus Magnesium Direct Bilirubin AST ALT Alkaline Phosphatase Lactate Dehydrogenase Troponin T C-Reactive Protein Total Protein Albumin Prealbumin Triglycerides Cholesterol LDL Cholesterol Direct HDL Cholesterol Urine pH Urine WBC (Auto) Urine Creatinine Urine Total Protein Fluid Total Protein Vancomycin Trough Rheumatoid Factor Complement C4 Miscellaneous Test Crossmatch 11/19/16 11/19/16 11/20/16 05:00 12:43 00:40 WBC RBC Hgb Hct MCV MCH MCHC RDW Plt Count Lymph % (Auto) [place] % (Auto) Lymph # [place] # Baso # Seg Neutrophils % Seg Neuts % (Manual) Lymphocytes % (Manual) Monocytes % (Manual) Eosinophils % (Manual) Basophils % (Manual) Nucleated RBC % Seg Neutrophils # Seg Neutrophils # Man Lymphocytes # (Manual) Monocytes # (Manual) Eosinophils # (Manual) Basophils # (Manual) PT INR Fibrinogen dRVVT Confirm Interp Factor V Activity POC ABG pH POC ABG pCO2 POC ABG pO2 ABG pO2 ABG HCO3 ABG Base Excess ABG Hemoglobin Oxyhemoglobin Sodium Potassium Chloride Carbon Dioxide BUN Creatinine Glucose POC Glucose 110 H 125 H 136 H Lactic Acid Calcium Phosphorus Magnesium Direct Bilirubin AST ALT Alkaline Phosphatase Lactate Dehydrogenase Troponin T C-Reactive Protein Total Protein Albumin Prealbumin Triglycerides Cholesterol LDL Cholesterol Direct HDL Cholesterol Urine pH Urine WBC (Auto) Urine Creatinine Urine Total Protein Fluid Total Protein Vancomycin Trough Rheumatoid Factor Complement C4 Miscellaneous Test Crossmatch 11/20/16 11/20/16 11/20/16 05:00 05:00 05:51 WBC 13.1 H RBC 2.74 L Hgb 7.7 L Hct 23.6 L MCV MCH MCHC RDW 16.9 H Plt Count Lymph % (Auto) [place] % (Auto) 10.8 H Lymph # [place] # 1.4 H Baso # Seg Neutrophils % Seg Neuts % (Manual) Lymphocytes % (Manual) Monocytes % (Manual) Eosinophils % (Manual) Basophils % (Manual) Nucleated RBC % Seg Neutrophils # 7.9 H Seg Neutrophils # Man Lymphocytes # (Manual) Monocytes # (Manual) Eosinophils # (Manual) Basophils # (Manual) PT INR Fibrinogen dRVVT Confirm Interp Factor V Activity POC ABG pH POC ABG pCO2 POC ABG pO2 ABG pO2 ABG HCO3 ABG Base Excess ABG Hemoglobin Oxyhemoglobin Sodium Potassium Chloride Carbon Dioxide BUN 31 H Creatinine 1.8 H Glucose 129 H POC Glucose 133 H Lactic Acid Calcium Phosphorus Magnesium Direct Bilirubin AST ALT Alkaline Phosphatase Lactate Dehydrogenase Troponin T C-Reactive Protein Total Protein Albumin Prealbumin Triglycerides Cholesterol LDL Cholesterol Direct HDL Cholesterol Urine pH Urine WBC (Auto) Urine Creatinine Urine Total Protein Fluid Total Protein Vancomycin Trough Rheumatoid Factor Complement C4 Miscellaneous Test Crossmatch 11/20/16 11/20/16 11/21/16 12:40 18:10 01:20 WBC RBC Hgb Hct MCV MCH MCHC RDW Plt Count Lymph % (Auto) [place] % (Auto) Lymph # [place] # Baso # Seg Neutrophils % Seg Neuts % (Manual) Lymphocytes % (Manual) Monocytes % (Manual) Eosinophils % (Manual) Basophils % (Manual) Nucleated RBC % Seg Neutrophils # Seg Neutrophils # Man Lymphocytes # (Manual) Monocytes # (Manual) Eosinophils # (Manual) Basophils # (Manual) PT INR Fibrinogen dRVVT Confirm Interp Factor V Activity POC ABG pH POC ABG pCO2 POC ABG pO2 ABG pO2 ABG HCO3 ABG Base Excess ABG Hemoglobin Oxyhemoglobin Sodium Potassium Chloride Carbon Dioxide BUN Creatinine Glucose POC Glucose 134 H 138 H 136 H Lactic Acid Calcium Phosphorus Magnesium Direct Bilirubin AST ALT Alkaline Phosphatase Lactate Dehydrogenase Troponin T C-Reactive Protein Total Protein Albumin Prealbumin Triglycerides Cholesterol LDL Cholesterol Direct HDL Cholesterol Urine pH Urine WBC (Auto) Urine Creatinine Urine Total Protein Fluid Total Protein Vancomycin Trough Rheumatoid Factor Complement C4 Miscellaneous Test Crossmatch 11/21/16 11/21/16 11/21/16 07:04 07:45 07:45 WBC 22.0 H RBC 2.91 L Hgb 8.2 L Hct 25.4 L MCV MCH MCHC RDW 17.1 H Plt Count Lymph % (Auto) [place] % (Auto) Lymph # [place] # Baso # Seg Neutrophils % Seg Neuts % (Manual) Lymphocytes % (Manual) 8.0 L Monocytes % (Manual) Eosinophils % (Manual) Basophils % (Manual) Nucleated RBC % Seg Neutrophils # Seg Neutrophils # Man 14.7 H Lymphocytes # (Manual) Monocytes # (Manual) 1.1 H Eosinophils # (Manual) Basophils # (Manual) PT INR Fibrinogen dRVVT Confirm Interp Factor V Activity POC ABG pH POC ABG pCO2 POC ABG pO2 ABG pO2 ABG HCO3 ABG Base Excess ABG Hemoglobin Oxyhemoglobin Sodium Potassium Chloride Carbon Dioxide BUN 42 H Creatinine 2.0 H Glucose POC Glucose 108 H Lactic Acid Calcium Phosphorus Magnesium Direct Bilirubin AST ALT Alkaline Phosphatase Lactate Dehydrogenase Troponin T C-Reactive Protein Total Protein Albumin Prealbumin Triglycerides Cholesterol LDL Cholesterol Direct HDL Cholesterol Urine pH Urine WBC (Auto) Urine Creatinine Urine Total Protein Fluid Total Protein Vancomycin Trough Rheumatoid Factor Complement C4 Miscellaneous Test Crossmatch 11/21/16 11/21/16 11/21/16 08:38 10:09 11:20 WBC RBC Hgb Hct MCV MCH MCHC RDW Plt Count Lymph % (Auto) [place] % (Auto) Lymph # [place] # Baso # Seg Neutrophils % Seg Neuts % (Manual) Lymphocytes % (Manual) Monocytes % (Manual) Eosinophils % (Manual) Basophils % (Manual) Nucleated RBC % Seg Neutrophils # Seg Neutrophils # Man Lymphocytes # (Manual) Monocytes # (Manual) Eosinophils # (Manual) Basophils # (Manual) PT INR Fibrinogen dRVVT Confirm Interp Factor V Activity POC ABG pH 7.346 L POC ABG pCO2 34.4 L POC ABG pO2 314 H ABG pO2 ABG HCO3 ABG Base Excess ABG Hemoglobin Oxyhemoglobin Sodium Potassium Chloride Carbon Dioxide BUN Creatinine Glucose POC Glucose 195 H 153 H Lactic Acid Calcium Phosphorus Magnesium Direct Bilirubin AST ALT Alkaline Phosphatase Lactate Dehydrogenase Troponin T C-Reactive Protein Total Protein Albumin Prealbumin Triglycerides Cholesterol LDL Cholesterol Direct HDL Cholesterol Urine pH Urine WBC (Auto) Urine Creatinine Urine Total Protein Fluid Total Protein Vancomycin Trough Rheumatoid Factor Complement C4 Miscellaneous Test Crossmatch 11/21/16 11/22/16 11/22/16 23:37 04:48 05:00 WBC 29.7 H RBC 2.73 L Hgb 7.5 L Hct 24.2 L MCV MCH 27 L MCHC RDW 17.4 H Plt Count Lymph % (Auto) [place] % (Auto) Lymph # [place] # Baso # Seg Neutrophils % Seg Neuts % (Manual) Lymphocytes % (Manual) 7.0 L Monocytes % (Manual) Eosinophils % (Manual) Basophils % (Manual) Nucleated RBC % Seg Neutrophils # Seg Neutrophils # Man 15.4 H Lymphocytes # (Manual) Monocytes # (Manual) Eosinophils # (Manual) Basophils # (Manual) PT INR Fibrinogen dRVVT Confirm Interp Factor V Activity POC ABG pH POC ABG pCO2 24.6 L POC ABG pO2 189 H ABG pO2 ABG HCO3 ABG Base Excess ABG Hemoglobin Oxyhemoglobin Sodium Potassium Chloride Carbon Dioxide BUN Creatinine Glucose POC Glucose 65 L Lactic Acid Calcium Phosphorus Magnesium Direct Bilirubin AST ALT Alkaline Phosphatase Lactate Dehydrogenase Troponin T C-Reactive Protein Total Protein Albumin Prealbumin Triglycerides Cholesterol LDL Cholesterol Direct HDL Cholesterol Urine pH Urine WBC (Auto) Urine Creatinine Urine Total Protein Fluid Total Protein Vancomycin Trough Rheumatoid Factor Complement C4 Miscellaneous Test Crossmatch 11/22/16 11/23/16 11/23/16 05:00 03:44 04:06 WBC RBC 2.52 L Hgb 7.2 L Hct 21.5 L MCV MCH MCHC RDW 17.1 H Plt Count Lymph % (Auto) [place] % (Auto) 12.4 H Lymph # [place] # 1.4 H Baso # Seg Neutrophils % Seg Neuts % (Manual) Lymphocytes % (Manual) Monocytes % (Manual) Eosinophils % (Manual) Basophils % (Manual) Nucleated RBC % Seg Neutrophils # Seg Neutrophils # Man Lymphocytes # (Manual) Monocytes # (Manual) Eosinophils # (Manual) Basophils # (Manual) PT INR Fibrinogen dRVVT Confirm Interp Factor V Activity POC ABG pH 7.493 H POC ABG pCO2 29.5 L POC ABG pO2 49 L ABG pO2 ABG HCO3 ABG Base Excess ABG Hemoglobin Oxyhemoglobin Sodium 134 L Potassium Chloride 95.9 L Carbon Dioxide 14 L D BUN 51 H Creatinine 2.6 H Glucose POC Glucose Lactic Acid Calcium Phosphorus Magnesium Direct Bilirubin AST ALT Alkaline Phosphatase Lactate Dehydrogenase Troponin T C-Reactive Protein Total Protein Albumin Prealbumin Triglycerides Cholesterol LDL Cholesterol Direct HDL Cholesterol Urine pH Urine WBC (Auto) Urine Creatinine Urine Total Protein Fluid Total Protein Vancomycin Trough Rheumatoid Factor Complement C4 Miscellaneous Test Crossmatch 11/23/16 11/23/16 11/24/16 04:06 11:29 06:39 WBC RBC Hgb Hct MCV MCH MCHC RDW Plt Count Lymph % (Auto) [place] % (Auto) Lymph # [place] # Baso # Seg Neutrophils % Seg Neuts % (Manual) Lymphocytes % (Manual) Monocytes % (Manual) Eosinophils % (Manual) Basophils % (Manual) Nucleated RBC % Seg Neutrophils # Seg Neutrophils # Man Lymphocytes # (Manual) Monocytes # (Manual) Eosinophils # (Manual) Basophils # (Manual) PT INR Fibrinogen dRVVT Confirm Interp Factor V Activity POC ABG pH POC ABG pCO2 POC ABG pO2 ABG pO2 ABG HCO3 ABG Base Excess ABG Hemoglobin Oxyhemoglobin Sodium 136 L Potassium Chloride 95.2 L Carbon Dioxide BUN 60 H Creatinine 2.9 H Glucose POC Glucose 69 L 305 H Lactic Acid Calcium Phosphorus Magnesium 1.60 L Direct Bilirubin AST ALT Alkaline Phosphatase Lactate Dehydrogenase Troponin T C-Reactive Protein Total Protein Albumin Prealbumin Triglycerides Cholesterol LDL Cholesterol Direct HDL Cholesterol Urine pH Urine WBC (Auto) Urine Creatinine Urine Total Protein Fluid Total Protein Vancomycin Trough Rheumatoid Factor Complement C4 Miscellaneous Test Crossmatch 11/24/16 11/24/16 11/24/16 06:43 08:08 08:08 WBC 11.2 H RBC 2.47 L Hgb 6.8 L Hct 20.6 L MCV MCH MCHC RDW 17.0 H Plt Count Lymph % (Auto) [place] % (Auto) 10.3 H Lymph # [place] # 1.2 H Baso # Seg Neutrophils % Seg Neuts % (Manual) Lymphocytes % (Manual) Monocytes % (Manual) Eosinophils % (Manual) Basophils % (Manual) Nucleated RBC % Seg Neutrophils # Seg Neutrophils # Man Lymphocytes # (Manual) Monocytes # (Manual) Eosinophils # (Manual) Basophils # (Manual) PT INR Fibrinogen dRVVT Confirm Interp Factor V Activity POC ABG pH POC ABG pCO2 POC ABG pO2 ABG pO2 ABG HCO3 ABG Base Excess ABG Hemoglobin Oxyhemoglobin Sodium 135 L Potassium Chloride 96.3 L Carbon Dioxide BUN 61 H Creatinine 3.1 H Glucose POC Glucose 62 L Lactic Acid Calcium 8.2 L Phosphorus Magnesium Direct Bilirubin AST ALT Alkaline Phosphatase Lactate Dehydrogenase Troponin T C-Reactive Protein Total Protein Albumin Prealbumin Triglycerides Cholesterol LDL Cholesterol Direct HDL Cholesterol Urine pH Urine WBC (Auto) Urine Creatinine Urine Total Protein Fluid Total Protein Vancomycin Trough Rheumatoid Factor Complement C4 Miscellaneous Test Crossmatch 11/24/16 11/24/16 11/24/16 08:34 11:20 12:41 WBC RBC Hgb Hct MCV MCH MCHC RDW Plt Count Lymph % (Auto) [place] % (Auto) Lymph # [place] # Baso # Seg Neutrophils % Seg Neuts % (Manual) Lymphocytes % (Manual) Monocytes % (Manual) Eosinophils % (Manual) Basophils % (Manual) Nucleated RBC % Seg Neutrophils # Seg Neutrophils # Man Lymphocytes # (Manual) Monocytes # (Manual) Eosinophils # (Manual) Basophils # (Manual) PT INR Fibrinogen dRVVT Confirm Interp Factor V Activity POC ABG pH POC ABG pCO2 POC ABG pO2 ABG pO2 ABG HCO3 ABG Base Excess ABG Hemoglobin Oxyhemoglobin Sodium Potassium Chloride Carbon Dioxide BUN Creatinine Glucose POC Glucose 108 H Lactic Acid Calcium Phosphorus Magnesium 1.60 L Direct Bilirubin AST ALT Alkaline Phosphatase Lactate Dehydrogenase Troponin T C-Reactive Protein Total Protein Albumin Prealbumin Triglycerides Cholesterol LDL Cholesterol Direct HDL Cholesterol Urine pH Urine WBC (Auto) Urine Creatinine Urine Total Protein Fluid Total Protein Vancomycin Trough Rheumatoid Factor Complement C4 Miscellaneous Test Crossmatch See Detail 11/25/16 11/25/16 11/25/16 00:03 04:42 04:42 WBC RBC 3.03 L Hgb 8.6 L Hct 25.3 L MCV MCH MCHC RDW 16.2 H Plt Count Lymph % (Auto) [place] % (Auto) 8.1 H Lymph # [place] # Baso # Seg Neutrophils % 71.3 H Seg Neuts % (Manual) Lymphocytes % (Manual) Monocytes % (Manual) Eosinophils % (Manual) Basophils % (Manual) Nucleated RBC % Seg Neutrophils # Seg Neutrophils # Man Lymphocytes # (Manual) Monocytes # (Manual) Eosinophils # (Manual) Basophils # (Manual) PT INR Fibrinogen dRVVT Confirm Interp Factor V Activity POC ABG pH POC ABG pCO2 POC ABG pO2 ABG pO2 ABG HCO3 ABG Base Excess ABG Hemoglobin Oxyhemoglobin Sodium Potassium Chloride Carbon Dioxide BUN 61 H Creatinine 3.0 H Glucose 102 H POC Glucose 113 H Lactic Acid Calcium 8.2 L Phosphorus Magnesium Direct Bilirubin AST ALT Alkaline Phosphatase 142 H Lactate Dehydrogenase Troponin T C-Reactive Protein Total Protein 5.7 L Albumin 1.5 L Prealbumin Triglycerides Cholesterol LDL Cholesterol Direct HDL Cholesterol Urine pH Urine WBC (Auto) Urine Creatinine Urine Total Protein Fluid Total Protein Vancomycin Trough Rheumatoid Factor Complement C4 Miscellaneous Test Crossmatch 11/25/16 11/25/16 11/25/16 05:12 11:31 14:12 WBC RBC Hgb Hct MCV MCH MCHC RDW Plt Count Lymph % (Auto) [place] % (Auto) Lymph # [place] # Baso # Seg Neutrophils % Seg Neuts % (Manual) Lymphocytes % (Manual) Monocytes % (Manual) Eosinophils % (Manual) Basophils % (Manual) Nucleated RBC % Seg Neutrophils # Seg Neutrophils # Man Lymphocytes # (Manual) Monocytes # (Manual) Eosinophils # (Manual) Basophils # (Manual) PT INR Fibrinogen dRVVT Confirm Interp Factor V Activity POC ABG pH 7.487 H POC ABG pCO2 POC ABG pO2 153 H ABG pO2 ABG HCO3 ABG Base Excess ABG Hemoglobin Oxyhemoglobin Sodium Potassium Chloride Carbon Dioxide BUN Creatinine Glucose POC Glucose 131 H 140 H Lactic Acid Calcium Phosphorus Magnesium Direct Bilirubin AST ALT Alkaline Phosphatase Lactate Dehydrogenase Troponin T C-Reactive Protein Total Protein Albumin Prealbumin Triglycerides Cholesterol LDL Cholesterol Direct HDL Cholesterol Urine pH Urine WBC (Auto) Urine Creatinine Urine Total Protein Fluid Total Protein Vancomycin Trough Rheumatoid Factor Complement C4 Miscellaneous Test Crossmatch 11/25/16 11/26/16 11/26/16 17:23 00:09 05:13 WBC RBC 2.94 L Hgb 8.4 L Hct 24.6 L MCV MCH MCHC RDW 16.4 H Plt Count Lymph % (Auto) [place] % (Auto) 12.3 H Lymph # [place] # 1.1 H Baso # Seg Neutrophils % Seg Neuts % (Manual) Lymphocytes % (Manual) Monocytes % (Manual) Eosinophils % (Manual) Basophils % (Manual) Nucleated RBC % Seg Neutrophils # Seg Neutrophils # Man Lymphocytes # (Manual) Monocytes # (Manual) Eosinophils # (Manual) Basophils # (Manual) PT INR Fibrinogen dRVVT Confirm Interp Factor V Activity POC ABG pH POC ABG pCO2 POC ABG pO2 ABG pO2 ABG HCO3 ABG Base Excess ABG Hemoglobin Oxyhemoglobin Sodium Potassium Chloride Carbon Dioxide BUN Creatinine Glucose POC Glucose 146 H 112 H Lactic Acid Calcium Phosphorus Magnesium Direct Bilirubin AST ALT Alkaline Phosphatase Lactate Dehydrogenase Troponin T C-Reactive Protein Total Protein Albumin Prealbumin Triglycerides Cholesterol LDL Cholesterol Direct HDL Cholesterol Urine pH Urine WBC (Auto) Urine Creatinine Urine Total Protein Fluid Total Protein Vancomycin Trough Rheumatoid Factor Complement C4 Miscellaneous Test Crossmatch 11/26/16 11/26/16 11/26/16 05:13 05:28 11:53 WBC RBC Hgb Hct MCV MCH MCHC RDW Plt Count Lymph % (Auto) [place] % (Auto) Lymph # [place] # Baso # Seg Neutrophils % Seg Neuts % (Manual) Lymphocytes % (Manual) Monocytes % (Manual) Eosinophils % (Manual) Basophils % (Manual) Nucleated RBC % Seg Neutrophils # Seg Neutrophils # Man Lymphocytes # (Manual) Monocytes # (Manual) Eosinophils # (Manual) Basophils # (Manual) PT INR Fibrinogen dRVVT Confirm Interp Factor V Activity POC ABG pH POC ABG pCO2 POC ABG pO2 ABG pO2 ABG HCO3 ABG Base Excess ABG Hemoglobin Oxyhemoglobin Sodium Potassium Chloride 97.8 L Carbon Dioxide BUN 37 H Creatinine 2.0 H Glucose 109 H POC Glucose 117 H 111 H Lactic Acid Calcium 7.9 L Phosphorus 1.80 L D Magnesium Direct Bilirubin AST ALT Alkaline Phosphatase Lactate Dehydrogenase Troponin T C-Reactive Protein Total Protein Albumin Prealbumin Triglycerides Cholesterol LDL Cholesterol Direct HDL Cholesterol Urine pH Urine WBC (Auto) Urine Creatinine Urine Total Protein Fluid Total Protein Vancomycin Trough Rheumatoid Factor Complement C4 Miscellaneous Test Crossmatch 11/26/16 11/27/16 11/27/16 17:14 04:50 06:02 WBC RBC Hgb Hct MCV MCH MCHC RDW Plt Count Lymph % (Auto) [place] % (Auto) Lymph # [place] # Baso # Seg Neutrophils % Seg Neuts % (Manual) Lymphocytes % (Manual) Monocytes % (Manual) Eosinophils % (Manual) Basophils % (Manual) Nucleated RBC % Seg Neutrophils # Seg Neutrophils # Man Lymphocytes # (Manual) Monocytes # (Manual) Eosinophils # (Manual) Basophils # (Manual) PT INR Fibrinogen dRVVT Confirm Interp Factor V Activity POC ABG pH POC ABG pCO2 POC ABG pO2 ABG pO2 75.2 L ABG HCO3 26.4 H ABG Base Excess ABG Hemoglobin 7.6 L Oxyhemoglobin 94.8 L Sodium Potassium Chloride Carbon Dioxide BUN 49 H Creatinine 2.3 H Glucose POC Glucose 115 H Lactic Acid Calcium Phosphorus 1.50 L Magnesium Direct Bilirubin AST ALT Alkaline Phosphatase Lactate Dehydrogenase Troponin T C-Reactive Protein Total Protein Albumin Prealbumin Triglycerides Cholesterol LDL Cholesterol Direct HDL Cholesterol Urine pH Urine WBC (Auto) Urine Creatinine Urine Total Protein Fluid Total Protein Vancomycin Trough Rheumatoid Factor Complement C4 Miscellaneous Test Crossmatch 11/27/16 11/27/16 11/27/16 06:02 11:25 17:25 WBC 11.6 H RBC 2.75 L Hgb 7.6 L Hct 23.4 L MCV MCH MCHC RDW 16.5 H Plt Count Lymph % (Auto) [place] % (Auto) Lymph # [place] # Baso # Seg Neutrophils % Seg Neuts % (Manual) Lymphocytes % (Manual) Monocytes % (Manual) Eosinophils % (Manual) Basophils % (Manual) Nucleated RBC % Seg Neutrophils # Seg Neutrophils # Man Lymphocytes # (Manual) Monocytes # (Manual) Eosinophils # (Manual) Basophils # (Manual) PT INR Fibrinogen dRVVT Confirm Interp Factor V Activity POC ABG pH POC ABG pCO2 POC ABG pO2 ABG pO2 ABG HCO3 ABG Base Excess ABG Hemoglobin Oxyhemoglobin Sodium Potassium Chloride Carbon Dioxide BUN Creatinine Glucose POC Glucose 114 H 126 H Lactic Acid Calcium Phosphorus Magnesium Direct Bilirubin AST ALT Alkaline Phosphatase Lactate Dehydrogenase Troponin T C-Reactive Protein Total Protein Albumin Prealbumin Triglycerides Cholesterol LDL Cholesterol Direct HDL Cholesterol Urine pH Urine WBC (Auto) Urine Creatinine Urine Total Protein Fluid Total Protein Vancomycin Trough Rheumatoid Factor Complement C4 Miscellaneous Test Crossmatch 11/28/16 11/28/16 11/28/16 04:45 05:33 05:44 WBC RBC Hgb Hct MCV MCH MCHC RDW Plt Count Lymph % (Auto) [place] % (Auto) Lymph # [place] # Baso # Seg Neutrophils % Seg Neuts % (Manual) Lymphocytes % (Manual) Monocytes % (Manual) Eosinophils % (Manual) Basophils % (Manual) Nucleated RBC % Seg Neutrophils # Seg Neutrophils # Man Lymphocytes # (Manual) Monocytes # (Manual) Eosinophils # (Manual) Basophils # (Manual) PT INR Fibrinogen dRVVT Confirm Interp Factor V Activity POC ABG pH POC ABG pCO2 POC ABG pO2 ABG pO2 99.3 H ABG HCO3 ABG Base Excess ABG Hemoglobin 8.3 L Oxyhemoglobin Sodium Potassium Chloride Carbon Dioxide BUN 63 H Creatinine 2.4 H Glucose 102 H POC Glucose 108 H Lactic Acid Calcium Phosphorus 1.80 L Magnesium Direct Bilirubin AST ALT Alkaline Phosphatase Lactate Dehydrogenase Troponin T C-Reactive Protein Total Protein Albumin Prealbumin Triglycerides Cholesterol LDL Cholesterol Direct HDL Cholesterol Urine pH Urine WBC (Auto) Urine Creatinine Urine Total Protein Fluid Total Protein Vancomycin Trough Rheumatoid Factor Complement C4 Miscellaneous Test Crossmatch 11/28/16 11/28/16 11/28/16 12:31 16:09 23:46 WBC RBC Hgb Hct MCV MCH MCHC RDW Plt Count Lymph % (Auto) [place] % (Auto) Lymph # [place] # Baso # Seg Neutrophils % Seg Neuts % (Manual) Lymphocytes % (Manual) Monocytes % (Manual) Eosinophils % (Manual) Basophils % (Manual) Nucleated RBC % Seg Neutrophils # Seg Neutrophils # Man Lymphocytes # (Manual) Monocytes # (Manual) Eosinophils # (Manual) Basophils # (Manual) PT INR Fibrinogen dRVVT Confirm Interp Factor V Activity POC ABG pH POC ABG pCO2 POC ABG pO2 ABG pO2 ABG HCO3 ABG Base Excess ABG Hemoglobin Oxyhemoglobin Sodium Potassium Chloride Carbon Dioxide BUN Creatinine Glucose POC Glucose 126 H 111 H 119 H Lactic Acid Calcium Phosphorus Magnesium Direct Bilirubin AST ALT Alkaline Phosphatase Lactate Dehydrogenase Troponin T C-Reactive Protein Total Protein Albumin Prealbumin Triglycerides Cholesterol LDL Cholesterol Direct HDL Cholesterol Urine pH Urine WBC (Auto) Urine Creatinine Urine Total Protein Fluid Total Protein Vancomycin Trough Rheumatoid Factor Complement C4 Miscellaneous Test Crossmatch 11/29/16 11/29/16 11/29/16 03:33 04:52 05:10 WBC RBC Hgb Hct MCV MCH MCHC RDW Plt Count Lymph % (Auto) [place] % (Auto) Lymph # [place] # Baso # Seg Neutrophils % Seg Neuts % (Manual) Lymphocytes % (Manual) Monocytes % (Manual) Eosinophils % (Manual) Basophils % (Manual) Nucleated RBC % Seg Neutrophils # Seg Neutrophils # Man Lymphocytes # (Manual) Monocytes # (Manual) Eosinophils # (Manual) Basophils # (Manual) PT INR Fibrinogen dRVVT Confirm Interp Factor V Activity POC ABG pH POC ABG pCO2 POC ABG pO2 ABG pO2 ABG HCO3 ABG Base Excess ABG Hemoglobin 7.0 L Oxyhemoglobin 94.9 L Sodium Potassium Chloride Carbon Dioxide BUN 73 H Creatinine 2.7 H Glucose POC Glucose 108 H Lactic Acid Calcium Phosphorus Magnesium Direct Bilirubin AST ALT Alkaline Phosphatase Lactate Dehydrogenase Troponin T C-Reactive Protein Total Protein Albumin Prealbumin Triglycerides Cholesterol LDL Cholesterol Direct HDL Cholesterol Urine pH Urine WBC (Auto) Urine Creatinine Urine Total Protein Fluid Total Protein Vancomycin Trough Rheumatoid Factor Complement C4 Miscellaneous Test Crossmatch 11/29/16 11/29/16 11/29/16 12:16 18:05 23:46 WBC RBC Hgb Hct MCV MCH MCHC RDW Plt Count Lymph % (Auto) [place] % (Auto) Lymph # [place] # Baso # Seg Neutrophils % Seg Neuts % (Manual) Lymphocytes % (Manual) Monocytes % (Manual) Eosinophils % (Manual) Basophils % (Manual) Nucleated RBC % Seg Neutrophils # Seg Neutrophils # Man Lymphocytes # (Manual) Monocytes # (Manual) Eosinophils # (Manual) Basophils # (Manual) PT INR Fibrinogen dRVVT Confirm Interp Factor V Activity POC ABG pH POC ABG pCO2 POC ABG pO2 ABG pO2 ABG HCO3 ABG Base Excess ABG Hemoglobin Oxyhemoglobin Sodium Potassium Chloride Carbon Dioxide BUN Creatinine Glucose POC Glucose 133 H 146 H 141 H Lactic Acid Calcium Phosphorus Magnesium Direct Bilirubin AST ALT Alkaline Phosphatase Lactate Dehydrogenase Troponin T C-Reactive Protein Total Protein Albumin Prealbumin Triglycerides Cholesterol LDL Cholesterol Direct HDL Cholesterol Urine pH Urine WBC (Auto) Urine Creatinine Urine Total Protein Fluid Total Protein Vancomycin Trough Rheumatoid Factor Complement C4 Miscellaneous Test Crossmatch 11/30/16 11/30/16 11/30/16 04:17 04:17 04:32 WBC 12.0 H RBC 2.80 L Hgb 7.8 L Hct 23.6 L MCV MCH MCHC RDW 16.6 H Plt Count Lymph % (Auto) [place] % (Auto) 11.3 H Lymph # [place] # 1.4 H Baso # Seg Neutrophils % Seg Neuts % (Manual) Lymphocytes % (Manual) Monocytes % (Manual) Eosinophils % (Manual) Basophils % (Manual) Nucleated RBC % Seg Neutrophils # 8.2 H Seg Neutrophils # Man Lymphocytes # (Manual) Monocytes # (Manual) Eosinophils # (Manual) Basophils # (Manual) PT INR Fibrinogen dRVVT Confirm Interp Factor V Activity POC ABG pH POC ABG pCO2 POC ABG pO2 ABG pO2 ABG HCO3 ABG Base Excess ABG Hemoglobin Oxyhemoglobin Sodium 169 H* D Potassium 5.1 H Chloride 121.5 H Carbon Dioxide BUN 34 H Creatinine 1.3 H D Glucose 133 H POC Glucose 131 H Lactic Acid Calcium 10.3 H Phosphorus Magnesium Direct Bilirubin AST ALT Alkaline Phosphatase Lactate Dehydrogenase Troponin T C-Reactive Protein Total Protein Albumin Prealbumin Triglycerides Cholesterol LDL Cholesterol Direct HDL Cholesterol Urine pH Urine WBC (Auto) Urine Creatinine Urine Total Protein Fluid Total Protein Vancomycin Trough Rheumatoid Factor Complement C4 Miscellaneous Test Crossmatch 11/30/16 11/30/16 11/30/16 05:45 11:10 17:26 WBC RBC Hgb Hct MCV MCH MCHC RDW Plt Count Lymph % (Auto) [place] % (Auto) Lymph # [place] # Baso # Seg Neutrophils % Seg Neuts % (Manual) Lymphocytes % (Manual) Monocytes % (Manual) Eosinophils % (Manual) Basophils % (Manual) Nucleated RBC % Seg Neutrophils # Seg Neutrophils # Man Lymphocytes # (Manual) Monocytes # (Manual) Eosinophils # (Manual) Basophils # (Manual) PT INR Fibrinogen dRVVT Confirm Interp Factor V Activity POC ABG pH POC ABG pCO2 POC ABG pO2 ABG pO2 ABG HCO3 ABG Base Excess ABG Hemoglobin Oxyhemoglobin Sodium Potassium Chloride Carbon Dioxide BUN 45 H Creatinine 1.6 H Glucose 131 H POC Glucose 146 H 134 H Lactic Acid Calcium Phosphorus Magnesium Direct Bilirubin AST ALT Alkaline Phosphatase Lactate Dehydrogenase Troponin T C-Reactive Protein Total Protein Albumin Prealbumin Triglycerides Cholesterol LDL Cholesterol Direct HDL Cholesterol Urine pH Urine WBC (Auto) Urine Creatinine Urine Total Protein Fluid Total Protein Vancomycin Trough Rheumatoid Factor Complement C4 Miscellaneous Test Crossmatch 11/30/16 12/01/16 12/01/16 23:35 00:06 03:35 WBC RBC Hgb Hct MCV MCH MCHC RDW Plt Count Lymph % (Auto) [place] % (Auto) Lymph # [place] # Baso # Seg Neutrophils % Seg Neuts % (Manual) Lymphocytes % (Manual) Monocytes % (Manual) Eosinophils % (Manual) Basophils % (Manual) Nucleated RBC % Seg Neutrophils # Seg Neutrophils # Man Lymphocytes # (Manual) Monocytes # (Manual) Eosinophils # (Manual) Basophils # (Manual) PT INR Fibrinogen dRVVT Confirm Interp Factor V Activity POC ABG pH POC ABG pCO2 POC ABG pO2 ABG pO2 ABG HCO3 ABG Base Excess ABG Hemoglobin 6.9 L Oxyhemoglobin Sodium Potassium Chloride Carbon Dioxide BUN 58 H Creatinine 1.8 H Glucose 146 H POC Glucose 151 H Lactic Acid Calcium Phosphorus Magnesium Direct Bilirubin AST ALT Alkaline Phosphatase Lactate Dehydrogenase Troponin T C-Reactive Protein Total Protein Albumin Prealbumin Triglycerides Cholesterol LDL Cholesterol Direct HDL Cholesterol Urine pH Urine WBC (Auto) Urine Creatinine Urine Total Protein Fluid Total Protein Vancomycin Trough Rheumatoid Factor Complement C4 Miscellaneous Test Crossmatch 12/01/16 12/01/16 12/01/16 03:35 05:47 11:52 WBC 12.3 H RBC 2.82 L Hgb 7.8 L Hct 23.7 L MCV MCH MCHC RDW 16.7 H Plt Count Lymph % (Auto) [place] % (Auto) 9.8 H Lymph # [place] # 1.2 H Baso # Seg Neutrophils % Seg Neuts % (Manual) Lymphocytes % (Manual) Monocytes % (Manual) Eosinophils % (Manual) Basophils % (Manual) Nucleated RBC % Seg Neutrophils # 8.4 H Seg Neutrophils # Man Lymphocytes # (Manual) Monocytes # (Manual) Eosinophils # (Manual) Basophils # (Manual) PT INR Fibrinogen dRVVT Confirm Interp Factor V Activity POC ABG pH POC ABG pCO2 POC ABG pO2 ABG pO2 ABG HCO3 ABG Base Excess ABG Hemoglobin Oxyhemoglobin Sodium Potassium Chloride Carbon Dioxide BUN Creatinine Glucose POC Glucose 152 H 152 H Lactic Acid Calcium Phosphorus Magnesium Direct Bilirubin AST ALT Alkaline Phosphatase Lactate Dehydrogenase Troponin T C-Reactive Protein Total Protein Albumin Prealbumin Triglycerides Cholesterol LDL Cholesterol Direct HDL Cholesterol Urine pH Urine WBC (Auto) Urine Creatinine Urine Total Protein Fluid Total Protein Vancomycin Trough Rheumatoid Factor Complement C4 Miscellaneous Test Crossmatch 12/01/16 12/01/16 12/02/16 17:40 23:41 05:00 WBC RBC Hgb Hct MCV MCH MCHC RDW Plt Count Lymph % (Auto) [place] % (Auto) Lymph # [place] # Baso # Seg Neutrophils % Seg Neuts % (Manual) Lymphocytes % (Manual) Monocytes % (Manual) Eosinophils % (Manual) Basophils % (Manual) Nucleated RBC % Seg Neutrophils # Seg Neutrophils # Man Lymphocytes # (Manual) Monocytes # (Manual) Eosinophils # (Manual) Basophils # (Manual) PT INR Fibrinogen dRVVT Confirm Interp Factor V Activity POC ABG pH POC ABG pCO2 POC ABG pO2 ABG pO2 ABG HCO3 ABG Base Excess ABG Hemoglobin Oxyhemoglobin Sodium Potassium Chloride Carbon Dioxide BUN 45 H Creatinine Glucose 115 H POC Glucose 140 H 144 H Lactic Acid Calcium Phosphorus Magnesium Direct Bilirubin AST ALT Alkaline Phosphatase Lactate Dehydrogenase Troponin T C-Reactive Protein Total Protein Albumin Prealbumin Triglycerides Cholesterol LDL Cholesterol Direct HDL Cholesterol Urine pH Urine WBC (Auto) Urine Creatinine Urine Total Protein Fluid Total Protein Vancomycin Trough Rheumatoid Factor Complement C4 Miscellaneous Test Crossmatch 12/02/16 12/02/16 12/02/16 05:31 11:20 17:38 WBC RBC Hgb Hct MCV MCH MCHC RDW Plt Count Lymph % (Auto) [place] % (Auto) Lymph # [place] # Baso # Seg Neutrophils % Seg Neuts % (Manual) Lymphocytes % (Manual) Monocytes % (Manual) Eosinophils % (Manual) Basophils % (Manual) Nucleated RBC % Seg Neutrophils # Seg Neutrophils # Man Lymphocytes # (Manual) Monocytes # (Manual) Eosinophils # (Manual) Basophils # (Manual) PT INR Fibrinogen dRVVT Confirm Interp Factor V Activity POC ABG pH POC ABG pCO2 POC ABG pO2 ABG pO2 ABG HCO3 ABG Base Excess ABG Hemoglobin Oxyhemoglobin Sodium Potassium Chloride Carbon Dioxide BUN Creatinine Glucose POC Glucose 136 H 177 H 139 H Lactic Acid Calcium Phosphorus Magnesium Direct Bilirubin AST ALT Alkaline Phosphatase Lactate Dehydrogenase Troponin T C-Reactive Protein Total Protein Albumin Prealbumin Triglycerides Cholesterol LDL Cholesterol Direct HDL Cholesterol Urine pH Urine WBC (Auto) Urine Creatinine Urine Total Protein Fluid Total Protein Vancomycin Trough Rheumatoid Factor Complement C4 Miscellaneous Test Crossmatch 12/02/16 12/03/16 12/03/16 23:43 04:00 04:00 WBC 20.4 H RBC 2.74 L Hgb 7.4 L Hct 23.6 L MCV MCH 27 L MCHC RDW 17.1 H Plt Count Lymph % (Auto) [place] % (Auto) Lymph # [place] # Baso # Seg Neutrophils % Seg Neuts % (Manual) 31.0 L Lymphocytes % (Manual) Monocytes % (Manual) Eosinophils % (Manual) Basophils % (Manual) Nucleated RBC % Seg Neutrophils # Seg Neutrophils # Man Lymphocytes # (Manual) Monocytes # (Manual) Eosinophils # (Manual) Basophils # (Manual) PT INR Fibrinogen dRVVT Confirm Interp Factor V Activity POC ABG pH POC ABG pCO2 POC ABG pO2 ABG pO2 ABG HCO3 ABG Base Excess ABG Hemoglobin Oxyhemoglobin Sodium Potassium Chloride Carbon Dioxide BUN 61 H Creatinine 1.6 H Glucose 119 H POC Glucose 158 H Lactic Acid Calcium Phosphorus Magnesium Direct Bilirubin AST ALT Alkaline Phosphatase Lactate Dehydrogenase Troponin T C-Reactive Protein Total Protein Albumin Prealbumin Triglycerides Cholesterol LDL Cholesterol Direct HDL Cholesterol Urine pH Urine WBC (Auto) Urine Creatinine Urine Total Protein Fluid Total Protein Vancomycin Trough Rheumatoid Factor Complement C4 Miscellaneous Test Crossmatch 12/03/16 12/03/16 12/03/16 05:02 12:11 18:16 WBC RBC Hgb Hct MCV MCH MCHC RDW Plt Count Lymph % (Auto) [place] % (Auto) Lymph # [place] # Baso # Seg Neutrophils % Seg Neuts % (Manual) Lymphocytes % (Manual) Monocytes % (Manual) Eosinophils % (Manual) Basophils % (Manual) Nucleated RBC % Seg Neutrophils # Seg Neutrophils # Man Lymphocytes # (Manual) Monocytes # (Manual) Eosinophils # (Manual) Basophils # (Manual) PT INR Fibrinogen dRVVT Confirm Interp Factor V Activity POC ABG pH POC ABG pCO2 POC ABG pO2 ABG pO2 ABG HCO3 ABG Base Excess ABG Hemoglobin Oxyhemoglobin Sodium Potassium Chloride Carbon Dioxide BUN Creatinine Glucose POC Glucose 146 H 157 H 124 H Lactic Acid Calcium Phosphorus Magnesium Direct Bilirubin AST ALT Alkaline Phosphatase Lactate Dehydrogenase Troponin T C-Reactive Protein Total Protein Albumin Prealbumin Triglycerides Cholesterol LDL Cholesterol Direct HDL Cholesterol Urine pH Urine WBC (Auto) Urine Creatinine Urine Total Protein Fluid Total Protein Vancomycin Trough Rheumatoid Factor Complement C4 Miscellaneous Test Crossmatch 12/03/16 12/04/16 12/04/16 23:41 04:00 04:45 WBC RBC Hgb Hct MCV MCH MCHC RDW Plt Count Lymph % (Auto) [place] % (Auto) Lymph # Trigg # Baso # Seg Neutrophils % Seg Neuts % (Manual) Lymphocytes % (Manual) Monocytes % (Manual) Eosinophils % (Manual) Basophils % (Manual) Nucleated RBC % Seg Neutrophils # Seg Neutrophils # Man Lymphocytes # (Manual) Monocytes # (Manual) Eosinophils # (Manual) Basophils # (Manual) PT INR Fibrinogen dRVVT Confirm Interp Factor V Activity POC ABG pH POC ABG pCO2 POC ABG pO2 ABG pO2 ABG HCO3 ABG Base Excess ABG Hemoglobin Oxyhemoglobin Sodium Potassium Chloride Carbon Dioxide BUN 76 H Creatinine 1.6 H Glucose POC Glucose 130 H 136 H Lactic Acid Calcium Phosphorus Magnesium Direct Bilirubin AST ALT Alkaline Phosphatase 155 H Lactate Dehydrogenase Troponin T C-Reactive Protein Total Protein 5.5 L Albumin 1.5 L Prealbumin Triglycerides Cholesterol LDL Cholesterol Direct HDL Cholesterol Urine pH Urine WBC (Auto) Urine Creatinine Urine Total Protein Fluid Total Protein Vancomycin Trough Rheumatoid Factor Complement C4 Miscellaneous Test Crossmatch 12/04/16 12/04/16 12/05/16 12:08 17:23 00:10 WBC RBC Hgb Hct MCV MCH MCHC RDW Plt Count Lymph % (Auto) [place] % (Auto) Lymph # [place]igg # Baso # Seg Neutrophils % Seg Neuts % (Manual) Lymphocytes % (Manual) Monocytes % (Manual) Eosinophils % (Manual) Basophils % (Manual) Nucleated RBC % Seg Neutrophils # Seg Neutrophils # Man Lymphocytes # (Manual) Monocytes # (Manual) Eosinophils # (Manual) Basophils # (Manual) PT INR Fibrinogen dRVVT Confirm Interp Factor V Activity POC ABG pH POC ABG pCO2 POC ABG pO2 ABG pO2 ABG HCO3 ABG Base Excess ABG Hemoglobin Oxyhemoglobin Sodium Potassium Chloride Carbon Dioxide BUN Creatinine Glucose POC Glucose 114 H 129 H 124 H Lactic Acid Calcium Phosphorus Magnesium Direct Bilirubin AST ALT Alkaline Phosphatase Lactate Dehydrogenase Troponin T C-Reactive Protein Total Protein Albumin Prealbumin Triglycerides Cholesterol LDL Cholesterol Direct HDL Cholesterol Urine pH Urine WBC (Auto) Urine Creatinine Urine Total Protein Fluid Total Protein Vancomycin Trough Rheumatoid Factor Complement C4 Miscellaneous Test Crossmatch 12/05/16 12/05/16 12/05/16 05:00 05:00 05:18 WBC RBC Hgb Hct MCV MCH MCHC RDW Plt Count Lymph % (Auto) [place] % (Auto) Lymph # [place] # Baso # Seg Neutrophils % Seg Neuts % (Manual) Lymphocytes % (Manual) Monocytes % (Manual) Eosinophils % (Manual) Basophils % (Manual) Nucleated RBC % Seg Neutrophils # Seg Neutrophils # Man Lymphocytes # (Manual) Monocytes # (Manual) Eosinophils # (Manual) Basophils # (Manual) PT INR Fibrinogen dRVVT Confirm Interp Factor V Activity POC ABG pH POC ABG pCO2 POC ABG pO2 ABG pO2 ABG HCO3 ABG Base Excess ABG Hemoglobin Oxyhemoglobin Sodium Potassium Chloride Carbon Dioxide 21 L BUN 85 H Creatinine 1.9 H Glucose 131 H POC Glucose 154 H Lactic Acid Calcium Phosphorus Magnesium Direct Bilirubin AST ALT Alkaline Phosphatase Lactate Dehydrogenase Troponin T C-Reactive Protein 19.30 H Total Protein Albumin Prealbumin Triglycerides Cholesterol LDL Cholesterol Direct HDL Cholesterol Urine pH Urine WBC (Auto) Urine Creatinine Urine Total Protein Fluid Total Protein Vancomycin Trough Rheumatoid Factor Complement C4 Miscellaneous Test Crossmatch 12/05/16 12/05/16 12/05/16 11:43 17:46 23:25 WBC RBC Hgb Hct MCV MCH MCHC RDW Plt Count Lymph % (Auto) [place] % (Auto) Lymph # [place] # Baso # Seg Neutrophils % Seg Neuts % (Manual) Lymphocytes % (Manual) Monocytes % (Manual) Eosinophils % (Manual) Basophils % (Manual) Nucleated RBC % Seg Neutrophils # Seg Neutrophils # Man Lymphocytes # (Manual) Monocytes # (Manual) Eosinophils # (Manual) Basophils # (Manual) PT INR Fibrinogen dRVVT Confirm Interp Factor V Activity POC ABG pH POC ABG pCO2 POC ABG pO2 ABG pO2 ABG HCO3 ABG Base Excess ABG Hemoglobin Oxyhemoglobin Sodium Potassium Chloride Carbon Dioxide BUN Creatinine Glucose POC Glucose 117 H 113 H 111 H Lactic Acid Calcium Phosphorus Magnesium Direct Bilirubin AST ALT Alkaline Phosphatase Lactate Dehydrogenase Troponin T C-Reactive Protein Total Protein Albumin Prealbumin Triglycerides Cholesterol LDL Cholesterol Direct HDL Cholesterol Urine pH Urine WBC (Auto) Urine Creatinine Urine Total Protein Fluid Total Protein Vancomycin Trough Rheumatoid Factor Complement C4 Miscellaneous Test Crossmatch 12/05/16 12/06/16 12/06/16 Unknown 04:58 06:00 WBC RBC Hgb Hct MCV MCH MCHC RDW Plt Count Lymph % (Auto) [place] % (Auto) Lymph # [place] # Baso # Seg Neutrophils % Seg Neuts % (Manual) Lymphocytes % (Manual) Monocytes % (Manual) Eosinophils % (Manual) Basophils % (Manual) Nucleated RBC % Seg Neutrophils # Seg Neutrophils # Man Lymphocytes # (Manual) Monocytes # (Manual) Eosinophils # (Manual) Basophils # (Manual) PT INR Fibrinogen dRVVT Confirm Interp Factor V Activity POC ABG pH POC ABG pCO2 POC ABG pO2 ABG pO2 75.2 L ABG HCO3 ABG Base Excess -3.4 L ABG Hemoglobin 7.4 L Oxyhemoglobin 94.5 L Sodium Potassium Chloride Carbon Dioxide 20 L BUN 99 H Creatinine 2.1 H Glucose 126 H POC Glucose 145 H Lactic Acid Calcium Phosphorus 4.80 H Magnesium Direct Bilirubin AST ALT Alkaline Phosphatase Lactate Dehydrogenase Troponin T C-Reactive Protein Total Protein Albumin Prealbumin Triglycerides Cholesterol LDL Cholesterol Direct HDL Cholesterol Urine pH Urine WBC (Auto) Urine Creatinine Urine Total Protein Fluid Total Protein Vancomycin Trough Rheumatoid Factor Complement C4 Miscellaneous Test Crossmatch 12/06/16 12/06/16 12/06/16 06:46 11:54 17:55 WBC RBC Hgb 8.3 L Hct 26.4 L MCV MCH MCHC RDW Plt Count Lymph % (Auto) [place] % (Auto) Lymph # [place] # Baso # Seg Neutrophils % Seg Neuts % (Manual) Lymphocytes % (Manual) Monocytes % (Manual) Eosinophils % (Manual) Basophils % (Manual) Nucleated RBC % Seg Neutrophils # Seg Neutrophils # Man Lymphocytes # (Manual) Monocytes # (Manual) Eosinophils # (Manual) Basophils # (Manual) PT INR Fibrinogen dRVVT Confirm Interp Factor V Activity POC ABG pH POC ABG pCO2 POC ABG pO2 ABG pO2 ABG HCO3 ABG Base Excess ABG Hemoglobin Oxyhemoglobin Sodium Potassium Chloride Carbon Dioxide BUN Creatinine Glucose POC Glucose 126 H 157 H Lactic Acid Calcium Phosphorus Magnesium Direct Bilirubin AST ALT Alkaline Phosphatase Lactate Dehydrogenase Troponin T C-Reactive Protein Total Protein Albumin Prealbumin Triglycerides Cholesterol LDL Cholesterol Direct HDL Cholesterol Urine pH Urine WBC (Auto) Urine Creatinine Urine Total Protein Fluid Total Protein Vancomycin Trough Rheumatoid Factor Complement C4 Miscellaneous Test Crossmatch 12/06/16 12/07/16 12/07/16 23:59 05:34 06:30 WBC RBC Hgb Hct MCV MCH MCHC RDW Plt Count Lymph % (Auto) [place] % (Auto) Lymph # [place] # Baso # Seg Neutrophils % Seg Neuts % (Manual) Lymphocytes % (Manual) Monocytes % (Manual) Eosinophils % (Manual) Basophils % (Manual) Nucleated RBC % Seg Neutrophils # Seg Neutrophils # Man Lymphocytes # (Manual) Monocytes # (Manual) Eosinophils # (Manual) Basophils # (Manual) PT INR Fibrinogen dRVVT Confirm Interp Factor V Activity POC ABG pH POC ABG pCO2 POC ABG pO2 ABG pO2 ABG HCO3 ABG Base Excess ABG Hemoglobin Oxyhemoglobin Sodium Potassium Chloride Carbon Dioxide BUN 67 H Creatinine 1.4 H Glucose 126 H POC Glucose 129 H 129 H Lactic Acid Calcium Phosphorus Magnesium Direct Bilirubin AST ALT Alkaline Phosphatase Lactate Dehydrogenase Troponin T C-Reactive Protein Total Protein Albumin Prealbumin Triglycerides Cholesterol LDL Cholesterol Direct HDL Cholesterol Urine pH Urine WBC (Auto) Urine Creatinine Urine Total Protein Fluid Total Protein Vancomycin Trough Rheumatoid Factor Complement C4 Miscellaneous Test Crossmatch 12/07/16 12/07/16 12/07/16 06:30 08:00 09:45 WBC 18.8 H RBC 2.52 L Hgb 6.9 L 6.8 L Hct 21.2 L 21.1 L MCV MCH 27 L MCHC RDW 18.0 H Plt Count Lymph % (Auto) [place] % (Auto) 9.9 H Lymph # Trigg # 1.9 H Baso # Seg Neutrophils % 71.8 H Seg Neuts % (Manual) Lymphocytes % (Manual) Monocytes % (Manual) Eosinophils % (Manual) Basophils % (Manual) Nucleated RBC % Seg Neutrophils # 13.5 H Seg Neutrophils # Man Lymphocytes # (Manual) Monocytes # (Manual) Eosinophils # (Manual) Basophils # (Manual) PT INR Fibrinogen dRVVT Confirm Interp Factor V Activity POC ABG pH POC ABG pCO2 POC ABG pO2 ABG pO2 ABG HCO3 ABG Base Excess ABG Hemoglobin Oxyhemoglobin Sodium Potassium Chloride Carbon Dioxide BUN Creatinine Glucose POC Glucose Lactic Acid Calcium Phosphorus Magnesium Direct Bilirubin AST ALT Alkaline Phosphatase Lactate Dehydrogenase Troponin T C-Reactive Protein Total Protein Albumin Prealbumin Triglycerides Cholesterol LDL Cholesterol Direct HDL Cholesterol Urine pH Urine WBC (Auto) Urine Creatinine Urine Total Protein Fluid Total Protein Vancomycin Trough Rheumatoid Factor Complement C4 Miscellaneous Test Crossmatch See Detail 12/07/16 12/07/16 12/07/16 11:44 18:19 23:59 WBC RBC Hgb Hct MCV MCH MCHC RDW Plt Count Lymph % (Auto) [place] % (Auto) Lymph # [place] # Baso # Seg Neutrophils % Seg Neuts % (Manual) Lymphocytes % (Manual) Monocytes % (Manual) Eosinophils % (Manual) Basophils % (Manual) Nucleated RBC % Seg Neutrophils # Seg Neutrophils # Man Lymphocytes # (Manual) Monocytes # (Manual) Eosinophils # (Manual) Basophils # (Manual) PT INR Fibrinogen dRVVT Confirm Interp Factor V Activity POC ABG pH POC ABG pCO2 POC ABG pO2 ABG pO2 ABG HCO3 ABG Base Excess ABG Hemoglobin Oxyhemoglobin Sodium Potassium Chloride Carbon Dioxide BUN Creatinine Glucose POC Glucose 137 H 138 H 133 H Lactic Acid Calcium Phosphorus Magnesium Direct Bilirubin AST ALT Alkaline Phosphatase Lactate Dehydrogenase Troponin T C-Reactive Protein Total Protein Albumin Prealbumin Triglycerides Cholesterol LDL Cholesterol Direct HDL Cholesterol Urine pH Urine WBC (Auto) Urine Creatinine Urine Total Protein Fluid Total Protein Vancomycin Trough Rheumatoid Factor Complement C4 Miscellaneous Test Crossmatch 12/08/16 12/08/16 12/08/16 05:25 05:30 05:30 WBC 23.8 H RBC 2.88 L Hgb 8.1 L Hct 24.3 L MCV MCH MCHC RDW 16.7 H Plt Count Lymph % (Auto) [place] % (Auto) Lymph # [place] # Baso # Seg Neutrophils % Seg Neuts % (Manual) 76.0 H Lymphocytes % (Manual) 9.0 L Monocytes % (Manual) 9.0 H Eosinophils % (Manual) Basophils % (Manual) Nucleated RBC % Seg Neutrophils # Seg Neutrophils # Man 18.1 H Lymphocytes # (Manual) Monocytes # (Manual) 2.1 H Eosinophils # (Manual) Basophils # (Manual) PT INR Fibrinogen dRVVT Confirm Interp Factor V Activity POC ABG pH POC ABG pCO2 POC ABG pO2 ABG pO2 ABG HCO3 ABG Base Excess ABG Hemoglobin Oxyhemoglobin Sodium Potassium Chloride Carbon Dioxide 21 L BUN 76 H Creatinine 1.6 H Glucose 133 H POC Glucose 177 H Lactic Acid Calcium Phosphorus Magnesium Direct Bilirubin AST ALT Alkaline Phosphatase Lactate Dehydrogenase Troponin T C-Reactive Protein Total Protein Albumin Prealbumin Triglycerides Cholesterol LDL Cholesterol Direct HDL Cholesterol Urine pH Urine WBC (Auto) Urine Creatinine Urine Total Protein Fluid Total Protein Vancomycin Trough Rheumatoid Factor Complement C4 Miscellaneous Test Crossmatch 12/08/16 12/08/16 12/09/16 11:45 18:00 00:00 WBC RBC Hgb Hct MCV MCH MCHC RDW Plt Count Lymph % (Auto) [place] % (Auto) Lymph # [place] # Baso # Seg Neutrophils % Seg Neuts % (Manual) Lymphocytes % (Manual) Monocytes % (Manual) Eosinophils % (Manual) Basophils % (Manual) Nucleated RBC % Seg Neutrophils # Seg Neutrophils # Man Lymphocytes # (Manual) Monocytes # (Manual) Eosinophils # (Manual) Basophils # (Manual) PT INR Fibrinogen dRVVT Confirm Interp Factor V Activity POC ABG pH POC ABG pCO2 POC ABG pO2 ABG pO2 ABG HCO3 ABG Base Excess ABG Hemoglobin Oxyhemoglobin Sodium Potassium Chloride Carbon Dioxide BUN Creatinine Glucose POC Glucose 163 H 123 H 137 H Lactic Acid Calcium Phosphorus Magnesium Direct Bilirubin AST ALT Alkaline Phosphatase Lactate Dehydrogenase Troponin T C-Reactive Protein Total Protein Albumin Prealbumin Triglycerides Cholesterol LDL Cholesterol Direct HDL Cholesterol Urine pH Urine WBC (Auto) Urine Creatinine Urine Total Protein Fluid Total Protein Vancomycin Trough Rheumatoid Factor Complement C4 Miscellaneous Test Crossmatch 12/09/16 12/09/16 12/09/16 05:34 06:00 06:00 WBC 15.5 H RBC 2.87 L Hgb 8.0 L Hct 24.2 L MCV MCH MCHC RDW 17.2 H Plt Count Lymph % (Auto) [place] % (Auto) 11.6 H Lymph # [place] # 1.8 H Baso # Seg Neutrophils % 70.8 H Seg Neuts % (Manual) Lymphocytes % (Manual) Monocytes % (Manual) Eosinophils % (Manual) Basophils % (Manual) Nucleated RBC % Seg Neutrophils # 11.0 H Seg Neutrophils # Man Lymphocytes # (Manual) Monocytes # (Manual) Eosinophils # (Manual) Basophils # (Manual) PT INR Fibrinogen dRVVT Confirm Interp Factor V Activity POC ABG pH POC ABG pCO2 POC ABG pO2 ABG pO2 ABG HCO3 ABG Base Excess ABG Hemoglobin Oxyhemoglobin Sodium Potassium Chloride Carbon Dioxide BUN 51 H Creatinine Glucose 117 H POC Glucose 136 H Lactic Acid Calcium Phosphorus Magnesium Direct Bilirubin AST ALT Alkaline Phosphatase Lactate Dehydrogenase Troponin T C-Reactive Protein Total Protein Albumin Prealbumin Triglycerides Cholesterol LDL Cholesterol Direct HDL Cholesterol Urine pH Urine WBC (Auto) Urine Creatinine Urine Total Protein Fluid Total Protein Vancomycin Trough Rheumatoid Factor Complement C4 Miscellaneous Test Crossmatch 12/09/16 12/09/16 12/09/16 12:29 17:52 23:10 WBC RBC Hgb Hct MCV MCH MCHC RDW Plt Count Lymph % (Auto) [place] % (Auto) Lymph # [place] # Baso # Seg Neutrophils % Seg Neuts % (Manual) Lymphocytes % (Manual) Monocytes % (Manual) Eosinophils % (Manual) Basophils % (Manual) Nucleated RBC % Seg Neutrophils # Seg Neutrophils # Man Lymphocytes # (Manual) Monocytes # (Manual) Eosinophils # (Manual) Basophils # (Manual) PT INR Fibrinogen dRVVT Confirm Interp Factor V Activity POC ABG pH POC ABG pCO2 POC ABG pO2 ABG pO2 ABG HCO3 ABG Base Excess ABG Hemoglobin Oxyhemoglobin Sodium Potassium Chloride Carbon Dioxide BUN Creatinine Glucose POC Glucose 139 H 140 H 129 H Lactic Acid Calcium Phosphorus Magnesium Direct Bilirubin AST ALT Alkaline Phosphatase Lactate Dehydrogenase Troponin T C-Reactive Protein Total Protein Albumin Prealbumin Triglycerides Cholesterol LDL Cholesterol Direct HDL Cholesterol Urine pH Urine WBC (Auto) Urine Creatinine Urine Total Protein Fluid Total Protein Vancomycin Trough Rheumatoid Factor Complement C4 Miscellaneous Test Crossmatch 12/10/16 12/10/16 12/10/16 05:00 05:00 06:54 WBC 15.7 H RBC 2.87 L Hgb 8.2 L Hct 24.4 L MCV MCH MCHC RDW 17.2 H Plt Count Lymph % (Auto) [place] % (Auto) 8.3 H Lymph # [place] # 1.3 H Baso # Seg Neutrophils % 72.8 H Seg Neuts % (Manual) Lymphocytes % (Manual) Monocytes % (Manual) Eosinophils % (Manual) Basophils % (Manual) Nucleated RBC % Seg Neutrophils # 11.4 H Seg Neutrophils # Man Lymphocytes # (Manual) Monocytes # (Manual) Eosinophils # (Manual) Basophils # (Manual) PT INR Fibrinogen dRVVT Confirm Interp Factor V Activity POC ABG pH POC ABG pCO2 POC ABG pO2 ABG pO2 ABG HCO3 ABG Base Excess ABG Hemoglobin Oxyhemoglobin Sodium Potassium Chloride Carbon Dioxide BUN 64 H Creatinine 1.4 H Glucose 134 H POC Glucose 154 H Lactic Acid Calcium Phosphorus Magnesium Direct Bilirubin AST ALT Alkaline Phosphatase Lactate Dehydrogenase Troponin T C-Reactive Protein Total Protein Albumin Prealbumin Triglycerides Cholesterol LDL Cholesterol Direct HDL Cholesterol Urine pH Urine WBC (Auto) Urine Creatinine Urine Total Protein Fluid Total Protein Vancomycin Trough Rheumatoid Factor Complement C4 Miscellaneous Test Crossmatch 12/10/16 12/10/16 12/10/16 11:58 17:29 23:52 WBC RBC Hgb Hct MCV MCH MCHC RDW Plt Count Lymph % (Auto) [place] % (Auto) Lymph # [place] # Baso # Seg Neutrophils % Seg Neuts % (Manual) Lymphocytes % (Manual) Monocytes % (Manual) Eosinophils % (Manual) Basophils % (Manual) Nucleated RBC % Seg Neutrophils # Seg Neutrophils # Man Lymphocytes # (Manual) Monocytes # (Manual) Eosinophils # (Manual) Basophils # (Manual) PT INR Fibrinogen dRVVT Confirm Interp Factor V Activity POC ABG pH POC ABG pCO2 POC ABG pO2 ABG pO2 ABG HCO3 ABG Base Excess ABG Hemoglobin Oxyhemoglobin Sodium Potassium Chloride Carbon Dioxide BUN Creatinine Glucose POC Glucose 144 H 163 H 125 H Lactic Acid Calcium Phosphorus Magnesium Direct Bilirubin AST ALT Alkaline Phosphatase Lactate Dehydrogenase Troponin T C-Reactive Protein Total Protein Albumin Prealbumin Triglycerides Cholesterol LDL Cholesterol Direct HDL Cholesterol Urine pH Urine WBC (Auto) Urine Creatinine Urine Total Protein Fluid Total Protein Vancomycin Trough Rheumatoid Factor Complement C4 Miscellaneous Test Crossmatch 12/11/16 12/11/16 12/11/16 05:38 06:30 06:30 WBC 14.4 H RBC 2.76 L Hgb 7.7 L Hct 23.4 L MCV MCH MCHC RDW 17.2 H Plt Count Lymph % (Auto) [place] % (Auto) 8.8 H Lymph # [place] # 1.3 H Baso # Seg Neutrophils % 72.5 H Seg Neuts % (Manual) Lymphocytes % (Manual) Monocytes % (Manual) Eosinophils % (Manual) Basophils % (Manual) Nucleated RBC % Seg Neutrophils # 10.5 H Seg Neutrophils # Man Lymphocytes # (Manual) Monocytes # (Manual) Eosinophils # (Manual) Basophils # (Manual) PT INR Fibrinogen dRVVT Confirm Interp Factor V Activity POC ABG pH POC ABG pCO2 POC ABG pO2 ABG pO2 ABG HCO3 ABG Base Excess ABG Hemoglobin Oxyhemoglobin Sodium Potassium Chloride Carbon Dioxide BUN 43 H Creatinine Glucose 124 H POC Glucose 141 H Lactic Acid Calcium 8.3 L Phosphorus Magnesium 1.60 L Direct Bilirubin AST ALT Alkaline Phosphatase Lactate Dehydrogenase Troponin T C-Reactive Protein Total Protein Albumin Prealbumin Triglycerides Cholesterol LDL Cholesterol Direct HDL Cholesterol Urine pH Urine WBC (Auto) Urine Creatinine Urine Total Protein Fluid Total Protein Vancomycin Trough Rheumatoid Factor Complement C4 Miscellaneous Test Crossmatch 12/11/16 12/11/16 12/11/16 11:15 17:59 23:48 WBC RBC Hgb Hct MCV MCH MCHC RDW Plt Count Lymph % (Auto) [place] % (Auto) Lymph # [place] # Baso # Seg Neutrophils % Seg Neuts % (Manual) Lymphocytes % (Manual) Monocytes % (Manual) Eosinophils % (Manual) Basophils % (Manual) Nucleated RBC % Seg Neutrophils # Seg Neutrophils # Man Lymphocytes # (Manual) Monocytes # (Manual) Eosinophils # (Manual) Basophils # (Manual) PT INR Fibrinogen dRVVT Confirm Interp Factor V Activity POC ABG pH POC ABG pCO2 POC ABG pO2 ABG pO2 ABG HCO3 ABG Base Excess ABG Hemoglobin Oxyhemoglobin Sodium Potassium Chloride Carbon Dioxide BUN Creatinine Glucose POC Glucose 188 H 106 H 119 H Lactic Acid Calcium Phosphorus Magnesium Direct Bilirubin AST ALT Alkaline Phosphatase Lactate Dehydrogenase Troponin T C-Reactive Protein Total Protein Albumin Prealbumin Triglycerides Cholesterol LDL Cholesterol Direct HDL Cholesterol Urine pH Urine WBC (Auto) Urine Creatinine Urine Total Protein Fluid Total Protein Vancomycin Trough Rheumatoid Factor Complement C4 Miscellaneous Test Crossmatch 12/12/16 12/12/16 12/12/16 05:00 06:01 12:20 WBC 16.7 H RBC 2.87 L Hgb 8.0 L Hct 24.2 L MCV MCH MCHC RDW 17.6 H Plt Count Lymph % (Auto) [place] % (Auto) Lymph # [place] # 1.2 H Baso # Seg Neutrophils % 75.3 H Seg Neuts % (Manual) Lymphocytes % (Manual) Monocytes % (Manual) Eosinophils % (Manual) Basophils % (Manual) Nucleated RBC % Seg Neutrophils # 12.6 H Seg Neutrophils # Man Lymphocytes # (Manual) Monocytes # (Manual) Eosinophils # (Manual) Basophils # (Manual) PT INR Fibrinogen dRVVT Confirm Interp Factor V Activity POC ABG pH POC ABG pCO2 POC ABG pO2 ABG pO2 ABG HCO3 ABG Base Excess ABG Hemoglobin Oxyhemoglobin Sodium Potassium Chloride Carbon Dioxide BUN Creatinine Glucose POC Glucose 134 H 149 H Lactic Acid Calcium Phosphorus Magnesium Direct Bilirubin AST ALT Alkaline Phosphatase Lactate Dehydrogenase Troponin T C-Reactive Protein Total Protein Albumin Prealbumin Triglycerides Cholesterol LDL Cholesterol Direct HDL Cholesterol Urine pH Urine WBC (Auto) Urine Creatinine Urine Total Protein Fluid Total Protein Vancomycin Trough Rheumatoid Factor Complement C4 Miscellaneous Test Crossmatch 12/12/16 12/12/16 12/12/16 17:38 23:01 Unknown WBC RBC Hgb Hct MCV MCH MCHC RDW Plt Count Lymph % (Auto) [place] % (Auto) Lymph # [place] # Baso # Seg Neutrophils % Seg Neuts % (Manual) Lymphocytes % (Manual) Monocytes % (Manual) Eosinophils % (Manual) Basophils % (Manual) Nucleated RBC % Seg Neutrophils # Seg Neutrophils # Man Lymphocytes # (Manual) Monocytes # (Manual) Eosinophils # (Manual) Basophils # (Manual) PT INR Fibrinogen dRVVT Confirm Interp Factor V Activity POC ABG pH POC ABG pCO2 POC ABG pO2 ABG pO2 ABG HCO3 ABG Base Excess ABG Hemoglobin Oxyhemoglobin Sodium Potassium Chloride Carbon Dioxide BUN 60 H Creatinine 1.3 H Glucose 126 H POC Glucose 127 H 144 H Lactic Acid Calcium Phosphorus Magnesium Direct Bilirubin AST ALT Alkaline Phosphatase Lactate Dehydrogenase Troponin T C-Reactive Protein Total Protein Albumin Prealbumin Triglycerides Cholesterol LDL Cholesterol Direct HDL Cholesterol Urine pH Urine WBC (Auto) Urine Creatinine Urine Total Protein Fluid Total Protein Vancomycin Trough Rheumatoid Factor Complement C4 Miscellaneous Test Crossmatch 12/13/16 12/13/16 12/13/16 04:00 04:00 05:19 WBC 18.7 H RBC 2.89 L Hgb 8.3 L Hct 24.6 L MCV MCH MCHC RDW 17.5 H Plt Count Lymph % (Auto) [place] % (Auto) Lymph # [place] # 1.3 H Baso # Seg Neutrophils % 71.5 H Seg Neuts % (Manual) Lymphocytes % (Manual) Monocytes % (Manual) Eosinophils % (Manual) Basophils % (Manual) Nucleated RBC % Seg Neutrophils # 13.4 H Seg Neutrophils # Man Lymphocytes # (Manual) Monocytes # (Manual) Eosinophils # (Manual) Basophils # (Manual) PT INR Fibrinogen dRVVT Confirm Interp Factor V Activity POC ABG pH POC ABG pCO2 POC ABG pO2 ABG pO2 ABG HCO3 ABG Base Excess ABG Hemoglobin Oxyhemoglobin Sodium Potassium Chloride Carbon Dioxide BUN 73 H Creatinine 1.5 H Glucose 141 H POC Glucose 171 H Lactic Acid Calcium Phosphorus Magnesium Direct Bilirubin AST ALT Alkaline Phosphatase Lactate Dehydrogenase Troponin T C-Reactive Protein Total Protein Albumin Prealbumin Triglycerides Cholesterol LDL Cholesterol Direct HDL Cholesterol Urine pH Urine WBC (Auto) Urine Creatinine Urine Total Protein Fluid Total Protein Vancomycin Trough Rheumatoid Factor Complement C4 Miscellaneous Test Crossmatch 12/13/16 12/13/16 12/14/16 12:28 16:48 00:01 WBC RBC Hgb Hct MCV MCH MCHC RDW Plt Count Lymph % (Auto) [place] % (Auto) Lymph # [place] # Baso # Seg Neutrophils % Seg Neuts % (Manual) Lymphocytes % (Manual) Monocytes % (Manual) Eosinophils % (Manual) Basophils % (Manual) Nucleated RBC % Seg Neutrophils # Seg Neutrophils # Man Lymphocytes # (Manual) Monocytes # (Manual) Eosinophils # (Manual) Basophils # (Manual) PT INR Fibrinogen dRVVT Confirm Interp Factor V Activity POC ABG pH POC ABG pCO2 POC ABG pO2 ABG pO2 ABG HCO3 ABG Base Excess ABG Hemoglobin Oxyhemoglobin Sodium Potassium Chloride Carbon Dioxide BUN Creatinine Glucose POC Glucose 206 H 173 H 139 H Lactic Acid Calcium Phosphorus Magnesium Direct Bilirubin AST ALT Alkaline Phosphatase Lactate Dehydrogenase Troponin T C-Reactive Protein Total Protein Albumin Prealbumin Triglycerides Cholesterol LDL Cholesterol Direct HDL Cholesterol Urine pH Urine WBC (Auto) Urine Creatinine Urine Total Protein Fluid Total Protein Vancomycin Trough Rheumatoid Factor Complement C4 Miscellaneous Test Crossmatch 12/14/16 12/14/16 12/14/16 05:16 06:10 11:17 WBC RBC Hgb Hct MCV MCH MCHC RDW Plt Count Lymph % (Auto) [place] % (Auto) Lymph # [place] # Baso # Seg Neutrophils % Seg Neuts % (Manual) Lymphocytes % (Manual) Monocytes % (Manual) Eosinophils % (Manual) Basophils % (Manual) Nucleated RBC % Seg Neutrophils # Seg Neutrophils # Man Lymphocytes # (Manual) Monocytes # (Manual) Eosinophils # (Manual) Basophils # (Manual) PT INR Fibrinogen dRVVT Confirm Interp Factor V Activity POC ABG pH POC ABG pCO2 POC ABG pO2 ABG pO2 ABG HCO3 ABG Base Excess ABG Hemoglobin Oxyhemoglobin Sodium Potassium Chloride Carbon Dioxide BUN 57 H Creatinine 1.4 H Glucose 135 H POC Glucose 158 H 137 H Lactic Acid Calcium Phosphorus Magnesium Direct Bilirubin AST ALT Alkaline Phosphatase Lactate Dehydrogenase Troponin T C-Reactive Protein Total Protein Albumin Prealbumin Triglycerides Cholesterol LDL Cholesterol Direct HDL Cholesterol Urine pH Urine WBC (Auto) Urine Creatinine Urine Total Protein Fluid Total Protein Vancomycin Trough Rheumatoid Factor Complement C4 Miscellaneous Test Crossmatch 12/14/16 12/14/16 12/15/16 17:52 23:27 04:00 WBC RBC Hgb Hct MCV MCH MCHC RDW Plt Count Lymph % (Auto) Trigg % (Auto) Lymph # Trigg # Baso # Seg Neutrophils % Seg Neuts % (Manual) Lymphocytes % (Manual) Monocytes % (Manual) Eosinophils % (Manual) Basophils % (Manual) Nucleated RBC % Seg Neutrophils # Seg Neutrophils # Man Lymphocytes # (Manual) Monocytes # (Manual) Eosinophils # (Manual) Basophils # (Manual) PT INR Fibrinogen dRVVT Confirm Interp Factor V Activity POC ABG pH POC ABG pCO2 POC ABG pO2 ABG pO2 ABG HCO3 ABG Base Excess ABG Hemoglobin Oxyhemoglobin Sodium Potassium Chloride 97.9 L Carbon Dioxide BUN 75 H Creatinine 1.6 H Glucose 122 H POC Glucose 149 H 163 H Lactic Acid Calcium Phosphorus 5.20 H Magnesium Direct Bilirubin AST ALT Alkaline Phosphatase Lactate Dehydrogenase Troponin T C-Reactive Protein Total Protein Albumin Prealbumin Triglycerides Cholesterol LDL Cholesterol Direct HDL Cholesterol Urine pH Urine WBC (Auto) Urine Creatinine Urine Total Protein Fluid Total Protein Vancomycin Trough Rheumatoid Factor Complement C4 Miscellaneous Test Crossmatch 12/15/16 12/15/16 12/15/16 05:50 11:24 17:01 WBC RBC Hgb Hct MCV MCH MCHC RDW Plt Count Lymph % (Auto) [place] % (Auto) Lymph # Trigg # Baso # Seg Neutrophils % Seg Neuts % (Manual) Lymphocytes % (Manual) Monocytes % (Manual) Eosinophils % (Manual) Basophils % (Manual) Nucleated RBC % Seg Neutrophils # Seg Neutrophils # Man Lymphocytes # (Manual) Monocytes # (Manual) Eosinophils # (Manual) Basophils # (Manual) PT INR Fibrinogen dRVVT Confirm Interp Factor V Activity POC ABG pH POC ABG pCO2 POC ABG pO2 ABG pO2 ABG HCO3 ABG Base Excess ABG Hemoglobin Oxyhemoglobin Sodium Potassium Chloride Carbon Dioxide BUN Creatinine Glucose POC Glucose 150 H 146 H 167 H Lactic Acid Calcium Phosphorus Magnesium Direct Bilirubin AST ALT Alkaline Phosphatase Lactate Dehydrogenase Troponin T C-Reactive Protein Total Protein Albumin Prealbumin Triglycerides Cholesterol LDL Cholesterol Direct HDL Cholesterol Urine pH Urine WBC (Auto) Urine Creatinine Urine Total Protein Fluid Total Protein Vancomycin Trough Rheumatoid Factor Complement C4 Miscellaneous Test Crossmatch 12/15/16 12/16/16 12/16/16 23:34 05:25 11:24 WBC RBC Hgb Hct MCV MCH MCHC RDW Plt Count Lymph % (Auto) [place] % (Auto) Lymph # Trigg # Baso # Seg Neutrophils % Seg Neuts % (Manual) Lymphocytes % (Manual) Monocytes % (Manual) Eosinophils % (Manual) Basophils % (Manual) Nucleated RBC % Seg Neutrophils # Seg Neutrophils # Man Lymphocytes # (Manual) Monocytes # (Manual) Eosinophils # (Manual) Basophils # (Manual) PT INR Fibrinogen dRVVT Confirm Interp Factor V Activity POC ABG pH POC ABG pCO2 POC ABG pO2 ABG pO2 ABG HCO3 ABG Base Excess ABG Hemoglobin Oxyhemoglobin Sodium Potassium Chloride Carbon Dioxide BUN Creatinine Glucose POC Glucose 127 H 139 H 165 H Lactic Acid Calcium Phosphorus Magnesium Direct Bilirubin AST ALT Alkaline Phosphatase Lactate Dehydrogenase Troponin T C-Reactive Protein Total Protein Albumin Prealbumin Triglycerides Cholesterol LDL Cholesterol Direct HDL Cholesterol Urine pH Urine WBC (Auto) Urine Creatinine Urine Total Protein Fluid Total Protein Vancomycin Trough Rheumatoid Factor Complement C4 Miscellaneous Test Crossmatch 12/16/16 12/16/16 12/16/16 15:30 16:25 17:31 WBC 17.8 H RBC 2.38 L Hgb 6.4 L Hct 20.3 L MCV MCH 27 L MCHC RDW 17.4 H Plt Count Lymph % (Auto) [place] % (Auto) Lymph # Trigg # Baso # Seg Neutrophils % Seg Neuts % (Manual) Lymphocytes % (Manual) Monocytes % (Manual) 10.0 H Eosinophils % (Manual) Basophils % (Manual) Nucleated RBC % Seg Neutrophils # Seg Neutrophils # Man 8.5 H Lymphocytes # (Manual) Monocytes # (Manual) 1.8 H Eosinophils # (Manual) Basophils # (Manual) PT INR Fibrinogen dRVVT Confirm Interp Factor V Activity POC ABG pH POC ABG pCO2 POC ABG pO2 ABG pO2 ABG HCO3 ABG Base Excess ABG Hemoglobin Oxyhemoglobin Sodium Potassium Chloride Carbon Dioxide BUN Creatinine Glucose POC Glucose 176 H Lactic Acid Calcium Phosphorus Magnesium Direct Bilirubin AST ALT Alkaline Phosphatase Lactate Dehydrogenase Troponin T C-Reactive Protein Total Protein Albumin Prealbumin Triglycerides Cholesterol LDL Cholesterol Direct HDL Cholesterol Urine pH Urine WBC (Auto) Urine Creatinine Urine Total Protein Fluid Total Protein Vancomycin Trough Rheumatoid Factor Complement C4 Miscellaneous Test Crossmatch See Detail 12/17/16 12/17/16 12/17/16 00:14 04:00 05:00 WBC 20.0 H RBC 2.99 L Hgb 8.5 L Hct 25.7 L MCV MCH MCHC RDW 17.2 H Plt Count Lymph % (Auto) [place] % (Auto) Lymph # [place]igg # Baso # Seg Neutrophils % Seg Neuts % (Manual) Lymphocytes % (Manual) Monocytes % (Manual) Eosinophils % (Manual) Basophils % (Manual) Nucleated RBC % Seg Neutrophils # Seg Neutrophils # Man Lymphocytes # (Manual) Monocytes # (Manual) Eosinophils # (Manual) Basophils # (Manual) PT INR Fibrinogen dRVVT Confirm Interp Factor V Activity POC ABG pH POC ABG pCO2 POC ABG pO2 ABG pO2 ABG HCO3 ABG Base Excess ABG Hemoglobin Oxyhemoglobin Sodium Potassium Chloride 97.7 L Carbon Dioxide BUN 73 H Creatinine 1.7 H Glucose 136 H POC Glucose 148 H Lactic Acid Calcium Phosphorus 2.20 L Magnesium 2.70 H Direct Bilirubin AST ALT Alkaline Phosphatase Lactate Dehydrogenase Troponin T C-Reactive Protein Total Protein Albumin Prealbumin Triglycerides Cholesterol LDL Cholesterol Direct HDL Cholesterol Urine pH Urine WBC (Auto) Urine Creatinine Urine Total Protein Fluid Total Protein Vancomycin Trough Rheumatoid Factor Complement C4 Miscellaneous Test Crossmatch 12/17/16 12/17/16 12/17/16 05:39 12:50 16:32 WBC RBC Hgb Hct MCV MCH MCHC RDW Plt Count Lymph % (Auto) [place] % (Auto) Lymph # [place] # Baso # Seg Neutrophils % Seg Neuts % (Manual) Lymphocytes % (Manual) Monocytes % (Manual) Eosinophils % (Manual) Basophils % (Manual) Nucleated RBC % Seg Neutrophils # Seg Neutrophils # Man Lymphocytes # (Manual) Monocytes # (Manual) Eosinophils # (Manual) Basophils # (Manual) PT INR Fibrinogen dRVVT Confirm Interp Factor V Activity POC ABG pH POC ABG pCO2 POC ABG pO2 ABG pO2 ABG HCO3 ABG Base Excess ABG Hemoglobin Oxyhemoglobin Sodium Potassium Chloride Carbon Dioxide BUN Creatinine Glucose POC Glucose 162 H 146 H 169 H Lactic Acid Calcium Phosphorus Magnesium Direct Bilirubin AST ALT Alkaline Phosphatase Lactate Dehydrogenase Troponin T C-Reactive Protein Total Protein Albumin Prealbumin Triglycerides Cholesterol LDL Cholesterol Direct HDL Cholesterol Urine pH Urine WBC (Auto) Urine Creatinine Urine Total Protein Fluid Total Protein Vancomycin Trough Rheumatoid Factor Complement C4 Miscellaneous Test Crossmatch 12/17/16 12/18/16 12/18/16 23:57 05:00 05:32 WBC RBC Hgb Hct MCV MCH MCHC RDW Plt Count Lymph % (Auto) [place] % (Auto) Lymph # [place]igg # Baso # Seg Neutrophils % Seg Neuts % (Manual) Lymphocytes % (Manual) Monocytes % (Manual) Eosinophils % (Manual) Basophils % (Manual) Nucleated RBC % Seg Neutrophils # Seg Neutrophils # Man Lymphocytes # (Manual) Monocytes # (Manual) Eosinophils # (Manual) Basophils # (Manual) PT INR Fibrinogen dRVVT Confirm Interp Factor V Activity POC ABG pH POC ABG pCO2 POC ABG pO2 ABG pO2 ABG HCO3 ABG Base Excess ABG Hemoglobin Oxyhemoglobin Sodium Potassium Chloride 97.0 L Carbon Dioxide BUN 63 H Creatinine 1.4 H Glucose 174 H POC Glucose 145 H 201 H Lactic Acid Calcium Phosphorus 1.70 L D Magnesium Direct Bilirubin AST ALT Alkaline Phosphatase 257 H Lactate Dehydrogenase Troponin T C-Reactive Protein Total Protein 5.9 L Albumin 1.8 L Prealbumin Triglycerides Cholesterol LDL Cholesterol Direct HDL Cholesterol Urine pH Urine WBC (Auto) Urine Creatinine Urine Total Protein Fluid Total Protein Vancomycin Trough Rheumatoid Factor Complement C4 Miscellaneous Test Crossmatch 12/18/16 12/18/16 12/18/16 11:43 16:52 23:52 WBC RBC Hgb Hct MCV MCH MCHC RDW Plt Count Lymph % (Auto) [place] % (Auto) Lymph # [place] # Baso # Seg Neutrophils % Seg Neuts % (Manual) Lymphocytes % (Manual) Monocytes % (Manual) Eosinophils % (Manual) Basophils % (Manual) Nucleated RBC % Seg Neutrophils # Seg Neutrophils # Man Lymphocytes # (Manual) Monocytes # (Manual) Eosinophils # (Manual) Basophils # (Manual) PT INR Fibrinogen dRVVT Confirm Interp Factor V Activity POC ABG pH POC ABG pCO2 POC ABG pO2 ABG pO2 ABG HCO3 ABG Base Excess ABG Hemoglobin Oxyhemoglobin Sodium Potassium Chloride Carbon Dioxide BUN Creatinine Glucose POC Glucose 177 H 110 H 162 H Lactic Acid Calcium Phosphorus Magnesium Direct Bilirubin AST ALT Alkaline Phosphatase Lactate Dehydrogenase Troponin T C-Reactive Protein Total Protein Albumin Prealbumin Triglycerides Cholesterol LDL Cholesterol Direct HDL Cholesterol Urine pH Urine WBC (Auto) Urine Creatinine Urine Total Protein Fluid Total Protein Vancomycin Trough Rheumatoid Factor Complement C4 Miscellaneous Test Crossmatch 12/19/16 12/19/16 12/19/16 05:02 05:24 09:30 WBC 20.1 H RBC 2.73 L Hgb 7.6 L Hct 23.6 L MCV MCH MCHC RDW 17.6 H Plt Count Lymph % (Auto) [place] % (Auto) Lymph # [place]igg # Baso # Seg Neutrophils % Seg Neuts % (Manual) Lymphocytes % (Manual) 13.0 L Monocytes % (Manual) Eosinophils % (Manual) Basophils % (Manual) Nucleated RBC % 1.0 H Seg Neutrophils # Seg Neutrophils # Man 12.9 H Lymphocytes # (Manual) Monocytes # (Manual) 1.4 H Eosinophils # (Manual) Basophils # (Manual) 0.2 H PT INR Fibrinogen dRVVT Confirm Interp Factor V Activity POC ABG pH POC ABG pCO2 POC ABG pO2 ABG pO2 ABG HCO3 ABG Base Excess ABG Hemoglobin Oxyhemoglobin Sodium Potassium Chloride 97.8 L Carbon Dioxide BUN 84 H Creatinine 1.6 H Glucose 133 H POC Glucose 134 H Lactic Acid Calcium Phosphorus Magnesium Direct Bilirubin AST ALT Alkaline Phosphatase Lactate Dehydrogenase Troponin T C-Reactive Protein Total Protein Albumin Prealbumin Triglycerides Cholesterol LDL Cholesterol Direct HDL Cholesterol Urine pH Urine WBC (Auto) Urine Creatinine Urine Total Protein Fluid Total Protein Vancomycin Trough Rheumatoid Factor Complement C4 Miscellaneous Test Crossmatch 12/19/16 12/19/16 12/19/16 09:36 11:12 18:29 WBC RBC Hgb Hct MCV MCH MCHC RDW Plt Count Lymph % (Auto) [place] % (Auto) Lymph # [place] # Baso # Seg Neutrophils % Seg Neuts % (Manual) Lymphocytes % (Manual) Monocytes % (Manual) Eosinophils % (Manual) Basophils % (Manual) Nucleated RBC % Seg Neutrophils # Seg Neutrophils # Man Lymphocytes # (Manual) Monocytes # (Manual) Eosinophils # (Manual) Basophils # (Manual) PT INR Fibrinogen dRVVT Confirm Interp Factor V Activity POC ABG pH 7.503 H POC ABG pCO2 30.1 L POC ABG pO2 ABG pO2 ABG HCO3 ABG Base Excess ABG Hemoglobin Oxyhemoglobin Sodium Potassium Chloride Carbon Dioxide BUN Creatinine Glucose POC Glucose 138 H 156 H Lactic Acid Calcium Phosphorus Magnesium Direct Bilirubin AST ALT Alkaline Phosphatase Lactate Dehydrogenase Troponin T C-Reactive Protein Total Protein Albumin Prealbumin Triglycerides Cholesterol LDL Cholesterol Direct HDL Cholesterol Urine pH Urine WBC (Auto) Urine Creatinine Urine Total Protein Fluid Total Protein Vancomycin Trough Rheumatoid Factor Complement C4 Miscellaneous Test Crossmatch 12/20/16 12/20/16 12/20/16 00:03 06:17 07:07 WBC RBC Hgb Hct MCV MCH MCHC RDW Plt Count Lymph % (Auto) [place] % (Auto) Lymph # [place] # Baso # Seg Neutrophils % Seg Neuts % (Manual) Lymphocytes % (Manual) Monocytes % (Manual) Eosinophils % (Manual) Basophils % (Manual) Nucleated RBC % Seg Neutrophils # Seg Neutrophils # Man Lymphocytes # (Manual) Monocytes # (Manual) Eosinophils # (Manual) Basophils # (Manual) PT INR Fibrinogen dRVVT Confirm Interp Factor V Activity POC ABG pH POC ABG pCO2 POC ABG pO2 ABG pO2 ABG HCO3 ABG Base Excess ABG Hemoglobin Oxyhemoglobin Sodium Potassium Chloride 97.1 L Carbon Dioxide 20 L BUN 97 H Creatinine 1.8 H Glucose 153 H POC Glucose 152 H 175 H Lactic Acid Calcium Phosphorus Magnesium Direct Bilirubin AST ALT Alkaline Phosphatase Lactate Dehydrogenase Troponin T C-Reactive Protein Total Protein Albumin Prealbumin Triglycerides Cholesterol LDL Cholesterol Direct HDL Cholesterol Urine pH Urine WBC (Auto) Urine Creatinine Urine Total Protein Fluid Total Protein Vancomycin Trough Rheumatoid Factor Complement C4 Miscellaneous Test Crossmatch 12/20/16 12/20/16 12/20/16 12:00 17:42 23:53 WBC RBC Hgb Hct MCV MCH MCHC RDW Plt Count Lymph % (Auto) [place] % (Auto) Lymph # [place] # Baso # Seg Neutrophils % Seg Neuts % (Manual) Lymphocytes % (Manual) Monocytes % (Manual) Eosinophils % (Manual) Basophils % (Manual) Nucleated RBC % Seg Neutrophils # Seg Neutrophils # Man Lymphocytes # (Manual) Monocytes # (Manual) Eosinophils # (Manual) Basophils # (Manual) PT INR Fibrinogen dRVVT Confirm Interp Factor V Activity POC ABG pH POC ABG pCO2 POC ABG pO2 ABG pO2 ABG HCO3 ABG Base Excess ABG Hemoglobin Oxyhemoglobin Sodium Potassium Chloride Carbon Dioxide BUN Creatinine Glucose POC Glucose 141 H 156 H 132 H Lactic Acid Calcium Phosphorus Magnesium Direct Bilirubin AST ALT Alkaline Phosphatase Lactate Dehydrogenase Troponin T C-Reactive Protein Total Protein Albumin Prealbumin Triglycerides Cholesterol LDL Cholesterol Direct HDL Cholesterol Urine pH Urine WBC (Auto) Urine Creatinine Urine Total Protein Fluid Total Protein Vancomycin Trough Rheumatoid Factor Complement C4 Miscellaneous Test Crossmatch 12/21/16 12/21/16 12/21/16 05:49 08:50 12:19 WBC RBC Hgb Hct MCV MCH MCHC RDW Plt Count Lymph % (Auto) [place] % (Auto) Lymph # [place] # Baso # Seg Neutrophils % Seg Neuts % (Manual) Lymphocytes % (Manual) Monocytes % (Manual) Eosinophils % (Manual) Basophils % (Manual) Nucleated RBC % Seg Neutrophils # Seg Neutrophils # Man Lymphocytes # (Manual) Monocytes # (Manual) Eosinophils # (Manual) Basophils # (Manual) PT INR Fibrinogen dRVVT Confirm Interp Factor V Activity POC ABG pH POC ABG pCO2 POC ABG pO2 ABG pO2 ABG HCO3 ABG Base Excess ABG Hemoglobin Oxyhemoglobin Sodium Potassium 5.2 H D Chloride Carbon Dioxide BUN 63 H Creatinine Glucose 122 H POC Glucose 132 H 136 H Lactic Acid Calcium 8.3 L Phosphorus Magnesium Direct Bilirubin AST ALT Alkaline Phosphatase Lactate Dehydrogenase Troponin T C-Reactive Protein Total Protein Albumin Prealbumin Triglycerides Cholesterol LDL Cholesterol Direct HDL Cholesterol Urine pH Urine WBC (Auto) Urine Creatinine Urine Total Protein Fluid Total Protein Vancomycin Trough Rheumatoid Factor Complement C4 Miscellaneous Test Crossmatch 12/21/16 12/21/16 12/22/16 17:22 23:58 05:49 WBC RBC Hgb Hct MCV MCH MCHC RDW Plt Count Lymph % (Auto) [place] % (Auto) Lymph # [place] # Baso # Seg Neutrophils % Seg Neuts % (Manual) Lymphocytes % (Manual) Monocytes % (Manual) Eosinophils % (Manual) Basophils % (Manual) Nucleated RBC % Seg Neutrophils # Seg Neutrophils # Man Lymphocytes # (Manual) Monocytes # (Manual) Eosinophils # (Manual) Basophils # (Manual) PT INR Fibrinogen dRVVT Confirm Interp Factor V Activity POC ABG pH POC ABG pCO2 POC ABG pO2 ABG pO2 ABG HCO3 ABG Base Excess ABG Hemoglobin Oxyhemoglobin Sodium Potassium Chloride Carbon Dioxide BUN Creatinine Glucose POC Glucose 135 H 149 H 140 H Lactic Acid Calcium Phosphorus Magnesium Direct Bilirubin AST ALT Alkaline Phosphatase Lactate Dehydrogenase Troponin T C-Reactive Protein Total Protein Albumin Prealbumin Triglycerides Cholesterol LDL Cholesterol Direct HDL Cholesterol Urine pH Urine WBC (Auto) Urine Creatinine Urine Total Protein Fluid Total Protein Vancomycin Trough Rheumatoid Factor Complement C4 Miscellaneous Test Crossmatch 12/22/16 12/22/16 12/22/16 06:10 11:17 17:31 WBC RBC Hgb Hct MCV MCH MCHC RDW Plt Count Lymph % (Auto) [place] % (Auto) Lymph # [place] # Baso # Seg Neutrophils % Seg Neuts % (Manual) Lymphocytes % (Manual) Monocytes % (Manual) Eosinophils % (Manual) Basophils % (Manual) Nucleated RBC % Seg Neutrophils # Seg Neutrophils # Man Lymphocytes # (Manual) Monocytes # (Manual) Eosinophils # (Manual) Basophils # (Manual) PT INR Fibrinogen dRVVT Confirm Interp Factor V Activity POC ABG pH POC ABG pCO2 POC ABG pO2 ABG pO2 ABG HCO3 ABG Base Excess ABG Hemoglobin Oxyhemoglobin Sodium Potassium Chloride Carbon Dioxide BUN 76 H Creatinine 1.5 H Glucose 241 H POC Glucose 193 H 148 H Lactic Acid Calcium Phosphorus Magnesium Direct Bilirubin AST ALT Alkaline Phosphatase Lactate Dehydrogenase Troponin T C-Reactive Protein Total Protein Albumin Prealbumin Triglycerides Cholesterol LDL Cholesterol Direct HDL Cholesterol Urine pH Urine WBC (Auto) Urine Creatinine Urine Total Protein Fluid Total Protein Vancomycin Trough Rheumatoid Factor Complement C4 Miscellaneous Test Crossmatch 12/22/16 12/23/16 12/23/16 23:58 05:00 05:26 WBC RBC Hgb Hct MCV MCH MCHC RDW Plt Count Lymph % (Auto) [place] % (Auto) Lymph # [place] # Baso # Seg Neutrophils % Seg Neuts % (Manual) Lymphocytes % (Manual) Monocytes % (Manual) Eosinophils % (Manual) Basophils % (Manual) Nucleated RBC % Seg Neutrophils # Seg Neutrophils # Man Lymphocytes # (Manual) Monocytes # (Manual) Eosinophils # (Manual) Basophils # (Manual) PT INR Fibrinogen dRVVT Confirm Interp Factor V Activity POC ABG pH POC ABG pCO2 POC ABG pO2 ABG pO2 ABG HCO3 ABG Base Excess ABG Hemoglobin Oxyhemoglobin Sodium Potassium Chloride Carbon Dioxide BUN 49 H Creatinine Glucose 143 H POC Glucose 165 H 154 H Lactic Acid Calcium 8.2 L Phosphorus Magnesium 1.60 L Direct Bilirubin AST ALT Alkaline Phosphatase Lactate Dehydrogenase Troponin T C-Reactive Protein Total Protein Albumin Prealbumin Triglycerides Cholesterol LDL Cholesterol Direct HDL Cholesterol Urine pH Urine WBC (Auto) Urine Creatinine Urine Total Protein Fluid Total Protein Vancomycin Trough Rheumatoid Factor Complement C4 Miscellaneous Test Crossmatch 12/23/16 12/23/16 12/24/16 12:35 17:01 00:01 WBC RBC Hgb Hct MCV MCH MCHC RDW Plt Count Lymph % (Auto) [place] % (Auto) Lymph # [place] # Baso # Seg Neutrophils % Seg Neuts % (Manual) Lymphocytes % (Manual) Monocytes % (Manual) Eosinophils % (Manual) Basophils % (Manual) Nucleated RBC % Seg Neutrophils # Seg Neutrophils # Man Lymphocytes # (Manual) Monocytes # (Manual) Eosinophils # (Manual) Basophils # (Manual) PT INR Fibrinogen dRVVT Confirm Interp Factor V Activity POC ABG pH POC ABG pCO2 POC ABG pO2 ABG pO2 ABG HCO3 ABG Base Excess ABG Hemoglobin Oxyhemoglobin Sodium Potassium Chloride Carbon Dioxide BUN Creatinine Glucose POC Glucose 164 H 149 H 135 H Lactic Acid Calcium Phosphorus Magnesium Direct Bilirubin AST ALT Alkaline Phosphatase Lactate Dehydrogenase Troponin T C-Reactive Protein Total Protein Albumin Prealbumin Triglycerides Cholesterol LDL Cholesterol Direct HDL Cholesterol Urine pH Urine WBC (Auto) Urine Creatinine Urine Total Protein Fluid Total Protein Vancomycin Trough Rheumatoid Factor Complement C4 Miscellaneous Test Crossmatch 12/24/16 12/24/16 12/24/16 05:41 07:01 11:38 WBC RBC Hgb Hct MCV MCH MCHC RDW Plt Count Lymph % (Auto) [place] % (Auto) Lymph # [place] # Baso # Seg Neutrophils % Seg Neuts % (Manual) Lymphocytes % (Manual) Monocytes % (Manual) Eosinophils % (Manual) Basophils % (Manual) Nucleated RBC % Seg Neutrophils # Seg Neutrophils # Man Lymphocytes # (Manual) Monocytes # (Manual) Eosinophils # (Manual) Basophils # (Manual) PT INR Fibrinogen dRVVT Confirm Interp Factor V Activity POC ABG pH POC ABG pCO2 POC ABG pO2 ABG pO2 ABG HCO3 ABG Base Excess ABG Hemoglobin Oxyhemoglobin Sodium Potassium Chloride Carbon Dioxide BUN 72 H Creatinine 1.3 H Glucose 130 H POC Glucose 132 H 156 H Lactic Acid Calcium 8.2 L Phosphorus Magnesium Direct Bilirubin AST ALT Alkaline Phosphatase Lactate Dehydrogenase Troponin T C-Reactive Protein Total Protein Albumin Prealbumin Triglycerides Cholesterol LDL Cholesterol Direct HDL Cholesterol Urine pH Urine WBC (Auto) Urine Creatinine Urine Total Protein Fluid Total Protein Vancomycin Trough Rheumatoid Factor Complement C4 Miscellaneous Test Crossmatch 12/24/16 12/25/16 12/25/16 17:53 00:23 05:45 WBC RBC Hgb Hct MCV MCH MCHC RDW Plt Count Lymph % (Auto) [place] % (Auto) Lymph # [place] # Baso # Seg Neutrophils % Seg Neuts % (Manual) Lymphocytes % (Manual) Monocytes % (Manual) Eosinophils % (Manual) Basophils % (Manual) Nucleated RBC % Seg Neutrophils # Seg Neutrophils # Man Lymphocytes # (Manual) Monocytes # (Manual) Eosinophils # (Manual) Basophils # (Manual) PT INR Fibrinogen dRVVT Confirm Interp Factor V Activity POC ABG pH POC ABG pCO2 POC ABG pO2 ABG pO2 ABG HCO3 ABG Base Excess ABG Hemoglobin Oxyhemoglobin Sodium 146 H Potassium Chloride Carbon Dioxide BUN 51 H Creatinine Glucose 109 H POC Glucose 169 H 117 H Lactic Acid Calcium Phosphorus Magnesium Direct Bilirubin AST ALT Alkaline Phosphatase Lactate Dehydrogenase Troponin T C-Reactive Protein Total Protein Albumin Prealbumin Triglycerides Cholesterol LDL Cholesterol Direct HDL Cholesterol Urine pH Urine WBC (Auto) Urine Creatinine Urine Total Protein Fluid Total Protein Vancomycin Trough Rheumatoid Factor Complement C4 Miscellaneous Test Crossmatch 12/25/16 12/25/16 12/25/16 06:43 11:29 17:14 WBC RBC Hgb Hct MCV MCH MCHC RDW Plt Count Lymph % (Auto) [place] % (Auto) Lymph # [place] # Baso # Seg Neutrophils % Seg Neuts % (Manual) Lymphocytes % (Manual) Monocytes % (Manual) Eosinophils % (Manual) Basophils % (Manual) Nucleated RBC % Seg Neutrophils # Seg Neutrophils # Man Lymphocytes # (Manual) Monocytes # (Manual) Eosinophils # (Manual) Basophils # (Manual) PT INR Fibrinogen dRVVT Confirm Interp Factor V Activity POC ABG pH POC ABG pCO2 POC ABG pO2 ABG pO2 ABG HCO3 ABG Base Excess ABG Hemoglobin Oxyhemoglobin Sodium Potassium Chloride Carbon Dioxide BUN Creatinine Glucose POC Glucose 117 H 128 H 120 H Lactic Acid Calcium Phosphorus Magnesium Direct Bilirubin AST ALT Alkaline Phosphatase Lactate Dehydrogenase Troponin T C-Reactive Protein Total Protein Albumin Prealbumin Triglycerides Cholesterol LDL Cholesterol Direct HDL Cholesterol Urine pH Urine WBC (Auto) Urine Creatinine Urine Total Protein Fluid Total Protein Vancomycin Trough Rheumatoid Factor Complement C4 Miscellaneous Test Crossmatch 12/25/16 12/26/16 12/26/16 23:54 05:40 05:50 WBC 16.2 H RBC 2.32 L Hgb 6.2 L Hct 20.1 L MCV MCH 27 L MCHC RDW 18.6 H Plt Count Lymph % (Auto) [place] % (Auto) Lymph # [place]igg # Baso # Seg Neutrophils % Seg Neuts % (Manual) Lymphocytes % (Manual) Monocytes % (Manual) Eosinophils % (Manual) Basophils % (Manual) Nucleated RBC % Seg Neutrophils # Seg Neutrophils # Man Lymphocytes # (Manual) Monocytes # (Manual) Eosinophils # (Manual) Basophils # (Manual) PT INR Fibrinogen dRVVT Confirm Interp Factor V Activity POC ABG pH POC ABG pCO2 POC ABG pO2 ABG pO2 ABG HCO3 ABG Base Excess ABG Hemoglobin Oxyhemoglobin Sodium Potassium Chloride Carbon Dioxide BUN Creatinine Glucose POC Glucose 126 H 132 H Lactic Acid Calcium Phosphorus Magnesium Direct Bilirubin AST ALT Alkaline Phosphatase Lactate Dehydrogenase Troponin T C-Reactive Protein Total Protein Albumin Prealbumin Triglycerides Cholesterol LDL Cholesterol Direct HDL Cholesterol Urine pH Urine WBC (Auto) Urine Creatinine Urine Total Protein Fluid Total Protein Vancomycin Trough Rheumatoid Factor Complement C4 Miscellaneous Test Crossmatch 12/26/16 12/26/16 12/26/16 05:50 12:17 12:33 WBC RBC Hgb Hct MCV MCH MCHC RDW Plt Count Lymph % (Auto) [place] % (Auto) Lymph # [place]igg # Baso # Seg Neutrophils % Seg Neuts % (Manual) Lymphocytes % (Manual) Monocytes % (Manual) Eosinophils % (Manual) Basophils % (Manual) Nucleated RBC % Seg Neutrophils # Seg Neutrophils # Man Lymphocytes # (Manual) Monocytes # (Manual) Eosinophils # (Manual) Basophils # (Manual) PT INR Fibrinogen dRVVT Confirm Interp Factor V Activity POC ABG pH POC ABG pCO2 POC ABG pO2 ABG pO2 ABG HCO3 ABG Base Excess ABG Hemoglobin Oxyhemoglobin Sodium Potassium Chloride Carbon Dioxide BUN 73 H Creatinine 1.3 H Glucose 113 H POC Glucose 117 H Lactic Acid Calcium Phosphorus Magnesium Direct Bilirubin AST ALT Alkaline Phosphatase Lactate Dehydrogenase Troponin T C-Reactive Protein Total Protein Albumin Prealbumin Triglycerides Cholesterol LDL Cholesterol Direct HDL Cholesterol Urine pH Urine WBC (Auto) Urine Creatinine Urine Total Protein Fluid Total Protein Vancomycin Trough Rheumatoid Factor Complement C4 Miscellaneous Test Crossmatch See Detail 12/26/16 12/26/16 12/27/16 20:00 23:21 05:00 WBC RBC Hgb 8.4 L Hct 26.3 L D MCV MCH MCHC RDW Plt Count Lymph % (Auto) Trigg % (Auto) Lymph # Trigg # Baso # Seg Neutrophils % Seg Neuts % (Manual) Lymphocytes % (Manual) Monocytes % (Manual) Eosinophils % (Manual) Basophils % (Manual) Nucleated RBC % Seg Neutrophils # Seg Neutrophils # Man Lymphocytes # (Manual) Monocytes # (Manual) Eosinophils # (Manual) Basophils # (Manual) PT INR Fibrinogen dRVVT Confirm Interp Factor V Activity POC ABG pH POC ABG pCO2 POC ABG pO2 ABG pO2 ABG HCO3 ABG Base Excess ABG Hemoglobin Oxyhemoglobin Sodium Potassium Chloride Carbon Dioxide BUN 85 H Creatinine 1.6 H Glucose 118 H POC Glucose 124 H Lactic Acid Calcium Phosphorus 4.80 H Magnesium Direct Bilirubin AST ALT Alkaline Phosphatase Lactate Dehydrogenase Troponin T C-Reactive Protein Total Protein Albumin Prealbumin Triglycerides Cholesterol LDL Cholesterol Direct HDL Cholesterol Urine pH Urine WBC (Auto) Urine Creatinine Urine Total Protein Fluid Total Protein Vancomycin Trough Rheumatoid Factor Complement C4 Miscellaneous Test Crossmatch 12/27/16 12/27/16 12/27/16 05:00 05:35 12:24 WBC RBC Hgb 7.6 L Hct 22.8 L MCV MCH MCHC RDW Plt Count Lymph % (Auto) [place] % (Auto) Lymph # Trigg # Baso # Seg Neutrophils % Seg Neuts % (Manual) Lymphocytes % (Manual) Monocytes % (Manual) Eosinophils % (Manual) Basophils % (Manual) Nucleated RBC % Seg Neutrophils # Seg Neutrophils # Man Lymphocytes # (Manual) Monocytes # (Manual) Eosinophils # (Manual) Basophils # (Manual) PT INR Fibrinogen dRVVT Confirm Interp Factor V Activity POC ABG pH POC ABG pCO2 POC ABG pO2 ABG pO2 ABG HCO3 ABG Base Excess ABG Hemoglobin Oxyhemoglobin Sodium Potassium Chloride Carbon Dioxide BUN Creatinine Glucose POC Glucose 115 H 131 H Lactic Acid Calcium Phosphorus Magnesium Direct Bilirubin AST ALT Alkaline Phosphatase Lactate Dehydrogenase Troponin T C-Reactive Protein Total Protein Albumin Prealbumin Triglycerides Cholesterol LDL Cholesterol Direct HDL Cholesterol Urine pH Urine WBC (Auto) Urine Creatinine Urine Total Protein Fluid Total Protein Vancomycin Trough Rheumatoid Factor Complement C4 Miscellaneous Test Crossmatch 12/27/16 12/28/16 12/28/16 17:16 00:18 04:00 WBC RBC Hgb Hct MCV MCH MCHC RDW Plt Count Lymph % (Auto) [place] % (Auto) Lymph # [place] # Baso # Seg Neutrophils % Seg Neuts % (Manual) Lymphocytes % (Manual) Monocytes % (Manual) Eosinophils % (Manual) Basophils % (Manual) Nucleated RBC % Seg Neutrophils # Seg Neutrophils # Man Lymphocytes # (Manual) Monocytes # (Manual) Eosinophils # (Manual) Basophils # (Manual) PT INR Fibrinogen dRVVT Confirm Interp Factor V Activity POC ABG pH POC ABG pCO2 POC ABG pO2 ABG pO2 ABG HCO3 ABG Base Excess ABG Hemoglobin Oxyhemoglobin Sodium Potassium 3.5 L Chloride Carbon Dioxide BUN 57 H Creatinine Glucose 118 H POC Glucose 136 H 120 H Lactic Acid Calcium 8.3 L Phosphorus Magnesium Direct Bilirubin AST ALT Alkaline Phosphatase Lactate Dehydrogenase Troponin T C-Reactive Protein Total Protein Albumin Prealbumin Triglycerides Cholesterol LDL Cholesterol Direct HDL Cholesterol Urine pH Urine WBC (Auto) Urine Creatinine Urine Total Protein Fluid Total Protein Vancomycin Trough Rheumatoid Factor Complement C4 Miscellaneous Test Crossmatch 12/28/16 12/28/16 12/28/16 04:00 05:11 08:30 WBC 17.0 H RBC 2.58 L Hgb 7.1 L Hct 22.0 L MCV MCH MCHC RDW 17.6 H Plt Count Lymph % (Auto) 12.2 L [place] % (Auto) Lymph # Trigg # 1.1 H Baso # Seg Neutrophils % 80.5 H Seg Neuts % (Manual) Lymphocytes % (Manual) Monocytes % (Manual) Eosinophils % (Manual) Basophils % (Manual) Nucleated RBC % Seg Neutrophils # 13.7 H Seg Neutrophils # Man Lymphocytes # (Manual) Monocytes # (Manual) Eosinophils # (Manual) Basophils # (Manual) PT 16.1 H INR 1.23 H Fibrinogen dRVVT Confirm Interp Factor V Activity POC ABG pH POC ABG pCO2 POC ABG pO2 ABG pO2 ABG HCO3 ABG Base Excess ABG Hemoglobin Oxyhemoglobin Sodium Potassium Chloride Carbon Dioxide BUN Creatinine Glucose POC Glucose 122 H Lactic Acid Calcium Phosphorus Magnesium Direct Bilirubin AST ALT Alkaline Phosphatase Lactate Dehydrogenase Troponin T C-Reactive Protein Total Protein Albumin Prealbumin Triglycerides Cholesterol LDL Cholesterol Direct HDL Cholesterol Urine pH Urine WBC (Auto) Urine Creatinine Urine Total Protein Fluid Total Protein Vancomycin Trough Rheumatoid Factor Complement C4 Miscellaneous Test Crossmatch 12/28/16 12/28/16 12/28/16 12:27 16:32 23:46 WBC RBC Hgb Hct MCV MCH MCHC RDW Plt Count Lymph % (Auto) [place] % (Auto) Lymph # [place] # Baso # Seg Neutrophils % Seg Neuts % (Manual) Lymphocytes % (Manual) Monocytes % (Manual) Eosinophils % (Manual) Basophils % (Manual) Nucleated RBC % Seg Neutrophils # Seg Neutrophils # Man Lymphocytes # (Manual) Monocytes # (Manual) Eosinophils # (Manual) Basophils # (Manual) PT INR Fibrinogen dRVVT Confirm Interp Factor V Activity POC ABG pH POC ABG pCO2 POC ABG pO2 ABG pO2 ABG HCO3 ABG Base Excess ABG Hemoglobin Oxyhemoglobin Sodium Potassium Chloride Carbon Dioxide BUN Creatinine Glucose POC Glucose 127 H 117 H 108 H Lactic Acid Calcium Phosphorus Magnesium Direct Bilirubin AST ALT Alkaline Phosphatase Lactate Dehydrogenase Troponin T C-Reactive Protein Total Protein Albumin Prealbumin Triglycerides Cholesterol LDL Cholesterol Direct HDL Cholesterol Urine pH Urine WBC (Auto) Urine Creatinine Urine Total Protein Fluid Total Protein Vancomycin Trough Rheumatoid Factor Complement C4 Miscellaneous Test Crossmatch 12/29/16 12/29/16 12/29/16 05:15 05:15 05:32 WBC RBC Hgb Hct MCV MCH MCHC RDW Plt Count Lymph % (Auto) [place] % (Auto) Lymph # [place] # Baso # Seg Neutrophils % Seg Neuts % (Manual) Lymphocytes % (Manual) Monocytes % (Manual) Eosinophils % (Manual) Basophils % (Manual) Nucleated RBC % Seg Neutrophils # Seg Neutrophils # Man Lymphocytes # (Manual) Monocytes # (Manual) Eosinophils # (Manual) Basophils # (Manual) PT INR Fibrinogen dRVVT Confirm Interp Factor V Activity POC ABG pH POC ABG pCO2 POC ABG pO2 ABG pO2 ABG HCO3 ABG Base Excess ABG Hemoglobin Oxyhemoglobin Sodium Potassium Chloride Carbon Dioxide BUN 74 H Creatinine 1.6 H Glucose 111 H POC Glucose 123 H Lactic Acid Calcium Phosphorus Magnesium Direct Bilirubin AST ALT Alkaline Phosphatase Lactate Dehydrogenase Troponin T C-Reactive Protein Total Protein Albumin Prealbumin 0.110 L Triglycerides Cholesterol LDL Cholesterol Direct HDL Cholesterol Urine pH Urine WBC (Auto) Urine Creatinine Urine Total Protein Fluid Total Protein Vancomycin Trough Rheumatoid Factor Complement C4 Miscellaneous Test Crossmatch 12/29/16 12/29/16 12/29/16 11:43 13:45 14:00 WBC 13.8 H RBC 2.26 L Hgb 6.3 L Hct 20.4 L MCV MCH MCHC RDW 18.3 H Plt Count Lymph % (Auto) [place] % (Auto) Lymph # Trigg # 0.9 H Baso # Seg Neutrophils % 78.6 H Seg Neuts % (Manual) Lymphocytes % (Manual) Monocytes % (Manual) Eosinophils % (Manual) Basophils % (Manual) Nucleated RBC % Seg Neutrophils # 10.8 H Seg Neutrophils # Man Lymphocytes # (Manual) Monocytes # (Manual) Eosinophils # (Manual) Basophils # (Manual) PT INR Fibrinogen dRVVT Confirm Interp Factor V Activity POC ABG pH POC ABG pCO2 POC ABG pO2 ABG pO2 ABG HCO3 ABG Base Excess ABG Hemoglobin Oxyhemoglobin Sodium Potassium Chloride Carbon Dioxide BUN Creatinine Glucose POC Glucose 133 H Lactic Acid Calcium Phosphorus Magnesium Direct Bilirubin AST ALT Alkaline Phosphatase Lactate Dehydrogenase Troponin T C-Reactive Protein Total Protein Albumin Prealbumin Triglycerides Cholesterol LDL Cholesterol Direct HDL Cholesterol Urine pH Urine WBC (Auto) Urine Creatinine Urine Total Protein Fluid Total Protein Vancomycin Trough Rheumatoid Factor Complement C4 Miscellaneous Test Crossmatch See Detail 12/29/16 12/29/16 12/29/16 17:03 23:15 23:22 WBC RBC Hgb 7.3 L Hct 22.3 L MCV MCH MCHC RDW Plt Count Lymph % (Auto) [place] % (Auto) Lymph # [place] # Baso # Seg Neutrophils % Seg Neuts % (Manual) Lymphocytes % (Manual) Monocytes % (Manual) Eosinophils % (Manual) Basophils % (Manual) Nucleated RBC % Seg Neutrophils # Seg Neutrophils # Man Lymphocytes # (Manual) Monocytes # (Manual) Eosinophils # (Manual) Basophils # (Manual) PT INR Fibrinogen dRVVT Confirm Interp Factor V Activity POC ABG pH POC ABG pCO2 POC ABG pO2 ABG pO2 ABG HCO3 ABG Base Excess ABG Hemoglobin Oxyhemoglobin Sodium Potassium Chloride Carbon Dioxide BUN Creatinine Glucose POC Glucose 139 H 120 H Lactic Acid Calcium Phosphorus Magnesium Direct Bilirubin AST ALT Alkaline Phosphatase Lactate Dehydrogenase Troponin T C-Reactive Protein Total Protein Albumin Prealbumin Triglycerides Cholesterol LDL Cholesterol Direct HDL Cholesterol Urine pH Urine WBC (Auto) Urine Creatinine Urine Total Protein Fluid Total Protein Vancomycin Trough Rheumatoid Factor Complement C4 Miscellaneous Test Crossmatch 12/30/16 12/30/16 12/30/16 04:20 04:20 05:43 WBC 15.6 H RBC 2.81 L Hgb 8.0 L Hct 24.0 L MCV MCH MCHC RDW 16.9 H Plt Count Lymph % (Auto) [place] % (Auto) Lymph # Trigg # 1.0 H Baso # Seg Neutrophils % 76.2 H Seg Neuts % (Manual) Lymphocytes % (Manual) Monocytes % (Manual) Eosinophils % (Manual) Basophils % (Manual) Nucleated RBC % Seg Neutrophils # 11.9 H Seg Neutrophils # Man Lymphocytes # (Manual) Monocytes # (Manual) Eosinophils # (Manual) Basophils # (Manual) PT INR Fibrinogen dRVVT Confirm Interp Factor V Activity POC ABG pH POC ABG pCO2 POC ABG pO2 ABG pO2 ABG HCO3 ABG Base Excess ABG Hemoglobin Oxyhemoglobin Sodium Potassium Chloride Carbon Dioxide BUN 87 H Creatinine 1.8 H Glucose 119 H POC Glucose 115 H Lactic Acid Calcium Phosphorus Magnesium Direct Bilirubin AST ALT Alkaline Phosphatase Lactate Dehydrogenase Troponin T C-Reactive Protein Total Protein Albumin Prealbumin Triglycerides Cholesterol LDL Cholesterol Direct HDL Cholesterol Urine pH Urine WBC (Auto) Urine Creatinine Urine Total Protein Fluid Total Protein Vancomycin Trough Rheumatoid Factor Complement C4 Miscellaneous Test Crossmatch 12/30/16 12/30/16 12/31/16 17:27 23:21 04:00 WBC RBC Hgb Hct MCV MCH MCHC RDW Plt Count Lymph % (Auto) [place] % (Auto) Lymph # [place] # Baso # Seg Neutrophils % Seg Neuts % (Manual) Lymphocytes % (Manual) Monocytes % (Manual) Eosinophils % (Manual) Basophils % (Manual) Nucleated RBC % Seg Neutrophils # Seg Neutrophils # Man Lymphocytes # (Manual) Monocytes # (Manual) Eosinophils # (Manual) Basophils # (Manual) PT INR Fibrinogen dRVVT Confirm Interp Factor V Activity POC ABG pH POC ABG pCO2 POC ABG pO2 ABG pO2 ABG HCO3 ABG Base Excess ABG Hemoglobin Oxyhemoglobin Sodium Potassium Chloride Carbon Dioxide BUN 59 H Creatinine Glucose 298 H POC Glucose 144 H 125 H Lactic Acid Calcium Phosphorus Magnesium Direct Bilirubin AST ALT Alkaline Phosphatase Lactate Dehydrogenase Troponin T C-Reactive Protein Total Protein Albumin Prealbumin Triglycerides Cholesterol LDL Cholesterol Direct HDL Cholesterol Urine pH Urine WBC (Auto) Urine Creatinine Urine Total Protein Fluid Total Protein Vancomycin Trough Rheumatoid Factor Complement C4 Miscellaneous Test Crossmatch 12/31/16 12/31/16 12/31/16 05:11 12:18 18:17 WBC RBC Hgb Hct MCV MCH MCHC RDW Plt Count Lymph % (Auto) [place] % (Auto) Lymph # [place] # Baso # Seg Neutrophils % Seg Neuts % (Manual) Lymphocytes % (Manual) Monocytes % (Manual) Eosinophils % (Manual) Basophils % (Manual) Nucleated RBC % Seg Neutrophils # Seg Neutrophils # Man Lymphocytes # (Manual) Monocytes # (Manual) Eosinophils # (Manual) Basophils # (Manual) PT INR Fibrinogen dRVVT Confirm Interp Factor V Activity POC ABG pH POC ABG pCO2 POC ABG pO2 ABG pO2 ABG HCO3 ABG Base Excess ABG Hemoglobin Oxyhemoglobin Sodium Potassium Chloride Carbon Dioxide BUN Creatinine Glucose POC Glucose 167 H 125 H 133 H Lactic Acid Calcium Phosphorus Magnesium Direct Bilirubin AST ALT Alkaline Phosphatase Lactate Dehydrogenase Troponin T C-Reactive Protein Total Protein Albumin Prealbumin Triglycerides Cholesterol LDL Cholesterol Direct HDL Cholesterol Urine pH Urine WBC (Auto) Urine Creatinine Urine Total Protein Fluid Total Protein Vancomycin Trough Rheumatoid Factor Complement C4 Miscellaneous Test Crossmatch 12/31/16 01/01/17 01/01/17 23:55 05:00 05:12 WBC RBC Hgb Hct MCV MCH MCHC RDW Plt Count Lymph % (Auto) [place] % (Auto) Lymph # [place] # Baso # Seg Neutrophils % Seg Neuts % (Manual) Lymphocytes % (Manual) Monocytes % (Manual) Eosinophils % (Manual) Basophils % (Manual) Nucleated RBC % Seg Neutrophils # Seg Neutrophils # Man Lymphocytes # (Manual) Monocytes # (Manual) Eosinophils # (Manual) Basophils # (Manual) PT INR Fibrinogen dRVVT Confirm Interp Factor V Activity POC ABG pH POC ABG pCO2 POC ABG pO2 ABG pO2 ABG HCO3 ABG Base Excess ABG Hemoglobin Oxyhemoglobin Sodium Potassium Chloride Carbon Dioxide BUN 76 H Creatinine 1.5 H Glucose 109 H POC Glucose 129 H 129 H Lactic Acid Calcium Phosphorus Magnesium Direct Bilirubin AST ALT Alkaline Phosphatase 536 H Lactate Dehydrogenase Troponin T C-Reactive Protein Total Protein Albumin 1.5 L Prealbumin Triglycerides Cholesterol LDL Cholesterol Direct HDL Cholesterol Urine pH Urine WBC (Auto) Urine Creatinine Urine Total Protein Fluid Total Protein Vancomycin Trough Rheumatoid Factor Complement C4 Miscellaneous Test Crossmatch 01/01/17 01/01/17 01/01/17 12:25 17:01 23:32 WBC RBC Hgb Hct MCV MCH MCHC RDW Plt Count Lymph % (Auto) [place] % (Auto) Lymph # [place] # Baso # Seg Neutrophils % Seg Neuts % (Manual) Lymphocytes % (Manual) Monocytes % (Manual) Eosinophils % (Manual) Basophils % (Manual) Nucleated RBC % Seg Neutrophils # Seg Neutrophils # Man Lymphocytes # (Manual) Monocytes # (Manual) Eosinophils # (Manual) Basophils # (Manual) PT INR Fibrinogen dRVVT Confirm Interp Factor V Activity POC ABG pH POC ABG pCO2 POC ABG pO2 ABG pO2 ABG HCO3 ABG Base Excess ABG Hemoglobin Oxyhemoglobin Sodium Potassium Chloride Carbon Dioxide BUN Creatinine Glucose POC Glucose 140 H 142 H 112 H Lactic Acid Calcium Phosphorus Magnesium Direct Bilirubin AST ALT Alkaline Phosphatase Lactate Dehydrogenase Troponin T C-Reactive Protein Total Protein Albumin Prealbumin Triglycerides Cholesterol LDL Cholesterol Direct HDL Cholesterol Urine pH Urine WBC (Auto) Urine Creatinine Urine Total Protein Fluid Total Protein Vancomycin Trough Rheumatoid Factor Complement C4 Miscellaneous Test Crossmatch 01/02/17 01/02/17 01/02/17 04:56 06:00 11:37 WBC RBC Hgb Hct MCV MCH MCHC RDW Plt Count Lymph % (Auto) [place] % (Auto) Lymph # [place] # Baso # Seg Neutrophils % Seg Neuts % (Manual) Lymphocytes % (Manual) Monocytes % (Manual) Eosinophils % (Manual) Basophils % (Manual) Nucleated RBC % Seg Neutrophils # Seg Neutrophils # Man Lymphocytes # (Manual) Monocytes # (Manual) Eosinophils # (Manual) Basophils # (Manual) PT INR Fibrinogen dRVVT Confirm Interp Factor V Activity POC ABG pH POC ABG pCO2 POC ABG pO2 ABG pO2 ABG HCO3 ABG Base Excess ABG Hemoglobin Oxyhemoglobin Sodium Potassium Chloride Carbon Dioxide BUN 88 H Creatinine 1.7 H Glucose 113 H POC Glucose 136 H 200 H Lactic Acid Calcium Phosphorus Magnesium Direct Bilirubin AST ALT Alkaline Phosphatase Lactate Dehydrogenase Troponin T C-Reactive Protein Total Protein Albumin Prealbumin Triglycerides Cholesterol LDL Cholesterol Direct HDL Cholesterol Urine pH Urine WBC (Auto) Urine Creatinine Urine Total Protein Fluid Total Protein Vancomycin Trough Rheumatoid Factor Complement C4 Miscellaneous Test Crossmatch 01/02/17 01/02/17 01/03/17 17:42 22:52 04:54 WBC RBC Hgb Hct MCV MCH MCHC RDW Plt Count Lymph % (Auto) [place] % (Auto) Lymph # [place] # Baso # Seg Neutrophils % Seg Neuts % (Manual) Lymphocytes % (Manual) Monocytes % (Manual) Eosinophils % (Manual) Basophils % (Manual) Nucleated RBC % Seg Neutrophils # Seg Neutrophils # Man Lymphocytes # (Manual) Monocytes # (Manual) Eosinophils # (Manual) Basophils # (Manual) PT INR Fibrinogen dRVVT Confirm Interp Factor V Activity POC ABG pH POC ABG pCO2 POC ABG pO2 ABG pO2 ABG HCO3 ABG Base Excess ABG Hemoglobin Oxyhemoglobin Sodium Potassium Chloride Carbon Dioxide BUN Creatinine Glucose POC Glucose 112 H 133 H 111 H Lactic Acid Calcium Phosphorus Magnesium Direct Bilirubin AST ALT Alkaline Phosphatase Lactate Dehydrogenase Troponin T C-Reactive Protein Total Protein Albumin Prealbumin Triglycerides Cholesterol LDL Cholesterol Direct HDL Cholesterol Urine pH Urine WBC (Auto) Urine Creatinine Urine Total Protein Fluid Total Protein Vancomycin Trough Rheumatoid Factor Complement C4 Miscellaneous Test Crossmatch 01/03/17 01/03/17 01/03/17 05:00 05:00 14:02 WBC 11.2 H RBC 2.56 L Hgb 7.2 L Hct 22.3 L MCV MCH MCHC RDW 17.3 H Plt Count Lymph % (Auto) [place] % (Auto) 10.0 H Lymph # Trigg # 1.1 H Baso # Seg Neutrophils % 70.5 H Seg Neuts % (Manual) Lymphocytes % (Manual) Monocytes % (Manual) Eosinophils % (Manual) Basophils % (Manual) Nucleated RBC % Seg Neutrophils # 7.9 H Seg Neutrophils # Man Lymphocytes # (Manual) Monocytes # (Manual) Eosinophils # (Manual) Basophils # (Manual) PT INR Fibrinogen dRVVT Confirm Interp Factor V Activity POC ABG pH POC ABG pCO2 POC ABG pO2 ABG pO2 ABG HCO3 ABG Base Excess ABG Hemoglobin Oxyhemoglobin Sodium Potassium Chloride Carbon Dioxide BUN 60 H Creatinine 1.3 H Glucose 110 H POC Glucose 119 H Lactic Acid Calcium Phosphorus Magnesium Direct Bilirubin AST ALT Alkaline Phosphatase Lactate Dehydrogenase Troponin T C-Reactive Protein Total Protein Albumin Prealbumin Triglycerides Cholesterol LDL Cholesterol Direct HDL Cholesterol Urine pH Urine WBC (Auto) Urine Creatinine Urine Total Protein Fluid Total Protein Vancomycin Trough Rheumatoid Factor Complement C4 Miscellaneous Test Crossmatch 01/03/17 01/03/17 01/04/17 18:13 23:40 05:57 WBC RBC Hgb Hct MCV MCH MCHC RDW Plt Count Lymph % (Auto) [place] % (Auto) Lymph # [place] # Baso # Seg Neutrophils % Seg Neuts % (Manual) Lymphocytes % (Manual) Monocytes % (Manual) Eosinophils % (Manual) Basophils % (Manual) Nucleated RBC % Seg Neutrophils # Seg Neutrophils # Man Lymphocytes # (Manual) Monocytes # (Manual) Eosinophils # (Manual) Basophils # (Manual) PT INR Fibrinogen dRVVT Confirm Interp Factor V Activity POC ABG pH POC ABG pCO2 POC ABG pO2 ABG pO2 ABG HCO3 ABG Base Excess ABG Hemoglobin Oxyhemoglobin Sodium Potassium Chloride Carbon Dioxide BUN Creatinine Glucose POC Glucose 107 H 129 H 111 H Lactic Acid Calcium Phosphorus Magnesium Direct Bilirubin AST ALT Alkaline Phosphatase Lactate Dehydrogenase Troponin T C-Reactive Protein Total Protein Albumin Prealbumin Triglycerides Cholesterol LDL Cholesterol Direct HDL Cholesterol Urine pH Urine WBC (Auto) Urine Creatinine Urine Total Protein Fluid Total Protein Vancomycin Trough Rheumatoid Factor Complement C4 Miscellaneous Test Crossmatch 01/04/17 01/04/17 01/04/17 12:46 15:27 17:11 WBC RBC Hgb Hct MCV MCH MCHC RDW Plt Count Lymph % (Auto) [place] % (Auto) Lymph # [place] # Baso # Seg Neutrophils % Seg Neuts % (Manual) Lymphocytes % (Manual) Monocytes % (Manual) Eosinophils % (Manual) Basophils % (Manual) Nucleated RBC % Seg Neutrophils # Seg Neutrophils # Man Lymphocytes # (Manual) Monocytes # (Manual) Eosinophils # (Manual) Basophils # (Manual) PT INR Fibrinogen dRVVT Confirm Interp Factor V Activity POC ABG pH POC ABG pCO2 POC ABG pO2 ABG pO2 ABG HCO3 ABG Base Excess ABG Hemoglobin Oxyhemoglobin Sodium Potassium Chloride Carbon Dioxide BUN 43 H Creatinine Glucose 124 H POC Glucose 159 H 125 H Lactic Acid Calcium 8.0 L Phosphorus 2.10 L Magnesium Direct Bilirubin AST ALT Alkaline Phosphatase Lactate Dehydrogenase Troponin T C-Reactive Protein Total Protein Albumin Prealbumin Triglycerides Cholesterol LDL Cholesterol Direct HDL Cholesterol Urine pH Urine WBC (Auto) Urine Creatinine Urine Total Protein Fluid Total Protein Vancomycin Trough Rheumatoid Factor Complement C4 Miscellaneous Test Crossmatch 01/04/17 01/05/17 01/05/17 23:31 04:00 05:46 WBC RBC Hgb Hct MCV MCH MCHC RDW Plt Count Lymph % (Auto) [place] % (Auto) Lymph # [place] # Baso # Seg Neutrophils % Seg Neuts % (Manual) Lymphocytes % (Manual) Monocytes % (Manual) Eosinophils % (Manual) Basophils % (Manual) Nucleated RBC % Seg Neutrophils # Seg Neutrophils # Man Lymphocytes # (Manual) Monocytes # (Manual) Eosinophils # (Manual) Basophils # (Manual) PT INR Fibrinogen dRVVT Confirm Interp Factor V Activity POC ABG pH POC ABG pCO2 POC ABG pO2 ABG pO2 ABG HCO3 ABG Base Excess ABG Hemoglobin Oxyhemoglobin Sodium Potassium Chloride Carbon Dioxide BUN 52 H Creatinine 1.3 H Glucose 113 H POC Glucose 123 H 118 H Lactic Acid Calcium Phosphorus 2.40 L Magnesium Direct Bilirubin AST ALT Alkaline Phosphatase Lactate Dehydrogenase Troponin T C-Reactive Protein Total Protein Albumin Prealbumin Triglycerides Cholesterol LDL Cholesterol Direct HDL Cholesterol Urine pH Urine WBC (Auto) Urine Creatinine Urine Total Protein Fluid Total Protein Vancomycin Trough Rheumatoid Factor Complement C4 Miscellaneous Test Crossmatch 01/05/17 01/05/17 01/05/17 11:41 17:48 23:27 WBC RBC Hgb Hct MCV MCH MCHC RDW Plt Count Lymph % (Auto) [place] % (Auto) Lymph # [place] # Baso # Seg Neutrophils % Seg Neuts % (Manual) Lymphocytes % (Manual) Monocytes % (Manual) Eosinophils % (Manual) Basophils % (Manual) Nucleated RBC % Seg Neutrophils # Seg Neutrophils # Man Lymphocytes # (Manual) Monocytes # (Manual) Eosinophils # (Manual) Basophils # (Manual) PT INR Fibrinogen dRVVT Confirm Interp Factor V Activity POC ABG pH POC ABG pCO2 POC ABG pO2 ABG pO2 ABG HCO3 ABG Base Excess ABG Hemoglobin Oxyhemoglobin Sodium Potassium Chloride Carbon Dioxide BUN Creatinine Glucose POC Glucose 163 H 142 H 155 H Lactic Acid Calcium Phosphorus Magnesium Direct Bilirubin AST ALT Alkaline Phosphatase Lactate Dehydrogenase Troponin T C-Reactive Protein Total Protein Albumin Prealbumin Triglycerides Cholesterol LDL Cholesterol Direct HDL Cholesterol Urine pH Urine WBC (Auto) Urine Creatinine Urine Total Protein Fluid Total Protein Vancomycin Trough Rheumatoid Factor Complement C4 Miscellaneous Test Crossmatch 01/06/17 01/06/17 01/06/17 05:20 07:35 11:18 WBC RBC Hgb Hct MCV MCH MCHC RDW Plt Count Lymph % (Auto) [place] % (Auto) Lymph # [place] # Baso # Seg Neutrophils % Seg Neuts % (Manual) Lymphocytes % (Manual) Monocytes % (Manual) Eosinophils % (Manual) Basophils % (Manual) Nucleated RBC % Seg Neutrophils # Seg Neutrophils # Man Lymphocytes # (Manual) Monocytes # (Manual) Eosinophils # (Manual) Basophils # (Manual) PT INR Fibrinogen dRVVT Confirm Interp Factor V Activity POC ABG pH POC ABG pCO2 POC ABG pO2 ABG pO2 ABG HCO3 ABG Base Excess ABG Hemoglobin Oxyhemoglobin Sodium Potassium Chloride Carbon Dioxide BUN 74 H Creatinine 1.6 H Glucose 135 H POC Glucose 108 H 149 H Lactic Acid Calcium Phosphorus Magnesium Direct Bilirubin AST ALT Alkaline Phosphatase Lactate Dehydrogenase Troponin T C-Reactive Protein Total Protein Albumin Prealbumin Triglycerides Cholesterol LDL Cholesterol Direct HDL Cholesterol Urine pH Urine WBC (Auto) Urine Creatinine Urine Total Protein Fluid Total Protein Vancomycin Trough Rheumatoid Factor Complement C4 Miscellaneous Test Crossmatch 01/06/17 01/07/17 01/07/17 17:17 00:23 05:31 WBC RBC Hgb Hct MCV MCH MCHC RDW Plt Count Lymph % (Auto) [place] % (Auto) Lymph # [place] # Baso # Seg Neutrophils % Seg Neuts % (Manual) Lymphocytes % (Manual) Monocytes % (Manual) Eosinophils % (Manual) Basophils % (Manual) Nucleated RBC % Seg Neutrophils # Seg Neutrophils # Man Lymphocytes # (Manual) Monocytes # (Manual) Eosinophils # (Manual) Basophils # (Manual) PT INR Fibrinogen dRVVT Confirm Interp Factor V Activity POC ABG pH POC ABG pCO2 POC ABG pO2 ABG pO2 ABG HCO3 ABG Base Excess ABG Hemoglobin Oxyhemoglobin Sodium Potassium Chloride Carbon Dioxide BUN Creatinine Glucose POC Glucose 146 H 165 H 153 H Lactic Acid Calcium Phosphorus Magnesium Direct Bilirubin AST ALT Alkaline Phosphatase Lactate Dehydrogenase Troponin T C-Reactive Protein Total Protein Albumin Prealbumin Triglycerides Cholesterol LDL Cholesterol Direct HDL Cholesterol Urine pH Urine WBC (Auto) Urine Creatinine Urine Total Protein Fluid Total Protein Vancomycin Trough Rheumatoid Factor Complement C4 Miscellaneous Test Crossmatch 01/07/17 01/07/17 01/07/17 06:00 11:39 17:11 WBC RBC Hgb Hct MCV MCH MCHC RDW Plt Count Lymph % (Auto) [place] % (Auto) Lymph # [place] # Baso # Seg Neutrophils % Seg Neuts % (Manual) Lymphocytes % (Manual) Monocytes % (Manual) Eosinophils % (Manual) Basophils % (Manual) Nucleated RBC % Seg Neutrophils # Seg Neutrophils # Man Lymphocytes # (Manual) Monocytes # (Manual) Eosinophils # (Manual) Basophils # (Manual) PT INR Fibrinogen dRVVT Confirm Interp Factor V Activity POC ABG pH POC ABG pCO2 POC ABG pO2 ABG pO2 ABG HCO3 ABG Base Excess ABG Hemoglobin Oxyhemoglobin Sodium Potassium Chloride Carbon Dioxide BUN 42 H Creatinine Glucose 175 H POC Glucose 163 H 163 H Lactic Acid Calcium Phosphorus 2.40 L D Magnesium Direct Bilirubin AST ALT Alkaline Phosphatase Lactate Dehydrogenase Troponin T C-Reactive Protein Total Protein Albumin Prealbumin Triglycerides Cholesterol LDL Cholesterol Direct HDL Cholesterol Urine pH Urine WBC (Auto) Urine Creatinine Urine Total Protein Fluid Total Protein Vancomycin Trough Rheumatoid Factor Complement C4 Miscellaneous Test Crossmatch 01/07/17 01/08/17 01/08/17 23:40 05:00 05:00 WBC 27.4 H RBC 2.27 L Hgb 6.1 L Hct 20.4 L MCV MCH 27 L MCHC RDW 17.8 H Plt Count Lymph % (Auto) Trigg % (Auto) Lymph # Trigg # Baso # Seg Neutrophils % Seg Neuts % (Manual) Lymphocytes % (Manual) Monocytes % (Manual) Eosinophils % (Manual) Basophils % (Manual) Nucleated RBC % Seg Neutrophils # Seg Neutrophils # Man Lymphocytes # (Manual) Monocytes # (Manual) Eosinophils # (Manual) Basophils # (Manual) PT INR Fibrinogen dRVVT Confirm Interp Factor V Activity POC ABG pH POC ABG pCO2 POC ABG pO2 ABG pO2 ABG HCO3 ABG Base Excess ABG Hemoglobin Oxyhemoglobin Sodium Potassium Chloride Carbon Dioxide 16 L D BUN 62 H Creatinine 1.6 H D Glucose 103 H POC Glucose 135 H Lactic Acid Calcium Phosphorus Magnesium Direct Bilirubin AST ALT Alkaline Phosphatase Lactate Dehydrogenase Troponin T C-Reactive Protein Total Protein Albumin Prealbumin Triglycerides Cholesterol LDL Cholesterol Direct HDL Cholesterol Urine pH Urine WBC (Auto) Urine Creatinine Urine Total Protein Fluid Total Protein Vancomycin Trough Rheumatoid Factor Complement C4 Miscellaneous Test Crossmatch 01/08/17 01/08/17 01/08/17 05:25 10:37 10:37 WBC RBC Hgb Hct MCV MCH MCHC RDW Plt Count Lymph % (Auto) Trigg % (Auto) Lymph # Trigg # Baso # Seg Neutrophils % Seg Neuts % (Manual) Lymphocytes % (Manual) Monocytes % (Manual) Eosinophils % (Manual) Basophils % (Manual) Nucleated RBC % Seg Neutrophils # Seg Neutrophils # Man Lymphocytes # (Manual) Monocytes # (Manual) Eosinophils # (Manual) Basophils # (Manual) PT INR Fibrinogen dRVVT Confirm Interp Factor V Activity POC ABG pH POC ABG pCO2 POC ABG pO2 ABG pO2 ABG HCO3 ABG Base Excess ABG Hemoglobin Oxyhemoglobin Sodium Potassium Chloride Carbon Dioxide BUN Creatinine Glucose POC Glucose 106 H Lactic Acid Calcium Phosphorus Magnesium Direct Bilirubin AST ALT Alkaline Phosphatase Lactate Dehydrogenase Troponin T C-Reactive Protein 24.40 H Total Protein Albumin Prealbumin Triglycerides Cholesterol LDL Cholesterol Direct HDL Cholesterol Urine pH Urine WBC (Auto) Urine Creatinine Urine Total Protein Fluid Total Protein Vancomycin Trough Rheumatoid Factor Complement C4 Miscellaneous Test Crossmatch See Detail 01/08/17 01/08/17 01/08/17 10:37 11:33 15:15 WBC RBC Hgb Hct MCV MCH MCHC RDW Plt Count Lymph % (Auto) Trigg % (Auto) Lymph # Trigg # Baso # Seg Neutrophils % Seg Neuts % (Manual) Lymphocytes % (Manual) Monocytes % (Manual) Eosinophils % (Manual) Basophils % (Manual) Nucleated RBC % Seg Neutrophils # Seg Neutrophils # Man Lymphocytes # (Manual) Monocytes # (Manual) Eosinophils # (Manual) Basophils # (Manual) PT INR Fibrinogen dRVVT Confirm Interp Factor V Activity POC ABG pH POC ABG pCO2 POC ABG pO2 ABG pO2 ABG HCO3 ABG Base Excess ABG Hemoglobin Oxyhemoglobin Sodium Potassium Chloride Carbon Dioxide BUN Creatinine Glucose POC Glucose 157 H Lactic Acid 9.70 H* 9.10 H* Calcium Phosphorus Magnesium Direct Bilirubin AST ALT Alkaline Phosphatase Lactate Dehydrogenase Troponin T C-Reactive Protein Total Protein Albumin Prealbumin Triglycerides Cholesterol LDL Cholesterol Direct HDL Cholesterol Urine pH Urine WBC (Auto) Urine Creatinine Urine Total Protein Fluid Total Protein Vancomycin Trough Rheumatoid Factor Complement C4 Miscellaneous Test Crossmatch 01/08/17 01/08/17 01/09/17 17:19 23:12 04:40 WBC RBC Hgb Hct MCV MCH MCHC RDW Plt Count Lymph % (Auto) Trigg % (Auto) Lymph # Trigg # Baso # Seg Neutrophils % Seg Neuts % (Manual) Lymphocytes % (Manual) Monocytes % (Manual) Eosinophils % (Manual) Basophils % (Manual) Nucleated RBC % Seg Neutrophils # Seg Neutrophils # Man Lymphocytes # (Manual) Monocytes # (Manual) Eosinophils # (Manual) Basophils # (Manual) PT INR Fibrinogen dRVVT Confirm Interp Factor V Activity POC ABG pH POC ABG pCO2 POC ABG pO2 ABG pO2 ABG HCO3 ABG Base Excess ABG Hemoglobin Oxyhemoglobin Sodium 147 H Potassium Chloride Carbon Dioxide BUN 82 H Creatinine 1.8 H Glucose 137 H POC Glucose 164 H 157 H Lactic Acid Calcium Phosphorus Magnesium Direct Bilirubin AST ALT Alkaline Phosphatase Lactate Dehydrogenase Troponin T C-Reactive Protein Total Protein Albumin Prealbumin Triglycerides Cholesterol LDL Cholesterol Direct HDL Cholesterol Urine pH Urine WBC (Auto) Urine Creatinine Urine Total Protein Fluid Total Protein Vancomycin Trough Rheumatoid Factor Complement C4 Miscellaneous Test Crossmatch 01/09/17 01/09/17 01/09/17 05:42 08:22 13:30 WBC RBC Hgb Hct MCV MCH MCHC RDW Plt Count Lymph % (Auto) Trigg % (Auto) Lymph # Trigg # Baso # Seg Neutrophils % Seg Neuts % (Manual) Lymphocytes % (Manual) Monocytes % (Manual) Eosinophils % (Manual) Basophils % (Manual) Nucleated RBC % Seg Neutrophils # Seg Neutrophils # Man Lymphocytes # (Manual) Monocytes # (Manual) Eosinophils # (Manual) Basophils # (Manual) PT INR Fibrinogen dRVVT Confirm Interp Factor V Activity POC ABG pH POC ABG pCO2 POC ABG pO2 ABG pO2 ABG HCO3 ABG Base Excess ABG Hemoglobin Oxyhemoglobin Sodium Potassium Chloride Carbon Dioxide BUN Creatinine Glucose POC Glucose 156 H Lactic Acid 2.30 H* Calcium Phosphorus Magnesium Direct Bilirubin AST ALT Alkaline Phosphatase Lactate Dehydrogenase Troponin T C-Reactive Protein 24.70 H Total Protein Albumin Prealbumin Triglycerides Cholesterol LDL Cholesterol Direct HDL Cholesterol Urine pH Urine WBC (Auto) Urine Creatinine Urine Total Protein Fluid Total Protein Vancomycin Trough Rheumatoid Factor Complement C4 Miscellaneous Test Crossmatch 01/10/17 01/10/17 01/10/17 01:21 04:00 04:00 WBC 18.1 H RBC 3.22 L Hgb 8.8 L Hct 27.0 L D MCV MCH 27 L MCHC RDW 17.0 H Plt Count Lymph % (Auto) Trigg % (Auto) Lymph # Trigg # Baso # Seg Neutrophils % Seg Neuts % (Manual) Lymphocytes % (Manual) Monocytes % (Manual) Eosinophils % (Manual) Basophils % (Manual) Nucleated RBC % Seg Neutrophils # Seg Neutrophils # Man Lymphocytes # (Manual) Monocytes # (Manual) Eosinophils # (Manual) Basophils # (Manual) PT INR Fibrinogen dRVVT Confirm Interp Factor V Activity POC ABG pH POC ABG pCO2 POC ABG pO2 ABG pO2 ABG HCO3 ABG Base Excess ABG Hemoglobin Oxyhemoglobin Sodium Potassium Chloride Carbon Dioxide BUN 59 H Creatinine 1.3 H Glucose 122 H POC Glucose 160 H Lactic Acid Calcium Phosphorus Magnesium Direct Bilirubin AST ALT Alkaline Phosphatase Lactate Dehydrogenase Troponin T C-Reactive Protein Total Protein Albumin Prealbumin Triglycerides Cholesterol LDL Cholesterol Direct HDL Cholesterol Urine pH Urine WBC (Auto) Urine Creatinine Urine Total Protein Fluid Total Protein Vancomycin Trough Rheumatoid Factor Complement C4 Miscellaneous Test Crossmatch 01/10/17 05:36 WBC RBC Hgb Hct MCV MCH MCHC RDW Plt Count Lymph % (Auto) Trigg % (Auto) Lymph # Trigg # Baso # Seg Neutrophils % Seg Neuts % (Manual) Lymphocytes % (Manual) Monocytes % (Manual) Eosinophils % (Manual) Basophils % (Manual) Nucleated RBC % Seg Neutrophils # Seg Neutrophils # Man Lymphocytes # (Manual) Monocytes # (Manual) Eosinophils # (Manual) Basophils # (Manual) PT INR Fibrinogen dRVVT Confirm Interp Factor V Activity POC ABG pH POC ABG pCO2 POC ABG pO2 ABG pO2 ABG HCO3 ABG Base Excess ABG Hemoglobin Oxyhemoglobin Sodium Potassium Chloride Carbon Dioxide BUN Creatinine Glucose POC Glucose 163 H Lactic Acid Calcium Phosphorus Magnesium Direct Bilirubin AST ALT Alkaline Phosphatase Lactate Dehydrogenase Troponin T C-Reactive Protein Total Protein Albumin Prealbumin Triglycerides Cholesterol LDL Cholesterol Direct HDL Cholesterol Urine pH Urine WBC (Auto) Urine Creatinine Urine Total Protein Fluid Total Protein Vancomycin Trough Rheumatoid Factor Complement C4 Miscellaneous Test Crossmatch Allied health notes reviewed: RT
--- NOTE | 2017-01-10 09:09 | Progress Note ---
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 Epogen 20k TIW * Dose medications for renal function * Avoid potential nephrotoxins * Rate control per cardiology * Vent management per pulm/CCM * Pressors prn for MAP>65 Subjective Date of service: 01/10/17 Principal diagnosis: Acute resp failure on MVS; S/P Acute CVA; Acute Encephalopathy; JUANITA Interval history: new events from last pm noted Objective - Exam Narrative Exam: Gen. appearance: Patient lying in bed, no apparent distress, 4. restraints HEENT: Normocephalic, atraumatic, pupils equally round and reactive to light, extraocular movement intact, and no sclericterus,. No JVD or thyromegaly or nodule,neck supple, no carotid bruit ,mucous membranes moist, unable to examine oral cavity Heart: S1, S2, regular rate and rhythm Lungs: Clear to auscultation bilaterally, breathing comfortable Abdomen: Positive bowel sounds, nontender, nondistended, no organomegaly Extremity: No edema, cyanosis, clubbing Skin: No rash, nodules, warm, dry Neuro: Difficult to assess, facial droop, moves all 4 extremities - Vital Signs Vital signs: Vital Signs - 12hr 01/09/17 01/09/17 01/09/17 21:15 21:30 21:45 Temperature Pulse Rate 89 93 H 93 H Pulse Rate [ Bilateral Throughout] Pulse Rate [ From Monitor] Respiratory 22 Rate Respiratory Rate [Bilateral Throughout] Blood Pressure 151/85 121/79 121/79 O2 Sat by Pulse 100 Oximetry O2 Sat by Pulse Oximetry [ Anterior Bilateral Throughout] O2 Sat by Pulse Oximetry [ Assessment] 01/09/17 01/09/17 01/09/17 22:00 22:15 22:30 Temperature Pulse Rate 92 H 91 H 95 H Pulse Rate [ Bilateral Throughout] Pulse Rate [ From Monitor] Respiratory 13 17 Rate Respiratory Rate [Bilateral Throughout] Blood Pressure 103/71 103/71 126/77 O2 Sat by Pulse 100 100 Oximetry O2 Sat by Pulse Oximetry [ Anterior Bilateral Throughout] O2 Sat by Pulse Oximetry [ Assessment] 01/09/17 01/09/17 01/09/17 22:45 23:00 23:13 Temperature Pulse Rate 94 H 98 H 97 H Pulse Rate [ Bilateral Throughout] Pulse Rate [ From Monitor] Respiratory 20 Rate Respiratory Rate [Bilateral Throughout] Blood Pressure 114/75 119/89 123/87 O2 Sat by Pulse 100 100 Oximetry O2 Sat by Pulse Oximetry [ Anterior Bilateral Throughout] O2 Sat by Pulse Oximetry [ Assessment] 01/09/17 01/09/17 01/09/17 23:15 23:30 23:38 Temperature 98.8 F Pulse Rate 96 H 99 H Pulse Rate [ Bilateral Throughout] Pulse Rate [ From Monitor] Respiratory 20 Rate Respiratory Rate [Bilateral Throughout] Blood Pressure 119/81 128/81 O2 Sat by Pulse 100 Oximetry O2 Sat by Pulse Oximetry [ Anterior Bilateral Throughout] O2 Sat by Pulse 100 Oximetry [ Assessment] 01/09/17 01/10/17 01/10/17 23:45 00:00 00:02 Temperature 97.4 F L Pulse Rate 97 H 102 H 102 H Pulse Rate [ Bilateral Throughout] Pulse Rate [ From Monitor] Respiratory 22 24 Rate Respiratory Rate [Bilateral Throughout] Blood Pressure 128/89 146/84 146/84 O2 Sat by Pulse 100 Oximetry O2 Sat by Pulse 100 Oximetry [ Anterior Bilateral Throughout] O2 Sat by Pulse Oximetry [ Assessment] 01/10/17 01/10/17 01/10/17 00:03 00:30 01:00 Temperature Pulse Rate 102 H 96 H 88 Pulse Rate [ Bilateral Throughout] Pulse Rate [ From Monitor] Respiratory 19 20 Rate Respiratory Rate [Bilateral Throughout] Blood Pressure 146/84 123/66 102/60 O2 Sat by Pulse 100 100 Oximetry O2 Sat by Pulse Oximetry [ Anterior Bilateral Throughout] O2 Sat by Pulse Oximetry [ Assessment] 01/10/17 01/10/17 01/10/17 01:11 01:21 01:30 Temperature Pulse Rate 87 Pulse Rate [ 80 85 Bilateral Throughout] Pulse Rate [ From Monitor] Respiratory 15 Rate Respiratory 20 18 Rate [Bilateral Throughout] Blood Pressure 87/57 O2 Sat by Pulse 98 Oximetry O2 Sat by Pulse Oximetry [ Anterior Bilateral Throughout] O2 Sat by Pulse Oximetry [ Assessment] 01/10/17 01/10/17 01/10/17 02:00 02:30 03:00 Temperature Pulse Rate 88 88 89 Pulse Rate [ Bilateral Throughout] Pulse Rate [ From Monitor] Respiratory 25 H 16 15 Rate Respiratory Rate [Bilateral Throughout] Blood Pressure 108/59 121/61 115/72 O2 Sat by Pulse 96 98 100 Oximetry O2 Sat by Pulse Oximetry [ Anterior Bilateral Throughout] O2 Sat by Pulse Oximetry [ Assessment] 01/10/17 01/10/17 01/10/17 03:05 03:30 03:38 Temperature 99.4 F Pulse Rate 88 89 Pulse Rate [ Bilateral Throughout] Pulse Rate [ From Monitor] Respiratory 13 Rate Respiratory Rate [Bilateral Throughout] Blood Pressure 115/72 119/69 O2 Sat by Pulse 100 100 Oximetry O2 Sat by Pulse Oximetry [ Anterior Bilateral Throughout] O2 Sat by Pulse Oximetry [ Assessment] 01/10/17 01/10/17 01/10/17 04:00 04:05 04:30 Temperature Pulse Rate 91 H 90 Pulse Rate [ Bilateral Throughout] Pulse Rate [ From Monitor] Respiratory 17 18 17 Rate Respiratory Rate [Bilateral Throughout] Blood Pressure 123/69 108/68 O2 Sat by Pulse 100 100 100 Oximetry O2 Sat by Pulse Oximetry [ Anterior Bilateral Throughout] O2 Sat by Pulse Oximetry [ Assessment] 01/10/17 01/10/17 01/10/17 05:00 05:30 06:00 Temperature Pulse Rate 96 H 100 H 95 H Pulse Rate [ Bilateral Throughout] Pulse Rate [ From Monitor] Respiratory 19 13 21 Rate Respiratory Rate [Bilateral Throughout] Blood Pressure 119/71 136/83 122/71 O2 Sat by Pulse 99 100 100 Oximetry O2 Sat by Pulse Oximetry [ Anterior Bilateral Throughout] O2 Sat by Pulse Oximetry [ Assessment] 01/10/17 01/10/17 01/10/17 06:23 06:24 06:30 Temperature Pulse Rate 102 H 102 H 85 Pulse Rate [ Bilateral Throughout] Pulse Rate [ From Monitor] Respiratory 21 Rate Respiratory Rate [Bilateral Throughout] Blood Pressure 116/72 116/74 103/58 O2 Sat by Pulse 100 Oximetry O2 Sat by Pulse Oximetry [ Anterior Bilateral Throughout] O2 Sat by Pulse Oximetry [ Assessment] 01/10/17 01/10/17 01/10/17 07:00 07:30 08:00 Temperature 98.6 F Pulse Rate 80 79 81 Pulse Rate [ Bilateral Throughout] Pulse Rate [ 80 From Monitor] Respiratory 16 12 16 Rate Respiratory Rate [Bilateral Throughout] Blood Pressure 101/55 101/57 108/66 O2 Sat by Pulse 99 99 99 Oximetry O2 Sat by Pulse Oximetry [ Anterior Bilateral Throughout] O2 Sat by Pulse Oximetry [ Assessment] 01/10/17 01/10/17 08:30 09:00 Temperature Pulse Rate 82 81 Pulse Rate [ Bilateral Throughout] Pulse Rate [ From Monitor] Respiratory 22 13 Rate Respiratory Rate [Bilateral Throughout] Blood Pressure 105/65 95/53 O2 Sat by Pulse 99 100 Oximetry O2 Sat by Pulse Oximetry [ Anterior Bilateral Throughout] O2 Sat by Pulse Oximetry [ Assessment] - Lab 01/10/17 04:00 01/10/17 04:00 Most recent lab results ABG pH 7.450 pH Units (7.350-7.450) 12/05/16 Unknown ABG pCO2 29.6 mm Hg 12/05/16 Unknown ABG pO2 75.2 mm Hg (80.0-90.0) L 12/05/16 Unknown ABG HCO3 20.1 mmol/L (20.0-26.0) 12/05/16 Unknown ABG O2 Saturation 96.8 % (95.0-99.0) 12/05/16 Unknown Calcium 9.2 mg/dL (8.4-10.2) 01/10/17 04:00 Phosphorus 2.80 mg/dL (2.5-4.5) 01/09/17 04:40 Magnesium 1.90 mg/dL (1.7-2.3) 01/08/17 05:00 Urine Creatinine 19.7 mg/dL (0.1-20.0) 11/12/16 10:18 Urine Sodium 36 mEq/L 09/16/16 19:19 Urine Total Protein 16 mg/dL (5-11.8) H 09/16/16 19:19
[2017-01-10] MEDS: MERREM IV SCH (09:37)
[2017-01-10] MEDS: NACL 0.9% IV SCH (09:37)
[2017-01-10] MEDS: PROTONIX FEEDTUBE SCH (09:42)
[2017-01-10] MEDS: NORVASC PO SCH (09:46)
[2017-01-10] MEDS ORDERED: MERREM/NS 500 MG/50 ML 500 MG/50 ML BAG IV SCH (10:00)
--- NOTE | 2017-01-10 11:24 | Progress Note ---
Assessment and Plan Assessment: 1) Recurrent SIRS: unclear source, better. Unclear source. DDx-infected sacral decubiti, recurrent UTI, VAP ?? 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 3) History of Candidemia: -Blood cultures positive for Silvia albicans on 09/23 and 09/25 -Blood cultures negative on 09/30 -PICC line changed on 10/03 -Source ? gastric perf (PEG placed on 09/20) +/- TPN +/- central lines -TTE 10/07 no vegetations -PICC exchanged on 10/03 -fully treated with micafungin for 14 days last day 10/13 4) History CA-UTI s/p gutierrez exchanged 5) Diarrhea - ? etiology ? antibiotic-induced, not better. 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 from GI bleed 13) Recent abdominal wall abscess at surgical site-treated 14 ) Recent Enterococcal bacteremia from PICC line infection. -Blood cx + E faecailis on 11/22, repeat blood cx 11/25 negative, treated with vanco Plan: -obtain wound cultures -if not better or obvious source in 48h will obtain CT chest/abd/pelvis -continue meropenem day 3 of 7 -f/u blood cx and resp cx -exchange gutierrez -wound consult - call ID for next dressing changes -monitor lactic acid -overall prognosis very poor Thank you Dr Hodges for your consultation, will follow up with you. Pauline Carias MD Infectious Diseases Specialist [facility] ([facility] M [phone] O [phone] Subjective Date of service: 01/10/17 Principal diagnosis: Acute resp failure on MVS; S/P Acute CVA; Acute Encephalopathy; JUANITA Interval history: Interval history: remains on the vent via trach no fever, off pressors Microbiology: Blood cultures: 09/13 neg 8/ Silvia albicans / Silvia / neg 10/07 neg 11/05 neg 11/07 ngtd 11/22 E faecalis 1 of 4 bottles 11/25 neg 12/27 neg 01/09 ngtd Urine cultures: 09/10 neg 09/13 neg 8/ 10-100K mixed species 10/07 neg 11/05 VRE 11/07 mixed bacteria Respiratory cultures: 09/07 neg 09/13 neg 09/23 neg 11/07 MDR Pseudomonas 11/21 tracheal + VRE 01/09 pend Wound cultures: 10/17 abd wall wound purulence + Pseudomonas MDR Stool cultures: cath tip 11/07 + [employer] Current Antimicrobials: meropenem 01/08 Previous Antimicrobials: Zosyn 10/07 Vancomycin PO 10/01 Metronidazole 09/25 Micafungin 09/27-10/13 Meropenem 10/10 Vanco 10/17 zosyn 10/21 Cefepime 11/10 vancomyin 11/07 fluconazole 10/19 cefepime 10/29levaquin 11/05 vanco 11/23 Objective - Exam Narrative Exam: General appearance: somnolent, non communicative, on the vent via trach no following commands Eyes: anicteric sclera, moist conjunctivae; PERRLA HENT: Atraumatic; oropharynx limited; Normal external ears. +NGT with greenish secretion Neck: +trach in place; supple, no thyromegaly or lymphadenopathy Lungs: brit coarse BS CV: tachycardic Abdomen: Soft, non-tender, +old PEG site no drainage. +iliostomy. Right sided Surgical site x 2 with ostomy bag draining small amount yellowish secretion Extremities: +peripheral edema no extremity lymphadenopathy Skin: sacral area wounds not examined Psych: somnolent . Neuro: alert non verbal on the vent. Lines: new PICC left arm 11/29 - Constitutional Vitals: Vital Signs Temp Pulse Resp BP Pulse Ox 98.6 F 88 18 108/58 100 01/10/17 08:00 01/10/17 11:00 01/10/17 11:00 01/10/17 11:00 01/10/17 11:00 Temperature -Last 24 Hours Temperature 98.6 F Temperature 99.4 F Temperature 97.4 F Temperature 98.8 F Temperature 97.4 F Temperature 97.4 F Temperature 98.7 F Temperature 98.7 F - Labs CBC & Chem 7: 01/10/17 04:00 01/10/17 04:00 Labs: Abnormal lab results 01/09/17 01/09/17 01/10/17 Range/Units 08:22 13:30 01:21 WBC (4.5-11.0) K/mm3 RBC (3.65-5.03) M/mm3 Hgb (10.1-14.3) gm/dl Hct (30.3-42.9) % MCH (28-32) pg RDW (13.2-15.2) % BUN (7-17) mg/dL Creatinine (0.7-1.2) mg/dL Glucose (65-100) mg/dL POC Glucose 160 H (70-105) Lactic Acid 2.30 H* (0.7-2.0) mmol/L C-Reactive Protein 24.70 H (0.00-1.30) mg/dL 01/10/17 01/10/17 01/10/17 Range/Units 04:00 04:00 05:36 WBC 18.1 H (4.5-11.0) K/mm3 RBC 3.22 L (3.65-5.03) M/mm3 Hgb 8.8 L (10.1-14.3) gm/dl Hct 27.0 L D (30.3-42.9) % MCH 27 L (28-32) pg RDW 17.0 H (13.2-15.2) % BUN 59 H (7-17) mg/dL Creatinine 1.3 H (0.7-1.2) mg/dL Glucose 122 H (65-100) mg/dL POC Glucose 163 H (70-105) Lactic Acid (0.7-2.0) mmol/L C-Reactive Protein (0.00-1.30) mg/dL
--- NOTE | 2017-01-10 12:46 | Progress Note ---
Assessment and Plan Assessment and plan: Patient is 46-year-old woman with a history of hypertension, diabetes mellitus, asthma, hyperlipidemia, chronic kidney disease and anxiety, who was brought in by family because she couldn't get her words out, her face was also twisted, she was admitted for acute CVA and accelerated hypertension, she had a hx of poor adherence with her medications, and uncontrolled htn. Patient's SBP on admission was noted be greater than 260. TPA was started but this it was discontinued after 5 minutes because her blood pressure became uncontrolled. The TPA was not initiated again because the patient was outside the TPA window. Patient has had a prolonged hospital stay complicated with recurrent severe sepsis. Patient with most recent event also status post cardiac arrest on and received CPR. -Severe Sepsis with septic shock (shock resolved) Patient with multiple episodes of sepsis. Initial episode due to presumed aspiration pneumonia and septic episode on 09/23 from candidemia, then a third episode from peritonitis from gastric perforation from dislodged PEG +/-UTI. Patient was also noted to have had Candidemia with Blood cultures positive for Silvia albicans 09/23, 09/25 but negative on 09/30. Antibiotic discontinued on 12/05 per ID. patient is s/p R thoracentesis on 11/14, 240cc of serous fluid removed, cx of fluid was negative. Also, Stool negative for C. difficile -Surgical wound infection/gram-negative sepsis/candidemia/peritonitis/fungemia. Continue wound care to ostomy sites -Acute hypoxic respiratory failure, status post tracheostomy Patient placed back on ventilation. Patient currently with CPAP mode. Patient failed T-piece trials. Tracheostomy tube leak. Pulmonary following -Acute massive CVA with mass effect; continue antiplatelets and statins CT showed continued evolution of left MCA infarct with slight mass effect and edema, and there is no hemorrhage -PRINCE showed hyperdynamic ventricle with ef of 75%, neither clot nor septal defect seen -MRA Brain shows near complete occlusion of M2 and M3 of the left MCA carotid doppler negative -Echo shows preserved systolic function but does show some left ventricular diastolic dysfunction -continue asa and statin -Oliguric acute kidney injury. Etiology secondary to ATN on CKD. Baseline creatinine is approximately 1.7. -Dislodged PEG tube: Status post repair of gastric perforation which wedge gastrectomy -Paroxysmal atrial fibrillation with rapid ventricular rate, failed cardioversion Continue current medications, Not a candidate for anticoagulation secondary to anemia, thrombocytopenia and massive CVA -Anemia; probably secondary to GI bleeding Patient received multiple units of PRBC in the past, hemoglobin currently stable -Toxic metabolic encephalopathy; supportive care -Diabetes mellitus type 2, Insulin/SSI -Severe protein caloric malnutrition, cont TPN -s/p Thrombocytopenia. Now resolved -DVT prophylaxis, SCDs, no pharmacological agent given anemia , thrombocytopenia , massive stroke -Full code status, very poor prognosis now on TPN 12/18/16: yesterday pt became hypotensive after dialysis and Vasopressin was started by Dr. Lara. She was given iv hydralazine overnight. She is still on Vasopressin, now back in AFib/aflutter with RVR. i d/w Dr. Rollins who recommends iv amiodarone drip without bolus. I also spoke with [facility], Dr. De Leon. per Dr. Rollins: Paroxysmal Afib s/p failed cardioversion on 09/25 on IV lopressor for suppression considered not a candidate for anticoagulation due to severe anemia requiring blood transfusion 12/19/16: still on vasopressin, convert back to sinus, not on Amiodarone. Still on TPN, reorder restraints 01/09/17: I am back on Ms. العراقي' care team Ethics consult pending, family refuse hospice, Insurance denied LTACH When abdominal wound heals, ?place PEG and send to residential. Patient now on recurrent anemia requiring 2 units packed red blood cell: ccm is following Severe Leukocytosis, re-consulted ID. If leukocytosis is not improving should repeat CT abdomen and pelvis to rule out ischemic bowel==>not done, Cr increased to 1.8 today. Will repeat labs in am The high probability of a clinically significant, sudden or life threatening deterioration of the [neurologic, CV] system(s) required my full and direct attention, intervention and personal management. The aggregate critical care time was [32] minutes. This time is in addition to time spent performing reported procedures but includes the following: [x] Data Review and interpretation [x] Patient assessment and monitoring of vital signs [x] Documentation [x] Medication orders and management 01/10/17 Cr has increase, will check electrolytes. Ethics committee awaiting for family meeting but some family has not provided Zul[place], case management available times. Hopefully, after the History Interval history: Patient seen and examined. Follow up on current diagnosis/respiratory failure. Still unresponsive, Imaging, old records, testing, labs, nursing notes reviewed. Hospitalist Physical - Physical exam Narrative exam: GEN: Ill appearing, trach, staring, in vegatative state NECK: SUPPLE, trach in place, ngt in place CVS: regular currently NORMAL S1S2 LUNGS/CHEST: NORMAL CHEST EXPANSION B, GOOD AIR ENTRY B ABD: SOFT, NTND, 3 ostomy bags in 3 different locations, GBS, NO REBOUND OR GUARDING EXT/SKIN: NO SIGNIFICANT EDEMA OR RASH MSK: no spontaneous movement NEURO: CN 2-12 GROSSLY INTACT, on a ventilator PSY: Comatose, - Constitutional Vitals: Temp Pulse Resp BP Pulse Ox 98.6 F 88 99 H 100/51 98 01/10/17 12:00 01/10/17 11:40 01/10/17 11:40 01/10/17 11:30 01/10/17 11:40 General appearance: Present: no acute distress, well-nourished, obese Results - Labs CBC & Chem 7: 01/10/17 04:00 01/10/17 04:00 Labs: Laboratory Last Values WBC 18.1 K/mm3 (4.5-11.0) H 01/10/17 04:00 RBC 3.22 M/mm3 (3.65-5.03) L 01/10/17 04:00 Hgb 8.8 gm/dl (10.1-14.3) L 01/10/17 04:00 Hct 27.0 % (30.3-42.9) L D 01/10/17 04:00 MCV 84 fl (79-97) 01/10/17 04:00 MCH 27 pg (28-32) L 01/10/17 04:00 MCHC 33 % (30-34) 01/10/17 04:00 RDW 17.0 % (13.2-15.2) H 01/10/17 04:00 Plt Count 350 K/mm3 (140-440) 01/10/17 04:00 Lymph % (Auto) 18.5 % (13.4-35.0) 01/03/17 05:00 [place] % (Auto) 10.0 % (0.0-7.3) H 01/03/17 05:00 Eos % (Auto) 0.5 % (0.0-4.3) 01/03/17 05:00 Baso % (Auto) 0.5 % (0.0-1.8) 01/03/17 05:00 Lymph # 2.1 K/mm3 (1.2-5.4) 01/03/17 05:00 [place] # 1.1 K/mm3 (0.0-0.8) H 01/03/17 05:00 Eos # 0.1 K/mm3 (0.0-0.4) 01/03/17 05:00 Baso # 0.1 K/mm3 (0.0-0.1) 01/03/17 05:00 Add Manual Diff Complete 12/19/16 05:02 Total Counted 100 12/19/16 05:02 Seg Neutrophils % 70.5 % (40.0-70.0) H 01/03/17 05:00 Seg Neuts % (Manual) 64.0 % (40.0-70.0) 12/19/16 05:02 Band Neutrophils % 15.0 % 12/19/16 05:02 Lymphocytes % (Manual) 13.0 % (13.4-35.0) L 12/19/16 05:02 Reactive Lymphs % (Man) 0 % 12/19/16 05:02 Monocytes % (Manual) 7.0 % (0.0-7.3) 12/19/16 05:02 Eosinophils % (Manual) 0 % (0.0-4.3) 12/19/16 05:02 Basophils % (Manual) 1.0 % (0.0-1.8) 12/19/16 05:02 Metamyelocytes % 0 % 12/19/16 05:02 Myelocytes % 0 % 12/19/16 05:02 Promyelocytes % 0 % 12/19/16 05:02 Blast Cells % 0 % 12/19/16 05:02 Nucleated RBC % 1.0 % (0.0-0.9) H 12/19/16 05:02 Seg Neutrophils # 7.9 K/mm3 (1.8-7.7) H 01/03/17 05:00 Seg Neutrophils # Man 12.9 K/mm3 (1.8-7.7) H 12/19/16 05:02 Band Neutrophils # 3.0 K/mm3 12/19/16 05:02 Lymphocytes # (Manual) 2.6 K/mm3 (1.2-5.4) 12/19/16 05:02 Abs React Lymphs (Man) 0.0 K/mm3 12/19/16 05:02 Monocytes # (Manual) 1.4 K/mm3 (0.0-0.8) H 12/19/16 05:02 Eosinophils # (Manual) 0.0 K/mm3 (0.0-0.4) 12/19/16 05:02 Basophils # (Manual) 0.2 K/mm3 (0.0-0.1) H 12/19/16 05:02 Metamyelocytes # 0.0 K/mm3 12/19/16 05:02 Myelocytes # 0.0 K/mm3 12/19/16 05:02 Promyelocytes # 0.0 K/mm3 12/19/16 05:02 Blast Cells # 0.0 K/mm3 12/19/16 05:02 Pathologist Review 09/13/16 04:00 WBC Morphology Not Reportable 12/19/16 05:02 Hypersegmented Neuts Not Reportable 12/19/16 05:02 Hyposegmented Neuts Not Reportable 12/19/16 05:02 Hypogranular Neuts Not Reportable 12/19/16 05:02 Smudge Cells Not Reportable 12/19/16 05:02 Toxic Granulation Not Reportable 12/19/16 05:02 Toxic Vacuolation Not Reportable 12/19/16 05:02 Dohle Bodies Not Reportable 12/19/16 05:02 Pelger-Huet Anomaly Not Reportable 12/19/16 05:02 Jasmina Rods Not Reportable 12/19/16 05:02 Platelet Estimate Consistent w auto 12/19/16 05:02 Clumped Platelets Not Reportable 12/19/16 05:02 Plt Clumps, EDTA Not Reportable 12/19/16 05:02 Large Platelets Not Reportable 12/19/16 05:02 Giant Platelets Not Reportable 12/19/16 05:02 Platelet Satelliting Not Reportable 12/19/16 05:02 Plt Morphology Comment Not Reportable 12/19/16 05:02 RBC Morphology Not Reportable 12/19/16 05:02 Dimorphic RBCs Not Reportable 12/19/16 05:02 Polychromasia Not Reportable 12/19/16 05:02 Hypochromasia Not Reportable 12/19/16 05:02 Poikilocytosis Not Reportable 12/19/16 05:02 Anisocytosis Not Reportable 12/19/16 05:02 Microcytosis Not Reportable 12/19/16 05:02 Macrocytosis Not Reportable 12/19/16 05:02 Spherocytes Not Reportable 12/19/16 05:02 Pappenheimer Bodies Not Reportable 12/19/16 05:02 Sickle Cells Not Reportable 12/19/16 05:02 Target Cells Few 12/19/16 05:02 Tear Drop Cells Not Reportable 12/19/16 05:02 Ovalocytes Not Reportable 12/19/16 05:02 Stomatocytes Rare 12/03/16 04:00 Helmet Cells Not Reportable 12/19/16 05:02 [place] Bodies Not Reportable 12/19/16 05:02 [place] Rings Not Reportable 12/19/16 05:02 Chuck Cells Not Reportable 12/19/16 05:02 Bite Cells Not Reportable 12/19/16 05:02 Crenated Cell Not Reportable 12/19/16 05:02 Elliptocytes Not Reportable 12/19/16 05:02 Acanthocytes (Spur) Not Reportable 12/19/16 05:02 Rouleaux Not Reportable 12/19/16 05:02 Hemoglobin C Crystals Not Reportable 12/19/16 05:02 Schistocytes Not Reportable 12/19/16 05:02 Malaria parasites Not Reportable 12/19/16 05:02 ESR > 140.0 mm/Hr (0-20) 09/08/16 11:48 Jun Bodies Not Reportable 12/19/16 05:02 Hem Pathologist Commnt No 12/19/16 05:02 PT 16.1 Sec. (12.2-14.9) H 12/28/16 08:30 INR 1.23 (0.87-1.13) H 12/28/16 08:30 APTT 33.0 Sec. (24.2-36.6) 10/09/16 03:45 Thrombin Time 16.8 Sec. (15.1-19.6) 09/03/16 00:10 Fibrinogen 750 mg/dl (211-480) H 09/08/16 11:48 Lupus Anticoagulant see below 09/12/16 09:59 LA PTT Baseline See scanned report 09/12/16 09:59 dRVVT Confirm Interp Positive (Negative) H 09/12/16 09:59 dRVVT Screen 50:50 See scanned report 09/12/16 09:59 dRVVT Mix Interpret See scanned report 09/12/16 09:59 Protein C Antigen 122 % (70-140) 09/08/16 15:35 Free Protein S 97 % normal (50-147) 09/08/16 15:35 Total Protein S 109 % (70-140) 09/08/16 15:35 Antithrombin III Ag 100 % (80-120) 09/08/16 15:35 Heparin Anti-Xa, Unfract Negative (Negative) 09/29/16 13:35 Factor V Activity 182 % (65-150) H 09/08/16 15:35 POC ABG pH 7.503 (7.35-7.45) H 12/19/16 09:36 ABG pH 7.450 pH Units (7.350-7.450) 12/05/16 Unknown POC ABG pCO2 30.1 (35-45) L 12/19/16 09:36 ABG pCO2 29.6 mm Hg 12/05/16 Unknown POC ABG pO2 85 (80-105) 12/19/16 09:36 ABG pO2 75.2 mm Hg (80.0-90.0) L 12/05/16 Unknown POC ABG HCO3 23.6 12/19/16 09:36 ABG HCO3 20.1 mmol/L (20.0-26.0) 12/05/16 Unknown POC ABG Total CO2 25 12/19/16 09:36 POC ABG O2 Sat 97 12/19/16 09:36 ABG O2 Saturation 96.8 % (95.0-99.0) 12/05/16 Unknown ABG O2 Content 9.9 (0.0-44) 12/05/16 Unknown POC ABG Base Excess 1 12/19/16 09:36 ABG Base Excess -3.4 mmol/L (-2.0-3.0) L 12/05/16 Unknown ABG Hemoglobin 7.4 gm/dl (12.0-16.0) L 12/05/16 Unknown ABG Carboxyhemoglobin 1.8 % (0.0-5.0) 12/05/16 Unknown ABG Methemoglobin 0.6 % (0.0-1.5) 12/05/16 Unknown Oxyhemoglobin 94.5 % (95.0-99.0) L 12/05/16 Unknown FiO2 28 % 12/19/16 09:36 Sodium 142 mmol/L (137-145) 01/10/17 04:00 Potassium 3.6 mmol/L (3.6-5.0) 01/10/17 04:00 Chloride 102.9 mmol/L (98-107) 01/10/17 04:00 Carbon Dioxide 25 mmol/L (22-30) 01/10/17 04:00 Anion Gap 18 mmol/L 01/10/17 04:00 BUN 59 mg/dL (7-17) H 01/10/17 04:00 Creatinine 1.3 mg/dL (0.7-1.2) H 01/10/17 04:00 Estimated GFR 54 ml/min 01/10/17 04:00 BUN/Creatinine Ratio 45 % 01/10/17 04:00 Glucose 122 mg/dL (65-100) H 01/10/17 04:00 POC Glucose 163 (70-105) H 01/10/17 05:36 Osmolality 351 Mosm/kg 09/16/16 11:47 Lactic Acid 2.30 mmol/L (0.7-2.0) H* 01/09/17 08:22 Calcium 9.2 mg/dL (8.4-10.2) 01/10/17 04:00 Phosphorus 2.80 mg/dL (2.5-4.5) 01/09/17 04:40 Magnesium 1.90 mg/dL (1.7-2.3) 01/08/17 05:00 Total Bilirubin 0.50 mg/dL (0.1-1.2) 01/01/17 05:00 Direct Bilirubin 0.3 mg/dL (0-0.2) H 10/10/16 05:00 Indirect Bilirubin 0.1 mg/dL 10/10/16 05:00 AST 35 units/L (5-40) 01/01/17 05:00 ALT 51 units/L (7-56) 01/01/17 05:00 Alkaline Phosphatase 536 units/L (35-129) H 01/01/17 05:00 Ammonia 27.0 umol/L (25-60) 09/07/16 08:37 Lactate Dehydrogenase 196 units/L (91-180) H 11/11/16 06:59 Total Creatine Kinase 121 units/L (30-135) 09/29/16 20:12 CK-MB (CK-2) < 1.0 ng/mL (0.0-4.0) 09/29/16 20:12 CK-MB (CK-2) Rel Index 0.8 (0-4) 09/29/16 20:12 Troponin T 0.204 ng/mL (0.00-0.029) H* 09/29/16 20:12 C-Reactive Protein 24.70 mg/dL (0.00-1.30) H 01/09/17 13:30 Total Protein 6.3 g/dL (6.3-8.2) 01/01/17 05:00 Albumin 1.5 g/dL (3.9-5) L 01/01/17 05:00 Albumin/Globulin Ratio 0.3 % 01/01/17 05:00 Prealbumin 0.110 g/L (0.200-0.400) L 12/29/16 05:15 Triglycerides 137 mg/dL (2-149) 09/29/16 20:12 Cholesterol 31 mg/dL (50-199) L 09/29/16 20:12 LDL Cholesterol Direct 4 mg/dL (50-130) L 09/29/16 20:12 HDL Cholesterol 3 mg/dL (40-59) L 09/29/16 20:12 Cholesterol/HDL Ratio 10.33 % 09/29/16 20:12 Angiotensin Convert Enz See scanned report 09/08/16 11:48 Renin 0.99 ng/mL/h (0.25-5.82) 10/07/16 10:56 Aldosterone <1 ng/dL () 10/07/16 10:56 Aldosterone/Renin Dir see below 10/07/16 10:56 Serotonin Release Assay See scanned report 09/29/16 13:35 TSH 1.010 mlU/mL (0.270-4.200) 09/07/16 08:37 HCG, Qual Negative (Negative) 09/03/16 00:10 Urine Color Yellow (Yellow) 11/05/16 13:09 Urine Turbidity Clear (Clear) 11/05/16 13:09 Urine pH 9.0 (5.0-7.0) H 11/05/16 13:09 Ur Specific [place] 1.011 (1.003-1.030) 11/05/16 13:09 Urine Protein 100 mg/dl mg/dL (Negative) 11/05/16 13:09 Urine Glucose (UA) Neg mg/dL (Negative) 11/05/16 13:09 Urine Ketones Neg mg/dL (Negative) 11/05/16 13:09 Urine Blood Neg (Negative) 11/05/16 13:09 Urine Nitrite Neg (Negative) 11/05/16 13:09 Urine Bilirubin Neg (Negative) 11/05/16 13:09 Urine Urobilinogen < 2.0 mg/dL (<2.0) 11/05/16 13:09 Ur Leukocyte Esterase Neg (Negative) 11/05/16 13:09 Urine WBC (Auto) 4.0 /HPF (0.0-6.0) 11/05/16 13:09 Urine RBC (Auto) 1.0 /HPF (0.0-6.0) 11/05/16 13:09 U Epithel Cells (Auto) 1.0 /HPF (0-13.0) 10/07/16 18:30 Urine Bacteria (Auto) 4+ /HPF (Negative) 11/05/16 13:09 Urine WBC Clumps 2+ /HPF 09/07/16 02:47 Hyaline Casts 4 /LPF 09/07/16 02:47 Urine Mucus Few /HPF 10/07/16 18:30 Urine Yeast (Budding) 3+ /HPF 10/07/16 18:30 Urine Eosinophils None seen (None Seen) 09/07/16 16:00 Urine Total Volume 950 11/12/16 10:18 Urine Creatinine 19.7 mg/dL (0.1-20.0) 11/12/16 10:18 Height (in) 65.0 inches 11/12/16 10:18 Weight (lb) 181.0 lbs 11/12/16 10:18 Creatinine Clearance 5 11/12/16 10:18 Urine Sodium 36 mEq/L 09/16/16 19:19 Urine Total Protein 16 mg/dL (5-11.8) H 09/16/16 19:19 Fluid Total Protein < 3.0 (15.0-45.0) L 11/10/16 14:20 Fluid LDH 123 11/10/16 14:20 Vancomycin Trough 2.3 ug/mL (5.0-20.0) L 09/21/16 13:00 Random Vancomycin 16.5 ug/mL (0-40.0) 11/28/16 09:45 Urine Opiates Screen Presumptive negative 09/03/16 15:11 Urine Methadone Screen Presumptive positive 09/03/16 15:11 Ur Barbiturates Screen Presumptive positive 09/03/16 15:11 Ur Phencyclidine Scrn Presumptive negative 09/03/16 15:11 Ur Amphetamines Screen Presumptive negative 09/03/16 15:11 U Benzodiazepines Scrn Presumptive negative 09/03/16 15:11 Urine Cocaine Screen Presumptive negative 09/03/16 15:11 U Marijuana (THC) Screen Presumptive positive 09/03/16 15:11 Drugs of Abuse Note Disclamer 09/03/16 15:11 Rheumatoid Factor 24 IU/ml (0-13) H 09/08/16 11:48 SAHIL Screen Negative (Negative) 09/07/16 09:20 Proteinase 3 (PR3) Ab <1.0 AI (<1.0) 09/07/16 09:20 Myeloperoxidase Ab <1.0 AI (<1.0) 09/07/16 09:20 Sjogren's Antibody <1.0 AI (<1.0) 09/08/16 15:35 Scl-70 Scleroderma Ab <1.0 AI (<1.0) 09/08/16 15:35 Centromere B Antibody <1.0 AI (<1.0) 09/08/16 12:02 Heparin-induced Plt Ab Negative (Negative) 09/29/16 13:35 UF Heparin High Dose 11 % Release 09/29/16 13:35 SUDHIR UFH Low Dose 0.1 6 % Release 09/29/16 13:35 SUDHIR UFH Low Dose 0.5 8 % Release 09/29/16 13:35 Cardiolipid IgG Ab <14 GPL (<=14) 09/12/16 09:59 Cardiolipid IgA Ab <11 APL (<=11) 09/12/16 09:59 Cardiolipid IgM Ab <12 MPL (<=12) 09/12/16 09:59 Complement C3 148 mg/dL (90-180) 09/07/16 09:20 Complement C4 58 mg/dL (16-47) H 09/07/16 09:20 RPR Nonreactive (Nonreactive) 09/08/16 11:48 Hepatitis A IgM Ab Non-reactive (NonReactive) 09/24/16 14:40 Hep Bs Antigen Non-reactive (Negative) 09/24/16 14:40 Hep B Core IgM Ab Non-reactive (NonReactive) 09/24/16 14:40 Hepatitis C Antibody Non-reactive (NonReactive) 09/24/16 14:40 HIV 1&2 Antibody Rapid Non react (Non React) 09/08/16 11:48 HIV P24 Antigen Non react (Non React) 09/08/16 11:48 Miscellaneous Test Flexitest 1 H 11/05/16 13:25 Blood Type A POSITIVE 01/08/17 10:37 Antibody Screen Negative 01/08/17 10:37 DELORIS Antibody Screen Negative 11/24/16 11:20 Crossmatch See Detail 01/08/17 10:37
[2017-01-10] MEDS: TRANSDERM-SCOP TD SCH (13:40)
[2017-01-10] MEDS: DURAGESIC TD SCH (13:40)
[2017-01-10] MEDS ORDERED: TPN ADULT IV SCH (20:00)
[2017-01-11] MEDS: LOPRESSOR PO SCH ×3 (00:07→12:57)
[2017-01-11] MEDS: HumuLIN R SUB-Q SCH ×2 (00:30→05:24)
[2017-01-11] MEDS: DUONEB *Not for PRN Use IH SCH ×4 (01:48→19:17)
[2017-01-11] MEDS: DAKIN'S HALF STRENGTH TP SCH ×2 (02:59→12:30)
[2017-01-11 04:59] LABS: Hematocrit 25.5 % (30.3-42.9); Hemoglobin 8.2 gm/dl (10.1-14.3); Mean Corpuscular HGB Conc 32 % (30-34); Mean Corpuscular Hemoglobin 27 pg (28-32); Mean Corpuscular Volume 84 fl (79-97); Platelet Count 305 K/mm3 (140-440); Red Blood Count 3.04 M/mm3 (3.65-5.03); Red Cell Distribution Width 17.3 % (13.2-15.2)
[2017-01-11 05:14] LABS: Calcium 9.6 mg/dL (8.4-10.2)
--- NOTE | 2017-01-11 10:13 | Progress Note ---
Assessment and Plan Assessment: 1) Recurrent SIRS: unclear source, better. Unclear source. DDx-infected sacral decubiti, recurrent UTI, VAP ?? 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 3) History of Candidemia: -Blood cultures positive for Silvia albicans on 09/23 and 09/25 -Blood cultures negative on 09/30 -PICC line changed on 10/03 -Source ? gastric perf (PEG placed on 09/20) +/- TPN +/- central lines -TTE 10/07 no vegetations -PICC exchanged on 10/03 -fully treated with micafungin for 14 days last day 10/13 4) History CA-UTI s/p gutierrez exchanged 5) Diarrhea - ? etiology ? antibiotic-induced, not better. 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 from GI bleed 13) Recent abdominal wall abscess at surgical site-treated 14 ) Recent Enterococcal bacteremia from PICC line infection. 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 no cultures obtained Plan: -obtain wound cultures - pending - discussed with wound care -continue meropenem day 4 (if she has sacral osteo will do 4 weeks) -monitor lactic acid -overall prognosis very poor I am rounding tomorrow Thank you Dr Hodges for your consultation, will follow up with you. Pauline Carias MD Infectious Diseases Specialist [facility] M [phone] O [phone] Subjective Date of service: 01/11/17 Principal diagnosis: Acute resp failure on MVS; S/P Acute CVA; Acute Encephalopathy; JUANITA Interval history: Interval history: remains on the vent via trach no fever, off pressors, + TPN Microbiology: Blood cultures: 09/13 neg 09/23 Silvia albicans 09/25 Silvia 09/29 neg 10/07 neg 11/05 neg 11/07 ngtd 11/22 E faecalis 1 of 4 bottles 11/25 neg 12/27 neg 01/09 ngtd Urine cultures: 09/10 neg 09/13 neg 8/ 10-100K mixed species 10/07 neg 11/05 VRE 11/07 mixed bacteria Respiratory cultures: 09/07 neg 09/13 neg 8 neg 11/07 MDR Pseudomonas 11/21 tracheal + VRE 01/09 pend Wound cultures: 10/17 abd wall wound purulence + Pseudomonas MDR Stool cultures: cath tip 11/07 + FRONT END MANAGER Current Antimicrobials: meropenem 01/08 Previous Antimicrobials: Zosyn 10/07 Vancomycin PO 10/01 Metronidazole 09/25 Micafungin 09/27-10/13 Meropenem 10/10 Vanco 10/17 zosyn 10/21 Cefepime 11/10 vancomyin 11/07 fluconazole 10/19 cefepime 10/29levaquin 11/05 vanco 11/23 Objective - Exam Narrative Exam: General appearance: alert non communicative, on the vent via trach no following commands Eyes: anicteric sclera, moist conjunctivae; PERRLA HENT: Atraumatic; oropharynx limited; Normal external ears. +NGT with greenish secretion Neck: +trach in place; supple, no thyromegaly or lymphadenopathy Lungs: brit coarse BS CV: tachycardic Abdomen: Soft, non-tender, +old PEG site no drainage. +iliostomy. Right sided Surgical site x 2 with ostomy bag draining small amount yellowish secretion Extremities: +peripheral edema Skin: sacral area wounds - per wound care STAGE 4 PRESSURE INJURY TO SACRAL MEASURES 7.5X6X2.5, WITH UNDERMINING FROM @9-1 OCLOCK-2.8CM-ULCER CLEANED WITH WOUND FLIGHT STEWARD-ULCER Psych: somnolent . Neuro: alert non verbal on the vent. Lines: PICC / gutierrez - Constitutional Vitals: Vital Signs Temp Pulse Resp BP Pulse Ox 97.8 F 112 H 18 97/58 100 01/11/17 09:00 01/11/17 09:59 01/11/17 09:03 01/11/17 09:59 01/11/17 09:00 Temperature -Last 24 Hours Temperature 97.8 F Temperature 98.6 F Temperature 98.8 F Temperature 98.4 F Temperature 98.7 F Temperature 98.6 F - Labs CBC & Chem 7: 01/11/17 04:00 01/11/17 04:00 Labs: Abnormal lab results 01/09/17 01/09/17 01/10/17 Range/Units 10:57 17:14 12:14 WBC (4.5-11.0) K/mm3 RBC (3.65-5.03) M/mm3 Hgb (10.1-14.3) gm/dl Hct (30.3-42.9) % MCH (28-32) pg RDW (13.2-15.2) % BUN (7-17) mg/dL Creatinine (0.7-1.2) mg/dL Glucose (65-100) mg/dL POC Glucose 122 H 127 H 120 H (70-105) 01/10/17 01/11/17 01/11/17 Range/Units 17:55 00:09 04:00 WBC 15.8 H (4.5-11.0) K/mm3 RBC 3.04 L (3.65-5.03) M/mm3 Hgb 8.2 L (10.1-14.3) gm/dl Hct 25.5 L (30.3-42.9) % MCH 27 L (28-32) pg RDW 17.3 H (13.2-15.2) % BUN (7-17) mg/dL Creatinine (0.7-1.2) mg/dL Glucose (65-100) mg/dL POC Glucose 144 H 122 H (70-105) 01/11/17 Range/Units 04:00 WBC (4.5-11.0) K/mm3 RBC (3.65-5.03) M/mm3 Hgb (10.1-14.3) gm/dl Hct (30.3-42.9) % MCH (28-32) pg RDW (13.2-15.2) % BUN 78 H (7-17) mg/dL Creatinine 1.6 H (0.7-1.2) mg/dL Glucose 109 H (65-100) mg/dL POC Glucose (70-105)
[2017-01-11] MEDS: HEPARIN SUB-Q SCH ×2 (11:12→21:48)
[2017-01-11] MEDS: ROBINUL PO SCH ×2 (11:12→22:00)
[2017-01-11] MEDS: PROTONIX FEEDTUBE SCH (11:13)
[2017-01-11] MEDS: MERREM IV SCH (11:19)
[2017-01-11] MEDS: NACL 0.9% IV SCH (11:19)
--- NOTE | 2017-01-11 11:55 | Progress Note ---
Assessment and Plan Acute Hypoxemic Respiratory Failure (now with exacerbation and back on MVS) Hypertension (unable to receive p.o. meds) Atrial Fibrillation with RVR s/p tracheostomy Acute encephalopathy s/p CVA Oropharyngeal dysphagia Enterococcal bacteremia sepsis syndrome Sacral Decubitus Ulcer (s/p surgical debridement) Anemia Obesity JUANITA now on hemodialysis Enteric Fistula (I discussed fluid collections with surgeon re: need for further intervention or stopping enteral nutrition; i was informed that there was no need for surgical intervention acutely as findings were sequelae of prior interventions; also ok to continue enteral nutrition) - continue tube feeds at 10mls/hr; continue reglan at 5mg IV q6h - continue HD/UF per nephrology; with CXR picture and chest ultrasound i will recommend continued UF sessions at least 3 x weekly as tolerated - will order right thoracentesis after review of CT lung windows as wshould improve weaning - continue fentanyl patch for pain issues especially s/p debridement - continue wound care per WCT and RN's (s/p surgical debridement) - continue anti-infectives per ID recs - prn CRP & lactate levels if clinically indicated (Follow WBC also) - keep on with daily PSV trials and / or T-piece as tolerated (repeat trial each shift if failed earlier shift)(not tolerating today either) - continue TPN administration - continue scopolamine for secretion control - continue to wean FiO2 for sats > 94% - continue bronchodilators and pulmonary toilet - VAP bundle addressed - continue prn IV metorolol - continue metoprolol and amlodipine (hold for hypotension) - continue to follow electrolytes and correct as necessary - continue GI & VTE prophylaxis - Continue flu & pneumovax per protocol - ethics consult placed .....she remains critically ill on life sustaining interventions including MVS and at risk for further deterioration including ....38' CCT today without overlap ....care plan discussed at length during team rounds ...long term care social worker prognosis remains guarded and this has intermittently been conveyed to family Subjective Date of service: 01/11/17 Principal diagnosis: Acute resp failure on MVS; S/P Acute CVA; Acute Encephalopathy; JUANITA Interval history: Patient is seen today for: Acute resp failure on MVS; S/P Acute CVA; Acute Encephalopathy; JUANITA Seen and examined at bedside; 24hour events reviewed; nursing and respiratory care staff consulted; no adverse overnight events reported to me; silvia remains critically ill and is not tolerating weaning well; CT abd and pelvis reveals large R>L free flowing pleural effusions; also intra-abdominal fluid collections; AMS is persistent Objective Vital Signs - 12hr 01/11/17 01/11/17 01/11/17 00:00 00:07 00:30 Temperature 98.8 F Pulse Rate 97 H 96 H 99 H Pulse Rate [ Bilateral Throughout] Pulse Rate [ 84 From Monitor] Respiratory 24 18 Rate Respiratory Rate [Bilateral Throughout] Blood Pressure 121/74 96/59 119/71 O2 Sat by Pulse 99 99 Oximetry O2 Sat by Pulse Oximetry [ Bilateral Throughout] 01/11/17 01/11/17 01/11/17 01:00 01:30 01:48 Temperature Pulse Rate 97 H 98 H Pulse Rate [ 99 H Bilateral Throughout] Pulse Rate [ From Monitor] Respiratory 16 22 Rate Respiratory 12 Rate [Bilateral Throughout] Blood Pressure 124/67 100/61 O2 Sat by Pulse 100 99 Oximetry O2 Sat by Pulse Oximetry [ Bilateral Throughout] 01/11/17 01/11/17 01/11/17 01:55 02:00 02:30 Temperature Pulse Rate 106 H 105 H Pulse Rate [ 103 H Bilateral Throughout] Pulse Rate [ From Monitor] Respiratory 28 H 27 H Rate Respiratory 12 Rate [Bilateral Throughout] Blood Pressure 126/73 124/68 O2 Sat by Pulse 99 99 Oximetry O2 Sat by Pulse Oximetry [ Bilateral Throughout] 01/11/17 01/11/17 01/11/17 03:00 03:30 04:00 Temperature 98.6 F Pulse Rate 106 H 108 H 114 H Pulse Rate [ Bilateral Throughout] Pulse Rate [ From Monitor] Respiratory 26 H 27 H 16 Rate Respiratory Rate [Bilateral Throughout] Blood Pressure 110/62 115/62 110/58 O2 Sat by Pulse 98 98 100 Oximetry O2 Sat by Pulse Oximetry [ Bilateral Throughout] 01/11/17 01/11/17 01/11/17 04:30 04:49 05:00 Temperature Pulse Rate 110 H 99 H 107 H Pulse Rate [ Bilateral Throughout] Pulse Rate [ From Monitor] Respiratory 21 28 H Rate Respiratory Rate [Bilateral Throughout] Blood Pressure 106/57 103/54 107/59 O2 Sat by Pulse 99 99 95 Oximetry O2 Sat by Pulse Oximetry [ Bilateral Throughout] 01/11/17 01/11/17 01/11/17 05:26 05:30 06:00 Temperature Pulse Rate 107 H 106 H 108 H Pulse Rate [ Bilateral Throughout] Pulse Rate [ From Monitor] Respiratory 30 H 28 H Rate Respiratory Rate [Bilateral Throughout] Blood Pressure 112/62 107/66 115/67 O2 Sat by Pulse 94 96 Oximetry O2 Sat by Pulse Oximetry [ Bilateral Throughout] 01/11/17 01/11/17 01/11/17 06:30 07:00 07:30 Temperature Pulse Rate 111 H 109 H 110 H Pulse Rate [ Bilateral Throughout] Pulse Rate [ From Monitor] Respiratory 27 H 28 H 28 H Rate Respiratory Rate [Bilateral Throughout] Blood Pressure 121/77 109/61 114/54 O2 Sat by Pulse 96 98 97 Oximetry O2 Sat by Pulse Oximetry [ Bilateral Throughout] 01/11/17 01/11/17 01/11/17 08:44 08:47 08:52 Temperature Pulse Rate 111 H 107 H 111 H Pulse Rate [ Bilateral Throughout] Pulse Rate [ From Monitor] Respiratory 37 H Rate Respiratory Rate [Bilateral Throughout] Blood Pressure 129/72 110/64 110/64 O2 Sat by Pulse 100 100 100 Oximetry O2 Sat by Pulse Oximetry [ Bilateral Throughout] 01/11/17 01/11/17 01/11/17 08:55 09:00 09:03 Temperature 97.8 F Pulse Rate 109 H Pulse Rate [ 109 H 110 H Bilateral Throughout] Pulse Rate [ From Monitor] Respiratory 23 Rate Respiratory 22 18 Rate [Bilateral Throughout] Blood Pressure 119/67 O2 Sat by Pulse Oximetry O2 Sat by Pulse 100 Oximetry [ Bilateral Throughout] 01/11/17 01/11/17 01/11/17 09:15 09:30 09:45 Temperature Pulse Rate 109 H 110 H 109 H Pulse Rate [ Bilateral Throughout] Pulse Rate [ From Monitor] Respiratory Rate Respiratory Rate [Bilateral Throughout] Blood Pressure 119/67 100/62 107/57 O2 Sat by Pulse Oximetry O2 Sat by Pulse Oximetry [ Bilateral Throughout] 01/11/17 01/11/17 01/11/17 09:59 10:14 10:30 Temperature Pulse Rate 112 H 110 H 111 H Pulse Rate [ Bilateral Throughout] Pulse Rate [ From Monitor] Respiratory Rate Respiratory Rate [Bilateral Throughout] Blood Pressure 97/58 111/69 102/69 O2 Sat by Pulse Oximetry O2 Sat by Pulse Oximetry [ Bilateral Throughout] 01/11/17 01/11/17 01/11/17 10:45 11:00 11:15 Temperature Pulse Rate 110 H 110 H 115 H Pulse Rate [ Bilateral Throughout] Pulse Rate [ From Monitor] Respiratory Rate Respiratory Rate [Bilateral Throughout] Blood Pressure 103/62 100/70 106/75 O2 Sat by Pulse Oximetry O2 Sat by Pulse Oximetry [ Bilateral Throughout] 01/11/17 01/11/17 01/11/17 11:27 11:30 11:45 Temperature Pulse Rate 109 H 109 H 112 H Pulse Rate [ Bilateral Throughout] Pulse Rate [ From Monitor] Respiratory Rate Respiratory Rate [Bilateral Throughout] Blood Pressure 106/75 101/68 93/66 O2 Sat by Pulse 100 Oximetry O2 Sat by Pulse Oximetry [ Bilateral Throughout] Constitutional: appears uncomfortable, other (not tracking) Eyes: non-icteric, other (tracheostomy tube in midline of neck) ENT: oropharynx moist, oropharyngeal exudate pre Neck: supple, no lymphadenopathy, no JVD, other (no thyromegaly) Effort: mildly labored Ascultation: Bilateral: diminished breath sounds (bases), rhonchi (and referred upper airway sounds) Percussion: Bilateral: dull (bases) Cardiovascular: regular rate and rhythm, other (no rubs / murmurs) Gastrointestinal: hypoactive bowel sounds, soft, non-tender, non-distended, other (RLQ & LUQ stomas with colostomy bags) Integumentary: decubitus ulcer (sacral; stage 4 s/p surgical debridement), other (no rash; no cellulitis; poor turgor) Extremities: no cyanosis, pulses normal, no ischemia or petechiae, edema (1+ bilaterally) Neurologic: pupils equal and round, unable to assess, other (encephalopathic) Psychiatric: other (unable to assess) CBC and BMP: 01/12/17 04:30 01/12/17 04:30 ABG, PT/INR, D-dimer: ABG POC ABG pH 7.503 (7.35-7.45) H 12/19/16 09:36 ABG pH 7.450 pH Units (7.350-7.450) 12/05/16 Unknown POC ABG pCO2 30.1 (35-45) L 12/19/16 09:36 ABG pCO2 29.6 mm Hg 12/05/16 Unknown POC ABG pO2 85 (80-105) 12/19/16 09:36 ABG pO2 75.2 mm Hg (80.0-90.0) L 12/05/16 Unknown POC ABG HCO3 23.6 12/19/16 09:36 POC ABG Total CO2 25 12/19/16 09:36 POC ABG O2 Sat 97 12/19/16 09:36 ABG O2 Saturation 96.8 % (95.0-99.0) 12/05/16 Unknown PT/INR, D-dimer PT 16.1 Sec. (12.2-14.9) H 12/28/16 08:30 INR 1.23 (0.87-1.13) H 12/28/16 08:30 Abnormal lab findings: Abnormal Labs 09/03/16 09/03/16 09/03/16 00:03 00:10 00:10 WBC 13.9 H RBC 5.95 H Hgb Hct 44.0 H MCV 74 L MCH 22 L MCHC RDW 17.5 H Plt Count Lymph % (Auto) [place] % (Auto) Lymph # [place] # Baso # Seg Neutrophils % Seg Neuts % (Manual) Lymphocytes % (Manual) 54.0 H Monocytes % (Manual) Eosinophils % (Manual) Basophils % (Manual) Nucleated RBC % Seg Neutrophils # Seg Neutrophils # Man Lymphocytes # (Manual) 7.5 H Monocytes # (Manual) Eosinophils # (Manual) Basophils # (Manual) PT INR Fibrinogen dRVVT Confirm Interp Factor V Activity POC ABG pH POC ABG pCO2 POC ABG pO2 ABG pO2 ABG HCO3 ABG Base Excess ABG Hemoglobin Oxyhemoglobin Sodium Potassium 2.8 L* Chloride Carbon Dioxide 21 L BUN Creatinine 1.7 H Glucose 159 H POC Glucose 177 H Lactic Acid Calcium Phosphorus Magnesium Direct Bilirubin AST ALT Alkaline Phosphatase Lactate Dehydrogenase Troponin T C-Reactive Protein Total Protein Albumin Prealbumin Triglycerides Cholesterol LDL Cholesterol Direct HDL Cholesterol Urine pH Urine WBC (Auto) Urine Creatinine Urine Total Protein Fluid Total Protein Vancomycin Trough Rheumatoid Factor Complement C4 Miscellaneous Test Crossmatch 09/03/16 09/03/16 09/03/16 12:12 15:07 16:20 WBC RBC Hgb Hct MCV MCH MCHC RDW Plt Count Lymph % (Auto) [place] % (Auto) Lymph # [place] # Baso # Seg Neutrophils % Seg Neuts % (Manual) Lymphocytes % (Manual) Monocytes % (Manual) Eosinophils % (Manual) Basophils % (Manual) Nucleated RBC % Seg Neutrophils # Seg Neutrophils # Man Lymphocytes # (Manual) Monocytes # (Manual) Eosinophils # (Manual) Basophils # (Manual) PT INR Fibrinogen dRVVT Confirm Interp Factor V Activity POC ABG pH 7.452 H POC ABG pCO2 POC ABG pO2 ABG pO2 ABG HCO3 ABG Base Excess ABG Hemoglobin Oxyhemoglobin Sodium Potassium Chloride Carbon Dioxide BUN Creatinine Glucose POC Glucose 178 H Lactic Acid Calcium Phosphorus 2.20 L Magnesium 1.60 L Direct Bilirubin AST ALT Alkaline Phosphatase Lactate Dehydrogenase Troponin T C-Reactive Protein Total Protein Albumin Prealbumin Triglycerides Cholesterol LDL Cholesterol Direct HDL Cholesterol Urine pH Urine WBC (Auto) Urine Creatinine Urine Total Protein Fluid Total Protein Vancomycin Trough Rheumatoid Factor Complement C4 Miscellaneous Test Crossmatch 09/03/16 09/03/16 09/03/16 17:57 17:58 23:50 WBC RBC Hgb Hct MCV MCH MCHC RDW Plt Count Lymph % (Auto) [place] % (Auto) Lymph # [place] # Baso # Seg Neutrophils % Seg Neuts % (Manual) Lymphocytes % (Manual) Monocytes % (Manual) Eosinophils % (Manual) Basophils % (Manual) Nucleated RBC % Seg Neutrophils # Seg Neutrophils # Man Lymphocytes # (Manual) Monocytes # (Manual) Eosinophils # (Manual) Basophils # (Manual) PT INR Fibrinogen dRVVT Confirm Interp Factor V Activity POC ABG pH POC ABG pCO2 POC ABG pO2 ABG pO2 ABG HCO3 ABG Base Excess ABG Hemoglobin Oxyhemoglobin Sodium Potassium Chloride Carbon Dioxide BUN Creatinine Glucose POC Glucose 162 H 145 H Lactic Acid Calcium Phosphorus 2.30 L Magnesium Direct Bilirubin AST ALT Alkaline Phosphatase Lactate Dehydrogenase Troponin T C-Reactive Protein Total Protein Albumin Prealbumin Triglycerides Cholesterol LDL Cholesterol Direct HDL Cholesterol Urine pH Urine WBC (Auto) Urine Creatinine Urine Total Protein Fluid Total Protein Vancomycin Trough Rheumatoid Factor Complement C4 Miscellaneous Test Crossmatch 09/04/16 09/04/16 09/04/16 03:31 03:31 05:42 WBC RBC Hgb 9.7 L D Hct MCV 72 L MCH 23 L MCHC RDW 17.5 H Plt Count Lymph % (Auto) 11.1 L [place] % (Auto) Lymph # [place] # Baso # Seg Neutrophils % 84.3 H Seg Neuts % (Manual) Lymphocytes % (Manual) Monocytes % (Manual) Eosinophils % (Manual) Basophils % (Manual) Nucleated RBC % Seg Neutrophils # 8.9 H Seg Neutrophils # Man Lymphocytes # (Manual) Monocytes # (Manual) Eosinophils # (Manual) Basophils # (Manual) PT INR Fibrinogen dRVVT Confirm Interp Factor V Activity POC ABG pH POC ABG pCO2 POC ABG pO2 ABG pO2 ABG HCO3 ABG Base Excess ABG Hemoglobin Oxyhemoglobin Sodium 135 L Potassium 2.9 L* Chloride 97.2 L Carbon Dioxide 19 L BUN Creatinine 1.7 H Glucose 170 H POC Glucose 152 H Lactic Acid Calcium Phosphorus Magnesium Direct Bilirubin AST ALT Alkaline Phosphatase Lactate Dehydrogenase Troponin T C-Reactive Protein Total Protein Albumin Prealbumin Triglycerides 160 H Cholesterol LDL Cholesterol Direct HDL Cholesterol 31 L Urine pH Urine WBC (Auto) Urine Creatinine Urine Total Protein Fluid Total Protein Vancomycin Trough Rheumatoid Factor Complement C4 Miscellaneous Test Crossmatch 09/04/16 09/04/16 09/04/16 11:34 17:46 23:29 WBC RBC Hgb Hct MCV MCH MCHC RDW Plt Count Lymph % (Auto) [place] % (Auto) Lymph # [place] # Baso # Seg Neutrophils % Seg Neuts % (Manual) Lymphocytes % (Manual) Monocytes % (Manual) Eosinophils % (Manual) Basophils % (Manual) Nucleated RBC % Seg Neutrophils # Seg Neutrophils # Man Lymphocytes # (Manual) Monocytes # (Manual) Eosinophils # (Manual) Basophils # (Manual) PT INR Fibrinogen dRVVT Confirm Interp Factor V Activity POC ABG pH POC ABG pCO2 POC ABG pO2 ABG pO2 ABG HCO3 ABG Base Excess ABG Hemoglobin Oxyhemoglobin Sodium Potassium Chloride Carbon Dioxide BUN Creatinine Glucose POC Glucose 165 H 210 H 139 H Lactic Acid Calcium Phosphorus Magnesium Direct Bilirubin AST ALT Alkaline Phosphatase Lactate Dehydrogenase Troponin T C-Reactive Protein Total Protein Albumin Prealbumin Triglycerides Cholesterol LDL Cholesterol Direct HDL Cholesterol Urine pH Urine WBC (Auto) Urine Creatinine Urine Total Protein Fluid Total Protein Vancomycin Trough Rheumatoid Factor Complement C4 Miscellaneous Test Crossmatch 09/05/16 09/05/16 09/05/16 04:05 04:05 05:38 WBC RBC Hgb Hct MCV 76 L D MCH 23 L MCHC RDW 17.8 H Plt Count Lymph % (Auto) [place] % (Auto) Lymph # [place] # Baso # Seg Neutrophils % Seg Neuts % (Manual) Lymphocytes % (Manual) Monocytes % (Manual) Eosinophils % (Manual) Basophils % (Manual) Nucleated RBC % Seg Neutrophils # Seg Neutrophils # Man Lymphocytes # (Manual) Monocytes # (Manual) Eosinophils # (Manual) Basophils # (Manual) PT INR Fibrinogen dRVVT Confirm Interp Factor V Activity POC ABG pH POC ABG pCO2 POC ABG pO2 ABG pO2 ABG HCO3 ABG Base Excess ABG Hemoglobin Oxyhemoglobin Sodium 134 L Potassium Chloride Carbon Dioxide 18 L BUN Creatinine 1.8 H Glucose 192 H POC Glucose 175 H Lactic Acid Calcium Phosphorus Magnesium Direct Bilirubin AST ALT Alkaline Phosphatase Lactate Dehydrogenase Troponin T C-Reactive Protein Total Protein Albumin Prealbumin Triglycerides Cholesterol LDL Cholesterol Direct HDL Cholesterol Urine pH Urine WBC (Auto) Urine Creatinine Urine Total Protein Fluid Total Protein Vancomycin Trough Rheumatoid Factor Complement C4 Miscellaneous Test Crossmatch 09/05/16 09/05/16 09/05/16 11:38 17:48 23:22 WBC RBC Hgb Hct MCV MCH MCHC RDW Plt Count Lymph % (Auto) [place] % (Auto) Lymph # [place] # Baso # Seg Neutrophils % Seg Neuts % (Manual) Lymphocytes % (Manual) Monocytes % (Manual) Eosinophils % (Manual) Basophils % (Manual) Nucleated RBC % Seg Neutrophils # Seg Neutrophils # Man Lymphocytes # (Manual) Monocytes # (Manual) Eosinophils # (Manual) Basophils # (Manual) PT INR Fibrinogen dRVVT Confirm Interp Factor V Activity POC ABG pH POC ABG pCO2 POC ABG pO2 ABG pO2 ABG HCO3 ABG Base Excess ABG Hemoglobin Oxyhemoglobin Sodium Potassium Chloride Carbon Dioxide BUN Creatinine Glucose POC Glucose 164 H 186 H 195 H Lactic Acid Calcium Phosphorus Magnesium Direct Bilirubin AST ALT Alkaline Phosphatase Lactate Dehydrogenase Troponin T C-Reactive Protein Total Protein Albumin Prealbumin Triglycerides Cholesterol LDL Cholesterol Direct HDL Cholesterol Urine pH Urine WBC (Auto) Urine Creatinine Urine Total Protein Fluid Total Protein Vancomycin Trough Rheumatoid Factor Complement C4 Miscellaneous Test Crossmatch 09/06/16 09/06/16 09/06/16 04:12 05:59 07:32 WBC RBC Hgb Hct MCV MCH MCHC RDW Plt Count Lymph % (Auto) [place] % (Auto) Lymph # [place] # Baso # Seg Neutrophils % Seg Neuts % (Manual) Lymphocytes % (Manual) Monocytes % (Manual) Eosinophils % (Manual) Basophils % (Manual) Nucleated RBC % Seg Neutrophils # Seg Neutrophils # Man Lymphocytes # (Manual) Monocytes # (Manual) Eosinophils # (Manual) Basophils # (Manual) PT INR Fibrinogen dRVVT Confirm Interp Factor V Activity POC ABG pH 7.514 H POC ABG pCO2 29.1 L POC ABG pO2 72 L ABG pO2 ABG HCO3 ABG Base Excess ABG Hemoglobin Oxyhemoglobin Sodium 133 L Potassium 3.4 L Chloride 94.9 L Carbon Dioxide 19 L BUN 30 H Creatinine 2.1 H Glucose 139 H POC Glucose 146 H Lactic Acid Calcium Phosphorus Magnesium Direct Bilirubin AST ALT Alkaline Phosphatase Lactate Dehydrogenase Troponin T C-Reactive Protein Total Protein Albumin Prealbumin Triglycerides Cholesterol LDL Cholesterol Direct HDL Cholesterol Urine pH Urine WBC (Auto) Urine Creatinine Urine Total Protein Fluid Total Protein Vancomycin Trough Rheumatoid Factor Complement C4 Miscellaneous Test Crossmatch 09/06/16 09/06/16 09/06/16 11:57 17:58 19:02 WBC RBC Hgb Hct MCV MCH MCHC RDW Plt Count Lymph % (Auto) [place] % (Auto) Lymph # [place] # Baso # Seg Neutrophils % Seg Neuts % (Manual) Lymphocytes % (Manual) Monocytes % (Manual) Eosinophils % (Manual) Basophils % (Manual) Nucleated RBC % Seg Neutrophils # Seg Neutrophils # Man Lymphocytes # (Manual) Monocytes # (Manual) Eosinophils # (Manual) Basophils # (Manual) PT INR Fibrinogen dRVVT Confirm Interp Factor V Activity POC ABG pH 7.465 H POC ABG pCO2 32.0 L POC ABG pO2 ABG pO2 ABG HCO3 ABG Base Excess ABG Hemoglobin Oxyhemoglobin Sodium Potassium Chloride Carbon Dioxide BUN Creatinine Glucose POC Glucose 165 H 160 H Lactic Acid Calcium Phosphorus Magnesium Direct Bilirubin AST ALT Alkaline Phosphatase Lactate Dehydrogenase Troponin T C-Reactive Protein Total Protein Albumin Prealbumin Triglycerides Cholesterol LDL Cholesterol Direct HDL Cholesterol Urine pH Urine WBC (Auto) Urine Creatinine Urine Total Protein Fluid Total Protein Vancomycin Trough Rheumatoid Factor Complement C4 Miscellaneous Test Crossmatch 09/06/16 09/07/16 09/07/16 23:45 02:47 02:47 WBC RBC Hgb Hct MCV MCH MCHC RDW Plt Count Lymph % (Auto) [place] % (Auto) Lymph # [place] # Baso # Seg Neutrophils % Seg Neuts % (Manual) Lymphocytes % (Manual) Monocytes % (Manual) Eosinophils % (Manual) Basophils % (Manual) Nucleated RBC % Seg Neutrophils # Seg Neutrophils # Man Lymphocytes # (Manual) Monocytes # (Manual) Eosinophils # (Manual) Basophils # (Manual) PT INR Fibrinogen dRVVT Confirm Interp Factor V Activity POC ABG pH POC ABG pCO2 POC ABG pO2 ABG pO2 ABG HCO3 ABG Base Excess ABG Hemoglobin Oxyhemoglobin Sodium Potassium Chloride Carbon Dioxide BUN Creatinine Glucose POC Glucose 204 H Lactic Acid Calcium Phosphorus Magnesium Direct Bilirubin AST ALT Alkaline Phosphatase Lactate Dehydrogenase Troponin T C-Reactive Protein Total Protein Albumin Prealbumin Triglycerides Cholesterol LDL Cholesterol Direct HDL Cholesterol Urine pH Urine WBC (Auto) 68.0 H Urine Creatinine 106.1 H Urine Total Protein Fluid Total Protein Vancomycin Trough Rheumatoid Factor Complement C4 Miscellaneous Test Crossmatch 09/07/16 09/07/16 09/07/16 04:50 06:19 06:39 WBC RBC Hgb Hct MCV MCH MCHC RDW Plt Count Lymph % (Auto) [place] % (Auto) Lymph # [place] # Baso # Seg Neutrophils % Seg Neuts % (Manual) Lymphocytes % (Manual) Monocytes % (Manual) Eosinophils % (Manual) Basophils % (Manual) Nucleated RBC % Seg Neutrophils # Seg Neutrophils # Man Lymphocytes # (Manual) Monocytes # (Manual) Eosinophils # (Manual) Basophils # (Manual) PT INR Fibrinogen dRVVT Confirm Interp Factor V Activity POC ABG pH 7.457 H POC ABG pCO2 32.1 L POC ABG pO2 76 L ABG pO2 ABG HCO3 ABG Base Excess ABG Hemoglobin Oxyhemoglobin Sodium 132 L Potassium Chloride 94.7 L Carbon Dioxide BUN 53 H Creatinine 2.9 H Glucose 151 H POC Glucose 149 H Lactic Acid Calcium Phosphorus Magnesium Direct Bilirubin AST ALT Alkaline Phosphatase Lactate Dehydrogenase Troponin T C-Reactive Protein Total Protein Albumin Prealbumin Triglycerides Cholesterol LDL Cholesterol Direct HDL Cholesterol Urine pH Urine WBC (Auto) Urine Creatinine Urine Total Protein Fluid Total Protein Vancomycin Trough Rheumatoid Factor Complement C4 Miscellaneous Test Crossmatch 09/07/16 09/07/16 09/07/16 09:20 11:43 11:43 WBC 19.4 H RBC Hgb 8.3 L Hct 26.4 L D MCV 72 L D MCH 22 L MCHC RDW 17.9 H Plt Count Lymph % (Auto) 8.5 L [place] % (Auto) Lymph # [place] # 1.0 H Baso # Seg Neutrophils % 85.8 H Seg Neuts % (Manual) Lymphocytes % (Manual) Monocytes % (Manual) Eosinophils % (Manual) Basophils % (Manual) Nucleated RBC % Seg Neutrophils # 16.6 H Seg Neutrophils # Man Lymphocytes # (Manual) Monocytes # (Manual) Eosinophils # (Manual) Basophils # (Manual) PT INR Fibrinogen dRVVT Confirm Interp Factor V Activity POC ABG pH POC ABG pCO2 POC ABG pO2 ABG pO2 ABG HCO3 ABG Base Excess ABG Hemoglobin Oxyhemoglobin Sodium 134 L Potassium Chloride 97.2 L Carbon Dioxide 20 L BUN 58 H Creatinine 2.9 H Glucose 147 H POC Glucose Lactic Acid Calcium Phosphorus 2.40 L Magnesium 2.40 H Direct Bilirubin AST ALT Alkaline Phosphatase Lactate Dehydrogenase Troponin T C-Reactive Protein Total Protein 5.8 L Albumin 2.2 L Prealbumin Triglycerides Cholesterol LDL Cholesterol Direct HDL Cholesterol Urine pH Urine WBC (Auto) Urine Creatinine Urine Total Protein Fluid Total Protein Vancomycin Trough Rheumatoid Factor Complement C4 58 H Miscellaneous Test Crossmatch 09/07/16 09/07/16 09/07/16 11:50 16:00 17:31 WBC RBC Hgb Hct MCV MCH MCHC RDW Plt Count Lymph % (Auto) [place] % (Auto) Lymph # [place] # Baso # Seg Neutrophils % Seg Neuts % (Manual) Lymphocytes % (Manual) Monocytes % (Manual) Eosinophils % (Manual) Basophils % (Manual) Nucleated RBC % Seg Neutrophils # Seg Neutrophils # Man Lymphocytes # (Manual) Monocytes # (Manual) Eosinophils # (Manual) Basophils # (Manual) PT INR Fibrinogen dRVVT Confirm Interp Factor V Activity POC ABG pH POC ABG pCO2 POC ABG pO2 158 H ABG pO2 ABG HCO3 ABG Base Excess ABG Hemoglobin Oxyhemoglobin Sodium Potassium Chloride Carbon Dioxide BUN Creatinine Glucose POC Glucose 175 H Lactic Acid Calcium Phosphorus Magnesium Direct Bilirubin AST ALT Alkaline Phosphatase Lactate Dehydrogenase Troponin T C-Reactive Protein Total Protein Albumin Prealbumin Triglycerides Cholesterol LDL Cholesterol Direct HDL Cholesterol Urine pH Urine WBC (Auto) Urine Creatinine 66.3 H Urine Total Protein Fluid Total Protein Vancomycin Trough Rheumatoid Factor Complement C4 Miscellaneous Test Crossmatch 09/07/16 09/08/16 09/08/16 23:50 05:46 06:18 WBC 17.8 H RBC 3.58 L Hgb 8.1 L Hct 25.5 L MCV 71 L MCH 23 L MCHC RDW 18.4 H Plt Count Lymph % (Auto) [place] % (Auto) Lymph # [place] # Baso # Seg Neutrophils % Seg Neuts % (Manual) 92.0 H Lymphocytes % (Manual) 6.0 L Monocytes % (Manual) Eosinophils % (Manual) Basophils % (Manual) Nucleated RBC % Seg Neutrophils # Seg Neutrophils # Man 16.4 H Lymphocytes # (Manual) 1.1 L Monocytes # (Manual) Eosinophils # (Manual) Basophils # (Manual) PT INR Fibrinogen dRVVT Confirm Interp Factor V Activity POC ABG pH POC ABG pCO2 34.3 L POC ABG pO2 71 L ABG pO2 ABG HCO3 ABG Base Excess ABG Hemoglobin Oxyhemoglobin Sodium Potassium Chloride Carbon Dioxide BUN Creatinine Glucose POC Glucose 216 H Lactic Acid Calcium Phosphorus Magnesium Direct Bilirubin AST ALT Alkaline Phosphatase Lactate Dehydrogenase Troponin T C-Reactive Protein Total Protein Albumin Prealbumin Triglycerides Cholesterol LDL Cholesterol Direct HDL Cholesterol Urine pH Urine WBC (Auto) Urine Creatinine Urine Total Protein Fluid Total Protein Vancomycin Trough Rheumatoid Factor Complement C4 Miscellaneous Test Crossmatch 09/08/16 09/08/16 09/08/16 06:18 06:51 10:55 WBC RBC Hgb Hct MCV MCH MCHC RDW Plt Count Lymph % (Auto) [place] % (Auto) Lymph # [place] # Baso # Seg Neutrophils % Seg Neuts % (Manual) Lymphocytes % (Manual) Monocytes % (Manual) Eosinophils % (Manual) Basophils % (Manual) Nucleated RBC % Seg Neutrophils # Seg Neutrophils # Man Lymphocytes # (Manual) Monocytes # (Manual) Eosinophils # (Manual) Basophils # (Manual) PT INR Fibrinogen dRVVT Confirm Interp Factor V Activity POC ABG pH POC ABG pCO2 POC ABG pO2 ABG pO2 ABG HCO3 ABG Base Excess ABG Hemoglobin Oxyhemoglobin Sodium 133 L Potassium Chloride 96.9 L Carbon Dioxide 20 L BUN 63 H Creatinine 2.7 H Glucose 195 H POC Glucose 204 H 169 H Lactic Acid Calcium Phosphorus Magnesium Direct Bilirubin AST ALT Alkaline Phosphatase Lactate Dehydrogenase Troponin T C-Reactive Protein Total Protein Albumin Prealbumin Triglycerides Cholesterol LDL Cholesterol Direct HDL Cholesterol Urine pH Urine WBC (Auto) Urine Creatinine Urine Total Protein Fluid Total Protein Vancomycin Trough Rheumatoid Factor Complement C4 Miscellaneous Test Crossmatch 09/08/16 09/08/16 09/08/16 11:48 11:48 11:48 WBC RBC Hgb Hct MCV MCH MCHC RDW Plt Count Lymph % (Auto) [place] % (Auto) Lymph # [place] # Baso # Seg Neutrophils % Seg Neuts % (Manual) Lymphocytes % (Manual) Monocytes % (Manual) Eosinophils % (Manual) Basophils % (Manual) Nucleated RBC % Seg Neutrophils # Seg Neutrophils # Man Lymphocytes # (Manual) Monocytes # (Manual) Eosinophils # (Manual) Basophils # (Manual) PT INR Fibrinogen 750 H dRVVT Confirm Interp Factor V Activity POC ABG pH POC ABG pCO2 POC ABG pO2 ABG pO2 ABG HCO3 ABG Base Excess ABG Hemoglobin Oxyhemoglobin Sodium Potassium Chloride Carbon Dioxide BUN Creatinine Glucose POC Glucose Lactic Acid Calcium Phosphorus Magnesium Direct Bilirubin AST ALT Alkaline Phosphatase Lactate Dehydrogenase Troponin T C-Reactive Protein 15.70 H Total Protein Albumin Prealbumin Triglycerides Cholesterol LDL Cholesterol Direct HDL Cholesterol Urine pH Urine WBC (Auto) Urine Creatinine Urine Total Protein Fluid Total Protein Vancomycin Trough Rheumatoid Factor 24 H Complement C4 Miscellaneous Test Crossmatch 09/08/16 09/08/16 09/09/16 15:35 18:25 00:24 WBC RBC Hgb Hct MCV MCH MCHC RDW Plt Count Lymph % (Auto) [place] % (Auto) Lymph # [place] # Baso # Seg Neutrophils % Seg Neuts % (Manual) Lymphocytes % (Manual) Monocytes % (Manual) Eosinophils % (Manual) Basophils % (Manual) Nucleated RBC % Seg Neutrophils # Seg Neutrophils # Man Lymphocytes # (Manual) Monocytes # (Manual) Eosinophils # (Manual) Basophils # (Manual) PT INR Fibrinogen dRVVT Confirm Interp Factor V Activity 182 H POC ABG pH POC ABG pCO2 POC ABG pO2 ABG pO2 ABG HCO3 ABG Base Excess ABG Hemoglobin Oxyhemoglobin Sodium Potassium Chloride Carbon Dioxide BUN Creatinine Glucose POC Glucose 184 H 216 H Lactic Acid Calcium Phosphorus Magnesium Direct Bilirubin AST ALT Alkaline Phosphatase Lactate Dehydrogenase Troponin T C-Reactive Protein Total Protein Albumin Prealbumin Triglycerides Cholesterol LDL Cholesterol Direct HDL Cholesterol Urine pH Urine WBC (Auto) Urine Creatinine Urine Total Protein Fluid Total Protein Vancomycin Trough Rheumatoid Factor Complement C4 Miscellaneous Test Crossmatch 09/09/16 09/09/16 09/09/16 03:00 03:00 04:04 WBC 27.9 H RBC Hgb 8.7 L Hct 28.1 L MCV 72 L MCH 22 L MCHC RDW 18.4 H Plt Count 485 H Lymph % (Auto) [place] % (Auto) Lymph # [place] # Baso # Seg Neutrophils % Seg Neuts % (Manual) 77.0 H Lymphocytes % (Manual) 9.0 L Monocytes % (Manual) Eosinophils % (Manual) Basophils % (Manual) Nucleated RBC % Seg Neutrophils # Seg Neutrophils # Man 21.5 H Lymphocytes # (Manual) Monocytes # (Manual) 2.0 H Eosinophils # (Manual) Basophils # (Manual) PT INR Fibrinogen dRVVT Confirm Interp Factor V Activity POC ABG pH POC ABG pCO2 POC ABG pO2 121 H ABG pO2 ABG HCO3 ABG Base Excess ABG Hemoglobin Oxyhemoglobin Sodium 135 L Potassium Chloride 96.3 L Carbon Dioxide 21 L BUN 83 H Creatinine 3.0 H Glucose 135 H POC Glucose Lactic Acid Calcium Phosphorus Magnesium Direct Bilirubin AST ALT Alkaline Phosphatase Lactate Dehydrogenase Troponin T C-Reactive Protein Total Protein Albumin Prealbumin Triglycerides Cholesterol LDL Cholesterol Direct HDL Cholesterol Urine pH Urine WBC (Auto) Urine Creatinine Urine Total Protein Fluid Total Protein Vancomycin Trough Rheumatoid Factor Complement C4 Miscellaneous Test Crossmatch 09/09/16 09/09/16 09/09/16 05:41 11:55 14:13 WBC RBC Hgb Hct MCV MCH MCHC RDW Plt Count Lymph % (Auto) [place] % (Auto) Lymph # [place] # Baso # Seg Neutrophils % Seg Neuts % (Manual) Lymphocytes % (Manual) Monocytes % (Manual) Eosinophils % (Manual) Basophils % (Manual) Nucleated RBC % Seg Neutrophils # Seg Neutrophils # Man Lymphocytes # (Manual) Monocytes # (Manual) Eosinophils # (Manual) Basophils # (Manual) PT INR Fibrinogen dRVVT Confirm Interp Factor V Activity POC ABG pH POC ABG pCO2 POC ABG pO2 ABG pO2 ABG HCO3 ABG Base Excess ABG Hemoglobin Oxyhemoglobin Sodium Potassium Chloride Carbon Dioxide BUN Creatinine Glucose POC Glucose 155 H 186 H Lactic Acid Calcium Phosphorus Magnesium Direct Bilirubin AST ALT Alkaline Phosphatase Lactate Dehydrogenase Troponin T C-Reactive Protein Total Protein Albumin Prealbumin Triglycerides Cholesterol LDL Cholesterol Direct HDL Cholesterol Urine pH Urine WBC (Auto) 25.0 H Urine Creatinine Urine Total Protein Fluid Total Protein Vancomycin Trough Rheumatoid Factor Complement C4 Miscellaneous Test Crossmatch 09/09/16 09/09/16 09/10/16 17:33 23:13 05:09 WBC RBC Hgb Hct MCV MCH MCHC RDW Plt Count Lymph % (Auto) [place] % (Auto) Lymph # [place] # Baso # Seg Neutrophils % Seg Neuts % (Manual) Lymphocytes % (Manual) Monocytes % (Manual) Eosinophils % (Manual) Basophils % (Manual) Nucleated RBC % Seg Neutrophils # Seg Neutrophils # Man Lymphocytes # (Manual) Monocytes # (Manual) Eosinophils # (Manual) Basophils # (Manual) PT INR Fibrinogen dRVVT Confirm Interp Factor V Activity POC ABG pH POC ABG pCO2 POC ABG pO2 74 L ABG pO2 ABG HCO3 ABG Base Excess ABG Hemoglobin Oxyhemoglobin Sodium Potassium Chloride Carbon Dioxide BUN Creatinine Glucose POC Glucose 211 H 215 H Lactic Acid Calcium Phosphorus Magnesium Direct Bilirubin AST ALT Alkaline Phosphatase Lactate Dehydrogenase Troponin T C-Reactive Protein Total Protein Albumin Prealbumin Triglycerides Cholesterol LDL Cholesterol Direct HDL Cholesterol Urine pH Urine WBC (Auto) Urine Creatinine Urine Total Protein Fluid Total Protein Vancomycin Trough Rheumatoid Factor Complement C4 Miscellaneous Test Crossmatch 09/10/16 09/10/16 09/10/16 05:17 05:17 11:31 WBC 15.8 H RBC 3.25 L Hgb 7.3 L Hct 22.9 L MCV 71 L MCH 23 L MCHC RDW 18.4 H Plt Count Lymph % (Auto) [place] % (Auto) Lymph # [place] # Baso # Seg Neutrophils % Seg Neuts % (Manual) 91.0 H Lymphocytes % (Manual) 4.0 L Monocytes % (Manual) Eosinophils % (Manual) Basophils % (Manual) Nucleated RBC % Seg Neutrophils # Seg Neutrophils # Man 14.4 H Lymphocytes # (Manual) 0.6 L Monocytes # (Manual) Eosinophils # (Manual) Basophils # (Manual) PT INR Fibrinogen dRVVT Confirm Interp Factor V Activity POC ABG pH POC ABG pCO2 POC ABG pO2 ABG pO2 ABG HCO3 ABG Base Excess ABG Hemoglobin Oxyhemoglobin Sodium Potassium Chloride Carbon Dioxide 21 L BUN 93 H Creatinine 2.9 H Glucose 146 H POC Glucose 188 H Lactic Acid Calcium 8.1 L Phosphorus Magnesium Direct Bilirubin AST ALT Alkaline Phosphatase Lactate Dehydrogenase Troponin T C-Reactive Protein Total Protein Albumin Prealbumin Triglycerides Cholesterol LDL Cholesterol Direct HDL Cholesterol Urine pH Urine WBC (Auto) Urine Creatinine Urine Total Protein Fluid Total Protein Vancomycin Trough Rheumatoid Factor Complement C4 Miscellaneous Test Crossmatch 09/10/16 09/10/16 09/10/16 13:17 17:20 23:32 WBC RBC Hgb Hct MCV MCH MCHC RDW Plt Count Lymph % (Auto) [place] % (Auto) Lymph # [place] # Baso # Seg Neutrophils % Seg Neuts % (Manual) Lymphocytes % (Manual) Monocytes % (Manual) Eosinophils % (Manual) Basophils % (Manual) Nucleated RBC % Seg Neutrophils # Seg Neutrophils # Man Lymphocytes # (Manual) Monocytes # (Manual) Eosinophils # (Manual) Basophils # (Manual) PT INR Fibrinogen dRVVT Confirm Interp Factor V Activity POC ABG pH POC ABG pCO2 POC ABG pO2 ABG pO2 ABG HCO3 ABG Base Excess ABG Hemoglobin Oxyhemoglobin Sodium Potassium Chloride Carbon Dioxide BUN Creatinine Glucose POC Glucose 199 H 186 H Lactic Acid Calcium Phosphorus Magnesium Direct Bilirubin AST ALT Alkaline Phosphatase Lactate Dehydrogenase Troponin T C-Reactive Protein Total Protein Albumin Prealbumin Triglycerides Cholesterol LDL Cholesterol Direct HDL Cholesterol Urine pH Urine WBC (Auto) Urine Creatinine Urine Total Protein Fluid Total Protein Vancomycin Trough Rheumatoid Factor Complement C4 Miscellaneous Test Crossmatch See Detail 09/11/16 09/11/16 09/11/16 05:10 05:10 05:17 WBC 28.4 H RBC Hgb 9.2 L Hct 29.3 L D MCV 73 L MCH 23 L MCHC RDW 18.9 H Plt Count 452 H Lymph % (Auto) [place] % (Auto) Lymph # [place] # Baso # Seg Neutrophils % Seg Neuts % (Manual) 89.5 H Lymphocytes % (Manual) 2.0 L Monocytes % (Manual) Eosinophils % (Manual) Basophils % (Manual) Nucleated RBC % Seg Neutrophils # Seg Neutrophils # Man 25.4 H Lymphocytes # (Manual) 0.6 L Monocytes # (Manual) 1.3 H Eosinophils # (Manual) Basophils # (Manual) PT INR Fibrinogen dRVVT Confirm Interp Factor V Activity POC ABG pH POC ABG pCO2 POC ABG pO2 ABG pO2 ABG HCO3 ABG Base Excess ABG Hemoglobin Oxyhemoglobin Sodium 136 L Potassium Chloride Carbon Dioxide 18 L BUN 107 H Creatinine 2.6 H Glucose 187 H POC Glucose 230 H Lactic Acid Calcium 8.3 L Phosphorus Magnesium Direct Bilirubin AST ALT Alkaline Phosphatase Lactate Dehydrogenase Troponin T C-Reactive Protein Total Protein Albumin Prealbumin Triglycerides Cholesterol LDL Cholesterol Direct HDL Cholesterol Urine pH Urine WBC (Auto) Urine Creatinine Urine Total Protein Fluid Total Protein Vancomycin Trough Rheumatoid Factor Complement C4 Miscellaneous Test Crossmatch 09/11/16 09/11/16 09/11/16 05:55 12:02 17:32 WBC RBC Hgb Hct MCV MCH MCHC RDW Plt Count Lymph % (Auto) [place] % (Auto) Lymph # [place] # Baso # Seg Neutrophils % Seg Neuts % (Manual) Lymphocytes % (Manual) Monocytes % (Manual) Eosinophils % (Manual) Basophils % (Manual) Nucleated RBC % Seg Neutrophils # Seg Neutrophils # Man Lymphocytes # (Manual) Monocytes # (Manual) Eosinophils # (Manual) Basophils # (Manual) PT INR Fibrinogen dRVVT Confirm Interp Factor V Activity POC ABG pH POC ABG pCO2 33.8 L POC ABG pO2 ABG pO2 ABG HCO3 ABG Base Excess ABG Hemoglobin Oxyhemoglobin Sodium Potassium Chloride Carbon Dioxide BUN Creatinine Glucose POC Glucose 191 H 239 H Lactic Acid Calcium Phosphorus Magnesium Direct Bilirubin AST ALT Alkaline Phosphatase Lactate Dehydrogenase Troponin T C-Reactive Protein Total Protein Albumin Prealbumin Triglycerides Cholesterol LDL Cholesterol Direct HDL Cholesterol Urine pH Urine WBC (Auto) Urine Creatinine Urine Total Protein Fluid Total Protein Vancomycin Trough Rheumatoid Factor Complement C4 Miscellaneous Test Crossmatch 09/11/16 09/12/16 09/12/16 23:52 05:09 05:32 WBC RBC Hgb Hct MCV MCH MCHC RDW Plt Count Lymph % (Auto) [place] % (Auto) Lymph # [place] # Baso # Seg Neutrophils % Seg Neuts % (Manual) Lymphocytes % (Manual) Monocytes % (Manual) Eosinophils % (Manual) Basophils % (Manual) Nucleated RBC % Seg Neutrophils # Seg Neutrophils # Man Lymphocytes # (Manual) Monocytes # (Manual) Eosinophils # (Manual) Basophils # (Manual) PT INR Fibrinogen dRVVT Confirm Interp Factor V Activity POC ABG pH POC ABG pCO2 34.6 L POC ABG pO2 ABG pO2 ABG HCO3 ABG Base Excess ABG Hemoglobin Oxyhemoglobin Sodium Potassium Chloride Carbon Dioxide BUN Creatinine Glucose POC Glucose 265 H 184 H Lactic Acid Calcium Phosphorus Magnesium Direct Bilirubin AST ALT Alkaline Phosphatase Lactate Dehydrogenase Troponin T C-Reactive Protein Total Protein Albumin Prealbumin Triglycerides Cholesterol LDL Cholesterol Direct HDL Cholesterol Urine pH Urine WBC (Auto) Urine Creatinine Urine Total Protein Fluid Total Protein Vancomycin Trough Rheumatoid Factor Complement C4 Miscellaneous Test Crossmatch 09/12/16 09/12/16 09/12/16 06:45 06:45 07:22 WBC 31.7 H RBC 3.54 L Hgb 8.3 L Hct 25.9 L MCV 73 L MCH 23 L MCHC RDW 18.9 H Plt Count Lymph % (Auto) [place] % (Auto) Lymph # [place] # Baso # Seg Neutrophils % Seg Neuts % (Manual) 88.5 H Lymphocytes % (Manual) 4.5 L Monocytes % (Manual) Eosinophils % (Manual) Basophils % (Manual) Nucleated RBC % Seg Neutrophils # Seg Neutrophils # Man 28.1 H Lymphocytes # (Manual) Monocytes # (Manual) 1.0 H Eosinophils # (Manual) Basophils # (Manual) PT INR Fibrinogen dRVVT Confirm Interp Factor V Activity POC ABG pH POC ABG pCO2 POC ABG pO2 ABG pO2 ABG HCO3 ABG Base Excess ABG Hemoglobin Oxyhemoglobin Sodium Potassium Chloride Carbon Dioxide 20 L BUN 115 H Creatinine 2.7 H Glucose 165 H POC Glucose Lactic Acid Calcium 8.0 L Phosphorus Magnesium Direct Bilirubin AST ALT Alkaline Phosphatase Lactate Dehydrogenase Troponin T C-Reactive Protein Total Protein Albumin Prealbumin Triglycerides 217 H Cholesterol LDL Cholesterol Direct HDL Cholesterol Urine pH Urine WBC (Auto) Urine Creatinine Urine Total Protein Fluid Total Protein Vancomycin Trough Rheumatoid Factor Complement C4 Miscellaneous Test Crossmatch 09/12/16 09/12/16 09/12/16 07:22 09:59 12:21 WBC RBC Hgb Hct MCV MCH MCHC RDW Plt Count Lymph % (Auto) [place] % (Auto) Lymph # [place] # Baso # Seg Neutrophils % Seg Neuts % (Manual) Lymphocytes % (Manual) Monocytes % (Manual) Eosinophils % (Manual) Basophils % (Manual) Nucleated RBC % Seg Neutrophils # Seg Neutrophils # Man Lymphocytes # (Manual) Monocytes # (Manual) Eosinophils # (Manual) Basophils # (Manual) PT INR Fibrinogen dRVVT Confirm Interp Positive H Factor V Activity POC ABG pH POC ABG pCO2 POC ABG pO2 ABG pO2 ABG HCO3 ABG Base Excess ABG Hemoglobin Oxyhemoglobin Sodium Potassium Chloride Carbon Dioxide BUN Creatinine Glucose POC Glucose 224 H Lactic Acid Calcium Phosphorus Magnesium Direct Bilirubin AST ALT Alkaline Phosphatase Lactate Dehydrogenase Troponin T C-Reactive Protein 1.70 H Total Protein Albumin Prealbumin Triglycerides Cholesterol LDL Cholesterol Direct HDL Cholesterol Urine pH Urine WBC (Auto) Urine Creatinine Urine Total Protein Fluid Total Protein Vancomycin Trough Rheumatoid Factor Complement C4 Miscellaneous Test Crossmatch 09/12/16 09/12/16 09/13/16 16:51 23:28 04:00 WBC 45.0 H* RBC Hgb 9.4 L Hct MCV 75 L MCH 23 L MCHC RDW 19.0 H Plt Count 470 H Lymph % (Auto) [place] % (Auto) Lymph # [place] # Baso # Seg Neutrophils % Seg Neuts % (Manual) 89.0 H Lymphocytes % (Manual) 5.0 L Monocytes % (Manual) Eosinophils % (Manual) Basophils % (Manual) Nucleated RBC % Seg Neutrophils # Seg Neutrophils # Man 40.1 H Lymphocytes # (Manual) Monocytes # (Manual) Eosinophils # (Manual) Basophils # (Manual) PT INR Fibrinogen dRVVT Confirm Interp Factor V Activity POC ABG pH POC ABG pCO2 POC ABG pO2 ABG pO2 ABG HCO3 ABG Base Excess ABG Hemoglobin Oxyhemoglobin Sodium Potassium Chloride Carbon Dioxide BUN Creatinine Glucose POC Glucose 169 H 150 H Lactic Acid Calcium Phosphorus Magnesium Direct Bilirubin AST ALT Alkaline Phosphatase Lactate Dehydrogenase Troponin T C-Reactive Protein Total Protein Albumin Prealbumin Triglycerides Cholesterol LDL Cholesterol Direct HDL Cholesterol Urine pH Urine WBC (Auto) Urine Creatinine Urine Total Protein Fluid Total Protein Vancomycin Trough Rheumatoid Factor Complement C4 Miscellaneous Test Crossmatch 09/13/16 09/13/16 09/13/16 04:00 11:26 17:31 WBC RBC Hgb Hct MCV MCH MCHC RDW Plt Count Lymph % (Auto) [place] % (Auto) Lymph # [place] # Baso # Seg Neutrophils % Seg Neuts % (Manual) Lymphocytes % (Manual) Monocytes % (Manual) Eosinophils % (Manual) Basophils % (Manual) Nucleated RBC % Seg Neutrophils # Seg Neutrophils # Man Lymphocytes # (Manual) Monocytes # (Manual) Eosinophils # (Manual) Basophils # (Manual) PT INR Fibrinogen dRVVT Confirm Interp Factor V Activity POC ABG pH POC ABG pCO2 POC ABG pO2 ABG pO2 ABG HCO3 ABG Base Excess ABG Hemoglobin Oxyhemoglobin Sodium Potassium Chloride Carbon Dioxide 20 L BUN 116 H Creatinine 3.0 H Glucose 172 H POC Glucose 140 H 183 H Lactic Acid Calcium Phosphorus Magnesium Direct Bilirubin AST ALT Alkaline Phosphatase Lactate Dehydrogenase Troponin T C-Reactive Protein Total Protein 6.2 L Albumin 2.9 L Prealbumin Triglycerides Cholesterol LDL Cholesterol Direct HDL Cholesterol Urine pH Urine WBC (Auto) Urine Creatinine Urine Total Protein Fluid Total Protein Vancomycin Trough Rheumatoid Factor Complement C4 Miscellaneous Test Crossmatch 09/13/16 09/14/16 09/14/16 23:23 04:06 04:07 WBC 29.4 H RBC Hgb 8.9 L Hct 27.3 L MCV 75 L MCH 24 L MCHC RDW 19.1 H Plt Count Lymph % (Auto) [place] % (Auto) Lymph # [place] # Baso # Seg Neutrophils % Seg Neuts % (Manual) 84.0 H Lymphocytes % (Manual) 6.0 L Monocytes % (Manual) 9.0 H Eosinophils % (Manual) Basophils % (Manual) Nucleated RBC % Seg Neutrophils # Seg Neutrophils # Man 24.7 H Lymphocytes # (Manual) Monocytes # (Manual) 2.6 H Eosinophils # (Manual) Basophils # (Manual) PT INR Fibrinogen dRVVT Confirm Interp Factor V Activity POC ABG pH 7.342 L POC ABG pCO2 POC ABG pO2 116 H ABG pO2 ABG HCO3 ABG Base Excess ABG Hemoglobin Oxyhemoglobin Sodium Potassium Chloride Carbon Dioxide BUN Creatinine Glucose POC Glucose 154 H Lactic Acid Calcium Phosphorus Magnesium Direct Bilirubin AST ALT Alkaline Phosphatase Lactate Dehydrogenase Troponin T C-Reactive Protein Total Protein Albumin Prealbumin Triglycerides Cholesterol LDL Cholesterol Direct HDL Cholesterol Urine pH Urine WBC (Auto) Urine Creatinine Urine Total Protein Fluid Total Protein Vancomycin Trough Rheumatoid Factor Complement C4 Miscellaneous Test Crossmatch 09/14/16 09/14/16 09/14/16 04:07 05:29 12:19 WBC RBC Hgb Hct MCV MCH MCHC RDW Plt Count Lymph % (Auto) [place] % (Auto) Lymph # [place] # Baso # Seg Neutrophils % Seg Neuts % (Manual) Lymphocytes % (Manual) Monocytes % (Manual) Eosinophils % (Manual) Basophils % (Manual) Nucleated RBC % Seg Neutrophils # Seg Neutrophils # Man Lymphocytes # (Manual) Monocytes # (Manual) Eosinophils # (Manual) Basophils # (Manual) PT INR Fibrinogen dRVVT Confirm Interp Factor V Activity POC ABG pH POC ABG pCO2 POC ABG pO2 ABG pO2 ABG HCO3 ABG Base Excess ABG Hemoglobin Oxyhemoglobin Sodium 136 L Potassium Chloride Carbon Dioxide 18 L BUN 121 H Creatinine 2.8 H Glucose 214 H POC Glucose 239 H 181 H Lactic Acid Calcium Phosphorus Magnesium Direct Bilirubin AST ALT Alkaline Phosphatase Lactate Dehydrogenase Troponin T C-Reactive Protein Total Protein Albumin Prealbumin Triglycerides Cholesterol LDL Cholesterol Direct HDL Cholesterol Urine pH Urine WBC (Auto) Urine Creatinine Urine Total Protein Fluid Total Protein Vancomycin Trough Rheumatoid Factor Complement C4 Miscellaneous Test Crossmatch 09/14/16 09/14/16 09/15/16 18:12 23:37 05:00 WBC 26.1 H RBC 3.05 L Hgb 7.2 L Hct 22.9 L MCV 75 L MCH 24 L MCHC RDW 19.0 H Plt Count Lymph % (Auto) [place] % (Auto) Lymph # [place] # Baso # Seg Neutrophils % Seg Neuts % (Manual) Lymphocytes % (Manual) Monocytes % (Manual) Eosinophils % (Manual) Basophils % (Manual) Nucleated RBC % Seg Neutrophils # Seg Neutrophils # Man Lymphocytes # (Manual) Monocytes # (Manual) Eosinophils # (Manual) Basophils # (Manual) PT INR Fibrinogen dRVVT Confirm Interp Factor V Activity POC ABG pH POC ABG pCO2 POC ABG pO2 ABG pO2 ABG HCO3 ABG Base Excess ABG Hemoglobin Oxyhemoglobin Sodium Potassium Chloride Carbon Dioxide BUN Creatinine Glucose POC Glucose 266 H 154 H Lactic Acid Calcium Phosphorus Magnesium Direct Bilirubin AST ALT Alkaline Phosphatase Lactate Dehydrogenase Troponin T C-Reactive Protein Total Protein Albumin Prealbumin Triglycerides Cholesterol LDL Cholesterol Direct HDL Cholesterol Urine pH Urine WBC (Auto) Urine Creatinine Urine Total Protein Fluid Total Protein Vancomycin Trough Rheumatoid Factor Complement C4 Miscellaneous Test Crossmatch 09/15/16 09/15/16 09/15/16 05:00 05:17 12:45 WBC RBC Hgb Hct MCV MCH MCHC RDW Plt Count Lymph % (Auto) [place] % (Auto) Lymph # [place] # Baso # Seg Neutrophils % Seg Neuts % (Manual) Lymphocytes % (Manual) Monocytes % (Manual) Eosinophils % (Manual) Basophils % (Manual) Nucleated RBC % Seg Neutrophils # Seg Neutrophils # Man Lymphocytes # (Manual) Monocytes # (Manual) Eosinophils # (Manual) Basophils # (Manual) PT INR Fibrinogen dRVVT Confirm Interp Factor V Activity POC ABG pH POC ABG pCO2 POC ABG pO2 ABG pO2 ABG HCO3 ABG Base Excess ABG Hemoglobin Oxyhemoglobin Sodium Potassium 5.2 H Chloride Carbon Dioxide 18 L BUN 139 H Creatinine 3.7 H Glucose 227 H POC Glucose 226 H 244 H Lactic Acid Calcium 8.3 L Phosphorus Magnesium Direct Bilirubin AST ALT Alkaline Phosphatase Lactate Dehydrogenase Troponin T C-Reactive Protein Total Protein Albumin Prealbumin Triglycerides Cholesterol LDL Cholesterol Direct HDL Cholesterol Urine pH Urine WBC (Auto) Urine Creatinine Urine Total Protein Fluid Total Protein Vancomycin Trough Rheumatoid Factor Complement C4 Miscellaneous Test Crossmatch 09/15/16 09/15/16 09/15/16 14:32 17:33 23:35 WBC RBC Hgb Hct MCV MCH MCHC RDW Plt Count Lymph % (Auto) [place] % (Auto) Lymph # [place] # Baso # Seg Neutrophils % Seg Neuts % (Manual) Lymphocytes % (Manual) Monocytes % (Manual) Eosinophils % (Manual) Basophils % (Manual) Nucleated RBC % Seg Neutrophils # Seg Neutrophils # Man Lymphocytes # (Manual) Monocytes # (Manual) Eosinophils # (Manual) Basophils # (Manual) PT INR Fibrinogen dRVVT Confirm Interp Factor V Activity POC ABG pH POC ABG pCO2 27.7 L POC ABG pO2 120 H ABG pO2 ABG HCO3 ABG Base Excess ABG Hemoglobin Oxyhemoglobin Sodium Potassium Chloride Carbon Dioxide BUN Creatinine Glucose POC Glucose 232 H 167 H Lactic Acid Calcium Phosphorus Magnesium Direct Bilirubin AST ALT Alkaline Phosphatase Lactate Dehydrogenase Troponin T C-Reactive Protein Total Protein Albumin Prealbumin Triglycerides Cholesterol LDL Cholesterol Direct HDL Cholesterol Urine pH Urine WBC (Auto) Urine Creatinine Urine Total Protein Fluid Total Protein Vancomycin Trough Rheumatoid Factor Complement C4 Miscellaneous Test Crossmatch 09/16/16 09/16/16 09/16/16 03:58 10:27 10:27 WBC 19.0 H RBC 2.77 L Hgb 6.5 L Hct 20.9 L MCV 76 L MCH 23 L MCHC RDW 19.3 H Plt Count Lymph % (Auto) 11.0 L [place] % (Auto) Lymph # [place] # 1.1 H Baso # Seg Neutrophils % 82.5 H Seg Neuts % (Manual) Lymphocytes % (Manual) Monocytes % (Manual) Eosinophils % (Manual) Basophils % (Manual) Nucleated RBC % Seg Neutrophils # 15.7 H Seg Neutrophils # Man Lymphocytes # (Manual) Monocytes # (Manual) Eosinophils # (Manual) Basophils # (Manual) PT INR Fibrinogen dRVVT Confirm Interp Factor V Activity POC ABG pH POC ABG pCO2 POC ABG pO2 ABG pO2 ABG HCO3 ABG Base Excess ABG Hemoglobin Oxyhemoglobin Sodium Potassium Chloride 109.3 H Carbon Dioxide 18 L BUN 139 H Creatinine 4.1 H Glucose 144 H POC Glucose 146 H Lactic Acid Calcium 8.1 L Phosphorus Magnesium Direct Bilirubin AST ALT Alkaline Phosphatase Lactate Dehydrogenase Troponin T C-Reactive Protein Total Protein Albumin Prealbumin Triglycerides Cholesterol LDL Cholesterol Direct HDL Cholesterol Urine pH Urine WBC (Auto) Urine Creatinine Urine Total Protein Fluid Total Protein Vancomycin Trough Rheumatoid Factor Complement C4 Miscellaneous Test Crossmatch 09/16/16 09/16/16 09/16/16 12:04 12:10 13:55 WBC RBC Hgb Hct MCV MCH MCHC RDW Plt Count Lymph % (Auto) [place] % (Auto) Lymph # [place] # Baso # Seg Neutrophils % Seg Neuts % (Manual) Lymphocytes % (Manual) Monocytes % (Manual) Eosinophils % (Manual) Basophils % (Manual) Nucleated RBC % Seg Neutrophils # Seg Neutrophils # Man Lymphocytes # (Manual) Monocytes # (Manual) Eosinophils # (Manual) Basophils # (Manual) PT INR Fibrinogen dRVVT Confirm Interp Factor V Activity POC ABG pH POC ABG pCO2 32.9 L POC ABG pO2 ABG pO2 ABG HCO3 ABG Base Excess ABG Hemoglobin Oxyhemoglobin Sodium Potassium Chloride Carbon Dioxide BUN Creatinine Glucose POC Glucose 185 H Lactic Acid Calcium Phosphorus Magnesium Direct Bilirubin AST ALT Alkaline Phosphatase Lactate Dehydrogenase Troponin T C-Reactive Protein Total Protein Albumin Prealbumin Triglycerides Cholesterol LDL Cholesterol Direct HDL Cholesterol Urine pH Urine WBC (Auto) Urine Creatinine Urine Total Protein Fluid Total Protein Vancomycin Trough Rheumatoid Factor Complement C4 Miscellaneous Test Crossmatch See Detail 09/16/16 09/16/16 09/16/16 17:55 19:19 23:48 WBC RBC Hgb Hct MCV MCH MCHC RDW Plt Count Lymph % (Auto) [place] % (Auto) Lymph # [place] # Baso # Seg Neutrophils % Seg Neuts % (Manual) Lymphocytes % (Manual) Monocytes % (Manual) Eosinophils % (Manual) Basophils % (Manual) Nucleated RBC % Seg Neutrophils # Seg Neutrophils # Man Lymphocytes # (Manual) Monocytes # (Manual) Eosinophils # (Manual) Basophils # (Manual) PT INR Fibrinogen dRVVT Confirm Interp Factor V Activity POC ABG pH POC ABG pCO2 POC ABG pO2 ABG pO2 ABG HCO3 ABG Base Excess ABG Hemoglobin Oxyhemoglobin Sodium Potassium Chloride Carbon Dioxide BUN Creatinine Glucose POC Glucose 222 H 107 H Lactic Acid Calcium Phosphorus Magnesium Direct Bilirubin AST ALT Alkaline Phosphatase Lactate Dehydrogenase Troponin T C-Reactive Protein Total Protein Albumin Prealbumin Triglycerides Cholesterol LDL Cholesterol Direct HDL Cholesterol Urine pH Urine WBC (Auto) Urine Creatinine 47.4 H Urine Total Protein 16 H Fluid Total Protein Vancomycin Trough Rheumatoid Factor Complement C4 Miscellaneous Test Crossmatch 09/17/16 09/17/16 09/17/16 03:45 03:45 04:55 WBC 19.6 H RBC 3.41 L Hgb 8.5 L Hct 26.7 L MCV 78 L MCH 25 L MCHC RDW 19.9 H Plt Count Lymph % (Auto) 9.3 L [place] % (Auto) Lymph # [place] # 1.2 H Baso # Seg Neutrophils % 83.9 H Seg Neuts % (Manual) Lymphocytes % (Manual) Monocytes % (Manual) Eosinophils % (Manual) Basophils % (Manual) Nucleated RBC % Seg Neutrophils # 16.4 H Seg Neutrophils # Man Lymphocytes # (Manual) Monocytes # (Manual) Eosinophils # (Manual) Basophils # (Manual) PT INR Fibrinogen dRVVT Confirm Interp Factor V Activity POC ABG pH POC ABG pCO2 POC ABG pO2 ABG pO2 ABG HCO3 ABG Base Excess ABG Hemoglobin Oxyhemoglobin Sodium 146 H Potassium 5.1 H Chloride 110.9 H Carbon Dioxide 16 L BUN 146 H Creatinine 4.0 H Glucose 108 H POC Glucose 133 H Lactic Acid Calcium Phosphorus Magnesium 3.00 H Direct Bilirubin AST ALT Alkaline Phosphatase Lactate Dehydrogenase Troponin T C-Reactive Protein Total Protein Albumin Prealbumin Triglycerides Cholesterol LDL Cholesterol Direct HDL Cholesterol Urine pH Urine WBC (Auto) Urine Creatinine Urine Total Protein Fluid Total Protein Vancomycin Trough Rheumatoid Factor Complement C4 Miscellaneous Test Crossmatch 09/17/16 09/17/16 09/17/16 11:15 17:33 23:47 WBC RBC Hgb Hct MCV MCH MCHC RDW Plt Count Lymph % (Auto) [place] % (Auto) Lymph # [place] # Baso # Seg Neutrophils % Seg Neuts % (Manual) Lymphocytes % (Manual) Monocytes % (Manual) Eosinophils % (Manual) Basophils % (Manual) Nucleated RBC % Seg Neutrophils # Seg Neutrophils # Man Lymphocytes # (Manual) Monocytes # (Manual) Eosinophils # (Manual) Basophils # (Manual) PT INR Fibrinogen dRVVT Confirm Interp Factor V Activity POC ABG pH POC ABG pCO2 POC ABG pO2 ABG pO2 ABG HCO3 ABG Base Excess ABG Hemoglobin Oxyhemoglobin Sodium Potassium Chloride Carbon Dioxide BUN Creatinine Glucose POC Glucose 176 H 246 H 148 H Lactic Acid Calcium Phosphorus Magnesium Direct Bilirubin AST ALT Alkaline Phosphatase Lactate Dehydrogenase Troponin T C-Reactive Protein Total Protein Albumin Prealbumin Triglycerides Cholesterol LDL Cholesterol Direct HDL Cholesterol Urine pH Urine WBC (Auto) Urine Creatinine Urine Total Protein Fluid Total Protein Vancomycin Trough Rheumatoid Factor Complement C4 Miscellaneous Test Crossmatch 09/18/16 09/18/16 09/18/16 05:33 08:31 08:31 WBC 18.0 H RBC 3.17 L Hgb 9.0 L Hct 25.7 L MCV MCH MCHC 35 H RDW 20.4 H Plt Count Lymph % (Auto) [place] % (Auto) Lymph # [place] # Baso # Seg Neutrophils % Seg Neuts % (Manual) Lymphocytes % (Manual) Monocytes % (Manual) Eosinophils % (Manual) Basophils % (Manual) Nucleated RBC % Seg Neutrophils # Seg Neutrophils # Man Lymphocytes # (Manual) Monocytes # (Manual) Eosinophils # (Manual) Basophils # (Manual) PT INR Fibrinogen dRVVT Confirm Interp Factor V Activity POC ABG pH POC ABG pCO2 POC ABG pO2 ABG pO2 ABG HCO3 ABG Base Excess ABG Hemoglobin Oxyhemoglobin Sodium Potassium Chloride Carbon Dioxide 15 L BUN 124 H Creatinine 3.8 H Glucose POC Glucose 120 H Lactic Acid Calcium 8.1 L Phosphorus Magnesium Direct Bilirubin AST ALT Alkaline Phosphatase Lactate Dehydrogenase Troponin T C-Reactive Protein Total Protein Albumin Prealbumin Triglycerides Cholesterol LDL Cholesterol Direct HDL Cholesterol Urine pH Urine WBC (Auto) Urine Creatinine Urine Total Protein Fluid Total Protein Vancomycin Trough Rheumatoid Factor Complement C4 Miscellaneous Test Crossmatch 09/18/16 09/18/16 09/18/16 12:03 15:34 17:50 WBC RBC Hgb Hct MCV MCH MCHC RDW Plt Count Lymph % (Auto) [place] % (Auto) Lymph # [place] # Baso # Seg Neutrophils % Seg Neuts % (Manual) Lymphocytes % (Manual) Monocytes % (Manual) Eosinophils % (Manual) Basophils % (Manual) Nucleated RBC % Seg Neutrophils # Seg Neutrophils # Man Lymphocytes # (Manual) Monocytes # (Manual) Eosinophils # (Manual) Basophils # (Manual) PT INR Fibrinogen dRVVT Confirm Interp Factor V Activity POC ABG pH POC ABG pCO2 25.7 L POC ABG pO2 66 L ABG pO2 ABG HCO3 ABG Base Excess ABG Hemoglobin Oxyhemoglobin Sodium Potassium Chloride Carbon Dioxide BUN Creatinine Glucose POC Glucose 156 H 220 H Lactic Acid Calcium Phosphorus Magnesium Direct Bilirubin AST ALT Alkaline Phosphatase Lactate Dehydrogenase Troponin T C-Reactive Protein Total Protein Albumin Prealbumin Triglycerides Cholesterol LDL Cholesterol Direct HDL Cholesterol Urine pH Urine WBC (Auto) Urine Creatinine Urine Total Protein Fluid Total Protein Vancomycin Trough Rheumatoid Factor Complement C4 Miscellaneous Test Crossmatch 09/19/16 09/19/16 09/19/16 06:21 09:50 09:50 WBC 17.1 H RBC 3.49 L Hgb 9.0 L Hct 28.1 L MCV MCH 26 L MCHC RDW 20.8 H Plt Count Lymph % (Auto) 11.5 L [place] % (Auto) 7.5 H Lymph # [place] # 1.3 H Baso # Seg Neutrophils % 79.8 H Seg Neuts % (Manual) Lymphocytes % (Manual) Monocytes % (Manual) Eosinophils % (Manual) Basophils % (Manual) Nucleated RBC % Seg Neutrophils # 13.7 H Seg Neutrophils # Man Lymphocytes # (Manual) Monocytes # (Manual) Eosinophils # (Manual) Basophils # (Manual) PT INR Fibrinogen dRVVT Confirm Interp Factor V Activity POC ABG pH POC ABG pCO2 POC ABG pO2 ABG pO2 ABG HCO3 ABG Base Excess ABG Hemoglobin Oxyhemoglobin Sodium Potassium Chloride 108.6 H Carbon Dioxide 15 L BUN 125 H Creatinine 4.1 H Glucose 124 H POC Glucose 119 H Lactic Acid Calcium Phosphorus Magnesium Direct Bilirubin AST ALT Alkaline Phosphatase Lactate Dehydrogenase Troponin T C-Reactive Protein Total Protein Albumin Prealbumin Triglycerides Cholesterol LDL Cholesterol Direct HDL Cholesterol Urine pH Urine WBC (Auto) Urine Creatinine Urine Total Protein Fluid Total Protein Vancomycin Trough Rheumatoid Factor Complement C4 Miscellaneous Test Crossmatch 09/19/16 09/19/16 09/19/16 11:25 17:53 23:36 WBC RBC Hgb Hct MCV MCH MCHC RDW Plt Count Lymph % (Auto) [place] % (Auto) Lymph # [place] # Baso # Seg Neutrophils % Seg Neuts % (Manual) Lymphocytes % (Manual) Monocytes % (Manual) Eosinophils % (Manual) Basophils % (Manual) Nucleated RBC % Seg Neutrophils # Seg Neutrophils # Man Lymphocytes # (Manual) Monocytes # (Manual) Eosinophils # (Manual) Basophils # (Manual) PT INR Fibrinogen dRVVT Confirm Interp Factor V Activity POC ABG pH POC ABG pCO2 POC ABG pO2 ABG pO2 ABG HCO3 ABG Base Excess ABG Hemoglobin Oxyhemoglobin Sodium Potassium Chloride Carbon Dioxide BUN Creatinine Glucose POC Glucose 160 H 245 H 121 H Lactic Acid Calcium Phosphorus Magnesium Direct Bilirubin AST ALT Alkaline Phosphatase Lactate Dehydrogenase Troponin T C-Reactive Protein Total Protein Albumin Prealbumin Triglycerides Cholesterol LDL Cholesterol Direct HDL Cholesterol Urine pH Urine WBC (Auto) Urine Creatinine Urine Total Protein Fluid Total Protein Vancomycin Trough Rheumatoid Factor Complement C4 Miscellaneous Test Crossmatch 09/20/16 09/20/16 09/20/16 04:10 04:10 04:10 WBC 17.0 H RBC 3.21 L Hgb 8.2 L Hct 25.5 L MCV MCH 26 L MCHC RDW 20.9 H Plt Count Lymph % (Auto) [place] % (Auto) Lymph # [place] # Baso # Seg Neutrophils % Seg Neuts % (Manual) Lymphocytes % (Manual) Monocytes % (Manual) Eosinophils % (Manual) Basophils % (Manual) Nucleated RBC % Seg Neutrophils # Seg Neutrophils # Man Lymphocytes # (Manual) Monocytes # (Manual) Eosinophils # (Manual) Basophils # (Manual) PT INR Fibrinogen dRVVT Confirm Interp Factor V Activity POC ABG pH POC ABG pCO2 POC ABG pO2 ABG pO2 ABG HCO3 ABG Base Excess ABG Hemoglobin Oxyhemoglobin Sodium Potassium Chloride 111.0 H Carbon Dioxide 16 L BUN 129 H Creatinine 3.7 H Glucose 115 H POC Glucose Lactic Acid Calcium 8.2 L Phosphorus Magnesium Direct Bilirubin AST ALT Alkaline Phosphatase Lactate Dehydrogenase Troponin T C-Reactive Protein Total Protein Albumin Prealbumin Triglycerides 243 H Cholesterol LDL Cholesterol Direct HDL Cholesterol Urine pH Urine WBC (Auto) Urine Creatinine Urine Total Protein Fluid Total Protein Vancomycin Trough Rheumatoid Factor Complement C4 Miscellaneous Test Crossmatch 09/20/16 09/20/16 09/20/16 05:40 11:52 16:50 WBC RBC Hgb Hct MCV MCH MCHC RDW Plt Count Lymph % (Auto) [place] % (Auto) Lymph # [place] # Baso # Seg Neutrophils % Seg Neuts % (Manual) Lymphocytes % (Manual) Monocytes % (Manual) Eosinophils % (Manual) Basophils % (Manual) Nucleated RBC % Seg Neutrophils # Seg Neutrophils # Man Lymphocytes # (Manual) Monocytes # (Manual) Eosinophils # (Manual) Basophils # (Manual) PT INR Fibrinogen dRVVT Confirm Interp Factor V Activity POC ABG pH POC ABG pCO2 POC ABG pO2 ABG pO2 ABG HCO3 ABG Base Excess ABG Hemoglobin Oxyhemoglobin Sodium Potassium Chloride Carbon Dioxide BUN Creatinine Glucose POC Glucose 131 H 183 H 236 H Lactic Acid Calcium Phosphorus Magnesium Direct Bilirubin AST ALT Alkaline Phosphatase Lactate Dehydrogenase Troponin T C-Reactive Protein Total Protein Albumin Prealbumin Triglycerides Cholesterol LDL Cholesterol Direct HDL Cholesterol Urine pH Urine WBC (Auto) Urine Creatinine Urine Total Protein Fluid Total Protein Vancomycin Trough Rheumatoid Factor Complement C4 Miscellaneous Test Crossmatch 09/20/16 09/21/16 09/21/16 23:51 03:30 04:44 WBC RBC Hgb Hct MCV MCH MCHC RDW Plt Count Lymph % (Auto) [place] % (Auto) Lymph # [place] # Baso # Seg Neutrophils % Seg Neuts % (Manual) Lymphocytes % (Manual) Monocytes % (Manual) Eosinophils % (Manual) Basophils % (Manual) Nucleated RBC % Seg Neutrophils # Seg Neutrophils # Man Lymphocytes # (Manual) Monocytes # (Manual) Eosinophils # (Manual) Basophils # (Manual) PT INR Fibrinogen dRVVT Confirm Interp Factor V Activity POC ABG pH POC ABG pCO2 POC ABG pO2 ABG pO2 ABG HCO3 ABG Base Excess ABG Hemoglobin Oxyhemoglobin Sodium Potassium Chloride Carbon Dioxide BUN Creatinine Glucose POC Glucose 114 H 141 H Lactic Acid Calcium Phosphorus Magnesium 2.70 H Direct Bilirubin AST ALT Alkaline Phosphatase Lactate Dehydrogenase Troponin T C-Reactive Protein Total Protein Albumin Prealbumin Triglycerides Cholesterol LDL Cholesterol Direct HDL Cholesterol Urine pH Urine WBC (Auto) Urine Creatinine Urine Total Protein Fluid Total Protein Vancomycin Trough Rheumatoid Factor Complement C4 Miscellaneous Test Crossmatch 09/21/16 09/21/16 09/21/16 07:45 07:45 10:01 WBC 13.8 H RBC 2.94 L Hgb 7.5 L Hct 23.5 L MCV MCH 26 L MCHC RDW 21.2 H Plt Count Lymph % (Auto) 6.9 L [place] % (Auto) 9.4 H Lymph # 0.9 L [place] # 1.3 H Baso # Seg Neutrophils % 83.2 H Seg Neuts % (Manual) Lymphocytes % (Manual) Monocytes % (Manual) Eosinophils % (Manual) Basophils % (Manual) Nucleated RBC % Seg Neutrophils # 11.5 H Seg Neutrophils # Man Lymphocytes # (Manual) Monocytes # (Manual) Eosinophils # (Manual) Basophils # (Manual) PT INR Fibrinogen dRVVT Confirm Interp Factor V Activity POC ABG pH 7.308 L POC ABG pCO2 31.9 L POC ABG pO2 148 H ABG pO2 ABG HCO3 ABG Base Excess ABG Hemoglobin Oxyhemoglobin Sodium 147 H Potassium Chloride 114.2 H Carbon Dioxide 15 L BUN 120 H Creatinine 3.9 H Glucose 156 H POC Glucose Lactic Acid Calcium 8.2 L Phosphorus Magnesium Direct Bilirubin AST ALT Alkaline Phosphatase Lactate Dehydrogenase Troponin T C-Reactive Protein Total Protein Albumin Prealbumin Triglycerides Cholesterol LDL Cholesterol Direct HDL Cholesterol Urine pH Urine WBC (Auto) Urine Creatinine Urine Total Protein Fluid Total Protein Vancomycin Trough Rheumatoid Factor Complement C4 Miscellaneous Test Crossmatch 09/21/16 09/21/16 09/21/16 12:00 12:03 13:00 WBC RBC Hgb Hct MCV MCH MCHC RDW Plt Count Lymph % (Auto) [place] % (Auto) Lymph # [place] # Baso # Seg Neutrophils % Seg Neuts % (Manual) Lymphocytes % (Manual) Monocytes % (Manual) Eosinophils % (Manual) Basophils % (Manual) Nucleated RBC % Seg Neutrophils # Seg Neutrophils # Man Lymphocytes # (Manual) Monocytes # (Manual) Eosinophils # (Manual) Basophils # (Manual) PT INR Fibrinogen dRVVT Confirm Interp Factor V Activity POC ABG pH POC ABG pCO2 POC ABG pO2 ABG pO2 ABG HCO3 ABG Base Excess ABG Hemoglobin Oxyhemoglobin Sodium Potassium Chloride Carbon Dioxide BUN Creatinine Glucose POC Glucose 163 H Lactic Acid Calcium Phosphorus Magnesium Direct Bilirubin AST ALT Alkaline Phosphatase Lactate Dehydrogenase Troponin T C-Reactive Protein Total Protein Albumin Prealbumin Triglycerides Cholesterol LDL Cholesterol Direct HDL Cholesterol Urine pH Urine WBC (Auto) Urine Creatinine 54.8 H Urine Total Protein Fluid Total Protein Vancomycin Trough 2.3 L Rheumatoid Factor Complement C4 Miscellaneous Test Crossmatch 09/21/16 09/21/16 09/22/16 16:51 23:17 06:27 WBC RBC Hgb Hct MCV MCH MCHC RDW Plt Count Lymph % (Auto) [place] % (Auto) Lymph # [place] # Baso # Seg Neutrophils % Seg Neuts % (Manual) Lymphocytes % (Manual) Monocytes % (Manual) Eosinophils % (Manual) Basophils % (Manual) Nucleated RBC % Seg Neutrophils # Seg Neutrophils # Man Lymphocytes # (Manual) Monocytes # (Manual) Eosinophils # (Manual) Basophils # (Manual) PT INR Fibrinogen dRVVT Confirm Interp Factor V Activity POC ABG pH POC ABG pCO2 POC ABG pO2 ABG pO2 ABG HCO3 ABG Base Excess ABG Hemoglobin Oxyhemoglobin Sodium Potassium Chloride Carbon Dioxide BUN Creatinine Glucose POC Glucose 206 H 114 H 115 H Lactic Acid Calcium Phosphorus Magnesium Direct Bilirubin AST ALT Alkaline Phosphatase Lactate Dehydrogenase Troponin T C-Reactive Protein Total Protein Albumin Prealbumin Triglycerides Cholesterol LDL Cholesterol Direct HDL Cholesterol Urine pH Urine WBC (Auto) Urine Creatinine Urine Total Protein Fluid Total Protein Vancomycin Trough Rheumatoid Factor Complement C4 Miscellaneous Test Crossmatch 09/22/16 09/22/16 09/22/16 07:50 07:50 12:00 WBC 17.8 H RBC 3.04 L Hgb 8.0 L Hct 24.7 L MCV MCH 26 L MCHC RDW 21.6 H Plt Count Lymph % (Auto) [place] % (Auto) Lymph # [place] # Baso # Seg Neutrophils % Seg Neuts % (Manual) Lymphocytes % (Manual) Monocytes % (Manual) Eosinophils % (Manual) Basophils % (Manual) Nucleated RBC % Seg Neutrophils # Seg Neutrophils # Man Lymphocytes # (Manual) Monocytes # (Manual) Eosinophils # (Manual) Basophils # (Manual) PT INR Fibrinogen dRVVT Confirm Interp Factor V Activity POC ABG pH POC ABG pCO2 POC ABG pO2 ABG pO2 ABG HCO3 ABG Base Excess ABG Hemoglobin Oxyhemoglobin Sodium 150 H Potassium Chloride 118.2 H Carbon Dioxide 14 L BUN 111 H Creatinine 3.7 H Glucose 157 H POC Glucose 183 H Lactic Acid Calcium Phosphorus Magnesium Direct Bilirubin AST ALT Alkaline Phosphatase Lactate Dehydrogenase Troponin T C-Reactive Protein Total Protein Albumin Prealbumin Triglycerides Cholesterol LDL Cholesterol Direct HDL Cholesterol Urine pH Urine WBC (Auto) Urine Creatinine Urine Total Protein Fluid Total Protein Vancomycin Trough Rheumatoid Factor Complement C4 Miscellaneous Test Crossmatch 09/22/16 09/22/16 09/23/16 17:29 23:10 05:00 WBC 19.2 H RBC 3.13 L Hgb 8.0 L Hct 25.2 L MCV MCH 26 L MCHC RDW 22.1 H Plt Count Lymph % (Auto) [place] % (Auto) Lymph # [place] # Baso # Seg Neutrophils % Seg Neuts % (Manual) 92.0 H Lymphocytes % (Manual) 3.0 L Monocytes % (Manual) Eosinophils % (Manual) Basophils % (Manual) Nucleated RBC % Seg Neutrophils # Seg Neutrophils # Man 17.7 H Lymphocytes # (Manual) 0.6 L Monocytes # (Manual) Eosinophils # (Manual) Basophils # (Manual) PT INR Fibrinogen dRVVT Confirm Interp Factor V Activity POC ABG pH POC ABG pCO2 POC ABG pO2 ABG pO2 ABG HCO3 ABG Base Excess ABG Hemoglobin Oxyhemoglobin Sodium Potassium Chloride Carbon Dioxide BUN Creatinine Glucose POC Glucose 197 H 169 H Lactic Acid Calcium Phosphorus Magnesium Direct Bilirubin AST ALT Alkaline Phosphatase Lactate Dehydrogenase Troponin T C-Reactive Protein Total Protein Albumin Prealbumin Triglycerides Cholesterol LDL Cholesterol Direct HDL Cholesterol Urine pH Urine WBC (Auto) Urine Creatinine Urine Total Protein Fluid Total Protein Vancomycin Trough Rheumatoid Factor Complement C4 Miscellaneous Test Crossmatch 09/23/16 09/23/16 09/23/16 05:00 05:00 05:10 WBC RBC Hgb Hct MCV MCH MCHC RDW Plt Count Lymph % (Auto) [place] % (Auto) Lymph # [place] # Baso # Seg Neutrophils % Seg Neuts % (Manual) Lymphocytes % (Manual) Monocytes % (Manual) Eosinophils % (Manual) Basophils % (Manual) Nucleated RBC % Seg Neutrophils # Seg Neutrophils # Man Lymphocytes # (Manual) Monocytes # (Manual) Eosinophils # (Manual) Basophils # (Manual) PT INR Fibrinogen dRVVT Confirm Interp Factor V Activity POC ABG pH POC ABG pCO2 POC ABG pO2 ABG pO2 ABG HCO3 ABG Base Excess ABG Hemoglobin Oxyhemoglobin Sodium 147 H Potassium 3.2 L Chloride 115.7 H Carbon Dioxide 13 L BUN 111 H Creatinine 3.8 H Glucose 194 H POC Glucose 188 H Lactic Acid Calcium 7.3 L D Phosphorus Magnesium Direct Bilirubin AST ALT Alkaline Phosphatase Lactate Dehydrogenase Troponin T C-Reactive Protein 3.20 H Total Protein Albumin Prealbumin Triglycerides Cholesterol LDL Cholesterol Direct HDL Cholesterol Urine pH Urine WBC (Auto) Urine Creatinine Urine Total Protein Fluid Total Protein Vancomycin Trough Rheumatoid Factor Complement C4 Miscellaneous Test Crossmatch 09/23/16 09/23/16 09/23/16 11:37 12:29 18:01 WBC RBC Hgb Hct MCV MCH MCHC RDW Plt Count Lymph % (Auto) [place] % (Auto) Lymph # [place] # Baso # Seg Neutrophils % Seg Neuts % (Manual) Lymphocytes % (Manual) Monocytes % (Manual) Eosinophils % (Manual) Basophils % (Manual) Nucleated RBC % Seg Neutrophils # Seg Neutrophils # Man Lymphocytes # (Manual) Monocytes # (Manual) Eosinophils # (Manual) Basophils # (Manual) PT INR Fibrinogen dRVVT Confirm Interp Factor V Activity POC ABG pH POC ABG pCO2 18.9 L POC ABG pO2 143 H ABG pO2 ABG HCO3 ABG Base Excess ABG Hemoglobin Oxyhemoglobin Sodium Potassium Chloride Carbon Dioxide BUN Creatinine Glucose POC Glucose 153 H 108 H Lactic Acid Calcium Phosphorus Magnesium Direct Bilirubin AST ALT Alkaline Phosphatase Lactate Dehydrogenase Troponin T C-Reactive Protein Total Protein Albumin Prealbumin Triglycerides Cholesterol LDL Cholesterol Direct HDL Cholesterol Urine pH Urine WBC (Auto) Urine Creatinine Urine Total Protein Fluid Total Protein Vancomycin Trough Rheumatoid Factor Complement C4 Miscellaneous Test Crossmatch 09/23/16 09/23/16 09/24/16 21:19 23:43 05:16 WBC RBC Hgb Hct MCV MCH MCHC RDW Plt Count Lymph % (Auto) [place] % (Auto) Lymph # [place] # Baso # Seg Neutrophils % Seg Neuts % (Manual) Lymphocytes % (Manual) Monocytes % (Manual) Eosinophils % (Manual) Basophils % (Manual) Nucleated RBC % Seg Neutrophils # Seg Neutrophils # Man Lymphocytes # (Manual) Monocytes # (Manual) Eosinophils # (Manual) Basophils # (Manual) PT INR Fibrinogen dRVVT Confirm Interp Factor V Activity POC ABG pH POC ABG pCO2 17.3 L POC ABG pO2 112 H ABG pO2 ABG HCO3 ABG Base Excess ABG Hemoglobin Oxyhemoglobin Sodium Potassium Chloride Carbon Dioxide BUN Creatinine Glucose POC Glucose 143 H 164 H Lactic Acid Calcium Phosphorus Magnesium Direct Bilirubin AST ALT Alkaline Phosphatase Lactate Dehydrogenase Troponin T C-Reactive Protein Total Protein Albumin Prealbumin Triglycerides Cholesterol LDL Cholesterol Direct HDL Cholesterol Urine pH Urine WBC (Auto) Urine Creatinine Urine Total Protein Fluid Total Protein Vancomycin Trough Rheumatoid Factor Complement C4 Miscellaneous Test Crossmatch 09/24/16 09/24/16 09/24/16 05:21 11:58 17:06 WBC RBC Hgb Hct MCV MCH MCHC RDW Plt Count Lymph % (Auto) [place] % (Auto) Lymph # [place] # Baso # Seg Neutrophils % Seg Neuts % (Manual) Lymphocytes % (Manual) Monocytes % (Manual) Eosinophils % (Manual) Basophils % (Manual) Nucleated RBC % Seg Neutrophils # Seg Neutrophils # Man Lymphocytes # (Manual) Monocytes # (Manual) Eosinophils # (Manual) Basophils # (Manual) PT INR Fibrinogen dRVVT Confirm Interp Factor V Activity POC ABG pH POC ABG pCO2 POC ABG pO2 ABG pO2 ABG HCO3 ABG Base Excess ABG Hemoglobin Oxyhemoglobin Sodium Potassium Chloride Carbon Dioxide 10 L BUN 103 H Creatinine 4.3 H Glucose 163 H POC Glucose 173 H 167 H Lactic Acid Calcium 6.5 L Phosphorus Magnesium Direct Bilirubin AST ALT Alkaline Phosphatase Lactate Dehydrogenase Troponin T C-Reactive Protein Total Protein Albumin Prealbumin Triglycerides Cholesterol LDL Cholesterol Direct HDL Cholesterol Urine pH Urine WBC (Auto) Urine Creatinine Urine Total Protein Fluid Total Protein Vancomycin Trough Rheumatoid Factor Complement C4 Miscellaneous Test Crossmatch 09/24/16 09/24/16 09/24/16 20:15 21:02 23:48 WBC RBC Hgb Hct MCV MCH MCHC RDW Plt Count Lymph % (Auto) [place] % (Auto) Lymph # [place] # Baso # Seg Neutrophils % Seg Neuts % (Manual) Lymphocytes % (Manual) Monocytes % (Manual) Eosinophils % (Manual) Basophils % (Manual) Nucleated RBC % Seg Neutrophils # Seg Neutrophils # Man Lymphocytes # (Manual) Monocytes # (Manual) Eosinophils # (Manual) Basophils # (Manual) PT INR Fibrinogen dRVVT Confirm Interp Factor V Activity POC ABG pH 7.288 L POC ABG pCO2 30.2 L 21.5 L POC ABG pO2 32 L 39 L ABG pO2 ABG HCO3 ABG Base Excess ABG Hemoglobin Oxyhemoglobin Sodium Potassium Chloride Carbon Dioxide BUN Creatinine Glucose POC Glucose 109 H Lactic Acid Calcium Phosphorus Magnesium Direct Bilirubin AST ALT Alkaline Phosphatase Lactate Dehydrogenase Troponin T C-Reactive Protein Total Protein Albumin Prealbumin Triglycerides Cholesterol LDL Cholesterol Direct HDL Cholesterol Urine pH Urine WBC (Auto) Urine Creatinine Urine Total Protein Fluid Total Protein Vancomycin Trough Rheumatoid Factor Complement C4 Miscellaneous Test Crossmatch 09/25/16 09/25/16 09/25/16 04:20 04:20 04:20 WBC RBC 2.58 L Hgb 7.0 L Hct 21.0 L MCV MCH 27 L MCHC RDW 23.8 H Plt Count Lymph % (Auto) [place] % (Auto) Lymph # [place] # Baso # Seg Neutrophils % Seg Neuts % (Manual) Lymphocytes % (Manual) 12.0 L Monocytes % (Manual) Eosinophils % (Manual) 7.0 H Basophils % (Manual) 2.0 H Nucleated RBC % Seg Neutrophils # Seg Neutrophils # Man Lymphocytes # (Manual) 0.9 L Monocytes # (Manual) Eosinophils # (Manual) 0.5 H Basophils # (Manual) PT INR Fibrinogen dRVVT Confirm Interp Factor V Activity POC ABG pH POC ABG pCO2 POC ABG pO2 ABG pO2 ABG HCO3 ABG Base Excess ABG Hemoglobin Oxyhemoglobin Sodium Potassium Chloride Carbon Dioxide 15 L BUN 72 H Creatinine 3.8 H Glucose POC Glucose Lactic Acid Calcium 6.0 L Phosphorus 4.60 H Magnesium 1.60 L Direct Bilirubin AST ALT Alkaline Phosphatase Lactate Dehydrogenase Troponin T C-Reactive Protein Total Protein Albumin Prealbumin Triglycerides Cholesterol LDL Cholesterol Direct HDL Cholesterol Urine pH Urine WBC (Auto) Urine Creatinine Urine Total Protein Fluid Total Protein Vancomycin Trough Rheumatoid Factor Complement C4 Miscellaneous Test Crossmatch 09/25/16 09/25/16 09/25/16 04:57 08:02 10:30 WBC RBC Hgb Hct MCV MCH MCHC RDW Plt Count Lymph % (Auto) [place] % (Auto) Lymph # [place] # Baso # Seg Neutrophils % Seg Neuts % (Manual) Lymphocytes % (Manual) Monocytes % (Manual) Eosinophils % (Manual) Basophils % (Manual) Nucleated RBC % Seg Neutrophils # Seg Neutrophils # Man Lymphocytes # (Manual) Monocytes # (Manual) Eosinophils # (Manual) Basophils # (Manual) PT INR Fibrinogen dRVVT Confirm Interp Factor V Activity POC ABG pH POC ABG pCO2 24.7 L POC ABG pO2 152 H ABG pO2 ABG HCO3 ABG Base Excess ABG Hemoglobin Oxyhemoglobin Sodium Potassium Chloride Carbon Dioxide BUN Creatinine Glucose POC Glucose 113 H Lactic Acid Calcium Phosphorus Magnesium Direct Bilirubin AST ALT Alkaline Phosphatase Lactate Dehydrogenase Troponin T C-Reactive Protein Total Protein Albumin Prealbumin Triglycerides Cholesterol LDL Cholesterol Direct HDL Cholesterol Urine pH Urine WBC (Auto) Urine Creatinine Urine Total Protein Fluid Total Protein Vancomycin Trough Rheumatoid Factor Complement C4 Miscellaneous Test Crossmatch See Detail 09/25/16 09/25/16 09/25/16 12:05 17:44 23:47 WBC RBC Hgb Hct MCV MCH MCHC RDW Plt Count Lymph % (Auto) [place] % (Auto) Lymph # [place] # Baso # Seg Neutrophils % Seg Neuts % (Manual) Lymphocytes % (Manual) Monocytes % (Manual) Eosinophils % (Manual) Basophils % (Manual) Nucleated RBC % Seg Neutrophils # Seg Neutrophils # Man Lymphocytes # (Manual) Monocytes # (Manual) Eosinophils # (Manual) Basophils # (Manual) PT INR Fibrinogen dRVVT Confirm Interp Factor V Activity POC ABG pH POC ABG pCO2 POC ABG pO2 ABG pO2 ABG HCO3 ABG Base Excess ABG Hemoglobin Oxyhemoglobin Sodium Potassium Chloride Carbon Dioxide BUN Creatinine Glucose POC Glucose 117 H 119 H 150 H Lactic Acid Calcium Phosphorus Magnesium Direct Bilirubin AST ALT Alkaline Phosphatase Lactate Dehydrogenase Troponin T C-Reactive Protein Total Protein Albumin Prealbumin Triglycerides Cholesterol LDL Cholesterol Direct HDL Cholesterol Urine pH Urine WBC (Auto) Urine Creatinine Urine Total Protein Fluid Total Protein Vancomycin Trough Rheumatoid Factor Complement C4 Miscellaneous Test Crossmatch 09/26/16 09/26/16 09/26/16 04:25 04:25 04:25 WBC RBC 2.65 L Hgb 7.4 L Hct 21.6 L MCV MCH MCHC RDW 22.5 H Plt Count Lymph % (Auto) [place] % (Auto) Lymph # [place] # Baso # Seg Neutrophils % Seg Neuts % (Manual) Lymphocytes % (Manual) 6.0 L Monocytes % (Manual) Eosinophils % (Manual) 11.0 H Basophils % (Manual) Nucleated RBC % Seg Neutrophils # Seg Neutrophils # Man Lymphocytes # (Manual) 0.4 L Monocytes # (Manual) Eosinophils # (Manual) 0.6 H Basophils # (Manual) PT INR Fibrinogen dRVVT Confirm Interp Factor V Activity POC ABG pH POC ABG pCO2 POC ABG pO2 ABG pO2 ABG HCO3 ABG Base Excess ABG Hemoglobin Oxyhemoglobin Sodium Potassium Chloride 97.0 L Carbon Dioxide 19 L BUN 43 H Creatinine 2.6 H Glucose 130 H POC Glucose Lactic Acid 4.40 H* Calcium 6.7 L Phosphorus Magnesium Direct Bilirubin AST ALT Alkaline Phosphatase Lactate Dehydrogenase Troponin T C-Reactive Protein Total Protein Albumin Prealbumin Triglycerides Cholesterol LDL Cholesterol Direct HDL Cholesterol Urine pH Urine WBC (Auto) Urine Creatinine Urine Total Protein Fluid Total Protein Vancomycin Trough Rheumatoid Factor Complement C4 Miscellaneous Test Crossmatch 09/26/16 09/26/16 09/26/16 05:20 11:44 12:12 WBC RBC Hgb Hct MCV MCH MCHC RDW Plt Count Lymph % (Auto) [place] % (Auto) Lymph # [place] # Baso # Seg Neutrophils % Seg Neuts % (Manual) Lymphocytes % (Manual) Monocytes % (Manual) Eosinophils % (Manual) Basophils % (Manual) Nucleated RBC % Seg Neutrophils # Seg Neutrophils # Man Lymphocytes # (Manual) Monocytes # (Manual) Eosinophils # (Manual) Basophils # (Manual) PT INR Fibrinogen dRVVT Confirm Interp Factor V Activity POC ABG pH POC ABG pCO2 27.0 L POC ABG pO2 69 L ABG pO2 ABG HCO3 ABG Base Excess ABG Hemoglobin Oxyhemoglobin Sodium Potassium Chloride Carbon Dioxide BUN Creatinine Glucose POC Glucose 121 H 128 H Lactic Acid Calcium Phosphorus Magnesium Direct Bilirubin AST ALT Alkaline Phosphatase Lactate Dehydrogenase Troponin T C-Reactive Protein Total Protein Albumin Prealbumin Triglycerides Cholesterol LDL Cholesterol Direct HDL Cholesterol Urine pH Urine WBC (Auto) Urine Creatinine Urine Total Protein Fluid Total Protein Vancomycin Trough Rheumatoid Factor Complement C4 Miscellaneous Test Crossmatch 09/26/16 09/26/16 09/27/16 18:31 23:40 08:20 WBC RBC Hgb Hct MCV MCH MCHC RDW Plt Count Lymph % (Auto) [place] % (Auto) Lymph # [place] # Baso # Seg Neutrophils % Seg Neuts % (Manual) Lymphocytes % (Manual) Monocytes % (Manual) Eosinophils % (Manual) Basophils % (Manual) Nucleated RBC % Seg Neutrophils # Seg Neutrophils # Man Lymphocytes # (Manual) Monocytes # (Manual) Eosinophils # (Manual) Basophils # (Manual) PT INR Fibrinogen dRVVT Confirm Interp Factor V Activity POC ABG pH POC ABG pCO2 POC ABG pO2 ABG pO2 ABG HCO3 ABG Base Excess ABG Hemoglobin Oxyhemoglobin Sodium Potassium Chloride Carbon Dioxide BUN Creatinine Glucose POC Glucose 120 H 133 H Lactic Acid 4.10 H* Calcium Phosphorus Magnesium Direct Bilirubin AST ALT Alkaline Phosphatase Lactate Dehydrogenase Troponin T C-Reactive Protein Total Protein Albumin Prealbumin Triglycerides Cholesterol LDL Cholesterol Direct HDL Cholesterol Urine pH Urine WBC (Auto) Urine Creatinine Urine Total Protein Fluid Total Protein Vancomycin Trough Rheumatoid Factor Complement C4 Miscellaneous Test Crossmatch 09/27/16 09/27/16 09/27/16 11:23 15:00 18:15 WBC RBC Hgb Hct MCV MCH MCHC RDW Plt Count Lymph % (Auto) [place] % (Auto) Lymph # [place] # Baso # Seg Neutrophils % Seg Neuts % (Manual) Lymphocytes % (Manual) Monocytes % (Manual) Eosinophils % (Manual) Basophils % (Manual) Nucleated RBC % Seg Neutrophils # Seg Neutrophils # Man Lymphocytes # (Manual) Monocytes # (Manual) Eosinophils # (Manual) Basophils # (Manual) PT INR Fibrinogen dRVVT Confirm Interp Factor V Activity POC ABG pH 7.459 H POC ABG pCO2 27.1 L POC ABG pO2 140 H ABG pO2 ABG HCO3 ABG Base Excess ABG Hemoglobin Oxyhemoglobin Sodium Potassium Chloride Carbon Dioxide BUN Creatinine Glucose POC Glucose 114 H 127 H Lactic Acid Calcium Phosphorus Magnesium Direct Bilirubin AST ALT Alkaline Phosphatase Lactate Dehydrogenase Troponin T C-Reactive Protein Total Protein Albumin Prealbumin Triglycerides Cholesterol LDL Cholesterol Direct HDL Cholesterol Urine pH Urine WBC (Auto) Urine Creatinine Urine Total Protein Fluid Total Protein Vancomycin Trough Rheumatoid Factor Complement C4 Miscellaneous Test Crossmatch 09/27/16 09/27/16 09/28/16 Unknown Unknown 03:45 WBC RBC 2.49 L Hgb 6.8 L Hct 20.7 L MCV MCH 27 L MCHC RDW 22.1 H Plt Count Lymph % (Auto) [place] % (Auto) Lymph # [place] # Baso # Seg Neutrophils % Seg Neuts % (Manual) 32.0 L Lymphocytes % (Manual) 12.0 L Monocytes % (Manual) 11.0 H Eosinophils % (Manual) 10.0 H Basophils % (Manual) Nucleated RBC % Seg Neutrophils # Seg Neutrophils # Man Lymphocytes # (Manual) 1.0 L Monocytes # (Manual) 0.9 H Eosinophils # (Manual) 0.8 H Basophils # (Manual) PT INR Fibrinogen dRVVT Confirm Interp Factor V Activity POC ABG pH POC ABG pCO2 POC ABG pO2 ABG pO2 ABG HCO3 ABG Base Excess ABG Hemoglobin Oxyhemoglobin Sodium 135 L 135 L Potassium 3.5 L Chloride 93.6 L 94.4 L Carbon Dioxide 17 L 21 L BUN 45 H 28 H Creatinine 3.3 H 2.5 H Glucose 106 H POC Glucose Lactic Acid Calcium 7.3 L 7.1 L Phosphorus Magnesium Direct Bilirubin AST ALT Alkaline Phosphatase Lactate Dehydrogenase Troponin T C-Reactive Protein Total Protein Albumin Prealbumin Triglycerides Cholesterol LDL Cholesterol Direct HDL Cholesterol Urine pH Urine WBC (Auto) Urine Creatinine Urine Total Protein Fluid Total Protein Vancomycin Trough Rheumatoid Factor Complement C4 Miscellaneous Test Crossmatch 09/28/16 09/28/16 09/28/16 03:45 07:25 11:58 WBC 13.3 H RBC 3.01 L Hgb 8.4 L Hct 25.0 L MCV MCH MCHC RDW 20.5 H Plt Count 128 L Lymph % (Auto) [place] % (Auto) Lymph # [place] # Baso # Seg Neutrophils % Seg Neuts % (Manual) Lymphocytes % (Manual) 7.0 L Monocytes % (Manual) Eosinophils % (Manual) 6.0 H Basophils % (Manual) Nucleated RBC % Seg Neutrophils # Seg Neutrophils # Man Lymphocytes # (Manual) 0.9 L Monocytes # (Manual) Eosinophils # (Manual) 0.8 H Basophils # (Manual) PT INR Fibrinogen dRVVT Confirm Interp Factor V Activity POC ABG pH POC ABG pCO2 POC ABG pO2 ABG pO2 ABG HCO3 ABG Base Excess ABG Hemoglobin Oxyhemoglobin Sodium Potassium Chloride Carbon Dioxide BUN Creatinine Glucose POC Glucose 121 H Lactic Acid 4.50 H* Calcium Phosphorus Magnesium Direct Bilirubin AST ALT Alkaline Phosphatase Lactate Dehydrogenase Troponin T C-Reactive Protein Total Protein Albumin Prealbumin Triglycerides Cholesterol LDL Cholesterol Direct HDL Cholesterol Urine pH Urine WBC (Auto) Urine Creatinine Urine Total Protein Fluid Total Protein Vancomycin Trough Rheumatoid Factor Complement C4 Miscellaneous Test Crossmatch 09/29/16 09/29/16 09/29/16 06:45 06:45 06:45 WBC 14.9 H RBC 2.74 L Hgb 7.6 L Hct 23.2 L MCV MCH MCHC RDW 20.5 H Plt Count 81 L Lymph % (Auto) [place] % (Auto) Lymph # [place] # Baso # Seg Neutrophils % Seg Neuts % (Manual) 81.0 H Lymphocytes % (Manual) 4.0 L Monocytes % (Manual) Eosinophils % (Manual) Basophils % (Manual) Nucleated RBC % Seg Neutrophils # Seg Neutrophils # Man 12.1 H Lymphocytes # (Manual) 0.6 L Monocytes # (Manual) Eosinophils # (Manual) Basophils # (Manual) PT INR Fibrinogen dRVVT Confirm Interp Factor V Activity POC ABG pH POC ABG pCO2 POC ABG pO2 ABG pO2 ABG HCO3 ABG Base Excess ABG Hemoglobin Oxyhemoglobin Sodium 133 L Potassium 3.4 L Chloride 92.5 L Carbon Dioxide 21 L BUN 33 H Creatinine 3.0 H Glucose POC Glucose Lactic Acid Calcium 6.6 L Phosphorus Magnesium 1.40 L Direct Bilirubin 0.9 H AST ALT Alkaline Phosphatase Lactate Dehydrogenase Troponin T C-Reactive Protein Total Protein 4.3 L Albumin 1.3 L Prealbumin Triglycerides Cholesterol LDL Cholesterol Direct HDL Cholesterol Urine pH Urine WBC (Auto) Urine Creatinine Urine Total Protein Fluid Total Protein Vancomycin Trough Rheumatoid Factor Complement C4 Miscellaneous Test Crossmatch 09/29/16 09/29/16 09/30/16 17:52 20:12 00:07 WBC RBC Hgb Hct MCV MCH MCHC RDW Plt Count Lymph % (Auto) [place] % (Auto) Lymph # [place] # Baso # Seg Neutrophils % Seg Neuts % (Manual) Lymphocytes % (Manual) Monocytes % (Manual) Eosinophils % (Manual) Basophils % (Manual) Nucleated RBC % Seg Neutrophils # Seg Neutrophils # Man Lymphocytes # (Manual) Monocytes # (Manual) Eosinophils # (Manual) Basophils # (Manual) PT INR Fibrinogen dRVVT Confirm Interp Factor V Activity POC ABG pH POC ABG pCO2 POC ABG pO2 ABG pO2 ABG HCO3 ABG Base Excess ABG Hemoglobin Oxyhemoglobin Sodium Potassium Chloride Carbon Dioxide BUN Creatinine Glucose POC Glucose 50 L 51 L Lactic Acid Calcium Phosphorus Magnesium Direct Bilirubin AST ALT Alkaline Phosphatase Lactate Dehydrogenase Troponin T 0.204 H* C-Reactive Protein Total Protein Albumin Prealbumin Triglycerides Cholesterol 31 L LDL Cholesterol Direct 4 L HDL Cholesterol 3 L Urine pH Urine WBC (Auto) Urine Creatinine Urine Total Protein Fluid Total Protein Vancomycin Trough Rheumatoid Factor Complement C4 Miscellaneous Test Crossmatch 09/30/16 09/30/16 09/30/16 01:30 05:15 06:10 WBC RBC Hgb Hct MCV MCH MCHC RDW Plt Count Lymph % (Auto) [place] % (Auto) Lymph # [place] # Baso # Seg Neutrophils % Seg Neuts % (Manual) Lymphocytes % (Manual) Monocytes % (Manual) Eosinophils % (Manual) Basophils % (Manual) Nucleated RBC % Seg Neutrophils # Seg Neutrophils # Man Lymphocytes # (Manual) Monocytes # (Manual) Eosinophils # (Manual) Basophils # (Manual) PT INR Fibrinogen dRVVT Confirm Interp Factor V Activity POC ABG pH POC ABG pCO2 POC ABG pO2 ABG pO2 ABG HCO3 ABG Base Excess ABG Hemoglobin Oxyhemoglobin Sodium 133 L Potassium 3.2 L Chloride 93.2 L Carbon Dioxide 19 L BUN 36 H Creatinine 3.2 H Glucose 104 H POC Glucose 167 H 146 H Lactic Acid Calcium 6.4 L Phosphorus Magnesium 1.60 L Direct Bilirubin AST ALT Alkaline Phosphatase Lactate Dehydrogenase Troponin T C-Reactive Protein Total Protein Albumin Prealbumin Triglycerides Cholesterol LDL Cholesterol Direct HDL Cholesterol Urine pH Urine WBC (Auto) Urine Creatinine Urine Total Protein Fluid Total Protein Vancomycin Trough Rheumatoid Factor Complement C4 Miscellaneous Test Crossmatch 09/30/16 09/30/16 09/30/16 11:26 13:39 18:38 WBC RBC Hgb Hct MCV MCH MCHC RDW Plt Count Lymph % (Auto) [place] % (Auto) Lymph # [place] # Baso # Seg Neutrophils % Seg Neuts % (Manual) Lymphocytes % (Manual) Monocytes % (Manual) Eosinophils % (Manual) Basophils % (Manual) Nucleated RBC % Seg Neutrophils # Seg Neutrophils # Man Lymphocytes # (Manual) Monocytes # (Manual) Eosinophils # (Manual) Basophils # (Manual) PT INR Fibrinogen dRVVT Confirm Interp Factor V Activity POC ABG pH 7.479 H POC ABG pCO2 29.8 L POC ABG pO2 117 H ABG pO2 ABG HCO3 ABG Base Excess ABG Hemoglobin Oxyhemoglobin Sodium Potassium Chloride Carbon Dioxide BUN Creatinine Glucose POC Glucose 140 H 122 H Lactic Acid Calcium Phosphorus Magnesium Direct Bilirubin AST ALT Alkaline Phosphatase Lactate Dehydrogenase Troponin T C-Reactive Protein Total Protein Albumin Prealbumin Triglycerides Cholesterol LDL Cholesterol Direct HDL Cholesterol Urine pH Urine WBC (Auto) Urine Creatinine Urine Total Protein Fluid Total Protein Vancomycin Trough Rheumatoid Factor Complement C4 Miscellaneous Test Crossmatch 10/01/16 10/01/16 10/01/16 06:00 06:00 12:37 WBC 12.6 H RBC 2.75 L Hgb 7.3 L Hct 23.3 L MCV MCH 27 L MCHC RDW 20.6 H Plt Count 72 L Lymph % (Auto) [place] % (Auto) Lymph # [place] # Baso # Seg Neutrophils % Seg Neuts % (Manual) 31.0 L Lymphocytes % (Manual) 8.0 L Monocytes % (Manual) Eosinophils % (Manual) Basophils % (Manual) Nucleated RBC % 3.0 H Seg Neutrophils # Seg Neutrophils # Man Lymphocytes # (Manual) 1.0 L Monocytes # (Manual) Eosinophils # (Manual) Basophils # (Manual) PT INR Fibrinogen dRVVT Confirm Interp Factor V Activity POC ABG pH POC ABG pCO2 POC ABG pO2 ABG pO2 ABG HCO3 ABG Base Excess ABG Hemoglobin Oxyhemoglobin Sodium 127 L Potassium Chloride 86.8 L Carbon Dioxide 20 L BUN 42 H Creatinine 3.5 H Glucose POC Glucose 65 L Lactic Acid Calcium 7.0 L Phosphorus Magnesium Direct Bilirubin AST ALT Alkaline Phosphatase Lactate Dehydrogenase Troponin T C-Reactive Protein Total Protein Albumin Prealbumin Triglycerides Cholesterol LDL Cholesterol Direct HDL Cholesterol Urine pH Urine WBC (Auto) Urine Creatinine Urine Total Protein Fluid Total Protein Vancomycin Trough Rheumatoid Factor Complement C4 Miscellaneous Test Crossmatch 10/01/16 10/01/16 10/02/16 17:39 23:32 00:59 WBC RBC Hgb Hct MCV MCH MCHC RDW Plt Count Lymph % (Auto) [place] % (Auto) Lymph # [place] # Baso # Seg Neutrophils % Seg Neuts % (Manual) Lymphocytes % (Manual) Monocytes % (Manual) Eosinophils % (Manual) Basophils % (Manual) Nucleated RBC % Seg Neutrophils # Seg Neutrophils # Man Lymphocytes # (Manual) Monocytes # (Manual) Eosinophils # (Manual) Basophils # (Manual) PT INR Fibrinogen dRVVT Confirm Interp Factor V Activity POC ABG pH POC ABG pCO2 POC ABG pO2 ABG pO2 ABG HCO3 ABG Base Excess ABG Hemoglobin Oxyhemoglobin Sodium Potassium Chloride Carbon Dioxide BUN Creatinine Glucose POC Glucose 107 H 52 L 145 H Lactic Acid Calcium Phosphorus Magnesium Direct Bilirubin AST ALT Alkaline Phosphatase Lactate Dehydrogenase Troponin T C-Reactive Protein Total Protein Albumin Prealbumin Triglycerides Cholesterol LDL Cholesterol Direct HDL Cholesterol Urine pH Urine WBC (Auto) Urine Creatinine Urine Total Protein Fluid Total Protein Vancomycin Trough Rheumatoid Factor Complement C4 Miscellaneous Test Crossmatch 10/02/16 10/02/16 10/02/16 10:30 10:50 10:50 WBC 14.7 H RBC 2.76 L Hgb 7.4 L Hct 23.6 L MCV MCH 27 L MCHC RDW 20.2 H Plt Count 79 L Lymph % (Auto) [place] % (Auto) Lymph # [place] # Baso # Seg Neutrophils % Seg Neuts % (Manual) 86.0 H Lymphocytes % (Manual) 6.0 L Monocytes % (Manual) Eosinophils % (Manual) Basophils % (Manual) Nucleated RBC % Seg Neutrophils # Seg Neutrophils # Man 12.6 H Lymphocytes # (Manual) 0.9 L Monocytes # (Manual) Eosinophils # (Manual) Basophils # (Manual) PT INR Fibrinogen dRVVT Confirm Interp Factor V Activity POC ABG pH 7.486 H POC ABG pCO2 30.1 L POC ABG pO2 108 H ABG pO2 ABG HCO3 ABG Base Excess ABG Hemoglobin Oxyhemoglobin Sodium 131 L Potassium 3.4 L Chloride 89.9 L Carbon Dioxide BUN 26 H Creatinine 2.6 H Glucose POC Glucose Lactic Acid Calcium 7.0 L Phosphorus Magnesium Direct Bilirubin AST ALT Alkaline Phosphatase Lactate Dehydrogenase Troponin T C-Reactive Protein Total Protein Albumin Prealbumin Triglycerides Cholesterol LDL Cholesterol Direct HDL Cholesterol Urine pH Urine WBC (Auto) Urine Creatinine Urine Total Protein Fluid Total Protein Vancomycin Trough Rheumatoid Factor Complement C4 Miscellaneous Test Crossmatch 10/02/16 10/03/16 10/03/16 23:45 00:45 05:10 WBC 12.9 H RBC 2.77 L Hgb 7.6 L Hct 23.7 L MCV MCH 27 L MCHC RDW 19.7 H Plt Count 89 L Lymph % (Auto) [place] % (Auto) Lymph # [place] # Baso # Seg Neutrophils % Seg Neuts % (Manual) Lymphocytes % (Manual) 8.0 L Monocytes % (Manual) Eosinophils % (Manual) Basophils % (Manual) Nucleated RBC % Seg Neutrophils # 11.9 H Seg Neutrophils # Man Lymphocytes # (Manual) 1.0 L Monocytes # (Manual) Eosinophils # (Manual) Basophils # (Manual) PT INR Fibrinogen dRVVT Confirm Interp Factor V Activity POC ABG pH POC ABG pCO2 POC ABG pO2 ABG pO2 ABG HCO3 ABG Base Excess ABG Hemoglobin Oxyhemoglobin Sodium Potassium Chloride Carbon Dioxide BUN Creatinine Glucose POC Glucose 55 L 199 H Lactic Acid Calcium Phosphorus Magnesium Direct Bilirubin AST ALT Alkaline Phosphatase Lactate Dehydrogenase Troponin T C-Reactive Protein Total Protein Albumin Prealbumin Triglycerides Cholesterol LDL Cholesterol Direct HDL Cholesterol Urine pH Urine WBC (Auto) Urine Creatinine Urine Total Protein Fluid Total Protein Vancomycin Trough Rheumatoid Factor Complement C4 Miscellaneous Test Crossmatch 10/03/16 10/03/16 10/03/16 05:10 12:14 13:18 WBC RBC Hgb Hct MCV MCH MCHC RDW Plt Count Lymph % (Auto) [place] % (Auto) Lymph # [place] # Baso # Seg Neutrophils % Seg Neuts % (Manual) Lymphocytes % (Manual) Monocytes % (Manual) Eosinophils % (Manual) Basophils % (Manual) Nucleated RBC % Seg Neutrophils # Seg Neutrophils # Man Lymphocytes # (Manual) Monocytes # (Manual) Eosinophils # (Manual) Basophils # (Manual) PT INR Fibrinogen dRVVT Confirm Interp Factor V Activity POC ABG pH POC ABG pCO2 POC ABG pO2 ABG pO2 ABG HCO3 ABG Base Excess ABG Hemoglobin Oxyhemoglobin Sodium 129 L Potassium 3.3 L Chloride 88.8 L Carbon Dioxide 20 L BUN 29 H Creatinine 2.8 H Glucose POC Glucose 68 L 127 H Lactic Acid Calcium 7.2 L Phosphorus Magnesium Direct Bilirubin AST ALT Alkaline Phosphatase Lactate Dehydrogenase Troponin T C-Reactive Protein Total Protein Albumin Prealbumin Triglycerides Cholesterol LDL Cholesterol Direct HDL Cholesterol Urine pH Urine WBC (Auto) Urine Creatinine Urine Total Protein Fluid Total Protein Vancomycin Trough Rheumatoid Factor Complement C4 Miscellaneous Test Crossmatch 10/03/16 10/03/16 10/03/16 14:42 18:21 19:09 WBC RBC Hgb Hct MCV MCH MCHC RDW Plt Count Lymph % (Auto) [place] % (Auto) Lymph # [place] # Baso # Seg Neutrophils % Seg Neuts % (Manual) Lymphocytes % (Manual) Monocytes % (Manual) Eosinophils % (Manual) Basophils % (Manual) Nucleated RBC % Seg Neutrophils # Seg Neutrophils # Man Lymphocytes # (Manual) Monocytes # (Manual) Eosinophils # (Manual) Basophils # (Manual) PT INR Fibrinogen dRVVT Confirm Interp Factor V Activity POC ABG pH 7.499 H POC ABG pCO2 28.4 L POC ABG pO2 44 L ABG pO2 ABG HCO3 ABG Base Excess ABG Hemoglobin Oxyhemoglobin Sodium Potassium Chloride Carbon Dioxide BUN Creatinine Glucose POC Glucose 64 L 205 H Lactic Acid Calcium Phosphorus Magnesium Direct Bilirubin AST ALT Alkaline Phosphatase Lactate Dehydrogenase Troponin T C-Reactive Protein Total Protein Albumin Prealbumin Triglycerides Cholesterol LDL Cholesterol Direct HDL Cholesterol Urine pH Urine WBC (Auto) Urine Creatinine Urine Total Protein Fluid Total Protein Vancomycin Trough Rheumatoid Factor Complement C4 Miscellaneous Test Crossmatch 10/03/16 10/04/16 10/04/16 23:33 04:18 06:30 WBC RBC 2.54 L Hgb 7.1 L Hct 21.7 L MCV MCH MCHC RDW 19.5 H Plt Count 76 L Lymph % (Auto) [place] % (Auto) Lymph # [place] # Baso # Seg Neutrophils % Seg Neuts % (Manual) 88.0 H Lymphocytes % (Manual) 6.0 L Monocytes % (Manual) Eosinophils % (Manual) Basophils % (Manual) Nucleated RBC % Seg Neutrophils # Seg Neutrophils # Man 8.8 H Lymphocytes # (Manual) 0.6 L Monocytes # (Manual) Eosinophils # (Manual) Basophils # (Manual) PT INR Fibrinogen dRVVT Confirm Interp Factor V Activity POC ABG pH 7.461 H POC ABG pCO2 33.6 L POC ABG pO2 211 H ABG pO2 ABG HCO3 ABG Base Excess ABG Hemoglobin Oxyhemoglobin Sodium Potassium Chloride Carbon Dioxide BUN Creatinine Glucose POC Glucose 136 H Lactic Acid Calcium Phosphorus Magnesium Direct Bilirubin AST ALT Alkaline Phosphatase Lactate Dehydrogenase Troponin T C-Reactive Protein Total Protein Albumin Prealbumin Triglycerides Cholesterol LDL Cholesterol Direct HDL Cholesterol Urine pH Urine WBC (Auto) Urine Creatinine Urine Total Protein Fluid Total Protein Vancomycin Trough Rheumatoid Factor Complement C4 Miscellaneous Test Crossmatch 10/04/16 10/04/16 10/04/16 06:30 11:45 17:54 WBC RBC Hgb Hct MCV MCH MCHC RDW Plt Count Lymph % (Auto) [place] % (Auto) Lymph # [place] # Baso # Seg Neutrophils % Seg Neuts % (Manual) Lymphocytes % (Manual) Monocytes % (Manual) Eosinophils % (Manual) Basophils % (Manual) Nucleated RBC % Seg Neutrophils # Seg Neutrophils # Man Lymphocytes # (Manual) Monocytes # (Manual) Eosinophils # (Manual) Basophils # (Manual) PT INR Fibrinogen dRVVT Confirm Interp Factor V Activity POC ABG pH POC ABG pCO2 POC ABG pO2 ABG pO2 ABG HCO3 ABG Base Excess ABG Hemoglobin Oxyhemoglobin Sodium 128 L Potassium Chloride 87.4 L Carbon Dioxide 20 L BUN 34 H Creatinine 2.9 H Glucose 127 H POC Glucose 158 H 160 H Lactic Acid Calcium 7.4 L Phosphorus Magnesium Direct Bilirubin AST ALT Alkaline Phosphatase Lactate Dehydrogenase Troponin T C-Reactive Protein Total Protein Albumin Prealbumin Triglycerides Cholesterol LDL Cholesterol Direct HDL Cholesterol Urine pH Urine WBC (Auto) Urine Creatinine Urine Total Protein Fluid Total Protein Vancomycin Trough Rheumatoid Factor Complement C4 Miscellaneous Test Crossmatch 10/04/16 10/05/16 10/05/16 23:25 04:30 05:00 WBC RBC 2.64 L Hgb 7.5 L Hct 22.6 L MCV MCH MCHC RDW 19.3 H Plt Count 80 L Lymph % (Auto) [place] % (Auto) Lymph # [place] # Baso # Seg Neutrophils % Seg Neuts % (Manual) Lymphocytes % (Manual) 12.0 L Monocytes % (Manual) Eosinophils % (Manual) Basophils % (Manual) Nucleated RBC % Seg Neutrophils # Seg Neutrophils # Man Lymphocytes # (Manual) Monocytes # (Manual) Eosinophils # (Manual) Basophils # (Manual) PT INR Fibrinogen dRVVT Confirm Interp Factor V Activity POC ABG pH 7.475 H POC ABG pCO2 33.3 L POC ABG pO2 140 H ABG pO2 ABG HCO3 ABG Base Excess ABG Hemoglobin Oxyhemoglobin Sodium Potassium Chloride Carbon Dioxide BUN Creatinine Glucose POC Glucose 141 H Lactic Acid Calcium Phosphorus Magnesium Direct Bilirubin AST ALT Alkaline Phosphatase Lactate Dehydrogenase Troponin T C-Reactive Protein Total Protein Albumin Prealbumin Triglycerides Cholesterol LDL Cholesterol Direct HDL Cholesterol Urine pH Urine WBC (Auto) Urine Creatinine Urine Total Protein Fluid Total Protein Vancomycin Trough Rheumatoid Factor Complement C4 Miscellaneous Test Crossmatch 10/05/16 10/05/16 10/05/16 05:00 05:09 12:58 WBC RBC Hgb Hct MCV MCH MCHC RDW Plt Count Lymph % (Auto) [place] % (Auto) Lymph # [place] # Baso # Seg Neutrophils % Seg Neuts % (Manual) Lymphocytes % (Manual) Monocytes % (Manual) Eosinophils % (Manual) Basophils % (Manual) Nucleated RBC % Seg Neutrophils # Seg Neutrophils # Man Lymphocytes # (Manual) Monocytes # (Manual) Eosinophils # (Manual) Basophils # (Manual) PT INR Fibrinogen dRVVT Confirm Interp Factor V Activity POC ABG pH POC ABG pCO2 POC ABG pO2 ABG pO2 ABG HCO3 ABG Base Excess ABG Hemoglobin Oxyhemoglobin Sodium 131 L Potassium Chloride 94.0 L Carbon Dioxide 20 L BUN 22 H Creatinine 2.0 H Glucose 123 H POC Glucose 166 H 179 H Lactic Acid Calcium 7.7 L Phosphorus 2.20 L D Magnesium Direct Bilirubin AST ALT Alkaline Phosphatase Lactate Dehydrogenase Troponin T C-Reactive Protein Total Protein Albumin Prealbumin Triglycerides Cholesterol LDL Cholesterol Direct HDL Cholesterol Urine pH Urine WBC (Auto) Urine Creatinine Urine Total Protein Fluid Total Protein Vancomycin Trough Rheumatoid Factor Complement C4 Miscellaneous Test Crossmatch 10/05/16 10/05/16 10/05/16 15:50 18:53 23:12 WBC RBC Hgb Hct MCV MCH MCHC RDW Plt Count Lymph % (Auto) [place] % (Auto) Lymph # [place] # Baso # Seg Neutrophils % Seg Neuts % (Manual) Lymphocytes % (Manual) Monocytes % (Manual) Eosinophils % (Manual) Basophils % (Manual) Nucleated RBC % Seg Neutrophils # Seg Neutrophils # Man Lymphocytes # (Manual) Monocytes # (Manual) Eosinophils # (Manual) Basophils # (Manual) PT INR Fibrinogen dRVVT Confirm Interp Factor V Activity POC ABG pH POC ABG pCO2 POC ABG pO2 ABG pO2 ABG HCO3 ABG Base Excess ABG Hemoglobin Oxyhemoglobin Sodium Potassium Chloride Carbon Dioxide BUN Creatinine Glucose POC Glucose 150 H 164 H Lactic Acid Calcium Phosphorus Magnesium Direct Bilirubin AST ALT Alkaline Phosphatase Lactate Dehydrogenase Troponin T C-Reactive Protein Total Protein Albumin Prealbumin Triglycerides Cholesterol LDL Cholesterol Direct HDL Cholesterol Urine pH Urine WBC (Auto) Urine Creatinine Urine Total Protein Fluid Total Protein Vancomycin Trough Rheumatoid Factor Complement C4 Miscellaneous Test Crossmatch See Detail 10/06/16 10/06/16 10/06/16 03:50 03:50 04:53 WBC RBC 3.00 L Hgb 8.6 L Hct 25.8 L MCV MCH MCHC RDW 17.9 H Plt Count 65 L Lymph % (Auto) [place] % (Auto) Lymph # [place] # Baso # Seg Neutrophils % Seg Neuts % (Manual) 30.0 L Lymphocytes % (Manual) 5.0 L Monocytes % (Manual) Eosinophils % (Manual) Basophils % (Manual) Nucleated RBC % Seg Neutrophils # Seg Neutrophils # Man Lymphocytes # (Manual) 0.4 L Monocytes # (Manual) Eosinophils # (Manual) Basophils # (Manual) PT INR Fibrinogen dRVVT Confirm Interp Factor V Activity POC ABG pH 7.310 L POC ABG pCO2 49.0 H POC ABG pO2 ABG pO2 ABG HCO3 ABG Base Excess ABG Hemoglobin Oxyhemoglobin Sodium 133 L Potassium Chloride 95.9 L Carbon Dioxide BUN 26 H Creatinine 2.0 H Glucose 116 H POC Glucose Lactic Acid Calcium 7.8 L Phosphorus Magnesium Direct Bilirubin AST ALT Alkaline Phosphatase Lactate Dehydrogenase Troponin T C-Reactive Protein Total Protein Albumin Prealbumin Triglycerides Cholesterol LDL Cholesterol Direct HDL Cholesterol Urine pH Urine WBC (Auto) Urine Creatinine Urine Total Protein Fluid Total Protein Vancomycin Trough Rheumatoid Factor Complement C4 Miscellaneous Test Crossmatch 10/06/16 10/06/16 10/06/16 05:23 11:52 18:34 WBC RBC Hgb Hct MCV MCH MCHC RDW Plt Count Lymph % (Auto) [place] % (Auto) Lymph # [place] # Baso # Seg Neutrophils % Seg Neuts % (Manual) Lymphocytes % (Manual) Monocytes % (Manual) Eosinophils % (Manual) Basophils % (Manual) Nucleated RBC % Seg Neutrophils # Seg Neutrophils # Man Lymphocytes # (Manual) Monocytes # (Manual) Eosinophils # (Manual) Basophils # (Manual) PT INR Fibrinogen dRVVT Confirm Interp Factor V Activity POC ABG pH POC ABG pCO2 POC ABG pO2 ABG pO2 ABG HCO3 ABG Base Excess ABG Hemoglobin Oxyhemoglobin Sodium Potassium Chloride Carbon Dioxide BUN Creatinine Glucose POC Glucose 126 H 116 H 129 H Lactic Acid Calcium Phosphorus Magnesium Direct Bilirubin AST ALT Alkaline Phosphatase Lactate Dehydrogenase Troponin T C-Reactive Protein Total Protein Albumin Prealbumin Triglycerides Cholesterol LDL Cholesterol Direct HDL Cholesterol Urine pH Urine WBC (Auto) Urine Creatinine Urine Total Protein Fluid Total Protein Vancomycin Trough Rheumatoid Factor Complement C4 Miscellaneous Test Crossmatch 10/07/16 10/07/16 10/07/16 03:45 05:00 10:00 WBC 17.0 H RBC 2.68 L Hgb 7.3 L Hct 25.3 L MCV MCH 27 L MCHC 29 L RDW 19.6 H Plt Count 74 L Lymph % (Auto) [place] % (Auto) Lymph # [place] # Baso # Seg Neutrophils % Seg Neuts % (Manual) Lymphocytes % (Manual) 12.0 L Monocytes % (Manual) Eosinophils % (Manual) Basophils % (Manual) Nucleated RBC % 4.0 H Seg Neutrophils # Seg Neutrophils # Man 10.7 H Lymphocytes # (Manual) Monocytes # (Manual) Eosinophils # (Manual) Basophils # (Manual) PT INR Fibrinogen dRVVT Confirm Interp Factor V Activity POC ABG pH POC ABG pCO2 POC ABG pO2 ABG pO2 ABG HCO3 ABG Base Excess ABG Hemoglobin Oxyhemoglobin Sodium 130 L Potassium 3.2 L Chloride 93.9 L Carbon Dioxide 20 L BUN 44 H Creatinine 2.7 H Glucose 129 H POC Glucose Lactic Acid Calcium 7.4 L Phosphorus Magnesium Direct Bilirubin AST ALT 6 L Alkaline Phosphatase 195 H Lactate Dehydrogenase Troponin T C-Reactive Protein Total Protein 4.9 L Albumin 1.0 L Prealbumin Triglycerides Cholesterol LDL Cholesterol Direct HDL Cholesterol Urine pH Urine WBC (Auto) Urine Creatinine Urine Total Protein Fluid Total Protein Vancomycin Trough Rheumatoid Factor Complement C4 Miscellaneous Test Flexitest 1 H Crossmatch 10/07/16 10/07/16 10/07/16 10:00 11:24 18:10 WBC RBC Hgb Hct MCV MCH MCHC RDW Plt Count Lymph % (Auto) [place] % (Auto) Lymph # [place] # Baso # Seg Neutrophils % Seg Neuts % (Manual) Lymphocytes % (Manual) Monocytes % (Manual) Eosinophils % (Manual) Basophils % (Manual) Nucleated RBC % Seg Neutrophils # Seg Neutrophils # Man Lymphocytes # (Manual) Monocytes # (Manual) Eosinophils # (Manual) Basophils # (Manual) PT INR Fibrinogen dRVVT Confirm Interp Factor V Activity POC ABG pH POC ABG pCO2 POC ABG pO2 ABG pO2 ABG HCO3 ABG Base Excess ABG Hemoglobin Oxyhemoglobin Sodium Potassium Chloride Carbon Dioxide BUN Creatinine Glucose POC Glucose 116 H 130 H Lactic Acid Calcium Phosphorus Magnesium Direct Bilirubin AST ALT Alkaline Phosphatase Lactate Dehydrogenase Troponin T C-Reactive Protein 19.40 H Total Protein Albumin Prealbumin Triglycerides Cholesterol LDL Cholesterol Direct HDL Cholesterol Urine pH Urine WBC (Auto) Urine Creatinine Urine Total Protein Fluid Total Protein Vancomycin Trough Rheumatoid Factor Complement C4 Miscellaneous Test Crossmatch 10/07/16 10/08/16 10/08/16 18:30 00:00 04:00 WBC RBC Hgb Hct MCV MCH MCHC RDW Plt Count Lymph % (Auto) [place] % (Auto) Lymph # [place] # Baso # Seg Neutrophils % Seg Neuts % (Manual) Lymphocytes % (Manual) Monocytes % (Manual) Eosinophils % (Manual) Basophils % (Manual) Nucleated RBC % Seg Neutrophils # Seg Neutrophils # Man Lymphocytes # (Manual) Monocytes # (Manual) Eosinophils # (Manual) Basophils # (Manual) PT INR Fibrinogen dRVVT Confirm Interp Factor V Activity POC ABG pH POC ABG pCO2 POC ABG pO2 ABG pO2 ABG HCO3 ABG Base Excess ABG Hemoglobin Oxyhemoglobin Sodium 132 L Potassium 3.3 L Chloride 93.6 L Carbon Dioxide 17 L BUN 59 H Creatinine 2.7 H Glucose 121 H POC Glucose 122 H Lactic Acid Calcium 7.6 L Phosphorus Magnesium Direct Bilirubin AST ALT Alkaline Phosphatase Lactate Dehydrogenase Troponin T C-Reactive Protein Total Protein Albumin Prealbumin Triglycerides Cholesterol LDL Cholesterol Direct HDL Cholesterol Urine pH Urine WBC (Auto) > 182.0 H Urine Creatinine Urine Total Protein Fluid Total Protein Vancomycin Trough Rheumatoid Factor Complement C4 Miscellaneous Test Crossmatch 10/08/16 10/08/16 10/08/16 04:30 05:30 11:51 WBC RBC 5.15 H Hgb 14.4 H D Hct 44.5 H D MCV MCH MCHC RDW 19.5 H Plt Count 56 L Lymph % (Auto) [place] % (Auto) Lymph # [place] # Baso # Seg Neutrophils % Seg Neuts % (Manual) 24.0 L Lymphocytes % (Manual) 8.0 L Monocytes % (Manual) Eosinophils % (Manual) Basophils % (Manual) Nucleated RBC % 9.0 H Seg Neutrophils # Seg Neutrophils # Man Lymphocytes # (Manual) 0.7 L Monocytes # (Manual) Eosinophils # (Manual) Basophils # (Manual) PT INR Fibrinogen dRVVT Confirm Interp Factor V Activity POC ABG pH POC ABG pCO2 POC ABG pO2 ABG pO2 ABG HCO3 ABG Base Excess ABG Hemoglobin Oxyhemoglobin Sodium Potassium Chloride Carbon Dioxide BUN Creatinine Glucose POC Glucose 125 H 150 H Lactic Acid Calcium Phosphorus Magnesium Direct Bilirubin AST ALT Alkaline Phosphatase Lactate Dehydrogenase Troponin T C-Reactive Protein Total Protein Albumin Prealbumin Triglycerides Cholesterol LDL Cholesterol Direct HDL Cholesterol Urine pH Urine WBC (Auto) Urine Creatinine Urine Total Protein Fluid Total Protein Vancomycin Trough Rheumatoid Factor Complement C4 Miscellaneous Test Crossmatch 10/08/16 10/08/16 10/08/16 12:49 17:07 19:30 WBC RBC Hgb 7.1 L D Hct 22.4 L D MCV MCH MCHC RDW Plt Count Lymph % (Auto) [place] % (Auto) Lymph # [place] # Baso # Seg Neutrophils % Seg Neuts % (Manual) Lymphocytes % (Manual) Monocytes % (Manual) Eosinophils % (Manual) Basophils % (Manual) Nucleated RBC % Seg Neutrophils # Seg Neutrophils # Man Lymphocytes # (Manual) Monocytes # (Manual) Eosinophils # (Manual) Basophils # (Manual) PT INR Fibrinogen dRVVT Confirm Interp Factor V Activity POC ABG pH POC ABG pCO2 28.2 L POC ABG pO2 111 H ABG pO2 ABG HCO3 ABG Base Excess ABG Hemoglobin Oxyhemoglobin Sodium Potassium Chloride Carbon Dioxide BUN Creatinine Glucose POC Glucose 145 H Lactic Acid Calcium Phosphorus Magnesium Direct Bilirubin AST ALT Alkaline Phosphatase Lactate Dehydrogenase Troponin T C-Reactive Protein Total Protein Albumin Prealbumin Triglycerides Cholesterol LDL Cholesterol Direct HDL Cholesterol Urine pH Urine WBC (Auto) Urine Creatinine Urine Total Protein Fluid Total Protein Vancomycin Trough Rheumatoid Factor Complement C4 Miscellaneous Test Crossmatch 10/08/16 10/09/16 10/09/16 19:30 03:45 03:45 WBC 12.6 H RBC 2.36 L Hgb 6.7 L Hct 21.1 L MCV MCH MCHC RDW 19.5 H Plt Count 75 L Lymph % (Auto) [place] % (Auto) Lymph # [place] # Baso # Seg Neutrophils % Seg Neuts % (Manual) Lymphocytes % (Manual) Monocytes % (Manual) 10.0 H Eosinophils % (Manual) Basophils % (Manual) Nucleated RBC % 3.0 H Seg Neutrophils # Seg Neutrophils # Man Lymphocytes # (Manual) Monocytes # (Manual) 1.3 H Eosinophils # (Manual) Basophils # (Manual) PT 18.0 H INR 1.41 H Fibrinogen dRVVT Confirm Interp Factor V Activity POC ABG pH POC ABG pCO2 POC ABG pO2 ABG pO2 ABG HCO3 ABG Base Excess ABG Hemoglobin Oxyhemoglobin Sodium 135 L Potassium Chloride Carbon Dioxide 17 L BUN 81 H Creatinine 3.2 H Glucose 109 H POC Glucose Lactic Acid Calcium 7.4 L Phosphorus 4.60 H D Magnesium Direct Bilirubin AST ALT Alkaline Phosphatase Lactate Dehydrogenase Troponin T C-Reactive Protein Total Protein Albumin Prealbumin Triglycerides Cholesterol LDL Cholesterol Direct HDL Cholesterol Urine pH Urine WBC (Auto) Urine Creatinine Urine Total Protein Fluid Total Protein Vancomycin Trough Rheumatoid Factor Complement C4 Miscellaneous Test Crossmatch 10/09/16 10/09/16 10/09/16 03:45 05:14 07:20 WBC RBC Hgb Hct MCV MCH MCHC RDW Plt Count Lymph % (Auto) [place] % (Auto) Lymph # [place] # Baso # Seg Neutrophils % Seg Neuts % (Manual) Lymphocytes % (Manual) Monocytes % (Manual) Eosinophils % (Manual) Basophils % (Manual) Nucleated RBC % Seg Neutrophils # Seg Neutrophils # Man Lymphocytes # (Manual) Monocytes # (Manual) Eosinophils # (Manual) Basophils # (Manual) PT 19.0 H INR 1.51 H Fibrinogen dRVVT Confirm Interp Factor V Activity POC ABG pH POC ABG pCO2 POC ABG pO2 ABG pO2 ABG HCO3 ABG Base Excess ABG Hemoglobin Oxyhemoglobin Sodium Potassium Chloride Carbon Dioxide BUN Creatinine Glucose POC Glucose 151 H Lactic Acid Calcium Phosphorus Magnesium Direct Bilirubin AST ALT Alkaline Phosphatase Lactate Dehydrogenase Troponin T C-Reactive Protein Total Protein Albumin Prealbumin Triglycerides Cholesterol LDL Cholesterol Direct HDL Cholesterol Urine pH Urine WBC (Auto) Urine Creatinine Urine Total Protein Fluid Total Protein Vancomycin Trough Rheumatoid Factor Complement C4 Miscellaneous Test Crossmatch See Detail 10/09/16 10/09/16 10/09/16 11:46 16:20 16:43 WBC RBC Hgb 7.2 L Hct 22.2 L MCV MCH MCHC RDW Plt Count Lymph % (Auto) [place] % (Auto) Lymph # [place] # Baso # Seg Neutrophils % Seg Neuts % (Manual) Lymphocytes % (Manual) Monocytes % (Manual) Eosinophils % (Manual) Basophils % (Manual) Nucleated RBC % Seg Neutrophils # Seg Neutrophils # Man Lymphocytes # (Manual) Monocytes # (Manual) Eosinophils # (Manual) Basophils # (Manual) PT INR Fibrinogen dRVVT Confirm Interp Factor V Activity POC ABG pH POC ABG pCO2 POC ABG pO2 ABG pO2 ABG HCO3 ABG Base Excess ABG Hemoglobin Oxyhemoglobin Sodium Potassium Chloride Carbon Dioxide BUN Creatinine Glucose POC Glucose 133 H 141 H Lactic Acid Calcium Phosphorus Magnesium Direct Bilirubin AST ALT Alkaline Phosphatase Lactate Dehydrogenase Troponin T C-Reactive Protein Total Protein Albumin Prealbumin Triglycerides Cholesterol LDL Cholesterol Direct HDL Cholesterol Urine pH Urine WBC (Auto) Urine Creatinine Urine Total Protein Fluid Total Protein Vancomycin Trough Rheumatoid Factor Complement C4 Miscellaneous Test Crossmatch 10/10/16 10/10/16 10/10/16 05:00 05:00 11:19 WBC 18.5 H RBC 2.19 L Hgb 6.4 L Hct 19.6 L* MCV MCH MCHC RDW 19.3 H Plt Count 93 L Lymph % (Auto) [place] % (Auto) Lymph # [place] # Baso # Seg Neutrophils % Seg Neuts % (Manual) Lymphocytes % (Manual) 10.0 L Monocytes % (Manual) Eosinophils % (Manual) Basophils % (Manual) Nucleated RBC % 4.0 H Seg Neutrophils # Seg Neutrophils # Man 11.3 H Lymphocytes # (Manual) Monocytes # (Manual) Eosinophils # (Manual) Basophils # (Manual) PT INR Fibrinogen dRVVT Confirm Interp Factor V Activity POC ABG pH POC ABG pCO2 POC ABG pO2 ABG pO2 ABG HCO3 ABG Base Excess ABG Hemoglobin Oxyhemoglobin Sodium Potassium 5.7 H D Chloride Carbon Dioxide 16 L BUN 94 H Creatinine 3.1 H Glucose 131 H POC Glucose 153 H Lactic Acid Calcium 8.2 L Phosphorus 5.10 H Magnesium 2.40 H Direct Bilirubin 0.3 H AST ALT < 5 L Alkaline Phosphatase 319 H Lactate Dehydrogenase Troponin T C-Reactive Protein Total Protein 5.1 L Albumin 1.0 L Prealbumin Triglycerides Cholesterol LDL Cholesterol Direct HDL Cholesterol Urine pH Urine WBC (Auto) Urine Creatinine Urine Total Protein Fluid Total Protein Vancomycin Trough Rheumatoid Factor Complement C4 Miscellaneous Test Crossmatch 10/10/16 10/10/16 10/11/16 17:50 23:30 04:15 WBC RBC Hgb Hct MCV MCH MCHC RDW Plt Count Lymph % (Auto) [place] % (Auto) Lymph # [place] # Baso # Seg Neutrophils % Seg Neuts % (Manual) Lymphocytes % (Manual) Monocytes % (Manual) Eosinophils % (Manual) Basophils % (Manual) Nucleated RBC % Seg Neutrophils # Seg Neutrophils # Man Lymphocytes # (Manual) Monocytes # (Manual) Eosinophils # (Manual) Basophils # (Manual) PT INR Fibrinogen dRVVT Confirm Interp Factor V Activity POC ABG pH POC ABG pCO2 POC ABG pO2 ABG pO2 ABG HCO3 ABG Base Excess ABG Hemoglobin Oxyhemoglobin Sodium Potassium Chloride 96.4 L Carbon Dioxide 21 L BUN 57 H Creatinine 2.1 H Glucose 151 H POC Glucose 146 H 141 H Lactic Acid Calcium 8.3 L Phosphorus Magnesium Direct Bilirubin AST ALT Alkaline Phosphatase Lactate Dehydrogenase Troponin T C-Reactive Protein Total Protein Albumin Prealbumin Triglycerides Cholesterol LDL Cholesterol Direct HDL Cholesterol Urine pH Urine WBC (Auto) Urine Creatinine Urine Total Protein Fluid Total Protein Vancomycin Trough Rheumatoid Factor Complement C4 Miscellaneous Test Crossmatch 10/11/16 10/11/16 10/11/16 04:15 04:15 05:30 WBC 28.3 H RBC 3.12 L Hgb 9.3 L Hct 28.7 L D MCV MCH MCHC RDW 17.7 H Plt Count 128 L Lymph % (Auto) [place] % (Auto) Lymph # [place] # Baso # Seg Neutrophils % Seg Neuts % (Manual) Lymphocytes % (Manual) Monocytes % (Manual) Eosinophils % (Manual) Basophils % (Manual) Nucleated RBC % Seg Neutrophils # Seg Neutrophils # Man Lymphocytes # (Manual) Monocytes # (Manual) Eosinophils # (Manual) Basophils # (Manual) PT INR Fibrinogen dRVVT Confirm Interp Factor V Activity POC ABG pH POC ABG pCO2 POC ABG pO2 ABG pO2 ABG HCO3 ABG Base Excess ABG Hemoglobin Oxyhemoglobin Sodium Potassium Chloride Carbon Dioxide BUN Creatinine Glucose POC Glucose 167 H Lactic Acid Calcium Phosphorus Magnesium Direct Bilirubin AST ALT Alkaline Phosphatase Lactate Dehydrogenase Troponin T C-Reactive Protein 15.80 H Total Protein Albumin Prealbumin Triglycerides Cholesterol LDL Cholesterol Direct HDL Cholesterol Urine pH Urine WBC (Auto) Urine Creatinine Urine Total Protein Fluid Total Protein Vancomycin Trough Rheumatoid Factor Complement C4 Miscellaneous Test Crossmatch 10/11/16 10/11/16 10/11/16 11:40 15:49 23:57 WBC RBC Hgb Hct MCV MCH MCHC RDW Plt Count Lymph % (Auto) [place] % (Auto) Lymph # [place] # Baso # Seg Neutrophils % Seg Neuts % (Manual) Lymphocytes % (Manual) Monocytes % (Manual) Eosinophils % (Manual) Basophils % (Manual) Nucleated RBC % Seg Neutrophils # Seg Neutrophils # Man Lymphocytes # (Manual) Monocytes # (Manual) Eosinophils # (Manual) Basophils # (Manual) PT INR Fibrinogen dRVVT Confirm Interp Factor V Activity POC ABG pH POC ABG pCO2 POC ABG pO2 ABG pO2 ABG HCO3 ABG Base Excess ABG Hemoglobin Oxyhemoglobin Sodium Potassium Chloride Carbon Dioxide BUN Creatinine Glucose POC Glucose 139 H 168 H 161 H Lactic Acid Calcium Phosphorus Magnesium Direct Bilirubin AST ALT Alkaline Phosphatase Lactate Dehydrogenase Troponin T C-Reactive Protein Total Protein Albumin Prealbumin Triglycerides Cholesterol LDL Cholesterol Direct HDL Cholesterol Urine pH Urine WBC (Auto) Urine Creatinine Urine Total Protein Fluid Total Protein Vancomycin Trough Rheumatoid Factor Complement C4 Miscellaneous Test Crossmatch 10/12/16 10/12/16 10/12/16 04:40 04:40 05:44 WBC 22.5 H RBC 2.88 L Hgb 8.8 L Hct 26.8 L MCV MCH MCHC RDW 17.8 H Plt Count Lymph % (Auto) [place] % (Auto) Lymph # [place] # Baso # Seg Neutrophils % Seg Neuts % (Manual) Lymphocytes % (Manual) Monocytes % (Manual) Eosinophils % (Manual) Basophils % (Manual) Nucleated RBC % Seg Neutrophils # Seg Neutrophils # Man Lymphocytes # (Manual) Monocytes # (Manual) Eosinophils # (Manual) Basophils # (Manual) PT INR Fibrinogen dRVVT Confirm Interp Factor V Activity POC ABG pH POC ABG pCO2 POC ABG pO2 ABG pO2 ABG HCO3 ABG Base Excess ABG Hemoglobin Oxyhemoglobin Sodium 134 L Potassium Chloride 93.0 L Carbon Dioxide BUN 74 H Creatinine 2.5 H Glucose 137 H POC Glucose 158 H Lactic Acid Calcium 8.2 L Phosphorus Magnesium Direct Bilirubin AST ALT Alkaline Phosphatase Lactate Dehydrogenase Troponin T C-Reactive Protein Total Protein Albumin Prealbumin Triglycerides Cholesterol LDL Cholesterol Direct HDL Cholesterol Urine pH Urine WBC (Auto) Urine Creatinine Urine Total Protein Fluid Total Protein Vancomycin Trough Rheumatoid Factor Complement C4 Miscellaneous Test Crossmatch 10/12/16 10/12/16 10/12/16 12:27 18:18 23:46 WBC RBC Hgb Hct MCV MCH MCHC RDW Plt Count Lymph % (Auto) [place] % (Auto) Lymph # [place] # Baso # Seg Neutrophils % Seg Neuts % (Manual) Lymphocytes % (Manual) Monocytes % (Manual) Eosinophils % (Manual) Basophils % (Manual) Nucleated RBC % Seg Neutrophils # Seg Neutrophils # Man Lymphocytes # (Manual) Monocytes # (Manual) Eosinophils # (Manual) Basophils # (Manual) PT INR Fibrinogen dRVVT Confirm Interp Factor V Activity POC ABG pH POC ABG pCO2 POC ABG pO2 ABG pO2 ABG HCO3 ABG Base Excess ABG Hemoglobin Oxyhemoglobin Sodium Potassium Chloride Carbon Dioxide BUN Creatinine Glucose POC Glucose 153 H 140 H 150 H Lactic Acid Calcium Phosphorus Magnesium Direct Bilirubin AST ALT Alkaline Phosphatase Lactate Dehydrogenase Troponin T C-Reactive Protein Total Protein Albumin Prealbumin Triglycerides Cholesterol LDL Cholesterol Direct HDL Cholesterol Urine pH Urine WBC (Auto) Urine Creatinine Urine Total Protein Fluid Total Protein Vancomycin Trough Rheumatoid Factor Complement C4 Miscellaneous Test Crossmatch 10/13/16 10/13/16 10/13/16 06:22 09:20 12:29 WBC RBC Hgb Hct MCV MCH MCHC RDW Plt Count Lymph % (Auto) [place] % (Auto) Lymph # [place] # Baso # Seg Neutrophils % Seg Neuts % (Manual) Lymphocytes % (Manual) Monocytes % (Manual) Eosinophils % (Manual) Basophils % (Manual) Nucleated RBC % Seg Neutrophils # Seg Neutrophils # Man Lymphocytes # (Manual) Monocytes # (Manual) Eosinophils # (Manual) Basophils # (Manual) PT INR Fibrinogen dRVVT Confirm Interp Factor V Activity POC ABG pH POC ABG pCO2 POC ABG pO2 ABG pO2 ABG HCO3 ABG Base Excess ABG Hemoglobin Oxyhemoglobin Sodium Potassium Chloride Carbon Dioxide BUN Creatinine Glucose POC Glucose 165 H 193 H Lactic Acid Calcium Phosphorus Magnesium Direct Bilirubin AST ALT Alkaline Phosphatase Lactate Dehydrogenase Troponin T C-Reactive Protein Total Protein Albumin Prealbumin Triglycerides Cholesterol LDL Cholesterol Direct HDL Cholesterol Urine pH Urine WBC (Auto) Urine Creatinine Urine Total Protein Fluid Total Protein Vancomycin Trough Rheumatoid Factor Complement C4 Miscellaneous Test Flexitest 1 H Crossmatch 10/13/16 10/13/16 10/13/16 18:09 Unknown Unknown WBC 23.4 H RBC 2.83 L Hgb 8.7 L Hct 26.1 L MCV MCH MCHC RDW 18.1 H Plt Count Lymph % (Auto) [place] % (Auto) Lymph # [place] # Baso # Seg Neutrophils % Seg Neuts % (Manual) Lymphocytes % (Manual) Monocytes % (Manual) Eosinophils % (Manual) Basophils % (Manual) Nucleated RBC % Seg Neutrophils # Seg Neutrophils # Man Lymphocytes # (Manual) Monocytes # (Manual) Eosinophils # (Manual) Basophils # (Manual) PT INR Fibrinogen dRVVT Confirm Interp Factor V Activity POC ABG pH POC ABG pCO2 POC ABG pO2 ABG pO2 ABG HCO3 ABG Base Excess ABG Hemoglobin Oxyhemoglobin Sodium Potassium Chloride 95.8 L Carbon Dioxide BUN 82 H Creatinine 2.6 H Glucose 152 H POC Glucose 166 H Lactic Acid Calcium Phosphorus Magnesium Direct Bilirubin AST ALT Alkaline Phosphatase Lactate Dehydrogenase Troponin T C-Reactive Protein Total Protein Albumin Prealbumin Triglycerides Cholesterol LDL Cholesterol Direct HDL Cholesterol Urine pH Urine WBC (Auto) Urine Creatinine Urine Total Protein Fluid Total Protein Vancomycin Trough Rheumatoid Factor Complement C4 Miscellaneous Test Crossmatch 10/14/16 10/14/16 10/14/16 05:38 06:35 08:10 WBC 20.7 H RBC 2.81 L Hgb 8.4 L Hct 27.2 L MCV MCH MCHC RDW 19.4 H Plt Count Lymph % (Auto) [place] % (Auto) Lymph # [place] # Baso # Seg Neutrophils % Seg Neuts % (Manual) Lymphocytes % (Manual) Monocytes % (Manual) Eosinophils % (Manual) Basophils % (Manual) Nucleated RBC % Seg Neutrophils # Seg Neutrophils # Man Lymphocytes # (Manual) Monocytes # (Manual) Eosinophils # (Manual) Basophils # (Manual) PT INR Fibrinogen dRVVT Confirm Interp Factor V Activity POC ABG pH POC ABG pCO2 POC ABG pO2 ABG pO2 ABG HCO3 ABG Base Excess ABG Hemoglobin Oxyhemoglobin Sodium Potassium Chloride Carbon Dioxide BUN 58 H Creatinine 1.9 H Glucose 169 H POC Glucose 195 H Lactic Acid Calcium Phosphorus Magnesium Direct Bilirubin AST ALT Alkaline Phosphatase Lactate Dehydrogenase Troponin T C-Reactive Protein Total Protein Albumin Prealbumin Triglycerides Cholesterol LDL Cholesterol Direct HDL Cholesterol Urine pH Urine WBC (Auto) Urine Creatinine Urine Total Protein Fluid Total Protein Vancomycin Trough Rheumatoid Factor Complement C4 Miscellaneous Test Crossmatch 10/14/16 10/14/16 10/14/16 11:44 17:13 23:28 WBC RBC Hgb Hct MCV MCH MCHC RDW Plt Count Lymph % (Auto) [place] % (Auto) Lymph # [place] # Baso # Seg Neutrophils % Seg Neuts % (Manual) Lymphocytes % (Manual) Monocytes % (Manual) Eosinophils % (Manual) Basophils % (Manual) Nucleated RBC % Seg Neutrophils # Seg Neutrophils # Man Lymphocytes # (Manual) Monocytes # (Manual) Eosinophils # (Manual) Basophils # (Manual) PT INR Fibrinogen dRVVT Confirm Interp Factor V Activity POC ABG pH POC ABG pCO2 POC ABG pO2 ABG pO2 ABG HCO3 ABG Base Excess ABG Hemoglobin Oxyhemoglobin Sodium Potassium Chloride Carbon Dioxide BUN Creatinine Glucose POC Glucose 174 H 121 H 151 H Lactic Acid Calcium Phosphorus Magnesium Direct Bilirubin AST ALT Alkaline Phosphatase Lactate Dehydrogenase Troponin T C-Reactive Protein Total Protein Albumin Prealbumin Triglycerides Cholesterol LDL Cholesterol Direct HDL Cholesterol Urine pH Urine WBC (Auto) Urine Creatinine Urine Total Protein Fluid Total Protein Vancomycin Trough Rheumatoid Factor Complement C4 Miscellaneous Test Crossmatch 10/15/16 10/15/16 10/15/16 05:06 12:26 17:48 WBC RBC Hgb Hct MCV MCH MCHC RDW Plt Count Lymph % (Auto) [place] % (Auto) Lymph # [place] # Baso # Seg Neutrophils % Seg Neuts % (Manual) Lymphocytes % (Manual) Monocytes % (Manual) Eosinophils % (Manual) Basophils % (Manual) Nucleated RBC % Seg Neutrophils # Seg Neutrophils # Man Lymphocytes # (Manual) Monocytes # (Manual) Eosinophils # (Manual) Basophils # (Manual) PT INR Fibrinogen dRVVT Confirm Interp Factor V Activity POC ABG pH POC ABG pCO2 POC ABG pO2 ABG pO2 ABG HCO3 ABG Base Excess ABG Hemoglobin Oxyhemoglobin Sodium Potassium Chloride Carbon Dioxide BUN Creatinine Glucose POC Glucose 151 H 149 H 153 H Lactic Acid Calcium Phosphorus Magnesium Direct Bilirubin AST ALT Alkaline Phosphatase Lactate Dehydrogenase Troponin T C-Reactive Protein Total Protein Albumin Prealbumin Triglycerides Cholesterol LDL Cholesterol Direct HDL Cholesterol Urine pH Urine WBC (Auto) Urine Creatinine Urine Total Protein Fluid Total Protein Vancomycin Trough Rheumatoid Factor Complement C4 Miscellaneous Test Crossmatch 10/15/16 10/15/16 10/16/16 Unknown Unknown 00:02 WBC 23.4 H RBC 2.78 L Hgb 8.5 L Hct 25.7 L MCV MCH MCHC RDW 18.7 H Plt Count Lymph % (Auto) [place] % (Auto) Lymph # [place] # Baso # Seg Neutrophils % Seg Neuts % (Manual) Lymphocytes % (Manual) Monocytes % (Manual) Eosinophils % (Manual) Basophils % (Manual) Nucleated RBC % Seg Neutrophils # Seg Neutrophils # Man Lymphocytes # (Manual) Monocytes # (Manual) Eosinophils # (Manual) Basophils # (Manual) PT INR Fibrinogen dRVVT Confirm Interp Factor V Activity POC ABG pH POC ABG pCO2 POC ABG pO2 ABG pO2 ABG HCO3 ABG Base Excess ABG Hemoglobin Oxyhemoglobin Sodium Potassium Chloride Carbon Dioxide BUN 73 H Creatinine 2.3 H Glucose 120 H POC Glucose 137 H Lactic Acid Calcium Phosphorus Magnesium Direct Bilirubin AST ALT Alkaline Phosphatase Lactate Dehydrogenase Troponin T C-Reactive Protein Total Protein Albumin Prealbumin Triglycerides Cholesterol LDL Cholesterol Direct HDL Cholesterol Urine pH Urine WBC (Auto) Urine Creatinine Urine Total Protein Fluid Total Protein Vancomycin Trough Rheumatoid Factor Complement C4 Miscellaneous Test Crossmatch 10/16/16 10/16/16 10/16/16 05:44 06:25 06:25 WBC 22.5 H RBC 2.76 L Hgb 8.3 L Hct 25.2 L MCV MCH MCHC RDW 18.3 H Plt Count Lymph % (Auto) [place] % (Auto) Lymph # [place] # Baso # Seg Neutrophils % Seg Neuts % (Manual) Lymphocytes % (Manual) Monocytes % (Manual) Eosinophils % (Manual) Basophils % (Manual) Nucleated RBC % Seg Neutrophils # Seg Neutrophils # Man Lymphocytes # (Manual) Monocytes # (Manual) Eosinophils # (Manual) Basophils # (Manual) PT INR Fibrinogen dRVVT Confirm Interp Factor V Activity POC ABG pH POC ABG pCO2 POC ABG pO2 ABG pO2 ABG HCO3 ABG Base Excess ABG Hemoglobin Oxyhemoglobin Sodium Potassium Chloride Carbon Dioxide BUN 92 H Creatinine 3.0 H Glucose 138 H POC Glucose 110 H Lactic Acid Calcium Phosphorus Magnesium Direct Bilirubin AST ALT Alkaline Phosphatase Lactate Dehydrogenase Troponin T C-Reactive Protein Total Protein Albumin Prealbumin Triglycerides Cholesterol LDL Cholesterol Direct HDL Cholesterol Urine pH Urine WBC (Auto) Urine Creatinine Urine Total Protein Fluid Total Protein Vancomycin Trough Rheumatoid Factor Complement C4 Miscellaneous Test Crossmatch 10/16/16 10/16/16 10/16/16 11:27 11:48 17:36 WBC RBC Hgb Hct MCV MCH MCHC RDW Plt Count Lymph % (Auto) [place] % (Auto) Lymph # [place] # Baso # Seg Neutrophils % Seg Neuts % (Manual) Lymphocytes % (Manual) Monocytes % (Manual) Eosinophils % (Manual) Basophils % (Manual) Nucleated RBC % Seg Neutrophils # Seg Neutrophils # Man Lymphocytes # (Manual) Monocytes # (Manual) Eosinophils # (Manual) Basophils # (Manual) PT INR Fibrinogen dRVVT Confirm Interp Factor V Activity POC ABG pH 7.582 H POC ABG pCO2 27.4 L POC ABG pO2 110 H ABG pO2 ABG HCO3 ABG Base Excess ABG Hemoglobin Oxyhemoglobin Sodium Potassium Chloride Carbon Dioxide BUN Creatinine Glucose POC Glucose 121 H 133 H Lactic Acid Calcium Phosphorus Magnesium Direct Bilirubin AST ALT Alkaline Phosphatase Lactate Dehydrogenase Troponin T C-Reactive Protein Total Protein Albumin Prealbumin Triglycerides Cholesterol LDL Cholesterol Direct HDL Cholesterol Urine pH Urine WBC (Auto) Urine Creatinine Urine Total Protein Fluid Total Protein Vancomycin Trough Rheumatoid Factor Complement C4 Miscellaneous Test Crossmatch 10/16/16 10/17/16 10/17/16 20:48 04:24 04:24 WBC 21.4 H RBC 2.72 L Hgb 8.0 L Hct 25.2 L MCV MCH MCHC RDW 18.0 H Plt Count Lymph % (Auto) [place] % (Auto) Lymph # [place] # Baso # Seg Neutrophils % Seg Neuts % (Manual) Lymphocytes % (Manual) Monocytes % (Manual) Eosinophils % (Manual) Basophils % (Manual) Nucleated RBC % Seg Neutrophils # Seg Neutrophils # Man Lymphocytes # (Manual) Monocytes # (Manual) Eosinophils # (Manual) Basophils # (Manual) PT INR Fibrinogen dRVVT Confirm Interp Factor V Activity POC ABG pH 7.561 H POC ABG pCO2 24.4 L POC ABG pO2 77 L ABG pO2 ABG HCO3 ABG Base Excess ABG Hemoglobin Oxyhemoglobin Sodium 148 H Potassium Chloride Carbon Dioxide BUN 104 H Creatinine 3.0 H Glucose 149 H POC Glucose Lactic Acid Calcium Phosphorus Magnesium Direct Bilirubin AST ALT Alkaline Phosphatase 138 H Lactate Dehydrogenase Troponin T C-Reactive Protein Total Protein 6.2 L Albumin 1.5 L Prealbumin Triglycerides Cholesterol LDL Cholesterol Direct HDL Cholesterol Urine pH Urine WBC (Auto) Urine Creatinine Urine Total Protein Fluid Total Protein Vancomycin Trough Rheumatoid Factor Complement C4 Miscellaneous Test Crossmatch 10/17/16 10/17/16 10/17/16 06:02 12:17 17:14 WBC RBC Hgb Hct MCV MCH MCHC RDW Plt Count Lymph % (Auto) [place] % (Auto) Lymph # [place] # Baso # Seg Neutrophils % Seg Neuts % (Manual) Lymphocytes % (Manual) Monocytes % (Manual) Eosinophils % (Manual) Basophils % (Manual) Nucleated RBC % Seg Neutrophils # Seg Neutrophils # Man Lymphocytes # (Manual) Monocytes # (Manual) Eosinophils # (Manual) Basophils # (Manual) PT INR Fibrinogen dRVVT Confirm Interp Factor V Activity POC ABG pH POC ABG pCO2 POC ABG pO2 ABG pO2 ABG HCO3 ABG Base Excess ABG Hemoglobin Oxyhemoglobin Sodium Potassium Chloride Carbon Dioxide BUN Creatinine Glucose POC Glucose 170 H 167 H 126 H Lactic Acid Calcium Phosphorus Magnesium Direct Bilirubin AST ALT Alkaline Phosphatase Lactate Dehydrogenase Troponin T C-Reactive Protein Total Protein Albumin Prealbumin Triglycerides Cholesterol LDL Cholesterol Direct HDL Cholesterol Urine pH Urine WBC (Auto) Urine Creatinine Urine Total Protein Fluid Total Protein Vancomycin Trough Rheumatoid Factor Complement C4 Miscellaneous Test Crossmatch 10/17/16 10/18/16 10/18/16 23:17 04:00 04:00 WBC 20.7 H RBC 2.47 L Hgb 7.4 L Hct 22.9 L MCV MCH MCHC RDW 17.5 H Plt Count Lymph % (Auto) [place] % (Auto) Lymph # [place] # Baso # Seg Neutrophils % Seg Neuts % (Manual) Lymphocytes % (Manual) Monocytes % (Manual) Eosinophils % (Manual) Basophils % (Manual) Nucleated RBC % Seg Neutrophils # Seg Neutrophils # Man Lymphocytes # (Manual) Monocytes # (Manual) Eosinophils # (Manual) Basophils # (Manual) PT INR Fibrinogen dRVVT Confirm Interp Factor V Activity POC ABG pH POC ABG pCO2 POC ABG pO2 ABG pO2 ABG HCO3 ABG Base Excess ABG Hemoglobin Oxyhemoglobin Sodium 149 H Potassium Chloride 107.9 H Carbon Dioxide 20 L BUN 117 H Creatinine 3.2 H Glucose 119 H POC Glucose 121 H Lactic Acid Calcium Phosphorus Magnesium Direct Bilirubin AST ALT Alkaline Phosphatase Lactate Dehydrogenase Troponin T C-Reactive Protein Total Protein Albumin Prealbumin Triglycerides Cholesterol LDL Cholesterol Direct HDL Cholesterol Urine pH Urine WBC (Auto) Urine Creatinine Urine Total Protein Fluid Total Protein Vancomycin Trough Rheumatoid Factor Complement C4 Miscellaneous Test Crossmatch 10/18/16 10/18/16 10/18/16 05:23 10:46 17:30 WBC RBC Hgb Hct MCV MCH MCHC RDW Plt Count Lymph % (Auto) [place] % (Auto) Lymph # [place] # Baso # Seg Neutrophils % Seg Neuts % (Manual) Lymphocytes % (Manual) Monocytes % (Manual) Eosinophils % (Manual) Basophils % (Manual) Nucleated RBC % Seg Neutrophils # Seg Neutrophils # Man Lymphocytes # (Manual) Monocytes # (Manual) Eosinophils # (Manual) Basophils # (Manual) PT INR Fibrinogen dRVVT Confirm Interp Factor V Activity POC ABG pH POC ABG pCO2 POC ABG pO2 ABG pO2 ABG HCO3 ABG Base Excess ABG Hemoglobin Oxyhemoglobin Sodium Potassium Chloride Carbon Dioxide BUN Creatinine Glucose POC Glucose 119 H 155 H 124 H Lactic Acid Calcium Phosphorus Magnesium Direct Bilirubin AST ALT Alkaline Phosphatase Lactate Dehydrogenase Troponin T C-Reactive Protein Total Protein Albumin Prealbumin Triglycerides Cholesterol LDL Cholesterol Direct HDL Cholesterol Urine pH Urine WBC (Auto) Urine Creatinine Urine Total Protein Fluid Total Protein Vancomycin Trough Rheumatoid Factor Complement C4 Miscellaneous Test Crossmatch 10/19/16 10/19/16 10/19/16 04:00 04:00 05:25 WBC 17.4 H RBC 2.54 L Hgb 7.7 L Hct 23.6 L MCV MCH MCHC RDW 17.3 H Plt Count Lymph % (Auto) [place] % (Auto) Lymph # [place] # Baso # Seg Neutrophils % Seg Neuts % (Manual) Lymphocytes % (Manual) Monocytes % (Manual) Eosinophils % (Manual) Basophils % (Manual) Nucleated RBC % Seg Neutrophils # Seg Neutrophils # Man Lymphocytes # (Manual) Monocytes # (Manual) Eosinophils # (Manual) Basophils # (Manual) PT INR Fibrinogen dRVVT Confirm Interp Factor V Activity POC ABG pH POC ABG pCO2 POC ABG pO2 ABG pO2 ABG HCO3 ABG Base Excess ABG Hemoglobin Oxyhemoglobin Sodium Potassium Chloride Carbon Dioxide BUN 72 H Creatinine 2.1 H Glucose 116 H POC Glucose 119 H Lactic Acid Calcium Phosphorus Magnesium Direct Bilirubin AST ALT Alkaline Phosphatase Lactate Dehydrogenase Troponin T C-Reactive Protein Total Protein Albumin Prealbumin Triglycerides Cholesterol LDL Cholesterol Direct HDL Cholesterol Urine pH Urine WBC (Auto) Urine Creatinine Urine Total Protein Fluid Total Protein Vancomycin Trough Rheumatoid Factor Complement C4 Miscellaneous Test Crossmatch 10/19/16 10/19/16 10/20/16 11:46 23:59 06:00 WBC RBC Hgb Hct MCV MCH MCHC RDW Plt Count Lymph % (Auto) [place] % (Auto) Lymph # [place] # Baso # Seg Neutrophils % Seg Neuts % (Manual) Lymphocytes % (Manual) Monocytes % (Manual) Eosinophils % (Manual) Basophils % (Manual) Nucleated RBC % Seg Neutrophils # Seg Neutrophils # Man Lymphocytes # (Manual) Monocytes # (Manual) Eosinophils # (Manual) Basophils # (Manual) PT INR Fibrinogen dRVVT Confirm Interp Factor V Activity POC ABG pH POC ABG pCO2 POC ABG pO2 ABG pO2 ABG HCO3 ABG Base Excess ABG Hemoglobin Oxyhemoglobin Sodium Potassium Chloride Carbon Dioxide 17 L BUN 94 H Creatinine 2.7 H Glucose POC Glucose 116 H 117 H Lactic Acid Calcium Phosphorus Magnesium Direct Bilirubin AST ALT Alkaline Phosphatase Lactate Dehydrogenase Troponin T C-Reactive Protein Total Protein Albumin Prealbumin Triglycerides Cholesterol LDL Cholesterol Direct HDL Cholesterol Urine pH Urine WBC (Auto) Urine Creatinine Urine Total Protein Fluid Total Protein Vancomycin Trough Rheumatoid Factor Complement C4 Miscellaneous Test Crossmatch 10/20/16 10/20/16 10/20/16 06:00 11:49 16:00 WBC 19.7 H RBC 2.51 L Hgb 7.7 L Hct 23.5 L MCV MCH MCHC RDW 17.5 H Plt Count Lymph % (Auto) [place] % (Auto) Lymph # [place] # Baso # Seg Neutrophils % Seg Neuts % (Manual) Lymphocytes % (Manual) Monocytes % (Manual) Eosinophils % (Manual) Basophils % (Manual) Nucleated RBC % Seg Neutrophils # Seg Neutrophils # Man Lymphocytes # (Manual) Monocytes # (Manual) Eosinophils # (Manual) Basophils # (Manual) PT INR Fibrinogen dRVVT Confirm Interp Factor V Activity POC ABG pH POC ABG pCO2 POC ABG pO2 ABG pO2 ABG HCO3 ABG Base Excess ABG Hemoglobin Oxyhemoglobin Sodium Potassium Chloride Carbon Dioxide BUN Creatinine Glucose POC Glucose 117 H Lactic Acid Calcium Phosphorus Magnesium Direct Bilirubin AST ALT Alkaline Phosphatase Lactate Dehydrogenase Troponin T C-Reactive Protein Total Protein Albumin Prealbumin Triglycerides Cholesterol LDL Cholesterol Direct HDL Cholesterol Urine pH Urine WBC (Auto) Urine Creatinine Urine Total Protein Fluid Total Protein Vancomycin Trough Rheumatoid Factor Complement C4 Miscellaneous Test Flexitest 1 H Crossmatch 10/20/16 10/20/16 10/21/16 18:36 23:39 04:00 WBC RBC Hgb Hct MCV MCH MCHC RDW Plt Count Lymph % (Auto) [place] % (Auto) Lymph # [place] # Baso # Seg Neutrophils % Seg Neuts % (Manual) Lymphocytes % (Manual) Monocytes % (Manual) Eosinophils % (Manual) Basophils % (Manual) Nucleated RBC % Seg Neutrophils # Seg Neutrophils # Man Lymphocytes # (Manual) Monocytes # (Manual) Eosinophils # (Manual) Basophils # (Manual) PT INR Fibrinogen dRVVT Confirm Interp Factor V Activity POC ABG pH POC ABG pCO2 POC ABG pO2 ABG pO2 ABG HCO3 ABG Base Excess ABG Hemoglobin Oxyhemoglobin Sodium Potassium 5.4 H D Chloride Carbon Dioxide 15 L BUN 110 H Creatinine 3.0 H Glucose POC Glucose 127 H 114 H Lactic Acid Calcium Phosphorus Magnesium Direct Bilirubin AST ALT Alkaline Phosphatase Lactate Dehydrogenase Troponin T C-Reactive Protein Total Protein Albumin Prealbumin Triglycerides Cholesterol LDL Cholesterol Direct HDL Cholesterol Urine pH Urine WBC (Auto) Urine Creatinine Urine Total Protein Fluid Total Protein Vancomycin Trough Rheumatoid Factor Complement C4 Miscellaneous Test Crossmatch 10/21/16 10/21/16 10/22/16 05:54 23:46 05:18 WBC RBC Hgb Hct MCV MCH MCHC RDW Plt Count Lymph % (Auto) [place] % (Auto) Lymph # [place] # Baso # Seg Neutrophils % Seg Neuts % (Manual) Lymphocytes % (Manual) Monocytes % (Manual) Eosinophils % (Manual) Basophils % (Manual) Nucleated RBC % Seg Neutrophils # Seg Neutrophils # Man Lymphocytes # (Manual) Monocytes # (Manual) Eosinophils # (Manual) Basophils # (Manual) PT INR Fibrinogen dRVVT Confirm Interp Factor V Activity POC ABG pH POC ABG pCO2 POC ABG pO2 ABG pO2 ABG HCO3 ABG Base Excess ABG Hemoglobin Oxyhemoglobin Sodium Potassium Chloride Carbon Dioxide BUN Creatinine Glucose POC Glucose 119 H 108 H 109 H Lactic Acid Calcium Phosphorus Magnesium Direct Bilirubin AST ALT Alkaline Phosphatase Lactate Dehydrogenase Troponin T C-Reactive Protein Total Protein Albumin Prealbumin Triglycerides Cholesterol LDL Cholesterol Direct HDL Cholesterol Urine pH Urine WBC (Auto) Urine Creatinine Urine Total Protein Fluid Total Protein Vancomycin Trough Rheumatoid Factor Complement C4 Miscellaneous Test Crossmatch 10/22/16 10/22/16 10/22/16 06:40 06:40 06:40 WBC 14.0 H RBC 2.03 L Hgb 7.0 L Hct 20.5 L MCV 98 H MCH 34 H MCHC 35 H RDW 17.8 H Plt Count Lymph % (Auto) [place] % (Auto) 9.9 H Lymph # [place] # 1.4 H Baso # 0.2 H Seg Neutrophils % 72.0 H Seg Neuts % (Manual) Lymphocytes % (Manual) Monocytes % (Manual) Eosinophils % (Manual) Basophils % (Manual) Nucleated RBC % Seg Neutrophils # 10.0 H Seg Neutrophils # Man Lymphocytes # (Manual) Monocytes # (Manual) Eosinophils # (Manual) Basophils # (Manual) PT INR Fibrinogen dRVVT Confirm Interp Factor V Activity POC ABG pH POC ABG pCO2 POC ABG pO2 ABG pO2 ABG HCO3 ABG Base Excess ABG Hemoglobin Oxyhemoglobin Sodium 130 L D Potassium Chloride 92.4 L Carbon Dioxide 20 L BUN 50 H Creatinine 1.6 H Glucose 589 H* POC Glucose Lactic Acid Calcium 7.8 L D Phosphorus Magnesium 1.60 L Direct Bilirubin AST ALT Alkaline Phosphatase Lactate Dehydrogenase Troponin T C-Reactive Protein Total Protein Albumin Prealbumin Triglycerides Cholesterol LDL Cholesterol Direct HDL Cholesterol Urine pH Urine WBC (Auto) Urine Creatinine Urine Total Protein Fluid Total Protein Vancomycin Trough Rheumatoid Factor Complement C4 Miscellaneous Test Crossmatch 10/22/16 10/22/16 10/22/16 11:39 16:44 23:36 WBC RBC Hgb Hct MCV MCH MCHC RDW Plt Count Lymph % (Auto) [place] % (Auto) Lymph # [place] # Baso # Seg Neutrophils % Seg Neuts % (Manual) Lymphocytes % (Manual) Monocytes % (Manual) Eosinophils % (Manual) Basophils % (Manual) Nucleated RBC % Seg Neutrophils # Seg Neutrophils # Man Lymphocytes # (Manual) Monocytes # (Manual) Eosinophils # (Manual) Basophils # (Manual) PT INR Fibrinogen dRVVT Confirm Interp Factor V Activity POC ABG pH POC ABG pCO2 POC ABG pO2 ABG pO2 ABG HCO3 ABG Base Excess ABG Hemoglobin Oxyhemoglobin Sodium Potassium Chloride Carbon Dioxide BUN Creatinine Glucose POC Glucose 142 H 163 H 123 H Lactic Acid Calcium Phosphorus Magnesium Direct Bilirubin AST ALT Alkaline Phosphatase Lactate Dehydrogenase Troponin T C-Reactive Protein Total Protein Albumin Prealbumin Triglycerides Cholesterol LDL Cholesterol Direct HDL Cholesterol Urine pH Urine WBC (Auto) Urine Creatinine Urine Total Protein Fluid Total Protein Vancomycin Trough Rheumatoid Factor Complement C4 Miscellaneous Test Crossmatch 10/23/16 10/23/16 10/23/16 04:58 06:00 12:12 WBC RBC Hgb Hct MCV MCH MCHC RDW Plt Count Lymph % (Auto) [place] % (Auto) Lymph # [place] # Baso # Seg Neutrophils % Seg Neuts % (Manual) Lymphocytes % (Manual) Monocytes % (Manual) Eosinophils % (Manual) Basophils % (Manual) Nucleated RBC % Seg Neutrophils # Seg Neutrophils # Man Lymphocytes # (Manual) Monocytes # (Manual) Eosinophils # (Manual) Basophils # (Manual) PT INR Fibrinogen dRVVT Confirm Interp Factor V Activity POC ABG pH POC ABG pCO2 POC ABG pO2 ABG pO2 ABG HCO3 ABG Base Excess ABG Hemoglobin Oxyhemoglobin Sodium 133 L Potassium 3.5 L Chloride 96.1 L Carbon Dioxide 18 L BUN 76 H Creatinine 2.1 H Glucose POC Glucose 133 H 138 H Lactic Acid Calcium 8.3 L Phosphorus Magnesium Direct Bilirubin AST ALT Alkaline Phosphatase Lactate Dehydrogenase Troponin T C-Reactive Protein Total Protein Albumin Prealbumin Triglycerides Cholesterol LDL Cholesterol Direct HDL Cholesterol Urine pH Urine WBC (Auto) Urine Creatinine Urine Total Protein Fluid Total Protein Vancomycin Trough Rheumatoid Factor Complement C4 Miscellaneous Test Crossmatch 10/23/16 10/23/16 10/24/16 16:53 23:37 04:00 WBC RBC Hgb Hct MCV MCH MCHC RDW Plt Count Lymph % (Auto) [place] % (Auto) Lymph # [place] # Baso # Seg Neutrophils % Seg Neuts % (Manual) Lymphocytes % (Manual) Monocytes % (Manual) Eosinophils % (Manual) Basophils % (Manual) Nucleated RBC % Seg Neutrophils # Seg Neutrophils # Man Lymphocytes # (Manual) Monocytes # (Manual) Eosinophils # (Manual) Basophils # (Manual) PT INR Fibrinogen dRVVT Confirm Interp Factor V Activity POC ABG pH POC ABG pCO2 POC ABG pO2 ABG pO2 ABG HCO3 ABG Base Excess ABG Hemoglobin Oxyhemoglobin Sodium 131 L Potassium Chloride 94.5 L Carbon Dioxide 19 L BUN 97 H Creatinine 2.6 H Glucose 110 H POC Glucose 125 H 123 H Lactic Acid Calcium 8.3 L Phosphorus Magnesium Direct Bilirubin AST ALT Alkaline Phosphatase Lactate Dehydrogenase Troponin T C-Reactive Protein Total Protein Albumin Prealbumin Triglycerides Cholesterol LDL Cholesterol Direct HDL Cholesterol Urine pH Urine WBC (Auto) Urine Creatinine Urine Total Protein Fluid Total Protein Vancomycin Trough Rheumatoid Factor Complement C4 Miscellaneous Test Crossmatch 10/24/16 10/24/16 10/24/16 07:49 11:39 17:52 WBC RBC Hgb 6.0 L Hct 19.7 L* MCV MCH MCHC RDW Plt Count Lymph % (Auto) [place] % (Auto) Lymph # [place] # Baso # Seg Neutrophils % Seg Neuts % (Manual) Lymphocytes % (Manual) Monocytes % (Manual) Eosinophils % (Manual) Basophils % (Manual) Nucleated RBC % Seg Neutrophils # Seg Neutrophils # Man Lymphocytes # (Manual) Monocytes # (Manual) Eosinophils # (Manual) Basophils # (Manual) PT INR Fibrinogen dRVVT Confirm Interp Factor V Activity POC ABG pH POC ABG pCO2 POC ABG pO2 ABG pO2 ABG HCO3 ABG Base Excess ABG Hemoglobin Oxyhemoglobin Sodium Potassium Chloride Carbon Dioxide BUN Creatinine Glucose POC Glucose 106 H 158 H Lactic Acid Calcium Phosphorus Magnesium Direct Bilirubin AST ALT Alkaline Phosphatase Lactate Dehydrogenase Troponin T C-Reactive Protein Total Protein Albumin Prealbumin Triglycerides Cholesterol LDL Cholesterol Direct HDL Cholesterol Urine pH Urine WBC (Auto) Urine Creatinine Urine Total Protein Fluid Total Protein Vancomycin Trough Rheumatoid Factor Complement C4 Miscellaneous Test Crossmatch 10/24/16 10/24/16 10/24/16 20:00 22:27 Unknown WBC RBC Hgb 9.4 L D Hct 27.5 L D MCV MCH MCHC RDW Plt Count Lymph % (Auto) [place] % (Auto) Lymph # [place] # Baso # Seg Neutrophils % Seg Neuts % (Manual) Lymphocytes % (Manual) Monocytes % (Manual) Eosinophils % (Manual) Basophils % (Manual) Nucleated RBC % Seg Neutrophils # Seg Neutrophils # Man Lymphocytes # (Manual) Monocytes # (Manual) Eosinophils # (Manual) Basophils # (Manual) PT INR Fibrinogen dRVVT Confirm Interp Factor V Activity POC ABG pH POC ABG pCO2 POC ABG pO2 ABG pO2 ABG HCO3 ABG Base Excess ABG Hemoglobin Oxyhemoglobin Sodium Potassium Chloride Carbon Dioxide BUN Creatinine Glucose POC Glucose 125 H Lactic Acid Calcium Phosphorus Magnesium Direct Bilirubin AST ALT Alkaline Phosphatase Lactate Dehydrogenase Troponin T C-Reactive Protein Total Protein Albumin Prealbumin Triglycerides Cholesterol LDL Cholesterol Direct HDL Cholesterol Urine pH Urine WBC (Auto) Urine Creatinine Urine Total Protein Fluid Total Protein Vancomycin Trough Rheumatoid Factor Complement C4 Miscellaneous Test Crossmatch See Detail 10/25/16 10/25/16 10/25/16 04:00 04:00 04:00 WBC 14.2 H RBC 2.98 L Hgb 9.0 L Hct 26.2 L MCV MCH MCHC RDW 16.6 H Plt Count Lymph % (Auto) [place] % (Auto) 10.7 H Lymph # [place] # 1.5 H Baso # Seg Neutrophils % 73.6 H Seg Neuts % (Manual) Lymphocytes % (Manual) Monocytes % (Manual) Eosinophils % (Manual) Basophils % (Manual) Nucleated RBC % Seg Neutrophils # 10.5 H Seg Neutrophils # Man Lymphocytes # (Manual) Monocytes # (Manual) Eosinophils # (Manual) Basophils # (Manual) PT INR Fibrinogen dRVVT Confirm Interp Factor V Activity POC ABG pH POC ABG pCO2 POC ABG pO2 ABG pO2 ABG HCO3 ABG Base Excess ABG Hemoglobin Oxyhemoglobin Sodium 132 L Potassium Chloride 94.7 L Carbon Dioxide BUN 51 H Creatinine 1.6 H Glucose 130 H POC Glucose Lactic Acid Calcium 8.3 L Phosphorus 1.60 L D Magnesium Direct Bilirubin AST ALT Alkaline Phosphatase Lactate Dehydrogenase Troponin T C-Reactive Protein Total Protein Albumin Prealbumin Triglycerides Cholesterol LDL Cholesterol Direct HDL Cholesterol Urine pH Urine WBC (Auto) Urine Creatinine Urine Total Protein Fluid Total Protein Vancomycin Trough Rheumatoid Factor Complement C4 Miscellaneous Test Crossmatch 10/25/16 10/25/16 10/25/16 04:32 11:48 17:22 WBC RBC Hgb Hct MCV MCH MCHC RDW Plt Count Lymph % (Auto) [place] % (Auto) Lymph # [place] # Baso # Seg Neutrophils % Seg Neuts % (Manual) Lymphocytes % (Manual) Monocytes % (Manual) Eosinophils % (Manual) Basophils % (Manual) Nucleated RBC % Seg Neutrophils # Seg Neutrophils # Man Lymphocytes # (Manual) Monocytes # (Manual) Eosinophils # (Manual) Basophils # (Manual) PT INR Fibrinogen dRVVT Confirm Interp Factor V Activity POC ABG pH POC ABG pCO2 POC ABG pO2 ABG pO2 ABG HCO3 ABG Base Excess ABG Hemoglobin Oxyhemoglobin Sodium Potassium Chloride Carbon Dioxide BUN Creatinine Glucose POC Glucose 124 H 171 H 120 H Lactic Acid Calcium Phosphorus Magnesium Direct Bilirubin AST ALT Alkaline Phosphatase Lactate Dehydrogenase Troponin T C-Reactive Protein Total Protein Albumin Prealbumin Triglycerides Cholesterol LDL Cholesterol Direct HDL Cholesterol Urine pH Urine WBC (Auto) Urine Creatinine Urine Total Protein Fluid Total Protein Vancomycin Trough Rheumatoid Factor Complement C4 Miscellaneous Test Crossmatch 10/26/16 10/26/16 10/26/16 04:54 07:06 07:06 WBC 16.9 H RBC 3.06 L Hgb 9.1 L Hct 26.9 L MCV MCH MCHC RDW 16.9 H Plt Count Lymph % (Auto) [place] % (Auto) Lymph # [place] # Baso # Seg Neutrophils % Seg Neuts % (Manual) 71.0 H Lymphocytes % (Manual) 5.0 L Monocytes % (Manual) 12.0 H Eosinophils % (Manual) Basophils % (Manual) Nucleated RBC % Seg Neutrophils # Seg Neutrophils # Man 12.0 H Lymphocytes # (Manual) 0.8 L Monocytes # (Manual) 2.0 H Eosinophils # (Manual) Basophils # (Manual) PT INR Fibrinogen dRVVT Confirm Interp Factor V Activity POC ABG pH POC ABG pCO2 POC ABG pO2 ABG pO2 ABG HCO3 ABG Base Excess ABG Hemoglobin Oxyhemoglobin Sodium 135 L Potassium Chloride 97.1 L Carbon Dioxide BUN 73 H Creatinine 2.2 H Glucose 117 H POC Glucose 123 H Lactic Acid Calcium Phosphorus 1.70 L Magnesium Direct Bilirubin AST ALT Alkaline Phosphatase Lactate Dehydrogenase Troponin T C-Reactive Protein Total Protein Albumin Prealbumin Triglycerides Cholesterol LDL Cholesterol Direct HDL Cholesterol Urine pH Urine WBC (Auto) Urine Creatinine Urine Total Protein Fluid Total Protein Vancomycin Trough Rheumatoid Factor Complement C4 Miscellaneous Test Crossmatch 10/26/16 10/26/16 10/26/16 12:12 17:29 23:42 WBC RBC Hgb Hct MCV MCH MCHC RDW Plt Count Lymph % (Auto) [place] % (Auto) Lymph # [place] # Baso # Seg Neutrophils % Seg Neuts % (Manual) Lymphocytes % (Manual) Monocytes % (Manual) Eosinophils % (Manual) Basophils % (Manual) Nucleated RBC % Seg Neutrophils # Seg Neutrophils # Man Lymphocytes # (Manual) Monocytes # (Manual) Eosinophils # (Manual) Basophils # (Manual) PT INR Fibrinogen dRVVT Confirm Interp Factor V Activity POC ABG pH POC ABG pCO2 POC ABG pO2 ABG pO2 ABG HCO3 ABG Base Excess ABG Hemoglobin Oxyhemoglobin Sodium Potassium Chloride Carbon Dioxide BUN Creatinine Glucose POC Glucose 126 H 161 H 118 H Lactic Acid Calcium Phosphorus Magnesium Direct Bilirubin AST ALT Alkaline Phosphatase Lactate Dehydrogenase Troponin T C-Reactive Protein Total Protein Albumin Prealbumin Triglycerides Cholesterol LDL Cholesterol Direct HDL Cholesterol Urine pH Urine WBC (Auto) Urine Creatinine Urine Total Protein Fluid Total Protein Vancomycin Trough Rheumatoid Factor Complement C4 Miscellaneous Test Crossmatch 10/27/16 10/27/16 10/27/16 05:03 06:30 06:30 WBC 13.9 H RBC 3.09 L Hgb 9.2 L Hct 27.5 L MCV MCH MCHC RDW 17.0 H Plt Count Lymph % (Auto) [place] % (Auto) Lymph # [place] # Baso # Seg Neutrophils % Seg Neuts % (Manual) 78.0 H Lymphocytes % (Manual) Monocytes % (Manual) Eosinophils % (Manual) Basophils % (Manual) Nucleated RBC % 2.0 H Seg Neutrophils # Seg Neutrophils # Man 10.8 H Lymphocytes # (Manual) Monocytes # (Manual) 1.0 H Eosinophils # (Manual) Basophils # (Manual) PT INR Fibrinogen dRVVT Confirm Interp Factor V Activity POC ABG pH POC ABG pCO2 POC ABG pO2 ABG pO2 ABG HCO3 ABG Base Excess ABG Hemoglobin Oxyhemoglobin Sodium Potassium Chloride Carbon Dioxide BUN 40 H Creatinine 1.5 H Glucose 135 H POC Glucose 107 H Lactic Acid Calcium 8.3 L Phosphorus 1.30 L D Magnesium Direct Bilirubin AST ALT Alkaline Phosphatase Lactate Dehydrogenase Troponin T C-Reactive Protein Total Protein Albumin Prealbumin Triglycerides Cholesterol LDL Cholesterol Direct HDL Cholesterol Urine pH Urine WBC (Auto) Urine Creatinine Urine Total Protein Fluid Total Protein Vancomycin Trough Rheumatoid Factor Complement C4 Miscellaneous Test Crossmatch 10/27/16 10/27/16 10/27/16 13:27 18:07 23:40 WBC RBC Hgb Hct MCV MCH MCHC RDW Plt Count Lymph % (Auto) [place] % (Auto) Lymph # [place] # Baso # Seg Neutrophils % Seg Neuts % (Manual) Lymphocytes % (Manual) Monocytes % (Manual) Eosinophils % (Manual) Basophils % (Manual) Nucleated RBC % Seg Neutrophils # Seg Neutrophils # Man Lymphocytes # (Manual) Monocytes # (Manual) Eosinophils # (Manual) Basophils # (Manual) PT INR Fibrinogen dRVVT Confirm Interp Factor V Activity POC ABG pH POC ABG pCO2 POC ABG pO2 ABG pO2 ABG HCO3 ABG Base Excess ABG Hemoglobin Oxyhemoglobin Sodium Potassium Chloride Carbon Dioxide BUN Creatinine Glucose POC Glucose 117 H 121 H 118 H Lactic Acid Calcium Phosphorus Magnesium Direct Bilirubin AST ALT Alkaline Phosphatase Lactate Dehydrogenase Troponin T C-Reactive Protein Total Protein Albumin Prealbumin Triglycerides Cholesterol LDL Cholesterol Direct HDL Cholesterol Urine pH Urine WBC (Auto) Urine Creatinine Urine Total Protein Fluid Total Protein Vancomycin Trough Rheumatoid Factor Complement C4 Miscellaneous Test Crossmatch 10/28/16 10/28/16 10/28/16 05:48 06:45 06:45 WBC 14.7 H RBC 3.05 L Hgb 9.0 L Hct 26.9 L MCV MCH MCHC RDW 16.8 H Plt Count Lymph % (Auto) 8.2 L [place] % (Auto) 8.4 H Lymph # [place] # 1.2 H Baso # Seg Neutrophils % 81.9 H Seg Neuts % (Manual) Lymphocytes % (Manual) Monocytes % (Manual) Eosinophils % (Manual) Basophils % (Manual) Nucleated RBC % Seg Neutrophils # 12.1 H Seg Neutrophils # Man Lymphocytes # (Manual) Monocytes # (Manual) Eosinophils # (Manual) Basophils # (Manual) PT INR Fibrinogen dRVVT Confirm Interp Factor V Activity POC ABG pH POC ABG pCO2 POC ABG pO2 ABG pO2 ABG HCO3 ABG Base Excess ABG Hemoglobin Oxyhemoglobin Sodium Potassium Chloride Carbon Dioxide BUN 60 H Creatinine 1.9 H Glucose 120 H POC Glucose 114 H Lactic Acid Calcium Phosphorus Magnesium Direct Bilirubin AST ALT Alkaline Phosphatase Lactate Dehydrogenase Troponin T C-Reactive Protein Total Protein Albumin Prealbumin Triglycerides Cholesterol LDL Cholesterol Direct HDL Cholesterol Urine pH Urine WBC (Auto) Urine Creatinine Urine Total Protein Fluid Total Protein Vancomycin Trough Rheumatoid Factor Complement C4 Miscellaneous Test Crossmatch 10/28/16 10/28/16 10/29/16 17:08 23:50 05:10 WBC RBC Hgb Hct MCV MCH MCHC RDW Plt Count Lymph % (Auto) [place] % (Auto) Lymph # [place] # Baso # Seg Neutrophils % Seg Neuts % (Manual) Lymphocytes % (Manual) Monocytes % (Manual) Eosinophils % (Manual) Basophils % (Manual) Nucleated RBC % Seg Neutrophils # Seg Neutrophils # Man Lymphocytes # (Manual) Monocytes # (Manual) Eosinophils # (Manual) Basophils # (Manual) PT INR Fibrinogen dRVVT Confirm Interp Factor V Activity POC ABG pH POC ABG pCO2 POC ABG pO2 ABG pO2 ABG HCO3 ABG Base Excess ABG Hemoglobin Oxyhemoglobin Sodium Potassium Chloride Carbon Dioxide BUN Creatinine Glucose POC Glucose 109 H 110 H 124 H Lactic Acid Calcium Phosphorus Magnesium Direct Bilirubin AST ALT Alkaline Phosphatase Lactate Dehydrogenase Troponin T C-Reactive Protein Total Protein Albumin Prealbumin Triglycerides Cholesterol LDL Cholesterol Direct HDL Cholesterol Urine pH Urine WBC (Auto) Urine Creatinine Urine Total Protein Fluid Total Protein Vancomycin Trough Rheumatoid Factor Complement C4 Miscellaneous Test Crossmatch 10/29/16 10/29/16 10/29/16 07:45 07:45 12:19 WBC 14.7 H RBC 3.15 L Hgb 9.3 L Hct 28.9 L MCV MCH MCHC RDW 17.0 H Plt Count Lymph % (Auto) 11.9 L [place] % (Auto) 8.6 H Lymph # [place] # 1.3 H Baso # Seg Neutrophils % 78.1 H Seg Neuts % (Manual) Lymphocytes % (Manual) Monocytes % (Manual) Eosinophils % (Manual) Basophils % (Manual) Nucleated RBC % Seg Neutrophils # 11.4 H Seg Neutrophils # Man Lymphocytes # (Manual) Monocytes # (Manual) Eosinophils # (Manual) Basophils # (Manual) PT INR Fibrinogen dRVVT Confirm Interp Factor V Activity POC ABG pH POC ABG pCO2 POC ABG pO2 ABG pO2 ABG HCO3 ABG Base Excess ABG Hemoglobin Oxyhemoglobin Sodium Potassium 5.1 H Chloride Carbon Dioxide 19 L BUN 78 H Creatinine 2.2 H Glucose 116 H POC Glucose 118 H Lactic Acid Calcium Phosphorus Magnesium Direct Bilirubin AST ALT Alkaline Phosphatase Lactate Dehydrogenase Troponin T C-Reactive Protein Total Protein Albumin Prealbumin Triglycerides Cholesterol LDL Cholesterol Direct HDL Cholesterol Urine pH Urine WBC (Auto) Urine Creatinine Urine Total Protein Fluid Total Protein Vancomycin Trough Rheumatoid Factor Complement C4 Miscellaneous Test Crossmatch 10/29/16 10/30/16 10/30/16 17:49 01:52 03:28 WBC RBC Hgb Hct MCV MCH MCHC RDW Plt Count Lymph % (Auto) [place] % (Auto) Lymph # [place] # Baso # Seg Neutrophils % Seg Neuts % (Manual) Lymphocytes % (Manual) Monocytes % (Manual) Eosinophils % (Manual) Basophils % (Manual) Nucleated RBC % Seg Neutrophils # Seg Neutrophils # Man Lymphocytes # (Manual) Monocytes # (Manual) Eosinophils # (Manual) Basophils # (Manual) PT INR Fibrinogen dRVVT Confirm Interp Factor V Activity POC ABG pH POC ABG pCO2 POC ABG pO2 ABG pO2 ABG HCO3 ABG Base Excess ABG Hemoglobin Oxyhemoglobin Sodium Potassium 5.4 H Chloride 97.5 L Carbon Dioxide 19 L BUN 90 H Creatinine 2.5 H Glucose POC Glucose 120 H 129 H Lactic Acid Calcium Phosphorus 5.20 H Magnesium Direct Bilirubin AST ALT Alkaline Phosphatase Lactate Dehydrogenase Troponin T C-Reactive Protein Total Protein Albumin Prealbumin Triglycerides Cholesterol LDL Cholesterol Direct HDL Cholesterol Urine pH Urine WBC (Auto) Urine Creatinine Urine Total Protein Fluid Total Protein Vancomycin Trough Rheumatoid Factor Complement C4 Miscellaneous Test Crossmatch 10/30/16 10/30/16 10/30/16 03:28 08:19 08:19 WBC 11.6 H 15.9 H RBC 2.75 L 2.82 L Hgb 7.9 L 8.3 L Hct 24.2 L 25.2 L MCV MCH MCHC RDW 16.7 H 17.2 H Plt Count Lymph % (Auto) [place] % (Auto) 9.8 H Lymph # [place] # 1.1 H Baso # Seg Neutrophils % 74.2 H Seg Neuts % (Manual) Lymphocytes % (Manual) Monocytes % (Manual) Eosinophils % (Manual) Basophils % (Manual) Nucleated RBC % Seg Neutrophils # 8.6 H Seg Neutrophils # Man Lymphocytes # (Manual) Monocytes # (Manual) Eosinophils # (Manual) Basophils # (Manual) PT INR Fibrinogen dRVVT Confirm Interp Factor V Activity POC ABG pH POC ABG pCO2 POC ABG pO2 ABG pO2 ABG HCO3 ABG Base Excess ABG Hemoglobin Oxyhemoglobin Sodium Potassium 5.3 H Chloride 97.4 L Carbon Dioxide 19 L BUN 93 H Creatinine 2.6 H Glucose POC Glucose Lactic Acid Calcium Phosphorus Magnesium Direct Bilirubin AST ALT Alkaline Phosphatase Lactate Dehydrogenase Troponin T C-Reactive Protein Total Protein Albumin Prealbumin Triglycerides Cholesterol LDL Cholesterol Direct HDL Cholesterol Urine pH Urine WBC (Auto) Urine Creatinine Urine Total Protein Fluid Total Protein Vancomycin Trough Rheumatoid Factor Complement C4 Miscellaneous Test Crossmatch 10/30/16 10/30/16 10/31/16 17:11 23:56 00:40 WBC RBC Hgb Hct MCV MCH MCHC RDW Plt Count Lymph % (Auto) [place] % (Auto) Lymph # [place] # Baso # Seg Neutrophils % Seg Neuts % (Manual) Lymphocytes % (Manual) Monocytes % (Manual) Eosinophils % (Manual) Basophils % (Manual) Nucleated RBC % Seg Neutrophils # Seg Neutrophils # Man Lymphocytes # (Manual) Monocytes # (Manual) Eosinophils # (Manual) Basophils # (Manual) PT INR Fibrinogen dRVVT Confirm Interp Factor V Activity POC ABG pH POC ABG pCO2 POC ABG pO2 ABG pO2 ABG HCO3 ABG Base Excess ABG Hemoglobin Oxyhemoglobin Sodium Potassium Chloride Carbon Dioxide BUN Creatinine Glucose POC Glucose 106 H 117 H 120 H Lactic Acid Calcium Phosphorus Magnesium Direct Bilirubin AST ALT Alkaline Phosphatase Lactate Dehydrogenase Troponin T C-Reactive Protein Total Protein Albumin Prealbumin Triglycerides Cholesterol LDL Cholesterol Direct HDL Cholesterol Urine pH Urine WBC (Auto) Urine Creatinine Urine Total Protein Fluid Total Protein Vancomycin Trough Rheumatoid Factor Complement C4 Miscellaneous Test Crossmatch 0910/31/16 10/31/16 05:43 07:15 07:15 WBC 12.1 H RBC 2.63 L Hgb 7.7 L Hct 23.3 L MCV MCH MCHC RDW 16.7 H Plt Count Lymph % (Auto) 11.7 L [place] % (Auto) 7.7 H Lymph # [place] # 0.9 H Baso # Seg Neutrophils % 78.0 H Seg Neuts % (Manual) Lymphocytes % (Manual) Monocytes % (Manual) Eosinophils % (Manual) Basophils % (Manual) Nucleated RBC % Seg Neutrophils # 9.4 H Seg Neutrophils # Man Lymphocytes # (Manual) Monocytes # (Manual) Eosinophils # (Manual) Basophils # (Manual) PT INR Fibrinogen dRVVT Confirm Interp Factor V Activity POC ABG pH POC ABG pCO2 POC ABG pO2 ABG pO2 ABG HCO3 ABG Base Excess ABG Hemoglobin Oxyhemoglobin Sodium Potassium Chloride 96.4 L Carbon Dioxide 21 L BUN 99 H Creatinine 2.6 H Glucose 144 H POC Glucose 125 H Lactic Acid Calcium Phosphorus 4.80 H Magnesium Direct Bilirubin AST ALT Alkaline Phosphatase Lactate Dehydrogenase Troponin T C-Reactive Protein Total Protein Albumin Prealbumin Triglycerides Cholesterol LDL Cholesterol Direct HDL Cholesterol Urine pH Urine WBC (Auto) Urine Creatinine Urine Total Protein Fluid Total Protein Vancomycin Trough Rheumatoid Factor Complement C4 Miscellaneous Test Crossmatch 10/31/16 10/31/16 11/01/16 11:46 18:34 00:20 WBC RBC Hgb Hct MCV MCH MCHC RDW Plt Count Lymph % (Auto) [place] % (Auto) Lymph # [place] # Baso # Seg Neutrophils % Seg Neuts % (Manual) Lymphocytes % (Manual) Monocytes % (Manual) Eosinophils % (Manual) Basophils % (Manual) Nucleated RBC % Seg Neutrophils # Seg Neutrophils # Man Lymphocytes # (Manual) Monocytes # (Manual) Eosinophils # (Manual) Basophils # (Manual) PT INR Fibrinogen dRVVT Confirm Interp Factor V Activity POC ABG pH POC ABG pCO2 POC ABG pO2 ABG pO2 ABG HCO3 ABG Base Excess ABG Hemoglobin Oxyhemoglobin Sodium Potassium Chloride Carbon Dioxide BUN Creatinine Glucose POC Glucose 159 H 140 H 132 H Lactic Acid Calcium Phosphorus Magnesium Direct Bilirubin AST ALT Alkaline Phosphatase Lactate Dehydrogenase Troponin T C-Reactive Protein Total Protein Albumin Prealbumin Triglycerides Cholesterol LDL Cholesterol Direct HDL Cholesterol Urine pH Urine WBC (Auto) Urine Creatinine Urine Total Protein Fluid Total Protein Vancomycin Trough Rheumatoid Factor Complement C4 Miscellaneous Test Crossmatch 11/01/16 11/01/16 11/01/16 04:55 04:55 06:11 WBC 11.2 H RBC 2.68 L Hgb 7.5 L Hct 23.7 L MCV MCH MCHC RDW 16.1 H Plt Count Lymph % (Auto) [place] % (Auto) 9.8 H Lymph # [place] # 1.1 H Baso # Seg Neutrophils % 70.8 H Seg Neuts % (Manual) Lymphocytes % (Manual) Monocytes % (Manual) Eosinophils % (Manual) Basophils % (Manual) Nucleated RBC % Seg Neutrophils # 7.9 H Seg Neutrophils # Man Lymphocytes # (Manual) Monocytes # (Manual) Eosinophils # (Manual) Basophils # (Manual) PT INR Fibrinogen dRVVT Confirm Interp Factor V Activity POC ABG pH POC ABG pCO2 POC ABG pO2 ABG pO2 ABG HCO3 ABG Base Excess ABG Hemoglobin Oxyhemoglobin Sodium Potassium 3.3 L D Chloride Carbon Dioxide BUN 61 H Creatinine 1.9 H Glucose 114 H POC Glucose 115 H Lactic Acid Calcium Phosphorus 1.80 L D Magnesium Direct Bilirubin AST ALT Alkaline Phosphatase Lactate Dehydrogenase Troponin T C-Reactive Protein Total Protein Albumin Prealbumin Triglycerides Cholesterol LDL Cholesterol Direct HDL Cholesterol Urine pH Urine WBC (Auto) Urine Creatinine Urine Total Protein Fluid Total Protein Vancomycin Trough Rheumatoid Factor Complement C4 Miscellaneous Test Crossmatch 11/01/16 11/01/16 11/01/16 12:29 18:23 23:58 WBC RBC Hgb Hct MCV MCH MCHC RDW Plt Count Lymph % (Auto) [place] % (Auto) Lymph # [place] # Baso # Seg Neutrophils % Seg Neuts % (Manual) Lymphocytes % (Manual) Monocytes % (Manual) Eosinophils % (Manual) Basophils % (Manual) Nucleated RBC % Seg Neutrophils # Seg Neutrophils # Man Lymphocytes # (Manual) Monocytes # (Manual) Eosinophils # (Manual) Basophils # (Manual) PT INR Fibrinogen dRVVT Confirm Interp Factor V Activity POC ABG pH POC ABG pCO2 POC ABG pO2 ABG pO2 ABG HCO3 ABG Base Excess ABG Hemoglobin Oxyhemoglobin Sodium Potassium Chloride Carbon Dioxide BUN Creatinine Glucose POC Glucose 142 H 143 H 128 H Lactic Acid Calcium Phosphorus Magnesium Direct Bilirubin AST ALT Alkaline Phosphatase Lactate Dehydrogenase Troponin T C-Reactive Protein Total Protein Albumin Prealbumin Triglycerides Cholesterol LDL Cholesterol Direct HDL Cholesterol Urine pH Urine WBC (Auto) Urine Creatinine Urine Total Protein Fluid Total Protein Vancomycin Trough Rheumatoid Factor Complement C4 Miscellaneous Test Crossmatch 11/02/16 11/02/16 11/02/16 04:16 05:29 11:58 WBC RBC Hgb Hct MCV MCH MCHC RDW Plt Count Lymph % (Auto) [place] % (Auto) Lymph # [place] # Baso # Seg Neutrophils % Seg Neuts % (Manual) Lymphocytes % (Manual) Monocytes % (Manual) Eosinophils % (Manual) Basophils % (Manual) Nucleated RBC % Seg Neutrophils # Seg Neutrophils # Man Lymphocytes # (Manual) Monocytes # (Manual) Eosinophils # (Manual) Basophils # (Manual) PT INR Fibrinogen dRVVT Confirm Interp Factor V Activity POC ABG pH POC ABG pCO2 POC ABG pO2 ABG pO2 ABG HCO3 ABG Base Excess ABG Hemoglobin Oxyhemoglobin Sodium Potassium 3.1 L Chloride Carbon Dioxide BUN 73 H Creatinine 2.3 H Glucose 112 H POC Glucose 135 H 149 H Lactic Acid Calcium Phosphorus Magnesium Direct Bilirubin AST ALT Alkaline Phosphatase Lactate Dehydrogenase Troponin T C-Reactive Protein Total Protein Albumin Prealbumin Triglycerides Cholesterol LDL Cholesterol Direct HDL Cholesterol Urine pH Urine WBC (Auto) Urine Creatinine Urine Total Protein Fluid Total Protein Vancomycin Trough Rheumatoid Factor Complement C4 Miscellaneous Test Crossmatch 11/02/16 11/02/16 11/03/16 17:42 22:54 06:00 WBC RBC Hgb Hct MCV MCH MCHC RDW Plt Count Lymph % (Auto) [place] % (Auto) Lymph # [place] # Baso # Seg Neutrophils % Seg Neuts % (Manual) Lymphocytes % (Manual) Monocytes % (Manual) Eosinophils % (Manual) Basophils % (Manual) Nucleated RBC % Seg Neutrophils # Seg Neutrophils # Man Lymphocytes # (Manual) Monocytes # (Manual) Eosinophils # (Manual) Basophils # (Manual) PT INR Fibrinogen dRVVT Confirm Interp Factor V Activity POC ABG pH POC ABG pCO2 POC ABG pO2 ABG pO2 ABG HCO3 ABG Base Excess ABG Hemoglobin Oxyhemoglobin Sodium Potassium Chloride 96.7 L Carbon Dioxide BUN 41 H Creatinine 1.5 H Glucose 145 H POC Glucose 182 H 115 H Lactic Acid Calcium Phosphorus 1.60 L D Magnesium 1.50 L Direct Bilirubin AST ALT Alkaline Phosphatase Lactate Dehydrogenase Troponin T C-Reactive Protein Total Protein Albumin Prealbumin Triglycerides Cholesterol LDL Cholesterol Direct HDL Cholesterol Urine pH Urine WBC (Auto) Urine Creatinine Urine Total Protein Fluid Total Protein Vancomycin Trough Rheumatoid Factor Complement C4 Miscellaneous Test Crossmatch 11/03/16 11/03/16 11/03/16 11:53 17:45 23:37 WBC RBC Hgb Hct MCV MCH MCHC RDW Plt Count Lymph % (Auto) [place] % (Auto) Lymph # [place] # Baso # Seg Neutrophils % Seg Neuts % (Manual) Lymphocytes % (Manual) Monocytes % (Manual) Eosinophils % (Manual) Basophils % (Manual) Nucleated RBC % Seg Neutrophils # Seg Neutrophils # Man Lymphocytes # (Manual) Monocytes # (Manual) Eosinophils # (Manual) Basophils # (Manual) PT INR Fibrinogen dRVVT Confirm Interp Factor V Activity POC ABG pH POC ABG pCO2 POC ABG pO2 ABG pO2 ABG HCO3 ABG Base Excess ABG Hemoglobin Oxyhemoglobin Sodium Potassium Chloride Carbon Dioxide BUN Creatinine Glucose POC Glucose 131 H 134 H 113 H Lactic Acid Calcium Phosphorus Magnesium Direct Bilirubin AST ALT Alkaline Phosphatase Lactate Dehydrogenase Troponin T C-Reactive Protein Total Protein Albumin Prealbumin Triglycerides Cholesterol LDL Cholesterol Direct HDL Cholesterol Urine pH Urine WBC (Auto) Urine Creatinine Urine Total Protein Fluid Total Protein Vancomycin Trough Rheumatoid Factor Complement C4 Miscellaneous Test Crossmatch 11/04/16 11/04/16 11/04/16 05:41 06:00 12:10 WBC RBC Hgb Hct MCV MCH MCHC RDW Plt Count Lymph % (Auto) [place] % (Auto) Lymph # [place] # Baso # Seg Neutrophils % Seg Neuts % (Manual) Lymphocytes % (Manual) Monocytes % (Manual) Eosinophils % (Manual) Basophils % (Manual) Nucleated RBC % Seg Neutrophils # Seg Neutrophils # Man Lymphocytes # (Manual) Monocytes # (Manual) Eosinophils # (Manual) Basophils # (Manual) PT INR Fibrinogen dRVVT Confirm Interp Factor V Activity POC ABG pH POC ABG pCO2 POC ABG pO2 ABG pO2 ABG HCO3 ABG Base Excess ABG Hemoglobin Oxyhemoglobin Sodium Potassium Chloride 96.7 L Carbon Dioxide BUN 52 H Creatinine 1.9 H Glucose 126 H POC Glucose 137 H 191 H Lactic Acid Calcium Phosphorus Magnesium Direct Bilirubin AST ALT Alkaline Phosphatase Lactate Dehydrogenase Troponin T C-Reactive Protein Total Protein Albumin Prealbumin Triglycerides Cholesterol LDL Cholesterol Direct HDL Cholesterol Urine pH Urine WBC (Auto) Urine Creatinine Urine Total Protein Fluid Total Protein Vancomycin Trough Rheumatoid Factor Complement C4 Miscellaneous Test Crossmatch 11/04/16 11/05/16 11/05/16 22:57 03:10 05:10 WBC RBC Hgb Hct MCV MCH MCHC RDW Plt Count Lymph % (Auto) [place] % (Auto) Lymph # [place] # Baso # Seg Neutrophils % Seg Neuts % (Manual) Lymphocytes % (Manual) Monocytes % (Manual) Eosinophils % (Manual) Basophils % (Manual) Nucleated RBC % Seg Neutrophils # Seg Neutrophils # Man Lymphocytes # (Manual) Monocytes # (Manual) Eosinophils # (Manual) Basophils # (Manual) PT INR Fibrinogen dRVVT Confirm Interp Factor V Activity POC ABG pH POC ABG pCO2 POC ABG pO2 ABG pO2 ABG HCO3 ABG Base Excess ABG Hemoglobin Oxyhemoglobin Sodium 136 L Potassium Chloride 97.2 L Carbon Dioxide BUN 32 H Creatinine 1.3 H Glucose 123 H POC Glucose 125 H 108 H Lactic Acid Calcium 7.8 L Phosphorus Magnesium Direct Bilirubin AST ALT Alkaline Phosphatase Lactate Dehydrogenase Troponin T C-Reactive Protein Total Protein Albumin Prealbumin Triglycerides Cholesterol LDL Cholesterol Direct HDL Cholesterol Urine pH Urine WBC (Auto) Urine Creatinine Urine Total Protein Fluid Total Protein Vancomycin Trough Rheumatoid Factor Complement C4 Miscellaneous Test Crossmatch 11/05/16 11/05/16 11/05/16 12:23 13:09 13:25 WBC RBC Hgb Hct MCV MCH MCHC RDW Plt Count Lymph % (Auto) [place] % (Auto) Lymph # [place] # Baso # Seg Neutrophils % Seg Neuts % (Manual) Lymphocytes % (Manual) Monocytes % (Manual) Eosinophils % (Manual) Basophils % (Manual) Nucleated RBC % Seg Neutrophils # Seg Neutrophils # Man Lymphocytes # (Manual) Monocytes # (Manual) Eosinophils # (Manual) Basophils # (Manual) PT INR Fibrinogen dRVVT Confirm Interp Factor V Activity POC ABG pH POC ABG pCO2 POC ABG pO2 ABG pO2 ABG HCO3 ABG Base Excess ABG Hemoglobin Oxyhemoglobin Sodium Potassium Chloride Carbon Dioxide BUN Creatinine Glucose POC Glucose 124 H Lactic Acid Calcium Phosphorus Magnesium Direct Bilirubin AST ALT Alkaline Phosphatase Lactate Dehydrogenase Troponin T C-Reactive Protein 11.40 H Total Protein Albumin Prealbumin Triglycerides Cholesterol LDL Cholesterol Direct HDL Cholesterol Urine pH 9.0 H Urine WBC (Auto) Urine Creatinine Urine Total Protein Fluid Total Protein Vancomycin Trough Rheumatoid Factor Complement C4 Miscellaneous Test Crossmatch 11/05/16 11/05/16 11/05/16 13:25 17:54 23:42 WBC RBC Hgb Hct MCV MCH MCHC RDW Plt Count Lymph % (Auto) [place] % (Auto) Lymph # [place] # Baso # Seg Neutrophils % Seg Neuts % (Manual) Lymphocytes % (Manual) Monocytes % (Manual) Eosinophils % (Manual) Basophils % (Manual) Nucleated RBC % Seg Neutrophils # Seg Neutrophils # Man Lymphocytes # (Manual) Monocytes # (Manual) Eosinophils # (Manual) Basophils # (Manual) PT INR Fibrinogen dRVVT Confirm Interp Factor V Activity POC ABG pH POC ABG pCO2 POC ABG pO2 ABG pO2 ABG HCO3 ABG Base Excess ABG Hemoglobin Oxyhemoglobin Sodium Potassium Chloride Carbon Dioxide BUN Creatinine Glucose POC Glucose 114 H 134 H Lactic Acid Calcium Phosphorus Magnesium Direct Bilirubin AST ALT Alkaline Phosphatase Lactate Dehydrogenase Troponin T C-Reactive Protein Total Protein Albumin Prealbumin Triglycerides Cholesterol LDL Cholesterol Direct HDL Cholesterol Urine pH Urine WBC (Auto) Urine Creatinine Urine Total Protein Fluid Total Protein Vancomycin Trough Rheumatoid Factor Complement C4 Miscellaneous Test Flexitest 1 H Crossmatch 11/06/16 11/06/16 11/06/16 04:56 06:25 06:25 WBC RBC 2.50 L Hgb 7.3 L Hct 22.5 L MCV MCH MCHC RDW 16.9 H Plt Count Lymph % (Auto) [place] % (Auto) 10.5 H Lymph # [place] # 1.1 H Baso # Seg Neutrophils % Seg Neuts % (Manual) Lymphocytes % (Manual) Monocytes % (Manual) Eosinophils % (Manual) Basophils % (Manual) Nucleated RBC % Seg Neutrophils # Seg Neutrophils # Man Lymphocytes # (Manual) Monocytes # (Manual) Eosinophils # (Manual) Basophils # (Manual) PT INR Fibrinogen dRVVT Confirm Interp Factor V Activity POC ABG pH POC ABG pCO2 POC ABG pO2 ABG pO2 ABG HCO3 ABG Base Excess ABG Hemoglobin Oxyhemoglobin Sodium Potassium 5.1 H Chloride 95.9 L Carbon Dioxide BUN 52 H Creatinine 1.8 H Glucose 117 H POC Glucose 120 H Lactic Acid Calcium Phosphorus Magnesium Direct Bilirubin AST 103 H ALT 77 H Alkaline Phosphatase 285 H Lactate Dehydrogenase Troponin T C-Reactive Protein Total Protein 6.2 L Albumin 1.8 L Prealbumin 0.180 L Triglycerides Cholesterol LDL Cholesterol Direct HDL Cholesterol Urine pH Urine WBC (Auto) Urine Creatinine Urine Total Protein Fluid Total Protein Vancomycin Trough Rheumatoid Factor Complement C4 Miscellaneous Test Crossmatch 11/06/16 11/06/16 11/06/16 11:56 17:14 23:52 WBC RBC Hgb Hct MCV MCH MCHC RDW Plt Count Lymph % (Auto) [place] % (Auto) Lymph # [place] # Baso # Seg Neutrophils % Seg Neuts % (Manual) Lymphocytes % (Manual) Monocytes % (Manual) Eosinophils % (Manual) Basophils % (Manual) Nucleated RBC % Seg Neutrophils # Seg Neutrophils # Man Lymphocytes # (Manual) Monocytes # (Manual) Eosinophils # (Manual) Basophils # (Manual) PT INR Fibrinogen dRVVT Confirm Interp Factor V Activity POC ABG pH POC ABG pCO2 POC ABG pO2 ABG pO2 ABG HCO3 ABG Base Excess ABG Hemoglobin Oxyhemoglobin Sodium Potassium Chloride Carbon Dioxide BUN Creatinine Glucose POC Glucose 141 H 125 H 130 H Lactic Acid Calcium Phosphorus Magnesium Direct Bilirubin AST ALT Alkaline Phosphatase Lactate Dehydrogenase Troponin T C-Reactive Protein Total Protein Albumin Prealbumin Triglycerides Cholesterol LDL Cholesterol Direct HDL Cholesterol Urine pH Urine WBC (Auto) Urine Creatinine Urine Total Protein Fluid Total Protein Vancomycin Trough Rheumatoid Factor Complement C4 Miscellaneous Test Crossmatch 11/07/16 11/07/16 11/07/16 06:30 06:30 09:37 WBC RBC 2.18 L Hgb 6.3 L Hct 19.7 L* MCV MCH MCHC RDW 16.8 H Plt Count Lymph % (Auto) [place] % (Auto) 10.0 H Lymph # [place] # 1.0 H Baso # Seg Neutrophils % Seg Neuts % (Manual) Lymphocytes % (Manual) Monocytes % (Manual) Eosinophils % (Manual) Basophils % (Manual) Nucleated RBC % Seg Neutrophils # Seg Neutrophils # Man Lymphocytes # (Manual) Monocytes # (Manual) Eosinophils # (Manual) Basophils # (Manual) PT INR Fibrinogen dRVVT Confirm Interp Factor V Activity POC ABG pH POC ABG pCO2 POC ABG pO2 ABG pO2 ABG HCO3 ABG Base Excess ABG Hemoglobin Oxyhemoglobin Sodium 135 L Potassium Chloride 95.6 L Carbon Dioxide BUN 70 H Creatinine 2.0 H Glucose 126 H POC Glucose Lactic Acid Calcium Phosphorus Magnesium Direct Bilirubin AST ALT Alkaline Phosphatase Lactate Dehydrogenase Troponin T C-Reactive Protein Total Protein Albumin Prealbumin Triglycerides Cholesterol LDL Cholesterol Direct HDL Cholesterol Urine pH Urine WBC (Auto) Urine Creatinine Urine Total Protein Fluid Total Protein Vancomycin Trough Rheumatoid Factor Complement C4 Miscellaneous Test Crossmatch See Detail 11/07/16 11/07/16 11/07/16 12:52 18:51 21:26 WBC RBC Hgb Hct MCV MCH MCHC RDW Plt Count Lymph % (Auto) [place] % (Auto) Lymph # [place] # Baso # Seg Neutrophils % Seg Neuts % (Manual) Lymphocytes % (Manual) Monocytes % (Manual) Eosinophils % (Manual) Basophils % (Manual) Nucleated RBC % Seg Neutrophils # Seg Neutrophils # Man Lymphocytes # (Manual) Monocytes # (Manual) Eosinophils # (Manual) Basophils # (Manual) PT INR Fibrinogen dRVVT Confirm Interp Factor V Activity POC ABG pH 7.523 H POC ABG pCO2 34.6 L POC ABG pO2 53 L ABG pO2 ABG HCO3 ABG Base Excess ABG Hemoglobin Oxyhemoglobin Sodium Potassium Chloride Carbon Dioxide BUN Creatinine Glucose POC Glucose 142 H 155 H Lactic Acid Calcium Phosphorus Magnesium Direct Bilirubin AST ALT Alkaline Phosphatase Lactate Dehydrogenase Troponin T C-Reactive Protein Total Protein Albumin Prealbumin Triglycerides Cholesterol LDL Cholesterol Direct HDL Cholesterol Urine pH Urine WBC (Auto) Urine Creatinine Urine Total Protein Fluid Total Protein Vancomycin Trough Rheumatoid Factor Complement C4 Miscellaneous Test Crossmatch 11/07/16 11/08/16 11/08/16 21:34 13:03 23:37 WBC RBC 2.63 L Hgb 7.7 L Hct 22.7 L MCV MCH MCHC RDW 17.0 H Plt Count Lymph % (Auto) [place] % (Auto) Lymph # [place] # Baso # Seg Neutrophils % Seg Neuts % (Manual) Lymphocytes % (Manual) Monocytes % (Manual) Eosinophils % (Manual) Basophils % (Manual) Nucleated RBC % Seg Neutrophils # Seg Neutrophils # Man Lymphocytes # (Manual) Monocytes # (Manual) Eosinophils # (Manual) Basophils # (Manual) PT INR Fibrinogen dRVVT Confirm Interp Factor V Activity POC ABG pH 7.478 H POC ABG pCO2 34.0 L POC ABG pO2 50 L ABG pO2 ABG HCO3 ABG Base Excess ABG Hemoglobin Oxyhemoglobin Sodium Potassium Chloride Carbon Dioxide BUN Creatinine Glucose POC Glucose 113 H Lactic Acid Calcium Phosphorus Magnesium Direct Bilirubin AST ALT Alkaline Phosphatase Lactate Dehydrogenase Troponin T C-Reactive Protein Total Protein Albumin Prealbumin Triglycerides Cholesterol LDL Cholesterol Direct HDL Cholesterol Urine pH Urine WBC (Auto) Urine Creatinine Urine Total Protein Fluid Total Protein Vancomycin Trough Rheumatoid Factor Complement C4 Miscellaneous Test Crossmatch 11/09/16 11/09/16 11/09/16 04:35 10:15 18:21 WBC RBC 2.68 L Hgb 7.8 L Hct 23.3 L MCV MCH MCHC RDW 17.0 H Plt Count Lymph % (Auto) [place] % (Auto) 12.1 H Lymph # [place] # 1.1 H Baso # Seg Neutrophils % Seg Neuts % (Manual) Lymphocytes % (Manual) Monocytes % (Manual) Eosinophils % (Manual) Basophils % (Manual) Nucleated RBC % Seg Neutrophils # Seg Neutrophils # Man Lymphocytes # (Manual) Monocytes # (Manual) Eosinophils # (Manual) Basophils # (Manual) PT INR Fibrinogen dRVVT Confirm Interp Factor V Activity POC ABG pH POC ABG pCO2 POC ABG pO2 ABG pO2 ABG HCO3 ABG Base Excess ABG Hemoglobin Oxyhemoglobin Sodium Potassium Chloride Carbon Dioxide BUN 51 H Creatinine 1.8 H Glucose POC Glucose 60 L Lactic Acid Calcium 8.3 L Phosphorus Magnesium Direct Bilirubin AST ALT Alkaline Phosphatase Lactate Dehydrogenase Troponin T C-Reactive Protein Total Protein Albumin Prealbumin Triglycerides Cholesterol LDL Cholesterol Direct HDL Cholesterol Urine pH Urine WBC (Auto) Urine Creatinine Urine Total Protein Fluid Total Protein Vancomycin Trough Rheumatoid Factor Complement C4 Miscellaneous Test Crossmatch 11/09/16 11/10/16 11/10/16 18:55 07:00 11:51 WBC RBC Hgb Hct MCV MCH MCHC RDW Plt Count Lymph % (Auto) [place] % (Auto) Lymph # [place] # Baso # Seg Neutrophils % Seg Neuts % (Manual) Lymphocytes % (Manual) Monocytes % (Manual) Eosinophils % (Manual) Basophils % (Manual) Nucleated RBC % Seg Neutrophils # Seg Neutrophils # Man Lymphocytes # (Manual) Monocytes # (Manual) Eosinophils # (Manual) Basophils # (Manual) PT INR Fibrinogen dRVVT Confirm Interp Factor V Activity POC ABG pH POC ABG pCO2 POC ABG pO2 ABG pO2 ABG HCO3 ABG Base Excess ABG Hemoglobin Oxyhemoglobin Sodium Potassium 3.0 L D Chloride 97.4 L Carbon Dioxide BUN 28 H Creatinine 1.3 H Glucose POC Glucose 68 L 120 H Lactic Acid Calcium 7.8 L Phosphorus Magnesium Direct Bilirubin AST ALT Alkaline Phosphatase Lactate Dehydrogenase Troponin T C-Reactive Protein Total Protein Albumin Prealbumin Triglycerides Cholesterol LDL Cholesterol Direct HDL Cholesterol Urine pH Urine WBC (Auto) Urine Creatinine Urine Total Protein Fluid Total Protein Vancomycin Trough Rheumatoid Factor Complement C4 Miscellaneous Test Crossmatch 11/10/16 11/11/16 11/11/16 14:20 06:59 06:59 WBC RBC 2.81 L Hgb 8.1 L Hct 24.4 L MCV MCH MCHC RDW 16.4 H Plt Count Lymph % (Auto) [place] % (Auto) 10.8 H Lymph # [place] # 1.0 H Baso # Seg Neutrophils % Seg Neuts % (Manual) Lymphocytes % (Manual) Monocytes % (Manual) Eosinophils % (Manual) Basophils % (Manual) Nucleated RBC % Seg Neutrophils # Seg Neutrophils # Man Lymphocytes # (Manual) Monocytes # (Manual) Eosinophils # (Manual) Basophils # (Manual) PT INR Fibrinogen dRVVT Confirm Interp Factor V Activity POC ABG pH POC ABG pCO2 POC ABG pO2 ABG pO2 ABG HCO3 ABG Base Excess ABG Hemoglobin Oxyhemoglobin Sodium Potassium Chloride Carbon Dioxide BUN Creatinine Glucose POC Glucose Lactic Acid Calcium Phosphorus Magnesium Direct Bilirubin AST ALT Alkaline Phosphatase Lactate Dehydrogenase 196 H Troponin T C-Reactive Protein Total Protein 6.1 L Albumin Prealbumin Triglycerides Cholesterol LDL Cholesterol Direct HDL Cholesterol Urine pH Urine WBC (Auto) Urine Creatinine Urine Total Protein Fluid Total Protein < 3.0 L Vancomycin Trough Rheumatoid Factor Complement C4 Miscellaneous Test Crossmatch 11/11/16 11/11/16 11/12/16 06:59 09:50 04:00 WBC RBC Hgb Hct MCV MCH MCHC RDW Plt Count Lymph % (Auto) [place] % (Auto) Lymph # [place] # Baso # Seg Neutrophils % Seg Neuts % (Manual) Lymphocytes % (Manual) Monocytes % (Manual) Eosinophils % (Manual) Basophils % (Manual) Nucleated RBC % Seg Neutrophils # Seg Neutrophils # Man Lymphocytes # (Manual) Monocytes # (Manual) Eosinophils # (Manual) Basophils # (Manual) PT INR 1.18 H Fibrinogen dRVVT Confirm Interp Factor V Activity POC ABG pH POC ABG pCO2 POC ABG pO2 ABG pO2 ABG HCO3 ABG Base Excess ABG Hemoglobin Oxyhemoglobin Sodium 136 L 133 L Potassium Chloride 96.1 L 94.8 L Carbon Dioxide 21 L BUN 37 H 42 H Creatinine 1.8 H 2.0 H Glucose POC Glucose Lactic Acid Calcium Phosphorus Magnesium Direct Bilirubin AST ALT Alkaline Phosphatase Lactate Dehydrogenase Troponin T C-Reactive Protein Total Protein Albumin Prealbumin Triglycerides Cholesterol LDL Cholesterol Direct HDL Cholesterol Urine pH Urine WBC (Auto) Urine Creatinine Urine Total Protein Fluid Total Protein Vancomycin Trough Rheumatoid Factor Complement C4 Miscellaneous Test Crossmatch 11/12/16 11/12/16 11/13/16 04:00 23:55 05:53 WBC RBC Hgb 8.9 L Hct 27.2 L MCV MCH MCHC RDW Plt Count Lymph % (Auto) [place] % (Auto) Lymph # [place] # Baso # Seg Neutrophils % Seg Neuts % (Manual) Lymphocytes % (Manual) Monocytes % (Manual) Eosinophils % (Manual) Basophils % (Manual) Nucleated RBC % Seg Neutrophils # Seg Neutrophils # Man Lymphocytes # (Manual) Monocytes # (Manual) Eosinophils # (Manual) Basophils # (Manual) PT INR Fibrinogen dRVVT Confirm Interp Factor V Activity POC ABG pH POC ABG pCO2 POC ABG pO2 ABG pO2 ABG HCO3 ABG Base Excess ABG Hemoglobin Oxyhemoglobin Sodium Potassium Chloride Carbon Dioxide BUN Creatinine Glucose POC Glucose 132 H 120 H Lactic Acid Calcium Phosphorus Magnesium Direct Bilirubin AST ALT Alkaline Phosphatase Lactate Dehydrogenase Troponin T C-Reactive Protein Total Protein Albumin Prealbumin Triglycerides Cholesterol LDL Cholesterol Direct HDL Cholesterol Urine pH Urine WBC (Auto) Urine Creatinine Urine Total Protein Fluid Total Protein Vancomycin Trough Rheumatoid Factor Complement C4 Miscellaneous Test Crossmatch 11/13/16 11/13/16 11/13/16 11:43 17:09 23:41 WBC RBC Hgb Hct MCV MCH MCHC RDW Plt Count Lymph % (Auto) [place] % (Auto) Lymph # [place] # Baso # Seg Neutrophils % Seg Neuts % (Manual) Lymphocytes % (Manual) Monocytes % (Manual) Eosinophils % (Manual) Basophils % (Manual) Nucleated RBC % Seg Neutrophils # Seg Neutrophils # Man Lymphocytes # (Manual) Monocytes # (Manual) Eosinophils # (Manual) Basophils # (Manual) PT INR Fibrinogen dRVVT Confirm Interp Factor V Activity POC ABG pH POC ABG pCO2 POC ABG pO2 ABG pO2 ABG HCO3 ABG Base Excess ABG Hemoglobin Oxyhemoglobin Sodium Potassium Chloride Carbon Dioxide BUN Creatinine Glucose POC Glucose 114 H 113 H 108 H Lactic Acid Calcium Phosphorus Magnesium Direct Bilirubin AST ALT Alkaline Phosphatase Lactate Dehydrogenase Troponin T C-Reactive Protein Total Protein Albumin Prealbumin Triglycerides Cholesterol LDL Cholesterol Direct HDL Cholesterol Urine pH Urine WBC (Auto) Urine Creatinine Urine Total Protein Fluid Total Protein Vancomycin Trough Rheumatoid Factor Complement C4 Miscellaneous Test Crossmatch 11/13/16 11/15/16 11/15/16 Unknown 00:37 03:30 WBC 11.2 H RBC 2.72 L Hgb 7.6 L Hct 23.4 L MCV MCH MCHC RDW 16.5 H Plt Count Lymph % (Auto) [place] % (Auto) Lymph # [place] # Baso # Seg Neutrophils % Seg Neuts % (Manual) Lymphocytes % (Manual) Monocytes % (Manual) Eosinophils % (Manual) Basophils % (Manual) Nucleated RBC % Seg Neutrophils # Seg Neutrophils # Man Lymphocytes # (Manual) Monocytes # (Manual) Eosinophils # (Manual) Basophils # (Manual) PT INR Fibrinogen dRVVT Confirm Interp Factor V Activity POC ABG pH POC ABG pCO2 POC ABG pO2 ABG pO2 ABG HCO3 ABG Base Excess ABG Hemoglobin Oxyhemoglobin Sodium 135 L Potassium Chloride 95.2 L Carbon Dioxide BUN 52 H Creatinine 2.2 H Glucose POC Glucose 108 H Lactic Acid Calcium Phosphorus Magnesium Direct Bilirubin AST ALT Alkaline Phosphatase Lactate Dehydrogenase Troponin T C-Reactive Protein Total Protein Albumin Prealbumin Triglycerides Cholesterol LDL Cholesterol Direct HDL Cholesterol Urine pH Urine WBC (Auto) Urine Creatinine Urine Total Protein Fluid Total Protein Vancomycin Trough Rheumatoid Factor Complement C4 Miscellaneous Test Crossmatch 11/15/16 11/15/16 11/15/16 03:30 05:04 11:50 WBC RBC Hgb Hct MCV MCH MCHC RDW Plt Count Lymph % (Auto) [place] % (Auto) Lymph # [place] # Baso # Seg Neutrophils % Seg Neuts % (Manual) Lymphocytes % (Manual) Monocytes % (Manual) Eosinophils % (Manual) Basophils % (Manual) Nucleated RBC % Seg Neutrophils # Seg Neutrophils # Man Lymphocytes # (Manual) Monocytes # (Manual) Eosinophils # (Manual) Basophils # (Manual) PT INR Fibrinogen dRVVT Confirm Interp Factor V Activity POC ABG pH POC ABG pCO2 POC ABG pO2 ABG pO2 ABG HCO3 ABG Base Excess ABG Hemoglobin Oxyhemoglobin Sodium Potassium 3.4 L Chloride Carbon Dioxide BUN 25 H Creatinine 1.5 H Glucose 103 H POC Glucose 121 H 144 H Lactic Acid Calcium Phosphorus Magnesium Direct Bilirubin AST ALT Alkaline Phosphatase Lactate Dehydrogenase Troponin T C-Reactive Protein Total Protein Albumin Prealbumin Triglycerides Cholesterol LDL Cholesterol Direct HDL Cholesterol Urine pH Urine WBC (Auto) Urine Creatinine Urine Total Protein Fluid Total Protein Vancomycin Trough Rheumatoid Factor Complement C4 Miscellaneous Test Crossmatch 11/15/16 11/15/16 11/16/16 21:28 23:20 11:44 WBC RBC Hgb Hct MCV MCH MCHC RDW Plt Count Lymph % (Auto) [place] % (Auto) Lymph # [place] # Baso # Seg Neutrophils % Seg Neuts % (Manual) Lymphocytes % (Manual) Monocytes % (Manual) Eosinophils % (Manual) Basophils % (Manual) Nucleated RBC % Seg Neutrophils # Seg Neutrophils # Man Lymphocytes # (Manual) Monocytes # (Manual) Eosinophils # (Manual) Basophils # (Manual) PT INR Fibrinogen dRVVT Confirm Interp Factor V Activity POC ABG pH 7.462 H POC ABG pCO2 POC ABG pO2 71 L ABG pO2 ABG HCO3 ABG Base Excess ABG Hemoglobin Oxyhemoglobin Sodium Potassium Chloride Carbon Dioxide BUN Creatinine Glucose POC Glucose 116 H 133 H Lactic Acid Calcium Phosphorus Magnesium Direct Bilirubin AST ALT Alkaline Phosphatase Lactate Dehydrogenase Troponin T C-Reactive Protein Total Protein Albumin Prealbumin Triglycerides Cholesterol LDL Cholesterol Direct HDL Cholesterol Urine pH Urine WBC (Auto) Urine Creatinine Urine Total Protein Fluid Total Protein Vancomycin Trough Rheumatoid Factor Complement C4 Miscellaneous Test Crossmatch 11/16/16 11/16/16 11/16/16 12:20 17:05 23:35 WBC 11.7 H RBC 2.73 L Hgb 7.6 L Hct 23.7 L MCV MCH MCHC RDW 16.6 H Plt Count Lymph % (Auto) [place] % (Auto) Lymph # [place] # Baso # Seg Neutrophils % Seg Neuts % (Manual) Lymphocytes % (Manual) Monocytes % (Manual) Eosinophils % (Manual) Basophils % (Manual) Nucleated RBC % Seg Neutrophils # Seg Neutrophils # Man Lymphocytes # (Manual) Monocytes # (Manual) Eosinophils # (Manual) Basophils # (Manual) PT INR Fibrinogen dRVVT Confirm Interp Factor V Activity POC ABG pH POC ABG pCO2 POC ABG pO2 ABG pO2 ABG HCO3 ABG Base Excess ABG Hemoglobin Oxyhemoglobin Sodium Potassium Chloride Carbon Dioxide BUN Creatinine Glucose POC Glucose 154 H 125 H Lactic Acid Calcium Phosphorus Magnesium Direct Bilirubin AST ALT Alkaline Phosphatase Lactate Dehydrogenase Troponin T C-Reactive Protein Total Protein Albumin Prealbumin Triglycerides Cholesterol LDL Cholesterol Direct HDL Cholesterol Urine pH Urine WBC (Auto) Urine Creatinine Urine Total Protein Fluid Total Protein Vancomycin Trough Rheumatoid Factor Complement C4 Miscellaneous Test Crossmatch 11/17/16 11/17/16 11/17/16 03:20 03:20 03:20 WBC RBC 2.55 L Hgb 7.3 L Hct 21.9 L MCV MCH MCHC RDW 16.6 H Plt Count Lymph % (Auto) [place] % (Auto) 11.5 H Lymph # [place] # 1.1 H Baso # Seg Neutrophils % Seg Neuts % (Manual) Lymphocytes % (Manual) Monocytes % (Manual) Eosinophils % (Manual) Basophils % (Manual) Nucleated RBC % Seg Neutrophils # Seg Neutrophils # Man Lymphocytes # (Manual) Monocytes # (Manual) Eosinophils # (Manual) Basophils # (Manual) PT 16.8 H INR 1.37 H Fibrinogen dRVVT Confirm Interp Factor V Activity POC ABG pH POC ABG pCO2 POC ABG pO2 ABG pO2 ABG HCO3 ABG Base Excess ABG Hemoglobin Oxyhemoglobin Sodium Potassium 3.5 L Chloride Carbon Dioxide BUN 21 H Creatinine Glucose POC Glucose Lactic Acid Calcium 7.9 L Phosphorus Magnesium Direct Bilirubin AST ALT Alkaline Phosphatase Lactate Dehydrogenase Troponin T C-Reactive Protein Total Protein Albumin Prealbumin Triglycerides Cholesterol LDL Cholesterol Direct HDL Cholesterol Urine pH Urine WBC (Auto) Urine Creatinine Urine Total Protein Fluid Total Protein Vancomycin Trough Rheumatoid Factor Complement C4 Miscellaneous Test Crossmatch 11/17/16 11/17/16 11/17/16 06:34 11:21 21:22 WBC RBC Hgb Hct MCV MCH MCHC RDW Plt Count Lymph % (Auto) [place] % (Auto) Lymph # [place] # Baso # Seg Neutrophils % Seg Neuts % (Manual) Lymphocytes % (Manual) Monocytes % (Manual) Eosinophils % (Manual) Basophils % (Manual) Nucleated RBC % Seg Neutrophils # Seg Neutrophils # Man Lymphocytes # (Manual) Monocytes # (Manual) Eosinophils # (Manual) Basophils # (Manual) PT INR Fibrinogen dRVVT Confirm Interp Factor V Activity POC ABG pH 7.467 H POC ABG pCO2 POC ABG pO2 73 L ABG pO2 ABG HCO3 ABG Base Excess ABG Hemoglobin Oxyhemoglobin Sodium Potassium Chloride Carbon Dioxide BUN Creatinine Glucose POC Glucose 121 H 119 H Lactic Acid Calcium Phosphorus Magnesium Direct Bilirubin AST ALT Alkaline Phosphatase Lactate Dehydrogenase Troponin T C-Reactive Protein Total Protein Albumin Prealbumin Triglycerides Cholesterol LDL Cholesterol Direct HDL Cholesterol Urine pH Urine WBC (Auto) Urine Creatinine Urine Total Protein Fluid Total Protein Vancomycin Trough Rheumatoid Factor Complement C4 Miscellaneous Test Crossmatch 11/18/16 11/18/16 11/19/16 12:16 17:19 00:00 WBC RBC Hgb Hct MCV MCH MCHC RDW Plt Count Lymph % (Auto) [place] % (Auto) Lymph # [place] # Baso # Seg Neutrophils % Seg Neuts % (Manual) Lymphocytes % (Manual) Monocytes % (Manual) Eosinophils % (Manual) Basophils % (Manual) Nucleated RBC % Seg Neutrophils # Seg Neutrophils # Man Lymphocytes # (Manual) Monocytes # (Manual) Eosinophils # (Manual) Basophils # (Manual) PT INR Fibrinogen dRVVT Confirm Interp Factor V Activity POC ABG pH POC ABG pCO2 POC ABG pO2 ABG pO2 ABG HCO3 ABG Base Excess ABG Hemoglobin Oxyhemoglobin Sodium Potassium Chloride Carbon Dioxide BUN Creatinine Glucose POC Glucose 124 H 162 H 139 H Lactic Acid Calcium Phosphorus Magnesium Direct Bilirubin AST ALT Alkaline Phosphatase Lactate Dehydrogenase Troponin T C-Reactive Protein Total Protein Albumin Prealbumin Triglycerides Cholesterol LDL Cholesterol Direct HDL Cholesterol Urine pH Urine WBC (Auto) Urine Creatinine Urine Total Protein Fluid Total Protein Vancomycin Trough Rheumatoid Factor Complement C4 Miscellaneous Test Crossmatch 11/19/16 11/19/16 11/20/16 05:00 12:43 00:40 WBC RBC Hgb Hct MCV MCH MCHC RDW Plt Count Lymph % (Auto) [place] % (Auto) Lymph # [place] # Baso # Seg Neutrophils % Seg Neuts % (Manual) Lymphocytes % (Manual) Monocytes % (Manual) Eosinophils % (Manual) Basophils % (Manual) Nucleated RBC % Seg Neutrophils # Seg Neutrophils # Man Lymphocytes # (Manual) Monocytes # (Manual) Eosinophils # (Manual) Basophils # (Manual) PT INR Fibrinogen dRVVT Confirm Interp Factor V Activity POC ABG pH POC ABG pCO2 POC ABG pO2 ABG pO2 ABG HCO3 ABG Base Excess ABG Hemoglobin Oxyhemoglobin Sodium Potassium Chloride Carbon Dioxide BUN Creatinine Glucose POC Glucose 110 H 125 H 136 H Lactic Acid Calcium Phosphorus Magnesium Direct Bilirubin AST ALT Alkaline Phosphatase Lactate Dehydrogenase Troponin T C-Reactive Protein Total Protein Albumin Prealbumin Triglycerides Cholesterol LDL Cholesterol Direct HDL Cholesterol Urine pH Urine WBC (Auto) Urine Creatinine Urine Total Protein Fluid Total Protein Vancomycin Trough Rheumatoid Factor Complement C4 Miscellaneous Test Crossmatch 11/20/16 11/20/16 11/20/16 05:00 05:00 05:51 WBC 13.1 H RBC 2.74 L Hgb 7.7 L Hct 23.6 L MCV MCH MCHC RDW 16.9 H Plt Count Lymph % (Auto) [place] % (Auto) 10.8 H Lymph # [place] # 1.4 H Baso # Seg Neutrophils % Seg Neuts % (Manual) Lymphocytes % (Manual) Monocytes % (Manual) Eosinophils % (Manual) Basophils % (Manual) Nucleated RBC % Seg Neutrophils # 7.9 H Seg Neutrophils # Man Lymphocytes # (Manual) Monocytes # (Manual) Eosinophils # (Manual) Basophils # (Manual) PT INR Fibrinogen dRVVT Confirm Interp Factor V Activity POC ABG pH POC ABG pCO2 POC ABG pO2 ABG pO2 ABG HCO3 ABG Base Excess ABG Hemoglobin Oxyhemoglobin Sodium Potassium Chloride Carbon Dioxide BUN 31 H Creatinine 1.8 H Glucose 129 H POC Glucose 133 H Lactic Acid Calcium Phosphorus Magnesium Direct Bilirubin AST ALT Alkaline Phosphatase Lactate Dehydrogenase Troponin T C-Reactive Protein Total Protein Albumin Prealbumin Triglycerides Cholesterol LDL Cholesterol Direct HDL Cholesterol Urine pH Urine WBC (Auto) Urine Creatinine Urine Total Protein Fluid Total Protein Vancomycin Trough Rheumatoid Factor Complement C4 Miscellaneous Test Crossmatch 11/20/16 11/20/16 11/21/16 12:40 18:10 01:20 WBC RBC Hgb Hct MCV MCH MCHC RDW Plt Count Lymph % (Auto) [place] % (Auto) Lymph # [place] # Baso # Seg Neutrophils % Seg Neuts % (Manual) Lymphocytes % (Manual) Monocytes % (Manual) Eosinophils % (Manual) Basophils % (Manual) Nucleated RBC % Seg Neutrophils # Seg Neutrophils # Man Lymphocytes # (Manual) Monocytes # (Manual) Eosinophils # (Manual) Basophils # (Manual) PT INR Fibrinogen dRVVT Confirm Interp Factor V Activity POC ABG pH POC ABG pCO2 POC ABG pO2 ABG pO2 ABG HCO3 ABG Base Excess ABG Hemoglobin Oxyhemoglobin Sodium Potassium Chloride Carbon Dioxide BUN Creatinine Glucose POC Glucose 134 H 138 H 136 H Lactic Acid Calcium Phosphorus Magnesium Direct Bilirubin AST ALT Alkaline Phosphatase Lactate Dehydrogenase Troponin T C-Reactive Protein Total Protein Albumin Prealbumin Triglycerides Cholesterol LDL Cholesterol Direct HDL Cholesterol Urine pH Urine WBC (Auto) Urine Creatinine Urine Total Protein Fluid Total Protein Vancomycin Trough Rheumatoid Factor Complement C4 Miscellaneous Test Crossmatch 11/21/16 11/21/16 11/21/16 07:04 07:45 07:45 WBC 22.0 H RBC 2.91 L Hgb 8.2 L Hct 25.4 L MCV MCH MCHC RDW 17.1 H Plt Count Lymph % (Auto) [place] % (Auto) Lymph # [place] # Baso # Seg Neutrophils % Seg Neuts % (Manual) Lymphocytes % (Manual) 8.0 L Monocytes % (Manual) Eosinophils % (Manual) Basophils % (Manual) Nucleated RBC % Seg Neutrophils # Seg Neutrophils # Man 14.7 H Lymphocytes # (Manual) Monocytes # (Manual) 1.1 H Eosinophils # (Manual) Basophils # (Manual) PT INR Fibrinogen dRVVT Confirm Interp Factor V Activity POC ABG pH POC ABG pCO2 POC ABG pO2 ABG pO2 ABG HCO3 ABG Base Excess ABG Hemoglobin Oxyhemoglobin Sodium Potassium Chloride Carbon Dioxide BUN 42 H Creatinine 2.0 H Glucose POC Glucose 108 H Lactic Acid Calcium Phosphorus Magnesium Direct Bilirubin AST ALT Alkaline Phosphatase Lactate Dehydrogenase Troponin T C-Reactive Protein Total Protein Albumin Prealbumin Triglycerides Cholesterol LDL Cholesterol Direct HDL Cholesterol Urine pH Urine WBC (Auto) Urine Creatinine Urine Total Protein Fluid Total Protein Vancomycin Trough Rheumatoid Factor Complement C4 Miscellaneous Test Crossmatch 11/21/16 11/21/16 11/21/16 08:38 10:09 11:20 WBC RBC Hgb Hct MCV MCH MCHC RDW Plt Count Lymph % (Auto) [place] % (Auto) Lymph # [place] # Baso # Seg Neutrophils % Seg Neuts % (Manual) Lymphocytes % (Manual) Monocytes % (Manual) Eosinophils % (Manual) Basophils % (Manual) Nucleated RBC % Seg Neutrophils # Seg Neutrophils # Man Lymphocytes # (Manual) Monocytes # (Manual) Eosinophils # (Manual) Basophils # (Manual) PT INR Fibrinogen dRVVT Confirm Interp Factor V Activity POC ABG pH 7.346 L POC ABG pCO2 34.4 L POC ABG pO2 314 H ABG pO2 ABG HCO3 ABG Base Excess ABG Hemoglobin Oxyhemoglobin Sodium Potassium Chloride Carbon Dioxide BUN Creatinine Glucose POC Glucose 195 H 153 H Lactic Acid Calcium Phosphorus Magnesium Direct Bilirubin AST ALT Alkaline Phosphatase Lactate Dehydrogenase Troponin T C-Reactive Protein Total Protein Albumin Prealbumin Triglycerides Cholesterol LDL Cholesterol Direct HDL Cholesterol Urine pH Urine WBC (Auto) Urine Creatinine Urine Total Protein Fluid Total Protein Vancomycin Trough Rheumatoid Factor Complement C4 Miscellaneous Test Crossmatch 11/21/16 11/22/16 11/22/16 23:37 04:48 05:00 WBC 29.7 H RBC 2.73 L Hgb 7.5 L Hct 24.2 L MCV MCH 27 L MCHC RDW 17.4 H Plt Count Lymph % (Auto) [place] % (Auto) Lymph # [place] # Baso # Seg Neutrophils % Seg Neuts % (Manual) Lymphocytes % (Manual) 7.0 L Monocytes % (Manual) Eosinophils % (Manual) Basophils % (Manual) Nucleated RBC % Seg Neutrophils # Seg Neutrophils # Man 15.4 H Lymphocytes # (Manual) Monocytes # (Manual) Eosinophils # (Manual) Basophils # (Manual) PT INR Fibrinogen dRVVT Confirm Interp Factor V Activity POC ABG pH POC ABG pCO2 24.6 L POC ABG pO2 189 H ABG pO2 ABG HCO3 ABG Base Excess ABG Hemoglobin Oxyhemoglobin Sodium Potassium Chloride Carbon Dioxide BUN Creatinine Glucose POC Glucose 65 L Lactic Acid Calcium Phosphorus Magnesium Direct Bilirubin AST ALT Alkaline Phosphatase Lactate Dehydrogenase Troponin T C-Reactive Protein Total Protein Albumin Prealbumin Triglycerides Cholesterol LDL Cholesterol Direct HDL Cholesterol Urine pH Urine WBC (Auto) Urine Creatinine Urine Total Protein Fluid Total Protein Vancomycin Trough Rheumatoid Factor Complement C4 Miscellaneous Test Crossmatch 11/22/16 11/23/16 11/23/16 05:00 03:44 04:06 WBC RBC 2.52 L Hgb 7.2 L Hct 21.5 L MCV MCH MCHC RDW 17.1 H Plt Count Lymph % (Auto) [place] % (Auto) 12.4 H Lymph # [place] # 1.4 H Baso # Seg Neutrophils % Seg Neuts % (Manual) Lymphocytes % (Manual) Monocytes % (Manual) Eosinophils % (Manual) Basophils % (Manual) Nucleated RBC % Seg Neutrophils # Seg Neutrophils # Man Lymphocytes # (Manual) Monocytes # (Manual) Eosinophils # (Manual) Basophils # (Manual) PT INR Fibrinogen dRVVT Confirm Interp Factor V Activity POC ABG pH 7.493 H POC ABG pCO2 29.5 L POC ABG pO2 49 L ABG pO2 ABG HCO3 ABG Base Excess ABG Hemoglobin Oxyhemoglobin Sodium 134 L Potassium Chloride 95.9 L Carbon Dioxide 14 L D BUN 51 H Creatinine 2.6 H Glucose POC Glucose Lactic Acid Calcium Phosphorus Magnesium Direct Bilirubin AST ALT Alkaline Phosphatase Lactate Dehydrogenase Troponin T C-Reactive Protein Total Protein Albumin Prealbumin Triglycerides Cholesterol LDL Cholesterol Direct HDL Cholesterol Urine pH Urine WBC (Auto) Urine Creatinine Urine Total Protein Fluid Total Protein Vancomycin Trough Rheumatoid Factor Complement C4 Miscellaneous Test Crossmatch 11/23/16 11/23/16 11/24/16 04:06 11:29 06:39 WBC RBC Hgb Hct MCV MCH MCHC RDW Plt Count Lymph % (Auto) [place] % (Auto) Lymph # [place] # Baso # Seg Neutrophils % Seg Neuts % (Manual) Lymphocytes % (Manual) Monocytes % (Manual) Eosinophils % (Manual) Basophils % (Manual) Nucleated RBC % Seg Neutrophils # Seg Neutrophils # Man Lymphocytes # (Manual) Monocytes # (Manual) Eosinophils # (Manual) Basophils # (Manual) PT INR Fibrinogen dRVVT Confirm Interp Factor V Activity POC ABG pH POC ABG pCO2 POC ABG pO2 ABG pO2 ABG HCO3 ABG Base Excess ABG Hemoglobin Oxyhemoglobin Sodium 136 L Potassium Chloride 95.2 L Carbon Dioxide BUN 60 H Creatinine 2.9 H Glucose POC Glucose 69 L 305 H Lactic Acid Calcium Phosphorus Magnesium 1.60 L Direct Bilirubin AST ALT Alkaline Phosphatase Lactate Dehydrogenase Troponin T C-Reactive Protein Total Protein Albumin Prealbumin Triglycerides Cholesterol LDL Cholesterol Direct HDL Cholesterol Urine pH Urine WBC (Auto) Urine Creatinine Urine Total Protein Fluid Total Protein Vancomycin Trough Rheumatoid Factor Complement C4 Miscellaneous Test Crossmatch 11/24/16 11/24/16 11/24/16 06:43 08:08 08:08 WBC 11.2 H RBC 2.47 L Hgb 6.8 L Hct 20.6 L MCV MCH MCHC RDW 17.0 H Plt Count Lymph % (Auto) [place] % (Auto) 10.3 H Lymph # [place] # 1.2 H Baso # Seg Neutrophils % Seg Neuts % (Manual) Lymphocytes % (Manual) Monocytes % (Manual) Eosinophils % (Manual) Basophils % (Manual) Nucleated RBC % Seg Neutrophils # Seg Neutrophils # Man Lymphocytes # (Manual) Monocytes # (Manual) Eosinophils # (Manual) Basophils # (Manual) PT INR Fibrinogen dRVVT Confirm Interp Factor V Activity POC ABG pH POC ABG pCO2 POC ABG pO2 ABG pO2 ABG HCO3 ABG Base Excess ABG Hemoglobin Oxyhemoglobin Sodium 135 L Potassium Chloride 96.3 L Carbon Dioxide BUN 61 H Creatinine 3.1 H Glucose POC Glucose 62 L Lactic Acid Calcium 8.2 L Phosphorus Magnesium Direct Bilirubin AST ALT Alkaline Phosphatase Lactate Dehydrogenase Troponin T C-Reactive Protein Total Protein Albumin Prealbumin Triglycerides Cholesterol LDL Cholesterol Direct HDL Cholesterol Urine pH Urine WBC (Auto) Urine Creatinine Urine Total Protein Fluid Total Protein Vancomycin Trough Rheumatoid Factor Complement C4 Miscellaneous Test Crossmatch 11/24/16 11/24/16 11/24/16 08:34 11:20 12:41 WBC RBC Hgb Hct MCV MCH MCHC RDW Plt Count Lymph % (Auto) [place] % (Auto) Lymph # [place] # Baso # Seg Neutrophils % Seg Neuts % (Manual) Lymphocytes % (Manual) Monocytes % (Manual) Eosinophils % (Manual) Basophils % (Manual) Nucleated RBC % Seg Neutrophils # Seg Neutrophils # Man Lymphocytes # (Manual) Monocytes # (Manual) Eosinophils # (Manual) Basophils # (Manual) PT INR Fibrinogen dRVVT Confirm Interp Factor V Activity POC ABG pH POC ABG pCO2 POC ABG pO2 ABG pO2 ABG HCO3 ABG Base Excess ABG Hemoglobin Oxyhemoglobin Sodium Potassium Chloride Carbon Dioxide BUN Creatinine Glucose POC Glucose 108 H Lactic Acid Calcium Phosphorus Magnesium 1.60 L Direct Bilirubin AST ALT Alkaline Phosphatase Lactate Dehydrogenase Troponin T C-Reactive Protein Total Protein Albumin Prealbumin Triglycerides Cholesterol LDL Cholesterol Direct HDL Cholesterol Urine pH Urine WBC (Auto) Urine Creatinine Urine Total Protein Fluid Total Protein Vancomycin Trough Rheumatoid Factor Complement C4 Miscellaneous Test Crossmatch See Detail 11/25/16 11/25/16 11/25/16 00:03 04:42 04:42 WBC RBC 3.03 L Hgb 8.6 L Hct 25.3 L MCV MCH MCHC RDW 16.2 H Plt Count Lymph % (Auto) [place] % (Auto) 8.1 H Lymph # [place] # Baso # Seg Neutrophils % 71.3 H Seg Neuts % (Manual) Lymphocytes % (Manual) Monocytes % (Manual) Eosinophils % (Manual) Basophils % (Manual) Nucleated RBC % Seg Neutrophils # Seg Neutrophils # Man Lymphocytes # (Manual) Monocytes # (Manual) Eosinophils # (Manual) Basophils # (Manual) PT INR Fibrinogen dRVVT Confirm Interp Factor V Activity POC ABG pH POC ABG pCO2 POC ABG pO2 ABG pO2 ABG HCO3 ABG Base Excess ABG Hemoglobin Oxyhemoglobin Sodium Potassium Chloride Carbon Dioxide BUN 61 H Creatinine 3.0 H Glucose 102 H POC Glucose 113 H Lactic Acid Calcium 8.2 L Phosphorus Magnesium Direct Bilirubin AST ALT Alkaline Phosphatase 142 H Lactate Dehydrogenase Troponin T C-Reactive Protein Total Protein 5.7 L Albumin 1.5 L Prealbumin Triglycerides Cholesterol LDL Cholesterol Direct HDL Cholesterol Urine pH Urine WBC (Auto) Urine Creatinine Urine Total Protein Fluid Total Protein Vancomycin Trough Rheumatoid Factor Complement C4 Miscellaneous Test Crossmatch 11/25/16 11/25/16 11/25/16 05:12 11:31 14:12 WBC RBC Hgb Hct MCV MCH MCHC RDW Plt Count Lymph % (Auto) [place] % (Auto) Lymph # [place] # Baso # Seg Neutrophils % Seg Neuts % (Manual) Lymphocytes % (Manual) Monocytes % (Manual) Eosinophils % (Manual) Basophils % (Manual) Nucleated RBC % Seg Neutrophils # Seg Neutrophils # Man Lymphocytes # (Manual) Monocytes # (Manual) Eosinophils # (Manual) Basophils # (Manual) PT INR Fibrinogen dRVVT Confirm Interp Factor V Activity POC ABG pH 7.487 H POC ABG pCO2 POC ABG pO2 153 H ABG pO2 ABG HCO3 ABG Base Excess ABG Hemoglobin Oxyhemoglobin Sodium Potassium Chloride Carbon Dioxide BUN Creatinine Glucose POC Glucose 131 H 140 H Lactic Acid Calcium Phosphorus Magnesium Direct Bilirubin AST ALT Alkaline Phosphatase Lactate Dehydrogenase Troponin T C-Reactive Protein Total Protein Albumin Prealbumin Triglycerides Cholesterol LDL Cholesterol Direct HDL Cholesterol Urine pH Urine WBC (Auto) Urine Creatinine Urine Total Protein Fluid Total Protein Vancomycin Trough Rheumatoid Factor Complement C4 Miscellaneous Test Crossmatch 11/25/16 11/26/16 11/26/16 17:23 00:09 05:13 WBC RBC 2.94 L Hgb 8.4 L Hct 24.6 L MCV MCH MCHC RDW 16.4 H Plt Count Lymph % (Auto) [place] % (Auto) 12.3 H Lymph # [place] # 1.1 H Baso # Seg Neutrophils % Seg Neuts % (Manual) Lymphocytes % (Manual) Monocytes % (Manual) Eosinophils % (Manual) Basophils % (Manual) Nucleated RBC % Seg Neutrophils # Seg Neutrophils # Man Lymphocytes # (Manual) Monocytes # (Manual) Eosinophils # (Manual) Basophils # (Manual) PT INR Fibrinogen dRVVT Confirm Interp Factor V Activity POC ABG pH POC ABG pCO2 POC ABG pO2 ABG pO2 ABG HCO3 ABG Base Excess ABG Hemoglobin Oxyhemoglobin Sodium Potassium Chloride Carbon Dioxide BUN Creatinine Glucose POC Glucose 146 H 112 H Lactic Acid Calcium Phosphorus Magnesium Direct Bilirubin AST ALT Alkaline Phosphatase Lactate Dehydrogenase Troponin T C-Reactive Protein Total Protein Albumin Prealbumin Triglycerides Cholesterol LDL Cholesterol Direct HDL Cholesterol Urine pH Urine WBC (Auto) Urine Creatinine Urine Total Protein Fluid Total Protein Vancomycin Trough Rheumatoid Factor Complement C4 Miscellaneous Test Crossmatch 11/26/16 11/26/16 11/26/16 05:13 05:28 11:53 WBC RBC Hgb Hct MCV MCH MCHC RDW Plt Count Lymph % (Auto) [place] % (Auto) Lymph # [place] # Baso # Seg Neutrophils % Seg Neuts % (Manual) Lymphocytes % (Manual) Monocytes % (Manual) Eosinophils % (Manual) Basophils % (Manual) Nucleated RBC % Seg Neutrophils # Seg Neutrophils # Man Lymphocytes # (Manual) Monocytes # (Manual) Eosinophils # (Manual) Basophils # (Manual) PT INR Fibrinogen dRVVT Confirm Interp Factor V Activity POC ABG pH POC ABG pCO2 POC ABG pO2 ABG pO2 ABG HCO3 ABG Base Excess ABG Hemoglobin Oxyhemoglobin Sodium Potassium Chloride 97.8 L Carbon Dioxide BUN 37 H Creatinine 2.0 H Glucose 109 H POC Glucose 117 H 111 H Lactic Acid Calcium 7.9 L Phosphorus 1.80 L D Magnesium Direct Bilirubin AST ALT Alkaline Phosphatase Lactate Dehydrogenase Troponin T C-Reactive Protein Total Protein Albumin Prealbumin Triglycerides Cholesterol LDL Cholesterol Direct HDL Cholesterol Urine pH Urine WBC (Auto) Urine Creatinine Urine Total Protein Fluid Total Protein Vancomycin Trough Rheumatoid Factor Complement C4 Miscellaneous Test Crossmatch 11/26/16 11/27/16 11/27/16 17:14 04:50 06:02 WBC RBC Hgb Hct MCV MCH MCHC RDW Plt Count Lymph % (Auto) [place] % (Auto) Lymph # [place] # Baso # Seg Neutrophils % Seg Neuts % (Manual) Lymphocytes % (Manual) Monocytes % (Manual) Eosinophils % (Manual) Basophils % (Manual) Nucleated RBC % Seg Neutrophils # Seg Neutrophils # Man Lymphocytes # (Manual) Monocytes # (Manual) Eosinophils # (Manual) Basophils # (Manual) PT INR Fibrinogen dRVVT Confirm Interp Factor V Activity POC ABG pH POC ABG pCO2 POC ABG pO2 ABG pO2 75.2 L ABG HCO3 26.4 H ABG Base Excess ABG Hemoglobin 7.6 L Oxyhemoglobin 94.8 L Sodium Potassium Chloride Carbon Dioxide BUN 49 H Creatinine 2.3 H Glucose POC Glucose 115 H Lactic Acid Calcium Phosphorus 1.50 L Magnesium Direct Bilirubin AST ALT Alkaline Phosphatase Lactate Dehydrogenase Troponin T C-Reactive Protein Total Protein Albumin Prealbumin Triglycerides Cholesterol LDL Cholesterol Direct HDL Cholesterol Urine pH Urine WBC (Auto) Urine Creatinine Urine Total Protein Fluid Total Protein Vancomycin Trough Rheumatoid Factor Complement C4 Miscellaneous Test Crossmatch 11/27/16 11/27/16 11/27/16 06:02 11:25 17:25 WBC 11.6 H RBC 2.75 L Hgb 7.6 L Hct 23.4 L MCV MCH MCHC RDW 16.5 H Plt Count Lymph % (Auto) [place] % (Auto) Lymph # [place] # Baso # Seg Neutrophils % Seg Neuts % (Manual) Lymphocytes % (Manual) Monocytes % (Manual) Eosinophils % (Manual) Basophils % (Manual) Nucleated RBC % Seg Neutrophils # Seg Neutrophils # Man Lymphocytes # (Manual) Monocytes # (Manual) Eosinophils # (Manual) Basophils # (Manual) PT INR Fibrinogen dRVVT Confirm Interp Factor V Activity POC ABG pH POC ABG pCO2 POC ABG pO2 ABG pO2 ABG HCO3 ABG Base Excess ABG Hemoglobin Oxyhemoglobin Sodium Potassium Chloride Carbon Dioxide BUN Creatinine Glucose POC Glucose 114 H 126 H Lactic Acid Calcium Phosphorus Magnesium Direct Bilirubin AST ALT Alkaline Phosphatase Lactate Dehydrogenase Troponin T C-Reactive Protein Total Protein Albumin Prealbumin Triglycerides Cholesterol LDL Cholesterol Direct HDL Cholesterol Urine pH Urine WBC (Auto) Urine Creatinine Urine Total Protein Fluid Total Protein Vancomycin Trough Rheumatoid Factor Complement C4 Miscellaneous Test Crossmatch 11/28/16 11/28/16 11/28/16 04:45 05:33 05:44 WBC RBC Hgb Hct MCV MCH MCHC RDW Plt Count Lymph % (Auto) [place] % (Auto) Lymph # [place] # Baso # Seg Neutrophils % Seg Neuts % (Manual) Lymphocytes % (Manual) Monocytes % (Manual) Eosinophils % (Manual) Basophils % (Manual) Nucleated RBC % Seg Neutrophils # Seg Neutrophils # Man Lymphocytes # (Manual) Monocytes # (Manual) Eosinophils # (Manual) Basophils # (Manual) PT INR Fibrinogen dRVVT Confirm Interp Factor V Activity POC ABG pH POC ABG pCO2 POC ABG pO2 ABG pO2 99.3 H ABG HCO3 ABG Base Excess ABG Hemoglobin 8.3 L Oxyhemoglobin Sodium Potassium Chloride Carbon Dioxide BUN 63 H Creatinine 2.4 H Glucose 102 H POC Glucose 108 H Lactic Acid Calcium Phosphorus 1.80 L Magnesium Direct Bilirubin AST ALT Alkaline Phosphatase Lactate Dehydrogenase Troponin T C-Reactive Protein Total Protein Albumin Prealbumin Triglycerides Cholesterol LDL Cholesterol Direct HDL Cholesterol Urine pH Urine WBC (Auto) Urine Creatinine Urine Total Protein Fluid Total Protein Vancomycin Trough Rheumatoid Factor Complement C4 Miscellaneous Test Crossmatch 11/28/16 11/28/16 11/28/16 12:31 16:09 23:46 WBC RBC Hgb Hct MCV MCH MCHC RDW Plt Count Lymph % (Auto) [place] % (Auto) Lymph # [place] # Baso # Seg Neutrophils % Seg Neuts % (Manual) Lymphocytes % (Manual) Monocytes % (Manual) Eosinophils % (Manual) Basophils % (Manual) Nucleated RBC % Seg Neutrophils # Seg Neutrophils # Man Lymphocytes # (Manual) Monocytes # (Manual) Eosinophils # (Manual) Basophils # (Manual) PT INR Fibrinogen dRVVT Confirm Interp Factor V Activity POC ABG pH POC ABG pCO2 POC ABG pO2 ABG pO2 ABG HCO3 ABG Base Excess ABG Hemoglobin Oxyhemoglobin Sodium Potassium Chloride Carbon Dioxide BUN Creatinine Glucose POC Glucose 126 H 111 H 119 H Lactic Acid Calcium Phosphorus Magnesium Direct Bilirubin AST ALT Alkaline Phosphatase Lactate Dehydrogenase Troponin T C-Reactive Protein Total Protein Albumin Prealbumin Triglycerides Cholesterol LDL Cholesterol Direct HDL Cholesterol Urine pH Urine WBC (Auto) Urine Creatinine Urine Total Protein Fluid Total Protein Vancomycin Trough Rheumatoid Factor Complement C4 Miscellaneous Test Crossmatch 11/29/16 11/29/16 11/29/16 03:33 04:52 05:10 WBC RBC Hgb Hct MCV MCH MCHC RDW Plt Count Lymph % (Auto) [place] % (Auto) Lymph # [place] # Baso # Seg Neutrophils % Seg Neuts % (Manual) Lymphocytes % (Manual) Monocytes % (Manual) Eosinophils % (Manual) Basophils % (Manual) Nucleated RBC % Seg Neutrophils # Seg Neutrophils # Man Lymphocytes # (Manual) Monocytes # (Manual) Eosinophils # (Manual) Basophils # (Manual) PT INR Fibrinogen dRVVT Confirm Interp Factor V Activity POC ABG pH POC ABG pCO2 POC ABG pO2 ABG pO2 ABG HCO3 ABG Base Excess ABG Hemoglobin 7.0 L Oxyhemoglobin 94.9 L Sodium Potassium Chloride Carbon Dioxide BUN 73 H Creatinine 2.7 H Glucose POC Glucose 108 H Lactic Acid Calcium Phosphorus Magnesium Direct Bilirubin AST ALT Alkaline Phosphatase Lactate Dehydrogenase Troponin T C-Reactive Protein Total Protein Albumin Prealbumin Triglycerides Cholesterol LDL Cholesterol Direct HDL Cholesterol Urine pH Urine WBC (Auto) Urine Creatinine Urine Total Protein Fluid Total Protein Vancomycin Trough Rheumatoid Factor Complement C4 Miscellaneous Test Crossmatch 11/29/16 11/29/16 11/29/16 12:16 18:05 23:46 WBC RBC Hgb Hct MCV MCH MCHC RDW Plt Count Lymph % (Auto) [place] % (Auto) Lymph # [place] # Baso # Seg Neutrophils % Seg Neuts % (Manual) Lymphocytes % (Manual) Monocytes % (Manual) Eosinophils % (Manual) Basophils % (Manual) Nucleated RBC % Seg Neutrophils # Seg Neutrophils # Man Lymphocytes # (Manual) Monocytes # (Manual) Eosinophils # (Manual) Basophils # (Manual) PT INR Fibrinogen dRVVT Confirm Interp Factor V Activity POC ABG pH POC ABG pCO2 POC ABG pO2 ABG pO2 ABG HCO3 ABG Base Excess ABG Hemoglobin Oxyhemoglobin Sodium Potassium Chloride Carbon Dioxide BUN Creatinine Glucose POC Glucose 133 H 146 H 141 H Lactic Acid Calcium Phosphorus Magnesium Direct Bilirubin AST ALT Alkaline Phosphatase Lactate Dehydrogenase Troponin T C-Reactive Protein Total Protein Albumin Prealbumin Triglycerides Cholesterol LDL Cholesterol Direct HDL Cholesterol Urine pH Urine WBC (Auto) Urine Creatinine Urine Total Protein Fluid Total Protein Vancomycin Trough Rheumatoid Factor Complement C4 Miscellaneous Test Crossmatch 11/30/16 11/30/16 11/30/16 04:17 04:17 04:32 WBC 12.0 H RBC 2.80 L Hgb 7.8 L Hct 23.6 L MCV MCH MCHC RDW 16.6 H Plt Count Lymph % (Auto) [place] % (Auto) 11.3 H Lymph # [place] # 1.4 H Baso # Seg Neutrophils % Seg Neuts % (Manual) Lymphocytes % (Manual) Monocytes % (Manual) Eosinophils % (Manual) Basophils % (Manual) Nucleated RBC % Seg Neutrophils # 8.2 H Seg Neutrophils # Man Lymphocytes # (Manual) Monocytes # (Manual) Eosinophils # (Manual) Basophils # (Manual) PT INR Fibrinogen dRVVT Confirm Interp Factor V Activity POC ABG pH POC ABG pCO2 POC ABG pO2 ABG pO2 ABG HCO3 ABG Base Excess ABG Hemoglobin Oxyhemoglobin Sodium 169 H* D Potassium 5.1 H Chloride 121.5 H Carbon Dioxide BUN 34 H Creatinine 1.3 H D Glucose 133 H POC Glucose 131 H Lactic Acid Calcium 10.3 H Phosphorus Magnesium Direct Bilirubin AST ALT Alkaline Phosphatase Lactate Dehydrogenase Troponin T C-Reactive Protein Total Protein Albumin Prealbumin Triglycerides Cholesterol LDL Cholesterol Direct HDL Cholesterol Urine pH Urine WBC (Auto) Urine Creatinine Urine Total Protein Fluid Total Protein Vancomycin Trough Rheumatoid Factor Complement C4 Miscellaneous Test Crossmatch 11/30/16 11/30/16 11/30/16 05:45 11:10 17:26 WBC RBC Hgb Hct MCV MCH MCHC RDW Plt Count Lymph % (Auto) [place] % (Auto) Lymph # [place] # Baso # Seg Neutrophils % Seg Neuts % (Manual) Lymphocytes % (Manual) Monocytes % (Manual) Eosinophils % (Manual) Basophils % (Manual) Nucleated RBC % Seg Neutrophils # Seg Neutrophils # Man Lymphocytes # (Manual) Monocytes # (Manual) Eosinophils # (Manual) Basophils # (Manual) PT INR Fibrinogen dRVVT Confirm Interp Factor V Activity POC ABG pH POC ABG pCO2 POC ABG pO2 ABG pO2 ABG HCO3 ABG Base Excess ABG Hemoglobin Oxyhemoglobin Sodium Potassium Chloride Carbon Dioxide BUN 45 H Creatinine 1.6 H Glucose 131 H POC Glucose 146 H 134 H Lactic Acid Calcium Phosphorus Magnesium Direct Bilirubin AST ALT Alkaline Phosphatase Lactate Dehydrogenase Troponin T C-Reactive Protein Total Protein Albumin Prealbumin Triglycerides Cholesterol LDL Cholesterol Direct HDL Cholesterol Urine pH Urine WBC (Auto) Urine Creatinine Urine Total Protein Fluid Total Protein Vancomycin Trough Rheumatoid Factor Complement C4 Miscellaneous Test Crossmatch 11/30/16 12/01/16 12/01/16 23:35 00:06 03:35 WBC RBC Hgb Hct MCV MCH MCHC RDW Plt Count Lymph % (Auto) [place] % (Auto) Lymph # [place] # Baso # Seg Neutrophils % Seg Neuts % (Manual) Lymphocytes % (Manual) Monocytes % (Manual) Eosinophils % (Manual) Basophils % (Manual) Nucleated RBC % Seg Neutrophils # Seg Neutrophils # Man Lymphocytes # (Manual) Monocytes # (Manual) Eosinophils # (Manual) Basophils # (Manual) PT INR Fibrinogen dRVVT Confirm Interp Factor V Activity POC ABG pH POC ABG pCO2 POC ABG pO2 ABG pO2 ABG HCO3 ABG Base Excess ABG Hemoglobin 6.9 L Oxyhemoglobin Sodium Potassium Chloride Carbon Dioxide BUN 58 H Creatinine 1.8 H Glucose 146 H POC Glucose 151 H Lactic Acid Calcium Phosphorus Magnesium Direct Bilirubin AST ALT Alkaline Phosphatase Lactate Dehydrogenase Troponin T C-Reactive Protein Total Protein Albumin Prealbumin Triglycerides Cholesterol LDL Cholesterol Direct HDL Cholesterol Urine pH Urine WBC (Auto) Urine Creatinine Urine Total Protein Fluid Total Protein Vancomycin Trough Rheumatoid Factor Complement C4 Miscellaneous Test Crossmatch 12/01/16 12/01/16 12/01/16 03:35 05:47 11:52 WBC 12.3 H RBC 2.82 L Hgb 7.8 L Hct 23.7 L MCV MCH MCHC RDW 16.7 H Plt Count Lymph % (Auto) [place] % (Auto) 9.8 H Lymph # [place] # 1.2 H Baso # Seg Neutrophils % Seg Neuts % (Manual) Lymphocytes % (Manual) Monocytes % (Manual) Eosinophils % (Manual) Basophils % (Manual) Nucleated RBC % Seg Neutrophils # 8.4 H Seg Neutrophils # Man Lymphocytes # (Manual) Monocytes # (Manual) Eosinophils # (Manual) Basophils # (Manual) PT INR Fibrinogen dRVVT Confirm Interp Factor V Activity POC ABG pH POC ABG pCO2 POC ABG pO2 ABG pO2 ABG HCO3 ABG Base Excess ABG Hemoglobin Oxyhemoglobin Sodium Potassium Chloride Carbon Dioxide BUN Creatinine Glucose POC Glucose 152 H 152 H Lactic Acid Calcium Phosphorus Magnesium Direct Bilirubin AST ALT Alkaline Phosphatase Lactate Dehydrogenase Troponin T C-Reactive Protein Total Protein Albumin Prealbumin Triglycerides Cholesterol LDL Cholesterol Direct HDL Cholesterol Urine pH Urine WBC (Auto) Urine Creatinine Urine Total Protein Fluid Total Protein Vancomycin Trough Rheumatoid Factor Complement C4 Miscellaneous Test Crossmatch 12/01/16 12/01/16 12/02/16 17:40 23:41 05:00 WBC RBC Hgb Hct MCV MCH MCHC RDW Plt Count Lymph % (Auto) [place] % (Auto) Lymph # [place] # Baso # Seg Neutrophils % Seg Neuts % (Manual) Lymphocytes % (Manual) Monocytes % (Manual) Eosinophils % (Manual) Basophils % (Manual) Nucleated RBC % Seg Neutrophils # Seg Neutrophils # Man Lymphocytes # (Manual) Monocytes # (Manual) Eosinophils # (Manual) Basophils # (Manual) PT INR Fibrinogen dRVVT Confirm Interp Factor V Activity POC ABG pH POC ABG pCO2 POC ABG pO2 ABG pO2 ABG HCO3 ABG Base Excess ABG Hemoglobin Oxyhemoglobin Sodium Potassium Chloride Carbon Dioxide BUN 45 H Creatinine Glucose 115 H POC Glucose 140 H 144 H Lactic Acid Calcium Phosphorus Magnesium Direct Bilirubin AST ALT Alkaline Phosphatase Lactate Dehydrogenase Troponin T C-Reactive Protein Total Protein Albumin Prealbumin Triglycerides Cholesterol LDL Cholesterol Direct HDL Cholesterol Urine pH Urine WBC (Auto) Urine Creatinine Urine Total Protein Fluid Total Protein Vancomycin Trough Rheumatoid Factor Complement C4 Miscellaneous Test Crossmatch 12/02/16 12/02/16 12/02/16 05:31 11:20 17:38 WBC RBC Hgb Hct MCV MCH MCHC RDW Plt Count Lymph % (Auto) [place] % (Auto) Lymph # [place] # Baso # Seg Neutrophils % Seg Neuts % (Manual) Lymphocytes % (Manual) Monocytes % (Manual) Eosinophils % (Manual) Basophils % (Manual) Nucleated RBC % Seg Neutrophils # Seg Neutrophils # Man Lymphocytes # (Manual) Monocytes # (Manual) Eosinophils # (Manual) Basophils # (Manual) PT INR Fibrinogen dRVVT Confirm Interp Factor V Activity POC ABG pH POC ABG pCO2 POC ABG pO2 ABG pO2 ABG HCO3 ABG Base Excess ABG Hemoglobin Oxyhemoglobin Sodium Potassium Chloride Carbon Dioxide BUN Creatinine Glucose POC Glucose 136 H 177 H 139 H Lactic Acid Calcium Phosphorus Magnesium Direct Bilirubin AST ALT Alkaline Phosphatase Lactate Dehydrogenase Troponin T C-Reactive Protein Total Protein Albumin Prealbumin Triglycerides Cholesterol LDL Cholesterol Direct HDL Cholesterol Urine pH Urine WBC (Auto) Urine Creatinine Urine Total Protein Fluid Total Protein Vancomycin Trough Rheumatoid Factor Complement C4 Miscellaneous Test Crossmatch 12/02/16 12/03/16 12/03/16 23:43 04:00 04:00 WBC 20.4 H RBC 2.74 L Hgb 7.4 L Hct 23.6 L MCV MCH 27 L MCHC RDW 17.1 H Plt Count Lymph % (Auto) [place] % (Auto) Lymph # [place] # Baso # Seg Neutrophils % Seg Neuts % (Manual) 31.0 L Lymphocytes % (Manual) Monocytes % (Manual) Eosinophils % (Manual) Basophils % (Manual) Nucleated RBC % Seg Neutrophils # Seg Neutrophils # Man Lymphocytes # (Manual) Monocytes # (Manual) Eosinophils # (Manual) Basophils # (Manual) PT INR Fibrinogen dRVVT Confirm Interp Factor V Activity POC ABG pH POC ABG pCO2 POC ABG pO2 ABG pO2 ABG HCO3 ABG Base Excess ABG Hemoglobin Oxyhemoglobin Sodium Potassium Chloride Carbon Dioxide BUN 61 H Creatinine 1.6 H Glucose 119 H POC Glucose 158 H Lactic Acid Calcium Phosphorus Magnesium Direct Bilirubin AST ALT Alkaline Phosphatase Lactate Dehydrogenase Troponin T C-Reactive Protein Total Protein Albumin Prealbumin Triglycerides Cholesterol LDL Cholesterol Direct HDL Cholesterol Urine pH Urine WBC (Auto) Urine Creatinine Urine Total Protein Fluid Total Protein Vancomycin Trough Rheumatoid Factor Complement C4 Miscellaneous Test Crossmatch 12/03/16 12/03/16 12/03/16 05:02 12:11 18:16 WBC RBC Hgb Hct MCV MCH MCHC RDW Plt Count Lymph % (Auto) [place] % (Auto) Lymph # [place] # Baso # Seg Neutrophils % Seg Neuts % (Manual) Lymphocytes % (Manual) Monocytes % (Manual) Eosinophils % (Manual) Basophils % (Manual) Nucleated RBC % Seg Neutrophils # Seg Neutrophils # Man Lymphocytes # (Manual) Monocytes # (Manual) Eosinophils # (Manual) Basophils # (Manual) PT INR Fibrinogen dRVVT Confirm Interp Factor V Activity POC ABG pH POC ABG pCO2 POC ABG pO2 ABG pO2 ABG HCO3 ABG Base Excess ABG Hemoglobin Oxyhemoglobin Sodium Potassium Chloride Carbon Dioxide BUN Creatinine Glucose POC Glucose 146 H 157 H 124 H Lactic Acid Calcium Phosphorus Magnesium Direct Bilirubin AST ALT Alkaline Phosphatase Lactate Dehydrogenase Troponin T C-Reactive Protein Total Protein Albumin Prealbumin Triglycerides Cholesterol LDL Cholesterol Direct HDL Cholesterol Urine pH Urine WBC (Auto) Urine Creatinine Urine Total Protein Fluid Total Protein Vancomycin Trough Rheumatoid Factor Complement C4 Miscellaneous Test Crossmatch 12/03/16 12/04/16 12/04/16 23:41 04:00 04:45 WBC RBC Hgb Hct MCV MCH MCHC RDW Plt Count Lymph % (Auto) [place] % (Auto) Lymph # [place] # Baso # Seg Neutrophils % Seg Neuts % (Manual) Lymphocytes % (Manual) Monocytes % (Manual) Eosinophils % (Manual) Basophils % (Manual) Nucleated RBC % Seg Neutrophils # Seg Neutrophils # Man Lymphocytes # (Manual) Monocytes # (Manual) Eosinophils # (Manual) Basophils # (Manual) PT INR Fibrinogen dRVVT Confirm Interp Factor V Activity POC ABG pH POC ABG pCO2 POC ABG pO2 ABG pO2 ABG HCO3 ABG Base Excess ABG Hemoglobin Oxyhemoglobin Sodium Potassium Chloride Carbon Dioxide BUN 76 H Creatinine 1.6 H Glucose POC Glucose 130 H 136 H Lactic Acid Calcium Phosphorus Magnesium Direct Bilirubin AST ALT Alkaline Phosphatase 155 H Lactate Dehydrogenase Troponin T C-Reactive Protein Total Protein 5.5 L Albumin 1.5 L Prealbumin Triglycerides Cholesterol LDL Cholesterol Direct HDL Cholesterol Urine pH Urine WBC (Auto) Urine Creatinine Urine Total Protein Fluid Total Protein Vancomycin Trough Rheumatoid Factor Complement C4 Miscellaneous Test Crossmatch 12/04/16 12/04/16 12/05/16 12:08 17:23 00:10 WBC RBC Hgb Hct MCV MCH MCHC RDW Plt Count Lymph % (Auto) [place] % (Auto) Lymph # [place] # Baso # Seg Neutrophils % Seg Neuts % (Manual) Lymphocytes % (Manual) Monocytes % (Manual) Eosinophils % (Manual) Basophils % (Manual) Nucleated RBC % Seg Neutrophils # Seg Neutrophils # Man Lymphocytes # (Manual) Monocytes # (Manual) Eosinophils # (Manual) Basophils # (Manual) PT INR Fibrinogen dRVVT Confirm Interp Factor V Activity POC ABG pH POC ABG pCO2 POC ABG pO2 ABG pO2 ABG HCO3 ABG Base Excess ABG Hemoglobin Oxyhemoglobin Sodium Potassium Chloride Carbon Dioxide BUN Creatinine Glucose POC Glucose 114 H 129 H 124 H Lactic Acid Calcium Phosphorus Magnesium Direct Bilirubin AST ALT Alkaline Phosphatase Lactate Dehydrogenase Troponin T C-Reactive Protein Total Protein Albumin Prealbumin Triglycerides Cholesterol LDL Cholesterol Direct HDL Cholesterol Urine pH Urine WBC (Auto) Urine Creatinine Urine Total Protein Fluid Total Protein Vancomycin Trough Rheumatoid Factor Complement C4 Miscellaneous Test Crossmatch 12/05/16 12/05/16 12/05/16 05:00 05:00 05:18 WBC RBC Hgb Hct MCV MCH MCHC RDW Plt Count Lymph % (Auto) [place] % (Auto) Lymph # [place] # Baso # Seg Neutrophils % Seg Neuts % (Manual) Lymphocytes % (Manual) Monocytes % (Manual) Eosinophils % (Manual) Basophils % (Manual) Nucleated RBC % Seg Neutrophils # Seg Neutrophils # Man Lymphocytes # (Manual) Monocytes # (Manual) Eosinophils # (Manual) Basophils # (Manual) PT INR Fibrinogen dRVVT Confirm Interp Factor V Activity POC ABG pH POC ABG pCO2 POC ABG pO2 ABG pO2 ABG HCO3 ABG Base Excess ABG Hemoglobin Oxyhemoglobin Sodium Potassium Chloride Carbon Dioxide 21 L BUN 85 H Creatinine 1.9 H Glucose 131 H POC Glucose 154 H Lactic Acid Calcium Phosphorus Magnesium Direct Bilirubin AST ALT Alkaline Phosphatase Lactate Dehydrogenase Troponin T C-Reactive Protein 19.30 H Total Protein Albumin Prealbumin Triglycerides Cholesterol LDL Cholesterol Direct HDL Cholesterol Urine pH Urine WBC (Auto) Urine Creatinine Urine Total Protein Fluid Total Protein Vancomycin Trough Rheumatoid Factor Complement C4 Miscellaneous Test Crossmatch 12/05/16 12/05/16 12/05/16 11:43 17:46 23:25 WBC RBC Hgb Hct MCV MCH MCHC RDW Plt Count Lymph % (Auto) [place] % (Auto) Lymph # [place] # Baso # Seg Neutrophils % Seg Neuts % (Manual) Lymphocytes % (Manual) Monocytes % (Manual) Eosinophils % (Manual) Basophils % (Manual) Nucleated RBC % Seg Neutrophils # Seg Neutrophils # Man Lymphocytes # (Manual) Monocytes # (Manual) Eosinophils # (Manual) Basophils # (Manual) PT INR Fibrinogen dRVVT Confirm Interp Factor V Activity POC ABG pH POC ABG pCO2 POC ABG pO2 ABG pO2 ABG HCO3 ABG Base Excess ABG Hemoglobin Oxyhemoglobin Sodium Potassium Chloride Carbon Dioxide BUN Creatinine Glucose POC Glucose 117 H 113 H 111 H Lactic Acid Calcium Phosphorus Magnesium Direct Bilirubin AST ALT Alkaline Phosphatase Lactate Dehydrogenase Troponin T C-Reactive Protein Total Protein Albumin Prealbumin Triglycerides Cholesterol LDL Cholesterol Direct HDL Cholesterol Urine pH Urine WBC (Auto) Urine Creatinine Urine Total Protein Fluid Total Protein Vancomycin Trough Rheumatoid Factor Complement C4 Miscellaneous Test Crossmatch 12/05/16 12/06/16 12/06/16 Unknown 04:58 06:00 WBC RBC Hgb Hct MCV MCH MCHC RDW Plt Count Lymph % (Auto) [place] % (Auto) Lymph # [place] # Baso # Seg Neutrophils % Seg Neuts % (Manual) Lymphocytes % (Manual) Monocytes % (Manual) Eosinophils % (Manual) Basophils % (Manual) Nucleated RBC % Seg Neutrophils # Seg Neutrophils # Man Lymphocytes # (Manual) Monocytes # (Manual) Eosinophils # (Manual) Basophils # (Manual) PT INR Fibrinogen dRVVT Confirm Interp Factor V Activity POC ABG pH POC ABG pCO2 POC ABG pO2 ABG pO2 75.2 L ABG HCO3 ABG Base Excess -3.4 L ABG Hemoglobin 7.4 L Oxyhemoglobin 94.5 L Sodium Potassium Chloride Carbon Dioxide 20 L BUN 99 H Creatinine 2.1 H Glucose 126 H POC Glucose 145 H Lactic Acid Calcium Phosphorus 4.80 H Magnesium Direct Bilirubin AST ALT Alkaline Phosphatase Lactate Dehydrogenase Troponin T C-Reactive Protein Total Protein Albumin Prealbumin Triglycerides Cholesterol LDL Cholesterol Direct HDL Cholesterol Urine pH Urine WBC (Auto) Urine Creatinine Urine Total Protein Fluid Total Protein Vancomycin Trough Rheumatoid Factor Complement C4 Miscellaneous Test Crossmatch 12/06/16 12/06/16 12/06/16 06:46 11:54 17:55 WBC RBC Hgb 8.3 L Hct 26.4 L MCV MCH MCHC RDW Plt Count Lymph % (Auto) [place] % (Auto) Lymph # [place] # Baso # Seg Neutrophils % Seg Neuts % (Manual) Lymphocytes % (Manual) Monocytes % (Manual) Eosinophils % (Manual) Basophils % (Manual) Nucleated RBC % Seg Neutrophils # Seg Neutrophils # Man Lymphocytes # (Manual) Monocytes # (Manual) Eosinophils # (Manual) Basophils # (Manual) PT INR Fibrinogen dRVVT Confirm Interp Factor V Activity POC ABG pH POC ABG pCO2 POC ABG pO2 ABG pO2 ABG HCO3 ABG Base Excess ABG Hemoglobin Oxyhemoglobin Sodium Potassium Chloride Carbon Dioxide BUN Creatinine Glucose POC Glucose 126 H 157 H Lactic Acid Calcium Phosphorus Magnesium Direct Bilirubin AST ALT Alkaline Phosphatase Lactate Dehydrogenase Troponin T C-Reactive Protein Total Protein Albumin Prealbumin Triglycerides Cholesterol LDL Cholesterol Direct HDL Cholesterol Urine pH Urine WBC (Auto) Urine Creatinine Urine Total Protein Fluid Total Protein Vancomycin Trough Rheumatoid Factor Complement C4 Miscellaneous Test Crossmatch 12/06/16 12/07/16 12/07/16 23:59 05:34 06:30 WBC RBC Hgb Hct MCV MCH MCHC RDW Plt Count Lymph % (Auto) [place] % (Auto) Lymph # [place] # Baso # Seg Neutrophils % Seg Neuts % (Manual) Lymphocytes % (Manual) Monocytes % (Manual) Eosinophils % (Manual) Basophils % (Manual) Nucleated RBC % Seg Neutrophils # Seg Neutrophils # Man Lymphocytes # (Manual) Monocytes # (Manual) Eosinophils # (Manual) Basophils # (Manual) PT INR Fibrinogen dRVVT Confirm Interp Factor V Activity POC ABG pH POC ABG pCO2 POC ABG pO2 ABG pO2 ABG HCO3 ABG Base Excess ABG Hemoglobin Oxyhemoglobin Sodium Potassium Chloride Carbon Dioxide BUN 67 H Creatinine 1.4 H Glucose 126 H POC Glucose 129 H 129 H Lactic Acid Calcium Phosphorus Magnesium Direct Bilirubin AST ALT Alkaline Phosphatase Lactate Dehydrogenase Troponin T C-Reactive Protein Total Protein Albumin Prealbumin Triglycerides Cholesterol LDL Cholesterol Direct HDL Cholesterol Urine pH Urine WBC (Auto) Urine Creatinine Urine Total Protein Fluid Total Protein Vancomycin Trough Rheumatoid Factor Complement C4 Miscellaneous Test Crossmatch 12/07/16 12/07/16 12/07/16 06:30 08:00 09:45 WBC 18.8 H RBC 2.52 L Hgb 6.9 L 6.8 L Hct 21.2 L 21.1 L MCV MCH 27 L MCHC RDW 18.0 H Plt Count Lymph % (Auto) [place] % (Auto) 9.9 H Lymph # [place] # 1.9 H Baso # Seg Neutrophils % 71.8 H Seg Neuts % (Manual) Lymphocytes % (Manual) Monocytes % (Manual) Eosinophils % (Manual) Basophils % (Manual) Nucleated RBC % Seg Neutrophils # 13.5 H Seg Neutrophils # Man Lymphocytes # (Manual) Monocytes # (Manual) Eosinophils # (Manual) Basophils # (Manual) PT INR Fibrinogen dRVVT Confirm Interp Factor V Activity POC ABG pH POC ABG pCO2 POC ABG pO2 ABG pO2 ABG HCO3 ABG Base Excess ABG Hemoglobin Oxyhemoglobin Sodium Potassium Chloride Carbon Dioxide BUN Creatinine Glucose POC Glucose Lactic Acid Calcium Phosphorus Magnesium Direct Bilirubin AST ALT Alkaline Phosphatase Lactate Dehydrogenase Troponin T C-Reactive Protein Total Protein Albumin Prealbumin Triglycerides Cholesterol LDL Cholesterol Direct HDL Cholesterol Urine pH Urine WBC (Auto) Urine Creatinine Urine Total Protein Fluid Total Protein Vancomycin Trough Rheumatoid Factor Complement C4 Miscellaneous Test Crossmatch See Detail 12/07/16 12/07/16 12/07/16 11:44 18:19 23:59 WBC RBC Hgb Hct MCV MCH MCHC RDW Plt Count Lymph % (Auto) [place] % (Auto) Lymph # [place] # Baso # Seg Neutrophils % Seg Neuts % (Manual) Lymphocytes % (Manual) Monocytes % (Manual) Eosinophils % (Manual) Basophils % (Manual) Nucleated RBC % Seg Neutrophils # Seg Neutrophils # Man Lymphocytes # (Manual) Monocytes # (Manual) Eosinophils # (Manual) Basophils # (Manual) PT INR Fibrinogen dRVVT Confirm Interp Factor V Activity POC ABG pH POC ABG pCO2 POC ABG pO2 ABG pO2 ABG HCO3 ABG Base Excess ABG Hemoglobin Oxyhemoglobin Sodium Potassium Chloride Carbon Dioxide BUN Creatinine Glucose POC Glucose 137 H 138 H 133 H Lactic Acid Calcium Phosphorus Magnesium Direct Bilirubin AST ALT Alkaline Phosphatase Lactate Dehydrogenase Troponin T C-Reactive Protein Total Protein Albumin Prealbumin Triglycerides Cholesterol LDL Cholesterol Direct HDL Cholesterol Urine pH Urine WBC (Auto) Urine Creatinine Urine Total Protein Fluid Total Protein Vancomycin Trough Rheumatoid Factor Complement C4 Miscellaneous Test Crossmatch 12/08/16 12/08/16 12/08/16 05:25 05:30 05:30 WBC 23.8 H RBC 2.88 L Hgb 8.1 L Hct 24.3 L MCV MCH MCHC RDW 16.7 H Plt Count Lymph % (Auto) [place] % (Auto) Lymph # [place] # Baso # Seg Neutrophils % Seg Neuts % (Manual) 76.0 H Lymphocytes % (Manual) 9.0 L Monocytes % (Manual) 9.0 H Eosinophils % (Manual) Basophils % (Manual) Nucleated RBC % Seg Neutrophils # Seg Neutrophils # Man 18.1 H Lymphocytes # (Manual) Monocytes # (Manual) 2.1 H Eosinophils # (Manual) Basophils # (Manual) PT INR Fibrinogen dRVVT Confirm Interp Factor V Activity POC ABG pH POC ABG pCO2 POC ABG pO2 ABG pO2 ABG HCO3 ABG Base Excess ABG Hemoglobin Oxyhemoglobin Sodium Potassium Chloride Carbon Dioxide 21 L BUN 76 H Creatinine 1.6 H Glucose 133 H POC Glucose 177 H Lactic Acid Calcium Phosphorus Magnesium Direct Bilirubin AST ALT Alkaline Phosphatase Lactate Dehydrogenase Troponin T C-Reactive Protein Total Protein Albumin Prealbumin Triglycerides Cholesterol LDL Cholesterol Direct HDL Cholesterol Urine pH Urine WBC (Auto) Urine Creatinine Urine Total Protein Fluid Total Protein Vancomycin Trough Rheumatoid Factor Complement C4 Miscellaneous Test Crossmatch 12/08/16 12/08/16 12/09/16 11:45 18:00 00:00 WBC RBC Hgb Hct MCV MCH MCHC RDW Plt Count Lymph % (Auto) [place] % (Auto) Lymph # [place] # Baso # Seg Neutrophils % Seg Neuts % (Manual) Lymphocytes % (Manual) Monocytes % (Manual) Eosinophils % (Manual) Basophils % (Manual) Nucleated RBC % Seg Neutrophils # Seg Neutrophils # Man Lymphocytes # (Manual) Monocytes # (Manual) Eosinophils # (Manual) Basophils # (Manual) PT INR Fibrinogen dRVVT Confirm Interp Factor V Activity POC ABG pH POC ABG pCO2 POC ABG pO2 ABG pO2 ABG HCO3 ABG Base Excess ABG Hemoglobin Oxyhemoglobin Sodium Potassium Chloride Carbon Dioxide BUN Creatinine Glucose POC Glucose 163 H 123 H 137 H Lactic Acid Calcium Phosphorus Magnesium Direct Bilirubin AST ALT Alkaline Phosphatase Lactate Dehydrogenase Troponin T C-Reactive Protein Total Protein Albumin Prealbumin Triglycerides Cholesterol LDL Cholesterol Direct HDL Cholesterol Urine pH Urine WBC (Auto) Urine Creatinine Urine Total Protein Fluid Total Protein Vancomycin Trough Rheumatoid Factor Complement C4 Miscellaneous Test Crossmatch 12/09/16 12/09/16 12/09/16 05:34 06:00 06:00 WBC 15.5 H RBC 2.87 L Hgb 8.0 L Hct 24.2 L MCV MCH MCHC RDW 17.2 H Plt Count Lymph % (Auto) [place] % (Auto) 11.6 H Lymph # [place] # 1.8 H Baso # Seg Neutrophils % 70.8 H Seg Neuts % (Manual) Lymphocytes % (Manual) Monocytes % (Manual) Eosinophils % (Manual) Basophils % (Manual) Nucleated RBC % Seg Neutrophils # 11.0 H Seg Neutrophils # Man Lymphocytes # (Manual) Monocytes # (Manual) Eosinophils # (Manual) Basophils # (Manual) PT INR Fibrinogen dRVVT Confirm Interp Factor V Activity POC ABG pH POC ABG pCO2 POC ABG pO2 ABG pO2 ABG HCO3 ABG Base Excess ABG Hemoglobin Oxyhemoglobin Sodium Potassium Chloride Carbon Dioxide BUN 51 H Creatinine Glucose 117 H POC Glucose 136 H Lactic Acid Calcium Phosphorus Magnesium Direct Bilirubin AST ALT Alkaline Phosphatase Lactate Dehydrogenase Troponin T C-Reactive Protein Total Protein Albumin Prealbumin Triglycerides Cholesterol LDL Cholesterol Direct HDL Cholesterol Urine pH Urine WBC (Auto) Urine Creatinine Urine Total Protein Fluid Total Protein Vancomycin Trough Rheumatoid Factor Complement C4 Miscellaneous Test Crossmatch 12/09/16 12/09/16 12/09/16 12:29 17:52 23:10 WBC RBC Hgb Hct MCV MCH MCHC RDW Plt Count Lymph % (Auto) [place] % (Auto) Lymph # [place] # Baso # Seg Neutrophils % Seg Neuts % (Manual) Lymphocytes % (Manual) Monocytes % (Manual) Eosinophils % (Manual) Basophils % (Manual) Nucleated RBC % Seg Neutrophils # Seg Neutrophils # Man Lymphocytes # (Manual) Monocytes # (Manual) Eosinophils # (Manual) Basophils # (Manual) PT INR Fibrinogen dRVVT Confirm Interp Factor V Activity POC ABG pH POC ABG pCO2 POC ABG pO2 ABG pO2 ABG HCO3 ABG Base Excess ABG Hemoglobin Oxyhemoglobin Sodium Potassium Chloride Carbon Dioxide BUN Creatinine Glucose POC Glucose 139 H 140 H 129 H Lactic Acid Calcium Phosphorus Magnesium Direct Bilirubin AST ALT Alkaline Phosphatase Lactate Dehydrogenase Troponin T C-Reactive Protein Total Protein Albumin Prealbumin Triglycerides Cholesterol LDL Cholesterol Direct HDL Cholesterol Urine pH Urine WBC (Auto) Urine Creatinine Urine Total Protein Fluid Total Protein Vancomycin Trough Rheumatoid Factor Complement C4 Miscellaneous Test Crossmatch 12/10/16 12/10/16 12/10/16 05:00 05:00 06:54 WBC 15.7 H RBC 2.87 L Hgb 8.2 L Hct 24.4 L MCV MCH MCHC RDW 17.2 H Plt Count Lymph % (Auto) [place] % (Auto) 8.3 H Lymph # [place] # 1.3 H Baso # Seg Neutrophils % 72.8 H Seg Neuts % (Manual) Lymphocytes % (Manual) Monocytes % (Manual) Eosinophils % (Manual) Basophils % (Manual) Nucleated RBC % Seg Neutrophils # 11.4 H Seg Neutrophils # Man Lymphocytes # (Manual) Monocytes # (Manual) Eosinophils # (Manual) Basophils # (Manual) PT INR Fibrinogen dRVVT Confirm Interp Factor V Activity POC ABG pH POC ABG pCO2 POC ABG pO2 ABG pO2 ABG HCO3 ABG Base Excess ABG Hemoglobin Oxyhemoglobin Sodium Potassium Chloride Carbon Dioxide BUN 64 H Creatinine 1.4 H Glucose 134 H POC Glucose 154 H Lactic Acid Calcium Phosphorus Magnesium Direct Bilirubin AST ALT Alkaline Phosphatase Lactate Dehydrogenase Troponin T C-Reactive Protein Total Protein Albumin Prealbumin Triglycerides Cholesterol LDL Cholesterol Direct HDL Cholesterol Urine pH Urine WBC (Auto) Urine Creatinine Urine Total Protein Fluid Total Protein Vancomycin Trough Rheumatoid Factor Complement C4 Miscellaneous Test Crossmatch 12/10/16 12/10/16 12/10/16 11:58 17:29 23:52 WBC RBC Hgb Hct MCV MCH MCHC RDW Plt Count Lymph % (Auto) [place] % (Auto) Lymph # [place] # Baso # Seg Neutrophils % Seg Neuts % (Manual) Lymphocytes % (Manual) Monocytes % (Manual) Eosinophils % (Manual) Basophils % (Manual) Nucleated RBC % Seg Neutrophils # Seg Neutrophils # Man Lymphocytes # (Manual) Monocytes # (Manual) Eosinophils # (Manual) Basophils # (Manual) PT INR Fibrinogen dRVVT Confirm Interp Factor V Activity POC ABG pH POC ABG pCO2 POC ABG pO2 ABG pO2 ABG HCO3 ABG Base Excess ABG Hemoglobin Oxyhemoglobin Sodium Potassium Chloride Carbon Dioxide BUN Creatinine Glucose POC Glucose 144 H 163 H 125 H Lactic Acid Calcium Phosphorus Magnesium Direct Bilirubin AST ALT Alkaline Phosphatase Lactate Dehydrogenase Troponin T C-Reactive Protein Total Protein Albumin Prealbumin Triglycerides Cholesterol LDL Cholesterol Direct HDL Cholesterol Urine pH Urine WBC (Auto) Urine Creatinine Urine Total Protein Fluid Total Protein Vancomycin Trough Rheumatoid Factor Complement C4 Miscellaneous Test Crossmatch 12/11/16 12/11/16 12/11/16 05:38 06:30 06:30 WBC 14.4 H RBC 2.76 L Hgb 7.7 L Hct 23.4 L MCV MCH MCHC RDW 17.2 H Plt Count Lymph % (Auto) [place] % (Auto) 8.8 H Lymph # [place] # 1.3 H Baso # Seg Neutrophils % 72.5 H Seg Neuts % (Manual) Lymphocytes % (Manual) Monocytes % (Manual) Eosinophils % (Manual) Basophils % (Manual) Nucleated RBC % Seg Neutrophils # 10.5 H Seg Neutrophils # Man Lymphocytes # (Manual) Monocytes # (Manual) Eosinophils # (Manual) Basophils # (Manual) PT INR Fibrinogen dRVVT Confirm Interp Factor V Activity POC ABG pH POC ABG pCO2 POC ABG pO2 ABG pO2 ABG HCO3 ABG Base Excess ABG Hemoglobin Oxyhemoglobin Sodium Potassium Chloride Carbon Dioxide BUN 43 H Creatinine Glucose 124 H POC Glucose 141 H Lactic Acid Calcium 8.3 L Phosphorus Magnesium 1.60 L Direct Bilirubin AST ALT Alkaline Phosphatase Lactate Dehydrogenase Troponin T C-Reactive Protein Total Protein Albumin Prealbumin Triglycerides Cholesterol LDL Cholesterol Direct HDL Cholesterol Urine pH Urine WBC (Auto) Urine Creatinine Urine Total Protein Fluid Total Protein Vancomycin Trough Rheumatoid Factor Complement C4 Miscellaneous Test Crossmatch 12/11/16 12/11/16 12/11/16 11:15 17:59 23:48 WBC RBC Hgb Hct MCV MCH MCHC RDW Plt Count Lymph % (Auto) [place] % (Auto) Lymph # [place] # Baso # Seg Neutrophils % Seg Neuts % (Manual) Lymphocytes % (Manual) Monocytes % (Manual) Eosinophils % (Manual) Basophils % (Manual) Nucleated RBC % Seg Neutrophils # Seg Neutrophils # Man Lymphocytes # (Manual) Monocytes # (Manual) Eosinophils # (Manual) Basophils # (Manual) PT INR Fibrinogen dRVVT Confirm Interp Factor V Activity POC ABG pH POC ABG pCO2 POC ABG pO2 ABG pO2 ABG HCO3 ABG Base Excess ABG Hemoglobin Oxyhemoglobin Sodium Potassium Chloride Carbon Dioxide BUN Creatinine Glucose POC Glucose 188 H 106 H 119 H Lactic Acid Calcium Phosphorus Magnesium Direct Bilirubin AST ALT Alkaline Phosphatase Lactate Dehydrogenase Troponin T C-Reactive Protein Total Protein Albumin Prealbumin Triglycerides Cholesterol LDL Cholesterol Direct HDL Cholesterol Urine pH Urine WBC (Auto) Urine Creatinine Urine Total Protein Fluid Total Protein Vancomycin Trough Rheumatoid Factor Complement C4 Miscellaneous Test Crossmatch 12/12/16 12/12/16 12/12/16 05:00 06:01 12:20 WBC 16.7 H RBC 2.87 L Hgb 8.0 L Hct 24.2 L MCV MCH MCHC RDW 17.6 H Plt Count Lymph % (Auto) [place] % (Auto) Lymph # [place] # 1.2 H Baso # Seg Neutrophils % 75.3 H Seg Neuts % (Manual) Lymphocytes % (Manual) Monocytes % (Manual) Eosinophils % (Manual) Basophils % (Manual) Nucleated RBC % Seg Neutrophils # 12.6 H Seg Neutrophils # Man Lymphocytes # (Manual) Monocytes # (Manual) Eosinophils # (Manual) Basophils # (Manual) PT INR Fibrinogen dRVVT Confirm Interp Factor V Activity POC ABG pH POC ABG pCO2 POC ABG pO2 ABG pO2 ABG HCO3 ABG Base Excess ABG Hemoglobin Oxyhemoglobin Sodium Potassium Chloride Carbon Dioxide BUN Creatinine Glucose POC Glucose 134 H 149 H Lactic Acid Calcium Phosphorus Magnesium Direct Bilirubin AST ALT Alkaline Phosphatase Lactate Dehydrogenase Troponin T C-Reactive Protein Total Protein Albumin Prealbumin Triglycerides Cholesterol LDL Cholesterol Direct HDL Cholesterol Urine pH Urine WBC (Auto) Urine Creatinine Urine Total Protein Fluid Total Protein Vancomycin Trough Rheumatoid Factor Complement C4 Miscellaneous Test Crossmatch 12/12/16 12/12/16 12/12/16 17:38 23:01 Unknown WBC RBC Hgb Hct MCV MCH MCHC RDW Plt Count Lymph % (Auto) [place] % (Auto) Lymph # [place] # Baso # Seg Neutrophils % Seg Neuts % (Manual) Lymphocytes % (Manual) Monocytes % (Manual) Eosinophils % (Manual) Basophils % (Manual) Nucleated RBC % Seg Neutrophils # Seg Neutrophils # Man Lymphocytes # (Manual) Monocytes # (Manual) Eosinophils # (Manual) Basophils # (Manual) PT INR Fibrinogen dRVVT Confirm Interp Factor V Activity POC ABG pH POC ABG pCO2 POC ABG pO2 ABG pO2 ABG HCO3 ABG Base Excess ABG Hemoglobin Oxyhemoglobin Sodium Potassium Chloride Carbon Dioxide BUN 60 H Creatinine 1.3 H Glucose 126 H POC Glucose 127 H 144 H Lactic Acid Calcium Phosphorus Magnesium Direct Bilirubin AST ALT Alkaline Phosphatase Lactate Dehydrogenase Troponin T C-Reactive Protein Total Protein Albumin Prealbumin Triglycerides Cholesterol LDL Cholesterol Direct HDL Cholesterol Urine pH Urine WBC (Auto) Urine Creatinine Urine Total Protein Fluid Total Protein Vancomycin Trough Rheumatoid Factor Complement C4 Miscellaneous Test Crossmatch 12/13/16 12/13/16 12/13/16 04:00 04:00 05:19 WBC 18.7 H RBC 2.89 L Hgb 8.3 L Hct 24.6 L MCV MCH MCHC RDW 17.5 H Plt Count Lymph % (Auto) [place] % (Auto) Lymph # [place] # 1.3 H Baso # Seg Neutrophils % 71.5 H Seg Neuts % (Manual) Lymphocytes % (Manual) Monocytes % (Manual) Eosinophils % (Manual) Basophils % (Manual) Nucleated RBC % Seg Neutrophils # 13.4 H Seg Neutrophils # Man Lymphocytes # (Manual) Monocytes # (Manual) Eosinophils # (Manual) Basophils # (Manual) PT INR Fibrinogen dRVVT Confirm Interp Factor V Activity POC ABG pH POC ABG pCO2 POC ABG pO2 ABG pO2 ABG HCO3 ABG Base Excess ABG Hemoglobin Oxyhemoglobin Sodium Potassium Chloride Carbon Dioxide BUN 73 H Creatinine 1.5 H Glucose 141 H POC Glucose 171 H Lactic Acid Calcium Phosphorus Magnesium Direct Bilirubin AST ALT Alkaline Phosphatase Lactate Dehydrogenase Troponin T C-Reactive Protein Total Protein Albumin Prealbumin Triglycerides Cholesterol LDL Cholesterol Direct HDL Cholesterol Urine pH Urine WBC (Auto) Urine Creatinine Urine Total Protein Fluid Total Protein Vancomycin Trough Rheumatoid Factor Complement C4 Miscellaneous Test Crossmatch 12/13/16 12/13/16 12/14/16 12:28 16:48 00:01 WBC RBC Hgb Hct MCV MCH MCHC RDW Plt Count Lymph % (Auto) [place] % (Auto) Lymph # [place] # Baso # Seg Neutrophils % Seg Neuts % (Manual) Lymphocytes % (Manual) Monocytes % (Manual) Eosinophils % (Manual) Basophils % (Manual) Nucleated RBC % Seg Neutrophils # Seg Neutrophils # Man Lymphocytes # (Manual) Monocytes # (Manual) Eosinophils # (Manual) Basophils # (Manual) PT INR Fibrinogen dRVVT Confirm Interp Factor V Activity POC ABG pH POC ABG pCO2 POC ABG pO2 ABG pO2 ABG HCO3 ABG Base Excess ABG Hemoglobin Oxyhemoglobin Sodium Potassium Chloride Carbon Dioxide BUN Creatinine Glucose POC Glucose 206 H 173 H 139 H Lactic Acid Calcium Phosphorus Magnesium Direct Bilirubin AST ALT Alkaline Phosphatase Lactate Dehydrogenase Troponin T C-Reactive Protein Total Protein Albumin Prealbumin Triglycerides Cholesterol LDL Cholesterol Direct HDL Cholesterol Urine pH Urine WBC (Auto) Urine Creatinine Urine Total Protein Fluid Total Protein Vancomycin Trough Rheumatoid Factor Complement C4 Miscellaneous Test Crossmatch 12/14/16 12/14/16 12/14/16 05:16 06:10 11:17 WBC RBC Hgb Hct MCV MCH MCHC RDW Plt Count Lymph % (Auto) [place] % (Auto) Lymph # [place] # Baso # Seg Neutrophils % Seg Neuts % (Manual) Lymphocytes % (Manual) Monocytes % (Manual) Eosinophils % (Manual) Basophils % (Manual) Nucleated RBC % Seg Neutrophils # Seg Neutrophils # Man Lymphocytes # (Manual) Monocytes # (Manual) Eosinophils # (Manual) Basophils # (Manual) PT INR Fibrinogen dRVVT Confirm Interp Factor V Activity POC ABG pH POC ABG pCO2 POC ABG pO2 ABG pO2 ABG HCO3 ABG Base Excess ABG Hemoglobin Oxyhemoglobin Sodium Potassium Chloride Carbon Dioxide BUN 57 H Creatinine 1.4 H Glucose 135 H POC Glucose 158 H 137 H Lactic Acid Calcium Phosphorus Magnesium Direct Bilirubin AST ALT Alkaline Phosphatase Lactate Dehydrogenase Troponin T C-Reactive Protein Total Protein Albumin Prealbumin Triglycerides Cholesterol LDL Cholesterol Direct HDL Cholesterol Urine pH Urine WBC (Auto) Urine Creatinine Urine Total Protein Fluid Total Protein Vancomycin Trough Rheumatoid Factor Complement C4 Miscellaneous Test Crossmatch 12/14/16 12/14/16 12/15/16 17:52 23:27 04:00 WBC RBC Hgb Hct MCV MCH MCHC RDW Plt Count Lymph % (Auto) [place] % (Auto) Lymph # [place] # Baso # Seg Neutrophils % Seg Neuts % (Manual) Lymphocytes % (Manual) Monocytes % (Manual) Eosinophils % (Manual) Basophils % (Manual) Nucleated RBC % Seg Neutrophils # Seg Neutrophils # Man Lymphocytes # (Manual) Monocytes # (Manual) Eosinophils # (Manual) Basophils # (Manual) PT INR Fibrinogen dRVVT Confirm Interp Factor V Activity POC ABG pH POC ABG pCO2 POC ABG pO2 ABG pO2 ABG HCO3 ABG Base Excess ABG Hemoglobin Oxyhemoglobin Sodium Potassium Chloride 97.9 L Carbon Dioxide BUN 75 H Creatinine 1.6 H Glucose 122 H POC Glucose 149 H 163 H Lactic Acid Calcium Phosphorus 5.20 H Magnesium Direct Bilirubin AST ALT Alkaline Phosphatase Lactate Dehydrogenase Troponin T C-Reactive Protein Total Protein Albumin Prealbumin Triglycerides Cholesterol LDL Cholesterol Direct HDL Cholesterol Urine pH Urine WBC (Auto) Urine Creatinine Urine Total Protein Fluid Total Protein Vancomycin Trough Rheumatoid Factor Complement C4 Miscellaneous Test Crossmatch 12/15/16 12/15/16 12/15/16 05:50 11:24 17:01 WBC RBC Hgb Hct MCV MCH MCHC RDW Plt Count Lymph % (Auto) [place] % (Auto) Lymph # [place] # Baso # Seg Neutrophils % Seg Neuts % (Manual) Lymphocytes % (Manual) Monocytes % (Manual) Eosinophils % (Manual) Basophils % (Manual) Nucleated RBC % Seg Neutrophils # Seg Neutrophils # Man Lymphocytes # (Manual) Monocytes # (Manual) Eosinophils # (Manual) Basophils # (Manual) PT INR Fibrinogen dRVVT Confirm Interp Factor V Activity POC ABG pH POC ABG pCO2 POC ABG pO2 ABG pO2 ABG HCO3 ABG Base Excess ABG Hemoglobin Oxyhemoglobin Sodium Potassium Chloride Carbon Dioxide BUN Creatinine Glucose POC Glucose 150 H 146 H 167 H Lactic Acid Calcium Phosphorus Magnesium Direct Bilirubin AST ALT Alkaline Phosphatase Lactate Dehydrogenase Troponin T C-Reactive Protein Total Protein Albumin Prealbumin Triglycerides Cholesterol LDL Cholesterol Direct HDL Cholesterol Urine pH Urine WBC (Auto) Urine Creatinine Urine Total Protein Fluid Total Protein Vancomycin Trough Rheumatoid Factor Complement C4 Miscellaneous Test Crossmatch 12/15/16 12/16/16 12/16/16 23:34 05:25 11:24 WBC RBC Hgb Hct MCV MCH MCHC RDW Plt Count Lymph % (Auto) [place] % (Auto) Lymph # [place] # Baso # Seg Neutrophils % Seg Neuts % (Manual) Lymphocytes % (Manual) Monocytes % (Manual) Eosinophils % (Manual) Basophils % (Manual) Nucleated RBC % Seg Neutrophils # Seg Neutrophils # Man Lymphocytes # (Manual) Monocytes # (Manual) Eosinophils # (Manual) Basophils # (Manual) PT INR Fibrinogen dRVVT Confirm Interp Factor V Activity POC ABG pH POC ABG pCO2 POC ABG pO2 ABG pO2 ABG HCO3 ABG Base Excess ABG Hemoglobin Oxyhemoglobin Sodium Potassium Chloride Carbon Dioxide BUN Creatinine Glucose POC Glucose 127 H 139 H 165 H Lactic Acid Calcium Phosphorus Magnesium Direct Bilirubin AST ALT Alkaline Phosphatase Lactate Dehydrogenase Troponin T C-Reactive Protein Total Protein Albumin Prealbumin Triglycerides Cholesterol LDL Cholesterol Direct HDL Cholesterol Urine pH Urine WBC (Auto) Urine Creatinine Urine Total Protein Fluid Total Protein Vancomycin Trough Rheumatoid Factor Complement C4 Miscellaneous Test Crossmatch 12/16/16 12/16/16 12/16/16 15:30 16:25 17:31 WBC 17.8 H RBC 2.38 L Hgb 6.4 L Hct 20.3 L MCV MCH 27 L MCHC RDW 17.4 H Plt Count Lymph % (Auto) [place] % (Auto) Lymph # [place] # Baso # Seg Neutrophils % Seg Neuts % (Manual) Lymphocytes % (Manual) Monocytes % (Manual) 10.0 H Eosinophils % (Manual) Basophils % (Manual) Nucleated RBC % Seg Neutrophils # Seg Neutrophils # Man 8.5 H Lymphocytes # (Manual) Monocytes # (Manual) 1.8 H Eosinophils # (Manual) Basophils # (Manual) PT INR Fibrinogen dRVVT Confirm Interp Factor V Activity POC ABG pH POC ABG pCO2 POC ABG pO2 ABG pO2 ABG HCO3 ABG Base Excess ABG Hemoglobin Oxyhemoglobin Sodium Potassium Chloride Carbon Dioxide BUN Creatinine Glucose POC Glucose 176 H Lactic Acid Calcium Phosphorus Magnesium Direct Bilirubin AST ALT Alkaline Phosphatase Lactate Dehydrogenase Troponin T C-Reactive Protein Total Protein Albumin Prealbumin Triglycerides Cholesterol LDL Cholesterol Direct HDL Cholesterol Urine pH Urine WBC (Auto) Urine Creatinine Urine Total Protein Fluid Total Protein Vancomycin Trough Rheumatoid Factor Complement C4 Miscellaneous Test Crossmatch See Detail 12/17/16 12/17/16 12/17/16 00:14 04:00 05:00 WBC 20.0 H RBC 2.99 L Hgb 8.5 L Hct 25.7 L MCV MCH MCHC RDW 17.2 H Plt Count Lymph % (Auto) [place] % (Auto) Lymph # [place] # Baso # Seg Neutrophils % Seg Neuts % (Manual) Lymphocytes % (Manual) Monocytes % (Manual) Eosinophils % (Manual) Basophils % (Manual) Nucleated RBC % Seg Neutrophils # Seg Neutrophils # Man Lymphocytes # (Manual) Monocytes # (Manual) Eosinophils # (Manual) Basophils # (Manual) PT INR Fibrinogen dRVVT Confirm Interp Factor V Activity POC ABG pH POC ABG pCO2 POC ABG pO2 ABG pO2 ABG HCO3 ABG Base Excess ABG Hemoglobin Oxyhemoglobin Sodium Potassium Chloride 97.7 L Carbon Dioxide BUN 73 H Creatinine 1.7 H Glucose 136 H POC Glucose 148 H Lactic Acid Calcium Phosphorus 2.20 L Magnesium 2.70 H Direct Bilirubin AST ALT Alkaline Phosphatase Lactate Dehydrogenase Troponin T C-Reactive Protein Total Protein Albumin Prealbumin Triglycerides Cholesterol LDL Cholesterol Direct HDL Cholesterol Urine pH Urine WBC (Auto) Urine Creatinine Urine Total Protein Fluid Total Protein Vancomycin Trough Rheumatoid Factor Complement C4 Miscellaneous Test Crossmatch 12/17/16 12/17/16 12/17/16 05:39 12:50 16:32 WBC RBC Hgb Hct MCV MCH MCHC RDW Plt Count Lymph % (Auto) [place] % (Auto) Lymph # [place] # Baso # Seg Neutrophils % Seg Neuts % (Manual) Lymphocytes % (Manual) Monocytes % (Manual) Eosinophils % (Manual) Basophils % (Manual) Nucleated RBC % Seg Neutrophils # Seg Neutrophils # Man Lymphocytes # (Manual) Monocytes # (Manual) Eosinophils # (Manual) Basophils # (Manual) PT INR Fibrinogen dRVVT Confirm Interp Factor V Activity POC ABG pH POC ABG pCO2 POC ABG pO2 ABG pO2 ABG HCO3 ABG Base Excess ABG Hemoglobin Oxyhemoglobin Sodium Potassium Chloride Carbon Dioxide BUN Creatinine Glucose POC Glucose 162 H 146 H 169 H Lactic Acid Calcium Phosphorus Magnesium Direct Bilirubin AST ALT Alkaline Phosphatase Lactate Dehydrogenase Troponin T C-Reactive Protein Total Protein Albumin Prealbumin Triglycerides Cholesterol LDL Cholesterol Direct HDL Cholesterol Urine pH Urine WBC (Auto) Urine Creatinine Urine Total Protein Fluid Total Protein Vancomycin Trough Rheumatoid Factor Complement C4 Miscellaneous Test Crossmatch 12/17/16 12/18/16 12/18/16 23:57 05:00 05:32 WBC RBC Hgb Hct MCV MCH MCHC RDW Plt Count Lymph % (Auto) [place] % (Auto) Lymph # [place] # Baso # Seg Neutrophils % Seg Neuts % (Manual) Lymphocytes % (Manual) Monocytes % (Manual) Eosinophils % (Manual) Basophils % (Manual) Nucleated RBC % Seg Neutrophils # Seg Neutrophils # Man Lymphocytes # (Manual) Monocytes # (Manual) Eosinophils # (Manual) Basophils # (Manual) PT INR Fibrinogen dRVVT Confirm Interp Factor V Activity POC ABG pH POC ABG pCO2 POC ABG pO2 ABG pO2 ABG HCO3 ABG Base Excess ABG Hemoglobin Oxyhemoglobin Sodium Potassium Chloride 97.0 L Carbon Dioxide BUN 63 H Creatinine 1.4 H Glucose 174 H POC Glucose 145 H 201 H Lactic Acid Calcium Phosphorus 1.70 L D Magnesium Direct Bilirubin AST ALT Alkaline Phosphatase 257 H Lactate Dehydrogenase Troponin T C-Reactive Protein Total Protein 5.9 L Albumin 1.8 L Prealbumin Triglycerides Cholesterol LDL Cholesterol Direct HDL Cholesterol Urine pH Urine WBC (Auto) Urine Creatinine Urine Total Protein Fluid Total Protein Vancomycin Trough Rheumatoid Factor Complement C4 Miscellaneous Test Crossmatch 12/18/16 12/18/16 12/18/16 11:43 16:52 23:52 WBC RBC Hgb Hct MCV MCH MCHC RDW Plt Count Lymph % (Auto) [place] % (Auto) Lymph # [place] # Baso # Seg Neutrophils % Seg Neuts % (Manual) Lymphocytes % (Manual) Monocytes % (Manual) Eosinophils % (Manual) Basophils % (Manual) Nucleated RBC % Seg Neutrophils # Seg Neutrophils # Man Lymphocytes # (Manual) Monocytes # (Manual) Eosinophils # (Manual) Basophils # (Manual) PT INR Fibrinogen dRVVT Confirm Interp Factor V Activity POC ABG pH POC ABG pCO2 POC ABG pO2 ABG pO2 ABG HCO3 ABG Base Excess ABG Hemoglobin Oxyhemoglobin Sodium Potassium Chloride Carbon Dioxide BUN Creatinine Glucose POC Glucose 177 H 110 H 162 H Lactic Acid Calcium Phosphorus Magnesium Direct Bilirubin AST ALT Alkaline Phosphatase Lactate Dehydrogenase Troponin T C-Reactive Protein Total Protein Albumin Prealbumin Triglycerides Cholesterol LDL Cholesterol Direct HDL Cholesterol Urine pH Urine WBC (Auto) Urine Creatinine Urine Total Protein Fluid Total Protein Vancomycin Trough Rheumatoid Factor Complement C4 Miscellaneous Test Crossmatch 12/19/16 12/19/16 12/19/16 05:02 05:24 09:30 WBC 20.1 H RBC 2.73 L Hgb 7.6 L Hct 23.6 L MCV MCH MCHC RDW 17.6 H Plt Count Lymph % (Auto) [place] % (Auto) Lymph # [place] # Baso # Seg Neutrophils % Seg Neuts % (Manual) Lymphocytes % (Manual) 13.0 L Monocytes % (Manual) Eosinophils % (Manual) Basophils % (Manual) Nucleated RBC % 1.0 H Seg Neutrophils # Seg Neutrophils # Man 12.9 H Lymphocytes # (Manual) Monocytes # (Manual) 1.4 H Eosinophils # (Manual) Basophils # (Manual) 0.2 H PT INR Fibrinogen dRVVT Confirm Interp Factor V Activity POC ABG pH POC ABG pCO2 POC ABG pO2 ABG pO2 ABG HCO3 ABG Base Excess ABG Hemoglobin Oxyhemoglobin Sodium Potassium Chloride 97.8 L Carbon Dioxide BUN 84 H Creatinine 1.6 H Glucose 133 H POC Glucose 134 H Lactic Acid Calcium Phosphorus Magnesium Direct Bilirubin AST ALT Alkaline Phosphatase Lactate Dehydrogenase Troponin T C-Reactive Protein Total Protein Albumin Prealbumin Triglycerides Cholesterol LDL Cholesterol Direct HDL Cholesterol Urine pH Urine WBC (Auto) Urine Creatinine Urine Total Protein Fluid Total Protein Vancomycin Trough Rheumatoid Factor Complement C4 Miscellaneous Test Crossmatch 12/19/16 12/19/16 12/19/16 09:36 11:12 18:29 WBC RBC Hgb Hct MCV MCH MCHC RDW Plt Count Lymph % (Auto) [place] % (Auto) Lymph # [place] # Baso # Seg Neutrophils % Seg Neuts % (Manual) Lymphocytes % (Manual) Monocytes % (Manual) Eosinophils % (Manual) Basophils % (Manual) Nucleated RBC % Seg Neutrophils # Seg Neutrophils # Man Lymphocytes # (Manual) Monocytes # (Manual) Eosinophils # (Manual) Basophils # (Manual) PT INR Fibrinogen dRVVT Confirm Interp Factor V Activity POC ABG pH 7.503 H POC ABG pCO2 30.1 L POC ABG pO2 ABG pO2 ABG HCO3 ABG Base Excess ABG Hemoglobin Oxyhemoglobin Sodium Potassium Chloride Carbon Dioxide BUN Creatinine Glucose POC Glucose 138 H 156 H Lactic Acid Calcium Phosphorus Magnesium Direct Bilirubin AST ALT Alkaline Phosphatase Lactate Dehydrogenase Troponin T C-Reactive Protein Total Protein Albumin Prealbumin Triglycerides Cholesterol LDL Cholesterol Direct HDL Cholesterol Urine pH Urine WBC (Auto) Urine Creatinine Urine Total Protein Fluid Total Protein Vancomycin Trough Rheumatoid Factor Complement C4 Miscellaneous Test Crossmatch 12/20/16 12/20/16 12/20/16 00:03 06:17 07:07 WBC RBC Hgb Hct MCV MCH MCHC RDW Plt Count Lymph % (Auto) [place] % (Auto) Lymph # [place] # Baso # Seg Neutrophils % Seg Neuts % (Manual) Lymphocytes % (Manual) Monocytes % (Manual) Eosinophils % (Manual) Basophils % (Manual) Nucleated RBC % Seg Neutrophils # Seg Neutrophils # Man Lymphocytes # (Manual) Monocytes # (Manual) Eosinophils # (Manual) Basophils # (Manual) PT INR Fibrinogen dRVVT Confirm Interp Factor V Activity POC ABG pH POC ABG pCO2 POC ABG pO2 ABG pO2 ABG HCO3 ABG Base Excess ABG Hemoglobin Oxyhemoglobin Sodium Potassium Chloride 97.1 L Carbon Dioxide 20 L BUN 97 H Creatinine 1.8 H Glucose 153 H POC Glucose 152 H 175 H Lactic Acid Calcium Phosphorus Magnesium Direct Bilirubin AST ALT Alkaline Phosphatase Lactate Dehydrogenase Troponin T C-Reactive Protein Total Protein Albumin Prealbumin Triglycerides Cholesterol LDL Cholesterol Direct HDL Cholesterol Urine pH Urine WBC (Auto) Urine Creatinine Urine Total Protein Fluid Total Protein Vancomycin Trough Rheumatoid Factor Complement C4 Miscellaneous Test Crossmatch 12/20/16 12/20/16 12/20/16 12:00 17:42 23:53 WBC RBC Hgb Hct MCV MCH MCHC RDW Plt Count Lymph % (Auto) [place] % (Auto) Lymph # [place] # Baso # Seg Neutrophils % Seg Neuts % (Manual) Lymphocytes % (Manual) Monocytes % (Manual) Eosinophils % (Manual) Basophils % (Manual) Nucleated RBC % Seg Neutrophils # Seg Neutrophils # Man Lymphocytes # (Manual) Monocytes # (Manual) Eosinophils # (Manual) Basophils # (Manual) PT INR Fibrinogen dRVVT Confirm Interp Factor V Activity POC ABG pH POC ABG pCO2 POC ABG pO2 ABG pO2 ABG HCO3 ABG Base Excess ABG Hemoglobin Oxyhemoglobin Sodium Potassium Chloride Carbon Dioxide BUN Creatinine Glucose POC Glucose 141 H 156 H 132 H Lactic Acid Calcium Phosphorus Magnesium Direct Bilirubin AST ALT Alkaline Phosphatase Lactate Dehydrogenase Troponin T C-Reactive Protein Total Protein Albumin Prealbumin Triglycerides Cholesterol LDL Cholesterol Direct HDL Cholesterol Urine pH Urine WBC (Auto) Urine Creatinine Urine Total Protein Fluid Total Protein Vancomycin Trough Rheumatoid Factor Complement C4 Miscellaneous Test Crossmatch 12/21/16 12/21/16 12/21/16 05:49 08:50 12:19 WBC RBC Hgb Hct MCV MCH MCHC RDW Plt Count Lymph % (Auto) [place] % (Auto) Lymph # [place] # Baso # Seg Neutrophils % Seg Neuts % (Manual) Lymphocytes % (Manual) Monocytes % (Manual) Eosinophils % (Manual) Basophils % (Manual) Nucleated RBC % Seg Neutrophils # Seg Neutrophils # Man Lymphocytes # (Manual) Monocytes # (Manual) Eosinophils # (Manual) Basophils # (Manual) PT INR Fibrinogen dRVVT Confirm Interp Factor V Activity POC ABG pH POC ABG pCO2 POC ABG pO2 ABG pO2 ABG HCO3 ABG Base Excess ABG Hemoglobin Oxyhemoglobin Sodium Potassium 5.2 H D Chloride Carbon Dioxide BUN 63 H Creatinine Glucose 122 H POC Glucose 132 H 136 H Lactic Acid Calcium 8.3 L Phosphorus Magnesium Direct Bilirubin AST ALT Alkaline Phosphatase Lactate Dehydrogenase Troponin T C-Reactive Protein Total Protein Albumin Prealbumin Triglycerides Cholesterol LDL Cholesterol Direct HDL Cholesterol Urine pH Urine WBC (Auto) Urine Creatinine Urine Total Protein Fluid Total Protein Vancomycin Trough Rheumatoid Factor Complement C4 Miscellaneous Test Crossmatch 12/21/16 12/21/16 12/22/16 17:22 23:58 05:49 WBC RBC Hgb Hct MCV MCH MCHC RDW Plt Count Lymph % (Auto) [place] % (Auto) Lymph # [place] # Baso # Seg Neutrophils % Seg Neuts % (Manual) Lymphocytes % (Manual) Monocytes % (Manual) Eosinophils % (Manual) Basophils % (Manual) Nucleated RBC % Seg Neutrophils # Seg Neutrophils # Man Lymphocytes # (Manual) Monocytes # (Manual) Eosinophils # (Manual) Basophils # (Manual) PT INR Fibrinogen dRVVT Confirm Interp Factor V Activity POC ABG pH POC ABG pCO2 POC ABG pO2 ABG pO2 ABG HCO3 ABG Base Excess ABG Hemoglobin Oxyhemoglobin Sodium Potassium Chloride Carbon Dioxide BUN Creatinine Glucose POC Glucose 135 H 149 H 140 H Lactic Acid Calcium Phosphorus Magnesium Direct Bilirubin AST ALT Alkaline Phosphatase Lactate Dehydrogenase Troponin T C-Reactive Protein Total Protein Albumin Prealbumin Triglycerides Cholesterol LDL Cholesterol Direct HDL Cholesterol Urine pH Urine WBC (Auto) Urine Creatinine Urine Total Protein Fluid Total Protein Vancomycin Trough Rheumatoid Factor Complement C4 Miscellaneous Test Crossmatch 12/22/16 12/22/16 12/22/16 06:10 11:17 17:31 WBC RBC Hgb Hct MCV MCH MCHC RDW Plt Count Lymph % (Auto) [place] % (Auto) Lymph # [place] # Baso # Seg Neutrophils % Seg Neuts % (Manual) Lymphocytes % (Manual) Monocytes % (Manual) Eosinophils % (Manual) Basophils % (Manual) Nucleated RBC % Seg Neutrophils # Seg Neutrophils # Man Lymphocytes # (Manual) Monocytes # (Manual) Eosinophils # (Manual) Basophils # (Manual) PT INR Fibrinogen dRVVT Confirm Interp Factor V Activity POC ABG pH POC ABG pCO2 POC ABG pO2 ABG pO2 ABG HCO3 ABG Base Excess ABG Hemoglobin Oxyhemoglobin Sodium Potassium Chloride Carbon Dioxide BUN 76 H Creatinine 1.5 H Glucose 241 H POC Glucose 193 H 148 H Lactic Acid Calcium Phosphorus Magnesium Direct Bilirubin AST ALT Alkaline Phosphatase Lactate Dehydrogenase Troponin T C-Reactive Protein Total Protein Albumin Prealbumin Triglycerides Cholesterol LDL Cholesterol Direct HDL Cholesterol Urine pH Urine WBC (Auto) Urine Creatinine Urine Total Protein Fluid Total Protein Vancomycin Trough Rheumatoid Factor Complement C4 Miscellaneous Test Crossmatch 12/22/16 12/23/16 12/23/16 23:58 05:00 05:26 WBC RBC Hgb Hct MCV MCH MCHC RDW Plt Count Lymph % (Auto) [place] % (Auto) Lymph # [place] # Baso # Seg Neutrophils % Seg Neuts % (Manual) Lymphocytes % (Manual) Monocytes % (Manual) Eosinophils % (Manual) Basophils % (Manual) Nucleated RBC % Seg Neutrophils # Seg Neutrophils # Man Lymphocytes # (Manual) Monocytes # (Manual) Eosinophils # (Manual) Basophils # (Manual) PT INR Fibrinogen dRVVT Confirm Interp Factor V Activity POC ABG pH POC ABG pCO2 POC ABG pO2 ABG pO2 ABG HCO3 ABG Base Excess ABG Hemoglobin Oxyhemoglobin Sodium Potassium Chloride Carbon Dioxide BUN 49 H Creatinine Glucose 143 H POC Glucose 165 H 154 H Lactic Acid Calcium 8.2 L Phosphorus Magnesium 1.60 L Direct Bilirubin AST ALT Alkaline Phosphatase Lactate Dehydrogenase Troponin T C-Reactive Protein Total Protein Albumin Prealbumin Triglycerides Cholesterol LDL Cholesterol Direct HDL Cholesterol Urine pH Urine WBC (Auto) Urine Creatinine Urine Total Protein Fluid Total Protein Vancomycin Trough Rheumatoid Factor Complement C4 Miscellaneous Test Crossmatch 12/23/16 12/23/16 12/24/16 12:35 17:01 00:01 WBC RBC Hgb Hct MCV MCH MCHC RDW Plt Count Lymph % (Auto) [place] % (Auto) Lymph # [place] # Baso # Seg Neutrophils % Seg Neuts % (Manual) Lymphocytes % (Manual) Monocytes % (Manual) Eosinophils % (Manual) Basophils % (Manual) Nucleated RBC % Seg Neutrophils # Seg Neutrophils # Man Lymphocytes # (Manual) Monocytes # (Manual) Eosinophils # (Manual) Basophils # (Manual) PT INR Fibrinogen dRVVT Confirm Interp Factor V Activity POC ABG pH POC ABG pCO2 POC ABG pO2 ABG pO2 ABG HCO3 ABG Base Excess ABG Hemoglobin Oxyhemoglobin Sodium Potassium Chloride Carbon Dioxide BUN Creatinine Glucose POC Glucose 164 H 149 H 135 H Lactic Acid Calcium Phosphorus Magnesium Direct Bilirubin AST ALT Alkaline Phosphatase Lactate Dehydrogenase Troponin T C-Reactive Protein Total Protein Albumin Prealbumin Triglycerides Cholesterol LDL Cholesterol Direct HDL Cholesterol Urine pH Urine WBC (Auto) Urine Creatinine Urine Total Protein Fluid Total Protein Vancomycin Trough Rheumatoid Factor Complement C4 Miscellaneous Test Crossmatch 12/24/16 12/24/16 12/24/16 05:41 07:01 11:38 WBC RBC Hgb Hct MCV MCH MCHC RDW Plt Count Lymph % (Auto) [place] % (Auto) Lymph # [place] # Baso # Seg Neutrophils % Seg Neuts % (Manual) Lymphocytes % (Manual) Monocytes % (Manual) Eosinophils % (Manual) Basophils % (Manual) Nucleated RBC % Seg Neutrophils # Seg Neutrophils # Man Lymphocytes # (Manual) Monocytes # (Manual) Eosinophils # (Manual) Basophils # (Manual) PT INR Fibrinogen dRVVT Confirm Interp Factor V Activity POC ABG pH POC ABG pCO2 POC ABG pO2 ABG pO2 ABG HCO3 ABG Base Excess ABG Hemoglobin Oxyhemoglobin Sodium Potassium Chloride Carbon Dioxide BUN 72 H Creatinine 1.3 H Glucose 130 H POC Glucose 132 H 156 H Lactic Acid Calcium 8.2 L Phosphorus Magnesium Direct Bilirubin AST ALT Alkaline Phosphatase Lactate Dehydrogenase Troponin T C-Reactive Protein Total Protein Albumin Prealbumin Triglycerides Cholesterol LDL Cholesterol Direct HDL Cholesterol Urine pH Urine WBC (Auto) Urine Creatinine Urine Total Protein Fluid Total Protein Vancomycin Trough Rheumatoid Factor Complement C4 Miscellaneous Test Crossmatch 12/24/16 12/25/16 12/25/16 17:53 00:23 05:45 WBC RBC Hgb Hct MCV MCH MCHC RDW Plt Count Lymph % (Auto) [place] % (Auto) Lymph # [place] # Baso # Seg Neutrophils % Seg Neuts % (Manual) Lymphocytes % (Manual) Monocytes % (Manual) Eosinophils % (Manual) Basophils % (Manual) Nucleated RBC % Seg Neutrophils # Seg Neutrophils # Man Lymphocytes # (Manual) Monocytes # (Manual) Eosinophils # (Manual) Basophils # (Manual) PT INR Fibrinogen dRVVT Confirm Interp Factor V Activity POC ABG pH POC ABG pCO2 POC ABG pO2 ABG pO2 ABG HCO3 ABG Base Excess ABG Hemoglobin Oxyhemoglobin Sodium 146 H Potassium Chloride Carbon Dioxide BUN 51 H Creatinine Glucose 109 H POC Glucose 169 H 117 H Lactic Acid Calcium Phosphorus Magnesium Direct Bilirubin AST ALT Alkaline Phosphatase Lactate Dehydrogenase Troponin T C-Reactive Protein Total Protein Albumin Prealbumin Triglycerides Cholesterol LDL Cholesterol Direct HDL Cholesterol Urine pH Urine WBC (Auto) Urine Creatinine Urine Total Protein Fluid Total Protein Vancomycin Trough Rheumatoid Factor Complement C4 Miscellaneous Test Crossmatch 12/25/16 12/25/16 12/25/16 06:43 11:29 17:14 WBC RBC Hgb Hct MCV MCH MCHC RDW Plt Count Lymph % (Auto) [place] % (Auto) Lymph # [place] # Baso # Seg Neutrophils % Seg Neuts % (Manual) Lymphocytes % (Manual) Monocytes % (Manual) Eosinophils % (Manual) Basophils % (Manual) Nucleated RBC % Seg Neutrophils # Seg Neutrophils # Man Lymphocytes # (Manual) Monocytes # (Manual) Eosinophils # (Manual) Basophils # (Manual) PT INR Fibrinogen dRVVT Confirm Interp Factor V Activity POC ABG pH POC ABG pCO2 POC ABG pO2 ABG pO2 ABG HCO3 ABG Base Excess ABG Hemoglobin Oxyhemoglobin Sodium Potassium Chloride Carbon Dioxide BUN Creatinine Glucose POC Glucose 117 H 128 H 120 H Lactic Acid Calcium Phosphorus Magnesium Direct Bilirubin AST ALT Alkaline Phosphatase Lactate Dehydrogenase Troponin T C-Reactive Protein Total Protein Albumin Prealbumin Triglycerides Cholesterol LDL Cholesterol Direct HDL Cholesterol Urine pH Urine WBC (Auto) Urine Creatinine Urine Total Protein Fluid Total Protein Vancomycin Trough Rheumatoid Factor Complement C4 Miscellaneous Test Crossmatch 12/25/16 12/26/16 12/26/16 23:54 05:40 05:50 WBC 16.2 H RBC 2.32 L Hgb 6.2 L Hct 20.1 L MCV MCH 27 L MCHC RDW 18.6 H Plt Count Lymph % (Auto) [place] % (Auto) Lymph # [place] # Baso # Seg Neutrophils % Seg Neuts % (Manual) Lymphocytes % (Manual) Monocytes % (Manual) Eosinophils % (Manual) Basophils % (Manual) Nucleated RBC % Seg Neutrophils # Seg Neutrophils # Man Lymphocytes # (Manual) Monocytes # (Manual) Eosinophils # (Manual) Basophils # (Manual) PT INR Fibrinogen dRVVT Confirm Interp Factor V Activity POC ABG pH POC ABG pCO2 POC ABG pO2 ABG pO2 ABG HCO3 ABG Base Excess ABG Hemoglobin Oxyhemoglobin Sodium Potassium Chloride Carbon Dioxide BUN Creatinine Glucose POC Glucose 126 H 132 H Lactic Acid Calcium Phosphorus Magnesium Direct Bilirubin AST ALT Alkaline Phosphatase Lactate Dehydrogenase Troponin T C-Reactive Protein Total Protein Albumin Prealbumin Triglycerides Cholesterol LDL Cholesterol Direct HDL Cholesterol Urine pH Urine WBC (Auto) Urine Creatinine Urine Total Protein Fluid Total Protein Vancomycin Trough Rheumatoid Factor Complement C4 Miscellaneous Test Crossmatch 12/26/16 12/26/16 12/26/16 05:50 12:17 12:33 WBC RBC Hgb Hct MCV MCH MCHC RDW Plt Count Lymph % (Auto) [place] % (Auto) Lymph # [place] # Baso # Seg Neutrophils % Seg Neuts % (Manual) Lymphocytes % (Manual) Monocytes % (Manual) Eosinophils % (Manual) Basophils % (Manual) Nucleated RBC % Seg Neutrophils # Seg Neutrophils # Man Lymphocytes # (Manual) Monocytes # (Manual) Eosinophils # (Manual) Basophils # (Manual) PT INR Fibrinogen dRVVT Confirm Interp Factor V Activity POC ABG pH POC ABG pCO2 POC ABG pO2 ABG pO2 ABG HCO3 ABG Base Excess ABG Hemoglobin Oxyhemoglobin Sodium Potassium Chloride Carbon Dioxide BUN 73 H Creatinine 1.3 H Glucose 113 H POC Glucose 117 H Lactic Acid Calcium Phosphorus Magnesium Direct Bilirubin AST ALT Alkaline Phosphatase Lactate Dehydrogenase Troponin T C-Reactive Protein Total Protein Albumin Prealbumin Triglycerides Cholesterol LDL Cholesterol Direct HDL Cholesterol Urine pH Urine WBC (Auto) Urine Creatinine Urine Total Protein Fluid Total Protein Vancomycin Trough Rheumatoid Factor Complement C4 Miscellaneous Test Crossmatch See Detail 12/26/16 12/26/16 12/27/16 20:00 23:21 05:00 WBC RBC Hgb 8.4 L Hct 26.3 L D MCV MCH MCHC RDW Plt Count Lymph % (Auto) [place] % (Auto) Lymph # [place] # Baso # Seg Neutrophils % Seg Neuts % (Manual) Lymphocytes % (Manual) Monocytes % (Manual) Eosinophils % (Manual) Basophils % (Manual) Nucleated RBC % Seg Neutrophils # Seg Neutrophils # Man Lymphocytes # (Manual) Monocytes # (Manual) Eosinophils # (Manual) Basophils # (Manual) PT INR Fibrinogen dRVVT Confirm Interp Factor V Activity POC ABG pH POC ABG pCO2 POC ABG pO2 ABG pO2 ABG HCO3 ABG Base Excess ABG Hemoglobin Oxyhemoglobin Sodium Potassium Chloride Carbon Dioxide BUN 85 H Creatinine 1.6 H Glucose 118 H POC Glucose 124 H Lactic Acid Calcium Phosphorus 4.80 H Magnesium Direct Bilirubin AST ALT Alkaline Phosphatase Lactate Dehydrogenase Troponin T C-Reactive Protein Total Protein Albumin Prealbumin Triglycerides Cholesterol LDL Cholesterol Direct HDL Cholesterol Urine pH Urine WBC (Auto) Urine Creatinine Urine Total Protein Fluid Total Protein Vancomycin Trough Rheumatoid Factor Complement C4 Miscellaneous Test Crossmatch 12/27/16 12/27/16 12/27/16 05:00 05:35 12:24 WBC RBC Hgb 7.6 L Hct 22.8 L MCV MCH MCHC RDW Plt Count Lymph % (Auto) [place] % (Auto) Lymph # [place] # Baso # Seg Neutrophils % Seg Neuts % (Manual) Lymphocytes % (Manual) Monocytes % (Manual) Eosinophils % (Manual) Basophils % (Manual) Nucleated RBC % Seg Neutrophils # Seg Neutrophils # Man Lymphocytes # (Manual) Monocytes # (Manual) Eosinophils # (Manual) Basophils # (Manual) PT INR Fibrinogen dRVVT Confirm Interp Factor V Activity POC ABG pH POC ABG pCO2 POC ABG pO2 ABG pO2 ABG HCO3 ABG Base Excess ABG Hemoglobin Oxyhemoglobin Sodium Potassium Chloride Carbon Dioxide BUN Creatinine Glucose POC Glucose 115 H 131 H Lactic Acid Calcium Phosphorus Magnesium Direct Bilirubin AST ALT Alkaline Phosphatase Lactate Dehydrogenase Troponin T C-Reactive Protein Total Protein Albumin Prealbumin Triglycerides Cholesterol LDL Cholesterol Direct HDL Cholesterol Urine pH Urine WBC (Auto) Urine Creatinine Urine Total Protein Fluid Total Protein Vancomycin Trough Rheumatoid Factor Complement C4 Miscellaneous Test Crossmatch 12/27/16 12/28/16 12/28/16 17:16 00:18 04:00 WBC RBC Hgb Hct MCV MCH MCHC RDW Plt Count Lymph % (Auto) [place] % (Auto) Lymph # [place] # Baso # Seg Neutrophils % Seg Neuts % (Manual) Lymphocytes % (Manual) Monocytes % (Manual) Eosinophils % (Manual) Basophils % (Manual) Nucleated RBC % Seg Neutrophils # Seg Neutrophils # Man Lymphocytes # (Manual) Monocytes # (Manual) Eosinophils # (Manual) Basophils # (Manual) PT INR Fibrinogen dRVVT Confirm Interp Factor V Activity POC ABG pH POC ABG pCO2 POC ABG pO2 ABG pO2 ABG HCO3 ABG Base Excess ABG Hemoglobin Oxyhemoglobin Sodium Potassium 3.5 L Chloride Carbon Dioxide BUN 57 H Creatinine Glucose 118 H POC Glucose 136 H 120 H Lactic Acid Calcium 8.3 L Phosphorus Magnesium Direct Bilirubin AST ALT Alkaline Phosphatase Lactate Dehydrogenase Troponin T C-Reactive Protein Total Protein Albumin Prealbumin Triglycerides Cholesterol LDL Cholesterol Direct HDL Cholesterol Urine pH Urine WBC (Auto) Urine Creatinine Urine Total Protein Fluid Total Protein Vancomycin Trough Rheumatoid Factor Complement C4 Miscellaneous Test Crossmatch 12/28/16 12/28/16 12/28/16 04:00 05:11 08:30 WBC 17.0 H RBC 2.58 L Hgb 7.1 L Hct 22.0 L MCV MCH MCHC RDW 17.6 H Plt Count Lymph % (Auto) 12.2 L [place] % (Auto) Lymph # [place] # 1.1 H Baso # Seg Neutrophils % 80.5 H Seg Neuts % (Manual) Lymphocytes % (Manual) Monocytes % (Manual) Eosinophils % (Manual) Basophils % (Manual) Nucleated RBC % Seg Neutrophils # 13.7 H Seg Neutrophils # Man Lymphocytes # (Manual) Monocytes # (Manual) Eosinophils # (Manual) Basophils # (Manual) PT 16.1 H INR 1.23 H Fibrinogen dRVVT Confirm Interp Factor V Activity POC ABG pH POC ABG pCO2 POC ABG pO2 ABG pO2 ABG HCO3 ABG Base Excess ABG Hemoglobin Oxyhemoglobin Sodium Potassium Chloride Carbon Dioxide BUN Creatinine Glucose POC Glucose 122 H Lactic Acid Calcium Phosphorus Magnesium Direct Bilirubin AST ALT Alkaline Phosphatase Lactate Dehydrogenase Troponin T C-Reactive Protein Total Protein Albumin Prealbumin Triglycerides Cholesterol LDL Cholesterol Direct HDL Cholesterol Urine pH Urine WBC (Auto) Urine Creatinine Urine Total Protein Fluid Total Protein Vancomycin Trough Rheumatoid Factor Complement C4 Miscellaneous Test Crossmatch 12/28/16 12/28/16 12/28/16 12:27 16:32 23:46 WBC RBC Hgb Hct MCV MCH MCHC RDW Plt Count Lymph % (Auto) [place] % (Auto) Lymph # [place] # Baso # Seg Neutrophils % Seg Neuts % (Manual) Lymphocytes % (Manual) Monocytes % (Manual) Eosinophils % (Manual) Basophils % (Manual) Nucleated RBC % Seg Neutrophils # Seg Neutrophils # Man Lymphocytes # (Manual) Monocytes # (Manual) Eosinophils # (Manual) Basophils # (Manual) PT INR Fibrinogen dRVVT Confirm Interp Factor V Activity POC ABG pH POC ABG pCO2 POC ABG pO2 ABG pO2 ABG HCO3 ABG Base Excess ABG Hemoglobin Oxyhemoglobin Sodium Potassium Chloride Carbon Dioxide BUN Creatinine Glucose POC Glucose 127 H 117 H 108 H Lactic Acid Calcium Phosphorus Magnesium Direct Bilirubin AST ALT Alkaline Phosphatase Lactate Dehydrogenase Troponin T C-Reactive Protein Total Protein Albumin Prealbumin Triglycerides Cholesterol LDL Cholesterol Direct HDL Cholesterol Urine pH Urine WBC (Auto) Urine Creatinine Urine Total Protein Fluid Total Protein Vancomycin Trough Rheumatoid Factor Complement C4 Miscellaneous Test Crossmatch 12/29/16 12/29/16 12/29/16 05:15 05:15 05:32 WBC RBC Hgb Hct MCV MCH MCHC RDW Plt Count Lymph % (Auto) [place] % (Auto) Lymph # [place] # Baso # Seg Neutrophils % Seg Neuts % (Manual) Lymphocytes % (Manual) Monocytes % (Manual) Eosinophils % (Manual) Basophils % (Manual) Nucleated RBC % Seg Neutrophils # Seg Neutrophils # Man Lymphocytes # (Manual) Monocytes # (Manual) Eosinophils # (Manual) Basophils # (Manual) PT INR Fibrinogen dRVVT Confirm Interp Factor V Activity POC ABG pH POC ABG pCO2 POC ABG pO2 ABG pO2 ABG HCO3 ABG Base Excess ABG Hemoglobin Oxyhemoglobin Sodium Potassium Chloride Carbon Dioxide BUN 74 H Creatinine 1.6 H Glucose 111 H POC Glucose 123 H Lactic Acid Calcium Phosphorus Magnesium Direct Bilirubin AST ALT Alkaline Phosphatase Lactate Dehydrogenase Troponin T C-Reactive Protein Total Protein Albumin Prealbumin 0.110 L Triglycerides Cholesterol LDL Cholesterol Direct HDL Cholesterol Urine pH Urine WBC (Auto) Urine Creatinine Urine Total Protein Fluid Total Protein Vancomycin Trough Rheumatoid Factor Complement C4 Miscellaneous Test Crossmatch 12/29/16 12/29/16 12/29/16 11:43 13:45 14:00 WBC 13.8 H RBC 2.26 L Hgb 6.3 L Hct 20.4 L MCV MCH MCHC RDW 18.3 H Plt Count Lymph % (Auto) [place] % (Auto) Lymph # [place] # 0.9 H Baso # Seg Neutrophils % 78.6 H Seg Neuts % (Manual) Lymphocytes % (Manual) Monocytes % (Manual) Eosinophils % (Manual) Basophils % (Manual) Nucleated RBC % Seg Neutrophils # 10.8 H Seg Neutrophils # Man Lymphocytes # (Manual) Monocytes # (Manual) Eosinophils # (Manual) Basophils # (Manual) PT INR Fibrinogen dRVVT Confirm Interp Factor V Activity POC ABG pH POC ABG pCO2 POC ABG pO2 ABG pO2 ABG HCO3 ABG Base Excess ABG Hemoglobin Oxyhemoglobin Sodium Potassium Chloride Carbon Dioxide BUN Creatinine Glucose POC Glucose 133 H Lactic Acid Calcium Phosphorus Magnesium Direct Bilirubin AST ALT Alkaline Phosphatase Lactate Dehydrogenase Troponin T C-Reactive Protein Total Protein Albumin Prealbumin Triglycerides Cholesterol LDL Cholesterol Direct HDL Cholesterol Urine pH Urine WBC (Auto) Urine Creatinine Urine Total Protein Fluid Total Protein Vancomycin Trough Rheumatoid Factor Complement C4 Miscellaneous Test Crossmatch See Detail 12/29/16 12/29/16 12/29/16 17:03 23:15 23:22 WBC RBC Hgb 7.3 L Hct 22.3 L MCV MCH MCHC RDW Plt Count Lymph % (Auto) [place] % (Auto) Lymph # [place] # Baso # Seg Neutrophils % Seg Neuts % (Manual) Lymphocytes % (Manual) Monocytes % (Manual) Eosinophils % (Manual) Basophils % (Manual) Nucleated RBC % Seg Neutrophils # Seg Neutrophils # Man Lymphocytes # (Manual) Monocytes # (Manual) Eosinophils # (Manual) Basophils # (Manual) PT INR Fibrinogen dRVVT Confirm Interp Factor V Activity POC ABG pH POC ABG pCO2 POC ABG pO2 ABG pO2 ABG HCO3 ABG Base Excess ABG Hemoglobin Oxyhemoglobin Sodium Potassium Chloride Carbon Dioxide BUN Creatinine Glucose POC Glucose 139 H 120 H Lactic Acid Calcium Phosphorus Magnesium Direct Bilirubin AST ALT Alkaline Phosphatase Lactate Dehydrogenase Troponin T C-Reactive Protein Total Protein Albumin Prealbumin Triglycerides Cholesterol LDL Cholesterol Direct HDL Cholesterol Urine pH Urine WBC (Auto) Urine Creatinine Urine Total Protein Fluid Total Protein Vancomycin Trough Rheumatoid Factor Complement C4 Miscellaneous Test Crossmatch 12/30/16 12/30/16 12/30/16 04:20 04:20 05:43 WBC 15.6 H RBC 2.81 L Hgb 8.0 L Hct 24.0 L MCV MCH MCHC RDW 16.9 H Plt Count Lymph % (Auto) [place] % (Auto) Lymph # [place] # 1.0 H Baso # Seg Neutrophils % 76.2 H Seg Neuts % (Manual) Lymphocytes % (Manual) Monocytes % (Manual) Eosinophils % (Manual) Basophils % (Manual) Nucleated RBC % Seg Neutrophils # 11.9 H Seg Neutrophils # Man Lymphocytes # (Manual) Monocytes # (Manual) Eosinophils # (Manual) Basophils # (Manual) PT INR Fibrinogen dRVVT Confirm Interp Factor V Activity POC ABG pH POC ABG pCO2 POC ABG pO2 ABG pO2 ABG HCO3 ABG Base Excess ABG Hemoglobin Oxyhemoglobin Sodium Potassium Chloride Carbon Dioxide BUN 87 H Creatinine 1.8 H Glucose 119 H POC Glucose 115 H Lactic Acid Calcium Phosphorus Magnesium Direct Bilirubin AST ALT Alkaline Phosphatase Lactate Dehydrogenase Troponin T C-Reactive Protein Total Protein Albumin Prealbumin Triglycerides Cholesterol LDL Cholesterol Direct HDL Cholesterol Urine pH Urine WBC (Auto) Urine Creatinine Urine Total Protein Fluid Total Protein Vancomycin Trough Rheumatoid Factor Complement C4 Miscellaneous Test Crossmatch 12/30/16 12/30/16 12/31/16 17:27 23:21 04:00 WBC RBC Hgb Hct MCV MCH MCHC RDW Plt Count Lymph % (Auto) [place] % (Auto) Lymph # [place] # Baso # Seg Neutrophils % Seg Neuts % (Manual) Lymphocytes % (Manual) Monocytes % (Manual) Eosinophils % (Manual) Basophils % (Manual) Nucleated RBC % Seg Neutrophils # Seg Neutrophils # Man Lymphocytes # (Manual) Monocytes # (Manual) Eosinophils # (Manual) Basophils # (Manual) PT INR Fibrinogen dRVVT Confirm Interp Factor V Activity POC ABG pH POC ABG pCO2 POC ABG pO2 ABG pO2 ABG HCO3 ABG Base Excess ABG Hemoglobin Oxyhemoglobin Sodium Potassium Chloride Carbon Dioxide BUN 59 H Creatinine Glucose 298 H POC Glucose 144 H 125 H Lactic Acid Calcium Phosphorus Magnesium Direct Bilirubin AST ALT Alkaline Phosphatase Lactate Dehydrogenase Troponin T C-Reactive Protein Total Protein Albumin Prealbumin Triglycerides Cholesterol LDL Cholesterol Direct HDL Cholesterol Urine pH Urine WBC (Auto) Urine Creatinine Urine Total Protein Fluid Total Protein Vancomycin Trough Rheumatoid Factor Complement C4 Miscellaneous Test Crossmatch 12/31/16 12/31/16 12/31/16 05:11 12:18 18:17 WBC RBC Hgb Hct MCV MCH MCHC RDW Plt Count Lymph % (Auto) [place] % (Auto) Lymph # [place] # Baso # Seg Neutrophils % Seg Neuts % (Manual) Lymphocytes % (Manual) Monocytes % (Manual) Eosinophils % (Manual) Basophils % (Manual) Nucleated RBC % Seg Neutrophils # Seg Neutrophils # Man Lymphocytes # (Manual) Monocytes # (Manual) Eosinophils # (Manual) Basophils # (Manual) PT INR Fibrinogen dRVVT Confirm Interp Factor V Activity POC ABG pH POC ABG pCO2 POC ABG pO2 ABG pO2 ABG HCO3 ABG Base Excess ABG Hemoglobin Oxyhemoglobin Sodium Potassium Chloride Carbon Dioxide BUN Creatinine Glucose POC Glucose 167 H 125 H 133 H Lactic Acid Calcium Phosphorus Magnesium Direct Bilirubin AST ALT Alkaline Phosphatase Lactate Dehydrogenase Troponin T C-Reactive Protein Total Protein Albumin Prealbumin Triglycerides Cholesterol LDL Cholesterol Direct HDL Cholesterol Urine pH Urine WBC (Auto) Urine Creatinine Urine Total Protein Fluid Total Protein Vancomycin Trough Rheumatoid Factor Complement C4 Miscellaneous Test Crossmatch 12/31/16 01/01/17 01/01/17 23:55 05:00 05:12 WBC RBC Hgb Hct MCV MCH MCHC RDW Plt Count Lymph % (Auto) [place] % (Auto) Lymph # [place] # Baso # Seg Neutrophils % Seg Neuts % (Manual) Lymphocytes % (Manual) Monocytes % (Manual) Eosinophils % (Manual) Basophils % (Manual) Nucleated RBC % Seg Neutrophils # Seg Neutrophils # Man Lymphocytes # (Manual) Monocytes # (Manual) Eosinophils # (Manual) Basophils # (Manual) PT INR Fibrinogen dRVVT Confirm Interp Factor V Activity POC ABG pH POC ABG pCO2 POC ABG pO2 ABG pO2 ABG HCO3 ABG Base Excess ABG Hemoglobin Oxyhemoglobin Sodium Potassium Chloride Carbon Dioxide BUN 76 H Creatinine 1.5 H Glucose 109 H POC Glucose 129 H 129 H Lactic Acid Calcium Phosphorus Magnesium Direct Bilirubin AST ALT Alkaline Phosphatase 536 H Lactate Dehydrogenase Troponin T C-Reactive Protein Total Protein Albumin 1.5 L Prealbumin Triglycerides Cholesterol LDL Cholesterol Direct HDL Cholesterol Urine pH Urine WBC (Auto) Urine Creatinine Urine Total Protein Fluid Total Protein Vancomycin Trough Rheumatoid Factor Complement C4 Miscellaneous Test Crossmatch 01/01/17 01/01/17 01/01/17 12:25 17:01 23:32 WBC RBC Hgb Hct MCV MCH MCHC RDW Plt Count Lymph % (Auto) [place] % (Auto) Lymph # [place] # Baso # Seg Neutrophils % Seg Neuts % (Manual) Lymphocytes % (Manual) Monocytes % (Manual) Eosinophils % (Manual) Basophils % (Manual) Nucleated RBC % Seg Neutrophils # Seg Neutrophils # Man Lymphocytes # (Manual) Monocytes # (Manual) Eosinophils # (Manual) Basophils # (Manual) PT INR Fibrinogen dRVVT Confirm Interp Factor V Activity POC ABG pH POC ABG pCO2 POC ABG pO2 ABG pO2 ABG HCO3 ABG Base Excess ABG Hemoglobin Oxyhemoglobin Sodium Potassium Chloride Carbon Dioxide BUN Creatinine Glucose POC Glucose 140 H 142 H 112 H Lactic Acid Calcium Phosphorus Magnesium Direct Bilirubin AST ALT Alkaline Phosphatase Lactate Dehydrogenase Troponin T C-Reactive Protein Total Protein Albumin Prealbumin Triglycerides Cholesterol LDL Cholesterol Direct HDL Cholesterol Urine pH Urine WBC (Auto) Urine Creatinine Urine Total Protein Fluid Total Protein Vancomycin Trough Rheumatoid Factor Complement C4 Miscellaneous Test Crossmatch 01/02/17 01/02/17 01/02/17 04:56 06:00 11:37 WBC RBC Hgb Hct MCV MCH MCHC RDW Plt Count Lymph % (Auto) [place] % (Auto) Lymph # [place] # Baso # Seg Neutrophils % Seg Neuts % (Manual) Lymphocytes % (Manual) Monocytes % (Manual) Eosinophils % (Manual) Basophils % (Manual) Nucleated RBC % Seg Neutrophils # Seg Neutrophils # Man Lymphocytes # (Manual) Monocytes # (Manual) Eosinophils # (Manual) Basophils # (Manual) PT INR Fibrinogen dRVVT Confirm Interp Factor V Activity POC ABG pH POC ABG pCO2 POC ABG pO2 ABG pO2 ABG HCO3 ABG Base Excess ABG Hemoglobin Oxyhemoglobin Sodium Potassium Chloride Carbon Dioxide BUN 88 H Creatinine 1.7 H Glucose 113 H POC Glucose 136 H 200 H Lactic Acid Calcium Phosphorus Magnesium Direct Bilirubin AST ALT Alkaline Phosphatase Lactate Dehydrogenase Troponin T C-Reactive Protein Total Protein Albumin Prealbumin Triglycerides Cholesterol LDL Cholesterol Direct HDL Cholesterol Urine pH Urine WBC (Auto) Urine Creatinine Urine Total Protein Fluid Total Protein Vancomycin Trough Rheumatoid Factor Complement C4 Miscellaneous Test Crossmatch 01/02/17 01/02/17 01/03/17 17:42 22:52 04:54 WBC RBC Hgb Hct MCV MCH MCHC RDW Plt Count Lymph % (Auto) [place] % (Auto) Lymph # [place] # Baso # Seg Neutrophils % Seg Neuts % (Manual) Lymphocytes % (Manual) Monocytes % (Manual) Eosinophils % (Manual) Basophils % (Manual) Nucleated RBC % Seg Neutrophils # Seg Neutrophils # Man Lymphocytes # (Manual) Monocytes # (Manual) Eosinophils # (Manual) Basophils # (Manual) PT INR Fibrinogen dRVVT Confirm Interp Factor V Activity POC ABG pH POC ABG pCO2 POC ABG pO2 ABG pO2 ABG HCO3 ABG Base Excess ABG Hemoglobin Oxyhemoglobin Sodium Potassium Chloride Carbon Dioxide BUN Creatinine Glucose POC Glucose 112 H 133 H 111 H Lactic Acid Calcium Phosphorus Magnesium Direct Bilirubin AST ALT Alkaline Phosphatase Lactate Dehydrogenase Troponin T C-Reactive Protein Total Protein Albumin Prealbumin Triglycerides Cholesterol LDL Cholesterol Direct HDL Cholesterol Urine pH Urine WBC (Auto) Urine Creatinine Urine Total Protein Fluid Total Protein Vancomycin Trough Rheumatoid Factor Complement C4 Miscellaneous Test Crossmatch 01/03/17 01/03/17 01/03/17 05:00 05:00 14:02 WBC 11.2 H RBC 2.56 L Hgb 7.2 L Hct 22.3 L MCV MCH MCHC RDW 17.3 H Plt Count Lymph % (Auto) [place] % (Auto) 10.0 H Lymph # [place] # 1.1 H Baso # Seg Neutrophils % 70.5 H Seg Neuts % (Manual) Lymphocytes % (Manual) Monocytes % (Manual) Eosinophils % (Manual) Basophils % (Manual) Nucleated RBC % Seg Neutrophils # 7.9 H Seg Neutrophils # Man Lymphocytes # (Manual) Monocytes # (Manual) Eosinophils # (Manual) Basophils # (Manual) PT INR Fibrinogen dRVVT Confirm Interp Factor V Activity POC ABG pH POC ABG pCO2 POC ABG pO2 ABG pO2 ABG HCO3 ABG Base Excess ABG Hemoglobin Oxyhemoglobin Sodium Potassium Chloride Carbon Dioxide BUN 60 H Creatinine 1.3 H Glucose 110 H POC Glucose 119 H Lactic Acid Calcium Phosphorus Magnesium Direct Bilirubin AST ALT Alkaline Phosphatase Lactate Dehydrogenase Troponin T C-Reactive Protein Total Protein Albumin Prealbumin Triglycerides Cholesterol LDL Cholesterol Direct HDL Cholesterol Urine pH Urine WBC (Auto) Urine Creatinine Urine Total Protein Fluid Total Protein Vancomycin Trough Rheumatoid Factor Complement C4 Miscellaneous Test Crossmatch 01/03/17 01/03/17 01/04/17 18:13 23:40 05:57 WBC RBC Hgb Hct MCV MCH MCHC RDW Plt Count Lymph % (Auto) [place] % (Auto) Lymph # [place] # Baso # Seg Neutrophils % Seg Neuts % (Manual) Lymphocytes % (Manual) Monocytes % (Manual) Eosinophils % (Manual) Basophils % (Manual) Nucleated RBC % Seg Neutrophils # Seg Neutrophils # Man Lymphocytes # (Manual) Monocytes # (Manual) Eosinophils # (Manual) Basophils # (Manual) PT INR Fibrinogen dRVVT Confirm Interp Factor V Activity POC ABG pH POC ABG pCO2 POC ABG pO2 ABG pO2 ABG HCO3 ABG Base Excess ABG Hemoglobin Oxyhemoglobin Sodium Potassium Chloride Carbon Dioxide BUN Creatinine Glucose POC Glucose 107 H 129 H 111 H Lactic Acid Calcium Phosphorus Magnesium Direct Bilirubin AST ALT Alkaline Phosphatase Lactate Dehydrogenase Troponin T C-Reactive Protein Total Protein Albumin Prealbumin Triglycerides Cholesterol LDL Cholesterol Direct HDL Cholesterol Urine pH Urine WBC (Auto) Urine Creatinine Urine Total Protein Fluid Total Protein Vancomycin Trough Rheumatoid Factor Complement C4 Miscellaneous Test Crossmatch 01/04/17 01/04/17 01/04/17 12:46 15:27 17:11 WBC RBC Hgb Hct MCV MCH MCHC RDW Plt Count Lymph % (Auto) [place] % (Auto) Lymph # [place] # Baso # Seg Neutrophils % Seg Neuts % (Manual) Lymphocytes % (Manual) Monocytes % (Manual) Eosinophils % (Manual) Basophils % (Manual) Nucleated RBC % Seg Neutrophils # Seg Neutrophils # Man Lymphocytes # (Manual) Monocytes # (Manual) Eosinophils # (Manual) Basophils # (Manual) PT INR Fibrinogen dRVVT Confirm Interp Factor V Activity POC ABG pH POC ABG pCO2 POC ABG pO2 ABG pO2 ABG HCO3 ABG Base Excess ABG Hemoglobin Oxyhemoglobin Sodium Potassium Chloride Carbon Dioxide BUN 43 H Creatinine Glucose 124 H POC Glucose 159 H 125 H Lactic Acid Calcium 8.0 L Phosphorus 2.10 L Magnesium Direct Bilirubin AST ALT Alkaline Phosphatase Lactate Dehydrogenase Troponin T C-Reactive Protein Total Protein Albumin Prealbumin Triglycerides Cholesterol LDL Cholesterol Direct HDL Cholesterol Urine pH Urine WBC (Auto) Urine Creatinine Urine Total Protein Fluid Total Protein Vancomycin Trough Rheumatoid Factor Complement C4 Miscellaneous Test Crossmatch 01/04/17 01/05/17 01/05/17 23:31 04:00 05:46 WBC RBC Hgb Hct MCV MCH MCHC RDW Plt Count Lymph % (Auto) [place] % (Auto) Lymph # [place] # Baso # Seg Neutrophils % Seg Neuts % (Manual) Lymphocytes % (Manual) Monocytes % (Manual) Eosinophils % (Manual) Basophils % (Manual) Nucleated RBC % Seg Neutrophils # Seg Neutrophils # Man Lymphocytes # (Manual) Monocytes # (Manual) Eosinophils # (Manual) Basophils # (Manual) PT INR Fibrinogen dRVVT Confirm Interp Factor V Activity POC ABG pH POC ABG pCO2 POC ABG pO2 ABG pO2 ABG HCO3 ABG Base Excess ABG Hemoglobin Oxyhemoglobin Sodium Potassium Chloride Carbon Dioxide BUN 52 H Creatinine 1.3 H Glucose 113 H POC Glucose 123 H 118 H Lactic Acid Calcium Phosphorus 2.40 L Magnesium Direct Bilirubin AST ALT Alkaline Phosphatase Lactate Dehydrogenase Troponin T C-Reactive Protein Total Protein Albumin Prealbumin Triglycerides Cholesterol LDL Cholesterol Direct HDL Cholesterol Urine pH Urine WBC (Auto) Urine Creatinine Urine Total Protein Fluid Total Protein Vancomycin Trough Rheumatoid Factor Complement C4 Miscellaneous Test Crossmatch 01/05/17 01/05/17 01/05/17 11:41 17:48 23:27 WBC RBC Hgb Hct MCV MCH MCHC RDW Plt Count Lymph % (Auto) [place] % (Auto) Lymph # [place] # Baso # Seg Neutrophils % Seg Neuts % (Manual) Lymphocytes % (Manual) Monocytes % (Manual) Eosinophils % (Manual) Basophils % (Manual) Nucleated RBC % Seg Neutrophils # Seg Neutrophils # Man Lymphocytes # (Manual) Monocytes # (Manual) Eosinophils # (Manual) Basophils # (Manual) PT INR Fibrinogen dRVVT Confirm Interp Factor V Activity POC ABG pH POC ABG pCO2 POC ABG pO2 ABG pO2 ABG HCO3 ABG Base Excess ABG Hemoglobin Oxyhemoglobin Sodium Potassium Chloride Carbon Dioxide BUN Creatinine Glucose POC Glucose 163 H 142 H 155 H Lactic Acid Calcium Phosphorus Magnesium Direct Bilirubin AST ALT Alkaline Phosphatase Lactate Dehydrogenase Troponin T C-Reactive Protein Total Protein Albumin Prealbumin Triglycerides Cholesterol LDL Cholesterol Direct HDL Cholesterol Urine pH Urine WBC (Auto) Urine Creatinine Urine Total Protein Fluid Total Protein Vancomycin Trough Rheumatoid Factor Complement C4 Miscellaneous Test Crossmatch 01/06/17 01/06/17 01/06/17 05:20 07:35 11:18 WBC RBC Hgb Hct MCV MCH MCHC RDW Plt Count Lymph % (Auto) [place] % (Auto) Lymph # [place] # Baso # Seg Neutrophils % Seg Neuts % (Manual) Lymphocytes % (Manual) Monocytes % (Manual) Eosinophils % (Manual) Basophils % (Manual) Nucleated RBC % Seg Neutrophils # Seg Neutrophils # Man Lymphocytes # (Manual) Monocytes # (Manual) Eosinophils # (Manual) Basophils # (Manual) PT INR Fibrinogen dRVVT Confirm Interp Factor V Activity POC ABG pH POC ABG pCO2 POC ABG pO2 ABG pO2 ABG HCO3 ABG Base Excess ABG Hemoglobin Oxyhemoglobin Sodium Potassium Chloride Carbon Dioxide BUN 74 H Creatinine 1.6 H Glucose 135 H POC Glucose 108 H 149 H Lactic Acid Calcium Phosphorus Magnesium Direct Bilirubin AST ALT Alkaline Phosphatase Lactate Dehydrogenase Troponin T C-Reactive Protein Total Protein Albumin Prealbumin Triglycerides Cholesterol LDL Cholesterol Direct HDL Cholesterol Urine pH Urine WBC (Auto) Urine Creatinine Urine Total Protein Fluid Total Protein Vancomycin Trough Rheumatoid Factor Complement C4 Miscellaneous Test Crossmatch 01/06/17 01/07/17 01/07/17 17:17 00:23 05:31 WBC RBC Hgb Hct MCV MCH MCHC RDW Plt Count Lymph % (Auto) [place] % (Auto) Lymph # [place] # Baso # Seg Neutrophils % Seg Neuts % (Manual) Lymphocytes % (Manual) Monocytes % (Manual) Eosinophils % (Manual) Basophils % (Manual) Nucleated RBC % Seg Neutrophils # Seg Neutrophils # Man Lymphocytes # (Manual) Monocytes # (Manual) Eosinophils # (Manual) Basophils # (Manual) PT INR Fibrinogen dRVVT Confirm Interp Factor V Activity POC ABG pH POC ABG pCO2 POC ABG pO2 ABG pO2 ABG HCO3 ABG Base Excess ABG Hemoglobin Oxyhemoglobin Sodium Potassium Chloride Carbon Dioxide BUN Creatinine Glucose POC Glucose 146 H 165 H 153 H Lactic Acid Calcium Phosphorus Magnesium Direct Bilirubin AST ALT Alkaline Phosphatase Lactate Dehydrogenase Troponin T C-Reactive Protein Total Protein Albumin Prealbumin Triglycerides Cholesterol LDL Cholesterol Direct HDL Cholesterol Urine pH Urine WBC (Auto) Urine Creatinine Urine Total Protein Fluid Total Protein Vancomycin Trough Rheumatoid Factor Complement C4 Miscellaneous Test Crossmatch 01/07/17 01/07/17 01/07/17 06:00 11:39 17:11 WBC RBC Hgb Hct MCV MCH MCHC RDW Plt Count Lymph % (Auto) [place] % (Auto) Lymph # [place] # Baso # Seg Neutrophils % Seg Neuts % (Manual) Lymphocytes % (Manual) Monocytes % (Manual) Eosinophils % (Manual) Basophils % (Manual) Nucleated RBC % Seg Neutrophils # Seg Neutrophils # Man Lymphocytes # (Manual) Monocytes # (Manual) Eosinophils # (Manual) Basophils # (Manual) PT INR Fibrinogen dRVVT Confirm Interp Factor V Activity POC ABG pH POC ABG pCO2 POC ABG pO2 ABG pO2 ABG HCO3 ABG Base Excess ABG Hemoglobin Oxyhemoglobin Sodium Potassium Chloride Carbon Dioxide BUN 42 H Creatinine Glucose 175 H POC Glucose 163 H 163 H Lactic Acid Calcium Phosphorus 2.40 L D Magnesium Direct Bilirubin AST ALT Alkaline Phosphatase Lactate Dehydrogenase Troponin T C-Reactive Protein Total Protein Albumin Prealbumin Triglycerides Cholesterol LDL Cholesterol Direct HDL Cholesterol Urine pH Urine WBC (Auto) Urine Creatinine Urine Total Protein Fluid Total Protein Vancomycin Trough Rheumatoid Factor Complement C4 Miscellaneous Test Crossmatch 01/07/17 01/08/17 01/08/17 23:40 05:00 05:00 WBC 27.4 H RBC 2.27 L Hgb 6.1 L Hct 20.4 L MCV MCH 27 L MCHC RDW 17.8 H Plt Count Lymph % (Auto) Osborne % (Auto) Lymph # Osborne # Baso # Seg Neutrophils % Seg Neuts % (Manual) Lymphocytes % (Manual) Monocytes % (Manual) Eosinophils % (Manual) Basophils % (Manual) Nucleated RBC % Seg Neutrophils # Seg Neutrophils # Man Lymphocytes # (Manual) Monocytes # (Manual) Eosinophils # (Manual) Basophils # (Manual) PT INR Fibrinogen dRVVT Confirm Interp Factor V Activity POC ABG pH POC ABG pCO2 POC ABG pO2 ABG pO2 ABG HCO3 ABG Base Excess ABG Hemoglobin Oxyhemoglobin Sodium Potassium Chloride Carbon Dioxide 16 L D BUN 62 H Creatinine 1.6 H D Glucose 103 H POC Glucose 135 H Lactic Acid Calcium Phosphorus Magnesium Direct Bilirubin AST ALT Alkaline Phosphatase Lactate Dehydrogenase Troponin T C-Reactive Protein Total Protein Albumin Prealbumin Triglycerides Cholesterol LDL Cholesterol Direct HDL Cholesterol Urine pH Urine WBC (Auto) Urine Creatinine Urine Total Protein Fluid Total Protein Vancomycin Trough Rheumatoid Factor Complement C4 Miscellaneous Test Crossmatch 01/08/17 01/08/17 01/08/17 05:25 10:37 10:37 WBC RBC Hgb Hct MCV MCH MCHC RDW Plt Count Lymph % (Auto) Osborne % (Auto) Lymph # Osborne # Baso # Seg Neutrophils % Seg Neuts % (Manual) Lymphocytes % (Manual) Monocytes % (Manual) Eosinophils % (Manual) Basophils % (Manual) Nucleated RBC % Seg Neutrophils # Seg Neutrophils # Man Lymphocytes # (Manual) Monocytes # (Manual) Eosinophils # (Manual) Basophils # (Manual) PT INR Fibrinogen dRVVT Confirm Interp Factor V Activity POC ABG pH POC ABG pCO2 POC ABG pO2 ABG pO2 ABG HCO3 ABG Base Excess ABG Hemoglobin Oxyhemoglobin Sodium Potassium Chloride Carbon Dioxide BUN Creatinine Glucose POC Glucose 106 H Lactic Acid Calcium Phosphorus Magnesium Direct Bilirubin AST ALT Alkaline Phosphatase Lactate Dehydrogenase Troponin T C-Reactive Protein 24.40 H Total Protein Albumin Prealbumin Triglycerides Cholesterol LDL Cholesterol Direct HDL Cholesterol Urine pH Urine WBC (Auto) Urine Creatinine Urine Total Protein Fluid Total Protein Vancomycin Trough Rheumatoid Factor Complement C4 Miscellaneous Test Crossmatch See Detail 01/08/17 01/08/17 01/08/17 10:37 11:33 15:15 WBC RBC Hgb Hct MCV MCH MCHC RDW Plt Count Lymph % (Auto) Osborne % (Auto) Lymph # [place] # Baso # Seg Neutrophils % Seg Neuts % (Manual) Lymphocytes % (Manual) Monocytes % (Manual) Eosinophils % (Manual) Basophils % (Manual) Nucleated RBC % Seg Neutrophils # Seg Neutrophils # Man Lymphocytes # (Manual) Monocytes # (Manual) Eosinophils # (Manual) Basophils # (Manual) PT INR Fibrinogen dRVVT Confirm Interp Factor V Activity POC ABG pH POC ABG pCO2 POC ABG pO2 ABG pO2 ABG HCO3 ABG Base Excess ABG Hemoglobin Oxyhemoglobin Sodium Potassium Chloride Carbon Dioxide BUN Creatinine Glucose POC Glucose 157 H Lactic Acid 9.70 H* 9.10 H* Calcium Phosphorus Magnesium Direct Bilirubin AST ALT Alkaline Phosphatase Lactate Dehydrogenase Troponin T C-Reactive Protein Total Protein Albumin Prealbumin Triglycerides Cholesterol LDL Cholesterol Direct HDL Cholesterol Urine pH Urine WBC (Auto) Urine Creatinine Urine Total Protein Fluid Total Protein Vancomycin Trough Rheumatoid Factor Complement C4 Miscellaneous Test Crossmatch 01/08/17 01/08/17 01/09/17 17:19 23:12 04:40 WBC RBC Hgb Hct MCV MCH MCHC RDW Plt Count Lymph % (Auto) Osborne % (Auto) Lymph # [place] # Baso # Seg Neutrophils % Seg Neuts % (Manual) Lymphocytes % (Manual) Monocytes % (Manual) Eosinophils % (Manual) Basophils % (Manual) Nucleated RBC % Seg Neutrophils # Seg Neutrophils # Man Lymphocytes # (Manual) Monocytes # (Manual) Eosinophils # (Manual) Basophils # (Manual) PT INR Fibrinogen dRVVT Confirm Interp Factor V Activity POC ABG pH POC ABG pCO2 POC ABG pO2 ABG pO2 ABG HCO3 ABG Base Excess ABG Hemoglobin Oxyhemoglobin Sodium 147 H Potassium Chloride Carbon Dioxide BUN 82 H Creatinine 1.8 H Glucose 137 H POC Glucose 164 H 157 H Lactic Acid Calcium Phosphorus Magnesium Direct Bilirubin AST ALT Alkaline Phosphatase Lactate Dehydrogenase Troponin T C-Reactive Protein Total Protein Albumin Prealbumin Triglycerides Cholesterol LDL Cholesterol Direct HDL Cholesterol Urine pH Urine WBC (Auto) Urine Creatinine Urine Total Protein Fluid Total Protein Vancomycin Trough Rheumatoid Factor Complement C4 Miscellaneous Test Crossmatch 01/09/17 01/09/17 01/09/17 05:42 08:22 10:57 WBC RBC Hgb Hct MCV MCH MCHC RDW Plt Count Lymph % (Auto) Osborne % (Auto) Lymph # [place] # Baso # Seg Neutrophils % Seg Neuts % (Manual) Lymphocytes % (Manual) Monocytes % (Manual) Eosinophils % (Manual) Basophils % (Manual) Nucleated RBC % Seg Neutrophils # Seg Neutrophils # Man Lymphocytes # (Manual) Monocytes # (Manual) Eosinophils # (Manual) Basophils # (Manual) PT INR Fibrinogen dRVVT Confirm Interp Factor V Activity POC ABG pH POC ABG pCO2 POC ABG pO2 ABG pO2 ABG HCO3 ABG Base Excess ABG Hemoglobin Oxyhemoglobin Sodium Potassium Chloride Carbon Dioxide BUN Creatinine Glucose POC Glucose 156 H 122 H Lactic Acid 2.30 H* Calcium Phosphorus Magnesium Direct Bilirubin AST ALT Alkaline Phosphatase Lactate Dehydrogenase Troponin T C-Reactive Protein Total Protein Albumin Prealbumin Triglycerides Cholesterol LDL Cholesterol Direct HDL Cholesterol Urine pH Urine WBC (Auto) Urine Creatinine Urine Total Protein Fluid Total Protein Vancomycin Trough Rheumatoid Factor Complement C4 Miscellaneous Test Crossmatch 01/09/17 01/09/17 01/10/17 13:30 17:14 01:21 WBC RBC Hgb Hct MCV MCH MCHC RDW Plt Count Lymph % (Auto) Osborne % (Auto) Lymph # [place] # Baso # Seg Neutrophils % Seg Neuts % (Manual) Lymphocytes % (Manual) Monocytes % (Manual) Eosinophils % (Manual) Basophils % (Manual) Nucleated RBC % Seg Neutrophils # Seg Neutrophils # Man Lymphocytes # (Manual) Monocytes # (Manual) Eosinophils # (Manual) Basophils # (Manual) PT INR Fibrinogen dRVVT Confirm Interp Factor V Activity POC ABG pH POC ABG pCO2 POC ABG pO2 ABG pO2 ABG HCO3 ABG Base Excess ABG Hemoglobin Oxyhemoglobin Sodium Potassium Chloride Carbon Dioxide BUN Creatinine Glucose POC Glucose 127 H 160 H Lactic Acid Calcium Phosphorus Magnesium Direct Bilirubin AST ALT Alkaline Phosphatase Lactate Dehydrogenase Troponin T C-Reactive Protein 24.70 H Total Protein Albumin Prealbumin Triglycerides Cholesterol LDL Cholesterol Direct HDL Cholesterol Urine pH Urine WBC (Auto) Urine Creatinine Urine Total Protein Fluid Total Protein Vancomycin Trough Rheumatoid Factor Complement C4 Miscellaneous Test Crossmatch 01/10/17 01/10/17 01/10/17 04:00 04:00 05:36 WBC 18.1 H RBC 3.22 L Hgb 8.8 L Hct 27.0 L D MCV MCH 27 L MCHC RDW 17.0 H Plt Count Lymph % (Auto) [place] % (Auto) Lymph # [place] # Baso # Seg Neutrophils % Seg Neuts % (Manual) Lymphocytes % (Manual) Monocytes % (Manual) Eosinophils % (Manual) Basophils % (Manual) Nucleated RBC % Seg Neutrophils # Seg Neutrophils # Man Lymphocytes # (Manual) Monocytes # (Manual) Eosinophils # (Manual) Basophils # (Manual) PT INR Fibrinogen dRVVT Confirm Interp Factor V Activity POC ABG pH POC ABG pCO2 POC ABG pO2 ABG pO2 ABG HCO3 ABG Base Excess ABG Hemoglobin Oxyhemoglobin Sodium Potassium Chloride Carbon Dioxide BUN 59 H Creatinine 1.3 H Glucose 122 H POC Glucose 163 H Lactic Acid Calcium Phosphorus Magnesium Direct Bilirubin AST ALT Alkaline Phosphatase Lactate Dehydrogenase Troponin T C-Reactive Protein Total Protein Albumin Prealbumin Triglycerides Cholesterol LDL Cholesterol Direct HDL Cholesterol Urine pH Urine WBC (Auto) Urine Creatinine Urine Total Protein Fluid Total Protein Vancomycin Trough Rheumatoid Factor Complement C4 Miscellaneous Test Crossmatch 01/10/17 01/10/17 01/11/17 12:14 17:55 00:09 WBC RBC Hgb Hct MCV MCH MCHC RDW Plt Count Lymph % (Auto) [place] % (Auto) Lymph # [place] # Baso # Seg Neutrophils % Seg Neuts % (Manual) Lymphocytes % (Manual) Monocytes % (Manual) Eosinophils % (Manual) Basophils % (Manual) Nucleated RBC % Seg Neutrophils # Seg Neutrophils # Man Lymphocytes # (Manual) Monocytes # (Manual) Eosinophils # (Manual) Basophils # (Manual) PT INR Fibrinogen dRVVT Confirm Interp Factor V Activity POC ABG pH POC ABG pCO2 POC ABG pO2 ABG pO2 ABG HCO3 ABG Base Excess ABG Hemoglobin Oxyhemoglobin Sodium Potassium Chloride Carbon Dioxide BUN Creatinine Glucose POC Glucose 120 H 144 H 122 H Lactic Acid Calcium Phosphorus Magnesium Direct Bilirubin AST ALT Alkaline Phosphatase Lactate Dehydrogenase Troponin T C-Reactive Protein Total Protein Albumin Prealbumin Triglycerides Cholesterol LDL Cholesterol Direct HDL Cholesterol Urine pH Urine WBC (Auto) Urine Creatinine Urine Total Protein Fluid Total Protein Vancomycin Trough Rheumatoid Factor Complement C4 Miscellaneous Test Crossmatch 01/11/17 01/11/17 04:00 04:00 WBC 15.8 H RBC 3.04 L Hgb 8.2 L Hct 25.5 L MCV MCH 27 L MCHC RDW 17.3 H Plt Count Lymph % (Auto) [place] % (Auto) Lymph # [place] # Baso # Seg Neutrophils % Seg Neuts % (Manual) Lymphocytes % (Manual) Monocytes % (Manual) Eosinophils % (Manual) Basophils % (Manual) Nucleated RBC % Seg Neutrophils # Seg Neutrophils # Man Lymphocytes # (Manual) Monocytes # (Manual) Eosinophils # (Manual) Basophils # (Manual) PT INR Fibrinogen dRVVT Confirm Interp Factor V Activity POC ABG pH POC ABG pCO2 POC ABG pO2 ABG pO2 ABG HCO3 ABG Base Excess ABG Hemoglobin Oxyhemoglobin Sodium Potassium Chloride Carbon Dioxide BUN 78 H Creatinine 1.6 H Glucose 109 H POC Glucose Lactic Acid Calcium Phosphorus Magnesium Direct Bilirubin AST ALT Alkaline Phosphatase Lactate Dehydrogenase Troponin T C-Reactive Protein Total Protein Albumin Prealbumin Triglycerides Cholesterol LDL Cholesterol Direct HDL Cholesterol Urine pH Urine WBC (Auto) Urine Creatinine Urine Total Protein Fluid Total Protein Vancomycin Trough Rheumatoid Factor Complement C4 Miscellaneous Test Crossmatch Allied health notes reviewed: RT
[2017-01-11] MEDS: APRESOLINE PO SCH ×2 (12:29→22:00)
[2017-01-11] MEDS: CORDARONE PO SCH ×2 (12:30→21:48)
[2017-01-11] MEDS: REGLAN IV SCH ×2 (12:30→21:48)
[2017-01-11] MEDS: NORVASC PO SCH (12:33)
--- NOTE | 2017-01-11 12:46 | Progress Note ---
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 Epogen 20k TIW * Dose medications for renal function * Avoid potential nephrotoxins * Rate control per cardiology * Vent management per pulm/CCM * Pressors prn for MAP>65 Subjective Date of service: 01/11/17 Principal diagnosis: Acute resp failure on MVS; S/P Acute CVA; Acute Encephalopathy; JUANITA Interval history: new events from last pm noted Objective - Exam Narrative Exam: Gen. appearance: Patient lying in bed, no apparent distress, 4. restraints HEENT: Normocephalic, atraumatic, pupils equally round and reactive to light, extraocular movement intact, and no sclericterus,. No JVD or thyromegaly or nodule,neck supple, no carotid bruit ,mucous membranes moist, unable to examine oral cavity Heart: S1, S2, regular rate and rhythm Lungs: Clear to auscultation bilaterally, breathing comfortable Abdomen: Positive bowel sounds, nontender, nondistended, no organomegaly Extremity: No edema, cyanosis, clubbing Skin: No rash, nodules, warm, dry Neuro: Difficult to assess, facial droop, moves all 4 extremities - Vital Signs Vital signs: Vital Signs - 12hr 01/11/17 01/11/17 01/11/17 01:00 01:30 01:48 Temperature Pulse Rate 97 H 98 H Pulse Rate [ 99 H Bilateral Throughout] Respiratory 16 22 Rate Respiratory 12 Rate [Bilateral Throughout] Blood Pressure 124/67 100/61 O2 Sat by Pulse 100 99 Oximetry O2 Sat by Pulse Oximetry [ Bilateral Throughout] 01/11/17 01/11/17 01/11/17 01:55 02:00 02:30 Temperature Pulse Rate 106 H 105 H Pulse Rate [ 103 H Bilateral Throughout] Respiratory 28 H 27 H Rate Respiratory 12 Rate [Bilateral Throughout] Blood Pressure 126/73 124/68 O2 Sat by Pulse 99 99 Oximetry O2 Sat by Pulse Oximetry [ Bilateral Throughout] 01/11/17 01/11/17 01/11/17 03:00 03:30 04:00 Temperature 98.6 F Pulse Rate 106 H 108 H 114 H Pulse Rate [ Bilateral Throughout] Respiratory 26 H 27 H 16 Rate Respiratory Rate [Bilateral Throughout] Blood Pressure 110/62 115/62 110/58 O2 Sat by Pulse 98 98 100 Oximetry O2 Sat by Pulse Oximetry [ Bilateral Throughout] 01/11/17 01/11/17 01/11/17 04:30 04:49 05:00 Temperature Pulse Rate 110 H 99 H 107 H Pulse Rate [ Bilateral Throughout] Respiratory 21 28 H Rate Respiratory Rate [Bilateral Throughout] Blood Pressure 106/57 103/54 107/59 O2 Sat by Pulse 99 99 95 Oximetry O2 Sat by Pulse Oximetry [ Bilateral Throughout] 01/11/17 01/11/17 01/11/17 05:26 05:30 06:00 Temperature Pulse Rate 107 H 106 H 108 H Pulse Rate [ Bilateral Throughout] Respiratory 30 H 28 H Rate Respiratory Rate [Bilateral Throughout] Blood Pressure 112/62 107/66 115/67 O2 Sat by Pulse 94 96 Oximetry O2 Sat by Pulse Oximetry [ Bilateral Throughout] 01/11/17 01/11/17 01/11/17 06:30 07:00 07:30 Temperature Pulse Rate 111 H 109 H 110 H Pulse Rate [ Bilateral Throughout] Respiratory 27 H 28 H 28 H Rate Respiratory Rate [Bilateral Throughout] Blood Pressure 121/77 109/61 114/54 O2 Sat by Pulse 96 98 97 Oximetry O2 Sat by Pulse Oximetry [ Bilateral Throughout] 01/11/17 01/11/17 01/11/17 08:44 08:47 08:52 Temperature Pulse Rate 111 H 107 H 111 H Pulse Rate [ Bilateral Throughout] Respiratory 37 H Rate Respiratory Rate [Bilateral Throughout] Blood Pressure 129/72 110/64 110/64 O2 Sat by Pulse 100 100 100 Oximetry O2 Sat by Pulse Oximetry [ Bilateral Throughout] 01/11/17 01/11/17 01/11/17 08:55 09:00 09:03 Temperature 97.8 F Pulse Rate 109 H Pulse Rate [ 109 H 110 H Bilateral Throughout] Respiratory 23 Rate Respiratory 22 18 Rate [Bilateral Throughout] Blood Pressure 119/67 O2 Sat by Pulse Oximetry O2 Sat by Pulse 100 Oximetry [ Bilateral Throughout] 01/11/17 01/11/17 01/11/17 09:15 09:30 09:45 Temperature Pulse Rate 109 H 110 H 109 H Pulse Rate [ Bilateral Throughout] Respiratory Rate Respiratory Rate [Bilateral Throughout] Blood Pressure 119/67 100/62 107/57 O2 Sat by Pulse Oximetry O2 Sat by Pulse Oximetry [ Bilateral Throughout] 01/11/17 01/11/17 01/11/17 09:59 10:14 10:30 Temperature Pulse Rate 112 H 110 H 111 H Pulse Rate [ Bilateral Throughout] Respiratory Rate Respiratory Rate [Bilateral Throughout] Blood Pressure 97/58 111/69 102/69 O2 Sat by Pulse Oximetry O2 Sat by Pulse Oximetry [ Bilateral Throughout] 01/11/17 01/11/17 01/11/17 10:45 11:00 11:15 Temperature Pulse Rate 110 H 110 H 115 H Pulse Rate [ Bilateral Throughout] Respiratory Rate Respiratory Rate [Bilateral Throughout] Blood Pressure 103/62 100/70 106/75 O2 Sat by Pulse Oximetry O2 Sat by Pulse Oximetry [ Bilateral Throughout] 01/11/17 01/11/17 01/11/17 11:27 11:30 11:45 Temperature Pulse Rate 109 H 109 H 112 H Pulse Rate [ Bilateral Throughout] Respiratory Rate Respiratory Rate [Bilateral Throughout] Blood Pressure 106/75 101/68 93/66 O2 Sat by Pulse 100 Oximetry O2 Sat by Pulse Oximetry [ Bilateral Throughout] 01/11/17 01/11/17 01/11/17 12:02 12:15 12:26 Temperature 97.8 F Pulse Rate 107 H 109 H 108 H Pulse Rate [ Bilateral Throughout] Respiratory 24 Rate Respiratory Rate [Bilateral Throughout] Blood Pressure 97/65 100/67 100/67 O2 Sat by Pulse Oximetry O2 Sat by Pulse 100 Oximetry [ Bilateral Throughout] - Lab 01/11/17 04:00 01/11/17 04:00 Most recent lab results ABG pH 7.450 pH Units (7.350-7.450) 12/05/16 Unknown ABG pCO2 29.6 mm Hg 12/05/16 Unknown ABG pO2 75.2 mm Hg (80.0-90.0) L 12/05/16 Unknown ABG HCO3 20.1 mmol/L (20.0-26.0) 12/05/16 Unknown ABG O2 Saturation 96.8 % (95.0-99.0) 12/05/16 Unknown Calcium 9.6 mg/dL (8.4-10.2) 01/11/17 04:00 Phosphorus 2.60 mg/dL (2.5-4.5) 01/11/17 04:00 Magnesium 2.00 mg/dL (1.7-2.3) 01/11/17 04:00 Urine Creatinine 19.7 mg/dL (0.1-20.0) 11/12/16 10:18 Urine Sodium 36 mEq/L 09/16/16 19:19 Urine Total Protein 16 mg/dL (5-11.8) H 09/16/16 19:19
--- NOTE | 2017-01-11 16:46 | Progress Note ---
Assessment and Plan Assessment and plan: Patient is 46-year-old woman with a history of hypertension, diabetes mellitus, asthma, hyperlipidemia, chronic kidney disease and anxiety, who was brought in by family because she couldn't get her words out, her face was also twisted, she was admitted for acute CVA and accelerated hypertension, she had a hx of poor adherence with her medications, and uncontrolled htn. Patient's SBP on admission was noted be greater than 260. TPA was started but this it was discontinued after 5 minutes because her blood pressure became uncontrolled. The TPA was not initiated again because the patient was outside the TPA window. Patient has had a prolonged hospital stay complicated with recurrent severe sepsis. Patient with most recent event also status post cardiac arrest on and received CPR. -Severe Sepsis with septic shock (shock resolved) Patient with multiple episodes of sepsis. Initial episode due to presumed aspiration pneumonia and septic episode on 09/23 from candidemia, then a third episode from peritonitis from gastric perforation from dislodged PEG +/-UTI. Patient was also noted to have had Candidemia with Blood cultures positive for Silvia albicans 09/23, 09/25 but negative on 09/30. Antibiotic discontinued on 12/05 per ID. patient is s/p R thoracentesis on 11/14, 240cc of serous fluid removed, cx of fluid was negative. Also, Stool negative for C. difficile -Surgical wound infection/gram-negative sepsis/candidemia/peritonitis/fungemia. Continue wound care to ostomy sites -Acute hypoxic respiratory failure, status post tracheostomy Patient placed back on ventilation. Patient currently with CPAP mode. Patient failed T-piece trials. Tracheostomy tube leak. Pulmonary following -Acute massive CVA with mass effect; continue antiplatelets and statins CT showed continued evolution of left MCA infarct with slight mass effect and edema, and there is no hemorrhage -PRINCE showed hyperdynamic ventricle with ef of 75%, neither clot nor septal defect seen -MRA Brain shows near complete occlusion of M2 and M3 of the left MCA carotid doppler negative -Echo shows preserved systolic function but does show some left ventricular diastolic dysfunction -continue asa and statin -Oliguric acute kidney injury. Etiology secondary to ATN on CKD. Baseline creatinine is approximately 1.7. -Dislodged PEG tube: Status post repair of gastric perforation which wedge gastrectomy -Paroxysmal atrial fibrillation with rapid ventricular rate, failed cardioversion Continue current medications, Not a candidate for anticoagulation secondary to anemia, thrombocytopenia and massive CVA -Anemia; probably secondary to GI bleeding Patient received multiple units of PRBC in the past, hemoglobin currently stable -Toxic metabolic encephalopathy; supportive care -Diabetes mellitus type 2, Insulin/SSI -Severe protein caloric malnutrition, cont TPN -s/p Thrombocytopenia. Now resolved -DVT prophylaxis, SCDs, no pharmacological agent given anemia , thrombocytopenia , massive stroke -Full code status, very poor prognosis now on TPN 12/18/16: yesterday pt became hypotensive after dialysis and Vasopressin was started by Dr. Lara. She was given iv hydralazine overnight. She is still on Vasopressin, now back in AFib/aflutter with RVR. i d/w Dr. Rollins who recommends iv amiodarone drip without bolus. I also spoke with [facility], Dr. De Leon. per Dr. Rollins: Paroxysmal Afib s/p failed cardioversion on 09/25 on IV lopressor for suppression considered not a candidate for anticoagulation due to severe anemia requiring blood transfusion 12/19/16: still on vasopressin, convert back to sinus, not on Amiodarone. Still on TPN, reorder restraints 01/09/17: I am back on Ms. العراقي' care team Ethics consult pending, family refuse hospice, Insurance denied LTACH When abdominal wound heals, ?place PEG and send to custodial. Patient now on recurrent anemia requiring 2 units packed red blood cell: ccm is following Severe Leukocytosis, re-consulted ID. If leukocytosis is not improving should repeat CT abdomen and pelvis to rule out ischemic bowel==>not done, Cr increased to 1.8 today. Will repeat labs in am The high probability of a clinically significant, sudden or life threatening deterioration of the [neurologic, CV] system(s) required my full and direct attention, intervention and personal management. The aggregate critical care time was [32] minutes. This time is in addition to time spent performing reported procedures but includes the following: [x] Data Review and interpretation [x] Patient assessment and monitoring of vital signs [x] Documentation [x] Medication orders and management 01/10/17 Cr has increase, will check electrolytes. Ethics committee awaiting for family meeting but some family has not provided [place], case management available times. Hopefully, after the 01/11/17 Hemodialysis today, no change. History Interval history: Patient seen and examined. Follow up on current diagnosis/respiratory failure. Still unresponsive, Imaging, old records, testing, labs, nursing notes reviewed. Hospitalist Physical - Physical exam Narrative exam: GEN: Ill appearing, trach, staring, in vegatative state NECK: SUPPLE, trach in place, ngt in place CVS: regular currently NORMAL S1S2 LUNGS/CHEST: NORMAL CHEST EXPANSION B, GOOD AIR ENTRY B ABD: SOFT, NTND, 3 ostomy bags in 3 different locations, GBS, NO REBOUND OR GUARDING EXT/SKIN: NO SIGNIFICANT EDEMA OR RASH MSK: no spontaneous movement NEURO: CN 2-12 GROSSLY INTACT, on a ventilator PSY: Comatose, - Constitutional Vitals: Temp Pulse Resp BP Pulse Ox 97.8 F 102 H 24 129/81 99 01/11/17 12:26 01/11/17 16:30 01/11/17 16:30 01/11/17 16:30 01/11/17 16:30 General appearance: Present: no acute distress, well-nourished, obese Results - Labs CBC & Chem 7: 01/11/17 04:00 01/11/17 04:00 Labs: Laboratory Last Values WBC 15.8 K/mm3 (4.5-11.0) H 01/11/17 04:00 RBC 3.04 M/mm3 (3.65-5.03) L 01/11/17 04:00 Hgb 8.2 gm/dl (10.1-14.3) L 01/11/17 04:00 Hct 25.5 % (30.3-42.9) L 01/11/17 04:00 MCV 84 fl (79-97) 01/11/17 04:00 MCH 27 pg (28-32) L 01/11/17 04:00 MCHC 32 % (30-34) 01/11/17 04:00 RDW 17.3 % (13.2-15.2) H 01/11/17 04:00 Plt Count 305 K/mm3 (140-440) 01/11/17 04:00 Lymph % (Auto) 18.5 % (13.4-35.0) 01/03/17 05:00 [place] % (Auto) 10.0 % (0.0-7.3) H 01/03/17 05:00 Eos % (Auto) 0.5 % (0.0-4.3) 01/03/17 05:00 Baso % (Auto) 0.5 % (0.0-1.8) 01/03/17 05:00 Lymph # 2.1 K/mm3 (1.2-5.4) 01/03/17 05:00 [place] # 1.1 K/mm3 (0.0-0.8) H 01/03/17 05:00 Eos # 0.1 K/mm3 (0.0-0.4) 01/03/17 05:00 Baso # 0.1 K/mm3 (0.0-0.1) 01/03/17 05:00 Add Manual Diff Complete 12/19/16 05:02 Total Counted 100 12/19/16 05:02 Seg Neutrophils % 70.5 % (40.0-70.0) H 01/03/17 05:00 Seg Neuts % (Manual) 64.0 % (40.0-70.0) 12/19/16 05:02 Band Neutrophils % 15.0 % 12/19/16 05:02 Lymphocytes % (Manual) 13.0 % (13.4-35.0) L 12/19/16 05:02 Reactive Lymphs % (Man) 0 % 12/19/16 05:02 Monocytes % (Manual) 7.0 % (0.0-7.3) 12/19/16 05:02 Eosinophils % (Manual) 0 % (0.0-4.3) 12/19/16 05:02 Basophils % (Manual) 1.0 % (0.0-1.8) 12/19/16 05:02 Metamyelocytes % 0 % 12/19/16 05:02 Myelocytes % 0 % 12/19/16 05:02 Promyelocytes % 0 % 12/19/16 05:02 Blast Cells % 0 % 12/19/16 05:02 Nucleated RBC % 1.0 % (0.0-0.9) H 12/19/16 05:02 Seg Neutrophils # 7.9 K/mm3 (1.8-7.7) H 01/03/17 05:00 Seg Neutrophils # Man 12.9 K/mm3 (1.8-7.7) H 12/19/16 05:02 Band Neutrophils # 3.0 K/mm3 12/19/16 05:02 Lymphocytes # (Manual) 2.6 K/mm3 (1.2-5.4) 12/19/16 05:02 Abs React Lymphs (Man) 0.0 K/mm3 12/19/16 05:02 Monocytes # (Manual) 1.4 K/mm3 (0.0-0.8) H 12/19/16 05:02 Eosinophils # (Manual) 0.0 K/mm3 (0.0-0.4) 12/19/16 05:02 Basophils # (Manual) 0.2 K/mm3 (0.0-0.1) H 12/19/16 05:02 Metamyelocytes # 0.0 K/mm3 12/19/16 05:02 Myelocytes # 0.0 K/mm3 12/19/16 05:02 Promyelocytes # 0.0 K/mm3 12/19/16 05:02 Blast Cells # 0.0 K/mm3 12/19/16 05:02 Pathologist Review 09/13/16 04:00 WBC Morphology Not Reportable 12/19/16 05:02 Hypersegmented Neuts Not Reportable 12/19/16 05:02 Hyposegmented Neuts Not Reportable 12/19/16 05:02 Hypogranular Neuts Not Reportable 12/19/16 05:02 Smudge Cells Not Reportable 12/19/16 05:02 Toxic Granulation Not Reportable 12/19/16 05:02 Toxic Vacuolation Not Reportable 12/19/16 05:02 Dohle Bodies Not Reportable 12/19/16 05:02 Pelger-Huet Anomaly Not Reportable 12/19/16 05:02 Jasmina Rods Not Reportable 12/19/16 05:02 Platelet Estimate Consistent w auto 12/19/16 05:02 Clumped Platelets Not Reportable 12/19/16 05:02 Plt Clumps, EDTA Not Reportable 12/19/16 05:02 Large Platelets Not Reportable 12/19/16 05:02 Giant Platelets Not Reportable 12/19/16 05:02 Platelet Satelliting Not Reportable 12/19/16 05:02 Plt Morphology Comment Not Reportable 12/19/16 05:02 RBC Morphology Not Reportable 12/19/16 05:02 Dimorphic RBCs Not Reportable 12/19/16 05:02 Polychromasia Not Reportable 12/19/16 05:02 Hypochromasia Not Reportable 12/19/16 05:02 Poikilocytosis Not Reportable 12/19/16 05:02 Anisocytosis Not Reportable 12/19/16 05:02 Microcytosis Not Reportable 12/19/16 05:02 Macrocytosis Not Reportable 12/19/16 05:02 Spherocytes Not Reportable 12/19/16 05:02 Pappenheimer Bodies Not Reportable 12/19/16 05:02 Sickle Cells Not Reportable 12/19/16 05:02 Target Cells Few 12/19/16 05:02 Tear Drop Cells Not Reportable 12/19/16 05:02 Ovalocytes Not Reportable 12/19/16 05:02 Stomatocytes Rare 12/03/16 04:00 Helmet Cells Not Reportable 12/19/16 05:02 Monet-Huetter Bodies Not Reportable 12/19/16 05:02 Edmondson Rings Not Reportable 12/19/16 05:02 Sentinel Cells Not Reportable 12/19/16 05:02 Bite Cells Not Reportable 12/19/16 05:02 Crenated Cell Not Reportable 12/19/16 05:02 Elliptocytes Not Reportable 12/19/16 05:02 Acanthocytes (Spur) Not Reportable 12/19/16 05:02 Rouleaux Not Reportable 12/19/16 05:02 Hemoglobin C Crystals Not Reportable 12/19/16 05:02 Schistocytes Not Reportable 12/19/16 05:02 Malaria parasites Not Reportable 12/19/16 05:02 ESR > 140.0 mm/Hr (0-20) 09/08/16 11:48 Jun Bodies Not Reportable 12/19/16 05:02 Hem Pathologist Commnt No 12/19/16 05:02 PT 16.1 Sec. (12.2-14.9) H 12/28/16 08:30 INR 1.23 (0.87-1.13) H 12/28/16 08:30 APTT 33.0 Sec. (24.2-36.6) 10/09/16 03:45 Thrombin Time 16.8 Sec. (15.1-19.6) 09/03/16 00:10 Fibrinogen 750 mg/dl (211-480) H 09/08/16 11:48 Lupus Anticoagulant see below 09/12/16 09:59 LA PTT Baseline See scanned report 09/12/16 09:59 dRVVT Confirm Interp Positive (Negative) H 09/12/16 09:59 dRVVT Screen 50:50 See scanned report 09/12/16 09:59 dRVVT Mix Interpret See scanned report 09/12/16 09:59 Protein C Antigen 122 % (70-140) 09/08/16 15:35 Free Protein S 97 % normal (50-147) 09/08/16 15:35 Total Protein S 109 % (70-140) 09/08/16 15:35 Antithrombin III Ag 100 % (80-120) 09/08/16 15:35 Heparin Anti-Xa, Unfract Negative (Negative) 09/29/16 13:35 Factor V Activity 182 % (65-150) H 09/08/16 15:35 POC ABG pH 7.503 (7.35-7.45) H 12/19/16 09:36 ABG pH 7.450 pH Units (7.350-7.450) 12/05/16 Unknown POC ABG pCO2 30.1 (35-45) L 12/19/16 09:36 ABG pCO2 29.6 mm Hg 12/05/16 Unknown POC ABG pO2 85 (80-105) 12/19/16 09:36 ABG pO2 75.2 mm Hg (80.0-90.0) L 12/05/16 Unknown POC ABG HCO3 23.6 12/19/16 09:36 ABG HCO3 20.1 mmol/L (20.0-26.0) 12/05/16 Unknown POC ABG Total CO2 25 12/19/16 09:36 POC ABG O2 Sat 97 12/19/16 09:36 ABG O2 Saturation 96.8 % (95.0-99.0) 12/05/16 Unknown ABG O2 Content 9.9 (0.0-44) 12/05/16 Unknown POC ABG Base Excess 1 12/19/16 09:36 ABG Base Excess -3.4 mmol/L (-2.0-3.0) L 12/05/16 Unknown ABG Hemoglobin 7.4 gm/dl (12.0-16.0) L 12/05/16 Unknown ABG Carboxyhemoglobin 1.8 % (0.0-5.0) 12/05/16 Unknown ABG Methemoglobin 0.6 % (0.0-1.5) 12/05/16 Unknown Oxyhemoglobin 94.5 % (95.0-99.0) L 12/05/16 Unknown FiO2 28 % 12/19/16 09:36 Sodium 141 mmol/L (137-145) 01/11/17 04:00 Potassium 3.8 mmol/L (3.6-5.0) 01/11/17 04:00 Chloride 102.4 mmol/L (98-107) 01/11/17 04:00 Carbon Dioxide 25 mmol/L (22-30) 01/11/17 04:00 Anion Gap 17 mmol/L 01/11/17 04:00 BUN 78 mg/dL (7-17) H 01/11/17 04:00 Creatinine 1.6 mg/dL (0.7-1.2) H 01/11/17 04:00 Estimated GFR 42 ml/min 01/11/17 04:00 BUN/Creatinine Ratio 49 % 01/11/17 04:00 Glucose 109 mg/dL (65-100) H 01/11/17 04:00 POC Glucose 122 (70-105) H 01/11/17 00:09 Osmolality 351 Mosm/kg 09/16/16 11:47 Lactic Acid 2.30 mmol/L (0.7-2.0) H* 01/09/17 08:22 Calcium 9.6 mg/dL (8.4-10.2) 01/11/17 04:00 Phosphorus 2.60 mg/dL (2.5-4.5) 01/11/17 04:00 Magnesium 2.00 mg/dL (1.7-2.3) 01/11/17 04:00 Total Bilirubin 0.50 mg/dL (0.1-1.2) 01/01/17 05:00 Direct Bilirubin 0.3 mg/dL (0-0.2) H 10/10/16 05:00 Indirect Bilirubin 0.1 mg/dL 10/10/16 05:00 AST 35 units/L (5-40) 01/01/17 05:00 ALT 51 units/L (7-56) 01/01/17 05:00 Alkaline Phosphatase 536 units/L (35-129) H 01/01/17 05:00 Ammonia 27.0 umol/L (25-60) 09/07/16 08:37 Lactate Dehydrogenase 196 units/L (91-180) H 11/11/16 06:59 Total Creatine Kinase 121 units/L (30-135) 09/29/16 20:12 CK-MB (CK-2) < 1.0 ng/mL (0.0-4.0) 09/29/16 20:12 CK-MB (CK-2) Rel Index 0.8 (0-4) 09/29/16 20:12 Troponin T 0.204 ng/mL (0.00-0.029) H* 09/29/16 20:12 C-Reactive Protein 24.70 mg/dL (0.00-1.30) H 01/09/17 13:30 Total Protein 6.3 g/dL (6.3-8.2) 01/01/17 05:00 Albumin 1.5 g/dL (3.9-5) L 01/01/17 05:00 Albumin/Globulin Ratio 0.3 % 01/01/17 05:00 Prealbumin 0.110 g/L (0.200-0.400) L 12/29/16 05:15 Triglycerides 137 mg/dL (2-149) 09/29/16 20:12 Cholesterol 31 mg/dL (50-199) L 09/29/16 20:12 LDL Cholesterol Direct 4 mg/dL (50-130) L 09/29/16 20:12 HDL Cholesterol 3 mg/dL (40-59) L 09/29/16 20:12 Cholesterol/HDL Ratio 10.33 % 09/29/16 20:12 Angiotensin Convert Enz See scanned report 09/08/16 11:48 Renin 0.99 ng/mL/h (0.25-5.82) 10/07/16 10:56 Aldosterone <1 ng/dL () 10/07/16 10:56 Aldosterone/Renin Dir see below 10/07/16 10:56 Serotonin Release Assay See scanned report 09/29/16 13:35 TSH 1.010 mlU/mL (0.270-4.200) 09/07/16 08:37 HCG, Qual Negative (Negative) 09/03/16 00:10 Urine Color Yellow (Yellow) 11/05/16 13:09 Urine Turbidity Clear (Clear) 11/05/16 13:09 Urine pH 9.0 (5.0-7.0) H 11/05/16 13:09 Ur Specific [place] 1.011 (1.003-1.030) 11/05/16 13:09 Urine Protein 100 mg/dl mg/dL (Negative) 11/05/16 13:09 Urine Glucose (UA) Neg mg/dL (Negative) 11/05/16 13:09 Urine Ketones Neg mg/dL (Negative) 11/05/16 13:09 Urine Blood Neg (Negative) 11/05/16 13:09 Urine Nitrite Neg (Negative) 11/05/16 13:09 Urine Bilirubin Neg (Negative) 11/05/16 13:09 Urine Urobilinogen < 2.0 mg/dL (<2.0) 11/05/16 13:09 Ur Leukocyte Esterase Neg (Negative) 11/05/16 13:09 Urine WBC (Auto) 4.0 /HPF (0.0-6.0) 11/05/16 13:09 Urine RBC (Auto) 1.0 /HPF (0.0-6.0) 11/05/16 13:09 U Epithel Cells (Auto) 1.0 /HPF (0-13.0) 10/07/16 18:30 Urine Bacteria (Auto) 4+ /HPF (Negative) 11/05/16 13:09 Urine WBC Clumps 2+ /HPF 09/07/16 02:47 Hyaline Casts 4 /LPF 09/07/16 02:47 Urine Mucus Few /HPF 10/07/16 18:30 Urine Yeast (Budding) 3+ /HPF 10/07/16 18:30 Urine Eosinophils None seen (None Seen) 09/07/16 16:00 Urine Total Volume 950 11/12/16 10:18 Urine Creatinine 19.7 mg/dL (0.1-20.0) 11/12/16 10:18 Height (in) 65.0 inches 11/12/16 10:18 Weight (lb) 181.0 lbs 11/12/16 10:18 Creatinine Clearance 5 11/12/16 10:18 Urine Sodium 36 mEq/L 07/28/17 19:19 Urine Total Protein 16 mg/dL (5-11.8) H 09/16/16 19:19 Fluid Total Protein < 3.0 (15.0-45.0) L 11/10/16 14:20 Fluid LDH 123 11/10/16 14:20 Vancomycin Trough 2.3 ug/mL (5.0-20.0) L 09/21/16 13:00 Random Vancomycin 16.5 ug/mL (0-40.0) 11/28/16 09:45 Urine Opiates Screen Presumptive negative 09/03/16 15:11 Urine Methadone Screen Presumptive positive 09/03/16 15:11 Ur Barbiturates Screen Presumptive positive 09/03/16 15:11 Ur Phencyclidine Scrn Presumptive negative 09/03/16 15:11 Ur Amphetamines Screen Presumptive negative 09/03/16 15:11 U Benzodiazepines Scrn Presumptive negative 09/03/16 15:11 Urine Cocaine Screen Presumptive negative 09/03/16 15:11 U Marijuana (THC) Screen Presumptive positive 09/03/16 15:11 Drugs of Abuse Note Disclamer 09/03/16 15:11 Rheumatoid Factor 24 IU/ml (0-13) H 09/08/16 11:48 SAHIL Screen Negative (Negative) 09/07/16 09:20 Proteinase 3 (PR3) Ab <1.0 AI (<1.0) 09/07/16 09:20 Myeloperoxidase Ab <1.0 AI (<1.0) 09/07/16 09:20 Sjogren's Antibody <1.0 AI (<1.0) 09/08/16 15:35 Scl-70 Scleroderma Ab <1.0 AI (<1.0) 09/08/16 15:35 Centromere B Antibody <1.0 AI (<1.0) 09/08/16 12:02 Heparin-induced Plt Ab Negative (Negative) 09/29/16 13:35 UF Heparin High Dose 11 % Release 09/29/16 13:35 SUDHIR UFH Low Dose 0.1 6 % Release 09/29/16 13:35 SUDHIR UFH Low Dose 0.5 8 % Release 09/29/16 13:35 Cardiolipid IgG Ab <14 GPL (<=14) 09/12/16 09:59 Cardiolipid IgA Ab <11 APL (<=11) 09/12/16 09:59 Cardiolipid IgM Ab <12 MPL (<=12) 09/12/16 09:59 Complement C3 148 mg/dL (90-180) 09/07/16 09:20 Complement C4 58 mg/dL (16-47) H 09/07/16 09:20 RPR Nonreactive (Nonreactive) 09/08/16 11:48 Hepatitis A IgM Ab Non-reactive (NonReactive) 09/24/16 14:40 Hep Bs Antigen Non-reactive (Negative) 09/24/16 14:40 Hep B Core IgM Ab Non-reactive (NonReactive) 09/24/16 14:40 Hepatitis C Antibody Non-reactive (NonReactive) 09/24/16 14:40 HIV 1&2 Antibody Rapid Non react (Non React) 09/08/16 11:48 HIV P24 Antigen Non react (Non React) 09/08/16 11:48 Miscellaneous Test Flexitest 1 H 01/09/17 18:45 Blood Type A POSITIVE 01/08/17 10:37 Antibody Screen Negative 01/08/17 10:37 DELORIS Antibody Screen Negative 11/24/16 11:20 Crossmatch See Detail 01/08/17 10:37
[2017-01-11] MEDS ORDERED: TPN ADULT IV SCH (20:00)
[2017-01-11] MEDS ORDERED: INTRALIPID 20% 250 ML IV SCH (20:00)
--- NOTE | 2017-01-12 01:18 | XRay Report ---
FINAL REPORT PROCEDURE: XR ABDOMEN 1V AP TECHNIQUE: AP supine portable radiograph of the abdomen was obtained at 01/12/2017 05:28 ([facility]) . HISTORY: Confirm nasogastric tube placement. COMPARISON: Radiograph dated 01/09/2017. FINDINGS: Bowel gas pattern: Nonobstructive. Contrast seen in the colon. Masses or calcifications: None. Bony structures: Normal. Other: Cholecystectomy clips. Possible syringe overlies the left lower quadrant, likely external to patient. Correlate clinically. Central venous catheter tip in the right atrium. Enteric tube overlies expected location of the stomach. Heart size top-normal with mild perihilar and bibasilar opacities and small right pleural effusion. Left costophrenic angle excluded. IMPRESSION: Enteric tube tip overlies expected location of the stomach. Central venous catheter tip in the right atrium. Nonobstructive bowel gas pattern. Heart size top-normal with mild perihilar and bibasilar opacities and small right pleural effusion. Left costophrenic angle excluded. Consider correlation with recent chest radiograph.
[2017-01-12] MEDS: DUONEB *Not for PRN Use IH SCH ×4 (01:39→19:34)
[2017-01-12] MEDS: LOPRESSOR PO SCH ×4 (02:54→18:19)
[2017-01-12 04:58] LABS: Hematocrit 27.9 % (30.3-42.9); Hemoglobin 8.9 gm/dl (10.1-14.3); Mean Corpuscular HGB Conc 32 % (30-34); Mean Corpuscular Hemoglobin 27 pg (28-32); Mean Corpuscular Volume 85 fl (79-97); Platelet Count 347 K/mm3 (140-440); Red Blood Count 3.31 M/mm3 (3.65-5.03); Red Cell Distribution Width 17.4 % (13.2-15.2)
[2017-01-12] MEDS: APRESOLINE PO SCH ×4 (05:05→21:22)
[2017-01-12 05:18] LABS: Calcium 8.9 mg/dL (8.4-10.2)
[2017-01-12] MEDS: REGLAN IV SCH ×4 (05:50→21:23)
[2017-01-12] MEDS: HumuLIN R SUB-Q SCH ×5 (06:00→18:18)
[2017-01-12] MEDS: HEPARIN SUB-Q SCH ×2 (10:01→21:23)
[2017-01-12] MEDS: ROBINUL PO SCH ×2 (10:02→21:23)
[2017-01-12] MEDS: CORDARONE PO SCH ×2 (10:02→21:23)
[2017-01-12] MEDS: PROTONIX FEEDTUBE SCH (10:02)
--- NOTE | 2017-01-12 10:03 | Progress Note ---
Assessment and Plan Assessment and plan: Patient is 46-year-old woman with a history of hypertension, diabetes mellitus, asthma, hyperlipidemia, chronic kidney disease and anxiety, who was brought in by family because she couldn't get her words out, her face was also twisted, she was admitted for acute CVA and accelerated hypertension, she had a hx of poor adherence with her medications, and uncontrolled htn. Patient's SBP on admission was noted be greater than 260. TPA was started but this it was discontinued after 5 minutes because her blood pressure became uncontrolled. The TPA was not initiated again because the patient was outside the TPA window. Patient has had a prolonged hospital stay complicated with recurrent severe sepsis. Patient with most recent event also status post cardiac arrest on and received CPR. -Severe Sepsis with septic shock (shock resolved) Patient with multiple episodes of sepsis. Initial episode due to presumed aspiration pneumonia and septic episode on 09/23 from candidemia, then a third episode from peritonitis from gastric perforation from dislodged PEG +/-UTI. Patient was also noted to have had Candidemia with Blood cultures positive for Silvia albicans 09/23, 09/25 but negative on 09/30. Antibiotic discontinued on 12/05 per ID. patient is s/p R thoracentesis on 11/14, 240cc of serous fluid removed, cx of fluid was negative. Also, Stool negative for C. difficile -Surgical wound infection/gram-negative sepsis/candidemia/peritonitis/fungemia. Continue wound care to ostomy sites -Acute hypoxic respiratory failure, status post tracheostomy Patient placed back on ventilation. Patient currently with CPAP mode. Patient failed T-piece trials. Tracheostomy tube leak. Pulmonary following -Acute massive CVA with mass effect; continue antiplatelets and statins CT showed continued evolution of left MCA infarct with slight mass effect and edema, and there is no hemorrhage -PRINCE showed hyperdynamic ventricle with ef of 75%, neither clot nor septal defect seen -MRA Brain shows near complete occlusion of M2 and M3 of the left MCA carotid doppler negative -Echo shows preserved systolic function but does show some left ventricular diastolic dysfunction -continue asa and statin -Oliguric acute kidney injury. Etiology secondary to ATN on CKD. Baseline creatinine is approximately 1.7. -Dislodged PEG tube: Status post repair of gastric perforation which wedge gastrectomy -Paroxysmal atrial fibrillation with rapid ventricular rate, failed cardioversion Continue current medications, Not a candidate for anticoagulation secondary to anemia, thrombocytopenia and massive CVA -Anemia; probably secondary to GI bleeding Patient received multiple units of PRBC in the past, hemoglobin currently stable -Toxic metabolic encephalopathy; supportive care -Diabetes mellitus type 2, Insulin/SSI -Severe protein caloric malnutrition, cont TPN -s/p Thrombocytopenia. Now resolved -DVT prophylaxis, SCDs, no pharmacological agent given anemia , thrombocytopenia , massive stroke -Full code status, very poor prognosis now on TPN 12/18/16: yesterday pt became hypotensive after dialysis and Vasopressin was started by Dr. Lara. She was given iv hydralazine overnight. She is still on Vasopressin, now back in AFib/aflutter with RVR. i d/w Dr. Rollins who recommends iv amiodarone drip without bolus. I also spoke with [facility], Dr. De Leon. per Dr. Rollins: Paroxysmal Afib s/p failed cardioversion on 09/25 on IV lopressor for suppression considered not a candidate for anticoagulation due to severe anemia requiring blood transfusion 12/19/16: still on vasopressin, convert back to sinus, not on Amiodarone. Still on TPN, reorder restraints 01/09/17: I am back on Ms. العراقي' care team Ethics consult pending, family refuse hospice, Insurance denied LTACH When abdominal wound heals, ?place PEG and send to [facility]. Patient now on recurrent anemia requiring 2 units packed red blood cell: ccm is following Severe Leukocytosis, re-consulted ID. If leukocytosis is not improving should repeat CT abdomen and pelvis to rule out ischemic bowel==>not done, Cr increased to 1.8 today. Will repeat labs in am The high probability of a clinically significant, sudden or life threatening deterioration of the [neurologic, CV] system(s) required my full and direct attention, intervention and personal management. The aggregate critical care time was [32] minutes. This time is in addition to time spent performing reported procedures but includes the following: [x] Data Review and interpretation [x] Patient assessment and monitoring of vital signs [x] Documentation [x] Medication orders and management 01/10/17 Cr has increase, will check electrolytes. Ethics committee awaiting for family meeting but some family has not provided Zulay, case management with their available times. Hopefully, family after the iday 01/11/17 Hemodialysis today, no change. 01/12/17: review labs, await family mtg. History Interval history: Patient seen and examined. Follow up on current diagnosis/respiratory failure. Still unresponsive, Imaging, old records, testing, labs, nursing notes reviewed. Hospitalist Physical - Physical exam Narrative exam: GEN: Ill appearing, trach, staring, in vegatative state NECK: SUPPLE, trach in place, ngt in place CVS: regular currently NORMAL S1S2 LUNGS/CHEST: NORMAL CHEST EXPANSION B, GOOD AIR ENTRY B ABD: SOFT, NTND, 3 ostomy bags in 3 different locations, GBS, NO REBOUND OR GUARDING EXT/SKIN: NO SIGNIFICANT EDEMA OR RASH MSK: no spontaneous movement NEURO: CN 2-12 GROSSLY INTACT, on a ventilator PSY: Comatose, - Constitutional Vitals: Temp Pulse Resp BP Pulse Ox 98.4 F 101 H 28 H 135/84 99 01/12/17 08:00 01/12/17 08:30 01/12/17 08:30 01/12/17 08:30 01/12/17 08:30 General appearance: Present: no acute distress, well-nourished, obese Results - Labs CBC & Chem 7: 01/12/17 04:30 01/12/17 04:30 Labs: Laboratory Last Values WBC 15.8 K/mm3 (4.5-11.0) H 01/12/17 04:30 RBC 3.31 M/mm3 (3.65-5.03) L 01/12/17 04:30 Hgb 8.9 gm/dl (10.1-14.3) L 01/12/17 04:30 Hct 27.9 % (30.3-42.9) L 01/12/17 04:30 MCV 85 fl (79-97) 01/12/17 04:30 MCH 27 pg (28-32) L 01/12/17 04:30 MCHC 32 % (30-34) 01/12/17 04:30 RDW 17.4 % (13.2-15.2) H 01/12/17 04:30 Plt Count 347 K/mm3 (140-440) 01/12/17 04:30 Lymph % (Auto) 18.5 % (13.4-35.0) 01/03/17 05:00 [place] % (Auto) 10.0 % (0.0-7.3) H 01/03/17 05:00 Eos % (Auto) 0.5 % (0.0-4.3) 01/03/17 05:00 Baso % (Auto) 0.5 % (0.0-1.8) 01/03/17 05:00 Lymph # 2.1 K/mm3 (1.2-5.4) 01/03/17 05:00 [place] # 1.1 K/mm3 (0.0-0.8) H 01/03/17 05:00 Eos # 0.1 K/mm3 (0.0-0.4) 01/03/17 05:00 Baso # 0.1 K/mm3 (0.0-0.1) 01/03/17 05:00 Add Manual Diff Complete 12/19/16 05:02 Total Counted 100 12/19/16 05:02 Seg Neutrophils % 70.5 % (40.0-70.0) H 01/03/17 05:00 Seg Neuts % (Manual) 64.0 % (40.0-70.0) 12/19/16 05:02 Band Neutrophils % 15.0 % 12/19/16 05:02 Lymphocytes % (Manual) 13.0 % (13.4-35.0) L 12/19/16 05:02 Reactive Lymphs % (Man) 0 % 12/19/16 05:02 Monocytes % (Manual) 7.0 % (0.0-7.3) 12/19/16 05:02 Eosinophils % (Manual) 0 % (0.0-4.3) 12/19/16 05:02 Basophils % (Manual) 1.0 % (0.0-1.8) 12/19/16 05:02 Metamyelocytes % 0 % 12/19/16 05:02 Myelocytes % 0 % 12/19/16 05:02 Promyelocytes % 0 % 12/19/16 05:02 Blast Cells % 0 % 12/19/16 05:02 Nucleated RBC % 1.0 % (0.0-0.9) H 12/19/16 05:02 Seg Neutrophils # 7.9 K/mm3 (1.8-7.7) H 01/03/17 05:00 Seg Neutrophils # Man 12.9 K/mm3 (1.8-7.7) H 12/19/16 05:02 Band Neutrophils # 3.0 K/mm3 12/19/16 05:02 Lymphocytes # (Manual) 2.6 K/mm3 (1.2-5.4) 12/19/16 05:02 Abs React Lymphs (Man) 0.0 K/mm3 12/19/16 05:02 Monocytes # (Manual) 1.4 K/mm3 (0.0-0.8) H 12/19/16 05:02 Eosinophils # (Manual) 0.0 K/mm3 (0.0-0.4) 12/19/16 05:02 Basophils # (Manual) 0.2 K/mm3 (0.0-0.1) H 12/19/16 05:02 Metamyelocytes # 0.0 K/mm3 12/19/16 05:02 Myelocytes # 0.0 K/mm3 12/19/16 05:02 Promyelocytes # 0.0 K/mm3 12/19/16 05:02 Blast Cells # 0.0 K/mm3 12/19/16 05:02 Pathologist Review 09/13/16 04:00 WBC Morphology Not Reportable 12/19/16 05:02 Hypersegmented Neuts Not Reportable 12/19/16 05:02 Hyposegmented Neuts Not Reportable 12/19/16 05:02 Hypogranular Neuts Not Reportable 12/19/16 05:02 Smudge Cells Not Reportable 12/19/16 05:02 Toxic Granulation Not Reportable 12/19/16 05:02 Toxic Vacuolation Not Reportable 12/19/16 05:02 Dohle Bodies Not Reportable 12/19/16 05:02 Pelger-Huet Anomaly Not Reportable 12/19/16 05:02 Jasmina Rods Not Reportable 12/19/16 05:02 Platelet Estimate Consistent w auto 12/19/16 05:02 Clumped Platelets Not Reportable 12/19/16 05:02 Plt Clumps, EDTA Not Reportable 12/19/16 05:02 Large Platelets Not Reportable 12/19/16 05:02 Giant Platelets Not Reportable 12/19/16 05:02 Platelet Satelliting Not Reportable 12/19/16 05:02 Plt Morphology Comment Not Reportable 12/19/16 05:02 RBC Morphology Not Reportable 12/19/16 05:02 Dimorphic RBCs Not Reportable 12/19/16 05:02 Polychromasia Not Reportable 12/19/16 05:02 Hypochromasia Not Reportable 12/19/16 05:02 Poikilocytosis Not Reportable 12/19/16 05:02 Anisocytosis Not Reportable 12/19/16 05:02 Microcytosis Not Reportable 12/19/16 05:02 Macrocytosis Not Reportable 12/19/16 05:02 Spherocytes Not Reportable 12/19/16 05:02 Pappenheimer Bodies Not Reportable 12/19/16 05:02 Sickle Cells Not Reportable 12/19/16 05:02 Target Cells Few 12/19/16 05:02 Tear Drop Cells Not Reportable 12/19/16 05:02 Ovalocytes Not Reportable 12/19/16 05:02 Stomatocytes Rare 12/03/16 04:00 Helmet Cells Not Reportable 12/19/16 05:02 [place] Bodies Not Reportable 12/19/16 05:02 [place] Rings Not Reportable 12/19/16 05:02 [place] Cells Not Reportable 12/19/16 05:02 Bite Cells Not Reportable 12/19/16 05:02 Crenated Cell Not Reportable 12/19/16 05:02 Elliptocytes Not Reportable 12/19/16 05:02 Acanthocytes (Spur) Not Reportable 12/19/16 05:02 Rouleaux Not Reportable 12/19/16 05:02 Hemoglobin C Crystals Not Reportable 12/19/16 05:02 Schistocytes Not Reportable 12/19/16 05:02 Malaria parasites Not Reportable 12/19/16 05:02 ESR > 140.0 mm/Hr (0-20) 09/08/16 11:48 Jun Bodies Not Reportable 12/19/16 05:02 Hem Pathologist Commnt No 12/19/16 05:02 PT 16.1 Sec. (12.2-14.9) H 12/28/16 08:30 INR 1.23 (0.87-1.13) H 12/28/16 08:30 APTT 33.0 Sec. (24.2-36.6) 10/09/16 03:45 Thrombin Time 16.8 Sec. (15.1-19.6) 09/03/16 00:10 Fibrinogen 750 mg/dl (211-480) H 09/08/16 11:48 Lupus Anticoagulant see below 09/12/16 09:59 LA PTT Baseline See scanned report 09/12/16 09:59 dRVVT Confirm Interp Positive (Negative) H 09/12/16 09:59 dRVVT Screen 50:50 See scanned report 09/12/16 09:59 dRVVT Mix Interpret See scanned report 09/12/16 09:59 Protein C Antigen 122 % (70-140) 09/08/16 15:35 Free Protein S 97 % normal (50-147) 09/08/16 15:35 Total Protein S 109 % (70-140) 09/08/16 15:35 Antithrombin III Ag 100 % (80-120) 09/08/16 15:35 Heparin Anti-Xa, Unfract Negative (Negative) 09/29/16 13:35 Factor V Activity 182 % (65-150) H 09/08/16 15:35 POC ABG pH 7.503 (7.35-7.45) H 12/19/16 09:36 ABG pH 7.450 pH Units (7.350-7.450) 12/05/16 Unknown POC ABG pCO2 30.1 (35-45) L 12/19/16 09:36 ABG pCO2 29.6 mm Hg 12/05/16 Unknown POC ABG pO2 85 (80-105) 12/19/16 09:36 ABG pO2 75.2 mm Hg (80.0-90.0) L 12/05/16 Unknown POC ABG HCO3 23.6 12/19/16 09:36 ABG HCO3 20.1 mmol/L (20.0-26.0) 12/05/16 Unknown POC ABG Total CO2 25 12/19/16 09:36 POC ABG O2 Sat 97 12/19/16 09:36 ABG O2 Saturation 96.8 % (95.0-99.0) 12/05/16 Unknown ABG O2 Content 9.9 (0.0-44) 12/05/16 Unknown POC ABG Base Excess 1 12/19/16 09:36 ABG Base Excess -3.4 mmol/L (-2.0-3.0) L 12/05/16 Unknown ABG Hemoglobin 7.4 gm/dl (12.0-16.0) L 12/05/16 Unknown ABG Carboxyhemoglobin 1.8 % (0.0-5.0) 12/05/16 Unknown ABG Methemoglobin 0.6 % (0.0-1.5) 12/05/16 Unknown Oxyhemoglobin 94.5 % (95.0-99.0) L 12/05/16 Unknown FiO2 28 % 12/19/16 09:36 Sodium 142 mmol/L (137-145) 01/12/17 04:30 Potassium 4.1 mmol/L (3.6-5.0) 01/12/17 04:30 Chloride 103.1 mmol/L (98-107) 01/12/17 04:30 Carbon Dioxide 26 mmol/L (22-30) 01/12/17 04:30 Anion Gap 17 mmol/L 01/12/17 04:30 BUN 57 mg/dL (7-17) H 01/12/17 04:30 Creatinine 1.2 mg/dL (0.7-1.2) 01/12/17 04:30 Estimated GFR 59 ml/min 01/12/17 04:30 BUN/Creatinine Ratio 48 % 01/12/17 04:30 Glucose 121 mg/dL (65-100) H 01/12/17 04:30 POC Glucose 110 (70-105) H 01/12/17 05:47 Osmolality 351 Mosm/kg 09/16/16 11:47 Lactic Acid 2.30 mmol/L (0.7-2.0) H* 01/09/17 08:22 Calcium 8.9 mg/dL (8.4-10.2) 01/12/17 04:30 Phosphorus 2.10 mg/dL (2.5-4.5) L 01/12/17 04:30 Magnesium 1.90 mg/dL (1.7-2.3) 01/12/17 04:30 Total Bilirubin 0.50 mg/dL (0.1-1.2) 01/01/17 05:00 Direct Bilirubin 0.3 mg/dL (0-0.2) H 10/10/16 05:00 Indirect Bilirubin 0.1 mg/dL 10/10/16 05:00 AST 35 units/L (5-40) 01/01/17 05:00 ALT 51 units/L (7-56) 01/01/17 05:00 Alkaline Phosphatase 536 units/L (35-129) H 01/01/17 05:00 Ammonia 27.0 umol/L (25-60) 09/07/16 08:37 Lactate Dehydrogenase 196 units/L (91-180) H 11/11/16 06:59 Total Creatine Kinase 121 units/L (30-135) 09/29/16 20:12 CK-MB (CK-2) < 1.0 ng/mL (0.0-4.0) 09/29/16 20:12 CK-MB (CK-2) Rel Index 0.8 (0-4) 09/29/16 20:12 Troponin T 0.204 ng/mL (0.00-0.029) H* 09/29/16 20:12 C-Reactive Protein 24.70 mg/dL (0.00-1.30) H 01/09/17 13:30 Total Protein 6.3 g/dL (6.3-8.2) 01/01/17 05:00 Albumin 1.5 g/dL (3.9-5) L 01/01/17 05:00 Albumin/Globulin Ratio 0.3 % 01/01/17 05:00 Prealbumin 0.110 g/L (0.200-0.400) L 12/29/16 05:15 Triglycerides 137 mg/dL (2-149) 09/29/16 20:12 Cholesterol 31 mg/dL (50-199) L 09/29/16 20:12 LDL Cholesterol Direct 4 mg/dL (50-130) L 09/29/16 20:12 HDL Cholesterol 3 mg/dL (40-59) L 09/29/16 20:12 Cholesterol/HDL Ratio 10.33 % 09/29/16 20:12 Angiotensin Convert Enz See scanned report 09/08/16 11:48 Renin 0.99 ng/mL/h (0.25-5.82) 10/07/16 10:56 Aldosterone <1 ng/dL () 10/07/16 10:56 Aldosterone/Renin Dir see below 10/07/16 10:56 Serotonin Release Assay See scanned report 09/29/16 13:35 TSH 1.010 mlU/mL (0.270-4.200) 09/07/16 08:37 HCG, Qual Negative (Negative) 09/03/16 00:10 Urine Color Yellow (Yellow) 11/05/16 13:09 Urine Turbidity Clear (Clear) 11/05/16 13:09 Urine pH 9.0 (5.0-7.0) H 11/05/16 13:09 Ur Specific [place] 1.011 (1.003-1.030) 11/05/16 13:09 Urine Protein 100 mg/dl mg/dL (Negative) 11/05/16 13:09 Urine Glucose (UA) Neg mg/dL (Negative) 11/05/16 13:09 Urine Ketones Neg mg/dL (Negative) 11/05/16 13:09 Urine Blood Neg (Negative) 11/05/16 13:09 Urine Nitrite Neg (Negative) 11/05/16 13:09 Urine Bilirubin Neg (Negative) 11/05/16 13:09 Urine Urobilinogen < 2.0 mg/dL (<2.0) 11/05/16 13:09 Ur Leukocyte Esterase Neg (Negative) 11/05/16 13:09 Urine WBC (Auto) 4.0 /HPF (0.0-6.0) 11/05/16 13:09 Urine RBC (Auto) 1.0 /HPF (0.0-6.0) 11/05/16 13:09 U Epithel Cells (Auto) 1.0 /HPF (0-13.0) 10/07/16 18:30 Urine Bacteria (Auto) 4+ /HPF (Negative) 11/05/16 13:09 Urine WBC Clumps 2+ /HPF 09/07/16 02:47 Hyaline Casts 4 /LPF 09/07/16 02:47 Urine Mucus Few /HPF 10/07/16 18:30 Urine Yeast (Budding) 3+ /HPF 10/07/16 18:30 Urine Eosinophils None seen (None Seen) 09/07/16 16:00 Urine Total Volume 950 11/12/16 10:18 Urine Creatinine 19.7 mg/dL (0.1-20.0) 11/12/16 10:18 Height (in) 65.0 inches 11/12/16 10:18 Weight (lb) 181.0 lbs 11/12/16 10:18 Creatinine Clearance 5 11/12/16 10:18 Urine Sodium 36 mEq/L 09/16/16 19:19 Urine Total Protein 16 mg/dL (5-11.8) H 09/16/16 19:19 Fluid Total Protein < 3.0 (15.0-45.0) L 11/10/16 14:20 Fluid LDH 123 11/10/16 14:20 Vancomycin Trough 2.3 ug/mL (5.0-20.0) L 09/21/16 13:00 Random Vancomycin 16.5 ug/mL (0-40.0) 11/28/16 09:45 Urine Opiates Screen Presumptive negative 09/03/16 15:11 Urine Methadone Screen Presumptive positive 09/03/16 15:11 Ur Barbiturates Screen Presumptive positive 09/03/16 15:11 Ur Phencyclidine Scrn Presumptive negative 09/03/16 15:11 Ur Amphetamines Screen Presumptive negative 09/03/16 15:11 U Benzodiazepines Scrn Presumptive negative 09/03/16 15:11 Urine Cocaine Screen Presumptive negative 09/03/16 15:11 U Marijuana (THC) Screen Presumptive positive 09/03/16 15:11 Drugs of Abuse Note Disclamer 09/03/16 15:11 Rheumatoid Factor 24 IU/ml (0-13) H 09/08/16 11:48 SAHIL Screen Negative (Negative) 09/07/16 09:20 Proteinase 3 (PR3) Ab <1.0 AI (<1.0) 09/07/16 09:20 Myeloperoxidase Ab <1.0 AI (<1.0) 09/07/16 09:20 Sjogren's Antibody <1.0 AI (<1.0) 09/08/16 15:35 Scl-70 Scleroderma Ab <1.0 AI (<1.0) 09/08/16 15:35 Centromere B Antibody <1.0 AI (<1.0) 09/08/16 12:02 Heparin-induced Plt Ab Negative (Negative) 09/29/16 13:35 UF Heparin High Dose 11 % Release 09/29/16 13:35 SUDHIR UFH Low Dose 0.1 6 % Release 09/29/16 13:35 SUDHIR UFH Low Dose 0.5 8 % Release 09/29/16 13:35 Cardiolipid IgG Ab <14 GPL (<=14) 09/12/16 09:59 Cardiolipid IgA Ab <11 APL (<=11) 09/12/16 09:59 Cardiolipid IgM Ab <12 MPL (<=12) 09/12/16 09:59 Complement C3 148 mg/dL (90-180) 09/07/16 09:20 Complement C4 58 mg/dL (16-47) H 09/07/16 09:20 RPR Nonreactive (Nonreactive) 09/08/16 11:48 Hepatitis A IgM Ab Non-reactive (NonReactive) 09/24/16 14:40 Hep Bs Antigen Non-reactive (Negative) 09/24/16 14:40 Hep B Core IgM Ab Non-reactive (NonReactive) 09/24/16 14:40 Hepatitis C Antibody Non-reactive (NonReactive) 09/24/16 14:40 HIV 1&2 Antibody Rapid Non react (Non React) 09/08/16 11:48 HIV P24 Antigen Non react (Non React) 09/08/16 11:48 Miscellaneous Test Flexitest 1 H 01/09/17 18:45 Blood Type A POSITIVE 01/08/17 10:37 Antibody Screen Negative 01/08/17 10:37 DELORIS Antibody Screen Negative 11/24/16 11:20 Crossmatch See Detail 01/08/17 10:37
--- NOTE | 2017-01-12 10:06 | Progress Note ---
Assessment and Plan Assessment: 1) Recurrent SIRS: unclear source, better. Unclear source. DDx-infected sacral decubiti, recurrent UTI, VAP ?? 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 3) History of Candidemia: -Blood cultures positive for Silvia albicans on 09/23 and 09/25 -Blood cultures negative on 09/30 -PICC line changed on 10/03 -Source ? gastric perf (PEG placed on 09/20) +/- TPN +/- central lines -TTE 10/07 no vegetations -PICC exchanged on 10/03 -fully treated with micafungin for 14 days last day 10/13 4) History CA-UTI s/p gutierrez exchanged 5) Diarrhea - ? etiology ? antibiotic-induced, not better. 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 from GI bleed 13) Recent abdominal wall abscess at surgical site-treated 14 ) Recent Enterococcal bacteremia from PICC line infection. 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 no cultures obtained Plan: -obtain wound cultures - pending - discussed with wound care -continue meropenem day 5 (if she has sacral osteo will do 4 weeks) -overall prognosis very poor I will be off tomorrow, available on the phone and will be back rounding on the weekend Thank you Dr Hodges for your consultation, will follow up with you. Pauline Carias MD Infectious Diseases Specialist [facility] ([facility] M [phone] O [phone] Subjective Date of service: 01/12/17 Principal diagnosis: Acute resp failure on MVS; S/P Acute CVA; Acute Encephalopathy; JUANITA Interval history: Interval history: remains on the vent via trach no fever, off pressors, + TPN Microbiology: Blood cultures: 09/13 neg 09/23 Silvia albicans 09/25 Silvia 8/10 neg 10/07 neg 11/05 neg 11/07 ngtd 10 E faecalis 1 of 4 bottles 11/25 neg 12/27 neg 01/09 ngtd Urine cultures: 09/10 neg 09/13 neg 8/ 10-100K mixed species 10/07 neg 11/05 VRE 11/07 mixed bacteria Respiratory cultures: 09/07 neg 09/13 neg 8 neg 11/07 MDR Pseudomonas 10 tracheal + VRE 01/09 GNRs x 4 Wound cultures: 10/17 abd wall wound purulence + Pseudomonas MDR Stool cultures: cath tip 11/07 + [employer]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 +NGT with greenish secretion Neck: +trach in place; supple, no thyromegaly or lymphadenopathy Lungs: brit coarse BS CV: tachycardic Abdomen: Soft, non-tender, +old PEG site no drainage. +iliostomy. 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 Neuro: alert non verbal on the vent. Lines: PICC / gutierrez - Constitutional Vitals: Vital Signs Temp Pulse Resp BP Pulse Ox 98.4 F 101 H 28 H 135/84 99 01/12/17 08:00 01/12/17 08:30 01/12/17 08:30 01/12/17 08:30 01/12/17 08:30 Temperature -Last 24 Hours Temperature 98.4 F Temperature 98.9 F Temperature 99.0 F Temperature 98.7 F Temperature 97.8 F Temperature 99.4 F - Labs CBC & Chem 7: 01/12/17 04:30 01/12/17 04:30 Labs: Abnormal lab results 01/09/17 01/11/17 01/11/17 Range/Units 18:45 12:46 18:23 WBC (4.5-11.0) K/mm3 RBC (3.65-5.03) M/mm3 Hgb (10.1-14.3) gm/dl Hct (30.3-42.9) % MCH (28-32) pg RDW (13.2-15.2) % BUN (7-17) mg/dL Glucose (65-100) mg/dL POC Glucose 148 H 125 H (70-105) Phosphorus (2.5-4.5) mg/dL Miscellaneous Test Flexitest 1 H 01/11/17 01/12/17 01/12/17 Range/Units 23:42 04:30 04:30 WBC 15.8 H (4.5-11.0) K/mm3 RBC 3.31 L (3.65-5.03) M/mm3 Hgb 8.9 L (10.1-14.3) gm/dl Hct 27.9 L (30.3-42.9) % MCH 27 L (28-32) pg RDW 17.4 H (13.2-15.2) % BUN 57 H (7-17) mg/dL Glucose 121 H (65-100) mg/dL POC Glucose 124 H (70-105) Phosphorus 2.10 L (2.5-4.5) mg/dL Miscellaneous Test 01/12/17 Range/Units 05:47 WBC (4.5-11.0) K/mm3 RBC (3.65-5.03) M/mm3 Hgb (10.1-14.3) gm/dl Hct (30.3-42.9) % MCH (28-32) pg RDW (13.2-15.2) % BUN (7-17) mg/dL Glucose (65-100) mg/dL POC Glucose 110 H (70-105) Phosphorus (2.5-4.5) mg/dL Miscellaneous Test
--- NOTE | 2017-01-12 10:36 | Progress Note ---
Subjective Principal diagnosis: Acute resp failure on MVS; S/P Acute CVA; Acute Encephalopathy; JUANITA Interval history: Patient was seen today for follow-up, on many renal related issues Interdisciplinary notes were reviewed patient still remains oliguric Vitals labs intake and output medications were reviewed from today Allergies: Reviewed Social history: Reviewed Family history: Reviewed Physical examination HEENT: Oral mucosa moist no pharyngeal erythema Neck: Supple no JVD Chest:few bilateral basilar crackles noted Heart: Regular rate and rhythm S1-S2 heard no S3-S4 Abdomen: Soft nontender no renal bruit no CVA tenderness no suprapubic fullness Extremity: Mild edema dry skin no peripheral cyanosis pulses palpable Musculoskeletal: No joint effusion noted Assessment and plan Renal failure: Patient remains dialysis dependent oliguric continue to dialyze 3 times a week for now Hypertension/renovascular; mixed variety monitor blood pressure and follow Status post cardiac arrest, respiratory failure, seizure disorder Multiple comorbidities including peritonitis, candidemia, urinary tract infection, diarrhea, CVA left-sided, abdominal wall abscess Continue with hemodialysis ultrafiltration as tolerated Other management per primary team and other specialities Overall prognosis ordered to poor Objective - Vital Signs Vital signs: Vital Signs - 12hr 01/11/17 01/11/17 01/11/17 23:00 23:22 23:30 Temperature Pulse Rate 114 H 102 H 113 H Pulse Rate [ Apical] Pulse Rate [ Bilateral Throughout] Respiratory 25 H 11 L Rate Respiratory Rate [Bilateral Throughout] Blood Pressure 127/82 123/88 145/76 O2 Sat by Pulse 93 97 97 Oximetry O2 Sat by Pulse Oximetry [ Assessment] 01/12/17 01/12/17 01/12/17 00:00 00:30 01:00 Temperature 98.9 F Pulse Rate 109 H 123 H 114 H Pulse Rate [ 110 H Apical] Pulse Rate [ Bilateral Throughout] Respiratory 15 22 28 H Rate Respiratory Rate [Bilateral Throughout] Blood Pressure 144/78 146/82 125/79 O2 Sat by Pulse 98 80 L 81 L Oximetry O2 Sat by Pulse Oximetry [ Assessment] 01/12/17 01/12/17 01/12/17 01:30 01:33 01:39 Temperature Pulse Rate 114 H Pulse Rate [ Apical] Pulse Rate [ 111 H Bilateral Throughout] Respiratory 23 Rate Respiratory 24 Rate [Bilateral Throughout] Blood Pressure 148/101 O2 Sat by Pulse 99 Oximetry O2 Sat by Pulse 94 Oximetry [ Assessment] 11/01/12/17 01/12/17 01:54 02:00 02:30 Temperature Pulse Rate 112 H 115 H Pulse Rate [ Apical] Pulse Rate [ 113 H Bilateral Throughout] Respiratory 26 H 22 Rate Respiratory 24 Rate [Bilateral Throughout] Blood Pressure 121/81 143/98 O2 Sat by Pulse 85 100 Oximetry O2 Sat by Pulse Oximetry [ Assessment] 01/12/17 01/12/17 01/12/17 03:00 03:30 03:40 Temperature Pulse Rate 110 H 120 H 121 H Pulse Rate [ Apical] Pulse Rate [ Bilateral Throughout] Respiratory 24 14 Rate Respiratory Rate [Bilateral Throughout] Blood Pressure 150/97 146/95 146/95 O2 Sat by Pulse 100 90 96 Oximetry O2 Sat by Pulse Oximetry [ Assessment] 01/12/17 01/12/17 01/12/17 04:00 04:21 04:30 Temperature Pulse Rate 122 H 119 H Pulse Rate [ 121 H Apical] Pulse Rate [ Bilateral Throughout] Respiratory 17 17 22 Rate Respiratory Rate [Bilateral Throughout] Blood Pressure 148/102 141/102 O2 Sat by Pulse 97 96 Oximetry O2 Sat by Pulse Oximetry [ Assessment] 01/12/17 01/12/17 01/12/17 05:00 05:30 06:00 Temperature Pulse Rate 104 H 99 H 106 H Pulse Rate [ Apical] Pulse Rate [ Bilateral Throughout] Respiratory 22 21 23 Rate Respiratory Rate [Bilateral Throughout] Blood Pressure 130/88 138/90 137/98 O2 Sat by Pulse 83 L 91 87 Oximetry O2 Sat by Pulse Oximetry [ Assessment] 01/12/17 01/12/17 01/12/17 06:30 07:00 07:30 Temperature Pulse Rate 105 H 104 H 101 H Pulse Rate [ Apical] Pulse Rate [ Bilateral Throughout] Respiratory 22 21 27 H Rate Respiratory Rate [Bilateral Throughout] Blood Pressure 138/90 119/71 108/71 O2 Sat by Pulse 98 87 82 L Oximetry O2 Sat by Pulse Oximetry [ Assessment] 01/12/17 01/12/17 01/12/17 08:00 08:04 08:11 Temperature 98.4 F Pulse Rate 103 H 101 H Pulse Rate [ Apical] Pulse Rate [ 101 H Bilateral Throughout] Respiratory 13 38 H Rate Respiratory 28 H Rate [Bilateral Throughout] Blood Pressure 109/79 131/83 O2 Sat by Pulse 98 95 Oximetry O2 Sat by Pulse Oximetry [ Assessment] 01/12/17 08:30 Temperature Pulse Rate 101 H Pulse Rate [ Apical] Pulse Rate [ 101 H Bilateral Throughout] Respiratory 13 Rate Respiratory 28 H Rate [Bilateral Throughout] Blood Pressure 135/84 O2 Sat by Pulse 99 Oximetry O2 Sat by Pulse Oximetry [ Assessment] - Lab 01/12/17 04:30 01/12/17 04:30 Most recent lab results ABG pH 7.450 pH Units (7.350-7.450) 12/05/16 Unknown ABG pCO2 29.6 mm Hg 12/05/16 Unknown ABG pO2 75.2 mm Hg (80.0-90.0) L 12/05/16 Unknown ABG HCO3 20.1 mmol/L (20.0-26.0) 12/05/16 Unknown ABG O2 Saturation 96.8 % (95.0-99.0) 12/05/16 Unknown Calcium 8.9 mg/dL (8.4-10.2) 01/12/17 04:30 Phosphorus 2.10 mg/dL (2.5-4.5) L 01/12/17 04:30 Magnesium 1.90 mg/dL (1.7-2.3) 01/12/17 04:30 Urine Creatinine 19.7 mg/dL (0.1-20.0) 11/12/16 10:18 Urine Sodium 36 mEq/L 09/16/16 19:19 Urine Total Protein 16 mg/dL (5-11.8) H 09/16/16 19:19
[2017-01-12] MEDS: NACL 0.9% IV SCH (12:40)
[2017-01-12] MEDS: MERREM IV SCH (12:40)
--- NOTE | 2017-01-12 13:11 | Progress Note ---
Assessment and Plan Acute Hypoxemic Respiratory Failure (now with exacerbation and back on MVS) Hypertension (unable to receive p.o. meds) Atrial Fibrillation with RVR s/p tracheostomy Acute encephalopathy s/p CVA Oropharyngeal dysphagia Enterococcal bacteremia sepsis syndrome Sacral Decubitus Ulcer (s/p surgical debridement) Anemia Obesity JUANITA now on hemodialysis Enteric Fistula (I discussed fluid collections with surgeon re: need for further intervention or stopping enteral nutrition; i was informed that there was no need for surgical intervention acutely as findings were sequelae of prior interventions; also ok to continue enteral nutrition) - continue tube feeds at 10mls/hr; continue reglan at 5mg IV q6h - continue HD/UF per nephrology; with CXR picture and chest ultrasound i will recommend continued UF sessions at least 3 x weekly as tolerated - will order right thoracentesis after review of CT lung windows as wshould improve weaning - continue fentanyl patch for pain issues especially s/p debridement - continue wound care per WCT and RN's (s/p surgical debridement) - continue anti-infectives per ID recs - prn CRP & lactate levels if clinically indicated (Follow WBC also) - keep on with daily PSV trials and / or T-piece as tolerated (repeat trial each shift if failed earlier shift)(not tolerating today either) - continue TPN administration - continue scopolamine for secretion control - continue to wean FiO2 for sats > 94% - continue bronchodilators and pulmonary toilet - VAP bundle addressed - continue prn IV metorolol - continue metoprolol and amlodipine (hold for hypotension) - continue to follow electrolytes and correct as necessary - continue GI & VTE prophylaxis - Continue flu & pneumovax per protocol - ethics consult placed .....she remains critically ill on life sustaining interventions including MVS and at risk for further deterioration including ....38' CCT today without overlap ....care plan discussed at length during team rounds ...medical transcription radiology prognosis remains guarded and this has intermittently been conveyed to family Subjective Date of service: 01/12/17 Principal diagnosis: Acute resp failure on MVS; S/P Acute CVA; Acute Encephalopathy; JUANITA Interval history: Patient is seen today for: Acute resp failure on MVS; S/P Acute CVA; Acute Encephalopathy; JUANITA Seen and examined at bedside; 24hour events reviewed; nursing and respiratory care staff consulted; no adverse overnight events reported to me; silvia remains critically ill and is still not tolerating weaning well Objective Vital Signs - 12hr 01/12/17 01/12/17 01/12/17 01:30 01:33 01:39 Temperature Pulse Rate 114 H Pulse Rate [ Apical] Pulse Rate [ 111 H Bilateral Throughout] Respiratory 23 Rate Respiratory 24 Rate [Bilateral Throughout] Blood Pressure 148/101 O2 Sat by Pulse 99 Oximetry O2 Sat by Pulse 94 Oximetry [ Assessment] 01/12/17 01/12/17 01/12/17 01:54 02:00 02:30 Temperature Pulse Rate 112 H 115 H Pulse Rate [ Apical] Pulse Rate [ 113 H Bilateral Throughout] Respiratory 26 H 22 Rate Respiratory 24 Rate [Bilateral Throughout] Blood Pressure 121/81 143/98 O2 Sat by Pulse 85 100 Oximetry O2 Sat by Pulse Oximetry [ Assessment] 01/12/17 01/12/17 01/12/17 03:00 03:30 03:40 Temperature Pulse Rate 110 H 120 H 121 H Pulse Rate [ Apical] Pulse Rate [ Bilateral Throughout] Respiratory 24 14 Rate Respiratory Rate [Bilateral Throughout] Blood Pressure 150/97 146/95 146/95 O2 Sat by Pulse 100 90 96 Oximetry O2 Sat by Pulse Oximetry [ Assessment] 01/12/17 01/12/17 01/12/17 04:00 04:21 04:30 Temperature Pulse Rate 122 H 119 H Pulse Rate [ 121 H Apical] Pulse Rate [ Bilateral Throughout] Respiratory 17 17 22 Rate Respiratory Rate [Bilateral Throughout] Blood Pressure 148/102 141/102 O2 Sat by Pulse 97 96 Oximetry O2 Sat by Pulse Oximetry [ Assessment] 01/12/17 01/12/17 01/12/17 05:00 05:30 06:00 Temperature Pulse Rate 104 H 99 H 106 H Pulse Rate [ Apical] Pulse Rate [ Bilateral Throughout] Respiratory 22 21 23 Rate Respiratory Rate [Bilateral Throughout] Blood Pressure 130/88 138/90 137/98 O2 Sat by Pulse 83 L 91 87 Oximetry O2 Sat by Pulse Oximetry [ Assessment] 01/12/17 01/12/17 01/12/17 06:30 07:00 07:30 Temperature Pulse Rate 105 H 104 H 101 H Pulse Rate [ Apical] Pulse Rate [ Bilateral Throughout] Respiratory 22 21 27 H Rate Respiratory Rate [Bilateral Throughout] Blood Pressure 138/90 119/71 108/71 O2 Sat by Pulse 98 87 82 L Oximetry O2 Sat by Pulse Oximetry [ Assessment] 01/12/17 01/12/17 01/12/17 08:00 08:04 08:11 Temperature 98.4 F Pulse Rate 103 H 101 H Pulse Rate [ Apical] Pulse Rate [ 101 H Bilateral Throughout] Respiratory 13 38 H Rate Respiratory 28 H Rate [Bilateral Throughout] Blood Pressure 109/79 131/83 O2 Sat by Pulse 98 95 Oximetry O2 Sat by Pulse Oximetry [ Assessment] 01/12/17 01/12/17 01/12/17 08:30 09:00 09:30 Temperature Pulse Rate 101 H 101 H 104 H Pulse Rate [ Apical] Pulse Rate [ 101 H Bilateral Throughout] Respiratory 13 16 14 Rate Respiratory 28 H Rate [Bilateral Throughout] Blood Pressure 135/84 123/80 129/79 O2 Sat by Pulse 99 99 93 Oximetry O2 Sat by Pulse Oximetry [ Assessment] 01/12/17 01/12/17 01/12/17 10:00 10:30 11:00 Temperature Pulse Rate 102 H 102 H 103 H Pulse Rate [ Apical] Pulse Rate [ Bilateral Throughout] Respiratory 30 H 29 H 32 H Rate Respiratory Rate [Bilateral Throughout] Blood Pressure 124/84 122/77 122/72 O2 Sat by Pulse 95 92 97 Oximetry O2 Sat by Pulse Oximetry [ Assessment] 01/12/17 01/12/17 01/12/17 11:30 11:55 12:00 Temperature 98.4 F Pulse Rate 106 H 100 H 102 H Pulse Rate [ Apical] Pulse Rate [ Bilateral Throughout] Respiratory 26 H 33 H 35 H Rate Respiratory Rate [Bilateral Throughout] Blood Pressure 118/79 118/79 117/70 O2 Sat by Pulse 100 93 93 Oximetry O2 Sat by Pulse Oximetry [ Assessment] 01/12/17 01/12/17 12:30 13:00 Temperature Pulse Rate 102 H 108 H Pulse Rate [ Apical] Pulse Rate [ Bilateral Throughout] Respiratory 36 H 21 Rate Respiratory Rate [Bilateral Throughout] Blood Pressure 120/69 120/69 O2 Sat by Pulse 93 98 Oximetry O2 Sat by Pulse Oximetry [ Assessment] Constitutional: appears uncomfortable, other (not tracking) Eyes: non-icteric, other (tracheostomy tube in midline of neck) ENT: oropharynx moist, oropharyngeal exudate pre Neck: supple, no lymphadenopathy, no JVD, other (no thyromegaly) Effort: mildly labored Ascultation: Bilateral: clear, diminished breath sounds (bases), rales, rhonchi (and referred upper airway sounds) Percussion: Bilateral: not dull, dull (bases) Cardiovascular: regular rate and rhythm, other (no rubs / murmurs) Gastrointestinal: hypoactive bowel sounds, soft, non-tender, non-distended, other (RLQ & LUQ stomas with colostomy bags) Integumentary: decubitus ulcer (sacral; stage 4 s/p surgical debridement), other (no rash; no cellulitis; poor turgor) Extremities: no cyanosis, pulses normal, no ischemia or petechiae, edema (1+ bilaterally) Neurologic: pupils equal and round, unable to assess, other (encephalopathic) Psychiatric: other (unable to assess) CBC and BMP: 01/12/17 04:30 01/12/17 04:30 ABG, PT/INR, D-dimer: ABG POC ABG pH 7.503 (7.35-7.45) H 12/19/16 09:36 ABG pH 7.450 pH Units (7.350-7.450) 12/05/16 Unknown POC ABG pCO2 30.1 (35-45) L 12/19/16 09:36 ABG pCO2 29.6 mm Hg 12/05/16 Unknown POC ABG pO2 85 (80-105) 12/19/16 09:36 ABG pO2 75.2 mm Hg (80.0-90.0) L 12/05/16 Unknown POC ABG HCO3 23.6 12/19/16 09:36 POC ABG Total CO2 25 12/19/16 09:36 POC ABG O2 Sat 97 12/19/16 09:36 ABG O2 Saturation 96.8 % (95.0-99.0) 12/05/16 Unknown PT/INR, D-dimer PT 16.1 Sec. (12.2-14.9) H 12/28/16 08:30 INR 1.23 (0.87-1.13) H 12/28/16 08:30 Abnormal lab findings: Abnormal Labs 09/03/16 09/03/16 09/03/16 00:03 00:10 00:10 WBC 13.9 H RBC 5.95 H Hgb Hct 44.0 H MCV 74 L MCH 22 L MCHC RDW 17.5 H Plt Count Lymph % (Auto) [place] % (Auto) Lymph # [place] # Baso # Seg Neutrophils % Seg Neuts % (Manual) Lymphocytes % (Manual) 54.0 H Monocytes % (Manual) Eosinophils % (Manual) Basophils % (Manual) Nucleated RBC % Seg Neutrophils # Seg Neutrophils # Man Lymphocytes # (Manual) 7.5 H Monocytes # (Manual) Eosinophils # (Manual) Basophils # (Manual) PT INR Fibrinogen dRVVT Confirm Interp Factor V Activity POC ABG pH POC ABG pCO2 POC ABG pO2 ABG pO2 ABG HCO3 ABG Base Excess ABG Hemoglobin Oxyhemoglobin Sodium Potassium 2.8 L* Chloride Carbon Dioxide 21 L BUN Creatinine 1.7 H Glucose 159 H POC Glucose 177 H Lactic Acid Calcium Phosphorus Magnesium Direct Bilirubin AST ALT Alkaline Phosphatase Lactate Dehydrogenase Troponin T C-Reactive Protein Total Protein Albumin Prealbumin Triglycerides Cholesterol LDL Cholesterol Direct HDL Cholesterol Urine pH Urine WBC (Auto) Urine Creatinine Urine Total Protein Fluid Total Protein Vancomycin Trough Rheumatoid Factor Complement C4 Miscellaneous Test Crossmatch 09/03/16 09/03/16 09/03/16 12:12 15:07 16:20 WBC RBC Hgb Hct MCV MCH MCHC RDW Plt Count Lymph % (Auto) [place] % (Auto) Lymph # [place] # Baso # Seg Neutrophils % Seg Neuts % (Manual) Lymphocytes % (Manual) Monocytes % (Manual) Eosinophils % (Manual) Basophils % (Manual) Nucleated RBC % Seg Neutrophils # Seg Neutrophils # Man Lymphocytes # (Manual) Monocytes # (Manual) Eosinophils # (Manual) Basophils # (Manual) PT INR Fibrinogen dRVVT Confirm Interp Factor V Activity POC ABG pH 7.452 H POC ABG pCO2 POC ABG pO2 ABG pO2 ABG HCO3 ABG Base Excess ABG Hemoglobin Oxyhemoglobin Sodium Potassium Chloride Carbon Dioxide BUN Creatinine Glucose POC Glucose 178 H Lactic Acid Calcium Phosphorus 2.20 L Magnesium 1.60 L Direct Bilirubin AST ALT Alkaline Phosphatase Lactate Dehydrogenase Troponin T C-Reactive Protein Total Protein Albumin Prealbumin Triglycerides Cholesterol LDL Cholesterol Direct HDL Cholesterol Urine pH Urine WBC (Auto) Urine Creatinine Urine Total Protein Fluid Total Protein Vancomycin Trough Rheumatoid Factor Complement C4 Miscellaneous Test Crossmatch 09/03/16 09/03/16 09/03/16 17:57 17:58 23:50 WBC RBC Hgb Hct MCV MCH MCHC RDW Plt Count Lymph % (Auto) [place] % (Auto) Lymph # [place] # Baso # Seg Neutrophils % Seg Neuts % (Manual) Lymphocytes % (Manual) Monocytes % (Manual) Eosinophils % (Manual) Basophils % (Manual) Nucleated RBC % Seg Neutrophils # Seg Neutrophils # Man Lymphocytes # (Manual) Monocytes # (Manual) Eosinophils # (Manual) Basophils # (Manual) PT INR Fibrinogen dRVVT Confirm Interp Factor V Activity POC ABG pH POC ABG pCO2 POC ABG pO2 ABG pO2 ABG HCO3 ABG Base Excess ABG Hemoglobin Oxyhemoglobin Sodium Potassium Chloride Carbon Dioxide BUN Creatinine Glucose POC Glucose 162 H 145 H Lactic Acid Calcium Phosphorus 2.30 L Magnesium Direct Bilirubin AST ALT Alkaline Phosphatase Lactate Dehydrogenase Troponin T C-Reactive Protein Total Protein Albumin Prealbumin Triglycerides Cholesterol LDL Cholesterol Direct HDL Cholesterol Urine pH Urine WBC (Auto) Urine Creatinine Urine Total Protein Fluid Total Protein Vancomycin Trough Rheumatoid Factor Complement C4 Miscellaneous Test Crossmatch 09/04/16 09/04/16 09/04/16 03:31 03:31 05:42 WBC RBC Hgb 9.7 L D Hct MCV 72 L MCH 23 L MCHC RDW 17.5 H Plt Count Lymph % (Auto) 11.1 L [place] % (Auto) Lymph # [place] # Baso # Seg Neutrophils % 84.3 H Seg Neuts % (Manual) Lymphocytes % (Manual) Monocytes % (Manual) Eosinophils % (Manual) Basophils % (Manual) Nucleated RBC % Seg Neutrophils # 8.9 H Seg Neutrophils # Man Lymphocytes # (Manual) Monocytes # (Manual) Eosinophils # (Manual) Basophils # (Manual) PT INR Fibrinogen dRVVT Confirm Interp Factor V Activity POC ABG pH POC ABG pCO2 POC ABG pO2 ABG pO2 ABG HCO3 ABG Base Excess ABG Hemoglobin Oxyhemoglobin Sodium 135 L Potassium 2.9 L* Chloride 97.2 L Carbon Dioxide 19 L BUN Creatinine 1.7 H Glucose 170 H POC Glucose 152 H Lactic Acid Calcium Phosphorus Magnesium Direct Bilirubin AST ALT Alkaline Phosphatase Lactate Dehydrogenase Troponin T C-Reactive Protein Total Protein Albumin Prealbumin Triglycerides 160 H Cholesterol LDL Cholesterol Direct HDL Cholesterol 31 L Urine pH Urine WBC (Auto) Urine Creatinine Urine Total Protein Fluid Total Protein Vancomycin Trough Rheumatoid Factor Complement C4 Miscellaneous Test Crossmatch 09/04/16 09/04/16 09/04/16 11:34 17:46 23:29 WBC RBC Hgb Hct MCV MCH MCHC RDW Plt Count Lymph % (Auto) [place] % (Auto) Lymph # [place] # Baso # Seg Neutrophils % Seg Neuts % (Manual) Lymphocytes % (Manual) Monocytes % (Manual) Eosinophils % (Manual) Basophils % (Manual) Nucleated RBC % Seg Neutrophils # Seg Neutrophils # Man Lymphocytes # (Manual) Monocytes # (Manual) Eosinophils # (Manual) Basophils # (Manual) PT INR Fibrinogen dRVVT Confirm Interp Factor V Activity POC ABG pH POC ABG pCO2 POC ABG pO2 ABG pO2 ABG HCO3 ABG Base Excess ABG Hemoglobin Oxyhemoglobin Sodium Potassium Chloride Carbon Dioxide BUN Creatinine Glucose POC Glucose 165 H 210 H 139 H Lactic Acid Calcium Phosphorus Magnesium Direct Bilirubin AST ALT Alkaline Phosphatase Lactate Dehydrogenase Troponin T C-Reactive Protein Total Protein Albumin Prealbumin Triglycerides Cholesterol LDL Cholesterol Direct HDL Cholesterol Urine pH Urine WBC (Auto) Urine Creatinine Urine Total Protein Fluid Total Protein Vancomycin Trough Rheumatoid Factor Complement C4 Miscellaneous Test Crossmatch 09/05/16 09/05/16 09/05/16 04:05 04:05 05:38 WBC RBC Hgb Hct MCV 76 L D MCH 23 L MCHC RDW 17.8 H Plt Count Lymph % (Auto) [place] % (Auto) Lymph # [place] # Baso # Seg Neutrophils % Seg Neuts % (Manual) Lymphocytes % (Manual) Monocytes % (Manual) Eosinophils % (Manual) Basophils % (Manual) Nucleated RBC % Seg Neutrophils # Seg Neutrophils # Man Lymphocytes # (Manual) Monocytes # (Manual) Eosinophils # (Manual) Basophils # (Manual) PT INR Fibrinogen dRVVT Confirm Interp Factor V Activity POC ABG pH POC ABG pCO2 POC ABG pO2 ABG pO2 ABG HCO3 ABG Base Excess ABG Hemoglobin Oxyhemoglobin Sodium 134 L Potassium Chloride Carbon Dioxide 18 L BUN Creatinine 1.8 H Glucose 192 H POC Glucose 175 H Lactic Acid Calcium Phosphorus Magnesium Direct Bilirubin AST ALT Alkaline Phosphatase Lactate Dehydrogenase Troponin T C-Reactive Protein Total Protein Albumin Prealbumin Triglycerides Cholesterol LDL Cholesterol Direct HDL Cholesterol Urine pH Urine WBC (Auto) Urine Creatinine Urine Total Protein Fluid Total Protein Vancomycin Trough Rheumatoid Factor Complement C4 Miscellaneous Test Crossmatch 09/05/16 09/05/16 09/05/16 11:38 17:48 23:22 WBC RBC Hgb Hct MCV MCH MCHC RDW Plt Count Lymph % (Auto) [place] % (Auto) Lymph # [place] # Baso # Seg Neutrophils % Seg Neuts % (Manual) Lymphocytes % (Manual) Monocytes % (Manual) Eosinophils % (Manual) Basophils % (Manual) Nucleated RBC % Seg Neutrophils # Seg Neutrophils # Man Lymphocytes # (Manual) Monocytes # (Manual) Eosinophils # (Manual) Basophils # (Manual) PT INR Fibrinogen dRVVT Confirm Interp Factor V Activity POC ABG pH POC ABG pCO2 POC ABG pO2 ABG pO2 ABG HCO3 ABG Base Excess ABG Hemoglobin Oxyhemoglobin Sodium Potassium Chloride Carbon Dioxide BUN Creatinine Glucose POC Glucose 164 H 186 H 195 H Lactic Acid Calcium Phosphorus Magnesium Direct Bilirubin AST ALT Alkaline Phosphatase Lactate Dehydrogenase Troponin T C-Reactive Protein Total Protein Albumin Prealbumin Triglycerides Cholesterol LDL Cholesterol Direct HDL Cholesterol Urine pH Urine WBC (Auto) Urine Creatinine Urine Total Protein Fluid Total Protein Vancomycin Trough Rheumatoid Factor Complement C4 Miscellaneous Test Crossmatch 09/06/16 09/06/16 09/06/16 04:12 05:59 07:32 WBC RBC Hgb Hct MCV MCH MCHC RDW Plt Count Lymph % (Auto) [place] % (Auto) Lymph # [place] # Baso # Seg Neutrophils % Seg Neuts % (Manual) Lymphocytes % (Manual) Monocytes % (Manual) Eosinophils % (Manual) Basophils % (Manual) Nucleated RBC % Seg Neutrophils # Seg Neutrophils # Man Lymphocytes # (Manual) Monocytes # (Manual) Eosinophils # (Manual) Basophils # (Manual) PT INR Fibrinogen dRVVT Confirm Interp Factor V Activity POC ABG pH 7.514 H POC ABG pCO2 29.1 L POC ABG pO2 72 L ABG pO2 ABG HCO3 ABG Base Excess ABG Hemoglobin Oxyhemoglobin Sodium 133 L Potassium 3.4 L Chloride 94.9 L Carbon Dioxide 19 L BUN 30 H Creatinine 2.1 H Glucose 139 H POC Glucose 146 H Lactic Acid Calcium Phosphorus Magnesium Direct Bilirubin AST ALT Alkaline Phosphatase Lactate Dehydrogenase Troponin T C-Reactive Protein Total Protein Albumin Prealbumin Triglycerides Cholesterol LDL Cholesterol Direct HDL Cholesterol Urine pH Urine WBC (Auto) Urine Creatinine Urine Total Protein Fluid Total Protein Vancomycin Trough Rheumatoid Factor Complement C4 Miscellaneous Test Crossmatch 09/06/16 09/06/16 09/06/16 11:57 17:58 19:02 WBC RBC Hgb Hct MCV MCH MCHC RDW Plt Count Lymph % (Auto) [place] % (Auto) Lymph # [place] # Baso # Seg Neutrophils % Seg Neuts % (Manual) Lymphocytes % (Manual) Monocytes % (Manual) Eosinophils % (Manual) Basophils % (Manual) Nucleated RBC % Seg Neutrophils # Seg Neutrophils # Man Lymphocytes # (Manual) Monocytes # (Manual) Eosinophils # (Manual) Basophils # (Manual) PT INR Fibrinogen dRVVT Confirm Interp Factor V Activity POC ABG pH 7.465 H POC ABG pCO2 32.0 L POC ABG pO2 ABG pO2 ABG HCO3 ABG Base Excess ABG Hemoglobin Oxyhemoglobin Sodium Potassium Chloride Carbon Dioxide BUN Creatinine Glucose POC Glucose 165 H 160 H Lactic Acid Calcium Phosphorus Magnesium Direct Bilirubin AST ALT Alkaline Phosphatase Lactate Dehydrogenase Troponin T C-Reactive Protein Total Protein Albumin Prealbumin Triglycerides Cholesterol LDL Cholesterol Direct HDL Cholesterol Urine pH Urine WBC (Auto) Urine Creatinine Urine Total Protein Fluid Total Protein Vancomycin Trough Rheumatoid Factor Complement C4 Miscellaneous Test Crossmatch 09/06/16 09/07/16 09/07/16 23:45 02:47 02:47 WBC RBC Hgb Hct MCV MCH MCHC RDW Plt Count Lymph % (Auto) [place] % (Auto) Lymph # [place] # Baso # Seg Neutrophils % Seg Neuts % (Manual) Lymphocytes % (Manual) Monocytes % (Manual) Eosinophils % (Manual) Basophils % (Manual) Nucleated RBC % Seg Neutrophils # Seg Neutrophils # Man Lymphocytes # (Manual) Monocytes # (Manual) Eosinophils # (Manual) Basophils # (Manual) PT INR Fibrinogen dRVVT Confirm Interp Factor V Activity POC ABG pH POC ABG pCO2 POC ABG pO2 ABG pO2 ABG HCO3 ABG Base Excess ABG Hemoglobin Oxyhemoglobin Sodium Potassium Chloride Carbon Dioxide BUN Creatinine Glucose POC Glucose 204 H Lactic Acid Calcium Phosphorus Magnesium Direct Bilirubin AST ALT Alkaline Phosphatase Lactate Dehydrogenase Troponin T C-Reactive Protein Total Protein Albumin Prealbumin Triglycerides Cholesterol LDL Cholesterol Direct HDL Cholesterol Urine pH Urine WBC (Auto) 68.0 H Urine Creatinine 106.1 H Urine Total Protein Fluid Total Protein Vancomycin Trough Rheumatoid Factor Complement C4 Miscellaneous Test Crossmatch 09/07/16 09/07/16 09/07/16 04:50 06:19 06:39 WBC RBC Hgb Hct MCV MCH MCHC RDW Plt Count Lymph % (Auto) [place] % (Auto) Lymph # [place] # Baso # Seg Neutrophils % Seg Neuts % (Manual) Lymphocytes % (Manual) Monocytes % (Manual) Eosinophils % (Manual) Basophils % (Manual) Nucleated RBC % Seg Neutrophils # Seg Neutrophils # Man Lymphocytes # (Manual) Monocytes # (Manual) Eosinophils # (Manual) Basophils # (Manual) PT INR Fibrinogen dRVVT Confirm Interp Factor V Activity POC ABG pH 7.457 H POC ABG pCO2 32.1 L POC ABG pO2 76 L ABG pO2 ABG HCO3 ABG Base Excess ABG Hemoglobin Oxyhemoglobin Sodium 132 L Potassium Chloride 94.7 L Carbon Dioxide BUN 53 H Creatinine 2.9 H Glucose 151 H POC Glucose 149 H Lactic Acid Calcium Phosphorus Magnesium Direct Bilirubin AST ALT Alkaline Phosphatase Lactate Dehydrogenase Troponin T C-Reactive Protein Total Protein Albumin Prealbumin Triglycerides Cholesterol LDL Cholesterol Direct HDL Cholesterol Urine pH Urine WBC (Auto) Urine Creatinine Urine Total Protein Fluid Total Protein Vancomycin Trough Rheumatoid Factor Complement C4 Miscellaneous Test Crossmatch 09/07/16 09/07/16 09/07/16 09:20 11:43 11:43 WBC 19.4 H RBC Hgb 8.3 L Hct 26.4 L D MCV 72 L D MCH 22 L MCHC RDW 17.9 H Plt Count Lymph % (Auto) 8.5 L [place] % (Auto) Lymph # [place] # 1.0 H Baso # Seg Neutrophils % 85.8 H Seg Neuts % (Manual) Lymphocytes % (Manual) Monocytes % (Manual) Eosinophils % (Manual) Basophils % (Manual) Nucleated RBC % Seg Neutrophils # 16.6 H Seg Neutrophils # Man Lymphocytes # (Manual) Monocytes # (Manual) Eosinophils # (Manual) Basophils # (Manual) PT INR Fibrinogen dRVVT Confirm Interp Factor V Activity POC ABG pH POC ABG pCO2 POC ABG pO2 ABG pO2 ABG HCO3 ABG Base Excess ABG Hemoglobin Oxyhemoglobin Sodium 134 L Potassium Chloride 97.2 L Carbon Dioxide 20 L BUN 58 H Creatinine 2.9 H Glucose 147 H POC Glucose Lactic Acid Calcium Phosphorus 2.40 L Magnesium 2.40 H Direct Bilirubin AST ALT Alkaline Phosphatase Lactate Dehydrogenase Troponin T C-Reactive Protein Total Protein 5.8 L Albumin 2.2 L Prealbumin Triglycerides Cholesterol LDL Cholesterol Direct HDL Cholesterol Urine pH Urine WBC (Auto) Urine Creatinine Urine Total Protein Fluid Total Protein Vancomycin Trough Rheumatoid Factor Complement C4 58 H Miscellaneous Test Crossmatch 09/07/16 09/07/16 09/07/16 11:50 16:00 17:31 WBC RBC Hgb Hct MCV MCH MCHC RDW Plt Count Lymph % (Auto) [place] % (Auto) Lymph # [place] # Baso # Seg Neutrophils % Seg Neuts % (Manual) Lymphocytes % (Manual) Monocytes % (Manual) Eosinophils % (Manual) Basophils % (Manual) Nucleated RBC % Seg Neutrophils # Seg Neutrophils # Man Lymphocytes # (Manual) Monocytes # (Manual) Eosinophils # (Manual) Basophils # (Manual) PT INR Fibrinogen dRVVT Confirm Interp Factor V Activity POC ABG pH POC ABG pCO2 POC ABG pO2 158 H ABG pO2 ABG HCO3 ABG Base Excess ABG Hemoglobin Oxyhemoglobin Sodium Potassium Chloride Carbon Dioxide BUN Creatinine Glucose POC Glucose 175 H Lactic Acid Calcium Phosphorus Magnesium Direct Bilirubin AST ALT Alkaline Phosphatase Lactate Dehydrogenase Troponin T C-Reactive Protein Total Protein Albumin Prealbumin Triglycerides Cholesterol LDL Cholesterol Direct HDL Cholesterol Urine pH Urine WBC (Auto) Urine Creatinine 66.3 H Urine Total Protein Fluid Total Protein Vancomycin Trough Rheumatoid Factor Complement C4 Miscellaneous Test Crossmatch 09/07/16 09/08/16 09/08/16 23:50 05:46 06:18 WBC 17.8 H RBC 3.58 L Hgb 8.1 L Hct 25.5 L MCV 71 L MCH 23 L MCHC RDW 18.4 H Plt Count Lymph % (Auto) [place] % (Auto) Lymph # [place] # Baso # Seg Neutrophils % Seg Neuts % (Manual) 92.0 H Lymphocytes % (Manual) 6.0 L Monocytes % (Manual) Eosinophils % (Manual) Basophils % (Manual) Nucleated RBC % Seg Neutrophils # Seg Neutrophils # Man 16.4 H Lymphocytes # (Manual) 1.1 L Monocytes # (Manual) Eosinophils # (Manual) Basophils # (Manual) PT INR Fibrinogen dRVVT Confirm Interp Factor V Activity POC ABG pH POC ABG pCO2 34.3 L POC ABG pO2 71 L ABG pO2 ABG HCO3 ABG Base Excess ABG Hemoglobin Oxyhemoglobin Sodium Potassium Chloride Carbon Dioxide BUN Creatinine Glucose POC Glucose 216 H Lactic Acid Calcium Phosphorus Magnesium Direct Bilirubin AST ALT Alkaline Phosphatase Lactate Dehydrogenase Troponin T C-Reactive Protein Total Protein Albumin Prealbumin Triglycerides Cholesterol LDL Cholesterol Direct HDL Cholesterol Urine pH Urine WBC (Auto) Urine Creatinine Urine Total Protein Fluid Total Protein Vancomycin Trough Rheumatoid Factor Complement C4 Miscellaneous Test Crossmatch 09/08/16 09/08/16 09/08/16 06:18 06:51 10:55 WBC RBC Hgb Hct MCV MCH MCHC RDW Plt Count Lymph % (Auto) [place] % (Auto) Lymph # [place] # Baso # Seg Neutrophils % Seg Neuts % (Manual) Lymphocytes % (Manual) Monocytes % (Manual) Eosinophils % (Manual) Basophils % (Manual) Nucleated RBC % Seg Neutrophils # Seg Neutrophils # Man Lymphocytes # (Manual) Monocytes # (Manual) Eosinophils # (Manual) Basophils # (Manual) PT INR Fibrinogen dRVVT Confirm Interp Factor V Activity POC ABG pH POC ABG pCO2 POC ABG pO2 ABG pO2 ABG HCO3 ABG Base Excess ABG Hemoglobin Oxyhemoglobin Sodium 133 L Potassium Chloride 96.9 L Carbon Dioxide 20 L BUN 63 H Creatinine 2.7 H Glucose 195 H POC Glucose 204 H 169 H Lactic Acid Calcium Phosphorus Magnesium Direct Bilirubin AST ALT Alkaline Phosphatase Lactate Dehydrogenase Troponin T C-Reactive Protein Total Protein Albumin Prealbumin Triglycerides Cholesterol LDL Cholesterol Direct HDL Cholesterol Urine pH Urine WBC (Auto) Urine Creatinine Urine Total Protein Fluid Total Protein Vancomycin Trough Rheumatoid Factor Complement C4 Miscellaneous Test Crossmatch 09/08/16 09/08/16 09/08/16 11:48 11:48 11:48 WBC RBC Hgb Hct MCV MCH MCHC RDW Plt Count Lymph % (Auto) [place] % (Auto) Lymph # [place] # Baso # Seg Neutrophils % Seg Neuts % (Manual) Lymphocytes % (Manual) Monocytes % (Manual) Eosinophils % (Manual) Basophils % (Manual) Nucleated RBC % Seg Neutrophils # Seg Neutrophils # Man Lymphocytes # (Manual) Monocytes # (Manual) Eosinophils # (Manual) Basophils # (Manual) PT INR Fibrinogen 750 H dRVVT Confirm Interp Factor V Activity POC ABG pH POC ABG pCO2 POC ABG pO2 ABG pO2 ABG HCO3 ABG Base Excess ABG Hemoglobin Oxyhemoglobin Sodium Potassium Chloride Carbon Dioxide BUN Creatinine Glucose POC Glucose Lactic Acid Calcium Phosphorus Magnesium Direct Bilirubin AST ALT Alkaline Phosphatase Lactate Dehydrogenase Troponin T C-Reactive Protein 15.70 H Total Protein Albumin Prealbumin Triglycerides Cholesterol LDL Cholesterol Direct HDL Cholesterol Urine pH Urine WBC (Auto) Urine Creatinine Urine Total Protein Fluid Total Protein Vancomycin Trough Rheumatoid Factor 24 H Complement C4 Miscellaneous Test Crossmatch 09/08/16 09/08/16 09/09/16 15:35 18:25 00:24 WBC RBC Hgb Hct MCV MCH MCHC RDW Plt Count Lymph % (Auto) [place] % (Auto) Lymph # [place] # Baso # Seg Neutrophils % Seg Neuts % (Manual) Lymphocytes % (Manual) Monocytes % (Manual) Eosinophils % (Manual) Basophils % (Manual) Nucleated RBC % Seg Neutrophils # Seg Neutrophils # Man Lymphocytes # (Manual) Monocytes # (Manual) Eosinophils # (Manual) Basophils # (Manual) PT INR Fibrinogen dRVVT Confirm Interp Factor V Activity 182 H POC ABG pH POC ABG pCO2 POC ABG pO2 ABG pO2 ABG HCO3 ABG Base Excess ABG Hemoglobin Oxyhemoglobin Sodium Potassium Chloride Carbon Dioxide BUN Creatinine Glucose POC Glucose 184 H 216 H Lactic Acid Calcium Phosphorus Magnesium Direct Bilirubin AST ALT Alkaline Phosphatase Lactate Dehydrogenase Troponin T C-Reactive Protein Total Protein Albumin Prealbumin Triglycerides Cholesterol LDL Cholesterol Direct HDL Cholesterol Urine pH Urine WBC (Auto) Urine Creatinine Urine Total Protein Fluid Total Protein Vancomycin Trough Rheumatoid Factor Complement C4 Miscellaneous Test Crossmatch 09/09/16 09/09/16 09/09/16 03:00 03:00 04:04 WBC 27.9 H RBC Hgb 8.7 L Hct 28.1 L MCV 72 L MCH 22 L MCHC RDW 18.4 H Plt Count 485 H Lymph % (Auto) [place] % (Auto) Lymph # [place] # Baso # Seg Neutrophils % Seg Neuts % (Manual) 77.0 H Lymphocytes % (Manual) 9.0 L Monocytes % (Manual) Eosinophils % (Manual) Basophils % (Manual) Nucleated RBC % Seg Neutrophils # Seg Neutrophils # Man 21.5 H Lymphocytes # (Manual) Monocytes # (Manual) 2.0 H Eosinophils # (Manual) Basophils # (Manual) PT INR Fibrinogen dRVVT Confirm Interp Factor V Activity POC ABG pH POC ABG pCO2 POC ABG pO2 121 H ABG pO2 ABG HCO3 ABG Base Excess ABG Hemoglobin Oxyhemoglobin Sodium 135 L Potassium Chloride 96.3 L Carbon Dioxide 21 L BUN 83 H Creatinine 3.0 H Glucose 135 H POC Glucose Lactic Acid Calcium Phosphorus Magnesium Direct Bilirubin AST ALT Alkaline Phosphatase Lactate Dehydrogenase Troponin T C-Reactive Protein Total Protein Albumin Prealbumin Triglycerides Cholesterol LDL Cholesterol Direct HDL Cholesterol Urine pH Urine WBC (Auto) Urine Creatinine Urine Total Protein Fluid Total Protein Vancomycin Trough Rheumatoid Factor Complement C4 Miscellaneous Test Crossmatch 09/09/16 09/09/16 09/09/16 05:41 11:55 14:13 WBC RBC Hgb Hct MCV MCH MCHC RDW Plt Count Lymph % (Auto) [place] % (Auto) Lymph # [place] # Baso # Seg Neutrophils % Seg Neuts % (Manual) Lymphocytes % (Manual) Monocytes % (Manual) Eosinophils % (Manual) Basophils % (Manual) Nucleated RBC % Seg Neutrophils # Seg Neutrophils # Man Lymphocytes # (Manual) Monocytes # (Manual) Eosinophils # (Manual) Basophils # (Manual) PT INR Fibrinogen dRVVT Confirm Interp Factor V Activity POC ABG pH POC ABG pCO2 POC ABG pO2 ABG pO2 ABG HCO3 ABG Base Excess ABG Hemoglobin Oxyhemoglobin Sodium Potassium Chloride Carbon Dioxide BUN Creatinine Glucose POC Glucose 155 H 186 H Lactic Acid Calcium Phosphorus Magnesium Direct Bilirubin AST ALT Alkaline Phosphatase Lactate Dehydrogenase Troponin T C-Reactive Protein Total Protein Albumin Prealbumin Triglycerides Cholesterol LDL Cholesterol Direct HDL Cholesterol Urine pH Urine WBC (Auto) 25.0 H Urine Creatinine Urine Total Protein Fluid Total Protein Vancomycin Trough Rheumatoid Factor Complement C4 Miscellaneous Test Crossmatch 09/09/16 09/09/16 09/10/16 17:33 23:13 05:09 WBC RBC Hgb Hct MCV MCH MCHC RDW Plt Count Lymph % (Auto) [place] % (Auto) Lymph # [place] # Baso # Seg Neutrophils % Seg Neuts % (Manual) Lymphocytes % (Manual) Monocytes % (Manual) Eosinophils % (Manual) Basophils % (Manual) Nucleated RBC % Seg Neutrophils # Seg Neutrophils # Man Lymphocytes # (Manual) Monocytes # (Manual) Eosinophils # (Manual) Basophils # (Manual) PT INR Fibrinogen dRVVT Confirm Interp Factor V Activity POC ABG pH POC ABG pCO2 POC ABG pO2 74 L ABG pO2 ABG HCO3 ABG Base Excess ABG Hemoglobin Oxyhemoglobin Sodium Potassium Chloride Carbon Dioxide BUN Creatinine Glucose POC Glucose 211 H 215 H Lactic Acid Calcium Phosphorus Magnesium Direct Bilirubin AST ALT Alkaline Phosphatase Lactate Dehydrogenase Troponin T C-Reactive Protein Total Protein Albumin Prealbumin Triglycerides Cholesterol LDL Cholesterol Direct HDL Cholesterol Urine pH Urine WBC (Auto) Urine Creatinine Urine Total Protein Fluid Total Protein Vancomycin Trough Rheumatoid Factor Complement C4 Miscellaneous Test Crossmatch 09/10/16 09/10/16 09/10/16 05:17 05:17 11:31 WBC 15.8 H RBC 3.25 L Hgb 7.3 L Hct 22.9 L MCV 71 L MCH 23 L MCHC RDW 18.4 H Plt Count Lymph % (Auto) [place] % (Auto) Lymph # [place] # Baso # Seg Neutrophils % Seg Neuts % (Manual) 91.0 H Lymphocytes % (Manual) 4.0 L Monocytes % (Manual) Eosinophils % (Manual) Basophils % (Manual) Nucleated RBC % Seg Neutrophils # Seg Neutrophils # Man 14.4 H Lymphocytes # (Manual) 0.6 L Monocytes # (Manual) Eosinophils # (Manual) Basophils # (Manual) PT INR Fibrinogen dRVVT Confirm Interp Factor V Activity POC ABG pH POC ABG pCO2 POC ABG pO2 ABG pO2 ABG HCO3 ABG Base Excess ABG Hemoglobin Oxyhemoglobin Sodium Potassium Chloride Carbon Dioxide 21 L BUN 93 H Creatinine 2.9 H Glucose 146 H POC Glucose 188 H Lactic Acid Calcium 8.1 L Phosphorus Magnesium Direct Bilirubin AST ALT Alkaline Phosphatase Lactate Dehydrogenase Troponin T C-Reactive Protein Total Protein Albumin Prealbumin Triglycerides Cholesterol LDL Cholesterol Direct HDL Cholesterol Urine pH Urine WBC (Auto) Urine Creatinine Urine Total Protein Fluid Total Protein Vancomycin Trough Rheumatoid Factor Complement C4 Miscellaneous Test Crossmatch 09/10/16 09/10/16 09/10/16 13:17 17:20 23:32 WBC RBC Hgb Hct MCV MCH MCHC RDW Plt Count Lymph % (Auto) [place] % (Auto) Lymph # [place] # Baso # Seg Neutrophils % Seg Neuts % (Manual) Lymphocytes % (Manual) Monocytes % (Manual) Eosinophils % (Manual) Basophils % (Manual) Nucleated RBC % Seg Neutrophils # Seg Neutrophils # Man Lymphocytes # (Manual) Monocytes # (Manual) Eosinophils # (Manual) Basophils # (Manual) PT INR Fibrinogen dRVVT Confirm Interp Factor V Activity POC ABG pH POC ABG pCO2 POC ABG pO2 ABG pO2 ABG HCO3 ABG Base Excess ABG Hemoglobin Oxyhemoglobin Sodium Potassium Chloride Carbon Dioxide BUN Creatinine Glucose POC Glucose 199 H 186 H Lactic Acid Calcium Phosphorus Magnesium Direct Bilirubin AST ALT Alkaline Phosphatase Lactate Dehydrogenase Troponin T C-Reactive Protein Total Protein Albumin Prealbumin Triglycerides Cholesterol LDL Cholesterol Direct HDL Cholesterol Urine pH Urine WBC (Auto) Urine Creatinine Urine Total Protein Fluid Total Protein Vancomycin Trough Rheumatoid Factor Complement C4 Miscellaneous Test Crossmatch See Detail 09/11/16 09/11/16 09/11/16 05:10 05:10 05:17 WBC 28.4 H RBC Hgb 9.2 L Hct 29.3 L D MCV 73 L MCH 23 L MCHC RDW 18.9 H Plt Count 452 H Lymph % (Auto) [place] % (Auto) Lymph # [place] # Baso # Seg Neutrophils % Seg Neuts % (Manual) 89.5 H Lymphocytes % (Manual) 2.0 L Monocytes % (Manual) Eosinophils % (Manual) Basophils % (Manual) Nucleated RBC % Seg Neutrophils # Seg Neutrophils # Man 25.4 H Lymphocytes # (Manual) 0.6 L Monocytes # (Manual) 1.3 H Eosinophils # (Manual) Basophils # (Manual) PT INR Fibrinogen dRVVT Confirm Interp Factor V Activity POC ABG pH POC ABG pCO2 POC ABG pO2 ABG pO2 ABG HCO3 ABG Base Excess ABG Hemoglobin Oxyhemoglobin Sodium 136 L Potassium Chloride Carbon Dioxide 18 L BUN 107 H Creatinine 2.6 H Glucose 187 H POC Glucose 230 H Lactic Acid Calcium 8.3 L Phosphorus Magnesium Direct Bilirubin AST ALT Alkaline Phosphatase Lactate Dehydrogenase Troponin T C-Reactive Protein Total Protein Albumin Prealbumin Triglycerides Cholesterol LDL Cholesterol Direct HDL Cholesterol Urine pH Urine WBC (Auto) Urine Creatinine Urine Total Protein Fluid Total Protein Vancomycin Trough Rheumatoid Factor Complement C4 Miscellaneous Test Crossmatch 09/11/16 09/11/16 09/11/16 05:55 12:02 17:32 WBC RBC Hgb Hct MCV MCH MCHC RDW Plt Count Lymph % (Auto) [place] % (Auto) Lymph # [place] # Baso # Seg Neutrophils % Seg Neuts % (Manual) Lymphocytes % (Manual) Monocytes % (Manual) Eosinophils % (Manual) Basophils % (Manual) Nucleated RBC % Seg Neutrophils # Seg Neutrophils # Man Lymphocytes # (Manual) Monocytes # (Manual) Eosinophils # (Manual) Basophils # (Manual) PT INR Fibrinogen dRVVT Confirm Interp Factor V Activity POC ABG pH POC ABG pCO2 33.8 L POC ABG pO2 ABG pO2 ABG HCO3 ABG Base Excess ABG Hemoglobin Oxyhemoglobin Sodium Potassium Chloride Carbon Dioxide BUN Creatinine Glucose POC Glucose 191 H 239 H Lactic Acid Calcium Phosphorus Magnesium Direct Bilirubin AST ALT Alkaline Phosphatase Lactate Dehydrogenase Troponin T C-Reactive Protein Total Protein Albumin Prealbumin Triglycerides Cholesterol LDL Cholesterol Direct HDL Cholesterol Urine pH Urine WBC (Auto) Urine Creatinine Urine Total Protein Fluid Total Protein Vancomycin Trough Rheumatoid Factor Complement C4 Miscellaneous Test Crossmatch 09/11/16 09/12/16 09/12/16 23:52 05:09 05:32 WBC RBC Hgb Hct MCV MCH MCHC RDW Plt Count Lymph % (Auto) [place] % (Auto) Lymph # [place] # Baso # Seg Neutrophils % Seg Neuts % (Manual) Lymphocytes % (Manual) Monocytes % (Manual) Eosinophils % (Manual) Basophils % (Manual) Nucleated RBC % Seg Neutrophils # Seg Neutrophils # Man Lymphocytes # (Manual) Monocytes # (Manual) Eosinophils # (Manual) Basophils # (Manual) PT INR Fibrinogen dRVVT Confirm Interp Factor V Activity POC ABG pH POC ABG pCO2 34.6 L POC ABG pO2 ABG pO2 ABG HCO3 ABG Base Excess ABG Hemoglobin Oxyhemoglobin Sodium Potassium Chloride Carbon Dioxide BUN Creatinine Glucose POC Glucose 265 H 184 H Lactic Acid Calcium Phosphorus Magnesium Direct Bilirubin AST ALT Alkaline Phosphatase Lactate Dehydrogenase Troponin T C-Reactive Protein Total Protein Albumin Prealbumin Triglycerides Cholesterol LDL Cholesterol Direct HDL Cholesterol Urine pH Urine WBC (Auto) Urine Creatinine Urine Total Protein Fluid Total Protein Vancomycin Trough Rheumatoid Factor Complement C4 Miscellaneous Test Crossmatch 09/12/16 09/12/16 09/12/16 06:45 06:45 07:22 WBC 31.7 H RBC 3.54 L Hgb 8.3 L Hct 25.9 L MCV 73 L MCH 23 L MCHC RDW 18.9 H Plt Count Lymph % (Auto) [place] % (Auto) Lymph # [place] # Baso # Seg Neutrophils % Seg Neuts % (Manual) 88.5 H Lymphocytes % (Manual) 4.5 L Monocytes % (Manual) Eosinophils % (Manual) Basophils % (Manual) Nucleated RBC % Seg Neutrophils # Seg Neutrophils # Man 28.1 H Lymphocytes # (Manual) Monocytes # (Manual) 1.0 H Eosinophils # (Manual) Basophils # (Manual) PT INR Fibrinogen dRVVT Confirm Interp Factor V Activity POC ABG pH POC ABG pCO2 POC ABG pO2 ABG pO2 ABG HCO3 ABG Base Excess ABG Hemoglobin Oxyhemoglobin Sodium Potassium Chloride Carbon Dioxide 20 L BUN 115 H Creatinine 2.7 H Glucose 165 H POC Glucose Lactic Acid Calcium 8.0 L Phosphorus Magnesium Direct Bilirubin AST ALT Alkaline Phosphatase Lactate Dehydrogenase Troponin T C-Reactive Protein Total Protein Albumin Prealbumin Triglycerides 217 H Cholesterol LDL Cholesterol Direct HDL Cholesterol Urine pH Urine WBC (Auto) Urine Creatinine Urine Total Protein Fluid Total Protein Vancomycin Trough Rheumatoid Factor Complement C4 Miscellaneous Test Crossmatch 09/12/16 09/12/16 09/12/16 07:22 09:59 12:21 WBC RBC Hgb Hct MCV MCH MCHC RDW Plt Count Lymph % (Auto) [place] % (Auto) Lymph # [place] # Baso # Seg Neutrophils % Seg Neuts % (Manual) Lymphocytes % (Manual) Monocytes % (Manual) Eosinophils % (Manual) Basophils % (Manual) Nucleated RBC % Seg Neutrophils # Seg Neutrophils # Man Lymphocytes # (Manual) Monocytes # (Manual) Eosinophils # (Manual) Basophils # (Manual) PT INR Fibrinogen dRVVT Confirm Interp Positive H Factor V Activity POC ABG pH POC ABG pCO2 POC ABG pO2 ABG pO2 ABG HCO3 ABG Base Excess ABG Hemoglobin Oxyhemoglobin Sodium Potassium Chloride Carbon Dioxide BUN Creatinine Glucose POC Glucose 224 H Lactic Acid Calcium Phosphorus Magnesium Direct Bilirubin AST ALT Alkaline Phosphatase Lactate Dehydrogenase Troponin T C-Reactive Protein 1.70 H Total Protein Albumin Prealbumin Triglycerides Cholesterol LDL Cholesterol Direct HDL Cholesterol Urine pH Urine WBC (Auto) Urine Creatinine Urine Total Protein Fluid Total Protein Vancomycin Trough Rheumatoid Factor Complement C4 Miscellaneous Test Crossmatch 09/12/16 09/12/16 09/13/16 16:51 23:28 04:00 WBC 45.0 H* RBC Hgb 9.4 L Hct MCV 75 L MCH 23 L MCHC RDW 19.0 H Plt Count 470 H Lymph % (Auto) [place] % (Auto) Lymph # [place] # Baso # Seg Neutrophils % Seg Neuts % (Manual) 89.0 H Lymphocytes % (Manual) 5.0 L Monocytes % (Manual) Eosinophils % (Manual) Basophils % (Manual) Nucleated RBC % Seg Neutrophils # Seg Neutrophils # Man 40.1 H Lymphocytes # (Manual) Monocytes # (Manual) Eosinophils # (Manual) Basophils # (Manual) PT INR Fibrinogen dRVVT Confirm Interp Factor V Activity POC ABG pH POC ABG pCO2 POC ABG pO2 ABG pO2 ABG HCO3 ABG Base Excess ABG Hemoglobin Oxyhemoglobin Sodium Potassium Chloride Carbon Dioxide BUN Creatinine Glucose POC Glucose 169 H 150 H Lactic Acid Calcium Phosphorus Magnesium Direct Bilirubin AST ALT Alkaline Phosphatase Lactate Dehydrogenase Troponin T C-Reactive Protein Total Protein Albumin Prealbumin Triglycerides Cholesterol LDL Cholesterol Direct HDL Cholesterol Urine pH Urine WBC (Auto) Urine Creatinine Urine Total Protein Fluid Total Protein Vancomycin Trough Rheumatoid Factor Complement C4 Miscellaneous Test Crossmatch 09/13/16 09/13/16 09/13/16 04:00 11:26 17:31 WBC RBC Hgb Hct MCV MCH MCHC RDW Plt Count Lymph % (Auto) [place] % (Auto) Lymph # [place] # Baso # Seg Neutrophils % Seg Neuts % (Manual) Lymphocytes % (Manual) Monocytes % (Manual) Eosinophils % (Manual) Basophils % (Manual) Nucleated RBC % Seg Neutrophils # Seg Neutrophils # Man Lymphocytes # (Manual) Monocytes # (Manual) Eosinophils # (Manual) Basophils # (Manual) PT INR Fibrinogen dRVVT Confirm Interp Factor V Activity POC ABG pH POC ABG pCO2 POC ABG pO2 ABG pO2 ABG HCO3 ABG Base Excess ABG Hemoglobin Oxyhemoglobin Sodium Potassium Chloride Carbon Dioxide 20 L BUN 116 H Creatinine 3.0 H Glucose 172 H POC Glucose 140 H 183 H Lactic Acid Calcium Phosphorus Magnesium Direct Bilirubin AST ALT Alkaline Phosphatase Lactate Dehydrogenase Troponin T C-Reactive Protein Total Protein 6.2 L Albumin 2.9 L Prealbumin Triglycerides Cholesterol LDL Cholesterol Direct HDL Cholesterol Urine pH Urine WBC (Auto) Urine Creatinine Urine Total Protein Fluid Total Protein Vancomycin Trough Rheumatoid Factor Complement C4 Miscellaneous Test Crossmatch 09/13/16 09/14/16 09/14/16 23:23 04:06 04:07 WBC 29.4 H RBC Hgb 8.9 L Hct 27.3 L MCV 75 L MCH 24 L MCHC RDW 19.1 H Plt Count Lymph % (Auto) [place] % (Auto) Lymph # [place] # Baso # Seg Neutrophils % Seg Neuts % (Manual) 84.0 H Lymphocytes % (Manual) 6.0 L Monocytes % (Manual) 9.0 H Eosinophils % (Manual) Basophils % (Manual) Nucleated RBC % Seg Neutrophils # Seg Neutrophils # Man 24.7 H Lymphocytes # (Manual) Monocytes # (Manual) 2.6 H Eosinophils # (Manual) Basophils # (Manual) PT INR Fibrinogen dRVVT Confirm Interp Factor V Activity POC ABG pH 7.342 L POC ABG pCO2 POC ABG pO2 116 H ABG pO2 ABG HCO3 ABG Base Excess ABG Hemoglobin Oxyhemoglobin Sodium Potassium Chloride Carbon Dioxide BUN Creatinine Glucose POC Glucose 154 H Lactic Acid Calcium Phosphorus Magnesium Direct Bilirubin AST ALT Alkaline Phosphatase Lactate Dehydrogenase Troponin T C-Reactive Protein Total Protein Albumin Prealbumin Triglycerides Cholesterol LDL Cholesterol Direct HDL Cholesterol Urine pH Urine WBC (Auto) Urine Creatinine Urine Total Protein Fluid Total Protein Vancomycin Trough Rheumatoid Factor Complement C4 Miscellaneous Test Crossmatch 09/14/16 09/14/16 09/14/16 04:07 05:29 12:19 WBC RBC Hgb Hct MCV MCH MCHC RDW Plt Count Lymph % (Auto) [place] % (Auto) Lymph # [place] # Baso # Seg Neutrophils % Seg Neuts % (Manual) Lymphocytes % (Manual) Monocytes % (Manual) Eosinophils % (Manual) Basophils % (Manual) Nucleated RBC % Seg Neutrophils # Seg Neutrophils # Man Lymphocytes # (Manual) Monocytes # (Manual) Eosinophils # (Manual) Basophils # (Manual) PT INR Fibrinogen dRVVT Confirm Interp Factor V Activity POC ABG pH POC ABG pCO2 POC ABG pO2 ABG pO2 ABG HCO3 ABG Base Excess ABG Hemoglobin Oxyhemoglobin Sodium 136 L Potassium Chloride Carbon Dioxide 18 L BUN 121 H Creatinine 2.8 H Glucose 214 H POC Glucose 239 H 181 H Lactic Acid Calcium Phosphorus Magnesium Direct Bilirubin AST ALT Alkaline Phosphatase Lactate Dehydrogenase Troponin T C-Reactive Protein Total Protein Albumin Prealbumin Triglycerides Cholesterol LDL Cholesterol Direct HDL Cholesterol Urine pH Urine WBC (Auto) Urine Creatinine Urine Total Protein Fluid Total Protein Vancomycin Trough Rheumatoid Factor Complement C4 Miscellaneous Test Crossmatch 09/14/16 09/14/16 09/15/16 18:12 23:37 05:00 WBC 26.1 H RBC 3.05 L Hgb 7.2 L Hct 22.9 L MCV 75 L MCH 24 L MCHC RDW 19.0 H Plt Count Lymph % (Auto) [place] % (Auto) Lymph # [place] # Baso # Seg Neutrophils % Seg Neuts % (Manual) Lymphocytes % (Manual) Monocytes % (Manual) Eosinophils % (Manual) Basophils % (Manual) Nucleated RBC % Seg Neutrophils # Seg Neutrophils # Man Lymphocytes # (Manual) Monocytes # (Manual) Eosinophils # (Manual) Basophils # (Manual) PT INR Fibrinogen dRVVT Confirm Interp Factor V Activity POC ABG pH POC ABG pCO2 POC ABG pO2 ABG pO2 ABG HCO3 ABG Base Excess ABG Hemoglobin Oxyhemoglobin Sodium Potassium Chloride Carbon Dioxide BUN Creatinine Glucose POC Glucose 266 H 154 H Lactic Acid Calcium Phosphorus Magnesium Direct Bilirubin AST ALT Alkaline Phosphatase Lactate Dehydrogenase Troponin T C-Reactive Protein Total Protein Albumin Prealbumin Triglycerides Cholesterol LDL Cholesterol Direct HDL Cholesterol Urine pH Urine WBC (Auto) Urine Creatinine Urine Total Protein Fluid Total Protein Vancomycin Trough Rheumatoid Factor Complement C4 Miscellaneous Test Crossmatch 09/15/16 09/15/16 09/15/16 05:00 05:17 12:45 WBC RBC Hgb Hct MCV MCH MCHC RDW Plt Count Lymph % (Auto) [place] % (Auto) Lymph # [place] # Baso # Seg Neutrophils % Seg Neuts % (Manual) Lymphocytes % (Manual) Monocytes % (Manual) Eosinophils % (Manual) Basophils % (Manual) Nucleated RBC % Seg Neutrophils # Seg Neutrophils # Man Lymphocytes # (Manual) Monocytes # (Manual) Eosinophils # (Manual) Basophils # (Manual) PT INR Fibrinogen dRVVT Confirm Interp Factor V Activity POC ABG pH POC ABG pCO2 POC ABG pO2 ABG pO2 ABG HCO3 ABG Base Excess ABG Hemoglobin Oxyhemoglobin Sodium Potassium 5.2 H Chloride Carbon Dioxide 18 L BUN 139 H Creatinine 3.7 H Glucose 227 H POC Glucose 226 H 244 H Lactic Acid Calcium 8.3 L Phosphorus Magnesium Direct Bilirubin AST ALT Alkaline Phosphatase Lactate Dehydrogenase Troponin T C-Reactive Protein Total Protein Albumin Prealbumin Triglycerides Cholesterol LDL Cholesterol Direct HDL Cholesterol Urine pH Urine WBC (Auto) Urine Creatinine Urine Total Protein Fluid Total Protein Vancomycin Trough Rheumatoid Factor Complement C4 Miscellaneous Test Crossmatch 09/15/16 09/15/16 09/15/16 14:32 17:33 23:35 WBC RBC Hgb Hct MCV MCH MCHC RDW Plt Count Lymph % (Auto) [place] % (Auto) Lymph # [place] # Baso # Seg Neutrophils % Seg Neuts % (Manual) Lymphocytes % (Manual) Monocytes % (Manual) Eosinophils % (Manual) Basophils % (Manual) Nucleated RBC % Seg Neutrophils # Seg Neutrophils # Man Lymphocytes # (Manual) Monocytes # (Manual) Eosinophils # (Manual) Basophils # (Manual) PT INR Fibrinogen dRVVT Confirm Interp Factor V Activity POC ABG pH POC ABG pCO2 27.7 L POC ABG pO2 120 H ABG pO2 ABG HCO3 ABG Base Excess ABG Hemoglobin Oxyhemoglobin Sodium Potassium Chloride Carbon Dioxide BUN Creatinine Glucose POC Glucose 232 H 167 H Lactic Acid Calcium Phosphorus Magnesium Direct Bilirubin AST ALT Alkaline Phosphatase Lactate Dehydrogenase Troponin T C-Reactive Protein Total Protein Albumin Prealbumin Triglycerides Cholesterol LDL Cholesterol Direct HDL Cholesterol Urine pH Urine WBC (Auto) Urine Creatinine Urine Total Protein Fluid Total Protein Vancomycin Trough Rheumatoid Factor Complement C4 Miscellaneous Test Crossmatch 09/16/16 09/16/16 09/16/16 03:58 10:27 10:27 WBC 19.0 H RBC 2.77 L Hgb 6.5 L Hct 20.9 L MCV 76 L MCH 23 L MCHC RDW 19.3 H Plt Count Lymph % (Auto) 11.0 L [place] % (Auto) Lymph # [place] # 1.1 H Baso # Seg Neutrophils % 82.5 H Seg Neuts % (Manual) Lymphocytes % (Manual) Monocytes % (Manual) Eosinophils % (Manual) Basophils % (Manual) Nucleated RBC % Seg Neutrophils # 15.7 H Seg Neutrophils # Man Lymphocytes # (Manual) Monocytes # (Manual) Eosinophils # (Manual) Basophils # (Manual) PT INR Fibrinogen dRVVT Confirm Interp Factor V Activity POC ABG pH POC ABG pCO2 POC ABG pO2 ABG pO2 ABG HCO3 ABG Base Excess ABG Hemoglobin Oxyhemoglobin Sodium Potassium Chloride 109.3 H Carbon Dioxide 18 L BUN 139 H Creatinine 4.1 H Glucose 144 H POC Glucose 146 H Lactic Acid Calcium 8.1 L Phosphorus Magnesium Direct Bilirubin AST ALT Alkaline Phosphatase Lactate Dehydrogenase Troponin T C-Reactive Protein Total Protein Albumin Prealbumin Triglycerides Cholesterol LDL Cholesterol Direct HDL Cholesterol Urine pH Urine WBC (Auto) Urine Creatinine Urine Total Protein Fluid Total Protein Vancomycin Trough Rheumatoid Factor Complement C4 Miscellaneous Test Crossmatch 09/16/16 09/16/16 09/16/16 12:04 12:10 13:55 WBC RBC Hgb Hct MCV MCH MCHC RDW Plt Count Lymph % (Auto) [place] % (Auto) Lymph # [place] # Baso # Seg Neutrophils % Seg Neuts % (Manual) Lymphocytes % (Manual) Monocytes % (Manual) Eosinophils % (Manual) Basophils % (Manual) Nucleated RBC % Seg Neutrophils # Seg Neutrophils # Man Lymphocytes # (Manual) Monocytes # (Manual) Eosinophils # (Manual) Basophils # (Manual) PT INR Fibrinogen dRVVT Confirm Interp Factor V Activity POC ABG pH POC ABG pCO2 32.9 L POC ABG pO2 ABG pO2 ABG HCO3 ABG Base Excess ABG Hemoglobin Oxyhemoglobin Sodium Potassium Chloride Carbon Dioxide BUN Creatinine Glucose POC Glucose 185 H Lactic Acid Calcium Phosphorus Magnesium Direct Bilirubin AST ALT Alkaline Phosphatase Lactate Dehydrogenase Troponin T C-Reactive Protein Total Protein Albumin Prealbumin Triglycerides Cholesterol LDL Cholesterol Direct HDL Cholesterol Urine pH Urine WBC (Auto) Urine Creatinine Urine Total Protein Fluid Total Protein Vancomycin Trough Rheumatoid Factor Complement C4 Miscellaneous Test Crossmatch See Detail 09/16/16 09/16/16 09/16/16 17:55 19:19 23:48 WBC RBC Hgb Hct MCV MCH MCHC RDW Plt Count Lymph % (Auto) [place] % (Auto) Lymph # [place] # Baso # Seg Neutrophils % Seg Neuts % (Manual) Lymphocytes % (Manual) Monocytes % (Manual) Eosinophils % (Manual) Basophils % (Manual) Nucleated RBC % Seg Neutrophils # Seg Neutrophils # Man Lymphocytes # (Manual) Monocytes # (Manual) Eosinophils # (Manual) Basophils # (Manual) PT INR Fibrinogen dRVVT Confirm Interp Factor V Activity POC ABG pH POC ABG pCO2 POC ABG pO2 ABG pO2 ABG HCO3 ABG Base Excess ABG Hemoglobin Oxyhemoglobin Sodium Potassium Chloride Carbon Dioxide BUN Creatinine Glucose POC Glucose 222 H 107 H Lactic Acid Calcium Phosphorus Magnesium Direct Bilirubin AST ALT Alkaline Phosphatase Lactate Dehydrogenase Troponin T C-Reactive Protein Total Protein Albumin Prealbumin Triglycerides Cholesterol LDL Cholesterol Direct HDL Cholesterol Urine pH Urine WBC (Auto) Urine Creatinine 47.4 H Urine Total Protein 16 H Fluid Total Protein Vancomycin Trough Rheumatoid Factor Complement C4 Miscellaneous Test Crossmatch 09/17/16 09/17/16 09/17/16 03:45 03:45 04:55 WBC 19.6 H RBC 3.41 L Hgb 8.5 L Hct 26.7 L MCV 78 L MCH 25 L MCHC RDW 19.9 H Plt Count Lymph % (Auto) 9.3 L [place] % (Auto) Lymph # [place] # 1.2 H Baso # Seg Neutrophils % 83.9 H Seg Neuts % (Manual) Lymphocytes % (Manual) Monocytes % (Manual) Eosinophils % (Manual) Basophils % (Manual) Nucleated RBC % Seg Neutrophils # 16.4 H Seg Neutrophils # Man Lymphocytes # (Manual) Monocytes # (Manual) Eosinophils # (Manual) Basophils # (Manual) PT INR Fibrinogen dRVVT Confirm Interp Factor V Activity POC ABG pH POC ABG pCO2 POC ABG pO2 ABG pO2 ABG HCO3 ABG Base Excess ABG Hemoglobin Oxyhemoglobin Sodium 146 H Potassium 5.1 H Chloride 110.9 H Carbon Dioxide 16 L BUN 146 H Creatinine 4.0 H Glucose 108 H POC Glucose 133 H Lactic Acid Calcium Phosphorus Magnesium 3.00 H Direct Bilirubin AST ALT Alkaline Phosphatase Lactate Dehydrogenase Troponin T C-Reactive Protein Total Protein Albumin Prealbumin Triglycerides Cholesterol LDL Cholesterol Direct HDL Cholesterol Urine pH Urine WBC (Auto) Urine Creatinine Urine Total Protein Fluid Total Protein Vancomycin Trough Rheumatoid Factor Complement C4 Miscellaneous Test Crossmatch 09/17/16 09/17/16 09/17/16 11:15 17:33 23:47 WBC RBC Hgb Hct MCV MCH MCHC RDW Plt Count Lymph % (Auto) [place] % (Auto) Lymph # [place] # Baso # Seg Neutrophils % Seg Neuts % (Manual) Lymphocytes % (Manual) Monocytes % (Manual) Eosinophils % (Manual) Basophils % (Manual) Nucleated RBC % Seg Neutrophils # Seg Neutrophils # Man Lymphocytes # (Manual) Monocytes # (Manual) Eosinophils # (Manual) Basophils # (Manual) PT INR Fibrinogen dRVVT Confirm Interp Factor V Activity POC ABG pH POC ABG pCO2 POC ABG pO2 ABG pO2 ABG HCO3 ABG Base Excess ABG Hemoglobin Oxyhemoglobin Sodium Potassium Chloride Carbon Dioxide BUN Creatinine Glucose POC Glucose 176 H 246 H 148 H Lactic Acid Calcium Phosphorus Magnesium Direct Bilirubin AST ALT Alkaline Phosphatase Lactate Dehydrogenase Troponin T C-Reactive Protein Total Protein Albumin Prealbumin Triglycerides Cholesterol LDL Cholesterol Direct HDL Cholesterol Urine pH Urine WBC (Auto) Urine Creatinine Urine Total Protein Fluid Total Protein Vancomycin Trough Rheumatoid Factor Complement C4 Miscellaneous Test Crossmatch 09/18/16 09/18/16 09/18/16 05:33 08:31 08:31 WBC 18.0 H RBC 3.17 L Hgb 9.0 L Hct 25.7 L MCV MCH MCHC 35 H RDW 20.4 H Plt Count Lymph % (Auto) [place] % (Auto) Lymph # [place] # Baso # Seg Neutrophils % Seg Neuts % (Manual) Lymphocytes % (Manual) Monocytes % (Manual) Eosinophils % (Manual) Basophils % (Manual) Nucleated RBC % Seg Neutrophils # Seg Neutrophils # Man Lymphocytes # (Manual) Monocytes # (Manual) Eosinophils # (Manual) Basophils # (Manual) PT INR Fibrinogen dRVVT Confirm Interp Factor V Activity POC ABG pH POC ABG pCO2 POC ABG pO2 ABG pO2 ABG HCO3 ABG Base Excess ABG Hemoglobin Oxyhemoglobin Sodium Potassium Chloride Carbon Dioxide 15 L BUN 124 H Creatinine 3.8 H Glucose POC Glucose 120 H Lactic Acid Calcium 8.1 L Phosphorus Magnesium Direct Bilirubin AST ALT Alkaline Phosphatase Lactate Dehydrogenase Troponin T C-Reactive Protein Total Protein Albumin Prealbumin Triglycerides Cholesterol LDL Cholesterol Direct HDL Cholesterol Urine pH Urine WBC (Auto) Urine Creatinine Urine Total Protein Fluid Total Protein Vancomycin Trough Rheumatoid Factor Complement C4 Miscellaneous Test Crossmatch 09/18/16 09/18/16 09/18/16 12:03 15:34 17:50 WBC RBC Hgb Hct MCV MCH MCHC RDW Plt Count Lymph % (Auto) [place] % (Auto) Lymph # [place] # Baso # Seg Neutrophils % Seg Neuts % (Manual) Lymphocytes % (Manual) Monocytes % (Manual) Eosinophils % (Manual) Basophils % (Manual) Nucleated RBC % Seg Neutrophils # Seg Neutrophils # Man Lymphocytes # (Manual) Monocytes # (Manual) Eosinophils # (Manual) Basophils # (Manual) PT INR Fibrinogen dRVVT Confirm Interp Factor V Activity POC ABG pH POC ABG pCO2 25.7 L POC ABG pO2 66 L ABG pO2 ABG HCO3 ABG Base Excess ABG Hemoglobin Oxyhemoglobin Sodium Potassium Chloride Carbon Dioxide BUN Creatinine Glucose POC Glucose 156 H 220 H Lactic Acid Calcium Phosphorus Magnesium Direct Bilirubin AST ALT Alkaline Phosphatase Lactate Dehydrogenase Troponin T C-Reactive Protein Total Protein Albumin Prealbumin Triglycerides Cholesterol LDL Cholesterol Direct HDL Cholesterol Urine pH Urine WBC (Auto) Urine Creatinine Urine Total Protein Fluid Total Protein Vancomycin Trough Rheumatoid Factor Complement C4 Miscellaneous Test Crossmatch 09/19/16 09/19/16 09/19/16 06:21 09:50 09:50 WBC 17.1 H RBC 3.49 L Hgb 9.0 L Hct 28.1 L MCV MCH 26 L MCHC RDW 20.8 H Plt Count Lymph % (Auto) 11.5 L [place] % (Auto) 7.5 H Lymph # [place] # 1.3 H Baso # Seg Neutrophils % 79.8 H Seg Neuts % (Manual) Lymphocytes % (Manual) Monocytes % (Manual) Eosinophils % (Manual) Basophils % (Manual) Nucleated RBC % Seg Neutrophils # 13.7 H Seg Neutrophils # Man Lymphocytes # (Manual) Monocytes # (Manual) Eosinophils # (Manual) Basophils # (Manual) PT INR Fibrinogen dRVVT Confirm Interp Factor V Activity POC ABG pH POC ABG pCO2 POC ABG pO2 ABG pO2 ABG HCO3 ABG Base Excess ABG Hemoglobin Oxyhemoglobin Sodium Potassium Chloride 108.6 H Carbon Dioxide 15 L BUN 125 H Creatinine 4.1 H Glucose 124 H POC Glucose 119 H Lactic Acid Calcium Phosphorus Magnesium Direct Bilirubin AST ALT Alkaline Phosphatase Lactate Dehydrogenase Troponin T C-Reactive Protein Total Protein Albumin Prealbumin Triglycerides Cholesterol LDL Cholesterol Direct HDL Cholesterol Urine pH Urine WBC (Auto) Urine Creatinine Urine Total Protein Fluid Total Protein Vancomycin Trough Rheumatoid Factor Complement C4 Miscellaneous Test Crossmatch 09/19/16 09/19/16 09/19/16 11:25 17:53 23:36 WBC RBC Hgb Hct MCV MCH MCHC RDW Plt Count Lymph % (Auto) [place] % (Auto) Lymph # [place] # Baso # Seg Neutrophils % Seg Neuts % (Manual) Lymphocytes % (Manual) Monocytes % (Manual) Eosinophils % (Manual) Basophils % (Manual) Nucleated RBC % Seg Neutrophils # Seg Neutrophils # Man Lymphocytes # (Manual) Monocytes # (Manual) Eosinophils # (Manual) Basophils # (Manual) PT INR Fibrinogen dRVVT Confirm Interp Factor V Activity POC ABG pH POC ABG pCO2 POC ABG pO2 ABG pO2 ABG HCO3 ABG Base Excess ABG Hemoglobin Oxyhemoglobin Sodium Potassium Chloride Carbon Dioxide BUN Creatinine Glucose POC Glucose 160 H 245 H 121 H Lactic Acid Calcium Phosphorus Magnesium Direct Bilirubin AST ALT Alkaline Phosphatase Lactate Dehydrogenase Troponin T C-Reactive Protein Total Protein Albumin Prealbumin Triglycerides Cholesterol LDL Cholesterol Direct HDL Cholesterol Urine pH Urine WBC (Auto) Urine Creatinine Urine Total Protein Fluid Total Protein Vancomycin Trough Rheumatoid Factor Complement C4 Miscellaneous Test Crossmatch 09/20/16 09/20/16 09/20/16 04:10 04:10 04:10 WBC 17.0 H RBC 3.21 L Hgb 8.2 L Hct 25.5 L MCV MCH 26 L MCHC RDW 20.9 H Plt Count Lymph % (Auto) [place] % (Auto) Lymph # [place] # Baso # Seg Neutrophils % Seg Neuts % (Manual) Lymphocytes % (Manual) Monocytes % (Manual) Eosinophils % (Manual) Basophils % (Manual) Nucleated RBC % Seg Neutrophils # Seg Neutrophils # Man Lymphocytes # (Manual) Monocytes # (Manual) Eosinophils # (Manual) Basophils # (Manual) PT INR Fibrinogen dRVVT Confirm Interp Factor V Activity POC ABG pH POC ABG pCO2 POC ABG pO2 ABG pO2 ABG HCO3 ABG Base Excess ABG Hemoglobin Oxyhemoglobin Sodium Potassium Chloride 111.0 H Carbon Dioxide 16 L BUN 129 H Creatinine 3.7 H Glucose 115 H POC Glucose Lactic Acid Calcium 8.2 L Phosphorus Magnesium Direct Bilirubin AST ALT Alkaline Phosphatase Lactate Dehydrogenase Troponin T C-Reactive Protein Total Protein Albumin Prealbumin Triglycerides 243 H Cholesterol LDL Cholesterol Direct HDL Cholesterol Urine pH Urine WBC (Auto) Urine Creatinine Urine Total Protein Fluid Total Protein Vancomycin Trough Rheumatoid Factor Complement C4 Miscellaneous Test Crossmatch 09/20/16 09/20/16 09/20/16 05:40 11:52 16:50 WBC RBC Hgb Hct MCV MCH MCHC RDW Plt Count Lymph % (Auto) [place] % (Auto) Lymph # [place] # Baso # Seg Neutrophils % Seg Neuts % (Manual) Lymphocytes % (Manual) Monocytes % (Manual) Eosinophils % (Manual) Basophils % (Manual) Nucleated RBC % Seg Neutrophils # Seg Neutrophils # Man Lymphocytes # (Manual) Monocytes # (Manual) Eosinophils # (Manual) Basophils # (Manual) PT INR Fibrinogen dRVVT Confirm Interp Factor V Activity POC ABG pH POC ABG pCO2 POC ABG pO2 ABG pO2 ABG HCO3 ABG Base Excess ABG Hemoglobin Oxyhemoglobin Sodium Potassium Chloride Carbon Dioxide BUN Creatinine Glucose POC Glucose 131 H 183 H 236 H Lactic Acid Calcium Phosphorus Magnesium Direct Bilirubin AST ALT Alkaline Phosphatase Lactate Dehydrogenase Troponin T C-Reactive Protein Total Protein Albumin Prealbumin Triglycerides Cholesterol LDL Cholesterol Direct HDL Cholesterol Urine pH Urine WBC (Auto) Urine Creatinine Urine Total Protein Fluid Total Protein Vancomycin Trough Rheumatoid Factor Complement C4 Miscellaneous Test Crossmatch 09/20/16 09/21/16 09/21/16 23:51 03:30 04:44 WBC RBC Hgb Hct MCV MCH MCHC RDW Plt Count Lymph % (Auto) [place] % (Auto) Lymph # [place] # Baso # Seg Neutrophils % Seg Neuts % (Manual) Lymphocytes % (Manual) Monocytes % (Manual) Eosinophils % (Manual) Basophils % (Manual) Nucleated RBC % Seg Neutrophils # Seg Neutrophils # Man Lymphocytes # (Manual) Monocytes # (Manual) Eosinophils # (Manual) Basophils # (Manual) PT INR Fibrinogen dRVVT Confirm Interp Factor V Activity POC ABG pH POC ABG pCO2 POC ABG pO2 ABG pO2 ABG HCO3 ABG Base Excess ABG Hemoglobin Oxyhemoglobin Sodium Potassium Chloride Carbon Dioxide BUN Creatinine Glucose POC Glucose 114 H 141 H Lactic Acid Calcium Phosphorus Magnesium 2.70 H Direct Bilirubin AST ALT Alkaline Phosphatase Lactate Dehydrogenase Troponin T C-Reactive Protein Total Protein Albumin Prealbumin Triglycerides Cholesterol LDL Cholesterol Direct HDL Cholesterol Urine pH Urine WBC (Auto) Urine Creatinine Urine Total Protein Fluid Total Protein Vancomycin Trough Rheumatoid Factor Complement C4 Miscellaneous Test Crossmatch 09/21/16 09/21/16 09/21/16 07:45 07:45 10:01 WBC 13.8 H RBC 2.94 L Hgb 7.5 L Hct 23.5 L MCV MCH 26 L MCHC RDW 21.2 H Plt Count Lymph % (Auto) 6.9 L [place] % (Auto) 9.4 H Lymph # 0.9 L [place] # 1.3 H Baso # Seg Neutrophils % 83.2 H Seg Neuts % (Manual) Lymphocytes % (Manual) Monocytes % (Manual) Eosinophils % (Manual) Basophils % (Manual) Nucleated RBC % Seg Neutrophils # 11.5 H Seg Neutrophils # Man Lymphocytes # (Manual) Monocytes # (Manual) Eosinophils # (Manual) Basophils # (Manual) PT INR Fibrinogen dRVVT Confirm Interp Factor V Activity POC ABG pH 7.308 L POC ABG pCO2 31.9 L POC ABG pO2 148 H ABG pO2 ABG HCO3 ABG Base Excess ABG Hemoglobin Oxyhemoglobin Sodium 147 H Potassium Chloride 114.2 H Carbon Dioxide 15 L BUN 120 H Creatinine 3.9 H Glucose 156 H POC Glucose Lactic Acid Calcium 8.2 L Phosphorus Magnesium Direct Bilirubin AST ALT Alkaline Phosphatase Lactate Dehydrogenase Troponin T C-Reactive Protein Total Protein Albumin Prealbumin Triglycerides Cholesterol LDL Cholesterol Direct HDL Cholesterol Urine pH Urine WBC (Auto) Urine Creatinine Urine Total Protein Fluid Total Protein Vancomycin Trough Rheumatoid Factor Complement C4 Miscellaneous Test Crossmatch 09/21/16 09/21/16 09/21/16 12:00 12:03 13:00 WBC RBC Hgb Hct MCV MCH MCHC RDW Plt Count Lymph % (Auto) [place] % (Auto) Lymph # [place] # Baso # Seg Neutrophils % Seg Neuts % (Manual) Lymphocytes % (Manual) Monocytes % (Manual) Eosinophils % (Manual) Basophils % (Manual) Nucleated RBC % Seg Neutrophils # Seg Neutrophils # Man Lymphocytes # (Manual) Monocytes # (Manual) Eosinophils # (Manual) Basophils # (Manual) PT INR Fibrinogen dRVVT Confirm Interp Factor V Activity POC ABG pH POC ABG pCO2 POC ABG pO2 ABG pO2 ABG HCO3 ABG Base Excess ABG Hemoglobin Oxyhemoglobin Sodium Potassium Chloride Carbon Dioxide BUN Creatinine Glucose POC Glucose 163 H Lactic Acid Calcium Phosphorus Magnesium Direct Bilirubin AST ALT Alkaline Phosphatase Lactate Dehydrogenase Troponin T C-Reactive Protein Total Protein Albumin Prealbumin Triglycerides Cholesterol LDL Cholesterol Direct HDL Cholesterol Urine pH Urine WBC (Auto) Urine Creatinine 54.8 H Urine Total Protein Fluid Total Protein Vancomycin Trough 2.3 L Rheumatoid Factor Complement C4 Miscellaneous Test Crossmatch 09/21/16 09/21/16 09/22/16 16:51 23:17 06:27 WBC RBC Hgb Hct MCV MCH MCHC RDW Plt Count Lymph % (Auto) [place] % (Auto) Lymph # [place] # Baso # Seg Neutrophils % Seg Neuts % (Manual) Lymphocytes % (Manual) Monocytes % (Manual) Eosinophils % (Manual) Basophils % (Manual) Nucleated RBC % Seg Neutrophils # Seg Neutrophils # Man Lymphocytes # (Manual) Monocytes # (Manual) Eosinophils # (Manual) Basophils # (Manual) PT INR Fibrinogen dRVVT Confirm Interp Factor V Activity POC ABG pH POC ABG pCO2 POC ABG pO2 ABG pO2 ABG HCO3 ABG Base Excess ABG Hemoglobin Oxyhemoglobin Sodium Potassium Chloride Carbon Dioxide BUN Creatinine Glucose POC Glucose 206 H 114 H 115 H Lactic Acid Calcium Phosphorus Magnesium Direct Bilirubin AST ALT Alkaline Phosphatase Lactate Dehydrogenase Troponin T C-Reactive Protein Total Protein Albumin Prealbumin Triglycerides Cholesterol LDL Cholesterol Direct HDL Cholesterol Urine pH Urine WBC (Auto) Urine Creatinine Urine Total Protein Fluid Total Protein Vancomycin Trough Rheumatoid Factor Complement C4 Miscellaneous Test Crossmatch 09/22/16 09/22/16 09/22/16 07:50 07:50 12:00 WBC 17.8 H RBC 3.04 L Hgb 8.0 L Hct 24.7 L MCV MCH 26 L MCHC RDW 21.6 H Plt Count Lymph % (Auto) [place] % (Auto) Lymph # [place] # Baso # Seg Neutrophils % Seg Neuts % (Manual) Lymphocytes % (Manual) Monocytes % (Manual) Eosinophils % (Manual) Basophils % (Manual) Nucleated RBC % Seg Neutrophils # Seg Neutrophils # Man Lymphocytes # (Manual) Monocytes # (Manual) Eosinophils # (Manual) Basophils # (Manual) PT INR Fibrinogen dRVVT Confirm Interp Factor V Activity POC ABG pH POC ABG pCO2 POC ABG pO2 ABG pO2 ABG HCO3 ABG Base Excess ABG Hemoglobin Oxyhemoglobin Sodium 150 H Potassium Chloride 118.2 H Carbon Dioxide 14 L BUN 111 H Creatinine 3.7 H Glucose 157 H POC Glucose 183 H Lactic Acid Calcium Phosphorus Magnesium Direct Bilirubin AST ALT Alkaline Phosphatase Lactate Dehydrogenase Troponin T C-Reactive Protein Total Protein Albumin Prealbumin Triglycerides Cholesterol LDL Cholesterol Direct HDL Cholesterol Urine pH Urine WBC (Auto) Urine Creatinine Urine Total Protein Fluid Total Protein Vancomycin Trough Rheumatoid Factor Complement C4 Miscellaneous Test Crossmatch 09/22/16 09/22/16 09/23/16 17:29 23:10 05:00 WBC 19.2 H RBC 3.13 L Hgb 8.0 L Hct 25.2 L MCV MCH 26 L MCHC RDW 22.1 H Plt Count Lymph % (Auto) [place] % (Auto) Lymph # [place] # Baso # Seg Neutrophils % Seg Neuts % (Manual) 92.0 H Lymphocytes % (Manual) 3.0 L Monocytes % (Manual) Eosinophils % (Manual) Basophils % (Manual) Nucleated RBC % Seg Neutrophils # Seg Neutrophils # Man 17.7 H Lymphocytes # (Manual) 0.6 L Monocytes # (Manual) Eosinophils # (Manual) Basophils # (Manual) PT INR Fibrinogen dRVVT Confirm Interp Factor V Activity POC ABG pH POC ABG pCO2 POC ABG pO2 ABG pO2 ABG HCO3 ABG Base Excess ABG Hemoglobin Oxyhemoglobin Sodium Potassium Chloride Carbon Dioxide BUN Creatinine Glucose POC Glucose 197 H 169 H Lactic Acid Calcium Phosphorus Magnesium Direct Bilirubin AST ALT Alkaline Phosphatase Lactate Dehydrogenase Troponin T C-Reactive Protein Total Protein Albumin Prealbumin Triglycerides Cholesterol LDL Cholesterol Direct HDL Cholesterol Urine pH Urine WBC (Auto) Urine Creatinine Urine Total Protein Fluid Total Protein Vancomycin Trough Rheumatoid Factor Complement C4 Miscellaneous Test Crossmatch 09/23/16 09/23/16 09/23/16 05:00 05:00 05:10 WBC RBC Hgb Hct MCV MCH MCHC RDW Plt Count Lymph % (Auto) [place] % (Auto) Lymph # [place] # Baso # Seg Neutrophils % Seg Neuts % (Manual) Lymphocytes % (Manual) Monocytes % (Manual) Eosinophils % (Manual) Basophils % (Manual) Nucleated RBC % Seg Neutrophils # Seg Neutrophils # Man Lymphocytes # (Manual) Monocytes # (Manual) Eosinophils # (Manual) Basophils # (Manual) PT INR Fibrinogen dRVVT Confirm Interp Factor V Activity POC ABG pH POC ABG pCO2 POC ABG pO2 ABG pO2 ABG HCO3 ABG Base Excess ABG Hemoglobin Oxyhemoglobin Sodium 147 H Potassium 3.2 L Chloride 115.7 H Carbon Dioxide 13 L BUN 111 H Creatinine 3.8 H Glucose 194 H POC Glucose 188 H Lactic Acid Calcium 7.3 L D Phosphorus Magnesium Direct Bilirubin AST ALT Alkaline Phosphatase Lactate Dehydrogenase Troponin T C-Reactive Protein 3.20 H Total Protein Albumin Prealbumin Triglycerides Cholesterol LDL Cholesterol Direct HDL Cholesterol Urine pH Urine WBC (Auto) Urine Creatinine Urine Total Protein Fluid Total Protein Vancomycin Trough Rheumatoid Factor Complement C4 Miscellaneous Test Crossmatch 09/23/16 09/23/16 09/23/16 11:37 12:29 18:01 WBC RBC Hgb Hct MCV MCH MCHC RDW Plt Count Lymph % (Auto) [place] % (Auto) Lymph # [place] # Baso # Seg Neutrophils % Seg Neuts % (Manual) Lymphocytes % (Manual) Monocytes % (Manual) Eosinophils % (Manual) Basophils % (Manual) Nucleated RBC % Seg Neutrophils # Seg Neutrophils # Man Lymphocytes # (Manual) Monocytes # (Manual) Eosinophils # (Manual) Basophils # (Manual) PT INR Fibrinogen dRVVT Confirm Interp Factor V Activity POC ABG pH POC ABG pCO2 18.9 L POC ABG pO2 143 H ABG pO2 ABG HCO3 ABG Base Excess ABG Hemoglobin Oxyhemoglobin Sodium Potassium Chloride Carbon Dioxide BUN Creatinine Glucose POC Glucose 153 H 108 H Lactic Acid Calcium Phosphorus Magnesium Direct Bilirubin AST ALT Alkaline Phosphatase Lactate Dehydrogenase Troponin T C-Reactive Protein Total Protein Albumin Prealbumin Triglycerides Cholesterol LDL Cholesterol Direct HDL Cholesterol Urine pH Urine WBC (Auto) Urine Creatinine Urine Total Protein Fluid Total Protein Vancomycin Trough Rheumatoid Factor Complement C4 Miscellaneous Test Crossmatch 09/23/16 09/23/16 09/24/16 21:19 23:43 05:16 WBC RBC Hgb Hct MCV MCH MCHC RDW Plt Count Lymph % (Auto) [place] % (Auto) Lymph # [place] # Baso # Seg Neutrophils % Seg Neuts % (Manual) Lymphocytes % (Manual) Monocytes % (Manual) Eosinophils % (Manual) Basophils % (Manual) Nucleated RBC % Seg Neutrophils # Seg Neutrophils # Man Lymphocytes # (Manual) Monocytes # (Manual) Eosinophils # (Manual) Basophils # (Manual) PT INR Fibrinogen dRVVT Confirm Interp Factor V Activity POC ABG pH POC ABG pCO2 17.3 L POC ABG pO2 112 H ABG pO2 ABG HCO3 ABG Base Excess ABG Hemoglobin Oxyhemoglobin Sodium Potassium Chloride Carbon Dioxide BUN Creatinine Glucose POC Glucose 143 H 164 H Lactic Acid Calcium Phosphorus Magnesium Direct Bilirubin AST ALT Alkaline Phosphatase Lactate Dehydrogenase Troponin T C-Reactive Protein Total Protein Albumin Prealbumin Triglycerides Cholesterol LDL Cholesterol Direct HDL Cholesterol Urine pH Urine WBC (Auto) Urine Creatinine Urine Total Protein Fluid Total Protein Vancomycin Trough Rheumatoid Factor Complement C4 Miscellaneous Test Crossmatch 09/24/16 09/24/16 09/24/16 05:21 11:58 17:06 WBC RBC Hgb Hct MCV MCH MCHC RDW Plt Count Lymph % (Auto) [place] % (Auto) Lymph # [place] # Baso # Seg Neutrophils % Seg Neuts % (Manual) Lymphocytes % (Manual) Monocytes % (Manual) Eosinophils % (Manual) Basophils % (Manual) Nucleated RBC % Seg Neutrophils # Seg Neutrophils # Man Lymphocytes # (Manual) Monocytes # (Manual) Eosinophils # (Manual) Basophils # (Manual) PT INR Fibrinogen dRVVT Confirm Interp Factor V Activity POC ABG pH POC ABG pCO2 POC ABG pO2 ABG pO2 ABG HCO3 ABG Base Excess ABG Hemoglobin Oxyhemoglobin Sodium Potassium Chloride Carbon Dioxide 10 L BUN 103 H Creatinine 4.3 H Glucose 163 H POC Glucose 173 H 167 H Lactic Acid Calcium 6.5 L Phosphorus Magnesium Direct Bilirubin AST ALT Alkaline Phosphatase Lactate Dehydrogenase Troponin T C-Reactive Protein Total Protein Albumin Prealbumin Triglycerides Cholesterol LDL Cholesterol Direct HDL Cholesterol Urine pH Urine WBC (Auto) Urine Creatinine Urine Total Protein Fluid Total Protein Vancomycin Trough Rheumatoid Factor Complement C4 Miscellaneous Test Crossmatch 09/24/16 09/24/16 09/24/16 20:15 21:02 23:48 WBC RBC Hgb Hct MCV MCH MCHC RDW Plt Count Lymph % (Auto) [place] % (Auto) Lymph # [place] # Baso # Seg Neutrophils % Seg Neuts % (Manual) Lymphocytes % (Manual) Monocytes % (Manual) Eosinophils % (Manual) Basophils % (Manual) Nucleated RBC % Seg Neutrophils # Seg Neutrophils # Man Lymphocytes # (Manual) Monocytes # (Manual) Eosinophils # (Manual) Basophils # (Manual) PT INR Fibrinogen dRVVT Confirm Interp Factor V Activity POC ABG pH 7.288 L POC ABG pCO2 30.2 L 21.5 L POC ABG pO2 32 L 39 L ABG pO2 ABG HCO3 ABG Base Excess ABG Hemoglobin Oxyhemoglobin Sodium Potassium Chloride Carbon Dioxide BUN Creatinine Glucose POC Glucose 109 H Lactic Acid Calcium Phosphorus Magnesium Direct Bilirubin AST ALT Alkaline Phosphatase Lactate Dehydrogenase Troponin T C-Reactive Protein Total Protein Albumin Prealbumin Triglycerides Cholesterol LDL Cholesterol Direct HDL Cholesterol Urine pH Urine WBC (Auto) Urine Creatinine Urine Total Protein Fluid Total Protein Vancomycin Trough Rheumatoid Factor Complement C4 Miscellaneous Test Crossmatch 09/25/16 09/25/16 09/25/16 04:20 04:20 04:20 WBC RBC 2.58 L Hgb 7.0 L Hct 21.0 L MCV MCH 27 L MCHC RDW 23.8 H Plt Count Lymph % (Auto) [place] % (Auto) Lymph # [place] # Baso # Seg Neutrophils % Seg Neuts % (Manual) Lymphocytes % (Manual) 12.0 L Monocytes % (Manual) Eosinophils % (Manual) 7.0 H Basophils % (Manual) 2.0 H Nucleated RBC % Seg Neutrophils # Seg Neutrophils # Man Lymphocytes # (Manual) 0.9 L Monocytes # (Manual) Eosinophils # (Manual) 0.5 H Basophils # (Manual) PT INR Fibrinogen dRVVT Confirm Interp Factor V Activity POC ABG pH POC ABG pCO2 POC ABG pO2 ABG pO2 ABG HCO3 ABG Base Excess ABG Hemoglobin Oxyhemoglobin Sodium Potassium Chloride Carbon Dioxide 15 L BUN 72 H Creatinine 3.8 H Glucose POC Glucose Lactic Acid Calcium 6.0 L Phosphorus 4.60 H Magnesium 1.60 L Direct Bilirubin AST ALT Alkaline Phosphatase Lactate Dehydrogenase Troponin T C-Reactive Protein Total Protein Albumin Prealbumin Triglycerides Cholesterol LDL Cholesterol Direct HDL Cholesterol Urine pH Urine WBC (Auto) Urine Creatinine Urine Total Protein Fluid Total Protein Vancomycin Trough Rheumatoid Factor Complement C4 Miscellaneous Test Crossmatch 09/25/16 09/25/16 09/25/16 04:57 08:02 10:30 WBC RBC Hgb Hct MCV MCH MCHC RDW Plt Count Lymph % (Auto) [place] % (Auto) Lymph # [place] # Baso # Seg Neutrophils % Seg Neuts % (Manual) Lymphocytes % (Manual) Monocytes % (Manual) Eosinophils % (Manual) Basophils % (Manual) Nucleated RBC % Seg Neutrophils # Seg Neutrophils # Man Lymphocytes # (Manual) Monocytes # (Manual) Eosinophils # (Manual) Basophils # (Manual) PT INR Fibrinogen dRVVT Confirm Interp Factor V Activity POC ABG pH POC ABG pCO2 24.7 L POC ABG pO2 152 H ABG pO2 ABG HCO3 ABG Base Excess ABG Hemoglobin Oxyhemoglobin Sodium Potassium Chloride Carbon Dioxide BUN Creatinine Glucose POC Glucose 113 H Lactic Acid Calcium Phosphorus Magnesium Direct Bilirubin AST ALT Alkaline Phosphatase Lactate Dehydrogenase Troponin T C-Reactive Protein Total Protein Albumin Prealbumin Triglycerides Cholesterol LDL Cholesterol Direct HDL Cholesterol Urine pH Urine WBC (Auto) Urine Creatinine Urine Total Protein Fluid Total Protein Vancomycin Trough Rheumatoid Factor Complement C4 Miscellaneous Test Crossmatch See Detail 09/25/16 09/25/16 09/25/16 12:05 17:44 23:47 WBC RBC Hgb Hct MCV MCH MCHC RDW Plt Count Lymph % (Auto) [place] % (Auto) Lymph # [place] # Baso # Seg Neutrophils % Seg Neuts % (Manual) Lymphocytes % (Manual) Monocytes % (Manual) Eosinophils % (Manual) Basophils % (Manual) Nucleated RBC % Seg Neutrophils # Seg Neutrophils # Man Lymphocytes # (Manual) Monocytes # (Manual) Eosinophils # (Manual) Basophils # (Manual) PT INR Fibrinogen dRVVT Confirm Interp Factor V Activity POC ABG pH POC ABG pCO2 POC ABG pO2 ABG pO2 ABG HCO3 ABG Base Excess ABG Hemoglobin Oxyhemoglobin Sodium Potassium Chloride Carbon Dioxide BUN Creatinine Glucose POC Glucose 117 H 119 H 150 H Lactic Acid Calcium Phosphorus Magnesium Direct Bilirubin AST ALT Alkaline Phosphatase Lactate Dehydrogenase Troponin T C-Reactive Protein Total Protein Albumin Prealbumin Triglycerides Cholesterol LDL Cholesterol Direct HDL Cholesterol Urine pH Urine WBC (Auto) Urine Creatinine Urine Total Protein Fluid Total Protein Vancomycin Trough Rheumatoid Factor Complement C4 Miscellaneous Test Crossmatch 09/26/16 09/26/16 09/26/16 04:25 04:25 04:25 WBC RBC 2.65 L Hgb 7.4 L Hct 21.6 L MCV MCH MCHC RDW 22.5 H Plt Count Lymph % (Auto) [place] % (Auto) Lymph # [place] # Baso # Seg Neutrophils % Seg Neuts % (Manual) Lymphocytes % (Manual) 6.0 L Monocytes % (Manual) Eosinophils % (Manual) 11.0 H Basophils % (Manual) Nucleated RBC % Seg Neutrophils # Seg Neutrophils # Man Lymphocytes # (Manual) 0.4 L Monocytes # (Manual) Eosinophils # (Manual) 0.6 H Basophils # (Manual) PT INR Fibrinogen dRVVT Confirm Interp Factor V Activity POC ABG pH POC ABG pCO2 POC ABG pO2 ABG pO2 ABG HCO3 ABG Base Excess ABG Hemoglobin Oxyhemoglobin Sodium Potassium Chloride 97.0 L Carbon Dioxide 19 L BUN 43 H Creatinine 2.6 H Glucose 130 H POC Glucose Lactic Acid 4.40 H* Calcium 6.7 L Phosphorus Magnesium Direct Bilirubin AST ALT Alkaline Phosphatase Lactate Dehydrogenase Troponin T C-Reactive Protein Total Protein Albumin Prealbumin Triglycerides Cholesterol LDL Cholesterol Direct HDL Cholesterol Urine pH Urine WBC (Auto) Urine Creatinine Urine Total Protein Fluid Total Protein Vancomycin Trough Rheumatoid Factor Complement C4 Miscellaneous Test Crossmatch 09/26/16 09/26/16 09/26/16 05:20 11:44 12:12 WBC RBC Hgb Hct MCV MCH MCHC RDW Plt Count Lymph % (Auto) [place] % (Auto) Lymph # [place] # Baso # Seg Neutrophils % Seg Neuts % (Manual) Lymphocytes % (Manual) Monocytes % (Manual) Eosinophils % (Manual) Basophils % (Manual) Nucleated RBC % Seg Neutrophils # Seg Neutrophils # Man Lymphocytes # (Manual) Monocytes # (Manual) Eosinophils # (Manual) Basophils # (Manual) PT INR Fibrinogen dRVVT Confirm Interp Factor V Activity POC ABG pH POC ABG pCO2 27.0 L POC ABG pO2 69 L ABG pO2 ABG HCO3 ABG Base Excess ABG Hemoglobin Oxyhemoglobin Sodium Potassium Chloride Carbon Dioxide BUN Creatinine Glucose POC Glucose 121 H 128 H Lactic Acid Calcium Phosphorus Magnesium Direct Bilirubin AST ALT Alkaline Phosphatase Lactate Dehydrogenase Troponin T C-Reactive Protein Total Protein Albumin Prealbumin Triglycerides Cholesterol LDL Cholesterol Direct HDL Cholesterol Urine pH Urine WBC (Auto) Urine Creatinine Urine Total Protein Fluid Total Protein Vancomycin Trough Rheumatoid Factor Complement C4 Miscellaneous Test Crossmatch 09/26/16 09/26/16 09/27/16 18:31 23:40 08:20 WBC RBC Hgb Hct MCV MCH MCHC RDW Plt Count Lymph % (Auto) [place] % (Auto) Lymph # [place] # Baso # Seg Neutrophils % Seg Neuts % (Manual) Lymphocytes % (Manual) Monocytes % (Manual) Eosinophils % (Manual) Basophils % (Manual) Nucleated RBC % Seg Neutrophils # Seg Neutrophils # Man Lymphocytes # (Manual) Monocytes # (Manual) Eosinophils # (Manual) Basophils # (Manual) PT INR Fibrinogen dRVVT Confirm Interp Factor V Activity POC ABG pH POC ABG pCO2 POC ABG pO2 ABG pO2 ABG HCO3 ABG Base Excess ABG Hemoglobin Oxyhemoglobin Sodium Potassium Chloride Carbon Dioxide BUN Creatinine Glucose POC Glucose 120 H 133 H Lactic Acid 4.10 H* Calcium Phosphorus Magnesium Direct Bilirubin AST ALT Alkaline Phosphatase Lactate Dehydrogenase Troponin T C-Reactive Protein Total Protein Albumin Prealbumin Triglycerides Cholesterol LDL Cholesterol Direct HDL Cholesterol Urine pH Urine WBC (Auto) Urine Creatinine Urine Total Protein Fluid Total Protein Vancomycin Trough Rheumatoid Factor Complement C4 Miscellaneous Test Crossmatch 09/27/16 09/27/16 09/27/16 11:23 15:00 18:15 WBC RBC Hgb Hct MCV MCH MCHC RDW Plt Count Lymph % (Auto) [place] % (Auto) Lymph # [place] # Baso # Seg Neutrophils % Seg Neuts % (Manual) Lymphocytes % (Manual) Monocytes % (Manual) Eosinophils % (Manual) Basophils % (Manual) Nucleated RBC % Seg Neutrophils # Seg Neutrophils # Man Lymphocytes # (Manual) Monocytes # (Manual) Eosinophils # (Manual) Basophils # (Manual) PT INR Fibrinogen dRVVT Confirm Interp Factor V Activity POC ABG pH 7.459 H POC ABG pCO2 27.1 L POC ABG pO2 140 H ABG pO2 ABG HCO3 ABG Base Excess ABG Hemoglobin Oxyhemoglobin Sodium Potassium Chloride Carbon Dioxide BUN Creatinine Glucose POC Glucose 114 H 127 H Lactic Acid Calcium Phosphorus Magnesium Direct Bilirubin AST ALT Alkaline Phosphatase Lactate Dehydrogenase Troponin T C-Reactive Protein Total Protein Albumin Prealbumin Triglycerides Cholesterol LDL Cholesterol Direct HDL Cholesterol Urine pH Urine WBC (Auto) Urine Creatinine Urine Total Protein Fluid Total Protein Vancomycin Trough Rheumatoid Factor Complement C4 Miscellaneous Test Crossmatch 09/27/16 09/27/16 09/28/16 Unknown Unknown 03:45 WBC RBC 2.49 L Hgb 6.8 L Hct 20.7 L MCV MCH 27 L MCHC RDW 22.1 H Plt Count Lymph % (Auto) [place] % (Auto) Lymph # [place] # Baso # Seg Neutrophils % Seg Neuts % (Manual) 32.0 L Lymphocytes % (Manual) 12.0 L Monocytes % (Manual) 11.0 H Eosinophils % (Manual) 10.0 H Basophils % (Manual) Nucleated RBC % Seg Neutrophils # Seg Neutrophils # Man Lymphocytes # (Manual) 1.0 L Monocytes # (Manual) 0.9 H Eosinophils # (Manual) 0.8 H Basophils # (Manual) PT INR Fibrinogen dRVVT Confirm Interp Factor V Activity POC ABG pH POC ABG pCO2 POC ABG pO2 ABG pO2 ABG HCO3 ABG Base Excess ABG Hemoglobin Oxyhemoglobin Sodium 135 L 135 L Potassium 3.5 L Chloride 93.6 L 94.4 L Carbon Dioxide 17 L 21 L BUN 45 H 28 H Creatinine 3.3 H 2.5 H Glucose 106 H POC Glucose Lactic Acid Calcium 7.3 L 7.1 L Phosphorus Magnesium Direct Bilirubin AST ALT Alkaline Phosphatase Lactate Dehydrogenase Troponin T C-Reactive Protein Total Protein Albumin Prealbumin Triglycerides Cholesterol LDL Cholesterol Direct HDL Cholesterol Urine pH Urine WBC (Auto) Urine Creatinine Urine Total Protein Fluid Total Protein Vancomycin Trough Rheumatoid Factor Complement C4 Miscellaneous Test Crossmatch 09/28/16 09/28/16 09/28/16 03:45 07:25 11:58 WBC 13.3 H RBC 3.01 L Hgb 8.4 L Hct 25.0 L MCV MCH MCHC RDW 20.5 H Plt Count 128 L Lymph % (Auto) [place] % (Auto) Lymph # [place] # Baso # Seg Neutrophils % Seg Neuts % (Manual) Lymphocytes % (Manual) 7.0 L Monocytes % (Manual) Eosinophils % (Manual) 6.0 H Basophils % (Manual) Nucleated RBC % Seg Neutrophils # Seg Neutrophils # Man Lymphocytes # (Manual) 0.9 L Monocytes # (Manual) Eosinophils # (Manual) 0.8 H Basophils # (Manual) PT INR Fibrinogen dRVVT Confirm Interp Factor V Activity POC ABG pH POC ABG pCO2 POC ABG pO2 ABG pO2 ABG HCO3 ABG Base Excess ABG Hemoglobin Oxyhemoglobin Sodium Potassium Chloride Carbon Dioxide BUN Creatinine Glucose POC Glucose 121 H Lactic Acid 4.50 H* Calcium Phosphorus Magnesium Direct Bilirubin AST ALT Alkaline Phosphatase Lactate Dehydrogenase Troponin T C-Reactive Protein Total Protein Albumin Prealbumin Triglycerides Cholesterol LDL Cholesterol Direct HDL Cholesterol Urine pH Urine WBC (Auto) Urine Creatinine Urine Total Protein Fluid Total Protein Vancomycin Trough Rheumatoid Factor Complement C4 Miscellaneous Test Crossmatch 09/29/16 09/29/16 09/29/16 06:45 06:45 06:45 WBC 14.9 H RBC 2.74 L Hgb 7.6 L Hct 23.2 L MCV MCH MCHC RDW 20.5 H Plt Count 81 L Lymph % (Auto) [place] % (Auto) Lymph # [place] # Baso # Seg Neutrophils % Seg Neuts % (Manual) 81.0 H Lymphocytes % (Manual) 4.0 L Monocytes % (Manual) Eosinophils % (Manual) Basophils % (Manual) Nucleated RBC % Seg Neutrophils # Seg Neutrophils # Man 12.1 H Lymphocytes # (Manual) 0.6 L Monocytes # (Manual) Eosinophils # (Manual) Basophils # (Manual) PT INR Fibrinogen dRVVT Confirm Interp Factor V Activity POC ABG pH POC ABG pCO2 POC ABG pO2 ABG pO2 ABG HCO3 ABG Base Excess ABG Hemoglobin Oxyhemoglobin Sodium 133 L Potassium 3.4 L Chloride 92.5 L Carbon Dioxide 21 L BUN 33 H Creatinine 3.0 H Glucose POC Glucose Lactic Acid Calcium 6.6 L Phosphorus Magnesium 1.40 L Direct Bilirubin 0.9 H AST ALT Alkaline Phosphatase Lactate Dehydrogenase Troponin T C-Reactive Protein Total Protein 4.3 L Albumin 1.3 L Prealbumin Triglycerides Cholesterol LDL Cholesterol Direct HDL Cholesterol Urine pH Urine WBC (Auto) Urine Creatinine Urine Total Protein Fluid Total Protein Vancomycin Trough Rheumatoid Factor Complement C4 Miscellaneous Test Crossmatch 09/29/16 09/29/16 09/30/16 17:52 20:12 00:07 WBC RBC Hgb Hct MCV MCH MCHC RDW Plt Count Lymph % (Auto) [place] % (Auto) Lymph # [place] # Baso # Seg Neutrophils % Seg Neuts % (Manual) Lymphocytes % (Manual) Monocytes % (Manual) Eosinophils % (Manual) Basophils % (Manual) Nucleated RBC % Seg Neutrophils # Seg Neutrophils # Man Lymphocytes # (Manual) Monocytes # (Manual) Eosinophils # (Manual) Basophils # (Manual) PT INR Fibrinogen dRVVT Confirm Interp Factor V Activity POC ABG pH POC ABG pCO2 POC ABG pO2 ABG pO2 ABG HCO3 ABG Base Excess ABG Hemoglobin Oxyhemoglobin Sodium Potassium Chloride Carbon Dioxide BUN Creatinine Glucose POC Glucose 50 L 51 L Lactic Acid Calcium Phosphorus Magnesium Direct Bilirubin AST ALT Alkaline Phosphatase Lactate Dehydrogenase Troponin T 0.204 H* C-Reactive Protein Total Protein Albumin Prealbumin Triglycerides Cholesterol 31 L LDL Cholesterol Direct 4 L HDL Cholesterol 3 L Urine pH Urine WBC (Auto) Urine Creatinine Urine Total Protein Fluid Total Protein Vancomycin Trough Rheumatoid Factor Complement C4 Miscellaneous Test Crossmatch 09/30/16 09/30/16 09/30/16 01:30 05:15 06:10 WBC RBC Hgb Hct MCV MCH MCHC RDW Plt Count Lymph % (Auto) [place] % (Auto) Lymph # [place] # Baso # Seg Neutrophils % Seg Neuts % (Manual) Lymphocytes % (Manual) Monocytes % (Manual) Eosinophils % (Manual) Basophils % (Manual) Nucleated RBC % Seg Neutrophils # Seg Neutrophils # Man Lymphocytes # (Manual) Monocytes # (Manual) Eosinophils # (Manual) Basophils # (Manual) PT INR Fibrinogen dRVVT Confirm Interp Factor V Activity POC ABG pH POC ABG pCO2 POC ABG pO2 ABG pO2 ABG HCO3 ABG Base Excess ABG Hemoglobin Oxyhemoglobin Sodium 133 L Potassium 3.2 L Chloride 93.2 L Carbon Dioxide 19 L BUN 36 H Creatinine 3.2 H Glucose 104 H POC Glucose 167 H 146 H Lactic Acid Calcium 6.4 L Phosphorus Magnesium 1.60 L Direct Bilirubin AST ALT Alkaline Phosphatase Lactate Dehydrogenase Troponin T C-Reactive Protein Total Protein Albumin Prealbumin Triglycerides Cholesterol LDL Cholesterol Direct HDL Cholesterol Urine pH Urine WBC (Auto) Urine Creatinine Urine Total Protein Fluid Total Protein Vancomycin Trough Rheumatoid Factor Complement C4 Miscellaneous Test Crossmatch 09/30/16 09/30/16 09/30/16 11:26 13:39 18:38 WBC RBC Hgb Hct MCV MCH MCHC RDW Plt Count Lymph % (Auto) [place] % (Auto) Lymph # [place] # Baso # Seg Neutrophils % Seg Neuts % (Manual) Lymphocytes % (Manual) Monocytes % (Manual) Eosinophils % (Manual) Basophils % (Manual) Nucleated RBC % Seg Neutrophils # Seg Neutrophils # Man Lymphocytes # (Manual) Monocytes # (Manual) Eosinophils # (Manual) Basophils # (Manual) PT INR Fibrinogen dRVVT Confirm Interp Factor V Activity POC ABG pH 7.479 H POC ABG pCO2 29.8 L POC ABG pO2 117 H ABG pO2 ABG HCO3 ABG Base Excess ABG Hemoglobin Oxyhemoglobin Sodium Potassium Chloride Carbon Dioxide BUN Creatinine Glucose POC Glucose 140 H 122 H Lactic Acid Calcium Phosphorus Magnesium Direct Bilirubin AST ALT Alkaline Phosphatase Lactate Dehydrogenase Troponin T C-Reactive Protein Total Protein Albumin Prealbumin Triglycerides Cholesterol LDL Cholesterol Direct HDL Cholesterol Urine pH Urine WBC (Auto) Urine Creatinine Urine Total Protein Fluid Total Protein Vancomycin Trough Rheumatoid Factor Complement C4 Miscellaneous Test Crossmatch 10/01/16 10/01/16 10/01/16 06:00 06:00 12:37 WBC 12.6 H RBC 2.75 L Hgb 7.3 L Hct 23.3 L MCV MCH 27 L MCHC RDW 20.6 H Plt Count 72 L Lymph % (Auto) [place] % (Auto) Lymph # [place] # Baso # Seg Neutrophils % Seg Neuts % (Manual) 31.0 L Lymphocytes % (Manual) 8.0 L Monocytes % (Manual) Eosinophils % (Manual) Basophils % (Manual) Nucleated RBC % 3.0 H Seg Neutrophils # Seg Neutrophils # Man Lymphocytes # (Manual) 1.0 L Monocytes # (Manual) Eosinophils # (Manual) Basophils # (Manual) PT INR Fibrinogen dRVVT Confirm Interp Factor V Activity POC ABG pH POC ABG pCO2 POC ABG pO2 ABG pO2 ABG HCO3 ABG Base Excess ABG Hemoglobin Oxyhemoglobin Sodium 127 L Potassium Chloride 86.8 L Carbon Dioxide 20 L BUN 42 H Creatinine 3.5 H Glucose POC Glucose 65 L Lactic Acid Calcium 7.0 L Phosphorus Magnesium Direct Bilirubin AST ALT Alkaline Phosphatase Lactate Dehydrogenase Troponin T C-Reactive Protein Total Protein Albumin Prealbumin Triglycerides Cholesterol LDL Cholesterol Direct HDL Cholesterol Urine pH Urine WBC (Auto) Urine Creatinine Urine Total Protein Fluid Total Protein Vancomycin Trough Rheumatoid Factor Complement C4 Miscellaneous Test Crossmatch 10/01/16 10/01/16 10/02/16 17:39 23:32 00:59 WBC RBC Hgb Hct MCV MCH MCHC RDW Plt Count Lymph % (Auto) [place] % (Auto) Lymph # [place] # Baso # Seg Neutrophils % Seg Neuts % (Manual) Lymphocytes % (Manual) Monocytes % (Manual) Eosinophils % (Manual) Basophils % (Manual) Nucleated RBC % Seg Neutrophils # Seg Neutrophils # Man Lymphocytes # (Manual) Monocytes # (Manual) Eosinophils # (Manual) Basophils # (Manual) PT INR Fibrinogen dRVVT Confirm Interp Factor V Activity POC ABG pH POC ABG pCO2 POC ABG pO2 ABG pO2 ABG HCO3 ABG Base Excess ABG Hemoglobin Oxyhemoglobin Sodium Potassium Chloride Carbon Dioxide BUN Creatinine Glucose POC Glucose 107 H 52 L 145 H Lactic Acid Calcium Phosphorus Magnesium Direct Bilirubin AST ALT Alkaline Phosphatase Lactate Dehydrogenase Troponin T C-Reactive Protein Total Protein Albumin Prealbumin Triglycerides Cholesterol LDL Cholesterol Direct HDL Cholesterol Urine pH Urine WBC (Auto) Urine Creatinine Urine Total Protein Fluid Total Protein Vancomycin Trough Rheumatoid Factor Complement C4 Miscellaneous Test Crossmatch 10/02/16 10/02/16 10/02/16 10:30 10:50 10:50 WBC 14.7 H RBC 2.76 L Hgb 7.4 L Hct 23.6 L MCV MCH 27 L MCHC RDW 20.2 H Plt Count 79 L Lymph % (Auto) [place] % (Auto) Lymph # [place] # Baso # Seg Neutrophils % Seg Neuts % (Manual) 86.0 H Lymphocytes % (Manual) 6.0 L Monocytes % (Manual) Eosinophils % (Manual) Basophils % (Manual) Nucleated RBC % Seg Neutrophils # Seg Neutrophils # Man 12.6 H Lymphocytes # (Manual) 0.9 L Monocytes # (Manual) Eosinophils # (Manual) Basophils # (Manual) PT INR Fibrinogen dRVVT Confirm Interp Factor V Activity POC ABG pH 7.486 H POC ABG pCO2 30.1 L POC ABG pO2 108 H ABG pO2 ABG HCO3 ABG Base Excess ABG Hemoglobin Oxyhemoglobin Sodium 131 L Potassium 3.4 L Chloride 89.9 L Carbon Dioxide BUN 26 H Creatinine 2.6 H Glucose POC Glucose Lactic Acid Calcium 7.0 L Phosphorus Magnesium Direct Bilirubin AST ALT Alkaline Phosphatase Lactate Dehydrogenase Troponin T C-Reactive Protein Total Protein Albumin Prealbumin Triglycerides Cholesterol LDL Cholesterol Direct HDL Cholesterol Urine pH Urine WBC (Auto) Urine Creatinine Urine Total Protein Fluid Total Protein Vancomycin Trough Rheumatoid Factor Complement C4 Miscellaneous Test Crossmatch 10/02/16 10/03/16 10/03/16 23:45 00:45 05:10 WBC 12.9 H RBC 2.77 L Hgb 7.6 L Hct 23.7 L MCV MCH 27 L MCHC RDW 19.7 H Plt Count 89 L Lymph % (Auto) [place] % (Auto) Lymph # [place] # Baso # Seg Neutrophils % Seg Neuts % (Manual) Lymphocytes % (Manual) 8.0 L Monocytes % (Manual) Eosinophils % (Manual) Basophils % (Manual) Nucleated RBC % Seg Neutrophils # 11.9 H Seg Neutrophils # Man Lymphocytes # (Manual) 1.0 L Monocytes # (Manual) Eosinophils # (Manual) Basophils # (Manual) PT INR Fibrinogen dRVVT Confirm Interp Factor V Activity POC ABG pH POC ABG pCO2 POC ABG pO2 ABG pO2 ABG HCO3 ABG Base Excess ABG Hemoglobin Oxyhemoglobin Sodium Potassium Chloride Carbon Dioxide BUN Creatinine Glucose POC Glucose 55 L 199 H Lactic Acid Calcium Phosphorus Magnesium Direct Bilirubin AST ALT Alkaline Phosphatase Lactate Dehydrogenase Troponin T C-Reactive Protein Total Protein Albumin Prealbumin Triglycerides Cholesterol LDL Cholesterol Direct HDL Cholesterol Urine pH Urine WBC (Auto) Urine Creatinine Urine Total Protein Fluid Total Protein Vancomycin Trough Rheumatoid Factor Complement C4 Miscellaneous Test Crossmatch 10/03/16 10/03/16 10/03/16 05:10 12:14 13:18 WBC RBC Hgb Hct MCV MCH MCHC RDW Plt Count Lymph % (Auto) [place] % (Auto) Lymph # [place] # Baso # Seg Neutrophils % Seg Neuts % (Manual) Lymphocytes % (Manual) Monocytes % (Manual) Eosinophils % (Manual) Basophils % (Manual) Nucleated RBC % Seg Neutrophils # Seg Neutrophils # Man Lymphocytes # (Manual) Monocytes # (Manual) Eosinophils # (Manual) Basophils # (Manual) PT INR Fibrinogen dRVVT Confirm Interp Factor V Activity POC ABG pH POC ABG pCO2 POC ABG pO2 ABG pO2 ABG HCO3 ABG Base Excess ABG Hemoglobin Oxyhemoglobin Sodium 129 L Potassium 3.3 L Chloride 88.8 L Carbon Dioxide 20 L BUN 29 H Creatinine 2.8 H Glucose POC Glucose 68 L 127 H Lactic Acid Calcium 7.2 L Phosphorus Magnesium Direct Bilirubin AST ALT Alkaline Phosphatase Lactate Dehydrogenase Troponin T C-Reactive Protein Total Protein Albumin Prealbumin Triglycerides Cholesterol LDL Cholesterol Direct HDL Cholesterol Urine pH Urine WBC (Auto) Urine Creatinine Urine Total Protein Fluid Total Protein Vancomycin Trough Rheumatoid Factor Complement C4 Miscellaneous Test Crossmatch 10/03/16 10/03/16 10/03/16 14:42 18:21 19:09 WBC RBC Hgb Hct MCV MCH MCHC RDW Plt Count Lymph % (Auto) [place] % (Auto) Lymph # [place] # Baso # Seg Neutrophils % Seg Neuts % (Manual) Lymphocytes % (Manual) Monocytes % (Manual) Eosinophils % (Manual) Basophils % (Manual) Nucleated RBC % Seg Neutrophils # Seg Neutrophils # Man Lymphocytes # (Manual) Monocytes # (Manual) Eosinophils # (Manual) Basophils # (Manual) PT INR Fibrinogen dRVVT Confirm Interp Factor V Activity POC ABG pH 7.499 H POC ABG pCO2 28.4 L POC ABG pO2 44 L ABG pO2 ABG HCO3 ABG Base Excess ABG Hemoglobin Oxyhemoglobin Sodium Potassium Chloride Carbon Dioxide BUN Creatinine Glucose POC Glucose 64 L 205 H Lactic Acid Calcium Phosphorus Magnesium Direct Bilirubin AST ALT Alkaline Phosphatase Lactate Dehydrogenase Troponin T C-Reactive Protein Total Protein Albumin Prealbumin Triglycerides Cholesterol LDL Cholesterol Direct HDL Cholesterol Urine pH Urine WBC (Auto) Urine Creatinine Urine Total Protein Fluid Total Protein Vancomycin Trough Rheumatoid Factor Complement C4 Miscellaneous Test Crossmatch 10/03/16 10/04/16 10/04/16 23:33 04:18 06:30 WBC RBC 2.54 L Hgb 7.1 L Hct 21.7 L MCV MCH MCHC RDW 19.5 H Plt Count 76 L Lymph % (Auto) [place] % (Auto) Lymph # [place] # Baso # Seg Neutrophils % Seg Neuts % (Manual) 88.0 H Lymphocytes % (Manual) 6.0 L Monocytes % (Manual) Eosinophils % (Manual) Basophils % (Manual) Nucleated RBC % Seg Neutrophils # Seg Neutrophils # Man 8.8 H Lymphocytes # (Manual) 0.6 L Monocytes # (Manual) Eosinophils # (Manual) Basophils # (Manual) PT INR Fibrinogen dRVVT Confirm Interp Factor V Activity POC ABG pH 7.461 H POC ABG pCO2 33.6 L POC ABG pO2 211 H ABG pO2 ABG HCO3 ABG Base Excess ABG Hemoglobin Oxyhemoglobin Sodium Potassium Chloride Carbon Dioxide BUN Creatinine Glucose POC Glucose 136 H Lactic Acid Calcium Phosphorus Magnesium Direct Bilirubin AST ALT Alkaline Phosphatase Lactate Dehydrogenase Troponin T C-Reactive Protein Total Protein Albumin Prealbumin Triglycerides Cholesterol LDL Cholesterol Direct HDL Cholesterol Urine pH Urine WBC (Auto) Urine Creatinine Urine Total Protein Fluid Total Protein Vancomycin Trough Rheumatoid Factor Complement C4 Miscellaneous Test Crossmatch 10/04/16 10/04/16 10/04/16 06:30 11:45 17:54 WBC RBC Hgb Hct MCV MCH MCHC RDW Plt Count Lymph % (Auto) [place] % (Auto) Lymph # [place] # Baso # Seg Neutrophils % Seg Neuts % (Manual) Lymphocytes % (Manual) Monocytes % (Manual) Eosinophils % (Manual) Basophils % (Manual) Nucleated RBC % Seg Neutrophils # Seg Neutrophils # Man Lymphocytes # (Manual) Monocytes # (Manual) Eosinophils # (Manual) Basophils # (Manual) PT INR Fibrinogen dRVVT Confirm Interp Factor V Activity POC ABG pH POC ABG pCO2 POC ABG pO2 ABG pO2 ABG HCO3 ABG Base Excess ABG Hemoglobin Oxyhemoglobin Sodium 128 L Potassium Chloride 87.4 L Carbon Dioxide 20 L BUN 34 H Creatinine 2.9 H Glucose 127 H POC Glucose 158 H 160 H Lactic Acid Calcium 7.4 L Phosphorus Magnesium Direct Bilirubin AST ALT Alkaline Phosphatase Lactate Dehydrogenase Troponin T C-Reactive Protein Total Protein Albumin Prealbumin Triglycerides Cholesterol LDL Cholesterol Direct HDL Cholesterol Urine pH Urine WBC (Auto) Urine Creatinine Urine Total Protein Fluid Total Protein Vancomycin Trough Rheumatoid Factor Complement C4 Miscellaneous Test Crossmatch 10/04/16 10/05/16 10/05/16 23:25 04:30 05:00 WBC RBC 2.64 L Hgb 7.5 L Hct 22.6 L MCV MCH MCHC RDW 19.3 H Plt Count 80 L Lymph % (Auto) [place] % (Auto) Lymph # [place] # Baso # Seg Neutrophils % Seg Neuts % (Manual) Lymphocytes % (Manual) 12.0 L Monocytes % (Manual) Eosinophils % (Manual) Basophils % (Manual) Nucleated RBC % Seg Neutrophils # Seg Neutrophils # Man Lymphocytes # (Manual) Monocytes # (Manual) Eosinophils # (Manual) Basophils # (Manual) PT INR Fibrinogen dRVVT Confirm Interp Factor V Activity POC ABG pH 7.475 H POC ABG pCO2 33.3 L POC ABG pO2 140 H ABG pO2 ABG HCO3 ABG Base Excess ABG Hemoglobin Oxyhemoglobin Sodium Potassium Chloride Carbon Dioxide BUN Creatinine Glucose POC Glucose 141 H Lactic Acid Calcium Phosphorus Magnesium Direct Bilirubin AST ALT Alkaline Phosphatase Lactate Dehydrogenase Troponin T C-Reactive Protein Total Protein Albumin Prealbumin Triglycerides Cholesterol LDL Cholesterol Direct HDL Cholesterol Urine pH Urine WBC (Auto) Urine Creatinine Urine Total Protein Fluid Total Protein Vancomycin Trough Rheumatoid Factor Complement C4 Miscellaneous Test Crossmatch 10/05/16 10/05/16 10/05/16 05:00 05:09 12:58 WBC RBC Hgb Hct MCV MCH MCHC RDW Plt Count Lymph % (Auto) [place] % (Auto) Lymph # [place] # Baso # Seg Neutrophils % Seg Neuts % (Manual) Lymphocytes % (Manual) Monocytes % (Manual) Eosinophils % (Manual) Basophils % (Manual) Nucleated RBC % Seg Neutrophils # Seg Neutrophils # Man Lymphocytes # (Manual) Monocytes # (Manual) Eosinophils # (Manual) Basophils # (Manual) PT INR Fibrinogen dRVVT Confirm Interp Factor V Activity POC ABG pH POC ABG pCO2 POC ABG pO2 ABG pO2 ABG HCO3 ABG Base Excess ABG Hemoglobin Oxyhemoglobin Sodium 131 L Potassium Chloride 94.0 L Carbon Dioxide 20 L BUN 22 H Creatinine 2.0 H Glucose 123 H POC Glucose 166 H 179 H Lactic Acid Calcium 7.7 L Phosphorus 2.20 L D Magnesium Direct Bilirubin AST ALT Alkaline Phosphatase Lactate Dehydrogenase Troponin T C-Reactive Protein Total Protein Albumin Prealbumin Triglycerides Cholesterol LDL Cholesterol Direct HDL Cholesterol Urine pH Urine WBC (Auto) Urine Creatinine Urine Total Protein Fluid Total Protein Vancomycin Trough Rheumatoid Factor Complement C4 Miscellaneous Test Crossmatch 10/05/16 10/05/16 10/05/16 15:50 18:53 23:12 WBC RBC Hgb Hct MCV MCH MCHC RDW Plt Count Lymph % (Auto) [place] % (Auto) Lymph # [place] # Baso # Seg Neutrophils % Seg Neuts % (Manual) Lymphocytes % (Manual) Monocytes % (Manual) Eosinophils % (Manual) Basophils % (Manual) Nucleated RBC % Seg Neutrophils # Seg Neutrophils # Man Lymphocytes # (Manual) Monocytes # (Manual) Eosinophils # (Manual) Basophils # (Manual) PT INR Fibrinogen dRVVT Confirm Interp Factor V Activity POC ABG pH POC ABG pCO2 POC ABG pO2 ABG pO2 ABG HCO3 ABG Base Excess ABG Hemoglobin Oxyhemoglobin Sodium Potassium Chloride Carbon Dioxide BUN Creatinine Glucose POC Glucose 150 H 164 H Lactic Acid Calcium Phosphorus Magnesium Direct Bilirubin AST ALT Alkaline Phosphatase Lactate Dehydrogenase Troponin T C-Reactive Protein Total Protein Albumin Prealbumin Triglycerides Cholesterol LDL Cholesterol Direct HDL Cholesterol Urine pH Urine WBC (Auto) Urine Creatinine Urine Total Protein Fluid Total Protein Vancomycin Trough Rheumatoid Factor Complement C4 Miscellaneous Test Crossmatch See Detail 10/06/16 10/06/16 10/06/16 03:50 03:50 04:53 WBC RBC 3.00 L Hgb 8.6 L Hct 25.8 L MCV MCH MCHC RDW 17.9 H Plt Count 65 L Lymph % (Auto) [place] % (Auto) Lymph # [place] # Baso # Seg Neutrophils % Seg Neuts % (Manual) 30.0 L Lymphocytes % (Manual) 5.0 L Monocytes % (Manual) Eosinophils % (Manual) Basophils % (Manual) Nucleated RBC % Seg Neutrophils # Seg Neutrophils # Man Lymphocytes # (Manual) 0.4 L Monocytes # (Manual) Eosinophils # (Manual) Basophils # (Manual) PT INR Fibrinogen dRVVT Confirm Interp Factor V Activity POC ABG pH 7.310 L POC ABG pCO2 49.0 H POC ABG pO2 ABG pO2 ABG HCO3 ABG Base Excess ABG Hemoglobin Oxyhemoglobin Sodium 133 L Potassium Chloride 95.9 L Carbon Dioxide BUN 26 H Creatinine 2.0 H Glucose 116 H POC Glucose Lactic Acid Calcium 7.8 L Phosphorus Magnesium Direct Bilirubin AST ALT Alkaline Phosphatase Lactate Dehydrogenase Troponin T C-Reactive Protein Total Protein Albumin Prealbumin Triglycerides Cholesterol LDL Cholesterol Direct HDL Cholesterol Urine pH Urine WBC (Auto) Urine Creatinine Urine Total Protein Fluid Total Protein Vancomycin Trough Rheumatoid Factor Complement C4 Miscellaneous Test Crossmatch 10/06/16 10/06/16 10/06/16 05:23 11:52 18:34 WBC RBC Hgb Hct MCV MCH MCHC RDW Plt Count Lymph % (Auto) [place] % (Auto) Lymph # [place] # Baso # Seg Neutrophils % Seg Neuts % (Manual) Lymphocytes % (Manual) Monocytes % (Manual) Eosinophils % (Manual) Basophils % (Manual) Nucleated RBC % Seg Neutrophils # Seg Neutrophils # Man Lymphocytes # (Manual) Monocytes # (Manual) Eosinophils # (Manual) Basophils # (Manual) PT INR Fibrinogen dRVVT Confirm Interp Factor V Activity POC ABG pH POC ABG pCO2 POC ABG pO2 ABG pO2 ABG HCO3 ABG Base Excess ABG Hemoglobin Oxyhemoglobin Sodium Potassium Chloride Carbon Dioxide BUN Creatinine Glucose POC Glucose 126 H 116 H 129 H Lactic Acid Calcium Phosphorus Magnesium Direct Bilirubin AST ALT Alkaline Phosphatase Lactate Dehydrogenase Troponin T C-Reactive Protein Total Protein Albumin Prealbumin Triglycerides Cholesterol LDL Cholesterol Direct HDL Cholesterol Urine pH Urine WBC (Auto) Urine Creatinine Urine Total Protein Fluid Total Protein Vancomycin Trough Rheumatoid Factor Complement C4 Miscellaneous Test Crossmatch 10/07/16 10/07/16 10/07/16 03:45 05:00 10:00 WBC 17.0 H RBC 2.68 L Hgb 7.3 L Hct 25.3 L MCV MCH 27 L MCHC 29 L RDW 19.6 H Plt Count 74 L Lymph % (Auto) [place] % (Auto) Lymph # [place] # Baso # Seg Neutrophils % Seg Neuts % (Manual) Lymphocytes % (Manual) 12.0 L Monocytes % (Manual) Eosinophils % (Manual) Basophils % (Manual) Nucleated RBC % 4.0 H Seg Neutrophils # Seg Neutrophils # Man 10.7 H Lymphocytes # (Manual) Monocytes # (Manual) Eosinophils # (Manual) Basophils # (Manual) PT INR Fibrinogen dRVVT Confirm Interp Factor V Activity POC ABG pH POC ABG pCO2 POC ABG pO2 ABG pO2 ABG HCO3 ABG Base Excess ABG Hemoglobin Oxyhemoglobin Sodium 130 L Potassium 3.2 L Chloride 93.9 L Carbon Dioxide 20 L BUN 44 H Creatinine 2.7 H Glucose 129 H POC Glucose Lactic Acid Calcium 7.4 L Phosphorus Magnesium Direct Bilirubin AST ALT 6 L Alkaline Phosphatase 195 H Lactate Dehydrogenase Troponin T C-Reactive Protein Total Protein 4.9 L Albumin 1.0 L Prealbumin Triglycerides Cholesterol LDL Cholesterol Direct HDL Cholesterol Urine pH Urine WBC (Auto) Urine Creatinine Urine Total Protein Fluid Total Protein Vancomycin Trough Rheumatoid Factor Complement C4 Miscellaneous Test Flexitest 1 H Crossmatch 10/07/16 10/07/16 10/07/16 10:00 11:24 18:10 WBC RBC Hgb Hct MCV MCH MCHC RDW Plt Count Lymph % (Auto) [place] % (Auto) Lymph # [place] # Baso # Seg Neutrophils % Seg Neuts % (Manual) Lymphocytes % (Manual) Monocytes % (Manual) Eosinophils % (Manual) Basophils % (Manual) Nucleated RBC % Seg Neutrophils # Seg Neutrophils # Man Lymphocytes # (Manual) Monocytes # (Manual) Eosinophils # (Manual) Basophils # (Manual) PT INR Fibrinogen dRVVT Confirm Interp Factor V Activity POC ABG pH POC ABG pCO2 POC ABG pO2 ABG pO2 ABG HCO3 ABG Base Excess ABG Hemoglobin Oxyhemoglobin Sodium Potassium Chloride Carbon Dioxide BUN Creatinine Glucose POC Glucose 116 H 130 H Lactic Acid Calcium Phosphorus Magnesium Direct Bilirubin AST ALT Alkaline Phosphatase Lactate Dehydrogenase Troponin T C-Reactive Protein 19.40 H Total Protein Albumin Prealbumin Triglycerides Cholesterol LDL Cholesterol Direct HDL Cholesterol Urine pH Urine WBC (Auto) Urine Creatinine Urine Total Protein Fluid Total Protein Vancomycin Trough Rheumatoid Factor Complement C4 Miscellaneous Test Crossmatch 10/07/16 10/08/16 10/08/16 18:30 00:00 04:00 WBC RBC Hgb Hct MCV MCH MCHC RDW Plt Count Lymph % (Auto) [place] % (Auto) Lymph # [place] # Baso # Seg Neutrophils % Seg Neuts % (Manual) Lymphocytes % (Manual) Monocytes % (Manual) Eosinophils % (Manual) Basophils % (Manual) Nucleated RBC % Seg Neutrophils # Seg Neutrophils # Man Lymphocytes # (Manual) Monocytes # (Manual) Eosinophils # (Manual) Basophils # (Manual) PT INR Fibrinogen dRVVT Confirm Interp Factor V Activity POC ABG pH POC ABG pCO2 POC ABG pO2 ABG pO2 ABG HCO3 ABG Base Excess ABG Hemoglobin Oxyhemoglobin Sodium 132 L Potassium 3.3 L Chloride 93.6 L Carbon Dioxide 17 L BUN 59 H Creatinine 2.7 H Glucose 121 H POC Glucose 122 H Lactic Acid Calcium 7.6 L Phosphorus Magnesium Direct Bilirubin AST ALT Alkaline Phosphatase Lactate Dehydrogenase Troponin T C-Reactive Protein Total Protein Albumin Prealbumin Triglycerides Cholesterol LDL Cholesterol Direct HDL Cholesterol Urine pH Urine WBC (Auto) > 182.0 H Urine Creatinine Urine Total Protein Fluid Total Protein Vancomycin Trough Rheumatoid Factor Complement C4 Miscellaneous Test Crossmatch 10/08/16 10/08/16 10/08/16 04:30 05:30 11:51 WBC RBC 5.15 H Hgb 14.4 H D Hct 44.5 H D MCV MCH MCHC RDW 19.5 H Plt Count 56 L Lymph % (Auto) [place] % (Auto) Lymph # [place] # Baso # Seg Neutrophils % Seg Neuts % (Manual) 24.0 L Lymphocytes % (Manual) 8.0 L Monocytes % (Manual) Eosinophils % (Manual) Basophils % (Manual) Nucleated RBC % 9.0 H Seg Neutrophils # Seg Neutrophils # Man Lymphocytes # (Manual) 0.7 L Monocytes # (Manual) Eosinophils # (Manual) Basophils # (Manual) PT INR Fibrinogen dRVVT Confirm Interp Factor V Activity POC ABG pH POC ABG pCO2 POC ABG pO2 ABG pO2 ABG HCO3 ABG Base Excess ABG Hemoglobin Oxyhemoglobin Sodium Potassium Chloride Carbon Dioxide BUN Creatinine Glucose POC Glucose 125 H 150 H Lactic Acid Calcium Phosphorus Magnesium Direct Bilirubin AST ALT Alkaline Phosphatase Lactate Dehydrogenase Troponin T C-Reactive Protein Total Protein Albumin Prealbumin Triglycerides Cholesterol LDL Cholesterol Direct HDL Cholesterol Urine pH Urine WBC (Auto) Urine Creatinine Urine Total Protein Fluid Total Protein Vancomycin Trough Rheumatoid Factor Complement C4 Miscellaneous Test Crossmatch 10/08/16 10/08/16 10/08/16 12:49 17:07 19:30 WBC RBC Hgb 7.1 L D Hct 22.4 L D MCV MCH MCHC RDW Plt Count Lymph % (Auto) [place] % (Auto) Lymph # [place] # Baso # Seg Neutrophils % Seg Neuts % (Manual) Lymphocytes % (Manual) Monocytes % (Manual) Eosinophils % (Manual) Basophils % (Manual) Nucleated RBC % Seg Neutrophils # Seg Neutrophils # Man Lymphocytes # (Manual) Monocytes # (Manual) Eosinophils # (Manual) Basophils # (Manual) PT INR Fibrinogen dRVVT Confirm Interp Factor V Activity POC ABG pH POC ABG pCO2 28.2 L POC ABG pO2 111 H ABG pO2 ABG HCO3 ABG Base Excess ABG Hemoglobin Oxyhemoglobin Sodium Potassium Chloride Carbon Dioxide BUN Creatinine Glucose POC Glucose 145 H Lactic Acid Calcium Phosphorus Magnesium Direct Bilirubin AST ALT Alkaline Phosphatase Lactate Dehydrogenase Troponin T C-Reactive Protein Total Protein Albumin Prealbumin Triglycerides Cholesterol LDL Cholesterol Direct HDL Cholesterol Urine pH Urine WBC (Auto) Urine Creatinine Urine Total Protein Fluid Total Protein Vancomycin Trough Rheumatoid Factor Complement C4 Miscellaneous Test Crossmatch 10/08/16 10/09/16 10/09/16 19:30 03:45 03:45 WBC 12.6 H RBC 2.36 L Hgb 6.7 L Hct 21.1 L MCV MCH MCHC RDW 19.5 H Plt Count 75 L Lymph % (Auto) [place] % (Auto) Lymph # [place] # Baso # Seg Neutrophils % Seg Neuts % (Manual) Lymphocytes % (Manual) Monocytes % (Manual) 10.0 H Eosinophils % (Manual) Basophils % (Manual) Nucleated RBC % 3.0 H Seg Neutrophils # Seg Neutrophils # Man Lymphocytes # (Manual) Monocytes # (Manual) 1.3 H Eosinophils # (Manual) Basophils # (Manual) PT 18.0 H INR 1.41 H Fibrinogen dRVVT Confirm Interp Factor V Activity POC ABG pH POC ABG pCO2 POC ABG pO2 ABG pO2 ABG HCO3 ABG Base Excess ABG Hemoglobin Oxyhemoglobin Sodium 135 L Potassium Chloride Carbon Dioxide 17 L BUN 81 H Creatinine 3.2 H Glucose 109 H POC Glucose Lactic Acid Calcium 7.4 L Phosphorus 4.60 H D Magnesium Direct Bilirubin AST ALT Alkaline Phosphatase Lactate Dehydrogenase Troponin T C-Reactive Protein Total Protein Albumin Prealbumin Triglycerides Cholesterol LDL Cholesterol Direct HDL Cholesterol Urine pH Urine WBC (Auto) Urine Creatinine Urine Total Protein Fluid Total Protein Vancomycin Trough Rheumatoid Factor Complement C4 Miscellaneous Test Crossmatch 10/09/16 10/09/16 10/09/16 03:45 05:14 07:20 WBC RBC Hgb Hct MCV MCH MCHC RDW Plt Count Lymph % (Auto) [place] % (Auto) Lymph # [place] # Baso # Seg Neutrophils % Seg Neuts % (Manual) Lymphocytes % (Manual) Monocytes % (Manual) Eosinophils % (Manual) Basophils % (Manual) Nucleated RBC % Seg Neutrophils # Seg Neutrophils # Man Lymphocytes # (Manual) Monocytes # (Manual) Eosinophils # (Manual) Basophils # (Manual) PT 19.0 H INR 1.51 H Fibrinogen dRVVT Confirm Interp Factor V Activity POC ABG pH POC ABG pCO2 POC ABG pO2 ABG pO2 ABG HCO3 ABG Base Excess ABG Hemoglobin Oxyhemoglobin Sodium Potassium Chloride Carbon Dioxide BUN Creatinine Glucose POC Glucose 151 H Lactic Acid Calcium Phosphorus Magnesium Direct Bilirubin AST ALT Alkaline Phosphatase Lactate Dehydrogenase Troponin T C-Reactive Protein Total Protein Albumin Prealbumin Triglycerides Cholesterol LDL Cholesterol Direct HDL Cholesterol Urine pH Urine WBC (Auto) Urine Creatinine Urine Total Protein Fluid Total Protein Vancomycin Trough Rheumatoid Factor Complement C4 Miscellaneous Test Crossmatch See Detail 10/09/16 10/09/16 10/09/16 11:46 16:20 16:43 WBC RBC Hgb 7.2 L Hct 22.2 L MCV MCH MCHC RDW Plt Count Lymph % (Auto) [place] % (Auto) Lymph # [place] # Baso # Seg Neutrophils % Seg Neuts % (Manual) Lymphocytes % (Manual) Monocytes % (Manual) Eosinophils % (Manual) Basophils % (Manual) Nucleated RBC % Seg Neutrophils # Seg Neutrophils # Man Lymphocytes # (Manual) Monocytes # (Manual) Eosinophils # (Manual) Basophils # (Manual) PT INR Fibrinogen dRVVT Confirm Interp Factor V Activity POC ABG pH POC ABG pCO2 POC ABG pO2 ABG pO2 ABG HCO3 ABG Base Excess ABG Hemoglobin Oxyhemoglobin Sodium Potassium Chloride Carbon Dioxide BUN Creatinine Glucose POC Glucose 133 H 141 H Lactic Acid Calcium Phosphorus Magnesium Direct Bilirubin AST ALT Alkaline Phosphatase Lactate Dehydrogenase Troponin T C-Reactive Protein Total Protein Albumin Prealbumin Triglycerides Cholesterol LDL Cholesterol Direct HDL Cholesterol Urine pH Urine WBC (Auto) Urine Creatinine Urine Total Protein Fluid Total Protein Vancomycin Trough Rheumatoid Factor Complement C4 Miscellaneous Test Crossmatch 10/10/16 10/10/16 10/10/16 05:00 05:00 11:19 WBC 18.5 H RBC 2.19 L Hgb 6.4 L Hct 19.6 L* MCV MCH MCHC RDW 19.3 H Plt Count 93 L Lymph % (Auto) [place] % (Auto) Lymph # [place] # Baso # Seg Neutrophils % Seg Neuts % (Manual) Lymphocytes % (Manual) 10.0 L Monocytes % (Manual) Eosinophils % (Manual) Basophils % (Manual) Nucleated RBC % 4.0 H Seg Neutrophils # Seg Neutrophils # Man 11.3 H Lymphocytes # (Manual) Monocytes # (Manual) Eosinophils # (Manual) Basophils # (Manual) PT INR Fibrinogen dRVVT Confirm Interp Factor V Activity POC ABG pH POC ABG pCO2 POC ABG pO2 ABG pO2 ABG HCO3 ABG Base Excess ABG Hemoglobin Oxyhemoglobin Sodium Potassium 5.7 H D Chloride Carbon Dioxide 16 L BUN 94 H Creatinine 3.1 H Glucose 131 H POC Glucose 153 H Lactic Acid Calcium 8.2 L Phosphorus 5.10 H Magnesium 2.40 H Direct Bilirubin 0.3 H AST ALT < 5 L Alkaline Phosphatase 319 H Lactate Dehydrogenase Troponin T C-Reactive Protein Total Protein 5.1 L Albumin 1.0 L Prealbumin Triglycerides Cholesterol LDL Cholesterol Direct HDL Cholesterol Urine pH Urine WBC (Auto) Urine Creatinine Urine Total Protein Fluid Total Protein Vancomycin Trough Rheumatoid Factor Complement C4 Miscellaneous Test Crossmatch 10/10/16 10/10/16 10/11/16 17:50 23:30 04:15 WBC RBC Hgb Hct MCV MCH MCHC RDW Plt Count Lymph % (Auto) [place] % (Auto) Lymph # [place] # Baso # Seg Neutrophils % Seg Neuts % (Manual) Lymphocytes % (Manual) Monocytes % (Manual) Eosinophils % (Manual) Basophils % (Manual) Nucleated RBC % Seg Neutrophils # Seg Neutrophils # Man Lymphocytes # (Manual) Monocytes # (Manual) Eosinophils # (Manual) Basophils # (Manual) PT INR Fibrinogen dRVVT Confirm Interp Factor V Activity POC ABG pH POC ABG pCO2 POC ABG pO2 ABG pO2 ABG HCO3 ABG Base Excess ABG Hemoglobin Oxyhemoglobin Sodium Potassium Chloride 96.4 L Carbon Dioxide 21 L BUN 57 H Creatinine 2.1 H Glucose 151 H POC Glucose 146 H 141 H Lactic Acid Calcium 8.3 L Phosphorus Magnesium Direct Bilirubin AST ALT Alkaline Phosphatase Lactate Dehydrogenase Troponin T C-Reactive Protein Total Protein Albumin Prealbumin Triglycerides Cholesterol LDL Cholesterol Direct HDL Cholesterol Urine pH Urine WBC (Auto) Urine Creatinine Urine Total Protein Fluid Total Protein Vancomycin Trough Rheumatoid Factor Complement C4 Miscellaneous Test Crossmatch 10/11/16 10/11/16 10/11/16 04:15 04:15 05:30 WBC 28.3 H RBC 3.12 L Hgb 9.3 L Hct 28.7 L D MCV MCH MCHC RDW 17.7 H Plt Count 128 L Lymph % (Auto) [place] % (Auto) Lymph # [place] # Baso # Seg Neutrophils % Seg Neuts % (Manual) Lymphocytes % (Manual) Monocytes % (Manual) Eosinophils % (Manual) Basophils % (Manual) Nucleated RBC % Seg Neutrophils # Seg Neutrophils # Man Lymphocytes # (Manual) Monocytes # (Manual) Eosinophils # (Manual) Basophils # (Manual) PT INR Fibrinogen dRVVT Confirm Interp Factor V Activity POC ABG pH POC ABG pCO2 POC ABG pO2 ABG pO2 ABG HCO3 ABG Base Excess ABG Hemoglobin Oxyhemoglobin Sodium Potassium Chloride Carbon Dioxide BUN Creatinine Glucose POC Glucose 167 H Lactic Acid Calcium Phosphorus Magnesium Direct Bilirubin AST ALT Alkaline Phosphatase Lactate Dehydrogenase Troponin T C-Reactive Protein 15.80 H Total Protein Albumin Prealbumin Triglycerides Cholesterol LDL Cholesterol Direct HDL Cholesterol Urine pH Urine WBC (Auto) Urine Creatinine Urine Total Protein Fluid Total Protein Vancomycin Trough Rheumatoid Factor Complement C4 Miscellaneous Test Crossmatch 10/11/16 10/11/16 10/11/16 11:40 15:49 23:57 WBC RBC Hgb Hct MCV MCH MCHC RDW Plt Count Lymph % (Auto) [place] % (Auto) Lymph # [place] # Baso # Seg Neutrophils % Seg Neuts % (Manual) Lymphocytes % (Manual) Monocytes % (Manual) Eosinophils % (Manual) Basophils % (Manual) Nucleated RBC % Seg Neutrophils # Seg Neutrophils # Man Lymphocytes # (Manual) Monocytes # (Manual) Eosinophils # (Manual) Basophils # (Manual) PT INR Fibrinogen dRVVT Confirm Interp Factor V Activity POC ABG pH POC ABG pCO2 POC ABG pO2 ABG pO2 ABG HCO3 ABG Base Excess ABG Hemoglobin Oxyhemoglobin Sodium Potassium Chloride Carbon Dioxide BUN Creatinine Glucose POC Glucose 139 H 168 H 161 H Lactic Acid Calcium Phosphorus Magnesium Direct Bilirubin AST ALT Alkaline Phosphatase Lactate Dehydrogenase Troponin T C-Reactive Protein Total Protein Albumin Prealbumin Triglycerides Cholesterol LDL Cholesterol Direct HDL Cholesterol Urine pH Urine WBC (Auto) Urine Creatinine Urine Total Protein Fluid Total Protein Vancomycin Trough Rheumatoid Factor Complement C4 Miscellaneous Test Crossmatch 10/12/16 10/12/16 10/12/16 04:40 04:40 05:44 WBC 22.5 H RBC 2.88 L Hgb 8.8 L Hct 26.8 L MCV MCH MCHC RDW 17.8 H Plt Count Lymph % (Auto) [place] % (Auto) Lymph # [place] # Baso # Seg Neutrophils % Seg Neuts % (Manual) Lymphocytes % (Manual) Monocytes % (Manual) Eosinophils % (Manual) Basophils % (Manual) Nucleated RBC % Seg Neutrophils # Seg Neutrophils # Man Lymphocytes # (Manual) Monocytes # (Manual) Eosinophils # (Manual) Basophils # (Manual) PT INR Fibrinogen dRVVT Confirm Interp Factor V Activity POC ABG pH POC ABG pCO2 POC ABG pO2 ABG pO2 ABG HCO3 ABG Base Excess ABG Hemoglobin Oxyhemoglobin Sodium 134 L Potassium Chloride 93.0 L Carbon Dioxide BUN 74 H Creatinine 2.5 H Glucose 137 H POC Glucose 158 H Lactic Acid Calcium 8.2 L Phosphorus Magnesium Direct Bilirubin AST ALT Alkaline Phosphatase Lactate Dehydrogenase Troponin T C-Reactive Protein Total Protein Albumin Prealbumin Triglycerides Cholesterol LDL Cholesterol Direct HDL Cholesterol Urine pH Urine WBC (Auto) Urine Creatinine Urine Total Protein Fluid Total Protein Vancomycin Trough Rheumatoid Factor Complement C4 Miscellaneous Test Crossmatch 10/12/16 10/12/16 10/12/16 12:27 18:18 23:46 WBC RBC Hgb Hct MCV MCH MCHC RDW Plt Count Lymph % (Auto) [place] % (Auto) Lymph # [place] # Baso # Seg Neutrophils % Seg Neuts % (Manual) Lymphocytes % (Manual) Monocytes % (Manual) Eosinophils % (Manual) Basophils % (Manual) Nucleated RBC % Seg Neutrophils # Seg Neutrophils # Man Lymphocytes # (Manual) Monocytes # (Manual) Eosinophils # (Manual) Basophils # (Manual) PT INR Fibrinogen dRVVT Confirm Interp Factor V Activity POC ABG pH POC ABG pCO2 POC ABG pO2 ABG pO2 ABG HCO3 ABG Base Excess ABG Hemoglobin Oxyhemoglobin Sodium Potassium Chloride Carbon Dioxide BUN Creatinine Glucose POC Glucose 153 H 140 H 150 H Lactic Acid Calcium Phosphorus Magnesium Direct Bilirubin AST ALT Alkaline Phosphatase Lactate Dehydrogenase Troponin T C-Reactive Protein Total Protein Albumin Prealbumin Triglycerides Cholesterol LDL Cholesterol Direct HDL Cholesterol Urine pH Urine WBC (Auto) Urine Creatinine Urine Total Protein Fluid Total Protein Vancomycin Trough Rheumatoid Factor Complement C4 Miscellaneous Test Crossmatch 10/13/16 10/13/16 10/13/16 06:22 09:20 12:29 WBC RBC Hgb Hct MCV MCH MCHC RDW Plt Count Lymph % (Auto) [place] % (Auto) Lymph # [place] # Baso # Seg Neutrophils % Seg Neuts % (Manual) Lymphocytes % (Manual) Monocytes % (Manual) Eosinophils % (Manual) Basophils % (Manual) Nucleated RBC % Seg Neutrophils # Seg Neutrophils # Man Lymphocytes # (Manual) Monocytes # (Manual) Eosinophils # (Manual) Basophils # (Manual) PT INR Fibrinogen dRVVT Confirm Interp Factor V Activity POC ABG pH POC ABG pCO2 POC ABG pO2 ABG pO2 ABG HCO3 ABG Base Excess ABG Hemoglobin Oxyhemoglobin Sodium Potassium Chloride Carbon Dioxide BUN Creatinine Glucose POC Glucose 165 H 193 H Lactic Acid Calcium Phosphorus Magnesium Direct Bilirubin AST ALT Alkaline Phosphatase Lactate Dehydrogenase Troponin T C-Reactive Protein Total Protein Albumin Prealbumin Triglycerides Cholesterol LDL Cholesterol Direct HDL Cholesterol Urine pH Urine WBC (Auto) Urine Creatinine Urine Total Protein Fluid Total Protein Vancomycin Trough Rheumatoid Factor Complement C4 Miscellaneous Test Flexitest 1 H Crossmatch 10/13/16 10/13/16 10/13/16 18:09 Unknown Unknown WBC 23.4 H RBC 2.83 L Hgb 8.7 L Hct 26.1 L MCV MCH MCHC RDW 18.1 H Plt Count Lymph % (Auto) [place] % (Auto) Lymph # [place] # Baso # Seg Neutrophils % Seg Neuts % (Manual) Lymphocytes % (Manual) Monocytes % (Manual) Eosinophils % (Manual) Basophils % (Manual) Nucleated RBC % Seg Neutrophils # Seg Neutrophils # Man Lymphocytes # (Manual) Monocytes # (Manual) Eosinophils # (Manual) Basophils # (Manual) PT INR Fibrinogen dRVVT Confirm Interp Factor V Activity POC ABG pH POC ABG pCO2 POC ABG pO2 ABG pO2 ABG HCO3 ABG Base Excess ABG Hemoglobin Oxyhemoglobin Sodium Potassium Chloride 95.8 L Carbon Dioxide BUN 82 H Creatinine 2.6 H Glucose 152 H POC Glucose 166 H Lactic Acid Calcium Phosphorus Magnesium Direct Bilirubin AST ALT Alkaline Phosphatase Lactate Dehydrogenase Troponin T C-Reactive Protein Total Protein Albumin Prealbumin Triglycerides Cholesterol LDL Cholesterol Direct HDL Cholesterol Urine pH Urine WBC (Auto) Urine Creatinine Urine Total Protein Fluid Total Protein Vancomycin Trough Rheumatoid Factor Complement C4 Miscellaneous Test Crossmatch 10/14/16 10/14/16 10/14/16 05:38 06:35 08:10 WBC 20.7 H RBC 2.81 L Hgb 8.4 L Hct 27.2 L MCV MCH MCHC RDW 19.4 H Plt Count Lymph % (Auto) [place] % (Auto) Lymph # [place] # Baso # Seg Neutrophils % Seg Neuts % (Manual) Lymphocytes % (Manual) Monocytes % (Manual) Eosinophils % (Manual) Basophils % (Manual) Nucleated RBC % Seg Neutrophils # Seg Neutrophils # Man Lymphocytes # (Manual) Monocytes # (Manual) Eosinophils # (Manual) Basophils # (Manual) PT INR Fibrinogen dRVVT Confirm Interp Factor V Activity POC ABG pH POC ABG pCO2 POC ABG pO2 ABG pO2 ABG HCO3 ABG Base Excess ABG Hemoglobin Oxyhemoglobin Sodium Potassium Chloride Carbon Dioxide BUN 58 H Creatinine 1.9 H Glucose 169 H POC Glucose 195 H Lactic Acid Calcium Phosphorus Magnesium Direct Bilirubin AST ALT Alkaline Phosphatase Lactate Dehydrogenase Troponin T C-Reactive Protein Total Protein Albumin Prealbumin Triglycerides Cholesterol LDL Cholesterol Direct HDL Cholesterol Urine pH Urine WBC (Auto) Urine Creatinine Urine Total Protein Fluid Total Protein Vancomycin Trough Rheumatoid Factor Complement C4 Miscellaneous Test Crossmatch 10/14/16 10/14/16 10/14/16 11:44 17:13 23:28 WBC RBC Hgb Hct MCV MCH MCHC RDW Plt Count Lymph % (Auto) [place] % (Auto) Lymph # [place] # Baso # Seg Neutrophils % Seg Neuts % (Manual) Lymphocytes % (Manual) Monocytes % (Manual) Eosinophils % (Manual) Basophils % (Manual) Nucleated RBC % Seg Neutrophils # Seg Neutrophils # Man Lymphocytes # (Manual) Monocytes # (Manual) Eosinophils # (Manual) Basophils # (Manual) PT INR Fibrinogen dRVVT Confirm Interp Factor V Activity POC ABG pH POC ABG pCO2 POC ABG pO2 ABG pO2 ABG HCO3 ABG Base Excess ABG Hemoglobin Oxyhemoglobin Sodium Potassium Chloride Carbon Dioxide BUN Creatinine Glucose POC Glucose 174 H 121 H 151 H Lactic Acid Calcium Phosphorus Magnesium Direct Bilirubin AST ALT Alkaline Phosphatase Lactate Dehydrogenase Troponin T C-Reactive Protein Total Protein Albumin Prealbumin Triglycerides Cholesterol LDL Cholesterol Direct HDL Cholesterol Urine pH Urine WBC (Auto) Urine Creatinine Urine Total Protein Fluid Total Protein Vancomycin Trough Rheumatoid Factor Complement C4 Miscellaneous Test Crossmatch 10/15/16 10/15/16 10/15/16 05:06 12:26 17:48 WBC RBC Hgb Hct MCV MCH MCHC RDW Plt Count Lymph % (Auto) [place] % (Auto) Lymph # [place] # Baso # Seg Neutrophils % Seg Neuts % (Manual) Lymphocytes % (Manual) Monocytes % (Manual) Eosinophils % (Manual) Basophils % (Manual) Nucleated RBC % Seg Neutrophils # Seg Neutrophils # Man Lymphocytes # (Manual) Monocytes # (Manual) Eosinophils # (Manual) Basophils # (Manual) PT INR Fibrinogen dRVVT Confirm Interp Factor V Activity POC ABG pH POC ABG pCO2 POC ABG pO2 ABG pO2 ABG HCO3 ABG Base Excess ABG Hemoglobin Oxyhemoglobin Sodium Potassium Chloride Carbon Dioxide BUN Creatinine Glucose POC Glucose 151 H 149 H 153 H Lactic Acid Calcium Phosphorus Magnesium Direct Bilirubin AST ALT Alkaline Phosphatase Lactate Dehydrogenase Troponin T C-Reactive Protein Total Protein Albumin Prealbumin Triglycerides Cholesterol LDL Cholesterol Direct HDL Cholesterol Urine pH Urine WBC (Auto) Urine Creatinine Urine Total Protein Fluid Total Protein Vancomycin Trough Rheumatoid Factor Complement C4 Miscellaneous Test Crossmatch 10/15/16 10/15/16 10/16/16 Unknown Unknown 00:02 WBC 23.4 H RBC 2.78 L Hgb 8.5 L Hct 25.7 L MCV MCH MCHC RDW 18.7 H Plt Count Lymph % (Auto) [place] % (Auto) Lymph # [place] # Baso # Seg Neutrophils % Seg Neuts % (Manual) Lymphocytes % (Manual) Monocytes % (Manual) Eosinophils % (Manual) Basophils % (Manual) Nucleated RBC % Seg Neutrophils # Seg Neutrophils # Man Lymphocytes # (Manual) Monocytes # (Manual) Eosinophils # (Manual) Basophils # (Manual) PT INR Fibrinogen dRVVT Confirm Interp Factor V Activity POC ABG pH POC ABG pCO2 POC ABG pO2 ABG pO2 ABG HCO3 ABG Base Excess ABG Hemoglobin Oxyhemoglobin Sodium Potassium Chloride Carbon Dioxide BUN 73 H Creatinine 2.3 H Glucose 120 H POC Glucose 137 H Lactic Acid Calcium Phosphorus Magnesium Direct Bilirubin AST ALT Alkaline Phosphatase Lactate Dehydrogenase Troponin T C-Reactive Protein Total Protein Albumin Prealbumin Triglycerides Cholesterol LDL Cholesterol Direct HDL Cholesterol Urine pH Urine WBC (Auto) Urine Creatinine Urine Total Protein Fluid Total Protein Vancomycin Trough Rheumatoid Factor Complement C4 Miscellaneous Test Crossmatch 10/16/16 10/16/16 10/16/16 05:44 06:25 06:25 WBC 22.5 H RBC 2.76 L Hgb 8.3 L Hct 25.2 L MCV MCH MCHC RDW 18.3 H Plt Count Lymph % (Auto) [place] % (Auto) Lymph # [place] # Baso # Seg Neutrophils % Seg Neuts % (Manual) Lymphocytes % (Manual) Monocytes % (Manual) Eosinophils % (Manual) Basophils % (Manual) Nucleated RBC % Seg Neutrophils # Seg Neutrophils # Man Lymphocytes # (Manual) Monocytes # (Manual) Eosinophils # (Manual) Basophils # (Manual) PT INR Fibrinogen dRVVT Confirm Interp Factor V Activity POC ABG pH POC ABG pCO2 POC ABG pO2 ABG pO2 ABG HCO3 ABG Base Excess ABG Hemoglobin Oxyhemoglobin Sodium Potassium Chloride Carbon Dioxide BUN 92 H Creatinine 3.0 H Glucose 138 H POC Glucose 110 H Lactic Acid Calcium Phosphorus Magnesium Direct Bilirubin AST ALT Alkaline Phosphatase Lactate Dehydrogenase Troponin T C-Reactive Protein Total Protein Albumin Prealbumin Triglycerides Cholesterol LDL Cholesterol Direct HDL Cholesterol Urine pH Urine WBC (Auto) Urine Creatinine Urine Total Protein Fluid Total Protein Vancomycin Trough Rheumatoid Factor Complement C4 Miscellaneous Test Crossmatch 10/16/16 10/16/16 10/16/16 11:27 11:48 17:36 WBC RBC Hgb Hct MCV MCH MCHC RDW Plt Count Lymph % (Auto) [place] % (Auto) Lymph # [place] # Baso # Seg Neutrophils % Seg Neuts % (Manual) Lymphocytes % (Manual) Monocytes % (Manual) Eosinophils % (Manual) Basophils % (Manual) Nucleated RBC % Seg Neutrophils # Seg Neutrophils # Man Lymphocytes # (Manual) Monocytes # (Manual) Eosinophils # (Manual) Basophils # (Manual) PT INR Fibrinogen dRVVT Confirm Interp Factor V Activity POC ABG pH 7.582 H POC ABG pCO2 27.4 L POC ABG pO2 110 H ABG pO2 ABG HCO3 ABG Base Excess ABG Hemoglobin Oxyhemoglobin Sodium Potassium Chloride Carbon Dioxide BUN Creatinine Glucose POC Glucose 121 H 133 H Lactic Acid Calcium Phosphorus Magnesium Direct Bilirubin AST ALT Alkaline Phosphatase Lactate Dehydrogenase Troponin T C-Reactive Protein Total Protein Albumin Prealbumin Triglycerides Cholesterol LDL Cholesterol Direct HDL Cholesterol Urine pH Urine WBC (Auto) Urine Creatinine Urine Total Protein Fluid Total Protein Vancomycin Trough Rheumatoid Factor Complement C4 Miscellaneous Test Crossmatch 10/16/16 10/17/16 10/17/16 20:48 04:24 04:24 WBC 21.4 H RBC 2.72 L Hgb 8.0 L Hct 25.2 L MCV MCH MCHC RDW 18.0 H Plt Count Lymph % (Auto) [place] % (Auto) Lymph # [place] # Baso # Seg Neutrophils % Seg Neuts % (Manual) Lymphocytes % (Manual) Monocytes % (Manual) Eosinophils % (Manual) Basophils % (Manual) Nucleated RBC % Seg Neutrophils # Seg Neutrophils # Man Lymphocytes # (Manual) Monocytes # (Manual) Eosinophils # (Manual) Basophils # (Manual) PT INR Fibrinogen dRVVT Confirm Interp Factor V Activity POC ABG pH 7.561 H POC ABG pCO2 24.4 L POC ABG pO2 77 L ABG pO2 ABG HCO3 ABG Base Excess ABG Hemoglobin Oxyhemoglobin Sodium 148 H Potassium Chloride Carbon Dioxide BUN 104 H Creatinine 3.0 H Glucose 149 H POC Glucose Lactic Acid Calcium Phosphorus Magnesium Direct Bilirubin AST ALT Alkaline Phosphatase 138 H Lactate Dehydrogenase Troponin T C-Reactive Protein Total Protein 6.2 L Albumin 1.5 L Prealbumin Triglycerides Cholesterol LDL Cholesterol Direct HDL Cholesterol Urine pH Urine WBC (Auto) Urine Creatinine Urine Total Protein Fluid Total Protein Vancomycin Trough Rheumatoid Factor Complement C4 Miscellaneous Test Crossmatch 10/17/16 10/17/16 10/17/16 06:02 12:17 17:14 WBC RBC Hgb Hct MCV MCH MCHC RDW Plt Count Lymph % (Auto) [place] % (Auto) Lymph # [place] # Baso # Seg Neutrophils % Seg Neuts % (Manual) Lymphocytes % (Manual) Monocytes % (Manual) Eosinophils % (Manual) Basophils % (Manual) Nucleated RBC % Seg Neutrophils # Seg Neutrophils # Man Lymphocytes # (Manual) Monocytes # (Manual) Eosinophils # (Manual) Basophils # (Manual) PT INR Fibrinogen dRVVT Confirm Interp Factor V Activity POC ABG pH POC ABG pCO2 POC ABG pO2 ABG pO2 ABG HCO3 ABG Base Excess ABG Hemoglobin Oxyhemoglobin Sodium Potassium Chloride Carbon Dioxide BUN Creatinine Glucose POC Glucose 170 H 167 H 126 H Lactic Acid Calcium Phosphorus Magnesium Direct Bilirubin AST ALT Alkaline Phosphatase Lactate Dehydrogenase Troponin T C-Reactive Protein Total Protein Albumin Prealbumin Triglycerides Cholesterol LDL Cholesterol Direct HDL Cholesterol Urine pH Urine WBC (Auto) Urine Creatinine Urine Total Protein Fluid Total Protein Vancomycin Trough Rheumatoid Factor Complement C4 Miscellaneous Test Crossmatch 10/17/16 10/18/16 10/18/16 23:17 04:00 04:00 WBC 20.7 H RBC 2.47 L Hgb 7.4 L Hct 22.9 L MCV MCH MCHC RDW 17.5 H Plt Count Lymph % (Auto) [place] % (Auto) Lymph # [place] # Baso # Seg Neutrophils % Seg Neuts % (Manual) Lymphocytes % (Manual) Monocytes % (Manual) Eosinophils % (Manual) Basophils % (Manual) Nucleated RBC % Seg Neutrophils # Seg Neutrophils # Man Lymphocytes # (Manual) Monocytes # (Manual) Eosinophils # (Manual) Basophils # (Manual) PT INR Fibrinogen dRVVT Confirm Interp Factor V Activity POC ABG pH POC ABG pCO2 POC ABG pO2 ABG pO2 ABG HCO3 ABG Base Excess ABG Hemoglobin Oxyhemoglobin Sodium 149 H Potassium Chloride 107.9 H Carbon Dioxide 20 L BUN 117 H Creatinine 3.2 H Glucose 119 H POC Glucose 121 H Lactic Acid Calcium Phosphorus Magnesium Direct Bilirubin AST ALT Alkaline Phosphatase Lactate Dehydrogenase Troponin T C-Reactive Protein Total Protein Albumin Prealbumin Triglycerides Cholesterol LDL Cholesterol Direct HDL Cholesterol Urine pH Urine WBC (Auto) Urine Creatinine Urine Total Protein Fluid Total Protein Vancomycin Trough Rheumatoid Factor Complement C4 Miscellaneous Test Crossmatch 10/18/16 10/18/16 10/18/16 05:23 10:46 17:30 WBC RBC Hgb Hct MCV MCH MCHC RDW Plt Count Lymph % (Auto) [place] % (Auto) Lymph # [place] # Baso # Seg Neutrophils % Seg Neuts % (Manual) Lymphocytes % (Manual) Monocytes % (Manual) Eosinophils % (Manual) Basophils % (Manual) Nucleated RBC % Seg Neutrophils # Seg Neutrophils # Man Lymphocytes # (Manual) Monocytes # (Manual) Eosinophils # (Manual) Basophils # (Manual) PT INR Fibrinogen dRVVT Confirm Interp Factor V Activity POC ABG pH POC ABG pCO2 POC ABG pO2 ABG pO2 ABG HCO3 ABG Base Excess ABG Hemoglobin Oxyhemoglobin Sodium Potassium Chloride Carbon Dioxide BUN Creatinine Glucose POC Glucose 119 H 155 H 124 H Lactic Acid Calcium Phosphorus Magnesium Direct Bilirubin AST ALT Alkaline Phosphatase Lactate Dehydrogenase Troponin T C-Reactive Protein Total Protein Albumin Prealbumin Triglycerides Cholesterol LDL Cholesterol Direct HDL Cholesterol Urine pH Urine WBC (Auto) Urine Creatinine Urine Total Protein Fluid Total Protein Vancomycin Trough Rheumatoid Factor Complement C4 Miscellaneous Test Crossmatch 10/19/16 10/19/16 10/19/16 04:00 04:00 05:25 WBC 17.4 H RBC 2.54 L Hgb 7.7 L Hct 23.6 L MCV MCH MCHC RDW 17.3 H Plt Count Lymph % (Auto) [place] % (Auto) Lymph # [place] # Baso # Seg Neutrophils % Seg Neuts % (Manual) Lymphocytes % (Manual) Monocytes % (Manual) Eosinophils % (Manual) Basophils % (Manual) Nucleated RBC % Seg Neutrophils # Seg Neutrophils # Man Lymphocytes # (Manual) Monocytes # (Manual) Eosinophils # (Manual) Basophils # (Manual) PT INR Fibrinogen dRVVT Confirm Interp Factor V Activity POC ABG pH POC ABG pCO2 POC ABG pO2 ABG pO2 ABG HCO3 ABG Base Excess ABG Hemoglobin Oxyhemoglobin Sodium Potassium Chloride Carbon Dioxide BUN 72 H Creatinine 2.1 H Glucose 116 H POC Glucose 119 H Lactic Acid Calcium Phosphorus Magnesium Direct Bilirubin AST ALT Alkaline Phosphatase Lactate Dehydrogenase Troponin T C-Reactive Protein Total Protein Albumin Prealbumin Triglycerides Cholesterol LDL Cholesterol Direct HDL Cholesterol Urine pH Urine WBC (Auto) Urine Creatinine Urine Total Protein Fluid Total Protein Vancomycin Trough Rheumatoid Factor Complement C4 Miscellaneous Test Crossmatch 10/19/16 10/19/16 10/20/16 11:46 23:59 06:00 WBC RBC Hgb Hct MCV MCH MCHC RDW Plt Count Lymph % (Auto) [place] % (Auto) Lymph # [place] # Baso # Seg Neutrophils % Seg Neuts % (Manual) Lymphocytes % (Manual) Monocytes % (Manual) Eosinophils % (Manual) Basophils % (Manual) Nucleated RBC % Seg Neutrophils # Seg Neutrophils # Man Lymphocytes # (Manual) Monocytes # (Manual) Eosinophils # (Manual) Basophils # (Manual) PT INR Fibrinogen dRVVT Confirm Interp Factor V Activity POC ABG pH POC ABG pCO2 POC ABG pO2 ABG pO2 ABG HCO3 ABG Base Excess ABG Hemoglobin Oxyhemoglobin Sodium Potassium Chloride Carbon Dioxide 17 L BUN 94 H Creatinine 2.7 H Glucose POC Glucose 116 H 117 H Lactic Acid Calcium Phosphorus Magnesium Direct Bilirubin AST ALT Alkaline Phosphatase Lactate Dehydrogenase Troponin T C-Reactive Protein Total Protein Albumin Prealbumin Triglycerides Cholesterol LDL Cholesterol Direct HDL Cholesterol Urine pH Urine WBC (Auto) Urine Creatinine Urine Total Protein Fluid Total Protein Vancomycin Trough Rheumatoid Factor Complement C4 Miscellaneous Test Crossmatch 10/20/16 10/20/16 10/20/16 06:00 11:49 16:00 WBC 19.7 H RBC 2.51 L Hgb 7.7 L Hct 23.5 L MCV MCH MCHC RDW 17.5 H Plt Count Lymph % (Auto) [place] % (Auto) Lymph # [place] # Baso # Seg Neutrophils % Seg Neuts % (Manual) Lymphocytes % (Manual) Monocytes % (Manual) Eosinophils % (Manual) Basophils % (Manual) Nucleated RBC % Seg Neutrophils # Seg Neutrophils # Man Lymphocytes # (Manual) Monocytes # (Manual) Eosinophils # (Manual) Basophils # (Manual) PT INR Fibrinogen dRVVT Confirm Interp Factor V Activity POC ABG pH POC ABG pCO2 POC ABG pO2 ABG pO2 ABG HCO3 ABG Base Excess ABG Hemoglobin Oxyhemoglobin Sodium Potassium Chloride Carbon Dioxide BUN Creatinine Glucose POC Glucose 117 H Lactic Acid Calcium Phosphorus Magnesium Direct Bilirubin AST ALT Alkaline Phosphatase Lactate Dehydrogenase Troponin T C-Reactive Protein Total Protein Albumin Prealbumin Triglycerides Cholesterol LDL Cholesterol Direct HDL Cholesterol Urine pH Urine WBC (Auto) Urine Creatinine Urine Total Protein Fluid Total Protein Vancomycin Trough Rheumatoid Factor Complement C4 Miscellaneous Test Flexitest 1 H Crossmatch 10/20/16 10/20/16 10/21/16 18:36 23:39 04:00 WBC RBC Hgb Hct MCV MCH MCHC RDW Plt Count Lymph % (Auto) [place] % (Auto) Lymph # [place] # Baso # Seg Neutrophils % Seg Neuts % (Manual) Lymphocytes % (Manual) Monocytes % (Manual) Eosinophils % (Manual) Basophils % (Manual) Nucleated RBC % Seg Neutrophils # Seg Neutrophils # Man Lymphocytes # (Manual) Monocytes # (Manual) Eosinophils # (Manual) Basophils # (Manual) PT INR Fibrinogen dRVVT Confirm Interp Factor V Activity POC ABG pH POC ABG pCO2 POC ABG pO2 ABG pO2 ABG HCO3 ABG Base Excess ABG Hemoglobin Oxyhemoglobin Sodium Potassium 5.4 H D Chloride Carbon Dioxide 15 L BUN 110 H Creatinine 3.0 H Glucose POC Glucose 127 H 114 H Lactic Acid Calcium Phosphorus Magnesium Direct Bilirubin AST ALT Alkaline Phosphatase Lactate Dehydrogenase Troponin T C-Reactive Protein Total Protein Albumin Prealbumin Triglycerides Cholesterol LDL Cholesterol Direct HDL Cholesterol Urine pH Urine WBC (Auto) Urine Creatinine Urine Total Protein Fluid Total Protein Vancomycin Trough Rheumatoid Factor Complement C4 Miscellaneous Test Crossmatch 10/21/16 10/21/16 10/22/16 05:54 23:46 05:18 WBC RBC Hgb Hct MCV MCH MCHC RDW Plt Count Lymph % (Auto) [place] % (Auto) Lymph # [place] # Baso # Seg Neutrophils % Seg Neuts % (Manual) Lymphocytes % (Manual) Monocytes % (Manual) Eosinophils % (Manual) Basophils % (Manual) Nucleated RBC % Seg Neutrophils # Seg Neutrophils # Man Lymphocytes # (Manual) Monocytes # (Manual) Eosinophils # (Manual) Basophils # (Manual) PT INR Fibrinogen dRVVT Confirm Interp Factor V Activity POC ABG pH POC ABG pCO2 POC ABG pO2 ABG pO2 ABG HCO3 ABG Base Excess ABG Hemoglobin Oxyhemoglobin Sodium Potassium Chloride Carbon Dioxide BUN Creatinine Glucose POC Glucose 119 H 108 H 109 H Lactic Acid Calcium Phosphorus Magnesium Direct Bilirubin AST ALT Alkaline Phosphatase Lactate Dehydrogenase Troponin T C-Reactive Protein Total Protein Albumin Prealbumin Triglycerides Cholesterol LDL Cholesterol Direct HDL Cholesterol Urine pH Urine WBC (Auto) Urine Creatinine Urine Total Protein Fluid Total Protein Vancomycin Trough Rheumatoid Factor Complement C4 Miscellaneous Test Crossmatch 10/22/16 10/22/16 10/22/16 06:40 06:40 06:40 WBC 14.0 H RBC 2.03 L Hgb 7.0 L Hct 20.5 L MCV 98 H MCH 34 H MCHC 35 H RDW 17.8 H Plt Count Lymph % (Auto) [place] % (Auto) 9.9 H Lymph # [place] # 1.4 H Baso # 0.2 H Seg Neutrophils % 72.0 H Seg Neuts % (Manual) Lymphocytes % (Manual) Monocytes % (Manual) Eosinophils % (Manual) Basophils % (Manual) Nucleated RBC % Seg Neutrophils # 10.0 H Seg Neutrophils # Man Lymphocytes # (Manual) Monocytes # (Manual) Eosinophils # (Manual) Basophils # (Manual) PT INR Fibrinogen dRVVT Confirm Interp Factor V Activity POC ABG pH POC ABG pCO2 POC ABG pO2 ABG pO2 ABG HCO3 ABG Base Excess ABG Hemoglobin Oxyhemoglobin Sodium 130 L D Potassium Chloride 92.4 L Carbon Dioxide 20 L BUN 50 H Creatinine 1.6 H Glucose 589 H* POC Glucose Lactic Acid Calcium 7.8 L D Phosphorus Magnesium 1.60 L Direct Bilirubin AST ALT Alkaline Phosphatase Lactate Dehydrogenase Troponin T C-Reactive Protein Total Protein Albumin Prealbumin Triglycerides Cholesterol LDL Cholesterol Direct HDL Cholesterol Urine pH Urine WBC (Auto) Urine Creatinine Urine Total Protein Fluid Total Protein Vancomycin Trough Rheumatoid Factor Complement C4 Miscellaneous Test Crossmatch 10/22/16 10/22/16 10/22/16 11:39 16:44 23:36 WBC RBC Hgb Hct MCV MCH MCHC RDW Plt Count Lymph % (Auto) [place] % (Auto) Lymph # [place] # Baso # Seg Neutrophils % Seg Neuts % (Manual) Lymphocytes % (Manual) Monocytes % (Manual) Eosinophils % (Manual) Basophils % (Manual) Nucleated RBC % Seg Neutrophils # Seg Neutrophils # Man Lymphocytes # (Manual) Monocytes # (Manual) Eosinophils # (Manual) Basophils # (Manual) PT INR Fibrinogen dRVVT Confirm Interp Factor V Activity POC ABG pH POC ABG pCO2 POC ABG pO2 ABG pO2 ABG HCO3 ABG Base Excess ABG Hemoglobin Oxyhemoglobin Sodium Potassium Chloride Carbon Dioxide BUN Creatinine Glucose POC Glucose 142 H 163 H 123 H Lactic Acid Calcium Phosphorus Magnesium Direct Bilirubin AST ALT Alkaline Phosphatase Lactate Dehydrogenase Troponin T C-Reactive Protein Total Protein Albumin Prealbumin Triglycerides Cholesterol LDL Cholesterol Direct HDL Cholesterol Urine pH Urine WBC (Auto) Urine Creatinine Urine Total Protein Fluid Total Protein Vancomycin Trough Rheumatoid Factor Complement C4 Miscellaneous Test Crossmatch 10/23/16 10/23/16 10/23/16 04:58 06:00 12:12 WBC RBC Hgb Hct MCV MCH MCHC RDW Plt Count Lymph % (Auto) [place] % (Auto) Lymph # [place] # Baso # Seg Neutrophils % Seg Neuts % (Manual) Lymphocytes % (Manual) Monocytes % (Manual) Eosinophils % (Manual) Basophils % (Manual) Nucleated RBC % Seg Neutrophils # Seg Neutrophils # Man Lymphocytes # (Manual) Monocytes # (Manual) Eosinophils # (Manual) Basophils # (Manual) PT INR Fibrinogen dRVVT Confirm Interp Factor V Activity POC ABG pH POC ABG pCO2 POC ABG pO2 ABG pO2 ABG HCO3 ABG Base Excess ABG Hemoglobin Oxyhemoglobin Sodium 133 L Potassium 3.5 L Chloride 96.1 L Carbon Dioxide 18 L BUN 76 H Creatinine 2.1 H Glucose POC Glucose 133 H 138 H Lactic Acid Calcium 8.3 L Phosphorus Magnesium Direct Bilirubin AST ALT Alkaline Phosphatase Lactate Dehydrogenase Troponin T C-Reactive Protein Total Protein Albumin Prealbumin Triglycerides Cholesterol LDL Cholesterol Direct HDL Cholesterol Urine pH Urine WBC (Auto) Urine Creatinine Urine Total Protein Fluid Total Protein Vancomycin Trough Rheumatoid Factor Complement C4 Miscellaneous Test Crossmatch 10/23/16 10/23/16 10/24/16 16:53 23:37 04:00 WBC RBC Hgb Hct MCV MCH MCHC RDW Plt Count Lymph % (Auto) [place] % (Auto) Lymph # [place] # Baso # Seg Neutrophils % Seg Neuts % (Manual) Lymphocytes % (Manual) Monocytes % (Manual) Eosinophils % (Manual) Basophils % (Manual) Nucleated RBC % Seg Neutrophils # Seg Neutrophils # Man Lymphocytes # (Manual) Monocytes # (Manual) Eosinophils # (Manual) Basophils # (Manual) PT INR Fibrinogen dRVVT Confirm Interp Factor V Activity POC ABG pH POC ABG pCO2 POC ABG pO2 ABG pO2 ABG HCO3 ABG Base Excess ABG Hemoglobin Oxyhemoglobin Sodium 131 L Potassium Chloride 94.5 L Carbon Dioxide 19 L BUN 97 H Creatinine 2.6 H Glucose 110 H POC Glucose 125 H 123 H Lactic Acid Calcium 8.3 L Phosphorus Magnesium Direct Bilirubin AST ALT Alkaline Phosphatase Lactate Dehydrogenase Troponin T C-Reactive Protein Total Protein Albumin Prealbumin Triglycerides Cholesterol LDL Cholesterol Direct HDL Cholesterol Urine pH Urine WBC (Auto) Urine Creatinine Urine Total Protein Fluid Total Protein Vancomycin Trough Rheumatoid Factor Complement C4 Miscellaneous Test Crossmatch 10/24/16 10/24/16 10/24/16 07:49 11:39 17:52 WBC RBC Hgb 6.0 L Hct 19.7 L* MCV MCH MCHC RDW Plt Count Lymph % (Auto) [place] % (Auto) Lymph # [place] # Baso # Seg Neutrophils % Seg Neuts % (Manual) Lymphocytes % (Manual) Monocytes % (Manual) Eosinophils % (Manual) Basophils % (Manual) Nucleated RBC % Seg Neutrophils # Seg Neutrophils # Man Lymphocytes # (Manual) Monocytes # (Manual) Eosinophils # (Manual) Basophils # (Manual) PT INR Fibrinogen dRVVT Confirm Interp Factor V Activity POC ABG pH POC ABG pCO2 POC ABG pO2 ABG pO2 ABG HCO3 ABG Base Excess ABG Hemoglobin Oxyhemoglobin Sodium Potassium Chloride Carbon Dioxide BUN Creatinine Glucose POC Glucose 106 H 158 H Lactic Acid Calcium Phosphorus Magnesium Direct Bilirubin AST ALT Alkaline Phosphatase Lactate Dehydrogenase Troponin T C-Reactive Protein Total Protein Albumin Prealbumin Triglycerides Cholesterol LDL Cholesterol Direct HDL Cholesterol Urine pH Urine WBC (Auto) Urine Creatinine Urine Total Protein Fluid Total Protein Vancomycin Trough Rheumatoid Factor Complement C4 Miscellaneous Test Crossmatch 10/24/16 10/24/16 10/24/16 20:00 22:27 Unknown WBC RBC Hgb 9.4 L D Hct 27.5 L D MCV MCH MCHC RDW Plt Count Lymph % (Auto) [place] % (Auto) Lymph # [place] # Baso # Seg Neutrophils % Seg Neuts % (Manual) Lymphocytes % (Manual) Monocytes % (Manual) Eosinophils % (Manual) Basophils % (Manual) Nucleated RBC % Seg Neutrophils # Seg Neutrophils # Man Lymphocytes # (Manual) Monocytes # (Manual) Eosinophils # (Manual) Basophils # (Manual) PT INR Fibrinogen dRVVT Confirm Interp Factor V Activity POC ABG pH POC ABG pCO2 POC ABG pO2 ABG pO2 ABG HCO3 ABG Base Excess ABG Hemoglobin Oxyhemoglobin Sodium Potassium Chloride Carbon Dioxide BUN Creatinine Glucose POC Glucose 125 H Lactic Acid Calcium Phosphorus Magnesium Direct Bilirubin AST ALT Alkaline Phosphatase Lactate Dehydrogenase Troponin T C-Reactive Protein Total Protein Albumin Prealbumin Triglycerides Cholesterol LDL Cholesterol Direct HDL Cholesterol Urine pH Urine WBC (Auto) Urine Creatinine Urine Total Protein Fluid Total Protein Vancomycin Trough Rheumatoid Factor Complement C4 Miscellaneous Test Crossmatch See Detail 10/25/16 10/25/16 10/25/16 04:00 04:00 04:00 WBC 14.2 H RBC 2.98 L Hgb 9.0 L Hct 26.2 L MCV MCH MCHC RDW 16.6 H Plt Count Lymph % (Auto) [place] % (Auto) 10.7 H Lymph # [place] # 1.5 H Baso # Seg Neutrophils % 73.6 H Seg Neuts % (Manual) Lymphocytes % (Manual) Monocytes % (Manual) Eosinophils % (Manual) Basophils % (Manual) Nucleated RBC % Seg Neutrophils # 10.5 H Seg Neutrophils # Man Lymphocytes # (Manual) Monocytes # (Manual) Eosinophils # (Manual) Basophils # (Manual) PT INR Fibrinogen dRVVT Confirm Interp Factor V Activity POC ABG pH POC ABG pCO2 POC ABG pO2 ABG pO2 ABG HCO3 ABG Base Excess ABG Hemoglobin Oxyhemoglobin Sodium 132 L Potassium Chloride 94.7 L Carbon Dioxide BUN 51 H Creatinine 1.6 H Glucose 130 H POC Glucose Lactic Acid Calcium 8.3 L Phosphorus 1.60 L D Magnesium Direct Bilirubin AST ALT Alkaline Phosphatase Lactate Dehydrogenase Troponin T C-Reactive Protein Total Protein Albumin Prealbumin Triglycerides Cholesterol LDL Cholesterol Direct HDL Cholesterol Urine pH Urine WBC (Auto) Urine Creatinine Urine Total Protein Fluid Total Protein Vancomycin Trough Rheumatoid Factor Complement C4 Miscellaneous Test Crossmatch 10/25/16 10/25/16 10/25/16 04:32 11:48 17:22 WBC RBC Hgb Hct MCV MCH MCHC RDW Plt Count Lymph % (Auto) [place] % (Auto) Lymph # [place] # Baso # Seg Neutrophils % Seg Neuts % (Manual) Lymphocytes % (Manual) Monocytes % (Manual) Eosinophils % (Manual) Basophils % (Manual) Nucleated RBC % Seg Neutrophils # Seg Neutrophils # Man Lymphocytes # (Manual) Monocytes # (Manual) Eosinophils # (Manual) Basophils # (Manual) PT INR Fibrinogen dRVVT Confirm Interp Factor V Activity POC ABG pH POC ABG pCO2 POC ABG pO2 ABG pO2 ABG HCO3 ABG Base Excess ABG Hemoglobin Oxyhemoglobin Sodium Potassium Chloride Carbon Dioxide BUN Creatinine Glucose POC Glucose 124 H 171 H 120 H Lactic Acid Calcium Phosphorus Magnesium Direct Bilirubin AST ALT Alkaline Phosphatase Lactate Dehydrogenase Troponin T C-Reactive Protein Total Protein Albumin Prealbumin Triglycerides Cholesterol LDL Cholesterol Direct HDL Cholesterol Urine pH Urine WBC (Auto) Urine Creatinine Urine Total Protein Fluid Total Protein Vancomycin Trough Rheumatoid Factor Complement C4 Miscellaneous Test Crossmatch 10/26/16 10/26/16 10/26/16 04:54 07:06 07:06 WBC 16.9 H RBC 3.06 L Hgb 9.1 L Hct 26.9 L MCV MCH MCHC RDW 16.9 H Plt Count Lymph % (Auto) [place] % (Auto) Lymph # [place] # Baso # Seg Neutrophils % Seg Neuts % (Manual) 71.0 H Lymphocytes % (Manual) 5.0 L Monocytes % (Manual) 12.0 H Eosinophils % (Manual) Basophils % (Manual) Nucleated RBC % Seg Neutrophils # Seg Neutrophils # Man 12.0 H Lymphocytes # (Manual) 0.8 L Monocytes # (Manual) 2.0 H Eosinophils # (Manual) Basophils # (Manual) PT INR Fibrinogen dRVVT Confirm Interp Factor V Activity POC ABG pH POC ABG pCO2 POC ABG pO2 ABG pO2 ABG HCO3 ABG Base Excess ABG Hemoglobin Oxyhemoglobin Sodium 135 L Potassium Chloride 97.1 L Carbon Dioxide BUN 73 H Creatinine 2.2 H Glucose 117 H POC Glucose 123 H Lactic Acid Calcium Phosphorus 1.70 L Magnesium Direct Bilirubin AST ALT Alkaline Phosphatase Lactate Dehydrogenase Troponin T C-Reactive Protein Total Protein Albumin Prealbumin Triglycerides Cholesterol LDL Cholesterol Direct HDL Cholesterol Urine pH Urine WBC (Auto) Urine Creatinine Urine Total Protein Fluid Total Protein Vancomycin Trough Rheumatoid Factor Complement C4 Miscellaneous Test Crossmatch 10/26/16 10/26/16 10/26/16 12:12 17:29 23:42 WBC RBC Hgb Hct MCV MCH MCHC RDW Plt Count Lymph % (Auto) [place] % (Auto) Lymph # [place] # Baso # Seg Neutrophils % Seg Neuts % (Manual) Lymphocytes % (Manual) Monocytes % (Manual) Eosinophils % (Manual) Basophils % (Manual) Nucleated RBC % Seg Neutrophils # Seg Neutrophils # Man Lymphocytes # (Manual) Monocytes # (Manual) Eosinophils # (Manual) Basophils # (Manual) PT INR Fibrinogen dRVVT Confirm Interp Factor V Activity POC ABG pH POC ABG pCO2 POC ABG pO2 ABG pO2 ABG HCO3 ABG Base Excess ABG Hemoglobin Oxyhemoglobin Sodium Potassium Chloride Carbon Dioxide BUN Creatinine Glucose POC Glucose 126 H 161 H 118 H Lactic Acid Calcium Phosphorus Magnesium Direct Bilirubin AST ALT Alkaline Phosphatase Lactate Dehydrogenase Troponin T C-Reactive Protein Total Protein Albumin Prealbumin Triglycerides Cholesterol LDL Cholesterol Direct HDL Cholesterol Urine pH Urine WBC (Auto) Urine Creatinine Urine Total Protein Fluid Total Protein Vancomycin Trough Rheumatoid Factor Complement C4 Miscellaneous Test Crossmatch 10/27/16 10/27/16 10/27/16 05:03 06:30 06:30 WBC 13.9 H RBC 3.09 L Hgb 9.2 L Hct 27.5 L MCV MCH MCHC RDW 17.0 H Plt Count Lymph % (Auto) [place] % (Auto) Lymph # [place] # Baso # Seg Neutrophils % Seg Neuts % (Manual) 78.0 H Lymphocytes % (Manual) Monocytes % (Manual) Eosinophils % (Manual) Basophils % (Manual) Nucleated RBC % 2.0 H Seg Neutrophils # Seg Neutrophils # Man 10.8 H Lymphocytes # (Manual) Monocytes # (Manual) 1.0 H Eosinophils # (Manual) Basophils # (Manual) PT INR Fibrinogen dRVVT Confirm Interp Factor V Activity POC ABG pH POC ABG pCO2 POC ABG pO2 ABG pO2 ABG HCO3 ABG Base Excess ABG Hemoglobin Oxyhemoglobin Sodium Potassium Chloride Carbon Dioxide BUN 40 H Creatinine 1.5 H Glucose 135 H POC Glucose 107 H Lactic Acid Calcium 8.3 L Phosphorus 1.30 L D Magnesium Direct Bilirubin AST ALT Alkaline Phosphatase Lactate Dehydrogenase Troponin T C-Reactive Protein Total Protein Albumin Prealbumin Triglycerides Cholesterol LDL Cholesterol Direct HDL Cholesterol Urine pH Urine WBC (Auto) Urine Creatinine Urine Total Protein Fluid Total Protein Vancomycin Trough Rheumatoid Factor Complement C4 Miscellaneous Test Crossmatch 10/27/16 10/27/16 10/27/16 13:27 18:07 23:40 WBC RBC Hgb Hct MCV MCH MCHC RDW Plt Count Lymph % (Auto) [place] % (Auto) Lymph # [place] # Baso # Seg Neutrophils % Seg Neuts % (Manual) Lymphocytes % (Manual) Monocytes % (Manual) Eosinophils % (Manual) Basophils % (Manual) Nucleated RBC % Seg Neutrophils # Seg Neutrophils # Man Lymphocytes # (Manual) Monocytes # (Manual) Eosinophils # (Manual) Basophils # (Manual) PT INR Fibrinogen dRVVT Confirm Interp Factor V Activity POC ABG pH POC ABG pCO2 POC ABG pO2 ABG pO2 ABG HCO3 ABG Base Excess ABG Hemoglobin Oxyhemoglobin Sodium Potassium Chloride Carbon Dioxide BUN Creatinine Glucose POC Glucose 117 H 121 H 118 H Lactic Acid Calcium Phosphorus Magnesium Direct Bilirubin AST ALT Alkaline Phosphatase Lactate Dehydrogenase Troponin T C-Reactive Protein Total Protein Albumin Prealbumin Triglycerides Cholesterol LDL Cholesterol Direct HDL Cholesterol Urine pH Urine WBC (Auto) Urine Creatinine Urine Total Protein Fluid Total Protein Vancomycin Trough Rheumatoid Factor Complement C4 Miscellaneous Test Crossmatch 10/28/16 10/28/16 10/28/16 05:48 06:45 06:45 WBC 14.7 H RBC 3.05 L Hgb 9.0 L Hct 26.9 L MCV MCH MCHC RDW 16.8 H Plt Count Lymph % (Auto) 8.2 L [place] % (Auto) 8.4 H Lymph # [place] # 1.2 H Baso # Seg Neutrophils % 81.9 H Seg Neuts % (Manual) Lymphocytes % (Manual) Monocytes % (Manual) Eosinophils % (Manual) Basophils % (Manual) Nucleated RBC % Seg Neutrophils # 12.1 H Seg Neutrophils # Man Lymphocytes # (Manual) Monocytes # (Manual) Eosinophils # (Manual) Basophils # (Manual) PT INR Fibrinogen dRVVT Confirm Interp Factor V Activity POC ABG pH POC ABG pCO2 POC ABG pO2 ABG pO2 ABG HCO3 ABG Base Excess ABG Hemoglobin Oxyhemoglobin Sodium Potassium Chloride Carbon Dioxide BUN 60 H Creatinine 1.9 H Glucose 120 H POC Glucose 114 H Lactic Acid Calcium Phosphorus Magnesium Direct Bilirubin AST ALT Alkaline Phosphatase Lactate Dehydrogenase Troponin T C-Reactive Protein Total Protein Albumin Prealbumin Triglycerides Cholesterol LDL Cholesterol Direct HDL Cholesterol Urine pH Urine WBC (Auto) Urine Creatinine Urine Total Protein Fluid Total Protein Vancomycin Trough Rheumatoid Factor Complement C4 Miscellaneous Test Crossmatch 10/28/16 10/28/16 10/29/16 17:08 23:50 05:10 WBC RBC Hgb Hct MCV MCH MCHC RDW Plt Count Lymph % (Auto) [place] % (Auto) Lymph # [place] # Baso # Seg Neutrophils % Seg Neuts % (Manual) Lymphocytes % (Manual) Monocytes % (Manual) Eosinophils % (Manual) Basophils % (Manual) Nucleated RBC % Seg Neutrophils # Seg Neutrophils # Man Lymphocytes # (Manual) Monocytes # (Manual) Eosinophils # (Manual) Basophils # (Manual) PT INR Fibrinogen dRVVT Confirm Interp Factor V Activity POC ABG pH POC ABG pCO2 POC ABG pO2 ABG pO2 ABG HCO3 ABG Base Excess ABG Hemoglobin Oxyhemoglobin Sodium Potassium Chloride Carbon Dioxide BUN Creatinine Glucose POC Glucose 109 H 110 H 124 H Lactic Acid Calcium Phosphorus Magnesium Direct Bilirubin AST ALT Alkaline Phosphatase Lactate Dehydrogenase Troponin T C-Reactive Protein Total Protein Albumin Prealbumin Triglycerides Cholesterol LDL Cholesterol Direct HDL Cholesterol Urine pH Urine WBC (Auto) Urine Creatinine Urine Total Protein Fluid Total Protein Vancomycin Trough Rheumatoid Factor Complement C4 Miscellaneous Test Crossmatch 10/29/16 10/29/16 10/29/16 07:45 07:45 12:19 WBC 14.7 H RBC 3.15 L Hgb 9.3 L Hct 28.9 L MCV MCH MCHC RDW 17.0 H Plt Count Lymph % (Auto) 11.9 L [place] % (Auto) 8.6 H Lymph # [place] # 1.3 H Baso # Seg Neutrophils % 78.1 H Seg Neuts % (Manual) Lymphocytes % (Manual) Monocytes % (Manual) Eosinophils % (Manual) Basophils % (Manual) Nucleated RBC % Seg Neutrophils # 11.4 H Seg Neutrophils # Man Lymphocytes # (Manual) Monocytes # (Manual) Eosinophils # (Manual) Basophils # (Manual) PT INR Fibrinogen dRVVT Confirm Interp Factor V Activity POC ABG pH POC ABG pCO2 POC ABG pO2 ABG pO2 ABG HCO3 ABG Base Excess ABG Hemoglobin Oxyhemoglobin Sodium Potassium 5.1 H Chloride Carbon Dioxide 19 L BUN 78 H Creatinine 2.2 H Glucose 116 H POC Glucose 118 H Lactic Acid Calcium Phosphorus Magnesium Direct Bilirubin AST ALT Alkaline Phosphatase Lactate Dehydrogenase Troponin T C-Reactive Protein Total Protein Albumin Prealbumin Triglycerides Cholesterol LDL Cholesterol Direct HDL Cholesterol Urine pH Urine WBC (Auto) Urine Creatinine Urine Total Protein Fluid Total Protein Vancomycin Trough Rheumatoid Factor Complement C4 Miscellaneous Test Crossmatch 10/29/16 10/30/16 10/30/16 17:49 01:52 03:28 WBC RBC Hgb Hct MCV MCH MCHC RDW Plt Count Lymph % (Auto) [place] % (Auto) Lymph # [place] # Baso # Seg Neutrophils % Seg Neuts % (Manual) Lymphocytes % (Manual) Monocytes % (Manual) Eosinophils % (Manual) Basophils % (Manual) Nucleated RBC % Seg Neutrophils # Seg Neutrophils # Man Lymphocytes # (Manual) Monocytes # (Manual) Eosinophils # (Manual) Basophils # (Manual) PT INR Fibrinogen dRVVT Confirm Interp Factor V Activity POC ABG pH POC ABG pCO2 POC ABG pO2 ABG pO2 ABG HCO3 ABG Base Excess ABG Hemoglobin Oxyhemoglobin Sodium Potassium 5.4 H Chloride 97.5 L Carbon Dioxide 19 L BUN 90 H Creatinine 2.5 H Glucose POC Glucose 120 H 129 H Lactic Acid Calcium Phosphorus 5.20 H Magnesium Direct Bilirubin AST ALT Alkaline Phosphatase Lactate Dehydrogenase Troponin T C-Reactive Protein Total Protein Albumin Prealbumin Triglycerides Cholesterol LDL Cholesterol Direct HDL Cholesterol Urine pH Urine WBC (Auto) Urine Creatinine Urine Total Protein Fluid Total Protein Vancomycin Trough Rheumatoid Factor Complement C4 Miscellaneous Test Crossmatch 10/30/16 10/30/16 10/30/16 03:28 08:19 08:19 WBC 11.6 H 15.9 H RBC 2.75 L 2.82 L Hgb 7.9 L 8.3 L Hct 24.2 L 25.2 L MCV MCH MCHC RDW 16.7 H 17.2 H Plt Count Lymph % (Auto) [place] % (Auto) 9.8 H Lymph # [place] # 1.1 H Baso # Seg Neutrophils % 74.2 H Seg Neuts % (Manual) Lymphocytes % (Manual) Monocytes % (Manual) Eosinophils % (Manual) Basophils % (Manual) Nucleated RBC % Seg Neutrophils # 8.6 H Seg Neutrophils # Man Lymphocytes # (Manual) Monocytes # (Manual) Eosinophils # (Manual) Basophils # (Manual) PT INR Fibrinogen dRVVT Confirm Interp Factor V Activity POC ABG pH POC ABG pCO2 POC ABG pO2 ABG pO2 ABG HCO3 ABG Base Excess ABG Hemoglobin Oxyhemoglobin Sodium Potassium 5.3 H Chloride 97.4 L Carbon Dioxide 19 L BUN 93 H Creatinine 2.6 H Glucose POC Glucose Lactic Acid Calcium Phosphorus Magnesium Direct Bilirubin AST ALT Alkaline Phosphatase Lactate Dehydrogenase Troponin T C-Reactive Protein Total Protein Albumin Prealbumin Triglycerides Cholesterol LDL Cholesterol Direct HDL Cholesterol Urine pH Urine WBC (Auto) Urine Creatinine Urine Total Protein Fluid Total Protein Vancomycin Trough Rheumatoid Factor Complement C4 Miscellaneous Test Crossmatch 10/30/16 10/30/16 10/31/16 17:11 23:56 00:40 WBC RBC Hgb Hct MCV MCH MCHC RDW Plt Count Lymph % (Auto) [place] % (Auto) Lymph # [place] # Baso # Seg Neutrophils % Seg Neuts % (Manual) Lymphocytes % (Manual) Monocytes % (Manual) Eosinophils % (Manual) Basophils % (Manual) Nucleated RBC % Seg Neutrophils # Seg Neutrophils # Man Lymphocytes # (Manual) Monocytes # (Manual) Eosinophils # (Manual) Basophils # (Manual) PT INR Fibrinogen dRVVT Confirm Interp Factor V Activity POC ABG pH POC ABG pCO2 POC ABG pO2 ABG pO2 ABG HCO3 ABG Base Excess ABG Hemoglobin Oxyhemoglobin Sodium Potassium Chloride Carbon Dioxide BUN Creatinine Glucose POC Glucose 106 H 117 H 120 H Lactic Acid Calcium Phosphorus Magnesium Direct Bilirubin AST ALT Alkaline Phosphatase Lactate Dehydrogenase Troponin T C-Reactive Protein Total Protein Albumin Prealbumin Triglycerides Cholesterol LDL Cholesterol Direct HDL Cholesterol Urine pH Urine WBC (Auto) Urine Creatinine Urine Total Protein Fluid Total Protein Vancomycin Trough Rheumatoid Factor Complement C4 Miscellaneous Test Crossmatch 10/31/16 10/31/16 10/31/16 05:43 07:15 07:15 WBC 12.1 H RBC 2.63 L Hgb 7.7 L Hct 23.3 L MCV MCH MCHC RDW 16.7 H Plt Count Lymph % (Auto) 11.7 L [place] % (Auto) 7.7 H Lymph # [place] # 0.9 H Baso # Seg Neutrophils % 78.0 H Seg Neuts % (Manual) Lymphocytes % (Manual) Monocytes % (Manual) Eosinophils % (Manual) Basophils % (Manual) Nucleated RBC % Seg Neutrophils # 9.4 H Seg Neutrophils # Man Lymphocytes # (Manual) Monocytes # (Manual) Eosinophils # (Manual) Basophils # (Manual) PT INR Fibrinogen dRVVT Confirm Interp Factor V Activity POC ABG pH POC ABG pCO2 POC ABG pO2 ABG pO2 ABG HCO3 ABG Base Excess ABG Hemoglobin Oxyhemoglobin Sodium Potassium Chloride 96.4 L Carbon Dioxide 21 L BUN 99 H Creatinine 2.6 H Glucose 144 H POC Glucose 125 H Lactic Acid Calcium Phosphorus 4.80 H Magnesium Direct Bilirubin AST ALT Alkaline Phosphatase Lactate Dehydrogenase Troponin T C-Reactive Protein Total Protein Albumin Prealbumin Triglycerides Cholesterol LDL Cholesterol Direct HDL Cholesterol Urine pH Urine WBC (Auto) Urine Creatinine Urine Total Protein Fluid Total Protein Vancomycin Trough Rheumatoid Factor Complement C4 Miscellaneous Test Crossmatch 10/31/16 10/31/16 11/01/16 11:46 18:34 00:20 WBC RBC Hgb Hct MCV MCH MCHC RDW Plt Count Lymph % (Auto) [place] % (Auto) Lymph # [place] # Baso # Seg Neutrophils % Seg Neuts % (Manual) Lymphocytes % (Manual) Monocytes % (Manual) Eosinophils % (Manual) Basophils % (Manual) Nucleated RBC % Seg Neutrophils # Seg Neutrophils # Man Lymphocytes # (Manual) Monocytes # (Manual) Eosinophils # (Manual) Basophils # (Manual) PT INR Fibrinogen dRVVT Confirm Interp Factor V Activity POC ABG pH POC ABG pCO2 POC ABG pO2 ABG pO2 ABG HCO3 ABG Base Excess ABG Hemoglobin Oxyhemoglobin Sodium Potassium Chloride Carbon Dioxide BUN Creatinine Glucose POC Glucose 159 H 140 H 132 H Lactic Acid Calcium Phosphorus Magnesium Direct Bilirubin AST ALT Alkaline Phosphatase Lactate Dehydrogenase Troponin T C-Reactive Protein Total Protein Albumin Prealbumin Triglycerides Cholesterol LDL Cholesterol Direct HDL Cholesterol Urine pH Urine WBC (Auto) Urine Creatinine Urine Total Protein Fluid Total Protein Vancomycin Trough Rheumatoid Factor Complement C4 Miscellaneous Test Crossmatch 11/01/16 11/01/16 11/01/16 04:55 04:55 06:11 WBC 11.2 H RBC 2.68 L Hgb 7.5 L Hct 23.7 L MCV MCH MCHC RDW 16.1 H Plt Count Lymph % (Auto) [place] % (Auto) 9.8 H Lymph # [place] # 1.1 H Baso # Seg Neutrophils % 70.8 H Seg Neuts % (Manual) Lymphocytes % (Manual) Monocytes % (Manual) Eosinophils % (Manual) Basophils % (Manual) Nucleated RBC % Seg Neutrophils # 7.9 H Seg Neutrophils # Man Lymphocytes # (Manual) Monocytes # (Manual) Eosinophils # (Manual) Basophils # (Manual) PT INR Fibrinogen dRVVT Confirm Interp Factor V Activity POC ABG pH POC ABG pCO2 POC ABG pO2 ABG pO2 ABG HCO3 ABG Base Excess ABG Hemoglobin Oxyhemoglobin Sodium Potassium 3.3 L D Chloride Carbon Dioxide BUN 61 H Creatinine 1.9 H Glucose 114 H POC Glucose 115 H Lactic Acid Calcium Phosphorus 1.80 L D Magnesium Direct Bilirubin AST ALT Alkaline Phosphatase Lactate Dehydrogenase Troponin T C-Reactive Protein Total Protein Albumin Prealbumin Triglycerides Cholesterol LDL Cholesterol Direct HDL Cholesterol Urine pH Urine WBC (Auto) Urine Creatinine Urine Total Protein Fluid Total Protein Vancomycin Trough Rheumatoid Factor Complement C4 Miscellaneous Test Crossmatch 11/01/16 11/01/16 11/01/16 12:29 18:23 23:58 WBC RBC Hgb Hct MCV MCH MCHC RDW Plt Count Lymph % (Auto) [place] % (Auto) Lymph # [place] # Baso # Seg Neutrophils % Seg Neuts % (Manual) Lymphocytes % (Manual) Monocytes % (Manual) Eosinophils % (Manual) Basophils % (Manual) Nucleated RBC % Seg Neutrophils # Seg Neutrophils # Man Lymphocytes # (Manual) Monocytes # (Manual) Eosinophils # (Manual) Basophils # (Manual) PT INR Fibrinogen dRVVT Confirm Interp Factor V Activity POC ABG pH POC ABG pCO2 POC ABG pO2 ABG pO2 ABG HCO3 ABG Base Excess ABG Hemoglobin Oxyhemoglobin Sodium Potassium Chloride Carbon Dioxide BUN Creatinine Glucose POC Glucose 142 H 143 H 128 H Lactic Acid Calcium Phosphorus Magnesium Direct Bilirubin AST ALT Alkaline Phosphatase Lactate Dehydrogenase Troponin T C-Reactive Protein Total Protein Albumin Prealbumin Triglycerides Cholesterol LDL Cholesterol Direct HDL Cholesterol Urine pH Urine WBC (Auto) Urine Creatinine Urine Total Protein Fluid Total Protein Vancomycin Trough Rheumatoid Factor Complement C4 Miscellaneous Test Crossmatch 11/02/16 11/02/16 11/02/16 04:16 05:29 11:58 WBC RBC Hgb Hct MCV MCH MCHC RDW Plt Count Lymph % (Auto) [place] % (Auto) Lymph # [place] # Baso # Seg Neutrophils % Seg Neuts % (Manual) Lymphocytes % (Manual) Monocytes % (Manual) Eosinophils % (Manual) Basophils % (Manual) Nucleated RBC % Seg Neutrophils # Seg Neutrophils # Man Lymphocytes # (Manual) Monocytes # (Manual) Eosinophils # (Manual) Basophils # (Manual) PT INR Fibrinogen dRVVT Confirm Interp Factor V Activity POC ABG pH POC ABG pCO2 POC ABG pO2 ABG pO2 ABG HCO3 ABG Base Excess ABG Hemoglobin Oxyhemoglobin Sodium Potassium 3.1 L Chloride Carbon Dioxide BUN 73 H Creatinine 2.3 H Glucose 112 H POC Glucose 135 H 149 H Lactic Acid Calcium Phosphorus Magnesium Direct Bilirubin AST ALT Alkaline Phosphatase Lactate Dehydrogenase Troponin T C-Reactive Protein Total Protein Albumin Prealbumin Triglycerides Cholesterol LDL Cholesterol Direct HDL Cholesterol Urine pH Urine WBC (Auto) Urine Creatinine Urine Total Protein Fluid Total Protein Vancomycin Trough Rheumatoid Factor Complement C4 Miscellaneous Test Crossmatch 11/02/16 11/02/16 11/03/16 17:42 22:54 06:00 WBC RBC Hgb Hct MCV MCH MCHC RDW Plt Count Lymph % (Auto) [place] % (Auto) Lymph # [place] # Baso # Seg Neutrophils % Seg Neuts % (Manual) Lymphocytes % (Manual) Monocytes % (Manual) Eosinophils % (Manual) Basophils % (Manual) Nucleated RBC % Seg Neutrophils # Seg Neutrophils # Man Lymphocytes # (Manual) Monocytes # (Manual) Eosinophils # (Manual) Basophils # (Manual) PT INR Fibrinogen dRVVT Confirm Interp Factor V Activity POC ABG pH POC ABG pCO2 POC ABG pO2 ABG pO2 ABG HCO3 ABG Base Excess ABG Hemoglobin Oxyhemoglobin Sodium Potassium Chloride 96.7 L Carbon Dioxide BUN 41 H Creatinine 1.5 H Glucose 145 H POC Glucose 182 H 115 H Lactic Acid Calcium Phosphorus 1.60 L D Magnesium 1.50 L Direct Bilirubin AST ALT Alkaline Phosphatase Lactate Dehydrogenase Troponin T C-Reactive Protein Total Protein Albumin Prealbumin Triglycerides Cholesterol LDL Cholesterol Direct HDL Cholesterol Urine pH Urine WBC (Auto) Urine Creatinine Urine Total Protein Fluid Total Protein Vancomycin Trough Rheumatoid Factor Complement C4 Miscellaneous Test Crossmatch 11/03/16 11/03/16 11/03/16 11:53 17:45 23:37 WBC RBC Hgb Hct MCV MCH MCHC RDW Plt Count Lymph % (Auto) [place] % (Auto) Lymph # [place] # Baso # Seg Neutrophils % Seg Neuts % (Manual) Lymphocytes % (Manual) Monocytes % (Manual) Eosinophils % (Manual) Basophils % (Manual) Nucleated RBC % Seg Neutrophils # Seg Neutrophils # Man Lymphocytes # (Manual) Monocytes # (Manual) Eosinophils # (Manual) Basophils # (Manual) PT INR Fibrinogen dRVVT Confirm Interp Factor V Activity POC ABG pH POC ABG pCO2 POC ABG pO2 ABG pO2 ABG HCO3 ABG Base Excess ABG Hemoglobin Oxyhemoglobin Sodium Potassium Chloride Carbon Dioxide BUN Creatinine Glucose POC Glucose 131 H 134 H 113 H Lactic Acid Calcium Phosphorus Magnesium Direct Bilirubin AST ALT Alkaline Phosphatase Lactate Dehydrogenase Troponin T C-Reactive Protein Total Protein Albumin Prealbumin Triglycerides Cholesterol LDL Cholesterol Direct HDL Cholesterol Urine pH Urine WBC (Auto) Urine Creatinine Urine Total Protein Fluid Total Protein Vancomycin Trough Rheumatoid Factor Complement C4 Miscellaneous Test Crossmatch 11/04/16 11/04/16 11/04/16 05:41 06:00 12:10 WBC RBC Hgb Hct MCV MCH MCHC RDW Plt Count Lymph % (Auto) [place] % (Auto) Lymph # [place] # Baso # Seg Neutrophils % Seg Neuts % (Manual) Lymphocytes % (Manual) Monocytes % (Manual) Eosinophils % (Manual) Basophils % (Manual) Nucleated RBC % Seg Neutrophils # Seg Neutrophils # Man Lymphocytes # (Manual) Monocytes # (Manual) Eosinophils # (Manual) Basophils # (Manual) PT INR Fibrinogen dRVVT Confirm Interp Factor V Activity POC ABG pH POC ABG pCO2 POC ABG pO2 ABG pO2 ABG HCO3 ABG Base Excess ABG Hemoglobin Oxyhemoglobin Sodium Potassium Chloride 96.7 L Carbon Dioxide BUN 52 H Creatinine 1.9 H Glucose 126 H POC Glucose 137 H 191 H Lactic Acid Calcium Phosphorus Magnesium Direct Bilirubin AST ALT Alkaline Phosphatase Lactate Dehydrogenase Troponin T C-Reactive Protein Total Protein Albumin Prealbumin Triglycerides Cholesterol LDL Cholesterol Direct HDL Cholesterol Urine pH Urine WBC (Auto) Urine Creatinine Urine Total Protein Fluid Total Protein Vancomycin Trough Rheumatoid Factor Complement C4 Miscellaneous Test Crossmatch 11/04/16 11/05/16 11/05/16 22:57 03:10 05:10 WBC RBC Hgb Hct MCV MCH MCHC RDW Plt Count Lymph % (Auto) [place] % (Auto) Lymph # [place] # Baso # Seg Neutrophils % Seg Neuts % (Manual) Lymphocytes % (Manual) Monocytes % (Manual) Eosinophils % (Manual) Basophils % (Manual) Nucleated RBC % Seg Neutrophils # Seg Neutrophils # Man Lymphocytes # (Manual) Monocytes # (Manual) Eosinophils # (Manual) Basophils # (Manual) PT INR Fibrinogen dRVVT Confirm Interp Factor V Activity POC ABG pH POC ABG pCO2 POC ABG pO2 ABG pO2 ABG HCO3 ABG Base Excess ABG Hemoglobin Oxyhemoglobin Sodium 136 L Potassium Chloride 97.2 L Carbon Dioxide BUN 32 H Creatinine 1.3 H Glucose 123 H POC Glucose 125 H 108 H Lactic Acid Calcium 7.8 L Phosphorus Magnesium Direct Bilirubin AST ALT Alkaline Phosphatase Lactate Dehydrogenase Troponin T C-Reactive Protein Total Protein Albumin Prealbumin Triglycerides Cholesterol LDL Cholesterol Direct HDL Cholesterol Urine pH Urine WBC (Auto) Urine Creatinine Urine Total Protein Fluid Total Protein Vancomycin Trough Rheumatoid Factor Complement C4 Miscellaneous Test Crossmatch 11/05/16 11/05/16 11/05/16 12:23 13:09 13:25 WBC RBC Hgb Hct MCV MCH MCHC RDW Plt Count Lymph % (Auto) [place] % (Auto) Lymph # [place] # Baso # Seg Neutrophils % Seg Neuts % (Manual) Lymphocytes % (Manual) Monocytes % (Manual) Eosinophils % (Manual) Basophils % (Manual) Nucleated RBC % Seg Neutrophils # Seg Neutrophils # Man Lymphocytes # (Manual) Monocytes # (Manual) Eosinophils # (Manual) Basophils # (Manual) PT INR Fibrinogen dRVVT Confirm Interp Factor V Activity POC ABG pH POC ABG pCO2 POC ABG pO2 ABG pO2 ABG HCO3 ABG Base Excess ABG Hemoglobin Oxyhemoglobin Sodium Potassium Chloride Carbon Dioxide BUN Creatinine Glucose POC Glucose 124 H Lactic Acid Calcium Phosphorus Magnesium Direct Bilirubin AST ALT Alkaline Phosphatase Lactate Dehydrogenase Troponin T C-Reactive Protein 11.40 H Total Protein Albumin Prealbumin Triglycerides Cholesterol LDL Cholesterol Direct HDL Cholesterol Urine pH 9.0 H Urine WBC (Auto) Urine Creatinine Urine Total Protein Fluid Total Protein Vancomycin Trough Rheumatoid Factor Complement C4 Miscellaneous Test Crossmatch 11/05/16 11/05/16 11/05/16 13:25 17:54 23:42 WBC RBC Hgb Hct MCV MCH MCHC RDW Plt Count Lymph % (Auto) [place] % (Auto) Lymph # [place] # Baso # Seg Neutrophils % Seg Neuts % (Manual) Lymphocytes % (Manual) Monocytes % (Manual) Eosinophils % (Manual) Basophils % (Manual) Nucleated RBC % Seg Neutrophils # Seg Neutrophils # Man Lymphocytes # (Manual) Monocytes # (Manual) Eosinophils # (Manual) Basophils # (Manual) PT INR Fibrinogen dRVVT Confirm Interp Factor V Activity POC ABG pH POC ABG pCO2 POC ABG pO2 ABG pO2 ABG HCO3 ABG Base Excess ABG Hemoglobin Oxyhemoglobin Sodium Potassium Chloride Carbon Dioxide BUN Creatinine Glucose POC Glucose 114 H 134 H Lactic Acid Calcium Phosphorus Magnesium Direct Bilirubin AST ALT Alkaline Phosphatase Lactate Dehydrogenase Troponin T C-Reactive Protein Total Protein Albumin Prealbumin Triglycerides Cholesterol LDL Cholesterol Direct HDL Cholesterol Urine pH Urine WBC (Auto) Urine Creatinine Urine Total Protein Fluid Total Protein Vancomycin Trough Rheumatoid Factor Complement C4 Miscellaneous Test Flexitest 1 H Crossmatch 11/06/16 11/06/16 11/06/16 04:56 06:25 06:25 WBC RBC 2.50 L Hgb 7.3 L Hct 22.5 L MCV MCH MCHC RDW 16.9 H Plt Count Lymph % (Auto) [place] % (Auto) 10.5 H Lymph # [place] # 1.1 H Baso # Seg Neutrophils % Seg Neuts % (Manual) Lymphocytes % (Manual) Monocytes % (Manual) Eosinophils % (Manual) Basophils % (Manual) Nucleated RBC % Seg Neutrophils # Seg Neutrophils # Man Lymphocytes # (Manual) Monocytes # (Manual) Eosinophils # (Manual) Basophils # (Manual) PT INR Fibrinogen dRVVT Confirm Interp Factor V Activity POC ABG pH POC ABG pCO2 POC ABG pO2 ABG pO2 ABG HCO3 ABG Base Excess ABG Hemoglobin Oxyhemoglobin Sodium Potassium 5.1 H Chloride 95.9 L Carbon Dioxide BUN 52 H Creatinine 1.8 H Glucose 117 H POC Glucose 120 H Lactic Acid Calcium Phosphorus Magnesium Direct Bilirubin AST 103 H ALT 77 H Alkaline Phosphatase 285 H Lactate Dehydrogenase Troponin T C-Reactive Protein Total Protein 6.2 L Albumin 1.8 L Prealbumin 0.180 L Triglycerides Cholesterol LDL Cholesterol Direct HDL Cholesterol Urine pH Urine WBC (Auto) Urine Creatinine Urine Total Protein Fluid Total Protein Vancomycin Trough Rheumatoid Factor Complement C4 Miscellaneous Test Crossmatch 11/06/16 11/06/16 11/06/16 11:56 17:14 23:52 WBC RBC Hgb Hct MCV MCH MCHC RDW Plt Count Lymph % (Auto) [place] % (Auto) Lymph # [place] # Baso # Seg Neutrophils % Seg Neuts % (Manual) Lymphocytes % (Manual) Monocytes % (Manual) Eosinophils % (Manual) Basophils % (Manual) Nucleated RBC % Seg Neutrophils # Seg Neutrophils # Man Lymphocytes # (Manual) Monocytes # (Manual) Eosinophils # (Manual) Basophils # (Manual) PT INR Fibrinogen dRVVT Confirm Interp Factor V Activity POC ABG pH POC ABG pCO2 POC ABG pO2 ABG pO2 ABG HCO3 ABG Base Excess ABG Hemoglobin Oxyhemoglobin Sodium Potassium Chloride Carbon Dioxide BUN Creatinine Glucose POC Glucose 141 H 125 H 130 H Lactic Acid Calcium Phosphorus Magnesium Direct Bilirubin AST ALT Alkaline Phosphatase Lactate Dehydrogenase Troponin T C-Reactive Protein Total Protein Albumin Prealbumin Triglycerides Cholesterol LDL Cholesterol Direct HDL Cholesterol Urine pH Urine WBC (Auto) Urine Creatinine Urine Total Protein Fluid Total Protein Vancomycin Trough Rheumatoid Factor Complement C4 Miscellaneous Test Crossmatch 11/07/16 11/07/16 11/07/16 06:30 06:30 09:37 WBC RBC 2.18 L Hgb 6.3 L Hct 19.7 L* MCV MCH MCHC RDW 16.8 H Plt Count Lymph % (Auto) [place] % (Auto) 10.0 H Lymph # [place] # 1.0 H Baso # Seg Neutrophils % Seg Neuts % (Manual) Lymphocytes % (Manual) Monocytes % (Manual) Eosinophils % (Manual) Basophils % (Manual) Nucleated RBC % Seg Neutrophils # Seg Neutrophils # Man Lymphocytes # (Manual) Monocytes # (Manual) Eosinophils # (Manual) Basophils # (Manual) PT INR Fibrinogen dRVVT Confirm Interp Factor V Activity POC ABG pH POC ABG pCO2 POC ABG pO2 ABG pO2 ABG HCO3 ABG Base Excess ABG Hemoglobin Oxyhemoglobin Sodium 135 L Potassium Chloride 95.6 L Carbon Dioxide BUN 70 H Creatinine 2.0 H Glucose 126 H POC Glucose Lactic Acid Calcium Phosphorus Magnesium Direct Bilirubin AST ALT Alkaline Phosphatase Lactate Dehydrogenase Troponin T C-Reactive Protein Total Protein Albumin Prealbumin Triglycerides Cholesterol LDL Cholesterol Direct HDL Cholesterol Urine pH Urine WBC (Auto) Urine Creatinine Urine Total Protein Fluid Total Protein Vancomycin Trough Rheumatoid Factor Complement C4 Miscellaneous Test Crossmatch See Detail 11/07/16 11/07/16 11/07/16 12:52 18:51 21:26 WBC RBC Hgb Hct MCV MCH MCHC RDW Plt Count Lymph % (Auto) [place] % (Auto) Lymph # [place] # Baso # Seg Neutrophils % Seg Neuts % (Manual) Lymphocytes % (Manual) Monocytes % (Manual) Eosinophils % (Manual) Basophils % (Manual) Nucleated RBC % Seg Neutrophils # Seg Neutrophils # Man Lymphocytes # (Manual) Monocytes # (Manual) Eosinophils # (Manual) Basophils # (Manual) PT INR Fibrinogen dRVVT Confirm Interp Factor V Activity POC ABG pH 7.523 H POC ABG pCO2 34.6 L POC ABG pO2 53 L ABG pO2 ABG HCO3 ABG Base Excess ABG Hemoglobin Oxyhemoglobin Sodium Potassium Chloride Carbon Dioxide BUN Creatinine Glucose POC Glucose 142 H 155 H Lactic Acid Calcium Phosphorus Magnesium Direct Bilirubin AST ALT Alkaline Phosphatase Lactate Dehydrogenase Troponin T C-Reactive Protein Total Protein Albumin Prealbumin Triglycerides Cholesterol LDL Cholesterol Direct HDL Cholesterol Urine pH Urine WBC (Auto) Urine Creatinine Urine Total Protein Fluid Total Protein Vancomycin Trough Rheumatoid Factor Complement C4 Miscellaneous Test Crossmatch 11/07/16 11/08/1611/08/17 21:34 13:03 23:37 WBC RBC 2.63 L Hgb 7.7 L Hct 22.7 L MCV MCH MCHC RDW 17.0 H Plt Count Lymph % (Auto) [place] % (Auto) Lymph # [place] # Baso # Seg Neutrophils % Seg Neuts % (Manual) Lymphocytes % (Manual) Monocytes % (Manual) Eosinophils % (Manual) Basophils % (Manual) Nucleated RBC % Seg Neutrophils # Seg Neutrophils # Man Lymphocytes # (Manual) Monocytes # (Manual) Eosinophils # (Manual) Basophils # (Manual) PT INR Fibrinogen dRVVT Confirm Interp Factor V Activity POC ABG pH 7.478 H POC ABG pCO2 34.0 L POC ABG pO2 50 L ABG pO2 ABG HCO3 ABG Base Excess ABG Hemoglobin Oxyhemoglobin Sodium Potassium Chloride Carbon Dioxide BUN Creatinine Glucose POC Glucose 113 H Lactic Acid Calcium Phosphorus Magnesium Direct Bilirubin AST ALT Alkaline Phosphatase Lactate Dehydrogenase Troponin T C-Reactive Protein Total Protein Albumin Prealbumin Triglycerides Cholesterol LDL Cholesterol Direct HDL Cholesterol Urine pH Urine WBC (Auto) Urine Creatinine Urine Total Protein Fluid Total Protein Vancomycin Trough Rheumatoid Factor Complement C4 Miscellaneous Test Crossmatch 11/09/16 11/09/16 11/09/16 04:35 10:15 18:21 WBC RBC 2.68 L Hgb 7.8 L Hct 23.3 L MCV MCH MCHC RDW 17.0 H Plt Count Lymph % (Auto) [place] % (Auto) 12.1 H Lymph # [place] # 1.1 H Baso # Seg Neutrophils % Seg Neuts % (Manual) Lymphocytes % (Manual) Monocytes % (Manual) Eosinophils % (Manual) Basophils % (Manual) Nucleated RBC % Seg Neutrophils # Seg Neutrophils # Man Lymphocytes # (Manual) Monocytes # (Manual) Eosinophils # (Manual) Basophils # (Manual) PT INR Fibrinogen dRVVT Confirm Interp Factor V Activity POC ABG pH POC ABG pCO2 POC ABG pO2 ABG pO2 ABG HCO3 ABG Base Excess ABG Hemoglobin Oxyhemoglobin Sodium Potassium Chloride Carbon Dioxide BUN 51 H Creatinine 1.8 H Glucose POC Glucose 60 L Lactic Acid Calcium 8.3 L Phosphorus Magnesium Direct Bilirubin AST ALT Alkaline Phosphatase Lactate Dehydrogenase Troponin T C-Reactive Protein Total Protein Albumin Prealbumin Triglycerides Cholesterol LDL Cholesterol Direct HDL Cholesterol Urine pH Urine WBC (Auto) Urine Creatinine Urine Total Protein Fluid Total Protein Vancomycin Trough Rheumatoid Factor Complement C4 Miscellaneous Test Crossmatch 11/09/16 11/10/16 11/10/16 18:55 07:00 11:51 WBC RBC Hgb Hct MCV MCH MCHC RDW Plt Count Lymph % (Auto) [place] % (Auto) Lymph # [place] # Baso # Seg Neutrophils % Seg Neuts % (Manual) Lymphocytes % (Manual) Monocytes % (Manual) Eosinophils % (Manual) Basophils % (Manual) Nucleated RBC % Seg Neutrophils # Seg Neutrophils # Man Lymphocytes # (Manual) Monocytes # (Manual) Eosinophils # (Manual) Basophils # (Manual) PT INR Fibrinogen dRVVT Confirm Interp Factor V Activity POC ABG pH POC ABG pCO2 POC ABG pO2 ABG pO2 ABG HCO3 ABG Base Excess ABG Hemoglobin Oxyhemoglobin Sodium Potassium 3.0 L D Chloride 97.4 L Carbon Dioxide BUN 28 H Creatinine 1.3 H Glucose POC Glucose 68 L 120 H Lactic Acid Calcium 7.8 L Phosphorus Magnesium Direct Bilirubin AST ALT Alkaline Phosphatase Lactate Dehydrogenase Troponin T C-Reactive Protein Total Protein Albumin Prealbumin Triglycerides Cholesterol LDL Cholesterol Direct HDL Cholesterol Urine pH Urine WBC (Auto) Urine Creatinine Urine Total Protein Fluid Total Protein Vancomycin Trough Rheumatoid Factor Complement C4 Miscellaneous Test Crossmatch 11/10/16 11/11/16 11/11/16 14:20 06:59 06:59 WBC RBC 2.81 L Hgb 8.1 L Hct 24.4 L MCV MCH MCHC RDW 16.4 H Plt Count Lymph % (Auto) [place] % (Auto) 10.8 H Lymph # [place] # 1.0 H Baso # Seg Neutrophils % Seg Neuts % (Manual) Lymphocytes % (Manual) Monocytes % (Manual) Eosinophils % (Manual) Basophils % (Manual) Nucleated RBC % Seg Neutrophils # Seg Neutrophils # Man Lymphocytes # (Manual) Monocytes # (Manual) Eosinophils # (Manual) Basophils # (Manual) PT INR Fibrinogen dRVVT Confirm Interp Factor V Activity POC ABG pH POC ABG pCO2 POC ABG pO2 ABG pO2 ABG HCO3 ABG Base Excess ABG Hemoglobin Oxyhemoglobin Sodium Potassium Chloride Carbon Dioxide BUN Creatinine Glucose POC Glucose Lactic Acid Calcium Phosphorus Magnesium Direct Bilirubin AST ALT Alkaline Phosphatase Lactate Dehydrogenase 196 H Troponin T C-Reactive Protein Total Protein 6.1 L Albumin Prealbumin Triglycerides Cholesterol LDL Cholesterol Direct HDL Cholesterol Urine pH Urine WBC (Auto) Urine Creatinine Urine Total Protein Fluid Total Protein < 3.0 L Vancomycin Trough Rheumatoid Factor Complement C4 Miscellaneous Test Crossmatch 11/11/16 11/11/16 11/12/16 06:59 09:50 04:00 WBC RBC Hgb Hct MCV MCH MCHC RDW Plt Count Lymph % (Auto) [place] % (Auto) Lymph # [place] # Baso # Seg Neutrophils % Seg Neuts % (Manual) Lymphocytes % (Manual) Monocytes % (Manual) Eosinophils % (Manual) Basophils % (Manual) Nucleated RBC % Seg Neutrophils # Seg Neutrophils # Man Lymphocytes # (Manual) Monocytes # (Manual) Eosinophils # (Manual) Basophils # (Manual) PT INR 1.18 H Fibrinogen dRVVT Confirm Interp Factor V Activity POC ABG pH POC ABG pCO2 POC ABG pO2 ABG pO2 ABG HCO3 ABG Base Excess ABG Hemoglobin Oxyhemoglobin Sodium 136 L 133 L Potassium Chloride 96.1 L 94.8 L Carbon Dioxide 21 L BUN 37 H 42 H Creatinine 1.8 H 2.0 H Glucose POC Glucose Lactic Acid Calcium Phosphorus Magnesium Direct Bilirubin AST ALT Alkaline Phosphatase Lactate Dehydrogenase Troponin T C-Reactive Protein Total Protein Albumin Prealbumin Triglycerides Cholesterol LDL Cholesterol Direct HDL Cholesterol Urine pH Urine WBC (Auto) Urine Creatinine Urine Total Protein Fluid Total Protein Vancomycin Trough Rheumatoid Factor Complement C4 Miscellaneous Test Crossmatch 11/12/16 11/12/16 11/13/16 04:00 23:55 05:53 WBC RBC Hgb 8.9 L Hct 27.2 L MCV MCH MCHC RDW Plt Count Lymph % (Auto) [place] % (Auto) Lymph # [place] # Baso # Seg Neutrophils % Seg Neuts % (Manual) Lymphocytes % (Manual) Monocytes % (Manual) Eosinophils % (Manual) Basophils % (Manual) Nucleated RBC % Seg Neutrophils # Seg Neutrophils # Man Lymphocytes # (Manual) Monocytes # (Manual) Eosinophils # (Manual) Basophils # (Manual) PT INR Fibrinogen dRVVT Confirm Interp Factor V Activity POC ABG pH POC ABG pCO2 POC ABG pO2 ABG pO2 ABG HCO3 ABG Base Excess ABG Hemoglobin Oxyhemoglobin Sodium Potassium Chloride Carbon Dioxide BUN Creatinine Glucose POC Glucose 132 H 120 H Lactic Acid Calcium Phosphorus Magnesium Direct Bilirubin AST ALT Alkaline Phosphatase Lactate Dehydrogenase Troponin T C-Reactive Protein Total Protein Albumin Prealbumin Triglycerides Cholesterol LDL Cholesterol Direct HDL Cholesterol Urine pH Urine WBC (Auto) Urine Creatinine Urine Total Protein Fluid Total Protein Vancomycin Trough Rheumatoid Factor Complement C4 Miscellaneous Test Crossmatch 11/13/16 11/13/16 11/13/16 11:43 17:09 23:41 WBC RBC Hgb Hct MCV MCH MCHC RDW Plt Count Lymph % (Auto) [place] % (Auto) Lymph # [place] # Baso # Seg Neutrophils % Seg Neuts % (Manual) Lymphocytes % (Manual) Monocytes % (Manual) Eosinophils % (Manual) Basophils % (Manual) Nucleated RBC % Seg Neutrophils # Seg Neutrophils # Man Lymphocytes # (Manual) Monocytes # (Manual) Eosinophils # (Manual) Basophils # (Manual) PT INR Fibrinogen dRVVT Confirm Interp Factor V Activity POC ABG pH POC ABG pCO2 POC ABG pO2 ABG pO2 ABG HCO3 ABG Base Excess ABG Hemoglobin Oxyhemoglobin Sodium Potassium Chloride Carbon Dioxide BUN Creatinine Glucose POC Glucose 114 H 113 H 108 H Lactic Acid Calcium Phosphorus Magnesium Direct Bilirubin AST ALT Alkaline Phosphatase Lactate Dehydrogenase Troponin T C-Reactive Protein Total Protein Albumin Prealbumin Triglycerides Cholesterol LDL Cholesterol Direct HDL Cholesterol Urine pH Urine WBC (Auto) Urine Creatinine Urine Total Protein Fluid Total Protein Vancomycin Trough Rheumatoid Factor Complement C4 Miscellaneous Test Crossmatch 11/13/16 11/15/16 11/15/16 Unknown 00:37 03:30 WBC 11.2 H RBC 2.72 L Hgb 7.6 L Hct 23.4 L MCV MCH MCHC RDW 16.5 H Plt Count Lymph % (Auto) [place] % (Auto) Lymph # [place] # Baso # Seg Neutrophils % Seg Neuts % (Manual) Lymphocytes % (Manual) Monocytes % (Manual) Eosinophils % (Manual) Basophils % (Manual) Nucleated RBC % Seg Neutrophils # Seg Neutrophils # Man Lymphocytes # (Manual) Monocytes # (Manual) Eosinophils # (Manual) Basophils # (Manual) PT INR Fibrinogen dRVVT Confirm Interp Factor V Activity POC ABG pH POC ABG pCO2 POC ABG pO2 ABG pO2 ABG HCO3 ABG Base Excess ABG Hemoglobin Oxyhemoglobin Sodium 135 L Potassium Chloride 95.2 L Carbon Dioxide BUN 52 H Creatinine 2.2 H Glucose POC Glucose 108 H Lactic Acid Calcium Phosphorus Magnesium Direct Bilirubin AST ALT Alkaline Phosphatase Lactate Dehydrogenase Troponin T C-Reactive Protein Total Protein Albumin Prealbumin Triglycerides Cholesterol LDL Cholesterol Direct HDL Cholesterol Urine pH Urine WBC (Auto) Urine Creatinine Urine Total Protein Fluid Total Protein Vancomycin Trough Rheumatoid Factor Complement C4 Miscellaneous Test Crossmatch 11/15/16 11/15/16 11/15/16 03:30 05:04 11:50 WBC RBC Hgb Hct MCV MCH MCHC RDW Plt Count Lymph % (Auto) [place] % (Auto) Lymph # [place] # Baso # Seg Neutrophils % Seg Neuts % (Manual) Lymphocytes % (Manual) Monocytes % (Manual) Eosinophils % (Manual) Basophils % (Manual) Nucleated RBC % Seg Neutrophils # Seg Neutrophils # Man Lymphocytes # (Manual) Monocytes # (Manual) Eosinophils # (Manual) Basophils # (Manual) PT INR Fibrinogen dRVVT Confirm Interp Factor V Activity POC ABG pH POC ABG pCO2 POC ABG pO2 ABG pO2 ABG HCO3 ABG Base Excess ABG Hemoglobin Oxyhemoglobin Sodium Potassium 3.4 L Chloride Carbon Dioxide BUN 25 H Creatinine 1.5 H Glucose 103 H POC Glucose 121 H 144 H Lactic Acid Calcium Phosphorus Magnesium Direct Bilirubin AST ALT Alkaline Phosphatase Lactate Dehydrogenase Troponin T C-Reactive Protein Total Protein Albumin Prealbumin Triglycerides Cholesterol LDL Cholesterol Direct HDL Cholesterol Urine pH Urine WBC (Auto) Urine Creatinine Urine Total Protein Fluid Total Protein Vancomycin Trough Rheumatoid Factor Complement C4 Miscellaneous Test Crossmatch 11/15/16 11/15/16 11/16/16 21:28 23:20 11:44 WBC RBC Hgb Hct MCV MCH MCHC RDW Plt Count Lymph % (Auto) [place] % (Auto) Lymph # [place] # Baso # Seg Neutrophils % Seg Neuts % (Manual) Lymphocytes % (Manual) Monocytes % (Manual) Eosinophils % (Manual) Basophils % (Manual) Nucleated RBC % Seg Neutrophils # Seg Neutrophils # Man Lymphocytes # (Manual) Monocytes # (Manual) Eosinophils # (Manual) Basophils # (Manual) PT INR Fibrinogen dRVVT Confirm Interp Factor V Activity POC ABG pH 7.462 H POC ABG pCO2 POC ABG pO2 71 L ABG pO2 ABG HCO3 ABG Base Excess ABG Hemoglobin Oxyhemoglobin Sodium Potassium Chloride Carbon Dioxide BUN Creatinine Glucose POC Glucose 116 H 133 H Lactic Acid Calcium Phosphorus Magnesium Direct Bilirubin AST ALT Alkaline Phosphatase Lactate Dehydrogenase Troponin T C-Reactive Protein Total Protein Albumin Prealbumin Triglycerides Cholesterol LDL Cholesterol Direct HDL Cholesterol Urine pH Urine WBC (Auto) Urine Creatinine Urine Total Protein Fluid Total Protein Vancomycin Trough Rheumatoid Factor Complement C4 Miscellaneous Test Crossmatch 11/16/16 11/16/16 11/16/16 12:20 17:05 23:35 WBC 11.7 H RBC 2.73 L Hgb 7.6 L Hct 23.7 L MCV MCH MCHC RDW 16.6 H Plt Count Lymph % (Auto) [place] % (Auto) Lymph # [place] # Baso # Seg Neutrophils % Seg Neuts % (Manual) Lymphocytes % (Manual) Monocytes % (Manual) Eosinophils % (Manual) Basophils % (Manual) Nucleated RBC % Seg Neutrophils # Seg Neutrophils # Man Lymphocytes # (Manual) Monocytes # (Manual) Eosinophils # (Manual) Basophils # (Manual) PT INR Fibrinogen dRVVT Confirm Interp Factor V Activity POC ABG pH POC ABG pCO2 POC ABG pO2 ABG pO2 ABG HCO3 ABG Base Excess ABG Hemoglobin Oxyhemoglobin Sodium Potassium Chloride Carbon Dioxide BUN Creatinine Glucose POC Glucose 154 H 125 H Lactic Acid Calcium Phosphorus Magnesium Direct Bilirubin AST ALT Alkaline Phosphatase Lactate Dehydrogenase Troponin T C-Reactive Protein Total Protein Albumin Prealbumin Triglycerides Cholesterol LDL Cholesterol Direct HDL Cholesterol Urine pH Urine WBC (Auto) Urine Creatinine Urine Total Protein Fluid Total Protein Vancomycin Trough Rheumatoid Factor Complement C4 Miscellaneous Test Crossmatch 11/17/16 11/17/16 11/17/16 03:20 03:20 03:20 WBC RBC 2.55 L Hgb 7.3 L Hct 21.9 L MCV MCH MCHC RDW 16.6 H Plt Count Lymph % (Auto) [place] % (Auto) 11.5 H Lymph # [place] # 1.1 H Baso # Seg Neutrophils % Seg Neuts % (Manual) Lymphocytes % (Manual) Monocytes % (Manual) Eosinophils % (Manual) Basophils % (Manual) Nucleated RBC % Seg Neutrophils # Seg Neutrophils # Man Lymphocytes # (Manual) Monocytes # (Manual) Eosinophils # (Manual) Basophils # (Manual) PT 16.8 H INR 1.37 H Fibrinogen dRVVT Confirm Interp Factor V Activity POC ABG pH POC ABG pCO2 POC ABG pO2 ABG pO2 ABG HCO3 ABG Base Excess ABG Hemoglobin Oxyhemoglobin Sodium Potassium 3.5 L Chloride Carbon Dioxide BUN 21 H Creatinine Glucose POC Glucose Lactic Acid Calcium 7.9 L Phosphorus Magnesium Direct Bilirubin AST ALT Alkaline Phosphatase Lactate Dehydrogenase Troponin T C-Reactive Protein Total Protein Albumin Prealbumin Triglycerides Cholesterol LDL Cholesterol Direct HDL Cholesterol Urine pH Urine WBC (Auto) Urine Creatinine Urine Total Protein Fluid Total Protein Vancomycin Trough Rheumatoid Factor Complement C4 Miscellaneous Test Crossmatch 11/17/16 11/17/16 11/17/16 06:34 11:21 21:22 WBC RBC Hgb Hct MCV MCH MCHC RDW Plt Count Lymph % (Auto) [place] % (Auto) Lymph # [place] # Baso # Seg Neutrophils % Seg Neuts % (Manual) Lymphocytes % (Manual) Monocytes % (Manual) Eosinophils % (Manual) Basophils % (Manual) Nucleated RBC % Seg Neutrophils # Seg Neutrophils # Man Lymphocytes # (Manual) Monocytes # (Manual) Eosinophils # (Manual) Basophils # (Manual) PT INR Fibrinogen dRVVT Confirm Interp Factor V Activity POC ABG pH 7.467 H POC ABG pCO2 POC ABG pO2 73 L ABG pO2 ABG HCO3 ABG Base Excess ABG Hemoglobin Oxyhemoglobin Sodium Potassium Chloride Carbon Dioxide BUN Creatinine Glucose POC Glucose 121 H 119 H Lactic Acid Calcium Phosphorus Magnesium Direct Bilirubin AST ALT Alkaline Phosphatase Lactate Dehydrogenase Troponin T C-Reactive Protein Total Protein Albumin Prealbumin Triglycerides Cholesterol LDL Cholesterol Direct HDL Cholesterol Urine pH Urine WBC (Auto) Urine Creatinine Urine Total Protein Fluid Total Protein Vancomycin Trough Rheumatoid Factor Complement C4 Miscellaneous Test Crossmatch 11/18/16 11/18/16 11/19/16 12:16 17:19 00:00 WBC RBC Hgb Hct MCV MCH MCHC RDW Plt Count Lymph % (Auto) [place] % (Auto) Lymph # [place] # Baso # Seg Neutrophils % Seg Neuts % (Manual) Lymphocytes % (Manual) Monocytes % (Manual) Eosinophils % (Manual) Basophils % (Manual) Nucleated RBC % Seg Neutrophils # Seg Neutrophils # Man Lymphocytes # (Manual) Monocytes # (Manual) Eosinophils # (Manual) Basophils # (Manual) PT INR Fibrinogen dRVVT Confirm Interp Factor V Activity POC ABG pH POC ABG pCO2 POC ABG pO2 ABG pO2 ABG HCO3 ABG Base Excess ABG Hemoglobin Oxyhemoglobin Sodium Potassium Chloride Carbon Dioxide BUN Creatinine Glucose POC Glucose 124 H 162 H 139 H Lactic Acid Calcium Phosphorus Magnesium Direct Bilirubin AST ALT Alkaline Phosphatase Lactate Dehydrogenase Troponin T C-Reactive Protein Total Protein Albumin Prealbumin Triglycerides Cholesterol LDL Cholesterol Direct HDL Cholesterol Urine pH Urine WBC (Auto) Urine Creatinine Urine Total Protein Fluid Total Protein Vancomycin Trough Rheumatoid Factor Complement C4 Miscellaneous Test Crossmatch 11/19/16 11/19/16 11/20/16 05:00 12:43 00:40 WBC RBC Hgb Hct MCV MCH MCHC RDW Plt Count Lymph % (Auto) [place] % (Auto) Lymph # [place] # Baso # Seg Neutrophils % Seg Neuts % (Manual) Lymphocytes % (Manual) Monocytes % (Manual) Eosinophils % (Manual) Basophils % (Manual) Nucleated RBC % Seg Neutrophils # Seg Neutrophils # Man Lymphocytes # (Manual) Monocytes # (Manual) Eosinophils # (Manual) Basophils # (Manual) PT INR Fibrinogen dRVVT Confirm Interp Factor V Activity POC ABG pH POC ABG pCO2 POC ABG pO2 ABG pO2 ABG HCO3 ABG Base Excess ABG Hemoglobin Oxyhemoglobin Sodium Potassium Chloride Carbon Dioxide BUN Creatinine Glucose POC Glucose 110 H 125 H 136 H Lactic Acid Calcium Phosphorus Magnesium Direct Bilirubin AST ALT Alkaline Phosphatase Lactate Dehydrogenase Troponin T C-Reactive Protein Total Protein Albumin Prealbumin Triglycerides Cholesterol LDL Cholesterol Direct HDL Cholesterol Urine pH Urine WBC (Auto) Urine Creatinine Urine Total Protein Fluid Total Protein Vancomycin Trough Rheumatoid Factor Complement C4 Miscellaneous Test Crossmatch 11/20/16 11/20/16 11/20/16 05:00 05:00 05:51 WBC 13.1 H RBC 2.74 L Hgb 7.7 L Hct 23.6 L MCV MCH MCHC RDW 16.9 H Plt Count Lymph % (Auto) [place] % (Auto) 10.8 H Lymph # [place] # 1.4 H Baso # Seg Neutrophils % Seg Neuts % (Manual) Lymphocytes % (Manual) Monocytes % (Manual) Eosinophils % (Manual) Basophils % (Manual) Nucleated RBC % Seg Neutrophils # 7.9 H Seg Neutrophils # Man Lymphocytes # (Manual) Monocytes # (Manual) Eosinophils # (Manual) Basophils # (Manual) PT INR Fibrinogen dRVVT Confirm Interp Factor V Activity POC ABG pH POC ABG pCO2 POC ABG pO2 ABG pO2 ABG HCO3 ABG Base Excess ABG Hemoglobin Oxyhemoglobin Sodium Potassium Chloride Carbon Dioxide BUN 31 H Creatinine 1.8 H Glucose 129 H POC Glucose 133 H Lactic Acid Calcium Phosphorus Magnesium Direct Bilirubin AST ALT Alkaline Phosphatase Lactate Dehydrogenase Troponin T C-Reactive Protein Total Protein Albumin Prealbumin Triglycerides Cholesterol LDL Cholesterol Direct HDL Cholesterol Urine pH Urine WBC (Auto) Urine Creatinine Urine Total Protein Fluid Total Protein Vancomycin Trough Rheumatoid Factor Complement C4 Miscellaneous Test Crossmatch 11/20/16 11/20/16 11/21/16 12:40 18:10 01:20 WBC RBC Hgb Hct MCV MCH MCHC RDW Plt Count Lymph % (Auto) [place] % (Auto) Lymph # [place] # Baso # Seg Neutrophils % Seg Neuts % (Manual) Lymphocytes % (Manual) Monocytes % (Manual) Eosinophils % (Manual) Basophils % (Manual) Nucleated RBC % Seg Neutrophils # Seg Neutrophils # Man Lymphocytes # (Manual) Monocytes # (Manual) Eosinophils # (Manual) Basophils # (Manual) PT INR Fibrinogen dRVVT Confirm Interp Factor V Activity POC ABG pH POC ABG pCO2 POC ABG pO2 ABG pO2 ABG HCO3 ABG Base Excess ABG Hemoglobin Oxyhemoglobin Sodium Potassium Chloride Carbon Dioxide BUN Creatinine Glucose POC Glucose 134 H 138 H 136 H Lactic Acid Calcium Phosphorus Magnesium Direct Bilirubin AST ALT Alkaline Phosphatase Lactate Dehydrogenase Troponin T C-Reactive Protein Total Protein Albumin Prealbumin Triglycerides Cholesterol LDL Cholesterol Direct HDL Cholesterol Urine pH Urine WBC (Auto) Urine Creatinine Urine Total Protein Fluid Total Protein Vancomycin Trough Rheumatoid Factor Complement C4 Miscellaneous Test Crossmatch 11/21/16 11/21/16 11/21/16 07:04 07:45 07:45 WBC 22.0 H RBC 2.91 L Hgb 8.2 L Hct 25.4 L MCV MCH MCHC RDW 17.1 H Plt Count Lymph % (Auto) [place] % (Auto) Lymph # [place] # Baso # Seg Neutrophils % Seg Neuts % (Manual) Lymphocytes % (Manual) 8.0 L Monocytes % (Manual) Eosinophils % (Manual) Basophils % (Manual) Nucleated RBC % Seg Neutrophils # Seg Neutrophils # Man 14.7 H Lymphocytes # (Manual) Monocytes # (Manual) 1.1 H Eosinophils # (Manual) Basophils # (Manual) PT INR Fibrinogen dRVVT Confirm Interp Factor V Activity POC ABG pH POC ABG pCO2 POC ABG pO2 ABG pO2 ABG HCO3 ABG Base Excess ABG Hemoglobin Oxyhemoglobin Sodium Potassium Chloride Carbon Dioxide BUN 42 H Creatinine 2.0 H Glucose POC Glucose 108 H Lactic Acid Calcium Phosphorus Magnesium Direct Bilirubin AST ALT Alkaline Phosphatase Lactate Dehydrogenase Troponin T C-Reactive Protein Total Protein Albumin Prealbumin Triglycerides Cholesterol LDL Cholesterol Direct HDL Cholesterol Urine pH Urine WBC (Auto) Urine Creatinine Urine Total Protein Fluid Total Protein Vancomycin Trough Rheumatoid Factor Complement C4 Miscellaneous Test Crossmatch 11/21/16 11/21/16 11/21/16 08:38 10:09 11:20 WBC RBC Hgb Hct MCV MCH MCHC RDW Plt Count Lymph % (Auto) [place] % (Auto) Lymph # [place] # Baso # Seg Neutrophils % Seg Neuts % (Manual) Lymphocytes % (Manual) Monocytes % (Manual) Eosinophils % (Manual) Basophils % (Manual) Nucleated RBC % Seg Neutrophils # Seg Neutrophils # Man Lymphocytes # (Manual) Monocytes # (Manual) Eosinophils # (Manual) Basophils # (Manual) PT INR Fibrinogen dRVVT Confirm Interp Factor V Activity POC ABG pH 7.346 L POC ABG pCO2 34.4 L POC ABG pO2 314 H ABG pO2 ABG HCO3 ABG Base Excess ABG Hemoglobin Oxyhemoglobin Sodium Potassium Chloride Carbon Dioxide BUN Creatinine Glucose POC Glucose 195 H 153 H Lactic Acid Calcium Phosphorus Magnesium Direct Bilirubin AST ALT Alkaline Phosphatase Lactate Dehydrogenase Troponin T C-Reactive Protein Total Protein Albumin Prealbumin Triglycerides Cholesterol LDL Cholesterol Direct HDL Cholesterol Urine pH Urine WBC (Auto) Urine Creatinine Urine Total Protein Fluid Total Protein Vancomycin Trough Rheumatoid Factor Complement C4 Miscellaneous Test Crossmatch 11/21/16 11/22/16 11/22/16 23:37 04:48 05:00 WBC 29.7 H RBC 2.73 L Hgb 7.5 L Hct 24.2 L MCV MCH 27 L MCHC RDW 17.4 H Plt Count Lymph % (Auto) [place] % (Auto) Lymph # [place] # Baso # Seg Neutrophils % Seg Neuts % (Manual) Lymphocytes % (Manual) 7.0 L Monocytes % (Manual) Eosinophils % (Manual) Basophils % (Manual) Nucleated RBC % Seg Neutrophils # Seg Neutrophils # Man 15.4 H Lymphocytes # (Manual) Monocytes # (Manual) Eosinophils # (Manual) Basophils # (Manual) PT INR Fibrinogen dRVVT Confirm Interp Factor V Activity POC ABG pH POC ABG pCO2 24.6 L POC ABG pO2 189 H ABG pO2 ABG HCO3 ABG Base Excess ABG Hemoglobin Oxyhemoglobin Sodium Potassium Chloride Carbon Dioxide BUN Creatinine Glucose POC Glucose 65 L Lactic Acid Calcium Phosphorus Magnesium Direct Bilirubin AST ALT Alkaline Phosphatase Lactate Dehydrogenase Troponin T C-Reactive Protein Total Protein Albumin Prealbumin Triglycerides Cholesterol LDL Cholesterol Direct HDL Cholesterol Urine pH Urine WBC (Auto) Urine Creatinine Urine Total Protein Fluid Total Protein Vancomycin Trough Rheumatoid Factor Complement C4 Miscellaneous Test Crossmatch 11/22/16 11/23/16 11/23/16 05:00 03:44 04:06 WBC RBC 2.52 L Hgb 7.2 L Hct 21.5 L MCV MCH MCHC RDW 17.1 H Plt Count Lymph % (Auto) [place] % (Auto) 12.4 H Lymph # [place] # 1.4 H Baso # Seg Neutrophils % Seg Neuts % (Manual) Lymphocytes % (Manual) Monocytes % (Manual) Eosinophils % (Manual) Basophils % (Manual) Nucleated RBC % Seg Neutrophils # Seg Neutrophils # Man Lymphocytes # (Manual) Monocytes # (Manual) Eosinophils # (Manual) Basophils # (Manual) PT INR Fibrinogen dRVVT Confirm Interp Factor V Activity POC ABG pH 7.493 H POC ABG pCO2 29.5 L POC ABG pO2 49 L ABG pO2 ABG HCO3 ABG Base Excess ABG Hemoglobin Oxyhemoglobin Sodium 134 L Potassium Chloride 95.9 L Carbon Dioxide 14 L D BUN 51 H Creatinine 2.6 H Glucose POC Glucose Lactic Acid Calcium Phosphorus Magnesium Direct Bilirubin AST ALT Alkaline Phosphatase Lactate Dehydrogenase Troponin T C-Reactive Protein Total Protein Albumin Prealbumin Triglycerides Cholesterol LDL Cholesterol Direct HDL Cholesterol Urine pH Urine WBC (Auto) Urine Creatinine Urine Total Protein Fluid Total Protein Vancomycin Trough Rheumatoid Factor Complement C4 Miscellaneous Test Crossmatch 11/23/16 11/23/16 11/24/16 04:06 11:29 06:39 WBC RBC Hgb Hct MCV MCH MCHC RDW Plt Count Lymph % (Auto) [place] % (Auto) Lymph # [place] # Baso # Seg Neutrophils % Seg Neuts % (Manual) Lymphocytes % (Manual) Monocytes % (Manual) Eosinophils % (Manual) Basophils % (Manual) Nucleated RBC % Seg Neutrophils # Seg Neutrophils # Man Lymphocytes # (Manual) Monocytes # (Manual) Eosinophils # (Manual) Basophils # (Manual) PT INR Fibrinogen dRVVT Confirm Interp Factor V Activity POC ABG pH POC ABG pCO2 POC ABG pO2 ABG pO2 ABG HCO3 ABG Base Excess ABG Hemoglobin Oxyhemoglobin Sodium 136 L Potassium Chloride 95.2 L Carbon Dioxide BUN 60 H Creatinine 2.9 H Glucose POC Glucose 69 L 305 H Lactic Acid Calcium Phosphorus Magnesium 1.60 L Direct Bilirubin AST ALT Alkaline Phosphatase Lactate Dehydrogenase Troponin T C-Reactive Protein Total Protein Albumin Prealbumin Triglycerides Cholesterol LDL Cholesterol Direct HDL Cholesterol Urine pH Urine WBC (Auto) Urine Creatinine Urine Total Protein Fluid Total Protein Vancomycin Trough Rheumatoid Factor Complement C4 Miscellaneous Test Crossmatch 11/24/16 11/24/16 11/24/16 06:43 08:08 08:08 WBC 11.2 H RBC 2.47 L Hgb 6.8 L Hct 20.6 L MCV MCH MCHC RDW 17.0 H Plt Count Lymph % (Auto) [place] % (Auto) 10.3 H Lymph # [place] # 1.2 H Baso # Seg Neutrophils % Seg Neuts % (Manual) Lymphocytes % (Manual) Monocytes % (Manual) Eosinophils % (Manual) Basophils % (Manual) Nucleated RBC % Seg Neutrophils # Seg Neutrophils # Man Lymphocytes # (Manual) Monocytes # (Manual) Eosinophils # (Manual) Basophils # (Manual) PT INR Fibrinogen dRVVT Confirm Interp Factor V Activity POC ABG pH POC ABG pCO2 POC ABG pO2 ABG pO2 ABG HCO3 ABG Base Excess ABG Hemoglobin Oxyhemoglobin Sodium 135 L Potassium Chloride 96.3 L Carbon Dioxide BUN 61 H Creatinine 3.1 H Glucose POC Glucose 62 L Lactic Acid Calcium 8.2 L Phosphorus Magnesium Direct Bilirubin AST ALT Alkaline Phosphatase Lactate Dehydrogenase Troponin T C-Reactive Protein Total Protein Albumin Prealbumin Triglycerides Cholesterol LDL Cholesterol Direct HDL Cholesterol Urine pH Urine WBC (Auto) Urine Creatinine Urine Total Protein Fluid Total Protein Vancomycin Trough Rheumatoid Factor Complement C4 Miscellaneous Test Crossmatch 11/24/16 11/24/16 11/24/16 08:34 11:20 12:41 WBC RBC Hgb Hct MCV MCH MCHC RDW Plt Count Lymph % (Auto) [place] % (Auto) Lymph # [place] # Baso # Seg Neutrophils % Seg Neuts % (Manual) Lymphocytes % (Manual) Monocytes % (Manual) Eosinophils % (Manual) Basophils % (Manual) Nucleated RBC % Seg Neutrophils # Seg Neutrophils # Man Lymphocytes # (Manual) Monocytes # (Manual) Eosinophils # (Manual) Basophils # (Manual) PT INR Fibrinogen dRVVT Confirm Interp Factor V Activity POC ABG pH POC ABG pCO2 POC ABG pO2 ABG pO2 ABG HCO3 ABG Base Excess ABG Hemoglobin Oxyhemoglobin Sodium Potassium Chloride Carbon Dioxide BUN Creatinine Glucose POC Glucose 108 H Lactic Acid Calcium Phosphorus Magnesium 1.60 L Direct Bilirubin AST ALT Alkaline Phosphatase Lactate Dehydrogenase Troponin T C-Reactive Protein Total Protein Albumin Prealbumin Triglycerides Cholesterol LDL Cholesterol Direct HDL Cholesterol Urine pH Urine WBC (Auto) Urine Creatinine Urine Total Protein Fluid Total Protein Vancomycin Trough Rheumatoid Factor Complement C4 Miscellaneous Test Crossmatch See Detail 11/25/16 11/25/16 11/25/16 00:03 04:42 04:42 WBC RBC 3.03 L Hgb 8.6 L Hct 25.3 L MCV MCH MCHC RDW 16.2 H Plt Count Lymph % (Auto) [place] % (Auto) 8.1 H Lymph # [place] # Baso # Seg Neutrophils % 71.3 H Seg Neuts % (Manual) Lymphocytes % (Manual) Monocytes % (Manual) Eosinophils % (Manual) Basophils % (Manual) Nucleated RBC % Seg Neutrophils # Seg Neutrophils # Man Lymphocytes # (Manual) Monocytes # (Manual) Eosinophils # (Manual) Basophils # (Manual) PT INR Fibrinogen dRVVT Confirm Interp Factor V Activity POC ABG pH POC ABG pCO2 POC ABG pO2 ABG pO2 ABG HCO3 ABG Base Excess ABG Hemoglobin Oxyhemoglobin Sodium Potassium Chloride Carbon Dioxide BUN 61 H Creatinine 3.0 H Glucose 102 H POC Glucose 113 H Lactic Acid Calcium 8.2 L Phosphorus Magnesium Direct Bilirubin AST ALT Alkaline Phosphatase 142 H Lactate Dehydrogenase Troponin T C-Reactive Protein Total Protein 5.7 L Albumin 1.5 L Prealbumin Triglycerides Cholesterol LDL Cholesterol Direct HDL Cholesterol Urine pH Urine WBC (Auto) Urine Creatinine Urine Total Protein Fluid Total Protein Vancomycin Trough Rheumatoid Factor Complement C4 Miscellaneous Test Crossmatch 11/25/16 11/25/16 11/25/16 05:12 11:31 14:12 WBC RBC Hgb Hct MCV MCH MCHC RDW Plt Count Lymph % (Auto) [place] % (Auto) Lymph # [place] # Baso # Seg Neutrophils % Seg Neuts % (Manual) Lymphocytes % (Manual) Monocytes % (Manual) Eosinophils % (Manual) Basophils % (Manual) Nucleated RBC % Seg Neutrophils # Seg Neutrophils # Man Lymphocytes # (Manual) Monocytes # (Manual) Eosinophils # (Manual) Basophils # (Manual) PT INR Fibrinogen dRVVT Confirm Interp Factor V Activity POC ABG pH 7.487 H POC ABG pCO2 POC ABG pO2 153 H ABG pO2 ABG HCO3 ABG Base Excess ABG Hemoglobin Oxyhemoglobin Sodium Potassium Chloride Carbon Dioxide BUN Creatinine Glucose POC Glucose 131 H 140 H Lactic Acid Calcium Phosphorus Magnesium Direct Bilirubin AST ALT Alkaline Phosphatase Lactate Dehydrogenase Troponin T C-Reactive Protein Total Protein Albumin Prealbumin Triglycerides Cholesterol LDL Cholesterol Direct HDL Cholesterol Urine pH Urine WBC (Auto) Urine Creatinine Urine Total Protein Fluid Total Protein Vancomycin Trough Rheumatoid Factor Complement C4 Miscellaneous Test Crossmatch 11/25/16 11/26/16 11/26/16 17:23 00:09 05:13 WBC RBC 2.94 L Hgb 8.4 L Hct 24.6 L MCV MCH MCHC RDW 16.4 H Plt Count Lymph % (Auto) [place] % (Auto) 12.3 H Lymph # [place] # 1.1 H Baso # Seg Neutrophils % Seg Neuts % (Manual) Lymphocytes % (Manual) Monocytes % (Manual) Eosinophils % (Manual) Basophils % (Manual) Nucleated RBC % Seg Neutrophils # Seg Neutrophils # Man Lymphocytes # (Manual) Monocytes # (Manual) Eosinophils # (Manual) Basophils # (Manual) PT INR Fibrinogen dRVVT Confirm Interp Factor V Activity POC ABG pH POC ABG pCO2 POC ABG pO2 ABG pO2 ABG HCO3 ABG Base Excess ABG Hemoglobin Oxyhemoglobin Sodium Potassium Chloride Carbon Dioxide BUN Creatinine Glucose POC Glucose 146 H 112 H Lactic Acid Calcium Phosphorus Magnesium Direct Bilirubin AST ALT Alkaline Phosphatase Lactate Dehydrogenase Troponin T C-Reactive Protein Total Protein Albumin Prealbumin Triglycerides Cholesterol LDL Cholesterol Direct HDL Cholesterol Urine pH Urine WBC (Auto) Urine Creatinine Urine Total Protein Fluid Total Protein Vancomycin Trough Rheumatoid Factor Complement C4 Miscellaneous Test Crossmatch 11/26/16 11/26/16 11/26/16 05:13 05:28 11:53 WBC RBC Hgb Hct MCV MCH MCHC RDW Plt Count Lymph % (Auto) [place] % (Auto) Lymph # [place] # Baso # Seg Neutrophils % Seg Neuts % (Manual) Lymphocytes % (Manual) Monocytes % (Manual) Eosinophils % (Manual) Basophils % (Manual) Nucleated RBC % Seg Neutrophils # Seg Neutrophils # Man Lymphocytes # (Manual) Monocytes # (Manual) Eosinophils # (Manual) Basophils # (Manual) PT INR Fibrinogen dRVVT Confirm Interp Factor V Activity POC ABG pH POC ABG pCO2 POC ABG pO2 ABG pO2 ABG HCO3 ABG Base Excess ABG Hemoglobin Oxyhemoglobin Sodium Potassium Chloride 97.8 L Carbon Dioxide BUN 37 H Creatinine 2.0 H Glucose 109 H POC Glucose 117 H 111 H Lactic Acid Calcium 7.9 L Phosphorus 1.80 L D Magnesium Direct Bilirubin AST ALT Alkaline Phosphatase Lactate Dehydrogenase Troponin T C-Reactive Protein Total Protein Albumin Prealbumin Triglycerides Cholesterol LDL Cholesterol Direct HDL Cholesterol Urine pH Urine WBC (Auto) Urine Creatinine Urine Total Protein Fluid Total Protein Vancomycin Trough Rheumatoid Factor Complement C4 Miscellaneous Test Crossmatch 11/26/16 11/27/16 11/27/16 17:14 04:50 06:02 WBC RBC Hgb Hct MCV MCH MCHC RDW Plt Count Lymph % (Auto) [place] % (Auto) Lymph # [place] # Baso # Seg Neutrophils % Seg Neuts % (Manual) Lymphocytes % (Manual) Monocytes % (Manual) Eosinophils % (Manual) Basophils % (Manual) Nucleated RBC % Seg Neutrophils # Seg Neutrophils # Man Lymphocytes # (Manual) Monocytes # (Manual) Eosinophils # (Manual) Basophils # (Manual) PT INR Fibrinogen dRVVT Confirm Interp Factor V Activity POC ABG pH POC ABG pCO2 POC ABG pO2 ABG pO2 75.2 L ABG HCO3 26.4 H ABG Base Excess ABG Hemoglobin 7.6 L Oxyhemoglobin 94.8 L Sodium Potassium Chloride Carbon Dioxide BUN 49 H Creatinine 2.3 H Glucose POC Glucose 115 H Lactic Acid Calcium Phosphorus 1.50 L Magnesium Direct Bilirubin AST ALT Alkaline Phosphatase Lactate Dehydrogenase Troponin T C-Reactive Protein Total Protein Albumin Prealbumin Triglycerides Cholesterol LDL Cholesterol Direct HDL Cholesterol Urine pH Urine WBC (Auto) Urine Creatinine Urine Total Protein Fluid Total Protein Vancomycin Trough Rheumatoid Factor Complement C4 Miscellaneous Test Crossmatch 11/27/16 11/27/16 11/27/16 06:02 11:25 17:25 WBC 11.6 H RBC 2.75 L Hgb 7.6 L Hct 23.4 L MCV MCH MCHC RDW 16.5 H Plt Count Lymph % (Auto) [place] % (Auto) Lymph # [place] # Baso # Seg Neutrophils % Seg Neuts % (Manual) Lymphocytes % (Manual) Monocytes % (Manual) Eosinophils % (Manual) Basophils % (Manual) Nucleated RBC % Seg Neutrophils # Seg Neutrophils # Man Lymphocytes # (Manual) Monocytes # (Manual) Eosinophils # (Manual) Basophils # (Manual) PT INR Fibrinogen dRVVT Confirm Interp Factor V Activity POC ABG pH POC ABG pCO2 POC ABG pO2 ABG pO2 ABG HCO3 ABG Base Excess ABG Hemoglobin Oxyhemoglobin Sodium Potassium Chloride Carbon Dioxide BUN Creatinine Glucose POC Glucose 114 H 126 H Lactic Acid Calcium Phosphorus Magnesium Direct Bilirubin AST ALT Alkaline Phosphatase Lactate Dehydrogenase Troponin T C-Reactive Protein Total Protein Albumin Prealbumin Triglycerides Cholesterol LDL Cholesterol Direct HDL Cholesterol Urine pH Urine WBC (Auto) Urine Creatinine Urine Total Protein Fluid Total Protein Vancomycin Trough Rheumatoid Factor Complement C4 Miscellaneous Test Crossmatch 11/28/16 11/28/16 11/28/16 04:45 05:33 05:44 WBC RBC Hgb Hct MCV MCH MCHC RDW Plt Count Lymph % (Auto) [place] % (Auto) Lymph # [place] # Baso # Seg Neutrophils % Seg Neuts % (Manual) Lymphocytes % (Manual) Monocytes % (Manual) Eosinophils % (Manual) Basophils % (Manual) Nucleated RBC % Seg Neutrophils # Seg Neutrophils # Man Lymphocytes # (Manual) Monocytes # (Manual) Eosinophils # (Manual) Basophils # (Manual) PT INR Fibrinogen dRVVT Confirm Interp Factor V Activity POC ABG pH POC ABG pCO2 POC ABG pO2 ABG pO2 99.3 H ABG HCO3 ABG Base Excess ABG Hemoglobin 8.3 L Oxyhemoglobin Sodium Potassium Chloride Carbon Dioxide BUN 63 H Creatinine 2.4 H Glucose 102 H POC Glucose 108 H Lactic Acid Calcium Phosphorus 1.80 L Magnesium Direct Bilirubin AST ALT Alkaline Phosphatase Lactate Dehydrogenase Troponin T C-Reactive Protein Total Protein Albumin Prealbumin Triglycerides Cholesterol LDL Cholesterol Direct HDL Cholesterol Urine pH Urine WBC (Auto) Urine Creatinine Urine Total Protein Fluid Total Protein Vancomycin Trough Rheumatoid Factor Complement C4 Miscellaneous Test Crossmatch 11/28/16 11/28/16 11/28/16 12:31 16:09 23:46 WBC RBC Hgb Hct MCV MCH MCHC RDW Plt Count Lymph % (Auto) [place] % (Auto) Lymph # [place] # Baso # Seg Neutrophils % Seg Neuts % (Manual) Lymphocytes % (Manual) Monocytes % (Manual) Eosinophils % (Manual) Basophils % (Manual) Nucleated RBC % Seg Neutrophils # Seg Neutrophils # Man Lymphocytes # (Manual) Monocytes # (Manual) Eosinophils # (Manual) Basophils # (Manual) PT INR Fibrinogen dRVVT Confirm Interp Factor V Activity POC ABG pH POC ABG pCO2 POC ABG pO2 ABG pO2 ABG HCO3 ABG Base Excess ABG Hemoglobin Oxyhemoglobin Sodium Potassium Chloride Carbon Dioxide BUN Creatinine Glucose POC Glucose 126 H 111 H 119 H Lactic Acid Calcium Phosphorus Magnesium Direct Bilirubin AST ALT Alkaline Phosphatase Lactate Dehydrogenase Troponin T C-Reactive Protein Total Protein Albumin Prealbumin Triglycerides Cholesterol LDL Cholesterol Direct HDL Cholesterol Urine pH Urine WBC (Auto) Urine Creatinine Urine Total Protein Fluid Total Protein Vancomycin Trough Rheumatoid Factor Complement C4 Miscellaneous Test Crossmatch 11/29/16 11/29/16 11/29/16 03:33 04:52 05:10 WBC RBC Hgb Hct MCV MCH MCHC RDW Plt Count Lymph % (Auto) [place] % (Auto) Lymph # [place] # Baso # Seg Neutrophils % Seg Neuts % (Manual) Lymphocytes % (Manual) Monocytes % (Manual) Eosinophils % (Manual) Basophils % (Manual) Nucleated RBC % Seg Neutrophils # Seg Neutrophils # Man Lymphocytes # (Manual) Monocytes # (Manual) Eosinophils # (Manual) Basophils # (Manual) PT INR Fibrinogen dRVVT Confirm Interp Factor V Activity POC ABG pH POC ABG pCO2 POC ABG pO2 ABG pO2 ABG HCO3 ABG Base Excess ABG Hemoglobin 7.0 L Oxyhemoglobin 94.9 L Sodium Potassium Chloride Carbon Dioxide BUN 73 H Creatinine 2.7 H Glucose POC Glucose 108 H Lactic Acid Calcium Phosphorus Magnesium Direct Bilirubin AST ALT Alkaline Phosphatase Lactate Dehydrogenase Troponin T C-Reactive Protein Total Protein Albumin Prealbumin Triglycerides Cholesterol LDL Cholesterol Direct HDL Cholesterol Urine pH Urine WBC (Auto) Urine Creatinine Urine Total Protein Fluid Total Protein Vancomycin Trough Rheumatoid Factor Complement C4 Miscellaneous Test Crossmatch 11/29/16 11/29/16 11/29/16 12:16 18:05 23:46 WBC RBC Hgb Hct MCV MCH MCHC RDW Plt Count Lymph % (Auto) [place] % (Auto) Lymph # [place] # Baso # Seg Neutrophils % Seg Neuts % (Manual) Lymphocytes % (Manual) Monocytes % (Manual) Eosinophils % (Manual) Basophils % (Manual) Nucleated RBC % Seg Neutrophils # Seg Neutrophils # Man Lymphocytes # (Manual) Monocytes # (Manual) Eosinophils # (Manual) Basophils # (Manual) PT INR Fibrinogen dRVVT Confirm Interp Factor V Activity POC ABG pH POC ABG pCO2 POC ABG pO2 ABG pO2 ABG HCO3 ABG Base Excess ABG Hemoglobin Oxyhemoglobin Sodium Potassium Chloride Carbon Dioxide BUN Creatinine Glucose POC Glucose 133 H 146 H 141 H Lactic Acid Calcium Phosphorus Magnesium Direct Bilirubin AST ALT Alkaline Phosphatase Lactate Dehydrogenase Troponin T C-Reactive Protein Total Protein Albumin Prealbumin Triglycerides Cholesterol LDL Cholesterol Direct HDL Cholesterol Urine pH Urine WBC (Auto) Urine Creatinine Urine Total Protein Fluid Total Protein Vancomycin Trough Rheumatoid Factor Complement C4 Miscellaneous Test Crossmatch 11/30/16 11/30/16 11/30/16 04:17 04:17 04:32 WBC 12.0 H RBC 2.80 L Hgb 7.8 L Hct 23.6 L MCV MCH MCHC RDW 16.6 H Plt Count Lymph % (Auto) [place] % (Auto) 11.3 H Lymph # [place] # 1.4 H Baso # Seg Neutrophils % Seg Neuts % (Manual) Lymphocytes % (Manual) Monocytes % (Manual) Eosinophils % (Manual) Basophils % (Manual) Nucleated RBC % Seg Neutrophils # 8.2 H Seg Neutrophils # Man Lymphocytes # (Manual) Monocytes # (Manual) Eosinophils # (Manual) Basophils # (Manual) PT INR Fibrinogen dRVVT Confirm Interp Factor V Activity POC ABG pH POC ABG pCO2 POC ABG pO2 ABG pO2 ABG HCO3 ABG Base Excess ABG Hemoglobin Oxyhemoglobin Sodium 169 H* D Potassium 5.1 H Chloride 121.5 H Carbon Dioxide BUN 34 H Creatinine 1.3 H D Glucose 133 H POC Glucose 131 H Lactic Acid Calcium 10.3 H Phosphorus Magnesium Direct Bilirubin AST ALT Alkaline Phosphatase Lactate Dehydrogenase Troponin T C-Reactive Protein Total Protein Albumin Prealbumin Triglycerides Cholesterol LDL Cholesterol Direct HDL Cholesterol Urine pH Urine WBC (Auto) Urine Creatinine Urine Total Protein Fluid Total Protein Vancomycin Trough Rheumatoid Factor Complement C4 Miscellaneous Test Crossmatch 11/30/16 11/30/16 11/30/16 05:45 11:10 17:26 WBC RBC Hgb Hct MCV MCH MCHC RDW Plt Count Lymph % (Auto) [place] % (Auto) Lymph # [place] # Baso # Seg Neutrophils % Seg Neuts % (Manual) Lymphocytes % (Manual) Monocytes % (Manual) Eosinophils % (Manual) Basophils % (Manual) Nucleated RBC % Seg Neutrophils # Seg Neutrophils # Man Lymphocytes # (Manual) Monocytes # (Manual) Eosinophils # (Manual) Basophils # (Manual) PT INR Fibrinogen dRVVT Confirm Interp Factor V Activity POC ABG pH POC ABG pCO2 POC ABG pO2 ABG pO2 ABG HCO3 ABG Base Excess ABG Hemoglobin Oxyhemoglobin Sodium Potassium Chloride Carbon Dioxide BUN 45 H Creatinine 1.6 H Glucose 131 H POC Glucose 146 H 134 H Lactic Acid Calcium Phosphorus Magnesium Direct Bilirubin AST ALT Alkaline Phosphatase Lactate Dehydrogenase Troponin T C-Reactive Protein Total Protein Albumin Prealbumin Triglycerides Cholesterol LDL Cholesterol Direct HDL Cholesterol Urine pH Urine WBC (Auto) Urine Creatinine Urine Total Protein Fluid Total Protein Vancomycin Trough Rheumatoid Factor Complement C4 Miscellaneous Test Crossmatch 11/30/16 12/01/16 12/01/16 23:35 00:06 03:35 WBC RBC Hgb Hct MCV MCH MCHC RDW Plt Count Lymph % (Auto) [place] % (Auto) Lymph # [place] # Baso # Seg Neutrophils % Seg Neuts % (Manual) Lymphocytes % (Manual) Monocytes % (Manual) Eosinophils % (Manual) Basophils % (Manual) Nucleated RBC % Seg Neutrophils # Seg Neutrophils # Man Lymphocytes # (Manual) Monocytes # (Manual) Eosinophils # (Manual) Basophils # (Manual) PT INR Fibrinogen dRVVT Confirm Interp Factor V Activity POC ABG pH POC ABG pCO2 POC ABG pO2 ABG pO2 ABG HCO3 ABG Base Excess ABG Hemoglobin 6.9 L Oxyhemoglobin Sodium Potassium Chloride Carbon Dioxide BUN 58 H Creatinine 1.8 H Glucose 146 H POC Glucose 151 H Lactic Acid Calcium Phosphorus Magnesium Direct Bilirubin AST ALT Alkaline Phosphatase Lactate Dehydrogenase Troponin T C-Reactive Protein Total Protein Albumin Prealbumin Triglycerides Cholesterol LDL Cholesterol Direct HDL Cholesterol Urine pH Urine WBC (Auto) Urine Creatinine Urine Total Protein Fluid Total Protein Vancomycin Trough Rheumatoid Factor Complement C4 Miscellaneous Test Crossmatch 12/01/16 12/01/16 12/01/16 03:35 05:47 11:52 WBC 12.3 H RBC 2.82 L Hgb 7.8 L Hct 23.7 L MCV MCH MCHC RDW 16.7 H Plt Count Lymph % (Auto) [place] % (Auto) 9.8 H Lymph # [place] # 1.2 H Baso # Seg Neutrophils % Seg Neuts % (Manual) Lymphocytes % (Manual) Monocytes % (Manual) Eosinophils % (Manual) Basophils % (Manual) Nucleated RBC % Seg Neutrophils # 8.4 H Seg Neutrophils # Man Lymphocytes # (Manual) Monocytes # (Manual) Eosinophils # (Manual) Basophils # (Manual) PT INR Fibrinogen dRVVT Confirm Interp Factor V Activity POC ABG pH POC ABG pCO2 POC ABG pO2 ABG pO2 ABG HCO3 ABG Base Excess ABG Hemoglobin Oxyhemoglobin Sodium Potassium Chloride Carbon Dioxide BUN Creatinine Glucose POC Glucose 152 H 152 H Lactic Acid Calcium Phosphorus Magnesium Direct Bilirubin AST ALT Alkaline Phosphatase Lactate Dehydrogenase Troponin T C-Reactive Protein Total Protein Albumin Prealbumin Triglycerides Cholesterol LDL Cholesterol Direct HDL Cholesterol Urine pH Urine WBC (Auto) Urine Creatinine Urine Total Protein Fluid Total Protein Vancomycin Trough Rheumatoid Factor Complement C4 Miscellaneous Test Crossmatch 12/01/16 12/01/16 12/02/16 17:40 23:41 05:00 WBC RBC Hgb Hct MCV MCH MCHC RDW Plt Count Lymph % (Auto) [place] % (Auto) Lymph # [place] # Baso # Seg Neutrophils % Seg Neuts % (Manual) Lymphocytes % (Manual) Monocytes % (Manual) Eosinophils % (Manual) Basophils % (Manual) Nucleated RBC % Seg Neutrophils # Seg Neutrophils # Man Lymphocytes # (Manual) Monocytes # (Manual) Eosinophils # (Manual) Basophils # (Manual) PT INR Fibrinogen dRVVT Confirm Interp Factor V Activity POC ABG pH POC ABG pCO2 POC ABG pO2 ABG pO2 ABG HCO3 ABG Base Excess ABG Hemoglobin Oxyhemoglobin Sodium Potassium Chloride Carbon Dioxide BUN 45 H Creatinine Glucose 115 H POC Glucose 140 H 144 H Lactic Acid Calcium Phosphorus Magnesium Direct Bilirubin AST ALT Alkaline Phosphatase Lactate Dehydrogenase Troponin T C-Reactive Protein Total Protein Albumin Prealbumin Triglycerides Cholesterol LDL Cholesterol Direct HDL Cholesterol Urine pH Urine WBC (Auto) Urine Creatinine Urine Total Protein Fluid Total Protein Vancomycin Trough Rheumatoid Factor Complement C4 Miscellaneous Test Crossmatch 12/02/16 12/02/16 12/02/16 05:31 11:20 17:38 WBC RBC Hgb Hct MCV MCH MCHC RDW Plt Count Lymph % (Auto) [place] % (Auto) Lymph # [place] # Baso # Seg Neutrophils % Seg Neuts % (Manual) Lymphocytes % (Manual) Monocytes % (Manual) Eosinophils % (Manual) Basophils % (Manual) Nucleated RBC % Seg Neutrophils # Seg Neutrophils # Man Lymphocytes # (Manual) Monocytes # (Manual) Eosinophils # (Manual) Basophils # (Manual) PT INR Fibrinogen dRVVT Confirm Interp Factor V Activity POC ABG pH POC ABG pCO2 POC ABG pO2 ABG pO2 ABG HCO3 ABG Base Excess ABG Hemoglobin Oxyhemoglobin Sodium Potassium Chloride Carbon Dioxide BUN Creatinine Glucose POC Glucose 136 H 177 H 139 H Lactic Acid Calcium Phosphorus Magnesium Direct Bilirubin AST ALT Alkaline Phosphatase Lactate Dehydrogenase Troponin T C-Reactive Protein Total Protein Albumin Prealbumin Triglycerides Cholesterol LDL Cholesterol Direct HDL Cholesterol Urine pH Urine WBC (Auto) Urine Creatinine Urine Total Protein Fluid Total Protein Vancomycin Trough Rheumatoid Factor Complement C4 Miscellaneous Test Crossmatch 12/02/16 12/03/16 12/03/16 23:43 04:00 04:00 WBC 20.4 H RBC 2.74 L Hgb 7.4 L Hct 23.6 L MCV MCH 27 L MCHC RDW 17.1 H Plt Count Lymph % (Auto) [place] % (Auto) Lymph # [place] # Baso # Seg Neutrophils % Seg Neuts % (Manual) 31.0 L Lymphocytes % (Manual) Monocytes % (Manual) Eosinophils % (Manual) Basophils % (Manual) Nucleated RBC % Seg Neutrophils # Seg Neutrophils # Man Lymphocytes # (Manual) Monocytes # (Manual) Eosinophils # (Manual) Basophils # (Manual) PT INR Fibrinogen dRVVT Confirm Interp Factor V Activity POC ABG pH POC ABG pCO2 POC ABG pO2 ABG pO2 ABG HCO3 ABG Base Excess ABG Hemoglobin Oxyhemoglobin Sodium Potassium Chloride Carbon Dioxide BUN 61 H Creatinine 1.6 H Glucose 119 H POC Glucose 158 H Lactic Acid Calcium Phosphorus Magnesium Direct Bilirubin AST ALT Alkaline Phosphatase Lactate Dehydrogenase Troponin T C-Reactive Protein Total Protein Albumin Prealbumin Triglycerides Cholesterol LDL Cholesterol Direct HDL Cholesterol Urine pH Urine WBC (Auto) Urine Creatinine Urine Total Protein Fluid Total Protein Vancomycin Trough Rheumatoid Factor Complement C4 Miscellaneous Test Crossmatch 12/03/16 12/03/16 12/03/16 05:02 12:11 18:16 WBC RBC Hgb Hct MCV MCH MCHC RDW Plt Count Lymph % (Auto) [place] % (Auto) Lymph # [place] # Baso # Seg Neutrophils % Seg Neuts % (Manual) Lymphocytes % (Manual) Monocytes % (Manual) Eosinophils % (Manual) Basophils % (Manual) Nucleated RBC % Seg Neutrophils # Seg Neutrophils # Man Lymphocytes # (Manual) Monocytes # (Manual) Eosinophils # (Manual) Basophils # (Manual) PT INR Fibrinogen dRVVT Confirm Interp Factor V Activity POC ABG pH POC ABG pCO2 POC ABG pO2 ABG pO2 ABG HCO3 ABG Base Excess ABG Hemoglobin Oxyhemoglobin Sodium Potassium Chloride Carbon Dioxide BUN Creatinine Glucose POC Glucose 146 H 157 H 124 H Lactic Acid Calcium Phosphorus Magnesium Direct Bilirubin AST ALT Alkaline Phosphatase Lactate Dehydrogenase Troponin T C-Reactive Protein Total Protein Albumin Prealbumin Triglycerides Cholesterol LDL Cholesterol Direct HDL Cholesterol Urine pH Urine WBC (Auto) Urine Creatinine Urine Total Protein Fluid Total Protein Vancomycin Trough Rheumatoid Factor Complement C4 Miscellaneous Test Crossmatch 12/03/16 12/04/16 12/04/16 23:41 04:00 04:45 WBC RBC Hgb Hct MCV MCH MCHC RDW Plt Count Lymph % (Auto) [place] % (Auto) Lymph # [place] # Baso # Seg Neutrophils % Seg Neuts % (Manual) Lymphocytes % (Manual) Monocytes % (Manual) Eosinophils % (Manual) Basophils % (Manual) Nucleated RBC % Seg Neutrophils # Seg Neutrophils # Man Lymphocytes # (Manual) Monocytes # (Manual) Eosinophils # (Manual) Basophils # (Manual) PT INR Fibrinogen dRVVT Confirm Interp Factor V Activity POC ABG pH POC ABG pCO2 POC ABG pO2 ABG pO2 ABG HCO3 ABG Base Excess ABG Hemoglobin Oxyhemoglobin Sodium Potassium Chloride Carbon Dioxide BUN 76 H Creatinine 1.6 H Glucose POC Glucose 130 H 136 H Lactic Acid Calcium Phosphorus Magnesium Direct Bilirubin AST ALT Alkaline Phosphatase 155 H Lactate Dehydrogenase Troponin T C-Reactive Protein Total Protein 5.5 L Albumin 1.5 L Prealbumin Triglycerides Cholesterol LDL Cholesterol Direct HDL Cholesterol Urine pH Urine WBC (Auto) Urine Creatinine Urine Total Protein Fluid Total Protein Vancomycin Trough Rheumatoid Factor Complement C4 Miscellaneous Test Crossmatch 12/04/16 12/04/16 12/05/16 12:08 17:23 00:10 WBC RBC Hgb Hct MCV MCH MCHC RDW Plt Count Lymph % (Auto) [place] % (Auto) Lymph # [place] # Baso # Seg Neutrophils % Seg Neuts % (Manual) Lymphocytes % (Manual) Monocytes % (Manual) Eosinophils % (Manual) Basophils % (Manual) Nucleated RBC % Seg Neutrophils # Seg Neutrophils # Man Lymphocytes # (Manual) Monocytes # (Manual) Eosinophils # (Manual) Basophils # (Manual) PT INR Fibrinogen dRVVT Confirm Interp Factor V Activity POC ABG pH POC ABG pCO2 POC ABG pO2 ABG pO2 ABG HCO3 ABG Base Excess ABG Hemoglobin Oxyhemoglobin Sodium Potassium Chloride Carbon Dioxide BUN Creatinine Glucose POC Glucose 114 H 129 H 124 H Lactic Acid Calcium Phosphorus Magnesium Direct Bilirubin AST ALT Alkaline Phosphatase Lactate Dehydrogenase Troponin T C-Reactive Protein Total Protein Albumin Prealbumin Triglycerides Cholesterol LDL Cholesterol Direct HDL Cholesterol Urine pH Urine WBC (Auto) Urine Creatinine Urine Total Protein Fluid Total Protein Vancomycin Trough Rheumatoid Factor Complement C4 Miscellaneous Test Crossmatch 12/05/16 12/05/16 12/05/16 05:00 05:00 05:18 WBC RBC Hgb Hct MCV MCH MCHC RDW Plt Count Lymph % (Auto) [place] % (Auto) Lymph # [place] # Baso # Seg Neutrophils % Seg Neuts % (Manual) Lymphocytes % (Manual) Monocytes % (Manual) Eosinophils % (Manual) Basophils % (Manual) Nucleated RBC % Seg Neutrophils # Seg Neutrophils # Man Lymphocytes # (Manual) Monocytes # (Manual) Eosinophils # (Manual) Basophils # (Manual) PT INR Fibrinogen dRVVT Confirm Interp Factor V Activity POC ABG pH POC ABG pCO2 POC ABG pO2 ABG pO2 ABG HCO3 ABG Base Excess ABG Hemoglobin Oxyhemoglobin Sodium Potassium Chloride Carbon Dioxide 21 L BUN 85 H Creatinine 1.9 H Glucose 131 H POC Glucose 154 H Lactic Acid Calcium Phosphorus Magnesium Direct Bilirubin AST ALT Alkaline Phosphatase Lactate Dehydrogenase Troponin T C-Reactive Protein 19.30 H Total Protein Albumin Prealbumin Triglycerides Cholesterol LDL Cholesterol Direct HDL Cholesterol Urine pH Urine WBC (Auto) Urine Creatinine Urine Total Protein Fluid Total Protein Vancomycin Trough Rheumatoid Factor Complement C4 Miscellaneous Test Crossmatch 12/05/16 12/05/16 12/05/16 11:43 17:46 23:25 WBC RBC Hgb Hct MCV MCH MCHC RDW Plt Count Lymph % (Auto) [place] % (Auto) Lymph # [place] # Baso # Seg Neutrophils % Seg Neuts % (Manual) Lymphocytes % (Manual) Monocytes % (Manual) Eosinophils % (Manual) Basophils % (Manual) Nucleated RBC % Seg Neutrophils # Seg Neutrophils # Man Lymphocytes # (Manual) Monocytes # (Manual) Eosinophils # (Manual) Basophils # (Manual) PT INR Fibrinogen dRVVT Confirm Interp Factor V Activity POC ABG pH POC ABG pCO2 POC ABG pO2 ABG pO2 ABG HCO3 ABG Base Excess ABG Hemoglobin Oxyhemoglobin Sodium Potassium Chloride Carbon Dioxide BUN Creatinine Glucose POC Glucose 117 H 113 H 111 H Lactic Acid Calcium Phosphorus Magnesium Direct Bilirubin AST ALT Alkaline Phosphatase Lactate Dehydrogenase Troponin T C-Reactive Protein Total Protein Albumin Prealbumin Triglycerides Cholesterol LDL Cholesterol Direct HDL Cholesterol Urine pH Urine WBC (Auto) Urine Creatinine Urine Total Protein Fluid Total Protein Vancomycin Trough Rheumatoid Factor Complement C4 Miscellaneous Test Crossmatch 12/05/16 12/06/16 12/06/16 Unknown 04:58 06:00 WBC RBC Hgb Hct MCV MCH MCHC RDW Plt Count Lymph % (Auto) [place] % (Auto) Lymph # [place] # Baso # Seg Neutrophils % Seg Neuts % (Manual) Lymphocytes % (Manual) Monocytes % (Manual) Eosinophils % (Manual) Basophils % (Manual) Nucleated RBC % Seg Neutrophils # Seg Neutrophils # Man Lymphocytes # (Manual) Monocytes # (Manual) Eosinophils # (Manual) Basophils # (Manual) PT INR Fibrinogen dRVVT Confirm Interp Factor V Activity POC ABG pH POC ABG pCO2 POC ABG pO2 ABG pO2 75.2 L ABG HCO3 ABG Base Excess -3.4 L ABG Hemoglobin 7.4 L Oxyhemoglobin 94.5 L Sodium Potassium Chloride Carbon Dioxide 20 L BUN 99 H Creatinine 2.1 H Glucose 126 H POC Glucose 145 H Lactic Acid Calcium Phosphorus 4.80 H Magnesium Direct Bilirubin AST ALT Alkaline Phosphatase Lactate Dehydrogenase Troponin T C-Reactive Protein Total Protein Albumin Prealbumin Triglycerides Cholesterol LDL Cholesterol Direct HDL Cholesterol Urine pH Urine WBC (Auto) Urine Creatinine Urine Total Protein Fluid Total Protein Vancomycin Trough Rheumatoid Factor Complement C4 Miscellaneous Test Crossmatch 12/06/16 12/06/16 12/06/16 06:46 11:54 17:55 WBC RBC Hgb 8.3 L Hct 26.4 L MCV MCH MCHC RDW Plt Count Lymph % (Auto) [place] % (Auto) Lymph # [place] # Baso # Seg Neutrophils % Seg Neuts % (Manual) Lymphocytes % (Manual) Monocytes % (Manual) Eosinophils % (Manual) Basophils % (Manual) Nucleated RBC % Seg Neutrophils # Seg Neutrophils # Man Lymphocytes # (Manual) Monocytes # (Manual) Eosinophils # (Manual) Basophils # (Manual) PT INR Fibrinogen dRVVT Confirm Interp Factor V Activity POC ABG pH POC ABG pCO2 POC ABG pO2 ABG pO2 ABG HCO3 ABG Base Excess ABG Hemoglobin Oxyhemoglobin Sodium Potassium Chloride Carbon Dioxide BUN Creatinine Glucose POC Glucose 126 H 157 H Lactic Acid Calcium Phosphorus Magnesium Direct Bilirubin AST ALT Alkaline Phosphatase Lactate Dehydrogenase Troponin T C-Reactive Protein Total Protein Albumin Prealbumin Triglycerides Cholesterol LDL Cholesterol Direct HDL Cholesterol Urine pH Urine WBC (Auto) Urine Creatinine Urine Total Protein Fluid Total Protein Vancomycin Trough Rheumatoid Factor Complement C4 Miscellaneous Test Crossmatch 12/06/16 12/07/16 12/07/16 23:59 05:34 06:30 WBC RBC Hgb Hct MCV MCH MCHC RDW Plt Count Lymph % (Auto) [place] % (Auto) Lymph # [place] # Baso # Seg Neutrophils % Seg Neuts % (Manual) Lymphocytes % (Manual) Monocytes % (Manual) Eosinophils % (Manual) Basophils % (Manual) Nucleated RBC % Seg Neutrophils # Seg Neutrophils # Man Lymphocytes # (Manual) Monocytes # (Manual) Eosinophils # (Manual) Basophils # (Manual) PT INR Fibrinogen dRVVT Confirm Interp Factor V Activity POC ABG pH POC ABG pCO2 POC ABG pO2 ABG pO2 ABG HCO3 ABG Base Excess ABG Hemoglobin Oxyhemoglobin Sodium Potassium Chloride Carbon Dioxide BUN 67 H Creatinine 1.4 H Glucose 126 H POC Glucose 129 H 129 H Lactic Acid Calcium Phosphorus Magnesium Direct Bilirubin AST ALT Alkaline Phosphatase Lactate Dehydrogenase Troponin T C-Reactive Protein Total Protein Albumin Prealbumin Triglycerides Cholesterol LDL Cholesterol Direct HDL Cholesterol Urine pH Urine WBC (Auto) Urine Creatinine Urine Total Protein Fluid Total Protein Vancomycin Trough Rheumatoid Factor Complement C4 Miscellaneous Test Crossmatch 12/07/16 12/07/16 12/07/16 06:30 08:00 09:45 WBC 18.8 H RBC 2.52 L Hgb 6.9 L 6.8 L Hct 21.2 L 21.1 L MCV MCH 27 L MCHC RDW 18.0 H Plt Count Lymph % (Auto) [place] % (Auto) 9.9 H Lymph # [place] # 1.9 H Baso # Seg Neutrophils % 71.8 H Seg Neuts % (Manual) Lymphocytes % (Manual) Monocytes % (Manual) Eosinophils % (Manual) Basophils % (Manual) Nucleated RBC % Seg Neutrophils # 13.5 H Seg Neutrophils # Man Lymphocytes # (Manual) Monocytes # (Manual) Eosinophils # (Manual) Basophils # (Manual) PT INR Fibrinogen dRVVT Confirm Interp Factor V Activity POC ABG pH POC ABG pCO2 POC ABG pO2 ABG pO2 ABG HCO3 ABG Base Excess ABG Hemoglobin Oxyhemoglobin Sodium Potassium Chloride Carbon Dioxide BUN Creatinine Glucose POC Glucose Lactic Acid Calcium Phosphorus Magnesium Direct Bilirubin AST ALT Alkaline Phosphatase Lactate Dehydrogenase Troponin T C-Reactive Protein Total Protein Albumin Prealbumin Triglycerides Cholesterol LDL Cholesterol Direct HDL Cholesterol Urine pH Urine WBC (Auto) Urine Creatinine Urine Total Protein Fluid Total Protein Vancomycin Trough Rheumatoid Factor Complement C4 Miscellaneous Test Crossmatch See Detail 12/07/16 12/07/16 12/07/16 11:44 18:19 23:59 WBC RBC Hgb Hct MCV MCH MCHC RDW Plt Count Lymph % (Auto) [place] % (Auto) Lymph # [place] # Baso # Seg Neutrophils % Seg Neuts % (Manual) Lymphocytes % (Manual) Monocytes % (Manual) Eosinophils % (Manual) Basophils % (Manual) Nucleated RBC % Seg Neutrophils # Seg Neutrophils # Man Lymphocytes # (Manual) Monocytes # (Manual) Eosinophils # (Manual) Basophils # (Manual) PT INR Fibrinogen dRVVT Confirm Interp Factor V Activity POC ABG pH POC ABG pCO2 POC ABG pO2 ABG pO2 ABG HCO3 ABG Base Excess ABG Hemoglobin Oxyhemoglobin Sodium Potassium Chloride Carbon Dioxide BUN Creatinine Glucose POC Glucose 137 H 138 H 133 H Lactic Acid Calcium Phosphorus Magnesium Direct Bilirubin AST ALT Alkaline Phosphatase Lactate Dehydrogenase Troponin T C-Reactive Protein Total Protein Albumin Prealbumin Triglycerides Cholesterol LDL Cholesterol Direct HDL Cholesterol Urine pH Urine WBC (Auto) Urine Creatinine Urine Total Protein Fluid Total Protein Vancomycin Trough Rheumatoid Factor Complement C4 Miscellaneous Test Crossmatch 12/08/16 12/08/16 12/08/16 05:25 05:30 05:30 WBC 23.8 H RBC 2.88 L Hgb 8.1 L Hct 24.3 L MCV MCH MCHC RDW 16.7 H Plt Count Lymph % (Auto) [place] % (Auto) Lymph # [place] # Baso # Seg Neutrophils % Seg Neuts % (Manual) 76.0 H Lymphocytes % (Manual) 9.0 L Monocytes % (Manual) 9.0 H Eosinophils % (Manual) Basophils % (Manual) Nucleated RBC % Seg Neutrophils # Seg Neutrophils # Man 18.1 H Lymphocytes # (Manual) Monocytes # (Manual) 2.1 H Eosinophils # (Manual) Basophils # (Manual) PT INR Fibrinogen dRVVT Confirm Interp Factor V Activity POC ABG pH POC ABG pCO2 POC ABG pO2 ABG pO2 ABG HCO3 ABG Base Excess ABG Hemoglobin Oxyhemoglobin Sodium Potassium Chloride Carbon Dioxide 21 L BUN 76 H Creatinine 1.6 H Glucose 133 H POC Glucose 177 H Lactic Acid Calcium Phosphorus Magnesium Direct Bilirubin AST ALT Alkaline Phosphatase Lactate Dehydrogenase Troponin T C-Reactive Protein Total Protein Albumin Prealbumin Triglycerides Cholesterol LDL Cholesterol Direct HDL Cholesterol Urine pH Urine WBC (Auto) Urine Creatinine Urine Total Protein Fluid Total Protein Vancomycin Trough Rheumatoid Factor Complement C4 Miscellaneous Test Crossmatch 12/08/16 12/08/16 12/09/16 11:45 18:00 00:00 WBC RBC Hgb Hct MCV MCH MCHC RDW Plt Count Lymph % (Auto) [place] % (Auto) Lymph # [place] # Baso # Seg Neutrophils % Seg Neuts % (Manual) Lymphocytes % (Manual) Monocytes % (Manual) Eosinophils % (Manual) Basophils % (Manual) Nucleated RBC % Seg Neutrophils # Seg Neutrophils # Man Lymphocytes # (Manual) Monocytes # (Manual) Eosinophils # (Manual) Basophils # (Manual) PT INR Fibrinogen dRVVT Confirm Interp Factor V Activity POC ABG pH POC ABG pCO2 POC ABG pO2 ABG pO2 ABG HCO3 ABG Base Excess ABG Hemoglobin Oxyhemoglobin Sodium Potassium Chloride Carbon Dioxide BUN Creatinine Glucose POC Glucose 163 H 123 H 137 H Lactic Acid Calcium Phosphorus Magnesium Direct Bilirubin AST ALT Alkaline Phosphatase Lactate Dehydrogenase Troponin T C-Reactive Protein Total Protein Albumin Prealbumin Triglycerides Cholesterol LDL Cholesterol Direct HDL Cholesterol Urine pH Urine WBC (Auto) Urine Creatinine Urine Total Protein Fluid Total Protein Vancomycin Trough Rheumatoid Factor Complement C4 Miscellaneous Test Crossmatch 12/09/16 12/09/16 12/09/16 05:34 06:00 06:00 WBC 15.5 H RBC 2.87 L Hgb 8.0 L Hct 24.2 L MCV MCH MCHC RDW 17.2 H Plt Count Lymph % (Auto) [place] % (Auto) 11.6 H Lymph # [place] # 1.8 H Baso # Seg Neutrophils % 70.8 H Seg Neuts % (Manual) Lymphocytes % (Manual) Monocytes % (Manual) Eosinophils % (Manual) Basophils % (Manual) Nucleated RBC % Seg Neutrophils # 11.0 H Seg Neutrophils # Man Lymphocytes # (Manual) Monocytes # (Manual) Eosinophils # (Manual) Basophils # (Manual) PT INR Fibrinogen dRVVT Confirm Interp Factor V Activity POC ABG pH POC ABG pCO2 POC ABG pO2 ABG pO2 ABG HCO3 ABG Base Excess ABG Hemoglobin Oxyhemoglobin Sodium Potassium Chloride Carbon Dioxide BUN 51 H Creatinine Glucose 117 H POC Glucose 136 H Lactic Acid Calcium Phosphorus Magnesium Direct Bilirubin AST ALT Alkaline Phosphatase Lactate Dehydrogenase Troponin T C-Reactive Protein Total Protein Albumin Prealbumin Triglycerides Cholesterol LDL Cholesterol Direct HDL Cholesterol Urine pH Urine WBC (Auto) Urine Creatinine Urine Total Protein Fluid Total Protein Vancomycin Trough Rheumatoid Factor Complement C4 Miscellaneous Test Crossmatch 12/09/16 12/09/16 12/09/16 12:29 17:52 23:10 WBC RBC Hgb Hct MCV MCH MCHC RDW Plt Count Lymph % (Auto) [place] % (Auto) Lymph # [place] # Baso # Seg Neutrophils % Seg Neuts % (Manual) Lymphocytes % (Manual) Monocytes % (Manual) Eosinophils % (Manual) Basophils % (Manual) Nucleated RBC % Seg Neutrophils # Seg Neutrophils # Man Lymphocytes # (Manual) Monocytes # (Manual) Eosinophils # (Manual) Basophils # (Manual) PT INR Fibrinogen dRVVT Confirm Interp Factor V Activity POC ABG pH POC ABG pCO2 POC ABG pO2 ABG pO2 ABG HCO3 ABG Base Excess ABG Hemoglobin Oxyhemoglobin Sodium Potassium Chloride Carbon Dioxide BUN Creatinine Glucose POC Glucose 139 H 140 H 129 H Lactic Acid Calcium Phosphorus Magnesium Direct Bilirubin AST ALT Alkaline Phosphatase Lactate Dehydrogenase Troponin T C-Reactive Protein Total Protein Albumin Prealbumin Triglycerides Cholesterol LDL Cholesterol Direct HDL Cholesterol Urine pH Urine WBC (Auto) Urine Creatinine Urine Total Protein Fluid Total Protein Vancomycin Trough Rheumatoid Factor Complement C4 Miscellaneous Test Crossmatch 10/12/10/16 12/10/16 05:00 05:00 06:54 WBC 15.7 H RBC 2.87 L Hgb 8.2 L Hct 24.4 L MCV MCH MCHC RDW 17.2 H Plt Count Lymph % (Auto) [place] % (Auto) 8.3 H Lymph # [place] # 1.3 H Baso # Seg Neutrophils % 72.8 H Seg Neuts % (Manual) Lymphocytes % (Manual) Monocytes % (Manual) Eosinophils % (Manual) Basophils % (Manual) Nucleated RBC % Seg Neutrophils # 11.4 H Seg Neutrophils # Man Lymphocytes # (Manual) Monocytes # (Manual) Eosinophils # (Manual) Basophils # (Manual) PT INR Fibrinogen dRVVT Confirm Interp Factor V Activity POC ABG pH POC ABG pCO2 POC ABG pO2 ABG pO2 ABG HCO3 ABG Base Excess ABG Hemoglobin Oxyhemoglobin Sodium Potassium Chloride Carbon Dioxide BUN 64 H Creatinine 1.4 H Glucose 134 H POC Glucose 154 H Lactic Acid Calcium Phosphorus Magnesium Direct Bilirubin AST ALT Alkaline Phosphatase Lactate Dehydrogenase Troponin T C-Reactive Protein Total Protein Albumin Prealbumin Triglycerides Cholesterol LDL Cholesterol Direct HDL Cholesterol Urine pH Urine WBC (Auto) Urine Creatinine Urine Total Protein Fluid Total Protein Vancomycin Trough Rheumatoid Factor Complement C4 Miscellaneous Test Crossmatch 12/10/16 12/10/16 12/10/16 11:58 17:29 23:52 WBC RBC Hgb Hct MCV MCH MCHC RDW Plt Count Lymph % (Auto) [place] % (Auto) Lymph # [place] # Baso # Seg Neutrophils % Seg Neuts % (Manual) Lymphocytes % (Manual) Monocytes % (Manual) Eosinophils % (Manual) Basophils % (Manual) Nucleated RBC % Seg Neutrophils # Seg Neutrophils # Man Lymphocytes # (Manual) Monocytes # (Manual) Eosinophils # (Manual) Basophils # (Manual) PT INR Fibrinogen dRVVT Confirm Interp Factor V Activity POC ABG pH POC ABG pCO2 POC ABG pO2 ABG pO2 ABG HCO3 ABG Base Excess ABG Hemoglobin Oxyhemoglobin Sodium Potassium Chloride Carbon Dioxide BUN Creatinine Glucose POC Glucose 144 H 163 H 125 H Lactic Acid Calcium Phosphorus Magnesium Direct Bilirubin AST ALT Alkaline Phosphatase Lactate Dehydrogenase Troponin T C-Reactive Protein Total Protein Albumin Prealbumin Triglycerides Cholesterol LDL Cholesterol Direct HDL Cholesterol Urine pH Urine WBC (Auto) Urine Creatinine Urine Total Protein Fluid Total Protein Vancomycin Trough Rheumatoid Factor Complement C4 Miscellaneous Test Crossmatch 12/11/16 12/11/1617 05:38 06:30 06:30 WBC 14.4 H RBC 2.76 L Hgb 7.7 L Hct 23.4 L MCV MCH MCHC RDW 17.2 H Plt Count Lymph % (Auto) [place] % (Auto) 8.8 H Lymph # [place] # 1.3 H Baso # Seg Neutrophils % 72.5 H Seg Neuts % (Manual) Lymphocytes % (Manual) Monocytes % (Manual) Eosinophils % (Manual) Basophils % (Manual) Nucleated RBC % Seg Neutrophils # 10.5 H Seg Neutrophils # Man Lymphocytes # (Manual) Monocytes # (Manual) Eosinophils # (Manual) Basophils # (Manual) PT INR Fibrinogen dRVVT Confirm Interp Factor V Activity POC ABG pH POC ABG pCO2 POC ABG pO2 ABG pO2 ABG HCO3 ABG Base Excess ABG Hemoglobin Oxyhemoglobin Sodium Potassium Chloride Carbon Dioxide BUN 43 H Creatinine Glucose 124 H POC Glucose 141 H Lactic Acid Calcium 8.3 L Phosphorus Magnesium 1.60 L Direct Bilirubin AST ALT Alkaline Phosphatase Lactate Dehydrogenase Troponin T C-Reactive Protein Total Protein Albumin Prealbumin Triglycerides Cholesterol LDL Cholesterol Direct HDL Cholesterol Urine pH Urine WBC (Auto) Urine Creatinine Urine Total Protein Fluid Total Protein Vancomycin Trough Rheumatoid Factor Complement C4 Miscellaneous Test Crossmatch 12/11/16 12/11/16 12/11/16 11:15 17:59 23:48 WBC RBC Hgb Hct MCV MCH MCHC RDW Plt Count Lymph % (Auto) [place] % (Auto) Lymph # [place] # Baso # Seg Neutrophils % Seg Neuts % (Manual) Lymphocytes % (Manual) Monocytes % (Manual) Eosinophils % (Manual) Basophils % (Manual) Nucleated RBC % Seg Neutrophils # Seg Neutrophils # Man Lymphocytes # (Manual) Monocytes # (Manual) Eosinophils # (Manual) Basophils # (Manual) PT INR Fibrinogen dRVVT Confirm Interp Factor V Activity POC ABG pH POC ABG pCO2 POC ABG pO2 ABG pO2 ABG HCO3 ABG Base Excess ABG Hemoglobin Oxyhemoglobin Sodium Potassium Chloride Carbon Dioxide BUN Creatinine Glucose POC Glucose 188 H 106 H 119 H Lactic Acid Calcium Phosphorus Magnesium Direct Bilirubin AST ALT Alkaline Phosphatase Lactate Dehydrogenase Troponin T C-Reactive Protein Total Protein Albumin Prealbumin Triglycerides Cholesterol LDL Cholesterol Direct HDL Cholesterol Urine pH Urine WBC (Auto) Urine Creatinine Urine Total Protein Fluid Total Protein Vancomycin Trough Rheumatoid Factor Complement C4 Miscellaneous Test Crossmatch 10/12/12/16 12/12/16 05:00 06:01 12:20 WBC 16.7 H RBC 2.87 L Hgb 8.0 L Hct 24.2 L MCV MCH MCHC RDW 17.6 H Plt Count Lymph % (Auto) [place] % (Auto) Lymph # [place] # 1.2 H Baso # Seg Neutrophils % 75.3 H Seg Neuts % (Manual) Lymphocytes % (Manual) Monocytes % (Manual) Eosinophils % (Manual) Basophils % (Manual) Nucleated RBC % Seg Neutrophils # 12.6 H Seg Neutrophils # Man Lymphocytes # (Manual) Monocytes # (Manual) Eosinophils # (Manual) Basophils # (Manual) PT INR Fibrinogen dRVVT Confirm Interp Factor V Activity POC ABG pH POC ABG pCO2 POC ABG pO2 ABG pO2 ABG HCO3 ABG Base Excess ABG Hemoglobin Oxyhemoglobin Sodium Potassium Chloride Carbon Dioxide BUN Creatinine Glucose POC Glucose 134 H 149 H Lactic Acid Calcium Phosphorus Magnesium Direct Bilirubin AST ALT Alkaline Phosphatase Lactate Dehydrogenase Troponin T C-Reactive Protein Total Protein Albumin Prealbumin Triglycerides Cholesterol LDL Cholesterol Direct HDL Cholesterol Urine pH Urine WBC (Auto) Urine Creatinine Urine Total Protein Fluid Total Protein Vancomycin Trough Rheumatoid Factor Complement C4 Miscellaneous Test Crossmatch 12/12/16 12/12/16 12/12/16 17:38 23:01 Unknown WBC RBC Hgb Hct MCV MCH MCHC RDW Plt Count Lymph % (Auto) [place] % (Auto) Lymph # [place] # Baso # Seg Neutrophils % Seg Neuts % (Manual) Lymphocytes % (Manual) Monocytes % (Manual) Eosinophils % (Manual) Basophils % (Manual) Nucleated RBC % Seg Neutrophils # Seg Neutrophils # Man Lymphocytes # (Manual) Monocytes # (Manual) Eosinophils # (Manual) Basophils # (Manual) PT INR Fibrinogen dRVVT Confirm Interp Factor V Activity POC ABG pH POC ABG pCO2 POC ABG pO2 ABG pO2 ABG HCO3 ABG Base Excess ABG Hemoglobin Oxyhemoglobin Sodium Potassium Chloride Carbon Dioxide BUN 60 H Creatinine 1.3 H Glucose 126 H POC Glucose 127 H 144 H Lactic Acid Calcium Phosphorus Magnesium Direct Bilirubin AST ALT Alkaline Phosphatase Lactate Dehydrogenase Troponin T C-Reactive Protein Total Protein Albumin Prealbumin Triglycerides Cholesterol LDL Cholesterol Direct HDL Cholesterol Urine pH Urine WBC (Auto) Urine Creatinine Urine Total Protein Fluid Total Protein Vancomycin Trough Rheumatoid Factor Complement C4 Miscellaneous Test Crossmatch 12/13/16 12/13/16 12/13/16 04:00 04:00 05:19 WBC 18.7 H RBC 2.89 L Hgb 8.3 L Hct 24.6 L MCV MCH MCHC RDW 17.5 H Plt Count Lymph % (Auto) [place] % (Auto) Lymph # [place] # 1.3 H Baso # Seg Neutrophils % 71.5 H Seg Neuts % (Manual) Lymphocytes % (Manual) Monocytes % (Manual) Eosinophils % (Manual) Basophils % (Manual) Nucleated RBC % Seg Neutrophils # 13.4 H Seg Neutrophils # Man Lymphocytes # (Manual) Monocytes # (Manual) Eosinophils # (Manual) Basophils # (Manual) PT INR Fibrinogen dRVVT Confirm Interp Factor V Activity POC ABG pH POC ABG pCO2 POC ABG pO2 ABG pO2 ABG HCO3 ABG Base Excess ABG Hemoglobin Oxyhemoglobin Sodium Potassium Chloride Carbon Dioxide BUN 73 H Creatinine 1.5 H Glucose 141 H POC Glucose 171 H Lactic Acid Calcium Phosphorus Magnesium Direct Bilirubin AST ALT Alkaline Phosphatase Lactate Dehydrogenase Troponin T C-Reactive Protein Total Protein Albumin Prealbumin Triglycerides Cholesterol LDL Cholesterol Direct HDL Cholesterol Urine pH Urine WBC (Auto) Urine Creatinine Urine Total Protein Fluid Total Protein Vancomycin Trough Rheumatoid Factor Complement C4 Miscellaneous Test Crossmatch 12/13/16 12/13/16 12/14/16 12:28 16:48 00:01 WBC RBC Hgb Hct MCV MCH MCHC RDW Plt Count Lymph % (Auto) [place] % (Auto) Lymph # [place] # Baso # Seg Neutrophils % Seg Neuts % (Manual) Lymphocytes % (Manual) Monocytes % (Manual) Eosinophils % (Manual) Basophils % (Manual) Nucleated RBC % Seg Neutrophils # Seg Neutrophils # Man Lymphocytes # (Manual) Monocytes # (Manual) Eosinophils # (Manual) Basophils # (Manual) PT INR Fibrinogen dRVVT Confirm Interp Factor V Activity POC ABG pH POC ABG pCO2 POC ABG pO2 ABG pO2 ABG HCO3 ABG Base Excess ABG Hemoglobin Oxyhemoglobin Sodium Potassium Chloride Carbon Dioxide BUN Creatinine Glucose POC Glucose 206 H 173 H 139 H Lactic Acid Calcium Phosphorus Magnesium Direct Bilirubin AST ALT Alkaline Phosphatase Lactate Dehydrogenase Troponin T C-Reactive Protein Total Protein Albumin Prealbumin Triglycerides Cholesterol LDL Cholesterol Direct HDL Cholesterol Urine pH Urine WBC (Auto) Urine Creatinine Urine Total Protein Fluid Total Protein Vancomycin Trough Rheumatoid Factor Complement C4 Miscellaneous Test Crossmatch 12/14/16 12/14/16 12/14/16 05:16 06:10 11:17 WBC RBC Hgb Hct MCV MCH MCHC RDW Plt Count Lymph % (Auto) [place] % (Auto) Lymph # [place] # Baso # Seg Neutrophils % Seg Neuts % (Manual) Lymphocytes % (Manual) Monocytes % (Manual) Eosinophils % (Manual) Basophils % (Manual) Nucleated RBC % Seg Neutrophils # Seg Neutrophils # Man Lymphocytes # (Manual) Monocytes # (Manual) Eosinophils # (Manual) Basophils # (Manual) PT INR Fibrinogen dRVVT Confirm Interp Factor V Activity POC ABG pH POC ABG pCO2 POC ABG pO2 ABG pO2 ABG HCO3 ABG Base Excess ABG Hemoglobin Oxyhemoglobin Sodium Potassium Chloride Carbon Dioxide BUN 57 H Creatinine 1.4 H Glucose 135 H POC Glucose 158 H 137 H Lactic Acid Calcium Phosphorus Magnesium Direct Bilirubin AST ALT Alkaline Phosphatase Lactate Dehydrogenase Troponin T C-Reactive Protein Total Protein Albumin Prealbumin Triglycerides Cholesterol LDL Cholesterol Direct HDL Cholesterol Urine pH Urine WBC (Auto) Urine Creatinine Urine Total Protein Fluid Total Protein Vancomycin Trough Rheumatoid Factor Complement C4 Miscellaneous Test Crossmatch 12/14/16 12/14/16 12/15/16 17:52 23:27 04:00 WBC RBC Hgb Hct MCV MCH MCHC RDW Plt Count Lymph % (Auto) [place] % (Auto) Lymph # [place] # Baso # Seg Neutrophils % Seg Neuts % (Manual) Lymphocytes % (Manual) Monocytes % (Manual) Eosinophils % (Manual) Basophils % (Manual) Nucleated RBC % Seg Neutrophils # Seg Neutrophils # Man Lymphocytes # (Manual) Monocytes # (Manual) Eosinophils # (Manual) Basophils # (Manual) PT INR Fibrinogen dRVVT Confirm Interp Factor V Activity POC ABG pH POC ABG pCO2 POC ABG pO2 ABG pO2 ABG HCO3 ABG Base Excess ABG Hemoglobin Oxyhemoglobin Sodium Potassium Chloride 97.9 L Carbon Dioxide BUN 75 H Creatinine 1.6 H Glucose 122 H POC Glucose 149 H 163 H Lactic Acid Calcium Phosphorus 5.20 H Magnesium Direct Bilirubin AST ALT Alkaline Phosphatase Lactate Dehydrogenase Troponin T C-Reactive Protein Total Protein Albumin Prealbumin Triglycerides Cholesterol LDL Cholesterol Direct HDL Cholesterol Urine pH Urine WBC (Auto) Urine Creatinine Urine Total Protein Fluid Total Protein Vancomycin Trough Rheumatoid Factor Complement C4 Miscellaneous Test Crossmatch 12/15/16 12/15/16 12/15/16 05:50 11:24 17:01 WBC RBC Hgb Hct MCV MCH MCHC RDW Plt Count Lymph % (Auto) [place] % (Auto) Lymph # [place] # Baso # Seg Neutrophils % Seg Neuts % (Manual) Lymphocytes % (Manual) Monocytes % (Manual) Eosinophils % (Manual) Basophils % (Manual) Nucleated RBC % Seg Neutrophils # Seg Neutrophils # Man Lymphocytes # (Manual) Monocytes # (Manual) Eosinophils # (Manual) Basophils # (Manual) PT INR Fibrinogen dRVVT Confirm Interp Factor V Activity POC ABG pH POC ABG pCO2 POC ABG pO2 ABG pO2 ABG HCO3 ABG Base Excess ABG Hemoglobin Oxyhemoglobin Sodium Potassium Chloride Carbon Dioxide BUN Creatinine Glucose POC Glucose 150 H 146 H 167 H Lactic Acid Calcium Phosphorus Magnesium Direct Bilirubin AST ALT Alkaline Phosphatase Lactate Dehydrogenase Troponin T C-Reactive Protein Total Protein Albumin Prealbumin Triglycerides Cholesterol LDL Cholesterol Direct HDL Cholesterol Urine pH Urine WBC (Auto) Urine Creatinine Urine Total Protein Fluid Total Protein Vancomycin Trough Rheumatoid Factor Complement C4 Miscellaneous Test Crossmatch 12/15/16 12/16/16 12/16/16 23:34 05:25 11:24 WBC RBC Hgb Hct MCV MCH MCHC RDW Plt Count Lymph % (Auto) [place] % (Auto) Lymph # [place] # Baso # Seg Neutrophils % Seg Neuts % (Manual) Lymphocytes % (Manual) Monocytes % (Manual) Eosinophils % (Manual) Basophils % (Manual) Nucleated RBC % Seg Neutrophils # Seg Neutrophils # Man Lymphocytes # (Manual) Monocytes # (Manual) Eosinophils # (Manual) Basophils # (Manual) PT INR Fibrinogen dRVVT Confirm Interp Factor V Activity POC ABG pH POC ABG pCO2 POC ABG pO2 ABG pO2 ABG HCO3 ABG Base Excess ABG Hemoglobin Oxyhemoglobin Sodium Potassium Chloride Carbon Dioxide BUN Creatinine Glucose POC Glucose 127 H 139 H 165 H Lactic Acid Calcium Phosphorus Magnesium Direct Bilirubin AST ALT Alkaline Phosphatase Lactate Dehydrogenase Troponin T C-Reactive Protein Total Protein Albumin Prealbumin Triglycerides Cholesterol LDL Cholesterol Direct HDL Cholesterol Urine pH Urine WBC (Auto) Urine Creatinine Urine Total Protein Fluid Total Protein Vancomycin Trough Rheumatoid Factor Complement C4 Miscellaneous Test Crossmatch 12/16/16 12/16/16 12/16/16 15:30 16:25 17:31 WBC 17.8 H RBC 2.38 L Hgb 6.4 L Hct 20.3 L MCV MCH 27 L MCHC RDW 17.4 H Plt Count Lymph % (Auto) [place] % (Auto) Lymph # [place] # Baso # Seg Neutrophils % Seg Neuts % (Manual) Lymphocytes % (Manual) Monocytes % (Manual) 10.0 H Eosinophils % (Manual) Basophils % (Manual) Nucleated RBC % Seg Neutrophils # Seg Neutrophils # Man 8.5 H Lymphocytes # (Manual) Monocytes # (Manual) 1.8 H Eosinophils # (Manual) Basophils # (Manual) PT INR Fibrinogen dRVVT Confirm Interp Factor V Activity POC ABG pH POC ABG pCO2 POC ABG pO2 ABG pO2 ABG HCO3 ABG Base Excess ABG Hemoglobin Oxyhemoglobin Sodium Potassium Chloride Carbon Dioxide BUN Creatinine Glucose POC Glucose 176 H Lactic Acid Calcium Phosphorus Magnesium Direct Bilirubin AST ALT Alkaline Phosphatase Lactate Dehydrogenase Troponin T C-Reactive Protein Total Protein Albumin Prealbumin Triglycerides Cholesterol LDL Cholesterol Direct HDL Cholesterol Urine pH Urine WBC (Auto) Urine Creatinine Urine Total Protein Fluid Total Protein Vancomycin Trough Rheumatoid Factor Complement C4 Miscellaneous Test Crossmatch See Detail 12/17/16 12/17/16 12/17/16 00:14 04:00 05:00 WBC 20.0 H RBC 2.99 L Hgb 8.5 L Hct 25.7 L MCV MCH MCHC RDW 17.2 H Plt Count Lymph % (Auto) [place] % (Auto) Lymph # [place] # Baso # Seg Neutrophils % Seg Neuts % (Manual) Lymphocytes % (Manual) Monocytes % (Manual) Eosinophils % (Manual) Basophils % (Manual) Nucleated RBC % Seg Neutrophils # Seg Neutrophils # Man Lymphocytes # (Manual) Monocytes # (Manual) Eosinophils # (Manual) Basophils # (Manual) PT INR Fibrinogen dRVVT Confirm Interp Factor V Activity POC ABG pH POC ABG pCO2 POC ABG pO2 ABG pO2 ABG HCO3 ABG Base Excess ABG Hemoglobin Oxyhemoglobin Sodium Potassium Chloride 97.7 L Carbon Dioxide BUN 73 H Creatinine 1.7 H Glucose 136 H POC Glucose 148 H Lactic Acid Calcium Phosphorus 2.20 L Magnesium 2.70 H Direct Bilirubin AST ALT Alkaline Phosphatase Lactate Dehydrogenase Troponin T C-Reactive Protein Total Protein Albumin Prealbumin Triglycerides Cholesterol LDL Cholesterol Direct HDL Cholesterol Urine pH Urine WBC (Auto) Urine Creatinine Urine Total Protein Fluid Total Protein Vancomycin Trough Rheumatoid Factor Complement C4 Miscellaneous Test Crossmatch 12/17/16 12/17/16 12/17/16 05:39 12:50 16:32 WBC RBC Hgb Hct MCV MCH MCHC RDW Plt Count Lymph % (Auto) [place] % (Auto) Lymph # [place] # Baso # Seg Neutrophils % Seg Neuts % (Manual) Lymphocytes % (Manual) Monocytes % (Manual) Eosinophils % (Manual) Basophils % (Manual) Nucleated RBC % Seg Neutrophils # Seg Neutrophils # Man Lymphocytes # (Manual) Monocytes # (Manual) Eosinophils # (Manual) Basophils # (Manual) PT INR Fibrinogen dRVVT Confirm Interp Factor V Activity POC ABG pH POC ABG pCO2 POC ABG pO2 ABG pO2 ABG HCO3 ABG Base Excess ABG Hemoglobin Oxyhemoglobin Sodium Potassium Chloride Carbon Dioxide BUN Creatinine Glucose POC Glucose 162 H 146 H 169 H Lactic Acid Calcium Phosphorus Magnesium Direct Bilirubin AST ALT Alkaline Phosphatase Lactate Dehydrogenase Troponin T C-Reactive Protein Total Protein Albumin Prealbumin Triglycerides Cholesterol LDL Cholesterol Direct HDL Cholesterol Urine pH Urine WBC (Auto) Urine Creatinine Urine Total Protein Fluid Total Protein Vancomycin Trough Rheumatoid Factor Complement C4 Miscellaneous Test Crossmatch 12/17/16 12/18/16 12/18/16 23:57 05:00 05:32 WBC RBC Hgb Hct MCV MCH MCHC RDW Plt Count Lymph % (Auto) [place] % (Auto) Lymph # [place] # Baso # Seg Neutrophils % Seg Neuts % (Manual) Lymphocytes % (Manual) Monocytes % (Manual) Eosinophils % (Manual) Basophils % (Manual) Nucleated RBC % Seg Neutrophils # Seg Neutrophils # Man Lymphocytes # (Manual) Monocytes # (Manual) Eosinophils # (Manual) Basophils # (Manual) PT INR Fibrinogen dRVVT Confirm Interp Factor V Activity POC ABG pH POC ABG pCO2 POC ABG pO2 ABG pO2 ABG HCO3 ABG Base Excess ABG Hemoglobin Oxyhemoglobin Sodium Potassium Chloride 97.0 L Carbon Dioxide BUN 63 H Creatinine 1.4 H Glucose 174 H POC Glucose 145 H 201 H Lactic Acid Calcium Phosphorus 1.70 L D Magnesium Direct Bilirubin AST ALT Alkaline Phosphatase 257 H Lactate Dehydrogenase Troponin T C-Reactive Protein Total Protein 5.9 L Albumin 1.8 L Prealbumin Triglycerides Cholesterol LDL Cholesterol Direct HDL Cholesterol Urine pH Urine WBC (Auto) Urine Creatinine Urine Total Protein Fluid Total Protein Vancomycin Trough Rheumatoid Factor Complement C4 Miscellaneous Test Crossmatch 12/18/16 12/18/16 12/18/16 11:43 16:52 23:52 WBC RBC Hgb Hct MCV MCH MCHC RDW Plt Count Lymph % (Auto) [place] % (Auto) Lymph # [place] # Baso # Seg Neutrophils % Seg Neuts % (Manual) Lymphocytes % (Manual) Monocytes % (Manual) Eosinophils % (Manual) Basophils % (Manual) Nucleated RBC % Seg Neutrophils # Seg Neutrophils # Man Lymphocytes # (Manual) Monocytes # (Manual) Eosinophils # (Manual) Basophils # (Manual) PT INR Fibrinogen dRVVT Confirm Interp Factor V Activity POC ABG pH POC ABG pCO2 POC ABG pO2 ABG pO2 ABG HCO3 ABG Base Excess ABG Hemoglobin Oxyhemoglobin Sodium Potassium Chloride Carbon Dioxide BUN Creatinine Glucose POC Glucose 177 H 110 H 162 H Lactic Acid Calcium Phosphorus Magnesium Direct Bilirubin AST ALT Alkaline Phosphatase Lactate Dehydrogenase Troponin T C-Reactive Protein Total Protein Albumin Prealbumin Triglycerides Cholesterol LDL Cholesterol Direct HDL Cholesterol Urine pH Urine WBC (Auto) Urine Creatinine Urine Total Protein Fluid Total Protein Vancomycin Trough Rheumatoid Factor Complement C4 Miscellaneous Test Crossmatch 12/19/16 12/19/16 12/19/16 05:02 05:24 09:30 WBC 20.1 H RBC 2.73 L Hgb 7.6 L Hct 23.6 L MCV MCH MCHC RDW 17.6 H Plt Count Lymph % (Auto) [place] % (Auto) Lymph # [place] # Baso # Seg Neutrophils % Seg Neuts % (Manual) Lymphocytes % (Manual) 13.0 L Monocytes % (Manual) Eosinophils % (Manual) Basophils % (Manual) Nucleated RBC % 1.0 H Seg Neutrophils # Seg Neutrophils # Man 12.9 H Lymphocytes # (Manual) Monocytes # (Manual) 1.4 H Eosinophils # (Manual) Basophils # (Manual) 0.2 H PT INR Fibrinogen dRVVT Confirm Interp Factor V Activity POC ABG pH POC ABG pCO2 POC ABG pO2 ABG pO2 ABG HCO3 ABG Base Excess ABG Hemoglobin Oxyhemoglobin Sodium Potassium Chloride 97.8 L Carbon Dioxide BUN 84 H Creatinine 1.6 H Glucose 133 H POC Glucose 134 H Lactic Acid Calcium Phosphorus Magnesium Direct Bilirubin AST ALT Alkaline Phosphatase Lactate Dehydrogenase Troponin T C-Reactive Protein Total Protein Albumin Prealbumin Triglycerides Cholesterol LDL Cholesterol Direct HDL Cholesterol Urine pH Urine WBC (Auto) Urine Creatinine Urine Total Protein Fluid Total Protein Vancomycin Trough Rheumatoid Factor Complement C4 Miscellaneous Test Crossmatch 12/19/16 12/19/16 12/19/16 09:36 11:12 18:29 WBC RBC Hgb Hct MCV MCH MCHC RDW Plt Count Lymph % (Auto) [place] % (Auto) Lymph # [place] # Baso # Seg Neutrophils % Seg Neuts % (Manual) Lymphocytes % (Manual) Monocytes % (Manual) Eosinophils % (Manual) Basophils % (Manual) Nucleated RBC % Seg Neutrophils # Seg Neutrophils # Man Lymphocytes # (Manual) Monocytes # (Manual) Eosinophils # (Manual) Basophils # (Manual) PT INR Fibrinogen dRVVT Confirm Interp Factor V Activity POC ABG pH 7.503 H POC ABG pCO2 30.1 L POC ABG pO2 ABG pO2 ABG HCO3 ABG Base Excess ABG Hemoglobin Oxyhemoglobin Sodium Potassium Chloride Carbon Dioxide BUN Creatinine Glucose POC Glucose 138 H 156 H Lactic Acid Calcium Phosphorus Magnesium Direct Bilirubin AST ALT Alkaline Phosphatase Lactate Dehydrogenase Troponin T C-Reactive Protein Total Protein Albumin Prealbumin Triglycerides Cholesterol LDL Cholesterol Direct HDL Cholesterol Urine pH Urine WBC (Auto) Urine Creatinine Urine Total Protein Fluid Total Protein Vancomycin Trough Rheumatoid Factor Complement C4 Miscellaneous Test Crossmatch 12/20/16 12/20/16 12/20/16 00:03 06:17 07:07 WBC RBC Hgb Hct MCV MCH MCHC RDW Plt Count Lymph % (Auto) [place] % (Auto) Lymph # [place] # Baso # Seg Neutrophils % Seg Neuts % (Manual) Lymphocytes % (Manual) Monocytes % (Manual) Eosinophils % (Manual) Basophils % (Manual) Nucleated RBC % Seg Neutrophils # Seg Neutrophils # Man Lymphocytes # (Manual) Monocytes # (Manual) Eosinophils # (Manual) Basophils # (Manual) PT INR Fibrinogen dRVVT Confirm Interp Factor V Activity POC ABG pH POC ABG pCO2 POC ABG pO2 ABG pO2 ABG HCO3 ABG Base Excess ABG Hemoglobin Oxyhemoglobin Sodium Potassium Chloride 97.1 L Carbon Dioxide 20 L BUN 97 H Creatinine 1.8 H Glucose 153 H POC Glucose 152 H 175 H Lactic Acid Calcium Phosphorus Magnesium Direct Bilirubin AST ALT Alkaline Phosphatase Lactate Dehydrogenase Troponin T C-Reactive Protein Total Protein Albumin Prealbumin Triglycerides Cholesterol LDL Cholesterol Direct HDL Cholesterol Urine pH Urine WBC (Auto) Urine Creatinine Urine Total Protein Fluid Total Protein Vancomycin Trough Rheumatoid Factor Complement C4 Miscellaneous Test Crossmatch 12/20/16 12/20/16 12/20/16 12:00 17:42 23:53 WBC RBC Hgb Hct MCV MCH MCHC RDW Plt Count Lymph % (Auto) [place] % (Auto) Lymph # [place] # Baso # Seg Neutrophils % Seg Neuts % (Manual) Lymphocytes % (Manual) Monocytes % (Manual) Eosinophils % (Manual) Basophils % (Manual) Nucleated RBC % Seg Neutrophils # Seg Neutrophils # Man Lymphocytes # (Manual) Monocytes # (Manual) Eosinophils # (Manual) Basophils # (Manual) PT INR Fibrinogen dRVVT Confirm Interp Factor V Activity POC ABG pH POC ABG pCO2 POC ABG pO2 ABG pO2 ABG HCO3 ABG Base Excess ABG Hemoglobin Oxyhemoglobin Sodium Potassium Chloride Carbon Dioxide BUN Creatinine Glucose POC Glucose 141 H 156 H 132 H Lactic Acid Calcium Phosphorus Magnesium Direct Bilirubin AST ALT Alkaline Phosphatase Lactate Dehydrogenase Troponin T C-Reactive Protein Total Protein Albumin Prealbumin Triglycerides Cholesterol LDL Cholesterol Direct HDL Cholesterol Urine pH Urine WBC (Auto) Urine Creatinine Urine Total Protein Fluid Total Protein Vancomycin Trough Rheumatoid Factor Complement C4 Miscellaneous Test Crossmatch 12/21/16 12/21/16 12/21/16 05:49 08:50 12:19 WBC RBC Hgb Hct MCV MCH MCHC RDW Plt Count Lymph % (Auto) [place] % (Auto) Lymph # [place] # Baso # Seg Neutrophils % Seg Neuts % (Manual) Lymphocytes % (Manual) Monocytes % (Manual) Eosinophils % (Manual) Basophils % (Manual) Nucleated RBC % Seg Neutrophils # Seg Neutrophils # Man Lymphocytes # (Manual) Monocytes # (Manual) Eosinophils # (Manual) Basophils # (Manual) PT INR Fibrinogen dRVVT Confirm Interp Factor V Activity POC ABG pH POC ABG pCO2 POC ABG pO2 ABG pO2 ABG HCO3 ABG Base Excess ABG Hemoglobin Oxyhemoglobin Sodium Potassium 5.2 H D Chloride Carbon Dioxide BUN 63 H Creatinine Glucose 122 H POC Glucose 132 H 136 H Lactic Acid Calcium 8.3 L Phosphorus Magnesium Direct Bilirubin AST ALT Alkaline Phosphatase Lactate Dehydrogenase Troponin T C-Reactive Protein Total Protein Albumin Prealbumin Triglycerides Cholesterol LDL Cholesterol Direct HDL Cholesterol Urine pH Urine WBC (Auto) Urine Creatinine Urine Total Protein Fluid Total Protein Vancomycin Trough Rheumatoid Factor Complement C4 Miscellaneous Test Crossmatch 12/21/16 12/21/16 12/22/16 17:22 23:58 05:49 WBC RBC Hgb Hct MCV MCH MCHC RDW Plt Count Lymph % (Auto) [place] % (Auto) Lymph # [place] # Baso # Seg Neutrophils % Seg Neuts % (Manual) Lymphocytes % (Manual) Monocytes % (Manual) Eosinophils % (Manual) Basophils % (Manual) Nucleated RBC % Seg Neutrophils # Seg Neutrophils # Man Lymphocytes # (Manual) Monocytes # (Manual) Eosinophils # (Manual) Basophils # (Manual) PT INR Fibrinogen dRVVT Confirm Interp Factor V Activity POC ABG pH POC ABG pCO2 POC ABG pO2 ABG pO2 ABG HCO3 ABG Base Excess ABG Hemoglobin Oxyhemoglobin Sodium Potassium Chloride Carbon Dioxide BUN Creatinine Glucose POC Glucose 135 H 149 H 140 H Lactic Acid Calcium Phosphorus Magnesium Direct Bilirubin AST ALT Alkaline Phosphatase Lactate Dehydrogenase Troponin T C-Reactive Protein Total Protein Albumin Prealbumin Triglycerides Cholesterol LDL Cholesterol Direct HDL Cholesterol Urine pH Urine WBC (Auto) Urine Creatinine Urine Total Protein Fluid Total Protein Vancomycin Trough Rheumatoid Factor Complement C4 Miscellaneous Test Crossmatch 12/22/16 12/22/16 12/22/16 06:10 11:17 17:31 WBC RBC Hgb Hct MCV MCH MCHC RDW Plt Count Lymph % (Auto) [place] % (Auto) Lymph # [place] # Baso # Seg Neutrophils % Seg Neuts % (Manual) Lymphocytes % (Manual) Monocytes % (Manual) Eosinophils % (Manual) Basophils % (Manual) Nucleated RBC % Seg Neutrophils # Seg Neutrophils # Man Lymphocytes # (Manual) Monocytes # (Manual) Eosinophils # (Manual) Basophils # (Manual) PT INR Fibrinogen dRVVT Confirm Interp Factor V Activity POC ABG pH POC ABG pCO2 POC ABG pO2 ABG pO2 ABG HCO3 ABG Base Excess ABG Hemoglobin Oxyhemoglobin Sodium Potassium Chloride Carbon Dioxide BUN 76 H Creatinine 1.5 H Glucose 241 H POC Glucose 193 H 148 H Lactic Acid Calcium Phosphorus Magnesium Direct Bilirubin AST ALT Alkaline Phosphatase Lactate Dehydrogenase Troponin T C-Reactive Protein Total Protein Albumin Prealbumin Triglycerides Cholesterol LDL Cholesterol Direct HDL Cholesterol Urine pH Urine WBC (Auto) Urine Creatinine Urine Total Protein Fluid Total Protein Vancomycin Trough Rheumatoid Factor Complement C4 Miscellaneous Test Crossmatch 12/22/16 12/23/16 12/23/16 23:58 05:00 05:26 WBC RBC Hgb Hct MCV MCH MCHC RDW Plt Count Lymph % (Auto) [place] % (Auto) Lymph # [place] # Baso # Seg Neutrophils % Seg Neuts % (Manual) Lymphocytes % (Manual) Monocytes % (Manual) Eosinophils % (Manual) Basophils % (Manual) Nucleated RBC % Seg Neutrophils # Seg Neutrophils # Man Lymphocytes # (Manual) Monocytes # (Manual) Eosinophils # (Manual) Basophils # (Manual) PT INR Fibrinogen dRVVT Confirm Interp Factor V Activity POC ABG pH POC ABG pCO2 POC ABG pO2 ABG pO2 ABG HCO3 ABG Base Excess ABG Hemoglobin Oxyhemoglobin Sodium Potassium Chloride Carbon Dioxide BUN 49 H Creatinine Glucose 143 H POC Glucose 165 H 154 H Lactic Acid Calcium 8.2 L Phosphorus Magnesium 1.60 L Direct Bilirubin AST ALT Alkaline Phosphatase Lactate Dehydrogenase Troponin T C-Reactive Protein Total Protein Albumin Prealbumin Triglycerides Cholesterol LDL Cholesterol Direct HDL Cholesterol Urine pH Urine WBC (Auto) Urine Creatinine Urine Total Protein Fluid Total Protein Vancomycin Trough Rheumatoid Factor Complement C4 Miscellaneous Test Crossmatch 12/23/16 12/23/16 12/24/16 12:35 17:01 00:01 WBC RBC Hgb Hct MCV MCH MCHC RDW Plt Count Lymph % (Auto) [place] % (Auto) Lymph # [place] # Baso # Seg Neutrophils % Seg Neuts % (Manual) Lymphocytes % (Manual) Monocytes % (Manual) Eosinophils % (Manual) Basophils % (Manual) Nucleated RBC % Seg Neutrophils # Seg Neutrophils # Man Lymphocytes # (Manual) Monocytes # (Manual) Eosinophils # (Manual) Basophils # (Manual) PT INR Fibrinogen dRVVT Confirm Interp Factor V Activity POC ABG pH POC ABG pCO2 POC ABG pO2 ABG pO2 ABG HCO3 ABG Base Excess ABG Hemoglobin Oxyhemoglobin Sodium Potassium Chloride Carbon Dioxide BUN Creatinine Glucose POC Glucose 164 H 149 H 135 H Lactic Acid Calcium Phosphorus Magnesium Direct Bilirubin AST ALT Alkaline Phosphatase Lactate Dehydrogenase Troponin T C-Reactive Protein Total Protein Albumin Prealbumin Triglycerides Cholesterol LDL Cholesterol Direct HDL Cholesterol Urine pH Urine WBC (Auto) Urine Creatinine Urine Total Protein Fluid Total Protein Vancomycin Trough Rheumatoid Factor Complement C4 Miscellaneous Test Crossmatch 12/24/16 12/24/16 12/24/16 05:41 07:01 11:38 WBC RBC Hgb Hct MCV MCH MCHC RDW Plt Count Lymph % (Auto) [place] % (Auto) Lymph # [place] # Baso # Seg Neutrophils % Seg Neuts % (Manual) Lymphocytes % (Manual) Monocytes % (Manual) Eosinophils % (Manual) Basophils % (Manual) Nucleated RBC % Seg Neutrophils # Seg Neutrophils # Man Lymphocytes # (Manual) Monocytes # (Manual) Eosinophils # (Manual) Basophils # (Manual) PT INR Fibrinogen dRVVT Confirm Interp Factor V Activity POC ABG pH POC ABG pCO2 POC ABG pO2 ABG pO2 ABG HCO3 ABG Base Excess ABG Hemoglobin Oxyhemoglobin Sodium Potassium Chloride Carbon Dioxide BUN 72 H Creatinine 1.3 H Glucose 130 H POC Glucose 132 H 156 H Lactic Acid Calcium 8.2 L Phosphorus Magnesium Direct Bilirubin AST ALT Alkaline Phosphatase Lactate Dehydrogenase Troponin T C-Reactive Protein Total Protein Albumin Prealbumin Triglycerides Cholesterol LDL Cholesterol Direct HDL Cholesterol Urine pH Urine WBC (Auto) Urine Creatinine Urine Total Protein Fluid Total Protein Vancomycin Trough Rheumatoid Factor Complement C4 Miscellaneous Test Crossmatch 12/24/16 12/25/16 12/25/16 17:53 00:23 05:45 WBC RBC Hgb Hct MCV MCH MCHC RDW Plt Count Lymph % (Auto) [place] % (Auto) Lymph # [place] # Baso # Seg Neutrophils % Seg Neuts % (Manual) Lymphocytes % (Manual) Monocytes % (Manual) Eosinophils % (Manual) Basophils % (Manual) Nucleated RBC % Seg Neutrophils # Seg Neutrophils # Man Lymphocytes # (Manual) Monocytes # (Manual) Eosinophils # (Manual) Basophils # (Manual) PT INR Fibrinogen dRVVT Confirm Interp Factor V Activity POC ABG pH POC ABG pCO2 POC ABG pO2 ABG pO2 ABG HCO3 ABG Base Excess ABG Hemoglobin Oxyhemoglobin Sodium 146 H Potassium Chloride Carbon Dioxide BUN 51 H Creatinine Glucose 109 H POC Glucose 169 H 117 H Lactic Acid Calcium Phosphorus Magnesium Direct Bilirubin AST ALT Alkaline Phosphatase Lactate Dehydrogenase Troponin T C-Reactive Protein Total Protein Albumin Prealbumin Triglycerides Cholesterol LDL Cholesterol Direct HDL Cholesterol Urine pH Urine WBC (Auto) Urine Creatinine Urine Total Protein Fluid Total Protein Vancomycin Trough Rheumatoid Factor Complement C4 Miscellaneous Test Crossmatch 12/25/16 12/25/16 12/25/16 06:43 11:29 17:14 WBC RBC Hgb Hct MCV MCH MCHC RDW Plt Count Lymph % (Auto) [place] % (Auto) Lymph # [place] # Baso # Seg Neutrophils % Seg Neuts % (Manual) Lymphocytes % (Manual) Monocytes % (Manual) Eosinophils % (Manual) Basophils % (Manual) Nucleated RBC % Seg Neutrophils # Seg Neutrophils # Man Lymphocytes # (Manual) Monocytes # (Manual) Eosinophils # (Manual) Basophils # (Manual) PT INR Fibrinogen dRVVT Confirm Interp Factor V Activity POC ABG pH POC ABG pCO2 POC ABG pO2 ABG pO2 ABG HCO3 ABG Base Excess ABG Hemoglobin Oxyhemoglobin Sodium Potassium Chloride Carbon Dioxide BUN Creatinine Glucose POC Glucose 117 H 128 H 120 H Lactic Acid Calcium Phosphorus Magnesium Direct Bilirubin AST ALT Alkaline Phosphatase Lactate Dehydrogenase Troponin T C-Reactive Protein Total Protein Albumin Prealbumin Triglycerides Cholesterol LDL Cholesterol Direct HDL Cholesterol Urine pH Urine WBC (Auto) Urine Creatinine Urine Total Protein Fluid Total Protein Vancomycin Trough Rheumatoid Factor Complement C4 Miscellaneous Test Crossmatch 12/25/16 12/26/16 12/26/16 23:54 05:40 05:50 WBC 16.2 H RBC 2.32 L Hgb 6.2 L Hct 20.1 L MCV MCH 27 L MCHC RDW 18.6 H Plt Count Lymph % (Auto) [place] % (Auto) Lymph # [place] # Baso # Seg Neutrophils % Seg Neuts % (Manual) Lymphocytes % (Manual) Monocytes % (Manual) Eosinophils % (Manual) Basophils % (Manual) Nucleated RBC % Seg Neutrophils # Seg Neutrophils # Man Lymphocytes # (Manual) Monocytes # (Manual) Eosinophils # (Manual) Basophils # (Manual) PT INR Fibrinogen dRVVT Confirm Interp Factor V Activity POC ABG pH POC ABG pCO2 POC ABG pO2 ABG pO2 ABG HCO3 ABG Base Excess ABG Hemoglobin Oxyhemoglobin Sodium Potassium Chloride Carbon Dioxide BUN Creatinine Glucose POC Glucose 126 H 132 H Lactic Acid Calcium Phosphorus Magnesium Direct Bilirubin AST ALT Alkaline Phosphatase Lactate Dehydrogenase Troponin T C-Reactive Protein Total Protein Albumin Prealbumin Triglycerides Cholesterol LDL Cholesterol Direct HDL Cholesterol Urine pH Urine WBC (Auto) Urine Creatinine Urine Total Protein Fluid Total Protein Vancomycin Trough Rheumatoid Factor Complement C4 Miscellaneous Test Crossmatch 12/26/16 12/26/16 12/26/16 05:50 12:17 12:33 WBC RBC Hgb Hct MCV MCH MCHC RDW Plt Count Lymph % (Auto) [place] % (Auto) Lymph # [place] # Baso # Seg Neutrophils % Seg Neuts % (Manual) Lymphocytes % (Manual) Monocytes % (Manual) Eosinophils % (Manual) Basophils % (Manual) Nucleated RBC % Seg Neutrophils # Seg Neutrophils # Man Lymphocytes # (Manual) Monocytes # (Manual) Eosinophils # (Manual) Basophils # (Manual) PT INR Fibrinogen dRVVT Confirm Interp Factor V Activity POC ABG pH POC ABG pCO2 POC ABG pO2 ABG pO2 ABG HCO3 ABG Base Excess ABG Hemoglobin Oxyhemoglobin Sodium Potassium Chloride Carbon Dioxide BUN 73 H Creatinine 1.3 H Glucose 113 H POC Glucose 117 H Lactic Acid Calcium Phosphorus Magnesium Direct Bilirubin AST ALT Alkaline Phosphatase Lactate Dehydrogenase Troponin T C-Reactive Protein Total Protein Albumin Prealbumin Triglycerides Cholesterol LDL Cholesterol Direct HDL Cholesterol Urine pH Urine WBC (Auto) Urine Creatinine Urine Total Protein Fluid Total Protein Vancomycin Trough Rheumatoid Factor Complement C4 Miscellaneous Test Crossmatch See Detail 12/26/16 12/26/1612/27/17 20:00 23:21 05:00 WBC RBC Hgb 8.4 L Hct 26.3 L D MCV MCH MCHC RDW Plt Count Lymph % (Auto) [place] % (Auto) Lymph # [place] # Baso # Seg Neutrophils % Seg Neuts % (Manual) Lymphocytes % (Manual) Monocytes % (Manual) Eosinophils % (Manual) Basophils % (Manual) Nucleated RBC % Seg Neutrophils # Seg Neutrophils # Man Lymphocytes # (Manual) Monocytes # (Manual) Eosinophils # (Manual) Basophils # (Manual) PT INR Fibrinogen dRVVT Confirm Interp Factor V Activity POC ABG pH POC ABG pCO2 POC ABG pO2 ABG pO2 ABG HCO3 ABG Base Excess ABG Hemoglobin Oxyhemoglobin Sodium Potassium Chloride Carbon Dioxide BUN 85 H Creatinine 1.6 H Glucose 118 H POC Glucose 124 H Lactic Acid Calcium Phosphorus 4.80 H Magnesium Direct Bilirubin AST ALT Alkaline Phosphatase Lactate Dehydrogenase Troponin T C-Reactive Protein Total Protein Albumin Prealbumin Triglycerides Cholesterol LDL Cholesterol Direct HDL Cholesterol Urine pH Urine WBC (Auto) Urine Creatinine Urine Total Protein Fluid Total Protein Vancomycin Trough Rheumatoid Factor Complement C4 Miscellaneous Test Crossmatch 12/27/16 12/27/16 12/27/16 05:00 05:35 12:24 WBC RBC Hgb 7.6 L Hct 22.8 L MCV MCH MCHC RDW Plt Count Lymph % (Auto) [place] % (Auto) Lymph # [place] # Baso # Seg Neutrophils % Seg Neuts % (Manual) Lymphocytes % (Manual) Monocytes % (Manual) Eosinophils % (Manual) Basophils % (Manual) Nucleated RBC % Seg Neutrophils # Seg Neutrophils # Man Lymphocytes # (Manual) Monocytes # (Manual) Eosinophils # (Manual) Basophils # (Manual) PT INR Fibrinogen dRVVT Confirm Interp Factor V Activity POC ABG pH POC ABG pCO2 POC ABG pO2 ABG pO2 ABG HCO3 ABG Base Excess ABG Hemoglobin Oxyhemoglobin Sodium Potassium Chloride Carbon Dioxide BUN Creatinine Glucose POC Glucose 115 H 131 H Lactic Acid Calcium Phosphorus Magnesium Direct Bilirubin AST ALT Alkaline Phosphatase Lactate Dehydrogenase Troponin T C-Reactive Protein Total Protein Albumin Prealbumin Triglycerides Cholesterol LDL Cholesterol Direct HDL Cholesterol Urine pH Urine WBC (Auto) Urine Creatinine Urine Total Protein Fluid Total Protein Vancomycin Trough Rheumatoid Factor Complement C4 Miscellaneous Test Crossmatch 12/27/16 12/28/16 12/28/16 17:16 00:18 04:00 WBC RBC Hgb Hct MCV MCH MCHC RDW Plt Count Lymph % (Auto) [place] % (Auto) Lymph # [place] # Baso # Seg Neutrophils % Seg Neuts % (Manual) Lymphocytes % (Manual) Monocytes % (Manual) Eosinophils % (Manual) Basophils % (Manual) Nucleated RBC % Seg Neutrophils # Seg Neutrophils # Man Lymphocytes # (Manual) Monocytes # (Manual) Eosinophils # (Manual) Basophils # (Manual) PT INR Fibrinogen dRVVT Confirm Interp Factor V Activity POC ABG pH POC ABG pCO2 POC ABG pO2 ABG pO2 ABG HCO3 ABG Base Excess ABG Hemoglobin Oxyhemoglobin Sodium Potassium 3.5 L Chloride Carbon Dioxide BUN 57 H Creatinine Glucose 118 H POC Glucose 136 H 120 H Lactic Acid Calcium 8.3 L Phosphorus Magnesium Direct Bilirubin AST ALT Alkaline Phosphatase Lactate Dehydrogenase Troponin T C-Reactive Protein Total Protein Albumin Prealbumin Triglycerides Cholesterol LDL Cholesterol Direct HDL Cholesterol Urine pH Urine WBC (Auto) Urine Creatinine Urine Total Protein Fluid Total Protein Vancomycin Trough Rheumatoid Factor Complement C4 Miscellaneous Test Crossmatch 12/28/16 12/28/16 12/28/16 04:00 05:11 08:30 WBC 17.0 H RBC 2.58 L Hgb 7.1 L Hct 22.0 L MCV MCH MCHC RDW 17.6 H Plt Count Lymph % (Auto) 12.2 L [place] % (Auto) Lymph # [place] # 1.1 H Baso # Seg Neutrophils % 80.5 H Seg Neuts % (Manual) Lymphocytes % (Manual) Monocytes % (Manual) Eosinophils % (Manual) Basophils % (Manual) Nucleated RBC % Seg Neutrophils # 13.7 H Seg Neutrophils # Man Lymphocytes # (Manual) Monocytes # (Manual) Eosinophils # (Manual) Basophils # (Manual) PT 16.1 H INR 1.23 H Fibrinogen dRVVT Confirm Interp Factor V Activity POC ABG pH POC ABG pCO2 POC ABG pO2 ABG pO2 ABG HCO3 ABG Base Excess ABG Hemoglobin Oxyhemoglobin Sodium Potassium Chloride Carbon Dioxide BUN Creatinine Glucose POC Glucose 122 H Lactic Acid Calcium Phosphorus Magnesium Direct Bilirubin AST ALT Alkaline Phosphatase Lactate Dehydrogenase Troponin T C-Reactive Protein Total Protein Albumin Prealbumin Triglycerides Cholesterol LDL Cholesterol Direct HDL Cholesterol Urine pH Urine WBC (Auto) Urine Creatinine Urine Total Protein Fluid Total Protein Vancomycin Trough Rheumatoid Factor Complement C4 Miscellaneous Test Crossmatch 11/08/17 11/08/17 11/08/17 12:27 16:32 23:46 WBC RBC Hgb Hct MCV MCH MCHC RDW Plt Count Lymph % (Auto) [place] % (Auto) Lymph # [place] # Baso # Seg Neutrophils % Seg Neuts % (Manual) Lymphocytes % (Manual) Monocytes % (Manual) Eosinophils % (Manual) Basophils % (Manual) Nucleated RBC % Seg Neutrophils # Seg Neutrophils # Man Lymphocytes # (Manual) Monocytes # (Manual) Eosinophils # (Manual) Basophils # (Manual) PT INR Fibrinogen dRVVT Confirm Interp Factor V Activity POC ABG pH POC ABG pCO2 POC ABG pO2 ABG pO2 ABG HCO3 ABG Base Excess ABG Hemoglobin Oxyhemoglobin Sodium Potassium Chloride Carbon Dioxide BUN Creatinine Glucose POC Glucose 127 H 117 H 108 H Lactic Acid Calcium Phosphorus Magnesium Direct Bilirubin AST ALT Alkaline Phosphatase Lactate Dehydrogenase Troponin T C-Reactive Protein Total Protein Albumin Prealbumin Triglycerides Cholesterol LDL Cholesterol Direct HDL Cholesterol Urine pH Urine WBC (Auto) Urine Creatinine Urine Total Protein Fluid Total Protein Vancomycin Trough Rheumatoid Factor Complement C4 Miscellaneous Test Crossmatch 12/29/16 12/29/16 12/29/16 05:15 05:15 05:32 WBC RBC Hgb Hct MCV MCH MCHC RDW Plt Count Lymph % (Auto) [place] % (Auto) Lymph # [place] # Baso # Seg Neutrophils % Seg Neuts % (Manual) Lymphocytes % (Manual) Monocytes % (Manual) Eosinophils % (Manual) Basophils % (Manual) Nucleated RBC % Seg Neutrophils # Seg Neutrophils # Man Lymphocytes # (Manual) Monocytes # (Manual) Eosinophils # (Manual) Basophils # (Manual) PT INR Fibrinogen dRVVT Confirm Interp Factor V Activity POC ABG pH POC ABG pCO2 POC ABG pO2 ABG pO2 ABG HCO3 ABG Base Excess ABG Hemoglobin Oxyhemoglobin Sodium Potassium Chloride Carbon Dioxide BUN 74 H Creatinine 1.6 H Glucose 111 H POC Glucose 123 H Lactic Acid Calcium Phosphorus Magnesium Direct Bilirubin AST ALT Alkaline Phosphatase Lactate Dehydrogenase Troponin T C-Reactive Protein Total Protein Albumin Prealbumin 0.110 L Triglycerides Cholesterol LDL Cholesterol Direct HDL Cholesterol Urine pH Urine WBC (Auto) Urine Creatinine Urine Total Protein Fluid Total Protein Vancomycin Trough Rheumatoid Factor Complement C4 Miscellaneous Test Crossmatch 12/29/16 12/29/16 12/29/16 11:43 13:45 14:00 WBC 13.8 H RBC 2.26 L Hgb 6.3 L Hct 20.4 L MCV MCH MCHC RDW 18.3 H Plt Count Lymph % (Auto) [place] % (Auto) Lymph # [place] # 0.9 H Baso # Seg Neutrophils % 78.6 H Seg Neuts % (Manual) Lymphocytes % (Manual) Monocytes % (Manual) Eosinophils % (Manual) Basophils % (Manual) Nucleated RBC % Seg Neutrophils # 10.8 H Seg Neutrophils # Man Lymphocytes # (Manual) Monocytes # (Manual) Eosinophils # (Manual) Basophils # (Manual) PT INR Fibrinogen dRVVT Confirm Interp Factor V Activity POC ABG pH POC ABG pCO2 POC ABG pO2 ABG pO2 ABG HCO3 ABG Base Excess ABG Hemoglobin Oxyhemoglobin Sodium Potassium Chloride Carbon Dioxide BUN Creatinine Glucose POC Glucose 133 H Lactic Acid Calcium Phosphorus Magnesium Direct Bilirubin AST ALT Alkaline Phosphatase Lactate Dehydrogenase Troponin T C-Reactive Protein Total Protein Albumin Prealbumin Triglycerides Cholesterol LDL Cholesterol Direct HDL Cholesterol Urine pH Urine WBC (Auto) Urine Creatinine Urine Total Protein Fluid Total Protein Vancomycin Trough Rheumatoid Factor Complement C4 Miscellaneous Test Crossmatch See Detail 12/29/16 12/29/16 12/29/16 17:03 23:15 23:22 WBC RBC Hgb 7.3 L Hct 22.3 L MCV MCH MCHC RDW Plt Count Lymph % (Auto) [place] % (Auto) Lymph # [place] # Baso # Seg Neutrophils % Seg Neuts % (Manual) Lymphocytes % (Manual) Monocytes % (Manual) Eosinophils % (Manual) Basophils % (Manual) Nucleated RBC % Seg Neutrophils # Seg Neutrophils # Man Lymphocytes # (Manual) Monocytes # (Manual) Eosinophils # (Manual) Basophils # (Manual) PT INR Fibrinogen dRVVT Confirm Interp Factor V Activity POC ABG pH POC ABG pCO2 POC ABG pO2 ABG pO2 ABG HCO3 ABG Base Excess ABG Hemoglobin Oxyhemoglobin Sodium Potassium Chloride Carbon Dioxide BUN Creatinine Glucose POC Glucose 139 H 120 H Lactic Acid Calcium Phosphorus Magnesium Direct Bilirubin AST ALT Alkaline Phosphatase Lactate Dehydrogenase Troponin T C-Reactive Protein Total Protein Albumin Prealbumin Triglycerides Cholesterol LDL Cholesterol Direct HDL Cholesterol Urine pH Urine WBC (Auto) Urine Creatinine Urine Total Protein Fluid Total Protein Vancomycin Trough Rheumatoid Factor Complement C4 Miscellaneous Test Crossmatch 12/30/16 12/30/16 12/30/16 04:20 04:20 05:43 WBC 15.6 H RBC 2.81 L Hgb 8.0 L Hct 24.0 L MCV MCH MCHC RDW 16.9 H Plt Count Lymph % (Auto) [place] % (Auto) Lymph # [place] # 1.0 H Baso # Seg Neutrophils % 76.2 H Seg Neuts % (Manual) Lymphocytes % (Manual) Monocytes % (Manual) Eosinophils % (Manual) Basophils % (Manual) Nucleated RBC % Seg Neutrophils # 11.9 H Seg Neutrophils # Man Lymphocytes # (Manual) Monocytes # (Manual) Eosinophils # (Manual) Basophils # (Manual) PT INR Fibrinogen dRVVT Confirm Interp Factor V Activity POC ABG pH POC ABG pCO2 POC ABG pO2 ABG pO2 ABG HCO3 ABG Base Excess ABG Hemoglobin Oxyhemoglobin Sodium Potassium Chloride Carbon Dioxide BUN 87 H Creatinine 1.8 H Glucose 119 H POC Glucose 115 H Lactic Acid Calcium Phosphorus Magnesium Direct Bilirubin AST ALT Alkaline Phosphatase Lactate Dehydrogenase Troponin T C-Reactive Protein Total Protein Albumin Prealbumin Triglycerides Cholesterol LDL Cholesterol Direct HDL Cholesterol Urine pH Urine WBC (Auto) Urine Creatinine Urine Total Protein Fluid Total Protein Vancomycin Trough Rheumatoid Factor Complement C4 Miscellaneous Test Crossmatch 12/30/16 12/30/16 12/31/16 17:27 23:21 04:00 WBC RBC Hgb Hct MCV MCH MCHC RDW Plt Count Lymph % (Auto) [place] % (Auto) Lymph # [place] # Baso # Seg Neutrophils % Seg Neuts % (Manual) Lymphocytes % (Manual) Monocytes % (Manual) Eosinophils % (Manual) Basophils % (Manual) Nucleated RBC % Seg Neutrophils # Seg Neutrophils # Man Lymphocytes # (Manual) Monocytes # (Manual) Eosinophils # (Manual) Basophils # (Manual) PT INR Fibrinogen dRVVT Confirm Interp Factor V Activity POC ABG pH POC ABG pCO2 POC ABG pO2 ABG pO2 ABG HCO3 ABG Base Excess ABG Hemoglobin Oxyhemoglobin Sodium Potassium Chloride Carbon Dioxide BUN 59 H Creatinine Glucose 298 H POC Glucose 144 H 125 H Lactic Acid Calcium Phosphorus Magnesium Direct Bilirubin AST ALT Alkaline Phosphatase Lactate Dehydrogenase Troponin T C-Reactive Protein Total Protein Albumin Prealbumin Triglycerides Cholesterol LDL Cholesterol Direct HDL Cholesterol Urine pH Urine WBC (Auto) Urine Creatinine Urine Total Protein Fluid Total Protein Vancomycin Trough Rheumatoid Factor Complement C4 Miscellaneous Test Crossmatch 12/31/16 12/31/16 12/31/16 05:11 12:18 18:17 WBC RBC Hgb Hct MCV MCH MCHC RDW Plt Count Lymph % (Auto) [place] % (Auto) Lymph # [place] # Baso # Seg Neutrophils % Seg Neuts % (Manual) Lymphocytes % (Manual) Monocytes % (Manual) Eosinophils % (Manual) Basophils % (Manual) Nucleated RBC % Seg Neutrophils # Seg Neutrophils # Man Lymphocytes # (Manual) Monocytes # (Manual) Eosinophils # (Manual) Basophils # (Manual) PT INR Fibrinogen dRVVT Confirm Interp Factor V Activity POC ABG pH POC ABG pCO2 POC ABG pO2 ABG pO2 ABG HCO3 ABG Base Excess ABG Hemoglobin Oxyhemoglobin Sodium Potassium Chloride Carbon Dioxide BUN Creatinine Glucose POC Glucose 167 H 125 H 133 H Lactic Acid Calcium Phosphorus Magnesium Direct Bilirubin AST ALT Alkaline Phosphatase Lactate Dehydrogenase Troponin T C-Reactive Protein Total Protein Albumin Prealbumin Triglycerides Cholesterol LDL Cholesterol Direct HDL Cholesterol Urine pH Urine WBC (Auto) Urine Creatinine Urine Total Protein Fluid Total Protein Vancomycin Trough Rheumatoid Factor Complement C4 Miscellaneous Test Crossmatch 12/31/16 01/01/17 01/01/17 23:55 05:00 05:12 WBC RBC Hgb Hct MCV MCH MCHC RDW Plt Count Lymph % (Auto) [place] % (Auto) Lymph # [place] # Baso # Seg Neutrophils % Seg Neuts % (Manual) Lymphocytes % (Manual) Monocytes % (Manual) Eosinophils % (Manual) Basophils % (Manual) Nucleated RBC % Seg Neutrophils # Seg Neutrophils # Man Lymphocytes # (Manual) Monocytes # (Manual) Eosinophils # (Manual) Basophils # (Manual) PT INR Fibrinogen dRVVT Confirm Interp Factor V Activity POC ABG pH POC ABG pCO2 POC ABG pO2 ABG pO2 ABG HCO3 ABG Base Excess ABG Hemoglobin Oxyhemoglobin Sodium Potassium Chloride Carbon Dioxide BUN 76 H Creatinine 1.5 H Glucose 109 H POC Glucose 129 H 129 H Lactic Acid Calcium Phosphorus Magnesium Direct Bilirubin AST ALT Alkaline Phosphatase 536 H Lactate Dehydrogenase Troponin T C-Reactive Protein Total Protein Albumin 1.5 L Prealbumin Triglycerides Cholesterol LDL Cholesterol Direct HDL Cholesterol Urine pH Urine WBC (Auto) Urine Creatinine Urine Total Protein Fluid Total Protein Vancomycin Trough Rheumatoid Factor Complement C4 Miscellaneous Test Crossmatch 01/01/17 01/01/17 01/01/17 12:25 17:01 23:32 WBC RBC Hgb Hct MCV MCH MCHC RDW Plt Count Lymph % (Auto) [place] % (Auto) Lymph # [place] # Baso # Seg Neutrophils % Seg Neuts % (Manual) Lymphocytes % (Manual) Monocytes % (Manual) Eosinophils % (Manual) Basophils % (Manual) Nucleated RBC % Seg Neutrophils # Seg Neutrophils # Man Lymphocytes # (Manual) Monocytes # (Manual) Eosinophils # (Manual) Basophils # (Manual) PT INR Fibrinogen dRVVT Confirm Interp Factor V Activity POC ABG pH POC ABG pCO2 POC ABG pO2 ABG pO2 ABG HCO3 ABG Base Excess ABG Hemoglobin Oxyhemoglobin Sodium Potassium Chloride Carbon Dioxide BUN Creatinine Glucose POC Glucose 140 H 142 H 112 H Lactic Acid Calcium Phosphorus Magnesium Direct Bilirubin AST ALT Alkaline Phosphatase Lactate Dehydrogenase Troponin T C-Reactive Protein Total Protein Albumin Prealbumin Triglycerides Cholesterol LDL Cholesterol Direct HDL Cholesterol Urine pH Urine WBC (Auto) Urine Creatinine Urine Total Protein Fluid Total Protein Vancomycin Trough Rheumatoid Factor Complement C4 Miscellaneous Test Crossmatch 01/02/17 01/02/17 01/02/17 04:56 06:00 11:37 WBC RBC Hgb Hct MCV MCH MCHC RDW Plt Count Lymph % (Auto) [place] % (Auto) Lymph # [place] # Baso # Seg Neutrophils % Seg Neuts % (Manual) Lymphocytes % (Manual) Monocytes % (Manual) Eosinophils % (Manual) Basophils % (Manual) Nucleated RBC % Seg Neutrophils # Seg Neutrophils # Man Lymphocytes # (Manual) Monocytes # (Manual) Eosinophils # (Manual) Basophils # (Manual) PT INR Fibrinogen dRVVT Confirm Interp Factor V Activity POC ABG pH POC ABG pCO2 POC ABG pO2 ABG pO2 ABG HCO3 ABG Base Excess ABG Hemoglobin Oxyhemoglobin Sodium Potassium Chloride Carbon Dioxide BUN 88 H Creatinine 1.7 H Glucose 113 H POC Glucose 136 H 200 H Lactic Acid Calcium Phosphorus Magnesium Direct Bilirubin AST ALT Alkaline Phosphatase Lactate Dehydrogenase Troponin T C-Reactive Protein Total Protein Albumin Prealbumin Triglycerides Cholesterol LDL Cholesterol Direct HDL Cholesterol Urine pH Urine WBC (Auto) Urine Creatinine Urine Total Protein Fluid Total Protein Vancomycin Trough Rheumatoid Factor Complement C4 Miscellaneous Test Crossmatch 01/02/17 01/02/17 01/03/17 17:42 22:52 04:54 WBC RBC Hgb Hct MCV MCH MCHC RDW Plt Count Lymph % (Auto) [place] % (Auto) Lymph # [place] # Baso # Seg Neutrophils % Seg Neuts % (Manual) Lymphocytes % (Manual) Monocytes % (Manual) Eosinophils % (Manual) Basophils % (Manual) Nucleated RBC % Seg Neutrophils # Seg Neutrophils # Man Lymphocytes # (Manual) Monocytes # (Manual) Eosinophils # (Manual) Basophils # (Manual) PT INR Fibrinogen dRVVT Confirm Interp Factor V Activity POC ABG pH POC ABG pCO2 POC ABG pO2 ABG pO2 ABG HCO3 ABG Base Excess ABG Hemoglobin Oxyhemoglobin Sodium Potassium Chloride Carbon Dioxide BUN Creatinine Glucose POC Glucose 112 H 133 H 111 H Lactic Acid Calcium Phosphorus Magnesium Direct Bilirubin AST ALT Alkaline Phosphatase Lactate Dehydrogenase Troponin T C-Reactive Protein Total Protein Albumin Prealbumin Triglycerides Cholesterol LDL Cholesterol Direct HDL Cholesterol Urine pH Urine WBC (Auto) Urine Creatinine Urine Total Protein Fluid Total Protein Vancomycin Trough Rheumatoid Factor Complement C4 Miscellaneous Test Crossmatch 01/03/17 01/03/17 01/03/17 05:00 05:00 14:02 WBC 11.2 H RBC 2.56 L Hgb 7.2 L Hct 22.3 L MCV MCH MCHC RDW 17.3 H Plt Count Lymph % (Auto) [place] % (Auto) 10.0 H Lymph # [place] # 1.1 H Baso # Seg Neutrophils % 70.5 H Seg Neuts % (Manual) Lymphocytes % (Manual) Monocytes % (Manual) Eosinophils % (Manual) Basophils % (Manual) Nucleated RBC % Seg Neutrophils # 7.9 H Seg Neutrophils # Man Lymphocytes # (Manual) Monocytes # (Manual) Eosinophils # (Manual) Basophils # (Manual) PT INR Fibrinogen dRVVT Confirm Interp Factor V Activity POC ABG pH POC ABG pCO2 POC ABG pO2 ABG pO2 ABG HCO3 ABG Base Excess ABG Hemoglobin Oxyhemoglobin Sodium Potassium Chloride Carbon Dioxide BUN 60 H Creatinine 1.3 H Glucose 110 H POC Glucose 119 H Lactic Acid Calcium Phosphorus Magnesium Direct Bilirubin AST ALT Alkaline Phosphatase Lactate Dehydrogenase Troponin T C-Reactive Protein Total Protein Albumin Prealbumin Triglycerides Cholesterol LDL Cholesterol Direct HDL Cholesterol Urine pH Urine WBC (Auto) Urine Creatinine Urine Total Protein Fluid Total Protein Vancomycin Trough Rheumatoid Factor Complement C4 Miscellaneous Test Crossmatch 01/03/17 01/03/17 01/04/17 18:13 23:40 05:57 WBC RBC Hgb Hct MCV MCH MCHC RDW Plt Count Lymph % (Auto) [place] % (Auto) Lymph # [place] # Baso # Seg Neutrophils % Seg Neuts % (Manual) Lymphocytes % (Manual) Monocytes % (Manual) Eosinophils % (Manual) Basophils % (Manual) Nucleated RBC % Seg Neutrophils # Seg Neutrophils # Man Lymphocytes # (Manual) Monocytes # (Manual) Eosinophils # (Manual) Basophils # (Manual) PT INR Fibrinogen dRVVT Confirm Interp Factor V Activity POC ABG pH POC ABG pCO2 POC ABG pO2 ABG pO2 ABG HCO3 ABG Base Excess ABG Hemoglobin Oxyhemoglobin Sodium Potassium Chloride Carbon Dioxide BUN Creatinine Glucose POC Glucose 107 H 129 H 111 H Lactic Acid Calcium Phosphorus Magnesium Direct Bilirubin AST ALT Alkaline Phosphatase Lactate Dehydrogenase Troponin T C-Reactive Protein Total Protein Albumin Prealbumin Triglycerides Cholesterol LDL Cholesterol Direct HDL Cholesterol Urine pH Urine WBC (Auto) Urine Creatinine Urine Total Protein Fluid Total Protein Vancomycin Trough Rheumatoid Factor Complement C4 Miscellaneous Test Crossmatch 01/04/17 01/04/17 01/04/17 12:46 15:27 17:11 WBC RBC Hgb Hct MCV MCH MCHC RDW Plt Count Lymph % (Auto) [place] % (Auto) Lymph # [place] # Baso # Seg Neutrophils % Seg Neuts % (Manual) Lymphocytes % (Manual) Monocytes % (Manual) Eosinophils % (Manual) Basophils % (Manual) Nucleated RBC % Seg Neutrophils # Seg Neutrophils # Man Lymphocytes # (Manual) Monocytes # (Manual) Eosinophils # (Manual) Basophils # (Manual) PT INR Fibrinogen dRVVT Confirm Interp Factor V Activity POC ABG pH POC ABG pCO2 POC ABG pO2 ABG pO2 ABG HCO3 ABG Base Excess ABG Hemoglobin Oxyhemoglobin Sodium Potassium Chloride Carbon Dioxide BUN 43 H Creatinine Glucose 124 H POC Glucose 159 H 125 H Lactic Acid Calcium 8.0 L Phosphorus 2.10 L Magnesium Direct Bilirubin AST ALT Alkaline Phosphatase Lactate Dehydrogenase Troponin T C-Reactive Protein Total Protein Albumin Prealbumin Triglycerides Cholesterol LDL Cholesterol Direct HDL Cholesterol Urine pH Urine WBC (Auto) Urine Creatinine Urine Total Protein Fluid Total Protein Vancomycin Trough Rheumatoid Factor Complement C4 Miscellaneous Test Crossmatch 01/04/17 01/05/17 01/05/17 23:31 04:00 05:46 WBC RBC Hgb Hct MCV MCH MCHC RDW Plt Count Lymph % (Auto) [place] % (Auto) Lymph # [place] # Baso # Seg Neutrophils % Seg Neuts % (Manual) Lymphocytes % (Manual) Monocytes % (Manual) Eosinophils % (Manual) Basophils % (Manual) Nucleated RBC % Seg Neutrophils # Seg Neutrophils # Man Lymphocytes # (Manual) Monocytes # (Manual) Eosinophils # (Manual) Basophils # (Manual) PT INR Fibrinogen dRVVT Confirm Interp Factor V Activity POC ABG pH POC ABG pCO2 POC ABG pO2 ABG pO2 ABG HCO3 ABG Base Excess ABG Hemoglobin Oxyhemoglobin Sodium Potassium Chloride Carbon Dioxide BUN 52 H Creatinine 1.3 H Glucose 113 H POC Glucose 123 H 118 H Lactic Acid Calcium Phosphorus 2.40 L Magnesium Direct Bilirubin AST ALT Alkaline Phosphatase Lactate Dehydrogenase Troponin T C-Reactive Protein Total Protein Albumin Prealbumin Triglycerides Cholesterol LDL Cholesterol Direct HDL Cholesterol Urine pH Urine WBC (Auto) Urine Creatinine Urine Total Protein Fluid Total Protein Vancomycin Trough Rheumatoid Factor Complement C4 Miscellaneous Test Crossmatch 01/05/17 01/05/17 01/05/17 11:41 17:48 23:27 WBC RBC Hgb Hct MCV MCH MCHC RDW Plt Count Lymph % (Auto) [place] % (Auto) Lymph # [place] # Baso # Seg Neutrophils % Seg Neuts % (Manual) Lymphocytes % (Manual) Monocytes % (Manual) Eosinophils % (Manual) Basophils % (Manual) Nucleated RBC % Seg Neutrophils # Seg Neutrophils # Man Lymphocytes # (Manual) Monocytes # (Manual) Eosinophils # (Manual) Basophils # (Manual) PT INR Fibrinogen dRVVT Confirm Interp Factor V Activity POC ABG pH POC ABG pCO2 POC ABG pO2 ABG pO2 ABG HCO3 ABG Base Excess ABG Hemoglobin Oxyhemoglobin Sodium Potassium Chloride Carbon Dioxide BUN Creatinine Glucose POC Glucose 163 H 142 H 155 H Lactic Acid Calcium Phosphorus Magnesium Direct Bilirubin AST ALT Alkaline Phosphatase Lactate Dehydrogenase Troponin T C-Reactive Protein Total Protein Albumin Prealbumin Triglycerides Cholesterol LDL Cholesterol Direct HDL Cholesterol Urine pH Urine WBC (Auto) Urine Creatinine Urine Total Protein Fluid Total Protein Vancomycin Trough Rheumatoid Factor Complement C4 Miscellaneous Test Crossmatch 01/06/17 01/06/17 01/06/17 05:20 07:35 11:18 WBC RBC Hgb Hct MCV MCH MCHC RDW Plt Count Lymph % (Auto) [place] % (Auto) Lymph # [place] # Baso # Seg Neutrophils % Seg Neuts % (Manual) Lymphocytes % (Manual) Monocytes % (Manual) Eosinophils % (Manual) Basophils % (Manual) Nucleated RBC % Seg Neutrophils # Seg Neutrophils # Man Lymphocytes # (Manual) Monocytes # (Manual) Eosinophils # (Manual) Basophils # (Manual) PT INR Fibrinogen dRVVT Confirm Interp Factor V Activity POC ABG pH POC ABG pCO2 POC ABG pO2 ABG pO2 ABG HCO3 ABG Base Excess ABG Hemoglobin Oxyhemoglobin Sodium Potassium Chloride Carbon Dioxide BUN 74 H Creatinine 1.6 H Glucose 135 H POC Glucose 108 H 149 H Lactic Acid Calcium Phosphorus Magnesium Direct Bilirubin AST ALT Alkaline Phosphatase Lactate Dehydrogenase Troponin T C-Reactive Protein Total Protein Albumin Prealbumin Triglycerides Cholesterol LDL Cholesterol Direct HDL Cholesterol Urine pH Urine WBC (Auto) Urine Creatinine Urine Total Protein Fluid Total Protein Vancomycin Trough Rheumatoid Factor Complement C4 Miscellaneous Test Crossmatch 01/06/17 01/07/17 01/07/17 17:17 00:23 05:31 WBC RBC Hgb Hct MCV MCH MCHC RDW Plt Count Lymph % (Auto) [place] % (Auto) Lymph # [place] # Baso # Seg Neutrophils % Seg Neuts % (Manual) Lymphocytes % (Manual) Monocytes % (Manual) Eosinophils % (Manual) Basophils % (Manual) Nucleated RBC % Seg Neutrophils # Seg Neutrophils # Man Lymphocytes # (Manual) Monocytes # (Manual) Eosinophils # (Manual) Basophils # (Manual) PT INR Fibrinogen dRVVT Confirm Interp Factor V Activity POC ABG pH POC ABG pCO2 POC ABG pO2 ABG pO2 ABG HCO3 ABG Base Excess ABG Hemoglobin Oxyhemoglobin Sodium Potassium Chloride Carbon Dioxide BUN Creatinine Glucose POC Glucose 146 H 165 H 153 H Lactic Acid Calcium Phosphorus Magnesium Direct Bilirubin AST ALT Alkaline Phosphatase Lactate Dehydrogenase Troponin T C-Reactive Protein Total Protein Albumin Prealbumin Triglycerides Cholesterol LDL Cholesterol Direct HDL Cholesterol Urine pH Urine WBC (Auto) Urine Creatinine Urine Total Protein Fluid Total Protein Vancomycin Trough Rheumatoid Factor Complement C4 Miscellaneous Test Crossmatch 01/07/17 01/07/17 01/07/17 06:00 11:39 17:11 WBC RBC Hgb Hct MCV MCH MCHC RDW Plt Count Lymph % (Auto) [place] % (Auto) Lymph # [place] # Baso # Seg Neutrophils % Seg Neuts % (Manual) Lymphocytes % (Manual) Monocytes % (Manual) Eosinophils % (Manual) Basophils % (Manual) Nucleated RBC % Seg Neutrophils # Seg Neutrophils # Man Lymphocytes # (Manual) Monocytes # (Manual) Eosinophils # (Manual) Basophils # (Manual) PT INR Fibrinogen dRVVT Confirm Interp Factor V Activity POC ABG pH POC ABG pCO2 POC ABG pO2 ABG pO2 ABG HCO3 ABG Base Excess ABG Hemoglobin Oxyhemoglobin Sodium Potassium Chloride Carbon Dioxide BUN 42 H Creatinine Glucose 175 H POC Glucose 163 H 163 H Lactic Acid Calcium Phosphorus 2.40 L D Magnesium Direct Bilirubin AST ALT Alkaline Phosphatase Lactate Dehydrogenase Troponin T C-Reactive Protein Total Protein Albumin Prealbumin Triglycerides Cholesterol LDL Cholesterol Direct HDL Cholesterol Urine pH Urine WBC (Auto) Urine Creatinine Urine Total Protein Fluid Total Protein Vancomycin Trough Rheumatoid Factor Complement C4 Miscellaneous Test Crossmatch 01/07/17 01/08/17 01/08/17 23:40 05:00 05:00 WBC 27.4 H RBC 2.27 L Hgb 6.1 L Hct 20.4 L MCV MCH 27 L MCHC RDW 17.8 H Plt Count Lymph % (Auto) [place] % (Auto) Lymph # [place] # Baso # Seg Neutrophils % Seg Neuts % (Manual) Lymphocytes % (Manual) Monocytes % (Manual) Eosinophils % (Manual) Basophils % (Manual) Nucleated RBC % Seg Neutrophils # Seg Neutrophils # Man Lymphocytes # (Manual) Monocytes # (Manual) Eosinophils # (Manual) Basophils # (Manual) PT INR Fibrinogen dRVVT Confirm Interp Factor V Activity POC ABG pH POC ABG pCO2 POC ABG pO2 ABG pO2 ABG HCO3 ABG Base Excess ABG Hemoglobin Oxyhemoglobin Sodium Potassium Chloride Carbon Dioxide 16 L D BUN 62 H Creatinine 1.6 H D Glucose 103 H POC Glucose 135 H Lactic Acid Calcium Phosphorus Magnesium Direct Bilirubin AST ALT Alkaline Phosphatase Lactate Dehydrogenase Troponin T C-Reactive Protein Total Protein Albumin Prealbumin Triglycerides Cholesterol LDL Cholesterol Direct HDL Cholesterol Urine pH Urine WBC (Auto) Urine Creatinine Urine Total Protein Fluid Total Protein Vancomycin Trough Rheumatoid Factor Complement C4 Miscellaneous Test Crossmatch 01/08/17 01/08/17 01/08/17 05:25 10:37 10:37 WBC RBC Hgb Hct MCV MCH MCHC RDW Plt Count Lymph % (Auto) [place] % (Auto) Lymph # [place] # Baso # Seg Neutrophils % Seg Neuts % (Manual) Lymphocytes % (Manual) Monocytes % (Manual) Eosinophils % (Manual) Basophils % (Manual) Nucleated RBC % Seg Neutrophils # Seg Neutrophils # Man Lymphocytes # (Manual) Monocytes # (Manual) Eosinophils # (Manual) Basophils # (Manual) PT INR Fibrinogen dRVVT Confirm Interp Factor V Activity POC ABG pH POC ABG pCO2 POC ABG pO2 ABG pO2 ABG HCO3 ABG Base Excess ABG Hemoglobin Oxyhemoglobin Sodium Potassium Chloride Carbon Dioxide BUN Creatinine Glucose POC Glucose 106 H Lactic Acid Calcium Phosphorus Magnesium Direct Bilirubin AST ALT Alkaline Phosphatase Lactate Dehydrogenase Troponin T C-Reactive Protein 24.40 H Total Protein Albumin Prealbumin Triglycerides Cholesterol LDL Cholesterol Direct HDL Cholesterol Urine pH Urine WBC (Auto) Urine Creatinine Urine Total Protein Fluid Total Protein Vancomycin Trough Rheumatoid Factor Complement C4 Miscellaneous Test Crossmatch See Detail 01/08/17 01/08/17 01/08/17 10:37 11:33 15:15 WBC RBC Hgb Hct MCV MCH MCHC RDW Plt Count Lymph % (Auto) [place] % (Auto) Lymph # [place] # Baso # Seg Neutrophils % Seg Neuts % (Manual) Lymphocytes % (Manual) Monocytes % (Manual) Eosinophils % (Manual) Basophils % (Manual) Nucleated RBC % Seg Neutrophils # Seg Neutrophils # Man Lymphocytes # (Manual) Monocytes # (Manual) Eosinophils # (Manual) Basophils # (Manual) PT INR Fibrinogen dRVVT Confirm Interp Factor V Activity POC ABG pH POC ABG pCO2 POC ABG pO2 ABG pO2 ABG HCO3 ABG Base Excess ABG Hemoglobin Oxyhemoglobin Sodium Potassium Chloride Carbon Dioxide BUN Creatinine Glucose POC Glucose 157 H Lactic Acid 9.70 H* 9.10 H* Calcium Phosphorus Magnesium Direct Bilirubin AST ALT Alkaline Phosphatase Lactate Dehydrogenase Troponin T C-Reactive Protein Total Protein Albumin Prealbumin Triglycerides Cholesterol LDL Cholesterol Direct HDL Cholesterol Urine pH Urine WBC (Auto) Urine Creatinine Urine Total Protein Fluid Total Protein Vancomycin Trough Rheumatoid Factor Complement C4 Miscellaneous Test Crossmatch 01/08/17 01/08/17 01/09/17 17:19 23:12 04:40 WBC RBC Hgb Hct MCV MCH MCHC RDW Plt Count Lymph % (Auto) [place] % (Auto) Lymph # [place] # Baso # Seg Neutrophils % Seg Neuts % (Manual) Lymphocytes % (Manual) Monocytes % (Manual) Eosinophils % (Manual) Basophils % (Manual) Nucleated RBC % Seg Neutrophils # Seg Neutrophils # Man Lymphocytes # (Manual) Monocytes # (Manual) Eosinophils # (Manual) Basophils # (Manual) PT INR Fibrinogen dRVVT Confirm Interp Factor V Activity POC ABG pH POC ABG pCO2 POC ABG pO2 ABG pO2 ABG HCO3 ABG Base Excess ABG Hemoglobin Oxyhemoglobin Sodium 147 H Potassium Chloride Carbon Dioxide BUN 82 H Creatinine 1.8 H Glucose 137 H POC Glucose 164 H 157 H Lactic Acid Calcium Phosphorus Magnesium Direct Bilirubin AST ALT Alkaline Phosphatase Lactate Dehydrogenase Troponin T C-Reactive Protein Total Protein Albumin Prealbumin Triglycerides Cholesterol LDL Cholesterol Direct HDL Cholesterol Urine pH Urine WBC (Auto) Urine Creatinine Urine Total Protein Fluid Total Protein Vancomycin Trough Rheumatoid Factor Complement C4 Miscellaneous Test Crossmatch 01/09/17 01/09/17 01/09/17 05:42 08:22 10:57 WBC RBC Hgb Hct MCV MCH MCHC RDW Plt Count Lymph % (Auto) [place] % (Auto) Lymph # [place] # Baso # Seg Neutrophils % Seg Neuts % (Manual) Lymphocytes % (Manual) Monocytes % (Manual) Eosinophils % (Manual) Basophils % (Manual) Nucleated RBC % Seg Neutrophils # Seg Neutrophils # Man Lymphocytes # (Manual) Monocytes # (Manual) Eosinophils # (Manual) Basophils # (Manual) PT INR Fibrinogen dRVVT Confirm Interp Factor V Activity POC ABG pH POC ABG pCO2 POC ABG pO2 ABG pO2 ABG HCO3 ABG Base Excess ABG Hemoglobin Oxyhemoglobin Sodium Potassium Chloride Carbon Dioxide BUN Creatinine Glucose POC Glucose 156 H 122 H Lactic Acid 2.30 H* Calcium Phosphorus Magnesium Direct Bilirubin AST ALT Alkaline Phosphatase Lactate Dehydrogenase Troponin T C-Reactive Protein Total Protein Albumin Prealbumin Triglycerides Cholesterol LDL Cholesterol Direct HDL Cholesterol Urine pH Urine WBC (Auto) Urine Creatinine Urine Total Protein Fluid Total Protein Vancomycin Trough Rheumatoid Factor Complement C4 Miscellaneous Test Crossmatch 01/09/17 01/09/17 01/09/17 13:30 17:14 18:45 WBC RBC Hgb Hct MCV MCH MCHC RDW Plt Count Lymph % (Auto) [place] % (Auto) Lymph # [place] # Baso # Seg Neutrophils % Seg Neuts % (Manual) Lymphocytes % (Manual) Monocytes % (Manual) Eosinophils % (Manual) Basophils % (Manual) Nucleated RBC % Seg Neutrophils # Seg Neutrophils # Man Lymphocytes # (Manual) Monocytes # (Manual) Eosinophils # (Manual) Basophils # (Manual) PT INR Fibrinogen dRVVT Confirm Interp Factor V Activity POC ABG pH POC ABG pCO2 POC ABG pO2 ABG pO2 ABG HCO3 ABG Base Excess ABG Hemoglobin Oxyhemoglobin Sodium Potassium Chloride Carbon Dioxide BUN Creatinine Glucose POC Glucose 127 H Lactic Acid Calcium Phosphorus Magnesium Direct Bilirubin AST ALT Alkaline Phosphatase Lactate Dehydrogenase Troponin T C-Reactive Protein 24.70 H Total Protein Albumin Prealbumin Triglycerides Cholesterol LDL Cholesterol Direct HDL Cholesterol Urine pH Urine WBC (Auto) Urine Creatinine Urine Total Protein Fluid Total Protein Vancomycin Trough Rheumatoid Factor Complement C4 Miscellaneous Test Flexitest 1 H Crossmatch 01/10/17 01/10/17 01/10/17 01:21 04:00 04:00 WBC 18.1 H RBC 3.22 L Hgb 8.8 L Hct 27.0 L D MCV MCH 27 L MCHC RDW 17.0 H Plt Count Lymph % (Auto) [place] % (Auto) Lymph # [place] # Baso # Seg Neutrophils % Seg Neuts % (Manual) Lymphocytes % (Manual) Monocytes % (Manual) Eosinophils % (Manual) Basophils % (Manual) Nucleated RBC % Seg Neutrophils # Seg Neutrophils # Man Lymphocytes # (Manual) Monocytes # (Manual) Eosinophils # (Manual) Basophils # (Manual) PT INR Fibrinogen dRVVT Confirm Interp Factor V Activity POC ABG pH POC ABG pCO2 POC ABG pO2 ABG pO2 ABG HCO3 ABG Base Excess ABG Hemoglobin Oxyhemoglobin Sodium Potassium Chloride Carbon Dioxide BUN 59 H Creatinine 1.3 H Glucose 122 H POC Glucose 160 H Lactic Acid Calcium Phosphorus Magnesium Direct Bilirubin AST ALT Alkaline Phosphatase Lactate Dehydrogenase Troponin T C-Reactive Protein Total Protein Albumin Prealbumin Triglycerides Cholesterol LDL Cholesterol Direct HDL Cholesterol Urine pH Urine WBC (Auto) Urine Creatinine Urine Total Protein Fluid Total Protein Vancomycin Trough Rheumatoid Factor Complement C4 Miscellaneous Test Crossmatch 01/10/17 01/10/17 01/10/17 05:36 12:14 17:55 WBC RBC Hgb Hct MCV MCH MCHC RDW Plt Count Lymph % (Auto) [place] % (Auto) Lymph # [place] # Baso # Seg Neutrophils % Seg Neuts % (Manual) Lymphocytes % (Manual) Monocytes % (Manual) Eosinophils % (Manual) Basophils % (Manual) Nucleated RBC % Seg Neutrophils # Seg Neutrophils # Man Lymphocytes # (Manual) Monocytes # (Manual) Eosinophils # (Manual) Basophils # (Manual) PT INR Fibrinogen dRVVT Confirm Interp Factor V Activity POC ABG pH POC ABG pCO2 POC ABG pO2 ABG pO2 ABG HCO3 ABG Base Excess ABG Hemoglobin Oxyhemoglobin Sodium Potassium Chloride Carbon Dioxide BUN Creatinine Glucose POC Glucose 163 H 120 H 144 H Lactic Acid Calcium Phosphorus Magnesium Direct Bilirubin AST ALT Alkaline Phosphatase Lactate Dehydrogenase Troponin T C-Reactive Protein Total Protein Albumin Prealbumin Triglycerides Cholesterol LDL Cholesterol Direct HDL Cholesterol Urine pH Urine WBC (Auto) Urine Creatinine Urine Total Protein Fluid Total Protein Vancomycin Trough Rheumatoid Factor Complement C4 Miscellaneous Test Crossmatch 01/11/17 01/11/17 01/11/17 00:09 04:00 04:00 WBC 15.8 H RBC 3.04 L Hgb 8.2 L Hct 25.5 L MCV MCH 27 L MCHC RDW 17.3 H Plt Count Lymph % (Auto) [place] % (Auto) Lymph # [place] # Baso # Seg Neutrophils % Seg Neuts % (Manual) Lymphocytes % (Manual) Monocytes % (Manual) Eosinophils % (Manual) Basophils % (Manual) Nucleated RBC % Seg Neutrophils # Seg Neutrophils # Man Lymphocytes # (Manual) Monocytes # (Manual) Eosinophils # (Manual) Basophils # (Manual) PT INR Fibrinogen dRVVT Confirm Interp Factor V Activity POC ABG pH POC ABG pCO2 POC ABG pO2 ABG pO2 ABG HCO3 ABG Base Excess ABG Hemoglobin Oxyhemoglobin Sodium Potassium Chloride Carbon Dioxide BUN 78 H Creatinine 1.6 H Glucose 109 H POC Glucose 122 H Lactic Acid Calcium Phosphorus Magnesium Direct Bilirubin AST ALT Alkaline Phosphatase Lactate Dehydrogenase Troponin T C-Reactive Protein Total Protein Albumin Prealbumin Triglycerides Cholesterol LDL Cholesterol Direct HDL Cholesterol Urine pH Urine WBC (Auto) Urine Creatinine Urine Total Protein Fluid Total Protein Vancomycin Trough Rheumatoid Factor Complement C4 Miscellaneous Test Crossmatch 01/11/17 01/11/17 01/11/17 12:46 18:23 23:42 WBC RBC Hgb Hct MCV MCH MCHC RDW Plt Count Lymph % (Auto) [place] % (Auto) Lymph # [place] # Baso # Seg Neutrophils % Seg Neuts % (Manual) Lymphocytes % (Manual) Monocytes % (Manual) Eosinophils % (Manual) Basophils % (Manual) Nucleated RBC % Seg Neutrophils # Seg Neutrophils # Man Lymphocytes # (Manual) Monocytes # (Manual) Eosinophils # (Manual) Basophils # (Manual) PT INR Fibrinogen dRVVT Confirm Interp Factor V Activity POC ABG pH POC ABG pCO2 POC ABG pO2 ABG pO2 ABG HCO3 ABG Base Excess ABG Hemoglobin Oxyhemoglobin Sodium Potassium Chloride Carbon Dioxide BUN Creatinine Glucose POC Glucose 148 H 125 H 124 H Lactic Acid Calcium Phosphorus Magnesium Direct Bilirubin AST ALT Alkaline Phosphatase Lactate Dehydrogenase Troponin T C-Reactive Protein Total Protein Albumin Prealbumin Triglycerides Cholesterol LDL Cholesterol Direct HDL Cholesterol Urine pH Urine WBC (Auto) Urine Creatinine Urine Total Protein Fluid Total Protein Vancomycin Trough Rheumatoid Factor Complement C4 Miscellaneous Test Crossmatch 01/12/17 01/12/17 01/12/17 04:30 04:30 05:47 WBC 15.8 H RBC 3.31 L Hgb 8.9 L Hct 27.9 L MCV MCH 27 L MCHC RDW 17.4 H Plt Count Lymph % (Auto) [place] % (Auto) Lymph # [place] # Baso # Seg Neutrophils % Seg Neuts % (Manual) Lymphocytes % (Manual) Monocytes % (Manual) Eosinophils % (Manual) Basophils % (Manual) Nucleated RBC % Seg Neutrophils # Seg Neutrophils # Man Lymphocytes # (Manual) Monocytes # (Manual) Eosinophils # (Manual) Basophils # (Manual) PT INR Fibrinogen dRVVT Confirm Interp Factor V Activity POC ABG pH POC ABG pCO2 POC ABG pO2 ABG pO2 ABG HCO3 ABG Base Excess ABG Hemoglobin Oxyhemoglobin Sodium Potassium Chloride Carbon Dioxide BUN 57 H Creatinine Glucose 121 H POC Glucose 110 H Lactic Acid Calcium Phosphorus 2.10 L Magnesium Direct Bilirubin AST ALT Alkaline Phosphatase Lactate Dehydrogenase Troponin T C-Reactive Protein Total Protein Albumin Prealbumin Triglycerides Cholesterol LDL Cholesterol Direct HDL Cholesterol Urine pH Urine WBC (Auto) Urine Creatinine Urine Total Protein Fluid Total Protein Vancomycin Trough Rheumatoid Factor Complement C4 Miscellaneous Test Crossmatch 01/12/17 11:35 WBC RBC Hgb Hct MCV MCH MCHC RDW Plt Count Lymph % (Auto) [place] % (Auto) Lymph # [place] # Baso # Seg Neutrophils % Seg Neuts % (Manual) Lymphocytes % (Manual) Monocytes % (Manual) Eosinophils % (Manual) Basophils % (Manual) Nucleated RBC % Seg Neutrophils # Seg Neutrophils # Man Lymphocytes # (Manual) Monocytes # (Manual) Eosinophils # (Manual) Basophils # (Manual) PT INR Fibrinogen dRVVT Confirm Interp Factor V Activity POC ABG pH POC ABG pCO2 POC ABG pO2 ABG pO2 ABG HCO3 ABG Base Excess ABG Hemoglobin Oxyhemoglobin Sodium Potassium Chloride Carbon Dioxide BUN Creatinine Glucose POC Glucose 146 H Lactic Acid Calcium Phosphorus Magnesium Direct Bilirubin AST ALT Alkaline Phosphatase Lactate Dehydrogenase Troponin T C-Reactive Protein Total Protein Albumin Prealbumin Triglycerides Cholesterol LDL Cholesterol Direct HDL Cholesterol Urine pH Urine WBC (Auto) Urine Creatinine Urine Total Protein Fluid Total Protein Vancomycin Trough Rheumatoid Factor Complement C4 Miscellaneous Test Crossmatch Allied health notes reviewed: RT
[2017-01-12] MEDS: DAKIN'S HALF STRENGTH TP SCH ×2 (18:17→21:25)
[2017-01-12] MEDS: NORVASC PO SCH (18:18)
[2017-01-12] MEDS ORDERED: TPN ADULT IV SCH (20:00)
[2017-01-13] MEDS: LOPRESSOR PO SCH ×4 (00:56→17:44)
[2017-01-13] MEDS: DUONEB *Not for PRN Use IH SCH ×4 (02:00→19:22)
[2017-01-13] MEDS: APRESOLINE PO SCH ×3 (05:07→22:25)
[2017-01-13] MEDS: REGLAN IV SCH ×3 (05:26→22:23)
[2017-01-13] MEDS: HumuLIN R SUB-Q SCH ×4 (05:57→17:46)
[2017-01-13 06:49] LABS: Calcium 9.1 mg/dL (8.4-10.2)
--- NOTE | 2017-01-13 10:54 | Progress Note ---
Subjective Principal diagnosis: Acute resp failure on MVS; S/P Acute CVA; Acute Encephalopathy; JUANITA Interval history: Patient was seen today for follow-up, on many renal related issues patient remains dialysis dependent Also seen and supervise her hemodialysis in addition to routine renal care Interdisciplinary notes were reviewed Vitals labs intake and output medications were reviewed from today Allergies: Reviewed Social history: Reviewed Family history: Reviewed Physical examination HEENT: Oral mucosa moist no pharyngeal erythema Neck: Supple no JVD Chest: Clear to auscultation no crackles rales or wheezes Heart: Regular rate and rhythm S1-S2 heard no S3-S4 Abdomen: Soft nontender no renal bruit no CVA tenderness no suprapubic fullness Extremity: Mild edema dry skin no peripheral cyanosis pulses palpable Neurological: Alert awake Musculoskeletal: No joint effusion noted Assessment and plan Acute renal failure in a patient who is 46-year-old with underlying chronic kidney disease patient is currently dialysis dependent polyuric catheter is working well seen and supervise her hemodialysis as well in addition to routine medical care 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 patient has been placed on erythropoietin 20,000 units every dialysis Patient remains oliguric Blood cultures have been negative for last 72 hours, sputum culture positive for Pseudomonas Patient does have a history of Enterococcus faecalis bacteremia November 2016 follow blood cultures are negative Current hemoglobin is around 8.9 potassium 4.2 bicarbonate 23 calcium 9.1 phosphorus 3.3 Will continue to follow and make recommendation for renal standpoint Will continue to follow and make recommendation from renal standpoint Objective - Vital Signs Vital signs: Vital Signs - 12hr 01/12/17 01/12/17 01/12/17 23:00 23:09 23:13 Temperature Pulse Rate 117 H 120 H 117 H Pulse Rate [ Anterior Bilateral Throughout] Pulse Rate [ Bilateral Throughout] Respiratory 19 18 Rate Respiratory Rate [Anterior Bilateral Throughout] Respiratory Rate [Bilateral Throughout] Blood Pressure 125/75 125/75 O2 Sat by Pulse 99 98 Oximetry O2 Sat by Pulse Oximetry [ Assessment] O2 Sat by Pulse Oximetry [ Bilateral Throughout] 01/12/17 01/12/17 01/13/17 23:26 23:48 00:00 Temperature 98.9 F 98.9 F Pulse Rate 120 H Pulse Rate [ Anterior Bilateral Throughout] Pulse Rate [ Bilateral Throughout] Respiratory 18 Rate Respiratory Rate [Anterior Bilateral Throughout] Respiratory Rate [Bilateral Throughout] Blood Pressure 121/71 O2 Sat by Pulse 98 Oximetry O2 Sat by Pulse 99 Oximetry [ Assessment] O2 Sat by Pulse Oximetry [ Bilateral Throughout] 01/13/17 01/13/17 01/13/17 01:00 02:00 02:15 Temperature Pulse Rate 119 H 122 H Pulse Rate [ Anterior Bilateral Throughout] Pulse Rate [ 103 H 105 H Bilateral Throughout] Respiratory 14 11 L Rate Respiratory Rate [Anterior Bilateral Throughout] Respiratory 24 24 Rate [Bilateral Throughout] Blood Pressure 117/69 125/77 O2 Sat by Pulse 99 99 Oximetry O2 Sat by Pulse Oximetry [ Assessment] O2 Sat by Pulse Oximetry [ Bilateral Throughout] 01/13/17 01/13/17 01/13/17 03:00 04:00 04:56 Temperature 99.0 F Pulse Rate 120 H 121 H 119 H Pulse Rate [ Anterior Bilateral Throughout] Pulse Rate [ Bilateral Throughout] Respiratory 13 18 Rate Respiratory Rate [Anterior Bilateral Throughout] Respiratory Rate [Bilateral Throughout] Blood Pressure 115/70 122/70 124/75 O2 Sat by Pulse 99 99 100 Oximetry O2 Sat by Pulse Oximetry [ Assessment] O2 Sat by Pulse Oximetry [ Bilateral Throughout] 01/13/17 01/13/17 01/13/17 05:00 05:07 06:00 Temperature Pulse Rate 122 H 118 H Pulse Rate [ Anterior Bilateral Throughout] Pulse Rate [ Bilateral Throughout] Respiratory 11 L 13 Rate Respiratory Rate [Anterior Bilateral Throughout] Respiratory Rate [Bilateral Throughout] Blood Pressure 117/63 117/63 101/57 O2 Sat by Pulse 99 96 Oximetry O2 Sat by Pulse Oximetry [ Assessment] O2 Sat by Pulse Oximetry [ Bilateral Throughout] 01/13/17 01/13/17 01/13/17 07:00 07:57 08:00 Temperature 98.4 F 98.4 F Pulse Rate 120 H 121 H Pulse Rate [ Anterior Bilateral Throughout] Pulse Rate [ Bilateral Throughout] Respiratory 9 L 29 H Rate Respiratory Rate [Anterior Bilateral Throughout] Respiratory Rate [Bilateral Throughout] Blood Pressure 106/73 115/68 O2 Sat by Pulse 100 93 Oximetry O2 Sat by Pulse Oximetry [ Assessment] O2 Sat by Pulse 99 Oximetry [ Bilateral Throughout] 01/13/17 01/13/17 01/13/17 08:15 08:30 08:47 Temperature Pulse Rate 87 120 H 124 H Pulse Rate [ 120 H Anterior Bilateral Throughout] Pulse Rate [ Bilateral Throughout] Respiratory Rate Respiratory 25 H Rate [Anterior Bilateral Throughout] Respiratory Rate [Bilateral Throughout] Blood Pressure 109/69 109/63 98/56 O2 Sat by Pulse 99 Oximetry O2 Sat by Pulse Oximetry [ Assessment] O2 Sat by Pulse Oximetry [ Bilateral Throughout] 01/13/17 01/13/17 01/13/17 08:54 09:00 09:21 Temperature Pulse Rate 126 H 123 H Pulse Rate [ 127 H Anterior Bilateral Throughout] Pulse Rate [ Bilateral Throughout] Respiratory 27 H Rate Respiratory 26 H Rate [Anterior Bilateral Throughout] Respiratory Rate [Bilateral Throughout] Blood Pressure 95/53 88/59 O2 Sat by Pulse 97 Oximetry O2 Sat by Pulse 98 Oximetry [ Assessment] O2 Sat by Pulse Oximetry [ Bilateral Throughout] 01/13/17 01/13/17 01/13/17 09:35 09:45 10:00 Temperature Pulse Rate 124 H 128 H 121 H Pulse Rate [ Anterior Bilateral Throughout] Pulse Rate [ Bilateral Throughout] Respiratory 25 H Rate Respiratory Rate [Anterior Bilateral Throughout] Respiratory Rate [Bilateral Throughout] Blood Pressure 94/53 99/67 101/65 O2 Sat by Pulse 98 Oximetry O2 Sat by Pulse Oximetry [ Assessment] O2 Sat by Pulse Oximetry [ Bilateral Throughout] 01/13/17 01/13/17 01/13/17 10:02 10:15 10:30 Temperature Pulse Rate 121 H 125 H 120 H Pulse Rate [ Anterior Bilateral Throughout] Pulse Rate [ Bilateral Throughout] Respiratory Rate Respiratory Rate [Anterior Bilateral Throughout] Respiratory Rate [Bilateral Throughout] Blood Pressure 101/65 92/61 94/60 O2 Sat by Pulse Oximetry O2 Sat by Pulse Oximetry [ Assessment] O2 Sat by Pulse Oximetry [ Bilateral Throughout] - Lab 01/12/17 04:30 01/13/17 06:00 Most recent lab results ABG pH 7.450 pH Units (7.350-7.450) 12/05/16 Unknown ABG pCO2 29.6 mm Hg 12/05/16 Unknown ABG pO2 75.2 mm Hg (80.0-90.0) L 12/05/16 Unknown ABG HCO3 20.1 mmol/L (20.0-26.0) 12/05/16 Unknown ABG O2 Saturation 96.8 % (95.0-99.0) 12/05/16 Unknown Calcium 9.1 mg/dL (8.4-10.2) 01/13/17 06:00 Phosphorus 3.30 mg/dL (2.5-4.5) D 01/13/17 06:00 Magnesium 2.10 mg/dL (1.7-2.3) 01/13/17 06:00 Urine Creatinine 19.7 mg/dL (0.1-20.0) 11/12/16 10:18 Urine Sodium 36 mEq/L 09/16/16 19:19 Urine Total Protein 16 mg/dL (5-11.8) H 09/16/16 19:19
--- NOTE | 2017-01-13 11:24 | Progress Note ---
Assessment and Plan Acute Hypoxemic Respiratory Failure (now with exacerbation and back on MVS) Hypertension (unable to receive p.o. meds) Atrial Fibrillation with RVR s/p tracheostomy Acute encephalopathy s/p CVA Oropharyngeal dysphagia Enterococcal bacteremia sepsis syndrome Sacral Decubitus Ulcer (s/p surgical debridement) Anemia Obesity JUANITA now on hemodialysis Enteric Fistula (I discussed fluid collections with surgeon re: need for further intervention or stopping enteral nutrition; i was informed that there was no need for surgical intervention acutely as findings were sequelae of prior interventions; also ok to continue enteral nutrition) - continue tube feeds at 10mls/hr; continue reglan at 5mg IV q6h - continue HD/UF per nephrology; with CXR picture and chest ultrasound i will recommend continued UF sessions at least 3 x weekly as tolerated - will order right thoracentesis after review of CT lung windows as should improve weaning - continue fentanyl patch for pain issues especially s/p debridement - continue wound care per WCT and RN's (s/p surgical debridement) - continue anti-infectives per ID recs - prn CRP & lactate levels if clinically indicated (Follow WBC also) - keep on with daily PSV trials and / or T-piece as tolerated (repeat trial each shift if failed earlier shift)(not tolerating today either) - continue TPN administration - continue scopolamine for secretion control - continue to wean FiO2 for sats > 94% - continue bronchodilators and pulmonary toilet - VAP bundle addressed - continue prn IV metorolol - continue metoprolol and amlodipine (hold for hypotension) - continue to follow electrolytes and correct as necessary - continue GI & VTE prophylaxis - Continue flu & pneumovax per protocol - ethics consult placed .....she remains critically ill on life sustaining interventions including MVS and at risk for further deterioration including ....32' CCT today without overlap ....care plan discussed at length during team rounds ...prison prognosis remains guarded and this has intermittently been conveyed to family Subjective Date of service: 01/13/17 Principal diagnosis: Acute resp failure on MVS; S/P Acute CVA; Acute Encephalopathy; JUANITA Interval history: Patient is seen today for: Acute resp failure on MVS; S/P Acute CVA; Acute Encephalopathy; JUANITA Seen and examined at bedside; 24hour events reviewed; nursing and respiratory care staff consulted; no adverse overnight events reported to me; silvia remains critically ill and is still not tolerating weaning well; AMS is persistent; CT abd demonstrates free flowing fluid; no new issues otherwise Objective Vital Signs - 12hr 01/12/17 01/12/17 01/13/17 23:26 23:48 00:00 Temperature 98.9 F 98.9 F Pulse Rate 120 H Pulse Rate [ Anterior Bilateral Throughout] Pulse Rate [ Apical] Pulse Rate [ Bilateral Throughout] Pulse Rate [ From Monitor] Respiratory 18 Rate Respiratory Rate [Anterior Bilateral Throughout] Respiratory Rate [Bilateral Throughout] Blood Pressure 121/71 O2 Sat by Pulse 98 Oximetry O2 Sat by Pulse 99 Oximetry [ Assessment] O2 Sat by Pulse Oximetry [ Bilateral Throughout] 01/13/17 01/13/17 01/13/17 01:00 02:00 02:15 Temperature Pulse Rate 119 H 122 H Pulse Rate [ Anterior Bilateral Throughout] Pulse Rate [ Apical] Pulse Rate [ 103 H 105 H Bilateral Throughout] Pulse Rate [ From Monitor] Respiratory 14 11 L Rate Respiratory Rate [Anterior Bilateral Throughout] Respiratory 24 24 Rate [Bilateral Throughout] Blood Pressure 117/69 125/77 O2 Sat by Pulse 99 99 Oximetry O2 Sat by Pulse Oximetry [ Assessment] O2 Sat by Pulse Oximetry [ Bilateral Throughout] 01/13/17 01/13/17 01/13/17 03:00 04:00 04:56 Temperature 99.0 F Pulse Rate 120 H 121 H 119 H Pulse Rate [ Anterior Bilateral Throughout] Pulse Rate [ Apical] Pulse Rate [ Bilateral Throughout] Pulse Rate [ From Monitor] Respiratory 13 18 Rate Respiratory Rate [Anterior Bilateral Throughout] Respiratory Rate [Bilateral Throughout] Blood Pressure 115/70 122/70 124/75 O2 Sat by Pulse 99 99 100 Oximetry O2 Sat by Pulse Oximetry [ Assessment] O2 Sat by Pulse Oximetry [ Bilateral Throughout] 01/13/17 01/13/17 01/13/17 05:00 05:07 06:00 Temperature Pulse Rate 122 H 118 H Pulse Rate [ Anterior Bilateral Throughout] Pulse Rate [ Apical] Pulse Rate [ Bilateral Throughout] Pulse Rate [ From Monitor] Respiratory 11 L 13 Rate Respiratory Rate [Anterior Bilateral Throughout] Respiratory Rate [Bilateral Throughout] Blood Pressure 117/63 117/63 101/57 O2 Sat by Pulse 99 96 Oximetry O2 Sat by Pulse Oximetry [ Assessment] O2 Sat by Pulse Oximetry [ Bilateral Throughout] 01/13/17 01/13/17 01/13/17 07:00 07:57 08:00 Temperature 98.4 F 98.4 F Pulse Rate 120 H 121 H Pulse Rate [ Anterior Bilateral Throughout] Pulse Rate [ Apical] Pulse Rate [ Bilateral Throughout] Pulse Rate [ From Monitor] Respiratory 9 L 29 H Rate Respiratory Rate [Anterior Bilateral Throughout] Respiratory Rate [Bilateral Throughout] Blood Pressure 106/73 115/68 O2 Sat by Pulse 100 93 Oximetry O2 Sat by Pulse Oximetry [ Assessment] O2 Sat by Pulse 99 Oximetry [ Bilateral Throughout] 01/13/17 01/13/17 01/13/17 08:15 08:30 08:47 Temperature Pulse Rate 87 120 H 124 H Pulse Rate [ 120 H Anterior Bilateral Throughout] Pulse Rate [ Apical] Pulse Rate [ Bilateral Throughout] Pulse Rate [ From Monitor] Respiratory Rate Respiratory 25 H Rate [Anterior Bilateral Throughout] Respiratory Rate [Bilateral Throughout] Blood Pressure 109/69 109/63 98/56 O2 Sat by Pulse 99 Oximetry O2 Sat by Pulse Oximetry [ Assessment] O2 Sat by Pulse Oximetry [ Bilateral Throughout] 01/13/17 01/13/17 01/13/17 08:54 09:00 09:21 Temperature Pulse Rate 126 H 123 H Pulse Rate [ 127 H Anterior Bilateral Throughout] Pulse Rate [ 126 H Apical] Pulse Rate [ Bilateral Throughout] Pulse Rate [ 126 H From Monitor] Respiratory 27 H Rate Respiratory 26 H Rate [Anterior Bilateral Throughout] Respiratory Rate [Bilateral Throughout] Blood Pressure 95/53 88/59 O2 Sat by Pulse 97 Oximetry O2 Sat by Pulse 98 Oximetry [ Assessment] O2 Sat by Pulse Oximetry [ Bilateral Throughout] 01/13/17 01/13/17 01/13/17 09:35 09:45 10:00 Temperature Pulse Rate 124 H 128 H 121 H Pulse Rate [ Anterior Bilateral Throughout] Pulse Rate [ Apical] Pulse Rate [ Bilateral Throughout] Pulse Rate [ From Monitor] Respiratory 25 H Rate Respiratory Rate [Anterior Bilateral Throughout] Respiratory Rate [Bilateral Throughout] Blood Pressure 94/53 99/67 101/65 O2 Sat by Pulse 98 Oximetry O2 Sat by Pulse Oximetry [ Assessment] O2 Sat by Pulse Oximetry [ Bilateral Throughout] 01/13/17 01/13/17 01/13/17 10:02 10:15 10:30 Temperature Pulse Rate 121 H 125 H 120 H Pulse Rate [ Anterior Bilateral Throughout] Pulse Rate [ Apical] Pulse Rate [ Bilateral Throughout] Pulse Rate [ From Monitor] Respiratory Rate Respiratory Rate [Anterior Bilateral Throughout] Respiratory Rate [Bilateral Throughout] Blood Pressure 101/65 92/61 94/60 O2 Sat by Pulse Oximetry O2 Sat by Pulse Oximetry [ Assessment] O2 Sat by Pulse Oximetry [ Bilateral Throughout] 01/13/17 01/13/17 01/13/17 10:45 11:00 11:04 Temperature Pulse Rate 118 H 120 H 118 H Pulse Rate [ Anterior Bilateral Throughout] Pulse Rate [ Apical] Pulse Rate [ Bilateral Throughout] Pulse Rate [ From Monitor] Respiratory 26 H Rate Respiratory Rate [Anterior Bilateral Throughout] Respiratory Rate [Bilateral Throughout] Blood Pressure 90/66 101/72 101/72 O2 Sat by Pulse 99 Oximetry O2 Sat by Pulse Oximetry [ Assessment] O2 Sat by Pulse Oximetry [ Bilateral Throughout] 01/13/17 11:17 Temperature Pulse Rate 122 H Pulse Rate [ Anterior Bilateral Throughout] Pulse Rate [ Apical] Pulse Rate [ Bilateral Throughout] Pulse Rate [ From Monitor] Respiratory Rate Respiratory Rate [Anterior Bilateral Throughout] Respiratory Rate [Bilateral Throughout] Blood Pressure 93/55 O2 Sat by Pulse Oximetry O2 Sat by Pulse Oximetry [ Assessment] O2 Sat by Pulse Oximetry [ Bilateral Throughout] Constitutional: appears uncomfortable, other (not tracking) Eyes: non-icteric, other (tracheostomy tube in midline of neck) ENT: oropharynx moist, oropharyngeal exudate pre Neck: supple, no lymphadenopathy, no JVD, other (no thyromegaly) Effort: mildly labored Ascultation: Bilateral: diminished breath sounds (bases), rhonchi (and referred upper airway sounds) Percussion: Bilateral: not dull, dull (bases) Cardiovascular: regular rate and rhythm, other (no rubs / murmurs) Gastrointestinal: hypoactive bowel sounds, soft, non-tender, non-distended, other (RLQ & LUQ stomas with colostomy bags) Integumentary: decubitus ulcer (sacral; stage 4 s/p surgical debridement), other (no rash; no cellulitis; poor turgor) Extremities: no cyanosis, pulses normal, no ischemia or petechiae, edema (1+ bilaterally) Neurologic: pupils equal and round, unable to assess, other (encephalopathic) Psychiatric: other (unable to assess) CBC and BMP: 01/15/17 12:45 01/16/17 Unknown ABG, PT/INR, D-dimer: ABG POC ABG pH 7.503 (7.35-7.45) H 12/19/16 09:36 ABG pH 7.450 pH Units (7.350-7.450) 12/05/16 Unknown POC ABG pCO2 30.1 (35-45) L 12/19/16 09:36 ABG pCO2 29.6 mm Hg 12/05/16 Unknown POC ABG pO2 85 (80-105) 12/19/16 09:36 ABG pO2 75.2 mm Hg (80.0-90.0) L 12/05/16 Unknown POC ABG HCO3 23.6 12/19/16 09:36 POC ABG Total CO2 25 12/19/16 09:36 POC ABG O2 Sat 97 12/19/16 09:36 ABG O2 Saturation 96.8 % (95.0-99.0) 12/05/16 Unknown PT/INR, D-dimer PT 16.1 Sec. (12.2-14.9) H 12/28/16 08:30 INR 1.23 (0.87-1.13) H 12/28/16 08:30 Abnormal lab findings: Abnormal Labs 09/03/16 09/03/16 09/03/16 00:03 00:10 00:10 WBC 13.9 H RBC 5.95 H Hgb Hct 44.0 H MCV 74 L MCH 22 L MCHC RDW 17.5 H Plt Count Lymph % (Auto) [place] % (Auto) Lymph # [place] # Baso # Seg Neutrophils % Seg Neuts % (Manual) Lymphocytes % (Manual) 54.0 H Monocytes % (Manual) Eosinophils % (Manual) Basophils % (Manual) Nucleated RBC % Seg Neutrophils # Seg Neutrophils # Man Lymphocytes # (Manual) 7.5 H Monocytes # (Manual) Eosinophils # (Manual) Basophils # (Manual) PT INR Fibrinogen dRVVT Confirm Interp Factor V Activity POC ABG pH POC ABG pCO2 POC ABG pO2 ABG pO2 ABG HCO3 ABG Base Excess ABG Hemoglobin Oxyhemoglobin Sodium Potassium 2.8 L* Chloride Carbon Dioxide 21 L BUN Creatinine 1.7 H Glucose 159 H POC Glucose 177 H Lactic Acid Calcium Phosphorus Magnesium Direct Bilirubin AST ALT Alkaline Phosphatase Lactate Dehydrogenase Troponin T C-Reactive Protein Total Protein Albumin Prealbumin Triglycerides Cholesterol LDL Cholesterol Direct HDL Cholesterol Urine pH Urine WBC (Auto) Urine Creatinine Urine Total Protein Fluid Total Protein Vancomycin Trough Rheumatoid Factor Complement C4 Miscellaneous Test Crossmatch 09/03/16 09/03/16 09/03/16 12:12 15:07 16:20 WBC RBC Hgb Hct MCV MCH MCHC RDW Plt Count Lymph % (Auto) [place] % (Auto) Lymph # [place] # Baso # Seg Neutrophils % Seg Neuts % (Manual) Lymphocytes % (Manual) Monocytes % (Manual) Eosinophils % (Manual) Basophils % (Manual) Nucleated RBC % Seg Neutrophils # Seg Neutrophils # Man Lymphocytes # (Manual) Monocytes # (Manual) Eosinophils # (Manual) Basophils # (Manual) PT INR Fibrinogen dRVVT Confirm Interp Factor V Activity POC ABG pH 7.452 H POC ABG pCO2 POC ABG pO2 ABG pO2 ABG HCO3 ABG Base Excess ABG Hemoglobin Oxyhemoglobin Sodium Potassium Chloride Carbon Dioxide BUN Creatinine Glucose POC Glucose 178 H Lactic Acid Calcium Phosphorus 2.20 L Magnesium 1.60 L Direct Bilirubin AST ALT Alkaline Phosphatase Lactate Dehydrogenase Troponin T C-Reactive Protein Total Protein Albumin Prealbumin Triglycerides Cholesterol LDL Cholesterol Direct HDL Cholesterol Urine pH Urine WBC (Auto) Urine Creatinine Urine Total Protein Fluid Total Protein Vancomycin Trough Rheumatoid Factor Complement C4 Miscellaneous Test Crossmatch 09/03/16 09/03/16 09/03/16 17:57 17:58 23:50 WBC RBC Hgb Hct MCV MCH MCHC RDW Plt Count Lymph % (Auto) [place] % (Auto) Lymph # [place] # Baso # Seg Neutrophils % Seg Neuts % (Manual) Lymphocytes % (Manual) Monocytes % (Manual) Eosinophils % (Manual) Basophils % (Manual) Nucleated RBC % Seg Neutrophils # Seg Neutrophils # Man Lymphocytes # (Manual) Monocytes # (Manual) Eosinophils # (Manual) Basophils # (Manual) PT INR Fibrinogen dRVVT Confirm Interp Factor V Activity POC ABG pH POC ABG pCO2 POC ABG pO2 ABG pO2 ABG HCO3 ABG Base Excess ABG Hemoglobin Oxyhemoglobin Sodium Potassium Chloride Carbon Dioxide BUN Creatinine Glucose POC Glucose 162 H 145 H Lactic Acid Calcium Phosphorus 2.30 L Magnesium Direct Bilirubin AST ALT Alkaline Phosphatase Lactate Dehydrogenase Troponin T C-Reactive Protein Total Protein Albumin Prealbumin Triglycerides Cholesterol LDL Cholesterol Direct HDL Cholesterol Urine pH Urine WBC (Auto) Urine Creatinine Urine Total Protein Fluid Total Protein Vancomycin Trough Rheumatoid Factor Complement C4 Miscellaneous Test Crossmatch 09/04/16 09/04/1609/04/17 03:31 03:31 05:42 WBC RBC Hgb 9.7 L D Hct MCV 72 L MCH 23 L MCHC RDW 17.5 H Plt Count Lymph % (Auto) 11.1 L [place] % (Auto) Lymph # [place] # Baso # Seg Neutrophils % 84.3 H Seg Neuts % (Manual) Lymphocytes % (Manual) Monocytes % (Manual) Eosinophils % (Manual) Basophils % (Manual) Nucleated RBC % Seg Neutrophils # 8.9 H Seg Neutrophils # Man Lymphocytes # (Manual) Monocytes # (Manual) Eosinophils # (Manual) Basophils # (Manual) PT INR Fibrinogen dRVVT Confirm Interp Factor V Activity POC ABG pH POC ABG pCO2 POC ABG pO2 ABG pO2 ABG HCO3 ABG Base Excess ABG Hemoglobin Oxyhemoglobin Sodium 135 L Potassium 2.9 L* Chloride 97.2 L Carbon Dioxide 19 L BUN Creatinine 1.7 H Glucose 170 H POC Glucose 152 H Lactic Acid Calcium Phosphorus Magnesium Direct Bilirubin AST ALT Alkaline Phosphatase Lactate Dehydrogenase Troponin T C-Reactive Protein Total Protein Albumin Prealbumin Triglycerides 160 H Cholesterol LDL Cholesterol Direct HDL Cholesterol 31 L Urine pH Urine WBC (Auto) Urine Creatinine Urine Total Protein Fluid Total Protein Vancomycin Trough Rheumatoid Factor Complement C4 Miscellaneous Test Crossmatch 09/04/16 09/04/16 09/04/16 11:34 17:46 23:29 WBC RBC Hgb Hct MCV MCH MCHC RDW Plt Count Lymph % (Auto) [place] % (Auto) Lymph # [place] # Baso # Seg Neutrophils % Seg Neuts % (Manual) Lymphocytes % (Manual) Monocytes % (Manual) Eosinophils % (Manual) Basophils % (Manual) Nucleated RBC % Seg Neutrophils # Seg Neutrophils # Man Lymphocytes # (Manual) Monocytes # (Manual) Eosinophils # (Manual) Basophils # (Manual) PT INR Fibrinogen dRVVT Confirm Interp Factor V Activity POC ABG pH POC ABG pCO2 POC ABG pO2 ABG pO2 ABG HCO3 ABG Base Excess ABG Hemoglobin Oxyhemoglobin Sodium Potassium Chloride Carbon Dioxide BUN Creatinine Glucose POC Glucose 165 H 210 H 139 H Lactic Acid Calcium Phosphorus Magnesium Direct Bilirubin AST ALT Alkaline Phosphatase Lactate Dehydrogenase Troponin T C-Reactive Protein Total Protein Albumin Prealbumin Triglycerides Cholesterol LDL Cholesterol Direct HDL Cholesterol Urine pH Urine WBC (Auto) Urine Creatinine Urine Total Protein Fluid Total Protein Vancomycin Trough Rheumatoid Factor Complement C4 Miscellaneous Test Crossmatch 0709/05/16 09/05/16 04:05 04:05 05:38 WBC RBC Hgb Hct MCV 76 L D MCH 23 L MCHC RDW 17.8 H Plt Count Lymph % (Auto) [place] % (Auto) Lymph # [place] # Baso # Seg Neutrophils % Seg Neuts % (Manual) Lymphocytes % (Manual) Monocytes % (Manual) Eosinophils % (Manual) Basophils % (Manual) Nucleated RBC % Seg Neutrophils # Seg Neutrophils # Man Lymphocytes # (Manual) Monocytes # (Manual) Eosinophils # (Manual) Basophils # (Manual) PT INR Fibrinogen dRVVT Confirm Interp Factor V Activity POC ABG pH POC ABG pCO2 POC ABG pO2 ABG pO2 ABG HCO3 ABG Base Excess ABG Hemoglobin Oxyhemoglobin Sodium 134 L Potassium Chloride Carbon Dioxide 18 L BUN Creatinine 1.8 H Glucose 192 H POC Glucose 175 H Lactic Acid Calcium Phosphorus Magnesium Direct Bilirubin AST ALT Alkaline Phosphatase Lactate Dehydrogenase Troponin T C-Reactive Protein Total Protein Albumin Prealbumin Triglycerides Cholesterol LDL Cholesterol Direct HDL Cholesterol Urine pH Urine WBC (Auto) Urine Creatinine Urine Total Protein Fluid Total Protein Vancomycin Trough Rheumatoid Factor Complement C4 Miscellaneous Test Crossmatch 09/05/16 09/05/16 09/05/16 11:38 17:48 23:22 WBC RBC Hgb Hct MCV MCH MCHC RDW Plt Count Lymph % (Auto) [place] % (Auto) Lymph # [place] # Baso # Seg Neutrophils % Seg Neuts % (Manual) Lymphocytes % (Manual) Monocytes % (Manual) Eosinophils % (Manual) Basophils % (Manual) Nucleated RBC % Seg Neutrophils # Seg Neutrophils # Man Lymphocytes # (Manual) Monocytes # (Manual) Eosinophils # (Manual) Basophils # (Manual) PT INR Fibrinogen dRVVT Confirm Interp Factor V Activity POC ABG pH POC ABG pCO2 POC ABG pO2 ABG pO2 ABG HCO3 ABG Base Excess ABG Hemoglobin Oxyhemoglobin Sodium Potassium Chloride Carbon Dioxide BUN Creatinine Glucose POC Glucose 164 H 186 H 195 H Lactic Acid Calcium Phosphorus Magnesium Direct Bilirubin AST ALT Alkaline Phosphatase Lactate Dehydrogenase Troponin T C-Reactive Protein Total Protein Albumin Prealbumin Triglycerides Cholesterol LDL Cholesterol Direct HDL Cholesterol Urine pH Urine WBC (Auto) Urine Creatinine Urine Total Protein Fluid Total Protein Vancomycin Trough Rheumatoid Factor Complement C4 Miscellaneous Test Crossmatch 09/06/16 09/06/16 09/06/16 04:12 05:59 07:32 WBC RBC Hgb Hct MCV MCH MCHC RDW Plt Count Lymph % (Auto) [place] % (Auto) Lymph # [place] # Baso # Seg Neutrophils % Seg Neuts % (Manual) Lymphocytes % (Manual) Monocytes % (Manual) Eosinophils % (Manual) Basophils % (Manual) Nucleated RBC % Seg Neutrophils # Seg Neutrophils # Man Lymphocytes # (Manual) Monocytes # (Manual) Eosinophils # (Manual) Basophils # (Manual) PT INR Fibrinogen dRVVT Confirm Interp Factor V Activity POC ABG pH 7.514 H POC ABG pCO2 29.1 L POC ABG pO2 72 L ABG pO2 ABG HCO3 ABG Base Excess ABG Hemoglobin Oxyhemoglobin Sodium 133 L Potassium 3.4 L Chloride 94.9 L Carbon Dioxide 19 L BUN 30 H Creatinine 2.1 H Glucose 139 H POC Glucose 146 H Lactic Acid Calcium Phosphorus Magnesium Direct Bilirubin AST ALT Alkaline Phosphatase Lactate Dehydrogenase Troponin T C-Reactive Protein Total Protein Albumin Prealbumin Triglycerides Cholesterol LDL Cholesterol Direct HDL Cholesterol Urine pH Urine WBC (Auto) Urine Creatinine Urine Total Protein Fluid Total Protein Vancomycin Trough Rheumatoid Factor Complement C4 Miscellaneous Test Crossmatch 09/06/16 09/06/16 09/06/16 11:57 17:58 19:02 WBC RBC Hgb Hct MCV MCH MCHC RDW Plt Count Lymph % (Auto) [place] % (Auto) Lymph # [place] # Baso # Seg Neutrophils % Seg Neuts % (Manual) Lymphocytes % (Manual) Monocytes % (Manual) Eosinophils % (Manual) Basophils % (Manual) Nucleated RBC % Seg Neutrophils # Seg Neutrophils # Man Lymphocytes # (Manual) Monocytes # (Manual) Eosinophils # (Manual) Basophils # (Manual) PT INR Fibrinogen dRVVT Confirm Interp Factor V Activity POC ABG pH 7.465 H POC ABG pCO2 32.0 L POC ABG pO2 ABG pO2 ABG HCO3 ABG Base Excess ABG Hemoglobin Oxyhemoglobin Sodium Potassium Chloride Carbon Dioxide BUN Creatinine Glucose POC Glucose 165 H 160 H Lactic Acid Calcium Phosphorus Magnesium Direct Bilirubin AST ALT Alkaline Phosphatase Lactate Dehydrogenase Troponin T C-Reactive Protein Total Protein Albumin Prealbumin Triglycerides Cholesterol LDL Cholesterol Direct HDL Cholesterol Urine pH Urine WBC (Auto) Urine Creatinine Urine Total Protein Fluid Total Protein Vancomycin Trough Rheumatoid Factor Complement C4 Miscellaneous Test Crossmatch 09/06/16 09/07/16 09/07/16 23:45 02:47 02:47 WBC RBC Hgb Hct MCV MCH MCHC RDW Plt Count Lymph % (Auto) [place] % (Auto) Lymph # [place] # Baso # Seg Neutrophils % Seg Neuts % (Manual) Lymphocytes % (Manual) Monocytes % (Manual) Eosinophils % (Manual) Basophils % (Manual) Nucleated RBC % Seg Neutrophils # Seg Neutrophils # Man Lymphocytes # (Manual) Monocytes # (Manual) Eosinophils # (Manual) Basophils # (Manual) PT INR Fibrinogen dRVVT Confirm Interp Factor V Activity POC ABG pH POC ABG pCO2 POC ABG pO2 ABG pO2 ABG HCO3 ABG Base Excess ABG Hemoglobin Oxyhemoglobin Sodium Potassium Chloride Carbon Dioxide BUN Creatinine Glucose POC Glucose 204 H Lactic Acid Calcium Phosphorus Magnesium Direct Bilirubin AST ALT Alkaline Phosphatase Lactate Dehydrogenase Troponin T C-Reactive Protein Total Protein Albumin Prealbumin Triglycerides Cholesterol LDL Cholesterol Direct HDL Cholesterol Urine pH Urine WBC (Auto) 68.0 H Urine Creatinine 106.1 H Urine Total Protein Fluid Total Protein Vancomycin Trough Rheumatoid Factor Complement C4 Miscellaneous Test Crossmatch 09/07/16 09/07/16 09/07/16 04:50 06:19 06:39 WBC RBC Hgb Hct MCV MCH MCHC RDW Plt Count Lymph % (Auto) [place] % (Auto) Lymph # [place] # Baso # Seg Neutrophils % Seg Neuts % (Manual) Lymphocytes % (Manual) Monocytes % (Manual) Eosinophils % (Manual) Basophils % (Manual) Nucleated RBC % Seg Neutrophils # Seg Neutrophils # Man Lymphocytes # (Manual) Monocytes # (Manual) Eosinophils # (Manual) Basophils # (Manual) PT INR Fibrinogen dRVVT Confirm Interp Factor V Activity POC ABG pH 7.457 H POC ABG pCO2 32.1 L POC ABG pO2 76 L ABG pO2 ABG HCO3 ABG Base Excess ABG Hemoglobin Oxyhemoglobin Sodium 132 L Potassium Chloride 94.7 L Carbon Dioxide BUN 53 H Creatinine 2.9 H Glucose 151 H POC Glucose 149 H Lactic Acid Calcium Phosphorus Magnesium Direct Bilirubin AST ALT Alkaline Phosphatase Lactate Dehydrogenase Troponin T C-Reactive Protein Total Protein Albumin Prealbumin Triglycerides Cholesterol LDL Cholesterol Direct HDL Cholesterol Urine pH Urine WBC (Auto) Urine Creatinine Urine Total Protein Fluid Total Protein Vancomycin Trough Rheumatoid Factor Complement C4 Miscellaneous Test Crossmatch 09/07/16 09/07/16 09/07/16 09:20 11:43 11:43 WBC 19.4 H RBC Hgb 8.3 L Hct 26.4 L D MCV 72 L D MCH 22 L MCHC RDW 17.9 H Plt Count Lymph % (Auto) 8.5 L [place] % (Auto) Lymph # [place] # 1.0 H Baso # Seg Neutrophils % 85.8 H Seg Neuts % (Manual) Lymphocytes % (Manual) Monocytes % (Manual) Eosinophils % (Manual) Basophils % (Manual) Nucleated RBC % Seg Neutrophils # 16.6 H Seg Neutrophils # Man Lymphocytes # (Manual) Monocytes # (Manual) Eosinophils # (Manual) Basophils # (Manual) PT INR Fibrinogen dRVVT Confirm Interp Factor V Activity POC ABG pH POC ABG pCO2 POC ABG pO2 ABG pO2 ABG HCO3 ABG Base Excess ABG Hemoglobin Oxyhemoglobin Sodium 134 L Potassium Chloride 97.2 L Carbon Dioxide 20 L BUN 58 H Creatinine 2.9 H Glucose 147 H POC Glucose Lactic Acid Calcium Phosphorus 2.40 L Magnesium 2.40 H Direct Bilirubin AST ALT Alkaline Phosphatase Lactate Dehydrogenase Troponin T C-Reactive Protein Total Protein 5.8 L Albumin 2.2 L Prealbumin Triglycerides Cholesterol LDL Cholesterol Direct HDL Cholesterol Urine pH Urine WBC (Auto) Urine Creatinine Urine Total Protein Fluid Total Protein Vancomycin Trough Rheumatoid Factor Complement C4 58 H Miscellaneous Test Crossmatch 09/07/16 09/07/16 09/07/16 11:50 16:00 17:31 WBC RBC Hgb Hct MCV MCH MCHC RDW Plt Count Lymph % (Auto) [place] % (Auto) Lymph # [place] # Baso # Seg Neutrophils % Seg Neuts % (Manual) Lymphocytes % (Manual) Monocytes % (Manual) Eosinophils % (Manual) Basophils % (Manual) Nucleated RBC % Seg Neutrophils # Seg Neutrophils # Man Lymphocytes # (Manual) Monocytes # (Manual) Eosinophils # (Manual) Basophils # (Manual) PT INR Fibrinogen dRVVT Confirm Interp Factor V Activity POC ABG pH POC ABG pCO2 POC ABG pO2 158 H ABG pO2 ABG HCO3 ABG Base Excess ABG Hemoglobin Oxyhemoglobin Sodium Potassium Chloride Carbon Dioxide BUN Creatinine Glucose POC Glucose 175 H Lactic Acid Calcium Phosphorus Magnesium Direct Bilirubin AST ALT Alkaline Phosphatase Lactate Dehydrogenase Troponin T C-Reactive Protein Total Protein Albumin Prealbumin Triglycerides Cholesterol LDL Cholesterol Direct HDL Cholesterol Urine pH Urine WBC (Auto) Urine Creatinine 66.3 H Urine Total Protein Fluid Total Protein Vancomycin Trough Rheumatoid Factor Complement C4 Miscellaneous Test Crossmatch 09/07/16 09/08/16 09/08/16 23:50 05:46 06:18 WBC 17.8 H RBC 3.58 L Hgb 8.1 L Hct 25.5 L MCV 71 L MCH 23 L MCHC RDW 18.4 H Plt Count Lymph % (Auto) [place] % (Auto) Lymph # [place] # Baso # Seg Neutrophils % Seg Neuts % (Manual) 92.0 H Lymphocytes % (Manual) 6.0 L Monocytes % (Manual) Eosinophils % (Manual) Basophils % (Manual) Nucleated RBC % Seg Neutrophils # Seg Neutrophils # Man 16.4 H Lymphocytes # (Manual) 1.1 L Monocytes # (Manual) Eosinophils # (Manual) Basophils # (Manual) PT INR Fibrinogen dRVVT Confirm Interp Factor V Activity POC ABG pH POC ABG pCO2 34.3 L POC ABG pO2 71 L ABG pO2 ABG HCO3 ABG Base Excess ABG Hemoglobin Oxyhemoglobin Sodium Potassium Chloride Carbon Dioxide BUN Creatinine Glucose POC Glucose 216 H Lactic Acid Calcium Phosphorus Magnesium Direct Bilirubin AST ALT Alkaline Phosphatase Lactate Dehydrogenase Troponin T C-Reactive Protein Total Protein Albumin Prealbumin Triglycerides Cholesterol LDL Cholesterol Direct HDL Cholesterol Urine pH Urine WBC (Auto) Urine Creatinine Urine Total Protein Fluid Total Protein Vancomycin Trough Rheumatoid Factor Complement C4 Miscellaneous Test Crossmatch 09/08/16 09/08/16 09/08/16 06:18 06:51 10:55 WBC RBC Hgb Hct MCV MCH MCHC RDW Plt Count Lymph % (Auto) [place] % (Auto) Lymph # [place] # Baso # Seg Neutrophils % Seg Neuts % (Manual) Lymphocytes % (Manual) Monocytes % (Manual) Eosinophils % (Manual) Basophils % (Manual) Nucleated RBC % Seg Neutrophils # Seg Neutrophils # Man Lymphocytes # (Manual) Monocytes # (Manual) Eosinophils # (Manual) Basophils # (Manual) PT INR Fibrinogen dRVVT Confirm Interp Factor V Activity POC ABG pH POC ABG pCO2 POC ABG pO2 ABG pO2 ABG HCO3 ABG Base Excess ABG Hemoglobin Oxyhemoglobin Sodium 133 L Potassium Chloride 96.9 L Carbon Dioxide 20 L BUN 63 H Creatinine 2.7 H Glucose 195 H POC Glucose 204 H 169 H Lactic Acid Calcium Phosphorus Magnesium Direct Bilirubin AST ALT Alkaline Phosphatase Lactate Dehydrogenase Troponin T C-Reactive Protein Total Protein Albumin Prealbumin Triglycerides Cholesterol LDL Cholesterol Direct HDL Cholesterol Urine pH Urine WBC (Auto) Urine Creatinine Urine Total Protein Fluid Total Protein Vancomycin Trough Rheumatoid Factor Complement C4 Miscellaneous Test Crossmatch 09/08/16 09/08/16 09/08/16 11:48 11:48 11:48 WBC RBC Hgb Hct MCV MCH MCHC RDW Plt Count Lymph % (Auto) [place] % (Auto) Lymph # [place] # Baso # Seg Neutrophils % Seg Neuts % (Manual) Lymphocytes % (Manual) Monocytes % (Manual) Eosinophils % (Manual) Basophils % (Manual) Nucleated RBC % Seg Neutrophils # Seg Neutrophils # Man Lymphocytes # (Manual) Monocytes # (Manual) Eosinophils # (Manual) Basophils # (Manual) PT INR Fibrinogen 750 H dRVVT Confirm Interp Factor V Activity POC ABG pH POC ABG pCO2 POC ABG pO2 ABG pO2 ABG HCO3 ABG Base Excess ABG Hemoglobin Oxyhemoglobin Sodium Potassium Chloride Carbon Dioxide BUN Creatinine Glucose POC Glucose Lactic Acid Calcium Phosphorus Magnesium Direct Bilirubin AST ALT Alkaline Phosphatase Lactate Dehydrogenase Troponin T C-Reactive Protein 15.70 H Total Protein Albumin Prealbumin Triglycerides Cholesterol LDL Cholesterol Direct HDL Cholesterol Urine pH Urine WBC (Auto) Urine Creatinine Urine Total Protein Fluid Total Protein Vancomycin Trough Rheumatoid Factor 24 H Complement C4 Miscellaneous Test Crossmatch 09/08/16 09/08/16 09/09/16 15:35 18:25 00:24 WBC RBC Hgb Hct MCV MCH MCHC RDW Plt Count Lymph % (Auto) [place] % (Auto) Lymph # [place] # Baso # Seg Neutrophils % Seg Neuts % (Manual) Lymphocytes % (Manual) Monocytes % (Manual) Eosinophils % (Manual) Basophils % (Manual) Nucleated RBC % Seg Neutrophils # Seg Neutrophils # Man Lymphocytes # (Manual) Monocytes # (Manual) Eosinophils # (Manual) Basophils # (Manual) PT INR Fibrinogen dRVVT Confirm Interp Factor V Activity 182 H POC ABG pH POC ABG pCO2 POC ABG pO2 ABG pO2 ABG HCO3 ABG Base Excess ABG Hemoglobin Oxyhemoglobin Sodium Potassium Chloride Carbon Dioxide BUN Creatinine Glucose POC Glucose 184 H 216 H Lactic Acid Calcium Phosphorus Magnesium Direct Bilirubin AST ALT Alkaline Phosphatase Lactate Dehydrogenase Troponin T C-Reactive Protein Total Protein Albumin Prealbumin Triglycerides Cholesterol LDL Cholesterol Direct HDL Cholesterol Urine pH Urine WBC (Auto) Urine Creatinine Urine Total Protein Fluid Total Protein Vancomycin Trough Rheumatoid Factor Complement C4 Miscellaneous Test Crossmatch 09/09/16 09/09/16 09/09/16 03:00 03:00 04:04 WBC 27.9 H RBC Hgb 8.7 L Hct 28.1 L MCV 72 L MCH 22 L MCHC RDW 18.4 H Plt Count 485 H Lymph % (Auto) [place] % (Auto) Lymph # [place] # Baso # Seg Neutrophils % Seg Neuts % (Manual) 77.0 H Lymphocytes % (Manual) 9.0 L Monocytes % (Manual) Eosinophils % (Manual) Basophils % (Manual) Nucleated RBC % Seg Neutrophils # Seg Neutrophils # Man 21.5 H Lymphocytes # (Manual) Monocytes # (Manual) 2.0 H Eosinophils # (Manual) Basophils # (Manual) PT INR Fibrinogen dRVVT Confirm Interp Factor V Activity POC ABG pH POC ABG pCO2 POC ABG pO2 121 H ABG pO2 ABG HCO3 ABG Base Excess ABG Hemoglobin Oxyhemoglobin Sodium 135 L Potassium Chloride 96.3 L Carbon Dioxide 21 L BUN 83 H Creatinine 3.0 H Glucose 135 H POC Glucose Lactic Acid Calcium Phosphorus Magnesium Direct Bilirubin AST ALT Alkaline Phosphatase Lactate Dehydrogenase Troponin T C-Reactive Protein Total Protein Albumin Prealbumin Triglycerides Cholesterol LDL Cholesterol Direct HDL Cholesterol Urine pH Urine WBC (Auto) Urine Creatinine Urine Total Protein Fluid Total Protein Vancomycin Trough Rheumatoid Factor Complement C4 Miscellaneous Test Crossmatch 09/09/16 09/09/16 09/09/16 05:41 11:55 14:13 WBC RBC Hgb Hct MCV MCH MCHC RDW Plt Count Lymph % (Auto) [place] % (Auto) Lymph # [place] # Baso # Seg Neutrophils % Seg Neuts % (Manual) Lymphocytes % (Manual) Monocytes % (Manual) Eosinophils % (Manual) Basophils % (Manual) Nucleated RBC % Seg Neutrophils # Seg Neutrophils # Man Lymphocytes # (Manual) Monocytes # (Manual) Eosinophils # (Manual) Basophils # (Manual) PT INR Fibrinogen dRVVT Confirm Interp Factor V Activity POC ABG pH POC ABG pCO2 POC ABG pO2 ABG pO2 ABG HCO3 ABG Base Excess ABG Hemoglobin Oxyhemoglobin Sodium Potassium Chloride Carbon Dioxide BUN Creatinine Glucose POC Glucose 155 H 186 H Lactic Acid Calcium Phosphorus Magnesium Direct Bilirubin AST ALT Alkaline Phosphatase Lactate Dehydrogenase Troponin T C-Reactive Protein Total Protein Albumin Prealbumin Triglycerides Cholesterol LDL Cholesterol Direct HDL Cholesterol Urine pH Urine WBC (Auto) 25.0 H Urine Creatinine Urine Total Protein Fluid Total Protein Vancomycin Trough Rheumatoid Factor Complement C4 Miscellaneous Test Crossmatch 09/09/16 09/09/16 09/10/16 17:33 23:13 05:09 WBC RBC Hgb Hct MCV MCH MCHC RDW Plt Count Lymph % (Auto) [place] % (Auto) Lymph # [place] # Baso # Seg Neutrophils % Seg Neuts % (Manual) Lymphocytes % (Manual) Monocytes % (Manual) Eosinophils % (Manual) Basophils % (Manual) Nucleated RBC % Seg Neutrophils # Seg Neutrophils # Man Lymphocytes # (Manual) Monocytes # (Manual) Eosinophils # (Manual) Basophils # (Manual) PT INR Fibrinogen dRVVT Confirm Interp Factor V Activity POC ABG pH POC ABG pCO2 POC ABG pO2 74 L ABG pO2 ABG HCO3 ABG Base Excess ABG Hemoglobin Oxyhemoglobin Sodium Potassium Chloride Carbon Dioxide BUN Creatinine Glucose POC Glucose 211 H 215 H Lactic Acid Calcium Phosphorus Magnesium Direct Bilirubin AST ALT Alkaline Phosphatase Lactate Dehydrogenase Troponin T C-Reactive Protein Total Protein Albumin Prealbumin Triglycerides Cholesterol LDL Cholesterol Direct HDL Cholesterol Urine pH Urine WBC (Auto) Urine Creatinine Urine Total Protein Fluid Total Protein Vancomycin Trough Rheumatoid Factor Complement C4 Miscellaneous Test Crossmatch 09/10/16 09/10/16 09/10/16 05:17 05:17 11:31 WBC 15.8 H RBC 3.25 L Hgb 7.3 L Hct 22.9 L MCV 71 L MCH 23 L MCHC RDW 18.4 H Plt Count Lymph % (Auto) [place] % (Auto) Lymph # [place] # Baso # Seg Neutrophils % Seg Neuts % (Manual) 91.0 H Lymphocytes % (Manual) 4.0 L Monocytes % (Manual) Eosinophils % (Manual) Basophils % (Manual) Nucleated RBC % Seg Neutrophils # Seg Neutrophils # Man 14.4 H Lymphocytes # (Manual) 0.6 L Monocytes # (Manual) Eosinophils # (Manual) Basophils # (Manual) PT INR Fibrinogen dRVVT Confirm Interp Factor V Activity POC ABG pH POC ABG pCO2 POC ABG pO2 ABG pO2 ABG HCO3 ABG Base Excess ABG Hemoglobin Oxyhemoglobin Sodium Potassium Chloride Carbon Dioxide 21 L BUN 93 H Creatinine 2.9 H Glucose 146 H POC Glucose 188 H Lactic Acid Calcium 8.1 L Phosphorus Magnesium Direct Bilirubin AST ALT Alkaline Phosphatase Lactate Dehydrogenase Troponin T C-Reactive Protein Total Protein Albumin Prealbumin Triglycerides Cholesterol LDL Cholesterol Direct HDL Cholesterol Urine pH Urine WBC (Auto) Urine Creatinine Urine Total Protein Fluid Total Protein Vancomycin Trough Rheumatoid Factor Complement C4 Miscellaneous Test Crossmatch 09/10/16 09/10/16 09/10/16 13:17 17:20 23:32 WBC RBC Hgb Hct MCV MCH MCHC RDW Plt Count Lymph % (Auto) [place] % (Auto) Lymph # [place] # Baso # Seg Neutrophils % Seg Neuts % (Manual) Lymphocytes % (Manual) Monocytes % (Manual) Eosinophils % (Manual) Basophils % (Manual) Nucleated RBC % Seg Neutrophils # Seg Neutrophils # Man Lymphocytes # (Manual) Monocytes # (Manual) Eosinophils # (Manual) Basophils # (Manual) PT INR Fibrinogen dRVVT Confirm Interp Factor V Activity POC ABG pH POC ABG pCO2 POC ABG pO2 ABG pO2 ABG HCO3 ABG Base Excess ABG Hemoglobin Oxyhemoglobin Sodium Potassium Chloride Carbon Dioxide BUN Creatinine Glucose POC Glucose 199 H 186 H Lactic Acid Calcium Phosphorus Magnesium Direct Bilirubin AST ALT Alkaline Phosphatase Lactate Dehydrogenase Troponin T C-Reactive Protein Total Protein Albumin Prealbumin Triglycerides Cholesterol LDL Cholesterol Direct HDL Cholesterol Urine pH Urine WBC (Auto) Urine Creatinine Urine Total Protein Fluid Total Protein Vancomycin Trough Rheumatoid Factor Complement C4 Miscellaneous Test Crossmatch See Detail 09/11/16 09/11/16 09/11/16 05:10 05:10 05:17 WBC 28.4 H RBC Hgb 9.2 L Hct 29.3 L D MCV 73 L MCH 23 L MCHC RDW 18.9 H Plt Count 452 H Lymph % (Auto) [place] % (Auto) Lymph # [place] # Baso # Seg Neutrophils % Seg Neuts % (Manual) 89.5 H Lymphocytes % (Manual) 2.0 L Monocytes % (Manual) Eosinophils % (Manual) Basophils % (Manual) Nucleated RBC % Seg Neutrophils # Seg Neutrophils # Man 25.4 H Lymphocytes # (Manual) 0.6 L Monocytes # (Manual) 1.3 H Eosinophils # (Manual) Basophils # (Manual) PT INR Fibrinogen dRVVT Confirm Interp Factor V Activity POC ABG pH POC ABG pCO2 POC ABG pO2 ABG pO2 ABG HCO3 ABG Base Excess ABG Hemoglobin Oxyhemoglobin Sodium 136 L Potassium Chloride Carbon Dioxide 18 L BUN 107 H Creatinine 2.6 H Glucose 187 H POC Glucose 230 H Lactic Acid Calcium 8.3 L Phosphorus Magnesium Direct Bilirubin AST ALT Alkaline Phosphatase Lactate Dehydrogenase Troponin T C-Reactive Protein Total Protein Albumin Prealbumin Triglycerides Cholesterol LDL Cholesterol Direct HDL Cholesterol Urine pH Urine WBC (Auto) Urine Creatinine Urine Total Protein Fluid Total Protein Vancomycin Trough Rheumatoid Factor Complement C4 Miscellaneous Test Crossmatch 09/11/16 09/11/16 09/11/16 05:55 12:02 17:32 WBC RBC Hgb Hct MCV MCH MCHC RDW Plt Count Lymph % (Auto) [place] % (Auto) Lymph # [place] # Baso # Seg Neutrophils % Seg Neuts % (Manual) Lymphocytes % (Manual) Monocytes % (Manual) Eosinophils % (Manual) Basophils % (Manual) Nucleated RBC % Seg Neutrophils # Seg Neutrophils # Man Lymphocytes # (Manual) Monocytes # (Manual) Eosinophils # (Manual) Basophils # (Manual) PT INR Fibrinogen dRVVT Confirm Interp Factor V Activity POC ABG pH POC ABG pCO2 33.8 L POC ABG pO2 ABG pO2 ABG HCO3 ABG Base Excess ABG Hemoglobin Oxyhemoglobin Sodium Potassium Chloride Carbon Dioxide BUN Creatinine Glucose POC Glucose 191 H 239 H Lactic Acid Calcium Phosphorus Magnesium Direct Bilirubin AST ALT Alkaline Phosphatase Lactate Dehydrogenase Troponin T C-Reactive Protein Total Protein Albumin Prealbumin Triglycerides Cholesterol LDL Cholesterol Direct HDL Cholesterol Urine pH Urine WBC (Auto) Urine Creatinine Urine Total Protein Fluid Total Protein Vancomycin Trough Rheumatoid Factor Complement C4 Miscellaneous Test Crossmatch 09/11/16 09/12/16 09/12/16 23:52 05:09 05:32 WBC RBC Hgb Hct MCV MCH MCHC RDW Plt Count Lymph % (Auto) [place] % (Auto) Lymph # [place] # Baso # Seg Neutrophils % Seg Neuts % (Manual) Lymphocytes % (Manual) Monocytes % (Manual) Eosinophils % (Manual) Basophils % (Manual) Nucleated RBC % Seg Neutrophils # Seg Neutrophils # Man Lymphocytes # (Manual) Monocytes # (Manual) Eosinophils # (Manual) Basophils # (Manual) PT INR Fibrinogen dRVVT Confirm Interp Factor V Activity POC ABG pH POC ABG pCO2 34.6 L POC ABG pO2 ABG pO2 ABG HCO3 ABG Base Excess ABG Hemoglobin Oxyhemoglobin Sodium Potassium Chloride Carbon Dioxide BUN Creatinine Glucose POC Glucose 265 H 184 H Lactic Acid Calcium Phosphorus Magnesium Direct Bilirubin AST ALT Alkaline Phosphatase Lactate Dehydrogenase Troponin T C-Reactive Protein Total Protein Albumin Prealbumin Triglycerides Cholesterol LDL Cholesterol Direct HDL Cholesterol Urine pH Urine WBC (Auto) Urine Creatinine Urine Total Protein Fluid Total Protein Vancomycin Trough Rheumatoid Factor Complement C4 Miscellaneous Test Crossmatch 09/12/16 09/12/16 09/12/16 06:45 06:45 07:22 WBC 31.7 H RBC 3.54 L Hgb 8.3 L Hct 25.9 L MCV 73 L MCH 23 L MCHC RDW 18.9 H Plt Count Lymph % (Auto) [place] % (Auto) Lymph # [place] # Baso # Seg Neutrophils % Seg Neuts % (Manual) 88.5 H Lymphocytes % (Manual) 4.5 L Monocytes % (Manual) Eosinophils % (Manual) Basophils % (Manual) Nucleated RBC % Seg Neutrophils # Seg Neutrophils # Man 28.1 H Lymphocytes # (Manual) Monocytes # (Manual) 1.0 H Eosinophils # (Manual) Basophils # (Manual) PT INR Fibrinogen dRVVT Confirm Interp Factor V Activity POC ABG pH POC ABG pCO2 POC ABG pO2 ABG pO2 ABG HCO3 ABG Base Excess ABG Hemoglobin Oxyhemoglobin Sodium Potassium Chloride Carbon Dioxide 20 L BUN 115 H Creatinine 2.7 H Glucose 165 H POC Glucose Lactic Acid Calcium 8.0 L Phosphorus Magnesium Direct Bilirubin AST ALT Alkaline Phosphatase Lactate Dehydrogenase Troponin T C-Reactive Protein Total Protein Albumin Prealbumin Triglycerides 217 H Cholesterol LDL Cholesterol Direct HDL Cholesterol Urine pH Urine WBC (Auto) Urine Creatinine Urine Total Protein Fluid Total Protein Vancomycin Trough Rheumatoid Factor Complement C4 Miscellaneous Test Crossmatch 09/12/16 09/12/16 09/12/16 07:22 09:59 12:21 WBC RBC Hgb Hct MCV MCH MCHC RDW Plt Count Lymph % (Auto) [place] % (Auto) Lymph # [place] # Baso # Seg Neutrophils % Seg Neuts % (Manual) Lymphocytes % (Manual) Monocytes % (Manual) Eosinophils % (Manual) Basophils % (Manual) Nucleated RBC % Seg Neutrophils # Seg Neutrophils # Man Lymphocytes # (Manual) Monocytes # (Manual) Eosinophils # (Manual) Basophils # (Manual) PT INR Fibrinogen dRVVT Confirm Interp Positive H Factor V Activity POC ABG pH POC ABG pCO2 POC ABG pO2 ABG pO2 ABG HCO3 ABG Base Excess ABG Hemoglobin Oxyhemoglobin Sodium Potassium Chloride Carbon Dioxide BUN Creatinine Glucose POC Glucose 224 H Lactic Acid Calcium Phosphorus Magnesium Direct Bilirubin AST ALT Alkaline Phosphatase Lactate Dehydrogenase Troponin T C-Reactive Protein 1.70 H Total Protein Albumin Prealbumin Triglycerides Cholesterol LDL Cholesterol Direct HDL Cholesterol Urine pH Urine WBC (Auto) Urine Creatinine Urine Total Protein Fluid Total Protein Vancomycin Trough Rheumatoid Factor Complement C4 Miscellaneous Test Crossmatch 09/12/16 09/12/16 09/13/16 16:51 23:28 04:00 WBC 45.0 H* RBC Hgb 9.4 L Hct MCV 75 L MCH 23 L MCHC RDW 19.0 H Plt Count 470 H Lymph % (Auto) [place] % (Auto) Lymph # [place] # Baso # Seg Neutrophils % Seg Neuts % (Manual) 89.0 H Lymphocytes % (Manual) 5.0 L Monocytes % (Manual) Eosinophils % (Manual) Basophils % (Manual) Nucleated RBC % Seg Neutrophils # Seg Neutrophils # Man 40.1 H Lymphocytes # (Manual) Monocytes # (Manual) Eosinophils # (Manual) Basophils # (Manual) PT INR Fibrinogen dRVVT Confirm Interp Factor V Activity POC ABG pH POC ABG pCO2 POC ABG pO2 ABG pO2 ABG HCO3 ABG Base Excess ABG Hemoglobin Oxyhemoglobin Sodium Potassium Chloride Carbon Dioxide BUN Creatinine Glucose POC Glucose 169 H 150 H Lactic Acid Calcium Phosphorus Magnesium Direct Bilirubin AST ALT Alkaline Phosphatase Lactate Dehydrogenase Troponin T C-Reactive Protein Total Protein Albumin Prealbumin Triglycerides Cholesterol LDL Cholesterol Direct HDL Cholesterol Urine pH Urine WBC (Auto) Urine Creatinine Urine Total Protein Fluid Total Protein Vancomycin Trough Rheumatoid Factor Complement C4 Miscellaneous Test Crossmatch 09/13/16 09/13/16 09/13/16 04:00 11:26 17:31 WBC RBC Hgb Hct MCV MCH MCHC RDW Plt Count Lymph % (Auto) [place] % (Auto) Lymph # [place] # Baso # Seg Neutrophils % Seg Neuts % (Manual) Lymphocytes % (Manual) Monocytes % (Manual) Eosinophils % (Manual) Basophils % (Manual) Nucleated RBC % Seg Neutrophils # Seg Neutrophils # Man Lymphocytes # (Manual) Monocytes # (Manual) Eosinophils # (Manual) Basophils # (Manual) PT INR Fibrinogen dRVVT Confirm Interp Factor V Activity POC ABG pH POC ABG pCO2 POC ABG pO2 ABG pO2 ABG HCO3 ABG Base Excess ABG Hemoglobin Oxyhemoglobin Sodium Potassium Chloride Carbon Dioxide 20 L BUN 116 H Creatinine 3.0 H Glucose 172 H POC Glucose 140 H 183 H Lactic Acid Calcium Phosphorus Magnesium Direct Bilirubin AST ALT Alkaline Phosphatase Lactate Dehydrogenase Troponin T C-Reactive Protein Total Protein 6.2 L Albumin 2.9 L Prealbumin Triglycerides Cholesterol LDL Cholesterol Direct HDL Cholesterol Urine pH Urine WBC (Auto) Urine Creatinine Urine Total Protein Fluid Total Protein Vancomycin Trough Rheumatoid Factor Complement C4 Miscellaneous Test Crossmatch 09/13/16 09/14/16 09/14/16 23:23 04:06 04:07 WBC 29.4 H RBC Hgb 8.9 L Hct 27.3 L MCV 75 L MCH 24 L MCHC RDW 19.1 H Plt Count Lymph % (Auto) [place] % (Auto) Lymph # [place] # Baso # Seg Neutrophils % Seg Neuts % (Manual) 84.0 H Lymphocytes % (Manual) 6.0 L Monocytes % (Manual) 9.0 H Eosinophils % (Manual) Basophils % (Manual) Nucleated RBC % Seg Neutrophils # Seg Neutrophils # Man 24.7 H Lymphocytes # (Manual) Monocytes # (Manual) 2.6 H Eosinophils # (Manual) Basophils # (Manual) PT INR Fibrinogen dRVVT Confirm Interp Factor V Activity POC ABG pH 7.342 L POC ABG pCO2 POC ABG pO2 116 H ABG pO2 ABG HCO3 ABG Base Excess ABG Hemoglobin Oxyhemoglobin Sodium Potassium Chloride Carbon Dioxide BUN Creatinine Glucose POC Glucose 154 H Lactic Acid Calcium Phosphorus Magnesium Direct Bilirubin AST ALT Alkaline Phosphatase Lactate Dehydrogenase Troponin T C-Reactive Protein Total Protein Albumin Prealbumin Triglycerides Cholesterol LDL Cholesterol Direct HDL Cholesterol Urine pH Urine WBC (Auto) Urine Creatinine Urine Total Protein Fluid Total Protein Vancomycin Trough Rheumatoid Factor Complement C4 Miscellaneous Test Crossmatch 09/14/16 09/14/16 09/14/16 04:07 05:29 12:19 WBC RBC Hgb Hct MCV MCH MCHC RDW Plt Count Lymph % (Auto) [place] % (Auto) Lymph # [place] # Baso # Seg Neutrophils % Seg Neuts % (Manual) Lymphocytes % (Manual) Monocytes % (Manual) Eosinophils % (Manual) Basophils % (Manual) Nucleated RBC % Seg Neutrophils # Seg Neutrophils # Man Lymphocytes # (Manual) Monocytes # (Manual) Eosinophils # (Manual) Basophils # (Manual) PT INR Fibrinogen dRVVT Confirm Interp Factor V Activity POC ABG pH POC ABG pCO2 POC ABG pO2 ABG pO2 ABG HCO3 ABG Base Excess ABG Hemoglobin Oxyhemoglobin Sodium 136 L Potassium Chloride Carbon Dioxide 18 L BUN 121 H Creatinine 2.8 H Glucose 214 H POC Glucose 239 H 181 H Lactic Acid Calcium Phosphorus Magnesium Direct Bilirubin AST ALT Alkaline Phosphatase Lactate Dehydrogenase Troponin T C-Reactive Protein Total Protein Albumin Prealbumin Triglycerides Cholesterol LDL Cholesterol Direct HDL Cholesterol Urine pH Urine WBC (Auto) Urine Creatinine Urine Total Protein Fluid Total Protein Vancomycin Trough Rheumatoid Factor Complement C4 Miscellaneous Test Crossmatch 09/14/16 09/14/16 09/15/16 18:12 23:37 05:00 WBC 26.1 H RBC 3.05 L Hgb 7.2 L Hct 22.9 L MCV 75 L MCH 24 L MCHC RDW 19.0 H Plt Count Lymph % (Auto) [place] % (Auto) Lymph # [place] # Baso # Seg Neutrophils % Seg Neuts % (Manual) Lymphocytes % (Manual) Monocytes % (Manual) Eosinophils % (Manual) Basophils % (Manual) Nucleated RBC % Seg Neutrophils # Seg Neutrophils # Man Lymphocytes # (Manual) Monocytes # (Manual) Eosinophils # (Manual) Basophils # (Manual) PT INR Fibrinogen dRVVT Confirm Interp Factor V Activity POC ABG pH POC ABG pCO2 POC ABG pO2 ABG pO2 ABG HCO3 ABG Base Excess ABG Hemoglobin Oxyhemoglobin Sodium Potassium Chloride Carbon Dioxide BUN Creatinine Glucose POC Glucose 266 H 154 H Lactic Acid Calcium Phosphorus Magnesium Direct Bilirubin AST ALT Alkaline Phosphatase Lactate Dehydrogenase Troponin T C-Reactive Protein Total Protein Albumin Prealbumin Triglycerides Cholesterol LDL Cholesterol Direct HDL Cholesterol Urine pH Urine WBC (Auto) Urine Creatinine Urine Total Protein Fluid Total Protein Vancomycin Trough Rheumatoid Factor Complement C4 Miscellaneous Test Crossmatch 09/15/16 09/15/16 09/15/16 05:00 05:17 12:45 WBC RBC Hgb Hct MCV MCH MCHC RDW Plt Count Lymph % (Auto) [place] % (Auto) Lymph # [place] # Baso # Seg Neutrophils % Seg Neuts % (Manual) Lymphocytes % (Manual) Monocytes % (Manual) Eosinophils % (Manual) Basophils % (Manual) Nucleated RBC % Seg Neutrophils # Seg Neutrophils # Man Lymphocytes # (Manual) Monocytes # (Manual) Eosinophils # (Manual) Basophils # (Manual) PT INR Fibrinogen dRVVT Confirm Interp Factor V Activity POC ABG pH POC ABG pCO2 POC ABG pO2 ABG pO2 ABG HCO3 ABG Base Excess ABG Hemoglobin Oxyhemoglobin Sodium Potassium 5.2 H Chloride Carbon Dioxide 18 L BUN 139 H Creatinine 3.7 H Glucose 227 H POC Glucose 226 H 244 H Lactic Acid Calcium 8.3 L Phosphorus Magnesium Direct Bilirubin AST ALT Alkaline Phosphatase Lactate Dehydrogenase Troponin T C-Reactive Protein Total Protein Albumin Prealbumin Triglycerides Cholesterol LDL Cholesterol Direct HDL Cholesterol Urine pH Urine WBC (Auto) Urine Creatinine Urine Total Protein Fluid Total Protein Vancomycin Trough Rheumatoid Factor Complement C4 Miscellaneous Test Crossmatch 09/15/16 09/15/16 09/15/16 14:32 17:33 23:35 WBC RBC Hgb Hct MCV MCH MCHC RDW Plt Count Lymph % (Auto) [place] % (Auto) Lymph # [place] # Baso # Seg Neutrophils % Seg Neuts % (Manual) Lymphocytes % (Manual) Monocytes % (Manual) Eosinophils % (Manual) Basophils % (Manual) Nucleated RBC % Seg Neutrophils # Seg Neutrophils # Man Lymphocytes # (Manual) Monocytes # (Manual) Eosinophils # (Manual) Basophils # (Manual) PT INR Fibrinogen dRVVT Confirm Interp Factor V Activity POC ABG pH POC ABG pCO2 27.7 L POC ABG pO2 120 H ABG pO2 ABG HCO3 ABG Base Excess ABG Hemoglobin Oxyhemoglobin Sodium Potassium Chloride Carbon Dioxide BUN Creatinine Glucose POC Glucose 232 H 167 H Lactic Acid Calcium Phosphorus Magnesium Direct Bilirubin AST ALT Alkaline Phosphatase Lactate Dehydrogenase Troponin T C-Reactive Protein Total Protein Albumin Prealbumin Triglycerides Cholesterol LDL Cholesterol Direct HDL Cholesterol Urine pH Urine WBC (Auto) Urine Creatinine Urine Total Protein Fluid Total Protein Vancomycin Trough Rheumatoid Factor Complement C4 Miscellaneous Test Crossmatch 09/16/16 09/16/16 09/16/16 03:58 10:27 10:27 WBC 19.0 H RBC 2.77 L Hgb 6.5 L Hct 20.9 L MCV 76 L MCH 23 L MCHC RDW 19.3 H Plt Count Lymph % (Auto) 11.0 L [place] % (Auto) Lymph # [place] # 1.1 H Baso # Seg Neutrophils % 82.5 H Seg Neuts % (Manual) Lymphocytes % (Manual) Monocytes % (Manual) Eosinophils % (Manual) Basophils % (Manual) Nucleated RBC % Seg Neutrophils # 15.7 H Seg Neutrophils # Man Lymphocytes # (Manual) Monocytes # (Manual) Eosinophils # (Manual) Basophils # (Manual) PT INR Fibrinogen dRVVT Confirm Interp Factor V Activity POC ABG pH POC ABG pCO2 POC ABG pO2 ABG pO2 ABG HCO3 ABG Base Excess ABG Hemoglobin Oxyhemoglobin Sodium Potassium Chloride 109.3 H Carbon Dioxide 18 L BUN 139 H Creatinine 4.1 H Glucose 144 H POC Glucose 146 H Lactic Acid Calcium 8.1 L Phosphorus Magnesium Direct Bilirubin AST ALT Alkaline Phosphatase Lactate Dehydrogenase Troponin T C-Reactive Protein Total Protein Albumin Prealbumin Triglycerides Cholesterol LDL Cholesterol Direct HDL Cholesterol Urine pH Urine WBC (Auto) Urine Creatinine Urine Total Protein Fluid Total Protein Vancomycin Trough Rheumatoid Factor Complement C4 Miscellaneous Test Crossmatch 09/16/16 09/16/16 09/16/16 12:04 12:10 13:55 WBC RBC Hgb Hct MCV MCH MCHC RDW Plt Count Lymph % (Auto) [place] % (Auto) Lymph # [place] # Baso # Seg Neutrophils % Seg Neuts % (Manual) Lymphocytes % (Manual) Monocytes % (Manual) Eosinophils % (Manual) Basophils % (Manual) Nucleated RBC % Seg Neutrophils # Seg Neutrophils # Man Lymphocytes # (Manual) Monocytes # (Manual) Eosinophils # (Manual) Basophils # (Manual) PT INR Fibrinogen dRVVT Confirm Interp Factor V Activity POC ABG pH POC ABG pCO2 32.9 L POC ABG pO2 ABG pO2 ABG HCO3 ABG Base Excess ABG Hemoglobin Oxyhemoglobin Sodium Potassium Chloride Carbon Dioxide BUN Creatinine Glucose POC Glucose 185 H Lactic Acid Calcium Phosphorus Magnesium Direct Bilirubin AST ALT Alkaline Phosphatase Lactate Dehydrogenase Troponin T C-Reactive Protein Total Protein Albumin Prealbumin Triglycerides Cholesterol LDL Cholesterol Direct HDL Cholesterol Urine pH Urine WBC (Auto) Urine Creatinine Urine Total Protein Fluid Total Protein Vancomycin Trough Rheumatoid Factor Complement C4 Miscellaneous Test Crossmatch See Detail 09/16/16 09/16/16 09/16/16 17:55 19:19 23:48 WBC RBC Hgb Hct MCV MCH MCHC RDW Plt Count Lymph % (Auto) [place] % (Auto) Lymph # [place] # Baso # Seg Neutrophils % Seg Neuts % (Manual) Lymphocytes % (Manual) Monocytes % (Manual) Eosinophils % (Manual) Basophils % (Manual) Nucleated RBC % Seg Neutrophils # Seg Neutrophils # Man Lymphocytes # (Manual) Monocytes # (Manual) Eosinophils # (Manual) Basophils # (Manual) PT INR Fibrinogen dRVVT Confirm Interp Factor V Activity POC ABG pH POC ABG pCO2 POC ABG pO2 ABG pO2 ABG HCO3 ABG Base Excess ABG Hemoglobin Oxyhemoglobin Sodium Potassium Chloride Carbon Dioxide BUN Creatinine Glucose POC Glucose 222 H 107 H Lactic Acid Calcium Phosphorus Magnesium Direct Bilirubin AST ALT Alkaline Phosphatase Lactate Dehydrogenase Troponin T C-Reactive Protein Total Protein Albumin Prealbumin Triglycerides Cholesterol LDL Cholesterol Direct HDL Cholesterol Urine pH Urine WBC (Auto) Urine Creatinine 47.4 H Urine Total Protein 16 H Fluid Total Protein Vancomycin Trough Rheumatoid Factor Complement C4 Miscellaneous Test Crossmatch 09/17/16 09/17/16 09/17/16 03:45 03:45 04:55 WBC 19.6 H RBC 3.41 L Hgb 8.5 L Hct 26.7 L MCV 78 L MCH 25 L MCHC RDW 19.9 H Plt Count Lymph % (Auto) 9.3 L [place] % (Auto) Lymph # [place] # 1.2 H Baso # Seg Neutrophils % 83.9 H Seg Neuts % (Manual) Lymphocytes % (Manual) Monocytes % (Manual) Eosinophils % (Manual) Basophils % (Manual) Nucleated RBC % Seg Neutrophils # 16.4 H Seg Neutrophils # Man Lymphocytes # (Manual) Monocytes # (Manual) Eosinophils # (Manual) Basophils # (Manual) PT INR Fibrinogen dRVVT Confirm Interp Factor V Activity POC ABG pH POC ABG pCO2 POC ABG pO2 ABG pO2 ABG HCO3 ABG Base Excess ABG Hemoglobin Oxyhemoglobin Sodium 146 H Potassium 5.1 H Chloride 110.9 H Carbon Dioxide 16 L BUN 146 H Creatinine 4.0 H Glucose 108 H POC Glucose 133 H Lactic Acid Calcium Phosphorus Magnesium 3.00 H Direct Bilirubin AST ALT Alkaline Phosphatase Lactate Dehydrogenase Troponin T C-Reactive Protein Total Protein Albumin Prealbumin Triglycerides Cholesterol LDL Cholesterol Direct HDL Cholesterol Urine pH Urine WBC (Auto) Urine Creatinine Urine Total Protein Fluid Total Protein Vancomycin Trough Rheumatoid Factor Complement C4 Miscellaneous Test Crossmatch 09/17/16 09/17/16 09/17/16 11:15 17:33 23:47 WBC RBC Hgb Hct MCV MCH MCHC RDW Plt Count Lymph % (Auto) [place] % (Auto) Lymph # [place] # Baso # Seg Neutrophils % Seg Neuts % (Manual) Lymphocytes % (Manual) Monocytes % (Manual) Eosinophils % (Manual) Basophils % (Manual) Nucleated RBC % Seg Neutrophils # Seg Neutrophils # Man Lymphocytes # (Manual) Monocytes # (Manual) Eosinophils # (Manual) Basophils # (Manual) PT INR Fibrinogen dRVVT Confirm Interp Factor V Activity POC ABG pH POC ABG pCO2 POC ABG pO2 ABG pO2 ABG HCO3 ABG Base Excess ABG Hemoglobin Oxyhemoglobin Sodium Potassium Chloride Carbon Dioxide BUN Creatinine Glucose POC Glucose 176 H 246 H 148 H Lactic Acid Calcium Phosphorus Magnesium Direct Bilirubin AST ALT Alkaline Phosphatase Lactate Dehydrogenase Troponin T C-Reactive Protein Total Protein Albumin Prealbumin Triglycerides Cholesterol LDL Cholesterol Direct HDL Cholesterol Urine pH Urine WBC (Auto) Urine Creatinine Urine Total Protein Fluid Total Protein Vancomycin Trough Rheumatoid Factor Complement C4 Miscellaneous Test Crossmatch 09/18/16 09/18/16 09/18/16 05:33 08:31 08:31 WBC 18.0 H RBC 3.17 L Hgb 9.0 L Hct 25.7 L MCV MCH MCHC 35 H RDW 20.4 H Plt Count Lymph % (Auto) [place] % (Auto) Lymph # [place] # Baso # Seg Neutrophils % Seg Neuts % (Manual) Lymphocytes % (Manual) Monocytes % (Manual) Eosinophils % (Manual) Basophils % (Manual) Nucleated RBC % Seg Neutrophils # Seg Neutrophils # Man Lymphocytes # (Manual) Monocytes # (Manual) Eosinophils # (Manual) Basophils # (Manual) PT INR Fibrinogen dRVVT Confirm Interp Factor V Activity POC ABG pH POC ABG pCO2 POC ABG pO2 ABG pO2 ABG HCO3 ABG Base Excess ABG Hemoglobin Oxyhemoglobin Sodium Potassium Chloride Carbon Dioxide 15 L BUN 124 H Creatinine 3.8 H Glucose POC Glucose 120 H Lactic Acid Calcium 8.1 L Phosphorus Magnesium Direct Bilirubin AST ALT Alkaline Phosphatase Lactate Dehydrogenase Troponin T C-Reactive Protein Total Protein Albumin Prealbumin Triglycerides Cholesterol LDL Cholesterol Direct HDL Cholesterol Urine pH Urine WBC (Auto) Urine Creatinine Urine Total Protein Fluid Total Protein Vancomycin Trough Rheumatoid Factor Complement C4 Miscellaneous Test Crossmatch 09/18/16 09/18/16 09/18/16 12:03 15:34 17:50 WBC RBC Hgb Hct MCV MCH MCHC RDW Plt Count Lymph % (Auto) [place] % (Auto) Lymph # [place] # Baso # Seg Neutrophils % Seg Neuts % (Manual) Lymphocytes % (Manual) Monocytes % (Manual) Eosinophils % (Manual) Basophils % (Manual) Nucleated RBC % Seg Neutrophils # Seg Neutrophils # Man Lymphocytes # (Manual) Monocytes # (Manual) Eosinophils # (Manual) Basophils # (Manual) PT INR Fibrinogen dRVVT Confirm Interp Factor V Activity POC ABG pH POC ABG pCO2 25.7 L POC ABG pO2 66 L ABG pO2 ABG HCO3 ABG Base Excess ABG Hemoglobin Oxyhemoglobin Sodium Potassium Chloride Carbon Dioxide BUN Creatinine Glucose POC Glucose 156 H 220 H Lactic Acid Calcium Phosphorus Magnesium Direct Bilirubin AST ALT Alkaline Phosphatase Lactate Dehydrogenase Troponin T C-Reactive Protein Total Protein Albumin Prealbumin Triglycerides Cholesterol LDL Cholesterol Direct HDL Cholesterol Urine pH Urine WBC (Auto) Urine Creatinine Urine Total Protein Fluid Total Protein Vancomycin Trough Rheumatoid Factor Complement C4 Miscellaneous Test Crossmatch 09/19/16 09/19/16 09/19/16 06:21 09:50 09:50 WBC 17.1 H RBC 3.49 L Hgb 9.0 L Hct 28.1 L MCV MCH 26 L MCHC RDW 20.8 H Plt Count Lymph % (Auto) 11.5 L [place] % (Auto) 7.5 H Lymph # [place] # 1.3 H Baso # Seg Neutrophils % 79.8 H Seg Neuts % (Manual) Lymphocytes % (Manual) Monocytes % (Manual) Eosinophils % (Manual) Basophils % (Manual) Nucleated RBC % Seg Neutrophils # 13.7 H Seg Neutrophils # Man Lymphocytes # (Manual) Monocytes # (Manual) Eosinophils # (Manual) Basophils # (Manual) PT INR Fibrinogen dRVVT Confirm Interp Factor V Activity POC ABG pH POC ABG pCO2 POC ABG pO2 ABG pO2 ABG HCO3 ABG Base Excess ABG Hemoglobin Oxyhemoglobin Sodium Potassium Chloride 108.6 H Carbon Dioxide 15 L BUN 125 H Creatinine 4.1 H Glucose 124 H POC Glucose 119 H Lactic Acid Calcium Phosphorus Magnesium Direct Bilirubin AST ALT Alkaline Phosphatase Lactate Dehydrogenase Troponin T C-Reactive Protein Total Protein Albumin Prealbumin Triglycerides Cholesterol LDL Cholesterol Direct HDL Cholesterol Urine pH Urine WBC (Auto) Urine Creatinine Urine Total Protein Fluid Total Protein Vancomycin Trough Rheumatoid Factor Complement C4 Miscellaneous Test Crossmatch 09/19/16 09/19/16 09/19/16 11:25 17:53 23:36 WBC RBC Hgb Hct MCV MCH MCHC RDW Plt Count Lymph % (Auto) [place] % (Auto) Lymph # [place] # Baso # Seg Neutrophils % Seg Neuts % (Manual) Lymphocytes % (Manual) Monocytes % (Manual) Eosinophils % (Manual) Basophils % (Manual) Nucleated RBC % Seg Neutrophils # Seg Neutrophils # Man Lymphocytes # (Manual) Monocytes # (Manual) Eosinophils # (Manual) Basophils # (Manual) PT INR Fibrinogen dRVVT Confirm Interp Factor V Activity POC ABG pH POC ABG pCO2 POC ABG pO2 ABG pO2 ABG HCO3 ABG Base Excess ABG Hemoglobin Oxyhemoglobin Sodium Potassium Chloride Carbon Dioxide BUN Creatinine Glucose POC Glucose 160 H 245 H 121 H Lactic Acid Calcium Phosphorus Magnesium Direct Bilirubin AST ALT Alkaline Phosphatase Lactate Dehydrogenase Troponin T C-Reactive Protein Total Protein Albumin Prealbumin Triglycerides Cholesterol LDL Cholesterol Direct HDL Cholesterol Urine pH Urine WBC (Auto) Urine Creatinine Urine Total Protein Fluid Total Protein Vancomycin Trough Rheumatoid Factor Complement C4 Miscellaneous Test Crossmatch 09/20/16 09/20/16 09/20/16 04:10 04:10 04:10 WBC 17.0 H RBC 3.21 L Hgb 8.2 L Hct 25.5 L MCV MCH 26 L MCHC RDW 20.9 H Plt Count Lymph % (Auto) [place] % (Auto) Lymph # [place] # Baso # Seg Neutrophils % Seg Neuts % (Manual) Lymphocytes % (Manual) Monocytes % (Manual) Eosinophils % (Manual) Basophils % (Manual) Nucleated RBC % Seg Neutrophils # Seg Neutrophils # Man Lymphocytes # (Manual) Monocytes # (Manual) Eosinophils # (Manual) Basophils # (Manual) PT INR Fibrinogen dRVVT Confirm Interp Factor V Activity POC ABG pH POC ABG pCO2 POC ABG pO2 ABG pO2 ABG HCO3 ABG Base Excess ABG Hemoglobin Oxyhemoglobin Sodium Potassium Chloride 111.0 H Carbon Dioxide 16 L BUN 129 H Creatinine 3.7 H Glucose 115 H POC Glucose Lactic Acid Calcium 8.2 L Phosphorus Magnesium Direct Bilirubin AST ALT Alkaline Phosphatase Lactate Dehydrogenase Troponin T C-Reactive Protein Total Protein Albumin Prealbumin Triglycerides 243 H Cholesterol LDL Cholesterol Direct HDL Cholesterol Urine pH Urine WBC (Auto) Urine Creatinine Urine Total Protein Fluid Total Protein Vancomycin Trough Rheumatoid Factor Complement C4 Miscellaneous Test Crossmatch 09/20/16 09/20/16 09/20/16 05:40 11:52 16:50 WBC RBC Hgb Hct MCV MCH MCHC RDW Plt Count Lymph % (Auto) [place] % (Auto) Lymph # [place] # Baso # Seg Neutrophils % Seg Neuts % (Manual) Lymphocytes % (Manual) Monocytes % (Manual) Eosinophils % (Manual) Basophils % (Manual) Nucleated RBC % Seg Neutrophils # Seg Neutrophils # Man Lymphocytes # (Manual) Monocytes # (Manual) Eosinophils # (Manual) Basophils # (Manual) PT INR Fibrinogen dRVVT Confirm Interp Factor V Activity POC ABG pH POC ABG pCO2 POC ABG pO2 ABG pO2 ABG HCO3 ABG Base Excess ABG Hemoglobin Oxyhemoglobin Sodium Potassium Chloride Carbon Dioxide BUN Creatinine Glucose POC Glucose 131 H 183 H 236 H Lactic Acid Calcium Phosphorus Magnesium Direct Bilirubin AST ALT Alkaline Phosphatase Lactate Dehydrogenase Troponin T C-Reactive Protein Total Protein Albumin Prealbumin Triglycerides Cholesterol LDL Cholesterol Direct HDL Cholesterol Urine pH Urine WBC (Auto) Urine Creatinine Urine Total Protein Fluid Total Protein Vancomycin Trough Rheumatoid Factor Complement C4 Miscellaneous Test Crossmatch 09/20/16 09/21/16 09/21/16 23:51 03:30 04:44 WBC RBC Hgb Hct MCV MCH MCHC RDW Plt Count Lymph % (Auto) [place] % (Auto) Lymph # [place] # Baso # Seg Neutrophils % Seg Neuts % (Manual) Lymphocytes % (Manual) Monocytes % (Manual) Eosinophils % (Manual) Basophils % (Manual) Nucleated RBC % Seg Neutrophils # Seg Neutrophils # Man Lymphocytes # (Manual) Monocytes # (Manual) Eosinophils # (Manual) Basophils # (Manual) PT INR Fibrinogen dRVVT Confirm Interp Factor V Activity POC ABG pH POC ABG pCO2 POC ABG pO2 ABG pO2 ABG HCO3 ABG Base Excess ABG Hemoglobin Oxyhemoglobin Sodium Potassium Chloride Carbon Dioxide BUN Creatinine Glucose POC Glucose 114 H 141 H Lactic Acid Calcium Phosphorus Magnesium 2.70 H Direct Bilirubin AST ALT Alkaline Phosphatase Lactate Dehydrogenase Troponin T C-Reactive Protein Total Protein Albumin Prealbumin Triglycerides Cholesterol LDL Cholesterol Direct HDL Cholesterol Urine pH Urine WBC (Auto) Urine Creatinine Urine Total Protein Fluid Total Protein Vancomycin Trough Rheumatoid Factor Complement C4 Miscellaneous Test Crossmatch 09/21/16 09/21/16 09/21/16 07:45 07:45 10:01 WBC 13.8 H RBC 2.94 L Hgb 7.5 L Hct 23.5 L MCV MCH 26 L MCHC RDW 21.2 H Plt Count Lymph % (Auto) 6.9 L [place] % (Auto) 9.4 H Lymph # 0.9 L [place] # 1.3 H Baso # Seg Neutrophils % 83.2 H Seg Neuts % (Manual) Lymphocytes % (Manual) Monocytes % (Manual) Eosinophils % (Manual) Basophils % (Manual) Nucleated RBC % Seg Neutrophils # 11.5 H Seg Neutrophils # Man Lymphocytes # (Manual) Monocytes # (Manual) Eosinophils # (Manual) Basophils # (Manual) PT INR Fibrinogen dRVVT Confirm Interp Factor V Activity POC ABG pH 7.308 L POC ABG pCO2 31.9 L POC ABG pO2 148 H ABG pO2 ABG HCO3 ABG Base Excess ABG Hemoglobin Oxyhemoglobin Sodium 147 H Potassium Chloride 114.2 H Carbon Dioxide 15 L BUN 120 H Creatinine 3.9 H Glucose 156 H POC Glucose Lactic Acid Calcium 8.2 L Phosphorus Magnesium Direct Bilirubin AST ALT Alkaline Phosphatase Lactate Dehydrogenase Troponin T C-Reactive Protein Total Protein Albumin Prealbumin Triglycerides Cholesterol LDL Cholesterol Direct HDL Cholesterol Urine pH Urine WBC (Auto) Urine Creatinine Urine Total Protein Fluid Total Protein Vancomycin Trough Rheumatoid Factor Complement C4 Miscellaneous Test Crossmatch 09/21/16 09/21/16 09/21/16 12:00 12:03 13:00 WBC RBC Hgb Hct MCV MCH MCHC RDW Plt Count Lymph % (Auto) [place] % (Auto) Lymph # [place] # Baso # Seg Neutrophils % Seg Neuts % (Manual) Lymphocytes % (Manual) Monocytes % (Manual) Eosinophils % (Manual) Basophils % (Manual) Nucleated RBC % Seg Neutrophils # Seg Neutrophils # Man Lymphocytes # (Manual) Monocytes # (Manual) Eosinophils # (Manual) Basophils # (Manual) PT INR Fibrinogen dRVVT Confirm Interp Factor V Activity POC ABG pH POC ABG pCO2 POC ABG pO2 ABG pO2 ABG HCO3 ABG Base Excess ABG Hemoglobin Oxyhemoglobin Sodium Potassium Chloride Carbon Dioxide BUN Creatinine Glucose POC Glucose 163 H Lactic Acid Calcium Phosphorus Magnesium Direct Bilirubin AST ALT Alkaline Phosphatase Lactate Dehydrogenase Troponin T C-Reactive Protein Total Protein Albumin Prealbumin Triglycerides Cholesterol LDL Cholesterol Direct HDL Cholesterol Urine pH Urine WBC (Auto) Urine Creatinine 54.8 H Urine Total Protein Fluid Total Protein Vancomycin Trough 2.3 L Rheumatoid Factor Complement C4 Miscellaneous Test Crossmatch 09/21/16 09/21/16 09/22/16 16:51 23:17 06:27 WBC RBC Hgb Hct MCV MCH MCHC RDW Plt Count Lymph % (Auto) [place] % (Auto) Lymph # [place] # Baso # Seg Neutrophils % Seg Neuts % (Manual) Lymphocytes % (Manual) Monocytes % (Manual) Eosinophils % (Manual) Basophils % (Manual) Nucleated RBC % Seg Neutrophils # Seg Neutrophils # Man Lymphocytes # (Manual) Monocytes # (Manual) Eosinophils # (Manual) Basophils # (Manual) PT INR Fibrinogen dRVVT Confirm Interp Factor V Activity POC ABG pH POC ABG pCO2 POC ABG pO2 ABG pO2 ABG HCO3 ABG Base Excess ABG Hemoglobin Oxyhemoglobin Sodium Potassium Chloride Carbon Dioxide BUN Creatinine Glucose POC Glucose 206 H 114 H 115 H Lactic Acid Calcium Phosphorus Magnesium Direct Bilirubin AST ALT Alkaline Phosphatase Lactate Dehydrogenase Troponin T C-Reactive Protein Total Protein Albumin Prealbumin Triglycerides Cholesterol LDL Cholesterol Direct HDL Cholesterol Urine pH Urine WBC (Auto) Urine Creatinine Urine Total Protein Fluid Total Protein Vancomycin Trough Rheumatoid Factor Complement C4 Miscellaneous Test Crossmatch 09/22/16 09/22/16 09/22/16 07:50 07:50 12:00 WBC 17.8 H RBC 3.04 L Hgb 8.0 L Hct 24.7 L MCV MCH 26 L MCHC RDW 21.6 H Plt Count Lymph % (Auto) [place] % (Auto) Lymph # [place] # Baso # Seg Neutrophils % Seg Neuts % (Manual) Lymphocytes % (Manual) Monocytes % (Manual) Eosinophils % (Manual) Basophils % (Manual) Nucleated RBC % Seg Neutrophils # Seg Neutrophils # Man Lymphocytes # (Manual) Monocytes # (Manual) Eosinophils # (Manual) Basophils # (Manual) PT INR Fibrinogen dRVVT Confirm Interp Factor V Activity POC ABG pH POC ABG pCO2 POC ABG pO2 ABG pO2 ABG HCO3 ABG Base Excess ABG Hemoglobin Oxyhemoglobin Sodium 150 H Potassium Chloride 118.2 H Carbon Dioxide 14 L BUN 111 H Creatinine 3.7 H Glucose 157 H POC Glucose 183 H Lactic Acid Calcium Phosphorus Magnesium Direct Bilirubin AST ALT Alkaline Phosphatase Lactate Dehydrogenase Troponin T C-Reactive Protein Total Protein Albumin Prealbumin Triglycerides Cholesterol LDL Cholesterol Direct HDL Cholesterol Urine pH Urine WBC (Auto) Urine Creatinine Urine Total Protein Fluid Total Protein Vancomycin Trough Rheumatoid Factor Complement C4 Miscellaneous Test Crossmatch 09/22/16 09/22/16 09/23/16 17:29 23:10 05:00 WBC 19.2 H RBC 3.13 L Hgb 8.0 L Hct 25.2 L MCV MCH 26 L MCHC RDW 22.1 H Plt Count Lymph % (Auto) [place] % (Auto) Lymph # [place] # Baso # Seg Neutrophils % Seg Neuts % (Manual) 92.0 H Lymphocytes % (Manual) 3.0 L Monocytes % (Manual) Eosinophils % (Manual) Basophils % (Manual) Nucleated RBC % Seg Neutrophils # Seg Neutrophils # Man 17.7 H Lymphocytes # (Manual) 0.6 L Monocytes # (Manual) Eosinophils # (Manual) Basophils # (Manual) PT INR Fibrinogen dRVVT Confirm Interp Factor V Activity POC ABG pH POC ABG pCO2 POC ABG pO2 ABG pO2 ABG HCO3 ABG Base Excess ABG Hemoglobin Oxyhemoglobin Sodium Potassium Chloride Carbon Dioxide BUN Creatinine Glucose POC Glucose 197 H 169 H Lactic Acid Calcium Phosphorus Magnesium Direct Bilirubin AST ALT Alkaline Phosphatase Lactate Dehydrogenase Troponin T C-Reactive Protein Total Protein Albumin Prealbumin Triglycerides Cholesterol LDL Cholesterol Direct HDL Cholesterol Urine pH Urine WBC (Auto) Urine Creatinine Urine Total Protein Fluid Total Protein Vancomycin Trough Rheumatoid Factor Complement C4 Miscellaneous Test Crossmatch 09/23/16 09/23/16 09/23/16 05:00 05:00 05:10 WBC RBC Hgb Hct MCV MCH MCHC RDW Plt Count Lymph % (Auto) [place] % (Auto) Lymph # [place] # Baso # Seg Neutrophils % Seg Neuts % (Manual) Lymphocytes % (Manual) Monocytes % (Manual) Eosinophils % (Manual) Basophils % (Manual) Nucleated RBC % Seg Neutrophils # Seg Neutrophils # Man Lymphocytes # (Manual) Monocytes # (Manual) Eosinophils # (Manual) Basophils # (Manual) PT INR Fibrinogen dRVVT Confirm Interp Factor V Activity POC ABG pH POC ABG pCO2 POC ABG pO2 ABG pO2 ABG HCO3 ABG Base Excess ABG Hemoglobin Oxyhemoglobin Sodium 147 H Potassium 3.2 L Chloride 115.7 H Carbon Dioxide 13 L BUN 111 H Creatinine 3.8 H Glucose 194 H POC Glucose 188 H Lactic Acid Calcium 7.3 L D Phosphorus Magnesium Direct Bilirubin AST ALT Alkaline Phosphatase Lactate Dehydrogenase Troponin T C-Reactive Protein 3.20 H Total Protein Albumin Prealbumin Triglycerides Cholesterol LDL Cholesterol Direct HDL Cholesterol Urine pH Urine WBC (Auto) Urine Creatinine Urine Total Protein Fluid Total Protein Vancomycin Trough Rheumatoid Factor Complement C4 Miscellaneous Test Crossmatch 09/23/16 09/23/16 09/23/16 11:37 12:29 18:01 WBC RBC Hgb Hct MCV MCH MCHC RDW Plt Count Lymph % (Auto) [place] % (Auto) Lymph # [place] # Baso # Seg Neutrophils % Seg Neuts % (Manual) Lymphocytes % (Manual) Monocytes % (Manual) Eosinophils % (Manual) Basophils % (Manual) Nucleated RBC % Seg Neutrophils # Seg Neutrophils # Man Lymphocytes # (Manual) Monocytes # (Manual) Eosinophils # (Manual) Basophils # (Manual) PT INR Fibrinogen dRVVT Confirm Interp Factor V Activity POC ABG pH POC ABG pCO2 18.9 L POC ABG pO2 143 H ABG pO2 ABG HCO3 ABG Base Excess ABG Hemoglobin Oxyhemoglobin Sodium Potassium Chloride Carbon Dioxide BUN Creatinine Glucose POC Glucose 153 H 108 H Lactic Acid Calcium Phosphorus Magnesium Direct Bilirubin AST ALT Alkaline Phosphatase Lactate Dehydrogenase Troponin T C-Reactive Protein Total Protein Albumin Prealbumin Triglycerides Cholesterol LDL Cholesterol Direct HDL Cholesterol Urine pH Urine WBC (Auto) Urine Creatinine Urine Total Protein Fluid Total Protein Vancomycin Trough Rheumatoid Factor Complement C4 Miscellaneous Test Crossmatch 09/23/16 09/23/16 09/24/16 21:19 23:43 05:16 WBC RBC Hgb Hct MCV MCH MCHC RDW Plt Count Lymph % (Auto) [place] % (Auto) Lymph # [place] # Baso # Seg Neutrophils % Seg Neuts % (Manual) Lymphocytes % (Manual) Monocytes % (Manual) Eosinophils % (Manual) Basophils % (Manual) Nucleated RBC % Seg Neutrophils # Seg Neutrophils # Man Lymphocytes # (Manual) Monocytes # (Manual) Eosinophils # (Manual) Basophils # (Manual) PT INR Fibrinogen dRVVT Confirm Interp Factor V Activity POC ABG pH POC ABG pCO2 17.3 L POC ABG pO2 112 H ABG pO2 ABG HCO3 ABG Base Excess ABG Hemoglobin Oxyhemoglobin Sodium Potassium Chloride Carbon Dioxide BUN Creatinine Glucose POC Glucose 143 H 164 H Lactic Acid Calcium Phosphorus Magnesium Direct Bilirubin AST ALT Alkaline Phosphatase Lactate Dehydrogenase Troponin T C-Reactive Protein Total Protein Albumin Prealbumin Triglycerides Cholesterol LDL Cholesterol Direct HDL Cholesterol Urine pH Urine WBC (Auto) Urine Creatinine Urine Total Protein Fluid Total Protein Vancomycin Trough Rheumatoid Factor Complement C4 Miscellaneous Test Crossmatch 09/24/16 09/24/16 09/24/16 05:21 11:58 17:06 WBC RBC Hgb Hct MCV MCH MCHC RDW Plt Count Lymph % (Auto) [place] % (Auto) Lymph # [place] # Baso # Seg Neutrophils % Seg Neuts % (Manual) Lymphocytes % (Manual) Monocytes % (Manual) Eosinophils % (Manual) Basophils % (Manual) Nucleated RBC % Seg Neutrophils # Seg Neutrophils # Man Lymphocytes # (Manual) Monocytes # (Manual) Eosinophils # (Manual) Basophils # (Manual) PT INR Fibrinogen dRVVT Confirm Interp Factor V Activity POC ABG pH POC ABG pCO2 POC ABG pO2 ABG pO2 ABG HCO3 ABG Base Excess ABG Hemoglobin Oxyhemoglobin Sodium Potassium Chloride Carbon Dioxide 10 L BUN 103 H Creatinine 4.3 H Glucose 163 H POC Glucose 173 H 167 H Lactic Acid Calcium 6.5 L Phosphorus Magnesium Direct Bilirubin AST ALT Alkaline Phosphatase Lactate Dehydrogenase Troponin T C-Reactive Protein Total Protein Albumin Prealbumin Triglycerides Cholesterol LDL Cholesterol Direct HDL Cholesterol Urine pH Urine WBC (Auto) Urine Creatinine Urine Total Protein Fluid Total Protein Vancomycin Trough Rheumatoid Factor Complement C4 Miscellaneous Test Crossmatch 09/24/16 09/24/16 09/24/16 20:15 21:02 23:48 WBC RBC Hgb Hct MCV MCH MCHC RDW Plt Count Lymph % (Auto) [place] % (Auto) Lymph # [place] # Baso # Seg Neutrophils % Seg Neuts % (Manual) Lymphocytes % (Manual) Monocytes % (Manual) Eosinophils % (Manual) Basophils % (Manual) Nucleated RBC % Seg Neutrophils # Seg Neutrophils # Man Lymphocytes # (Manual) Monocytes # (Manual) Eosinophils # (Manual) Basophils # (Manual) PT INR Fibrinogen dRVVT Confirm Interp Factor V Activity POC ABG pH 7.288 L POC ABG pCO2 30.2 L 21.5 L POC ABG pO2 32 L 39 L ABG pO2 ABG HCO3 ABG Base Excess ABG Hemoglobin Oxyhemoglobin Sodium Potassium Chloride Carbon Dioxide BUN Creatinine Glucose POC Glucose 109 H Lactic Acid Calcium Phosphorus Magnesium Direct Bilirubin AST ALT Alkaline Phosphatase Lactate Dehydrogenase Troponin T C-Reactive Protein Total Protein Albumin Prealbumin Triglycerides Cholesterol LDL Cholesterol Direct HDL Cholesterol Urine pH Urine WBC (Auto) Urine Creatinine Urine Total Protein Fluid Total Protein Vancomycin Trough Rheumatoid Factor Complement C4 Miscellaneous Test Crossmatch 09/25/16 09/25/16 09/25/16 04:20 04:20 04:20 WBC RBC 2.58 L Hgb 7.0 L Hct 21.0 L MCV MCH 27 L MCHC RDW 23.8 H Plt Count Lymph % (Auto) [place] % (Auto) Lymph # [place] # Baso # Seg Neutrophils % Seg Neuts % (Manual) Lymphocytes % (Manual) 12.0 L Monocytes % (Manual) Eosinophils % (Manual) 7.0 H Basophils % (Manual) 2.0 H Nucleated RBC % Seg Neutrophils # Seg Neutrophils # Man Lymphocytes # (Manual) 0.9 L Monocytes # (Manual) Eosinophils # (Manual) 0.5 H Basophils # (Manual) PT INR Fibrinogen dRVVT Confirm Interp Factor V Activity POC ABG pH POC ABG pCO2 POC ABG pO2 ABG pO2 ABG HCO3 ABG Base Excess ABG Hemoglobin Oxyhemoglobin Sodium Potassium Chloride Carbon Dioxide 15 L BUN 72 H Creatinine 3.8 H Glucose POC Glucose Lactic Acid Calcium 6.0 L Phosphorus 4.60 H Magnesium 1.60 L Direct Bilirubin AST ALT Alkaline Phosphatase Lactate Dehydrogenase Troponin T C-Reactive Protein Total Protein Albumin Prealbumin Triglycerides Cholesterol LDL Cholesterol Direct HDL Cholesterol Urine pH Urine WBC (Auto) Urine Creatinine Urine Total Protein Fluid Total Protein Vancomycin Trough Rheumatoid Factor Complement C4 Miscellaneous Test Crossmatch 09/25/16 09/25/16 09/25/16 04:57 08:02 10:30 WBC RBC Hgb Hct MCV MCH MCHC RDW Plt Count Lymph % (Auto) [place] % (Auto) Lymph # [place] # Baso # Seg Neutrophils % Seg Neuts % (Manual) Lymphocytes % (Manual) Monocytes % (Manual) Eosinophils % (Manual) Basophils % (Manual) Nucleated RBC % Seg Neutrophils # Seg Neutrophils # Man Lymphocytes # (Manual) Monocytes # (Manual) Eosinophils # (Manual) Basophils # (Manual) PT INR Fibrinogen dRVVT Confirm Interp Factor V Activity POC ABG pH POC ABG pCO2 24.7 L POC ABG pO2 152 H ABG pO2 ABG HCO3 ABG Base Excess ABG Hemoglobin Oxyhemoglobin Sodium Potassium Chloride Carbon Dioxide BUN Creatinine Glucose POC Glucose 113 H Lactic Acid Calcium Phosphorus Magnesium Direct Bilirubin AST ALT Alkaline Phosphatase Lactate Dehydrogenase Troponin T C-Reactive Protein Total Protein Albumin Prealbumin Triglycerides Cholesterol LDL Cholesterol Direct HDL Cholesterol Urine pH Urine WBC (Auto) Urine Creatinine Urine Total Protein Fluid Total Protein Vancomycin Trough Rheumatoid Factor Complement C4 Miscellaneous Test Crossmatch See Detail 09/25/16 09/25/16 09/25/16 12:05 17:44 23:47 WBC RBC Hgb Hct MCV MCH MCHC RDW Plt Count Lymph % (Auto) [place] % (Auto) Lymph # [place] # Baso # Seg Neutrophils % Seg Neuts % (Manual) Lymphocytes % (Manual) Monocytes % (Manual) Eosinophils % (Manual) Basophils % (Manual) Nucleated RBC % Seg Neutrophils # Seg Neutrophils # Man Lymphocytes # (Manual) Monocytes # (Manual) Eosinophils # (Manual) Basophils # (Manual) PT INR Fibrinogen dRVVT Confirm Interp Factor V Activity POC ABG pH POC ABG pCO2 POC ABG pO2 ABG pO2 ABG HCO3 ABG Base Excess ABG Hemoglobin Oxyhemoglobin Sodium Potassium Chloride Carbon Dioxide BUN Creatinine Glucose POC Glucose 117 H 119 H 150 H Lactic Acid Calcium Phosphorus Magnesium Direct Bilirubin AST ALT Alkaline Phosphatase Lactate Dehydrogenase Troponin T C-Reactive Protein Total Protein Albumin Prealbumin Triglycerides Cholesterol LDL Cholesterol Direct HDL Cholesterol Urine pH Urine WBC (Auto) Urine Creatinine Urine Total Protein Fluid Total Protein Vancomycin Trough Rheumatoid Factor Complement C4 Miscellaneous Test Crossmatch 09/26/16 09/26/16 09/26/16 04:25 04:25 04:25 WBC RBC 2.65 L Hgb 7.4 L Hct 21.6 L MCV MCH MCHC RDW 22.5 H Plt Count Lymph % (Auto) [place] % (Auto) Lymph # [place] # Baso # Seg Neutrophils % Seg Neuts % (Manual) Lymphocytes % (Manual) 6.0 L Monocytes % (Manual) Eosinophils % (Manual) 11.0 H Basophils % (Manual) Nucleated RBC % Seg Neutrophils # Seg Neutrophils # Man Lymphocytes # (Manual) 0.4 L Monocytes # (Manual) Eosinophils # (Manual) 0.6 H Basophils # (Manual) PT INR Fibrinogen dRVVT Confirm Interp Factor V Activity POC ABG pH POC ABG pCO2 POC ABG pO2 ABG pO2 ABG HCO3 ABG Base Excess ABG Hemoglobin Oxyhemoglobin Sodium Potassium Chloride 97.0 L Carbon Dioxide 19 L BUN 43 H Creatinine 2.6 H Glucose 130 H POC Glucose Lactic Acid 4.40 H* Calcium 6.7 L Phosphorus Magnesium Direct Bilirubin AST ALT Alkaline Phosphatase Lactate Dehydrogenase Troponin T C-Reactive Protein Total Protein Albumin Prealbumin Triglycerides Cholesterol LDL Cholesterol Direct HDL Cholesterol Urine pH Urine WBC (Auto) Urine Creatinine Urine Total Protein Fluid Total Protein Vancomycin Trough Rheumatoid Factor Complement C4 Miscellaneous Test Crossmatch 09/26/16 09/26/16 09/26/16 05:20 11:44 12:12 WBC RBC Hgb Hct MCV MCH MCHC RDW Plt Count Lymph % (Auto) [place] % (Auto) Lymph # [place] # Baso # Seg Neutrophils % Seg Neuts % (Manual) Lymphocytes % (Manual) Monocytes % (Manual) Eosinophils % (Manual) Basophils % (Manual) Nucleated RBC % Seg Neutrophils # Seg Neutrophils # Man Lymphocytes # (Manual) Monocytes # (Manual) Eosinophils # (Manual) Basophils # (Manual) PT INR Fibrinogen dRVVT Confirm Interp Factor V Activity POC ABG pH POC ABG pCO2 27.0 L POC ABG pO2 69 L ABG pO2 ABG HCO3 ABG Base Excess ABG Hemoglobin Oxyhemoglobin Sodium Potassium Chloride Carbon Dioxide BUN Creatinine Glucose POC Glucose 121 H 128 H Lactic Acid Calcium Phosphorus Magnesium Direct Bilirubin AST ALT Alkaline Phosphatase Lactate Dehydrogenase Troponin T C-Reactive Protein Total Protein Albumin Prealbumin Triglycerides Cholesterol LDL Cholesterol Direct HDL Cholesterol Urine pH Urine WBC (Auto) Urine Creatinine Urine Total Protein Fluid Total Protein Vancomycin Trough Rheumatoid Factor Complement C4 Miscellaneous Test Crossmatch 09/26/16 09/26/16 09/27/16 18:31 23:40 08:20 WBC RBC Hgb Hct MCV MCH MCHC RDW Plt Count Lymph % (Auto) [place] % (Auto) Lymph # [place] # Baso # Seg Neutrophils % Seg Neuts % (Manual) Lymphocytes % (Manual) Monocytes % (Manual) Eosinophils % (Manual) Basophils % (Manual) Nucleated RBC % Seg Neutrophils # Seg Neutrophils # Man Lymphocytes # (Manual) Monocytes # (Manual) Eosinophils # (Manual) Basophils # (Manual) PT INR Fibrinogen dRVVT Confirm Interp Factor V Activity POC ABG pH POC ABG pCO2 POC ABG pO2 ABG pO2 ABG HCO3 ABG Base Excess ABG Hemoglobin Oxyhemoglobin Sodium Potassium Chloride Carbon Dioxide BUN Creatinine Glucose POC Glucose 120 H 133 H Lactic Acid 4.10 H* Calcium Phosphorus Magnesium Direct Bilirubin AST ALT Alkaline Phosphatase Lactate Dehydrogenase Troponin T C-Reactive Protein Total Protein Albumin Prealbumin Triglycerides Cholesterol LDL Cholesterol Direct HDL Cholesterol Urine pH Urine WBC (Auto) Urine Creatinine Urine Total Protein Fluid Total Protein Vancomycin Trough Rheumatoid Factor Complement C4 Miscellaneous Test Crossmatch 09/27/16 09/27/16 09/27/16 11:23 15:00 18:15 WBC RBC Hgb Hct MCV MCH MCHC RDW Plt Count Lymph % (Auto) [place] % (Auto) Lymph # [place] # Baso # Seg Neutrophils % Seg Neuts % (Manual) Lymphocytes % (Manual) Monocytes % (Manual) Eosinophils % (Manual) Basophils % (Manual) Nucleated RBC % Seg Neutrophils # Seg Neutrophils # Man Lymphocytes # (Manual) Monocytes # (Manual) Eosinophils # (Manual) Basophils # (Manual) PT INR Fibrinogen dRVVT Confirm Interp Factor V Activity POC ABG pH 7.459 H POC ABG pCO2 27.1 L POC ABG pO2 140 H ABG pO2 ABG HCO3 ABG Base Excess ABG Hemoglobin Oxyhemoglobin Sodium Potassium Chloride Carbon Dioxide BUN Creatinine Glucose POC Glucose 114 H 127 H Lactic Acid Calcium Phosphorus Magnesium Direct Bilirubin AST ALT Alkaline Phosphatase Lactate Dehydrogenase Troponin T C-Reactive Protein Total Protein Albumin Prealbumin Triglycerides Cholesterol LDL Cholesterol Direct HDL Cholesterol Urine pH Urine WBC (Auto) Urine Creatinine Urine Total Protein Fluid Total Protein Vancomycin Trough Rheumatoid Factor Complement C4 Miscellaneous Test Crossmatch 09/27/16 09/27/16 09/28/16 Unknown Unknown 03:45 WBC RBC 2.49 L Hgb 6.8 L Hct 20.7 L MCV MCH 27 L MCHC RDW 22.1 H Plt Count Lymph % (Auto) [place] % (Auto) Lymph # [place] # Baso # Seg Neutrophils % Seg Neuts % (Manual) 32.0 L Lymphocytes % (Manual) 12.0 L Monocytes % (Manual) 11.0 H Eosinophils % (Manual) 10.0 H Basophils % (Manual) Nucleated RBC % Seg Neutrophils # Seg Neutrophils # Man Lymphocytes # (Manual) 1.0 L Monocytes # (Manual) 0.9 H Eosinophils # (Manual) 0.8 H Basophils # (Manual) PT INR Fibrinogen dRVVT Confirm Interp Factor V Activity POC ABG pH POC ABG pCO2 POC ABG pO2 ABG pO2 ABG HCO3 ABG Base Excess ABG Hemoglobin Oxyhemoglobin Sodium 135 L 135 L Potassium 3.5 L Chloride 93.6 L 94.4 L Carbon Dioxide 17 L 21 L BUN 45 H 28 H Creatinine 3.3 H 2.5 H Glucose 106 H POC Glucose Lactic Acid Calcium 7.3 L 7.1 L Phosphorus Magnesium Direct Bilirubin AST ALT Alkaline Phosphatase Lactate Dehydrogenase Troponin T C-Reactive Protein Total Protein Albumin Prealbumin Triglycerides Cholesterol LDL Cholesterol Direct HDL Cholesterol Urine pH Urine WBC (Auto) Urine Creatinine Urine Total Protein Fluid Total Protein Vancomycin Trough Rheumatoid Factor Complement C4 Miscellaneous Test Crossmatch 09/28/16 09/28/16 09/28/16 03:45 07:25 11:58 WBC 13.3 H RBC 3.01 L Hgb 8.4 L Hct 25.0 L MCV MCH MCHC RDW 20.5 H Plt Count 128 L Lymph % (Auto) [place] % (Auto) Lymph # [place] # Baso # Seg Neutrophils % Seg Neuts % (Manual) Lymphocytes % (Manual) 7.0 L Monocytes % (Manual) Eosinophils % (Manual) 6.0 H Basophils % (Manual) Nucleated RBC % Seg Neutrophils # Seg Neutrophils # Man Lymphocytes # (Manual) 0.9 L Monocytes # (Manual) Eosinophils # (Manual) 0.8 H Basophils # (Manual) PT INR Fibrinogen dRVVT Confirm Interp Factor V Activity POC ABG pH POC ABG pCO2 POC ABG pO2 ABG pO2 ABG HCO3 ABG Base Excess ABG Hemoglobin Oxyhemoglobin Sodium Potassium Chloride Carbon Dioxide BUN Creatinine Glucose POC Glucose 121 H Lactic Acid 4.50 H* Calcium Phosphorus Magnesium Direct Bilirubin AST ALT Alkaline Phosphatase Lactate Dehydrogenase Troponin T C-Reactive Protein Total Protein Albumin Prealbumin Triglycerides Cholesterol LDL Cholesterol Direct HDL Cholesterol Urine pH Urine WBC (Auto) Urine Creatinine Urine Total Protein Fluid Total Protein Vancomycin Trough Rheumatoid Factor Complement C4 Miscellaneous Test Crossmatch 09/29/16 09/29/16 09/29/16 06:45 06:45 06:45 WBC 14.9 H RBC 2.74 L Hgb 7.6 L Hct 23.2 L MCV MCH MCHC RDW 20.5 H Plt Count 81 L Lymph % (Auto) [place] % (Auto) Lymph # [place] # Baso # Seg Neutrophils % Seg Neuts % (Manual) 81.0 H Lymphocytes % (Manual) 4.0 L Monocytes % (Manual) Eosinophils % (Manual) Basophils % (Manual) Nucleated RBC % Seg Neutrophils # Seg Neutrophils # Man 12.1 H Lymphocytes # (Manual) 0.6 L Monocytes # (Manual) Eosinophils # (Manual) Basophils # (Manual) PT INR Fibrinogen dRVVT Confirm Interp Factor V Activity POC ABG pH POC ABG pCO2 POC ABG pO2 ABG pO2 ABG HCO3 ABG Base Excess ABG Hemoglobin Oxyhemoglobin Sodium 133 L Potassium 3.4 L Chloride 92.5 L Carbon Dioxide 21 L BUN 33 H Creatinine 3.0 H Glucose POC Glucose Lactic Acid Calcium 6.6 L Phosphorus Magnesium 1.40 L Direct Bilirubin 0.9 H AST ALT Alkaline Phosphatase Lactate Dehydrogenase Troponin T C-Reactive Protein Total Protein 4.3 L Albumin 1.3 L Prealbumin Triglycerides Cholesterol LDL Cholesterol Direct HDL Cholesterol Urine pH Urine WBC (Auto) Urine Creatinine Urine Total Protein Fluid Total Protein Vancomycin Trough Rheumatoid Factor Complement C4 Miscellaneous Test Crossmatch 09/29/16 09/29/16 09/30/16 17:52 20:12 00:07 WBC RBC Hgb Hct MCV MCH MCHC RDW Plt Count Lymph % (Auto) [place] % (Auto) Lymph # [place] # Baso # Seg Neutrophils % Seg Neuts % (Manual) Lymphocytes % (Manual) Monocytes % (Manual) Eosinophils % (Manual) Basophils % (Manual) Nucleated RBC % Seg Neutrophils # Seg Neutrophils # Man Lymphocytes # (Manual) Monocytes # (Manual) Eosinophils # (Manual) Basophils # (Manual) PT INR Fibrinogen dRVVT Confirm Interp Factor V Activity POC ABG pH POC ABG pCO2 POC ABG pO2 ABG pO2 ABG HCO3 ABG Base Excess ABG Hemoglobin Oxyhemoglobin Sodium Potassium Chloride Carbon Dioxide BUN Creatinine Glucose POC Glucose 50 L 51 L Lactic Acid Calcium Phosphorus Magnesium Direct Bilirubin AST ALT Alkaline Phosphatase Lactate Dehydrogenase Troponin T 0.204 H* C-Reactive Protein Total Protein Albumin Prealbumin Triglycerides Cholesterol 31 L LDL Cholesterol Direct 4 L HDL Cholesterol 3 L Urine pH Urine WBC (Auto) Urine Creatinine Urine Total Protein Fluid Total Protein Vancomycin Trough Rheumatoid Factor Complement C4 Miscellaneous Test Crossmatch 08/11/17 08/11/17 08/11/17 01:30 05:15 06:10 WBC RBC Hgb Hct MCV MCH MCHC RDW Plt Count Lymph % (Auto) [place] % (Auto) Lymph # [place] # Baso # Seg Neutrophils % Seg Neuts % (Manual) Lymphocytes % (Manual) Monocytes % (Manual) Eosinophils % (Manual) Basophils % (Manual) Nucleated RBC % Seg Neutrophils # Seg Neutrophils # Man Lymphocytes # (Manual) Monocytes # (Manual) Eosinophils # (Manual) Basophils # (Manual) PT INR Fibrinogen dRVVT Confirm Interp Factor V Activity POC ABG pH POC ABG pCO2 POC ABG pO2 ABG pO2 ABG HCO3 ABG Base Excess ABG Hemoglobin Oxyhemoglobin Sodium 133 L Potassium 3.2 L Chloride 93.2 L Carbon Dioxide 19 L BUN 36 H Creatinine 3.2 H Glucose 104 H POC Glucose 167 H 146 H Lactic Acid Calcium 6.4 L Phosphorus Magnesium 1.60 L Direct Bilirubin AST ALT Alkaline Phosphatase Lactate Dehydrogenase Troponin T C-Reactive Protein Total Protein Albumin Prealbumin Triglycerides Cholesterol LDL Cholesterol Direct HDL Cholesterol Urine pH Urine WBC (Auto) Urine Creatinine Urine Total Protein Fluid Total Protein Vancomycin Trough Rheumatoid Factor Complement C4 Miscellaneous Test Crossmatch 09/30/16 09/30/16 09/30/16 11:26 13:39 18:38 WBC RBC Hgb Hct MCV MCH MCHC RDW Plt Count Lymph % (Auto) [place] % (Auto) Lymph # [place] # Baso # Seg Neutrophils % Seg Neuts % (Manual) Lymphocytes % (Manual) Monocytes % (Manual) Eosinophils % (Manual) Basophils % (Manual) Nucleated RBC % Seg Neutrophils # Seg Neutrophils # Man Lymphocytes # (Manual) Monocytes # (Manual) Eosinophils # (Manual) Basophils # (Manual) PT INR Fibrinogen dRVVT Confirm Interp Factor V Activity POC ABG pH 7.479 H POC ABG pCO2 29.8 L POC ABG pO2 117 H ABG pO2 ABG HCO3 ABG Base Excess ABG Hemoglobin Oxyhemoglobin Sodium Potassium Chloride Carbon Dioxide BUN Creatinine Glucose POC Glucose 140 H 122 H Lactic Acid Calcium Phosphorus Magnesium Direct Bilirubin AST ALT Alkaline Phosphatase Lactate Dehydrogenase Troponin T C-Reactive Protein Total Protein Albumin Prealbumin Triglycerides Cholesterol LDL Cholesterol Direct HDL Cholesterol Urine pH Urine WBC (Auto) Urine Creatinine Urine Total Protein Fluid Total Protein Vancomycin Trough Rheumatoid Factor Complement C4 Miscellaneous Test Crossmatch 10/01/16 10/01/16 10/01/16 06:00 06:00 12:37 WBC 12.6 H RBC 2.75 L Hgb 7.3 L Hct 23.3 L MCV MCH 27 L MCHC RDW 20.6 H Plt Count 72 L Lymph % (Auto) [place] % (Auto) Lymph # [place] # Baso # Seg Neutrophils % Seg Neuts % (Manual) 31.0 L Lymphocytes % (Manual) 8.0 L Monocytes % (Manual) Eosinophils % (Manual) Basophils % (Manual) Nucleated RBC % 3.0 H Seg Neutrophils # Seg Neutrophils # Man Lymphocytes # (Manual) 1.0 L Monocytes # (Manual) Eosinophils # (Manual) Basophils # (Manual) PT INR Fibrinogen dRVVT Confirm Interp Factor V Activity POC ABG pH POC ABG pCO2 POC ABG pO2 ABG pO2 ABG HCO3 ABG Base Excess ABG Hemoglobin Oxyhemoglobin Sodium 127 L Potassium Chloride 86.8 L Carbon Dioxide 20 L BUN 42 H Creatinine 3.5 H Glucose POC Glucose 65 L Lactic Acid Calcium 7.0 L Phosphorus Magnesium Direct Bilirubin AST ALT Alkaline Phosphatase Lactate Dehydrogenase Troponin T C-Reactive Protein Total Protein Albumin Prealbumin Triglycerides Cholesterol LDL Cholesterol Direct HDL Cholesterol Urine pH Urine WBC (Auto) Urine Creatinine Urine Total Protein Fluid Total Protein Vancomycin Trough Rheumatoid Factor Complement C4 Miscellaneous Test Crossmatch 10/01/16 10/01/16 10/02/16 17:39 23:32 00:59 WBC RBC Hgb Hct MCV MCH MCHC RDW Plt Count Lymph % (Auto) [place] % (Auto) Lymph # [place] # Baso # Seg Neutrophils % Seg Neuts % (Manual) Lymphocytes % (Manual) Monocytes % (Manual) Eosinophils % (Manual) Basophils % (Manual) Nucleated RBC % Seg Neutrophils # Seg Neutrophils # Man Lymphocytes # (Manual) Monocytes # (Manual) Eosinophils # (Manual) Basophils # (Manual) PT INR Fibrinogen dRVVT Confirm Interp Factor V Activity POC ABG pH POC ABG pCO2 POC ABG pO2 ABG pO2 ABG HCO3 ABG Base Excess ABG Hemoglobin Oxyhemoglobin Sodium Potassium Chloride Carbon Dioxide BUN Creatinine Glucose POC Glucose 107 H 52 L 145 H Lactic Acid Calcium Phosphorus Magnesium Direct Bilirubin AST ALT Alkaline Phosphatase Lactate Dehydrogenase Troponin T C-Reactive Protein Total Protein Albumin Prealbumin Triglycerides Cholesterol LDL Cholesterol Direct HDL Cholesterol Urine pH Urine WBC (Auto) Urine Creatinine Urine Total Protein Fluid Total Protein Vancomycin Trough Rheumatoid Factor Complement C4 Miscellaneous Test Crossmatch 10/02/16 10/02/16 10/02/16 10:30 10:50 10:50 WBC 14.7 H RBC 2.76 L Hgb 7.4 L Hct 23.6 L MCV MCH 27 L MCHC RDW 20.2 H Plt Count 79 L Lymph % (Auto) [place] % (Auto) Lymph # [place] # Baso # Seg Neutrophils % Seg Neuts % (Manual) 86.0 H Lymphocytes % (Manual) 6.0 L Monocytes % (Manual) Eosinophils % (Manual) Basophils % (Manual) Nucleated RBC % Seg Neutrophils # Seg Neutrophils # Man 12.6 H Lymphocytes # (Manual) 0.9 L Monocytes # (Manual) Eosinophils # (Manual) Basophils # (Manual) PT INR Fibrinogen dRVVT Confirm Interp Factor V Activity POC ABG pH 7.486 H POC ABG pCO2 30.1 L POC ABG pO2 108 H ABG pO2 ABG HCO3 ABG Base Excess ABG Hemoglobin Oxyhemoglobin Sodium 131 L Potassium 3.4 L Chloride 89.9 L Carbon Dioxide BUN 26 H Creatinine 2.6 H Glucose POC Glucose Lactic Acid Calcium 7.0 L Phosphorus Magnesium Direct Bilirubin AST ALT Alkaline Phosphatase Lactate Dehydrogenase Troponin T C-Reactive Protein Total Protein Albumin Prealbumin Triglycerides Cholesterol LDL Cholesterol Direct HDL Cholesterol Urine pH Urine WBC (Auto) Urine Creatinine Urine Total Protein Fluid Total Protein Vancomycin Trough Rheumatoid Factor Complement C4 Miscellaneous Test Crossmatch 10/02/16 10/03/16 10/03/16 23:45 00:45 05:10 WBC 12.9 H RBC 2.77 L Hgb 7.6 L Hct 23.7 L MCV MCH 27 L MCHC RDW 19.7 H Plt Count 89 L Lymph % (Auto) [place] % (Auto) Lymph # [place] # Baso # Seg Neutrophils % Seg Neuts % (Manual) Lymphocytes % (Manual) 8.0 L Monocytes % (Manual) Eosinophils % (Manual) Basophils % (Manual) Nucleated RBC % Seg Neutrophils # 11.9 H Seg Neutrophils # Man Lymphocytes # (Manual) 1.0 L Monocytes # (Manual) Eosinophils # (Manual) Basophils # (Manual) PT INR Fibrinogen dRVVT Confirm Interp Factor V Activity POC ABG pH POC ABG pCO2 POC ABG pO2 ABG pO2 ABG HCO3 ABG Base Excess ABG Hemoglobin Oxyhemoglobin Sodium Potassium Chloride Carbon Dioxide BUN Creatinine Glucose POC Glucose 55 L 199 H Lactic Acid Calcium Phosphorus Magnesium Direct Bilirubin AST ALT Alkaline Phosphatase Lactate Dehydrogenase Troponin T C-Reactive Protein Total Protein Albumin Prealbumin Triglycerides Cholesterol LDL Cholesterol Direct HDL Cholesterol Urine pH Urine WBC (Auto) Urine Creatinine Urine Total Protein Fluid Total Protein Vancomycin Trough Rheumatoid Factor Complement C4 Miscellaneous Test Crossmatch 10/03/16 10/03/16 10/03/16 05:10 12:14 13:18 WBC RBC Hgb Hct MCV MCH MCHC RDW Plt Count Lymph % (Auto) [place] % (Auto) Lymph # [place] # Baso # Seg Neutrophils % Seg Neuts % (Manual) Lymphocytes % (Manual) Monocytes % (Manual) Eosinophils % (Manual) Basophils % (Manual) Nucleated RBC % Seg Neutrophils # Seg Neutrophils # Man Lymphocytes # (Manual) Monocytes # (Manual) Eosinophils # (Manual) Basophils # (Manual) PT INR Fibrinogen dRVVT Confirm Interp Factor V Activity POC ABG pH POC ABG pCO2 POC ABG pO2 ABG pO2 ABG HCO3 ABG Base Excess ABG Hemoglobin Oxyhemoglobin Sodium 129 L Potassium 3.3 L Chloride 88.8 L Carbon Dioxide 20 L BUN 29 H Creatinine 2.8 H Glucose POC Glucose 68 L 127 H Lactic Acid Calcium 7.2 L Phosphorus Magnesium Direct Bilirubin AST ALT Alkaline Phosphatase Lactate Dehydrogenase Troponin T C-Reactive Protein Total Protein Albumin Prealbumin Triglycerides Cholesterol LDL Cholesterol Direct HDL Cholesterol Urine pH Urine WBC (Auto) Urine Creatinine Urine Total Protein Fluid Total Protein Vancomycin Trough Rheumatoid Factor Complement C4 Miscellaneous Test Crossmatch 10/03/16 10/03/16 10/03/16 14:42 18:21 19:09 WBC RBC Hgb Hct MCV MCH MCHC RDW Plt Count Lymph % (Auto) [place] % (Auto) Lymph # [place] # Baso # Seg Neutrophils % Seg Neuts % (Manual) Lymphocytes % (Manual) Monocytes % (Manual) Eosinophils % (Manual) Basophils % (Manual) Nucleated RBC % Seg Neutrophils # Seg Neutrophils # Man Lymphocytes # (Manual) Monocytes # (Manual) Eosinophils # (Manual) Basophils # (Manual) PT INR Fibrinogen dRVVT Confirm Interp Factor V Activity POC ABG pH 7.499 H POC ABG pCO2 28.4 L POC ABG pO2 44 L ABG pO2 ABG HCO3 ABG Base Excess ABG Hemoglobin Oxyhemoglobin Sodium Potassium Chloride Carbon Dioxide BUN Creatinine Glucose POC Glucose 64 L 205 H Lactic Acid Calcium Phosphorus Magnesium Direct Bilirubin AST ALT Alkaline Phosphatase Lactate Dehydrogenase Troponin T C-Reactive Protein Total Protein Albumin Prealbumin Triglycerides Cholesterol LDL Cholesterol Direct HDL Cholesterol Urine pH Urine WBC (Auto) Urine Creatinine Urine Total Protein Fluid Total Protein Vancomycin Trough Rheumatoid Factor Complement C4 Miscellaneous Test Crossmatch 10/03/16 10/04/16 10/04/16 23:33 04:18 06:30 WBC RBC 2.54 L Hgb 7.1 L Hct 21.7 L MCV MCH MCHC RDW 19.5 H Plt Count 76 L Lymph % (Auto) [place] % (Auto) Lymph # [place] # Baso # Seg Neutrophils % Seg Neuts % (Manual) 88.0 H Lymphocytes % (Manual) 6.0 L Monocytes % (Manual) Eosinophils % (Manual) Basophils % (Manual) Nucleated RBC % Seg Neutrophils # Seg Neutrophils # Man 8.8 H Lymphocytes # (Manual) 0.6 L Monocytes # (Manual) Eosinophils # (Manual) Basophils # (Manual) PT INR Fibrinogen dRVVT Confirm Interp Factor V Activity POC ABG pH 7.461 H POC ABG pCO2 33.6 L POC ABG pO2 211 H ABG pO2 ABG HCO3 ABG Base Excess ABG Hemoglobin Oxyhemoglobin Sodium Potassium Chloride Carbon Dioxide BUN Creatinine Glucose POC Glucose 136 H Lactic Acid Calcium Phosphorus Magnesium Direct Bilirubin AST ALT Alkaline Phosphatase Lactate Dehydrogenase Troponin T C-Reactive Protein Total Protein Albumin Prealbumin Triglycerides Cholesterol LDL Cholesterol Direct HDL Cholesterol Urine pH Urine WBC (Auto) Urine Creatinine Urine Total Protein Fluid Total Protein Vancomycin Trough Rheumatoid Factor Complement C4 Miscellaneous Test Crossmatch 10/04/16 10/04/16 10/04/16 06:30 11:45 17:54 WBC RBC Hgb Hct MCV MCH MCHC RDW Plt Count Lymph % (Auto) [place] % (Auto) Lymph # [place] # Baso # Seg Neutrophils % Seg Neuts % (Manual) Lymphocytes % (Manual) Monocytes % (Manual) Eosinophils % (Manual) Basophils % (Manual) Nucleated RBC % Seg Neutrophils # Seg Neutrophils # Man Lymphocytes # (Manual) Monocytes # (Manual) Eosinophils # (Manual) Basophils # (Manual) PT INR Fibrinogen dRVVT Confirm Interp Factor V Activity POC ABG pH POC ABG pCO2 POC ABG pO2 ABG pO2 ABG HCO3 ABG Base Excess ABG Hemoglobin Oxyhemoglobin Sodium 128 L Potassium Chloride 87.4 L Carbon Dioxide 20 L BUN 34 H Creatinine 2.9 H Glucose 127 H POC Glucose 158 H 160 H Lactic Acid Calcium 7.4 L Phosphorus Magnesium Direct Bilirubin AST ALT Alkaline Phosphatase Lactate Dehydrogenase Troponin T C-Reactive Protein Total Protein Albumin Prealbumin Triglycerides Cholesterol LDL Cholesterol Direct HDL Cholesterol Urine pH Urine WBC (Auto) Urine Creatinine Urine Total Protein Fluid Total Protein Vancomycin Trough Rheumatoid Factor Complement C4 Miscellaneous Test Crossmatch 10/04/16 10/05/16 10/05/16 23:25 04:30 05:00 WBC RBC 2.64 L Hgb 7.5 L Hct 22.6 L MCV MCH MCHC RDW 19.3 H Plt Count 80 L Lymph % (Auto) [place] % (Auto) Lymph # [place] # Baso # Seg Neutrophils % Seg Neuts % (Manual) Lymphocytes % (Manual) 12.0 L Monocytes % (Manual) Eosinophils % (Manual) Basophils % (Manual) Nucleated RBC % Seg Neutrophils # Seg Neutrophils # Man Lymphocytes # (Manual) Monocytes # (Manual) Eosinophils # (Manual) Basophils # (Manual) PT INR Fibrinogen dRVVT Confirm Interp Factor V Activity POC ABG pH 7.475 H POC ABG pCO2 33.3 L POC ABG pO2 140 H ABG pO2 ABG HCO3 ABG Base Excess ABG Hemoglobin Oxyhemoglobin Sodium Potassium Chloride Carbon Dioxide BUN Creatinine Glucose POC Glucose 141 H Lactic Acid Calcium Phosphorus Magnesium Direct Bilirubin AST ALT Alkaline Phosphatase Lactate Dehydrogenase Troponin T C-Reactive Protein Total Protein Albumin Prealbumin Triglycerides Cholesterol LDL Cholesterol Direct HDL Cholesterol Urine pH Urine WBC (Auto) Urine Creatinine Urine Total Protein Fluid Total Protein Vancomycin Trough Rheumatoid Factor Complement C4 Miscellaneous Test Crossmatch 10/05/16 10/05/16 10/05/16 05:00 05:09 12:58 WBC RBC Hgb Hct MCV MCH MCHC RDW Plt Count Lymph % (Auto) [place] % (Auto) Lymph # [place] # Baso # Seg Neutrophils % Seg Neuts % (Manual) Lymphocytes % (Manual) Monocytes % (Manual) Eosinophils % (Manual) Basophils % (Manual) Nucleated RBC % Seg Neutrophils # Seg Neutrophils # Man Lymphocytes # (Manual) Monocytes # (Manual) Eosinophils # (Manual) Basophils # (Manual) PT INR Fibrinogen dRVVT Confirm Interp Factor V Activity POC ABG pH POC ABG pCO2 POC ABG pO2 ABG pO2 ABG HCO3 ABG Base Excess ABG Hemoglobin Oxyhemoglobin Sodium 131 L Potassium Chloride 94.0 L Carbon Dioxide 20 L BUN 22 H Creatinine 2.0 H Glucose 123 H POC Glucose 166 H 179 H Lactic Acid Calcium 7.7 L Phosphorus 2.20 L D Magnesium Direct Bilirubin AST ALT Alkaline Phosphatase Lactate Dehydrogenase Troponin T C-Reactive Protein Total Protein Albumin Prealbumin Triglycerides Cholesterol LDL Cholesterol Direct HDL Cholesterol Urine pH Urine WBC (Auto) Urine Creatinine Urine Total Protein Fluid Total Protein Vancomycin Trough Rheumatoid Factor Complement C4 Miscellaneous Test Crossmatch 10/05/16 10/05/16 10/05/16 15:50 18:53 23:12 WBC RBC Hgb Hct MCV MCH MCHC RDW Plt Count Lymph % (Auto) [place] % (Auto) Lymph # [place] # Baso # Seg Neutrophils % Seg Neuts % (Manual) Lymphocytes % (Manual) Monocytes % (Manual) Eosinophils % (Manual) Basophils % (Manual) Nucleated RBC % Seg Neutrophils # Seg Neutrophils # Man Lymphocytes # (Manual) Monocytes # (Manual) Eosinophils # (Manual) Basophils # (Manual) PT INR Fibrinogen dRVVT Confirm Interp Factor V Activity POC ABG pH POC ABG pCO2 POC ABG pO2 ABG pO2 ABG HCO3 ABG Base Excess ABG Hemoglobin Oxyhemoglobin Sodium Potassium Chloride Carbon Dioxide BUN Creatinine Glucose POC Glucose 150 H 164 H Lactic Acid Calcium Phosphorus Magnesium Direct Bilirubin AST ALT Alkaline Phosphatase Lactate Dehydrogenase Troponin T C-Reactive Protein Total Protein Albumin Prealbumin Triglycerides Cholesterol LDL Cholesterol Direct HDL Cholesterol Urine pH Urine WBC (Auto) Urine Creatinine Urine Total Protein Fluid Total Protein Vancomycin Trough Rheumatoid Factor Complement C4 Miscellaneous Test Crossmatch See Detail 10/06/16 10/06/16 10/06/16 03:50 03:50 04:53 WBC RBC 3.00 L Hgb 8.6 L Hct 25.8 L MCV MCH MCHC RDW 17.9 H Plt Count 65 L Lymph % (Auto) [place] % (Auto) Lymph # [place] # Baso # Seg Neutrophils % Seg Neuts % (Manual) 30.0 L Lymphocytes % (Manual) 5.0 L Monocytes % (Manual) Eosinophils % (Manual) Basophils % (Manual) Nucleated RBC % Seg Neutrophils # Seg Neutrophils # Man Lymphocytes # (Manual) 0.4 L Monocytes # (Manual) Eosinophils # (Manual) Basophils # (Manual) PT INR Fibrinogen dRVVT Confirm Interp Factor V Activity POC ABG pH 7.310 L POC ABG pCO2 49.0 H POC ABG pO2 ABG pO2 ABG HCO3 ABG Base Excess ABG Hemoglobin Oxyhemoglobin Sodium 133 L Potassium Chloride 95.9 L Carbon Dioxide BUN 26 H Creatinine 2.0 H Glucose 116 H POC Glucose Lactic Acid Calcium 7.8 L Phosphorus Magnesium Direct Bilirubin AST ALT Alkaline Phosphatase Lactate Dehydrogenase Troponin T C-Reactive Protein Total Protein Albumin Prealbumin Triglycerides Cholesterol LDL Cholesterol Direct HDL Cholesterol Urine pH Urine WBC (Auto) Urine Creatinine Urine Total Protein Fluid Total Protein Vancomycin Trough Rheumatoid Factor Complement C4 Miscellaneous Test Crossmatch 10/06/16 10/06/16 10/06/16 05:23 11:52 18:34 WBC RBC Hgb Hct MCV MCH MCHC RDW Plt Count Lymph % (Auto) [place] % (Auto) Lymph # [place] # Baso # Seg Neutrophils % Seg Neuts % (Manual) Lymphocytes % (Manual) Monocytes % (Manual) Eosinophils % (Manual) Basophils % (Manual) Nucleated RBC % Seg Neutrophils # Seg Neutrophils # Man Lymphocytes # (Manual) Monocytes # (Manual) Eosinophils # (Manual) Basophils # (Manual) PT INR Fibrinogen dRVVT Confirm Interp Factor V Activity POC ABG pH POC ABG pCO2 POC ABG pO2 ABG pO2 ABG HCO3 ABG Base Excess ABG Hemoglobin Oxyhemoglobin Sodium Potassium Chloride Carbon Dioxide BUN Creatinine Glucose POC Glucose 126 H 116 H 129 H Lactic Acid Calcium Phosphorus Magnesium Direct Bilirubin AST ALT Alkaline Phosphatase Lactate Dehydrogenase Troponin T C-Reactive Protein Total Protein Albumin Prealbumin Triglycerides Cholesterol LDL Cholesterol Direct HDL Cholesterol Urine pH Urine WBC (Auto) Urine Creatinine Urine Total Protein Fluid Total Protein Vancomycin Trough Rheumatoid Factor Complement C4 Miscellaneous Test Crossmatch 10/07/16 10/07/16 10/07/16 03:45 05:00 10:00 WBC 17.0 H RBC 2.68 L Hgb 7.3 L Hct 25.3 L MCV MCH 27 L MCHC 29 L RDW 19.6 H Plt Count 74 L Lymph % (Auto) [place] % (Auto) Lymph # [place] # Baso # Seg Neutrophils % Seg Neuts % (Manual) Lymphocytes % (Manual) 12.0 L Monocytes % (Manual) Eosinophils % (Manual) Basophils % (Manual) Nucleated RBC % 4.0 H Seg Neutrophils # Seg Neutrophils # Man 10.7 H Lymphocytes # (Manual) Monocytes # (Manual) Eosinophils # (Manual) Basophils # (Manual) PT INR Fibrinogen dRVVT Confirm Interp Factor V Activity POC ABG pH POC ABG pCO2 POC ABG pO2 ABG pO2 ABG HCO3 ABG Base Excess ABG Hemoglobin Oxyhemoglobin Sodium 130 L Potassium 3.2 L Chloride 93.9 L Carbon Dioxide 20 L BUN 44 H Creatinine 2.7 H Glucose 129 H POC Glucose Lactic Acid Calcium 7.4 L Phosphorus Magnesium Direct Bilirubin AST ALT 6 L Alkaline Phosphatase 195 H Lactate Dehydrogenase Troponin T C-Reactive Protein Total Protein 4.9 L Albumin 1.0 L Prealbumin Triglycerides Cholesterol LDL Cholesterol Direct HDL Cholesterol Urine pH Urine WBC (Auto) Urine Creatinine Urine Total Protein Fluid Total Protein Vancomycin Trough Rheumatoid Factor Complement C4 Miscellaneous Test Flexitest 1 H Crossmatch 10/07/16 10/07/16 10/07/16 10:00 11:24 18:10 WBC RBC Hgb Hct MCV MCH MCHC RDW Plt Count Lymph % (Auto) [place] % (Auto) Lymph # [place] # Baso # Seg Neutrophils % Seg Neuts % (Manual) Lymphocytes % (Manual) Monocytes % (Manual) Eosinophils % (Manual) Basophils % (Manual) Nucleated RBC % Seg Neutrophils # Seg Neutrophils # Man Lymphocytes # (Manual) Monocytes # (Manual) Eosinophils # (Manual) Basophils # (Manual) PT INR Fibrinogen dRVVT Confirm Interp Factor V Activity POC ABG pH POC ABG pCO2 POC ABG pO2 ABG pO2 ABG HCO3 ABG Base Excess ABG Hemoglobin Oxyhemoglobin Sodium Potassium Chloride Carbon Dioxide BUN Creatinine Glucose POC Glucose 116 H 130 H Lactic Acid Calcium Phosphorus Magnesium Direct Bilirubin AST ALT Alkaline Phosphatase Lactate Dehydrogenase Troponin T C-Reactive Protein 19.40 H Total Protein Albumin Prealbumin Triglycerides Cholesterol LDL Cholesterol Direct HDL Cholesterol Urine pH Urine WBC (Auto) Urine Creatinine Urine Total Protein Fluid Total Protein Vancomycin Trough Rheumatoid Factor Complement C4 Miscellaneous Test Crossmatch 10/07/16 10/08/16 10/08/16 18:30 00:00 04:00 WBC RBC Hgb Hct MCV MCH MCHC RDW Plt Count Lymph % (Auto) [place] % (Auto) Lymph # [place] # Baso # Seg Neutrophils % Seg Neuts % (Manual) Lymphocytes % (Manual) Monocytes % (Manual) Eosinophils % (Manual) Basophils % (Manual) Nucleated RBC % Seg Neutrophils # Seg Neutrophils # Man Lymphocytes # (Manual) Monocytes # (Manual) Eosinophils # (Manual) Basophils # (Manual) PT INR Fibrinogen dRVVT Confirm Interp Factor V Activity POC ABG pH POC ABG pCO2 POC ABG pO2 ABG pO2 ABG HCO3 ABG Base Excess ABG Hemoglobin Oxyhemoglobin Sodium 132 L Potassium 3.3 L Chloride 93.6 L Carbon Dioxide 17 L BUN 59 H Creatinine 2.7 H Glucose 121 H POC Glucose 122 H Lactic Acid Calcium 7.6 L Phosphorus Magnesium Direct Bilirubin AST ALT Alkaline Phosphatase Lactate Dehydrogenase Troponin T C-Reactive Protein Total Protein Albumin Prealbumin Triglycerides Cholesterol LDL Cholesterol Direct HDL Cholesterol Urine pH Urine WBC (Auto) > 182.0 H Urine Creatinine Urine Total Protein Fluid Total Protein Vancomycin Trough Rheumatoid Factor Complement C4 Miscellaneous Test Crossmatch 10/08/16 10/08/16 10/08/16 04:30 05:30 11:51 WBC RBC 5.15 H Hgb 14.4 H D Hct 44.5 H D MCV MCH MCHC RDW 19.5 H Plt Count 56 L Lymph % (Auto) [place] % (Auto) Lymph # [place] # Baso # Seg Neutrophils % Seg Neuts % (Manual) 24.0 L Lymphocytes % (Manual) 8.0 L Monocytes % (Manual) Eosinophils % (Manual) Basophils % (Manual) Nucleated RBC % 9.0 H Seg Neutrophils # Seg Neutrophils # Man Lymphocytes # (Manual) 0.7 L Monocytes # (Manual) Eosinophils # (Manual) Basophils # (Manual) PT INR Fibrinogen dRVVT Confirm Interp Factor V Activity POC ABG pH POC ABG pCO2 POC ABG pO2 ABG pO2 ABG HCO3 ABG Base Excess ABG Hemoglobin Oxyhemoglobin Sodium Potassium Chloride Carbon Dioxide BUN Creatinine Glucose POC Glucose 125 H 150 H Lactic Acid Calcium Phosphorus Magnesium Direct Bilirubin AST ALT Alkaline Phosphatase Lactate Dehydrogenase Troponin T C-Reactive Protein Total Protein Albumin Prealbumin Triglycerides Cholesterol LDL Cholesterol Direct HDL Cholesterol Urine pH Urine WBC (Auto) Urine Creatinine Urine Total Protein Fluid Total Protein Vancomycin Trough Rheumatoid Factor Complement C4 Miscellaneous Test Crossmatch 10/08/16 10/08/16 10/08/16 12:49 17:07 19:30 WBC RBC Hgb 7.1 L D Hct 22.4 L D MCV MCH MCHC RDW Plt Count Lymph % (Auto) [place] % (Auto) Lymph # [place] # Baso # Seg Neutrophils % Seg Neuts % (Manual) Lymphocytes % (Manual) Monocytes % (Manual) Eosinophils % (Manual) Basophils % (Manual) Nucleated RBC % Seg Neutrophils # Seg Neutrophils # Man Lymphocytes # (Manual) Monocytes # (Manual) Eosinophils # (Manual) Basophils # (Manual) PT INR Fibrinogen dRVVT Confirm Interp Factor V Activity POC ABG pH POC ABG pCO2 28.2 L POC ABG pO2 111 H ABG pO2 ABG HCO3 ABG Base Excess ABG Hemoglobin Oxyhemoglobin Sodium Potassium Chloride Carbon Dioxide BUN Creatinine Glucose POC Glucose 145 H Lactic Acid Calcium Phosphorus Magnesium Direct Bilirubin AST ALT Alkaline Phosphatase Lactate Dehydrogenase Troponin T C-Reactive Protein Total Protein Albumin Prealbumin Triglycerides Cholesterol LDL Cholesterol Direct HDL Cholesterol Urine pH Urine WBC (Auto) Urine Creatinine Urine Total Protein Fluid Total Protein Vancomycin Trough Rheumatoid Factor Complement C4 Miscellaneous Test Crossmatch 10/08/16 10/09/16 10/09/16 19:30 03:45 03:45 WBC 12.6 H RBC 2.36 L Hgb 6.7 L Hct 21.1 L MCV MCH MCHC RDW 19.5 H Plt Count 75 L Lymph % (Auto) [place] % (Auto) Lymph # [place] # Baso # Seg Neutrophils % Seg Neuts % (Manual) Lymphocytes % (Manual) Monocytes % (Manual) 10.0 H Eosinophils % (Manual) Basophils % (Manual) Nucleated RBC % 3.0 H Seg Neutrophils # Seg Neutrophils # Man Lymphocytes # (Manual) Monocytes # (Manual) 1.3 H Eosinophils # (Manual) Basophils # (Manual) PT 18.0 H INR 1.41 H Fibrinogen dRVVT Confirm Interp Factor V Activity POC ABG pH POC ABG pCO2 POC ABG pO2 ABG pO2 ABG HCO3 ABG Base Excess ABG Hemoglobin Oxyhemoglobin Sodium 135 L Potassium Chloride Carbon Dioxide 17 L BUN 81 H Creatinine 3.2 H Glucose 109 H POC Glucose Lactic Acid Calcium 7.4 L Phosphorus 4.60 H D Magnesium Direct Bilirubin AST ALT Alkaline Phosphatase Lactate Dehydrogenase Troponin T C-Reactive Protein Total Protein Albumin Prealbumin Triglycerides Cholesterol LDL Cholesterol Direct HDL Cholesterol Urine pH Urine WBC (Auto) Urine Creatinine Urine Total Protein Fluid Total Protein Vancomycin Trough Rheumatoid Factor Complement C4 Miscellaneous Test Crossmatch 10/09/16 10/09/16 10/09/16 03:45 05:14 07:20 WBC RBC Hgb Hct MCV MCH MCHC RDW Plt Count Lymph % (Auto) [place] % (Auto) Lymph # [place] # Baso # Seg Neutrophils % Seg Neuts % (Manual) Lymphocytes % (Manual) Monocytes % (Manual) Eosinophils % (Manual) Basophils % (Manual) Nucleated RBC % Seg Neutrophils # Seg Neutrophils # Man Lymphocytes # (Manual) Monocytes # (Manual) Eosinophils # (Manual) Basophils # (Manual) PT 19.0 H INR 1.51 H Fibrinogen dRVVT Confirm Interp Factor V Activity POC ABG pH POC ABG pCO2 POC ABG pO2 ABG pO2 ABG HCO3 ABG Base Excess ABG Hemoglobin Oxyhemoglobin Sodium Potassium Chloride Carbon Dioxide BUN Creatinine Glucose POC Glucose 151 H Lactic Acid Calcium Phosphorus Magnesium Direct Bilirubin AST ALT Alkaline Phosphatase Lactate Dehydrogenase Troponin T C-Reactive Protein Total Protein Albumin Prealbumin Triglycerides Cholesterol LDL Cholesterol Direct HDL Cholesterol Urine pH Urine WBC (Auto) Urine Creatinine Urine Total Protein Fluid Total Protein Vancomycin Trough Rheumatoid Factor Complement C4 Miscellaneous Test Crossmatch See Detail 10/09/16 10/09/16 10/09/16 11:46 16:20 16:43 WBC RBC Hgb 7.2 L Hct 22.2 L MCV MCH MCHC RDW Plt Count Lymph % (Auto) [place] % (Auto) Lymph # [place] # Baso # Seg Neutrophils % Seg Neuts % (Manual) Lymphocytes % (Manual) Monocytes % (Manual) Eosinophils % (Manual) Basophils % (Manual) Nucleated RBC % Seg Neutrophils # Seg Neutrophils # Man Lymphocytes # (Manual) Monocytes # (Manual) Eosinophils # (Manual) Basophils # (Manual) PT INR Fibrinogen dRVVT Confirm Interp Factor V Activity POC ABG pH POC ABG pCO2 POC ABG pO2 ABG pO2 ABG HCO3 ABG Base Excess ABG Hemoglobin Oxyhemoglobin Sodium Potassium Chloride Carbon Dioxide BUN Creatinine Glucose POC Glucose 133 H 141 H Lactic Acid Calcium Phosphorus Magnesium Direct Bilirubin AST ALT Alkaline Phosphatase Lactate Dehydrogenase Troponin T C-Reactive Protein Total Protein Albumin Prealbumin Triglycerides Cholesterol LDL Cholesterol Direct HDL Cholesterol Urine pH Urine WBC (Auto) Urine Creatinine Urine Total Protein Fluid Total Protein Vancomycin Trough Rheumatoid Factor Complement C4 Miscellaneous Test Crossmatch 10/10/16 10/10/16 10/10/16 05:00 05:00 11:19 WBC 18.5 H RBC 2.19 L Hgb 6.4 L Hct 19.6 L* MCV MCH MCHC RDW 19.3 H Plt Count 93 L Lymph % (Auto) [place] % (Auto) Lymph # [place] # Baso # Seg Neutrophils % Seg Neuts % (Manual) Lymphocytes % (Manual) 10.0 L Monocytes % (Manual) Eosinophils % (Manual) Basophils % (Manual) Nucleated RBC % 4.0 H Seg Neutrophils # Seg Neutrophils # Man 11.3 H Lymphocytes # (Manual) Monocytes # (Manual) Eosinophils # (Manual) Basophils # (Manual) PT INR Fibrinogen dRVVT Confirm Interp Factor V Activity POC ABG pH POC ABG pCO2 POC ABG pO2 ABG pO2 ABG HCO3 ABG Base Excess ABG Hemoglobin Oxyhemoglobin Sodium Potassium 5.7 H D Chloride Carbon Dioxide 16 L BUN 94 H Creatinine 3.1 H Glucose 131 H POC Glucose 153 H Lactic Acid Calcium 8.2 L Phosphorus 5.10 H Magnesium 2.40 H Direct Bilirubin 0.3 H AST ALT < 5 L Alkaline Phosphatase 319 H Lactate Dehydrogenase Troponin T C-Reactive Protein Total Protein 5.1 L Albumin 1.0 L Prealbumin Triglycerides Cholesterol LDL Cholesterol Direct HDL Cholesterol Urine pH Urine WBC (Auto) Urine Creatinine Urine Total Protein Fluid Total Protein Vancomycin Trough Rheumatoid Factor Complement C4 Miscellaneous Test Crossmatch 10/10/16 10/10/16 10/11/16 17:50 23:30 04:15 WBC RBC Hgb Hct MCV MCH MCHC RDW Plt Count Lymph % (Auto) [place] % (Auto) Lymph # [place] # Baso # Seg Neutrophils % Seg Neuts % (Manual) Lymphocytes % (Manual) Monocytes % (Manual) Eosinophils % (Manual) Basophils % (Manual) Nucleated RBC % Seg Neutrophils # Seg Neutrophils # Man Lymphocytes # (Manual) Monocytes # (Manual) Eosinophils # (Manual) Basophils # (Manual) PT INR Fibrinogen dRVVT Confirm Interp Factor V Activity POC ABG pH POC ABG pCO2 POC ABG pO2 ABG pO2 ABG HCO3 ABG Base Excess ABG Hemoglobin Oxyhemoglobin Sodium Potassium Chloride 96.4 L Carbon Dioxide 21 L BUN 57 H Creatinine 2.1 H Glucose 151 H POC Glucose 146 H 141 H Lactic Acid Calcium 8.3 L Phosphorus Magnesium Direct Bilirubin AST ALT Alkaline Phosphatase Lactate Dehydrogenase Troponin T C-Reactive Protein Total Protein Albumin Prealbumin Triglycerides Cholesterol LDL Cholesterol Direct HDL Cholesterol Urine pH Urine WBC (Auto) Urine Creatinine Urine Total Protein Fluid Total Protein Vancomycin Trough Rheumatoid Factor Complement C4 Miscellaneous Test Crossmatch 10/11/16 10/11/16 10/11/16 04:15 04:15 05:30 WBC 28.3 H RBC 3.12 L Hgb 9.3 L Hct 28.7 L D MCV MCH MCHC RDW 17.7 H Plt Count 128 L Lymph % (Auto) [place] % (Auto) Lymph # [place] # Baso # Seg Neutrophils % Seg Neuts % (Manual) Lymphocytes % (Manual) Monocytes % (Manual) Eosinophils % (Manual) Basophils % (Manual) Nucleated RBC % Seg Neutrophils # Seg Neutrophils # Man Lymphocytes # (Manual) Monocytes # (Manual) Eosinophils # (Manual) Basophils # (Manual) PT INR Fibrinogen dRVVT Confirm Interp Factor V Activity POC ABG pH POC ABG pCO2 POC ABG pO2 ABG pO2 ABG HCO3 ABG Base Excess ABG Hemoglobin Oxyhemoglobin Sodium Potassium Chloride Carbon Dioxide BUN Creatinine Glucose POC Glucose 167 H Lactic Acid Calcium Phosphorus Magnesium Direct Bilirubin AST ALT Alkaline Phosphatase Lactate Dehydrogenase Troponin T C-Reactive Protein 15.80 H Total Protein Albumin Prealbumin Triglycerides Cholesterol LDL Cholesterol Direct HDL Cholesterol Urine pH Urine WBC (Auto) Urine Creatinine Urine Total Protein Fluid Total Protein Vancomycin Trough Rheumatoid Factor Complement C4 Miscellaneous Test Crossmatch 10/11/16 10/11/16 10/11/16 11:40 15:49 23:57 WBC RBC Hgb Hct MCV MCH MCHC RDW Plt Count Lymph % (Auto) [place] % (Auto) Lymph # [place] # Baso # Seg Neutrophils % Seg Neuts % (Manual) Lymphocytes % (Manual) Monocytes % (Manual) Eosinophils % (Manual) Basophils % (Manual) Nucleated RBC % Seg Neutrophils # Seg Neutrophils # Man Lymphocytes # (Manual) Monocytes # (Manual) Eosinophils # (Manual) Basophils # (Manual) PT INR Fibrinogen dRVVT Confirm Interp Factor V Activity POC ABG pH POC ABG pCO2 POC ABG pO2 ABG pO2 ABG HCO3 ABG Base Excess ABG Hemoglobin Oxyhemoglobin Sodium Potassium Chloride Carbon Dioxide BUN Creatinine Glucose POC Glucose 139 H 168 H 161 H Lactic Acid Calcium Phosphorus Magnesium Direct Bilirubin AST ALT Alkaline Phosphatase Lactate Dehydrogenase Troponin T C-Reactive Protein Total Protein Albumin Prealbumin Triglycerides Cholesterol LDL Cholesterol Direct HDL Cholesterol Urine pH Urine WBC (Auto) Urine Creatinine Urine Total Protein Fluid Total Protein Vancomycin Trough Rheumatoid Factor Complement C4 Miscellaneous Test Crossmatch 10/12/16 10/12/16 10/12/16 04:40 04:40 05:44 WBC 22.5 H RBC 2.88 L Hgb 8.8 L Hct 26.8 L MCV MCH MCHC RDW 17.8 H Plt Count Lymph % (Auto) [place] % (Auto) Lymph # [place] # Baso # Seg Neutrophils % Seg Neuts % (Manual) Lymphocytes % (Manual) Monocytes % (Manual) Eosinophils % (Manual) Basophils % (Manual) Nucleated RBC % Seg Neutrophils # Seg Neutrophils # Man Lymphocytes # (Manual) Monocytes # (Manual) Eosinophils # (Manual) Basophils # (Manual) PT INR Fibrinogen dRVVT Confirm Interp Factor V Activity POC ABG pH POC ABG pCO2 POC ABG pO2 ABG pO2 ABG HCO3 ABG Base Excess ABG Hemoglobin Oxyhemoglobin Sodium 134 L Potassium Chloride 93.0 L Carbon Dioxide BUN 74 H Creatinine 2.5 H Glucose 137 H POC Glucose 158 H Lactic Acid Calcium 8.2 L Phosphorus Magnesium Direct Bilirubin AST ALT Alkaline Phosphatase Lactate Dehydrogenase Troponin T C-Reactive Protein Total Protein Albumin Prealbumin Triglycerides Cholesterol LDL Cholesterol Direct HDL Cholesterol Urine pH Urine WBC (Auto) Urine Creatinine Urine Total Protein Fluid Total Protein Vancomycin Trough Rheumatoid Factor Complement C4 Miscellaneous Test Crossmatch 10/12/16 10/12/16 10/12/16 12:27 18:18 23:46 WBC RBC Hgb Hct MCV MCH MCHC RDW Plt Count Lymph % (Auto) [place] % (Auto) Lymph # [place] # Baso # Seg Neutrophils % Seg Neuts % (Manual) Lymphocytes % (Manual) Monocytes % (Manual) Eosinophils % (Manual) Basophils % (Manual) Nucleated RBC % Seg Neutrophils # Seg Neutrophils # Man Lymphocytes # (Manual) Monocytes # (Manual) Eosinophils # (Manual) Basophils # (Manual) PT INR Fibrinogen dRVVT Confirm Interp Factor V Activity POC ABG pH POC ABG pCO2 POC ABG pO2 ABG pO2 ABG HCO3 ABG Base Excess ABG Hemoglobin Oxyhemoglobin Sodium Potassium Chloride Carbon Dioxide BUN Creatinine Glucose POC Glucose 153 H 140 H 150 H Lactic Acid Calcium Phosphorus Magnesium Direct Bilirubin AST ALT Alkaline Phosphatase Lactate Dehydrogenase Troponin T C-Reactive Protein Total Protein Albumin Prealbumin Triglycerides Cholesterol LDL Cholesterol Direct HDL Cholesterol Urine pH Urine WBC (Auto) Urine Creatinine Urine Total Protein Fluid Total Protein Vancomycin Trough Rheumatoid Factor Complement C4 Miscellaneous Test Crossmatch 10/13/16 10/13/16 10/13/16 06:22 09:20 12:29 WBC RBC Hgb Hct MCV MCH MCHC RDW Plt Count Lymph % (Auto) [place] % (Auto) Lymph # [place] # Baso # Seg Neutrophils % Seg Neuts % (Manual) Lymphocytes % (Manual) Monocytes % (Manual) Eosinophils % (Manual) Basophils % (Manual) Nucleated RBC % Seg Neutrophils # Seg Neutrophils # Man Lymphocytes # (Manual) Monocytes # (Manual) Eosinophils # (Manual) Basophils # (Manual) PT INR Fibrinogen dRVVT Confirm Interp Factor V Activity POC ABG pH POC ABG pCO2 POC ABG pO2 ABG pO2 ABG HCO3 ABG Base Excess ABG Hemoglobin Oxyhemoglobin Sodium Potassium Chloride Carbon Dioxide BUN Creatinine Glucose POC Glucose 165 H 193 H Lactic Acid Calcium Phosphorus Magnesium Direct Bilirubin AST ALT Alkaline Phosphatase Lactate Dehydrogenase Troponin T C-Reactive Protein Total Protein Albumin Prealbumin Triglycerides Cholesterol LDL Cholesterol Direct HDL Cholesterol Urine pH Urine WBC (Auto) Urine Creatinine Urine Total Protein Fluid Total Protein Vancomycin Trough Rheumatoid Factor Complement C4 Miscellaneous Test Flexitest 1 H Crossmatch 10/13/16 10/13/16 10/13/16 18:09 Unknown Unknown WBC 23.4 H RBC 2.83 L Hgb 8.7 L Hct 26.1 L MCV MCH MCHC RDW 18.1 H Plt Count Lymph % (Auto) [place] % (Auto) Lymph # [place] # Baso # Seg Neutrophils % Seg Neuts % (Manual) Lymphocytes % (Manual) Monocytes % (Manual) Eosinophils % (Manual) Basophils % (Manual) Nucleated RBC % Seg Neutrophils # Seg Neutrophils # Man Lymphocytes # (Manual) Monocytes # (Manual) Eosinophils # (Manual) Basophils # (Manual) PT INR Fibrinogen dRVVT Confirm Interp Factor V Activity POC ABG pH POC ABG pCO2 POC ABG pO2 ABG pO2 ABG HCO3 ABG Base Excess ABG Hemoglobin Oxyhemoglobin Sodium Potassium Chloride 95.8 L Carbon Dioxide BUN 82 H Creatinine 2.6 H Glucose 152 H POC Glucose 166 H Lactic Acid Calcium Phosphorus Magnesium Direct Bilirubin AST ALT Alkaline Phosphatase Lactate Dehydrogenase Troponin T C-Reactive Protein Total Protein Albumin Prealbumin Triglycerides Cholesterol LDL Cholesterol Direct HDL Cholesterol Urine pH Urine WBC (Auto) Urine Creatinine Urine Total Protein Fluid Total Protein Vancomycin Trough Rheumatoid Factor Complement C4 Miscellaneous Test Crossmatch 10/14/16 10/14/16 10/14/16 05:38 06:35 08:10 WBC 20.7 H RBC 2.81 L Hgb 8.4 L Hct 27.2 L MCV MCH MCHC RDW 19.4 H Plt Count Lymph % (Auto) [place] % (Auto) Lymph # [place] # Baso # Seg Neutrophils % Seg Neuts % (Manual) Lymphocytes % (Manual) Monocytes % (Manual) Eosinophils % (Manual) Basophils % (Manual) Nucleated RBC % Seg Neutrophils # Seg Neutrophils # Man Lymphocytes # (Manual) Monocytes # (Manual) Eosinophils # (Manual) Basophils # (Manual) PT INR Fibrinogen dRVVT Confirm Interp Factor V Activity POC ABG pH POC ABG pCO2 POC ABG pO2 ABG pO2 ABG HCO3 ABG Base Excess ABG Hemoglobin Oxyhemoglobin Sodium Potassium Chloride Carbon Dioxide BUN 58 H Creatinine 1.9 H Glucose 169 H POC Glucose 195 H Lactic Acid Calcium Phosphorus Magnesium Direct Bilirubin AST ALT Alkaline Phosphatase Lactate Dehydrogenase Troponin T C-Reactive Protein Total Protein Albumin Prealbumin Triglycerides Cholesterol LDL Cholesterol Direct HDL Cholesterol Urine pH Urine WBC (Auto) Urine Creatinine Urine Total Protein Fluid Total Protein Vancomycin Trough Rheumatoid Factor Complement C4 Miscellaneous Test Crossmatch 10/14/16 10/14/16 10/14/16 11:44 17:13 23:28 WBC RBC Hgb Hct MCV MCH MCHC RDW Plt Count Lymph % (Auto) [place] % (Auto) Lymph # [place] # Baso # Seg Neutrophils % Seg Neuts % (Manual) Lymphocytes % (Manual) Monocytes % (Manual) Eosinophils % (Manual) Basophils % (Manual) Nucleated RBC % Seg Neutrophils # Seg Neutrophils # Man Lymphocytes # (Manual) Monocytes # (Manual) Eosinophils # (Manual) Basophils # (Manual) PT INR Fibrinogen dRVVT Confirm Interp Factor V Activity POC ABG pH POC ABG pCO2 POC ABG pO2 ABG pO2 ABG HCO3 ABG Base Excess ABG Hemoglobin Oxyhemoglobin Sodium Potassium Chloride Carbon Dioxide BUN Creatinine Glucose POC Glucose 174 H 121 H 151 H Lactic Acid Calcium Phosphorus Magnesium Direct Bilirubin AST ALT Alkaline Phosphatase Lactate Dehydrogenase Troponin T C-Reactive Protein Total Protein Albumin Prealbumin Triglycerides Cholesterol LDL Cholesterol Direct HDL Cholesterol Urine pH Urine WBC (Auto) Urine Creatinine Urine Total Protein Fluid Total Protein Vancomycin Trough Rheumatoid Factor Complement C4 Miscellaneous Test Crossmatch 10/15/16 10/15/16 10/15/16 05:06 12:26 17:48 WBC RBC Hgb Hct MCV MCH MCHC RDW Plt Count Lymph % (Auto) [place] % (Auto) Lymph # [place] # Baso # Seg Neutrophils % Seg Neuts % (Manual) Lymphocytes % (Manual) Monocytes % (Manual) Eosinophils % (Manual) Basophils % (Manual) Nucleated RBC % Seg Neutrophils # Seg Neutrophils # Man Lymphocytes # (Manual) Monocytes # (Manual) Eosinophils # (Manual) Basophils # (Manual) PT INR Fibrinogen dRVVT Confirm Interp Factor V Activity POC ABG pH POC ABG pCO2 POC ABG pO2 ABG pO2 ABG HCO3 ABG Base Excess ABG Hemoglobin Oxyhemoglobin Sodium Potassium Chloride Carbon Dioxide BUN Creatinine Glucose POC Glucose 151 H 149 H 153 H Lactic Acid Calcium Phosphorus Magnesium Direct Bilirubin AST ALT Alkaline Phosphatase Lactate Dehydrogenase Troponin T C-Reactive Protein Total Protein Albumin Prealbumin Triglycerides Cholesterol LDL Cholesterol Direct HDL Cholesterol Urine pH Urine WBC (Auto) Urine Creatinine Urine Total Protein Fluid Total Protein Vancomycin Trough Rheumatoid Factor Complement C4 Miscellaneous Test Crossmatch 10/15/16 10/15/16 10/16/16 Unknown Unknown 00:02 WBC 23.4 H RBC 2.78 L Hgb 8.5 L Hct 25.7 L MCV MCH MCHC RDW 18.7 H Plt Count Lymph % (Auto) [place] % (Auto) Lymph # [place] # Baso # Seg Neutrophils % Seg Neuts % (Manual) Lymphocytes % (Manual) Monocytes % (Manual) Eosinophils % (Manual) Basophils % (Manual) Nucleated RBC % Seg Neutrophils # Seg Neutrophils # Man Lymphocytes # (Manual) Monocytes # (Manual) Eosinophils # (Manual) Basophils # (Manual) PT INR Fibrinogen dRVVT Confirm Interp Factor V Activity POC ABG pH POC ABG pCO2 POC ABG pO2 ABG pO2 ABG HCO3 ABG Base Excess ABG Hemoglobin Oxyhemoglobin Sodium Potassium Chloride Carbon Dioxide BUN 73 H Creatinine 2.3 H Glucose 120 H POC Glucose 137 H Lactic Acid Calcium Phosphorus Magnesium Direct Bilirubin AST ALT Alkaline Phosphatase Lactate Dehydrogenase Troponin T C-Reactive Protein Total Protein Albumin Prealbumin Triglycerides Cholesterol LDL Cholesterol Direct HDL Cholesterol Urine pH Urine WBC (Auto) Urine Creatinine Urine Total Protein Fluid Total Protein Vancomycin Trough Rheumatoid Factor Complement C4 Miscellaneous Test Crossmatch 10/16/16 10/16/16 10/16/16 05:44 06:25 06:25 WBC 22.5 H RBC 2.76 L Hgb 8.3 L Hct 25.2 L MCV MCH MCHC RDW 18.3 H Plt Count Lymph % (Auto) [place] % (Auto) Lymph # [place] # Baso # Seg Neutrophils % Seg Neuts % (Manual) Lymphocytes % (Manual) Monocytes % (Manual) Eosinophils % (Manual) Basophils % (Manual) Nucleated RBC % Seg Neutrophils # Seg Neutrophils # Man Lymphocytes # (Manual) Monocytes # (Manual) Eosinophils # (Manual) Basophils # (Manual) PT INR Fibrinogen dRVVT Confirm Interp Factor V Activity POC ABG pH POC ABG pCO2 POC ABG pO2 ABG pO2 ABG HCO3 ABG Base Excess ABG Hemoglobin Oxyhemoglobin Sodium Potassium Chloride Carbon Dioxide BUN 92 H Creatinine 3.0 H Glucose 138 H POC Glucose 110 H Lactic Acid Calcium Phosphorus Magnesium Direct Bilirubin AST ALT Alkaline Phosphatase Lactate Dehydrogenase Troponin T C-Reactive Protein Total Protein Albumin Prealbumin Triglycerides Cholesterol LDL Cholesterol Direct HDL Cholesterol Urine pH Urine WBC (Auto) Urine Creatinine Urine Total Protein Fluid Total Protein Vancomycin Trough Rheumatoid Factor Complement C4 Miscellaneous Test Crossmatch 10/16/16 10/16/16 10/16/16 11:27 11:48 17:36 WBC RBC Hgb Hct MCV MCH MCHC RDW Plt Count Lymph % (Auto) [place] % (Auto) Lymph # [place] # Baso # Seg Neutrophils % Seg Neuts % (Manual) Lymphocytes % (Manual) Monocytes % (Manual) Eosinophils % (Manual) Basophils % (Manual) Nucleated RBC % Seg Neutrophils # Seg Neutrophils # Man Lymphocytes # (Manual) Monocytes # (Manual) Eosinophils # (Manual) Basophils # (Manual) PT INR Fibrinogen dRVVT Confirm Interp Factor V Activity POC ABG pH 7.582 H POC ABG pCO2 27.4 L POC ABG pO2 110 H ABG pO2 ABG HCO3 ABG Base Excess ABG Hemoglobin Oxyhemoglobin Sodium Potassium Chloride Carbon Dioxide BUN Creatinine Glucose POC Glucose 121 H 133 H Lactic Acid Calcium Phosphorus Magnesium Direct Bilirubin AST ALT Alkaline Phosphatase Lactate Dehydrogenase Troponin T C-Reactive Protein Total Protein Albumin Prealbumin Triglycerides Cholesterol LDL Cholesterol Direct HDL Cholesterol Urine pH Urine WBC (Auto) Urine Creatinine Urine Total Protein Fluid Total Protein Vancomycin Trough Rheumatoid Factor Complement C4 Miscellaneous Test Crossmatch 10/16/16 10/17/16 10/17/16 20:48 04:24 04:24 WBC 21.4 H RBC 2.72 L Hgb 8.0 L Hct 25.2 L MCV MCH MCHC RDW 18.0 H Plt Count Lymph % (Auto) [place] % (Auto) Lymph # [place] # Baso # Seg Neutrophils % Seg Neuts % (Manual) Lymphocytes % (Manual) Monocytes % (Manual) Eosinophils % (Manual) Basophils % (Manual) Nucleated RBC % Seg Neutrophils # Seg Neutrophils # Man Lymphocytes # (Manual) Monocytes # (Manual) Eosinophils # (Manual) Basophils # (Manual) PT INR Fibrinogen dRVVT Confirm Interp Factor V Activity POC ABG pH 7.561 H POC ABG pCO2 24.4 L POC ABG pO2 77 L ABG pO2 ABG HCO3 ABG Base Excess ABG Hemoglobin Oxyhemoglobin Sodium 148 H Potassium Chloride Carbon Dioxide BUN 104 H Creatinine 3.0 H Glucose 149 H POC Glucose Lactic Acid Calcium Phosphorus Magnesium Direct Bilirubin AST ALT Alkaline Phosphatase 138 H Lactate Dehydrogenase Troponin T C-Reactive Protein Total Protein 6.2 L Albumin 1.5 L Prealbumin Triglycerides Cholesterol LDL Cholesterol Direct HDL Cholesterol Urine pH Urine WBC (Auto) Urine Creatinine Urine Total Protein Fluid Total Protein Vancomycin Trough Rheumatoid Factor Complement C4 Miscellaneous Test Crossmatch 10/17/16 10/17/16 10/17/16 06:02 12:17 17:14 WBC RBC Hgb Hct MCV MCH MCHC RDW Plt Count Lymph % (Auto) [place] % (Auto) Lymph # [place] # Baso # Seg Neutrophils % Seg Neuts % (Manual) Lymphocytes % (Manual) Monocytes % (Manual) Eosinophils % (Manual) Basophils % (Manual) Nucleated RBC % Seg Neutrophils # Seg Neutrophils # Man Lymphocytes # (Manual) Monocytes # (Manual) Eosinophils # (Manual) Basophils # (Manual) PT INR Fibrinogen dRVVT Confirm Interp Factor V Activity POC ABG pH POC ABG pCO2 POC ABG pO2 ABG pO2 ABG HCO3 ABG Base Excess ABG Hemoglobin Oxyhemoglobin Sodium Potassium Chloride Carbon Dioxide BUN Creatinine Glucose POC Glucose 170 H 167 H 126 H Lactic Acid Calcium Phosphorus Magnesium Direct Bilirubin AST ALT Alkaline Phosphatase Lactate Dehydrogenase Troponin T C-Reactive Protein Total Protein Albumin Prealbumin Triglycerides Cholesterol LDL Cholesterol Direct HDL Cholesterol Urine pH Urine WBC (Auto) Urine Creatinine Urine Total Protein Fluid Total Protein Vancomycin Trough Rheumatoid Factor Complement C4 Miscellaneous Test Crossmatch 10/17/16 10/18/16 10/18/16 23:17 04:00 04:00 WBC 20.7 H RBC 2.47 L Hgb 7.4 L Hct 22.9 L MCV MCH MCHC RDW 17.5 H Plt Count Lymph % (Auto) [place] % (Auto) Lymph # [place] # Baso # Seg Neutrophils % Seg Neuts % (Manual) Lymphocytes % (Manual) Monocytes % (Manual) Eosinophils % (Manual) Basophils % (Manual) Nucleated RBC % Seg Neutrophils # Seg Neutrophils # Man Lymphocytes # (Manual) Monocytes # (Manual) Eosinophils # (Manual) Basophils # (Manual) PT INR Fibrinogen dRVVT Confirm Interp Factor V Activity POC ABG pH POC ABG pCO2 POC ABG pO2 ABG pO2 ABG HCO3 ABG Base Excess ABG Hemoglobin Oxyhemoglobin Sodium 149 H Potassium Chloride 107.9 H Carbon Dioxide 20 L BUN 117 H Creatinine 3.2 H Glucose 119 H POC Glucose 121 H Lactic Acid Calcium Phosphorus Magnesium Direct Bilirubin AST ALT Alkaline Phosphatase Lactate Dehydrogenase Troponin T C-Reactive Protein Total Protein Albumin Prealbumin Triglycerides Cholesterol LDL Cholesterol Direct HDL Cholesterol Urine pH Urine WBC (Auto) Urine Creatinine Urine Total Protein Fluid Total Protein Vancomycin Trough Rheumatoid Factor Complement C4 Miscellaneous Test Crossmatch 10/18/16 10/18/16 10/18/16 05:23 10:46 17:30 WBC RBC Hgb Hct MCV MCH MCHC RDW Plt Count Lymph % (Auto) [place] % (Auto) Lymph # [place] # Baso # Seg Neutrophils % Seg Neuts % (Manual) Lymphocytes % (Manual) Monocytes % (Manual) Eosinophils % (Manual) Basophils % (Manual) Nucleated RBC % Seg Neutrophils # Seg Neutrophils # Man Lymphocytes # (Manual) Monocytes # (Manual) Eosinophils # (Manual) Basophils # (Manual) PT INR Fibrinogen dRVVT Confirm Interp Factor V Activity POC ABG pH POC ABG pCO2 POC ABG pO2 ABG pO2 ABG HCO3 ABG Base Excess ABG Hemoglobin Oxyhemoglobin Sodium Potassium Chloride Carbon Dioxide BUN Creatinine Glucose POC Glucose 119 H 155 H 124 H Lactic Acid Calcium Phosphorus Magnesium Direct Bilirubin AST ALT Alkaline Phosphatase Lactate Dehydrogenase Troponin T C-Reactive Protein Total Protein Albumin Prealbumin Triglycerides Cholesterol LDL Cholesterol Direct HDL Cholesterol Urine pH Urine WBC (Auto) Urine Creatinine Urine Total Protein Fluid Total Protein Vancomycin Trough Rheumatoid Factor Complement C4 Miscellaneous Test Crossmatch 10/19/16 10/19/16 10/19/16 04:00 04:00 05:25 WBC 17.4 H RBC 2.54 L Hgb 7.7 L Hct 23.6 L MCV MCH MCHC RDW 17.3 H Plt Count Lymph % (Auto) [place] % (Auto) Lymph # [place] # Baso # Seg Neutrophils % Seg Neuts % (Manual) Lymphocytes % (Manual) Monocytes % (Manual) Eosinophils % (Manual) Basophils % (Manual) Nucleated RBC % Seg Neutrophils # Seg Neutrophils # Man Lymphocytes # (Manual) Monocytes # (Manual) Eosinophils # (Manual) Basophils # (Manual) PT INR Fibrinogen dRVVT Confirm Interp Factor V Activity POC ABG pH POC ABG pCO2 POC ABG pO2 ABG pO2 ABG HCO3 ABG Base Excess ABG Hemoglobin Oxyhemoglobin Sodium Potassium Chloride Carbon Dioxide BUN 72 H Creatinine 2.1 H Glucose 116 H POC Glucose 119 H Lactic Acid Calcium Phosphorus Magnesium Direct Bilirubin AST ALT Alkaline Phosphatase Lactate Dehydrogenase Troponin T C-Reactive Protein Total Protein Albumin Prealbumin Triglycerides Cholesterol LDL Cholesterol Direct HDL Cholesterol Urine pH Urine WBC (Auto) Urine Creatinine Urine Total Protein Fluid Total Protein Vancomycin Trough Rheumatoid Factor Complement C4 Miscellaneous Test Crossmatch 10/19/16 10/19/16 10/20/16 11:46 23:59 06:00 WBC RBC Hgb Hct MCV MCH MCHC RDW Plt Count Lymph % (Auto) [place] % (Auto) Lymph # [place] # Baso # Seg Neutrophils % Seg Neuts % (Manual) Lymphocytes % (Manual) Monocytes % (Manual) Eosinophils % (Manual) Basophils % (Manual) Nucleated RBC % Seg Neutrophils # Seg Neutrophils # Man Lymphocytes # (Manual) Monocytes # (Manual) Eosinophils # (Manual) Basophils # (Manual) PT INR Fibrinogen dRVVT Confirm Interp Factor V Activity POC ABG pH POC ABG pCO2 POC ABG pO2 ABG pO2 ABG HCO3 ABG Base Excess ABG Hemoglobin Oxyhemoglobin Sodium Potassium Chloride Carbon Dioxide 17 L BUN 94 H Creatinine 2.7 H Glucose POC Glucose 116 H 117 H Lactic Acid Calcium Phosphorus Magnesium Direct Bilirubin AST ALT Alkaline Phosphatase Lactate Dehydrogenase Troponin T C-Reactive Protein Total Protein Albumin Prealbumin Triglycerides Cholesterol LDL Cholesterol Direct HDL Cholesterol Urine pH Urine WBC (Auto) Urine Creatinine Urine Total Protein Fluid Total Protein Vancomycin Trough Rheumatoid Factor Complement C4 Miscellaneous Test Crossmatch 10/20/16 10/20/16 10/20/16 06:00 11:49 16:00 WBC 19.7 H RBC 2.51 L Hgb 7.7 L Hct 23.5 L MCV MCH MCHC RDW 17.5 H Plt Count Lymph % (Auto) [place] % (Auto) Lymph # [place] # Baso # Seg Neutrophils % Seg Neuts % (Manual) Lymphocytes % (Manual) Monocytes % (Manual) Eosinophils % (Manual) Basophils % (Manual) Nucleated RBC % Seg Neutrophils # Seg Neutrophils # Man Lymphocytes # (Manual) Monocytes # (Manual) Eosinophils # (Manual) Basophils # (Manual) PT INR Fibrinogen dRVVT Confirm Interp Factor V Activity POC ABG pH POC ABG pCO2 POC ABG pO2 ABG pO2 ABG HCO3 ABG Base Excess ABG Hemoglobin Oxyhemoglobin Sodium Potassium Chloride Carbon Dioxide BUN Creatinine Glucose POC Glucose 117 H Lactic Acid Calcium Phosphorus Magnesium Direct Bilirubin AST ALT Alkaline Phosphatase Lactate Dehydrogenase Troponin T C-Reactive Protein Total Protein Albumin Prealbumin Triglycerides Cholesterol LDL Cholesterol Direct HDL Cholesterol Urine pH Urine WBC (Auto) Urine Creatinine Urine Total Protein Fluid Total Protein Vancomycin Trough Rheumatoid Factor Complement C4 Miscellaneous Test Flexitest 1 H Crossmatch 10/20/16 10/20/16 10/21/16 18:36 23:39 04:00 WBC RBC Hgb Hct MCV MCH MCHC RDW Plt Count Lymph % (Auto) [place] % (Auto) Lymph # [place] # Baso # Seg Neutrophils % Seg Neuts % (Manual) Lymphocytes % (Manual) Monocytes % (Manual) Eosinophils % (Manual) Basophils % (Manual) Nucleated RBC % Seg Neutrophils # Seg Neutrophils # Man Lymphocytes # (Manual) Monocytes # (Manual) Eosinophils # (Manual) Basophils # (Manual) PT INR Fibrinogen dRVVT Confirm Interp Factor V Activity POC ABG pH POC ABG pCO2 POC ABG pO2 ABG pO2 ABG HCO3 ABG Base Excess ABG Hemoglobin Oxyhemoglobin Sodium Potassium 5.4 H D Chloride Carbon Dioxide 15 L BUN 110 H Creatinine 3.0 H Glucose POC Glucose 127 H 114 H Lactic Acid Calcium Phosphorus Magnesium Direct Bilirubin AST ALT Alkaline Phosphatase Lactate Dehydrogenase Troponin T C-Reactive Protein Total Protein Albumin Prealbumin Triglycerides Cholesterol LDL Cholesterol Direct HDL Cholesterol Urine pH Urine WBC (Auto) Urine Creatinine Urine Total Protein Fluid Total Protein Vancomycin Trough Rheumatoid Factor Complement C4 Miscellaneous Test Crossmatch 10/21/16 10/21/16 10/22/16 05:54 23:46 05:18 WBC RBC Hgb Hct MCV MCH MCHC RDW Plt Count Lymph % (Auto) [place] % (Auto) Lymph # [place] # Baso # Seg Neutrophils % Seg Neuts % (Manual) Lymphocytes % (Manual) Monocytes % (Manual) Eosinophils % (Manual) Basophils % (Manual) Nucleated RBC % Seg Neutrophils # Seg Neutrophils # Man Lymphocytes # (Manual) Monocytes # (Manual) Eosinophils # (Manual) Basophils # (Manual) PT INR Fibrinogen dRVVT Confirm Interp Factor V Activity POC ABG pH POC ABG pCO2 POC ABG pO2 ABG pO2 ABG HCO3 ABG Base Excess ABG Hemoglobin Oxyhemoglobin Sodium Potassium Chloride Carbon Dioxide BUN Creatinine Glucose POC Glucose 119 H 108 H 109 H Lactic Acid Calcium Phosphorus Magnesium Direct Bilirubin AST ALT Alkaline Phosphatase Lactate Dehydrogenase Troponin T C-Reactive Protein Total Protein Albumin Prealbumin Triglycerides Cholesterol LDL Cholesterol Direct HDL Cholesterol Urine pH Urine WBC (Auto) Urine Creatinine Urine Total Protein Fluid Total Protein Vancomycin Trough Rheumatoid Factor Complement C4 Miscellaneous Test Crossmatch 10/22/16 10/22/16 10/22/16 06:40 06:40 06:40 WBC 14.0 H RBC 2.03 L Hgb 7.0 L Hct 20.5 L MCV 98 H MCH 34 H MCHC 35 H RDW 17.8 H Plt Count Lymph % (Auto) [place] % (Auto) 9.9 H Lymph # [place] # 1.4 H Baso # 0.2 H Seg Neutrophils % 72.0 H Seg Neuts % (Manual) Lymphocytes % (Manual) Monocytes % (Manual) Eosinophils % (Manual) Basophils % (Manual) Nucleated RBC % Seg Neutrophils # 10.0 H Seg Neutrophils # Man Lymphocytes # (Manual) Monocytes # (Manual) Eosinophils # (Manual) Basophils # (Manual) PT INR Fibrinogen dRVVT Confirm Interp Factor V Activity POC ABG pH POC ABG pCO2 POC ABG pO2 ABG pO2 ABG HCO3 ABG Base Excess ABG Hemoglobin Oxyhemoglobin Sodium 130 L D Potassium Chloride 92.4 L Carbon Dioxide 20 L BUN 50 H Creatinine 1.6 H Glucose 589 H* POC Glucose Lactic Acid Calcium 7.8 L D Phosphorus Magnesium 1.60 L Direct Bilirubin AST ALT Alkaline Phosphatase Lactate Dehydrogenase Troponin T C-Reactive Protein Total Protein Albumin Prealbumin Triglycerides Cholesterol LDL Cholesterol Direct HDL Cholesterol Urine pH Urine WBC (Auto) Urine Creatinine Urine Total Protein Fluid Total Protein Vancomycin Trough Rheumatoid Factor Complement C4 Miscellaneous Test Crossmatch 10/22/16 10/22/16 10/22/16 11:39 16:44 23:36 WBC RBC Hgb Hct MCV MCH MCHC RDW Plt Count Lymph % (Auto) [place] % (Auto) Lymph # [place] # Baso # Seg Neutrophils % Seg Neuts % (Manual) Lymphocytes % (Manual) Monocytes % (Manual) Eosinophils % (Manual) Basophils % (Manual) Nucleated RBC % Seg Neutrophils # Seg Neutrophils # Man Lymphocytes # (Manual) Monocytes # (Manual) Eosinophils # (Manual) Basophils # (Manual) PT INR Fibrinogen dRVVT Confirm Interp Factor V Activity POC ABG pH POC ABG pCO2 POC ABG pO2 ABG pO2 ABG HCO3 ABG Base Excess ABG Hemoglobin Oxyhemoglobin Sodium Potassium Chloride Carbon Dioxide BUN Creatinine Glucose POC Glucose 142 H 163 H 123 H Lactic Acid Calcium Phosphorus Magnesium Direct Bilirubin AST ALT Alkaline Phosphatase Lactate Dehydrogenase Troponin T C-Reactive Protein Total Protein Albumin Prealbumin Triglycerides Cholesterol LDL Cholesterol Direct HDL Cholesterol Urine pH Urine WBC (Auto) Urine Creatinine Urine Total Protein Fluid Total Protein Vancomycin Trough Rheumatoid Factor Complement C4 Miscellaneous Test Crossmatch 10/23/16 10/23/16 10/23/16 04:58 06:00 12:12 WBC RBC Hgb Hct MCV MCH MCHC RDW Plt Count Lymph % (Auto) [place] % (Auto) Lymph # [place] # Baso # Seg Neutrophils % Seg Neuts % (Manual) Lymphocytes % (Manual) Monocytes % (Manual) Eosinophils % (Manual) Basophils % (Manual) Nucleated RBC % Seg Neutrophils # Seg Neutrophils # Man Lymphocytes # (Manual) Monocytes # (Manual) Eosinophils # (Manual) Basophils # (Manual) PT INR Fibrinogen dRVVT Confirm Interp Factor V Activity POC ABG pH POC ABG pCO2 POC ABG pO2 ABG pO2 ABG HCO3 ABG Base Excess ABG Hemoglobin Oxyhemoglobin Sodium 133 L Potassium 3.5 L Chloride 96.1 L Carbon Dioxide 18 L BUN 76 H Creatinine 2.1 H Glucose POC Glucose 133 H 138 H Lactic Acid Calcium 8.3 L Phosphorus Magnesium Direct Bilirubin AST ALT Alkaline Phosphatase Lactate Dehydrogenase Troponin T C-Reactive Protein Total Protein Albumin Prealbumin Triglycerides Cholesterol LDL Cholesterol Direct HDL Cholesterol Urine pH Urine WBC (Auto) Urine Creatinine Urine Total Protein Fluid Total Protein Vancomycin Trough Rheumatoid Factor Complement C4 Miscellaneous Test Crossmatch 10/23/16 10/23/16 10/24/16 16:53 23:37 04:00 WBC RBC Hgb Hct MCV MCH MCHC RDW Plt Count Lymph % (Auto) [place] % (Auto) Lymph # [place] # Baso # Seg Neutrophils % Seg Neuts % (Manual) Lymphocytes % (Manual) Monocytes % (Manual) Eosinophils % (Manual) Basophils % (Manual) Nucleated RBC % Seg Neutrophils # Seg Neutrophils # Man Lymphocytes # (Manual) Monocytes # (Manual) Eosinophils # (Manual) Basophils # (Manual) PT INR Fibrinogen dRVVT Confirm Interp Factor V Activity POC ABG pH POC ABG pCO2 POC ABG pO2 ABG pO2 ABG HCO3 ABG Base Excess ABG Hemoglobin Oxyhemoglobin Sodium 131 L Potassium Chloride 94.5 L Carbon Dioxide 19 L BUN 97 H Creatinine 2.6 H Glucose 110 H POC Glucose 125 H 123 H Lactic Acid Calcium 8.3 L Phosphorus Magnesium Direct Bilirubin AST ALT Alkaline Phosphatase Lactate Dehydrogenase Troponin T C-Reactive Protein Total Protein Albumin Prealbumin Triglycerides Cholesterol LDL Cholesterol Direct HDL Cholesterol Urine pH Urine WBC (Auto) Urine Creatinine Urine Total Protein Fluid Total Protein Vancomycin Trough Rheumatoid Factor Complement C4 Miscellaneous Test Crossmatch 10/24/16 10/24/16 10/24/16 07:49 11:39 17:52 WBC RBC Hgb 6.0 L Hct 19.7 L* MCV MCH MCHC RDW Plt Count Lymph % (Auto) [place] % (Auto) Lymph # [place] # Baso # Seg Neutrophils % Seg Neuts % (Manual) Lymphocytes % (Manual) Monocytes % (Manual) Eosinophils % (Manual) Basophils % (Manual) Nucleated RBC % Seg Neutrophils # Seg Neutrophils # Man Lymphocytes # (Manual) Monocytes # (Manual) Eosinophils # (Manual) Basophils # (Manual) PT INR Fibrinogen dRVVT Confirm Interp Factor V Activity POC ABG pH POC ABG pCO2 POC ABG pO2 ABG pO2 ABG HCO3 ABG Base Excess ABG Hemoglobin Oxyhemoglobin Sodium Potassium Chloride Carbon Dioxide BUN Creatinine Glucose POC Glucose 106 H 158 H Lactic Acid Calcium Phosphorus Magnesium Direct Bilirubin AST ALT Alkaline Phosphatase Lactate Dehydrogenase Troponin T C-Reactive Protein Total Protein Albumin Prealbumin Triglycerides Cholesterol LDL Cholesterol Direct HDL Cholesterol Urine pH Urine WBC (Auto) Urine Creatinine Urine Total Protein Fluid Total Protein Vancomycin Trough Rheumatoid Factor Complement C4 Miscellaneous Test Crossmatch 10/24/16 10/24/16 10/24/16 20:00 22:27 Unknown WBC RBC Hgb 9.4 L D Hct 27.5 L D MCV MCH MCHC RDW Plt Count Lymph % (Auto) [place] % (Auto) Lymph # [place] # Baso # Seg Neutrophils % Seg Neuts % (Manual) Lymphocytes % (Manual) Monocytes % (Manual) Eosinophils % (Manual) Basophils % (Manual) Nucleated RBC % Seg Neutrophils # Seg Neutrophils # Man Lymphocytes # (Manual) Monocytes # (Manual) Eosinophils # (Manual) Basophils # (Manual) PT INR Fibrinogen dRVVT Confirm Interp Factor V Activity POC ABG pH POC ABG pCO2 POC ABG pO2 ABG pO2 ABG HCO3 ABG Base Excess ABG Hemoglobin Oxyhemoglobin Sodium Potassium Chloride Carbon Dioxide BUN Creatinine Glucose POC Glucose 125 H Lactic Acid Calcium Phosphorus Magnesium Direct Bilirubin AST ALT Alkaline Phosphatase Lactate Dehydrogenase Troponin T C-Reactive Protein Total Protein Albumin Prealbumin Triglycerides Cholesterol LDL Cholesterol Direct HDL Cholesterol Urine pH Urine WBC (Auto) Urine Creatinine Urine Total Protein Fluid Total Protein Vancomycin Trough Rheumatoid Factor Complement C4 Miscellaneous Test Crossmatch See Detail 10/25/16 10/25/16 10/25/16 04:00 04:00 04:00 WBC 14.2 H RBC 2.98 L Hgb 9.0 L Hct 26.2 L MCV MCH MCHC RDW 16.6 H Plt Count Lymph % (Auto) [place] % (Auto) 10.7 H Lymph # [place] # 1.5 H Baso # Seg Neutrophils % 73.6 H Seg Neuts % (Manual) Lymphocytes % (Manual) Monocytes % (Manual) Eosinophils % (Manual) Basophils % (Manual) Nucleated RBC % Seg Neutrophils # 10.5 H Seg Neutrophils # Man Lymphocytes # (Manual) Monocytes # (Manual) Eosinophils # (Manual) Basophils # (Manual) PT INR Fibrinogen dRVVT Confirm Interp Factor V Activity POC ABG pH POC ABG pCO2 POC ABG pO2 ABG pO2 ABG HCO3 ABG Base Excess ABG Hemoglobin Oxyhemoglobin Sodium 132 L Potassium Chloride 94.7 L Carbon Dioxide BUN 51 H Creatinine 1.6 H Glucose 130 H POC Glucose Lactic Acid Calcium 8.3 L Phosphorus 1.60 L D Magnesium Direct Bilirubin AST ALT Alkaline Phosphatase Lactate Dehydrogenase Troponin T C-Reactive Protein Total Protein Albumin Prealbumin Triglycerides Cholesterol LDL Cholesterol Direct HDL Cholesterol Urine pH Urine WBC (Auto) Urine Creatinine Urine Total Protein Fluid Total Protein Vancomycin Trough Rheumatoid Factor Complement C4 Miscellaneous Test Crossmatch 10/25/16 10/25/16 10/25/16 04:32 11:48 17:22 WBC RBC Hgb Hct MCV MCH MCHC RDW Plt Count Lymph % (Auto) [place] % (Auto) Lymph # [place] # Baso # Seg Neutrophils % Seg Neuts % (Manual) Lymphocytes % (Manual) Monocytes % (Manual) Eosinophils % (Manual) Basophils % (Manual) Nucleated RBC % Seg Neutrophils # Seg Neutrophils # Man Lymphocytes # (Manual) Monocytes # (Manual) Eosinophils # (Manual) Basophils # (Manual) PT INR Fibrinogen dRVVT Confirm Interp Factor V Activity POC ABG pH POC ABG pCO2 POC ABG pO2 ABG pO2 ABG HCO3 ABG Base Excess ABG Hemoglobin Oxyhemoglobin Sodium Potassium Chloride Carbon Dioxide BUN Creatinine Glucose POC Glucose 124 H 171 H 120 H Lactic Acid Calcium Phosphorus Magnesium Direct Bilirubin AST ALT Alkaline Phosphatase Lactate Dehydrogenase Troponin T C-Reactive Protein Total Protein Albumin Prealbumin Triglycerides Cholesterol LDL Cholesterol Direct HDL Cholesterol Urine pH Urine WBC (Auto) Urine Creatinine Urine Total Protein Fluid Total Protein Vancomycin Trough Rheumatoid Factor Complement C4 Miscellaneous Test Crossmatch 10/26/16 10/26/16 10/26/16 04:54 07:06 07:06 WBC 16.9 H RBC 3.06 L Hgb 9.1 L Hct 26.9 L MCV MCH MCHC RDW 16.9 H Plt Count Lymph % (Auto) [place] % (Auto) Lymph # [place] # Baso # Seg Neutrophils % Seg Neuts % (Manual) 71.0 H Lymphocytes % (Manual) 5.0 L Monocytes % (Manual) 12.0 H Eosinophils % (Manual) Basophils % (Manual) Nucleated RBC % Seg Neutrophils # Seg Neutrophils # Man 12.0 H Lymphocytes # (Manual) 0.8 L Monocytes # (Manual) 2.0 H Eosinophils # (Manual) Basophils # (Manual) PT INR Fibrinogen dRVVT Confirm Interp Factor V Activity POC ABG pH POC ABG pCO2 POC ABG pO2 ABG pO2 ABG HCO3 ABG Base Excess ABG Hemoglobin Oxyhemoglobin Sodium 135 L Potassium Chloride 97.1 L Carbon Dioxide BUN 73 H Creatinine 2.2 H Glucose 117 H POC Glucose 123 H Lactic Acid Calcium Phosphorus 1.70 L Magnesium Direct Bilirubin AST ALT Alkaline Phosphatase Lactate Dehydrogenase Troponin T C-Reactive Protein Total Protein Albumin Prealbumin Triglycerides Cholesterol LDL Cholesterol Direct HDL Cholesterol Urine pH Urine WBC (Auto) Urine Creatinine Urine Total Protein Fluid Total Protein Vancomycin Trough Rheumatoid Factor Complement C4 Miscellaneous Test Crossmatch 10/26/16 10/26/16 10/26/16 12:12 17:29 23:42 WBC RBC Hgb Hct MCV MCH MCHC RDW Plt Count Lymph % (Auto) [place] % (Auto) Lymph # [place] # Baso # Seg Neutrophils % Seg Neuts % (Manual) Lymphocytes % (Manual) Monocytes % (Manual) Eosinophils % (Manual) Basophils % (Manual) Nucleated RBC % Seg Neutrophils # Seg Neutrophils # Man Lymphocytes # (Manual) Monocytes # (Manual) Eosinophils # (Manual) Basophils # (Manual) PT INR Fibrinogen dRVVT Confirm Interp Factor V Activity POC ABG pH POC ABG pCO2 POC ABG pO2 ABG pO2 ABG HCO3 ABG Base Excess ABG Hemoglobin Oxyhemoglobin Sodium Potassium Chloride Carbon Dioxide BUN Creatinine Glucose POC Glucose 126 H 161 H 118 H Lactic Acid Calcium Phosphorus Magnesium Direct Bilirubin AST ALT Alkaline Phosphatase Lactate Dehydrogenase Troponin T C-Reactive Protein Total Protein Albumin Prealbumin Triglycerides Cholesterol LDL Cholesterol Direct HDL Cholesterol Urine pH Urine WBC (Auto) Urine Creatinine Urine Total Protein Fluid Total Protein Vancomycin Trough Rheumatoid Factor Complement C4 Miscellaneous Test Crossmatch 10/27/16 10/27/16 10/27/16 05:03 06:30 06:30 WBC 13.9 H RBC 3.09 L Hgb 9.2 L Hct 27.5 L MCV MCH MCHC RDW 17.0 H Plt Count Lymph % (Auto) [place] % (Auto) Lymph # [place] # Baso # Seg Neutrophils % Seg Neuts % (Manual) 78.0 H Lymphocytes % (Manual) Monocytes % (Manual) Eosinophils % (Manual) Basophils % (Manual) Nucleated RBC % 2.0 H Seg Neutrophils # Seg Neutrophils # Man 10.8 H Lymphocytes # (Manual) Monocytes # (Manual) 1.0 H Eosinophils # (Manual) Basophils # (Manual) PT INR Fibrinogen dRVVT Confirm Interp Factor V Activity POC ABG pH POC ABG pCO2 POC ABG pO2 ABG pO2 ABG HCO3 ABG Base Excess ABG Hemoglobin Oxyhemoglobin Sodium Potassium Chloride Carbon Dioxide BUN 40 H Creatinine 1.5 H Glucose 135 H POC Glucose 107 H Lactic Acid Calcium 8.3 L Phosphorus 1.30 L D Magnesium Direct Bilirubin AST ALT Alkaline Phosphatase Lactate Dehydrogenase Troponin T C-Reactive Protein Total Protein Albumin Prealbumin Triglycerides Cholesterol LDL Cholesterol Direct HDL Cholesterol Urine pH Urine WBC (Auto) Urine Creatinine Urine Total Protein Fluid Total Protein Vancomycin Trough Rheumatoid Factor Complement C4 Miscellaneous Test Crossmatch 10/27/16 10/27/16 10/27/16 13:27 18:07 23:40 WBC RBC Hgb Hct MCV MCH MCHC RDW Plt Count Lymph % (Auto) [place] % (Auto) Lymph # [place] # Baso # Seg Neutrophils % Seg Neuts % (Manual) Lymphocytes % (Manual) Monocytes % (Manual) Eosinophils % (Manual) Basophils % (Manual) Nucleated RBC % Seg Neutrophils # Seg Neutrophils # Man Lymphocytes # (Manual) Monocytes # (Manual) Eosinophils # (Manual) Basophils # (Manual) PT INR Fibrinogen dRVVT Confirm Interp Factor V Activity POC ABG pH POC ABG pCO2 POC ABG pO2 ABG pO2 ABG HCO3 ABG Base Excess ABG Hemoglobin Oxyhemoglobin Sodium Potassium Chloride Carbon Dioxide BUN Creatinine Glucose POC Glucose 117 H 121 H 118 H Lactic Acid Calcium Phosphorus Magnesium Direct Bilirubin AST ALT Alkaline Phosphatase Lactate Dehydrogenase Troponin T C-Reactive Protein Total Protein Albumin Prealbumin Triglycerides Cholesterol LDL Cholesterol Direct HDL Cholesterol Urine pH Urine WBC (Auto) Urine Creatinine Urine Total Protein Fluid Total Protein Vancomycin Trough Rheumatoid Factor Complement C4 Miscellaneous Test Crossmatch 10/28/16 10/28/16 10/28/16 05:48 06:45 06:45 WBC 14.7 H RBC 3.05 L Hgb 9.0 L Hct 26.9 L MCV MCH MCHC RDW 16.8 H Plt Count Lymph % (Auto) 8.2 L [place] % (Auto) 8.4 H Lymph # [place] # 1.2 H Baso # Seg Neutrophils % 81.9 H Seg Neuts % (Manual) Lymphocytes % (Manual) Monocytes % (Manual) Eosinophils % (Manual) Basophils % (Manual) Nucleated RBC % Seg Neutrophils # 12.1 H Seg Neutrophils # Man Lymphocytes # (Manual) Monocytes # (Manual) Eosinophils # (Manual) Basophils # (Manual) PT INR Fibrinogen dRVVT Confirm Interp Factor V Activity POC ABG pH POC ABG pCO2 POC ABG pO2 ABG pO2 ABG HCO3 ABG Base Excess ABG Hemoglobin Oxyhemoglobin Sodium Potassium Chloride Carbon Dioxide BUN 60 H Creatinine 1.9 H Glucose 120 H POC Glucose 114 H Lactic Acid Calcium Phosphorus Magnesium Direct Bilirubin AST ALT Alkaline Phosphatase Lactate Dehydrogenase Troponin T C-Reactive Protein Total Protein Albumin Prealbumin Triglycerides Cholesterol LDL Cholesterol Direct HDL Cholesterol Urine pH Urine WBC (Auto) Urine Creatinine Urine Total Protein Fluid Total Protein Vancomycin Trough Rheumatoid Factor Complement C4 Miscellaneous Test Crossmatch 10/28/16 10/28/16 10/29/16 17:08 23:50 05:10 WBC RBC Hgb Hct MCV MCH MCHC RDW Plt Count Lymph % (Auto) [place] % (Auto) Lymph # [place] # Baso # Seg Neutrophils % Seg Neuts % (Manual) Lymphocytes % (Manual) Monocytes % (Manual) Eosinophils % (Manual) Basophils % (Manual) Nucleated RBC % Seg Neutrophils # Seg Neutrophils # Man Lymphocytes # (Manual) Monocytes # (Manual) Eosinophils # (Manual) Basophils # (Manual) PT INR Fibrinogen dRVVT Confirm Interp Factor V Activity POC ABG pH POC ABG pCO2 POC ABG pO2 ABG pO2 ABG HCO3 ABG Base Excess ABG Hemoglobin Oxyhemoglobin Sodium Potassium Chloride Carbon Dioxide BUN Creatinine Glucose POC Glucose 109 H 110 H 124 H Lactic Acid Calcium Phosphorus Magnesium Direct Bilirubin AST ALT Alkaline Phosphatase Lactate Dehydrogenase Troponin T C-Reactive Protein Total Protein Albumin Prealbumin Triglycerides Cholesterol LDL Cholesterol Direct HDL Cholesterol Urine pH Urine WBC (Auto) Urine Creatinine Urine Total Protein Fluid Total Protein Vancomycin Trough Rheumatoid Factor Complement C4 Miscellaneous Test Crossmatch 10/29/16 10/29/16 10/29/16 07:45 07:45 12:19 WBC 14.7 H RBC 3.15 L Hgb 9.3 L Hct 28.9 L MCV MCH MCHC RDW 17.0 H Plt Count Lymph % (Auto) 11.9 L [place] % (Auto) 8.6 H Lymph # [place] # 1.3 H Baso # Seg Neutrophils % 78.1 H Seg Neuts % (Manual) Lymphocytes % (Manual) Monocytes % (Manual) Eosinophils % (Manual) Basophils % (Manual) Nucleated RBC % Seg Neutrophils # 11.4 H Seg Neutrophils # Man Lymphocytes # (Manual) Monocytes # (Manual) Eosinophils # (Manual) Basophils # (Manual) PT INR Fibrinogen dRVVT Confirm Interp Factor V Activity POC ABG pH POC ABG pCO2 POC ABG pO2 ABG pO2 ABG HCO3 ABG Base Excess ABG Hemoglobin Oxyhemoglobin Sodium Potassium 5.1 H Chloride Carbon Dioxide 19 L BUN 78 H Creatinine 2.2 H Glucose 116 H POC Glucose 118 H Lactic Acid Calcium Phosphorus Magnesium Direct Bilirubin AST ALT Alkaline Phosphatase Lactate Dehydrogenase Troponin T C-Reactive Protein Total Protein Albumin Prealbumin Triglycerides Cholesterol LDL Cholesterol Direct HDL Cholesterol Urine pH Urine WBC (Auto) Urine Creatinine Urine Total Protein Fluid Total Protein Vancomycin Trough Rheumatoid Factor Complement C4 Miscellaneous Test Crossmatch 10/29/16 10/30/16 10/30/16 17:49 01:52 03:28 WBC RBC Hgb Hct MCV MCH MCHC RDW Plt Count Lymph % (Auto) [place] % (Auto) Lymph # [place] # Baso # Seg Neutrophils % Seg Neuts % (Manual) Lymphocytes % (Manual) Monocytes % (Manual) Eosinophils % (Manual) Basophils % (Manual) Nucleated RBC % Seg Neutrophils # Seg Neutrophils # Man Lymphocytes # (Manual) Monocytes # (Manual) Eosinophils # (Manual) Basophils # (Manual) PT INR Fibrinogen dRVVT Confirm Interp Factor V Activity POC ABG pH POC ABG pCO2 POC ABG pO2 ABG pO2 ABG HCO3 ABG Base Excess ABG Hemoglobin Oxyhemoglobin Sodium Potassium 5.4 H Chloride 97.5 L Carbon Dioxide 19 L BUN 90 H Creatinine 2.5 H Glucose POC Glucose 120 H 129 H Lactic Acid Calcium Phosphorus 5.20 H Magnesium Direct Bilirubin AST ALT Alkaline Phosphatase Lactate Dehydrogenase Troponin T C-Reactive Protein Total Protein Albumin Prealbumin Triglycerides Cholesterol LDL Cholesterol Direct HDL Cholesterol Urine pH Urine WBC (Auto) Urine Creatinine Urine Total Protein Fluid Total Protein Vancomycin Trough Rheumatoid Factor Complement C4 Miscellaneous Test Crossmatch 10/30/16 10/30/16 10/30/16 03:28 08:19 08:19 WBC 11.6 H 15.9 H RBC 2.75 L 2.82 L Hgb 7.9 L 8.3 L Hct 24.2 L 25.2 L MCV MCH MCHC RDW 16.7 H 17.2 H Plt Count Lymph % (Auto) [place] % (Auto) 9.8 H Lymph # [place] # 1.1 H Baso # Seg Neutrophils % 74.2 H Seg Neuts % (Manual) Lymphocytes % (Manual) Monocytes % (Manual) Eosinophils % (Manual) Basophils % (Manual) Nucleated RBC % Seg Neutrophils # 8.6 H Seg Neutrophils # Man Lymphocytes # (Manual) Monocytes # (Manual) Eosinophils # (Manual) Basophils # (Manual) PT INR Fibrinogen dRVVT Confirm Interp Factor V Activity POC ABG pH POC ABG pCO2 POC ABG pO2 ABG pO2 ABG HCO3 ABG Base Excess ABG Hemoglobin Oxyhemoglobin Sodium Potassium 5.3 H Chloride 97.4 L Carbon Dioxide 19 L BUN 93 H Creatinine 2.6 H Glucose POC Glucose Lactic Acid Calcium Phosphorus Magnesium Direct Bilirubin AST ALT Alkaline Phosphatase Lactate Dehydrogenase Troponin T C-Reactive Protein Total Protein Albumin Prealbumin Triglycerides Cholesterol LDL Cholesterol Direct HDL Cholesterol Urine pH Urine WBC (Auto) Urine Creatinine Urine Total Protein Fluid Total Protein Vancomycin Trough Rheumatoid Factor Complement C4 Miscellaneous Test Crossmatch 10/30/16 10/30/16 10/31/16 17:11 23:56 00:40 WBC RBC Hgb Hct MCV MCH MCHC RDW Plt Count Lymph % (Auto) [place] % (Auto) Lymph # [place] # Baso # Seg Neutrophils % Seg Neuts % (Manual) Lymphocytes % (Manual) Monocytes % (Manual) Eosinophils % (Manual) Basophils % (Manual) Nucleated RBC % Seg Neutrophils # Seg Neutrophils # Man Lymphocytes # (Manual) Monocytes # (Manual) Eosinophils # (Manual) Basophils # (Manual) PT INR Fibrinogen dRVVT Confirm Interp Factor V Activity POC ABG pH POC ABG pCO2 POC ABG pO2 ABG pO2 ABG HCO3 ABG Base Excess ABG Hemoglobin Oxyhemoglobin Sodium Potassium Chloride Carbon Dioxide BUN Creatinine Glucose POC Glucose 106 H 117 H 120 H Lactic Acid Calcium Phosphorus Magnesium Direct Bilirubin AST ALT Alkaline Phosphatase Lactate Dehydrogenase Troponin T C-Reactive Protein Total Protein Albumin Prealbumin Triglycerides Cholesterol LDL Cholesterol Direct HDL Cholesterol Urine pH Urine WBC (Auto) Urine Creatinine Urine Total Protein Fluid Total Protein Vancomycin Trough Rheumatoid Factor Complement C4 Miscellaneous Test Crossmatch 10/31/16 10/31/16 10/31/16 05:43 07:15 07:15 WBC 12.1 H RBC 2.63 L Hgb 7.7 L Hct 23.3 L MCV MCH MCHC RDW 16.7 H Plt Count Lymph % (Auto) 11.7 L [place] % (Auto) 7.7 H Lymph # [place] # 0.9 H Baso # Seg Neutrophils % 78.0 H Seg Neuts % (Manual) Lymphocytes % (Manual) Monocytes % (Manual) Eosinophils % (Manual) Basophils % (Manual) Nucleated RBC % Seg Neutrophils # 9.4 H Seg Neutrophils # Man Lymphocytes # (Manual) Monocytes # (Manual) Eosinophils # (Manual) Basophils # (Manual) PT INR Fibrinogen dRVVT Confirm Interp Factor V Activity POC ABG pH POC ABG pCO2 POC ABG pO2 ABG pO2 ABG HCO3 ABG Base Excess ABG Hemoglobin Oxyhemoglobin Sodium Potassium Chloride 96.4 L Carbon Dioxide 21 L BUN 99 H Creatinine 2.6 H Glucose 144 H POC Glucose 125 H Lactic Acid Calcium Phosphorus 4.80 H Magnesium Direct Bilirubin AST ALT Alkaline Phosphatase Lactate Dehydrogenase Troponin T C-Reactive Protein Total Protein Albumin Prealbumin Triglycerides Cholesterol LDL Cholesterol Direct HDL Cholesterol Urine pH Urine WBC (Auto) Urine Creatinine Urine Total Protein Fluid Total Protein Vancomycin Trough Rheumatoid Factor Complement C4 Miscellaneous Test Crossmatch 10/31/16 10/31/16 11/01/16 11:46 18:34 00:20 WBC RBC Hgb Hct MCV MCH MCHC RDW Plt Count Lymph % (Auto) [place] % (Auto) Lymph # [place] # Baso # Seg Neutrophils % Seg Neuts % (Manual) Lymphocytes % (Manual) Monocytes % (Manual) Eosinophils % (Manual) Basophils % (Manual) Nucleated RBC % Seg Neutrophils # Seg Neutrophils # Man Lymphocytes # (Manual) Monocytes # (Manual) Eosinophils # (Manual) Basophils # (Manual) PT INR Fibrinogen dRVVT Confirm Interp Factor V Activity POC ABG pH POC ABG pCO2 POC ABG pO2 ABG pO2 ABG HCO3 ABG Base Excess ABG Hemoglobin Oxyhemoglobin Sodium Potassium Chloride Carbon Dioxide BUN Creatinine Glucose POC Glucose 159 H 140 H 132 H Lactic Acid Calcium Phosphorus Magnesium Direct Bilirubin AST ALT Alkaline Phosphatase Lactate Dehydrogenase Troponin T C-Reactive Protein Total Protein Albumin Prealbumin Triglycerides Cholesterol LDL Cholesterol Direct HDL Cholesterol Urine pH Urine WBC (Auto) Urine Creatinine Urine Total Protein Fluid Total Protein Vancomycin Trough Rheumatoid Factor Complement C4 Miscellaneous Test Crossmatch 11/01/16 11/01/16 11/01/16 04:55 04:55 06:11 WBC 11.2 H RBC 2.68 L Hgb 7.5 L Hct 23.7 L MCV MCH MCHC RDW 16.1 H Plt Count Lymph % (Auto) [place] % (Auto) 9.8 H Lymph # [place] # 1.1 H Baso # Seg Neutrophils % 70.8 H Seg Neuts % (Manual) Lymphocytes % (Manual) Monocytes % (Manual) Eosinophils % (Manual) Basophils % (Manual) Nucleated RBC % Seg Neutrophils # 7.9 H Seg Neutrophils # Man Lymphocytes # (Manual) Monocytes # (Manual) Eosinophils # (Manual) Basophils # (Manual) PT INR Fibrinogen dRVVT Confirm Interp Factor V Activity POC ABG pH POC ABG pCO2 POC ABG pO2 ABG pO2 ABG HCO3 ABG Base Excess ABG Hemoglobin Oxyhemoglobin Sodium Potassium 3.3 L D Chloride Carbon Dioxide BUN 61 H Creatinine 1.9 H Glucose 114 H POC Glucose 115 H Lactic Acid Calcium Phosphorus 1.80 L D Magnesium Direct Bilirubin AST ALT Alkaline Phosphatase Lactate Dehydrogenase Troponin T C-Reactive Protein Total Protein Albumin Prealbumin Triglycerides Cholesterol LDL Cholesterol Direct HDL Cholesterol Urine pH Urine WBC (Auto) Urine Creatinine Urine Total Protein Fluid Total Protein Vancomycin Trough Rheumatoid Factor Complement C4 Miscellaneous Test Crossmatch 11/01/16 11/01/16 11/01/16 12:29 18:23 23:58 WBC RBC Hgb Hct MCV MCH MCHC RDW Plt Count Lymph % (Auto) [place] % (Auto) Lymph # [place] # Baso # Seg Neutrophils % Seg Neuts % (Manual) Lymphocytes % (Manual) Monocytes % (Manual) Eosinophils % (Manual) Basophils % (Manual) Nucleated RBC % Seg Neutrophils # Seg Neutrophils # Man Lymphocytes # (Manual) Monocytes # (Manual) Eosinophils # (Manual) Basophils # (Manual) PT INR Fibrinogen dRVVT Confirm Interp Factor V Activity POC ABG pH POC ABG pCO2 POC ABG pO2 ABG pO2 ABG HCO3 ABG Base Excess ABG Hemoglobin Oxyhemoglobin Sodium Potassium Chloride Carbon Dioxide BUN Creatinine Glucose POC Glucose 142 H 143 H 128 H Lactic Acid Calcium Phosphorus Magnesium Direct Bilirubin AST ALT Alkaline Phosphatase Lactate Dehydrogenase Troponin T C-Reactive Protein Total Protein Albumin Prealbumin Triglycerides Cholesterol LDL Cholesterol Direct HDL Cholesterol Urine pH Urine WBC (Auto) Urine Creatinine Urine Total Protein Fluid Total Protein Vancomycin Trough Rheumatoid Factor Complement C4 Miscellaneous Test Crossmatch 11/02/16 11/02/16 11/02/16 04:16 05:29 11:58 WBC RBC Hgb Hct MCV MCH MCHC RDW Plt Count Lymph % (Auto) [place] % (Auto) Lymph # [place] # Baso # Seg Neutrophils % Seg Neuts % (Manual) Lymphocytes % (Manual) Monocytes % (Manual) Eosinophils % (Manual) Basophils % (Manual) Nucleated RBC % Seg Neutrophils # Seg Neutrophils # Man Lymphocytes # (Manual) Monocytes # (Manual) Eosinophils # (Manual) Basophils # (Manual) PT INR Fibrinogen dRVVT Confirm Interp Factor V Activity POC ABG pH POC ABG pCO2 POC ABG pO2 ABG pO2 ABG HCO3 ABG Base Excess ABG Hemoglobin Oxyhemoglobin Sodium Potassium 3.1 L Chloride Carbon Dioxide BUN 73 H Creatinine 2.3 H Glucose 112 H POC Glucose 135 H 149 H Lactic Acid Calcium Phosphorus Magnesium Direct Bilirubin AST ALT Alkaline Phosphatase Lactate Dehydrogenase Troponin T C-Reactive Protein Total Protein Albumin Prealbumin Triglycerides Cholesterol LDL Cholesterol Direct HDL Cholesterol Urine pH Urine WBC (Auto) Urine Creatinine Urine Total Protein Fluid Total Protein Vancomycin Trough Rheumatoid Factor Complement C4 Miscellaneous Test Crossmatch 11/02/16 11/02/16 11/03/16 17:42 22:54 06:00 WBC RBC Hgb Hct MCV MCH MCHC RDW Plt Count Lymph % (Auto) [place] % (Auto) Lymph # [place] # Baso # Seg Neutrophils % Seg Neuts % (Manual) Lymphocytes % (Manual) Monocytes % (Manual) Eosinophils % (Manual) Basophils % (Manual) Nucleated RBC % Seg Neutrophils # Seg Neutrophils # Man Lymphocytes # (Manual) Monocytes # (Manual) Eosinophils # (Manual) Basophils # (Manual) PT INR Fibrinogen dRVVT Confirm Interp Factor V Activity POC ABG pH POC ABG pCO2 POC ABG pO2 ABG pO2 ABG HCO3 ABG Base Excess ABG Hemoglobin Oxyhemoglobin Sodium Potassium Chloride 96.7 L Carbon Dioxide BUN 41 H Creatinine 1.5 H Glucose 145 H POC Glucose 182 H 115 H Lactic Acid Calcium Phosphorus 1.60 L D Magnesium 1.50 L Direct Bilirubin AST ALT Alkaline Phosphatase Lactate Dehydrogenase Troponin T C-Reactive Protein Total Protein Albumin Prealbumin Triglycerides Cholesterol LDL Cholesterol Direct HDL Cholesterol Urine pH Urine WBC (Auto) Urine Creatinine Urine Total Protein Fluid Total Protein Vancomycin Trough Rheumatoid Factor Complement C4 Miscellaneous Test Crossmatch 11/03/16 11/03/16 11/03/16 11:53 17:45 23:37 WBC RBC Hgb Hct MCV MCH MCHC RDW Plt Count Lymph % (Auto) [place] % (Auto) Lymph # [place] # Baso # Seg Neutrophils % Seg Neuts % (Manual) Lymphocytes % (Manual) Monocytes % (Manual) Eosinophils % (Manual) Basophils % (Manual) Nucleated RBC % Seg Neutrophils # Seg Neutrophils # Man Lymphocytes # (Manual) Monocytes # (Manual) Eosinophils # (Manual) Basophils # (Manual) PT INR Fibrinogen dRVVT Confirm Interp Factor V Activity POC ABG pH POC ABG pCO2 POC ABG pO2 ABG pO2 ABG HCO3 ABG Base Excess ABG Hemoglobin Oxyhemoglobin Sodium Potassium Chloride Carbon Dioxide BUN Creatinine Glucose POC Glucose 131 H 134 H 113 H Lactic Acid Calcium Phosphorus Magnesium Direct Bilirubin AST ALT Alkaline Phosphatase Lactate Dehydrogenase Troponin T C-Reactive Protein Total Protein Albumin Prealbumin Triglycerides Cholesterol LDL Cholesterol Direct HDL Cholesterol Urine pH Urine WBC (Auto) Urine Creatinine Urine Total Protein Fluid Total Protein Vancomycin Trough Rheumatoid Factor Complement C4 Miscellaneous Test Crossmatch 11/04/16 11/04/16 11/04/16 05:41 06:00 12:10 WBC RBC Hgb Hct MCV MCH MCHC RDW Plt Count Lymph % (Auto) [place] % (Auto) Lymph # [place] # Baso # Seg Neutrophils % Seg Neuts % (Manual) Lymphocytes % (Manual) Monocytes % (Manual) Eosinophils % (Manual) Basophils % (Manual) Nucleated RBC % Seg Neutrophils # Seg Neutrophils # Man Lymphocytes # (Manual) Monocytes # (Manual) Eosinophils # (Manual) Basophils # (Manual) PT INR Fibrinogen dRVVT Confirm Interp Factor V Activity POC ABG pH POC ABG pCO2 POC ABG pO2 ABG pO2 ABG HCO3 ABG Base Excess ABG Hemoglobin Oxyhemoglobin Sodium Potassium Chloride 96.7 L Carbon Dioxide BUN 52 H Creatinine 1.9 H Glucose 126 H POC Glucose 137 H 191 H Lactic Acid Calcium Phosphorus Magnesium Direct Bilirubin AST ALT Alkaline Phosphatase Lactate Dehydrogenase Troponin T C-Reactive Protein Total Protein Albumin Prealbumin Triglycerides Cholesterol LDL Cholesterol Direct HDL Cholesterol Urine pH Urine WBC (Auto) Urine Creatinine Urine Total Protein Fluid Total Protein Vancomycin Trough Rheumatoid Factor Complement C4 Miscellaneous Test Crossmatch 11/04/16 11/05/16 11/05/16 22:57 03:10 05:10 WBC RBC Hgb Hct MCV MCH MCHC RDW Plt Count Lymph % (Auto) [place] % (Auto) Lymph # [place] # Baso # Seg Neutrophils % Seg Neuts % (Manual) Lymphocytes % (Manual) Monocytes % (Manual) Eosinophils % (Manual) Basophils % (Manual) Nucleated RBC % Seg Neutrophils # Seg Neutrophils # Man Lymphocytes # (Manual) Monocytes # (Manual) Eosinophils # (Manual) Basophils # (Manual) PT INR Fibrinogen dRVVT Confirm Interp Factor V Activity POC ABG pH POC ABG pCO2 POC ABG pO2 ABG pO2 ABG HCO3 ABG Base Excess ABG Hemoglobin Oxyhemoglobin Sodium 136 L Potassium Chloride 97.2 L Carbon Dioxide BUN 32 H Creatinine 1.3 H Glucose 123 H POC Glucose 125 H 108 H Lactic Acid Calcium 7.8 L Phosphorus Magnesium Direct Bilirubin AST ALT Alkaline Phosphatase Lactate Dehydrogenase Troponin T C-Reactive Protein Total Protein Albumin Prealbumin Triglycerides Cholesterol LDL Cholesterol Direct HDL Cholesterol Urine pH Urine WBC (Auto) Urine Creatinine Urine Total Protein Fluid Total Protein Vancomycin Trough Rheumatoid Factor Complement C4 Miscellaneous Test Crossmatch 11/05/16 11/05/16 11/05/16 12:23 13:09 13:25 WBC RBC Hgb Hct MCV MCH MCHC RDW Plt Count Lymph % (Auto) [place] % (Auto) Lymph # [place] # Baso # Seg Neutrophils % Seg Neuts % (Manual) Lymphocytes % (Manual) Monocytes % (Manual) Eosinophils % (Manual) Basophils % (Manual) Nucleated RBC % Seg Neutrophils # Seg Neutrophils # Man Lymphocytes # (Manual) Monocytes # (Manual) Eosinophils # (Manual) Basophils # (Manual) PT INR Fibrinogen dRVVT Confirm Interp Factor V Activity POC ABG pH POC ABG pCO2 POC ABG pO2 ABG pO2 ABG HCO3 ABG Base Excess ABG Hemoglobin Oxyhemoglobin Sodium Potassium Chloride Carbon Dioxide BUN Creatinine Glucose POC Glucose 124 H Lactic Acid Calcium Phosphorus Magnesium Direct Bilirubin AST ALT Alkaline Phosphatase Lactate Dehydrogenase Troponin T C-Reactive Protein 11.40 H Total Protein Albumin Prealbumin Triglycerides Cholesterol LDL Cholesterol Direct HDL Cholesterol Urine pH 9.0 H Urine WBC (Auto) Urine Creatinine Urine Total Protein Fluid Total Protein Vancomycin Trough Rheumatoid Factor Complement C4 Miscellaneous Test Crossmatch 11/05/16 11/05/16 11/05/16 13:25 17:54 23:42 WBC RBC Hgb Hct MCV MCH MCHC RDW Plt Count Lymph % (Auto) [place] % (Auto) Lymph # [place] # Baso # Seg Neutrophils % Seg Neuts % (Manual) Lymphocytes % (Manual) Monocytes % (Manual) Eosinophils % (Manual) Basophils % (Manual) Nucleated RBC % Seg Neutrophils # Seg Neutrophils # Man Lymphocytes # (Manual) Monocytes # (Manual) Eosinophils # (Manual) Basophils # (Manual) PT INR Fibrinogen dRVVT Confirm Interp Factor V Activity POC ABG pH POC ABG pCO2 POC ABG pO2 ABG pO2 ABG HCO3 ABG Base Excess ABG Hemoglobin Oxyhemoglobin Sodium Potassium Chloride Carbon Dioxide BUN Creatinine Glucose POC Glucose 114 H 134 H Lactic Acid Calcium Phosphorus Magnesium Direct Bilirubin AST ALT Alkaline Phosphatase Lactate Dehydrogenase Troponin T C-Reactive Protein Total Protein Albumin Prealbumin Triglycerides Cholesterol LDL Cholesterol Direct HDL Cholesterol Urine pH Urine WBC (Auto) Urine Creatinine Urine Total Protein Fluid Total Protein Vancomycin Trough Rheumatoid Factor Complement C4 Miscellaneous Test Flexitest 1 H Crossmatch 11/06/16 11/06/16 11/06/16 04:56 06:25 06:25 WBC RBC 2.50 L Hgb 7.3 L Hct 22.5 L MCV MCH MCHC RDW 16.9 H Plt Count Lymph % (Auto) [place] % (Auto) 10.5 H Lymph # [place] # 1.1 H Baso # Seg Neutrophils % Seg Neuts % (Manual) Lymphocytes % (Manual) Monocytes % (Manual) Eosinophils % (Manual) Basophils % (Manual) Nucleated RBC % Seg Neutrophils # Seg Neutrophils # Man Lymphocytes # (Manual) Monocytes # (Manual) Eosinophils # (Manual) Basophils # (Manual) PT INR Fibrinogen dRVVT Confirm Interp Factor V Activity POC ABG pH POC ABG pCO2 POC ABG pO2 ABG pO2 ABG HCO3 ABG Base Excess ABG Hemoglobin Oxyhemoglobin Sodium Potassium 5.1 H Chloride 95.9 L Carbon Dioxide BUN 52 H Creatinine 1.8 H Glucose 117 H POC Glucose 120 H Lactic Acid Calcium Phosphorus Magnesium Direct Bilirubin AST 103 H ALT 77 H Alkaline Phosphatase 285 H Lactate Dehydrogenase Troponin T C-Reactive Protein Total Protein 6.2 L Albumin 1.8 L Prealbumin 0.180 L Triglycerides Cholesterol LDL Cholesterol Direct HDL Cholesterol Urine pH Urine WBC (Auto) Urine Creatinine Urine Total Protein Fluid Total Protein Vancomycin Trough Rheumatoid Factor Complement C4 Miscellaneous Test Crossmatch 11/06/16 11/06/16 11/06/16 11:56 17:14 23:52 WBC RBC Hgb Hct MCV MCH MCHC RDW Plt Count Lymph % (Auto) [place] % (Auto) Lymph # [place] # Baso # Seg Neutrophils % Seg Neuts % (Manual) Lymphocytes % (Manual) Monocytes % (Manual) Eosinophils % (Manual) Basophils % (Manual) Nucleated RBC % Seg Neutrophils # Seg Neutrophils # Man Lymphocytes # (Manual) Monocytes # (Manual) Eosinophils # (Manual) Basophils # (Manual) PT INR Fibrinogen dRVVT Confirm Interp Factor V Activity POC ABG pH POC ABG pCO2 POC ABG pO2 ABG pO2 ABG HCO3 ABG Base Excess ABG Hemoglobin Oxyhemoglobin Sodium Potassium Chloride Carbon Dioxide BUN Creatinine Glucose POC Glucose 141 H 125 H 130 H Lactic Acid Calcium Phosphorus Magnesium Direct Bilirubin AST ALT Alkaline Phosphatase Lactate Dehydrogenase Troponin T C-Reactive Protein Total Protein Albumin Prealbumin Triglycerides Cholesterol LDL Cholesterol Direct HDL Cholesterol Urine pH Urine WBC (Auto) Urine Creatinine Urine Total Protein Fluid Total Protein Vancomycin Trough Rheumatoid Factor Complement C4 Miscellaneous Test Crossmatch 11/07/16 11/07/16 11/07/16 06:30 06:30 09:37 WBC RBC 2.18 L Hgb 6.3 L Hct 19.7 L* MCV MCH MCHC RDW 16.8 H Plt Count Lymph % (Auto) [place] % (Auto) 10.0 H Lymph # [place] # 1.0 H Baso # Seg Neutrophils % Seg Neuts % (Manual) Lymphocytes % (Manual) Monocytes % (Manual) Eosinophils % (Manual) Basophils % (Manual) Nucleated RBC % Seg Neutrophils # Seg Neutrophils # Man Lymphocytes # (Manual) Monocytes # (Manual) Eosinophils # (Manual) Basophils # (Manual) PT INR Fibrinogen dRVVT Confirm Interp Factor V Activity POC ABG pH POC ABG pCO2 POC ABG pO2 ABG pO2 ABG HCO3 ABG Base Excess ABG Hemoglobin Oxyhemoglobin Sodium 135 L Potassium Chloride 95.6 L Carbon Dioxide BUN 70 H Creatinine 2.0 H Glucose 126 H POC Glucose Lactic Acid Calcium Phosphorus Magnesium Direct Bilirubin AST ALT Alkaline Phosphatase Lactate Dehydrogenase Troponin T C-Reactive Protein Total Protein Albumin Prealbumin Triglycerides Cholesterol LDL Cholesterol Direct HDL Cholesterol Urine pH Urine WBC (Auto) Urine Creatinine Urine Total Protein Fluid Total Protein Vancomycin Trough Rheumatoid Factor Complement C4 Miscellaneous Test Crossmatch See Detail 11/07/16 11/07/16 11/07/16 12:52 18:51 21:26 WBC RBC Hgb Hct MCV MCH MCHC RDW Plt Count Lymph % (Auto) [place] % (Auto) Lymph # [place] # Baso # Seg Neutrophils % Seg Neuts % (Manual) Lymphocytes % (Manual) Monocytes % (Manual) Eosinophils % (Manual) Basophils % (Manual) Nucleated RBC % Seg Neutrophils # Seg Neutrophils # Man Lymphocytes # (Manual) Monocytes # (Manual) Eosinophils # (Manual) Basophils # (Manual) PT INR Fibrinogen dRVVT Confirm Interp Factor V Activity POC ABG pH 7.523 H POC ABG pCO2 34.6 L POC ABG pO2 53 L ABG pO2 ABG HCO3 ABG Base Excess ABG Hemoglobin Oxyhemoglobin Sodium Potassium Chloride Carbon Dioxide BUN Creatinine Glucose POC Glucose 142 H 155 H Lactic Acid Calcium Phosphorus Magnesium Direct Bilirubin AST ALT Alkaline Phosphatase Lactate Dehydrogenase Troponin T C-Reactive Protein Total Protein Albumin Prealbumin Triglycerides Cholesterol LDL Cholesterol Direct HDL Cholesterol Urine pH Urine WBC (Auto) Urine Creatinine Urine Total Protein Fluid Total Protein Vancomycin Trough Rheumatoid Factor Complement C4 Miscellaneous Test Crossmatch 11/07/16 11/08/16 11/08/16 21:34 13:03 23:37 WBC RBC 2.63 L Hgb 7.7 L Hct 22.7 L MCV MCH MCHC RDW 17.0 H Plt Count Lymph % (Auto) [place] % (Auto) Lymph # [place] # Baso # Seg Neutrophils % Seg Neuts % (Manual) Lymphocytes % (Manual) Monocytes % (Manual) Eosinophils % (Manual) Basophils % (Manual) Nucleated RBC % Seg Neutrophils # Seg Neutrophils # Man Lymphocytes # (Manual) Monocytes # (Manual) Eosinophils # (Manual) Basophils # (Manual) PT INR Fibrinogen dRVVT Confirm Interp Factor V Activity POC ABG pH 7.478 H POC ABG pCO2 34.0 L POC ABG pO2 50 L ABG pO2 ABG HCO3 ABG Base Excess ABG Hemoglobin Oxyhemoglobin Sodium Potassium Chloride Carbon Dioxide BUN Creatinine Glucose POC Glucose 113 H Lactic Acid Calcium Phosphorus Magnesium Direct Bilirubin AST ALT Alkaline Phosphatase Lactate Dehydrogenase Troponin T C-Reactive Protein Total Protein Albumin Prealbumin Triglycerides Cholesterol LDL Cholesterol Direct HDL Cholesterol Urine pH Urine WBC (Auto) Urine Creatinine Urine Total Protein Fluid Total Protein Vancomycin Trough Rheumatoid Factor Complement C4 Miscellaneous Test Crossmatch 11/09/16 11/09/16 11/09/16 04:35 10:15 18:21 WBC RBC 2.68 L Hgb 7.8 L Hct 23.3 L MCV MCH MCHC RDW 17.0 H Plt Count Lymph % (Auto) [place] % (Auto) 12.1 H Lymph # [place] # 1.1 H Baso # Seg Neutrophils % Seg Neuts % (Manual) Lymphocytes % (Manual) Monocytes % (Manual) Eosinophils % (Manual) Basophils % (Manual) Nucleated RBC % Seg Neutrophils # Seg Neutrophils # Man Lymphocytes # (Manual) Monocytes # (Manual) Eosinophils # (Manual) Basophils # (Manual) PT INR Fibrinogen dRVVT Confirm Interp Factor V Activity POC ABG pH POC ABG pCO2 POC ABG pO2 ABG pO2 ABG HCO3 ABG Base Excess ABG Hemoglobin Oxyhemoglobin Sodium Potassium Chloride Carbon Dioxide BUN 51 H Creatinine 1.8 H Glucose POC Glucose 60 L Lactic Acid Calcium 8.3 L Phosphorus Magnesium Direct Bilirubin AST ALT Alkaline Phosphatase Lactate Dehydrogenase Troponin T C-Reactive Protein Total Protein Albumin Prealbumin Triglycerides Cholesterol LDL Cholesterol Direct HDL Cholesterol Urine pH Urine WBC (Auto) Urine Creatinine Urine Total Protein Fluid Total Protein Vancomycin Trough Rheumatoid Factor Complement C4 Miscellaneous Test Crossmatch 11/09/16 11/10/16 11/10/16 18:55 07:00 11:51 WBC RBC Hgb Hct MCV MCH MCHC RDW Plt Count Lymph % (Auto) [place] % (Auto) Lymph # [place] # Baso # Seg Neutrophils % Seg Neuts % (Manual) Lymphocytes % (Manual) Monocytes % (Manual) Eosinophils % (Manual) Basophils % (Manual) Nucleated RBC % Seg Neutrophils # Seg Neutrophils # Man Lymphocytes # (Manual) Monocytes # (Manual) Eosinophils # (Manual) Basophils # (Manual) PT INR Fibrinogen dRVVT Confirm Interp Factor V Activity POC ABG pH POC ABG pCO2 POC ABG pO2 ABG pO2 ABG HCO3 ABG Base Excess ABG Hemoglobin Oxyhemoglobin Sodium Potassium 3.0 L D Chloride 97.4 L Carbon Dioxide BUN 28 H Creatinine 1.3 H Glucose POC Glucose 68 L 120 H Lactic Acid Calcium 7.8 L Phosphorus Magnesium Direct Bilirubin AST ALT Alkaline Phosphatase Lactate Dehydrogenase Troponin T C-Reactive Protein Total Protein Albumin Prealbumin Triglycerides Cholesterol LDL Cholesterol Direct HDL Cholesterol Urine pH Urine WBC (Auto) Urine Creatinine Urine Total Protein Fluid Total Protein Vancomycin Trough Rheumatoid Factor Complement C4 Miscellaneous Test Crossmatch 11/10/16 11/11/16 11/11/16 14:20 06:59 06:59 WBC RBC 2.81 L Hgb 8.1 L Hct 24.4 L MCV MCH MCHC RDW 16.4 H Plt Count Lymph % (Auto) [place] % (Auto) 10.8 H Lymph # [place] # 1.0 H Baso # Seg Neutrophils % Seg Neuts % (Manual) Lymphocytes % (Manual) Monocytes % (Manual) Eosinophils % (Manual) Basophils % (Manual) Nucleated RBC % Seg Neutrophils # Seg Neutrophils # Man Lymphocytes # (Manual) Monocytes # (Manual) Eosinophils # (Manual) Basophils # (Manual) PT INR Fibrinogen dRVVT Confirm Interp Factor V Activity POC ABG pH POC ABG pCO2 POC ABG pO2 ABG pO2 ABG HCO3 ABG Base Excess ABG Hemoglobin Oxyhemoglobin Sodium Potassium Chloride Carbon Dioxide BUN Creatinine Glucose POC Glucose Lactic Acid Calcium Phosphorus Magnesium Direct Bilirubin AST ALT Alkaline Phosphatase Lactate Dehydrogenase 196 H Troponin T C-Reactive Protein Total Protein 6.1 L Albumin Prealbumin Triglycerides Cholesterol LDL Cholesterol Direct HDL Cholesterol Urine pH Urine WBC (Auto) Urine Creatinine Urine Total Protein Fluid Total Protein < 3.0 L Vancomycin Trough Rheumatoid Factor Complement C4 Miscellaneous Test Crossmatch 11/11/16 11/11/16 11/12/16 06:59 09:50 04:00 WBC RBC Hgb Hct MCV MCH MCHC RDW Plt Count Lymph % (Auto) [place] % (Auto) Lymph # [place] # Baso # Seg Neutrophils % Seg Neuts % (Manual) Lymphocytes % (Manual) Monocytes % (Manual) Eosinophils % (Manual) Basophils % (Manual) Nucleated RBC % Seg Neutrophils # Seg Neutrophils # Man Lymphocytes # (Manual) Monocytes # (Manual) Eosinophils # (Manual) Basophils # (Manual) PT INR 1.18 H Fibrinogen dRVVT Confirm Interp Factor V Activity POC ABG pH POC ABG pCO2 POC ABG pO2 ABG pO2 ABG HCO3 ABG Base Excess ABG Hemoglobin Oxyhemoglobin Sodium 136 L 133 L Potassium Chloride 96.1 L 94.8 L Carbon Dioxide 21 L BUN 37 H 42 H Creatinine 1.8 H 2.0 H Glucose POC Glucose Lactic Acid Calcium Phosphorus Magnesium Direct Bilirubin AST ALT Alkaline Phosphatase Lactate Dehydrogenase Troponin T C-Reactive Protein Total Protein Albumin Prealbumin Triglycerides Cholesterol LDL Cholesterol Direct HDL Cholesterol Urine pH Urine WBC (Auto) Urine Creatinine Urine Total Protein Fluid Total Protein Vancomycin Trough Rheumatoid Factor Complement C4 Miscellaneous Test Crossmatch 11/12/16 11/12/16 11/13/16 04:00 23:55 05:53 WBC RBC Hgb 8.9 L Hct 27.2 L MCV MCH MCHC RDW Plt Count Lymph % (Auto) [place] % (Auto) Lymph # [place] # Baso # Seg Neutrophils % Seg Neuts % (Manual) Lymphocytes % (Manual) Monocytes % (Manual) Eosinophils % (Manual) Basophils % (Manual) Nucleated RBC % Seg Neutrophils # Seg Neutrophils # Man Lymphocytes # (Manual) Monocytes # (Manual) Eosinophils # (Manual) Basophils # (Manual) PT INR Fibrinogen dRVVT Confirm Interp Factor V Activity POC ABG pH POC ABG pCO2 POC ABG pO2 ABG pO2 ABG HCO3 ABG Base Excess ABG Hemoglobin Oxyhemoglobin Sodium Potassium Chloride Carbon Dioxide BUN Creatinine Glucose POC Glucose 132 H 120 H Lactic Acid Calcium Phosphorus Magnesium Direct Bilirubin AST ALT Alkaline Phosphatase Lactate Dehydrogenase Troponin T C-Reactive Protein Total Protein Albumin Prealbumin Triglycerides Cholesterol LDL Cholesterol Direct HDL Cholesterol Urine pH Urine WBC (Auto) Urine Creatinine Urine Total Protein Fluid Total Protein Vancomycin Trough Rheumatoid Factor Complement C4 Miscellaneous Test Crossmatch 11/13/16 11/13/16 11/13/16 11:43 17:09 23:41 WBC RBC Hgb Hct MCV MCH MCHC RDW Plt Count Lymph % (Auto) [place] % (Auto) Lymph # [place] # Baso # Seg Neutrophils % Seg Neuts % (Manual) Lymphocytes % (Manual) Monocytes % (Manual) Eosinophils % (Manual) Basophils % (Manual) Nucleated RBC % Seg Neutrophils # Seg Neutrophils # Man Lymphocytes # (Manual) Monocytes # (Manual) Eosinophils # (Manual) Basophils # (Manual) PT INR Fibrinogen dRVVT Confirm Interp Factor V Activity POC ABG pH POC ABG pCO2 POC ABG pO2 ABG pO2 ABG HCO3 ABG Base Excess ABG Hemoglobin Oxyhemoglobin Sodium Potassium Chloride Carbon Dioxide BUN Creatinine Glucose POC Glucose 114 H 113 H 108 H Lactic Acid Calcium Phosphorus Magnesium Direct Bilirubin AST ALT Alkaline Phosphatase Lactate Dehydrogenase Troponin T C-Reactive Protein Total Protein Albumin Prealbumin Triglycerides Cholesterol LDL Cholesterol Direct HDL Cholesterol Urine pH Urine WBC (Auto) Urine Creatinine Urine Total Protein Fluid Total Protein Vancomycin Trough Rheumatoid Factor Complement C4 Miscellaneous Test Crossmatch 11/13/16 11/15/16 11/15/16 Unknown 00:37 03:30 WBC 11.2 H RBC 2.72 L Hgb 7.6 L Hct 23.4 L MCV MCH MCHC RDW 16.5 H Plt Count Lymph % (Auto) [place] % (Auto) Lymph # [place] # Baso # Seg Neutrophils % Seg Neuts % (Manual) Lymphocytes % (Manual) Monocytes % (Manual) Eosinophils % (Manual) Basophils % (Manual) Nucleated RBC % Seg Neutrophils # Seg Neutrophils # Man Lymphocytes # (Manual) Monocytes # (Manual) Eosinophils # (Manual) Basophils # (Manual) PT INR Fibrinogen dRVVT Confirm Interp Factor V Activity POC ABG pH POC ABG pCO2 POC ABG pO2 ABG pO2 ABG HCO3 ABG Base Excess ABG Hemoglobin Oxyhemoglobin Sodium 135 L Potassium Chloride 95.2 L Carbon Dioxide BUN 52 H Creatinine 2.2 H Glucose POC Glucose 108 H Lactic Acid Calcium Phosphorus Magnesium Direct Bilirubin AST ALT Alkaline Phosphatase Lactate Dehydrogenase Troponin T C-Reactive Protein Total Protein Albumin Prealbumin Triglycerides Cholesterol LDL Cholesterol Direct HDL Cholesterol Urine pH Urine WBC (Auto) Urine Creatinine Urine Total Protein Fluid Total Protein Vancomycin Trough Rheumatoid Factor Complement C4 Miscellaneous Test Crossmatch 11/15/16 11/15/16 11/15/16 03:30 05:04 11:50 WBC RBC Hgb Hct MCV MCH MCHC RDW Plt Count Lymph % (Auto) [place] % (Auto) Lymph # [place] # Baso # Seg Neutrophils % Seg Neuts % (Manual) Lymphocytes % (Manual) Monocytes % (Manual) Eosinophils % (Manual) Basophils % (Manual) Nucleated RBC % Seg Neutrophils # Seg Neutrophils # Man Lymphocytes # (Manual) Monocytes # (Manual) Eosinophils # (Manual) Basophils # (Manual) PT INR Fibrinogen dRVVT Confirm Interp Factor V Activity POC ABG pH POC ABG pCO2 POC ABG pO2 ABG pO2 ABG HCO3 ABG Base Excess ABG Hemoglobin Oxyhemoglobin Sodium Potassium 3.4 L Chloride Carbon Dioxide BUN 25 H Creatinine 1.5 H Glucose 103 H POC Glucose 121 H 144 H Lactic Acid Calcium Phosphorus Magnesium Direct Bilirubin AST ALT Alkaline Phosphatase Lactate Dehydrogenase Troponin T C-Reactive Protein Total Protein Albumin Prealbumin Triglycerides Cholesterol LDL Cholesterol Direct HDL Cholesterol Urine pH Urine WBC (Auto) Urine Creatinine Urine Total Protein Fluid Total Protein Vancomycin Trough Rheumatoid Factor Complement C4 Miscellaneous Test Crossmatch 11/15/16 11/15/16 11/16/16 21:28 23:20 11:44 WBC RBC Hgb Hct MCV MCH MCHC RDW Plt Count Lymph % (Auto) [place] % (Auto) Lymph # [place] # Baso # Seg Neutrophils % Seg Neuts % (Manual) Lymphocytes % (Manual) Monocytes % (Manual) Eosinophils % (Manual) Basophils % (Manual) Nucleated RBC % Seg Neutrophils # Seg Neutrophils # Man Lymphocytes # (Manual) Monocytes # (Manual) Eosinophils # (Manual) Basophils # (Manual) PT INR Fibrinogen dRVVT Confirm Interp Factor V Activity POC ABG pH 7.462 H POC ABG pCO2 POC ABG pO2 71 L ABG pO2 ABG HCO3 ABG Base Excess ABG Hemoglobin Oxyhemoglobin Sodium Potassium Chloride Carbon Dioxide BUN Creatinine Glucose POC Glucose 116 H 133 H Lactic Acid Calcium Phosphorus Magnesium Direct Bilirubin AST ALT Alkaline Phosphatase Lactate Dehydrogenase Troponin T C-Reactive Protein Total Protein Albumin Prealbumin Triglycerides Cholesterol LDL Cholesterol Direct HDL Cholesterol Urine pH Urine WBC (Auto) Urine Creatinine Urine Total Protein Fluid Total Protein Vancomycin Trough Rheumatoid Factor Complement C4 Miscellaneous Test Crossmatch 11/16/16 11/16/16 11/16/16 12:20 17:05 23:35 WBC 11.7 H RBC 2.73 L Hgb 7.6 L Hct 23.7 L MCV MCH MCHC RDW 16.6 H Plt Count Lymph % (Auto) [place] % (Auto) Lymph # [place] # Baso # Seg Neutrophils % Seg Neuts % (Manual) Lymphocytes % (Manual) Monocytes % (Manual) Eosinophils % (Manual) Basophils % (Manual) Nucleated RBC % Seg Neutrophils # Seg Neutrophils # Man Lymphocytes # (Manual) Monocytes # (Manual) Eosinophils # (Manual) Basophils # (Manual) PT INR Fibrinogen dRVVT Confirm Interp Factor V Activity POC ABG pH POC ABG pCO2 POC ABG pO2 ABG pO2 ABG HCO3 ABG Base Excess ABG Hemoglobin Oxyhemoglobin Sodium Potassium Chloride Carbon Dioxide BUN Creatinine Glucose POC Glucose 154 H 125 H Lactic Acid Calcium Phosphorus Magnesium Direct Bilirubin AST ALT Alkaline Phosphatase Lactate Dehydrogenase Troponin T C-Reactive Protein Total Protein Albumin Prealbumin Triglycerides Cholesterol LDL Cholesterol Direct HDL Cholesterol Urine pH Urine WBC (Auto) Urine Creatinine Urine Total Protein Fluid Total Protein Vancomycin Trough Rheumatoid Factor Complement C4 Miscellaneous Test Crossmatch 11/17/16 11/17/16 11/17/16 03:20 03:20 03:20 WBC RBC 2.55 L Hgb 7.3 L Hct 21.9 L MCV MCH MCHC RDW 16.6 H Plt Count Lymph % (Auto) [place] % (Auto) 11.5 H Lymph # [place] # 1.1 H Baso # Seg Neutrophils % Seg Neuts % (Manual) Lymphocytes % (Manual) Monocytes % (Manual) Eosinophils % (Manual) Basophils % (Manual) Nucleated RBC % Seg Neutrophils # Seg Neutrophils # Man Lymphocytes # (Manual) Monocytes # (Manual) Eosinophils # (Manual) Basophils # (Manual) PT 16.8 H INR 1.37 H Fibrinogen dRVVT Confirm Interp Factor V Activity POC ABG pH POC ABG pCO2 POC ABG pO2 ABG pO2 ABG HCO3 ABG Base Excess ABG Hemoglobin Oxyhemoglobin Sodium Potassium 3.5 L Chloride Carbon Dioxide BUN 21 H Creatinine Glucose POC Glucose Lactic Acid Calcium 7.9 L Phosphorus Magnesium Direct Bilirubin AST ALT Alkaline Phosphatase Lactate Dehydrogenase Troponin T C-Reactive Protein Total Protein Albumin Prealbumin Triglycerides Cholesterol LDL Cholesterol Direct HDL Cholesterol Urine pH Urine WBC (Auto) Urine Creatinine Urine Total Protein Fluid Total Protein Vancomycin Trough Rheumatoid Factor Complement C4 Miscellaneous Test Crossmatch 11/17/16 11/17/16 11/17/16 06:34 11:21 21:22 WBC RBC Hgb Hct MCV MCH MCHC RDW Plt Count Lymph % (Auto) [place] % (Auto) Lymph # [place] # Baso # Seg Neutrophils % Seg Neuts % (Manual) Lymphocytes % (Manual) Monocytes % (Manual) Eosinophils % (Manual) Basophils % (Manual) Nucleated RBC % Seg Neutrophils # Seg Neutrophils # Man Lymphocytes # (Manual) Monocytes # (Manual) Eosinophils # (Manual) Basophils # (Manual) PT INR Fibrinogen dRVVT Confirm Interp Factor V Activity POC ABG pH 7.467 H POC ABG pCO2 POC ABG pO2 73 L ABG pO2 ABG HCO3 ABG Base Excess ABG Hemoglobin Oxyhemoglobin Sodium Potassium Chloride Carbon Dioxide BUN Creatinine Glucose POC Glucose 121 H 119 H Lactic Acid Calcium Phosphorus Magnesium Direct Bilirubin AST ALT Alkaline Phosphatase Lactate Dehydrogenase Troponin T C-Reactive Protein Total Protein Albumin Prealbumin Triglycerides Cholesterol LDL Cholesterol Direct HDL Cholesterol Urine pH Urine WBC (Auto) Urine Creatinine Urine Total Protein Fluid Total Protein Vancomycin Trough Rheumatoid Factor Complement C4 Miscellaneous Test Crossmatch 11/18/16 11/18/16 11/19/16 12:16 17:19 00:00 WBC RBC Hgb Hct MCV MCH MCHC RDW Plt Count Lymph % (Auto) [place] % (Auto) Lymph # [place] # Baso # Seg Neutrophils % Seg Neuts % (Manual) Lymphocytes % (Manual) Monocytes % (Manual) Eosinophils % (Manual) Basophils % (Manual) Nucleated RBC % Seg Neutrophils # Seg Neutrophils # Man Lymphocytes # (Manual) Monocytes # (Manual) Eosinophils # (Manual) Basophils # (Manual) PT INR Fibrinogen dRVVT Confirm Interp Factor V Activity POC ABG pH POC ABG pCO2 POC ABG pO2 ABG pO2 ABG HCO3 ABG Base Excess ABG Hemoglobin Oxyhemoglobin Sodium Potassium Chloride Carbon Dioxide BUN Creatinine Glucose POC Glucose 124 H 162 H 139 H Lactic Acid Calcium Phosphorus Magnesium Direct Bilirubin AST ALT Alkaline Phosphatase Lactate Dehydrogenase Troponin T C-Reactive Protein Total Protein Albumin Prealbumin Triglycerides Cholesterol LDL Cholesterol Direct HDL Cholesterol Urine pH Urine WBC (Auto) Urine Creatinine Urine Total Protein Fluid Total Protein Vancomycin Trough Rheumatoid Factor Complement C4 Miscellaneous Test Crossmatch 11/19/16 11/19/16 11/20/16 05:00 12:43 00:40 WBC RBC Hgb Hct MCV MCH MCHC RDW Plt Count Lymph % (Auto) [place] % (Auto) Lymph # [place] # Baso # Seg Neutrophils % Seg Neuts % (Manual) Lymphocytes % (Manual) Monocytes % (Manual) Eosinophils % (Manual) Basophils % (Manual) Nucleated RBC % Seg Neutrophils # Seg Neutrophils # Man Lymphocytes # (Manual) Monocytes # (Manual) Eosinophils # (Manual) Basophils # (Manual) PT INR Fibrinogen dRVVT Confirm Interp Factor V Activity POC ABG pH POC ABG pCO2 POC ABG pO2 ABG pO2 ABG HCO3 ABG Base Excess ABG Hemoglobin Oxyhemoglobin Sodium Potassium Chloride Carbon Dioxide BUN Creatinine Glucose POC Glucose 110 H 125 H 136 H Lactic Acid Calcium Phosphorus Magnesium Direct Bilirubin AST ALT Alkaline Phosphatase Lactate Dehydrogenase Troponin T C-Reactive Protein Total Protein Albumin Prealbumin Triglycerides Cholesterol LDL Cholesterol Direct HDL Cholesterol Urine pH Urine WBC (Auto) Urine Creatinine Urine Total Protein Fluid Total Protein Vancomycin Trough Rheumatoid Factor Complement C4 Miscellaneous Test Crossmatch 11/20/16 11/20/16 11/20/16 05:00 05:00 05:51 WBC 13.1 H RBC 2.74 L Hgb 7.7 L Hct 23.6 L MCV MCH MCHC RDW 16.9 H Plt Count Lymph % (Auto) [place] % (Auto) 10.8 H Lymph # [place] # 1.4 H Baso # Seg Neutrophils % Seg Neuts % (Manual) Lymphocytes % (Manual) Monocytes % (Manual) Eosinophils % (Manual) Basophils % (Manual) Nucleated RBC % Seg Neutrophils # 7.9 H Seg Neutrophils # Man Lymphocytes # (Manual) Monocytes # (Manual) Eosinophils # (Manual) Basophils # (Manual) PT INR Fibrinogen dRVVT Confirm Interp Factor V Activity POC ABG pH POC ABG pCO2 POC ABG pO2 ABG pO2 ABG HCO3 ABG Base Excess ABG Hemoglobin Oxyhemoglobin Sodium Potassium Chloride Carbon Dioxide BUN 31 H Creatinine 1.8 H Glucose 129 H POC Glucose 133 H Lactic Acid Calcium Phosphorus Magnesium Direct Bilirubin AST ALT Alkaline Phosphatase Lactate Dehydrogenase Troponin T C-Reactive Protein Total Protein Albumin Prealbumin Triglycerides Cholesterol LDL Cholesterol Direct HDL Cholesterol Urine pH Urine WBC (Auto) Urine Creatinine Urine Total Protein Fluid Total Protein Vancomycin Trough Rheumatoid Factor Complement C4 Miscellaneous Test Crossmatch 11/20/16 11/20/16 11/21/16 12:40 18:10 01:20 WBC RBC Hgb Hct MCV MCH MCHC RDW Plt Count Lymph % (Auto) [place] % (Auto) Lymph # [place] # Baso # Seg Neutrophils % Seg Neuts % (Manual) Lymphocytes % (Manual) Monocytes % (Manual) Eosinophils % (Manual) Basophils % (Manual) Nucleated RBC % Seg Neutrophils # Seg Neutrophils # Man Lymphocytes # (Manual) Monocytes # (Manual) Eosinophils # (Manual) Basophils # (Manual) PT INR Fibrinogen dRVVT Confirm Interp Factor V Activity POC ABG pH POC ABG pCO2 POC ABG pO2 ABG pO2 ABG HCO3 ABG Base Excess ABG Hemoglobin Oxyhemoglobin Sodium Potassium Chloride Carbon Dioxide BUN Creatinine Glucose POC Glucose 134 H 138 H 136 H Lactic Acid Calcium Phosphorus Magnesium Direct Bilirubin AST ALT Alkaline Phosphatase Lactate Dehydrogenase Troponin T C-Reactive Protein Total Protein Albumin Prealbumin Triglycerides Cholesterol LDL Cholesterol Direct HDL Cholesterol Urine pH Urine WBC (Auto) Urine Creatinine Urine Total Protein Fluid Total Protein Vancomycin Trough Rheumatoid Factor Complement C4 Miscellaneous Test Crossmatch 11/21/16 11/21/16 11/21/16 07:04 07:45 07:45 WBC 22.0 H RBC 2.91 L Hgb 8.2 L Hct 25.4 L MCV MCH MCHC RDW 17.1 H Plt Count Lymph % (Auto) [place] % (Auto) Lymph # [place] # Baso # Seg Neutrophils % Seg Neuts % (Manual) Lymphocytes % (Manual) 8.0 L Monocytes % (Manual) Eosinophils % (Manual) Basophils % (Manual) Nucleated RBC % Seg Neutrophils # Seg Neutrophils # Man 14.7 H Lymphocytes # (Manual) Monocytes # (Manual) 1.1 H Eosinophils # (Manual) Basophils # (Manual) PT INR Fibrinogen dRVVT Confirm Interp Factor V Activity POC ABG pH POC ABG pCO2 POC ABG pO2 ABG pO2 ABG HCO3 ABG Base Excess ABG Hemoglobin Oxyhemoglobin Sodium Potassium Chloride Carbon Dioxide BUN 42 H Creatinine 2.0 H Glucose POC Glucose 108 H Lactic Acid Calcium Phosphorus Magnesium Direct Bilirubin AST ALT Alkaline Phosphatase Lactate Dehydrogenase Troponin T C-Reactive Protein Total Protein Albumin Prealbumin Triglycerides Cholesterol LDL Cholesterol Direct HDL Cholesterol Urine pH Urine WBC (Auto) Urine Creatinine Urine Total Protein Fluid Total Protein Vancomycin Trough Rheumatoid Factor Complement C4 Miscellaneous Test Crossmatch 11/21/16 11/21/16 11/21/16 08:38 10:09 11:20 WBC RBC Hgb Hct MCV MCH MCHC RDW Plt Count Lymph % (Auto) [place] % (Auto) Lymph # [place] # Baso # Seg Neutrophils % Seg Neuts % (Manual) Lymphocytes % (Manual) Monocytes % (Manual) Eosinophils % (Manual) Basophils % (Manual) Nucleated RBC % Seg Neutrophils # Seg Neutrophils # Man Lymphocytes # (Manual) Monocytes # (Manual) Eosinophils # (Manual) Basophils # (Manual) PT INR Fibrinogen dRVVT Confirm Interp Factor V Activity POC ABG pH 7.346 L POC ABG pCO2 34.4 L POC ABG pO2 314 H ABG pO2 ABG HCO3 ABG Base Excess ABG Hemoglobin Oxyhemoglobin Sodium Potassium Chloride Carbon Dioxide BUN Creatinine Glucose POC Glucose 195 H 153 H Lactic Acid Calcium Phosphorus Magnesium Direct Bilirubin AST ALT Alkaline Phosphatase Lactate Dehydrogenase Troponin T C-Reactive Protein Total Protein Albumin Prealbumin Triglycerides Cholesterol LDL Cholesterol Direct HDL Cholesterol Urine pH Urine WBC (Auto) Urine Creatinine Urine Total Protein Fluid Total Protein Vancomycin Trough Rheumatoid Factor Complement C4 Miscellaneous Test Crossmatch 11/21/16 11/22/16 11/22/16 23:37 04:48 05:00 WBC 29.7 H RBC 2.73 L Hgb 7.5 L Hct 24.2 L MCV MCH 27 L MCHC RDW 17.4 H Plt Count Lymph % (Auto) [place] % (Auto) Lymph # [place] # Baso # Seg Neutrophils % Seg Neuts % (Manual) Lymphocytes % (Manual) 7.0 L Monocytes % (Manual) Eosinophils % (Manual) Basophils % (Manual) Nucleated RBC % Seg Neutrophils # Seg Neutrophils # Man 15.4 H Lymphocytes # (Manual) Monocytes # (Manual) Eosinophils # (Manual) Basophils # (Manual) PT INR Fibrinogen dRVVT Confirm Interp Factor V Activity POC ABG pH POC ABG pCO2 24.6 L POC ABG pO2 189 H ABG pO2 ABG HCO3 ABG Base Excess ABG Hemoglobin Oxyhemoglobin Sodium Potassium Chloride Carbon Dioxide BUN Creatinine Glucose POC Glucose 65 L Lactic Acid Calcium Phosphorus Magnesium Direct Bilirubin AST ALT Alkaline Phosphatase Lactate Dehydrogenase Troponin T C-Reactive Protein Total Protein Albumin Prealbumin Triglycerides Cholesterol LDL Cholesterol Direct HDL Cholesterol Urine pH Urine WBC (Auto) Urine Creatinine Urine Total Protein Fluid Total Protein Vancomycin Trough Rheumatoid Factor Complement C4 Miscellaneous Test Crossmatch 11/22/16 11/23/16 11/23/16 05:00 03:44 04:06 WBC RBC 2.52 L Hgb 7.2 L Hct 21.5 L MCV MCH MCHC RDW 17.1 H Plt Count Lymph % (Auto) [place] % (Auto) 12.4 H Lymph # [place] # 1.4 H Baso # Seg Neutrophils % Seg Neuts % (Manual) Lymphocytes % (Manual) Monocytes % (Manual) Eosinophils % (Manual) Basophils % (Manual) Nucleated RBC % Seg Neutrophils # Seg Neutrophils # Man Lymphocytes # (Manual) Monocytes # (Manual) Eosinophils # (Manual) Basophils # (Manual) PT INR Fibrinogen dRVVT Confirm Interp Factor V Activity POC ABG pH 7.493 H POC ABG pCO2 29.5 L POC ABG pO2 49 L ABG pO2 ABG HCO3 ABG Base Excess ABG Hemoglobin Oxyhemoglobin Sodium 134 L Potassium Chloride 95.9 L Carbon Dioxide 14 L D BUN 51 H Creatinine 2.6 H Glucose POC Glucose Lactic Acid Calcium Phosphorus Magnesium Direct Bilirubin AST ALT Alkaline Phosphatase Lactate Dehydrogenase Troponin T C-Reactive Protein Total Protein Albumin Prealbumin Triglycerides Cholesterol LDL Cholesterol Direct HDL Cholesterol Urine pH Urine WBC (Auto) Urine Creatinine Urine Total Protein Fluid Total Protein Vancomycin Trough Rheumatoid Factor Complement C4 Miscellaneous Test Crossmatch 11/23/16 11/23/16 11/24/16 04:06 11:29 06:39 WBC RBC Hgb Hct MCV MCH MCHC RDW Plt Count Lymph % (Auto) [place] % (Auto) Lymph # [place] # Baso # Seg Neutrophils % Seg Neuts % (Manual) Lymphocytes % (Manual) Monocytes % (Manual) Eosinophils % (Manual) Basophils % (Manual) Nucleated RBC % Seg Neutrophils # Seg Neutrophils # Man Lymphocytes # (Manual) Monocytes # (Manual) Eosinophils # (Manual) Basophils # (Manual) PT INR Fibrinogen dRVVT Confirm Interp Factor V Activity POC ABG pH POC ABG pCO2 POC ABG pO2 ABG pO2 ABG HCO3 ABG Base Excess ABG Hemoglobin Oxyhemoglobin Sodium 136 L Potassium Chloride 95.2 L Carbon Dioxide BUN 60 H Creatinine 2.9 H Glucose POC Glucose 69 L 305 H Lactic Acid Calcium Phosphorus Magnesium 1.60 L Direct Bilirubin AST ALT Alkaline Phosphatase Lactate Dehydrogenase Troponin T C-Reactive Protein Total Protein Albumin Prealbumin Triglycerides Cholesterol LDL Cholesterol Direct HDL Cholesterol Urine pH Urine WBC (Auto) Urine Creatinine Urine Total Protein Fluid Total Protein Vancomycin Trough Rheumatoid Factor Complement C4 Miscellaneous Test Crossmatch 11/24/16 11/24/16 11/24/16 06:43 08:08 08:08 WBC 11.2 H RBC 2.47 L Hgb 6.8 L Hct 20.6 L MCV MCH MCHC RDW 17.0 H Plt Count Lymph % (Auto) [place] % (Auto) 10.3 H Lymph # [place] # 1.2 H Baso # Seg Neutrophils % Seg Neuts % (Manual) Lymphocytes % (Manual) Monocytes % (Manual) Eosinophils % (Manual) Basophils % (Manual) Nucleated RBC % Seg Neutrophils # Seg Neutrophils # Man Lymphocytes # (Manual) Monocytes # (Manual) Eosinophils # (Manual) Basophils # (Manual) PT INR Fibrinogen dRVVT Confirm Interp Factor V Activity POC ABG pH POC ABG pCO2 POC ABG pO2 ABG pO2 ABG HCO3 ABG Base Excess ABG Hemoglobin Oxyhemoglobin Sodium 135 L Potassium Chloride 96.3 L Carbon Dioxide BUN 61 H Creatinine 3.1 H Glucose POC Glucose 62 L Lactic Acid Calcium 8.2 L Phosphorus Magnesium Direct Bilirubin AST ALT Alkaline Phosphatase Lactate Dehydrogenase Troponin T C-Reactive Protein Total Protein Albumin Prealbumin Triglycerides Cholesterol LDL Cholesterol Direct HDL Cholesterol Urine pH Urine WBC (Auto) Urine Creatinine Urine Total Protein Fluid Total Protein Vancomycin Trough Rheumatoid Factor Complement C4 Miscellaneous Test Crossmatch 11/24/16 11/24/16 11/24/16 08:34 11:20 12:41 WBC RBC Hgb Hct MCV MCH MCHC RDW Plt Count Lymph % (Auto) [place] % (Auto) Lymph # [place] # Baso # Seg Neutrophils % Seg Neuts % (Manual) Lymphocytes % (Manual) Monocytes % (Manual) Eosinophils % (Manual) Basophils % (Manual) Nucleated RBC % Seg Neutrophils # Seg Neutrophils # Man Lymphocytes # (Manual) Monocytes # (Manual) Eosinophils # (Manual) Basophils # (Manual) PT INR Fibrinogen dRVVT Confirm Interp Factor V Activity POC ABG pH POC ABG pCO2 POC ABG pO2 ABG pO2 ABG HCO3 ABG Base Excess ABG Hemoglobin Oxyhemoglobin Sodium Potassium Chloride Carbon Dioxide BUN Creatinine Glucose POC Glucose 108 H Lactic Acid Calcium Phosphorus Magnesium 1.60 L Direct Bilirubin AST ALT Alkaline Phosphatase Lactate Dehydrogenase Troponin T C-Reactive Protein Total Protein Albumin Prealbumin Triglycerides Cholesterol LDL Cholesterol Direct HDL Cholesterol Urine pH Urine WBC (Auto) Urine Creatinine Urine Total Protein Fluid Total Protein Vancomycin Trough Rheumatoid Factor Complement C4 Miscellaneous Test Crossmatch See Detail 11/25/16 11/25/16 11/25/16 00:03 04:42 04:42 WBC RBC 3.03 L Hgb 8.6 L Hct 25.3 L MCV MCH MCHC RDW 16.2 H Plt Count Lymph % (Auto) [place] % (Auto) 8.1 H Lymph # [place] # Baso # Seg Neutrophils % 71.3 H Seg Neuts % (Manual) Lymphocytes % (Manual) Monocytes % (Manual) Eosinophils % (Manual) Basophils % (Manual) Nucleated RBC % Seg Neutrophils # Seg Neutrophils # Man Lymphocytes # (Manual) Monocytes # (Manual) Eosinophils # (Manual) Basophils # (Manual) PT INR Fibrinogen dRVVT Confirm Interp Factor V Activity POC ABG pH POC ABG pCO2 POC ABG pO2 ABG pO2 ABG HCO3 ABG Base Excess ABG Hemoglobin Oxyhemoglobin Sodium Potassium Chloride Carbon Dioxide BUN 61 H Creatinine 3.0 H Glucose 102 H POC Glucose 113 H Lactic Acid Calcium 8.2 L Phosphorus Magnesium Direct Bilirubin AST ALT Alkaline Phosphatase 142 H Lactate Dehydrogenase Troponin T C-Reactive Protein Total Protein 5.7 L Albumin 1.5 L Prealbumin Triglycerides Cholesterol LDL Cholesterol Direct HDL Cholesterol Urine pH Urine WBC (Auto) Urine Creatinine Urine Total Protein Fluid Total Protein Vancomycin Trough Rheumatoid Factor Complement C4 Miscellaneous Test Crossmatch 11/25/16 11/25/16 11/25/16 05:12 11:31 14:12 WBC RBC Hgb Hct MCV MCH MCHC RDW Plt Count Lymph % (Auto) [place] % (Auto) Lymph # [place] # Baso # Seg Neutrophils % Seg Neuts % (Manual) Lymphocytes % (Manual) Monocytes % (Manual) Eosinophils % (Manual) Basophils % (Manual) Nucleated RBC % Seg Neutrophils # Seg Neutrophils # Man Lymphocytes # (Manual) Monocytes # (Manual) Eosinophils # (Manual) Basophils # (Manual) PT INR Fibrinogen dRVVT Confirm Interp Factor V Activity POC ABG pH 7.487 H POC ABG pCO2 POC ABG pO2 153 H ABG pO2 ABG HCO3 ABG Base Excess ABG Hemoglobin Oxyhemoglobin Sodium Potassium Chloride Carbon Dioxide BUN Creatinine Glucose POC Glucose 131 H 140 H Lactic Acid Calcium Phosphorus Magnesium Direct Bilirubin AST ALT Alkaline Phosphatase Lactate Dehydrogenase Troponin T C-Reactive Protein Total Protein Albumin Prealbumin Triglycerides Cholesterol LDL Cholesterol Direct HDL Cholesterol Urine pH Urine WBC (Auto) Urine Creatinine Urine Total Protein Fluid Total Protein Vancomycin Trough Rheumatoid Factor Complement C4 Miscellaneous Test Crossmatch 11/25/16 11/26/16 11/26/16 17:23 00:09 05:13 WBC RBC 2.94 L Hgb 8.4 L Hct 24.6 L MCV MCH MCHC RDW 16.4 H Plt Count Lymph % (Auto) [place] % (Auto) 12.3 H Lymph # [place] # 1.1 H Baso # Seg Neutrophils % Seg Neuts % (Manual) Lymphocytes % (Manual) Monocytes % (Manual) Eosinophils % (Manual) Basophils % (Manual) Nucleated RBC % Seg Neutrophils # Seg Neutrophils # Man Lymphocytes # (Manual) Monocytes # (Manual) Eosinophils # (Manual) Basophils # (Manual) PT INR Fibrinogen dRVVT Confirm Interp Factor V Activity POC ABG pH POC ABG pCO2 POC ABG pO2 ABG pO2 ABG HCO3 ABG Base Excess ABG Hemoglobin Oxyhemoglobin Sodium Potassium Chloride Carbon Dioxide BUN Creatinine Glucose POC Glucose 146 H 112 H Lactic Acid Calcium Phosphorus Magnesium Direct Bilirubin AST ALT Alkaline Phosphatase Lactate Dehydrogenase Troponin T C-Reactive Protein Total Protein Albumin Prealbumin Triglycerides Cholesterol LDL Cholesterol Direct HDL Cholesterol Urine pH Urine WBC (Auto) Urine Creatinine Urine Total Protein Fluid Total Protein Vancomycin Trough Rheumatoid Factor Complement C4 Miscellaneous Test Crossmatch 11/26/16 11/26/16 11/26/16 05:13 05:28 11:53 WBC RBC Hgb Hct MCV MCH MCHC RDW Plt Count Lymph % (Auto) [place] % (Auto) Lymph # [place] # Baso # Seg Neutrophils % Seg Neuts % (Manual) Lymphocytes % (Manual) Monocytes % (Manual) Eosinophils % (Manual) Basophils % (Manual) Nucleated RBC % Seg Neutrophils # Seg Neutrophils # Man Lymphocytes # (Manual) Monocytes # (Manual) Eosinophils # (Manual) Basophils # (Manual) PT INR Fibrinogen dRVVT Confirm Interp Factor V Activity POC ABG pH POC ABG pCO2 POC ABG pO2 ABG pO2 ABG HCO3 ABG Base Excess ABG Hemoglobin Oxyhemoglobin Sodium Potassium Chloride 97.8 L Carbon Dioxide BUN 37 H Creatinine 2.0 H Glucose 109 H POC Glucose 117 H 111 H Lactic Acid Calcium 7.9 L Phosphorus 1.80 L D Magnesium Direct Bilirubin AST ALT Alkaline Phosphatase Lactate Dehydrogenase Troponin T C-Reactive Protein Total Protein Albumin Prealbumin Triglycerides Cholesterol LDL Cholesterol Direct HDL Cholesterol Urine pH Urine WBC (Auto) Urine Creatinine Urine Total Protein Fluid Total Protein Vancomycin Trough Rheumatoid Factor Complement C4 Miscellaneous Test Crossmatch 11/26/16 11/27/16 11/27/16 17:14 04:50 06:02 WBC RBC Hgb Hct MCV MCH MCHC RDW Plt Count Lymph % (Auto) [place] % (Auto) Lymph # [place] # Baso # Seg Neutrophils % Seg Neuts % (Manual) Lymphocytes % (Manual) Monocytes % (Manual) Eosinophils % (Manual) Basophils % (Manual) Nucleated RBC % Seg Neutrophils # Seg Neutrophils # Man Lymphocytes # (Manual) Monocytes # (Manual) Eosinophils # (Manual) Basophils # (Manual) PT INR Fibrinogen dRVVT Confirm Interp Factor V Activity POC ABG pH POC ABG pCO2 POC ABG pO2 ABG pO2 75.2 L ABG HCO3 26.4 H ABG Base Excess ABG Hemoglobin 7.6 L Oxyhemoglobin 94.8 L Sodium Potassium Chloride Carbon Dioxide BUN 49 H Creatinine 2.3 H Glucose POC Glucose 115 H Lactic Acid Calcium Phosphorus 1.50 L Magnesium Direct Bilirubin AST ALT Alkaline Phosphatase Lactate Dehydrogenase Troponin T C-Reactive Protein Total Protein Albumin Prealbumin Triglycerides Cholesterol LDL Cholesterol Direct HDL Cholesterol Urine pH Urine WBC (Auto) Urine Creatinine Urine Total Protein Fluid Total Protein Vancomycin Trough Rheumatoid Factor Complement C4 Miscellaneous Test Crossmatch 11/27/16 11/27/16 11/27/16 06:02 11:25 17:25 WBC 11.6 H RBC 2.75 L Hgb 7.6 L Hct 23.4 L MCV MCH MCHC RDW 16.5 H Plt Count Lymph % (Auto) [place] % (Auto) Lymph # [place] # Baso # Seg Neutrophils % Seg Neuts % (Manual) Lymphocytes % (Manual) Monocytes % (Manual) Eosinophils % (Manual) Basophils % (Manual) Nucleated RBC % Seg Neutrophils # Seg Neutrophils # Man Lymphocytes # (Manual) Monocytes # (Manual) Eosinophils # (Manual) Basophils # (Manual) PT INR Fibrinogen dRVVT Confirm Interp Factor V Activity POC ABG pH POC ABG pCO2 POC ABG pO2 ABG pO2 ABG HCO3 ABG Base Excess ABG Hemoglobin Oxyhemoglobin Sodium Potassium Chloride Carbon Dioxide BUN Creatinine Glucose POC Glucose 114 H 126 H Lactic Acid Calcium Phosphorus Magnesium Direct Bilirubin AST ALT Alkaline Phosphatase Lactate Dehydrogenase Troponin T C-Reactive Protein Total Protein Albumin Prealbumin Triglycerides Cholesterol LDL Cholesterol Direct HDL Cholesterol Urine pH Urine WBC (Auto) Urine Creatinine Urine Total Protein Fluid Total Protein Vancomycin Trough Rheumatoid Factor Complement C4 Miscellaneous Test Crossmatch 11/28/16 11/28/16 11/28/16 04:45 05:33 05:44 WBC RBC Hgb Hct MCV MCH MCHC RDW Plt Count Lymph % (Auto) [place] % (Auto) Lymph # [place] # Baso # Seg Neutrophils % Seg Neuts % (Manual) Lymphocytes % (Manual) Monocytes % (Manual) Eosinophils % (Manual) Basophils % (Manual) Nucleated RBC % Seg Neutrophils # Seg Neutrophils # Man Lymphocytes # (Manual) Monocytes # (Manual) Eosinophils # (Manual) Basophils # (Manual) PT INR Fibrinogen dRVVT Confirm Interp Factor V Activity POC ABG pH POC ABG pCO2 POC ABG pO2 ABG pO2 99.3 H ABG HCO3 ABG Base Excess ABG Hemoglobin 8.3 L Oxyhemoglobin Sodium Potassium Chloride Carbon Dioxide BUN 63 H Creatinine 2.4 H Glucose 102 H POC Glucose 108 H Lactic Acid Calcium Phosphorus 1.80 L Magnesium Direct Bilirubin AST ALT Alkaline Phosphatase Lactate Dehydrogenase Troponin T C-Reactive Protein Total Protein Albumin Prealbumin Triglycerides Cholesterol LDL Cholesterol Direct HDL Cholesterol Urine pH Urine WBC (Auto) Urine Creatinine Urine Total Protein Fluid Total Protein Vancomycin Trough Rheumatoid Factor Complement C4 Miscellaneous Test Crossmatch 11/28/16 11/28/16 11/28/16 12:31 16:09 23:46 WBC RBC Hgb Hct MCV MCH MCHC RDW Plt Count Lymph % (Auto) [place] % (Auto) Lymph # [place] # Baso # Seg Neutrophils % Seg Neuts % (Manual) Lymphocytes % (Manual) Monocytes % (Manual) Eosinophils % (Manual) Basophils % (Manual) Nucleated RBC % Seg Neutrophils # Seg Neutrophils # Man Lymphocytes # (Manual) Monocytes # (Manual) Eosinophils # (Manual) Basophils # (Manual) PT INR Fibrinogen dRVVT Confirm Interp Factor V Activity POC ABG pH POC ABG pCO2 POC ABG pO2 ABG pO2 ABG HCO3 ABG Base Excess ABG Hemoglobin Oxyhemoglobin Sodium Potassium Chloride Carbon Dioxide BUN Creatinine Glucose POC Glucose 126 H 111 H 119 H Lactic Acid Calcium Phosphorus Magnesium Direct Bilirubin AST ALT Alkaline Phosphatase Lactate Dehydrogenase Troponin T C-Reactive Protein Total Protein Albumin Prealbumin Triglycerides Cholesterol LDL Cholesterol Direct HDL Cholesterol Urine pH Urine WBC (Auto) Urine Creatinine Urine Total Protein Fluid Total Protein Vancomycin Trough Rheumatoid Factor Complement C4 Miscellaneous Test Crossmatch 11/29/16 11/29/16 11/29/16 03:33 04:52 05:10 WBC RBC Hgb Hct MCV MCH MCHC RDW Plt Count Lymph % (Auto) [place] % (Auto) Lymph # [place] # Baso # Seg Neutrophils % Seg Neuts % (Manual) Lymphocytes % (Manual) Monocytes % (Manual) Eosinophils % (Manual) Basophils % (Manual) Nucleated RBC % Seg Neutrophils # Seg Neutrophils # Man Lymphocytes # (Manual) Monocytes # (Manual) Eosinophils # (Manual) Basophils # (Manual) PT INR Fibrinogen dRVVT Confirm Interp Factor V Activity POC ABG pH POC ABG pCO2 POC ABG pO2 ABG pO2 ABG HCO3 ABG Base Excess ABG Hemoglobin 7.0 L Oxyhemoglobin 94.9 L Sodium Potassium Chloride Carbon Dioxide BUN 73 H Creatinine 2.7 H Glucose POC Glucose 108 H Lactic Acid Calcium Phosphorus Magnesium Direct Bilirubin AST ALT Alkaline Phosphatase Lactate Dehydrogenase Troponin T C-Reactive Protein Total Protein Albumin Prealbumin Triglycerides Cholesterol LDL Cholesterol Direct HDL Cholesterol Urine pH Urine WBC (Auto) Urine Creatinine Urine Total Protein Fluid Total Protein Vancomycin Trough Rheumatoid Factor Complement C4 Miscellaneous Test Crossmatch 11/29/16 11/29/16 11/29/16 12:16 18:05 23:46 WBC RBC Hgb Hct MCV MCH MCHC RDW Plt Count Lymph % (Auto) [place] % (Auto) Lymph # [place] # Baso # Seg Neutrophils % Seg Neuts % (Manual) Lymphocytes % (Manual) Monocytes % (Manual) Eosinophils % (Manual) Basophils % (Manual) Nucleated RBC % Seg Neutrophils # Seg Neutrophils # Man Lymphocytes # (Manual) Monocytes # (Manual) Eosinophils # (Manual) Basophils # (Manual) PT INR Fibrinogen dRVVT Confirm Interp Factor V Activity POC ABG pH POC ABG pCO2 POC ABG pO2 ABG pO2 ABG HCO3 ABG Base Excess ABG Hemoglobin Oxyhemoglobin Sodium Potassium Chloride Carbon Dioxide BUN Creatinine Glucose POC Glucose 133 H 146 H 141 H Lactic Acid Calcium Phosphorus Magnesium Direct Bilirubin AST ALT Alkaline Phosphatase Lactate Dehydrogenase Troponin T C-Reactive Protein Total Protein Albumin Prealbumin Triglycerides Cholesterol LDL Cholesterol Direct HDL Cholesterol Urine pH Urine WBC (Auto) Urine Creatinine Urine Total Protein Fluid Total Protein Vancomycin Trough Rheumatoid Factor Complement C4 Miscellaneous Test Crossmatch 11/30/16 11/30/16 11/30/16 04:17 04:17 04:32 WBC 12.0 H RBC 2.80 L Hgb 7.8 L Hct 23.6 L MCV MCH MCHC RDW 16.6 H Plt Count Lymph % (Auto) [place] % (Auto) 11.3 H Lymph # [place] # 1.4 H Baso # Seg Neutrophils % Seg Neuts % (Manual) Lymphocytes % (Manual) Monocytes % (Manual) Eosinophils % (Manual) Basophils % (Manual) Nucleated RBC % Seg Neutrophils # 8.2 H Seg Neutrophils # Man Lymphocytes # (Manual) Monocytes # (Manual) Eosinophils # (Manual) Basophils # (Manual) PT INR Fibrinogen dRVVT Confirm Interp Factor V Activity POC ABG pH POC ABG pCO2 POC ABG pO2 ABG pO2 ABG HCO3 ABG Base Excess ABG Hemoglobin Oxyhemoglobin Sodium 169 H* D Potassium 5.1 H Chloride 121.5 H Carbon Dioxide BUN 34 H Creatinine 1.3 H D Glucose 133 H POC Glucose 131 H Lactic Acid Calcium 10.3 H Phosphorus Magnesium Direct Bilirubin AST ALT Alkaline Phosphatase Lactate Dehydrogenase Troponin T C-Reactive Protein Total Protein Albumin Prealbumin Triglycerides Cholesterol LDL Cholesterol Direct HDL Cholesterol Urine pH Urine WBC (Auto) Urine Creatinine Urine Total Protein Fluid Total Protein Vancomycin Trough Rheumatoid Factor Complement C4 Miscellaneous Test Crossmatch 11/30/16 11/30/16 11/30/16 05:45 11:10 17:26 WBC RBC Hgb Hct MCV MCH MCHC RDW Plt Count Lymph % (Auto) [place] % (Auto) Lymph # [place] # Baso # Seg Neutrophils % Seg Neuts % (Manual) Lymphocytes % (Manual) Monocytes % (Manual) Eosinophils % (Manual) Basophils % (Manual) Nucleated RBC % Seg Neutrophils # Seg Neutrophils # Man Lymphocytes # (Manual) Monocytes # (Manual) Eosinophils # (Manual) Basophils # (Manual) PT INR Fibrinogen dRVVT Confirm Interp Factor V Activity POC ABG pH POC ABG pCO2 POC ABG pO2 ABG pO2 ABG HCO3 ABG Base Excess ABG Hemoglobin Oxyhemoglobin Sodium Potassium Chloride Carbon Dioxide BUN 45 H Creatinine 1.6 H Glucose 131 H POC Glucose 146 H 134 H Lactic Acid Calcium Phosphorus Magnesium Direct Bilirubin AST ALT Alkaline Phosphatase Lactate Dehydrogenase Troponin T C-Reactive Protein Total Protein Albumin Prealbumin Triglycerides Cholesterol LDL Cholesterol Direct HDL Cholesterol Urine pH Urine WBC (Auto) Urine Creatinine Urine Total Protein Fluid Total Protein Vancomycin Trough Rheumatoid Factor Complement C4 Miscellaneous Test Crossmatch 11/30/16 12/01/16 12/01/16 23:35 00:06 03:35 WBC RBC Hgb Hct MCV MCH MCHC RDW Plt Count Lymph % (Auto) [place] % (Auto) Lymph # [place] # Baso # Seg Neutrophils % Seg Neuts % (Manual) Lymphocytes % (Manual) Monocytes % (Manual) Eosinophils % (Manual) Basophils % (Manual) Nucleated RBC % Seg Neutrophils # Seg Neutrophils # Man Lymphocytes # (Manual) Monocytes # (Manual) Eosinophils # (Manual) Basophils # (Manual) PT INR Fibrinogen dRVVT Confirm Interp Factor V Activity POC ABG pH POC ABG pCO2 POC ABG pO2 ABG pO2 ABG HCO3 ABG Base Excess ABG Hemoglobin 6.9 L Oxyhemoglobin Sodium Potassium Chloride Carbon Dioxide BUN 58 H Creatinine 1.8 H Glucose 146 H POC Glucose 151 H Lactic Acid Calcium Phosphorus Magnesium Direct Bilirubin AST ALT Alkaline Phosphatase Lactate Dehydrogenase Troponin T C-Reactive Protein Total Protein Albumin Prealbumin Triglycerides Cholesterol LDL Cholesterol Direct HDL Cholesterol Urine pH Urine WBC (Auto) Urine Creatinine Urine Total Protein Fluid Total Protein Vancomycin Trough Rheumatoid Factor Complement C4 Miscellaneous Test Crossmatch 12/01/16 12/01/16 12/01/16 03:35 05:47 11:52 WBC 12.3 H RBC 2.82 L Hgb 7.8 L Hct 23.7 L MCV MCH MCHC RDW 16.7 H Plt Count Lymph % (Auto) [place] % (Auto) 9.8 H Lymph # [place] # 1.2 H Baso # Seg Neutrophils % Seg Neuts % (Manual) Lymphocytes % (Manual) Monocytes % (Manual) Eosinophils % (Manual) Basophils % (Manual) Nucleated RBC % Seg Neutrophils # 8.4 H Seg Neutrophils # Man Lymphocytes # (Manual) Monocytes # (Manual) Eosinophils # (Manual) Basophils # (Manual) PT INR Fibrinogen dRVVT Confirm Interp Factor V Activity POC ABG pH POC ABG pCO2 POC ABG pO2 ABG pO2 ABG HCO3 ABG Base Excess ABG Hemoglobin Oxyhemoglobin Sodium Potassium Chloride Carbon Dioxide BUN Creatinine Glucose POC Glucose 152 H 152 H Lactic Acid Calcium Phosphorus Magnesium Direct Bilirubin AST ALT Alkaline Phosphatase Lactate Dehydrogenase Troponin T C-Reactive Protein Total Protein Albumin Prealbumin Triglycerides Cholesterol LDL Cholesterol Direct HDL Cholesterol Urine pH Urine WBC (Auto) Urine Creatinine Urine Total Protein Fluid Total Protein Vancomycin Trough Rheumatoid Factor Complement C4 Miscellaneous Test Crossmatch 12/01/16 12/01/16 12/02/16 17:40 23:41 05:00 WBC RBC Hgb Hct MCV MCH MCHC RDW Plt Count Lymph % (Auto) [place] % (Auto) Lymph # [place] # Baso # Seg Neutrophils % Seg Neuts % (Manual) Lymphocytes % (Manual) Monocytes % (Manual) Eosinophils % (Manual) Basophils % (Manual) Nucleated RBC % Seg Neutrophils # Seg Neutrophils # Man Lymphocytes # (Manual) Monocytes # (Manual) Eosinophils # (Manual) Basophils # (Manual) PT INR Fibrinogen dRVVT Confirm Interp Factor V Activity POC ABG pH POC ABG pCO2 POC ABG pO2 ABG pO2 ABG HCO3 ABG Base Excess ABG Hemoglobin Oxyhemoglobin Sodium Potassium Chloride Carbon Dioxide BUN 45 H Creatinine Glucose 115 H POC Glucose 140 H 144 H Lactic Acid Calcium Phosphorus Magnesium Direct Bilirubin AST ALT Alkaline Phosphatase Lactate Dehydrogenase Troponin T C-Reactive Protein Total Protein Albumin Prealbumin Triglycerides Cholesterol LDL Cholesterol Direct HDL Cholesterol Urine pH Urine WBC (Auto) Urine Creatinine Urine Total Protein Fluid Total Protein Vancomycin Trough Rheumatoid Factor Complement C4 Miscellaneous Test Crossmatch 12/02/16 12/02/16 12/02/16 05:31 11:20 17:38 WBC RBC Hgb Hct MCV MCH MCHC RDW Plt Count Lymph % (Auto) [place] % (Auto) Lymph # [place] # Baso # Seg Neutrophils % Seg Neuts % (Manual) Lymphocytes % (Manual) Monocytes % (Manual) Eosinophils % (Manual) Basophils % (Manual) Nucleated RBC % Seg Neutrophils # Seg Neutrophils # Man Lymphocytes # (Manual) Monocytes # (Manual) Eosinophils # (Manual) Basophils # (Manual) PT INR Fibrinogen dRVVT Confirm Interp Factor V Activity POC ABG pH POC ABG pCO2 POC ABG pO2 ABG pO2 ABG HCO3 ABG Base Excess ABG Hemoglobin Oxyhemoglobin Sodium Potassium Chloride Carbon Dioxide BUN Creatinine Glucose POC Glucose 136 H 177 H 139 H Lactic Acid Calcium Phosphorus Magnesium Direct Bilirubin AST ALT Alkaline Phosphatase Lactate Dehydrogenase Troponin T C-Reactive Protein Total Protein Albumin Prealbumin Triglycerides Cholesterol LDL Cholesterol Direct HDL Cholesterol Urine pH Urine WBC (Auto) Urine Creatinine Urine Total Protein Fluid Total Protein Vancomycin Trough Rheumatoid Factor Complement C4 Miscellaneous Test Crossmatch 12/02/16 12/03/16 12/03/16 23:43 04:00 04:00 WBC 20.4 H RBC 2.74 L Hgb 7.4 L Hct 23.6 L MCV MCH 27 L MCHC RDW 17.1 H Plt Count Lymph % (Auto) [place] % (Auto) Lymph # [place] # Baso # Seg Neutrophils % Seg Neuts % (Manual) 31.0 L Lymphocytes % (Manual) Monocytes % (Manual) Eosinophils % (Manual) Basophils % (Manual) Nucleated RBC % Seg Neutrophils # Seg Neutrophils # Man Lymphocytes # (Manual) Monocytes # (Manual) Eosinophils # (Manual) Basophils # (Manual) PT INR Fibrinogen dRVVT Confirm Interp Factor V Activity POC ABG pH POC ABG pCO2 POC ABG pO2 ABG pO2 ABG HCO3 ABG Base Excess ABG Hemoglobin Oxyhemoglobin Sodium Potassium Chloride Carbon Dioxide BUN 61 H Creatinine 1.6 H Glucose 119 H POC Glucose 158 H Lactic Acid Calcium Phosphorus Magnesium Direct Bilirubin AST ALT Alkaline Phosphatase Lactate Dehydrogenase Troponin T C-Reactive Protein Total Protein Albumin Prealbumin Triglycerides Cholesterol LDL Cholesterol Direct HDL Cholesterol Urine pH Urine WBC (Auto) Urine Creatinine Urine Total Protein Fluid Total Protein Vancomycin Trough Rheumatoid Factor Complement C4 Miscellaneous Test Crossmatch 12/03/16 12/03/16 12/03/16 05:02 12:11 18:16 WBC RBC Hgb Hct MCV MCH MCHC RDW Plt Count Lymph % (Auto) [place] % (Auto) Lymph # [place] # Baso # Seg Neutrophils % Seg Neuts % (Manual) Lymphocytes % (Manual) Monocytes % (Manual) Eosinophils % (Manual) Basophils % (Manual) Nucleated RBC % Seg Neutrophils # Seg Neutrophils # Man Lymphocytes # (Manual) Monocytes # (Manual) Eosinophils # (Manual) Basophils # (Manual) PT INR Fibrinogen dRVVT Confirm Interp Factor V Activity POC ABG pH POC ABG pCO2 POC ABG pO2 ABG pO2 ABG HCO3 ABG Base Excess ABG Hemoglobin Oxyhemoglobin Sodium Potassium Chloride Carbon Dioxide BUN Creatinine Glucose POC Glucose 146 H 157 H 124 H Lactic Acid Calcium Phosphorus Magnesium Direct Bilirubin AST ALT Alkaline Phosphatase Lactate Dehydrogenase Troponin T C-Reactive Protein Total Protein Albumin Prealbumin Triglycerides Cholesterol LDL Cholesterol Direct HDL Cholesterol Urine pH Urine WBC (Auto) Urine Creatinine Urine Total Protein Fluid Total Protein Vancomycin Trough Rheumatoid Factor Complement C4 Miscellaneous Test Crossmatch 12/03/16 12/04/16 12/04/16 23:41 04:00 04:45 WBC RBC Hgb Hct MCV MCH MCHC RDW Plt Count Lymph % (Auto) [place] % (Auto) Lymph # [place] # Baso # Seg Neutrophils % Seg Neuts % (Manual) Lymphocytes % (Manual) Monocytes % (Manual) Eosinophils % (Manual) Basophils % (Manual) Nucleated RBC % Seg Neutrophils # Seg Neutrophils # Man Lymphocytes # (Manual) Monocytes # (Manual) Eosinophils # (Manual) Basophils # (Manual) PT INR Fibrinogen dRVVT Confirm Interp Factor V Activity POC ABG pH POC ABG pCO2 POC ABG pO2 ABG pO2 ABG HCO3 ABG Base Excess ABG Hemoglobin Oxyhemoglobin Sodium Potassium Chloride Carbon Dioxide BUN 76 H Creatinine 1.6 H Glucose POC Glucose 130 H 136 H Lactic Acid Calcium Phosphorus Magnesium Direct Bilirubin AST ALT Alkaline Phosphatase 155 H Lactate Dehydrogenase Troponin T C-Reactive Protein Total Protein 5.5 L Albumin 1.5 L Prealbumin Triglycerides Cholesterol LDL Cholesterol Direct HDL Cholesterol Urine pH Urine WBC (Auto) Urine Creatinine Urine Total Protein Fluid Total Protein Vancomycin Trough Rheumatoid Factor Complement C4 Miscellaneous Test Crossmatch 12/04/16 12/04/16 12/05/16 12:08 17:23 00:10 WBC RBC Hgb Hct MCV MCH MCHC RDW Plt Count Lymph % (Auto) [place] % (Auto) Lymph # [place] # Baso # Seg Neutrophils % Seg Neuts % (Manual) Lymphocytes % (Manual) Monocytes % (Manual) Eosinophils % (Manual) Basophils % (Manual) Nucleated RBC % Seg Neutrophils # Seg Neutrophils # Man Lymphocytes # (Manual) Monocytes # (Manual) Eosinophils # (Manual) Basophils # (Manual) PT INR Fibrinogen dRVVT Confirm Interp Factor V Activity POC ABG pH POC ABG pCO2 POC ABG pO2 ABG pO2 ABG HCO3 ABG Base Excess ABG Hemoglobin Oxyhemoglobin Sodium Potassium Chloride Carbon Dioxide BUN Creatinine Glucose POC Glucose 114 H 129 H 124 H Lactic Acid Calcium Phosphorus Magnesium Direct Bilirubin AST ALT Alkaline Phosphatase Lactate Dehydrogenase Troponin T C-Reactive Protein Total Protein Albumin Prealbumin Triglycerides Cholesterol LDL Cholesterol Direct HDL Cholesterol Urine pH Urine WBC (Auto) Urine Creatinine Urine Total Protein Fluid Total Protein Vancomycin Trough Rheumatoid Factor Complement C4 Miscellaneous Test Crossmatch 12/05/16 12/05/16 12/05/16 05:00 05:00 05:18 WBC RBC Hgb Hct MCV MCH MCHC RDW Plt Count Lymph % (Auto) [place] % (Auto) Lymph # [place] # Baso # Seg Neutrophils % Seg Neuts % (Manual) Lymphocytes % (Manual) Monocytes % (Manual) Eosinophils % (Manual) Basophils % (Manual) Nucleated RBC % Seg Neutrophils # Seg Neutrophils # Man Lymphocytes # (Manual) Monocytes # (Manual) Eosinophils # (Manual) Basophils # (Manual) PT INR Fibrinogen dRVVT Confirm Interp Factor V Activity POC ABG pH POC ABG pCO2 POC ABG pO2 ABG pO2 ABG HCO3 ABG Base Excess ABG Hemoglobin Oxyhemoglobin Sodium Potassium Chloride Carbon Dioxide 21 L BUN 85 H Creatinine 1.9 H Glucose 131 H POC Glucose 154 H Lactic Acid Calcium Phosphorus Magnesium Direct Bilirubin AST ALT Alkaline Phosphatase Lactate Dehydrogenase Troponin T C-Reactive Protein 19.30 H Total Protein Albumin Prealbumin Triglycerides Cholesterol LDL Cholesterol Direct HDL Cholesterol Urine pH Urine WBC (Auto) Urine Creatinine Urine Total Protein Fluid Total Protein Vancomycin Trough Rheumatoid Factor Complement C4 Miscellaneous Test Crossmatch 12/05/16 12/05/16 12/05/16 11:43 17:46 23:25 WBC RBC Hgb Hct MCV MCH MCHC RDW Plt Count Lymph % (Auto) [place] % (Auto) Lymph # [place] # Baso # Seg Neutrophils % Seg Neuts % (Manual) Lymphocytes % (Manual) Monocytes % (Manual) Eosinophils % (Manual) Basophils % (Manual) Nucleated RBC % Seg Neutrophils # Seg Neutrophils # Man Lymphocytes # (Manual) Monocytes # (Manual) Eosinophils # (Manual) Basophils # (Manual) PT INR Fibrinogen dRVVT Confirm Interp Factor V Activity POC ABG pH POC ABG pCO2 POC ABG pO2 ABG pO2 ABG HCO3 ABG Base Excess ABG Hemoglobin Oxyhemoglobin Sodium Potassium Chloride Carbon Dioxide BUN Creatinine Glucose POC Glucose 117 H 113 H 111 H Lactic Acid Calcium Phosphorus Magnesium Direct Bilirubin AST ALT Alkaline Phosphatase Lactate Dehydrogenase Troponin T C-Reactive Protein Total Protein Albumin Prealbumin Triglycerides Cholesterol LDL Cholesterol Direct HDL Cholesterol Urine pH Urine WBC (Auto) Urine Creatinine Urine Total Protein Fluid Total Protein Vancomycin Trough Rheumatoid Factor Complement C4 Miscellaneous Test Crossmatch 12/05/16 12/06/16 12/06/16 Unknown 04:58 06:00 WBC RBC Hgb Hct MCV MCH MCHC RDW Plt Count Lymph % (Auto) [place] % (Auto) Lymph # [place] # Baso # Seg Neutrophils % Seg Neuts % (Manual) Lymphocytes % (Manual) Monocytes % (Manual) Eosinophils % (Manual) Basophils % (Manual) Nucleated RBC % Seg Neutrophils # Seg Neutrophils # Man Lymphocytes # (Manual) Monocytes # (Manual) Eosinophils # (Manual) Basophils # (Manual) PT INR Fibrinogen dRVVT Confirm Interp Factor V Activity POC ABG pH POC ABG pCO2 POC ABG pO2 ABG pO2 75.2 L ABG HCO3 ABG Base Excess -3.4 L ABG Hemoglobin 7.4 L Oxyhemoglobin 94.5 L Sodium Potassium Chloride Carbon Dioxide 20 L BUN 99 H Creatinine 2.1 H Glucose 126 H POC Glucose 145 H Lactic Acid Calcium Phosphorus 4.80 H Magnesium Direct Bilirubin AST ALT Alkaline Phosphatase Lactate Dehydrogenase Troponin T C-Reactive Protein Total Protein Albumin Prealbumin Triglycerides Cholesterol LDL Cholesterol Direct HDL Cholesterol Urine pH Urine WBC (Auto) Urine Creatinine Urine Total Protein Fluid Total Protein Vancomycin Trough Rheumatoid Factor Complement C4 Miscellaneous Test Crossmatch 12/06/16 12/06/16 12/06/16 06:46 11:54 17:55 WBC RBC Hgb 8.3 L Hct 26.4 L MCV MCH MCHC RDW Plt Count Lymph % (Auto) [place] % (Auto) Lymph # [place] # Baso # Seg Neutrophils % Seg Neuts % (Manual) Lymphocytes % (Manual) Monocytes % (Manual) Eosinophils % (Manual) Basophils % (Manual) Nucleated RBC % Seg Neutrophils # Seg Neutrophils # Man Lymphocytes # (Manual) Monocytes # (Manual) Eosinophils # (Manual) Basophils # (Manual) PT INR Fibrinogen dRVVT Confirm Interp Factor V Activity POC ABG pH POC ABG pCO2 POC ABG pO2 ABG pO2 ABG HCO3 ABG Base Excess ABG Hemoglobin Oxyhemoglobin Sodium Potassium Chloride Carbon Dioxide BUN Creatinine Glucose POC Glucose 126 H 157 H Lactic Acid Calcium Phosphorus Magnesium Direct Bilirubin AST ALT Alkaline Phosphatase Lactate Dehydrogenase Troponin T C-Reactive Protein Total Protein Albumin Prealbumin Triglycerides Cholesterol LDL Cholesterol Direct HDL Cholesterol Urine pH Urine WBC (Auto) Urine Creatinine Urine Total Protein Fluid Total Protein Vancomycin Trough Rheumatoid Factor Complement C4 Miscellaneous Test Crossmatch 12/06/16 12/07/16 12/07/16 23:59 05:34 06:30 WBC RBC Hgb Hct MCV MCH MCHC RDW Plt Count Lymph % (Auto) [place] % (Auto) Lymph # [place] # Baso # Seg Neutrophils % Seg Neuts % (Manual) Lymphocytes % (Manual) Monocytes % (Manual) Eosinophils % (Manual) Basophils % (Manual) Nucleated RBC % Seg Neutrophils # Seg Neutrophils # Man Lymphocytes # (Manual) Monocytes # (Manual) Eosinophils # (Manual) Basophils # (Manual) PT INR Fibrinogen dRVVT Confirm Interp Factor V Activity POC ABG pH POC ABG pCO2 POC ABG pO2 ABG pO2 ABG HCO3 ABG Base Excess ABG Hemoglobin Oxyhemoglobin Sodium Potassium Chloride Carbon Dioxide BUN 67 H Creatinine 1.4 H Glucose 126 H POC Glucose 129 H 129 H Lactic Acid Calcium Phosphorus Magnesium Direct Bilirubin AST ALT Alkaline Phosphatase Lactate Dehydrogenase Troponin T C-Reactive Protein Total Protein Albumin Prealbumin Triglycerides Cholesterol LDL Cholesterol Direct HDL Cholesterol Urine pH Urine WBC (Auto) Urine Creatinine Urine Total Protein Fluid Total Protein Vancomycin Trough Rheumatoid Factor Complement C4 Miscellaneous Test Crossmatch 12/07/16 12/07/16 12/07/16 06:30 08:00 09:45 WBC 18.8 H RBC 2.52 L Hgb 6.9 L 6.8 L Hct 21.2 L 21.1 L MCV MCH 27 L MCHC RDW 18.0 H Plt Count Lymph % (Auto) [place] % (Auto) 9.9 H Lymph # [place] # 1.9 H Baso # Seg Neutrophils % 71.8 H Seg Neuts % (Manual) Lymphocytes % (Manual) Monocytes % (Manual) Eosinophils % (Manual) Basophils % (Manual) Nucleated RBC % Seg Neutrophils # 13.5 H Seg Neutrophils # Man Lymphocytes # (Manual) Monocytes # (Manual) Eosinophils # (Manual) Basophils # (Manual) PT INR Fibrinogen dRVVT Confirm Interp Factor V Activity POC ABG pH POC ABG pCO2 POC ABG pO2 ABG pO2 ABG HCO3 ABG Base Excess ABG Hemoglobin Oxyhemoglobin Sodium Potassium Chloride Carbon Dioxide BUN Creatinine Glucose POC Glucose Lactic Acid Calcium Phosphorus Magnesium Direct Bilirubin AST ALT Alkaline Phosphatase Lactate Dehydrogenase Troponin T C-Reactive Protein Total Protein Albumin Prealbumin Triglycerides Cholesterol LDL Cholesterol Direct HDL Cholesterol Urine pH Urine WBC (Auto) Urine Creatinine Urine Total Protein Fluid Total Protein Vancomycin Trough Rheumatoid Factor Complement C4 Miscellaneous Test Crossmatch See Detail 12/07/16 12/07/16 12/07/16 11:44 18:19 23:59 WBC RBC Hgb Hct MCV MCH MCHC RDW Plt Count Lymph % (Auto) [place] % (Auto) Lymph # [place] # Baso # Seg Neutrophils % Seg Neuts % (Manual) Lymphocytes % (Manual) Monocytes % (Manual) Eosinophils % (Manual) Basophils % (Manual) Nucleated RBC % Seg Neutrophils # Seg Neutrophils # Man Lymphocytes # (Manual) Monocytes # (Manual) Eosinophils # (Manual) Basophils # (Manual) PT INR Fibrinogen dRVVT Confirm Interp Factor V Activity POC ABG pH POC ABG pCO2 POC ABG pO2 ABG pO2 ABG HCO3 ABG Base Excess ABG Hemoglobin Oxyhemoglobin Sodium Potassium Chloride Carbon Dioxide BUN Creatinine Glucose POC Glucose 137 H 138 H 133 H Lactic Acid Calcium Phosphorus Magnesium Direct Bilirubin AST ALT Alkaline Phosphatase Lactate Dehydrogenase Troponin T C-Reactive Protein Total Protein Albumin Prealbumin Triglycerides Cholesterol LDL Cholesterol Direct HDL Cholesterol Urine pH Urine WBC (Auto) Urine Creatinine Urine Total Protein Fluid Total Protein Vancomycin Trough Rheumatoid Factor Complement C4 Miscellaneous Test Crossmatch 12/08/16 12/08/16 12/08/16 05:25 05:30 05:30 WBC 23.8 H RBC 2.88 L Hgb 8.1 L Hct 24.3 L MCV MCH MCHC RDW 16.7 H Plt Count Lymph % (Auto) [place] % (Auto) Lymph # [place] # Baso # Seg Neutrophils % Seg Neuts % (Manual) 76.0 H Lymphocytes % (Manual) 9.0 L Monocytes % (Manual) 9.0 H Eosinophils % (Manual) Basophils % (Manual) Nucleated RBC % Seg Neutrophils # Seg Neutrophils # Man 18.1 H Lymphocytes # (Manual) Monocytes # (Manual) 2.1 H Eosinophils # (Manual) Basophils # (Manual) PT INR Fibrinogen dRVVT Confirm Interp Factor V Activity POC ABG pH POC ABG pCO2 POC ABG pO2 ABG pO2 ABG HCO3 ABG Base Excess ABG Hemoglobin Oxyhemoglobin Sodium Potassium Chloride Carbon Dioxide 21 L BUN 76 H Creatinine 1.6 H Glucose 133 H POC Glucose 177 H Lactic Acid Calcium Phosphorus Magnesium Direct Bilirubin AST ALT Alkaline Phosphatase Lactate Dehydrogenase Troponin T C-Reactive Protein Total Protein Albumin Prealbumin Triglycerides Cholesterol LDL Cholesterol Direct HDL Cholesterol Urine pH Urine WBC (Auto) Urine Creatinine Urine Total Protein Fluid Total Protein Vancomycin Trough Rheumatoid Factor Complement C4 Miscellaneous Test Crossmatch 12/08/16 12/08/16 12/09/16 11:45 18:00 00:00 WBC RBC Hgb Hct MCV MCH MCHC RDW Plt Count Lymph % (Auto) [place] % (Auto) Lymph # [place] # Baso # Seg Neutrophils % Seg Neuts % (Manual) Lymphocytes % (Manual) Monocytes % (Manual) Eosinophils % (Manual) Basophils % (Manual) Nucleated RBC % Seg Neutrophils # Seg Neutrophils # Man Lymphocytes # (Manual) Monocytes # (Manual) Eosinophils # (Manual) Basophils # (Manual) PT INR Fibrinogen dRVVT Confirm Interp Factor V Activity POC ABG pH POC ABG pCO2 POC ABG pO2 ABG pO2 ABG HCO3 ABG Base Excess ABG Hemoglobin Oxyhemoglobin Sodium Potassium Chloride Carbon Dioxide BUN Creatinine Glucose POC Glucose 163 H 123 H 137 H Lactic Acid Calcium Phosphorus Magnesium Direct Bilirubin AST ALT Alkaline Phosphatase Lactate Dehydrogenase Troponin T C-Reactive Protein Total Protein Albumin Prealbumin Triglycerides Cholesterol LDL Cholesterol Direct HDL Cholesterol Urine pH Urine WBC (Auto) Urine Creatinine Urine Total Protein Fluid Total Protein Vancomycin Trough Rheumatoid Factor Complement C4 Miscellaneous Test Crossmatch 12/09/16 12/09/16 12/09/16 05:34 06:00 06:00 WBC 15.5 H RBC 2.87 L Hgb 8.0 L Hct 24.2 L MCV MCH MCHC RDW 17.2 H Plt Count Lymph % (Auto) [place] % (Auto) 11.6 H Lymph # [place] # 1.8 H Baso # Seg Neutrophils % 70.8 H Seg Neuts % (Manual) Lymphocytes % (Manual) Monocytes % (Manual) Eosinophils % (Manual) Basophils % (Manual) Nucleated RBC % Seg Neutrophils # 11.0 H Seg Neutrophils # Man Lymphocytes # (Manual) Monocytes # (Manual) Eosinophils # (Manual) Basophils # (Manual) PT INR Fibrinogen dRVVT Confirm Interp Factor V Activity POC ABG pH POC ABG pCO2 POC ABG pO2 ABG pO2 ABG HCO3 ABG Base Excess ABG Hemoglobin Oxyhemoglobin Sodium Potassium Chloride Carbon Dioxide BUN 51 H Creatinine Glucose 117 H POC Glucose 136 H Lactic Acid Calcium Phosphorus Magnesium Direct Bilirubin AST ALT Alkaline Phosphatase Lactate Dehydrogenase Troponin T C-Reactive Protein Total Protein Albumin Prealbumin Triglycerides Cholesterol LDL Cholesterol Direct HDL Cholesterol Urine pH Urine WBC (Auto) Urine Creatinine Urine Total Protein Fluid Total Protein Vancomycin Trough Rheumatoid Factor Complement C4 Miscellaneous Test Crossmatch 12/09/16 12/09/16 12/09/16 12:29 17:52 23:10 WBC RBC Hgb Hct MCV MCH MCHC RDW Plt Count Lymph % (Auto) [place] % (Auto) Lymph # [place] # Baso # Seg Neutrophils % Seg Neuts % (Manual) Lymphocytes % (Manual) Monocytes % (Manual) Eosinophils % (Manual) Basophils % (Manual) Nucleated RBC % Seg Neutrophils # Seg Neutrophils # Man Lymphocytes # (Manual) Monocytes # (Manual) Eosinophils # (Manual) Basophils # (Manual) PT INR Fibrinogen dRVVT Confirm Interp Factor V Activity POC ABG pH POC ABG pCO2 POC ABG pO2 ABG pO2 ABG HCO3 ABG Base Excess ABG Hemoglobin Oxyhemoglobin Sodium Potassium Chloride Carbon Dioxide BUN Creatinine Glucose POC Glucose 139 H 140 H 129 H Lactic Acid Calcium Phosphorus Magnesium Direct Bilirubin AST ALT Alkaline Phosphatase Lactate Dehydrogenase Troponin T C-Reactive Protein Total Protein Albumin Prealbumin Triglycerides Cholesterol LDL Cholesterol Direct HDL Cholesterol Urine pH Urine WBC (Auto) Urine Creatinine Urine Total Protein Fluid Total Protein Vancomycin Trough Rheumatoid Factor Complement C4 Miscellaneous Test Crossmatch 12/10/16 12/10/16 12/10/16 05:00 05:00 06:54 WBC 15.7 H RBC 2.87 L Hgb 8.2 L Hct 24.4 L MCV MCH MCHC RDW 17.2 H Plt Count Lymph % (Auto) [place] % (Auto) 8.3 H Lymph # [place] # 1.3 H Baso # Seg Neutrophils % 72.8 H Seg Neuts % (Manual) Lymphocytes % (Manual) Monocytes % (Manual) Eosinophils % (Manual) Basophils % (Manual) Nucleated RBC % Seg Neutrophils # 11.4 H Seg Neutrophils # Man Lymphocytes # (Manual) Monocytes # (Manual) Eosinophils # (Manual) Basophils # (Manual) PT INR Fibrinogen dRVVT Confirm Interp Factor V Activity POC ABG pH POC ABG pCO2 POC ABG pO2 ABG pO2 ABG HCO3 ABG Base Excess ABG Hemoglobin Oxyhemoglobin Sodium Potassium Chloride Carbon Dioxide BUN 64 H Creatinine 1.4 H Glucose 134 H POC Glucose 154 H Lactic Acid Calcium Phosphorus Magnesium Direct Bilirubin AST ALT Alkaline Phosphatase Lactate Dehydrogenase Troponin T C-Reactive Protein Total Protein Albumin Prealbumin Triglycerides Cholesterol LDL Cholesterol Direct HDL Cholesterol Urine pH Urine WBC (Auto) Urine Creatinine Urine Total Protein Fluid Total Protein Vancomycin Trough Rheumatoid Factor Complement C4 Miscellaneous Test Crossmatch 12/10/16 12/10/16 12/10/16 11:58 17:29 23:52 WBC RBC Hgb Hct MCV MCH MCHC RDW Plt Count Lymph % (Auto) [place] % (Auto) Lymph # [place] # Baso # Seg Neutrophils % Seg Neuts % (Manual) Lymphocytes % (Manual) Monocytes % (Manual) Eosinophils % (Manual) Basophils % (Manual) Nucleated RBC % Seg Neutrophils # Seg Neutrophils # Man Lymphocytes # (Manual) Monocytes # (Manual) Eosinophils # (Manual) Basophils # (Manual) PT INR Fibrinogen dRVVT Confirm Interp Factor V Activity POC ABG pH POC ABG pCO2 POC ABG pO2 ABG pO2 ABG HCO3 ABG Base Excess ABG Hemoglobin Oxyhemoglobin Sodium Potassium Chloride Carbon Dioxide BUN Creatinine Glucose POC Glucose 144 H 163 H 125 H Lactic Acid Calcium Phosphorus Magnesium Direct Bilirubin AST ALT Alkaline Phosphatase Lactate Dehydrogenase Troponin T C-Reactive Protein Total Protein Albumin Prealbumin Triglycerides Cholesterol LDL Cholesterol Direct HDL Cholesterol Urine pH Urine WBC (Auto) Urine Creatinine Urine Total Protein Fluid Total Protein Vancomycin Trough Rheumatoid Factor Complement C4 Miscellaneous Test Crossmatch 12/11/16 12/11/16 12/11/16 05:38 06:30 06:30 WBC 14.4 H RBC 2.76 L Hgb 7.7 L Hct 23.4 L MCV MCH MCHC RDW 17.2 H Plt Count Lymph % (Auto) [place] % (Auto) 8.8 H Lymph # [place] # 1.3 H Baso # Seg Neutrophils % 72.5 H Seg Neuts % (Manual) Lymphocytes % (Manual) Monocytes % (Manual) Eosinophils % (Manual) Basophils % (Manual) Nucleated RBC % Seg Neutrophils # 10.5 H Seg Neutrophils # Man Lymphocytes # (Manual) Monocytes # (Manual) Eosinophils # (Manual) Basophils # (Manual) PT INR Fibrinogen dRVVT Confirm Interp Factor V Activity POC ABG pH POC ABG pCO2 POC ABG pO2 ABG pO2 ABG HCO3 ABG Base Excess ABG Hemoglobin Oxyhemoglobin Sodium Potassium Chloride Carbon Dioxide BUN 43 H Creatinine Glucose 124 H POC Glucose 141 H Lactic Acid Calcium 8.3 L Phosphorus Magnesium 1.60 L Direct Bilirubin AST ALT Alkaline Phosphatase Lactate Dehydrogenase Troponin T C-Reactive Protein Total Protein Albumin Prealbumin Triglycerides Cholesterol LDL Cholesterol Direct HDL Cholesterol Urine pH Urine WBC (Auto) Urine Creatinine Urine Total Protein Fluid Total Protein Vancomycin Trough Rheumatoid Factor Complement C4 Miscellaneous Test Crossmatch 12/11/16 12/11/16 12/11/16 11:15 17:59 23:48 WBC RBC Hgb Hct MCV MCH MCHC RDW Plt Count Lymph % (Auto) [place] % (Auto) Lymph # [place] # Baso # Seg Neutrophils % Seg Neuts % (Manual) Lymphocytes % (Manual) Monocytes % (Manual) Eosinophils % (Manual) Basophils % (Manual) Nucleated RBC % Seg Neutrophils # Seg Neutrophils # Man Lymphocytes # (Manual) Monocytes # (Manual) Eosinophils # (Manual) Basophils # (Manual) PT INR Fibrinogen dRVVT Confirm Interp Factor V Activity POC ABG pH POC ABG pCO2 POC ABG pO2 ABG pO2 ABG HCO3 ABG Base Excess ABG Hemoglobin Oxyhemoglobin Sodium Potassium Chloride Carbon Dioxide BUN Creatinine Glucose POC Glucose 188 H 106 H 119 H Lactic Acid Calcium Phosphorus Magnesium Direct Bilirubin AST ALT Alkaline Phosphatase Lactate Dehydrogenase Troponin T C-Reactive Protein Total Protein Albumin Prealbumin Triglycerides Cholesterol LDL Cholesterol Direct HDL Cholesterol Urine pH Urine WBC (Auto) Urine Creatinine Urine Total Protein Fluid Total Protein Vancomycin Trough Rheumatoid Factor Complement C4 Miscellaneous Test Crossmatch 12/12/16 12/12/16 12/12/16 05:00 06:01 12:20 WBC 16.7 H RBC 2.87 L Hgb 8.0 L Hct 24.2 L MCV MCH MCHC RDW 17.6 H Plt Count Lymph % (Auto) [place] % (Auto) Lymph # [place] # 1.2 H Baso # Seg Neutrophils % 75.3 H Seg Neuts % (Manual) Lymphocytes % (Manual) Monocytes % (Manual) Eosinophils % (Manual) Basophils % (Manual) Nucleated RBC % Seg Neutrophils # 12.6 H Seg Neutrophils # Man Lymphocytes # (Manual) Monocytes # (Manual) Eosinophils # (Manual) Basophils # (Manual) PT INR Fibrinogen dRVVT Confirm Interp Factor V Activity POC ABG pH POC ABG pCO2 POC ABG pO2 ABG pO2 ABG HCO3 ABG Base Excess ABG Hemoglobin Oxyhemoglobin Sodium Potassium Chloride Carbon Dioxide BUN Creatinine Glucose POC Glucose 134 H 149 H Lactic Acid Calcium Phosphorus Magnesium Direct Bilirubin AST ALT Alkaline Phosphatase Lactate Dehydrogenase Troponin T C-Reactive Protein Total Protein Albumin Prealbumin Triglycerides Cholesterol LDL Cholesterol Direct HDL Cholesterol Urine pH Urine WBC (Auto) Urine Creatinine Urine Total Protein Fluid Total Protein Vancomycin Trough Rheumatoid Factor Complement C4 Miscellaneous Test Crossmatch 12/12/16 12/12/16 12/12/16 17:38 23:01 Unknown WBC RBC Hgb Hct MCV MCH MCHC RDW Plt Count Lymph % (Auto) [place] % (Auto) Lymph # [place] # Baso # Seg Neutrophils % Seg Neuts % (Manual) Lymphocytes % (Manual) Monocytes % (Manual) Eosinophils % (Manual) Basophils % (Manual) Nucleated RBC % Seg Neutrophils # Seg Neutrophils # Man Lymphocytes # (Manual) Monocytes # (Manual) Eosinophils # (Manual) Basophils # (Manual) PT INR Fibrinogen dRVVT Confirm Interp Factor V Activity POC ABG pH POC ABG pCO2 POC ABG pO2 ABG pO2 ABG HCO3 ABG Base Excess ABG Hemoglobin Oxyhemoglobin Sodium Potassium Chloride Carbon Dioxide BUN 60 H Creatinine 1.3 H Glucose 126 H POC Glucose 127 H 144 H Lactic Acid Calcium Phosphorus Magnesium Direct Bilirubin AST ALT Alkaline Phosphatase Lactate Dehydrogenase Troponin T C-Reactive Protein Total Protein Albumin Prealbumin Triglycerides Cholesterol LDL Cholesterol Direct HDL Cholesterol Urine pH Urine WBC (Auto) Urine Creatinine Urine Total Protein Fluid Total Protein Vancomycin Trough Rheumatoid Factor Complement C4 Miscellaneous Test Crossmatch 12/13/16 12/13/16 12/13/16 04:00 04:00 05:19 WBC 18.7 H RBC 2.89 L Hgb 8.3 L Hct 24.6 L MCV MCH MCHC RDW 17.5 H Plt Count Lymph % (Auto) [place] % (Auto) Lymph # [place] # 1.3 H Baso # Seg Neutrophils % 71.5 H Seg Neuts % (Manual) Lymphocytes % (Manual) Monocytes % (Manual) Eosinophils % (Manual) Basophils % (Manual) Nucleated RBC % Seg Neutrophils # 13.4 H Seg Neutrophils # Man Lymphocytes # (Manual) Monocytes # (Manual) Eosinophils # (Manual) Basophils # (Manual) PT INR Fibrinogen dRVVT Confirm Interp Factor V Activity POC ABG pH POC ABG pCO2 POC ABG pO2 ABG pO2 ABG HCO3 ABG Base Excess ABG Hemoglobin Oxyhemoglobin Sodium Potassium Chloride Carbon Dioxide BUN 73 H Creatinine 1.5 H Glucose 141 H POC Glucose 171 H Lactic Acid Calcium Phosphorus Magnesium Direct Bilirubin AST ALT Alkaline Phosphatase Lactate Dehydrogenase Troponin T C-Reactive Protein Total Protein Albumin Prealbumin Triglycerides Cholesterol LDL Cholesterol Direct HDL Cholesterol Urine pH Urine WBC (Auto) Urine Creatinine Urine Total Protein Fluid Total Protein Vancomycin Trough Rheumatoid Factor Complement C4 Miscellaneous Test Crossmatch 12/13/16 12/13/16 12/14/16 12:28 16:48 00:01 WBC RBC Hgb Hct MCV MCH MCHC RDW Plt Count Lymph % (Auto) [place] % (Auto) Lymph # [place] # Baso # Seg Neutrophils % Seg Neuts % (Manual) Lymphocytes % (Manual) Monocytes % (Manual) Eosinophils % (Manual) Basophils % (Manual) Nucleated RBC % Seg Neutrophils # Seg Neutrophils # Man Lymphocytes # (Manual) Monocytes # (Manual) Eosinophils # (Manual) Basophils # (Manual) PT INR Fibrinogen dRVVT Confirm Interp Factor V Activity POC ABG pH POC ABG pCO2 POC ABG pO2 ABG pO2 ABG HCO3 ABG Base Excess ABG Hemoglobin Oxyhemoglobin Sodium Potassium Chloride Carbon Dioxide BUN Creatinine Glucose POC Glucose 206 H 173 H 139 H Lactic Acid Calcium Phosphorus Magnesium Direct Bilirubin AST ALT Alkaline Phosphatase Lactate Dehydrogenase Troponin T C-Reactive Protein Total Protein Albumin Prealbumin Triglycerides Cholesterol LDL Cholesterol Direct HDL Cholesterol Urine pH Urine WBC (Auto) Urine Creatinine Urine Total Protein Fluid Total Protein Vancomycin Trough Rheumatoid Factor Complement C4 Miscellaneous Test Crossmatch 12/14/16 12/14/16 12/14/16 05:16 06:10 11:17 WBC RBC Hgb Hct MCV MCH MCHC RDW Plt Count Lymph % (Auto) [place] % (Auto) Lymph # [place] # Baso # Seg Neutrophils % Seg Neuts % (Manual) Lymphocytes % (Manual) Monocytes % (Manual) Eosinophils % (Manual) Basophils % (Manual) Nucleated RBC % Seg Neutrophils # Seg Neutrophils # Man Lymphocytes # (Manual) Monocytes # (Manual) Eosinophils # (Manual) Basophils # (Manual) PT INR Fibrinogen dRVVT Confirm Interp Factor V Activity POC ABG pH POC ABG pCO2 POC ABG pO2 ABG pO2 ABG HCO3 ABG Base Excess ABG Hemoglobin Oxyhemoglobin Sodium Potassium Chloride Carbon Dioxide BUN 57 H Creatinine 1.4 H Glucose 135 H POC Glucose 158 H 137 H Lactic Acid Calcium Phosphorus Magnesium Direct Bilirubin AST ALT Alkaline Phosphatase Lactate Dehydrogenase Troponin T C-Reactive Protein Total Protein Albumin Prealbumin Triglycerides Cholesterol LDL Cholesterol Direct HDL Cholesterol Urine pH Urine WBC (Auto) Urine Creatinine Urine Total Protein Fluid Total Protein Vancomycin Trough Rheumatoid Factor Complement C4 Miscellaneous Test Crossmatch 12/14/16 12/14/16 12/15/16 17:52 23:27 04:00 WBC RBC Hgb Hct MCV MCH MCHC RDW Plt Count Lymph % (Auto) [place] % (Auto) Lymph # [place] # Baso # Seg Neutrophils % Seg Neuts % (Manual) Lymphocytes % (Manual) Monocytes % (Manual) Eosinophils % (Manual) Basophils % (Manual) Nucleated RBC % Seg Neutrophils # Seg Neutrophils # Man Lymphocytes # (Manual) Monocytes # (Manual) Eosinophils # (Manual) Basophils # (Manual) PT INR Fibrinogen dRVVT Confirm Interp Factor V Activity POC ABG pH POC ABG pCO2 POC ABG pO2 ABG pO2 ABG HCO3 ABG Base Excess ABG Hemoglobin Oxyhemoglobin Sodium Potassium Chloride 97.9 L Carbon Dioxide BUN 75 H Creatinine 1.6 H Glucose 122 H POC Glucose 149 H 163 H Lactic Acid Calcium Phosphorus 5.20 H Magnesium Direct Bilirubin AST ALT Alkaline Phosphatase Lactate Dehydrogenase Troponin T C-Reactive Protein Total Protein Albumin Prealbumin Triglycerides Cholesterol LDL Cholesterol Direct HDL Cholesterol Urine pH Urine WBC (Auto) Urine Creatinine Urine Total Protein Fluid Total Protein Vancomycin Trough Rheumatoid Factor Complement C4 Miscellaneous Test Crossmatch 12/15/16 12/15/16 12/15/16 05:50 11:24 17:01 WBC RBC Hgb Hct MCV MCH MCHC RDW Plt Count Lymph % (Auto) [place] % (Auto) Lymph # [place] # Baso # Seg Neutrophils % Seg Neuts % (Manual) Lymphocytes % (Manual) Monocytes % (Manual) Eosinophils % (Manual) Basophils % (Manual) Nucleated RBC % Seg Neutrophils # Seg Neutrophils # Man Lymphocytes # (Manual) Monocytes # (Manual) Eosinophils # (Manual) Basophils # (Manual) PT INR Fibrinogen dRVVT Confirm Interp Factor V Activity POC ABG pH POC ABG pCO2 POC ABG pO2 ABG pO2 ABG HCO3 ABG Base Excess ABG Hemoglobin Oxyhemoglobin Sodium Potassium Chloride Carbon Dioxide BUN Creatinine Glucose POC Glucose 150 H 146 H 167 H Lactic Acid Calcium Phosphorus Magnesium Direct Bilirubin AST ALT Alkaline Phosphatase Lactate Dehydrogenase Troponin T C-Reactive Protein Total Protein Albumin Prealbumin Triglycerides Cholesterol LDL Cholesterol Direct HDL Cholesterol Urine pH Urine WBC (Auto) Urine Creatinine Urine Total Protein Fluid Total Protein Vancomycin Trough Rheumatoid Factor Complement C4 Miscellaneous Test Crossmatch 12/15/16 12/16/16 12/16/16 23:34 05:25 11:24 WBC RBC Hgb Hct MCV MCH MCHC RDW Plt Count Lymph % (Auto) [place] % (Auto) Lymph # [place] # Baso # Seg Neutrophils % Seg Neuts % (Manual) Lymphocytes % (Manual) Monocytes % (Manual) Eosinophils % (Manual) Basophils % (Manual) Nucleated RBC % Seg Neutrophils # Seg Neutrophils # Man Lymphocytes # (Manual) Monocytes # (Manual) Eosinophils # (Manual) Basophils # (Manual) PT INR Fibrinogen dRVVT Confirm Interp Factor V Activity POC ABG pH POC ABG pCO2 POC ABG pO2 ABG pO2 ABG HCO3 ABG Base Excess ABG Hemoglobin Oxyhemoglobin Sodium Potassium Chloride Carbon Dioxide BUN Creatinine Glucose POC Glucose 127 H 139 H 165 H Lactic Acid Calcium Phosphorus Magnesium Direct Bilirubin AST ALT Alkaline Phosphatase Lactate Dehydrogenase Troponin T C-Reactive Protein Total Protein Albumin Prealbumin Triglycerides Cholesterol LDL Cholesterol Direct HDL Cholesterol Urine pH Urine WBC (Auto) Urine Creatinine Urine Total Protein Fluid Total Protein Vancomycin Trough Rheumatoid Factor Complement C4 Miscellaneous Test Crossmatch 12/16/16 12/16/16 12/16/16 15:30 16:25 17:31 WBC 17.8 H RBC 2.38 L Hgb 6.4 L Hct 20.3 L MCV MCH 27 L MCHC RDW 17.4 H Plt Count Lymph % (Auto) [place] % (Auto) Lymph # [place] # Baso # Seg Neutrophils % Seg Neuts % (Manual) Lymphocytes % (Manual) Monocytes % (Manual) 10.0 H Eosinophils % (Manual) Basophils % (Manual) Nucleated RBC % Seg Neutrophils # Seg Neutrophils # Man 8.5 H Lymphocytes # (Manual) Monocytes # (Manual) 1.8 H Eosinophils # (Manual) Basophils # (Manual) PT INR Fibrinogen dRVVT Confirm Interp Factor V Activity POC ABG pH POC ABG pCO2 POC ABG pO2 ABG pO2 ABG HCO3 ABG Base Excess ABG Hemoglobin Oxyhemoglobin Sodium Potassium Chloride Carbon Dioxide BUN Creatinine Glucose POC Glucose 176 H Lactic Acid Calcium Phosphorus Magnesium Direct Bilirubin AST ALT Alkaline Phosphatase Lactate Dehydrogenase Troponin T C-Reactive Protein Total Protein Albumin Prealbumin Triglycerides Cholesterol LDL Cholesterol Direct HDL Cholesterol Urine pH Urine WBC (Auto) Urine Creatinine Urine Total Protein Fluid Total Protein Vancomycin Trough Rheumatoid Factor Complement C4 Miscellaneous Test Crossmatch See Detail 12/17/16 12/17/16 12/17/16 00:14 04:00 05:00 WBC 20.0 H RBC 2.99 L Hgb 8.5 L Hct 25.7 L MCV MCH MCHC RDW 17.2 H Plt Count Lymph % (Auto) [place] % (Auto) Lymph # [place] # Baso # Seg Neutrophils % Seg Neuts % (Manual) Lymphocytes % (Manual) Monocytes % (Manual) Eosinophils % (Manual) Basophils % (Manual) Nucleated RBC % Seg Neutrophils # Seg Neutrophils # Man Lymphocytes # (Manual) Monocytes # (Manual) Eosinophils # (Manual) Basophils # (Manual) PT INR Fibrinogen dRVVT Confirm Interp Factor V Activity POC ABG pH POC ABG pCO2 POC ABG pO2 ABG pO2 ABG HCO3 ABG Base Excess ABG Hemoglobin Oxyhemoglobin Sodium Potassium Chloride 97.7 L Carbon Dioxide BUN 73 H Creatinine 1.7 H Glucose 136 H POC Glucose 148 H Lactic Acid Calcium Phosphorus 2.20 L Magnesium 2.70 H Direct Bilirubin AST ALT Alkaline Phosphatase Lactate Dehydrogenase Troponin T C-Reactive Protein Total Protein Albumin Prealbumin Triglycerides Cholesterol LDL Cholesterol Direct HDL Cholesterol Urine pH Urine WBC (Auto) Urine Creatinine Urine Total Protein Fluid Total Protein Vancomycin Trough Rheumatoid Factor Complement C4 Miscellaneous Test Crossmatch 12/17/16 12/17/16 12/17/16 05:39 12:50 16:32 WBC RBC Hgb Hct MCV MCH MCHC RDW Plt Count Lymph % (Auto) [place] % (Auto) Lymph # [place] # Baso # Seg Neutrophils % Seg Neuts % (Manual) Lymphocytes % (Manual) Monocytes % (Manual) Eosinophils % (Manual) Basophils % (Manual) Nucleated RBC % Seg Neutrophils # Seg Neutrophils # Man Lymphocytes # (Manual) Monocytes # (Manual) Eosinophils # (Manual) Basophils # (Manual) PT INR Fibrinogen dRVVT Confirm Interp Factor V Activity POC ABG pH POC ABG pCO2 POC ABG pO2 ABG pO2 ABG HCO3 ABG Base Excess ABG Hemoglobin Oxyhemoglobin Sodium Potassium Chloride Carbon Dioxide BUN Creatinine Glucose POC Glucose 162 H 146 H 169 H Lactic Acid Calcium Phosphorus Magnesium Direct Bilirubin AST ALT Alkaline Phosphatase Lactate Dehydrogenase Troponin T C-Reactive Protein Total Protein Albumin Prealbumin Triglycerides Cholesterol LDL Cholesterol Direct HDL Cholesterol Urine pH Urine WBC (Auto) Urine Creatinine Urine Total Protein Fluid Total Protein Vancomycin Trough Rheumatoid Factor Complement C4 Miscellaneous Test Crossmatch 12/17/16 12/18/16 12/18/16 23:57 05:00 05:32 WBC RBC Hgb Hct MCV MCH MCHC RDW Plt Count Lymph % (Auto) [place] % (Auto) Lymph # [place] # Baso # Seg Neutrophils % Seg Neuts % (Manual) Lymphocytes % (Manual) Monocytes % (Manual) Eosinophils % (Manual) Basophils % (Manual) Nucleated RBC % Seg Neutrophils # Seg Neutrophils # Man Lymphocytes # (Manual) Monocytes # (Manual) Eosinophils # (Manual) Basophils # (Manual) PT INR Fibrinogen dRVVT Confirm Interp Factor V Activity POC ABG pH POC ABG pCO2 POC ABG pO2 ABG pO2 ABG HCO3 ABG Base Excess ABG Hemoglobin Oxyhemoglobin Sodium Potassium Chloride 97.0 L Carbon Dioxide BUN 63 H Creatinine 1.4 H Glucose 174 H POC Glucose 145 H 201 H Lactic Acid Calcium Phosphorus 1.70 L D Magnesium Direct Bilirubin AST ALT Alkaline Phosphatase 257 H Lactate Dehydrogenase Troponin T C-Reactive Protein Total Protein 5.9 L Albumin 1.8 L Prealbumin Triglycerides Cholesterol LDL Cholesterol Direct HDL Cholesterol Urine pH Urine WBC (Auto) Urine Creatinine Urine Total Protein Fluid Total Protein Vancomycin Trough Rheumatoid Factor Complement C4 Miscellaneous Test Crossmatch 12/18/16 12/18/16 12/18/16 11:43 16:52 23:52 WBC RBC Hgb Hct MCV MCH MCHC RDW Plt Count Lymph % (Auto) [place] % (Auto) Lymph # [place] # Baso # Seg Neutrophils % Seg Neuts % (Manual) Lymphocytes % (Manual) Monocytes % (Manual) Eosinophils % (Manual) Basophils % (Manual) Nucleated RBC % Seg Neutrophils # Seg Neutrophils # Man Lymphocytes # (Manual) Monocytes # (Manual) Eosinophils # (Manual) Basophils # (Manual) PT INR Fibrinogen dRVVT Confirm Interp Factor V Activity POC ABG pH POC ABG pCO2 POC ABG pO2 ABG pO2 ABG HCO3 ABG Base Excess ABG Hemoglobin Oxyhemoglobin Sodium Potassium Chloride Carbon Dioxide BUN Creatinine Glucose POC Glucose 177 H 110 H 162 H Lactic Acid Calcium Phosphorus Magnesium Direct Bilirubin AST ALT Alkaline Phosphatase Lactate Dehydrogenase Troponin T C-Reactive Protein Total Protein Albumin Prealbumin Triglycerides Cholesterol LDL Cholesterol Direct HDL Cholesterol Urine pH Urine WBC (Auto) Urine Creatinine Urine Total Protein Fluid Total Protein Vancomycin Trough Rheumatoid Factor Complement C4 Miscellaneous Test Crossmatch 12/19/16 12/19/16 12/19/16 05:02 05:24 09:30 WBC 20.1 H RBC 2.73 L Hgb 7.6 L Hct 23.6 L MCV MCH MCHC RDW 17.6 H Plt Count Lymph % (Auto) [place] % (Auto) Lymph # [place] # Baso # Seg Neutrophils % Seg Neuts % (Manual) Lymphocytes % (Manual) 13.0 L Monocytes % (Manual) Eosinophils % (Manual) Basophils % (Manual) Nucleated RBC % 1.0 H Seg Neutrophils # Seg Neutrophils # Man 12.9 H Lymphocytes # (Manual) Monocytes # (Manual) 1.4 H Eosinophils # (Manual) Basophils # (Manual) 0.2 H PT INR Fibrinogen dRVVT Confirm Interp Factor V Activity POC ABG pH POC ABG pCO2 POC ABG pO2 ABG pO2 ABG HCO3 ABG Base Excess ABG Hemoglobin Oxyhemoglobin Sodium Potassium Chloride 97.8 L Carbon Dioxide BUN 84 H Creatinine 1.6 H Glucose 133 H POC Glucose 134 H Lactic Acid Calcium Phosphorus Magnesium Direct Bilirubin AST ALT Alkaline Phosphatase Lactate Dehydrogenase Troponin T C-Reactive Protein Total Protein Albumin Prealbumin Triglycerides Cholesterol LDL Cholesterol Direct HDL Cholesterol Urine pH Urine WBC (Auto) Urine Creatinine Urine Total Protein Fluid Total Protein Vancomycin Trough Rheumatoid Factor Complement C4 Miscellaneous Test Crossmatch 12/19/16 12/19/16 12/19/16 09:36 11:12 18:29 WBC RBC Hgb Hct MCV MCH MCHC RDW Plt Count Lymph % (Auto) [place] % (Auto) Lymph # [place] # Baso # Seg Neutrophils % Seg Neuts % (Manual) Lymphocytes % (Manual) Monocytes % (Manual) Eosinophils % (Manual) Basophils % (Manual) Nucleated RBC % Seg Neutrophils # Seg Neutrophils # Man Lymphocytes # (Manual) Monocytes # (Manual) Eosinophils # (Manual) Basophils # (Manual) PT INR Fibrinogen dRVVT Confirm Interp Factor V Activity POC ABG pH 7.503 H POC ABG pCO2 30.1 L POC ABG pO2 ABG pO2 ABG HCO3 ABG Base Excess ABG Hemoglobin Oxyhemoglobin Sodium Potassium Chloride Carbon Dioxide BUN Creatinine Glucose POC Glucose 138 H 156 H Lactic Acid Calcium Phosphorus Magnesium Direct Bilirubin AST ALT Alkaline Phosphatase Lactate Dehydrogenase Troponin T C-Reactive Protein Total Protein Albumin Prealbumin Triglycerides Cholesterol LDL Cholesterol Direct HDL Cholesterol Urine pH Urine WBC (Auto) Urine Creatinine Urine Total Protein Fluid Total Protein Vancomycin Trough Rheumatoid Factor Complement C4 Miscellaneous Test Crossmatch 12/20/16 12/20/16 12/20/16 00:03 06:17 07:07 WBC RBC Hgb Hct MCV MCH MCHC RDW Plt Count Lymph % (Auto) [place] % (Auto) Lymph # [place] # Baso # Seg Neutrophils % Seg Neuts % (Manual) Lymphocytes % (Manual) Monocytes % (Manual) Eosinophils % (Manual) Basophils % (Manual) Nucleated RBC % Seg Neutrophils # Seg Neutrophils # Man Lymphocytes # (Manual) Monocytes # (Manual) Eosinophils # (Manual) Basophils # (Manual) PT INR Fibrinogen dRVVT Confirm Interp Factor V Activity POC ABG pH POC ABG pCO2 POC ABG pO2 ABG pO2 ABG HCO3 ABG Base Excess ABG Hemoglobin Oxyhemoglobin Sodium Potassium Chloride 97.1 L Carbon Dioxide 20 L BUN 97 H Creatinine 1.8 H Glucose 153 H POC Glucose 152 H 175 H Lactic Acid Calcium Phosphorus Magnesium Direct Bilirubin AST ALT Alkaline Phosphatase Lactate Dehydrogenase Troponin T C-Reactive Protein Total Protein Albumin Prealbumin Triglycerides Cholesterol LDL Cholesterol Direct HDL Cholesterol Urine pH Urine WBC (Auto) Urine Creatinine Urine Total Protein Fluid Total Protein Vancomycin Trough Rheumatoid Factor Complement C4 Miscellaneous Test Crossmatch 12/20/16 12/20/16 12/20/16 12:00 17:42 23:53 WBC RBC Hgb Hct MCV MCH MCHC RDW Plt Count Lymph % (Auto) [place] % (Auto) Lymph # [place] # Baso # Seg Neutrophils % Seg Neuts % (Manual) Lymphocytes % (Manual) Monocytes % (Manual) Eosinophils % (Manual) Basophils % (Manual) Nucleated RBC % Seg Neutrophils # Seg Neutrophils # Man Lymphocytes # (Manual) Monocytes # (Manual) Eosinophils # (Manual) Basophils # (Manual) PT INR Fibrinogen dRVVT Confirm Interp Factor V Activity POC ABG pH POC ABG pCO2 POC ABG pO2 ABG pO2 ABG HCO3 ABG Base Excess ABG Hemoglobin Oxyhemoglobin Sodium Potassium Chloride Carbon Dioxide BUN Creatinine Glucose POC Glucose 141 H 156 H 132 H Lactic Acid Calcium Phosphorus Magnesium Direct Bilirubin AST ALT Alkaline Phosphatase Lactate Dehydrogenase Troponin T C-Reactive Protein Total Protein Albumin Prealbumin Triglycerides Cholesterol LDL Cholesterol Direct HDL Cholesterol Urine pH Urine WBC (Auto) Urine Creatinine Urine Total Protein Fluid Total Protein Vancomycin Trough Rheumatoid Factor Complement C4 Miscellaneous Test Crossmatch 12/21/16 12/21/16 12/21/16 05:49 08:50 12:19 WBC RBC Hgb Hct MCV MCH MCHC RDW Plt Count Lymph % (Auto) [place] % (Auto) Lymph # [place] # Baso # Seg Neutrophils % Seg Neuts % (Manual) Lymphocytes % (Manual) Monocytes % (Manual) Eosinophils % (Manual) Basophils % (Manual) Nucleated RBC % Seg Neutrophils # Seg Neutrophils # Man Lymphocytes # (Manual) Monocytes # (Manual) Eosinophils # (Manual) Basophils # (Manual) PT INR Fibrinogen dRVVT Confirm Interp Factor V Activity POC ABG pH POC ABG pCO2 POC ABG pO2 ABG pO2 ABG HCO3 ABG Base Excess ABG Hemoglobin Oxyhemoglobin Sodium Potassium 5.2 H D Chloride Carbon Dioxide BUN 63 H Creatinine Glucose 122 H POC Glucose 132 H 136 H Lactic Acid Calcium 8.3 L Phosphorus Magnesium Direct Bilirubin AST ALT Alkaline Phosphatase Lactate Dehydrogenase Troponin T C-Reactive Protein Total Protein Albumin Prealbumin Triglycerides Cholesterol LDL Cholesterol Direct HDL Cholesterol Urine pH Urine WBC (Auto) Urine Creatinine Urine Total Protein Fluid Total Protein Vancomycin Trough Rheumatoid Factor Complement C4 Miscellaneous Test Crossmatch 12/21/16 12/21/16 12/22/16 17:22 23:58 05:49 WBC RBC Hgb Hct MCV MCH MCHC RDW Plt Count Lymph % (Auto) [place] % (Auto) Lymph # [place] # Baso # Seg Neutrophils % Seg Neuts % (Manual) Lymphocytes % (Manual) Monocytes % (Manual) Eosinophils % (Manual) Basophils % (Manual) Nucleated RBC % Seg Neutrophils # Seg Neutrophils # Man Lymphocytes # (Manual) Monocytes # (Manual) Eosinophils # (Manual) Basophils # (Manual) PT INR Fibrinogen dRVVT Confirm Interp Factor V Activity POC ABG pH POC ABG pCO2 POC ABG pO2 ABG pO2 ABG HCO3 ABG Base Excess ABG Hemoglobin Oxyhemoglobin Sodium Potassium Chloride Carbon Dioxide BUN Creatinine Glucose POC Glucose 135 H 149 H 140 H Lactic Acid Calcium Phosphorus Magnesium Direct Bilirubin AST ALT Alkaline Phosphatase Lactate Dehydrogenase Troponin T C-Reactive Protein Total Protein Albumin Prealbumin Triglycerides Cholesterol LDL Cholesterol Direct HDL Cholesterol Urine pH Urine WBC (Auto) Urine Creatinine Urine Total Protein Fluid Total Protein Vancomycin Trough Rheumatoid Factor Complement C4 Miscellaneous Test Crossmatch 12/22/16 12/22/16 12/22/16 06:10 11:17 17:31 WBC RBC Hgb Hct MCV MCH MCHC RDW Plt Count Lymph % (Auto) [place] % (Auto) Lymph # [place] # Baso # Seg Neutrophils % Seg Neuts % (Manual) Lymphocytes % (Manual) Monocytes % (Manual) Eosinophils % (Manual) Basophils % (Manual) Nucleated RBC % Seg Neutrophils # Seg Neutrophils # Man Lymphocytes # (Manual) Monocytes # (Manual) Eosinophils # (Manual) Basophils # (Manual) PT INR Fibrinogen dRVVT Confirm Interp Factor V Activity POC ABG pH POC ABG pCO2 POC ABG pO2 ABG pO2 ABG HCO3 ABG Base Excess ABG Hemoglobin Oxyhemoglobin Sodium Potassium Chloride Carbon Dioxide BUN 76 H Creatinine 1.5 H Glucose 241 H POC Glucose 193 H 148 H Lactic Acid Calcium Phosphorus Magnesium Direct Bilirubin AST ALT Alkaline Phosphatase Lactate Dehydrogenase Troponin T C-Reactive Protein Total Protein Albumin Prealbumin Triglycerides Cholesterol LDL Cholesterol Direct HDL Cholesterol Urine pH Urine WBC (Auto) Urine Creatinine Urine Total Protein Fluid Total Protein Vancomycin Trough Rheumatoid Factor Complement C4 Miscellaneous Test Crossmatch 12/22/16 12/23/16 12/23/16 23:58 05:00 05:26 WBC RBC Hgb Hct MCV MCH MCHC RDW Plt Count Lymph % (Auto) [place] % (Auto) Lymph # [place] # Baso # Seg Neutrophils % Seg Neuts % (Manual) Lymphocytes % (Manual) Monocytes % (Manual) Eosinophils % (Manual) Basophils % (Manual) Nucleated RBC % Seg Neutrophils # Seg Neutrophils # Man Lymphocytes # (Manual) Monocytes # (Manual) Eosinophils # (Manual) Basophils # (Manual) PT INR Fibrinogen dRVVT Confirm Interp Factor V Activity POC ABG pH POC ABG pCO2 POC ABG pO2 ABG pO2 ABG HCO3 ABG Base Excess ABG Hemoglobin Oxyhemoglobin Sodium Potassium Chloride Carbon Dioxide BUN 49 H Creatinine Glucose 143 H POC Glucose 165 H 154 H Lactic Acid Calcium 8.2 L Phosphorus Magnesium 1.60 L Direct Bilirubin AST ALT Alkaline Phosphatase Lactate Dehydrogenase Troponin T C-Reactive Protein Total Protein Albumin Prealbumin Triglycerides Cholesterol LDL Cholesterol Direct HDL Cholesterol Urine pH Urine WBC (Auto) Urine Creatinine Urine Total Protein Fluid Total Protein Vancomycin Trough Rheumatoid Factor Complement C4 Miscellaneous Test Crossmatch 12/23/16 12/23/16 12/24/16 12:35 17:01 00:01 WBC RBC Hgb Hct MCV MCH MCHC RDW Plt Count Lymph % (Auto) [place] % (Auto) Lymph # [place] # Baso # Seg Neutrophils % Seg Neuts % (Manual) Lymphocytes % (Manual) Monocytes % (Manual) Eosinophils % (Manual) Basophils % (Manual) Nucleated RBC % Seg Neutrophils # Seg Neutrophils # Man Lymphocytes # (Manual) Monocytes # (Manual) Eosinophils # (Manual) Basophils # (Manual) PT INR Fibrinogen dRVVT Confirm Interp Factor V Activity POC ABG pH POC ABG pCO2 POC ABG pO2 ABG pO2 ABG HCO3 ABG Base Excess ABG Hemoglobin Oxyhemoglobin Sodium Potassium Chloride Carbon Dioxide BUN Creatinine Glucose POC Glucose 164 H 149 H 135 H Lactic Acid Calcium Phosphorus Magnesium Direct Bilirubin AST ALT Alkaline Phosphatase Lactate Dehydrogenase Troponin T C-Reactive Protein Total Protein Albumin Prealbumin Triglycerides Cholesterol LDL Cholesterol Direct HDL Cholesterol Urine pH Urine WBC (Auto) Urine Creatinine Urine Total Protein Fluid Total Protein Vancomycin Trough Rheumatoid Factor Complement C4 Miscellaneous Test Crossmatch 12/24/16 12/24/16 12/24/16 05:41 07:01 11:38 WBC RBC Hgb Hct MCV MCH MCHC RDW Plt Count Lymph % (Auto) [place] % (Auto) Lymph # [place] # Baso # Seg Neutrophils % Seg Neuts % (Manual) Lymphocytes % (Manual) Monocytes % (Manual) Eosinophils % (Manual) Basophils % (Manual) Nucleated RBC % Seg Neutrophils # Seg Neutrophils # Man Lymphocytes # (Manual) Monocytes # (Manual) Eosinophils # (Manual) Basophils # (Manual) PT INR Fibrinogen dRVVT Confirm Interp Factor V Activity POC ABG pH POC ABG pCO2 POC ABG pO2 ABG pO2 ABG HCO3 ABG Base Excess ABG Hemoglobin Oxyhemoglobin Sodium Potassium Chloride Carbon Dioxide BUN 72 H Creatinine 1.3 H Glucose 130 H POC Glucose 132 H 156 H Lactic Acid Calcium 8.2 L Phosphorus Magnesium Direct Bilirubin AST ALT Alkaline Phosphatase Lactate Dehydrogenase Troponin T C-Reactive Protein Total Protein Albumin Prealbumin Triglycerides Cholesterol LDL Cholesterol Direct HDL Cholesterol Urine pH Urine WBC (Auto) Urine Creatinine Urine Total Protein Fluid Total Protein Vancomycin Trough Rheumatoid Factor Complement C4 Miscellaneous Test Crossmatch 12/24/16 12/25/16 12/25/16 17:53 00:23 05:45 WBC RBC Hgb Hct MCV MCH MCHC RDW Plt Count Lymph % (Auto) [place] % (Auto) Lymph # [place] # Baso # Seg Neutrophils % Seg Neuts % (Manual) Lymphocytes % (Manual) Monocytes % (Manual) Eosinophils % (Manual) Basophils % (Manual) Nucleated RBC % Seg Neutrophils # Seg Neutrophils # Man Lymphocytes # (Manual) Monocytes # (Manual) Eosinophils # (Manual) Basophils # (Manual) PT INR Fibrinogen dRVVT Confirm Interp Factor V Activity POC ABG pH POC ABG pCO2 POC ABG pO2 ABG pO2 ABG HCO3 ABG Base Excess ABG Hemoglobin Oxyhemoglobin Sodium 146 H Potassium Chloride Carbon Dioxide BUN 51 H Creatinine Glucose 109 H POC Glucose 169 H 117 H Lactic Acid Calcium Phosphorus Magnesium Direct Bilirubin AST ALT Alkaline Phosphatase Lactate Dehydrogenase Troponin T C-Reactive Protein Total Protein Albumin Prealbumin Triglycerides Cholesterol LDL Cholesterol Direct HDL Cholesterol Urine pH Urine WBC (Auto) Urine Creatinine Urine Total Protein Fluid Total Protein Vancomycin Trough Rheumatoid Factor Complement C4 Miscellaneous Test Crossmatch 12/25/16 12/25/16 12/25/16 06:43 11:29 17:14 WBC RBC Hgb Hct MCV MCH MCHC RDW Plt Count Lymph % (Auto) [place] % (Auto) Lymph # [place] # Baso # Seg Neutrophils % Seg Neuts % (Manual) Lymphocytes % (Manual) Monocytes % (Manual) Eosinophils % (Manual) Basophils % (Manual) Nucleated RBC % Seg Neutrophils # Seg Neutrophils # Man Lymphocytes # (Manual) Monocytes # (Manual) Eosinophils # (Manual) Basophils # (Manual) PT INR Fibrinogen dRVVT Confirm Interp Factor V Activity POC ABG pH POC ABG pCO2 POC ABG pO2 ABG pO2 ABG HCO3 ABG Base Excess ABG Hemoglobin Oxyhemoglobin Sodium Potassium Chloride Carbon Dioxide BUN Creatinine Glucose POC Glucose 117 H 128 H 120 H Lactic Acid Calcium Phosphorus Magnesium Direct Bilirubin AST ALT Alkaline Phosphatase Lactate Dehydrogenase Troponin T C-Reactive Protein Total Protein Albumin Prealbumin Triglycerides Cholesterol LDL Cholesterol Direct HDL Cholesterol Urine pH Urine WBC (Auto) Urine Creatinine Urine Total Protein Fluid Total Protein Vancomycin Trough Rheumatoid Factor Complement C4 Miscellaneous Test Crossmatch 12/25/16 12/26/16 12/26/16 23:54 05:40 05:50 WBC 16.2 H RBC 2.32 L Hgb 6.2 L Hct 20.1 L MCV MCH 27 L MCHC RDW 18.6 H Plt Count Lymph % (Auto) [place] % (Auto) Lymph # [place] # Baso # Seg Neutrophils % Seg Neuts % (Manual) Lymphocytes % (Manual) Monocytes % (Manual) Eosinophils % (Manual) Basophils % (Manual) Nucleated RBC % Seg Neutrophils # Seg Neutrophils # Man Lymphocytes # (Manual) Monocytes # (Manual) Eosinophils # (Manual) Basophils # (Manual) PT INR Fibrinogen dRVVT Confirm Interp Factor V Activity POC ABG pH POC ABG pCO2 POC ABG pO2 ABG pO2 ABG HCO3 ABG Base Excess ABG Hemoglobin Oxyhemoglobin Sodium Potassium Chloride Carbon Dioxide BUN Creatinine Glucose POC Glucose 126 H 132 H Lactic Acid Calcium Phosphorus Magnesium Direct Bilirubin AST ALT Alkaline Phosphatase Lactate Dehydrogenase Troponin T C-Reactive Protein Total Protein Albumin Prealbumin Triglycerides Cholesterol LDL Cholesterol Direct HDL Cholesterol Urine pH Urine WBC (Auto) Urine Creatinine Urine Total Protein Fluid Total Protein Vancomycin Trough Rheumatoid Factor Complement C4 Miscellaneous Test Crossmatch 12/26/16 12/26/16 12/26/16 05:50 12:17 12:33 WBC RBC Hgb Hct MCV MCH MCHC RDW Plt Count Lymph % (Auto) [place] % (Auto) Lymph # [place] # Baso # Seg Neutrophils % Seg Neuts % (Manual) Lymphocytes % (Manual) Monocytes % (Manual) Eosinophils % (Manual) Basophils % (Manual) Nucleated RBC % Seg Neutrophils # Seg Neutrophils # Man Lymphocytes # (Manual) Monocytes # (Manual) Eosinophils # (Manual) Basophils # (Manual) PT INR Fibrinogen dRVVT Confirm Interp Factor V Activity POC ABG pH POC ABG pCO2 POC ABG pO2 ABG pO2 ABG HCO3 ABG Base Excess ABG Hemoglobin Oxyhemoglobin Sodium Potassium Chloride Carbon Dioxide BUN 73 H Creatinine 1.3 H Glucose 113 H POC Glucose 117 H Lactic Acid Calcium Phosphorus Magnesium Direct Bilirubin AST ALT Alkaline Phosphatase Lactate Dehydrogenase Troponin T C-Reactive Protein Total Protein Albumin Prealbumin Triglycerides Cholesterol LDL Cholesterol Direct HDL Cholesterol Urine pH Urine WBC (Auto) Urine Creatinine Urine Total Protein Fluid Total Protein Vancomycin Trough Rheumatoid Factor Complement C4 Miscellaneous Test Crossmatch See Detail 12/26/16 12/26/16 12/27/16 20:00 23:21 05:00 WBC RBC Hgb 8.4 L Hct 26.3 L D MCV MCH MCHC RDW Plt Count Lymph % (Auto) [place] % (Auto) Lymph # [place] # Baso # Seg Neutrophils % Seg Neuts % (Manual) Lymphocytes % (Manual) Monocytes % (Manual) Eosinophils % (Manual) Basophils % (Manual) Nucleated RBC % Seg Neutrophils # Seg Neutrophils # Man Lymphocytes # (Manual) Monocytes # (Manual) Eosinophils # (Manual) Basophils # (Manual) PT INR Fibrinogen dRVVT Confirm Interp Factor V Activity POC ABG pH POC ABG pCO2 POC ABG pO2 ABG pO2 ABG HCO3 ABG Base Excess ABG Hemoglobin Oxyhemoglobin Sodium Potassium Chloride Carbon Dioxide BUN 85 H Creatinine 1.6 H Glucose 118 H POC Glucose 124 H Lactic Acid Calcium Phosphorus 4.80 H Magnesium Direct Bilirubin AST ALT Alkaline Phosphatase Lactate Dehydrogenase Troponin T C-Reactive Protein Total Protein Albumin Prealbumin Triglycerides Cholesterol LDL Cholesterol Direct HDL Cholesterol Urine pH Urine WBC (Auto) Urine Creatinine Urine Total Protein Fluid Total Protein Vancomycin Trough Rheumatoid Factor Complement C4 Miscellaneous Test Crossmatch 12/27/16 12/27/16 12/27/16 05:00 05:35 12:24 WBC RBC Hgb 7.6 L Hct 22.8 L MCV MCH MCHC RDW Plt Count Lymph % (Auto) [place] % (Auto) Lymph # [place] # Baso # Seg Neutrophils % Seg Neuts % (Manual) Lymphocytes % (Manual) Monocytes % (Manual) Eosinophils % (Manual) Basophils % (Manual) Nucleated RBC % Seg Neutrophils # Seg Neutrophils # Man Lymphocytes # (Manual) Monocytes # (Manual) Eosinophils # (Manual) Basophils # (Manual) PT INR Fibrinogen dRVVT Confirm Interp Factor V Activity POC ABG pH POC ABG pCO2 POC ABG pO2 ABG pO2 ABG HCO3 ABG Base Excess ABG Hemoglobin Oxyhemoglobin Sodium Potassium Chloride Carbon Dioxide BUN Creatinine Glucose POC Glucose 115 H 131 H Lactic Acid Calcium Phosphorus Magnesium Direct Bilirubin AST ALT Alkaline Phosphatase Lactate Dehydrogenase Troponin T C-Reactive Protein Total Protein Albumin Prealbumin Triglycerides Cholesterol LDL Cholesterol Direct HDL Cholesterol Urine pH Urine WBC (Auto) Urine Creatinine Urine Total Protein Fluid Total Protein Vancomycin Trough Rheumatoid Factor Complement C4 Miscellaneous Test Crossmatch 12/27/16 12/28/16 12/28/16 17:16 00:18 04:00 WBC RBC Hgb Hct MCV MCH MCHC RDW Plt Count Lymph % (Auto) [place] % (Auto) Lymph # [place] # Baso # Seg Neutrophils % Seg Neuts % (Manual) Lymphocytes % (Manual) Monocytes % (Manual) Eosinophils % (Manual) Basophils % (Manual) Nucleated RBC % Seg Neutrophils # Seg Neutrophils # Man Lymphocytes # (Manual) Monocytes # (Manual) Eosinophils # (Manual) Basophils # (Manual) PT INR Fibrinogen dRVVT Confirm Interp Factor V Activity POC ABG pH POC ABG pCO2 POC ABG pO2 ABG pO2 ABG HCO3 ABG Base Excess ABG Hemoglobin Oxyhemoglobin Sodium Potassium 3.5 L Chloride Carbon Dioxide BUN 57 H Creatinine Glucose 118 H POC Glucose 136 H 120 H Lactic Acid Calcium 8.3 L Phosphorus Magnesium Direct Bilirubin AST ALT Alkaline Phosphatase Lactate Dehydrogenase Troponin T C-Reactive Protein Total Protein Albumin Prealbumin Triglycerides Cholesterol LDL Cholesterol Direct HDL Cholesterol Urine pH Urine WBC (Auto) Urine Creatinine Urine Total Protein Fluid Total Protein Vancomycin Trough Rheumatoid Factor Complement C4 Miscellaneous Test Crossmatch 12/28/16 12/28/16 12/28/16 04:00 05:11 08:30 WBC 17.0 H RBC 2.58 L Hgb 7.1 L Hct 22.0 L MCV MCH MCHC RDW 17.6 H Plt Count Lymph % (Auto) 12.2 L [place] % (Auto) Lymph # [place] # 1.1 H Baso # Seg Neutrophils % 80.5 H Seg Neuts % (Manual) Lymphocytes % (Manual) Monocytes % (Manual) Eosinophils % (Manual) Basophils % (Manual) Nucleated RBC % Seg Neutrophils # 13.7 H Seg Neutrophils # Man Lymphocytes # (Manual) Monocytes # (Manual) Eosinophils # (Manual) Basophils # (Manual) PT 16.1 H INR 1.23 H Fibrinogen dRVVT Confirm Interp Factor V Activity POC ABG pH POC ABG pCO2 POC ABG pO2 ABG pO2 ABG HCO3 ABG Base Excess ABG Hemoglobin Oxyhemoglobin Sodium Potassium Chloride Carbon Dioxide BUN Creatinine Glucose POC Glucose 122 H Lactic Acid Calcium Phosphorus Magnesium Direct Bilirubin AST ALT Alkaline Phosphatase Lactate Dehydrogenase Troponin T C-Reactive Protein Total Protein Albumin Prealbumin Triglycerides Cholesterol LDL Cholesterol Direct HDL Cholesterol Urine pH Urine WBC (Auto) Urine Creatinine Urine Total Protein Fluid Total Protein Vancomycin Trough Rheumatoid Factor Complement C4 Miscellaneous Test Crossmatch 12/28/16 12/28/16 12/28/16 12:27 16:32 23:46 WBC RBC Hgb Hct MCV MCH MCHC RDW Plt Count Lymph % (Auto) [place] % (Auto) Lymph # [place] # Baso # Seg Neutrophils % Seg Neuts % (Manual) Lymphocytes % (Manual) Monocytes % (Manual) Eosinophils % (Manual) Basophils % (Manual) Nucleated RBC % Seg Neutrophils # Seg Neutrophils # Man Lymphocytes # (Manual) Monocytes # (Manual) Eosinophils # (Manual) Basophils # (Manual) PT INR Fibrinogen dRVVT Confirm Interp Factor V Activity POC ABG pH POC ABG pCO2 POC ABG pO2 ABG pO2 ABG HCO3 ABG Base Excess ABG Hemoglobin Oxyhemoglobin Sodium Potassium Chloride Carbon Dioxide BUN Creatinine Glucose POC Glucose 127 H 117 H 108 H Lactic Acid Calcium Phosphorus Magnesium Direct Bilirubin AST ALT Alkaline Phosphatase Lactate Dehydrogenase Troponin T C-Reactive Protein Total Protein Albumin Prealbumin Triglycerides Cholesterol LDL Cholesterol Direct HDL Cholesterol Urine pH Urine WBC (Auto) Urine Creatinine Urine Total Protein Fluid Total Protein Vancomycin Trough Rheumatoid Factor Complement C4 Miscellaneous Test Crossmatch 12/29/16 12/29/16 12/29/16 05:15 05:15 05:32 WBC RBC Hgb Hct MCV MCH MCHC RDW Plt Count Lymph % (Auto) [place] % (Auto) Lymph # [place] # Baso # Seg Neutrophils % Seg Neuts % (Manual) Lymphocytes % (Manual) Monocytes % (Manual) Eosinophils % (Manual) Basophils % (Manual) Nucleated RBC % Seg Neutrophils # Seg Neutrophils # Man Lymphocytes # (Manual) Monocytes # (Manual) Eosinophils # (Manual) Basophils # (Manual) PT INR Fibrinogen dRVVT Confirm Interp Factor V Activity POC ABG pH POC ABG pCO2 POC ABG pO2 ABG pO2 ABG HCO3 ABG Base Excess ABG Hemoglobin Oxyhemoglobin Sodium Potassium Chloride Carbon Dioxide BUN 74 H Creatinine 1.6 H Glucose 111 H POC Glucose 123 H Lactic Acid Calcium Phosphorus Magnesium Direct Bilirubin AST ALT Alkaline Phosphatase Lactate Dehydrogenase Troponin T C-Reactive Protein Total Protein Albumin Prealbumin 0.110 L Triglycerides Cholesterol LDL Cholesterol Direct HDL Cholesterol Urine pH Urine WBC (Auto) Urine Creatinine Urine Total Protein Fluid Total Protein Vancomycin Trough Rheumatoid Factor Complement C4 Miscellaneous Test Crossmatch 12/29/16 12/29/16 12/29/16 11:43 13:45 14:00 WBC 13.8 H RBC 2.26 L Hgb 6.3 L Hct 20.4 L MCV MCH MCHC RDW 18.3 H Plt Count Lymph % (Auto) [place] % (Auto) Lymph # [place] # 0.9 H Baso # Seg Neutrophils % 78.6 H Seg Neuts % (Manual) Lymphocytes % (Manual) Monocytes % (Manual) Eosinophils % (Manual) Basophils % (Manual) Nucleated RBC % Seg Neutrophils # 10.8 H Seg Neutrophils # Man Lymphocytes # (Manual) Monocytes # (Manual) Eosinophils # (Manual) Basophils # (Manual) PT INR Fibrinogen dRVVT Confirm Interp Factor V Activity POC ABG pH POC ABG pCO2 POC ABG pO2 ABG pO2 ABG HCO3 ABG Base Excess ABG Hemoglobin Oxyhemoglobin Sodium Potassium Chloride Carbon Dioxide BUN Creatinine Glucose POC Glucose 133 H Lactic Acid Calcium Phosphorus Magnesium Direct Bilirubin AST ALT Alkaline Phosphatase Lactate Dehydrogenase Troponin T C-Reactive Protein Total Protein Albumin Prealbumin Triglycerides Cholesterol LDL Cholesterol Direct HDL Cholesterol Urine pH Urine WBC (Auto) Urine Creatinine Urine Total Protein Fluid Total Protein Vancomycin Trough Rheumatoid Factor Complement C4 Miscellaneous Test Crossmatch See Detail 12/29/16 12/29/16 12/29/16 17:03 23:15 23:22 WBC RBC Hgb 7.3 L Hct 22.3 L MCV MCH MCHC RDW Plt Count Lymph % (Auto) [place] % (Auto) Lymph # [place] # Baso # Seg Neutrophils % Seg Neuts % (Manual) Lymphocytes % (Manual) Monocytes % (Manual) Eosinophils % (Manual) Basophils % (Manual) Nucleated RBC % Seg Neutrophils # Seg Neutrophils # Man Lymphocytes # (Manual) Monocytes # (Manual) Eosinophils # (Manual) Basophils # (Manual) PT INR Fibrinogen dRVVT Confirm Interp Factor V Activity POC ABG pH POC ABG pCO2 POC ABG pO2 ABG pO2 ABG HCO3 ABG Base Excess ABG Hemoglobin Oxyhemoglobin Sodium Potassium Chloride Carbon Dioxide BUN Creatinine Glucose POC Glucose 139 H 120 H Lactic Acid Calcium Phosphorus Magnesium Direct Bilirubin AST ALT Alkaline Phosphatase Lactate Dehydrogenase Troponin T C-Reactive Protein Total Protein Albumin Prealbumin Triglycerides Cholesterol LDL Cholesterol Direct HDL Cholesterol Urine pH Urine WBC (Auto) Urine Creatinine Urine Total Protein Fluid Total Protein Vancomycin Trough Rheumatoid Factor Complement C4 Miscellaneous Test Crossmatch 12/30/16 12/30/16 12/30/16 04:20 04:20 05:43 WBC 15.6 H RBC 2.81 L Hgb 8.0 L Hct 24.0 L MCV MCH MCHC RDW 16.9 H Plt Count Lymph % (Auto) [place] % (Auto) Lymph # [place] # 1.0 H Baso # Seg Neutrophils % 76.2 H Seg Neuts % (Manual) Lymphocytes % (Manual) Monocytes % (Manual) Eosinophils % (Manual) Basophils % (Manual) Nucleated RBC % Seg Neutrophils # 11.9 H Seg Neutrophils # Man Lymphocytes # (Manual) Monocytes # (Manual) Eosinophils # (Manual) Basophils # (Manual) PT INR Fibrinogen dRVVT Confirm Interp Factor V Activity POC ABG pH POC ABG pCO2 POC ABG pO2 ABG pO2 ABG HCO3 ABG Base Excess ABG Hemoglobin Oxyhemoglobin Sodium Potassium Chloride Carbon Dioxide BUN 87 H Creatinine 1.8 H Glucose 119 H POC Glucose 115 H Lactic Acid Calcium Phosphorus Magnesium Direct Bilirubin AST ALT Alkaline Phosphatase Lactate Dehydrogenase Troponin T C-Reactive Protein Total Protein Albumin Prealbumin Triglycerides Cholesterol LDL Cholesterol Direct HDL Cholesterol Urine pH Urine WBC (Auto) Urine Creatinine Urine Total Protein Fluid Total Protein Vancomycin Trough Rheumatoid Factor Complement C4 Miscellaneous Test Crossmatch 12/30/16 12/30/16 12/31/16 17:27 23:21 04:00 WBC RBC Hgb Hct MCV MCH MCHC RDW Plt Count Lymph % (Auto) [place] % (Auto) Lymph # [place] # Baso # Seg Neutrophils % Seg Neuts % (Manual) Lymphocytes % (Manual) Monocytes % (Manual) Eosinophils % (Manual) Basophils % (Manual) Nucleated RBC % Seg Neutrophils # Seg Neutrophils # Man Lymphocytes # (Manual) Monocytes # (Manual) Eosinophils # (Manual) Basophils # (Manual) PT INR Fibrinogen dRVVT Confirm Interp Factor V Activity POC ABG pH POC ABG pCO2 POC ABG pO2 ABG pO2 ABG HCO3 ABG Base Excess ABG Hemoglobin Oxyhemoglobin Sodium Potassium Chloride Carbon Dioxide BUN 59 H Creatinine Glucose 298 H POC Glucose 144 H 125 H Lactic Acid Calcium Phosphorus Magnesium Direct Bilirubin AST ALT Alkaline Phosphatase Lactate Dehydrogenase Troponin T C-Reactive Protein Total Protein Albumin Prealbumin Triglycerides Cholesterol LDL Cholesterol Direct HDL Cholesterol Urine pH Urine WBC (Auto) Urine Creatinine Urine Total Protein Fluid Total Protein Vancomycin Trough Rheumatoid Factor Complement C4 Miscellaneous Test Crossmatch 12/31/16 12/31/16 12/31/16 05:11 12:18 18:17 WBC RBC Hgb Hct MCV MCH MCHC RDW Plt Count Lymph % (Auto) [place] % (Auto) Lymph # [place] # Baso # Seg Neutrophils % Seg Neuts % (Manual) Lymphocytes % (Manual) Monocytes % (Manual) Eosinophils % (Manual) Basophils % (Manual) Nucleated RBC % Seg Neutrophils # Seg Neutrophils # Man Lymphocytes # (Manual) Monocytes # (Manual) Eosinophils # (Manual) Basophils # (Manual) PT INR Fibrinogen dRVVT Confirm Interp Factor V Activity POC ABG pH POC ABG pCO2 POC ABG pO2 ABG pO2 ABG HCO3 ABG Base Excess ABG Hemoglobin Oxyhemoglobin Sodium Potassium Chloride Carbon Dioxide BUN Creatinine Glucose POC Glucose 167 H 125 H 133 H Lactic Acid Calcium Phosphorus Magnesium Direct Bilirubin AST ALT Alkaline Phosphatase Lactate Dehydrogenase Troponin T C-Reactive Protein Total Protein Albumin Prealbumin Triglycerides Cholesterol LDL Cholesterol Direct HDL Cholesterol Urine pH Urine WBC (Auto) Urine Creatinine Urine Total Protein Fluid Total Protein Vancomycin Trough Rheumatoid Factor Complement C4 Miscellaneous Test Crossmatch 12/31/16 01/01/17 01/01/17 23:55 05:00 05:12 WBC RBC Hgb Hct MCV MCH MCHC RDW Plt Count Lymph % (Auto) [place] % (Auto) Lymph # [place] # Baso # Seg Neutrophils % Seg Neuts % (Manual) Lymphocytes % (Manual) Monocytes % (Manual) Eosinophils % (Manual) Basophils % (Manual) Nucleated RBC % Seg Neutrophils # Seg Neutrophils # Man Lymphocytes # (Manual) Monocytes # (Manual) Eosinophils # (Manual) Basophils # (Manual) PT INR Fibrinogen dRVVT Confirm Interp Factor V Activity POC ABG pH POC ABG pCO2 POC ABG pO2 ABG pO2 ABG HCO3 ABG Base Excess ABG Hemoglobin Oxyhemoglobin Sodium Potassium Chloride Carbon Dioxide BUN 76 H Creatinine 1.5 H Glucose 109 H POC Glucose 129 H 129 H Lactic Acid Calcium Phosphorus Magnesium Direct Bilirubin AST ALT Alkaline Phosphatase 536 H Lactate Dehydrogenase Troponin T C-Reactive Protein Total Protein Albumin 1.5 L Prealbumin Triglycerides Cholesterol LDL Cholesterol Direct HDL Cholesterol Urine pH Urine WBC (Auto) Urine Creatinine Urine Total Protein Fluid Total Protein Vancomycin Trough Rheumatoid Factor Complement C4 Miscellaneous Test Crossmatch 01/01/17 01/01/17 01/01/17 12:25 17:01 23:32 WBC RBC Hgb Hct MCV MCH MCHC RDW Plt Count Lymph % (Auto) [place] % (Auto) Lymph # [place] # Baso # Seg Neutrophils % Seg Neuts % (Manual) Lymphocytes % (Manual) Monocytes % (Manual) Eosinophils % (Manual) Basophils % (Manual) Nucleated RBC % Seg Neutrophils # Seg Neutrophils # Man Lymphocytes # (Manual) Monocytes # (Manual) Eosinophils # (Manual) Basophils # (Manual) PT INR Fibrinogen dRVVT Confirm Interp Factor V Activity POC ABG pH POC ABG pCO2 POC ABG pO2 ABG pO2 ABG HCO3 ABG Base Excess ABG Hemoglobin Oxyhemoglobin Sodium Potassium Chloride Carbon Dioxide BUN Creatinine Glucose POC Glucose 140 H 142 H 112 H Lactic Acid Calcium Phosphorus Magnesium Direct Bilirubin AST ALT Alkaline Phosphatase Lactate Dehydrogenase Troponin T C-Reactive Protein Total Protein Albumin Prealbumin Triglycerides Cholesterol LDL Cholesterol Direct HDL Cholesterol Urine pH Urine WBC (Auto) Urine Creatinine Urine Total Protein Fluid Total Protein Vancomycin Trough Rheumatoid Factor Complement C4 Miscellaneous Test Crossmatch 01/02/17 01/02/17 01/02/17 04:56 06:00 11:37 WBC RBC Hgb Hct MCV MCH MCHC RDW Plt Count Lymph % (Auto) [place] % (Auto) Lymph # [place] # Baso # Seg Neutrophils % Seg Neuts % (Manual) Lymphocytes % (Manual) Monocytes % (Manual) Eosinophils % (Manual) Basophils % (Manual) Nucleated RBC % Seg Neutrophils # Seg Neutrophils # Man Lymphocytes # (Manual) Monocytes # (Manual) Eosinophils # (Manual) Basophils # (Manual) PT INR Fibrinogen dRVVT Confirm Interp Factor V Activity POC ABG pH POC ABG pCO2 POC ABG pO2 ABG pO2 ABG HCO3 ABG Base Excess ABG Hemoglobin Oxyhemoglobin Sodium Potassium Chloride Carbon Dioxide BUN 88 H Creatinine 1.7 H Glucose 113 H POC Glucose 136 H 200 H Lactic Acid Calcium Phosphorus Magnesium Direct Bilirubin AST ALT Alkaline Phosphatase Lactate Dehydrogenase Troponin T C-Reactive Protein Total Protein Albumin Prealbumin Triglycerides Cholesterol LDL Cholesterol Direct HDL Cholesterol Urine pH Urine WBC (Auto) Urine Creatinine Urine Total Protein Fluid Total Protein Vancomycin Trough Rheumatoid Factor Complement C4 Miscellaneous Test Crossmatch 01/02/17 01/02/17 01/03/17 17:42 22:52 04:54 WBC RBC Hgb Hct MCV MCH MCHC RDW Plt Count Lymph % (Auto) [place] % (Auto) Lymph # [place] # Baso # Seg Neutrophils % Seg Neuts % (Manual) Lymphocytes % (Manual) Monocytes % (Manual) Eosinophils % (Manual) Basophils % (Manual) Nucleated RBC % Seg Neutrophils # Seg Neutrophils # Man Lymphocytes # (Manual) Monocytes # (Manual) Eosinophils # (Manual) Basophils # (Manual) PT INR Fibrinogen dRVVT Confirm Interp Factor V Activity POC ABG pH POC ABG pCO2 POC ABG pO2 ABG pO2 ABG HCO3 ABG Base Excess ABG Hemoglobin Oxyhemoglobin Sodium Potassium Chloride Carbon Dioxide BUN Creatinine Glucose POC Glucose 112 H 133 H 111 H Lactic Acid Calcium Phosphorus Magnesium Direct Bilirubin AST ALT Alkaline Phosphatase Lactate Dehydrogenase Troponin T C-Reactive Protein Total Protein Albumin Prealbumin Triglycerides Cholesterol LDL Cholesterol Direct HDL Cholesterol Urine pH Urine WBC (Auto) Urine Creatinine Urine Total Protein Fluid Total Protein Vancomycin Trough Rheumatoid Factor Complement C4 Miscellaneous Test Crossmatch 01/03/17 01/03/17 01/03/17 05:00 05:00 14:02 WBC 11.2 H RBC 2.56 L Hgb 7.2 L Hct 22.3 L MCV MCH MCHC RDW 17.3 H Plt Count Lymph % (Auto) [place] % (Auto) 10.0 H Lymph # [place] # 1.1 H Baso # Seg Neutrophils % 70.5 H Seg Neuts % (Manual) Lymphocytes % (Manual) Monocytes % (Manual) Eosinophils % (Manual) Basophils % (Manual) Nucleated RBC % Seg Neutrophils # 7.9 H Seg Neutrophils # Man Lymphocytes # (Manual) Monocytes # (Manual) Eosinophils # (Manual) Basophils # (Manual) PT INR Fibrinogen dRVVT Confirm Interp Factor V Activity POC ABG pH POC ABG pCO2 POC ABG pO2 ABG pO2 ABG HCO3 ABG Base Excess ABG Hemoglobin Oxyhemoglobin Sodium Potassium Chloride Carbon Dioxide BUN 60 H Creatinine 1.3 H Glucose 110 H POC Glucose 119 H Lactic Acid Calcium Phosphorus Magnesium Direct Bilirubin AST ALT Alkaline Phosphatase Lactate Dehydrogenase Troponin T C-Reactive Protein Total Protein Albumin Prealbumin Triglycerides Cholesterol LDL Cholesterol Direct HDL Cholesterol Urine pH Urine WBC (Auto) Urine Creatinine Urine Total Protein Fluid Total Protein Vancomycin Trough Rheumatoid Factor Complement C4 Miscellaneous Test Crossmatch 01/03/17 01/03/17 01/04/17 18:13 23:40 05:57 WBC RBC Hgb Hct MCV MCH MCHC RDW Plt Count Lymph % (Auto) [place] % (Auto) Lymph # [place] # Baso # Seg Neutrophils % Seg Neuts % (Manual) Lymphocytes % (Manual) Monocytes % (Manual) Eosinophils % (Manual) Basophils % (Manual) Nucleated RBC % Seg Neutrophils # Seg Neutrophils # Man Lymphocytes # (Manual) Monocytes # (Manual) Eosinophils # (Manual) Basophils # (Manual) PT INR Fibrinogen dRVVT Confirm Interp Factor V Activity POC ABG pH POC ABG pCO2 POC ABG pO2 ABG pO2 ABG HCO3 ABG Base Excess ABG Hemoglobin Oxyhemoglobin Sodium Potassium Chloride Carbon Dioxide BUN Creatinine Glucose POC Glucose 107 H 129 H 111 H Lactic Acid Calcium Phosphorus Magnesium Direct Bilirubin AST ALT Alkaline Phosphatase Lactate Dehydrogenase Troponin T C-Reactive Protein Total Protein Albumin Prealbumin Triglycerides Cholesterol LDL Cholesterol Direct HDL Cholesterol Urine pH Urine WBC (Auto) Urine Creatinine Urine Total Protein Fluid Total Protein Vancomycin Trough Rheumatoid Factor Complement C4 Miscellaneous Test Crossmatch 01/04/17 01/04/17 01/04/17 12:46 15:27 17:11 WBC RBC Hgb Hct MCV MCH MCHC RDW Plt Count Lymph % (Auto) [place] % (Auto) Lymph # [place] # Baso # Seg Neutrophils % Seg Neuts % (Manual) Lymphocytes % (Manual) Monocytes % (Manual) Eosinophils % (Manual) Basophils % (Manual) Nucleated RBC % Seg Neutrophils # Seg Neutrophils # Man Lymphocytes # (Manual) Monocytes # (Manual) Eosinophils # (Manual) Basophils # (Manual) PT INR Fibrinogen dRVVT Confirm Interp Factor V Activity POC ABG pH POC ABG pCO2 POC ABG pO2 ABG pO2 ABG HCO3 ABG Base Excess ABG Hemoglobin Oxyhemoglobin Sodium Potassium Chloride Carbon Dioxide BUN 43 H Creatinine Glucose 124 H POC Glucose 159 H 125 H Lactic Acid Calcium 8.0 L Phosphorus 2.10 L Magnesium Direct Bilirubin AST ALT Alkaline Phosphatase Lactate Dehydrogenase Troponin T C-Reactive Protein Total Protein Albumin Prealbumin Triglycerides Cholesterol LDL Cholesterol Direct HDL Cholesterol Urine pH Urine WBC (Auto) Urine Creatinine Urine Total Protein Fluid Total Protein Vancomycin Trough Rheumatoid Factor Complement C4 Miscellaneous Test Crossmatch 01/04/17 01/05/17 01/05/17 23:31 04:00 05:46 WBC RBC Hgb Hct MCV MCH MCHC RDW Plt Count Lymph % (Auto) [place] % (Auto) Lymph # [place] # Baso # Seg Neutrophils % Seg Neuts % (Manual) Lymphocytes % (Manual) Monocytes % (Manual) Eosinophils % (Manual) Basophils % (Manual) Nucleated RBC % Seg Neutrophils # Seg Neutrophils # Man Lymphocytes # (Manual) Monocytes # (Manual) Eosinophils # (Manual) Basophils # (Manual) PT INR Fibrinogen dRVVT Confirm Interp Factor V Activity POC ABG pH POC ABG pCO2 POC ABG pO2 ABG pO2 ABG HCO3 ABG Base Excess ABG Hemoglobin Oxyhemoglobin Sodium Potassium Chloride Carbon Dioxide BUN 52 H Creatinine 1.3 H Glucose 113 H POC Glucose 123 H 118 H Lactic Acid Calcium Phosphorus 2.40 L Magnesium Direct Bilirubin AST ALT Alkaline Phosphatase Lactate Dehydrogenase Troponin T C-Reactive Protein Total Protein Albumin Prealbumin Triglycerides Cholesterol LDL Cholesterol Direct HDL Cholesterol Urine pH Urine WBC (Auto) Urine Creatinine Urine Total Protein Fluid Total Protein Vancomycin Trough Rheumatoid Factor Complement C4 Miscellaneous Test Crossmatch 01/05/17 01/05/17 01/05/17 11:41 17:48 23:27 WBC RBC Hgb Hct MCV MCH MCHC RDW Plt Count Lymph % (Auto) [place] % (Auto) Lymph # [place] # Baso # Seg Neutrophils % Seg Neuts % (Manual) Lymphocytes % (Manual) Monocytes % (Manual) Eosinophils % (Manual) Basophils % (Manual) Nucleated RBC % Seg Neutrophils # Seg Neutrophils # Man Lymphocytes # (Manual) Monocytes # (Manual) Eosinophils # (Manual) Basophils # (Manual) PT INR Fibrinogen dRVVT Confirm Interp Factor V Activity POC ABG pH POC ABG pCO2 POC ABG pO2 ABG pO2 ABG HCO3 ABG Base Excess ABG Hemoglobin Oxyhemoglobin Sodium Potassium Chloride Carbon Dioxide BUN Creatinine Glucose POC Glucose 163 H 142 H 155 H Lactic Acid Calcium Phosphorus Magnesium Direct Bilirubin AST ALT Alkaline Phosphatase Lactate Dehydrogenase Troponin T C-Reactive Protein Total Protein Albumin Prealbumin Triglycerides Cholesterol LDL Cholesterol Direct HDL Cholesterol Urine pH Urine WBC (Auto) Urine Creatinine Urine Total Protein Fluid Total Protein Vancomycin Trough Rheumatoid Factor Complement C4 Miscellaneous Test Crossmatch 01/06/17 01/06/17 01/06/17 05:20 07:35 11:18 WBC RBC Hgb Hct MCV MCH MCHC RDW Plt Count Lymph % (Auto) [place] % (Auto) Lymph # [place] # Baso # Seg Neutrophils % Seg Neuts % (Manual) Lymphocytes % (Manual) Monocytes % (Manual) Eosinophils % (Manual) Basophils % (Manual) Nucleated RBC % Seg Neutrophils # Seg Neutrophils # Man Lymphocytes # (Manual) Monocytes # (Manual) Eosinophils # (Manual) Basophils # (Manual) PT INR Fibrinogen dRVVT Confirm Interp Factor V Activity POC ABG pH POC ABG pCO2 POC ABG pO2 ABG pO2 ABG HCO3 ABG Base Excess ABG Hemoglobin Oxyhemoglobin Sodium Potassium Chloride Carbon Dioxide BUN 74 H Creatinine 1.6 H Glucose 135 H POC Glucose 108 H 149 H Lactic Acid Calcium Phosphorus Magnesium Direct Bilirubin AST ALT Alkaline Phosphatase Lactate Dehydrogenase Troponin T C-Reactive Protein Total Protein Albumin Prealbumin Triglycerides Cholesterol LDL Cholesterol Direct HDL Cholesterol Urine pH Urine WBC (Auto) Urine Creatinine Urine Total Protein Fluid Total Protein Vancomycin Trough Rheumatoid Factor Complement C4 Miscellaneous Test Crossmatch 01/06/17 01/07/17 01/07/17 17:17 00:23 05:31 WBC RBC Hgb Hct MCV MCH MCHC RDW Plt Count Lymph % (Auto) [place] % (Auto) Lymph # [place] # Baso # Seg Neutrophils % Seg Neuts % (Manual) Lymphocytes % (Manual) Monocytes % (Manual) Eosinophils % (Manual) Basophils % (Manual) Nucleated RBC % Seg Neutrophils # Seg Neutrophils # Man Lymphocytes # (Manual) Monocytes # (Manual) Eosinophils # (Manual) Basophils # (Manual) PT INR Fibrinogen dRVVT Confirm Interp Factor V Activity POC ABG pH POC ABG pCO2 POC ABG pO2 ABG pO2 ABG HCO3 ABG Base Excess ABG Hemoglobin Oxyhemoglobin Sodium Potassium Chloride Carbon Dioxide BUN Creatinine Glucose POC Glucose 146 H 165 H 153 H Lactic Acid Calcium Phosphorus Magnesium Direct Bilirubin AST ALT Alkaline Phosphatase Lactate Dehydrogenase Troponin T C-Reactive Protein Total Protein Albumin Prealbumin Triglycerides Cholesterol LDL Cholesterol Direct HDL Cholesterol Urine pH Urine WBC (Auto) Urine Creatinine Urine Total Protein Fluid Total Protein Vancomycin Trough Rheumatoid Factor Complement C4 Miscellaneous Test Crossmatch 01/07/17 01/07/17 01/07/17 06:00 11:39 17:11 WBC RBC Hgb Hct MCV MCH MCHC RDW Plt Count Lymph % (Auto) [place] % (Auto) Lymph # [place] # Baso # Seg Neutrophils % Seg Neuts % (Manual) Lymphocytes % (Manual) Monocytes % (Manual) Eosinophils % (Manual) Basophils % (Manual) Nucleated RBC % Seg Neutrophils # Seg Neutrophils # Man Lymphocytes # (Manual) Monocytes # (Manual) Eosinophils # (Manual) Basophils # (Manual) PT INR Fibrinogen dRVVT Confirm Interp Factor V Activity POC ABG pH POC ABG pCO2 POC ABG pO2 ABG pO2 ABG HCO3 ABG Base Excess ABG Hemoglobin Oxyhemoglobin Sodium Potassium Chloride Carbon Dioxide BUN 42 H Creatinine Glucose 175 H POC Glucose 163 H 163 H Lactic Acid Calcium Phosphorus 2.40 L D Magnesium Direct Bilirubin AST ALT Alkaline Phosphatase Lactate Dehydrogenase Troponin T C-Reactive Protein Total Protein Albumin Prealbumin Triglycerides Cholesterol LDL Cholesterol Direct HDL Cholesterol Urine pH Urine WBC (Auto) Urine Creatinine Urine Total Protein Fluid Total Protein Vancomycin Trough Rheumatoid Factor Complement C4 Miscellaneous Test Crossmatch 01/07/17 01/08/17 01/08/17 23:40 05:00 05:00 WBC 27.4 H RBC 2.27 L Hgb 6.1 L Hct 20.4 L MCV MCH 27 L MCHC RDW 17.8 H Plt Count Lymph % (Auto) [place] % (Auto) Lymph # [place] # Baso # Seg Neutrophils % Seg Neuts % (Manual) Lymphocytes % (Manual) Monocytes % (Manual) Eosinophils % (Manual) Basophils % (Manual) Nucleated RBC % Seg Neutrophils # Seg Neutrophils # Man Lymphocytes # (Manual) Monocytes # (Manual) Eosinophils # (Manual) Basophils # (Manual) PT INR Fibrinogen dRVVT Confirm Interp Factor V Activity POC ABG pH POC ABG pCO2 POC ABG pO2 ABG pO2 ABG HCO3 ABG Base Excess ABG Hemoglobin Oxyhemoglobin Sodium Potassium Chloride Carbon Dioxide 16 L D BUN 62 H Creatinine 1.6 H D Glucose 103 H POC Glucose 135 H Lactic Acid Calcium Phosphorus Magnesium Direct Bilirubin AST ALT Alkaline Phosphatase Lactate Dehydrogenase Troponin T C-Reactive Protein Total Protein Albumin Prealbumin Triglycerides Cholesterol LDL Cholesterol Direct HDL Cholesterol Urine pH Urine WBC (Auto) Urine Creatinine Urine Total Protein Fluid Total Protein Vancomycin Trough Rheumatoid Factor Complement C4 Miscellaneous Test Crossmatch 01/08/17 01/08/17 01/08/17 05:25 10:37 10:37 WBC RBC Hgb Hct MCV MCH MCHC RDW Plt Count Lymph % (Auto) [place] % (Auto) Lymph # [place] # Baso # Seg Neutrophils % Seg Neuts % (Manual) Lymphocytes % (Manual) Monocytes % (Manual) Eosinophils % (Manual) Basophils % (Manual) Nucleated RBC % Seg Neutrophils # Seg Neutrophils # Man Lymphocytes # (Manual) Monocytes # (Manual) Eosinophils # (Manual) Basophils # (Manual) PT INR Fibrinogen dRVVT Confirm Interp Factor V Activity POC ABG pH POC ABG pCO2 POC ABG pO2 ABG pO2 ABG HCO3 ABG Base Excess ABG Hemoglobin Oxyhemoglobin Sodium Potassium Chloride Carbon Dioxide BUN Creatinine Glucose POC Glucose 106 H Lactic Acid Calcium Phosphorus Magnesium Direct Bilirubin AST ALT Alkaline Phosphatase Lactate Dehydrogenase Troponin T C-Reactive Protein 24.40 H Total Protein Albumin Prealbumin Triglycerides Cholesterol LDL Cholesterol Direct HDL Cholesterol Urine pH Urine WBC (Auto) Urine Creatinine Urine Total Protein Fluid Total Protein Vancomycin Trough Rheumatoid Factor Complement C4 Miscellaneous Test Crossmatch See Detail 01/08/17 01/08/17 01/08/17 10:37 11:33 15:15 WBC RBC Hgb Hct MCV MCH MCHC RDW Plt Count Lymph % (Auto) [place] % (Auto) Lymph # [place] # Baso # Seg Neutrophils % Seg Neuts % (Manual) Lymphocytes % (Manual) Monocytes % (Manual) Eosinophils % (Manual) Basophils % (Manual) Nucleated RBC % Seg Neutrophils # Seg Neutrophils # Man Lymphocytes # (Manual) Monocytes # (Manual) Eosinophils # (Manual) Basophils # (Manual) PT INR Fibrinogen dRVVT Confirm Interp Factor V Activity POC ABG pH POC ABG pCO2 POC ABG pO2 ABG pO2 ABG HCO3 ABG Base Excess ABG Hemoglobin Oxyhemoglobin Sodium Potassium Chloride Carbon Dioxide BUN Creatinine Glucose POC Glucose 157 H Lactic Acid 9.70 H* 9.10 H* Calcium Phosphorus Magnesium Direct Bilirubin AST ALT Alkaline Phosphatase Lactate Dehydrogenase Troponin T C-Reactive Protein Total Protein Albumin Prealbumin Triglycerides Cholesterol LDL Cholesterol Direct HDL Cholesterol Urine pH Urine WBC (Auto) Urine Creatinine Urine Total Protein Fluid Total Protein Vancomycin Trough Rheumatoid Factor Complement C4 Miscellaneous Test Crossmatch 01/08/17 01/08/17 01/09/17 17:19 23:12 04:40 WBC RBC Hgb Hct MCV MCH MCHC RDW Plt Count Lymph % (Auto) [place] % (Auto) Lymph # [place] # Baso # Seg Neutrophils % Seg Neuts % (Manual) Lymphocytes % (Manual) Monocytes % (Manual) Eosinophils % (Manual) Basophils % (Manual) Nucleated RBC % Seg Neutrophils # Seg Neutrophils # Man Lymphocytes # (Manual) Monocytes # (Manual) Eosinophils # (Manual) Basophils # (Manual) PT INR Fibrinogen dRVVT Confirm Interp Factor V Activity POC ABG pH POC ABG pCO2 POC ABG pO2 ABG pO2 ABG HCO3 ABG Base Excess ABG Hemoglobin Oxyhemoglobin Sodium 147 H Potassium Chloride Carbon Dioxide BUN 82 H Creatinine 1.8 H Glucose 137 H POC Glucose 164 H 157 H Lactic Acid Calcium Phosphorus Magnesium Direct Bilirubin AST ALT Alkaline Phosphatase Lactate Dehydrogenase Troponin T C-Reactive Protein Total Protein Albumin Prealbumin Triglycerides Cholesterol LDL Cholesterol Direct HDL Cholesterol Urine pH Urine WBC (Auto) Urine Creatinine Urine Total Protein Fluid Total Protein Vancomycin Trough Rheumatoid Factor Complement C4 Miscellaneous Test Crossmatch 01/09/17 01/09/17 01/09/17 05:42 08:22 10:57 WBC RBC Hgb Hct MCV MCH MCHC RDW Plt Count Lymph % (Auto) [place] % (Auto) Lymph # [place] # Baso # Seg Neutrophils % Seg Neuts % (Manual) Lymphocytes % (Manual) Monocytes % (Manual) Eosinophils % (Manual) Basophils % (Manual) Nucleated RBC % Seg Neutrophils # Seg Neutrophils # Man Lymphocytes # (Manual) Monocytes # (Manual) Eosinophils # (Manual) Basophils # (Manual) PT INR Fibrinogen dRVVT Confirm Interp Factor V Activity POC ABG pH POC ABG pCO2 POC ABG pO2 ABG pO2 ABG HCO3 ABG Base Excess ABG Hemoglobin Oxyhemoglobin Sodium Potassium Chloride Carbon Dioxide BUN Creatinine Glucose POC Glucose 156 H 122 H Lactic Acid 2.30 H* Calcium Phosphorus Magnesium Direct Bilirubin AST ALT Alkaline Phosphatase Lactate Dehydrogenase Troponin T C-Reactive Protein Total Protein Albumin Prealbumin Triglycerides Cholesterol LDL Cholesterol Direct HDL Cholesterol Urine pH Urine WBC (Auto) Urine Creatinine Urine Total Protein Fluid Total Protein Vancomycin Trough Rheumatoid Factor Complement C4 Miscellaneous Test Crossmatch 01/09/17 01/09/17 01/09/17 13:30 17:14 18:45 WBC RBC Hgb Hct MCV MCH MCHC RDW Plt Count Lymph % (Auto) [place] % (Auto) Lymph # [place] # Baso # Seg Neutrophils % Seg Neuts % (Manual) Lymphocytes % (Manual) Monocytes % (Manual) Eosinophils % (Manual) Basophils % (Manual) Nucleated RBC % Seg Neutrophils # Seg Neutrophils # Man Lymphocytes # (Manual) Monocytes # (Manual) Eosinophils # (Manual) Basophils # (Manual) PT INR Fibrinogen dRVVT Confirm Interp Factor V Activity POC ABG pH POC ABG pCO2 POC ABG pO2 ABG pO2 ABG HCO3 ABG Base Excess ABG Hemoglobin Oxyhemoglobin Sodium Potassium Chloride Carbon Dioxide BUN Creatinine Glucose POC Glucose 127 H Lactic Acid Calcium Phosphorus Magnesium Direct Bilirubin AST ALT Alkaline Phosphatase Lactate Dehydrogenase Troponin T C-Reactive Protein 24.70 H Total Protein Albumin Prealbumin Triglycerides Cholesterol LDL Cholesterol Direct HDL Cholesterol Urine pH Urine WBC (Auto) Urine Creatinine Urine Total Protein Fluid Total Protein Vancomycin Trough Rheumatoid Factor Complement C4 Miscellaneous Test Flexitest 1 H Crossmatch 01/10/17 01/10/17 01/10/17 01:21 04:00 04:00 WBC 18.1 H RBC 3.22 L Hgb 8.8 L Hct 27.0 L D MCV MCH 27 L MCHC RDW 17.0 H Plt Count Lymph % (Auto) [place] % (Auto) Lymph # [place] # Baso # Seg Neutrophils % Seg Neuts % (Manual) Lymphocytes % (Manual) Monocytes % (Manual) Eosinophils % (Manual) Basophils % (Manual) Nucleated RBC % Seg Neutrophils # Seg Neutrophils # Man Lymphocytes # (Manual) Monocytes # (Manual) Eosinophils # (Manual) Basophils # (Manual) PT INR Fibrinogen dRVVT Confirm Interp Factor V Activity POC ABG pH POC ABG pCO2 POC ABG pO2 ABG pO2 ABG HCO3 ABG Base Excess ABG Hemoglobin Oxyhemoglobin Sodium Potassium Chloride Carbon Dioxide BUN 59 H Creatinine 1.3 H Glucose 122 H POC Glucose 160 H Lactic Acid Calcium Phosphorus Magnesium Direct Bilirubin AST ALT Alkaline Phosphatase Lactate Dehydrogenase Troponin T C-Reactive Protein Total Protein Albumin Prealbumin Triglycerides Cholesterol LDL Cholesterol Direct HDL Cholesterol Urine pH Urine WBC (Auto) Urine Creatinine Urine Total Protein Fluid Total Protein Vancomycin Trough Rheumatoid Factor Complement C4 Miscellaneous Test Crossmatch 1101/10/17 01/10/17 05:36 12:14 17:55 WBC RBC Hgb Hct MCV MCH MCHC RDW Plt Count Lymph % (Auto) [place] % (Auto) Lymph # [place] # Baso # Seg Neutrophils % Seg Neuts % (Manual) Lymphocytes % (Manual) Monocytes % (Manual) Eosinophils % (Manual) Basophils % (Manual) Nucleated RBC % Seg Neutrophils # Seg Neutrophils # Man Lymphocytes # (Manual) Monocytes # (Manual) Eosinophils # (Manual) Basophils # (Manual) PT INR Fibrinogen dRVVT Confirm Interp Factor V Activity POC ABG pH POC ABG pCO2 POC ABG pO2 ABG pO2 ABG HCO3 ABG Base Excess ABG Hemoglobin Oxyhemoglobin Sodium Potassium Chloride Carbon Dioxide BUN Creatinine Glucose POC Glucose 163 H 120 H 144 H Lactic Acid Calcium Phosphorus Magnesium Direct Bilirubin AST ALT Alkaline Phosphatase Lactate Dehydrogenase Troponin T C-Reactive Protein Total Protein Albumin Prealbumin Triglycerides Cholesterol LDL Cholesterol Direct HDL Cholesterol Urine pH Urine WBC (Auto) Urine Creatinine Urine Total Protein Fluid Total Protein Vancomycin Trough Rheumatoid Factor Complement C4 Miscellaneous Test Crossmatch 01/11/17 01/11/17 01/11/17 00:09 04:00 04:00 WBC 15.8 H RBC 3.04 L Hgb 8.2 L Hct 25.5 L MCV MCH 27 L MCHC RDW 17.3 H Plt Count Lymph % (Auto) [place] % (Auto) Lymph # [place] # Baso # Seg Neutrophils % Seg Neuts % (Manual) Lymphocytes % (Manual) Monocytes % (Manual) Eosinophils % (Manual) Basophils % (Manual) Nucleated RBC % Seg Neutrophils # Seg Neutrophils # Man Lymphocytes # (Manual) Monocytes # (Manual) Eosinophils # (Manual) Basophils # (Manual) PT INR Fibrinogen dRVVT Confirm Interp Factor V Activity POC ABG pH POC ABG pCO2 POC ABG pO2 ABG pO2 ABG HCO3 ABG Base Excess ABG Hemoglobin Oxyhemoglobin Sodium Potassium Chloride Carbon Dioxide BUN 78 H Creatinine 1.6 H Glucose 109 H POC Glucose 122 H Lactic Acid Calcium Phosphorus Magnesium Direct Bilirubin AST ALT Alkaline Phosphatase Lactate Dehydrogenase Troponin T C-Reactive Protein Total Protein Albumin Prealbumin Triglycerides Cholesterol LDL Cholesterol Direct HDL Cholesterol Urine pH Urine WBC (Auto) Urine Creatinine Urine Total Protein Fluid Total Protein Vancomycin Trough Rheumatoid Factor Complement C4 Miscellaneous Test Crossmatch 01/11/17 01/11/17 01/11/17 12:46 18:23 23:42 WBC RBC Hgb Hct MCV MCH MCHC RDW Plt Count Lymph % (Auto) [place] % (Auto) Lymph # [place] # Baso # Seg Neutrophils % Seg Neuts % (Manual) Lymphocytes % (Manual) Monocytes % (Manual) Eosinophils % (Manual) Basophils % (Manual) Nucleated RBC % Seg Neutrophils # Seg Neutrophils # Man Lymphocytes # (Manual) Monocytes # (Manual) Eosinophils # (Manual) Basophils # (Manual) PT INR Fibrinogen dRVVT Confirm Interp Factor V Activity POC ABG pH POC ABG pCO2 POC ABG pO2 ABG pO2 ABG HCO3 ABG Base Excess ABG Hemoglobin Oxyhemoglobin Sodium Potassium Chloride Carbon Dioxide BUN Creatinine Glucose POC Glucose 148 H 125 H 124 H Lactic Acid Calcium Phosphorus Magnesium Direct Bilirubin AST ALT Alkaline Phosphatase Lactate Dehydrogenase Troponin T C-Reactive Protein Total Protein Albumin Prealbumin Triglycerides Cholesterol LDL Cholesterol Direct HDL Cholesterol Urine pH Urine WBC (Auto) Urine Creatinine Urine Total Protein Fluid Total Protein Vancomycin Trough Rheumatoid Factor Complement C4 Miscellaneous Test Crossmatch 01/12/17 01/12/17 01/12/17 04:30 04:30 05:47 WBC 15.8 H RBC 3.31 L Hgb 8.9 L Hct 27.9 L MCV MCH 27 L MCHC RDW 17.4 H Plt Count Lymph % (Auto) [place] % (Auto) Lymph # [place] # Baso # Seg Neutrophils % Seg Neuts % (Manual) Lymphocytes % (Manual) Monocytes % (Manual) Eosinophils % (Manual) Basophils % (Manual) Nucleated RBC % Seg Neutrophils # Seg Neutrophils # Man Lymphocytes # (Manual) Monocytes # (Manual) Eosinophils # (Manual) Basophils # (Manual) PT INR Fibrinogen dRVVT Confirm Interp Factor V Activity POC ABG pH POC ABG pCO2 POC ABG pO2 ABG pO2 ABG HCO3 ABG Base Excess ABG Hemoglobin Oxyhemoglobin Sodium Potassium Chloride Carbon Dioxide BUN 57 H Creatinine Glucose 121 H POC Glucose 110 H Lactic Acid Calcium Phosphorus 2.10 L Magnesium Direct Bilirubin AST ALT Alkaline Phosphatase Lactate Dehydrogenase Troponin T C-Reactive Protein Total Protein Albumin Prealbumin Triglycerides Cholesterol LDL Cholesterol Direct HDL Cholesterol Urine pH Urine WBC (Auto) Urine Creatinine Urine Total Protein Fluid Total Protein Vancomycin Trough Rheumatoid Factor Complement C4 Miscellaneous Test Crossmatch 01/12/17 01/12/17 01/12/17 11:35 17:45 23:14 WBC RBC Hgb Hct MCV MCH MCHC RDW Plt Count Lymph % (Auto) [place] % (Auto) Lymph # [place] # Baso # Seg Neutrophils % Seg Neuts % (Manual) Lymphocytes % (Manual) Monocytes % (Manual) Eosinophils % (Manual) Basophils % (Manual) Nucleated RBC % Seg Neutrophils # Seg Neutrophils # Man Lymphocytes # (Manual) Monocytes # (Manual) Eosinophils # (Manual) Basophils # (Manual) PT INR Fibrinogen dRVVT Confirm Interp Factor V Activity POC ABG pH POC ABG pCO2 POC ABG pO2 ABG pO2 ABG HCO3 ABG Base Excess ABG Hemoglobin Oxyhemoglobin Sodium Potassium Chloride Carbon Dioxide BUN Creatinine Glucose POC Glucose 146 H 117 H 123 H Lactic Acid Calcium Phosphorus Magnesium Direct Bilirubin AST ALT Alkaline Phosphatase Lactate Dehydrogenase Troponin T C-Reactive Protein Total Protein Albumin Prealbumin Triglycerides Cholesterol LDL Cholesterol Direct HDL Cholesterol Urine pH Urine WBC (Auto) Urine Creatinine Urine Total Protein Fluid Total Protein Vancomycin Trough Rheumatoid Factor Complement C4 Miscellaneous Test Crossmatch 01/13/17 01/13/17 05:32 06:00 WBC RBC Hgb Hct MCV MCH MCHC RDW Plt Count Lymph % (Auto) [place] % (Auto) Lymph # [place] # Baso # Seg Neutrophils % Seg Neuts % (Manual) Lymphocytes % (Manual) Monocytes % (Manual) Eosinophils % (Manual) Basophils % (Manual) Nucleated RBC % Seg Neutrophils # Seg Neutrophils # Man Lymphocytes # (Manual) Monocytes # (Manual) Eosinophils # (Manual) Basophils # (Manual) PT INR Fibrinogen dRVVT Confirm Interp Factor V Activity POC ABG pH POC ABG pCO2 POC ABG pO2 ABG pO2 ABG HCO3 ABG Base Excess ABG Hemoglobin Oxyhemoglobin Sodium Potassium Chloride Carbon Dioxide BUN 80 H Creatinine 1.4 H Glucose 106 H POC Glucose 106 H Lactic Acid Calcium Phosphorus Magnesium Direct Bilirubin AST ALT Alkaline Phosphatase Lactate Dehydrogenase Troponin T C-Reactive Protein Total Protein Albumin Prealbumin Triglycerides Cholesterol LDL Cholesterol Direct HDL Cholesterol Urine pH Urine WBC (Auto) Urine Creatinine Urine Total Protein Fluid Total Protein Vancomycin Trough Rheumatoid Factor Complement C4 Miscellaneous Test Crossmatch Allied health notes reviewed: RT
[2017-01-13] MEDS: HEPARIN IV PRN (11:29)
[2017-01-13] MEDS: NACL 0.9% IV SCH (12:14)
[2017-01-13] MEDS: MERREM IV SCH (12:14)
[2017-01-13] MEDS: PROTONIX FEEDTUBE SCH (12:16)
[2017-01-13] MEDS: NORVASC PO SCH (12:16)
[2017-01-13] MEDS: DURAGESIC TD SCH (12:17)
[2017-01-13] MEDS: ROBINUL PO SCH ×2 (12:18→22:24)
[2017-01-13] MEDS: TRANSDERM-SCOP TD SCH (13:46)
[2017-01-13] MEDS: CORDARONE PO SCH ×2 (13:49→22:23)
[2017-01-13] MEDS: HEPARIN SUB-Q SCH ×2 (13:49→22:23)
[2017-01-13] MEDS: DAKIN'S HALF STRENGTH TP SCH ×2 (13:50→22:25)
--- NOTE | 2017-01-13 13:58 | Progress Note ---
Assessment and Plan Assessment and plan: Patient is 46-year-old woman with a history of hypertension, diabetes mellitus, asthma, hyperlipidemia, chronic kidney disease and anxiety, who was brought in by family because she couldn't get her words out, her face was also twisted, she was admitted for acute CVA and accelerated hypertension, she had a hx of poor adherence with her medications, and uncontrolled htn. Patient's SBP on admission was noted be greater than 260. TPA was started but this it was discontinued after 5 minutes because her blood pressure became uncontrolled. The TPA was not initiated again because the patient was outside the TPA window. Patient has had a prolonged hospital stay complicated with recurrent severe sepsis. Patient with most recent event also status post cardiac arrest on and received CPR. -Severe Sepsis with septic shock (shock resolved) Patient with multiple episodes of sepsis. Initial episode due to presumed aspiration pneumonia and septic episode on 09/23 from candidemia, then a third episode from peritonitis from gastric perforation from dislodged PEG +/-UTI. Patient was also noted to have had Candidemia with Blood cultures positive for Silvia albicans 09/23, 09/25 but negative on 09/30. Antibiotic discontinued on 12/05 per ID. patient is s/p R thoracentesis on 11/14, 240cc of serous fluid removed, cx of fluid was negative. Also, Stool negative for C. difficile -Surgical wound infection/gram-negative sepsis/candidemia/peritonitis/fungemia. Continue wound care to ostomy sites -Acute hypoxic respiratory failure, status post tracheostomy Patient placed back on ventilation. Patient currently with CPAP mode. Patient failed T-piece trials. Tracheostomy tube leak. Pulmonary following -Acute massive CVA with mass effect; continue antiplatelets and statins CT showed continued evolution of left MCA infarct with slight mass effect and edema, and there is no hemorrhage -PRINCE showed hyperdynamic ventricle with ef of 75%, neither clot nor septal defect seen -MRA Brain shows near complete occlusion of M2 and M3 of the left MCA carotid doppler negative -Echo shows preserved systolic function but does show some left ventricular diastolic dysfunction -continue asa and statin -Oliguric acute kidney injury. Etiology secondary to ATN on CKD. Baseline creatinine is approximately 1.7. -Dislodged PEG tube: Status post repair of gastric perforation which wedge gastrectomy -Paroxysmal atrial fibrillation with rapid ventricular rate, failed cardioversion Continue current medications, Not a candidate for anticoagulation secondary to anemia, thrombocytopenia and massive CVA -Anemia; probably secondary to GI bleeding Patient received multiple units of PRBC in the past, hemoglobin currently stable -Toxic metabolic encephalopathy; supportive care -Diabetes mellitus type 2, Insulin/SSI -Severe protein caloric malnutrition, cont TPN -s/p Thrombocytopenia. Now resolved -DVT prophylaxis, SCDs, no pharmacological agent given anemia , thrombocytopenia , massive stroke -Full code status, very poor prognosis now on TPN 12/18/16: yesterday pt became hypotensive after dialysis and Vasopressin was started by Dr. Lara. She was given iv hydralazine overnight. She is still on Vasopressin, now back in AFib/aflutter with RVR. i d/w Dr. Rollins who recommends iv amiodarone drip without bolus. I also spoke with [facility], Dr. De Leon. per Dr. Rollins: Paroxysmal Afib s/p failed cardioversion on 09/25 on IV lopressor for suppression considered not a candidate for anticoagulation due to severe anemia requiring blood transfusion 12/19/16: still on vasopressin, convert back to sinus, not on Amiodarone. Still on TPN, reorder restraints 01/09/17: I am back on Ms. العراقي' care team Ethics consult pending, family refuse hospice, Insurance denied LTACH When abdominal wound heals, ?place PEG and send to snf. Patient now on recurrent anemia requiring 2 units packed red blood cell: ccm is following Severe Leukocytosis, re-consulted ID. If leukocytosis is not improving should repeat CT abdomen and pelvis to rule out ischemic bowel==>not done, Cr increased to 1.8 today. Will repeat labs in am The high probability of a clinically significant, sudden or life threatening deterioration of the [neurologic, CV] system(s) required my full and direct attention, intervention and personal management. The aggregate critical care time was [32] minutes. This time is in addition to time spent performing reported procedures but includes the following: [x] Data Review and interpretation [x] Patient assessment and monitoring of vital signs [x] Documentation [x] Medication orders and management 01/10/17 Cr has increase, will check electrolytes. Ethics committee awaiting for family meeting but some family has not provided Zul[place], case management with their available times. Hopefully, family after the iday 01/11/17 Hemodialysis today, no change. 01/12-: review labs, await family mtg. History Interval history: Patient seen and examined. Follow up on current diagnosis/respiratory failure. Still unresponsive, Imaging, old records, testing, labs, nursing notes reviewed. Hospitalist Physical - Physical exam Narrative exam: GEN: Ill appearing, trach, staring, in vegatative state NECK: SUPPLE, trach in place, ngt in place CVS: regular currently NORMAL S1S2 LUNGS/CHEST: NORMAL CHEST EXPANSION B, GOOD AIR ENTRY B ABD: SOFT, NTND, 3 ostomy bags in 3 different locations, GBS, NO REBOUND OR GUARDING EXT/SKIN: NO SIGNIFICANT EDEMA OR RASH MSK: no spontaneous movement NEURO: CN 2-12 GROSSLY INTACT, on a ventilator PSY: Comatose, - Constitutional Vitals: Temp Pulse Resp BP Pulse Ox 98.5 F 91 H 20 114/73 91 01/13/17 12:00 01/13/17 13:55 01/13/17 13:55 01/13/17 12:16 01/13/17 11:41 General appearance: Present: no acute distress, well-nourished, obese Results - Labs CBC & Chem 7: 01/12/17 04:30 01/13/17 06:00 Labs: Laboratory Last Values WBC 15.8 K/mm3 (4.5-11.0) H 01/12/17 04:30 RBC 3.31 M/mm3 (3.65-5.03) L 01/12/17 04:30 Hgb 8.9 gm/dl (10.1-14.3) L 01/12/17 04:30 Hct 27.9 % (30.3-42.9) L 01/12/17 04:30 MCV 85 fl (79-97) 01/12/17 04:30 MCH 27 pg (28-32) L 01/12/17 04:30 MCHC 32 % (30-34) 01/12/17 04:30 RDW 17.4 % (13.2-15.2) H 01/12/17 04:30 Plt Count 347 K/mm3 (140-440) 01/12/17 04:30 Lymph % (Auto) 18.5 % (13.4-35.0) 01/03/17 05:00 [place] % (Auto) 10.0 % (0.0-7.3) H 01/03/17 05:00 Eos % (Auto) 0.5 % (0.0-4.3) 01/03/17 05:00 Baso % (Auto) 0.5 % (0.0-1.8) 01/03/17 05:00 Lymph # 2.1 K/mm3 (1.2-5.4) 01/03/17 05:00 [place] # 1.1 K/mm3 (0.0-0.8) H 01/03/17 05:00 Eos # 0.1 K/mm3 (0.0-0.4) 01/03/17 05:00 Baso # 0.1 K/mm3 (0.0-0.1) 01/03/17 05:00 Add Manual Diff Complete 12/19/16 05:02 Total Counted 100 12/19/16 05:02 Seg Neutrophils % 70.5 % (40.0-70.0) H 01/03/17 05:00 Seg Neuts % (Manual) 64.0 % (40.0-70.0) 12/19/16 05:02 Band Neutrophils % 15.0 % 12/19/16 05:02 Lymphocytes % (Manual) 13.0 % (13.4-35.0) L 12/19/16 05:02 Reactive Lymphs % (Man) 0 % 12/19/16 05:02 Monocytes % (Manual) 7.0 % (0.0-7.3) 12/19/16 05:02 Eosinophils % (Manual) 0 % (0.0-4.3) 12/19/16 05:02 Basophils % (Manual) 1.0 % (0.0-1.8) 12/19/16 05:02 Metamyelocytes % 0 % 12/19/16 05:02 Myelocytes % 0 % 12/19/16 05:02 Promyelocytes % 0 % 12/19/16 05:02 Blast Cells % 0 % 12/19/16 05:02 Nucleated RBC % 1.0 % (0.0-0.9) H 12/19/16 05:02 Seg Neutrophils # 7.9 K/mm3 (1.8-7.7) H 01/03/17 05:00 Seg Neutrophils # Man 12.9 K/mm3 (1.8-7.7) H 12/19/16 05:02 Band Neutrophils # 3.0 K/mm3 12/19/16 05:02 Lymphocytes # (Manual) 2.6 K/mm3 (1.2-5.4) 12/19/16 05:02 Abs React Lymphs (Man) 0.0 K/mm3 12/19/16 05:02 Monocytes # (Manual) 1.4 K/mm3 (0.0-0.8) H 12/19/16 05:02 Eosinophils # (Manual) 0.0 K/mm3 (0.0-0.4) 12/19/16 05:02 Basophils # (Manual) 0.2 K/mm3 (0.0-0.1) H 12/19/16 05:02 Metamyelocytes # 0.0 K/mm3 12/19/16 05:02 Myelocytes # 0.0 K/mm3 12/19/16 05:02 Promyelocytes # 0.0 K/mm3 12/19/16 05:02 Blast Cells # 0.0 K/mm3 12/19/16 05:02 Pathologist Review 09/13/16 04:00 WBC Morphology Not Reportable 12/19/16 05:02 Hypersegmented Neuts Not Reportable 12/19/16 05:02 Hyposegmented Neuts Not Reportable 12/19/16 05:02 Hypogranular Neuts Not Reportable 12/19/16 05:02 Smudge Cells Not Reportable 12/19/16 05:02 Toxic Granulation Not Reportable 12/19/16 05:02 Toxic Vacuolation Not Reportable 12/19/16 05:02 Dohle Bodies Not Reportable 12/19/16 05:02 Pelger-Huet Anomaly Not Reportable 12/19/16 05:02 Jasmina Rods Not Reportable 12/19/16 05:02 Platelet Estimate Consistent w auto 12/19/16 05:02 Clumped Platelets Not Reportable 12/19/16 05:02 Plt Clumps, EDTA Not Reportable 12/19/16 05:02 Large Platelets Not Reportable 12/19/16 05:02 Giant Platelets Not Reportable 12/19/16 05:02 Platelet Satelliting Not Reportable 12/19/16 05:02 Plt Morphology Comment Not Reportable 12/19/16 05:02 RBC Morphology Not Reportable 12/19/16 05:02 Dimorphic RBCs Not Reportable 12/19/16 05:02 Polychromasia Not Reportable 12/19/16 05:02 Hypochromasia Not Reportable 12/19/16 05:02 Poikilocytosis Not Reportable 12/19/16 05:02 Anisocytosis Not Reportable 12/19/16 05:02 Microcytosis Not Reportable 12/19/16 05:02 Macrocytosis Not Reportable 12/19/16 05:02 Spherocytes Not Reportable 12/19/16 05:02 Pappenheimer Bodies Not Reportable 12/19/16 05:02 Sickle Cells Not Reportable 12/19/16 05:02 Target Cells Few 12/19/16 05:02 Tear Drop Cells Not Reportable 12/19/16 05:02 Ovalocytes Not Reportable 12/19/16 05:02 Stomatocytes Rare 12/03/16 04:00 Helmet Cells Not Reportable 12/19/16 05:02 [place] Bodies Not Reportable 12/19/16 05:02 [place] Rings Not Reportable 12/19/16 05:02 [place] Cells Not Reportable 12/19/16 05:02 Bite Cells Not Reportable 12/19/16 05:02 Crenated Cell Not Reportable 12/19/16 05:02 Elliptocytes Not Reportable 12/19/16 05:02 Acanthocytes (Spur) Not Reportable 12/19/16 05:02 Rouleaux Not Reportable 12/19/16 05:02 Hemoglobin C Crystals Not Reportable 12/19/16 05:02 Schistocytes Not Reportable 12/19/16 05:02 Malaria parasites Not Reportable 12/19/16 05:02 ESR > 140.0 mm/Hr (0-20) 09/08/16 11:48 Jun Bodies Not Reportable 12/19/16 05:02 Hem Pathologist Commnt No 12/19/16 05:02 PT 16.1 Sec. (12.2-14.9) H 12/28/16 08:30 INR 1.23 (0.87-1.13) H 12/28/16 08:30 APTT 33.0 Sec. (24.2-36.6) 10/09/16 03:45 Thrombin Time 16.8 Sec. (15.1-19.6) 09/03/16 00:10 Fibrinogen 750 mg/dl (211-480) H 09/08/16 11:48 Lupus Anticoagulant see below 09/12/16 09:59 LA PTT Baseline See scanned report 09/12/16 09:59 dRVVT Confirm Interp Positive (Negative) H 09/12/16 09:59 dRVVT Screen 50:50 See scanned report 09/12/16 09:59 dRVVT Mix Interpret See scanned report 09/12/16 09:59 Protein C Antigen 122 % (70-140) 09/08/16 15:35 Free Protein S 97 % normal (50-147) 09/08/16 15:35 Total Protein S 109 % (70-140) 09/08/16 15:35 Antithrombin III Ag 100 % (80-120) 09/08/16 15:35 Heparin Anti-Xa, Unfract Negative (Negative) 09/29/16 13:35 Factor V Activity 182 % (65-150) H 09/08/16 15:35 POC ABG pH 7.503 (7.35-7.45) H 12/19/16 09:36 ABG pH 7.450 pH Units (7.350-7.450) 12/05/16 Unknown POC ABG pCO2 30.1 (35-45) L 12/19/16 09:36 ABG pCO2 29.6 mm Hg 12/05/16 Unknown POC ABG pO2 85 (80-105) 12/19/16 09:36 ABG pO2 75.2 mm Hg (80.0-90.0) L 12/05/16 Unknown POC ABG HCO3 23.6 12/19/16 09:36 ABG HCO3 20.1 mmol/L (20.0-26.0) 12/05/16 Unknown POC ABG Total CO2 25 12/19/16 09:36 POC ABG O2 Sat 97 12/19/16 09:36 ABG O2 Saturation 96.8 % (95.0-99.0) 12/05/16 Unknown ABG O2 Content 9.9 (0.0-44) 12/05/16 Unknown POC ABG Base Excess 1 12/19/16 09:36 ABG Base Excess -3.4 mmol/L (-2.0-3.0) L 12/05/16 Unknown ABG Hemoglobin 7.4 gm/dl (12.0-16.0) L 12/05/16 Unknown ABG Carboxyhemoglobin 1.8 % (0.0-5.0) 12/05/16 Unknown ABG Methemoglobin 0.6 % (0.0-1.5) 12/05/16 Unknown Oxyhemoglobin 94.5 % (95.0-99.0) L 12/05/16 Unknown FiO2 28 % 12/19/16 09:36 Sodium 138 mmol/L (137-145) 01/13/17 06:00 Potassium 4.2 mmol/L (3.6-5.0) 01/13/17 06:00 Chloride 99.5 mmol/L (98-107) 01/13/17 06:00 Carbon Dioxide 23 mmol/L (22-30) 01/13/17 06:00 Anion Gap 20 mmol/L 01/13/17 06:00 BUN 80 mg/dL (7-17) H 01/13/17 06:00 Creatinine 1.4 mg/dL (0.7-1.2) H 01/13/17 06:00 Estimated GFR 49 ml/min 01/13/17 06:00 BUN/Creatinine Ratio 57 % 01/13/17 06:00 Glucose 106 mg/dL (65-100) H 01/13/17 06:00 POC Glucose 168 (70-105) H 01/13/17 12:17 Osmolality 351 Mosm/kg 09/16/16 11:47 Lactic Acid 2.30 mmol/L (0.7-2.0) H* 01/09/17 08:22 Calcium 9.1 mg/dL (8.4-10.2) 01/13/17 06:00 Phosphorus 3.30 mg/dL (2.5-4.5) D 01/13/17 06:00 Magnesium 2.10 mg/dL (1.7-2.3) 01/13/17 06:00 Total Bilirubin 0.50 mg/dL (0.1-1.2) 01/01/17 05:00 Direct Bilirubin 0.3 mg/dL (0-0.2) H 10/10/16 05:00 Indirect Bilirubin 0.1 mg/dL 10/10/16 05:00 AST 35 units/L (5-40) 01/01/17 05:00 ALT 51 units/L (7-56) 01/01/17 05:00 Alkaline Phosphatase 536 units/L (35-129) H 01/01/17 05:00 Ammonia 27.0 umol/L (25-60) 09/07/16 08:37 Lactate Dehydrogenase 196 units/L (91-180) H 11/11/16 06:59 Total Creatine Kinase 121 units/L (30-135) 09/29/16 20:12 CK-MB (CK-2) < 1.0 ng/mL (0.0-4.0) 09/29/16 20:12 CK-MB (CK-2) Rel Index 0.8 (0-4) 09/29/16 20:12 Troponin T 0.204 ng/mL (0.00-0.029) H* 09/29/16 20:12 C-Reactive Protein 24.70 mg/dL (0.00-1.30) H 01/09/17 13:30 Total Protein 6.3 g/dL (6.3-8.2) 01/01/17 05:00 Albumin 1.5 g/dL (3.9-5) L 01/01/17 05:00 Albumin/Globulin Ratio 0.3 % 01/01/17 05:00 Prealbumin 0.110 g/L (0.200-0.400) L 12/29/16 05:15 Triglycerides 137 mg/dL (2-149) 09/29/16 20:12 Cholesterol 31 mg/dL (50-199) L 09/29/16 20:12 LDL Cholesterol Direct 4 mg/dL (50-130) L 09/29/16 20:12 HDL Cholesterol 3 mg/dL (40-59) L 09/29/16 20:12 Cholesterol/HDL Ratio 10.33 % 09/29/16 20:12 Angiotensin Convert Enz See scanned report 09/08/16 11:48 Renin 0.99 ng/mL/h (0.25-5.82) 10/07/16 10:56 Aldosterone <1 ng/dL () 10/07/16 10:56 Aldosterone/Renin Dir see below 10/07/16 10:56 Serotonin Release Assay See scanned report 09/29/16 13:35 TSH 1.010 mlU/mL (0.270-4.200) 09/07/16 08:37 HCG, Qual Negative (Negative) 09/03/16 00:10 Urine Color Yellow (Yellow) 11/05/16 13:09 Urine Turbidity Clear (Clear) 11/05/16 13:09 Urine pH 9.0 (5.0-7.0) H 11/05/16 13:09 Ur Specific [place] 1.011 (1.003-1.030) 11/05/16 13:09 Urine Protein 100 mg/dl mg/dL (Negative) 11/05/16 13:09 Urine Glucose (UA) Neg mg/dL (Negative) 11/05/16 13:09 Urine Ketones Neg mg/dL (Negative) 11/05/16 13:09 Urine Blood Neg (Negative) 11/05/16 13:09 Urine Nitrite Neg (Negative) 11/05/16 13:09 Urine Bilirubin Neg (Negative) 11/05/16 13:09 Urine Urobilinogen < 2.0 mg/dL (<2.0) 11/05/16 13:09 Ur Leukocyte Esterase Neg (Negative) 11/05/16 13:09 Urine WBC (Auto) 4.0 /HPF (0.0-6.0) 11/05/16 13:09 Urine RBC (Auto) 1.0 /HPF (0.0-6.0) 11/05/16 13:09 U Epithel Cells (Auto) 1.0 /HPF (0-13.0) 10/07/16 18:30 Urine Bacteria (Auto) 4+ /HPF (Negative) 11/05/16 13:09 Urine WBC Clumps 2+ /HPF 09/07/16 02:47 Hyaline Casts 4 /LPF 09/07/16 02:47 Urine Mucus Few /HPF 10/07/16 18:30 Urine Yeast (Budding) 3+ /HPF 10/07/16 18:30 Urine Eosinophils None seen (None Seen) 09/07/16 16:00 Urine Total Volume 950 11/12/16 10:18 Urine Creatinine 19.7 mg/dL (0.1-20.0) 11/12/16 10:18 Height (in) 65.0 inches 11/12/16 10:18 Weight (lb) 181.0 lbs 11/12/16 10:18 Creatinine Clearance 5 11/12/16 10:18 Urine Sodium 36 mEq/L 09/16/16 19:19 Urine Total Protein 16 mg/dL (5-11.8) H 09/16/16 19:19 Fluid Total Protein < 3.0 (15.0-45.0) L 11/10/16 14:20 Fluid LDH 123 11/10/16 14:20 Vancomycin Trough 2.3 ug/mL (5.0-20.0) L 09/21/16 13:00 Random Vancomycin 16.5 ug/mL (0-40.0) 11/28/16 09:45 Urine Opiates Screen Presumptive negative 09/03/16 15:11 Urine Methadone Screen Presumptive positive 09/03/16 15:11 Ur Barbiturates Screen Presumptive positive 09/03/16 15:11 Ur Phencyclidine Scrn Presumptive negative 09/03/16 15:11 Ur Amphetamines Screen Presumptive negative 09/03/16 15:11 U Benzodiazepines Scrn Presumptive negative 09/03/16 15:11 Urine Cocaine Screen Presumptive negative 09/03/16 15:11 U Marijuana (THC) Screen Presumptive positive 09/03/16 15:11 Drugs of Abuse Note Disclamer 09/03/16 15:11 Rheumatoid Factor 24 IU/ml (0-13) H 09/08/16 11:48 SAHIL Screen Negative (Negative) 09/07/16 09:20 Proteinase 3 (PR3) Ab <1.0 AI (<1.0) 09/07/16 09:20 Myeloperoxidase Ab <1.0 AI (<1.0) 09/07/16 09:20 Sjogren's Antibody <1.0 AI (<1.0) 09/08/16 15:35 Scl-70 Scleroderma Ab <1.0 AI (<1.0) 09/08/16 15:35 Centromere B Antibody <1.0 AI (<1.0) 09/08/16 12:02 Heparin-induced Plt Ab Negative (Negative) 09/29/16 13:35 UF Heparin High Dose 11 % Release 09/29/16 13:35 SUDHIR UFH Low Dose 0.1 6 % Release 09/29/16 13:35 SUDHIR UFH Low Dose 0.5 8 % Release 09/29/16 13:35 Cardiolipid IgG Ab <14 GPL (<=14) 09/12/16 09:59 Cardiolipid IgA Ab <11 APL (<=11) 09/12/16 09:59 Cardiolipid IgM Ab <12 MPL (<=12) 09/12/16 09:59 Complement C3 148 mg/dL (90-180) 09/07/16 09:20 Complement C4 58 mg/dL (16-47) H 09/07/16 09:20 RPR Nonreactive (Nonreactive) 09/08/16 11:48 Hepatitis A IgM Ab Non-reactive (NonReactive) 09/24/16 14:40 Hep Bs Antigen Non-reactive (Negative) 09/24/16 14:40 Hep B Core IgM Ab Non-reactive (NonReactive) 09/24/16 14:40 Hepatitis C Antibody Non-reactive (NonReactive) 09/24/16 14:40 HIV 1&2 Antibody Rapid Non react (Non React) 09/08/16 11:48 HIV P24 Antigen Non react (Non React) 09/08/16 11:48 Miscellaneous Test Flexitest 1 H 01/09/17 18:45 Blood Type A POSITIVE 01/08/17 10:37 Antibody Screen Negative 01/08/17 10:37 DELORIS Antibody Screen Negative 11/24/16 11:20 Crossmatch See Detail 01/08/17 10:37
[2017-01-13 16:29] LABS: INR 1.16 (0.87-1.13)
[2017-01-13] MEDS ORDERED: TPN ADULT IV SCH (20:00)
[2017-01-13] MEDS ORDERED: INTRALIPID 20% 250 ML IV SCH (20:00)
[2017-01-14] MEDS: HumuLIN R SUB-Q SCH ×4 (00:13→18:36)
[2017-01-14] MEDS: LOPRESSOR PO SCH ×4 (00:13→18:36)
[2017-01-14] MEDS: DUONEB *Not for PRN Use IH SCH ×4 (01:14→20:26)
[2017-01-14] MEDS: REGLAN IV SCH ×2 (05:24→14:27)
[2017-01-14] MEDS: APRESOLINE PO SCH ×2 (05:24→14:27)
[2017-01-14 05:56] LABS: Calcium 8.7 mg/dL (8.4-10.2)
--- NOTE | 2017-01-14 09:45 | Progress Note ---
Assessment and Plan Patient is 46-year-old woman with a history of hypertension, diabetes mellitus, asthma, hyperlipidemia, chronic kidney disease and anxiety, who was brought in by family because she couldn't get her words out, her face was also twisted, she was admitted for acute CVA and accelerated hypertension, she had a hx of poor adherence with her medications, and uncontrolled htn. Patient's SBP on admission was noted be greater than 260. TPA was started but this it was discontinued after 5 minutes because her blood pressure became uncontrolled. The TPA was not initiated again because the patient was outside the TPA window. Patient has had a prolonged hospital stay complicated with recurrent severe sepsis. Patient with most recent event also status post cardiac arrest on , with CPR and ROSC. Acute on chronic Hypoxemic Respiratory Failure ( not tolerating spontaneous breathing trials) Sepsis -recurrent s/p tracheostomy Hypertension Atrial Fibrillation with RVR Acute encephalopathy s/p CVA Oropharyngeal dysphagia Enterococcal bacteremia Sacral Decubitus Ulcer- unstageable s/p debridement Anemia Obesity JUANITA now on hemodialysis Enteric Fistula - VAP bundle addressed -CXR prn, for thoracentesis today - continue NGT to LIS - continue wound care per WCT - Vasopressor if MAP falls < 65mmHg - keep on with daily PSV trials and / or T-piece as tolerated - continue TPN administration (continue TPN; NPO except for meds) - continue airway clearance and secretion management - continue to wean FiO2 for sats > 94% - continue antihypertensives and monitor hemodynamics closely - continue HD/UF per nephrology - continue to follow electrolytes and correct as necessary - continue GI & VTE prophylaxis -per Cardiology--failed cardioversion, not a candidate fro full anticoagulation. No further recommendations for management of atrial fibrillation. Rate control as tolerated by hemodynamics For further interventions per surgical service, as it pertains to the replacement of the PEG tube. .....she remains critically ill on life sustaining interventions including MVS and at risk for further deterioration including ...long term care phlebotomist prognosis remains poor - Patient Problems (1) Acute respiratory failure with hypoxia Current Visit: Yes Status: Acute (2) Acute blood loss anemia Current Visit: Yes Status: Resolved (3) Acute CVA (cerebrovascular accident) Current Visit: Yes Status: Acute (4) Chronic renal insufficiency Current Visit: Yes Status: Acute (5) Uncontrolled hypertension Current Visit: Yes Status: Acute (6) Leukocytosis (leucocytosis) Current Visit: Yes Status: Acute Qualifiers: Leukocytosis type: leukemoid reaction Qualified Code(s): D72.823 - Leukemoid reaction (7) Dislodged gastrostomy tube Current Visit: Yes Status: Acute (8) Fungemia Current Visit: Yes Status: Resolved (9) Cardiopulmonary arrest with successful resuscitation Current Visit: Yes Status: Acute Subjective Date of service: 01/14/17 Principal diagnosis: Acute resp failure on MVS; S/P Acute CVA; Acute Encephalopathy; JUANITA Interval history: Patient is seen today for: Acute resp failure on MVS; S/P Acute CVA; Acute Encephalopathy; JUANITA Seen and examined at bedside; 24hour events reviewed; nursing and respiratory care staff consulted; no adverse overnight events reported to me; she remains critically ill and is not tolerating weaning well; She is scheduled for ultrasound guided thoracentesis Vitals, labs, medications, chart reviewed. Currently on Meropenem per ID Objective - Exam Narrative Exam: Constitutional: appears uncomfortable, other (not tracking) Eyes: non-icteric, other (tracheostomy tube in midline of neck) to ventilator ENT: oropharynx moist, oropharyngeal exudate pre Neck: supple, no JVD Effort: mildly labored Ascultation: Bilateral: diminished breath sounds (bases), rhonchi (and referred upper airway sounds) Percussion: Bilateral: dull (bases) Cardiovascular: regular rate and rhythm, other (no rubs / murmurs) Gastrointestinal: hypoactive bowel sounds, soft, non-tender, non-distended, other (RLQ & LUQ stomas with colostomy bags) Integumentary: decubitus ulcer (sacral; stage 4 s/p surgical debridement), other (no rash; no cellulitis; poor turgor) Extremities: no cyanosis, pulses normal, no ischemia or petechiae, edema (1+ bilaterally) Neurologic: pupils equal and round, unable to assess, other (encephalopathic) Psychiatric: other (unable to assess) Vital Signs - 12hr 01/13/17 01/13/17 01/13/17 22:00 22:23 22:25 Temperature Pulse Rate 95 H 94 H 96 H Pulse Rate [ Apical] Pulse Rate [ Bilateral Throughout] Pulse Rate [ From Monitor] Respiratory 20 Rate Respiratory Rate [Bilateral Throughout] Respiratory 16 Rate [ Generalized] Blood Pressure 151/93 166/102 166/102 O2 Sat by Pulse 100 Oximetry O2 Sat by Pulse Oximetry [ Assessment] 01/13/17 01/13/17 01/13/17 22:49 23:00 23:23 Temperature 98.3 F Pulse Rate 92 H 92 H 91 H Pulse Rate [ Apical] Pulse Rate [ Bilateral Throughout] Pulse Rate [ From Monitor] Respiratory 24 17 Rate Respiratory Rate [Bilateral Throughout] Respiratory Rate [ Generalized] Blood Pressure 116/72 98/59 116/76 O2 Sat by Pulse 86 88 100 Oximetry O2 Sat by Pulse Oximetry [ Assessment] 01/13/17 01/13/17 01/14/17 23:42 23:58 00:00 Temperature Pulse Rate 94 H Pulse Rate [ 95 H Apical] Pulse Rate [ Bilateral Throughout] Pulse Rate [ 95 H From Monitor] Respiratory 22 23 Rate Respiratory Rate [Bilateral Throughout] Respiratory Rate [ Generalized] Blood Pressure 129/80 O2 Sat by Pulse 98 100 Oximetry O2 Sat by Pulse 100 Oximetry [ Assessment] 01/14/17 01/14/17 01/14/17 00:13 01:00 01:14 Temperature Pulse Rate 95 H 85 Pulse Rate [ Apical] Pulse Rate [ 87 Bilateral Throughout] Pulse Rate [ From Monitor] Respiratory 26 H Rate Respiratory 20 Rate [Bilateral Throughout] Respiratory Rate [ Generalized] Blood Pressure 129/80 124/75 O2 Sat by Pulse 100 Oximetry O2 Sat by Pulse Oximetry [ Assessment] 01/14/17 01/14/17 01/14/17 01:22 02:00 03:00 Temperature Pulse Rate 93 H 95 H Pulse Rate [ Apical] Pulse Rate [ 88 Bilateral Throughout] Pulse Rate [ From Monitor] Respiratory 16 25 H Rate Respiratory 20 Rate [Bilateral Throughout] Respiratory Rate [ Generalized] Blood Pressure 134/87 124/81 O2 Sat by Pulse 100 100 Oximetry O2 Sat by Pulse Oximetry [ Assessment] 01/14/17 01/14/17 01/14/17 03:17 03:24 04:00 Temperature 98.6 F Pulse Rate 93 H 95 H Pulse Rate [ 88 Apical] Pulse Rate [ Bilateral Throughout] Pulse Rate [ 88 From Monitor] Respiratory 16 Rate Respiratory Rate [Bilateral Throughout] Respiratory Rate [ Generalized] Blood Pressure 115/75 128/73 O2 Sat by Pulse 100 100 Oximetry O2 Sat by Pulse Oximetry [ Assessment] 01/14/17 01/14/17 01/14/17 05:00 05:23 05:24 Temperature Pulse Rate 92 H 95 H 94 H Pulse Rate [ Apical] Pulse Rate [ Bilateral Throughout] Pulse Rate [ From Monitor] Respiratory 13 Rate Respiratory Rate [Bilateral Throughout] Respiratory Rate [ Generalized] Blood Pressure 128/76 125/76 125/76 O2 Sat by Pulse 100 Oximetry O2 Sat by Pulse Oximetry [ Assessment] 01/14/17 01/14/17 01/14/17 06:00 08:00 08:34 Temperature 98.4 F Pulse Rate 89 91 H Pulse Rate [ Apical] Pulse Rate [ Bilateral Throughout] Pulse Rate [ From Monitor] Respiratory 14 Rate Respiratory Rate [Bilateral Throughout] Respiratory Rate [ Generalized] Blood Pressure 124/70 103/56 O2 Sat by Pulse 100 100 Oximetry O2 Sat by Pulse Oximetry [ Assessment] 01/14/17 01/14/17 01/14/17 08:37 08:40 08:47 Temperature Pulse Rate 90 Pulse Rate [ Apical] Pulse Rate [ 90 91 H Bilateral Throughout] Pulse Rate [ From Monitor] Respiratory 23 Rate Respiratory 32 H 26 H Rate [Bilateral Throughout] Respiratory Rate [ Generalized] Blood Pressure 103/56 O2 Sat by Pulse 98 Oximetry O2 Sat by Pulse Oximetry [ Assessment] Constitutional: appears uncomfortable, other (not tracking) Eyes: non-icteric, other (tracheostomy tube in midline of neck) ENT: oropharynx moist, oropharyngeal exudate pre Neck: supple, no lymphadenopathy, no JVD, other (no thyromegaly) Effort: mildly labored Ascultation: Bilateral: clear, diminished breath sounds (bases), rales, rhonchi (and referred upper airway sounds) Percussion: Bilateral: not dull, dull (bases) Cardiovascular: regular rate and rhythm, other (no rubs / murmurs) Gastrointestinal: hypoactive bowel sounds, soft, non-tender, non-distended, other (RLQ & LUQ stomas with colostomy bags) Integumentary: decubitus ulcer (sacral; stage 4 s/p surgical debridement), other (no rash; no cellulitis; poor turgor) Extremities: no cyanosis, pulses normal, no ischemia or petechiae, edema (1+ bilaterally) Neurologic: pupils equal and round, unable to assess, other (encephalopathic) Psychiatric: other (unable to assess) CBC and BMP: 01/12/17 04:30 01/14/17 05:30 ABG, PT/INR, D-dimer: ABG POC ABG pH 7.503 (7.35-7.45) H 12/19/16 09:36 ABG pH 7.450 pH Units (7.350-7.450) 12/05/16 Unknown POC ABG pCO2 30.1 (35-45) L 12/19/16 09:36 ABG pCO2 29.6 mm Hg 12/05/16 Unknown POC ABG pO2 85 (80-105) 12/19/16 09:36 ABG pO2 75.2 mm Hg (80.0-90.0) L 12/05/16 Unknown POC ABG HCO3 23.6 12/19/16 09:36 POC ABG Total CO2 25 12/19/16 09:36 POC ABG O2 Sat 97 12/19/16 09:36 ABG O2 Saturation 96.8 % (95.0-99.0) 12/05/16 Unknown PT/INR, D-dimer PT 15.4 Sec. (12.2-14.9) H 01/13/17 15:50 INR 1.16 (0.87-1.13) H 01/13/17 15:50 Abnormal lab findings: Abnormal Labs 09/03/16 09/03/16 09/03/16 00:03 00:10 00:10 WBC 13.9 H RBC 5.95 H Hgb Hct 44.0 H MCV 74 L MCH 22 L MCHC RDW 17.5 H Plt Count Lymph % (Auto) [place] % (Auto) Lymph # [place] # Baso # Seg Neutrophils % Seg Neuts % (Manual) Lymphocytes % (Manual) 54.0 H Monocytes % (Manual) Eosinophils % (Manual) Basophils % (Manual) Nucleated RBC % Seg Neutrophils # Seg Neutrophils # Man Lymphocytes # (Manual) 7.5 H Monocytes # (Manual) Eosinophils # (Manual) Basophils # (Manual) PT INR Fibrinogen dRVVT Confirm Interp Factor V Activity POC ABG pH POC ABG pCO2 POC ABG pO2 ABG pO2 ABG HCO3 ABG Base Excess ABG Hemoglobin Oxyhemoglobin Sodium Potassium 2.8 L* Chloride Carbon Dioxide 21 L BUN Creatinine 1.7 H Glucose 159 H POC Glucose 177 H Lactic Acid Calcium Phosphorus Magnesium Direct Bilirubin AST ALT Alkaline Phosphatase Lactate Dehydrogenase Troponin T C-Reactive Protein Total Protein Albumin Prealbumin Triglycerides Cholesterol LDL Cholesterol Direct HDL Cholesterol Urine pH Urine WBC (Auto) Urine Creatinine Urine Total Protein Fluid Total Protein Vancomycin Trough Rheumatoid Factor Complement C4 Miscellaneous Test Crossmatch 09/03/16 09/03/16 09/03/16 12:12 15:07 16:20 WBC RBC Hgb Hct MCV MCH MCHC RDW Plt Count Lymph % (Auto) [place] % (Auto) Lymph # [place] # Baso # Seg Neutrophils % Seg Neuts % (Manual) Lymphocytes % (Manual) Monocytes % (Manual) Eosinophils % (Manual) Basophils % (Manual) Nucleated RBC % Seg Neutrophils # Seg Neutrophils # Man Lymphocytes # (Manual) Monocytes # (Manual) Eosinophils # (Manual) Basophils # (Manual) PT INR Fibrinogen dRVVT Confirm Interp Factor V Activity POC ABG pH 7.452 H POC ABG pCO2 POC ABG pO2 ABG pO2 ABG HCO3 ABG Base Excess ABG Hemoglobin Oxyhemoglobin Sodium Potassium Chloride Carbon Dioxide BUN Creatinine Glucose POC Glucose 178 H Lactic Acid Calcium Phosphorus 2.20 L Magnesium 1.60 L Direct Bilirubin AST ALT Alkaline Phosphatase Lactate Dehydrogenase Troponin T C-Reactive Protein Total Protein Albumin Prealbumin Triglycerides Cholesterol LDL Cholesterol Direct HDL Cholesterol Urine pH Urine WBC (Auto) Urine Creatinine Urine Total Protein Fluid Total Protein Vancomycin Trough Rheumatoid Factor Complement C4 Miscellaneous Test Crossmatch 09/03/16 09/03/16 09/03/16 17:57 17:58 23:50 WBC RBC Hgb Hct MCV MCH MCHC RDW Plt Count Lymph % (Auto) [place] % (Auto) Lymph # [place] # Baso # Seg Neutrophils % Seg Neuts % (Manual) Lymphocytes % (Manual) Monocytes % (Manual) Eosinophils % (Manual) Basophils % (Manual) Nucleated RBC % Seg Neutrophils # Seg Neutrophils # Man Lymphocytes # (Manual) Monocytes # (Manual) Eosinophils # (Manual) Basophils # (Manual) PT INR Fibrinogen dRVVT Confirm Interp Factor V Activity POC ABG pH POC ABG pCO2 POC ABG pO2 ABG pO2 ABG HCO3 ABG Base Excess ABG Hemoglobin Oxyhemoglobin Sodium Potassium Chloride Carbon Dioxide BUN Creatinine Glucose POC Glucose 162 H 145 H Lactic Acid Calcium Phosphorus 2.30 L Magnesium Direct Bilirubin AST ALT Alkaline Phosphatase Lactate Dehydrogenase Troponin T C-Reactive Protein Total Protein Albumin Prealbumin Triglycerides Cholesterol LDL Cholesterol Direct HDL Cholesterol Urine pH Urine WBC (Auto) Urine Creatinine Urine Total Protein Fluid Total Protein Vancomycin Trough Rheumatoid Factor Complement C4 Miscellaneous Test Crossmatch 09/04/16 09/04/16 09/04/16 03:31 03:31 05:42 WBC RBC Hgb 9.7 L D Hct MCV 72 L MCH 23 L MCHC RDW 17.5 H Plt Count Lymph % (Auto) 11.1 L [place] % (Auto) Lymph # [place] # Baso # Seg Neutrophils % 84.3 H Seg Neuts % (Manual) Lymphocytes % (Manual) Monocytes % (Manual) Eosinophils % (Manual) Basophils % (Manual) Nucleated RBC % Seg Neutrophils # 8.9 H Seg Neutrophils # Man Lymphocytes # (Manual) Monocytes # (Manual) Eosinophils # (Manual) Basophils # (Manual) PT INR Fibrinogen dRVVT Confirm Interp Factor V Activity POC ABG pH POC ABG pCO2 POC ABG pO2 ABG pO2 ABG HCO3 ABG Base Excess ABG Hemoglobin Oxyhemoglobin Sodium 135 L Potassium 2.9 L* Chloride 97.2 L Carbon Dioxide 19 L BUN Creatinine 1.7 H Glucose 170 H POC Glucose 152 H Lactic Acid Calcium Phosphorus Magnesium Direct Bilirubin AST ALT Alkaline Phosphatase Lactate Dehydrogenase Troponin T C-Reactive Protein Total Protein Albumin Prealbumin Triglycerides 160 H Cholesterol LDL Cholesterol Direct HDL Cholesterol 31 L Urine pH Urine WBC (Auto) Urine Creatinine Urine Total Protein Fluid Total Protein Vancomycin Trough Rheumatoid Factor Complement C4 Miscellaneous Test Crossmatch 09/04/16 09/04/16 09/04/16 11:34 17:46 23:29 WBC RBC Hgb Hct MCV MCH MCHC RDW Plt Count Lymph % (Auto) [place] % (Auto) Lymph # [place] # Baso # Seg Neutrophils % Seg Neuts % (Manual) Lymphocytes % (Manual) Monocytes % (Manual) Eosinophils % (Manual) Basophils % (Manual) Nucleated RBC % Seg Neutrophils # Seg Neutrophils # Man Lymphocytes # (Manual) Monocytes # (Manual) Eosinophils # (Manual) Basophils # (Manual) PT INR Fibrinogen dRVVT Confirm Interp Factor V Activity POC ABG pH POC ABG pCO2 POC ABG pO2 ABG pO2 ABG HCO3 ABG Base Excess ABG Hemoglobin Oxyhemoglobin Sodium Potassium Chloride Carbon Dioxide BUN Creatinine Glucose POC Glucose 165 H 210 H 139 H Lactic Acid Calcium Phosphorus Magnesium Direct Bilirubin AST ALT Alkaline Phosphatase Lactate Dehydrogenase Troponin T C-Reactive Protein Total Protein Albumin Prealbumin Triglycerides Cholesterol LDL Cholesterol Direct HDL Cholesterol Urine pH Urine WBC (Auto) Urine Creatinine Urine Total Protein Fluid Total Protein Vancomycin Trough Rheumatoid Factor Complement C4 Miscellaneous Test Crossmatch 09/05/16 09/05/16 09/05/16 04:05 04:05 05:38 WBC RBC Hgb Hct MCV 76 L D MCH 23 L MCHC RDW 17.8 H Plt Count Lymph % (Auto) [place] % (Auto) Lymph # [place] # Baso # Seg Neutrophils % Seg Neuts % (Manual) Lymphocytes % (Manual) Monocytes % (Manual) Eosinophils % (Manual) Basophils % (Manual) Nucleated RBC % Seg Neutrophils # Seg Neutrophils # Man Lymphocytes # (Manual) Monocytes # (Manual) Eosinophils # (Manual) Basophils # (Manual) PT INR Fibrinogen dRVVT Confirm Interp Factor V Activity POC ABG pH POC ABG pCO2 POC ABG pO2 ABG pO2 ABG HCO3 ABG Base Excess ABG Hemoglobin Oxyhemoglobin Sodium 134 L Potassium Chloride Carbon Dioxide 18 L BUN Creatinine 1.8 H Glucose 192 H POC Glucose 175 H Lactic Acid Calcium Phosphorus Magnesium Direct Bilirubin AST ALT Alkaline Phosphatase Lactate Dehydrogenase Troponin T C-Reactive Protein Total Protein Albumin Prealbumin Triglycerides Cholesterol LDL Cholesterol Direct HDL Cholesterol Urine pH Urine WBC (Auto) Urine Creatinine Urine Total Protein Fluid Total Protein Vancomycin Trough Rheumatoid Factor Complement C4 Miscellaneous Test Crossmatch 09/05/16 09/05/16 09/05/16 11:38 17:48 23:22 WBC RBC Hgb Hct MCV MCH MCHC RDW Plt Count Lymph % (Auto) [place] % (Auto) Lymph # [place] # Baso # Seg Neutrophils % Seg Neuts % (Manual) Lymphocytes % (Manual) Monocytes % (Manual) Eosinophils % (Manual) Basophils % (Manual) Nucleated RBC % Seg Neutrophils # Seg Neutrophils # Man Lymphocytes # (Manual) Monocytes # (Manual) Eosinophils # (Manual) Basophils # (Manual) PT INR Fibrinogen dRVVT Confirm Interp Factor V Activity POC ABG pH POC ABG pCO2 POC ABG pO2 ABG pO2 ABG HCO3 ABG Base Excess ABG Hemoglobin Oxyhemoglobin Sodium Potassium Chloride Carbon Dioxide BUN Creatinine Glucose POC Glucose 164 H 186 H 195 H Lactic Acid Calcium Phosphorus Magnesium Direct Bilirubin AST ALT Alkaline Phosphatase Lactate Dehydrogenase Troponin T C-Reactive Protein Total Protein Albumin Prealbumin Triglycerides Cholesterol LDL Cholesterol Direct HDL Cholesterol Urine pH Urine WBC (Auto) Urine Creatinine Urine Total Protein Fluid Total Protein Vancomycin Trough Rheumatoid Factor Complement C4 Miscellaneous Test Crossmatch 09/06/16 09/06/16 09/06/16 04:12 05:59 07:32 WBC RBC Hgb Hct MCV MCH MCHC RDW Plt Count Lymph % (Auto) [place] % (Auto) Lymph # [place] # Baso # Seg Neutrophils % Seg Neuts % (Manual) Lymphocytes % (Manual) Monocytes % (Manual) Eosinophils % (Manual) Basophils % (Manual) Nucleated RBC % Seg Neutrophils # Seg Neutrophils # Man Lymphocytes # (Manual) Monocytes # (Manual) Eosinophils # (Manual) Basophils # (Manual) PT INR Fibrinogen dRVVT Confirm Interp Factor V Activity POC ABG pH 7.514 H POC ABG pCO2 29.1 L POC ABG pO2 72 L ABG pO2 ABG HCO3 ABG Base Excess ABG Hemoglobin Oxyhemoglobin Sodium 133 L Potassium 3.4 L Chloride 94.9 L Carbon Dioxide 19 L BUN 30 H Creatinine 2.1 H Glucose 139 H POC Glucose 146 H Lactic Acid Calcium Phosphorus Magnesium Direct Bilirubin AST ALT Alkaline Phosphatase Lactate Dehydrogenase Troponin T C-Reactive Protein Total Protein Albumin Prealbumin Triglycerides Cholesterol LDL Cholesterol Direct HDL Cholesterol Urine pH Urine WBC (Auto) Urine Creatinine Urine Total Protein Fluid Total Protein Vancomycin Trough Rheumatoid Factor Complement C4 Miscellaneous Test Crossmatch 09/06/16 09/06/16 09/06/16 11:57 17:58 19:02 WBC RBC Hgb Hct MCV MCH MCHC RDW Plt Count Lymph % (Auto) [place] % (Auto) Lymph # [place] # Baso # Seg Neutrophils % Seg Neuts % (Manual) Lymphocytes % (Manual) Monocytes % (Manual) Eosinophils % (Manual) Basophils % (Manual) Nucleated RBC % Seg Neutrophils # Seg Neutrophils # Man Lymphocytes # (Manual) Monocytes # (Manual) Eosinophils # (Manual) Basophils # (Manual) PT INR Fibrinogen dRVVT Confirm Interp Factor V Activity POC ABG pH 7.465 H POC ABG pCO2 32.0 L POC ABG pO2 ABG pO2 ABG HCO3 ABG Base Excess ABG Hemoglobin Oxyhemoglobin Sodium Potassium Chloride Carbon Dioxide BUN Creatinine Glucose POC Glucose 165 H 160 H Lactic Acid Calcium Phosphorus Magnesium Direct Bilirubin AST ALT Alkaline Phosphatase Lactate Dehydrogenase Troponin T C-Reactive Protein Total Protein Albumin Prealbumin Triglycerides Cholesterol LDL Cholesterol Direct HDL Cholesterol Urine pH Urine WBC (Auto) Urine Creatinine Urine Total Protein Fluid Total Protein Vancomycin Trough Rheumatoid Factor Complement C4 Miscellaneous Test Crossmatch 09/06/16 09/07/16 09/07/16 23:45 02:47 02:47 WBC RBC Hgb Hct MCV MCH MCHC RDW Plt Count Lymph % (Auto) [place] % (Auto) Lymph # [place] # Baso # Seg Neutrophils % Seg Neuts % (Manual) Lymphocytes % (Manual) Monocytes % (Manual) Eosinophils % (Manual) Basophils % (Manual) Nucleated RBC % Seg Neutrophils # Seg Neutrophils # Man Lymphocytes # (Manual) Monocytes # (Manual) Eosinophils # (Manual) Basophils # (Manual) PT INR Fibrinogen dRVVT Confirm Interp Factor V Activity POC ABG pH POC ABG pCO2 POC ABG pO2 ABG pO2 ABG HCO3 ABG Base Excess ABG Hemoglobin Oxyhemoglobin Sodium Potassium Chloride Carbon Dioxide BUN Creatinine Glucose POC Glucose 204 H Lactic Acid Calcium Phosphorus Magnesium Direct Bilirubin AST ALT Alkaline Phosphatase Lactate Dehydrogenase Troponin T C-Reactive Protein Total Protein Albumin Prealbumin Triglycerides Cholesterol LDL Cholesterol Direct HDL Cholesterol Urine pH Urine WBC (Auto) 68.0 H Urine Creatinine 106.1 H Urine Total Protein Fluid Total Protein Vancomycin Trough Rheumatoid Factor Complement C4 Miscellaneous Test Crossmatch 09/07/16 09/07/16 09/07/16 04:50 06:19 06:39 WBC RBC Hgb Hct MCV MCH MCHC RDW Plt Count Lymph % (Auto) [place] % (Auto) Lymph # [place] # Baso # Seg Neutrophils % Seg Neuts % (Manual) Lymphocytes % (Manual) Monocytes % (Manual) Eosinophils % (Manual) Basophils % (Manual) Nucleated RBC % Seg Neutrophils # Seg Neutrophils # Man Lymphocytes # (Manual) Monocytes # (Manual) Eosinophils # (Manual) Basophils # (Manual) PT INR Fibrinogen dRVVT Confirm Interp Factor V Activity POC ABG pH 7.457 H POC ABG pCO2 32.1 L POC ABG pO2 76 L ABG pO2 ABG HCO3 ABG Base Excess ABG Hemoglobin Oxyhemoglobin Sodium 132 L Potassium Chloride 94.7 L Carbon Dioxide BUN 53 H Creatinine 2.9 H Glucose 151 H POC Glucose 149 H Lactic Acid Calcium Phosphorus Magnesium Direct Bilirubin AST ALT Alkaline Phosphatase Lactate Dehydrogenase Troponin T C-Reactive Protein Total Protein Albumin Prealbumin Triglycerides Cholesterol LDL Cholesterol Direct HDL Cholesterol Urine pH Urine WBC (Auto) Urine Creatinine Urine Total Protein Fluid Total Protein Vancomycin Trough Rheumatoid Factor Complement C4 Miscellaneous Test Crossmatch 09/07/16 09/07/16 09/07/16 09:20 11:43 11:43 WBC 19.4 H RBC Hgb 8.3 L Hct 26.4 L D MCV 72 L D MCH 22 L MCHC RDW 17.9 H Plt Count Lymph % (Auto) 8.5 L [place] % (Auto) Lymph # [place] # 1.0 H Baso # Seg Neutrophils % 85.8 H Seg Neuts % (Manual) Lymphocytes % (Manual) Monocytes % (Manual) Eosinophils % (Manual) Basophils % (Manual) Nucleated RBC % Seg Neutrophils # 16.6 H Seg Neutrophils # Man Lymphocytes # (Manual) Monocytes # (Manual) Eosinophils # (Manual) Basophils # (Manual) PT INR Fibrinogen dRVVT Confirm Interp Factor V Activity POC ABG pH POC ABG pCO2 POC ABG pO2 ABG pO2 ABG HCO3 ABG Base Excess ABG Hemoglobin Oxyhemoglobin Sodium 134 L Potassium Chloride 97.2 L Carbon Dioxide 20 L BUN 58 H Creatinine 2.9 H Glucose 147 H POC Glucose Lactic Acid Calcium Phosphorus 2.40 L Magnesium 2.40 H Direct Bilirubin AST ALT Alkaline Phosphatase Lactate Dehydrogenase Troponin T C-Reactive Protein Total Protein 5.8 L Albumin 2.2 L Prealbumin Triglycerides Cholesterol LDL Cholesterol Direct HDL Cholesterol Urine pH Urine WBC (Auto) Urine Creatinine Urine Total Protein Fluid Total Protein Vancomycin Trough Rheumatoid Factor Complement C4 58 H Miscellaneous Test Crossmatch 09/07/16 09/07/16 09/07/16 11:50 16:00 17:31 WBC RBC Hgb Hct MCV MCH MCHC RDW Plt Count Lymph % (Auto) [place] % (Auto) Lymph # [place] # Baso # Seg Neutrophils % Seg Neuts % (Manual) Lymphocytes % (Manual) Monocytes % (Manual) Eosinophils % (Manual) Basophils % (Manual) Nucleated RBC % Seg Neutrophils # Seg Neutrophils # Man Lymphocytes # (Manual) Monocytes # (Manual) Eosinophils # (Manual) Basophils # (Manual) PT INR Fibrinogen dRVVT Confirm Interp Factor V Activity POC ABG pH POC ABG pCO2 POC ABG pO2 158 H ABG pO2 ABG HCO3 ABG Base Excess ABG Hemoglobin Oxyhemoglobin Sodium Potassium Chloride Carbon Dioxide BUN Creatinine Glucose POC Glucose 175 H Lactic Acid Calcium Phosphorus Magnesium Direct Bilirubin AST ALT Alkaline Phosphatase Lactate Dehydrogenase Troponin T C-Reactive Protein Total Protein Albumin Prealbumin Triglycerides Cholesterol LDL Cholesterol Direct HDL Cholesterol Urine pH Urine WBC (Auto) Urine Creatinine 66.3 H Urine Total Protein Fluid Total Protein Vancomycin Trough Rheumatoid Factor Complement C4 Miscellaneous Test Crossmatch 09/07/16 09/08/16 09/08/16 23:50 05:46 06:18 WBC 17.8 H RBC 3.58 L Hgb 8.1 L Hct 25.5 L MCV 71 L MCH 23 L MCHC RDW 18.4 H Plt Count Lymph % (Auto) [place] % (Auto) Lymph # [place] # Baso # Seg Neutrophils % Seg Neuts % (Manual) 92.0 H Lymphocytes % (Manual) 6.0 L Monocytes % (Manual) Eosinophils % (Manual) Basophils % (Manual) Nucleated RBC % Seg Neutrophils # Seg Neutrophils # Man 16.4 H Lymphocytes # (Manual) 1.1 L Monocytes # (Manual) Eosinophils # (Manual) Basophils # (Manual) PT INR Fibrinogen dRVVT Confirm Interp Factor V Activity POC ABG pH POC ABG pCO2 34.3 L POC ABG pO2 71 L ABG pO2 ABG HCO3 ABG Base Excess ABG Hemoglobin Oxyhemoglobin Sodium Potassium Chloride Carbon Dioxide BUN Creatinine Glucose POC Glucose 216 H Lactic Acid Calcium Phosphorus Magnesium Direct Bilirubin AST ALT Alkaline Phosphatase Lactate Dehydrogenase Troponin T C-Reactive Protein Total Protein Albumin Prealbumin Triglycerides Cholesterol LDL Cholesterol Direct HDL Cholesterol Urine pH Urine WBC (Auto) Urine Creatinine Urine Total Protein Fluid Total Protein Vancomycin Trough Rheumatoid Factor Complement C4 Miscellaneous Test Crossmatch 09/08/16 09/08/16 09/08/16 06:18 06:51 10:55 WBC RBC Hgb Hct MCV MCH MCHC RDW Plt Count Lymph % (Auto) [place] % (Auto) Lymph # [place] # Baso # Seg Neutrophils % Seg Neuts % (Manual) Lymphocytes % (Manual) Monocytes % (Manual) Eosinophils % (Manual) Basophils % (Manual) Nucleated RBC % Seg Neutrophils # Seg Neutrophils # Man Lymphocytes # (Manual) Monocytes # (Manual) Eosinophils # (Manual) Basophils # (Manual) PT INR Fibrinogen dRVVT Confirm Interp Factor V Activity POC ABG pH POC ABG pCO2 POC ABG pO2 ABG pO2 ABG HCO3 ABG Base Excess ABG Hemoglobin Oxyhemoglobin Sodium 133 L Potassium Chloride 96.9 L Carbon Dioxide 20 L BUN 63 H Creatinine 2.7 H Glucose 195 H POC Glucose 204 H 169 H Lactic Acid Calcium Phosphorus Magnesium Direct Bilirubin AST ALT Alkaline Phosphatase Lactate Dehydrogenase Troponin T C-Reactive Protein Total Protein Albumin Prealbumin Triglycerides Cholesterol LDL Cholesterol Direct HDL Cholesterol Urine pH Urine WBC (Auto) Urine Creatinine Urine Total Protein Fluid Total Protein Vancomycin Trough Rheumatoid Factor Complement C4 Miscellaneous Test Crossmatch 09/08/16 09/08/16 09/08/16 11:48 11:48 11:48 WBC RBC Hgb Hct MCV MCH MCHC RDW Plt Count Lymph % (Auto) [place] % (Auto) Lymph # [place] # Baso # Seg Neutrophils % Seg Neuts % (Manual) Lymphocytes % (Manual) Monocytes % (Manual) Eosinophils % (Manual) Basophils % (Manual) Nucleated RBC % Seg Neutrophils # Seg Neutrophils # Man Lymphocytes # (Manual) Monocytes # (Manual) Eosinophils # (Manual) Basophils # (Manual) PT INR Fibrinogen 750 H dRVVT Confirm Interp Factor V Activity POC ABG pH POC ABG pCO2 POC ABG pO2 ABG pO2 ABG HCO3 ABG Base Excess ABG Hemoglobin Oxyhemoglobin Sodium Potassium Chloride Carbon Dioxide BUN Creatinine Glucose POC Glucose Lactic Acid Calcium Phosphorus Magnesium Direct Bilirubin AST ALT Alkaline Phosphatase Lactate Dehydrogenase Troponin T C-Reactive Protein 15.70 H Total Protein Albumin Prealbumin Triglycerides Cholesterol LDL Cholesterol Direct HDL Cholesterol Urine pH Urine WBC (Auto) Urine Creatinine Urine Total Protein Fluid Total Protein Vancomycin Trough Rheumatoid Factor 24 H Complement C4 Miscellaneous Test Crossmatch 09/08/16 09/08/16 09/09/16 15:35 18:25 00:24 WBC RBC Hgb Hct MCV MCH MCHC RDW Plt Count Lymph % (Auto) [place] % (Auto) Lymph # [place] # Baso # Seg Neutrophils % Seg Neuts % (Manual) Lymphocytes % (Manual) Monocytes % (Manual) Eosinophils % (Manual) Basophils % (Manual) Nucleated RBC % Seg Neutrophils # Seg Neutrophils # Man Lymphocytes # (Manual) Monocytes # (Manual) Eosinophils # (Manual) Basophils # (Manual) PT INR Fibrinogen dRVVT Confirm Interp Factor V Activity 182 H POC ABG pH POC ABG pCO2 POC ABG pO2 ABG pO2 ABG HCO3 ABG Base Excess ABG Hemoglobin Oxyhemoglobin Sodium Potassium Chloride Carbon Dioxide BUN Creatinine Glucose POC Glucose 184 H 216 H Lactic Acid Calcium Phosphorus Magnesium Direct Bilirubin AST ALT Alkaline Phosphatase Lactate Dehydrogenase Troponin T C-Reactive Protein Total Protein Albumin Prealbumin Triglycerides Cholesterol LDL Cholesterol Direct HDL Cholesterol Urine pH Urine WBC (Auto) Urine Creatinine Urine Total Protein Fluid Total Protein Vancomycin Trough Rheumatoid Factor Complement C4 Miscellaneous Test Crossmatch 09/09/16 09/09/16 09/09/16 03:00 03:00 04:04 WBC 27.9 H RBC Hgb 8.7 L Hct 28.1 L MCV 72 L MCH 22 L MCHC RDW 18.4 H Plt Count 485 H Lymph % (Auto) [place] % (Auto) Lymph # [place] # Baso # Seg Neutrophils % Seg Neuts % (Manual) 77.0 H Lymphocytes % (Manual) 9.0 L Monocytes % (Manual) Eosinophils % (Manual) Basophils % (Manual) Nucleated RBC % Seg Neutrophils # Seg Neutrophils # Man 21.5 H Lymphocytes # (Manual) Monocytes # (Manual) 2.0 H Eosinophils # (Manual) Basophils # (Manual) PT INR Fibrinogen dRVVT Confirm Interp Factor V Activity POC ABG pH POC ABG pCO2 POC ABG pO2 121 H ABG pO2 ABG HCO3 ABG Base Excess ABG Hemoglobin Oxyhemoglobin Sodium 135 L Potassium Chloride 96.3 L Carbon Dioxide 21 L BUN 83 H Creatinine 3.0 H Glucose 135 H POC Glucose Lactic Acid Calcium Phosphorus Magnesium Direct Bilirubin AST ALT Alkaline Phosphatase Lactate Dehydrogenase Troponin T C-Reactive Protein Total Protein Albumin Prealbumin Triglycerides Cholesterol LDL Cholesterol Direct HDL Cholesterol Urine pH Urine WBC (Auto) Urine Creatinine Urine Total Protein Fluid Total Protein Vancomycin Trough Rheumatoid Factor Complement C4 Miscellaneous Test Crossmatch 09/09/16 09/09/16 09/09/16 05:41 11:55 14:13 WBC RBC Hgb Hct MCV MCH MCHC RDW Plt Count Lymph % (Auto) [place] % (Auto) Lymph # [place] # Baso # Seg Neutrophils % Seg Neuts % (Manual) Lymphocytes % (Manual) Monocytes % (Manual) Eosinophils % (Manual) Basophils % (Manual) Nucleated RBC % Seg Neutrophils # Seg Neutrophils # Man Lymphocytes # (Manual) Monocytes # (Manual) Eosinophils # (Manual) Basophils # (Manual) PT INR Fibrinogen dRVVT Confirm Interp Factor V Activity POC ABG pH POC ABG pCO2 POC ABG pO2 ABG pO2 ABG HCO3 ABG Base Excess ABG Hemoglobin Oxyhemoglobin Sodium Potassium Chloride Carbon Dioxide BUN Creatinine Glucose POC Glucose 155 H 186 H Lactic Acid Calcium Phosphorus Magnesium Direct Bilirubin AST ALT Alkaline Phosphatase Lactate Dehydrogenase Troponin T C-Reactive Protein Total Protein Albumin Prealbumin Triglycerides Cholesterol LDL Cholesterol Direct HDL Cholesterol Urine pH Urine WBC (Auto) 25.0 H Urine Creatinine Urine Total Protein Fluid Total Protein Vancomycin Trough Rheumatoid Factor Complement C4 Miscellaneous Test Crossmatch 09/09/16 09/09/16 09/10/16 17:33 23:13 05:09 WBC RBC Hgb Hct MCV MCH MCHC RDW Plt Count Lymph % (Auto) [place] % (Auto) Lymph # [place] # Baso # Seg Neutrophils % Seg Neuts % (Manual) Lymphocytes % (Manual) Monocytes % (Manual) Eosinophils % (Manual) Basophils % (Manual) Nucleated RBC % Seg Neutrophils # Seg Neutrophils # Man Lymphocytes # (Manual) Monocytes # (Manual) Eosinophils # (Manual) Basophils # (Manual) PT INR Fibrinogen dRVVT Confirm Interp Factor V Activity POC ABG pH POC ABG pCO2 POC ABG pO2 74 L ABG pO2 ABG HCO3 ABG Base Excess ABG Hemoglobin Oxyhemoglobin Sodium Potassium Chloride Carbon Dioxide BUN Creatinine Glucose POC Glucose 211 H 215 H Lactic Acid Calcium Phosphorus Magnesium Direct Bilirubin AST ALT Alkaline Phosphatase Lactate Dehydrogenase Troponin T C-Reactive Protein Total Protein Albumin Prealbumin Triglycerides Cholesterol LDL Cholesterol Direct HDL Cholesterol Urine pH Urine WBC (Auto) Urine Creatinine Urine Total Protein Fluid Total Protein Vancomycin Trough Rheumatoid Factor Complement C4 Miscellaneous Test Crossmatch 09/10/16 09/10/16 09/10/16 05:17 05:17 11:31 WBC 15.8 H RBC 3.25 L Hgb 7.3 L Hct 22.9 L MCV 71 L MCH 23 L MCHC RDW 18.4 H Plt Count Lymph % (Auto) [place] % (Auto) Lymph # [place] # Baso # Seg Neutrophils % Seg Neuts % (Manual) 91.0 H Lymphocytes % (Manual) 4.0 L Monocytes % (Manual) Eosinophils % (Manual) Basophils % (Manual) Nucleated RBC % Seg Neutrophils # Seg Neutrophils # Man 14.4 H Lymphocytes # (Manual) 0.6 L Monocytes # (Manual) Eosinophils # (Manual) Basophils # (Manual) PT INR Fibrinogen dRVVT Confirm Interp Factor V Activity POC ABG pH POC ABG pCO2 POC ABG pO2 ABG pO2 ABG HCO3 ABG Base Excess ABG Hemoglobin Oxyhemoglobin Sodium Potassium Chloride Carbon Dioxide 21 L BUN 93 H Creatinine 2.9 H Glucose 146 H POC Glucose 188 H Lactic Acid Calcium 8.1 L Phosphorus Magnesium Direct Bilirubin AST ALT Alkaline Phosphatase Lactate Dehydrogenase Troponin T C-Reactive Protein Total Protein Albumin Prealbumin Triglycerides Cholesterol LDL Cholesterol Direct HDL Cholesterol Urine pH Urine WBC (Auto) Urine Creatinine Urine Total Protein Fluid Total Protein Vancomycin Trough Rheumatoid Factor Complement C4 Miscellaneous Test Crossmatch 09/10/16 09/10/16 09/10/16 13:17 17:20 23:32 WBC RBC Hgb Hct MCV MCH MCHC RDW Plt Count Lymph % (Auto) [place] % (Auto) Lymph # [place] # Baso # Seg Neutrophils % Seg Neuts % (Manual) Lymphocytes % (Manual) Monocytes % (Manual) Eosinophils % (Manual) Basophils % (Manual) Nucleated RBC % Seg Neutrophils # Seg Neutrophils # Man Lymphocytes # (Manual) Monocytes # (Manual) Eosinophils # (Manual) Basophils # (Manual) PT INR Fibrinogen dRVVT Confirm Interp Factor V Activity POC ABG pH POC ABG pCO2 POC ABG pO2 ABG pO2 ABG HCO3 ABG Base Excess ABG Hemoglobin Oxyhemoglobin Sodium Potassium Chloride Carbon Dioxide BUN Creatinine Glucose POC Glucose 199 H 186 H Lactic Acid Calcium Phosphorus Magnesium Direct Bilirubin AST ALT Alkaline Phosphatase Lactate Dehydrogenase Troponin T C-Reactive Protein Total Protein Albumin Prealbumin Triglycerides Cholesterol LDL Cholesterol Direct HDL Cholesterol Urine pH Urine WBC (Auto) Urine Creatinine Urine Total Protein Fluid Total Protein Vancomycin Trough Rheumatoid Factor Complement C4 Miscellaneous Test Crossmatch See Detail 09/11/16 09/11/16 09/11/16 05:10 05:10 05:17 WBC 28.4 H RBC Hgb 9.2 L Hct 29.3 L D MCV 73 L MCH 23 L MCHC RDW 18.9 H Plt Count 452 H Lymph % (Auto) [place] % (Auto) Lymph # [place] # Baso # Seg Neutrophils % Seg Neuts % (Manual) 89.5 H Lymphocytes % (Manual) 2.0 L Monocytes % (Manual) Eosinophils % (Manual) Basophils % (Manual) Nucleated RBC % Seg Neutrophils # Seg Neutrophils # Man 25.4 H Lymphocytes # (Manual) 0.6 L Monocytes # (Manual) 1.3 H Eosinophils # (Manual) Basophils # (Manual) PT INR Fibrinogen dRVVT Confirm Interp Factor V Activity POC ABG pH POC ABG pCO2 POC ABG pO2 ABG pO2 ABG HCO3 ABG Base Excess ABG Hemoglobin Oxyhemoglobin Sodium 136 L Potassium Chloride Carbon Dioxide 18 L BUN 107 H Creatinine 2.6 H Glucose 187 H POC Glucose 230 H Lactic Acid Calcium 8.3 L Phosphorus Magnesium Direct Bilirubin AST ALT Alkaline Phosphatase Lactate Dehydrogenase Troponin T C-Reactive Protein Total Protein Albumin Prealbumin Triglycerides Cholesterol LDL Cholesterol Direct HDL Cholesterol Urine pH Urine WBC (Auto) Urine Creatinine Urine Total Protein Fluid Total Protein Vancomycin Trough Rheumatoid Factor Complement C4 Miscellaneous Test Crossmatch 09/11/16 09/11/16 09/11/16 05:55 12:02 17:32 WBC RBC Hgb Hct MCV MCH MCHC RDW Plt Count Lymph % (Auto) [place] % (Auto) Lymph # [place] # Baso # Seg Neutrophils % Seg Neuts % (Manual) Lymphocytes % (Manual) Monocytes % (Manual) Eosinophils % (Manual) Basophils % (Manual) Nucleated RBC % Seg Neutrophils # Seg Neutrophils # Man Lymphocytes # (Manual) Monocytes # (Manual) Eosinophils # (Manual) Basophils # (Manual) PT INR Fibrinogen dRVVT Confirm Interp Factor V Activity POC ABG pH POC ABG pCO2 33.8 L POC ABG pO2 ABG pO2 ABG HCO3 ABG Base Excess ABG Hemoglobin Oxyhemoglobin Sodium Potassium Chloride Carbon Dioxide BUN Creatinine Glucose POC Glucose 191 H 239 H Lactic Acid Calcium Phosphorus Magnesium Direct Bilirubin AST ALT Alkaline Phosphatase Lactate Dehydrogenase Troponin T C-Reactive Protein Total Protein Albumin Prealbumin Triglycerides Cholesterol LDL Cholesterol Direct HDL Cholesterol Urine pH Urine WBC (Auto) Urine Creatinine Urine Total Protein Fluid Total Protein Vancomycin Trough Rheumatoid Factor Complement C4 Miscellaneous Test Crossmatch 09/11/16 09/12/16 09/12/16 23:52 05:09 05:32 WBC RBC Hgb Hct MCV MCH MCHC RDW Plt Count Lymph % (Auto) [place] % (Auto) Lymph # [place] # Baso # Seg Neutrophils % Seg Neuts % (Manual) Lymphocytes % (Manual) Monocytes % (Manual) Eosinophils % (Manual) Basophils % (Manual) Nucleated RBC % Seg Neutrophils # Seg Neutrophils # Man Lymphocytes # (Manual) Monocytes # (Manual) Eosinophils # (Manual) Basophils # (Manual) PT INR Fibrinogen dRVVT Confirm Interp Factor V Activity POC ABG pH POC ABG pCO2 34.6 L POC ABG pO2 ABG pO2 ABG HCO3 ABG Base Excess ABG Hemoglobin Oxyhemoglobin Sodium Potassium Chloride Carbon Dioxide BUN Creatinine Glucose POC Glucose 265 H 184 H Lactic Acid Calcium Phosphorus Magnesium Direct Bilirubin AST ALT Alkaline Phosphatase Lactate Dehydrogenase Troponin T C-Reactive Protein Total Protein Albumin Prealbumin Triglycerides Cholesterol LDL Cholesterol Direct HDL Cholesterol Urine pH Urine WBC (Auto) Urine Creatinine Urine Total Protein Fluid Total Protein Vancomycin Trough Rheumatoid Factor Complement C4 Miscellaneous Test Crossmatch 09/12/16 09/12/16 09/12/16 06:45 06:45 07:22 WBC 31.7 H RBC 3.54 L Hgb 8.3 L Hct 25.9 L MCV 73 L MCH 23 L MCHC RDW 18.9 H Plt Count Lymph % (Auto) [place] % (Auto) Lymph # [place] # Baso # Seg Neutrophils % Seg Neuts % (Manual) 88.5 H Lymphocytes % (Manual) 4.5 L Monocytes % (Manual) Eosinophils % (Manual) Basophils % (Manual) Nucleated RBC % Seg Neutrophils # Seg Neutrophils # Man 28.1 H Lymphocytes # (Manual) Monocytes # (Manual) 1.0 H Eosinophils # (Manual) Basophils # (Manual) PT INR Fibrinogen dRVVT Confirm Interp Factor V Activity POC ABG pH POC ABG pCO2 POC ABG pO2 ABG pO2 ABG HCO3 ABG Base Excess ABG Hemoglobin Oxyhemoglobin Sodium Potassium Chloride Carbon Dioxide 20 L BUN 115 H Creatinine 2.7 H Glucose 165 H POC Glucose Lactic Acid Calcium 8.0 L Phosphorus Magnesium Direct Bilirubin AST ALT Alkaline Phosphatase Lactate Dehydrogenase Troponin T C-Reactive Protein Total Protein Albumin Prealbumin Triglycerides 217 H Cholesterol LDL Cholesterol Direct HDL Cholesterol Urine pH Urine WBC (Auto) Urine Creatinine Urine Total Protein Fluid Total Protein Vancomycin Trough Rheumatoid Factor Complement C4 Miscellaneous Test Crossmatch 09/12/16 09/12/16 09/12/16 07:22 09:59 12:21 WBC RBC Hgb Hct MCV MCH MCHC RDW Plt Count Lymph % (Auto) [place] % (Auto) Lymph # [place] # Baso # Seg Neutrophils % Seg Neuts % (Manual) Lymphocytes % (Manual) Monocytes % (Manual) Eosinophils % (Manual) Basophils % (Manual) Nucleated RBC % Seg Neutrophils # Seg Neutrophils # Man Lymphocytes # (Manual) Monocytes # (Manual) Eosinophils # (Manual) Basophils # (Manual) PT INR Fibrinogen dRVVT Confirm Interp Positive H Factor V Activity POC ABG pH POC ABG pCO2 POC ABG pO2 ABG pO2 ABG HCO3 ABG Base Excess ABG Hemoglobin Oxyhemoglobin Sodium Potassium Chloride Carbon Dioxide BUN Creatinine Glucose POC Glucose 224 H Lactic Acid Calcium Phosphorus Magnesium Direct Bilirubin AST ALT Alkaline Phosphatase Lactate Dehydrogenase Troponin T C-Reactive Protein 1.70 H Total Protein Albumin Prealbumin Triglycerides Cholesterol LDL Cholesterol Direct HDL Cholesterol Urine pH Urine WBC (Auto) Urine Creatinine Urine Total Protein Fluid Total Protein Vancomycin Trough Rheumatoid Factor Complement C4 Miscellaneous Test Crossmatch 09/12/16 09/12/16 09/13/16 16:51 23:28 04:00 WBC 45.0 H* RBC Hgb 9.4 L Hct MCV 75 L MCH 23 L MCHC RDW 19.0 H Plt Count 470 H Lymph % (Auto) [place] % (Auto) Lymph # [place] # Baso # Seg Neutrophils % Seg Neuts % (Manual) 89.0 H Lymphocytes % (Manual) 5.0 L Monocytes % (Manual) Eosinophils % (Manual) Basophils % (Manual) Nucleated RBC % Seg Neutrophils # Seg Neutrophils # Man 40.1 H Lymphocytes # (Manual) Monocytes # (Manual) Eosinophils # (Manual) Basophils # (Manual) PT INR Fibrinogen dRVVT Confirm Interp Factor V Activity POC ABG pH POC ABG pCO2 POC ABG pO2 ABG pO2 ABG HCO3 ABG Base Excess ABG Hemoglobin Oxyhemoglobin Sodium Potassium Chloride Carbon Dioxide BUN Creatinine Glucose POC Glucose 169 H 150 H Lactic Acid Calcium Phosphorus Magnesium Direct Bilirubin AST ALT Alkaline Phosphatase Lactate Dehydrogenase Troponin T C-Reactive Protein Total Protein Albumin Prealbumin Triglycerides Cholesterol LDL Cholesterol Direct HDL Cholesterol Urine pH Urine WBC (Auto) Urine Creatinine Urine Total Protein Fluid Total Protein Vancomycin Trough Rheumatoid Factor Complement C4 Miscellaneous Test Crossmatch 09/13/16 09/13/16 09/13/16 04:00 11:26 17:31 WBC RBC Hgb Hct MCV MCH MCHC RDW Plt Count Lymph % (Auto) [place] % (Auto) Lymph # [place] # Baso # Seg Neutrophils % Seg Neuts % (Manual) Lymphocytes % (Manual) Monocytes % (Manual) Eosinophils % (Manual) Basophils % (Manual) Nucleated RBC % Seg Neutrophils # Seg Neutrophils # Man Lymphocytes # (Manual) Monocytes # (Manual) Eosinophils # (Manual) Basophils # (Manual) PT INR Fibrinogen dRVVT Confirm Interp Factor V Activity POC ABG pH POC ABG pCO2 POC ABG pO2 ABG pO2 ABG HCO3 ABG Base Excess ABG Hemoglobin Oxyhemoglobin Sodium Potassium Chloride Carbon Dioxide 20 L BUN 116 H Creatinine 3.0 H Glucose 172 H POC Glucose 140 H 183 H Lactic Acid Calcium Phosphorus Magnesium Direct Bilirubin AST ALT Alkaline Phosphatase Lactate Dehydrogenase Troponin T C-Reactive Protein Total Protein 6.2 L Albumin 2.9 L Prealbumin Triglycerides Cholesterol LDL Cholesterol Direct HDL Cholesterol Urine pH Urine WBC (Auto) Urine Creatinine Urine Total Protein Fluid Total Protein Vancomycin Trough Rheumatoid Factor Complement C4 Miscellaneous Test Crossmatch 09/13/16 09/14/16 09/14/16 23:23 04:06 04:07 WBC 29.4 H RBC Hgb 8.9 L Hct 27.3 L MCV 75 L MCH 24 L MCHC RDW 19.1 H Plt Count Lymph % (Auto) [place] % (Auto) Lymph # [place] # Baso # Seg Neutrophils % Seg Neuts % (Manual) 84.0 H Lymphocytes % (Manual) 6.0 L Monocytes % (Manual) 9.0 H Eosinophils % (Manual) Basophils % (Manual) Nucleated RBC % Seg Neutrophils # Seg Neutrophils # Man 24.7 H Lymphocytes # (Manual) Monocytes # (Manual) 2.6 H Eosinophils # (Manual) Basophils # (Manual) PT INR Fibrinogen dRVVT Confirm Interp Factor V Activity POC ABG pH 7.342 L POC ABG pCO2 POC ABG pO2 116 H ABG pO2 ABG HCO3 ABG Base Excess ABG Hemoglobin Oxyhemoglobin Sodium Potassium Chloride Carbon Dioxide BUN Creatinine Glucose POC Glucose 154 H Lactic Acid Calcium Phosphorus Magnesium Direct Bilirubin AST ALT Alkaline Phosphatase Lactate Dehydrogenase Troponin T C-Reactive Protein Total Protein Albumin Prealbumin Triglycerides Cholesterol LDL Cholesterol Direct HDL Cholesterol Urine pH Urine WBC (Auto) Urine Creatinine Urine Total Protein Fluid Total Protein Vancomycin Trough Rheumatoid Factor Complement C4 Miscellaneous Test Crossmatch 09/14/16 09/14/16 09/14/16 04:07 05:29 12:19 WBC RBC Hgb Hct MCV MCH MCHC RDW Plt Count Lymph % (Auto) [place] % (Auto) Lymph # [place] # Baso # Seg Neutrophils % Seg Neuts % (Manual) Lymphocytes % (Manual) Monocytes % (Manual) Eosinophils % (Manual) Basophils % (Manual) Nucleated RBC % Seg Neutrophils # Seg Neutrophils # Man Lymphocytes # (Manual) Monocytes # (Manual) Eosinophils # (Manual) Basophils # (Manual) PT INR Fibrinogen dRVVT Confirm Interp Factor V Activity POC ABG pH POC ABG pCO2 POC ABG pO2 ABG pO2 ABG HCO3 ABG Base Excess ABG Hemoglobin Oxyhemoglobin Sodium 136 L Potassium Chloride Carbon Dioxide 18 L BUN 121 H Creatinine 2.8 H Glucose 214 H POC Glucose 239 H 181 H Lactic Acid Calcium Phosphorus Magnesium Direct Bilirubin AST ALT Alkaline Phosphatase Lactate Dehydrogenase Troponin T C-Reactive Protein Total Protein Albumin Prealbumin Triglycerides Cholesterol LDL Cholesterol Direct HDL Cholesterol Urine pH Urine WBC (Auto) Urine Creatinine Urine Total Protein Fluid Total Protein Vancomycin Trough Rheumatoid Factor Complement C4 Miscellaneous Test Crossmatch 09/14/16 09/14/16 09/15/16 18:12 23:37 05:00 WBC 26.1 H RBC 3.05 L Hgb 7.2 L Hct 22.9 L MCV 75 L MCH 24 L MCHC RDW 19.0 H Plt Count Lymph % (Auto) [place] % (Auto) Lymph # [place] # Baso # Seg Neutrophils % Seg Neuts % (Manual) Lymphocytes % (Manual) Monocytes % (Manual) Eosinophils % (Manual) Basophils % (Manual) Nucleated RBC % Seg Neutrophils # Seg Neutrophils # Man Lymphocytes # (Manual) Monocytes # (Manual) Eosinophils # (Manual) Basophils # (Manual) PT INR Fibrinogen dRVVT Confirm Interp Factor V Activity POC ABG pH POC ABG pCO2 POC ABG pO2 ABG pO2 ABG HCO3 ABG Base Excess ABG Hemoglobin Oxyhemoglobin Sodium Potassium Chloride Carbon Dioxide BUN Creatinine Glucose POC Glucose 266 H 154 H Lactic Acid Calcium Phosphorus Magnesium Direct Bilirubin AST ALT Alkaline Phosphatase Lactate Dehydrogenase Troponin T C-Reactive Protein Total Protein Albumin Prealbumin Triglycerides Cholesterol LDL Cholesterol Direct HDL Cholesterol Urine pH Urine WBC (Auto) Urine Creatinine Urine Total Protein Fluid Total Protein Vancomycin Trough Rheumatoid Factor Complement C4 Miscellaneous Test Crossmatch 09/15/16 09/15/16 09/15/16 05:00 05:17 12:45 WBC RBC Hgb Hct MCV MCH MCHC RDW Plt Count Lymph % (Auto) [place] % (Auto) Lymph # [place] # Baso # Seg Neutrophils % Seg Neuts % (Manual) Lymphocytes % (Manual) Monocytes % (Manual) Eosinophils % (Manual) Basophils % (Manual) Nucleated RBC % Seg Neutrophils # Seg Neutrophils # Man Lymphocytes # (Manual) Monocytes # (Manual) Eosinophils # (Manual) Basophils # (Manual) PT INR Fibrinogen dRVVT Confirm Interp Factor V Activity POC ABG pH POC ABG pCO2 POC ABG pO2 ABG pO2 ABG HCO3 ABG Base Excess ABG Hemoglobin Oxyhemoglobin Sodium Potassium 5.2 H Chloride Carbon Dioxide 18 L BUN 139 H Creatinine 3.7 H Glucose 227 H POC Glucose 226 H 244 H Lactic Acid Calcium 8.3 L Phosphorus Magnesium Direct Bilirubin AST ALT Alkaline Phosphatase Lactate Dehydrogenase Troponin T C-Reactive Protein Total Protein Albumin Prealbumin Triglycerides Cholesterol LDL Cholesterol Direct HDL Cholesterol Urine pH Urine WBC (Auto) Urine Creatinine Urine Total Protein Fluid Total Protein Vancomycin Trough Rheumatoid Factor Complement C4 Miscellaneous Test Crossmatch 09/15/16 09/15/16 09/15/16 14:32 17:33 23:35 WBC RBC Hgb Hct MCV MCH MCHC RDW Plt Count Lymph % (Auto) [place] % (Auto) Lymph # [place] # Baso # Seg Neutrophils % Seg Neuts % (Manual) Lymphocytes % (Manual) Monocytes % (Manual) Eosinophils % (Manual) Basophils % (Manual) Nucleated RBC % Seg Neutrophils # Seg Neutrophils # Man Lymphocytes # (Manual) Monocytes # (Manual) Eosinophils # (Manual) Basophils # (Manual) PT INR Fibrinogen dRVVT Confirm Interp Factor V Activity POC ABG pH POC ABG pCO2 27.7 L POC ABG pO2 120 H ABG pO2 ABG HCO3 ABG Base Excess ABG Hemoglobin Oxyhemoglobin Sodium Potassium Chloride Carbon Dioxide BUN Creatinine Glucose POC Glucose 232 H 167 H Lactic Acid Calcium Phosphorus Magnesium Direct Bilirubin AST ALT Alkaline Phosphatase Lactate Dehydrogenase Troponin T C-Reactive Protein Total Protein Albumin Prealbumin Triglycerides Cholesterol LDL Cholesterol Direct HDL Cholesterol Urine pH Urine WBC (Auto) Urine Creatinine Urine Total Protein Fluid Total Protein Vancomycin Trough Rheumatoid Factor Complement C4 Miscellaneous Test Crossmatch 09/16/16 09/16/16 09/16/16 03:58 10:27 10:27 WBC 19.0 H RBC 2.77 L Hgb 6.5 L Hct 20.9 L MCV 76 L MCH 23 L MCHC RDW 19.3 H Plt Count Lymph % (Auto) 11.0 L [place] % (Auto) Lymph # [place] # 1.1 H Baso # Seg Neutrophils % 82.5 H Seg Neuts % (Manual) Lymphocytes % (Manual) Monocytes % (Manual) Eosinophils % (Manual) Basophils % (Manual) Nucleated RBC % Seg Neutrophils # 15.7 H Seg Neutrophils # Man Lymphocytes # (Manual) Monocytes # (Manual) Eosinophils # (Manual) Basophils # (Manual) PT INR Fibrinogen dRVVT Confirm Interp Factor V Activity POC ABG pH POC ABG pCO2 POC ABG pO2 ABG pO2 ABG HCO3 ABG Base Excess ABG Hemoglobin Oxyhemoglobin Sodium Potassium Chloride 109.3 H Carbon Dioxide 18 L BUN 139 H Creatinine 4.1 H Glucose 144 H POC Glucose 146 H Lactic Acid Calcium 8.1 L Phosphorus Magnesium Direct Bilirubin AST ALT Alkaline Phosphatase Lactate Dehydrogenase Troponin T C-Reactive Protein Total Protein Albumin Prealbumin Triglycerides Cholesterol LDL Cholesterol Direct HDL Cholesterol Urine pH Urine WBC (Auto) Urine Creatinine Urine Total Protein Fluid Total Protein Vancomycin Trough Rheumatoid Factor Complement C4 Miscellaneous Test Crossmatch 09/16/16 09/16/16 09/16/16 12:04 12:10 13:55 WBC RBC Hgb Hct MCV MCH MCHC RDW Plt Count Lymph % (Auto) [place] % (Auto) Lymph # [place] # Baso # Seg Neutrophils % Seg Neuts % (Manual) Lymphocytes % (Manual) Monocytes % (Manual) Eosinophils % (Manual) Basophils % (Manual) Nucleated RBC % Seg Neutrophils # Seg Neutrophils # Man Lymphocytes # (Manual) Monocytes # (Manual) Eosinophils # (Manual) Basophils # (Manual) PT INR Fibrinogen dRVVT Confirm Interp Factor V Activity POC ABG pH POC ABG pCO2 32.9 L POC ABG pO2 ABG pO2 ABG HCO3 ABG Base Excess ABG Hemoglobin Oxyhemoglobin Sodium Potassium Chloride Carbon Dioxide BUN Creatinine Glucose POC Glucose 185 H Lactic Acid Calcium Phosphorus Magnesium Direct Bilirubin AST ALT Alkaline Phosphatase Lactate Dehydrogenase Troponin T C-Reactive Protein Total Protein Albumin Prealbumin Triglycerides Cholesterol LDL Cholesterol Direct HDL Cholesterol Urine pH Urine WBC (Auto) Urine Creatinine Urine Total Protein Fluid Total Protein Vancomycin Trough Rheumatoid Factor Complement C4 Miscellaneous Test Crossmatch See Detail 09/16/16 09/16/16 09/16/16 17:55 19:19 23:48 WBC RBC Hgb Hct MCV MCH MCHC RDW Plt Count Lymph % (Auto) [place] % (Auto) Lymph # [place] # Baso # Seg Neutrophils % Seg Neuts % (Manual) Lymphocytes % (Manual) Monocytes % (Manual) Eosinophils % (Manual) Basophils % (Manual) Nucleated RBC % Seg Neutrophils # Seg Neutrophils # Man Lymphocytes # (Manual) Monocytes # (Manual) Eosinophils # (Manual) Basophils # (Manual) PT INR Fibrinogen dRVVT Confirm Interp Factor V Activity POC ABG pH POC ABG pCO2 POC ABG pO2 ABG pO2 ABG HCO3 ABG Base Excess ABG Hemoglobin Oxyhemoglobin Sodium Potassium Chloride Carbon Dioxide BUN Creatinine Glucose POC Glucose 222 H 107 H Lactic Acid Calcium Phosphorus Magnesium Direct Bilirubin AST ALT Alkaline Phosphatase Lactate Dehydrogenase Troponin T C-Reactive Protein Total Protein Albumin Prealbumin Triglycerides Cholesterol LDL Cholesterol Direct HDL Cholesterol Urine pH Urine WBC (Auto) Urine Creatinine 47.4 H Urine Total Protein 16 H Fluid Total Protein Vancomycin Trough Rheumatoid Factor Complement C4 Miscellaneous Test Crossmatch 09/17/16 09/17/16 09/17/16 03:45 03:45 04:55 WBC 19.6 H RBC 3.41 L Hgb 8.5 L Hct 26.7 L MCV 78 L MCH 25 L MCHC RDW 19.9 H Plt Count Lymph % (Auto) 9.3 L [place] % (Auto) Lymph # [place] # 1.2 H Baso # Seg Neutrophils % 83.9 H Seg Neuts % (Manual) Lymphocytes % (Manual) Monocytes % (Manual) Eosinophils % (Manual) Basophils % (Manual) Nucleated RBC % Seg Neutrophils # 16.4 H Seg Neutrophils # Man Lymphocytes # (Manual) Monocytes # (Manual) Eosinophils # (Manual) Basophils # (Manual) PT INR Fibrinogen dRVVT Confirm Interp Factor V Activity POC ABG pH POC ABG pCO2 POC ABG pO2 ABG pO2 ABG HCO3 ABG Base Excess ABG Hemoglobin Oxyhemoglobin Sodium 146 H Potassium 5.1 H Chloride 110.9 H Carbon Dioxide 16 L BUN 146 H Creatinine 4.0 H Glucose 108 H POC Glucose 133 H Lactic Acid Calcium Phosphorus Magnesium 3.00 H Direct Bilirubin AST ALT Alkaline Phosphatase Lactate Dehydrogenase Troponin T C-Reactive Protein Total Protein Albumin Prealbumin Triglycerides Cholesterol LDL Cholesterol Direct HDL Cholesterol Urine pH Urine WBC (Auto) Urine Creatinine Urine Total Protein Fluid Total Protein Vancomycin Trough Rheumatoid Factor Complement C4 Miscellaneous Test Crossmatch 09/17/16 09/17/16 09/17/16 11:15 17:33 23:47 WBC RBC Hgb Hct MCV MCH MCHC RDW Plt Count Lymph % (Auto) [place] % (Auto) Lymph # [place] # Baso # Seg Neutrophils % Seg Neuts % (Manual) Lymphocytes % (Manual) Monocytes % (Manual) Eosinophils % (Manual) Basophils % (Manual) Nucleated RBC % Seg Neutrophils # Seg Neutrophils # Man Lymphocytes # (Manual) Monocytes # (Manual) Eosinophils # (Manual) Basophils # (Manual) PT INR Fibrinogen dRVVT Confirm Interp Factor V Activity POC ABG pH POC ABG pCO2 POC ABG pO2 ABG pO2 ABG HCO3 ABG Base Excess ABG Hemoglobin Oxyhemoglobin Sodium Potassium Chloride Carbon Dioxide BUN Creatinine Glucose POC Glucose 176 H 246 H 148 H Lactic Acid Calcium Phosphorus Magnesium Direct Bilirubin AST ALT Alkaline Phosphatase Lactate Dehydrogenase Troponin T C-Reactive Protein Total Protein Albumin Prealbumin Triglycerides Cholesterol LDL Cholesterol Direct HDL Cholesterol Urine pH Urine WBC (Auto) Urine Creatinine Urine Total Protein Fluid Total Protein Vancomycin Trough Rheumatoid Factor Complement C4 Miscellaneous Test Crossmatch 09/18/16 09/18/16 09/18/16 05:33 08:31 08:31 WBC 18.0 H RBC 3.17 L Hgb 9.0 L Hct 25.7 L MCV MCH MCHC 35 H RDW 20.4 H Plt Count Lymph % (Auto) [place] % (Auto) Lymph # [place] # Baso # Seg Neutrophils % Seg Neuts % (Manual) Lymphocytes % (Manual) Monocytes % (Manual) Eosinophils % (Manual) Basophils % (Manual) Nucleated RBC % Seg Neutrophils # Seg Neutrophils # Man Lymphocytes # (Manual) Monocytes # (Manual) Eosinophils # (Manual) Basophils # (Manual) PT INR Fibrinogen dRVVT Confirm Interp Factor V Activity POC ABG pH POC ABG pCO2 POC ABG pO2 ABG pO2 ABG HCO3 ABG Base Excess ABG Hemoglobin Oxyhemoglobin Sodium Potassium Chloride Carbon Dioxide 15 L BUN 124 H Creatinine 3.8 H Glucose POC Glucose 120 H Lactic Acid Calcium 8.1 L Phosphorus Magnesium Direct Bilirubin AST ALT Alkaline Phosphatase Lactate Dehydrogenase Troponin T C-Reactive Protein Total Protein Albumin Prealbumin Triglycerides Cholesterol LDL Cholesterol Direct HDL Cholesterol Urine pH Urine WBC (Auto) Urine Creatinine Urine Total Protein Fluid Total Protein Vancomycin Trough Rheumatoid Factor Complement C4 Miscellaneous Test Crossmatch 09/18/16 09/18/16 09/18/16 12:03 15:34 17:50 WBC RBC Hgb Hct MCV MCH MCHC RDW Plt Count Lymph % (Auto) [place] % (Auto) Lymph # [place] # Baso # Seg Neutrophils % Seg Neuts % (Manual) Lymphocytes % (Manual) Monocytes % (Manual) Eosinophils % (Manual) Basophils % (Manual) Nucleated RBC % Seg Neutrophils # Seg Neutrophils # Man Lymphocytes # (Manual) Monocytes # (Manual) Eosinophils # (Manual) Basophils # (Manual) PT INR Fibrinogen dRVVT Confirm Interp Factor V Activity POC ABG pH POC ABG pCO2 25.7 L POC ABG pO2 66 L ABG pO2 ABG HCO3 ABG Base Excess ABG Hemoglobin Oxyhemoglobin Sodium Potassium Chloride Carbon Dioxide BUN Creatinine Glucose POC Glucose 156 H 220 H Lactic Acid Calcium Phosphorus Magnesium Direct Bilirubin AST ALT Alkaline Phosphatase Lactate Dehydrogenase Troponin T C-Reactive Protein Total Protein Albumin Prealbumin Triglycerides Cholesterol LDL Cholesterol Direct HDL Cholesterol Urine pH Urine WBC (Auto) Urine Creatinine Urine Total Protein Fluid Total Protein Vancomycin Trough Rheumatoid Factor Complement C4 Miscellaneous Test Crossmatch 09/19/16 09/19/16 09/19/16 06:21 09:50 09:50 WBC 17.1 H RBC 3.49 L Hgb 9.0 L Hct 28.1 L MCV MCH 26 L MCHC RDW 20.8 H Plt Count Lymph % (Auto) 11.5 L [place] % (Auto) 7.5 H Lymph # [place] # 1.3 H Baso # Seg Neutrophils % 79.8 H Seg Neuts % (Manual) Lymphocytes % (Manual) Monocytes % (Manual) Eosinophils % (Manual) Basophils % (Manual) Nucleated RBC % Seg Neutrophils # 13.7 H Seg Neutrophils # Man Lymphocytes # (Manual) Monocytes # (Manual) Eosinophils # (Manual) Basophils # (Manual) PT INR Fibrinogen dRVVT Confirm Interp Factor V Activity POC ABG pH POC ABG pCO2 POC ABG pO2 ABG pO2 ABG HCO3 ABG Base Excess ABG Hemoglobin Oxyhemoglobin Sodium Potassium Chloride 108.6 H Carbon Dioxide 15 L BUN 125 H Creatinine 4.1 H Glucose 124 H POC Glucose 119 H Lactic Acid Calcium Phosphorus Magnesium Direct Bilirubin AST ALT Alkaline Phosphatase Lactate Dehydrogenase Troponin T C-Reactive Protein Total Protein Albumin Prealbumin Triglycerides Cholesterol LDL Cholesterol Direct HDL Cholesterol Urine pH Urine WBC (Auto) Urine Creatinine Urine Total Protein Fluid Total Protein Vancomycin Trough Rheumatoid Factor Complement C4 Miscellaneous Test Crossmatch 09/19/16 09/19/16 09/19/16 11:25 17:53 23:36 WBC RBC Hgb Hct MCV MCH MCHC RDW Plt Count Lymph % (Auto) [place] % (Auto) Lymph # [place] # Baso # Seg Neutrophils % Seg Neuts % (Manual) Lymphocytes % (Manual) Monocytes % (Manual) Eosinophils % (Manual) Basophils % (Manual) Nucleated RBC % Seg Neutrophils # Seg Neutrophils # Man Lymphocytes # (Manual) Monocytes # (Manual) Eosinophils # (Manual) Basophils # (Manual) PT INR Fibrinogen dRVVT Confirm Interp Factor V Activity POC ABG pH POC ABG pCO2 POC ABG pO2 ABG pO2 ABG HCO3 ABG Base Excess ABG Hemoglobin Oxyhemoglobin Sodium Potassium Chloride Carbon Dioxide BUN Creatinine Glucose POC Glucose 160 H 245 H 121 H Lactic Acid Calcium Phosphorus Magnesium Direct Bilirubin AST ALT Alkaline Phosphatase Lactate Dehydrogenase Troponin T C-Reactive Protein Total Protein Albumin Prealbumin Triglycerides Cholesterol LDL Cholesterol Direct HDL Cholesterol Urine pH Urine WBC (Auto) Urine Creatinine Urine Total Protein Fluid Total Protein Vancomycin Trough Rheumatoid Factor Complement C4 Miscellaneous Test Crossmatch 09/20/16 09/20/16 09/20/16 04:10 04:10 04:10 WBC 17.0 H RBC 3.21 L Hgb 8.2 L Hct 25.5 L MCV MCH 26 L MCHC RDW 20.9 H Plt Count Lymph % (Auto) [place] % (Auto) Lymph # [place] # Baso # Seg Neutrophils % Seg Neuts % (Manual) Lymphocytes % (Manual) Monocytes % (Manual) Eosinophils % (Manual) Basophils % (Manual) Nucleated RBC % Seg Neutrophils # Seg Neutrophils # Man Lymphocytes # (Manual) Monocytes # (Manual) Eosinophils # (Manual) Basophils # (Manual) PT INR Fibrinogen dRVVT Confirm Interp Factor V Activity POC ABG pH POC ABG pCO2 POC ABG pO2 ABG pO2 ABG HCO3 ABG Base Excess ABG Hemoglobin Oxyhemoglobin Sodium Potassium Chloride 111.0 H Carbon Dioxide 16 L BUN 129 H Creatinine 3.7 H Glucose 115 H POC Glucose Lactic Acid Calcium 8.2 L Phosphorus Magnesium Direct Bilirubin AST ALT Alkaline Phosphatase Lactate Dehydrogenase Troponin T C-Reactive Protein Total Protein Albumin Prealbumin Triglycerides 243 H Cholesterol LDL Cholesterol Direct HDL Cholesterol Urine pH Urine WBC (Auto) Urine Creatinine Urine Total Protein Fluid Total Protein Vancomycin Trough Rheumatoid Factor Complement C4 Miscellaneous Test Crossmatch 09/20/16 09/20/16 09/20/16 05:40 11:52 16:50 WBC RBC Hgb Hct MCV MCH MCHC RDW Plt Count Lymph % (Auto) [place] % (Auto) Lymph # [place] # Baso # Seg Neutrophils % Seg Neuts % (Manual) Lymphocytes % (Manual) Monocytes % (Manual) Eosinophils % (Manual) Basophils % (Manual) Nucleated RBC % Seg Neutrophils # Seg Neutrophils # Man Lymphocytes # (Manual) Monocytes # (Manual) Eosinophils # (Manual) Basophils # (Manual) PT INR Fibrinogen dRVVT Confirm Interp Factor V Activity POC ABG pH POC ABG pCO2 POC ABG pO2 ABG pO2 ABG HCO3 ABG Base Excess ABG Hemoglobin Oxyhemoglobin Sodium Potassium Chloride Carbon Dioxide BUN Creatinine Glucose POC Glucose 131 H 183 H 236 H Lactic Acid Calcium Phosphorus Magnesium Direct Bilirubin AST ALT Alkaline Phosphatase Lactate Dehydrogenase Troponin T C-Reactive Protein Total Protein Albumin Prealbumin Triglycerides Cholesterol LDL Cholesterol Direct HDL Cholesterol Urine pH Urine WBC (Auto) Urine Creatinine Urine Total Protein Fluid Total Protein Vancomycin Trough Rheumatoid Factor Complement C4 Miscellaneous Test Crossmatch 09/20/16 09/21/16 09/21/16 23:51 03:30 04:44 WBC RBC Hgb Hct MCV MCH MCHC RDW Plt Count Lymph % (Auto) [place] % (Auto) Lymph # [place] # Baso # Seg Neutrophils % Seg Neuts % (Manual) Lymphocytes % (Manual) Monocytes % (Manual) Eosinophils % (Manual) Basophils % (Manual) Nucleated RBC % Seg Neutrophils # Seg Neutrophils # Man Lymphocytes # (Manual) Monocytes # (Manual) Eosinophils # (Manual) Basophils # (Manual) PT INR Fibrinogen dRVVT Confirm Interp Factor V Activity POC ABG pH POC ABG pCO2 POC ABG pO2 ABG pO2 ABG HCO3 ABG Base Excess ABG Hemoglobin Oxyhemoglobin Sodium Potassium Chloride Carbon Dioxide BUN Creatinine Glucose POC Glucose 114 H 141 H Lactic Acid Calcium Phosphorus Magnesium 2.70 H Direct Bilirubin AST ALT Alkaline Phosphatase Lactate Dehydrogenase Troponin T C-Reactive Protein Total Protein Albumin Prealbumin Triglycerides Cholesterol LDL Cholesterol Direct HDL Cholesterol Urine pH Urine WBC (Auto) Urine Creatinine Urine Total Protein Fluid Total Protein Vancomycin Trough Rheumatoid Factor Complement C4 Miscellaneous Test Crossmatch 09/21/16 09/21/16 09/21/16 07:45 07:45 10:01 WBC 13.8 H RBC 2.94 L Hgb 7.5 L Hct 23.5 L MCV MCH 26 L MCHC RDW 21.2 H Plt Count Lymph % (Auto) 6.9 L [place] % (Auto) 9.4 H Lymph # 0.9 L [place] # 1.3 H Baso # Seg Neutrophils % 83.2 H Seg Neuts % (Manual) Lymphocytes % (Manual) Monocytes % (Manual) Eosinophils % (Manual) Basophils % (Manual) Nucleated RBC % Seg Neutrophils # 11.5 H Seg Neutrophils # Man Lymphocytes # (Manual) Monocytes # (Manual) Eosinophils # (Manual) Basophils # (Manual) PT INR Fibrinogen dRVVT Confirm Interp Factor V Activity POC ABG pH 7.308 L POC ABG pCO2 31.9 L POC ABG pO2 148 H ABG pO2 ABG HCO3 ABG Base Excess ABG Hemoglobin Oxyhemoglobin Sodium 147 H Potassium Chloride 114.2 H Carbon Dioxide 15 L BUN 120 H Creatinine 3.9 H Glucose 156 H POC Glucose Lactic Acid Calcium 8.2 L Phosphorus Magnesium Direct Bilirubin AST ALT Alkaline Phosphatase Lactate Dehydrogenase Troponin T C-Reactive Protein Total Protein Albumin Prealbumin Triglycerides Cholesterol LDL Cholesterol Direct HDL Cholesterol Urine pH Urine WBC (Auto) Urine Creatinine Urine Total Protein Fluid Total Protein Vancomycin Trough Rheumatoid Factor Complement C4 Miscellaneous Test Crossmatch 09/21/16 09/21/16 09/21/16 12:00 12:03 13:00 WBC RBC Hgb Hct MCV MCH MCHC RDW Plt Count Lymph % (Auto) [place] % (Auto) Lymph # [place] # Baso # Seg Neutrophils % Seg Neuts % (Manual) Lymphocytes % (Manual) Monocytes % (Manual) Eosinophils % (Manual) Basophils % (Manual) Nucleated RBC % Seg Neutrophils # Seg Neutrophils # Man Lymphocytes # (Manual) Monocytes # (Manual) Eosinophils # (Manual) Basophils # (Manual) PT INR Fibrinogen dRVVT Confirm Interp Factor V Activity POC ABG pH POC ABG pCO2 POC ABG pO2 ABG pO2 ABG HCO3 ABG Base Excess ABG Hemoglobin Oxyhemoglobin Sodium Potassium Chloride Carbon Dioxide BUN Creatinine Glucose POC Glucose 163 H Lactic Acid Calcium Phosphorus Magnesium Direct Bilirubin AST ALT Alkaline Phosphatase Lactate Dehydrogenase Troponin T C-Reactive Protein Total Protein Albumin Prealbumin Triglycerides Cholesterol LDL Cholesterol Direct HDL Cholesterol Urine pH Urine WBC (Auto) Urine Creatinine 54.8 H Urine Total Protein Fluid Total Protein Vancomycin Trough 2.3 L Rheumatoid Factor Complement C4 Miscellaneous Test Crossmatch 09/21/16 09/21/16 09/22/16 16:51 23:17 06:27 WBC RBC Hgb Hct MCV MCH MCHC RDW Plt Count Lymph % (Auto) [place] % (Auto) Lymph # [place] # Baso # Seg Neutrophils % Seg Neuts % (Manual) Lymphocytes % (Manual) Monocytes % (Manual) Eosinophils % (Manual) Basophils % (Manual) Nucleated RBC % Seg Neutrophils # Seg Neutrophils # Man Lymphocytes # (Manual) Monocytes # (Manual) Eosinophils # (Manual) Basophils # (Manual) PT INR Fibrinogen dRVVT Confirm Interp Factor V Activity POC ABG pH POC ABG pCO2 POC ABG pO2 ABG pO2 ABG HCO3 ABG Base Excess ABG Hemoglobin Oxyhemoglobin Sodium Potassium Chloride Carbon Dioxide BUN Creatinine Glucose POC Glucose 206 H 114 H 115 H Lactic Acid Calcium Phosphorus Magnesium Direct Bilirubin AST ALT Alkaline Phosphatase Lactate Dehydrogenase Troponin T C-Reactive Protein Total Protein Albumin Prealbumin Triglycerides Cholesterol LDL Cholesterol Direct HDL Cholesterol Urine pH Urine WBC (Auto) Urine Creatinine Urine Total Protein Fluid Total Protein Vancomycin Trough Rheumatoid Factor Complement C4 Miscellaneous Test Crossmatch 09/22/16 09/22/16 09/22/16 07:50 07:50 12:00 WBC 17.8 H RBC 3.04 L Hgb 8.0 L Hct 24.7 L MCV MCH 26 L MCHC RDW 21.6 H Plt Count Lymph % (Auto) [place] % (Auto) Lymph # [place] # Baso # Seg Neutrophils % Seg Neuts % (Manual) Lymphocytes % (Manual) Monocytes % (Manual) Eosinophils % (Manual) Basophils % (Manual) Nucleated RBC % Seg Neutrophils # Seg Neutrophils # Man Lymphocytes # (Manual) Monocytes # (Manual) Eosinophils # (Manual) Basophils # (Manual) PT INR Fibrinogen dRVVT Confirm Interp Factor V Activity POC ABG pH POC ABG pCO2 POC ABG pO2 ABG pO2 ABG HCO3 ABG Base Excess ABG Hemoglobin Oxyhemoglobin Sodium 150 H Potassium Chloride 118.2 H Carbon Dioxide 14 L BUN 111 H Creatinine 3.7 H Glucose 157 H POC Glucose 183 H Lactic Acid Calcium Phosphorus Magnesium Direct Bilirubin AST ALT Alkaline Phosphatase Lactate Dehydrogenase Troponin T C-Reactive Protein Total Protein Albumin Prealbumin Triglycerides Cholesterol LDL Cholesterol Direct HDL Cholesterol Urine pH Urine WBC (Auto) Urine Creatinine Urine Total Protein Fluid Total Protein Vancomycin Trough Rheumatoid Factor Complement C4 Miscellaneous Test Crossmatch 09/22/16 09/22/16 09/23/16 17:29 23:10 05:00 WBC 19.2 H RBC 3.13 L Hgb 8.0 L Hct 25.2 L MCV MCH 26 L MCHC RDW 22.1 H Plt Count Lymph % (Auto) [place] % (Auto) Lymph # [place] # Baso # Seg Neutrophils % Seg Neuts % (Manual) 92.0 H Lymphocytes % (Manual) 3.0 L Monocytes % (Manual) Eosinophils % (Manual) Basophils % (Manual) Nucleated RBC % Seg Neutrophils # Seg Neutrophils # Man 17.7 H Lymphocytes # (Manual) 0.6 L Monocytes # (Manual) Eosinophils # (Manual) Basophils # (Manual) PT INR Fibrinogen dRVVT Confirm Interp Factor V Activity POC ABG pH POC ABG pCO2 POC ABG pO2 ABG pO2 ABG HCO3 ABG Base Excess ABG Hemoglobin Oxyhemoglobin Sodium Potassium Chloride Carbon Dioxide BUN Creatinine Glucose POC Glucose 197 H 169 H Lactic Acid Calcium Phosphorus Magnesium Direct Bilirubin AST ALT Alkaline Phosphatase Lactate Dehydrogenase Troponin T C-Reactive Protein Total Protein Albumin Prealbumin Triglycerides Cholesterol LDL Cholesterol Direct HDL Cholesterol Urine pH Urine WBC (Auto) Urine Creatinine Urine Total Protein Fluid Total Protein Vancomycin Trough Rheumatoid Factor Complement C4 Miscellaneous Test Crossmatch 09/23/16 09/23/16 09/23/16 05:00 05:00 05:10 WBC RBC Hgb Hct MCV MCH MCHC RDW Plt Count Lymph % (Auto) [place] % (Auto) Lymph # [place] # Baso # Seg Neutrophils % Seg Neuts % (Manual) Lymphocytes % (Manual) Monocytes % (Manual) Eosinophils % (Manual) Basophils % (Manual) Nucleated RBC % Seg Neutrophils # Seg Neutrophils # Man Lymphocytes # (Manual) Monocytes # (Manual) Eosinophils # (Manual) Basophils # (Manual) PT INR Fibrinogen dRVVT Confirm Interp Factor V Activity POC ABG pH POC ABG pCO2 POC ABG pO2 ABG pO2 ABG HCO3 ABG Base Excess ABG Hemoglobin Oxyhemoglobin Sodium 147 H Potassium 3.2 L Chloride 115.7 H Carbon Dioxide 13 L BUN 111 H Creatinine 3.8 H Glucose 194 H POC Glucose 188 H Lactic Acid Calcium 7.3 L D Phosphorus Magnesium Direct Bilirubin AST ALT Alkaline Phosphatase Lactate Dehydrogenase Troponin T C-Reactive Protein 3.20 H Total Protein Albumin Prealbumin Triglycerides Cholesterol LDL Cholesterol Direct HDL Cholesterol Urine pH Urine WBC (Auto) Urine Creatinine Urine Total Protein Fluid Total Protein Vancomycin Trough Rheumatoid Factor Complement C4 Miscellaneous Test Crossmatch 09/23/16 09/23/16 09/23/16 11:37 12:29 18:01 WBC RBC Hgb Hct MCV MCH MCHC RDW Plt Count Lymph % (Auto) [place] % (Auto) Lymph # [place] # Baso # Seg Neutrophils % Seg Neuts % (Manual) Lymphocytes % (Manual) Monocytes % (Manual) Eosinophils % (Manual) Basophils % (Manual) Nucleated RBC % Seg Neutrophils # Seg Neutrophils # Man Lymphocytes # (Manual) Monocytes # (Manual) Eosinophils # (Manual) Basophils # (Manual) PT INR Fibrinogen dRVVT Confirm Interp Factor V Activity POC ABG pH POC ABG pCO2 18.9 L POC ABG pO2 143 H ABG pO2 ABG HCO3 ABG Base Excess ABG Hemoglobin Oxyhemoglobin Sodium Potassium Chloride Carbon Dioxide BUN Creatinine Glucose POC Glucose 153 H 108 H Lactic Acid Calcium Phosphorus Magnesium Direct Bilirubin AST ALT Alkaline Phosphatase Lactate Dehydrogenase Troponin T C-Reactive Protein Total Protein Albumin Prealbumin Triglycerides Cholesterol LDL Cholesterol Direct HDL Cholesterol Urine pH Urine WBC (Auto) Urine Creatinine Urine Total Protein Fluid Total Protein Vancomycin Trough Rheumatoid Factor Complement C4 Miscellaneous Test Crossmatch 09/23/16 09/23/16 09/24/16 21:19 23:43 05:16 WBC RBC Hgb Hct MCV MCH MCHC RDW Plt Count Lymph % (Auto) [place] % (Auto) Lymph # [place] # Baso # Seg Neutrophils % Seg Neuts % (Manual) Lymphocytes % (Manual) Monocytes % (Manual) Eosinophils % (Manual) Basophils % (Manual) Nucleated RBC % Seg Neutrophils # Seg Neutrophils # Man Lymphocytes # (Manual) Monocytes # (Manual) Eosinophils # (Manual) Basophils # (Manual) PT INR Fibrinogen dRVVT Confirm Interp Factor V Activity POC ABG pH POC ABG pCO2 17.3 L POC ABG pO2 112 H ABG pO2 ABG HCO3 ABG Base Excess ABG Hemoglobin Oxyhemoglobin Sodium Potassium Chloride Carbon Dioxide BUN Creatinine Glucose POC Glucose 143 H 164 H Lactic Acid Calcium Phosphorus Magnesium Direct Bilirubin AST ALT Alkaline Phosphatase Lactate Dehydrogenase Troponin T C-Reactive Protein Total Protein Albumin Prealbumin Triglycerides Cholesterol LDL Cholesterol Direct HDL Cholesterol Urine pH Urine WBC (Auto) Urine Creatinine Urine Total Protein Fluid Total Protein Vancomycin Trough Rheumatoid Factor Complement C4 Miscellaneous Test Crossmatch 09/24/16 09/24/16 09/24/16 05:21 11:58 17:06 WBC RBC Hgb Hct MCV MCH MCHC RDW Plt Count Lymph % (Auto) [place] % (Auto) Lymph # [place] # Baso # Seg Neutrophils % Seg Neuts % (Manual) Lymphocytes % (Manual) Monocytes % (Manual) Eosinophils % (Manual) Basophils % (Manual) Nucleated RBC % Seg Neutrophils # Seg Neutrophils # Man Lymphocytes # (Manual) Monocytes # (Manual) Eosinophils # (Manual) Basophils # (Manual) PT INR Fibrinogen dRVVT Confirm Interp Factor V Activity POC ABG pH POC ABG pCO2 POC ABG pO2 ABG pO2 ABG HCO3 ABG Base Excess ABG Hemoglobin Oxyhemoglobin Sodium Potassium Chloride Carbon Dioxide 10 L BUN 103 H Creatinine 4.3 H Glucose 163 H POC Glucose 173 H 167 H Lactic Acid Calcium 6.5 L Phosphorus Magnesium Direct Bilirubin AST ALT Alkaline Phosphatase Lactate Dehydrogenase Troponin T C-Reactive Protein Total Protein Albumin Prealbumin Triglycerides Cholesterol LDL Cholesterol Direct HDL Cholesterol Urine pH Urine WBC (Auto) Urine Creatinine Urine Total Protein Fluid Total Protein Vancomycin Trough Rheumatoid Factor Complement C4 Miscellaneous Test Crossmatch 09/24/16 09/24/16 09/24/16 20:15 21:02 23:48 WBC RBC Hgb Hct MCV MCH MCHC RDW Plt Count Lymph % (Auto) [place] % (Auto) Lymph # [place] # Baso # Seg Neutrophils % Seg Neuts % (Manual) Lymphocytes % (Manual) Monocytes % (Manual) Eosinophils % (Manual) Basophils % (Manual) Nucleated RBC % Seg Neutrophils # Seg Neutrophils # Man Lymphocytes # (Manual) Monocytes # (Manual) Eosinophils # (Manual) Basophils # (Manual) PT INR Fibrinogen dRVVT Confirm Interp Factor V Activity POC ABG pH 7.288 L POC ABG pCO2 30.2 L 21.5 L POC ABG pO2 32 L 39 L ABG pO2 ABG HCO3 ABG Base Excess ABG Hemoglobin Oxyhemoglobin Sodium Potassium Chloride Carbon Dioxide BUN Creatinine Glucose POC Glucose 109 H Lactic Acid Calcium Phosphorus Magnesium Direct Bilirubin AST ALT Alkaline Phosphatase Lactate Dehydrogenase Troponin T C-Reactive Protein Total Protein Albumin Prealbumin Triglycerides Cholesterol LDL Cholesterol Direct HDL Cholesterol Urine pH Urine WBC (Auto) Urine Creatinine Urine Total Protein Fluid Total Protein Vancomycin Trough Rheumatoid Factor Complement C4 Miscellaneous Test Crossmatch 09/25/16 09/25/16 09/25/16 04:20 04:20 04:20 WBC RBC 2.58 L Hgb 7.0 L Hct 21.0 L MCV MCH 27 L MCHC RDW 23.8 H Plt Count Lymph % (Auto) [place] % (Auto) Lymph # [place] # Baso # Seg Neutrophils % Seg Neuts % (Manual) Lymphocytes % (Manual) 12.0 L Monocytes % (Manual) Eosinophils % (Manual) 7.0 H Basophils % (Manual) 2.0 H Nucleated RBC % Seg Neutrophils # Seg Neutrophils # Man Lymphocytes # (Manual) 0.9 L Monocytes # (Manual) Eosinophils # (Manual) 0.5 H Basophils # (Manual) PT INR Fibrinogen dRVVT Confirm Interp Factor V Activity POC ABG pH POC ABG pCO2 POC ABG pO2 ABG pO2 ABG HCO3 ABG Base Excess ABG Hemoglobin Oxyhemoglobin Sodium Potassium Chloride Carbon Dioxide 15 L BUN 72 H Creatinine 3.8 H Glucose POC Glucose Lactic Acid Calcium 6.0 L Phosphorus 4.60 H Magnesium 1.60 L Direct Bilirubin AST ALT Alkaline Phosphatase Lactate Dehydrogenase Troponin T C-Reactive Protein Total Protein Albumin Prealbumin Triglycerides Cholesterol LDL Cholesterol Direct HDL Cholesterol Urine pH Urine WBC (Auto) Urine Creatinine Urine Total Protein Fluid Total Protein Vancomycin Trough Rheumatoid Factor Complement C4 Miscellaneous Test Crossmatch 09/25/16 09/25/16 09/25/16 04:57 08:02 10:30 WBC RBC Hgb Hct MCV MCH MCHC RDW Plt Count Lymph % (Auto) [place] % (Auto) Lymph # [place] # Baso # Seg Neutrophils % Seg Neuts % (Manual) Lymphocytes % (Manual) Monocytes % (Manual) Eosinophils % (Manual) Basophils % (Manual) Nucleated RBC % Seg Neutrophils # Seg Neutrophils # Man Lymphocytes # (Manual) Monocytes # (Manual) Eosinophils # (Manual) Basophils # (Manual) PT INR Fibrinogen dRVVT Confirm Interp Factor V Activity POC ABG pH POC ABG pCO2 24.7 L POC ABG pO2 152 H ABG pO2 ABG HCO3 ABG Base Excess ABG Hemoglobin Oxyhemoglobin Sodium Potassium Chloride Carbon Dioxide BUN Creatinine Glucose POC Glucose 113 H Lactic Acid Calcium Phosphorus Magnesium Direct Bilirubin AST ALT Alkaline Phosphatase Lactate Dehydrogenase Troponin T C-Reactive Protein Total Protein Albumin Prealbumin Triglycerides Cholesterol LDL Cholesterol Direct HDL Cholesterol Urine pH Urine WBC (Auto) Urine Creatinine Urine Total Protein Fluid Total Protein Vancomycin Trough Rheumatoid Factor Complement C4 Miscellaneous Test Crossmatch See Detail 09/25/16 09/25/16 09/25/16 12:05 17:44 23:47 WBC RBC Hgb Hct MCV MCH MCHC RDW Plt Count Lymph % (Auto) [place] % (Auto) Lymph # [place] # Baso # Seg Neutrophils % Seg Neuts % (Manual) Lymphocytes % (Manual) Monocytes % (Manual) Eosinophils % (Manual) Basophils % (Manual) Nucleated RBC % Seg Neutrophils # Seg Neutrophils # Man Lymphocytes # (Manual) Monocytes # (Manual) Eosinophils # (Manual) Basophils # (Manual) PT INR Fibrinogen dRVVT Confirm Interp Factor V Activity POC ABG pH POC ABG pCO2 POC ABG pO2 ABG pO2 ABG HCO3 ABG Base Excess ABG Hemoglobin Oxyhemoglobin Sodium Potassium Chloride Carbon Dioxide BUN Creatinine Glucose POC Glucose 117 H 119 H 150 H Lactic Acid Calcium Phosphorus Magnesium Direct Bilirubin AST ALT Alkaline Phosphatase Lactate Dehydrogenase Troponin T C-Reactive Protein Total Protein Albumin Prealbumin Triglycerides Cholesterol LDL Cholesterol Direct HDL Cholesterol Urine pH Urine WBC (Auto) Urine Creatinine Urine Total Protein Fluid Total Protein Vancomycin Trough Rheumatoid Factor Complement C4 Miscellaneous Test Crossmatch 09/26/16 09/26/16 09/26/16 04:25 04:25 04:25 WBC RBC 2.65 L Hgb 7.4 L Hct 21.6 L MCV MCH MCHC RDW 22.5 H Plt Count Lymph % (Auto) [place] % (Auto) Lymph # [place] # Baso # Seg Neutrophils % Seg Neuts % (Manual) Lymphocytes % (Manual) 6.0 L Monocytes % (Manual) Eosinophils % (Manual) 11.0 H Basophils % (Manual) Nucleated RBC % Seg Neutrophils # Seg Neutrophils # Man Lymphocytes # (Manual) 0.4 L Monocytes # (Manual) Eosinophils # (Manual) 0.6 H Basophils # (Manual) PT INR Fibrinogen dRVVT Confirm Interp Factor V Activity POC ABG pH POC ABG pCO2 POC ABG pO2 ABG pO2 ABG HCO3 ABG Base Excess ABG Hemoglobin Oxyhemoglobin Sodium Potassium Chloride 97.0 L Carbon Dioxide 19 L BUN 43 H Creatinine 2.6 H Glucose 130 H POC Glucose Lactic Acid 4.40 H* Calcium 6.7 L Phosphorus Magnesium Direct Bilirubin AST ALT Alkaline Phosphatase Lactate Dehydrogenase Troponin T C-Reactive Protein Total Protein Albumin Prealbumin Triglycerides Cholesterol LDL Cholesterol Direct HDL Cholesterol Urine pH Urine WBC (Auto) Urine Creatinine Urine Total Protein Fluid Total Protein Vancomycin Trough Rheumatoid Factor Complement C4 Miscellaneous Test Crossmatch 09/26/16 09/26/16 09/26/16 05:20 11:44 12:12 WBC RBC Hgb Hct MCV MCH MCHC RDW Plt Count Lymph % (Auto) [place] % (Auto) Lymph # [place] # Baso # Seg Neutrophils % Seg Neuts % (Manual) Lymphocytes % (Manual) Monocytes % (Manual) Eosinophils % (Manual) Basophils % (Manual) Nucleated RBC % Seg Neutrophils # Seg Neutrophils # Man Lymphocytes # (Manual) Monocytes # (Manual) Eosinophils # (Manual) Basophils # (Manual) PT INR Fibrinogen dRVVT Confirm Interp Factor V Activity POC ABG pH POC ABG pCO2 27.0 L POC ABG pO2 69 L ABG pO2 ABG HCO3 ABG Base Excess ABG Hemoglobin Oxyhemoglobin Sodium Potassium Chloride Carbon Dioxide BUN Creatinine Glucose POC Glucose 121 H 128 H Lactic Acid Calcium Phosphorus Magnesium Direct Bilirubin AST ALT Alkaline Phosphatase Lactate Dehydrogenase Troponin T C-Reactive Protein Total Protein Albumin Prealbumin Triglycerides Cholesterol LDL Cholesterol Direct HDL Cholesterol Urine pH Urine WBC (Auto) Urine Creatinine Urine Total Protein Fluid Total Protein Vancomycin Trough Rheumatoid Factor Complement C4 Miscellaneous Test Crossmatch 09/26/16 09/26/16 09/27/16 18:31 23:40 08:20 WBC RBC Hgb Hct MCV MCH MCHC RDW Plt Count Lymph % (Auto) [place] % (Auto) Lymph # [place] # Baso # Seg Neutrophils % Seg Neuts % (Manual) Lymphocytes % (Manual) Monocytes % (Manual) Eosinophils % (Manual) Basophils % (Manual) Nucleated RBC % Seg Neutrophils # Seg Neutrophils # Man Lymphocytes # (Manual) Monocytes # (Manual) Eosinophils # (Manual) Basophils # (Manual) PT INR Fibrinogen dRVVT Confirm Interp Factor V Activity POC ABG pH POC ABG pCO2 POC ABG pO2 ABG pO2 ABG HCO3 ABG Base Excess ABG Hemoglobin Oxyhemoglobin Sodium Potassium Chloride Carbon Dioxide BUN Creatinine Glucose POC Glucose 120 H 133 H Lactic Acid 4.10 H* Calcium Phosphorus Magnesium Direct Bilirubin AST ALT Alkaline Phosphatase Lactate Dehydrogenase Troponin T C-Reactive Protein Total Protein Albumin Prealbumin Triglycerides Cholesterol LDL Cholesterol Direct HDL Cholesterol Urine pH Urine WBC (Auto) Urine Creatinine Urine Total Protein Fluid Total Protein Vancomycin Trough Rheumatoid Factor Complement C4 Miscellaneous Test Crossmatch 09/27/16 09/27/16 09/27/16 11:23 15:00 18:15 WBC RBC Hgb Hct MCV MCH MCHC RDW Plt Count Lymph % (Auto) [place] % (Auto) Lymph # [place] # Baso # Seg Neutrophils % Seg Neuts % (Manual) Lymphocytes % (Manual) Monocytes % (Manual) Eosinophils % (Manual) Basophils % (Manual) Nucleated RBC % Seg Neutrophils # Seg Neutrophils # Man Lymphocytes # (Manual) Monocytes # (Manual) Eosinophils # (Manual) Basophils # (Manual) PT INR Fibrinogen dRVVT Confirm Interp Factor V Activity POC ABG pH 7.459 H POC ABG pCO2 27.1 L POC ABG pO2 140 H ABG pO2 ABG HCO3 ABG Base Excess ABG Hemoglobin Oxyhemoglobin Sodium Potassium Chloride Carbon Dioxide BUN Creatinine Glucose POC Glucose 114 H 127 H Lactic Acid Calcium Phosphorus Magnesium Direct Bilirubin AST ALT Alkaline Phosphatase Lactate Dehydrogenase Troponin T C-Reactive Protein Total Protein Albumin Prealbumin Triglycerides Cholesterol LDL Cholesterol Direct HDL Cholesterol Urine pH Urine WBC (Auto) Urine Creatinine Urine Total Protein Fluid Total Protein Vancomycin Trough Rheumatoid Factor Complement C4 Miscellaneous Test Crossmatch 09/27/16 09/27/16 09/28/16 Unknown Unknown 03:45 WBC RBC 2.49 L Hgb 6.8 L Hct 20.7 L MCV MCH 27 L MCHC RDW 22.1 H Plt Count Lymph % (Auto) [place] % (Auto) Lymph # [place] # Baso # Seg Neutrophils % Seg Neuts % (Manual) 32.0 L Lymphocytes % (Manual) 12.0 L Monocytes % (Manual) 11.0 H Eosinophils % (Manual) 10.0 H Basophils % (Manual) Nucleated RBC % Seg Neutrophils # Seg Neutrophils # Man Lymphocytes # (Manual) 1.0 L Monocytes # (Manual) 0.9 H Eosinophils # (Manual) 0.8 H Basophils # (Manual) PT INR Fibrinogen dRVVT Confirm Interp Factor V Activity POC ABG pH POC ABG pCO2 POC ABG pO2 ABG pO2 ABG HCO3 ABG Base Excess ABG Hemoglobin Oxyhemoglobin Sodium 135 L 135 L Potassium 3.5 L Chloride 93.6 L 94.4 L Carbon Dioxide 17 L 21 L BUN 45 H 28 H Creatinine 3.3 H 2.5 H Glucose 106 H POC Glucose Lactic Acid Calcium 7.3 L 7.1 L Phosphorus Magnesium Direct Bilirubin AST ALT Alkaline Phosphatase Lactate Dehydrogenase Troponin T C-Reactive Protein Total Protein Albumin Prealbumin Triglycerides Cholesterol LDL Cholesterol Direct HDL Cholesterol Urine pH Urine WBC (Auto) Urine Creatinine Urine Total Protein Fluid Total Protein Vancomycin Trough Rheumatoid Factor Complement C4 Miscellaneous Test Crossmatch 09/28/16 09/28/16 09/28/16 03:45 07:25 11:58 WBC 13.3 H RBC 3.01 L Hgb 8.4 L Hct 25.0 L MCV MCH MCHC RDW 20.5 H Plt Count 128 L Lymph % (Auto) [place] % (Auto) Lymph # [place] # Baso # Seg Neutrophils % Seg Neuts % (Manual) Lymphocytes % (Manual) 7.0 L Monocytes % (Manual) Eosinophils % (Manual) 6.0 H Basophils % (Manual) Nucleated RBC % Seg Neutrophils # Seg Neutrophils # Man Lymphocytes # (Manual) 0.9 L Monocytes # (Manual) Eosinophils # (Manual) 0.8 H Basophils # (Manual) PT INR Fibrinogen dRVVT Confirm Interp Factor V Activity POC ABG pH POC ABG pCO2 POC ABG pO2 ABG pO2 ABG HCO3 ABG Base Excess ABG Hemoglobin Oxyhemoglobin Sodium Potassium Chloride Carbon Dioxide BUN Creatinine Glucose POC Glucose 121 H Lactic Acid 4.50 H* Calcium Phosphorus Magnesium Direct Bilirubin AST ALT Alkaline Phosphatase Lactate Dehydrogenase Troponin T C-Reactive Protein Total Protein Albumin Prealbumin Triglycerides Cholesterol LDL Cholesterol Direct HDL Cholesterol Urine pH Urine WBC (Auto) Urine Creatinine Urine Total Protein Fluid Total Protein Vancomycin Trough Rheumatoid Factor Complement C4 Miscellaneous Test Crossmatch 09/29/16 09/29/16 09/29/16 06:45 06:45 06:45 WBC 14.9 H RBC 2.74 L Hgb 7.6 L Hct 23.2 L MCV MCH MCHC RDW 20.5 H Plt Count 81 L Lymph % (Auto) [place] % (Auto) Lymph # [place] # Baso # Seg Neutrophils % Seg Neuts % (Manual) 81.0 H Lymphocytes % (Manual) 4.0 L Monocytes % (Manual) Eosinophils % (Manual) Basophils % (Manual) Nucleated RBC % Seg Neutrophils # Seg Neutrophils # Man 12.1 H Lymphocytes # (Manual) 0.6 L Monocytes # (Manual) Eosinophils # (Manual) Basophils # (Manual) PT INR Fibrinogen dRVVT Confirm Interp Factor V Activity POC ABG pH POC ABG pCO2 POC ABG pO2 ABG pO2 ABG HCO3 ABG Base Excess ABG Hemoglobin Oxyhemoglobin Sodium 133 L Potassium 3.4 L Chloride 92.5 L Carbon Dioxide 21 L BUN 33 H Creatinine 3.0 H Glucose POC Glucose Lactic Acid Calcium 6.6 L Phosphorus Magnesium 1.40 L Direct Bilirubin 0.9 H AST ALT Alkaline Phosphatase Lactate Dehydrogenase Troponin T C-Reactive Protein Total Protein 4.3 L Albumin 1.3 L Prealbumin Triglycerides Cholesterol LDL Cholesterol Direct HDL Cholesterol Urine pH Urine WBC (Auto) Urine Creatinine Urine Total Protein Fluid Total Protein Vancomycin Trough Rheumatoid Factor Complement C4 Miscellaneous Test Crossmatch 09/29/16 09/29/16 09/30/16 17:52 20:12 00:07 WBC RBC Hgb Hct MCV MCH MCHC RDW Plt Count Lymph % (Auto) [place] % (Auto) Lymph # [place] # Baso # Seg Neutrophils % Seg Neuts % (Manual) Lymphocytes % (Manual) Monocytes % (Manual) Eosinophils % (Manual) Basophils % (Manual) Nucleated RBC % Seg Neutrophils # Seg Neutrophils # Man Lymphocytes # (Manual) Monocytes # (Manual) Eosinophils # (Manual) Basophils # (Manual) PT INR Fibrinogen dRVVT Confirm Interp Factor V Activity POC ABG pH POC ABG pCO2 POC ABG pO2 ABG pO2 ABG HCO3 ABG Base Excess ABG Hemoglobin Oxyhemoglobin Sodium Potassium Chloride Carbon Dioxide BUN Creatinine Glucose POC Glucose 50 L 51 L Lactic Acid Calcium Phosphorus Magnesium Direct Bilirubin AST ALT Alkaline Phosphatase Lactate Dehydrogenase Troponin T 0.204 H* C-Reactive Protein Total Protein Albumin Prealbumin Triglycerides Cholesterol 31 L LDL Cholesterol Direct 4 L HDL Cholesterol 3 L Urine pH Urine WBC (Auto) Urine Creatinine Urine Total Protein Fluid Total Protein Vancomycin Trough Rheumatoid Factor Complement C4 Miscellaneous Test Crossmatch 09/30/16 09/30/16 09/30/16 01:30 05:15 06:10 WBC RBC Hgb Hct MCV MCH MCHC RDW Plt Count Lymph % (Auto) [place] % (Auto) Lymph # [place] # Baso # Seg Neutrophils % Seg Neuts % (Manual) Lymphocytes % (Manual) Monocytes % (Manual) Eosinophils % (Manual) Basophils % (Manual) Nucleated RBC % Seg Neutrophils # Seg Neutrophils # Man Lymphocytes # (Manual) Monocytes # (Manual) Eosinophils # (Manual) Basophils # (Manual) PT INR Fibrinogen dRVVT Confirm Interp Factor V Activity POC ABG pH POC ABG pCO2 POC ABG pO2 ABG pO2 ABG HCO3 ABG Base Excess ABG Hemoglobin Oxyhemoglobin Sodium 133 L Potassium 3.2 L Chloride 93.2 L Carbon Dioxide 19 L BUN 36 H Creatinine 3.2 H Glucose 104 H POC Glucose 167 H 146 H Lactic Acid Calcium 6.4 L Phosphorus Magnesium 1.60 L Direct Bilirubin AST ALT Alkaline Phosphatase Lactate Dehydrogenase Troponin T C-Reactive Protein Total Protein Albumin Prealbumin Triglycerides Cholesterol LDL Cholesterol Direct HDL Cholesterol Urine pH Urine WBC (Auto) Urine Creatinine Urine Total Protein Fluid Total Protein Vancomycin Trough Rheumatoid Factor Complement C4 Miscellaneous Test Crossmatch 09/30/16 09/30/16 09/30/16 11:26 13:39 18:38 WBC RBC Hgb Hct MCV MCH MCHC RDW Plt Count Lymph % (Auto) [place] % (Auto) Lymph # [place] # Baso # Seg Neutrophils % Seg Neuts % (Manual) Lymphocytes % (Manual) Monocytes % (Manual) Eosinophils % (Manual) Basophils % (Manual) Nucleated RBC % Seg Neutrophils # Seg Neutrophils # Man Lymphocytes # (Manual) Monocytes # (Manual) Eosinophils # (Manual) Basophils # (Manual) PT INR Fibrinogen dRVVT Confirm Interp Factor V Activity POC ABG pH 7.479 H POC ABG pCO2 29.8 L POC ABG pO2 117 H ABG pO2 ABG HCO3 ABG Base Excess ABG Hemoglobin Oxyhemoglobin Sodium Potassium Chloride Carbon Dioxide BUN Creatinine Glucose POC Glucose 140 H 122 H Lactic Acid Calcium Phosphorus Magnesium Direct Bilirubin AST ALT Alkaline Phosphatase Lactate Dehydrogenase Troponin T C-Reactive Protein Total Protein Albumin Prealbumin Triglycerides Cholesterol LDL Cholesterol Direct HDL Cholesterol Urine pH Urine WBC (Auto) Urine Creatinine Urine Total Protein Fluid Total Protein Vancomycin Trough Rheumatoid Factor Complement C4 Miscellaneous Test Crossmatch 10/01/16 10/01/16 10/01/16 06:00 06:00 12:37 WBC 12.6 H RBC 2.75 L Hgb 7.3 L Hct 23.3 L MCV MCH 27 L MCHC RDW 20.6 H Plt Count 72 L Lymph % (Auto) [place] % (Auto) Lymph # [place] # Baso # Seg Neutrophils % Seg Neuts % (Manual) 31.0 L Lymphocytes % (Manual) 8.0 L Monocytes % (Manual) Eosinophils % (Manual) Basophils % (Manual) Nucleated RBC % 3.0 H Seg Neutrophils # Seg Neutrophils # Man Lymphocytes # (Manual) 1.0 L Monocytes # (Manual) Eosinophils # (Manual) Basophils # (Manual) PT INR Fibrinogen dRVVT Confirm Interp Factor V Activity POC ABG pH POC ABG pCO2 POC ABG pO2 ABG pO2 ABG HCO3 ABG Base Excess ABG Hemoglobin Oxyhemoglobin Sodium 127 L Potassium Chloride 86.8 L Carbon Dioxide 20 L BUN 42 H Creatinine 3.5 H Glucose POC Glucose 65 L Lactic Acid Calcium 7.0 L Phosphorus Magnesium Direct Bilirubin AST ALT Alkaline Phosphatase Lactate Dehydrogenase Troponin T C-Reactive Protein Total Protein Albumin Prealbumin Triglycerides Cholesterol LDL Cholesterol Direct HDL Cholesterol Urine pH Urine WBC (Auto) Urine Creatinine Urine Total Protein Fluid Total Protein Vancomycin Trough Rheumatoid Factor Complement C4 Miscellaneous Test Crossmatch 10/01/16 10/01/16 10/02/16 17:39 23:32 00:59 WBC RBC Hgb Hct MCV MCH MCHC RDW Plt Count Lymph % (Auto) [place] % (Auto) Lymph # [place] # Baso # Seg Neutrophils % Seg Neuts % (Manual) Lymphocytes % (Manual) Monocytes % (Manual) Eosinophils % (Manual) Basophils % (Manual) Nucleated RBC % Seg Neutrophils # Seg Neutrophils # Man Lymphocytes # (Manual) Monocytes # (Manual) Eosinophils # (Manual) Basophils # (Manual) PT INR Fibrinogen dRVVT Confirm Interp Factor V Activity POC ABG pH POC ABG pCO2 POC ABG pO2 ABG pO2 ABG HCO3 ABG Base Excess ABG Hemoglobin Oxyhemoglobin Sodium Potassium Chloride Carbon Dioxide BUN Creatinine Glucose POC Glucose 107 H 52 L 145 H Lactic Acid Calcium Phosphorus Magnesium Direct Bilirubin AST ALT Alkaline Phosphatase Lactate Dehydrogenase Troponin T C-Reactive Protein Total Protein Albumin Prealbumin Triglycerides Cholesterol LDL Cholesterol Direct HDL Cholesterol Urine pH Urine WBC (Auto) Urine Creatinine Urine Total Protein Fluid Total Protein Vancomycin Trough Rheumatoid Factor Complement C4 Miscellaneous Test Crossmatch 10/02/16 10/02/16 10/02/16 10:30 10:50 10:50 WBC 14.7 H RBC 2.76 L Hgb 7.4 L Hct 23.6 L MCV MCH 27 L MCHC RDW 20.2 H Plt Count 79 L Lymph % (Auto) [place] % (Auto) Lymph # [place] # Baso # Seg Neutrophils % Seg Neuts % (Manual) 86.0 H Lymphocytes % (Manual) 6.0 L Monocytes % (Manual) Eosinophils % (Manual) Basophils % (Manual) Nucleated RBC % Seg Neutrophils # Seg Neutrophils # Man 12.6 H Lymphocytes # (Manual) 0.9 L Monocytes # (Manual) Eosinophils # (Manual) Basophils # (Manual) PT INR Fibrinogen dRVVT Confirm Interp Factor V Activity POC ABG pH 7.486 H POC ABG pCO2 30.1 L POC ABG pO2 108 H ABG pO2 ABG HCO3 ABG Base Excess ABG Hemoglobin Oxyhemoglobin Sodium 131 L Potassium 3.4 L Chloride 89.9 L Carbon Dioxide BUN 26 H Creatinine 2.6 H Glucose POC Glucose Lactic Acid Calcium 7.0 L Phosphorus Magnesium Direct Bilirubin AST ALT Alkaline Phosphatase Lactate Dehydrogenase Troponin T C-Reactive Protein Total Protein Albumin Prealbumin Triglycerides Cholesterol LDL Cholesterol Direct HDL Cholesterol Urine pH Urine WBC (Auto) Urine Creatinine Urine Total Protein Fluid Total Protein Vancomycin Trough Rheumatoid Factor Complement C4 Miscellaneous Test Crossmatch 10/02/16 10/03/16 10/03/16 23:45 00:45 05:10 WBC 12.9 H RBC 2.77 L Hgb 7.6 L Hct 23.7 L MCV MCH 27 L MCHC RDW 19.7 H Plt Count 89 L Lymph % (Auto) [place] % (Auto) Lymph # [place] # Baso # Seg Neutrophils % Seg Neuts % (Manual) Lymphocytes % (Manual) 8.0 L Monocytes % (Manual) Eosinophils % (Manual) Basophils % (Manual) Nucleated RBC % Seg Neutrophils # 11.9 H Seg Neutrophils # Man Lymphocytes # (Manual) 1.0 L Monocytes # (Manual) Eosinophils # (Manual) Basophils # (Manual) PT INR Fibrinogen dRVVT Confirm Interp Factor V Activity POC ABG pH POC ABG pCO2 POC ABG pO2 ABG pO2 ABG HCO3 ABG Base Excess ABG Hemoglobin Oxyhemoglobin Sodium Potassium Chloride Carbon Dioxide BUN Creatinine Glucose POC Glucose 55 L 199 H Lactic Acid Calcium Phosphorus Magnesium Direct Bilirubin AST ALT Alkaline Phosphatase Lactate Dehydrogenase Troponin T C-Reactive Protein Total Protein Albumin Prealbumin Triglycerides Cholesterol LDL Cholesterol Direct HDL Cholesterol Urine pH Urine WBC (Auto) Urine Creatinine Urine Total Protein Fluid Total Protein Vancomycin Trough Rheumatoid Factor Complement C4 Miscellaneous Test Crossmatch 10/03/16 10/03/16 10/03/16 05:10 12:14 13:18 WBC RBC Hgb Hct MCV MCH MCHC RDW Plt Count Lymph % (Auto) [place] % (Auto) Lymph # [place] # Baso # Seg Neutrophils % Seg Neuts % (Manual) Lymphocytes % (Manual) Monocytes % (Manual) Eosinophils % (Manual) Basophils % (Manual) Nucleated RBC % Seg Neutrophils # Seg Neutrophils # Man Lymphocytes # (Manual) Monocytes # (Manual) Eosinophils # (Manual) Basophils # (Manual) PT INR Fibrinogen dRVVT Confirm Interp Factor V Activity POC ABG pH POC ABG pCO2 POC ABG pO2 ABG pO2 ABG HCO3 ABG Base Excess ABG Hemoglobin Oxyhemoglobin Sodium 129 L Potassium 3.3 L Chloride 88.8 L Carbon Dioxide 20 L BUN 29 H Creatinine 2.8 H Glucose POC Glucose 68 L 127 H Lactic Acid Calcium 7.2 L Phosphorus Magnesium Direct Bilirubin AST ALT Alkaline Phosphatase Lactate Dehydrogenase Troponin T C-Reactive Protein Total Protein Albumin Prealbumin Triglycerides Cholesterol LDL Cholesterol Direct HDL Cholesterol Urine pH Urine WBC (Auto) Urine Creatinine Urine Total Protein Fluid Total Protein Vancomycin Trough Rheumatoid Factor Complement C4 Miscellaneous Test Crossmatch 10/03/16 10/03/16 10/03/16 14:42 18:21 19:09 WBC RBC Hgb Hct MCV MCH MCHC RDW Plt Count Lymph % (Auto) [place] % (Auto) Lymph # [place] # Baso # Seg Neutrophils % Seg Neuts % (Manual) Lymphocytes % (Manual) Monocytes % (Manual) Eosinophils % (Manual) Basophils % (Manual) Nucleated RBC % Seg Neutrophils # Seg Neutrophils # Man Lymphocytes # (Manual) Monocytes # (Manual) Eosinophils # (Manual) Basophils # (Manual) PT INR Fibrinogen dRVVT Confirm Interp Factor V Activity POC ABG pH 7.499 H POC ABG pCO2 28.4 L POC ABG pO2 44 L ABG pO2 ABG HCO3 ABG Base Excess ABG Hemoglobin Oxyhemoglobin Sodium Potassium Chloride Carbon Dioxide BUN Creatinine Glucose POC Glucose 64 L 205 H Lactic Acid Calcium Phosphorus Magnesium Direct Bilirubin AST ALT Alkaline Phosphatase Lactate Dehydrogenase Troponin T C-Reactive Protein Total Protein Albumin Prealbumin Triglycerides Cholesterol LDL Cholesterol Direct HDL Cholesterol Urine pH Urine WBC (Auto) Urine Creatinine Urine Total Protein Fluid Total Protein Vancomycin Trough Rheumatoid Factor Complement C4 Miscellaneous Test Crossmatch 10/03/16 10/04/16 10/04/16 23:33 04:18 06:30 WBC RBC 2.54 L Hgb 7.1 L Hct 21.7 L MCV MCH MCHC RDW 19.5 H Plt Count 76 L Lymph % (Auto) [place] % (Auto) Lymph # [place] # Baso # Seg Neutrophils % Seg Neuts % (Manual) 88.0 H Lymphocytes % (Manual) 6.0 L Monocytes % (Manual) Eosinophils % (Manual) Basophils % (Manual) Nucleated RBC % Seg Neutrophils # Seg Neutrophils # Man 8.8 H Lymphocytes # (Manual) 0.6 L Monocytes # (Manual) Eosinophils # (Manual) Basophils # (Manual) PT INR Fibrinogen dRVVT Confirm Interp Factor V Activity POC ABG pH 7.461 H POC ABG pCO2 33.6 L POC ABG pO2 211 H ABG pO2 ABG HCO3 ABG Base Excess ABG Hemoglobin Oxyhemoglobin Sodium Potassium Chloride Carbon Dioxide BUN Creatinine Glucose POC Glucose 136 H Lactic Acid Calcium Phosphorus Magnesium Direct Bilirubin AST ALT Alkaline Phosphatase Lactate Dehydrogenase Troponin T C-Reactive Protein Total Protein Albumin Prealbumin Triglycerides Cholesterol LDL Cholesterol Direct HDL Cholesterol Urine pH Urine WBC (Auto) Urine Creatinine Urine Total Protein Fluid Total Protein Vancomycin Trough Rheumatoid Factor Complement C4 Miscellaneous Test Crossmatch 10/04/16 10/04/16 10/04/16 06:30 11:45 17:54 WBC RBC Hgb Hct MCV MCH MCHC RDW Plt Count Lymph % (Auto) [place] % (Auto) Lymph # [place] # Baso # Seg Neutrophils % Seg Neuts % (Manual) Lymphocytes % (Manual) Monocytes % (Manual) Eosinophils % (Manual) Basophils % (Manual) Nucleated RBC % Seg Neutrophils # Seg Neutrophils # Man Lymphocytes # (Manual) Monocytes # (Manual) Eosinophils # (Manual) Basophils # (Manual) PT INR Fibrinogen dRVVT Confirm Interp Factor V Activity POC ABG pH POC ABG pCO2 POC ABG pO2 ABG pO2 ABG HCO3 ABG Base Excess ABG Hemoglobin Oxyhemoglobin Sodium 128 L Potassium Chloride 87.4 L Carbon Dioxide 20 L BUN 34 H Creatinine 2.9 H Glucose 127 H POC Glucose 158 H 160 H Lactic Acid Calcium 7.4 L Phosphorus Magnesium Direct Bilirubin AST ALT Alkaline Phosphatase Lactate Dehydrogenase Troponin T C-Reactive Protein Total Protein Albumin Prealbumin Triglycerides Cholesterol LDL Cholesterol Direct HDL Cholesterol Urine pH Urine WBC (Auto) Urine Creatinine Urine Total Protein Fluid Total Protein Vancomycin Trough Rheumatoid Factor Complement C4 Miscellaneous Test Crossmatch 10/04/16 10/05/16 10/05/16 23:25 04:30 05:00 WBC RBC 2.64 L Hgb 7.5 L Hct 22.6 L MCV MCH MCHC RDW 19.3 H Plt Count 80 L Lymph % (Auto) [place] % (Auto) Lymph # [place] # Baso # Seg Neutrophils % Seg Neuts % (Manual) Lymphocytes % (Manual) 12.0 L Monocytes % (Manual) Eosinophils % (Manual) Basophils % (Manual) Nucleated RBC % Seg Neutrophils # Seg Neutrophils # Man Lymphocytes # (Manual) Monocytes # (Manual) Eosinophils # (Manual) Basophils # (Manual) PT INR Fibrinogen dRVVT Confirm Interp Factor V Activity POC ABG pH 7.475 H POC ABG pCO2 33.3 L POC ABG pO2 140 H ABG pO2 ABG HCO3 ABG Base Excess ABG Hemoglobin Oxyhemoglobin Sodium Potassium Chloride Carbon Dioxide BUN Creatinine Glucose POC Glucose 141 H Lactic Acid Calcium Phosphorus Magnesium Direct Bilirubin AST ALT Alkaline Phosphatase Lactate Dehydrogenase Troponin T C-Reactive Protein Total Protein Albumin Prealbumin Triglycerides Cholesterol LDL Cholesterol Direct HDL Cholesterol Urine pH Urine WBC (Auto) Urine Creatinine Urine Total Protein Fluid Total Protein Vancomycin Trough Rheumatoid Factor Complement C4 Miscellaneous Test Crossmatch 10/05/16 10/05/16 10/05/16 05:00 05:09 12:58 WBC RBC Hgb Hct MCV MCH MCHC RDW Plt Count Lymph % (Auto) [place] % (Auto) Lymph # [place] # Baso # Seg Neutrophils % Seg Neuts % (Manual) Lymphocytes % (Manual) Monocytes % (Manual) Eosinophils % (Manual) Basophils % (Manual) Nucleated RBC % Seg Neutrophils # Seg Neutrophils # Man Lymphocytes # (Manual) Monocytes # (Manual) Eosinophils # (Manual) Basophils # (Manual) PT INR Fibrinogen dRVVT Confirm Interp Factor V Activity POC ABG pH POC ABG pCO2 POC ABG pO2 ABG pO2 ABG HCO3 ABG Base Excess ABG Hemoglobin Oxyhemoglobin Sodium 131 L Potassium Chloride 94.0 L Carbon Dioxide 20 L BUN 22 H Creatinine 2.0 H Glucose 123 H POC Glucose 166 H 179 H Lactic Acid Calcium 7.7 L Phosphorus 2.20 L D Magnesium Direct Bilirubin AST ALT Alkaline Phosphatase Lactate Dehydrogenase Troponin T C-Reactive Protein Total Protein Albumin Prealbumin Triglycerides Cholesterol LDL Cholesterol Direct HDL Cholesterol Urine pH Urine WBC (Auto) Urine Creatinine Urine Total Protein Fluid Total Protein Vancomycin Trough Rheumatoid Factor Complement C4 Miscellaneous Test Crossmatch 10/05/16 10/05/16 10/05/16 15:50 18:53 23:12 WBC RBC Hgb Hct MCV MCH MCHC RDW Plt Count Lymph % (Auto) [place] % (Auto) Lymph # [place] # Baso # Seg Neutrophils % Seg Neuts % (Manual) Lymphocytes % (Manual) Monocytes % (Manual) Eosinophils % (Manual) Basophils % (Manual) Nucleated RBC % Seg Neutrophils # Seg Neutrophils # Man Lymphocytes # (Manual) Monocytes # (Manual) Eosinophils # (Manual) Basophils # (Manual) PT INR Fibrinogen dRVVT Confirm Interp Factor V Activity POC ABG pH POC ABG pCO2 POC ABG pO2 ABG pO2 ABG HCO3 ABG Base Excess ABG Hemoglobin Oxyhemoglobin Sodium Potassium Chloride Carbon Dioxide BUN Creatinine Glucose POC Glucose 150 H 164 H Lactic Acid Calcium Phosphorus Magnesium Direct Bilirubin AST ALT Alkaline Phosphatase Lactate Dehydrogenase Troponin T C-Reactive Protein Total Protein Albumin Prealbumin Triglycerides Cholesterol LDL Cholesterol Direct HDL Cholesterol Urine pH Urine WBC (Auto) Urine Creatinine Urine Total Protein Fluid Total Protein Vancomycin Trough Rheumatoid Factor Complement C4 Miscellaneous Test Crossmatch See Detail 10/06/16 10/06/16 10/06/16 03:50 03:50 04:53 WBC RBC 3.00 L Hgb 8.6 L Hct 25.8 L MCV MCH MCHC RDW 17.9 H Plt Count 65 L Lymph % (Auto) [place] % (Auto) Lymph # [place] # Baso # Seg Neutrophils % Seg Neuts % (Manual) 30.0 L Lymphocytes % (Manual) 5.0 L Monocytes % (Manual) Eosinophils % (Manual) Basophils % (Manual) Nucleated RBC % Seg Neutrophils # Seg Neutrophils # Man Lymphocytes # (Manual) 0.4 L Monocytes # (Manual) Eosinophils # (Manual) Basophils # (Manual) PT INR Fibrinogen dRVVT Confirm Interp Factor V Activity POC ABG pH 7.310 L POC ABG pCO2 49.0 H POC ABG pO2 ABG pO2 ABG HCO3 ABG Base Excess ABG Hemoglobin Oxyhemoglobin Sodium 133 L Potassium Chloride 95.9 L Carbon Dioxide BUN 26 H Creatinine 2.0 H Glucose 116 H POC Glucose Lactic Acid Calcium 7.8 L Phosphorus Magnesium Direct Bilirubin AST ALT Alkaline Phosphatase Lactate Dehydrogenase Troponin T C-Reactive Protein Total Protein Albumin Prealbumin Triglycerides Cholesterol LDL Cholesterol Direct HDL Cholesterol Urine pH Urine WBC (Auto) Urine Creatinine Urine Total Protein Fluid Total Protein Vancomycin Trough Rheumatoid Factor Complement C4 Miscellaneous Test Crossmatch 10/06/16 10/06/16 10/06/16 05:23 11:52 18:34 WBC RBC Hgb Hct MCV MCH MCHC RDW Plt Count Lymph % (Auto) [place] % (Auto) Lymph # [place] # Baso # Seg Neutrophils % Seg Neuts % (Manual) Lymphocytes % (Manual) Monocytes % (Manual) Eosinophils % (Manual) Basophils % (Manual) Nucleated RBC % Seg Neutrophils # Seg Neutrophils # Man Lymphocytes # (Manual) Monocytes # (Manual) Eosinophils # (Manual) Basophils # (Manual) PT INR Fibrinogen dRVVT Confirm Interp Factor V Activity POC ABG pH POC ABG pCO2 POC ABG pO2 ABG pO2 ABG HCO3 ABG Base Excess ABG Hemoglobin Oxyhemoglobin Sodium Potassium Chloride Carbon Dioxide BUN Creatinine Glucose POC Glucose 126 H 116 H 129 H Lactic Acid Calcium Phosphorus Magnesium Direct Bilirubin AST ALT Alkaline Phosphatase Lactate Dehydrogenase Troponin T C-Reactive Protein Total Protein Albumin Prealbumin Triglycerides Cholesterol LDL Cholesterol Direct HDL Cholesterol Urine pH Urine WBC (Auto) Urine Creatinine Urine Total Protein Fluid Total Protein Vancomycin Trough Rheumatoid Factor Complement C4 Miscellaneous Test Crossmatch 10/07/16 10/07/16 10/07/16 03:45 05:00 10:00 WBC 17.0 H RBC 2.68 L Hgb 7.3 L Hct 25.3 L MCV MCH 27 L MCHC 29 L RDW 19.6 H Plt Count 74 L Lymph % (Auto) [place] % (Auto) Lymph # [place] # Baso # Seg Neutrophils % Seg Neuts % (Manual) Lymphocytes % (Manual) 12.0 L Monocytes % (Manual) Eosinophils % (Manual) Basophils % (Manual) Nucleated RBC % 4.0 H Seg Neutrophils # Seg Neutrophils # Man 10.7 H Lymphocytes # (Manual) Monocytes # (Manual) Eosinophils # (Manual) Basophils # (Manual) PT INR Fibrinogen dRVVT Confirm Interp Factor V Activity POC ABG pH POC ABG pCO2 POC ABG pO2 ABG pO2 ABG HCO3 ABG Base Excess ABG Hemoglobin Oxyhemoglobin Sodium 130 L Potassium 3.2 L Chloride 93.9 L Carbon Dioxide 20 L BUN 44 H Creatinine 2.7 H Glucose 129 H POC Glucose Lactic Acid Calcium 7.4 L Phosphorus Magnesium Direct Bilirubin AST ALT 6 L Alkaline Phosphatase 195 H Lactate Dehydrogenase Troponin T C-Reactive Protein Total Protein 4.9 L Albumin 1.0 L Prealbumin Triglycerides Cholesterol LDL Cholesterol Direct HDL Cholesterol Urine pH Urine WBC (Auto) Urine Creatinine Urine Total Protein Fluid Total Protein Vancomycin Trough Rheumatoid Factor Complement C4 Miscellaneous Test Flexitest 1 H Crossmatch 10/07/16 10/07/16 10/07/16 10:00 11:24 18:10 WBC RBC Hgb Hct MCV MCH MCHC RDW Plt Count Lymph % (Auto) [place] % (Auto) Lymph # [place] # Baso # Seg Neutrophils % Seg Neuts % (Manual) Lymphocytes % (Manual) Monocytes % (Manual) Eosinophils % (Manual) Basophils % (Manual) Nucleated RBC % Seg Neutrophils # Seg Neutrophils # Man Lymphocytes # (Manual) Monocytes # (Manual) Eosinophils # (Manual) Basophils # (Manual) PT INR Fibrinogen dRVVT Confirm Interp Factor V Activity POC ABG pH POC ABG pCO2 POC ABG pO2 ABG pO2 ABG HCO3 ABG Base Excess ABG Hemoglobin Oxyhemoglobin Sodium Potassium Chloride Carbon Dioxide BUN Creatinine Glucose POC Glucose 116 H 130 H Lactic Acid Calcium Phosphorus Magnesium Direct Bilirubin AST ALT Alkaline Phosphatase Lactate Dehydrogenase Troponin T C-Reactive Protein 19.40 H Total Protein Albumin Prealbumin Triglycerides Cholesterol LDL Cholesterol Direct HDL Cholesterol Urine pH Urine WBC (Auto) Urine Creatinine Urine Total Protein Fluid Total Protein Vancomycin Trough Rheumatoid Factor Complement C4 Miscellaneous Test Crossmatch 10/07/16 10/08/16 10/08/16 18:30 00:00 04:00 WBC RBC Hgb Hct MCV MCH MCHC RDW Plt Count Lymph % (Auto) [place] % (Auto) Lymph # [place] # Baso # Seg Neutrophils % Seg Neuts % (Manual) Lymphocytes % (Manual) Monocytes % (Manual) Eosinophils % (Manual) Basophils % (Manual) Nucleated RBC % Seg Neutrophils # Seg Neutrophils # Man Lymphocytes # (Manual) Monocytes # (Manual) Eosinophils # (Manual) Basophils # (Manual) PT INR Fibrinogen dRVVT Confirm Interp Factor V Activity POC ABG pH POC ABG pCO2 POC ABG pO2 ABG pO2 ABG HCO3 ABG Base Excess ABG Hemoglobin Oxyhemoglobin Sodium 132 L Potassium 3.3 L Chloride 93.6 L Carbon Dioxide 17 L BUN 59 H Creatinine 2.7 H Glucose 121 H POC Glucose 122 H Lactic Acid Calcium 7.6 L Phosphorus Magnesium Direct Bilirubin AST ALT Alkaline Phosphatase Lactate Dehydrogenase Troponin T C-Reactive Protein Total Protein Albumin Prealbumin Triglycerides Cholesterol LDL Cholesterol Direct HDL Cholesterol Urine pH Urine WBC (Auto) > 182.0 H Urine Creatinine Urine Total Protein Fluid Total Protein Vancomycin Trough Rheumatoid Factor Complement C4 Miscellaneous Test Crossmatch 10/08/16 10/08/16 10/08/16 04:30 05:30 11:51 WBC RBC 5.15 H Hgb 14.4 H D Hct 44.5 H D MCV MCH MCHC RDW 19.5 H Plt Count 56 L Lymph % (Auto) [place] % (Auto) Lymph # [place] # Baso # Seg Neutrophils % Seg Neuts % (Manual) 24.0 L Lymphocytes % (Manual) 8.0 L Monocytes % (Manual) Eosinophils % (Manual) Basophils % (Manual) Nucleated RBC % 9.0 H Seg Neutrophils # Seg Neutrophils # Man Lymphocytes # (Manual) 0.7 L Monocytes # (Manual) Eosinophils # (Manual) Basophils # (Manual) PT INR Fibrinogen dRVVT Confirm Interp Factor V Activity POC ABG pH POC ABG pCO2 POC ABG pO2 ABG pO2 ABG HCO3 ABG Base Excess ABG Hemoglobin Oxyhemoglobin Sodium Potassium Chloride Carbon Dioxide BUN Creatinine Glucose POC Glucose 125 H 150 H Lactic Acid Calcium Phosphorus Magnesium Direct Bilirubin AST ALT Alkaline Phosphatase Lactate Dehydrogenase Troponin T C-Reactive Protein Total Protein Albumin Prealbumin Triglycerides Cholesterol LDL Cholesterol Direct HDL Cholesterol Urine pH Urine WBC (Auto) Urine Creatinine Urine Total Protein Fluid Total Protein Vancomycin Trough Rheumatoid Factor Complement C4 Miscellaneous Test Crossmatch 10/08/16 10/08/16 10/08/16 12:49 17:07 19:30 WBC RBC Hgb 7.1 L D Hct 22.4 L D MCV MCH MCHC RDW Plt Count Lymph % (Auto) [place] % (Auto) Lymph # [place] # Baso # Seg Neutrophils % Seg Neuts % (Manual) Lymphocytes % (Manual) Monocytes % (Manual) Eosinophils % (Manual) Basophils % (Manual) Nucleated RBC % Seg Neutrophils # Seg Neutrophils # Man Lymphocytes # (Manual) Monocytes # (Manual) Eosinophils # (Manual) Basophils # (Manual) PT INR Fibrinogen dRVVT Confirm Interp Factor V Activity POC ABG pH POC ABG pCO2 28.2 L POC ABG pO2 111 H ABG pO2 ABG HCO3 ABG Base Excess ABG Hemoglobin Oxyhemoglobin Sodium Potassium Chloride Carbon Dioxide BUN Creatinine Glucose POC Glucose 145 H Lactic Acid Calcium Phosphorus Magnesium Direct Bilirubin AST ALT Alkaline Phosphatase Lactate Dehydrogenase Troponin T C-Reactive Protein Total Protein Albumin Prealbumin Triglycerides Cholesterol LDL Cholesterol Direct HDL Cholesterol Urine pH Urine WBC (Auto) Urine Creatinine Urine Total Protein Fluid Total Protein Vancomycin Trough Rheumatoid Factor Complement C4 Miscellaneous Test Crossmatch 10/08/16 10/09/16 10/09/16 19:30 03:45 03:45 WBC 12.6 H RBC 2.36 L Hgb 6.7 L Hct 21.1 L MCV MCH MCHC RDW 19.5 H Plt Count 75 L Lymph % (Auto) [place] % (Auto) Lymph # [place] # Baso # Seg Neutrophils % Seg Neuts % (Manual) Lymphocytes % (Manual) Monocytes % (Manual) 10.0 H Eosinophils % (Manual) Basophils % (Manual) Nucleated RBC % 3.0 H Seg Neutrophils # Seg Neutrophils # Man Lymphocytes # (Manual) Monocytes # (Manual) 1.3 H Eosinophils # (Manual) Basophils # (Manual) PT 18.0 H INR 1.41 H Fibrinogen dRVVT Confirm Interp Factor V Activity POC ABG pH POC ABG pCO2 POC ABG pO2 ABG pO2 ABG HCO3 ABG Base Excess ABG Hemoglobin Oxyhemoglobin Sodium 135 L Potassium Chloride Carbon Dioxide 17 L BUN 81 H Creatinine 3.2 H Glucose 109 H POC Glucose Lactic Acid Calcium 7.4 L Phosphorus 4.60 H D Magnesium Direct Bilirubin AST ALT Alkaline Phosphatase Lactate Dehydrogenase Troponin T C-Reactive Protein Total Protein Albumin Prealbumin Triglycerides Cholesterol LDL Cholesterol Direct HDL Cholesterol Urine pH Urine WBC (Auto) Urine Creatinine Urine Total Protein Fluid Total Protein Vancomycin Trough Rheumatoid Factor Complement C4 Miscellaneous Test Crossmatch 10/09/16 10/09/16 10/09/16 03:45 05:14 07:20 WBC RBC Hgb Hct MCV MCH MCHC RDW Plt Count Lymph % (Auto) [place] % (Auto) Lymph # [place] # Baso # Seg Neutrophils % Seg Neuts % (Manual) Lymphocytes % (Manual) Monocytes % (Manual) Eosinophils % (Manual) Basophils % (Manual) Nucleated RBC % Seg Neutrophils # Seg Neutrophils # Man Lymphocytes # (Manual) Monocytes # (Manual) Eosinophils # (Manual) Basophils # (Manual) PT 19.0 H INR 1.51 H Fibrinogen dRVVT Confirm Interp Factor V Activity POC ABG pH POC ABG pCO2 POC ABG pO2 ABG pO2 ABG HCO3 ABG Base Excess ABG Hemoglobin Oxyhemoglobin Sodium Potassium Chloride Carbon Dioxide BUN Creatinine Glucose POC Glucose 151 H Lactic Acid Calcium Phosphorus Magnesium Direct Bilirubin AST ALT Alkaline Phosphatase Lactate Dehydrogenase Troponin T C-Reactive Protein Total Protein Albumin Prealbumin Triglycerides Cholesterol LDL Cholesterol Direct HDL Cholesterol Urine pH Urine WBC (Auto) Urine Creatinine Urine Total Protein Fluid Total Protein Vancomycin Trough Rheumatoid Factor Complement C4 Miscellaneous Test Crossmatch See Detail 10/09/16 10/09/16 10/09/16 11:46 16:20 16:43 WBC RBC Hgb 7.2 L Hct 22.2 L MCV MCH MCHC RDW Plt Count Lymph % (Auto) [place] % (Auto) Lymph # [place] # Baso # Seg Neutrophils % Seg Neuts % (Manual) Lymphocytes % (Manual) Monocytes % (Manual) Eosinophils % (Manual) Basophils % (Manual) Nucleated RBC % Seg Neutrophils # Seg Neutrophils # Man Lymphocytes # (Manual) Monocytes # (Manual) Eosinophils # (Manual) Basophils # (Manual) PT INR Fibrinogen dRVVT Confirm Interp Factor V Activity POC ABG pH POC ABG pCO2 POC ABG pO2 ABG pO2 ABG HCO3 ABG Base Excess ABG Hemoglobin Oxyhemoglobin Sodium Potassium Chloride Carbon Dioxide BUN Creatinine Glucose POC Glucose 133 H 141 H Lactic Acid Calcium Phosphorus Magnesium Direct Bilirubin AST ALT Alkaline Phosphatase Lactate Dehydrogenase Troponin T C-Reactive Protein Total Protein Albumin Prealbumin Triglycerides Cholesterol LDL Cholesterol Direct HDL Cholesterol Urine pH Urine WBC (Auto) Urine Creatinine Urine Total Protein Fluid Total Protein Vancomycin Trough Rheumatoid Factor Complement C4 Miscellaneous Test Crossmatch 10/10/16 10/10/16 10/10/16 05:00 05:00 11:19 WBC 18.5 H RBC 2.19 L Hgb 6.4 L Hct 19.6 L* MCV MCH MCHC RDW 19.3 H Plt Count 93 L Lymph % (Auto) [place] % (Auto) Lymph # [place] # Baso # Seg Neutrophils % Seg Neuts % (Manual) Lymphocytes % (Manual) 10.0 L Monocytes % (Manual) Eosinophils % (Manual) Basophils % (Manual) Nucleated RBC % 4.0 H Seg Neutrophils # Seg Neutrophils # Man 11.3 H Lymphocytes # (Manual) Monocytes # (Manual) Eosinophils # (Manual) Basophils # (Manual) PT INR Fibrinogen dRVVT Confirm Interp Factor V Activity POC ABG pH POC ABG pCO2 POC ABG pO2 ABG pO2 ABG HCO3 ABG Base Excess ABG Hemoglobin Oxyhemoglobin Sodium Potassium 5.7 H D Chloride Carbon Dioxide 16 L BUN 94 H Creatinine 3.1 H Glucose 131 H POC Glucose 153 H Lactic Acid Calcium 8.2 L Phosphorus 5.10 H Magnesium 2.40 H Direct Bilirubin 0.3 H AST ALT < 5 L Alkaline Phosphatase 319 H Lactate Dehydrogenase Troponin T C-Reactive Protein Total Protein 5.1 L Albumin 1.0 L Prealbumin Triglycerides Cholesterol LDL Cholesterol Direct HDL Cholesterol Urine pH Urine WBC (Auto) Urine Creatinine Urine Total Protein Fluid Total Protein Vancomycin Trough Rheumatoid Factor Complement C4 Miscellaneous Test Crossmatch 10/10/16 10/10/16 10/11/16 17:50 23:30 04:15 WBC RBC Hgb Hct MCV MCH MCHC RDW Plt Count Lymph % (Auto) [place] % (Auto) Lymph # [place] # Baso # Seg Neutrophils % Seg Neuts % (Manual) Lymphocytes % (Manual) Monocytes % (Manual) Eosinophils % (Manual) Basophils % (Manual) Nucleated RBC % Seg Neutrophils # Seg Neutrophils # Man Lymphocytes # (Manual) Monocytes # (Manual) Eosinophils # (Manual) Basophils # (Manual) PT INR Fibrinogen dRVVT Confirm Interp Factor V Activity POC ABG pH POC ABG pCO2 POC ABG pO2 ABG pO2 ABG HCO3 ABG Base Excess ABG Hemoglobin Oxyhemoglobin Sodium Potassium Chloride 96.4 L Carbon Dioxide 21 L BUN 57 H Creatinine 2.1 H Glucose 151 H POC Glucose 146 H 141 H Lactic Acid Calcium 8.3 L Phosphorus Magnesium Direct Bilirubin AST ALT Alkaline Phosphatase Lactate Dehydrogenase Troponin T C-Reactive Protein Total Protein Albumin Prealbumin Triglycerides Cholesterol LDL Cholesterol Direct HDL Cholesterol Urine pH Urine WBC (Auto) Urine Creatinine Urine Total Protein Fluid Total Protein Vancomycin Trough Rheumatoid Factor Complement C4 Miscellaneous Test Crossmatch 10/11/16 10/11/16 10/11/16 04:15 04:15 05:30 WBC 28.3 H RBC 3.12 L Hgb 9.3 L Hct 28.7 L D MCV MCH MCHC RDW 17.7 H Plt Count 128 L Lymph % (Auto) [place] % (Auto) Lymph # [place] # Baso # Seg Neutrophils % Seg Neuts % (Manual) Lymphocytes % (Manual) Monocytes % (Manual) Eosinophils % (Manual) Basophils % (Manual) Nucleated RBC % Seg Neutrophils # Seg Neutrophils # Man Lymphocytes # (Manual) Monocytes # (Manual) Eosinophils # (Manual) Basophils # (Manual) PT INR Fibrinogen dRVVT Confirm Interp Factor V Activity POC ABG pH POC ABG pCO2 POC ABG pO2 ABG pO2 ABG HCO3 ABG Base Excess ABG Hemoglobin Oxyhemoglobin Sodium Potassium Chloride Carbon Dioxide BUN Creatinine Glucose POC Glucose 167 H Lactic Acid Calcium Phosphorus Magnesium Direct Bilirubin AST ALT Alkaline Phosphatase Lactate Dehydrogenase Troponin T C-Reactive Protein 15.80 H Total Protein Albumin Prealbumin Triglycerides Cholesterol LDL Cholesterol Direct HDL Cholesterol Urine pH Urine WBC (Auto) Urine Creatinine Urine Total Protein Fluid Total Protein Vancomycin Trough Rheumatoid Factor Complement C4 Miscellaneous Test Crossmatch 10/11/16 10/11/16 10/11/16 11:40 15:49 23:57 WBC RBC Hgb Hct MCV MCH MCHC RDW Plt Count Lymph % (Auto) [place] % (Auto) Lymph # [place] # Baso # Seg Neutrophils % Seg Neuts % (Manual) Lymphocytes % (Manual) Monocytes % (Manual) Eosinophils % (Manual) Basophils % (Manual) Nucleated RBC % Seg Neutrophils # Seg Neutrophils # Man Lymphocytes # (Manual) Monocytes # (Manual) Eosinophils # (Manual) Basophils # (Manual) PT INR Fibrinogen dRVVT Confirm Interp Factor V Activity POC ABG pH POC ABG pCO2 POC ABG pO2 ABG pO2 ABG HCO3 ABG Base Excess ABG Hemoglobin Oxyhemoglobin Sodium Potassium Chloride Carbon Dioxide BUN Creatinine Glucose POC Glucose 139 H 168 H 161 H Lactic Acid Calcium Phosphorus Magnesium Direct Bilirubin AST ALT Alkaline Phosphatase Lactate Dehydrogenase Troponin T C-Reactive Protein Total Protein Albumin Prealbumin Triglycerides Cholesterol LDL Cholesterol Direct HDL Cholesterol Urine pH Urine WBC (Auto) Urine Creatinine Urine Total Protein Fluid Total Protein Vancomycin Trough Rheumatoid Factor Complement C4 Miscellaneous Test Crossmatch 10/12/16 10/12/16 10/12/16 04:40 04:40 05:44 WBC 22.5 H RBC 2.88 L Hgb 8.8 L Hct 26.8 L MCV MCH MCHC RDW 17.8 H Plt Count Lymph % (Auto) [place] % (Auto) Lymph # [place] # Baso # Seg Neutrophils % Seg Neuts % (Manual) Lymphocytes % (Manual) Monocytes % (Manual) Eosinophils % (Manual) Basophils % (Manual) Nucleated RBC % Seg Neutrophils # Seg Neutrophils # Man Lymphocytes # (Manual) Monocytes # (Manual) Eosinophils # (Manual) Basophils # (Manual) PT INR Fibrinogen dRVVT Confirm Interp Factor V Activity POC ABG pH POC ABG pCO2 POC ABG pO2 ABG pO2 ABG HCO3 ABG Base Excess ABG Hemoglobin Oxyhemoglobin Sodium 134 L Potassium Chloride 93.0 L Carbon Dioxide BUN 74 H Creatinine 2.5 H Glucose 137 H POC Glucose 158 H Lactic Acid Calcium 8.2 L Phosphorus Magnesium Direct Bilirubin AST ALT Alkaline Phosphatase Lactate Dehydrogenase Troponin T C-Reactive Protein Total Protein Albumin Prealbumin Triglycerides Cholesterol LDL Cholesterol Direct HDL Cholesterol Urine pH Urine WBC (Auto) Urine Creatinine Urine Total Protein Fluid Total Protein Vancomycin Trough Rheumatoid Factor Complement C4 Miscellaneous Test Crossmatch 10/12/16 10/12/16 10/12/16 12:27 18:18 23:46 WBC RBC Hgb Hct MCV MCH MCHC RDW Plt Count Lymph % (Auto) [place] % (Auto) Lymph # [place] # Baso # Seg Neutrophils % Seg Neuts % (Manual) Lymphocytes % (Manual) Monocytes % (Manual) Eosinophils % (Manual) Basophils % (Manual) Nucleated RBC % Seg Neutrophils # Seg Neutrophils # Man Lymphocytes # (Manual) Monocytes # (Manual) Eosinophils # (Manual) Basophils # (Manual) PT INR Fibrinogen dRVVT Confirm Interp Factor V Activity POC ABG pH POC ABG pCO2 POC ABG pO2 ABG pO2 ABG HCO3 ABG Base Excess ABG Hemoglobin Oxyhemoglobin Sodium Potassium Chloride Carbon Dioxide BUN Creatinine Glucose POC Glucose 153 H 140 H 150 H Lactic Acid Calcium Phosphorus Magnesium Direct Bilirubin AST ALT Alkaline Phosphatase Lactate Dehydrogenase Troponin T C-Reactive Protein Total Protein Albumin Prealbumin Triglycerides Cholesterol LDL Cholesterol Direct HDL Cholesterol Urine pH Urine WBC (Auto) Urine Creatinine Urine Total Protein Fluid Total Protein Vancomycin Trough Rheumatoid Factor Complement C4 Miscellaneous Test Crossmatch 10/13/16 10/13/16 10/13/16 06:22 09:20 12:29 WBC RBC Hgb Hct MCV MCH MCHC RDW Plt Count Lymph % (Auto) [place] % (Auto) Lymph # [place] # Baso # Seg Neutrophils % Seg Neuts % (Manual) Lymphocytes % (Manual) Monocytes % (Manual) Eosinophils % (Manual) Basophils % (Manual) Nucleated RBC % Seg Neutrophils # Seg Neutrophils # Man Lymphocytes # (Manual) Monocytes # (Manual) Eosinophils # (Manual) Basophils # (Manual) PT INR Fibrinogen dRVVT Confirm Interp Factor V Activity POC ABG pH POC ABG pCO2 POC ABG pO2 ABG pO2 ABG HCO3 ABG Base Excess ABG Hemoglobin Oxyhemoglobin Sodium Potassium Chloride Carbon Dioxide BUN Creatinine Glucose POC Glucose 165 H 193 H Lactic Acid Calcium Phosphorus Magnesium Direct Bilirubin AST ALT Alkaline Phosphatase Lactate Dehydrogenase Troponin T C-Reactive Protein Total Protein Albumin Prealbumin Triglycerides Cholesterol LDL Cholesterol Direct HDL Cholesterol Urine pH Urine WBC (Auto) Urine Creatinine Urine Total Protein Fluid Total Protein Vancomycin Trough Rheumatoid Factor Complement C4 Miscellaneous Test Flexitest 1 H Crossmatch 10/13/16 10/13/16 10/13/16 18:09 Unknown Unknown WBC 23.4 H RBC 2.83 L Hgb 8.7 L Hct 26.1 L MCV MCH MCHC RDW 18.1 H Plt Count Lymph % (Auto) [place] % (Auto) Lymph # [place] # Baso # Seg Neutrophils % Seg Neuts % (Manual) Lymphocytes % (Manual) Monocytes % (Manual) Eosinophils % (Manual) Basophils % (Manual) Nucleated RBC % Seg Neutrophils # Seg Neutrophils # Man Lymphocytes # (Manual) Monocytes # (Manual) Eosinophils # (Manual) Basophils # (Manual) PT INR Fibrinogen dRVVT Confirm Interp Factor V Activity POC ABG pH POC ABG pCO2 POC ABG pO2 ABG pO2 ABG HCO3 ABG Base Excess ABG Hemoglobin Oxyhemoglobin Sodium Potassium Chloride 95.8 L Carbon Dioxide BUN 82 H Creatinine 2.6 H Glucose 152 H POC Glucose 166 H Lactic Acid Calcium Phosphorus Magnesium Direct Bilirubin AST ALT Alkaline Phosphatase Lactate Dehydrogenase Troponin T C-Reactive Protein Total Protein Albumin Prealbumin Triglycerides Cholesterol LDL Cholesterol Direct HDL Cholesterol Urine pH Urine WBC (Auto) Urine Creatinine Urine Total Protein Fluid Total Protein Vancomycin Trough Rheumatoid Factor Complement C4 Miscellaneous Test Crossmatch 10/14/16 10/14/16 10/14/16 05:38 06:35 08:10 WBC 20.7 H RBC 2.81 L Hgb 8.4 L Hct 27.2 L MCV MCH MCHC RDW 19.4 H Plt Count Lymph % (Auto) [place] % (Auto) Lymph # [place] # Baso # Seg Neutrophils % Seg Neuts % (Manual) Lymphocytes % (Manual) Monocytes % (Manual) Eosinophils % (Manual) Basophils % (Manual) Nucleated RBC % Seg Neutrophils # Seg Neutrophils # Man Lymphocytes # (Manual) Monocytes # (Manual) Eosinophils # (Manual) Basophils # (Manual) PT INR Fibrinogen dRVVT Confirm Interp Factor V Activity POC ABG pH POC ABG pCO2 POC ABG pO2 ABG pO2 ABG HCO3 ABG Base Excess ABG Hemoglobin Oxyhemoglobin Sodium Potassium Chloride Carbon Dioxide BUN 58 H Creatinine 1.9 H Glucose 169 H POC Glucose 195 H Lactic Acid Calcium Phosphorus Magnesium Direct Bilirubin AST ALT Alkaline Phosphatase Lactate Dehydrogenase Troponin T C-Reactive Protein Total Protein Albumin Prealbumin Triglycerides Cholesterol LDL Cholesterol Direct HDL Cholesterol Urine pH Urine WBC (Auto) Urine Creatinine Urine Total Protein Fluid Total Protein Vancomycin Trough Rheumatoid Factor Complement C4 Miscellaneous Test Crossmatch 10/14/16 10/14/16 10/14/16 11:44 17:13 23:28 WBC RBC Hgb Hct MCV MCH MCHC RDW Plt Count Lymph % (Auto) [place] % (Auto) Lymph # [place] # Baso # Seg Neutrophils % Seg Neuts % (Manual) Lymphocytes % (Manual) Monocytes % (Manual) Eosinophils % (Manual) Basophils % (Manual) Nucleated RBC % Seg Neutrophils # Seg Neutrophils # Man Lymphocytes # (Manual) Monocytes # (Manual) Eosinophils # (Manual) Basophils # (Manual) PT INR Fibrinogen dRVVT Confirm Interp Factor V Activity POC ABG pH POC ABG pCO2 POC ABG pO2 ABG pO2 ABG HCO3 ABG Base Excess ABG Hemoglobin Oxyhemoglobin Sodium Potassium Chloride Carbon Dioxide BUN Creatinine Glucose POC Glucose 174 H 121 H 151 H Lactic Acid Calcium Phosphorus Magnesium Direct Bilirubin AST ALT Alkaline Phosphatase Lactate Dehydrogenase Troponin T C-Reactive Protein Total Protein Albumin Prealbumin Triglycerides Cholesterol LDL Cholesterol Direct HDL Cholesterol Urine pH Urine WBC (Auto) Urine Creatinine Urine Total Protein Fluid Total Protein Vancomycin Trough Rheumatoid Factor Complement C4 Miscellaneous Test Crossmatch 10/15/16 10/15/16 10/15/16 05:06 12:26 17:48 WBC RBC Hgb Hct MCV MCH MCHC RDW Plt Count Lymph % (Auto) [place] % (Auto) Lymph # [place] # Baso # Seg Neutrophils % Seg Neuts % (Manual) Lymphocytes % (Manual) Monocytes % (Manual) Eosinophils % (Manual) Basophils % (Manual) Nucleated RBC % Seg Neutrophils # Seg Neutrophils # Man Lymphocytes # (Manual) Monocytes # (Manual) Eosinophils # (Manual) Basophils # (Manual) PT INR Fibrinogen dRVVT Confirm Interp Factor V Activity POC ABG pH POC ABG pCO2 POC ABG pO2 ABG pO2 ABG HCO3 ABG Base Excess ABG Hemoglobin Oxyhemoglobin Sodium Potassium Chloride Carbon Dioxide BUN Creatinine Glucose POC Glucose 151 H 149 H 153 H Lactic Acid Calcium Phosphorus Magnesium Direct Bilirubin AST ALT Alkaline Phosphatase Lactate Dehydrogenase Troponin T C-Reactive Protein Total Protein Albumin Prealbumin Triglycerides Cholesterol LDL Cholesterol Direct HDL Cholesterol Urine pH Urine WBC (Auto) Urine Creatinine Urine Total Protein Fluid Total Protein Vancomycin Trough Rheumatoid Factor Complement C4 Miscellaneous Test Crossmatch 10/15/16 10/15/16 10/16/16 Unknown Unknown 00:02 WBC 23.4 H RBC 2.78 L Hgb 8.5 L Hct 25.7 L MCV MCH MCHC RDW 18.7 H Plt Count Lymph % (Auto) [place] % (Auto) Lymph # [place] # Baso # Seg Neutrophils % Seg Neuts % (Manual) Lymphocytes % (Manual) Monocytes % (Manual) Eosinophils % (Manual) Basophils % (Manual) Nucleated RBC % Seg Neutrophils # Seg Neutrophils # Man Lymphocytes # (Manual) Monocytes # (Manual) Eosinophils # (Manual) Basophils # (Manual) PT INR Fibrinogen dRVVT Confirm Interp Factor V Activity POC ABG pH POC ABG pCO2 POC ABG pO2 ABG pO2 ABG HCO3 ABG Base Excess ABG Hemoglobin Oxyhemoglobin Sodium Potassium Chloride Carbon Dioxide BUN 73 H Creatinine 2.3 H Glucose 120 H POC Glucose 137 H Lactic Acid Calcium Phosphorus Magnesium Direct Bilirubin AST ALT Alkaline Phosphatase Lactate Dehydrogenase Troponin T C-Reactive Protein Total Protein Albumin Prealbumin Triglycerides Cholesterol LDL Cholesterol Direct HDL Cholesterol Urine pH Urine WBC (Auto) Urine Creatinine Urine Total Protein Fluid Total Protein Vancomycin Trough Rheumatoid Factor Complement C4 Miscellaneous Test Crossmatch 10/16/16 10/16/16 10/16/16 05:44 06:25 06:25 WBC 22.5 H RBC 2.76 L Hgb 8.3 L Hct 25.2 L MCV MCH MCHC RDW 18.3 H Plt Count Lymph % (Auto) [place] % (Auto) Lymph # [place] # Baso # Seg Neutrophils % Seg Neuts % (Manual) Lymphocytes % (Manual) Monocytes % (Manual) Eosinophils % (Manual) Basophils % (Manual) Nucleated RBC % Seg Neutrophils # Seg Neutrophils # Man Lymphocytes # (Manual) Monocytes # (Manual) Eosinophils # (Manual) Basophils # (Manual) PT INR Fibrinogen dRVVT Confirm Interp Factor V Activity POC ABG pH POC ABG pCO2 POC ABG pO2 ABG pO2 ABG HCO3 ABG Base Excess ABG Hemoglobin Oxyhemoglobin Sodium Potassium Chloride Carbon Dioxide BUN 92 H Creatinine 3.0 H Glucose 138 H POC Glucose 110 H Lactic Acid Calcium Phosphorus Magnesium Direct Bilirubin AST ALT Alkaline Phosphatase Lactate Dehydrogenase Troponin T C-Reactive Protein Total Protein Albumin Prealbumin Triglycerides Cholesterol LDL Cholesterol Direct HDL Cholesterol Urine pH Urine WBC (Auto) Urine Creatinine Urine Total Protein Fluid Total Protein Vancomycin Trough Rheumatoid Factor Complement C4 Miscellaneous Test Crossmatch 10/16/16 10/16/16 10/16/16 11:27 11:48 17:36 WBC RBC Hgb Hct MCV MCH MCHC RDW Plt Count Lymph % (Auto) [place] % (Auto) Lymph # [place] # Baso # Seg Neutrophils % Seg Neuts % (Manual) Lymphocytes % (Manual) Monocytes % (Manual) Eosinophils % (Manual) Basophils % (Manual) Nucleated RBC % Seg Neutrophils # Seg Neutrophils # Man Lymphocytes # (Manual) Monocytes # (Manual) Eosinophils # (Manual) Basophils # (Manual) PT INR Fibrinogen dRVVT Confirm Interp Factor V Activity POC ABG pH 7.582 H POC ABG pCO2 27.4 L POC ABG pO2 110 H ABG pO2 ABG HCO3 ABG Base Excess ABG Hemoglobin Oxyhemoglobin Sodium Potassium Chloride Carbon Dioxide BUN Creatinine Glucose POC Glucose 121 H 133 H Lactic Acid Calcium Phosphorus Magnesium Direct Bilirubin AST ALT Alkaline Phosphatase Lactate Dehydrogenase Troponin T C-Reactive Protein Total Protein Albumin Prealbumin Triglycerides Cholesterol LDL Cholesterol Direct HDL Cholesterol Urine pH Urine WBC (Auto) Urine Creatinine Urine Total Protein Fluid Total Protein Vancomycin Trough Rheumatoid Factor Complement C4 Miscellaneous Test Crossmatch 10/16/16 10/17/16 10/17/16 20:48 04:24 04:24 WBC 21.4 H RBC 2.72 L Hgb 8.0 L Hct 25.2 L MCV MCH MCHC RDW 18.0 H Plt Count Lymph % (Auto) [place] % (Auto) Lymph # [place] # Baso # Seg Neutrophils % Seg Neuts % (Manual) Lymphocytes % (Manual) Monocytes % (Manual) Eosinophils % (Manual) Basophils % (Manual) Nucleated RBC % Seg Neutrophils # Seg Neutrophils # Man Lymphocytes # (Manual) Monocytes # (Manual) Eosinophils # (Manual) Basophils # (Manual) PT INR Fibrinogen dRVVT Confirm Interp Factor V Activity POC ABG pH 7.561 H POC ABG pCO2 24.4 L POC ABG pO2 77 L ABG pO2 ABG HCO3 ABG Base Excess ABG Hemoglobin Oxyhemoglobin Sodium 148 H Potassium Chloride Carbon Dioxide BUN 104 H Creatinine 3.0 H Glucose 149 H POC Glucose Lactic Acid Calcium Phosphorus Magnesium Direct Bilirubin AST ALT Alkaline Phosphatase 138 H Lactate Dehydrogenase Troponin T C-Reactive Protein Total Protein 6.2 L Albumin 1.5 L Prealbumin Triglycerides Cholesterol LDL Cholesterol Direct HDL Cholesterol Urine pH Urine WBC (Auto) Urine Creatinine Urine Total Protein Fluid Total Protein Vancomycin Trough Rheumatoid Factor Complement C4 Miscellaneous Test Crossmatch 10/17/16 10/17/16 10/17/16 06:02 12:17 17:14 WBC RBC Hgb Hct MCV MCH MCHC RDW Plt Count Lymph % (Auto) [place] % (Auto) Lymph # [place] # Baso # Seg Neutrophils % Seg Neuts % (Manual) Lymphocytes % (Manual) Monocytes % (Manual) Eosinophils % (Manual) Basophils % (Manual) Nucleated RBC % Seg Neutrophils # Seg Neutrophils # Man Lymphocytes # (Manual) Monocytes # (Manual) Eosinophils # (Manual) Basophils # (Manual) PT INR Fibrinogen dRVVT Confirm Interp Factor V Activity POC ABG pH POC ABG pCO2 POC ABG pO2 ABG pO2 ABG HCO3 ABG Base Excess ABG Hemoglobin Oxyhemoglobin Sodium Potassium Chloride Carbon Dioxide BUN Creatinine Glucose POC Glucose 170 H 167 H 126 H Lactic Acid Calcium Phosphorus Magnesium Direct Bilirubin AST ALT Alkaline Phosphatase Lactate Dehydrogenase Troponin T C-Reactive Protein Total Protein Albumin Prealbumin Triglycerides Cholesterol LDL Cholesterol Direct HDL Cholesterol Urine pH Urine WBC (Auto) Urine Creatinine Urine Total Protein Fluid Total Protein Vancomycin Trough Rheumatoid Factor Complement C4 Miscellaneous Test Crossmatch 10/17/16 10/18/16 10/18/16 23:17 04:00 04:00 WBC 20.7 H RBC 2.47 L Hgb 7.4 L Hct 22.9 L MCV MCH MCHC RDW 17.5 H Plt Count Lymph % (Auto) [place] % (Auto) Lymph # [place] # Baso # Seg Neutrophils % Seg Neuts % (Manual) Lymphocytes % (Manual) Monocytes % (Manual) Eosinophils % (Manual) Basophils % (Manual) Nucleated RBC % Seg Neutrophils # Seg Neutrophils # Man Lymphocytes # (Manual) Monocytes # (Manual) Eosinophils # (Manual) Basophils # (Manual) PT INR Fibrinogen dRVVT Confirm Interp Factor V Activity POC ABG pH POC ABG pCO2 POC ABG pO2 ABG pO2 ABG HCO3 ABG Base Excess ABG Hemoglobin Oxyhemoglobin Sodium 149 H Potassium Chloride 107.9 H Carbon Dioxide 20 L BUN 117 H Creatinine 3.2 H Glucose 119 H POC Glucose 121 H Lactic Acid Calcium Phosphorus Magnesium Direct Bilirubin AST ALT Alkaline Phosphatase Lactate Dehydrogenase Troponin T C-Reactive Protein Total Protein Albumin Prealbumin Triglycerides Cholesterol LDL Cholesterol Direct HDL Cholesterol Urine pH Urine WBC (Auto) Urine Creatinine Urine Total Protein Fluid Total Protein Vancomycin Trough Rheumatoid Factor Complement C4 Miscellaneous Test Crossmatch 10/18/16 10/18/16 10/18/16 05:23 10:46 17:30 WBC RBC Hgb Hct MCV MCH MCHC RDW Plt Count Lymph % (Auto) [place] % (Auto) Lymph # [place] # Baso # Seg Neutrophils % Seg Neuts % (Manual) Lymphocytes % (Manual) Monocytes % (Manual) Eosinophils % (Manual) Basophils % (Manual) Nucleated RBC % Seg Neutrophils # Seg Neutrophils # Man Lymphocytes # (Manual) Monocytes # (Manual) Eosinophils # (Manual) Basophils # (Manual) PT INR Fibrinogen dRVVT Confirm Interp Factor V Activity POC ABG pH POC ABG pCO2 POC ABG pO2 ABG pO2 ABG HCO3 ABG Base Excess ABG Hemoglobin Oxyhemoglobin Sodium Potassium Chloride Carbon Dioxide BUN Creatinine Glucose POC Glucose 119 H 155 H 124 H Lactic Acid Calcium Phosphorus Magnesium Direct Bilirubin AST ALT Alkaline Phosphatase Lactate Dehydrogenase Troponin T C-Reactive Protein Total Protein Albumin Prealbumin Triglycerides Cholesterol LDL Cholesterol Direct HDL Cholesterol Urine pH Urine WBC (Auto) Urine Creatinine Urine Total Protein Fluid Total Protein Vancomycin Trough Rheumatoid Factor Complement C4 Miscellaneous Test Crossmatch 10/19/16 10/19/16 10/19/16 04:00 04:00 05:25 WBC 17.4 H RBC 2.54 L Hgb 7.7 L Hct 23.6 L MCV MCH MCHC RDW 17.3 H Plt Count Lymph % (Auto) [place] % (Auto) Lymph # [place] # Baso # Seg Neutrophils % Seg Neuts % (Manual) Lymphocytes % (Manual) Monocytes % (Manual) Eosinophils % (Manual) Basophils % (Manual) Nucleated RBC % Seg Neutrophils # Seg Neutrophils # Man Lymphocytes # (Manual) Monocytes # (Manual) Eosinophils # (Manual) Basophils # (Manual) PT INR Fibrinogen dRVVT Confirm Interp Factor V Activity POC ABG pH POC ABG pCO2 POC ABG pO2 ABG pO2 ABG HCO3 ABG Base Excess ABG Hemoglobin Oxyhemoglobin Sodium Potassium Chloride Carbon Dioxide BUN 72 H Creatinine 2.1 H Glucose 116 H POC Glucose 119 H Lactic Acid Calcium Phosphorus Magnesium Direct Bilirubin AST ALT Alkaline Phosphatase Lactate Dehydrogenase Troponin T C-Reactive Protein Total Protein Albumin Prealbumin Triglycerides Cholesterol LDL Cholesterol Direct HDL Cholesterol Urine pH Urine WBC (Auto) Urine Creatinine Urine Total Protein Fluid Total Protein Vancomycin Trough Rheumatoid Factor Complement C4 Miscellaneous Test Crossmatch 10/19/16 10/19/16 10/20/16 11:46 23:59 06:00 WBC RBC Hgb Hct MCV MCH MCHC RDW Plt Count Lymph % (Auto) [place] % (Auto) Lymph # [place] # Baso # Seg Neutrophils % Seg Neuts % (Manual) Lymphocytes % (Manual) Monocytes % (Manual) Eosinophils % (Manual) Basophils % (Manual) Nucleated RBC % Seg Neutrophils # Seg Neutrophils # Man Lymphocytes # (Manual) Monocytes # (Manual) Eosinophils # (Manual) Basophils # (Manual) PT INR Fibrinogen dRVVT Confirm Interp Factor V Activity POC ABG pH POC ABG pCO2 POC ABG pO2 ABG pO2 ABG HCO3 ABG Base Excess ABG Hemoglobin Oxyhemoglobin Sodium Potassium Chloride Carbon Dioxide 17 L BUN 94 H Creatinine 2.7 H Glucose POC Glucose 116 H 117 H Lactic Acid Calcium Phosphorus Magnesium Direct Bilirubin AST ALT Alkaline Phosphatase Lactate Dehydrogenase Troponin T C-Reactive Protein Total Protein Albumin Prealbumin Triglycerides Cholesterol LDL Cholesterol Direct HDL Cholesterol Urine pH Urine WBC (Auto) Urine Creatinine Urine Total Protein Fluid Total Protein Vancomycin Trough Rheumatoid Factor Complement C4 Miscellaneous Test Crossmatch 10/20/16 10/20/16 10/20/16 06:00 11:49 16:00 WBC 19.7 H RBC 2.51 L Hgb 7.7 L Hct 23.5 L MCV MCH MCHC RDW 17.5 H Plt Count Lymph % (Auto) [place] % (Auto) Lymph # [place] # Baso # Seg Neutrophils % Seg Neuts % (Manual) Lymphocytes % (Manual) Monocytes % (Manual) Eosinophils % (Manual) Basophils % (Manual) Nucleated RBC % Seg Neutrophils # Seg Neutrophils # Man Lymphocytes # (Manual) Monocytes # (Manual) Eosinophils # (Manual) Basophils # (Manual) PT INR Fibrinogen dRVVT Confirm Interp Factor V Activity POC ABG pH POC ABG pCO2 POC ABG pO2 ABG pO2 ABG HCO3 ABG Base Excess ABG Hemoglobin Oxyhemoglobin Sodium Potassium Chloride Carbon Dioxide BUN Creatinine Glucose POC Glucose 117 H Lactic Acid Calcium Phosphorus Magnesium Direct Bilirubin AST ALT Alkaline Phosphatase Lactate Dehydrogenase Troponin T C-Reactive Protein Total Protein Albumin Prealbumin Triglycerides Cholesterol LDL Cholesterol Direct HDL Cholesterol Urine pH Urine WBC (Auto) Urine Creatinine Urine Total Protein Fluid Total Protein Vancomycin Trough Rheumatoid Factor Complement C4 Miscellaneous Test Flexitest 1 H Crossmatch 10/20/16 10/20/16 10/21/16 18:36 23:39 04:00 WBC RBC Hgb Hct MCV MCH MCHC RDW Plt Count Lymph % (Auto) [place] % (Auto) Lymph # [place] # Baso # Seg Neutrophils % Seg Neuts % (Manual) Lymphocytes % (Manual) Monocytes % (Manual) Eosinophils % (Manual) Basophils % (Manual) Nucleated RBC % Seg Neutrophils # Seg Neutrophils # Man Lymphocytes # (Manual) Monocytes # (Manual) Eosinophils # (Manual) Basophils # (Manual) PT INR Fibrinogen dRVVT Confirm Interp Factor V Activity POC ABG pH POC ABG pCO2 POC ABG pO2 ABG pO2 ABG HCO3 ABG Base Excess ABG Hemoglobin Oxyhemoglobin Sodium Potassium 5.4 H D Chloride Carbon Dioxide 15 L BUN 110 H Creatinine 3.0 H Glucose POC Glucose 127 H 114 H Lactic Acid Calcium Phosphorus Magnesium Direct Bilirubin AST ALT Alkaline Phosphatase Lactate Dehydrogenase Troponin T C-Reactive Protein Total Protein Albumin Prealbumin Triglycerides Cholesterol LDL Cholesterol Direct HDL Cholesterol Urine pH Urine WBC (Auto) Urine Creatinine Urine Total Protein Fluid Total Protein Vancomycin Trough Rheumatoid Factor Complement C4 Miscellaneous Test Crossmatch 10/21/16 10/21/16 10/22/16 05:54 23:46 05:18 WBC RBC Hgb Hct MCV MCH MCHC RDW Plt Count Lymph % (Auto) [place] % (Auto) Lymph # [place] # Baso # Seg Neutrophils % Seg Neuts % (Manual) Lymphocytes % (Manual) Monocytes % (Manual) Eosinophils % (Manual) Basophils % (Manual) Nucleated RBC % Seg Neutrophils # Seg Neutrophils # Man Lymphocytes # (Manual) Monocytes # (Manual) Eosinophils # (Manual) Basophils # (Manual) PT INR Fibrinogen dRVVT Confirm Interp Factor V Activity POC ABG pH POC ABG pCO2 POC ABG pO2 ABG pO2 ABG HCO3 ABG Base Excess ABG Hemoglobin Oxyhemoglobin Sodium Potassium Chloride Carbon Dioxide BUN Creatinine Glucose POC Glucose 119 H 108 H 109 H Lactic Acid Calcium Phosphorus Magnesium Direct Bilirubin AST ALT Alkaline Phosphatase Lactate Dehydrogenase Troponin T C-Reactive Protein Total Protein Albumin Prealbumin Triglycerides Cholesterol LDL Cholesterol Direct HDL Cholesterol Urine pH Urine WBC (Auto) Urine Creatinine Urine Total Protein Fluid Total Protein Vancomycin Trough Rheumatoid Factor Complement C4 Miscellaneous Test Crossmatch 10/22/16 10/22/16 10/22/16 06:40 06:40 06:40 WBC 14.0 H RBC 2.03 L Hgb 7.0 L Hct 20.5 L MCV 98 H MCH 34 H MCHC 35 H RDW 17.8 H Plt Count Lymph % (Auto) [place] % (Auto) 9.9 H Lymph # [place] # 1.4 H Baso # 0.2 H Seg Neutrophils % 72.0 H Seg Neuts % (Manual) Lymphocytes % (Manual) Monocytes % (Manual) Eosinophils % (Manual) Basophils % (Manual) Nucleated RBC % Seg Neutrophils # 10.0 H Seg Neutrophils # Man Lymphocytes # (Manual) Monocytes # (Manual) Eosinophils # (Manual) Basophils # (Manual) PT INR Fibrinogen dRVVT Confirm Interp Factor V Activity POC ABG pH POC ABG pCO2 POC ABG pO2 ABG pO2 ABG HCO3 ABG Base Excess ABG Hemoglobin Oxyhemoglobin Sodium 130 L D Potassium Chloride 92.4 L Carbon Dioxide 20 L BUN 50 H Creatinine 1.6 H Glucose 589 H* POC Glucose Lactic Acid Calcium 7.8 L D Phosphorus Magnesium 1.60 L Direct Bilirubin AST ALT Alkaline Phosphatase Lactate Dehydrogenase Troponin T C-Reactive Protein Total Protein Albumin Prealbumin Triglycerides Cholesterol LDL Cholesterol Direct HDL Cholesterol Urine pH Urine WBC (Auto) Urine Creatinine Urine Total Protein Fluid Total Protein Vancomycin Trough Rheumatoid Factor Complement C4 Miscellaneous Test Crossmatch 10/22/16 10/22/16 10/22/16 11:39 16:44 23:36 WBC RBC Hgb Hct MCV MCH MCHC RDW Plt Count Lymph % (Auto) [place] % (Auto) Lymph # [place] # Baso # Seg Neutrophils % Seg Neuts % (Manual) Lymphocytes % (Manual) Monocytes % (Manual) Eosinophils % (Manual) Basophils % (Manual) Nucleated RBC % Seg Neutrophils # Seg Neutrophils # Man Lymphocytes # (Manual) Monocytes # (Manual) Eosinophils # (Manual) Basophils # (Manual) PT INR Fibrinogen dRVVT Confirm Interp Factor V Activity POC ABG pH POC ABG pCO2 POC ABG pO2 ABG pO2 ABG HCO3 ABG Base Excess ABG Hemoglobin Oxyhemoglobin Sodium Potassium Chloride Carbon Dioxide BUN Creatinine Glucose POC Glucose 142 H 163 H 123 H Lactic Acid Calcium Phosphorus Magnesium Direct Bilirubin AST ALT Alkaline Phosphatase Lactate Dehydrogenase Troponin T C-Reactive Protein Total Protein Albumin Prealbumin Triglycerides Cholesterol LDL Cholesterol Direct HDL Cholesterol Urine pH Urine WBC (Auto) Urine Creatinine Urine Total Protein Fluid Total Protein Vancomycin Trough Rheumatoid Factor Complement C4 Miscellaneous Test Crossmatch 10/23/16 10/23/16 10/23/16 04:58 06:00 12:12 WBC RBC Hgb Hct MCV MCH MCHC RDW Plt Count Lymph % (Auto) [place] % (Auto) Lymph # [place] # Baso # Seg Neutrophils % Seg Neuts % (Manual) Lymphocytes % (Manual) Monocytes % (Manual) Eosinophils % (Manual) Basophils % (Manual) Nucleated RBC % Seg Neutrophils # Seg Neutrophils # Man Lymphocytes # (Manual) Monocytes # (Manual) Eosinophils # (Manual) Basophils # (Manual) PT INR Fibrinogen dRVVT Confirm Interp Factor V Activity POC ABG pH POC ABG pCO2 POC ABG pO2 ABG pO2 ABG HCO3 ABG Base Excess ABG Hemoglobin Oxyhemoglobin Sodium 133 L Potassium 3.5 L Chloride 96.1 L Carbon Dioxide 18 L BUN 76 H Creatinine 2.1 H Glucose POC Glucose 133 H 138 H Lactic Acid Calcium 8.3 L Phosphorus Magnesium Direct Bilirubin AST ALT Alkaline Phosphatase Lactate Dehydrogenase Troponin T C-Reactive Protein Total Protein Albumin Prealbumin Triglycerides Cholesterol LDL Cholesterol Direct HDL Cholesterol Urine pH Urine WBC (Auto) Urine Creatinine Urine Total Protein Fluid Total Protein Vancomycin Trough Rheumatoid Factor Complement C4 Miscellaneous Test Crossmatch 10/23/16 10/23/16 10/24/16 16:53 23:37 04:00 WBC RBC Hgb Hct MCV MCH MCHC RDW Plt Count Lymph % (Auto) [place] % (Auto) Lymph # [place] # Baso # Seg Neutrophils % Seg Neuts % (Manual) Lymphocytes % (Manual) Monocytes % (Manual) Eosinophils % (Manual) Basophils % (Manual) Nucleated RBC % Seg Neutrophils # Seg Neutrophils # Man Lymphocytes # (Manual) Monocytes # (Manual) Eosinophils # (Manual) Basophils # (Manual) PT INR Fibrinogen dRVVT Confirm Interp Factor V Activity POC ABG pH POC ABG pCO2 POC ABG pO2 ABG pO2 ABG HCO3 ABG Base Excess ABG Hemoglobin Oxyhemoglobin Sodium 131 L Potassium Chloride 94.5 L Carbon Dioxide 19 L BUN 97 H Creatinine 2.6 H Glucose 110 H POC Glucose 125 H 123 H Lactic Acid Calcium 8.3 L Phosphorus Magnesium Direct Bilirubin AST ALT Alkaline Phosphatase Lactate Dehydrogenase Troponin T C-Reactive Protein Total Protein Albumin Prealbumin Triglycerides Cholesterol LDL Cholesterol Direct HDL Cholesterol Urine pH Urine WBC (Auto) Urine Creatinine Urine Total Protein Fluid Total Protein Vancomycin Trough Rheumatoid Factor Complement C4 Miscellaneous Test Crossmatch 10/24/16 10/24/16 10/24/16 07:49 11:39 17:52 WBC RBC Hgb 6.0 L Hct 19.7 L* MCV MCH MCHC RDW Plt Count Lymph % (Auto) [place] % (Auto) Lymph # [place] # Baso # Seg Neutrophils % Seg Neuts % (Manual) Lymphocytes % (Manual) Monocytes % (Manual) Eosinophils % (Manual) Basophils % (Manual) Nucleated RBC % Seg Neutrophils # Seg Neutrophils # Man Lymphocytes # (Manual) Monocytes # (Manual) Eosinophils # (Manual) Basophils # (Manual) PT INR Fibrinogen dRVVT Confirm Interp Factor V Activity POC ABG pH POC ABG pCO2 POC ABG pO2 ABG pO2 ABG HCO3 ABG Base Excess ABG Hemoglobin Oxyhemoglobin Sodium Potassium Chloride Carbon Dioxide BUN Creatinine Glucose POC Glucose 106 H 158 H Lactic Acid Calcium Phosphorus Magnesium Direct Bilirubin AST ALT Alkaline Phosphatase Lactate Dehydrogenase Troponin T C-Reactive Protein Total Protein Albumin Prealbumin Triglycerides Cholesterol LDL Cholesterol Direct HDL Cholesterol Urine pH Urine WBC (Auto) Urine Creatinine Urine Total Protein Fluid Total Protein Vancomycin Trough Rheumatoid Factor Complement C4 Miscellaneous Test Crossmatch 10/24/16 10/24/16 10/24/16 20:00 22:27 Unknown WBC RBC Hgb 9.4 L D Hct 27.5 L D MCV MCH MCHC RDW Plt Count Lymph % (Auto) [place] % (Auto) Lymph # [place] # Baso # Seg Neutrophils % Seg Neuts % (Manual) Lymphocytes % (Manual) Monocytes % (Manual) Eosinophils % (Manual) Basophils % (Manual) Nucleated RBC % Seg Neutrophils # Seg Neutrophils # Man Lymphocytes # (Manual) Monocytes # (Manual) Eosinophils # (Manual) Basophils # (Manual) PT INR Fibrinogen dRVVT Confirm Interp Factor V Activity POC ABG pH POC ABG pCO2 POC ABG pO2 ABG pO2 ABG HCO3 ABG Base Excess ABG Hemoglobin Oxyhemoglobin Sodium Potassium Chloride Carbon Dioxide BUN Creatinine Glucose POC Glucose 125 H Lactic Acid Calcium Phosphorus Magnesium Direct Bilirubin AST ALT Alkaline Phosphatase Lactate Dehydrogenase Troponin T C-Reactive Protein Total Protein Albumin Prealbumin Triglycerides Cholesterol LDL Cholesterol Direct HDL Cholesterol Urine pH Urine WBC (Auto) Urine Creatinine Urine Total Protein Fluid Total Protein Vancomycin Trough Rheumatoid Factor Complement C4 Miscellaneous Test Crossmatch See Detail 10/25/16 10/25/16 10/25/16 04:00 04:00 04:00 WBC 14.2 H RBC 2.98 L Hgb 9.0 L Hct 26.2 L MCV MCH MCHC RDW 16.6 H Plt Count Lymph % (Auto) [place] % (Auto) 10.7 H Lymph # [place] # 1.5 H Baso # Seg Neutrophils % 73.6 H Seg Neuts % (Manual) Lymphocytes % (Manual) Monocytes % (Manual) Eosinophils % (Manual) Basophils % (Manual) Nucleated RBC % Seg Neutrophils # 10.5 H Seg Neutrophils # Man Lymphocytes # (Manual) Monocytes # (Manual) Eosinophils # (Manual) Basophils # (Manual) PT INR Fibrinogen dRVVT Confirm Interp Factor V Activity POC ABG pH POC ABG pCO2 POC ABG pO2 ABG pO2 ABG HCO3 ABG Base Excess ABG Hemoglobin Oxyhemoglobin Sodium 132 L Potassium Chloride 94.7 L Carbon Dioxide BUN 51 H Creatinine 1.6 H Glucose 130 H POC Glucose Lactic Acid Calcium 8.3 L Phosphorus 1.60 L D Magnesium Direct Bilirubin AST ALT Alkaline Phosphatase Lactate Dehydrogenase Troponin T C-Reactive Protein Total Protein Albumin Prealbumin Triglycerides Cholesterol LDL Cholesterol Direct HDL Cholesterol Urine pH Urine WBC (Auto) Urine Creatinine Urine Total Protein Fluid Total Protein Vancomycin Trough Rheumatoid Factor Complement C4 Miscellaneous Test Crossmatch 10/25/16 10/25/16 10/25/16 04:32 11:48 17:22 WBC RBC Hgb Hct MCV MCH MCHC RDW Plt Count Lymph % (Auto) [place] % (Auto) Lymph # [place] # Baso # Seg Neutrophils % Seg Neuts % (Manual) Lymphocytes % (Manual) Monocytes % (Manual) Eosinophils % (Manual) Basophils % (Manual) Nucleated RBC % Seg Neutrophils # Seg Neutrophils # Man Lymphocytes # (Manual) Monocytes # (Manual) Eosinophils # (Manual) Basophils # (Manual) PT INR Fibrinogen dRVVT Confirm Interp Factor V Activity POC ABG pH POC ABG pCO2 POC ABG pO2 ABG pO2 ABG HCO3 ABG Base Excess ABG Hemoglobin Oxyhemoglobin Sodium Potassium Chloride Carbon Dioxide BUN Creatinine Glucose POC Glucose 124 H 171 H 120 H Lactic Acid Calcium Phosphorus Magnesium Direct Bilirubin AST ALT Alkaline Phosphatase Lactate Dehydrogenase Troponin T C-Reactive Protein Total Protein Albumin Prealbumin Triglycerides Cholesterol LDL Cholesterol Direct HDL Cholesterol Urine pH Urine WBC (Auto) Urine Creatinine Urine Total Protein Fluid Total Protein Vancomycin Trough Rheumatoid Factor Complement C4 Miscellaneous Test Crossmatch 10/26/16 10/26/16 10/26/16 04:54 07:06 07:06 WBC 16.9 H RBC 3.06 L Hgb 9.1 L Hct 26.9 L MCV MCH MCHC RDW 16.9 H Plt Count Lymph % (Auto) [place] % (Auto) Lymph # [place] # Baso # Seg Neutrophils % Seg Neuts % (Manual) 71.0 H Lymphocytes % (Manual) 5.0 L Monocytes % (Manual) 12.0 H Eosinophils % (Manual) Basophils % (Manual) Nucleated RBC % Seg Neutrophils # Seg Neutrophils # Man 12.0 H Lymphocytes # (Manual) 0.8 L Monocytes # (Manual) 2.0 H Eosinophils # (Manual) Basophils # (Manual) PT INR Fibrinogen dRVVT Confirm Interp Factor V Activity POC ABG pH POC ABG pCO2 POC ABG pO2 ABG pO2 ABG HCO3 ABG Base Excess ABG Hemoglobin Oxyhemoglobin Sodium 135 L Potassium Chloride 97.1 L Carbon Dioxide BUN 73 H Creatinine 2.2 H Glucose 117 H POC Glucose 123 H Lactic Acid Calcium Phosphorus 1.70 L Magnesium Direct Bilirubin AST ALT Alkaline Phosphatase Lactate Dehydrogenase Troponin T C-Reactive Protein Total Protein Albumin Prealbumin Triglycerides Cholesterol LDL Cholesterol Direct HDL Cholesterol Urine pH Urine WBC (Auto) Urine Creatinine Urine Total Protein Fluid Total Protein Vancomycin Trough Rheumatoid Factor Complement C4 Miscellaneous Test Crossmatch 10/26/16 10/26/16 10/26/16 12:12 17:29 23:42 WBC RBC Hgb Hct MCV MCH MCHC RDW Plt Count Lymph % (Auto) [place] % (Auto) Lymph # [place] # Baso # Seg Neutrophils % Seg Neuts % (Manual) Lymphocytes % (Manual) Monocytes % (Manual) Eosinophils % (Manual) Basophils % (Manual) Nucleated RBC % Seg Neutrophils # Seg Neutrophils # Man Lymphocytes # (Manual) Monocytes # (Manual) Eosinophils # (Manual) Basophils # (Manual) PT INR Fibrinogen dRVVT Confirm Interp Factor V Activity POC ABG pH POC ABG pCO2 POC ABG pO2 ABG pO2 ABG HCO3 ABG Base Excess ABG Hemoglobin Oxyhemoglobin Sodium Potassium Chloride Carbon Dioxide BUN Creatinine Glucose POC Glucose 126 H 161 H 118 H Lactic Acid Calcium Phosphorus Magnesium Direct Bilirubin AST ALT Alkaline Phosphatase Lactate Dehydrogenase Troponin T C-Reactive Protein Total Protein Albumin Prealbumin Triglycerides Cholesterol LDL Cholesterol Direct HDL Cholesterol Urine pH Urine WBC (Auto) Urine Creatinine Urine Total Protein Fluid Total Protein Vancomycin Trough Rheumatoid Factor Complement C4 Miscellaneous Test Crossmatch 10/27/16 10/27/16 10/27/16 05:03 06:30 06:30 WBC 13.9 H RBC 3.09 L Hgb 9.2 L Hct 27.5 L MCV MCH MCHC RDW 17.0 H Plt Count Lymph % (Auto) [place] % (Auto) Lymph # [place] # Baso # Seg Neutrophils % Seg Neuts % (Manual) 78.0 H Lymphocytes % (Manual) Monocytes % (Manual) Eosinophils % (Manual) Basophils % (Manual) Nucleated RBC % 2.0 H Seg Neutrophils # Seg Neutrophils # Man 10.8 H Lymphocytes # (Manual) Monocytes # (Manual) 1.0 H Eosinophils # (Manual) Basophils # (Manual) PT INR Fibrinogen dRVVT Confirm Interp Factor V Activity POC ABG pH POC ABG pCO2 POC ABG pO2 ABG pO2 ABG HCO3 ABG Base Excess ABG Hemoglobin Oxyhemoglobin Sodium Potassium Chloride Carbon Dioxide BUN 40 H Creatinine 1.5 H Glucose 135 H POC Glucose 107 H Lactic Acid Calcium 8.3 L Phosphorus 1.30 L D Magnesium Direct Bilirubin AST ALT Alkaline Phosphatase Lactate Dehydrogenase Troponin T C-Reactive Protein Total Protein Albumin Prealbumin Triglycerides Cholesterol LDL Cholesterol Direct HDL Cholesterol Urine pH Urine WBC (Auto) Urine Creatinine Urine Total Protein Fluid Total Protein Vancomycin Trough Rheumatoid Factor Complement C4 Miscellaneous Test Crossmatch 10/27/16 10/27/16 10/27/16 13:27 18:07 23:40 WBC RBC Hgb Hct MCV MCH MCHC RDW Plt Count Lymph % (Auto) [place] % (Auto) Lymph # [place] # Baso # Seg Neutrophils % Seg Neuts % (Manual) Lymphocytes % (Manual) Monocytes % (Manual) Eosinophils % (Manual) Basophils % (Manual) Nucleated RBC % Seg Neutrophils # Seg Neutrophils # Man Lymphocytes # (Manual) Monocytes # (Manual) Eosinophils # (Manual) Basophils # (Manual) PT INR Fibrinogen dRVVT Confirm Interp Factor V Activity POC ABG pH POC ABG pCO2 POC ABG pO2 ABG pO2 ABG HCO3 ABG Base Excess ABG Hemoglobin Oxyhemoglobin Sodium Potassium Chloride Carbon Dioxide BUN Creatinine Glucose POC Glucose 117 H 121 H 118 H Lactic Acid Calcium Phosphorus Magnesium Direct Bilirubin AST ALT Alkaline Phosphatase Lactate Dehydrogenase Troponin T C-Reactive Protein Total Protein Albumin Prealbumin Triglycerides Cholesterol LDL Cholesterol Direct HDL Cholesterol Urine pH Urine WBC (Auto) Urine Creatinine Urine Total Protein Fluid Total Protein Vancomycin Trough Rheumatoid Factor Complement C4 Miscellaneous Test Crossmatch 10/28/16 10/28/16 10/28/16 05:48 06:45 06:45 WBC 14.7 H RBC 3.05 L Hgb 9.0 L Hct 26.9 L MCV MCH MCHC RDW 16.8 H Plt Count Lymph % (Auto) 8.2 L [place] % (Auto) 8.4 H Lymph # [place] # 1.2 H Baso # Seg Neutrophils % 81.9 H Seg Neuts % (Manual) Lymphocytes % (Manual) Monocytes % (Manual) Eosinophils % (Manual) Basophils % (Manual) Nucleated RBC % Seg Neutrophils # 12.1 H Seg Neutrophils # Man Lymphocytes # (Manual) Monocytes # (Manual) Eosinophils # (Manual) Basophils # (Manual) PT INR Fibrinogen dRVVT Confirm Interp Factor V Activity POC ABG pH POC ABG pCO2 POC ABG pO2 ABG pO2 ABG HCO3 ABG Base Excess ABG Hemoglobin Oxyhemoglobin Sodium Potassium Chloride Carbon Dioxide BUN 60 H Creatinine 1.9 H Glucose 120 H POC Glucose 114 H Lactic Acid Calcium Phosphorus Magnesium Direct Bilirubin AST ALT Alkaline Phosphatase Lactate Dehydrogenase Troponin T C-Reactive Protein Total Protein Albumin Prealbumin Triglycerides Cholesterol LDL Cholesterol Direct HDL Cholesterol Urine pH Urine WBC (Auto) Urine Creatinine Urine Total Protein Fluid Total Protein Vancomycin Trough Rheumatoid Factor Complement C4 Miscellaneous Test Crossmatch 10/28/16 10/28/16 10/29/16 17:08 23:50 05:10 WBC RBC Hgb Hct MCV MCH MCHC RDW Plt Count Lymph % (Auto) [place] % (Auto) Lymph # [place] # Baso # Seg Neutrophils % Seg Neuts % (Manual) Lymphocytes % (Manual) Monocytes % (Manual) Eosinophils % (Manual) Basophils % (Manual) Nucleated RBC % Seg Neutrophils # Seg Neutrophils # Man Lymphocytes # (Manual) Monocytes # (Manual) Eosinophils # (Manual) Basophils # (Manual) PT INR Fibrinogen dRVVT Confirm Interp Factor V Activity POC ABG pH POC ABG pCO2 POC ABG pO2 ABG pO2 ABG HCO3 ABG Base Excess ABG Hemoglobin Oxyhemoglobin Sodium Potassium Chloride Carbon Dioxide BUN Creatinine Glucose POC Glucose 109 H 110 H 124 H Lactic Acid Calcium Phosphorus Magnesium Direct Bilirubin AST ALT Alkaline Phosphatase Lactate Dehydrogenase Troponin T C-Reactive Protein Total Protein Albumin Prealbumin Triglycerides Cholesterol LDL Cholesterol Direct HDL Cholesterol Urine pH Urine WBC (Auto) Urine Creatinine Urine Total Protein Fluid Total Protein Vancomycin Trough Rheumatoid Factor Complement C4 Miscellaneous Test Crossmatch 10/29/16 10/29/16 10/29/16 07:45 07:45 12:19 WBC 14.7 H RBC 3.15 L Hgb 9.3 L Hct 28.9 L MCV MCH MCHC RDW 17.0 H Plt Count Lymph % (Auto) 11.9 L [place] % (Auto) 8.6 H Lymph # [place] # 1.3 H Baso # Seg Neutrophils % 78.1 H Seg Neuts % (Manual) Lymphocytes % (Manual) Monocytes % (Manual) Eosinophils % (Manual) Basophils % (Manual) Nucleated RBC % Seg Neutrophils # 11.4 H Seg Neutrophils # Man Lymphocytes # (Manual) Monocytes # (Manual) Eosinophils # (Manual) Basophils # (Manual) PT INR Fibrinogen dRVVT Confirm Interp Factor V Activity POC ABG pH POC ABG pCO2 POC ABG pO2 ABG pO2 ABG HCO3 ABG Base Excess ABG Hemoglobin Oxyhemoglobin Sodium Potassium 5.1 H Chloride Carbon Dioxide 19 L BUN 78 H Creatinine 2.2 H Glucose 116 H POC Glucose 118 H Lactic Acid Calcium Phosphorus Magnesium Direct Bilirubin AST ALT Alkaline Phosphatase Lactate Dehydrogenase Troponin T C-Reactive Protein Total Protein Albumin Prealbumin Triglycerides Cholesterol LDL Cholesterol Direct HDL Cholesterol Urine pH Urine WBC (Auto) Urine Creatinine Urine Total Protein Fluid Total Protein Vancomycin Trough Rheumatoid Factor Complement C4 Miscellaneous Test Crossmatch 10/29/16 10/30/16 10/30/16 17:49 01:52 03:28 WBC RBC Hgb Hct MCV MCH MCHC RDW Plt Count Lymph % (Auto) [place] % (Auto) Lymph # [place] # Baso # Seg Neutrophils % Seg Neuts % (Manual) Lymphocytes % (Manual) Monocytes % (Manual) Eosinophils % (Manual) Basophils % (Manual) Nucleated RBC % Seg Neutrophils # Seg Neutrophils # Man Lymphocytes # (Manual) Monocytes # (Manual) Eosinophils # (Manual) Basophils # (Manual) PT INR Fibrinogen dRVVT Confirm Interp Factor V Activity POC ABG pH POC ABG pCO2 POC ABG pO2 ABG pO2 ABG HCO3 ABG Base Excess ABG Hemoglobin Oxyhemoglobin Sodium Potassium 5.4 H Chloride 97.5 L Carbon Dioxide 19 L BUN 90 H Creatinine 2.5 H Glucose POC Glucose 120 H 129 H Lactic Acid Calcium Phosphorus 5.20 H Magnesium Direct Bilirubin AST ALT Alkaline Phosphatase Lactate Dehydrogenase Troponin T C-Reactive Protein Total Protein Albumin Prealbumin Triglycerides Cholesterol LDL Cholesterol Direct HDL Cholesterol Urine pH Urine WBC (Auto) Urine Creatinine Urine Total Protein Fluid Total Protein Vancomycin Trough Rheumatoid Factor Complement C4 Miscellaneous Test Crossmatch 10/30/16 10/30/16 10/30/16 03:28 08:19 08:19 WBC 11.6 H 15.9 H RBC 2.75 L 2.82 L Hgb 7.9 L 8.3 L Hct 24.2 L 25.2 L MCV MCH MCHC RDW 16.7 H 17.2 H Plt Count Lymph % (Auto) [place] % (Auto) 9.8 H Lymph # [place] # 1.1 H Baso # Seg Neutrophils % 74.2 H Seg Neuts % (Manual) Lymphocytes % (Manual) Monocytes % (Manual) Eosinophils % (Manual) Basophils % (Manual) Nucleated RBC % Seg Neutrophils # 8.6 H Seg Neutrophils # Man Lymphocytes # (Manual) Monocytes # (Manual) Eosinophils # (Manual) Basophils # (Manual) PT INR Fibrinogen dRVVT Confirm Interp Factor V Activity POC ABG pH POC ABG pCO2 POC ABG pO2 ABG pO2 ABG HCO3 ABG Base Excess ABG Hemoglobin Oxyhemoglobin Sodium Potassium 5.3 H Chloride 97.4 L Carbon Dioxide 19 L BUN 93 H Creatinine 2.6 H Glucose POC Glucose Lactic Acid Calcium Phosphorus Magnesium Direct Bilirubin AST ALT Alkaline Phosphatase Lactate Dehydrogenase Troponin T C-Reactive Protein Total Protein Albumin Prealbumin Triglycerides Cholesterol LDL Cholesterol Direct HDL Cholesterol Urine pH Urine WBC (Auto) Urine Creatinine Urine Total Protein Fluid Total Protein Vancomycin Trough Rheumatoid Factor Complement C4 Miscellaneous Test Crossmatch 10/30/16 10/30/16 10/31/16 17:11 23:56 00:40 WBC RBC Hgb Hct MCV MCH MCHC RDW Plt Count Lymph % (Auto) [place] % (Auto) Lymph # [place] # Baso # Seg Neutrophils % Seg Neuts % (Manual) Lymphocytes % (Manual) Monocytes % (Manual) Eosinophils % (Manual) Basophils % (Manual) Nucleated RBC % Seg Neutrophils # Seg Neutrophils # Man Lymphocytes # (Manual) Monocytes # (Manual) Eosinophils # (Manual) Basophils # (Manual) PT INR Fibrinogen dRVVT Confirm Interp Factor V Activity POC ABG pH POC ABG pCO2 POC ABG pO2 ABG pO2 ABG HCO3 ABG Base Excess ABG Hemoglobin Oxyhemoglobin Sodium Potassium Chloride Carbon Dioxide BUN Creatinine Glucose POC Glucose 106 H 117 H 120 H Lactic Acid Calcium Phosphorus Magnesium Direct Bilirubin AST ALT Alkaline Phosphatase Lactate Dehydrogenase Troponin T C-Reactive Protein Total Protein Albumin Prealbumin Triglycerides Cholesterol LDL Cholesterol Direct HDL Cholesterol Urine pH Urine WBC (Auto) Urine Creatinine Urine Total Protein Fluid Total Protein Vancomycin Trough Rheumatoid Factor Complement C4 Miscellaneous Test Crossmatch 10/31/16 10/31/16 10/31/16 05:43 07:15 07:15 WBC 12.1 H RBC 2.63 L Hgb 7.7 L Hct 23.3 L MCV MCH MCHC RDW 16.7 H Plt Count Lymph % (Auto) 11.7 L [place] % (Auto) 7.7 H Lymph # [place] # 0.9 H Baso # Seg Neutrophils % 78.0 H Seg Neuts % (Manual) Lymphocytes % (Manual) Monocytes % (Manual) Eosinophils % (Manual) Basophils % (Manual) Nucleated RBC % Seg Neutrophils # 9.4 H Seg Neutrophils # Man Lymphocytes # (Manual) Monocytes # (Manual) Eosinophils # (Manual) Basophils # (Manual) PT INR Fibrinogen dRVVT Confirm Interp Factor V Activity POC ABG pH POC ABG pCO2 POC ABG pO2 ABG pO2 ABG HCO3 ABG Base Excess ABG Hemoglobin Oxyhemoglobin Sodium Potassium Chloride 96.4 L Carbon Dioxide 21 L BUN 99 H Creatinine 2.6 H Glucose 144 H POC Glucose 125 H Lactic Acid Calcium Phosphorus 4.80 H Magnesium Direct Bilirubin AST ALT Alkaline Phosphatase Lactate Dehydrogenase Troponin T C-Reactive Protein Total Protein Albumin Prealbumin Triglycerides Cholesterol LDL Cholesterol Direct HDL Cholesterol Urine pH Urine WBC (Auto) Urine Creatinine Urine Total Protein Fluid Total Protein Vancomycin Trough Rheumatoid Factor Complement C4 Miscellaneous Test Crossmatch 10/31/16 10/31/16 11/01/16 11:46 18:34 00:20 WBC RBC Hgb Hct MCV MCH MCHC RDW Plt Count Lymph % (Auto) [place] % (Auto) Lymph # [place] # Baso # Seg Neutrophils % Seg Neuts % (Manual) Lymphocytes % (Manual) Monocytes % (Manual) Eosinophils % (Manual) Basophils % (Manual) Nucleated RBC % Seg Neutrophils # Seg Neutrophils # Man Lymphocytes # (Manual) Monocytes # (Manual) Eosinophils # (Manual) Basophils # (Manual) PT INR Fibrinogen dRVVT Confirm Interp Factor V Activity POC ABG pH POC ABG pCO2 POC ABG pO2 ABG pO2 ABG HCO3 ABG Base Excess ABG Hemoglobin Oxyhemoglobin Sodium Potassium Chloride Carbon Dioxide BUN Creatinine Glucose POC Glucose 159 H 140 H 132 H Lactic Acid Calcium Phosphorus Magnesium Direct Bilirubin AST ALT Alkaline Phosphatase Lactate Dehydrogenase Troponin T C-Reactive Protein Total Protein Albumin Prealbumin Triglycerides Cholesterol LDL Cholesterol Direct HDL Cholesterol Urine pH Urine WBC (Auto) Urine Creatinine Urine Total Protein Fluid Total Protein Vancomycin Trough Rheumatoid Factor Complement C4 Miscellaneous Test Crossmatch 11/01/16 11/01/16 11/01/16 04:55 04:55 06:11 WBC 11.2 H RBC 2.68 L Hgb 7.5 L Hct 23.7 L MCV MCH MCHC RDW 16.1 H Plt Count Lymph % (Auto) [place] % (Auto) 9.8 H Lymph # [place] # 1.1 H Baso # Seg Neutrophils % 70.8 H Seg Neuts % (Manual) Lymphocytes % (Manual) Monocytes % (Manual) Eosinophils % (Manual) Basophils % (Manual) Nucleated RBC % Seg Neutrophils # 7.9 H Seg Neutrophils # Man Lymphocytes # (Manual) Monocytes # (Manual) Eosinophils # (Manual) Basophils # (Manual) PT INR Fibrinogen dRVVT Confirm Interp Factor V Activity POC ABG pH POC ABG pCO2 POC ABG pO2 ABG pO2 ABG HCO3 ABG Base Excess ABG Hemoglobin Oxyhemoglobin Sodium Potassium 3.3 L D Chloride Carbon Dioxide BUN 61 H Creatinine 1.9 H Glucose 114 H POC Glucose 115 H Lactic Acid Calcium Phosphorus 1.80 L D Magnesium Direct Bilirubin AST ALT Alkaline Phosphatase Lactate Dehydrogenase Troponin T C-Reactive Protein Total Protein Albumin Prealbumin Triglycerides Cholesterol LDL Cholesterol Direct HDL Cholesterol Urine pH Urine WBC (Auto) Urine Creatinine Urine Total Protein Fluid Total Protein Vancomycin Trough Rheumatoid Factor Complement C4 Miscellaneous Test Crossmatch 11/01/16 11/01/16 11/01/16 12:29 18:23 23:58 WBC RBC Hgb Hct MCV MCH MCHC RDW Plt Count Lymph % (Auto) [place] % (Auto) Lymph # [place] # Baso # Seg Neutrophils % Seg Neuts % (Manual) Lymphocytes % (Manual) Monocytes % (Manual) Eosinophils % (Manual) Basophils % (Manual) Nucleated RBC % Seg Neutrophils # Seg Neutrophils # Man Lymphocytes # (Manual) Monocytes # (Manual) Eosinophils # (Manual) Basophils # (Manual) PT INR Fibrinogen dRVVT Confirm Interp Factor V Activity POC ABG pH POC ABG pCO2 POC ABG pO2 ABG pO2 ABG HCO3 ABG Base Excess ABG Hemoglobin Oxyhemoglobin Sodium Potassium Chloride Carbon Dioxide BUN Creatinine Glucose POC Glucose 142 H 143 H 128 H Lactic Acid Calcium Phosphorus Magnesium Direct Bilirubin AST ALT Alkaline Phosphatase Lactate Dehydrogenase Troponin T C-Reactive Protein Total Protein Albumin Prealbumin Triglycerides Cholesterol LDL Cholesterol Direct HDL Cholesterol Urine pH Urine WBC (Auto) Urine Creatinine Urine Total Protein Fluid Total Protein Vancomycin Trough Rheumatoid Factor Complement C4 Miscellaneous Test Crossmatch 11/02/16 11/02/16 11/02/16 04:16 05:29 11:58 WBC RBC Hgb Hct MCV MCH MCHC RDW Plt Count Lymph % (Auto) [place] % (Auto) Lymph # [place] # Baso # Seg Neutrophils % Seg Neuts % (Manual) Lymphocytes % (Manual) Monocytes % (Manual) Eosinophils % (Manual) Basophils % (Manual) Nucleated RBC % Seg Neutrophils # Seg Neutrophils # Man Lymphocytes # (Manual) Monocytes # (Manual) Eosinophils # (Manual) Basophils # (Manual) PT INR Fibrinogen dRVVT Confirm Interp Factor V Activity POC ABG pH POC ABG pCO2 POC ABG pO2 ABG pO2 ABG HCO3 ABG Base Excess ABG Hemoglobin Oxyhemoglobin Sodium Potassium 3.1 L Chloride Carbon Dioxide BUN 73 H Creatinine 2.3 H Glucose 112 H POC Glucose 135 H 149 H Lactic Acid Calcium Phosphorus Magnesium Direct Bilirubin AST ALT Alkaline Phosphatase Lactate Dehydrogenase Troponin T C-Reactive Protein Total Protein Albumin Prealbumin Triglycerides Cholesterol LDL Cholesterol Direct HDL Cholesterol Urine pH Urine WBC (Auto) Urine Creatinine Urine Total Protein Fluid Total Protein Vancomycin Trough Rheumatoid Factor Complement C4 Miscellaneous Test Crossmatch 11/02/16 11/02/16 11/03/16 17:42 22:54 06:00 WBC RBC Hgb Hct MCV MCH MCHC RDW Plt Count Lymph % (Auto) [place] % (Auto) Lymph # [place] # Baso # Seg Neutrophils % Seg Neuts % (Manual) Lymphocytes % (Manual) Monocytes % (Manual) Eosinophils % (Manual) Basophils % (Manual) Nucleated RBC % Seg Neutrophils # Seg Neutrophils # Man Lymphocytes # (Manual) Monocytes # (Manual) Eosinophils # (Manual) Basophils # (Manual) PT INR Fibrinogen dRVVT Confirm Interp Factor V Activity POC ABG pH POC ABG pCO2 POC ABG pO2 ABG pO2 ABG HCO3 ABG Base Excess ABG Hemoglobin Oxyhemoglobin Sodium Potassium Chloride 96.7 L Carbon Dioxide BUN 41 H Creatinine 1.5 H Glucose 145 H POC Glucose 182 H 115 H Lactic Acid Calcium Phosphorus 1.60 L D Magnesium 1.50 L Direct Bilirubin AST ALT Alkaline Phosphatase Lactate Dehydrogenase Troponin T C-Reactive Protein Total Protein Albumin Prealbumin Triglycerides Cholesterol LDL Cholesterol Direct HDL Cholesterol Urine pH Urine WBC (Auto) Urine Creatinine Urine Total Protein Fluid Total Protein Vancomycin Trough Rheumatoid Factor Complement C4 Miscellaneous Test Crossmatch 11/03/16 11/03/16 11/03/16 11:53 17:45 23:37 WBC RBC Hgb Hct MCV MCH MCHC RDW Plt Count Lymph % (Auto) [place] % (Auto) Lymph # [place] # Baso # Seg Neutrophils % Seg Neuts % (Manual) Lymphocytes % (Manual) Monocytes % (Manual) Eosinophils % (Manual) Basophils % (Manual) Nucleated RBC % Seg Neutrophils # Seg Neutrophils # Man Lymphocytes # (Manual) Monocytes # (Manual) Eosinophils # (Manual) Basophils # (Manual) PT INR Fibrinogen dRVVT Confirm Interp Factor V Activity POC ABG pH POC ABG pCO2 POC ABG pO2 ABG pO2 ABG HCO3 ABG Base Excess ABG Hemoglobin Oxyhemoglobin Sodium Potassium Chloride Carbon Dioxide BUN Creatinine Glucose POC Glucose 131 H 134 H 113 H Lactic Acid Calcium Phosphorus Magnesium Direct Bilirubin AST ALT Alkaline Phosphatase Lactate Dehydrogenase Troponin T C-Reactive Protein Total Protein Albumin Prealbumin Triglycerides Cholesterol LDL Cholesterol Direct HDL Cholesterol Urine pH Urine WBC (Auto) Urine Creatinine Urine Total Protein Fluid Total Protein Vancomycin Trough Rheumatoid Factor Complement C4 Miscellaneous Test Crossmatch 11/04/16 11/04/16 11/04/16 05:41 06:00 12:10 WBC RBC Hgb Hct MCV MCH MCHC RDW Plt Count Lymph % (Auto) [place] % (Auto) Lymph # [place] # Baso # Seg Neutrophils % Seg Neuts % (Manual) Lymphocytes % (Manual) Monocytes % (Manual) Eosinophils % (Manual) Basophils % (Manual) Nucleated RBC % Seg Neutrophils # Seg Neutrophils # Man Lymphocytes # (Manual) Monocytes # (Manual) Eosinophils # (Manual) Basophils # (Manual) PT INR Fibrinogen dRVVT Confirm Interp Factor V Activity POC ABG pH POC ABG pCO2 POC ABG pO2 ABG pO2 ABG HCO3 ABG Base Excess ABG Hemoglobin Oxyhemoglobin Sodium Potassium Chloride 96.7 L Carbon Dioxide BUN 52 H Creatinine 1.9 H Glucose 126 H POC Glucose 137 H 191 H Lactic Acid Calcium Phosphorus Magnesium Direct Bilirubin AST ALT Alkaline Phosphatase Lactate Dehydrogenase Troponin T C-Reactive Protein Total Protein Albumin Prealbumin Triglycerides Cholesterol LDL Cholesterol Direct HDL Cholesterol Urine pH Urine WBC (Auto) Urine Creatinine Urine Total Protein Fluid Total Protein Vancomycin Trough Rheumatoid Factor Complement C4 Miscellaneous Test Crossmatch 11/04/16 11/05/16 11/05/16 22:57 03:10 05:10 WBC RBC Hgb Hct MCV MCH MCHC RDW Plt Count Lymph % (Auto) [place] % (Auto) Lymph # [place] # Baso # Seg Neutrophils % Seg Neuts % (Manual) Lymphocytes % (Manual) Monocytes % (Manual) Eosinophils % (Manual) Basophils % (Manual) Nucleated RBC % Seg Neutrophils # Seg Neutrophils # Man Lymphocytes # (Manual) Monocytes # (Manual) Eosinophils # (Manual) Basophils # (Manual) PT INR Fibrinogen dRVVT Confirm Interp Factor V Activity POC ABG pH POC ABG pCO2 POC ABG pO2 ABG pO2 ABG HCO3 ABG Base Excess ABG Hemoglobin Oxyhemoglobin Sodium 136 L Potassium Chloride 97.2 L Carbon Dioxide BUN 32 H Creatinine 1.3 H Glucose 123 H POC Glucose 125 H 108 H Lactic Acid Calcium 7.8 L Phosphorus Magnesium Direct Bilirubin AST ALT Alkaline Phosphatase Lactate Dehydrogenase Troponin T C-Reactive Protein Total Protein Albumin Prealbumin Triglycerides Cholesterol LDL Cholesterol Direct HDL Cholesterol Urine pH Urine WBC (Auto) Urine Creatinine Urine Total Protein Fluid Total Protein Vancomycin Trough Rheumatoid Factor Complement C4 Miscellaneous Test Crossmatch 11/05/16 11/05/16 11/05/16 12:23 13:09 13:25 WBC RBC Hgb Hct MCV MCH MCHC RDW Plt Count Lymph % (Auto) [place] % (Auto) Lymph # [place] # Baso # Seg Neutrophils % Seg Neuts % (Manual) Lymphocytes % (Manual) Monocytes % (Manual) Eosinophils % (Manual) Basophils % (Manual) Nucleated RBC % Seg Neutrophils # Seg Neutrophils # Man Lymphocytes # (Manual) Monocytes # (Manual) Eosinophils # (Manual) Basophils # (Manual) PT INR Fibrinogen dRVVT Confirm Interp Factor V Activity POC ABG pH POC ABG pCO2 POC ABG pO2 ABG pO2 ABG HCO3 ABG Base Excess ABG Hemoglobin Oxyhemoglobin Sodium Potassium Chloride Carbon Dioxide BUN Creatinine Glucose POC Glucose 124 H Lactic Acid Calcium Phosphorus Magnesium Direct Bilirubin AST ALT Alkaline Phosphatase Lactate Dehydrogenase Troponin T C-Reactive Protein 11.40 H Total Protein Albumin Prealbumin Triglycerides Cholesterol LDL Cholesterol Direct HDL Cholesterol Urine pH 9.0 H Urine WBC (Auto) Urine Creatinine Urine Total Protein Fluid Total Protein Vancomycin Trough Rheumatoid Factor Complement C4 Miscellaneous Test Crossmatch 11/05/16 11/05/16 11/05/16 13:25 17:54 23:42 WBC RBC Hgb Hct MCV MCH MCHC RDW Plt Count Lymph % (Auto) [place] % (Auto) Lymph # [place] # Baso # Seg Neutrophils % Seg Neuts % (Manual) Lymphocytes % (Manual) Monocytes % (Manual) Eosinophils % (Manual) Basophils % (Manual) Nucleated RBC % Seg Neutrophils # Seg Neutrophils # Man Lymphocytes # (Manual) Monocytes # (Manual) Eosinophils # (Manual) Basophils # (Manual) PT INR Fibrinogen dRVVT Confirm Interp Factor V Activity POC ABG pH POC ABG pCO2 POC ABG pO2 ABG pO2 ABG HCO3 ABG Base Excess ABG Hemoglobin Oxyhemoglobin Sodium Potassium Chloride Carbon Dioxide BUN Creatinine Glucose POC Glucose 114 H 134 H Lactic Acid Calcium Phosphorus Magnesium Direct Bilirubin AST ALT Alkaline Phosphatase Lactate Dehydrogenase Troponin T C-Reactive Protein Total Protein Albumin Prealbumin Triglycerides Cholesterol LDL Cholesterol Direct HDL Cholesterol Urine pH Urine WBC (Auto) Urine Creatinine Urine Total Protein Fluid Total Protein Vancomycin Trough Rheumatoid Factor Complement C4 Miscellaneous Test Flexitest 1 H Crossmatch 11/06/16 11/06/16 11/06/16 04:56 06:25 06:25 WBC RBC 2.50 L Hgb 7.3 L Hct 22.5 L MCV MCH MCHC RDW 16.9 H Plt Count Lymph % (Auto) [place] % (Auto) 10.5 H Lymph # [place] # 1.1 H Baso # Seg Neutrophils % Seg Neuts % (Manual) Lymphocytes % (Manual) Monocytes % (Manual) Eosinophils % (Manual) Basophils % (Manual) Nucleated RBC % Seg Neutrophils # Seg Neutrophils # Man Lymphocytes # (Manual) Monocytes # (Manual) Eosinophils # (Manual) Basophils # (Manual) PT INR Fibrinogen dRVVT Confirm Interp Factor V Activity POC ABG pH POC ABG pCO2 POC ABG pO2 ABG pO2 ABG HCO3 ABG Base Excess ABG Hemoglobin Oxyhemoglobin Sodium Potassium 5.1 H Chloride 95.9 L Carbon Dioxide BUN 52 H Creatinine 1.8 H Glucose 117 H POC Glucose 120 H Lactic Acid Calcium Phosphorus Magnesium Direct Bilirubin AST 103 H ALT 77 H Alkaline Phosphatase 285 H Lactate Dehydrogenase Troponin T C-Reactive Protein Total Protein 6.2 L Albumin 1.8 L Prealbumin 0.180 L Triglycerides Cholesterol LDL Cholesterol Direct HDL Cholesterol Urine pH Urine WBC (Auto) Urine Creatinine Urine Total Protein Fluid Total Protein Vancomycin Trough Rheumatoid Factor Complement C4 Miscellaneous Test Crossmatch 11/06/16 11/06/16 11/06/16 11:56 17:14 23:52 WBC RBC Hgb Hct MCV MCH MCHC RDW Plt Count Lymph % (Auto) [place] % (Auto) Lymph # [place] # Baso # Seg Neutrophils % Seg Neuts % (Manual) Lymphocytes % (Manual) Monocytes % (Manual) Eosinophils % (Manual) Basophils % (Manual) Nucleated RBC % Seg Neutrophils # Seg Neutrophils # Man Lymphocytes # (Manual) Monocytes # (Manual) Eosinophils # (Manual) Basophils # (Manual) PT INR Fibrinogen dRVVT Confirm Interp Factor V Activity POC ABG pH POC ABG pCO2 POC ABG pO2 ABG pO2 ABG HCO3 ABG Base Excess ABG Hemoglobin Oxyhemoglobin Sodium Potassium Chloride Carbon Dioxide BUN Creatinine Glucose POC Glucose 141 H 125 H 130 H Lactic Acid Calcium Phosphorus Magnesium Direct Bilirubin AST ALT Alkaline Phosphatase Lactate Dehydrogenase Troponin T C-Reactive Protein Total Protein Albumin Prealbumin Triglycerides Cholesterol LDL Cholesterol Direct HDL Cholesterol Urine pH Urine WBC (Auto) Urine Creatinine Urine Total Protein Fluid Total Protein Vancomycin Trough Rheumatoid Factor Complement C4 Miscellaneous Test Crossmatch 11/07/16 11/07/16 11/07/16 06:30 06:30 09:37 WBC RBC 2.18 L Hgb 6.3 L Hct 19.7 L* MCV MCH MCHC RDW 16.8 H Plt Count Lymph % (Auto) [place] % (Auto) 10.0 H Lymph # [place] # 1.0 H Baso # Seg Neutrophils % Seg Neuts % (Manual) Lymphocytes % (Manual) Monocytes % (Manual) Eosinophils % (Manual) Basophils % (Manual) Nucleated RBC % Seg Neutrophils # Seg Neutrophils # Man Lymphocytes # (Manual) Monocytes # (Manual) Eosinophils # (Manual) Basophils # (Manual) PT INR Fibrinogen dRVVT Confirm Interp Factor V Activity POC ABG pH POC ABG pCO2 POC ABG pO2 ABG pO2 ABG HCO3 ABG Base Excess ABG Hemoglobin Oxyhemoglobin Sodium 135 L Potassium Chloride 95.6 L Carbon Dioxide BUN 70 H Creatinine 2.0 H Glucose 126 H POC Glucose Lactic Acid Calcium Phosphorus Magnesium Direct Bilirubin AST ALT Alkaline Phosphatase Lactate Dehydrogenase Troponin T C-Reactive Protein Total Protein Albumin Prealbumin Triglycerides Cholesterol LDL Cholesterol Direct HDL Cholesterol Urine pH Urine WBC (Auto) Urine Creatinine Urine Total Protein Fluid Total Protein Vancomycin Trough Rheumatoid Factor Complement C4 Miscellaneous Test Crossmatch See Detail 11/07/16 11/07/16 11/07/16 12:52 18:51 21:26 WBC RBC Hgb Hct MCV MCH MCHC RDW Plt Count Lymph % (Auto) [place] % (Auto) Lymph # [place] # Baso # Seg Neutrophils % Seg Neuts % (Manual) Lymphocytes % (Manual) Monocytes % (Manual) Eosinophils % (Manual) Basophils % (Manual) Nucleated RBC % Seg Neutrophils # Seg Neutrophils # Man Lymphocytes # (Manual) Monocytes # (Manual) Eosinophils # (Manual) Basophils # (Manual) PT INR Fibrinogen dRVVT Confirm Interp Factor V Activity POC ABG pH 7.523 H POC ABG pCO2 34.6 L POC ABG pO2 53 L ABG pO2 ABG HCO3 ABG Base Excess ABG Hemoglobin Oxyhemoglobin Sodium Potassium Chloride Carbon Dioxide BUN Creatinine Glucose POC Glucose 142 H 155 H Lactic Acid Calcium Phosphorus Magnesium Direct Bilirubin AST ALT Alkaline Phosphatase Lactate Dehydrogenase Troponin T C-Reactive Protein Total Protein Albumin Prealbumin Triglycerides Cholesterol LDL Cholesterol Direct HDL Cholesterol Urine pH Urine WBC (Auto) Urine Creatinine Urine Total Protein Fluid Total Protein Vancomycin Trough Rheumatoid Factor Complement C4 Miscellaneous Test Crossmatch 11/07/16 11/08/16 11/08/16 21:34 13:03 23:37 WBC RBC 2.63 L Hgb 7.7 L Hct 22.7 L MCV MCH MCHC RDW 17.0 H Plt Count Lymph % (Auto) [place] % (Auto) Lymph # [place] # Baso # Seg Neutrophils % Seg Neuts % (Manual) Lymphocytes % (Manual) Monocytes % (Manual) Eosinophils % (Manual) Basophils % (Manual) Nucleated RBC % Seg Neutrophils # Seg Neutrophils # Man Lymphocytes # (Manual) Monocytes # (Manual) Eosinophils # (Manual) Basophils # (Manual) PT INR Fibrinogen dRVVT Confirm Interp Factor V Activity POC ABG pH 7.478 H POC ABG pCO2 34.0 L POC ABG pO2 50 L ABG pO2 ABG HCO3 ABG Base Excess ABG Hemoglobin Oxyhemoglobin Sodium Potassium Chloride Carbon Dioxide BUN Creatinine Glucose POC Glucose 113 H Lactic Acid Calcium Phosphorus Magnesium Direct Bilirubin AST ALT Alkaline Phosphatase Lactate Dehydrogenase Troponin T C-Reactive Protein Total Protein Albumin Prealbumin Triglycerides Cholesterol LDL Cholesterol Direct HDL Cholesterol Urine pH Urine WBC (Auto) Urine Creatinine Urine Total Protein Fluid Total Protein Vancomycin Trough Rheumatoid Factor Complement C4 Miscellaneous Test Crossmatch 11/09/16 11/09/16 11/09/16 04:35 10:15 18:21 WBC RBC 2.68 L Hgb 7.8 L Hct 23.3 L MCV MCH MCHC RDW 17.0 H Plt Count Lymph % (Auto) [place] % (Auto) 12.1 H Lymph # [place] # 1.1 H Baso # Seg Neutrophils % Seg Neuts % (Manual) Lymphocytes % (Manual) Monocytes % (Manual) Eosinophils % (Manual) Basophils % (Manual) Nucleated RBC % Seg Neutrophils # Seg Neutrophils # Man Lymphocytes # (Manual) Monocytes # (Manual) Eosinophils # (Manual) Basophils # (Manual) PT INR Fibrinogen dRVVT Confirm Interp Factor V Activity POC ABG pH POC ABG pCO2 POC ABG pO2 ABG pO2 ABG HCO3 ABG Base Excess ABG Hemoglobin Oxyhemoglobin Sodium Potassium Chloride Carbon Dioxide BUN 51 H Creatinine 1.8 H Glucose POC Glucose 60 L Lactic Acid Calcium 8.3 L Phosphorus Magnesium Direct Bilirubin AST ALT Alkaline Phosphatase Lactate Dehydrogenase Troponin T C-Reactive Protein Total Protein Albumin Prealbumin Triglycerides Cholesterol LDL Cholesterol Direct HDL Cholesterol Urine pH Urine WBC (Auto) Urine Creatinine Urine Total Protein Fluid Total Protein Vancomycin Trough Rheumatoid Factor Complement C4 Miscellaneous Test Crossmatch 11/09/16 11/10/16 11/10/16 18:55 07:00 11:51 WBC RBC Hgb Hct MCV MCH MCHC RDW Plt Count Lymph % (Auto) [place] % (Auto) Lymph # [place] # Baso # Seg Neutrophils % Seg Neuts % (Manual) Lymphocytes % (Manual) Monocytes % (Manual) Eosinophils % (Manual) Basophils % (Manual) Nucleated RBC % Seg Neutrophils # Seg Neutrophils # Man Lymphocytes # (Manual) Monocytes # (Manual) Eosinophils # (Manual) Basophils # (Manual) PT INR Fibrinogen dRVVT Confirm Interp Factor V Activity POC ABG pH POC ABG pCO2 POC ABG pO2 ABG pO2 ABG HCO3 ABG Base Excess ABG Hemoglobin Oxyhemoglobin Sodium Potassium 3.0 L D Chloride 97.4 L Carbon Dioxide BUN 28 H Creatinine 1.3 H Glucose POC Glucose 68 L 120 H Lactic Acid Calcium 7.8 L Phosphorus Magnesium Direct Bilirubin AST ALT Alkaline Phosphatase Lactate Dehydrogenase Troponin T C-Reactive Protein Total Protein Albumin Prealbumin Triglycerides Cholesterol LDL Cholesterol Direct HDL Cholesterol Urine pH Urine WBC (Auto) Urine Creatinine Urine Total Protein Fluid Total Protein Vancomycin Trough Rheumatoid Factor Complement C4 Miscellaneous Test Crossmatch 11/10/16 11/11/16 11/11/16 14:20 06:59 06:59 WBC RBC 2.81 L Hgb 8.1 L Hct 24.4 L MCV MCH MCHC RDW 16.4 H Plt Count Lymph % (Auto) [place] % (Auto) 10.8 H Lymph # [place] # 1.0 H Baso # Seg Neutrophils % Seg Neuts % (Manual) Lymphocytes % (Manual) Monocytes % (Manual) Eosinophils % (Manual) Basophils % (Manual) Nucleated RBC % Seg Neutrophils # Seg Neutrophils # Man Lymphocytes # (Manual) Monocytes # (Manual) Eosinophils # (Manual) Basophils # (Manual) PT INR Fibrinogen dRVVT Confirm Interp Factor V Activity POC ABG pH POC ABG pCO2 POC ABG pO2 ABG pO2 ABG HCO3 ABG Base Excess ABG Hemoglobin Oxyhemoglobin Sodium Potassium Chloride Carbon Dioxide BUN Creatinine Glucose POC Glucose Lactic Acid Calcium Phosphorus Magnesium Direct Bilirubin AST ALT Alkaline Phosphatase Lactate Dehydrogenase 196 H Troponin T C-Reactive Protein Total Protein 6.1 L Albumin Prealbumin Triglycerides Cholesterol LDL Cholesterol Direct HDL Cholesterol Urine pH Urine WBC (Auto) Urine Creatinine Urine Total Protein Fluid Total Protein < 3.0 L Vancomycin Trough Rheumatoid Factor Complement C4 Miscellaneous Test Crossmatch 11/11/16 11/11/16 11/12/16 06:59 09:50 04:00 WBC RBC Hgb Hct MCV MCH MCHC RDW Plt Count Lymph % (Auto) [place] % (Auto) Lymph # [place] # Baso # Seg Neutrophils % Seg Neuts % (Manual) Lymphocytes % (Manual) Monocytes % (Manual) Eosinophils % (Manual) Basophils % (Manual) Nucleated RBC % Seg Neutrophils # Seg Neutrophils # Man Lymphocytes # (Manual) Monocytes # (Manual) Eosinophils # (Manual) Basophils # (Manual) PT INR 1.18 H Fibrinogen dRVVT Confirm Interp Factor V Activity POC ABG pH POC ABG pCO2 POC ABG pO2 ABG pO2 ABG HCO3 ABG Base Excess ABG Hemoglobin Oxyhemoglobin Sodium 136 L 133 L Potassium Chloride 96.1 L 94.8 L Carbon Dioxide 21 L BUN 37 H 42 H Creatinine 1.8 H 2.0 H Glucose POC Glucose Lactic Acid Calcium Phosphorus Magnesium Direct Bilirubin AST ALT Alkaline Phosphatase Lactate Dehydrogenase Troponin T C-Reactive Protein Total Protein Albumin Prealbumin Triglycerides Cholesterol LDL Cholesterol Direct HDL Cholesterol Urine pH Urine WBC (Auto) Urine Creatinine Urine Total Protein Fluid Total Protein Vancomycin Trough Rheumatoid Factor Complement C4 Miscellaneous Test Crossmatch 11/12/16 11/12/16 11/13/16 04:00 23:55 05:53 WBC RBC Hgb 8.9 L Hct 27.2 L MCV MCH MCHC RDW Plt Count Lymph % (Auto) [place] % (Auto) Lymph # [place] # Baso # Seg Neutrophils % Seg Neuts % (Manual) Lymphocytes % (Manual) Monocytes % (Manual) Eosinophils % (Manual) Basophils % (Manual) Nucleated RBC % Seg Neutrophils # Seg Neutrophils # Man Lymphocytes # (Manual) Monocytes # (Manual) Eosinophils # (Manual) Basophils # (Manual) PT INR Fibrinogen dRVVT Confirm Interp Factor V Activity POC ABG pH POC ABG pCO2 POC ABG pO2 ABG pO2 ABG HCO3 ABG Base Excess ABG Hemoglobin Oxyhemoglobin Sodium Potassium Chloride Carbon Dioxide BUN Creatinine Glucose POC Glucose 132 H 120 H Lactic Acid Calcium Phosphorus Magnesium Direct Bilirubin AST ALT Alkaline Phosphatase Lactate Dehydrogenase Troponin T C-Reactive Protein Total Protein Albumin Prealbumin Triglycerides Cholesterol LDL Cholesterol Direct HDL Cholesterol Urine pH Urine WBC (Auto) Urine Creatinine Urine Total Protein Fluid Total Protein Vancomycin Trough Rheumatoid Factor Complement C4 Miscellaneous Test Crossmatch 11/13/16 11/13/16 11/13/16 11:43 17:09 23:41 WBC RBC Hgb Hct MCV MCH MCHC RDW Plt Count Lymph % (Auto) [place] % (Auto) Lymph # [place] # Baso # Seg Neutrophils % Seg Neuts % (Manual) Lymphocytes % (Manual) Monocytes % (Manual) Eosinophils % (Manual) Basophils % (Manual) Nucleated RBC % Seg Neutrophils # Seg Neutrophils # Man Lymphocytes # (Manual) Monocytes # (Manual) Eosinophils # (Manual) Basophils # (Manual) PT INR Fibrinogen dRVVT Confirm Interp Factor V Activity POC ABG pH POC ABG pCO2 POC ABG pO2 ABG pO2 ABG HCO3 ABG Base Excess ABG Hemoglobin Oxyhemoglobin Sodium Potassium Chloride Carbon Dioxide BUN Creatinine Glucose POC Glucose 114 H 113 H 108 H Lactic Acid Calcium Phosphorus Magnesium Direct Bilirubin AST ALT Alkaline Phosphatase Lactate Dehydrogenase Troponin T C-Reactive Protein Total Protein Albumin Prealbumin Triglycerides Cholesterol LDL Cholesterol Direct HDL Cholesterol Urine pH Urine WBC (Auto) Urine Creatinine Urine Total Protein Fluid Total Protein Vancomycin Trough Rheumatoid Factor Complement C4 Miscellaneous Test Crossmatch 11/13/16 11/15/16 11/15/16 Unknown 00:37 03:30 WBC 11.2 H RBC 2.72 L Hgb 7.6 L Hct 23.4 L MCV MCH MCHC RDW 16.5 H Plt Count Lymph % (Auto) [place] % (Auto) Lymph # [place] # Baso # Seg Neutrophils % Seg Neuts % (Manual) Lymphocytes % (Manual) Monocytes % (Manual) Eosinophils % (Manual) Basophils % (Manual) Nucleated RBC % Seg Neutrophils # Seg Neutrophils # Man Lymphocytes # (Manual) Monocytes # (Manual) Eosinophils # (Manual) Basophils # (Manual) PT INR Fibrinogen dRVVT Confirm Interp Factor V Activity POC ABG pH POC ABG pCO2 POC ABG pO2 ABG pO2 ABG HCO3 ABG Base Excess ABG Hemoglobin Oxyhemoglobin Sodium 135 L Potassium Chloride 95.2 L Carbon Dioxide BUN 52 H Creatinine 2.2 H Glucose POC Glucose 108 H Lactic Acid Calcium Phosphorus Magnesium Direct Bilirubin AST ALT Alkaline Phosphatase Lactate Dehydrogenase Troponin T C-Reactive Protein Total Protein Albumin Prealbumin Triglycerides Cholesterol LDL Cholesterol Direct HDL Cholesterol Urine pH Urine WBC (Auto) Urine Creatinine Urine Total Protein Fluid Total Protein Vancomycin Trough Rheumatoid Factor Complement C4 Miscellaneous Test Crossmatch 11/15/16 11/15/16 11/15/16 03:30 05:04 11:50 WBC RBC Hgb Hct MCV MCH MCHC RDW Plt Count Lymph % (Auto) [place] % (Auto) Lymph # [place] # Baso # Seg Neutrophils % Seg Neuts % (Manual) Lymphocytes % (Manual) Monocytes % (Manual) Eosinophils % (Manual) Basophils % (Manual) Nucleated RBC % Seg Neutrophils # Seg Neutrophils # Man Lymphocytes # (Manual) Monocytes # (Manual) Eosinophils # (Manual) Basophils # (Manual) PT INR Fibrinogen dRVVT Confirm Interp Factor V Activity POC ABG pH POC ABG pCO2 POC ABG pO2 ABG pO2 ABG HCO3 ABG Base Excess ABG Hemoglobin Oxyhemoglobin Sodium Potassium 3.4 L Chloride Carbon Dioxide BUN 25 H Creatinine 1.5 H Glucose 103 H POC Glucose 121 H 144 H Lactic Acid Calcium Phosphorus Magnesium Direct Bilirubin AST ALT Alkaline Phosphatase Lactate Dehydrogenase Troponin T C-Reactive Protein Total Protein Albumin Prealbumin Triglycerides Cholesterol LDL Cholesterol Direct HDL Cholesterol Urine pH Urine WBC (Auto) Urine Creatinine Urine Total Protein Fluid Total Protein Vancomycin Trough Rheumatoid Factor Complement C4 Miscellaneous Test Crossmatch 11/15/16 11/15/16 11/16/16 21:28 23:20 11:44 WBC RBC Hgb Hct MCV MCH MCHC RDW Plt Count Lymph % (Auto) [place] % (Auto) Lymph # [place] # Baso # Seg Neutrophils % Seg Neuts % (Manual) Lymphocytes % (Manual) Monocytes % (Manual) Eosinophils % (Manual) Basophils % (Manual) Nucleated RBC % Seg Neutrophils # Seg Neutrophils # Man Lymphocytes # (Manual) Monocytes # (Manual) Eosinophils # (Manual) Basophils # (Manual) PT INR Fibrinogen dRVVT Confirm Interp Factor V Activity POC ABG pH 7.462 H POC ABG pCO2 POC ABG pO2 71 L ABG pO2 ABG HCO3 ABG Base Excess ABG Hemoglobin Oxyhemoglobin Sodium Potassium Chloride Carbon Dioxide BUN Creatinine Glucose POC Glucose 116 H 133 H Lactic Acid Calcium Phosphorus Magnesium Direct Bilirubin AST ALT Alkaline Phosphatase Lactate Dehydrogenase Troponin T C-Reactive Protein Total Protein Albumin Prealbumin Triglycerides Cholesterol LDL Cholesterol Direct HDL Cholesterol Urine pH Urine WBC (Auto) Urine Creatinine Urine Total Protein Fluid Total Protein Vancomycin Trough Rheumatoid Factor Complement C4 Miscellaneous Test Crossmatch 11/16/16 11/16/16 11/16/16 12:20 17:05 23:35 WBC 11.7 H RBC 2.73 L Hgb 7.6 L Hct 23.7 L MCV MCH MCHC RDW 16.6 H Plt Count Lymph % (Auto) [place] % (Auto) Lymph # [place] # Baso # Seg Neutrophils % Seg Neuts % (Manual) Lymphocytes % (Manual) Monocytes % (Manual) Eosinophils % (Manual) Basophils % (Manual) Nucleated RBC % Seg Neutrophils # Seg Neutrophils # Man Lymphocytes # (Manual) Monocytes # (Manual) Eosinophils # (Manual) Basophils # (Manual) PT INR Fibrinogen dRVVT Confirm Interp Factor V Activity POC ABG pH POC ABG pCO2 POC ABG pO2 ABG pO2 ABG HCO3 ABG Base Excess ABG Hemoglobin Oxyhemoglobin Sodium Potassium Chloride Carbon Dioxide BUN Creatinine Glucose POC Glucose 154 H 125 H Lactic Acid Calcium Phosphorus Magnesium Direct Bilirubin AST ALT Alkaline Phosphatase Lactate Dehydrogenase Troponin T C-Reactive Protein Total Protein Albumin Prealbumin Triglycerides Cholesterol LDL Cholesterol Direct HDL Cholesterol Urine pH Urine WBC (Auto) Urine Creatinine Urine Total Protein Fluid Total Protein Vancomycin Trough Rheumatoid Factor Complement C4 Miscellaneous Test Crossmatch 11/17/16 11/17/16 11/17/16 03:20 03:20 03:20 WBC RBC 2.55 L Hgb 7.3 L Hct 21.9 L MCV MCH MCHC RDW 16.6 H Plt Count Lymph % (Auto) [place] % (Auto) 11.5 H Lymph # [place] # 1.1 H Baso # Seg Neutrophils % Seg Neuts % (Manual) Lymphocytes % (Manual) Monocytes % (Manual) Eosinophils % (Manual) Basophils % (Manual) Nucleated RBC % Seg Neutrophils # Seg Neutrophils # Man Lymphocytes # (Manual) Monocytes # (Manual) Eosinophils # (Manual) Basophils # (Manual) PT 16.8 H INR 1.37 H Fibrinogen dRVVT Confirm Interp Factor V Activity POC ABG pH POC ABG pCO2 POC ABG pO2 ABG pO2 ABG HCO3 ABG Base Excess ABG Hemoglobin Oxyhemoglobin Sodium Potassium 3.5 L Chloride Carbon Dioxide BUN 21 H Creatinine Glucose POC Glucose Lactic Acid Calcium 7.9 L Phosphorus Magnesium Direct Bilirubin AST ALT Alkaline Phosphatase Lactate Dehydrogenase Troponin T C-Reactive Protein Total Protein Albumin Prealbumin Triglycerides Cholesterol LDL Cholesterol Direct HDL Cholesterol Urine pH Urine WBC (Auto) Urine Creatinine Urine Total Protein Fluid Total Protein Vancomycin Trough Rheumatoid Factor Complement C4 Miscellaneous Test Crossmatch 11/17/16 11/17/16 11/17/16 06:34 11:21 21:22 WBC RBC Hgb Hct MCV MCH MCHC RDW Plt Count Lymph % (Auto) [place] % (Auto) Lymph # [place] # Baso # Seg Neutrophils % Seg Neuts % (Manual) Lymphocytes % (Manual) Monocytes % (Manual) Eosinophils % (Manual) Basophils % (Manual) Nucleated RBC % Seg Neutrophils # Seg Neutrophils # Man Lymphocytes # (Manual) Monocytes # (Manual) Eosinophils # (Manual) Basophils # (Manual) PT INR Fibrinogen dRVVT Confirm Interp Factor V Activity POC ABG pH 7.467 H POC ABG pCO2 POC ABG pO2 73 L ABG pO2 ABG HCO3 ABG Base Excess ABG Hemoglobin Oxyhemoglobin Sodium Potassium Chloride Carbon Dioxide BUN Creatinine Glucose POC Glucose 121 H 119 H Lactic Acid Calcium Phosphorus Magnesium Direct Bilirubin AST ALT Alkaline Phosphatase Lactate Dehydrogenase Troponin T C-Reactive Protein Total Protein Albumin Prealbumin Triglycerides Cholesterol LDL Cholesterol Direct HDL Cholesterol Urine pH Urine WBC (Auto) Urine Creatinine Urine Total Protein Fluid Total Protein Vancomycin Trough Rheumatoid Factor Complement C4 Miscellaneous Test Crossmatch 11/18/16 11/18/16 11/19/16 12:16 17:19 00:00 WBC RBC Hgb Hct MCV MCH MCHC RDW Plt Count Lymph % (Auto) [place] % (Auto) Lymph # [place] # Baso # Seg Neutrophils % Seg Neuts % (Manual) Lymphocytes % (Manual) Monocytes % (Manual) Eosinophils % (Manual) Basophils % (Manual) Nucleated RBC % Seg Neutrophils # Seg Neutrophils # Man Lymphocytes # (Manual) Monocytes # (Manual) Eosinophils # (Manual) Basophils # (Manual) PT INR Fibrinogen dRVVT Confirm Interp Factor V Activity POC ABG pH POC ABG pCO2 POC ABG pO2 ABG pO2 ABG HCO3 ABG Base Excess ABG Hemoglobin Oxyhemoglobin Sodium Potassium Chloride Carbon Dioxide BUN Creatinine Glucose POC Glucose 124 H 162 H 139 H Lactic Acid Calcium Phosphorus Magnesium Direct Bilirubin AST ALT Alkaline Phosphatase Lactate Dehydrogenase Troponin T C-Reactive Protein Total Protein Albumin Prealbumin Triglycerides Cholesterol LDL Cholesterol Direct HDL Cholesterol Urine pH Urine WBC (Auto) Urine Creatinine Urine Total Protein Fluid Total Protein Vancomycin Trough Rheumatoid Factor Complement C4 Miscellaneous Test Crossmatch 11/19/16 11/19/16 11/20/16 05:00 12:43 00:40 WBC RBC Hgb Hct MCV MCH MCHC RDW Plt Count Lymph % (Auto) [place] % (Auto) Lymph # [place] # Baso # Seg Neutrophils % Seg Neuts % (Manual) Lymphocytes % (Manual) Monocytes % (Manual) Eosinophils % (Manual) Basophils % (Manual) Nucleated RBC % Seg Neutrophils # Seg Neutrophils # Man Lymphocytes # (Manual) Monocytes # (Manual) Eosinophils # (Manual) Basophils # (Manual) PT INR Fibrinogen dRVVT Confirm Interp Factor V Activity POC ABG pH POC ABG pCO2 POC ABG pO2 ABG pO2 ABG HCO3 ABG Base Excess ABG Hemoglobin Oxyhemoglobin Sodium Potassium Chloride Carbon Dioxide BUN Creatinine Glucose POC Glucose 110 H 125 H 136 H Lactic Acid Calcium Phosphorus Magnesium Direct Bilirubin AST ALT Alkaline Phosphatase Lactate Dehydrogenase Troponin T C-Reactive Protein Total Protein Albumin Prealbumin Triglycerides Cholesterol LDL Cholesterol Direct HDL Cholesterol Urine pH Urine WBC (Auto) Urine Creatinine Urine Total Protein Fluid Total Protein Vancomycin Trough Rheumatoid Factor Complement C4 Miscellaneous Test Crossmatch 11/20/16 11/20/16 11/20/16 05:00 05:00 05:51 WBC 13.1 H RBC 2.74 L Hgb 7.7 L Hct 23.6 L MCV MCH MCHC RDW 16.9 H Plt Count Lymph % (Auto) [place] % (Auto) 10.8 H Lymph # [place] # 1.4 H Baso # Seg Neutrophils % Seg Neuts % (Manual) Lymphocytes % (Manual) Monocytes % (Manual) Eosinophils % (Manual) Basophils % (Manual) Nucleated RBC % Seg Neutrophils # 7.9 H Seg Neutrophils # Man Lymphocytes # (Manual) Monocytes # (Manual) Eosinophils # (Manual) Basophils # (Manual) PT INR Fibrinogen dRVVT Confirm Interp Factor V Activity POC ABG pH POC ABG pCO2 POC ABG pO2 ABG pO2 ABG HCO3 ABG Base Excess ABG Hemoglobin Oxyhemoglobin Sodium Potassium Chloride Carbon Dioxide BUN 31 H Creatinine 1.8 H Glucose 129 H POC Glucose 133 H Lactic Acid Calcium Phosphorus Magnesium Direct Bilirubin AST ALT Alkaline Phosphatase Lactate Dehydrogenase Troponin T C-Reactive Protein Total Protein Albumin Prealbumin Triglycerides Cholesterol LDL Cholesterol Direct HDL Cholesterol Urine pH Urine WBC (Auto) Urine Creatinine Urine Total Protein Fluid Total Protein Vancomycin Trough Rheumatoid Factor Complement C4 Miscellaneous Test Crossmatch 11/20/16 11/20/16 11/21/16 12:40 18:10 01:20 WBC RBC Hgb Hct MCV MCH MCHC RDW Plt Count Lymph % (Auto) [place] % (Auto) Lymph # [place] # Baso # Seg Neutrophils % Seg Neuts % (Manual) Lymphocytes % (Manual) Monocytes % (Manual) Eosinophils % (Manual) Basophils % (Manual) Nucleated RBC % Seg Neutrophils # Seg Neutrophils # Man Lymphocytes # (Manual) Monocytes # (Manual) Eosinophils # (Manual) Basophils # (Manual) PT INR Fibrinogen dRVVT Confirm Interp Factor V Activity POC ABG pH POC ABG pCO2 POC ABG pO2 ABG pO2 ABG HCO3 ABG Base Excess ABG Hemoglobin Oxyhemoglobin Sodium Potassium Chloride Carbon Dioxide BUN Creatinine Glucose POC Glucose 134 H 138 H 136 H Lactic Acid Calcium Phosphorus Magnesium Direct Bilirubin AST ALT Alkaline Phosphatase Lactate Dehydrogenase Troponin T C-Reactive Protein Total Protein Albumin Prealbumin Triglycerides Cholesterol LDL Cholesterol Direct HDL Cholesterol Urine pH Urine WBC (Auto) Urine Creatinine Urine Total Protein Fluid Total Protein Vancomycin Trough Rheumatoid Factor Complement C4 Miscellaneous Test Crossmatch 11/21/16 11/21/16 11/21/16 07:04 07:45 07:45 WBC 22.0 H RBC 2.91 L Hgb 8.2 L Hct 25.4 L MCV MCH MCHC RDW 17.1 H Plt Count Lymph % (Auto) [place] % (Auto) Lymph # [place] # Baso # Seg Neutrophils % Seg Neuts % (Manual) Lymphocytes % (Manual) 8.0 L Monocytes % (Manual) Eosinophils % (Manual) Basophils % (Manual) Nucleated RBC % Seg Neutrophils # Seg Neutrophils # Man 14.7 H Lymphocytes # (Manual) Monocytes # (Manual) 1.1 H Eosinophils # (Manual) Basophils # (Manual) PT INR Fibrinogen dRVVT Confirm Interp Factor V Activity POC ABG pH POC ABG pCO2 POC ABG pO2 ABG pO2 ABG HCO3 ABG Base Excess ABG Hemoglobin Oxyhemoglobin Sodium Potassium Chloride Carbon Dioxide BUN 42 H Creatinine 2.0 H Glucose POC Glucose 108 H Lactic Acid Calcium Phosphorus Magnesium Direct Bilirubin AST ALT Alkaline Phosphatase Lactate Dehydrogenase Troponin T C-Reactive Protein Total Protein Albumin Prealbumin Triglycerides Cholesterol LDL Cholesterol Direct HDL Cholesterol Urine pH Urine WBC (Auto) Urine Creatinine Urine Total Protein Fluid Total Protein Vancomycin Trough Rheumatoid Factor Complement C4 Miscellaneous Test Crossmatch 11/21/16 11/21/16 11/21/16 08:38 10:09 11:20 WBC RBC Hgb Hct MCV MCH MCHC RDW Plt Count Lymph % (Auto) [place] % (Auto) Lymph # [place] # Baso # Seg Neutrophils % Seg Neuts % (Manual) Lymphocytes % (Manual) Monocytes % (Manual) Eosinophils % (Manual) Basophils % (Manual) Nucleated RBC % Seg Neutrophils # Seg Neutrophils # Man Lymphocytes # (Manual) Monocytes # (Manual) Eosinophils # (Manual) Basophils # (Manual) PT INR Fibrinogen dRVVT Confirm Interp Factor V Activity POC ABG pH 7.346 L POC ABG pCO2 34.4 L POC ABG pO2 314 H ABG pO2 ABG HCO3 ABG Base Excess ABG Hemoglobin Oxyhemoglobin Sodium Potassium Chloride Carbon Dioxide BUN Creatinine Glucose POC Glucose 195 H 153 H Lactic Acid Calcium Phosphorus Magnesium Direct Bilirubin AST ALT Alkaline Phosphatase Lactate Dehydrogenase Troponin T C-Reactive Protein Total Protein Albumin Prealbumin Triglycerides Cholesterol LDL Cholesterol Direct HDL Cholesterol Urine pH Urine WBC (Auto) Urine Creatinine Urine Total Protein Fluid Total Protein Vancomycin Trough Rheumatoid Factor Complement C4 Miscellaneous Test Crossmatch 11/21/16 11/22/16 11/22/16 23:37 04:48 05:00 WBC 29.7 H RBC 2.73 L Hgb 7.5 L Hct 24.2 L MCV MCH 27 L MCHC RDW 17.4 H Plt Count Lymph % (Auto) [place] % (Auto) Lymph # [place] # Baso # Seg Neutrophils % Seg Neuts % (Manual) Lymphocytes % (Manual) 7.0 L Monocytes % (Manual) Eosinophils % (Manual) Basophils % (Manual) Nucleated RBC % Seg Neutrophils # Seg Neutrophils # Man 15.4 H Lymphocytes # (Manual) Monocytes # (Manual) Eosinophils # (Manual) Basophils # (Manual) PT INR Fibrinogen dRVVT Confirm Interp Factor V Activity POC ABG pH POC ABG pCO2 24.6 L POC ABG pO2 189 H ABG pO2 ABG HCO3 ABG Base Excess ABG Hemoglobin Oxyhemoglobin Sodium Potassium Chloride Carbon Dioxide BUN Creatinine Glucose POC Glucose 65 L Lactic Acid Calcium Phosphorus Magnesium Direct Bilirubin AST ALT Alkaline Phosphatase Lactate Dehydrogenase Troponin T C-Reactive Protein Total Protein Albumin Prealbumin Triglycerides Cholesterol LDL Cholesterol Direct HDL Cholesterol Urine pH Urine WBC (Auto) Urine Creatinine Urine Total Protein Fluid Total Protein Vancomycin Trough Rheumatoid Factor Complement C4 Miscellaneous Test Crossmatch 11/22/16 11/23/16 11/23/16 05:00 03:44 04:06 WBC RBC 2.52 L Hgb 7.2 L Hct 21.5 L MCV MCH MCHC RDW 17.1 H Plt Count Lymph % (Auto) [place] % (Auto) 12.4 H Lymph # [place] # 1.4 H Baso # Seg Neutrophils % Seg Neuts % (Manual) Lymphocytes % (Manual) Monocytes % (Manual) Eosinophils % (Manual) Basophils % (Manual) Nucleated RBC % Seg Neutrophils # Seg Neutrophils # Man Lymphocytes # (Manual) Monocytes # (Manual) Eosinophils # (Manual) Basophils # (Manual) PT INR Fibrinogen dRVVT Confirm Interp Factor V Activity POC ABG pH 7.493 H POC ABG pCO2 29.5 L POC ABG pO2 49 L ABG pO2 ABG HCO3 ABG Base Excess ABG Hemoglobin Oxyhemoglobin Sodium 134 L Potassium Chloride 95.9 L Carbon Dioxide 14 L D BUN 51 H Creatinine 2.6 H Glucose POC Glucose Lactic Acid Calcium Phosphorus Magnesium Direct Bilirubin AST ALT Alkaline Phosphatase Lactate Dehydrogenase Troponin T C-Reactive Protein Total Protein Albumin Prealbumin Triglycerides Cholesterol LDL Cholesterol Direct HDL Cholesterol Urine pH Urine WBC (Auto) Urine Creatinine Urine Total Protein Fluid Total Protein Vancomycin Trough Rheumatoid Factor Complement C4 Miscellaneous Test Crossmatch 11/23/16 11/23/16 11/24/16 04:06 11:29 06:39 WBC RBC Hgb Hct MCV MCH MCHC RDW Plt Count Lymph % (Auto) [place] % (Auto) Lymph # [place] # Baso # Seg Neutrophils % Seg Neuts % (Manual) Lymphocytes % (Manual) Monocytes % (Manual) Eosinophils % (Manual) Basophils % (Manual) Nucleated RBC % Seg Neutrophils # Seg Neutrophils # Man Lymphocytes # (Manual) Monocytes # (Manual) Eosinophils # (Manual) Basophils # (Manual) PT INR Fibrinogen dRVVT Confirm Interp Factor V Activity POC ABG pH POC ABG pCO2 POC ABG pO2 ABG pO2 ABG HCO3 ABG Base Excess ABG Hemoglobin Oxyhemoglobin Sodium 136 L Potassium Chloride 95.2 L Carbon Dioxide BUN 60 H Creatinine 2.9 H Glucose POC Glucose 69 L 305 H Lactic Acid Calcium Phosphorus Magnesium 1.60 L Direct Bilirubin AST ALT Alkaline Phosphatase Lactate Dehydrogenase Troponin T C-Reactive Protein Total Protein Albumin Prealbumin Triglycerides Cholesterol LDL Cholesterol Direct HDL Cholesterol Urine pH Urine WBC (Auto) Urine Creatinine Urine Total Protein Fluid Total Protein Vancomycin Trough Rheumatoid Factor Complement C4 Miscellaneous Test Crossmatch 11/24/16 11/24/16 11/24/16 06:43 08:08 08:08 WBC 11.2 H RBC 2.47 L Hgb 6.8 L Hct 20.6 L MCV MCH MCHC RDW 17.0 H Plt Count Lymph % (Auto) [place] % (Auto) 10.3 H Lymph # [place] # 1.2 H Baso # Seg Neutrophils % Seg Neuts % (Manual) Lymphocytes % (Manual) Monocytes % (Manual) Eosinophils % (Manual) Basophils % (Manual) Nucleated RBC % Seg Neutrophils # Seg Neutrophils # Man Lymphocytes # (Manual) Monocytes # (Manual) Eosinophils # (Manual) Basophils # (Manual) PT INR Fibrinogen dRVVT Confirm Interp Factor V Activity POC ABG pH POC ABG pCO2 POC ABG pO2 ABG pO2 ABG HCO3 ABG Base Excess ABG Hemoglobin Oxyhemoglobin Sodium 135 L Potassium Chloride 96.3 L Carbon Dioxide BUN 61 H Creatinine 3.1 H Glucose POC Glucose 62 L Lactic Acid Calcium 8.2 L Phosphorus Magnesium Direct Bilirubin AST ALT Alkaline Phosphatase Lactate Dehydrogenase Troponin T C-Reactive Protein Total Protein Albumin Prealbumin Triglycerides Cholesterol LDL Cholesterol Direct HDL Cholesterol Urine pH Urine WBC (Auto) Urine Creatinine Urine Total Protein Fluid Total Protein Vancomycin Trough Rheumatoid Factor Complement C4 Miscellaneous Test Crossmatch 11/24/16 11/24/16 11/24/16 08:34 11:20 12:41 WBC RBC Hgb Hct MCV MCH MCHC RDW Plt Count Lymph % (Auto) [place] % (Auto) Lymph # [place] # Baso # Seg Neutrophils % Seg Neuts % (Manual) Lymphocytes % (Manual) Monocytes % (Manual) Eosinophils % (Manual) Basophils % (Manual) Nucleated RBC % Seg Neutrophils # Seg Neutrophils # Man Lymphocytes # (Manual) Monocytes # (Manual) Eosinophils # (Manual) Basophils # (Manual) PT INR Fibrinogen dRVVT Confirm Interp Factor V Activity POC ABG pH POC ABG pCO2 POC ABG pO2 ABG pO2 ABG HCO3 ABG Base Excess ABG Hemoglobin Oxyhemoglobin Sodium Potassium Chloride Carbon Dioxide BUN Creatinine Glucose POC Glucose 108 H Lactic Acid Calcium Phosphorus Magnesium 1.60 L Direct Bilirubin AST ALT Alkaline Phosphatase Lactate Dehydrogenase Troponin T C-Reactive Protein Total Protein Albumin Prealbumin Triglycerides Cholesterol LDL Cholesterol Direct HDL Cholesterol Urine pH Urine WBC (Auto) Urine Creatinine Urine Total Protein Fluid Total Protein Vancomycin Trough Rheumatoid Factor Complement C4 Miscellaneous Test Crossmatch See Detail 11/25/16 11/25/16 11/25/16 00:03 04:42 04:42 WBC RBC 3.03 L Hgb 8.6 L Hct 25.3 L MCV MCH MCHC RDW 16.2 H Plt Count Lymph % (Auto) [place] % (Auto) 8.1 H Lymph # [place] # Baso # Seg Neutrophils % 71.3 H Seg Neuts % (Manual) Lymphocytes % (Manual) Monocytes % (Manual) Eosinophils % (Manual) Basophils % (Manual) Nucleated RBC % Seg Neutrophils # Seg Neutrophils # Man Lymphocytes # (Manual) Monocytes # (Manual) Eosinophils # (Manual) Basophils # (Manual) PT INR Fibrinogen dRVVT Confirm Interp Factor V Activity POC ABG pH POC ABG pCO2 POC ABG pO2 ABG pO2 ABG HCO3 ABG Base Excess ABG Hemoglobin Oxyhemoglobin Sodium Potassium Chloride Carbon Dioxide BUN 61 H Creatinine 3.0 H Glucose 102 H POC Glucose 113 H Lactic Acid Calcium 8.2 L Phosphorus Magnesium Direct Bilirubin AST ALT Alkaline Phosphatase 142 H Lactate Dehydrogenase Troponin T C-Reactive Protein Total Protein 5.7 L Albumin 1.5 L Prealbumin Triglycerides Cholesterol LDL Cholesterol Direct HDL Cholesterol Urine pH Urine WBC (Auto) Urine Creatinine Urine Total Protein Fluid Total Protein Vancomycin Trough Rheumatoid Factor Complement C4 Miscellaneous Test Crossmatch 11/25/16 11/25/16 11/25/16 05:12 11:31 14:12 WBC RBC Hgb Hct MCV MCH MCHC RDW Plt Count Lymph % (Auto) [place] % (Auto) Lymph # [place] # Baso # Seg Neutrophils % Seg Neuts % (Manual) Lymphocytes % (Manual) Monocytes % (Manual) Eosinophils % (Manual) Basophils % (Manual) Nucleated RBC % Seg Neutrophils # Seg Neutrophils # Man Lymphocytes # (Manual) Monocytes # (Manual) Eosinophils # (Manual) Basophils # (Manual) PT INR Fibrinogen dRVVT Confirm Interp Factor V Activity POC ABG pH 7.487 H POC ABG pCO2 POC ABG pO2 153 H ABG pO2 ABG HCO3 ABG Base Excess ABG Hemoglobin Oxyhemoglobin Sodium Potassium Chloride Carbon Dioxide BUN Creatinine Glucose POC Glucose 131 H 140 H Lactic Acid Calcium Phosphorus Magnesium Direct Bilirubin AST ALT Alkaline Phosphatase Lactate Dehydrogenase Troponin T C-Reactive Protein Total Protein Albumin Prealbumin Triglycerides Cholesterol LDL Cholesterol Direct HDL Cholesterol Urine pH Urine WBC (Auto) Urine Creatinine Urine Total Protein Fluid Total Protein Vancomycin Trough Rheumatoid Factor Complement C4 Miscellaneous Test Crossmatch 11/25/16 11/26/16 11/26/16 17:23 00:09 05:13 WBC RBC 2.94 L Hgb 8.4 L Hct 24.6 L MCV MCH MCHC RDW 16.4 H Plt Count Lymph % (Auto) [place] % (Auto) 12.3 H Lymph # [place] # 1.1 H Baso # Seg Neutrophils % Seg Neuts % (Manual) Lymphocytes % (Manual) Monocytes % (Manual) Eosinophils % (Manual) Basophils % (Manual) Nucleated RBC % Seg Neutrophils # Seg Neutrophils # Man Lymphocytes # (Manual) Monocytes # (Manual) Eosinophils # (Manual) Basophils # (Manual) PT INR Fibrinogen dRVVT Confirm Interp Factor V Activity POC ABG pH POC ABG pCO2 POC ABG pO2 ABG pO2 ABG HCO3 ABG Base Excess ABG Hemoglobin Oxyhemoglobin Sodium Potassium Chloride Carbon Dioxide BUN Creatinine Glucose POC Glucose 146 H 112 H Lactic Acid Calcium Phosphorus Magnesium Direct Bilirubin AST ALT Alkaline Phosphatase Lactate Dehydrogenase Troponin T C-Reactive Protein Total Protein Albumin Prealbumin Triglycerides Cholesterol LDL Cholesterol Direct HDL Cholesterol Urine pH Urine WBC (Auto) Urine Creatinine Urine Total Protein Fluid Total Protein Vancomycin Trough Rheumatoid Factor Complement C4 Miscellaneous Test Crossmatch 1011/26/16 11/26/16 05:13 05:28 11:53 WBC RBC Hgb Hct MCV MCH MCHC RDW Plt Count Lymph % (Auto) [place] % (Auto) Lymph # [place] # Baso # Seg Neutrophils % Seg Neuts % (Manual) Lymphocytes % (Manual) Monocytes % (Manual) Eosinophils % (Manual) Basophils % (Manual) Nucleated RBC % Seg Neutrophils # Seg Neutrophils # Man Lymphocytes # (Manual) Monocytes # (Manual) Eosinophils # (Manual) Basophils # (Manual) PT INR Fibrinogen dRVVT Confirm Interp Factor V Activity POC ABG pH POC ABG pCO2 POC ABG pO2 ABG pO2 ABG HCO3 ABG Base Excess ABG Hemoglobin Oxyhemoglobin Sodium Potassium Chloride 97.8 L Carbon Dioxide BUN 37 H Creatinine 2.0 H Glucose 109 H POC Glucose 117 H 111 H Lactic Acid Calcium 7.9 L Phosphorus 1.80 L D Magnesium Direct Bilirubin AST ALT Alkaline Phosphatase Lactate Dehydrogenase Troponin T C-Reactive Protein Total Protein Albumin Prealbumin Triglycerides Cholesterol LDL Cholesterol Direct HDL Cholesterol Urine pH Urine WBC (Auto) Urine Creatinine Urine Total Protein Fluid Total Protein Vancomycin Trough Rheumatoid Factor Complement C4 Miscellaneous Test Crossmatch 11/26/16 11/27/16 11/27/16 17:14 04:50 06:02 WBC RBC Hgb Hct MCV MCH MCHC RDW Plt Count Lymph % (Auto) [place] % (Auto) Lymph # [place] # Baso # Seg Neutrophils % Seg Neuts % (Manual) Lymphocytes % (Manual) Monocytes % (Manual) Eosinophils % (Manual) Basophils % (Manual) Nucleated RBC % Seg Neutrophils # Seg Neutrophils # Man Lymphocytes # (Manual) Monocytes # (Manual) Eosinophils # (Manual) Basophils # (Manual) PT INR Fibrinogen dRVVT Confirm Interp Factor V Activity POC ABG pH POC ABG pCO2 POC ABG pO2 ABG pO2 75.2 L ABG HCO3 26.4 H ABG Base Excess ABG Hemoglobin 7.6 L Oxyhemoglobin 94.8 L Sodium Potassium Chloride Carbon Dioxide BUN 49 H Creatinine 2.3 H Glucose POC Glucose 115 H Lactic Acid Calcium Phosphorus 1.50 L Magnesium Direct Bilirubin AST ALT Alkaline Phosphatase Lactate Dehydrogenase Troponin T C-Reactive Protein Total Protein Albumin Prealbumin Triglycerides Cholesterol LDL Cholesterol Direct HDL Cholesterol Urine pH Urine WBC (Auto) Urine Creatinine Urine Total Protein Fluid Total Protein Vancomycin Trough Rheumatoid Factor Complement C4 Miscellaneous Test Crossmatch 10/10/0611/27/16 11/27/16 06:02 11:25 17:25 WBC 11.6 H RBC 2.75 L Hgb 7.6 L Hct 23.4 L MCV MCH MCHC RDW 16.5 H Plt Count Lymph % (Auto) [place] % (Auto) Lymph # [place] # Baso # Seg Neutrophils % Seg Neuts % (Manual) Lymphocytes % (Manual) Monocytes % (Manual) Eosinophils % (Manual) Basophils % (Manual) Nucleated RBC % Seg Neutrophils # Seg Neutrophils # Man Lymphocytes # (Manual) Monocytes # (Manual) Eosinophils # (Manual) Basophils # (Manual) PT INR Fibrinogen dRVVT Confirm Interp Factor V Activity POC ABG pH POC ABG pCO2 POC ABG pO2 ABG pO2 ABG HCO3 ABG Base Excess ABG Hemoglobin Oxyhemoglobin Sodium Potassium Chloride Carbon Dioxide BUN Creatinine Glucose POC Glucose 114 H 126 H Lactic Acid Calcium Phosphorus Magnesium Direct Bilirubin AST ALT Alkaline Phosphatase Lactate Dehydrogenase Troponin T C-Reactive Protein Total Protein Albumin Prealbumin Triglycerides Cholesterol LDL Cholesterol Direct HDL Cholesterol Urine pH Urine WBC (Auto) Urine Creatinine Urine Total Protein Fluid Total Protein Vancomycin Trough Rheumatoid Factor Complement C4 Miscellaneous Test Crossmatch 11/28/16 11/28/16 11/28/16 04:45 05:33 05:44 WBC RBC Hgb Hct MCV MCH MCHC RDW Plt Count Lymph % (Auto) [place] % (Auto) Lymph # [place] # Baso # Seg Neutrophils % Seg Neuts % (Manual) Lymphocytes % (Manual) Monocytes % (Manual) Eosinophils % (Manual) Basophils % (Manual) Nucleated RBC % Seg Neutrophils # Seg Neutrophils # Man Lymphocytes # (Manual) Monocytes # (Manual) Eosinophils # (Manual) Basophils # (Manual) PT INR Fibrinogen dRVVT Confirm Interp Factor V Activity POC ABG pH POC ABG pCO2 POC ABG pO2 ABG pO2 99.3 H ABG HCO3 ABG Base Excess ABG Hemoglobin 8.3 L Oxyhemoglobin Sodium Potassium Chloride Carbon Dioxide BUN 63 H Creatinine 2.4 H Glucose 102 H POC Glucose 108 H Lactic Acid Calcium Phosphorus 1.80 L Magnesium Direct Bilirubin AST ALT Alkaline Phosphatase Lactate Dehydrogenase Troponin T C-Reactive Protein Total Protein Albumin Prealbumin Triglycerides Cholesterol LDL Cholesterol Direct HDL Cholesterol Urine pH Urine WBC (Auto) Urine Creatinine Urine Total Protein Fluid Total Protein Vancomycin Trough Rheumatoid Factor Complement C4 Miscellaneous Test Crossmatch 11/28/16 11/28/16 11/28/16 12:31 16:09 23:46 WBC RBC Hgb Hct MCV MCH MCHC RDW Plt Count Lymph % (Auto) [place] % (Auto) Lymph # [place] # Baso # Seg Neutrophils % Seg Neuts % (Manual) Lymphocytes % (Manual) Monocytes % (Manual) Eosinophils % (Manual) Basophils % (Manual) Nucleated RBC % Seg Neutrophils # Seg Neutrophils # Man Lymphocytes # (Manual) Monocytes # (Manual) Eosinophils # (Manual) Basophils # (Manual) PT INR Fibrinogen dRVVT Confirm Interp Factor V Activity POC ABG pH POC ABG pCO2 POC ABG pO2 ABG pO2 ABG HCO3 ABG Base Excess ABG Hemoglobin Oxyhemoglobin Sodium Potassium Chloride Carbon Dioxide BUN Creatinine Glucose POC Glucose 126 H 111 H 119 H Lactic Acid Calcium Phosphorus Magnesium Direct Bilirubin AST ALT Alkaline Phosphatase Lactate Dehydrogenase Troponin T C-Reactive Protein Total Protein Albumin Prealbumin Triglycerides Cholesterol LDL Cholesterol Direct HDL Cholesterol Urine pH Urine WBC (Auto) Urine Creatinine Urine Total Protein Fluid Total Protein Vancomycin Trough Rheumatoid Factor Complement C4 Miscellaneous Test Crossmatch 11/29/16 11/29/16 11/29/16 03:33 04:52 05:10 WBC RBC Hgb Hct MCV MCH MCHC RDW Plt Count Lymph % (Auto) [place] % (Auto) Lymph # [place] # Baso # Seg Neutrophils % Seg Neuts % (Manual) Lymphocytes % (Manual) Monocytes % (Manual) Eosinophils % (Manual) Basophils % (Manual) Nucleated RBC % Seg Neutrophils # Seg Neutrophils # Man Lymphocytes # (Manual) Monocytes # (Manual) Eosinophils # (Manual) Basophils # (Manual) PT INR Fibrinogen dRVVT Confirm Interp Factor V Activity POC ABG pH POC ABG pCO2 POC ABG pO2 ABG pO2 ABG HCO3 ABG Base Excess ABG Hemoglobin 7.0 L Oxyhemoglobin 94.9 L Sodium Potassium Chloride Carbon Dioxide BUN 73 H Creatinine 2.7 H Glucose POC Glucose 108 H Lactic Acid Calcium Phosphorus Magnesium Direct Bilirubin AST ALT Alkaline Phosphatase Lactate Dehydrogenase Troponin T C-Reactive Protein Total Protein Albumin Prealbumin Triglycerides Cholesterol LDL Cholesterol Direct HDL Cholesterol Urine pH Urine WBC (Auto) Urine Creatinine Urine Total Protein Fluid Total Protein Vancomycin Trough Rheumatoid Factor Complement C4 Miscellaneous Test Crossmatch 11/29/16 11/29/16 11/29/16 12:16 18:05 23:46 WBC RBC Hgb Hct MCV MCH MCHC RDW Plt Count Lymph % (Auto) [place] % (Auto) Lymph # [place] # Baso # Seg Neutrophils % Seg Neuts % (Manual) Lymphocytes % (Manual) Monocytes % (Manual) Eosinophils % (Manual) Basophils % (Manual) Nucleated RBC % Seg Neutrophils # Seg Neutrophils # Man Lymphocytes # (Manual) Monocytes # (Manual) Eosinophils # (Manual) Basophils # (Manual) PT INR Fibrinogen dRVVT Confirm Interp Factor V Activity POC ABG pH POC ABG pCO2 POC ABG pO2 ABG pO2 ABG HCO3 ABG Base Excess ABG Hemoglobin Oxyhemoglobin Sodium Potassium Chloride Carbon Dioxide BUN Creatinine Glucose POC Glucose 133 H 146 H 141 H Lactic Acid Calcium Phosphorus Magnesium Direct Bilirubin AST ALT Alkaline Phosphatase Lactate Dehydrogenase Troponin T C-Reactive Protein Total Protein Albumin Prealbumin Triglycerides Cholesterol LDL Cholesterol Direct HDL Cholesterol Urine pH Urine WBC (Auto) Urine Creatinine Urine Total Protein Fluid Total Protein Vancomycin Trough Rheumatoid Factor Complement C4 Miscellaneous Test Crossmatch 11/30/16 11/30/16 11/30/16 04:17 04:17 04:32 WBC 12.0 H RBC 2.80 L Hgb 7.8 L Hct 23.6 L MCV MCH MCHC RDW 16.6 H Plt Count Lymph % (Auto) [place] % (Auto) 11.3 H Lymph # [place] # 1.4 H Baso # Seg Neutrophils % Seg Neuts % (Manual) Lymphocytes % (Manual) Monocytes % (Manual) Eosinophils % (Manual) Basophils % (Manual) Nucleated RBC % Seg Neutrophils # 8.2 H Seg Neutrophils # Man Lymphocytes # (Manual) Monocytes # (Manual) Eosinophils # (Manual) Basophils # (Manual) PT INR Fibrinogen dRVVT Confirm Interp Factor V Activity POC ABG pH POC ABG pCO2 POC ABG pO2 ABG pO2 ABG HCO3 ABG Base Excess ABG Hemoglobin Oxyhemoglobin Sodium 169 H* D Potassium 5.1 H Chloride 121.5 H Carbon Dioxide BUN 34 H Creatinine 1.3 H D Glucose 133 H POC Glucose 131 H Lactic Acid Calcium 10.3 H Phosphorus Magnesium Direct Bilirubin AST ALT Alkaline Phosphatase Lactate Dehydrogenase Troponin T C-Reactive Protein Total Protein Albumin Prealbumin Triglycerides Cholesterol LDL Cholesterol Direct HDL Cholesterol Urine pH Urine WBC (Auto) Urine Creatinine Urine Total Protein Fluid Total Protein Vancomycin Trough Rheumatoid Factor Complement C4 Miscellaneous Test Crossmatch 11/30/16 11/30/16 11/30/16 05:45 11:10 17:26 WBC RBC Hgb Hct MCV MCH MCHC RDW Plt Count Lymph % (Auto) [place] % (Auto) Lymph # [place] # Baso # Seg Neutrophils % Seg Neuts % (Manual) Lymphocytes % (Manual) Monocytes % (Manual) Eosinophils % (Manual) Basophils % (Manual) Nucleated RBC % Seg Neutrophils # Seg Neutrophils # Man Lymphocytes # (Manual) Monocytes # (Manual) Eosinophils # (Manual) Basophils # (Manual) PT INR Fibrinogen dRVVT Confirm Interp Factor V Activity POC ABG pH POC ABG pCO2 POC ABG pO2 ABG pO2 ABG HCO3 ABG Base Excess ABG Hemoglobin Oxyhemoglobin Sodium Potassium Chloride Carbon Dioxide BUN 45 H Creatinine 1.6 H Glucose 131 H POC Glucose 146 H 134 H Lactic Acid Calcium Phosphorus Magnesium Direct Bilirubin AST ALT Alkaline Phosphatase Lactate Dehydrogenase Troponin T C-Reactive Protein Total Protein Albumin Prealbumin Triglycerides Cholesterol LDL Cholesterol Direct HDL Cholesterol Urine pH Urine WBC (Auto) Urine Creatinine Urine Total Protein Fluid Total Protein Vancomycin Trough Rheumatoid Factor Complement C4 Miscellaneous Test Crossmatch 11/30/16 12/01/16 12/01/16 23:35 00:06 03:35 WBC RBC Hgb Hct MCV MCH MCHC RDW Plt Count Lymph % (Auto) [place] % (Auto) Lymph # [place] # Baso # Seg Neutrophils % Seg Neuts % (Manual) Lymphocytes % (Manual) Monocytes % (Manual) Eosinophils % (Manual) Basophils % (Manual) Nucleated RBC % Seg Neutrophils # Seg Neutrophils # Man Lymphocytes # (Manual) Monocytes # (Manual) Eosinophils # (Manual) Basophils # (Manual) PT INR Fibrinogen dRVVT Confirm Interp Factor V Activity POC ABG pH POC ABG pCO2 POC ABG pO2 ABG pO2 ABG HCO3 ABG Base Excess ABG Hemoglobin 6.9 L Oxyhemoglobin Sodium Potassium Chloride Carbon Dioxide BUN 58 H Creatinine 1.8 H Glucose 146 H POC Glucose 151 H Lactic Acid Calcium Phosphorus Magnesium Direct Bilirubin AST ALT Alkaline Phosphatase Lactate Dehydrogenase Troponin T C-Reactive Protein Total Protein Albumin Prealbumin Triglycerides Cholesterol LDL Cholesterol Direct HDL Cholesterol Urine pH Urine WBC (Auto) Urine Creatinine Urine Total Protein Fluid Total Protein Vancomycin Trough Rheumatoid Factor Complement C4 Miscellaneous Test Crossmatch 12/01/16 12/01/16 12/01/16 03:35 05:47 11:52 WBC 12.3 H RBC 2.82 L Hgb 7.8 L Hct 23.7 L MCV MCH MCHC RDW 16.7 H Plt Count Lymph % (Auto) [place] % (Auto) 9.8 H Lymph # [place] # 1.2 H Baso # Seg Neutrophils % Seg Neuts % (Manual) Lymphocytes % (Manual) Monocytes % (Manual) Eosinophils % (Manual) Basophils % (Manual) Nucleated RBC % Seg Neutrophils # 8.4 H Seg Neutrophils # Man Lymphocytes # (Manual) Monocytes # (Manual) Eosinophils # (Manual) Basophils # (Manual) PT INR Fibrinogen dRVVT Confirm Interp Factor V Activity POC ABG pH POC ABG pCO2 POC ABG pO2 ABG pO2 ABG HCO3 ABG Base Excess ABG Hemoglobin Oxyhemoglobin Sodium Potassium Chloride Carbon Dioxide BUN Creatinine Glucose POC Glucose 152 H 152 H Lactic Acid Calcium Phosphorus Magnesium Direct Bilirubin AST ALT Alkaline Phosphatase Lactate Dehydrogenase Troponin T C-Reactive Protein Total Protein Albumin Prealbumin Triglycerides Cholesterol LDL Cholesterol Direct HDL Cholesterol Urine pH Urine WBC (Auto) Urine Creatinine Urine Total Protein Fluid Total Protein Vancomycin Trough Rheumatoid Factor Complement C4 Miscellaneous Test Crossmatch 12/01/16 12/01/16 12/02/16 17:40 23:41 05:00 WBC RBC Hgb Hct MCV MCH MCHC RDW Plt Count Lymph % (Auto) [place] % (Auto) Lymph # [place] # Baso # Seg Neutrophils % Seg Neuts % (Manual) Lymphocytes % (Manual) Monocytes % (Manual) Eosinophils % (Manual) Basophils % (Manual) Nucleated RBC % Seg Neutrophils # Seg Neutrophils # Man Lymphocytes # (Manual) Monocytes # (Manual) Eosinophils # (Manual) Basophils # (Manual) PT INR Fibrinogen dRVVT Confirm Interp Factor V Activity POC ABG pH POC ABG pCO2 POC ABG pO2 ABG pO2 ABG HCO3 ABG Base Excess ABG Hemoglobin Oxyhemoglobin Sodium Potassium Chloride Carbon Dioxide BUN 45 H Creatinine Glucose 115 H POC Glucose 140 H 144 H Lactic Acid Calcium Phosphorus Magnesium Direct Bilirubin AST ALT Alkaline Phosphatase Lactate Dehydrogenase Troponin T C-Reactive Protein Total Protein Albumin Prealbumin Triglycerides Cholesterol LDL Cholesterol Direct HDL Cholesterol Urine pH Urine WBC (Auto) Urine Creatinine Urine Total Protein Fluid Total Protein Vancomycin Trough Rheumatoid Factor Complement C4 Miscellaneous Test Crossmatch 12/02/16 12/02/16 12/02/16 05:31 11:20 17:38 WBC RBC Hgb Hct MCV MCH MCHC RDW Plt Count Lymph % (Auto) [place] % (Auto) Lymph # [place] # Baso # Seg Neutrophils % Seg Neuts % (Manual) Lymphocytes % (Manual) Monocytes % (Manual) Eosinophils % (Manual) Basophils % (Manual) Nucleated RBC % Seg Neutrophils # Seg Neutrophils # Man Lymphocytes # (Manual) Monocytes # (Manual) Eosinophils # (Manual) Basophils # (Manual) PT INR Fibrinogen dRVVT Confirm Interp Factor V Activity POC ABG pH POC ABG pCO2 POC ABG pO2 ABG pO2 ABG HCO3 ABG Base Excess ABG Hemoglobin Oxyhemoglobin Sodium Potassium Chloride Carbon Dioxide BUN Creatinine Glucose POC Glucose 136 H 177 H 139 H Lactic Acid Calcium Phosphorus Magnesium Direct Bilirubin AST ALT Alkaline Phosphatase Lactate Dehydrogenase Troponin T C-Reactive Protein Total Protein Albumin Prealbumin Triglycerides Cholesterol LDL Cholesterol Direct HDL Cholesterol Urine pH Urine WBC (Auto) Urine Creatinine Urine Total Protein Fluid Total Protein Vancomycin Trough Rheumatoid Factor Complement C4 Miscellaneous Test Crossmatch 12/02/16 12/03/16 12/03/16 23:43 04:00 04:00 WBC 20.4 H RBC 2.74 L Hgb 7.4 L Hct 23.6 L MCV MCH 27 L MCHC RDW 17.1 H Plt Count Lymph % (Auto) [place] % (Auto) Lymph # [place] # Baso # Seg Neutrophils % Seg Neuts % (Manual) 31.0 L Lymphocytes % (Manual) Monocytes % (Manual) Eosinophils % (Manual) Basophils % (Manual) Nucleated RBC % Seg Neutrophils # Seg Neutrophils # Man Lymphocytes # (Manual) Monocytes # (Manual) Eosinophils # (Manual) Basophils # (Manual) PT INR Fibrinogen dRVVT Confirm Interp Factor V Activity POC ABG pH POC ABG pCO2 POC ABG pO2 ABG pO2 ABG HCO3 ABG Base Excess ABG Hemoglobin Oxyhemoglobin Sodium Potassium Chloride Carbon Dioxide BUN 61 H Creatinine 1.6 H Glucose 119 H POC Glucose 158 H Lactic Acid Calcium Phosphorus Magnesium Direct Bilirubin AST ALT Alkaline Phosphatase Lactate Dehydrogenase Troponin T C-Reactive Protein Total Protein Albumin Prealbumin Triglycerides Cholesterol LDL Cholesterol Direct HDL Cholesterol Urine pH Urine WBC (Auto) Urine Creatinine Urine Total Protein Fluid Total Protein Vancomycin Trough Rheumatoid Factor Complement C4 Miscellaneous Test Crossmatch 12/03/16 12/03/16 12/03/16 05:02 12:11 18:16 WBC RBC Hgb Hct MCV MCH MCHC RDW Plt Count Lymph % (Auto) [place] % (Auto) Lymph # [place] # Baso # Seg Neutrophils % Seg Neuts % (Manual) Lymphocytes % (Manual) Monocytes % (Manual) Eosinophils % (Manual) Basophils % (Manual) Nucleated RBC % Seg Neutrophils # Seg Neutrophils # Man Lymphocytes # (Manual) Monocytes # (Manual) Eosinophils # (Manual) Basophils # (Manual) PT INR Fibrinogen dRVVT Confirm Interp Factor V Activity POC ABG pH POC ABG pCO2 POC ABG pO2 ABG pO2 ABG HCO3 ABG Base Excess ABG Hemoglobin Oxyhemoglobin Sodium Potassium Chloride Carbon Dioxide BUN Creatinine Glucose POC Glucose 146 H 157 H 124 H Lactic Acid Calcium Phosphorus Magnesium Direct Bilirubin AST ALT Alkaline Phosphatase Lactate Dehydrogenase Troponin T C-Reactive Protein Total Protein Albumin Prealbumin Triglycerides Cholesterol LDL Cholesterol Direct HDL Cholesterol Urine pH Urine WBC (Auto) Urine Creatinine Urine Total Protein Fluid Total Protein Vancomycin Trough Rheumatoid Factor Complement C4 Miscellaneous Test Crossmatch 12/03/16 12/04/16 12/04/16 23:41 04:00 04:45 WBC RBC Hgb Hct MCV MCH MCHC RDW Plt Count Lymph % (Auto) [place] % (Auto) Lymph # [place] # Baso # Seg Neutrophils % Seg Neuts % (Manual) Lymphocytes % (Manual) Monocytes % (Manual) Eosinophils % (Manual) Basophils % (Manual) Nucleated RBC % Seg Neutrophils # Seg Neutrophils # Man Lymphocytes # (Manual) Monocytes # (Manual) Eosinophils # (Manual) Basophils # (Manual) PT INR Fibrinogen dRVVT Confirm Interp Factor V Activity POC ABG pH POC ABG pCO2 POC ABG pO2 ABG pO2 ABG HCO3 ABG Base Excess ABG Hemoglobin Oxyhemoglobin Sodium Potassium Chloride Carbon Dioxide BUN 76 H Creatinine 1.6 H Glucose POC Glucose 130 H 136 H Lactic Acid Calcium Phosphorus Magnesium Direct Bilirubin AST ALT Alkaline Phosphatase 155 H Lactate Dehydrogenase Troponin T C-Reactive Protein Total Protein 5.5 L Albumin 1.5 L Prealbumin Triglycerides Cholesterol LDL Cholesterol Direct HDL Cholesterol Urine pH Urine WBC (Auto) Urine Creatinine Urine Total Protein Fluid Total Protein Vancomycin Trough Rheumatoid Factor Complement C4 Miscellaneous Test Crossmatch 12/04/16 12/04/16 12/05/16 12:08 17:23 00:10 WBC RBC Hgb Hct MCV MCH MCHC RDW Plt Count Lymph % (Auto) [place] % (Auto) Lymph # [place] # Baso # Seg Neutrophils % Seg Neuts % (Manual) Lymphocytes % (Manual) Monocytes % (Manual) Eosinophils % (Manual) Basophils % (Manual) Nucleated RBC % Seg Neutrophils # Seg Neutrophils # Man Lymphocytes # (Manual) Monocytes # (Manual) Eosinophils # (Manual) Basophils # (Manual) PT INR Fibrinogen dRVVT Confirm Interp Factor V Activity POC ABG pH POC ABG pCO2 POC ABG pO2 ABG pO2 ABG HCO3 ABG Base Excess ABG Hemoglobin Oxyhemoglobin Sodium Potassium Chloride Carbon Dioxide BUN Creatinine Glucose POC Glucose 114 H 129 H 124 H Lactic Acid Calcium Phosphorus Magnesium Direct Bilirubin AST ALT Alkaline Phosphatase Lactate Dehydrogenase Troponin T C-Reactive Protein Total Protein Albumin Prealbumin Triglycerides Cholesterol LDL Cholesterol Direct HDL Cholesterol Urine pH Urine WBC (Auto) Urine Creatinine Urine Total Protein Fluid Total Protein Vancomycin Trough Rheumatoid Factor Complement C4 Miscellaneous Test Crossmatch 12/05/16 12/05/16 12/05/16 05:00 05:00 05:18 WBC RBC Hgb Hct MCV MCH MCHC RDW Plt Count Lymph % (Auto) [place] % (Auto) Lymph # [place] # Baso # Seg Neutrophils % Seg Neuts % (Manual) Lymphocytes % (Manual) Monocytes % (Manual) Eosinophils % (Manual) Basophils % (Manual) Nucleated RBC % Seg Neutrophils # Seg Neutrophils # Man Lymphocytes # (Manual) Monocytes # (Manual) Eosinophils # (Manual) Basophils # (Manual) PT INR Fibrinogen dRVVT Confirm Interp Factor V Activity POC ABG pH POC ABG pCO2 POC ABG pO2 ABG pO2 ABG HCO3 ABG Base Excess ABG Hemoglobin Oxyhemoglobin Sodium Potassium Chloride Carbon Dioxide 21 L BUN 85 H Creatinine 1.9 H Glucose 131 H POC Glucose 154 H Lactic Acid Calcium Phosphorus Magnesium Direct Bilirubin AST ALT Alkaline Phosphatase Lactate Dehydrogenase Troponin T C-Reactive Protein 19.30 H Total Protein Albumin Prealbumin Triglycerides Cholesterol LDL Cholesterol Direct HDL Cholesterol Urine pH Urine WBC (Auto) Urine Creatinine Urine Total Protein Fluid Total Protein Vancomycin Trough Rheumatoid Factor Complement C4 Miscellaneous Test Crossmatch 12/05/16 12/05/16 12/05/16 11:43 17:46 23:25 WBC RBC Hgb Hct MCV MCH MCHC RDW Plt Count Lymph % (Auto) [place] % (Auto) Lymph # [place] # Baso # Seg Neutrophils % Seg Neuts % (Manual) Lymphocytes % (Manual) Monocytes % (Manual) Eosinophils % (Manual) Basophils % (Manual) Nucleated RBC % Seg Neutrophils # Seg Neutrophils # Man Lymphocytes # (Manual) Monocytes # (Manual) Eosinophils # (Manual) Basophils # (Manual) PT INR Fibrinogen dRVVT Confirm Interp Factor V Activity POC ABG pH POC ABG pCO2 POC ABG pO2 ABG pO2 ABG HCO3 ABG Base Excess ABG Hemoglobin Oxyhemoglobin Sodium Potassium Chloride Carbon Dioxide BUN Creatinine Glucose POC Glucose 117 H 113 H 111 H Lactic Acid Calcium Phosphorus Magnesium Direct Bilirubin AST ALT Alkaline Phosphatase Lactate Dehydrogenase Troponin T C-Reactive Protein Total Protein Albumin Prealbumin Triglycerides Cholesterol LDL Cholesterol Direct HDL Cholesterol Urine pH Urine WBC (Auto) Urine Creatinine Urine Total Protein Fluid Total Protein Vancomycin Trough Rheumatoid Factor Complement C4 Miscellaneous Test Crossmatch 12/05/16 12/06/16 12/06/16 Unknown 04:58 06:00 WBC RBC Hgb Hct MCV MCH MCHC RDW Plt Count Lymph % (Auto) [place] % (Auto) Lymph # [place] # Baso # Seg Neutrophils % Seg Neuts % (Manual) Lymphocytes % (Manual) Monocytes % (Manual) Eosinophils % (Manual) Basophils % (Manual) Nucleated RBC % Seg Neutrophils # Seg Neutrophils # Man Lymphocytes # (Manual) Monocytes # (Manual) Eosinophils # (Manual) Basophils # (Manual) PT INR Fibrinogen dRVVT Confirm Interp Factor V Activity POC ABG pH POC ABG pCO2 POC ABG pO2 ABG pO2 75.2 L ABG HCO3 ABG Base Excess -3.4 L ABG Hemoglobin 7.4 L Oxyhemoglobin 94.5 L Sodium Potassium Chloride Carbon Dioxide 20 L BUN 99 H Creatinine 2.1 H Glucose 126 H POC Glucose 145 H Lactic Acid Calcium Phosphorus 4.80 H Magnesium Direct Bilirubin AST ALT Alkaline Phosphatase Lactate Dehydrogenase Troponin T C-Reactive Protein Total Protein Albumin Prealbumin Triglycerides Cholesterol LDL Cholesterol Direct HDL Cholesterol Urine pH Urine WBC (Auto) Urine Creatinine Urine Total Protein Fluid Total Protein Vancomycin Trough Rheumatoid Factor Complement C4 Miscellaneous Test Crossmatch 12/06/16 12/06/16 12/06/16 06:46 11:54 17:55 WBC RBC Hgb 8.3 L Hct 26.4 L MCV MCH MCHC RDW Plt Count Lymph % (Auto) [place] % (Auto) Lymph # [place] # Baso # Seg Neutrophils % Seg Neuts % (Manual) Lymphocytes % (Manual) Monocytes % (Manual) Eosinophils % (Manual) Basophils % (Manual) Nucleated RBC % Seg Neutrophils # Seg Neutrophils # Man Lymphocytes # (Manual) Monocytes # (Manual) Eosinophils # (Manual) Basophils # (Manual) PT INR Fibrinogen dRVVT Confirm Interp Factor V Activity POC ABG pH POC ABG pCO2 POC ABG pO2 ABG pO2 ABG HCO3 ABG Base Excess ABG Hemoglobin Oxyhemoglobin Sodium Potassium Chloride Carbon Dioxide BUN Creatinine Glucose POC Glucose 126 H 157 H Lactic Acid Calcium Phosphorus Magnesium Direct Bilirubin AST ALT Alkaline Phosphatase Lactate Dehydrogenase Troponin T C-Reactive Protein Total Protein Albumin Prealbumin Triglycerides Cholesterol LDL Cholesterol Direct HDL Cholesterol Urine pH Urine WBC (Auto) Urine Creatinine Urine Total Protein Fluid Total Protein Vancomycin Trough Rheumatoid Factor Complement C4 Miscellaneous Test Crossmatch 12/06/16 12/07/16 12/07/16 23:59 05:34 06:30 WBC RBC Hgb Hct MCV MCH MCHC RDW Plt Count Lymph % (Auto) [place] % (Auto) Lymph # [place] # Baso # Seg Neutrophils % Seg Neuts % (Manual) Lymphocytes % (Manual) Monocytes % (Manual) Eosinophils % (Manual) Basophils % (Manual) Nucleated RBC % Seg Neutrophils # Seg Neutrophils # Man Lymphocytes # (Manual) Monocytes # (Manual) Eosinophils # (Manual) Basophils # (Manual) PT INR Fibrinogen dRVVT Confirm Interp Factor V Activity POC ABG pH POC ABG pCO2 POC ABG pO2 ABG pO2 ABG HCO3 ABG Base Excess ABG Hemoglobin Oxyhemoglobin Sodium Potassium Chloride Carbon Dioxide BUN 67 H Creatinine 1.4 H Glucose 126 H POC Glucose 129 H 129 H Lactic Acid Calcium Phosphorus Magnesium Direct Bilirubin AST ALT Alkaline Phosphatase Lactate Dehydrogenase Troponin T C-Reactive Protein Total Protein Albumin Prealbumin Triglycerides Cholesterol LDL Cholesterol Direct HDL Cholesterol Urine pH Urine WBC (Auto) Urine Creatinine Urine Total Protein Fluid Total Protein Vancomycin Trough Rheumatoid Factor Complement C4 Miscellaneous Test Crossmatch 12/07/16 12/07/16 12/07/16 06:30 08:00 09:45 WBC 18.8 H RBC 2.52 L Hgb 6.9 L 6.8 L Hct 21.2 L 21.1 L MCV MCH 27 L MCHC RDW 18.0 H Plt Count Lymph % (Auto) [place] % (Auto) 9.9 H Lymph # [place] # 1.9 H Baso # Seg Neutrophils % 71.8 H Seg Neuts % (Manual) Lymphocytes % (Manual) Monocytes % (Manual) Eosinophils % (Manual) Basophils % (Manual) Nucleated RBC % Seg Neutrophils # 13.5 H Seg Neutrophils # Man Lymphocytes # (Manual) Monocytes # (Manual) Eosinophils # (Manual) Basophils # (Manual) PT INR Fibrinogen dRVVT Confirm Interp Factor V Activity POC ABG pH POC ABG pCO2 POC ABG pO2 ABG pO2 ABG HCO3 ABG Base Excess ABG Hemoglobin Oxyhemoglobin Sodium Potassium Chloride Carbon Dioxide BUN Creatinine Glucose POC Glucose Lactic Acid Calcium Phosphorus Magnesium Direct Bilirubin AST ALT Alkaline Phosphatase Lactate Dehydrogenase Troponin T C-Reactive Protein Total Protein Albumin Prealbumin Triglycerides Cholesterol LDL Cholesterol Direct HDL Cholesterol Urine pH Urine WBC (Auto) Urine Creatinine Urine Total Protein Fluid Total Protein Vancomycin Trough Rheumatoid Factor Complement C4 Miscellaneous Test Crossmatch See Detail 12/07/16 12/07/16 12/07/16 11:44 18:19 23:59 WBC RBC Hgb Hct MCV MCH MCHC RDW Plt Count Lymph % (Auto) [place] % (Auto) Lymph # [place] # Baso # Seg Neutrophils % Seg Neuts % (Manual) Lymphocytes % (Manual) Monocytes % (Manual) Eosinophils % (Manual) Basophils % (Manual) Nucleated RBC % Seg Neutrophils # Seg Neutrophils # Man Lymphocytes # (Manual) Monocytes # (Manual) Eosinophils # (Manual) Basophils # (Manual) PT INR Fibrinogen dRVVT Confirm Interp Factor V Activity POC ABG pH POC ABG pCO2 POC ABG pO2 ABG pO2 ABG HCO3 ABG Base Excess ABG Hemoglobin Oxyhemoglobin Sodium Potassium Chloride Carbon Dioxide BUN Creatinine Glucose POC Glucose 137 H 138 H 133 H Lactic Acid Calcium Phosphorus Magnesium Direct Bilirubin AST ALT Alkaline Phosphatase Lactate Dehydrogenase Troponin T C-Reactive Protein Total Protein Albumin Prealbumin Triglycerides Cholesterol LDL Cholesterol Direct HDL Cholesterol Urine pH Urine WBC (Auto) Urine Creatinine Urine Total Protein Fluid Total Protein Vancomycin Trough Rheumatoid Factor Complement C4 Miscellaneous Test Crossmatch 12/08/16 12/08/16 12/08/16 05:25 05:30 05:30 WBC 23.8 H RBC 2.88 L Hgb 8.1 L Hct 24.3 L MCV MCH MCHC RDW 16.7 H Plt Count Lymph % (Auto) [place] % (Auto) Lymph # [place] # Baso # Seg Neutrophils % Seg Neuts % (Manual) 76.0 H Lymphocytes % (Manual) 9.0 L Monocytes % (Manual) 9.0 H Eosinophils % (Manual) Basophils % (Manual) Nucleated RBC % Seg Neutrophils # Seg Neutrophils # Man 18.1 H Lymphocytes # (Manual) Monocytes # (Manual) 2.1 H Eosinophils # (Manual) Basophils # (Manual) PT INR Fibrinogen dRVVT Confirm Interp Factor V Activity POC ABG pH POC ABG pCO2 POC ABG pO2 ABG pO2 ABG HCO3 ABG Base Excess ABG Hemoglobin Oxyhemoglobin Sodium Potassium Chloride Carbon Dioxide 21 L BUN 76 H Creatinine 1.6 H Glucose 133 H POC Glucose 177 H Lactic Acid Calcium Phosphorus Magnesium Direct Bilirubin AST ALT Alkaline Phosphatase Lactate Dehydrogenase Troponin T C-Reactive Protein Total Protein Albumin Prealbumin Triglycerides Cholesterol LDL Cholesterol Direct HDL Cholesterol Urine pH Urine WBC (Auto) Urine Creatinine Urine Total Protein Fluid Total Protein Vancomycin Trough Rheumatoid Factor Complement C4 Miscellaneous Test Crossmatch 12/08/16 12/08/16 12/09/16 11:45 18:00 00:00 WBC RBC Hgb Hct MCV MCH MCHC RDW Plt Count Lymph % (Auto) [place] % (Auto) Lymph # [place] # Baso # Seg Neutrophils % Seg Neuts % (Manual) Lymphocytes % (Manual) Monocytes % (Manual) Eosinophils % (Manual) Basophils % (Manual) Nucleated RBC % Seg Neutrophils # Seg Neutrophils # Man Lymphocytes # (Manual) Monocytes # (Manual) Eosinophils # (Manual) Basophils # (Manual) PT INR Fibrinogen dRVVT Confirm Interp Factor V Activity POC ABG pH POC ABG pCO2 POC ABG pO2 ABG pO2 ABG HCO3 ABG Base Excess ABG Hemoglobin Oxyhemoglobin Sodium Potassium Chloride Carbon Dioxide BUN Creatinine Glucose POC Glucose 163 H 123 H 137 H Lactic Acid Calcium Phosphorus Magnesium Direct Bilirubin AST ALT Alkaline Phosphatase Lactate Dehydrogenase Troponin T C-Reactive Protein Total Protein Albumin Prealbumin Triglycerides Cholesterol LDL Cholesterol Direct HDL Cholesterol Urine pH Urine WBC (Auto) Urine Creatinine Urine Total Protein Fluid Total Protein Vancomycin Trough Rheumatoid Factor Complement C4 Miscellaneous Test Crossmatch 12/09/16 12/09/16 12/09/16 05:34 06:00 06:00 WBC 15.5 H RBC 2.87 L Hgb 8.0 L Hct 24.2 L MCV MCH MCHC RDW 17.2 H Plt Count Lymph % (Auto) [place] % (Auto) 11.6 H Lymph # [place] # 1.8 H Baso # Seg Neutrophils % 70.8 H Seg Neuts % (Manual) Lymphocytes % (Manual) Monocytes % (Manual) Eosinophils % (Manual) Basophils % (Manual) Nucleated RBC % Seg Neutrophils # 11.0 H Seg Neutrophils # Man Lymphocytes # (Manual) Monocytes # (Manual) Eosinophils # (Manual) Basophils # (Manual) PT INR Fibrinogen dRVVT Confirm Interp Factor V Activity POC ABG pH POC ABG pCO2 POC ABG pO2 ABG pO2 ABG HCO3 ABG Base Excess ABG Hemoglobin Oxyhemoglobin Sodium Potassium Chloride Carbon Dioxide BUN 51 H Creatinine Glucose 117 H POC Glucose 136 H Lactic Acid Calcium Phosphorus Magnesium Direct Bilirubin AST ALT Alkaline Phosphatase Lactate Dehydrogenase Troponin T C-Reactive Protein Total Protein Albumin Prealbumin Triglycerides Cholesterol LDL Cholesterol Direct HDL Cholesterol Urine pH Urine WBC (Auto) Urine Creatinine Urine Total Protein Fluid Total Protein Vancomycin Trough Rheumatoid Factor Complement C4 Miscellaneous Test Crossmatch 12/09/16 12/09/16 12/09/16 12:29 17:52 23:10 WBC RBC Hgb Hct MCV MCH MCHC RDW Plt Count Lymph % (Auto) [place] % (Auto) Lymph # [place] # Baso # Seg Neutrophils % Seg Neuts % (Manual) Lymphocytes % (Manual) Monocytes % (Manual) Eosinophils % (Manual) Basophils % (Manual) Nucleated RBC % Seg Neutrophils # Seg Neutrophils # Man Lymphocytes # (Manual) Monocytes # (Manual) Eosinophils # (Manual) Basophils # (Manual) PT INR Fibrinogen dRVVT Confirm Interp Factor V Activity POC ABG pH POC ABG pCO2 POC ABG pO2 ABG pO2 ABG HCO3 ABG Base Excess ABG Hemoglobin Oxyhemoglobin Sodium Potassium Chloride Carbon Dioxide BUN Creatinine Glucose POC Glucose 139 H 140 H 129 H Lactic Acid Calcium Phosphorus Magnesium Direct Bilirubin AST ALT Alkaline Phosphatase Lactate Dehydrogenase Troponin T C-Reactive Protein Total Protein Albumin Prealbumin Triglycerides Cholesterol LDL Cholesterol Direct HDL Cholesterol Urine pH Urine WBC (Auto) Urine Creatinine Urine Total Protein Fluid Total Protein Vancomycin Trough Rheumatoid Factor Complement C4 Miscellaneous Test Crossmatch 12/10/16 12/10/16 12/10/16 05:00 05:00 06:54 WBC 15.7 H RBC 2.87 L Hgb 8.2 L Hct 24.4 L MCV MCH MCHC RDW 17.2 H Plt Count Lymph % (Auto) [place] % (Auto) 8.3 H Lymph # [place] # 1.3 H Baso # Seg Neutrophils % 72.8 H Seg Neuts % (Manual) Lymphocytes % (Manual) Monocytes % (Manual) Eosinophils % (Manual) Basophils % (Manual) Nucleated RBC % Seg Neutrophils # 11.4 H Seg Neutrophils # Man Lymphocytes # (Manual) Monocytes # (Manual) Eosinophils # (Manual) Basophils # (Manual) PT INR Fibrinogen dRVVT Confirm Interp Factor V Activity POC ABG pH POC ABG pCO2 POC ABG pO2 ABG pO2 ABG HCO3 ABG Base Excess ABG Hemoglobin Oxyhemoglobin Sodium Potassium Chloride Carbon Dioxide BUN 64 H Creatinine 1.4 H Glucose 134 H POC Glucose 154 H Lactic Acid Calcium Phosphorus Magnesium Direct Bilirubin AST ALT Alkaline Phosphatase Lactate Dehydrogenase Troponin T C-Reactive Protein Total Protein Albumin Prealbumin Triglycerides Cholesterol LDL Cholesterol Direct HDL Cholesterol Urine pH Urine WBC (Auto) Urine Creatinine Urine Total Protein Fluid Total Protein Vancomycin Trough Rheumatoid Factor Complement C4 Miscellaneous Test Crossmatch 12/10/16 12/10/16 12/10/16 11:58 17:29 23:52 WBC RBC Hgb Hct MCV MCH MCHC RDW Plt Count Lymph % (Auto) [place] % (Auto) Lymph # [place] # Baso # Seg Neutrophils % Seg Neuts % (Manual) Lymphocytes % (Manual) Monocytes % (Manual) Eosinophils % (Manual) Basophils % (Manual) Nucleated RBC % Seg Neutrophils # Seg Neutrophils # Man Lymphocytes # (Manual) Monocytes # (Manual) Eosinophils # (Manual) Basophils # (Manual) PT INR Fibrinogen dRVVT Confirm Interp Factor V Activity POC ABG pH POC ABG pCO2 POC ABG pO2 ABG pO2 ABG HCO3 ABG Base Excess ABG Hemoglobin Oxyhemoglobin Sodium Potassium Chloride Carbon Dioxide BUN Creatinine Glucose POC Glucose 144 H 163 H 125 H Lactic Acid Calcium Phosphorus Magnesium Direct Bilirubin AST ALT Alkaline Phosphatase Lactate Dehydrogenase Troponin T C-Reactive Protein Total Protein Albumin Prealbumin Triglycerides Cholesterol LDL Cholesterol Direct HDL Cholesterol Urine pH Urine WBC (Auto) Urine Creatinine Urine Total Protein Fluid Total Protein Vancomycin Trough Rheumatoid Factor Complement C4 Miscellaneous Test Crossmatch 12/11/16 12/11/16 12/11/16 05:38 06:30 06:30 WBC 14.4 H RBC 2.76 L Hgb 7.7 L Hct 23.4 L MCV MCH MCHC RDW 17.2 H Plt Count Lymph % (Auto) [place] % (Auto) 8.8 H Lymph # [place] # 1.3 H Baso # Seg Neutrophils % 72.5 H Seg Neuts % (Manual) Lymphocytes % (Manual) Monocytes % (Manual) Eosinophils % (Manual) Basophils % (Manual) Nucleated RBC % Seg Neutrophils # 10.5 H Seg Neutrophils # Man Lymphocytes # (Manual) Monocytes # (Manual) Eosinophils # (Manual) Basophils # (Manual) PT INR Fibrinogen dRVVT Confirm Interp Factor V Activity POC ABG pH POC ABG pCO2 POC ABG pO2 ABG pO2 ABG HCO3 ABG Base Excess ABG Hemoglobin Oxyhemoglobin Sodium Potassium Chloride Carbon Dioxide BUN 43 H Creatinine Glucose 124 H POC Glucose 141 H Lactic Acid Calcium 8.3 L Phosphorus Magnesium 1.60 L Direct Bilirubin AST ALT Alkaline Phosphatase Lactate Dehydrogenase Troponin T C-Reactive Protein Total Protein Albumin Prealbumin Triglycerides Cholesterol LDL Cholesterol Direct HDL Cholesterol Urine pH Urine WBC (Auto) Urine Creatinine Urine Total Protein Fluid Total Protein Vancomycin Trough Rheumatoid Factor Complement C4 Miscellaneous Test Crossmatch 12/11/16 12/11/16 12/11/16 11:15 17:59 23:48 WBC RBC Hgb Hct MCV MCH MCHC RDW Plt Count Lymph % (Auto) [place] % (Auto) Lymph # [place] # Baso # Seg Neutrophils % Seg Neuts % (Manual) Lymphocytes % (Manual) Monocytes % (Manual) Eosinophils % (Manual) Basophils % (Manual) Nucleated RBC % Seg Neutrophils # Seg Neutrophils # Man Lymphocytes # (Manual) Monocytes # (Manual) Eosinophils # (Manual) Basophils # (Manual) PT INR Fibrinogen dRVVT Confirm Interp Factor V Activity POC ABG pH POC ABG pCO2 POC ABG pO2 ABG pO2 ABG HCO3 ABG Base Excess ABG Hemoglobin Oxyhemoglobin Sodium Potassium Chloride Carbon Dioxide BUN Creatinine Glucose POC Glucose 188 H 106 H 119 H Lactic Acid Calcium Phosphorus Magnesium Direct Bilirubin AST ALT Alkaline Phosphatase Lactate Dehydrogenase Troponin T C-Reactive Protein Total Protein Albumin Prealbumin Triglycerides Cholesterol LDL Cholesterol Direct HDL Cholesterol Urine pH Urine WBC (Auto) Urine Creatinine Urine Total Protein Fluid Total Protein Vancomycin Trough Rheumatoid Factor Complement C4 Miscellaneous Test Crossmatch 12/12/16 12/12/16 12/12/16 05:00 06:01 12:20 WBC 16.7 H RBC 2.87 L Hgb 8.0 L Hct 24.2 L MCV MCH MCHC RDW 17.6 H Plt Count Lymph % (Auto) [place] % (Auto) Lymph # [place] # 1.2 H Baso # Seg Neutrophils % 75.3 H Seg Neuts % (Manual) Lymphocytes % (Manual) Monocytes % (Manual) Eosinophils % (Manual) Basophils % (Manual) Nucleated RBC % Seg Neutrophils # 12.6 H Seg Neutrophils # Man Lymphocytes # (Manual) Monocytes # (Manual) Eosinophils # (Manual) Basophils # (Manual) PT INR Fibrinogen dRVVT Confirm Interp Factor V Activity POC ABG pH POC ABG pCO2 POC ABG pO2 ABG pO2 ABG HCO3 ABG Base Excess ABG Hemoglobin Oxyhemoglobin Sodium Potassium Chloride Carbon Dioxide BUN Creatinine Glucose POC Glucose 134 H 149 H Lactic Acid Calcium Phosphorus Magnesium Direct Bilirubin AST ALT Alkaline Phosphatase Lactate Dehydrogenase Troponin T C-Reactive Protein Total Protein Albumin Prealbumin Triglycerides Cholesterol LDL Cholesterol Direct HDL Cholesterol Urine pH Urine WBC (Auto) Urine Creatinine Urine Total Protein Fluid Total Protein Vancomycin Trough Rheumatoid Factor Complement C4 Miscellaneous Test Crossmatch 12/12/16 12/12/16 12/12/16 17:38 23:01 Unknown WBC RBC Hgb Hct MCV MCH MCHC RDW Plt Count Lymph % (Auto) [place] % (Auto) Lymph # [place] # Baso # Seg Neutrophils % Seg Neuts % (Manual) Lymphocytes % (Manual) Monocytes % (Manual) Eosinophils % (Manual) Basophils % (Manual) Nucleated RBC % Seg Neutrophils # Seg Neutrophils # Man Lymphocytes # (Manual) Monocytes # (Manual) Eosinophils # (Manual) Basophils # (Manual) PT INR Fibrinogen dRVVT Confirm Interp Factor V Activity POC ABG pH POC ABG pCO2 POC ABG pO2 ABG pO2 ABG HCO3 ABG Base Excess ABG Hemoglobin Oxyhemoglobin Sodium Potassium Chloride Carbon Dioxide BUN 60 H Creatinine 1.3 H Glucose 126 H POC Glucose 127 H 144 H Lactic Acid Calcium Phosphorus Magnesium Direct Bilirubin AST ALT Alkaline Phosphatase Lactate Dehydrogenase Troponin T C-Reactive Protein Total Protein Albumin Prealbumin Triglycerides Cholesterol LDL Cholesterol Direct HDL Cholesterol Urine pH Urine WBC (Auto) Urine Creatinine Urine Total Protein Fluid Total Protein Vancomycin Trough Rheumatoid Factor Complement C4 Miscellaneous Test Crossmatch 12/13/16 12/13/16 12/13/16 04:00 04:00 05:19 WBC 18.7 H RBC 2.89 L Hgb 8.3 L Hct 24.6 L MCV MCH MCHC RDW 17.5 H Plt Count Lymph % (Auto) [place] % (Auto) Lymph # [place] # 1.3 H Baso # Seg Neutrophils % 71.5 H Seg Neuts % (Manual) Lymphocytes % (Manual) Monocytes % (Manual) Eosinophils % (Manual) Basophils % (Manual) Nucleated RBC % Seg Neutrophils # 13.4 H Seg Neutrophils # Man Lymphocytes # (Manual) Monocytes # (Manual) Eosinophils # (Manual) Basophils # (Manual) PT INR Fibrinogen dRVVT Confirm Interp Factor V Activity POC ABG pH POC ABG pCO2 POC ABG pO2 ABG pO2 ABG HCO3 ABG Base Excess ABG Hemoglobin Oxyhemoglobin Sodium Potassium Chloride Carbon Dioxide BUN 73 H Creatinine 1.5 H Glucose 141 H POC Glucose 171 H Lactic Acid Calcium Phosphorus Magnesium Direct Bilirubin AST ALT Alkaline Phosphatase Lactate Dehydrogenase Troponin T C-Reactive Protein Total Protein Albumin Prealbumin Triglycerides Cholesterol LDL Cholesterol Direct HDL Cholesterol Urine pH Urine WBC (Auto) Urine Creatinine Urine Total Protein Fluid Total Protein Vancomycin Trough Rheumatoid Factor Complement C4 Miscellaneous Test Crossmatch 12/13/16 12/13/16 12/14/16 12:28 16:48 00:01 WBC RBC Hgb Hct MCV MCH MCHC RDW Plt Count Lymph % (Auto) [place] % (Auto) Lymph # [place] # Baso # Seg Neutrophils % Seg Neuts % (Manual) Lymphocytes % (Manual) Monocytes % (Manual) Eosinophils % (Manual) Basophils % (Manual) Nucleated RBC % Seg Neutrophils # Seg Neutrophils # Man Lymphocytes # (Manual) Monocytes # (Manual) Eosinophils # (Manual) Basophils # (Manual) PT INR Fibrinogen dRVVT Confirm Interp Factor V Activity POC ABG pH POC ABG pCO2 POC ABG pO2 ABG pO2 ABG HCO3 ABG Base Excess ABG Hemoglobin Oxyhemoglobin Sodium Potassium Chloride Carbon Dioxide BUN Creatinine Glucose POC Glucose 206 H 173 H 139 H Lactic Acid Calcium Phosphorus Magnesium Direct Bilirubin AST ALT Alkaline Phosphatase Lactate Dehydrogenase Troponin T C-Reactive Protein Total Protein Albumin Prealbumin Triglycerides Cholesterol LDL Cholesterol Direct HDL Cholesterol Urine pH Urine WBC (Auto) Urine Creatinine Urine Total Protein Fluid Total Protein Vancomycin Trough Rheumatoid Factor Complement C4 Miscellaneous Test Crossmatch 12/14/16 12/14/16 12/14/16 05:16 06:10 11:17 WBC RBC Hgb Hct MCV MCH MCHC RDW Plt Count Lymph % (Auto) [place] % (Auto) Lymph # [place] # Baso # Seg Neutrophils % Seg Neuts % (Manual) Lymphocytes % (Manual) Monocytes % (Manual) Eosinophils % (Manual) Basophils % (Manual) Nucleated RBC % Seg Neutrophils # Seg Neutrophils # Man Lymphocytes # (Manual) Monocytes # (Manual) Eosinophils # (Manual) Basophils # (Manual) PT INR Fibrinogen dRVVT Confirm Interp Factor V Activity POC ABG pH POC ABG pCO2 POC ABG pO2 ABG pO2 ABG HCO3 ABG Base Excess ABG Hemoglobin Oxyhemoglobin Sodium Potassium Chloride Carbon Dioxide BUN 57 H Creatinine 1.4 H Glucose 135 H POC Glucose 158 H 137 H Lactic Acid Calcium Phosphorus Magnesium Direct Bilirubin AST ALT Alkaline Phosphatase Lactate Dehydrogenase Troponin T C-Reactive Protein Total Protein Albumin Prealbumin Triglycerides Cholesterol LDL Cholesterol Direct HDL Cholesterol Urine pH Urine WBC (Auto) Urine Creatinine Urine Total Protein Fluid Total Protein Vancomycin Trough Rheumatoid Factor Complement C4 Miscellaneous Test Crossmatch 12/14/16 12/14/16 12/15/16 17:52 23:27 04:00 WBC RBC Hgb Hct MCV MCH MCHC RDW Plt Count Lymph % (Auto) [place] % (Auto) Lymph # [place] # Baso # Seg Neutrophils % Seg Neuts % (Manual) Lymphocytes % (Manual) Monocytes % (Manual) Eosinophils % (Manual) Basophils % (Manual) Nucleated RBC % Seg Neutrophils # Seg Neutrophils # Man Lymphocytes # (Manual) Monocytes # (Manual) Eosinophils # (Manual) Basophils # (Manual) PT INR Fibrinogen dRVVT Confirm Interp Factor V Activity POC ABG pH POC ABG pCO2 POC ABG pO2 ABG pO2 ABG HCO3 ABG Base Excess ABG Hemoglobin Oxyhemoglobin Sodium Potassium Chloride 97.9 L Carbon Dioxide BUN 75 H Creatinine 1.6 H Glucose 122 H POC Glucose 149 H 163 H Lactic Acid Calcium Phosphorus 5.20 H Magnesium Direct Bilirubin AST ALT Alkaline Phosphatase Lactate Dehydrogenase Troponin T C-Reactive Protein Total Protein Albumin Prealbumin Triglycerides Cholesterol LDL Cholesterol Direct HDL Cholesterol Urine pH Urine WBC (Auto) Urine Creatinine Urine Total Protein Fluid Total Protein Vancomycin Trough Rheumatoid Factor Complement C4 Miscellaneous Test Crossmatch 12/15/16 12/15/16 12/15/16 05:50 11:24 17:01 WBC RBC Hgb Hct MCV MCH MCHC RDW Plt Count Lymph % (Auto) [place] % (Auto) Lymph # [place] # Baso # Seg Neutrophils % Seg Neuts % (Manual) Lymphocytes % (Manual) Monocytes % (Manual) Eosinophils % (Manual) Basophils % (Manual) Nucleated RBC % Seg Neutrophils # Seg Neutrophils # Man Lymphocytes # (Manual) Monocytes # (Manual) Eosinophils # (Manual) Basophils # (Manual) PT INR Fibrinogen dRVVT Confirm Interp Factor V Activity POC ABG pH POC ABG pCO2 POC ABG pO2 ABG pO2 ABG HCO3 ABG Base Excess ABG Hemoglobin Oxyhemoglobin Sodium Potassium Chloride Carbon Dioxide BUN Creatinine Glucose POC Glucose 150 H 146 H 167 H Lactic Acid Calcium Phosphorus Magnesium Direct Bilirubin AST ALT Alkaline Phosphatase Lactate Dehydrogenase Troponin T C-Reactive Protein Total Protein Albumin Prealbumin Triglycerides Cholesterol LDL Cholesterol Direct HDL Cholesterol Urine pH Urine WBC (Auto) Urine Creatinine Urine Total Protein Fluid Total Protein Vancomycin Trough Rheumatoid Factor Complement C4 Miscellaneous Test Crossmatch 12/15/16 12/16/16 12/16/16 23:34 05:25 11:24 WBC RBC Hgb Hct MCV MCH MCHC RDW Plt Count Lymph % (Auto) [place] % (Auto) Lymph # [place] # Baso # Seg Neutrophils % Seg Neuts % (Manual) Lymphocytes % (Manual) Monocytes % (Manual) Eosinophils % (Manual) Basophils % (Manual) Nucleated RBC % Seg Neutrophils # Seg Neutrophils # Man Lymphocytes # (Manual) Monocytes # (Manual) Eosinophils # (Manual) Basophils # (Manual) PT INR Fibrinogen dRVVT Confirm Interp Factor V Activity POC ABG pH POC ABG pCO2 POC ABG pO2 ABG pO2 ABG HCO3 ABG Base Excess ABG Hemoglobin Oxyhemoglobin Sodium Potassium Chloride Carbon Dioxide BUN Creatinine Glucose POC Glucose 127 H 139 H 165 H Lactic Acid Calcium Phosphorus Magnesium Direct Bilirubin AST ALT Alkaline Phosphatase Lactate Dehydrogenase Troponin T C-Reactive Protein Total Protein Albumin Prealbumin Triglycerides Cholesterol LDL Cholesterol Direct HDL Cholesterol Urine pH Urine WBC (Auto) Urine Creatinine Urine Total Protein Fluid Total Protein Vancomycin Trough Rheumatoid Factor Complement C4 Miscellaneous Test Crossmatch 12/16/16 12/16/16 12/16/16 15:30 16:25 17:31 WBC 17.8 H RBC 2.38 L Hgb 6.4 L Hct 20.3 L MCV MCH 27 L MCHC RDW 17.4 H Plt Count Lymph % (Auto) [place] % (Auto) Lymph # [place] # Baso # Seg Neutrophils % Seg Neuts % (Manual) Lymphocytes % (Manual) Monocytes % (Manual) 10.0 H Eosinophils % (Manual) Basophils % (Manual) Nucleated RBC % Seg Neutrophils # Seg Neutrophils # Man 8.5 H Lymphocytes # (Manual) Monocytes # (Manual) 1.8 H Eosinophils # (Manual) Basophils # (Manual) PT INR Fibrinogen dRVVT Confirm Interp Factor V Activity POC ABG pH POC ABG pCO2 POC ABG pO2 ABG pO2 ABG HCO3 ABG Base Excess ABG Hemoglobin Oxyhemoglobin Sodium Potassium Chloride Carbon Dioxide BUN Creatinine Glucose POC Glucose 176 H Lactic Acid Calcium Phosphorus Magnesium Direct Bilirubin AST ALT Alkaline Phosphatase Lactate Dehydrogenase Troponin T C-Reactive Protein Total Protein Albumin Prealbumin Triglycerides Cholesterol LDL Cholesterol Direct HDL Cholesterol Urine pH Urine WBC (Auto) Urine Creatinine Urine Total Protein Fluid Total Protein Vancomycin Trough Rheumatoid Factor Complement C4 Miscellaneous Test Crossmatch See Detail 12/17/16 12/17/16 12/17/16 00:14 04:00 05:00 WBC 20.0 H RBC 2.99 L Hgb 8.5 L Hct 25.7 L MCV MCH MCHC RDW 17.2 H Plt Count Lymph % (Auto) [place] % (Auto) Lymph # [place] # Baso # Seg Neutrophils % Seg Neuts % (Manual) Lymphocytes % (Manual) Monocytes % (Manual) Eosinophils % (Manual) Basophils % (Manual) Nucleated RBC % Seg Neutrophils # Seg Neutrophils # Man Lymphocytes # (Manual) Monocytes # (Manual) Eosinophils # (Manual) Basophils # (Manual) PT INR Fibrinogen dRVVT Confirm Interp Factor V Activity POC ABG pH POC ABG pCO2 POC ABG pO2 ABG pO2 ABG HCO3 ABG Base Excess ABG Hemoglobin Oxyhemoglobin Sodium Potassium Chloride 97.7 L Carbon Dioxide BUN 73 H Creatinine 1.7 H Glucose 136 H POC Glucose 148 H Lactic Acid Calcium Phosphorus 2.20 L Magnesium 2.70 H Direct Bilirubin AST ALT Alkaline Phosphatase Lactate Dehydrogenase Troponin T C-Reactive Protein Total Protein Albumin Prealbumin Triglycerides Cholesterol LDL Cholesterol Direct HDL Cholesterol Urine pH Urine WBC (Auto) Urine Creatinine Urine Total Protein Fluid Total Protein Vancomycin Trough Rheumatoid Factor Complement C4 Miscellaneous Test Crossmatch 12/17/16 12/17/16 12/17/16 05:39 12:50 16:32 WBC RBC Hgb Hct MCV MCH MCHC RDW Plt Count Lymph % (Auto) [place] % (Auto) Lymph # [place] # Baso # Seg Neutrophils % Seg Neuts % (Manual) Lymphocytes % (Manual) Monocytes % (Manual) Eosinophils % (Manual) Basophils % (Manual) Nucleated RBC % Seg Neutrophils # Seg Neutrophils # Man Lymphocytes # (Manual) Monocytes # (Manual) Eosinophils # (Manual) Basophils # (Manual) PT INR Fibrinogen dRVVT Confirm Interp Factor V Activity POC ABG pH POC ABG pCO2 POC ABG pO2 ABG pO2 ABG HCO3 ABG Base Excess ABG Hemoglobin Oxyhemoglobin Sodium Potassium Chloride Carbon Dioxide BUN Creatinine Glucose POC Glucose 162 H 146 H 169 H Lactic Acid Calcium Phosphorus Magnesium Direct Bilirubin AST ALT Alkaline Phosphatase Lactate Dehydrogenase Troponin T C-Reactive Protein Total Protein Albumin Prealbumin Triglycerides Cholesterol LDL Cholesterol Direct HDL Cholesterol Urine pH Urine WBC (Auto) Urine Creatinine Urine Total Protein Fluid Total Protein Vancomycin Trough Rheumatoid Factor Complement C4 Miscellaneous Test Crossmatch 12/17/16 12/18/16 12/18/16 23:57 05:00 05:32 WBC RBC Hgb Hct MCV MCH MCHC RDW Plt Count Lymph % (Auto) [place] % (Auto) Lymph # [place] # Baso # Seg Neutrophils % Seg Neuts % (Manual) Lymphocytes % (Manual) Monocytes % (Manual) Eosinophils % (Manual) Basophils % (Manual) Nucleated RBC % Seg Neutrophils # Seg Neutrophils # Man Lymphocytes # (Manual) Monocytes # (Manual) Eosinophils # (Manual) Basophils # (Manual) PT INR Fibrinogen dRVVT Confirm Interp Factor V Activity POC ABG pH POC ABG pCO2 POC ABG pO2 ABG pO2 ABG HCO3 ABG Base Excess ABG Hemoglobin Oxyhemoglobin Sodium Potassium Chloride 97.0 L Carbon Dioxide BUN 63 H Creatinine 1.4 H Glucose 174 H POC Glucose 145 H 201 H Lactic Acid Calcium Phosphorus 1.70 L D Magnesium Direct Bilirubin AST ALT Alkaline Phosphatase 257 H Lactate Dehydrogenase Troponin T C-Reactive Protein Total Protein 5.9 L Albumin 1.8 L Prealbumin Triglycerides Cholesterol LDL Cholesterol Direct HDL Cholesterol Urine pH Urine WBC (Auto) Urine Creatinine Urine Total Protein Fluid Total Protein Vancomycin Trough Rheumatoid Factor Complement C4 Miscellaneous Test Crossmatch 12/18/16 12/18/16 12/18/16 11:43 16:52 23:52 WBC RBC Hgb Hct MCV MCH MCHC RDW Plt Count Lymph % (Auto) [place] % (Auto) Lymph # [place] # Baso # Seg Neutrophils % Seg Neuts % (Manual) Lymphocytes % (Manual) Monocytes % (Manual) Eosinophils % (Manual) Basophils % (Manual) Nucleated RBC % Seg Neutrophils # Seg Neutrophils # Man Lymphocytes # (Manual) Monocytes # (Manual) Eosinophils # (Manual) Basophils # (Manual) PT INR Fibrinogen dRVVT Confirm Interp Factor V Activity POC ABG pH POC ABG pCO2 POC ABG pO2 ABG pO2 ABG HCO3 ABG Base Excess ABG Hemoglobin Oxyhemoglobin Sodium Potassium Chloride Carbon Dioxide BUN Creatinine Glucose POC Glucose 177 H 110 H 162 H Lactic Acid Calcium Phosphorus Magnesium Direct Bilirubin AST ALT Alkaline Phosphatase Lactate Dehydrogenase Troponin T C-Reactive Protein Total Protein Albumin Prealbumin Triglycerides Cholesterol LDL Cholesterol Direct HDL Cholesterol Urine pH Urine WBC (Auto) Urine Creatinine Urine Total Protein Fluid Total Protein Vancomycin Trough Rheumatoid Factor Complement C4 Miscellaneous Test Crossmatch 12/19/16 12/19/16 12/19/16 05:02 05:24 09:30 WBC 20.1 H RBC 2.73 L Hgb 7.6 L Hct 23.6 L MCV MCH MCHC RDW 17.6 H Plt Count Lymph % (Auto) [place] % (Auto) Lymph # [place] # Baso # Seg Neutrophils % Seg Neuts % (Manual) Lymphocytes % (Manual) 13.0 L Monocytes % (Manual) Eosinophils % (Manual) Basophils % (Manual) Nucleated RBC % 1.0 H Seg Neutrophils # Seg Neutrophils # Man 12.9 H Lymphocytes # (Manual) Monocytes # (Manual) 1.4 H Eosinophils # (Manual) Basophils # (Manual) 0.2 H PT INR Fibrinogen dRVVT Confirm Interp Factor V Activity POC ABG pH POC ABG pCO2 POC ABG pO2 ABG pO2 ABG HCO3 ABG Base Excess ABG Hemoglobin Oxyhemoglobin Sodium Potassium Chloride 97.8 L Carbon Dioxide BUN 84 H Creatinine 1.6 H Glucose 133 H POC Glucose 134 H Lactic Acid Calcium Phosphorus Magnesium Direct Bilirubin AST ALT Alkaline Phosphatase Lactate Dehydrogenase Troponin T C-Reactive Protein Total Protein Albumin Prealbumin Triglycerides Cholesterol LDL Cholesterol Direct HDL Cholesterol Urine pH Urine WBC (Auto) Urine Creatinine Urine Total Protein Fluid Total Protein Vancomycin Trough Rheumatoid Factor Complement C4 Miscellaneous Test Crossmatch 12/19/16 12/19/16 12/19/16 09:36 11:12 18:29 WBC RBC Hgb Hct MCV MCH MCHC RDW Plt Count Lymph % (Auto) [place] % (Auto) Lymph # [place] # Baso # Seg Neutrophils % Seg Neuts % (Manual) Lymphocytes % (Manual) Monocytes % (Manual) Eosinophils % (Manual) Basophils % (Manual) Nucleated RBC % Seg Neutrophils # Seg Neutrophils # Man Lymphocytes # (Manual) Monocytes # (Manual) Eosinophils # (Manual) Basophils # (Manual) PT INR Fibrinogen dRVVT Confirm Interp Factor V Activity POC ABG pH 7.503 H POC ABG pCO2 30.1 L POC ABG pO2 ABG pO2 ABG HCO3 ABG Base Excess ABG Hemoglobin Oxyhemoglobin Sodium Potassium Chloride Carbon Dioxide BUN Creatinine Glucose POC Glucose 138 H 156 H Lactic Acid Calcium Phosphorus Magnesium Direct Bilirubin AST ALT Alkaline Phosphatase Lactate Dehydrogenase Troponin T C-Reactive Protein Total Protein Albumin Prealbumin Triglycerides Cholesterol LDL Cholesterol Direct HDL Cholesterol Urine pH Urine WBC (Auto) Urine Creatinine Urine Total Protein Fluid Total Protein Vancomycin Trough Rheumatoid Factor Complement C4 Miscellaneous Test Crossmatch 12/20/16 12/20/16 12/20/16 00:03 06:17 07:07 WBC RBC Hgb Hct MCV MCH MCHC RDW Plt Count Lymph % (Auto) [place] % (Auto) Lymph # [place] # Baso # Seg Neutrophils % Seg Neuts % (Manual) Lymphocytes % (Manual) Monocytes % (Manual) Eosinophils % (Manual) Basophils % (Manual) Nucleated RBC % Seg Neutrophils # Seg Neutrophils # Man Lymphocytes # (Manual) Monocytes # (Manual) Eosinophils # (Manual) Basophils # (Manual) PT INR Fibrinogen dRVVT Confirm Interp Factor V Activity POC ABG pH POC ABG pCO2 POC ABG pO2 ABG pO2 ABG HCO3 ABG Base Excess ABG Hemoglobin Oxyhemoglobin Sodium Potassium Chloride 97.1 L Carbon Dioxide 20 L BUN 97 H Creatinine 1.8 H Glucose 153 H POC Glucose 152 H 175 H Lactic Acid Calcium Phosphorus Magnesium Direct Bilirubin AST ALT Alkaline Phosphatase Lactate Dehydrogenase Troponin T C-Reactive Protein Total Protein Albumin Prealbumin Triglycerides Cholesterol LDL Cholesterol Direct HDL Cholesterol Urine pH Urine WBC (Auto) Urine Creatinine Urine Total Protein Fluid Total Protein Vancomycin Trough Rheumatoid Factor Complement C4 Miscellaneous Test Crossmatch 12/20/16 12/20/16 12/20/16 12:00 17:42 23:53 WBC RBC Hgb Hct MCV MCH MCHC RDW Plt Count Lymph % (Auto) [place] % (Auto) Lymph # [place] # Baso # Seg Neutrophils % Seg Neuts % (Manual) Lymphocytes % (Manual) Monocytes % (Manual) Eosinophils % (Manual) Basophils % (Manual) Nucleated RBC % Seg Neutrophils # Seg Neutrophils # Man Lymphocytes # (Manual) Monocytes # (Manual) Eosinophils # (Manual) Basophils # (Manual) PT INR Fibrinogen dRVVT Confirm Interp Factor V Activity POC ABG pH POC ABG pCO2 POC ABG pO2 ABG pO2 ABG HCO3 ABG Base Excess ABG Hemoglobin Oxyhemoglobin Sodium Potassium Chloride Carbon Dioxide BUN Creatinine Glucose POC Glucose 141 H 156 H 132 H Lactic Acid Calcium Phosphorus Magnesium Direct Bilirubin AST ALT Alkaline Phosphatase Lactate Dehydrogenase Troponin T C-Reactive Protein Total Protein Albumin Prealbumin Triglycerides Cholesterol LDL Cholesterol Direct HDL Cholesterol Urine pH Urine WBC (Auto) Urine Creatinine Urine Total Protein Fluid Total Protein Vancomycin Trough Rheumatoid Factor Complement C4 Miscellaneous Test Crossmatch 12/21/16 12/21/16 12/21/16 05:49 08:50 12:19 WBC RBC Hgb Hct MCV MCH MCHC RDW Plt Count Lymph % (Auto) [place] % (Auto) Lymph # [place] # Baso # Seg Neutrophils % Seg Neuts % (Manual) Lymphocytes % (Manual) Monocytes % (Manual) Eosinophils % (Manual) Basophils % (Manual) Nucleated RBC % Seg Neutrophils # Seg Neutrophils # Man Lymphocytes # (Manual) Monocytes # (Manual) Eosinophils # (Manual) Basophils # (Manual) PT INR Fibrinogen dRVVT Confirm Interp Factor V Activity POC ABG pH POC ABG pCO2 POC ABG pO2 ABG pO2 ABG HCO3 ABG Base Excess ABG Hemoglobin Oxyhemoglobin Sodium Potassium 5.2 H D Chloride Carbon Dioxide BUN 63 H Creatinine Glucose 122 H POC Glucose 132 H 136 H Lactic Acid Calcium 8.3 L Phosphorus Magnesium Direct Bilirubin AST ALT Alkaline Phosphatase Lactate Dehydrogenase Troponin T C-Reactive Protein Total Protein Albumin Prealbumin Triglycerides Cholesterol LDL Cholesterol Direct HDL Cholesterol Urine pH Urine WBC (Auto) Urine Creatinine Urine Total Protein Fluid Total Protein Vancomycin Trough Rheumatoid Factor Complement C4 Miscellaneous Test Crossmatch 12/21/16 12/21/16 12/22/16 17:22 23:58 05:49 WBC RBC Hgb Hct MCV MCH MCHC RDW Plt Count Lymph % (Auto) [place] % (Auto) Lymph # [place] # Baso # Seg Neutrophils % Seg Neuts % (Manual) Lymphocytes % (Manual) Monocytes % (Manual) Eosinophils % (Manual) Basophils % (Manual) Nucleated RBC % Seg Neutrophils # Seg Neutrophils # Man Lymphocytes # (Manual) Monocytes # (Manual) Eosinophils # (Manual) Basophils # (Manual) PT INR Fibrinogen dRVVT Confirm Interp Factor V Activity POC ABG pH POC ABG pCO2 POC ABG pO2 ABG pO2 ABG HCO3 ABG Base Excess ABG Hemoglobin Oxyhemoglobin Sodium Potassium Chloride Carbon Dioxide BUN Creatinine Glucose POC Glucose 135 H 149 H 140 H Lactic Acid Calcium Phosphorus Magnesium Direct Bilirubin AST ALT Alkaline Phosphatase Lactate Dehydrogenase Troponin T C-Reactive Protein Total Protein Albumin Prealbumin Triglycerides Cholesterol LDL Cholesterol Direct HDL Cholesterol Urine pH Urine WBC (Auto) Urine Creatinine Urine Total Protein Fluid Total Protein Vancomycin Trough Rheumatoid Factor Complement C4 Miscellaneous Test Crossmatch 12/22/16 12/22/16 12/22/16 06:10 11:17 17:31 WBC RBC Hgb Hct MCV MCH MCHC RDW Plt Count Lymph % (Auto) [place] % (Auto) Lymph # [place] # Baso # Seg Neutrophils % Seg Neuts % (Manual) Lymphocytes % (Manual) Monocytes % (Manual) Eosinophils % (Manual) Basophils % (Manual) Nucleated RBC % Seg Neutrophils # Seg Neutrophils # Man Lymphocytes # (Manual) Monocytes # (Manual) Eosinophils # (Manual) Basophils # (Manual) PT INR Fibrinogen dRVVT Confirm Interp Factor V Activity POC ABG pH POC ABG pCO2 POC ABG pO2 ABG pO2 ABG HCO3 ABG Base Excess ABG Hemoglobin Oxyhemoglobin Sodium Potassium Chloride Carbon Dioxide BUN 76 H Creatinine 1.5 H Glucose 241 H POC Glucose 193 H 148 H Lactic Acid Calcium Phosphorus Magnesium Direct Bilirubin AST ALT Alkaline Phosphatase Lactate Dehydrogenase Troponin T C-Reactive Protein Total Protein Albumin Prealbumin Triglycerides Cholesterol LDL Cholesterol Direct HDL Cholesterol Urine pH Urine WBC (Auto) Urine Creatinine Urine Total Protein Fluid Total Protein Vancomycin Trough Rheumatoid Factor Complement C4 Miscellaneous Test Crossmatch 12/22/16 12/23/16 12/23/16 23:58 05:00 05:26 WBC RBC Hgb Hct MCV MCH MCHC RDW Plt Count Lymph % (Auto) [place] % (Auto) Lymph # [place] # Baso # Seg Neutrophils % Seg Neuts % (Manual) Lymphocytes % (Manual) Monocytes % (Manual) Eosinophils % (Manual) Basophils % (Manual) Nucleated RBC % Seg Neutrophils # Seg Neutrophils # Man Lymphocytes # (Manual) Monocytes # (Manual) Eosinophils # (Manual) Basophils # (Manual) PT INR Fibrinogen dRVVT Confirm Interp Factor V Activity POC ABG pH POC ABG pCO2 POC ABG pO2 ABG pO2 ABG HCO3 ABG Base Excess ABG Hemoglobin Oxyhemoglobin Sodium Potassium Chloride Carbon Dioxide BUN 49 H Creatinine Glucose 143 H POC Glucose 165 H 154 H Lactic Acid Calcium 8.2 L Phosphorus Magnesium 1.60 L Direct Bilirubin AST ALT Alkaline Phosphatase Lactate Dehydrogenase Troponin T C-Reactive Protein Total Protein Albumin Prealbumin Triglycerides Cholesterol LDL Cholesterol Direct HDL Cholesterol Urine pH Urine WBC (Auto) Urine Creatinine Urine Total Protein Fluid Total Protein Vancomycin Trough Rheumatoid Factor Complement C4 Miscellaneous Test Crossmatch 12/23/16 12/23/16 12/24/16 12:35 17:01 00:01 WBC RBC Hgb Hct MCV MCH MCHC RDW Plt Count Lymph % (Auto) [place] % (Auto) Lymph # [place] # Baso # Seg Neutrophils % Seg Neuts % (Manual) Lymphocytes % (Manual) Monocytes % (Manual) Eosinophils % (Manual) Basophils % (Manual) Nucleated RBC % Seg Neutrophils # Seg Neutrophils # Man Lymphocytes # (Manual) Monocytes # (Manual) Eosinophils # (Manual) Basophils # (Manual) PT INR Fibrinogen dRVVT Confirm Interp Factor V Activity POC ABG pH POC ABG pCO2 POC ABG pO2 ABG pO2 ABG HCO3 ABG Base Excess ABG Hemoglobin Oxyhemoglobin Sodium Potassium Chloride Carbon Dioxide BUN Creatinine Glucose POC Glucose 164 H 149 H 135 H Lactic Acid Calcium Phosphorus Magnesium Direct Bilirubin AST ALT Alkaline Phosphatase Lactate Dehydrogenase Troponin T C-Reactive Protein Total Protein Albumin Prealbumin Triglycerides Cholesterol LDL Cholesterol Direct HDL Cholesterol Urine pH Urine WBC (Auto) Urine Creatinine Urine Total Protein Fluid Total Protein Vancomycin Trough Rheumatoid Factor Complement C4 Miscellaneous Test Crossmatch 12/24/16 12/24/16 12/24/16 05:41 07:01 11:38 WBC RBC Hgb Hct MCV MCH MCHC RDW Plt Count Lymph % (Auto) [place] % (Auto) Lymph # [place] # Baso # Seg Neutrophils % Seg Neuts % (Manual) Lymphocytes % (Manual) Monocytes % (Manual) Eosinophils % (Manual) Basophils % (Manual) Nucleated RBC % Seg Neutrophils # Seg Neutrophils # Man Lymphocytes # (Manual) Monocytes # (Manual) Eosinophils # (Manual) Basophils # (Manual) PT INR Fibrinogen dRVVT Confirm Interp Factor V Activity POC ABG pH POC ABG pCO2 POC ABG pO2 ABG pO2 ABG HCO3 ABG Base Excess ABG Hemoglobin Oxyhemoglobin Sodium Potassium Chloride Carbon Dioxide BUN 72 H Creatinine 1.3 H Glucose 130 H POC Glucose 132 H 156 H Lactic Acid Calcium 8.2 L Phosphorus Magnesium Direct Bilirubin AST ALT Alkaline Phosphatase Lactate Dehydrogenase Troponin T C-Reactive Protein Total Protein Albumin Prealbumin Triglycerides Cholesterol LDL Cholesterol Direct HDL Cholesterol Urine pH Urine WBC (Auto) Urine Creatinine Urine Total Protein Fluid Total Protein Vancomycin Trough Rheumatoid Factor Complement C4 Miscellaneous Test Crossmatch 12/24/16 12/25/16 12/25/16 17:53 00:23 05:45 WBC RBC Hgb Hct MCV MCH MCHC RDW Plt Count Lymph % (Auto) [place] % (Auto) Lymph # [place] # Baso # Seg Neutrophils % Seg Neuts % (Manual) Lymphocytes % (Manual) Monocytes % (Manual) Eosinophils % (Manual) Basophils % (Manual) Nucleated RBC % Seg Neutrophils # Seg Neutrophils # Man Lymphocytes # (Manual) Monocytes # (Manual) Eosinophils # (Manual) Basophils # (Manual) PT INR Fibrinogen dRVVT Confirm Interp Factor V Activity POC ABG pH POC ABG pCO2 POC ABG pO2 ABG pO2 ABG HCO3 ABG Base Excess ABG Hemoglobin Oxyhemoglobin Sodium 146 H Potassium Chloride Carbon Dioxide BUN 51 H Creatinine Glucose 109 H POC Glucose 169 H 117 H Lactic Acid Calcium Phosphorus Magnesium Direct Bilirubin AST ALT Alkaline Phosphatase Lactate Dehydrogenase Troponin T C-Reactive Protein Total Protein Albumin Prealbumin Triglycerides Cholesterol LDL Cholesterol Direct HDL Cholesterol Urine pH Urine WBC (Auto) Urine Creatinine Urine Total Protein Fluid Total Protein Vancomycin Trough Rheumatoid Factor Complement C4 Miscellaneous Test Crossmatch 12/25/16 12/25/16 12/25/16 06:43 11:29 17:14 WBC RBC Hgb Hct MCV MCH MCHC RDW Plt Count Lymph % (Auto) [place] % (Auto) Lymph # [place] # Baso # Seg Neutrophils % Seg Neuts % (Manual) Lymphocytes % (Manual) Monocytes % (Manual) Eosinophils % (Manual) Basophils % (Manual) Nucleated RBC % Seg Neutrophils # Seg Neutrophils # Man Lymphocytes # (Manual) Monocytes # (Manual) Eosinophils # (Manual) Basophils # (Manual) PT INR Fibrinogen dRVVT Confirm Interp Factor V Activity POC ABG pH POC ABG pCO2 POC ABG pO2 ABG pO2 ABG HCO3 ABG Base Excess ABG Hemoglobin Oxyhemoglobin Sodium Potassium Chloride Carbon Dioxide BUN Creatinine Glucose POC Glucose 117 H 128 H 120 H Lactic Acid Calcium Phosphorus Magnesium Direct Bilirubin AST ALT Alkaline Phosphatase Lactate Dehydrogenase Troponin T C-Reactive Protein Total Protein Albumin Prealbumin Triglycerides Cholesterol LDL Cholesterol Direct HDL Cholesterol Urine pH Urine WBC (Auto) Urine Creatinine Urine Total Protein Fluid Total Protein Vancomycin Trough Rheumatoid Factor Complement C4 Miscellaneous Test Crossmatch 12/25/16 12/26/16 12/26/16 23:54 05:40 05:50 WBC 16.2 H RBC 2.32 L Hgb 6.2 L Hct 20.1 L MCV MCH 27 L MCHC RDW 18.6 H Plt Count Lymph % (Auto) [place] % (Auto) Lymph # [place] # Baso # Seg Neutrophils % Seg Neuts % (Manual) Lymphocytes % (Manual) Monocytes % (Manual) Eosinophils % (Manual) Basophils % (Manual) Nucleated RBC % Seg Neutrophils # Seg Neutrophils # Man Lymphocytes # (Manual) Monocytes # (Manual) Eosinophils # (Manual) Basophils # (Manual) PT INR Fibrinogen dRVVT Confirm Interp Factor V Activity POC ABG pH POC ABG pCO2 POC ABG pO2 ABG pO2 ABG HCO3 ABG Base Excess ABG Hemoglobin Oxyhemoglobin Sodium Potassium Chloride Carbon Dioxide BUN Creatinine Glucose POC Glucose 126 H 132 H Lactic Acid Calcium Phosphorus Magnesium Direct Bilirubin AST ALT Alkaline Phosphatase Lactate Dehydrogenase Troponin T C-Reactive Protein Total Protein Albumin Prealbumin Triglycerides Cholesterol LDL Cholesterol Direct HDL Cholesterol Urine pH Urine WBC (Auto) Urine Creatinine Urine Total Protein Fluid Total Protein Vancomycin Trough Rheumatoid Factor Complement C4 Miscellaneous Test Crossmatch 12/26/16 12/26/16 12/26/16 05:50 12:17 12:33 WBC RBC Hgb Hct MCV MCH MCHC RDW Plt Count Lymph % (Auto) [place] % (Auto) Lymph # [place] # Baso # Seg Neutrophils % Seg Neuts % (Manual) Lymphocytes % (Manual) Monocytes % (Manual) Eosinophils % (Manual) Basophils % (Manual) Nucleated RBC % Seg Neutrophils # Seg Neutrophils # Man Lymphocytes # (Manual) Monocytes # (Manual) Eosinophils # (Manual) Basophils # (Manual) PT INR Fibrinogen dRVVT Confirm Interp Factor V Activity POC ABG pH POC ABG pCO2 POC ABG pO2 ABG pO2 ABG HCO3 ABG Base Excess ABG Hemoglobin Oxyhemoglobin Sodium Potassium Chloride Carbon Dioxide BUN 73 H Creatinine 1.3 H Glucose 113 H POC Glucose 117 H Lactic Acid Calcium Phosphorus Magnesium Direct Bilirubin AST ALT Alkaline Phosphatase Lactate Dehydrogenase Troponin T C-Reactive Protein Total Protein Albumin Prealbumin Triglycerides Cholesterol LDL Cholesterol Direct HDL Cholesterol Urine pH Urine WBC (Auto) Urine Creatinine Urine Total Protein Fluid Total Protein Vancomycin Trough Rheumatoid Factor Complement C4 Miscellaneous Test Crossmatch See Detail 12/26/16 12/26/16 12/27/16 20:00 23:21 05:00 WBC RBC Hgb 8.4 L Hct 26.3 L D MCV MCH MCHC RDW Plt Count Lymph % (Auto) [place] % (Auto) Lymph # [place] # Baso # Seg Neutrophils % Seg Neuts % (Manual) Lymphocytes % (Manual) Monocytes % (Manual) Eosinophils % (Manual) Basophils % (Manual) Nucleated RBC % Seg Neutrophils # Seg Neutrophils # Man Lymphocytes # (Manual) Monocytes # (Manual) Eosinophils # (Manual) Basophils # (Manual) PT INR Fibrinogen dRVVT Confirm Interp Factor V Activity POC ABG pH POC ABG pCO2 POC ABG pO2 ABG pO2 ABG HCO3 ABG Base Excess ABG Hemoglobin Oxyhemoglobin Sodium Potassium Chloride Carbon Dioxide BUN 85 H Creatinine 1.6 H Glucose 118 H POC Glucose 124 H Lactic Acid Calcium Phosphorus 4.80 H Magnesium Direct Bilirubin AST ALT Alkaline Phosphatase Lactate Dehydrogenase Troponin T C-Reactive Protein Total Protein Albumin Prealbumin Triglycerides Cholesterol LDL Cholesterol Direct HDL Cholesterol Urine pH Urine WBC (Auto) Urine Creatinine Urine Total Protein Fluid Total Protein Vancomycin Trough Rheumatoid Factor Complement C4 Miscellaneous Test Crossmatch 12/27/16 12/27/16 12/27/16 05:00 05:35 12:24 WBC RBC Hgb 7.6 L Hct 22.8 L MCV MCH MCHC RDW Plt Count Lymph % (Auto) [place] % (Auto) Lymph # [place] # Baso # Seg Neutrophils % Seg Neuts % (Manual) Lymphocytes % (Manual) Monocytes % (Manual) Eosinophils % (Manual) Basophils % (Manual) Nucleated RBC % Seg Neutrophils # Seg Neutrophils # Man Lymphocytes # (Manual) Monocytes # (Manual) Eosinophils # (Manual) Basophils # (Manual) PT INR Fibrinogen dRVVT Confirm Interp Factor V Activity POC ABG pH POC ABG pCO2 POC ABG pO2 ABG pO2 ABG HCO3 ABG Base Excess ABG Hemoglobin Oxyhemoglobin Sodium Potassium Chloride Carbon Dioxide BUN Creatinine Glucose POC Glucose 115 H 131 H Lactic Acid Calcium Phosphorus Magnesium Direct Bilirubin AST ALT Alkaline Phosphatase Lactate Dehydrogenase Troponin T C-Reactive Protein Total Protein Albumin Prealbumin Triglycerides Cholesterol LDL Cholesterol Direct HDL Cholesterol Urine pH Urine WBC (Auto) Urine Creatinine Urine Total Protein Fluid Total Protein Vancomycin Trough Rheumatoid Factor Complement C4 Miscellaneous Test Crossmatch 12/27/16 12/28/16 12/28/16 17:16 00:18 04:00 WBC RBC Hgb Hct MCV MCH MCHC RDW Plt Count Lymph % (Auto) [place] % (Auto) Lymph # [place] # Baso # Seg Neutrophils % Seg Neuts % (Manual) Lymphocytes % (Manual) Monocytes % (Manual) Eosinophils % (Manual) Basophils % (Manual) Nucleated RBC % Seg Neutrophils # Seg Neutrophils # Man Lymphocytes # (Manual) Monocytes # (Manual) Eosinophils # (Manual) Basophils # (Manual) PT INR Fibrinogen dRVVT Confirm Interp Factor V Activity POC ABG pH POC ABG pCO2 POC ABG pO2 ABG pO2 ABG HCO3 ABG Base Excess ABG Hemoglobin Oxyhemoglobin Sodium Potassium 3.5 L Chloride Carbon Dioxide BUN 57 H Creatinine Glucose 118 H POC Glucose 136 H 120 H Lactic Acid Calcium 8.3 L Phosphorus Magnesium Direct Bilirubin AST ALT Alkaline Phosphatase Lactate Dehydrogenase Troponin T C-Reactive Protein Total Protein Albumin Prealbumin Triglycerides Cholesterol LDL Cholesterol Direct HDL Cholesterol Urine pH Urine WBC (Auto) Urine Creatinine Urine Total Protein Fluid Total Protein Vancomycin Trough Rheumatoid Factor Complement C4 Miscellaneous Test Crossmatch 12/28/16 12/28/16 12/28/16 04:00 05:11 08:30 WBC 17.0 H RBC 2.58 L Hgb 7.1 L Hct 22.0 L MCV MCH MCHC RDW 17.6 H Plt Count Lymph % (Auto) 12.2 L [place] % (Auto) Lymph # [place] # 1.1 H Baso # Seg Neutrophils % 80.5 H Seg Neuts % (Manual) Lymphocytes % (Manual) Monocytes % (Manual) Eosinophils % (Manual) Basophils % (Manual) Nucleated RBC % Seg Neutrophils # 13.7 H Seg Neutrophils # Man Lymphocytes # (Manual) Monocytes # (Manual) Eosinophils # (Manual) Basophils # (Manual) PT 16.1 H INR 1.23 H Fibrinogen dRVVT Confirm Interp Factor V Activity POC ABG pH POC ABG pCO2 POC ABG pO2 ABG pO2 ABG HCO3 ABG Base Excess ABG Hemoglobin Oxyhemoglobin Sodium Potassium Chloride Carbon Dioxide BUN Creatinine Glucose POC Glucose 122 H Lactic Acid Calcium Phosphorus Magnesium Direct Bilirubin AST ALT Alkaline Phosphatase Lactate Dehydrogenase Troponin T C-Reactive Protein Total Protein Albumin Prealbumin Triglycerides Cholesterol LDL Cholesterol Direct HDL Cholesterol Urine pH Urine WBC (Auto) Urine Creatinine Urine Total Protein Fluid Total Protein Vancomycin Trough Rheumatoid Factor Complement C4 Miscellaneous Test Crossmatch 12/28/16 12/28/16 12/28/16 12:27 16:32 23:46 WBC RBC Hgb Hct MCV MCH MCHC RDW Plt Count Lymph % (Auto) [place] % (Auto) Lymph # [place] # Baso # Seg Neutrophils % Seg Neuts % (Manual) Lymphocytes % (Manual) Monocytes % (Manual) Eosinophils % (Manual) Basophils % (Manual) Nucleated RBC % Seg Neutrophils # Seg Neutrophils # Man Lymphocytes # (Manual) Monocytes # (Manual) Eosinophils # (Manual) Basophils # (Manual) PT INR Fibrinogen dRVVT Confirm Interp Factor V Activity POC ABG pH POC ABG pCO2 POC ABG pO2 ABG pO2 ABG HCO3 ABG Base Excess ABG Hemoglobin Oxyhemoglobin Sodium Potassium Chloride Carbon Dioxide BUN Creatinine Glucose POC Glucose 127 H 117 H 108 H Lactic Acid Calcium Phosphorus Magnesium Direct Bilirubin AST ALT Alkaline Phosphatase Lactate Dehydrogenase Troponin T C-Reactive Protein Total Protein Albumin Prealbumin Triglycerides Cholesterol LDL Cholesterol Direct HDL Cholesterol Urine pH Urine WBC (Auto) Urine Creatinine Urine Total Protein Fluid Total Protein Vancomycin Trough Rheumatoid Factor Complement C4 Miscellaneous Test Crossmatch 12/29/16 12/29/16 12/29/16 05:15 05:15 05:32 WBC RBC Hgb Hct MCV MCH MCHC RDW Plt Count Lymph % (Auto) [place] % (Auto) Lymph # [place] # Baso # Seg Neutrophils % Seg Neuts % (Manual) Lymphocytes % (Manual) Monocytes % (Manual) Eosinophils % (Manual) Basophils % (Manual) Nucleated RBC % Seg Neutrophils # Seg Neutrophils # Man Lymphocytes # (Manual) Monocytes # (Manual) Eosinophils # (Manual) Basophils # (Manual) PT INR Fibrinogen dRVVT Confirm Interp Factor V Activity POC ABG pH POC ABG pCO2 POC ABG pO2 ABG pO2 ABG HCO3 ABG Base Excess ABG Hemoglobin Oxyhemoglobin Sodium Potassium Chloride Carbon Dioxide BUN 74 H Creatinine 1.6 H Glucose 111 H POC Glucose 123 H Lactic Acid Calcium Phosphorus Magnesium Direct Bilirubin AST ALT Alkaline Phosphatase Lactate Dehydrogenase Troponin T C-Reactive Protein Total Protein Albumin Prealbumin 0.110 L Triglycerides Cholesterol LDL Cholesterol Direct HDL Cholesterol Urine pH Urine WBC (Auto) Urine Creatinine Urine Total Protein Fluid Total Protein Vancomycin Trough Rheumatoid Factor Complement C4 Miscellaneous Test Crossmatch 12/29/16 12/29/16 12/29/16 11:43 13:45 14:00 WBC 13.8 H RBC 2.26 L Hgb 6.3 L Hct 20.4 L MCV MCH MCHC RDW 18.3 H Plt Count Lymph % (Auto) [place] % (Auto) Lymph # [place] # 0.9 H Baso # Seg Neutrophils % 78.6 H Seg Neuts % (Manual) Lymphocytes % (Manual) Monocytes % (Manual) Eosinophils % (Manual) Basophils % (Manual) Nucleated RBC % Seg Neutrophils # 10.8 H Seg Neutrophils # Man Lymphocytes # (Manual) Monocytes # (Manual) Eosinophils # (Manual) Basophils # (Manual) PT INR Fibrinogen dRVVT Confirm Interp Factor V Activity POC ABG pH POC ABG pCO2 POC ABG pO2 ABG pO2 ABG HCO3 ABG Base Excess ABG Hemoglobin Oxyhemoglobin Sodium Potassium Chloride Carbon Dioxide BUN Creatinine Glucose POC Glucose 133 H Lactic Acid Calcium Phosphorus Magnesium Direct Bilirubin AST ALT Alkaline Phosphatase Lactate Dehydrogenase Troponin T C-Reactive Protein Total Protein Albumin Prealbumin Triglycerides Cholesterol LDL Cholesterol Direct HDL Cholesterol Urine pH Urine WBC (Auto) Urine Creatinine Urine Total Protein Fluid Total Protein Vancomycin Trough Rheumatoid Factor Complement C4 Miscellaneous Test Crossmatch See Detail 12/29/16 12/29/16 12/29/16 17:03 23:15 23:22 WBC RBC Hgb 7.3 L Hct 22.3 L MCV MCH MCHC RDW Plt Count Lymph % (Auto) [place] % (Auto) Lymph # [place] # Baso # Seg Neutrophils % Seg Neuts % (Manual) Lymphocytes % (Manual) Monocytes % (Manual) Eosinophils % (Manual) Basophils % (Manual) Nucleated RBC % Seg Neutrophils # Seg Neutrophils # Man Lymphocytes # (Manual) Monocytes # (Manual) Eosinophils # (Manual) Basophils # (Manual) PT INR Fibrinogen dRVVT Confirm Interp Factor V Activity POC ABG pH POC ABG pCO2 POC ABG pO2 ABG pO2 ABG HCO3 ABG Base Excess ABG Hemoglobin Oxyhemoglobin Sodium Potassium Chloride Carbon Dioxide BUN Creatinine Glucose POC Glucose 139 H 120 H Lactic Acid Calcium Phosphorus Magnesium Direct Bilirubin AST ALT Alkaline Phosphatase Lactate Dehydrogenase Troponin T C-Reactive Protein Total Protein Albumin Prealbumin Triglycerides Cholesterol LDL Cholesterol Direct HDL Cholesterol Urine pH Urine WBC (Auto) Urine Creatinine Urine Total Protein Fluid Total Protein Vancomycin Trough Rheumatoid Factor Complement C4 Miscellaneous Test Crossmatch 12/30/16 12/30/16 12/30/16 04:20 04:20 05:43 WBC 15.6 H RBC 2.81 L Hgb 8.0 L Hct 24.0 L MCV MCH MCHC RDW 16.9 H Plt Count Lymph % (Auto) [place] % (Auto) Lymph # [place] # 1.0 H Baso # Seg Neutrophils % 76.2 H Seg Neuts % (Manual) Lymphocytes % (Manual) Monocytes % (Manual) Eosinophils % (Manual) Basophils % (Manual) Nucleated RBC % Seg Neutrophils # 11.9 H Seg Neutrophils # Man Lymphocytes # (Manual) Monocytes # (Manual) Eosinophils # (Manual) Basophils # (Manual) PT INR Fibrinogen dRVVT Confirm Interp Factor V Activity POC ABG pH POC ABG pCO2 POC ABG pO2 ABG pO2 ABG HCO3 ABG Base Excess ABG Hemoglobin Oxyhemoglobin Sodium Potassium Chloride Carbon Dioxide BUN 87 H Creatinine 1.8 H Glucose 119 H POC Glucose 115 H Lactic Acid Calcium Phosphorus Magnesium Direct Bilirubin AST ALT Alkaline Phosphatase Lactate Dehydrogenase Troponin T C-Reactive Protein Total Protein Albumin Prealbumin Triglycerides Cholesterol LDL Cholesterol Direct HDL Cholesterol Urine pH Urine WBC (Auto) Urine Creatinine Urine Total Protein Fluid Total Protein Vancomycin Trough Rheumatoid Factor Complement C4 Miscellaneous Test Crossmatch 12/30/16 12/30/16 12/31/16 17:27 23:21 04:00 WBC RBC Hgb Hct MCV MCH MCHC RDW Plt Count Lymph % (Auto) [place] % (Auto) Lymph # [place] # Baso # Seg Neutrophils % Seg Neuts % (Manual) Lymphocytes % (Manual) Monocytes % (Manual) Eosinophils % (Manual) Basophils % (Manual) Nucleated RBC % Seg Neutrophils # Seg Neutrophils # Man Lymphocytes # (Manual) Monocytes # (Manual) Eosinophils # (Manual) Basophils # (Manual) PT INR Fibrinogen dRVVT Confirm Interp Factor V Activity POC ABG pH POC ABG pCO2 POC ABG pO2 ABG pO2 ABG HCO3 ABG Base Excess ABG Hemoglobin Oxyhemoglobin Sodium Potassium Chloride Carbon Dioxide BUN 59 H Creatinine Glucose 298 H POC Glucose 144 H 125 H Lactic Acid Calcium Phosphorus Magnesium Direct Bilirubin AST ALT Alkaline Phosphatase Lactate Dehydrogenase Troponin T C-Reactive Protein Total Protein Albumin Prealbumin Triglycerides Cholesterol LDL Cholesterol Direct HDL Cholesterol Urine pH Urine WBC (Auto) Urine Creatinine Urine Total Protein Fluid Total Protein Vancomycin Trough Rheumatoid Factor Complement C4 Miscellaneous Test Crossmatch 12/31/16 12/31/16 12/31/16 05:11 12:18 18:17 WBC RBC Hgb Hct MCV MCH MCHC RDW Plt Count Lymph % (Auto) [place] % (Auto) Lymph # [place] # Baso # Seg Neutrophils % Seg Neuts % (Manual) Lymphocytes % (Manual) Monocytes % (Manual) Eosinophils % (Manual) Basophils % (Manual) Nucleated RBC % Seg Neutrophils # Seg Neutrophils # Man Lymphocytes # (Manual) Monocytes # (Manual) Eosinophils # (Manual) Basophils # (Manual) PT INR Fibrinogen dRVVT Confirm Interp Factor V Activity POC ABG pH POC ABG pCO2 POC ABG pO2 ABG pO2 ABG HCO3 ABG Base Excess ABG Hemoglobin Oxyhemoglobin Sodium Potassium Chloride Carbon Dioxide BUN Creatinine Glucose POC Glucose 167 H 125 H 133 H Lactic Acid Calcium Phosphorus Magnesium Direct Bilirubin AST ALT Alkaline Phosphatase Lactate Dehydrogenase Troponin T C-Reactive Protein Total Protein Albumin Prealbumin Triglycerides Cholesterol LDL Cholesterol Direct HDL Cholesterol Urine pH Urine WBC (Auto) Urine Creatinine Urine Total Protein Fluid Total Protein Vancomycin Trough Rheumatoid Factor Complement C4 Miscellaneous Test Crossmatch 12/31/16 01/01/17 01/01/17 23:55 05:00 05:12 WBC RBC Hgb Hct MCV MCH MCHC RDW Plt Count Lymph % (Auto) [place] % (Auto) Lymph # [place] # Baso # Seg Neutrophils % Seg Neuts % (Manual) Lymphocytes % (Manual) Monocytes % (Manual) Eosinophils % (Manual) Basophils % (Manual) Nucleated RBC % Seg Neutrophils # Seg Neutrophils # Man Lymphocytes # (Manual) Monocytes # (Manual) Eosinophils # (Manual) Basophils # (Manual) PT INR Fibrinogen dRVVT Confirm Interp Factor V Activity POC ABG pH POC ABG pCO2 POC ABG pO2 ABG pO2 ABG HCO3 ABG Base Excess ABG Hemoglobin Oxyhemoglobin Sodium Potassium Chloride Carbon Dioxide BUN 76 H Creatinine 1.5 H Glucose 109 H POC Glucose 129 H 129 H Lactic Acid Calcium Phosphorus Magnesium Direct Bilirubin AST ALT Alkaline Phosphatase 536 H Lactate Dehydrogenase Troponin T C-Reactive Protein Total Protein Albumin 1.5 L Prealbumin Triglycerides Cholesterol LDL Cholesterol Direct HDL Cholesterol Urine pH Urine WBC (Auto) Urine Creatinine Urine Total Protein Fluid Total Protein Vancomycin Trough Rheumatoid Factor Complement C4 Miscellaneous Test Crossmatch 01/01/17 01/01/17 01/01/17 12:25 17:01 23:32 WBC RBC Hgb Hct MCV MCH MCHC RDW Plt Count Lymph % (Auto) [place] % (Auto) Lymph # [place] # Baso # Seg Neutrophils % Seg Neuts % (Manual) Lymphocytes % (Manual) Monocytes % (Manual) Eosinophils % (Manual) Basophils % (Manual) Nucleated RBC % Seg Neutrophils # Seg Neutrophils # Man Lymphocytes # (Manual) Monocytes # (Manual) Eosinophils # (Manual) Basophils # (Manual) PT INR Fibrinogen dRVVT Confirm Interp Factor V Activity POC ABG pH POC ABG pCO2 POC ABG pO2 ABG pO2 ABG HCO3 ABG Base Excess ABG Hemoglobin Oxyhemoglobin Sodium Potassium Chloride Carbon Dioxide BUN Creatinine Glucose POC Glucose 140 H 142 H 112 H Lactic Acid Calcium Phosphorus Magnesium Direct Bilirubin AST ALT Alkaline Phosphatase Lactate Dehydrogenase Troponin T C-Reactive Protein Total Protein Albumin Prealbumin Triglycerides Cholesterol LDL Cholesterol Direct HDL Cholesterol Urine pH Urine WBC (Auto) Urine Creatinine Urine Total Protein Fluid Total Protein Vancomycin Trough Rheumatoid Factor Complement C4 Miscellaneous Test Crossmatch 01/02/17 01/02/17 01/02/17 04:56 06:00 11:37 WBC RBC Hgb Hct MCV MCH MCHC RDW Plt Count Lymph % (Auto) [place] % (Auto) Lymph # [place] # Baso # Seg Neutrophils % Seg Neuts % (Manual) Lymphocytes % (Manual) Monocytes % (Manual) Eosinophils % (Manual) Basophils % (Manual) Nucleated RBC % Seg Neutrophils # Seg Neutrophils # Man Lymphocytes # (Manual) Monocytes # (Manual) Eosinophils # (Manual) Basophils # (Manual) PT INR Fibrinogen dRVVT Confirm Interp Factor V Activity POC ABG pH POC ABG pCO2 POC ABG pO2 ABG pO2 ABG HCO3 ABG Base Excess ABG Hemoglobin Oxyhemoglobin Sodium Potassium Chloride Carbon Dioxide BUN 88 H Creatinine 1.7 H Glucose 113 H POC Glucose 136 H 200 H Lactic Acid Calcium Phosphorus Magnesium Direct Bilirubin AST ALT Alkaline Phosphatase Lactate Dehydrogenase Troponin T C-Reactive Protein Total Protein Albumin Prealbumin Triglycerides Cholesterol LDL Cholesterol Direct HDL Cholesterol Urine pH Urine WBC (Auto) Urine Creatinine Urine Total Protein Fluid Total Protein Vancomycin Trough Rheumatoid Factor Complement C4 Miscellaneous Test Crossmatch 01/02/17 01/02/17 01/03/17 17:42 22:52 04:54 WBC RBC Hgb Hct MCV MCH MCHC RDW Plt Count Lymph % (Auto) [place] % (Auto) Lymph # [place] # Baso # Seg Neutrophils % Seg Neuts % (Manual) Lymphocytes % (Manual) Monocytes % (Manual) Eosinophils % (Manual) Basophils % (Manual) Nucleated RBC % Seg Neutrophils # Seg Neutrophils # Man Lymphocytes # (Manual) Monocytes # (Manual) Eosinophils # (Manual) Basophils # (Manual) PT INR Fibrinogen dRVVT Confirm Interp Factor V Activity POC ABG pH POC ABG pCO2 POC ABG pO2 ABG pO2 ABG HCO3 ABG Base Excess ABG Hemoglobin Oxyhemoglobin Sodium Potassium Chloride Carbon Dioxide BUN Creatinine Glucose POC Glucose 112 H 133 H 111 H Lactic Acid Calcium Phosphorus Magnesium Direct Bilirubin AST ALT Alkaline Phosphatase Lactate Dehydrogenase Troponin T C-Reactive Protein Total Protein Albumin Prealbumin Triglycerides Cholesterol LDL Cholesterol Direct HDL Cholesterol Urine pH Urine WBC (Auto) Urine Creatinine Urine Total Protein Fluid Total Protein Vancomycin Trough Rheumatoid Factor Complement C4 Miscellaneous Test Crossmatch 01/03/17 01/03/17 01/03/17 05:00 05:00 14:02 WBC 11.2 H RBC 2.56 L Hgb 7.2 L Hct 22.3 L MCV MCH MCHC RDW 17.3 H Plt Count Lymph % (Auto) [place] % (Auto) 10.0 H Lymph # [place] # 1.1 H Baso # Seg Neutrophils % 70.5 H Seg Neuts % (Manual) Lymphocytes % (Manual) Monocytes % (Manual) Eosinophils % (Manual) Basophils % (Manual) Nucleated RBC % Seg Neutrophils # 7.9 H Seg Neutrophils # Man Lymphocytes # (Manual) Monocytes # (Manual) Eosinophils # (Manual) Basophils # (Manual) PT INR Fibrinogen dRVVT Confirm Interp Factor V Activity POC ABG pH POC ABG pCO2 POC ABG pO2 ABG pO2 ABG HCO3 ABG Base Excess ABG Hemoglobin Oxyhemoglobin Sodium Potassium Chloride Carbon Dioxide BUN 60 H Creatinine 1.3 H Glucose 110 H POC Glucose 119 H Lactic Acid Calcium Phosphorus Magnesium Direct Bilirubin AST ALT Alkaline Phosphatase Lactate Dehydrogenase Troponin T C-Reactive Protein Total Protein Albumin Prealbumin Triglycerides Cholesterol LDL Cholesterol Direct HDL Cholesterol Urine pH Urine WBC (Auto) Urine Creatinine Urine Total Protein Fluid Total Protein Vancomycin Trough Rheumatoid Factor Complement C4 Miscellaneous Test Crossmatch 01/03/17 01/03/17 01/04/17 18:13 23:40 05:57 WBC RBC Hgb Hct MCV MCH MCHC RDW Plt Count Lymph % (Auto) [place] % (Auto) Lymph # [place] # Baso # Seg Neutrophils % Seg Neuts % (Manual) Lymphocytes % (Manual) Monocytes % (Manual) Eosinophils % (Manual) Basophils % (Manual) Nucleated RBC % Seg Neutrophils # Seg Neutrophils # Man Lymphocytes # (Manual) Monocytes # (Manual) Eosinophils # (Manual) Basophils # (Manual) PT INR Fibrinogen dRVVT Confirm Interp Factor V Activity POC ABG pH POC ABG pCO2 POC ABG pO2 ABG pO2 ABG HCO3 ABG Base Excess ABG Hemoglobin Oxyhemoglobin Sodium Potassium Chloride Carbon Dioxide BUN Creatinine Glucose POC Glucose 107 H 129 H 111 H Lactic Acid Calcium Phosphorus Magnesium Direct Bilirubin AST ALT Alkaline Phosphatase Lactate Dehydrogenase Troponin T C-Reactive Protein Total Protein Albumin Prealbumin Triglycerides Cholesterol LDL Cholesterol Direct HDL Cholesterol Urine pH Urine WBC (Auto) Urine Creatinine Urine Total Protein Fluid Total Protein Vancomycin Trough Rheumatoid Factor Complement C4 Miscellaneous Test Crossmatch 01/04/17 01/04/17 01/04/17 12:46 15:27 17:11 WBC RBC Hgb Hct MCV MCH MCHC RDW Plt Count Lymph % (Auto) [place] % (Auto) Lymph # [place] # Baso # Seg Neutrophils % Seg Neuts % (Manual) Lymphocytes % (Manual) Monocytes % (Manual) Eosinophils % (Manual) Basophils % (Manual) Nucleated RBC % Seg Neutrophils # Seg Neutrophils # Man Lymphocytes # (Manual) Monocytes # (Manual) Eosinophils # (Manual) Basophils # (Manual) PT INR Fibrinogen dRVVT Confirm Interp Factor V Activity POC ABG pH POC ABG pCO2 POC ABG pO2 ABG pO2 ABG HCO3 ABG Base Excess ABG Hemoglobin Oxyhemoglobin Sodium Potassium Chloride Carbon Dioxide BUN 43 H Creatinine Glucose 124 H POC Glucose 159 H 125 H Lactic Acid Calcium 8.0 L Phosphorus 2.10 L Magnesium Direct Bilirubin AST ALT Alkaline Phosphatase Lactate Dehydrogenase Troponin T C-Reactive Protein Total Protein Albumin Prealbumin Triglycerides Cholesterol LDL Cholesterol Direct HDL Cholesterol Urine pH Urine WBC (Auto) Urine Creatinine Urine Total Protein Fluid Total Protein Vancomycin Trough Rheumatoid Factor Complement C4 Miscellaneous Test Crossmatch 01/04/17 01/05/17 01/05/17 23:31 04:00 05:46 WBC RBC Hgb Hct MCV MCH MCHC RDW Plt Count Lymph % (Auto) [place] % (Auto) Lymph # [place] # Baso # Seg Neutrophils % Seg Neuts % (Manual) Lymphocytes % (Manual) Monocytes % (Manual) Eosinophils % (Manual) Basophils % (Manual) Nucleated RBC % Seg Neutrophils # Seg Neutrophils # Man Lymphocytes # (Manual) Monocytes # (Manual) Eosinophils # (Manual) Basophils # (Manual) PT INR Fibrinogen dRVVT Confirm Interp Factor V Activity POC ABG pH POC ABG pCO2 POC ABG pO2 ABG pO2 ABG HCO3 ABG Base Excess ABG Hemoglobin Oxyhemoglobin Sodium Potassium Chloride Carbon Dioxide BUN 52 H Creatinine 1.3 H Glucose 113 H POC Glucose 123 H 118 H Lactic Acid Calcium Phosphorus 2.40 L Magnesium Direct Bilirubin AST ALT Alkaline Phosphatase Lactate Dehydrogenase Troponin T C-Reactive Protein Total Protein Albumin Prealbumin Triglycerides Cholesterol LDL Cholesterol Direct HDL Cholesterol Urine pH Urine WBC (Auto) Urine Creatinine Urine Total Protein Fluid Total Protein Vancomycin Trough Rheumatoid Factor Complement C4 Miscellaneous Test Crossmatch 01/05/17 01/05/17 01/05/17 11:41 17:48 23:27 WBC RBC Hgb Hct MCV MCH MCHC RDW Plt Count Lymph % (Auto) [place] % (Auto) Lymph # [place] # Baso # Seg Neutrophils % Seg Neuts % (Manual) Lymphocytes % (Manual) Monocytes % (Manual) Eosinophils % (Manual) Basophils % (Manual) Nucleated RBC % Seg Neutrophils # Seg Neutrophils # Man Lymphocytes # (Manual) Monocytes # (Manual) Eosinophils # (Manual) Basophils # (Manual) PT INR Fibrinogen dRVVT Confirm Interp Factor V Activity POC ABG pH POC ABG pCO2 POC ABG pO2 ABG pO2 ABG HCO3 ABG Base Excess ABG Hemoglobin Oxyhemoglobin Sodium Potassium Chloride Carbon Dioxide BUN Creatinine Glucose POC Glucose 163 H 142 H 155 H Lactic Acid Calcium Phosphorus Magnesium Direct Bilirubin AST ALT Alkaline Phosphatase Lactate Dehydrogenase Troponin T C-Reactive Protein Total Protein Albumin Prealbumin Triglycerides Cholesterol LDL Cholesterol Direct HDL Cholesterol Urine pH Urine WBC (Auto) Urine Creatinine Urine Total Protein Fluid Total Protein Vancomycin Trough Rheumatoid Factor Complement C4 Miscellaneous Test Crossmatch 01/06/17 01/06/17 01/06/17 05:20 07:35 11:18 WBC RBC Hgb Hct MCV MCH MCHC RDW Plt Count Lymph % (Auto) [place] % (Auto) Lymph # [place] # Baso # Seg Neutrophils % Seg Neuts % (Manual) Lymphocytes % (Manual) Monocytes % (Manual) Eosinophils % (Manual) Basophils % (Manual) Nucleated RBC % Seg Neutrophils # Seg Neutrophils # Man Lymphocytes # (Manual) Monocytes # (Manual) Eosinophils # (Manual) Basophils # (Manual) PT INR Fibrinogen dRVVT Confirm Interp Factor V Activity POC ABG pH POC ABG pCO2 POC ABG pO2 ABG pO2 ABG HCO3 ABG Base Excess ABG Hemoglobin Oxyhemoglobin Sodium Potassium Chloride Carbon Dioxide BUN 74 H Creatinine 1.6 H Glucose 135 H POC Glucose 108 H 149 H Lactic Acid Calcium Phosphorus Magnesium Direct Bilirubin AST ALT Alkaline Phosphatase Lactate Dehydrogenase Troponin T C-Reactive Protein Total Protein Albumin Prealbumin Triglycerides Cholesterol LDL Cholesterol Direct HDL Cholesterol Urine pH Urine WBC (Auto) Urine Creatinine Urine Total Protein Fluid Total Protein Vancomycin Trough Rheumatoid Factor Complement C4 Miscellaneous Test Crossmatch 01/06/17 01/07/17 01/07/17 17:17 00:23 05:31 WBC RBC Hgb Hct MCV MCH MCHC RDW Plt Count Lymph % (Auto) [place] % (Auto) Lymph # [place] # Baso # Seg Neutrophils % Seg Neuts % (Manual) Lymphocytes % (Manual) Monocytes % (Manual) Eosinophils % (Manual) Basophils % (Manual) Nucleated RBC % Seg Neutrophils # Seg Neutrophils # Man Lymphocytes # (Manual) Monocytes # (Manual) Eosinophils # (Manual) Basophils # (Manual) PT INR Fibrinogen dRVVT Confirm Interp Factor V Activity POC ABG pH POC ABG pCO2 POC ABG pO2 ABG pO2 ABG HCO3 ABG Base Excess ABG Hemoglobin Oxyhemoglobin Sodium Potassium Chloride Carbon Dioxide BUN Creatinine Glucose POC Glucose 146 H 165 H 153 H Lactic Acid Calcium Phosphorus Magnesium Direct Bilirubin AST ALT Alkaline Phosphatase Lactate Dehydrogenase Troponin T C-Reactive Protein Total Protein Albumin Prealbumin Triglycerides Cholesterol LDL Cholesterol Direct HDL Cholesterol Urine pH Urine WBC (Auto) Urine Creatinine Urine Total Protein Fluid Total Protein Vancomycin Trough Rheumatoid Factor Complement C4 Miscellaneous Test Crossmatch 01/07/17 01/07/17 01/07/17 06:00 11:39 17:11 WBC RBC Hgb Hct MCV MCH MCHC RDW Plt Count Lymph % (Auto) [place] % (Auto) Lymph # [place] # Baso # Seg Neutrophils % Seg Neuts % (Manual) Lymphocytes % (Manual) Monocytes % (Manual) Eosinophils % (Manual) Basophils % (Manual) Nucleated RBC % Seg Neutrophils # Seg Neutrophils # Man Lymphocytes # (Manual) Monocytes # (Manual) Eosinophils # (Manual) Basophils # (Manual) PT INR Fibrinogen dRVVT Confirm Interp Factor V Activity POC ABG pH POC ABG pCO2 POC ABG pO2 ABG pO2 ABG HCO3 ABG Base Excess ABG Hemoglobin Oxyhemoglobin Sodium Potassium Chloride Carbon Dioxide BUN 42 H Creatinine Glucose 175 H POC Glucose 163 H 163 H Lactic Acid Calcium Phosphorus 2.40 L D Magnesium Direct Bilirubin AST ALT Alkaline Phosphatase Lactate Dehydrogenase Troponin T C-Reactive Protein Total Protein Albumin Prealbumin Triglycerides Cholesterol LDL Cholesterol Direct HDL Cholesterol Urine pH Urine WBC (Auto) Urine Creatinine Urine Total Protein Fluid Total Protein Vancomycin Trough Rheumatoid Factor Complement C4 Miscellaneous Test Crossmatch 01/07/17 01/08/17 01/08/17 23:40 05:00 05:00 WBC 27.4 H RBC 2.27 L Hgb 6.1 L Hct 20.4 L MCV MCH 27 L MCHC RDW 17.8 H Plt Count Lymph % (Auto) [place] % (Auto) Lymph # [place] # Baso # Seg Neutrophils % Seg Neuts % (Manual) Lymphocytes % (Manual) Monocytes % (Manual) Eosinophils % (Manual) Basophils % (Manual) Nucleated RBC % Seg Neutrophils # Seg Neutrophils # Man Lymphocytes # (Manual) Monocytes # (Manual) Eosinophils # (Manual) Basophils # (Manual) PT INR Fibrinogen dRVVT Confirm Interp Factor V Activity POC ABG pH POC ABG pCO2 POC ABG pO2 ABG pO2 ABG HCO3 ABG Base Excess ABG Hemoglobin Oxyhemoglobin Sodium Potassium Chloride Carbon Dioxide 16 L D BUN 62 H Creatinine 1.6 H D Glucose 103 H POC Glucose 135 H Lactic Acid Calcium Phosphorus Magnesium Direct Bilirubin AST ALT Alkaline Phosphatase Lactate Dehydrogenase Troponin T C-Reactive Protein Total Protein Albumin Prealbumin Triglycerides Cholesterol LDL Cholesterol Direct HDL Cholesterol Urine pH Urine WBC (Auto) Urine Creatinine Urine Total Protein Fluid Total Protein Vancomycin Trough Rheumatoid Factor Complement C4 Miscellaneous Test Crossmatch 01/08/17 01/08/17 01/08/17 05:25 10:37 10:37 WBC RBC Hgb Hct MCV MCH MCHC RDW Plt Count Lymph % (Auto) [place] % (Auto) Lymph # [place] # Baso # Seg Neutrophils % Seg Neuts % (Manual) Lymphocytes % (Manual) Monocytes % (Manual) Eosinophils % (Manual) Basophils % (Manual) Nucleated RBC % Seg Neutrophils # Seg Neutrophils # Man Lymphocytes # (Manual) Monocytes # (Manual) Eosinophils # (Manual) Basophils # (Manual) PT INR Fibrinogen dRVVT Confirm Interp Factor V Activity POC ABG pH POC ABG pCO2 POC ABG pO2 ABG pO2 ABG HCO3 ABG Base Excess ABG Hemoglobin Oxyhemoglobin Sodium Potassium Chloride Carbon Dioxide BUN Creatinine Glucose POC Glucose 106 H Lactic Acid Calcium Phosphorus Magnesium Direct Bilirubin AST ALT Alkaline Phosphatase Lactate Dehydrogenase Troponin T C-Reactive Protein 24.40 H Total Protein Albumin Prealbumin Triglycerides Cholesterol LDL Cholesterol Direct HDL Cholesterol Urine pH Urine WBC (Auto) Urine Creatinine Urine Total Protein Fluid Total Protein Vancomycin Trough Rheumatoid Factor Complement C4 Miscellaneous Test Crossmatch See Detail 01/08/17 01/08/17 01/08/17 10:37 11:33 15:15 WBC RBC Hgb Hct MCV MCH MCHC RDW Plt Count Lymph % (Auto) [place] % (Auto) Lymph # [place] # Baso # Seg Neutrophils % Seg Neuts % (Manual) Lymphocytes % (Manual) Monocytes % (Manual) Eosinophils % (Manual) Basophils % (Manual) Nucleated RBC % Seg Neutrophils # Seg Neutrophils # Man Lymphocytes # (Manual) Monocytes # (Manual) Eosinophils # (Manual) Basophils # (Manual) PT INR Fibrinogen dRVVT Confirm Interp Factor V Activity POC ABG pH POC ABG pCO2 POC ABG pO2 ABG pO2 ABG HCO3 ABG Base Excess ABG Hemoglobin Oxyhemoglobin Sodium Potassium Chloride Carbon Dioxide BUN Creatinine Glucose POC Glucose 157 H Lactic Acid 9.70 H* 9.10 H* Calcium Phosphorus Magnesium Direct Bilirubin AST ALT Alkaline Phosphatase Lactate Dehydrogenase Troponin T C-Reactive Protein Total Protein Albumin Prealbumin Triglycerides Cholesterol LDL Cholesterol Direct HDL Cholesterol Urine pH Urine WBC (Auto) Urine Creatinine Urine Total Protein Fluid Total Protein Vancomycin Trough Rheumatoid Factor Complement C4 Miscellaneous Test Crossmatch 01/08/17 01/08/17 01/09/17 17:19 23:12 04:40 WBC RBC Hgb Hct MCV MCH MCHC RDW Plt Count Lymph % (Auto) [place] % (Auto) Lymph # [place] # Baso # Seg Neutrophils % Seg Neuts % (Manual) Lymphocytes % (Manual) Monocytes % (Manual) Eosinophils % (Manual) Basophils % (Manual) Nucleated RBC % Seg Neutrophils # Seg Neutrophils # Man Lymphocytes # (Manual) Monocytes # (Manual) Eosinophils # (Manual) Basophils # (Manual) PT INR Fibrinogen dRVVT Confirm Interp Factor V Activity POC ABG pH POC ABG pCO2 POC ABG pO2 ABG pO2 ABG HCO3 ABG Base Excess ABG Hemoglobin Oxyhemoglobin Sodium 147 H Potassium Chloride Carbon Dioxide BUN 82 H Creatinine 1.8 H Glucose 137 H POC Glucose 164 H 157 H Lactic Acid Calcium Phosphorus Magnesium Direct Bilirubin AST ALT Alkaline Phosphatase Lactate Dehydrogenase Troponin T C-Reactive Protein Total Protein Albumin Prealbumin Triglycerides Cholesterol LDL Cholesterol Direct HDL Cholesterol Urine pH Urine WBC (Auto) Urine Creatinine Urine Total Protein Fluid Total Protein Vancomycin Trough Rheumatoid Factor Complement C4 Miscellaneous Test Crossmatch 01/09/17 01/09/17 01/09/17 05:42 08:22 10:57 WBC RBC Hgb Hct MCV MCH MCHC RDW Plt Count Lymph % (Auto) [place] % (Auto) Lymph # [place] # Baso # Seg Neutrophils % Seg Neuts % (Manual) Lymphocytes % (Manual) Monocytes % (Manual) Eosinophils % (Manual) Basophils % (Manual) Nucleated RBC % Seg Neutrophils # Seg Neutrophils # Man Lymphocytes # (Manual) Monocytes # (Manual) Eosinophils # (Manual) Basophils # (Manual) PT INR Fibrinogen dRVVT Confirm Interp Factor V Activity POC ABG pH POC ABG pCO2 POC ABG pO2 ABG pO2 ABG HCO3 ABG Base Excess ABG Hemoglobin Oxyhemoglobin Sodium Potassium Chloride Carbon Dioxide BUN Creatinine Glucose POC Glucose 156 H 122 H Lactic Acid 2.30 H* Calcium Phosphorus Magnesium Direct Bilirubin AST ALT Alkaline Phosphatase Lactate Dehydrogenase Troponin T C-Reactive Protein Total Protein Albumin Prealbumin Triglycerides Cholesterol LDL Cholesterol Direct HDL Cholesterol Urine pH Urine WBC (Auto) Urine Creatinine Urine Total Protein Fluid Total Protein Vancomycin Trough Rheumatoid Factor Complement C4 Miscellaneous Test Crossmatch 01/09/17 01/09/17 01/09/17 13:30 17:14 18:45 WBC RBC Hgb Hct MCV MCH MCHC RDW Plt Count Lymph % (Auto) [place] % (Auto) Lymph # [place] # Baso # Seg Neutrophils % Seg Neuts % (Manual) Lymphocytes % (Manual) Monocytes % (Manual) Eosinophils % (Manual) Basophils % (Manual) Nucleated RBC % Seg Neutrophils # Seg Neutrophils # Man Lymphocytes # (Manual) Monocytes # (Manual) Eosinophils # (Manual) Basophils # (Manual) PT INR Fibrinogen dRVVT Confirm Interp Factor V Activity POC ABG pH POC ABG pCO2 POC ABG pO2 ABG pO2 ABG HCO3 ABG Base Excess ABG Hemoglobin Oxyhemoglobin Sodium Potassium Chloride Carbon Dioxide BUN Creatinine Glucose POC Glucose 127 H Lactic Acid Calcium Phosphorus Magnesium Direct Bilirubin AST ALT Alkaline Phosphatase Lactate Dehydrogenase Troponin T C-Reactive Protein 24.70 H Total Protein Albumin Prealbumin Triglycerides Cholesterol LDL Cholesterol Direct HDL Cholesterol Urine pH Urine WBC (Auto) Urine Creatinine Urine Total Protein Fluid Total Protein Vancomycin Trough Rheumatoid Factor Complement C4 Miscellaneous Test Flexitest 1 H Crossmatch 01/10/17 01/10/17 01/10/17 01:21 04:00 04:00 WBC 18.1 H RBC 3.22 L Hgb 8.8 L Hct 27.0 L D MCV MCH 27 L MCHC RDW 17.0 H Plt Count Lymph % (Auto) [place] % (Auto) Lymph # [place] # Baso # Seg Neutrophils % Seg Neuts % (Manual) Lymphocytes % (Manual) Monocytes % (Manual) Eosinophils % (Manual) Basophils % (Manual) Nucleated RBC % Seg Neutrophils # Seg Neutrophils # Man Lymphocytes # (Manual) Monocytes # (Manual) Eosinophils # (Manual) Basophils # (Manual) PT INR Fibrinogen dRVVT Confirm Interp Factor V Activity POC ABG pH POC ABG pCO2 POC ABG pO2 ABG pO2 ABG HCO3 ABG Base Excess ABG Hemoglobin Oxyhemoglobin Sodium Potassium Chloride Carbon Dioxide BUN 59 H Creatinine 1.3 H Glucose 122 H POC Glucose 160 H Lactic Acid Calcium Phosphorus Magnesium Direct Bilirubin AST ALT Alkaline Phosphatase Lactate Dehydrogenase Troponin T C-Reactive Protein Total Protein Albumin Prealbumin Triglycerides Cholesterol LDL Cholesterol Direct HDL Cholesterol Urine pH Urine WBC (Auto) Urine Creatinine Urine Total Protein Fluid Total Protein Vancomycin Trough Rheumatoid Factor Complement C4 Miscellaneous Test Crossmatch 01/10/17 01/10/17 01/10/17 05:36 12:14 17:55 WBC RBC Hgb Hct MCV MCH MCHC RDW Plt Count Lymph % (Auto) [place] % (Auto) Lymph # [place] # Baso # Seg Neutrophils % Seg Neuts % (Manual) Lymphocytes % (Manual) Monocytes % (Manual) Eosinophils % (Manual) Basophils % (Manual) Nucleated RBC % Seg Neutrophils # Seg Neutrophils # Man Lymphocytes # (Manual) Monocytes # (Manual) Eosinophils # (Manual) Basophils # (Manual) PT INR Fibrinogen dRVVT Confirm Interp Factor V Activity POC ABG pH POC ABG pCO2 POC ABG pO2 ABG pO2 ABG HCO3 ABG Base Excess ABG Hemoglobin Oxyhemoglobin Sodium Potassium Chloride Carbon Dioxide BUN Creatinine Glucose POC Glucose 163 H 120 H 144 H Lactic Acid Calcium Phosphorus Magnesium Direct Bilirubin AST ALT Alkaline Phosphatase Lactate Dehydrogenase Troponin T C-Reactive Protein Total Protein Albumin Prealbumin Triglycerides Cholesterol LDL Cholesterol Direct HDL Cholesterol Urine pH Urine WBC (Auto) Urine Creatinine Urine Total Protein Fluid Total Protein Vancomycin Trough Rheumatoid Factor Complement C4 Miscellaneous Test Crossmatch 01/11/17 01/11/17 01/11/17 00:09 04:00 04:00 WBC 15.8 H RBC 3.04 L Hgb 8.2 L Hct 25.5 L MCV MCH 27 L MCHC RDW 17.3 H Plt Count Lymph % (Auto) [place] % (Auto) Lymph # [place] # Baso # Seg Neutrophils % Seg Neuts % (Manual) Lymphocytes % (Manual) Monocytes % (Manual) Eosinophils % (Manual) Basophils % (Manual) Nucleated RBC % Seg Neutrophils # Seg Neutrophils # Man Lymphocytes # (Manual) Monocytes # (Manual) Eosinophils # (Manual) Basophils # (Manual) PT INR Fibrinogen dRVVT Confirm Interp Factor V Activity POC ABG pH POC ABG pCO2 POC ABG pO2 ABG pO2 ABG HCO3 ABG Base Excess ABG Hemoglobin Oxyhemoglobin Sodium Potassium Chloride Carbon Dioxide BUN 78 H Creatinine 1.6 H Glucose 109 H POC Glucose 122 H Lactic Acid Calcium Phosphorus Magnesium Direct Bilirubin AST ALT Alkaline Phosphatase Lactate Dehydrogenase Troponin T C-Reactive Protein Total Protein Albumin Prealbumin Triglycerides Cholesterol LDL Cholesterol Direct HDL Cholesterol Urine pH Urine WBC (Auto) Urine Creatinine Urine Total Protein Fluid Total Protein Vancomycin Trough Rheumatoid Factor Complement C4 Miscellaneous Test Crossmatch 01/11/17 01/11/17 01/11/17 12:46 18:23 23:42 WBC RBC Hgb Hct MCV MCH MCHC RDW Plt Count Lymph % (Auto) [place] % (Auto) Lymph # [place] # Baso # Seg Neutrophils % Seg Neuts % (Manual) Lymphocytes % (Manual) Monocytes % (Manual) Eosinophils % (Manual) Basophils % (Manual) Nucleated RBC % Seg Neutrophils # Seg Neutrophils # Man Lymphocytes # (Manual) Monocytes # (Manual) Eosinophils # (Manual) Basophils # (Manual) PT INR Fibrinogen dRVVT Confirm Interp Factor V Activity POC ABG pH POC ABG pCO2 POC ABG pO2 ABG pO2 ABG HCO3 ABG Base Excess ABG Hemoglobin Oxyhemoglobin Sodium Potassium Chloride Carbon Dioxide BUN Creatinine Glucose POC Glucose 148 H 125 H 124 H Lactic Acid Calcium Phosphorus Magnesium Direct Bilirubin AST ALT Alkaline Phosphatase Lactate Dehydrogenase Troponin T C-Reactive Protein Total Protein Albumin Prealbumin Triglycerides Cholesterol LDL Cholesterol Direct HDL Cholesterol Urine pH Urine WBC (Auto) Urine Creatinine Urine Total Protein Fluid Total Protein Vancomycin Trough Rheumatoid Factor Complement C4 Miscellaneous Test Crossmatch 01/12/17 01/12/17 01/12/17 04:30 04:30 05:47 WBC 15.8 H RBC 3.31 L Hgb 8.9 L Hct 27.9 L MCV MCH 27 L MCHC RDW 17.4 H Plt Count Lymph % (Auto) [place] % (Auto) Lymph # [place] # Baso # Seg Neutrophils % Seg Neuts % (Manual) Lymphocytes % (Manual) Monocytes % (Manual) Eosinophils % (Manual) Basophils % (Manual) Nucleated RBC % Seg Neutrophils # Seg Neutrophils # Man Lymphocytes # (Manual) Monocytes # (Manual) Eosinophils # (Manual) Basophils # (Manual) PT INR Fibrinogen dRVVT Confirm Interp Factor V Activity POC ABG pH POC ABG pCO2 POC ABG pO2 ABG pO2 ABG HCO3 ABG Base Excess ABG Hemoglobin Oxyhemoglobin Sodium Potassium Chloride Carbon Dioxide BUN 57 H Creatinine Glucose 121 H POC Glucose 110 H Lactic Acid Calcium Phosphorus 2.10 L Magnesium Direct Bilirubin AST ALT Alkaline Phosphatase Lactate Dehydrogenase Troponin T C-Reactive Protein Total Protein Albumin Prealbumin Triglycerides Cholesterol LDL Cholesterol Direct HDL Cholesterol Urine pH Urine WBC (Auto) Urine Creatinine Urine Total Protein Fluid Total Protein Vancomycin Trough Rheumatoid Factor Complement C4 Miscellaneous Test Crossmatch 01/12/17 01/12/17 01/12/17 11:35 17:45 23:14 WBC RBC Hgb Hct MCV MCH MCHC RDW Plt Count Lymph % (Auto) [place] % (Auto) Lymph # [place] # Baso # Seg Neutrophils % Seg Neuts % (Manual) Lymphocytes % (Manual) Monocytes % (Manual) Eosinophils % (Manual) Basophils % (Manual) Nucleated RBC % Seg Neutrophils # Seg Neutrophils # Man Lymphocytes # (Manual) Monocytes # (Manual) Eosinophils # (Manual) Basophils # (Manual) PT INR Fibrinogen dRVVT Confirm Interp Factor V Activity POC ABG pH POC ABG pCO2 POC ABG pO2 ABG pO2 ABG HCO3 ABG Base Excess ABG Hemoglobin Oxyhemoglobin Sodium Potassium Chloride Carbon Dioxide BUN Creatinine Glucose POC Glucose 146 H 117 H 123 H Lactic Acid Calcium Phosphorus Magnesium Direct Bilirubin AST ALT Alkaline Phosphatase Lactate Dehydrogenase Troponin T C-Reactive Protein Total Protein Albumin Prealbumin Triglycerides Cholesterol LDL Cholesterol Direct HDL Cholesterol Urine pH Urine WBC (Auto) Urine Creatinine Urine Total Protein Fluid Total Protein Vancomycin Trough Rheumatoid Factor Complement C4 Miscellaneous Test Crossmatch 01/13/17 01/13/17 01/13/17 05:32 06:00 12:17 WBC RBC Hgb Hct MCV MCH MCHC RDW Plt Count Lymph % (Auto) [place] % (Auto) Lymph # [place] # Baso # Seg Neutrophils % Seg Neuts % (Manual) Lymphocytes % (Manual) Monocytes % (Manual) Eosinophils % (Manual) Basophils % (Manual) Nucleated RBC % Seg Neutrophils # Seg Neutrophils # Man Lymphocytes # (Manual) Monocytes # (Manual) Eosinophils # (Manual) Basophils # (Manual) PT INR Fibrinogen dRVVT Confirm Interp Factor V Activity POC ABG pH POC ABG pCO2 POC ABG pO2 ABG pO2 ABG HCO3 ABG Base Excess ABG Hemoglobin Oxyhemoglobin Sodium Potassium Chloride Carbon Dioxide BUN 80 H Creatinine 1.4 H Glucose 106 H POC Glucose 106 H 168 H Lactic Acid Calcium Phosphorus Magnesium Direct Bilirubin AST ALT Alkaline Phosphatase Lactate Dehydrogenase Troponin T C-Reactive Protein Total Protein Albumin Prealbumin Triglycerides Cholesterol LDL Cholesterol Direct HDL Cholesterol Urine pH Urine WBC (Auto) Urine Creatinine Urine Total Protein Fluid Total Protein Vancomycin Trough Rheumatoid Factor Complement C4 Miscellaneous Test Crossmatch 01/13/17 01/13/17 01/13/17 15:50 17:30 23:42 WBC RBC Hgb Hct MCV MCH MCHC RDW Plt Count Lymph % (Auto) [place] % (Auto) Lymph # [place] # Baso # Seg Neutrophils % Seg Neuts % (Manual) Lymphocytes % (Manual) Monocytes % (Manual) Eosinophils % (Manual) Basophils % (Manual) Nucleated RBC % Seg Neutrophils # Seg Neutrophils # Man Lymphocytes # (Manual) Monocytes # (Manual) Eosinophils # (Manual) Basophils # (Manual) PT 15.4 H INR 1.16 H Fibrinogen dRVVT Confirm Interp Factor V Activity POC ABG pH POC ABG pCO2 POC ABG pO2 ABG pO2 ABG HCO3 ABG Base Excess ABG Hemoglobin Oxyhemoglobin Sodium Potassium Chloride Carbon Dioxide BUN Creatinine Glucose POC Glucose 110 H 155 H Lactic Acid Calcium Phosphorus Magnesium Direct Bilirubin AST ALT Alkaline Phosphatase Lactate Dehydrogenase Troponin T C-Reactive Protein Total Protein Albumin Prealbumin Triglycerides Cholesterol LDL Cholesterol Direct HDL Cholesterol Urine pH Urine WBC (Auto) Urine Creatinine Urine Total Protein Fluid Total Protein Vancomycin Trough Rheumatoid Factor Complement C4 Miscellaneous Test Crossmatch 01/14/17 01/14/17 05:24 05:30 WBC RBC Hgb Hct MCV MCH MCHC RDW Plt Count Lymph % (Auto) [place] % (Auto) Lymph # [place] # Baso # Seg Neutrophils % Seg Neuts % (Manual) Lymphocytes % (Manual) Monocytes % (Manual) Eosinophils % (Manual) Basophils % (Manual) Nucleated RBC % Seg Neutrophils # Seg Neutrophils # Man Lymphocytes # (Manual) Monocytes # (Manual) Eosinophils # (Manual) Basophils # (Manual) PT INR Fibrinogen dRVVT Confirm Interp Factor V Activity POC ABG pH POC ABG pCO2 POC ABG pO2 ABG pO2 ABG HCO3 ABG Base Excess ABG Hemoglobin Oxyhemoglobin Sodium Potassium Chloride Carbon Dioxide BUN 58 H Creatinine Glucose 114 H POC Glucose 121 H Lactic Acid Calcium Phosphorus Magnesium Direct Bilirubin AST ALT Alkaline Phosphatase Lactate Dehydrogenase Troponin T C-Reactive Protein Total Protein Albumin Prealbumin Triglycerides Cholesterol LDL Cholesterol Direct HDL Cholesterol Urine pH Urine WBC (Auto) Urine Creatinine Urine Total Protein Fluid Total Protein Vancomycin Trough Rheumatoid Factor Complement C4 Miscellaneous Test Crossmatch Allied health notes reviewed: RT
[2017-01-14] MEDS: HEPARIN SUB-Q SCH (10:05)
[2017-01-14] MEDS: PROTONIX FEEDTUBE SCH (10:19)
[2017-01-14] MEDS: NACL 0.9% IV SCH (10:19)
[2017-01-14] MEDS: MERREM IV SCH (10:19)
[2017-01-14] MEDS: ROBINUL PO SCH (10:19)
[2017-01-14] MEDS: NORVASC PO SCH (10:20)
[2017-01-14] MEDS: DAKIN'S HALF STRENGTH TP SCH (10:20)
[2017-01-14] MEDS: CORDARONE PO SCH (10:39)
--- NOTE | 2017-01-14 10:45 | Progress Note ---
Assessment and Plan Assessment: 1) Recurrent SIRS: unclear source, better. Unclear source. DDx-infected sacral decubiti, recurrent UTI, VAP ?? 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 3) History of Candidemia: -Blood cultures positive for Silvia albicans on 09/23 and 09/25 -Blood cultures negative on 09/30 -PICC line changed on 10/03 -Source ? gastric perf (PEG placed on 09/20) +/- TPN +/- central lines -TTE 10/07 no vegetations -PICC exchanged on 10/03 -fully treated with micafungin for 14 days last day 10/13 4) History CA-UTI s/p gutierrez exchanged 5) Diarrhea - ? etiology ? antibiotic-induced, not better. 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 from GI bleed 13) Recent abdominal wall abscess at surgical site-treated 14 ) Recent Enterococcal bacteremia from PICC line infection. 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 no cultures obtained 16) Presumed VAP: sputum + MDR Pseudomonas / Proteus Plan: -obtain wound cultures - pending - discussed with wound care -continue meropenem day 7 (if she has sacral osteo will do 4 weeks) -overall prognosis very poor I will be back on Monday Thank you Dr Hodges for your consultation, will follow up with you. Pauline Carias MD Infectious Diseases Specialist [facility] ([facility] M [phone] O [phone] Subjective Date of service: 01/14/17 Principal diagnosis: Acute resp failure on MVS; S/P Acute CVA; Acute Encephalopathy; JUANITA Interval history: Interval history: remains on the vent via trach no fever, off pressors, + TPN Microbiology: Blood cultures: 09/13 neg / Silvia albicans 09/25 Silvia 09/29 neg 10/07 neg 11/05 neg 11/07 ngtd 10/3 E faecalis 1 of 4 bottles 11/25 neg 11 neg 01/09 ngtd Urine cultures: 09/10 neg 09/13 neg 8 10-100K mixed species 10/07 neg 11/05 VRE 11/07 mixed bacteria Respiratory cultures: 09/07 neg 09/13 neg 09/23 neg 11/07 MDR Pseudomonas 10 tracheal + VRE 01/09 GNRs x 4 Wound cultures: 10/17 abd wall wound purulence + Pseudomonas MDR Stool cultures: cath tip 11/07 + [employer] Current Antimicrobials: meropenem 01/08 Previous Antimicrobials: Zosyn 10/07 Vancomycin PO 10/01 Metronidazole 09/25 Micafungin 09/27-10/13 Meropenem 10/10 Vanco 10/17 zosyn 10/21 Cefepime 11/10 vancomyin 11/07 fluconazole 10/19 cefepime 10/29levaquin 11/05 vanco 11/23 Objective - Exam Narrative Exam: General appearance: alert non communicative, on the vent via trach no following commands Eyes: anicteric sclera, moist conjunctivae; PERRLA HENT: Atraumatic; oropharynx limited; Normal external ears. +NGT with greenish secretion Neck: +trach in place; supple, no thyromegaly or lymphadenopathy Lungs: brit coarse BS CV: rrr Abdomen: Soft, non-tender, +old PEG site no drainage. +iliostomy. 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 Neuro: alert non verbal on the vent. Lines: PICC / gutierrez - Constitutional Vitals: Vital Signs Temp Pulse Resp BP Pulse Ox 98.4 F 95 H 26 H 106/60 98 01/14/17 08:00 01/14/17 10:20 01/14/17 08:47 01/14/17 10:20 01/14/17 08:37 Temperature -Last 24 Hours Temperature 98.4 F Temperature 98.6 F Temperature 98.3 F Temperature 99.1 F Temperature 98.9 F Temperature 98.5 F Temperature 98.4 F - Labs CBC & Chem 7: 01/12/17 04:30 01/14/17 05:30 Labs: Abnormal lab results 01/13/17 01/13/17 01/13/17 Range/Units 12:17 15:50 17:30 PT 15.4 H (12.2-14.9) Sec. INR 1.16 H (0.87-1.13) BUN (7-17) mg/dL Glucose (65-100) mg/dL POC Glucose 168 H 110 H (70-105) 01/13/17 01/14/17 01/14/17 Range/Units 23:42 05:24 05:30 PT (12.2-14.9) Sec. INR (0.87-1.13) BUN 58 H (7-17) mg/dL Glucose 114 H (65-100) mg/dL POC Glucose 155 H 121 H (70-105)
--- NOTE | 2017-01-14 12:53 | Ultrasound Report ---
ULTRASOUND GUIDED RIGHT THORACENTESIS: 01/14/17 09:00:00 CLINICAL: Moderate size pleural effusion. FINDINGS: Ultrasound demonstrated a moderate sized left pleural effusion. Consent for the procedure was obtained from a family member. The patient was unresponsive to my words and was positioned in the left lateral decubitus position on a ventilator. Using sterile technique, ultrasound guidance, 1% lidocaine and a 5-[place] Yueh catheter, a right thoracentesis was performed with the patient in the left lateral decubitus position. Only 45 cc of cloudy yellow fluid was removed and sent to the lab for analysis. Attempts to obtain more fluid were unsuccessful. The patient tolerated the procedure well and there were no apparent complications. She did not respond to either the needlestick or the lidocaine injection. Post procedure chest x-ray findings are pending. IMPRESSION: Uncomplicated right thoracentesis with only 45 cc of cloudy yellow fluid removed.
--- NOTE | 2017-01-14 13:25 | XRay Report ---
AP CHEST :01/14/17 13:09 CLINICAL: Immediately status post right thoracentesis. COMPARISON:01/02/17 FINDINGS: No significant change in the degree of opacification of the right hemithorax compared to the prior exam. No pneumothorax. The left hemithorax has become relatively clear. Stable cardiomegaly. Normal pulmonary vessels. Tubes are in satisfactory and unchanged. A left PICC line tip is in the SVC. IMPRESSION: No pneumothorax status post right thoracentesis. Persistent right pleural effusion.
[2017-01-14 13:58] LABS: Total Cells Counted 100 /mm3
--- NOTE | 2017-01-14 14:09 | Progress Note ---
Subjective Principal diagnosis: Acute resp failure on MVS; S/P Acute CVA; Acute Encephalopathy; JUANITA Interval history: Patient was seen today for follow-up, on many renal related issues remains on ventilator Vitals labs intake and output medications were reviewed from today Allergies: Reviewed Social history: Reviewed Family history: Reviewed Physical examination HEENT: Oral mucosa moist no pharyngeal erythema Neck: Supple no JVD Chest:few bilateral basilar crackles noted Heart: Regular rate and rhythm S1-S2 heard no S3-S4 Abdomen: Soft nontender no renal bruit no CVA tenderness no suprapubic fullness Extremity: Mild edema dry skin no peripheral cyanosis pulses palpable Musculoskeletal: No joint effusion noted Assessment and plan Renal failure patient remains oliguric dialysis dependent 3 times a week, as planned current dialysis access is working well Continue to monitor renal failure related labs, periodically in her case Status post cardiac arrest, respiratory failure, seizure disorder Multiple comorbidities including peritonitis, candidemia, urinary tract infection, diarrhea, CVA left-sided, abdominal wall abscess Continue with hemodialysis ultrafiltration as tolerated Other management per primary team and other specialities Overall prognosis ordered to poor Objective - Vital Signs Vital signs: Vital Signs - 12hr 01/14/17 01/14/17 01/14/17 03:00 03:17 03:24 Temperature 98.6 F Pulse Rate 95 H 93 H Pulse Rate [ Apical] Pulse Rate [ Bilateral Throughout] Pulse Rate [ From Monitor] Respiratory 25 H Rate Respiratory Rate [Bilateral Throughout] Blood Pressure 124/81 115/75 O2 Sat by Pulse 100 100 Oximetry 01/14/17 01/14/17 01/14/17 04:00 05:00 05:23 Temperature Pulse Rate 95 H 92 H 95 H Pulse Rate [ 88 Apical] Pulse Rate [ Bilateral Throughout] Pulse Rate [ 88 From Monitor] Respiratory 16 13 Rate Respiratory Rate [Bilateral Throughout] Blood Pressure 128/73 128/76 125/76 O2 Sat by Pulse 100 100 Oximetry 01/14/17 01/14/17 01/14/17 05:24 06:00 07:00 Temperature Pulse Rate 94 H 89 81 Pulse Rate [ Apical] Pulse Rate [ Bilateral Throughout] Pulse Rate [ From Monitor] Respiratory 14 19 Rate Respiratory Rate [Bilateral Throughout] Blood Pressure 125/76 124/70 86/41 O2 Sat by Pulse 100 99 Oximetry 01/14/17 01/14/17 01/14/17 08:00 08:34 08:37 Temperature 98.4 F Pulse Rate 91 H 91 H 90 Pulse Rate [ Apical] Pulse Rate [ Bilateral Throughout] Pulse Rate [ 87 From Monitor] Respiratory 19 23 Rate Respiratory Rate [Bilateral Throughout] Blood Pressure 111/53 103/56 103/56 O2 Sat by Pulse 99 100 98 Oximetry 01/14/17 01/14/17 01/14/17 08:40 08:47 09:00 Temperature Pulse Rate 91 H Pulse Rate [ Apical] Pulse Rate [ 90 91 H Bilateral Throughout] Pulse Rate [ From Monitor] Respiratory 11 L Rate Respiratory 32 H 26 H Rate [Bilateral Throughout] Blood Pressure 113/59 O2 Sat by Pulse 99 Oximetry 01/14/17 01/14/17 01/14/17 10:00 10:20 12:00 Temperature 97.8 F Pulse Rate 93 H 95 H Pulse Rate [ Apical] Pulse Rate [ Bilateral Throughout] Pulse Rate [ 92 H From Monitor] Respiratory 33 H 28 H Rate Respiratory Rate [Bilateral Throughout] Blood Pressure 106/58 106/60 O2 Sat by Pulse 96 93 Oximetry 01/14/17 01/14/17 12:39 13:21 Temperature Pulse Rate 101 H 92 H Pulse Rate [ Apical] Pulse Rate [ Bilateral Throughout] Pulse Rate [ From Monitor] Respiratory Rate Respiratory Rate [Bilateral Throughout] Blood Pressure 109/70 99/53 O2 Sat by Pulse 98 Oximetry - Lab 01/15/17 12:45 01/15/17 12:45 Most recent lab results ABG pH 7.450 pH Units (7.350-7.450) 12/05/16 Unknown ABG pCO2 29.6 mm Hg 12/05/16 Unknown ABG pO2 75.2 mm Hg (80.0-90.0) L 12/05/16 Unknown ABG HCO3 20.1 mmol/L (20.0-26.0) 12/05/16 Unknown ABG O2 Saturation 96.8 % (95.0-99.0) 12/05/16 Unknown Calcium 8.7 mg/dL (8.4-10.2) 01/14/17 05:30 Phosphorus 3.10 mg/dL (2.5-4.5) 01/14/17 05:30 Magnesium 1.90 mg/dL (1.7-2.3) 01/14/17 05:30 Urine Creatinine 19.7 mg/dL (0.1-20.0) 11/12/16 10:18 Urine Sodium 36 mEq/L 09/16/16 19:19 Urine Total Protein 16 mg/dL (5-11.8) H 09/16/16 19:19
[2017-01-14] MEDS ORDERED: TPN ADULT IV SCH ×2 (20:00)
[2017-01-15] MEDS: DUONEB *Not for PRN Use IH SCH ×4 (01:19→21:03)
[2017-01-15] MEDS: HumuLIN R SUB-Q SCH ×4 (01:37→18:32)
[2017-01-15] MEDS: APRESOLINE PO SCH ×4 (01:39→22:44)
[2017-01-15] MEDS: LOPRESSOR PO SCH ×5 (01:40→18:29)
[2017-01-15] MEDS: HEPARIN SUB-Q SCH ×3 (01:57→22:35)
[2017-01-15] MEDS: CORDARONE PO SCH ×3 (01:58→22:35)
[2017-01-15] MEDS: ROBINUL PO SCH ×3 (02:04→22:35)
[2017-01-15] MEDS: REGLAN IV SCH ×4 (02:05→22:42)
[2017-01-15] MEDS: DAKIN'S HALF STRENGTH TP SCH ×3 (05:56→22:43)
--- NOTE | 2017-01-15 09:09 | Progress Note ---
Assessment and Plan Assessment and plan: Patient is 46-year-old woman with a history of hypertension, diabetes mellitus, asthma, hyperlipidemia, chronic kidney disease and anxiety, who was brought in by family because she couldn't get her words out, her face was also twisted, she was admitted for acute CVA and accelerated hypertension, she had a hx of poor adherence with her medications, and uncontrolled htn. Patient's SBP on admission was noted be greater than 260. TPA was started but this it was discontinued after 5 minutes because her blood pressure became uncontrolled. The TPA was not initiated again because the patient was outside the TPA window. Patient has had a prolonged hospital stay complicated with recurrent severe sepsis. Patient with most recent event also status post cardiac arrest on and received CPR. -Severe Sepsis with septic shock (shock resolved) Patient with multiple episodes of sepsis. Initial episode due to presumed aspiration pneumonia and septic episode on 09/23 from candidemia, then a third episode from peritonitis from gastric perforation from dislodged PEG +/-UTI. Patient was also noted to have had Candidemia with Blood cultures positive for Silvia albicans 09/23, 09/25 but negative on 09/30. Antibiotic discontinued on 12/05 per ID. patient is s/p R thoracentesis on 11/14, 240cc of serous fluid removed, cx of fluid was negative. Also, Stool negative for C. difficile -Surgical wound infection/gram-negative sepsis/candidemia/peritonitis/fungemia. Continue wound care to ostomy sites -Acute hypoxic respiratory failure, status post tracheostomy Patient placed back on ventilation. Patient currently with CPAP mode. Patient failed T-piece trials. Tracheostomy tube leak. Pulmonary following -Acute massive CVA with mass effect; continue antiplatelets and statins CT showed continued evolution of left MCA infarct with slight mass effect and edema, and there is no hemorrhage -PRINCE showed hyperdynamic ventricle with ef of 75%, neither clot nor septal defect seen -MRA Brain shows near complete occlusion of M2 and M3 of the left MCA carotid doppler negative -Echo shows preserved systolic function but does show some left ventricular diastolic dysfunction -continue asa and statin -Oliguric acute kidney injury. Etiology secondary to ATN on CKD. Baseline creatinine is approximately 1.7. -Dislodged PEG tube: Status post repair of gastric perforation which wedge gastrectomy -Paroxysmal atrial fibrillation with rapid ventricular rate, failed cardioversion Continue current medications, Not a candidate for anticoagulation secondary to anemia, thrombocytopenia and massive CVA -Anemia; probably secondary to GI bleeding Patient received multiple units of PRBC in the past, hemoglobin currently stable -Toxic metabolic encephalopathy; supportive care -Diabetes mellitus type 2, Insulin/SSI -Severe protein caloric malnutrition, cont TPN -s/p Thrombocytopenia. Now resolved -DVT prophylaxis, SCDs, no pharmacological agent given anemia , thrombocytopenia , massive stroke -Full code status, very poor prognosis now on TPN 12/18/16: yesterday pt became hypotensive after dialysis and Vasopressin was started by Dr. Lara. She was given iv hydralazine overnight. She is still on Vasopressin, now back in AFib/aflutter with RVR. i d/w Dr. Rollins who recommends iv amiodarone drip without bolus. I also spoke with [facility], Dr. De Leon. per Dr. Rollins: Paroxysmal Afib s/p failed cardioversion on 09/25 on IV lopressor for suppression considered not a candidate for anticoagulation due to severe anemia requiring blood transfusion 12/19/16: still on vasopressin, convert back to sinus, not on Amiodarone. Still on TPN, reorder restraints 01/09/17: I am back on Ms. العراقي' care team Ethics consult pending, family refuse hospice, Insurance denied LTACH When abdominal wound heals, ?place PEG and send to senior care. Patient now on recurrent anemia requiring 2 units packed red blood cell: ccm is following Severe Leukocytosis, re-consulted ID. If leukocytosis is not improving should repeat CT abdomen and pelvis to rule out ischemic bowel==>not done, Cr increased to 1.8 today. Will repeat labs in am The high probability of a clinically significant, sudden or life threatening deterioration of the [neurologic, CV] system(s) required my full and direct attention, intervention and personal management. The aggregate critical care time was [32] minutes. This time is in addition to time spent performing reported procedures but includes the following: [x] Data Review and interpretation [x] Patient assessment and monitoring of vital signs [x] Documentation [x] Medication orders and management 01/10/17 Cr has increase, will check electrolytes. Ethics committee awaiting for family meeting but some family has not provided Zulay, case management with their available times. Hopefully, family after the iday 01/11/17 Hemodialysis today, no change. 01/12-: review labs, await family mtg. 01/14/17: continue iv merrem. Thoracentesis done 01/15/17: change dressing. History Interval history: Patient seen and examined. Follow up on current diagnosis/respiratory failure. Still unresponsive, Imaging, old records, testing, labs, nursing notes reviewed. Hospitalist Physical - Physical exam Narrative exam: GEN: Ill appearing, trach, staring, in vegatative state NECK: SUPPLE, trach in place, ngt in place CVS: regular currently NORMAL S1S2 LUNGS/CHEST: NORMAL CHEST EXPANSION B, GOOD AIR ENTRY B ABD: SOFT, NTND, 3 ostomy bags in 3 different locations, GBS, NO REBOUND OR GUARDING EXT/SKIN: NO SIGNIFICANT EDEMA OR RASH MSK: no spontaneous movement NEURO: CN 2-12 GROSSLY INTACT, on a ventilator PSY: Comatose, - Constitutional Vitals: Temp Pulse Resp BP Pulse Ox 98 F 95 H 27 H 129/77 100 01/15/17 07:00 01/15/17 08:39 01/15/17 08:39 01/15/17 08:33 01/15/17 08:33 General appearance: Present: no acute distress, well-nourished, obese Results - Labs CBC & Chem 7: 01/12/17 04:30 01/14/17 05:30 Labs: Laboratory Last Values WBC 15.8 K/mm3 (4.5-11.0) H 01/12/17 04:30 RBC 3.31 M/mm3 (3.65-5.03) L 01/12/17 04:30 Hgb 8.9 gm/dl (10.1-14.3) L 01/12/17 04:30 Hct 27.9 % (30.3-42.9) L 01/12/17 04:30 MCV 85 fl (79-97) 01/12/17 04:30 MCH 27 pg (28-32) L 01/12/17 04:30 MCHC 32 % (30-34) 01/12/17 04:30 RDW 17.4 % (13.2-15.2) H 01/12/17 04:30 Plt Count 347 K/mm3 (140-440) 01/12/17 04:30 Lymph % (Auto) 18.5 % (13.4-35.0) 01/03/17 05:00 Blanco % (Auto) 10.0 % (0.0-7.3) H 01/03/17 05:00 Eos % (Auto) 0.5 % (0.0-4.3) 01/03/17 05:00 Baso % (Auto) 0.5 % (0.0-1.8) 01/03/17 05:00 Lymph # 2.1 K/mm3 (1.2-5.4) 01/03/17 05:00 Blanco # 1.1 K/mm3 (0.0-0.8) H 01/03/17 05:00 Eos # 0.1 K/mm3 (0.0-0.4) 01/03/17 05:00 Baso # 0.1 K/mm3 (0.0-0.1) 01/03/17 05:00 Add Manual Diff Complete 12/19/16 05:02 Total Counted 100 12/19/16 05:02 Seg Neutrophils % 70.5 % (40.0-70.0) H 01/03/17 05:00 Seg Neuts % (Manual) 64.0 % (40.0-70.0) 12/19/16 05:02 Band Neutrophils % 15.0 % 12/19/16 05:02 Lymphocytes % (Manual) 13.0 % (13.4-35.0) L 12/19/16 05:02 Reactive Lymphs % (Man) 0 % 12/19/16 05:02 Monocytes % (Manual) 7.0 % (0.0-7.3) 12/19/16 05:02 Eosinophils % (Manual) 0 % (0.0-4.3) 12/19/16 05:02 Basophils % (Manual) 1.0 % (0.0-1.8) 12/19/16 05:02 Metamyelocytes % 0 % 12/19/16 05:02 Myelocytes % 0 % 12/19/16 05:02 Promyelocytes % 0 % 12/19/16 05:02 Blast Cells % 0 % 12/19/16 05:02 Nucleated RBC % 1.0 % (0.0-0.9) H 12/19/16 05:02 Seg Neutrophils # 7.9 K/mm3 (1.8-7.7) H 01/03/17 05:00 Seg Neutrophils # Man 12.9 K/mm3 (1.8-7.7) H 12/19/16 05:02 Band Neutrophils # 3.0 K/mm3 12/19/16 05:02 Lymphocytes # (Manual) 2.6 K/mm3 (1.2-5.4) 12/19/16 05:02 Abs React Lymphs (Man) 0.0 K/mm3 12/19/16 05:02 Monocytes # (Manual) 1.4 K/mm3 (0.0-0.8) H 12/19/16 05:02 Eosinophils # (Manual) 0.0 K/mm3 (0.0-0.4) 12/19/16 05:02 Basophils # (Manual) 0.2 K/mm3 (0.0-0.1) H 12/19/16 05:02 Metamyelocytes # 0.0 K/mm3 12/19/16 05:02 Myelocytes # 0.0 K/mm3 12/19/16 05:02 Promyelocytes # 0.0 K/mm3 12/19/16 05:02 Blast Cells # 0.0 K/mm3 12/19/16 05:02 Pathologist Review 09/13/16 04:00 WBC Morphology Not Reportable 12/19/16 05:02 Hypersegmented Neuts Not Reportable 12/19/16 05:02 Hyposegmented Neuts Not Reportable 12/19/16 05:02 Hypogranular Neuts Not Reportable 12/19/16 05:02 Smudge Cells Not Reportable 12/19/16 05:02 Toxic Granulation Not Reportable 12/19/16 05:02 Toxic Vacuolation Not Reportable 12/19/16 05:02 Dohle Bodies Not Reportable 12/19/16 05:02 Pelger-Huet Anomaly Not Reportable 12/19/16 05:02 Jasmina Rods Not Reportable 12/19/16 05:02 Platelet Estimate Consistent w auto 12/19/16 05:02 Clumped Platelets Not Reportable 12/19/16 05:02 Plt Clumps, EDTA Not Reportable 12/19/16 05:02 Large Platelets Not Reportable 12/19/16 05:02 Giant Platelets Not Reportable 12/19/16 05:02 Platelet Satelliting Not Reportable 12/19/16 05:02 Plt Morphology Comment Not Reportable 12/19/16 05:02 RBC Morphology Not Reportable 12/19/16 05:02 Dimorphic RBCs Not Reportable 12/19/16 05:02 Polychromasia Not Reportable 12/19/16 05:02 Hypochromasia Not Reportable 12/19/16 05:02 Poikilocytosis Not Reportable 12/19/16 05:02 Anisocytosis Not Reportable 12/19/16 05:02 Microcytosis Not Reportable 12/19/16 05:02 Macrocytosis Not Reportable 12/19/16 05:02 Spherocytes Not Reportable 12/19/16 05:02 Pappenheimer Bodies Not Reportable 12/19/16 05:02 Sickle Cells Not Reportable 12/19/16 05:02 Target Cells Few 12/19/16 05:02 Tear Drop Cells Not Reportable 12/19/16 05:02 Ovalocytes Not Reportable 12/19/16 05:02 Stomatocytes Rare 12/03/16 04:00 Helmet Cells Not Reportable 12/19/16 05:02 Monet-Platter Bodies Not Reportable 12/19/16 05:02 Scio Rings Not Reportable 12/19/16 05:02 Zullinger Cells Not Reportable 12/19/16 05:02 Bite Cells Not Reportable 12/19/16 05:02 Crenated Cell Not Reportable 12/19/16 05:02 Elliptocytes Not Reportable 12/19/16 05:02 Acanthocytes (Spur) Not Reportable 12/19/16 05:02 Rouleaux Not Reportable 12/19/16 05:02 Hemoglobin C Crystals Not Reportable 12/19/16 05:02 Schistocytes Not Reportable 12/19/16 05:02 Malaria parasites Not Reportable 12/19/16 05:02 ESR > 140.0 mm/Hr (0-20) 09/08/16 11:48 Jun Bodies Not Reportable 12/19/16 05:02 Hem Pathologist Commnt No 12/19/16 05:02 PT 15.4 Sec. (12.2-14.9) H 01/13/17 15:50 INR 1.16 (0.87-1.13) H 01/13/17 15:50 APTT 33.0 Sec. (24.2-36.6) 10/09/16 03:45 Thrombin Time 16.8 Sec. (15.1-19.6) 09/03/16 00:10 Fibrinogen 750 mg/dl (211-480) H 09/08/16 11:48 Lupus Anticoagulant see below 09/12/16 09:59 LA PTT Baseline See scanned report 09/12/16 09:59 dRVVT Confirm Interp Positive (Negative) H 09/12/16 09:59 dRVVT Screen 50:50 See scanned report 09/12/16 09:59 dRVVT Mix Interpret See scanned report 09/12/16 09:59 Protein C Antigen 122 % (70-140) 09/08/16 15:35 Free Protein S 97 % normal (50-147) 09/08/16 15:35 Total Protein S 109 % (70-140) 09/08/16 15:35 Antithrombin III Ag 100 % (80-120) 09/08/16 15:35 Heparin Anti-Xa, Unfract Negative (Negative) 09/29/16 13:35 Factor V Activity 182 % (65-150) H 09/08/16 15:35 POC ABG pH 7.503 (7.35-7.45) H 12/19/16 09:36 ABG pH 7.450 pH Units (7.350-7.450) 12/05/16 Unknown POC ABG pCO2 30.1 (35-45) L 12/19/16 09:36 ABG pCO2 29.6 mm Hg 12/05/16 Unknown POC ABG pO2 85 (80-105) 12/19/16 09:36 ABG pO2 75.2 mm Hg (80.0-90.0) L 12/05/16 Unknown POC ABG HCO3 23.6 12/19/16 09:36 ABG HCO3 20.1 mmol/L (20.0-26.0) 12/05/16 Unknown POC ABG Total CO2 25 12/19/16 09:36 POC ABG O2 Sat 97 12/19/16 09:36 ABG O2 Saturation 96.8 % (95.0-99.0) 12/05/16 Unknown ABG O2 Content 9.9 (0.0-44) 12/05/16 Unknown POC ABG Base Excess 1 12/19/16 09:36 ABG Base Excess -3.4 mmol/L (-2.0-3.0) L 12/05/16 Unknown ABG Hemoglobin 7.4 gm/dl (12.0-16.0) L 12/05/16 Unknown ABG Carboxyhemoglobin 1.8 % (0.0-5.0) 12/05/16 Unknown ABG Methemoglobin 0.6 % (0.0-1.5) 12/05/16 Unknown Oxyhemoglobin 94.5 % (95.0-99.0) L 12/05/16 Unknown FiO2 28 % 12/19/16 09:36 Sodium 138 mmol/L (137-145) 01/14/17 05:30 Potassium 4.0 mmol/L (3.6-5.0) 01/14/17 05:30 Chloride 101.7 mmol/L (98-107) 01/14/17 05:30 Carbon Dioxide 27 mmol/L (22-30) 01/14/17 05:30 Anion Gap 13 mmol/L 01/14/17 05:30 BUN 58 mg/dL (7-17) H 01/14/17 05:30 Creatinine 1.2 mg/dL (0.7-1.2) 01/14/17 05:30 Estimated GFR 59 ml/min 01/14/17 05:30 BUN/Creatinine Ratio 48 % 01/14/17 05:30 Glucose 114 mg/dL (65-100) H 01/14/17 05:30 POC Glucose 126 (70-105) H 01/15/17 05:01 Osmolality 351 Mosm/kg 09/16/16 11:47 Lactic Acid 2.30 mmol/L (0.7-2.0) H* 01/09/17 08:22 Calcium 8.7 mg/dL (8.4-10.2) 01/14/17 05:30 Phosphorus 3.10 mg/dL (2.5-4.5) 01/14/17 05:30 Magnesium 1.90 mg/dL (1.7-2.3) 01/14/17 05:30 Total Bilirubin 0.50 mg/dL (0.1-1.2) 01/01/17 05:00 Direct Bilirubin 0.3 mg/dL (0-0.2) H 10/10/16 05:00 Indirect Bilirubin 0.1 mg/dL 10/10/16 05:00 AST 35 units/L (5-40) 01/01/17 05:00 ALT 51 units/L (7-56) 01/01/17 05:00 Alkaline Phosphatase 536 units/L (35-129) H 01/01/17 05:00 Ammonia 27.0 umol/L (25-60) 09/07/16 08:37 Lactate Dehydrogenase 170 units/L (91-180) 01/13/17 15:50 Total Creatine Kinase 121 units/L (30-135) 09/29/16 20:12 CK-MB (CK-2) < 1.0 ng/mL (0.0-4.0) 09/29/16 20:12 CK-MB (CK-2) Rel Index 0.8 (0-4) 09/29/16 20:12 Troponin T 0.204 ng/mL (0.00-0.029) H* 09/29/16 20:12 C-Reactive Protein 24.70 mg/dL (0.00-1.30) H 01/09/17 13:30 Total Protein 6.3 g/dL (6.3-8.2) 01/13/17 15:50 Albumin 1.5 g/dL (3.9-5) L 01/01/17 05:00 Albumin/Globulin Ratio 0.3 % 01/01/17 05:00 Prealbumin 0.110 g/L (0.200-0.400) L 12/29/16 05:15 Triglycerides 137 mg/dL (2-149) 09/29/16 20:12 Cholesterol 31 mg/dL (50-199) L 09/29/16 20:12 LDL Cholesterol Direct 4 mg/dL (50-130) L 09/29/16 20:12 HDL Cholesterol 3 mg/dL (40-59) L 09/29/16 20:12 Cholesterol/HDL Ratio 10.33 % 09/29/16 20:12 Angiotensin Convert Enz See scanned report 09/08/16 11:48 Renin 0.99 ng/mL/h (0.25-5.82) 10/07/16 10:56 Aldosterone <1 ng/dL () 10/07/16 10:56 Aldosterone/Renin Dir see below 10/07/16 10:56 Serotonin Release Assay See scanned report 09/29/16 13:35 TSH 1.010 mlU/mL (0.270-4.200) 09/07/16 08:37 HCG, Qual Negative (Negative) 09/03/16 00:10 Urine Color Yellow (Yellow) 11/05/16 13:09 Urine Turbidity Clear (Clear) 11/05/16 13:09 Urine pH 9.0 (5.0-7.0) H 11/05/16 13:09 Ur Specific Russell 1.011 (1.003-1.030) 11/05/16 13:09 Urine Protein 100 mg/dl mg/dL (Negative) 11/05/16 13:09 Urine Glucose (UA) Neg mg/dL (Negative) 11/05/16 13:09 Urine Ketones Neg mg/dL (Negative) 11/05/16 13:09 Urine Blood Neg (Negative) 11/05/16 13:09 Urine Nitrite Neg (Negative) 11/05/16 13:09 Urine Bilirubin Neg (Negative) 11/05/16 13:09 Urine Urobilinogen < 2.0 mg/dL (<2.0) 11/05/16 13:09 Ur Leukocyte Esterase Neg (Negative) 11/05/16 13:09 Urine WBC (Auto) 4.0 /HPF (0.0-6.0) 11/05/16 13:09 Urine RBC (Auto) 1.0 /HPF (0.0-6.0) 11/05/16 13:09 U Epithel Cells (Auto) 1.0 /HPF (0-13.0) 10/07/16 18:30 Urine Bacteria (Auto) 4+ /HPF (Negative) 11/05/16 13:09 Urine WBC Clumps 2+ /HPF 09/07/16 02:47 Hyaline Casts 4 /LPF 09/07/16 02:47 Urine Mucus Few /HPF 10/07/16 18:30 Urine Yeast (Budding) 3+ /HPF 10/07/16 18:30 Urine Eosinophils None seen (None Seen) 09/07/16 16:00 Urine Total Volume 950 11/12/16 10:18 Urine Creatinine 19.7 mg/dL (0.1-20.0) 11/12/16 10:18 Height (in) 65.0 inches 11/12/16 10:18 Weight (lb) 181.0 lbs 11/12/16 10:18 Creatinine Clearance 5 11/12/16 10:18 Urine Sodium 36 mEq/L 09/16/16 19:19 Urine Total Protein 16 mg/dL (5-11.8) H 09/16/16 19:19 Fluid Seg Neutrophils 85.0 % 01/13/17 12:10 Fluid Lymphocytes 8.0 % 01/13/17 12:10 Fluid Monocytes 6.0 % 01/13/17 12:10 Fluid Eosinophils 1.0 % 01/13/17 12:10 Fluid Total Protein < 3.0 (15.0-45.0) L 11/10/16 14:20 Fluid LDH 123 11/10/16 14:20 Fluid Comment Diff performed 01/13/17 12:10 Vancomycin Trough 2.3 ug/mL (5.0-20.0) L 09/21/16 13:00 Random Vancomycin 16.5 ug/mL (0-40.0) 11/28/16 09:45 Urine Opiates Screen Presumptive negative 09/03/16 15:11 Urine Methadone Screen Presumptive positive 09/03/16 15:11 Ur Barbiturates Screen Presumptive positive 09/03/16 15:11 Ur Phencyclidine Scrn Presumptive negative 09/03/16 15:11 Ur Amphetamines Screen Presumptive negative 09/03/16 15:11 U Benzodiazepines Scrn Presumptive negative 09/03/16 15:11 Urine Cocaine Screen Presumptive negative 09/03/16 15:11 U Marijuana (THC) Screen Presumptive positive 09/03/16 15:11 Drugs of Abuse Note Disclamer 09/03/16 15:11 Rheumatoid Factor 24 IU/ml (0-13) H 09/08/16 11:48 SAHIL Screen Negative (Negative) 09/07/16 09:20 Proteinase 3 (PR3) Ab <1.0 AI (<1.0) 09/07/16 09:20 Myeloperoxidase Ab <1.0 AI (<1.0) 09/07/16 09:20 Sjogren's Antibody <1.0 AI (<1.0) 09/08/16 15:35 Scl-70 Scleroderma Ab <1.0 AI (<1.0) 09/08/16 15:35 Centromere B Antibody <1.0 AI (<1.0) 09/08/16 12:02 Heparin-induced Plt Ab Negative (Negative) 09/29/16 13:35 UF Heparin High Dose 11 % Release 09/29/16 13:35 SUDHIR UFH Low Dose 0.1 6 % Release 09/29/16 13:35 SUDHIR UFH Low Dose 0.5 8 % Release 09/29/16 13:35 Cardiolipid IgG Ab <14 GPL (<=14) 09/12/16 09:59 Cardiolipid IgA Ab <11 APL (<=11) 09/12/16 09:59 Cardiolipid IgM Ab <12 MPL (<=12) 09/12/16 09:59 Complement C3 148 mg/dL (90-180) 09/07/16 09:20 Complement C4 58 mg/dL (16-47) H 09/07/16 09:20 RPR Nonreactive (Nonreactive) 09/08/16 11:48 Hepatitis A IgM Ab Non-reactive (NonReactive) 09/24/16 14:40 Hep Bs Antigen Non-reactive (Negative) 09/24/16 14:40 Hep B Core IgM Ab Non-reactive (NonReactive) 09/24/16 14:40 Hepatitis C Antibody Non-reactive (NonReactive) 09/24/16 14:40 HIV 1&2 Antibody Rapid Non react (Non React) 09/08/16 11:48 HIV P24 Antigen Non react (Non React) 09/08/16 11:48 Miscellaneous Test Flexitest 1 H 01/09/17 18:45 Blood Type A POSITIVE 01/08/17 10:37 Antibody Screen Negative 01/08/17 10:37 DELORIS Antibody Screen Negative 11/24/16 11:20 Crossmatch See Detail 01/08/17 10:37
[2017-01-15] MEDS: PROTONIX FEEDTUBE SCH (09:44)
[2017-01-15] MEDS: NORVASC PO SCH (09:45)
--- NOTE | 2017-01-15 10:30 | Progress Note ---
Subjective Principal diagnosis: Acute resp failure on MVS; S/P Acute CVA; Acute Encephalopathy; JUANITA Interval history: Patient was seen today for follow-up on multiple renal-related issues condition remains unchanged Events of 24 hours, interdisciplinary notes were also reviewed Lab results were reviewed Social history: Reviewed Medication: Reviewed Family history: Reviewed Allergies: Reviewed Physical examination General; no acute distress HEENT: Mild pallor no icterus oral mucosa moist Neck: Supple soft no jugular venous distention Chest: few bilateral crackles Cardiovascular: S1-S2 heart no S3-S4 Abdomen: Soft nontender no voluntary guarding rigidity rebound no organomegaly no masses no suprapubic fullness no CVA tenderness Extremity: Minimal edema dry skin no tenderness in the Area Derm: Dry skin Assessment and plan patient likely may have progressed to end-stage renal disease she is currently dialysis dependent for solute and volume clearance Current dialysis access has been working well she is too unstable for fistula creation She needs close monitoring of her dialysis labs off and on hypertension mixed variety including renovascular currently stable Status post cardiac arrest, respiratory failure, seizure disorder Multiple comorbidities including peritonitis, candidemia, urinary tract infection, diarrhea, CVA left-sided, abdominal wall abscess Other management per primary team and other specialities Overall prognosis very poor mortality risk is high We'll continue to follow and make recommendation from renal standpoint Objective - Vital Signs Vital signs: Vital Signs - 12hr 01/14/17 01/14/17 01/14/17 22:31 22:45 23:00 Temperature Pulse Rate 107 H 102 H 103 H Pulse Rate [ Anterior Bilateral Throughout] Pulse Rate [ Bilateral Throughout] Pulse Rate [ From Monitor] Respiratory 20 21 21 Rate Respiratory Rate [Anterior Bilateral Throughout] Respiratory Rate [Bilateral Throughout] Blood Pressure 100/57 100/57 113/69 O2 Sat by Pulse 100 100 99 Oximetry O2 Sat by Pulse Oximetry [ Assessment] 01/14/17 01/14/17 01/14/17 23:15 23:31 23:41 Temperature 99.1 F Pulse Rate 102 H 101 H Pulse Rate [ Anterior Bilateral Throughout] Pulse Rate [ Bilateral Throughout] Pulse Rate [ From Monitor] Respiratory 20 26 H Rate Respiratory Rate [Anterior Bilateral Throughout] Respiratory Rate [Bilateral Throughout] Blood Pressure 113/69 113/69 O2 Sat by Pulse 99 91 Oximetry O2 Sat by Pulse Oximetry [ Assessment] 01/14/17 01/14/17 01/15/17 23:45 23:50 00:00 Temperature Pulse Rate 102 H 89 101 H Pulse Rate [ Anterior Bilateral Throughout] Pulse Rate [ Bilateral Throughout] Pulse Rate [ From Monitor] Respiratory 25 H 22 Rate Respiratory Rate [Anterior Bilateral Throughout] Respiratory Rate [Bilateral Throughout] Blood Pressure 113/69 113/69 105/64 O2 Sat by Pulse 99 100 100 Oximetry O2 Sat by Pulse Oximetry [ Assessment] 01/15/17 01/15/17 01/15/17 00:15 00:31 00:45 Temperature Pulse Rate 105 H 102 H 103 H Pulse Rate [ Anterior Bilateral Throughout] Pulse Rate [ Bilateral Throughout] Pulse Rate [ From Monitor] Respiratory 24 25 H 26 H Rate Respiratory Rate [Anterior Bilateral Throughout] Respiratory Rate [Bilateral Throughout] Blood Pressure 105/64 105/64 105/64 O2 Sat by Pulse 92 91 93 Oximetry O2 Sat by Pulse 100 Oximetry [ Assessment] 01/15/17 01/15/17 01/15/17 01:00 01:10 01:15 Temperature Pulse Rate 105 H 99 H Pulse Rate [ 108 H Anterior Bilateral Throughout] Pulse Rate [ Bilateral Throughout] Pulse Rate [ From Monitor] Respiratory 26 H 19 Rate Respiratory 24 Rate [Anterior Bilateral Throughout] Respiratory Rate [Bilateral Throughout] Blood Pressure 108/65 108/65 O2 Sat by Pulse 93 94 Oximetry O2 Sat by Pulse Oximetry [ Assessment] 01/15/17 01/15/17 01/15/17 01:20 01:31 01:39 Temperature Pulse Rate 108 H 100 H Pulse Rate [ 107 H Anterior Bilateral Throughout] Pulse Rate [ Bilateral Throughout] Pulse Rate [ From Monitor] Respiratory 27 H Rate Respiratory 22 Rate [Anterior Bilateral Throughout] Respiratory Rate [Bilateral Throughout] Blood Pressure 108/65 100/57 O2 Sat by Pulse 94 Oximetry O2 Sat by Pulse Oximetry [ Assessment] 01/15/17 01/15/17 01/15/17 01:40 01:45 02:00 Temperature Pulse Rate 100 H 109 H 109 H Pulse Rate [ Anterior Bilateral Throughout] Pulse Rate [ Bilateral Throughout] Pulse Rate [ From Monitor] Respiratory 25 H 26 H Rate Respiratory Rate [Anterior Bilateral Throughout] Respiratory Rate [Bilateral Throughout] Blood Pressure 105/64 108/65 126/77 O2 Sat by Pulse 95 96 Oximetry O2 Sat by Pulse Oximetry [ Assessment] 01/15/17 01/15/17 01/15/17 02:15 02:31 02:45 Temperature Pulse Rate 108 H 112 H 102 H Pulse Rate [ Anterior Bilateral Throughout] Pulse Rate [ Bilateral Throughout] Pulse Rate [ From Monitor] Respiratory 15 31 H 20 Rate Respiratory Rate [Anterior Bilateral Throughout] Respiratory Rate [Bilateral Throughout] Blood Pressure 126/77 126/77 126/77 O2 Sat by Pulse 100 96 100 Oximetry O2 Sat by Pulse Oximetry [ Assessment] 01/15/17 01/15/17 01/15/17 03:00 03:15 03:25 Temperature 98.1 F Pulse Rate 108 H 107 H Pulse Rate [ Anterior Bilateral Throughout] Pulse Rate [ Bilateral Throughout] Pulse Rate [ From Monitor] Respiratory 25 H 22 Rate Respiratory Rate [Anterior Bilateral Throughout] Respiratory Rate [Bilateral Throughout] Blood Pressure 121/74 121/74 O2 Sat by Pulse 99 100 Oximetry O2 Sat by Pulse Oximetry [ Assessment] 01/15/17 01/15/17 01/15/17 03:31 03:33 03:45 Temperature Pulse Rate 102 H 107 H 104 H Pulse Rate [ Anterior Bilateral Throughout] Pulse Rate [ Bilateral Throughout] Pulse Rate [ From Monitor] Respiratory 15 27 H Rate Respiratory Rate [Anterior Bilateral Throughout] Respiratory Rate [Bilateral Throughout] Blood Pressure 121/74 121/74 121/74 O2 Sat by Pulse 100 93 92 Oximetry O2 Sat by Pulse Oximetry [ Assessment] 01/15/17 01/15/17 01/15/17 04:00 04:15 04:31 Temperature Pulse Rate 105 H 105 H 104 H Pulse Rate [ Anterior Bilateral Throughout] Pulse Rate [ Bilateral Throughout] Pulse Rate [ From Monitor] Respiratory 25 H 19 19 Rate Respiratory Rate [Anterior Bilateral Throughout] Respiratory Rate [Bilateral Throughout] Blood Pressure 121/66 121/66 121/66 O2 Sat by Pulse 91 93 95 Oximetry O2 Sat by Pulse Oximetry [ Assessment] 01/15/17 01/15/17 01/15/17 04:45 05:00 05:15 Temperature Pulse Rate 106 H 110 H 108 H Pulse Rate [ Anterior Bilateral Throughout] Pulse Rate [ Bilateral Throughout] Pulse Rate [ From Monitor] Respiratory 26 H 26 H 26 H Rate Respiratory Rate [Anterior Bilateral Throughout] Respiratory Rate [Bilateral Throughout] Blood Pressure 121/66 128/75 128/75 O2 Sat by Pulse 100 93 94 Oximetry O2 Sat by Pulse Oximetry [ Assessment] 01/15/17 01/15/17 01/15/17 05:31 05:45 05:57 Temperature Pulse Rate 111 H 108 H 108 H Pulse Rate [ Anterior Bilateral Throughout] Pulse Rate [ Bilateral Throughout] Pulse Rate [ From Monitor] Respiratory 29 H 23 Rate Respiratory Rate [Anterior Bilateral Throughout] Respiratory Rate [Bilateral Throughout] Blood Pressure 128/75 128/75 128/75 O2 Sat by Pulse 95 93 Oximetry O2 Sat by Pulse Oximetry [ Assessment] 01/15/17 01/15/17 01/15/17 05:58 06:00 07:00 Temperature 98 F Pulse Rate 108 H 108 H 119 H Pulse Rate [ Anterior Bilateral Throughout] Pulse Rate [ Bilateral Throughout] Pulse Rate [ From Monitor] Respiratory 24 35 H Rate Respiratory Rate [Anterior Bilateral Throughout] Respiratory Rate [Bilateral Throughout] Blood Pressure 128/75 115/77 127/75 O2 Sat by Pulse 94 100 Oximetry O2 Sat by Pulse Oximetry [ Assessment] 01/15/17 01/15/17 01/15/17 07:27 08:00 08:27 Temperature Pulse Rate 117 H 93 H Pulse Rate [ Anterior Bilateral Throughout] Pulse Rate [ Bilateral Throughout] Pulse Rate [ 117 H From Monitor] Respiratory 29 H 29 H Rate Respiratory Rate [Anterior Bilateral Throughout] Respiratory Rate [Bilateral Throughout] Blood Pressure 127/75 129/77 O2 Sat by Pulse 100 100 Oximetry O2 Sat by Pulse Oximetry [ Assessment] 01/15/17 01/15/17 01/15/17 08:31 08:33 08:39 Temperature Pulse Rate 94 H Pulse Rate [ Anterior Bilateral Throughout] Pulse Rate [ 93 H 95 H Bilateral Throughout] Pulse Rate [ From Monitor] Respiratory Rate Respiratory Rate [Anterior Bilateral Throughout] Respiratory 31 H 27 H Rate [Bilateral Throughout] Blood Pressure 129/77 O2 Sat by Pulse 100 Oximetry O2 Sat by Pulse Oximetry [ Assessment] 01/15/17 09:45 Temperature Pulse Rate 97 H Pulse Rate [ Anterior Bilateral Throughout] Pulse Rate [ Bilateral Throughout] Pulse Rate [ From Monitor] Respiratory Rate Respiratory Rate [Anterior Bilateral Throughout] Respiratory Rate [Bilateral Throughout] Blood Pressure 132/82 O2 Sat by Pulse Oximetry O2 Sat by Pulse Oximetry [ Assessment] - Lab 01/15/17 12:45 01/15/17 12:45 Most recent lab results ABG pH 7.450 pH Units (7.350-7.450) 12/05/16 Unknown ABG pCO2 29.6 mm Hg 12/05/16 Unknown ABG pO2 75.2 mm Hg (80.0-90.0) L 12/05/16 Unknown ABG HCO3 20.1 mmol/L (20.0-26.0) 12/05/16 Unknown ABG O2 Saturation 96.8 % (95.0-99.0) 12/05/16 Unknown Calcium 8.7 mg/dL (8.4-10.2) 01/14/17 05:30 Phosphorus 3.10 mg/dL (2.5-4.5) 01/14/17 05:30 Magnesium 1.90 mg/dL (1.7-2.3) 01/14/17 05:30 Urine Creatinine 19.7 mg/dL (0.1-20.0) 11/12/16 10:18 Urine Sodium 36 mEq/L 09/16/16 19:19 Urine Total Protein 16 mg/dL (5-11.8) H 09/16/16 19:19
--- NOTE | 2017-01-15 11:37 | Progress Note ---
Assessment and Plan Patient is 46-year-old woman with a history of hypertension, diabetes mellitus, asthma, hyperlipidemia, chronic kidney disease and anxiety, who was brought in by family because she couldn't get her words out, her face was also twisted, she was admitted for acute CVA and accelerated hypertension, she had a hx of poor adherence with her medications, and uncontrolled htn. Patient's SBP on admission was noted be greater than 260. TPA was started but this it was discontinued after 5 minutes because her blood pressure became uncontrolled. The TPA was not initiated again because the patient was outside the TPA window. Patient has had a prolonged hospital stay complicated with recurrent severe sepsis. Patient with most recent event also status post cardiac arrest on , with CPR and ROSC. Acute on chronic Hypoxemic Respiratory Failure ( not tolerating spontaneous breathing trials) Sepsis -recurrent s/p tracheostomy Hypertension Atrial Fibrillation with RVR Acute encephalopathy s/p CVA Oropharyngeal dysphagia Enterococcal bacteremia Sacral Decubitus Ulcer- unstageable s/p debridement Anemia Obesity JUANITA now on hemodialysis Enteric Fistula - VAP bundle addressed -CXR prn, s/p thoracentesis - continue NGT to LIS - continue wound care per WCT - Vasopressor if MAP falls < 65mmHg - keep on with daily PSV trials and / or T-piece as tolerated - continue TPN administration (continue TPN; NPO except for meds) - continue airway clearance and secretion management - continue to wean FiO2 for sats > 94% - continue antihypertensives and monitor hemodynamics closely - continue HD/UF per nephrology - continue to follow electrolytes and correct as necessary - continue GI & VTE prophylaxis -per Cardiology--failed cardioversion, not a candidate fro full anticoagulation. No further recommendations for management of atrial fibrillation. Rate control as tolerated by hemodynamics For further interventions per surgical service, as it pertains to the replacement of the PEG tube. .....she remains critically ill on life sustaining interventions including MVS and at risk for further deterioration including ...halfway prognosis remains poor - Patient Problems (1) Acute respiratory failure with hypoxia Current Visit: Yes Status: Acute (2) Acute blood loss anemia Current Visit: Yes Status: Resolved (3) Acute CVA (cerebrovascular accident) Current Visit: Yes Status: Acute (4) Chronic renal insufficiency Current Visit: Yes Status: Acute (5) Uncontrolled hypertension Current Visit: Yes Status: Acute (6) Leukocytosis (leucocytosis) Current Visit: Yes Status: Acute Qualifiers: Leukocytosis type: leukemoid reaction Qualified Code(s): D72.823 - Leukemoid reaction (7) Dislodged gastrostomy tube Current Visit: Yes Status: Acute (8) Fungemia Current Visit: Yes Status: Resolved (9) Cardiopulmonary arrest with successful resuscitation Current Visit: Yes Status: Acute Subjective Date of service: 01/15/17 Principal diagnosis: Acute resp failure on MVS; S/P Acute CVA; Acute Encephalopathy; JUANITA Interval history: Patient is seen today for: Acute resp failure on MVS; S/P Acute CVA; Acute Encephalopathy; JUANITA Seen and examined at bedside; 24hour events reviewed; nursing and respiratory care staff consulted; no adverse overnight events reported to me; she remains critically ill , RT was able to drop PS to 16 this morning; Thoracentesis yielded <100 ml of pleural fluid yesterday. Per RN no new events overnight Vitals, labs, medications, chart reviewed. Objective - Exam Narrative Exam: Constitutional: appears uncomfortable, other (not tracking) Eyes: non-icteric, other (tracheostomy tube in midline of neck) to ventilator ENT: oropharynx moist, oropharyngeal exudate pre Neck: supple, no JVD Effort: mildly labored Ascultation: Bilateral: diminished breath sounds (bases), rhonchi (and referred upper airway sounds) Percussion: Bilateral: dull (bases) Cardiovascular: regular rate and rhythm, other (no rubs / murmurs) Gastrointestinal: hypoactive bowel sounds, soft, non-tender, non-distended, other (RLQ & LUQ stomas with colostomy bags) Integumentary: decubitus ulcer (sacral; stage 4 s/p surgical debridement), other (no rash; no cellulitis; poor turgor) Extremities: no cyanosis, pulses normal, no ischemia or petechiae, edema (1+ bilaterally) Neurologic: pupils equal and round, unable to assess, other (encephalopathic) Psychiatric: other (unable to assess) Vital Signs - 12hr 01/14/17 01/14/17 01/14/17 23:41 23:45 23:50 Temperature 99.1 F Pulse Rate 102 H 89 Pulse Rate [ Anterior Bilateral Throughout] Pulse Rate [ Bilateral Throughout] Pulse Rate [ From Monitor] Respiratory 25 H Rate Respiratory Rate [Anterior Bilateral Throughout] Respiratory Rate [Bilateral Throughout] Blood Pressure 113/69 113/69 O2 Sat by Pulse 99 100 Oximetry O2 Sat by Pulse Oximetry [ Assessment] 01/15/17 01/15/17 01/15/17 00:00 00:15 00:31 Temperature Pulse Rate 101 H 105 H 102 H Pulse Rate [ Anterior Bilateral Throughout] Pulse Rate [ Bilateral Throughout] Pulse Rate [ From Monitor] Respiratory 22 24 25 H Rate Respiratory Rate [Anterior Bilateral Throughout] Respiratory Rate [Bilateral Throughout] Blood Pressure 105/64 105/64 105/64 O2 Sat by Pulse 100 92 91 Oximetry O2 Sat by Pulse 100 Oximetry [ Assessment] 01/15/17 01/15/17 01/15/17 00:45 01:00 01:10 Temperature Pulse Rate 103 H 105 H Pulse Rate [ 108 H Anterior Bilateral Throughout] Pulse Rate [ Bilateral Throughout] Pulse Rate [ From Monitor] Respiratory 26 H 26 H Rate Respiratory 24 Rate [Anterior Bilateral Throughout] Respiratory Rate [Bilateral Throughout] Blood Pressure 105/64 108/65 O2 Sat by Pulse 93 93 Oximetry O2 Sat by Pulse Oximetry [ Assessment] 01/15/17 01/15/17 01/15/17 01:15 01:20 01:31 Temperature Pulse Rate 99 H 108 H Pulse Rate [ 107 H Anterior Bilateral Throughout] Pulse Rate [ Bilateral Throughout] Pulse Rate [ From Monitor] Respiratory 19 27 H Rate Respiratory 22 Rate [Anterior Bilateral Throughout] Respiratory Rate [Bilateral Throughout] Blood Pressure 108/65 108/65 O2 Sat by Pulse 94 94 Oximetry O2 Sat by Pulse Oximetry [ Assessment] 01/15/17 01/15/17 01/15/17 01:39 01:40 01:45 Temperature Pulse Rate 100 H 100 H 109 H Pulse Rate [ Anterior Bilateral Throughout] Pulse Rate [ Bilateral Throughout] Pulse Rate [ From Monitor] Respiratory 25 H Rate Respiratory Rate [Anterior Bilateral Throughout] Respiratory Rate [Bilateral Throughout] Blood Pressure 100/57 105/64 108/65 O2 Sat by Pulse 95 Oximetry O2 Sat by Pulse Oximetry [ Assessment] 01/15/17 01/15/17 01/15/17 02:00 02:15 02:31 Temperature Pulse Rate 109 H 108 H 112 H Pulse Rate [ Anterior Bilateral Throughout] Pulse Rate [ Bilateral Throughout] Pulse Rate [ From Monitor] Respiratory 26 H 15 31 H Rate Respiratory Rate [Anterior Bilateral Throughout] Respiratory Rate [Bilateral Throughout] Blood Pressure 126/77 126/77 126/77 O2 Sat by Pulse 96 100 96 Oximetry O2 Sat by Pulse Oximetry [ Assessment] 01/15/17 01/15/17 01/15/17 02:45 03:00 03:15 Temperature Pulse Rate 102 H 108 H 107 H Pulse Rate [ Anterior Bilateral Throughout] Pulse Rate [ Bilateral Throughout] Pulse Rate [ From Monitor] Respiratory 20 25 H 22 Rate Respiratory Rate [Anterior Bilateral Throughout] Respiratory Rate [Bilateral Throughout] Blood Pressure 126/77 121/74 121/74 O2 Sat by Pulse 100 99 100 Oximetry O2 Sat by Pulse Oximetry [ Assessment] 01/15/17 01/15/17 01/15/17 03:25 03:31 03:33 Temperature 98.1 F Pulse Rate 102 H 107 H Pulse Rate [ Anterior Bilateral Throughout] Pulse Rate [ Bilateral Throughout] Pulse Rate [ From Monitor] Respiratory 15 Rate Respiratory Rate [Anterior Bilateral Throughout] Respiratory Rate [Bilateral Throughout] Blood Pressure 121/74 121/74 O2 Sat by Pulse 100 93 Oximetry O2 Sat by Pulse Oximetry [ Assessment] 01/15/17 01/15/17 01/15/17 03:45 04:00 04:15 Temperature Pulse Rate 104 H 105 H 105 H Pulse Rate [ Anterior Bilateral Throughout] Pulse Rate [ Bilateral Throughout] Pulse Rate [ From Monitor] Respiratory 27 H 25 H 19 Rate Respiratory Rate [Anterior Bilateral Throughout] Respiratory Rate [Bilateral Throughout] Blood Pressure 121/74 121/66 121/66 O2 Sat by Pulse 92 91 93 Oximetry O2 Sat by Pulse Oximetry [ Assessment] 01/15/17 01/15/17 01/15/17 04:31 04:45 05:00 Temperature Pulse Rate 104 H 106 H 110 H Pulse Rate [ Anterior Bilateral Throughout] Pulse Rate [ Bilateral Throughout] Pulse Rate [ From Monitor] Respiratory 19 26 H 26 H Rate Respiratory Rate [Anterior Bilateral Throughout] Respiratory Rate [Bilateral Throughout] Blood Pressure 121/66 121/66 128/75 O2 Sat by Pulse 95 100 93 Oximetry O2 Sat by Pulse Oximetry [ Assessment] 01/15/17 01/15/17 01/15/17 05:15 05:31 05:45 Temperature Pulse Rate 108 H 111 H 108 H Pulse Rate [ Anterior Bilateral Throughout] Pulse Rate [ Bilateral Throughout] Pulse Rate [ From Monitor] Respiratory 26 H 29 H 23 Rate Respiratory Rate [Anterior Bilateral Throughout] Respiratory Rate [Bilateral Throughout] Blood Pressure 128/75 128/75 128/75 O2 Sat by Pulse 94 95 93 Oximetry O2 Sat by Pulse Oximetry [ Assessment] 01/15/17 01/15/17 01/15/17 05:57 05:58 06:00 Temperature Pulse Rate 108 H 108 H 108 H Pulse Rate [ Anterior Bilateral Throughout] Pulse Rate [ Bilateral Throughout] Pulse Rate [ From Monitor] Respiratory 24 Rate Respiratory Rate [Anterior Bilateral Throughout] Respiratory Rate [Bilateral Throughout] Blood Pressure 128/75 128/75 115/77 O2 Sat by Pulse 94 Oximetry O2 Sat by Pulse Oximetry [ Assessment] 01/15/17 01/15/17 01/15/17 07:00 07:27 08:00 Temperature 98 F Pulse Rate 119 H 117 H 99 H Pulse Rate [ Anterior Bilateral Throughout] Pulse Rate [ Bilateral Throughout] Pulse Rate [ 117 H From Monitor] Respiratory 35 H 33 H Rate Respiratory Rate [Anterior Bilateral Throughout] Respiratory Rate [Bilateral Throughout] Blood Pressure 127/75 127/75 129/77 O2 Sat by Pulse 100 93 Oximetry O2 Sat by Pulse Oximetry [ Assessment] 01/15/17 01/15/17 01/15/17 08:27 08:31 08:33 Temperature Pulse Rate 93 H 94 H Pulse Rate [ Anterior Bilateral Throughout] Pulse Rate [ 93 H Bilateral Throughout] Pulse Rate [ From Monitor] Respiratory 29 H Rate Respiratory Rate [Anterior Bilateral Throughout] Respiratory 31 H Rate [Bilateral Throughout] Blood Pressure 129/77 129/77 O2 Sat by Pulse 100 100 Oximetry O2 Sat by Pulse Oximetry [ Assessment] 01/15/17 01/15/17 01/15/17 08:39 09:00 09:45 Temperature Pulse Rate 93 H 97 H Pulse Rate [ Anterior Bilateral Throughout] Pulse Rate [ 95 H Bilateral Throughout] Pulse Rate [ From Monitor] Respiratory 31 H Rate Respiratory Rate [Anterior Bilateral Throughout] Respiratory 27 H Rate [Bilateral Throughout] Blood Pressure 132/82 132/82 O2 Sat by Pulse 100 Oximetry O2 Sat by Pulse Oximetry [ Assessment] 01/15/17 01/15/17 10:00 11:00 Temperature Pulse Rate 97 H 96 H Pulse Rate [ Anterior Bilateral Throughout] Pulse Rate [ Bilateral Throughout] Pulse Rate [ From Monitor] Respiratory 28 H 30 H Rate Respiratory Rate [Anterior Bilateral Throughout] Respiratory Rate [Bilateral Throughout] Blood Pressure 132/79 119/75 O2 Sat by Pulse 100 100 Oximetry O2 Sat by Pulse Oximetry [ Assessment] Constitutional: appears uncomfortable, other (not tracking) Eyes: non-icteric, other (tracheostomy tube in midline of neck) ENT: oropharynx moist, oropharyngeal exudate pre Neck: supple, no lymphadenopathy, no JVD, other (no thyromegaly) Effort: mildly labored Ascultation: Bilateral: clear, diminished breath sounds (bases), rales, rhonchi (and referred upper airway sounds) Percussion: Bilateral: not dull, dull (bases) Cardiovascular: regular rate and rhythm, other (no rubs / murmurs) Gastrointestinal: hypoactive bowel sounds, soft, non-tender, non-distended, other (RLQ & LUQ stomas with colostomy bags) Integumentary: decubitus ulcer (sacral; stage 4 s/p surgical debridement), other (no rash; no cellulitis; poor turgor) Extremities: no cyanosis, pulses normal, no ischemia or petechiae, edema (1+ bilaterally) Neurologic: pupils equal and round, unable to assess, other (encephalopathic) Psychiatric: other (unable to assess) CBC and BMP: 01/12/17 04:30 01/14/17 05:30 ABG, PT/INR, D-dimer: ABG POC ABG pH 7.503 (7.35-7.45) H 12/19/16 09:36 ABG pH 7.450 pH Units (7.350-7.450) 12/05/16 Unknown POC ABG pCO2 30.1 (35-45) L 12/19/16 09:36 ABG pCO2 29.6 mm Hg 12/05/16 Unknown POC ABG pO2 85 (80-105) 12/19/16 09:36 ABG pO2 75.2 mm Hg (80.0-90.0) L 12/05/16 Unknown POC ABG HCO3 23.6 12/19/16 09:36 POC ABG Total CO2 25 12/19/16 09:36 POC ABG O2 Sat 97 12/19/16 09:36 ABG O2 Saturation 96.8 % (95.0-99.0) 12/05/16 Unknown PT/INR, D-dimer PT 15.4 Sec. (12.2-14.9) H 01/13/17 15:50 INR 1.16 (0.87-1.13) H 01/13/17 15:50 Abnormal lab findings: Abnormal Labs 09/03/16 09/03/16 09/03/16 00:03 00:10 00:10 WBC 13.9 H RBC 5.95 H Hgb Hct 44.0 H MCV 74 L MCH 22 L MCHC RDW 17.5 H Plt Count Lymph % (Auto) [place] % (Auto) Lymph # [place] # Baso # Seg Neutrophils % Seg Neuts % (Manual) Lymphocytes % (Manual) 54.0 H Monocytes % (Manual) Eosinophils % (Manual) Basophils % (Manual) Nucleated RBC % Seg Neutrophils # Seg Neutrophils # Man Lymphocytes # (Manual) 7.5 H Monocytes # (Manual) Eosinophils # (Manual) Basophils # (Manual) PT INR Fibrinogen dRVVT Confirm Interp Factor V Activity POC ABG pH POC ABG pCO2 POC ABG pO2 ABG pO2 ABG HCO3 ABG Base Excess ABG Hemoglobin Oxyhemoglobin Sodium Potassium 2.8 L* Chloride Carbon Dioxide 21 L BUN Creatinine 1.7 H Glucose 159 H POC Glucose 177 H Lactic Acid Calcium Phosphorus Magnesium Direct Bilirubin AST ALT Alkaline Phosphatase Lactate Dehydrogenase Troponin T C-Reactive Protein Total Protein Albumin Prealbumin Triglycerides Cholesterol LDL Cholesterol Direct HDL Cholesterol Urine pH Urine WBC (Auto) Urine Creatinine Urine Total Protein Fluid Total Protein Vancomycin Trough Rheumatoid Factor Complement C4 Miscellaneous Test Crossmatch 09/03/16 09/03/16 09/03/16 12:12 15:07 16:20 WBC RBC Hgb Hct MCV MCH MCHC RDW Plt Count Lymph % (Auto) [place] % (Auto) Lymph # [place] # Baso # Seg Neutrophils % Seg Neuts % (Manual) Lymphocytes % (Manual) Monocytes % (Manual) Eosinophils % (Manual) Basophils % (Manual) Nucleated RBC % Seg Neutrophils # Seg Neutrophils # Man Lymphocytes # (Manual) Monocytes # (Manual) Eosinophils # (Manual) Basophils # (Manual) PT INR Fibrinogen dRVVT Confirm Interp Factor V Activity POC ABG pH 7.452 H POC ABG pCO2 POC ABG pO2 ABG pO2 ABG HCO3 ABG Base Excess ABG Hemoglobin Oxyhemoglobin Sodium Potassium Chloride Carbon Dioxide BUN Creatinine Glucose POC Glucose 178 H Lactic Acid Calcium Phosphorus 2.20 L Magnesium 1.60 L Direct Bilirubin AST ALT Alkaline Phosphatase Lactate Dehydrogenase Troponin T C-Reactive Protein Total Protein Albumin Prealbumin Triglycerides Cholesterol LDL Cholesterol Direct HDL Cholesterol Urine pH Urine WBC (Auto) Urine Creatinine Urine Total Protein Fluid Total Protein Vancomycin Trough Rheumatoid Factor Complement C4 Miscellaneous Test Crossmatch 09/03/16 09/03/16 09/03/16 17:57 17:58 23:50 WBC RBC Hgb Hct MCV MCH MCHC RDW Plt Count Lymph % (Auto) [place] % (Auto) Lymph # [place] # Baso # Seg Neutrophils % Seg Neuts % (Manual) Lymphocytes % (Manual) Monocytes % (Manual) Eosinophils % (Manual) Basophils % (Manual) Nucleated RBC % Seg Neutrophils # Seg Neutrophils # Man Lymphocytes # (Manual) Monocytes # (Manual) Eosinophils # (Manual) Basophils # (Manual) PT INR Fibrinogen dRVVT Confirm Interp Factor V Activity POC ABG pH POC ABG pCO2 POC ABG pO2 ABG pO2 ABG HCO3 ABG Base Excess ABG Hemoglobin Oxyhemoglobin Sodium Potassium Chloride Carbon Dioxide BUN Creatinine Glucose POC Glucose 162 H 145 H Lactic Acid Calcium Phosphorus 2.30 L Magnesium Direct Bilirubin AST ALT Alkaline Phosphatase Lactate Dehydrogenase Troponin T C-Reactive Protein Total Protein Albumin Prealbumin Triglycerides Cholesterol LDL Cholesterol Direct HDL Cholesterol Urine pH Urine WBC (Auto) Urine Creatinine Urine Total Protein Fluid Total Protein Vancomycin Trough Rheumatoid Factor Complement C4 Miscellaneous Test Crossmatch 09/04/16 09/04/16 09/04/16 03:31 03:31 05:42 WBC RBC Hgb 9.7 L D Hct MCV 72 L MCH 23 L MCHC RDW 17.5 H Plt Count Lymph % (Auto) 11.1 L [place] % (Auto) Lymph # [place] # Baso # Seg Neutrophils % 84.3 H Seg Neuts % (Manual) Lymphocytes % (Manual) Monocytes % (Manual) Eosinophils % (Manual) Basophils % (Manual) Nucleated RBC % Seg Neutrophils # 8.9 H Seg Neutrophils # Man Lymphocytes # (Manual) Monocytes # (Manual) Eosinophils # (Manual) Basophils # (Manual) PT INR Fibrinogen dRVVT Confirm Interp Factor V Activity POC ABG pH POC ABG pCO2 POC ABG pO2 ABG pO2 ABG HCO3 ABG Base Excess ABG Hemoglobin Oxyhemoglobin Sodium 135 L Potassium 2.9 L* Chloride 97.2 L Carbon Dioxide 19 L BUN Creatinine 1.7 H Glucose 170 H POC Glucose 152 H Lactic Acid Calcium Phosphorus Magnesium Direct Bilirubin AST ALT Alkaline Phosphatase Lactate Dehydrogenase Troponin T C-Reactive Protein Total Protein Albumin Prealbumin Triglycerides 160 H Cholesterol LDL Cholesterol Direct HDL Cholesterol 31 L Urine pH Urine WBC (Auto) Urine Creatinine Urine Total Protein Fluid Total Protein Vancomycin Trough Rheumatoid Factor Complement C4 Miscellaneous Test Crossmatch 09/04/16 09/04/16 09/04/16 11:34 17:46 23:29 WBC RBC Hgb Hct MCV MCH MCHC RDW Plt Count Lymph % (Auto) [place] % (Auto) Lymph # [place] # Baso # Seg Neutrophils % Seg Neuts % (Manual) Lymphocytes % (Manual) Monocytes % (Manual) Eosinophils % (Manual) Basophils % (Manual) Nucleated RBC % Seg Neutrophils # Seg Neutrophils # Man Lymphocytes # (Manual) Monocytes # (Manual) Eosinophils # (Manual) Basophils # (Manual) PT INR Fibrinogen dRVVT Confirm Interp Factor V Activity POC ABG pH POC ABG pCO2 POC ABG pO2 ABG pO2 ABG HCO3 ABG Base Excess ABG Hemoglobin Oxyhemoglobin Sodium Potassium Chloride Carbon Dioxide BUN Creatinine Glucose POC Glucose 165 H 210 H 139 H Lactic Acid Calcium Phosphorus Magnesium Direct Bilirubin AST ALT Alkaline Phosphatase Lactate Dehydrogenase Troponin T C-Reactive Protein Total Protein Albumin Prealbumin Triglycerides Cholesterol LDL Cholesterol Direct HDL Cholesterol Urine pH Urine WBC (Auto) Urine Creatinine Urine Total Protein Fluid Total Protein Vancomycin Trough Rheumatoid Factor Complement C4 Miscellaneous Test Crossmatch 09/05/16 09/05/16 09/05/16 04:05 04:05 05:38 WBC RBC Hgb Hct MCV 76 L D MCH 23 L MCHC RDW 17.8 H Plt Count Lymph % (Auto) [place] % (Auto) Lymph # [place] # Baso # Seg Neutrophils % Seg Neuts % (Manual) Lymphocytes % (Manual) Monocytes % (Manual) Eosinophils % (Manual) Basophils % (Manual) Nucleated RBC % Seg Neutrophils # Seg Neutrophils # Man Lymphocytes # (Manual) Monocytes # (Manual) Eosinophils # (Manual) Basophils # (Manual) PT INR Fibrinogen dRVVT Confirm Interp Factor V Activity POC ABG pH POC ABG pCO2 POC ABG pO2 ABG pO2 ABG HCO3 ABG Base Excess ABG Hemoglobin Oxyhemoglobin Sodium 134 L Potassium Chloride Carbon Dioxide 18 L BUN Creatinine 1.8 H Glucose 192 H POC Glucose 175 H Lactic Acid Calcium Phosphorus Magnesium Direct Bilirubin AST ALT Alkaline Phosphatase Lactate Dehydrogenase Troponin T C-Reactive Protein Total Protein Albumin Prealbumin Triglycerides Cholesterol LDL Cholesterol Direct HDL Cholesterol Urine pH Urine WBC (Auto) Urine Creatinine Urine Total Protein Fluid Total Protein Vancomycin Trough Rheumatoid Factor Complement C4 Miscellaneous Test Crossmatch 09/05/16 09/05/16 09/05/16 11:38 17:48 23:22 WBC RBC Hgb Hct MCV MCH MCHC RDW Plt Count Lymph % (Auto) [place] % (Auto) Lymph # [place] # Baso # Seg Neutrophils % Seg Neuts % (Manual) Lymphocytes % (Manual) Monocytes % (Manual) Eosinophils % (Manual) Basophils % (Manual) Nucleated RBC % Seg Neutrophils # Seg Neutrophils # Man Lymphocytes # (Manual) Monocytes # (Manual) Eosinophils # (Manual) Basophils # (Manual) PT INR Fibrinogen dRVVT Confirm Interp Factor V Activity POC ABG pH POC ABG pCO2 POC ABG pO2 ABG pO2 ABG HCO3 ABG Base Excess ABG Hemoglobin Oxyhemoglobin Sodium Potassium Chloride Carbon Dioxide BUN Creatinine Glucose POC Glucose 164 H 186 H 195 H Lactic Acid Calcium Phosphorus Magnesium Direct Bilirubin AST ALT Alkaline Phosphatase Lactate Dehydrogenase Troponin T C-Reactive Protein Total Protein Albumin Prealbumin Triglycerides Cholesterol LDL Cholesterol Direct HDL Cholesterol Urine pH Urine WBC (Auto) Urine Creatinine Urine Total Protein Fluid Total Protein Vancomycin Trough Rheumatoid Factor Complement C4 Miscellaneous Test Crossmatch 09/06/16 09/06/16 09/06/16 04:12 05:59 07:32 WBC RBC Hgb Hct MCV MCH MCHC RDW Plt Count Lymph % (Auto) [place] % (Auto) Lymph # [place] # Baso # Seg Neutrophils % Seg Neuts % (Manual) Lymphocytes % (Manual) Monocytes % (Manual) Eosinophils % (Manual) Basophils % (Manual) Nucleated RBC % Seg Neutrophils # Seg Neutrophils # Man Lymphocytes # (Manual) Monocytes # (Manual) Eosinophils # (Manual) Basophils # (Manual) PT INR Fibrinogen dRVVT Confirm Interp Factor V Activity POC ABG pH 7.514 H POC ABG pCO2 29.1 L POC ABG pO2 72 L ABG pO2 ABG HCO3 ABG Base Excess ABG Hemoglobin Oxyhemoglobin Sodium 133 L Potassium 3.4 L Chloride 94.9 L Carbon Dioxide 19 L BUN 30 H Creatinine 2.1 H Glucose 139 H POC Glucose 146 H Lactic Acid Calcium Phosphorus Magnesium Direct Bilirubin AST ALT Alkaline Phosphatase Lactate Dehydrogenase Troponin T C-Reactive Protein Total Protein Albumin Prealbumin Triglycerides Cholesterol LDL Cholesterol Direct HDL Cholesterol Urine pH Urine WBC (Auto) Urine Creatinine Urine Total Protein Fluid Total Protein Vancomycin Trough Rheumatoid Factor Complement C4 Miscellaneous Test Crossmatch 09/06/16 09/06/16 09/06/16 11:57 17:58 19:02 WBC RBC Hgb Hct MCV MCH MCHC RDW Plt Count Lymph % (Auto) [place] % (Auto) Lymph # [place] # Baso # Seg Neutrophils % Seg Neuts % (Manual) Lymphocytes % (Manual) Monocytes % (Manual) Eosinophils % (Manual) Basophils % (Manual) Nucleated RBC % Seg Neutrophils # Seg Neutrophils # Man Lymphocytes # (Manual) Monocytes # (Manual) Eosinophils # (Manual) Basophils # (Manual) PT INR Fibrinogen dRVVT Confirm Interp Factor V Activity POC ABG pH 7.465 H POC ABG pCO2 32.0 L POC ABG pO2 ABG pO2 ABG HCO3 ABG Base Excess ABG Hemoglobin Oxyhemoglobin Sodium Potassium Chloride Carbon Dioxide BUN Creatinine Glucose POC Glucose 165 H 160 H Lactic Acid Calcium Phosphorus Magnesium Direct Bilirubin AST ALT Alkaline Phosphatase Lactate Dehydrogenase Troponin T C-Reactive Protein Total Protein Albumin Prealbumin Triglycerides Cholesterol LDL Cholesterol Direct HDL Cholesterol Urine pH Urine WBC (Auto) Urine Creatinine Urine Total Protein Fluid Total Protein Vancomycin Trough Rheumatoid Factor Complement C4 Miscellaneous Test Crossmatch 09/06/16 09/07/16 09/07/16 23:45 02:47 02:47 WBC RBC Hgb Hct MCV MCH MCHC RDW Plt Count Lymph % (Auto) [place] % (Auto) Lymph # [place] # Baso # Seg Neutrophils % Seg Neuts % (Manual) Lymphocytes % (Manual) Monocytes % (Manual) Eosinophils % (Manual) Basophils % (Manual) Nucleated RBC % Seg Neutrophils # Seg Neutrophils # Man Lymphocytes # (Manual) Monocytes # (Manual) Eosinophils # (Manual) Basophils # (Manual) PT INR Fibrinogen dRVVT Confirm Interp Factor V Activity POC ABG pH POC ABG pCO2 POC ABG pO2 ABG pO2 ABG HCO3 ABG Base Excess ABG Hemoglobin Oxyhemoglobin Sodium Potassium Chloride Carbon Dioxide BUN Creatinine Glucose POC Glucose 204 H Lactic Acid Calcium Phosphorus Magnesium Direct Bilirubin AST ALT Alkaline Phosphatase Lactate Dehydrogenase Troponin T C-Reactive Protein Total Protein Albumin Prealbumin Triglycerides Cholesterol LDL Cholesterol Direct HDL Cholesterol Urine pH Urine WBC (Auto) 68.0 H Urine Creatinine 106.1 H Urine Total Protein Fluid Total Protein Vancomycin Trough Rheumatoid Factor Complement C4 Miscellaneous Test Crossmatch 09/07/16 09/07/16 09/07/16 04:50 06:19 06:39 WBC RBC Hgb Hct MCV MCH MCHC RDW Plt Count Lymph % (Auto) [place] % (Auto) Lymph # [place] # Baso # Seg Neutrophils % Seg Neuts % (Manual) Lymphocytes % (Manual) Monocytes % (Manual) Eosinophils % (Manual) Basophils % (Manual) Nucleated RBC % Seg Neutrophils # Seg Neutrophils # Man Lymphocytes # (Manual) Monocytes # (Manual) Eosinophils # (Manual) Basophils # (Manual) PT INR Fibrinogen dRVVT Confirm Interp Factor V Activity POC ABG pH 7.457 H POC ABG pCO2 32.1 L POC ABG pO2 76 L ABG pO2 ABG HCO3 ABG Base Excess ABG Hemoglobin Oxyhemoglobin Sodium 132 L Potassium Chloride 94.7 L Carbon Dioxide BUN 53 H Creatinine 2.9 H Glucose 151 H POC Glucose 149 H Lactic Acid Calcium Phosphorus Magnesium Direct Bilirubin AST ALT Alkaline Phosphatase Lactate Dehydrogenase Troponin T C-Reactive Protein Total Protein Albumin Prealbumin Triglycerides Cholesterol LDL Cholesterol Direct HDL Cholesterol Urine pH Urine WBC (Auto) Urine Creatinine Urine Total Protein Fluid Total Protein Vancomycin Trough Rheumatoid Factor Complement C4 Miscellaneous Test Crossmatch 09/07/16 09/07/16 09/07/16 09:20 11:43 11:43 WBC 19.4 H RBC Hgb 8.3 L Hct 26.4 L D MCV 72 L D MCH 22 L MCHC RDW 17.9 H Plt Count Lymph % (Auto) 8.5 L [place] % (Auto) Lymph # [place] # 1.0 H Baso # Seg Neutrophils % 85.8 H Seg Neuts % (Manual) Lymphocytes % (Manual) Monocytes % (Manual) Eosinophils % (Manual) Basophils % (Manual) Nucleated RBC % Seg Neutrophils # 16.6 H Seg Neutrophils # Man Lymphocytes # (Manual) Monocytes # (Manual) Eosinophils # (Manual) Basophils # (Manual) PT INR Fibrinogen dRVVT Confirm Interp Factor V Activity POC ABG pH POC ABG pCO2 POC ABG pO2 ABG pO2 ABG HCO3 ABG Base Excess ABG Hemoglobin Oxyhemoglobin Sodium 134 L Potassium Chloride 97.2 L Carbon Dioxide 20 L BUN 58 H Creatinine 2.9 H Glucose 147 H POC Glucose Lactic Acid Calcium Phosphorus 2.40 L Magnesium 2.40 H Direct Bilirubin AST ALT Alkaline Phosphatase Lactate Dehydrogenase Troponin T C-Reactive Protein Total Protein 5.8 L Albumin 2.2 L Prealbumin Triglycerides Cholesterol LDL Cholesterol Direct HDL Cholesterol Urine pH Urine WBC (Auto) Urine Creatinine Urine Total Protein Fluid Total Protein Vancomycin Trough Rheumatoid Factor Complement C4 58 H Miscellaneous Test Crossmatch 09/07/16 09/07/1609/07/17 11:50 16:00 17:31 WBC RBC Hgb Hct MCV MCH MCHC RDW Plt Count Lymph % (Auto) [place] % (Auto) Lymph # [place] # Baso # Seg Neutrophils % Seg Neuts % (Manual) Lymphocytes % (Manual) Monocytes % (Manual) Eosinophils % (Manual) Basophils % (Manual) Nucleated RBC % Seg Neutrophils # Seg Neutrophils # Man Lymphocytes # (Manual) Monocytes # (Manual) Eosinophils # (Manual) Basophils # (Manual) PT INR Fibrinogen dRVVT Confirm Interp Factor V Activity POC ABG pH POC ABG pCO2 POC ABG pO2 158 H ABG pO2 ABG HCO3 ABG Base Excess ABG Hemoglobin Oxyhemoglobin Sodium Potassium Chloride Carbon Dioxide BUN Creatinine Glucose POC Glucose 175 H Lactic Acid Calcium Phosphorus Magnesium Direct Bilirubin AST ALT Alkaline Phosphatase Lactate Dehydrogenase Troponin T C-Reactive Protein Total Protein Albumin Prealbumin Triglycerides Cholesterol LDL Cholesterol Direct HDL Cholesterol Urine pH Urine WBC (Auto) Urine Creatinine 66.3 H Urine Total Protein Fluid Total Protein Vancomycin Trough Rheumatoid Factor Complement C4 Miscellaneous Test Crossmatch 09/07/16 09/08/16 09/08/16 23:50 05:46 06:18 WBC 17.8 H RBC 3.58 L Hgb 8.1 L Hct 25.5 L MCV 71 L MCH 23 L MCHC RDW 18.4 H Plt Count Lymph % (Auto) [place] % (Auto) Lymph # [place] # Baso # Seg Neutrophils % Seg Neuts % (Manual) 92.0 H Lymphocytes % (Manual) 6.0 L Monocytes % (Manual) Eosinophils % (Manual) Basophils % (Manual) Nucleated RBC % Seg Neutrophils # Seg Neutrophils # Man 16.4 H Lymphocytes # (Manual) 1.1 L Monocytes # (Manual) Eosinophils # (Manual) Basophils # (Manual) PT INR Fibrinogen dRVVT Confirm Interp Factor V Activity POC ABG pH POC ABG pCO2 34.3 L POC ABG pO2 71 L ABG pO2 ABG HCO3 ABG Base Excess ABG Hemoglobin Oxyhemoglobin Sodium Potassium Chloride Carbon Dioxide BUN Creatinine Glucose POC Glucose 216 H Lactic Acid Calcium Phosphorus Magnesium Direct Bilirubin AST ALT Alkaline Phosphatase Lactate Dehydrogenase Troponin T C-Reactive Protein Total Protein Albumin Prealbumin Triglycerides Cholesterol LDL Cholesterol Direct HDL Cholesterol Urine pH Urine WBC (Auto) Urine Creatinine Urine Total Protein Fluid Total Protein Vancomycin Trough Rheumatoid Factor Complement C4 Miscellaneous Test Crossmatch 0709/[id number] 09/08/16 06:18 06:51 10:55 WBC RBC Hgb Hct MCV MCH MCHC RDW Plt Count Lymph % (Auto) [place] % (Auto) Lymph # [place] # Baso # Seg Neutrophils % Seg Neuts % (Manual) Lymphocytes % (Manual) Monocytes % (Manual) Eosinophils % (Manual) Basophils % (Manual) Nucleated RBC % Seg Neutrophils # Seg Neutrophils # Man Lymphocytes # (Manual) Monocytes # (Manual) Eosinophils # (Manual) Basophils # (Manual) PT INR Fibrinogen dRVVT Confirm Interp Factor V Activity POC ABG pH POC ABG pCO2 POC ABG pO2 ABG pO2 ABG HCO3 ABG Base Excess ABG Hemoglobin Oxyhemoglobin Sodium 133 L Potassium Chloride 96.9 L Carbon Dioxide 20 L BUN 63 H Creatinine 2.7 H Glucose 195 H POC Glucose 204 H 169 H Lactic Acid Calcium Phosphorus Magnesium Direct Bilirubin AST ALT Alkaline Phosphatase Lactate Dehydrogenase Troponin T C-Reactive Protein Total Protein Albumin Prealbumin Triglycerides Cholesterol LDL Cholesterol Direct HDL Cholesterol Urine pH Urine WBC (Auto) Urine Creatinine Urine Total Protein Fluid Total Protein Vancomycin Trough Rheumatoid Factor Complement C4 Miscellaneous Test Crossmatch 09/08/16 09/08/16 09/08/16 11:48 11:48 11:48 WBC RBC Hgb Hct MCV MCH MCHC RDW Plt Count Lymph % (Auto) [place] % (Auto) Lymph # [place] # Baso # Seg Neutrophils % Seg Neuts % (Manual) Lymphocytes % (Manual) Monocytes % (Manual) Eosinophils % (Manual) Basophils % (Manual) Nucleated RBC % Seg Neutrophils # Seg Neutrophils # Man Lymphocytes # (Manual) Monocytes # (Manual) Eosinophils # (Manual) Basophils # (Manual) PT INR Fibrinogen 750 H dRVVT Confirm Interp Factor V Activity POC ABG pH POC ABG pCO2 POC ABG pO2 ABG pO2 ABG HCO3 ABG Base Excess ABG Hemoglobin Oxyhemoglobin Sodium Potassium Chloride Carbon Dioxide BUN Creatinine Glucose POC Glucose Lactic Acid Calcium Phosphorus Magnesium Direct Bilirubin AST ALT Alkaline Phosphatase Lactate Dehydrogenase Troponin T C-Reactive Protein 15.70 H Total Protein Albumin Prealbumin Triglycerides Cholesterol LDL Cholesterol Direct HDL Cholesterol Urine pH Urine WBC (Auto) Urine Creatinine Urine Total Protein Fluid Total Protein Vancomycin Trough Rheumatoid Factor 24 H Complement C4 Miscellaneous Test Crossmatch 09/08/16 09/08/16 09/09/16 15:35 18:25 00:24 WBC RBC Hgb Hct MCV MCH MCHC RDW Plt Count Lymph % (Auto) [place] % (Auto) Lymph # [place] # Baso # Seg Neutrophils % Seg Neuts % (Manual) Lymphocytes % (Manual) Monocytes % (Manual) Eosinophils % (Manual) Basophils % (Manual) Nucleated RBC % Seg Neutrophils # Seg Neutrophils # Man Lymphocytes # (Manual) Monocytes # (Manual) Eosinophils # (Manual) Basophils # (Manual) PT INR Fibrinogen dRVVT Confirm Interp Factor V Activity 182 H POC ABG pH POC ABG pCO2 POC ABG pO2 ABG pO2 ABG HCO3 ABG Base Excess ABG Hemoglobin Oxyhemoglobin Sodium Potassium Chloride Carbon Dioxide BUN Creatinine Glucose POC Glucose 184 H 216 H Lactic Acid Calcium Phosphorus Magnesium Direct Bilirubin AST ALT Alkaline Phosphatase Lactate Dehydrogenase Troponin T C-Reactive Protein Total Protein Albumin Prealbumin Triglycerides Cholesterol LDL Cholesterol Direct HDL Cholesterol Urine pH Urine WBC (Auto) Urine Creatinine Urine Total Protein Fluid Total Protein Vancomycin Trough Rheumatoid Factor Complement C4 Miscellaneous Test Crossmatch 09/09/16 09/09/16 09/09/16 03:00 03:00 04:04 WBC 27.9 H RBC Hgb 8.7 L Hct 28.1 L MCV 72 L MCH 22 L MCHC RDW 18.4 H Plt Count 485 H Lymph % (Auto) [place] % (Auto) Lymph # [place] # Baso # Seg Neutrophils % Seg Neuts % (Manual) 77.0 H Lymphocytes % (Manual) 9.0 L Monocytes % (Manual) Eosinophils % (Manual) Basophils % (Manual) Nucleated RBC % Seg Neutrophils # Seg Neutrophils # Man 21.5 H Lymphocytes # (Manual) Monocytes # (Manual) 2.0 H Eosinophils # (Manual) Basophils # (Manual) PT INR Fibrinogen dRVVT Confirm Interp Factor V Activity POC ABG pH POC ABG pCO2 POC ABG pO2 121 H ABG pO2 ABG HCO3 ABG Base Excess ABG Hemoglobin Oxyhemoglobin Sodium 135 L Potassium Chloride 96.3 L Carbon Dioxide 21 L BUN 83 H Creatinine 3.0 H Glucose 135 H POC Glucose Lactic Acid Calcium Phosphorus Magnesium Direct Bilirubin AST ALT Alkaline Phosphatase Lactate Dehydrogenase Troponin T C-Reactive Protein Total Protein Albumin Prealbumin Triglycerides Cholesterol LDL Cholesterol Direct HDL Cholesterol Urine pH Urine WBC (Auto) Urine Creatinine Urine Total Protein Fluid Total Protein Vancomycin Trough Rheumatoid Factor Complement C4 Miscellaneous Test Crossmatch 09/09/16 09/09/16 09/09/16 05:41 11:55 14:13 WBC RBC Hgb Hct MCV MCH MCHC RDW Plt Count Lymph % (Auto) [place] % (Auto) Lymph # [place] # Baso # Seg Neutrophils % Seg Neuts % (Manual) Lymphocytes % (Manual) Monocytes % (Manual) Eosinophils % (Manual) Basophils % (Manual) Nucleated RBC % Seg Neutrophils # Seg Neutrophils # Man Lymphocytes # (Manual) Monocytes # (Manual) Eosinophils # (Manual) Basophils # (Manual) PT INR Fibrinogen dRVVT Confirm Interp Factor V Activity POC ABG pH POC ABG pCO2 POC ABG pO2 ABG pO2 ABG HCO3 ABG Base Excess ABG Hemoglobin Oxyhemoglobin Sodium Potassium Chloride Carbon Dioxide BUN Creatinine Glucose POC Glucose 155 H 186 H Lactic Acid Calcium Phosphorus Magnesium Direct Bilirubin AST ALT Alkaline Phosphatase Lactate Dehydrogenase Troponin T C-Reactive Protein Total Protein Albumin Prealbumin Triglycerides Cholesterol LDL Cholesterol Direct HDL Cholesterol Urine pH Urine WBC (Auto) 25.0 H Urine Creatinine Urine Total Protein Fluid Total Protein Vancomycin Trough Rheumatoid Factor Complement C4 Miscellaneous Test Crossmatch 09/09/16 09/09/16 09/10/16 17:33 23:13 05:09 WBC RBC Hgb Hct MCV MCH MCHC RDW Plt Count Lymph % (Auto) [place] % (Auto) Lymph # [place] # Baso # Seg Neutrophils % Seg Neuts % (Manual) Lymphocytes % (Manual) Monocytes % (Manual) Eosinophils % (Manual) Basophils % (Manual) Nucleated RBC % Seg Neutrophils # Seg Neutrophils # Man Lymphocytes # (Manual) Monocytes # (Manual) Eosinophils # (Manual) Basophils # (Manual) PT INR Fibrinogen dRVVT Confirm Interp Factor V Activity POC ABG pH POC ABG pCO2 POC ABG pO2 74 L ABG pO2 ABG HCO3 ABG Base Excess ABG Hemoglobin Oxyhemoglobin Sodium Potassium Chloride Carbon Dioxide BUN Creatinine Glucose POC Glucose 211 H 215 H Lactic Acid Calcium Phosphorus Magnesium Direct Bilirubin AST ALT Alkaline Phosphatase Lactate Dehydrogenase Troponin T C-Reactive Protein Total Protein Albumin Prealbumin Triglycerides Cholesterol LDL Cholesterol Direct HDL Cholesterol Urine pH Urine WBC (Auto) Urine Creatinine Urine Total Protein Fluid Total Protein Vancomycin Trough Rheumatoid Factor Complement C4 Miscellaneous Test Crossmatch 09/10/16 09/10/16 09/10/16 05:17 05:17 11:31 WBC 15.8 H RBC 3.25 L Hgb 7.3 L Hct 22.9 L MCV 71 L MCH 23 L MCHC RDW 18.4 H Plt Count Lymph % (Auto) [place] % (Auto) Lymph # [place] # Baso # Seg Neutrophils % Seg Neuts % (Manual) 91.0 H Lymphocytes % (Manual) 4.0 L Monocytes % (Manual) Eosinophils % (Manual) Basophils % (Manual) Nucleated RBC % Seg Neutrophils # Seg Neutrophils # Man 14.4 H Lymphocytes # (Manual) 0.6 L Monocytes # (Manual) Eosinophils # (Manual) Basophils # (Manual) PT INR Fibrinogen dRVVT Confirm Interp Factor V Activity POC ABG pH POC ABG pCO2 POC ABG pO2 ABG pO2 ABG HCO3 ABG Base Excess ABG Hemoglobin Oxyhemoglobin Sodium Potassium Chloride Carbon Dioxide 21 L BUN 93 H Creatinine 2.9 H Glucose 146 H POC Glucose 188 H Lactic Acid Calcium 8.1 L Phosphorus Magnesium Direct Bilirubin AST ALT Alkaline Phosphatase Lactate Dehydrogenase Troponin T C-Reactive Protein Total Protein Albumin Prealbumin Triglycerides Cholesterol LDL Cholesterol Direct HDL Cholesterol Urine pH Urine WBC (Auto) Urine Creatinine Urine Total Protein Fluid Total Protein Vancomycin Trough Rheumatoid Factor Complement C4 Miscellaneous Test Crossmatch 09/10/16 09/10/16 09/10/16 13:17 17:20 23:32 WBC RBC Hgb Hct MCV MCH MCHC RDW Plt Count Lymph % (Auto) [place] % (Auto) Lymph # [place] # Baso # Seg Neutrophils % Seg Neuts % (Manual) Lymphocytes % (Manual) Monocytes % (Manual) Eosinophils % (Manual) Basophils % (Manual) Nucleated RBC % Seg Neutrophils # Seg Neutrophils # Man Lymphocytes # (Manual) Monocytes # (Manual) Eosinophils # (Manual) Basophils # (Manual) PT INR Fibrinogen dRVVT Confirm Interp Factor V Activity POC ABG pH POC ABG pCO2 POC ABG pO2 ABG pO2 ABG HCO3 ABG Base Excess ABG Hemoglobin Oxyhemoglobin Sodium Potassium Chloride Carbon Dioxide BUN Creatinine Glucose POC Glucose 199 H 186 H Lactic Acid Calcium Phosphorus Magnesium Direct Bilirubin AST ALT Alkaline Phosphatase Lactate Dehydrogenase Troponin T C-Reactive Protein Total Protein Albumin Prealbumin Triglycerides Cholesterol LDL Cholesterol Direct HDL Cholesterol Urine pH Urine WBC (Auto) Urine Creatinine Urine Total Protein Fluid Total Protein Vancomycin Trough Rheumatoid Factor Complement C4 Miscellaneous Test Crossmatch See Detail 09/11/16 09/11/16 09/11/16 05:10 05:10 05:17 WBC 28.4 H RBC Hgb 9.2 L Hct 29.3 L D MCV 73 L MCH 23 L MCHC RDW 18.9 H Plt Count 452 H Lymph % (Auto) [place] % (Auto) Lymph # [place] # Baso # Seg Neutrophils % Seg Neuts % (Manual) 89.5 H Lymphocytes % (Manual) 2.0 L Monocytes % (Manual) Eosinophils % (Manual) Basophils % (Manual) Nucleated RBC % Seg Neutrophils # Seg Neutrophils # Man 25.4 H Lymphocytes # (Manual) 0.6 L Monocytes # (Manual) 1.3 H Eosinophils # (Manual) Basophils # (Manual) PT INR Fibrinogen dRVVT Confirm Interp Factor V Activity POC ABG pH POC ABG pCO2 POC ABG pO2 ABG pO2 ABG HCO3 ABG Base Excess ABG Hemoglobin Oxyhemoglobin Sodium 136 L Potassium Chloride Carbon Dioxide 18 L BUN 107 H Creatinine 2.6 H Glucose 187 H POC Glucose 230 H Lactic Acid Calcium 8.3 L Phosphorus Magnesium Direct Bilirubin AST ALT Alkaline Phosphatase Lactate Dehydrogenase Troponin T C-Reactive Protein Total Protein Albumin Prealbumin Triglycerides Cholesterol LDL Cholesterol Direct HDL Cholesterol Urine pH Urine WBC (Auto) Urine Creatinine Urine Total Protein Fluid Total Protein Vancomycin Trough Rheumatoid Factor Complement C4 Miscellaneous Test Crossmatch 09/11/16 09/11/16 09/11/16 05:55 12:02 17:32 WBC RBC Hgb Hct MCV MCH MCHC RDW Plt Count Lymph % (Auto) [place] % (Auto) Lymph # [place] # Baso # Seg Neutrophils % Seg Neuts % (Manual) Lymphocytes % (Manual) Monocytes % (Manual) Eosinophils % (Manual) Basophils % (Manual) Nucleated RBC % Seg Neutrophils # Seg Neutrophils # Man Lymphocytes # (Manual) Monocytes # (Manual) Eosinophils # (Manual) Basophils # (Manual) PT INR Fibrinogen dRVVT Confirm Interp Factor V Activity POC ABG pH POC ABG pCO2 33.8 L POC ABG pO2 ABG pO2 ABG HCO3 ABG Base Excess ABG Hemoglobin Oxyhemoglobin Sodium Potassium Chloride Carbon Dioxide BUN Creatinine Glucose POC Glucose 191 H 239 H Lactic Acid Calcium Phosphorus Magnesium Direct Bilirubin AST ALT Alkaline Phosphatase Lactate Dehydrogenase Troponin T C-Reactive Protein Total Protein Albumin Prealbumin Triglycerides Cholesterol LDL Cholesterol Direct HDL Cholesterol Urine pH Urine WBC (Auto) Urine Creatinine Urine Total Protein Fluid Total Protein Vancomycin Trough Rheumatoid Factor Complement C4 Miscellaneous Test Crossmatch 09/11/16 09/12/16 09/12/16 23:52 05:09 05:32 WBC RBC Hgb Hct MCV MCH MCHC RDW Plt Count Lymph % (Auto) [place] % (Auto) Lymph # [place] # Baso # Seg Neutrophils % Seg Neuts % (Manual) Lymphocytes % (Manual) Monocytes % (Manual) Eosinophils % (Manual) Basophils % (Manual) Nucleated RBC % Seg Neutrophils # Seg Neutrophils # Man Lymphocytes # (Manual) Monocytes # (Manual) Eosinophils # (Manual) Basophils # (Manual) PT INR Fibrinogen dRVVT Confirm Interp Factor V Activity POC ABG pH POC ABG pCO2 34.6 L POC ABG pO2 ABG pO2 ABG HCO3 ABG Base Excess ABG Hemoglobin Oxyhemoglobin Sodium Potassium Chloride Carbon Dioxide BUN Creatinine Glucose POC Glucose 265 H 184 H Lactic Acid Calcium Phosphorus Magnesium Direct Bilirubin AST ALT Alkaline Phosphatase Lactate Dehydrogenase Troponin T C-Reactive Protein Total Protein Albumin Prealbumin Triglycerides Cholesterol LDL Cholesterol Direct HDL Cholesterol Urine pH Urine WBC (Auto) Urine Creatinine Urine Total Protein Fluid Total Protein Vancomycin Trough Rheumatoid Factor Complement C4 Miscellaneous Test Crossmatch 09/12/16 09/12/16 09/12/16 06:45 06:45 07:22 WBC 31.7 H RBC 3.54 L Hgb 8.3 L Hct 25.9 L MCV 73 L MCH 23 L MCHC RDW 18.9 H Plt Count Lymph % (Auto) [place] % (Auto) Lymph # [place] # Baso # Seg Neutrophils % Seg Neuts % (Manual) 88.5 H Lymphocytes % (Manual) 4.5 L Monocytes % (Manual) Eosinophils % (Manual) Basophils % (Manual) Nucleated RBC % Seg Neutrophils # Seg Neutrophils # Man 28.1 H Lymphocytes # (Manual) Monocytes # (Manual) 1.0 H Eosinophils # (Manual) Basophils # (Manual) PT INR Fibrinogen dRVVT Confirm Interp Factor V Activity POC ABG pH POC ABG pCO2 POC ABG pO2 ABG pO2 ABG HCO3 ABG Base Excess ABG Hemoglobin Oxyhemoglobin Sodium Potassium Chloride Carbon Dioxide 20 L BUN 115 H Creatinine 2.7 H Glucose 165 H POC Glucose Lactic Acid Calcium 8.0 L Phosphorus Magnesium Direct Bilirubin AST ALT Alkaline Phosphatase Lactate Dehydrogenase Troponin T C-Reactive Protein Total Protein Albumin Prealbumin Triglycerides 217 H Cholesterol LDL Cholesterol Direct HDL Cholesterol Urine pH Urine WBC (Auto) Urine Creatinine Urine Total Protein Fluid Total Protein Vancomycin Trough Rheumatoid Factor Complement C4 Miscellaneous Test Crossmatch 09/12/16 09/12/16 09/12/16 07:22 09:59 12:21 WBC RBC Hgb Hct MCV MCH MCHC RDW Plt Count Lymph % (Auto) [place] % (Auto) Lymph # [place] # Baso # Seg Neutrophils % Seg Neuts % (Manual) Lymphocytes % (Manual) Monocytes % (Manual) Eosinophils % (Manual) Basophils % (Manual) Nucleated RBC % Seg Neutrophils # Seg Neutrophils # Man Lymphocytes # (Manual) Monocytes # (Manual) Eosinophils # (Manual) Basophils # (Manual) PT INR Fibrinogen dRVVT Confirm Interp Positive H Factor V Activity POC ABG pH POC ABG pCO2 POC ABG pO2 ABG pO2 ABG HCO3 ABG Base Excess ABG Hemoglobin Oxyhemoglobin Sodium Potassium Chloride Carbon Dioxide BUN Creatinine Glucose POC Glucose 224 H Lactic Acid Calcium Phosphorus Magnesium Direct Bilirubin AST ALT Alkaline Phosphatase Lactate Dehydrogenase Troponin T C-Reactive Protein 1.70 H Total Protein Albumin Prealbumin Triglycerides Cholesterol LDL Cholesterol Direct HDL Cholesterol Urine pH Urine WBC (Auto) Urine Creatinine Urine Total Protein Fluid Total Protein Vancomycin Trough Rheumatoid Factor Complement C4 Miscellaneous Test Crossmatch 09/12/16 09/12/16 09/13/16 16:51 23:28 04:00 WBC 45.0 H* RBC Hgb 9.4 L Hct MCV 75 L MCH 23 L MCHC RDW 19.0 H Plt Count 470 H Lymph % (Auto) [place] % (Auto) Lymph # [place] # Baso # Seg Neutrophils % Seg Neuts % (Manual) 89.0 H Lymphocytes % (Manual) 5.0 L Monocytes % (Manual) Eosinophils % (Manual) Basophils % (Manual) Nucleated RBC % Seg Neutrophils # Seg Neutrophils # Man 40.1 H Lymphocytes # (Manual) Monocytes # (Manual) Eosinophils # (Manual) Basophils # (Manual) PT INR Fibrinogen dRVVT Confirm Interp Factor V Activity POC ABG pH POC ABG pCO2 POC ABG pO2 ABG pO2 ABG HCO3 ABG Base Excess ABG Hemoglobin Oxyhemoglobin Sodium Potassium Chloride Carbon Dioxide BUN Creatinine Glucose POC Glucose 169 H 150 H Lactic Acid Calcium Phosphorus Magnesium Direct Bilirubin AST ALT Alkaline Phosphatase Lactate Dehydrogenase Troponin T C-Reactive Protein Total Protein Albumin Prealbumin Triglycerides Cholesterol LDL Cholesterol Direct HDL Cholesterol Urine pH Urine WBC (Auto) Urine Creatinine Urine Total Protein Fluid Total Protein Vancomycin Trough Rheumatoid Factor Complement C4 Miscellaneous Test Crossmatch 09/13/16 09/13/16 09/13/16 04:00 11:26 17:31 WBC RBC Hgb Hct MCV MCH MCHC RDW Plt Count Lymph % (Auto) [place] % (Auto) Lymph # [place] # Baso # Seg Neutrophils % Seg Neuts % (Manual) Lymphocytes % (Manual) Monocytes % (Manual) Eosinophils % (Manual) Basophils % (Manual) Nucleated RBC % Seg Neutrophils # Seg Neutrophils # Man Lymphocytes # (Manual) Monocytes # (Manual) Eosinophils # (Manual) Basophils # (Manual) PT INR Fibrinogen dRVVT Confirm Interp Factor V Activity POC ABG pH POC ABG pCO2 POC ABG pO2 ABG pO2 ABG HCO3 ABG Base Excess ABG Hemoglobin Oxyhemoglobin Sodium Potassium Chloride Carbon Dioxide 20 L BUN 116 H Creatinine 3.0 H Glucose 172 H POC Glucose 140 H 183 H Lactic Acid Calcium Phosphorus Magnesium Direct Bilirubin AST ALT Alkaline Phosphatase Lactate Dehydrogenase Troponin T C-Reactive Protein Total Protein 6.2 L Albumin 2.9 L Prealbumin Triglycerides Cholesterol LDL Cholesterol Direct HDL Cholesterol Urine pH Urine WBC (Auto) Urine Creatinine Urine Total Protein Fluid Total Protein Vancomycin Trough Rheumatoid Factor Complement C4 Miscellaneous Test Crossmatch 09/13/16 09/14/16 09/14/16 23:23 04:06 04:07 WBC 29.4 H RBC Hgb 8.9 L Hct 27.3 L MCV 75 L MCH 24 L MCHC RDW 19.1 H Plt Count Lymph % (Auto) [place] % (Auto) Lymph # [place] # Baso # Seg Neutrophils % Seg Neuts % (Manual) 84.0 H Lymphocytes % (Manual) 6.0 L Monocytes % (Manual) 9.0 H Eosinophils % (Manual) Basophils % (Manual) Nucleated RBC % Seg Neutrophils # Seg Neutrophils # Man 24.7 H Lymphocytes # (Manual) Monocytes # (Manual) 2.6 H Eosinophils # (Manual) Basophils # (Manual) PT INR Fibrinogen dRVVT Confirm Interp Factor V Activity POC ABG pH 7.342 L POC ABG pCO2 POC ABG pO2 116 H ABG pO2 ABG HCO3 ABG Base Excess ABG Hemoglobin Oxyhemoglobin Sodium Potassium Chloride Carbon Dioxide BUN Creatinine Glucose POC Glucose 154 H Lactic Acid Calcium Phosphorus Magnesium Direct Bilirubin AST ALT Alkaline Phosphatase Lactate Dehydrogenase Troponin T C-Reactive Protein Total Protein Albumin Prealbumin Triglycerides Cholesterol LDL Cholesterol Direct HDL Cholesterol Urine pH Urine WBC (Auto) Urine Creatinine Urine Total Protein Fluid Total Protein Vancomycin Trough Rheumatoid Factor Complement C4 Miscellaneous Test Crossmatch 09/14/16 09/14/16 09/14/16 04:07 05:29 12:19 WBC RBC Hgb Hct MCV MCH MCHC RDW Plt Count Lymph % (Auto) [place] % (Auto) Lymph # [place] # Baso # Seg Neutrophils % Seg Neuts % (Manual) Lymphocytes % (Manual) Monocytes % (Manual) Eosinophils % (Manual) Basophils % (Manual) Nucleated RBC % Seg Neutrophils # Seg Neutrophils # Man Lymphocytes # (Manual) Monocytes # (Manual) Eosinophils # (Manual) Basophils # (Manual) PT INR Fibrinogen dRVVT Confirm Interp Factor V Activity POC ABG pH POC ABG pCO2 POC ABG pO2 ABG pO2 ABG HCO3 ABG Base Excess ABG Hemoglobin Oxyhemoglobin Sodium 136 L Potassium Chloride Carbon Dioxide 18 L BUN 121 H Creatinine 2.8 H Glucose 214 H POC Glucose 239 H 181 H Lactic Acid Calcium Phosphorus Magnesium Direct Bilirubin AST ALT Alkaline Phosphatase Lactate Dehydrogenase Troponin T C-Reactive Protein Total Protein Albumin Prealbumin Triglycerides Cholesterol LDL Cholesterol Direct HDL Cholesterol Urine pH Urine WBC (Auto) Urine Creatinine Urine Total Protein Fluid Total Protein Vancomycin Trough Rheumatoid Factor Complement C4 Miscellaneous Test Crossmatch 09/14/16 09/14/16 09/15/16 18:12 23:37 05:00 WBC 26.1 H RBC 3.05 L Hgb 7.2 L Hct 22.9 L MCV 75 L MCH 24 L MCHC RDW 19.0 H Plt Count Lymph % (Auto) [place] % (Auto) Lymph # [place] # Baso # Seg Neutrophils % Seg Neuts % (Manual) Lymphocytes % (Manual) Monocytes % (Manual) Eosinophils % (Manual) Basophils % (Manual) Nucleated RBC % Seg Neutrophils # Seg Neutrophils # Man Lymphocytes # (Manual) Monocytes # (Manual) Eosinophils # (Manual) Basophils # (Manual) PT INR Fibrinogen dRVVT Confirm Interp Factor V Activity POC ABG pH POC ABG pCO2 POC ABG pO2 ABG pO2 ABG HCO3 ABG Base Excess ABG Hemoglobin Oxyhemoglobin Sodium Potassium Chloride Carbon Dioxide BUN Creatinine Glucose POC Glucose 266 H 154 H Lactic Acid Calcium Phosphorus Magnesium Direct Bilirubin AST ALT Alkaline Phosphatase Lactate Dehydrogenase Troponin T C-Reactive Protein Total Protein Albumin Prealbumin Triglycerides Cholesterol LDL Cholesterol Direct HDL Cholesterol Urine pH Urine WBC (Auto) Urine Creatinine Urine Total Protein Fluid Total Protein Vancomycin Trough Rheumatoid Factor Complement C4 Miscellaneous Test Crossmatch 09/15/16 09/15/16 09/15/16 05:00 05:17 12:45 WBC RBC Hgb Hct MCV MCH MCHC RDW Plt Count Lymph % (Auto) [place] % (Auto) Lymph # [place] # Baso # Seg Neutrophils % Seg Neuts % (Manual) Lymphocytes % (Manual) Monocytes % (Manual) Eosinophils % (Manual) Basophils % (Manual) Nucleated RBC % Seg Neutrophils # Seg Neutrophils # Man Lymphocytes # (Manual) Monocytes # (Manual) Eosinophils # (Manual) Basophils # (Manual) PT INR Fibrinogen dRVVT Confirm Interp Factor V Activity POC ABG pH POC ABG pCO2 POC ABG pO2 ABG pO2 ABG HCO3 ABG Base Excess ABG Hemoglobin Oxyhemoglobin Sodium Potassium 5.2 H Chloride Carbon Dioxide 18 L BUN 139 H Creatinine 3.7 H Glucose 227 H POC Glucose 226 H 244 H Lactic Acid Calcium 8.3 L Phosphorus Magnesium Direct Bilirubin AST ALT Alkaline Phosphatase Lactate Dehydrogenase Troponin T C-Reactive Protein Total Protein Albumin Prealbumin Triglycerides Cholesterol LDL Cholesterol Direct HDL Cholesterol Urine pH Urine WBC (Auto) Urine Creatinine Urine Total Protein Fluid Total Protein Vancomycin Trough Rheumatoid Factor Complement C4 Miscellaneous Test Crossmatch 09/15/16 09/15/16 09/15/16 14:32 17:33 23:35 WBC RBC Hgb Hct MCV MCH MCHC RDW Plt Count Lymph % (Auto) [place] % (Auto) Lymph # [place] # Baso # Seg Neutrophils % Seg Neuts % (Manual) Lymphocytes % (Manual) Monocytes % (Manual) Eosinophils % (Manual) Basophils % (Manual) Nucleated RBC % Seg Neutrophils # Seg Neutrophils # Man Lymphocytes # (Manual) Monocytes # (Manual) Eosinophils # (Manual) Basophils # (Manual) PT INR Fibrinogen dRVVT Confirm Interp Factor V Activity POC ABG pH POC ABG pCO2 27.7 L POC ABG pO2 120 H ABG pO2 ABG HCO3 ABG Base Excess ABG Hemoglobin Oxyhemoglobin Sodium Potassium Chloride Carbon Dioxide BUN Creatinine Glucose POC Glucose 232 H 167 H Lactic Acid Calcium Phosphorus Magnesium Direct Bilirubin AST ALT Alkaline Phosphatase Lactate Dehydrogenase Troponin T C-Reactive Protein Total Protein Albumin Prealbumin Triglycerides Cholesterol LDL Cholesterol Direct HDL Cholesterol Urine pH Urine WBC (Auto) Urine Creatinine Urine Total Protein Fluid Total Protein Vancomycin Trough Rheumatoid Factor Complement C4 Miscellaneous Test Crossmatch 09/16/16 09/16/16 09/16/16 03:58 10:27 10:27 WBC 19.0 H RBC 2.77 L Hgb 6.5 L Hct 20.9 L MCV 76 L MCH 23 L MCHC RDW 19.3 H Plt Count Lymph % (Auto) 11.0 L [place] % (Auto) Lymph # [place] # 1.1 H Baso # Seg Neutrophils % 82.5 H Seg Neuts % (Manual) Lymphocytes % (Manual) Monocytes % (Manual) Eosinophils % (Manual) Basophils % (Manual) Nucleated RBC % Seg Neutrophils # 15.7 H Seg Neutrophils # Man Lymphocytes # (Manual) Monocytes # (Manual) Eosinophils # (Manual) Basophils # (Manual) PT INR Fibrinogen dRVVT Confirm Interp Factor V Activity POC ABG pH POC ABG pCO2 POC ABG pO2 ABG pO2 ABG HCO3 ABG Base Excess ABG Hemoglobin Oxyhemoglobin Sodium Potassium Chloride 109.3 H Carbon Dioxide 18 L BUN 139 H Creatinine 4.1 H Glucose 144 H POC Glucose 146 H Lactic Acid Calcium 8.1 L Phosphorus Magnesium Direct Bilirubin AST ALT Alkaline Phosphatase Lactate Dehydrogenase Troponin T C-Reactive Protein Total Protein Albumin Prealbumin Triglycerides Cholesterol LDL Cholesterol Direct HDL Cholesterol Urine pH Urine WBC (Auto) Urine Creatinine Urine Total Protein Fluid Total Protein Vancomycin Trough Rheumatoid Factor Complement C4 Miscellaneous Test Crossmatch 09/16/16 09/16/16 09/16/16 12:04 12:10 13:55 WBC RBC Hgb Hct MCV MCH MCHC RDW Plt Count Lymph % (Auto) [place] % (Auto) Lymph # [place] # Baso # Seg Neutrophils % Seg Neuts % (Manual) Lymphocytes % (Manual) Monocytes % (Manual) Eosinophils % (Manual) Basophils % (Manual) Nucleated RBC % Seg Neutrophils # Seg Neutrophils # Man Lymphocytes # (Manual) Monocytes # (Manual) Eosinophils # (Manual) Basophils # (Manual) PT INR Fibrinogen dRVVT Confirm Interp Factor V Activity POC ABG pH POC ABG pCO2 32.9 L POC ABG pO2 ABG pO2 ABG HCO3 ABG Base Excess ABG Hemoglobin Oxyhemoglobin Sodium Potassium Chloride Carbon Dioxide BUN Creatinine Glucose POC Glucose 185 H Lactic Acid Calcium Phosphorus Magnesium Direct Bilirubin AST ALT Alkaline Phosphatase Lactate Dehydrogenase Troponin T C-Reactive Protein Total Protein Albumin Prealbumin Triglycerides Cholesterol LDL Cholesterol Direct HDL Cholesterol Urine pH Urine WBC (Auto) Urine Creatinine Urine Total Protein Fluid Total Protein Vancomycin Trough Rheumatoid Factor Complement C4 Miscellaneous Test Crossmatch See Detail 09/16/16 09/16/16 09/16/16 17:55 19:19 23:48 WBC RBC Hgb Hct MCV MCH MCHC RDW Plt Count Lymph % (Auto) [place] % (Auto) Lymph # [place] # Baso # Seg Neutrophils % Seg Neuts % (Manual) Lymphocytes % (Manual) Monocytes % (Manual) Eosinophils % (Manual) Basophils % (Manual) Nucleated RBC % Seg Neutrophils # Seg Neutrophils # Man Lymphocytes # (Manual) Monocytes # (Manual) Eosinophils # (Manual) Basophils # (Manual) PT INR Fibrinogen dRVVT Confirm Interp Factor V Activity POC ABG pH POC ABG pCO2 POC ABG pO2 ABG pO2 ABG HCO3 ABG Base Excess ABG Hemoglobin Oxyhemoglobin Sodium Potassium Chloride Carbon Dioxide BUN Creatinine Glucose POC Glucose 222 H 107 H Lactic Acid Calcium Phosphorus Magnesium Direct Bilirubin AST ALT Alkaline Phosphatase Lactate Dehydrogenase Troponin T C-Reactive Protein Total Protein Albumin Prealbumin Triglycerides Cholesterol LDL Cholesterol Direct HDL Cholesterol Urine pH Urine WBC (Auto) Urine Creatinine 47.4 H Urine Total Protein 16 H Fluid Total Protein Vancomycin Trough Rheumatoid Factor Complement C4 Miscellaneous Test Crossmatch 09/17/16 09/17/16 09/17/16 03:45 03:45 04:55 WBC 19.6 H RBC 3.41 L Hgb 8.5 L Hct 26.7 L MCV 78 L MCH 25 L MCHC RDW 19.9 H Plt Count Lymph % (Auto) 9.3 L [place] % (Auto) Lymph # [place] # 1.2 H Baso # Seg Neutrophils % 83.9 H Seg Neuts % (Manual) Lymphocytes % (Manual) Monocytes % (Manual) Eosinophils % (Manual) Basophils % (Manual) Nucleated RBC % Seg Neutrophils # 16.4 H Seg Neutrophils # Man Lymphocytes # (Manual) Monocytes # (Manual) Eosinophils # (Manual) Basophils # (Manual) PT INR Fibrinogen dRVVT Confirm Interp Factor V Activity POC ABG pH POC ABG pCO2 POC ABG pO2 ABG pO2 ABG HCO3 ABG Base Excess ABG Hemoglobin Oxyhemoglobin Sodium 146 H Potassium 5.1 H Chloride 110.9 H Carbon Dioxide 16 L BUN 146 H Creatinine 4.0 H Glucose 108 H POC Glucose 133 H Lactic Acid Calcium Phosphorus Magnesium 3.00 H Direct Bilirubin AST ALT Alkaline Phosphatase Lactate Dehydrogenase Troponin T C-Reactive Protein Total Protein Albumin Prealbumin Triglycerides Cholesterol LDL Cholesterol Direct HDL Cholesterol Urine pH Urine WBC (Auto) Urine Creatinine Urine Total Protein Fluid Total Protein Vancomycin Trough Rheumatoid Factor Complement C4 Miscellaneous Test Crossmatch 09/17/16 09/17/16 09/17/16 11:15 17:33 23:47 WBC RBC Hgb Hct MCV MCH MCHC RDW Plt Count Lymph % (Auto) [place] % (Auto) Lymph # [place] # Baso # Seg Neutrophils % Seg Neuts % (Manual) Lymphocytes % (Manual) Monocytes % (Manual) Eosinophils % (Manual) Basophils % (Manual) Nucleated RBC % Seg Neutrophils # Seg Neutrophils # Man Lymphocytes # (Manual) Monocytes # (Manual) Eosinophils # (Manual) Basophils # (Manual) PT INR Fibrinogen dRVVT Confirm Interp Factor V Activity POC ABG pH POC ABG pCO2 POC ABG pO2 ABG pO2 ABG HCO3 ABG Base Excess ABG Hemoglobin Oxyhemoglobin Sodium Potassium Chloride Carbon Dioxide BUN Creatinine Glucose POC Glucose 176 H 246 H 148 H Lactic Acid Calcium Phosphorus Magnesium Direct Bilirubin AST ALT Alkaline Phosphatase Lactate Dehydrogenase Troponin T C-Reactive Protein Total Protein Albumin Prealbumin Triglycerides Cholesterol LDL Cholesterol Direct HDL Cholesterol Urine pH Urine WBC (Auto) Urine Creatinine Urine Total Protein Fluid Total Protein Vancomycin Trough Rheumatoid Factor Complement C4 Miscellaneous Test Crossmatch 09/18/16 09/18/16 09/18/16 05:33 08:31 08:31 WBC 18.0 H RBC 3.17 L Hgb 9.0 L Hct 25.7 L MCV MCH MCHC 35 H RDW 20.4 H Plt Count Lymph % (Auto) [place] % (Auto) Lymph # [place] # Baso # Seg Neutrophils % Seg Neuts % (Manual) Lymphocytes % (Manual) Monocytes % (Manual) Eosinophils % (Manual) Basophils % (Manual) Nucleated RBC % Seg Neutrophils # Seg Neutrophils # Man Lymphocytes # (Manual) Monocytes # (Manual) Eosinophils # (Manual) Basophils # (Manual) PT INR Fibrinogen dRVVT Confirm Interp Factor V Activity POC ABG pH POC ABG pCO2 POC ABG pO2 ABG pO2 ABG HCO3 ABG Base Excess ABG Hemoglobin Oxyhemoglobin Sodium Potassium Chloride Carbon Dioxide 15 L BUN 124 H Creatinine 3.8 H Glucose POC Glucose 120 H Lactic Acid Calcium 8.1 L Phosphorus Magnesium Direct Bilirubin AST ALT Alkaline Phosphatase Lactate Dehydrogenase Troponin T C-Reactive Protein Total Protein Albumin Prealbumin Triglycerides Cholesterol LDL Cholesterol Direct HDL Cholesterol Urine pH Urine WBC (Auto) Urine Creatinine Urine Total Protein Fluid Total Protein Vancomycin Trough Rheumatoid Factor Complement C4 Miscellaneous Test Crossmatch 09/18/16 09/18/16 09/18/16 12:03 15:34 17:50 WBC RBC Hgb Hct MCV MCH MCHC RDW Plt Count Lymph % (Auto) [place] % (Auto) Lymph # [place] # Baso # Seg Neutrophils % Seg Neuts % (Manual) Lymphocytes % (Manual) Monocytes % (Manual) Eosinophils % (Manual) Basophils % (Manual) Nucleated RBC % Seg Neutrophils # Seg Neutrophils # Man Lymphocytes # (Manual) Monocytes # (Manual) Eosinophils # (Manual) Basophils # (Manual) PT INR Fibrinogen dRVVT Confirm Interp Factor V Activity POC ABG pH POC ABG pCO2 25.7 L POC ABG pO2 66 L ABG pO2 ABG HCO3 ABG Base Excess ABG Hemoglobin Oxyhemoglobin Sodium Potassium Chloride Carbon Dioxide BUN Creatinine Glucose POC Glucose 156 H 220 H Lactic Acid Calcium Phosphorus Magnesium Direct Bilirubin AST ALT Alkaline Phosphatase Lactate Dehydrogenase Troponin T C-Reactive Protein Total Protein Albumin Prealbumin Triglycerides Cholesterol LDL Cholesterol Direct HDL Cholesterol Urine pH Urine WBC (Auto) Urine Creatinine Urine Total Protein Fluid Total Protein Vancomycin Trough Rheumatoid Factor Complement C4 Miscellaneous Test Crossmatch 09/19/16 09/19/16 09/19/16 06:21 09:50 09:50 WBC 17.1 H RBC 3.49 L Hgb 9.0 L Hct 28.1 L MCV MCH 26 L MCHC RDW 20.8 H Plt Count Lymph % (Auto) 11.5 L [place] % (Auto) 7.5 H Lymph # [place] # 1.3 H Baso # Seg Neutrophils % 79.8 H Seg Neuts % (Manual) Lymphocytes % (Manual) Monocytes % (Manual) Eosinophils % (Manual) Basophils % (Manual) Nucleated RBC % Seg Neutrophils # 13.7 H Seg Neutrophils # Man Lymphocytes # (Manual) Monocytes # (Manual) Eosinophils # (Manual) Basophils # (Manual) PT INR Fibrinogen dRVVT Confirm Interp Factor V Activity POC ABG pH POC ABG pCO2 POC ABG pO2 ABG pO2 ABG HCO3 ABG Base Excess ABG Hemoglobin Oxyhemoglobin Sodium Potassium Chloride 108.6 H Carbon Dioxide 15 L BUN 125 H Creatinine 4.1 H Glucose 124 H POC Glucose 119 H Lactic Acid Calcium Phosphorus Magnesium Direct Bilirubin AST ALT Alkaline Phosphatase Lactate Dehydrogenase Troponin T C-Reactive Protein Total Protein Albumin Prealbumin Triglycerides Cholesterol LDL Cholesterol Direct HDL Cholesterol Urine pH Urine WBC (Auto) Urine Creatinine Urine Total Protein Fluid Total Protein Vancomycin Trough Rheumatoid Factor Complement C4 Miscellaneous Test Crossmatch 09/19/16 09/19/16 09/19/16 11:25 17:53 23:36 WBC RBC Hgb Hct MCV MCH MCHC RDW Plt Count Lymph % (Auto) [place] % (Auto) Lymph # [place] # Baso # Seg Neutrophils % Seg Neuts % (Manual) Lymphocytes % (Manual) Monocytes % (Manual) Eosinophils % (Manual) Basophils % (Manual) Nucleated RBC % Seg Neutrophils # Seg Neutrophils # Man Lymphocytes # (Manual) Monocytes # (Manual) Eosinophils # (Manual) Basophils # (Manual) PT INR Fibrinogen dRVVT Confirm Interp Factor V Activity POC ABG pH POC ABG pCO2 POC ABG pO2 ABG pO2 ABG HCO3 ABG Base Excess ABG Hemoglobin Oxyhemoglobin Sodium Potassium Chloride Carbon Dioxide BUN Creatinine Glucose POC Glucose 160 H 245 H 121 H Lactic Acid Calcium Phosphorus Magnesium Direct Bilirubin AST ALT Alkaline Phosphatase Lactate Dehydrogenase Troponin T C-Reactive Protein Total Protein Albumin Prealbumin Triglycerides Cholesterol LDL Cholesterol Direct HDL Cholesterol Urine pH Urine WBC (Auto) Urine Creatinine Urine Total Protein Fluid Total Protein Vancomycin Trough Rheumatoid Factor Complement C4 Miscellaneous Test Crossmatch 09/20/16 09/20/16 09/20/16 04:10 04:10 04:10 WBC 17.0 H RBC 3.21 L Hgb 8.2 L Hct 25.5 L MCV MCH 26 L MCHC RDW 20.9 H Plt Count Lymph % (Auto) [place] % (Auto) Lymph # [place] # Baso # Seg Neutrophils % Seg Neuts % (Manual) Lymphocytes % (Manual) Monocytes % (Manual) Eosinophils % (Manual) Basophils % (Manual) Nucleated RBC % Seg Neutrophils # Seg Neutrophils # Man Lymphocytes # (Manual) Monocytes # (Manual) Eosinophils # (Manual) Basophils # (Manual) PT INR Fibrinogen dRVVT Confirm Interp Factor V Activity POC ABG pH POC ABG pCO2 POC ABG pO2 ABG pO2 ABG HCO3 ABG Base Excess ABG Hemoglobin Oxyhemoglobin Sodium Potassium Chloride 111.0 H Carbon Dioxide 16 L BUN 129 H Creatinine 3.7 H Glucose 115 H POC Glucose Lactic Acid Calcium 8.2 L Phosphorus Magnesium Direct Bilirubin AST ALT Alkaline Phosphatase Lactate Dehydrogenase Troponin T C-Reactive Protein Total Protein Albumin Prealbumin Triglycerides 243 H Cholesterol LDL Cholesterol Direct HDL Cholesterol Urine pH Urine WBC (Auto) Urine Creatinine Urine Total Protein Fluid Total Protein Vancomycin Trough Rheumatoid Factor Complement C4 Miscellaneous Test Crossmatch 09/20/16 09/20/16 09/20/16 05:40 11:52 16:50 WBC RBC Hgb Hct MCV MCH MCHC RDW Plt Count Lymph % (Auto) [place] % (Auto) Lymph # [place] # Baso # Seg Neutrophils % Seg Neuts % (Manual) Lymphocytes % (Manual) Monocytes % (Manual) Eosinophils % (Manual) Basophils % (Manual) Nucleated RBC % Seg Neutrophils # Seg Neutrophils # Man Lymphocytes # (Manual) Monocytes # (Manual) Eosinophils # (Manual) Basophils # (Manual) PT INR Fibrinogen dRVVT Confirm Interp Factor V Activity POC ABG pH POC ABG pCO2 POC ABG pO2 ABG pO2 ABG HCO3 ABG Base Excess ABG Hemoglobin Oxyhemoglobin Sodium Potassium Chloride Carbon Dioxide BUN Creatinine Glucose POC Glucose 131 H 183 H 236 H Lactic Acid Calcium Phosphorus Magnesium Direct Bilirubin AST ALT Alkaline Phosphatase Lactate Dehydrogenase Troponin T C-Reactive Protein Total Protein Albumin Prealbumin Triglycerides Cholesterol LDL Cholesterol Direct HDL Cholesterol Urine pH Urine WBC (Auto) Urine Creatinine Urine Total Protein Fluid Total Protein Vancomycin Trough Rheumatoid Factor Complement C4 Miscellaneous Test Crossmatch 09/20/16 09/21/16 09/21/16 23:51 03:30 04:44 WBC RBC Hgb Hct MCV MCH MCHC RDW Plt Count Lymph % (Auto) [place] % (Auto) Lymph # [place] # Baso # Seg Neutrophils % Seg Neuts % (Manual) Lymphocytes % (Manual) Monocytes % (Manual) Eosinophils % (Manual) Basophils % (Manual) Nucleated RBC % Seg Neutrophils # Seg Neutrophils # Man Lymphocytes # (Manual) Monocytes # (Manual) Eosinophils # (Manual) Basophils # (Manual) PT INR Fibrinogen dRVVT Confirm Interp Factor V Activity POC ABG pH POC ABG pCO2 POC ABG pO2 ABG pO2 ABG HCO3 ABG Base Excess ABG Hemoglobin Oxyhemoglobin Sodium Potassium Chloride Carbon Dioxide BUN Creatinine Glucose POC Glucose 114 H 141 H Lactic Acid Calcium Phosphorus Magnesium 2.70 H Direct Bilirubin AST ALT Alkaline Phosphatase Lactate Dehydrogenase Troponin T C-Reactive Protein Total Protein Albumin Prealbumin Triglycerides Cholesterol LDL Cholesterol Direct HDL Cholesterol Urine pH Urine WBC (Auto) Urine Creatinine Urine Total Protein Fluid Total Protein Vancomycin Trough Rheumatoid Factor Complement C4 Miscellaneous Test Crossmatch 09/21/16 09/21/16 09/21/16 07:45 07:45 10:01 WBC 13.8 H RBC 2.94 L Hgb 7.5 L Hct 23.5 L MCV MCH 26 L MCHC RDW 21.2 H Plt Count Lymph % (Auto) 6.9 L [place] % (Auto) 9.4 H Lymph # 0.9 L [place] # 1.3 H Baso # Seg Neutrophils % 83.2 H Seg Neuts % (Manual) Lymphocytes % (Manual) Monocytes % (Manual) Eosinophils % (Manual) Basophils % (Manual) Nucleated RBC % Seg Neutrophils # 11.5 H Seg Neutrophils # Man Lymphocytes # (Manual) Monocytes # (Manual) Eosinophils # (Manual) Basophils # (Manual) PT INR Fibrinogen dRVVT Confirm Interp Factor V Activity POC ABG pH 7.308 L POC ABG pCO2 31.9 L POC ABG pO2 148 H ABG pO2 ABG HCO3 ABG Base Excess ABG Hemoglobin Oxyhemoglobin Sodium 147 H Potassium Chloride 114.2 H Carbon Dioxide 15 L BUN 120 H Creatinine 3.9 H Glucose 156 H POC Glucose Lactic Acid Calcium 8.2 L Phosphorus Magnesium Direct Bilirubin AST ALT Alkaline Phosphatase Lactate Dehydrogenase Troponin T C-Reactive Protein Total Protein Albumin Prealbumin Triglycerides Cholesterol LDL Cholesterol Direct HDL Cholesterol Urine pH Urine WBC (Auto) Urine Creatinine Urine Total Protein Fluid Total Protein Vancomycin Trough Rheumatoid Factor Complement C4 Miscellaneous Test Crossmatch 09/21/16 09/21/16 09/21/16 12:00 12:03 13:00 WBC RBC Hgb Hct MCV MCH MCHC RDW Plt Count Lymph % (Auto) [place] % (Auto) Lymph # [place] # Baso # Seg Neutrophils % Seg Neuts % (Manual) Lymphocytes % (Manual) Monocytes % (Manual) Eosinophils % (Manual) Basophils % (Manual) Nucleated RBC % Seg Neutrophils # Seg Neutrophils # Man Lymphocytes # (Manual) Monocytes # (Manual) Eosinophils # (Manual) Basophils # (Manual) PT INR Fibrinogen dRVVT Confirm Interp Factor V Activity POC ABG pH POC ABG pCO2 POC ABG pO2 ABG pO2 ABG HCO3 ABG Base Excess ABG Hemoglobin Oxyhemoglobin Sodium Potassium Chloride Carbon Dioxide BUN Creatinine Glucose POC Glucose 163 H Lactic Acid Calcium Phosphorus Magnesium Direct Bilirubin AST ALT Alkaline Phosphatase Lactate Dehydrogenase Troponin T C-Reactive Protein Total Protein Albumin Prealbumin Triglycerides Cholesterol LDL Cholesterol Direct HDL Cholesterol Urine pH Urine WBC (Auto) Urine Creatinine 54.8 H Urine Total Protein Fluid Total Protein Vancomycin Trough 2.3 L Rheumatoid Factor Complement C4 Miscellaneous Test Crossmatch 09/21/16 09/21/16 09/22/16 16:51 23:17 06:27 WBC RBC Hgb Hct MCV MCH MCHC RDW Plt Count Lymph % (Auto) [place] % (Auto) Lymph # [place] # Baso # Seg Neutrophils % Seg Neuts % (Manual) Lymphocytes % (Manual) Monocytes % (Manual) Eosinophils % (Manual) Basophils % (Manual) Nucleated RBC % Seg Neutrophils # Seg Neutrophils # Man Lymphocytes # (Manual) Monocytes # (Manual) Eosinophils # (Manual) Basophils # (Manual) PT INR Fibrinogen dRVVT Confirm Interp Factor V Activity POC ABG pH POC ABG pCO2 POC ABG pO2 ABG pO2 ABG HCO3 ABG Base Excess ABG Hemoglobin Oxyhemoglobin Sodium Potassium Chloride Carbon Dioxide BUN Creatinine Glucose POC Glucose 206 H 114 H 115 H Lactic Acid Calcium Phosphorus Magnesium Direct Bilirubin AST ALT Alkaline Phosphatase Lactate Dehydrogenase Troponin T C-Reactive Protein Total Protein Albumin Prealbumin Triglycerides Cholesterol LDL Cholesterol Direct HDL Cholesterol Urine pH Urine WBC (Auto) Urine Creatinine Urine Total Protein Fluid Total Protein Vancomycin Trough Rheumatoid Factor Complement C4 Miscellaneous Test Crossmatch 09/22/16 09/22/16 09/22/16 07:50 07:50 12:00 WBC 17.8 H RBC 3.04 L Hgb 8.0 L Hct 24.7 L MCV MCH 26 L MCHC RDW 21.6 H Plt Count Lymph % (Auto) [place] % (Auto) Lymph # [place] # Baso # Seg Neutrophils % Seg Neuts % (Manual) Lymphocytes % (Manual) Monocytes % (Manual) Eosinophils % (Manual) Basophils % (Manual) Nucleated RBC % Seg Neutrophils # Seg Neutrophils # Man Lymphocytes # (Manual) Monocytes # (Manual) Eosinophils # (Manual) Basophils # (Manual) PT INR Fibrinogen dRVVT Confirm Interp Factor V Activity POC ABG pH POC ABG pCO2 POC ABG pO2 ABG pO2 ABG HCO3 ABG Base Excess ABG Hemoglobin Oxyhemoglobin Sodium 150 H Potassium Chloride 118.2 H Carbon Dioxide 14 L BUN 111 H Creatinine 3.7 H Glucose 157 H POC Glucose 183 H Lactic Acid Calcium Phosphorus Magnesium Direct Bilirubin AST ALT Alkaline Phosphatase Lactate Dehydrogenase Troponin T C-Reactive Protein Total Protein Albumin Prealbumin Triglycerides Cholesterol LDL Cholesterol Direct HDL Cholesterol Urine pH Urine WBC (Auto) Urine Creatinine Urine Total Protein Fluid Total Protein Vancomycin Trough Rheumatoid Factor Complement C4 Miscellaneous Test Crossmatch 09/22/16 09/22/16 09/23/16 17:29 23:10 05:00 WBC 19.2 H RBC 3.13 L Hgb 8.0 L Hct 25.2 L MCV MCH 26 L MCHC RDW 22.1 H Plt Count Lymph % (Auto) [place] % (Auto) Lymph # [place] # Baso # Seg Neutrophils % Seg Neuts % (Manual) 92.0 H Lymphocytes % (Manual) 3.0 L Monocytes % (Manual) Eosinophils % (Manual) Basophils % (Manual) Nucleated RBC % Seg Neutrophils # Seg Neutrophils # Man 17.7 H Lymphocytes # (Manual) 0.6 L Monocytes # (Manual) Eosinophils # (Manual) Basophils # (Manual) PT INR Fibrinogen dRVVT Confirm Interp Factor V Activity POC ABG pH POC ABG pCO2 POC ABG pO2 ABG pO2 ABG HCO3 ABG Base Excess ABG Hemoglobin Oxyhemoglobin Sodium Potassium Chloride Carbon Dioxide BUN Creatinine Glucose POC Glucose 197 H 169 H Lactic Acid Calcium Phosphorus Magnesium Direct Bilirubin AST ALT Alkaline Phosphatase Lactate Dehydrogenase Troponin T C-Reactive Protein Total Protein Albumin Prealbumin Triglycerides Cholesterol LDL Cholesterol Direct HDL Cholesterol Urine pH Urine WBC (Auto) Urine Creatinine Urine Total Protein Fluid Total Protein Vancomycin Trough Rheumatoid Factor Complement C4 Miscellaneous Test Crossmatch 09/23/16 09/23/16 09/23/16 05:00 05:00 05:10 WBC RBC Hgb Hct MCV MCH MCHC RDW Plt Count Lymph % (Auto) [place] % (Auto) Lymph # [place] # Baso # Seg Neutrophils % Seg Neuts % (Manual) Lymphocytes % (Manual) Monocytes % (Manual) Eosinophils % (Manual) Basophils % (Manual) Nucleated RBC % Seg Neutrophils # Seg Neutrophils # Man Lymphocytes # (Manual) Monocytes # (Manual) Eosinophils # (Manual) Basophils # (Manual) PT INR Fibrinogen dRVVT Confirm Interp Factor V Activity POC ABG pH POC ABG pCO2 POC ABG pO2 ABG pO2 ABG HCO3 ABG Base Excess ABG Hemoglobin Oxyhemoglobin Sodium 147 H Potassium 3.2 L Chloride 115.7 H Carbon Dioxide 13 L BUN 111 H Creatinine 3.8 H Glucose 194 H POC Glucose 188 H Lactic Acid Calcium 7.3 L D Phosphorus Magnesium Direct Bilirubin AST ALT Alkaline Phosphatase Lactate Dehydrogenase Troponin T C-Reactive Protein 3.20 H Total Protein Albumin Prealbumin Triglycerides Cholesterol LDL Cholesterol Direct HDL Cholesterol Urine pH Urine WBC (Auto) Urine Creatinine Urine Total Protein Fluid Total Protein Vancomycin Trough Rheumatoid Factor Complement C4 Miscellaneous Test Crossmatch 09/23/16 09/23/16 09/23/16 11:37 12:29 18:01 WBC RBC Hgb Hct MCV MCH MCHC RDW Plt Count Lymph % (Auto) [place] % (Auto) Lymph # [place] # Baso # Seg Neutrophils % Seg Neuts % (Manual) Lymphocytes % (Manual) Monocytes % (Manual) Eosinophils % (Manual) Basophils % (Manual) Nucleated RBC % Seg Neutrophils # Seg Neutrophils # Man Lymphocytes # (Manual) Monocytes # (Manual) Eosinophils # (Manual) Basophils # (Manual) PT INR Fibrinogen dRVVT Confirm Interp Factor V Activity POC ABG pH POC ABG pCO2 18.9 L POC ABG pO2 143 H ABG pO2 ABG HCO3 ABG Base Excess ABG Hemoglobin Oxyhemoglobin Sodium Potassium Chloride Carbon Dioxide BUN Creatinine Glucose POC Glucose 153 H 108 H Lactic Acid Calcium Phosphorus Magnesium Direct Bilirubin AST ALT Alkaline Phosphatase Lactate Dehydrogenase Troponin T C-Reactive Protein Total Protein Albumin Prealbumin Triglycerides Cholesterol LDL Cholesterol Direct HDL Cholesterol Urine pH Urine WBC (Auto) Urine Creatinine Urine Total Protein Fluid Total Protein Vancomycin Trough Rheumatoid Factor Complement C4 Miscellaneous Test Crossmatch 09/23/16 09/23/16 09/24/16 21:19 23:43 05:16 WBC RBC Hgb Hct MCV MCH MCHC RDW Plt Count Lymph % (Auto) [place] % (Auto) Lymph # [place] # Baso # Seg Neutrophils % Seg Neuts % (Manual) Lymphocytes % (Manual) Monocytes % (Manual) Eosinophils % (Manual) Basophils % (Manual) Nucleated RBC % Seg Neutrophils # Seg Neutrophils # Man Lymphocytes # (Manual) Monocytes # (Manual) Eosinophils # (Manual) Basophils # (Manual) PT INR Fibrinogen dRVVT Confirm Interp Factor V Activity POC ABG pH POC ABG pCO2 17.3 L POC ABG pO2 112 H ABG pO2 ABG HCO3 ABG Base Excess ABG Hemoglobin Oxyhemoglobin Sodium Potassium Chloride Carbon Dioxide BUN Creatinine Glucose POC Glucose 143 H 164 H Lactic Acid Calcium Phosphorus Magnesium Direct Bilirubin AST ALT Alkaline Phosphatase Lactate Dehydrogenase Troponin T C-Reactive Protein Total Protein Albumin Prealbumin Triglycerides Cholesterol LDL Cholesterol Direct HDL Cholesterol Urine pH Urine WBC (Auto) Urine Creatinine Urine Total Protein Fluid Total Protein Vancomycin Trough Rheumatoid Factor Complement C4 Miscellaneous Test Crossmatch 09/24/16 09/24/16 09/24/16 05:21 11:58 17:06 WBC RBC Hgb Hct MCV MCH MCHC RDW Plt Count Lymph % (Auto) [place] % (Auto) Lymph # [place] # Baso # Seg Neutrophils % Seg Neuts % (Manual) Lymphocytes % (Manual) Monocytes % (Manual) Eosinophils % (Manual) Basophils % (Manual) Nucleated RBC % Seg Neutrophils # Seg Neutrophils # Man Lymphocytes # (Manual) Monocytes # (Manual) Eosinophils # (Manual) Basophils # (Manual) PT INR Fibrinogen dRVVT Confirm Interp Factor V Activity POC ABG pH POC ABG pCO2 POC ABG pO2 ABG pO2 ABG HCO3 ABG Base Excess ABG Hemoglobin Oxyhemoglobin Sodium Potassium Chloride Carbon Dioxide 10 L BUN 103 H Creatinine 4.3 H Glucose 163 H POC Glucose 173 H 167 H Lactic Acid Calcium 6.5 L Phosphorus Magnesium Direct Bilirubin AST ALT Alkaline Phosphatase Lactate Dehydrogenase Troponin T C-Reactive Protein Total Protein Albumin Prealbumin Triglycerides Cholesterol LDL Cholesterol Direct HDL Cholesterol Urine pH Urine WBC (Auto) Urine Creatinine Urine Total Protein Fluid Total Protein Vancomycin Trough Rheumatoid Factor Complement C4 Miscellaneous Test Crossmatch 09/24/16 09/24/16 09/24/16 20:15 21:02 23:48 WBC RBC Hgb Hct MCV MCH MCHC RDW Plt Count Lymph % (Auto) [place] % (Auto) Lymph # [place] # Baso # Seg Neutrophils % Seg Neuts % (Manual) Lymphocytes % (Manual) Monocytes % (Manual) Eosinophils % (Manual) Basophils % (Manual) Nucleated RBC % Seg Neutrophils # Seg Neutrophils # Man Lymphocytes # (Manual) Monocytes # (Manual) Eosinophils # (Manual) Basophils # (Manual) PT INR Fibrinogen dRVVT Confirm Interp Factor V Activity POC ABG pH 7.288 L POC ABG pCO2 30.2 L 21.5 L POC ABG pO2 32 L 39 L ABG pO2 ABG HCO3 ABG Base Excess ABG Hemoglobin Oxyhemoglobin Sodium Potassium Chloride Carbon Dioxide BUN Creatinine Glucose POC Glucose 109 H Lactic Acid Calcium Phosphorus Magnesium Direct Bilirubin AST ALT Alkaline Phosphatase Lactate Dehydrogenase Troponin T C-Reactive Protein Total Protein Albumin Prealbumin Triglycerides Cholesterol LDL Cholesterol Direct HDL Cholesterol Urine pH Urine WBC (Auto) Urine Creatinine Urine Total Protein Fluid Total Protein Vancomycin Trough Rheumatoid Factor Complement C4 Miscellaneous Test Crossmatch 09/25/16 09/25/16 09/25/16 04:20 04:20 04:20 WBC RBC 2.58 L Hgb 7.0 L Hct 21.0 L MCV MCH 27 L MCHC RDW 23.8 H Plt Count Lymph % (Auto) [place] % (Auto) Lymph # [place] # Baso # Seg Neutrophils % Seg Neuts % (Manual) Lymphocytes % (Manual) 12.0 L Monocytes % (Manual) Eosinophils % (Manual) 7.0 H Basophils % (Manual) 2.0 H Nucleated RBC % Seg Neutrophils # Seg Neutrophils # Man Lymphocytes # (Manual) 0.9 L Monocytes # (Manual) Eosinophils # (Manual) 0.5 H Basophils # (Manual) PT INR Fibrinogen dRVVT Confirm Interp Factor V Activity POC ABG pH POC ABG pCO2 POC ABG pO2 ABG pO2 ABG HCO3 ABG Base Excess ABG Hemoglobin Oxyhemoglobin Sodium Potassium Chloride Carbon Dioxide 15 L BUN 72 H Creatinine 3.8 H Glucose POC Glucose Lactic Acid Calcium 6.0 L Phosphorus 4.60 H Magnesium 1.60 L Direct Bilirubin AST ALT Alkaline Phosphatase Lactate Dehydrogenase Troponin T C-Reactive Protein Total Protein Albumin Prealbumin Triglycerides Cholesterol LDL Cholesterol Direct HDL Cholesterol Urine pH Urine WBC (Auto) Urine Creatinine Urine Total Protein Fluid Total Protein Vancomycin Trough Rheumatoid Factor Complement C4 Miscellaneous Test Crossmatch 09/25/16 09/25/16 09/25/16 04:57 08:02 10:30 WBC RBC Hgb Hct MCV MCH MCHC RDW Plt Count Lymph % (Auto) [place] % (Auto) Lymph # [place] # Baso # Seg Neutrophils % Seg Neuts % (Manual) Lymphocytes % (Manual) Monocytes % (Manual) Eosinophils % (Manual) Basophils % (Manual) Nucleated RBC % Seg Neutrophils # Seg Neutrophils # Man Lymphocytes # (Manual) Monocytes # (Manual) Eosinophils # (Manual) Basophils # (Manual) PT INR Fibrinogen dRVVT Confirm Interp Factor V Activity POC ABG pH POC ABG pCO2 24.7 L POC ABG pO2 152 H ABG pO2 ABG HCO3 ABG Base Excess ABG Hemoglobin Oxyhemoglobin Sodium Potassium Chloride Carbon Dioxide BUN Creatinine Glucose POC Glucose 113 H Lactic Acid Calcium Phosphorus Magnesium Direct Bilirubin AST ALT Alkaline Phosphatase Lactate Dehydrogenase Troponin T C-Reactive Protein Total Protein Albumin Prealbumin Triglycerides Cholesterol LDL Cholesterol Direct HDL Cholesterol Urine pH Urine WBC (Auto) Urine Creatinine Urine Total Protein Fluid Total Protein Vancomycin Trough Rheumatoid Factor Complement C4 Miscellaneous Test Crossmatch See Detail 09/25/16 09/25/16 09/25/16 12:05 17:44 23:47 WBC RBC Hgb Hct MCV MCH MCHC RDW Plt Count Lymph % (Auto) [place] % (Auto) Lymph # [place] # Baso # Seg Neutrophils % Seg Neuts % (Manual) Lymphocytes % (Manual) Monocytes % (Manual) Eosinophils % (Manual) Basophils % (Manual) Nucleated RBC % Seg Neutrophils # Seg Neutrophils # Man Lymphocytes # (Manual) Monocytes # (Manual) Eosinophils # (Manual) Basophils # (Manual) PT INR Fibrinogen dRVVT Confirm Interp Factor V Activity POC ABG pH POC ABG pCO2 POC ABG pO2 ABG pO2 ABG HCO3 ABG Base Excess ABG Hemoglobin Oxyhemoglobin Sodium Potassium Chloride Carbon Dioxide BUN Creatinine Glucose POC Glucose 117 H 119 H 150 H Lactic Acid Calcium Phosphorus Magnesium Direct Bilirubin AST ALT Alkaline Phosphatase Lactate Dehydrogenase Troponin T C-Reactive Protein Total Protein Albumin Prealbumin Triglycerides Cholesterol LDL Cholesterol Direct HDL Cholesterol Urine pH Urine WBC (Auto) Urine Creatinine Urine Total Protein Fluid Total Protein Vancomycin Trough Rheumatoid Factor Complement C4 Miscellaneous Test Crossmatch 09/26/16 09/26/16 09/26/16 04:25 04:25 04:25 WBC RBC 2.65 L Hgb 7.4 L Hct 21.6 L MCV MCH MCHC RDW 22.5 H Plt Count Lymph % (Auto) [place] % (Auto) Lymph # [place] # Baso # Seg Neutrophils % Seg Neuts % (Manual) Lymphocytes % (Manual) 6.0 L Monocytes % (Manual) Eosinophils % (Manual) 11.0 H Basophils % (Manual) Nucleated RBC % Seg Neutrophils # Seg Neutrophils # Man Lymphocytes # (Manual) 0.4 L Monocytes # (Manual) Eosinophils # (Manual) 0.6 H Basophils # (Manual) PT INR Fibrinogen dRVVT Confirm Interp Factor V Activity POC ABG pH POC ABG pCO2 POC ABG pO2 ABG pO2 ABG HCO3 ABG Base Excess ABG Hemoglobin Oxyhemoglobin Sodium Potassium Chloride 97.0 L Carbon Dioxide 19 L BUN 43 H Creatinine 2.6 H Glucose 130 H POC Glucose Lactic Acid 4.40 H* Calcium 6.7 L Phosphorus Magnesium Direct Bilirubin AST ALT Alkaline Phosphatase Lactate Dehydrogenase Troponin T C-Reactive Protein Total Protein Albumin Prealbumin Triglycerides Cholesterol LDL Cholesterol Direct HDL Cholesterol Urine pH Urine WBC (Auto) Urine Creatinine Urine Total Protein Fluid Total Protein Vancomycin Trough Rheumatoid Factor Complement C4 Miscellaneous Test Crossmatch 09/26/16 09/26/16 09/26/16 05:20 11:44 12:12 WBC RBC Hgb Hct MCV MCH MCHC RDW Plt Count Lymph % (Auto) [place] % (Auto) Lymph # [place] # Baso # Seg Neutrophils % Seg Neuts % (Manual) Lymphocytes % (Manual) Monocytes % (Manual) Eosinophils % (Manual) Basophils % (Manual) Nucleated RBC % Seg Neutrophils # Seg Neutrophils # Man Lymphocytes # (Manual) Monocytes # (Manual) Eosinophils # (Manual) Basophils # (Manual) PT INR Fibrinogen dRVVT Confirm Interp Factor V Activity POC ABG pH POC ABG pCO2 27.0 L POC ABG pO2 69 L ABG pO2 ABG HCO3 ABG Base Excess ABG Hemoglobin Oxyhemoglobin Sodium Potassium Chloride Carbon Dioxide BUN Creatinine Glucose POC Glucose 121 H 128 H Lactic Acid Calcium Phosphorus Magnesium Direct Bilirubin AST ALT Alkaline Phosphatase Lactate Dehydrogenase Troponin T C-Reactive Protein Total Protein Albumin Prealbumin Triglycerides Cholesterol LDL Cholesterol Direct HDL Cholesterol Urine pH Urine WBC (Auto) Urine Creatinine Urine Total Protein Fluid Total Protein Vancomycin Trough Rheumatoid Factor Complement C4 Miscellaneous Test Crossmatch 09/26/16 09/26/16 09/27/16 18:31 23:40 08:20 WBC RBC Hgb Hct MCV MCH MCHC RDW Plt Count Lymph % (Auto) [place] % (Auto) Lymph # [place] # Baso # Seg Neutrophils % Seg Neuts % (Manual) Lymphocytes % (Manual) Monocytes % (Manual) Eosinophils % (Manual) Basophils % (Manual) Nucleated RBC % Seg Neutrophils # Seg Neutrophils # Man Lymphocytes # (Manual) Monocytes # (Manual) Eosinophils # (Manual) Basophils # (Manual) PT INR Fibrinogen dRVVT Confirm Interp Factor V Activity POC ABG pH POC ABG pCO2 POC ABG pO2 ABG pO2 ABG HCO3 ABG Base Excess ABG Hemoglobin Oxyhemoglobin Sodium Potassium Chloride Carbon Dioxide BUN Creatinine Glucose POC Glucose 120 H 133 H Lactic Acid 4.10 H* Calcium Phosphorus Magnesium Direct Bilirubin AST ALT Alkaline Phosphatase Lactate Dehydrogenase Troponin T C-Reactive Protein Total Protein Albumin Prealbumin Triglycerides Cholesterol LDL Cholesterol Direct HDL Cholesterol Urine pH Urine WBC (Auto) Urine Creatinine Urine Total Protein Fluid Total Protein Vancomycin Trough Rheumatoid Factor Complement C4 Miscellaneous Test Crossmatch 09/27/16 09/27/16 09/27/16 11:23 15:00 18:15 WBC RBC Hgb Hct MCV MCH MCHC RDW Plt Count Lymph % (Auto) [place] % (Auto) Lymph # [place] # Baso # Seg Neutrophils % Seg Neuts % (Manual) Lymphocytes % (Manual) Monocytes % (Manual) Eosinophils % (Manual) Basophils % (Manual) Nucleated RBC % Seg Neutrophils # Seg Neutrophils # Man Lymphocytes # (Manual) Monocytes # (Manual) Eosinophils # (Manual) Basophils # (Manual) PT INR Fibrinogen dRVVT Confirm Interp Factor V Activity POC ABG pH 7.459 H POC ABG pCO2 27.1 L POC ABG pO2 140 H ABG pO2 ABG HCO3 ABG Base Excess ABG Hemoglobin Oxyhemoglobin Sodium Potassium Chloride Carbon Dioxide BUN Creatinine Glucose POC Glucose 114 H 127 H Lactic Acid Calcium Phosphorus Magnesium Direct Bilirubin AST ALT Alkaline Phosphatase Lactate Dehydrogenase Troponin T C-Reactive Protein Total Protein Albumin Prealbumin Triglycerides Cholesterol LDL Cholesterol Direct HDL Cholesterol Urine pH Urine WBC (Auto) Urine Creatinine Urine Total Protein Fluid Total Protein Vancomycin Trough Rheumatoid Factor Complement C4 Miscellaneous Test Crossmatch 09/27/16 09/27/16 09/28/16 Unknown Unknown 03:45 WBC RBC 2.49 L Hgb 6.8 L Hct 20.7 L MCV MCH 27 L MCHC RDW 22.1 H Plt Count Lymph % (Auto) [place] % (Auto) Lymph # [place] # Baso # Seg Neutrophils % Seg Neuts % (Manual) 32.0 L Lymphocytes % (Manual) 12.0 L Monocytes % (Manual) 11.0 H Eosinophils % (Manual) 10.0 H Basophils % (Manual) Nucleated RBC % Seg Neutrophils # Seg Neutrophils # Man Lymphocytes # (Manual) 1.0 L Monocytes # (Manual) 0.9 H Eosinophils # (Manual) 0.8 H Basophils # (Manual) PT INR Fibrinogen dRVVT Confirm Interp Factor V Activity POC ABG pH POC ABG pCO2 POC ABG pO2 ABG pO2 ABG HCO3 ABG Base Excess ABG Hemoglobin Oxyhemoglobin Sodium 135 L 135 L Potassium 3.5 L Chloride 93.6 L 94.4 L Carbon Dioxide 17 L 21 L BUN 45 H 28 H Creatinine 3.3 H 2.5 H Glucose 106 H POC Glucose Lactic Acid Calcium 7.3 L 7.1 L Phosphorus Magnesium Direct Bilirubin AST ALT Alkaline Phosphatase Lactate Dehydrogenase Troponin T C-Reactive Protein Total Protein Albumin Prealbumin Triglycerides Cholesterol LDL Cholesterol Direct HDL Cholesterol Urine pH Urine WBC (Auto) Urine Creatinine Urine Total Protein Fluid Total Protein Vancomycin Trough Rheumatoid Factor Complement C4 Miscellaneous Test Crossmatch 09/28/16 09/28/16 09/28/16 03:45 07:25 11:58 WBC 13.3 H RBC 3.01 L Hgb 8.4 L Hct 25.0 L MCV MCH MCHC RDW 20.5 H Plt Count 128 L Lymph % (Auto) [place] % (Auto) Lymph # [place] # Baso # Seg Neutrophils % Seg Neuts % (Manual) Lymphocytes % (Manual) 7.0 L Monocytes % (Manual) Eosinophils % (Manual) 6.0 H Basophils % (Manual) Nucleated RBC % Seg Neutrophils # Seg Neutrophils # Man Lymphocytes # (Manual) 0.9 L Monocytes # (Manual) Eosinophils # (Manual) 0.8 H Basophils # (Manual) PT INR Fibrinogen dRVVT Confirm Interp Factor V Activity POC ABG pH POC ABG pCO2 POC ABG pO2 ABG pO2 ABG HCO3 ABG Base Excess ABG Hemoglobin Oxyhemoglobin Sodium Potassium Chloride Carbon Dioxide BUN Creatinine Glucose POC Glucose 121 H Lactic Acid 4.50 H* Calcium Phosphorus Magnesium Direct Bilirubin AST ALT Alkaline Phosphatase Lactate Dehydrogenase Troponin T C-Reactive Protein Total Protein Albumin Prealbumin Triglycerides Cholesterol LDL Cholesterol Direct HDL Cholesterol Urine pH Urine WBC (Auto) Urine Creatinine Urine Total Protein Fluid Total Protein Vancomycin Trough Rheumatoid Factor Complement C4 Miscellaneous Test Crossmatch 09/29/16 09/29/16 09/29/16 06:45 06:45 06:45 WBC 14.9 H RBC 2.74 L Hgb 7.6 L Hct 23.2 L MCV MCH MCHC RDW 20.5 H Plt Count 81 L Lymph % (Auto) [place] % (Auto) Lymph # [place] # Baso # Seg Neutrophils % Seg Neuts % (Manual) 81.0 H Lymphocytes % (Manual) 4.0 L Monocytes % (Manual) Eosinophils % (Manual) Basophils % (Manual) Nucleated RBC % Seg Neutrophils # Seg Neutrophils # Man 12.1 H Lymphocytes # (Manual) 0.6 L Monocytes # (Manual) Eosinophils # (Manual) Basophils # (Manual) PT INR Fibrinogen dRVVT Confirm Interp Factor V Activity POC ABG pH POC ABG pCO2 POC ABG pO2 ABG pO2 ABG HCO3 ABG Base Excess ABG Hemoglobin Oxyhemoglobin Sodium 133 L Potassium 3.4 L Chloride 92.5 L Carbon Dioxide 21 L BUN 33 H Creatinine 3.0 H Glucose POC Glucose Lactic Acid Calcium 6.6 L Phosphorus Magnesium 1.40 L Direct Bilirubin 0.9 H AST ALT Alkaline Phosphatase Lactate Dehydrogenase Troponin T C-Reactive Protein Total Protein 4.3 L Albumin 1.3 L Prealbumin Triglycerides Cholesterol LDL Cholesterol Direct HDL Cholesterol Urine pH Urine WBC (Auto) Urine Creatinine Urine Total Protein Fluid Total Protein Vancomycin Trough Rheumatoid Factor Complement C4 Miscellaneous Test Crossmatch 09/29/16 09/29/16 09/30/16 17:52 20:12 00:07 WBC RBC Hgb Hct MCV MCH MCHC RDW Plt Count Lymph % (Auto) [place] % (Auto) Lymph # [place] # Baso # Seg Neutrophils % Seg Neuts % (Manual) Lymphocytes % (Manual) Monocytes % (Manual) Eosinophils % (Manual) Basophils % (Manual) Nucleated RBC % Seg Neutrophils # Seg Neutrophils # Man Lymphocytes # (Manual) Monocytes # (Manual) Eosinophils # (Manual) Basophils # (Manual) PT INR Fibrinogen dRVVT Confirm Interp Factor V Activity POC ABG pH POC ABG pCO2 POC ABG pO2 ABG pO2 ABG HCO3 ABG Base Excess ABG Hemoglobin Oxyhemoglobin Sodium Potassium Chloride Carbon Dioxide BUN Creatinine Glucose POC Glucose 50 L 51 L Lactic Acid Calcium Phosphorus Magnesium Direct Bilirubin AST ALT Alkaline Phosphatase Lactate Dehydrogenase Troponin T 0.204 H* C-Reactive Protein Total Protein Albumin Prealbumin Triglycerides Cholesterol 31 L LDL Cholesterol Direct 4 L HDL Cholesterol 3 L Urine pH Urine WBC (Auto) Urine Creatinine Urine Total Protein Fluid Total Protein Vancomycin Trough Rheumatoid Factor Complement C4 Miscellaneous Test Crossmatch 09/30/16 09/30/16 09/30/16 01:30 05:15 06:10 WBC RBC Hgb Hct MCV MCH MCHC RDW Plt Count Lymph % (Auto) [place] % (Auto) Lymph # [place] # Baso # Seg Neutrophils % Seg Neuts % (Manual) Lymphocytes % (Manual) Monocytes % (Manual) Eosinophils % (Manual) Basophils % (Manual) Nucleated RBC % Seg Neutrophils # Seg Neutrophils # Man Lymphocytes # (Manual) Monocytes # (Manual) Eosinophils # (Manual) Basophils # (Manual) PT INR Fibrinogen dRVVT Confirm Interp Factor V Activity POC ABG pH POC ABG pCO2 POC ABG pO2 ABG pO2 ABG HCO3 ABG Base Excess ABG Hemoglobin Oxyhemoglobin Sodium 133 L Potassium 3.2 L Chloride 93.2 L Carbon Dioxide 19 L BUN 36 H Creatinine 3.2 H Glucose 104 H POC Glucose 167 H 146 H Lactic Acid Calcium 6.4 L Phosphorus Magnesium 1.60 L Direct Bilirubin AST ALT Alkaline Phosphatase Lactate Dehydrogenase Troponin T C-Reactive Protein Total Protein Albumin Prealbumin Triglycerides Cholesterol LDL Cholesterol Direct HDL Cholesterol Urine pH Urine WBC (Auto) Urine Creatinine Urine Total Protein Fluid Total Protein Vancomycin Trough Rheumatoid Factor Complement C4 Miscellaneous Test Crossmatch 09/30/16 09/30/16 09/30/16 11:26 13:39 18:38 WBC RBC Hgb Hct MCV MCH MCHC RDW Plt Count Lymph % (Auto) [place] % (Auto) Lymph # [place] # Baso # Seg Neutrophils % Seg Neuts % (Manual) Lymphocytes % (Manual) Monocytes % (Manual) Eosinophils % (Manual) Basophils % (Manual) Nucleated RBC % Seg Neutrophils # Seg Neutrophils # Man Lymphocytes # (Manual) Monocytes # (Manual) Eosinophils # (Manual) Basophils # (Manual) PT INR Fibrinogen dRVVT Confirm Interp Factor V Activity POC ABG pH 7.479 H POC ABG pCO2 29.8 L POC ABG pO2 117 H ABG pO2 ABG HCO3 ABG Base Excess ABG Hemoglobin Oxyhemoglobin Sodium Potassium Chloride Carbon Dioxide BUN Creatinine Glucose POC Glucose 140 H 122 H Lactic Acid Calcium Phosphorus Magnesium Direct Bilirubin AST ALT Alkaline Phosphatase Lactate Dehydrogenase Troponin T C-Reactive Protein Total Protein Albumin Prealbumin Triglycerides Cholesterol LDL Cholesterol Direct HDL Cholesterol Urine pH Urine WBC (Auto) Urine Creatinine Urine Total Protein Fluid Total Protein Vancomycin Trough Rheumatoid Factor Complement C4 Miscellaneous Test Crossmatch 10/01/16 10/01/16 10/01/16 06:00 06:00 12:37 WBC 12.6 H RBC 2.75 L Hgb 7.3 L Hct 23.3 L MCV MCH 27 L MCHC RDW 20.6 H Plt Count 72 L Lymph % (Auto) [place] % (Auto) Lymph # [place] # Baso # Seg Neutrophils % Seg Neuts % (Manual) 31.0 L Lymphocytes % (Manual) 8.0 L Monocytes % (Manual) Eosinophils % (Manual) Basophils % (Manual) Nucleated RBC % 3.0 H Seg Neutrophils # Seg Neutrophils # Man Lymphocytes # (Manual) 1.0 L Monocytes # (Manual) Eosinophils # (Manual) Basophils # (Manual) PT INR Fibrinogen dRVVT Confirm Interp Factor V Activity POC ABG pH POC ABG pCO2 POC ABG pO2 ABG pO2 ABG HCO3 ABG Base Excess ABG Hemoglobin Oxyhemoglobin Sodium 127 L Potassium Chloride 86.8 L Carbon Dioxide 20 L BUN 42 H Creatinine 3.5 H Glucose POC Glucose 65 L Lactic Acid Calcium 7.0 L Phosphorus Magnesium Direct Bilirubin AST ALT Alkaline Phosphatase Lactate Dehydrogenase Troponin T C-Reactive Protein Total Protein Albumin Prealbumin Triglycerides Cholesterol LDL Cholesterol Direct HDL Cholesterol Urine pH Urine WBC (Auto) Urine Creatinine Urine Total Protein Fluid Total Protein Vancomycin Trough Rheumatoid Factor Complement C4 Miscellaneous Test Crossmatch 10/01/16 10/01/16 10/02/16 17:39 23:32 00:59 WBC RBC Hgb Hct MCV MCH MCHC RDW Plt Count Lymph % (Auto) [place] % (Auto) Lymph # [place] # Baso # Seg Neutrophils % Seg Neuts % (Manual) Lymphocytes % (Manual) Monocytes % (Manual) Eosinophils % (Manual) Basophils % (Manual) Nucleated RBC % Seg Neutrophils # Seg Neutrophils # Man Lymphocytes # (Manual) Monocytes # (Manual) Eosinophils # (Manual) Basophils # (Manual) PT INR Fibrinogen dRVVT Confirm Interp Factor V Activity POC ABG pH POC ABG pCO2 POC ABG pO2 ABG pO2 ABG HCO3 ABG Base Excess ABG Hemoglobin Oxyhemoglobin Sodium Potassium Chloride Carbon Dioxide BUN Creatinine Glucose POC Glucose 107 H 52 L 145 H Lactic Acid Calcium Phosphorus Magnesium Direct Bilirubin AST ALT Alkaline Phosphatase Lactate Dehydrogenase Troponin T C-Reactive Protein Total Protein Albumin Prealbumin Triglycerides Cholesterol LDL Cholesterol Direct HDL Cholesterol Urine pH Urine WBC (Auto) Urine Creatinine Urine Total Protein Fluid Total Protein Vancomycin Trough Rheumatoid Factor Complement C4 Miscellaneous Test Crossmatch 10/02/16 10/02/16 10/02/16 10:30 10:50 10:50 WBC 14.7 H RBC 2.76 L Hgb 7.4 L Hct 23.6 L MCV MCH 27 L MCHC RDW 20.2 H Plt Count 79 L Lymph % (Auto) [place] % (Auto) Lymph # [place] # Baso # Seg Neutrophils % Seg Neuts % (Manual) 86.0 H Lymphocytes % (Manual) 6.0 L Monocytes % (Manual) Eosinophils % (Manual) Basophils % (Manual) Nucleated RBC % Seg Neutrophils # Seg Neutrophils # Man 12.6 H Lymphocytes # (Manual) 0.9 L Monocytes # (Manual) Eosinophils # (Manual) Basophils # (Manual) PT INR Fibrinogen dRVVT Confirm Interp Factor V Activity POC ABG pH 7.486 H POC ABG pCO2 30.1 L POC ABG pO2 108 H ABG pO2 ABG HCO3 ABG Base Excess ABG Hemoglobin Oxyhemoglobin Sodium 131 L Potassium 3.4 L Chloride 89.9 L Carbon Dioxide BUN 26 H Creatinine 2.6 H Glucose POC Glucose Lactic Acid Calcium 7.0 L Phosphorus Magnesium Direct Bilirubin AST ALT Alkaline Phosphatase Lactate Dehydrogenase Troponin T C-Reactive Protein Total Protein Albumin Prealbumin Triglycerides Cholesterol LDL Cholesterol Direct HDL Cholesterol Urine pH Urine WBC (Auto) Urine Creatinine Urine Total Protein Fluid Total Protein Vancomycin Trough Rheumatoid Factor Complement C4 Miscellaneous Test Crossmatch 10/02/16 10/03/16 10/03/16 23:45 00:45 05:10 WBC 12.9 H RBC 2.77 L Hgb 7.6 L Hct 23.7 L MCV MCH 27 L MCHC RDW 19.7 H Plt Count 89 L Lymph % (Auto) [place] % (Auto) Lymph # [place] # Baso # Seg Neutrophils % Seg Neuts % (Manual) Lymphocytes % (Manual) 8.0 L Monocytes % (Manual) Eosinophils % (Manual) Basophils % (Manual) Nucleated RBC % Seg Neutrophils # 11.9 H Seg Neutrophils # Man Lymphocytes # (Manual) 1.0 L Monocytes # (Manual) Eosinophils # (Manual) Basophils # (Manual) PT INR Fibrinogen dRVVT Confirm Interp Factor V Activity POC ABG pH POC ABG pCO2 POC ABG pO2 ABG pO2 ABG HCO3 ABG Base Excess ABG Hemoglobin Oxyhemoglobin Sodium Potassium Chloride Carbon Dioxide BUN Creatinine Glucose POC Glucose 55 L 199 H Lactic Acid Calcium Phosphorus Magnesium Direct Bilirubin AST ALT Alkaline Phosphatase Lactate Dehydrogenase Troponin T C-Reactive Protein Total Protein Albumin Prealbumin Triglycerides Cholesterol LDL Cholesterol Direct HDL Cholesterol Urine pH Urine WBC (Auto) Urine Creatinine Urine Total Protein Fluid Total Protein Vancomycin Trough Rheumatoid Factor Complement C4 Miscellaneous Test Crossmatch 10/03/16 10/03/16 10/03/16 05:10 12:14 13:18 WBC RBC Hgb Hct MCV MCH MCHC RDW Plt Count Lymph % (Auto) [place] % (Auto) Lymph # [place] # Baso # Seg Neutrophils % Seg Neuts % (Manual) Lymphocytes % (Manual) Monocytes % (Manual) Eosinophils % (Manual) Basophils % (Manual) Nucleated RBC % Seg Neutrophils # Seg Neutrophils # Man Lymphocytes # (Manual) Monocytes # (Manual) Eosinophils # (Manual) Basophils # (Manual) PT INR Fibrinogen dRVVT Confirm Interp Factor V Activity POC ABG pH POC ABG pCO2 POC ABG pO2 ABG pO2 ABG HCO3 ABG Base Excess ABG Hemoglobin Oxyhemoglobin Sodium 129 L Potassium 3.3 L Chloride 88.8 L Carbon Dioxide 20 L BUN 29 H Creatinine 2.8 H Glucose POC Glucose 68 L 127 H Lactic Acid Calcium 7.2 L Phosphorus Magnesium Direct Bilirubin AST ALT Alkaline Phosphatase Lactate Dehydrogenase Troponin T C-Reactive Protein Total Protein Albumin Prealbumin Triglycerides Cholesterol LDL Cholesterol Direct HDL Cholesterol Urine pH Urine WBC (Auto) Urine Creatinine Urine Total Protein Fluid Total Protein Vancomycin Trough Rheumatoid Factor Complement C4 Miscellaneous Test Crossmatch 10/03/16 10/03/16 10/03/16 14:42 18:21 19:09 WBC RBC Hgb Hct MCV MCH MCHC RDW Plt Count Lymph % (Auto) [place] % (Auto) Lymph # [place] # Baso # Seg Neutrophils % Seg Neuts % (Manual) Lymphocytes % (Manual) Monocytes % (Manual) Eosinophils % (Manual) Basophils % (Manual) Nucleated RBC % Seg Neutrophils # Seg Neutrophils # Man Lymphocytes # (Manual) Monocytes # (Manual) Eosinophils # (Manual) Basophils # (Manual) PT INR Fibrinogen dRVVT Confirm Interp Factor V Activity POC ABG pH 7.499 H POC ABG pCO2 28.4 L POC ABG pO2 44 L ABG pO2 ABG HCO3 ABG Base Excess ABG Hemoglobin Oxyhemoglobin Sodium Potassium Chloride Carbon Dioxide BUN Creatinine Glucose POC Glucose 64 L 205 H Lactic Acid Calcium Phosphorus Magnesium Direct Bilirubin AST ALT Alkaline Phosphatase Lactate Dehydrogenase Troponin T C-Reactive Protein Total Protein Albumin Prealbumin Triglycerides Cholesterol LDL Cholesterol Direct HDL Cholesterol Urine pH Urine WBC (Auto) Urine Creatinine Urine Total Protein Fluid Total Protein Vancomycin Trough Rheumatoid Factor Complement C4 Miscellaneous Test Crossmatch 10/03/16 10/04/16 10/04/16 23:33 04:18 06:30 WBC RBC 2.54 L Hgb 7.1 L Hct 21.7 L MCV MCH MCHC RDW 19.5 H Plt Count 76 L Lymph % (Auto) [place] % (Auto) Lymph # [place] # Baso # Seg Neutrophils % Seg Neuts % (Manual) 88.0 H Lymphocytes % (Manual) 6.0 L Monocytes % (Manual) Eosinophils % (Manual) Basophils % (Manual) Nucleated RBC % Seg Neutrophils # Seg Neutrophils # Man 8.8 H Lymphocytes # (Manual) 0.6 L Monocytes # (Manual) Eosinophils # (Manual) Basophils # (Manual) PT INR Fibrinogen dRVVT Confirm Interp Factor V Activity POC ABG pH 7.461 H POC ABG pCO2 33.6 L POC ABG pO2 211 H ABG pO2 ABG HCO3 ABG Base Excess ABG Hemoglobin Oxyhemoglobin Sodium Potassium Chloride Carbon Dioxide BUN Creatinine Glucose POC Glucose 136 H Lactic Acid Calcium Phosphorus Magnesium Direct Bilirubin AST ALT Alkaline Phosphatase Lactate Dehydrogenase Troponin T C-Reactive Protein Total Protein Albumin Prealbumin Triglycerides Cholesterol LDL Cholesterol Direct HDL Cholesterol Urine pH Urine WBC (Auto) Urine Creatinine Urine Total Protein Fluid Total Protein Vancomycin Trough Rheumatoid Factor Complement C4 Miscellaneous Test Crossmatch 10/04/16 10/04/16 10/04/16 06:30 11:45 17:54 WBC RBC Hgb Hct MCV MCH MCHC RDW Plt Count Lymph % (Auto) [place] % (Auto) Lymph # [place] # Baso # Seg Neutrophils % Seg Neuts % (Manual) Lymphocytes % (Manual) Monocytes % (Manual) Eosinophils % (Manual) Basophils % (Manual) Nucleated RBC % Seg Neutrophils # Seg Neutrophils # Man Lymphocytes # (Manual) Monocytes # (Manual) Eosinophils # (Manual) Basophils # (Manual) PT INR Fibrinogen dRVVT Confirm Interp Factor V Activity POC ABG pH POC ABG pCO2 POC ABG pO2 ABG pO2 ABG HCO3 ABG Base Excess ABG Hemoglobin Oxyhemoglobin Sodium 128 L Potassium Chloride 87.4 L Carbon Dioxide 20 L BUN 34 H Creatinine 2.9 H Glucose 127 H POC Glucose 158 H 160 H Lactic Acid Calcium 7.4 L Phosphorus Magnesium Direct Bilirubin AST ALT Alkaline Phosphatase Lactate Dehydrogenase Troponin T C-Reactive Protein Total Protein Albumin Prealbumin Triglycerides Cholesterol LDL Cholesterol Direct HDL Cholesterol Urine pH Urine WBC (Auto) Urine Creatinine Urine Total Protein Fluid Total Protein Vancomycin Trough Rheumatoid Factor Complement C4 Miscellaneous Test Crossmatch 10/04/16 10/05/16 10/05/16 23:25 04:30 05:00 WBC RBC 2.64 L Hgb 7.5 L Hct 22.6 L MCV MCH MCHC RDW 19.3 H Plt Count 80 L Lymph % (Auto) [place] % (Auto) Lymph # [place] # Baso # Seg Neutrophils % Seg Neuts % (Manual) Lymphocytes % (Manual) 12.0 L Monocytes % (Manual) Eosinophils % (Manual) Basophils % (Manual) Nucleated RBC % Seg Neutrophils # Seg Neutrophils # Man Lymphocytes # (Manual) Monocytes # (Manual) Eosinophils # (Manual) Basophils # (Manual) PT INR Fibrinogen dRVVT Confirm Interp Factor V Activity POC ABG pH 7.475 H POC ABG pCO2 33.3 L POC ABG pO2 140 H ABG pO2 ABG HCO3 ABG Base Excess ABG Hemoglobin Oxyhemoglobin Sodium Potassium Chloride Carbon Dioxide BUN Creatinine Glucose POC Glucose 141 H Lactic Acid Calcium Phosphorus Magnesium Direct Bilirubin AST ALT Alkaline Phosphatase Lactate Dehydrogenase Troponin T C-Reactive Protein Total Protein Albumin Prealbumin Triglycerides Cholesterol LDL Cholesterol Direct HDL Cholesterol Urine pH Urine WBC (Auto) Urine Creatinine Urine Total Protein Fluid Total Protein Vancomycin Trough Rheumatoid Factor Complement C4 Miscellaneous Test Crossmatch 10/05/16 10/05/16 10/05/16 05:00 05:09 12:58 WBC RBC Hgb Hct MCV MCH MCHC RDW Plt Count Lymph % (Auto) [place] % (Auto) Lymph # [place] # Baso # Seg Neutrophils % Seg Neuts % (Manual) Lymphocytes % (Manual) Monocytes % (Manual) Eosinophils % (Manual) Basophils % (Manual) Nucleated RBC % Seg Neutrophils # Seg Neutrophils # Man Lymphocytes # (Manual) Monocytes # (Manual) Eosinophils # (Manual) Basophils # (Manual) PT INR Fibrinogen dRVVT Confirm Interp Factor V Activity POC ABG pH POC ABG pCO2 POC ABG pO2 ABG pO2 ABG HCO3 ABG Base Excess ABG Hemoglobin Oxyhemoglobin Sodium 131 L Potassium Chloride 94.0 L Carbon Dioxide 20 L BUN 22 H Creatinine 2.0 H Glucose 123 H POC Glucose 166 H 179 H Lactic Acid Calcium 7.7 L Phosphorus 2.20 L D Magnesium Direct Bilirubin AST ALT Alkaline Phosphatase Lactate Dehydrogenase Troponin T C-Reactive Protein Total Protein Albumin Prealbumin Triglycerides Cholesterol LDL Cholesterol Direct HDL Cholesterol Urine pH Urine WBC (Auto) Urine Creatinine Urine Total Protein Fluid Total Protein Vancomycin Trough Rheumatoid Factor Complement C4 Miscellaneous Test Crossmatch 10/05/16 10/05/16 10/05/16 15:50 18:53 23:12 WBC RBC Hgb Hct MCV MCH MCHC RDW Plt Count Lymph % (Auto) [place] % (Auto) Lymph # [place] # Baso # Seg Neutrophils % Seg Neuts % (Manual) Lymphocytes % (Manual) Monocytes % (Manual) Eosinophils % (Manual) Basophils % (Manual) Nucleated RBC % Seg Neutrophils # Seg Neutrophils # Man Lymphocytes # (Manual) Monocytes # (Manual) Eosinophils # (Manual) Basophils # (Manual) PT INR Fibrinogen dRVVT Confirm Interp Factor V Activity POC ABG pH POC ABG pCO2 POC ABG pO2 ABG pO2 ABG HCO3 ABG Base Excess ABG Hemoglobin Oxyhemoglobin Sodium Potassium Chloride Carbon Dioxide BUN Creatinine Glucose POC Glucose 150 H 164 H Lactic Acid Calcium Phosphorus Magnesium Direct Bilirubin AST ALT Alkaline Phosphatase Lactate Dehydrogenase Troponin T C-Reactive Protein Total Protein Albumin Prealbumin Triglycerides Cholesterol LDL Cholesterol Direct HDL Cholesterol Urine pH Urine WBC (Auto) Urine Creatinine Urine Total Protein Fluid Total Protein Vancomycin Trough Rheumatoid Factor Complement C4 Miscellaneous Test Crossmatch See Detail 10/06/16 10/06/16 10/06/16 03:50 03:50 04:53 WBC RBC 3.00 L Hgb 8.6 L Hct 25.8 L MCV MCH MCHC RDW 17.9 H Plt Count 65 L Lymph % (Auto) [place] % (Auto) Lymph # [place] # Baso # Seg Neutrophils % Seg Neuts % (Manual) 30.0 L Lymphocytes % (Manual) 5.0 L Monocytes % (Manual) Eosinophils % (Manual) Basophils % (Manual) Nucleated RBC % Seg Neutrophils # Seg Neutrophils # Man Lymphocytes # (Manual) 0.4 L Monocytes # (Manual) Eosinophils # (Manual) Basophils # (Manual) PT INR Fibrinogen dRVVT Confirm Interp Factor V Activity POC ABG pH 7.310 L POC ABG pCO2 49.0 H POC ABG pO2 ABG pO2 ABG HCO3 ABG Base Excess ABG Hemoglobin Oxyhemoglobin Sodium 133 L Potassium Chloride 95.9 L Carbon Dioxide BUN 26 H Creatinine 2.0 H Glucose 116 H POC Glucose Lactic Acid Calcium 7.8 L Phosphorus Magnesium Direct Bilirubin AST ALT Alkaline Phosphatase Lactate Dehydrogenase Troponin T C-Reactive Protein Total Protein Albumin Prealbumin Triglycerides Cholesterol LDL Cholesterol Direct HDL Cholesterol Urine pH Urine WBC (Auto) Urine Creatinine Urine Total Protein Fluid Total Protein Vancomycin Trough Rheumatoid Factor Complement C4 Miscellaneous Test Crossmatch 10/06/16 10/06/16 10/06/16 05:23 11:52 18:34 WBC RBC Hgb Hct MCV MCH MCHC RDW Plt Count Lymph % (Auto) [place] % (Auto) Lymph # [place] # Baso # Seg Neutrophils % Seg Neuts % (Manual) Lymphocytes % (Manual) Monocytes % (Manual) Eosinophils % (Manual) Basophils % (Manual) Nucleated RBC % Seg Neutrophils # Seg Neutrophils # Man Lymphocytes # (Manual) Monocytes # (Manual) Eosinophils # (Manual) Basophils # (Manual) PT INR Fibrinogen dRVVT Confirm Interp Factor V Activity POC ABG pH POC ABG pCO2 POC ABG pO2 ABG pO2 ABG HCO3 ABG Base Excess ABG Hemoglobin Oxyhemoglobin Sodium Potassium Chloride Carbon Dioxide BUN Creatinine Glucose POC Glucose 126 H 116 H 129 H Lactic Acid Calcium Phosphorus Magnesium Direct Bilirubin AST ALT Alkaline Phosphatase Lactate Dehydrogenase Troponin T C-Reactive Protein Total Protein Albumin Prealbumin Triglycerides Cholesterol LDL Cholesterol Direct HDL Cholesterol Urine pH Urine WBC (Auto) Urine Creatinine Urine Total Protein Fluid Total Protein Vancomycin Trough Rheumatoid Factor Complement C4 Miscellaneous Test Crossmatch 10/07/16 10/07/16 10/07/16 03:45 05:00 10:00 WBC 17.0 H RBC 2.68 L Hgb 7.3 L Hct 25.3 L MCV MCH 27 L MCHC 29 L RDW 19.6 H Plt Count 74 L Lymph % (Auto) [place] % (Auto) Lymph # [place] # Baso # Seg Neutrophils % Seg Neuts % (Manual) Lymphocytes % (Manual) 12.0 L Monocytes % (Manual) Eosinophils % (Manual) Basophils % (Manual) Nucleated RBC % 4.0 H Seg Neutrophils # Seg Neutrophils # Man 10.7 H Lymphocytes # (Manual) Monocytes # (Manual) Eosinophils # (Manual) Basophils # (Manual) PT INR Fibrinogen dRVVT Confirm Interp Factor V Activity POC ABG pH POC ABG pCO2 POC ABG pO2 ABG pO2 ABG HCO3 ABG Base Excess ABG Hemoglobin Oxyhemoglobin Sodium 130 L Potassium 3.2 L Chloride 93.9 L Carbon Dioxide 20 L BUN 44 H Creatinine 2.7 H Glucose 129 H POC Glucose Lactic Acid Calcium 7.4 L Phosphorus Magnesium Direct Bilirubin AST ALT 6 L Alkaline Phosphatase 195 H Lactate Dehydrogenase Troponin T C-Reactive Protein Total Protein 4.9 L Albumin 1.0 L Prealbumin Triglycerides Cholesterol LDL Cholesterol Direct HDL Cholesterol Urine pH Urine WBC (Auto) Urine Creatinine Urine Total Protein Fluid Total Protein Vancomycin Trough Rheumatoid Factor Complement C4 Miscellaneous Test Flexitest 1 H Crossmatch 10/07/16 10/07/16 10/07/16 10:00 11:24 18:10 WBC RBC Hgb Hct MCV MCH MCHC RDW Plt Count Lymph % (Auto) [place] % (Auto) Lymph # [place] # Baso # Seg Neutrophils % Seg Neuts % (Manual) Lymphocytes % (Manual) Monocytes % (Manual) Eosinophils % (Manual) Basophils % (Manual) Nucleated RBC % Seg Neutrophils # Seg Neutrophils # Man Lymphocytes # (Manual) Monocytes # (Manual) Eosinophils # (Manual) Basophils # (Manual) PT INR Fibrinogen dRVVT Confirm Interp Factor V Activity POC ABG pH POC ABG pCO2 POC ABG pO2 ABG pO2 ABG HCO3 ABG Base Excess ABG Hemoglobin Oxyhemoglobin Sodium Potassium Chloride Carbon Dioxide BUN Creatinine Glucose POC Glucose 116 H 130 H Lactic Acid Calcium Phosphorus Magnesium Direct Bilirubin AST ALT Alkaline Phosphatase Lactate Dehydrogenase Troponin T C-Reactive Protein 19.40 H Total Protein Albumin Prealbumin Triglycerides Cholesterol LDL Cholesterol Direct HDL Cholesterol Urine pH Urine WBC (Auto) Urine Creatinine Urine Total Protein Fluid Total Protein Vancomycin Trough Rheumatoid Factor Complement C4 Miscellaneous Test Crossmatch 10/07/16 10/08/16 10/08/16 18:30 00:00 04:00 WBC RBC Hgb Hct MCV MCH MCHC RDW Plt Count Lymph % (Auto) [place] % (Auto) Lymph # [place] # Baso # Seg Neutrophils % Seg Neuts % (Manual) Lymphocytes % (Manual) Monocytes % (Manual) Eosinophils % (Manual) Basophils % (Manual) Nucleated RBC % Seg Neutrophils # Seg Neutrophils # Man Lymphocytes # (Manual) Monocytes # (Manual) Eosinophils # (Manual) Basophils # (Manual) PT INR Fibrinogen dRVVT Confirm Interp Factor V Activity POC ABG pH POC ABG pCO2 POC ABG pO2 ABG pO2 ABG HCO3 ABG Base Excess ABG Hemoglobin Oxyhemoglobin Sodium 132 L Potassium 3.3 L Chloride 93.6 L Carbon Dioxide 17 L BUN 59 H Creatinine 2.7 H Glucose 121 H POC Glucose 122 H Lactic Acid Calcium 7.6 L Phosphorus Magnesium Direct Bilirubin AST ALT Alkaline Phosphatase Lactate Dehydrogenase Troponin T C-Reactive Protein Total Protein Albumin Prealbumin Triglycerides Cholesterol LDL Cholesterol Direct HDL Cholesterol Urine pH Urine WBC (Auto) > 182.0 H Urine Creatinine Urine Total Protein Fluid Total Protein Vancomycin Trough Rheumatoid Factor Complement C4 Miscellaneous Test Crossmatch 10/08/16 10/08/16 10/08/16 04:30 05:30 11:51 WBC RBC 5.15 H Hgb 14.4 H D Hct 44.5 H D MCV MCH MCHC RDW 19.5 H Plt Count 56 L Lymph % (Auto) [place] % (Auto) Lymph # [place] # Baso # Seg Neutrophils % Seg Neuts % (Manual) 24.0 L Lymphocytes % (Manual) 8.0 L Monocytes % (Manual) Eosinophils % (Manual) Basophils % (Manual) Nucleated RBC % 9.0 H Seg Neutrophils # Seg Neutrophils # Man Lymphocytes # (Manual) 0.7 L Monocytes # (Manual) Eosinophils # (Manual) Basophils # (Manual) PT INR Fibrinogen dRVVT Confirm Interp Factor V Activity POC ABG pH POC ABG pCO2 POC ABG pO2 ABG pO2 ABG HCO3 ABG Base Excess ABG Hemoglobin Oxyhemoglobin Sodium Potassium Chloride Carbon Dioxide BUN Creatinine Glucose POC Glucose 125 H 150 H Lactic Acid Calcium Phosphorus Magnesium Direct Bilirubin AST ALT Alkaline Phosphatase Lactate Dehydrogenase Troponin T C-Reactive Protein Total Protein Albumin Prealbumin Triglycerides Cholesterol LDL Cholesterol Direct HDL Cholesterol Urine pH Urine WBC (Auto) Urine Creatinine Urine Total Protein Fluid Total Protein Vancomycin Trough Rheumatoid Factor Complement C4 Miscellaneous Test Crossmatch 10/08/16 10/08/16 10/08/16 12:49 17:07 19:30 WBC RBC Hgb 7.1 L D Hct 22.4 L D MCV MCH MCHC RDW Plt Count Lymph % (Auto) [place] % (Auto) Lymph # [place] # Baso # Seg Neutrophils % Seg Neuts % (Manual) Lymphocytes % (Manual) Monocytes % (Manual) Eosinophils % (Manual) Basophils % (Manual) Nucleated RBC % Seg Neutrophils # Seg Neutrophils # Man Lymphocytes # (Manual) Monocytes # (Manual) Eosinophils # (Manual) Basophils # (Manual) PT INR Fibrinogen dRVVT Confirm Interp Factor V Activity POC ABG pH POC ABG pCO2 28.2 L POC ABG pO2 111 H ABG pO2 ABG HCO3 ABG Base Excess ABG Hemoglobin Oxyhemoglobin Sodium Potassium Chloride Carbon Dioxide BUN Creatinine Glucose POC Glucose 145 H Lactic Acid Calcium Phosphorus Magnesium Direct Bilirubin AST ALT Alkaline Phosphatase Lactate Dehydrogenase Troponin T C-Reactive Protein Total Protein Albumin Prealbumin Triglycerides Cholesterol LDL Cholesterol Direct HDL Cholesterol Urine pH Urine WBC (Auto) Urine Creatinine Urine Total Protein Fluid Total Protein Vancomycin Trough Rheumatoid Factor Complement C4 Miscellaneous Test Crossmatch 10/08/16 10/09/16 10/09/16 19:30 03:45 03:45 WBC 12.6 H RBC 2.36 L Hgb 6.7 L Hct 21.1 L MCV MCH MCHC RDW 19.5 H Plt Count 75 L Lymph % (Auto) [place] % (Auto) Lymph # [place] # Baso # Seg Neutrophils % Seg Neuts % (Manual) Lymphocytes % (Manual) Monocytes % (Manual) 10.0 H Eosinophils % (Manual) Basophils % (Manual) Nucleated RBC % 3.0 H Seg Neutrophils # Seg Neutrophils # Man Lymphocytes # (Manual) Monocytes # (Manual) 1.3 H Eosinophils # (Manual) Basophils # (Manual) PT 18.0 H INR 1.41 H Fibrinogen dRVVT Confirm Interp Factor V Activity POC ABG pH POC ABG pCO2 POC ABG pO2 ABG pO2 ABG HCO3 ABG Base Excess ABG Hemoglobin Oxyhemoglobin Sodium 135 L Potassium Chloride Carbon Dioxide 17 L BUN 81 H Creatinine 3.2 H Glucose 109 H POC Glucose Lactic Acid Calcium 7.4 L Phosphorus 4.60 H D Magnesium Direct Bilirubin AST ALT Alkaline Phosphatase Lactate Dehydrogenase Troponin T C-Reactive Protein Total Protein Albumin Prealbumin Triglycerides Cholesterol LDL Cholesterol Direct HDL Cholesterol Urine pH Urine WBC (Auto) Urine Creatinine Urine Total Protein Fluid Total Protein Vancomycin Trough Rheumatoid Factor Complement C4 Miscellaneous Test Crossmatch 10/09/16 10/09/16 10/09/16 03:45 05:14 07:20 WBC RBC Hgb Hct MCV MCH MCHC RDW Plt Count Lymph % (Auto) [place] % (Auto) Lymph # [place] # Baso # Seg Neutrophils % Seg Neuts % (Manual) Lymphocytes % (Manual) Monocytes % (Manual) Eosinophils % (Manual) Basophils % (Manual) Nucleated RBC % Seg Neutrophils # Seg Neutrophils # Man Lymphocytes # (Manual) Monocytes # (Manual) Eosinophils # (Manual) Basophils # (Manual) PT 19.0 H INR 1.51 H Fibrinogen dRVVT Confirm Interp Factor V Activity POC ABG pH POC ABG pCO2 POC ABG pO2 ABG pO2 ABG HCO3 ABG Base Excess ABG Hemoglobin Oxyhemoglobin Sodium Potassium Chloride Carbon Dioxide BUN Creatinine Glucose POC Glucose 151 H Lactic Acid Calcium Phosphorus Magnesium Direct Bilirubin AST ALT Alkaline Phosphatase Lactate Dehydrogenase Troponin T C-Reactive Protein Total Protein Albumin Prealbumin Triglycerides Cholesterol LDL Cholesterol Direct HDL Cholesterol Urine pH Urine WBC (Auto) Urine Creatinine Urine Total Protein Fluid Total Protein Vancomycin Trough Rheumatoid Factor Complement C4 Miscellaneous Test Crossmatch See Detail 10/09/16 10/09/16 10/09/16 11:46 16:20 16:43 WBC RBC Hgb 7.2 L Hct 22.2 L MCV MCH MCHC RDW Plt Count Lymph % (Auto) [place] % (Auto) Lymph # [place] # Baso # Seg Neutrophils % Seg Neuts % (Manual) Lymphocytes % (Manual) Monocytes % (Manual) Eosinophils % (Manual) Basophils % (Manual) Nucleated RBC % Seg Neutrophils # Seg Neutrophils # Man Lymphocytes # (Manual) Monocytes # (Manual) Eosinophils # (Manual) Basophils # (Manual) PT INR Fibrinogen dRVVT Confirm Interp Factor V Activity POC ABG pH POC ABG pCO2 POC ABG pO2 ABG pO2 ABG HCO3 ABG Base Excess ABG Hemoglobin Oxyhemoglobin Sodium Potassium Chloride Carbon Dioxide BUN Creatinine Glucose POC Glucose 133 H 141 H Lactic Acid Calcium Phosphorus Magnesium Direct Bilirubin AST ALT Alkaline Phosphatase Lactate Dehydrogenase Troponin T C-Reactive Protein Total Protein Albumin Prealbumin Triglycerides Cholesterol LDL Cholesterol Direct HDL Cholesterol Urine pH Urine WBC (Auto) Urine Creatinine Urine Total Protein Fluid Total Protein Vancomycin Trough Rheumatoid Factor Complement C4 Miscellaneous Test Crossmatch 10/10/16 10/10/16 10/10/16 05:00 05:00 11:19 WBC 18.5 H RBC 2.19 L Hgb 6.4 L Hct 19.6 L* MCV MCH MCHC RDW 19.3 H Plt Count 93 L Lymph % (Auto) [place] % (Auto) Lymph # [place] # Baso # Seg Neutrophils % Seg Neuts % (Manual) Lymphocytes % (Manual) 10.0 L Monocytes % (Manual) Eosinophils % (Manual) Basophils % (Manual) Nucleated RBC % 4.0 H Seg Neutrophils # Seg Neutrophils # Man 11.3 H Lymphocytes # (Manual) Monocytes # (Manual) Eosinophils # (Manual) Basophils # (Manual) PT INR Fibrinogen dRVVT Confirm Interp Factor V Activity POC ABG pH POC ABG pCO2 POC ABG pO2 ABG pO2 ABG HCO3 ABG Base Excess ABG Hemoglobin Oxyhemoglobin Sodium Potassium 5.7 H D Chloride Carbon Dioxide 16 L BUN 94 H Creatinine 3.1 H Glucose 131 H POC Glucose 153 H Lactic Acid Calcium 8.2 L Phosphorus 5.10 H Magnesium 2.40 H Direct Bilirubin 0.3 H AST ALT < 5 L Alkaline Phosphatase 319 H Lactate Dehydrogenase Troponin T C-Reactive Protein Total Protein 5.1 L Albumin 1.0 L Prealbumin Triglycerides Cholesterol LDL Cholesterol Direct HDL Cholesterol Urine pH Urine WBC (Auto) Urine Creatinine Urine Total Protein Fluid Total Protein Vancomycin Trough Rheumatoid Factor Complement C4 Miscellaneous Test Crossmatch 10/10/16 10/10/16 10/11/16 17:50 23:30 04:15 WBC RBC Hgb Hct MCV MCH MCHC RDW Plt Count Lymph % (Auto) [place] % (Auto) Lymph # [place] # Baso # Seg Neutrophils % Seg Neuts % (Manual) Lymphocytes % (Manual) Monocytes % (Manual) Eosinophils % (Manual) Basophils % (Manual) Nucleated RBC % Seg Neutrophils # Seg Neutrophils # Man Lymphocytes # (Manual) Monocytes # (Manual) Eosinophils # (Manual) Basophils # (Manual) PT INR Fibrinogen dRVVT Confirm Interp Factor V Activity POC ABG pH POC ABG pCO2 POC ABG pO2 ABG pO2 ABG HCO3 ABG Base Excess ABG Hemoglobin Oxyhemoglobin Sodium Potassium Chloride 96.4 L Carbon Dioxide 21 L BUN 57 H Creatinine 2.1 H Glucose 151 H POC Glucose 146 H 141 H Lactic Acid Calcium 8.3 L Phosphorus Magnesium Direct Bilirubin AST ALT Alkaline Phosphatase Lactate Dehydrogenase Troponin T C-Reactive Protein Total Protein Albumin Prealbumin Triglycerides Cholesterol LDL Cholesterol Direct HDL Cholesterol Urine pH Urine WBC (Auto) Urine Creatinine Urine Total Protein Fluid Total Protein Vancomycin Trough Rheumatoid Factor Complement C4 Miscellaneous Test Crossmatch 10/11/16 10/11/16 10/11/16 04:15 04:15 05:30 WBC 28.3 H RBC 3.12 L Hgb 9.3 L Hct 28.7 L D MCV MCH MCHC RDW 17.7 H Plt Count 128 L Lymph % (Auto) [place] % (Auto) Lymph # [place] # Baso # Seg Neutrophils % Seg Neuts % (Manual) Lymphocytes % (Manual) Monocytes % (Manual) Eosinophils % (Manual) Basophils % (Manual) Nucleated RBC % Seg Neutrophils # Seg Neutrophils # Man Lymphocytes # (Manual) Monocytes # (Manual) Eosinophils # (Manual) Basophils # (Manual) PT INR Fibrinogen dRVVT Confirm Interp Factor V Activity POC ABG pH POC ABG pCO2 POC ABG pO2 ABG pO2 ABG HCO3 ABG Base Excess ABG Hemoglobin Oxyhemoglobin Sodium Potassium Chloride Carbon Dioxide BUN Creatinine Glucose POC Glucose 167 H Lactic Acid Calcium Phosphorus Magnesium Direct Bilirubin AST ALT Alkaline Phosphatase Lactate Dehydrogenase Troponin T C-Reactive Protein 15.80 H Total Protein Albumin Prealbumin Triglycerides Cholesterol LDL Cholesterol Direct HDL Cholesterol Urine pH Urine WBC (Auto) Urine Creatinine Urine Total Protein Fluid Total Protein Vancomycin Trough Rheumatoid Factor Complement C4 Miscellaneous Test Crossmatch 10/11/16 10/11/16 10/11/16 11:40 15:49 23:57 WBC RBC Hgb Hct MCV MCH MCHC RDW Plt Count Lymph % (Auto) [place] % (Auto) Lymph # [place] # Baso # Seg Neutrophils % Seg Neuts % (Manual) Lymphocytes % (Manual) Monocytes % (Manual) Eosinophils % (Manual) Basophils % (Manual) Nucleated RBC % Seg Neutrophils # Seg Neutrophils # Man Lymphocytes # (Manual) Monocytes # (Manual) Eosinophils # (Manual) Basophils # (Manual) PT INR Fibrinogen dRVVT Confirm Interp Factor V Activity POC ABG pH POC ABG pCO2 POC ABG pO2 ABG pO2 ABG HCO3 ABG Base Excess ABG Hemoglobin Oxyhemoglobin Sodium Potassium Chloride Carbon Dioxide BUN Creatinine Glucose POC Glucose 139 H 168 H 161 H Lactic Acid Calcium Phosphorus Magnesium Direct Bilirubin AST ALT Alkaline Phosphatase Lactate Dehydrogenase Troponin T C-Reactive Protein Total Protein Albumin Prealbumin Triglycerides Cholesterol LDL Cholesterol Direct HDL Cholesterol Urine pH Urine WBC (Auto) Urine Creatinine Urine Total Protein Fluid Total Protein Vancomycin Trough Rheumatoid Factor Complement C4 Miscellaneous Test Crossmatch 10/12/16 10/12/16 10/12/16 04:40 04:40 05:44 WBC 22.5 H RBC 2.88 L Hgb 8.8 L Hct 26.8 L MCV MCH MCHC RDW 17.8 H Plt Count Lymph % (Auto) [place] % (Auto) Lymph # [place] # Baso # Seg Neutrophils % Seg Neuts % (Manual) Lymphocytes % (Manual) Monocytes % (Manual) Eosinophils % (Manual) Basophils % (Manual) Nucleated RBC % Seg Neutrophils # Seg Neutrophils # Man Lymphocytes # (Manual) Monocytes # (Manual) Eosinophils # (Manual) Basophils # (Manual) PT INR Fibrinogen dRVVT Confirm Interp Factor V Activity POC ABG pH POC ABG pCO2 POC ABG pO2 ABG pO2 ABG HCO3 ABG Base Excess ABG Hemoglobin Oxyhemoglobin Sodium 134 L Potassium Chloride 93.0 L Carbon Dioxide BUN 74 H Creatinine 2.5 H Glucose 137 H POC Glucose 158 H Lactic Acid Calcium 8.2 L Phosphorus Magnesium Direct Bilirubin AST ALT Alkaline Phosphatase Lactate Dehydrogenase Troponin T C-Reactive Protein Total Protein Albumin Prealbumin Triglycerides Cholesterol LDL Cholesterol Direct HDL Cholesterol Urine pH Urine WBC (Auto) Urine Creatinine Urine Total Protein Fluid Total Protein Vancomycin Trough Rheumatoid Factor Complement C4 Miscellaneous Test Crossmatch 10/12/16 10/12/16 10/12/16 12:27 18:18 23:46 WBC RBC Hgb Hct MCV MCH MCHC RDW Plt Count Lymph % (Auto) [place] % (Auto) Lymph # [place] # Baso # Seg Neutrophils % Seg Neuts % (Manual) Lymphocytes % (Manual) Monocytes % (Manual) Eosinophils % (Manual) Basophils % (Manual) Nucleated RBC % Seg Neutrophils # Seg Neutrophils # Man Lymphocytes # (Manual) Monocytes # (Manual) Eosinophils # (Manual) Basophils # (Manual) PT INR Fibrinogen dRVVT Confirm Interp Factor V Activity POC ABG pH POC ABG pCO2 POC ABG pO2 ABG pO2 ABG HCO3 ABG Base Excess ABG Hemoglobin Oxyhemoglobin Sodium Potassium Chloride Carbon Dioxide BUN Creatinine Glucose POC Glucose 153 H 140 H 150 H Lactic Acid Calcium Phosphorus Magnesium Direct Bilirubin AST ALT Alkaline Phosphatase Lactate Dehydrogenase Troponin T C-Reactive Protein Total Protein Albumin Prealbumin Triglycerides Cholesterol LDL Cholesterol Direct HDL Cholesterol Urine pH Urine WBC (Auto) Urine Creatinine Urine Total Protein Fluid Total Protein Vancomycin Trough Rheumatoid Factor Complement C4 Miscellaneous Test Crossmatch 10/13/16 10/13/16 10/13/16 06:22 09:20 12:29 WBC RBC Hgb Hct MCV MCH MCHC RDW Plt Count Lymph % (Auto) [place] % (Auto) Lymph # [place] # Baso # Seg Neutrophils % Seg Neuts % (Manual) Lymphocytes % (Manual) Monocytes % (Manual) Eosinophils % (Manual) Basophils % (Manual) Nucleated RBC % Seg Neutrophils # Seg Neutrophils # Man Lymphocytes # (Manual) Monocytes # (Manual) Eosinophils # (Manual) Basophils # (Manual) PT INR Fibrinogen dRVVT Confirm Interp Factor V Activity POC ABG pH POC ABG pCO2 POC ABG pO2 ABG pO2 ABG HCO3 ABG Base Excess ABG Hemoglobin Oxyhemoglobin Sodium Potassium Chloride Carbon Dioxide BUN Creatinine Glucose POC Glucose 165 H 193 H Lactic Acid Calcium Phosphorus Magnesium Direct Bilirubin AST ALT Alkaline Phosphatase Lactate Dehydrogenase Troponin T C-Reactive Protein Total Protein Albumin Prealbumin Triglycerides Cholesterol LDL Cholesterol Direct HDL Cholesterol Urine pH Urine WBC (Auto) Urine Creatinine Urine Total Protein Fluid Total Protein Vancomycin Trough Rheumatoid Factor Complement C4 Miscellaneous Test Flexitest 1 H Crossmatch 10/13/16 10/13/16 10/13/16 18:09 Unknown Unknown WBC 23.4 H RBC 2.83 L Hgb 8.7 L Hct 26.1 L MCV MCH MCHC RDW 18.1 H Plt Count Lymph % (Auto) [place] % (Auto) Lymph # [place] # Baso # Seg Neutrophils % Seg Neuts % (Manual) Lymphocytes % (Manual) Monocytes % (Manual) Eosinophils % (Manual) Basophils % (Manual) Nucleated RBC % Seg Neutrophils # Seg Neutrophils # Man Lymphocytes # (Manual) Monocytes # (Manual) Eosinophils # (Manual) Basophils # (Manual) PT INR Fibrinogen dRVVT Confirm Interp Factor V Activity POC ABG pH POC ABG pCO2 POC ABG pO2 ABG pO2 ABG HCO3 ABG Base Excess ABG Hemoglobin Oxyhemoglobin Sodium Potassium Chloride 95.8 L Carbon Dioxide BUN 82 H Creatinine 2.6 H Glucose 152 H POC Glucose 166 H Lactic Acid Calcium Phosphorus Magnesium Direct Bilirubin AST ALT Alkaline Phosphatase Lactate Dehydrogenase Troponin T C-Reactive Protein Total Protein Albumin Prealbumin Triglycerides Cholesterol LDL Cholesterol Direct HDL Cholesterol Urine pH Urine WBC (Auto) Urine Creatinine Urine Total Protein Fluid Total Protein Vancomycin Trough Rheumatoid Factor Complement C4 Miscellaneous Test Crossmatch 10/14/16 10/14/16 10/14/16 05:38 06:35 08:10 WBC 20.7 H RBC 2.81 L Hgb 8.4 L Hct 27.2 L MCV MCH MCHC RDW 19.4 H Plt Count Lymph % (Auto) [place] % (Auto) Lymph # [place] # Baso # Seg Neutrophils % Seg Neuts % (Manual) Lymphocytes % (Manual) Monocytes % (Manual) Eosinophils % (Manual) Basophils % (Manual) Nucleated RBC % Seg Neutrophils # Seg Neutrophils # Man Lymphocytes # (Manual) Monocytes # (Manual) Eosinophils # (Manual) Basophils # (Manual) PT INR Fibrinogen dRVVT Confirm Interp Factor V Activity POC ABG pH POC ABG pCO2 POC ABG pO2 ABG pO2 ABG HCO3 ABG Base Excess ABG Hemoglobin Oxyhemoglobin Sodium Potassium Chloride Carbon Dioxide BUN 58 H Creatinine 1.9 H Glucose 169 H POC Glucose 195 H Lactic Acid Calcium Phosphorus Magnesium Direct Bilirubin AST ALT Alkaline Phosphatase Lactate Dehydrogenase Troponin T C-Reactive Protein Total Protein Albumin Prealbumin Triglycerides Cholesterol LDL Cholesterol Direct HDL Cholesterol Urine pH Urine WBC (Auto) Urine Creatinine Urine Total Protein Fluid Total Protein Vancomycin Trough Rheumatoid Factor Complement C4 Miscellaneous Test Crossmatch 10/14/16 10/14/16 10/14/16 11:44 17:13 23:28 WBC RBC Hgb Hct MCV MCH MCHC RDW Plt Count Lymph % (Auto) [place] % (Auto) Lymph # [place] # Baso # Seg Neutrophils % Seg Neuts % (Manual) Lymphocytes % (Manual) Monocytes % (Manual) Eosinophils % (Manual) Basophils % (Manual) Nucleated RBC % Seg Neutrophils # Seg Neutrophils # Man Lymphocytes # (Manual) Monocytes # (Manual) Eosinophils # (Manual) Basophils # (Manual) PT INR Fibrinogen dRVVT Confirm Interp Factor V Activity POC ABG pH POC ABG pCO2 POC ABG pO2 ABG pO2 ABG HCO3 ABG Base Excess ABG Hemoglobin Oxyhemoglobin Sodium Potassium Chloride Carbon Dioxide BUN Creatinine Glucose POC Glucose 174 H 121 H 151 H Lactic Acid Calcium Phosphorus Magnesium Direct Bilirubin AST ALT Alkaline Phosphatase Lactate Dehydrogenase Troponin T C-Reactive Protein Total Protein Albumin Prealbumin Triglycerides Cholesterol LDL Cholesterol Direct HDL Cholesterol Urine pH Urine WBC (Auto) Urine Creatinine Urine Total Protein Fluid Total Protein Vancomycin Trough Rheumatoid Factor Complement C4 Miscellaneous Test Crossmatch 10/15/16 10/15/16 10/15/16 05:06 12:26 17:48 WBC RBC Hgb Hct MCV MCH MCHC RDW Plt Count Lymph % (Auto) [place] % (Auto) Lymph # [place] # Baso # Seg Neutrophils % Seg Neuts % (Manual) Lymphocytes % (Manual) Monocytes % (Manual) Eosinophils % (Manual) Basophils % (Manual) Nucleated RBC % Seg Neutrophils # Seg Neutrophils # Man Lymphocytes # (Manual) Monocytes # (Manual) Eosinophils # (Manual) Basophils # (Manual) PT INR Fibrinogen dRVVT Confirm Interp Factor V Activity POC ABG pH POC ABG pCO2 POC ABG pO2 ABG pO2 ABG HCO3 ABG Base Excess ABG Hemoglobin Oxyhemoglobin Sodium Potassium Chloride Carbon Dioxide BUN Creatinine Glucose POC Glucose 151 H 149 H 153 H Lactic Acid Calcium Phosphorus Magnesium Direct Bilirubin AST ALT Alkaline Phosphatase Lactate Dehydrogenase Troponin T C-Reactive Protein Total Protein Albumin Prealbumin Triglycerides Cholesterol LDL Cholesterol Direct HDL Cholesterol Urine pH Urine WBC (Auto) Urine Creatinine Urine Total Protein Fluid Total Protein Vancomycin Trough Rheumatoid Factor Complement C4 Miscellaneous Test Crossmatch 10/15/16 10/15/16 10/16/16 Unknown Unknown 00:02 WBC 23.4 H RBC 2.78 L Hgb 8.5 L Hct 25.7 L MCV MCH MCHC RDW 18.7 H Plt Count Lymph % (Auto) [place] % (Auto) Lymph # [place] # Baso # Seg Neutrophils % Seg Neuts % (Manual) Lymphocytes % (Manual) Monocytes % (Manual) Eosinophils % (Manual) Basophils % (Manual) Nucleated RBC % Seg Neutrophils # Seg Neutrophils # Man Lymphocytes # (Manual) Monocytes # (Manual) Eosinophils # (Manual) Basophils # (Manual) PT INR Fibrinogen dRVVT Confirm Interp Factor V Activity POC ABG pH POC ABG pCO2 POC ABG pO2 ABG pO2 ABG HCO3 ABG Base Excess ABG Hemoglobin Oxyhemoglobin Sodium Potassium Chloride Carbon Dioxide BUN 73 H Creatinine 2.3 H Glucose 120 H POC Glucose 137 H Lactic Acid Calcium Phosphorus Magnesium Direct Bilirubin AST ALT Alkaline Phosphatase Lactate Dehydrogenase Troponin T C-Reactive Protein Total Protein Albumin Prealbumin Triglycerides Cholesterol LDL Cholesterol Direct HDL Cholesterol Urine pH Urine WBC (Auto) Urine Creatinine Urine Total Protein Fluid Total Protein Vancomycin Trough Rheumatoid Factor Complement C4 Miscellaneous Test Crossmatch 10/16/16 10/16/16 10/16/16 05:44 06:25 06:25 WBC 22.5 H RBC 2.76 L Hgb 8.3 L Hct 25.2 L MCV MCH MCHC RDW 18.3 H Plt Count Lymph % (Auto) [place] % (Auto) Lymph # [place] # Baso # Seg Neutrophils % Seg Neuts % (Manual) Lymphocytes % (Manual) Monocytes % (Manual) Eosinophils % (Manual) Basophils % (Manual) Nucleated RBC % Seg Neutrophils # Seg Neutrophils # Man Lymphocytes # (Manual) Monocytes # (Manual) Eosinophils # (Manual) Basophils # (Manual) PT INR Fibrinogen dRVVT Confirm Interp Factor V Activity POC ABG pH POC ABG pCO2 POC ABG pO2 ABG pO2 ABG HCO3 ABG Base Excess ABG Hemoglobin Oxyhemoglobin Sodium Potassium Chloride Carbon Dioxide BUN 92 H Creatinine 3.0 H Glucose 138 H POC Glucose 110 H Lactic Acid Calcium Phosphorus Magnesium Direct Bilirubin AST ALT Alkaline Phosphatase Lactate Dehydrogenase Troponin T C-Reactive Protein Total Protein Albumin Prealbumin Triglycerides Cholesterol LDL Cholesterol Direct HDL Cholesterol Urine pH Urine WBC (Auto) Urine Creatinine Urine Total Protein Fluid Total Protein Vancomycin Trough Rheumatoid Factor Complement C4 Miscellaneous Test Crossmatch 10/16/16 10/16/16 10/16/16 11:27 11:48 17:36 WBC RBC Hgb Hct MCV MCH MCHC RDW Plt Count Lymph % (Auto) [place] % (Auto) Lymph # [place] # Baso # Seg Neutrophils % Seg Neuts % (Manual) Lymphocytes % (Manual) Monocytes % (Manual) Eosinophils % (Manual) Basophils % (Manual) Nucleated RBC % Seg Neutrophils # Seg Neutrophils # Man Lymphocytes # (Manual) Monocytes # (Manual) Eosinophils # (Manual) Basophils # (Manual) PT INR Fibrinogen dRVVT Confirm Interp Factor V Activity POC ABG pH 7.582 H POC ABG pCO2 27.4 L POC ABG pO2 110 H ABG pO2 ABG HCO3 ABG Base Excess ABG Hemoglobin Oxyhemoglobin Sodium Potassium Chloride Carbon Dioxide BUN Creatinine Glucose POC Glucose 121 H 133 H Lactic Acid Calcium Phosphorus Magnesium Direct Bilirubin AST ALT Alkaline Phosphatase Lactate Dehydrogenase Troponin T C-Reactive Protein Total Protein Albumin Prealbumin Triglycerides Cholesterol LDL Cholesterol Direct HDL Cholesterol Urine pH Urine WBC (Auto) Urine Creatinine Urine Total Protein Fluid Total Protein Vancomycin Trough Rheumatoid Factor Complement C4 Miscellaneous Test Crossmatch 10/16/16 10/17/16 10/17/16 20:48 04:24 04:24 WBC 21.4 H RBC 2.72 L Hgb 8.0 L Hct 25.2 L MCV MCH MCHC RDW 18.0 H Plt Count Lymph % (Auto) [place] % (Auto) Lymph # [place] # Baso # Seg Neutrophils % Seg Neuts % (Manual) Lymphocytes % (Manual) Monocytes % (Manual) Eosinophils % (Manual) Basophils % (Manual) Nucleated RBC % Seg Neutrophils # Seg Neutrophils # Man Lymphocytes # (Manual) Monocytes # (Manual) Eosinophils # (Manual) Basophils # (Manual) PT INR Fibrinogen dRVVT Confirm Interp Factor V Activity POC ABG pH 7.561 H POC ABG pCO2 24.4 L POC ABG pO2 77 L ABG pO2 ABG HCO3 ABG Base Excess ABG Hemoglobin Oxyhemoglobin Sodium 148 H Potassium Chloride Carbon Dioxide BUN 104 H Creatinine 3.0 H Glucose 149 H POC Glucose Lactic Acid Calcium Phosphorus Magnesium Direct Bilirubin AST ALT Alkaline Phosphatase 138 H Lactate Dehydrogenase Troponin T C-Reactive Protein Total Protein 6.2 L Albumin 1.5 L Prealbumin Triglycerides Cholesterol LDL Cholesterol Direct HDL Cholesterol Urine pH Urine WBC (Auto) Urine Creatinine Urine Total Protein Fluid Total Protein Vancomycin Trough Rheumatoid Factor Complement C4 Miscellaneous Test Crossmatch 10/17/16 10/17/16 10/17/16 06:02 12:17 17:14 WBC RBC Hgb Hct MCV MCH MCHC RDW Plt Count Lymph % (Auto) [place] % (Auto) Lymph # [place] # Baso # Seg Neutrophils % Seg Neuts % (Manual) Lymphocytes % (Manual) Monocytes % (Manual) Eosinophils % (Manual) Basophils % (Manual) Nucleated RBC % Seg Neutrophils # Seg Neutrophils # Man Lymphocytes # (Manual) Monocytes # (Manual) Eosinophils # (Manual) Basophils # (Manual) PT INR Fibrinogen dRVVT Confirm Interp Factor V Activity POC ABG pH POC ABG pCO2 POC ABG pO2 ABG pO2 ABG HCO3 ABG Base Excess ABG Hemoglobin Oxyhemoglobin Sodium Potassium Chloride Carbon Dioxide BUN Creatinine Glucose POC Glucose 170 H 167 H 126 H Lactic Acid Calcium Phosphorus Magnesium Direct Bilirubin AST ALT Alkaline Phosphatase Lactate Dehydrogenase Troponin T C-Reactive Protein Total Protein Albumin Prealbumin Triglycerides Cholesterol LDL Cholesterol Direct HDL Cholesterol Urine pH Urine WBC (Auto) Urine Creatinine Urine Total Protein Fluid Total Protein Vancomycin Trough Rheumatoid Factor Complement C4 Miscellaneous Test Crossmatch 10/17/16 10/18/16 10/18/16 23:17 04:00 04:00 WBC 20.7 H RBC 2.47 L Hgb 7.4 L Hct 22.9 L MCV MCH MCHC RDW 17.5 H Plt Count Lymph % (Auto) [place] % (Auto) Lymph # [place] # Baso # Seg Neutrophils % Seg Neuts % (Manual) Lymphocytes % (Manual) Monocytes % (Manual) Eosinophils % (Manual) Basophils % (Manual) Nucleated RBC % Seg Neutrophils # Seg Neutrophils # Man Lymphocytes # (Manual) Monocytes # (Manual) Eosinophils # (Manual) Basophils # (Manual) PT INR Fibrinogen dRVVT Confirm Interp Factor V Activity POC ABG pH POC ABG pCO2 POC ABG pO2 ABG pO2 ABG HCO3 ABG Base Excess ABG Hemoglobin Oxyhemoglobin Sodium 149 H Potassium Chloride 107.9 H Carbon Dioxide 20 L BUN 117 H Creatinine 3.2 H Glucose 119 H POC Glucose 121 H Lactic Acid Calcium Phosphorus Magnesium Direct Bilirubin AST ALT Alkaline Phosphatase Lactate Dehydrogenase Troponin T C-Reactive Protein Total Protein Albumin Prealbumin Triglycerides Cholesterol LDL Cholesterol Direct HDL Cholesterol Urine pH Urine WBC (Auto) Urine Creatinine Urine Total Protein Fluid Total Protein Vancomycin Trough Rheumatoid Factor Complement C4 Miscellaneous Test Crossmatch 10/18/16 10/18/16 10/18/16 05:23 10:46 17:30 WBC RBC Hgb Hct MCV MCH MCHC RDW Plt Count Lymph % (Auto) [place] % (Auto) Lymph # [place] # Baso # Seg Neutrophils % Seg Neuts % (Manual) Lymphocytes % (Manual) Monocytes % (Manual) Eosinophils % (Manual) Basophils % (Manual) Nucleated RBC % Seg Neutrophils # Seg Neutrophils # Man Lymphocytes # (Manual) Monocytes # (Manual) Eosinophils # (Manual) Basophils # (Manual) PT INR Fibrinogen dRVVT Confirm Interp Factor V Activity POC ABG pH POC ABG pCO2 POC ABG pO2 ABG pO2 ABG HCO3 ABG Base Excess ABG Hemoglobin Oxyhemoglobin Sodium Potassium Chloride Carbon Dioxide BUN Creatinine Glucose POC Glucose 119 H 155 H 124 H Lactic Acid Calcium Phosphorus Magnesium Direct Bilirubin AST ALT Alkaline Phosphatase Lactate Dehydrogenase Troponin T C-Reactive Protein Total Protein Albumin Prealbumin Triglycerides Cholesterol LDL Cholesterol Direct HDL Cholesterol Urine pH Urine WBC (Auto) Urine Creatinine Urine Total Protein Fluid Total Protein Vancomycin Trough Rheumatoid Factor Complement C4 Miscellaneous Test Crossmatch 10/19/16 10/19/16 10/19/16 04:00 04:00 05:25 WBC 17.4 H RBC 2.54 L Hgb 7.7 L Hct 23.6 L MCV MCH MCHC RDW 17.3 H Plt Count Lymph % (Auto) [place] % (Auto) Lymph # [place] # Baso # Seg Neutrophils % Seg Neuts % (Manual) Lymphocytes % (Manual) Monocytes % (Manual) Eosinophils % (Manual) Basophils % (Manual) Nucleated RBC % Seg Neutrophils # Seg Neutrophils # Man Lymphocytes # (Manual) Monocytes # (Manual) Eosinophils # (Manual) Basophils # (Manual) PT INR Fibrinogen dRVVT Confirm Interp Factor V Activity POC ABG pH POC ABG pCO2 POC ABG pO2 ABG pO2 ABG HCO3 ABG Base Excess ABG Hemoglobin Oxyhemoglobin Sodium Potassium Chloride Carbon Dioxide BUN 72 H Creatinine 2.1 H Glucose 116 H POC Glucose 119 H Lactic Acid Calcium Phosphorus Magnesium Direct Bilirubin AST ALT Alkaline Phosphatase Lactate Dehydrogenase Troponin T C-Reactive Protein Total Protein Albumin Prealbumin Triglycerides Cholesterol LDL Cholesterol Direct HDL Cholesterol Urine pH Urine WBC (Auto) Urine Creatinine Urine Total Protein Fluid Total Protein Vancomycin Trough Rheumatoid Factor Complement C4 Miscellaneous Test Crossmatch 10/19/16 10/19/16 10/20/16 11:46 23:59 06:00 WBC RBC Hgb Hct MCV MCH MCHC RDW Plt Count Lymph % (Auto) [place] % (Auto) Lymph # [place] # Baso # Seg Neutrophils % Seg Neuts % (Manual) Lymphocytes % (Manual) Monocytes % (Manual) Eosinophils % (Manual) Basophils % (Manual) Nucleated RBC % Seg Neutrophils # Seg Neutrophils # Man Lymphocytes # (Manual) Monocytes # (Manual) Eosinophils # (Manual) Basophils # (Manual) PT INR Fibrinogen dRVVT Confirm Interp Factor V Activity POC ABG pH POC ABG pCO2 POC ABG pO2 ABG pO2 ABG HCO3 ABG Base Excess ABG Hemoglobin Oxyhemoglobin Sodium Potassium Chloride Carbon Dioxide 17 L BUN 94 H Creatinine 2.7 H Glucose POC Glucose 116 H 117 H Lactic Acid Calcium Phosphorus Magnesium Direct Bilirubin AST ALT Alkaline Phosphatase Lactate Dehydrogenase Troponin T C-Reactive Protein Total Protein Albumin Prealbumin Triglycerides Cholesterol LDL Cholesterol Direct HDL Cholesterol Urine pH Urine WBC (Auto) Urine Creatinine Urine Total Protein Fluid Total Protein Vancomycin Trough Rheumatoid Factor Complement C4 Miscellaneous Test Crossmatch 10/20/16 10/20/16 10/20/16 06:00 11:49 16:00 WBC 19.7 H RBC 2.51 L Hgb 7.7 L Hct 23.5 L MCV MCH MCHC RDW 17.5 H Plt Count Lymph % (Auto) [place] % (Auto) Lymph # [place] # Baso # Seg Neutrophils % Seg Neuts % (Manual) Lymphocytes % (Manual) Monocytes % (Manual) Eosinophils % (Manual) Basophils % (Manual) Nucleated RBC % Seg Neutrophils # Seg Neutrophils # Man Lymphocytes # (Manual) Monocytes # (Manual) Eosinophils # (Manual) Basophils # (Manual) PT INR Fibrinogen dRVVT Confirm Interp Factor V Activity POC ABG pH POC ABG pCO2 POC ABG pO2 ABG pO2 ABG HCO3 ABG Base Excess ABG Hemoglobin Oxyhemoglobin Sodium Potassium Chloride Carbon Dioxide BUN Creatinine Glucose POC Glucose 117 H Lactic Acid Calcium Phosphorus Magnesium Direct Bilirubin AST ALT Alkaline Phosphatase Lactate Dehydrogenase Troponin T C-Reactive Protein Total Protein Albumin Prealbumin Triglycerides Cholesterol LDL Cholesterol Direct HDL Cholesterol Urine pH Urine WBC (Auto) Urine Creatinine Urine Total Protein Fluid Total Protein Vancomycin Trough Rheumatoid Factor Complement C4 Miscellaneous Test Flexitest 1 H Crossmatch 10/20/16 10/20/16 10/21/16 18:36 23:39 04:00 WBC RBC Hgb Hct MCV MCH MCHC RDW Plt Count Lymph % (Auto) [place] % (Auto) Lymph # [place] # Baso # Seg Neutrophils % Seg Neuts % (Manual) Lymphocytes % (Manual) Monocytes % (Manual) Eosinophils % (Manual) Basophils % (Manual) Nucleated RBC % Seg Neutrophils # Seg Neutrophils # Man Lymphocytes # (Manual) Monocytes # (Manual) Eosinophils # (Manual) Basophils # (Manual) PT INR Fibrinogen dRVVT Confirm Interp Factor V Activity POC ABG pH POC ABG pCO2 POC ABG pO2 ABG pO2 ABG HCO3 ABG Base Excess ABG Hemoglobin Oxyhemoglobin Sodium Potassium 5.4 H D Chloride Carbon Dioxide 15 L BUN 110 H Creatinine 3.0 H Glucose POC Glucose 127 H 114 H Lactic Acid Calcium Phosphorus Magnesium Direct Bilirubin AST ALT Alkaline Phosphatase Lactate Dehydrogenase Troponin T C-Reactive Protein Total Protein Albumin Prealbumin Triglycerides Cholesterol LDL Cholesterol Direct HDL Cholesterol Urine pH Urine WBC (Auto) Urine Creatinine Urine Total Protein Fluid Total Protein Vancomycin Trough Rheumatoid Factor Complement C4 Miscellaneous Test Crossmatch 10/21/16 10/21/16 10/22/16 05:54 23:46 05:18 WBC RBC Hgb Hct MCV MCH MCHC RDW Plt Count Lymph % (Auto) [place] % (Auto) Lymph # [place] # Baso # Seg Neutrophils % Seg Neuts % (Manual) Lymphocytes % (Manual) Monocytes % (Manual) Eosinophils % (Manual) Basophils % (Manual) Nucleated RBC % Seg Neutrophils # Seg Neutrophils # Man Lymphocytes # (Manual) Monocytes # (Manual) Eosinophils # (Manual) Basophils # (Manual) PT INR Fibrinogen dRVVT Confirm Interp Factor V Activity POC ABG pH POC ABG pCO2 POC ABG pO2 ABG pO2 ABG HCO3 ABG Base Excess ABG Hemoglobin Oxyhemoglobin Sodium Potassium Chloride Carbon Dioxide BUN Creatinine Glucose POC Glucose 119 H 108 H 109 H Lactic Acid Calcium Phosphorus Magnesium Direct Bilirubin AST ALT Alkaline Phosphatase Lactate Dehydrogenase Troponin T C-Reactive Protein Total Protein Albumin Prealbumin Triglycerides Cholesterol LDL Cholesterol Direct HDL Cholesterol Urine pH Urine WBC (Auto) Urine Creatinine Urine Total Protein Fluid Total Protein Vancomycin Trough Rheumatoid Factor Complement C4 Miscellaneous Test Crossmatch 10/22/16 10/22/16 10/22/16 06:40 06:40 06:40 WBC 14.0 H RBC 2.03 L Hgb 7.0 L Hct 20.5 L MCV 98 H MCH 34 H MCHC 35 H RDW 17.8 H Plt Count Lymph % (Auto) [place] % (Auto) 9.9 H Lymph # [place] # 1.4 H Baso # 0.2 H Seg Neutrophils % 72.0 H Seg Neuts % (Manual) Lymphocytes % (Manual) Monocytes % (Manual) Eosinophils % (Manual) Basophils % (Manual) Nucleated RBC % Seg Neutrophils # 10.0 H Seg Neutrophils # Man Lymphocytes # (Manual) Monocytes # (Manual) Eosinophils # (Manual) Basophils # (Manual) PT INR Fibrinogen dRVVT Confirm Interp Factor V Activity POC ABG pH POC ABG pCO2 POC ABG pO2 ABG pO2 ABG HCO3 ABG Base Excess ABG Hemoglobin Oxyhemoglobin Sodium 130 L D Potassium Chloride 92.4 L Carbon Dioxide 20 L BUN 50 H Creatinine 1.6 H Glucose 589 H* POC Glucose Lactic Acid Calcium 7.8 L D Phosphorus Magnesium 1.60 L Direct Bilirubin AST ALT Alkaline Phosphatase Lactate Dehydrogenase Troponin T C-Reactive Protein Total Protein Albumin Prealbumin Triglycerides Cholesterol LDL Cholesterol Direct HDL Cholesterol Urine pH Urine WBC (Auto) Urine Creatinine Urine Total Protein Fluid Total Protein Vancomycin Trough Rheumatoid Factor Complement C4 Miscellaneous Test Crossmatch 10/22/16 10/22/16 10/22/16 11:39 16:44 23:36 WBC RBC Hgb Hct MCV MCH MCHC RDW Plt Count Lymph % (Auto) [place] % (Auto) Lymph # [place] # Baso # Seg Neutrophils % Seg Neuts % (Manual) Lymphocytes % (Manual) Monocytes % (Manual) Eosinophils % (Manual) Basophils % (Manual) Nucleated RBC % Seg Neutrophils # Seg Neutrophils # Man Lymphocytes # (Manual) Monocytes # (Manual) Eosinophils # (Manual) Basophils # (Manual) PT INR Fibrinogen dRVVT Confirm Interp Factor V Activity POC ABG pH POC ABG pCO2 POC ABG pO2 ABG pO2 ABG HCO3 ABG Base Excess ABG Hemoglobin Oxyhemoglobin Sodium Potassium Chloride Carbon Dioxide BUN Creatinine Glucose POC Glucose 142 H 163 H 123 H Lactic Acid Calcium Phosphorus Magnesium Direct Bilirubin AST ALT Alkaline Phosphatase Lactate Dehydrogenase Troponin T C-Reactive Protein Total Protein Albumin Prealbumin Triglycerides Cholesterol LDL Cholesterol Direct HDL Cholesterol Urine pH Urine WBC (Auto) Urine Creatinine Urine Total Protein Fluid Total Protein Vancomycin Trough Rheumatoid Factor Complement C4 Miscellaneous Test Crossmatch 10/23/16 10/23/16 10/23/16 04:58 06:00 12:12 WBC RBC Hgb Hct MCV MCH MCHC RDW Plt Count Lymph % (Auto) [place] % (Auto) Lymph # [place] # Baso # Seg Neutrophils % Seg Neuts % (Manual) Lymphocytes % (Manual) Monocytes % (Manual) Eosinophils % (Manual) Basophils % (Manual) Nucleated RBC % Seg Neutrophils # Seg Neutrophils # Man Lymphocytes # (Manual) Monocytes # (Manual) Eosinophils # (Manual) Basophils # (Manual) PT INR Fibrinogen dRVVT Confirm Interp Factor V Activity POC ABG pH POC ABG pCO2 POC ABG pO2 ABG pO2 ABG HCO3 ABG Base Excess ABG Hemoglobin Oxyhemoglobin Sodium 133 L Potassium 3.5 L Chloride 96.1 L Carbon Dioxide 18 L BUN 76 H Creatinine 2.1 H Glucose POC Glucose 133 H 138 H Lactic Acid Calcium 8.3 L Phosphorus Magnesium Direct Bilirubin AST ALT Alkaline Phosphatase Lactate Dehydrogenase Troponin T C-Reactive Protein Total Protein Albumin Prealbumin Triglycerides Cholesterol LDL Cholesterol Direct HDL Cholesterol Urine pH Urine WBC (Auto) Urine Creatinine Urine Total Protein Fluid Total Protein Vancomycin Trough Rheumatoid Factor Complement C4 Miscellaneous Test Crossmatch 10/23/16 10/23/16 10/24/16 16:53 23:37 04:00 WBC RBC Hgb Hct MCV MCH MCHC RDW Plt Count Lymph % (Auto) [place] % (Auto) Lymph # [place] # Baso # Seg Neutrophils % Seg Neuts % (Manual) Lymphocytes % (Manual) Monocytes % (Manual) Eosinophils % (Manual) Basophils % (Manual) Nucleated RBC % Seg Neutrophils # Seg Neutrophils # Man Lymphocytes # (Manual) Monocytes # (Manual) Eosinophils # (Manual) Basophils # (Manual) PT INR Fibrinogen dRVVT Confirm Interp Factor V Activity POC ABG pH POC ABG pCO2 POC ABG pO2 ABG pO2 ABG HCO3 ABG Base Excess ABG Hemoglobin Oxyhemoglobin Sodium 131 L Potassium Chloride 94.5 L Carbon Dioxide 19 L BUN 97 H Creatinine 2.6 H Glucose 110 H POC Glucose 125 H 123 H Lactic Acid Calcium 8.3 L Phosphorus Magnesium Direct Bilirubin AST ALT Alkaline Phosphatase Lactate Dehydrogenase Troponin T C-Reactive Protein Total Protein Albumin Prealbumin Triglycerides Cholesterol LDL Cholesterol Direct HDL Cholesterol Urine pH Urine WBC (Auto) Urine Creatinine Urine Total Protein Fluid Total Protein Vancomycin Trough Rheumatoid Factor Complement C4 Miscellaneous Test Crossmatch 10/24/16 10/24/16 10/24/16 07:49 11:39 17:52 WBC RBC Hgb 6.0 L Hct 19.7 L* MCV MCH MCHC RDW Plt Count Lymph % (Auto) [place] % (Auto) Lymph # [place] # Baso # Seg Neutrophils % Seg Neuts % (Manual) Lymphocytes % (Manual) Monocytes % (Manual) Eosinophils % (Manual) Basophils % (Manual) Nucleated RBC % Seg Neutrophils # Seg Neutrophils # Man Lymphocytes # (Manual) Monocytes # (Manual) Eosinophils # (Manual) Basophils # (Manual) PT INR Fibrinogen dRVVT Confirm Interp Factor V Activity POC ABG pH POC ABG pCO2 POC ABG pO2 ABG pO2 ABG HCO3 ABG Base Excess ABG Hemoglobin Oxyhemoglobin Sodium Potassium Chloride Carbon Dioxide BUN Creatinine Glucose POC Glucose 106 H 158 H Lactic Acid Calcium Phosphorus Magnesium Direct Bilirubin AST ALT Alkaline Phosphatase Lactate Dehydrogenase Troponin T C-Reactive Protein Total Protein Albumin Prealbumin Triglycerides Cholesterol LDL Cholesterol Direct HDL Cholesterol Urine pH Urine WBC (Auto) Urine Creatinine Urine Total Protein Fluid Total Protein Vancomycin Trough Rheumatoid Factor Complement C4 Miscellaneous Test Crossmatch 10/24/16 10/24/16 10/24/16 20:00 22:27 Unknown WBC RBC Hgb 9.4 L D Hct 27.5 L D MCV MCH MCHC RDW Plt Count Lymph % (Auto) [place] % (Auto) Lymph # [place] # Baso # Seg Neutrophils % Seg Neuts % (Manual) Lymphocytes % (Manual) Monocytes % (Manual) Eosinophils % (Manual) Basophils % (Manual) Nucleated RBC % Seg Neutrophils # Seg Neutrophils # Man Lymphocytes # (Manual) Monocytes # (Manual) Eosinophils # (Manual) Basophils # (Manual) PT INR Fibrinogen dRVVT Confirm Interp Factor V Activity POC ABG pH POC ABG pCO2 POC ABG pO2 ABG pO2 ABG HCO3 ABG Base Excess ABG Hemoglobin Oxyhemoglobin Sodium Potassium Chloride Carbon Dioxide BUN Creatinine Glucose POC Glucose 125 H Lactic Acid Calcium Phosphorus Magnesium Direct Bilirubin AST ALT Alkaline Phosphatase Lactate Dehydrogenase Troponin T C-Reactive Protein Total Protein Albumin Prealbumin Triglycerides Cholesterol LDL Cholesterol Direct HDL Cholesterol Urine pH Urine WBC (Auto) Urine Creatinine Urine Total Protein Fluid Total Protein Vancomycin Trough Rheumatoid Factor Complement C4 Miscellaneous Test Crossmatch See Detail 10/25/16 10/25/16 10/25/16 04:00 04:00 04:00 WBC 14.2 H RBC 2.98 L Hgb 9.0 L Hct 26.2 L MCV MCH MCHC RDW 16.6 H Plt Count Lymph % (Auto) [place] % (Auto) 10.7 H Lymph # [place] # 1.5 H Baso # Seg Neutrophils % 73.6 H Seg Neuts % (Manual) Lymphocytes % (Manual) Monocytes % (Manual) Eosinophils % (Manual) Basophils % (Manual) Nucleated RBC % Seg Neutrophils # 10.5 H Seg Neutrophils # Man Lymphocytes # (Manual) Monocytes # (Manual) Eosinophils # (Manual) Basophils # (Manual) PT INR Fibrinogen dRVVT Confirm Interp Factor V Activity POC ABG pH POC ABG pCO2 POC ABG pO2 ABG pO2 ABG HCO3 ABG Base Excess ABG Hemoglobin Oxyhemoglobin Sodium 132 L Potassium Chloride 94.7 L Carbon Dioxide BUN 51 H Creatinine 1.6 H Glucose 130 H POC Glucose Lactic Acid Calcium 8.3 L Phosphorus 1.60 L D Magnesium Direct Bilirubin AST ALT Alkaline Phosphatase Lactate Dehydrogenase Troponin T C-Reactive Protein Total Protein Albumin Prealbumin Triglycerides Cholesterol LDL Cholesterol Direct HDL Cholesterol Urine pH Urine WBC (Auto) Urine Creatinine Urine Total Protein Fluid Total Protein Vancomycin Trough Rheumatoid Factor Complement C4 Miscellaneous Test Crossmatch 10/25/16 10/25/16 10/25/16 04:32 11:48 17:22 WBC RBC Hgb Hct MCV MCH MCHC RDW Plt Count Lymph % (Auto) [place] % (Auto) Lymph # [place] # Baso # Seg Neutrophils % Seg Neuts % (Manual) Lymphocytes % (Manual) Monocytes % (Manual) Eosinophils % (Manual) Basophils % (Manual) Nucleated RBC % Seg Neutrophils # Seg Neutrophils # Man Lymphocytes # (Manual) Monocytes # (Manual) Eosinophils # (Manual) Basophils # (Manual) PT INR Fibrinogen dRVVT Confirm Interp Factor V Activity POC ABG pH POC ABG pCO2 POC ABG pO2 ABG pO2 ABG HCO3 ABG Base Excess ABG Hemoglobin Oxyhemoglobin Sodium Potassium Chloride Carbon Dioxide BUN Creatinine Glucose POC Glucose 124 H 171 H 120 H Lactic Acid Calcium Phosphorus Magnesium Direct Bilirubin AST ALT Alkaline Phosphatase Lactate Dehydrogenase Troponin T C-Reactive Protein Total Protein Albumin Prealbumin Triglycerides Cholesterol LDL Cholesterol Direct HDL Cholesterol Urine pH Urine WBC (Auto) Urine Creatinine Urine Total Protein Fluid Total Protein Vancomycin Trough Rheumatoid Factor Complement C4 Miscellaneous Test Crossmatch 10/26/16 10/26/16 10/26/16 04:54 07:06 07:06 WBC 16.9 H RBC 3.06 L Hgb 9.1 L Hct 26.9 L MCV MCH MCHC RDW 16.9 H Plt Count Lymph % (Auto) [place] % (Auto) Lymph # [place] # Baso # Seg Neutrophils % Seg Neuts % (Manual) 71.0 H Lymphocytes % (Manual) 5.0 L Monocytes % (Manual) 12.0 H Eosinophils % (Manual) Basophils % (Manual) Nucleated RBC % Seg Neutrophils # Seg Neutrophils # Man 12.0 H Lymphocytes # (Manual) 0.8 L Monocytes # (Manual) 2.0 H Eosinophils # (Manual) Basophils # (Manual) PT INR Fibrinogen dRVVT Confirm Interp Factor V Activity POC ABG pH POC ABG pCO2 POC ABG pO2 ABG pO2 ABG HCO3 ABG Base Excess ABG Hemoglobin Oxyhemoglobin Sodium 135 L Potassium Chloride 97.1 L Carbon Dioxide BUN 73 H Creatinine 2.2 H Glucose 117 H POC Glucose 123 H Lactic Acid Calcium Phosphorus 1.70 L Magnesium Direct Bilirubin AST ALT Alkaline Phosphatase Lactate Dehydrogenase Troponin T C-Reactive Protein Total Protein Albumin Prealbumin Triglycerides Cholesterol LDL Cholesterol Direct HDL Cholesterol Urine pH Urine WBC (Auto) Urine Creatinine Urine Total Protein Fluid Total Protein Vancomycin Trough Rheumatoid Factor Complement C4 Miscellaneous Test Crossmatch 10/26/16 10/26/16 10/26/16 12:12 17:29 23:42 WBC RBC Hgb Hct MCV MCH MCHC RDW Plt Count Lymph % (Auto) [place] % (Auto) Lymph # [place] # Baso # Seg Neutrophils % Seg Neuts % (Manual) Lymphocytes % (Manual) Monocytes % (Manual) Eosinophils % (Manual) Basophils % (Manual) Nucleated RBC % Seg Neutrophils # Seg Neutrophils # Man Lymphocytes # (Manual) Monocytes # (Manual) Eosinophils # (Manual) Basophils # (Manual) PT INR Fibrinogen dRVVT Confirm Interp Factor V Activity POC ABG pH POC ABG pCO2 POC ABG pO2 ABG pO2 ABG HCO3 ABG Base Excess ABG Hemoglobin Oxyhemoglobin Sodium Potassium Chloride Carbon Dioxide BUN Creatinine Glucose POC Glucose 126 H 161 H 118 H Lactic Acid Calcium Phosphorus Magnesium Direct Bilirubin AST ALT Alkaline Phosphatase Lactate Dehydrogenase Troponin T C-Reactive Protein Total Protein Albumin Prealbumin Triglycerides Cholesterol LDL Cholesterol Direct HDL Cholesterol Urine pH Urine WBC (Auto) Urine Creatinine Urine Total Protein Fluid Total Protein Vancomycin Trough Rheumatoid Factor Complement C4 Miscellaneous Test Crossmatch 10/27/16 10/27/16 10/27/16 05:03 06:30 06:30 WBC 13.9 H RBC 3.09 L Hgb 9.2 L Hct 27.5 L MCV MCH MCHC RDW 17.0 H Plt Count Lymph % (Auto) [place] % (Auto) Lymph # [place] # Baso # Seg Neutrophils % Seg Neuts % (Manual) 78.0 H Lymphocytes % (Manual) Monocytes % (Manual) Eosinophils % (Manual) Basophils % (Manual) Nucleated RBC % 2.0 H Seg Neutrophils # Seg Neutrophils # Man 10.8 H Lymphocytes # (Manual) Monocytes # (Manual) 1.0 H Eosinophils # (Manual) Basophils # (Manual) PT INR Fibrinogen dRVVT Confirm Interp Factor V Activity POC ABG pH POC ABG pCO2 POC ABG pO2 ABG pO2 ABG HCO3 ABG Base Excess ABG Hemoglobin Oxyhemoglobin Sodium Potassium Chloride Carbon Dioxide BUN 40 H Creatinine 1.5 H Glucose 135 H POC Glucose 107 H Lactic Acid Calcium 8.3 L Phosphorus 1.30 L D Magnesium Direct Bilirubin AST ALT Alkaline Phosphatase Lactate Dehydrogenase Troponin T C-Reactive Protein Total Protein Albumin Prealbumin Triglycerides Cholesterol LDL Cholesterol Direct HDL Cholesterol Urine pH Urine WBC (Auto) Urine Creatinine Urine Total Protein Fluid Total Protein Vancomycin Trough Rheumatoid Factor Complement C4 Miscellaneous Test Crossmatch 10/27/16 10/27/16 10/27/16 13:27 18:07 23:40 WBC RBC Hgb Hct MCV MCH MCHC RDW Plt Count Lymph % (Auto) [place] % (Auto) Lymph # [place] # Baso # Seg Neutrophils % Seg Neuts % (Manual) Lymphocytes % (Manual) Monocytes % (Manual) Eosinophils % (Manual) Basophils % (Manual) Nucleated RBC % Seg Neutrophils # Seg Neutrophils # Man Lymphocytes # (Manual) Monocytes # (Manual) Eosinophils # (Manual) Basophils # (Manual) PT INR Fibrinogen dRVVT Confirm Interp Factor V Activity POC ABG pH POC ABG pCO2 POC ABG pO2 ABG pO2 ABG HCO3 ABG Base Excess ABG Hemoglobin Oxyhemoglobin Sodium Potassium Chloride Carbon Dioxide BUN Creatinine Glucose POC Glucose 117 H 121 H 118 H Lactic Acid Calcium Phosphorus Magnesium Direct Bilirubin AST ALT Alkaline Phosphatase Lactate Dehydrogenase Troponin T C-Reactive Protein Total Protein Albumin Prealbumin Triglycerides Cholesterol LDL Cholesterol Direct HDL Cholesterol Urine pH Urine WBC (Auto) Urine Creatinine Urine Total Protein Fluid Total Protein Vancomycin Trough Rheumatoid Factor Complement C4 Miscellaneous Test Crossmatch 10/28/16 10/28/16 10/28/16 05:48 06:45 06:45 WBC 14.7 H RBC 3.05 L Hgb 9.0 L Hct 26.9 L MCV MCH MCHC RDW 16.8 H Plt Count Lymph % (Auto) 8.2 L [place] % (Auto) 8.4 H Lymph # [place] # 1.2 H Baso # Seg Neutrophils % 81.9 H Seg Neuts % (Manual) Lymphocytes % (Manual) Monocytes % (Manual) Eosinophils % (Manual) Basophils % (Manual) Nucleated RBC % Seg Neutrophils # 12.1 H Seg Neutrophils # Man Lymphocytes # (Manual) Monocytes # (Manual) Eosinophils # (Manual) Basophils # (Manual) PT INR Fibrinogen dRVVT Confirm Interp Factor V Activity POC ABG pH POC ABG pCO2 POC ABG pO2 ABG pO2 ABG HCO3 ABG Base Excess ABG Hemoglobin Oxyhemoglobin Sodium Potassium Chloride Carbon Dioxide BUN 60 H Creatinine 1.9 H Glucose 120 H POC Glucose 114 H Lactic Acid Calcium Phosphorus Magnesium Direct Bilirubin AST ALT Alkaline Phosphatase Lactate Dehydrogenase Troponin T C-Reactive Protein Total Protein Albumin Prealbumin Triglycerides Cholesterol LDL Cholesterol Direct HDL Cholesterol Urine pH Urine WBC (Auto) Urine Creatinine Urine Total Protein Fluid Total Protein Vancomycin Trough Rheumatoid Factor Complement C4 Miscellaneous Test Crossmatch 10/28/16 10/28/16 10/29/16 17:08 23:50 05:10 WBC RBC Hgb Hct MCV MCH MCHC RDW Plt Count Lymph % (Auto) [place] % (Auto) Lymph # [place] # Baso # Seg Neutrophils % Seg Neuts % (Manual) Lymphocytes % (Manual) Monocytes % (Manual) Eosinophils % (Manual) Basophils % (Manual) Nucleated RBC % Seg Neutrophils # Seg Neutrophils # Man Lymphocytes # (Manual) Monocytes # (Manual) Eosinophils # (Manual) Basophils # (Manual) PT INR Fibrinogen dRVVT Confirm Interp Factor V Activity POC ABG pH POC ABG pCO2 POC ABG pO2 ABG pO2 ABG HCO3 ABG Base Excess ABG Hemoglobin Oxyhemoglobin Sodium Potassium Chloride Carbon Dioxide BUN Creatinine Glucose POC Glucose 109 H 110 H 124 H Lactic Acid Calcium Phosphorus Magnesium Direct Bilirubin AST ALT Alkaline Phosphatase Lactate Dehydrogenase Troponin T C-Reactive Protein Total Protein Albumin Prealbumin Triglycerides Cholesterol LDL Cholesterol Direct HDL Cholesterol Urine pH Urine WBC (Auto) Urine Creatinine Urine Total Protein Fluid Total Protein Vancomycin Trough Rheumatoid Factor Complement C4 Miscellaneous Test Crossmatch 10/29/16 10/29/16 10/29/16 07:45 07:45 12:19 WBC 14.7 H RBC 3.15 L Hgb 9.3 L Hct 28.9 L MCV MCH MCHC RDW 17.0 H Plt Count Lymph % (Auto) 11.9 L [place] % (Auto) 8.6 H Lymph # [place] # 1.3 H Baso # Seg Neutrophils % 78.1 H Seg Neuts % (Manual) Lymphocytes % (Manual) Monocytes % (Manual) Eosinophils % (Manual) Basophils % (Manual) Nucleated RBC % Seg Neutrophils # 11.4 H Seg Neutrophils # Man Lymphocytes # (Manual) Monocytes # (Manual) Eosinophils # (Manual) Basophils # (Manual) PT INR Fibrinogen dRVVT Confirm Interp Factor V Activity POC ABG pH POC ABG pCO2 POC ABG pO2 ABG pO2 ABG HCO3 ABG Base Excess ABG Hemoglobin Oxyhemoglobin Sodium Potassium 5.1 H Chloride Carbon Dioxide 19 L BUN 78 H Creatinine 2.2 H Glucose 116 H POC Glucose 118 H Lactic Acid Calcium Phosphorus Magnesium Direct Bilirubin AST ALT Alkaline Phosphatase Lactate Dehydrogenase Troponin T C-Reactive Protein Total Protein Albumin Prealbumin Triglycerides Cholesterol LDL Cholesterol Direct HDL Cholesterol Urine pH Urine WBC (Auto) Urine Creatinine Urine Total Protein Fluid Total Protein Vancomycin Trough Rheumatoid Factor Complement C4 Miscellaneous Test Crossmatch 10/29/16 10/30/16 10/30/16 17:49 01:52 03:28 WBC RBC Hgb Hct MCV MCH MCHC RDW Plt Count Lymph % (Auto) [place] % (Auto) Lymph # [place] # Baso # Seg Neutrophils % Seg Neuts % (Manual) Lymphocytes % (Manual) Monocytes % (Manual) Eosinophils % (Manual) Basophils % (Manual) Nucleated RBC % Seg Neutrophils # Seg Neutrophils # Man Lymphocytes # (Manual) Monocytes # (Manual) Eosinophils # (Manual) Basophils # (Manual) PT INR Fibrinogen dRVVT Confirm Interp Factor V Activity POC ABG pH POC ABG pCO2 POC ABG pO2 ABG pO2 ABG HCO3 ABG Base Excess ABG Hemoglobin Oxyhemoglobin Sodium Potassium 5.4 H Chloride 97.5 L Carbon Dioxide 19 L BUN 90 H Creatinine 2.5 H Glucose POC Glucose 120 H 129 H Lactic Acid Calcium Phosphorus 5.20 H Magnesium Direct Bilirubin AST ALT Alkaline Phosphatase Lactate Dehydrogenase Troponin T C-Reactive Protein Total Protein Albumin Prealbumin Triglycerides Cholesterol LDL Cholesterol Direct HDL Cholesterol Urine pH Urine WBC (Auto) Urine Creatinine Urine Total Protein Fluid Total Protein Vancomycin Trough Rheumatoid Factor Complement C4 Miscellaneous Test Crossmatch 10/30/16 10/30/16 10/30/16 03:28 08:19 08:19 WBC 11.6 H 15.9 H RBC 2.75 L 2.82 L Hgb 7.9 L 8.3 L Hct 24.2 L 25.2 L MCV MCH MCHC RDW 16.7 H 17.2 H Plt Count Lymph % (Auto) [place] % (Auto) 9.8 H Lymph # [place] # 1.1 H Baso # Seg Neutrophils % 74.2 H Seg Neuts % (Manual) Lymphocytes % (Manual) Monocytes % (Manual) Eosinophils % (Manual) Basophils % (Manual) Nucleated RBC % Seg Neutrophils # 8.6 H Seg Neutrophils # Man Lymphocytes # (Manual) Monocytes # (Manual) Eosinophils # (Manual) Basophils # (Manual) PT INR Fibrinogen dRVVT Confirm Interp Factor V Activity POC ABG pH POC ABG pCO2 POC ABG pO2 ABG pO2 ABG HCO3 ABG Base Excess ABG Hemoglobin Oxyhemoglobin Sodium Potassium 5.3 H Chloride 97.4 L Carbon Dioxide 19 L BUN 93 H Creatinine 2.6 H Glucose POC Glucose Lactic Acid Calcium Phosphorus Magnesium Direct Bilirubin AST ALT Alkaline Phosphatase Lactate Dehydrogenase Troponin T C-Reactive Protein Total Protein Albumin Prealbumin Triglycerides Cholesterol LDL Cholesterol Direct HDL Cholesterol Urine pH Urine WBC (Auto) Urine Creatinine Urine Total Protein Fluid Total Protein Vancomycin Trough Rheumatoid Factor Complement C4 Miscellaneous Test Crossmatch 10/30/16 10/30/16 10/31/16 17:11 23:56 00:40 WBC RBC Hgb Hct MCV MCH MCHC RDW Plt Count Lymph % (Auto) [place] % (Auto) Lymph # [place] # Baso # Seg Neutrophils % Seg Neuts % (Manual) Lymphocytes % (Manual) Monocytes % (Manual) Eosinophils % (Manual) Basophils % (Manual) Nucleated RBC % Seg Neutrophils # Seg Neutrophils # Man Lymphocytes # (Manual) Monocytes # (Manual) Eosinophils # (Manual) Basophils # (Manual) PT INR Fibrinogen dRVVT Confirm Interp Factor V Activity POC ABG pH POC ABG pCO2 POC ABG pO2 ABG pO2 ABG HCO3 ABG Base Excess ABG Hemoglobin Oxyhemoglobin Sodium Potassium Chloride Carbon Dioxide BUN Creatinine Glucose POC Glucose 106 H 117 H 120 H Lactic Acid Calcium Phosphorus Magnesium Direct Bilirubin AST ALT Alkaline Phosphatase Lactate Dehydrogenase Troponin T C-Reactive Protein Total Protein Albumin Prealbumin Triglycerides Cholesterol LDL Cholesterol Direct HDL Cholesterol Urine pH Urine WBC (Auto) Urine Creatinine Urine Total Protein Fluid Total Protein Vancomycin Trough Rheumatoid Factor Complement C4 Miscellaneous Test Crossmatch 10/31/16 10/31/16 10/31/16 05:43 07:15 07:15 WBC 12.1 H RBC 2.63 L Hgb 7.7 L Hct 23.3 L MCV MCH MCHC RDW 16.7 H Plt Count Lymph % (Auto) 11.7 L [place] % (Auto) 7.7 H Lymph # [place] # 0.9 H Baso # Seg Neutrophils % 78.0 H Seg Neuts % (Manual) Lymphocytes % (Manual) Monocytes % (Manual) Eosinophils % (Manual) Basophils % (Manual) Nucleated RBC % Seg Neutrophils # 9.4 H Seg Neutrophils # Man Lymphocytes # (Manual) Monocytes # (Manual) Eosinophils # (Manual) Basophils # (Manual) PT INR Fibrinogen dRVVT Confirm Interp Factor V Activity POC ABG pH POC ABG pCO2 POC ABG pO2 ABG pO2 ABG HCO3 ABG Base Excess ABG Hemoglobin Oxyhemoglobin Sodium Potassium Chloride 96.4 L Carbon Dioxide 21 L BUN 99 H Creatinine 2.6 H Glucose 144 H POC Glucose 125 H Lactic Acid Calcium Phosphorus 4.80 H Magnesium Direct Bilirubin AST ALT Alkaline Phosphatase Lactate Dehydrogenase Troponin T C-Reactive Protein Total Protein Albumin Prealbumin Triglycerides Cholesterol LDL Cholesterol Direct HDL Cholesterol Urine pH Urine WBC (Auto) Urine Creatinine Urine Total Protein Fluid Total Protein Vancomycin Trough Rheumatoid Factor Complement C4 Miscellaneous Test Crossmatch 10/31/16 10/31/16 11/01/16 11:46 18:34 00:20 WBC RBC Hgb Hct MCV MCH MCHC RDW Plt Count Lymph % (Auto) [place] % (Auto) Lymph # [place] # Baso # Seg Neutrophils % Seg Neuts % (Manual) Lymphocytes % (Manual) Monocytes % (Manual) Eosinophils % (Manual) Basophils % (Manual) Nucleated RBC % Seg Neutrophils # Seg Neutrophils # Man Lymphocytes # (Manual) Monocytes # (Manual) Eosinophils # (Manual) Basophils # (Manual) PT INR Fibrinogen dRVVT Confirm Interp Factor V Activity POC ABG pH POC ABG pCO2 POC ABG pO2 ABG pO2 ABG HCO3 ABG Base Excess ABG Hemoglobin Oxyhemoglobin Sodium Potassium Chloride Carbon Dioxide BUN Creatinine Glucose POC Glucose 159 H 140 H 132 H Lactic Acid Calcium Phosphorus Magnesium Direct Bilirubin AST ALT Alkaline Phosphatase Lactate Dehydrogenase Troponin T C-Reactive Protein Total Protein Albumin Prealbumin Triglycerides Cholesterol LDL Cholesterol Direct HDL Cholesterol Urine pH Urine WBC (Auto) Urine Creatinine Urine Total Protein Fluid Total Protein Vancomycin Trough Rheumatoid Factor Complement C4 Miscellaneous Test Crossmatch 11/01/16 11/01/16 11/01/16 04:55 04:55 06:11 WBC 11.2 H RBC 2.68 L Hgb 7.5 L Hct 23.7 L MCV MCH MCHC RDW 16.1 H Plt Count Lymph % (Auto) [place] % (Auto) 9.8 H Lymph # [place] # 1.1 H Baso # Seg Neutrophils % 70.8 H Seg Neuts % (Manual) Lymphocytes % (Manual) Monocytes % (Manual) Eosinophils % (Manual) Basophils % (Manual) Nucleated RBC % Seg Neutrophils # 7.9 H Seg Neutrophils # Man Lymphocytes # (Manual) Monocytes # (Manual) Eosinophils # (Manual) Basophils # (Manual) PT INR Fibrinogen dRVVT Confirm Interp Factor V Activity POC ABG pH POC ABG pCO2 POC ABG pO2 ABG pO2 ABG HCO3 ABG Base Excess ABG Hemoglobin Oxyhemoglobin Sodium Potassium 3.3 L D Chloride Carbon Dioxide BUN 61 H Creatinine 1.9 H Glucose 114 H POC Glucose 115 H Lactic Acid Calcium Phosphorus 1.80 L D Magnesium Direct Bilirubin AST ALT Alkaline Phosphatase Lactate Dehydrogenase Troponin T C-Reactive Protein Total Protein Albumin Prealbumin Triglycerides Cholesterol LDL Cholesterol Direct HDL Cholesterol Urine pH Urine WBC (Auto) Urine Creatinine Urine Total Protein Fluid Total Protein Vancomycin Trough Rheumatoid Factor Complement C4 Miscellaneous Test Crossmatch 11/01/16 11/01/16 11/01/16 12:29 18:23 23:58 WBC RBC Hgb Hct MCV MCH MCHC RDW Plt Count Lymph % (Auto) [place] % (Auto) Lymph # [place] # Baso # Seg Neutrophils % Seg Neuts % (Manual) Lymphocytes % (Manual) Monocytes % (Manual) Eosinophils % (Manual) Basophils % (Manual) Nucleated RBC % Seg Neutrophils # Seg Neutrophils # Man Lymphocytes # (Manual) Monocytes # (Manual) Eosinophils # (Manual) Basophils # (Manual) PT INR Fibrinogen dRVVT Confirm Interp Factor V Activity POC ABG pH POC ABG pCO2 POC ABG pO2 ABG pO2 ABG HCO3 ABG Base Excess ABG Hemoglobin Oxyhemoglobin Sodium Potassium Chloride Carbon Dioxide BUN Creatinine Glucose POC Glucose 142 H 143 H 128 H Lactic Acid Calcium Phosphorus Magnesium Direct Bilirubin AST ALT Alkaline Phosphatase Lactate Dehydrogenase Troponin T C-Reactive Protein Total Protein Albumin Prealbumin Triglycerides Cholesterol LDL Cholesterol Direct HDL Cholesterol Urine pH Urine WBC (Auto) Urine Creatinine Urine Total Protein Fluid Total Protein Vancomycin Trough Rheumatoid Factor Complement C4 Miscellaneous Test Crossmatch 11/02/16 11/02/16 11/02/16 04:16 05:29 11:58 WBC RBC Hgb Hct MCV MCH MCHC RDW Plt Count Lymph % (Auto) [place] % (Auto) Lymph # [place] # Baso # Seg Neutrophils % Seg Neuts % (Manual) Lymphocytes % (Manual) Monocytes % (Manual) Eosinophils % (Manual) Basophils % (Manual) Nucleated RBC % Seg Neutrophils # Seg Neutrophils # Man Lymphocytes # (Manual) Monocytes # (Manual) Eosinophils # (Manual) Basophils # (Manual) PT INR Fibrinogen dRVVT Confirm Interp Factor V Activity POC ABG pH POC ABG pCO2 POC ABG pO2 ABG pO2 ABG HCO3 ABG Base Excess ABG Hemoglobin Oxyhemoglobin Sodium Potassium 3.1 L Chloride Carbon Dioxide BUN 73 H Creatinine 2.3 H Glucose 112 H POC Glucose 135 H 149 H Lactic Acid Calcium Phosphorus Magnesium Direct Bilirubin AST ALT Alkaline Phosphatase Lactate Dehydrogenase Troponin T C-Reactive Protein Total Protein Albumin Prealbumin Triglycerides Cholesterol LDL Cholesterol Direct HDL Cholesterol Urine pH Urine WBC (Auto) Urine Creatinine Urine Total Protein Fluid Total Protein Vancomycin Trough Rheumatoid Factor Complement C4 Miscellaneous Test Crossmatch 11/02/16 11/02/16 11/03/16 17:42 22:54 06:00 WBC RBC Hgb Hct MCV MCH MCHC RDW Plt Count Lymph % (Auto) [place] % (Auto) Lymph # [place] # Baso # Seg Neutrophils % Seg Neuts % (Manual) Lymphocytes % (Manual) Monocytes % (Manual) Eosinophils % (Manual) Basophils % (Manual) Nucleated RBC % Seg Neutrophils # Seg Neutrophils # Man Lymphocytes # (Manual) Monocytes # (Manual) Eosinophils # (Manual) Basophils # (Manual) PT INR Fibrinogen dRVVT Confirm Interp Factor V Activity POC ABG pH POC ABG pCO2 POC ABG pO2 ABG pO2 ABG HCO3 ABG Base Excess ABG Hemoglobin Oxyhemoglobin Sodium Potassium Chloride 96.7 L Carbon Dioxide BUN 41 H Creatinine 1.5 H Glucose 145 H POC Glucose 182 H 115 H Lactic Acid Calcium Phosphorus 1.60 L D Magnesium 1.50 L Direct Bilirubin AST ALT Alkaline Phosphatase Lactate Dehydrogenase Troponin T C-Reactive Protein Total Protein Albumin Prealbumin Triglycerides Cholesterol LDL Cholesterol Direct HDL Cholesterol Urine pH Urine WBC (Auto) Urine Creatinine Urine Total Protein Fluid Total Protein Vancomycin Trough Rheumatoid Factor Complement C4 Miscellaneous Test Crossmatch 11/03/16 11/03/16 11/03/16 11:53 17:45 23:37 WBC RBC Hgb Hct MCV MCH MCHC RDW Plt Count Lymph % (Auto) [place] % (Auto) Lymph # [place] # Baso # Seg Neutrophils % Seg Neuts % (Manual) Lymphocytes % (Manual) Monocytes % (Manual) Eosinophils % (Manual) Basophils % (Manual) Nucleated RBC % Seg Neutrophils # Seg Neutrophils # Man Lymphocytes # (Manual) Monocytes # (Manual) Eosinophils # (Manual) Basophils # (Manual) PT INR Fibrinogen dRVVT Confirm Interp Factor V Activity POC ABG pH POC ABG pCO2 POC ABG pO2 ABG pO2 ABG HCO3 ABG Base Excess ABG Hemoglobin Oxyhemoglobin Sodium Potassium Chloride Carbon Dioxide BUN Creatinine Glucose POC Glucose 131 H 134 H 113 H Lactic Acid Calcium Phosphorus Magnesium Direct Bilirubin AST ALT Alkaline Phosphatase Lactate Dehydrogenase Troponin T C-Reactive Protein Total Protein Albumin Prealbumin Triglycerides Cholesterol LDL Cholesterol Direct HDL Cholesterol Urine pH Urine WBC (Auto) Urine Creatinine Urine Total Protein Fluid Total Protein Vancomycin Trough Rheumatoid Factor Complement C4 Miscellaneous Test Crossmatch 11/04/16 11/04/16 11/04/16 05:41 06:00 12:10 WBC RBC Hgb Hct MCV MCH MCHC RDW Plt Count Lymph % (Auto) [place] % (Auto) Lymph # [place] # Baso # Seg Neutrophils % Seg Neuts % (Manual) Lymphocytes % (Manual) Monocytes % (Manual) Eosinophils % (Manual) Basophils % (Manual) Nucleated RBC % Seg Neutrophils # Seg Neutrophils # Man Lymphocytes # (Manual) Monocytes # (Manual) Eosinophils # (Manual) Basophils # (Manual) PT INR Fibrinogen dRVVT Confirm Interp Factor V Activity POC ABG pH POC ABG pCO2 POC ABG pO2 ABG pO2 ABG HCO3 ABG Base Excess ABG Hemoglobin Oxyhemoglobin Sodium Potassium Chloride 96.7 L Carbon Dioxide BUN 52 H Creatinine 1.9 H Glucose 126 H POC Glucose 137 H 191 H Lactic Acid Calcium Phosphorus Magnesium Direct Bilirubin AST ALT Alkaline Phosphatase Lactate Dehydrogenase Troponin T C-Reactive Protein Total Protein Albumin Prealbumin Triglycerides Cholesterol LDL Cholesterol Direct HDL Cholesterol Urine pH Urine WBC (Auto) Urine Creatinine Urine Total Protein Fluid Total Protein Vancomycin Trough Rheumatoid Factor Complement C4 Miscellaneous Test Crossmatch 11/04/16 11/05/16 11/05/16 22:57 03:10 05:10 WBC RBC Hgb Hct MCV MCH MCHC RDW Plt Count Lymph % (Auto) [place] % (Auto) Lymph # [place] # Baso # Seg Neutrophils % Seg Neuts % (Manual) Lymphocytes % (Manual) Monocytes % (Manual) Eosinophils % (Manual) Basophils % (Manual) Nucleated RBC % Seg Neutrophils # Seg Neutrophils # Man Lymphocytes # (Manual) Monocytes # (Manual) Eosinophils # (Manual) Basophils # (Manual) PT INR Fibrinogen dRVVT Confirm Interp Factor V Activity POC ABG pH POC ABG pCO2 POC ABG pO2 ABG pO2 ABG HCO3 ABG Base Excess ABG Hemoglobin Oxyhemoglobin Sodium 136 L Potassium Chloride 97.2 L Carbon Dioxide BUN 32 H Creatinine 1.3 H Glucose 123 H POC Glucose 125 H 108 H Lactic Acid Calcium 7.8 L Phosphorus Magnesium Direct Bilirubin AST ALT Alkaline Phosphatase Lactate Dehydrogenase Troponin T C-Reactive Protein Total Protein Albumin Prealbumin Triglycerides Cholesterol LDL Cholesterol Direct HDL Cholesterol Urine pH Urine WBC (Auto) Urine Creatinine Urine Total Protein Fluid Total Protein Vancomycin Trough Rheumatoid Factor Complement C4 Miscellaneous Test Crossmatch 11/05/16 11/05/16 11/05/16 12:23 13:09 13:25 WBC RBC Hgb Hct MCV MCH MCHC RDW Plt Count Lymph % (Auto) [place] % (Auto) Lymph # [place] # Baso # Seg Neutrophils % Seg Neuts % (Manual) Lymphocytes % (Manual) Monocytes % (Manual) Eosinophils % (Manual) Basophils % (Manual) Nucleated RBC % Seg Neutrophils # Seg Neutrophils # Man Lymphocytes # (Manual) Monocytes # (Manual) Eosinophils # (Manual) Basophils # (Manual) PT INR Fibrinogen dRVVT Confirm Interp Factor V Activity POC ABG pH POC ABG pCO2 POC ABG pO2 ABG pO2 ABG HCO3 ABG Base Excess ABG Hemoglobin Oxyhemoglobin Sodium Potassium Chloride Carbon Dioxide BUN Creatinine Glucose POC Glucose 124 H Lactic Acid Calcium Phosphorus Magnesium Direct Bilirubin AST ALT Alkaline Phosphatase Lactate Dehydrogenase Troponin T C-Reactive Protein 11.40 H Total Protein Albumin Prealbumin Triglycerides Cholesterol LDL Cholesterol Direct HDL Cholesterol Urine pH 9.0 H Urine WBC (Auto) Urine Creatinine Urine Total Protein Fluid Total Protein Vancomycin Trough Rheumatoid Factor Complement C4 Miscellaneous Test Crossmatch 11/05/16 11/05/16 11/05/16 13:25 17:54 23:42 WBC RBC Hgb Hct MCV MCH MCHC RDW Plt Count Lymph % (Auto) [place] % (Auto) Lymph # [place] # Baso # Seg Neutrophils % Seg Neuts % (Manual) Lymphocytes % (Manual) Monocytes % (Manual) Eosinophils % (Manual) Basophils % (Manual) Nucleated RBC % Seg Neutrophils # Seg Neutrophils # Man Lymphocytes # (Manual) Monocytes # (Manual) Eosinophils # (Manual) Basophils # (Manual) PT INR Fibrinogen dRVVT Confirm Interp Factor V Activity POC ABG pH POC ABG pCO2 POC ABG pO2 ABG pO2 ABG HCO3 ABG Base Excess ABG Hemoglobin Oxyhemoglobin Sodium Potassium Chloride Carbon Dioxide BUN Creatinine Glucose POC Glucose 114 H 134 H Lactic Acid Calcium Phosphorus Magnesium Direct Bilirubin AST ALT Alkaline Phosphatase Lactate Dehydrogenase Troponin T C-Reactive Protein Total Protein Albumin Prealbumin Triglycerides Cholesterol LDL Cholesterol Direct HDL Cholesterol Urine pH Urine WBC (Auto) Urine Creatinine Urine Total Protein Fluid Total Protein Vancomycin Trough Rheumatoid Factor Complement C4 Miscellaneous Test Flexitest 1 H Crossmatch 11/06/16 11/06/16 11/06/16 04:56 06:25 06:25 WBC RBC 2.50 L Hgb 7.3 L Hct 22.5 L MCV MCH MCHC RDW 16.9 H Plt Count Lymph % (Auto) [place] % (Auto) 10.5 H Lymph # [place] # 1.1 H Baso # Seg Neutrophils % Seg Neuts % (Manual) Lymphocytes % (Manual) Monocytes % (Manual) Eosinophils % (Manual) Basophils % (Manual) Nucleated RBC % Seg Neutrophils # Seg Neutrophils # Man Lymphocytes # (Manual) Monocytes # (Manual) Eosinophils # (Manual) Basophils # (Manual) PT INR Fibrinogen dRVVT Confirm Interp Factor V Activity POC ABG pH POC ABG pCO2 POC ABG pO2 ABG pO2 ABG HCO3 ABG Base Excess ABG Hemoglobin Oxyhemoglobin Sodium Potassium 5.1 H Chloride 95.9 L Carbon Dioxide BUN 52 H Creatinine 1.8 H Glucose 117 H POC Glucose 120 H Lactic Acid Calcium Phosphorus Magnesium Direct Bilirubin AST 103 H ALT 77 H Alkaline Phosphatase 285 H Lactate Dehydrogenase Troponin T C-Reactive Protein Total Protein 6.2 L Albumin 1.8 L Prealbumin 0.180 L Triglycerides Cholesterol LDL Cholesterol Direct HDL Cholesterol Urine pH Urine WBC (Auto) Urine Creatinine Urine Total Protein Fluid Total Protein Vancomycin Trough Rheumatoid Factor Complement C4 Miscellaneous Test Crossmatch 11/06/16 11/06/16 11/06/16 11:56 17:14 23:52 WBC RBC Hgb Hct MCV MCH MCHC RDW Plt Count Lymph % (Auto) [place] % (Auto) Lymph # [place] # Baso # Seg Neutrophils % Seg Neuts % (Manual) Lymphocytes % (Manual) Monocytes % (Manual) Eosinophils % (Manual) Basophils % (Manual) Nucleated RBC % Seg Neutrophils # Seg Neutrophils # Man Lymphocytes # (Manual) Monocytes # (Manual) Eosinophils # (Manual) Basophils # (Manual) PT INR Fibrinogen dRVVT Confirm Interp Factor V Activity POC ABG pH POC ABG pCO2 POC ABG pO2 ABG pO2 ABG HCO3 ABG Base Excess ABG Hemoglobin Oxyhemoglobin Sodium Potassium Chloride Carbon Dioxide BUN Creatinine Glucose POC Glucose 141 H 125 H 130 H Lactic Acid Calcium Phosphorus Magnesium Direct Bilirubin AST ALT Alkaline Phosphatase Lactate Dehydrogenase Troponin T C-Reactive Protein Total Protein Albumin Prealbumin Triglycerides Cholesterol LDL Cholesterol Direct HDL Cholesterol Urine pH Urine WBC (Auto) Urine Creatinine Urine Total Protein Fluid Total Protein Vancomycin Trough Rheumatoid Factor Complement C4 Miscellaneous Test Crossmatch 11/07/16 11/07/16 11/07/16 06:30 06:30 09:37 WBC RBC 2.18 L Hgb 6.3 L Hct 19.7 L* MCV MCH MCHC RDW 16.8 H Plt Count Lymph % (Auto) [place] % (Auto) 10.0 H Lymph # [place] # 1.0 H Baso # Seg Neutrophils % Seg Neuts % (Manual) Lymphocytes % (Manual) Monocytes % (Manual) Eosinophils % (Manual) Basophils % (Manual) Nucleated RBC % Seg Neutrophils # Seg Neutrophils # Man Lymphocytes # (Manual) Monocytes # (Manual) Eosinophils # (Manual) Basophils # (Manual) PT INR Fibrinogen dRVVT Confirm Interp Factor V Activity POC ABG pH POC ABG pCO2 POC ABG pO2 ABG pO2 ABG HCO3 ABG Base Excess ABG Hemoglobin Oxyhemoglobin Sodium 135 L Potassium Chloride 95.6 L Carbon Dioxide BUN 70 H Creatinine 2.0 H Glucose 126 H POC Glucose Lactic Acid Calcium Phosphorus Magnesium Direct Bilirubin AST ALT Alkaline Phosphatase Lactate Dehydrogenase Troponin T C-Reactive Protein Total Protein Albumin Prealbumin Triglycerides Cholesterol LDL Cholesterol Direct HDL Cholesterol Urine pH Urine WBC (Auto) Urine Creatinine Urine Total Protein Fluid Total Protein Vancomycin Trough Rheumatoid Factor Complement C4 Miscellaneous Test Crossmatch See Detail 11/07/16 11/07/16 11/07/16 12:52 18:51 21:26 WBC RBC Hgb Hct MCV MCH MCHC RDW Plt Count Lymph % (Auto) [place] % (Auto) Lymph # [place] # Baso # Seg Neutrophils % Seg Neuts % (Manual) Lymphocytes % (Manual) Monocytes % (Manual) Eosinophils % (Manual) Basophils % (Manual) Nucleated RBC % Seg Neutrophils # Seg Neutrophils # Man Lymphocytes # (Manual) Monocytes # (Manual) Eosinophils # (Manual) Basophils # (Manual) PT INR Fibrinogen dRVVT Confirm Interp Factor V Activity POC ABG pH 7.523 H POC ABG pCO2 34.6 L POC ABG pO2 53 L ABG pO2 ABG HCO3 ABG Base Excess ABG Hemoglobin Oxyhemoglobin Sodium Potassium Chloride Carbon Dioxide BUN Creatinine Glucose POC Glucose 142 H 155 H Lactic Acid Calcium Phosphorus Magnesium Direct Bilirubin AST ALT Alkaline Phosphatase Lactate Dehydrogenase Troponin T C-Reactive Protein Total Protein Albumin Prealbumin Triglycerides Cholesterol LDL Cholesterol Direct HDL Cholesterol Urine pH Urine WBC (Auto) Urine Creatinine Urine Total Protein Fluid Total Protein Vancomycin Trough Rheumatoid Factor Complement C4 Miscellaneous Test Crossmatch 11/07/16 11/08/16 11/08/16 21:34 13:03 23:37 WBC RBC 2.63 L Hgb 7.7 L Hct 22.7 L MCV MCH MCHC RDW 17.0 H Plt Count Lymph % (Auto) [place] % (Auto) Lymph # [place] # Baso # Seg Neutrophils % Seg Neuts % (Manual) Lymphocytes % (Manual) Monocytes % (Manual) Eosinophils % (Manual) Basophils % (Manual) Nucleated RBC % Seg Neutrophils # Seg Neutrophils # Man Lymphocytes # (Manual) Monocytes # (Manual) Eosinophils # (Manual) Basophils # (Manual) PT INR Fibrinogen dRVVT Confirm Interp Factor V Activity POC ABG pH 7.478 H POC ABG pCO2 34.0 L POC ABG pO2 50 L ABG pO2 ABG HCO3 ABG Base Excess ABG Hemoglobin Oxyhemoglobin Sodium Potassium Chloride Carbon Dioxide BUN Creatinine Glucose POC Glucose 113 H Lactic Acid Calcium Phosphorus Magnesium Direct Bilirubin AST ALT Alkaline Phosphatase Lactate Dehydrogenase Troponin T C-Reactive Protein Total Protein Albumin Prealbumin Triglycerides Cholesterol LDL Cholesterol Direct HDL Cholesterol Urine pH Urine WBC (Auto) Urine Creatinine Urine Total Protein Fluid Total Protein Vancomycin Trough Rheumatoid Factor Complement C4 Miscellaneous Test Crossmatch 11/09/16 11/09/16 11/09/16 04:35 10:15 18:21 WBC RBC 2.68 L Hgb 7.8 L Hct 23.3 L MCV MCH MCHC RDW 17.0 H Plt Count Lymph % (Auto) [place] % (Auto) 12.1 H Lymph # [place] # 1.1 H Baso # Seg Neutrophils % Seg Neuts % (Manual) Lymphocytes % (Manual) Monocytes % (Manual) Eosinophils % (Manual) Basophils % (Manual) Nucleated RBC % Seg Neutrophils # Seg Neutrophils # Man Lymphocytes # (Manual) Monocytes # (Manual) Eosinophils # (Manual) Basophils # (Manual) PT INR Fibrinogen dRVVT Confirm Interp Factor V Activity POC ABG pH POC ABG pCO2 POC ABG pO2 ABG pO2 ABG HCO3 ABG Base Excess ABG Hemoglobin Oxyhemoglobin Sodium Potassium Chloride Carbon Dioxide BUN 51 H Creatinine 1.8 H Glucose POC Glucose 60 L Lactic Acid Calcium 8.3 L Phosphorus Magnesium Direct Bilirubin AST ALT Alkaline Phosphatase Lactate Dehydrogenase Troponin T C-Reactive Protein Total Protein Albumin Prealbumin Triglycerides Cholesterol LDL Cholesterol Direct HDL Cholesterol Urine pH Urine WBC (Auto) Urine Creatinine Urine Total Protein Fluid Total Protein Vancomycin Trough Rheumatoid Factor Complement C4 Miscellaneous Test Crossmatch 11/09/16 11/10/16 11/10/16 18:55 07:00 11:51 WBC RBC Hgb Hct MCV MCH MCHC RDW Plt Count Lymph % (Auto) [place] % (Auto) Lymph # [place] # Baso # Seg Neutrophils % Seg Neuts % (Manual) Lymphocytes % (Manual) Monocytes % (Manual) Eosinophils % (Manual) Basophils % (Manual) Nucleated RBC % Seg Neutrophils # Seg Neutrophils # Man Lymphocytes # (Manual) Monocytes # (Manual) Eosinophils # (Manual) Basophils # (Manual) PT INR Fibrinogen dRVVT Confirm Interp Factor V Activity POC ABG pH POC ABG pCO2 POC ABG pO2 ABG pO2 ABG HCO3 ABG Base Excess ABG Hemoglobin Oxyhemoglobin Sodium Potassium 3.0 L D Chloride 97.4 L Carbon Dioxide BUN 28 H Creatinine 1.3 H Glucose POC Glucose 68 L 120 H Lactic Acid Calcium 7.8 L Phosphorus Magnesium Direct Bilirubin AST ALT Alkaline Phosphatase Lactate Dehydrogenase Troponin T C-Reactive Protein Total Protein Albumin Prealbumin Triglycerides Cholesterol LDL Cholesterol Direct HDL Cholesterol Urine pH Urine WBC (Auto) Urine Creatinine Urine Total Protein Fluid Total Protein Vancomycin Trough Rheumatoid Factor Complement C4 Miscellaneous Test Crossmatch 11/10/16 11/11/16 11/11/16 14:20 06:59 06:59 WBC RBC 2.81 L Hgb 8.1 L Hct 24.4 L MCV MCH MCHC RDW 16.4 H Plt Count Lymph % (Auto) [place] % (Auto) 10.8 H Lymph # [place] # 1.0 H Baso # Seg Neutrophils % Seg Neuts % (Manual) Lymphocytes % (Manual) Monocytes % (Manual) Eosinophils % (Manual) Basophils % (Manual) Nucleated RBC % Seg Neutrophils # Seg Neutrophils # Man Lymphocytes # (Manual) Monocytes # (Manual) Eosinophils # (Manual) Basophils # (Manual) PT INR Fibrinogen dRVVT Confirm Interp Factor V Activity POC ABG pH POC ABG pCO2 POC ABG pO2 ABG pO2 ABG HCO3 ABG Base Excess ABG Hemoglobin Oxyhemoglobin Sodium Potassium Chloride Carbon Dioxide BUN Creatinine Glucose POC Glucose Lactic Acid Calcium Phosphorus Magnesium Direct Bilirubin AST ALT Alkaline Phosphatase Lactate Dehydrogenase 196 H Troponin T C-Reactive Protein Total Protein 6.1 L Albumin Prealbumin Triglycerides Cholesterol LDL Cholesterol Direct HDL Cholesterol Urine pH Urine WBC (Auto) Urine Creatinine Urine Total Protein Fluid Total Protein < 3.0 L Vancomycin Trough Rheumatoid Factor Complement C4 Miscellaneous Test Crossmatch 11/11/16 11/11/16 11/12/16 06:59 09:50 04:00 WBC RBC Hgb Hct MCV MCH MCHC RDW Plt Count Lymph % (Auto) [place] % (Auto) Lymph # [place] # Baso # Seg Neutrophils % Seg Neuts % (Manual) Lymphocytes % (Manual) Monocytes % (Manual) Eosinophils % (Manual) Basophils % (Manual) Nucleated RBC % Seg Neutrophils # Seg Neutrophils # Man Lymphocytes # (Manual) Monocytes # (Manual) Eosinophils # (Manual) Basophils # (Manual) PT INR 1.18 H Fibrinogen dRVVT Confirm Interp Factor V Activity POC ABG pH POC ABG pCO2 POC ABG pO2 ABG pO2 ABG HCO3 ABG Base Excess ABG Hemoglobin Oxyhemoglobin Sodium 136 L 133 L Potassium Chloride 96.1 L 94.8 L Carbon Dioxide 21 L BUN 37 H 42 H Creatinine 1.8 H 2.0 H Glucose POC Glucose Lactic Acid Calcium Phosphorus Magnesium Direct Bilirubin AST ALT Alkaline Phosphatase Lactate Dehydrogenase Troponin T C-Reactive Protein Total Protein Albumin Prealbumin Triglycerides Cholesterol LDL Cholesterol Direct HDL Cholesterol Urine pH Urine WBC (Auto) Urine Creatinine Urine Total Protein Fluid Total Protein Vancomycin Trough Rheumatoid Factor Complement C4 Miscellaneous Test Crossmatch 11/12/16 11/12/16 11/13/16 04:00 23:55 05:53 WBC RBC Hgb 8.9 L Hct 27.2 L MCV MCH MCHC RDW Plt Count Lymph % (Auto) [place] % (Auto) Lymph # [place] # Baso # Seg Neutrophils % Seg Neuts % (Manual) Lymphocytes % (Manual) Monocytes % (Manual) Eosinophils % (Manual) Basophils % (Manual) Nucleated RBC % Seg Neutrophils # Seg Neutrophils # Man Lymphocytes # (Manual) Monocytes # (Manual) Eosinophils # (Manual) Basophils # (Manual) PT INR Fibrinogen dRVVT Confirm Interp Factor V Activity POC ABG pH POC ABG pCO2 POC ABG pO2 ABG pO2 ABG HCO3 ABG Base Excess ABG Hemoglobin Oxyhemoglobin Sodium Potassium Chloride Carbon Dioxide BUN Creatinine Glucose POC Glucose 132 H 120 H Lactic Acid Calcium Phosphorus Magnesium Direct Bilirubin AST ALT Alkaline Phosphatase Lactate Dehydrogenase Troponin T C-Reactive Protein Total Protein Albumin Prealbumin Triglycerides Cholesterol LDL Cholesterol Direct HDL Cholesterol Urine pH Urine WBC (Auto) Urine Creatinine Urine Total Protein Fluid Total Protein Vancomycin Trough Rheumatoid Factor Complement C4 Miscellaneous Test Crossmatch 11/13/16 11/13/16 11/13/16 11:43 17:09 23:41 WBC RBC Hgb Hct MCV MCH MCHC RDW Plt Count Lymph % (Auto) [place] % (Auto) Lymph # [place] # Baso # Seg Neutrophils % Seg Neuts % (Manual) Lymphocytes % (Manual) Monocytes % (Manual) Eosinophils % (Manual) Basophils % (Manual) Nucleated RBC % Seg Neutrophils # Seg Neutrophils # Man Lymphocytes # (Manual) Monocytes # (Manual) Eosinophils # (Manual) Basophils # (Manual) PT INR Fibrinogen dRVVT Confirm Interp Factor V Activity POC ABG pH POC ABG pCO2 POC ABG pO2 ABG pO2 ABG HCO3 ABG Base Excess ABG Hemoglobin Oxyhemoglobin Sodium Potassium Chloride Carbon Dioxide BUN Creatinine Glucose POC Glucose 114 H 113 H 108 H Lactic Acid Calcium Phosphorus Magnesium Direct Bilirubin AST ALT Alkaline Phosphatase Lactate Dehydrogenase Troponin T C-Reactive Protein Total Protein Albumin Prealbumin Triglycerides Cholesterol LDL Cholesterol Direct HDL Cholesterol Urine pH Urine WBC (Auto) Urine Creatinine Urine Total Protein Fluid Total Protein Vancomycin Trough Rheumatoid Factor Complement C4 Miscellaneous Test Crossmatch 11/13/16 11/15/16 11/15/16 Unknown 00:37 03:30 WBC 11.2 H RBC 2.72 L Hgb 7.6 L Hct 23.4 L MCV MCH MCHC RDW 16.5 H Plt Count Lymph % (Auto) [place] % (Auto) Lymph # [place] # Baso # Seg Neutrophils % Seg Neuts % (Manual) Lymphocytes % (Manual) Monocytes % (Manual) Eosinophils % (Manual) Basophils % (Manual) Nucleated RBC % Seg Neutrophils # Seg Neutrophils # Man Lymphocytes # (Manual) Monocytes # (Manual) Eosinophils # (Manual) Basophils # (Manual) PT INR Fibrinogen dRVVT Confirm Interp Factor V Activity POC ABG pH POC ABG pCO2 POC ABG pO2 ABG pO2 ABG HCO3 ABG Base Excess ABG Hemoglobin Oxyhemoglobin Sodium 135 L Potassium Chloride 95.2 L Carbon Dioxide BUN 52 H Creatinine 2.2 H Glucose POC Glucose 108 H Lactic Acid Calcium Phosphorus Magnesium Direct Bilirubin AST ALT Alkaline Phosphatase Lactate Dehydrogenase Troponin T C-Reactive Protein Total Protein Albumin Prealbumin Triglycerides Cholesterol LDL Cholesterol Direct HDL Cholesterol Urine pH Urine WBC (Auto) Urine Creatinine Urine Total Protein Fluid Total Protein Vancomycin Trough Rheumatoid Factor Complement C4 Miscellaneous Test Crossmatch 11/15/16 11/15/16 11/15/16 03:30 05:04 11:50 WBC RBC Hgb Hct MCV MCH MCHC RDW Plt Count Lymph % (Auto) [place] % (Auto) Lymph # [place] # Baso # Seg Neutrophils % Seg Neuts % (Manual) Lymphocytes % (Manual) Monocytes % (Manual) Eosinophils % (Manual) Basophils % (Manual) Nucleated RBC % Seg Neutrophils # Seg Neutrophils # Man Lymphocytes # (Manual) Monocytes # (Manual) Eosinophils # (Manual) Basophils # (Manual) PT INR Fibrinogen dRVVT Confirm Interp Factor V Activity POC ABG pH POC ABG pCO2 POC ABG pO2 ABG pO2 ABG HCO3 ABG Base Excess ABG Hemoglobin Oxyhemoglobin Sodium Potassium 3.4 L Chloride Carbon Dioxide BUN 25 H Creatinine 1.5 H Glucose 103 H POC Glucose 121 H 144 H Lactic Acid Calcium Phosphorus Magnesium Direct Bilirubin AST ALT Alkaline Phosphatase Lactate Dehydrogenase Troponin T C-Reactive Protein Total Protein Albumin Prealbumin Triglycerides Cholesterol LDL Cholesterol Direct HDL Cholesterol Urine pH Urine WBC (Auto) Urine Creatinine Urine Total Protein Fluid Total Protein Vancomycin Trough Rheumatoid Factor Complement C4 Miscellaneous Test Crossmatch 11/15/16 11/15/16 11/16/16 21:28 23:20 11:44 WBC RBC Hgb Hct MCV MCH MCHC RDW Plt Count Lymph % (Auto) [place] % (Auto) Lymph # [place] # Baso # Seg Neutrophils % Seg Neuts % (Manual) Lymphocytes % (Manual) Monocytes % (Manual) Eosinophils % (Manual) Basophils % (Manual) Nucleated RBC % Seg Neutrophils # Seg Neutrophils # Man Lymphocytes # (Manual) Monocytes # (Manual) Eosinophils # (Manual) Basophils # (Manual) PT INR Fibrinogen dRVVT Confirm Interp Factor V Activity POC ABG pH 7.462 H POC ABG pCO2 POC ABG pO2 71 L ABG pO2 ABG HCO3 ABG Base Excess ABG Hemoglobin Oxyhemoglobin Sodium Potassium Chloride Carbon Dioxide BUN Creatinine Glucose POC Glucose 116 H 133 H Lactic Acid Calcium Phosphorus Magnesium Direct Bilirubin AST ALT Alkaline Phosphatase Lactate Dehydrogenase Troponin T C-Reactive Protein Total Protein Albumin Prealbumin Triglycerides Cholesterol LDL Cholesterol Direct HDL Cholesterol Urine pH Urine WBC (Auto) Urine Creatinine Urine Total Protein Fluid Total Protein Vancomycin Trough Rheumatoid Factor Complement C4 Miscellaneous Test Crossmatch 11/16/16 11/16/16 11/16/16 12:20 17:05 23:35 WBC 11.7 H RBC 2.73 L Hgb 7.6 L Hct 23.7 L MCV MCH MCHC RDW 16.6 H Plt Count Lymph % (Auto) [place] % (Auto) Lymph # [place] # Baso # Seg Neutrophils % Seg Neuts % (Manual) Lymphocytes % (Manual) Monocytes % (Manual) Eosinophils % (Manual) Basophils % (Manual) Nucleated RBC % Seg Neutrophils # Seg Neutrophils # Man Lymphocytes # (Manual) Monocytes # (Manual) Eosinophils # (Manual) Basophils # (Manual) PT INR Fibrinogen dRVVT Confirm Interp Factor V Activity POC ABG pH POC ABG pCO2 POC ABG pO2 ABG pO2 ABG HCO3 ABG Base Excess ABG Hemoglobin Oxyhemoglobin Sodium Potassium Chloride Carbon Dioxide BUN Creatinine Glucose POC Glucose 154 H 125 H Lactic Acid Calcium Phosphorus Magnesium Direct Bilirubin AST ALT Alkaline Phosphatase Lactate Dehydrogenase Troponin T C-Reactive Protein Total Protein Albumin Prealbumin Triglycerides Cholesterol LDL Cholesterol Direct HDL Cholesterol Urine pH Urine WBC (Auto) Urine Creatinine Urine Total Protein Fluid Total Protein Vancomycin Trough Rheumatoid Factor Complement C4 Miscellaneous Test Crossmatch 11/17/16 11/17/16 11/17/16 03:20 03:20 03:20 WBC RBC 2.55 L Hgb 7.3 L Hct 21.9 L MCV MCH MCHC RDW 16.6 H Plt Count Lymph % (Auto) [place] % (Auto) 11.5 H Lymph # [place] # 1.1 H Baso # Seg Neutrophils % Seg Neuts % (Manual) Lymphocytes % (Manual) Monocytes % (Manual) Eosinophils % (Manual) Basophils % (Manual) Nucleated RBC % Seg Neutrophils # Seg Neutrophils # Man Lymphocytes # (Manual) Monocytes # (Manual) Eosinophils # (Manual) Basophils # (Manual) PT 16.8 H INR 1.37 H Fibrinogen dRVVT Confirm Interp Factor V Activity POC ABG pH POC ABG pCO2 POC ABG pO2 ABG pO2 ABG HCO3 ABG Base Excess ABG Hemoglobin Oxyhemoglobin Sodium Potassium 3.5 L Chloride Carbon Dioxide BUN 21 H Creatinine Glucose POC Glucose Lactic Acid Calcium 7.9 L Phosphorus Magnesium Direct Bilirubin AST ALT Alkaline Phosphatase Lactate Dehydrogenase Troponin T C-Reactive Protein Total Protein Albumin Prealbumin Triglycerides Cholesterol LDL Cholesterol Direct HDL Cholesterol Urine pH Urine WBC (Auto) Urine Creatinine Urine Total Protein Fluid Total Protein Vancomycin Trough Rheumatoid Factor Complement C4 Miscellaneous Test Crossmatch 11/17/16 11/17/16 11/17/16 06:34 11:21 21:22 WBC RBC Hgb Hct MCV MCH MCHC RDW Plt Count Lymph % (Auto) [place] % (Auto) Lymph # [place] # Baso # Seg Neutrophils % Seg Neuts % (Manual) Lymphocytes % (Manual) Monocytes % (Manual) Eosinophils % (Manual) Basophils % (Manual) Nucleated RBC % Seg Neutrophils # Seg Neutrophils # Man Lymphocytes # (Manual) Monocytes # (Manual) Eosinophils # (Manual) Basophils # (Manual) PT INR Fibrinogen dRVVT Confirm Interp Factor V Activity POC ABG pH 7.467 H POC ABG pCO2 POC ABG pO2 73 L ABG pO2 ABG HCO3 ABG Base Excess ABG Hemoglobin Oxyhemoglobin Sodium Potassium Chloride Carbon Dioxide BUN Creatinine Glucose POC Glucose 121 H 119 H Lactic Acid Calcium Phosphorus Magnesium Direct Bilirubin AST ALT Alkaline Phosphatase Lactate Dehydrogenase Troponin T C-Reactive Protein Total Protein Albumin Prealbumin Triglycerides Cholesterol LDL Cholesterol Direct HDL Cholesterol Urine pH Urine WBC (Auto) Urine Creatinine Urine Total Protein Fluid Total Protein Vancomycin Trough Rheumatoid Factor Complement C4 Miscellaneous Test Crossmatch 11/18/16 11/18/16 11/19/16 12:16 17:19 00:00 WBC RBC Hgb Hct MCV MCH MCHC RDW Plt Count Lymph % (Auto) [place] % (Auto) Lymph # [place] # Baso # Seg Neutrophils % Seg Neuts % (Manual) Lymphocytes % (Manual) Monocytes % (Manual) Eosinophils % (Manual) Basophils % (Manual) Nucleated RBC % Seg Neutrophils # Seg Neutrophils # Man Lymphocytes # (Manual) Monocytes # (Manual) Eosinophils # (Manual) Basophils # (Manual) PT INR Fibrinogen dRVVT Confirm Interp Factor V Activity POC ABG pH POC ABG pCO2 POC ABG pO2 ABG pO2 ABG HCO3 ABG Base Excess ABG Hemoglobin Oxyhemoglobin Sodium Potassium Chloride Carbon Dioxide BUN Creatinine Glucose POC Glucose 124 H 162 H 139 H Lactic Acid Calcium Phosphorus Magnesium Direct Bilirubin AST ALT Alkaline Phosphatase Lactate Dehydrogenase Troponin T C-Reactive Protein Total Protein Albumin Prealbumin Triglycerides Cholesterol LDL Cholesterol Direct HDL Cholesterol Urine pH Urine WBC (Auto) Urine Creatinine Urine Total Protein Fluid Total Protein Vancomycin Trough Rheumatoid Factor Complement C4 Miscellaneous Test Crossmatch 11/19/16 11/19/16 11/20/16 05:00 12:43 00:40 WBC RBC Hgb Hct MCV MCH MCHC RDW Plt Count Lymph % (Auto) [place] % (Auto) Lymph # [place] # Baso # Seg Neutrophils % Seg Neuts % (Manual) Lymphocytes % (Manual) Monocytes % (Manual) Eosinophils % (Manual) Basophils % (Manual) Nucleated RBC % Seg Neutrophils # Seg Neutrophils # Man Lymphocytes # (Manual) Monocytes # (Manual) Eosinophils # (Manual) Basophils # (Manual) PT INR Fibrinogen dRVVT Confirm Interp Factor V Activity POC ABG pH POC ABG pCO2 POC ABG pO2 ABG pO2 ABG HCO3 ABG Base Excess ABG Hemoglobin Oxyhemoglobin Sodium Potassium Chloride Carbon Dioxide BUN Creatinine Glucose POC Glucose 110 H 125 H 136 H Lactic Acid Calcium Phosphorus Magnesium Direct Bilirubin AST ALT Alkaline Phosphatase Lactate Dehydrogenase Troponin T C-Reactive Protein Total Protein Albumin Prealbumin Triglycerides Cholesterol LDL Cholesterol Direct HDL Cholesterol Urine pH Urine WBC (Auto) Urine Creatinine Urine Total Protein Fluid Total Protein Vancomycin Trough Rheumatoid Factor Complement C4 Miscellaneous Test Crossmatch 11/20/16 11/20/16 11/20/16 05:00 05:00 05:51 WBC 13.1 H RBC 2.74 L Hgb 7.7 L Hct 23.6 L MCV MCH MCHC RDW 16.9 H Plt Count Lymph % (Auto) [place] % (Auto) 10.8 H Lymph # [place] # 1.4 H Baso # Seg Neutrophils % Seg Neuts % (Manual) Lymphocytes % (Manual) Monocytes % (Manual) Eosinophils % (Manual) Basophils % (Manual) Nucleated RBC % Seg Neutrophils # 7.9 H Seg Neutrophils # Man Lymphocytes # (Manual) Monocytes # (Manual) Eosinophils # (Manual) Basophils # (Manual) PT INR Fibrinogen dRVVT Confirm Interp Factor V Activity POC ABG pH POC ABG pCO2 POC ABG pO2 ABG pO2 ABG HCO3 ABG Base Excess ABG Hemoglobin Oxyhemoglobin Sodium Potassium Chloride Carbon Dioxide BUN 31 H Creatinine 1.8 H Glucose 129 H POC Glucose 133 H Lactic Acid Calcium Phosphorus Magnesium Direct Bilirubin AST ALT Alkaline Phosphatase Lactate Dehydrogenase Troponin T C-Reactive Protein Total Protein Albumin Prealbumin Triglycerides Cholesterol LDL Cholesterol Direct HDL Cholesterol Urine pH Urine WBC (Auto) Urine Creatinine Urine Total Protein Fluid Total Protein Vancomycin Trough Rheumatoid Factor Complement C4 Miscellaneous Test Crossmatch 11/20/16 11/20/16 11/21/16 12:40 18:10 01:20 WBC RBC Hgb Hct MCV MCH MCHC RDW Plt Count Lymph % (Auto) [place] % (Auto) Lymph # [place] # Baso # Seg Neutrophils % Seg Neuts % (Manual) Lymphocytes % (Manual) Monocytes % (Manual) Eosinophils % (Manual) Basophils % (Manual) Nucleated RBC % Seg Neutrophils # Seg Neutrophils # Man Lymphocytes # (Manual) Monocytes # (Manual) Eosinophils # (Manual) Basophils # (Manual) PT INR Fibrinogen dRVVT Confirm Interp Factor V Activity POC ABG pH POC ABG pCO2 POC ABG pO2 ABG pO2 ABG HCO3 ABG Base Excess ABG Hemoglobin Oxyhemoglobin Sodium Potassium Chloride Carbon Dioxide BUN Creatinine Glucose POC Glucose 134 H 138 H 136 H Lactic Acid Calcium Phosphorus Magnesium Direct Bilirubin AST ALT Alkaline Phosphatase Lactate Dehydrogenase Troponin T C-Reactive Protein Total Protein Albumin Prealbumin Triglycerides Cholesterol LDL Cholesterol Direct HDL Cholesterol Urine pH Urine WBC (Auto) Urine Creatinine Urine Total Protein Fluid Total Protein Vancomycin Trough Rheumatoid Factor Complement C4 Miscellaneous Test Crossmatch 11/21/16 11/21/16 11/21/16 07:04 07:45 07:45 WBC 22.0 H RBC 2.91 L Hgb 8.2 L Hct 25.4 L MCV MCH MCHC RDW 17.1 H Plt Count Lymph % (Auto) [place] % (Auto) Lymph # [place] # Baso # Seg Neutrophils % Seg Neuts % (Manual) Lymphocytes % (Manual) 8.0 L Monocytes % (Manual) Eosinophils % (Manual) Basophils % (Manual) Nucleated RBC % Seg Neutrophils # Seg Neutrophils # Man 14.7 H Lymphocytes # (Manual) Monocytes # (Manual) 1.1 H Eosinophils # (Manual) Basophils # (Manual) PT INR Fibrinogen dRVVT Confirm Interp Factor V Activity POC ABG pH POC ABG pCO2 POC ABG pO2 ABG pO2 ABG HCO3 ABG Base Excess ABG Hemoglobin Oxyhemoglobin Sodium Potassium Chloride Carbon Dioxide BUN 42 H Creatinine 2.0 H Glucose POC Glucose 108 H Lactic Acid Calcium Phosphorus Magnesium Direct Bilirubin AST ALT Alkaline Phosphatase Lactate Dehydrogenase Troponin T C-Reactive Protein Total Protein Albumin Prealbumin Triglycerides Cholesterol LDL Cholesterol Direct HDL Cholesterol Urine pH Urine WBC (Auto) Urine Creatinine Urine Total Protein Fluid Total Protein Vancomycin Trough Rheumatoid Factor Complement C4 Miscellaneous Test Crossmatch 11/21/16 11/21/16 11/21/16 08:38 10:09 11:20 WBC RBC Hgb Hct MCV MCH MCHC RDW Plt Count Lymph % (Auto) [place] % (Auto) Lymph # [place] # Baso # Seg Neutrophils % Seg Neuts % (Manual) Lymphocytes % (Manual) Monocytes % (Manual) Eosinophils % (Manual) Basophils % (Manual) Nucleated RBC % Seg Neutrophils # Seg Neutrophils # Man Lymphocytes # (Manual) Monocytes # (Manual) Eosinophils # (Manual) Basophils # (Manual) PT INR Fibrinogen dRVVT Confirm Interp Factor V Activity POC ABG pH 7.346 L POC ABG pCO2 34.4 L POC ABG pO2 314 H ABG pO2 ABG HCO3 ABG Base Excess ABG Hemoglobin Oxyhemoglobin Sodium Potassium Chloride Carbon Dioxide BUN Creatinine Glucose POC Glucose 195 H 153 H Lactic Acid Calcium Phosphorus Magnesium Direct Bilirubin AST ALT Alkaline Phosphatase Lactate Dehydrogenase Troponin T C-Reactive Protein Total Protein Albumin Prealbumin Triglycerides Cholesterol LDL Cholesterol Direct HDL Cholesterol Urine pH Urine WBC (Auto) Urine Creatinine Urine Total Protein Fluid Total Protein Vancomycin Trough Rheumatoid Factor Complement C4 Miscellaneous Test Crossmatch 11/21/16 11/22/16 11/22/16 23:37 04:48 05:00 WBC 29.7 H RBC 2.73 L Hgb 7.5 L Hct 24.2 L MCV MCH 27 L MCHC RDW 17.4 H Plt Count Lymph % (Auto) [place] % (Auto) Lymph # [place] # Baso # Seg Neutrophils % Seg Neuts % (Manual) Lymphocytes % (Manual) 7.0 L Monocytes % (Manual) Eosinophils % (Manual) Basophils % (Manual) Nucleated RBC % Seg Neutrophils # Seg Neutrophils # Man 15.4 H Lymphocytes # (Manual) Monocytes # (Manual) Eosinophils # (Manual) Basophils # (Manual) PT INR Fibrinogen dRVVT Confirm Interp Factor V Activity POC ABG pH POC ABG pCO2 24.6 L POC ABG pO2 189 H ABG pO2 ABG HCO3 ABG Base Excess ABG Hemoglobin Oxyhemoglobin Sodium Potassium Chloride Carbon Dioxide BUN Creatinine Glucose POC Glucose 65 L Lactic Acid Calcium Phosphorus Magnesium Direct Bilirubin AST ALT Alkaline Phosphatase Lactate Dehydrogenase Troponin T C-Reactive Protein Total Protein Albumin Prealbumin Triglycerides Cholesterol LDL Cholesterol Direct HDL Cholesterol Urine pH Urine WBC (Auto) Urine Creatinine Urine Total Protein Fluid Total Protein Vancomycin Trough Rheumatoid Factor Complement C4 Miscellaneous Test Crossmatch 11/22/16 11/23/16 11/23/16 05:00 03:44 04:06 WBC RBC 2.52 L Hgb 7.2 L Hct 21.5 L MCV MCH MCHC RDW 17.1 H Plt Count Lymph % (Auto) [place] % (Auto) 12.4 H Lymph # [place] # 1.4 H Baso # Seg Neutrophils % Seg Neuts % (Manual) Lymphocytes % (Manual) Monocytes % (Manual) Eosinophils % (Manual) Basophils % (Manual) Nucleated RBC % Seg Neutrophils # Seg Neutrophils # Man Lymphocytes # (Manual) Monocytes # (Manual) Eosinophils # (Manual) Basophils # (Manual) PT INR Fibrinogen dRVVT Confirm Interp Factor V Activity POC ABG pH 7.493 H POC ABG pCO2 29.5 L POC ABG pO2 49 L ABG pO2 ABG HCO3 ABG Base Excess ABG Hemoglobin Oxyhemoglobin Sodium 134 L Potassium Chloride 95.9 L Carbon Dioxide 14 L D BUN 51 H Creatinine 2.6 H Glucose POC Glucose Lactic Acid Calcium Phosphorus Magnesium Direct Bilirubin AST ALT Alkaline Phosphatase Lactate Dehydrogenase Troponin T C-Reactive Protein Total Protein Albumin Prealbumin Triglycerides Cholesterol LDL Cholesterol Direct HDL Cholesterol Urine pH Urine WBC (Auto) Urine Creatinine Urine Total Protein Fluid Total Protein Vancomycin Trough Rheumatoid Factor Complement C4 Miscellaneous Test Crossmatch 11/23/16 11/23/16 11/24/16 04:06 11:29 06:39 WBC RBC Hgb Hct MCV MCH MCHC RDW Plt Count Lymph % (Auto) [place] % (Auto) Lymph # [place] # Baso # Seg Neutrophils % Seg Neuts % (Manual) Lymphocytes % (Manual) Monocytes % (Manual) Eosinophils % (Manual) Basophils % (Manual) Nucleated RBC % Seg Neutrophils # Seg Neutrophils # Man Lymphocytes # (Manual) Monocytes # (Manual) Eosinophils # (Manual) Basophils # (Manual) PT INR Fibrinogen dRVVT Confirm Interp Factor V Activity POC ABG pH POC ABG pCO2 POC ABG pO2 ABG pO2 ABG HCO3 ABG Base Excess ABG Hemoglobin Oxyhemoglobin Sodium 136 L Potassium Chloride 95.2 L Carbon Dioxide BUN 60 H Creatinine 2.9 H Glucose POC Glucose 69 L 305 H Lactic Acid Calcium Phosphorus Magnesium 1.60 L Direct Bilirubin AST ALT Alkaline Phosphatase Lactate Dehydrogenase Troponin T C-Reactive Protein Total Protein Albumin Prealbumin Triglycerides Cholesterol LDL Cholesterol Direct HDL Cholesterol Urine pH Urine WBC (Auto) Urine Creatinine Urine Total Protein Fluid Total Protein Vancomycin Trough Rheumatoid Factor Complement C4 Miscellaneous Test Crossmatch 11/24/16 11/24/16 11/24/16 06:43 08:08 08:08 WBC 11.2 H RBC 2.47 L Hgb 6.8 L Hct 20.6 L MCV MCH MCHC RDW 17.0 H Plt Count Lymph % (Auto) [place] % (Auto) 10.3 H Lymph # [place] # 1.2 H Baso # Seg Neutrophils % Seg Neuts % (Manual) Lymphocytes % (Manual) Monocytes % (Manual) Eosinophils % (Manual) Basophils % (Manual) Nucleated RBC % Seg Neutrophils # Seg Neutrophils # Man Lymphocytes # (Manual) Monocytes # (Manual) Eosinophils # (Manual) Basophils # (Manual) PT INR Fibrinogen dRVVT Confirm Interp Factor V Activity POC ABG pH POC ABG pCO2 POC ABG pO2 ABG pO2 ABG HCO3 ABG Base Excess ABG Hemoglobin Oxyhemoglobin Sodium 135 L Potassium Chloride 96.3 L Carbon Dioxide BUN 61 H Creatinine 3.1 H Glucose POC Glucose 62 L Lactic Acid Calcium 8.2 L Phosphorus Magnesium Direct Bilirubin AST ALT Alkaline Phosphatase Lactate Dehydrogenase Troponin T C-Reactive Protein Total Protein Albumin Prealbumin Triglycerides Cholesterol LDL Cholesterol Direct HDL Cholesterol Urine pH Urine WBC (Auto) Urine Creatinine Urine Total Protein Fluid Total Protein Vancomycin Trough Rheumatoid Factor Complement C4 Miscellaneous Test Crossmatch 11/24/16 11/24/16 11/24/16 08:34 11:20 12:41 WBC RBC Hgb Hct MCV MCH MCHC RDW Plt Count Lymph % (Auto) [place] % (Auto) Lymph # [place] # Baso # Seg Neutrophils % Seg Neuts % (Manual) Lymphocytes % (Manual) Monocytes % (Manual) Eosinophils % (Manual) Basophils % (Manual) Nucleated RBC % Seg Neutrophils # Seg Neutrophils # Man Lymphocytes # (Manual) Monocytes # (Manual) Eosinophils # (Manual) Basophils # (Manual) PT INR Fibrinogen dRVVT Confirm Interp Factor V Activity POC ABG pH POC ABG pCO2 POC ABG pO2 ABG pO2 ABG HCO3 ABG Base Excess ABG Hemoglobin Oxyhemoglobin Sodium Potassium Chloride Carbon Dioxide BUN Creatinine Glucose POC Glucose 108 H Lactic Acid Calcium Phosphorus Magnesium 1.60 L Direct Bilirubin AST ALT Alkaline Phosphatase Lactate Dehydrogenase Troponin T C-Reactive Protein Total Protein Albumin Prealbumin Triglycerides Cholesterol LDL Cholesterol Direct HDL Cholesterol Urine pH Urine WBC (Auto) Urine Creatinine Urine Total Protein Fluid Total Protein Vancomycin Trough Rheumatoid Factor Complement C4 Miscellaneous Test Crossmatch See Detail 11/25/16 11/25/16 11/25/16 00:03 04:42 04:42 WBC RBC 3.03 L Hgb 8.6 L Hct 25.3 L MCV MCH MCHC RDW 16.2 H Plt Count Lymph % (Auto) [place] % (Auto) 8.1 H Lymph # [place] # Baso # Seg Neutrophils % 71.3 H Seg Neuts % (Manual) Lymphocytes % (Manual) Monocytes % (Manual) Eosinophils % (Manual) Basophils % (Manual) Nucleated RBC % Seg Neutrophils # Seg Neutrophils # Man Lymphocytes # (Manual) Monocytes # (Manual) Eosinophils # (Manual) Basophils # (Manual) PT INR Fibrinogen dRVVT Confirm Interp Factor V Activity POC ABG pH POC ABG pCO2 POC ABG pO2 ABG pO2 ABG HCO3 ABG Base Excess ABG Hemoglobin Oxyhemoglobin Sodium Potassium Chloride Carbon Dioxide BUN 61 H Creatinine 3.0 H Glucose 102 H POC Glucose 113 H Lactic Acid Calcium 8.2 L Phosphorus Magnesium Direct Bilirubin AST ALT Alkaline Phosphatase 142 H Lactate Dehydrogenase Troponin T C-Reactive Protein Total Protein 5.7 L Albumin 1.5 L Prealbumin Triglycerides Cholesterol LDL Cholesterol Direct HDL Cholesterol Urine pH Urine WBC (Auto) Urine Creatinine Urine Total Protein Fluid Total Protein Vancomycin Trough Rheumatoid Factor Complement C4 Miscellaneous Test Crossmatch 11/25/16 11/25/16 11/25/16 05:12 11:31 14:12 WBC RBC Hgb Hct MCV MCH MCHC RDW Plt Count Lymph % (Auto) [place] % (Auto) Lymph # [place] # Baso # Seg Neutrophils % Seg Neuts % (Manual) Lymphocytes % (Manual) Monocytes % (Manual) Eosinophils % (Manual) Basophils % (Manual) Nucleated RBC % Seg Neutrophils # Seg Neutrophils # Man Lymphocytes # (Manual) Monocytes # (Manual) Eosinophils # (Manual) Basophils # (Manual) PT INR Fibrinogen dRVVT Confirm Interp Factor V Activity POC ABG pH 7.487 H POC ABG pCO2 POC ABG pO2 153 H ABG pO2 ABG HCO3 ABG Base Excess ABG Hemoglobin Oxyhemoglobin Sodium Potassium Chloride Carbon Dioxide BUN Creatinine Glucose POC Glucose 131 H 140 H Lactic Acid Calcium Phosphorus Magnesium Direct Bilirubin AST ALT Alkaline Phosphatase Lactate Dehydrogenase Troponin T C-Reactive Protein Total Protein Albumin Prealbumin Triglycerides Cholesterol LDL Cholesterol Direct HDL Cholesterol Urine pH Urine WBC (Auto) Urine Creatinine Urine Total Protein Fluid Total Protein Vancomycin Trough Rheumatoid Factor Complement C4 Miscellaneous Test Crossmatch 10/08/0611/26/16 11/26/16 17:23 00:09 05:13 WBC RBC 2.94 L Hgb 8.4 L Hct 24.6 L MCV MCH MCHC RDW 16.4 H Plt Count Lymph % (Auto) [place] % (Auto) 12.3 H Lymph # [place] # 1.1 H Baso # Seg Neutrophils % Seg Neuts % (Manual) Lymphocytes % (Manual) Monocytes % (Manual) Eosinophils % (Manual) Basophils % (Manual) Nucleated RBC % Seg Neutrophils # Seg Neutrophils # Man Lymphocytes # (Manual) Monocytes # (Manual) Eosinophils # (Manual) Basophils # (Manual) PT INR Fibrinogen dRVVT Confirm Interp Factor V Activity POC ABG pH POC ABG pCO2 POC ABG pO2 ABG pO2 ABG HCO3 ABG Base Excess ABG Hemoglobin Oxyhemoglobin Sodium Potassium Chloride Carbon Dioxide BUN Creatinine Glucose POC Glucose 146 H 112 H Lactic Acid Calcium Phosphorus Magnesium Direct Bilirubin AST ALT Alkaline Phosphatase Lactate Dehydrogenase Troponin T C-Reactive Protein Total Protein Albumin Prealbumin Triglycerides Cholesterol LDL Cholesterol Direct HDL Cholesterol Urine pH Urine WBC (Auto) Urine Creatinine Urine Total Protein Fluid Total Protein Vancomycin Trough Rheumatoid Factor Complement C4 Miscellaneous Test Crossmatch 11/26/16 11/26/16 11/26/16 05:13 05:28 11:53 WBC RBC Hgb Hct MCV MCH MCHC RDW Plt Count Lymph % (Auto) [place] % (Auto) Lymph # [place] # Baso # Seg Neutrophils % Seg Neuts % (Manual) Lymphocytes % (Manual) Monocytes % (Manual) Eosinophils % (Manual) Basophils % (Manual) Nucleated RBC % Seg Neutrophils # Seg Neutrophils # Man Lymphocytes # (Manual) Monocytes # (Manual) Eosinophils # (Manual) Basophils # (Manual) PT INR Fibrinogen dRVVT Confirm Interp Factor V Activity POC ABG pH POC ABG pCO2 POC ABG pO2 ABG pO2 ABG HCO3 ABG Base Excess ABG Hemoglobin Oxyhemoglobin Sodium Potassium Chloride 97.8 L Carbon Dioxide BUN 37 H Creatinine 2.0 H Glucose 109 H POC Glucose 117 H 111 H Lactic Acid Calcium 7.9 L Phosphorus 1.80 L D Magnesium Direct Bilirubin AST ALT Alkaline Phosphatase Lactate Dehydrogenase Troponin T C-Reactive Protein Total Protein Albumin Prealbumin Triglycerides Cholesterol LDL Cholesterol Direct HDL Cholesterol Urine pH Urine WBC (Auto) Urine Creatinine Urine Total Protein Fluid Total Protein Vancomycin Trough Rheumatoid Factor Complement C4 Miscellaneous Test Crossmatch 11/26/16 11/27/1611/27/17 17:14 04:50 06:02 WBC RBC Hgb Hct MCV MCH MCHC RDW Plt Count Lymph % (Auto) [place] % (Auto) Lymph # [place] # Baso # Seg Neutrophils % Seg Neuts % (Manual) Lymphocytes % (Manual) Monocytes % (Manual) Eosinophils % (Manual) Basophils % (Manual) Nucleated RBC % Seg Neutrophils # Seg Neutrophils # Man Lymphocytes # (Manual) Monocytes # (Manual) Eosinophils # (Manual) Basophils # (Manual) PT INR Fibrinogen dRVVT Confirm Interp Factor V Activity POC ABG pH POC ABG pCO2 POC ABG pO2 ABG pO2 75.2 L ABG HCO3 26.4 H ABG Base Excess ABG Hemoglobin 7.6 L Oxyhemoglobin 94.8 L Sodium Potassium Chloride Carbon Dioxide BUN 49 H Creatinine 2.3 H Glucose POC Glucose 115 H Lactic Acid Calcium Phosphorus 1.50 L Magnesium Direct Bilirubin AST ALT Alkaline Phosphatase Lactate Dehydrogenase Troponin T C-Reactive Protein Total Protein Albumin Prealbumin Triglycerides Cholesterol LDL Cholesterol Direct HDL Cholesterol Urine pH Urine WBC (Auto) Urine Creatinine Urine Total Protein Fluid Total Protein Vancomycin Trough Rheumatoid Factor Complement C4 Miscellaneous Test Crossmatch 11/27/16 11/27/16 11/27/16 06:02 11:25 17:25 WBC 11.6 H RBC 2.75 L Hgb 7.6 L Hct 23.4 L MCV MCH MCHC RDW 16.5 H Plt Count Lymph % (Auto) [place] % (Auto) Lymph # [place] # Baso # Seg Neutrophils % Seg Neuts % (Manual) Lymphocytes % (Manual) Monocytes % (Manual) Eosinophils % (Manual) Basophils % (Manual) Nucleated RBC % Seg Neutrophils # Seg Neutrophils # Man Lymphocytes # (Manual) Monocytes # (Manual) Eosinophils # (Manual) Basophils # (Manual) PT INR Fibrinogen dRVVT Confirm Interp Factor V Activity POC ABG pH POC ABG pCO2 POC ABG pO2 ABG pO2 ABG HCO3 ABG Base Excess ABG Hemoglobin Oxyhemoglobin Sodium Potassium Chloride Carbon Dioxide BUN Creatinine Glucose POC Glucose 114 H 126 H Lactic Acid Calcium Phosphorus Magnesium Direct Bilirubin AST ALT Alkaline Phosphatase Lactate Dehydrogenase Troponin T C-Reactive Protein Total Protein Albumin Prealbumin Triglycerides Cholesterol LDL Cholesterol Direct HDL Cholesterol Urine pH Urine WBC (Auto) Urine Creatinine Urine Total Protein Fluid Total Protein Vancomycin Trough Rheumatoid Factor Complement C4 Miscellaneous Test Crossmatch 11/28/16 11/28/16 11/28/16 04:45 05:33 05:44 WBC RBC Hgb Hct MCV MCH MCHC RDW Plt Count Lymph % (Auto) [place] % (Auto) Lymph # [place] # Baso # Seg Neutrophils % Seg Neuts % (Manual) Lymphocytes % (Manual) Monocytes % (Manual) Eosinophils % (Manual) Basophils % (Manual) Nucleated RBC % Seg Neutrophils # Seg Neutrophils # Man Lymphocytes # (Manual) Monocytes # (Manual) Eosinophils # (Manual) Basophils # (Manual) PT INR Fibrinogen dRVVT Confirm Interp Factor V Activity POC ABG pH POC ABG pCO2 POC ABG pO2 ABG pO2 99.3 H ABG HCO3 ABG Base Excess ABG Hemoglobin 8.3 L Oxyhemoglobin Sodium Potassium Chloride Carbon Dioxide BUN 63 H Creatinine 2.4 H Glucose 102 H POC Glucose 108 H Lactic Acid Calcium Phosphorus 1.80 L Magnesium Direct Bilirubin AST ALT Alkaline Phosphatase Lactate Dehydrogenase Troponin T C-Reactive Protein Total Protein Albumin Prealbumin Triglycerides Cholesterol LDL Cholesterol Direct HDL Cholesterol Urine pH Urine WBC (Auto) Urine Creatinine Urine Total Protein Fluid Total Protein Vancomycin Trough Rheumatoid Factor Complement C4 Miscellaneous Test Crossmatch 11/28/16 11/28/16 11/28/16 12:31 16:09 23:46 WBC RBC Hgb Hct MCV MCH MCHC RDW Plt Count Lymph % (Auto) [place] % (Auto) Lymph # [place] # Baso # Seg Neutrophils % Seg Neuts % (Manual) Lymphocytes % (Manual) Monocytes % (Manual) Eosinophils % (Manual) Basophils % (Manual) Nucleated RBC % Seg Neutrophils # Seg Neutrophils # Man Lymphocytes # (Manual) Monocytes # (Manual) Eosinophils # (Manual) Basophils # (Manual) PT INR Fibrinogen dRVVT Confirm Interp Factor V Activity POC ABG pH POC ABG pCO2 POC ABG pO2 ABG pO2 ABG HCO3 ABG Base Excess ABG Hemoglobin Oxyhemoglobin Sodium Potassium Chloride Carbon Dioxide BUN Creatinine Glucose POC Glucose 126 H 111 H 119 H Lactic Acid Calcium Phosphorus Magnesium Direct Bilirubin AST ALT Alkaline Phosphatase Lactate Dehydrogenase Troponin T C-Reactive Protein Total Protein Albumin Prealbumin Triglycerides Cholesterol LDL Cholesterol Direct HDL Cholesterol Urine pH Urine WBC (Auto) Urine Creatinine Urine Total Protein Fluid Total Protein Vancomycin Trough Rheumatoid Factor Complement C4 Miscellaneous Test Crossmatch 11/29/16 11/29/16 11/29/16 03:33 04:52 05:10 WBC RBC Hgb Hct MCV MCH MCHC RDW Plt Count Lymph % (Auto) [place] % (Auto) Lymph # [place] # Baso # Seg Neutrophils % Seg Neuts % (Manual) Lymphocytes % (Manual) Monocytes % (Manual) Eosinophils % (Manual) Basophils % (Manual) Nucleated RBC % Seg Neutrophils # Seg Neutrophils # Man Lymphocytes # (Manual) Monocytes # (Manual) Eosinophils # (Manual) Basophils # (Manual) PT INR Fibrinogen dRVVT Confirm Interp Factor V Activity POC ABG pH POC ABG pCO2 POC ABG pO2 ABG pO2 ABG HCO3 ABG Base Excess ABG Hemoglobin 7.0 L Oxyhemoglobin 94.9 L Sodium Potassium Chloride Carbon Dioxide BUN 73 H Creatinine 2.7 H Glucose POC Glucose 108 H Lactic Acid Calcium Phosphorus Magnesium Direct Bilirubin AST ALT Alkaline Phosphatase Lactate Dehydrogenase Troponin T C-Reactive Protein Total Protein Albumin Prealbumin Triglycerides Cholesterol LDL Cholesterol Direct HDL Cholesterol Urine pH Urine WBC (Auto) Urine Creatinine Urine Total Protein Fluid Total Protein Vancomycin Trough Rheumatoid Factor Complement C4 Miscellaneous Test Crossmatch 11/29/16 11/29/16 11/29/16 12:16 18:05 23:46 WBC RBC Hgb Hct MCV MCH MCHC RDW Plt Count Lymph % (Auto) [place] % (Auto) Lymph # [place] # Baso # Seg Neutrophils % Seg Neuts % (Manual) Lymphocytes % (Manual) Monocytes % (Manual) Eosinophils % (Manual) Basophils % (Manual) Nucleated RBC % Seg Neutrophils # Seg Neutrophils # Man Lymphocytes # (Manual) Monocytes # (Manual) Eosinophils # (Manual) Basophils # (Manual) PT INR Fibrinogen dRVVT Confirm Interp Factor V Activity POC ABG pH POC ABG pCO2 POC ABG pO2 ABG pO2 ABG HCO3 ABG Base Excess ABG Hemoglobin Oxyhemoglobin Sodium Potassium Chloride Carbon Dioxide BUN Creatinine Glucose POC Glucose 133 H 146 H 141 H Lactic Acid Calcium Phosphorus Magnesium Direct Bilirubin AST ALT Alkaline Phosphatase Lactate Dehydrogenase Troponin T C-Reactive Protein Total Protein Albumin Prealbumin Triglycerides Cholesterol LDL Cholesterol Direct HDL Cholesterol Urine pH Urine WBC (Auto) Urine Creatinine Urine Total Protein Fluid Total Protein Vancomycin Trough Rheumatoid Factor Complement C4 Miscellaneous Test Crossmatch 11/30/16 11/30/16 11/30/16 04:17 04:17 04:32 WBC 12.0 H RBC 2.80 L Hgb 7.8 L Hct 23.6 L MCV MCH MCHC RDW 16.6 H Plt Count Lymph % (Auto) [place] % (Auto) 11.3 H Lymph # [place] # 1.4 H Baso # Seg Neutrophils % Seg Neuts % (Manual) Lymphocytes % (Manual) Monocytes % (Manual) Eosinophils % (Manual) Basophils % (Manual) Nucleated RBC % Seg Neutrophils # 8.2 H Seg Neutrophils # Man Lymphocytes # (Manual) Monocytes # (Manual) Eosinophils # (Manual) Basophils # (Manual) PT INR Fibrinogen dRVVT Confirm Interp Factor V Activity POC ABG pH POC ABG pCO2 POC ABG pO2 ABG pO2 ABG HCO3 ABG Base Excess ABG Hemoglobin Oxyhemoglobin Sodium 169 H* D Potassium 5.1 H Chloride 121.5 H Carbon Dioxide BUN 34 H Creatinine 1.3 H D Glucose 133 H POC Glucose 131 H Lactic Acid Calcium 10.3 H Phosphorus Magnesium Direct Bilirubin AST ALT Alkaline Phosphatase Lactate Dehydrogenase Troponin T C-Reactive Protein Total Protein Albumin Prealbumin Triglycerides Cholesterol LDL Cholesterol Direct HDL Cholesterol Urine pH Urine WBC (Auto) Urine Creatinine Urine Total Protein Fluid Total Protein Vancomycin Trough Rheumatoid Factor Complement C4 Miscellaneous Test Crossmatch 11/30/16 11/30/16 11/30/16 05:45 11:10 17:26 WBC RBC Hgb Hct MCV MCH MCHC RDW Plt Count Lymph % (Auto) [place] % (Auto) Lymph # [place] # Baso # Seg Neutrophils % Seg Neuts % (Manual) Lymphocytes % (Manual) Monocytes % (Manual) Eosinophils % (Manual) Basophils % (Manual) Nucleated RBC % Seg Neutrophils # Seg Neutrophils # Man Lymphocytes # (Manual) Monocytes # (Manual) Eosinophils # (Manual) Basophils # (Manual) PT INR Fibrinogen dRVVT Confirm Interp Factor V Activity POC ABG pH POC ABG pCO2 POC ABG pO2 ABG pO2 ABG HCO3 ABG Base Excess ABG Hemoglobin Oxyhemoglobin Sodium Potassium Chloride Carbon Dioxide BUN 45 H Creatinine 1.6 H Glucose 131 H POC Glucose 146 H 134 H Lactic Acid Calcium Phosphorus Magnesium Direct Bilirubin AST ALT Alkaline Phosphatase Lactate Dehydrogenase Troponin T C-Reactive Protein Total Protein Albumin Prealbumin Triglycerides Cholesterol LDL Cholesterol Direct HDL Cholesterol Urine pH Urine WBC (Auto) Urine Creatinine Urine Total Protein Fluid Total Protein Vancomycin Trough Rheumatoid Factor Complement C4 Miscellaneous Test Crossmatch 11/30/16 12/01/16 12/01/16 23:35 00:06 03:35 WBC RBC Hgb Hct MCV MCH MCHC RDW Plt Count Lymph % (Auto) [place] % (Auto) Lymph # [place] # Baso # Seg Neutrophils % Seg Neuts % (Manual) Lymphocytes % (Manual) Monocytes % (Manual) Eosinophils % (Manual) Basophils % (Manual) Nucleated RBC % Seg Neutrophils # Seg Neutrophils # Man Lymphocytes # (Manual) Monocytes # (Manual) Eosinophils # (Manual) Basophils # (Manual) PT INR Fibrinogen dRVVT Confirm Interp Factor V Activity POC ABG pH POC ABG pCO2 POC ABG pO2 ABG pO2 ABG HCO3 ABG Base Excess ABG Hemoglobin 6.9 L Oxyhemoglobin Sodium Potassium Chloride Carbon Dioxide BUN 58 H Creatinine 1.8 H Glucose 146 H POC Glucose 151 H Lactic Acid Calcium Phosphorus Magnesium Direct Bilirubin AST ALT Alkaline Phosphatase Lactate Dehydrogenase Troponin T C-Reactive Protein Total Protein Albumin Prealbumin Triglycerides Cholesterol LDL Cholesterol Direct HDL Cholesterol Urine pH Urine WBC (Auto) Urine Creatinine Urine Total Protein Fluid Total Protein Vancomycin Trough Rheumatoid Factor Complement C4 Miscellaneous Test Crossmatch 12/01/16 12/01/16 12/01/16 03:35 05:47 11:52 WBC 12.3 H RBC 2.82 L Hgb 7.8 L Hct 23.7 L MCV MCH MCHC RDW 16.7 H Plt Count Lymph % (Auto) [place] % (Auto) 9.8 H Lymph # [place] # 1.2 H Baso # Seg Neutrophils % Seg Neuts % (Manual) Lymphocytes % (Manual) Monocytes % (Manual) Eosinophils % (Manual) Basophils % (Manual) Nucleated RBC % Seg Neutrophils # 8.4 H Seg Neutrophils # Man Lymphocytes # (Manual) Monocytes # (Manual) Eosinophils # (Manual) Basophils # (Manual) PT INR Fibrinogen dRVVT Confirm Interp Factor V Activity POC ABG pH POC ABG pCO2 POC ABG pO2 ABG pO2 ABG HCO3 ABG Base Excess ABG Hemoglobin Oxyhemoglobin Sodium Potassium Chloride Carbon Dioxide BUN Creatinine Glucose POC Glucose 152 H 152 H Lactic Acid Calcium Phosphorus Magnesium Direct Bilirubin AST ALT Alkaline Phosphatase Lactate Dehydrogenase Troponin T C-Reactive Protein Total Protein Albumin Prealbumin Triglycerides Cholesterol LDL Cholesterol Direct HDL Cholesterol Urine pH Urine WBC (Auto) Urine Creatinine Urine Total Protein Fluid Total Protein Vancomycin Trough Rheumatoid Factor Complement C4 Miscellaneous Test Crossmatch 12/01/16 12/01/16 12/02/16 17:40 23:41 05:00 WBC RBC Hgb Hct MCV MCH MCHC RDW Plt Count Lymph % (Auto) [place] % (Auto) Lymph # [place] # Baso # Seg Neutrophils % Seg Neuts % (Manual) Lymphocytes % (Manual) Monocytes % (Manual) Eosinophils % (Manual) Basophils % (Manual) Nucleated RBC % Seg Neutrophils # Seg Neutrophils # Man Lymphocytes # (Manual) Monocytes # (Manual) Eosinophils # (Manual) Basophils # (Manual) PT INR Fibrinogen dRVVT Confirm Interp Factor V Activity POC ABG pH POC ABG pCO2 POC ABG pO2 ABG pO2 ABG HCO3 ABG Base Excess ABG Hemoglobin Oxyhemoglobin Sodium Potassium Chloride Carbon Dioxide BUN 45 H Creatinine Glucose 115 H POC Glucose 140 H 144 H Lactic Acid Calcium Phosphorus Magnesium Direct Bilirubin AST ALT Alkaline Phosphatase Lactate Dehydrogenase Troponin T C-Reactive Protein Total Protein Albumin Prealbumin Triglycerides Cholesterol LDL Cholesterol Direct HDL Cholesterol Urine pH Urine WBC (Auto) Urine Creatinine Urine Total Protein Fluid Total Protein Vancomycin Trough Rheumatoid Factor Complement C4 Miscellaneous Test Crossmatch 12/02/16 12/02/16 12/02/16 05:31 11:20 17:38 WBC RBC Hgb Hct MCV MCH MCHC RDW Plt Count Lymph % (Auto) [place] % (Auto) Lymph # [place] # Baso # Seg Neutrophils % Seg Neuts % (Manual) Lymphocytes % (Manual) Monocytes % (Manual) Eosinophils % (Manual) Basophils % (Manual) Nucleated RBC % Seg Neutrophils # Seg Neutrophils # Man Lymphocytes # (Manual) Monocytes # (Manual) Eosinophils # (Manual) Basophils # (Manual) PT INR Fibrinogen dRVVT Confirm Interp Factor V Activity POC ABG pH POC ABG pCO2 POC ABG pO2 ABG pO2 ABG HCO3 ABG Base Excess ABG Hemoglobin Oxyhemoglobin Sodium Potassium Chloride Carbon Dioxide BUN Creatinine Glucose POC Glucose 136 H 177 H 139 H Lactic Acid Calcium Phosphorus Magnesium Direct Bilirubin AST ALT Alkaline Phosphatase Lactate Dehydrogenase Troponin T C-Reactive Protein Total Protein Albumin Prealbumin Triglycerides Cholesterol LDL Cholesterol Direct HDL Cholesterol Urine pH Urine WBC (Auto) Urine Creatinine Urine Total Protein Fluid Total Protein Vancomycin Trough Rheumatoid Factor Complement C4 Miscellaneous Test Crossmatch 12/02/16 12/03/16 12/03/16 23:43 04:00 04:00 WBC 20.4 H RBC 2.74 L Hgb 7.4 L Hct 23.6 L MCV MCH 27 L MCHC RDW 17.1 H Plt Count Lymph % (Auto) [place] % (Auto) Lymph # [place] # Baso # Seg Neutrophils % Seg Neuts % (Manual) 31.0 L Lymphocytes % (Manual) Monocytes % (Manual) Eosinophils % (Manual) Basophils % (Manual) Nucleated RBC % Seg Neutrophils # Seg Neutrophils # Man Lymphocytes # (Manual) Monocytes # (Manual) Eosinophils # (Manual) Basophils # (Manual) PT INR Fibrinogen dRVVT Confirm Interp Factor V Activity POC ABG pH POC ABG pCO2 POC ABG pO2 ABG pO2 ABG HCO3 ABG Base Excess ABG Hemoglobin Oxyhemoglobin Sodium Potassium Chloride Carbon Dioxide BUN 61 H Creatinine 1.6 H Glucose 119 H POC Glucose 158 H Lactic Acid Calcium Phosphorus Magnesium Direct Bilirubin AST ALT Alkaline Phosphatase Lactate Dehydrogenase Troponin T C-Reactive Protein Total Protein Albumin Prealbumin Triglycerides Cholesterol LDL Cholesterol Direct HDL Cholesterol Urine pH Urine WBC (Auto) Urine Creatinine Urine Total Protein Fluid Total Protein Vancomycin Trough Rheumatoid Factor Complement C4 Miscellaneous Test Crossmatch 12/03/16 12/03/16 12/03/16 05:02 12:11 18:16 WBC RBC Hgb Hct MCV MCH MCHC RDW Plt Count Lymph % (Auto) [place] % (Auto) Lymph # [place] # Baso # Seg Neutrophils % Seg Neuts % (Manual) Lymphocytes % (Manual) Monocytes % (Manual) Eosinophils % (Manual) Basophils % (Manual) Nucleated RBC % Seg Neutrophils # Seg Neutrophils # Man Lymphocytes # (Manual) Monocytes # (Manual) Eosinophils # (Manual) Basophils # (Manual) PT INR Fibrinogen dRVVT Confirm Interp Factor V Activity POC ABG pH POC ABG pCO2 POC ABG pO2 ABG pO2 ABG HCO3 ABG Base Excess ABG Hemoglobin Oxyhemoglobin Sodium Potassium Chloride Carbon Dioxide BUN Creatinine Glucose POC Glucose 146 H 157 H 124 H Lactic Acid Calcium Phosphorus Magnesium Direct Bilirubin AST ALT Alkaline Phosphatase Lactate Dehydrogenase Troponin T C-Reactive Protein Total Protein Albumin Prealbumin Triglycerides Cholesterol LDL Cholesterol Direct HDL Cholesterol Urine pH Urine WBC (Auto) Urine Creatinine Urine Total Protein Fluid Total Protein Vancomycin Trough Rheumatoid Factor Complement C4 Miscellaneous Test Crossmatch 12/03/16 12/04/16 12/04/16 23:41 04:00 04:45 WBC RBC Hgb Hct MCV MCH MCHC RDW Plt Count Lymph % (Auto) [place] % (Auto) Lymph # [place] # Baso # Seg Neutrophils % Seg Neuts % (Manual) Lymphocytes % (Manual) Monocytes % (Manual) Eosinophils % (Manual) Basophils % (Manual) Nucleated RBC % Seg Neutrophils # Seg Neutrophils # Man Lymphocytes # (Manual) Monocytes # (Manual) Eosinophils # (Manual) Basophils # (Manual) PT INR Fibrinogen dRVVT Confirm Interp Factor V Activity POC ABG pH POC ABG pCO2 POC ABG pO2 ABG pO2 ABG HCO3 ABG Base Excess ABG Hemoglobin Oxyhemoglobin Sodium Potassium Chloride Carbon Dioxide BUN 76 H Creatinine 1.6 H Glucose POC Glucose 130 H 136 H Lactic Acid Calcium Phosphorus Magnesium Direct Bilirubin AST ALT Alkaline Phosphatase 155 H Lactate Dehydrogenase Troponin T C-Reactive Protein Total Protein 5.5 L Albumin 1.5 L Prealbumin Triglycerides Cholesterol LDL Cholesterol Direct HDL Cholesterol Urine pH Urine WBC (Auto) Urine Creatinine Urine Total Protein Fluid Total Protein Vancomycin Trough Rheumatoid Factor Complement C4 Miscellaneous Test Crossmatch 12/04/16 12/04/16 12/05/16 12:08 17:23 00:10 WBC RBC Hgb Hct MCV MCH MCHC RDW Plt Count Lymph % (Auto) [place] % (Auto) Lymph # [place] # Baso # Seg Neutrophils % Seg Neuts % (Manual) Lymphocytes % (Manual) Monocytes % (Manual) Eosinophils % (Manual) Basophils % (Manual) Nucleated RBC % Seg Neutrophils # Seg Neutrophils # Man Lymphocytes # (Manual) Monocytes # (Manual) Eosinophils # (Manual) Basophils # (Manual) PT INR Fibrinogen dRVVT Confirm Interp Factor V Activity POC ABG pH POC ABG pCO2 POC ABG pO2 ABG pO2 ABG HCO3 ABG Base Excess ABG Hemoglobin Oxyhemoglobin Sodium Potassium Chloride Carbon Dioxide BUN Creatinine Glucose POC Glucose 114 H 129 H 124 H Lactic Acid Calcium Phosphorus Magnesium Direct Bilirubin AST ALT Alkaline Phosphatase Lactate Dehydrogenase Troponin T C-Reactive Protein Total Protein Albumin Prealbumin Triglycerides Cholesterol LDL Cholesterol Direct HDL Cholesterol Urine pH Urine WBC (Auto) Urine Creatinine Urine Total Protein Fluid Total Protein Vancomycin Trough Rheumatoid Factor Complement C4 Miscellaneous Test Crossmatch 12/05/16 12/05/16 12/05/16 05:00 05:00 05:18 WBC RBC Hgb Hct MCV MCH MCHC RDW Plt Count Lymph % (Auto) [place] % (Auto) Lymph # [place] # Baso # Seg Neutrophils % Seg Neuts % (Manual) Lymphocytes % (Manual) Monocytes % (Manual) Eosinophils % (Manual) Basophils % (Manual) Nucleated RBC % Seg Neutrophils # Seg Neutrophils # Man Lymphocytes # (Manual) Monocytes # (Manual) Eosinophils # (Manual) Basophils # (Manual) PT INR Fibrinogen dRVVT Confirm Interp Factor V Activity POC ABG pH POC ABG pCO2 POC ABG pO2 ABG pO2 ABG HCO3 ABG Base Excess ABG Hemoglobin Oxyhemoglobin Sodium Potassium Chloride Carbon Dioxide 21 L BUN 85 H Creatinine 1.9 H Glucose 131 H POC Glucose 154 H Lactic Acid Calcium Phosphorus Magnesium Direct Bilirubin AST ALT Alkaline Phosphatase Lactate Dehydrogenase Troponin T C-Reactive Protein 19.30 H Total Protein Albumin Prealbumin Triglycerides Cholesterol LDL Cholesterol Direct HDL Cholesterol Urine pH Urine WBC (Auto) Urine Creatinine Urine Total Protein Fluid Total Protein Vancomycin Trough Rheumatoid Factor Complement C4 Miscellaneous Test Crossmatch 12/05/16 12/05/16 12/05/16 11:43 17:46 23:25 WBC RBC Hgb Hct MCV MCH MCHC RDW Plt Count Lymph % (Auto) [place] % (Auto) Lymph # [place] # Baso # Seg Neutrophils % Seg Neuts % (Manual) Lymphocytes % (Manual) Monocytes % (Manual) Eosinophils % (Manual) Basophils % (Manual) Nucleated RBC % Seg Neutrophils # Seg Neutrophils # Man Lymphocytes # (Manual) Monocytes # (Manual) Eosinophils # (Manual) Basophils # (Manual) PT INR Fibrinogen dRVVT Confirm Interp Factor V Activity POC ABG pH POC ABG pCO2 POC ABG pO2 ABG pO2 ABG HCO3 ABG Base Excess ABG Hemoglobin Oxyhemoglobin Sodium Potassium Chloride Carbon Dioxide BUN Creatinine Glucose POC Glucose 117 H 113 H 111 H Lactic Acid Calcium Phosphorus Magnesium Direct Bilirubin AST ALT Alkaline Phosphatase Lactate Dehydrogenase Troponin T C-Reactive Protein Total Protein Albumin Prealbumin Triglycerides Cholesterol LDL Cholesterol Direct HDL Cholesterol Urine pH Urine WBC (Auto) Urine Creatinine Urine Total Protein Fluid Total Protein Vancomycin Trough Rheumatoid Factor Complement C4 Miscellaneous Test Crossmatch 12/05/16 12/06/16 12/06/16 Unknown 04:58 06:00 WBC RBC Hgb Hct MCV MCH MCHC RDW Plt Count Lymph % (Auto) [place] % (Auto) Lymph # [place] # Baso # Seg Neutrophils % Seg Neuts % (Manual) Lymphocytes % (Manual) Monocytes % (Manual) Eosinophils % (Manual) Basophils % (Manual) Nucleated RBC % Seg Neutrophils # Seg Neutrophils # Man Lymphocytes # (Manual) Monocytes # (Manual) Eosinophils # (Manual) Basophils # (Manual) PT INR Fibrinogen dRVVT Confirm Interp Factor V Activity POC ABG pH POC ABG pCO2 POC ABG pO2 ABG pO2 75.2 L ABG HCO3 ABG Base Excess -3.4 L ABG Hemoglobin 7.4 L Oxyhemoglobin 94.5 L Sodium Potassium Chloride Carbon Dioxide 20 L BUN 99 H Creatinine 2.1 H Glucose 126 H POC Glucose 145 H Lactic Acid Calcium Phosphorus 4.80 H Magnesium Direct Bilirubin AST ALT Alkaline Phosphatase Lactate Dehydrogenase Troponin T C-Reactive Protein Total Protein Albumin Prealbumin Triglycerides Cholesterol LDL Cholesterol Direct HDL Cholesterol Urine pH Urine WBC (Auto) Urine Creatinine Urine Total Protein Fluid Total Protein Vancomycin Trough Rheumatoid Factor Complement C4 Miscellaneous Test Crossmatch 12/06/16 12/06/16 12/06/16 06:46 11:54 17:55 WBC RBC Hgb 8.3 L Hct 26.4 L MCV MCH MCHC RDW Plt Count Lymph % (Auto) [place] % (Auto) Lymph # [place] # Baso # Seg Neutrophils % Seg Neuts % (Manual) Lymphocytes % (Manual) Monocytes % (Manual) Eosinophils % (Manual) Basophils % (Manual) Nucleated RBC % Seg Neutrophils # Seg Neutrophils # Man Lymphocytes # (Manual) Monocytes # (Manual) Eosinophils # (Manual) Basophils # (Manual) PT INR Fibrinogen dRVVT Confirm Interp Factor V Activity POC ABG pH POC ABG pCO2 POC ABG pO2 ABG pO2 ABG HCO3 ABG Base Excess ABG Hemoglobin Oxyhemoglobin Sodium Potassium Chloride Carbon Dioxide BUN Creatinine Glucose POC Glucose 126 H 157 H Lactic Acid Calcium Phosphorus Magnesium Direct Bilirubin AST ALT Alkaline Phosphatase Lactate Dehydrogenase Troponin T C-Reactive Protein Total Protein Albumin Prealbumin Triglycerides Cholesterol LDL Cholesterol Direct HDL Cholesterol Urine pH Urine WBC (Auto) Urine Creatinine Urine Total Protein Fluid Total Protein Vancomycin Trough Rheumatoid Factor Complement C4 Miscellaneous Test Crossmatch 12/06/16 12/07/16 12/07/16 23:59 05:34 06:30 WBC RBC Hgb Hct MCV MCH MCHC RDW Plt Count Lymph % (Auto) [place] % (Auto) Lymph # [place] # Baso # Seg Neutrophils % Seg Neuts % (Manual) Lymphocytes % (Manual) Monocytes % (Manual) Eosinophils % (Manual) Basophils % (Manual) Nucleated RBC % Seg Neutrophils # Seg Neutrophils # Man Lymphocytes # (Manual) Monocytes # (Manual) Eosinophils # (Manual) Basophils # (Manual) PT INR Fibrinogen dRVVT Confirm Interp Factor V Activity POC ABG pH POC ABG pCO2 POC ABG pO2 ABG pO2 ABG HCO3 ABG Base Excess ABG Hemoglobin Oxyhemoglobin Sodium Potassium Chloride Carbon Dioxide BUN 67 H Creatinine 1.4 H Glucose 126 H POC Glucose 129 H 129 H Lactic Acid Calcium Phosphorus Magnesium Direct Bilirubin AST ALT Alkaline Phosphatase Lactate Dehydrogenase Troponin T C-Reactive Protein Total Protein Albumin Prealbumin Triglycerides Cholesterol LDL Cholesterol Direct HDL Cholesterol Urine pH Urine WBC (Auto) Urine Creatinine Urine Total Protein Fluid Total Protein Vancomycin Trough Rheumatoid Factor Complement C4 Miscellaneous Test Crossmatch 12/07/16 12/07/16 12/07/16 06:30 08:00 09:45 WBC 18.8 H RBC 2.52 L Hgb 6.9 L 6.8 L Hct 21.2 L 21.1 L MCV MCH 27 L MCHC RDW 18.0 H Plt Count Lymph % (Auto) [place] % (Auto) 9.9 H Lymph # [place] # 1.9 H Baso # Seg Neutrophils % 71.8 H Seg Neuts % (Manual) Lymphocytes % (Manual) Monocytes % (Manual) Eosinophils % (Manual) Basophils % (Manual) Nucleated RBC % Seg Neutrophils # 13.5 H Seg Neutrophils # Man Lymphocytes # (Manual) Monocytes # (Manual) Eosinophils # (Manual) Basophils # (Manual) PT INR Fibrinogen dRVVT Confirm Interp Factor V Activity POC ABG pH POC ABG pCO2 POC ABG pO2 ABG pO2 ABG HCO3 ABG Base Excess ABG Hemoglobin Oxyhemoglobin Sodium Potassium Chloride Carbon Dioxide BUN Creatinine Glucose POC Glucose Lactic Acid Calcium Phosphorus Magnesium Direct Bilirubin AST ALT Alkaline Phosphatase Lactate Dehydrogenase Troponin T C-Reactive Protein Total Protein Albumin Prealbumin Triglycerides Cholesterol LDL Cholesterol Direct HDL Cholesterol Urine pH Urine WBC (Auto) Urine Creatinine Urine Total Protein Fluid Total Protein Vancomycin Trough Rheumatoid Factor Complement C4 Miscellaneous Test Crossmatch See Detail 12/07/16 12/07/16 12/07/16 11:44 18:19 23:59 WBC RBC Hgb Hct MCV MCH MCHC RDW Plt Count Lymph % (Auto) [place] % (Auto) Lymph # [place] # Baso # Seg Neutrophils % Seg Neuts % (Manual) Lymphocytes % (Manual) Monocytes % (Manual) Eosinophils % (Manual) Basophils % (Manual) Nucleated RBC % Seg Neutrophils # Seg Neutrophils # Man Lymphocytes # (Manual) Monocytes # (Manual) Eosinophils # (Manual) Basophils # (Manual) PT INR Fibrinogen dRVVT Confirm Interp Factor V Activity POC ABG pH POC ABG pCO2 POC ABG pO2 ABG pO2 ABG HCO3 ABG Base Excess ABG Hemoglobin Oxyhemoglobin Sodium Potassium Chloride Carbon Dioxide BUN Creatinine Glucose POC Glucose 137 H 138 H 133 H Lactic Acid Calcium Phosphorus Magnesium Direct Bilirubin AST ALT Alkaline Phosphatase Lactate Dehydrogenase Troponin T C-Reactive Protein Total Protein Albumin Prealbumin Triglycerides Cholesterol LDL Cholesterol Direct HDL Cholesterol Urine pH Urine WBC (Auto) Urine Creatinine Urine Total Protein Fluid Total Protein Vancomycin Trough Rheumatoid Factor Complement C4 Miscellaneous Test Crossmatch 12/08/16 12/08/16 12/08/16 05:25 05:30 05:30 WBC 23.8 H RBC 2.88 L Hgb 8.1 L Hct 24.3 L MCV MCH MCHC RDW 16.7 H Plt Count Lymph % (Auto) [place] % (Auto) Lymph # [place] # Baso # Seg Neutrophils % Seg Neuts % (Manual) 76.0 H Lymphocytes % (Manual) 9.0 L Monocytes % (Manual) 9.0 H Eosinophils % (Manual) Basophils % (Manual) Nucleated RBC % Seg Neutrophils # Seg Neutrophils # Man 18.1 H Lymphocytes # (Manual) Monocytes # (Manual) 2.1 H Eosinophils # (Manual) Basophils # (Manual) PT INR Fibrinogen dRVVT Confirm Interp Factor V Activity POC ABG pH POC ABG pCO2 POC ABG pO2 ABG pO2 ABG HCO3 ABG Base Excess ABG Hemoglobin Oxyhemoglobin Sodium Potassium Chloride Carbon Dioxide 21 L BUN 76 H Creatinine 1.6 H Glucose 133 H POC Glucose 177 H Lactic Acid Calcium Phosphorus Magnesium Direct Bilirubin AST ALT Alkaline Phosphatase Lactate Dehydrogenase Troponin T C-Reactive Protein Total Protein Albumin Prealbumin Triglycerides Cholesterol LDL Cholesterol Direct HDL Cholesterol Urine pH Urine WBC (Auto) Urine Creatinine Urine Total Protein Fluid Total Protein Vancomycin Trough Rheumatoid Factor Complement C4 Miscellaneous Test Crossmatch 12/08/16 12/08/16 12/09/16 11:45 18:00 00:00 WBC RBC Hgb Hct MCV MCH MCHC RDW Plt Count Lymph % (Auto) [place] % (Auto) Lymph # [place] # Baso # Seg Neutrophils % Seg Neuts % (Manual) Lymphocytes % (Manual) Monocytes % (Manual) Eosinophils % (Manual) Basophils % (Manual) Nucleated RBC % Seg Neutrophils # Seg Neutrophils # Man Lymphocytes # (Manual) Monocytes # (Manual) Eosinophils # (Manual) Basophils # (Manual) PT INR Fibrinogen dRVVT Confirm Interp Factor V Activity POC ABG pH POC ABG pCO2 POC ABG pO2 ABG pO2 ABG HCO3 ABG Base Excess ABG Hemoglobin Oxyhemoglobin Sodium Potassium Chloride Carbon Dioxide BUN Creatinine Glucose POC Glucose 163 H 123 H 137 H Lactic Acid Calcium Phosphorus Magnesium Direct Bilirubin AST ALT Alkaline Phosphatase Lactate Dehydrogenase Troponin T C-Reactive Protein Total Protein Albumin Prealbumin Triglycerides Cholesterol LDL Cholesterol Direct HDL Cholesterol Urine pH Urine WBC (Auto) Urine Creatinine Urine Total Protein Fluid Total Protein Vancomycin Trough Rheumatoid Factor Complement C4 Miscellaneous Test Crossmatch 12/09/16 12/09/16 12/09/16 05:34 06:00 06:00 WBC 15.5 H RBC 2.87 L Hgb 8.0 L Hct 24.2 L MCV MCH MCHC RDW 17.2 H Plt Count Lymph % (Auto) [place] % (Auto) 11.6 H Lymph # [place] # 1.8 H Baso # Seg Neutrophils % 70.8 H Seg Neuts % (Manual) Lymphocytes % (Manual) Monocytes % (Manual) Eosinophils % (Manual) Basophils % (Manual) Nucleated RBC % Seg Neutrophils # 11.0 H Seg Neutrophils # Man Lymphocytes # (Manual) Monocytes # (Manual) Eosinophils # (Manual) Basophils # (Manual) PT INR Fibrinogen dRVVT Confirm Interp Factor V Activity POC ABG pH POC ABG pCO2 POC ABG pO2 ABG pO2 ABG HCO3 ABG Base Excess ABG Hemoglobin Oxyhemoglobin Sodium Potassium Chloride Carbon Dioxide BUN 51 H Creatinine Glucose 117 H POC Glucose 136 H Lactic Acid Calcium Phosphorus Magnesium Direct Bilirubin AST ALT Alkaline Phosphatase Lactate Dehydrogenase Troponin T C-Reactive Protein Total Protein Albumin Prealbumin Triglycerides Cholesterol LDL Cholesterol Direct HDL Cholesterol Urine pH Urine WBC (Auto) Urine Creatinine Urine Total Protein Fluid Total Protein Vancomycin Trough Rheumatoid Factor Complement C4 Miscellaneous Test Crossmatch 12/09/16 12/09/16 12/09/16 12:29 17:52 23:10 WBC RBC Hgb Hct MCV MCH MCHC RDW Plt Count Lymph % (Auto) [place] % (Auto) Lymph # [place] # Baso # Seg Neutrophils % Seg Neuts % (Manual) Lymphocytes % (Manual) Monocytes % (Manual) Eosinophils % (Manual) Basophils % (Manual) Nucleated RBC % Seg Neutrophils # Seg Neutrophils # Man Lymphocytes # (Manual) Monocytes # (Manual) Eosinophils # (Manual) Basophils # (Manual) PT INR Fibrinogen dRVVT Confirm Interp Factor V Activity POC ABG pH POC ABG pCO2 POC ABG pO2 ABG pO2 ABG HCO3 ABG Base Excess ABG Hemoglobin Oxyhemoglobin Sodium Potassium Chloride Carbon Dioxide BUN Creatinine Glucose POC Glucose 139 H 140 H 129 H Lactic Acid Calcium Phosphorus Magnesium Direct Bilirubin AST ALT Alkaline Phosphatase Lactate Dehydrogenase Troponin T C-Reactive Protein Total Protein Albumin Prealbumin Triglycerides Cholesterol LDL Cholesterol Direct HDL Cholesterol Urine pH Urine WBC (Auto) Urine Creatinine Urine Total Protein Fluid Total Protein Vancomycin Trough Rheumatoid Factor Complement C4 Miscellaneous Test Crossmatch 12/10/16 12/10/16 12/10/16 05:00 05:00 06:54 WBC 15.7 H RBC 2.87 L Hgb 8.2 L Hct 24.4 L MCV MCH MCHC RDW 17.2 H Plt Count Lymph % (Auto) [place] % (Auto) 8.3 H Lymph # [place] # 1.3 H Baso # Seg Neutrophils % 72.8 H Seg Neuts % (Manual) Lymphocytes % (Manual) Monocytes % (Manual) Eosinophils % (Manual) Basophils % (Manual) Nucleated RBC % Seg Neutrophils # 11.4 H Seg Neutrophils # Man Lymphocytes # (Manual) Monocytes # (Manual) Eosinophils # (Manual) Basophils # (Manual) PT INR Fibrinogen dRVVT Confirm Interp Factor V Activity POC ABG pH POC ABG pCO2 POC ABG pO2 ABG pO2 ABG HCO3 ABG Base Excess ABG Hemoglobin Oxyhemoglobin Sodium Potassium Chloride Carbon Dioxide BUN 64 H Creatinine 1.4 H Glucose 134 H POC Glucose 154 H Lactic Acid Calcium Phosphorus Magnesium Direct Bilirubin AST ALT Alkaline Phosphatase Lactate Dehydrogenase Troponin T C-Reactive Protein Total Protein Albumin Prealbumin Triglycerides Cholesterol LDL Cholesterol Direct HDL Cholesterol Urine pH Urine WBC (Auto) Urine Creatinine Urine Total Protein Fluid Total Protein Vancomycin Trough Rheumatoid Factor Complement C4 Miscellaneous Test Crossmatch 12/10/16 12/10/16 12/10/16 11:58 17:29 23:52 WBC RBC Hgb Hct MCV MCH MCHC RDW Plt Count Lymph % (Auto) [place] % (Auto) Lymph # [place] # Baso # Seg Neutrophils % Seg Neuts % (Manual) Lymphocytes % (Manual) Monocytes % (Manual) Eosinophils % (Manual) Basophils % (Manual) Nucleated RBC % Seg Neutrophils # Seg Neutrophils # Man Lymphocytes # (Manual) Monocytes # (Manual) Eosinophils # (Manual) Basophils # (Manual) PT INR Fibrinogen dRVVT Confirm Interp Factor V Activity POC ABG pH POC ABG pCO2 POC ABG pO2 ABG pO2 ABG HCO3 ABG Base Excess ABG Hemoglobin Oxyhemoglobin Sodium Potassium Chloride Carbon Dioxide BUN Creatinine Glucose POC Glucose 144 H 163 H 125 H Lactic Acid Calcium Phosphorus Magnesium Direct Bilirubin AST ALT Alkaline Phosphatase Lactate Dehydrogenase Troponin T C-Reactive Protein Total Protein Albumin Prealbumin Triglycerides Cholesterol LDL Cholesterol Direct HDL Cholesterol Urine pH Urine WBC (Auto) Urine Creatinine Urine Total Protein Fluid Total Protein Vancomycin Trough Rheumatoid Factor Complement C4 Miscellaneous Test Crossmatch 12/11/16 12/11/16 12/11/16 05:38 06:30 06:30 WBC 14.4 H RBC 2.76 L Hgb 7.7 L Hct 23.4 L MCV MCH MCHC RDW 17.2 H Plt Count Lymph % (Auto) [place] % (Auto) 8.8 H Lymph # [place] # 1.3 H Baso # Seg Neutrophils % 72.5 H Seg Neuts % (Manual) Lymphocytes % (Manual) Monocytes % (Manual) Eosinophils % (Manual) Basophils % (Manual) Nucleated RBC % Seg Neutrophils # 10.5 H Seg Neutrophils # Man Lymphocytes # (Manual) Monocytes # (Manual) Eosinophils # (Manual) Basophils # (Manual) PT INR Fibrinogen dRVVT Confirm Interp Factor V Activity POC ABG pH POC ABG pCO2 POC ABG pO2 ABG pO2 ABG HCO3 ABG Base Excess ABG Hemoglobin Oxyhemoglobin Sodium Potassium Chloride Carbon Dioxide BUN 43 H Creatinine Glucose 124 H POC Glucose 141 H Lactic Acid Calcium 8.3 L Phosphorus Magnesium 1.60 L Direct Bilirubin AST ALT Alkaline Phosphatase Lactate Dehydrogenase Troponin T C-Reactive Protein Total Protein Albumin Prealbumin Triglycerides Cholesterol LDL Cholesterol Direct HDL Cholesterol Urine pH Urine WBC (Auto) Urine Creatinine Urine Total Protein Fluid Total Protein Vancomycin Trough Rheumatoid Factor Complement C4 Miscellaneous Test Crossmatch 12/11/16 12/11/16 12/11/16 11:15 17:59 23:48 WBC RBC Hgb Hct MCV MCH MCHC RDW Plt Count Lymph % (Auto) [place] % (Auto) Lymph # [place] # Baso # Seg Neutrophils % Seg Neuts % (Manual) Lymphocytes % (Manual) Monocytes % (Manual) Eosinophils % (Manual) Basophils % (Manual) Nucleated RBC % Seg Neutrophils # Seg Neutrophils # Man Lymphocytes # (Manual) Monocytes # (Manual) Eosinophils # (Manual) Basophils # (Manual) PT INR Fibrinogen dRVVT Confirm Interp Factor V Activity POC ABG pH POC ABG pCO2 POC ABG pO2 ABG pO2 ABG HCO3 ABG Base Excess ABG Hemoglobin Oxyhemoglobin Sodium Potassium Chloride Carbon Dioxide BUN Creatinine Glucose POC Glucose 188 H 106 H 119 H Lactic Acid Calcium Phosphorus Magnesium Direct Bilirubin AST ALT Alkaline Phosphatase Lactate Dehydrogenase Troponin T C-Reactive Protein Total Protein Albumin Prealbumin Triglycerides Cholesterol LDL Cholesterol Direct HDL Cholesterol Urine pH Urine WBC (Auto) Urine Creatinine Urine Total Protein Fluid Total Protein Vancomycin Trough Rheumatoid Factor Complement C4 Miscellaneous Test Crossmatch 12/12/16 12/12/16 12/12/16 05:00 06:01 12:20 WBC 16.7 H RBC 2.87 L Hgb 8.0 L Hct 24.2 L MCV MCH MCHC RDW 17.6 H Plt Count Lymph % (Auto) [place] % (Auto) Lymph # [place] # 1.2 H Baso # Seg Neutrophils % 75.3 H Seg Neuts % (Manual) Lymphocytes % (Manual) Monocytes % (Manual) Eosinophils % (Manual) Basophils % (Manual) Nucleated RBC % Seg Neutrophils # 12.6 H Seg Neutrophils # Man Lymphocytes # (Manual) Monocytes # (Manual) Eosinophils # (Manual) Basophils # (Manual) PT INR Fibrinogen dRVVT Confirm Interp Factor V Activity POC ABG pH POC ABG pCO2 POC ABG pO2 ABG pO2 ABG HCO3 ABG Base Excess ABG Hemoglobin Oxyhemoglobin Sodium Potassium Chloride Carbon Dioxide BUN Creatinine Glucose POC Glucose 134 H 149 H Lactic Acid Calcium Phosphorus Magnesium Direct Bilirubin AST ALT Alkaline Phosphatase Lactate Dehydrogenase Troponin T C-Reactive Protein Total Protein Albumin Prealbumin Triglycerides Cholesterol LDL Cholesterol Direct HDL Cholesterol Urine pH Urine WBC (Auto) Urine Creatinine Urine Total Protein Fluid Total Protein Vancomycin Trough Rheumatoid Factor Complement C4 Miscellaneous Test Crossmatch 12/12/16 12/12/16 12/12/16 17:38 23:01 Unknown WBC RBC Hgb Hct MCV MCH MCHC RDW Plt Count Lymph % (Auto) [place] % (Auto) Lymph # [place] # Baso # Seg Neutrophils % Seg Neuts % (Manual) Lymphocytes % (Manual) Monocytes % (Manual) Eosinophils % (Manual) Basophils % (Manual) Nucleated RBC % Seg Neutrophils # Seg Neutrophils # Man Lymphocytes # (Manual) Monocytes # (Manual) Eosinophils # (Manual) Basophils # (Manual) PT INR Fibrinogen dRVVT Confirm Interp Factor V Activity POC ABG pH POC ABG pCO2 POC ABG pO2 ABG pO2 ABG HCO3 ABG Base Excess ABG Hemoglobin Oxyhemoglobin Sodium Potassium Chloride Carbon Dioxide BUN 60 H Creatinine 1.3 H Glucose 126 H POC Glucose 127 H 144 H Lactic Acid Calcium Phosphorus Magnesium Direct Bilirubin AST ALT Alkaline Phosphatase Lactate Dehydrogenase Troponin T C-Reactive Protein Total Protein Albumin Prealbumin Triglycerides Cholesterol LDL Cholesterol Direct HDL Cholesterol Urine pH Urine WBC (Auto) Urine Creatinine Urine Total Protein Fluid Total Protein Vancomycin Trough Rheumatoid Factor Complement C4 Miscellaneous Test Crossmatch 12/13/16 12/13/16 12/13/16 04:00 04:00 05:19 WBC 18.7 H RBC 2.89 L Hgb 8.3 L Hct 24.6 L MCV MCH MCHC RDW 17.5 H Plt Count Lymph % (Auto) [place] % (Auto) Lymph # [place] # 1.3 H Baso # Seg Neutrophils % 71.5 H Seg Neuts % (Manual) Lymphocytes % (Manual) Monocytes % (Manual) Eosinophils % (Manual) Basophils % (Manual) Nucleated RBC % Seg Neutrophils # 13.4 H Seg Neutrophils # Man Lymphocytes # (Manual) Monocytes # (Manual) Eosinophils # (Manual) Basophils # (Manual) PT INR Fibrinogen dRVVT Confirm Interp Factor V Activity POC ABG pH POC ABG pCO2 POC ABG pO2 ABG pO2 ABG HCO3 ABG Base Excess ABG Hemoglobin Oxyhemoglobin Sodium Potassium Chloride Carbon Dioxide BUN 73 H Creatinine 1.5 H Glucose 141 H POC Glucose 171 H Lactic Acid Calcium Phosphorus Magnesium Direct Bilirubin AST ALT Alkaline Phosphatase Lactate Dehydrogenase Troponin T C-Reactive Protein Total Protein Albumin Prealbumin Triglycerides Cholesterol LDL Cholesterol Direct HDL Cholesterol Urine pH Urine WBC (Auto) Urine Creatinine Urine Total Protein Fluid Total Protein Vancomycin Trough Rheumatoid Factor Complement C4 Miscellaneous Test Crossmatch 12/13/16 12/13/16 12/14/16 12:28 16:48 00:01 WBC RBC Hgb Hct MCV MCH MCHC RDW Plt Count Lymph % (Auto) [place] % (Auto) Lymph # [place] # Baso # Seg Neutrophils % Seg Neuts % (Manual) Lymphocytes % (Manual) Monocytes % (Manual) Eosinophils % (Manual) Basophils % (Manual) Nucleated RBC % Seg Neutrophils # Seg Neutrophils # Man Lymphocytes # (Manual) Monocytes # (Manual) Eosinophils # (Manual) Basophils # (Manual) PT INR Fibrinogen dRVVT Confirm Interp Factor V Activity POC ABG pH POC ABG pCO2 POC ABG pO2 ABG pO2 ABG HCO3 ABG Base Excess ABG Hemoglobin Oxyhemoglobin Sodium Potassium Chloride Carbon Dioxide BUN Creatinine Glucose POC Glucose 206 H 173 H 139 H Lactic Acid Calcium Phosphorus Magnesium Direct Bilirubin AST ALT Alkaline Phosphatase Lactate Dehydrogenase Troponin T C-Reactive Protein Total Protein Albumin Prealbumin Triglycerides Cholesterol LDL Cholesterol Direct HDL Cholesterol Urine pH Urine WBC (Auto) Urine Creatinine Urine Total Protein Fluid Total Protein Vancomycin Trough Rheumatoid Factor Complement C4 Miscellaneous Test Crossmatch 12/14/16 12/14/16 12/14/16 05:16 06:10 11:17 WBC RBC Hgb Hct MCV MCH MCHC RDW Plt Count Lymph % (Auto) [place] % (Auto) Lymph # [place] # Baso # Seg Neutrophils % Seg Neuts % (Manual) Lymphocytes % (Manual) Monocytes % (Manual) Eosinophils % (Manual) Basophils % (Manual) Nucleated RBC % Seg Neutrophils # Seg Neutrophils # Man Lymphocytes # (Manual) Monocytes # (Manual) Eosinophils # (Manual) Basophils # (Manual) PT INR Fibrinogen dRVVT Confirm Interp Factor V Activity POC ABG pH POC ABG pCO2 POC ABG pO2 ABG pO2 ABG HCO3 ABG Base Excess ABG Hemoglobin Oxyhemoglobin Sodium Potassium Chloride Carbon Dioxide BUN 57 H Creatinine 1.4 H Glucose 135 H POC Glucose 158 H 137 H Lactic Acid Calcium Phosphorus Magnesium Direct Bilirubin AST ALT Alkaline Phosphatase Lactate Dehydrogenase Troponin T C-Reactive Protein Total Protein Albumin Prealbumin Triglycerides Cholesterol LDL Cholesterol Direct HDL Cholesterol Urine pH Urine WBC (Auto) Urine Creatinine Urine Total Protein Fluid Total Protein Vancomycin Trough Rheumatoid Factor Complement C4 Miscellaneous Test Crossmatch 12/14/16 12/14/16 12/15/16 17:52 23:27 04:00 WBC RBC Hgb Hct MCV MCH MCHC RDW Plt Count Lymph % (Auto) [place] % (Auto) Lymph # [place] # Baso # Seg Neutrophils % Seg Neuts % (Manual) Lymphocytes % (Manual) Monocytes % (Manual) Eosinophils % (Manual) Basophils % (Manual) Nucleated RBC % Seg Neutrophils # Seg Neutrophils # Man Lymphocytes # (Manual) Monocytes # (Manual) Eosinophils # (Manual) Basophils # (Manual) PT INR Fibrinogen dRVVT Confirm Interp Factor V Activity POC ABG pH POC ABG pCO2 POC ABG pO2 ABG pO2 ABG HCO3 ABG Base Excess ABG Hemoglobin Oxyhemoglobin Sodium Potassium Chloride 97.9 L Carbon Dioxide BUN 75 H Creatinine 1.6 H Glucose 122 H POC Glucose 149 H 163 H Lactic Acid Calcium Phosphorus 5.20 H Magnesium Direct Bilirubin AST ALT Alkaline Phosphatase Lactate Dehydrogenase Troponin T C-Reactive Protein Total Protein Albumin Prealbumin Triglycerides Cholesterol LDL Cholesterol Direct HDL Cholesterol Urine pH Urine WBC (Auto) Urine Creatinine Urine Total Protein Fluid Total Protein Vancomycin Trough Rheumatoid Factor Complement C4 Miscellaneous Test Crossmatch 12/15/16 12/15/16 12/15/16 05:50 11:24 17:01 WBC RBC Hgb Hct MCV MCH MCHC RDW Plt Count Lymph % (Auto) [place] % (Auto) Lymph # [place] # Baso # Seg Neutrophils % Seg Neuts % (Manual) Lymphocytes % (Manual) Monocytes % (Manual) Eosinophils % (Manual) Basophils % (Manual) Nucleated RBC % Seg Neutrophils # Seg Neutrophils # Man Lymphocytes # (Manual) Monocytes # (Manual) Eosinophils # (Manual) Basophils # (Manual) PT INR Fibrinogen dRVVT Confirm Interp Factor V Activity POC ABG pH POC ABG pCO2 POC ABG pO2 ABG pO2 ABG HCO3 ABG Base Excess ABG Hemoglobin Oxyhemoglobin Sodium Potassium Chloride Carbon Dioxide BUN Creatinine Glucose POC Glucose 150 H 146 H 167 H Lactic Acid Calcium Phosphorus Magnesium Direct Bilirubin AST ALT Alkaline Phosphatase Lactate Dehydrogenase Troponin T C-Reactive Protein Total Protein Albumin Prealbumin Triglycerides Cholesterol LDL Cholesterol Direct HDL Cholesterol Urine pH Urine WBC (Auto) Urine Creatinine Urine Total Protein Fluid Total Protein Vancomycin Trough Rheumatoid Factor Complement C4 Miscellaneous Test Crossmatch 12/15/16 12/16/16 12/16/16 23:34 05:25 11:24 WBC RBC Hgb Hct MCV MCH MCHC RDW Plt Count Lymph % (Auto) [place] % (Auto) Lymph # [place] # Baso # Seg Neutrophils % Seg Neuts % (Manual) Lymphocytes % (Manual) Monocytes % (Manual) Eosinophils % (Manual) Basophils % (Manual) Nucleated RBC % Seg Neutrophils # Seg Neutrophils # Man Lymphocytes # (Manual) Monocytes # (Manual) Eosinophils # (Manual) Basophils # (Manual) PT INR Fibrinogen dRVVT Confirm Interp Factor V Activity POC ABG pH POC ABG pCO2 POC ABG pO2 ABG pO2 ABG HCO3 ABG Base Excess ABG Hemoglobin Oxyhemoglobin Sodium Potassium Chloride Carbon Dioxide BUN Creatinine Glucose POC Glucose 127 H 139 H 165 H Lactic Acid Calcium Phosphorus Magnesium Direct Bilirubin AST ALT Alkaline Phosphatase Lactate Dehydrogenase Troponin T C-Reactive Protein Total Protein Albumin Prealbumin Triglycerides Cholesterol LDL Cholesterol Direct HDL Cholesterol Urine pH Urine WBC (Auto) Urine Creatinine Urine Total Protein Fluid Total Protein Vancomycin Trough Rheumatoid Factor Complement C4 Miscellaneous Test Crossmatch 12/16/16 12/16/16 12/16/16 15:30 16:25 17:31 WBC 17.8 H RBC 2.38 L Hgb 6.4 L Hct 20.3 L MCV MCH 27 L MCHC RDW 17.4 H Plt Count Lymph % (Auto) [place] % (Auto) Lymph # [place] # Baso # Seg Neutrophils % Seg Neuts % (Manual) Lymphocytes % (Manual) Monocytes % (Manual) 10.0 H Eosinophils % (Manual) Basophils % (Manual) Nucleated RBC % Seg Neutrophils # Seg Neutrophils # Man 8.5 H Lymphocytes # (Manual) Monocytes # (Manual) 1.8 H Eosinophils # (Manual) Basophils # (Manual) PT INR Fibrinogen dRVVT Confirm Interp Factor V Activity POC ABG pH POC ABG pCO2 POC ABG pO2 ABG pO2 ABG HCO3 ABG Base Excess ABG Hemoglobin Oxyhemoglobin Sodium Potassium Chloride Carbon Dioxide BUN Creatinine Glucose POC Glucose 176 H Lactic Acid Calcium Phosphorus Magnesium Direct Bilirubin AST ALT Alkaline Phosphatase Lactate Dehydrogenase Troponin T C-Reactive Protein Total Protein Albumin Prealbumin Triglycerides Cholesterol LDL Cholesterol Direct HDL Cholesterol Urine pH Urine WBC (Auto) Urine Creatinine Urine Total Protein Fluid Total Protein Vancomycin Trough Rheumatoid Factor Complement C4 Miscellaneous Test Crossmatch See Detail 12/17/16 12/17/16 12/17/16 00:14 04:00 05:00 WBC 20.0 H RBC 2.99 L Hgb 8.5 L Hct 25.7 L MCV MCH MCHC RDW 17.2 H Plt Count Lymph % (Auto) [place] % (Auto) Lymph # [place] # Baso # Seg Neutrophils % Seg Neuts % (Manual) Lymphocytes % (Manual) Monocytes % (Manual) Eosinophils % (Manual) Basophils % (Manual) Nucleated RBC % Seg Neutrophils # Seg Neutrophils # Man Lymphocytes # (Manual) Monocytes # (Manual) Eosinophils # (Manual) Basophils # (Manual) PT INR Fibrinogen dRVVT Confirm Interp Factor V Activity POC ABG pH POC ABG pCO2 POC ABG pO2 ABG pO2 ABG HCO3 ABG Base Excess ABG Hemoglobin Oxyhemoglobin Sodium Potassium Chloride 97.7 L Carbon Dioxide BUN 73 H Creatinine 1.7 H Glucose 136 H POC Glucose 148 H Lactic Acid Calcium Phosphorus 2.20 L Magnesium 2.70 H Direct Bilirubin AST ALT Alkaline Phosphatase Lactate Dehydrogenase Troponin T C-Reactive Protein Total Protein Albumin Prealbumin Triglycerides Cholesterol LDL Cholesterol Direct HDL Cholesterol Urine pH Urine WBC (Auto) Urine Creatinine Urine Total Protein Fluid Total Protein Vancomycin Trough Rheumatoid Factor Complement C4 Miscellaneous Test Crossmatch 12/17/16 12/17/16 12/17/16 05:39 12:50 16:32 WBC RBC Hgb Hct MCV MCH MCHC RDW Plt Count Lymph % (Auto) [place] % (Auto) Lymph # [place] # Baso # Seg Neutrophils % Seg Neuts % (Manual) Lymphocytes % (Manual) Monocytes % (Manual) Eosinophils % (Manual) Basophils % (Manual) Nucleated RBC % Seg Neutrophils # Seg Neutrophils # Man Lymphocytes # (Manual) Monocytes # (Manual) Eosinophils # (Manual) Basophils # (Manual) PT INR Fibrinogen dRVVT Confirm Interp Factor V Activity POC ABG pH POC ABG pCO2 POC ABG pO2 ABG pO2 ABG HCO3 ABG Base Excess ABG Hemoglobin Oxyhemoglobin Sodium Potassium Chloride Carbon Dioxide BUN Creatinine Glucose POC Glucose 162 H 146 H 169 H Lactic Acid Calcium Phosphorus Magnesium Direct Bilirubin AST ALT Alkaline Phosphatase Lactate Dehydrogenase Troponin T C-Reactive Protein Total Protein Albumin Prealbumin Triglycerides Cholesterol LDL Cholesterol Direct HDL Cholesterol Urine pH Urine WBC (Auto) Urine Creatinine Urine Total Protein Fluid Total Protein Vancomycin Trough Rheumatoid Factor Complement C4 Miscellaneous Test Crossmatch 12/17/16 12/18/16 12/18/16 23:57 05:00 05:32 WBC RBC Hgb Hct MCV MCH MCHC RDW Plt Count Lymph % (Auto) [place] % (Auto) Lymph # [place] # Baso # Seg Neutrophils % Seg Neuts % (Manual) Lymphocytes % (Manual) Monocytes % (Manual) Eosinophils % (Manual) Basophils % (Manual) Nucleated RBC % Seg Neutrophils # Seg Neutrophils # Man Lymphocytes # (Manual) Monocytes # (Manual) Eosinophils # (Manual) Basophils # (Manual) PT INR Fibrinogen dRVVT Confirm Interp Factor V Activity POC ABG pH POC ABG pCO2 POC ABG pO2 ABG pO2 ABG HCO3 ABG Base Excess ABG Hemoglobin Oxyhemoglobin Sodium Potassium Chloride 97.0 L Carbon Dioxide BUN 63 H Creatinine 1.4 H Glucose 174 H POC Glucose 145 H 201 H Lactic Acid Calcium Phosphorus 1.70 L D Magnesium Direct Bilirubin AST ALT Alkaline Phosphatase 257 H Lactate Dehydrogenase Troponin T C-Reactive Protein Total Protein 5.9 L Albumin 1.8 L Prealbumin Triglycerides Cholesterol LDL Cholesterol Direct HDL Cholesterol Urine pH Urine WBC (Auto) Urine Creatinine Urine Total Protein Fluid Total Protein Vancomycin Trough Rheumatoid Factor Complement C4 Miscellaneous Test Crossmatch 12/18/16 12/18/16 12/18/16 11:43 16:52 23:52 WBC RBC Hgb Hct MCV MCH MCHC RDW Plt Count Lymph % (Auto) [place] % (Auto) Lymph # [place] # Baso # Seg Neutrophils % Seg Neuts % (Manual) Lymphocytes % (Manual) Monocytes % (Manual) Eosinophils % (Manual) Basophils % (Manual) Nucleated RBC % Seg Neutrophils # Seg Neutrophils # Man Lymphocytes # (Manual) Monocytes # (Manual) Eosinophils # (Manual) Basophils # (Manual) PT INR Fibrinogen dRVVT Confirm Interp Factor V Activity POC ABG pH POC ABG pCO2 POC ABG pO2 ABG pO2 ABG HCO3 ABG Base Excess ABG Hemoglobin Oxyhemoglobin Sodium Potassium Chloride Carbon Dioxide BUN Creatinine Glucose POC Glucose 177 H 110 H 162 H Lactic Acid Calcium Phosphorus Magnesium Direct Bilirubin AST ALT Alkaline Phosphatase Lactate Dehydrogenase Troponin T C-Reactive Protein Total Protein Albumin Prealbumin Triglycerides Cholesterol LDL Cholesterol Direct HDL Cholesterol Urine pH Urine WBC (Auto) Urine Creatinine Urine Total Protein Fluid Total Protein Vancomycin Trough Rheumatoid Factor Complement C4 Miscellaneous Test Crossmatch 12/19/16 12/19/16 12/19/16 05:02 05:24 09:30 WBC 20.1 H RBC 2.73 L Hgb 7.6 L Hct 23.6 L MCV MCH MCHC RDW 17.6 H Plt Count Lymph % (Auto) [place] % (Auto) Lymph # [place] # Baso # Seg Neutrophils % Seg Neuts % (Manual) Lymphocytes % (Manual) 13.0 L Monocytes % (Manual) Eosinophils % (Manual) Basophils % (Manual) Nucleated RBC % 1.0 H Seg Neutrophils # Seg Neutrophils # Man 12.9 H Lymphocytes # (Manual) Monocytes # (Manual) 1.4 H Eosinophils # (Manual) Basophils # (Manual) 0.2 H PT INR Fibrinogen dRVVT Confirm Interp Factor V Activity POC ABG pH POC ABG pCO2 POC ABG pO2 ABG pO2 ABG HCO3 ABG Base Excess ABG Hemoglobin Oxyhemoglobin Sodium Potassium Chloride 97.8 L Carbon Dioxide BUN 84 H Creatinine 1.6 H Glucose 133 H POC Glucose 134 H Lactic Acid Calcium Phosphorus Magnesium Direct Bilirubin AST ALT Alkaline Phosphatase Lactate Dehydrogenase Troponin T C-Reactive Protein Total Protein Albumin Prealbumin Triglycerides Cholesterol LDL Cholesterol Direct HDL Cholesterol Urine pH Urine WBC (Auto) Urine Creatinine Urine Total Protein Fluid Total Protein Vancomycin Trough Rheumatoid Factor Complement C4 Miscellaneous Test Crossmatch 12/19/16 12/19/1612/19/17 09:36 11:12 18:29 WBC RBC Hgb Hct MCV MCH MCHC RDW Plt Count Lymph % (Auto) [place] % (Auto) Lymph # [place] # Baso # Seg Neutrophils % Seg Neuts % (Manual) Lymphocytes % (Manual) Monocytes % (Manual) Eosinophils % (Manual) Basophils % (Manual) Nucleated RBC % Seg Neutrophils # Seg Neutrophils # Man Lymphocytes # (Manual) Monocytes # (Manual) Eosinophils # (Manual) Basophils # (Manual) PT INR Fibrinogen dRVVT Confirm Interp Factor V Activity POC ABG pH 7.503 H POC ABG pCO2 30.1 L POC ABG pO2 ABG pO2 ABG HCO3 ABG Base Excess ABG Hemoglobin Oxyhemoglobin Sodium Potassium Chloride Carbon Dioxide BUN Creatinine Glucose POC Glucose 138 H 156 H Lactic Acid Calcium Phosphorus Magnesium Direct Bilirubin AST ALT Alkaline Phosphatase Lactate Dehydrogenase Troponin T C-Reactive Protein Total Protein Albumin Prealbumin Triglycerides Cholesterol LDL Cholesterol Direct HDL Cholesterol Urine pH Urine WBC (Auto) Urine Creatinine Urine Total Protein Fluid Total Protein Vancomycin Trough Rheumatoid Factor Complement C4 Miscellaneous Test Crossmatch 12/20/16 12/20/16 12/20/16 00:03 06:17 07:07 WBC RBC Hgb Hct MCV MCH MCHC RDW Plt Count Lymph % (Auto) [place] % (Auto) Lymph # [place] # Baso # Seg Neutrophils % Seg Neuts % (Manual) Lymphocytes % (Manual) Monocytes % (Manual) Eosinophils % (Manual) Basophils % (Manual) Nucleated RBC % Seg Neutrophils # Seg Neutrophils # Man Lymphocytes # (Manual) Monocytes # (Manual) Eosinophils # (Manual) Basophils # (Manual) PT INR Fibrinogen dRVVT Confirm Interp Factor V Activity POC ABG pH POC ABG pCO2 POC ABG pO2 ABG pO2 ABG HCO3 ABG Base Excess ABG Hemoglobin Oxyhemoglobin Sodium Potassium Chloride 97.1 L Carbon Dioxide 20 L BUN 97 H Creatinine 1.8 H Glucose 153 H POC Glucose 152 H 175 H Lactic Acid Calcium Phosphorus Magnesium Direct Bilirubin AST ALT Alkaline Phosphatase Lactate Dehydrogenase Troponin T C-Reactive Protein Total Protein Albumin Prealbumin Triglycerides Cholesterol LDL Cholesterol Direct HDL Cholesterol Urine pH Urine WBC (Auto) Urine Creatinine Urine Total Protein Fluid Total Protein Vancomycin Trough Rheumatoid Factor Complement C4 Miscellaneous Test Crossmatch 12/20/16 12/20/16 12/20/16 12:00 17:42 23:53 WBC RBC Hgb Hct MCV MCH MCHC RDW Plt Count Lymph % (Auto) [place] % (Auto) Lymph # [place] # Baso # Seg Neutrophils % Seg Neuts % (Manual) Lymphocytes % (Manual) Monocytes % (Manual) Eosinophils % (Manual) Basophils % (Manual) Nucleated RBC % Seg Neutrophils # Seg Neutrophils # Man Lymphocytes # (Manual) Monocytes # (Manual) Eosinophils # (Manual) Basophils # (Manual) PT INR Fibrinogen dRVVT Confirm Interp Factor V Activity POC ABG pH POC ABG pCO2 POC ABG pO2 ABG pO2 ABG HCO3 ABG Base Excess ABG Hemoglobin Oxyhemoglobin Sodium Potassium Chloride Carbon Dioxide BUN Creatinine Glucose POC Glucose 141 H 156 H 132 H Lactic Acid Calcium Phosphorus Magnesium Direct Bilirubin AST ALT Alkaline Phosphatase Lactate Dehydrogenase Troponin T C-Reactive Protein Total Protein Albumin Prealbumin Triglycerides Cholesterol LDL Cholesterol Direct HDL Cholesterol Urine pH Urine WBC (Auto) Urine Creatinine Urine Total Protein Fluid Total Protein Vancomycin Trough Rheumatoid Factor Complement C4 Miscellaneous Test Crossmatch 12/21/16 12/21/16 12/21/16 05:49 08:50 12:19 WBC RBC Hgb Hct MCV MCH MCHC RDW Plt Count Lymph % (Auto) [place] % (Auto) Lymph # [place] # Baso # Seg Neutrophils % Seg Neuts % (Manual) Lymphocytes % (Manual) Monocytes % (Manual) Eosinophils % (Manual) Basophils % (Manual) Nucleated RBC % Seg Neutrophils # Seg Neutrophils # Man Lymphocytes # (Manual) Monocytes # (Manual) Eosinophils # (Manual) Basophils # (Manual) PT INR Fibrinogen dRVVT Confirm Interp Factor V Activity POC ABG pH POC ABG pCO2 POC ABG pO2 ABG pO2 ABG HCO3 ABG Base Excess ABG Hemoglobin Oxyhemoglobin Sodium Potassium 5.2 H D Chloride Carbon Dioxide BUN 63 H Creatinine Glucose 122 H POC Glucose 132 H 136 H Lactic Acid Calcium 8.3 L Phosphorus Magnesium Direct Bilirubin AST ALT Alkaline Phosphatase Lactate Dehydrogenase Troponin T C-Reactive Protein Total Protein Albumin Prealbumin Triglycerides Cholesterol LDL Cholesterol Direct HDL Cholesterol Urine pH Urine WBC (Auto) Urine Creatinine Urine Total Protein Fluid Total Protein Vancomycin Trough Rheumatoid Factor Complement C4 Miscellaneous Test Crossmatch 12/21/16 12/21/16 12/22/16 17:22 23:58 05:49 WBC RBC Hgb Hct MCV MCH MCHC RDW Plt Count Lymph % (Auto) [place] % (Auto) Lymph # [place] # Baso # Seg Neutrophils % Seg Neuts % (Manual) Lymphocytes % (Manual) Monocytes % (Manual) Eosinophils % (Manual) Basophils % (Manual) Nucleated RBC % Seg Neutrophils # Seg Neutrophils # Man Lymphocytes # (Manual) Monocytes # (Manual) Eosinophils # (Manual) Basophils # (Manual) PT INR Fibrinogen dRVVT Confirm Interp Factor V Activity POC ABG pH POC ABG pCO2 POC ABG pO2 ABG pO2 ABG HCO3 ABG Base Excess ABG Hemoglobin Oxyhemoglobin Sodium Potassium Chloride Carbon Dioxide BUN Creatinine Glucose POC Glucose 135 H 149 H 140 H Lactic Acid Calcium Phosphorus Magnesium Direct Bilirubin AST ALT Alkaline Phosphatase Lactate Dehydrogenase Troponin T C-Reactive Protein Total Protein Albumin Prealbumin Triglycerides Cholesterol LDL Cholesterol Direct HDL Cholesterol Urine pH Urine WBC (Auto) Urine Creatinine Urine Total Protein Fluid Total Protein Vancomycin Trough Rheumatoid Factor Complement C4 Miscellaneous Test Crossmatch 12/22/16 12/22/16 12/22/16 06:10 11:17 17:31 WBC RBC Hgb Hct MCV MCH MCHC RDW Plt Count Lymph % (Auto) [place] % (Auto) Lymph # [place] # Baso # Seg Neutrophils % Seg Neuts % (Manual) Lymphocytes % (Manual) Monocytes % (Manual) Eosinophils % (Manual) Basophils % (Manual) Nucleated RBC % Seg Neutrophils # Seg Neutrophils # Man Lymphocytes # (Manual) Monocytes # (Manual) Eosinophils # (Manual) Basophils # (Manual) PT INR Fibrinogen dRVVT Confirm Interp Factor V Activity POC ABG pH POC ABG pCO2 POC ABG pO2 ABG pO2 ABG HCO3 ABG Base Excess ABG Hemoglobin Oxyhemoglobin Sodium Potassium Chloride Carbon Dioxide BUN 76 H Creatinine 1.5 H Glucose 241 H POC Glucose 193 H 148 H Lactic Acid Calcium Phosphorus Magnesium Direct Bilirubin AST ALT Alkaline Phosphatase Lactate Dehydrogenase Troponin T C-Reactive Protein Total Protein Albumin Prealbumin Triglycerides Cholesterol LDL Cholesterol Direct HDL Cholesterol Urine pH Urine WBC (Auto) Urine Creatinine Urine Total Protein Fluid Total Protein Vancomycin Trough Rheumatoid Factor Complement C4 Miscellaneous Test Crossmatch 12/22/16 12/23/16 12/23/16 23:58 05:00 05:26 WBC RBC Hgb Hct MCV MCH MCHC RDW Plt Count Lymph % (Auto) [place] % (Auto) Lymph # [place] # Baso # Seg Neutrophils % Seg Neuts % (Manual) Lymphocytes % (Manual) Monocytes % (Manual) Eosinophils % (Manual) Basophils % (Manual) Nucleated RBC % Seg Neutrophils # Seg Neutrophils # Man Lymphocytes # (Manual) Monocytes # (Manual) Eosinophils # (Manual) Basophils # (Manual) PT INR Fibrinogen dRVVT Confirm Interp Factor V Activity POC ABG pH POC ABG pCO2 POC ABG pO2 ABG pO2 ABG HCO3 ABG Base Excess ABG Hemoglobin Oxyhemoglobin Sodium Potassium Chloride Carbon Dioxide BUN 49 H Creatinine Glucose 143 H POC Glucose 165 H 154 H Lactic Acid Calcium 8.2 L Phosphorus Magnesium 1.60 L Direct Bilirubin AST ALT Alkaline Phosphatase Lactate Dehydrogenase Troponin T C-Reactive Protein Total Protein Albumin Prealbumin Triglycerides Cholesterol LDL Cholesterol Direct HDL Cholesterol Urine pH Urine WBC (Auto) Urine Creatinine Urine Total Protein Fluid Total Protein Vancomycin Trough Rheumatoid Factor Complement C4 Miscellaneous Test Crossmatch 12/23/16 12/23/16 12/24/16 12:35 17:01 00:01 WBC RBC Hgb Hct MCV MCH MCHC RDW Plt Count Lymph % (Auto) [place] % (Auto) Lymph # [place] # Baso # Seg Neutrophils % Seg Neuts % (Manual) Lymphocytes % (Manual) Monocytes % (Manual) Eosinophils % (Manual) Basophils % (Manual) Nucleated RBC % Seg Neutrophils # Seg Neutrophils # Man Lymphocytes # (Manual) Monocytes # (Manual) Eosinophils # (Manual) Basophils # (Manual) PT INR Fibrinogen dRVVT Confirm Interp Factor V Activity POC ABG pH POC ABG pCO2 POC ABG pO2 ABG pO2 ABG HCO3 ABG Base Excess ABG Hemoglobin Oxyhemoglobin Sodium Potassium Chloride Carbon Dioxide BUN Creatinine Glucose POC Glucose 164 H 149 H 135 H Lactic Acid Calcium Phosphorus Magnesium Direct Bilirubin AST ALT Alkaline Phosphatase Lactate Dehydrogenase Troponin T C-Reactive Protein Total Protein Albumin Prealbumin Triglycerides Cholesterol LDL Cholesterol Direct HDL Cholesterol Urine pH Urine WBC (Auto) Urine Creatinine Urine Total Protein Fluid Total Protein Vancomycin Trough Rheumatoid Factor Complement C4 Miscellaneous Test Crossmatch 12/24/16 12/24/16 12/24/16 05:41 07:01 11:38 WBC RBC Hgb Hct MCV MCH MCHC RDW Plt Count Lymph % (Auto) [place] % (Auto) Lymph # [place] # Baso # Seg Neutrophils % Seg Neuts % (Manual) Lymphocytes % (Manual) Monocytes % (Manual) Eosinophils % (Manual) Basophils % (Manual) Nucleated RBC % Seg Neutrophils # Seg Neutrophils # Man Lymphocytes # (Manual) Monocytes # (Manual) Eosinophils # (Manual) Basophils # (Manual) PT INR Fibrinogen dRVVT Confirm Interp Factor V Activity POC ABG pH POC ABG pCO2 POC ABG pO2 ABG pO2 ABG HCO3 ABG Base Excess ABG Hemoglobin Oxyhemoglobin Sodium Potassium Chloride Carbon Dioxide BUN 72 H Creatinine 1.3 H Glucose 130 H POC Glucose 132 H 156 H Lactic Acid Calcium 8.2 L Phosphorus Magnesium Direct Bilirubin AST ALT Alkaline Phosphatase Lactate Dehydrogenase Troponin T C-Reactive Protein Total Protein Albumin Prealbumin Triglycerides Cholesterol LDL Cholesterol Direct HDL Cholesterol Urine pH Urine WBC (Auto) Urine Creatinine Urine Total Protein Fluid Total Protein Vancomycin Trough Rheumatoid Factor Complement C4 Miscellaneous Test Crossmatch 12/24/16 12/25/16 12/25/16 17:53 00:23 05:45 WBC RBC Hgb Hct MCV MCH MCHC RDW Plt Count Lymph % (Auto) [place] % (Auto) Lymph # [place] # Baso # Seg Neutrophils % Seg Neuts % (Manual) Lymphocytes % (Manual) Monocytes % (Manual) Eosinophils % (Manual) Basophils % (Manual) Nucleated RBC % Seg Neutrophils # Seg Neutrophils # Man Lymphocytes # (Manual) Monocytes # (Manual) Eosinophils # (Manual) Basophils # (Manual) PT INR Fibrinogen dRVVT Confirm Interp Factor V Activity POC ABG pH POC ABG pCO2 POC ABG pO2 ABG pO2 ABG HCO3 ABG Base Excess ABG Hemoglobin Oxyhemoglobin Sodium 146 H Potassium Chloride Carbon Dioxide BUN 51 H Creatinine Glucose 109 H POC Glucose 169 H 117 H Lactic Acid Calcium Phosphorus Magnesium Direct Bilirubin AST ALT Alkaline Phosphatase Lactate Dehydrogenase Troponin T C-Reactive Protein Total Protein Albumin Prealbumin Triglycerides Cholesterol LDL Cholesterol Direct HDL Cholesterol Urine pH Urine WBC (Auto) Urine Creatinine Urine Total Protein Fluid Total Protein Vancomycin Trough Rheumatoid Factor Complement C4 Miscellaneous Test Crossmatch 12/25/16 12/25/16 12/25/16 06:43 11:29 17:14 WBC RBC Hgb Hct MCV MCH MCHC RDW Plt Count Lymph % (Auto) [place] % (Auto) Lymph # [place] # Baso # Seg Neutrophils % Seg Neuts % (Manual) Lymphocytes % (Manual) Monocytes % (Manual) Eosinophils % (Manual) Basophils % (Manual) Nucleated RBC % Seg Neutrophils # Seg Neutrophils # Man Lymphocytes # (Manual) Monocytes # (Manual) Eosinophils # (Manual) Basophils # (Manual) PT INR Fibrinogen dRVVT Confirm Interp Factor V Activity POC ABG pH POC ABG pCO2 POC ABG pO2 ABG pO2 ABG HCO3 ABG Base Excess ABG Hemoglobin Oxyhemoglobin Sodium Potassium Chloride Carbon Dioxide BUN Creatinine Glucose POC Glucose 117 H 128 H 120 H Lactic Acid Calcium Phosphorus Magnesium Direct Bilirubin AST ALT Alkaline Phosphatase Lactate Dehydrogenase Troponin T C-Reactive Protein Total Protein Albumin Prealbumin Triglycerides Cholesterol LDL Cholesterol Direct HDL Cholesterol Urine pH Urine WBC (Auto) Urine Creatinine Urine Total Protein Fluid Total Protein Vancomycin Trough Rheumatoid Factor Complement C4 Miscellaneous Test Crossmatch 12/25/16 12/26/16 12/26/16 23:54 05:40 05:50 WBC 16.2 H RBC 2.32 L Hgb 6.2 L Hct 20.1 L MCV MCH 27 L MCHC RDW 18.6 H Plt Count Lymph % (Auto) [place] % (Auto) Lymph # [place] # Baso # Seg Neutrophils % Seg Neuts % (Manual) Lymphocytes % (Manual) Monocytes % (Manual) Eosinophils % (Manual) Basophils % (Manual) Nucleated RBC % Seg Neutrophils # Seg Neutrophils # Man Lymphocytes # (Manual) Monocytes # (Manual) Eosinophils # (Manual) Basophils # (Manual) PT INR Fibrinogen dRVVT Confirm Interp Factor V Activity POC ABG pH POC ABG pCO2 POC ABG pO2 ABG pO2 ABG HCO3 ABG Base Excess ABG Hemoglobin Oxyhemoglobin Sodium Potassium Chloride Carbon Dioxide BUN Creatinine Glucose POC Glucose 126 H 132 H Lactic Acid Calcium Phosphorus Magnesium Direct Bilirubin AST ALT Alkaline Phosphatase Lactate Dehydrogenase Troponin T C-Reactive Protein Total Protein Albumin Prealbumin Triglycerides Cholesterol LDL Cholesterol Direct HDL Cholesterol Urine pH Urine WBC (Auto) Urine Creatinine Urine Total Protein Fluid Total Protein Vancomycin Trough Rheumatoid Factor Complement C4 Miscellaneous Test Crossmatch 12/26/16 12/26/16 12/26/16 05:50 12:17 12:33 WBC RBC Hgb Hct MCV MCH MCHC RDW Plt Count Lymph % (Auto) [place] % (Auto) Lymph # [place] # Baso # Seg Neutrophils % Seg Neuts % (Manual) Lymphocytes % (Manual) Monocytes % (Manual) Eosinophils % (Manual) Basophils % (Manual) Nucleated RBC % Seg Neutrophils # Seg Neutrophils # Man Lymphocytes # (Manual) Monocytes # (Manual) Eosinophils # (Manual) Basophils # (Manual) PT INR Fibrinogen dRVVT Confirm Interp Factor V Activity POC ABG pH POC ABG pCO2 POC ABG pO2 ABG pO2 ABG HCO3 ABG Base Excess ABG Hemoglobin Oxyhemoglobin Sodium Potassium Chloride Carbon Dioxide BUN 73 H Creatinine 1.3 H Glucose 113 H POC Glucose 117 H Lactic Acid Calcium Phosphorus Magnesium Direct Bilirubin AST ALT Alkaline Phosphatase Lactate Dehydrogenase Troponin T C-Reactive Protein Total Protein Albumin Prealbumin Triglycerides Cholesterol LDL Cholesterol Direct HDL Cholesterol Urine pH Urine WBC (Auto) Urine Creatinine Urine Total Protein Fluid Total Protein Vancomycin Trough Rheumatoid Factor Complement C4 Miscellaneous Test Crossmatch See Detail 12/26/16 12/26/16 12/27/16 20:00 23:21 05:00 WBC RBC Hgb 8.4 L Hct 26.3 L D MCV MCH MCHC RDW Plt Count Lymph % (Auto) [place] % (Auto) Lymph # [place] # Baso # Seg Neutrophils % Seg Neuts % (Manual) Lymphocytes % (Manual) Monocytes % (Manual) Eosinophils % (Manual) Basophils % (Manual) Nucleated RBC % Seg Neutrophils # Seg Neutrophils # Man Lymphocytes # (Manual) Monocytes # (Manual) Eosinophils # (Manual) Basophils # (Manual) PT INR Fibrinogen dRVVT Confirm Interp Factor V Activity POC ABG pH POC ABG pCO2 POC ABG pO2 ABG pO2 ABG HCO3 ABG Base Excess ABG Hemoglobin Oxyhemoglobin Sodium Potassium Chloride Carbon Dioxide BUN 85 H Creatinine 1.6 H Glucose 118 H POC Glucose 124 H Lactic Acid Calcium Phosphorus 4.80 H Magnesium Direct Bilirubin AST ALT Alkaline Phosphatase Lactate Dehydrogenase Troponin T C-Reactive Protein Total Protein Albumin Prealbumin Triglycerides Cholesterol LDL Cholesterol Direct HDL Cholesterol Urine pH Urine WBC (Auto) Urine Creatinine Urine Total Protein Fluid Total Protein Vancomycin Trough Rheumatoid Factor Complement C4 Miscellaneous Test Crossmatch 12/27/16 12/27/16 12/27/16 05:00 05:35 12:24 WBC RBC Hgb 7.6 L Hct 22.8 L MCV MCH MCHC RDW Plt Count Lymph % (Auto) [place] % (Auto) Lymph # [place] # Baso # Seg Neutrophils % Seg Neuts % (Manual) Lymphocytes % (Manual) Monocytes % (Manual) Eosinophils % (Manual) Basophils % (Manual) Nucleated RBC % Seg Neutrophils # Seg Neutrophils # Man Lymphocytes # (Manual) Monocytes # (Manual) Eosinophils # (Manual) Basophils # (Manual) PT INR Fibrinogen dRVVT Confirm Interp Factor V Activity POC ABG pH POC ABG pCO2 POC ABG pO2 ABG pO2 ABG HCO3 ABG Base Excess ABG Hemoglobin Oxyhemoglobin Sodium Potassium Chloride Carbon Dioxide BUN Creatinine Glucose POC Glucose 115 H 131 H Lactic Acid Calcium Phosphorus Magnesium Direct Bilirubin AST ALT Alkaline Phosphatase Lactate Dehydrogenase Troponin T C-Reactive Protein Total Protein Albumin Prealbumin Triglycerides Cholesterol LDL Cholesterol Direct HDL Cholesterol Urine pH Urine WBC (Auto) Urine Creatinine Urine Total Protein Fluid Total Protein Vancomycin Trough Rheumatoid Factor Complement C4 Miscellaneous Test Crossmatch 12/27/16 12/28/16 12/28/16 17:16 00:18 04:00 WBC RBC Hgb Hct MCV MCH MCHC RDW Plt Count Lymph % (Auto) [place] % (Auto) Lymph # [place] # Baso # Seg Neutrophils % Seg Neuts % (Manual) Lymphocytes % (Manual) Monocytes % (Manual) Eosinophils % (Manual) Basophils % (Manual) Nucleated RBC % Seg Neutrophils # Seg Neutrophils # Man Lymphocytes # (Manual) Monocytes # (Manual) Eosinophils # (Manual) Basophils # (Manual) PT INR Fibrinogen dRVVT Confirm Interp Factor V Activity POC ABG pH POC ABG pCO2 POC ABG pO2 ABG pO2 ABG HCO3 ABG Base Excess ABG Hemoglobin Oxyhemoglobin Sodium Potassium 3.5 L Chloride Carbon Dioxide BUN 57 H Creatinine Glucose 118 H POC Glucose 136 H 120 H Lactic Acid Calcium 8.3 L Phosphorus Magnesium Direct Bilirubin AST ALT Alkaline Phosphatase Lactate Dehydrogenase Troponin T C-Reactive Protein Total Protein Albumin Prealbumin Triglycerides Cholesterol LDL Cholesterol Direct HDL Cholesterol Urine pH Urine WBC (Auto) Urine Creatinine Urine Total Protein Fluid Total Protein Vancomycin Trough Rheumatoid Factor Complement C4 Miscellaneous Test Crossmatch 12/28/16 12/28/16 12/28/16 04:00 05:11 08:30 WBC 17.0 H RBC 2.58 L Hgb 7.1 L Hct 22.0 L MCV MCH MCHC RDW 17.6 H Plt Count Lymph % (Auto) 12.2 L [place] % (Auto) Lymph # [place] # 1.1 H Baso # Seg Neutrophils % 80.5 H Seg Neuts % (Manual) Lymphocytes % (Manual) Monocytes % (Manual) Eosinophils % (Manual) Basophils % (Manual) Nucleated RBC % Seg Neutrophils # 13.7 H Seg Neutrophils # Man Lymphocytes # (Manual) Monocytes # (Manual) Eosinophils # (Manual) Basophils # (Manual) PT 16.1 H INR 1.23 H Fibrinogen dRVVT Confirm Interp Factor V Activity POC ABG pH POC ABG pCO2 POC ABG pO2 ABG pO2 ABG HCO3 ABG Base Excess ABG Hemoglobin Oxyhemoglobin Sodium Potassium Chloride Carbon Dioxide BUN Creatinine Glucose POC Glucose 122 H Lactic Acid Calcium Phosphorus Magnesium Direct Bilirubin AST ALT Alkaline Phosphatase Lactate Dehydrogenase Troponin T C-Reactive Protein Total Protein Albumin Prealbumin Triglycerides Cholesterol LDL Cholesterol Direct HDL Cholesterol Urine pH Urine WBC (Auto) Urine Creatinine Urine Total Protein Fluid Total Protein Vancomycin Trough Rheumatoid Factor Complement C4 Miscellaneous Test Crossmatch 12/28/16 12/28/16 12/28/16 12:27 16:32 23:46 WBC RBC Hgb Hct MCV MCH MCHC RDW Plt Count Lymph % (Auto) [place] % (Auto) Lymph # [place] # Baso # Seg Neutrophils % Seg Neuts % (Manual) Lymphocytes % (Manual) Monocytes % (Manual) Eosinophils % (Manual) Basophils % (Manual) Nucleated RBC % Seg Neutrophils # Seg Neutrophils # Man Lymphocytes # (Manual) Monocytes # (Manual) Eosinophils # (Manual) Basophils # (Manual) PT INR Fibrinogen dRVVT Confirm Interp Factor V Activity POC ABG pH POC ABG pCO2 POC ABG pO2 ABG pO2 ABG HCO3 ABG Base Excess ABG Hemoglobin Oxyhemoglobin Sodium Potassium Chloride Carbon Dioxide BUN Creatinine Glucose POC Glucose 127 H 117 H 108 H Lactic Acid Calcium Phosphorus Magnesium Direct Bilirubin AST ALT Alkaline Phosphatase Lactate Dehydrogenase Troponin T C-Reactive Protein Total Protein Albumin Prealbumin Triglycerides Cholesterol LDL Cholesterol Direct HDL Cholesterol Urine pH Urine WBC (Auto) Urine Creatinine Urine Total Protein Fluid Total Protein Vancomycin Trough Rheumatoid Factor Complement C4 Miscellaneous Test Crossmatch 12/29/16 12/29/16 12/29/16 05:15 05:15 05:32 WBC RBC Hgb Hct MCV MCH MCHC RDW Plt Count Lymph % (Auto) [place] % (Auto) Lymph # [place] # Baso # Seg Neutrophils % Seg Neuts % (Manual) Lymphocytes % (Manual) Monocytes % (Manual) Eosinophils % (Manual) Basophils % (Manual) Nucleated RBC % Seg Neutrophils # Seg Neutrophils # Man Lymphocytes # (Manual) Monocytes # (Manual) Eosinophils # (Manual) Basophils # (Manual) PT INR Fibrinogen dRVVT Confirm Interp Factor V Activity POC ABG pH POC ABG pCO2 POC ABG pO2 ABG pO2 ABG HCO3 ABG Base Excess ABG Hemoglobin Oxyhemoglobin Sodium Potassium Chloride Carbon Dioxide BUN 74 H Creatinine 1.6 H Glucose 111 H POC Glucose 123 H Lactic Acid Calcium Phosphorus Magnesium Direct Bilirubin AST ALT Alkaline Phosphatase Lactate Dehydrogenase Troponin T C-Reactive Protein Total Protein Albumin Prealbumin 0.110 L Triglycerides Cholesterol LDL Cholesterol Direct HDL Cholesterol Urine pH Urine WBC (Auto) Urine Creatinine Urine Total Protein Fluid Total Protein Vancomycin Trough Rheumatoid Factor Complement C4 Miscellaneous Test Crossmatch 12/29/16 12/29/16 12/29/16 11:43 13:45 14:00 WBC 13.8 H RBC 2.26 L Hgb 6.3 L Hct 20.4 L MCV MCH MCHC RDW 18.3 H Plt Count Lymph % (Auto) [place] % (Auto) Lymph # [place] # 0.9 H Baso # Seg Neutrophils % 78.6 H Seg Neuts % (Manual) Lymphocytes % (Manual) Monocytes % (Manual) Eosinophils % (Manual) Basophils % (Manual) Nucleated RBC % Seg Neutrophils # 10.8 H Seg Neutrophils # Man Lymphocytes # (Manual) Monocytes # (Manual) Eosinophils # (Manual) Basophils # (Manual) PT INR Fibrinogen dRVVT Confirm Interp Factor V Activity POC ABG pH POC ABG pCO2 POC ABG pO2 ABG pO2 ABG HCO3 ABG Base Excess ABG Hemoglobin Oxyhemoglobin Sodium Potassium Chloride Carbon Dioxide BUN Creatinine Glucose POC Glucose 133 H Lactic Acid Calcium Phosphorus Magnesium Direct Bilirubin AST ALT Alkaline Phosphatase Lactate Dehydrogenase Troponin T C-Reactive Protein Total Protein Albumin Prealbumin Triglycerides Cholesterol LDL Cholesterol Direct HDL Cholesterol Urine pH Urine WBC (Auto) Urine Creatinine Urine Total Protein Fluid Total Protein Vancomycin Trough Rheumatoid Factor Complement C4 Miscellaneous Test Crossmatch See Detail 12/29/16 12/29/16 12/29/16 17:03 23:15 23:22 WBC RBC Hgb 7.3 L Hct 22.3 L MCV MCH MCHC RDW Plt Count Lymph % (Auto) [place] % (Auto) Lymph # [place] # Baso # Seg Neutrophils % Seg Neuts % (Manual) Lymphocytes % (Manual) Monocytes % (Manual) Eosinophils % (Manual) Basophils % (Manual) Nucleated RBC % Seg Neutrophils # Seg Neutrophils # Man Lymphocytes # (Manual) Monocytes # (Manual) Eosinophils # (Manual) Basophils # (Manual) PT INR Fibrinogen dRVVT Confirm Interp Factor V Activity POC ABG pH POC ABG pCO2 POC ABG pO2 ABG pO2 ABG HCO3 ABG Base Excess ABG Hemoglobin Oxyhemoglobin Sodium Potassium Chloride Carbon Dioxide BUN Creatinine Glucose POC Glucose 139 H 120 H Lactic Acid Calcium Phosphorus Magnesium Direct Bilirubin AST ALT Alkaline Phosphatase Lactate Dehydrogenase Troponin T C-Reactive Protein Total Protein Albumin Prealbumin Triglycerides Cholesterol LDL Cholesterol Direct HDL Cholesterol Urine pH Urine WBC (Auto) Urine Creatinine Urine Total Protein Fluid Total Protein Vancomycin Trough Rheumatoid Factor Complement C4 Miscellaneous Test Crossmatch 12/30/16 12/30/16 12/30/16 04:20 04:20 05:43 WBC 15.6 H RBC 2.81 L Hgb 8.0 L Hct 24.0 L MCV MCH MCHC RDW 16.9 H Plt Count Lymph % (Auto) [place] % (Auto) Lymph # [place] # 1.0 H Baso # Seg Neutrophils % 76.2 H Seg Neuts % (Manual) Lymphocytes % (Manual) Monocytes % (Manual) Eosinophils % (Manual) Basophils % (Manual) Nucleated RBC % Seg Neutrophils # 11.9 H Seg Neutrophils # Man Lymphocytes # (Manual) Monocytes # (Manual) Eosinophils # (Manual) Basophils # (Manual) PT INR Fibrinogen dRVVT Confirm Interp Factor V Activity POC ABG pH POC ABG pCO2 POC ABG pO2 ABG pO2 ABG HCO3 ABG Base Excess ABG Hemoglobin Oxyhemoglobin Sodium Potassium Chloride Carbon Dioxide BUN 87 H Creatinine 1.8 H Glucose 119 H POC Glucose 115 H Lactic Acid Calcium Phosphorus Magnesium Direct Bilirubin AST ALT Alkaline Phosphatase Lactate Dehydrogenase Troponin T C-Reactive Protein Total Protein Albumin Prealbumin Triglycerides Cholesterol LDL Cholesterol Direct HDL Cholesterol Urine pH Urine WBC (Auto) Urine Creatinine Urine Total Protein Fluid Total Protein Vancomycin Trough Rheumatoid Factor Complement C4 Miscellaneous Test Crossmatch 12/30/16 12/30/16 12/31/16 17:27 23:21 04:00 WBC RBC Hgb Hct MCV MCH MCHC RDW Plt Count Lymph % (Auto) [place] % (Auto) Lymph # [place] # Baso # Seg Neutrophils % Seg Neuts % (Manual) Lymphocytes % (Manual) Monocytes % (Manual) Eosinophils % (Manual) Basophils % (Manual) Nucleated RBC % Seg Neutrophils # Seg Neutrophils # Man Lymphocytes # (Manual) Monocytes # (Manual) Eosinophils # (Manual) Basophils # (Manual) PT INR Fibrinogen dRVVT Confirm Interp Factor V Activity POC ABG pH POC ABG pCO2 POC ABG pO2 ABG pO2 ABG HCO3 ABG Base Excess ABG Hemoglobin Oxyhemoglobin Sodium Potassium Chloride Carbon Dioxide BUN 59 H Creatinine Glucose 298 H POC Glucose 144 H 125 H Lactic Acid Calcium Phosphorus Magnesium Direct Bilirubin AST ALT Alkaline Phosphatase Lactate Dehydrogenase Troponin T C-Reactive Protein Total Protein Albumin Prealbumin Triglycerides Cholesterol LDL Cholesterol Direct HDL Cholesterol Urine pH Urine WBC (Auto) Urine Creatinine Urine Total Protein Fluid Total Protein Vancomycin Trough Rheumatoid Factor Complement C4 Miscellaneous Test Crossmatch 12/31/16 12/31/16 12/31/16 05:11 12:18 18:17 WBC RBC Hgb Hct MCV MCH MCHC RDW Plt Count Lymph % (Auto) [place] % (Auto) Lymph # [place] # Baso # Seg Neutrophils % Seg Neuts % (Manual) Lymphocytes % (Manual) Monocytes % (Manual) Eosinophils % (Manual) Basophils % (Manual) Nucleated RBC % Seg Neutrophils # Seg Neutrophils # Man Lymphocytes # (Manual) Monocytes # (Manual) Eosinophils # (Manual) Basophils # (Manual) PT INR Fibrinogen dRVVT Confirm Interp Factor V Activity POC ABG pH POC ABG pCO2 POC ABG pO2 ABG pO2 ABG HCO3 ABG Base Excess ABG Hemoglobin Oxyhemoglobin Sodium Potassium Chloride Carbon Dioxide BUN Creatinine Glucose POC Glucose 167 H 125 H 133 H Lactic Acid Calcium Phosphorus Magnesium Direct Bilirubin AST ALT Alkaline Phosphatase Lactate Dehydrogenase Troponin T C-Reactive Protein Total Protein Albumin Prealbumin Triglycerides Cholesterol LDL Cholesterol Direct HDL Cholesterol Urine pH Urine WBC (Auto) Urine Creatinine Urine Total Protein Fluid Total Protein Vancomycin Trough Rheumatoid Factor Complement C4 Miscellaneous Test Crossmatch 12/31/16 01/01/17 01/01/17 23:55 05:00 05:12 WBC RBC Hgb Hct MCV MCH MCHC RDW Plt Count Lymph % (Auto) [place] % (Auto) Lymph # [place] # Baso # Seg Neutrophils % Seg Neuts % (Manual) Lymphocytes % (Manual) Monocytes % (Manual) Eosinophils % (Manual) Basophils % (Manual) Nucleated RBC % Seg Neutrophils # Seg Neutrophils # Man Lymphocytes # (Manual) Monocytes # (Manual) Eosinophils # (Manual) Basophils # (Manual) PT INR Fibrinogen dRVVT Confirm Interp Factor V Activity POC ABG pH POC ABG pCO2 POC ABG pO2 ABG pO2 ABG HCO3 ABG Base Excess ABG Hemoglobin Oxyhemoglobin Sodium Potassium Chloride Carbon Dioxide BUN 76 H Creatinine 1.5 H Glucose 109 H POC Glucose 129 H 129 H Lactic Acid Calcium Phosphorus Magnesium Direct Bilirubin AST ALT Alkaline Phosphatase 536 H Lactate Dehydrogenase Troponin T C-Reactive Protein Total Protein Albumin 1.5 L Prealbumin Triglycerides Cholesterol LDL Cholesterol Direct HDL Cholesterol Urine pH Urine WBC (Auto) Urine Creatinine Urine Total Protein Fluid Total Protein Vancomycin Trough Rheumatoid Factor Complement C4 Miscellaneous Test Crossmatch 01/01/17 01/01/17 01/01/17 12:25 17:01 23:32 WBC RBC Hgb Hct MCV MCH MCHC RDW Plt Count Lymph % (Auto) [place] % (Auto) Lymph # [place] # Baso # Seg Neutrophils % Seg Neuts % (Manual) Lymphocytes % (Manual) Monocytes % (Manual) Eosinophils % (Manual) Basophils % (Manual) Nucleated RBC % Seg Neutrophils # Seg Neutrophils # Man Lymphocytes # (Manual) Monocytes # (Manual) Eosinophils # (Manual) Basophils # (Manual) PT INR Fibrinogen dRVVT Confirm Interp Factor V Activity POC ABG pH POC ABG pCO2 POC ABG pO2 ABG pO2 ABG HCO3 ABG Base Excess ABG Hemoglobin Oxyhemoglobin Sodium Potassium Chloride Carbon Dioxide BUN Creatinine Glucose POC Glucose 140 H 142 H 112 H Lactic Acid Calcium Phosphorus Magnesium Direct Bilirubin AST ALT Alkaline Phosphatase Lactate Dehydrogenase Troponin T C-Reactive Protein Total Protein Albumin Prealbumin Triglycerides Cholesterol LDL Cholesterol Direct HDL Cholesterol Urine pH Urine WBC (Auto) Urine Creatinine Urine Total Protein Fluid Total Protein Vancomycin Trough Rheumatoid Factor Complement C4 Miscellaneous Test Crossmatch 01/02/17 01/02/17 01/02/17 04:56 06:00 11:37 WBC RBC Hgb Hct MCV MCH MCHC RDW Plt Count Lymph % (Auto) [place] % (Auto) Lymph # [place] # Baso # Seg Neutrophils % Seg Neuts % (Manual) Lymphocytes % (Manual) Monocytes % (Manual) Eosinophils % (Manual) Basophils % (Manual) Nucleated RBC % Seg Neutrophils # Seg Neutrophils # Man Lymphocytes # (Manual) Monocytes # (Manual) Eosinophils # (Manual) Basophils # (Manual) PT INR Fibrinogen dRVVT Confirm Interp Factor V Activity POC ABG pH POC ABG pCO2 POC ABG pO2 ABG pO2 ABG HCO3 ABG Base Excess ABG Hemoglobin Oxyhemoglobin Sodium Potassium Chloride Carbon Dioxide BUN 88 H Creatinine 1.7 H Glucose 113 H POC Glucose 136 H 200 H Lactic Acid Calcium Phosphorus Magnesium Direct Bilirubin AST ALT Alkaline Phosphatase Lactate Dehydrogenase Troponin T C-Reactive Protein Total Protein Albumin Prealbumin Triglycerides Cholesterol LDL Cholesterol Direct HDL Cholesterol Urine pH Urine WBC (Auto) Urine Creatinine Urine Total Protein Fluid Total Protein Vancomycin Trough Rheumatoid Factor Complement C4 Miscellaneous Test Crossmatch 01/02/17 01/02/17 01/03/17 17:42 22:52 04:54 WBC RBC Hgb Hct MCV MCH MCHC RDW Plt Count Lymph % (Auto) [place] % (Auto) Lymph # [place] # Baso # Seg Neutrophils % Seg Neuts % (Manual) Lymphocytes % (Manual) Monocytes % (Manual) Eosinophils % (Manual) Basophils % (Manual) Nucleated RBC % Seg Neutrophils # Seg Neutrophils # Man Lymphocytes # (Manual) Monocytes # (Manual) Eosinophils # (Manual) Basophils # (Manual) PT INR Fibrinogen dRVVT Confirm Interp Factor V Activity POC ABG pH POC ABG pCO2 POC ABG pO2 ABG pO2 ABG HCO3 ABG Base Excess ABG Hemoglobin Oxyhemoglobin Sodium Potassium Chloride Carbon Dioxide BUN Creatinine Glucose POC Glucose 112 H 133 H 111 H Lactic Acid Calcium Phosphorus Magnesium Direct Bilirubin AST ALT Alkaline Phosphatase Lactate Dehydrogenase Troponin T C-Reactive Protein Total Protein Albumin Prealbumin Triglycerides Cholesterol LDL Cholesterol Direct HDL Cholesterol Urine pH Urine WBC (Auto) Urine Creatinine Urine Total Protein Fluid Total Protein Vancomycin Trough Rheumatoid Factor Complement C4 Miscellaneous Test Crossmatch 01/03/17 01/03/17 01/03/17 05:00 05:00 14:02 WBC 11.2 H RBC 2.56 L Hgb 7.2 L Hct 22.3 L MCV MCH MCHC RDW 17.3 H Plt Count Lymph % (Auto) [place] % (Auto) 10.0 H Lymph # [place] # 1.1 H Baso # Seg Neutrophils % 70.5 H Seg Neuts % (Manual) Lymphocytes % (Manual) Monocytes % (Manual) Eosinophils % (Manual) Basophils % (Manual) Nucleated RBC % Seg Neutrophils # 7.9 H Seg Neutrophils # Man Lymphocytes # (Manual) Monocytes # (Manual) Eosinophils # (Manual) Basophils # (Manual) PT INR Fibrinogen dRVVT Confirm Interp Factor V Activity POC ABG pH POC ABG pCO2 POC ABG pO2 ABG pO2 ABG HCO3 ABG Base Excess ABG Hemoglobin Oxyhemoglobin Sodium Potassium Chloride Carbon Dioxide BUN 60 H Creatinine 1.3 H Glucose 110 H POC Glucose 119 H Lactic Acid Calcium Phosphorus Magnesium Direct Bilirubin AST ALT Alkaline Phosphatase Lactate Dehydrogenase Troponin T C-Reactive Protein Total Protein Albumin Prealbumin Triglycerides Cholesterol LDL Cholesterol Direct HDL Cholesterol Urine pH Urine WBC (Auto) Urine Creatinine Urine Total Protein Fluid Total Protein Vancomycin Trough Rheumatoid Factor Complement C4 Miscellaneous Test Crossmatch 01/03/17 01/03/17 01/04/17 18:13 23:40 05:57 WBC RBC Hgb Hct MCV MCH MCHC RDW Plt Count Lymph % (Auto) [place] % (Auto) Lymph # [place] # Baso # Seg Neutrophils % Seg Neuts % (Manual) Lymphocytes % (Manual) Monocytes % (Manual) Eosinophils % (Manual) Basophils % (Manual) Nucleated RBC % Seg Neutrophils # Seg Neutrophils # Man Lymphocytes # (Manual) Monocytes # (Manual) Eosinophils # (Manual) Basophils # (Manual) PT INR Fibrinogen dRVVT Confirm Interp Factor V Activity POC ABG pH POC ABG pCO2 POC ABG pO2 ABG pO2 ABG HCO3 ABG Base Excess ABG Hemoglobin Oxyhemoglobin Sodium Potassium Chloride Carbon Dioxide BUN Creatinine Glucose POC Glucose 107 H 129 H 111 H Lactic Acid Calcium Phosphorus Magnesium Direct Bilirubin AST ALT Alkaline Phosphatase Lactate Dehydrogenase Troponin T C-Reactive Protein Total Protein Albumin Prealbumin Triglycerides Cholesterol LDL Cholesterol Direct HDL Cholesterol Urine pH Urine WBC (Auto) Urine Creatinine Urine Total Protein Fluid Total Protein Vancomycin Trough Rheumatoid Factor Complement C4 Miscellaneous Test Crossmatch 01/04/17 01/04/17 01/04/17 12:46 15:27 17:11 WBC RBC Hgb Hct MCV MCH MCHC RDW Plt Count Lymph % (Auto) [place] % (Auto) Lymph # [place] # Baso # Seg Neutrophils % Seg Neuts % (Manual) Lymphocytes % (Manual) Monocytes % (Manual) Eosinophils % (Manual) Basophils % (Manual) Nucleated RBC % Seg Neutrophils # Seg Neutrophils # Man Lymphocytes # (Manual) Monocytes # (Manual) Eosinophils # (Manual) Basophils # (Manual) PT INR Fibrinogen dRVVT Confirm Interp Factor V Activity POC ABG pH POC ABG pCO2 POC ABG pO2 ABG pO2 ABG HCO3 ABG Base Excess ABG Hemoglobin Oxyhemoglobin Sodium Potassium Chloride Carbon Dioxide BUN 43 H Creatinine Glucose 124 H POC Glucose 159 H 125 H Lactic Acid Calcium 8.0 L Phosphorus 2.10 L Magnesium Direct Bilirubin AST ALT Alkaline Phosphatase Lactate Dehydrogenase Troponin T C-Reactive Protein Total Protein Albumin Prealbumin Triglycerides Cholesterol LDL Cholesterol Direct HDL Cholesterol Urine pH Urine WBC (Auto) Urine Creatinine Urine Total Protein Fluid Total Protein Vancomycin Trough Rheumatoid Factor Complement C4 Miscellaneous Test Crossmatch 01/04/17 01/05/17 01/05/17 23:31 04:00 05:46 WBC RBC Hgb Hct MCV MCH MCHC RDW Plt Count Lymph % (Auto) [place] % (Auto) Lymph # [place] # Baso # Seg Neutrophils % Seg Neuts % (Manual) Lymphocytes % (Manual) Monocytes % (Manual) Eosinophils % (Manual) Basophils % (Manual) Nucleated RBC % Seg Neutrophils # Seg Neutrophils # Man Lymphocytes # (Manual) Monocytes # (Manual) Eosinophils # (Manual) Basophils # (Manual) PT INR Fibrinogen dRVVT Confirm Interp Factor V Activity POC ABG pH POC ABG pCO2 POC ABG pO2 ABG pO2 ABG HCO3 ABG Base Excess ABG Hemoglobin Oxyhemoglobin Sodium Potassium Chloride Carbon Dioxide BUN 52 H Creatinine 1.3 H Glucose 113 H POC Glucose 123 H 118 H Lactic Acid Calcium Phosphorus 2.40 L Magnesium Direct Bilirubin AST ALT Alkaline Phosphatase Lactate Dehydrogenase Troponin T C-Reactive Protein Total Protein Albumin Prealbumin Triglycerides Cholesterol LDL Cholesterol Direct HDL Cholesterol Urine pH Urine WBC (Auto) Urine Creatinine Urine Total Protein Fluid Total Protein Vancomycin Trough Rheumatoid Factor Complement C4 Miscellaneous Test Crossmatch 01/05/17 01/05/17 01/05/17 11:41 17:48 23:27 WBC RBC Hgb Hct MCV MCH MCHC RDW Plt Count Lymph % (Auto) [place] % (Auto) Lymph # [place] # Baso # Seg Neutrophils % Seg Neuts % (Manual) Lymphocytes % (Manual) Monocytes % (Manual) Eosinophils % (Manual) Basophils % (Manual) Nucleated RBC % Seg Neutrophils # Seg Neutrophils # Man Lymphocytes # (Manual) Monocytes # (Manual) Eosinophils # (Manual) Basophils # (Manual) PT INR Fibrinogen dRVVT Confirm Interp Factor V Activity POC ABG pH POC ABG pCO2 POC ABG pO2 ABG pO2 ABG HCO3 ABG Base Excess ABG Hemoglobin Oxyhemoglobin Sodium Potassium Chloride Carbon Dioxide BUN Creatinine Glucose POC Glucose 163 H 142 H 155 H Lactic Acid Calcium Phosphorus Magnesium Direct Bilirubin AST ALT Alkaline Phosphatase Lactate Dehydrogenase Troponin T C-Reactive Protein Total Protein Albumin Prealbumin Triglycerides Cholesterol LDL Cholesterol Direct HDL Cholesterol Urine pH Urine WBC (Auto) Urine Creatinine Urine Total Protein Fluid Total Protein Vancomycin Trough Rheumatoid Factor Complement C4 Miscellaneous Test Crossmatch 01/06/17 01/06/17 01/06/17 05:20 07:35 11:18 WBC RBC Hgb Hct MCV MCH MCHC RDW Plt Count Lymph % (Auto) [place] % (Auto) Lymph # [place] # Baso # Seg Neutrophils % Seg Neuts % (Manual) Lymphocytes % (Manual) Monocytes % (Manual) Eosinophils % (Manual) Basophils % (Manual) Nucleated RBC % Seg Neutrophils # Seg Neutrophils # Man Lymphocytes # (Manual) Monocytes # (Manual) Eosinophils # (Manual) Basophils # (Manual) PT INR Fibrinogen dRVVT Confirm Interp Factor V Activity POC ABG pH POC ABG pCO2 POC ABG pO2 ABG pO2 ABG HCO3 ABG Base Excess ABG Hemoglobin Oxyhemoglobin Sodium Potassium Chloride Carbon Dioxide BUN 74 H Creatinine 1.6 H Glucose 135 H POC Glucose 108 H 149 H Lactic Acid Calcium Phosphorus Magnesium Direct Bilirubin AST ALT Alkaline Phosphatase Lactate Dehydrogenase Troponin T C-Reactive Protein Total Protein Albumin Prealbumin Triglycerides Cholesterol LDL Cholesterol Direct HDL Cholesterol Urine pH Urine WBC (Auto) Urine Creatinine Urine Total Protein Fluid Total Protein Vancomycin Trough Rheumatoid Factor Complement C4 Miscellaneous Test Crossmatch 01/06/17 01/07/17 01/07/17 17:17 00:23 05:31 WBC RBC Hgb Hct MCV MCH MCHC RDW Plt Count Lymph % (Auto) [place] % (Auto) Lymph # [place] # Baso # Seg Neutrophils % Seg Neuts % (Manual) Lymphocytes % (Manual) Monocytes % (Manual) Eosinophils % (Manual) Basophils % (Manual) Nucleated RBC % Seg Neutrophils # Seg Neutrophils # Man Lymphocytes # (Manual) Monocytes # (Manual) Eosinophils # (Manual) Basophils # (Manual) PT INR Fibrinogen dRVVT Confirm Interp Factor V Activity POC ABG pH POC ABG pCO2 POC ABG pO2 ABG pO2 ABG HCO3 ABG Base Excess ABG Hemoglobin Oxyhemoglobin Sodium Potassium Chloride Carbon Dioxide BUN Creatinine Glucose POC Glucose 146 H 165 H 153 H Lactic Acid Calcium Phosphorus Magnesium Direct Bilirubin AST ALT Alkaline Phosphatase Lactate Dehydrogenase Troponin T C-Reactive Protein Total Protein Albumin Prealbumin Triglycerides Cholesterol LDL Cholesterol Direct HDL Cholesterol Urine pH Urine WBC (Auto) Urine Creatinine Urine Total Protein Fluid Total Protein Vancomycin Trough Rheumatoid Factor Complement C4 Miscellaneous Test Crossmatch 01/07/17 01/07/17 01/07/17 06:00 11:39 17:11 WBC RBC Hgb Hct MCV MCH MCHC RDW Plt Count Lymph % (Auto) [place] % (Auto) Lymph # [place] # Baso # Seg Neutrophils % Seg Neuts % (Manual) Lymphocytes % (Manual) Monocytes % (Manual) Eosinophils % (Manual) Basophils % (Manual) Nucleated RBC % Seg Neutrophils # Seg Neutrophils # Man Lymphocytes # (Manual) Monocytes # (Manual) Eosinophils # (Manual) Basophils # (Manual) PT INR Fibrinogen dRVVT Confirm Interp Factor V Activity POC ABG pH POC ABG pCO2 POC ABG pO2 ABG pO2 ABG HCO3 ABG Base Excess ABG Hemoglobin Oxyhemoglobin Sodium Potassium Chloride Carbon Dioxide BUN 42 H Creatinine Glucose 175 H POC Glucose 163 H 163 H Lactic Acid Calcium Phosphorus 2.40 L D Magnesium Direct Bilirubin AST ALT Alkaline Phosphatase Lactate Dehydrogenase Troponin T C-Reactive Protein Total Protein Albumin Prealbumin Triglycerides Cholesterol LDL Cholesterol Direct HDL Cholesterol Urine pH Urine WBC (Auto) Urine Creatinine Urine Total Protein Fluid Total Protein Vancomycin Trough Rheumatoid Factor Complement C4 Miscellaneous Test Crossmatch 01/07/17 01/08/17 01/08/17 23:40 05:00 05:00 WBC 27.4 H RBC 2.27 L Hgb 6.1 L Hct 20.4 L MCV MCH 27 L MCHC RDW 17.8 H Plt Count Lymph % (Auto) [place] % (Auto) Lymph # [place] # Baso # Seg Neutrophils % Seg Neuts % (Manual) Lymphocytes % (Manual) Monocytes % (Manual) Eosinophils % (Manual) Basophils % (Manual) Nucleated RBC % Seg Neutrophils # Seg Neutrophils # Man Lymphocytes # (Manual) Monocytes # (Manual) Eosinophils # (Manual) Basophils # (Manual) PT INR Fibrinogen dRVVT Confirm Interp Factor V Activity POC ABG pH POC ABG pCO2 POC ABG pO2 ABG pO2 ABG HCO3 ABG Base Excess ABG Hemoglobin Oxyhemoglobin Sodium Potassium Chloride Carbon Dioxide 16 L D BUN 62 H Creatinine 1.6 H D Glucose 103 H POC Glucose 135 H Lactic Acid Calcium Phosphorus Magnesium Direct Bilirubin AST ALT Alkaline Phosphatase Lactate Dehydrogenase Troponin T C-Reactive Protein Total Protein Albumin Prealbumin Triglycerides Cholesterol LDL Cholesterol Direct HDL Cholesterol Urine pH Urine WBC (Auto) Urine Creatinine Urine Total Protein Fluid Total Protein Vancomycin Trough Rheumatoid Factor Complement C4 Miscellaneous Test Crossmatch 01/08/17 01/08/17 01/08/17 05:25 10:37 10:37 WBC RBC Hgb Hct MCV MCH MCHC RDW Plt Count Lymph % (Auto) [place] % (Auto) Lymph # [place] # Baso # Seg Neutrophils % Seg Neuts % (Manual) Lymphocytes % (Manual) Monocytes % (Manual) Eosinophils % (Manual) Basophils % (Manual) Nucleated RBC % Seg Neutrophils # Seg Neutrophils # Man Lymphocytes # (Manual) Monocytes # (Manual) Eosinophils # (Manual) Basophils # (Manual) PT INR Fibrinogen dRVVT Confirm Interp Factor V Activity POC ABG pH POC ABG pCO2 POC ABG pO2 ABG pO2 ABG HCO3 ABG Base Excess ABG Hemoglobin Oxyhemoglobin Sodium Potassium Chloride Carbon Dioxide BUN Creatinine Glucose POC Glucose 106 H Lactic Acid Calcium Phosphorus Magnesium Direct Bilirubin AST ALT Alkaline Phosphatase Lactate Dehydrogenase Troponin T C-Reactive Protein 24.40 H Total Protein Albumin Prealbumin Triglycerides Cholesterol LDL Cholesterol Direct HDL Cholesterol Urine pH Urine WBC (Auto) Urine Creatinine Urine Total Protein Fluid Total Protein Vancomycin Trough Rheumatoid Factor Complement C4 Miscellaneous Test Crossmatch See Detail 01/08/17 01/08/17 01/08/17 10:37 11:33 15:15 WBC RBC Hgb Hct MCV MCH MCHC RDW Plt Count Lymph % (Auto) [place] % (Auto) Lymph # [place] # Baso # Seg Neutrophils % Seg Neuts % (Manual) Lymphocytes % (Manual) Monocytes % (Manual) Eosinophils % (Manual) Basophils % (Manual) Nucleated RBC % Seg Neutrophils # Seg Neutrophils # Man Lymphocytes # (Manual) Monocytes # (Manual) Eosinophils # (Manual) Basophils # (Manual) PT INR Fibrinogen dRVVT Confirm Interp Factor V Activity POC ABG pH POC ABG pCO2 POC ABG pO2 ABG pO2 ABG HCO3 ABG Base Excess ABG Hemoglobin Oxyhemoglobin Sodium Potassium Chloride Carbon Dioxide BUN Creatinine Glucose POC Glucose 157 H Lactic Acid 9.70 H* 9.10 H* Calcium Phosphorus Magnesium Direct Bilirubin AST ALT Alkaline Phosphatase Lactate Dehydrogenase Troponin T C-Reactive Protein Total Protein Albumin Prealbumin Triglycerides Cholesterol LDL Cholesterol Direct HDL Cholesterol Urine pH Urine WBC (Auto) Urine Creatinine Urine Total Protein Fluid Total Protein Vancomycin Trough Rheumatoid Factor Complement C4 Miscellaneous Test Crossmatch 01/08/17 01/08/17 01/09/17 17:19 23:12 04:40 WBC RBC Hgb Hct MCV MCH MCHC RDW Plt Count Lymph % (Auto) [place] % (Auto) Lymph # [place] # Baso # Seg Neutrophils % Seg Neuts % (Manual) Lymphocytes % (Manual) Monocytes % (Manual) Eosinophils % (Manual) Basophils % (Manual) Nucleated RBC % Seg Neutrophils # Seg Neutrophils # Man Lymphocytes # (Manual) Monocytes # (Manual) Eosinophils # (Manual) Basophils # (Manual) PT INR Fibrinogen dRVVT Confirm Interp Factor V Activity POC ABG pH POC ABG pCO2 POC ABG pO2 ABG pO2 ABG HCO3 ABG Base Excess ABG Hemoglobin Oxyhemoglobin Sodium 147 H Potassium Chloride Carbon Dioxide BUN 82 H Creatinine 1.8 H Glucose 137 H POC Glucose 164 H 157 H Lactic Acid Calcium Phosphorus Magnesium Direct Bilirubin AST ALT Alkaline Phosphatase Lactate Dehydrogenase Troponin T C-Reactive Protein Total Protein Albumin Prealbumin Triglycerides Cholesterol LDL Cholesterol Direct HDL Cholesterol Urine pH Urine WBC (Auto) Urine Creatinine Urine Total Protein Fluid Total Protein Vancomycin Trough Rheumatoid Factor Complement C4 Miscellaneous Test Crossmatch 01/09/17 01/09/17 01/09/17 05:42 08:22 10:57 WBC RBC Hgb Hct MCV MCH MCHC RDW Plt Count Lymph % (Auto) [place] % (Auto) Lymph # [place] # Baso # Seg Neutrophils % Seg Neuts % (Manual) Lymphocytes % (Manual) Monocytes % (Manual) Eosinophils % (Manual) Basophils % (Manual) Nucleated RBC % Seg Neutrophils # Seg Neutrophils # Man Lymphocytes # (Manual) Monocytes # (Manual) Eosinophils # (Manual) Basophils # (Manual) PT INR Fibrinogen dRVVT Confirm Interp Factor V Activity POC ABG pH POC ABG pCO2 POC ABG pO2 ABG pO2 ABG HCO3 ABG Base Excess ABG Hemoglobin Oxyhemoglobin Sodium Potassium Chloride Carbon Dioxide BUN Creatinine Glucose POC Glucose 156 H 122 H Lactic Acid 2.30 H* Calcium Phosphorus Magnesium Direct Bilirubin AST ALT Alkaline Phosphatase Lactate Dehydrogenase Troponin T C-Reactive Protein Total Protein Albumin Prealbumin Triglycerides Cholesterol LDL Cholesterol Direct HDL Cholesterol Urine pH Urine WBC (Auto) Urine Creatinine Urine Total Protein Fluid Total Protein Vancomycin Trough Rheumatoid Factor Complement C4 Miscellaneous Test Crossmatch 01/09/17 01/09/17 01/09/17 13:30 17:14 18:45 WBC RBC Hgb Hct MCV MCH MCHC RDW Plt Count Lymph % (Auto) [place] % (Auto) Lymph # [place] # Baso # Seg Neutrophils % Seg Neuts % (Manual) Lymphocytes % (Manual) Monocytes % (Manual) Eosinophils % (Manual) Basophils % (Manual) Nucleated RBC % Seg Neutrophils # Seg Neutrophils # Man Lymphocytes # (Manual) Monocytes # (Manual) Eosinophils # (Manual) Basophils # (Manual) PT INR Fibrinogen dRVVT Confirm Interp Factor V Activity POC ABG pH POC ABG pCO2 POC ABG pO2 ABG pO2 ABG HCO3 ABG Base Excess ABG Hemoglobin Oxyhemoglobin Sodium Potassium Chloride Carbon Dioxide BUN Creatinine Glucose POC Glucose 127 H Lactic Acid Calcium Phosphorus Magnesium Direct Bilirubin AST ALT Alkaline Phosphatase Lactate Dehydrogenase Troponin T C-Reactive Protein 24.70 H Total Protein Albumin Prealbumin Triglycerides Cholesterol LDL Cholesterol Direct HDL Cholesterol Urine pH Urine WBC (Auto) Urine Creatinine Urine Total Protein Fluid Total Protein Vancomycin Trough Rheumatoid Factor Complement C4 Miscellaneous Test Flexitest 1 H Crossmatch 01/10/17 01/10/17 01/10/17 01:21 04:00 04:00 WBC 18.1 H RBC 3.22 L Hgb 8.8 L Hct 27.0 L D MCV MCH 27 L MCHC RDW 17.0 H Plt Count Lymph % (Auto) [place] % (Auto) Lymph # [place] # Baso # Seg Neutrophils % Seg Neuts % (Manual) Lymphocytes % (Manual) Monocytes % (Manual) Eosinophils % (Manual) Basophils % (Manual) Nucleated RBC % Seg Neutrophils # Seg Neutrophils # Man Lymphocytes # (Manual) Monocytes # (Manual) Eosinophils # (Manual) Basophils # (Manual) PT INR Fibrinogen dRVVT Confirm Interp Factor V Activity POC ABG pH POC ABG pCO2 POC ABG pO2 ABG pO2 ABG HCO3 ABG Base Excess ABG Hemoglobin Oxyhemoglobin Sodium Potassium Chloride Carbon Dioxide BUN 59 H Creatinine 1.3 H Glucose 122 H POC Glucose 160 H Lactic Acid Calcium Phosphorus Magnesium Direct Bilirubin AST ALT Alkaline Phosphatase Lactate Dehydrogenase Troponin T C-Reactive Protein Total Protein Albumin Prealbumin Triglycerides Cholesterol LDL Cholesterol Direct HDL Cholesterol Urine pH Urine WBC (Auto) Urine Creatinine Urine Total Protein Fluid Total Protein Vancomycin Trough Rheumatoid Factor Complement C4 Miscellaneous Test Crossmatch 01/10/17 01/10/17 01/10/17 05:36 12:14 17:55 WBC RBC Hgb Hct MCV MCH MCHC RDW Plt Count Lymph % (Auto) [place] % (Auto) Lymph # [place] # Baso # Seg Neutrophils % Seg Neuts % (Manual) Lymphocytes % (Manual) Monocytes % (Manual) Eosinophils % (Manual) Basophils % (Manual) Nucleated RBC % Seg Neutrophils # Seg Neutrophils # Man Lymphocytes # (Manual) Monocytes # (Manual) Eosinophils # (Manual) Basophils # (Manual) PT INR Fibrinogen dRVVT Confirm Interp Factor V Activity POC ABG pH POC ABG pCO2 POC ABG pO2 ABG pO2 ABG HCO3 ABG Base Excess ABG Hemoglobin Oxyhemoglobin Sodium Potassium Chloride Carbon Dioxide BUN Creatinine Glucose POC Glucose 163 H 120 H 144 H Lactic Acid Calcium Phosphorus Magnesium Direct Bilirubin AST ALT Alkaline Phosphatase Lactate Dehydrogenase Troponin T C-Reactive Protein Total Protein Albumin Prealbumin Triglycerides Cholesterol LDL Cholesterol Direct HDL Cholesterol Urine pH Urine WBC (Auto) Urine Creatinine Urine Total Protein Fluid Total Protein Vancomycin Trough Rheumatoid Factor Complement C4 Miscellaneous Test Crossmatch 11/22/17 11/22/17 11/22/17 00:09 04:00 04:00 WBC 15.8 H RBC 3.04 L Hgb 8.2 L Hct 25.5 L MCV MCH 27 L MCHC RDW 17.3 H Plt Count Lymph % (Auto) [place] % (Auto) Lymph # [place] # Baso # Seg Neutrophils % Seg Neuts % (Manual) Lymphocytes % (Manual) Monocytes % (Manual) Eosinophils % (Manual) Basophils % (Manual) Nucleated RBC % Seg Neutrophils # Seg Neutrophils # Man Lymphocytes # (Manual) Monocytes # (Manual) Eosinophils # (Manual) Basophils # (Manual) PT INR Fibrinogen dRVVT Confirm Interp Factor V Activity POC ABG pH POC ABG pCO2 POC ABG pO2 ABG pO2 ABG HCO3 ABG Base Excess ABG Hemoglobin Oxyhemoglobin Sodium Potassium Chloride Carbon Dioxide BUN 78 H Creatinine 1.6 H Glucose 109 H POC Glucose 122 H Lactic Acid Calcium Phosphorus Magnesium Direct Bilirubin AST ALT Alkaline Phosphatase Lactate Dehydrogenase Troponin T C-Reactive Protein Total Protein Albumin Prealbumin Triglycerides Cholesterol LDL Cholesterol Direct HDL Cholesterol Urine pH Urine WBC (Auto) Urine Creatinine Urine Total Protein Fluid Total Protein Vancomycin Trough Rheumatoid Factor Complement C4 Miscellaneous Test Crossmatch 01/11/17 01/11/17 01/11/17 12:46 18:23 23:42 WBC RBC Hgb Hct MCV MCH MCHC RDW Plt Count Lymph % (Auto) [place] % (Auto) Lymph # [place] # Baso # Seg Neutrophils % Seg Neuts % (Manual) Lymphocytes % (Manual) Monocytes % (Manual) Eosinophils % (Manual) Basophils % (Manual) Nucleated RBC % Seg Neutrophils # Seg Neutrophils # Man Lymphocytes # (Manual) Monocytes # (Manual) Eosinophils # (Manual) Basophils # (Manual) PT INR Fibrinogen dRVVT Confirm Interp Factor V Activity POC ABG pH POC ABG pCO2 POC ABG pO2 ABG pO2 ABG HCO3 ABG Base Excess ABG Hemoglobin Oxyhemoglobin Sodium Potassium Chloride Carbon Dioxide BUN Creatinine Glucose POC Glucose 148 H 125 H 124 H Lactic Acid Calcium Phosphorus Magnesium Direct Bilirubin AST ALT Alkaline Phosphatase Lactate Dehydrogenase Troponin T C-Reactive Protein Total Protein Albumin Prealbumin Triglycerides Cholesterol LDL Cholesterol Direct HDL Cholesterol Urine pH Urine WBC (Auto) Urine Creatinine Urine Total Protein Fluid Total Protein Vancomycin Trough Rheumatoid Factor Complement C4 Miscellaneous Test Crossmatch 01/12/17 01/12/17 01/12/17 04:30 04:30 05:47 WBC 15.8 H RBC 3.31 L Hgb 8.9 L Hct 27.9 L MCV MCH 27 L MCHC RDW 17.4 H Plt Count Lymph % (Auto) [place] % (Auto) Lymph # [place] # Baso # Seg Neutrophils % Seg Neuts % (Manual) Lymphocytes % (Manual) Monocytes % (Manual) Eosinophils % (Manual) Basophils % (Manual) Nucleated RBC % Seg Neutrophils # Seg Neutrophils # Man Lymphocytes # (Manual) Monocytes # (Manual) Eosinophils # (Manual) Basophils # (Manual) PT INR Fibrinogen dRVVT Confirm Interp Factor V Activity POC ABG pH POC ABG pCO2 POC ABG pO2 ABG pO2 ABG HCO3 ABG Base Excess ABG Hemoglobin Oxyhemoglobin Sodium Potassium Chloride Carbon Dioxide BUN 57 H Creatinine Glucose 121 H POC Glucose 110 H Lactic Acid Calcium Phosphorus 2.10 L Magnesium Direct Bilirubin AST ALT Alkaline Phosphatase Lactate Dehydrogenase Troponin T C-Reactive Protein Total Protein Albumin Prealbumin Triglycerides Cholesterol LDL Cholesterol Direct HDL Cholesterol Urine pH Urine WBC (Auto) Urine Creatinine Urine Total Protein Fluid Total Protein Vancomycin Trough Rheumatoid Factor Complement C4 Miscellaneous Test Crossmatch 01/12/17 01/12/17 01/12/17 11:35 17:45 23:14 WBC RBC Hgb Hct MCV MCH MCHC RDW Plt Count Lymph % (Auto) [place] % (Auto) Lymph # [place] # Baso # Seg Neutrophils % Seg Neuts % (Manual) Lymphocytes % (Manual) Monocytes % (Manual) Eosinophils % (Manual) Basophils % (Manual) Nucleated RBC % Seg Neutrophils # Seg Neutrophils # Man Lymphocytes # (Manual) Monocytes # (Manual) Eosinophils # (Manual) Basophils # (Manual) PT INR Fibrinogen dRVVT Confirm Interp Factor V Activity POC ABG pH POC ABG pCO2 POC ABG pO2 ABG pO2 ABG HCO3 ABG Base Excess ABG Hemoglobin Oxyhemoglobin Sodium Potassium Chloride Carbon Dioxide BUN Creatinine Glucose POC Glucose 146 H 117 H 123 H Lactic Acid Calcium Phosphorus Magnesium Direct Bilirubin AST ALT Alkaline Phosphatase Lactate Dehydrogenase Troponin T C-Reactive Protein Total Protein Albumin Prealbumin Triglycerides Cholesterol LDL Cholesterol Direct HDL Cholesterol Urine pH Urine WBC (Auto) Urine Creatinine Urine Total Protein Fluid Total Protein Vancomycin Trough Rheumatoid Factor Complement C4 Miscellaneous Test Crossmatch 01/13/17 01/13/17 01/13/17 05:32 06:00 12:17 WBC RBC Hgb Hct MCV MCH MCHC RDW Plt Count Lymph % (Auto) [place] % (Auto) Lymph # [place] # Baso # Seg Neutrophils % Seg Neuts % (Manual) Lymphocytes % (Manual) Monocytes % (Manual) Eosinophils % (Manual) Basophils % (Manual) Nucleated RBC % Seg Neutrophils # Seg Neutrophils # Man Lymphocytes # (Manual) Monocytes # (Manual) Eosinophils # (Manual) Basophils # (Manual) PT INR Fibrinogen dRVVT Confirm Interp Factor V Activity POC ABG pH POC ABG pCO2 POC ABG pO2 ABG pO2 ABG HCO3 ABG Base Excess ABG Hemoglobin Oxyhemoglobin Sodium Potassium Chloride Carbon Dioxide BUN 80 H Creatinine 1.4 H Glucose 106 H POC Glucose 106 H 168 H Lactic Acid Calcium Phosphorus Magnesium Direct Bilirubin AST ALT Alkaline Phosphatase Lactate Dehydrogenase Troponin T C-Reactive Protein Total Protein Albumin Prealbumin Triglycerides Cholesterol LDL Cholesterol Direct HDL Cholesterol Urine pH Urine WBC (Auto) Urine Creatinine Urine Total Protein Fluid Total Protein Vancomycin Trough Rheumatoid Factor Complement C4 Miscellaneous Test Crossmatch 01/13/17 01/13/17 01/13/17 15:50 17:30 23:42 WBC RBC Hgb Hct MCV MCH MCHC RDW Plt Count Lymph % (Auto) [place] % (Auto) Lymph # [place] # Baso # Seg Neutrophils % Seg Neuts % (Manual) Lymphocytes % (Manual) Monocytes % (Manual) Eosinophils % (Manual) Basophils % (Manual) Nucleated RBC % Seg Neutrophils # Seg Neutrophils # Man Lymphocytes # (Manual) Monocytes # (Manual) Eosinophils # (Manual) Basophils # (Manual) PT 15.4 H INR 1.16 H Fibrinogen dRVVT Confirm Interp Factor V Activity POC ABG pH POC ABG pCO2 POC ABG pO2 ABG pO2 ABG HCO3 ABG Base Excess ABG Hemoglobin Oxyhemoglobin Sodium Potassium Chloride Carbon Dioxide BUN Creatinine Glucose POC Glucose 110 H 155 H Lactic Acid Calcium Phosphorus Magnesium Direct Bilirubin AST ALT Alkaline Phosphatase Lactate Dehydrogenase Troponin T C-Reactive Protein Total Protein Albumin Prealbumin Triglycerides Cholesterol LDL Cholesterol Direct HDL Cholesterol Urine pH Urine WBC (Auto) Urine Creatinine Urine Total Protein Fluid Total Protein Vancomycin Trough Rheumatoid Factor Complement C4 Miscellaneous Test Crossmatch 01/14/17 01/14/17 01/14/17 05:24 05:30 12:48 WBC RBC Hgb Hct MCV MCH MCHC RDW Plt Count Lymph % (Auto) [place] % (Auto) Lymph # [place] # Baso # Seg Neutrophils % Seg Neuts % (Manual) Lymphocytes % (Manual) Monocytes % (Manual) Eosinophils % (Manual) Basophils % (Manual) Nucleated RBC % Seg Neutrophils # Seg Neutrophils # Man Lymphocytes # (Manual) Monocytes # (Manual) Eosinophils # (Manual) Basophils # (Manual) PT INR Fibrinogen dRVVT Confirm Interp Factor V Activity POC ABG pH POC ABG pCO2 POC ABG pO2 ABG pO2 ABG HCO3 ABG Base Excess ABG Hemoglobin Oxyhemoglobin Sodium Potassium Chloride Carbon Dioxide BUN 58 H Creatinine Glucose 114 H POC Glucose 121 H 130 H Lactic Acid Calcium Phosphorus Magnesium Direct Bilirubin AST ALT Alkaline Phosphatase Lactate Dehydrogenase Troponin T C-Reactive Protein Total Protein Albumin Prealbumin Triglycerides Cholesterol LDL Cholesterol Direct HDL Cholesterol Urine pH Urine WBC (Auto) Urine Creatinine Urine Total Protein Fluid Total Protein Vancomycin Trough Rheumatoid Factor Complement C4 Miscellaneous Test Crossmatch 01/14/17 01/15/17 01/15/17 17:36 00:15 05:01 WBC RBC Hgb Hct MCV MCH MCHC RDW Plt Count Lymph % (Auto) [place] % (Auto) Lymph # [place] # Baso # Seg Neutrophils % Seg Neuts % (Manual) Lymphocytes % (Manual) Monocytes % (Manual) Eosinophils % (Manual) Basophils % (Manual) Nucleated RBC % Seg Neutrophils # Seg Neutrophils # Man Lymphocytes # (Manual) Monocytes # (Manual) Eosinophils # (Manual) Basophils # (Manual) PT INR Fibrinogen dRVVT Confirm Interp Factor V Activity POC ABG pH POC ABG pCO2 POC ABG pO2 ABG pO2 ABG HCO3 ABG Base Excess ABG Hemoglobin Oxyhemoglobin Sodium Potassium Chloride Carbon Dioxide BUN Creatinine Glucose POC Glucose 135 H 132 H 126 H Lactic Acid Calcium Phosphorus Magnesium Direct Bilirubin AST ALT Alkaline Phosphatase Lactate Dehydrogenase Troponin T C-Reactive Protein Total Protein Albumin Prealbumin Triglycerides Cholesterol LDL Cholesterol Direct HDL Cholesterol Urine pH Urine WBC (Auto) Urine Creatinine Urine Total Protein Fluid Total Protein Vancomycin Trough Rheumatoid Factor Complement C4 Miscellaneous Test Crossmatch Allied health notes reviewed: RT
[2017-01-15] MEDS: NACL 0.9% IV SCH (12:25)
[2017-01-15] MEDS: MERREM IV SCH (12:25)
[2017-01-15 13:03] LABS: Basophils % (Auto) 0.3 % (0.0-1.8); Eosinophils % (Auto) 0.1 % (0.0-4.3); Hematocrit 25.4 % (30.3-42.9); Hemoglobin 8.1 gm/dl (10.1-14.3); Lymphocytes # (Auto) 1.9 K/mm3 (1.2-5.4); Lymphocytes % (Auto) 11.7 % (13.4-35.0); Mean Corpuscular HGB Conc 32 % (30-34); Mean Corpuscular Hemoglobin 27 pg (28-32); Mean Corpuscular Volume 85 fl (79-97); Monocytes # (Auto) 1.3 K/mm3 (0.0-0.8); Monocytes % (Auto) 7.8 % (0.0-7.3); Platelet Count 287 K/mm3 (140-440); Red Cell Distribution Width 17.6 % (13.2-15.2)
[2017-01-15 13:16] LABS: Calcium 8.8 mg/dL (8.4-10.2)
[2017-01-15] MEDS ORDERED: TPN ADULT IV SCH (20:00)
[2017-01-16] MEDS: DUONEB *Not for PRN Use IH SCH ×4 (02:40→19:30)
[2017-01-16] MEDS: REGLAN IV SCH ×3 (05:37→22:30)
[2017-01-16] MEDS: LOPRESSOR PO SCH ×4 (05:37→17:58)
[2017-01-16 05:48] LABS: Calcium 8.9 mg/dL (8.4-10.2)
[2017-01-16] MEDS: HumuLIN R SUB-Q SCH ×4 (06:55→18:20)
--- NOTE | 2017-01-16 07:18 | Event Note ---
Date: 01/16/17 Imaging reviewed, patient with insufficient fluid to require chest tube. Results the patient's thoracentesis noted.
--- NOTE | 2017-01-16 09:09 | Progress Note ---
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 * Her tachycardia seems to have improved. * Tolerating TPN well at this time. Shall monitor her electrolytes * monitor for renal recovery * Rate control per cardiology * Dose medications for renal function * Avoid potential nephrotoxins Subjective Date of service: 01/16/17 Principal diagnosis: Acute resp failure on MVS; S/P Acute CVA; Acute Encephalopathy; JUANITA Interval history: Patient remains on the ventilator. Currently on 35% FiO2. Off pressors. TPN infusing. Objective - Vital Signs Vital signs: Vital Signs - 12hr 01/15/17 01/15/17 01/15/17 22:00 22:09 22:44 Temperature Pulse Rate 88 89 90 Pulse Rate [ Anterior Bilateral Throughout] Pulse Rate [ Bilateral Throughout] Pulse Rate [ From Monitor] Respiratory 24 27 H Rate Respiratory Rate [Anterior Bilateral Throughout] Respiratory Rate [Bilateral Throughout] Blood Pressure 122/75 122/75 122/75 O2 Sat by Pulse 100 97 Oximetry O2 Sat by Pulse Oximetry [ Assessment] 01/15/17 01/15/17 01/15/17 23:00 23:21 23:59 Temperature 97.6 F Pulse Rate 93 H 93 H Pulse Rate [ Anterior Bilateral Throughout] Pulse Rate [ Bilateral Throughout] Pulse Rate [ From Monitor] Respiratory 27 H Rate Respiratory Rate [Anterior Bilateral Throughout] Respiratory Rate [Bilateral Throughout] Blood Pressure 126/77 124/75 O2 Sat by Pulse 99 97 Oximetry O2 Sat by Pulse Oximetry [ Assessment] 01/16/17 01/16/17 01/16/17 00:00 00:55 01:00 Temperature Pulse Rate 93 H 99 H Pulse Rate [ Anterior Bilateral Throughout] Pulse Rate [ Bilateral Throughout] Pulse Rate [ 96 H From Monitor] Respiratory 18 28 H Rate Respiratory Rate [Anterior Bilateral Throughout] Respiratory Rate [Bilateral Throughout] Blood Pressure 124/75 129/76 O2 Sat by Pulse 98 93 Oximetry O2 Sat by Pulse 100 Oximetry [ Assessment] 01/16/17 01/16/17 01/16/17 02:00 02:35 02:45 Temperature Pulse Rate 96 H Pulse Rate [ 99 H 95 H Anterior Bilateral Throughout] Pulse Rate [ Bilateral Throughout] Pulse Rate [ From Monitor] Respiratory 28 H Rate Respiratory 22 19 Rate [Anterior Bilateral Throughout] Respiratory Rate [Bilateral Throughout] Blood Pressure 132/83 O2 Sat by Pulse 99 Oximetry O2 Sat by Pulse Oximetry [ Assessment] 01/16/17 01/16/17 01/16/17 03:00 03:32 04:00 Temperature 98.8 F Pulse Rate 94 H 90 Pulse Rate [ Anterior Bilateral Throughout] Pulse Rate [ Bilateral Throughout] Pulse Rate [ 92 H From Monitor] Respiratory 27 H 26 H Rate Respiratory Rate [Anterior Bilateral Throughout] Respiratory Rate [Bilateral Throughout] Blood Pressure 140/80 124/76 O2 Sat by Pulse 99 99 Oximetry O2 Sat by Pulse Oximetry [ Assessment] 01/16/17 01/16/17 01/16/17 04:20 05:00 05:37 Temperature Pulse Rate 95 H 95 H 97 H Pulse Rate [ Anterior Bilateral Throughout] Pulse Rate [ Bilateral Throughout] Pulse Rate [ From Monitor] Respiratory 29 H Rate Respiratory Rate [Anterior Bilateral Throughout] Respiratory Rate [Bilateral Throughout] Blood Pressure 138/85 126/74 126/74 O2 Sat by Pulse 95 96 Oximetry O2 Sat by Pulse Oximetry [ Assessment] 01/16/17 01/16/17 01/16/17 06:01 07:01 08:00 Temperature 99.4 F Pulse Rate 93 H 89 92 H Pulse Rate [ Anterior Bilateral Throughout] Pulse Rate [ Bilateral Throughout] Pulse Rate [ 94 H From Monitor] Respiratory 26 H 33 H 31 H Rate Respiratory Rate [Anterior Bilateral Throughout] Respiratory Rate [Bilateral Throughout] Blood Pressure 126/74 126/74 142/82 O2 Sat by Pulse 98 96 100 Oximetry O2 Sat by Pulse Oximetry [ Assessment] 01/16/17 01/16/17 08:53 08:58 Temperature Pulse Rate 88 Pulse Rate [ Anterior Bilateral Throughout] Pulse Rate [ 88 Bilateral Throughout] Pulse Rate [ From Monitor] Respiratory Rate Respiratory Rate [Anterior Bilateral Throughout] Respiratory 30 H Rate [Bilateral Throughout] Blood Pressure 142/82 O2 Sat by Pulse 95 Oximetry O2 Sat by Pulse Oximetry [ Assessment] - General Appearance General appearance: well-developed, well-nourished, appears stated age EENT: PERRL, mucous membranes moist Neck: other (tracheostomy in place. Connected to the ventilator. Left IJ PermCath in place) Respiratory: Present: Clear to Ascultation Cardiology: regular, normal heart rate Gastrointestinal: normoactive bowel sounds, other (collection bag noted over her old PEG tube site) Integumentary: no rash, other (1+ edema) - Lab 01/15/17 12:45 01/16/17 Unknown Most recent lab results ABG pH 7.450 pH Units (7.350-7.450) 12/05/16 Unknown ABG pCO2 29.6 mm Hg 12/05/16 Unknown ABG pO2 75.2 mm Hg (80.0-90.0) L 12/05/16 Unknown ABG HCO3 20.1 mmol/L (20.0-26.0) 12/05/16 Unknown ABG O2 Saturation 96.8 % (95.0-99.0) 12/05/16 Unknown Calcium 8.9 mg/dL (8.4-10.2) 01/16/17 Unknown Phosphorus 5.80 mg/dL (2.5-4.5) H 01/16/17 Unknown Magnesium 2.30 mg/dL (1.7-2.3) 01/16/17 Unknown Urine Creatinine 19.7 mg/dL (0.1-20.0) 11/12/16 10:18 Urine Sodium 36 mEq/L 09/16/16 19:19 Urine Total Protein 16 mg/dL (5-11.8) H 09/16/16 19:19
[2017-01-16] MEDS ORDERED: NACL 0.9% 100 ML IV PRN (09:10)
[2017-01-16] MEDS: DAKIN'S HALF STRENGTH TP SCH ×2 (09:33→22:16)
--- NOTE | 2017-01-16 09:41 | XRay Report ---
AP CHEST :01/16/17 CLINICAL: Aspiration. COMPARISON:01/14/17 FINDINGS: The tracheostomy and feeding tubes are satisfactory and unchanged. Left PICC line tip remains in the distal SVC and a left Vas-Cath tip remains in the right atrium. The heart is normal size. Mild central vascular congestion. Diffuse haziness of the right in the thorax is not significantly changed compared to prior exams. There is slightly greater opacification in the left lung base with silhouetting of the left hemidiaphragm. No pneumothorax. IMPRESSION: Increased left basal opacification since the last exam but similar to previous exams. No definite pneumonia.
[2017-01-16] MEDS: ROBINUL PO SCH ×2 (10:27→22:23)
[2017-01-16] MEDS: CORDARONE PO SCH ×2 (10:27→22:16)
[2017-01-16] MEDS: HEPARIN SUB-Q SCH ×2 (10:28→22:32)
[2017-01-16] MEDS: PROTONIX FEEDTUBE SCH (10:28)
[2017-01-16] MEDS: NORVASC PO SCH (10:28)
[2017-01-16] MEDS: DURAGESIC TD SCH (10:29)
[2017-01-16] MEDS: NACL 0.9% IV SCH (10:32)
[2017-01-16] MEDS: MERREM IV SCH (10:32)
--- NOTE | 2017-01-16 11:01 | Progress Note ---
Assessment and Plan Acute Hypoxemic Respiratory Failure (now with exacerbation and back on MVS) Hypertension (unable to receive p.o. meds) Atrial Fibrillation with RVR s/p tracheostomy Acute encephalopathy s/p CVA Oropharyngeal dysphagia Enterococcal bacteremia sepsis syndrome Sacral Decubitus Ulcer (s/p surgical debridement) Anemia Obesity JUANITA now on hemodialysis Enteric Fistula (Unfortunately no significant fluid drained during thoracentesis; repeat CXR's demonstrate persistent pleural effusion without overt new aspirate seen ) - Hold tube feeds due to persistent emesis; continue reglan at 5mg IV q6h - continue HD/UF per nephrology; with CXR picture and chest ultrasound i will recommend continued UF sessions at least 3 x weekly as tolerated - will consider right chest tube placement for continuous suction and see if aids weaning - continue fentanyl patch for pain issues especially s/p debridement - continue wound care per WCT and RN's (she is s/p surgical debridement) - continue anti-infectives per ID recs - prn CRP & lactate levels if clinically indicated (Follow WBC also) - keep on with daily PSV trials and / or T-piece as tolerated (was on 03/07 prior to emesis today) - continue TPN administration - continue scopolamine for secretion control - continue to wean FiO2 for sats > 94% - continue bronchodilators and pulmonary toilet - VAP bundle addressed - continue prn IV metorolol - continue metoprolol and amlodipine (hold for hypotension) - continue to follow electrolytes and correct as necessary - continue GI & VTE prophylaxis - Continue flu & pneumovax per protocol - ethics consult placed and pending .....she remains critically ill on life sustaining interventions including MVS and at risk for further deterioration including ....32' CCT today without overlap ....care plan discussed at length during team rounds ...longterm prognosis remains guarded and this has intermittently been conveyed to family Subjective Date of service: 01/16/17 Principal diagnosis: Acute resp failure on MVS; S/P Acute CVA; Acute Encephalopathy; JUANITA Interval history: Patient is seen today for: Acute resp failure on MVS; S/P Acute CVA; Acute Encephalopathy; JUANITA Seen and examined at bedside; 24hour events reviewed; nursing and respiratory care staff consulted; no adverse overnight events reported to me; silvia remains critically ill and is still not tolerating weaning well; vomited earlier with likely aspiration re: increased oxygen needs; remained on reglan; tolerating HD/UF; no new issues otherwise Objective Vital Signs - 12hr 01/15/17 01/15/17 01/16/17 23:21 23:59 00:00 Temperature 97.6 F Pulse Rate 93 H 93 H Pulse Rate [ Anterior Bilateral Throughout] Pulse Rate [ Bilateral Throughout] Pulse Rate [ 96 H From Monitor] Respiratory 18 Rate Respiratory Rate [Anterior Bilateral Throughout] Respiratory Rate [Bilateral Throughout] Blood Pressure 124/75 124/75 O2 Sat by Pulse 97 98 Oximetry O2 Sat by Pulse Oximetry [ Assessment] 01/16/17 01/16/17 01/16/17 00:55 01:00 02:00 Temperature Pulse Rate 99 H 96 H Pulse Rate [ Anterior Bilateral Throughout] Pulse Rate [ Bilateral Throughout] Pulse Rate [ From Monitor] Respiratory 28 H 28 H Rate Respiratory Rate [Anterior Bilateral Throughout] Respiratory Rate [Bilateral Throughout] Blood Pressure 129/76 132/83 O2 Sat by Pulse 93 99 Oximetry O2 Sat by Pulse 100 Oximetry [ Assessment] 01/16/17 01/16/17 01/16/17 02:35 02:45 03:00 Temperature Pulse Rate 94 H Pulse Rate [ 99 H 95 H Anterior Bilateral Throughout] Pulse Rate [ Bilateral Throughout] Pulse Rate [ From Monitor] Respiratory 27 H Rate Respiratory 22 19 Rate [Anterior Bilateral Throughout] Respiratory Rate [Bilateral Throughout] Blood Pressure 140/80 O2 Sat by Pulse 99 Oximetry O2 Sat by Pulse Oximetry [ Assessment] 01/16/17 01/16/17 01/16/17 03:32 04:00 04:20 Temperature 98.8 F Pulse Rate 90 95 H Pulse Rate [ Anterior Bilateral Throughout] Pulse Rate [ Bilateral Throughout] Pulse Rate [ 92 H From Monitor] Respiratory 26 H Rate Respiratory Rate [Anterior Bilateral Throughout] Respiratory Rate [Bilateral Throughout] Blood Pressure 124/76 138/85 O2 Sat by Pulse 99 95 Oximetry O2 Sat by Pulse Oximetry [ Assessment] 01/16/17 01/16/17 01/16/17 05:00 05:37 06:01 Temperature Pulse Rate 95 H 97 H 93 H Pulse Rate [ Anterior Bilateral Throughout] Pulse Rate [ Bilateral Throughout] Pulse Rate [ From Monitor] Respiratory 29 H 26 H Rate Respiratory Rate [Anterior Bilateral Throughout] Respiratory Rate [Bilateral Throughout] Blood Pressure 126/74 126/74 126/74 O2 Sat by Pulse 96 98 Oximetry O2 Sat by Pulse Oximetry [ Assessment] 01/16/17 01/16/17 01/16/17 07:01 08:00 08:53 Temperature 99.4 F Pulse Rate 89 92 H 88 Pulse Rate [ Anterior Bilateral Throughout] Pulse Rate [ Bilateral Throughout] Pulse Rate [ 94 H From Monitor] Respiratory 33 H 31 H Rate Respiratory Rate [Anterior Bilateral Throughout] Respiratory Rate [Bilateral Throughout] Blood Pressure 126/74 142/82 142/82 O2 Sat by Pulse 96 100 95 Oximetry O2 Sat by Pulse Oximetry [ Assessment] 01/16/17 01/16/17 01/16/17 08:58 09:00 09:15 Temperature Pulse Rate 89 Pulse Rate [ Anterior Bilateral Throughout] Pulse Rate [ 88 83 Bilateral Throughout] Pulse Rate [ From Monitor] Respiratory 26 H Rate Respiratory Rate [Anterior Bilateral Throughout] Respiratory 30 H 25 H Rate [Bilateral Throughout] Blood Pressure 102/54 O2 Sat by Pulse 93 Oximetry O2 Sat by Pulse Oximetry [ Assessment] 01/16/17 10:00 Temperature Pulse Rate 90 Pulse Rate [ Anterior Bilateral Throughout] Pulse Rate [ Bilateral Throughout] Pulse Rate [ From Monitor] Respiratory 25 H Rate Respiratory Rate [Anterior Bilateral Throughout] Respiratory Rate [Bilateral Throughout] Blood Pressure 118/67 O2 Sat by Pulse 99 Oximetry O2 Sat by Pulse Oximetry [ Assessment] Constitutional: appears uncomfortable, other (not tracking) Eyes: non-icteric, other (tracheostomy tube in midline of neck) ENT: oropharynx moist, oropharyngeal exudate pre Neck: supple, no lymphadenopathy, no JVD, other (no thyromegaly) Effort: mildly labored Ascultation: Bilateral: rhonchi (and referred upper airway sounds) Percussion: Bilateral: dull (bases) Cardiovascular: regular rate and rhythm, other (no rubs / murmurs) Gastrointestinal: hypoactive bowel sounds, soft, non-tender, non-distended, other (RLQ & LUQ stomas with colostomy bags) Integumentary: decubitus ulcer (sacral; stage 4 s/p surgical debridement), other (no rash; no cellulitis; poor turgor) Extremities: no cyanosis, pulses normal, no ischemia or petechiae, edema (1+ bilaterally) Neurologic: pupils equal and round, unable to assess, other (encephalopathic) Psychiatric: other (unable to assess) CBC and BMP: 01/15/17 12:45 01/17/17 05:30 ABG, PT/INR, D-dimer: ABG POC ABG pH 7.503 (7.35-7.45) H 12/19/16 09:36 ABG pH 7.450 pH Units (7.350-7.450) 12/05/16 Unknown POC ABG pCO2 30.1 (35-45) L 12/19/16 09:36 ABG pCO2 29.6 mm Hg 12/05/16 Unknown POC ABG pO2 85 (80-105) 12/19/16 09:36 ABG pO2 75.2 mm Hg (80.0-90.0) L 12/05/16 Unknown POC ABG HCO3 23.6 12/19/16 09:36 POC ABG Total CO2 25 12/19/16 09:36 POC ABG O2 Sat 97 12/19/16 09:36 ABG O2 Saturation 96.8 % (95.0-99.0) 12/05/16 Unknown PT/INR, D-dimer PT 15.4 Sec. (12.2-14.9) H 01/13/17 15:50 INR 1.16 (0.87-1.13) H 01/13/17 15:50 Abnormal lab findings: Abnormal Labs 09/03/16 09/03/16 09/03/16 00:03 00:10 00:10 WBC 13.9 H RBC 5.95 H Hgb Hct 44.0 H MCV 74 L MCH 22 L MCHC RDW 17.5 H Plt Count Lymph % (Auto) Creek % (Auto) Lymph # [place] # Baso # Seg Neutrophils % Seg Neuts % (Manual) Lymphocytes % (Manual) 54.0 H Monocytes % (Manual) Eosinophils % (Manual) Basophils % (Manual) Nucleated RBC % Seg Neutrophils # Seg Neutrophils # Man Lymphocytes # (Manual) 7.5 H Monocytes # (Manual) Eosinophils # (Manual) Basophils # (Manual) PT INR Fibrinogen dRVVT Confirm Interp Factor V Activity POC ABG pH POC ABG pCO2 POC ABG pO2 ABG pO2 ABG HCO3 ABG Base Excess ABG Hemoglobin Oxyhemoglobin Sodium Potassium 2.8 L* Chloride Carbon Dioxide 21 L BUN Creatinine 1.7 H Glucose 159 H POC Glucose 177 H Lactic Acid Calcium Phosphorus Magnesium Direct Bilirubin AST ALT Alkaline Phosphatase Lactate Dehydrogenase Troponin T C-Reactive Protein Total Protein Albumin Prealbumin Triglycerides Cholesterol LDL Cholesterol Direct HDL Cholesterol Urine pH Urine WBC (Auto) Urine Creatinine Urine Total Protein Fluid Total Protein Vancomycin Trough Rheumatoid Factor Complement C4 Miscellaneous Test Crossmatch 09/03/16 09/03/16 09/03/16 12:12 15:07 16:20 WBC RBC Hgb Hct MCV MCH MCHC RDW Plt Count Lymph % (Auto) Creek % (Auto) Lymph # [place] # Baso # Seg Neutrophils % Seg Neuts % (Manual) Lymphocytes % (Manual) Monocytes % (Manual) Eosinophils % (Manual) Basophils % (Manual) Nucleated RBC % Seg Neutrophils # Seg Neutrophils # Man Lymphocytes # (Manual) Monocytes # (Manual) Eosinophils # (Manual) Basophils # (Manual) PT INR Fibrinogen dRVVT Confirm Interp Factor V Activity POC ABG pH 7.452 H POC ABG pCO2 POC ABG pO2 ABG pO2 ABG HCO3 ABG Base Excess ABG Hemoglobin Oxyhemoglobin Sodium Potassium Chloride Carbon Dioxide BUN Creatinine Glucose POC Glucose 178 H Lactic Acid Calcium Phosphorus 2.20 L Magnesium 1.60 L Direct Bilirubin AST ALT Alkaline Phosphatase Lactate Dehydrogenase Troponin T C-Reactive Protein Total Protein Albumin Prealbumin Triglycerides Cholesterol LDL Cholesterol Direct HDL Cholesterol Urine pH Urine WBC (Auto) Urine Creatinine Urine Total Protein Fluid Total Protein Vancomycin Trough Rheumatoid Factor Complement C4 Miscellaneous Test Crossmatch 09/03/16 09/03/16 09/03/16 17:57 17:58 23:50 WBC RBC Hgb Hct MCV MCH MCHC RDW Plt Count Lymph % (Auto) Creek % (Auto) Lymph # [place] # Baso # Seg Neutrophils % Seg Neuts % (Manual) Lymphocytes % (Manual) Monocytes % (Manual) Eosinophils % (Manual) Basophils % (Manual) Nucleated RBC % Seg Neutrophils # Seg Neutrophils # Man Lymphocytes # (Manual) Monocytes # (Manual) Eosinophils # (Manual) Basophils # (Manual) PT INR Fibrinogen dRVVT Confirm Interp Factor V Activity POC ABG pH POC ABG pCO2 POC ABG pO2 ABG pO2 ABG HCO3 ABG Base Excess ABG Hemoglobin Oxyhemoglobin Sodium Potassium Chloride Carbon Dioxide BUN Creatinine Glucose POC Glucose 162 H 145 H Lactic Acid Calcium Phosphorus 2.30 L Magnesium Direct Bilirubin AST ALT Alkaline Phosphatase Lactate Dehydrogenase Troponin T C-Reactive Protein Total Protein Albumin Prealbumin Triglycerides Cholesterol LDL Cholesterol Direct HDL Cholesterol Urine pH Urine WBC (Auto) Urine Creatinine Urine Total Protein Fluid Total Protein Vancomycin Trough Rheumatoid Factor Complement C4 Miscellaneous Test Crossmatch 09/04/16 09/04/16 09/04/16 03:31 03:31 05:42 WBC RBC Hgb 9.7 L D Hct MCV 72 L MCH 23 L MCHC RDW 17.5 H Plt Count Lymph % (Auto) 11.1 L [place] % (Auto) Lymph # [place] # Baso # Seg Neutrophils % 84.3 H Seg Neuts % (Manual) Lymphocytes % (Manual) Monocytes % (Manual) Eosinophils % (Manual) Basophils % (Manual) Nucleated RBC % Seg Neutrophils # 8.9 H Seg Neutrophils # Man Lymphocytes # (Manual) Monocytes # (Manual) Eosinophils # (Manual) Basophils # (Manual) PT INR Fibrinogen dRVVT Confirm Interp Factor V Activity POC ABG pH POC ABG pCO2 POC ABG pO2 ABG pO2 ABG HCO3 ABG Base Excess ABG Hemoglobin Oxyhemoglobin Sodium 135 L Potassium 2.9 L* Chloride 97.2 L Carbon Dioxide 19 L BUN Creatinine 1.7 H Glucose 170 H POC Glucose 152 H Lactic Acid Calcium Phosphorus Magnesium Direct Bilirubin AST ALT Alkaline Phosphatase Lactate Dehydrogenase Troponin T C-Reactive Protein Total Protein Albumin Prealbumin Triglycerides 160 H Cholesterol LDL Cholesterol Direct HDL Cholesterol 31 L Urine pH Urine WBC (Auto) Urine Creatinine Urine Total Protein Fluid Total Protein Vancomycin Trough Rheumatoid Factor Complement C4 Miscellaneous Test Crossmatch 09/04/16 09/04/16 09/04/16 11:34 17:46 23:29 WBC RBC Hgb Hct MCV MCH MCHC RDW Plt Count Lymph % (Auto) Creek % (Auto) Lymph # [place] # Baso # Seg Neutrophils % Seg Neuts % (Manual) Lymphocytes % (Manual) Monocytes % (Manual) Eosinophils % (Manual) Basophils % (Manual) Nucleated RBC % Seg Neutrophils # Seg Neutrophils # Man Lymphocytes # (Manual) Monocytes # (Manual) Eosinophils # (Manual) Basophils # (Manual) PT INR Fibrinogen dRVVT Confirm Interp Factor V Activity POC ABG pH POC ABG pCO2 POC ABG pO2 ABG pO2 ABG HCO3 ABG Base Excess ABG Hemoglobin Oxyhemoglobin Sodium Potassium Chloride Carbon Dioxide BUN Creatinine Glucose POC Glucose 165 H 210 H 139 H Lactic Acid Calcium Phosphorus Magnesium Direct Bilirubin AST ALT Alkaline Phosphatase Lactate Dehydrogenase Troponin T C-Reactive Protein Total Protein Albumin Prealbumin Triglycerides Cholesterol LDL Cholesterol Direct HDL Cholesterol Urine pH Urine WBC (Auto) Urine Creatinine Urine Total Protein Fluid Total Protein Vancomycin Trough Rheumatoid Factor Complement C4 Miscellaneous Test Crossmatch 09/05/16 09/05/16 09/05/16 04:05 04:05 05:38 WBC RBC Hgb Hct MCV 76 L D MCH 23 L MCHC RDW 17.8 H Plt Count Lymph % (Auto) Creek % (Auto) Lymph # [place] # Baso # Seg Neutrophils % Seg Neuts % (Manual) Lymphocytes % (Manual) Monocytes % (Manual) Eosinophils % (Manual) Basophils % (Manual) Nucleated RBC % Seg Neutrophils # Seg Neutrophils # Man Lymphocytes # (Manual) Monocytes # (Manual) Eosinophils # (Manual) Basophils # (Manual) PT INR Fibrinogen dRVVT Confirm Interp Factor V Activity POC ABG pH POC ABG pCO2 POC ABG pO2 ABG pO2 ABG HCO3 ABG Base Excess ABG Hemoglobin Oxyhemoglobin Sodium 134 L Potassium Chloride Carbon Dioxide 18 L BUN Creatinine 1.8 H Glucose 192 H POC Glucose 175 H Lactic Acid Calcium Phosphorus Magnesium Direct Bilirubin AST ALT Alkaline Phosphatase Lactate Dehydrogenase Troponin T C-Reactive Protein Total Protein Albumin Prealbumin Triglycerides Cholesterol LDL Cholesterol Direct HDL Cholesterol Urine pH Urine WBC (Auto) Urine Creatinine Urine Total Protein Fluid Total Protein Vancomycin Trough Rheumatoid Factor Complement C4 Miscellaneous Test Crossmatch 09/05/16 09/05/16 09/05/16 11:38 17:48 23:22 WBC RBC Hgb Hct MCV MCH MCHC RDW Plt Count Lymph % (Auto) Creek % (Auto) Lymph # [place] # Baso # Seg Neutrophils % Seg Neuts % (Manual) Lymphocytes % (Manual) Monocytes % (Manual) Eosinophils % (Manual) Basophils % (Manual) Nucleated RBC % Seg Neutrophils # Seg Neutrophils # Man Lymphocytes # (Manual) Monocytes # (Manual) Eosinophils # (Manual) Basophils # (Manual) PT INR Fibrinogen dRVVT Confirm Interp Factor V Activity POC ABG pH POC ABG pCO2 POC ABG pO2 ABG pO2 ABG HCO3 ABG Base Excess ABG Hemoglobin Oxyhemoglobin Sodium Potassium Chloride Carbon Dioxide BUN Creatinine Glucose POC Glucose 164 H 186 H 195 H Lactic Acid Calcium Phosphorus Magnesium Direct Bilirubin AST ALT Alkaline Phosphatase Lactate Dehydrogenase Troponin T C-Reactive Protein Total Protein Albumin Prealbumin Triglycerides Cholesterol LDL Cholesterol Direct HDL Cholesterol Urine pH Urine WBC (Auto) Urine Creatinine Urine Total Protein Fluid Total Protein Vancomycin Trough Rheumatoid Factor Complement C4 Miscellaneous Test Crossmatch 09/06/16 09/06/16 09/06/16 04:12 05:59 07:32 WBC RBC Hgb Hct MCV MCH MCHC RDW Plt Count Lymph % (Auto) Creek % (Auto) Lymph # [place] # Baso # Seg Neutrophils % Seg Neuts % (Manual) Lymphocytes % (Manual) Monocytes % (Manual) Eosinophils % (Manual) Basophils % (Manual) Nucleated RBC % Seg Neutrophils # Seg Neutrophils # Man Lymphocytes # (Manual) Monocytes # (Manual) Eosinophils # (Manual) Basophils # (Manual) PT INR Fibrinogen dRVVT Confirm Interp Factor V Activity POC ABG pH 7.514 H POC ABG pCO2 29.1 L POC ABG pO2 72 L ABG pO2 ABG HCO3 ABG Base Excess ABG Hemoglobin Oxyhemoglobin Sodium 133 L Potassium 3.4 L Chloride 94.9 L Carbon Dioxide 19 L BUN 30 H Creatinine 2.1 H Glucose 139 H POC Glucose 146 H Lactic Acid Calcium Phosphorus Magnesium Direct Bilirubin AST ALT Alkaline Phosphatase Lactate Dehydrogenase Troponin T C-Reactive Protein Total Protein Albumin Prealbumin Triglycerides Cholesterol LDL Cholesterol Direct HDL Cholesterol Urine pH Urine WBC (Auto) Urine Creatinine Urine Total Protein Fluid Total Protein Vancomycin Trough Rheumatoid Factor Complement C4 Miscellaneous Test Crossmatch 09/06/16 09/06/16 09/06/16 11:57 17:58 19:02 WBC RBC Hgb Hct MCV MCH MCHC RDW Plt Count Lymph % (Auto) Creek % (Auto) Lymph # [place] # Baso # Seg Neutrophils % Seg Neuts % (Manual) Lymphocytes % (Manual) Monocytes % (Manual) Eosinophils % (Manual) Basophils % (Manual) Nucleated RBC % Seg Neutrophils # Seg Neutrophils # Man Lymphocytes # (Manual) Monocytes # (Manual) Eosinophils # (Manual) Basophils # (Manual) PT INR Fibrinogen dRVVT Confirm Interp Factor V Activity POC ABG pH 7.465 H POC ABG pCO2 32.0 L POC ABG pO2 ABG pO2 ABG HCO3 ABG Base Excess ABG Hemoglobin Oxyhemoglobin Sodium Potassium Chloride Carbon Dioxide BUN Creatinine Glucose POC Glucose 165 H 160 H Lactic Acid Calcium Phosphorus Magnesium Direct Bilirubin AST ALT Alkaline Phosphatase Lactate Dehydrogenase Troponin T C-Reactive Protein Total Protein Albumin Prealbumin Triglycerides Cholesterol LDL Cholesterol Direct HDL Cholesterol Urine pH Urine WBC (Auto) Urine Creatinine Urine Total Protein Fluid Total Protein Vancomycin Trough Rheumatoid Factor Complement C4 Miscellaneous Test Crossmatch 09/06/16 09/07/16 09/07/16 23:45 02:47 02:47 WBC RBC Hgb Hct MCV MCH MCHC RDW Plt Count Lymph % (Auto) [place] % (Auto) Lymph # [place] # Baso # Seg Neutrophils % Seg Neuts % (Manual) Lymphocytes % (Manual) Monocytes % (Manual) Eosinophils % (Manual) Basophils % (Manual) Nucleated RBC % Seg Neutrophils # Seg Neutrophils # Man Lymphocytes # (Manual) Monocytes # (Manual) Eosinophils # (Manual) Basophils # (Manual) PT INR Fibrinogen dRVVT Confirm Interp Factor V Activity POC ABG pH POC ABG pCO2 POC ABG pO2 ABG pO2 ABG HCO3 ABG Base Excess ABG Hemoglobin Oxyhemoglobin Sodium Potassium Chloride Carbon Dioxide BUN Creatinine Glucose POC Glucose 204 H Lactic Acid Calcium Phosphorus Magnesium Direct Bilirubin AST ALT Alkaline Phosphatase Lactate Dehydrogenase Troponin T C-Reactive Protein Total Protein Albumin Prealbumin Triglycerides Cholesterol LDL Cholesterol Direct HDL Cholesterol Urine pH Urine WBC (Auto) 68.0 H Urine Creatinine 106.1 H Urine Total Protein Fluid Total Protein Vancomycin Trough Rheumatoid Factor Complement C4 Miscellaneous Test Crossmatch 09/07/16 09/07/16 09/07/16 04:50 06:19 06:39 WBC RBC Hgb Hct MCV MCH MCHC RDW Plt Count Lymph % (Auto) [place] % (Auto) Lymph # [place] # Baso # Seg Neutrophils % Seg Neuts % (Manual) Lymphocytes % (Manual) Monocytes % (Manual) Eosinophils % (Manual) Basophils % (Manual) Nucleated RBC % Seg Neutrophils # Seg Neutrophils # Man Lymphocytes # (Manual) Monocytes # (Manual) Eosinophils # (Manual) Basophils # (Manual) PT INR Fibrinogen dRVVT Confirm Interp Factor V Activity POC ABG pH 7.457 H POC ABG pCO2 32.1 L POC ABG pO2 76 L ABG pO2 ABG HCO3 ABG Base Excess ABG Hemoglobin Oxyhemoglobin Sodium 132 L Potassium Chloride 94.7 L Carbon Dioxide BUN 53 H Creatinine 2.9 H Glucose 151 H POC Glucose 149 H Lactic Acid Calcium Phosphorus Magnesium Direct Bilirubin AST ALT Alkaline Phosphatase Lactate Dehydrogenase Troponin T C-Reactive Protein Total Protein Albumin Prealbumin Triglycerides Cholesterol LDL Cholesterol Direct HDL Cholesterol Urine pH Urine WBC (Auto) Urine Creatinine Urine Total Protein Fluid Total Protein Vancomycin Trough Rheumatoid Factor Complement C4 Miscellaneous Test Crossmatch 09/07/16 09/07/16 09/07/16 09:20 11:43 11:43 WBC 19.4 H RBC Hgb 8.3 L Hct 26.4 L D MCV 72 L D MCH 22 L MCHC RDW 17.9 H Plt Count Lymph % (Auto) 8.5 L [place] % (Auto) Lymph # [place] # 1.0 H Baso # Seg Neutrophils % 85.8 H Seg Neuts % (Manual) Lymphocytes % (Manual) Monocytes % (Manual) Eosinophils % (Manual) Basophils % (Manual) Nucleated RBC % Seg Neutrophils # 16.6 H Seg Neutrophils # Man Lymphocytes # (Manual) Monocytes # (Manual) Eosinophils # (Manual) Basophils # (Manual) PT INR Fibrinogen dRVVT Confirm Interp Factor V Activity POC ABG pH POC ABG pCO2 POC ABG pO2 ABG pO2 ABG HCO3 ABG Base Excess ABG Hemoglobin Oxyhemoglobin Sodium 134 L Potassium Chloride 97.2 L Carbon Dioxide 20 L BUN 58 H Creatinine 2.9 H Glucose 147 H POC Glucose Lactic Acid Calcium Phosphorus 2.40 L Magnesium 2.40 H Direct Bilirubin AST ALT Alkaline Phosphatase Lactate Dehydrogenase Troponin T C-Reactive Protein Total Protein 5.8 L Albumin 2.2 L Prealbumin Triglycerides Cholesterol LDL Cholesterol Direct HDL Cholesterol Urine pH Urine WBC (Auto) Urine Creatinine Urine Total Protein Fluid Total Protein Vancomycin Trough Rheumatoid Factor Complement C4 58 H Miscellaneous Test Crossmatch 09/07/16 09/07/16 09/07/16 11:50 16:00 17:31 WBC RBC Hgb Hct MCV MCH MCHC RDW Plt Count Lymph % (Auto) [place] % (Auto) Lymph # [place] # Baso # Seg Neutrophils % Seg Neuts % (Manual) Lymphocytes % (Manual) Monocytes % (Manual) Eosinophils % (Manual) Basophils % (Manual) Nucleated RBC % Seg Neutrophils # Seg Neutrophils # Man Lymphocytes # (Manual) Monocytes # (Manual) Eosinophils # (Manual) Basophils # (Manual) PT INR Fibrinogen dRVVT Confirm Interp Factor V Activity POC ABG pH POC ABG pCO2 POC ABG pO2 158 H ABG pO2 ABG HCO3 ABG Base Excess ABG Hemoglobin Oxyhemoglobin Sodium Potassium Chloride Carbon Dioxide BUN Creatinine Glucose POC Glucose 175 H Lactic Acid Calcium Phosphorus Magnesium Direct Bilirubin AST ALT Alkaline Phosphatase Lactate Dehydrogenase Troponin T C-Reactive Protein Total Protein Albumin Prealbumin Triglycerides Cholesterol LDL Cholesterol Direct HDL Cholesterol Urine pH Urine WBC (Auto) Urine Creatinine 66.3 H Urine Total Protein Fluid Total Protein Vancomycin Trough Rheumatoid Factor Complement C4 Miscellaneous Test Crossmatch 09/07/16 09/08/16 09/08/16 23:50 05:46 06:18 WBC 17.8 H RBC 3.58 L Hgb 8.1 L Hct 25.5 L MCV 71 L MCH 23 L MCHC RDW 18.4 H Plt Count Lymph % (Auto) [place] % (Auto) Lymph # [place] # Baso # Seg Neutrophils % Seg Neuts % (Manual) 92.0 H Lymphocytes % (Manual) 6.0 L Monocytes % (Manual) Eosinophils % (Manual) Basophils % (Manual) Nucleated RBC % Seg Neutrophils # Seg Neutrophils # Man 16.4 H Lymphocytes # (Manual) 1.1 L Monocytes # (Manual) Eosinophils # (Manual) Basophils # (Manual) PT INR Fibrinogen dRVVT Confirm Interp Factor V Activity POC ABG pH POC ABG pCO2 34.3 L POC ABG pO2 71 L ABG pO2 ABG HCO3 ABG Base Excess ABG Hemoglobin Oxyhemoglobin Sodium Potassium Chloride Carbon Dioxide BUN Creatinine Glucose POC Glucose 216 H Lactic Acid Calcium Phosphorus Magnesium Direct Bilirubin AST ALT Alkaline Phosphatase Lactate Dehydrogenase Troponin T C-Reactive Protein Total Protein Albumin Prealbumin Triglycerides Cholesterol LDL Cholesterol Direct HDL Cholesterol Urine pH Urine WBC (Auto) Urine Creatinine Urine Total Protein Fluid Total Protein Vancomycin Trough Rheumatoid Factor Complement C4 Miscellaneous Test Crossmatch 09/08/16 09/08/16 09/08/16 06:18 06:51 10:55 WBC RBC Hgb Hct MCV MCH MCHC RDW Plt Count Lymph % (Auto) [place] % (Auto) Lymph # [place] # Baso # Seg Neutrophils % Seg Neuts % (Manual) Lymphocytes % (Manual) Monocytes % (Manual) Eosinophils % (Manual) Basophils % (Manual) Nucleated RBC % Seg Neutrophils # Seg Neutrophils # Man Lymphocytes # (Manual) Monocytes # (Manual) Eosinophils # (Manual) Basophils # (Manual) PT INR Fibrinogen dRVVT Confirm Interp Factor V Activity POC ABG pH POC ABG pCO2 POC ABG pO2 ABG pO2 ABG HCO3 ABG Base Excess ABG Hemoglobin Oxyhemoglobin Sodium 133 L Potassium Chloride 96.9 L Carbon Dioxide 20 L BUN 63 H Creatinine 2.7 H Glucose 195 H POC Glucose 204 H 169 H Lactic Acid Calcium Phosphorus Magnesium Direct Bilirubin AST ALT Alkaline Phosphatase Lactate Dehydrogenase Troponin T C-Reactive Protein Total Protein Albumin Prealbumin Triglycerides Cholesterol LDL Cholesterol Direct HDL Cholesterol Urine pH Urine WBC (Auto) Urine Creatinine Urine Total Protein Fluid Total Protein Vancomycin Trough Rheumatoid Factor Complement C4 Miscellaneous Test Crossmatch 09/08/16 09/08/16 09/08/16 11:48 11:48 11:48 WBC RBC Hgb Hct MCV MCH MCHC RDW Plt Count Lymph % (Auto) [place] % (Auto) Lymph # [place] # Baso # Seg Neutrophils % Seg Neuts % (Manual) Lymphocytes % (Manual) Monocytes % (Manual) Eosinophils % (Manual) Basophils % (Manual) Nucleated RBC % Seg Neutrophils # Seg Neutrophils # Man Lymphocytes # (Manual) Monocytes # (Manual) Eosinophils # (Manual) Basophils # (Manual) PT INR Fibrinogen 750 H dRVVT Confirm Interp Factor V Activity POC ABG pH POC ABG pCO2 POC ABG pO2 ABG pO2 ABG HCO3 ABG Base Excess ABG Hemoglobin Oxyhemoglobin Sodium Potassium Chloride Carbon Dioxide BUN Creatinine Glucose POC Glucose Lactic Acid Calcium Phosphorus Magnesium Direct Bilirubin AST ALT Alkaline Phosphatase Lactate Dehydrogenase Troponin T C-Reactive Protein 15.70 H Total Protein Albumin Prealbumin Triglycerides Cholesterol LDL Cholesterol Direct HDL Cholesterol Urine pH Urine WBC (Auto) Urine Creatinine Urine Total Protein Fluid Total Protein Vancomycin Trough Rheumatoid Factor 24 H Complement C4 Miscellaneous Test Crossmatch 09/08/16 09/08/16 09/09/16 15:35 18:25 00:24 WBC RBC Hgb Hct MCV MCH MCHC RDW Plt Count Lymph % (Auto) [place] % (Auto) Lymph # [place] # Baso # Seg Neutrophils % Seg Neuts % (Manual) Lymphocytes % (Manual) Monocytes % (Manual) Eosinophils % (Manual) Basophils % (Manual) Nucleated RBC % Seg Neutrophils # Seg Neutrophils # Man Lymphocytes # (Manual) Monocytes # (Manual) Eosinophils # (Manual) Basophils # (Manual) PT INR Fibrinogen dRVVT Confirm Interp Factor V Activity 182 H POC ABG pH POC ABG pCO2 POC ABG pO2 ABG pO2 ABG HCO3 ABG Base Excess ABG Hemoglobin Oxyhemoglobin Sodium Potassium Chloride Carbon Dioxide BUN Creatinine Glucose POC Glucose 184 H 216 H Lactic Acid Calcium Phosphorus Magnesium Direct Bilirubin AST ALT Alkaline Phosphatase Lactate Dehydrogenase Troponin T C-Reactive Protein Total Protein Albumin Prealbumin Triglycerides Cholesterol LDL Cholesterol Direct HDL Cholesterol Urine pH Urine WBC (Auto) Urine Creatinine Urine Total Protein Fluid Total Protein Vancomycin Trough Rheumatoid Factor Complement C4 Miscellaneous Test Crossmatch 09/09/16 09/09/16 09/09/16 03:00 03:00 04:04 WBC 27.9 H RBC Hgb 8.7 L Hct 28.1 L MCV 72 L MCH 22 L MCHC RDW 18.4 H Plt Count 485 H Lymph % (Auto) [place] % (Auto) Lymph # [place] # Baso # Seg Neutrophils % Seg Neuts % (Manual) 77.0 H Lymphocytes % (Manual) 9.0 L Monocytes % (Manual) Eosinophils % (Manual) Basophils % (Manual) Nucleated RBC % Seg Neutrophils # Seg Neutrophils # Man 21.5 H Lymphocytes # (Manual) Monocytes # (Manual) 2.0 H Eosinophils # (Manual) Basophils # (Manual) PT INR Fibrinogen dRVVT Confirm Interp Factor V Activity POC ABG pH POC ABG pCO2 POC ABG pO2 121 H ABG pO2 ABG HCO3 ABG Base Excess ABG Hemoglobin Oxyhemoglobin Sodium 135 L Potassium Chloride 96.3 L Carbon Dioxide 21 L BUN 83 H Creatinine 3.0 H Glucose 135 H POC Glucose Lactic Acid Calcium Phosphorus Magnesium Direct Bilirubin AST ALT Alkaline Phosphatase Lactate Dehydrogenase Troponin T C-Reactive Protein Total Protein Albumin Prealbumin Triglycerides Cholesterol LDL Cholesterol Direct HDL Cholesterol Urine pH Urine WBC (Auto) Urine Creatinine Urine Total Protein Fluid Total Protein Vancomycin Trough Rheumatoid Factor Complement C4 Miscellaneous Test Crossmatch 09/09/16 09/09/16 09/09/16 05:41 11:55 14:13 WBC RBC Hgb Hct MCV MCH MCHC RDW Plt Count Lymph % (Auto) [place] % (Auto) Lymph # [place] # Baso # Seg Neutrophils % Seg Neuts % (Manual) Lymphocytes % (Manual) Monocytes % (Manual) Eosinophils % (Manual) Basophils % (Manual) Nucleated RBC % Seg Neutrophils # Seg Neutrophils # Man Lymphocytes # (Manual) Monocytes # (Manual) Eosinophils # (Manual) Basophils # (Manual) PT INR Fibrinogen dRVVT Confirm Interp Factor V Activity POC ABG pH POC ABG pCO2 POC ABG pO2 ABG pO2 ABG HCO3 ABG Base Excess ABG Hemoglobin Oxyhemoglobin Sodium Potassium Chloride Carbon Dioxide BUN Creatinine Glucose POC Glucose 155 H 186 H Lactic Acid Calcium Phosphorus Magnesium Direct Bilirubin AST ALT Alkaline Phosphatase Lactate Dehydrogenase Troponin T C-Reactive Protein Total Protein Albumin Prealbumin Triglycerides Cholesterol LDL Cholesterol Direct HDL Cholesterol Urine pH Urine WBC (Auto) 25.0 H Urine Creatinine Urine Total Protein Fluid Total Protein Vancomycin Trough Rheumatoid Factor Complement C4 Miscellaneous Test Crossmatch 09/09/16 09/09/16 09/10/16 17:33 23:13 05:09 WBC RBC Hgb Hct MCV MCH MCHC RDW Plt Count Lymph % (Auto) [place] % (Auto) Lymph # [place] # Baso # Seg Neutrophils % Seg Neuts % (Manual) Lymphocytes % (Manual) Monocytes % (Manual) Eosinophils % (Manual) Basophils % (Manual) Nucleated RBC % Seg Neutrophils # Seg Neutrophils # Man Lymphocytes # (Manual) Monocytes # (Manual) Eosinophils # (Manual) Basophils # (Manual) PT INR Fibrinogen dRVVT Confirm Interp Factor V Activity POC ABG pH POC ABG pCO2 POC ABG pO2 74 L ABG pO2 ABG HCO3 ABG Base Excess ABG Hemoglobin Oxyhemoglobin Sodium Potassium Chloride Carbon Dioxide BUN Creatinine Glucose POC Glucose 211 H 215 H Lactic Acid Calcium Phosphorus Magnesium Direct Bilirubin AST ALT Alkaline Phosphatase Lactate Dehydrogenase Troponin T C-Reactive Protein Total Protein Albumin Prealbumin Triglycerides Cholesterol LDL Cholesterol Direct HDL Cholesterol Urine pH Urine WBC (Auto) Urine Creatinine Urine Total Protein Fluid Total Protein Vancomycin Trough Rheumatoid Factor Complement C4 Miscellaneous Test Crossmatch 09/10/16 09/10/16 09/10/16 05:17 05:17 11:31 WBC 15.8 H RBC 3.25 L Hgb 7.3 L Hct 22.9 L MCV 71 L MCH 23 L MCHC RDW 18.4 H Plt Count Lymph % (Auto) [place] % (Auto) Lymph # [place] # Baso # Seg Neutrophils % Seg Neuts % (Manual) 91.0 H Lymphocytes % (Manual) 4.0 L Monocytes % (Manual) Eosinophils % (Manual) Basophils % (Manual) Nucleated RBC % Seg Neutrophils # Seg Neutrophils # Man 14.4 H Lymphocytes # (Manual) 0.6 L Monocytes # (Manual) Eosinophils # (Manual) Basophils # (Manual) PT INR Fibrinogen dRVVT Confirm Interp Factor V Activity POC ABG pH POC ABG pCO2 POC ABG pO2 ABG pO2 ABG HCO3 ABG Base Excess ABG Hemoglobin Oxyhemoglobin Sodium Potassium Chloride Carbon Dioxide 21 L BUN 93 H Creatinine 2.9 H Glucose 146 H POC Glucose 188 H Lactic Acid Calcium 8.1 L Phosphorus Magnesium Direct Bilirubin AST ALT Alkaline Phosphatase Lactate Dehydrogenase Troponin T C-Reactive Protein Total Protein Albumin Prealbumin Triglycerides Cholesterol LDL Cholesterol Direct HDL Cholesterol Urine pH Urine WBC (Auto) Urine Creatinine Urine Total Protein Fluid Total Protein Vancomycin Trough Rheumatoid Factor Complement C4 Miscellaneous Test Crossmatch 09/10/16 09/10/16 09/10/16 13:17 17:20 23:32 WBC RBC Hgb Hct MCV MCH MCHC RDW Plt Count Lymph % (Auto) [place] % (Auto) Lymph # [place] # Baso # Seg Neutrophils % Seg Neuts % (Manual) Lymphocytes % (Manual) Monocytes % (Manual) Eosinophils % (Manual) Basophils % (Manual) Nucleated RBC % Seg Neutrophils # Seg Neutrophils # Man Lymphocytes # (Manual) Monocytes # (Manual) Eosinophils # (Manual) Basophils # (Manual) PT INR Fibrinogen dRVVT Confirm Interp Factor V Activity POC ABG pH POC ABG pCO2 POC ABG pO2 ABG pO2 ABG HCO3 ABG Base Excess ABG Hemoglobin Oxyhemoglobin Sodium Potassium Chloride Carbon Dioxide BUN Creatinine Glucose POC Glucose 199 H 186 H Lactic Acid Calcium Phosphorus Magnesium Direct Bilirubin AST ALT Alkaline Phosphatase Lactate Dehydrogenase Troponin T C-Reactive Protein Total Protein Albumin Prealbumin Triglycerides Cholesterol LDL Cholesterol Direct HDL Cholesterol Urine pH Urine WBC (Auto) Urine Creatinine Urine Total Protein Fluid Total Protein Vancomycin Trough Rheumatoid Factor Complement C4 Miscellaneous Test Crossmatch See Detail 09/11/16 09/11/16 09/11/16 05:10 05:10 05:17 WBC 28.4 H RBC Hgb 9.2 L Hct 29.3 L D MCV 73 L MCH 23 L MCHC RDW 18.9 H Plt Count 452 H Lymph % (Auto) [place] % (Auto) Lymph # [place] # Baso # Seg Neutrophils % Seg Neuts % (Manual) 89.5 H Lymphocytes % (Manual) 2.0 L Monocytes % (Manual) Eosinophils % (Manual) Basophils % (Manual) Nucleated RBC % Seg Neutrophils # Seg Neutrophils # Man 25.4 H Lymphocytes # (Manual) 0.6 L Monocytes # (Manual) 1.3 H Eosinophils # (Manual) Basophils # (Manual) PT INR Fibrinogen dRVVT Confirm Interp Factor V Activity POC ABG pH POC ABG pCO2 POC ABG pO2 ABG pO2 ABG HCO3 ABG Base Excess ABG Hemoglobin Oxyhemoglobin Sodium 136 L Potassium Chloride Carbon Dioxide 18 L BUN 107 H Creatinine 2.6 H Glucose 187 H POC Glucose 230 H Lactic Acid Calcium 8.3 L Phosphorus Magnesium Direct Bilirubin AST ALT Alkaline Phosphatase Lactate Dehydrogenase Troponin T C-Reactive Protein Total Protein Albumin Prealbumin Triglycerides Cholesterol LDL Cholesterol Direct HDL Cholesterol Urine pH Urine WBC (Auto) Urine Creatinine Urine Total Protein Fluid Total Protein Vancomycin Trough Rheumatoid Factor Complement C4 Miscellaneous Test Crossmatch 09/11/16 09/11/16 09/11/16 05:55 12:02 17:32 WBC RBC Hgb Hct MCV MCH MCHC RDW Plt Count Lymph % (Auto) [place] % (Auto) Lymph # [place] # Baso # Seg Neutrophils % Seg Neuts % (Manual) Lymphocytes % (Manual) Monocytes % (Manual) Eosinophils % (Manual) Basophils % (Manual) Nucleated RBC % Seg Neutrophils # Seg Neutrophils # Man Lymphocytes # (Manual) Monocytes # (Manual) Eosinophils # (Manual) Basophils # (Manual) PT INR Fibrinogen dRVVT Confirm Interp Factor V Activity POC ABG pH POC ABG pCO2 33.8 L POC ABG pO2 ABG pO2 ABG HCO3 ABG Base Excess ABG Hemoglobin Oxyhemoglobin Sodium Potassium Chloride Carbon Dioxide BUN Creatinine Glucose POC Glucose 191 H 239 H Lactic Acid Calcium Phosphorus Magnesium Direct Bilirubin AST ALT Alkaline Phosphatase Lactate Dehydrogenase Troponin T C-Reactive Protein Total Protein Albumin Prealbumin Triglycerides Cholesterol LDL Cholesterol Direct HDL Cholesterol Urine pH Urine WBC (Auto) Urine Creatinine Urine Total Protein Fluid Total Protein Vancomycin Trough Rheumatoid Factor Complement C4 Miscellaneous Test Crossmatch 09/11/16 09/12/16 09/12/16 23:52 05:09 05:32 WBC RBC Hgb Hct MCV MCH MCHC RDW Plt Count Lymph % (Auto) [place] % (Auto) Lymph # [place] # Baso # Seg Neutrophils % Seg Neuts % (Manual) Lymphocytes % (Manual) Monocytes % (Manual) Eosinophils % (Manual) Basophils % (Manual) Nucleated RBC % Seg Neutrophils # Seg Neutrophils # Man Lymphocytes # (Manual) Monocytes # (Manual) Eosinophils # (Manual) Basophils # (Manual) PT INR Fibrinogen dRVVT Confirm Interp Factor V Activity POC ABG pH POC ABG pCO2 34.6 L POC ABG pO2 ABG pO2 ABG HCO3 ABG Base Excess ABG Hemoglobin Oxyhemoglobin Sodium Potassium Chloride Carbon Dioxide BUN Creatinine Glucose POC Glucose 265 H 184 H Lactic Acid Calcium Phosphorus Magnesium Direct Bilirubin AST ALT Alkaline Phosphatase Lactate Dehydrogenase Troponin T C-Reactive Protein Total Protein Albumin Prealbumin Triglycerides Cholesterol LDL Cholesterol Direct HDL Cholesterol Urine pH Urine WBC (Auto) Urine Creatinine Urine Total Protein Fluid Total Protein Vancomycin Trough Rheumatoid Factor Complement C4 Miscellaneous Test Crossmatch 09/12/16 09/12/16 09/12/16 06:45 06:45 07:22 WBC 31.7 H RBC 3.54 L Hgb 8.3 L Hct 25.9 L MCV 73 L MCH 23 L MCHC RDW 18.9 H Plt Count Lymph % (Auto) [place] % (Auto) Lymph # [place] # Baso # Seg Neutrophils % Seg Neuts % (Manual) 88.5 H Lymphocytes % (Manual) 4.5 L Monocytes % (Manual) Eosinophils % (Manual) Basophils % (Manual) Nucleated RBC % Seg Neutrophils # Seg Neutrophils # Man 28.1 H Lymphocytes # (Manual) Monocytes # (Manual) 1.0 H Eosinophils # (Manual) Basophils # (Manual) PT INR Fibrinogen dRVVT Confirm Interp Factor V Activity POC ABG pH POC ABG pCO2 POC ABG pO2 ABG pO2 ABG HCO3 ABG Base Excess ABG Hemoglobin Oxyhemoglobin Sodium Potassium Chloride Carbon Dioxide 20 L BUN 115 H Creatinine 2.7 H Glucose 165 H POC Glucose Lactic Acid Calcium 8.0 L Phosphorus Magnesium Direct Bilirubin AST ALT Alkaline Phosphatase Lactate Dehydrogenase Troponin T C-Reactive Protein Total Protein Albumin Prealbumin Triglycerides 217 H Cholesterol LDL Cholesterol Direct HDL Cholesterol Urine pH Urine WBC (Auto) Urine Creatinine Urine Total Protein Fluid Total Protein Vancomycin Trough Rheumatoid Factor Complement C4 Miscellaneous Test Crossmatch 09/12/16 09/12/16 09/12/16 07:22 09:59 12:21 WBC RBC Hgb Hct MCV MCH MCHC RDW Plt Count Lymph % (Auto) [place] % (Auto) Lymph # [place] # Baso # Seg Neutrophils % Seg Neuts % (Manual) Lymphocytes % (Manual) Monocytes % (Manual) Eosinophils % (Manual) Basophils % (Manual) Nucleated RBC % Seg Neutrophils # Seg Neutrophils # Man Lymphocytes # (Manual) Monocytes # (Manual) Eosinophils # (Manual) Basophils # (Manual) PT INR Fibrinogen dRVVT Confirm Interp Positive H Factor V Activity POC ABG pH POC ABG pCO2 POC ABG pO2 ABG pO2 ABG HCO3 ABG Base Excess ABG Hemoglobin Oxyhemoglobin Sodium Potassium Chloride Carbon Dioxide BUN Creatinine Glucose POC Glucose 224 H Lactic Acid Calcium Phosphorus Magnesium Direct Bilirubin AST ALT Alkaline Phosphatase Lactate Dehydrogenase Troponin T C-Reactive Protein 1.70 H Total Protein Albumin Prealbumin Triglycerides Cholesterol LDL Cholesterol Direct HDL Cholesterol Urine pH Urine WBC (Auto) Urine Creatinine Urine Total Protein Fluid Total Protein Vancomycin Trough Rheumatoid Factor Complement C4 Miscellaneous Test Crossmatch 09/12/16 09/12/16 09/13/16 16:51 23:28 04:00 WBC 45.0 H* RBC Hgb 9.4 L Hct MCV 75 L MCH 23 L MCHC RDW 19.0 H Plt Count 470 H Lymph % (Auto) [place] % (Auto) Lymph # [place] # Baso # Seg Neutrophils % Seg Neuts % (Manual) 89.0 H Lymphocytes % (Manual) 5.0 L Monocytes % (Manual) Eosinophils % (Manual) Basophils % (Manual) Nucleated RBC % Seg Neutrophils # Seg Neutrophils # Man 40.1 H Lymphocytes # (Manual) Monocytes # (Manual) Eosinophils # (Manual) Basophils # (Manual) PT INR Fibrinogen dRVVT Confirm Interp Factor V Activity POC ABG pH POC ABG pCO2 POC ABG pO2 ABG pO2 ABG HCO3 ABG Base Excess ABG Hemoglobin Oxyhemoglobin Sodium Potassium Chloride Carbon Dioxide BUN Creatinine Glucose POC Glucose 169 H 150 H Lactic Acid Calcium Phosphorus Magnesium Direct Bilirubin AST ALT Alkaline Phosphatase Lactate Dehydrogenase Troponin T C-Reactive Protein Total Protein Albumin Prealbumin Triglycerides Cholesterol LDL Cholesterol Direct HDL Cholesterol Urine pH Urine WBC (Auto) Urine Creatinine Urine Total Protein Fluid Total Protein Vancomycin Trough Rheumatoid Factor Complement C4 Miscellaneous Test Crossmatch 09/13/16 09/13/16 09/13/16 04:00 11:26 17:31 WBC RBC Hgb Hct MCV MCH MCHC RDW Plt Count Lymph % (Auto) [place] % (Auto) Lymph # [place] # Baso # Seg Neutrophils % Seg Neuts % (Manual) Lymphocytes % (Manual) Monocytes % (Manual) Eosinophils % (Manual) Basophils % (Manual) Nucleated RBC % Seg Neutrophils # Seg Neutrophils # Man Lymphocytes # (Manual) Monocytes # (Manual) Eosinophils # (Manual) Basophils # (Manual) PT INR Fibrinogen dRVVT Confirm Interp Factor V Activity POC ABG pH POC ABG pCO2 POC ABG pO2 ABG pO2 ABG HCO3 ABG Base Excess ABG Hemoglobin Oxyhemoglobin Sodium Potassium Chloride Carbon Dioxide 20 L BUN 116 H Creatinine 3.0 H Glucose 172 H POC Glucose 140 H 183 H Lactic Acid Calcium Phosphorus Magnesium Direct Bilirubin AST ALT Alkaline Phosphatase Lactate Dehydrogenase Troponin T C-Reactive Protein Total Protein 6.2 L Albumin 2.9 L Prealbumin Triglycerides Cholesterol LDL Cholesterol Direct HDL Cholesterol Urine pH Urine WBC (Auto) Urine Creatinine Urine Total Protein Fluid Total Protein Vancomycin Trough Rheumatoid Factor Complement C4 Miscellaneous Test Crossmatch 09/13/16 09/14/16 09/14/16 23:23 04:06 04:07 WBC 29.4 H RBC Hgb 8.9 L Hct 27.3 L MCV 75 L MCH 24 L MCHC RDW 19.1 H Plt Count Lymph % (Auto) [place] % (Auto) Lymph # [place] # Baso # Seg Neutrophils % Seg Neuts % (Manual) 84.0 H Lymphocytes % (Manual) 6.0 L Monocytes % (Manual) 9.0 H Eosinophils % (Manual) Basophils % (Manual) Nucleated RBC % Seg Neutrophils # Seg Neutrophils # Man 24.7 H Lymphocytes # (Manual) Monocytes # (Manual) 2.6 H Eosinophils # (Manual) Basophils # (Manual) PT INR Fibrinogen dRVVT Confirm Interp Factor V Activity POC ABG pH 7.342 L POC ABG pCO2 POC ABG pO2 116 H ABG pO2 ABG HCO3 ABG Base Excess ABG Hemoglobin Oxyhemoglobin Sodium Potassium Chloride Carbon Dioxide BUN Creatinine Glucose POC Glucose 154 H Lactic Acid Calcium Phosphorus Magnesium Direct Bilirubin AST ALT Alkaline Phosphatase Lactate Dehydrogenase Troponin T C-Reactive Protein Total Protein Albumin Prealbumin Triglycerides Cholesterol LDL Cholesterol Direct HDL Cholesterol Urine pH Urine WBC (Auto) Urine Creatinine Urine Total Protein Fluid Total Protein Vancomycin Trough Rheumatoid Factor Complement C4 Miscellaneous Test Crossmatch 09/14/16 09/14/16 09/14/16 04:07 05:29 12:19 WBC RBC Hgb Hct MCV MCH MCHC RDW Plt Count Lymph % (Auto) [place] % (Auto) Lymph # [place] # Baso # Seg Neutrophils % Seg Neuts % (Manual) Lymphocytes % (Manual) Monocytes % (Manual) Eosinophils % (Manual) Basophils % (Manual) Nucleated RBC % Seg Neutrophils # Seg Neutrophils # Man Lymphocytes # (Manual) Monocytes # (Manual) Eosinophils # (Manual) Basophils # (Manual) PT INR Fibrinogen dRVVT Confirm Interp Factor V Activity POC ABG pH POC ABG pCO2 POC ABG pO2 ABG pO2 ABG HCO3 ABG Base Excess ABG Hemoglobin Oxyhemoglobin Sodium 136 L Potassium Chloride Carbon Dioxide 18 L BUN 121 H Creatinine 2.8 H Glucose 214 H POC Glucose 239 H 181 H Lactic Acid Calcium Phosphorus Magnesium Direct Bilirubin AST ALT Alkaline Phosphatase Lactate Dehydrogenase Troponin T C-Reactive Protein Total Protein Albumin Prealbumin Triglycerides Cholesterol LDL Cholesterol Direct HDL Cholesterol Urine pH Urine WBC (Auto) Urine Creatinine Urine Total Protein Fluid Total Protein Vancomycin Trough Rheumatoid Factor Complement C4 Miscellaneous Test Crossmatch 09/14/16 09/14/16 09/15/16 18:12 23:37 05:00 WBC 26.1 H RBC 3.05 L Hgb 7.2 L Hct 22.9 L MCV 75 L MCH 24 L MCHC RDW 19.0 H Plt Count Lymph % (Auto) [place] % (Auto) Lymph # [place] # Baso # Seg Neutrophils % Seg Neuts % (Manual) Lymphocytes % (Manual) Monocytes % (Manual) Eosinophils % (Manual) Basophils % (Manual) Nucleated RBC % Seg Neutrophils # Seg Neutrophils # Man Lymphocytes # (Manual) Monocytes # (Manual) Eosinophils # (Manual) Basophils # (Manual) PT INR Fibrinogen dRVVT Confirm Interp Factor V Activity POC ABG pH POC ABG pCO2 POC ABG pO2 ABG pO2 ABG HCO3 ABG Base Excess ABG Hemoglobin Oxyhemoglobin Sodium Potassium Chloride Carbon Dioxide BUN Creatinine Glucose POC Glucose 266 H 154 H Lactic Acid Calcium Phosphorus Magnesium Direct Bilirubin AST ALT Alkaline Phosphatase Lactate Dehydrogenase Troponin T C-Reactive Protein Total Protein Albumin Prealbumin Triglycerides Cholesterol LDL Cholesterol Direct HDL Cholesterol Urine pH Urine WBC (Auto) Urine Creatinine Urine Total Protein Fluid Total Protein Vancomycin Trough Rheumatoid Factor Complement C4 Miscellaneous Test Crossmatch 09/15/16 09/15/16 09/15/16 05:00 05:17 12:45 WBC RBC Hgb Hct MCV MCH MCHC RDW Plt Count Lymph % (Auto) [place] % (Auto) Lymph # [place] # Baso # Seg Neutrophils % Seg Neuts % (Manual) Lymphocytes % (Manual) Monocytes % (Manual) Eosinophils % (Manual) Basophils % (Manual) Nucleated RBC % Seg Neutrophils # Seg Neutrophils # Man Lymphocytes # (Manual) Monocytes # (Manual) Eosinophils # (Manual) Basophils # (Manual) PT INR Fibrinogen dRVVT Confirm Interp Factor V Activity POC ABG pH POC ABG pCO2 POC ABG pO2 ABG pO2 ABG HCO3 ABG Base Excess ABG Hemoglobin Oxyhemoglobin Sodium Potassium 5.2 H Chloride Carbon Dioxide 18 L BUN 139 H Creatinine 3.7 H Glucose 227 H POC Glucose 226 H 244 H Lactic Acid Calcium 8.3 L Phosphorus Magnesium Direct Bilirubin AST ALT Alkaline Phosphatase Lactate Dehydrogenase Troponin T C-Reactive Protein Total Protein Albumin Prealbumin Triglycerides Cholesterol LDL Cholesterol Direct HDL Cholesterol Urine pH Urine WBC (Auto) Urine Creatinine Urine Total Protein Fluid Total Protein Vancomycin Trough Rheumatoid Factor Complement C4 Miscellaneous Test Crossmatch 09/15/16 09/15/16 09/15/16 14:32 17:33 23:35 WBC RBC Hgb Hct MCV MCH MCHC RDW Plt Count Lymph % (Auto) [place] % (Auto) Lymph # [place] # Baso # Seg Neutrophils % Seg Neuts % (Manual) Lymphocytes % (Manual) Monocytes % (Manual) Eosinophils % (Manual) Basophils % (Manual) Nucleated RBC % Seg Neutrophils # Seg Neutrophils # Man Lymphocytes # (Manual) Monocytes # (Manual) Eosinophils # (Manual) Basophils # (Manual) PT INR Fibrinogen dRVVT Confirm Interp Factor V Activity POC ABG pH POC ABG pCO2 27.7 L POC ABG pO2 120 H ABG pO2 ABG HCO3 ABG Base Excess ABG Hemoglobin Oxyhemoglobin Sodium Potassium Chloride Carbon Dioxide BUN Creatinine Glucose POC Glucose 232 H 167 H Lactic Acid Calcium Phosphorus Magnesium Direct Bilirubin AST ALT Alkaline Phosphatase Lactate Dehydrogenase Troponin T C-Reactive Protein Total Protein Albumin Prealbumin Triglycerides Cholesterol LDL Cholesterol Direct HDL Cholesterol Urine pH Urine WBC (Auto) Urine Creatinine Urine Total Protein Fluid Total Protein Vancomycin Trough Rheumatoid Factor Complement C4 Miscellaneous Test Crossmatch 09/16/16 09/16/16 09/16/16 03:58 10:27 10:27 WBC 19.0 H RBC 2.77 L Hgb 6.5 L Hct 20.9 L MCV 76 L MCH 23 L MCHC RDW 19.3 H Plt Count Lymph % (Auto) 11.0 L [place] % (Auto) Lymph # [place] # 1.1 H Baso # Seg Neutrophils % 82.5 H Seg Neuts % (Manual) Lymphocytes % (Manual) Monocytes % (Manual) Eosinophils % (Manual) Basophils % (Manual) Nucleated RBC % Seg Neutrophils # 15.7 H Seg Neutrophils # Man Lymphocytes # (Manual) Monocytes # (Manual) Eosinophils # (Manual) Basophils # (Manual) PT INR Fibrinogen dRVVT Confirm Interp Factor V Activity POC ABG pH POC ABG pCO2 POC ABG pO2 ABG pO2 ABG HCO3 ABG Base Excess ABG Hemoglobin Oxyhemoglobin Sodium Potassium Chloride 109.3 H Carbon Dioxide 18 L BUN 139 H Creatinine 4.1 H Glucose 144 H POC Glucose 146 H Lactic Acid Calcium 8.1 L Phosphorus Magnesium Direct Bilirubin AST ALT Alkaline Phosphatase Lactate Dehydrogenase Troponin T C-Reactive Protein Total Protein Albumin Prealbumin Triglycerides Cholesterol LDL Cholesterol Direct HDL Cholesterol Urine pH Urine WBC (Auto) Urine Creatinine Urine Total Protein Fluid Total Protein Vancomycin Trough Rheumatoid Factor Complement C4 Miscellaneous Test Crossmatch 09/16/16 09/16/16 09/16/16 12:04 12:10 13:55 WBC RBC Hgb Hct MCV MCH MCHC RDW Plt Count Lymph % (Auto) [place] % (Auto) Lymph # [place] # Baso # Seg Neutrophils % Seg Neuts % (Manual) Lymphocytes % (Manual) Monocytes % (Manual) Eosinophils % (Manual) Basophils % (Manual) Nucleated RBC % Seg Neutrophils # Seg Neutrophils # Man Lymphocytes # (Manual) Monocytes # (Manual) Eosinophils # (Manual) Basophils # (Manual) PT INR Fibrinogen dRVVT Confirm Interp Factor V Activity POC ABG pH POC ABG pCO2 32.9 L POC ABG pO2 ABG pO2 ABG HCO3 ABG Base Excess ABG Hemoglobin Oxyhemoglobin Sodium Potassium Chloride Carbon Dioxide BUN Creatinine Glucose POC Glucose 185 H Lactic Acid Calcium Phosphorus Magnesium Direct Bilirubin AST ALT Alkaline Phosphatase Lactate Dehydrogenase Troponin T C-Reactive Protein Total Protein Albumin Prealbumin Triglycerides Cholesterol LDL Cholesterol Direct HDL Cholesterol Urine pH Urine WBC (Auto) Urine Creatinine Urine Total Protein Fluid Total Protein Vancomycin Trough Rheumatoid Factor Complement C4 Miscellaneous Test Crossmatch See Detail 09/16/16 09/16/16 09/16/16 17:55 19:19 23:48 WBC RBC Hgb Hct MCV MCH MCHC RDW Plt Count Lymph % (Auto) [place] % (Auto) Lymph # [place] # Baso # Seg Neutrophils % Seg Neuts % (Manual) Lymphocytes % (Manual) Monocytes % (Manual) Eosinophils % (Manual) Basophils % (Manual) Nucleated RBC % Seg Neutrophils # Seg Neutrophils # Man Lymphocytes # (Manual) Monocytes # (Manual) Eosinophils # (Manual) Basophils # (Manual) PT INR Fibrinogen dRVVT Confirm Interp Factor V Activity POC ABG pH POC ABG pCO2 POC ABG pO2 ABG pO2 ABG HCO3 ABG Base Excess ABG Hemoglobin Oxyhemoglobin Sodium Potassium Chloride Carbon Dioxide BUN Creatinine Glucose POC Glucose 222 H 107 H Lactic Acid Calcium Phosphorus Magnesium Direct Bilirubin AST ALT Alkaline Phosphatase Lactate Dehydrogenase Troponin T C-Reactive Protein Total Protein Albumin Prealbumin Triglycerides Cholesterol LDL Cholesterol Direct HDL Cholesterol Urine pH Urine WBC (Auto) Urine Creatinine 47.4 H Urine Total Protein 16 H Fluid Total Protein Vancomycin Trough Rheumatoid Factor Complement C4 Miscellaneous Test Crossmatch 09/17/16 09/17/16 09/17/16 03:45 03:45 04:55 WBC 19.6 H RBC 3.41 L Hgb 8.5 L Hct 26.7 L MCV 78 L MCH 25 L MCHC RDW 19.9 H Plt Count Lymph % (Auto) 9.3 L [place] % (Auto) Lymph # [place] # 1.2 H Baso # Seg Neutrophils % 83.9 H Seg Neuts % (Manual) Lymphocytes % (Manual) Monocytes % (Manual) Eosinophils % (Manual) Basophils % (Manual) Nucleated RBC % Seg Neutrophils # 16.4 H Seg Neutrophils # Man Lymphocytes # (Manual) Monocytes # (Manual) Eosinophils # (Manual) Basophils # (Manual) PT INR Fibrinogen dRVVT Confirm Interp Factor V Activity POC ABG pH POC ABG pCO2 POC ABG pO2 ABG pO2 ABG HCO3 ABG Base Excess ABG Hemoglobin Oxyhemoglobin Sodium 146 H Potassium 5.1 H Chloride 110.9 H Carbon Dioxide 16 L BUN 146 H Creatinine 4.0 H Glucose 108 H POC Glucose 133 H Lactic Acid Calcium Phosphorus Magnesium 3.00 H Direct Bilirubin AST ALT Alkaline Phosphatase Lactate Dehydrogenase Troponin T C-Reactive Protein Total Protein Albumin Prealbumin Triglycerides Cholesterol LDL Cholesterol Direct HDL Cholesterol Urine pH Urine WBC (Auto) Urine Creatinine Urine Total Protein Fluid Total Protein Vancomycin Trough Rheumatoid Factor Complement C4 Miscellaneous Test Crossmatch 09/17/16 09/17/16 09/17/16 11:15 17:33 23:47 WBC RBC Hgb Hct MCV MCH MCHC RDW Plt Count Lymph % (Auto) [place] % (Auto) Lymph # [place] # Baso # Seg Neutrophils % Seg Neuts % (Manual) Lymphocytes % (Manual) Monocytes % (Manual) Eosinophils % (Manual) Basophils % (Manual) Nucleated RBC % Seg Neutrophils # Seg Neutrophils # Man Lymphocytes # (Manual) Monocytes # (Manual) Eosinophils # (Manual) Basophils # (Manual) PT INR Fibrinogen dRVVT Confirm Interp Factor V Activity POC ABG pH POC ABG pCO2 POC ABG pO2 ABG pO2 ABG HCO3 ABG Base Excess ABG Hemoglobin Oxyhemoglobin Sodium Potassium Chloride Carbon Dioxide BUN Creatinine Glucose POC Glucose 176 H 246 H 148 H Lactic Acid Calcium Phosphorus Magnesium Direct Bilirubin AST ALT Alkaline Phosphatase Lactate Dehydrogenase Troponin T C-Reactive Protein Total Protein Albumin Prealbumin Triglycerides Cholesterol LDL Cholesterol Direct HDL Cholesterol Urine pH Urine WBC (Auto) Urine Creatinine Urine Total Protein Fluid Total Protein Vancomycin Trough Rheumatoid Factor Complement C4 Miscellaneous Test Crossmatch 09/18/16 09/18/16 09/18/16 05:33 08:31 08:31 WBC 18.0 H RBC 3.17 L Hgb 9.0 L Hct 25.7 L MCV MCH MCHC 35 H RDW 20.4 H Plt Count Lymph % (Auto) [place] % (Auto) Lymph # [place] # Baso # Seg Neutrophils % Seg Neuts % (Manual) Lymphocytes % (Manual) Monocytes % (Manual) Eosinophils % (Manual) Basophils % (Manual) Nucleated RBC % Seg Neutrophils # Seg Neutrophils # Man Lymphocytes # (Manual) Monocytes # (Manual) Eosinophils # (Manual) Basophils # (Manual) PT INR Fibrinogen dRVVT Confirm Interp Factor V Activity POC ABG pH POC ABG pCO2 POC ABG pO2 ABG pO2 ABG HCO3 ABG Base Excess ABG Hemoglobin Oxyhemoglobin Sodium Potassium Chloride Carbon Dioxide 15 L BUN 124 H Creatinine 3.8 H Glucose POC Glucose 120 H Lactic Acid Calcium 8.1 L Phosphorus Magnesium Direct Bilirubin AST ALT Alkaline Phosphatase Lactate Dehydrogenase Troponin T C-Reactive Protein Total Protein Albumin Prealbumin Triglycerides Cholesterol LDL Cholesterol Direct HDL Cholesterol Urine pH Urine WBC (Auto) Urine Creatinine Urine Total Protein Fluid Total Protein Vancomycin Trough Rheumatoid Factor Complement C4 Miscellaneous Test Crossmatch 09/18/16 09/18/16 09/18/16 12:03 15:34 17:50 WBC RBC Hgb Hct MCV MCH MCHC RDW Plt Count Lymph % (Auto) [place] % (Auto) Lymph # [place] # Baso # Seg Neutrophils % Seg Neuts % (Manual) Lymphocytes % (Manual) Monocytes % (Manual) Eosinophils % (Manual) Basophils % (Manual) Nucleated RBC % Seg Neutrophils # Seg Neutrophils # Man Lymphocytes # (Manual) Monocytes # (Manual) Eosinophils # (Manual) Basophils # (Manual) PT INR Fibrinogen dRVVT Confirm Interp Factor V Activity POC ABG pH POC ABG pCO2 25.7 L POC ABG pO2 66 L ABG pO2 ABG HCO3 ABG Base Excess ABG Hemoglobin Oxyhemoglobin Sodium Potassium Chloride Carbon Dioxide BUN Creatinine Glucose POC Glucose 156 H 220 H Lactic Acid Calcium Phosphorus Magnesium Direct Bilirubin AST ALT Alkaline Phosphatase Lactate Dehydrogenase Troponin T C-Reactive Protein Total Protein Albumin Prealbumin Triglycerides Cholesterol LDL Cholesterol Direct HDL Cholesterol Urine pH Urine WBC (Auto) Urine Creatinine Urine Total Protein Fluid Total Protein Vancomycin Trough Rheumatoid Factor Complement C4 Miscellaneous Test Crossmatch 09/19/16 09/19/16 09/19/16 06:21 09:50 09:50 WBC 17.1 H RBC 3.49 L Hgb 9.0 L Hct 28.1 L MCV MCH 26 L MCHC RDW 20.8 H Plt Count Lymph % (Auto) 11.5 L [place] % (Auto) 7.5 H Lymph # [place] # 1.3 H Baso # Seg Neutrophils % 79.8 H Seg Neuts % (Manual) Lymphocytes % (Manual) Monocytes % (Manual) Eosinophils % (Manual) Basophils % (Manual) Nucleated RBC % Seg Neutrophils # 13.7 H Seg Neutrophils # Man Lymphocytes # (Manual) Monocytes # (Manual) Eosinophils # (Manual) Basophils # (Manual) PT INR Fibrinogen dRVVT Confirm Interp Factor V Activity POC ABG pH POC ABG pCO2 POC ABG pO2 ABG pO2 ABG HCO3 ABG Base Excess ABG Hemoglobin Oxyhemoglobin Sodium Potassium Chloride 108.6 H Carbon Dioxide 15 L BUN 125 H Creatinine 4.1 H Glucose 124 H POC Glucose 119 H Lactic Acid Calcium Phosphorus Magnesium Direct Bilirubin AST ALT Alkaline Phosphatase Lactate Dehydrogenase Troponin T C-Reactive Protein Total Protein Albumin Prealbumin Triglycerides Cholesterol LDL Cholesterol Direct HDL Cholesterol Urine pH Urine WBC (Auto) Urine Creatinine Urine Total Protein Fluid Total Protein Vancomycin Trough Rheumatoid Factor Complement C4 Miscellaneous Test Crossmatch 09/19/16 09/19/16 09/19/16 11:25 17:53 23:36 WBC RBC Hgb Hct MCV MCH MCHC RDW Plt Count Lymph % (Auto) [place] % (Auto) Lymph # [place] # Baso # Seg Neutrophils % Seg Neuts % (Manual) Lymphocytes % (Manual) Monocytes % (Manual) Eosinophils % (Manual) Basophils % (Manual) Nucleated RBC % Seg Neutrophils # Seg Neutrophils # Man Lymphocytes # (Manual) Monocytes # (Manual) Eosinophils # (Manual) Basophils # (Manual) PT INR Fibrinogen dRVVT Confirm Interp Factor V Activity POC ABG pH POC ABG pCO2 POC ABG pO2 ABG pO2 ABG HCO3 ABG Base Excess ABG Hemoglobin Oxyhemoglobin Sodium Potassium Chloride Carbon Dioxide BUN Creatinine Glucose POC Glucose 160 H 245 H 121 H Lactic Acid Calcium Phosphorus Magnesium Direct Bilirubin AST ALT Alkaline Phosphatase Lactate Dehydrogenase Troponin T C-Reactive Protein Total Protein Albumin Prealbumin Triglycerides Cholesterol LDL Cholesterol Direct HDL Cholesterol Urine pH Urine WBC (Auto) Urine Creatinine Urine Total Protein Fluid Total Protein Vancomycin Trough Rheumatoid Factor Complement C4 Miscellaneous Test Crossmatch 09/20/16 09/20/16 09/20/16 04:10 04:10 04:10 WBC 17.0 H RBC 3.21 L Hgb 8.2 L Hct 25.5 L MCV MCH 26 L MCHC RDW 20.9 H Plt Count Lymph % (Auto) [place] % (Auto) Lymph # [place] # Baso # Seg Neutrophils % Seg Neuts % (Manual) Lymphocytes % (Manual) Monocytes % (Manual) Eosinophils % (Manual) Basophils % (Manual) Nucleated RBC % Seg Neutrophils # Seg Neutrophils # Man Lymphocytes # (Manual) Monocytes # (Manual) Eosinophils # (Manual) Basophils # (Manual) PT INR Fibrinogen dRVVT Confirm Interp Factor V Activity POC ABG pH POC ABG pCO2 POC ABG pO2 ABG pO2 ABG HCO3 ABG Base Excess ABG Hemoglobin Oxyhemoglobin Sodium Potassium Chloride 111.0 H Carbon Dioxide 16 L BUN 129 H Creatinine 3.7 H Glucose 115 H POC Glucose Lactic Acid Calcium 8.2 L Phosphorus Magnesium Direct Bilirubin AST ALT Alkaline Phosphatase Lactate Dehydrogenase Troponin T C-Reactive Protein Total Protein Albumin Prealbumin Triglycerides 243 H Cholesterol LDL Cholesterol Direct HDL Cholesterol Urine pH Urine WBC (Auto) Urine Creatinine Urine Total Protein Fluid Total Protein Vancomycin Trough Rheumatoid Factor Complement C4 Miscellaneous Test Crossmatch 09/20/16 09/20/16 09/20/16 05:40 11:52 16:50 WBC RBC Hgb Hct MCV MCH MCHC RDW Plt Count Lymph % (Auto) [place] % (Auto) Lymph # [place] # Baso # Seg Neutrophils % Seg Neuts % (Manual) Lymphocytes % (Manual) Monocytes % (Manual) Eosinophils % (Manual) Basophils % (Manual) Nucleated RBC % Seg Neutrophils # Seg Neutrophils # Man Lymphocytes # (Manual) Monocytes # (Manual) Eosinophils # (Manual) Basophils # (Manual) PT INR Fibrinogen dRVVT Confirm Interp Factor V Activity POC ABG pH POC ABG pCO2 POC ABG pO2 ABG pO2 ABG HCO3 ABG Base Excess ABG Hemoglobin Oxyhemoglobin Sodium Potassium Chloride Carbon Dioxide BUN Creatinine Glucose POC Glucose 131 H 183 H 236 H Lactic Acid Calcium Phosphorus Magnesium Direct Bilirubin AST ALT Alkaline Phosphatase Lactate Dehydrogenase Troponin T C-Reactive Protein Total Protein Albumin Prealbumin Triglycerides Cholesterol LDL Cholesterol Direct HDL Cholesterol Urine pH Urine WBC (Auto) Urine Creatinine Urine Total Protein Fluid Total Protein Vancomycin Trough Rheumatoid Factor Complement C4 Miscellaneous Test Crossmatch 09/20/16 09/21/16 09/21/16 23:51 03:30 04:44 WBC RBC Hgb Hct MCV MCH MCHC RDW Plt Count Lymph % (Auto) [place] % (Auto) Lymph # [place] # Baso # Seg Neutrophils % Seg Neuts % (Manual) Lymphocytes % (Manual) Monocytes % (Manual) Eosinophils % (Manual) Basophils % (Manual) Nucleated RBC % Seg Neutrophils # Seg Neutrophils # Man Lymphocytes # (Manual) Monocytes # (Manual) Eosinophils # (Manual) Basophils # (Manual) PT INR Fibrinogen dRVVT Confirm Interp Factor V Activity POC ABG pH POC ABG pCO2 POC ABG pO2 ABG pO2 ABG HCO3 ABG Base Excess ABG Hemoglobin Oxyhemoglobin Sodium Potassium Chloride Carbon Dioxide BUN Creatinine Glucose POC Glucose 114 H 141 H Lactic Acid Calcium Phosphorus Magnesium 2.70 H Direct Bilirubin AST ALT Alkaline Phosphatase Lactate Dehydrogenase Troponin T C-Reactive Protein Total Protein Albumin Prealbumin Triglycerides Cholesterol LDL Cholesterol Direct HDL Cholesterol Urine pH Urine WBC (Auto) Urine Creatinine Urine Total Protein Fluid Total Protein Vancomycin Trough Rheumatoid Factor Complement C4 Miscellaneous Test Crossmatch 09/21/16 09/21/16 09/21/16 07:45 07:45 10:01 WBC 13.8 H RBC 2.94 L Hgb 7.5 L Hct 23.5 L MCV MCH 26 L MCHC RDW 21.2 H Plt Count Lymph % (Auto) 6.9 L [place] % (Auto) 9.4 H Lymph # 0.9 L [place] # 1.3 H Baso # Seg Neutrophils % 83.2 H Seg Neuts % (Manual) Lymphocytes % (Manual) Monocytes % (Manual) Eosinophils % (Manual) Basophils % (Manual) Nucleated RBC % Seg Neutrophils # 11.5 H Seg Neutrophils # Man Lymphocytes # (Manual) Monocytes # (Manual) Eosinophils # (Manual) Basophils # (Manual) PT INR Fibrinogen dRVVT Confirm Interp Factor V Activity POC ABG pH 7.308 L POC ABG pCO2 31.9 L POC ABG pO2 148 H ABG pO2 ABG HCO3 ABG Base Excess ABG Hemoglobin Oxyhemoglobin Sodium 147 H Potassium Chloride 114.2 H Carbon Dioxide 15 L BUN 120 H Creatinine 3.9 H Glucose 156 H POC Glucose Lactic Acid Calcium 8.2 L Phosphorus Magnesium Direct Bilirubin AST ALT Alkaline Phosphatase Lactate Dehydrogenase Troponin T C-Reactive Protein Total Protein Albumin Prealbumin Triglycerides Cholesterol LDL Cholesterol Direct HDL Cholesterol Urine pH Urine WBC (Auto) Urine Creatinine Urine Total Protein Fluid Total Protein Vancomycin Trough Rheumatoid Factor Complement C4 Miscellaneous Test Crossmatch 09/21/16 09/21/16 09/21/16 12:00 12:03 13:00 WBC RBC Hgb Hct MCV MCH MCHC RDW Plt Count Lymph % (Auto) [place] % (Auto) Lymph # [place] # Baso # Seg Neutrophils % Seg Neuts % (Manual) Lymphocytes % (Manual) Monocytes % (Manual) Eosinophils % (Manual) Basophils % (Manual) Nucleated RBC % Seg Neutrophils # Seg Neutrophils # Man Lymphocytes # (Manual) Monocytes # (Manual) Eosinophils # (Manual) Basophils # (Manual) PT INR Fibrinogen dRVVT Confirm Interp Factor V Activity POC ABG pH POC ABG pCO2 POC ABG pO2 ABG pO2 ABG HCO3 ABG Base Excess ABG Hemoglobin Oxyhemoglobin Sodium Potassium Chloride Carbon Dioxide BUN Creatinine Glucose POC Glucose 163 H Lactic Acid Calcium Phosphorus Magnesium Direct Bilirubin AST ALT Alkaline Phosphatase Lactate Dehydrogenase Troponin T C-Reactive Protein Total Protein Albumin Prealbumin Triglycerides Cholesterol LDL Cholesterol Direct HDL Cholesterol Urine pH Urine WBC (Auto) Urine Creatinine 54.8 H Urine Total Protein Fluid Total Protein Vancomycin Trough 2.3 L Rheumatoid Factor Complement C4 Miscellaneous Test Crossmatch 09/21/16 09/21/16 09/22/16 16:51 23:17 06:27 WBC RBC Hgb Hct MCV MCH MCHC RDW Plt Count Lymph % (Auto) [place] % (Auto) Lymph # [place] # Baso # Seg Neutrophils % Seg Neuts % (Manual) Lymphocytes % (Manual) Monocytes % (Manual) Eosinophils % (Manual) Basophils % (Manual) Nucleated RBC % Seg Neutrophils # Seg Neutrophils # Man Lymphocytes # (Manual) Monocytes # (Manual) Eosinophils # (Manual) Basophils # (Manual) PT INR Fibrinogen dRVVT Confirm Interp Factor V Activity POC ABG pH POC ABG pCO2 POC ABG pO2 ABG pO2 ABG HCO3 ABG Base Excess ABG Hemoglobin Oxyhemoglobin Sodium Potassium Chloride Carbon Dioxide BUN Creatinine Glucose POC Glucose 206 H 114 H 115 H Lactic Acid Calcium Phosphorus Magnesium Direct Bilirubin AST ALT Alkaline Phosphatase Lactate Dehydrogenase Troponin T C-Reactive Protein Total Protein Albumin Prealbumin Triglycerides Cholesterol LDL Cholesterol Direct HDL Cholesterol Urine pH Urine WBC (Auto) Urine Creatinine Urine Total Protein Fluid Total Protein Vancomycin Trough Rheumatoid Factor Complement C4 Miscellaneous Test Crossmatch 09/22/16 09/22/16 09/22/16 07:50 07:50 12:00 WBC 17.8 H RBC 3.04 L Hgb 8.0 L Hct 24.7 L MCV MCH 26 L MCHC RDW 21.6 H Plt Count Lymph % (Auto) [place] % (Auto) Lymph # [place] # Baso # Seg Neutrophils % Seg Neuts % (Manual) Lymphocytes % (Manual) Monocytes % (Manual) Eosinophils % (Manual) Basophils % (Manual) Nucleated RBC % Seg Neutrophils # Seg Neutrophils # Man Lymphocytes # (Manual) Monocytes # (Manual) Eosinophils # (Manual) Basophils # (Manual) PT INR Fibrinogen dRVVT Confirm Interp Factor V Activity POC ABG pH POC ABG pCO2 POC ABG pO2 ABG pO2 ABG HCO3 ABG Base Excess ABG Hemoglobin Oxyhemoglobin Sodium 150 H Potassium Chloride 118.2 H Carbon Dioxide 14 L BUN 111 H Creatinine 3.7 H Glucose 157 H POC Glucose 183 H Lactic Acid Calcium Phosphorus Magnesium Direct Bilirubin AST ALT Alkaline Phosphatase Lactate Dehydrogenase Troponin T C-Reactive Protein Total Protein Albumin Prealbumin Triglycerides Cholesterol LDL Cholesterol Direct HDL Cholesterol Urine pH Urine WBC (Auto) Urine Creatinine Urine Total Protein Fluid Total Protein Vancomycin Trough Rheumatoid Factor Complement C4 Miscellaneous Test Crossmatch 09/22/16 09/22/16 09/23/16 17:29 23:10 05:00 WBC 19.2 H RBC 3.13 L Hgb 8.0 L Hct 25.2 L MCV MCH 26 L MCHC RDW 22.1 H Plt Count Lymph % (Auto) [place] % (Auto) Lymph # [place] # Baso # Seg Neutrophils % Seg Neuts % (Manual) 92.0 H Lymphocytes % (Manual) 3.0 L Monocytes % (Manual) Eosinophils % (Manual) Basophils % (Manual) Nucleated RBC % Seg Neutrophils # Seg Neutrophils # Man 17.7 H Lymphocytes # (Manual) 0.6 L Monocytes # (Manual) Eosinophils # (Manual) Basophils # (Manual) PT INR Fibrinogen dRVVT Confirm Interp Factor V Activity POC ABG pH POC ABG pCO2 POC ABG pO2 ABG pO2 ABG HCO3 ABG Base Excess ABG Hemoglobin Oxyhemoglobin Sodium Potassium Chloride Carbon Dioxide BUN Creatinine Glucose POC Glucose 197 H 169 H Lactic Acid Calcium Phosphorus Magnesium Direct Bilirubin AST ALT Alkaline Phosphatase Lactate Dehydrogenase Troponin T C-Reactive Protein Total Protein Albumin Prealbumin Triglycerides Cholesterol LDL Cholesterol Direct HDL Cholesterol Urine pH Urine WBC (Auto) Urine Creatinine Urine Total Protein Fluid Total Protein Vancomycin Trough Rheumatoid Factor Complement C4 Miscellaneous Test Crossmatch 09/23/16 09/23/16 09/23/16 05:00 05:00 05:10 WBC RBC Hgb Hct MCV MCH MCHC RDW Plt Count Lymph % (Auto) [place] % (Auto) Lymph # [place] # Baso # Seg Neutrophils % Seg Neuts % (Manual) Lymphocytes % (Manual) Monocytes % (Manual) Eosinophils % (Manual) Basophils % (Manual) Nucleated RBC % Seg Neutrophils # Seg Neutrophils # Man Lymphocytes # (Manual) Monocytes # (Manual) Eosinophils # (Manual) Basophils # (Manual) PT INR Fibrinogen dRVVT Confirm Interp Factor V Activity POC ABG pH POC ABG pCO2 POC ABG pO2 ABG pO2 ABG HCO3 ABG Base Excess ABG Hemoglobin Oxyhemoglobin Sodium 147 H Potassium 3.2 L Chloride 115.7 H Carbon Dioxide 13 L BUN 111 H Creatinine 3.8 H Glucose 194 H POC Glucose 188 H Lactic Acid Calcium 7.3 L D Phosphorus Magnesium Direct Bilirubin AST ALT Alkaline Phosphatase Lactate Dehydrogenase Troponin T C-Reactive Protein 3.20 H Total Protein Albumin Prealbumin Triglycerides Cholesterol LDL Cholesterol Direct HDL Cholesterol Urine pH Urine WBC (Auto) Urine Creatinine Urine Total Protein Fluid Total Protein Vancomycin Trough Rheumatoid Factor Complement C4 Miscellaneous Test Crossmatch 09/23/16 09/23/16 09/23/16 11:37 12:29 18:01 WBC RBC Hgb Hct MCV MCH MCHC RDW Plt Count Lymph % (Auto) [place] % (Auto) Lymph # [place] # Baso # Seg Neutrophils % Seg Neuts % (Manual) Lymphocytes % (Manual) Monocytes % (Manual) Eosinophils % (Manual) Basophils % (Manual) Nucleated RBC % Seg Neutrophils # Seg Neutrophils # Man Lymphocytes # (Manual) Monocytes # (Manual) Eosinophils # (Manual) Basophils # (Manual) PT INR Fibrinogen dRVVT Confirm Interp Factor V Activity POC ABG pH POC ABG pCO2 18.9 L POC ABG pO2 143 H ABG pO2 ABG HCO3 ABG Base Excess ABG Hemoglobin Oxyhemoglobin Sodium Potassium Chloride Carbon Dioxide BUN Creatinine Glucose POC Glucose 153 H 108 H Lactic Acid Calcium Phosphorus Magnesium Direct Bilirubin AST ALT Alkaline Phosphatase Lactate Dehydrogenase Troponin T C-Reactive Protein Total Protein Albumin Prealbumin Triglycerides Cholesterol LDL Cholesterol Direct HDL Cholesterol Urine pH Urine WBC (Auto) Urine Creatinine Urine Total Protein Fluid Total Protein Vancomycin Trough Rheumatoid Factor Complement C4 Miscellaneous Test Crossmatch 09/23/16 09/23/16 09/24/16 21:19 23:43 05:16 WBC RBC Hgb Hct MCV MCH MCHC RDW Plt Count Lymph % (Auto) [place] % (Auto) Lymph # [place] # Baso # Seg Neutrophils % Seg Neuts % (Manual) Lymphocytes % (Manual) Monocytes % (Manual) Eosinophils % (Manual) Basophils % (Manual) Nucleated RBC % Seg Neutrophils # Seg Neutrophils # Man Lymphocytes # (Manual) Monocytes # (Manual) Eosinophils # (Manual) Basophils # (Manual) PT INR Fibrinogen dRVVT Confirm Interp Factor V Activity POC ABG pH POC ABG pCO2 17.3 L POC ABG pO2 112 H ABG pO2 ABG HCO3 ABG Base Excess ABG Hemoglobin Oxyhemoglobin Sodium Potassium Chloride Carbon Dioxide BUN Creatinine Glucose POC Glucose 143 H 164 H Lactic Acid Calcium Phosphorus Magnesium Direct Bilirubin AST ALT Alkaline Phosphatase Lactate Dehydrogenase Troponin T C-Reactive Protein Total Protein Albumin Prealbumin Triglycerides Cholesterol LDL Cholesterol Direct HDL Cholesterol Urine pH Urine WBC (Auto) Urine Creatinine Urine Total Protein Fluid Total Protein Vancomycin Trough Rheumatoid Factor Complement C4 Miscellaneous Test Crossmatch 09/24/16 09/24/16 09/24/16 05:21 11:58 17:06 WBC RBC Hgb Hct MCV MCH MCHC RDW Plt Count Lymph % (Auto) [place] % (Auto) Lymph # [place] # Baso # Seg Neutrophils % Seg Neuts % (Manual) Lymphocytes % (Manual) Monocytes % (Manual) Eosinophils % (Manual) Basophils % (Manual) Nucleated RBC % Seg Neutrophils # Seg Neutrophils # Man Lymphocytes # (Manual) Monocytes # (Manual) Eosinophils # (Manual) Basophils # (Manual) PT INR Fibrinogen dRVVT Confirm Interp Factor V Activity POC ABG pH POC ABG pCO2 POC ABG pO2 ABG pO2 ABG HCO3 ABG Base Excess ABG Hemoglobin Oxyhemoglobin Sodium Potassium Chloride Carbon Dioxide 10 L BUN 103 H Creatinine 4.3 H Glucose 163 H POC Glucose 173 H 167 H Lactic Acid Calcium 6.5 L Phosphorus Magnesium Direct Bilirubin AST ALT Alkaline Phosphatase Lactate Dehydrogenase Troponin T C-Reactive Protein Total Protein Albumin Prealbumin Triglycerides Cholesterol LDL Cholesterol Direct HDL Cholesterol Urine pH Urine WBC (Auto) Urine Creatinine Urine Total Protein Fluid Total Protein Vancomycin Trough Rheumatoid Factor Complement C4 Miscellaneous Test Crossmatch 09/24/16 09/24/16 09/24/16 20:15 21:02 23:48 WBC RBC Hgb Hct MCV MCH MCHC RDW Plt Count Lymph % (Auto) [place] % (Auto) Lymph # [place] # Baso # Seg Neutrophils % Seg Neuts % (Manual) Lymphocytes % (Manual) Monocytes % (Manual) Eosinophils % (Manual) Basophils % (Manual) Nucleated RBC % Seg Neutrophils # Seg Neutrophils # Man Lymphocytes # (Manual) Monocytes # (Manual) Eosinophils # (Manual) Basophils # (Manual) PT INR Fibrinogen dRVVT Confirm Interp Factor V Activity POC ABG pH 7.288 L POC ABG pCO2 30.2 L 21.5 L POC ABG pO2 32 L 39 L ABG pO2 ABG HCO3 ABG Base Excess ABG Hemoglobin Oxyhemoglobin Sodium Potassium Chloride Carbon Dioxide BUN Creatinine Glucose POC Glucose 109 H Lactic Acid Calcium Phosphorus Magnesium Direct Bilirubin AST ALT Alkaline Phosphatase Lactate Dehydrogenase Troponin T C-Reactive Protein Total Protein Albumin Prealbumin Triglycerides Cholesterol LDL Cholesterol Direct HDL Cholesterol Urine pH Urine WBC (Auto) Urine Creatinine Urine Total Protein Fluid Total Protein Vancomycin Trough Rheumatoid Factor Complement C4 Miscellaneous Test Crossmatch 09/25/16 09/25/16 09/25/16 04:20 04:20 04:20 WBC RBC 2.58 L Hgb 7.0 L Hct 21.0 L MCV MCH 27 L MCHC RDW 23.8 H Plt Count Lymph % (Auto) [place] % (Auto) Lymph # [place] # Baso # Seg Neutrophils % Seg Neuts % (Manual) Lymphocytes % (Manual) 12.0 L Monocytes % (Manual) Eosinophils % (Manual) 7.0 H Basophils % (Manual) 2.0 H Nucleated RBC % Seg Neutrophils # Seg Neutrophils # Man Lymphocytes # (Manual) 0.9 L Monocytes # (Manual) Eosinophils # (Manual) 0.5 H Basophils # (Manual) PT INR Fibrinogen dRVVT Confirm Interp Factor V Activity POC ABG pH POC ABG pCO2 POC ABG pO2 ABG pO2 ABG HCO3 ABG Base Excess ABG Hemoglobin Oxyhemoglobin Sodium Potassium Chloride Carbon Dioxide 15 L BUN 72 H Creatinine 3.8 H Glucose POC Glucose Lactic Acid Calcium 6.0 L Phosphorus 4.60 H Magnesium 1.60 L Direct Bilirubin AST ALT Alkaline Phosphatase Lactate Dehydrogenase Troponin T C-Reactive Protein Total Protein Albumin Prealbumin Triglycerides Cholesterol LDL Cholesterol Direct HDL Cholesterol Urine pH Urine WBC (Auto) Urine Creatinine Urine Total Protein Fluid Total Protein Vancomycin Trough Rheumatoid Factor Complement C4 Miscellaneous Test Crossmatch 09/25/16 09/25/16 09/25/16 04:57 08:02 10:30 WBC RBC Hgb Hct MCV MCH MCHC RDW Plt Count Lymph % (Auto) [place] % (Auto) Lymph # [place] # Baso # Seg Neutrophils % Seg Neuts % (Manual) Lymphocytes % (Manual) Monocytes % (Manual) Eosinophils % (Manual) Basophils % (Manual) Nucleated RBC % Seg Neutrophils # Seg Neutrophils # Man Lymphocytes # (Manual) Monocytes # (Manual) Eosinophils # (Manual) Basophils # (Manual) PT INR Fibrinogen dRVVT Confirm Interp Factor V Activity POC ABG pH POC ABG pCO2 24.7 L POC ABG pO2 152 H ABG pO2 ABG HCO3 ABG Base Excess ABG Hemoglobin Oxyhemoglobin Sodium Potassium Chloride Carbon Dioxide BUN Creatinine Glucose POC Glucose 113 H Lactic Acid Calcium Phosphorus Magnesium Direct Bilirubin AST ALT Alkaline Phosphatase Lactate Dehydrogenase Troponin T C-Reactive Protein Total Protein Albumin Prealbumin Triglycerides Cholesterol LDL Cholesterol Direct HDL Cholesterol Urine pH Urine WBC (Auto) Urine Creatinine Urine Total Protein Fluid Total Protein Vancomycin Trough Rheumatoid Factor Complement C4 Miscellaneous Test Crossmatch See Detail 09/25/16 09/25/16 09/25/16 12:05 17:44 23:47 WBC RBC Hgb Hct MCV MCH MCHC RDW Plt Count Lymph % (Auto) [place] % (Auto) Lymph # [place] # Baso # Seg Neutrophils % Seg Neuts % (Manual) Lymphocytes % (Manual) Monocytes % (Manual) Eosinophils % (Manual) Basophils % (Manual) Nucleated RBC % Seg Neutrophils # Seg Neutrophils # Man Lymphocytes # (Manual) Monocytes # (Manual) Eosinophils # (Manual) Basophils # (Manual) PT INR Fibrinogen dRVVT Confirm Interp Factor V Activity POC ABG pH POC ABG pCO2 POC ABG pO2 ABG pO2 ABG HCO3 ABG Base Excess ABG Hemoglobin Oxyhemoglobin Sodium Potassium Chloride Carbon Dioxide BUN Creatinine Glucose POC Glucose 117 H 119 H 150 H Lactic Acid Calcium Phosphorus Magnesium Direct Bilirubin AST ALT Alkaline Phosphatase Lactate Dehydrogenase Troponin T C-Reactive Protein Total Protein Albumin Prealbumin Triglycerides Cholesterol LDL Cholesterol Direct HDL Cholesterol Urine pH Urine WBC (Auto) Urine Creatinine Urine Total Protein Fluid Total Protein Vancomycin Trough Rheumatoid Factor Complement C4 Miscellaneous Test Crossmatch 09/26/16 09/26/16 09/26/16 04:25 04:25 04:25 WBC RBC 2.65 L Hgb 7.4 L Hct 21.6 L MCV MCH MCHC RDW 22.5 H Plt Count Lymph % (Auto) [place] % (Auto) Lymph # [place] # Baso # Seg Neutrophils % Seg Neuts % (Manual) Lymphocytes % (Manual) 6.0 L Monocytes % (Manual) Eosinophils % (Manual) 11.0 H Basophils % (Manual) Nucleated RBC % Seg Neutrophils # Seg Neutrophils # Man Lymphocytes # (Manual) 0.4 L Monocytes # (Manual) Eosinophils # (Manual) 0.6 H Basophils # (Manual) PT INR Fibrinogen dRVVT Confirm Interp Factor V Activity POC ABG pH POC ABG pCO2 POC ABG pO2 ABG pO2 ABG HCO3 ABG Base Excess ABG Hemoglobin Oxyhemoglobin Sodium Potassium Chloride 97.0 L Carbon Dioxide 19 L BUN 43 H Creatinine 2.6 H Glucose 130 H POC Glucose Lactic Acid 4.40 H* Calcium 6.7 L Phosphorus Magnesium Direct Bilirubin AST ALT Alkaline Phosphatase Lactate Dehydrogenase Troponin T C-Reactive Protein Total Protein Albumin Prealbumin Triglycerides Cholesterol LDL Cholesterol Direct HDL Cholesterol Urine pH Urine WBC (Auto) Urine Creatinine Urine Total Protein Fluid Total Protein Vancomycin Trough Rheumatoid Factor Complement C4 Miscellaneous Test Crossmatch 09/26/16 09/26/16 09/26/16 05:20 11:44 12:12 WBC RBC Hgb Hct MCV MCH MCHC RDW Plt Count Lymph % (Auto) [place] % (Auto) Lymph # [place] # Baso # Seg Neutrophils % Seg Neuts % (Manual) Lymphocytes % (Manual) Monocytes % (Manual) Eosinophils % (Manual) Basophils % (Manual) Nucleated RBC % Seg Neutrophils # Seg Neutrophils # Man Lymphocytes # (Manual) Monocytes # (Manual) Eosinophils # (Manual) Basophils # (Manual) PT INR Fibrinogen dRVVT Confirm Interp Factor V Activity POC ABG pH POC ABG pCO2 27.0 L POC ABG pO2 69 L ABG pO2 ABG HCO3 ABG Base Excess ABG Hemoglobin Oxyhemoglobin Sodium Potassium Chloride Carbon Dioxide BUN Creatinine Glucose POC Glucose 121 H 128 H Lactic Acid Calcium Phosphorus Magnesium Direct Bilirubin AST ALT Alkaline Phosphatase Lactate Dehydrogenase Troponin T C-Reactive Protein Total Protein Albumin Prealbumin Triglycerides Cholesterol LDL Cholesterol Direct HDL Cholesterol Urine pH Urine WBC (Auto) Urine Creatinine Urine Total Protein Fluid Total Protein Vancomycin Trough Rheumatoid Factor Complement C4 Miscellaneous Test Crossmatch 09/26/16 09/26/16 09/27/16 18:31 23:40 08:20 WBC RBC Hgb Hct MCV MCH MCHC RDW Plt Count Lymph % (Auto) [place] % (Auto) Lymph # [place] # Baso # Seg Neutrophils % Seg Neuts % (Manual) Lymphocytes % (Manual) Monocytes % (Manual) Eosinophils % (Manual) Basophils % (Manual) Nucleated RBC % Seg Neutrophils # Seg Neutrophils # Man Lymphocytes # (Manual) Monocytes # (Manual) Eosinophils # (Manual) Basophils # (Manual) PT INR Fibrinogen dRVVT Confirm Interp Factor V Activity POC ABG pH POC ABG pCO2 POC ABG pO2 ABG pO2 ABG HCO3 ABG Base Excess ABG Hemoglobin Oxyhemoglobin Sodium Potassium Chloride Carbon Dioxide BUN Creatinine Glucose POC Glucose 120 H 133 H Lactic Acid 4.10 H* Calcium Phosphorus Magnesium Direct Bilirubin AST ALT Alkaline Phosphatase Lactate Dehydrogenase Troponin T C-Reactive Protein Total Protein Albumin Prealbumin Triglycerides Cholesterol LDL Cholesterol Direct HDL Cholesterol Urine pH Urine WBC (Auto) Urine Creatinine Urine Total Protein Fluid Total Protein Vancomycin Trough Rheumatoid Factor Complement C4 Miscellaneous Test Crossmatch 09/27/16 09/27/16 09/27/16 11:23 15:00 18:15 WBC RBC Hgb Hct MCV MCH MCHC RDW Plt Count Lymph % (Auto) [place] % (Auto) Lymph # [place] # Baso # Seg Neutrophils % Seg Neuts % (Manual) Lymphocytes % (Manual) Monocytes % (Manual) Eosinophils % (Manual) Basophils % (Manual) Nucleated RBC % Seg Neutrophils # Seg Neutrophils # Man Lymphocytes # (Manual) Monocytes # (Manual) Eosinophils # (Manual) Basophils # (Manual) PT INR Fibrinogen dRVVT Confirm Interp Factor V Activity POC ABG pH 7.459 H POC ABG pCO2 27.1 L POC ABG pO2 140 H ABG pO2 ABG HCO3 ABG Base Excess ABG Hemoglobin Oxyhemoglobin Sodium Potassium Chloride Carbon Dioxide BUN Creatinine Glucose POC Glucose 114 H 127 H Lactic Acid Calcium Phosphorus Magnesium Direct Bilirubin AST ALT Alkaline Phosphatase Lactate Dehydrogenase Troponin T C-Reactive Protein Total Protein Albumin Prealbumin Triglycerides Cholesterol LDL Cholesterol Direct HDL Cholesterol Urine pH Urine WBC (Auto) Urine Creatinine Urine Total Protein Fluid Total Protein Vancomycin Trough Rheumatoid Factor Complement C4 Miscellaneous Test Crossmatch 09/27/16 09/27/16 09/28/16 Unknown Unknown 03:45 WBC RBC 2.49 L Hgb 6.8 L Hct 20.7 L MCV MCH 27 L MCHC RDW 22.1 H Plt Count Lymph % (Auto) [place] % (Auto) Lymph # [place] # Baso # Seg Neutrophils % Seg Neuts % (Manual) 32.0 L Lymphocytes % (Manual) 12.0 L Monocytes % (Manual) 11.0 H Eosinophils % (Manual) 10.0 H Basophils % (Manual) Nucleated RBC % Seg Neutrophils # Seg Neutrophils # Man Lymphocytes # (Manual) 1.0 L Monocytes # (Manual) 0.9 H Eosinophils # (Manual) 0.8 H Basophils # (Manual) PT INR Fibrinogen dRVVT Confirm Interp Factor V Activity POC ABG pH POC ABG pCO2 POC ABG pO2 ABG pO2 ABG HCO3 ABG Base Excess ABG Hemoglobin Oxyhemoglobin Sodium 135 L 135 L Potassium 3.5 L Chloride 93.6 L 94.4 L Carbon Dioxide 17 L 21 L BUN 45 H 28 H Creatinine 3.3 H 2.5 H Glucose 106 H POC Glucose Lactic Acid Calcium 7.3 L 7.1 L Phosphorus Magnesium Direct Bilirubin AST ALT Alkaline Phosphatase Lactate Dehydrogenase Troponin T C-Reactive Protein Total Protein Albumin Prealbumin Triglycerides Cholesterol LDL Cholesterol Direct HDL Cholesterol Urine pH Urine WBC (Auto) Urine Creatinine Urine Total Protein Fluid Total Protein Vancomycin Trough Rheumatoid Factor Complement C4 Miscellaneous Test Crossmatch 09/28/16 09/28/16 09/28/16 03:45 07:25 11:58 WBC 13.3 H RBC 3.01 L Hgb 8.4 L Hct 25.0 L MCV MCH MCHC RDW 20.5 H Plt Count 128 L Lymph % (Auto) [place] % (Auto) Lymph # [place] # Baso # Seg Neutrophils % Seg Neuts % (Manual) Lymphocytes % (Manual) 7.0 L Monocytes % (Manual) Eosinophils % (Manual) 6.0 H Basophils % (Manual) Nucleated RBC % Seg Neutrophils # Seg Neutrophils # Man Lymphocytes # (Manual) 0.9 L Monocytes # (Manual) Eosinophils # (Manual) 0.8 H Basophils # (Manual) PT INR Fibrinogen dRVVT Confirm Interp Factor V Activity POC ABG pH POC ABG pCO2 POC ABG pO2 ABG pO2 ABG HCO3 ABG Base Excess ABG Hemoglobin Oxyhemoglobin Sodium Potassium Chloride Carbon Dioxide BUN Creatinine Glucose POC Glucose 121 H Lactic Acid 4.50 H* Calcium Phosphorus Magnesium Direct Bilirubin AST ALT Alkaline Phosphatase Lactate Dehydrogenase Troponin T C-Reactive Protein Total Protein Albumin Prealbumin Triglycerides Cholesterol LDL Cholesterol Direct HDL Cholesterol Urine pH Urine WBC (Auto) Urine Creatinine Urine Total Protein Fluid Total Protein Vancomycin Trough Rheumatoid Factor Complement C4 Miscellaneous Test Crossmatch 09/29/16 09/29/16 09/29/16 06:45 06:45 06:45 WBC 14.9 H RBC 2.74 L Hgb 7.6 L Hct 23.2 L MCV MCH MCHC RDW 20.5 H Plt Count 81 L Lymph % (Auto) [place] % (Auto) Lymph # [place] # Baso # Seg Neutrophils % Seg Neuts % (Manual) 81.0 H Lymphocytes % (Manual) 4.0 L Monocytes % (Manual) Eosinophils % (Manual) Basophils % (Manual) Nucleated RBC % Seg Neutrophils # Seg Neutrophils # Man 12.1 H Lymphocytes # (Manual) 0.6 L Monocytes # (Manual) Eosinophils # (Manual) Basophils # (Manual) PT INR Fibrinogen dRVVT Confirm Interp Factor V Activity POC ABG pH POC ABG pCO2 POC ABG pO2 ABG pO2 ABG HCO3 ABG Base Excess ABG Hemoglobin Oxyhemoglobin Sodium 133 L Potassium 3.4 L Chloride 92.5 L Carbon Dioxide 21 L BUN 33 H Creatinine 3.0 H Glucose POC Glucose Lactic Acid Calcium 6.6 L Phosphorus Magnesium 1.40 L Direct Bilirubin 0.9 H AST ALT Alkaline Phosphatase Lactate Dehydrogenase Troponin T C-Reactive Protein Total Protein 4.3 L Albumin 1.3 L Prealbumin Triglycerides Cholesterol LDL Cholesterol Direct HDL Cholesterol Urine pH Urine WBC (Auto) Urine Creatinine Urine Total Protein Fluid Total Protein Vancomycin Trough Rheumatoid Factor Complement C4 Miscellaneous Test Crossmatch 09/29/16 09/29/16 09/30/16 17:52 20:12 00:07 WBC RBC Hgb Hct MCV MCH MCHC RDW Plt Count Lymph % (Auto) [place] % (Auto) Lymph # [place] # Baso # Seg Neutrophils % Seg Neuts % (Manual) Lymphocytes % (Manual) Monocytes % (Manual) Eosinophils % (Manual) Basophils % (Manual) Nucleated RBC % Seg Neutrophils # Seg Neutrophils # Man Lymphocytes # (Manual) Monocytes # (Manual) Eosinophils # (Manual) Basophils # (Manual) PT INR Fibrinogen dRVVT Confirm Interp Factor V Activity POC ABG pH POC ABG pCO2 POC ABG pO2 ABG pO2 ABG HCO3 ABG Base Excess ABG Hemoglobin Oxyhemoglobin Sodium Potassium Chloride Carbon Dioxide BUN Creatinine Glucose POC Glucose 50 L 51 L Lactic Acid Calcium Phosphorus Magnesium Direct Bilirubin AST ALT Alkaline Phosphatase Lactate Dehydrogenase Troponin T 0.204 H* C-Reactive Protein Total Protein Albumin Prealbumin Triglycerides Cholesterol 31 L LDL Cholesterol Direct 4 L HDL Cholesterol 3 L Urine pH Urine WBC (Auto) Urine Creatinine Urine Total Protein Fluid Total Protein Vancomycin Trough Rheumatoid Factor Complement C4 Miscellaneous Test Crossmatch 09/30/16 09/30/16 09/30/16 01:30 05:15 06:10 WBC RBC Hgb Hct MCV MCH MCHC RDW Plt Count Lymph % (Auto) [place] % (Auto) Lymph # [place] # Baso # Seg Neutrophils % Seg Neuts % (Manual) Lymphocytes % (Manual) Monocytes % (Manual) Eosinophils % (Manual) Basophils % (Manual) Nucleated RBC % Seg Neutrophils # Seg Neutrophils # Man Lymphocytes # (Manual) Monocytes # (Manual) Eosinophils # (Manual) Basophils # (Manual) PT INR Fibrinogen dRVVT Confirm Interp Factor V Activity POC ABG pH POC ABG pCO2 POC ABG pO2 ABG pO2 ABG HCO3 ABG Base Excess ABG Hemoglobin Oxyhemoglobin Sodium 133 L Potassium 3.2 L Chloride 93.2 L Carbon Dioxide 19 L BUN 36 H Creatinine 3.2 H Glucose 104 H POC Glucose 167 H 146 H Lactic Acid Calcium 6.4 L Phosphorus Magnesium 1.60 L Direct Bilirubin AST ALT Alkaline Phosphatase Lactate Dehydrogenase Troponin T C-Reactive Protein Total Protein Albumin Prealbumin Triglycerides Cholesterol LDL Cholesterol Direct HDL Cholesterol Urine pH Urine WBC (Auto) Urine Creatinine Urine Total Protein Fluid Total Protein Vancomycin Trough Rheumatoid Factor Complement C4 Miscellaneous Test Crossmatch 09/30/16 09/30/16 09/30/16 11:26 13:39 18:38 WBC RBC Hgb Hct MCV MCH MCHC RDW Plt Count Lymph % (Auto) [place] % (Auto) Lymph # [place] # Baso # Seg Neutrophils % Seg Neuts % (Manual) Lymphocytes % (Manual) Monocytes % (Manual) Eosinophils % (Manual) Basophils % (Manual) Nucleated RBC % Seg Neutrophils # Seg Neutrophils # Man Lymphocytes # (Manual) Monocytes # (Manual) Eosinophils # (Manual) Basophils # (Manual) PT INR Fibrinogen dRVVT Confirm Interp Factor V Activity POC ABG pH 7.479 H POC ABG pCO2 29.8 L POC ABG pO2 117 H ABG pO2 ABG HCO3 ABG Base Excess ABG Hemoglobin Oxyhemoglobin Sodium Potassium Chloride Carbon Dioxide BUN Creatinine Glucose POC Glucose 140 H 122 H Lactic Acid Calcium Phosphorus Magnesium Direct Bilirubin AST ALT Alkaline Phosphatase Lactate Dehydrogenase Troponin T C-Reactive Protein Total Protein Albumin Prealbumin Triglycerides Cholesterol LDL Cholesterol Direct HDL Cholesterol Urine pH Urine WBC (Auto) Urine Creatinine Urine Total Protein Fluid Total Protein Vancomycin Trough Rheumatoid Factor Complement C4 Miscellaneous Test Crossmatch 10/01/16 10/01/16 10/01/16 06:00 06:00 12:37 WBC 12.6 H RBC 2.75 L Hgb 7.3 L Hct 23.3 L MCV MCH 27 L MCHC RDW 20.6 H Plt Count 72 L Lymph % (Auto) [place] % (Auto) Lymph # [place] # Baso # Seg Neutrophils % Seg Neuts % (Manual) 31.0 L Lymphocytes % (Manual) 8.0 L Monocytes % (Manual) Eosinophils % (Manual) Basophils % (Manual) Nucleated RBC % 3.0 H Seg Neutrophils # Seg Neutrophils # Man Lymphocytes # (Manual) 1.0 L Monocytes # (Manual) Eosinophils # (Manual) Basophils # (Manual) PT INR Fibrinogen dRVVT Confirm Interp Factor V Activity POC ABG pH POC ABG pCO2 POC ABG pO2 ABG pO2 ABG HCO3 ABG Base Excess ABG Hemoglobin Oxyhemoglobin Sodium 127 L Potassium Chloride 86.8 L Carbon Dioxide 20 L BUN 42 H Creatinine 3.5 H Glucose POC Glucose 65 L Lactic Acid Calcium 7.0 L Phosphorus Magnesium Direct Bilirubin AST ALT Alkaline Phosphatase Lactate Dehydrogenase Troponin T C-Reactive Protein Total Protein Albumin Prealbumin Triglycerides Cholesterol LDL Cholesterol Direct HDL Cholesterol Urine pH Urine WBC (Auto) Urine Creatinine Urine Total Protein Fluid Total Protein Vancomycin Trough Rheumatoid Factor Complement C4 Miscellaneous Test Crossmatch 10/01/16 10/01/16 10/02/16 17:39 23:32 00:59 WBC RBC Hgb Hct MCV MCH MCHC RDW Plt Count Lymph % (Auto) [place] % (Auto) Lymph # [place] # Baso # Seg Neutrophils % Seg Neuts % (Manual) Lymphocytes % (Manual) Monocytes % (Manual) Eosinophils % (Manual) Basophils % (Manual) Nucleated RBC % Seg Neutrophils # Seg Neutrophils # Man Lymphocytes # (Manual) Monocytes # (Manual) Eosinophils # (Manual) Basophils # (Manual) PT INR Fibrinogen dRVVT Confirm Interp Factor V Activity POC ABG pH POC ABG pCO2 POC ABG pO2 ABG pO2 ABG HCO3 ABG Base Excess ABG Hemoglobin Oxyhemoglobin Sodium Potassium Chloride Carbon Dioxide BUN Creatinine Glucose POC Glucose 107 H 52 L 145 H Lactic Acid Calcium Phosphorus Magnesium Direct Bilirubin AST ALT Alkaline Phosphatase Lactate Dehydrogenase Troponin T C-Reactive Protein Total Protein Albumin Prealbumin Triglycerides Cholesterol LDL Cholesterol Direct HDL Cholesterol Urine pH Urine WBC (Auto) Urine Creatinine Urine Total Protein Fluid Total Protein Vancomycin Trough Rheumatoid Factor Complement C4 Miscellaneous Test Crossmatch 10/02/16 10/02/16 10/02/16 10:30 10:50 10:50 WBC 14.7 H RBC 2.76 L Hgb 7.4 L Hct 23.6 L MCV MCH 27 L MCHC RDW 20.2 H Plt Count 79 L Lymph % (Auto) [place] % (Auto) Lymph # [place] # Baso # Seg Neutrophils % Seg Neuts % (Manual) 86.0 H Lymphocytes % (Manual) 6.0 L Monocytes % (Manual) Eosinophils % (Manual) Basophils % (Manual) Nucleated RBC % Seg Neutrophils # Seg Neutrophils # Man 12.6 H Lymphocytes # (Manual) 0.9 L Monocytes # (Manual) Eosinophils # (Manual) Basophils # (Manual) PT INR Fibrinogen dRVVT Confirm Interp Factor V Activity POC ABG pH 7.486 H POC ABG pCO2 30.1 L POC ABG pO2 108 H ABG pO2 ABG HCO3 ABG Base Excess ABG Hemoglobin Oxyhemoglobin Sodium 131 L Potassium 3.4 L Chloride 89.9 L Carbon Dioxide BUN 26 H Creatinine 2.6 H Glucose POC Glucose Lactic Acid Calcium 7.0 L Phosphorus Magnesium Direct Bilirubin AST ALT Alkaline Phosphatase Lactate Dehydrogenase Troponin T C-Reactive Protein Total Protein Albumin Prealbumin Triglycerides Cholesterol LDL Cholesterol Direct HDL Cholesterol Urine pH Urine WBC (Auto) Urine Creatinine Urine Total Protein Fluid Total Protein Vancomycin Trough Rheumatoid Factor Complement C4 Miscellaneous Test Crossmatch 10/02/16 10/03/16 10/03/16 23:45 00:45 05:10 WBC 12.9 H RBC 2.77 L Hgb 7.6 L Hct 23.7 L MCV MCH 27 L MCHC RDW 19.7 H Plt Count 89 L Lymph % (Auto) [place] % (Auto) Lymph # [place] # Baso # Seg Neutrophils % Seg Neuts % (Manual) Lymphocytes % (Manual) 8.0 L Monocytes % (Manual) Eosinophils % (Manual) Basophils % (Manual) Nucleated RBC % Seg Neutrophils # 11.9 H Seg Neutrophils # Man Lymphocytes # (Manual) 1.0 L Monocytes # (Manual) Eosinophils # (Manual) Basophils # (Manual) PT INR Fibrinogen dRVVT Confirm Interp Factor V Activity POC ABG pH POC ABG pCO2 POC ABG pO2 ABG pO2 ABG HCO3 ABG Base Excess ABG Hemoglobin Oxyhemoglobin Sodium Potassium Chloride Carbon Dioxide BUN Creatinine Glucose POC Glucose 55 L 199 H Lactic Acid Calcium Phosphorus Magnesium Direct Bilirubin AST ALT Alkaline Phosphatase Lactate Dehydrogenase Troponin T C-Reactive Protein Total Protein Albumin Prealbumin Triglycerides Cholesterol LDL Cholesterol Direct HDL Cholesterol Urine pH Urine WBC (Auto) Urine Creatinine Urine Total Protein Fluid Total Protein Vancomycin Trough Rheumatoid Factor Complement C4 Miscellaneous Test Crossmatch 10/03/16 10/03/16 10/03/16 05:10 12:14 13:18 WBC RBC Hgb Hct MCV MCH MCHC RDW Plt Count Lymph % (Auto) [place] % (Auto) Lymph # [place] # Baso # Seg Neutrophils % Seg Neuts % (Manual) Lymphocytes % (Manual) Monocytes % (Manual) Eosinophils % (Manual) Basophils % (Manual) Nucleated RBC % Seg Neutrophils # Seg Neutrophils # Man Lymphocytes # (Manual) Monocytes # (Manual) Eosinophils # (Manual) Basophils # (Manual) PT INR Fibrinogen dRVVT Confirm Interp Factor V Activity POC ABG pH POC ABG pCO2 POC ABG pO2 ABG pO2 ABG HCO3 ABG Base Excess ABG Hemoglobin Oxyhemoglobin Sodium 129 L Potassium 3.3 L Chloride 88.8 L Carbon Dioxide 20 L BUN 29 H Creatinine 2.8 H Glucose POC Glucose 68 L 127 H Lactic Acid Calcium 7.2 L Phosphorus Magnesium Direct Bilirubin AST ALT Alkaline Phosphatase Lactate Dehydrogenase Troponin T C-Reactive Protein Total Protein Albumin Prealbumin Triglycerides Cholesterol LDL Cholesterol Direct HDL Cholesterol Urine pH Urine WBC (Auto) Urine Creatinine Urine Total Protein Fluid Total Protein Vancomycin Trough Rheumatoid Factor Complement C4 Miscellaneous Test Crossmatch 10/03/16 10/03/16 10/03/16 14:42 18:21 19:09 WBC RBC Hgb Hct MCV MCH MCHC RDW Plt Count Lymph % (Auto) [place] % (Auto) Lymph # [place] # Baso # Seg Neutrophils % Seg Neuts % (Manual) Lymphocytes % (Manual) Monocytes % (Manual) Eosinophils % (Manual) Basophils % (Manual) Nucleated RBC % Seg Neutrophils # Seg Neutrophils # Man Lymphocytes # (Manual) Monocytes # (Manual) Eosinophils # (Manual) Basophils # (Manual) PT INR Fibrinogen dRVVT Confirm Interp Factor V Activity POC ABG pH 7.499 H POC ABG pCO2 28.4 L POC ABG pO2 44 L ABG pO2 ABG HCO3 ABG Base Excess ABG Hemoglobin Oxyhemoglobin Sodium Potassium Chloride Carbon Dioxide BUN Creatinine Glucose POC Glucose 64 L 205 H Lactic Acid Calcium Phosphorus Magnesium Direct Bilirubin AST ALT Alkaline Phosphatase Lactate Dehydrogenase Troponin T C-Reactive Protein Total Protein Albumin Prealbumin Triglycerides Cholesterol LDL Cholesterol Direct HDL Cholesterol Urine pH Urine WBC (Auto) Urine Creatinine Urine Total Protein Fluid Total Protein Vancomycin Trough Rheumatoid Factor Complement C4 Miscellaneous Test Crossmatch 10/03/16 10/04/16 10/04/16 23:33 04:18 06:30 WBC RBC 2.54 L Hgb 7.1 L Hct 21.7 L MCV MCH MCHC RDW 19.5 H Plt Count 76 L Lymph % (Auto) [place] % (Auto) Lymph # [place] # Baso # Seg Neutrophils % Seg Neuts % (Manual) 88.0 H Lymphocytes % (Manual) 6.0 L Monocytes % (Manual) Eosinophils % (Manual) Basophils % (Manual) Nucleated RBC % Seg Neutrophils # Seg Neutrophils # Man 8.8 H Lymphocytes # (Manual) 0.6 L Monocytes # (Manual) Eosinophils # (Manual) Basophils # (Manual) PT INR Fibrinogen dRVVT Confirm Interp Factor V Activity POC ABG pH 7.461 H POC ABG pCO2 33.6 L POC ABG pO2 211 H ABG pO2 ABG HCO3 ABG Base Excess ABG Hemoglobin Oxyhemoglobin Sodium Potassium Chloride Carbon Dioxide BUN Creatinine Glucose POC Glucose 136 H Lactic Acid Calcium Phosphorus Magnesium Direct Bilirubin AST ALT Alkaline Phosphatase Lactate Dehydrogenase Troponin T C-Reactive Protein Total Protein Albumin Prealbumin Triglycerides Cholesterol LDL Cholesterol Direct HDL Cholesterol Urine pH Urine WBC (Auto) Urine Creatinine Urine Total Protein Fluid Total Protein Vancomycin Trough Rheumatoid Factor Complement C4 Miscellaneous Test Crossmatch 10/04/16 10/04/16 10/04/16 06:30 11:45 17:54 WBC RBC Hgb Hct MCV MCH MCHC RDW Plt Count Lymph % (Auto) [place] % (Auto) Lymph # [place] # Baso # Seg Neutrophils % Seg Neuts % (Manual) Lymphocytes % (Manual) Monocytes % (Manual) Eosinophils % (Manual) Basophils % (Manual) Nucleated RBC % Seg Neutrophils # Seg Neutrophils # Man Lymphocytes # (Manual) Monocytes # (Manual) Eosinophils # (Manual) Basophils # (Manual) PT INR Fibrinogen dRVVT Confirm Interp Factor V Activity POC ABG pH POC ABG pCO2 POC ABG pO2 ABG pO2 ABG HCO3 ABG Base Excess ABG Hemoglobin Oxyhemoglobin Sodium 128 L Potassium Chloride 87.4 L Carbon Dioxide 20 L BUN 34 H Creatinine 2.9 H Glucose 127 H POC Glucose 158 H 160 H Lactic Acid Calcium 7.4 L Phosphorus Magnesium Direct Bilirubin AST ALT Alkaline Phosphatase Lactate Dehydrogenase Troponin T C-Reactive Protein Total Protein Albumin Prealbumin Triglycerides Cholesterol LDL Cholesterol Direct HDL Cholesterol Urine pH Urine WBC (Auto) Urine Creatinine Urine Total Protein Fluid Total Protein Vancomycin Trough Rheumatoid Factor Complement C4 Miscellaneous Test Crossmatch 10/04/16 10/05/16 10/05/16 23:25 04:30 05:00 WBC RBC 2.64 L Hgb 7.5 L Hct 22.6 L MCV MCH MCHC RDW 19.3 H Plt Count 80 L Lymph % (Auto) [place] % (Auto) Lymph # [place] # Baso # Seg Neutrophils % Seg Neuts % (Manual) Lymphocytes % (Manual) 12.0 L Monocytes % (Manual) Eosinophils % (Manual) Basophils % (Manual) Nucleated RBC % Seg Neutrophils # Seg Neutrophils # Man Lymphocytes # (Manual) Monocytes # (Manual) Eosinophils # (Manual) Basophils # (Manual) PT INR Fibrinogen dRVVT Confirm Interp Factor V Activity POC ABG pH 7.475 H POC ABG pCO2 33.3 L POC ABG pO2 140 H ABG pO2 ABG HCO3 ABG Base Excess ABG Hemoglobin Oxyhemoglobin Sodium Potassium Chloride Carbon Dioxide BUN Creatinine Glucose POC Glucose 141 H Lactic Acid Calcium Phosphorus Magnesium Direct Bilirubin AST ALT Alkaline Phosphatase Lactate Dehydrogenase Troponin T C-Reactive Protein Total Protein Albumin Prealbumin Triglycerides Cholesterol LDL Cholesterol Direct HDL Cholesterol Urine pH Urine WBC (Auto) Urine Creatinine Urine Total Protein Fluid Total Protein Vancomycin Trough Rheumatoid Factor Complement C4 Miscellaneous Test Crossmatch 10/05/16 10/05/16 10/05/16 05:00 05:09 12:58 WBC RBC Hgb Hct MCV MCH MCHC RDW Plt Count Lymph % (Auto) [place] % (Auto) Lymph # [place] # Baso # Seg Neutrophils % Seg Neuts % (Manual) Lymphocytes % (Manual) Monocytes % (Manual) Eosinophils % (Manual) Basophils % (Manual) Nucleated RBC % Seg Neutrophils # Seg Neutrophils # Man Lymphocytes # (Manual) Monocytes # (Manual) Eosinophils # (Manual) Basophils # (Manual) PT INR Fibrinogen dRVVT Confirm Interp Factor V Activity POC ABG pH POC ABG pCO2 POC ABG pO2 ABG pO2 ABG HCO3 ABG Base Excess ABG Hemoglobin Oxyhemoglobin Sodium 131 L Potassium Chloride 94.0 L Carbon Dioxide 20 L BUN 22 H Creatinine 2.0 H Glucose 123 H POC Glucose 166 H 179 H Lactic Acid Calcium 7.7 L Phosphorus 2.20 L D Magnesium Direct Bilirubin AST ALT Alkaline Phosphatase Lactate Dehydrogenase Troponin T C-Reactive Protein Total Protein Albumin Prealbumin Triglycerides Cholesterol LDL Cholesterol Direct HDL Cholesterol Urine pH Urine WBC (Auto) Urine Creatinine Urine Total Protein Fluid Total Protein Vancomycin Trough Rheumatoid Factor Complement C4 Miscellaneous Test Crossmatch 10/05/16 10/05/16 10/05/16 15:50 18:53 23:12 WBC RBC Hgb Hct MCV MCH MCHC RDW Plt Count Lymph % (Auto) [place] % (Auto) Lymph # [place] # Baso # Seg Neutrophils % Seg Neuts % (Manual) Lymphocytes % (Manual) Monocytes % (Manual) Eosinophils % (Manual) Basophils % (Manual) Nucleated RBC % Seg Neutrophils # Seg Neutrophils # Man Lymphocytes # (Manual) Monocytes # (Manual) Eosinophils # (Manual) Basophils # (Manual) PT INR Fibrinogen dRVVT Confirm Interp Factor V Activity POC ABG pH POC ABG pCO2 POC ABG pO2 ABG pO2 ABG HCO3 ABG Base Excess ABG Hemoglobin Oxyhemoglobin Sodium Potassium Chloride Carbon Dioxide BUN Creatinine Glucose POC Glucose 150 H 164 H Lactic Acid Calcium Phosphorus Magnesium Direct Bilirubin AST ALT Alkaline Phosphatase Lactate Dehydrogenase Troponin T C-Reactive Protein Total Protein Albumin Prealbumin Triglycerides Cholesterol LDL Cholesterol Direct HDL Cholesterol Urine pH Urine WBC (Auto) Urine Creatinine Urine Total Protein Fluid Total Protein Vancomycin Trough Rheumatoid Factor Complement C4 Miscellaneous Test Crossmatch See Detail 10/06/16 10/06/16 10/06/16 03:50 03:50 04:53 WBC RBC 3.00 L Hgb 8.6 L Hct 25.8 L MCV MCH MCHC RDW 17.9 H Plt Count 65 L Lymph % (Auto) [place] % (Auto) Lymph # [place] # Baso # Seg Neutrophils % Seg Neuts % (Manual) 30.0 L Lymphocytes % (Manual) 5.0 L Monocytes % (Manual) Eosinophils % (Manual) Basophils % (Manual) Nucleated RBC % Seg Neutrophils # Seg Neutrophils # Man Lymphocytes # (Manual) 0.4 L Monocytes # (Manual) Eosinophils # (Manual) Basophils # (Manual) PT INR Fibrinogen dRVVT Confirm Interp Factor V Activity POC ABG pH 7.310 L POC ABG pCO2 49.0 H POC ABG pO2 ABG pO2 ABG HCO3 ABG Base Excess ABG Hemoglobin Oxyhemoglobin Sodium 133 L Potassium Chloride 95.9 L Carbon Dioxide BUN 26 H Creatinine 2.0 H Glucose 116 H POC Glucose Lactic Acid Calcium 7.8 L Phosphorus Magnesium Direct Bilirubin AST ALT Alkaline Phosphatase Lactate Dehydrogenase Troponin T C-Reactive Protein Total Protein Albumin Prealbumin Triglycerides Cholesterol LDL Cholesterol Direct HDL Cholesterol Urine pH Urine WBC (Auto) Urine Creatinine Urine Total Protein Fluid Total Protein Vancomycin Trough Rheumatoid Factor Complement C4 Miscellaneous Test Crossmatch 10/06/16 10/06/16 10/06/16 05:23 11:52 18:34 WBC RBC Hgb Hct MCV MCH MCHC RDW Plt Count Lymph % (Auto) [place] % (Auto) Lymph # [place] # Baso # Seg Neutrophils % Seg Neuts % (Manual) Lymphocytes % (Manual) Monocytes % (Manual) Eosinophils % (Manual) Basophils % (Manual) Nucleated RBC % Seg Neutrophils # Seg Neutrophils # Man Lymphocytes # (Manual) Monocytes # (Manual) Eosinophils # (Manual) Basophils # (Manual) PT INR Fibrinogen dRVVT Confirm Interp Factor V Activity POC ABG pH POC ABG pCO2 POC ABG pO2 ABG pO2 ABG HCO3 ABG Base Excess ABG Hemoglobin Oxyhemoglobin Sodium Potassium Chloride Carbon Dioxide BUN Creatinine Glucose POC Glucose 126 H 116 H 129 H Lactic Acid Calcium Phosphorus Magnesium Direct Bilirubin AST ALT Alkaline Phosphatase Lactate Dehydrogenase Troponin T C-Reactive Protein Total Protein Albumin Prealbumin Triglycerides Cholesterol LDL Cholesterol Direct HDL Cholesterol Urine pH Urine WBC (Auto) Urine Creatinine Urine Total Protein Fluid Total Protein Vancomycin Trough Rheumatoid Factor Complement C4 Miscellaneous Test Crossmatch 10/07/16 10/07/16 10/07/16 03:45 05:00 10:00 WBC 17.0 H RBC 2.68 L Hgb 7.3 L Hct 25.3 L MCV MCH 27 L MCHC 29 L RDW 19.6 H Plt Count 74 L Lymph % (Auto) [place] % (Auto) Lymph # [place] # Baso # Seg Neutrophils % Seg Neuts % (Manual) Lymphocytes % (Manual) 12.0 L Monocytes % (Manual) Eosinophils % (Manual) Basophils % (Manual) Nucleated RBC % 4.0 H Seg Neutrophils # Seg Neutrophils # Man 10.7 H Lymphocytes # (Manual) Monocytes # (Manual) Eosinophils # (Manual) Basophils # (Manual) PT INR Fibrinogen dRVVT Confirm Interp Factor V Activity POC ABG pH POC ABG pCO2 POC ABG pO2 ABG pO2 ABG HCO3 ABG Base Excess ABG Hemoglobin Oxyhemoglobin Sodium 130 L Potassium 3.2 L Chloride 93.9 L Carbon Dioxide 20 L BUN 44 H Creatinine 2.7 H Glucose 129 H POC Glucose Lactic Acid Calcium 7.4 L Phosphorus Magnesium Direct Bilirubin AST ALT 6 L Alkaline Phosphatase 195 H Lactate Dehydrogenase Troponin T C-Reactive Protein Total Protein 4.9 L Albumin 1.0 L Prealbumin Triglycerides Cholesterol LDL Cholesterol Direct HDL Cholesterol Urine pH Urine WBC (Auto) Urine Creatinine Urine Total Protein Fluid Total Protein Vancomycin Trough Rheumatoid Factor Complement C4 Miscellaneous Test Flexitest 1 H Crossmatch 10/07/16 10/07/16 10/07/16 10:00 11:24 18:10 WBC RBC Hgb Hct MCV MCH MCHC RDW Plt Count Lymph % (Auto) [place] % (Auto) Lymph # [place] # Baso # Seg Neutrophils % Seg Neuts % (Manual) Lymphocytes % (Manual) Monocytes % (Manual) Eosinophils % (Manual) Basophils % (Manual) Nucleated RBC % Seg Neutrophils # Seg Neutrophils # Man Lymphocytes # (Manual) Monocytes # (Manual) Eosinophils # (Manual) Basophils # (Manual) PT INR Fibrinogen dRVVT Confirm Interp Factor V Activity POC ABG pH POC ABG pCO2 POC ABG pO2 ABG pO2 ABG HCO3 ABG Base Excess ABG Hemoglobin Oxyhemoglobin Sodium Potassium Chloride Carbon Dioxide BUN Creatinine Glucose POC Glucose 116 H 130 H Lactic Acid Calcium Phosphorus Magnesium Direct Bilirubin AST ALT Alkaline Phosphatase Lactate Dehydrogenase Troponin T C-Reactive Protein 19.40 H Total Protein Albumin Prealbumin Triglycerides Cholesterol LDL Cholesterol Direct HDL Cholesterol Urine pH Urine WBC (Auto) Urine Creatinine Urine Total Protein Fluid Total Protein Vancomycin Trough Rheumatoid Factor Complement C4 Miscellaneous Test Crossmatch 10/07/16 10/08/16 10/08/16 18:30 00:00 04:00 WBC RBC Hgb Hct MCV MCH MCHC RDW Plt Count Lymph % (Auto) [place] % (Auto) Lymph # [place] # Baso # Seg Neutrophils % Seg Neuts % (Manual) Lymphocytes % (Manual) Monocytes % (Manual) Eosinophils % (Manual) Basophils % (Manual) Nucleated RBC % Seg Neutrophils # Seg Neutrophils # Man Lymphocytes # (Manual) Monocytes # (Manual) Eosinophils # (Manual) Basophils # (Manual) PT INR Fibrinogen dRVVT Confirm Interp Factor V Activity POC ABG pH POC ABG pCO2 POC ABG pO2 ABG pO2 ABG HCO3 ABG Base Excess ABG Hemoglobin Oxyhemoglobin Sodium 132 L Potassium 3.3 L Chloride 93.6 L Carbon Dioxide 17 L BUN 59 H Creatinine 2.7 H Glucose 121 H POC Glucose 122 H Lactic Acid Calcium 7.6 L Phosphorus Magnesium Direct Bilirubin AST ALT Alkaline Phosphatase Lactate Dehydrogenase Troponin T C-Reactive Protein Total Protein Albumin Prealbumin Triglycerides Cholesterol LDL Cholesterol Direct HDL Cholesterol Urine pH Urine WBC (Auto) > 182.0 H Urine Creatinine Urine Total Protein Fluid Total Protein Vancomycin Trough Rheumatoid Factor Complement C4 Miscellaneous Test Crossmatch 10/08/16 10/08/16 10/08/16 04:30 05:30 11:51 WBC RBC 5.15 H Hgb 14.4 H D Hct 44.5 H D MCV MCH MCHC RDW 19.5 H Plt Count 56 L Lymph % (Auto) [place] % (Auto) Lymph # [place] # Baso # Seg Neutrophils % Seg Neuts % (Manual) 24.0 L Lymphocytes % (Manual) 8.0 L Monocytes % (Manual) Eosinophils % (Manual) Basophils % (Manual) Nucleated RBC % 9.0 H Seg Neutrophils # Seg Neutrophils # Man Lymphocytes # (Manual) 0.7 L Monocytes # (Manual) Eosinophils # (Manual) Basophils # (Manual) PT INR Fibrinogen dRVVT Confirm Interp Factor V Activity POC ABG pH POC ABG pCO2 POC ABG pO2 ABG pO2 ABG HCO3 ABG Base Excess ABG Hemoglobin Oxyhemoglobin Sodium Potassium Chloride Carbon Dioxide BUN Creatinine Glucose POC Glucose 125 H 150 H Lactic Acid Calcium Phosphorus Magnesium Direct Bilirubin AST ALT Alkaline Phosphatase Lactate Dehydrogenase Troponin T C-Reactive Protein Total Protein Albumin Prealbumin Triglycerides Cholesterol LDL Cholesterol Direct HDL Cholesterol Urine pH Urine WBC (Auto) Urine Creatinine Urine Total Protein Fluid Total Protein Vancomycin Trough Rheumatoid Factor Complement C4 Miscellaneous Test Crossmatch 10/08/16 10/08/16 10/08/16 12:49 17:07 19:30 WBC RBC Hgb 7.1 L D Hct 22.4 L D MCV MCH MCHC RDW Plt Count Lymph % (Auto) [place] % (Auto) Lymph # [place] # Baso # Seg Neutrophils % Seg Neuts % (Manual) Lymphocytes % (Manual) Monocytes % (Manual) Eosinophils % (Manual) Basophils % (Manual) Nucleated RBC % Seg Neutrophils # Seg Neutrophils # Man Lymphocytes # (Manual) Monocytes # (Manual) Eosinophils # (Manual) Basophils # (Manual) PT INR Fibrinogen dRVVT Confirm Interp Factor V Activity POC ABG pH POC ABG pCO2 28.2 L POC ABG pO2 111 H ABG pO2 ABG HCO3 ABG Base Excess ABG Hemoglobin Oxyhemoglobin Sodium Potassium Chloride Carbon Dioxide BUN Creatinine Glucose POC Glucose 145 H Lactic Acid Calcium Phosphorus Magnesium Direct Bilirubin AST ALT Alkaline Phosphatase Lactate Dehydrogenase Troponin T C-Reactive Protein Total Protein Albumin Prealbumin Triglycerides Cholesterol LDL Cholesterol Direct HDL Cholesterol Urine pH Urine WBC (Auto) Urine Creatinine Urine Total Protein Fluid Total Protein Vancomycin Trough Rheumatoid Factor Complement C4 Miscellaneous Test Crossmatch 10/08/16 10/09/16 10/09/16 19:30 03:45 03:45 WBC 12.6 H RBC 2.36 L Hgb 6.7 L Hct 21.1 L MCV MCH MCHC RDW 19.5 H Plt Count 75 L Lymph % (Auto) [place] % (Auto) Lymph # [place] # Baso # Seg Neutrophils % Seg Neuts % (Manual) Lymphocytes % (Manual) Monocytes % (Manual) 10.0 H Eosinophils % (Manual) Basophils % (Manual) Nucleated RBC % 3.0 H Seg Neutrophils # Seg Neutrophils # Man Lymphocytes # (Manual) Monocytes # (Manual) 1.3 H Eosinophils # (Manual) Basophils # (Manual) PT 18.0 H INR 1.41 H Fibrinogen dRVVT Confirm Interp Factor V Activity POC ABG pH POC ABG pCO2 POC ABG pO2 ABG pO2 ABG HCO3 ABG Base Excess ABG Hemoglobin Oxyhemoglobin Sodium 135 L Potassium Chloride Carbon Dioxide 17 L BUN 81 H Creatinine 3.2 H Glucose 109 H POC Glucose Lactic Acid Calcium 7.4 L Phosphorus 4.60 H D Magnesium Direct Bilirubin AST ALT Alkaline Phosphatase Lactate Dehydrogenase Troponin T C-Reactive Protein Total Protein Albumin Prealbumin Triglycerides Cholesterol LDL Cholesterol Direct HDL Cholesterol Urine pH Urine WBC (Auto) Urine Creatinine Urine Total Protein Fluid Total Protein Vancomycin Trough Rheumatoid Factor Complement C4 Miscellaneous Test Crossmatch 10/09/16 10/09/16 10/09/16 03:45 05:14 07:20 WBC RBC Hgb Hct MCV MCH MCHC RDW Plt Count Lymph % (Auto) [place] % (Auto) Lymph # [place] # Baso # Seg Neutrophils % Seg Neuts % (Manual) Lymphocytes % (Manual) Monocytes % (Manual) Eosinophils % (Manual) Basophils % (Manual) Nucleated RBC % Seg Neutrophils # Seg Neutrophils # Man Lymphocytes # (Manual) Monocytes # (Manual) Eosinophils # (Manual) Basophils # (Manual) PT 19.0 H INR 1.51 H Fibrinogen dRVVT Confirm Interp Factor V Activity POC ABG pH POC ABG pCO2 POC ABG pO2 ABG pO2 ABG HCO3 ABG Base Excess ABG Hemoglobin Oxyhemoglobin Sodium Potassium Chloride Carbon Dioxide BUN Creatinine Glucose POC Glucose 151 H Lactic Acid Calcium Phosphorus Magnesium Direct Bilirubin AST ALT Alkaline Phosphatase Lactate Dehydrogenase Troponin T C-Reactive Protein Total Protein Albumin Prealbumin Triglycerides Cholesterol LDL Cholesterol Direct HDL Cholesterol Urine pH Urine WBC (Auto) Urine Creatinine Urine Total Protein Fluid Total Protein Vancomycin Trough Rheumatoid Factor Complement C4 Miscellaneous Test Crossmatch See Detail 10/09/16 10/09/16 10/09/16 11:46 16:20 16:43 WBC RBC Hgb 7.2 L Hct 22.2 L MCV MCH MCHC RDW Plt Count Lymph % (Auto) [place] % (Auto) Lymph # [place] # Baso # Seg Neutrophils % Seg Neuts % (Manual) Lymphocytes % (Manual) Monocytes % (Manual) Eosinophils % (Manual) Basophils % (Manual) Nucleated RBC % Seg Neutrophils # Seg Neutrophils # Man Lymphocytes # (Manual) Monocytes # (Manual) Eosinophils # (Manual) Basophils # (Manual) PT INR Fibrinogen dRVVT Confirm Interp Factor V Activity POC ABG pH POC ABG pCO2 POC ABG pO2 ABG pO2 ABG HCO3 ABG Base Excess ABG Hemoglobin Oxyhemoglobin Sodium Potassium Chloride Carbon Dioxide BUN Creatinine Glucose POC Glucose 133 H 141 H Lactic Acid Calcium Phosphorus Magnesium Direct Bilirubin AST ALT Alkaline Phosphatase Lactate Dehydrogenase Troponin T C-Reactive Protein Total Protein Albumin Prealbumin Triglycerides Cholesterol LDL Cholesterol Direct HDL Cholesterol Urine pH Urine WBC (Auto) Urine Creatinine Urine Total Protein Fluid Total Protein Vancomycin Trough Rheumatoid Factor Complement C4 Miscellaneous Test Crossmatch 10/10/16 10/10/16 10/10/16 05:00 05:00 11:19 WBC 18.5 H RBC 2.19 L Hgb 6.4 L Hct 19.6 L* MCV MCH MCHC RDW 19.3 H Plt Count 93 L Lymph % (Auto) [place] % (Auto) Lymph # [place] # Baso # Seg Neutrophils % Seg Neuts % (Manual) Lymphocytes % (Manual) 10.0 L Monocytes % (Manual) Eosinophils % (Manual) Basophils % (Manual) Nucleated RBC % 4.0 H Seg Neutrophils # Seg Neutrophils # Man 11.3 H Lymphocytes # (Manual) Monocytes # (Manual) Eosinophils # (Manual) Basophils # (Manual) PT INR Fibrinogen dRVVT Confirm Interp Factor V Activity POC ABG pH POC ABG pCO2 POC ABG pO2 ABG pO2 ABG HCO3 ABG Base Excess ABG Hemoglobin Oxyhemoglobin Sodium Potassium 5.7 H D Chloride Carbon Dioxide 16 L BUN 94 H Creatinine 3.1 H Glucose 131 H POC Glucose 153 H Lactic Acid Calcium 8.2 L Phosphorus 5.10 H Magnesium 2.40 H Direct Bilirubin 0.3 H AST ALT < 5 L Alkaline Phosphatase 319 H Lactate Dehydrogenase Troponin T C-Reactive Protein Total Protein 5.1 L Albumin 1.0 L Prealbumin Triglycerides Cholesterol LDL Cholesterol Direct HDL Cholesterol Urine pH Urine WBC (Auto) Urine Creatinine Urine Total Protein Fluid Total Protein Vancomycin Trough Rheumatoid Factor Complement C4 Miscellaneous Test Crossmatch 10/10/16 10/10/16 10/11/16 17:50 23:30 04:15 WBC RBC Hgb Hct MCV MCH MCHC RDW Plt Count Lymph % (Auto) [place] % (Auto) Lymph # [place] # Baso # Seg Neutrophils % Seg Neuts % (Manual) Lymphocytes % (Manual) Monocytes % (Manual) Eosinophils % (Manual) Basophils % (Manual) Nucleated RBC % Seg Neutrophils # Seg Neutrophils # Man Lymphocytes # (Manual) Monocytes # (Manual) Eosinophils # (Manual) Basophils # (Manual) PT INR Fibrinogen dRVVT Confirm Interp Factor V Activity POC ABG pH POC ABG pCO2 POC ABG pO2 ABG pO2 ABG HCO3 ABG Base Excess ABG Hemoglobin Oxyhemoglobin Sodium Potassium Chloride 96.4 L Carbon Dioxide 21 L BUN 57 H Creatinine 2.1 H Glucose 151 H POC Glucose 146 H 141 H Lactic Acid Calcium 8.3 L Phosphorus Magnesium Direct Bilirubin AST ALT Alkaline Phosphatase Lactate Dehydrogenase Troponin T C-Reactive Protein Total Protein Albumin Prealbumin Triglycerides Cholesterol LDL Cholesterol Direct HDL Cholesterol Urine pH Urine WBC (Auto) Urine Creatinine Urine Total Protein Fluid Total Protein Vancomycin Trough Rheumatoid Factor Complement C4 Miscellaneous Test Crossmatch 10/11/16 10/11/16 10/11/16 04:15 04:15 05:30 WBC 28.3 H RBC 3.12 L Hgb 9.3 L Hct 28.7 L D MCV MCH MCHC RDW 17.7 H Plt Count 128 L Lymph % (Auto) [place] % (Auto) Lymph # [place] # Baso # Seg Neutrophils % Seg Neuts % (Manual) Lymphocytes % (Manual) Monocytes % (Manual) Eosinophils % (Manual) Basophils % (Manual) Nucleated RBC % Seg Neutrophils # Seg Neutrophils # Man Lymphocytes # (Manual) Monocytes # (Manual) Eosinophils # (Manual) Basophils # (Manual) PT INR Fibrinogen dRVVT Confirm Interp Factor V Activity POC ABG pH POC ABG pCO2 POC ABG pO2 ABG pO2 ABG HCO3 ABG Base Excess ABG Hemoglobin Oxyhemoglobin Sodium Potassium Chloride Carbon Dioxide BUN Creatinine Glucose POC Glucose 167 H Lactic Acid Calcium Phosphorus Magnesium Direct Bilirubin AST ALT Alkaline Phosphatase Lactate Dehydrogenase Troponin T C-Reactive Protein 15.80 H Total Protein Albumin Prealbumin Triglycerides Cholesterol LDL Cholesterol Direct HDL Cholesterol Urine pH Urine WBC (Auto) Urine Creatinine Urine Total Protein Fluid Total Protein Vancomycin Trough Rheumatoid Factor Complement C4 Miscellaneous Test Crossmatch 10/11/16 10/11/16 10/11/16 11:40 15:49 23:57 WBC RBC Hgb Hct MCV MCH MCHC RDW Plt Count Lymph % (Auto) [place] % (Auto) Lymph # [place] # Baso # Seg Neutrophils % Seg Neuts % (Manual) Lymphocytes % (Manual) Monocytes % (Manual) Eosinophils % (Manual) Basophils % (Manual) Nucleated RBC % Seg Neutrophils # Seg Neutrophils # Man Lymphocytes # (Manual) Monocytes # (Manual) Eosinophils # (Manual) Basophils # (Manual) PT INR Fibrinogen dRVVT Confirm Interp Factor V Activity POC ABG pH POC ABG pCO2 POC ABG pO2 ABG pO2 ABG HCO3 ABG Base Excess ABG Hemoglobin Oxyhemoglobin Sodium Potassium Chloride Carbon Dioxide BUN Creatinine Glucose POC Glucose 139 H 168 H 161 H Lactic Acid Calcium Phosphorus Magnesium Direct Bilirubin AST ALT Alkaline Phosphatase Lactate Dehydrogenase Troponin T C-Reactive Protein Total Protein Albumin Prealbumin Triglycerides Cholesterol LDL Cholesterol Direct HDL Cholesterol Urine pH Urine WBC (Auto) Urine Creatinine Urine Total Protein Fluid Total Protein Vancomycin Trough Rheumatoid Factor Complement C4 Miscellaneous Test Crossmatch 10/12/16 10/12/16 10/12/16 04:40 04:40 05:44 WBC 22.5 H RBC 2.88 L Hgb 8.8 L Hct 26.8 L MCV MCH MCHC RDW 17.8 H Plt Count Lymph % (Auto) [place] % (Auto) Lymph # [place] # Baso # Seg Neutrophils % Seg Neuts % (Manual) Lymphocytes % (Manual) Monocytes % (Manual) Eosinophils % (Manual) Basophils % (Manual) Nucleated RBC % Seg Neutrophils # Seg Neutrophils # Man Lymphocytes # (Manual) Monocytes # (Manual) Eosinophils # (Manual) Basophils # (Manual) PT INR Fibrinogen dRVVT Confirm Interp Factor V Activity POC ABG pH POC ABG pCO2 POC ABG pO2 ABG pO2 ABG HCO3 ABG Base Excess ABG Hemoglobin Oxyhemoglobin Sodium 134 L Potassium Chloride 93.0 L Carbon Dioxide BUN 74 H Creatinine 2.5 H Glucose 137 H POC Glucose 158 H Lactic Acid Calcium 8.2 L Phosphorus Magnesium Direct Bilirubin AST ALT Alkaline Phosphatase Lactate Dehydrogenase Troponin T C-Reactive Protein Total Protein Albumin Prealbumin Triglycerides Cholesterol LDL Cholesterol Direct HDL Cholesterol Urine pH Urine WBC (Auto) Urine Creatinine Urine Total Protein Fluid Total Protein Vancomycin Trough Rheumatoid Factor Complement C4 Miscellaneous Test Crossmatch 10/12/16 10/12/16 10/12/16 12:27 18:18 23:46 WBC RBC Hgb Hct MCV MCH MCHC RDW Plt Count Lymph % (Auto) [place] % (Auto) Lymph # [place] # Baso # Seg Neutrophils % Seg Neuts % (Manual) Lymphocytes % (Manual) Monocytes % (Manual) Eosinophils % (Manual) Basophils % (Manual) Nucleated RBC % Seg Neutrophils # Seg Neutrophils # Man Lymphocytes # (Manual) Monocytes # (Manual) Eosinophils # (Manual) Basophils # (Manual) PT INR Fibrinogen dRVVT Confirm Interp Factor V Activity POC ABG pH POC ABG pCO2 POC ABG pO2 ABG pO2 ABG HCO3 ABG Base Excess ABG Hemoglobin Oxyhemoglobin Sodium Potassium Chloride Carbon Dioxide BUN Creatinine Glucose POC Glucose 153 H 140 H 150 H Lactic Acid Calcium Phosphorus Magnesium Direct Bilirubin AST ALT Alkaline Phosphatase Lactate Dehydrogenase Troponin T C-Reactive Protein Total Protein Albumin Prealbumin Triglycerides Cholesterol LDL Cholesterol Direct HDL Cholesterol Urine pH Urine WBC (Auto) Urine Creatinine Urine Total Protein Fluid Total Protein Vancomycin Trough Rheumatoid Factor Complement C4 Miscellaneous Test Crossmatch 10/13/16 10/13/16 10/13/16 06:22 09:20 12:29 WBC RBC Hgb Hct MCV MCH MCHC RDW Plt Count Lymph % (Auto) [place] % (Auto) Lymph # [place] # Baso # Seg Neutrophils % Seg Neuts % (Manual) Lymphocytes % (Manual) Monocytes % (Manual) Eosinophils % (Manual) Basophils % (Manual) Nucleated RBC % Seg Neutrophils # Seg Neutrophils # Man Lymphocytes # (Manual) Monocytes # (Manual) Eosinophils # (Manual) Basophils # (Manual) PT INR Fibrinogen dRVVT Confirm Interp Factor V Activity POC ABG pH POC ABG pCO2 POC ABG pO2 ABG pO2 ABG HCO3 ABG Base Excess ABG Hemoglobin Oxyhemoglobin Sodium Potassium Chloride Carbon Dioxide BUN Creatinine Glucose POC Glucose 165 H 193 H Lactic Acid Calcium Phosphorus Magnesium Direct Bilirubin AST ALT Alkaline Phosphatase Lactate Dehydrogenase Troponin T C-Reactive Protein Total Protein Albumin Prealbumin Triglycerides Cholesterol LDL Cholesterol Direct HDL Cholesterol Urine pH Urine WBC (Auto) Urine Creatinine Urine Total Protein Fluid Total Protein Vancomycin Trough Rheumatoid Factor Complement C4 Miscellaneous Test Flexitest 1 H Crossmatch 10/13/16 10/13/16 10/13/16 18:09 Unknown Unknown WBC 23.4 H RBC 2.83 L Hgb 8.7 L Hct 26.1 L MCV MCH MCHC RDW 18.1 H Plt Count Lymph % (Auto) [place] % (Auto) Lymph # [place] # Baso # Seg Neutrophils % Seg Neuts % (Manual) Lymphocytes % (Manual) Monocytes % (Manual) Eosinophils % (Manual) Basophils % (Manual) Nucleated RBC % Seg Neutrophils # Seg Neutrophils # Man Lymphocytes # (Manual) Monocytes # (Manual) Eosinophils # (Manual) Basophils # (Manual) PT INR Fibrinogen dRVVT Confirm Interp Factor V Activity POC ABG pH POC ABG pCO2 POC ABG pO2 ABG pO2 ABG HCO3 ABG Base Excess ABG Hemoglobin Oxyhemoglobin Sodium Potassium Chloride 95.8 L Carbon Dioxide BUN 82 H Creatinine 2.6 H Glucose 152 H POC Glucose 166 H Lactic Acid Calcium Phosphorus Magnesium Direct Bilirubin AST ALT Alkaline Phosphatase Lactate Dehydrogenase Troponin T C-Reactive Protein Total Protein Albumin Prealbumin Triglycerides Cholesterol LDL Cholesterol Direct HDL Cholesterol Urine pH Urine WBC (Auto) Urine Creatinine Urine Total Protein Fluid Total Protein Vancomycin Trough Rheumatoid Factor Complement C4 Miscellaneous Test Crossmatch 10/14/16 10/14/16 10/14/16 05:38 06:35 08:10 WBC 20.7 H RBC 2.81 L Hgb 8.4 L Hct 27.2 L MCV MCH MCHC RDW 19.4 H Plt Count Lymph % (Auto) [place] % (Auto) Lymph # [place] # Baso # Seg Neutrophils % Seg Neuts % (Manual) Lymphocytes % (Manual) Monocytes % (Manual) Eosinophils % (Manual) Basophils % (Manual) Nucleated RBC % Seg Neutrophils # Seg Neutrophils # Man Lymphocytes # (Manual) Monocytes # (Manual) Eosinophils # (Manual) Basophils # (Manual) PT INR Fibrinogen dRVVT Confirm Interp Factor V Activity POC ABG pH POC ABG pCO2 POC ABG pO2 ABG pO2 ABG HCO3 ABG Base Excess ABG Hemoglobin Oxyhemoglobin Sodium Potassium Chloride Carbon Dioxide BUN 58 H Creatinine 1.9 H Glucose 169 H POC Glucose 195 H Lactic Acid Calcium Phosphorus Magnesium Direct Bilirubin AST ALT Alkaline Phosphatase Lactate Dehydrogenase Troponin T C-Reactive Protein Total Protein Albumin Prealbumin Triglycerides Cholesterol LDL Cholesterol Direct HDL Cholesterol Urine pH Urine WBC (Auto) Urine Creatinine Urine Total Protein Fluid Total Protein Vancomycin Trough Rheumatoid Factor Complement C4 Miscellaneous Test Crossmatch 10/14/16 10/14/16 10/14/16 11:44 17:13 23:28 WBC RBC Hgb Hct MCV MCH MCHC RDW Plt Count Lymph % (Auto) [place] % (Auto) Lymph # [place] # Baso # Seg Neutrophils % Seg Neuts % (Manual) Lymphocytes % (Manual) Monocytes % (Manual) Eosinophils % (Manual) Basophils % (Manual) Nucleated RBC % Seg Neutrophils # Seg Neutrophils # Man Lymphocytes # (Manual) Monocytes # (Manual) Eosinophils # (Manual) Basophils # (Manual) PT INR Fibrinogen dRVVT Confirm Interp Factor V Activity POC ABG pH POC ABG pCO2 POC ABG pO2 ABG pO2 ABG HCO3 ABG Base Excess ABG Hemoglobin Oxyhemoglobin Sodium Potassium Chloride Carbon Dioxide BUN Creatinine Glucose POC Glucose 174 H 121 H 151 H Lactic Acid Calcium Phosphorus Magnesium Direct Bilirubin AST ALT Alkaline Phosphatase Lactate Dehydrogenase Troponin T C-Reactive Protein Total Protein Albumin Prealbumin Triglycerides Cholesterol LDL Cholesterol Direct HDL Cholesterol Urine pH Urine WBC (Auto) Urine Creatinine Urine Total Protein Fluid Total Protein Vancomycin Trough Rheumatoid Factor Complement C4 Miscellaneous Test Crossmatch 10/15/16 10/15/16 10/15/16 05:06 12:26 17:48 WBC RBC Hgb Hct MCV MCH MCHC RDW Plt Count Lymph % (Auto) [place] % (Auto) Lymph # [place] # Baso # Seg Neutrophils % Seg Neuts % (Manual) Lymphocytes % (Manual) Monocytes % (Manual) Eosinophils % (Manual) Basophils % (Manual) Nucleated RBC % Seg Neutrophils # Seg Neutrophils # Man Lymphocytes # (Manual) Monocytes # (Manual) Eosinophils # (Manual) Basophils # (Manual) PT INR Fibrinogen dRVVT Confirm Interp Factor V Activity POC ABG pH POC ABG pCO2 POC ABG pO2 ABG pO2 ABG HCO3 ABG Base Excess ABG Hemoglobin Oxyhemoglobin Sodium Potassium Chloride Carbon Dioxide BUN Creatinine Glucose POC Glucose 151 H 149 H 153 H Lactic Acid Calcium Phosphorus Magnesium Direct Bilirubin AST ALT Alkaline Phosphatase Lactate Dehydrogenase Troponin T C-Reactive Protein Total Protein Albumin Prealbumin Triglycerides Cholesterol LDL Cholesterol Direct HDL Cholesterol Urine pH Urine WBC (Auto) Urine Creatinine Urine Total Protein Fluid Total Protein Vancomycin Trough Rheumatoid Factor Complement C4 Miscellaneous Test Crossmatch 10/15/16 10/15/16 10/16/16 Unknown Unknown 00:02 WBC 23.4 H RBC 2.78 L Hgb 8.5 L Hct 25.7 L MCV MCH MCHC RDW 18.7 H Plt Count Lymph % (Auto) [place] % (Auto) Lymph # [place] # Baso # Seg Neutrophils % Seg Neuts % (Manual) Lymphocytes % (Manual) Monocytes % (Manual) Eosinophils % (Manual) Basophils % (Manual) Nucleated RBC % Seg Neutrophils # Seg Neutrophils # Man Lymphocytes # (Manual) Monocytes # (Manual) Eosinophils # (Manual) Basophils # (Manual) PT INR Fibrinogen dRVVT Confirm Interp Factor V Activity POC ABG pH POC ABG pCO2 POC ABG pO2 ABG pO2 ABG HCO3 ABG Base Excess ABG Hemoglobin Oxyhemoglobin Sodium Potassium Chloride Carbon Dioxide BUN 73 H Creatinine 2.3 H Glucose 120 H POC Glucose 137 H Lactic Acid Calcium Phosphorus Magnesium Direct Bilirubin AST ALT Alkaline Phosphatase Lactate Dehydrogenase Troponin T C-Reactive Protein Total Protein Albumin Prealbumin Triglycerides Cholesterol LDL Cholesterol Direct HDL Cholesterol Urine pH Urine WBC (Auto) Urine Creatinine Urine Total Protein Fluid Total Protein Vancomycin Trough Rheumatoid Factor Complement C4 Miscellaneous Test Crossmatch 10/16/16 10/16/16 10/16/16 05:44 06:25 06:25 WBC 22.5 H RBC 2.76 L Hgb 8.3 L Hct 25.2 L MCV MCH MCHC RDW 18.3 H Plt Count Lymph % (Auto) [place] % (Auto) Lymph # [place] # Baso # Seg Neutrophils % Seg Neuts % (Manual) Lymphocytes % (Manual) Monocytes % (Manual) Eosinophils % (Manual) Basophils % (Manual) Nucleated RBC % Seg Neutrophils # Seg Neutrophils # Man Lymphocytes # (Manual) Monocytes # (Manual) Eosinophils # (Manual) Basophils # (Manual) PT INR Fibrinogen dRVVT Confirm Interp Factor V Activity POC ABG pH POC ABG pCO2 POC ABG pO2 ABG pO2 ABG HCO3 ABG Base Excess ABG Hemoglobin Oxyhemoglobin Sodium Potassium Chloride Carbon Dioxide BUN 92 H Creatinine 3.0 H Glucose 138 H POC Glucose 110 H Lactic Acid Calcium Phosphorus Magnesium Direct Bilirubin AST ALT Alkaline Phosphatase Lactate Dehydrogenase Troponin T C-Reactive Protein Total Protein Albumin Prealbumin Triglycerides Cholesterol LDL Cholesterol Direct HDL Cholesterol Urine pH Urine WBC (Auto) Urine Creatinine Urine Total Protein Fluid Total Protein Vancomycin Trough Rheumatoid Factor Complement C4 Miscellaneous Test Crossmatch 10/16/16 10/16/16 10/16/16 11:27 11:48 17:36 WBC RBC Hgb Hct MCV MCH MCHC RDW Plt Count Lymph % (Auto) [place] % (Auto) Lymph # [place] # Baso # Seg Neutrophils % Seg Neuts % (Manual) Lymphocytes % (Manual) Monocytes % (Manual) Eosinophils % (Manual) Basophils % (Manual) Nucleated RBC % Seg Neutrophils # Seg Neutrophils # Man Lymphocytes # (Manual) Monocytes # (Manual) Eosinophils # (Manual) Basophils # (Manual) PT INR Fibrinogen dRVVT Confirm Interp Factor V Activity POC ABG pH 7.582 H POC ABG pCO2 27.4 L POC ABG pO2 110 H ABG pO2 ABG HCO3 ABG Base Excess ABG Hemoglobin Oxyhemoglobin Sodium Potassium Chloride Carbon Dioxide BUN Creatinine Glucose POC Glucose 121 H 133 H Lactic Acid Calcium Phosphorus Magnesium Direct Bilirubin AST ALT Alkaline Phosphatase Lactate Dehydrogenase Troponin T C-Reactive Protein Total Protein Albumin Prealbumin Triglycerides Cholesterol LDL Cholesterol Direct HDL Cholesterol Urine pH Urine WBC (Auto) Urine Creatinine Urine Total Protein Fluid Total Protein Vancomycin Trough Rheumatoid Factor Complement C4 Miscellaneous Test Crossmatch 10/16/16 10/17/16 10/17/16 20:48 04:24 04:24 WBC 21.4 H RBC 2.72 L Hgb 8.0 L Hct 25.2 L MCV MCH MCHC RDW 18.0 H Plt Count Lymph % (Auto) [place] % (Auto) Lymph # [place] # Baso # Seg Neutrophils % Seg Neuts % (Manual) Lymphocytes % (Manual) Monocytes % (Manual) Eosinophils % (Manual) Basophils % (Manual) Nucleated RBC % Seg Neutrophils # Seg Neutrophils # Man Lymphocytes # (Manual) Monocytes # (Manual) Eosinophils # (Manual) Basophils # (Manual) PT INR Fibrinogen dRVVT Confirm Interp Factor V Activity POC ABG pH 7.561 H POC ABG pCO2 24.4 L POC ABG pO2 77 L ABG pO2 ABG HCO3 ABG Base Excess ABG Hemoglobin Oxyhemoglobin Sodium 148 H Potassium Chloride Carbon Dioxide BUN 104 H Creatinine 3.0 H Glucose 149 H POC Glucose Lactic Acid Calcium Phosphorus Magnesium Direct Bilirubin AST ALT Alkaline Phosphatase 138 H Lactate Dehydrogenase Troponin T C-Reactive Protein Total Protein 6.2 L Albumin 1.5 L Prealbumin Triglycerides Cholesterol LDL Cholesterol Direct HDL Cholesterol Urine pH Urine WBC (Auto) Urine Creatinine Urine Total Protein Fluid Total Protein Vancomycin Trough Rheumatoid Factor Complement C4 Miscellaneous Test Crossmatch 10/17/16 10/17/16 10/17/16 06:02 12:17 17:14 WBC RBC Hgb Hct MCV MCH MCHC RDW Plt Count Lymph % (Auto) [place] % (Auto) Lymph # [place] # Baso # Seg Neutrophils % Seg Neuts % (Manual) Lymphocytes % (Manual) Monocytes % (Manual) Eosinophils % (Manual) Basophils % (Manual) Nucleated RBC % Seg Neutrophils # Seg Neutrophils # Man Lymphocytes # (Manual) Monocytes # (Manual) Eosinophils # (Manual) Basophils # (Manual) PT INR Fibrinogen dRVVT Confirm Interp Factor V Activity POC ABG pH POC ABG pCO2 POC ABG pO2 ABG pO2 ABG HCO3 ABG Base Excess ABG Hemoglobin Oxyhemoglobin Sodium Potassium Chloride Carbon Dioxide BUN Creatinine Glucose POC Glucose 170 H 167 H 126 H Lactic Acid Calcium Phosphorus Magnesium Direct Bilirubin AST ALT Alkaline Phosphatase Lactate Dehydrogenase Troponin T C-Reactive Protein Total Protein Albumin Prealbumin Triglycerides Cholesterol LDL Cholesterol Direct HDL Cholesterol Urine pH Urine WBC (Auto) Urine Creatinine Urine Total Protein Fluid Total Protein Vancomycin Trough Rheumatoid Factor Complement C4 Miscellaneous Test Crossmatch 10/17/16 10/18/16 10/18/16 23:17 04:00 04:00 WBC 20.7 H RBC 2.47 L Hgb 7.4 L Hct 22.9 L MCV MCH MCHC RDW 17.5 H Plt Count Lymph % (Auto) [place] % (Auto) Lymph # [place] # Baso # Seg Neutrophils % Seg Neuts % (Manual) Lymphocytes % (Manual) Monocytes % (Manual) Eosinophils % (Manual) Basophils % (Manual) Nucleated RBC % Seg Neutrophils # Seg Neutrophils # Man Lymphocytes # (Manual) Monocytes # (Manual) Eosinophils # (Manual) Basophils # (Manual) PT INR Fibrinogen dRVVT Confirm Interp Factor V Activity POC ABG pH POC ABG pCO2 POC ABG pO2 ABG pO2 ABG HCO3 ABG Base Excess ABG Hemoglobin Oxyhemoglobin Sodium 149 H Potassium Chloride 107.9 H Carbon Dioxide 20 L BUN 117 H Creatinine 3.2 H Glucose 119 H POC Glucose 121 H Lactic Acid Calcium Phosphorus Magnesium Direct Bilirubin AST ALT Alkaline Phosphatase Lactate Dehydrogenase Troponin T C-Reactive Protein Total Protein Albumin Prealbumin Triglycerides Cholesterol LDL Cholesterol Direct HDL Cholesterol Urine pH Urine WBC (Auto) Urine Creatinine Urine Total Protein Fluid Total Protein Vancomycin Trough Rheumatoid Factor Complement C4 Miscellaneous Test Crossmatch 10/18/16 10/18/16 10/18/16 05:23 10:46 17:30 WBC RBC Hgb Hct MCV MCH MCHC RDW Plt Count Lymph % (Auto) [place] % (Auto) Lymph # [place] # Baso # Seg Neutrophils % Seg Neuts % (Manual) Lymphocytes % (Manual) Monocytes % (Manual) Eosinophils % (Manual) Basophils % (Manual) Nucleated RBC % Seg Neutrophils # Seg Neutrophils # Man Lymphocytes # (Manual) Monocytes # (Manual) Eosinophils # (Manual) Basophils # (Manual) PT INR Fibrinogen dRVVT Confirm Interp Factor V Activity POC ABG pH POC ABG pCO2 POC ABG pO2 ABG pO2 ABG HCO3 ABG Base Excess ABG Hemoglobin Oxyhemoglobin Sodium Potassium Chloride Carbon Dioxide BUN Creatinine Glucose POC Glucose 119 H 155 H 124 H Lactic Acid Calcium Phosphorus Magnesium Direct Bilirubin AST ALT Alkaline Phosphatase Lactate Dehydrogenase Troponin T C-Reactive Protein Total Protein Albumin Prealbumin Triglycerides Cholesterol LDL Cholesterol Direct HDL Cholesterol Urine pH Urine WBC (Auto) Urine Creatinine Urine Total Protein Fluid Total Protein Vancomycin Trough Rheumatoid Factor Complement C4 Miscellaneous Test Crossmatch 10/19/16 10/19/16 10/19/16 04:00 04:00 05:25 WBC 17.4 H RBC 2.54 L Hgb 7.7 L Hct 23.6 L MCV MCH MCHC RDW 17.3 H Plt Count Lymph % (Auto) [place] % (Auto) Lymph # [place] # Baso # Seg Neutrophils % Seg Neuts % (Manual) Lymphocytes % (Manual) Monocytes % (Manual) Eosinophils % (Manual) Basophils % (Manual) Nucleated RBC % Seg Neutrophils # Seg Neutrophils # Man Lymphocytes # (Manual) Monocytes # (Manual) Eosinophils # (Manual) Basophils # (Manual) PT INR Fibrinogen dRVVT Confirm Interp Factor V Activity POC ABG pH POC ABG pCO2 POC ABG pO2 ABG pO2 ABG HCO3 ABG Base Excess ABG Hemoglobin Oxyhemoglobin Sodium Potassium Chloride Carbon Dioxide BUN 72 H Creatinine 2.1 H Glucose 116 H POC Glucose 119 H Lactic Acid Calcium Phosphorus Magnesium Direct Bilirubin AST ALT Alkaline Phosphatase Lactate Dehydrogenase Troponin T C-Reactive Protein Total Protein Albumin Prealbumin Triglycerides Cholesterol LDL Cholesterol Direct HDL Cholesterol Urine pH Urine WBC (Auto) Urine Creatinine Urine Total Protein Fluid Total Protein Vancomycin Trough Rheumatoid Factor Complement C4 Miscellaneous Test Crossmatch 10/19/16 10/19/16 10/20/16 11:46 23:59 06:00 WBC RBC Hgb Hct MCV MCH MCHC RDW Plt Count Lymph % (Auto) [place] % (Auto) Lymph # [place] # Baso # Seg Neutrophils % Seg Neuts % (Manual) Lymphocytes % (Manual) Monocytes % (Manual) Eosinophils % (Manual) Basophils % (Manual) Nucleated RBC % Seg Neutrophils # Seg Neutrophils # Man Lymphocytes # (Manual) Monocytes # (Manual) Eosinophils # (Manual) Basophils # (Manual) PT INR Fibrinogen dRVVT Confirm Interp Factor V Activity POC ABG pH POC ABG pCO2 POC ABG pO2 ABG pO2 ABG HCO3 ABG Base Excess ABG Hemoglobin Oxyhemoglobin Sodium Potassium Chloride Carbon Dioxide 17 L BUN 94 H Creatinine 2.7 H Glucose POC Glucose 116 H 117 H Lactic Acid Calcium Phosphorus Magnesium Direct Bilirubin AST ALT Alkaline Phosphatase Lactate Dehydrogenase Troponin T C-Reactive Protein Total Protein Albumin Prealbumin Triglycerides Cholesterol LDL Cholesterol Direct HDL Cholesterol Urine pH Urine WBC (Auto) Urine Creatinine Urine Total Protein Fluid Total Protein Vancomycin Trough Rheumatoid Factor Complement C4 Miscellaneous Test Crossmatch 10/20/16 10/20/16 10/20/16 06:00 11:49 16:00 WBC 19.7 H RBC 2.51 L Hgb 7.7 L Hct 23.5 L MCV MCH MCHC RDW 17.5 H Plt Count Lymph % (Auto) [place] % (Auto) Lymph # [place] # Baso # Seg Neutrophils % Seg Neuts % (Manual) Lymphocytes % (Manual) Monocytes % (Manual) Eosinophils % (Manual) Basophils % (Manual) Nucleated RBC % Seg Neutrophils # Seg Neutrophils # Man Lymphocytes # (Manual) Monocytes # (Manual) Eosinophils # (Manual) Basophils # (Manual) PT INR Fibrinogen dRVVT Confirm Interp Factor V Activity POC ABG pH POC ABG pCO2 POC ABG pO2 ABG pO2 ABG HCO3 ABG Base Excess ABG Hemoglobin Oxyhemoglobin Sodium Potassium Chloride Carbon Dioxide BUN Creatinine Glucose POC Glucose 117 H Lactic Acid Calcium Phosphorus Magnesium Direct Bilirubin AST ALT Alkaline Phosphatase Lactate Dehydrogenase Troponin T C-Reactive Protein Total Protein Albumin Prealbumin Triglycerides Cholesterol LDL Cholesterol Direct HDL Cholesterol Urine pH Urine WBC (Auto) Urine Creatinine Urine Total Protein Fluid Total Protein Vancomycin Trough Rheumatoid Factor Complement C4 Miscellaneous Test Flexitest 1 H Crossmatch 10/20/16 10/20/16 10/21/16 18:36 23:39 04:00 WBC RBC Hgb Hct MCV MCH MCHC RDW Plt Count Lymph % (Auto) [place] % (Auto) Lymph # [place] # Baso # Seg Neutrophils % Seg Neuts % (Manual) Lymphocytes % (Manual) Monocytes % (Manual) Eosinophils % (Manual) Basophils % (Manual) Nucleated RBC % Seg Neutrophils # Seg Neutrophils # Man Lymphocytes # (Manual) Monocytes # (Manual) Eosinophils # (Manual) Basophils # (Manual) PT INR Fibrinogen dRVVT Confirm Interp Factor V Activity POC ABG pH POC ABG pCO2 POC ABG pO2 ABG pO2 ABG HCO3 ABG Base Excess ABG Hemoglobin Oxyhemoglobin Sodium Potassium 5.4 H D Chloride Carbon Dioxide 15 L BUN 110 H Creatinine 3.0 H Glucose POC Glucose 127 H 114 H Lactic Acid Calcium Phosphorus Magnesium Direct Bilirubin AST ALT Alkaline Phosphatase Lactate Dehydrogenase Troponin T C-Reactive Protein Total Protein Albumin Prealbumin Triglycerides Cholesterol LDL Cholesterol Direct HDL Cholesterol Urine pH Urine WBC (Auto) Urine Creatinine Urine Total Protein Fluid Total Protein Vancomycin Trough Rheumatoid Factor Complement C4 Miscellaneous Test Crossmatch 10/21/16 10/21/16 10/22/16 05:54 23:46 05:18 WBC RBC Hgb Hct MCV MCH MCHC RDW Plt Count Lymph % (Auto) [place] % (Auto) Lymph # [place] # Baso # Seg Neutrophils % Seg Neuts % (Manual) Lymphocytes % (Manual) Monocytes % (Manual) Eosinophils % (Manual) Basophils % (Manual) Nucleated RBC % Seg Neutrophils # Seg Neutrophils # Man Lymphocytes # (Manual) Monocytes # (Manual) Eosinophils # (Manual) Basophils # (Manual) PT INR Fibrinogen dRVVT Confirm Interp Factor V Activity POC ABG pH POC ABG pCO2 POC ABG pO2 ABG pO2 ABG HCO3 ABG Base Excess ABG Hemoglobin Oxyhemoglobin Sodium Potassium Chloride Carbon Dioxide BUN Creatinine Glucose POC Glucose 119 H 108 H 109 H Lactic Acid Calcium Phosphorus Magnesium Direct Bilirubin AST ALT Alkaline Phosphatase Lactate Dehydrogenase Troponin T C-Reactive Protein Total Protein Albumin Prealbumin Triglycerides Cholesterol LDL Cholesterol Direct HDL Cholesterol Urine pH Urine WBC (Auto) Urine Creatinine Urine Total Protein Fluid Total Protein Vancomycin Trough Rheumatoid Factor Complement C4 Miscellaneous Test Crossmatch 10/22/16 10/22/16 10/22/16 06:40 06:40 06:40 WBC 14.0 H RBC 2.03 L Hgb 7.0 L Hct 20.5 L MCV 98 H MCH 34 H MCHC 35 H RDW 17.8 H Plt Count Lymph % (Auto) [place] % (Auto) 9.9 H Lymph # [place] # 1.4 H Baso # 0.2 H Seg Neutrophils % 72.0 H Seg Neuts % (Manual) Lymphocytes % (Manual) Monocytes % (Manual) Eosinophils % (Manual) Basophils % (Manual) Nucleated RBC % Seg Neutrophils # 10.0 H Seg Neutrophils # Man Lymphocytes # (Manual) Monocytes # (Manual) Eosinophils # (Manual) Basophils # (Manual) PT INR Fibrinogen dRVVT Confirm Interp Factor V Activity POC ABG pH POC ABG pCO2 POC ABG pO2 ABG pO2 ABG HCO3 ABG Base Excess ABG Hemoglobin Oxyhemoglobin Sodium 130 L D Potassium Chloride 92.4 L Carbon Dioxide 20 L BUN 50 H Creatinine 1.6 H Glucose 589 H* POC Glucose Lactic Acid Calcium 7.8 L D Phosphorus Magnesium 1.60 L Direct Bilirubin AST ALT Alkaline Phosphatase Lactate Dehydrogenase Troponin T C-Reactive Protein Total Protein Albumin Prealbumin Triglycerides Cholesterol LDL Cholesterol Direct HDL Cholesterol Urine pH Urine WBC (Auto) Urine Creatinine Urine Total Protein Fluid Total Protein Vancomycin Trough Rheumatoid Factor Complement C4 Miscellaneous Test Crossmatch 10/22/16 10/22/16 10/22/16 11:39 16:44 23:36 WBC RBC Hgb Hct MCV MCH MCHC RDW Plt Count Lymph % (Auto) [place] % (Auto) Lymph # [place] # Baso # Seg Neutrophils % Seg Neuts % (Manual) Lymphocytes % (Manual) Monocytes % (Manual) Eosinophils % (Manual) Basophils % (Manual) Nucleated RBC % Seg Neutrophils # Seg Neutrophils # Man Lymphocytes # (Manual) Monocytes # (Manual) Eosinophils # (Manual) Basophils # (Manual) PT INR Fibrinogen dRVVT Confirm Interp Factor V Activity POC ABG pH POC ABG pCO2 POC ABG pO2 ABG pO2 ABG HCO3 ABG Base Excess ABG Hemoglobin Oxyhemoglobin Sodium Potassium Chloride Carbon Dioxide BUN Creatinine Glucose POC Glucose 142 H 163 H 123 H Lactic Acid Calcium Phosphorus Magnesium Direct Bilirubin AST ALT Alkaline Phosphatase Lactate Dehydrogenase Troponin T C-Reactive Protein Total Protein Albumin Prealbumin Triglycerides Cholesterol LDL Cholesterol Direct HDL Cholesterol Urine pH Urine WBC (Auto) Urine Creatinine Urine Total Protein Fluid Total Protein Vancomycin Trough Rheumatoid Factor Complement C4 Miscellaneous Test Crossmatch 10/23/16 10/23/16 10/23/16 04:58 06:00 12:12 WBC RBC Hgb Hct MCV MCH MCHC RDW Plt Count Lymph % (Auto) [place] % (Auto) Lymph # [place] # Baso # Seg Neutrophils % Seg Neuts % (Manual) Lymphocytes % (Manual) Monocytes % (Manual) Eosinophils % (Manual) Basophils % (Manual) Nucleated RBC % Seg Neutrophils # Seg Neutrophils # Man Lymphocytes # (Manual) Monocytes # (Manual) Eosinophils # (Manual) Basophils # (Manual) PT INR Fibrinogen dRVVT Confirm Interp Factor V Activity POC ABG pH POC ABG pCO2 POC ABG pO2 ABG pO2 ABG HCO3 ABG Base Excess ABG Hemoglobin Oxyhemoglobin Sodium 133 L Potassium 3.5 L Chloride 96.1 L Carbon Dioxide 18 L BUN 76 H Creatinine 2.1 H Glucose POC Glucose 133 H 138 H Lactic Acid Calcium 8.3 L Phosphorus Magnesium Direct Bilirubin AST ALT Alkaline Phosphatase Lactate Dehydrogenase Troponin T C-Reactive Protein Total Protein Albumin Prealbumin Triglycerides Cholesterol LDL Cholesterol Direct HDL Cholesterol Urine pH Urine WBC (Auto) Urine Creatinine Urine Total Protein Fluid Total Protein Vancomycin Trough Rheumatoid Factor Complement C4 Miscellaneous Test Crossmatch 10/23/16 10/23/16 10/24/16 16:53 23:37 04:00 WBC RBC Hgb Hct MCV MCH MCHC RDW Plt Count Lymph % (Auto) [place] % (Auto) Lymph # [place] # Baso # Seg Neutrophils % Seg Neuts % (Manual) Lymphocytes % (Manual) Monocytes % (Manual) Eosinophils % (Manual) Basophils % (Manual) Nucleated RBC % Seg Neutrophils # Seg Neutrophils # Man Lymphocytes # (Manual) Monocytes # (Manual) Eosinophils # (Manual) Basophils # (Manual) PT INR Fibrinogen dRVVT Confirm Interp Factor V Activity POC ABG pH POC ABG pCO2 POC ABG pO2 ABG pO2 ABG HCO3 ABG Base Excess ABG Hemoglobin Oxyhemoglobin Sodium 131 L Potassium Chloride 94.5 L Carbon Dioxide 19 L BUN 97 H Creatinine 2.6 H Glucose 110 H POC Glucose 125 H 123 H Lactic Acid Calcium 8.3 L Phosphorus Magnesium Direct Bilirubin AST ALT Alkaline Phosphatase Lactate Dehydrogenase Troponin T C-Reactive Protein Total Protein Albumin Prealbumin Triglycerides Cholesterol LDL Cholesterol Direct HDL Cholesterol Urine pH Urine WBC (Auto) Urine Creatinine Urine Total Protein Fluid Total Protein Vancomycin Trough Rheumatoid Factor Complement C4 Miscellaneous Test Crossmatch 10/24/16 10/24/16 10/24/16 07:49 11:39 17:52 WBC RBC Hgb 6.0 L Hct 19.7 L* MCV MCH MCHC RDW Plt Count Lymph % (Auto) [place] % (Auto) Lymph # [place] # Baso # Seg Neutrophils % Seg Neuts % (Manual) Lymphocytes % (Manual) Monocytes % (Manual) Eosinophils % (Manual) Basophils % (Manual) Nucleated RBC % Seg Neutrophils # Seg Neutrophils # Man Lymphocytes # (Manual) Monocytes # (Manual) Eosinophils # (Manual) Basophils # (Manual) PT INR Fibrinogen dRVVT Confirm Interp Factor V Activity POC ABG pH POC ABG pCO2 POC ABG pO2 ABG pO2 ABG HCO3 ABG Base Excess ABG Hemoglobin Oxyhemoglobin Sodium Potassium Chloride Carbon Dioxide BUN Creatinine Glucose POC Glucose 106 H 158 H Lactic Acid Calcium Phosphorus Magnesium Direct Bilirubin AST ALT Alkaline Phosphatase Lactate Dehydrogenase Troponin T C-Reactive Protein Total Protein Albumin Prealbumin Triglycerides Cholesterol LDL Cholesterol Direct HDL Cholesterol Urine pH Urine WBC (Auto) Urine Creatinine Urine Total Protein Fluid Total Protein Vancomycin Trough Rheumatoid Factor Complement C4 Miscellaneous Test Crossmatch 10/24/16 10/24/16 10/24/16 20:00 22:27 Unknown WBC RBC Hgb 9.4 L D Hct 27.5 L D MCV MCH MCHC RDW Plt Count Lymph % (Auto) [place] % (Auto) Lymph # [place] # Baso # Seg Neutrophils % Seg Neuts % (Manual) Lymphocytes % (Manual) Monocytes % (Manual) Eosinophils % (Manual) Basophils % (Manual) Nucleated RBC % Seg Neutrophils # Seg Neutrophils # Man Lymphocytes # (Manual) Monocytes # (Manual) Eosinophils # (Manual) Basophils # (Manual) PT INR Fibrinogen dRVVT Confirm Interp Factor V Activity POC ABG pH POC ABG pCO2 POC ABG pO2 ABG pO2 ABG HCO3 ABG Base Excess ABG Hemoglobin Oxyhemoglobin Sodium Potassium Chloride Carbon Dioxide BUN Creatinine Glucose POC Glucose 125 H Lactic Acid Calcium Phosphorus Magnesium Direct Bilirubin AST ALT Alkaline Phosphatase Lactate Dehydrogenase Troponin T C-Reactive Protein Total Protein Albumin Prealbumin Triglycerides Cholesterol LDL Cholesterol Direct HDL Cholesterol Urine pH Urine WBC (Auto) Urine Creatinine Urine Total Protein Fluid Total Protein Vancomycin Trough Rheumatoid Factor Complement C4 Miscellaneous Test Crossmatch See Detail 10/25/16 10/25/16 10/25/16 04:00 04:00 04:00 WBC 14.2 H RBC 2.98 L Hgb 9.0 L Hct 26.2 L MCV MCH MCHC RDW 16.6 H Plt Count Lymph % (Auto) [place] % (Auto) 10.7 H Lymph # [place] # 1.5 H Baso # Seg Neutrophils % 73.6 H Seg Neuts % (Manual) Lymphocytes % (Manual) Monocytes % (Manual) Eosinophils % (Manual) Basophils % (Manual) Nucleated RBC % Seg Neutrophils # 10.5 H Seg Neutrophils # Man Lymphocytes # (Manual) Monocytes # (Manual) Eosinophils # (Manual) Basophils # (Manual) PT INR Fibrinogen dRVVT Confirm Interp Factor V Activity POC ABG pH POC ABG pCO2 POC ABG pO2 ABG pO2 ABG HCO3 ABG Base Excess ABG Hemoglobin Oxyhemoglobin Sodium 132 L Potassium Chloride 94.7 L Carbon Dioxide BUN 51 H Creatinine 1.6 H Glucose 130 H POC Glucose Lactic Acid Calcium 8.3 L Phosphorus 1.60 L D Magnesium Direct Bilirubin AST ALT Alkaline Phosphatase Lactate Dehydrogenase Troponin T C-Reactive Protein Total Protein Albumin Prealbumin Triglycerides Cholesterol LDL Cholesterol Direct HDL Cholesterol Urine pH Urine WBC (Auto) Urine Creatinine Urine Total Protein Fluid Total Protein Vancomycin Trough Rheumatoid Factor Complement C4 Miscellaneous Test Crossmatch 10/25/16 10/25/16 10/25/16 04:32 11:48 17:22 WBC RBC Hgb Hct MCV MCH MCHC RDW Plt Count Lymph % (Auto) [place] % (Auto) Lymph # [place] # Baso # Seg Neutrophils % Seg Neuts % (Manual) Lymphocytes % (Manual) Monocytes % (Manual) Eosinophils % (Manual) Basophils % (Manual) Nucleated RBC % Seg Neutrophils # Seg Neutrophils # Man Lymphocytes # (Manual) Monocytes # (Manual) Eosinophils # (Manual) Basophils # (Manual) PT INR Fibrinogen dRVVT Confirm Interp Factor V Activity POC ABG pH POC ABG pCO2 POC ABG pO2 ABG pO2 ABG HCO3 ABG Base Excess ABG Hemoglobin Oxyhemoglobin Sodium Potassium Chloride Carbon Dioxide BUN Creatinine Glucose POC Glucose 124 H 171 H 120 H Lactic Acid Calcium Phosphorus Magnesium Direct Bilirubin AST ALT Alkaline Phosphatase Lactate Dehydrogenase Troponin T C-Reactive Protein Total Protein Albumin Prealbumin Triglycerides Cholesterol LDL Cholesterol Direct HDL Cholesterol Urine pH Urine WBC (Auto) Urine Creatinine Urine Total Protein Fluid Total Protein Vancomycin Trough Rheumatoid Factor Complement C4 Miscellaneous Test Crossmatch 10/26/16 10/26/16 10/26/16 04:54 07:06 07:06 WBC 16.9 H RBC 3.06 L Hgb 9.1 L Hct 26.9 L MCV MCH MCHC RDW 16.9 H Plt Count Lymph % (Auto) [place] % (Auto) Lymph # [place] # Baso # Seg Neutrophils % Seg Neuts % (Manual) 71.0 H Lymphocytes % (Manual) 5.0 L Monocytes % (Manual) 12.0 H Eosinophils % (Manual) Basophils % (Manual) Nucleated RBC % Seg Neutrophils # Seg Neutrophils # Man 12.0 H Lymphocytes # (Manual) 0.8 L Monocytes # (Manual) 2.0 H Eosinophils # (Manual) Basophils # (Manual) PT INR Fibrinogen dRVVT Confirm Interp Factor V Activity POC ABG pH POC ABG pCO2 POC ABG pO2 ABG pO2 ABG HCO3 ABG Base Excess ABG Hemoglobin Oxyhemoglobin Sodium 135 L Potassium Chloride 97.1 L Carbon Dioxide BUN 73 H Creatinine 2.2 H Glucose 117 H POC Glucose 123 H Lactic Acid Calcium Phosphorus 1.70 L Magnesium Direct Bilirubin AST ALT Alkaline Phosphatase Lactate Dehydrogenase Troponin T C-Reactive Protein Total Protein Albumin Prealbumin Triglycerides Cholesterol LDL Cholesterol Direct HDL Cholesterol Urine pH Urine WBC (Auto) Urine Creatinine Urine Total Protein Fluid Total Protein Vancomycin Trough Rheumatoid Factor Complement C4 Miscellaneous Test Crossmatch 10/26/16 10/26/16 10/26/16 12:12 17:29 23:42 WBC RBC Hgb Hct MCV MCH MCHC RDW Plt Count Lymph % (Auto) [place] % (Auto) Lymph # [place] # Baso # Seg Neutrophils % Seg Neuts % (Manual) Lymphocytes % (Manual) Monocytes % (Manual) Eosinophils % (Manual) Basophils % (Manual) Nucleated RBC % Seg Neutrophils # Seg Neutrophils # Man Lymphocytes # (Manual) Monocytes # (Manual) Eosinophils # (Manual) Basophils # (Manual) PT INR Fibrinogen dRVVT Confirm Interp Factor V Activity POC ABG pH POC ABG pCO2 POC ABG pO2 ABG pO2 ABG HCO3 ABG Base Excess ABG Hemoglobin Oxyhemoglobin Sodium Potassium Chloride Carbon Dioxide BUN Creatinine Glucose POC Glucose 126 H 161 H 118 H Lactic Acid Calcium Phosphorus Magnesium Direct Bilirubin AST ALT Alkaline Phosphatase Lactate Dehydrogenase Troponin T C-Reactive Protein Total Protein Albumin Prealbumin Triglycerides Cholesterol LDL Cholesterol Direct HDL Cholesterol Urine pH Urine WBC (Auto) Urine Creatinine Urine Total Protein Fluid Total Protein Vancomycin Trough Rheumatoid Factor Complement C4 Miscellaneous Test Crossmatch 10/27/16 10/27/16 10/27/16 05:03 06:30 06:30 WBC 13.9 H RBC 3.09 L Hgb 9.2 L Hct 27.5 L MCV MCH MCHC RDW 17.0 H Plt Count Lymph % (Auto) [place] % (Auto) Lymph # [place] # Baso # Seg Neutrophils % Seg Neuts % (Manual) 78.0 H Lymphocytes % (Manual) Monocytes % (Manual) Eosinophils % (Manual) Basophils % (Manual) Nucleated RBC % 2.0 H Seg Neutrophils # Seg Neutrophils # Man 10.8 H Lymphocytes # (Manual) Monocytes # (Manual) 1.0 H Eosinophils # (Manual) Basophils # (Manual) PT INR Fibrinogen dRVVT Confirm Interp Factor V Activity POC ABG pH POC ABG pCO2 POC ABG pO2 ABG pO2 ABG HCO3 ABG Base Excess ABG Hemoglobin Oxyhemoglobin Sodium Potassium Chloride Carbon Dioxide BUN 40 H Creatinine 1.5 H Glucose 135 H POC Glucose 107 H Lactic Acid Calcium 8.3 L Phosphorus 1.30 L D Magnesium Direct Bilirubin AST ALT Alkaline Phosphatase Lactate Dehydrogenase Troponin T C-Reactive Protein Total Protein Albumin Prealbumin Triglycerides Cholesterol LDL Cholesterol Direct HDL Cholesterol Urine pH Urine WBC (Auto) Urine Creatinine Urine Total Protein Fluid Total Protein Vancomycin Trough Rheumatoid Factor Complement C4 Miscellaneous Test Crossmatch 10/27/16 10/27/16 10/27/16 13:27 18:07 23:40 WBC RBC Hgb Hct MCV MCH MCHC RDW Plt Count Lymph % (Auto) [place] % (Auto) Lymph # [place] # Baso # Seg Neutrophils % Seg Neuts % (Manual) Lymphocytes % (Manual) Monocytes % (Manual) Eosinophils % (Manual) Basophils % (Manual) Nucleated RBC % Seg Neutrophils # Seg Neutrophils # Man Lymphocytes # (Manual) Monocytes # (Manual) Eosinophils # (Manual) Basophils # (Manual) PT INR Fibrinogen dRVVT Confirm Interp Factor V Activity POC ABG pH POC ABG pCO2 POC ABG pO2 ABG pO2 ABG HCO3 ABG Base Excess ABG Hemoglobin Oxyhemoglobin Sodium Potassium Chloride Carbon Dioxide BUN Creatinine Glucose POC Glucose 117 H 121 H 118 H Lactic Acid Calcium Phosphorus Magnesium Direct Bilirubin AST ALT Alkaline Phosphatase Lactate Dehydrogenase Troponin T C-Reactive Protein Total Protein Albumin Prealbumin Triglycerides Cholesterol LDL Cholesterol Direct HDL Cholesterol Urine pH Urine WBC (Auto) Urine Creatinine Urine Total Protein Fluid Total Protein Vancomycin Trough Rheumatoid Factor Complement C4 Miscellaneous Test Crossmatch 10/28/16 10/28/16 10/28/16 05:48 06:45 06:45 WBC 14.7 H RBC 3.05 L Hgb 9.0 L Hct 26.9 L MCV MCH MCHC RDW 16.8 H Plt Count Lymph % (Auto) 8.2 L [place] % (Auto) 8.4 H Lymph # [place] # 1.2 H Baso # Seg Neutrophils % 81.9 H Seg Neuts % (Manual) Lymphocytes % (Manual) Monocytes % (Manual) Eosinophils % (Manual) Basophils % (Manual) Nucleated RBC % Seg Neutrophils # 12.1 H Seg Neutrophils # Man Lymphocytes # (Manual) Monocytes # (Manual) Eosinophils # (Manual) Basophils # (Manual) PT INR Fibrinogen dRVVT Confirm Interp Factor V Activity POC ABG pH POC ABG pCO2 POC ABG pO2 ABG pO2 ABG HCO3 ABG Base Excess ABG Hemoglobin Oxyhemoglobin Sodium Potassium Chloride Carbon Dioxide BUN 60 H Creatinine 1.9 H Glucose 120 H POC Glucose 114 H Lactic Acid Calcium Phosphorus Magnesium Direct Bilirubin AST ALT Alkaline Phosphatase Lactate Dehydrogenase Troponin T C-Reactive Protein Total Protein Albumin Prealbumin Triglycerides Cholesterol LDL Cholesterol Direct HDL Cholesterol Urine pH Urine WBC (Auto) Urine Creatinine Urine Total Protein Fluid Total Protein Vancomycin Trough Rheumatoid Factor Complement C4 Miscellaneous Test Crossmatch 10/28/16 10/28/16 10/29/16 17:08 23:50 05:10 WBC RBC Hgb Hct MCV MCH MCHC RDW Plt Count Lymph % (Auto) [place] % (Auto) Lymph # [place] # Baso # Seg Neutrophils % Seg Neuts % (Manual) Lymphocytes % (Manual) Monocytes % (Manual) Eosinophils % (Manual) Basophils % (Manual) Nucleated RBC % Seg Neutrophils # Seg Neutrophils # Man Lymphocytes # (Manual) Monocytes # (Manual) Eosinophils # (Manual) Basophils # (Manual) PT INR Fibrinogen dRVVT Confirm Interp Factor V Activity POC ABG pH POC ABG pCO2 POC ABG pO2 ABG pO2 ABG HCO3 ABG Base Excess ABG Hemoglobin Oxyhemoglobin Sodium Potassium Chloride Carbon Dioxide BUN Creatinine Glucose POC Glucose 109 H 110 H 124 H Lactic Acid Calcium Phosphorus Magnesium Direct Bilirubin AST ALT Alkaline Phosphatase Lactate Dehydrogenase Troponin T C-Reactive Protein Total Protein Albumin Prealbumin Triglycerides Cholesterol LDL Cholesterol Direct HDL Cholesterol Urine pH Urine WBC (Auto) Urine Creatinine Urine Total Protein Fluid Total Protein Vancomycin Trough Rheumatoid Factor Complement C4 Miscellaneous Test Crossmatch 10/29/16 10/29/16 10/29/16 07:45 07:45 12:19 WBC 14.7 H RBC 3.15 L Hgb 9.3 L Hct 28.9 L MCV MCH MCHC RDW 17.0 H Plt Count Lymph % (Auto) 11.9 L [place] % (Auto) 8.6 H Lymph # [place] # 1.3 H Baso # Seg Neutrophils % 78.1 H Seg Neuts % (Manual) Lymphocytes % (Manual) Monocytes % (Manual) Eosinophils % (Manual) Basophils % (Manual) Nucleated RBC % Seg Neutrophils # 11.4 H Seg Neutrophils # Man Lymphocytes # (Manual) Monocytes # (Manual) Eosinophils # (Manual) Basophils # (Manual) PT INR Fibrinogen dRVVT Confirm Interp Factor V Activity POC ABG pH POC ABG pCO2 POC ABG pO2 ABG pO2 ABG HCO3 ABG Base Excess ABG Hemoglobin Oxyhemoglobin Sodium Potassium 5.1 H Chloride Carbon Dioxide 19 L BUN 78 H Creatinine 2.2 H Glucose 116 H POC Glucose 118 H Lactic Acid Calcium Phosphorus Magnesium Direct Bilirubin AST ALT Alkaline Phosphatase Lactate Dehydrogenase Troponin T C-Reactive Protein Total Protein Albumin Prealbumin Triglycerides Cholesterol LDL Cholesterol Direct HDL Cholesterol Urine pH Urine WBC (Auto) Urine Creatinine Urine Total Protein Fluid Total Protein Vancomycin Trough Rheumatoid Factor Complement C4 Miscellaneous Test Crossmatch 10/29/16 10/30/16 10/30/16 17:49 01:52 03:28 WBC RBC Hgb Hct MCV MCH MCHC RDW Plt Count Lymph % (Auto) [place] % (Auto) Lymph # [place] # Baso # Seg Neutrophils % Seg Neuts % (Manual) Lymphocytes % (Manual) Monocytes % (Manual) Eosinophils % (Manual) Basophils % (Manual) Nucleated RBC % Seg Neutrophils # Seg Neutrophils # Man Lymphocytes # (Manual) Monocytes # (Manual) Eosinophils # (Manual) Basophils # (Manual) PT INR Fibrinogen dRVVT Confirm Interp Factor V Activity POC ABG pH POC ABG pCO2 POC ABG pO2 ABG pO2 ABG HCO3 ABG Base Excess ABG Hemoglobin Oxyhemoglobin Sodium Potassium 5.4 H Chloride 97.5 L Carbon Dioxide 19 L BUN 90 H Creatinine 2.5 H Glucose POC Glucose 120 H 129 H Lactic Acid Calcium Phosphorus 5.20 H Magnesium Direct Bilirubin AST ALT Alkaline Phosphatase Lactate Dehydrogenase Troponin T C-Reactive Protein Total Protein Albumin Prealbumin Triglycerides Cholesterol LDL Cholesterol Direct HDL Cholesterol Urine pH Urine WBC (Auto) Urine Creatinine Urine Total Protein Fluid Total Protein Vancomycin Trough Rheumatoid Factor Complement C4 Miscellaneous Test Crossmatch 10/30/16 10/30/16 10/30/16 03:28 08:19 08:19 WBC 11.6 H 15.9 H RBC 2.75 L 2.82 L Hgb 7.9 L 8.3 L Hct 24.2 L 25.2 L MCV MCH MCHC RDW 16.7 H 17.2 H Plt Count Lymph % (Auto) [place] % (Auto) 9.8 H Lymph # [place] # 1.1 H Baso # Seg Neutrophils % 74.2 H Seg Neuts % (Manual) Lymphocytes % (Manual) Monocytes % (Manual) Eosinophils % (Manual) Basophils % (Manual) Nucleated RBC % Seg Neutrophils # 8.6 H Seg Neutrophils # Man Lymphocytes # (Manual) Monocytes # (Manual) Eosinophils # (Manual) Basophils # (Manual) PT INR Fibrinogen dRVVT Confirm Interp Factor V Activity POC ABG pH POC ABG pCO2 POC ABG pO2 ABG pO2 ABG HCO3 ABG Base Excess ABG Hemoglobin Oxyhemoglobin Sodium Potassium 5.3 H Chloride 97.4 L Carbon Dioxide 19 L BUN 93 H Creatinine 2.6 H Glucose POC Glucose Lactic Acid Calcium Phosphorus Magnesium Direct Bilirubin AST ALT Alkaline Phosphatase Lactate Dehydrogenase Troponin T C-Reactive Protein Total Protein Albumin Prealbumin Triglycerides Cholesterol LDL Cholesterol Direct HDL Cholesterol Urine pH Urine WBC (Auto) Urine Creatinine Urine Total Protein Fluid Total Protein Vancomycin Trough Rheumatoid Factor Complement C4 Miscellaneous Test Crossmatch 10/30/16 10/30/16 10/31/16 17:11 23:56 00:40 WBC RBC Hgb Hct MCV MCH MCHC RDW Plt Count Lymph % (Auto) [place] % (Auto) Lymph # [place] # Baso # Seg Neutrophils % Seg Neuts % (Manual) Lymphocytes % (Manual) Monocytes % (Manual) Eosinophils % (Manual) Basophils % (Manual) Nucleated RBC % Seg Neutrophils # Seg Neutrophils # Man Lymphocytes # (Manual) Monocytes # (Manual) Eosinophils # (Manual) Basophils # (Manual) PT INR Fibrinogen dRVVT Confirm Interp Factor V Activity POC ABG pH POC ABG pCO2 POC ABG pO2 ABG pO2 ABG HCO3 ABG Base Excess ABG Hemoglobin Oxyhemoglobin Sodium Potassium Chloride Carbon Dioxide BUN Creatinine Glucose POC Glucose 106 H 117 H 120 H Lactic Acid Calcium Phosphorus Magnesium Direct Bilirubin AST ALT Alkaline Phosphatase Lactate Dehydrogenase Troponin T C-Reactive Protein Total Protein Albumin Prealbumin Triglycerides Cholesterol LDL Cholesterol Direct HDL Cholesterol Urine pH Urine WBC (Auto) Urine Creatinine Urine Total Protein Fluid Total Protein Vancomycin Trough Rheumatoid Factor Complement C4 Miscellaneous Test Crossmatch 10/31/16 10/31/16 10/31/16 05:43 07:15 07:15 WBC 12.1 H RBC 2.63 L Hgb 7.7 L Hct 23.3 L MCV MCH MCHC RDW 16.7 H Plt Count Lymph % (Auto) 11.7 L [place] % (Auto) 7.7 H Lymph # [place] # 0.9 H Baso # Seg Neutrophils % 78.0 H Seg Neuts % (Manual) Lymphocytes % (Manual) Monocytes % (Manual) Eosinophils % (Manual) Basophils % (Manual) Nucleated RBC % Seg Neutrophils # 9.4 H Seg Neutrophils # Man Lymphocytes # (Manual) Monocytes # (Manual) Eosinophils # (Manual) Basophils # (Manual) PT INR Fibrinogen dRVVT Confirm Interp Factor V Activity POC ABG pH POC ABG pCO2 POC ABG pO2 ABG pO2 ABG HCO3 ABG Base Excess ABG Hemoglobin Oxyhemoglobin Sodium Potassium Chloride 96.4 L Carbon Dioxide 21 L BUN 99 H Creatinine 2.6 H Glucose 144 H POC Glucose 125 H Lactic Acid Calcium Phosphorus 4.80 H Magnesium Direct Bilirubin AST ALT Alkaline Phosphatase Lactate Dehydrogenase Troponin T C-Reactive Protein Total Protein Albumin Prealbumin Triglycerides Cholesterol LDL Cholesterol Direct HDL Cholesterol Urine pH Urine WBC (Auto) Urine Creatinine Urine Total Protein Fluid Total Protein Vancomycin Trough Rheumatoid Factor Complement C4 Miscellaneous Test Crossmatch 10/31/16 10/31/16 11/01/16 11:46 18:34 00:20 WBC RBC Hgb Hct MCV MCH MCHC RDW Plt Count Lymph % (Auto) [place] % (Auto) Lymph # [place] # Baso # Seg Neutrophils % Seg Neuts % (Manual) Lymphocytes % (Manual) Monocytes % (Manual) Eosinophils % (Manual) Basophils % (Manual) Nucleated RBC % Seg Neutrophils # Seg Neutrophils # Man Lymphocytes # (Manual) Monocytes # (Manual) Eosinophils # (Manual) Basophils # (Manual) PT INR Fibrinogen dRVVT Confirm Interp Factor V Activity POC ABG pH POC ABG pCO2 POC ABG pO2 ABG pO2 ABG HCO3 ABG Base Excess ABG Hemoglobin Oxyhemoglobin Sodium Potassium Chloride Carbon Dioxide BUN Creatinine Glucose POC Glucose 159 H 140 H 132 H Lactic Acid Calcium Phosphorus Magnesium Direct Bilirubin AST ALT Alkaline Phosphatase Lactate Dehydrogenase Troponin T C-Reactive Protein Total Protein Albumin Prealbumin Triglycerides Cholesterol LDL Cholesterol Direct HDL Cholesterol Urine pH Urine WBC (Auto) Urine Creatinine Urine Total Protein Fluid Total Protein Vancomycin Trough Rheumatoid Factor Complement C4 Miscellaneous Test Crossmatch 11/01/16 11/01/16 11/01/16 04:55 04:55 06:11 WBC 11.2 H RBC 2.68 L Hgb 7.5 L Hct 23.7 L MCV MCH MCHC RDW 16.1 H Plt Count Lymph % (Auto) [place] % (Auto) 9.8 H Lymph # [place] # 1.1 H Baso # Seg Neutrophils % 70.8 H Seg Neuts % (Manual) Lymphocytes % (Manual) Monocytes % (Manual) Eosinophils % (Manual) Basophils % (Manual) Nucleated RBC % Seg Neutrophils # 7.9 H Seg Neutrophils # Man Lymphocytes # (Manual) Monocytes # (Manual) Eosinophils # (Manual) Basophils # (Manual) PT INR Fibrinogen dRVVT Confirm Interp Factor V Activity POC ABG pH POC ABG pCO2 POC ABG pO2 ABG pO2 ABG HCO3 ABG Base Excess ABG Hemoglobin Oxyhemoglobin Sodium Potassium 3.3 L D Chloride Carbon Dioxide BUN 61 H Creatinine 1.9 H Glucose 114 H POC Glucose 115 H Lactic Acid Calcium Phosphorus 1.80 L D Magnesium Direct Bilirubin AST ALT Alkaline Phosphatase Lactate Dehydrogenase Troponin T C-Reactive Protein Total Protein Albumin Prealbumin Triglycerides Cholesterol LDL Cholesterol Direct HDL Cholesterol Urine pH Urine WBC (Auto) Urine Creatinine Urine Total Protein Fluid Total Protein Vancomycin Trough Rheumatoid Factor Complement C4 Miscellaneous Test Crossmatch 11/01/16 11/01/16 11/01/16 12:29 18:23 23:58 WBC RBC Hgb Hct MCV MCH MCHC RDW Plt Count Lymph % (Auto) [place] % (Auto) Lymph # [place] # Baso # Seg Neutrophils % Seg Neuts % (Manual) Lymphocytes % (Manual) Monocytes % (Manual) Eosinophils % (Manual) Basophils % (Manual) Nucleated RBC % Seg Neutrophils # Seg Neutrophils # Man Lymphocytes # (Manual) Monocytes # (Manual) Eosinophils # (Manual) Basophils # (Manual) PT INR Fibrinogen dRVVT Confirm Interp Factor V Activity POC ABG pH POC ABG pCO2 POC ABG pO2 ABG pO2 ABG HCO3 ABG Base Excess ABG Hemoglobin Oxyhemoglobin Sodium Potassium Chloride Carbon Dioxide BUN Creatinine Glucose POC Glucose 142 H 143 H 128 H Lactic Acid Calcium Phosphorus Magnesium Direct Bilirubin AST ALT Alkaline Phosphatase Lactate Dehydrogenase Troponin T C-Reactive Protein Total Protein Albumin Prealbumin Triglycerides Cholesterol LDL Cholesterol Direct HDL Cholesterol Urine pH Urine WBC (Auto) Urine Creatinine Urine Total Protein Fluid Total Protein Vancomycin Trough Rheumatoid Factor Complement C4 Miscellaneous Test Crossmatch 11/02/16 11/02/16 11/02/16 04:16 05:29 11:58 WBC RBC Hgb Hct MCV MCH MCHC RDW Plt Count Lymph % (Auto) [place] % (Auto) Lymph # [place] # Baso # Seg Neutrophils % Seg Neuts % (Manual) Lymphocytes % (Manual) Monocytes % (Manual) Eosinophils % (Manual) Basophils % (Manual) Nucleated RBC % Seg Neutrophils # Seg Neutrophils # Man Lymphocytes # (Manual) Monocytes # (Manual) Eosinophils # (Manual) Basophils # (Manual) PT INR Fibrinogen dRVVT Confirm Interp Factor V Activity POC ABG pH POC ABG pCO2 POC ABG pO2 ABG pO2 ABG HCO3 ABG Base Excess ABG Hemoglobin Oxyhemoglobin Sodium Potassium 3.1 L Chloride Carbon Dioxide BUN 73 H Creatinine 2.3 H Glucose 112 H POC Glucose 135 H 149 H Lactic Acid Calcium Phosphorus Magnesium Direct Bilirubin AST ALT Alkaline Phosphatase Lactate Dehydrogenase Troponin T C-Reactive Protein Total Protein Albumin Prealbumin Triglycerides Cholesterol LDL Cholesterol Direct HDL Cholesterol Urine pH Urine WBC (Auto) Urine Creatinine Urine Total Protein Fluid Total Protein Vancomycin Trough Rheumatoid Factor Complement C4 Miscellaneous Test Crossmatch 11/02/16 11/02/16 11/03/16 17:42 22:54 06:00 WBC RBC Hgb Hct MCV MCH MCHC RDW Plt Count Lymph % (Auto) [place] % (Auto) Lymph # [place] # Baso # Seg Neutrophils % Seg Neuts % (Manual) Lymphocytes % (Manual) Monocytes % (Manual) Eosinophils % (Manual) Basophils % (Manual) Nucleated RBC % Seg Neutrophils # Seg Neutrophils # Man Lymphocytes # (Manual) Monocytes # (Manual) Eosinophils # (Manual) Basophils # (Manual) PT INR Fibrinogen dRVVT Confirm Interp Factor V Activity POC ABG pH POC ABG pCO2 POC ABG pO2 ABG pO2 ABG HCO3 ABG Base Excess ABG Hemoglobin Oxyhemoglobin Sodium Potassium Chloride 96.7 L Carbon Dioxide BUN 41 H Creatinine 1.5 H Glucose 145 H POC Glucose 182 H 115 H Lactic Acid Calcium Phosphorus 1.60 L D Magnesium 1.50 L Direct Bilirubin AST ALT Alkaline Phosphatase Lactate Dehydrogenase Troponin T C-Reactive Protein Total Protein Albumin Prealbumin Triglycerides Cholesterol LDL Cholesterol Direct HDL Cholesterol Urine pH Urine WBC (Auto) Urine Creatinine Urine Total Protein Fluid Total Protein Vancomycin Trough Rheumatoid Factor Complement C4 Miscellaneous Test Crossmatch 11/03/16 11/03/16 11/03/16 11:53 17:45 23:37 WBC RBC Hgb Hct MCV MCH MCHC RDW Plt Count Lymph % (Auto) [place] % (Auto) Lymph # [place] # Baso # Seg Neutrophils % Seg Neuts % (Manual) Lymphocytes % (Manual) Monocytes % (Manual) Eosinophils % (Manual) Basophils % (Manual) Nucleated RBC % Seg Neutrophils # Seg Neutrophils # Man Lymphocytes # (Manual) Monocytes # (Manual) Eosinophils # (Manual) Basophils # (Manual) PT INR Fibrinogen dRVVT Confirm Interp Factor V Activity POC ABG pH POC ABG pCO2 POC ABG pO2 ABG pO2 ABG HCO3 ABG Base Excess ABG Hemoglobin Oxyhemoglobin Sodium Potassium Chloride Carbon Dioxide BUN Creatinine Glucose POC Glucose 131 H 134 H 113 H Lactic Acid Calcium Phosphorus Magnesium Direct Bilirubin AST ALT Alkaline Phosphatase Lactate Dehydrogenase Troponin T C-Reactive Protein Total Protein Albumin Prealbumin Triglycerides Cholesterol LDL Cholesterol Direct HDL Cholesterol Urine pH Urine WBC (Auto) Urine Creatinine Urine Total Protein Fluid Total Protein Vancomycin Trough Rheumatoid Factor Complement C4 Miscellaneous Test Crossmatch 11/04/16 11/04/16 11/04/16 05:41 06:00 12:10 WBC RBC Hgb Hct MCV MCH MCHC RDW Plt Count Lymph % (Auto) [place] % (Auto) Lymph # [place] # Baso # Seg Neutrophils % Seg Neuts % (Manual) Lymphocytes % (Manual) Monocytes % (Manual) Eosinophils % (Manual) Basophils % (Manual) Nucleated RBC % Seg Neutrophils # Seg Neutrophils # Man Lymphocytes # (Manual) Monocytes # (Manual) Eosinophils # (Manual) Basophils # (Manual) PT INR Fibrinogen dRVVT Confirm Interp Factor V Activity POC ABG pH POC ABG pCO2 POC ABG pO2 ABG pO2 ABG HCO3 ABG Base Excess ABG Hemoglobin Oxyhemoglobin Sodium Potassium Chloride 96.7 L Carbon Dioxide BUN 52 H Creatinine 1.9 H Glucose 126 H POC Glucose 137 H 191 H Lactic Acid Calcium Phosphorus Magnesium Direct Bilirubin AST ALT Alkaline Phosphatase Lactate Dehydrogenase Troponin T C-Reactive Protein Total Protein Albumin Prealbumin Triglycerides Cholesterol LDL Cholesterol Direct HDL Cholesterol Urine pH Urine WBC (Auto) Urine Creatinine Urine Total Protein Fluid Total Protein Vancomycin Trough Rheumatoid Factor Complement C4 Miscellaneous Test Crossmatch 11/04/16 11/05/16 11/05/16 22:57 03:10 05:10 WBC RBC Hgb Hct MCV MCH MCHC RDW Plt Count Lymph % (Auto) [place] % (Auto) Lymph # [place] # Baso # Seg Neutrophils % Seg Neuts % (Manual) Lymphocytes % (Manual) Monocytes % (Manual) Eosinophils % (Manual) Basophils % (Manual) Nucleated RBC % Seg Neutrophils # Seg Neutrophils # Man Lymphocytes # (Manual) Monocytes # (Manual) Eosinophils # (Manual) Basophils # (Manual) PT INR Fibrinogen dRVVT Confirm Interp Factor V Activity POC ABG pH POC ABG pCO2 POC ABG pO2 ABG pO2 ABG HCO3 ABG Base Excess ABG Hemoglobin Oxyhemoglobin Sodium 136 L Potassium Chloride 97.2 L Carbon Dioxide BUN 32 H Creatinine 1.3 H Glucose 123 H POC Glucose 125 H 108 H Lactic Acid Calcium 7.8 L Phosphorus Magnesium Direct Bilirubin AST ALT Alkaline Phosphatase Lactate Dehydrogenase Troponin T C-Reactive Protein Total Protein Albumin Prealbumin Triglycerides Cholesterol LDL Cholesterol Direct HDL Cholesterol Urine pH Urine WBC (Auto) Urine Creatinine Urine Total Protein Fluid Total Protein Vancomycin Trough Rheumatoid Factor Complement C4 Miscellaneous Test Crossmatch 11/05/16 11/05/16 11/05/16 12:23 13:09 13:25 WBC RBC Hgb Hct MCV MCH MCHC RDW Plt Count Lymph % (Auto) [place] % (Auto) Lymph # [place] # Baso # Seg Neutrophils % Seg Neuts % (Manual) Lymphocytes % (Manual) Monocytes % (Manual) Eosinophils % (Manual) Basophils % (Manual) Nucleated RBC % Seg Neutrophils # Seg Neutrophils # Man Lymphocytes # (Manual) Monocytes # (Manual) Eosinophils # (Manual) Basophils # (Manual) PT INR Fibrinogen dRVVT Confirm Interp Factor V Activity POC ABG pH POC ABG pCO2 POC ABG pO2 ABG pO2 ABG HCO3 ABG Base Excess ABG Hemoglobin Oxyhemoglobin Sodium Potassium Chloride Carbon Dioxide BUN Creatinine Glucose POC Glucose 124 H Lactic Acid Calcium Phosphorus Magnesium Direct Bilirubin AST ALT Alkaline Phosphatase Lactate Dehydrogenase Troponin T C-Reactive Protein 11.40 H Total Protein Albumin Prealbumin Triglycerides Cholesterol LDL Cholesterol Direct HDL Cholesterol Urine pH 9.0 H Urine WBC (Auto) Urine Creatinine Urine Total Protein Fluid Total Protein Vancomycin Trough Rheumatoid Factor Complement C4 Miscellaneous Test Crossmatch 11/05/16 11/05/16 11/05/16 13:25 17:54 23:42 WBC RBC Hgb Hct MCV MCH MCHC RDW Plt Count Lymph % (Auto) [place] % (Auto) Lymph # [place] # Baso # Seg Neutrophils % Seg Neuts % (Manual) Lymphocytes % (Manual) Monocytes % (Manual) Eosinophils % (Manual) Basophils % (Manual) Nucleated RBC % Seg Neutrophils # Seg Neutrophils # Man Lymphocytes # (Manual) Monocytes # (Manual) Eosinophils # (Manual) Basophils # (Manual) PT INR Fibrinogen dRVVT Confirm Interp Factor V Activity POC ABG pH POC ABG pCO2 POC ABG pO2 ABG pO2 ABG HCO3 ABG Base Excess ABG Hemoglobin Oxyhemoglobin Sodium Potassium Chloride Carbon Dioxide BUN Creatinine Glucose POC Glucose 114 H 134 H Lactic Acid Calcium Phosphorus Magnesium Direct Bilirubin AST ALT Alkaline Phosphatase Lactate Dehydrogenase Troponin T C-Reactive Protein Total Protein Albumin Prealbumin Triglycerides Cholesterol LDL Cholesterol Direct HDL Cholesterol Urine pH Urine WBC (Auto) Urine Creatinine Urine Total Protein Fluid Total Protein Vancomycin Trough Rheumatoid Factor Complement C4 Miscellaneous Test Flexitest 1 H Crossmatch 11/06/16 11/06/16 11/06/16 04:56 06:25 06:25 WBC RBC 2.50 L Hgb 7.3 L Hct 22.5 L MCV MCH MCHC RDW 16.9 H Plt Count Lymph % (Auto) [place] % (Auto) 10.5 H Lymph # [place] # 1.1 H Baso # Seg Neutrophils % Seg Neuts % (Manual) Lymphocytes % (Manual) Monocytes % (Manual) Eosinophils % (Manual) Basophils % (Manual) Nucleated RBC % Seg Neutrophils # Seg Neutrophils # Man Lymphocytes # (Manual) Monocytes # (Manual) Eosinophils # (Manual) Basophils # (Manual) PT INR Fibrinogen dRVVT Confirm Interp Factor V Activity POC ABG pH POC ABG pCO2 POC ABG pO2 ABG pO2 ABG HCO3 ABG Base Excess ABG Hemoglobin Oxyhemoglobin Sodium Potassium 5.1 H Chloride 95.9 L Carbon Dioxide BUN 52 H Creatinine 1.8 H Glucose 117 H POC Glucose 120 H Lactic Acid Calcium Phosphorus Magnesium Direct Bilirubin AST 103 H ALT 77 H Alkaline Phosphatase 285 H Lactate Dehydrogenase Troponin T C-Reactive Protein Total Protein 6.2 L Albumin 1.8 L Prealbumin 0.180 L Triglycerides Cholesterol LDL Cholesterol Direct HDL Cholesterol Urine pH Urine WBC (Auto) Urine Creatinine Urine Total Protein Fluid Total Protein Vancomycin Trough Rheumatoid Factor Complement C4 Miscellaneous Test Crossmatch 11/06/16 11/06/16 11/06/16 11:56 17:14 23:52 WBC RBC Hgb Hct MCV MCH MCHC RDW Plt Count Lymph % (Auto) [place] % (Auto) Lymph # [place] # Baso # Seg Neutrophils % Seg Neuts % (Manual) Lymphocytes % (Manual) Monocytes % (Manual) Eosinophils % (Manual) Basophils % (Manual) Nucleated RBC % Seg Neutrophils # Seg Neutrophils # Man Lymphocytes # (Manual) Monocytes # (Manual) Eosinophils # (Manual) Basophils # (Manual) PT INR Fibrinogen dRVVT Confirm Interp Factor V Activity POC ABG pH POC ABG pCO2 POC ABG pO2 ABG pO2 ABG HCO3 ABG Base Excess ABG Hemoglobin Oxyhemoglobin Sodium Potassium Chloride Carbon Dioxide BUN Creatinine Glucose POC Glucose 141 H 125 H 130 H Lactic Acid Calcium Phosphorus Magnesium Direct Bilirubin AST ALT Alkaline Phosphatase Lactate Dehydrogenase Troponin T C-Reactive Protein Total Protein Albumin Prealbumin Triglycerides Cholesterol LDL Cholesterol Direct HDL Cholesterol Urine pH Urine WBC (Auto) Urine Creatinine Urine Total Protein Fluid Total Protein Vancomycin Trough Rheumatoid Factor Complement C4 Miscellaneous Test Crossmatch 11/07/16 11/07/16 11/07/16 06:30 06:30 09:37 WBC RBC 2.18 L Hgb 6.3 L Hct 19.7 L* MCV MCH MCHC RDW 16.8 H Plt Count Lymph % (Auto) [place] % (Auto) 10.0 H Lymph # [place] # 1.0 H Baso # Seg Neutrophils % Seg Neuts % (Manual) Lymphocytes % (Manual) Monocytes % (Manual) Eosinophils % (Manual) Basophils % (Manual) Nucleated RBC % Seg Neutrophils # Seg Neutrophils # Man Lymphocytes # (Manual) Monocytes # (Manual) Eosinophils # (Manual) Basophils # (Manual) PT INR Fibrinogen dRVVT Confirm Interp Factor V Activity POC ABG pH POC ABG pCO2 POC ABG pO2 ABG pO2 ABG HCO3 ABG Base Excess ABG Hemoglobin Oxyhemoglobin Sodium 135 L Potassium Chloride 95.6 L Carbon Dioxide BUN 70 H Creatinine 2.0 H Glucose 126 H POC Glucose Lactic Acid Calcium Phosphorus Magnesium Direct Bilirubin AST ALT Alkaline Phosphatase Lactate Dehydrogenase Troponin T C-Reactive Protein Total Protein Albumin Prealbumin Triglycerides Cholesterol LDL Cholesterol Direct HDL Cholesterol Urine pH Urine WBC (Auto) Urine Creatinine Urine Total Protein Fluid Total Protein Vancomycin Trough Rheumatoid Factor Complement C4 Miscellaneous Test Crossmatch See Detail 11/07/16 11/07/16 11/07/16 12:52 18:51 21:26 WBC RBC Hgb Hct MCV MCH MCHC RDW Plt Count Lymph % (Auto) [place] % (Auto) Lymph # [place] # Baso # Seg Neutrophils % Seg Neuts % (Manual) Lymphocytes % (Manual) Monocytes % (Manual) Eosinophils % (Manual) Basophils % (Manual) Nucleated RBC % Seg Neutrophils # Seg Neutrophils # Man Lymphocytes # (Manual) Monocytes # (Manual) Eosinophils # (Manual) Basophils # (Manual) PT INR Fibrinogen dRVVT Confirm Interp Factor V Activity POC ABG pH 7.523 H POC ABG pCO2 34.6 L POC ABG pO2 53 L ABG pO2 ABG HCO3 ABG Base Excess ABG Hemoglobin Oxyhemoglobin Sodium Potassium Chloride Carbon Dioxide BUN Creatinine Glucose POC Glucose 142 H 155 H Lactic Acid Calcium Phosphorus Magnesium Direct Bilirubin AST ALT Alkaline Phosphatase Lactate Dehydrogenase Troponin T C-Reactive Protein Total Protein Albumin Prealbumin Triglycerides Cholesterol LDL Cholesterol Direct HDL Cholesterol Urine pH Urine WBC (Auto) Urine Creatinine Urine Total Protein Fluid Total Protein Vancomycin Trough Rheumatoid Factor Complement C4 Miscellaneous Test Crossmatch 11/07/16 11/08/16 11/08/16 21:34 13:03 23:37 WBC RBC 2.63 L Hgb 7.7 L Hct 22.7 L MCV MCH MCHC RDW 17.0 H Plt Count Lymph % (Auto) [place] % (Auto) Lymph # [place] # Baso # Seg Neutrophils % Seg Neuts % (Manual) Lymphocytes % (Manual) Monocytes % (Manual) Eosinophils % (Manual) Basophils % (Manual) Nucleated RBC % Seg Neutrophils # Seg Neutrophils # Man Lymphocytes # (Manual) Monocytes # (Manual) Eosinophils # (Manual) Basophils # (Manual) PT INR Fibrinogen dRVVT Confirm Interp Factor V Activity POC ABG pH 7.478 H POC ABG pCO2 34.0 L POC ABG pO2 50 L ABG pO2 ABG HCO3 ABG Base Excess ABG Hemoglobin Oxyhemoglobin Sodium Potassium Chloride Carbon Dioxide BUN Creatinine Glucose POC Glucose 113 H Lactic Acid Calcium Phosphorus Magnesium Direct Bilirubin AST ALT Alkaline Phosphatase Lactate Dehydrogenase Troponin T C-Reactive Protein Total Protein Albumin Prealbumin Triglycerides Cholesterol LDL Cholesterol Direct HDL Cholesterol Urine pH Urine WBC (Auto) Urine Creatinine Urine Total Protein Fluid Total Protein Vancomycin Trough Rheumatoid Factor Complement C4 Miscellaneous Test Crossmatch 11/09/16 11/09/16 11/09/16 04:35 10:15 18:21 WBC RBC 2.68 L Hgb 7.8 L Hct 23.3 L MCV MCH MCHC RDW 17.0 H Plt Count Lymph % (Auto) [place] % (Auto) 12.1 H Lymph # [place] # 1.1 H Baso # Seg Neutrophils % Seg Neuts % (Manual) Lymphocytes % (Manual) Monocytes % (Manual) Eosinophils % (Manual) Basophils % (Manual) Nucleated RBC % Seg Neutrophils # Seg Neutrophils # Man Lymphocytes # (Manual) Monocytes # (Manual) Eosinophils # (Manual) Basophils # (Manual) PT INR Fibrinogen dRVVT Confirm Interp Factor V Activity POC ABG pH POC ABG pCO2 POC ABG pO2 ABG pO2 ABG HCO3 ABG Base Excess ABG Hemoglobin Oxyhemoglobin Sodium Potassium Chloride Carbon Dioxide BUN 51 H Creatinine 1.8 H Glucose POC Glucose 60 L Lactic Acid Calcium 8.3 L Phosphorus Magnesium Direct Bilirubin AST ALT Alkaline Phosphatase Lactate Dehydrogenase Troponin T C-Reactive Protein Total Protein Albumin Prealbumin Triglycerides Cholesterol LDL Cholesterol Direct HDL Cholesterol Urine pH Urine WBC (Auto) Urine Creatinine Urine Total Protein Fluid Total Protein Vancomycin Trough Rheumatoid Factor Complement C4 Miscellaneous Test Crossmatch 11/09/16 11/10/16 11/10/16 18:55 07:00 11:51 WBC RBC Hgb Hct MCV MCH MCHC RDW Plt Count Lymph % (Auto) [place] % (Auto) Lymph # [place] # Baso # Seg Neutrophils % Seg Neuts % (Manual) Lymphocytes % (Manual) Monocytes % (Manual) Eosinophils % (Manual) Basophils % (Manual) Nucleated RBC % Seg Neutrophils # Seg Neutrophils # Man Lymphocytes # (Manual) Monocytes # (Manual) Eosinophils # (Manual) Basophils # (Manual) PT INR Fibrinogen dRVVT Confirm Interp Factor V Activity POC ABG pH POC ABG pCO2 POC ABG pO2 ABG pO2 ABG HCO3 ABG Base Excess ABG Hemoglobin Oxyhemoglobin Sodium Potassium 3.0 L D Chloride 97.4 L Carbon Dioxide BUN 28 H Creatinine 1.3 H Glucose POC Glucose 68 L 120 H Lactic Acid Calcium 7.8 L Phosphorus Magnesium Direct Bilirubin AST ALT Alkaline Phosphatase Lactate Dehydrogenase Troponin T C-Reactive Protein Total Protein Albumin Prealbumin Triglycerides Cholesterol LDL Cholesterol Direct HDL Cholesterol Urine pH Urine WBC (Auto) Urine Creatinine Urine Total Protein Fluid Total Protein Vancomycin Trough Rheumatoid Factor Complement C4 Miscellaneous Test Crossmatch 11/10/16 11/11/16 11/11/16 14:20 06:59 06:59 WBC RBC 2.81 L Hgb 8.1 L Hct 24.4 L MCV MCH MCHC RDW 16.4 H Plt Count Lymph % (Auto) [place] % (Auto) 10.8 H Lymph # [place] # 1.0 H Baso # Seg Neutrophils % Seg Neuts % (Manual) Lymphocytes % (Manual) Monocytes % (Manual) Eosinophils % (Manual) Basophils % (Manual) Nucleated RBC % Seg Neutrophils # Seg Neutrophils # Man Lymphocytes # (Manual) Monocytes # (Manual) Eosinophils # (Manual) Basophils # (Manual) PT INR Fibrinogen dRVVT Confirm Interp Factor V Activity POC ABG pH POC ABG pCO2 POC ABG pO2 ABG pO2 ABG HCO3 ABG Base Excess ABG Hemoglobin Oxyhemoglobin Sodium Potassium Chloride Carbon Dioxide BUN Creatinine Glucose POC Glucose Lactic Acid Calcium Phosphorus Magnesium Direct Bilirubin AST ALT Alkaline Phosphatase Lactate Dehydrogenase 196 H Troponin T C-Reactive Protein Total Protein 6.1 L Albumin Prealbumin Triglycerides Cholesterol LDL Cholesterol Direct HDL Cholesterol Urine pH Urine WBC (Auto) Urine Creatinine Urine Total Protein Fluid Total Protein < 3.0 L Vancomycin Trough Rheumatoid Factor Complement C4 Miscellaneous Test Crossmatch 11/11/16 11/11/16 11/12/16 06:59 09:50 04:00 WBC RBC Hgb Hct MCV MCH MCHC RDW Plt Count Lymph % (Auto) [place] % (Auto) Lymph # [place] # Baso # Seg Neutrophils % Seg Neuts % (Manual) Lymphocytes % (Manual) Monocytes % (Manual) Eosinophils % (Manual) Basophils % (Manual) Nucleated RBC % Seg Neutrophils # Seg Neutrophils # Man Lymphocytes # (Manual) Monocytes # (Manual) Eosinophils # (Manual) Basophils # (Manual) PT INR 1.18 H Fibrinogen dRVVT Confirm Interp Factor V Activity POC ABG pH POC ABG pCO2 POC ABG pO2 ABG pO2 ABG HCO3 ABG Base Excess ABG Hemoglobin Oxyhemoglobin Sodium 136 L 133 L Potassium Chloride 96.1 L 94.8 L Carbon Dioxide 21 L BUN 37 H 42 H Creatinine 1.8 H 2.0 H Glucose POC Glucose Lactic Acid Calcium Phosphorus Magnesium Direct Bilirubin AST ALT Alkaline Phosphatase Lactate Dehydrogenase Troponin T C-Reactive Protein Total Protein Albumin Prealbumin Triglycerides Cholesterol LDL Cholesterol Direct HDL Cholesterol Urine pH Urine WBC (Auto) Urine Creatinine Urine Total Protein Fluid Total Protein Vancomycin Trough Rheumatoid Factor Complement C4 Miscellaneous Test Crossmatch 11/12/16 11/12/16 11/13/16 04:00 23:55 05:53 WBC RBC Hgb 8.9 L Hct 27.2 L MCV MCH MCHC RDW Plt Count Lymph % (Auto) [place] % (Auto) Lymph # [place] # Baso # Seg Neutrophils % Seg Neuts % (Manual) Lymphocytes % (Manual) Monocytes % (Manual) Eosinophils % (Manual) Basophils % (Manual) Nucleated RBC % Seg Neutrophils # Seg Neutrophils # Man Lymphocytes # (Manual) Monocytes # (Manual) Eosinophils # (Manual) Basophils # (Manual) PT INR Fibrinogen dRVVT Confirm Interp Factor V Activity POC ABG pH POC ABG pCO2 POC ABG pO2 ABG pO2 ABG HCO3 ABG Base Excess ABG Hemoglobin Oxyhemoglobin Sodium Potassium Chloride Carbon Dioxide BUN Creatinine Glucose POC Glucose 132 H 120 H Lactic Acid Calcium Phosphorus Magnesium Direct Bilirubin AST ALT Alkaline Phosphatase Lactate Dehydrogenase Troponin T C-Reactive Protein Total Protein Albumin Prealbumin Triglycerides Cholesterol LDL Cholesterol Direct HDL Cholesterol Urine pH Urine WBC (Auto) Urine Creatinine Urine Total Protein Fluid Total Protein Vancomycin Trough Rheumatoid Factor Complement C4 Miscellaneous Test Crossmatch 11/13/16 11/13/16 11/13/16 11:43 17:09 23:41 WBC RBC Hgb Hct MCV MCH MCHC RDW Plt Count Lymph % (Auto) [place] % (Auto) Lymph # [place] # Baso # Seg Neutrophils % Seg Neuts % (Manual) Lymphocytes % (Manual) Monocytes % (Manual) Eosinophils % (Manual) Basophils % (Manual) Nucleated RBC % Seg Neutrophils # Seg Neutrophils # Man Lymphocytes # (Manual) Monocytes # (Manual) Eosinophils # (Manual) Basophils # (Manual) PT INR Fibrinogen dRVVT Confirm Interp Factor V Activity POC ABG pH POC ABG pCO2 POC ABG pO2 ABG pO2 ABG HCO3 ABG Base Excess ABG Hemoglobin Oxyhemoglobin Sodium Potassium Chloride Carbon Dioxide BUN Creatinine Glucose POC Glucose 114 H 113 H 108 H Lactic Acid Calcium Phosphorus Magnesium Direct Bilirubin AST ALT Alkaline Phosphatase Lactate Dehydrogenase Troponin T C-Reactive Protein Total Protein Albumin Prealbumin Triglycerides Cholesterol LDL Cholesterol Direct HDL Cholesterol Urine pH Urine WBC (Auto) Urine Creatinine Urine Total Protein Fluid Total Protein Vancomycin Trough Rheumatoid Factor Complement C4 Miscellaneous Test Crossmatch 11/13/16 11/15/16 11/15/16 Unknown 00:37 03:30 WBC 11.2 H RBC 2.72 L Hgb 7.6 L Hct 23.4 L MCV MCH MCHC RDW 16.5 H Plt Count Lymph % (Auto) [place] % (Auto) Lymph # [place] # Baso # Seg Neutrophils % Seg Neuts % (Manual) Lymphocytes % (Manual) Monocytes % (Manual) Eosinophils % (Manual) Basophils % (Manual) Nucleated RBC % Seg Neutrophils # Seg Neutrophils # Man Lymphocytes # (Manual) Monocytes # (Manual) Eosinophils # (Manual) Basophils # (Manual) PT INR Fibrinogen dRVVT Confirm Interp Factor V Activity POC ABG pH POC ABG pCO2 POC ABG pO2 ABG pO2 ABG HCO3 ABG Base Excess ABG Hemoglobin Oxyhemoglobin Sodium 135 L Potassium Chloride 95.2 L Carbon Dioxide BUN 52 H Creatinine 2.2 H Glucose POC Glucose 108 H Lactic Acid Calcium Phosphorus Magnesium Direct Bilirubin AST ALT Alkaline Phosphatase Lactate Dehydrogenase Troponin T C-Reactive Protein Total Protein Albumin Prealbumin Triglycerides Cholesterol LDL Cholesterol Direct HDL Cholesterol Urine pH Urine WBC (Auto) Urine Creatinine Urine Total Protein Fluid Total Protein Vancomycin Trough Rheumatoid Factor Complement C4 Miscellaneous Test Crossmatch 11/15/16 11/15/16 11/15/16 03:30 05:04 11:50 WBC RBC Hgb Hct MCV MCH MCHC RDW Plt Count Lymph % (Auto) [place] % (Auto) Lymph # [place] # Baso # Seg Neutrophils % Seg Neuts % (Manual) Lymphocytes % (Manual) Monocytes % (Manual) Eosinophils % (Manual) Basophils % (Manual) Nucleated RBC % Seg Neutrophils # Seg Neutrophils # Man Lymphocytes # (Manual) Monocytes # (Manual) Eosinophils # (Manual) Basophils # (Manual) PT INR Fibrinogen dRVVT Confirm Interp Factor V Activity POC ABG pH POC ABG pCO2 POC ABG pO2 ABG pO2 ABG HCO3 ABG Base Excess ABG Hemoglobin Oxyhemoglobin Sodium Potassium 3.4 L Chloride Carbon Dioxide BUN 25 H Creatinine 1.5 H Glucose 103 H POC Glucose 121 H 144 H Lactic Acid Calcium Phosphorus Magnesium Direct Bilirubin AST ALT Alkaline Phosphatase Lactate Dehydrogenase Troponin T C-Reactive Protein Total Protein Albumin Prealbumin Triglycerides Cholesterol LDL Cholesterol Direct HDL Cholesterol Urine pH Urine WBC (Auto) Urine Creatinine Urine Total Protein Fluid Total Protein Vancomycin Trough Rheumatoid Factor Complement C4 Miscellaneous Test Crossmatch 11/15/16 11/15/16 11/16/16 21:28 23:20 11:44 WBC RBC Hgb Hct MCV MCH MCHC RDW Plt Count Lymph % (Auto) [place] % (Auto) Lymph # [place] # Baso # Seg Neutrophils % Seg Neuts % (Manual) Lymphocytes % (Manual) Monocytes % (Manual) Eosinophils % (Manual) Basophils % (Manual) Nucleated RBC % Seg Neutrophils # Seg Neutrophils # Man Lymphocytes # (Manual) Monocytes # (Manual) Eosinophils # (Manual) Basophils # (Manual) PT INR Fibrinogen dRVVT Confirm Interp Factor V Activity POC ABG pH 7.462 H POC ABG pCO2 POC ABG pO2 71 L ABG pO2 ABG HCO3 ABG Base Excess ABG Hemoglobin Oxyhemoglobin Sodium Potassium Chloride Carbon Dioxide BUN Creatinine Glucose POC Glucose 116 H 133 H Lactic Acid Calcium Phosphorus Magnesium Direct Bilirubin AST ALT Alkaline Phosphatase Lactate Dehydrogenase Troponin T C-Reactive Protein Total Protein Albumin Prealbumin Triglycerides Cholesterol LDL Cholesterol Direct HDL Cholesterol Urine pH Urine WBC (Auto) Urine Creatinine Urine Total Protein Fluid Total Protein Vancomycin Trough Rheumatoid Factor Complement C4 Miscellaneous Test Crossmatch 11/16/16 11/16/16 11/16/16 12:20 17:05 23:35 WBC 11.7 H RBC 2.73 L Hgb 7.6 L Hct 23.7 L MCV MCH MCHC RDW 16.6 H Plt Count Lymph % (Auto) [place] % (Auto) Lymph # [place] # Baso # Seg Neutrophils % Seg Neuts % (Manual) Lymphocytes % (Manual) Monocytes % (Manual) Eosinophils % (Manual) Basophils % (Manual) Nucleated RBC % Seg Neutrophils # Seg Neutrophils # Man Lymphocytes # (Manual) Monocytes # (Manual) Eosinophils # (Manual) Basophils # (Manual) PT INR Fibrinogen dRVVT Confirm Interp Factor V Activity POC ABG pH POC ABG pCO2 POC ABG pO2 ABG pO2 ABG HCO3 ABG Base Excess ABG Hemoglobin Oxyhemoglobin Sodium Potassium Chloride Carbon Dioxide BUN Creatinine Glucose POC Glucose 154 H 125 H Lactic Acid Calcium Phosphorus Magnesium Direct Bilirubin AST ALT Alkaline Phosphatase Lactate Dehydrogenase Troponin T C-Reactive Protein Total Protein Albumin Prealbumin Triglycerides Cholesterol LDL Cholesterol Direct HDL Cholesterol Urine pH Urine WBC (Auto) Urine Creatinine Urine Total Protein Fluid Total Protein Vancomycin Trough Rheumatoid Factor Complement C4 Miscellaneous Test Crossmatch 11/17/16 11/17/16 11/17/16 03:20 03:20 03:20 WBC RBC 2.55 L Hgb 7.3 L Hct 21.9 L MCV MCH MCHC RDW 16.6 H Plt Count Lymph % (Auto) [place] % (Auto) 11.5 H Lymph # [place] # 1.1 H Baso # Seg Neutrophils % Seg Neuts % (Manual) Lymphocytes % (Manual) Monocytes % (Manual) Eosinophils % (Manual) Basophils % (Manual) Nucleated RBC % Seg Neutrophils # Seg Neutrophils # Man Lymphocytes # (Manual) Monocytes # (Manual) Eosinophils # (Manual) Basophils # (Manual) PT 16.8 H INR 1.37 H Fibrinogen dRVVT Confirm Interp Factor V Activity POC ABG pH POC ABG pCO2 POC ABG pO2 ABG pO2 ABG HCO3 ABG Base Excess ABG Hemoglobin Oxyhemoglobin Sodium Potassium 3.5 L Chloride Carbon Dioxide BUN 21 H Creatinine Glucose POC Glucose Lactic Acid Calcium 7.9 L Phosphorus Magnesium Direct Bilirubin AST ALT Alkaline Phosphatase Lactate Dehydrogenase Troponin T C-Reactive Protein Total Protein Albumin Prealbumin Triglycerides Cholesterol LDL Cholesterol Direct HDL Cholesterol Urine pH Urine WBC (Auto) Urine Creatinine Urine Total Protein Fluid Total Protein Vancomycin Trough Rheumatoid Factor Complement C4 Miscellaneous Test Crossmatch 11/17/16 11/17/16 11/17/16 06:34 11:21 21:22 WBC RBC Hgb Hct MCV MCH MCHC RDW Plt Count Lymph % (Auto) [place] % (Auto) Lymph # [place] # Baso # Seg Neutrophils % Seg Neuts % (Manual) Lymphocytes % (Manual) Monocytes % (Manual) Eosinophils % (Manual) Basophils % (Manual) Nucleated RBC % Seg Neutrophils # Seg Neutrophils # Man Lymphocytes # (Manual) Monocytes # (Manual) Eosinophils # (Manual) Basophils # (Manual) PT INR Fibrinogen dRVVT Confirm Interp Factor V Activity POC ABG pH 7.467 H POC ABG pCO2 POC ABG pO2 73 L ABG pO2 ABG HCO3 ABG Base Excess ABG Hemoglobin Oxyhemoglobin Sodium Potassium Chloride Carbon Dioxide BUN Creatinine Glucose POC Glucose 121 H 119 H Lactic Acid Calcium Phosphorus Magnesium Direct Bilirubin AST ALT Alkaline Phosphatase Lactate Dehydrogenase Troponin T C-Reactive Protein Total Protein Albumin Prealbumin Triglycerides Cholesterol LDL Cholesterol Direct HDL Cholesterol Urine pH Urine WBC (Auto) Urine Creatinine Urine Total Protein Fluid Total Protein Vancomycin Trough Rheumatoid Factor Complement C4 Miscellaneous Test Crossmatch 11/18/16 11/18/16 11/19/16 12:16 17:19 00:00 WBC RBC Hgb Hct MCV MCH MCHC RDW Plt Count Lymph % (Auto) [place] % (Auto) Lymph # [place] # Baso # Seg Neutrophils % Seg Neuts % (Manual) Lymphocytes % (Manual) Monocytes % (Manual) Eosinophils % (Manual) Basophils % (Manual) Nucleated RBC % Seg Neutrophils # Seg Neutrophils # Man Lymphocytes # (Manual) Monocytes # (Manual) Eosinophils # (Manual) Basophils # (Manual) PT INR Fibrinogen dRVVT Confirm Interp Factor V Activity POC ABG pH POC ABG pCO2 POC ABG pO2 ABG pO2 ABG HCO3 ABG Base Excess ABG Hemoglobin Oxyhemoglobin Sodium Potassium Chloride Carbon Dioxide BUN Creatinine Glucose POC Glucose 124 H 162 H 139 H Lactic Acid Calcium Phosphorus Magnesium Direct Bilirubin AST ALT Alkaline Phosphatase Lactate Dehydrogenase Troponin T C-Reactive Protein Total Protein Albumin Prealbumin Triglycerides Cholesterol LDL Cholesterol Direct HDL Cholesterol Urine pH Urine WBC (Auto) Urine Creatinine Urine Total Protein Fluid Total Protein Vancomycin Trough Rheumatoid Factor Complement C4 Miscellaneous Test Crossmatch 11/19/16 11/19/16 11/20/16 05:00 12:43 00:40 WBC RBC Hgb Hct MCV MCH MCHC RDW Plt Count Lymph % (Auto) [place] % (Auto) Lymph # [place] # Baso # Seg Neutrophils % Seg Neuts % (Manual) Lymphocytes % (Manual) Monocytes % (Manual) Eosinophils % (Manual) Basophils % (Manual) Nucleated RBC % Seg Neutrophils # Seg Neutrophils # Man Lymphocytes # (Manual) Monocytes # (Manual) Eosinophils # (Manual) Basophils # (Manual) PT INR Fibrinogen dRVVT Confirm Interp Factor V Activity POC ABG pH POC ABG pCO2 POC ABG pO2 ABG pO2 ABG HCO3 ABG Base Excess ABG Hemoglobin Oxyhemoglobin Sodium Potassium Chloride Carbon Dioxide BUN Creatinine Glucose POC Glucose 110 H 125 H 136 H Lactic Acid Calcium Phosphorus Magnesium Direct Bilirubin AST ALT Alkaline Phosphatase Lactate Dehydrogenase Troponin T C-Reactive Protein Total Protein Albumin Prealbumin Triglycerides Cholesterol LDL Cholesterol Direct HDL Cholesterol Urine pH Urine WBC (Auto) Urine Creatinine Urine Total Protein Fluid Total Protein Vancomycin Trough Rheumatoid Factor Complement C4 Miscellaneous Test Crossmatch 11/20/16 11/20/16 11/20/16 05:00 05:00 05:51 WBC 13.1 H RBC 2.74 L Hgb 7.7 L Hct 23.6 L MCV MCH MCHC RDW 16.9 H Plt Count Lymph % (Auto) [place] % (Auto) 10.8 H Lymph # [place] # 1.4 H Baso # Seg Neutrophils % Seg Neuts % (Manual) Lymphocytes % (Manual) Monocytes % (Manual) Eosinophils % (Manual) Basophils % (Manual) Nucleated RBC % Seg Neutrophils # 7.9 H Seg Neutrophils # Man Lymphocytes # (Manual) Monocytes # (Manual) Eosinophils # (Manual) Basophils # (Manual) PT INR Fibrinogen dRVVT Confirm Interp Factor V Activity POC ABG pH POC ABG pCO2 POC ABG pO2 ABG pO2 ABG HCO3 ABG Base Excess ABG Hemoglobin Oxyhemoglobin Sodium Potassium Chloride Carbon Dioxide BUN 31 H Creatinine 1.8 H Glucose 129 H POC Glucose 133 H Lactic Acid Calcium Phosphorus Magnesium Direct Bilirubin AST ALT Alkaline Phosphatase Lactate Dehydrogenase Troponin T C-Reactive Protein Total Protein Albumin Prealbumin Triglycerides Cholesterol LDL Cholesterol Direct HDL Cholesterol Urine pH Urine WBC (Auto) Urine Creatinine Urine Total Protein Fluid Total Protein Vancomycin Trough Rheumatoid Factor Complement C4 Miscellaneous Test Crossmatch 11/20/16 11/20/16 11/21/16 12:40 18:10 01:20 WBC RBC Hgb Hct MCV MCH MCHC RDW Plt Count Lymph % (Auto) [place] % (Auto) Lymph # [place] # Baso # Seg Neutrophils % Seg Neuts % (Manual) Lymphocytes % (Manual) Monocytes % (Manual) Eosinophils % (Manual) Basophils % (Manual) Nucleated RBC % Seg Neutrophils # Seg Neutrophils # Man Lymphocytes # (Manual) Monocytes # (Manual) Eosinophils # (Manual) Basophils # (Manual) PT INR Fibrinogen dRVVT Confirm Interp Factor V Activity POC ABG pH POC ABG pCO2 POC ABG pO2 ABG pO2 ABG HCO3 ABG Base Excess ABG Hemoglobin Oxyhemoglobin Sodium Potassium Chloride Carbon Dioxide BUN Creatinine Glucose POC Glucose 134 H 138 H 136 H Lactic Acid Calcium Phosphorus Magnesium Direct Bilirubin AST ALT Alkaline Phosphatase Lactate Dehydrogenase Troponin T C-Reactive Protein Total Protein Albumin Prealbumin Triglycerides Cholesterol LDL Cholesterol Direct HDL Cholesterol Urine pH Urine WBC (Auto) Urine Creatinine Urine Total Protein Fluid Total Protein Vancomycin Trough Rheumatoid Factor Complement C4 Miscellaneous Test Crossmatch 11/21/16 11/21/16 11/21/16 07:04 07:45 07:45 WBC 22.0 H RBC 2.91 L Hgb 8.2 L Hct 25.4 L MCV MCH MCHC RDW 17.1 H Plt Count Lymph % (Auto) [place] % (Auto) Lymph # [place] # Baso # Seg Neutrophils % Seg Neuts % (Manual) Lymphocytes % (Manual) 8.0 L Monocytes % (Manual) Eosinophils % (Manual) Basophils % (Manual) Nucleated RBC % Seg Neutrophils # Seg Neutrophils # Man 14.7 H Lymphocytes # (Manual) Monocytes # (Manual) 1.1 H Eosinophils # (Manual) Basophils # (Manual) PT INR Fibrinogen dRVVT Confirm Interp Factor V Activity POC ABG pH POC ABG pCO2 POC ABG pO2 ABG pO2 ABG HCO3 ABG Base Excess ABG Hemoglobin Oxyhemoglobin Sodium Potassium Chloride Carbon Dioxide BUN 42 H Creatinine 2.0 H Glucose POC Glucose 108 H Lactic Acid Calcium Phosphorus Magnesium Direct Bilirubin AST ALT Alkaline Phosphatase Lactate Dehydrogenase Troponin T C-Reactive Protein Total Protein Albumin Prealbumin Triglycerides Cholesterol LDL Cholesterol Direct HDL Cholesterol Urine pH Urine WBC (Auto) Urine Creatinine Urine Total Protein Fluid Total Protein Vancomycin Trough Rheumatoid Factor Complement C4 Miscellaneous Test Crossmatch 11/21/16 11/21/16 11/21/16 08:38 10:09 11:20 WBC RBC Hgb Hct MCV MCH MCHC RDW Plt Count Lymph % (Auto) [place] % (Auto) Lymph # [place] # Baso # Seg Neutrophils % Seg Neuts % (Manual) Lymphocytes % (Manual) Monocytes % (Manual) Eosinophils % (Manual) Basophils % (Manual) Nucleated RBC % Seg Neutrophils # Seg Neutrophils # Man Lymphocytes # (Manual) Monocytes # (Manual) Eosinophils # (Manual) Basophils # (Manual) PT INR Fibrinogen dRVVT Confirm Interp Factor V Activity POC ABG pH 7.346 L POC ABG pCO2 34.4 L POC ABG pO2 314 H ABG pO2 ABG HCO3 ABG Base Excess ABG Hemoglobin Oxyhemoglobin Sodium Potassium Chloride Carbon Dioxide BUN Creatinine Glucose POC Glucose 195 H 153 H Lactic Acid Calcium Phosphorus Magnesium Direct Bilirubin AST ALT Alkaline Phosphatase Lactate Dehydrogenase Troponin T C-Reactive Protein Total Protein Albumin Prealbumin Triglycerides Cholesterol LDL Cholesterol Direct HDL Cholesterol Urine pH Urine WBC (Auto) Urine Creatinine Urine Total Protein Fluid Total Protein Vancomycin Trough Rheumatoid Factor Complement C4 Miscellaneous Test Crossmatch 11/21/16 11/22/16 11/22/16 23:37 04:48 05:00 WBC 29.7 H RBC 2.73 L Hgb 7.5 L Hct 24.2 L MCV MCH 27 L MCHC RDW 17.4 H Plt Count Lymph % (Auto) [place] % (Auto) Lymph # [place] # Baso # Seg Neutrophils % Seg Neuts % (Manual) Lymphocytes % (Manual) 7.0 L Monocytes % (Manual) Eosinophils % (Manual) Basophils % (Manual) Nucleated RBC % Seg Neutrophils # Seg Neutrophils # Man 15.4 H Lymphocytes # (Manual) Monocytes # (Manual) Eosinophils # (Manual) Basophils # (Manual) PT INR Fibrinogen dRVVT Confirm Interp Factor V Activity POC ABG pH POC ABG pCO2 24.6 L POC ABG pO2 189 H ABG pO2 ABG HCO3 ABG Base Excess ABG Hemoglobin Oxyhemoglobin Sodium Potassium Chloride Carbon Dioxide BUN Creatinine Glucose POC Glucose 65 L Lactic Acid Calcium Phosphorus Magnesium Direct Bilirubin AST ALT Alkaline Phosphatase Lactate Dehydrogenase Troponin T C-Reactive Protein Total Protein Albumin Prealbumin Triglycerides Cholesterol LDL Cholesterol Direct HDL Cholesterol Urine pH Urine WBC (Auto) Urine Creatinine Urine Total Protein Fluid Total Protein Vancomycin Trough Rheumatoid Factor Complement C4 Miscellaneous Test Crossmatch 11/22/16 11/23/16 11/23/16 05:00 03:44 04:06 WBC RBC 2.52 L Hgb 7.2 L Hct 21.5 L MCV MCH MCHC RDW 17.1 H Plt Count Lymph % (Auto) [place] % (Auto) 12.4 H Lymph # [place] # 1.4 H Baso # Seg Neutrophils % Seg Neuts % (Manual) Lymphocytes % (Manual) Monocytes % (Manual) Eosinophils % (Manual) Basophils % (Manual) Nucleated RBC % Seg Neutrophils # Seg Neutrophils # Man Lymphocytes # (Manual) Monocytes # (Manual) Eosinophils # (Manual) Basophils # (Manual) PT INR Fibrinogen dRVVT Confirm Interp Factor V Activity POC ABG pH 7.493 H POC ABG pCO2 29.5 L POC ABG pO2 49 L ABG pO2 ABG HCO3 ABG Base Excess ABG Hemoglobin Oxyhemoglobin Sodium 134 L Potassium Chloride 95.9 L Carbon Dioxide 14 L D BUN 51 H Creatinine 2.6 H Glucose POC Glucose Lactic Acid Calcium Phosphorus Magnesium Direct Bilirubin AST ALT Alkaline Phosphatase Lactate Dehydrogenase Troponin T C-Reactive Protein Total Protein Albumin Prealbumin Triglycerides Cholesterol LDL Cholesterol Direct HDL Cholesterol Urine pH Urine WBC (Auto) Urine Creatinine Urine Total Protein Fluid Total Protein Vancomycin Trough Rheumatoid Factor Complement C4 Miscellaneous Test Crossmatch 11/23/16 11/23/16 11/24/16 04:06 11:29 06:39 WBC RBC Hgb Hct MCV MCH MCHC RDW Plt Count Lymph % (Auto) [place] % (Auto) Lymph # [place] # Baso # Seg Neutrophils % Seg Neuts % (Manual) Lymphocytes % (Manual) Monocytes % (Manual) Eosinophils % (Manual) Basophils % (Manual) Nucleated RBC % Seg Neutrophils # Seg Neutrophils # Man Lymphocytes # (Manual) Monocytes # (Manual) Eosinophils # (Manual) Basophils # (Manual) PT INR Fibrinogen dRVVT Confirm Interp Factor V Activity POC ABG pH POC ABG pCO2 POC ABG pO2 ABG pO2 ABG HCO3 ABG Base Excess ABG Hemoglobin Oxyhemoglobin Sodium 136 L Potassium Chloride 95.2 L Carbon Dioxide BUN 60 H Creatinine 2.9 H Glucose POC Glucose 69 L 305 H Lactic Acid Calcium Phosphorus Magnesium 1.60 L Direct Bilirubin AST ALT Alkaline Phosphatase Lactate Dehydrogenase Troponin T C-Reactive Protein Total Protein Albumin Prealbumin Triglycerides Cholesterol LDL Cholesterol Direct HDL Cholesterol Urine pH Urine WBC (Auto) Urine Creatinine Urine Total Protein Fluid Total Protein Vancomycin Trough Rheumatoid Factor Complement C4 Miscellaneous Test Crossmatch 11/24/16 11/24/16 11/24/16 06:43 08:08 08:08 WBC 11.2 H RBC 2.47 L Hgb 6.8 L Hct 20.6 L MCV MCH MCHC RDW 17.0 H Plt Count Lymph % (Auto) [place] % (Auto) 10.3 H Lymph # [place] # 1.2 H Baso # Seg Neutrophils % Seg Neuts % (Manual) Lymphocytes % (Manual) Monocytes % (Manual) Eosinophils % (Manual) Basophils % (Manual) Nucleated RBC % Seg Neutrophils # Seg Neutrophils # Man Lymphocytes # (Manual) Monocytes # (Manual) Eosinophils # (Manual) Basophils # (Manual) PT INR Fibrinogen dRVVT Confirm Interp Factor V Activity POC ABG pH POC ABG pCO2 POC ABG pO2 ABG pO2 ABG HCO3 ABG Base Excess ABG Hemoglobin Oxyhemoglobin Sodium 135 L Potassium Chloride 96.3 L Carbon Dioxide BUN 61 H Creatinine 3.1 H Glucose POC Glucose 62 L Lactic Acid Calcium 8.2 L Phosphorus Magnesium Direct Bilirubin AST ALT Alkaline Phosphatase Lactate Dehydrogenase Troponin T C-Reactive Protein Total Protein Albumin Prealbumin Triglycerides Cholesterol LDL Cholesterol Direct HDL Cholesterol Urine pH Urine WBC (Auto) Urine Creatinine Urine Total Protein Fluid Total Protein Vancomycin Trough Rheumatoid Factor Complement C4 Miscellaneous Test Crossmatch 11/24/16 11/24/16 11/24/16 08:34 11:20 12:41 WBC RBC Hgb Hct MCV MCH MCHC RDW Plt Count Lymph % (Auto) [place] % (Auto) Lymph # [place] # Baso # Seg Neutrophils % Seg Neuts % (Manual) Lymphocytes % (Manual) Monocytes % (Manual) Eosinophils % (Manual) Basophils % (Manual) Nucleated RBC % Seg Neutrophils # Seg Neutrophils # Man Lymphocytes # (Manual) Monocytes # (Manual) Eosinophils # (Manual) Basophils # (Manual) PT INR Fibrinogen dRVVT Confirm Interp Factor V Activity POC ABG pH POC ABG pCO2 POC ABG pO2 ABG pO2 ABG HCO3 ABG Base Excess ABG Hemoglobin Oxyhemoglobin Sodium Potassium Chloride Carbon Dioxide BUN Creatinine Glucose POC Glucose 108 H Lactic Acid Calcium Phosphorus Magnesium 1.60 L Direct Bilirubin AST ALT Alkaline Phosphatase Lactate Dehydrogenase Troponin T C-Reactive Protein Total Protein Albumin Prealbumin Triglycerides Cholesterol LDL Cholesterol Direct HDL Cholesterol Urine pH Urine WBC (Auto) Urine Creatinine Urine Total Protein Fluid Total Protein Vancomycin Trough Rheumatoid Factor Complement C4 Miscellaneous Test Crossmatch See Detail 11/25/16 11/25/16 11/25/16 00:03 04:42 04:42 WBC RBC 3.03 L Hgb 8.6 L Hct 25.3 L MCV MCH MCHC RDW 16.2 H Plt Count Lymph % (Auto) [place] % (Auto) 8.1 H Lymph # [place] # Baso # Seg Neutrophils % 71.3 H Seg Neuts % (Manual) Lymphocytes % (Manual) Monocytes % (Manual) Eosinophils % (Manual) Basophils % (Manual) Nucleated RBC % Seg Neutrophils # Seg Neutrophils # Man Lymphocytes # (Manual) Monocytes # (Manual) Eosinophils # (Manual) Basophils # (Manual) PT INR Fibrinogen dRVVT Confirm Interp Factor V Activity POC ABG pH POC ABG pCO2 POC ABG pO2 ABG pO2 ABG HCO3 ABG Base Excess ABG Hemoglobin Oxyhemoglobin Sodium Potassium Chloride Carbon Dioxide BUN 61 H Creatinine 3.0 H Glucose 102 H POC Glucose 113 H Lactic Acid Calcium 8.2 L Phosphorus Magnesium Direct Bilirubin AST ALT Alkaline Phosphatase 142 H Lactate Dehydrogenase Troponin T C-Reactive Protein Total Protein 5.7 L Albumin 1.5 L Prealbumin Triglycerides Cholesterol LDL Cholesterol Direct HDL Cholesterol Urine pH Urine WBC (Auto) Urine Creatinine Urine Total Protein Fluid Total Protein Vancomycin Trough Rheumatoid Factor Complement C4 Miscellaneous Test Crossmatch 11/25/16 11/25/16 11/25/16 05:12 11:31 14:12 WBC RBC Hgb Hct MCV MCH MCHC RDW Plt Count Lymph % (Auto) [place] % (Auto) Lymph # [place] # Baso # Seg Neutrophils % Seg Neuts % (Manual) Lymphocytes % (Manual) Monocytes % (Manual) Eosinophils % (Manual) Basophils % (Manual) Nucleated RBC % Seg Neutrophils # Seg Neutrophils # Man Lymphocytes # (Manual) Monocytes # (Manual) Eosinophils # (Manual) Basophils # (Manual) PT INR Fibrinogen dRVVT Confirm Interp Factor V Activity POC ABG pH 7.487 H POC ABG pCO2 POC ABG pO2 153 H ABG pO2 ABG HCO3 ABG Base Excess ABG Hemoglobin Oxyhemoglobin Sodium Potassium Chloride Carbon Dioxide BUN Creatinine Glucose POC Glucose 131 H 140 H Lactic Acid Calcium Phosphorus Magnesium Direct Bilirubin AST ALT Alkaline Phosphatase Lactate Dehydrogenase Troponin T C-Reactive Protein Total Protein Albumin Prealbumin Triglycerides Cholesterol LDL Cholesterol Direct HDL Cholesterol Urine pH Urine WBC (Auto) Urine Creatinine Urine Total Protein Fluid Total Protein Vancomycin Trough Rheumatoid Factor Complement C4 Miscellaneous Test Crossmatch 11/25/16 11/26/16 11/26/16 17:23 00:09 05:13 WBC RBC 2.94 L Hgb 8.4 L Hct 24.6 L MCV MCH MCHC RDW 16.4 H Plt Count Lymph % (Auto) [place] % (Auto) 12.3 H Lymph # [place] # 1.1 H Baso # Seg Neutrophils % Seg Neuts % (Manual) Lymphocytes % (Manual) Monocytes % (Manual) Eosinophils % (Manual) Basophils % (Manual) Nucleated RBC % Seg Neutrophils # Seg Neutrophils # Man Lymphocytes # (Manual) Monocytes # (Manual) Eosinophils # (Manual) Basophils # (Manual) PT INR Fibrinogen dRVVT Confirm Interp Factor V Activity POC ABG pH POC ABG pCO2 POC ABG pO2 ABG pO2 ABG HCO3 ABG Base Excess ABG Hemoglobin Oxyhemoglobin Sodium Potassium Chloride Carbon Dioxide BUN Creatinine Glucose POC Glucose 146 H 112 H Lactic Acid Calcium Phosphorus Magnesium Direct Bilirubin AST ALT Alkaline Phosphatase Lactate Dehydrogenase Troponin T C-Reactive Protein Total Protein Albumin Prealbumin Triglycerides Cholesterol LDL Cholesterol Direct HDL Cholesterol Urine pH Urine WBC (Auto) Urine Creatinine Urine Total Protein Fluid Total Protein Vancomycin Trough Rheumatoid Factor Complement C4 Miscellaneous Test Crossmatch 11/26/16 11/26/16 11/26/16 05:13 05:28 11:53 WBC RBC Hgb Hct MCV MCH MCHC RDW Plt Count Lymph % (Auto) [place] % (Auto) Lymph # [place] # Baso # Seg Neutrophils % Seg Neuts % (Manual) Lymphocytes % (Manual) Monocytes % (Manual) Eosinophils % (Manual) Basophils % (Manual) Nucleated RBC % Seg Neutrophils # Seg Neutrophils # Man Lymphocytes # (Manual) Monocytes # (Manual) Eosinophils # (Manual) Basophils # (Manual) PT INR Fibrinogen dRVVT Confirm Interp Factor V Activity POC ABG pH POC ABG pCO2 POC ABG pO2 ABG pO2 ABG HCO3 ABG Base Excess ABG Hemoglobin Oxyhemoglobin Sodium Potassium Chloride 97.8 L Carbon Dioxide BUN 37 H Creatinine 2.0 H Glucose 109 H POC Glucose 117 H 111 H Lactic Acid Calcium 7.9 L Phosphorus 1.80 L D Magnesium Direct Bilirubin AST ALT Alkaline Phosphatase Lactate Dehydrogenase Troponin T C-Reactive Protein Total Protein Albumin Prealbumin Triglycerides Cholesterol LDL Cholesterol Direct HDL Cholesterol Urine pH Urine WBC (Auto) Urine Creatinine Urine Total Protein Fluid Total Protein Vancomycin Trough Rheumatoid Factor Complement C4 Miscellaneous Test Crossmatch 11/26/16 11/27/16 11/27/16 17:14 04:50 06:02 WBC RBC Hgb Hct MCV MCH MCHC RDW Plt Count Lymph % (Auto) [place] % (Auto) Lymph # [place] # Baso # Seg Neutrophils % Seg Neuts % (Manual) Lymphocytes % (Manual) Monocytes % (Manual) Eosinophils % (Manual) Basophils % (Manual) Nucleated RBC % Seg Neutrophils # Seg Neutrophils # Man Lymphocytes # (Manual) Monocytes # (Manual) Eosinophils # (Manual) Basophils # (Manual) PT INR Fibrinogen dRVVT Confirm Interp Factor V Activity POC ABG pH POC ABG pCO2 POC ABG pO2 ABG pO2 75.2 L ABG HCO3 26.4 H ABG Base Excess ABG Hemoglobin 7.6 L Oxyhemoglobin 94.8 L Sodium Potassium Chloride Carbon Dioxide BUN 49 H Creatinine 2.3 H Glucose POC Glucose 115 H Lactic Acid Calcium Phosphorus 1.50 L Magnesium Direct Bilirubin AST ALT Alkaline Phosphatase Lactate Dehydrogenase Troponin T C-Reactive Protein Total Protein Albumin Prealbumin Triglycerides Cholesterol LDL Cholesterol Direct HDL Cholesterol Urine pH Urine WBC (Auto) Urine Creatinine Urine Total Protein Fluid Total Protein Vancomycin Trough Rheumatoid Factor Complement C4 Miscellaneous Test Crossmatch 11/27/16 11/27/16 11/27/16 06:02 11:25 17:25 WBC 11.6 H RBC 2.75 L Hgb 7.6 L Hct 23.4 L MCV MCH MCHC RDW 16.5 H Plt Count Lymph % (Auto) [place] % (Auto) Lymph # [place] # Baso # Seg Neutrophils % Seg Neuts % (Manual) Lymphocytes % (Manual) Monocytes % (Manual) Eosinophils % (Manual) Basophils % (Manual) Nucleated RBC % Seg Neutrophils # Seg Neutrophils # Man Lymphocytes # (Manual) Monocytes # (Manual) Eosinophils # (Manual) Basophils # (Manual) PT INR Fibrinogen dRVVT Confirm Interp Factor V Activity POC ABG pH POC ABG pCO2 POC ABG pO2 ABG pO2 ABG HCO3 ABG Base Excess ABG Hemoglobin Oxyhemoglobin Sodium Potassium Chloride Carbon Dioxide BUN Creatinine Glucose POC Glucose 114 H 126 H Lactic Acid Calcium Phosphorus Magnesium Direct Bilirubin AST ALT Alkaline Phosphatase Lactate Dehydrogenase Troponin T C-Reactive Protein Total Protein Albumin Prealbumin Triglycerides Cholesterol LDL Cholesterol Direct HDL Cholesterol Urine pH Urine WBC (Auto) Urine Creatinine Urine Total Protein Fluid Total Protein Vancomycin Trough Rheumatoid Factor Complement C4 Miscellaneous Test Crossmatch 11/28/16 11/28/16 11/28/16 04:45 05:33 05:44 WBC RBC Hgb Hct MCV MCH MCHC RDW Plt Count Lymph % (Auto) [place] % (Auto) Lymph # [place] # Baso # Seg Neutrophils % Seg Neuts % (Manual) Lymphocytes % (Manual) Monocytes % (Manual) Eosinophils % (Manual) Basophils % (Manual) Nucleated RBC % Seg Neutrophils # Seg Neutrophils # Man Lymphocytes # (Manual) Monocytes # (Manual) Eosinophils # (Manual) Basophils # (Manual) PT INR Fibrinogen dRVVT Confirm Interp Factor V Activity POC ABG pH POC ABG pCO2 POC ABG pO2 ABG pO2 99.3 H ABG HCO3 ABG Base Excess ABG Hemoglobin 8.3 L Oxyhemoglobin Sodium Potassium Chloride Carbon Dioxide BUN 63 H Creatinine 2.4 H Glucose 102 H POC Glucose 108 H Lactic Acid Calcium Phosphorus 1.80 L Magnesium Direct Bilirubin AST ALT Alkaline Phosphatase Lactate Dehydrogenase Troponin T C-Reactive Protein Total Protein Albumin Prealbumin Triglycerides Cholesterol LDL Cholesterol Direct HDL Cholesterol Urine pH Urine WBC (Auto) Urine Creatinine Urine Total Protein Fluid Total Protein Vancomycin Trough Rheumatoid Factor Complement C4 Miscellaneous Test Crossmatch 11/28/16 11/28/16 11/28/16 12:31 16:09 23:46 WBC RBC Hgb Hct MCV MCH MCHC RDW Plt Count Lymph % (Auto) [place] % (Auto) Lymph # [place] # Baso # Seg Neutrophils % Seg Neuts % (Manual) Lymphocytes % (Manual) Monocytes % (Manual) Eosinophils % (Manual) Basophils % (Manual) Nucleated RBC % Seg Neutrophils # Seg Neutrophils # Man Lymphocytes # (Manual) Monocytes # (Manual) Eosinophils # (Manual) Basophils # (Manual) PT INR Fibrinogen dRVVT Confirm Interp Factor V Activity POC ABG pH POC ABG pCO2 POC ABG pO2 ABG pO2 ABG HCO3 ABG Base Excess ABG Hemoglobin Oxyhemoglobin Sodium Potassium Chloride Carbon Dioxide BUN Creatinine Glucose POC Glucose 126 H 111 H 119 H Lactic Acid Calcium Phosphorus Magnesium Direct Bilirubin AST ALT Alkaline Phosphatase Lactate Dehydrogenase Troponin T C-Reactive Protein Total Protein Albumin Prealbumin Triglycerides Cholesterol LDL Cholesterol Direct HDL Cholesterol Urine pH Urine WBC (Auto) Urine Creatinine Urine Total Protein Fluid Total Protein Vancomycin Trough Rheumatoid Factor Complement C4 Miscellaneous Test Crossmatch 11/29/16 11/29/16 11/29/16 03:33 04:52 05:10 WBC RBC Hgb Hct MCV MCH MCHC RDW Plt Count Lymph % (Auto) [place] % (Auto) Lymph # [place] # Baso # Seg Neutrophils % Seg Neuts % (Manual) Lymphocytes % (Manual) Monocytes % (Manual) Eosinophils % (Manual) Basophils % (Manual) Nucleated RBC % Seg Neutrophils # Seg Neutrophils # Man Lymphocytes # (Manual) Monocytes # (Manual) Eosinophils # (Manual) Basophils # (Manual) PT INR Fibrinogen dRVVT Confirm Interp Factor V Activity POC ABG pH POC ABG pCO2 POC ABG pO2 ABG pO2 ABG HCO3 ABG Base Excess ABG Hemoglobin 7.0 L Oxyhemoglobin 94.9 L Sodium Potassium Chloride Carbon Dioxide BUN 73 H Creatinine 2.7 H Glucose POC Glucose 108 H Lactic Acid Calcium Phosphorus Magnesium Direct Bilirubin AST ALT Alkaline Phosphatase Lactate Dehydrogenase Troponin T C-Reactive Protein Total Protein Albumin Prealbumin Triglycerides Cholesterol LDL Cholesterol Direct HDL Cholesterol Urine pH Urine WBC (Auto) Urine Creatinine Urine Total Protein Fluid Total Protein Vancomycin Trough Rheumatoid Factor Complement C4 Miscellaneous Test Crossmatch 11/29/16 11/29/16 11/29/16 12:16 18:05 23:46 WBC RBC Hgb Hct MCV MCH MCHC RDW Plt Count Lymph % (Auto) [place] % (Auto) Lymph # [place] # Baso # Seg Neutrophils % Seg Neuts % (Manual) Lymphocytes % (Manual) Monocytes % (Manual) Eosinophils % (Manual) Basophils % (Manual) Nucleated RBC % Seg Neutrophils # Seg Neutrophils # Man Lymphocytes # (Manual) Monocytes # (Manual) Eosinophils # (Manual) Basophils # (Manual) PT INR Fibrinogen dRVVT Confirm Interp Factor V Activity POC ABG pH POC ABG pCO2 POC ABG pO2 ABG pO2 ABG HCO3 ABG Base Excess ABG Hemoglobin Oxyhemoglobin Sodium Potassium Chloride Carbon Dioxide BUN Creatinine Glucose POC Glucose 133 H 146 H 141 H Lactic Acid Calcium Phosphorus Magnesium Direct Bilirubin AST ALT Alkaline Phosphatase Lactate Dehydrogenase Troponin T C-Reactive Protein Total Protein Albumin Prealbumin Triglycerides Cholesterol LDL Cholesterol Direct HDL Cholesterol Urine pH Urine WBC (Auto) Urine Creatinine Urine Total Protein Fluid Total Protein Vancomycin Trough Rheumatoid Factor Complement C4 Miscellaneous Test Crossmatch 11/30/16 11/30/16 11/30/16 04:17 04:17 04:32 WBC 12.0 H RBC 2.80 L Hgb 7.8 L Hct 23.6 L MCV MCH MCHC RDW 16.6 H Plt Count Lymph % (Auto) [place] % (Auto) 11.3 H Lymph # [place] # 1.4 H Baso # Seg Neutrophils % Seg Neuts % (Manual) Lymphocytes % (Manual) Monocytes % (Manual) Eosinophils % (Manual) Basophils % (Manual) Nucleated RBC % Seg Neutrophils # 8.2 H Seg Neutrophils # Man Lymphocytes # (Manual) Monocytes # (Manual) Eosinophils # (Manual) Basophils # (Manual) PT INR Fibrinogen dRVVT Confirm Interp Factor V Activity POC ABG pH POC ABG pCO2 POC ABG pO2 ABG pO2 ABG HCO3 ABG Base Excess ABG Hemoglobin Oxyhemoglobin Sodium 169 H* D Potassium 5.1 H Chloride 121.5 H Carbon Dioxide BUN 34 H Creatinine 1.3 H D Glucose 133 H POC Glucose 131 H Lactic Acid Calcium 10.3 H Phosphorus Magnesium Direct Bilirubin AST ALT Alkaline Phosphatase Lactate Dehydrogenase Troponin T C-Reactive Protein Total Protein Albumin Prealbumin Triglycerides Cholesterol LDL Cholesterol Direct HDL Cholesterol Urine pH Urine WBC (Auto) Urine Creatinine Urine Total Protein Fluid Total Protein Vancomycin Trough Rheumatoid Factor Complement C4 Miscellaneous Test Crossmatch 11/30/16 11/30/16 11/30/16 05:45 11:10 17:26 WBC RBC Hgb Hct MCV MCH MCHC RDW Plt Count Lymph % (Auto) [place] % (Auto) Lymph # [place] # Baso # Seg Neutrophils % Seg Neuts % (Manual) Lymphocytes % (Manual) Monocytes % (Manual) Eosinophils % (Manual) Basophils % (Manual) Nucleated RBC % Seg Neutrophils # Seg Neutrophils # Man Lymphocytes # (Manual) Monocytes # (Manual) Eosinophils # (Manual) Basophils # (Manual) PT INR Fibrinogen dRVVT Confirm Interp Factor V Activity POC ABG pH POC ABG pCO2 POC ABG pO2 ABG pO2 ABG HCO3 ABG Base Excess ABG Hemoglobin Oxyhemoglobin Sodium Potassium Chloride Carbon Dioxide BUN 45 H Creatinine 1.6 H Glucose 131 H POC Glucose 146 H 134 H Lactic Acid Calcium Phosphorus Magnesium Direct Bilirubin AST ALT Alkaline Phosphatase Lactate Dehydrogenase Troponin T C-Reactive Protein Total Protein Albumin Prealbumin Triglycerides Cholesterol LDL Cholesterol Direct HDL Cholesterol Urine pH Urine WBC (Auto) Urine Creatinine Urine Total Protein Fluid Total Protein Vancomycin Trough Rheumatoid Factor Complement C4 Miscellaneous Test Crossmatch 11/30/16 12/01/16 12/01/16 23:35 00:06 03:35 WBC RBC Hgb Hct MCV MCH MCHC RDW Plt Count Lymph % (Auto) [place] % (Auto) Lymph # [place] # Baso # Seg Neutrophils % Seg Neuts % (Manual) Lymphocytes % (Manual) Monocytes % (Manual) Eosinophils % (Manual) Basophils % (Manual) Nucleated RBC % Seg Neutrophils # Seg Neutrophils # Man Lymphocytes # (Manual) Monocytes # (Manual) Eosinophils # (Manual) Basophils # (Manual) PT INR Fibrinogen dRVVT Confirm Interp Factor V Activity POC ABG pH POC ABG pCO2 POC ABG pO2 ABG pO2 ABG HCO3 ABG Base Excess ABG Hemoglobin 6.9 L Oxyhemoglobin Sodium Potassium Chloride Carbon Dioxide BUN 58 H Creatinine 1.8 H Glucose 146 H POC Glucose 151 H Lactic Acid Calcium Phosphorus Magnesium Direct Bilirubin AST ALT Alkaline Phosphatase Lactate Dehydrogenase Troponin T C-Reactive Protein Total Protein Albumin Prealbumin Triglycerides Cholesterol LDL Cholesterol Direct HDL Cholesterol Urine pH Urine WBC (Auto) Urine Creatinine Urine Total Protein Fluid Total Protein Vancomycin Trough Rheumatoid Factor Complement C4 Miscellaneous Test Crossmatch 12/01/16 12/01/16 12/01/16 03:35 05:47 11:52 WBC 12.3 H RBC 2.82 L Hgb 7.8 L Hct 23.7 L MCV MCH MCHC RDW 16.7 H Plt Count Lymph % (Auto) [place] % (Auto) 9.8 H Lymph # [place] # 1.2 H Baso # Seg Neutrophils % Seg Neuts % (Manual) Lymphocytes % (Manual) Monocytes % (Manual) Eosinophils % (Manual) Basophils % (Manual) Nucleated RBC % Seg Neutrophils # 8.4 H Seg Neutrophils # Man Lymphocytes # (Manual) Monocytes # (Manual) Eosinophils # (Manual) Basophils # (Manual) PT INR Fibrinogen dRVVT Confirm Interp Factor V Activity POC ABG pH POC ABG pCO2 POC ABG pO2 ABG pO2 ABG HCO3 ABG Base Excess ABG Hemoglobin Oxyhemoglobin Sodium Potassium Chloride Carbon Dioxide BUN Creatinine Glucose POC Glucose 152 H 152 H Lactic Acid Calcium Phosphorus Magnesium Direct Bilirubin AST ALT Alkaline Phosphatase Lactate Dehydrogenase Troponin T C-Reactive Protein Total Protein Albumin Prealbumin Triglycerides Cholesterol LDL Cholesterol Direct HDL Cholesterol Urine pH Urine WBC (Auto) Urine Creatinine Urine Total Protein Fluid Total Protein Vancomycin Trough Rheumatoid Factor Complement C4 Miscellaneous Test Crossmatch 12/01/16 12/01/16 12/02/16 17:40 23:41 05:00 WBC RBC Hgb Hct MCV MCH MCHC RDW Plt Count Lymph % (Auto) [place] % (Auto) Lymph # [place] # Baso # Seg Neutrophils % Seg Neuts % (Manual) Lymphocytes % (Manual) Monocytes % (Manual) Eosinophils % (Manual) Basophils % (Manual) Nucleated RBC % Seg Neutrophils # Seg Neutrophils # Man Lymphocytes # (Manual) Monocytes # (Manual) Eosinophils # (Manual) Basophils # (Manual) PT INR Fibrinogen dRVVT Confirm Interp Factor V Activity POC ABG pH POC ABG pCO2 POC ABG pO2 ABG pO2 ABG HCO3 ABG Base Excess ABG Hemoglobin Oxyhemoglobin Sodium Potassium Chloride Carbon Dioxide BUN 45 H Creatinine Glucose 115 H POC Glucose 140 H 144 H Lactic Acid Calcium Phosphorus Magnesium Direct Bilirubin AST ALT Alkaline Phosphatase Lactate Dehydrogenase Troponin T C-Reactive Protein Total Protein Albumin Prealbumin Triglycerides Cholesterol LDL Cholesterol Direct HDL Cholesterol Urine pH Urine WBC (Auto) Urine Creatinine Urine Total Protein Fluid Total Protein Vancomycin Trough Rheumatoid Factor Complement C4 Miscellaneous Test Crossmatch 12/02/16 12/02/16 12/02/16 05:31 11:20 17:38 WBC RBC Hgb Hct MCV MCH MCHC RDW Plt Count Lymph % (Auto) [place] % (Auto) Lymph # [place] # Baso # Seg Neutrophils % Seg Neuts % (Manual) Lymphocytes % (Manual) Monocytes % (Manual) Eosinophils % (Manual) Basophils % (Manual) Nucleated RBC % Seg Neutrophils # Seg Neutrophils # Man Lymphocytes # (Manual) Monocytes # (Manual) Eosinophils # (Manual) Basophils # (Manual) PT INR Fibrinogen dRVVT Confirm Interp Factor V Activity POC ABG pH POC ABG pCO2 POC ABG pO2 ABG pO2 ABG HCO3 ABG Base Excess ABG Hemoglobin Oxyhemoglobin Sodium Potassium Chloride Carbon Dioxide BUN Creatinine Glucose POC Glucose 136 H 177 H 139 H Lactic Acid Calcium Phosphorus Magnesium Direct Bilirubin AST ALT Alkaline Phosphatase Lactate Dehydrogenase Troponin T C-Reactive Protein Total Protein Albumin Prealbumin Triglycerides Cholesterol LDL Cholesterol Direct HDL Cholesterol Urine pH Urine WBC (Auto) Urine Creatinine Urine Total Protein Fluid Total Protein Vancomycin Trough Rheumatoid Factor Complement C4 Miscellaneous Test Crossmatch 12/02/16 12/03/16 12/03/16 23:43 04:00 04:00 WBC 20.4 H RBC 2.74 L Hgb 7.4 L Hct 23.6 L MCV MCH 27 L MCHC RDW 17.1 H Plt Count Lymph % (Auto) [place] % (Auto) Lymph # [place] # Baso # Seg Neutrophils % Seg Neuts % (Manual) 31.0 L Lymphocytes % (Manual) Monocytes % (Manual) Eosinophils % (Manual) Basophils % (Manual) Nucleated RBC % Seg Neutrophils # Seg Neutrophils # Man Lymphocytes # (Manual) Monocytes # (Manual) Eosinophils # (Manual) Basophils # (Manual) PT INR Fibrinogen dRVVT Confirm Interp Factor V Activity POC ABG pH POC ABG pCO2 POC ABG pO2 ABG pO2 ABG HCO3 ABG Base Excess ABG Hemoglobin Oxyhemoglobin Sodium Potassium Chloride Carbon Dioxide BUN 61 H Creatinine 1.6 H Glucose 119 H POC Glucose 158 H Lactic Acid Calcium Phosphorus Magnesium Direct Bilirubin AST ALT Alkaline Phosphatase Lactate Dehydrogenase Troponin T C-Reactive Protein Total Protein Albumin Prealbumin Triglycerides Cholesterol LDL Cholesterol Direct HDL Cholesterol Urine pH Urine WBC (Auto) Urine Creatinine Urine Total Protein Fluid Total Protein Vancomycin Trough Rheumatoid Factor Complement C4 Miscellaneous Test Crossmatch 12/03/16 12/03/16 12/03/16 05:02 12:11 18:16 WBC RBC Hgb Hct MCV MCH MCHC RDW Plt Count Lymph % (Auto) [place] % (Auto) Lymph # [place] # Baso # Seg Neutrophils % Seg Neuts % (Manual) Lymphocytes % (Manual) Monocytes % (Manual) Eosinophils % (Manual) Basophils % (Manual) Nucleated RBC % Seg Neutrophils # Seg Neutrophils # Man Lymphocytes # (Manual) Monocytes # (Manual) Eosinophils # (Manual) Basophils # (Manual) PT INR Fibrinogen dRVVT Confirm Interp Factor V Activity POC ABG pH POC ABG pCO2 POC ABG pO2 ABG pO2 ABG HCO3 ABG Base Excess ABG Hemoglobin Oxyhemoglobin Sodium Potassium Chloride Carbon Dioxide BUN Creatinine Glucose POC Glucose 146 H 157 H 124 H Lactic Acid Calcium Phosphorus Magnesium Direct Bilirubin AST ALT Alkaline Phosphatase Lactate Dehydrogenase Troponin T C-Reactive Protein Total Protein Albumin Prealbumin Triglycerides Cholesterol LDL Cholesterol Direct HDL Cholesterol Urine pH Urine WBC (Auto) Urine Creatinine Urine Total Protein Fluid Total Protein Vancomycin Trough Rheumatoid Factor Complement C4 Miscellaneous Test Crossmatch 12/03/16 12/04/16 12/04/16 23:41 04:00 04:45 WBC RBC Hgb Hct MCV MCH MCHC RDW Plt Count Lymph % (Auto) [place] % (Auto) Lymph # [place] # Baso # Seg Neutrophils % Seg Neuts % (Manual) Lymphocytes % (Manual) Monocytes % (Manual) Eosinophils % (Manual) Basophils % (Manual) Nucleated RBC % Seg Neutrophils # Seg Neutrophils # Man Lymphocytes # (Manual) Monocytes # (Manual) Eosinophils # (Manual) Basophils # (Manual) PT INR Fibrinogen dRVVT Confirm Interp Factor V Activity POC ABG pH POC ABG pCO2 POC ABG pO2 ABG pO2 ABG HCO3 ABG Base Excess ABG Hemoglobin Oxyhemoglobin Sodium Potassium Chloride Carbon Dioxide BUN 76 H Creatinine 1.6 H Glucose POC Glucose 130 H 136 H Lactic Acid Calcium Phosphorus Magnesium Direct Bilirubin AST ALT Alkaline Phosphatase 155 H Lactate Dehydrogenase Troponin T C-Reactive Protein Total Protein 5.5 L Albumin 1.5 L Prealbumin Triglycerides Cholesterol LDL Cholesterol Direct HDL Cholesterol Urine pH Urine WBC (Auto) Urine Creatinine Urine Total Protein Fluid Total Protein Vancomycin Trough Rheumatoid Factor Complement C4 Miscellaneous Test Crossmatch 12/04/16 12/04/16 12/05/16 12:08 17:23 00:10 WBC RBC Hgb Hct MCV MCH MCHC RDW Plt Count Lymph % (Auto) [place] % (Auto) Lymph # [place] # Baso # Seg Neutrophils % Seg Neuts % (Manual) Lymphocytes % (Manual) Monocytes % (Manual) Eosinophils % (Manual) Basophils % (Manual) Nucleated RBC % Seg Neutrophils # Seg Neutrophils # Man Lymphocytes # (Manual) Monocytes # (Manual) Eosinophils # (Manual) Basophils # (Manual) PT INR Fibrinogen dRVVT Confirm Interp Factor V Activity POC ABG pH POC ABG pCO2 POC ABG pO2 ABG pO2 ABG HCO3 ABG Base Excess ABG Hemoglobin Oxyhemoglobin Sodium Potassium Chloride Carbon Dioxide BUN Creatinine Glucose POC Glucose 114 H 129 H 124 H Lactic Acid Calcium Phosphorus Magnesium Direct Bilirubin AST ALT Alkaline Phosphatase Lactate Dehydrogenase Troponin T C-Reactive Protein Total Protein Albumin Prealbumin Triglycerides Cholesterol LDL Cholesterol Direct HDL Cholesterol Urine pH Urine WBC (Auto) Urine Creatinine Urine Total Protein Fluid Total Protein Vancomycin Trough Rheumatoid Factor Complement C4 Miscellaneous Test Crossmatch 12/05/16 12/05/16 12/05/16 05:00 05:00 05:18 WBC RBC Hgb Hct MCV MCH MCHC RDW Plt Count Lymph % (Auto) [place] % (Auto) Lymph # [place] # Baso # Seg Neutrophils % Seg Neuts % (Manual) Lymphocytes % (Manual) Monocytes % (Manual) Eosinophils % (Manual) Basophils % (Manual) Nucleated RBC % Seg Neutrophils # Seg Neutrophils # Man Lymphocytes # (Manual) Monocytes # (Manual) Eosinophils # (Manual) Basophils # (Manual) PT INR Fibrinogen dRVVT Confirm Interp Factor V Activity POC ABG pH POC ABG pCO2 POC ABG pO2 ABG pO2 ABG HCO3 ABG Base Excess ABG Hemoglobin Oxyhemoglobin Sodium Potassium Chloride Carbon Dioxide 21 L BUN 85 H Creatinine 1.9 H Glucose 131 H POC Glucose 154 H Lactic Acid Calcium Phosphorus Magnesium Direct Bilirubin AST ALT Alkaline Phosphatase Lactate Dehydrogenase Troponin T C-Reactive Protein 19.30 H Total Protein Albumin Prealbumin Triglycerides Cholesterol LDL Cholesterol Direct HDL Cholesterol Urine pH Urine WBC (Auto) Urine Creatinine Urine Total Protein Fluid Total Protein Vancomycin Trough Rheumatoid Factor Complement C4 Miscellaneous Test Crossmatch 12/05/16 12/05/16 12/05/16 11:43 17:46 23:25 WBC RBC Hgb Hct MCV MCH MCHC RDW Plt Count Lymph % (Auto) [place] % (Auto) Lymph # [place] # Baso # Seg Neutrophils % Seg Neuts % (Manual) Lymphocytes % (Manual) Monocytes % (Manual) Eosinophils % (Manual) Basophils % (Manual) Nucleated RBC % Seg Neutrophils # Seg Neutrophils # Man Lymphocytes # (Manual) Monocytes # (Manual) Eosinophils # (Manual) Basophils # (Manual) PT INR Fibrinogen dRVVT Confirm Interp Factor V Activity POC ABG pH POC ABG pCO2 POC ABG pO2 ABG pO2 ABG HCO3 ABG Base Excess ABG Hemoglobin Oxyhemoglobin Sodium Potassium Chloride Carbon Dioxide BUN Creatinine Glucose POC Glucose 117 H 113 H 111 H Lactic Acid Calcium Phosphorus Magnesium Direct Bilirubin AST ALT Alkaline Phosphatase Lactate Dehydrogenase Troponin T C-Reactive Protein Total Protein Albumin Prealbumin Triglycerides Cholesterol LDL Cholesterol Direct HDL Cholesterol Urine pH Urine WBC (Auto) Urine Creatinine Urine Total Protein Fluid Total Protein Vancomycin Trough Rheumatoid Factor Complement C4 Miscellaneous Test Crossmatch 12/05/16 12/06/16 12/06/16 Unknown 04:58 06:00 WBC RBC Hgb Hct MCV MCH MCHC RDW Plt Count Lymph % (Auto) [place] % (Auto) Lymph # [place] # Baso # Seg Neutrophils % Seg Neuts % (Manual) Lymphocytes % (Manual) Monocytes % (Manual) Eosinophils % (Manual) Basophils % (Manual) Nucleated RBC % Seg Neutrophils # Seg Neutrophils # Man Lymphocytes # (Manual) Monocytes # (Manual) Eosinophils # (Manual) Basophils # (Manual) PT INR Fibrinogen dRVVT Confirm Interp Factor V Activity POC ABG pH POC ABG pCO2 POC ABG pO2 ABG pO2 75.2 L ABG HCO3 ABG Base Excess -3.4 L ABG Hemoglobin 7.4 L Oxyhemoglobin 94.5 L Sodium Potassium Chloride Carbon Dioxide 20 L BUN 99 H Creatinine 2.1 H Glucose 126 H POC Glucose 145 H Lactic Acid Calcium Phosphorus 4.80 H Magnesium Direct Bilirubin AST ALT Alkaline Phosphatase Lactate Dehydrogenase Troponin T C-Reactive Protein Total Protein Albumin Prealbumin Triglycerides Cholesterol LDL Cholesterol Direct HDL Cholesterol Urine pH Urine WBC (Auto) Urine Creatinine Urine Total Protein Fluid Total Protein Vancomycin Trough Rheumatoid Factor Complement C4 Miscellaneous Test Crossmatch 12/06/16 12/06/16 12/06/16 06:46 11:54 17:55 WBC RBC Hgb 8.3 L Hct 26.4 L MCV MCH MCHC RDW Plt Count Lymph % (Auto) [place] % (Auto) Lymph # [place] # Baso # Seg Neutrophils % Seg Neuts % (Manual) Lymphocytes % (Manual) Monocytes % (Manual) Eosinophils % (Manual) Basophils % (Manual) Nucleated RBC % Seg Neutrophils # Seg Neutrophils # Man Lymphocytes # (Manual) Monocytes # (Manual) Eosinophils # (Manual) Basophils # (Manual) PT INR Fibrinogen dRVVT Confirm Interp Factor V Activity POC ABG pH POC ABG pCO2 POC ABG pO2 ABG pO2 ABG HCO3 ABG Base Excess ABG Hemoglobin Oxyhemoglobin Sodium Potassium Chloride Carbon Dioxide BUN Creatinine Glucose POC Glucose 126 H 157 H Lactic Acid Calcium Phosphorus Magnesium Direct Bilirubin AST ALT Alkaline Phosphatase Lactate Dehydrogenase Troponin T C-Reactive Protein Total Protein Albumin Prealbumin Triglycerides Cholesterol LDL Cholesterol Direct HDL Cholesterol Urine pH Urine WBC (Auto) Urine Creatinine Urine Total Protein Fluid Total Protein Vancomycin Trough Rheumatoid Factor Complement C4 Miscellaneous Test Crossmatch 12/06/16 12/07/16 12/07/16 23:59 05:34 06:30 WBC RBC Hgb Hct MCV MCH MCHC RDW Plt Count Lymph % (Auto) [place] % (Auto) Lymph # [place] # Baso # Seg Neutrophils % Seg Neuts % (Manual) Lymphocytes % (Manual) Monocytes % (Manual) Eosinophils % (Manual) Basophils % (Manual) Nucleated RBC % Seg Neutrophils # Seg Neutrophils # Man Lymphocytes # (Manual) Monocytes # (Manual) Eosinophils # (Manual) Basophils # (Manual) PT INR Fibrinogen dRVVT Confirm Interp Factor V Activity POC ABG pH POC ABG pCO2 POC ABG pO2 ABG pO2 ABG HCO3 ABG Base Excess ABG Hemoglobin Oxyhemoglobin Sodium Potassium Chloride Carbon Dioxide BUN 67 H Creatinine 1.4 H Glucose 126 H POC Glucose 129 H 129 H Lactic Acid Calcium Phosphorus Magnesium Direct Bilirubin AST ALT Alkaline Phosphatase Lactate Dehydrogenase Troponin T C-Reactive Protein Total Protein Albumin Prealbumin Triglycerides Cholesterol LDL Cholesterol Direct HDL Cholesterol Urine pH Urine WBC (Auto) Urine Creatinine Urine Total Protein Fluid Total Protein Vancomycin Trough Rheumatoid Factor Complement C4 Miscellaneous Test Crossmatch 12/07/16 12/07/16 12/07/16 06:30 08:00 09:45 WBC 18.8 H RBC 2.52 L Hgb 6.9 L 6.8 L Hct 21.2 L 21.1 L MCV MCH 27 L MCHC RDW 18.0 H Plt Count Lymph % (Auto) [place] % (Auto) 9.9 H Lymph # [place] # 1.9 H Baso # Seg Neutrophils % 71.8 H Seg Neuts % (Manual) Lymphocytes % (Manual) Monocytes % (Manual) Eosinophils % (Manual) Basophils % (Manual) Nucleated RBC % Seg Neutrophils # 13.5 H Seg Neutrophils # Man Lymphocytes # (Manual) Monocytes # (Manual) Eosinophils # (Manual) Basophils # (Manual) PT INR Fibrinogen dRVVT Confirm Interp Factor V Activity POC ABG pH POC ABG pCO2 POC ABG pO2 ABG pO2 ABG HCO3 ABG Base Excess ABG Hemoglobin Oxyhemoglobin Sodium Potassium Chloride Carbon Dioxide BUN Creatinine Glucose POC Glucose Lactic Acid Calcium Phosphorus Magnesium Direct Bilirubin AST ALT Alkaline Phosphatase Lactate Dehydrogenase Troponin T C-Reactive Protein Total Protein Albumin Prealbumin Triglycerides Cholesterol LDL Cholesterol Direct HDL Cholesterol Urine pH Urine WBC (Auto) Urine Creatinine Urine Total Protein Fluid Total Protein Vancomycin Trough Rheumatoid Factor Complement C4 Miscellaneous Test Crossmatch See Detail 12/07/16 12/07/16 12/07/16 11:44 18:19 23:59 WBC RBC Hgb Hct MCV MCH MCHC RDW Plt Count Lymph % (Auto) [place] % (Auto) Lymph # [place] # Baso # Seg Neutrophils % Seg Neuts % (Manual) Lymphocytes % (Manual) Monocytes % (Manual) Eosinophils % (Manual) Basophils % (Manual) Nucleated RBC % Seg Neutrophils # Seg Neutrophils # Man Lymphocytes # (Manual) Monocytes # (Manual) Eosinophils # (Manual) Basophils # (Manual) PT INR Fibrinogen dRVVT Confirm Interp Factor V Activity POC ABG pH POC ABG pCO2 POC ABG pO2 ABG pO2 ABG HCO3 ABG Base Excess ABG Hemoglobin Oxyhemoglobin Sodium Potassium Chloride Carbon Dioxide BUN Creatinine Glucose POC Glucose 137 H 138 H 133 H Lactic Acid Calcium Phosphorus Magnesium Direct Bilirubin AST ALT Alkaline Phosphatase Lactate Dehydrogenase Troponin T C-Reactive Protein Total Protein Albumin Prealbumin Triglycerides Cholesterol LDL Cholesterol Direct HDL Cholesterol Urine pH Urine WBC (Auto) Urine Creatinine Urine Total Protein Fluid Total Protein Vancomycin Trough Rheumatoid Factor Complement C4 Miscellaneous Test Crossmatch 12/08/16 12/08/16 12/08/16 05:25 05:30 05:30 WBC 23.8 H RBC 2.88 L Hgb 8.1 L Hct 24.3 L MCV MCH MCHC RDW 16.7 H Plt Count Lymph % (Auto) [place] % (Auto) Lymph # [place] # Baso # Seg Neutrophils % Seg Neuts % (Manual) 76.0 H Lymphocytes % (Manual) 9.0 L Monocytes % (Manual) 9.0 H Eosinophils % (Manual) Basophils % (Manual) Nucleated RBC % Seg Neutrophils # Seg Neutrophils # Man 18.1 H Lymphocytes # (Manual) Monocytes # (Manual) 2.1 H Eosinophils # (Manual) Basophils # (Manual) PT INR Fibrinogen dRVVT Confirm Interp Factor V Activity POC ABG pH POC ABG pCO2 POC ABG pO2 ABG pO2 ABG HCO3 ABG Base Excess ABG Hemoglobin Oxyhemoglobin Sodium Potassium Chloride Carbon Dioxide 21 L BUN 76 H Creatinine 1.6 H Glucose 133 H POC Glucose 177 H Lactic Acid Calcium Phosphorus Magnesium Direct Bilirubin AST ALT Alkaline Phosphatase Lactate Dehydrogenase Troponin T C-Reactive Protein Total Protein Albumin Prealbumin Triglycerides Cholesterol LDL Cholesterol Direct HDL Cholesterol Urine pH Urine WBC (Auto) Urine Creatinine Urine Total Protein Fluid Total Protein Vancomycin Trough Rheumatoid Factor Complement C4 Miscellaneous Test Crossmatch 12/08/16 12/08/16 12/09/16 11:45 18:00 00:00 WBC RBC Hgb Hct MCV MCH MCHC RDW Plt Count Lymph % (Auto) [place] % (Auto) Lymph # [place] # Baso # Seg Neutrophils % Seg Neuts % (Manual) Lymphocytes % (Manual) Monocytes % (Manual) Eosinophils % (Manual) Basophils % (Manual) Nucleated RBC % Seg Neutrophils # Seg Neutrophils # Man Lymphocytes # (Manual) Monocytes # (Manual) Eosinophils # (Manual) Basophils # (Manual) PT INR Fibrinogen dRVVT Confirm Interp Factor V Activity POC ABG pH POC ABG pCO2 POC ABG pO2 ABG pO2 ABG HCO3 ABG Base Excess ABG Hemoglobin Oxyhemoglobin Sodium Potassium Chloride Carbon Dioxide BUN Creatinine Glucose POC Glucose 163 H 123 H 137 H Lactic Acid Calcium Phosphorus Magnesium Direct Bilirubin AST ALT Alkaline Phosphatase Lactate Dehydrogenase Troponin T C-Reactive Protein Total Protein Albumin Prealbumin Triglycerides Cholesterol LDL Cholesterol Direct HDL Cholesterol Urine pH Urine WBC (Auto) Urine Creatinine Urine Total Protein Fluid Total Protein Vancomycin Trough Rheumatoid Factor Complement C4 Miscellaneous Test Crossmatch 12/09/16 12/09/16 12/09/16 05:34 06:00 06:00 WBC 15.5 H RBC 2.87 L Hgb 8.0 L Hct 24.2 L MCV MCH MCHC RDW 17.2 H Plt Count Lymph % (Auto) [place] % (Auto) 11.6 H Lymph # [place] # 1.8 H Baso # Seg Neutrophils % 70.8 H Seg Neuts % (Manual) Lymphocytes % (Manual) Monocytes % (Manual) Eosinophils % (Manual) Basophils % (Manual) Nucleated RBC % Seg Neutrophils # 11.0 H Seg Neutrophils # Man Lymphocytes # (Manual) Monocytes # (Manual) Eosinophils # (Manual) Basophils # (Manual) PT INR Fibrinogen dRVVT Confirm Interp Factor V Activity POC ABG pH POC ABG pCO2 POC ABG pO2 ABG pO2 ABG HCO3 ABG Base Excess ABG Hemoglobin Oxyhemoglobin Sodium Potassium Chloride Carbon Dioxide BUN 51 H Creatinine Glucose 117 H POC Glucose 136 H Lactic Acid Calcium Phosphorus Magnesium Direct Bilirubin AST ALT Alkaline Phosphatase Lactate Dehydrogenase Troponin T C-Reactive Protein Total Protein Albumin Prealbumin Triglycerides Cholesterol LDL Cholesterol Direct HDL Cholesterol Urine pH Urine WBC (Auto) Urine Creatinine Urine Total Protein Fluid Total Protein Vancomycin Trough Rheumatoid Factor Complement C4 Miscellaneous Test Crossmatch 12/09/16 12/09/16 12/09/16 12:29 17:52 23:10 WBC RBC Hgb Hct MCV MCH MCHC RDW Plt Count Lymph % (Auto) [place] % (Auto) Lymph # [place] # Baso # Seg Neutrophils % Seg Neuts % (Manual) Lymphocytes % (Manual) Monocytes % (Manual) Eosinophils % (Manual) Basophils % (Manual) Nucleated RBC % Seg Neutrophils # Seg Neutrophils # Man Lymphocytes # (Manual) Monocytes # (Manual) Eosinophils # (Manual) Basophils # (Manual) PT INR Fibrinogen dRVVT Confirm Interp Factor V Activity POC ABG pH POC ABG pCO2 POC ABG pO2 ABG pO2 ABG HCO3 ABG Base Excess ABG Hemoglobin Oxyhemoglobin Sodium Potassium Chloride Carbon Dioxide BUN Creatinine Glucose POC Glucose 139 H 140 H 129 H Lactic Acid Calcium Phosphorus Magnesium Direct Bilirubin AST ALT Alkaline Phosphatase Lactate Dehydrogenase Troponin T C-Reactive Protein Total Protein Albumin Prealbumin Triglycerides Cholesterol LDL Cholesterol Direct HDL Cholesterol Urine pH Urine WBC (Auto) Urine Creatinine Urine Total Protein Fluid Total Protein Vancomycin Trough Rheumatoid Factor Complement C4 Miscellaneous Test Crossmatch 12/10/16 12/10/16 12/10/16 05:00 05:00 06:54 WBC 15.7 H RBC 2.87 L Hgb 8.2 L Hct 24.4 L MCV MCH MCHC RDW 17.2 H Plt Count Lymph % (Auto) [place] % (Auto) 8.3 H Lymph # [place] # 1.3 H Baso # Seg Neutrophils % 72.8 H Seg Neuts % (Manual) Lymphocytes % (Manual) Monocytes % (Manual) Eosinophils % (Manual) Basophils % (Manual) Nucleated RBC % Seg Neutrophils # 11.4 H Seg Neutrophils # Man Lymphocytes # (Manual) Monocytes # (Manual) Eosinophils # (Manual) Basophils # (Manual) PT INR Fibrinogen dRVVT Confirm Interp Factor V Activity POC ABG pH POC ABG pCO2 POC ABG pO2 ABG pO2 ABG HCO3 ABG Base Excess ABG Hemoglobin Oxyhemoglobin Sodium Potassium Chloride Carbon Dioxide BUN 64 H Creatinine 1.4 H Glucose 134 H POC Glucose 154 H Lactic Acid Calcium Phosphorus Magnesium Direct Bilirubin AST ALT Alkaline Phosphatase Lactate Dehydrogenase Troponin T C-Reactive Protein Total Protein Albumin Prealbumin Triglycerides Cholesterol LDL Cholesterol Direct HDL Cholesterol Urine pH Urine WBC (Auto) Urine Creatinine Urine Total Protein Fluid Total Protein Vancomycin Trough Rheumatoid Factor Complement C4 Miscellaneous Test Crossmatch 12/10/16 12/10/16 12/10/16 11:58 17:29 23:52 WBC RBC Hgb Hct MCV MCH MCHC RDW Plt Count Lymph % (Auto) [place] % (Auto) Lymph # [place] # Baso # Seg Neutrophils % Seg Neuts % (Manual) Lymphocytes % (Manual) Monocytes % (Manual) Eosinophils % (Manual) Basophils % (Manual) Nucleated RBC % Seg Neutrophils # Seg Neutrophils # Man Lymphocytes # (Manual) Monocytes # (Manual) Eosinophils # (Manual) Basophils # (Manual) PT INR Fibrinogen dRVVT Confirm Interp Factor V Activity POC ABG pH POC ABG pCO2 POC ABG pO2 ABG pO2 ABG HCO3 ABG Base Excess ABG Hemoglobin Oxyhemoglobin Sodium Potassium Chloride Carbon Dioxide BUN Creatinine Glucose POC Glucose 144 H 163 H 125 H Lactic Acid Calcium Phosphorus Magnesium Direct Bilirubin AST ALT Alkaline Phosphatase Lactate Dehydrogenase Troponin T C-Reactive Protein Total Protein Albumin Prealbumin Triglycerides Cholesterol LDL Cholesterol Direct HDL Cholesterol Urine pH Urine WBC (Auto) Urine Creatinine Urine Total Protein Fluid Total Protein Vancomycin Trough Rheumatoid Factor Complement C4 Miscellaneous Test Crossmatch 12/11/16 12/11/16 12/11/16 05:38 06:30 06:30 WBC 14.4 H RBC 2.76 L Hgb 7.7 L Hct 23.4 L MCV MCH MCHC RDW 17.2 H Plt Count Lymph % (Auto) [place] % (Auto) 8.8 H Lymph # [place] # 1.3 H Baso # Seg Neutrophils % 72.5 H Seg Neuts % (Manual) Lymphocytes % (Manual) Monocytes % (Manual) Eosinophils % (Manual) Basophils % (Manual) Nucleated RBC % Seg Neutrophils # 10.5 H Seg Neutrophils # Man Lymphocytes # (Manual) Monocytes # (Manual) Eosinophils # (Manual) Basophils # (Manual) PT INR Fibrinogen dRVVT Confirm Interp Factor V Activity POC ABG pH POC ABG pCO2 POC ABG pO2 ABG pO2 ABG HCO3 ABG Base Excess ABG Hemoglobin Oxyhemoglobin Sodium Potassium Chloride Carbon Dioxide BUN 43 H Creatinine Glucose 124 H POC Glucose 141 H Lactic Acid Calcium 8.3 L Phosphorus Magnesium 1.60 L Direct Bilirubin AST ALT Alkaline Phosphatase Lactate Dehydrogenase Troponin T C-Reactive Protein Total Protein Albumin Prealbumin Triglycerides Cholesterol LDL Cholesterol Direct HDL Cholesterol Urine pH Urine WBC (Auto) Urine Creatinine Urine Total Protein Fluid Total Protein Vancomycin Trough Rheumatoid Factor Complement C4 Miscellaneous Test Crossmatch 12/11/16 12/11/16 12/11/16 11:15 17:59 23:48 WBC RBC Hgb Hct MCV MCH MCHC RDW Plt Count Lymph % (Auto) [place] % (Auto) Lymph # [place] # Baso # Seg Neutrophils % Seg Neuts % (Manual) Lymphocytes % (Manual) Monocytes % (Manual) Eosinophils % (Manual) Basophils % (Manual) Nucleated RBC % Seg Neutrophils # Seg Neutrophils # Man Lymphocytes # (Manual) Monocytes # (Manual) Eosinophils # (Manual) Basophils # (Manual) PT INR Fibrinogen dRVVT Confirm Interp Factor V Activity POC ABG pH POC ABG pCO2 POC ABG pO2 ABG pO2 ABG HCO3 ABG Base Excess ABG Hemoglobin Oxyhemoglobin Sodium Potassium Chloride Carbon Dioxide BUN Creatinine Glucose POC Glucose 188 H 106 H 119 H Lactic Acid Calcium Phosphorus Magnesium Direct Bilirubin AST ALT Alkaline Phosphatase Lactate Dehydrogenase Troponin T C-Reactive Protein Total Protein Albumin Prealbumin Triglycerides Cholesterol LDL Cholesterol Direct HDL Cholesterol Urine pH Urine WBC (Auto) Urine Creatinine Urine Total Protein Fluid Total Protein Vancomycin Trough Rheumatoid Factor Complement C4 Miscellaneous Test Crossmatch 12/12/16 12/12/16 12/12/16 05:00 06:01 12:20 WBC 16.7 H RBC 2.87 L Hgb 8.0 L Hct 24.2 L MCV MCH MCHC RDW 17.6 H Plt Count Lymph % (Auto) [place] % (Auto) Lymph # [place] # 1.2 H Baso # Seg Neutrophils % 75.3 H Seg Neuts % (Manual) Lymphocytes % (Manual) Monocytes % (Manual) Eosinophils % (Manual) Basophils % (Manual) Nucleated RBC % Seg Neutrophils # 12.6 H Seg Neutrophils # Man Lymphocytes # (Manual) Monocytes # (Manual) Eosinophils # (Manual) Basophils # (Manual) PT INR Fibrinogen dRVVT Confirm Interp Factor V Activity POC ABG pH POC ABG pCO2 POC ABG pO2 ABG pO2 ABG HCO3 ABG Base Excess ABG Hemoglobin Oxyhemoglobin Sodium Potassium Chloride Carbon Dioxide BUN Creatinine Glucose POC Glucose 134 H 149 H Lactic Acid Calcium Phosphorus Magnesium Direct Bilirubin AST ALT Alkaline Phosphatase Lactate Dehydrogenase Troponin T C-Reactive Protein Total Protein Albumin Prealbumin Triglycerides Cholesterol LDL Cholesterol Direct HDL Cholesterol Urine pH Urine WBC (Auto) Urine Creatinine Urine Total Protein Fluid Total Protein Vancomycin Trough Rheumatoid Factor Complement C4 Miscellaneous Test Crossmatch 12/12/16 12/12/16 12/12/16 17:38 23:01 Unknown WBC RBC Hgb Hct MCV MCH MCHC RDW Plt Count Lymph % (Auto) [place] % (Auto) Lymph # [place] # Baso # Seg Neutrophils % Seg Neuts % (Manual) Lymphocytes % (Manual) Monocytes % (Manual) Eosinophils % (Manual) Basophils % (Manual) Nucleated RBC % Seg Neutrophils # Seg Neutrophils # Man Lymphocytes # (Manual) Monocytes # (Manual) Eosinophils # (Manual) Basophils # (Manual) PT INR Fibrinogen dRVVT Confirm Interp Factor V Activity POC ABG pH POC ABG pCO2 POC ABG pO2 ABG pO2 ABG HCO3 ABG Base Excess ABG Hemoglobin Oxyhemoglobin Sodium Potassium Chloride Carbon Dioxide BUN 60 H Creatinine 1.3 H Glucose 126 H POC Glucose 127 H 144 H Lactic Acid Calcium Phosphorus Magnesium Direct Bilirubin AST ALT Alkaline Phosphatase Lactate Dehydrogenase Troponin T C-Reactive Protein Total Protein Albumin Prealbumin Triglycerides Cholesterol LDL Cholesterol Direct HDL Cholesterol Urine pH Urine WBC (Auto) Urine Creatinine Urine Total Protein Fluid Total Protein Vancomycin Trough Rheumatoid Factor Complement C4 Miscellaneous Test Crossmatch 12/13/16 12/13/16 12/13/16 04:00 04:00 05:19 WBC 18.7 H RBC 2.89 L Hgb 8.3 L Hct 24.6 L MCV MCH MCHC RDW 17.5 H Plt Count Lymph % (Auto) [place] % (Auto) Lymph # [place] # 1.3 H Baso # Seg Neutrophils % 71.5 H Seg Neuts % (Manual) Lymphocytes % (Manual) Monocytes % (Manual) Eosinophils % (Manual) Basophils % (Manual) Nucleated RBC % Seg Neutrophils # 13.4 H Seg Neutrophils # Man Lymphocytes # (Manual) Monocytes # (Manual) Eosinophils # (Manual) Basophils # (Manual) PT INR Fibrinogen dRVVT Confirm Interp Factor V Activity POC ABG pH POC ABG pCO2 POC ABG pO2 ABG pO2 ABG HCO3 ABG Base Excess ABG Hemoglobin Oxyhemoglobin Sodium Potassium Chloride Carbon Dioxide BUN 73 H Creatinine 1.5 H Glucose 141 H POC Glucose 171 H Lactic Acid Calcium Phosphorus Magnesium Direct Bilirubin AST ALT Alkaline Phosphatase Lactate Dehydrogenase Troponin T C-Reactive Protein Total Protein Albumin Prealbumin Triglycerides Cholesterol LDL Cholesterol Direct HDL Cholesterol Urine pH Urine WBC (Auto) Urine Creatinine Urine Total Protein Fluid Total Protein Vancomycin Trough Rheumatoid Factor Complement C4 Miscellaneous Test Crossmatch 12/13/16 12/13/16 12/14/16 12:28 16:48 00:01 WBC RBC Hgb Hct MCV MCH MCHC RDW Plt Count Lymph % (Auto) [place] % (Auto) Lymph # [place] # Baso # Seg Neutrophils % Seg Neuts % (Manual) Lymphocytes % (Manual) Monocytes % (Manual) Eosinophils % (Manual) Basophils % (Manual) Nucleated RBC % Seg Neutrophils # Seg Neutrophils # Man Lymphocytes # (Manual) Monocytes # (Manual) Eosinophils # (Manual) Basophils # (Manual) PT INR Fibrinogen dRVVT Confirm Interp Factor V Activity POC ABG pH POC ABG pCO2 POC ABG pO2 ABG pO2 ABG HCO3 ABG Base Excess ABG Hemoglobin Oxyhemoglobin Sodium Potassium Chloride Carbon Dioxide BUN Creatinine Glucose POC Glucose 206 H 173 H 139 H Lactic Acid Calcium Phosphorus Magnesium Direct Bilirubin AST ALT Alkaline Phosphatase Lactate Dehydrogenase Troponin T C-Reactive Protein Total Protein Albumin Prealbumin Triglycerides Cholesterol LDL Cholesterol Direct HDL Cholesterol Urine pH Urine WBC (Auto) Urine Creatinine Urine Total Protein Fluid Total Protein Vancomycin Trough Rheumatoid Factor Complement C4 Miscellaneous Test Crossmatch 12/14/16 12/14/16 12/14/16 05:16 06:10 11:17 WBC RBC Hgb Hct MCV MCH MCHC RDW Plt Count Lymph % (Auto) [place] % (Auto) Lymph # [place] # Baso # Seg Neutrophils % Seg Neuts % (Manual) Lymphocytes % (Manual) Monocytes % (Manual) Eosinophils % (Manual) Basophils % (Manual) Nucleated RBC % Seg Neutrophils # Seg Neutrophils # Man Lymphocytes # (Manual) Monocytes # (Manual) Eosinophils # (Manual) Basophils # (Manual) PT INR Fibrinogen dRVVT Confirm Interp Factor V Activity POC ABG pH POC ABG pCO2 POC ABG pO2 ABG pO2 ABG HCO3 ABG Base Excess ABG Hemoglobin Oxyhemoglobin Sodium Potassium Chloride Carbon Dioxide BUN 57 H Creatinine 1.4 H Glucose 135 H POC Glucose 158 H 137 H Lactic Acid Calcium Phosphorus Magnesium Direct Bilirubin AST ALT Alkaline Phosphatase Lactate Dehydrogenase Troponin T C-Reactive Protein Total Protein Albumin Prealbumin Triglycerides Cholesterol LDL Cholesterol Direct HDL Cholesterol Urine pH Urine WBC (Auto) Urine Creatinine Urine Total Protein Fluid Total Protein Vancomycin Trough Rheumatoid Factor Complement C4 Miscellaneous Test Crossmatch 12/14/16 12/14/16 12/15/16 17:52 23:27 04:00 WBC RBC Hgb Hct MCV MCH MCHC RDW Plt Count Lymph % (Auto) [place] % (Auto) Lymph # [place] # Baso # Seg Neutrophils % Seg Neuts % (Manual) Lymphocytes % (Manual) Monocytes % (Manual) Eosinophils % (Manual) Basophils % (Manual) Nucleated RBC % Seg Neutrophils # Seg Neutrophils # Man Lymphocytes # (Manual) Monocytes # (Manual) Eosinophils # (Manual) Basophils # (Manual) PT INR Fibrinogen dRVVT Confirm Interp Factor V Activity POC ABG pH POC ABG pCO2 POC ABG pO2 ABG pO2 ABG HCO3 ABG Base Excess ABG Hemoglobin Oxyhemoglobin Sodium Potassium Chloride 97.9 L Carbon Dioxide BUN 75 H Creatinine 1.6 H Glucose 122 H POC Glucose 149 H 163 H Lactic Acid Calcium Phosphorus 5.20 H Magnesium Direct Bilirubin AST ALT Alkaline Phosphatase Lactate Dehydrogenase Troponin T C-Reactive Protein Total Protein Albumin Prealbumin Triglycerides Cholesterol LDL Cholesterol Direct HDL Cholesterol Urine pH Urine WBC (Auto) Urine Creatinine Urine Total Protein Fluid Total Protein Vancomycin Trough Rheumatoid Factor Complement C4 Miscellaneous Test Crossmatch 12/15/16 12/15/16 12/15/16 05:50 11:24 17:01 WBC RBC Hgb Hct MCV MCH MCHC RDW Plt Count Lymph % (Auto) [place] % (Auto) Lymph # [place] # Baso # Seg Neutrophils % Seg Neuts % (Manual) Lymphocytes % (Manual) Monocytes % (Manual) Eosinophils % (Manual) Basophils % (Manual) Nucleated RBC % Seg Neutrophils # Seg Neutrophils # Man Lymphocytes # (Manual) Monocytes # (Manual) Eosinophils # (Manual) Basophils # (Manual) PT INR Fibrinogen dRVVT Confirm Interp Factor V Activity POC ABG pH POC ABG pCO2 POC ABG pO2 ABG pO2 ABG HCO3 ABG Base Excess ABG Hemoglobin Oxyhemoglobin Sodium Potassium Chloride Carbon Dioxide BUN Creatinine Glucose POC Glucose 150 H 146 H 167 H Lactic Acid Calcium Phosphorus Magnesium Direct Bilirubin AST ALT Alkaline Phosphatase Lactate Dehydrogenase Troponin T C-Reactive Protein Total Protein Albumin Prealbumin Triglycerides Cholesterol LDL Cholesterol Direct HDL Cholesterol Urine pH Urine WBC (Auto) Urine Creatinine Urine Total Protein Fluid Total Protein Vancomycin Trough Rheumatoid Factor Complement C4 Miscellaneous Test Crossmatch 12/15/16 12/16/16 12/16/16 23:34 05:25 11:24 WBC RBC Hgb Hct MCV MCH MCHC RDW Plt Count Lymph % (Auto) [place] % (Auto) Lymph # [place] # Baso # Seg Neutrophils % Seg Neuts % (Manual) Lymphocytes % (Manual) Monocytes % (Manual) Eosinophils % (Manual) Basophils % (Manual) Nucleated RBC % Seg Neutrophils # Seg Neutrophils # Man Lymphocytes # (Manual) Monocytes # (Manual) Eosinophils # (Manual) Basophils # (Manual) PT INR Fibrinogen dRVVT Confirm Interp Factor V Activity POC ABG pH POC ABG pCO2 POC ABG pO2 ABG pO2 ABG HCO3 ABG Base Excess ABG Hemoglobin Oxyhemoglobin Sodium Potassium Chloride Carbon Dioxide BUN Creatinine Glucose POC Glucose 127 H 139 H 165 H Lactic Acid Calcium Phosphorus Magnesium Direct Bilirubin AST ALT Alkaline Phosphatase Lactate Dehydrogenase Troponin T C-Reactive Protein Total Protein Albumin Prealbumin Triglycerides Cholesterol LDL Cholesterol Direct HDL Cholesterol Urine pH Urine WBC (Auto) Urine Creatinine Urine Total Protein Fluid Total Protein Vancomycin Trough Rheumatoid Factor Complement C4 Miscellaneous Test Crossmatch 12/16/16 12/16/16 12/16/16 15:30 16:25 17:31 WBC 17.8 H RBC 2.38 L Hgb 6.4 L Hct 20.3 L MCV MCH 27 L MCHC RDW 17.4 H Plt Count Lymph % (Auto) [place] % (Auto) Lymph # [place] # Baso # Seg Neutrophils % Seg Neuts % (Manual) Lymphocytes % (Manual) Monocytes % (Manual) 10.0 H Eosinophils % (Manual) Basophils % (Manual) Nucleated RBC % Seg Neutrophils # Seg Neutrophils # Man 8.5 H Lymphocytes # (Manual) Monocytes # (Manual) 1.8 H Eosinophils # (Manual) Basophils # (Manual) PT INR Fibrinogen dRVVT Confirm Interp Factor V Activity POC ABG pH POC ABG pCO2 POC ABG pO2 ABG pO2 ABG HCO3 ABG Base Excess ABG Hemoglobin Oxyhemoglobin Sodium Potassium Chloride Carbon Dioxide BUN Creatinine Glucose POC Glucose 176 H Lactic Acid Calcium Phosphorus Magnesium Direct Bilirubin AST ALT Alkaline Phosphatase Lactate Dehydrogenase Troponin T C-Reactive Protein Total Protein Albumin Prealbumin Triglycerides Cholesterol LDL Cholesterol Direct HDL Cholesterol Urine pH Urine WBC (Auto) Urine Creatinine Urine Total Protein Fluid Total Protein Vancomycin Trough Rheumatoid Factor Complement C4 Miscellaneous Test Crossmatch See Detail 12/17/16 12/17/16 12/17/16 00:14 04:00 05:00 WBC 20.0 H RBC 2.99 L Hgb 8.5 L Hct 25.7 L MCV MCH MCHC RDW 17.2 H Plt Count Lymph % (Auto) [place] % (Auto) Lymph # [place] # Baso # Seg Neutrophils % Seg Neuts % (Manual) Lymphocytes % (Manual) Monocytes % (Manual) Eosinophils % (Manual) Basophils % (Manual) Nucleated RBC % Seg Neutrophils # Seg Neutrophils # Man Lymphocytes # (Manual) Monocytes # (Manual) Eosinophils # (Manual) Basophils # (Manual) PT INR Fibrinogen dRVVT Confirm Interp Factor V Activity POC ABG pH POC ABG pCO2 POC ABG pO2 ABG pO2 ABG HCO3 ABG Base Excess ABG Hemoglobin Oxyhemoglobin Sodium Potassium Chloride 97.7 L Carbon Dioxide BUN 73 H Creatinine 1.7 H Glucose 136 H POC Glucose 148 H Lactic Acid Calcium Phosphorus 2.20 L Magnesium 2.70 H Direct Bilirubin AST ALT Alkaline Phosphatase Lactate Dehydrogenase Troponin T C-Reactive Protein Total Protein Albumin Prealbumin Triglycerides Cholesterol LDL Cholesterol Direct HDL Cholesterol Urine pH Urine WBC (Auto) Urine Creatinine Urine Total Protein Fluid Total Protein Vancomycin Trough Rheumatoid Factor Complement C4 Miscellaneous Test Crossmatch 12/17/16 12/17/16 12/17/16 05:39 12:50 16:32 WBC RBC Hgb Hct MCV MCH MCHC RDW Plt Count Lymph % (Auto) [place] % (Auto) Lymph # [place] # Baso # Seg Neutrophils % Seg Neuts % (Manual) Lymphocytes % (Manual) Monocytes % (Manual) Eosinophils % (Manual) Basophils % (Manual) Nucleated RBC % Seg Neutrophils # Seg Neutrophils # Man Lymphocytes # (Manual) Monocytes # (Manual) Eosinophils # (Manual) Basophils # (Manual) PT INR Fibrinogen dRVVT Confirm Interp Factor V Activity POC ABG pH POC ABG pCO2 POC ABG pO2 ABG pO2 ABG HCO3 ABG Base Excess ABG Hemoglobin Oxyhemoglobin Sodium Potassium Chloride Carbon Dioxide BUN Creatinine Glucose POC Glucose 162 H 146 H 169 H Lactic Acid Calcium Phosphorus Magnesium Direct Bilirubin AST ALT Alkaline Phosphatase Lactate Dehydrogenase Troponin T C-Reactive Protein Total Protein Albumin Prealbumin Triglycerides Cholesterol LDL Cholesterol Direct HDL Cholesterol Urine pH Urine WBC (Auto) Urine Creatinine Urine Total Protein Fluid Total Protein Vancomycin Trough Rheumatoid Factor Complement C4 Miscellaneous Test Crossmatch 10/12/18/16 12/18/16 23:57 05:00 05:32 WBC RBC Hgb Hct MCV MCH MCHC RDW Plt Count Lymph % (Auto) [place] % (Auto) Lymph # [place] # Baso # Seg Neutrophils % Seg Neuts % (Manual) Lymphocytes % (Manual) Monocytes % (Manual) Eosinophils % (Manual) Basophils % (Manual) Nucleated RBC % Seg Neutrophils # Seg Neutrophils # Man Lymphocytes # (Manual) Monocytes # (Manual) Eosinophils # (Manual) Basophils # (Manual) PT INR Fibrinogen dRVVT Confirm Interp Factor V Activity POC ABG pH POC ABG pCO2 POC ABG pO2 ABG pO2 ABG HCO3 ABG Base Excess ABG Hemoglobin Oxyhemoglobin Sodium Potassium Chloride 97.0 L Carbon Dioxide BUN 63 H Creatinine 1.4 H Glucose 174 H POC Glucose 145 H 201 H Lactic Acid Calcium Phosphorus 1.70 L D Magnesium Direct Bilirubin AST ALT Alkaline Phosphatase 257 H Lactate Dehydrogenase Troponin T C-Reactive Protein Total Protein 5.9 L Albumin 1.8 L Prealbumin Triglycerides Cholesterol LDL Cholesterol Direct HDL Cholesterol Urine pH Urine WBC (Auto) Urine Creatinine Urine Total Protein Fluid Total Protein Vancomycin Trough Rheumatoid Factor Complement C4 Miscellaneous Test Crossmatch 12/18/16 12/18/16 12/18/16 11:43 16:52 23:52 WBC RBC Hgb Hct MCV MCH MCHC RDW Plt Count Lymph % (Auto) [place] % (Auto) Lymph # [place] # Baso # Seg Neutrophils % Seg Neuts % (Manual) Lymphocytes % (Manual) Monocytes % (Manual) Eosinophils % (Manual) Basophils % (Manual) Nucleated RBC % Seg Neutrophils # Seg Neutrophils # Man Lymphocytes # (Manual) Monocytes # (Manual) Eosinophils # (Manual) Basophils # (Manual) PT INR Fibrinogen dRVVT Confirm Interp Factor V Activity POC ABG pH POC ABG pCO2 POC ABG pO2 ABG pO2 ABG HCO3 ABG Base Excess ABG Hemoglobin Oxyhemoglobin Sodium Potassium Chloride Carbon Dioxide BUN Creatinine Glucose POC Glucose 177 H 110 H 162 H Lactic Acid Calcium Phosphorus Magnesium Direct Bilirubin AST ALT Alkaline Phosphatase Lactate Dehydrogenase Troponin T C-Reactive Protein Total Protein Albumin Prealbumin Triglycerides Cholesterol LDL Cholesterol Direct HDL Cholesterol Urine pH Urine WBC (Auto) Urine Creatinine Urine Total Protein Fluid Total Protein Vancomycin Trough Rheumatoid Factor Complement C4 Miscellaneous Test Crossmatch 12/19/16 12/19/16 12/19/16 05:02 05:24 09:30 WBC 20.1 H RBC 2.73 L Hgb 7.6 L Hct 23.6 L MCV MCH MCHC RDW 17.6 H Plt Count Lymph % (Auto) [place] % (Auto) Lymph # [place] # Baso # Seg Neutrophils % Seg Neuts % (Manual) Lymphocytes % (Manual) 13.0 L Monocytes % (Manual) Eosinophils % (Manual) Basophils % (Manual) Nucleated RBC % 1.0 H Seg Neutrophils # Seg Neutrophils # Man 12.9 H Lymphocytes # (Manual) Monocytes # (Manual) 1.4 H Eosinophils # (Manual) Basophils # (Manual) 0.2 H PT INR Fibrinogen dRVVT Confirm Interp Factor V Activity POC ABG pH POC ABG pCO2 POC ABG pO2 ABG pO2 ABG HCO3 ABG Base Excess ABG Hemoglobin Oxyhemoglobin Sodium Potassium Chloride 97.8 L Carbon Dioxide BUN 84 H Creatinine 1.6 H Glucose 133 H POC Glucose 134 H Lactic Acid Calcium Phosphorus Magnesium Direct Bilirubin AST ALT Alkaline Phosphatase Lactate Dehydrogenase Troponin T C-Reactive Protein Total Protein Albumin Prealbumin Triglycerides Cholesterol LDL Cholesterol Direct HDL Cholesterol Urine pH Urine WBC (Auto) Urine Creatinine Urine Total Protein Fluid Total Protein Vancomycin Trough Rheumatoid Factor Complement C4 Miscellaneous Test Crossmatch 12/19/16 12/19/16 12/19/16 09:36 11:12 18:29 WBC RBC Hgb Hct MCV MCH MCHC RDW Plt Count Lymph % (Auto) [place] % (Auto) Lymph # [place] # Baso # Seg Neutrophils % Seg Neuts % (Manual) Lymphocytes % (Manual) Monocytes % (Manual) Eosinophils % (Manual) Basophils % (Manual) Nucleated RBC % Seg Neutrophils # Seg Neutrophils # Man Lymphocytes # (Manual) Monocytes # (Manual) Eosinophils # (Manual) Basophils # (Manual) PT INR Fibrinogen dRVVT Confirm Interp Factor V Activity POC ABG pH 7.503 H POC ABG pCO2 30.1 L POC ABG pO2 ABG pO2 ABG HCO3 ABG Base Excess ABG Hemoglobin Oxyhemoglobin Sodium Potassium Chloride Carbon Dioxide BUN Creatinine Glucose POC Glucose 138 H 156 H Lactic Acid Calcium Phosphorus Magnesium Direct Bilirubin AST ALT Alkaline Phosphatase Lactate Dehydrogenase Troponin T C-Reactive Protein Total Protein Albumin Prealbumin Triglycerides Cholesterol LDL Cholesterol Direct HDL Cholesterol Urine pH Urine WBC (Auto) Urine Creatinine Urine Total Protein Fluid Total Protein Vancomycin Trough Rheumatoid Factor Complement C4 Miscellaneous Test Crossmatch 12/20/16 12/20/16 12/20/16 00:03 06:17 07:07 WBC RBC Hgb Hct MCV MCH MCHC RDW Plt Count Lymph % (Auto) [place] % (Auto) Lymph # [place] # Baso # Seg Neutrophils % Seg Neuts % (Manual) Lymphocytes % (Manual) Monocytes % (Manual) Eosinophils % (Manual) Basophils % (Manual) Nucleated RBC % Seg Neutrophils # Seg Neutrophils # Man Lymphocytes # (Manual) Monocytes # (Manual) Eosinophils # (Manual) Basophils # (Manual) PT INR Fibrinogen dRVVT Confirm Interp Factor V Activity POC ABG pH POC ABG pCO2 POC ABG pO2 ABG pO2 ABG HCO3 ABG Base Excess ABG Hemoglobin Oxyhemoglobin Sodium Potassium Chloride 97.1 L Carbon Dioxide 20 L BUN 97 H Creatinine 1.8 H Glucose 153 H POC Glucose 152 H 175 H Lactic Acid Calcium Phosphorus Magnesium Direct Bilirubin AST ALT Alkaline Phosphatase Lactate Dehydrogenase Troponin T C-Reactive Protein Total Protein Albumin Prealbumin Triglycerides Cholesterol LDL Cholesterol Direct HDL Cholesterol Urine pH Urine WBC (Auto) Urine Creatinine Urine Total Protein Fluid Total Protein Vancomycin Trough Rheumatoid Factor Complement C4 Miscellaneous Test Crossmatch 12/20/16 12/20/16 12/20/16 12:00 17:42 23:53 WBC RBC Hgb Hct MCV MCH MCHC RDW Plt Count Lymph % (Auto) [place] % (Auto) Lymph # [place] # Baso # Seg Neutrophils % Seg Neuts % (Manual) Lymphocytes % (Manual) Monocytes % (Manual) Eosinophils % (Manual) Basophils % (Manual) Nucleated RBC % Seg Neutrophils # Seg Neutrophils # Man Lymphocytes # (Manual) Monocytes # (Manual) Eosinophils # (Manual) Basophils # (Manual) PT INR Fibrinogen dRVVT Confirm Interp Factor V Activity POC ABG pH POC ABG pCO2 POC ABG pO2 ABG pO2 ABG HCO3 ABG Base Excess ABG Hemoglobin Oxyhemoglobin Sodium Potassium Chloride Carbon Dioxide BUN Creatinine Glucose POC Glucose 141 H 156 H 132 H Lactic Acid Calcium Phosphorus Magnesium Direct Bilirubin AST ALT Alkaline Phosphatase Lactate Dehydrogenase Troponin T C-Reactive Protein Total Protein Albumin Prealbumin Triglycerides Cholesterol LDL Cholesterol Direct HDL Cholesterol Urine pH Urine WBC (Auto) Urine Creatinine Urine Total Protein Fluid Total Protein Vancomycin Trough Rheumatoid Factor Complement C4 Miscellaneous Test Crossmatch 12/21/16 12/21/16 12/21/16 05:49 08:50 12:19 WBC RBC Hgb Hct MCV MCH MCHC RDW Plt Count Lymph % (Auto) [place] % (Auto) Lymph # [place] # Baso # Seg Neutrophils % Seg Neuts % (Manual) Lymphocytes % (Manual) Monocytes % (Manual) Eosinophils % (Manual) Basophils % (Manual) Nucleated RBC % Seg Neutrophils # Seg Neutrophils # Man Lymphocytes # (Manual) Monocytes # (Manual) Eosinophils # (Manual) Basophils # (Manual) PT INR Fibrinogen dRVVT Confirm Interp Factor V Activity POC ABG pH POC ABG pCO2 POC ABG pO2 ABG pO2 ABG HCO3 ABG Base Excess ABG Hemoglobin Oxyhemoglobin Sodium Potassium 5.2 H D Chloride Carbon Dioxide BUN 63 H Creatinine Glucose 122 H POC Glucose 132 H 136 H Lactic Acid Calcium 8.3 L Phosphorus Magnesium Direct Bilirubin AST ALT Alkaline Phosphatase Lactate Dehydrogenase Troponin T C-Reactive Protein Total Protein Albumin Prealbumin Triglycerides Cholesterol LDL Cholesterol Direct HDL Cholesterol Urine pH Urine WBC (Auto) Urine Creatinine Urine Total Protein Fluid Total Protein Vancomycin Trough Rheumatoid Factor Complement C4 Miscellaneous Test Crossmatch 12/21/16 12/21/16 12/22/16 17:22 23:58 05:49 WBC RBC Hgb Hct MCV MCH MCHC RDW Plt Count Lymph % (Auto) [place] % (Auto) Lymph # [place] # Baso # Seg Neutrophils % Seg Neuts % (Manual) Lymphocytes % (Manual) Monocytes % (Manual) Eosinophils % (Manual) Basophils % (Manual) Nucleated RBC % Seg Neutrophils # Seg Neutrophils # Man Lymphocytes # (Manual) Monocytes # (Manual) Eosinophils # (Manual) Basophils # (Manual) PT INR Fibrinogen dRVVT Confirm Interp Factor V Activity POC ABG pH POC ABG pCO2 POC ABG pO2 ABG pO2 ABG HCO3 ABG Base Excess ABG Hemoglobin Oxyhemoglobin Sodium Potassium Chloride Carbon Dioxide BUN Creatinine Glucose POC Glucose 135 H 149 H 140 H Lactic Acid Calcium Phosphorus Magnesium Direct Bilirubin AST ALT Alkaline Phosphatase Lactate Dehydrogenase Troponin T C-Reactive Protein Total Protein Albumin Prealbumin Triglycerides Cholesterol LDL Cholesterol Direct HDL Cholesterol Urine pH Urine WBC (Auto) Urine Creatinine Urine Total Protein Fluid Total Protein Vancomycin Trough Rheumatoid Factor Complement C4 Miscellaneous Test Crossmatch 12/22/16 12/22/16 12/22/16 06:10 11:17 17:31 WBC RBC Hgb Hct MCV MCH MCHC RDW Plt Count Lymph % (Auto) [place] % (Auto) Lymph # [place] # Baso # Seg Neutrophils % Seg Neuts % (Manual) Lymphocytes % (Manual) Monocytes % (Manual) Eosinophils % (Manual) Basophils % (Manual) Nucleated RBC % Seg Neutrophils # Seg Neutrophils # Man Lymphocytes # (Manual) Monocytes # (Manual) Eosinophils # (Manual) Basophils # (Manual) PT INR Fibrinogen dRVVT Confirm Interp Factor V Activity POC ABG pH POC ABG pCO2 POC ABG pO2 ABG pO2 ABG HCO3 ABG Base Excess ABG Hemoglobin Oxyhemoglobin Sodium Potassium Chloride Carbon Dioxide BUN 76 H Creatinine 1.5 H Glucose 241 H POC Glucose 193 H 148 H Lactic Acid Calcium Phosphorus Magnesium Direct Bilirubin AST ALT Alkaline Phosphatase Lactate Dehydrogenase Troponin T C-Reactive Protein Total Protein Albumin Prealbumin Triglycerides Cholesterol LDL Cholesterol Direct HDL Cholesterol Urine pH Urine WBC (Auto) Urine Creatinine Urine Total Protein Fluid Total Protein Vancomycin Trough Rheumatoid Factor Complement C4 Miscellaneous Test Crossmatch 12/22/16 12/23/16 12/23/16 23:58 05:00 05:26 WBC RBC Hgb Hct MCV MCH MCHC RDW Plt Count Lymph % (Auto) [place] % (Auto) Lymph # [place] # Baso # Seg Neutrophils % Seg Neuts % (Manual) Lymphocytes % (Manual) Monocytes % (Manual) Eosinophils % (Manual) Basophils % (Manual) Nucleated RBC % Seg Neutrophils # Seg Neutrophils # Man Lymphocytes # (Manual) Monocytes # (Manual) Eosinophils # (Manual) Basophils # (Manual) PT INR Fibrinogen dRVVT Confirm Interp Factor V Activity POC ABG pH POC ABG pCO2 POC ABG pO2 ABG pO2 ABG HCO3 ABG Base Excess ABG Hemoglobin Oxyhemoglobin Sodium Potassium Chloride Carbon Dioxide BUN 49 H Creatinine Glucose 143 H POC Glucose 165 H 154 H Lactic Acid Calcium 8.2 L Phosphorus Magnesium 1.60 L Direct Bilirubin AST ALT Alkaline Phosphatase Lactate Dehydrogenase Troponin T C-Reactive Protein Total Protein Albumin Prealbumin Triglycerides Cholesterol LDL Cholesterol Direct HDL Cholesterol Urine pH Urine WBC (Auto) Urine Creatinine Urine Total Protein Fluid Total Protein Vancomycin Trough Rheumatoid Factor Complement C4 Miscellaneous Test Crossmatch 12/23/16 12/23/16 12/24/16 12:35 17:01 00:01 WBC RBC Hgb Hct MCV MCH MCHC RDW Plt Count Lymph % (Auto) [place] % (Auto) Lymph # [place] # Baso # Seg Neutrophils % Seg Neuts % (Manual) Lymphocytes % (Manual) Monocytes % (Manual) Eosinophils % (Manual) Basophils % (Manual) Nucleated RBC % Seg Neutrophils # Seg Neutrophils # Man Lymphocytes # (Manual) Monocytes # (Manual) Eosinophils # (Manual) Basophils # (Manual) PT INR Fibrinogen dRVVT Confirm Interp Factor V Activity POC ABG pH POC ABG pCO2 POC ABG pO2 ABG pO2 ABG HCO3 ABG Base Excess ABG Hemoglobin Oxyhemoglobin Sodium Potassium Chloride Carbon Dioxide BUN Creatinine Glucose POC Glucose 164 H 149 H 135 H Lactic Acid Calcium Phosphorus Magnesium Direct Bilirubin AST ALT Alkaline Phosphatase Lactate Dehydrogenase Troponin T C-Reactive Protein Total Protein Albumin Prealbumin Triglycerides Cholesterol LDL Cholesterol Direct HDL Cholesterol Urine pH Urine WBC (Auto) Urine Creatinine Urine Total Protein Fluid Total Protein Vancomycin Trough Rheumatoid Factor Complement C4 Miscellaneous Test Crossmatch 12/24/16 12/24/16 12/24/16 05:41 07:01 11:38 WBC RBC Hgb Hct MCV MCH MCHC RDW Plt Count Lymph % (Auto) [place] % (Auto) Lymph # [place] # Baso # Seg Neutrophils % Seg Neuts % (Manual) Lymphocytes % (Manual) Monocytes % (Manual) Eosinophils % (Manual) Basophils % (Manual) Nucleated RBC % Seg Neutrophils # Seg Neutrophils # Man Lymphocytes # (Manual) Monocytes # (Manual) Eosinophils # (Manual) Basophils # (Manual) PT INR Fibrinogen dRVVT Confirm Interp Factor V Activity POC ABG pH POC ABG pCO2 POC ABG pO2 ABG pO2 ABG HCO3 ABG Base Excess ABG Hemoglobin Oxyhemoglobin Sodium Potassium Chloride Carbon Dioxide BUN 72 H Creatinine 1.3 H Glucose 130 H POC Glucose 132 H 156 H Lactic Acid Calcium 8.2 L Phosphorus Magnesium Direct Bilirubin AST ALT Alkaline Phosphatase Lactate Dehydrogenase Troponin T C-Reactive Protein Total Protein Albumin Prealbumin Triglycerides Cholesterol LDL Cholesterol Direct HDL Cholesterol Urine pH Urine WBC (Auto) Urine Creatinine Urine Total Protein Fluid Total Protein Vancomycin Trough Rheumatoid Factor Complement C4 Miscellaneous Test Crossmatch 12/24/16 12/25/16 12/25/16 17:53 00:23 05:45 WBC RBC Hgb Hct MCV MCH MCHC RDW Plt Count Lymph % (Auto) [place] % (Auto) Lymph # [place] # Baso # Seg Neutrophils % Seg Neuts % (Manual) Lymphocytes % (Manual) Monocytes % (Manual) Eosinophils % (Manual) Basophils % (Manual) Nucleated RBC % Seg Neutrophils # Seg Neutrophils # Man Lymphocytes # (Manual) Monocytes # (Manual) Eosinophils # (Manual) Basophils # (Manual) PT INR Fibrinogen dRVVT Confirm Interp Factor V Activity POC ABG pH POC ABG pCO2 POC ABG pO2 ABG pO2 ABG HCO3 ABG Base Excess ABG Hemoglobin Oxyhemoglobin Sodium 146 H Potassium Chloride Carbon Dioxide BUN 51 H Creatinine Glucose 109 H POC Glucose 169 H 117 H Lactic Acid Calcium Phosphorus Magnesium Direct Bilirubin AST ALT Alkaline Phosphatase Lactate Dehydrogenase Troponin T C-Reactive Protein Total Protein Albumin Prealbumin Triglycerides Cholesterol LDL Cholesterol Direct HDL Cholesterol Urine pH Urine WBC (Auto) Urine Creatinine Urine Total Protein Fluid Total Protein Vancomycin Trough Rheumatoid Factor Complement C4 Miscellaneous Test Crossmatch 12/25/16 12/25/16 12/25/16 06:43 11:29 17:14 WBC RBC Hgb Hct MCV MCH MCHC RDW Plt Count Lymph % (Auto) [place] % (Auto) Lymph # [place] # Baso # Seg Neutrophils % Seg Neuts % (Manual) Lymphocytes % (Manual) Monocytes % (Manual) Eosinophils % (Manual) Basophils % (Manual) Nucleated RBC % Seg Neutrophils # Seg Neutrophils # Man Lymphocytes # (Manual) Monocytes # (Manual) Eosinophils # (Manual) Basophils # (Manual) PT INR Fibrinogen dRVVT Confirm Interp Factor V Activity POC ABG pH POC ABG pCO2 POC ABG pO2 ABG pO2 ABG HCO3 ABG Base Excess ABG Hemoglobin Oxyhemoglobin Sodium Potassium Chloride Carbon Dioxide BUN Creatinine Glucose POC Glucose 117 H 128 H 120 H Lactic Acid Calcium Phosphorus Magnesium Direct Bilirubin AST ALT Alkaline Phosphatase Lactate Dehydrogenase Troponin T C-Reactive Protein Total Protein Albumin Prealbumin Triglycerides Cholesterol LDL Cholesterol Direct HDL Cholesterol Urine pH Urine WBC (Auto) Urine Creatinine Urine Total Protein Fluid Total Protein Vancomycin Trough Rheumatoid Factor Complement C4 Miscellaneous Test Crossmatch 12/25/16 12/26/16 12/26/16 23:54 05:40 05:50 WBC 16.2 H RBC 2.32 L Hgb 6.2 L Hct 20.1 L MCV MCH 27 L MCHC RDW 18.6 H Plt Count Lymph % (Auto) [place] % (Auto) Lymph # [place] # Baso # Seg Neutrophils % Seg Neuts % (Manual) Lymphocytes % (Manual) Monocytes % (Manual) Eosinophils % (Manual) Basophils % (Manual) Nucleated RBC % Seg Neutrophils # Seg Neutrophils # Man Lymphocytes # (Manual) Monocytes # (Manual) Eosinophils # (Manual) Basophils # (Manual) PT INR Fibrinogen dRVVT Confirm Interp Factor V Activity POC ABG pH POC ABG pCO2 POC ABG pO2 ABG pO2 ABG HCO3 ABG Base Excess ABG Hemoglobin Oxyhemoglobin Sodium Potassium Chloride Carbon Dioxide BUN Creatinine Glucose POC Glucose 126 H 132 H Lactic Acid Calcium Phosphorus Magnesium Direct Bilirubin AST ALT Alkaline Phosphatase Lactate Dehydrogenase Troponin T C-Reactive Protein Total Protein Albumin Prealbumin Triglycerides Cholesterol LDL Cholesterol Direct HDL Cholesterol Urine pH Urine WBC (Auto) Urine Creatinine Urine Total Protein Fluid Total Protein Vancomycin Trough Rheumatoid Factor Complement C4 Miscellaneous Test Crossmatch 12/26/16 12/26/16 12/26/16 05:50 12:17 12:33 WBC RBC Hgb Hct MCV MCH MCHC RDW Plt Count Lymph % (Auto) [place] % (Auto) Lymph # [place] # Baso # Seg Neutrophils % Seg Neuts % (Manual) Lymphocytes % (Manual) Monocytes % (Manual) Eosinophils % (Manual) Basophils % (Manual) Nucleated RBC % Seg Neutrophils # Seg Neutrophils # Man Lymphocytes # (Manual) Monocytes # (Manual) Eosinophils # (Manual) Basophils # (Manual) PT INR Fibrinogen dRVVT Confirm Interp Factor V Activity POC ABG pH POC ABG pCO2 POC ABG pO2 ABG pO2 ABG HCO3 ABG Base Excess ABG Hemoglobin Oxyhemoglobin Sodium Potassium Chloride Carbon Dioxide BUN 73 H Creatinine 1.3 H Glucose 113 H POC Glucose 117 H Lactic Acid Calcium Phosphorus Magnesium Direct Bilirubin AST ALT Alkaline Phosphatase Lactate Dehydrogenase Troponin T C-Reactive Protein Total Protein Albumin Prealbumin Triglycerides Cholesterol LDL Cholesterol Direct HDL Cholesterol Urine pH Urine WBC (Auto) Urine Creatinine Urine Total Protein Fluid Total Protein Vancomycin Trough Rheumatoid Factor Complement C4 Miscellaneous Test Crossmatch See Detail 12/26/16 12/26/16 12/27/16 20:00 23:21 05:00 WBC RBC Hgb 8.4 L Hct 26.3 L D MCV MCH MCHC RDW Plt Count Lymph % (Auto) [place] % (Auto) Lymph # [place] # Baso # Seg Neutrophils % Seg Neuts % (Manual) Lymphocytes % (Manual) Monocytes % (Manual) Eosinophils % (Manual) Basophils % (Manual) Nucleated RBC % Seg Neutrophils # Seg Neutrophils # Man Lymphocytes # (Manual) Monocytes # (Manual) Eosinophils # (Manual) Basophils # (Manual) PT INR Fibrinogen dRVVT Confirm Interp Factor V Activity POC ABG pH POC ABG pCO2 POC ABG pO2 ABG pO2 ABG HCO3 ABG Base Excess ABG Hemoglobin Oxyhemoglobin Sodium Potassium Chloride Carbon Dioxide BUN 85 H Creatinine 1.6 H Glucose 118 H POC Glucose 124 H Lactic Acid Calcium Phosphorus 4.80 H Magnesium Direct Bilirubin AST ALT Alkaline Phosphatase Lactate Dehydrogenase Troponin T C-Reactive Protein Total Protein Albumin Prealbumin Triglycerides Cholesterol LDL Cholesterol Direct HDL Cholesterol Urine pH Urine WBC (Auto) Urine Creatinine Urine Total Protein Fluid Total Protein Vancomycin Trough Rheumatoid Factor Complement C4 Miscellaneous Test Crossmatch 12/27/16 12/27/16 12/27/16 05:00 05:35 12:24 WBC RBC Hgb 7.6 L Hct 22.8 L MCV MCH MCHC RDW Plt Count Lymph % (Auto) [place] % (Auto) Lymph # [place] # Baso # Seg Neutrophils % Seg Neuts % (Manual) Lymphocytes % (Manual) Monocytes % (Manual) Eosinophils % (Manual) Basophils % (Manual) Nucleated RBC % Seg Neutrophils # Seg Neutrophils # Man Lymphocytes # (Manual) Monocytes # (Manual) Eosinophils # (Manual) Basophils # (Manual) PT INR Fibrinogen dRVVT Confirm Interp Factor V Activity POC ABG pH POC ABG pCO2 POC ABG pO2 ABG pO2 ABG HCO3 ABG Base Excess ABG Hemoglobin Oxyhemoglobin Sodium Potassium Chloride Carbon Dioxide BUN Creatinine Glucose POC Glucose 115 H 131 H Lactic Acid Calcium Phosphorus Magnesium Direct Bilirubin AST ALT Alkaline Phosphatase Lactate Dehydrogenase Troponin T C-Reactive Protein Total Protein Albumin Prealbumin Triglycerides Cholesterol LDL Cholesterol Direct HDL Cholesterol Urine pH Urine WBC (Auto) Urine Creatinine Urine Total Protein Fluid Total Protein Vancomycin Trough Rheumatoid Factor Complement C4 Miscellaneous Test Crossmatch 12/27/16 12/28/16 12/28/16 17:16 00:18 04:00 WBC RBC Hgb Hct MCV MCH MCHC RDW Plt Count Lymph % (Auto) [place] % (Auto) Lymph # [place] # Baso # Seg Neutrophils % Seg Neuts % (Manual) Lymphocytes % (Manual) Monocytes % (Manual) Eosinophils % (Manual) Basophils % (Manual) Nucleated RBC % Seg Neutrophils # Seg Neutrophils # Man Lymphocytes # (Manual) Monocytes # (Manual) Eosinophils # (Manual) Basophils # (Manual) PT INR Fibrinogen dRVVT Confirm Interp Factor V Activity POC ABG pH POC ABG pCO2 POC ABG pO2 ABG pO2 ABG HCO3 ABG Base Excess ABG Hemoglobin Oxyhemoglobin Sodium Potassium 3.5 L Chloride Carbon Dioxide BUN 57 H Creatinine Glucose 118 H POC Glucose 136 H 120 H Lactic Acid Calcium 8.3 L Phosphorus Magnesium Direct Bilirubin AST ALT Alkaline Phosphatase Lactate Dehydrogenase Troponin T C-Reactive Protein Total Protein Albumin Prealbumin Triglycerides Cholesterol LDL Cholesterol Direct HDL Cholesterol Urine pH Urine WBC (Auto) Urine Creatinine Urine Total Protein Fluid Total Protein Vancomycin Trough Rheumatoid Factor Complement C4 Miscellaneous Test Crossmatch 12/28/16 12/28/16 12/28/16 04:00 05:11 08:30 WBC 17.0 H RBC 2.58 L Hgb 7.1 L Hct 22.0 L MCV MCH MCHC RDW 17.6 H Plt Count Lymph % (Auto) 12.2 L [place] % (Auto) Lymph # [place] # 1.1 H Baso # Seg Neutrophils % 80.5 H Seg Neuts % (Manual) Lymphocytes % (Manual) Monocytes % (Manual) Eosinophils % (Manual) Basophils % (Manual) Nucleated RBC % Seg Neutrophils # 13.7 H Seg Neutrophils # Man Lymphocytes # (Manual) Monocytes # (Manual) Eosinophils # (Manual) Basophils # (Manual) PT 16.1 H INR 1.23 H Fibrinogen dRVVT Confirm Interp Factor V Activity POC ABG pH POC ABG pCO2 POC ABG pO2 ABG pO2 ABG HCO3 ABG Base Excess ABG Hemoglobin Oxyhemoglobin Sodium Potassium Chloride Carbon Dioxide BUN Creatinine Glucose POC Glucose 122 H Lactic Acid Calcium Phosphorus Magnesium Direct Bilirubin AST ALT Alkaline Phosphatase Lactate Dehydrogenase Troponin T C-Reactive Protein Total Protein Albumin Prealbumin Triglycerides Cholesterol LDL Cholesterol Direct HDL Cholesterol Urine pH Urine WBC (Auto) Urine Creatinine Urine Total Protein Fluid Total Protein Vancomycin Trough Rheumatoid Factor Complement C4 Miscellaneous Test Crossmatch 12/28/16 12/28/16 12/28/16 12:27 16:32 23:46 WBC RBC Hgb Hct MCV MCH MCHC RDW Plt Count Lymph % (Auto) [place] % (Auto) Lymph # [place] # Baso # Seg Neutrophils % Seg Neuts % (Manual) Lymphocytes % (Manual) Monocytes % (Manual) Eosinophils % (Manual) Basophils % (Manual) Nucleated RBC % Seg Neutrophils # Seg Neutrophils # Man Lymphocytes # (Manual) Monocytes # (Manual) Eosinophils # (Manual) Basophils # (Manual) PT INR Fibrinogen dRVVT Confirm Interp Factor V Activity POC ABG pH POC ABG pCO2 POC ABG pO2 ABG pO2 ABG HCO3 ABG Base Excess ABG Hemoglobin Oxyhemoglobin Sodium Potassium Chloride Carbon Dioxide BUN Creatinine Glucose POC Glucose 127 H 117 H 108 H Lactic Acid Calcium Phosphorus Magnesium Direct Bilirubin AST ALT Alkaline Phosphatase Lactate Dehydrogenase Troponin T C-Reactive Protein Total Protein Albumin Prealbumin Triglycerides Cholesterol LDL Cholesterol Direct HDL Cholesterol Urine pH Urine WBC (Auto) Urine Creatinine Urine Total Protein Fluid Total Protein Vancomycin Trough Rheumatoid Factor Complement C4 Miscellaneous Test Crossmatch 12/29/16 12/29/16 12/29/16 05:15 05:15 05:32 WBC RBC Hgb Hct MCV MCH MCHC RDW Plt Count Lymph % (Auto) [place] % (Auto) Lymph # [place] # Baso # Seg Neutrophils % Seg Neuts % (Manual) Lymphocytes % (Manual) Monocytes % (Manual) Eosinophils % (Manual) Basophils % (Manual) Nucleated RBC % Seg Neutrophils # Seg Neutrophils # Man Lymphocytes # (Manual) Monocytes # (Manual) Eosinophils # (Manual) Basophils # (Manual) PT INR Fibrinogen dRVVT Confirm Interp Factor V Activity POC ABG pH POC ABG pCO2 POC ABG pO2 ABG pO2 ABG HCO3 ABG Base Excess ABG Hemoglobin Oxyhemoglobin Sodium Potassium Chloride Carbon Dioxide BUN 74 H Creatinine 1.6 H Glucose 111 H POC Glucose 123 H Lactic Acid Calcium Phosphorus Magnesium Direct Bilirubin AST ALT Alkaline Phosphatase Lactate Dehydrogenase Troponin T C-Reactive Protein Total Protein Albumin Prealbumin 0.110 L Triglycerides Cholesterol LDL Cholesterol Direct HDL Cholesterol Urine pH Urine WBC (Auto) Urine Creatinine Urine Total Protein Fluid Total Protein Vancomycin Trough Rheumatoid Factor Complement C4 Miscellaneous Test Crossmatch 12/29/16 12/29/16 12/29/16 11:43 13:45 14:00 WBC 13.8 H RBC 2.26 L Hgb 6.3 L Hct 20.4 L MCV MCH MCHC RDW 18.3 H Plt Count Lymph % (Auto) [place] % (Auto) Lymph # [place] # 0.9 H Baso # Seg Neutrophils % 78.6 H Seg Neuts % (Manual) Lymphocytes % (Manual) Monocytes % (Manual) Eosinophils % (Manual) Basophils % (Manual) Nucleated RBC % Seg Neutrophils # 10.8 H Seg Neutrophils # Man Lymphocytes # (Manual) Monocytes # (Manual) Eosinophils # (Manual) Basophils # (Manual) PT INR Fibrinogen dRVVT Confirm Interp Factor V Activity POC ABG pH POC ABG pCO2 POC ABG pO2 ABG pO2 ABG HCO3 ABG Base Excess ABG Hemoglobin Oxyhemoglobin Sodium Potassium Chloride Carbon Dioxide BUN Creatinine Glucose POC Glucose 133 H Lactic Acid Calcium Phosphorus Magnesium Direct Bilirubin AST ALT Alkaline Phosphatase Lactate Dehydrogenase Troponin T C-Reactive Protein Total Protein Albumin Prealbumin Triglycerides Cholesterol LDL Cholesterol Direct HDL Cholesterol Urine pH Urine WBC (Auto) Urine Creatinine Urine Total Protein Fluid Total Protein Vancomycin Trough Rheumatoid Factor Complement C4 Miscellaneous Test Crossmatch See Detail 12/29/16 12/29/16 12/29/16 17:03 23:15 23:22 WBC RBC Hgb 7.3 L Hct 22.3 L MCV MCH MCHC RDW Plt Count Lymph % (Auto) [place] % (Auto) Lymph # [place] # Baso # Seg Neutrophils % Seg Neuts % (Manual) Lymphocytes % (Manual) Monocytes % (Manual) Eosinophils % (Manual) Basophils % (Manual) Nucleated RBC % Seg Neutrophils # Seg Neutrophils # Man Lymphocytes # (Manual) Monocytes # (Manual) Eosinophils # (Manual) Basophils # (Manual) PT INR Fibrinogen dRVVT Confirm Interp Factor V Activity POC ABG pH POC ABG pCO2 POC ABG pO2 ABG pO2 ABG HCO3 ABG Base Excess ABG Hemoglobin Oxyhemoglobin Sodium Potassium Chloride Carbon Dioxide BUN Creatinine Glucose POC Glucose 139 H 120 H Lactic Acid Calcium Phosphorus Magnesium Direct Bilirubin AST ALT Alkaline Phosphatase Lactate Dehydrogenase Troponin T C-Reactive Protein Total Protein Albumin Prealbumin Triglycerides Cholesterol LDL Cholesterol Direct HDL Cholesterol Urine pH Urine WBC (Auto) Urine Creatinine Urine Total Protein Fluid Total Protein Vancomycin Trough Rheumatoid Factor Complement C4 Miscellaneous Test Crossmatch 12/30/16 12/30/16 12/30/16 04:20 04:20 05:43 WBC 15.6 H RBC 2.81 L Hgb 8.0 L Hct 24.0 L MCV MCH MCHC RDW 16.9 H Plt Count Lymph % (Auto) [place] % (Auto) Lymph # [place] # 1.0 H Baso # Seg Neutrophils % 76.2 H Seg Neuts % (Manual) Lymphocytes % (Manual) Monocytes % (Manual) Eosinophils % (Manual) Basophils % (Manual) Nucleated RBC % Seg Neutrophils # 11.9 H Seg Neutrophils # Man Lymphocytes # (Manual) Monocytes # (Manual) Eosinophils # (Manual) Basophils # (Manual) PT INR Fibrinogen dRVVT Confirm Interp Factor V Activity POC ABG pH POC ABG pCO2 POC ABG pO2 ABG pO2 ABG HCO3 ABG Base Excess ABG Hemoglobin Oxyhemoglobin Sodium Potassium Chloride Carbon Dioxide BUN 87 H Creatinine 1.8 H Glucose 119 H POC Glucose 115 H Lactic Acid Calcium Phosphorus Magnesium Direct Bilirubin AST ALT Alkaline Phosphatase Lactate Dehydrogenase Troponin T C-Reactive Protein Total Protein Albumin Prealbumin Triglycerides Cholesterol LDL Cholesterol Direct HDL Cholesterol Urine pH Urine WBC (Auto) Urine Creatinine Urine Total Protein Fluid Total Protein Vancomycin Trough Rheumatoid Factor Complement C4 Miscellaneous Test Crossmatch 12/30/16 12/30/16 12/31/16 17:27 23:21 04:00 WBC RBC Hgb Hct MCV MCH MCHC RDW Plt Count Lymph % (Auto) [place] % (Auto) Lymph # [place] # Baso # Seg Neutrophils % Seg Neuts % (Manual) Lymphocytes % (Manual) Monocytes % (Manual) Eosinophils % (Manual) Basophils % (Manual) Nucleated RBC % Seg Neutrophils # Seg Neutrophils # Man Lymphocytes # (Manual) Monocytes # (Manual) Eosinophils # (Manual) Basophils # (Manual) PT INR Fibrinogen dRVVT Confirm Interp Factor V Activity POC ABG pH POC ABG pCO2 POC ABG pO2 ABG pO2 ABG HCO3 ABG Base Excess ABG Hemoglobin Oxyhemoglobin Sodium Potassium Chloride Carbon Dioxide BUN 59 H Creatinine Glucose 298 H POC Glucose 144 H 125 H Lactic Acid Calcium Phosphorus Magnesium Direct Bilirubin AST ALT Alkaline Phosphatase Lactate Dehydrogenase Troponin T C-Reactive Protein Total Protein Albumin Prealbumin Triglycerides Cholesterol LDL Cholesterol Direct HDL Cholesterol Urine pH Urine WBC (Auto) Urine Creatinine Urine Total Protein Fluid Total Protein Vancomycin Trough Rheumatoid Factor Complement C4 Miscellaneous Test Crossmatch 12/31/16 12/31/16 12/31/16 05:11 12:18 18:17 WBC RBC Hgb Hct MCV MCH MCHC RDW Plt Count Lymph % (Auto) [place] % (Auto) Lymph # [place] # Baso # Seg Neutrophils % Seg Neuts % (Manual) Lymphocytes % (Manual) Monocytes % (Manual) Eosinophils % (Manual) Basophils % (Manual) Nucleated RBC % Seg Neutrophils # Seg Neutrophils # Man Lymphocytes # (Manual) Monocytes # (Manual) Eosinophils # (Manual) Basophils # (Manual) PT INR Fibrinogen dRVVT Confirm Interp Factor V Activity POC ABG pH POC ABG pCO2 POC ABG pO2 ABG pO2 ABG HCO3 ABG Base Excess ABG Hemoglobin Oxyhemoglobin Sodium Potassium Chloride Carbon Dioxide BUN Creatinine Glucose POC Glucose 167 H 125 H 133 H Lactic Acid Calcium Phosphorus Magnesium Direct Bilirubin AST ALT Alkaline Phosphatase Lactate Dehydrogenase Troponin T C-Reactive Protein Total Protein Albumin Prealbumin Triglycerides Cholesterol LDL Cholesterol Direct HDL Cholesterol Urine pH Urine WBC (Auto) Urine Creatinine Urine Total Protein Fluid Total Protein Vancomycin Trough Rheumatoid Factor Complement C4 Miscellaneous Test Crossmatch 12/31/16 01/01/17 01/01/17 23:55 05:00 05:12 WBC RBC Hgb Hct MCV MCH MCHC RDW Plt Count Lymph % (Auto) [place] % (Auto) Lymph # [place] # Baso # Seg Neutrophils % Seg Neuts % (Manual) Lymphocytes % (Manual) Monocytes % (Manual) Eosinophils % (Manual) Basophils % (Manual) Nucleated RBC % Seg Neutrophils # Seg Neutrophils # Man Lymphocytes # (Manual) Monocytes # (Manual) Eosinophils # (Manual) Basophils # (Manual) PT INR Fibrinogen dRVVT Confirm Interp Factor V Activity POC ABG pH POC ABG pCO2 POC ABG pO2 ABG pO2 ABG HCO3 ABG Base Excess ABG Hemoglobin Oxyhemoglobin Sodium Potassium Chloride Carbon Dioxide BUN 76 H Creatinine 1.5 H Glucose 109 H POC Glucose 129 H 129 H Lactic Acid Calcium Phosphorus Magnesium Direct Bilirubin AST ALT Alkaline Phosphatase 536 H Lactate Dehydrogenase Troponin T C-Reactive Protein Total Protein Albumin 1.5 L Prealbumin Triglycerides Cholesterol LDL Cholesterol Direct HDL Cholesterol Urine pH Urine WBC (Auto) Urine Creatinine Urine Total Protein Fluid Total Protein Vancomycin Trough Rheumatoid Factor Complement C4 Miscellaneous Test Crossmatch 01/01/17 01/01/17 01/01/17 12:25 17:01 23:32 WBC RBC Hgb Hct MCV MCH MCHC RDW Plt Count Lymph % (Auto) [place] % (Auto) Lymph # [place] # Baso # Seg Neutrophils % Seg Neuts % (Manual) Lymphocytes % (Manual) Monocytes % (Manual) Eosinophils % (Manual) Basophils % (Manual) Nucleated RBC % Seg Neutrophils # Seg Neutrophils # Man Lymphocytes # (Manual) Monocytes # (Manual) Eosinophils # (Manual) Basophils # (Manual) PT INR Fibrinogen dRVVT Confirm Interp Factor V Activity POC ABG pH POC ABG pCO2 POC ABG pO2 ABG pO2 ABG HCO3 ABG Base Excess ABG Hemoglobin Oxyhemoglobin Sodium Potassium Chloride Carbon Dioxide BUN Creatinine Glucose POC Glucose 140 H 142 H 112 H Lactic Acid Calcium Phosphorus Magnesium Direct Bilirubin AST ALT Alkaline Phosphatase Lactate Dehydrogenase Troponin T C-Reactive Protein Total Protein Albumin Prealbumin Triglycerides Cholesterol LDL Cholesterol Direct HDL Cholesterol Urine pH Urine WBC (Auto) Urine Creatinine Urine Total Protein Fluid Total Protein Vancomycin Trough Rheumatoid Factor Complement C4 Miscellaneous Test Crossmatch 01/02/17 01/02/17 01/02/17 04:56 06:00 11:37 WBC RBC Hgb Hct MCV MCH MCHC RDW Plt Count Lymph % (Auto) [place] % (Auto) Lymph # [place] # Baso # Seg Neutrophils % Seg Neuts % (Manual) Lymphocytes % (Manual) Monocytes % (Manual) Eosinophils % (Manual) Basophils % (Manual) Nucleated RBC % Seg Neutrophils # Seg Neutrophils # Man Lymphocytes # (Manual) Monocytes # (Manual) Eosinophils # (Manual) Basophils # (Manual) PT INR Fibrinogen dRVVT Confirm Interp Factor V Activity POC ABG pH POC ABG pCO2 POC ABG pO2 ABG pO2 ABG HCO3 ABG Base Excess ABG Hemoglobin Oxyhemoglobin Sodium Potassium Chloride Carbon Dioxide BUN 88 H Creatinine 1.7 H Glucose 113 H POC Glucose 136 H 200 H Lactic Acid Calcium Phosphorus Magnesium Direct Bilirubin AST ALT Alkaline Phosphatase Lactate Dehydrogenase Troponin T C-Reactive Protein Total Protein Albumin Prealbumin Triglycerides Cholesterol LDL Cholesterol Direct HDL Cholesterol Urine pH Urine WBC (Auto) Urine Creatinine Urine Total Protein Fluid Total Protein Vancomycin Trough Rheumatoid Factor Complement C4 Miscellaneous Test Crossmatch 01/02/17 01/02/17 01/03/17 17:42 22:52 04:54 WBC RBC Hgb Hct MCV MCH MCHC RDW Plt Count Lymph % (Auto) [place] % (Auto) Lymph # [place] # Baso # Seg Neutrophils % Seg Neuts % (Manual) Lymphocytes % (Manual) Monocytes % (Manual) Eosinophils % (Manual) Basophils % (Manual) Nucleated RBC % Seg Neutrophils # Seg Neutrophils # Man Lymphocytes # (Manual) Monocytes # (Manual) Eosinophils # (Manual) Basophils # (Manual) PT INR Fibrinogen dRVVT Confirm Interp Factor V Activity POC ABG pH POC ABG pCO2 POC ABG pO2 ABG pO2 ABG HCO3 ABG Base Excess ABG Hemoglobin Oxyhemoglobin Sodium Potassium Chloride Carbon Dioxide BUN Creatinine Glucose POC Glucose 112 H 133 H 111 H Lactic Acid Calcium Phosphorus Magnesium Direct Bilirubin AST ALT Alkaline Phosphatase Lactate Dehydrogenase Troponin T C-Reactive Protein Total Protein Albumin Prealbumin Triglycerides Cholesterol LDL Cholesterol Direct HDL Cholesterol Urine pH Urine WBC (Auto) Urine Creatinine Urine Total Protein Fluid Total Protein Vancomycin Trough Rheumatoid Factor Complement C4 Miscellaneous Test Crossmatch 01/03/17 01/03/17 01/03/17 05:00 05:00 14:02 WBC 11.2 H RBC 2.56 L Hgb 7.2 L Hct 22.3 L MCV MCH MCHC RDW 17.3 H Plt Count Lymph % (Auto) [place] % (Auto) 10.0 H Lymph # [place] # 1.1 H Baso # Seg Neutrophils % 70.5 H Seg Neuts % (Manual) Lymphocytes % (Manual) Monocytes % (Manual) Eosinophils % (Manual) Basophils % (Manual) Nucleated RBC % Seg Neutrophils # 7.9 H Seg Neutrophils # Man Lymphocytes # (Manual) Monocytes # (Manual) Eosinophils # (Manual) Basophils # (Manual) PT INR Fibrinogen dRVVT Confirm Interp Factor V Activity POC ABG pH POC ABG pCO2 POC ABG pO2 ABG pO2 ABG HCO3 ABG Base Excess ABG Hemoglobin Oxyhemoglobin Sodium Potassium Chloride Carbon Dioxide BUN 60 H Creatinine 1.3 H Glucose 110 H POC Glucose 119 H Lactic Acid Calcium Phosphorus Magnesium Direct Bilirubin AST ALT Alkaline Phosphatase Lactate Dehydrogenase Troponin T C-Reactive Protein Total Protein Albumin Prealbumin Triglycerides Cholesterol LDL Cholesterol Direct HDL Cholesterol Urine pH Urine WBC (Auto) Urine Creatinine Urine Total Protein Fluid Total Protein Vancomycin Trough Rheumatoid Factor Complement C4 Miscellaneous Test Crossmatch 01/03/17 01/03/17 01/04/17 18:13 23:40 05:57 WBC RBC Hgb Hct MCV MCH MCHC RDW Plt Count Lymph % (Auto) [place] % (Auto) Lymph # [place] # Baso # Seg Neutrophils % Seg Neuts % (Manual) Lymphocytes % (Manual) Monocytes % (Manual) Eosinophils % (Manual) Basophils % (Manual) Nucleated RBC % Seg Neutrophils # Seg Neutrophils # Man Lymphocytes # (Manual) Monocytes # (Manual) Eosinophils # (Manual) Basophils # (Manual) PT INR Fibrinogen dRVVT Confirm Interp Factor V Activity POC ABG pH POC ABG pCO2 POC ABG pO2 ABG pO2 ABG HCO3 ABG Base Excess ABG Hemoglobin Oxyhemoglobin Sodium Potassium Chloride Carbon Dioxide BUN Creatinine Glucose POC Glucose 107 H 129 H 111 H Lactic Acid Calcium Phosphorus Magnesium Direct Bilirubin AST ALT Alkaline Phosphatase Lactate Dehydrogenase Troponin T C-Reactive Protein Total Protein Albumin Prealbumin Triglycerides Cholesterol LDL Cholesterol Direct HDL Cholesterol Urine pH Urine WBC (Auto) Urine Creatinine Urine Total Protein Fluid Total Protein Vancomycin Trough Rheumatoid Factor Complement C4 Miscellaneous Test Crossmatch 01/04/17 01/04/17 01/04/17 12:46 15:27 17:11 WBC RBC Hgb Hct MCV MCH MCHC RDW Plt Count Lymph % (Auto) [place] % (Auto) Lymph # [place] # Baso # Seg Neutrophils % Seg Neuts % (Manual) Lymphocytes % (Manual) Monocytes % (Manual) Eosinophils % (Manual) Basophils % (Manual) Nucleated RBC % Seg Neutrophils # Seg Neutrophils # Man Lymphocytes # (Manual) Monocytes # (Manual) Eosinophils # (Manual) Basophils # (Manual) PT INR Fibrinogen dRVVT Confirm Interp Factor V Activity POC ABG pH POC ABG pCO2 POC ABG pO2 ABG pO2 ABG HCO3 ABG Base Excess ABG Hemoglobin Oxyhemoglobin Sodium Potassium Chloride Carbon Dioxide BUN 43 H Creatinine Glucose 124 H POC Glucose 159 H 125 H Lactic Acid Calcium 8.0 L Phosphorus 2.10 L Magnesium Direct Bilirubin AST ALT Alkaline Phosphatase Lactate Dehydrogenase Troponin T C-Reactive Protein Total Protein Albumin Prealbumin Triglycerides Cholesterol LDL Cholesterol Direct HDL Cholesterol Urine pH Urine WBC (Auto) Urine Creatinine Urine Total Protein Fluid Total Protein Vancomycin Trough Rheumatoid Factor Complement C4 Miscellaneous Test Crossmatch 01/04/17 01/05/17 01/05/17 23:31 04:00 05:46 WBC RBC Hgb Hct MCV MCH MCHC RDW Plt Count Lymph % (Auto) [place] % (Auto) Lymph # [place] # Baso # Seg Neutrophils % Seg Neuts % (Manual) Lymphocytes % (Manual) Monocytes % (Manual) Eosinophils % (Manual) Basophils % (Manual) Nucleated RBC % Seg Neutrophils # Seg Neutrophils # Man Lymphocytes # (Manual) Monocytes # (Manual) Eosinophils # (Manual) Basophils # (Manual) PT INR Fibrinogen dRVVT Confirm Interp Factor V Activity POC ABG pH POC ABG pCO2 POC ABG pO2 ABG pO2 ABG HCO3 ABG Base Excess ABG Hemoglobin Oxyhemoglobin Sodium Potassium Chloride Carbon Dioxide BUN 52 H Creatinine 1.3 H Glucose 113 H POC Glucose 123 H 118 H Lactic Acid Calcium Phosphorus 2.40 L Magnesium Direct Bilirubin AST ALT Alkaline Phosphatase Lactate Dehydrogenase Troponin T C-Reactive Protein Total Protein Albumin Prealbumin Triglycerides Cholesterol LDL Cholesterol Direct HDL Cholesterol Urine pH Urine WBC (Auto) Urine Creatinine Urine Total Protein Fluid Total Protein Vancomycin Trough Rheumatoid Factor Complement C4 Miscellaneous Test Crossmatch 01/05/17 01/05/17 01/05/17 11:41 17:48 23:27 WBC RBC Hgb Hct MCV MCH MCHC RDW Plt Count Lymph % (Auto) [place] % (Auto) Lymph # [place] # Baso # Seg Neutrophils % Seg Neuts % (Manual) Lymphocytes % (Manual) Monocytes % (Manual) Eosinophils % (Manual) Basophils % (Manual) Nucleated RBC % Seg Neutrophils # Seg Neutrophils # Man Lymphocytes # (Manual) Monocytes # (Manual) Eosinophils # (Manual) Basophils # (Manual) PT INR Fibrinogen dRVVT Confirm Interp Factor V Activity POC ABG pH POC ABG pCO2 POC ABG pO2 ABG pO2 ABG HCO3 ABG Base Excess ABG Hemoglobin Oxyhemoglobin Sodium Potassium Chloride Carbon Dioxide BUN Creatinine Glucose POC Glucose 163 H 142 H 155 H Lactic Acid Calcium Phosphorus Magnesium Direct Bilirubin AST ALT Alkaline Phosphatase Lactate Dehydrogenase Troponin T C-Reactive Protein Total Protein Albumin Prealbumin Triglycerides Cholesterol LDL Cholesterol Direct HDL Cholesterol Urine pH Urine WBC (Auto) Urine Creatinine Urine Total Protein Fluid Total Protein Vancomycin Trough Rheumatoid Factor Complement C4 Miscellaneous Test Crossmatch 01/06/17 01/06/17 01/06/17 05:20 07:35 11:18 WBC RBC Hgb Hct MCV MCH MCHC RDW Plt Count Lymph % (Auto) [place] % (Auto) Lymph # [place] # Baso # Seg Neutrophils % Seg Neuts % (Manual) Lymphocytes % (Manual) Monocytes % (Manual) Eosinophils % (Manual) Basophils % (Manual) Nucleated RBC % Seg Neutrophils # Seg Neutrophils # Man Lymphocytes # (Manual) Monocytes # (Manual) Eosinophils # (Manual) Basophils # (Manual) PT INR Fibrinogen dRVVT Confirm Interp Factor V Activity POC ABG pH POC ABG pCO2 POC ABG pO2 ABG pO2 ABG HCO3 ABG Base Excess ABG Hemoglobin Oxyhemoglobin Sodium Potassium Chloride Carbon Dioxide BUN 74 H Creatinine 1.6 H Glucose 135 H POC Glucose 108 H 149 H Lactic Acid Calcium Phosphorus Magnesium Direct Bilirubin AST ALT Alkaline Phosphatase Lactate Dehydrogenase Troponin T C-Reactive Protein Total Protein Albumin Prealbumin Triglycerides Cholesterol LDL Cholesterol Direct HDL Cholesterol Urine pH Urine WBC (Auto) Urine Creatinine Urine Total Protein Fluid Total Protein Vancomycin Trough Rheumatoid Factor Complement C4 Miscellaneous Test Crossmatch 01/06/17 01/07/17 01/07/17 17:17 00:23 05:31 WBC RBC Hgb Hct MCV MCH MCHC RDW Plt Count Lymph % (Auto) [place] % (Auto) Lymph # [place] # Baso # Seg Neutrophils % Seg Neuts % (Manual) Lymphocytes % (Manual) Monocytes % (Manual) Eosinophils % (Manual) Basophils % (Manual) Nucleated RBC % Seg Neutrophils # Seg Neutrophils # Man Lymphocytes # (Manual) Monocytes # (Manual) Eosinophils # (Manual) Basophils # (Manual) PT INR Fibrinogen dRVVT Confirm Interp Factor V Activity POC ABG pH POC ABG pCO2 POC ABG pO2 ABG pO2 ABG HCO3 ABG Base Excess ABG Hemoglobin Oxyhemoglobin Sodium Potassium Chloride Carbon Dioxide BUN Creatinine Glucose POC Glucose 146 H 165 H 153 H Lactic Acid Calcium Phosphorus Magnesium Direct Bilirubin AST ALT Alkaline Phosphatase Lactate Dehydrogenase Troponin T C-Reactive Protein Total Protein Albumin Prealbumin Triglycerides Cholesterol LDL Cholesterol Direct HDL Cholesterol Urine pH Urine WBC (Auto) Urine Creatinine Urine Total Protein Fluid Total Protein Vancomycin Trough Rheumatoid Factor Complement C4 Miscellaneous Test Crossmatch 01/07/17 01/07/17 01/07/17 06:00 11:39 17:11 WBC RBC Hgb Hct MCV MCH MCHC RDW Plt Count Lymph % (Auto) [place] % (Auto) Lymph # [place] # Baso # Seg Neutrophils % Seg Neuts % (Manual) Lymphocytes % (Manual) Monocytes % (Manual) Eosinophils % (Manual) Basophils % (Manual) Nucleated RBC % Seg Neutrophils # Seg Neutrophils # Man Lymphocytes # (Manual) Monocytes # (Manual) Eosinophils # (Manual) Basophils # (Manual) PT INR Fibrinogen dRVVT Confirm Interp Factor V Activity POC ABG pH POC ABG pCO2 POC ABG pO2 ABG pO2 ABG HCO3 ABG Base Excess ABG Hemoglobin Oxyhemoglobin Sodium Potassium Chloride Carbon Dioxide BUN 42 H Creatinine Glucose 175 H POC Glucose 163 H 163 H Lactic Acid Calcium Phosphorus 2.40 L D Magnesium Direct Bilirubin AST ALT Alkaline Phosphatase Lactate Dehydrogenase Troponin T C-Reactive Protein Total Protein Albumin Prealbumin Triglycerides Cholesterol LDL Cholesterol Direct HDL Cholesterol Urine pH Urine WBC (Auto) Urine Creatinine Urine Total Protein Fluid Total Protein Vancomycin Trough Rheumatoid Factor Complement C4 Miscellaneous Test Crossmatch 01/07/17 01/08/17 01/08/17 23:40 05:00 05:00 WBC 27.4 H RBC 2.27 L Hgb 6.1 L Hct 20.4 L MCV MCH 27 L MCHC RDW 17.8 H Plt Count Lymph % (Auto) [place] % (Auto) Lymph # [place] # Baso # Seg Neutrophils % Seg Neuts % (Manual) Lymphocytes % (Manual) Monocytes % (Manual) Eosinophils % (Manual) Basophils % (Manual) Nucleated RBC % Seg Neutrophils # Seg Neutrophils # Man Lymphocytes # (Manual) Monocytes # (Manual) Eosinophils # (Manual) Basophils # (Manual) PT INR Fibrinogen dRVVT Confirm Interp Factor V Activity POC ABG pH POC ABG pCO2 POC ABG pO2 ABG pO2 ABG HCO3 ABG Base Excess ABG Hemoglobin Oxyhemoglobin Sodium Potassium Chloride Carbon Dioxide 16 L D BUN 62 H Creatinine 1.6 H D Glucose 103 H POC Glucose 135 H Lactic Acid Calcium Phosphorus Magnesium Direct Bilirubin AST ALT Alkaline Phosphatase Lactate Dehydrogenase Troponin T C-Reactive Protein Total Protein Albumin Prealbumin Triglycerides Cholesterol LDL Cholesterol Direct HDL Cholesterol Urine pH Urine WBC (Auto) Urine Creatinine Urine Total Protein Fluid Total Protein Vancomycin Trough Rheumatoid Factor Complement C4 Miscellaneous Test Crossmatch 01/08/17 01/08/17 01/08/17 05:25 10:37 10:37 WBC RBC Hgb Hct MCV MCH MCHC RDW Plt Count Lymph % (Auto) [place] % (Auto) Lymph # [place] # Baso # Seg Neutrophils % Seg Neuts % (Manual) Lymphocytes % (Manual) Monocytes % (Manual) Eosinophils % (Manual) Basophils % (Manual) Nucleated RBC % Seg Neutrophils # Seg Neutrophils # Man Lymphocytes # (Manual) Monocytes # (Manual) Eosinophils # (Manual) Basophils # (Manual) PT INR Fibrinogen dRVVT Confirm Interp Factor V Activity POC ABG pH POC ABG pCO2 POC ABG pO2 ABG pO2 ABG HCO3 ABG Base Excess ABG Hemoglobin Oxyhemoglobin Sodium Potassium Chloride Carbon Dioxide BUN Creatinine Glucose POC Glucose 106 H Lactic Acid Calcium Phosphorus Magnesium Direct Bilirubin AST ALT Alkaline Phosphatase Lactate Dehydrogenase Troponin T C-Reactive Protein 24.40 H Total Protein Albumin Prealbumin Triglycerides Cholesterol LDL Cholesterol Direct HDL Cholesterol Urine pH Urine WBC (Auto) Urine Creatinine Urine Total Protein Fluid Total Protein Vancomycin Trough Rheumatoid Factor Complement C4 Miscellaneous Test Crossmatch See Detail 01/08/17 01/08/17 01/08/17 10:37 11:33 15:15 WBC RBC Hgb Hct MCV MCH MCHC RDW Plt Count Lymph % (Auto) Creek % (Auto) Lymph # Creek # Baso # Seg Neutrophils % Seg Neuts % (Manual) Lymphocytes % (Manual) Monocytes % (Manual) Eosinophils % (Manual) Basophils % (Manual) Nucleated RBC % Seg Neutrophils # Seg Neutrophils # Man Lymphocytes # (Manual) Monocytes # (Manual) Eosinophils # (Manual) Basophils # (Manual) PT INR Fibrinogen dRVVT Confirm Interp Factor V Activity POC ABG pH POC ABG pCO2 POC ABG pO2 ABG pO2 ABG HCO3 ABG Base Excess ABG Hemoglobin Oxyhemoglobin Sodium Potassium Chloride Carbon Dioxide BUN Creatinine Glucose POC Glucose 157 H Lactic Acid 9.70 H* 9.10 H* Calcium Phosphorus Magnesium Direct Bilirubin AST ALT Alkaline Phosphatase Lactate Dehydrogenase Troponin T C-Reactive Protein Total Protein Albumin Prealbumin Triglycerides Cholesterol LDL Cholesterol Direct HDL Cholesterol Urine pH Urine WBC (Auto) Urine Creatinine Urine Total Protein Fluid Total Protein Vancomycin Trough Rheumatoid Factor Complement C4 Miscellaneous Test Crossmatch 01/08/17 01/08/17 01/09/17 17:19 23:12 04:40 WBC RBC Hgb Hct MCV MCH MCHC RDW Plt Count Lymph % (Auto) Creek % (Auto) Lymph # Creek # Baso # Seg Neutrophils % Seg Neuts % (Manual) Lymphocytes % (Manual) Monocytes % (Manual) Eosinophils % (Manual) Basophils % (Manual) Nucleated RBC % Seg Neutrophils # Seg Neutrophils # Man Lymphocytes # (Manual) Monocytes # (Manual) Eosinophils # (Manual) Basophils # (Manual) PT INR Fibrinogen dRVVT Confirm Interp Factor V Activity POC ABG pH POC ABG pCO2 POC ABG pO2 ABG pO2 ABG HCO3 ABG Base Excess ABG Hemoglobin Oxyhemoglobin Sodium 147 H Potassium Chloride Carbon Dioxide BUN 82 H Creatinine 1.8 H Glucose 137 H POC Glucose 164 H 157 H Lactic Acid Calcium Phosphorus Magnesium Direct Bilirubin AST ALT Alkaline Phosphatase Lactate Dehydrogenase Troponin T C-Reactive Protein Total Protein Albumin Prealbumin Triglycerides Cholesterol LDL Cholesterol Direct HDL Cholesterol Urine pH Urine WBC (Auto) Urine Creatinine Urine Total Protein Fluid Total Protein Vancomycin Trough Rheumatoid Factor Complement C4 Miscellaneous Test Crossmatch 01/09/17 01/09/17 01/09/17 05:42 08:22 10:57 WBC RBC Hgb Hct MCV MCH MCHC RDW Plt Count Lymph % (Auto) Creek % (Auto) Lymph # [place] # Baso # Seg Neutrophils % Seg Neuts % (Manual) Lymphocytes % (Manual) Monocytes % (Manual) Eosinophils % (Manual) Basophils % (Manual) Nucleated RBC % Seg Neutrophils # Seg Neutrophils # Man Lymphocytes # (Manual) Monocytes # (Manual) Eosinophils # (Manual) Basophils # (Manual) PT INR Fibrinogen dRVVT Confirm Interp Factor V Activity POC ABG pH POC ABG pCO2 POC ABG pO2 ABG pO2 ABG HCO3 ABG Base Excess ABG Hemoglobin Oxyhemoglobin Sodium Potassium Chloride Carbon Dioxide BUN Creatinine Glucose POC Glucose 156 H 122 H Lactic Acid 2.30 H* Calcium Phosphorus Magnesium Direct Bilirubin AST ALT Alkaline Phosphatase Lactate Dehydrogenase Troponin T C-Reactive Protein Total Protein Albumin Prealbumin Triglycerides Cholesterol LDL Cholesterol Direct HDL Cholesterol Urine pH Urine WBC (Auto) Urine Creatinine Urine Total Protein Fluid Total Protein Vancomycin Trough Rheumatoid Factor Complement C4 Miscellaneous Test Crossmatch 01/09/17 01/09/17 01/09/17 13:30 17:14 18:45 WBC RBC Hgb Hct MCV MCH MCHC RDW Plt Count Lymph % (Auto) Creek % (Auto) Lymph # [place] # Baso # Seg Neutrophils % Seg Neuts % (Manual) Lymphocytes % (Manual) Monocytes % (Manual) Eosinophils % (Manual) Basophils % (Manual) Nucleated RBC % Seg Neutrophils # Seg Neutrophils # Man Lymphocytes # (Manual) Monocytes # (Manual) Eosinophils # (Manual) Basophils # (Manual) PT INR Fibrinogen dRVVT Confirm Interp Factor V Activity POC ABG pH POC ABG pCO2 POC ABG pO2 ABG pO2 ABG HCO3 ABG Base Excess ABG Hemoglobin Oxyhemoglobin Sodium Potassium Chloride Carbon Dioxide BUN Creatinine Glucose POC Glucose 127 H Lactic Acid Calcium Phosphorus Magnesium Direct Bilirubin AST ALT Alkaline Phosphatase Lactate Dehydrogenase Troponin T C-Reactive Protein 24.70 H Total Protein Albumin Prealbumin Triglycerides Cholesterol LDL Cholesterol Direct HDL Cholesterol Urine pH Urine WBC (Auto) Urine Creatinine Urine Total Protein Fluid Total Protein Vancomycin Trough Rheumatoid Factor Complement C4 Miscellaneous Test Flexitest 1 H Crossmatch 01/10/17 01/10/17 01/10/17 01:21 04:00 04:00 WBC 18.1 H RBC 3.22 L Hgb 8.8 L Hct 27.0 L D MCV MCH 27 L MCHC RDW 17.0 H Plt Count Lymph % (Auto) Creek % (Auto) Lymph # [place] # Baso # Seg Neutrophils % Seg Neuts % (Manual) Lymphocytes % (Manual) Monocytes % (Manual) Eosinophils % (Manual) Basophils % (Manual) Nucleated RBC % Seg Neutrophils # Seg Neutrophils # Man Lymphocytes # (Manual) Monocytes # (Manual) Eosinophils # (Manual) Basophils # (Manual) PT INR Fibrinogen dRVVT Confirm Interp Factor V Activity POC ABG pH POC ABG pCO2 POC ABG pO2 ABG pO2 ABG HCO3 ABG Base Excess ABG Hemoglobin Oxyhemoglobin Sodium Potassium Chloride Carbon Dioxide BUN 59 H Creatinine 1.3 H Glucose 122 H POC Glucose 160 H Lactic Acid Calcium Phosphorus Magnesium Direct Bilirubin AST ALT Alkaline Phosphatase Lactate Dehydrogenase Troponin T C-Reactive Protein Total Protein Albumin Prealbumin Triglycerides Cholesterol LDL Cholesterol Direct HDL Cholesterol Urine pH Urine WBC (Auto) Urine Creatinine Urine Total Protein Fluid Total Protein Vancomycin Trough Rheumatoid Factor Complement C4 Miscellaneous Test Crossmatch 01/10/17 01/10/17 01/10/17 05:36 12:14 17:55 WBC RBC Hgb Hct MCV MCH MCHC RDW Plt Count Lymph % (Auto) Creek % (Auto) Lymph # [place] # Baso # Seg Neutrophils % Seg Neuts % (Manual) Lymphocytes % (Manual) Monocytes % (Manual) Eosinophils % (Manual) Basophils % (Manual) Nucleated RBC % Seg Neutrophils # Seg Neutrophils # Man Lymphocytes # (Manual) Monocytes # (Manual) Eosinophils # (Manual) Basophils # (Manual) PT INR Fibrinogen dRVVT Confirm Interp Factor V Activity POC ABG pH POC ABG pCO2 POC ABG pO2 ABG pO2 ABG HCO3 ABG Base Excess ABG Hemoglobin Oxyhemoglobin Sodium Potassium Chloride Carbon Dioxide BUN Creatinine Glucose POC Glucose 163 H 120 H 144 H Lactic Acid Calcium Phosphorus Magnesium Direct Bilirubin AST ALT Alkaline Phosphatase Lactate Dehydrogenase Troponin T C-Reactive Protein Total Protein Albumin Prealbumin Triglycerides Cholesterol LDL Cholesterol Direct HDL Cholesterol Urine pH Urine WBC (Auto) Urine Creatinine Urine Total Protein Fluid Total Protein Vancomycin Trough Rheumatoid Factor Complement C4 Miscellaneous Test Crossmatch 01/11/17 01/11/17 01/11/17 00:09 04:00 04:00 WBC 15.8 H RBC 3.04 L Hgb 8.2 L Hct 25.5 L MCV MCH 27 L MCHC RDW 17.3 H Plt Count Lymph % (Auto) Creek % (Auto) Lymph # [place] # Baso # Seg Neutrophils % Seg Neuts % (Manual) Lymphocytes % (Manual) Monocytes % (Manual) Eosinophils % (Manual) Basophils % (Manual) Nucleated RBC % Seg Neutrophils # Seg Neutrophils # Man Lymphocytes # (Manual) Monocytes # (Manual) Eosinophils # (Manual) Basophils # (Manual) PT INR Fibrinogen dRVVT Confirm Interp Factor V Activity POC ABG pH POC ABG pCO2 POC ABG pO2 ABG pO2 ABG HCO3 ABG Base Excess ABG Hemoglobin Oxyhemoglobin Sodium Potassium Chloride Carbon Dioxide BUN 78 H Creatinine 1.6 H Glucose 109 H POC Glucose 122 H Lactic Acid Calcium Phosphorus Magnesium Direct Bilirubin AST ALT Alkaline Phosphatase Lactate Dehydrogenase Troponin T C-Reactive Protein Total Protein Albumin Prealbumin Triglycerides Cholesterol LDL Cholesterol Direct HDL Cholesterol Urine pH Urine WBC (Auto) Urine Creatinine Urine Total Protein Fluid Total Protein Vancomycin Trough Rheumatoid Factor Complement C4 Miscellaneous Test Crossmatch 01/11/17 01/11/17 01/11/17 12:46 18:23 23:42 WBC RBC Hgb Hct MCV MCH MCHC RDW Plt Count Lymph % (Auto) Creek % (Auto) Lymph # [place] # Baso # Seg Neutrophils % Seg Neuts % (Manual) Lymphocytes % (Manual) Monocytes % (Manual) Eosinophils % (Manual) Basophils % (Manual) Nucleated RBC % Seg Neutrophils # Seg Neutrophils # Man Lymphocytes # (Manual) Monocytes # (Manual) Eosinophils # (Manual) Basophils # (Manual) PT INR Fibrinogen dRVVT Confirm Interp Factor V Activity POC ABG pH POC ABG pCO2 POC ABG pO2 ABG pO2 ABG HCO3 ABG Base Excess ABG Hemoglobin Oxyhemoglobin Sodium Potassium Chloride Carbon Dioxide BUN Creatinine Glucose POC Glucose 148 H 125 H 124 H Lactic Acid Calcium Phosphorus Magnesium Direct Bilirubin AST ALT Alkaline Phosphatase Lactate Dehydrogenase Troponin T C-Reactive Protein Total Protein Albumin Prealbumin Triglycerides Cholesterol LDL Cholesterol Direct HDL Cholesterol Urine pH Urine WBC (Auto) Urine Creatinine Urine Total Protein Fluid Total Protein Vancomycin Trough Rheumatoid Factor Complement C4 Miscellaneous Test Crossmatch 01/12/17 01/12/17 01/12/17 04:30 04:30 05:47 WBC 15.8 H RBC 3.31 L Hgb 8.9 L Hct 27.9 L MCV MCH 27 L MCHC RDW 17.4 H Plt Count Lymph % (Auto) Creek % (Auto) Lymph # [place] # Baso # Seg Neutrophils % Seg Neuts % (Manual) Lymphocytes % (Manual) Monocytes % (Manual) Eosinophils % (Manual) Basophils % (Manual) Nucleated RBC % Seg Neutrophils # Seg Neutrophils # Man Lymphocytes # (Manual) Monocytes # (Manual) Eosinophils # (Manual) Basophils # (Manual) PT INR Fibrinogen dRVVT Confirm Interp Factor V Activity POC ABG pH POC ABG pCO2 POC ABG pO2 ABG pO2 ABG HCO3 ABG Base Excess ABG Hemoglobin Oxyhemoglobin Sodium Potassium Chloride Carbon Dioxide BUN 57 H Creatinine Glucose 121 H POC Glucose 110 H Lactic Acid Calcium Phosphorus 2.10 L Magnesium Direct Bilirubin AST ALT Alkaline Phosphatase Lactate Dehydrogenase Troponin T C-Reactive Protein Total Protein Albumin Prealbumin Triglycerides Cholesterol LDL Cholesterol Direct HDL Cholesterol Urine pH Urine WBC (Auto) Urine Creatinine Urine Total Protein Fluid Total Protein Vancomycin Trough Rheumatoid Factor Complement C4 Miscellaneous Test Crossmatch 11/23/17 11/23/17 11/23/17 11:35 17:45 23:14 WBC RBC Hgb Hct MCV MCH MCHC RDW Plt Count Lymph % (Auto) Creek % (Auto) Lymph # [place] # Baso # Seg Neutrophils % Seg Neuts % (Manual) Lymphocytes % (Manual) Monocytes % (Manual) Eosinophils % (Manual) Basophils % (Manual) Nucleated RBC % Seg Neutrophils # Seg Neutrophils # Man Lymphocytes # (Manual) Monocytes # (Manual) Eosinophils # (Manual) Basophils # (Manual) PT INR Fibrinogen dRVVT Confirm Interp Factor V Activity POC ABG pH POC ABG pCO2 POC ABG pO2 ABG pO2 ABG HCO3 ABG Base Excess ABG Hemoglobin Oxyhemoglobin Sodium Potassium Chloride Carbon Dioxide BUN Creatinine Glucose POC Glucose 146 H 117 H 123 H Lactic Acid Calcium Phosphorus Magnesium Direct Bilirubin AST ALT Alkaline Phosphatase Lactate Dehydrogenase Troponin T C-Reactive Protein Total Protein Albumin Prealbumin Triglycerides Cholesterol LDL Cholesterol Direct HDL Cholesterol Urine pH Urine WBC (Auto) Urine Creatinine Urine Total Protein Fluid Total Protein Vancomycin Trough Rheumatoid Factor Complement C4 Miscellaneous Test Crossmatch 01/13/17 01/13/17 01/13/17 05:32 06:00 12:17 WBC RBC Hgb Hct MCV MCH MCHC RDW Plt Count Lymph % (Auto) Creek % (Auto) Lymph # [place] # Baso # Seg Neutrophils % Seg Neuts % (Manual) Lymphocytes % (Manual) Monocytes % (Manual) Eosinophils % (Manual) Basophils % (Manual) Nucleated RBC % Seg Neutrophils # Seg Neutrophils # Man Lymphocytes # (Manual) Monocytes # (Manual) Eosinophils # (Manual) Basophils # (Manual) PT INR Fibrinogen dRVVT Confirm Interp Factor V Activity POC ABG pH POC ABG pCO2 POC ABG pO2 ABG pO2 ABG HCO3 ABG Base Excess ABG Hemoglobin Oxyhemoglobin Sodium Potassium Chloride Carbon Dioxide BUN 80 H Creatinine 1.4 H Glucose 106 H POC Glucose 106 H 168 H Lactic Acid Calcium Phosphorus Magnesium Direct Bilirubin AST ALT Alkaline Phosphatase Lactate Dehydrogenase Troponin T C-Reactive Protein Total Protein Albumin Prealbumin Triglycerides Cholesterol LDL Cholesterol Direct HDL Cholesterol Urine pH Urine WBC (Auto) Urine Creatinine Urine Total Protein Fluid Total Protein Vancomycin Trough Rheumatoid Factor Complement C4 Miscellaneous Test Crossmatch 01/13/17 01/13/17 01/13/17 15:50 17:30 23:42 WBC RBC Hgb Hct MCV MCH MCHC RDW Plt Count Lymph % (Auto) Creek % (Auto) Lymph # [place] # Baso # Seg Neutrophils % Seg Neuts % (Manual) Lymphocytes % (Manual) Monocytes % (Manual) Eosinophils % (Manual) Basophils % (Manual) Nucleated RBC % Seg Neutrophils # Seg Neutrophils # Man Lymphocytes # (Manual) Monocytes # (Manual) Eosinophils # (Manual) Basophils # (Manual) PT 15.4 H INR 1.16 H Fibrinogen dRVVT Confirm Interp Factor V Activity POC ABG pH POC ABG pCO2 POC ABG pO2 ABG pO2 ABG HCO3 ABG Base Excess ABG Hemoglobin Oxyhemoglobin Sodium Potassium Chloride Carbon Dioxide BUN Creatinine Glucose POC Glucose 110 H 155 H Lactic Acid Calcium Phosphorus Magnesium Direct Bilirubin AST ALT Alkaline Phosphatase Lactate Dehydrogenase Troponin T C-Reactive Protein Total Protein Albumin Prealbumin Triglycerides Cholesterol LDL Cholesterol Direct HDL Cholesterol Urine pH Urine WBC (Auto) Urine Creatinine Urine Total Protein Fluid Total Protein Vancomycin Trough Rheumatoid Factor Complement C4 Miscellaneous Test Crossmatch 01/14/17 01/14/17 01/14/17 05:24 05:30 12:48 WBC RBC Hgb Hct MCV MCH MCHC RDW Plt Count Lymph % (Auto) Creek % (Auto) Lymph # [place] # Baso # Seg Neutrophils % Seg Neuts % (Manual) Lymphocytes % (Manual) Monocytes % (Manual) Eosinophils % (Manual) Basophils % (Manual) Nucleated RBC % Seg Neutrophils # Seg Neutrophils # Man Lymphocytes # (Manual) Monocytes # (Manual) Eosinophils # (Manual) Basophils # (Manual) PT INR Fibrinogen dRVVT Confirm Interp Factor V Activity POC ABG pH POC ABG pCO2 POC ABG pO2 ABG pO2 ABG HCO3 ABG Base Excess ABG Hemoglobin Oxyhemoglobin Sodium Potassium Chloride Carbon Dioxide BUN 58 H Creatinine Glucose 114 H POC Glucose 121 H 130 H Lactic Acid Calcium Phosphorus Magnesium Direct Bilirubin AST ALT Alkaline Phosphatase Lactate Dehydrogenase Troponin T C-Reactive Protein Total Protein Albumin Prealbumin Triglycerides Cholesterol LDL Cholesterol Direct HDL Cholesterol Urine pH Urine WBC (Auto) Urine Creatinine Urine Total Protein Fluid Total Protein Vancomycin Trough Rheumatoid Factor Complement C4 Miscellaneous Test Crossmatch 01/14/17 01/15/17 01/15/17 17:36 00:15 05:01 WBC RBC Hgb Hct MCV MCH MCHC RDW Plt Count Lymph % (Auto) Creek % (Auto) Lymph # [place] # Baso # Seg Neutrophils % Seg Neuts % (Manual) Lymphocytes % (Manual) Monocytes % (Manual) Eosinophils % (Manual) Basophils % (Manual) Nucleated RBC % Seg Neutrophils # Seg Neutrophils # Man Lymphocytes # (Manual) Monocytes # (Manual) Eosinophils # (Manual) Basophils # (Manual) PT INR Fibrinogen dRVVT Confirm Interp Factor V Activity POC ABG pH POC ABG pCO2 POC ABG pO2 ABG pO2 ABG HCO3 ABG Base Excess ABG Hemoglobin Oxyhemoglobin Sodium Potassium Chloride Carbon Dioxide BUN Creatinine Glucose POC Glucose 135 H 132 H 126 H Lactic Acid Calcium Phosphorus Magnesium Direct Bilirubin AST ALT Alkaline Phosphatase Lactate Dehydrogenase Troponin T C-Reactive Protein Total Protein Albumin Prealbumin Triglycerides Cholesterol LDL Cholesterol Direct HDL Cholesterol Urine pH Urine WBC (Auto) Urine Creatinine Urine Total Protein Fluid Total Protein Vancomycin Trough Rheumatoid Factor Complement C4 Miscellaneous Test Crossmatch 01/15/17 01/15/17 01/15/17 11:55 12:45 12:45 WBC 16.2 H RBC 3.00 L Hgb 8.1 L Hct 25.4 L MCV MCH 27 L MCHC RDW 17.6 H Plt Count Lymph % (Auto) 11.7 L Creek % (Auto) 7.8 H Lymph # [place] # 1.3 H Baso # Seg Neutrophils % 80.1 H Seg Neuts % (Manual) Lymphocytes % (Manual) Monocytes % (Manual) Eosinophils % (Manual) Basophils % (Manual) Nucleated RBC % Seg Neutrophils # 13.0 H Seg Neutrophils # Man Lymphocytes # (Manual) Monocytes # (Manual) Eosinophils # (Manual) Basophils # (Manual) PT INR Fibrinogen dRVVT Confirm Interp Factor V Activity POC ABG pH POC ABG pCO2 POC ABG pO2 ABG pO2 ABG HCO3 ABG Base Excess ABG Hemoglobin Oxyhemoglobin Sodium 136 L Potassium Chloride Carbon Dioxide BUN 87 H Creatinine 1.7 H Glucose 108 H POC Glucose 125 H Lactic Acid Calcium Phosphorus Magnesium Direct Bilirubin AST ALT Alkaline Phosphatase Lactate Dehydrogenase Troponin T C-Reactive Protein Total Protein Albumin Prealbumin Triglycerides Cholesterol LDL Cholesterol Direct HDL Cholesterol Urine pH Urine WBC (Auto) Urine Creatinine Urine Total Protein Fluid Total Protein Vancomycin Trough Rheumatoid Factor Complement C4 Miscellaneous Test Crossmatch 01/15/17 01/15/17 01/16/17 17:31 23:39 05:23 WBC RBC Hgb Hct MCV MCH MCHC RDW Plt Count Lymph % (Auto) Creek % (Auto) Lymph # [place] # Baso # Seg Neutrophils % Seg Neuts % (Manual) Lymphocytes % (Manual) Monocytes % (Manual) Eosinophils % (Manual) Basophils % (Manual) Nucleated RBC % Seg Neutrophils # Seg Neutrophils # Man Lymphocytes # (Manual) Monocytes # (Manual) Eosinophils # (Manual) Basophils # (Manual) PT INR Fibrinogen dRVVT Confirm Interp Factor V Activity POC ABG pH POC ABG pCO2 POC ABG pO2 ABG pO2 ABG HCO3 ABG Base Excess ABG Hemoglobin Oxyhemoglobin Sodium Potassium Chloride Carbon Dioxide BUN Creatinine Glucose POC Glucose 129 H 112 H 118 H Lactic Acid Calcium Phosphorus Magnesium Direct Bilirubin AST ALT Alkaline Phosphatase Lactate Dehydrogenase Troponin T C-Reactive Protein Total Protein Albumin Prealbumin Triglycerides Cholesterol LDL Cholesterol Direct HDL Cholesterol Urine pH Urine WBC (Auto) Urine Creatinine Urine Total Protein Fluid Total Protein Vancomycin Trough Rheumatoid Factor Complement C4 Miscellaneous Test Crossmatch 01/16/17 Unknown WBC RBC Hgb Hct MCV MCH MCHC RDW Plt Count Lymph % (Auto) Creek % (Auto) Lymph # [place] # Baso # Seg Neutrophils % Seg Neuts % (Manual) Lymphocytes % (Manual) Monocytes % (Manual) Eosinophils % (Manual) Basophils % (Manual) Nucleated RBC % Seg Neutrophils # Seg Neutrophils # Man Lymphocytes # (Manual) Monocytes # (Manual) Eosinophils # (Manual) Basophils # (Manual) PT INR Fibrinogen dRVVT Confirm Interp Factor V Activity POC ABG pH POC ABG pCO2 POC ABG pO2 ABG pO2 ABG HCO3 ABG Base Excess ABG Hemoglobin Oxyhemoglobin Sodium 135 L Potassium Chloride Carbon Dioxide BUN 101 H Creatinine 1.8 H Glucose 117 H POC Glucose Lactic Acid Calcium Phosphorus 5.80 H Magnesium Direct Bilirubin AST ALT Alkaline Phosphatase Lactate Dehydrogenase Troponin T C-Reactive Protein Total Protein Albumin Prealbumin Triglycerides Cholesterol LDL Cholesterol Direct HDL Cholesterol Urine pH Urine WBC (Auto) Urine Creatinine Urine Total Protein Fluid Total Protein Vancomycin Trough Rheumatoid Factor Complement C4 Miscellaneous Test Crossmatch Chest x-ray: image reviewed Allied health notes reviewed: RT
--- NOTE | 2017-01-16 13:34 | Progress Note ---
Assessment and Plan Assessment: 1) Recurrent SIRS: unclear source, better. Unclear source. DDx-infected sacral decubiti, recurrent UTI, VAP ?? 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 3) History of Candidemia: -Blood cultures positive for Silvia albicans on 09/23 and 09/25 -Blood cultures negative on 09/30 -PICC line changed on 10/03 -Source ? gastric perf (PEG placed on 09/20) +/- TPN +/- central lines -TTE 10/07 no vegetations -PICC exchanged on 10/03 -fully treated with micafungin for 14 days last day 10/13 4) History CA-UTI s/p gutierrez exchanged 5) Diarrhea - ? etiology ? antibiotic-induced, not better. 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 from GI bleed 13) Recent abdominal wall abscess at surgical site-treated 14 ) Recent Enterococcal bacteremia from PICC line infection. 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 no cultures obtained 16) Presumed VAP: sputum + MDR Pseudomonas / Proteus Plan: -obtain wound cultures - pending - discussed with wound care -continue meropenem day 8 (if she has sacral osteo will do 4 weeks) -f/u pleural effusion I will be off tomorrow, available on the phone and will be back rounding on the weekend Thank you Dr Hodges for your consultation, will follow up with you. Pauline Carias MD Infectious Diseases Specialist [facility] ([facility] M [phone] O [phone] Subjective Date of service: 01/16/17 Principal diagnosis: Acute resp failure on MVS; S/P Acute CVA; Acute Encephalopathy; JUANITA Interval history: Interval history: remains on the vent via trach no fever, off pressors, + TPN, underwent thoracentesis Microbiology: Blood cultures: 09/13 neg 8/ Silvia albicans 09/25 Silvia 09/29 neg 10/07 neg 16 neg 11/07 ngtd 103 E faecalis 1 of 4 bottles 11/25 neg 11/ neg 11 ngtd Urine cultures: 09/10 neg 09/13 neg 8/ 10-100K mixed species 10/07 neg 11/05 VRE 11/07 mixed bacteria Respiratory cultures: 09/07 neg 09/13 neg 09/23 neg 11/07 MDR Pseudomonas 11/21 tracheal + VRE 01/09 Pseudomonas x 3 and Proteues Wound cultures: 10/17 abd wall wound purulence + Pseudomonas MDR Stool cultures: cath tip 11/07 + [employer] Current Antimicrobials: meropenem 01/08 Previous Antimicrobials: Zosyn 10/07 Vancomycin PO 10/01 Metronidazole 09/25 Micafungin 09/27-10/13 Meropenem 10/10 Vanco 10/17 zosyn 10/21 Cefepime 11/10 vancomyin 11/07 fluconazole 10/19 cefepime 10/29levaquin 11/05 vanco 11/23 Objective - Exam Narrative Exam: General appearance: alert non communicative, on the vent via trach in mild resp distress, no following commands Eyes: anicteric sclera, moist conjunctivae; PERRLA HENT: Atraumatic; oropharynx limited; Normal external ears. +NGT with greenish secretion Neck: +trach in place; supple, no thyromegaly or lymphadenopathy Lungs: brit coarse BS CV: rrr Abdomen: Soft, non-tender, +old PEG site no drainage. +iliostomy. Right sided Surgical site x 2 with ostomy bag draining small amount yellowish secretion Extremities: +peripheral edema Skin: sacral area wounds - per wound care STAGE 4 PRESSURE INJURY TO SACRAL MEASURES 7.5X6X2.5, WITH UNDERMINING FROM @9-1 OCLOCK-2.8CM-ULCER CLEANED WITH WOUND RECTIFYING OPERATOR-ULCER Psych: somnolent . Neuro: alert non verbal on the vent. Lines: PICC / gutierrez - Constitutional Vitals: Vital Signs Temp Pulse Resp BP Pulse Ox 100.0 F H 99 H 35 H 125/68 99 01/16/17 12:00 01/16/17 12:26 01/16/17 11:00 01/16/17 12:26 01/16/17 12:26 Temperature -Last 24 Hours Temperature 100.0 F Temperature 99.4 F Temperature 98.8 F Temperature 97.6 F Temperature 98.5 F Temperature 98.8 F Temperature 98.8 F - Labs CBC & Chem 7: 01/15/17 12:45 01/16/17 Unknown Labs: Abnormal lab results 01/15/17 01/15/17 01/16/17 Range/Units 17:31 23:39 05:23 POC ABG pH (7.35-7.45) POC ABG pCO2 (35-45) POC ABG pO2 (80-105) Sodium (137-145) mmol/L BUN (7-17) mg/dL Creatinine (0.7-1.2) mg/dL Glucose (65-100) mg/dL POC Glucose 129 H 112 H 118 H (70-105) Phosphorus (2.5-4.5) mg/dL 01/16/17 01/16/17 01/16/17 Range/Units 11:42 12:32 Unknown POC ABG pH 7.499 H (7.35-7.45) POC ABG pCO2 30.9 L (35-45) POC ABG pO2 51 L (80-105) Sodium 135 L (137-145) mmol/L BUN 101 H (7-17) mg/dL Creatinine 1.8 H (0.7-1.2) mg/dL Glucose 117 H (65-100) mg/dL POC Glucose 133 H (70-105) Phosphorus 5.80 H (2.5-4.5) mg/dL
--- NOTE | 2017-01-16 14:48 | Progress Note ---
Assessment and Plan Assessment and plan: Patient is 46-year-old woman with a history of hypertension, diabetes mellitus, asthma, hyperlipidemia, chronic kidney disease and anxiety, who was brought in by family because she couldn't get her words out, her face was also twisted, she was admitted for acute CVA and accelerated hypertension, she had a hx of poor adherence with her medications, and uncontrolled htn. Patient's SBP on admission was noted be greater than 260. TPA was started but this it was discontinued after 5 minutes because her blood pressure became uncontrolled. The TPA was not initiated again because the patient was outside the TPA window. Patient has had a prolonged hospital stay complicated with recurrent severe sepsis. Patient with most recent event also status post cardiac arrest on and received CPR. -Severe Sepsis with septic shock (shock resolved) Patient with multiple episodes of sepsis. Initial episode due to presumed aspiration pneumonia and septic episode on 09/23 from candidemia, then a third episode from peritonitis from gastric perforation from dislodged PEG +/-UTI. Patient was also noted to have had Candidemia with Blood cultures positive for Silvia albicans 09/23, 09/25 but negative on 09/30. Antibiotic discontinued on 12/05 per ID. patient is s/p R thoracentesis on 11/14, 240cc of serous fluid removed, cx of fluid was negative. Also, Stool negative for C. difficile -Surgical wound infection/gram-negative sepsis/candidemia/peritonitis/fungemia. Continue wound care to ostomy sites -Acute hypoxic respiratory failure, status post tracheostomy Patient placed back on ventilation. Patient currently with CPAP mode. Patient failed T-piece trials. Tracheostomy tube leak. Pulmonary following -Acute massive CVA with mass effect; continue antiplatelets and statins CT showed continued evolution of left MCA infarct with slight mass effect and edema, and there is no hemorrhage -PRINCE showed hyperdynamic ventricle with ef of 75%, neither clot nor septal defect seen -MRA Brain shows near complete occlusion of M2 and M3 of the left MCA carotid doppler negative -Echo shows preserved systolic function but does show some left ventricular diastolic dysfunction -continue asa and statin -Oliguric acute kidney injury. Etiology secondary to ATN on CKD. Baseline creatinine is approximately 1.7. -Dislodged PEG tube: Status post repair of gastric perforation which wedge gastrectomy -Paroxysmal atrial fibrillation with rapid ventricular rate, failed cardioversion Continue current medications, Not a candidate for anticoagulation secondary to anemia, thrombocytopenia and massive CVA -Anemia; probably secondary to GI bleeding Patient received multiple units of PRBC in the past, hemoglobin currently stable -Toxic metabolic encephalopathy; supportive care -Diabetes mellitus type 2, Insulin/SSI -Severe protein caloric malnutrition, cont TPN -s/p Thrombocytopenia. Now resolved -DVT prophylaxis, SCDs, no pharmacological agent given anemia , thrombocytopenia , massive stroke -Full code status, very poor prognosis now on TPN 12/18/16: yesterday pt became hypotensive after dialysis and Vasopressin was started by Dr. Lara. She was given iv hydralazine overnight. She is still on Vasopressin, now back in AFib/aflutter with RVR. i d/w Dr. Rollins who recommends iv amiodarone drip without bolus. I also spoke with [facility], Dr. De Leon. per Dr. Rollins: Paroxysmal Afib s/p failed cardioversion on 09/25 on IV lopressor for suppression considered not a candidate for anticoagulation due to severe anemia requiring blood transfusion 12/19/16: still on vasopressin, convert back to sinus, not on Amiodarone. Still on TPN, reorder restraints 01/09/17: I am back on Ms. العراقي' care team Ethics consult pending, family refuse hospice, Insurance denied LTACH When abdominal wound heals, ?place PEG and send to custodial. Patient now on recurrent anemia requiring 2 units packed red blood cell: ccm is following Severe Leukocytosis, re-consulted ID. If leukocytosis is not improving should repeat CT abdomen and pelvis to rule out ischemic bowel==>not done, Cr increased to 1.8 today. Will repeat labs in am The high probability of a clinically significant, sudden or life threatening deterioration of the [neurologic, CV] system(s) required my full and direct attention, intervention and personal management. The aggregate critical care time was [32] minutes. This time is in addition to time spent performing reported procedures but includes the following: [x] Data Review and interpretation [x] Patient assessment and monitoring of vital signs [x] Documentation [x] Medication orders and management 01/10/17 Cr has increase, will check electrolytes. Ethics committee awaiting for family meeting but some family has not provided Zulay, case management with their available times. Hopefully, family after the iday 01/11/17 Hemodialysis today, no change. 01/12-: review labs, await family mtg. 01/14/17: continue iv merrem. Thoracentesis done 01/15/17: change dressing. 01/16/17: no new change. History Interval history: Patient seen and examined. Follow up on current diagnosis/respiratory failure. Still unresponsive, Imaging, old records, testing, labs, nursing notes reviewed. Hospitalist Physical - Physical exam Narrative exam: GEN: Ill appearing, trach, staring, in vegatative state NECK: SUPPLE, trach in place, ngt in place CVS: regular currently NORMAL S1S2 LUNGS/CHEST: NORMAL CHEST EXPANSION B, GOOD AIR ENTRY B ABD: SOFT, NTND, 3 ostomy bags in 3 different locations, GBS, NO REBOUND OR GUARDING EXT/SKIN: NO SIGNIFICANT EDEMA OR RASH MSK: no spontaneous movement NEURO: CN 2-12 GROSSLY INTACT, on a ventilator PSY: Comatose, - Constitutional Vitals: Temp Pulse Resp BP Pulse Ox 100.0 F H 102 H 32 H 125/68 99 01/16/17 12:00 01/16/17 14:39 01/16/17 14:39 01/16/17 12:26 01/16/17 12:26 General appearance: Present: no acute distress, well-nourished, obese Results - Labs CBC & Chem 7: 01/15/17 12:45 01/16/17 Unknown Labs: Laboratory Last Values WBC 16.2 K/mm3 (4.5-11.0) H 01/15/17 12:45 RBC 3.00 M/mm3 (3.65-5.03) L 01/15/17 12:45 Hgb 8.1 gm/dl (10.1-14.3) L 01/15/17 12:45 Hct 25.4 % (30.3-42.9) L 01/15/17 12:45 MCV 85 fl (79-97) 01/15/17 12:45 MCH 27 pg (28-32) L 01/15/17 12:45 MCHC 32 % (30-34) 01/15/17 12:45 RDW 17.6 % (13.2-15.2) H 01/15/17 12:45 Plt Count 287 K/mm3 (140-440) 01/15/17 12:45 Lymph % (Auto) 11.7 % (13.4-35.0) L 01/15/17 12:45 [place] % (Auto) 7.8 % (0.0-7.3) H 01/15/17 12:45 Eos % (Auto) 0.1 % (0.0-4.3) 01/15/17 12:45 Baso % (Auto) 0.3 % (0.0-1.8) 01/15/17 12:45 Lymph # 1.9 K/mm3 (1.2-5.4) 01/15/17 12:45 [place] # 1.3 K/mm3 (0.0-0.8) H 01/15/17 12:45 Eos # 0.0 K/mm3 (0.0-0.4) 01/15/17 12:45 Baso # 0.0 K/mm3 (0.0-0.1) 01/15/17 12:45 Add Manual Diff Complete 12/19/16 05:02 Total Counted 100 12/19/16 05:02 Seg Neutrophils % 80.1 % (40.0-70.0) H 01/15/17 12:45 Seg Neuts % (Manual) 64.0 % (40.0-70.0) 12/19/16 05:02 Band Neutrophils % 15.0 % 12/19/16 05:02 Lymphocytes % (Manual) 13.0 % (13.4-35.0) L 12/19/16 05:02 Reactive Lymphs % (Man) 0 % 12/19/16 05:02 Monocytes % (Manual) 7.0 % (0.0-7.3) 12/19/16 05:02 Eosinophils % (Manual) 0 % (0.0-4.3) 12/19/16 05:02 Basophils % (Manual) 1.0 % (0.0-1.8) 12/19/16 05:02 Metamyelocytes % 0 % 12/19/16 05:02 Myelocytes % 0 % 12/19/16 05:02 Promyelocytes % 0 % 12/19/16 05:02 Blast Cells % 0 % 12/19/16 05:02 Nucleated RBC % 1.0 % (0.0-0.9) H 12/19/16 05:02 Seg Neutrophils # 13.0 K/mm3 (1.8-7.7) H 01/15/17 12:45 Seg Neutrophils # Man 12.9 K/mm3 (1.8-7.7) H 12/19/16 05:02 Band Neutrophils # 3.0 K/mm3 12/19/16 05:02 Lymphocytes # (Manual) 2.6 K/mm3 (1.2-5.4) 12/19/16 05:02 Abs React Lymphs (Man) 0.0 K/mm3 12/19/16 05:02 Monocytes # (Manual) 1.4 K/mm3 (0.0-0.8) H 12/19/16 05:02 Eosinophils # (Manual) 0.0 K/mm3 (0.0-0.4) 12/19/16 05:02 Basophils # (Manual) 0.2 K/mm3 (0.0-0.1) H 12/19/16 05:02 Metamyelocytes # 0.0 K/mm3 12/19/16 05:02 Myelocytes # 0.0 K/mm3 12/19/16 05:02 Promyelocytes # 0.0 K/mm3 12/19/16 05:02 Blast Cells # 0.0 K/mm3 12/19/16 05:02 Pathologist Review 09/13/16 04:00 WBC Morphology Not Reportable 12/19/16 05:02 Hypersegmented Neuts Not Reportable 12/19/16 05:02 Hyposegmented Neuts Not Reportable 12/19/16 05:02 Hypogranular Neuts Not Reportable 12/19/16 05:02 Smudge Cells Not Reportable 12/19/16 05:02 Toxic Granulation Not Reportable 12/19/16 05:02 Toxic Vacuolation Not Reportable 12/19/16 05:02 Dohle Bodies Not Reportable 12/19/16 05:02 Pelger-Huet Anomaly Not Reportable 12/19/16 05:02 Jasmina Rods Not Reportable 12/19/16 05:02 Platelet Estimate Consistent w auto 12/19/16 05:02 Clumped Platelets Not Reportable 12/19/16 05:02 Plt Clumps, EDTA Not Reportable 12/19/16 05:02 Large Platelets Not Reportable 12/19/16 05:02 Giant Platelets Not Reportable 12/19/16 05:02 Platelet Satelliting Not Reportable 12/19/16 05:02 Plt Morphology Comment Not Reportable 12/19/16 05:02 RBC Morphology Not Reportable 12/19/16 05:02 Dimorphic RBCs Not Reportable 12/19/16 05:02 Polychromasia Not Reportable 12/19/16 05:02 Hypochromasia Not Reportable 12/19/16 05:02 Poikilocytosis Not Reportable 12/19/16 05:02 Anisocytosis Not Reportable 12/19/16 05:02 Microcytosis Not Reportable 12/19/16 05:02 Macrocytosis Not Reportable 12/19/16 05:02 Spherocytes Not Reportable 12/19/16 05:02 Pappenheimer Bodies Not Reportable 12/19/16 05:02 Sickle Cells Not Reportable 12/19/16 05:02 Target Cells Few 12/19/16 05:02 Tear Drop Cells Not Reportable 12/19/16 05:02 Ovalocytes Not Reportable 12/19/16 05:02 Stomatocytes Rare 12/03/16 04:00 Helmet Cells Not Reportable 12/19/16 05:02 [place] Bodies Not Reportable 12/19/16 05:02 [place] Rings Not Reportable 12/19/16 05:02 [place] Cells Not Reportable 12/19/16 05:02 Bite Cells Not Reportable 12/19/16 05:02 Crenated Cell Not Reportable 12/19/16 05:02 Elliptocytes Not Reportable 12/19/16 05:02 Acanthocytes (Spur) Not Reportable 12/19/16 05:02 Rouleaux Not Reportable 12/19/16 05:02 Hemoglobin C Crystals Not Reportable 12/19/16 05:02 Schistocytes Not Reportable 12/19/16 05:02 Malaria parasites Not Reportable 12/19/16 05:02 ESR > 140.0 mm/Hr (0-20) 09/08/16 11:48 Jun Bodies Not Reportable 12/19/16 05:02 Hem Pathologist Commnt No 12/19/16 05:02 PT 15.4 Sec. (12.2-14.9) H 01/13/17 15:50 INR 1.16 (0.87-1.13) H 01/13/17 15:50 APTT 33.0 Sec. (24.2-36.6) 10/09/16 03:45 Thrombin Time 16.8 Sec. (15.1-19.6) 09/03/16 00:10 Fibrinogen 750 mg/dl (211-480) H 09/08/16 11:48 Lupus Anticoagulant see below 09/12/16 09:59 LA PTT Baseline See scanned report 09/12/16 09:59 dRVVT Confirm Interp Positive (Negative) H 09/12/16 09:59 dRVVT Screen 50:50 See scanned report 09/12/16 09:59 dRVVT Mix Interpret See scanned report 09/12/16 09:59 Protein C Antigen 122 % (70-140) 09/08/16 15:35 Free Protein S 97 % normal (50-147) 09/08/16 15:35 Total Protein S 109 % (70-140) 09/08/16 15:35 Antithrombin III Ag 100 % (80-120) 09/08/16 15:35 Heparin Anti-Xa, Unfract Negative (Negative) 09/29/16 13:35 Factor V Activity 182 % (65-150) H 09/08/16 15:35 POC ABG pH 7.499 (7.35-7.45) H 01/16/17 12:32 ABG pH 7.450 pH Units (7.350-7.450) 12/05/16 Unknown POC ABG pCO2 30.9 (35-45) L 01/16/17 12:32 ABG pCO2 29.6 mm Hg 12/05/16 Unknown POC ABG pO2 51 (80-105) L 01/16/17 12:32 ABG pO2 75.2 mm Hg (80.0-90.0) L 12/05/16 Unknown POC ABG HCO3 24.0 01/16/17 12:32 ABG HCO3 20.1 mmol/L (20.0-26.0) 12/05/16 Unknown POC ABG Total CO2 25 01/16/17 12:32 POC ABG O2 Sat 89 01/16/17 12:32 ABG O2 Saturation 96.8 % (95.0-99.0) 12/05/16 Unknown ABG O2 Content 9.9 (0.0-44) 12/05/16 Unknown POC ABG Base Excess 1 01/16/17 12:32 ABG Base Excess -3.4 mmol/L (-2.0-3.0) L 12/05/16 Unknown ABG Hemoglobin 7.4 gm/dl (12.0-16.0) L 12/05/16 Unknown ABG Carboxyhemoglobin 1.8 % (0.0-5.0) 12/05/16 Unknown ABG Methemoglobin 0.6 % (0.0-1.5) 12/05/16 Unknown Oxyhemoglobin 94.5 % (95.0-99.0) L 12/05/16 Unknown FiO2 60 % 01/16/17 12:32 Sodium 135 mmol/L (137-145) L 01/16/17 Unknown Potassium 5.0 mmol/L (3.6-5.0) 01/16/17 Unknown Chloride 98.1 mmol/L (98-107) 01/16/17 Unknown Carbon Dioxide 23 mmol/L (22-30) 01/16/17 Unknown Anion Gap 19 mmol/L 01/16/17 Unknown BUN 101 mg/dL (7-17) H 01/16/17 Unknown Creatinine 1.8 mg/dL (0.7-1.2) H 01/16/17 Unknown Estimated GFR 37 ml/min 01/16/17 Unknown BUN/Creatinine Ratio 56 % 01/16/17 Unknown Glucose 117 mg/dL (65-100) H 01/16/17 Unknown POC Glucose 133 (70-105) H 01/16/17 11:42 Osmolality 351 Mosm/kg 09/16/16 11:47 Lactic Acid 2.30 mmol/L (0.7-2.0) H* 01/09/17 08:22 Calcium 8.9 mg/dL (8.4-10.2) 01/16/17 Unknown Phosphorus 5.80 mg/dL (2.5-4.5) H 01/16/17 Unknown Magnesium 2.30 mg/dL (1.7-2.3) 01/16/17 Unknown Total Bilirubin 0.50 mg/dL (0.1-1.2) 01/01/17 05:00 Direct Bilirubin 0.3 mg/dL (0-0.2) H 10/10/16 05:00 Indirect Bilirubin 0.1 mg/dL 10/10/16 05:00 AST 35 units/L (5-40) 01/01/17 05:00 ALT 51 units/L (7-56) 01/01/17 05:00 Alkaline Phosphatase 536 units/L (35-129) H 01/01/17 05:00 Ammonia 27.0 umol/L (25-60) 09/07/16 08:37 Lactate Dehydrogenase 170 units/L (91-180) 01/13/17 15:50 Total Creatine Kinase 121 units/L (30-135) 09/29/16 20:12 CK-MB (CK-2) < 1.0 ng/mL (0.0-4.0) 09/29/16 20:12 CK-MB (CK-2) Rel Index 0.8 (0-4) 09/29/16 20:12 Troponin T 0.204 ng/mL (0.00-0.029) H* 09/29/16 20:12 C-Reactive Protein 24.70 mg/dL (0.00-1.30) H 01/09/17 13:30 Total Protein 6.3 g/dL (6.3-8.2) 01/13/17 15:50 Albumin 1.5 g/dL (3.9-5) L 01/01/17 05:00 Albumin/Globulin Ratio 0.3 % 01/01/17 05:00 Prealbumin 0.110 g/L (0.200-0.400) L 12/29/16 05:15 Triglycerides 137 mg/dL (2-149) 09/29/16 20:12 Cholesterol 31 mg/dL (50-199) L 09/29/16 20:12 LDL Cholesterol Direct 4 mg/dL (50-130) L 09/29/16 20:12 HDL Cholesterol 3 mg/dL (40-59) L 09/29/16 20:12 Cholesterol/HDL Ratio 10.33 % 09/29/16 20:12 Angiotensin Convert Enz See scanned report 09/08/16 11:48 Renin 0.99 ng/mL/h (0.25-5.82) 10/07/16 10:56 Aldosterone <1 ng/dL () 10/07/16 10:56 Aldosterone/Renin Dir see below 10/07/16 10:56 Serotonin Release Assay See scanned report 09/29/16 13:35 TSH 1.010 mlU/mL (0.270-4.200) 09/07/16 08:37 HCG, Qual Negative (Negative) 09/03/16 00:10 Urine Color Yellow (Yellow) 11/05/16 13:09 Urine Turbidity Clear (Clear) 11/05/16 13:09 Urine pH 9.0 (5.0-7.0) H 11/05/16 13:09 Ur Specific [place] 1.011 (1.003-1.030) 11/05/16 13:09 Urine Protein 100 mg/dl mg/dL (Negative) 11/05/16 13:09 Urine Glucose (UA) Neg mg/dL (Negative) 11/05/16 13:09 Urine Ketones Neg mg/dL (Negative) 11/05/16 13:09 Urine Blood Neg (Negative) 11/05/16 13:09 Urine Nitrite Neg (Negative) 11/05/16 13:09 Urine Bilirubin Neg (Negative) 11/05/16 13:09 Urine Urobilinogen < 2.0 mg/dL (<2.0) 11/05/16 13:09 Ur Leukocyte Esterase Neg (Negative) 11/05/16 13:09 Urine WBC (Auto) 4.0 /HPF (0.0-6.0) 11/05/16 13:09 Urine RBC (Auto) 1.0 /HPF (0.0-6.0) 11/05/16 13:09 U Epithel Cells (Auto) 1.0 /HPF (0-13.0) 10/07/16 18:30 Urine Bacteria (Auto) 4+ /HPF (Negative) 11/05/16 13:09 Urine WBC Clumps 2+ /HPF 09/07/16 02:47 Hyaline Casts 4 /LPF 09/07/16 02:47 Urine Mucus Few /HPF 10/07/16 18:30 Urine Yeast (Budding) 3+ /HPF 10/07/16 18:30 Urine Eosinophils None seen (None Seen) 09/07/16 16:00 Urine Total Volume 950 11/12/16 10:18 Urine Creatinine 19.7 mg/dL (0.1-20.0) 11/12/16 10:18 Height (in) 65.0 inches 11/12/16 10:18 Weight (lb) 181.0 lbs 11/12/16 10:18 Creatinine Clearance 5 11/12/16 10:18 Urine Sodium 36 mEq/L 09/16/16 19:19 Urine Total Protein 16 mg/dL (5-11.8) H 09/16/16 19:19 Fluid Type Pleural 01/13/17 12:10 Fluid Color Yellow 01/13/17 12:10 Fluid Appearance Hazy 01/13/17 12:10 Fluid WBC 182 /mm3 01/13/17 12:10 Fluid RBC 41 /mm3 01/13/17 12:10 Fluid Seg Neutrophils 85.0 % 01/13/17 12:10 Fluid Lymphocytes 8.0 % 01/13/17 12:10 Fluid Reactive Lymphs 0 % 01/13/17 12:10 Fluid Monocytes 6.0 % 01/13/17 12:10 Fluid Eosinophils 1.0 % 01/13/17 12:10 Fluid Basophils 0 % 01/13/17 12:10 Fluid Total Protein < 3.0 (15.0-45.0) L 11/10/16 14:20 Fluid LDH 123 11/10/16 14:20 Fluid Comment Diff performed 01/13/17 12:10 Vancomycin Trough 2.3 ug/mL (5.0-20.0) L 09/21/16 13:00 Random Vancomycin 16.5 ug/mL (0-40.0) 11/28/16 09:45 Urine Opiates Screen Presumptive negative 09/03/16 15:11 Urine Methadone Screen Presumptive positive 09/03/16 15:11 Ur Barbiturates Screen Presumptive positive 09/03/16 15:11 Ur Phencyclidine Scrn Presumptive negative 09/03/16 15:11 Ur Amphetamines Screen Presumptive negative 09/03/16 15:11 U Benzodiazepines Scrn Presumptive negative 09/03/16 15:11 Urine Cocaine Screen Presumptive negative 09/03/16 15:11 U Marijuana (THC) Screen Presumptive positive 09/03/16 15:11 Drugs of Abuse Note Disclamer 09/03/16 15:11 Rheumatoid Factor 24 IU/ml (0-13) H 09/08/16 11:48 SAHIL Screen Negative (Negative) 09/07/16 09:20 Proteinase 3 (PR3) Ab <1.0 AI (<1.0) 09/07/16 09:20 Myeloperoxidase Ab <1.0 AI (<1.0) 09/07/16 09:20 Sjogren's Antibody <1.0 AI (<1.0) 09/08/16 15:35 Scl-70 Scleroderma Ab <1.0 AI (<1.0) 09/08/16 15:35 Centromere B Antibody <1.0 AI (<1.0) 09/08/16 12:02 Heparin-induced Plt Ab Negative (Negative) 09/29/16 13:35 UF Heparin High Dose 11 % Release 09/29/16 13:35 SUDHIR UFH Low Dose 0.1 6 % Release 09/29/16 13:35 SUDHIR UFH Low Dose 0.5 8 % Release 09/29/16 13:35 Cardiolipid IgG Ab <14 GPL (<=14) 09/12/16 09:59 Cardiolipid IgA Ab <11 APL (<=11) 09/12/16 09:59 Cardiolipid IgM Ab <12 MPL (<=12) 09/12/16 09:59 Complement C3 148 mg/dL (90-180) 09/07/16 09:20 Complement C4 58 mg/dL (16-47) H 09/07/16 09:20 RPR Nonreactive (Nonreactive) 09/08/16 11:48 Hepatitis A IgM Ab Non-reactive (NonReactive) 09/24/16 14:40 Hep Bs Antigen Non-reactive (Negative) 09/24/16 14:40 Hep B Core IgM Ab Non-reactive (NonReactive) 09/24/16 14:40 Hepatitis C Antibody Non-reactive (NonReactive) 09/24/16 14:40 HIV 1&2 Antibody Rapid Non react (Non React) 09/08/16 11:48 HIV P24 Antigen Non react (Non React) 09/08/16 11:48 Miscellaneous Test Flexitest 1 H 01/09/17 18:45 Blood Type A POSITIVE 01/08/17 10:37 Antibody Screen Negative 01/08/17 10:37 DELORIS Antibody Screen Negative 11/24/16 11:20 Crossmatch See Detail 01/08/17 10:37
[2017-01-16] MEDS: TRANSDERM-SCOP TD SCH (15:57)
[2017-01-16] MEDS: APRESOLINE PO SCH ×2 (17:58→22:15)
[2017-01-16] MEDS ORDERED: INTRALIPID 20% 250 ML IV SCH (20:00)
[2017-01-16] MEDS ORDERED: TPN ADULT IV SCH (20:00)
[2017-01-16] MEDS: HEPARIN IV PRN (21:54)
[2017-01-17] MEDS: DUONEB *Not for PRN Use IH SCH ×4 (02:05→19:32)
[2017-01-17] MEDS: APRESOLINE PO SCH ×4 (06:00→21:35)
[2017-01-17 06:12] LABS: Albumin 1.3 g/dL (3.9-5); Calcium 8.6 mg/dL (8.4-10.2)
[2017-01-17] MEDS: HumuLIN R SUB-Q SCH ×4 (07:44→18:48)
[2017-01-17] MEDS: LOPRESSOR PO SCH ×5 (07:45→18:48)
[2017-01-17] MEDS: REGLAN IV SCH ×3 (07:46→21:32)
--- NOTE | 2017-01-17 08:46 | Progress Note ---
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 * Her tachycardia seems to have improved. * Tolerating TPN well at this time. Shall monitor her electrolytes * monitor for renal recovery * Rate control per cardiology * Dose medications for renal function * Avoid potential nephrotoxins * Her urine output seems to be improving. She is clinically however still volume overloaded. Continue maintenance dialysis for now Subjective Date of service: 01/17/17 Principal diagnosis: Acute resp failure on MVS; S/P Acute CVA; Acute Encephalopathy; JUANITA Interval history: Patient remains on the ventilator. She had an episode of vomiting earlier. Currently on 60% FiO2. Off pressors. TPN infusing. Uneventful hemodialysis yesterday Objective - Vital Signs Vital signs: Vital Signs - 12hr 01/16/17 01/16/17 01/16/17 20:45 21:00 21:15 Temperature Pulse Rate 120 H 123 H 120 H Pulse Rate [ Anterior Bilateral Throughout] Respiratory 29 H Rate Respiratory Rate [Anterior Bilateral Throughout] Blood Pressure 81/60 94/62 95/59 O2 Sat by Pulse 100 Oximetry O2 Sat by Pulse Oximetry [ Anterior Bilateral Throughout] O2 Sat by Pulse Oximetry [ Assessment] 01/16/17 01/16/17 01/16/17 21:30 21:57 22:00 Temperature 98.9 F Pulse Rate 114 H 120 H 111 H Pulse Rate [ Anterior Bilateral Throughout] Respiratory 28 H 25 H Rate Respiratory Rate [Anterior Bilateral Throughout] Blood Pressure 120/69 96/51 107/62 O2 Sat by Pulse 100 Oximetry O2 Sat by Pulse 100 Oximetry [ Anterior Bilateral Throughout] O2 Sat by Pulse Oximetry [ Assessment] 01/16/17 01/16/17 01/17/17 22:11 23:00 00:00 Temperature 98.8 F Pulse Rate 111 H 107 H 107 H Pulse Rate [ Anterior Bilateral Throughout] Respiratory 24 22 21 Rate Respiratory Rate [Anterior Bilateral Throughout] Blood Pressure 107/62 98/65 88/59 O2 Sat by Pulse 100 100 99 Oximetry O2 Sat by Pulse Oximetry [ Anterior Bilateral Throughout] O2 Sat by Pulse Oximetry [ Assessment] 01/17/17 01/17/17 01/17/17 00:22 01:00 02:00 Temperature Pulse Rate 85 103 H 106 H Pulse Rate [ Anterior Bilateral Throughout] Respiratory 26 H 26 H Rate Respiratory Rate [Anterior Bilateral Throughout] Blood Pressure 130/81 111/65 111/63 O2 Sat by Pulse 100 100 94 Oximetry O2 Sat by Pulse Oximetry [ Anterior Bilateral Throughout] O2 Sat by Pulse Oximetry [ Assessment] 01/17/17 01/17/17 01/17/17 02:06 02:16 03:00 Temperature Pulse Rate 108 H Pulse Rate [ 106 H 108 H Anterior Bilateral Throughout] Respiratory 19 Rate Respiratory 24 24 Rate [Anterior Bilateral Throughout] Blood Pressure 125/73 O2 Sat by Pulse 100 Oximetry O2 Sat by Pulse Oximetry [ Anterior Bilateral Throughout] O2 Sat by Pulse Oximetry [ Assessment] 01/17/17 01/17/17 01/17/17 03:52 04:00 04:36 Temperature 98.9 F Pulse Rate 108 H 109 H Pulse Rate [ Anterior Bilateral Throughout] Respiratory 21 Rate Respiratory Rate [Anterior Bilateral Throughout] Blood Pressure 127/71 114/76 O2 Sat by Pulse 100 100 Oximetry O2 Sat by Pulse Oximetry [ Anterior Bilateral Throughout] O2 Sat by Pulse Oximetry [ Assessment] 01/17/17 01/17/17 01/17/17 04:38 05:00 06:00 Temperature Pulse Rate 112 H 109 H Pulse Rate [ Anterior Bilateral Throughout] Respiratory 13 22 Rate Respiratory Rate [Anterior Bilateral Throughout] Blood Pressure 126/73 112/67 O2 Sat by Pulse 100 99 Oximetry O2 Sat by Pulse Oximetry [ Anterior Bilateral Throughout] O2 Sat by Pulse 100 Oximetry [ Assessment] 01/17/17 01/17/17 01/17/17 07:00 07:45 07:47 Temperature Pulse Rate 108 H 112 H 112 H Pulse Rate [ Anterior Bilateral Throughout] Respiratory 22 Rate Respiratory Rate [Anterior Bilateral Throughout] Blood Pressure 121/72 121/69 124/77 O2 Sat by Pulse 100 Oximetry O2 Sat by Pulse Oximetry [ Anterior Bilateral Throughout] O2 Sat by Pulse Oximetry [ Assessment] 01/17/17 01/17/17 01/17/17 08:00 08:16 08:19 Temperature 98.4 F Pulse Rate 95 H Pulse Rate [ 94 H Anterior Bilateral Throughout] Respiratory Rate Respiratory 18 Rate [Anterior Bilateral Throughout] Blood Pressure 124/73 O2 Sat by Pulse 100 Oximetry O2 Sat by Pulse Oximetry [ Anterior Bilateral Throughout] O2 Sat by Pulse Oximetry [ Assessment] 01/17/17 08:34 Temperature Pulse Rate Pulse Rate [ 96 H Anterior Bilateral Throughout] Respiratory Rate Respiratory 20 Rate [Anterior Bilateral Throughout] Blood Pressure O2 Sat by Pulse Oximetry O2 Sat by Pulse Oximetry [ Anterior Bilateral Throughout] O2 Sat by Pulse Oximetry [ Assessment] - General Appearance General appearance: well-developed, well-nourished, appears stated age, intubated EENT: PERRL, mucous membranes moist Neck: no JVD, no thyromegaly, no carotid bruit, other (tracheostomy tube in place. Connected to the ventilator. Left IJ PermCath in place) Respiratory: Present: Ronchi (bilateral scattered rhonchi) Cardiology: regular, normal heart rate, S1S2, no murmurs Gastrointestinal: normal, normoactive bowel sounds, other (collection bag noted over her old PEG tube site) Integumentary: other (1+ edema) - Lab 01/15/17 12:45 01/17/17 05:30 Most recent lab results ABG pH 7.450 pH Units (7.350-7.450) 12/05/16 Unknown ABG pCO2 29.6 mm Hg 12/05/16 Unknown ABG pO2 75.2 mm Hg (80.0-90.0) L 12/05/16 Unknown ABG HCO3 20.1 mmol/L (20.0-26.0) 12/05/16 Unknown ABG O2 Saturation 96.8 % (95.0-99.0) 12/05/16 Unknown Calcium 8.6 mg/dL (8.4-10.2) 01/17/17 05:30 Phosphorus 3.60 mg/dL (2.5-4.5) D 01/17/17 05:30 Magnesium 1.90 mg/dL (1.7-2.3) 01/17/17 05:30 Urine Creatinine 19.7 mg/dL (0.1-20.0) 11/12/16 10:18 Urine Sodium 36 mEq/L 09/16/16 19:19 Urine Total Protein 16 mg/dL (5-11.8) H 09/16/16 19:19
[2017-01-17] MEDS: PROTONIX FEEDTUBE SCH (10:21)
[2017-01-17] MEDS: ROBINUL PO SCH ×2 (10:21→21:32)
[2017-01-17] MEDS: HEPARIN SUB-Q SCH ×2 (10:22→21:32)
[2017-01-17] MEDS: CORDARONE PO SCH ×2 (10:22→21:32)
[2017-01-17] MEDS: NORVASC PO SCH (10:23)
[2017-01-17] MEDS: DAKIN'S HALF STRENGTH TP SCH ×2 (10:23→21:20)
[2017-01-17] MEDS: MERREM IV SCH (11:48)
[2017-01-17] MEDS: NACL 0.9% IV SCH (11:48)
--- NOTE | 2017-01-17 11:56 | Progress Note ---
Assessment and Plan Assessment: 1) Recurrent SIRS: unclear source, better. Likely due to -infected sacral decubitus +/- VAP 2) History of Peritonitis: from gastric perforation from dislodged PEG with significant ascites -S/P exlap, repair of gastric perforation with wedge gastrectomy, abdominal washout, drain placement on 10/05. 3) History of Candidemia: -Blood cultures positive for Silvia albicans on 09/23 and 09/25 -Blood cultures negative on 09/30 -PICC line changed on 10/03 -Source ? gastric perf (PEG placed on 09/20) +/- TPN +/- central lines -TTE 10/07 no vegetations -PICC exchanged on 10/03 -fully treated with micafungin for 14 days last day 10/13 4) History CA-UTI s/p gutierrez exchanged 5) Diarrhea - ? etiology ? antibiotic-induced, not better. 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 from GI bleed 13) Recent abdominal wall abscess at surgical site-treated 14 ) Recent Enterococcal bacteremia from PICC line infection. 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 no cultures obtained 16) Presumed VAP: sputum + MDR Pseudomonas / Proteus Plan: -continue meropenem day 9 (if she has sacral osteo will do 4 weeks) -f/u pleural effusion cultures Thank you Dr Hodges for your consultation, will follow up with you. Pauline Carias MD Infectious Diseases Specialist [facility] M [phone] O [phone] Subjective Date of service: 01/17/17 Principal diagnosis: Acute resp failure on MVS; S/P Acute CVA; Acute Encephalopathy; JUANITA Interval history: Interval history: remains on the vent via trach no fever, off pressors, + TPN, underwent thoracentesis Microbiology: Blood cultures: 09/13 neg 8/ Silvia albicans / Silvia / neg 10/07 neg 11/05 neg 11/07 ngtd 11/22 E faecalis 1 of 4 bottles 11/25 neg 12/27 neg 01/09 ngtd Urine cultures: 09/10 neg 09/13 neg 8/ 10-100K mixed species 10/07 neg 11/05 VRE 11/07 mixed bacteria Respiratory cultures: 09/07 neg 09/13 neg 09/23 neg 11/07 MDR Pseudomonas 10 tracheal + VRE 01/09 Pseudomonas x 3 and Proteues Pleural effusion: ngtd Wound cultures: 10/17 abd wall wound purulence + Pseudomonas MDR Stool cultures: cath tip 11/07 + BEHAVIORIST Current Antimicrobials: meropenem 01/08 Previous Antimicrobials: Zosyn 10/07 Vancomycin PO 10/01 Metronidazole 09/25 Micafungin 09/27-10/13 Meropenem 10/10 Vanco 10/17 zosyn 10/21 Cefepime 11/10 vancomyin 11/07 fluconazole 10/19 cefepime 10/29levaquin 11/05 vanco 11/23 Objective - Exam Narrative Exam: General appearance: alert non communicative, on the vent via trach in mild resp distress, no following commands Eyes: anicteric sclera, moist conjunctivae; PERRLA HENT: Atraumatic; oropharynx limited; Normal external ears. +NGT with greenish secretion Neck: +trach in place; supple, no thyromegaly or lymphadenopathy Lungs: brit coarse BS CV: rrr Abdomen: Soft, non-tender, +old PEG site no drainage. +iliostomy. Right sided Surgical site x 2 with ostomy bag draining small amount yellowish secretion Extremities: +peripheral edema Skin: sacral area wounds - per wound care STAGE 4 PRESSURE INJURY TO SACRAL MEASURES 7.5X6X2.5, WITH UNDERMINING FROM @9-1 OCLOCK-2.8CM-ULCER CLEANED WITH WOUND FASHION CONSULTANT SELLING-ULCER Psych: somnolent . Neuro: alert non verbal on the vent. Lines: PICC / gutierrez - Constitutional Vitals: Vital Signs Temp Pulse Resp BP Pulse Ox 98.4 F 98 H 18 110/66 100 01/17/17 08:00 01/17/17 10:23 01/17/17 10:00 01/17/17 10:23 01/17/17 10:00 Temperature -Last 24 Hours Temperature 98.4 F Temperature 98.9 F Temperature 98.8 F Temperature 98.9 F Temperature 98.9 F Temperature 98.8 F Temperature 98.8 F Temperature 100.0 F - Labs CBC & Chem 7: 01/15/17 12:45 01/17/17 05:30 Labs: Abnormal lab results 01/16/17 01/16/17 01/16/17 Range/Units 11:42 12:32 17:52 POC ABG pH 7.499 H (7.35-7.45) POC ABG pCO2 30.9 L (35-45) POC ABG pO2 51 L (80-105) Sodium (137-145) mmol/L Chloride (98-107) mmol/L BUN (7-17) mg/dL Creatinine (0.7-1.2) mg/dL Glucose (65-100) mg/dL POC Glucose 133 H 130 H (70-105) Alkaline Phosphatase (35-129) units/L Albumin (3.9-5) g/dL 01/16/17 01/17/17 01/17/17 Range/Units 23:57 05:30 05:46 POC ABG pH (7.35-7.45) POC ABG pCO2 (35-45) POC ABG pO2 (80-105) Sodium 134 L (137-145) mmol/L Chloride 95.8 L (98-107) mmol/L BUN 66 H (7-17) mg/dL Creatinine 1.3 H (0.7-1.2) mg/dL Glucose 138 H (65-100) mg/dL POC Glucose 143 H 147 H (70-105) Alkaline Phosphatase 254 H (35-129) units/L Albumin 1.3 L (3.9-5) g/dL
--- NOTE | 2017-01-17 16:33 | Progress Note ---
Assessment and Plan Patient is 46-year-old woman with a history of hypertension, diabetes mellitus, asthma, hyperlipidemia, chronic kidney disease and anxiety, who was brought in by family because she couldn't get her words out, her face was also twisted, she was admitted for acute CVA and accelerated hypertension, she had a hx of poor adherence with her medications, and uncontrolled htn. Patient's SBP on admission was noted be greater than 260. TPA was started but this it was discontinued after 5 minutes because her blood pressure became uncontrolled. The TPA was not initiated again because the patient was outside the TPA window. Patient has had a prolonged hospital stay complicated with recurrent severe sepsis. Patient with most recent event also status post cardiac arrest on , with CPR and ROSC. Acute on chronic Hypoxemic Respiratory Failure ( not tolerating spontaneous breathing trials) Sepsis -recurrent s/p tracheostomy Hypertension Atrial Fibrillation with RVR Acute encephalopathy s/p CVA Oropharyngeal dysphagia Enterococcal bacteremia Sacral Decubitus Ulcer- unstageable s/p debridement Anemia Obesity JUANITA now on hemodialysis Enteric Fistula - VAP bundle addressed -CXR prn, s/p thoracentesis - continue NGT to LIS -Start promotility agent--reglan and erythromycin - continue wound care per WCT - Vasopressor if MAP falls < 65mmHg - keep on with daily PSV trials and / or T-piece as tolerated - continue TPN administration (continue TPN; NPO except for meds) - continue airway clearance and secretion management - continue to wean FiO2 for sats > 94% - continue antihypertensives and monitor hemodynamics closely - continue HD/UF per nephrology - continue to follow electrolytes and correct as necessary - continue GI & VTE prophylaxis -per Cardiology--failed cardioversion, not a candidate fro full anticoagulation. No further recommendations for management of atrial fibrillation. Rate control as tolerated by hemodynamics For further interventions per surgical service, as it pertains to the replacement of the PEG tube-Surgical service states that the patietn is too high risk to attempt PEG placement. 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 - Patient Problems (1) Acute respiratory failure with hypoxia Current Visit: Yes Status: Acute (2) Acute blood loss anemia Current Visit: Yes Status: Resolved (3) Acute CVA (cerebrovascular accident) Current Visit: Yes Status: Acute (4) Chronic renal insufficiency Current Visit: Yes Status: Acute (5) Uncontrolled hypertension Current Visit: Yes Status: Acute (6) Leukocytosis (leucocytosis) Current Visit: Yes Status: Acute Qualifiers: Leukocytosis type: leukemoid reaction Qualified Code(s): D72.823 - Leukemoid reaction (7) Dislodged gastrostomy tube Current Visit: Yes Status: Acute (8) Fungemia Current Visit: Yes Status: Resolved (9) Cardiopulmonary arrest with successful resuscitation Current Visit: Yes Status: Acute Subjective Date of service: 01/17/17 Principal diagnosis: Acute resp failure on MVS; S/P Acute CVA; Acute Encephalopathy; JUANITA Interval history: Patient is seen today for: Acute resp failure on MVS; S/P Acute CVA; Acute Encephalopathy; JUANITA Seen and examined at bedside; 24hour events reviewed; nursing and respiratory care staff consulted; no adverse overnight events reported to me; she remains critically ill , RT held weaning today, patient has had recurrent vomiting with episodes of desaturations Per RN on going vomiting. Vitals, labs, medications, chart reviewed. Discussed on interdisciplinary rounds Objective - Exam Narrative Exam: GEN: Ill appearing, s/p tracheostomy to MVS, staring into space, not tracking either NECK: SUPPLE, trach in place, ngt in place CVS: regular currently NORMAL S1S2 LUNGS/CHEST: NORMAL CHEST EXPANSION B, GOOD AIR ENTRY B ABD: SOFT, no grimise on abdominal palpation, ostomy bags in different locations AND STILL DRAINING, GBS, NO REBOUND OR GUARDING, peg tube in place EXT/SKIN: NO SIGNIFICANT EDEMA BUT WITH UNSTAGEABLE SACRAL DECUB, wound vac in place MSK: +spontaneous non purposeful movement NEURO: on a ventilator and unresponsive despite being off sedation PSY: Comatose, Vital Signs - 12hr 01/17/17 01/17/17 01/17/17 04:36 04:38 05:00 Temperature Pulse Rate 109 H 112 H Pulse Rate [ Anterior Bilateral Throughout] Respiratory 13 Rate Respiratory Rate [Anterior Bilateral Throughout] Respiratory Rate [ Generalized] Blood Pressure 114/76 126/73 O2 Sat by Pulse 100 100 Oximetry O2 Sat by Pulse 100 Oximetry [ Assessment] 01/17/17 01/17/17 01/17/17 06:00 07:00 07:45 Temperature Pulse Rate 109 H 108 H 112 H Pulse Rate [ Anterior Bilateral Throughout] Respiratory 22 22 Rate Respiratory Rate [Anterior Bilateral Throughout] Respiratory Rate [ Generalized] Blood Pressure 112/67 121/72 121/69 O2 Sat by Pulse 99 100 Oximetry O2 Sat by Pulse Oximetry [ Assessment] 01/17/17 01/17/17 01/17/17 07:47 08:00 08:16 Temperature 98.4 F Pulse Rate 112 H 110 H 95 H Pulse Rate [ Anterior Bilateral Throughout] Respiratory 24 Rate Respiratory Rate [Anterior Bilateral Throughout] Respiratory Rate [ Generalized] Blood Pressure 124/77 114/69 124/73 O2 Sat by Pulse 100 100 Oximetry O2 Sat by Pulse Oximetry [ Assessment] 01/17/17 01/17/17 01/17/17 08:19 08:34 09:00 Temperature Pulse Rate 94 H Pulse Rate [ 94 H 96 H Anterior Bilateral Throughout] Respiratory 14 Rate Respiratory 18 20 Rate [Anterior Bilateral Throughout] Respiratory Rate [ Generalized] Blood Pressure 112/76 O2 Sat by Pulse 100 Oximetry O2 Sat by Pulse Oximetry [ Assessment] 01/17/17 01/17/17 01/17/17 10:00 10:23 11:00 Temperature Pulse Rate 96 H 98 H 101 H Pulse Rate [ Anterior Bilateral Throughout] Respiratory 23 26 H Rate Respiratory Rate [Anterior Bilateral Throughout] Respiratory 18 Rate [ Generalized] Blood Pressure 112/68 110/66 120/72 O2 Sat by Pulse 100 100 Oximetry O2 Sat by Pulse Oximetry [ Assessment] 01/17/17 01/17/17 01/17/17 12:00 12:03 13:00 Temperature 988 F H Pulse Rate 100 H 98 H 100 H Pulse Rate [ Anterior Bilateral Throughout] Respiratory 25 H 22 Rate Respiratory Rate [Anterior Bilateral Throughout] Respiratory Rate [ Generalized] Blood Pressure 112/66 112/66 115/67 O2 Sat by Pulse 100 100 100 Oximetry O2 Sat by Pulse Oximetry [ Assessment] 01/17/17 01/17/17 01/17/17 13:42 14:00 14:04 Temperature Pulse Rate 100 H 101 H Pulse Rate [ 99 H Anterior Bilateral Throughout] Respiratory 25 H Rate Respiratory 22 Rate [Anterior Bilateral Throughout] Respiratory Rate [ Generalized] Blood Pressure 105/63 113/66 O2 Sat by Pulse 100 Oximetry O2 Sat by Pulse Oximetry [ Assessment] 01/17/17 01/17/17 01/17/17 14:24 15:00 16:00 Temperature 98.8 F Pulse Rate 102 H Pulse Rate [ 103 H Anterior Bilateral Throughout] Respiratory 22 Rate Respiratory Rate [Anterior Bilateral Throughout] Respiratory Rate [ Generalized] Blood Pressure 105/58 O2 Sat by Pulse 100 Oximetry O2 Sat by Pulse Oximetry [ Assessment] 01/17/17 16:30 Temperature Pulse Rate 103 H Pulse Rate [ Anterior Bilateral Throughout] Respiratory Rate Respiratory Rate [Anterior Bilateral Throughout] Respiratory Rate [ Generalized] Blood Pressure 104/61 O2 Sat by Pulse 100 Oximetry O2 Sat by Pulse 100 Oximetry [ Assessment] Constitutional: appears uncomfortable, other (not tracking) Eyes: non-icteric, other (tracheostomy tube in midline of neck) ENT: oropharynx moist, oropharyngeal exudate pre Neck: supple, no lymphadenopathy, no JVD, other (no thyromegaly) Effort: mildly labored Ascultation: Bilateral: clear, diminished breath sounds (bases), rales, rhonchi (and referred upper airway sounds) Percussion: Bilateral: not dull, dull (bases) Cardiovascular: regular rate and rhythm, other (no rubs / murmurs) Gastrointestinal: hypoactive bowel sounds, soft, non-tender, non-distended, other (RLQ & LUQ stomas with colostomy bags) Integumentary: decubitus ulcer (sacral; stage 4 s/p surgical debridement), other (no rash; no cellulitis; poor turgor) Extremities: no cyanosis, pulses normal, no ischemia or petechiae, edema (1+ bilaterally) Neurologic: pupils equal and round, unable to assess, other (encephalopathic) Psychiatric: other (unable to assess) CBC and BMP: 01/15/17 12:45 01/18/17 05:15 ABG, PT/INR, D-dimer: ABG POC ABG pH 7.499 (7.35-7.45) H 01/16/17 12:32 ABG pH 7.450 pH Units (7.350-7.450) 12/05/16 Unknown POC ABG pCO2 30.9 (35-45) L 01/16/17 12:32 ABG pCO2 29.6 mm Hg 12/05/16 Unknown POC ABG pO2 51 (80-105) L 01/16/17 12:32 ABG pO2 75.2 mm Hg (80.0-90.0) L 12/05/16 Unknown POC ABG HCO3 24.0 01/16/17 12:32 POC ABG Total CO2 25 01/16/17 12:32 POC ABG O2 Sat 89 01/16/17 12:32 ABG O2 Saturation 96.8 % (95.0-99.0) 12/05/16 Unknown PT/INR, D-dimer PT 15.4 Sec. (12.2-14.9) H 01/13/17 15:50 INR 1.16 (0.87-1.13) H 01/13/17 15:50 Abnormal lab findings: Abnormal Labs 09/03/16 09/03/16 09/03/16 00:03 00:10 00:10 WBC 13.9 H RBC 5.95 H Hgb Hct 44.0 H MCV 74 L MCH 22 L MCHC RDW 17.5 H Plt Count Lymph % (Auto) [place] % (Auto) Lymph # [place] # Baso # Seg Neutrophils % Seg Neuts % (Manual) Lymphocytes % (Manual) 54.0 H Monocytes % (Manual) Eosinophils % (Manual) Basophils % (Manual) Nucleated RBC % Seg Neutrophils # Seg Neutrophils # Man Lymphocytes # (Manual) 7.5 H Monocytes # (Manual) Eosinophils # (Manual) Basophils # (Manual) PT INR Fibrinogen dRVVT Confirm Interp Factor V Activity POC ABG pH POC ABG pCO2 POC ABG pO2 ABG pO2 ABG HCO3 ABG Base Excess ABG Hemoglobin Oxyhemoglobin Sodium Potassium 2.8 L* Chloride Carbon Dioxide 21 L BUN Creatinine 1.7 H Glucose 159 H POC Glucose 177 H Lactic Acid Calcium Phosphorus Magnesium Direct Bilirubin AST ALT Alkaline Phosphatase Lactate Dehydrogenase Troponin T C-Reactive Protein Total Protein Albumin Prealbumin Triglycerides Cholesterol LDL Cholesterol Direct HDL Cholesterol Urine pH Urine WBC (Auto) Urine Creatinine Urine Total Protein Fluid Total Protein Vancomycin Trough Rheumatoid Factor Complement C4 Miscellaneous Test Crossmatch 09/03/16 09/03/16 09/03/16 12:12 15:07 16:20 WBC RBC Hgb Hct MCV MCH MCHC RDW Plt Count Lymph % (Auto) [place] % (Auto) Lymph # [place] # Baso # Seg Neutrophils % Seg Neuts % (Manual) Lymphocytes % (Manual) Monocytes % (Manual) Eosinophils % (Manual) Basophils % (Manual) Nucleated RBC % Seg Neutrophils # Seg Neutrophils # Man Lymphocytes # (Manual) Monocytes # (Manual) Eosinophils # (Manual) Basophils # (Manual) PT INR Fibrinogen dRVVT Confirm Interp Factor V Activity POC ABG pH 7.452 H POC ABG pCO2 POC ABG pO2 ABG pO2 ABG HCO3 ABG Base Excess ABG Hemoglobin Oxyhemoglobin Sodium Potassium Chloride Carbon Dioxide BUN Creatinine Glucose POC Glucose 178 H Lactic Acid Calcium Phosphorus 2.20 L Magnesium 1.60 L Direct Bilirubin AST ALT Alkaline Phosphatase Lactate Dehydrogenase Troponin T C-Reactive Protein Total Protein Albumin Prealbumin Triglycerides Cholesterol LDL Cholesterol Direct HDL Cholesterol Urine pH Urine WBC (Auto) Urine Creatinine Urine Total Protein Fluid Total Protein Vancomycin Trough Rheumatoid Factor Complement C4 Miscellaneous Test Crossmatch 09/03/16 09/03/16 09/03/16 17:57 17:58 23:50 WBC RBC Hgb Hct MCV MCH MCHC RDW Plt Count Lymph % (Auto) [place] % (Auto) Lymph # [place] # Baso # Seg Neutrophils % Seg Neuts % (Manual) Lymphocytes % (Manual) Monocytes % (Manual) Eosinophils % (Manual) Basophils % (Manual) Nucleated RBC % Seg Neutrophils # Seg Neutrophils # Man Lymphocytes # (Manual) Monocytes # (Manual) Eosinophils # (Manual) Basophils # (Manual) PT INR Fibrinogen dRVVT Confirm Interp Factor V Activity POC ABG pH POC ABG pCO2 POC ABG pO2 ABG pO2 ABG HCO3 ABG Base Excess ABG Hemoglobin Oxyhemoglobin Sodium Potassium Chloride Carbon Dioxide BUN Creatinine Glucose POC Glucose 162 H 145 H Lactic Acid Calcium Phosphorus 2.30 L Magnesium Direct Bilirubin AST ALT Alkaline Phosphatase Lactate Dehydrogenase Troponin T C-Reactive Protein Total Protein Albumin Prealbumin Triglycerides Cholesterol LDL Cholesterol Direct HDL Cholesterol Urine pH Urine WBC (Auto) Urine Creatinine Urine Total Protein Fluid Total Protein Vancomycin Trough Rheumatoid Factor Complement C4 Miscellaneous Test Crossmatch 09/04/16 09/04/16 09/04/16 03:31 03:31 05:42 WBC RBC Hgb 9.7 L D Hct MCV 72 L MCH 23 L MCHC RDW 17.5 H Plt Count Lymph % (Auto) 11.1 L [place] % (Auto) Lymph # [place] # Baso # Seg Neutrophils % 84.3 H Seg Neuts % (Manual) Lymphocytes % (Manual) Monocytes % (Manual) Eosinophils % (Manual) Basophils % (Manual) Nucleated RBC % Seg Neutrophils # 8.9 H Seg Neutrophils # Man Lymphocytes # (Manual) Monocytes # (Manual) Eosinophils # (Manual) Basophils # (Manual) PT INR Fibrinogen dRVVT Confirm Interp Factor V Activity POC ABG pH POC ABG pCO2 POC ABG pO2 ABG pO2 ABG HCO3 ABG Base Excess ABG Hemoglobin Oxyhemoglobin Sodium 135 L Potassium 2.9 L* Chloride 97.2 L Carbon Dioxide 19 L BUN Creatinine 1.7 H Glucose 170 H POC Glucose 152 H Lactic Acid Calcium Phosphorus Magnesium Direct Bilirubin AST ALT Alkaline Phosphatase Lactate Dehydrogenase Troponin T C-Reactive Protein Total Protein Albumin Prealbumin Triglycerides 160 H Cholesterol LDL Cholesterol Direct HDL Cholesterol 31 L Urine pH Urine WBC (Auto) Urine Creatinine Urine Total Protein Fluid Total Protein Vancomycin Trough Rheumatoid Factor Complement C4 Miscellaneous Test Crossmatch 09/04/16 09/04/16 09/04/16 11:34 17:46 23:29 WBC RBC Hgb Hct MCV MCH MCHC RDW Plt Count Lymph % (Auto) [place] % (Auto) Lymph # [place] # Baso # Seg Neutrophils % Seg Neuts % (Manual) Lymphocytes % (Manual) Monocytes % (Manual) Eosinophils % (Manual) Basophils % (Manual) Nucleated RBC % Seg Neutrophils # Seg Neutrophils # Man Lymphocytes # (Manual) Monocytes # (Manual) Eosinophils # (Manual) Basophils # (Manual) PT INR Fibrinogen dRVVT Confirm Interp Factor V Activity POC ABG pH POC ABG pCO2 POC ABG pO2 ABG pO2 ABG HCO3 ABG Base Excess ABG Hemoglobin Oxyhemoglobin Sodium Potassium Chloride Carbon Dioxide BUN Creatinine Glucose POC Glucose 165 H 210 H 139 H Lactic Acid Calcium Phosphorus Magnesium Direct Bilirubin AST ALT Alkaline Phosphatase Lactate Dehydrogenase Troponin T C-Reactive Protein Total Protein Albumin Prealbumin Triglycerides Cholesterol LDL Cholesterol Direct HDL Cholesterol Urine pH Urine WBC (Auto) Urine Creatinine Urine Total Protein Fluid Total Protein Vancomycin Trough Rheumatoid Factor Complement C4 Miscellaneous Test Crossmatch 09/05/16 09/05/16 09/05/16 04:05 04:05 05:38 WBC RBC Hgb Hct MCV 76 L D MCH 23 L MCHC RDW 17.8 H Plt Count Lymph % (Auto) [place] % (Auto) Lymph # [place] # Baso # Seg Neutrophils % Seg Neuts % (Manual) Lymphocytes % (Manual) Monocytes % (Manual) Eosinophils % (Manual) Basophils % (Manual) Nucleated RBC % Seg Neutrophils # Seg Neutrophils # Man Lymphocytes # (Manual) Monocytes # (Manual) Eosinophils # (Manual) Basophils # (Manual) PT INR Fibrinogen dRVVT Confirm Interp Factor V Activity POC ABG pH POC ABG pCO2 POC ABG pO2 ABG pO2 ABG HCO3 ABG Base Excess ABG Hemoglobin Oxyhemoglobin Sodium 134 L Potassium Chloride Carbon Dioxide 18 L BUN Creatinine 1.8 H Glucose 192 H POC Glucose 175 H Lactic Acid Calcium Phosphorus Magnesium Direct Bilirubin AST ALT Alkaline Phosphatase Lactate Dehydrogenase Troponin T C-Reactive Protein Total Protein Albumin Prealbumin Triglycerides Cholesterol LDL Cholesterol Direct HDL Cholesterol Urine pH Urine WBC (Auto) Urine Creatinine Urine Total Protein Fluid Total Protein Vancomycin Trough Rheumatoid Factor Complement C4 Miscellaneous Test Crossmatch 09/05/16 09/05/16 09/05/16 11:38 17:48 23:22 WBC RBC Hgb Hct MCV MCH MCHC RDW Plt Count Lymph % (Auto) [place] % (Auto) Lymph # [place] # Baso # Seg Neutrophils % Seg Neuts % (Manual) Lymphocytes % (Manual) Monocytes % (Manual) Eosinophils % (Manual) Basophils % (Manual) Nucleated RBC % Seg Neutrophils # Seg Neutrophils # Man Lymphocytes # (Manual) Monocytes # (Manual) Eosinophils # (Manual) Basophils # (Manual) PT INR Fibrinogen dRVVT Confirm Interp Factor V Activity POC ABG pH POC ABG pCO2 POC ABG pO2 ABG pO2 ABG HCO3 ABG Base Excess ABG Hemoglobin Oxyhemoglobin Sodium Potassium Chloride Carbon Dioxide BUN Creatinine Glucose POC Glucose 164 H 186 H 195 H Lactic Acid Calcium Phosphorus Magnesium Direct Bilirubin AST ALT Alkaline Phosphatase Lactate Dehydrogenase Troponin T C-Reactive Protein Total Protein Albumin Prealbumin Triglycerides Cholesterol LDL Cholesterol Direct HDL Cholesterol Urine pH Urine WBC (Auto) Urine Creatinine Urine Total Protein Fluid Total Protein Vancomycin Trough Rheumatoid Factor Complement C4 Miscellaneous Test Crossmatch 09/06/16 09/06/16 09/06/16 04:12 05:59 07:32 WBC RBC Hgb Hct MCV MCH MCHC RDW Plt Count Lymph % (Auto) [place] % (Auto) Lymph # [place] # Baso # Seg Neutrophils % Seg Neuts % (Manual) Lymphocytes % (Manual) Monocytes % (Manual) Eosinophils % (Manual) Basophils % (Manual) Nucleated RBC % Seg Neutrophils # Seg Neutrophils # Man Lymphocytes # (Manual) Monocytes # (Manual) Eosinophils # (Manual) Basophils # (Manual) PT INR Fibrinogen dRVVT Confirm Interp Factor V Activity POC ABG pH 7.514 H POC ABG pCO2 29.1 L POC ABG pO2 72 L ABG pO2 ABG HCO3 ABG Base Excess ABG Hemoglobin Oxyhemoglobin Sodium 133 L Potassium 3.4 L Chloride 94.9 L Carbon Dioxide 19 L BUN 30 H Creatinine 2.1 H Glucose 139 H POC Glucose 146 H Lactic Acid Calcium Phosphorus Magnesium Direct Bilirubin AST ALT Alkaline Phosphatase Lactate Dehydrogenase Troponin T C-Reactive Protein Total Protein Albumin Prealbumin Triglycerides Cholesterol LDL Cholesterol Direct HDL Cholesterol Urine pH Urine WBC (Auto) Urine Creatinine Urine Total Protein Fluid Total Protein Vancomycin Trough Rheumatoid Factor Complement C4 Miscellaneous Test Crossmatch 09/06/16 09/06/16 09/06/16 11:57 17:58 19:02 WBC RBC Hgb Hct MCV MCH MCHC RDW Plt Count Lymph % (Auto) [place] % (Auto) Lymph # [place] # Baso # Seg Neutrophils % Seg Neuts % (Manual) Lymphocytes % (Manual) Monocytes % (Manual) Eosinophils % (Manual) Basophils % (Manual) Nucleated RBC % Seg Neutrophils # Seg Neutrophils # Man Lymphocytes # (Manual) Monocytes # (Manual) Eosinophils # (Manual) Basophils # (Manual) PT INR Fibrinogen dRVVT Confirm Interp Factor V Activity POC ABG pH 7.465 H POC ABG pCO2 32.0 L POC ABG pO2 ABG pO2 ABG HCO3 ABG Base Excess ABG Hemoglobin Oxyhemoglobin Sodium Potassium Chloride Carbon Dioxide BUN Creatinine Glucose POC Glucose 165 H 160 H Lactic Acid Calcium Phosphorus Magnesium Direct Bilirubin AST ALT Alkaline Phosphatase Lactate Dehydrogenase Troponin T C-Reactive Protein Total Protein Albumin Prealbumin Triglycerides Cholesterol LDL Cholesterol Direct HDL Cholesterol Urine pH Urine WBC (Auto) Urine Creatinine Urine Total Protein Fluid Total Protein Vancomycin Trough Rheumatoid Factor Complement C4 Miscellaneous Test Crossmatch 09/06/16 09/07/16 09/07/16 23:45 02:47 02:47 WBC RBC Hgb Hct MCV MCH MCHC RDW Plt Count Lymph % (Auto) [place] % (Auto) Lymph # [place] # Baso # Seg Neutrophils % Seg Neuts % (Manual) Lymphocytes % (Manual) Monocytes % (Manual) Eosinophils % (Manual) Basophils % (Manual) Nucleated RBC % Seg Neutrophils # Seg Neutrophils # Man Lymphocytes # (Manual) Monocytes # (Manual) Eosinophils # (Manual) Basophils # (Manual) PT INR Fibrinogen dRVVT Confirm Interp Factor V Activity POC ABG pH POC ABG pCO2 POC ABG pO2 ABG pO2 ABG HCO3 ABG Base Excess ABG Hemoglobin Oxyhemoglobin Sodium Potassium Chloride Carbon Dioxide BUN Creatinine Glucose POC Glucose 204 H Lactic Acid Calcium Phosphorus Magnesium Direct Bilirubin AST ALT Alkaline Phosphatase Lactate Dehydrogenase Troponin T C-Reactive Protein Total Protein Albumin Prealbumin Triglycerides Cholesterol LDL Cholesterol Direct HDL Cholesterol Urine pH Urine WBC (Auto) 68.0 H Urine Creatinine 106.1 H Urine Total Protein Fluid Total Protein Vancomycin Trough Rheumatoid Factor Complement C4 Miscellaneous Test Crossmatch 09/07/16 09/07/16 09/07/16 04:50 06:19 06:39 WBC RBC Hgb Hct MCV MCH MCHC RDW Plt Count Lymph % (Auto) [place] % (Auto) Lymph # [place] # Baso # Seg Neutrophils % Seg Neuts % (Manual) Lymphocytes % (Manual) Monocytes % (Manual) Eosinophils % (Manual) Basophils % (Manual) Nucleated RBC % Seg Neutrophils # Seg Neutrophils # Man Lymphocytes # (Manual) Monocytes # (Manual) Eosinophils # (Manual) Basophils # (Manual) PT INR Fibrinogen dRVVT Confirm Interp Factor V Activity POC ABG pH 7.457 H POC ABG pCO2 32.1 L POC ABG pO2 76 L ABG pO2 ABG HCO3 ABG Base Excess ABG Hemoglobin Oxyhemoglobin Sodium 132 L Potassium Chloride 94.7 L Carbon Dioxide BUN 53 H Creatinine 2.9 H Glucose 151 H POC Glucose 149 H Lactic Acid Calcium Phosphorus Magnesium Direct Bilirubin AST ALT Alkaline Phosphatase Lactate Dehydrogenase Troponin T C-Reactive Protein Total Protein Albumin Prealbumin Triglycerides Cholesterol LDL Cholesterol Direct HDL Cholesterol Urine pH Urine WBC (Auto) Urine Creatinine Urine Total Protein Fluid Total Protein Vancomycin Trough Rheumatoid Factor Complement C4 Miscellaneous Test Crossmatch 09/07/16 09/07/16 09/07/16 09:20 11:43 11:43 WBC 19.4 H RBC Hgb 8.3 L Hct 26.4 L D MCV 72 L D MCH 22 L MCHC RDW 17.9 H Plt Count Lymph % (Auto) 8.5 L [place] % (Auto) Lymph # [place] # 1.0 H Baso # Seg Neutrophils % 85.8 H Seg Neuts % (Manual) Lymphocytes % (Manual) Monocytes % (Manual) Eosinophils % (Manual) Basophils % (Manual) Nucleated RBC % Seg Neutrophils # 16.6 H Seg Neutrophils # Man Lymphocytes # (Manual) Monocytes # (Manual) Eosinophils # (Manual) Basophils # (Manual) PT INR Fibrinogen dRVVT Confirm Interp Factor V Activity POC ABG pH POC ABG pCO2 POC ABG pO2 ABG pO2 ABG HCO3 ABG Base Excess ABG Hemoglobin Oxyhemoglobin Sodium 134 L Potassium Chloride 97.2 L Carbon Dioxide 20 L BUN 58 H Creatinine 2.9 H Glucose 147 H POC Glucose Lactic Acid Calcium Phosphorus 2.40 L Magnesium 2.40 H Direct Bilirubin AST ALT Alkaline Phosphatase Lactate Dehydrogenase Troponin T C-Reactive Protein Total Protein 5.8 L Albumin 2.2 L Prealbumin Triglycerides Cholesterol LDL Cholesterol Direct HDL Cholesterol Urine pH Urine WBC (Auto) Urine Creatinine Urine Total Protein Fluid Total Protein Vancomycin Trough Rheumatoid Factor Complement C4 58 H Miscellaneous Test Crossmatch 09/07/16 09/07/16 09/07/16 11:50 16:00 17:31 WBC RBC Hgb Hct MCV MCH MCHC RDW Plt Count Lymph % (Auto) [place] % (Auto) Lymph # [place] # Baso # Seg Neutrophils % Seg Neuts % (Manual) Lymphocytes % (Manual) Monocytes % (Manual) Eosinophils % (Manual) Basophils % (Manual) Nucleated RBC % Seg Neutrophils # Seg Neutrophils # Man Lymphocytes # (Manual) Monocytes # (Manual) Eosinophils # (Manual) Basophils # (Manual) PT INR Fibrinogen dRVVT Confirm Interp Factor V Activity POC ABG pH POC ABG pCO2 POC ABG pO2 158 H ABG pO2 ABG HCO3 ABG Base Excess ABG Hemoglobin Oxyhemoglobin Sodium Potassium Chloride Carbon Dioxide BUN Creatinine Glucose POC Glucose 175 H Lactic Acid Calcium Phosphorus Magnesium Direct Bilirubin AST ALT Alkaline Phosphatase Lactate Dehydrogenase Troponin T C-Reactive Protein Total Protein Albumin Prealbumin Triglycerides Cholesterol LDL Cholesterol Direct HDL Cholesterol Urine pH Urine WBC (Auto) Urine Creatinine 66.3 H Urine Total Protein Fluid Total Protein Vancomycin Trough Rheumatoid Factor Complement C4 Miscellaneous Test Crossmatch 09/07/16 09/08/16 09/08/16 23:50 05:46 06:18 WBC 17.8 H RBC 3.58 L Hgb 8.1 L Hct 25.5 L MCV 71 L MCH 23 L MCHC RDW 18.4 H Plt Count Lymph % (Auto) [place] % (Auto) Lymph # [place] # Baso # Seg Neutrophils % Seg Neuts % (Manual) 92.0 H Lymphocytes % (Manual) 6.0 L Monocytes % (Manual) Eosinophils % (Manual) Basophils % (Manual) Nucleated RBC % Seg Neutrophils # Seg Neutrophils # Man 16.4 H Lymphocytes # (Manual) 1.1 L Monocytes # (Manual) Eosinophils # (Manual) Basophils # (Manual) PT INR Fibrinogen dRVVT Confirm Interp Factor V Activity POC ABG pH POC ABG pCO2 34.3 L POC ABG pO2 71 L ABG pO2 ABG HCO3 ABG Base Excess ABG Hemoglobin Oxyhemoglobin Sodium Potassium Chloride Carbon Dioxide BUN Creatinine Glucose POC Glucose 216 H Lactic Acid Calcium Phosphorus Magnesium Direct Bilirubin AST ALT Alkaline Phosphatase Lactate Dehydrogenase Troponin T C-Reactive Protein Total Protein Albumin Prealbumin Triglycerides Cholesterol LDL Cholesterol Direct HDL Cholesterol Urine pH Urine WBC (Auto) Urine Creatinine Urine Total Protein Fluid Total Protein Vancomycin Trough Rheumatoid Factor Complement C4 Miscellaneous Test Crossmatch 09/08/16 09/08/16 09/08/16 06:18 06:51 10:55 WBC RBC Hgb Hct MCV MCH MCHC RDW Plt Count Lymph % (Auto) [place] % (Auto) Lymph # [place] # Baso # Seg Neutrophils % Seg Neuts % (Manual) Lymphocytes % (Manual) Monocytes % (Manual) Eosinophils % (Manual) Basophils % (Manual) Nucleated RBC % Seg Neutrophils # Seg Neutrophils # Man Lymphocytes # (Manual) Monocytes # (Manual) Eosinophils # (Manual) Basophils # (Manual) PT INR Fibrinogen dRVVT Confirm Interp Factor V Activity POC ABG pH POC ABG pCO2 POC ABG pO2 ABG pO2 ABG HCO3 ABG Base Excess ABG Hemoglobin Oxyhemoglobin Sodium 133 L Potassium Chloride 96.9 L Carbon Dioxide 20 L BUN 63 H Creatinine 2.7 H Glucose 195 H POC Glucose 204 H 169 H Lactic Acid Calcium Phosphorus Magnesium Direct Bilirubin AST ALT Alkaline Phosphatase Lactate Dehydrogenase Troponin T C-Reactive Protein Total Protein Albumin Prealbumin Triglycerides Cholesterol LDL Cholesterol Direct HDL Cholesterol Urine pH Urine WBC (Auto) Urine Creatinine Urine Total Protein Fluid Total Protein Vancomycin Trough Rheumatoid Factor Complement C4 Miscellaneous Test Crossmatch 09/08/16 09/08/16 09/08/16 11:48 11:48 11:48 WBC RBC Hgb Hct MCV MCH MCHC RDW Plt Count Lymph % (Auto) [place] % (Auto) Lymph # [place] # Baso # Seg Neutrophils % Seg Neuts % (Manual) Lymphocytes % (Manual) Monocytes % (Manual) Eosinophils % (Manual) Basophils % (Manual) Nucleated RBC % Seg Neutrophils # Seg Neutrophils # Man Lymphocytes # (Manual) Monocytes # (Manual) Eosinophils # (Manual) Basophils # (Manual) PT INR Fibrinogen 750 H dRVVT Confirm Interp Factor V Activity POC ABG pH POC ABG pCO2 POC ABG pO2 ABG pO2 ABG HCO3 ABG Base Excess ABG Hemoglobin Oxyhemoglobin Sodium Potassium Chloride Carbon Dioxide BUN Creatinine Glucose POC Glucose Lactic Acid Calcium Phosphorus Magnesium Direct Bilirubin AST ALT Alkaline Phosphatase Lactate Dehydrogenase Troponin T C-Reactive Protein 15.70 H Total Protein Albumin Prealbumin Triglycerides Cholesterol LDL Cholesterol Direct HDL Cholesterol Urine pH Urine WBC (Auto) Urine Creatinine Urine Total Protein Fluid Total Protein Vancomycin Trough Rheumatoid Factor 24 H Complement C4 Miscellaneous Test Crossmatch 09/08/16 09/08/16 09/09/16 15:35 18:25 00:24 WBC RBC Hgb Hct MCV MCH MCHC RDW Plt Count Lymph % (Auto) [place] % (Auto) Lymph # [place] # Baso # Seg Neutrophils % Seg Neuts % (Manual) Lymphocytes % (Manual) Monocytes % (Manual) Eosinophils % (Manual) Basophils % (Manual) Nucleated RBC % Seg Neutrophils # Seg Neutrophils # Man Lymphocytes # (Manual) Monocytes # (Manual) Eosinophils # (Manual) Basophils # (Manual) PT INR Fibrinogen dRVVT Confirm Interp Factor V Activity 182 H POC ABG pH POC ABG pCO2 POC ABG pO2 ABG pO2 ABG HCO3 ABG Base Excess ABG Hemoglobin Oxyhemoglobin Sodium Potassium Chloride Carbon Dioxide BUN Creatinine Glucose POC Glucose 184 H 216 H Lactic Acid Calcium Phosphorus Magnesium Direct Bilirubin AST ALT Alkaline Phosphatase Lactate Dehydrogenase Troponin T C-Reactive Protein Total Protein Albumin Prealbumin Triglycerides Cholesterol LDL Cholesterol Direct HDL Cholesterol Urine pH Urine WBC (Auto) Urine Creatinine Urine Total Protein Fluid Total Protein Vancomycin Trough Rheumatoid Factor Complement C4 Miscellaneous Test Crossmatch 09/09/16 09/09/16 09/09/16 03:00 03:00 04:04 WBC 27.9 H RBC Hgb 8.7 L Hct 28.1 L MCV 72 L MCH 22 L MCHC RDW 18.4 H Plt Count 485 H Lymph % (Auto) [place] % (Auto) Lymph # [place] # Baso # Seg Neutrophils % Seg Neuts % (Manual) 77.0 H Lymphocytes % (Manual) 9.0 L Monocytes % (Manual) Eosinophils % (Manual) Basophils % (Manual) Nucleated RBC % Seg Neutrophils # Seg Neutrophils # Man 21.5 H Lymphocytes # (Manual) Monocytes # (Manual) 2.0 H Eosinophils # (Manual) Basophils # (Manual) PT INR Fibrinogen dRVVT Confirm Interp Factor V Activity POC ABG pH POC ABG pCO2 POC ABG pO2 121 H ABG pO2 ABG HCO3 ABG Base Excess ABG Hemoglobin Oxyhemoglobin Sodium 135 L Potassium Chloride 96.3 L Carbon Dioxide 21 L BUN 83 H Creatinine 3.0 H Glucose 135 H POC Glucose Lactic Acid Calcium Phosphorus Magnesium Direct Bilirubin AST ALT Alkaline Phosphatase Lactate Dehydrogenase Troponin T C-Reactive Protein Total Protein Albumin Prealbumin Triglycerides Cholesterol LDL Cholesterol Direct HDL Cholesterol Urine pH Urine WBC (Auto) Urine Creatinine Urine Total Protein Fluid Total Protein Vancomycin Trough Rheumatoid Factor Complement C4 Miscellaneous Test Crossmatch 09/09/16 09/09/16 09/09/16 05:41 11:55 14:13 WBC RBC Hgb Hct MCV MCH MCHC RDW Plt Count Lymph % (Auto) [place] % (Auto) Lymph # [place] # Baso # Seg Neutrophils % Seg Neuts % (Manual) Lymphocytes % (Manual) Monocytes % (Manual) Eosinophils % (Manual) Basophils % (Manual) Nucleated RBC % Seg Neutrophils # Seg Neutrophils # Man Lymphocytes # (Manual) Monocytes # (Manual) Eosinophils # (Manual) Basophils # (Manual) PT INR Fibrinogen dRVVT Confirm Interp Factor V Activity POC ABG pH POC ABG pCO2 POC ABG pO2 ABG pO2 ABG HCO3 ABG Base Excess ABG Hemoglobin Oxyhemoglobin Sodium Potassium Chloride Carbon Dioxide BUN Creatinine Glucose POC Glucose 155 H 186 H Lactic Acid Calcium Phosphorus Magnesium Direct Bilirubin AST ALT Alkaline Phosphatase Lactate Dehydrogenase Troponin T C-Reactive Protein Total Protein Albumin Prealbumin Triglycerides Cholesterol LDL Cholesterol Direct HDL Cholesterol Urine pH Urine WBC (Auto) 25.0 H Urine Creatinine Urine Total Protein Fluid Total Protein Vancomycin Trough Rheumatoid Factor Complement C4 Miscellaneous Test Crossmatch 09/09/16 09/09/16 09/10/16 17:33 23:13 05:09 WBC RBC Hgb Hct MCV MCH MCHC RDW Plt Count Lymph % (Auto) [place] % (Auto) Lymph # [place] # Baso # Seg Neutrophils % Seg Neuts % (Manual) Lymphocytes % (Manual) Monocytes % (Manual) Eosinophils % (Manual) Basophils % (Manual) Nucleated RBC % Seg Neutrophils # Seg Neutrophils # Man Lymphocytes # (Manual) Monocytes # (Manual) Eosinophils # (Manual) Basophils # (Manual) PT INR Fibrinogen dRVVT Confirm Interp Factor V Activity POC ABG pH POC ABG pCO2 POC ABG pO2 74 L ABG pO2 ABG HCO3 ABG Base Excess ABG Hemoglobin Oxyhemoglobin Sodium Potassium Chloride Carbon Dioxide BUN Creatinine Glucose POC Glucose 211 H 215 H Lactic Acid Calcium Phosphorus Magnesium Direct Bilirubin AST ALT Alkaline Phosphatase Lactate Dehydrogenase Troponin T C-Reactive Protein Total Protein Albumin Prealbumin Triglycerides Cholesterol LDL Cholesterol Direct HDL Cholesterol Urine pH Urine WBC (Auto) Urine Creatinine Urine Total Protein Fluid Total Protein Vancomycin Trough Rheumatoid Factor Complement C4 Miscellaneous Test Crossmatch 09/10/16 09/10/16 09/10/16 05:17 05:17 11:31 WBC 15.8 H RBC 3.25 L Hgb 7.3 L Hct 22.9 L MCV 71 L MCH 23 L MCHC RDW 18.4 H Plt Count Lymph % (Auto) [place] % (Auto) Lymph # [place] # Baso # Seg Neutrophils % Seg Neuts % (Manual) 91.0 H Lymphocytes % (Manual) 4.0 L Monocytes % (Manual) Eosinophils % (Manual) Basophils % (Manual) Nucleated RBC % Seg Neutrophils # Seg Neutrophils # Man 14.4 H Lymphocytes # (Manual) 0.6 L Monocytes # (Manual) Eosinophils # (Manual) Basophils # (Manual) PT INR Fibrinogen dRVVT Confirm Interp Factor V Activity POC ABG pH POC ABG pCO2 POC ABG pO2 ABG pO2 ABG HCO3 ABG Base Excess ABG Hemoglobin Oxyhemoglobin Sodium Potassium Chloride Carbon Dioxide 21 L BUN 93 H Creatinine 2.9 H Glucose 146 H POC Glucose 188 H Lactic Acid Calcium 8.1 L Phosphorus Magnesium Direct Bilirubin AST ALT Alkaline Phosphatase Lactate Dehydrogenase Troponin T C-Reactive Protein Total Protein Albumin Prealbumin Triglycerides Cholesterol LDL Cholesterol Direct HDL Cholesterol Urine pH Urine WBC (Auto) Urine Creatinine Urine Total Protein Fluid Total Protein Vancomycin Trough Rheumatoid Factor Complement C4 Miscellaneous Test Crossmatch 09/10/16 09/10/16 09/10/16 13:17 17:20 23:32 WBC RBC Hgb Hct MCV MCH MCHC RDW Plt Count Lymph % (Auto) [place] % (Auto) Lymph # [place] # Baso # Seg Neutrophils % Seg Neuts % (Manual) Lymphocytes % (Manual) Monocytes % (Manual) Eosinophils % (Manual) Basophils % (Manual) Nucleated RBC % Seg Neutrophils # Seg Neutrophils # Man Lymphocytes # (Manual) Monocytes # (Manual) Eosinophils # (Manual) Basophils # (Manual) PT INR Fibrinogen dRVVT Confirm Interp Factor V Activity POC ABG pH POC ABG pCO2 POC ABG pO2 ABG pO2 ABG HCO3 ABG Base Excess ABG Hemoglobin Oxyhemoglobin Sodium Potassium Chloride Carbon Dioxide BUN Creatinine Glucose POC Glucose 199 H 186 H Lactic Acid Calcium Phosphorus Magnesium Direct Bilirubin AST ALT Alkaline Phosphatase Lactate Dehydrogenase Troponin T C-Reactive Protein Total Protein Albumin Prealbumin Triglycerides Cholesterol LDL Cholesterol Direct HDL Cholesterol Urine pH Urine WBC (Auto) Urine Creatinine Urine Total Protein Fluid Total Protein Vancomycin Trough Rheumatoid Factor Complement C4 Miscellaneous Test Crossmatch See Detail 09/11/16 09/11/16 09/11/16 05:10 05:10 05:17 WBC 28.4 H RBC Hgb 9.2 L Hct 29.3 L D MCV 73 L MCH 23 L MCHC RDW 18.9 H Plt Count 452 H Lymph % (Auto) [place] % (Auto) Lymph # [place] # Baso # Seg Neutrophils % Seg Neuts % (Manual) 89.5 H Lymphocytes % (Manual) 2.0 L Monocytes % (Manual) Eosinophils % (Manual) Basophils % (Manual) Nucleated RBC % Seg Neutrophils # Seg Neutrophils # Man 25.4 H Lymphocytes # (Manual) 0.6 L Monocytes # (Manual) 1.3 H Eosinophils # (Manual) Basophils # (Manual) PT INR Fibrinogen dRVVT Confirm Interp Factor V Activity POC ABG pH POC ABG pCO2 POC ABG pO2 ABG pO2 ABG HCO3 ABG Base Excess ABG Hemoglobin Oxyhemoglobin Sodium 136 L Potassium Chloride Carbon Dioxide 18 L BUN 107 H Creatinine 2.6 H Glucose 187 H POC Glucose 230 H Lactic Acid Calcium 8.3 L Phosphorus Magnesium Direct Bilirubin AST ALT Alkaline Phosphatase Lactate Dehydrogenase Troponin T C-Reactive Protein Total Protein Albumin Prealbumin Triglycerides Cholesterol LDL Cholesterol Direct HDL Cholesterol Urine pH Urine WBC (Auto) Urine Creatinine Urine Total Protein Fluid Total Protein Vancomycin Trough Rheumatoid Factor Complement C4 Miscellaneous Test Crossmatch 09/11/16 09/11/16 09/11/16 05:55 12:02 17:32 WBC RBC Hgb Hct MCV MCH MCHC RDW Plt Count Lymph % (Auto) [place] % (Auto) Lymph # [place] # Baso # Seg Neutrophils % Seg Neuts % (Manual) Lymphocytes % (Manual) Monocytes % (Manual) Eosinophils % (Manual) Basophils % (Manual) Nucleated RBC % Seg Neutrophils # Seg Neutrophils # Man Lymphocytes # (Manual) Monocytes # (Manual) Eosinophils # (Manual) Basophils # (Manual) PT INR Fibrinogen dRVVT Confirm Interp Factor V Activity POC ABG pH POC ABG pCO2 33.8 L POC ABG pO2 ABG pO2 ABG HCO3 ABG Base Excess ABG Hemoglobin Oxyhemoglobin Sodium Potassium Chloride Carbon Dioxide BUN Creatinine Glucose POC Glucose 191 H 239 H Lactic Acid Calcium Phosphorus Magnesium Direct Bilirubin AST ALT Alkaline Phosphatase Lactate Dehydrogenase Troponin T C-Reactive Protein Total Protein Albumin Prealbumin Triglycerides Cholesterol LDL Cholesterol Direct HDL Cholesterol Urine pH Urine WBC (Auto) Urine Creatinine Urine Total Protein Fluid Total Protein Vancomycin Trough Rheumatoid Factor Complement C4 Miscellaneous Test Crossmatch 09/11/16 09/12/16 09/12/16 23:52 05:09 05:32 WBC RBC Hgb Hct MCV MCH MCHC RDW Plt Count Lymph % (Auto) [place] % (Auto) Lymph # [place] # Baso # Seg Neutrophils % Seg Neuts % (Manual) Lymphocytes % (Manual) Monocytes % (Manual) Eosinophils % (Manual) Basophils % (Manual) Nucleated RBC % Seg Neutrophils # Seg Neutrophils # Man Lymphocytes # (Manual) Monocytes # (Manual) Eosinophils # (Manual) Basophils # (Manual) PT INR Fibrinogen dRVVT Confirm Interp Factor V Activity POC ABG pH POC ABG pCO2 34.6 L POC ABG pO2 ABG pO2 ABG HCO3 ABG Base Excess ABG Hemoglobin Oxyhemoglobin Sodium Potassium Chloride Carbon Dioxide BUN Creatinine Glucose POC Glucose 265 H 184 H Lactic Acid Calcium Phosphorus Magnesium Direct Bilirubin AST ALT Alkaline Phosphatase Lactate Dehydrogenase Troponin T C-Reactive Protein Total Protein Albumin Prealbumin Triglycerides Cholesterol LDL Cholesterol Direct HDL Cholesterol Urine pH Urine WBC (Auto) Urine Creatinine Urine Total Protein Fluid Total Protein Vancomycin Trough Rheumatoid Factor Complement C4 Miscellaneous Test Crossmatch 09/12/16 09/12/16 09/12/16 06:45 06:45 07:22 WBC 31.7 H RBC 3.54 L Hgb 8.3 L Hct 25.9 L MCV 73 L MCH 23 L MCHC RDW 18.9 H Plt Count Lymph % (Auto) [place] % (Auto) Lymph # [place] # Baso # Seg Neutrophils % Seg Neuts % (Manual) 88.5 H Lymphocytes % (Manual) 4.5 L Monocytes % (Manual) Eosinophils % (Manual) Basophils % (Manual) Nucleated RBC % Seg Neutrophils # Seg Neutrophils # Man 28.1 H Lymphocytes # (Manual) Monocytes # (Manual) 1.0 H Eosinophils # (Manual) Basophils # (Manual) PT INR Fibrinogen dRVVT Confirm Interp Factor V Activity POC ABG pH POC ABG pCO2 POC ABG pO2 ABG pO2 ABG HCO3 ABG Base Excess ABG Hemoglobin Oxyhemoglobin Sodium Potassium Chloride Carbon Dioxide 20 L BUN 115 H Creatinine 2.7 H Glucose 165 H POC Glucose Lactic Acid Calcium 8.0 L Phosphorus Magnesium Direct Bilirubin AST ALT Alkaline Phosphatase Lactate Dehydrogenase Troponin T C-Reactive Protein Total Protein Albumin Prealbumin Triglycerides 217 H Cholesterol LDL Cholesterol Direct HDL Cholesterol Urine pH Urine WBC (Auto) Urine Creatinine Urine Total Protein Fluid Total Protein Vancomycin Trough Rheumatoid Factor Complement C4 Miscellaneous Test Crossmatch 09/12/16 09/12/16 09/12/16 07:22 09:59 12:21 WBC RBC Hgb Hct MCV MCH MCHC RDW Plt Count Lymph % (Auto) [place] % (Auto) Lymph # [place] # Baso # Seg Neutrophils % Seg Neuts % (Manual) Lymphocytes % (Manual) Monocytes % (Manual) Eosinophils % (Manual) Basophils % (Manual) Nucleated RBC % Seg Neutrophils # Seg Neutrophils # Man Lymphocytes # (Manual) Monocytes # (Manual) Eosinophils # (Manual) Basophils # (Manual) PT INR Fibrinogen dRVVT Confirm Interp Positive H Factor V Activity POC ABG pH POC ABG pCO2 POC ABG pO2 ABG pO2 ABG HCO3 ABG Base Excess ABG Hemoglobin Oxyhemoglobin Sodium Potassium Chloride Carbon Dioxide BUN Creatinine Glucose POC Glucose 224 H Lactic Acid Calcium Phosphorus Magnesium Direct Bilirubin AST ALT Alkaline Phosphatase Lactate Dehydrogenase Troponin T C-Reactive Protein 1.70 H Total Protein Albumin Prealbumin Triglycerides Cholesterol LDL Cholesterol Direct HDL Cholesterol Urine pH Urine WBC (Auto) Urine Creatinine Urine Total Protein Fluid Total Protein Vancomycin Trough Rheumatoid Factor Complement C4 Miscellaneous Test Crossmatch 09/12/16 09/12/16 09/13/16 16:51 23:28 04:00 WBC 45.0 H* RBC Hgb 9.4 L Hct MCV 75 L MCH 23 L MCHC RDW 19.0 H Plt Count 470 H Lymph % (Auto) [place] % (Auto) Lymph # [place] # Baso # Seg Neutrophils % Seg Neuts % (Manual) 89.0 H Lymphocytes % (Manual) 5.0 L Monocytes % (Manual) Eosinophils % (Manual) Basophils % (Manual) Nucleated RBC % Seg Neutrophils # Seg Neutrophils # Man 40.1 H Lymphocytes # (Manual) Monocytes # (Manual) Eosinophils # (Manual) Basophils # (Manual) PT INR Fibrinogen dRVVT Confirm Interp Factor V Activity POC ABG pH POC ABG pCO2 POC ABG pO2 ABG pO2 ABG HCO3 ABG Base Excess ABG Hemoglobin Oxyhemoglobin Sodium Potassium Chloride Carbon Dioxide BUN Creatinine Glucose POC Glucose 169 H 150 H Lactic Acid Calcium Phosphorus Magnesium Direct Bilirubin AST ALT Alkaline Phosphatase Lactate Dehydrogenase Troponin T C-Reactive Protein Total Protein Albumin Prealbumin Triglycerides Cholesterol LDL Cholesterol Direct HDL Cholesterol Urine pH Urine WBC (Auto) Urine Creatinine Urine Total Protein Fluid Total Protein Vancomycin Trough Rheumatoid Factor Complement C4 Miscellaneous Test Crossmatch 09/13/16 09/13/16 09/13/16 04:00 11:26 17:31 WBC RBC Hgb Hct MCV MCH MCHC RDW Plt Count Lymph % (Auto) [place] % (Auto) Lymph # [place] # Baso # Seg Neutrophils % Seg Neuts % (Manual) Lymphocytes % (Manual) Monocytes % (Manual) Eosinophils % (Manual) Basophils % (Manual) Nucleated RBC % Seg Neutrophils # Seg Neutrophils # Man Lymphocytes # (Manual) Monocytes # (Manual) Eosinophils # (Manual) Basophils # (Manual) PT INR Fibrinogen dRVVT Confirm Interp Factor V Activity POC ABG pH POC ABG pCO2 POC ABG pO2 ABG pO2 ABG HCO3 ABG Base Excess ABG Hemoglobin Oxyhemoglobin Sodium Potassium Chloride Carbon Dioxide 20 L BUN 116 H Creatinine 3.0 H Glucose 172 H POC Glucose 140 H 183 H Lactic Acid Calcium Phosphorus Magnesium Direct Bilirubin AST ALT Alkaline Phosphatase Lactate Dehydrogenase Troponin T C-Reactive Protein Total Protein 6.2 L Albumin 2.9 L Prealbumin Triglycerides Cholesterol LDL Cholesterol Direct HDL Cholesterol Urine pH Urine WBC (Auto) Urine Creatinine Urine Total Protein Fluid Total Protein Vancomycin Trough Rheumatoid Factor Complement C4 Miscellaneous Test Crossmatch 09/13/16 09/14/16 09/14/16 23:23 04:06 04:07 WBC 29.4 H RBC Hgb 8.9 L Hct 27.3 L MCV 75 L MCH 24 L MCHC RDW 19.1 H Plt Count Lymph % (Auto) [place] % (Auto) Lymph # [place] # Baso # Seg Neutrophils % Seg Neuts % (Manual) 84.0 H Lymphocytes % (Manual) 6.0 L Monocytes % (Manual) 9.0 H Eosinophils % (Manual) Basophils % (Manual) Nucleated RBC % Seg Neutrophils # Seg Neutrophils # Man 24.7 H Lymphocytes # (Manual) Monocytes # (Manual) 2.6 H Eosinophils # (Manual) Basophils # (Manual) PT INR Fibrinogen dRVVT Confirm Interp Factor V Activity POC ABG pH 7.342 L POC ABG pCO2 POC ABG pO2 116 H ABG pO2 ABG HCO3 ABG Base Excess ABG Hemoglobin Oxyhemoglobin Sodium Potassium Chloride Carbon Dioxide BUN Creatinine Glucose POC Glucose 154 H Lactic Acid Calcium Phosphorus Magnesium Direct Bilirubin AST ALT Alkaline Phosphatase Lactate Dehydrogenase Troponin T C-Reactive Protein Total Protein Albumin Prealbumin Triglycerides Cholesterol LDL Cholesterol Direct HDL Cholesterol Urine pH Urine WBC (Auto) Urine Creatinine Urine Total Protein Fluid Total Protein Vancomycin Trough Rheumatoid Factor Complement C4 Miscellaneous Test Crossmatch 09/14/16 09/14/16 09/14/16 04:07 05:29 12:19 WBC RBC Hgb Hct MCV MCH MCHC RDW Plt Count Lymph % (Auto) [place] % (Auto) Lymph # [place] # Baso # Seg Neutrophils % Seg Neuts % (Manual) Lymphocytes % (Manual) Monocytes % (Manual) Eosinophils % (Manual) Basophils % (Manual) Nucleated RBC % Seg Neutrophils # Seg Neutrophils # Man Lymphocytes # (Manual) Monocytes # (Manual) Eosinophils # (Manual) Basophils # (Manual) PT INR Fibrinogen dRVVT Confirm Interp Factor V Activity POC ABG pH POC ABG pCO2 POC ABG pO2 ABG pO2 ABG HCO3 ABG Base Excess ABG Hemoglobin Oxyhemoglobin Sodium 136 L Potassium Chloride Carbon Dioxide 18 L BUN 121 H Creatinine 2.8 H Glucose 214 H POC Glucose 239 H 181 H Lactic Acid Calcium Phosphorus Magnesium Direct Bilirubin AST ALT Alkaline Phosphatase Lactate Dehydrogenase Troponin T C-Reactive Protein Total Protein Albumin Prealbumin Triglycerides Cholesterol LDL Cholesterol Direct HDL Cholesterol Urine pH Urine WBC (Auto) Urine Creatinine Urine Total Protein Fluid Total Protein Vancomycin Trough Rheumatoid Factor Complement C4 Miscellaneous Test Crossmatch 09/14/16 09/14/16 09/15/16 18:12 23:37 05:00 WBC 26.1 H RBC 3.05 L Hgb 7.2 L Hct 22.9 L MCV 75 L MCH 24 L MCHC RDW 19.0 H Plt Count Lymph % (Auto) [place] % (Auto) Lymph # [place] # Baso # Seg Neutrophils % Seg Neuts % (Manual) Lymphocytes % (Manual) Monocytes % (Manual) Eosinophils % (Manual) Basophils % (Manual) Nucleated RBC % Seg Neutrophils # Seg Neutrophils # Man Lymphocytes # (Manual) Monocytes # (Manual) Eosinophils # (Manual) Basophils # (Manual) PT INR Fibrinogen dRVVT Confirm Interp Factor V Activity POC ABG pH POC ABG pCO2 POC ABG pO2 ABG pO2 ABG HCO3 ABG Base Excess ABG Hemoglobin Oxyhemoglobin Sodium Potassium Chloride Carbon Dioxide BUN Creatinine Glucose POC Glucose 266 H 154 H Lactic Acid Calcium Phosphorus Magnesium Direct Bilirubin AST ALT Alkaline Phosphatase Lactate Dehydrogenase Troponin T C-Reactive Protein Total Protein Albumin Prealbumin Triglycerides Cholesterol LDL Cholesterol Direct HDL Cholesterol Urine pH Urine WBC (Auto) Urine Creatinine Urine Total Protein Fluid Total Protein Vancomycin Trough Rheumatoid Factor Complement C4 Miscellaneous Test Crossmatch 09/15/16 09/15/16 09/15/16 05:00 05:17 12:45 WBC RBC Hgb Hct MCV MCH MCHC RDW Plt Count Lymph % (Auto) [place] % (Auto) Lymph # [place] # Baso # Seg Neutrophils % Seg Neuts % (Manual) Lymphocytes % (Manual) Monocytes % (Manual) Eosinophils % (Manual) Basophils % (Manual) Nucleated RBC % Seg Neutrophils # Seg Neutrophils # Man Lymphocytes # (Manual) Monocytes # (Manual) Eosinophils # (Manual) Basophils # (Manual) PT INR Fibrinogen dRVVT Confirm Interp Factor V Activity POC ABG pH POC ABG pCO2 POC ABG pO2 ABG pO2 ABG HCO3 ABG Base Excess ABG Hemoglobin Oxyhemoglobin Sodium Potassium 5.2 H Chloride Carbon Dioxide 18 L BUN 139 H Creatinine 3.7 H Glucose 227 H POC Glucose 226 H 244 H Lactic Acid Calcium 8.3 L Phosphorus Magnesium Direct Bilirubin AST ALT Alkaline Phosphatase Lactate Dehydrogenase Troponin T C-Reactive Protein Total Protein Albumin Prealbumin Triglycerides Cholesterol LDL Cholesterol Direct HDL Cholesterol Urine pH Urine WBC (Auto) Urine Creatinine Urine Total Protein Fluid Total Protein Vancomycin Trough Rheumatoid Factor Complement C4 Miscellaneous Test Crossmatch 09/15/16 09/15/16 09/15/16 14:32 17:33 23:35 WBC RBC Hgb Hct MCV MCH MCHC RDW Plt Count Lymph % (Auto) [place] % (Auto) Lymph # [place] # Baso # Seg Neutrophils % Seg Neuts % (Manual) Lymphocytes % (Manual) Monocytes % (Manual) Eosinophils % (Manual) Basophils % (Manual) Nucleated RBC % Seg Neutrophils # Seg Neutrophils # Man Lymphocytes # (Manual) Monocytes # (Manual) Eosinophils # (Manual) Basophils # (Manual) PT INR Fibrinogen dRVVT Confirm Interp Factor V Activity POC ABG pH POC ABG pCO2 27.7 L POC ABG pO2 120 H ABG pO2 ABG HCO3 ABG Base Excess ABG Hemoglobin Oxyhemoglobin Sodium Potassium Chloride Carbon Dioxide BUN Creatinine Glucose POC Glucose 232 H 167 H Lactic Acid Calcium Phosphorus Magnesium Direct Bilirubin AST ALT Alkaline Phosphatase Lactate Dehydrogenase Troponin T C-Reactive Protein Total Protein Albumin Prealbumin Triglycerides Cholesterol LDL Cholesterol Direct HDL Cholesterol Urine pH Urine WBC (Auto) Urine Creatinine Urine Total Protein Fluid Total Protein Vancomycin Trough Rheumatoid Factor Complement C4 Miscellaneous Test Crossmatch 09/16/16 09/16/16 09/16/16 03:58 10:27 10:27 WBC 19.0 H RBC 2.77 L Hgb 6.5 L Hct 20.9 L MCV 76 L MCH 23 L MCHC RDW 19.3 H Plt Count Lymph % (Auto) 11.0 L [place] % (Auto) Lymph # [place] # 1.1 H Baso # Seg Neutrophils % 82.5 H Seg Neuts % (Manual) Lymphocytes % (Manual) Monocytes % (Manual) Eosinophils % (Manual) Basophils % (Manual) Nucleated RBC % Seg Neutrophils # 15.7 H Seg Neutrophils # Man Lymphocytes # (Manual) Monocytes # (Manual) Eosinophils # (Manual) Basophils # (Manual) PT INR Fibrinogen dRVVT Confirm Interp Factor V Activity POC ABG pH POC ABG pCO2 POC ABG pO2 ABG pO2 ABG HCO3 ABG Base Excess ABG Hemoglobin Oxyhemoglobin Sodium Potassium Chloride 109.3 H Carbon Dioxide 18 L BUN 139 H Creatinine 4.1 H Glucose 144 H POC Glucose 146 H Lactic Acid Calcium 8.1 L Phosphorus Magnesium Direct Bilirubin AST ALT Alkaline Phosphatase Lactate Dehydrogenase Troponin T C-Reactive Protein Total Protein Albumin Prealbumin Triglycerides Cholesterol LDL Cholesterol Direct HDL Cholesterol Urine pH Urine WBC (Auto) Urine Creatinine Urine Total Protein Fluid Total Protein Vancomycin Trough Rheumatoid Factor Complement C4 Miscellaneous Test Crossmatch 09/16/16 09/16/16 09/16/16 12:04 12:10 13:55 WBC RBC Hgb Hct MCV MCH MCHC RDW Plt Count Lymph % (Auto) [place] % (Auto) Lymph # [place] # Baso # Seg Neutrophils % Seg Neuts % (Manual) Lymphocytes % (Manual) Monocytes % (Manual) Eosinophils % (Manual) Basophils % (Manual) Nucleated RBC % Seg Neutrophils # Seg Neutrophils # Man Lymphocytes # (Manual) Monocytes # (Manual) Eosinophils # (Manual) Basophils # (Manual) PT INR Fibrinogen dRVVT Confirm Interp Factor V Activity POC ABG pH POC ABG pCO2 32.9 L POC ABG pO2 ABG pO2 ABG HCO3 ABG Base Excess ABG Hemoglobin Oxyhemoglobin Sodium Potassium Chloride Carbon Dioxide BUN Creatinine Glucose POC Glucose 185 H Lactic Acid Calcium Phosphorus Magnesium Direct Bilirubin AST ALT Alkaline Phosphatase Lactate Dehydrogenase Troponin T C-Reactive Protein Total Protein Albumin Prealbumin Triglycerides Cholesterol LDL Cholesterol Direct HDL Cholesterol Urine pH Urine WBC (Auto) Urine Creatinine Urine Total Protein Fluid Total Protein Vancomycin Trough Rheumatoid Factor Complement C4 Miscellaneous Test Crossmatch See Detail 09/16/16 09/16/16 09/16/16 17:55 19:19 23:48 WBC RBC Hgb Hct MCV MCH MCHC RDW Plt Count Lymph % (Auto) [place] % (Auto) Lymph # [place] # Baso # Seg Neutrophils % Seg Neuts % (Manual) Lymphocytes % (Manual) Monocytes % (Manual) Eosinophils % (Manual) Basophils % (Manual) Nucleated RBC % Seg Neutrophils # Seg Neutrophils # Man Lymphocytes # (Manual) Monocytes # (Manual) Eosinophils # (Manual) Basophils # (Manual) PT INR Fibrinogen dRVVT Confirm Interp Factor V Activity POC ABG pH POC ABG pCO2 POC ABG pO2 ABG pO2 ABG HCO3 ABG Base Excess ABG Hemoglobin Oxyhemoglobin Sodium Potassium Chloride Carbon Dioxide BUN Creatinine Glucose POC Glucose 222 H 107 H Lactic Acid Calcium Phosphorus Magnesium Direct Bilirubin AST ALT Alkaline Phosphatase Lactate Dehydrogenase Troponin T C-Reactive Protein Total Protein Albumin Prealbumin Triglycerides Cholesterol LDL Cholesterol Direct HDL Cholesterol Urine pH Urine WBC (Auto) Urine Creatinine 47.4 H Urine Total Protein 16 H Fluid Total Protein Vancomycin Trough Rheumatoid Factor Complement C4 Miscellaneous Test Crossmatch 09/17/16 09/17/16 09/17/16 03:45 03:45 04:55 WBC 19.6 H RBC 3.41 L Hgb 8.5 L Hct 26.7 L MCV 78 L MCH 25 L MCHC RDW 19.9 H Plt Count Lymph % (Auto) 9.3 L [place] % (Auto) Lymph # [place] # 1.2 H Baso # Seg Neutrophils % 83.9 H Seg Neuts % (Manual) Lymphocytes % (Manual) Monocytes % (Manual) Eosinophils % (Manual) Basophils % (Manual) Nucleated RBC % Seg Neutrophils # 16.4 H Seg Neutrophils # Man Lymphocytes # (Manual) Monocytes # (Manual) Eosinophils # (Manual) Basophils # (Manual) PT INR Fibrinogen dRVVT Confirm Interp Factor V Activity POC ABG pH POC ABG pCO2 POC ABG pO2 ABG pO2 ABG HCO3 ABG Base Excess ABG Hemoglobin Oxyhemoglobin Sodium 146 H Potassium 5.1 H Chloride 110.9 H Carbon Dioxide 16 L BUN 146 H Creatinine 4.0 H Glucose 108 H POC Glucose 133 H Lactic Acid Calcium Phosphorus Magnesium 3.00 H Direct Bilirubin AST ALT Alkaline Phosphatase Lactate Dehydrogenase Troponin T C-Reactive Protein Total Protein Albumin Prealbumin Triglycerides Cholesterol LDL Cholesterol Direct HDL Cholesterol Urine pH Urine WBC (Auto) Urine Creatinine Urine Total Protein Fluid Total Protein Vancomycin Trough Rheumatoid Factor Complement C4 Miscellaneous Test Crossmatch 09/17/16 09/17/16 09/17/16 11:15 17:33 23:47 WBC RBC Hgb Hct MCV MCH MCHC RDW Plt Count Lymph % (Auto) [place] % (Auto) Lymph # [place] # Baso # Seg Neutrophils % Seg Neuts % (Manual) Lymphocytes % (Manual) Monocytes % (Manual) Eosinophils % (Manual) Basophils % (Manual) Nucleated RBC % Seg Neutrophils # Seg Neutrophils # Man Lymphocytes # (Manual) Monocytes # (Manual) Eosinophils # (Manual) Basophils # (Manual) PT INR Fibrinogen dRVVT Confirm Interp Factor V Activity POC ABG pH POC ABG pCO2 POC ABG pO2 ABG pO2 ABG HCO3 ABG Base Excess ABG Hemoglobin Oxyhemoglobin Sodium Potassium Chloride Carbon Dioxide BUN Creatinine Glucose POC Glucose 176 H 246 H 148 H Lactic Acid Calcium Phosphorus Magnesium Direct Bilirubin AST ALT Alkaline Phosphatase Lactate Dehydrogenase Troponin T C-Reactive Protein Total Protein Albumin Prealbumin Triglycerides Cholesterol LDL Cholesterol Direct HDL Cholesterol Urine pH Urine WBC (Auto) Urine Creatinine Urine Total Protein Fluid Total Protein Vancomycin Trough Rheumatoid Factor Complement C4 Miscellaneous Test Crossmatch 09/18/16 09/18/16 09/18/16 05:33 08:31 08:31 WBC 18.0 H RBC 3.17 L Hgb 9.0 L Hct 25.7 L MCV MCH MCHC 35 H RDW 20.4 H Plt Count Lymph % (Auto) [place] % (Auto) Lymph # [place] # Baso # Seg Neutrophils % Seg Neuts % (Manual) Lymphocytes % (Manual) Monocytes % (Manual) Eosinophils % (Manual) Basophils % (Manual) Nucleated RBC % Seg Neutrophils # Seg Neutrophils # Man Lymphocytes # (Manual) Monocytes # (Manual) Eosinophils # (Manual) Basophils # (Manual) PT INR Fibrinogen dRVVT Confirm Interp Factor V Activity POC ABG pH POC ABG pCO2 POC ABG pO2 ABG pO2 ABG HCO3 ABG Base Excess ABG Hemoglobin Oxyhemoglobin Sodium Potassium Chloride Carbon Dioxide 15 L BUN 124 H Creatinine 3.8 H Glucose POC Glucose 120 H Lactic Acid Calcium 8.1 L Phosphorus Magnesium Direct Bilirubin AST ALT Alkaline Phosphatase Lactate Dehydrogenase Troponin T C-Reactive Protein Total Protein Albumin Prealbumin Triglycerides Cholesterol LDL Cholesterol Direct HDL Cholesterol Urine pH Urine WBC (Auto) Urine Creatinine Urine Total Protein Fluid Total Protein Vancomycin Trough Rheumatoid Factor Complement C4 Miscellaneous Test Crossmatch 09/18/16 09/18/16 09/18/16 12:03 15:34 17:50 WBC RBC Hgb Hct MCV MCH MCHC RDW Plt Count Lymph % (Auto) [place] % (Auto) Lymph # [place] # Baso # Seg Neutrophils % Seg Neuts % (Manual) Lymphocytes % (Manual) Monocytes % (Manual) Eosinophils % (Manual) Basophils % (Manual) Nucleated RBC % Seg Neutrophils # Seg Neutrophils # Man Lymphocytes # (Manual) Monocytes # (Manual) Eosinophils # (Manual) Basophils # (Manual) PT INR Fibrinogen dRVVT Confirm Interp Factor V Activity POC ABG pH POC ABG pCO2 25.7 L POC ABG pO2 66 L ABG pO2 ABG HCO3 ABG Base Excess ABG Hemoglobin Oxyhemoglobin Sodium Potassium Chloride Carbon Dioxide BUN Creatinine Glucose POC Glucose 156 H 220 H Lactic Acid Calcium Phosphorus Magnesium Direct Bilirubin AST ALT Alkaline Phosphatase Lactate Dehydrogenase Troponin T C-Reactive Protein Total Protein Albumin Prealbumin Triglycerides Cholesterol LDL Cholesterol Direct HDL Cholesterol Urine pH Urine WBC (Auto) Urine Creatinine Urine Total Protein Fluid Total Protein Vancomycin Trough Rheumatoid Factor Complement C4 Miscellaneous Test Crossmatch 09/19/16 09/19/16 09/19/16 06:21 09:50 09:50 WBC 17.1 H RBC 3.49 L Hgb 9.0 L Hct 28.1 L MCV MCH 26 L MCHC RDW 20.8 H Plt Count Lymph % (Auto) 11.5 L [place] % (Auto) 7.5 H Lymph # [place] # 1.3 H Baso # Seg Neutrophils % 79.8 H Seg Neuts % (Manual) Lymphocytes % (Manual) Monocytes % (Manual) Eosinophils % (Manual) Basophils % (Manual) Nucleated RBC % Seg Neutrophils # 13.7 H Seg Neutrophils # Man Lymphocytes # (Manual) Monocytes # (Manual) Eosinophils # (Manual) Basophils # (Manual) PT INR Fibrinogen dRVVT Confirm Interp Factor V Activity POC ABG pH POC ABG pCO2 POC ABG pO2 ABG pO2 ABG HCO3 ABG Base Excess ABG Hemoglobin Oxyhemoglobin Sodium Potassium Chloride 108.6 H Carbon Dioxide 15 L BUN 125 H Creatinine 4.1 H Glucose 124 H POC Glucose 119 H Lactic Acid Calcium Phosphorus Magnesium Direct Bilirubin AST ALT Alkaline Phosphatase Lactate Dehydrogenase Troponin T C-Reactive Protein Total Protein Albumin Prealbumin Triglycerides Cholesterol LDL Cholesterol Direct HDL Cholesterol Urine pH Urine WBC (Auto) Urine Creatinine Urine Total Protein Fluid Total Protein Vancomycin Trough Rheumatoid Factor Complement C4 Miscellaneous Test Crossmatch 09/19/16 09/19/16 09/19/16 11:25 17:53 23:36 WBC RBC Hgb Hct MCV MCH MCHC RDW Plt Count Lymph % (Auto) [place] % (Auto) Lymph # [place] # Baso # Seg Neutrophils % Seg Neuts % (Manual) Lymphocytes % (Manual) Monocytes % (Manual) Eosinophils % (Manual) Basophils % (Manual) Nucleated RBC % Seg Neutrophils # Seg Neutrophils # Man Lymphocytes # (Manual) Monocytes # (Manual) Eosinophils # (Manual) Basophils # (Manual) PT INR Fibrinogen dRVVT Confirm Interp Factor V Activity POC ABG pH POC ABG pCO2 POC ABG pO2 ABG pO2 ABG HCO3 ABG Base Excess ABG Hemoglobin Oxyhemoglobin Sodium Potassium Chloride Carbon Dioxide BUN Creatinine Glucose POC Glucose 160 H 245 H 121 H Lactic Acid Calcium Phosphorus Magnesium Direct Bilirubin AST ALT Alkaline Phosphatase Lactate Dehydrogenase Troponin T C-Reactive Protein Total Protein Albumin Prealbumin Triglycerides Cholesterol LDL Cholesterol Direct HDL Cholesterol Urine pH Urine WBC (Auto) Urine Creatinine Urine Total Protein Fluid Total Protein Vancomycin Trough Rheumatoid Factor Complement C4 Miscellaneous Test Crossmatch 09/20/16 09/20/16 09/20/16 04:10 04:10 04:10 WBC 17.0 H RBC 3.21 L Hgb 8.2 L Hct 25.5 L MCV MCH 26 L MCHC RDW 20.9 H Plt Count Lymph % (Auto) [place] % (Auto) Lymph # [place] # Baso # Seg Neutrophils % Seg Neuts % (Manual) Lymphocytes % (Manual) Monocytes % (Manual) Eosinophils % (Manual) Basophils % (Manual) Nucleated RBC % Seg Neutrophils # Seg Neutrophils # Man Lymphocytes # (Manual) Monocytes # (Manual) Eosinophils # (Manual) Basophils # (Manual) PT INR Fibrinogen dRVVT Confirm Interp Factor V Activity POC ABG pH POC ABG pCO2 POC ABG pO2 ABG pO2 ABG HCO3 ABG Base Excess ABG Hemoglobin Oxyhemoglobin Sodium Potassium Chloride 111.0 H Carbon Dioxide 16 L BUN 129 H Creatinine 3.7 H Glucose 115 H POC Glucose Lactic Acid Calcium 8.2 L Phosphorus Magnesium Direct Bilirubin AST ALT Alkaline Phosphatase Lactate Dehydrogenase Troponin T C-Reactive Protein Total Protein Albumin Prealbumin Triglycerides 243 H Cholesterol LDL Cholesterol Direct HDL Cholesterol Urine pH Urine WBC (Auto) Urine Creatinine Urine Total Protein Fluid Total Protein Vancomycin Trough Rheumatoid Factor Complement C4 Miscellaneous Test Crossmatch 09/20/16 09/20/16 09/20/16 05:40 11:52 16:50 WBC RBC Hgb Hct MCV MCH MCHC RDW Plt Count Lymph % (Auto) [place] % (Auto) Lymph # [place] # Baso # Seg Neutrophils % Seg Neuts % (Manual) Lymphocytes % (Manual) Monocytes % (Manual) Eosinophils % (Manual) Basophils % (Manual) Nucleated RBC % Seg Neutrophils # Seg Neutrophils # Man Lymphocytes # (Manual) Monocytes # (Manual) Eosinophils # (Manual) Basophils # (Manual) PT INR Fibrinogen dRVVT Confirm Interp Factor V Activity POC ABG pH POC ABG pCO2 POC ABG pO2 ABG pO2 ABG HCO3 ABG Base Excess ABG Hemoglobin Oxyhemoglobin Sodium Potassium Chloride Carbon Dioxide BUN Creatinine Glucose POC Glucose 131 H 183 H 236 H Lactic Acid Calcium Phosphorus Magnesium Direct Bilirubin AST ALT Alkaline Phosphatase Lactate Dehydrogenase Troponin T C-Reactive Protein Total Protein Albumin Prealbumin Triglycerides Cholesterol LDL Cholesterol Direct HDL Cholesterol Urine pH Urine WBC (Auto) Urine Creatinine Urine Total Protein Fluid Total Protein Vancomycin Trough Rheumatoid Factor Complement C4 Miscellaneous Test Crossmatch 09/20/16 09/21/16 09/21/16 23:51 03:30 04:44 WBC RBC Hgb Hct MCV MCH MCHC RDW Plt Count Lymph % (Auto) [place] % (Auto) Lymph # [place] # Baso # Seg Neutrophils % Seg Neuts % (Manual) Lymphocytes % (Manual) Monocytes % (Manual) Eosinophils % (Manual) Basophils % (Manual) Nucleated RBC % Seg Neutrophils # Seg Neutrophils # Man Lymphocytes # (Manual) Monocytes # (Manual) Eosinophils # (Manual) Basophils # (Manual) PT INR Fibrinogen dRVVT Confirm Interp Factor V Activity POC ABG pH POC ABG pCO2 POC ABG pO2 ABG pO2 ABG HCO3 ABG Base Excess ABG Hemoglobin Oxyhemoglobin Sodium Potassium Chloride Carbon Dioxide BUN Creatinine Glucose POC Glucose 114 H 141 H Lactic Acid Calcium Phosphorus Magnesium 2.70 H Direct Bilirubin AST ALT Alkaline Phosphatase Lactate Dehydrogenase Troponin T C-Reactive Protein Total Protein Albumin Prealbumin Triglycerides Cholesterol LDL Cholesterol Direct HDL Cholesterol Urine pH Urine WBC (Auto) Urine Creatinine Urine Total Protein Fluid Total Protein Vancomycin Trough Rheumatoid Factor Complement C4 Miscellaneous Test Crossmatch 09/21/16 09/21/16 09/21/16 07:45 07:45 10:01 WBC 13.8 H RBC 2.94 L Hgb 7.5 L Hct 23.5 L MCV MCH 26 L MCHC RDW 21.2 H Plt Count Lymph % (Auto) 6.9 L [place] % (Auto) 9.4 H Lymph # 0.9 L [place] # 1.3 H Baso # Seg Neutrophils % 83.2 H Seg Neuts % (Manual) Lymphocytes % (Manual) Monocytes % (Manual) Eosinophils % (Manual) Basophils % (Manual) Nucleated RBC % Seg Neutrophils # 11.5 H Seg Neutrophils # Man Lymphocytes # (Manual) Monocytes # (Manual) Eosinophils # (Manual) Basophils # (Manual) PT INR Fibrinogen dRVVT Confirm Interp Factor V Activity POC ABG pH 7.308 L POC ABG pCO2 31.9 L POC ABG pO2 148 H ABG pO2 ABG HCO3 ABG Base Excess ABG Hemoglobin Oxyhemoglobin Sodium 147 H Potassium Chloride 114.2 H Carbon Dioxide 15 L BUN 120 H Creatinine 3.9 H Glucose 156 H POC Glucose Lactic Acid Calcium 8.2 L Phosphorus Magnesium Direct Bilirubin AST ALT Alkaline Phosphatase Lactate Dehydrogenase Troponin T C-Reactive Protein Total Protein Albumin Prealbumin Triglycerides Cholesterol LDL Cholesterol Direct HDL Cholesterol Urine pH Urine WBC (Auto) Urine Creatinine Urine Total Protein Fluid Total Protein Vancomycin Trough Rheumatoid Factor Complement C4 Miscellaneous Test Crossmatch 09/21/16 09/21/16 09/21/16 12:00 12:03 13:00 WBC RBC Hgb Hct MCV MCH MCHC RDW Plt Count Lymph % (Auto) [place] % (Auto) Lymph # [place] # Baso # Seg Neutrophils % Seg Neuts % (Manual) Lymphocytes % (Manual) Monocytes % (Manual) Eosinophils % (Manual) Basophils % (Manual) Nucleated RBC % Seg Neutrophils # Seg Neutrophils # Man Lymphocytes # (Manual) Monocytes # (Manual) Eosinophils # (Manual) Basophils # (Manual) PT INR Fibrinogen dRVVT Confirm Interp Factor V Activity POC ABG pH POC ABG pCO2 POC ABG pO2 ABG pO2 ABG HCO3 ABG Base Excess ABG Hemoglobin Oxyhemoglobin Sodium Potassium Chloride Carbon Dioxide BUN Creatinine Glucose POC Glucose 163 H Lactic Acid Calcium Phosphorus Magnesium Direct Bilirubin AST ALT Alkaline Phosphatase Lactate Dehydrogenase Troponin T C-Reactive Protein Total Protein Albumin Prealbumin Triglycerides Cholesterol LDL Cholesterol Direct HDL Cholesterol Urine pH Urine WBC (Auto) Urine Creatinine 54.8 H Urine Total Protein Fluid Total Protein Vancomycin Trough 2.3 L Rheumatoid Factor Complement C4 Miscellaneous Test Crossmatch 09/21/16 09/21/16 09/22/16 16:51 23:17 06:27 WBC RBC Hgb Hct MCV MCH MCHC RDW Plt Count Lymph % (Auto) [place] % (Auto) Lymph # [place] # Baso # Seg Neutrophils % Seg Neuts % (Manual) Lymphocytes % (Manual) Monocytes % (Manual) Eosinophils % (Manual) Basophils % (Manual) Nucleated RBC % Seg Neutrophils # Seg Neutrophils # Man Lymphocytes # (Manual) Monocytes # (Manual) Eosinophils # (Manual) Basophils # (Manual) PT INR Fibrinogen dRVVT Confirm Interp Factor V Activity POC ABG pH POC ABG pCO2 POC ABG pO2 ABG pO2 ABG HCO3 ABG Base Excess ABG Hemoglobin Oxyhemoglobin Sodium Potassium Chloride Carbon Dioxide BUN Creatinine Glucose POC Glucose 206 H 114 H 115 H Lactic Acid Calcium Phosphorus Magnesium Direct Bilirubin AST ALT Alkaline Phosphatase Lactate Dehydrogenase Troponin T C-Reactive Protein Total Protein Albumin Prealbumin Triglycerides Cholesterol LDL Cholesterol Direct HDL Cholesterol Urine pH Urine WBC (Auto) Urine Creatinine Urine Total Protein Fluid Total Protein Vancomycin Trough Rheumatoid Factor Complement C4 Miscellaneous Test Crossmatch 09/22/16 09/22/16 09/22/16 07:50 07:50 12:00 WBC 17.8 H RBC 3.04 L Hgb 8.0 L Hct 24.7 L MCV MCH 26 L MCHC RDW 21.6 H Plt Count Lymph % (Auto) [place] % (Auto) Lymph # [place] # Baso # Seg Neutrophils % Seg Neuts % (Manual) Lymphocytes % (Manual) Monocytes % (Manual) Eosinophils % (Manual) Basophils % (Manual) Nucleated RBC % Seg Neutrophils # Seg Neutrophils # Man Lymphocytes # (Manual) Monocytes # (Manual) Eosinophils # (Manual) Basophils # (Manual) PT INR Fibrinogen dRVVT Confirm Interp Factor V Activity POC ABG pH POC ABG pCO2 POC ABG pO2 ABG pO2 ABG HCO3 ABG Base Excess ABG Hemoglobin Oxyhemoglobin Sodium 150 H Potassium Chloride 118.2 H Carbon Dioxide 14 L BUN 111 H Creatinine 3.7 H Glucose 157 H POC Glucose 183 H Lactic Acid Calcium Phosphorus Magnesium Direct Bilirubin AST ALT Alkaline Phosphatase Lactate Dehydrogenase Troponin T C-Reactive Protein Total Protein Albumin Prealbumin Triglycerides Cholesterol LDL Cholesterol Direct HDL Cholesterol Urine pH Urine WBC (Auto) Urine Creatinine Urine Total Protein Fluid Total Protein Vancomycin Trough Rheumatoid Factor Complement C4 Miscellaneous Test Crossmatch 09/22/16 09/22/16 09/23/16 17:29 23:10 05:00 WBC 19.2 H RBC 3.13 L Hgb 8.0 L Hct 25.2 L MCV MCH 26 L MCHC RDW 22.1 H Plt Count Lymph % (Auto) [place] % (Auto) Lymph # [place] # Baso # Seg Neutrophils % Seg Neuts % (Manual) 92.0 H Lymphocytes % (Manual) 3.0 L Monocytes % (Manual) Eosinophils % (Manual) Basophils % (Manual) Nucleated RBC % Seg Neutrophils # Seg Neutrophils # Man 17.7 H Lymphocytes # (Manual) 0.6 L Monocytes # (Manual) Eosinophils # (Manual) Basophils # (Manual) PT INR Fibrinogen dRVVT Confirm Interp Factor V Activity POC ABG pH POC ABG pCO2 POC ABG pO2 ABG pO2 ABG HCO3 ABG Base Excess ABG Hemoglobin Oxyhemoglobin Sodium Potassium Chloride Carbon Dioxide BUN Creatinine Glucose POC Glucose 197 H 169 H Lactic Acid Calcium Phosphorus Magnesium Direct Bilirubin AST ALT Alkaline Phosphatase Lactate Dehydrogenase Troponin T C-Reactive Protein Total Protein Albumin Prealbumin Triglycerides Cholesterol LDL Cholesterol Direct HDL Cholesterol Urine pH Urine WBC (Auto) Urine Creatinine Urine Total Protein Fluid Total Protein Vancomycin Trough Rheumatoid Factor Complement C4 Miscellaneous Test Crossmatch 09/23/16 09/23/16 09/23/16 05:00 05:00 05:10 WBC RBC Hgb Hct MCV MCH MCHC RDW Plt Count Lymph % (Auto) [place] % (Auto) Lymph # [place] # Baso # Seg Neutrophils % Seg Neuts % (Manual) Lymphocytes % (Manual) Monocytes % (Manual) Eosinophils % (Manual) Basophils % (Manual) Nucleated RBC % Seg Neutrophils # Seg Neutrophils # Man Lymphocytes # (Manual) Monocytes # (Manual) Eosinophils # (Manual) Basophils # (Manual) PT INR Fibrinogen dRVVT Confirm Interp Factor V Activity POC ABG pH POC ABG pCO2 POC ABG pO2 ABG pO2 ABG HCO3 ABG Base Excess ABG Hemoglobin Oxyhemoglobin Sodium 147 H Potassium 3.2 L Chloride 115.7 H Carbon Dioxide 13 L BUN 111 H Creatinine 3.8 H Glucose 194 H POC Glucose 188 H Lactic Acid Calcium 7.3 L D Phosphorus Magnesium Direct Bilirubin AST ALT Alkaline Phosphatase Lactate Dehydrogenase Troponin T C-Reactive Protein 3.20 H Total Protein Albumin Prealbumin Triglycerides Cholesterol LDL Cholesterol Direct HDL Cholesterol Urine pH Urine WBC (Auto) Urine Creatinine Urine Total Protein Fluid Total Protein Vancomycin Trough Rheumatoid Factor Complement C4 Miscellaneous Test Crossmatch 09/23/16 09/23/16 09/23/16 11:37 12:29 18:01 WBC RBC Hgb Hct MCV MCH MCHC RDW Plt Count Lymph % (Auto) [place] % (Auto) Lymph # [place] # Baso # Seg Neutrophils % Seg Neuts % (Manual) Lymphocytes % (Manual) Monocytes % (Manual) Eosinophils % (Manual) Basophils % (Manual) Nucleated RBC % Seg Neutrophils # Seg Neutrophils # Man Lymphocytes # (Manual) Monocytes # (Manual) Eosinophils # (Manual) Basophils # (Manual) PT INR Fibrinogen dRVVT Confirm Interp Factor V Activity POC ABG pH POC ABG pCO2 18.9 L POC ABG pO2 143 H ABG pO2 ABG HCO3 ABG Base Excess ABG Hemoglobin Oxyhemoglobin Sodium Potassium Chloride Carbon Dioxide BUN Creatinine Glucose POC Glucose 153 H 108 H Lactic Acid Calcium Phosphorus Magnesium Direct Bilirubin AST ALT Alkaline Phosphatase Lactate Dehydrogenase Troponin T C-Reactive Protein Total Protein Albumin Prealbumin Triglycerides Cholesterol LDL Cholesterol Direct HDL Cholesterol Urine pH Urine WBC (Auto) Urine Creatinine Urine Total Protein Fluid Total Protein Vancomycin Trough Rheumatoid Factor Complement C4 Miscellaneous Test Crossmatch 09/23/16 09/23/16 09/24/16 21:19 23:43 05:16 WBC RBC Hgb Hct MCV MCH MCHC RDW Plt Count Lymph % (Auto) [place] % (Auto) Lymph # [place] # Baso # Seg Neutrophils % Seg Neuts % (Manual) Lymphocytes % (Manual) Monocytes % (Manual) Eosinophils % (Manual) Basophils % (Manual) Nucleated RBC % Seg Neutrophils # Seg Neutrophils # Man Lymphocytes # (Manual) Monocytes # (Manual) Eosinophils # (Manual) Basophils # (Manual) PT INR Fibrinogen dRVVT Confirm Interp Factor V Activity POC ABG pH POC ABG pCO2 17.3 L POC ABG pO2 112 H ABG pO2 ABG HCO3 ABG Base Excess ABG Hemoglobin Oxyhemoglobin Sodium Potassium Chloride Carbon Dioxide BUN Creatinine Glucose POC Glucose 143 H 164 H Lactic Acid Calcium Phosphorus Magnesium Direct Bilirubin AST ALT Alkaline Phosphatase Lactate Dehydrogenase Troponin T C-Reactive Protein Total Protein Albumin Prealbumin Triglycerides Cholesterol LDL Cholesterol Direct HDL Cholesterol Urine pH Urine WBC (Auto) Urine Creatinine Urine Total Protein Fluid Total Protein Vancomycin Trough Rheumatoid Factor Complement C4 Miscellaneous Test Crossmatch 09/24/16 09/24/16 09/24/16 05:21 11:58 17:06 WBC RBC Hgb Hct MCV MCH MCHC RDW Plt Count Lymph % (Auto) [place] % (Auto) Lymph # [place] # Baso # Seg Neutrophils % Seg Neuts % (Manual) Lymphocytes % (Manual) Monocytes % (Manual) Eosinophils % (Manual) Basophils % (Manual) Nucleated RBC % Seg Neutrophils # Seg Neutrophils # Man Lymphocytes # (Manual) Monocytes # (Manual) Eosinophils # (Manual) Basophils # (Manual) PT INR Fibrinogen dRVVT Confirm Interp Factor V Activity POC ABG pH POC ABG pCO2 POC ABG pO2 ABG pO2 ABG HCO3 ABG Base Excess ABG Hemoglobin Oxyhemoglobin Sodium Potassium Chloride Carbon Dioxide 10 L BUN 103 H Creatinine 4.3 H Glucose 163 H POC Glucose 173 H 167 H Lactic Acid Calcium 6.5 L Phosphorus Magnesium Direct Bilirubin AST ALT Alkaline Phosphatase Lactate Dehydrogenase Troponin T C-Reactive Protein Total Protein Albumin Prealbumin Triglycerides Cholesterol LDL Cholesterol Direct HDL Cholesterol Urine pH Urine WBC (Auto) Urine Creatinine Urine Total Protein Fluid Total Protein Vancomycin Trough Rheumatoid Factor Complement C4 Miscellaneous Test Crossmatch 09/24/16 09/24/16 09/24/16 20:15 21:02 23:48 WBC RBC Hgb Hct MCV MCH MCHC RDW Plt Count Lymph % (Auto) [place] % (Auto) Lymph # [place] # Baso # Seg Neutrophils % Seg Neuts % (Manual) Lymphocytes % (Manual) Monocytes % (Manual) Eosinophils % (Manual) Basophils % (Manual) Nucleated RBC % Seg Neutrophils # Seg Neutrophils # Man Lymphocytes # (Manual) Monocytes # (Manual) Eosinophils # (Manual) Basophils # (Manual) PT INR Fibrinogen dRVVT Confirm Interp Factor V Activity POC ABG pH 7.288 L POC ABG pCO2 30.2 L 21.5 L POC ABG pO2 32 L 39 L ABG pO2 ABG HCO3 ABG Base Excess ABG Hemoglobin Oxyhemoglobin Sodium Potassium Chloride Carbon Dioxide BUN Creatinine Glucose POC Glucose 109 H Lactic Acid Calcium Phosphorus Magnesium Direct Bilirubin AST ALT Alkaline Phosphatase Lactate Dehydrogenase Troponin T C-Reactive Protein Total Protein Albumin Prealbumin Triglycerides Cholesterol LDL Cholesterol Direct HDL Cholesterol Urine pH Urine WBC (Auto) Urine Creatinine Urine Total Protein Fluid Total Protein Vancomycin Trough Rheumatoid Factor Complement C4 Miscellaneous Test Crossmatch 09/25/16 09/25/16 09/25/16 04:20 04:20 04:20 WBC RBC 2.58 L Hgb 7.0 L Hct 21.0 L MCV MCH 27 L MCHC RDW 23.8 H Plt Count Lymph % (Auto) [place] % (Auto) Lymph # [place] # Baso # Seg Neutrophils % Seg Neuts % (Manual) Lymphocytes % (Manual) 12.0 L Monocytes % (Manual) Eosinophils % (Manual) 7.0 H Basophils % (Manual) 2.0 H Nucleated RBC % Seg Neutrophils # Seg Neutrophils # Man Lymphocytes # (Manual) 0.9 L Monocytes # (Manual) Eosinophils # (Manual) 0.5 H Basophils # (Manual) PT INR Fibrinogen dRVVT Confirm Interp Factor V Activity POC ABG pH POC ABG pCO2 POC ABG pO2 ABG pO2 ABG HCO3 ABG Base Excess ABG Hemoglobin Oxyhemoglobin Sodium Potassium Chloride Carbon Dioxide 15 L BUN 72 H Creatinine 3.8 H Glucose POC Glucose Lactic Acid Calcium 6.0 L Phosphorus 4.60 H Magnesium 1.60 L Direct Bilirubin AST ALT Alkaline Phosphatase Lactate Dehydrogenase Troponin T C-Reactive Protein Total Protein Albumin Prealbumin Triglycerides Cholesterol LDL Cholesterol Direct HDL Cholesterol Urine pH Urine WBC (Auto) Urine Creatinine Urine Total Protein Fluid Total Protein Vancomycin Trough Rheumatoid Factor Complement C4 Miscellaneous Test Crossmatch 09/25/16 09/25/16 09/25/16 04:57 08:02 10:30 WBC RBC Hgb Hct MCV MCH MCHC RDW Plt Count Lymph % (Auto) [place] % (Auto) Lymph # [place] # Baso # Seg Neutrophils % Seg Neuts % (Manual) Lymphocytes % (Manual) Monocytes % (Manual) Eosinophils % (Manual) Basophils % (Manual) Nucleated RBC % Seg Neutrophils # Seg Neutrophils # Man Lymphocytes # (Manual) Monocytes # (Manual) Eosinophils # (Manual) Basophils # (Manual) PT INR Fibrinogen dRVVT Confirm Interp Factor V Activity POC ABG pH POC ABG pCO2 24.7 L POC ABG pO2 152 H ABG pO2 ABG HCO3 ABG Base Excess ABG Hemoglobin Oxyhemoglobin Sodium Potassium Chloride Carbon Dioxide BUN Creatinine Glucose POC Glucose 113 H Lactic Acid Calcium Phosphorus Magnesium Direct Bilirubin AST ALT Alkaline Phosphatase Lactate Dehydrogenase Troponin T C-Reactive Protein Total Protein Albumin Prealbumin Triglycerides Cholesterol LDL Cholesterol Direct HDL Cholesterol Urine pH Urine WBC (Auto) Urine Creatinine Urine Total Protein Fluid Total Protein Vancomycin Trough Rheumatoid Factor Complement C4 Miscellaneous Test Crossmatch See Detail 09/25/16 09/25/16 09/25/16 12:05 17:44 23:47 WBC RBC Hgb Hct MCV MCH MCHC RDW Plt Count Lymph % (Auto) [place] % (Auto) Lymph # [place] # Baso # Seg Neutrophils % Seg Neuts % (Manual) Lymphocytes % (Manual) Monocytes % (Manual) Eosinophils % (Manual) Basophils % (Manual) Nucleated RBC % Seg Neutrophils # Seg Neutrophils # Man Lymphocytes # (Manual) Monocytes # (Manual) Eosinophils # (Manual) Basophils # (Manual) PT INR Fibrinogen dRVVT Confirm Interp Factor V Activity POC ABG pH POC ABG pCO2 POC ABG pO2 ABG pO2 ABG HCO3 ABG Base Excess ABG Hemoglobin Oxyhemoglobin Sodium Potassium Chloride Carbon Dioxide BUN Creatinine Glucose POC Glucose 117 H 119 H 150 H Lactic Acid Calcium Phosphorus Magnesium Direct Bilirubin AST ALT Alkaline Phosphatase Lactate Dehydrogenase Troponin T C-Reactive Protein Total Protein Albumin Prealbumin Triglycerides Cholesterol LDL Cholesterol Direct HDL Cholesterol Urine pH Urine WBC (Auto) Urine Creatinine Urine Total Protein Fluid Total Protein Vancomycin Trough Rheumatoid Factor Complement C4 Miscellaneous Test Crossmatch 09/26/16 09/26/16 09/26/16 04:25 04:25 04:25 WBC RBC 2.65 L Hgb 7.4 L Hct 21.6 L MCV MCH MCHC RDW 22.5 H Plt Count Lymph % (Auto) [place] % (Auto) Lymph # [place] # Baso # Seg Neutrophils % Seg Neuts % (Manual) Lymphocytes % (Manual) 6.0 L Monocytes % (Manual) Eosinophils % (Manual) 11.0 H Basophils % (Manual) Nucleated RBC % Seg Neutrophils # Seg Neutrophils # Man Lymphocytes # (Manual) 0.4 L Monocytes # (Manual) Eosinophils # (Manual) 0.6 H Basophils # (Manual) PT INR Fibrinogen dRVVT Confirm Interp Factor V Activity POC ABG pH POC ABG pCO2 POC ABG pO2 ABG pO2 ABG HCO3 ABG Base Excess ABG Hemoglobin Oxyhemoglobin Sodium Potassium Chloride 97.0 L Carbon Dioxide 19 L BUN 43 H Creatinine 2.6 H Glucose 130 H POC Glucose Lactic Acid 4.40 H* Calcium 6.7 L Phosphorus Magnesium Direct Bilirubin AST ALT Alkaline Phosphatase Lactate Dehydrogenase Troponin T C-Reactive Protein Total Protein Albumin Prealbumin Triglycerides Cholesterol LDL Cholesterol Direct HDL Cholesterol Urine pH Urine WBC (Auto) Urine Creatinine Urine Total Protein Fluid Total Protein Vancomycin Trough Rheumatoid Factor Complement C4 Miscellaneous Test Crossmatch 09/26/16 09/26/16 09/26/16 05:20 11:44 12:12 WBC RBC Hgb Hct MCV MCH MCHC RDW Plt Count Lymph % (Auto) [place] % (Auto) Lymph # [place] # Baso # Seg Neutrophils % Seg Neuts % (Manual) Lymphocytes % (Manual) Monocytes % (Manual) Eosinophils % (Manual) Basophils % (Manual) Nucleated RBC % Seg Neutrophils # Seg Neutrophils # Man Lymphocytes # (Manual) Monocytes # (Manual) Eosinophils # (Manual) Basophils # (Manual) PT INR Fibrinogen dRVVT Confirm Interp Factor V Activity POC ABG pH POC ABG pCO2 27.0 L POC ABG pO2 69 L ABG pO2 ABG HCO3 ABG Base Excess ABG Hemoglobin Oxyhemoglobin Sodium Potassium Chloride Carbon Dioxide BUN Creatinine Glucose POC Glucose 121 H 128 H Lactic Acid Calcium Phosphorus Magnesium Direct Bilirubin AST ALT Alkaline Phosphatase Lactate Dehydrogenase Troponin T C-Reactive Protein Total Protein Albumin Prealbumin Triglycerides Cholesterol LDL Cholesterol Direct HDL Cholesterol Urine pH Urine WBC (Auto) Urine Creatinine Urine Total Protein Fluid Total Protein Vancomycin Trough Rheumatoid Factor Complement C4 Miscellaneous Test Crossmatch 09/26/16 09/26/16 09/27/16 18:31 23:40 08:20 WBC RBC Hgb Hct MCV MCH MCHC RDW Plt Count Lymph % (Auto) [place] % (Auto) Lymph # [place] # Baso # Seg Neutrophils % Seg Neuts % (Manual) Lymphocytes % (Manual) Monocytes % (Manual) Eosinophils % (Manual) Basophils % (Manual) Nucleated RBC % Seg Neutrophils # Seg Neutrophils # Man Lymphocytes # (Manual) Monocytes # (Manual) Eosinophils # (Manual) Basophils # (Manual) PT INR Fibrinogen dRVVT Confirm Interp Factor V Activity POC ABG pH POC ABG pCO2 POC ABG pO2 ABG pO2 ABG HCO3 ABG Base Excess ABG Hemoglobin Oxyhemoglobin Sodium Potassium Chloride Carbon Dioxide BUN Creatinine Glucose POC Glucose 120 H 133 H Lactic Acid 4.10 H* Calcium Phosphorus Magnesium Direct Bilirubin AST ALT Alkaline Phosphatase Lactate Dehydrogenase Troponin T C-Reactive Protein Total Protein Albumin Prealbumin Triglycerides Cholesterol LDL Cholesterol Direct HDL Cholesterol Urine pH Urine WBC (Auto) Urine Creatinine Urine Total Protein Fluid Total Protein Vancomycin Trough Rheumatoid Factor Complement C4 Miscellaneous Test Crossmatch 09/27/16 09/27/16 09/27/16 11:23 15:00 18:15 WBC RBC Hgb Hct MCV MCH MCHC RDW Plt Count Lymph % (Auto) [place] % (Auto) Lymph # [place] # Baso # Seg Neutrophils % Seg Neuts % (Manual) Lymphocytes % (Manual) Monocytes % (Manual) Eosinophils % (Manual) Basophils % (Manual) Nucleated RBC % Seg Neutrophils # Seg Neutrophils # Man Lymphocytes # (Manual) Monocytes # (Manual) Eosinophils # (Manual) Basophils # (Manual) PT INR Fibrinogen dRVVT Confirm Interp Factor V Activity POC ABG pH 7.459 H POC ABG pCO2 27.1 L POC ABG pO2 140 H ABG pO2 ABG HCO3 ABG Base Excess ABG Hemoglobin Oxyhemoglobin Sodium Potassium Chloride Carbon Dioxide BUN Creatinine Glucose POC Glucose 114 H 127 H Lactic Acid Calcium Phosphorus Magnesium Direct Bilirubin AST ALT Alkaline Phosphatase Lactate Dehydrogenase Troponin T C-Reactive Protein Total Protein Albumin Prealbumin Triglycerides Cholesterol LDL Cholesterol Direct HDL Cholesterol Urine pH Urine WBC (Auto) Urine Creatinine Urine Total Protein Fluid Total Protein Vancomycin Trough Rheumatoid Factor Complement C4 Miscellaneous Test Crossmatch 09/27/16 09/27/16 09/28/16 Unknown Unknown 03:45 WBC RBC 2.49 L Hgb 6.8 L Hct 20.7 L MCV MCH 27 L MCHC RDW 22.1 H Plt Count Lymph % (Auto) [place] % (Auto) Lymph # [place] # Baso # Seg Neutrophils % Seg Neuts % (Manual) 32.0 L Lymphocytes % (Manual) 12.0 L Monocytes % (Manual) 11.0 H Eosinophils % (Manual) 10.0 H Basophils % (Manual) Nucleated RBC % Seg Neutrophils # Seg Neutrophils # Man Lymphocytes # (Manual) 1.0 L Monocytes # (Manual) 0.9 H Eosinophils # (Manual) 0.8 H Basophils # (Manual) PT INR Fibrinogen dRVVT Confirm Interp Factor V Activity POC ABG pH POC ABG pCO2 POC ABG pO2 ABG pO2 ABG HCO3 ABG Base Excess ABG Hemoglobin Oxyhemoglobin Sodium 135 L 135 L Potassium 3.5 L Chloride 93.6 L 94.4 L Carbon Dioxide 17 L 21 L BUN 45 H 28 H Creatinine 3.3 H 2.5 H Glucose 106 H POC Glucose Lactic Acid Calcium 7.3 L 7.1 L Phosphorus Magnesium Direct Bilirubin AST ALT Alkaline Phosphatase Lactate Dehydrogenase Troponin T C-Reactive Protein Total Protein Albumin Prealbumin Triglycerides Cholesterol LDL Cholesterol Direct HDL Cholesterol Urine pH Urine WBC (Auto) Urine Creatinine Urine Total Protein Fluid Total Protein Vancomycin Trough Rheumatoid Factor Complement C4 Miscellaneous Test Crossmatch 09/28/16 09/28/16 09/28/16 03:45 07:25 11:58 WBC 13.3 H RBC 3.01 L Hgb 8.4 L Hct 25.0 L MCV MCH MCHC RDW 20.5 H Plt Count 128 L Lymph % (Auto) [place] % (Auto) Lymph # [place] # Baso # Seg Neutrophils % Seg Neuts % (Manual) Lymphocytes % (Manual) 7.0 L Monocytes % (Manual) Eosinophils % (Manual) 6.0 H Basophils % (Manual) Nucleated RBC % Seg Neutrophils # Seg Neutrophils # Man Lymphocytes # (Manual) 0.9 L Monocytes # (Manual) Eosinophils # (Manual) 0.8 H Basophils # (Manual) PT INR Fibrinogen dRVVT Confirm Interp Factor V Activity POC ABG pH POC ABG pCO2 POC ABG pO2 ABG pO2 ABG HCO3 ABG Base Excess ABG Hemoglobin Oxyhemoglobin Sodium Potassium Chloride Carbon Dioxide BUN Creatinine Glucose POC Glucose 121 H Lactic Acid 4.50 H* Calcium Phosphorus Magnesium Direct Bilirubin AST ALT Alkaline Phosphatase Lactate Dehydrogenase Troponin T C-Reactive Protein Total Protein Albumin Prealbumin Triglycerides Cholesterol LDL Cholesterol Direct HDL Cholesterol Urine pH Urine WBC (Auto) Urine Creatinine Urine Total Protein Fluid Total Protein Vancomycin Trough Rheumatoid Factor Complement C4 Miscellaneous Test Crossmatch 09/29/16 09/29/16 09/29/16 06:45 06:45 06:45 WBC 14.9 H RBC 2.74 L Hgb 7.6 L Hct 23.2 L MCV MCH MCHC RDW 20.5 H Plt Count 81 L Lymph % (Auto) [place] % (Auto) Lymph # [place] # Baso # Seg Neutrophils % Seg Neuts % (Manual) 81.0 H Lymphocytes % (Manual) 4.0 L Monocytes % (Manual) Eosinophils % (Manual) Basophils % (Manual) Nucleated RBC % Seg Neutrophils # Seg Neutrophils # Man 12.1 H Lymphocytes # (Manual) 0.6 L Monocytes # (Manual) Eosinophils # (Manual) Basophils # (Manual) PT INR Fibrinogen dRVVT Confirm Interp Factor V Activity POC ABG pH POC ABG pCO2 POC ABG pO2 ABG pO2 ABG HCO3 ABG Base Excess ABG Hemoglobin Oxyhemoglobin Sodium 133 L Potassium 3.4 L Chloride 92.5 L Carbon Dioxide 21 L BUN 33 H Creatinine 3.0 H Glucose POC Glucose Lactic Acid Calcium 6.6 L Phosphorus Magnesium 1.40 L Direct Bilirubin 0.9 H AST ALT Alkaline Phosphatase Lactate Dehydrogenase Troponin T C-Reactive Protein Total Protein 4.3 L Albumin 1.3 L Prealbumin Triglycerides Cholesterol LDL Cholesterol Direct HDL Cholesterol Urine pH Urine WBC (Auto) Urine Creatinine Urine Total Protein Fluid Total Protein Vancomycin Trough Rheumatoid Factor Complement C4 Miscellaneous Test Crossmatch 09/29/16 09/29/16 09/30/16 17:52 20:12 00:07 WBC RBC Hgb Hct MCV MCH MCHC RDW Plt Count Lymph % (Auto) [place] % (Auto) Lymph # [place] # Baso # Seg Neutrophils % Seg Neuts % (Manual) Lymphocytes % (Manual) Monocytes % (Manual) Eosinophils % (Manual) Basophils % (Manual) Nucleated RBC % Seg Neutrophils # Seg Neutrophils # Man Lymphocytes # (Manual) Monocytes # (Manual) Eosinophils # (Manual) Basophils # (Manual) PT INR Fibrinogen dRVVT Confirm Interp Factor V Activity POC ABG pH POC ABG pCO2 POC ABG pO2 ABG pO2 ABG HCO3 ABG Base Excess ABG Hemoglobin Oxyhemoglobin Sodium Potassium Chloride Carbon Dioxide BUN Creatinine Glucose POC Glucose 50 L 51 L Lactic Acid Calcium Phosphorus Magnesium Direct Bilirubin AST ALT Alkaline Phosphatase Lactate Dehydrogenase Troponin T 0.204 H* C-Reactive Protein Total Protein Albumin Prealbumin Triglycerides Cholesterol 31 L LDL Cholesterol Direct 4 L HDL Cholesterol 3 L Urine pH Urine WBC (Auto) Urine Creatinine Urine Total Protein Fluid Total Protein Vancomycin Trough Rheumatoid Factor Complement C4 Miscellaneous Test Crossmatch 09/30/16 09/30/16 09/30/16 01:30 05:15 06:10 WBC RBC Hgb Hct MCV MCH MCHC RDW Plt Count Lymph % (Auto) [place] % (Auto) Lymph # [place] # Baso # Seg Neutrophils % Seg Neuts % (Manual) Lymphocytes % (Manual) Monocytes % (Manual) Eosinophils % (Manual) Basophils % (Manual) Nucleated RBC % Seg Neutrophils # Seg Neutrophils # Man Lymphocytes # (Manual) Monocytes # (Manual) Eosinophils # (Manual) Basophils # (Manual) PT INR Fibrinogen dRVVT Confirm Interp Factor V Activity POC ABG pH POC ABG pCO2 POC ABG pO2 ABG pO2 ABG HCO3 ABG Base Excess ABG Hemoglobin Oxyhemoglobin Sodium 133 L Potassium 3.2 L Chloride 93.2 L Carbon Dioxide 19 L BUN 36 H Creatinine 3.2 H Glucose 104 H POC Glucose 167 H 146 H Lactic Acid Calcium 6.4 L Phosphorus Magnesium 1.60 L Direct Bilirubin AST ALT Alkaline Phosphatase Lactate Dehydrogenase Troponin T C-Reactive Protein Total Protein Albumin Prealbumin Triglycerides Cholesterol LDL Cholesterol Direct HDL Cholesterol Urine pH Urine WBC (Auto) Urine Creatinine Urine Total Protein Fluid Total Protein Vancomycin Trough Rheumatoid Factor Complement C4 Miscellaneous Test Crossmatch 09/30/16 09/30/16 09/30/16 11:26 13:39 18:38 WBC RBC Hgb Hct MCV MCH MCHC RDW Plt Count Lymph % (Auto) [place] % (Auto) Lymph # [place] # Baso # Seg Neutrophils % Seg Neuts % (Manual) Lymphocytes % (Manual) Monocytes % (Manual) Eosinophils % (Manual) Basophils % (Manual) Nucleated RBC % Seg Neutrophils # Seg Neutrophils # Man Lymphocytes # (Manual) Monocytes # (Manual) Eosinophils # (Manual) Basophils # (Manual) PT INR Fibrinogen dRVVT Confirm Interp Factor V Activity POC ABG pH 7.479 H POC ABG pCO2 29.8 L POC ABG pO2 117 H ABG pO2 ABG HCO3 ABG Base Excess ABG Hemoglobin Oxyhemoglobin Sodium Potassium Chloride Carbon Dioxide BUN Creatinine Glucose POC Glucose 140 H 122 H Lactic Acid Calcium Phosphorus Magnesium Direct Bilirubin AST ALT Alkaline Phosphatase Lactate Dehydrogenase Troponin T C-Reactive Protein Total Protein Albumin Prealbumin Triglycerides Cholesterol LDL Cholesterol Direct HDL Cholesterol Urine pH Urine WBC (Auto) Urine Creatinine Urine Total Protein Fluid Total Protein Vancomycin Trough Rheumatoid Factor Complement C4 Miscellaneous Test Crossmatch 10/01/16 10/01/16 10/01/16 06:00 06:00 12:37 WBC 12.6 H RBC 2.75 L Hgb 7.3 L Hct 23.3 L MCV MCH 27 L MCHC RDW 20.6 H Plt Count 72 L Lymph % (Auto) [place] % (Auto) Lymph # [place] # Baso # Seg Neutrophils % Seg Neuts % (Manual) 31.0 L Lymphocytes % (Manual) 8.0 L Monocytes % (Manual) Eosinophils % (Manual) Basophils % (Manual) Nucleated RBC % 3.0 H Seg Neutrophils # Seg Neutrophils # Man Lymphocytes # (Manual) 1.0 L Monocytes # (Manual) Eosinophils # (Manual) Basophils # (Manual) PT INR Fibrinogen dRVVT Confirm Interp Factor V Activity POC ABG pH POC ABG pCO2 POC ABG pO2 ABG pO2 ABG HCO3 ABG Base Excess ABG Hemoglobin Oxyhemoglobin Sodium 127 L Potassium Chloride 86.8 L Carbon Dioxide 20 L BUN 42 H Creatinine 3.5 H Glucose POC Glucose 65 L Lactic Acid Calcium 7.0 L Phosphorus Magnesium Direct Bilirubin AST ALT Alkaline Phosphatase Lactate Dehydrogenase Troponin T C-Reactive Protein Total Protein Albumin Prealbumin Triglycerides Cholesterol LDL Cholesterol Direct HDL Cholesterol Urine pH Urine WBC (Auto) Urine Creatinine Urine Total Protein Fluid Total Protein Vancomycin Trough Rheumatoid Factor Complement C4 Miscellaneous Test Crossmatch 10/01/16 10/01/16 10/02/16 17:39 23:32 00:59 WBC RBC Hgb Hct MCV MCH MCHC RDW Plt Count Lymph % (Auto) [place] % (Auto) Lymph # [place] # Baso # Seg Neutrophils % Seg Neuts % (Manual) Lymphocytes % (Manual) Monocytes % (Manual) Eosinophils % (Manual) Basophils % (Manual) Nucleated RBC % Seg Neutrophils # Seg Neutrophils # Man Lymphocytes # (Manual) Monocytes # (Manual) Eosinophils # (Manual) Basophils # (Manual) PT INR Fibrinogen dRVVT Confirm Interp Factor V Activity POC ABG pH POC ABG pCO2 POC ABG pO2 ABG pO2 ABG HCO3 ABG Base Excess ABG Hemoglobin Oxyhemoglobin Sodium Potassium Chloride Carbon Dioxide BUN Creatinine Glucose POC Glucose 107 H 52 L 145 H Lactic Acid Calcium Phosphorus Magnesium Direct Bilirubin AST ALT Alkaline Phosphatase Lactate Dehydrogenase Troponin T C-Reactive Protein Total Protein Albumin Prealbumin Triglycerides Cholesterol LDL Cholesterol Direct HDL Cholesterol Urine pH Urine WBC (Auto) Urine Creatinine Urine Total Protein Fluid Total Protein Vancomycin Trough Rheumatoid Factor Complement C4 Miscellaneous Test Crossmatch 10/02/16 10/02/16 10/02/16 10:30 10:50 10:50 WBC 14.7 H RBC 2.76 L Hgb 7.4 L Hct 23.6 L MCV MCH 27 L MCHC RDW 20.2 H Plt Count 79 L Lymph % (Auto) [place] % (Auto) Lymph # [place] # Baso # Seg Neutrophils % Seg Neuts % (Manual) 86.0 H Lymphocytes % (Manual) 6.0 L Monocytes % (Manual) Eosinophils % (Manual) Basophils % (Manual) Nucleated RBC % Seg Neutrophils # Seg Neutrophils # Man 12.6 H Lymphocytes # (Manual) 0.9 L Monocytes # (Manual) Eosinophils # (Manual) Basophils # (Manual) PT INR Fibrinogen dRVVT Confirm Interp Factor V Activity POC ABG pH 7.486 H POC ABG pCO2 30.1 L POC ABG pO2 108 H ABG pO2 ABG HCO3 ABG Base Excess ABG Hemoglobin Oxyhemoglobin Sodium 131 L Potassium 3.4 L Chloride 89.9 L Carbon Dioxide BUN 26 H Creatinine 2.6 H Glucose POC Glucose Lactic Acid Calcium 7.0 L Phosphorus Magnesium Direct Bilirubin AST ALT Alkaline Phosphatase Lactate Dehydrogenase Troponin T C-Reactive Protein Total Protein Albumin Prealbumin Triglycerides Cholesterol LDL Cholesterol Direct HDL Cholesterol Urine pH Urine WBC (Auto) Urine Creatinine Urine Total Protein Fluid Total Protein Vancomycin Trough Rheumatoid Factor Complement C4 Miscellaneous Test Crossmatch 10/02/16 10/03/16 10/03/16 23:45 00:45 05:10 WBC 12.9 H RBC 2.77 L Hgb 7.6 L Hct 23.7 L MCV MCH 27 L MCHC RDW 19.7 H Plt Count 89 L Lymph % (Auto) [place] % (Auto) Lymph # [place] # Baso # Seg Neutrophils % Seg Neuts % (Manual) Lymphocytes % (Manual) 8.0 L Monocytes % (Manual) Eosinophils % (Manual) Basophils % (Manual) Nucleated RBC % Seg Neutrophils # 11.9 H Seg Neutrophils # Man Lymphocytes # (Manual) 1.0 L Monocytes # (Manual) Eosinophils # (Manual) Basophils # (Manual) PT INR Fibrinogen dRVVT Confirm Interp Factor V Activity POC ABG pH POC ABG pCO2 POC ABG pO2 ABG pO2 ABG HCO3 ABG Base Excess ABG Hemoglobin Oxyhemoglobin Sodium Potassium Chloride Carbon Dioxide BUN Creatinine Glucose POC Glucose 55 L 199 H Lactic Acid Calcium Phosphorus Magnesium Direct Bilirubin AST ALT Alkaline Phosphatase Lactate Dehydrogenase Troponin T C-Reactive Protein Total Protein Albumin Prealbumin Triglycerides Cholesterol LDL Cholesterol Direct HDL Cholesterol Urine pH Urine WBC (Auto) Urine Creatinine Urine Total Protein Fluid Total Protein Vancomycin Trough Rheumatoid Factor Complement C4 Miscellaneous Test Crossmatch 10/03/16 10/03/16 10/03/16 05:10 12:14 13:18 WBC RBC Hgb Hct MCV MCH MCHC RDW Plt Count Lymph % (Auto) [place] % (Auto) Lymph # [place] # Baso # Seg Neutrophils % Seg Neuts % (Manual) Lymphocytes % (Manual) Monocytes % (Manual) Eosinophils % (Manual) Basophils % (Manual) Nucleated RBC % Seg Neutrophils # Seg Neutrophils # Man Lymphocytes # (Manual) Monocytes # (Manual) Eosinophils # (Manual) Basophils # (Manual) PT INR Fibrinogen dRVVT Confirm Interp Factor V Activity POC ABG pH POC ABG pCO2 POC ABG pO2 ABG pO2 ABG HCO3 ABG Base Excess ABG Hemoglobin Oxyhemoglobin Sodium 129 L Potassium 3.3 L Chloride 88.8 L Carbon Dioxide 20 L BUN 29 H Creatinine 2.8 H Glucose POC Glucose 68 L 127 H Lactic Acid Calcium 7.2 L Phosphorus Magnesium Direct Bilirubin AST ALT Alkaline Phosphatase Lactate Dehydrogenase Troponin T C-Reactive Protein Total Protein Albumin Prealbumin Triglycerides Cholesterol LDL Cholesterol Direct HDL Cholesterol Urine pH Urine WBC (Auto) Urine Creatinine Urine Total Protein Fluid Total Protein Vancomycin Trough Rheumatoid Factor Complement C4 Miscellaneous Test Crossmatch 10/03/16 10/03/16 10/03/16 14:42 18:21 19:09 WBC RBC Hgb Hct MCV MCH MCHC RDW Plt Count Lymph % (Auto) [place] % (Auto) Lymph # [place] # Baso # Seg Neutrophils % Seg Neuts % (Manual) Lymphocytes % (Manual) Monocytes % (Manual) Eosinophils % (Manual) Basophils % (Manual) Nucleated RBC % Seg Neutrophils # Seg Neutrophils # Man Lymphocytes # (Manual) Monocytes # (Manual) Eosinophils # (Manual) Basophils # (Manual) PT INR Fibrinogen dRVVT Confirm Interp Factor V Activity POC ABG pH 7.499 H POC ABG pCO2 28.4 L POC ABG pO2 44 L ABG pO2 ABG HCO3 ABG Base Excess ABG Hemoglobin Oxyhemoglobin Sodium Potassium Chloride Carbon Dioxide BUN Creatinine Glucose POC Glucose 64 L 205 H Lactic Acid Calcium Phosphorus Magnesium Direct Bilirubin AST ALT Alkaline Phosphatase Lactate Dehydrogenase Troponin T C-Reactive Protein Total Protein Albumin Prealbumin Triglycerides Cholesterol LDL Cholesterol Direct HDL Cholesterol Urine pH Urine WBC (Auto) Urine Creatinine Urine Total Protein Fluid Total Protein Vancomycin Trough Rheumatoid Factor Complement C4 Miscellaneous Test Crossmatch 10/03/16 10/04/16 10/04/16 23:33 04:18 06:30 WBC RBC 2.54 L Hgb 7.1 L Hct 21.7 L MCV MCH MCHC RDW 19.5 H Plt Count 76 L Lymph % (Auto) [place] % (Auto) Lymph # [place] # Baso # Seg Neutrophils % Seg Neuts % (Manual) 88.0 H Lymphocytes % (Manual) 6.0 L Monocytes % (Manual) Eosinophils % (Manual) Basophils % (Manual) Nucleated RBC % Seg Neutrophils # Seg Neutrophils # Man 8.8 H Lymphocytes # (Manual) 0.6 L Monocytes # (Manual) Eosinophils # (Manual) Basophils # (Manual) PT INR Fibrinogen dRVVT Confirm Interp Factor V Activity POC ABG pH 7.461 H POC ABG pCO2 33.6 L POC ABG pO2 211 H ABG pO2 ABG HCO3 ABG Base Excess ABG Hemoglobin Oxyhemoglobin Sodium Potassium Chloride Carbon Dioxide BUN Creatinine Glucose POC Glucose 136 H Lactic Acid Calcium Phosphorus Magnesium Direct Bilirubin AST ALT Alkaline Phosphatase Lactate Dehydrogenase Troponin T C-Reactive Protein Total Protein Albumin Prealbumin Triglycerides Cholesterol LDL Cholesterol Direct HDL Cholesterol Urine pH Urine WBC (Auto) Urine Creatinine Urine Total Protein Fluid Total Protein Vancomycin Trough Rheumatoid Factor Complement C4 Miscellaneous Test Crossmatch 10/04/16 10/04/16 10/04/16 06:30 11:45 17:54 WBC RBC Hgb Hct MCV MCH MCHC RDW Plt Count Lymph % (Auto) [place] % (Auto) Lymph # [place] # Baso # Seg Neutrophils % Seg Neuts % (Manual) Lymphocytes % (Manual) Monocytes % (Manual) Eosinophils % (Manual) Basophils % (Manual) Nucleated RBC % Seg Neutrophils # Seg Neutrophils # Man Lymphocytes # (Manual) Monocytes # (Manual) Eosinophils # (Manual) Basophils # (Manual) PT INR Fibrinogen dRVVT Confirm Interp Factor V Activity POC ABG pH POC ABG pCO2 POC ABG pO2 ABG pO2 ABG HCO3 ABG Base Excess ABG Hemoglobin Oxyhemoglobin Sodium 128 L Potassium Chloride 87.4 L Carbon Dioxide 20 L BUN 34 H Creatinine 2.9 H Glucose 127 H POC Glucose 158 H 160 H Lactic Acid Calcium 7.4 L Phosphorus Magnesium Direct Bilirubin AST ALT Alkaline Phosphatase Lactate Dehydrogenase Troponin T C-Reactive Protein Total Protein Albumin Prealbumin Triglycerides Cholesterol LDL Cholesterol Direct HDL Cholesterol Urine pH Urine WBC (Auto) Urine Creatinine Urine Total Protein Fluid Total Protein Vancomycin Trough Rheumatoid Factor Complement C4 Miscellaneous Test Crossmatch 10/04/16 10/05/16 10/05/16 23:25 04:30 05:00 WBC RBC 2.64 L Hgb 7.5 L Hct 22.6 L MCV MCH MCHC RDW 19.3 H Plt Count 80 L Lymph % (Auto) [place] % (Auto) Lymph # [place] # Baso # Seg Neutrophils % Seg Neuts % (Manual) Lymphocytes % (Manual) 12.0 L Monocytes % (Manual) Eosinophils % (Manual) Basophils % (Manual) Nucleated RBC % Seg Neutrophils # Seg Neutrophils # Man Lymphocytes # (Manual) Monocytes # (Manual) Eosinophils # (Manual) Basophils # (Manual) PT INR Fibrinogen dRVVT Confirm Interp Factor V Activity POC ABG pH 7.475 H POC ABG pCO2 33.3 L POC ABG pO2 140 H ABG pO2 ABG HCO3 ABG Base Excess ABG Hemoglobin Oxyhemoglobin Sodium Potassium Chloride Carbon Dioxide BUN Creatinine Glucose POC Glucose 141 H Lactic Acid Calcium Phosphorus Magnesium Direct Bilirubin AST ALT Alkaline Phosphatase Lactate Dehydrogenase Troponin T C-Reactive Protein Total Protein Albumin Prealbumin Triglycerides Cholesterol LDL Cholesterol Direct HDL Cholesterol Urine pH Urine WBC (Auto) Urine Creatinine Urine Total Protein Fluid Total Protein Vancomycin Trough Rheumatoid Factor Complement C4 Miscellaneous Test Crossmatch 10/05/16 10/05/16 10/05/16 05:00 05:09 12:58 WBC RBC Hgb Hct MCV MCH MCHC RDW Plt Count Lymph % (Auto) [place] % (Auto) Lymph # [place] # Baso # Seg Neutrophils % Seg Neuts % (Manual) Lymphocytes % (Manual) Monocytes % (Manual) Eosinophils % (Manual) Basophils % (Manual) Nucleated RBC % Seg Neutrophils # Seg Neutrophils # Man Lymphocytes # (Manual) Monocytes # (Manual) Eosinophils # (Manual) Basophils # (Manual) PT INR Fibrinogen dRVVT Confirm Interp Factor V Activity POC ABG pH POC ABG pCO2 POC ABG pO2 ABG pO2 ABG HCO3 ABG Base Excess ABG Hemoglobin Oxyhemoglobin Sodium 131 L Potassium Chloride 94.0 L Carbon Dioxide 20 L BUN 22 H Creatinine 2.0 H Glucose 123 H POC Glucose 166 H 179 H Lactic Acid Calcium 7.7 L Phosphorus 2.20 L D Magnesium Direct Bilirubin AST ALT Alkaline Phosphatase Lactate Dehydrogenase Troponin T C-Reactive Protein Total Protein Albumin Prealbumin Triglycerides Cholesterol LDL Cholesterol Direct HDL Cholesterol Urine pH Urine WBC (Auto) Urine Creatinine Urine Total Protein Fluid Total Protein Vancomycin Trough Rheumatoid Factor Complement C4 Miscellaneous Test Crossmatch 10/05/16 10/05/16 10/05/16 15:50 18:53 23:12 WBC RBC Hgb Hct MCV MCH MCHC RDW Plt Count Lymph % (Auto) [place] % (Auto) Lymph # [place] # Baso # Seg Neutrophils % Seg Neuts % (Manual) Lymphocytes % (Manual) Monocytes % (Manual) Eosinophils % (Manual) Basophils % (Manual) Nucleated RBC % Seg Neutrophils # Seg Neutrophils # Man Lymphocytes # (Manual) Monocytes # (Manual) Eosinophils # (Manual) Basophils # (Manual) PT INR Fibrinogen dRVVT Confirm Interp Factor V Activity POC ABG pH POC ABG pCO2 POC ABG pO2 ABG pO2 ABG HCO3 ABG Base Excess ABG Hemoglobin Oxyhemoglobin Sodium Potassium Chloride Carbon Dioxide BUN Creatinine Glucose POC Glucose 150 H 164 H Lactic Acid Calcium Phosphorus Magnesium Direct Bilirubin AST ALT Alkaline Phosphatase Lactate Dehydrogenase Troponin T C-Reactive Protein Total Protein Albumin Prealbumin Triglycerides Cholesterol LDL Cholesterol Direct HDL Cholesterol Urine pH Urine WBC (Auto) Urine Creatinine Urine Total Protein Fluid Total Protein Vancomycin Trough Rheumatoid Factor Complement C4 Miscellaneous Test Crossmatch See Detail 10/06/16 10/06/16 10/06/16 03:50 03:50 04:53 WBC RBC 3.00 L Hgb 8.6 L Hct 25.8 L MCV MCH MCHC RDW 17.9 H Plt Count 65 L Lymph % (Auto) [place] % (Auto) Lymph # [place] # Baso # Seg Neutrophils % Seg Neuts % (Manual) 30.0 L Lymphocytes % (Manual) 5.0 L Monocytes % (Manual) Eosinophils % (Manual) Basophils % (Manual) Nucleated RBC % Seg Neutrophils # Seg Neutrophils # Man Lymphocytes # (Manual) 0.4 L Monocytes # (Manual) Eosinophils # (Manual) Basophils # (Manual) PT INR Fibrinogen dRVVT Confirm Interp Factor V Activity POC ABG pH 7.310 L POC ABG pCO2 49.0 H POC ABG pO2 ABG pO2 ABG HCO3 ABG Base Excess ABG Hemoglobin Oxyhemoglobin Sodium 133 L Potassium Chloride 95.9 L Carbon Dioxide BUN 26 H Creatinine 2.0 H Glucose 116 H POC Glucose Lactic Acid Calcium 7.8 L Phosphorus Magnesium Direct Bilirubin AST ALT Alkaline Phosphatase Lactate Dehydrogenase Troponin T C-Reactive Protein Total Protein Albumin Prealbumin Triglycerides Cholesterol LDL Cholesterol Direct HDL Cholesterol Urine pH Urine WBC (Auto) Urine Creatinine Urine Total Protein Fluid Total Protein Vancomycin Trough Rheumatoid Factor Complement C4 Miscellaneous Test Crossmatch 10/06/16 10/06/16 10/06/16 05:23 11:52 18:34 WBC RBC Hgb Hct MCV MCH MCHC RDW Plt Count Lymph % (Auto) [place] % (Auto) Lymph # [place] # Baso # Seg Neutrophils % Seg Neuts % (Manual) Lymphocytes % (Manual) Monocytes % (Manual) Eosinophils % (Manual) Basophils % (Manual) Nucleated RBC % Seg Neutrophils # Seg Neutrophils # Man Lymphocytes # (Manual) Monocytes # (Manual) Eosinophils # (Manual) Basophils # (Manual) PT INR Fibrinogen dRVVT Confirm Interp Factor V Activity POC ABG pH POC ABG pCO2 POC ABG pO2 ABG pO2 ABG HCO3 ABG Base Excess ABG Hemoglobin Oxyhemoglobin Sodium Potassium Chloride Carbon Dioxide BUN Creatinine Glucose POC Glucose 126 H 116 H 129 H Lactic Acid Calcium Phosphorus Magnesium Direct Bilirubin AST ALT Alkaline Phosphatase Lactate Dehydrogenase Troponin T C-Reactive Protein Total Protein Albumin Prealbumin Triglycerides Cholesterol LDL Cholesterol Direct HDL Cholesterol Urine pH Urine WBC (Auto) Urine Creatinine Urine Total Protein Fluid Total Protein Vancomycin Trough Rheumatoid Factor Complement C4 Miscellaneous Test Crossmatch 10/07/16 10/07/16 10/07/16 03:45 05:00 10:00 WBC 17.0 H RBC 2.68 L Hgb 7.3 L Hct 25.3 L MCV MCH 27 L MCHC 29 L RDW 19.6 H Plt Count 74 L Lymph % (Auto) [place] % (Auto) Lymph # [place] # Baso # Seg Neutrophils % Seg Neuts % (Manual) Lymphocytes % (Manual) 12.0 L Monocytes % (Manual) Eosinophils % (Manual) Basophils % (Manual) Nucleated RBC % 4.0 H Seg Neutrophils # Seg Neutrophils # Man 10.7 H Lymphocytes # (Manual) Monocytes # (Manual) Eosinophils # (Manual) Basophils # (Manual) PT INR Fibrinogen dRVVT Confirm Interp Factor V Activity POC ABG pH POC ABG pCO2 POC ABG pO2 ABG pO2 ABG HCO3 ABG Base Excess ABG Hemoglobin Oxyhemoglobin Sodium 130 L Potassium 3.2 L Chloride 93.9 L Carbon Dioxide 20 L BUN 44 H Creatinine 2.7 H Glucose 129 H POC Glucose Lactic Acid Calcium 7.4 L Phosphorus Magnesium Direct Bilirubin AST ALT 6 L Alkaline Phosphatase 195 H Lactate Dehydrogenase Troponin T C-Reactive Protein Total Protein 4.9 L Albumin 1.0 L Prealbumin Triglycerides Cholesterol LDL Cholesterol Direct HDL Cholesterol Urine pH Urine WBC (Auto) Urine Creatinine Urine Total Protein Fluid Total Protein Vancomycin Trough Rheumatoid Factor Complement C4 Miscellaneous Test Flexitest 1 H Crossmatch 10/07/16 10/07/16 10/07/16 10:00 11:24 18:10 WBC RBC Hgb Hct MCV MCH MCHC RDW Plt Count Lymph % (Auto) [place] % (Auto) Lymph # [place] # Baso # Seg Neutrophils % Seg Neuts % (Manual) Lymphocytes % (Manual) Monocytes % (Manual) Eosinophils % (Manual) Basophils % (Manual) Nucleated RBC % Seg Neutrophils # Seg Neutrophils # Man Lymphocytes # (Manual) Monocytes # (Manual) Eosinophils # (Manual) Basophils # (Manual) PT INR Fibrinogen dRVVT Confirm Interp Factor V Activity POC ABG pH POC ABG pCO2 POC ABG pO2 ABG pO2 ABG HCO3 ABG Base Excess ABG Hemoglobin Oxyhemoglobin Sodium Potassium Chloride Carbon Dioxide BUN Creatinine Glucose POC Glucose 116 H 130 H Lactic Acid Calcium Phosphorus Magnesium Direct Bilirubin AST ALT Alkaline Phosphatase Lactate Dehydrogenase Troponin T C-Reactive Protein 19.40 H Total Protein Albumin Prealbumin Triglycerides Cholesterol LDL Cholesterol Direct HDL Cholesterol Urine pH Urine WBC (Auto) Urine Creatinine Urine Total Protein Fluid Total Protein Vancomycin Trough Rheumatoid Factor Complement C4 Miscellaneous Test Crossmatch 10/07/16 10/08/16 10/08/16 18:30 00:00 04:00 WBC RBC Hgb Hct MCV MCH MCHC RDW Plt Count Lymph % (Auto) [place] % (Auto) Lymph # [place] # Baso # Seg Neutrophils % Seg Neuts % (Manual) Lymphocytes % (Manual) Monocytes % (Manual) Eosinophils % (Manual) Basophils % (Manual) Nucleated RBC % Seg Neutrophils # Seg Neutrophils # Man Lymphocytes # (Manual) Monocytes # (Manual) Eosinophils # (Manual) Basophils # (Manual) PT INR Fibrinogen dRVVT Confirm Interp Factor V Activity POC ABG pH POC ABG pCO2 POC ABG pO2 ABG pO2 ABG HCO3 ABG Base Excess ABG Hemoglobin Oxyhemoglobin Sodium 132 L Potassium 3.3 L Chloride 93.6 L Carbon Dioxide 17 L BUN 59 H Creatinine 2.7 H Glucose 121 H POC Glucose 122 H Lactic Acid Calcium 7.6 L Phosphorus Magnesium Direct Bilirubin AST ALT Alkaline Phosphatase Lactate Dehydrogenase Troponin T C-Reactive Protein Total Protein Albumin Prealbumin Triglycerides Cholesterol LDL Cholesterol Direct HDL Cholesterol Urine pH Urine WBC (Auto) > 182.0 H Urine Creatinine Urine Total Protein Fluid Total Protein Vancomycin Trough Rheumatoid Factor Complement C4 Miscellaneous Test Crossmatch 10/08/16 10/08/16 10/08/16 04:30 05:30 11:51 WBC RBC 5.15 H Hgb 14.4 H D Hct 44.5 H D MCV MCH MCHC RDW 19.5 H Plt Count 56 L Lymph % (Auto) [place] % (Auto) Lymph # [place] # Baso # Seg Neutrophils % Seg Neuts % (Manual) 24.0 L Lymphocytes % (Manual) 8.0 L Monocytes % (Manual) Eosinophils % (Manual) Basophils % (Manual) Nucleated RBC % 9.0 H Seg Neutrophils # Seg Neutrophils # Man Lymphocytes # (Manual) 0.7 L Monocytes # (Manual) Eosinophils # (Manual) Basophils # (Manual) PT INR Fibrinogen dRVVT Confirm Interp Factor V Activity POC ABG pH POC ABG pCO2 POC ABG pO2 ABG pO2 ABG HCO3 ABG Base Excess ABG Hemoglobin Oxyhemoglobin Sodium Potassium Chloride Carbon Dioxide BUN Creatinine Glucose POC Glucose 125 H 150 H Lactic Acid Calcium Phosphorus Magnesium Direct Bilirubin AST ALT Alkaline Phosphatase Lactate Dehydrogenase Troponin T C-Reactive Protein Total Protein Albumin Prealbumin Triglycerides Cholesterol LDL Cholesterol Direct HDL Cholesterol Urine pH Urine WBC (Auto) Urine Creatinine Urine Total Protein Fluid Total Protein Vancomycin Trough Rheumatoid Factor Complement C4 Miscellaneous Test Crossmatch 10/08/16 10/08/16 10/08/16 12:49 17:07 19:30 WBC RBC Hgb 7.1 L D Hct 22.4 L D MCV MCH MCHC RDW Plt Count Lymph % (Auto) [place] % (Auto) Lymph # [place] # Baso # Seg Neutrophils % Seg Neuts % (Manual) Lymphocytes % (Manual) Monocytes % (Manual) Eosinophils % (Manual) Basophils % (Manual) Nucleated RBC % Seg Neutrophils # Seg Neutrophils # Man Lymphocytes # (Manual) Monocytes # (Manual) Eosinophils # (Manual) Basophils # (Manual) PT INR Fibrinogen dRVVT Confirm Interp Factor V Activity POC ABG pH POC ABG pCO2 28.2 L POC ABG pO2 111 H ABG pO2 ABG HCO3 ABG Base Excess ABG Hemoglobin Oxyhemoglobin Sodium Potassium Chloride Carbon Dioxide BUN Creatinine Glucose POC Glucose 145 H Lactic Acid Calcium Phosphorus Magnesium Direct Bilirubin AST ALT Alkaline Phosphatase Lactate Dehydrogenase Troponin T C-Reactive Protein Total Protein Albumin Prealbumin Triglycerides Cholesterol LDL Cholesterol Direct HDL Cholesterol Urine pH Urine WBC (Auto) Urine Creatinine Urine Total Protein Fluid Total Protein Vancomycin Trough Rheumatoid Factor Complement C4 Miscellaneous Test Crossmatch 10/08/16 10/09/16 10/09/16 19:30 03:45 03:45 WBC 12.6 H RBC 2.36 L Hgb 6.7 L Hct 21.1 L MCV MCH MCHC RDW 19.5 H Plt Count 75 L Lymph % (Auto) [place] % (Auto) Lymph # [place] # Baso # Seg Neutrophils % Seg Neuts % (Manual) Lymphocytes % (Manual) Monocytes % (Manual) 10.0 H Eosinophils % (Manual) Basophils % (Manual) Nucleated RBC % 3.0 H Seg Neutrophils # Seg Neutrophils # Man Lymphocytes # (Manual) Monocytes # (Manual) 1.3 H Eosinophils # (Manual) Basophils # (Manual) PT 18.0 H INR 1.41 H Fibrinogen dRVVT Confirm Interp Factor V Activity POC ABG pH POC ABG pCO2 POC ABG pO2 ABG pO2 ABG HCO3 ABG Base Excess ABG Hemoglobin Oxyhemoglobin Sodium 135 L Potassium Chloride Carbon Dioxide 17 L BUN 81 H Creatinine 3.2 H Glucose 109 H POC Glucose Lactic Acid Calcium 7.4 L Phosphorus 4.60 H D Magnesium Direct Bilirubin AST ALT Alkaline Phosphatase Lactate Dehydrogenase Troponin T C-Reactive Protein Total Protein Albumin Prealbumin Triglycerides Cholesterol LDL Cholesterol Direct HDL Cholesterol Urine pH Urine WBC (Auto) Urine Creatinine Urine Total Protein Fluid Total Protein Vancomycin Trough Rheumatoid Factor Complement C4 Miscellaneous Test Crossmatch 10/09/16 10/09/16 10/09/16 03:45 05:14 07:20 WBC RBC Hgb Hct MCV MCH MCHC RDW Plt Count Lymph % (Auto) [place] % (Auto) Lymph # [place] # Baso # Seg Neutrophils % Seg Neuts % (Manual) Lymphocytes % (Manual) Monocytes % (Manual) Eosinophils % (Manual) Basophils % (Manual) Nucleated RBC % Seg Neutrophils # Seg Neutrophils # Man Lymphocytes # (Manual) Monocytes # (Manual) Eosinophils # (Manual) Basophils # (Manual) PT 19.0 H INR 1.51 H Fibrinogen dRVVT Confirm Interp Factor V Activity POC ABG pH POC ABG pCO2 POC ABG pO2 ABG pO2 ABG HCO3 ABG Base Excess ABG Hemoglobin Oxyhemoglobin Sodium Potassium Chloride Carbon Dioxide BUN Creatinine Glucose POC Glucose 151 H Lactic Acid Calcium Phosphorus Magnesium Direct Bilirubin AST ALT Alkaline Phosphatase Lactate Dehydrogenase Troponin T C-Reactive Protein Total Protein Albumin Prealbumin Triglycerides Cholesterol LDL Cholesterol Direct HDL Cholesterol Urine pH Urine WBC (Auto) Urine Creatinine Urine Total Protein Fluid Total Protein Vancomycin Trough Rheumatoid Factor Complement C4 Miscellaneous Test Crossmatch See Detail 10/09/16 10/09/16 10/09/16 11:46 16:20 16:43 WBC RBC Hgb 7.2 L Hct 22.2 L MCV MCH MCHC RDW Plt Count Lymph % (Auto) [place] % (Auto) Lymph # [place] # Baso # Seg Neutrophils % Seg Neuts % (Manual) Lymphocytes % (Manual) Monocytes % (Manual) Eosinophils % (Manual) Basophils % (Manual) Nucleated RBC % Seg Neutrophils # Seg Neutrophils # Man Lymphocytes # (Manual) Monocytes # (Manual) Eosinophils # (Manual) Basophils # (Manual) PT INR Fibrinogen dRVVT Confirm Interp Factor V Activity POC ABG pH POC ABG pCO2 POC ABG pO2 ABG pO2 ABG HCO3 ABG Base Excess ABG Hemoglobin Oxyhemoglobin Sodium Potassium Chloride Carbon Dioxide BUN Creatinine Glucose POC Glucose 133 H 141 H Lactic Acid Calcium Phosphorus Magnesium Direct Bilirubin AST ALT Alkaline Phosphatase Lactate Dehydrogenase Troponin T C-Reactive Protein Total Protein Albumin Prealbumin Triglycerides Cholesterol LDL Cholesterol Direct HDL Cholesterol Urine pH Urine WBC (Auto) Urine Creatinine Urine Total Protein Fluid Total Protein Vancomycin Trough Rheumatoid Factor Complement C4 Miscellaneous Test Crossmatch 10/10/16 10/10/16 10/10/16 05:00 05:00 11:19 WBC 18.5 H RBC 2.19 L Hgb 6.4 L Hct 19.6 L* MCV MCH MCHC RDW 19.3 H Plt Count 93 L Lymph % (Auto) [place] % (Auto) Lymph # [place] # Baso # Seg Neutrophils % Seg Neuts % (Manual) Lymphocytes % (Manual) 10.0 L Monocytes % (Manual) Eosinophils % (Manual) Basophils % (Manual) Nucleated RBC % 4.0 H Seg Neutrophils # Seg Neutrophils # Man 11.3 H Lymphocytes # (Manual) Monocytes # (Manual) Eosinophils # (Manual) Basophils # (Manual) PT INR Fibrinogen dRVVT Confirm Interp Factor V Activity POC ABG pH POC ABG pCO2 POC ABG pO2 ABG pO2 ABG HCO3 ABG Base Excess ABG Hemoglobin Oxyhemoglobin Sodium Potassium 5.7 H D Chloride Carbon Dioxide 16 L BUN 94 H Creatinine 3.1 H Glucose 131 H POC Glucose 153 H Lactic Acid Calcium 8.2 L Phosphorus 5.10 H Magnesium 2.40 H Direct Bilirubin 0.3 H AST ALT < 5 L Alkaline Phosphatase 319 H Lactate Dehydrogenase Troponin T C-Reactive Protein Total Protein 5.1 L Albumin 1.0 L Prealbumin Triglycerides Cholesterol LDL Cholesterol Direct HDL Cholesterol Urine pH Urine WBC (Auto) Urine Creatinine Urine Total Protein Fluid Total Protein Vancomycin Trough Rheumatoid Factor Complement C4 Miscellaneous Test Crossmatch 10/10/16 10/10/16 10/11/16 17:50 23:30 04:15 WBC RBC Hgb Hct MCV MCH MCHC RDW Plt Count Lymph % (Auto) [place] % (Auto) Lymph # [place] # Baso # Seg Neutrophils % Seg Neuts % (Manual) Lymphocytes % (Manual) Monocytes % (Manual) Eosinophils % (Manual) Basophils % (Manual) Nucleated RBC % Seg Neutrophils # Seg Neutrophils # Man Lymphocytes # (Manual) Monocytes # (Manual) Eosinophils # (Manual) Basophils # (Manual) PT INR Fibrinogen dRVVT Confirm Interp Factor V Activity POC ABG pH POC ABG pCO2 POC ABG pO2 ABG pO2 ABG HCO3 ABG Base Excess ABG Hemoglobin Oxyhemoglobin Sodium Potassium Chloride 96.4 L Carbon Dioxide 21 L BUN 57 H Creatinine 2.1 H Glucose 151 H POC Glucose 146 H 141 H Lactic Acid Calcium 8.3 L Phosphorus Magnesium Direct Bilirubin AST ALT Alkaline Phosphatase Lactate Dehydrogenase Troponin T C-Reactive Protein Total Protein Albumin Prealbumin Triglycerides Cholesterol LDL Cholesterol Direct HDL Cholesterol Urine pH Urine WBC (Auto) Urine Creatinine Urine Total Protein Fluid Total Protein Vancomycin Trough Rheumatoid Factor Complement C4 Miscellaneous Test Crossmatch 10/11/16 10/11/16 10/11/16 04:15 04:15 05:30 WBC 28.3 H RBC 3.12 L Hgb 9.3 L Hct 28.7 L D MCV MCH MCHC RDW 17.7 H Plt Count 128 L Lymph % (Auto) [place] % (Auto) Lymph # [place] # Baso # Seg Neutrophils % Seg Neuts % (Manual) Lymphocytes % (Manual) Monocytes % (Manual) Eosinophils % (Manual) Basophils % (Manual) Nucleated RBC % Seg Neutrophils # Seg Neutrophils # Man Lymphocytes # (Manual) Monocytes # (Manual) Eosinophils # (Manual) Basophils # (Manual) PT INR Fibrinogen dRVVT Confirm Interp Factor V Activity POC ABG pH POC ABG pCO2 POC ABG pO2 ABG pO2 ABG HCO3 ABG Base Excess ABG Hemoglobin Oxyhemoglobin Sodium Potassium Chloride Carbon Dioxide BUN Creatinine Glucose POC Glucose 167 H Lactic Acid Calcium Phosphorus Magnesium Direct Bilirubin AST ALT Alkaline Phosphatase Lactate Dehydrogenase Troponin T C-Reactive Protein 15.80 H Total Protein Albumin Prealbumin Triglycerides Cholesterol LDL Cholesterol Direct HDL Cholesterol Urine pH Urine WBC (Auto) Urine Creatinine Urine Total Protein Fluid Total Protein Vancomycin Trough Rheumatoid Factor Complement C4 Miscellaneous Test Crossmatch 10/11/16 10/11/16 10/11/16 11:40 15:49 23:57 WBC RBC Hgb Hct MCV MCH MCHC RDW Plt Count Lymph % (Auto) [place] % (Auto) Lymph # [place] # Baso # Seg Neutrophils % Seg Neuts % (Manual) Lymphocytes % (Manual) Monocytes % (Manual) Eosinophils % (Manual) Basophils % (Manual) Nucleated RBC % Seg Neutrophils # Seg Neutrophils # Man Lymphocytes # (Manual) Monocytes # (Manual) Eosinophils # (Manual) Basophils # (Manual) PT INR Fibrinogen dRVVT Confirm Interp Factor V Activity POC ABG pH POC ABG pCO2 POC ABG pO2 ABG pO2 ABG HCO3 ABG Base Excess ABG Hemoglobin Oxyhemoglobin Sodium Potassium Chloride Carbon Dioxide BUN Creatinine Glucose POC Glucose 139 H 168 H 161 H Lactic Acid Calcium Phosphorus Magnesium Direct Bilirubin AST ALT Alkaline Phosphatase Lactate Dehydrogenase Troponin T C-Reactive Protein Total Protein Albumin Prealbumin Triglycerides Cholesterol LDL Cholesterol Direct HDL Cholesterol Urine pH Urine WBC (Auto) Urine Creatinine Urine Total Protein Fluid Total Protein Vancomycin Trough Rheumatoid Factor Complement C4 Miscellaneous Test Crossmatch 10/12/16 10/12/16 10/12/16 04:40 04:40 05:44 WBC 22.5 H RBC 2.88 L Hgb 8.8 L Hct 26.8 L MCV MCH MCHC RDW 17.8 H Plt Count Lymph % (Auto) [place] % (Auto) Lymph # [place] # Baso # Seg Neutrophils % Seg Neuts % (Manual) Lymphocytes % (Manual) Monocytes % (Manual) Eosinophils % (Manual) Basophils % (Manual) Nucleated RBC % Seg Neutrophils # Seg Neutrophils # Man Lymphocytes # (Manual) Monocytes # (Manual) Eosinophils # (Manual) Basophils # (Manual) PT INR Fibrinogen dRVVT Confirm Interp Factor V Activity POC ABG pH POC ABG pCO2 POC ABG pO2 ABG pO2 ABG HCO3 ABG Base Excess ABG Hemoglobin Oxyhemoglobin Sodium 134 L Potassium Chloride 93.0 L Carbon Dioxide BUN 74 H Creatinine 2.5 H Glucose 137 H POC Glucose 158 H Lactic Acid Calcium 8.2 L Phosphorus Magnesium Direct Bilirubin AST ALT Alkaline Phosphatase Lactate Dehydrogenase Troponin T C-Reactive Protein Total Protein Albumin Prealbumin Triglycerides Cholesterol LDL Cholesterol Direct HDL Cholesterol Urine pH Urine WBC (Auto) Urine Creatinine Urine Total Protein Fluid Total Protein Vancomycin Trough Rheumatoid Factor Complement C4 Miscellaneous Test Crossmatch 10/12/16 10/12/16 10/12/16 12:27 18:18 23:46 WBC RBC Hgb Hct MCV MCH MCHC RDW Plt Count Lymph % (Auto) [place] % (Auto) Lymph # [place] # Baso # Seg Neutrophils % Seg Neuts % (Manual) Lymphocytes % (Manual) Monocytes % (Manual) Eosinophils % (Manual) Basophils % (Manual) Nucleated RBC % Seg Neutrophils # Seg Neutrophils # Man Lymphocytes # (Manual) Monocytes # (Manual) Eosinophils # (Manual) Basophils # (Manual) PT INR Fibrinogen dRVVT Confirm Interp Factor V Activity POC ABG pH POC ABG pCO2 POC ABG pO2 ABG pO2 ABG HCO3 ABG Base Excess ABG Hemoglobin Oxyhemoglobin Sodium Potassium Chloride Carbon Dioxide BUN Creatinine Glucose POC Glucose 153 H 140 H 150 H Lactic Acid Calcium Phosphorus Magnesium Direct Bilirubin AST ALT Alkaline Phosphatase Lactate Dehydrogenase Troponin T C-Reactive Protein Total Protein Albumin Prealbumin Triglycerides Cholesterol LDL Cholesterol Direct HDL Cholesterol Urine pH Urine WBC (Auto) Urine Creatinine Urine Total Protein Fluid Total Protein Vancomycin Trough Rheumatoid Factor Complement C4 Miscellaneous Test Crossmatch 10/13/16 10/13/16 10/13/16 06:22 09:20 12:29 WBC RBC Hgb Hct MCV MCH MCHC RDW Plt Count Lymph % (Auto) [place] % (Auto) Lymph # [place] # Baso # Seg Neutrophils % Seg Neuts % (Manual) Lymphocytes % (Manual) Monocytes % (Manual) Eosinophils % (Manual) Basophils % (Manual) Nucleated RBC % Seg Neutrophils # Seg Neutrophils # Man Lymphocytes # (Manual) Monocytes # (Manual) Eosinophils # (Manual) Basophils # (Manual) PT INR Fibrinogen dRVVT Confirm Interp Factor V Activity POC ABG pH POC ABG pCO2 POC ABG pO2 ABG pO2 ABG HCO3 ABG Base Excess ABG Hemoglobin Oxyhemoglobin Sodium Potassium Chloride Carbon Dioxide BUN Creatinine Glucose POC Glucose 165 H 193 H Lactic Acid Calcium Phosphorus Magnesium Direct Bilirubin AST ALT Alkaline Phosphatase Lactate Dehydrogenase Troponin T C-Reactive Protein Total Protein Albumin Prealbumin Triglycerides Cholesterol LDL Cholesterol Direct HDL Cholesterol Urine pH Urine WBC (Auto) Urine Creatinine Urine Total Protein Fluid Total Protein Vancomycin Trough Rheumatoid Factor Complement C4 Miscellaneous Test Flexitest 1 H Crossmatch 10/13/16 10/13/16 10/13/16 18:09 Unknown Unknown WBC 23.4 H RBC 2.83 L Hgb 8.7 L Hct 26.1 L MCV MCH MCHC RDW 18.1 H Plt Count Lymph % (Auto) [place] % (Auto) Lymph # [place] # Baso # Seg Neutrophils % Seg Neuts % (Manual) Lymphocytes % (Manual) Monocytes % (Manual) Eosinophils % (Manual) Basophils % (Manual) Nucleated RBC % Seg Neutrophils # Seg Neutrophils # Man Lymphocytes # (Manual) Monocytes # (Manual) Eosinophils # (Manual) Basophils # (Manual) PT INR Fibrinogen dRVVT Confirm Interp Factor V Activity POC ABG pH POC ABG pCO2 POC ABG pO2 ABG pO2 ABG HCO3 ABG Base Excess ABG Hemoglobin Oxyhemoglobin Sodium Potassium Chloride 95.8 L Carbon Dioxide BUN 82 H Creatinine 2.6 H Glucose 152 H POC Glucose 166 H Lactic Acid Calcium Phosphorus Magnesium Direct Bilirubin AST ALT Alkaline Phosphatase Lactate Dehydrogenase Troponin T C-Reactive Protein Total Protein Albumin Prealbumin Triglycerides Cholesterol LDL Cholesterol Direct HDL Cholesterol Urine pH Urine WBC (Auto) Urine Creatinine Urine Total Protein Fluid Total Protein Vancomycin Trough Rheumatoid Factor Complement C4 Miscellaneous Test Crossmatch 10/14/16 10/14/16 10/14/16 05:38 06:35 08:10 WBC 20.7 H RBC 2.81 L Hgb 8.4 L Hct 27.2 L MCV MCH MCHC RDW 19.4 H Plt Count Lymph % (Auto) [place] % (Auto) Lymph # [place] # Baso # Seg Neutrophils % Seg Neuts % (Manual) Lymphocytes % (Manual) Monocytes % (Manual) Eosinophils % (Manual) Basophils % (Manual) Nucleated RBC % Seg Neutrophils # Seg Neutrophils # Man Lymphocytes # (Manual) Monocytes # (Manual) Eosinophils # (Manual) Basophils # (Manual) PT INR Fibrinogen dRVVT Confirm Interp Factor V Activity POC ABG pH POC ABG pCO2 POC ABG pO2 ABG pO2 ABG HCO3 ABG Base Excess ABG Hemoglobin Oxyhemoglobin Sodium Potassium Chloride Carbon Dioxide BUN 58 H Creatinine 1.9 H Glucose 169 H POC Glucose 195 H Lactic Acid Calcium Phosphorus Magnesium Direct Bilirubin AST ALT Alkaline Phosphatase Lactate Dehydrogenase Troponin T C-Reactive Protein Total Protein Albumin Prealbumin Triglycerides Cholesterol LDL Cholesterol Direct HDL Cholesterol Urine pH Urine WBC (Auto) Urine Creatinine Urine Total Protein Fluid Total Protein Vancomycin Trough Rheumatoid Factor Complement C4 Miscellaneous Test Crossmatch 10/14/16 10/14/16 10/14/16 11:44 17:13 23:28 WBC RBC Hgb Hct MCV MCH MCHC RDW Plt Count Lymph % (Auto) [place] % (Auto) Lymph # [place] # Baso # Seg Neutrophils % Seg Neuts % (Manual) Lymphocytes % (Manual) Monocytes % (Manual) Eosinophils % (Manual) Basophils % (Manual) Nucleated RBC % Seg Neutrophils # Seg Neutrophils # Man Lymphocytes # (Manual) Monocytes # (Manual) Eosinophils # (Manual) Basophils # (Manual) PT INR Fibrinogen dRVVT Confirm Interp Factor V Activity POC ABG pH POC ABG pCO2 POC ABG pO2 ABG pO2 ABG HCO3 ABG Base Excess ABG Hemoglobin Oxyhemoglobin Sodium Potassium Chloride Carbon Dioxide BUN Creatinine Glucose POC Glucose 174 H 121 H 151 H Lactic Acid Calcium Phosphorus Magnesium Direct Bilirubin AST ALT Alkaline Phosphatase Lactate Dehydrogenase Troponin T C-Reactive Protein Total Protein Albumin Prealbumin Triglycerides Cholesterol LDL Cholesterol Direct HDL Cholesterol Urine pH Urine WBC (Auto) Urine Creatinine Urine Total Protein Fluid Total Protein Vancomycin Trough Rheumatoid Factor Complement C4 Miscellaneous Test Crossmatch 10/15/16 10/15/16 10/15/16 05:06 12:26 17:48 WBC RBC Hgb Hct MCV MCH MCHC RDW Plt Count Lymph % (Auto) [place] % (Auto) Lymph # [place] # Baso # Seg Neutrophils % Seg Neuts % (Manual) Lymphocytes % (Manual) Monocytes % (Manual) Eosinophils % (Manual) Basophils % (Manual) Nucleated RBC % Seg Neutrophils # Seg Neutrophils # Man Lymphocytes # (Manual) Monocytes # (Manual) Eosinophils # (Manual) Basophils # (Manual) PT INR Fibrinogen dRVVT Confirm Interp Factor V Activity POC ABG pH POC ABG pCO2 POC ABG pO2 ABG pO2 ABG HCO3 ABG Base Excess ABG Hemoglobin Oxyhemoglobin Sodium Potassium Chloride Carbon Dioxide BUN Creatinine Glucose POC Glucose 151 H 149 H 153 H Lactic Acid Calcium Phosphorus Magnesium Direct Bilirubin AST ALT Alkaline Phosphatase Lactate Dehydrogenase Troponin T C-Reactive Protein Total Protein Albumin Prealbumin Triglycerides Cholesterol LDL Cholesterol Direct HDL Cholesterol Urine pH Urine WBC (Auto) Urine Creatinine Urine Total Protein Fluid Total Protein Vancomycin Trough Rheumatoid Factor Complement C4 Miscellaneous Test Crossmatch 10/15/16 10/15/16 10/16/16 Unknown Unknown 00:02 WBC 23.4 H RBC 2.78 L Hgb 8.5 L Hct 25.7 L MCV MCH MCHC RDW 18.7 H Plt Count Lymph % (Auto) [place] % (Auto) Lymph # [place] # Baso # Seg Neutrophils % Seg Neuts % (Manual) Lymphocytes % (Manual) Monocytes % (Manual) Eosinophils % (Manual) Basophils % (Manual) Nucleated RBC % Seg Neutrophils # Seg Neutrophils # Man Lymphocytes # (Manual) Monocytes # (Manual) Eosinophils # (Manual) Basophils # (Manual) PT INR Fibrinogen dRVVT Confirm Interp Factor V Activity POC ABG pH POC ABG pCO2 POC ABG pO2 ABG pO2 ABG HCO3 ABG Base Excess ABG Hemoglobin Oxyhemoglobin Sodium Potassium Chloride Carbon Dioxide BUN 73 H Creatinine 2.3 H Glucose 120 H POC Glucose 137 H Lactic Acid Calcium Phosphorus Magnesium Direct Bilirubin AST ALT Alkaline Phosphatase Lactate Dehydrogenase Troponin T C-Reactive Protein Total Protein Albumin Prealbumin Triglycerides Cholesterol LDL Cholesterol Direct HDL Cholesterol Urine pH Urine WBC (Auto) Urine Creatinine Urine Total Protein Fluid Total Protein Vancomycin Trough Rheumatoid Factor Complement C4 Miscellaneous Test Crossmatch 10/16/16 10/16/16 10/16/16 05:44 06:25 06:25 WBC 22.5 H RBC 2.76 L Hgb 8.3 L Hct 25.2 L MCV MCH MCHC RDW 18.3 H Plt Count Lymph % (Auto) [place] % (Auto) Lymph # [place] # Baso # Seg Neutrophils % Seg Neuts % (Manual) Lymphocytes % (Manual) Monocytes % (Manual) Eosinophils % (Manual) Basophils % (Manual) Nucleated RBC % Seg Neutrophils # Seg Neutrophils # Man Lymphocytes # (Manual) Monocytes # (Manual) Eosinophils # (Manual) Basophils # (Manual) PT INR Fibrinogen dRVVT Confirm Interp Factor V Activity POC ABG pH POC ABG pCO2 POC ABG pO2 ABG pO2 ABG HCO3 ABG Base Excess ABG Hemoglobin Oxyhemoglobin Sodium Potassium Chloride Carbon Dioxide BUN 92 H Creatinine 3.0 H Glucose 138 H POC Glucose 110 H Lactic Acid Calcium Phosphorus Magnesium Direct Bilirubin AST ALT Alkaline Phosphatase Lactate Dehydrogenase Troponin T C-Reactive Protein Total Protein Albumin Prealbumin Triglycerides Cholesterol LDL Cholesterol Direct HDL Cholesterol Urine pH Urine WBC (Auto) Urine Creatinine Urine Total Protein Fluid Total Protein Vancomycin Trough Rheumatoid Factor Complement C4 Miscellaneous Test Crossmatch 10/16/16 10/16/16 10/16/16 11:27 11:48 17:36 WBC RBC Hgb Hct MCV MCH MCHC RDW Plt Count Lymph % (Auto) [place] % (Auto) Lymph # [place] # Baso # Seg Neutrophils % Seg Neuts % (Manual) Lymphocytes % (Manual) Monocytes % (Manual) Eosinophils % (Manual) Basophils % (Manual) Nucleated RBC % Seg Neutrophils # Seg Neutrophils # Man Lymphocytes # (Manual) Monocytes # (Manual) Eosinophils # (Manual) Basophils # (Manual) PT INR Fibrinogen dRVVT Confirm Interp Factor V Activity POC ABG pH 7.582 H POC ABG pCO2 27.4 L POC ABG pO2 110 H ABG pO2 ABG HCO3 ABG Base Excess ABG Hemoglobin Oxyhemoglobin Sodium Potassium Chloride Carbon Dioxide BUN Creatinine Glucose POC Glucose 121 H 133 H Lactic Acid Calcium Phosphorus Magnesium Direct Bilirubin AST ALT Alkaline Phosphatase Lactate Dehydrogenase Troponin T C-Reactive Protein Total Protein Albumin Prealbumin Triglycerides Cholesterol LDL Cholesterol Direct HDL Cholesterol Urine pH Urine WBC (Auto) Urine Creatinine Urine Total Protein Fluid Total Protein Vancomycin Trough Rheumatoid Factor Complement C4 Miscellaneous Test Crossmatch 10/16/16 10/17/16 10/17/16 20:48 04:24 04:24 WBC 21.4 H RBC 2.72 L Hgb 8.0 L Hct 25.2 L MCV MCH MCHC RDW 18.0 H Plt Count Lymph % (Auto) [place] % (Auto) Lymph # [place] # Baso # Seg Neutrophils % Seg Neuts % (Manual) Lymphocytes % (Manual) Monocytes % (Manual) Eosinophils % (Manual) Basophils % (Manual) Nucleated RBC % Seg Neutrophils # Seg Neutrophils # Man Lymphocytes # (Manual) Monocytes # (Manual) Eosinophils # (Manual) Basophils # (Manual) PT INR Fibrinogen dRVVT Confirm Interp Factor V Activity POC ABG pH 7.561 H POC ABG pCO2 24.4 L POC ABG pO2 77 L ABG pO2 ABG HCO3 ABG Base Excess ABG Hemoglobin Oxyhemoglobin Sodium 148 H Potassium Chloride Carbon Dioxide BUN 104 H Creatinine 3.0 H Glucose 149 H POC Glucose Lactic Acid Calcium Phosphorus Magnesium Direct Bilirubin AST ALT Alkaline Phosphatase 138 H Lactate Dehydrogenase Troponin T C-Reactive Protein Total Protein 6.2 L Albumin 1.5 L Prealbumin Triglycerides Cholesterol LDL Cholesterol Direct HDL Cholesterol Urine pH Urine WBC (Auto) Urine Creatinine Urine Total Protein Fluid Total Protein Vancomycin Trough Rheumatoid Factor Complement C4 Miscellaneous Test Crossmatch 10/17/16 10/17/16 10/17/16 06:02 12:17 17:14 WBC RBC Hgb Hct MCV MCH MCHC RDW Plt Count Lymph % (Auto) [place] % (Auto) Lymph # [place] # Baso # Seg Neutrophils % Seg Neuts % (Manual) Lymphocytes % (Manual) Monocytes % (Manual) Eosinophils % (Manual) Basophils % (Manual) Nucleated RBC % Seg Neutrophils # Seg Neutrophils # Man Lymphocytes # (Manual) Monocytes # (Manual) Eosinophils # (Manual) Basophils # (Manual) PT INR Fibrinogen dRVVT Confirm Interp Factor V Activity POC ABG pH POC ABG pCO2 POC ABG pO2 ABG pO2 ABG HCO3 ABG Base Excess ABG Hemoglobin Oxyhemoglobin Sodium Potassium Chloride Carbon Dioxide BUN Creatinine Glucose POC Glucose 170 H 167 H 126 H Lactic Acid Calcium Phosphorus Magnesium Direct Bilirubin AST ALT Alkaline Phosphatase Lactate Dehydrogenase Troponin T C-Reactive Protein Total Protein Albumin Prealbumin Triglycerides Cholesterol LDL Cholesterol Direct HDL Cholesterol Urine pH Urine WBC (Auto) Urine Creatinine Urine Total Protein Fluid Total Protein Vancomycin Trough Rheumatoid Factor Complement C4 Miscellaneous Test Crossmatch 10/17/16 10/18/16 10/18/16 23:17 04:00 04:00 WBC 20.7 H RBC 2.47 L Hgb 7.4 L Hct 22.9 L MCV MCH MCHC RDW 17.5 H Plt Count Lymph % (Auto) [place] % (Auto) Lymph # [place] # Baso # Seg Neutrophils % Seg Neuts % (Manual) Lymphocytes % (Manual) Monocytes % (Manual) Eosinophils % (Manual) Basophils % (Manual) Nucleated RBC % Seg Neutrophils # Seg Neutrophils # Man Lymphocytes # (Manual) Monocytes # (Manual) Eosinophils # (Manual) Basophils # (Manual) PT INR Fibrinogen dRVVT Confirm Interp Factor V Activity POC ABG pH POC ABG pCO2 POC ABG pO2 ABG pO2 ABG HCO3 ABG Base Excess ABG Hemoglobin Oxyhemoglobin Sodium 149 H Potassium Chloride 107.9 H Carbon Dioxide 20 L BUN 117 H Creatinine 3.2 H Glucose 119 H POC Glucose 121 H Lactic Acid Calcium Phosphorus Magnesium Direct Bilirubin AST ALT Alkaline Phosphatase Lactate Dehydrogenase Troponin T C-Reactive Protein Total Protein Albumin Prealbumin Triglycerides Cholesterol LDL Cholesterol Direct HDL Cholesterol Urine pH Urine WBC (Auto) Urine Creatinine Urine Total Protein Fluid Total Protein Vancomycin Trough Rheumatoid Factor Complement C4 Miscellaneous Test Crossmatch 10/18/16 10/18/16 10/18/16 05:23 10:46 17:30 WBC RBC Hgb Hct MCV MCH MCHC RDW Plt Count Lymph % (Auto) [place] % (Auto) Lymph # [place] # Baso # Seg Neutrophils % Seg Neuts % (Manual) Lymphocytes % (Manual) Monocytes % (Manual) Eosinophils % (Manual) Basophils % (Manual) Nucleated RBC % Seg Neutrophils # Seg Neutrophils # Man Lymphocytes # (Manual) Monocytes # (Manual) Eosinophils # (Manual) Basophils # (Manual) PT INR Fibrinogen dRVVT Confirm Interp Factor V Activity POC ABG pH POC ABG pCO2 POC ABG pO2 ABG pO2 ABG HCO3 ABG Base Excess ABG Hemoglobin Oxyhemoglobin Sodium Potassium Chloride Carbon Dioxide BUN Creatinine Glucose POC Glucose 119 H 155 H 124 H Lactic Acid Calcium Phosphorus Magnesium Direct Bilirubin AST ALT Alkaline Phosphatase Lactate Dehydrogenase Troponin T C-Reactive Protein Total Protein Albumin Prealbumin Triglycerides Cholesterol LDL Cholesterol Direct HDL Cholesterol Urine pH Urine WBC (Auto) Urine Creatinine Urine Total Protein Fluid Total Protein Vancomycin Trough Rheumatoid Factor Complement C4 Miscellaneous Test Crossmatch 10/19/16 10/19/16 10/19/16 04:00 04:00 05:25 WBC 17.4 H RBC 2.54 L Hgb 7.7 L Hct 23.6 L MCV MCH MCHC RDW 17.3 H Plt Count Lymph % (Auto) [place] % (Auto) Lymph # [place] # Baso # Seg Neutrophils % Seg Neuts % (Manual) Lymphocytes % (Manual) Monocytes % (Manual) Eosinophils % (Manual) Basophils % (Manual) Nucleated RBC % Seg Neutrophils # Seg Neutrophils # Man Lymphocytes # (Manual) Monocytes # (Manual) Eosinophils # (Manual) Basophils # (Manual) PT INR Fibrinogen dRVVT Confirm Interp Factor V Activity POC ABG pH POC ABG pCO2 POC ABG pO2 ABG pO2 ABG HCO3 ABG Base Excess ABG Hemoglobin Oxyhemoglobin Sodium Potassium Chloride Carbon Dioxide BUN 72 H Creatinine 2.1 H Glucose 116 H POC Glucose 119 H Lactic Acid Calcium Phosphorus Magnesium Direct Bilirubin AST ALT Alkaline Phosphatase Lactate Dehydrogenase Troponin T C-Reactive Protein Total Protein Albumin Prealbumin Triglycerides Cholesterol LDL Cholesterol Direct HDL Cholesterol Urine pH Urine WBC (Auto) Urine Creatinine Urine Total Protein Fluid Total Protein Vancomycin Trough Rheumatoid Factor Complement C4 Miscellaneous Test Crossmatch 10/19/16 10/19/16 10/20/16 11:46 23:59 06:00 WBC RBC Hgb Hct MCV MCH MCHC RDW Plt Count Lymph % (Auto) [place] % (Auto) Lymph # [place] # Baso # Seg Neutrophils % Seg Neuts % (Manual) Lymphocytes % (Manual) Monocytes % (Manual) Eosinophils % (Manual) Basophils % (Manual) Nucleated RBC % Seg Neutrophils # Seg Neutrophils # Man Lymphocytes # (Manual) Monocytes # (Manual) Eosinophils # (Manual) Basophils # (Manual) PT INR Fibrinogen dRVVT Confirm Interp Factor V Activity POC ABG pH POC ABG pCO2 POC ABG pO2 ABG pO2 ABG HCO3 ABG Base Excess ABG Hemoglobin Oxyhemoglobin Sodium Potassium Chloride Carbon Dioxide 17 L BUN 94 H Creatinine 2.7 H Glucose POC Glucose 116 H 117 H Lactic Acid Calcium Phosphorus Magnesium Direct Bilirubin AST ALT Alkaline Phosphatase Lactate Dehydrogenase Troponin T C-Reactive Protein Total Protein Albumin Prealbumin Triglycerides Cholesterol LDL Cholesterol Direct HDL Cholesterol Urine pH Urine WBC (Auto) Urine Creatinine Urine Total Protein Fluid Total Protein Vancomycin Trough Rheumatoid Factor Complement C4 Miscellaneous Test Crossmatch 10/20/16 10/20/16 10/20/16 06:00 11:49 16:00 WBC 19.7 H RBC 2.51 L Hgb 7.7 L Hct 23.5 L MCV MCH MCHC RDW 17.5 H Plt Count Lymph % (Auto) [place] % (Auto) Lymph # [place] # Baso # Seg Neutrophils % Seg Neuts % (Manual) Lymphocytes % (Manual) Monocytes % (Manual) Eosinophils % (Manual) Basophils % (Manual) Nucleated RBC % Seg Neutrophils # Seg Neutrophils # Man Lymphocytes # (Manual) Monocytes # (Manual) Eosinophils # (Manual) Basophils # (Manual) PT INR Fibrinogen dRVVT Confirm Interp Factor V Activity POC ABG pH POC ABG pCO2 POC ABG pO2 ABG pO2 ABG HCO3 ABG Base Excess ABG Hemoglobin Oxyhemoglobin Sodium Potassium Chloride Carbon Dioxide BUN Creatinine Glucose POC Glucose 117 H Lactic Acid Calcium Phosphorus Magnesium Direct Bilirubin AST ALT Alkaline Phosphatase Lactate Dehydrogenase Troponin T C-Reactive Protein Total Protein Albumin Prealbumin Triglycerides Cholesterol LDL Cholesterol Direct HDL Cholesterol Urine pH Urine WBC (Auto) Urine Creatinine Urine Total Protein Fluid Total Protein Vancomycin Trough Rheumatoid Factor Complement C4 Miscellaneous Test Flexitest 1 H Crossmatch 10/20/16 10/20/16 10/21/16 18:36 23:39 04:00 WBC RBC Hgb Hct MCV MCH MCHC RDW Plt Count Lymph % (Auto) [place] % (Auto) Lymph # [place] # Baso # Seg Neutrophils % Seg Neuts % (Manual) Lymphocytes % (Manual) Monocytes % (Manual) Eosinophils % (Manual) Basophils % (Manual) Nucleated RBC % Seg Neutrophils # Seg Neutrophils # Man Lymphocytes # (Manual) Monocytes # (Manual) Eosinophils # (Manual) Basophils # (Manual) PT INR Fibrinogen dRVVT Confirm Interp Factor V Activity POC ABG pH POC ABG pCO2 POC ABG pO2 ABG pO2 ABG HCO3 ABG Base Excess ABG Hemoglobin Oxyhemoglobin Sodium Potassium 5.4 H D Chloride Carbon Dioxide 15 L BUN 110 H Creatinine 3.0 H Glucose POC Glucose 127 H 114 H Lactic Acid Calcium Phosphorus Magnesium Direct Bilirubin AST ALT Alkaline Phosphatase Lactate Dehydrogenase Troponin T C-Reactive Protein Total Protein Albumin Prealbumin Triglycerides Cholesterol LDL Cholesterol Direct HDL Cholesterol Urine pH Urine WBC (Auto) Urine Creatinine Urine Total Protein Fluid Total Protein Vancomycin Trough Rheumatoid Factor Complement C4 Miscellaneous Test Crossmatch 10/21/16 10/21/16 10/22/16 05:54 23:46 05:18 WBC RBC Hgb Hct MCV MCH MCHC RDW Plt Count Lymph % (Auto) [place] % (Auto) Lymph # [place] # Baso # Seg Neutrophils % Seg Neuts % (Manual) Lymphocytes % (Manual) Monocytes % (Manual) Eosinophils % (Manual) Basophils % (Manual) Nucleated RBC % Seg Neutrophils # Seg Neutrophils # Man Lymphocytes # (Manual) Monocytes # (Manual) Eosinophils # (Manual) Basophils # (Manual) PT INR Fibrinogen dRVVT Confirm Interp Factor V Activity POC ABG pH POC ABG pCO2 POC ABG pO2 ABG pO2 ABG HCO3 ABG Base Excess ABG Hemoglobin Oxyhemoglobin Sodium Potassium Chloride Carbon Dioxide BUN Creatinine Glucose POC Glucose 119 H 108 H 109 H Lactic Acid Calcium Phosphorus Magnesium Direct Bilirubin AST ALT Alkaline Phosphatase Lactate Dehydrogenase Troponin T C-Reactive Protein Total Protein Albumin Prealbumin Triglycerides Cholesterol LDL Cholesterol Direct HDL Cholesterol Urine pH Urine WBC (Auto) Urine Creatinine Urine Total Protein Fluid Total Protein Vancomycin Trough Rheumatoid Factor Complement C4 Miscellaneous Test Crossmatch 10/22/16 10/22/16 10/22/16 06:40 06:40 06:40 WBC 14.0 H RBC 2.03 L Hgb 7.0 L Hct 20.5 L MCV 98 H MCH 34 H MCHC 35 H RDW 17.8 H Plt Count Lymph % (Auto) [place] % (Auto) 9.9 H Lymph # [place] # 1.4 H Baso # 0.2 H Seg Neutrophils % 72.0 H Seg Neuts % (Manual) Lymphocytes % (Manual) Monocytes % (Manual) Eosinophils % (Manual) Basophils % (Manual) Nucleated RBC % Seg Neutrophils # 10.0 H Seg Neutrophils # Man Lymphocytes # (Manual) Monocytes # (Manual) Eosinophils # (Manual) Basophils # (Manual) PT INR Fibrinogen dRVVT Confirm Interp Factor V Activity POC ABG pH POC ABG pCO2 POC ABG pO2 ABG pO2 ABG HCO3 ABG Base Excess ABG Hemoglobin Oxyhemoglobin Sodium 130 L D Potassium Chloride 92.4 L Carbon Dioxide 20 L BUN 50 H Creatinine 1.6 H Glucose 589 H* POC Glucose Lactic Acid Calcium 7.8 L D Phosphorus Magnesium 1.60 L Direct Bilirubin AST ALT Alkaline Phosphatase Lactate Dehydrogenase Troponin T C-Reactive Protein Total Protein Albumin Prealbumin Triglycerides Cholesterol LDL Cholesterol Direct HDL Cholesterol Urine pH Urine WBC (Auto) Urine Creatinine Urine Total Protein Fluid Total Protein Vancomycin Trough Rheumatoid Factor Complement C4 Miscellaneous Test Crossmatch 10/22/16 10/22/16 10/22/16 11:39 16:44 23:36 WBC RBC Hgb Hct MCV MCH MCHC RDW Plt Count Lymph % (Auto) [place] % (Auto) Lymph # [place] # Baso # Seg Neutrophils % Seg Neuts % (Manual) Lymphocytes % (Manual) Monocytes % (Manual) Eosinophils % (Manual) Basophils % (Manual) Nucleated RBC % Seg Neutrophils # Seg Neutrophils # Man Lymphocytes # (Manual) Monocytes # (Manual) Eosinophils # (Manual) Basophils # (Manual) PT INR Fibrinogen dRVVT Confirm Interp Factor V Activity POC ABG pH POC ABG pCO2 POC ABG pO2 ABG pO2 ABG HCO3 ABG Base Excess ABG Hemoglobin Oxyhemoglobin Sodium Potassium Chloride Carbon Dioxide BUN Creatinine Glucose POC Glucose 142 H 163 H 123 H Lactic Acid Calcium Phosphorus Magnesium Direct Bilirubin AST ALT Alkaline Phosphatase Lactate Dehydrogenase Troponin T C-Reactive Protein Total Protein Albumin Prealbumin Triglycerides Cholesterol LDL Cholesterol Direct HDL Cholesterol Urine pH Urine WBC (Auto) Urine Creatinine Urine Total Protein Fluid Total Protein Vancomycin Trough Rheumatoid Factor Complement C4 Miscellaneous Test Crossmatch 10/23/16 10/23/16 10/23/16 04:58 06:00 12:12 WBC RBC Hgb Hct MCV MCH MCHC RDW Plt Count Lymph % (Auto) [place] % (Auto) Lymph # [place] # Baso # Seg Neutrophils % Seg Neuts % (Manual) Lymphocytes % (Manual) Monocytes % (Manual) Eosinophils % (Manual) Basophils % (Manual) Nucleated RBC % Seg Neutrophils # Seg Neutrophils # Man Lymphocytes # (Manual) Monocytes # (Manual) Eosinophils # (Manual) Basophils # (Manual) PT INR Fibrinogen dRVVT Confirm Interp Factor V Activity POC ABG pH POC ABG pCO2 POC ABG pO2 ABG pO2 ABG HCO3 ABG Base Excess ABG Hemoglobin Oxyhemoglobin Sodium 133 L Potassium 3.5 L Chloride 96.1 L Carbon Dioxide 18 L BUN 76 H Creatinine 2.1 H Glucose POC Glucose 133 H 138 H Lactic Acid Calcium 8.3 L Phosphorus Magnesium Direct Bilirubin AST ALT Alkaline Phosphatase Lactate Dehydrogenase Troponin T C-Reactive Protein Total Protein Albumin Prealbumin Triglycerides Cholesterol LDL Cholesterol Direct HDL Cholesterol Urine pH Urine WBC (Auto) Urine Creatinine Urine Total Protein Fluid Total Protein Vancomycin Trough Rheumatoid Factor Complement C4 Miscellaneous Test Crossmatch 10/23/16 10/23/16 10/24/16 16:53 23:37 04:00 WBC RBC Hgb Hct MCV MCH MCHC RDW Plt Count Lymph % (Auto) [place] % (Auto) Lymph # [place] # Baso # Seg Neutrophils % Seg Neuts % (Manual) Lymphocytes % (Manual) Monocytes % (Manual) Eosinophils % (Manual) Basophils % (Manual) Nucleated RBC % Seg Neutrophils # Seg Neutrophils # Man Lymphocytes # (Manual) Monocytes # (Manual) Eosinophils # (Manual) Basophils # (Manual) PT INR Fibrinogen dRVVT Confirm Interp Factor V Activity POC ABG pH POC ABG pCO2 POC ABG pO2 ABG pO2 ABG HCO3 ABG Base Excess ABG Hemoglobin Oxyhemoglobin Sodium 131 L Potassium Chloride 94.5 L Carbon Dioxide 19 L BUN 97 H Creatinine 2.6 H Glucose 110 H POC Glucose 125 H 123 H Lactic Acid Calcium 8.3 L Phosphorus Magnesium Direct Bilirubin AST ALT Alkaline Phosphatase Lactate Dehydrogenase Troponin T C-Reactive Protein Total Protein Albumin Prealbumin Triglycerides Cholesterol LDL Cholesterol Direct HDL Cholesterol Urine pH Urine WBC (Auto) Urine Creatinine Urine Total Protein Fluid Total Protein Vancomycin Trough Rheumatoid Factor Complement C4 Miscellaneous Test Crossmatch 10/24/16 10/24/16 10/24/16 07:49 11:39 17:52 WBC RBC Hgb 6.0 L Hct 19.7 L* MCV MCH MCHC RDW Plt Count Lymph % (Auto) [place] % (Auto) Lymph # [place] # Baso # Seg Neutrophils % Seg Neuts % (Manual) Lymphocytes % (Manual) Monocytes % (Manual) Eosinophils % (Manual) Basophils % (Manual) Nucleated RBC % Seg Neutrophils # Seg Neutrophils # Man Lymphocytes # (Manual) Monocytes # (Manual) Eosinophils # (Manual) Basophils # (Manual) PT INR Fibrinogen dRVVT Confirm Interp Factor V Activity POC ABG pH POC ABG pCO2 POC ABG pO2 ABG pO2 ABG HCO3 ABG Base Excess ABG Hemoglobin Oxyhemoglobin Sodium Potassium Chloride Carbon Dioxide BUN Creatinine Glucose POC Glucose 106 H 158 H Lactic Acid Calcium Phosphorus Magnesium Direct Bilirubin AST ALT Alkaline Phosphatase Lactate Dehydrogenase Troponin T C-Reactive Protein Total Protein Albumin Prealbumin Triglycerides Cholesterol LDL Cholesterol Direct HDL Cholesterol Urine pH Urine WBC (Auto) Urine Creatinine Urine Total Protein Fluid Total Protein Vancomycin Trough Rheumatoid Factor Complement C4 Miscellaneous Test Crossmatch 10/24/16 10/24/16 10/24/16 20:00 22:27 Unknown WBC RBC Hgb 9.4 L D Hct 27.5 L D MCV MCH MCHC RDW Plt Count Lymph % (Auto) [place] % (Auto) Lymph # [place] # Baso # Seg Neutrophils % Seg Neuts % (Manual) Lymphocytes % (Manual) Monocytes % (Manual) Eosinophils % (Manual) Basophils % (Manual) Nucleated RBC % Seg Neutrophils # Seg Neutrophils # Man Lymphocytes # (Manual) Monocytes # (Manual) Eosinophils # (Manual) Basophils # (Manual) PT INR Fibrinogen dRVVT Confirm Interp Factor V Activity POC ABG pH POC ABG pCO2 POC ABG pO2 ABG pO2 ABG HCO3 ABG Base Excess ABG Hemoglobin Oxyhemoglobin Sodium Potassium Chloride Carbon Dioxide BUN Creatinine Glucose POC Glucose 125 H Lactic Acid Calcium Phosphorus Magnesium Direct Bilirubin AST ALT Alkaline Phosphatase Lactate Dehydrogenase Troponin T C-Reactive Protein Total Protein Albumin Prealbumin Triglycerides Cholesterol LDL Cholesterol Direct HDL Cholesterol Urine pH Urine WBC (Auto) Urine Creatinine Urine Total Protein Fluid Total Protein Vancomycin Trough Rheumatoid Factor Complement C4 Miscellaneous Test Crossmatch See Detail 10/25/16 10/25/16 10/25/16 04:00 04:00 04:00 WBC 14.2 H RBC 2.98 L Hgb 9.0 L Hct 26.2 L MCV MCH MCHC RDW 16.6 H Plt Count Lymph % (Auto) [place] % (Auto) 10.7 H Lymph # [place] # 1.5 H Baso # Seg Neutrophils % 73.6 H Seg Neuts % (Manual) Lymphocytes % (Manual) Monocytes % (Manual) Eosinophils % (Manual) Basophils % (Manual) Nucleated RBC % Seg Neutrophils # 10.5 H Seg Neutrophils # Man Lymphocytes # (Manual) Monocytes # (Manual) Eosinophils # (Manual) Basophils # (Manual) PT INR Fibrinogen dRVVT Confirm Interp Factor V Activity POC ABG pH POC ABG pCO2 POC ABG pO2 ABG pO2 ABG HCO3 ABG Base Excess ABG Hemoglobin Oxyhemoglobin Sodium 132 L Potassium Chloride 94.7 L Carbon Dioxide BUN 51 H Creatinine 1.6 H Glucose 130 H POC Glucose Lactic Acid Calcium 8.3 L Phosphorus 1.60 L D Magnesium Direct Bilirubin AST ALT Alkaline Phosphatase Lactate Dehydrogenase Troponin T C-Reactive Protein Total Protein Albumin Prealbumin Triglycerides Cholesterol LDL Cholesterol Direct HDL Cholesterol Urine pH Urine WBC (Auto) Urine Creatinine Urine Total Protein Fluid Total Protein Vancomycin Trough Rheumatoid Factor Complement C4 Miscellaneous Test Crossmatch 10/25/16 10/25/16 10/25/16 04:32 11:48 17:22 WBC RBC Hgb Hct MCV MCH MCHC RDW Plt Count Lymph % (Auto) [place] % (Auto) Lymph # [place] # Baso # Seg Neutrophils % Seg Neuts % (Manual) Lymphocytes % (Manual) Monocytes % (Manual) Eosinophils % (Manual) Basophils % (Manual) Nucleated RBC % Seg Neutrophils # Seg Neutrophils # Man Lymphocytes # (Manual) Monocytes # (Manual) Eosinophils # (Manual) Basophils # (Manual) PT INR Fibrinogen dRVVT Confirm Interp Factor V Activity POC ABG pH POC ABG pCO2 POC ABG pO2 ABG pO2 ABG HCO3 ABG Base Excess ABG Hemoglobin Oxyhemoglobin Sodium Potassium Chloride Carbon Dioxide BUN Creatinine Glucose POC Glucose 124 H 171 H 120 H Lactic Acid Calcium Phosphorus Magnesium Direct Bilirubin AST ALT Alkaline Phosphatase Lactate Dehydrogenase Troponin T C-Reactive Protein Total Protein Albumin Prealbumin Triglycerides Cholesterol LDL Cholesterol Direct HDL Cholesterol Urine pH Urine WBC (Auto) Urine Creatinine Urine Total Protein Fluid Total Protein Vancomycin Trough Rheumatoid Factor Complement C4 Miscellaneous Test Crossmatch 10/26/16 10/26/16 10/26/16 04:54 07:06 07:06 WBC 16.9 H RBC 3.06 L Hgb 9.1 L Hct 26.9 L MCV MCH MCHC RDW 16.9 H Plt Count Lymph % (Auto) [place] % (Auto) Lymph # [place] # Baso # Seg Neutrophils % Seg Neuts % (Manual) 71.0 H Lymphocytes % (Manual) 5.0 L Monocytes % (Manual) 12.0 H Eosinophils % (Manual) Basophils % (Manual) Nucleated RBC % Seg Neutrophils # Seg Neutrophils # Man 12.0 H Lymphocytes # (Manual) 0.8 L Monocytes # (Manual) 2.0 H Eosinophils # (Manual) Basophils # (Manual) PT INR Fibrinogen dRVVT Confirm Interp Factor V Activity POC ABG pH POC ABG pCO2 POC ABG pO2 ABG pO2 ABG HCO3 ABG Base Excess ABG Hemoglobin Oxyhemoglobin Sodium 135 L Potassium Chloride 97.1 L Carbon Dioxide BUN 73 H Creatinine 2.2 H Glucose 117 H POC Glucose 123 H Lactic Acid Calcium Phosphorus 1.70 L Magnesium Direct Bilirubin AST ALT Alkaline Phosphatase Lactate Dehydrogenase Troponin T C-Reactive Protein Total Protein Albumin Prealbumin Triglycerides Cholesterol LDL Cholesterol Direct HDL Cholesterol Urine pH Urine WBC (Auto) Urine Creatinine Urine Total Protein Fluid Total Protein Vancomycin Trough Rheumatoid Factor Complement C4 Miscellaneous Test Crossmatch 10/26/16 10/26/16 10/26/16 12:12 17:29 23:42 WBC RBC Hgb Hct MCV MCH MCHC RDW Plt Count Lymph % (Auto) [place] % (Auto) Lymph # [place] # Baso # Seg Neutrophils % Seg Neuts % (Manual) Lymphocytes % (Manual) Monocytes % (Manual) Eosinophils % (Manual) Basophils % (Manual) Nucleated RBC % Seg Neutrophils # Seg Neutrophils # Man Lymphocytes # (Manual) Monocytes # (Manual) Eosinophils # (Manual) Basophils # (Manual) PT INR Fibrinogen dRVVT Confirm Interp Factor V Activity POC ABG pH POC ABG pCO2 POC ABG pO2 ABG pO2 ABG HCO3 ABG Base Excess ABG Hemoglobin Oxyhemoglobin Sodium Potassium Chloride Carbon Dioxide BUN Creatinine Glucose POC Glucose 126 H 161 H 118 H Lactic Acid Calcium Phosphorus Magnesium Direct Bilirubin AST ALT Alkaline Phosphatase Lactate Dehydrogenase Troponin T C-Reactive Protein Total Protein Albumin Prealbumin Triglycerides Cholesterol LDL Cholesterol Direct HDL Cholesterol Urine pH Urine WBC (Auto) Urine Creatinine Urine Total Protein Fluid Total Protein Vancomycin Trough Rheumatoid Factor Complement C4 Miscellaneous Test Crossmatch 10/27/16 10/27/16 10/27/16 05:03 06:30 06:30 WBC 13.9 H RBC 3.09 L Hgb 9.2 L Hct 27.5 L MCV MCH MCHC RDW 17.0 H Plt Count Lymph % (Auto) [place] % (Auto) Lymph # [place] # Baso # Seg Neutrophils % Seg Neuts % (Manual) 78.0 H Lymphocytes % (Manual) Monocytes % (Manual) Eosinophils % (Manual) Basophils % (Manual) Nucleated RBC % 2.0 H Seg Neutrophils # Seg Neutrophils # Man 10.8 H Lymphocytes # (Manual) Monocytes # (Manual) 1.0 H Eosinophils # (Manual) Basophils # (Manual) PT INR Fibrinogen dRVVT Confirm Interp Factor V Activity POC ABG pH POC ABG pCO2 POC ABG pO2 ABG pO2 ABG HCO3 ABG Base Excess ABG Hemoglobin Oxyhemoglobin Sodium Potassium Chloride Carbon Dioxide BUN 40 H Creatinine 1.5 H Glucose 135 H POC Glucose 107 H Lactic Acid Calcium 8.3 L Phosphorus 1.30 L D Magnesium Direct Bilirubin AST ALT Alkaline Phosphatase Lactate Dehydrogenase Troponin T C-Reactive Protein Total Protein Albumin Prealbumin Triglycerides Cholesterol LDL Cholesterol Direct HDL Cholesterol Urine pH Urine WBC (Auto) Urine Creatinine Urine Total Protein Fluid Total Protein Vancomycin Trough Rheumatoid Factor Complement C4 Miscellaneous Test Crossmatch 10/27/16 10/27/16 10/27/16 13:27 18:07 23:40 WBC RBC Hgb Hct MCV MCH MCHC RDW Plt Count Lymph % (Auto) [place] % (Auto) Lymph # [place] # Baso # Seg Neutrophils % Seg Neuts % (Manual) Lymphocytes % (Manual) Monocytes % (Manual) Eosinophils % (Manual) Basophils % (Manual) Nucleated RBC % Seg Neutrophils # Seg Neutrophils # Man Lymphocytes # (Manual) Monocytes # (Manual) Eosinophils # (Manual) Basophils # (Manual) PT INR Fibrinogen dRVVT Confirm Interp Factor V Activity POC ABG pH POC ABG pCO2 POC ABG pO2 ABG pO2 ABG HCO3 ABG Base Excess ABG Hemoglobin Oxyhemoglobin Sodium Potassium Chloride Carbon Dioxide BUN Creatinine Glucose POC Glucose 117 H 121 H 118 H Lactic Acid Calcium Phosphorus Magnesium Direct Bilirubin AST ALT Alkaline Phosphatase Lactate Dehydrogenase Troponin T C-Reactive Protein Total Protein Albumin Prealbumin Triglycerides Cholesterol LDL Cholesterol Direct HDL Cholesterol Urine pH Urine WBC (Auto) Urine Creatinine Urine Total Protein Fluid Total Protein Vancomycin Trough Rheumatoid Factor Complement C4 Miscellaneous Test Crossmatch 10/28/16 10/28/16 10/28/16 05:48 06:45 06:45 WBC 14.7 H RBC 3.05 L Hgb 9.0 L Hct 26.9 L MCV MCH MCHC RDW 16.8 H Plt Count Lymph % (Auto) 8.2 L [place] % (Auto) 8.4 H Lymph # [place] # 1.2 H Baso # Seg Neutrophils % 81.9 H Seg Neuts % (Manual) Lymphocytes % (Manual) Monocytes % (Manual) Eosinophils % (Manual) Basophils % (Manual) Nucleated RBC % Seg Neutrophils # 12.1 H Seg Neutrophils # Man Lymphocytes # (Manual) Monocytes # (Manual) Eosinophils # (Manual) Basophils # (Manual) PT INR Fibrinogen dRVVT Confirm Interp Factor V Activity POC ABG pH POC ABG pCO2 POC ABG pO2 ABG pO2 ABG HCO3 ABG Base Excess ABG Hemoglobin Oxyhemoglobin Sodium Potassium Chloride Carbon Dioxide BUN 60 H Creatinine 1.9 H Glucose 120 H POC Glucose 114 H Lactic Acid Calcium Phosphorus Magnesium Direct Bilirubin AST ALT Alkaline Phosphatase Lactate Dehydrogenase Troponin T C-Reactive Protein Total Protein Albumin Prealbumin Triglycerides Cholesterol LDL Cholesterol Direct HDL Cholesterol Urine pH Urine WBC (Auto) Urine Creatinine Urine Total Protein Fluid Total Protein Vancomycin Trough Rheumatoid Factor Complement C4 Miscellaneous Test Crossmatch 10/28/16 10/28/16 10/29/16 17:08 23:50 05:10 WBC RBC Hgb Hct MCV MCH MCHC RDW Plt Count Lymph % (Auto) [place] % (Auto) Lymph # [place] # Baso # Seg Neutrophils % Seg Neuts % (Manual) Lymphocytes % (Manual) Monocytes % (Manual) Eosinophils % (Manual) Basophils % (Manual) Nucleated RBC % Seg Neutrophils # Seg Neutrophils # Man Lymphocytes # (Manual) Monocytes # (Manual) Eosinophils # (Manual) Basophils # (Manual) PT INR Fibrinogen dRVVT Confirm Interp Factor V Activity POC ABG pH POC ABG pCO2 POC ABG pO2 ABG pO2 ABG HCO3 ABG Base Excess ABG Hemoglobin Oxyhemoglobin Sodium Potassium Chloride Carbon Dioxide BUN Creatinine Glucose POC Glucose 109 H 110 H 124 H Lactic Acid Calcium Phosphorus Magnesium Direct Bilirubin AST ALT Alkaline Phosphatase Lactate Dehydrogenase Troponin T C-Reactive Protein Total Protein Albumin Prealbumin Triglycerides Cholesterol LDL Cholesterol Direct HDL Cholesterol Urine pH Urine WBC (Auto) Urine Creatinine Urine Total Protein Fluid Total Protein Vancomycin Trough Rheumatoid Factor Complement C4 Miscellaneous Test Crossmatch 10/29/16 10/29/16 10/29/16 07:45 07:45 12:19 WBC 14.7 H RBC 3.15 L Hgb 9.3 L Hct 28.9 L MCV MCH MCHC RDW 17.0 H Plt Count Lymph % (Auto) 11.9 L [place] % (Auto) 8.6 H Lymph # [place] # 1.3 H Baso # Seg Neutrophils % 78.1 H Seg Neuts % (Manual) Lymphocytes % (Manual) Monocytes % (Manual) Eosinophils % (Manual) Basophils % (Manual) Nucleated RBC % Seg Neutrophils # 11.4 H Seg Neutrophils # Man Lymphocytes # (Manual) Monocytes # (Manual) Eosinophils # (Manual) Basophils # (Manual) PT INR Fibrinogen dRVVT Confirm Interp Factor V Activity POC ABG pH POC ABG pCO2 POC ABG pO2 ABG pO2 ABG HCO3 ABG Base Excess ABG Hemoglobin Oxyhemoglobin Sodium Potassium 5.1 H Chloride Carbon Dioxide 19 L BUN 78 H Creatinine 2.2 H Glucose 116 H POC Glucose 118 H Lactic Acid Calcium Phosphorus Magnesium Direct Bilirubin AST ALT Alkaline Phosphatase Lactate Dehydrogenase Troponin T C-Reactive Protein Total Protein Albumin Prealbumin Triglycerides Cholesterol LDL Cholesterol Direct HDL Cholesterol Urine pH Urine WBC (Auto) Urine Creatinine Urine Total Protein Fluid Total Protein Vancomycin Trough Rheumatoid Factor Complement C4 Miscellaneous Test Crossmatch 10/29/16 10/30/16 10/30/16 17:49 01:52 03:28 WBC RBC Hgb Hct MCV MCH MCHC RDW Plt Count Lymph % (Auto) [place] % (Auto) Lymph # [place] # Baso # Seg Neutrophils % Seg Neuts % (Manual) Lymphocytes % (Manual) Monocytes % (Manual) Eosinophils % (Manual) Basophils % (Manual) Nucleated RBC % Seg Neutrophils # Seg Neutrophils # Man Lymphocytes # (Manual) Monocytes # (Manual) Eosinophils # (Manual) Basophils # (Manual) PT INR Fibrinogen dRVVT Confirm Interp Factor V Activity POC ABG pH POC ABG pCO2 POC ABG pO2 ABG pO2 ABG HCO3 ABG Base Excess ABG Hemoglobin Oxyhemoglobin Sodium Potassium 5.4 H Chloride 97.5 L Carbon Dioxide 19 L BUN 90 H Creatinine 2.5 H Glucose POC Glucose 120 H 129 H Lactic Acid Calcium Phosphorus 5.20 H Magnesium Direct Bilirubin AST ALT Alkaline Phosphatase Lactate Dehydrogenase Troponin T C-Reactive Protein Total Protein Albumin Prealbumin Triglycerides Cholesterol LDL Cholesterol Direct HDL Cholesterol Urine pH Urine WBC (Auto) Urine Creatinine Urine Total Protein Fluid Total Protein Vancomycin Trough Rheumatoid Factor Complement C4 Miscellaneous Test Crossmatch 10/30/16 10/30/16 10/30/16 03:28 08:19 08:19 WBC 11.6 H 15.9 H RBC 2.75 L 2.82 L Hgb 7.9 L 8.3 L Hct 24.2 L 25.2 L MCV MCH MCHC RDW 16.7 H 17.2 H Plt Count Lymph % (Auto) [place] % (Auto) 9.8 H Lymph # [place] # 1.1 H Baso # Seg Neutrophils % 74.2 H Seg Neuts % (Manual) Lymphocytes % (Manual) Monocytes % (Manual) Eosinophils % (Manual) Basophils % (Manual) Nucleated RBC % Seg Neutrophils # 8.6 H Seg Neutrophils # Man Lymphocytes # (Manual) Monocytes # (Manual) Eosinophils # (Manual) Basophils # (Manual) PT INR Fibrinogen dRVVT Confirm Interp Factor V Activity POC ABG pH POC ABG pCO2 POC ABG pO2 ABG pO2 ABG HCO3 ABG Base Excess ABG Hemoglobin Oxyhemoglobin Sodium Potassium 5.3 H Chloride 97.4 L Carbon Dioxide 19 L BUN 93 H Creatinine 2.6 H Glucose POC Glucose Lactic Acid Calcium Phosphorus Magnesium Direct Bilirubin AST ALT Alkaline Phosphatase Lactate Dehydrogenase Troponin T C-Reactive Protein Total Protein Albumin Prealbumin Triglycerides Cholesterol LDL Cholesterol Direct HDL Cholesterol Urine pH Urine WBC (Auto) Urine Creatinine Urine Total Protein Fluid Total Protein Vancomycin Trough Rheumatoid Factor Complement C4 Miscellaneous Test Crossmatch 10/30/16 10/30/16 10/31/16 17:11 23:56 00:40 WBC RBC Hgb Hct MCV MCH MCHC RDW Plt Count Lymph % (Auto) [place] % (Auto) Lymph # [place] # Baso # Seg Neutrophils % Seg Neuts % (Manual) Lymphocytes % (Manual) Monocytes % (Manual) Eosinophils % (Manual) Basophils % (Manual) Nucleated RBC % Seg Neutrophils # Seg Neutrophils # Man Lymphocytes # (Manual) Monocytes # (Manual) Eosinophils # (Manual) Basophils # (Manual) PT INR Fibrinogen dRVVT Confirm Interp Factor V Activity POC ABG pH POC ABG pCO2 POC ABG pO2 ABG pO2 ABG HCO3 ABG Base Excess ABG Hemoglobin Oxyhemoglobin Sodium Potassium Chloride Carbon Dioxide BUN Creatinine Glucose POC Glucose 106 H 117 H 120 H Lactic Acid Calcium Phosphorus Magnesium Direct Bilirubin AST ALT Alkaline Phosphatase Lactate Dehydrogenase Troponin T C-Reactive Protein Total Protein Albumin Prealbumin Triglycerides Cholesterol LDL Cholesterol Direct HDL Cholesterol Urine pH Urine WBC (Auto) Urine Creatinine Urine Total Protein Fluid Total Protein Vancomycin Trough Rheumatoid Factor Complement C4 Miscellaneous Test Crossmatch 10/31/16 10/31/16 10/31/16 05:43 07:15 07:15 WBC 12.1 H RBC 2.63 L Hgb 7.7 L Hct 23.3 L MCV MCH MCHC RDW 16.7 H Plt Count Lymph % (Auto) 11.7 L [place] % (Auto) 7.7 H Lymph # [place] # 0.9 H Baso # Seg Neutrophils % 78.0 H Seg Neuts % (Manual) Lymphocytes % (Manual) Monocytes % (Manual) Eosinophils % (Manual) Basophils % (Manual) Nucleated RBC % Seg Neutrophils # 9.4 H Seg Neutrophils # Man Lymphocytes # (Manual) Monocytes # (Manual) Eosinophils # (Manual) Basophils # (Manual) PT INR Fibrinogen dRVVT Confirm Interp Factor V Activity POC ABG pH POC ABG pCO2 POC ABG pO2 ABG pO2 ABG HCO3 ABG Base Excess ABG Hemoglobin Oxyhemoglobin Sodium Potassium Chloride 96.4 L Carbon Dioxide 21 L BUN 99 H Creatinine 2.6 H Glucose 144 H POC Glucose 125 H Lactic Acid Calcium Phosphorus 4.80 H Magnesium Direct Bilirubin AST ALT Alkaline Phosphatase Lactate Dehydrogenase Troponin T C-Reactive Protein Total Protein Albumin Prealbumin Triglycerides Cholesterol LDL Cholesterol Direct HDL Cholesterol Urine pH Urine WBC (Auto) Urine Creatinine Urine Total Protein Fluid Total Protein Vancomycin Trough Rheumatoid Factor Complement C4 Miscellaneous Test Crossmatch 10/31/16 10/31/16 11/01/16 11:46 18:34 00:20 WBC RBC Hgb Hct MCV MCH MCHC RDW Plt Count Lymph % (Auto) [place] % (Auto) Lymph # [place] # Baso # Seg Neutrophils % Seg Neuts % (Manual) Lymphocytes % (Manual) Monocytes % (Manual) Eosinophils % (Manual) Basophils % (Manual) Nucleated RBC % Seg Neutrophils # Seg Neutrophils # Man Lymphocytes # (Manual) Monocytes # (Manual) Eosinophils # (Manual) Basophils # (Manual) PT INR Fibrinogen dRVVT Confirm Interp Factor V Activity POC ABG pH POC ABG pCO2 POC ABG pO2 ABG pO2 ABG HCO3 ABG Base Excess ABG Hemoglobin Oxyhemoglobin Sodium Potassium Chloride Carbon Dioxide BUN Creatinine Glucose POC Glucose 159 H 140 H 132 H Lactic Acid Calcium Phosphorus Magnesium Direct Bilirubin AST ALT Alkaline Phosphatase Lactate Dehydrogenase Troponin T C-Reactive Protein Total Protein Albumin Prealbumin Triglycerides Cholesterol LDL Cholesterol Direct HDL Cholesterol Urine pH Urine WBC (Auto) Urine Creatinine Urine Total Protein Fluid Total Protein Vancomycin Trough Rheumatoid Factor Complement C4 Miscellaneous Test Crossmatch 11/01/16 11/01/16 11/01/16 04:55 04:55 06:11 WBC 11.2 H RBC 2.68 L Hgb 7.5 L Hct 23.7 L MCV MCH MCHC RDW 16.1 H Plt Count Lymph % (Auto) [place] % (Auto) 9.8 H Lymph # [place] # 1.1 H Baso # Seg Neutrophils % 70.8 H Seg Neuts % (Manual) Lymphocytes % (Manual) Monocytes % (Manual) Eosinophils % (Manual) Basophils % (Manual) Nucleated RBC % Seg Neutrophils # 7.9 H Seg Neutrophils # Man Lymphocytes # (Manual) Monocytes # (Manual) Eosinophils # (Manual) Basophils # (Manual) PT INR Fibrinogen dRVVT Confirm Interp Factor V Activity POC ABG pH POC ABG pCO2 POC ABG pO2 ABG pO2 ABG HCO3 ABG Base Excess ABG Hemoglobin Oxyhemoglobin Sodium Potassium 3.3 L D Chloride Carbon Dioxide BUN 61 H Creatinine 1.9 H Glucose 114 H POC Glucose 115 H Lactic Acid Calcium Phosphorus 1.80 L D Magnesium Direct Bilirubin AST ALT Alkaline Phosphatase Lactate Dehydrogenase Troponin T C-Reactive Protein Total Protein Albumin Prealbumin Triglycerides Cholesterol LDL Cholesterol Direct HDL Cholesterol Urine pH Urine WBC (Auto) Urine Creatinine Urine Total Protein Fluid Total Protein Vancomycin Trough Rheumatoid Factor Complement C4 Miscellaneous Test Crossmatch 11/01/16 11/01/16 11/01/16 12:29 18:23 23:58 WBC RBC Hgb Hct MCV MCH MCHC RDW Plt Count Lymph % (Auto) [place] % (Auto) Lymph # [place] # Baso # Seg Neutrophils % Seg Neuts % (Manual) Lymphocytes % (Manual) Monocytes % (Manual) Eosinophils % (Manual) Basophils % (Manual) Nucleated RBC % Seg Neutrophils # Seg Neutrophils # Man Lymphocytes # (Manual) Monocytes # (Manual) Eosinophils # (Manual) Basophils # (Manual) PT INR Fibrinogen dRVVT Confirm Interp Factor V Activity POC ABG pH POC ABG pCO2 POC ABG pO2 ABG pO2 ABG HCO3 ABG Base Excess ABG Hemoglobin Oxyhemoglobin Sodium Potassium Chloride Carbon Dioxide BUN Creatinine Glucose POC Glucose 142 H 143 H 128 H Lactic Acid Calcium Phosphorus Magnesium Direct Bilirubin AST ALT Alkaline Phosphatase Lactate Dehydrogenase Troponin T C-Reactive Protein Total Protein Albumin Prealbumin Triglycerides Cholesterol LDL Cholesterol Direct HDL Cholesterol Urine pH Urine WBC (Auto) Urine Creatinine Urine Total Protein Fluid Total Protein Vancomycin Trough Rheumatoid Factor Complement C4 Miscellaneous Test Crossmatch 11/02/16 11/02/16 11/02/16 04:16 05:29 11:58 WBC RBC Hgb Hct MCV MCH MCHC RDW Plt Count Lymph % (Auto) [place] % (Auto) Lymph # [place] # Baso # Seg Neutrophils % Seg Neuts % (Manual) Lymphocytes % (Manual) Monocytes % (Manual) Eosinophils % (Manual) Basophils % (Manual) Nucleated RBC % Seg Neutrophils # Seg Neutrophils # Man Lymphocytes # (Manual) Monocytes # (Manual) Eosinophils # (Manual) Basophils # (Manual) PT INR Fibrinogen dRVVT Confirm Interp Factor V Activity POC ABG pH POC ABG pCO2 POC ABG pO2 ABG pO2 ABG HCO3 ABG Base Excess ABG Hemoglobin Oxyhemoglobin Sodium Potassium 3.1 L Chloride Carbon Dioxide BUN 73 H Creatinine 2.3 H Glucose 112 H POC Glucose 135 H 149 H Lactic Acid Calcium Phosphorus Magnesium Direct Bilirubin AST ALT Alkaline Phosphatase Lactate Dehydrogenase Troponin T C-Reactive Protein Total Protein Albumin Prealbumin Triglycerides Cholesterol LDL Cholesterol Direct HDL Cholesterol Urine pH Urine WBC (Auto) Urine Creatinine Urine Total Protein Fluid Total Protein Vancomycin Trough Rheumatoid Factor Complement C4 Miscellaneous Test Crossmatch 11/02/16 11/02/16 11/03/16 17:42 22:54 06:00 WBC RBC Hgb Hct MCV MCH MCHC RDW Plt Count Lymph % (Auto) [place] % (Auto) Lymph # [place] # Baso # Seg Neutrophils % Seg Neuts % (Manual) Lymphocytes % (Manual) Monocytes % (Manual) Eosinophils % (Manual) Basophils % (Manual) Nucleated RBC % Seg Neutrophils # Seg Neutrophils # Man Lymphocytes # (Manual) Monocytes # (Manual) Eosinophils # (Manual) Basophils # (Manual) PT INR Fibrinogen dRVVT Confirm Interp Factor V Activity POC ABG pH POC ABG pCO2 POC ABG pO2 ABG pO2 ABG HCO3 ABG Base Excess ABG Hemoglobin Oxyhemoglobin Sodium Potassium Chloride 96.7 L Carbon Dioxide BUN 41 H Creatinine 1.5 H Glucose 145 H POC Glucose 182 H 115 H Lactic Acid Calcium Phosphorus 1.60 L D Magnesium 1.50 L Direct Bilirubin AST ALT Alkaline Phosphatase Lactate Dehydrogenase Troponin T C-Reactive Protein Total Protein Albumin Prealbumin Triglycerides Cholesterol LDL Cholesterol Direct HDL Cholesterol Urine pH Urine WBC (Auto) Urine Creatinine Urine Total Protein Fluid Total Protein Vancomycin Trough Rheumatoid Factor Complement C4 Miscellaneous Test Crossmatch 11/03/16 11/03/16 11/03/16 11:53 17:45 23:37 WBC RBC Hgb Hct MCV MCH MCHC RDW Plt Count Lymph % (Auto) [place] % (Auto) Lymph # [place] # Baso # Seg Neutrophils % Seg Neuts % (Manual) Lymphocytes % (Manual) Monocytes % (Manual) Eosinophils % (Manual) Basophils % (Manual) Nucleated RBC % Seg Neutrophils # Seg Neutrophils # Man Lymphocytes # (Manual) Monocytes # (Manual) Eosinophils # (Manual) Basophils # (Manual) PT INR Fibrinogen dRVVT Confirm Interp Factor V Activity POC ABG pH POC ABG pCO2 POC ABG pO2 ABG pO2 ABG HCO3 ABG Base Excess ABG Hemoglobin Oxyhemoglobin Sodium Potassium Chloride Carbon Dioxide BUN Creatinine Glucose POC Glucose 131 H 134 H 113 H Lactic Acid Calcium Phosphorus Magnesium Direct Bilirubin AST ALT Alkaline Phosphatase Lactate Dehydrogenase Troponin T C-Reactive Protein Total Protein Albumin Prealbumin Triglycerides Cholesterol LDL Cholesterol Direct HDL Cholesterol Urine pH Urine WBC (Auto) Urine Creatinine Urine Total Protein Fluid Total Protein Vancomycin Trough Rheumatoid Factor Complement C4 Miscellaneous Test Crossmatch 11/04/16 11/04/16 11/04/16 05:41 06:00 12:10 WBC RBC Hgb Hct MCV MCH MCHC RDW Plt Count Lymph % (Auto) [place] % (Auto) Lymph # [place] # Baso # Seg Neutrophils % Seg Neuts % (Manual) Lymphocytes % (Manual) Monocytes % (Manual) Eosinophils % (Manual) Basophils % (Manual) Nucleated RBC % Seg Neutrophils # Seg Neutrophils # Man Lymphocytes # (Manual) Monocytes # (Manual) Eosinophils # (Manual) Basophils # (Manual) PT INR Fibrinogen dRVVT Confirm Interp Factor V Activity POC ABG pH POC ABG pCO2 POC ABG pO2 ABG pO2 ABG HCO3 ABG Base Excess ABG Hemoglobin Oxyhemoglobin Sodium Potassium Chloride 96.7 L Carbon Dioxide BUN 52 H Creatinine 1.9 H Glucose 126 H POC Glucose 137 H 191 H Lactic Acid Calcium Phosphorus Magnesium Direct Bilirubin AST ALT Alkaline Phosphatase Lactate Dehydrogenase Troponin T C-Reactive Protein Total Protein Albumin Prealbumin Triglycerides Cholesterol LDL Cholesterol Direct HDL Cholesterol Urine pH Urine WBC (Auto) Urine Creatinine Urine Total Protein Fluid Total Protein Vancomycin Trough Rheumatoid Factor Complement C4 Miscellaneous Test Crossmatch 11/04/16 11/05/16 11/05/16 22:57 03:10 05:10 WBC RBC Hgb Hct MCV MCH MCHC RDW Plt Count Lymph % (Auto) [place] % (Auto) Lymph # [place] # Baso # Seg Neutrophils % Seg Neuts % (Manual) Lymphocytes % (Manual) Monocytes % (Manual) Eosinophils % (Manual) Basophils % (Manual) Nucleated RBC % Seg Neutrophils # Seg Neutrophils # Man Lymphocytes # (Manual) Monocytes # (Manual) Eosinophils # (Manual) Basophils # (Manual) PT INR Fibrinogen dRVVT Confirm Interp Factor V Activity POC ABG pH POC ABG pCO2 POC ABG pO2 ABG pO2 ABG HCO3 ABG Base Excess ABG Hemoglobin Oxyhemoglobin Sodium 136 L Potassium Chloride 97.2 L Carbon Dioxide BUN 32 H Creatinine 1.3 H Glucose 123 H POC Glucose 125 H 108 H Lactic Acid Calcium 7.8 L Phosphorus Magnesium Direct Bilirubin AST ALT Alkaline Phosphatase Lactate Dehydrogenase Troponin T C-Reactive Protein Total Protein Albumin Prealbumin Triglycerides Cholesterol LDL Cholesterol Direct HDL Cholesterol Urine pH Urine WBC (Auto) Urine Creatinine Urine Total Protein Fluid Total Protein Vancomycin Trough Rheumatoid Factor Complement C4 Miscellaneous Test Crossmatch 11/05/16 11/05/16 11/05/16 12:23 13:09 13:25 WBC RBC Hgb Hct MCV MCH MCHC RDW Plt Count Lymph % (Auto) [place] % (Auto) Lymph # [place] # Baso # Seg Neutrophils % Seg Neuts % (Manual) Lymphocytes % (Manual) Monocytes % (Manual) Eosinophils % (Manual) Basophils % (Manual) Nucleated RBC % Seg Neutrophils # Seg Neutrophils # Man Lymphocytes # (Manual) Monocytes # (Manual) Eosinophils # (Manual) Basophils # (Manual) PT INR Fibrinogen dRVVT Confirm Interp Factor V Activity POC ABG pH POC ABG pCO2 POC ABG pO2 ABG pO2 ABG HCO3 ABG Base Excess ABG Hemoglobin Oxyhemoglobin Sodium Potassium Chloride Carbon Dioxide BUN Creatinine Glucose POC Glucose 124 H Lactic Acid Calcium Phosphorus Magnesium Direct Bilirubin AST ALT Alkaline Phosphatase Lactate Dehydrogenase Troponin T C-Reactive Protein 11.40 H Total Protein Albumin Prealbumin Triglycerides Cholesterol LDL Cholesterol Direct HDL Cholesterol Urine pH 9.0 H Urine WBC (Auto) Urine Creatinine Urine Total Protein Fluid Total Protein Vancomycin Trough Rheumatoid Factor Complement C4 Miscellaneous Test Crossmatch 11/05/16 11/05/16 11/05/16 13:25 17:54 23:42 WBC RBC Hgb Hct MCV MCH MCHC RDW Plt Count Lymph % (Auto) [place] % (Auto) Lymph # [place] # Baso # Seg Neutrophils % Seg Neuts % (Manual) Lymphocytes % (Manual) Monocytes % (Manual) Eosinophils % (Manual) Basophils % (Manual) Nucleated RBC % Seg Neutrophils # Seg Neutrophils # Man Lymphocytes # (Manual) Monocytes # (Manual) Eosinophils # (Manual) Basophils # (Manual) PT INR Fibrinogen dRVVT Confirm Interp Factor V Activity POC ABG pH POC ABG pCO2 POC ABG pO2 ABG pO2 ABG HCO3 ABG Base Excess ABG Hemoglobin Oxyhemoglobin Sodium Potassium Chloride Carbon Dioxide BUN Creatinine Glucose POC Glucose 114 H 134 H Lactic Acid Calcium Phosphorus Magnesium Direct Bilirubin AST ALT Alkaline Phosphatase Lactate Dehydrogenase Troponin T C-Reactive Protein Total Protein Albumin Prealbumin Triglycerides Cholesterol LDL Cholesterol Direct HDL Cholesterol Urine pH Urine WBC (Auto) Urine Creatinine Urine Total Protein Fluid Total Protein Vancomycin Trough Rheumatoid Factor Complement C4 Miscellaneous Test Flexitest 1 H Crossmatch 11/06/16 11/06/16 11/06/16 04:56 06:25 06:25 WBC RBC 2.50 L Hgb 7.3 L Hct 22.5 L MCV MCH MCHC RDW 16.9 H Plt Count Lymph % (Auto) [place] % (Auto) 10.5 H Lymph # [place] # 1.1 H Baso # Seg Neutrophils % Seg Neuts % (Manual) Lymphocytes % (Manual) Monocytes % (Manual) Eosinophils % (Manual) Basophils % (Manual) Nucleated RBC % Seg Neutrophils # Seg Neutrophils # Man Lymphocytes # (Manual) Monocytes # (Manual) Eosinophils # (Manual) Basophils # (Manual) PT INR Fibrinogen dRVVT Confirm Interp Factor V Activity POC ABG pH POC ABG pCO2 POC ABG pO2 ABG pO2 ABG HCO3 ABG Base Excess ABG Hemoglobin Oxyhemoglobin Sodium Potassium 5.1 H Chloride 95.9 L Carbon Dioxide BUN 52 H Creatinine 1.8 H Glucose 117 H POC Glucose 120 H Lactic Acid Calcium Phosphorus Magnesium Direct Bilirubin AST 103 H ALT 77 H Alkaline Phosphatase 285 H Lactate Dehydrogenase Troponin T C-Reactive Protein Total Protein 6.2 L Albumin 1.8 L Prealbumin 0.180 L Triglycerides Cholesterol LDL Cholesterol Direct HDL Cholesterol Urine pH Urine WBC (Auto) Urine Creatinine Urine Total Protein Fluid Total Protein Vancomycin Trough Rheumatoid Factor Complement C4 Miscellaneous Test Crossmatch 11/06/16 11/06/16 11/06/16 11:56 17:14 23:52 WBC RBC Hgb Hct MCV MCH MCHC RDW Plt Count Lymph % (Auto) [place] % (Auto) Lymph # [place] # Baso # Seg Neutrophils % Seg Neuts % (Manual) Lymphocytes % (Manual) Monocytes % (Manual) Eosinophils % (Manual) Basophils % (Manual) Nucleated RBC % Seg Neutrophils # Seg Neutrophils # Man Lymphocytes # (Manual) Monocytes # (Manual) Eosinophils # (Manual) Basophils # (Manual) PT INR Fibrinogen dRVVT Confirm Interp Factor V Activity POC ABG pH POC ABG pCO2 POC ABG pO2 ABG pO2 ABG HCO3 ABG Base Excess ABG Hemoglobin Oxyhemoglobin Sodium Potassium Chloride Carbon Dioxide BUN Creatinine Glucose POC Glucose 141 H 125 H 130 H Lactic Acid Calcium Phosphorus Magnesium Direct Bilirubin AST ALT Alkaline Phosphatase Lactate Dehydrogenase Troponin T C-Reactive Protein Total Protein Albumin Prealbumin Triglycerides Cholesterol LDL Cholesterol Direct HDL Cholesterol Urine pH Urine WBC (Auto) Urine Creatinine Urine Total Protein Fluid Total Protein Vancomycin Trough Rheumatoid Factor Complement C4 Miscellaneous Test Crossmatch 11/07/16 11/07/16 11/07/16 06:30 06:30 09:37 WBC RBC 2.18 L Hgb 6.3 L Hct 19.7 L* MCV MCH MCHC RDW 16.8 H Plt Count Lymph % (Auto) [place] % (Auto) 10.0 H Lymph # [place] # 1.0 H Baso # Seg Neutrophils % Seg Neuts % (Manual) Lymphocytes % (Manual) Monocytes % (Manual) Eosinophils % (Manual) Basophils % (Manual) Nucleated RBC % Seg Neutrophils # Seg Neutrophils # Man Lymphocytes # (Manual) Monocytes # (Manual) Eosinophils # (Manual) Basophils # (Manual) PT INR Fibrinogen dRVVT Confirm Interp Factor V Activity POC ABG pH POC ABG pCO2 POC ABG pO2 ABG pO2 ABG HCO3 ABG Base Excess ABG Hemoglobin Oxyhemoglobin Sodium 135 L Potassium Chloride 95.6 L Carbon Dioxide BUN 70 H Creatinine 2.0 H Glucose 126 H POC Glucose Lactic Acid Calcium Phosphorus Magnesium Direct Bilirubin AST ALT Alkaline Phosphatase Lactate Dehydrogenase Troponin T C-Reactive Protein Total Protein Albumin Prealbumin Triglycerides Cholesterol LDL Cholesterol Direct HDL Cholesterol Urine pH Urine WBC (Auto) Urine Creatinine Urine Total Protein Fluid Total Protein Vancomycin Trough Rheumatoid Factor Complement C4 Miscellaneous Test Crossmatch See Detail 11/07/16 11/07/16 11/07/16 12:52 18:51 21:26 WBC RBC Hgb Hct MCV MCH MCHC RDW Plt Count Lymph % (Auto) [place] % (Auto) Lymph # [place] # Baso # Seg Neutrophils % Seg Neuts % (Manual) Lymphocytes % (Manual) Monocytes % (Manual) Eosinophils % (Manual) Basophils % (Manual) Nucleated RBC % Seg Neutrophils # Seg Neutrophils # Man Lymphocytes # (Manual) Monocytes # (Manual) Eosinophils # (Manual) Basophils # (Manual) PT INR Fibrinogen dRVVT Confirm Interp Factor V Activity POC ABG pH 7.523 H POC ABG pCO2 34.6 L POC ABG pO2 53 L ABG pO2 ABG HCO3 ABG Base Excess ABG Hemoglobin Oxyhemoglobin Sodium Potassium Chloride Carbon Dioxide BUN Creatinine Glucose POC Glucose 142 H 155 H Lactic Acid Calcium Phosphorus Magnesium Direct Bilirubin AST ALT Alkaline Phosphatase Lactate Dehydrogenase Troponin T C-Reactive Protein Total Protein Albumin Prealbumin Triglycerides Cholesterol LDL Cholesterol Direct HDL Cholesterol Urine pH Urine WBC (Auto) Urine Creatinine Urine Total Protein Fluid Total Protein Vancomycin Trough Rheumatoid Factor Complement C4 Miscellaneous Test Crossmatch 11/07/16 11/08/16 11/08/16 21:34 13:03 23:37 WBC RBC 2.63 L Hgb 7.7 L Hct 22.7 L MCV MCH MCHC RDW 17.0 H Plt Count Lymph % (Auto) [place] % (Auto) Lymph # [place] # Baso # Seg Neutrophils % Seg Neuts % (Manual) Lymphocytes % (Manual) Monocytes % (Manual) Eosinophils % (Manual) Basophils % (Manual) Nucleated RBC % Seg Neutrophils # Seg Neutrophils # Man Lymphocytes # (Manual) Monocytes # (Manual) Eosinophils # (Manual) Basophils # (Manual) PT INR Fibrinogen dRVVT Confirm Interp Factor V Activity POC ABG pH 7.478 H POC ABG pCO2 34.0 L POC ABG pO2 50 L ABG pO2 ABG HCO3 ABG Base Excess ABG Hemoglobin Oxyhemoglobin Sodium Potassium Chloride Carbon Dioxide BUN Creatinine Glucose POC Glucose 113 H Lactic Acid Calcium Phosphorus Magnesium Direct Bilirubin AST ALT Alkaline Phosphatase Lactate Dehydrogenase Troponin T C-Reactive Protein Total Protein Albumin Prealbumin Triglycerides Cholesterol LDL Cholesterol Direct HDL Cholesterol Urine pH Urine WBC (Auto) Urine Creatinine Urine Total Protein Fluid Total Protein Vancomycin Trough Rheumatoid Factor Complement C4 Miscellaneous Test Crossmatch 11/09/16 11/09/16 11/09/16 04:35 10:15 18:21 WBC RBC 2.68 L Hgb 7.8 L Hct 23.3 L MCV MCH MCHC RDW 17.0 H Plt Count Lymph % (Auto) [place] % (Auto) 12.1 H Lymph # [place] # 1.1 H Baso # Seg Neutrophils % Seg Neuts % (Manual) Lymphocytes % (Manual) Monocytes % (Manual) Eosinophils % (Manual) Basophils % (Manual) Nucleated RBC % Seg Neutrophils # Seg Neutrophils # Man Lymphocytes # (Manual) Monocytes # (Manual) Eosinophils # (Manual) Basophils # (Manual) PT INR Fibrinogen dRVVT Confirm Interp Factor V Activity POC ABG pH POC ABG pCO2 POC ABG pO2 ABG pO2 ABG HCO3 ABG Base Excess ABG Hemoglobin Oxyhemoglobin Sodium Potassium Chloride Carbon Dioxide BUN 51 H Creatinine 1.8 H Glucose POC Glucose 60 L Lactic Acid Calcium 8.3 L Phosphorus Magnesium Direct Bilirubin AST ALT Alkaline Phosphatase Lactate Dehydrogenase Troponin T C-Reactive Protein Total Protein Albumin Prealbumin Triglycerides Cholesterol LDL Cholesterol Direct HDL Cholesterol Urine pH Urine WBC (Auto) Urine Creatinine Urine Total Protein Fluid Total Protein Vancomycin Trough Rheumatoid Factor Complement C4 Miscellaneous Test Crossmatch 11/09/16 11/10/16 11/10/16 18:55 07:00 11:51 WBC RBC Hgb Hct MCV MCH MCHC RDW Plt Count Lymph % (Auto) [place] % (Auto) Lymph # [place] # Baso # Seg Neutrophils % Seg Neuts % (Manual) Lymphocytes % (Manual) Monocytes % (Manual) Eosinophils % (Manual) Basophils % (Manual) Nucleated RBC % Seg Neutrophils # Seg Neutrophils # Man Lymphocytes # (Manual) Monocytes # (Manual) Eosinophils # (Manual) Basophils # (Manual) PT INR Fibrinogen dRVVT Confirm Interp Factor V Activity POC ABG pH POC ABG pCO2 POC ABG pO2 ABG pO2 ABG HCO3 ABG Base Excess ABG Hemoglobin Oxyhemoglobin Sodium Potassium 3.0 L D Chloride 97.4 L Carbon Dioxide BUN 28 H Creatinine 1.3 H Glucose POC Glucose 68 L 120 H Lactic Acid Calcium 7.8 L Phosphorus Magnesium Direct Bilirubin AST ALT Alkaline Phosphatase Lactate Dehydrogenase Troponin T C-Reactive Protein Total Protein Albumin Prealbumin Triglycerides Cholesterol LDL Cholesterol Direct HDL Cholesterol Urine pH Urine WBC (Auto) Urine Creatinine Urine Total Protein Fluid Total Protein Vancomycin Trough Rheumatoid Factor Complement C4 Miscellaneous Test Crossmatch 11/10/16 11/11/16 11/11/16 14:20 06:59 06:59 WBC RBC 2.81 L Hgb 8.1 L Hct 24.4 L MCV MCH MCHC RDW 16.4 H Plt Count Lymph % (Auto) [place] % (Auto) 10.8 H Lymph # [place] # 1.0 H Baso # Seg Neutrophils % Seg Neuts % (Manual) Lymphocytes % (Manual) Monocytes % (Manual) Eosinophils % (Manual) Basophils % (Manual) Nucleated RBC % Seg Neutrophils # Seg Neutrophils # Man Lymphocytes # (Manual) Monocytes # (Manual) Eosinophils # (Manual) Basophils # (Manual) PT INR Fibrinogen dRVVT Confirm Interp Factor V Activity POC ABG pH POC ABG pCO2 POC ABG pO2 ABG pO2 ABG HCO3 ABG Base Excess ABG Hemoglobin Oxyhemoglobin Sodium Potassium Chloride Carbon Dioxide BUN Creatinine Glucose POC Glucose Lactic Acid Calcium Phosphorus Magnesium Direct Bilirubin AST ALT Alkaline Phosphatase Lactate Dehydrogenase 196 H Troponin T C-Reactive Protein Total Protein 6.1 L Albumin Prealbumin Triglycerides Cholesterol LDL Cholesterol Direct HDL Cholesterol Urine pH Urine WBC (Auto) Urine Creatinine Urine Total Protein Fluid Total Protein < 3.0 L Vancomycin Trough Rheumatoid Factor Complement C4 Miscellaneous Test Crossmatch 11/11/16 11/11/16 11/12/16 06:59 09:50 04:00 WBC RBC Hgb Hct MCV MCH MCHC RDW Plt Count Lymph % (Auto) [place] % (Auto) Lymph # [place] # Baso # Seg Neutrophils % Seg Neuts % (Manual) Lymphocytes % (Manual) Monocytes % (Manual) Eosinophils % (Manual) Basophils % (Manual) Nucleated RBC % Seg Neutrophils # Seg Neutrophils # Man Lymphocytes # (Manual) Monocytes # (Manual) Eosinophils # (Manual) Basophils # (Manual) PT INR 1.18 H Fibrinogen dRVVT Confirm Interp Factor V Activity POC ABG pH POC ABG pCO2 POC ABG pO2 ABG pO2 ABG HCO3 ABG Base Excess ABG Hemoglobin Oxyhemoglobin Sodium 136 L 133 L Potassium Chloride 96.1 L 94.8 L Carbon Dioxide 21 L BUN 37 H 42 H Creatinine 1.8 H 2.0 H Glucose POC Glucose Lactic Acid Calcium Phosphorus Magnesium Direct Bilirubin AST ALT Alkaline Phosphatase Lactate Dehydrogenase Troponin T C-Reactive Protein Total Protein Albumin Prealbumin Triglycerides Cholesterol LDL Cholesterol Direct HDL Cholesterol Urine pH Urine WBC (Auto) Urine Creatinine Urine Total Protein Fluid Total Protein Vancomycin Trough Rheumatoid Factor Complement C4 Miscellaneous Test Crossmatch 11/12/16 11/12/16 11/13/16 04:00 23:55 05:53 WBC RBC Hgb 8.9 L Hct 27.2 L MCV MCH MCHC RDW Plt Count Lymph % (Auto) [place] % (Auto) Lymph # [place] # Baso # Seg Neutrophils % Seg Neuts % (Manual) Lymphocytes % (Manual) Monocytes % (Manual) Eosinophils % (Manual) Basophils % (Manual) Nucleated RBC % Seg Neutrophils # Seg Neutrophils # Man Lymphocytes # (Manual) Monocytes # (Manual) Eosinophils # (Manual) Basophils # (Manual) PT INR Fibrinogen dRVVT Confirm Interp Factor V Activity POC ABG pH POC ABG pCO2 POC ABG pO2 ABG pO2 ABG HCO3 ABG Base Excess ABG Hemoglobin Oxyhemoglobin Sodium Potassium Chloride Carbon Dioxide BUN Creatinine Glucose POC Glucose 132 H 120 H Lactic Acid Calcium Phosphorus Magnesium Direct Bilirubin AST ALT Alkaline Phosphatase Lactate Dehydrogenase Troponin T C-Reactive Protein Total Protein Albumin Prealbumin Triglycerides Cholesterol LDL Cholesterol Direct HDL Cholesterol Urine pH Urine WBC (Auto) Urine Creatinine Urine Total Protein Fluid Total Protein Vancomycin Trough Rheumatoid Factor Complement C4 Miscellaneous Test Crossmatch 11/13/16 11/13/16 11/13/16 11:43 17:09 23:41 WBC RBC Hgb Hct MCV MCH MCHC RDW Plt Count Lymph % (Auto) [place] % (Auto) Lymph # [place] # Baso # Seg Neutrophils % Seg Neuts % (Manual) Lymphocytes % (Manual) Monocytes % (Manual) Eosinophils % (Manual) Basophils % (Manual) Nucleated RBC % Seg Neutrophils # Seg Neutrophils # Man Lymphocytes # (Manual) Monocytes # (Manual) Eosinophils # (Manual) Basophils # (Manual) PT INR Fibrinogen dRVVT Confirm Interp Factor V Activity POC ABG pH POC ABG pCO2 POC ABG pO2 ABG pO2 ABG HCO3 ABG Base Excess ABG Hemoglobin Oxyhemoglobin Sodium Potassium Chloride Carbon Dioxide BUN Creatinine Glucose POC Glucose 114 H 113 H 108 H Lactic Acid Calcium Phosphorus Magnesium Direct Bilirubin AST ALT Alkaline Phosphatase Lactate Dehydrogenase Troponin T C-Reactive Protein Total Protein Albumin Prealbumin Triglycerides Cholesterol LDL Cholesterol Direct HDL Cholesterol Urine pH Urine WBC (Auto) Urine Creatinine Urine Total Protein Fluid Total Protein Vancomycin Trough Rheumatoid Factor Complement C4 Miscellaneous Test Crossmatch 11/13/16 11/15/16 11/15/16 Unknown 00:37 03:30 WBC 11.2 H RBC 2.72 L Hgb 7.6 L Hct 23.4 L MCV MCH MCHC RDW 16.5 H Plt Count Lymph % (Auto) [place] % (Auto) Lymph # [place] # Baso # Seg Neutrophils % Seg Neuts % (Manual) Lymphocytes % (Manual) Monocytes % (Manual) Eosinophils % (Manual) Basophils % (Manual) Nucleated RBC % Seg Neutrophils # Seg Neutrophils # Man Lymphocytes # (Manual) Monocytes # (Manual) Eosinophils # (Manual) Basophils # (Manual) PT INR Fibrinogen dRVVT Confirm Interp Factor V Activity POC ABG pH POC ABG pCO2 POC ABG pO2 ABG pO2 ABG HCO3 ABG Base Excess ABG Hemoglobin Oxyhemoglobin Sodium 135 L Potassium Chloride 95.2 L Carbon Dioxide BUN 52 H Creatinine 2.2 H Glucose POC Glucose 108 H Lactic Acid Calcium Phosphorus Magnesium Direct Bilirubin AST ALT Alkaline Phosphatase Lactate Dehydrogenase Troponin T C-Reactive Protein Total Protein Albumin Prealbumin Triglycerides Cholesterol LDL Cholesterol Direct HDL Cholesterol Urine pH Urine WBC (Auto) Urine Creatinine Urine Total Protein Fluid Total Protein Vancomycin Trough Rheumatoid Factor Complement C4 Miscellaneous Test Crossmatch 11/15/16 11/15/16 11/15/16 03:30 05:04 11:50 WBC RBC Hgb Hct MCV MCH MCHC RDW Plt Count Lymph % (Auto) [place] % (Auto) Lymph # [place] # Baso # Seg Neutrophils % Seg Neuts % (Manual) Lymphocytes % (Manual) Monocytes % (Manual) Eosinophils % (Manual) Basophils % (Manual) Nucleated RBC % Seg Neutrophils # Seg Neutrophils # Man Lymphocytes # (Manual) Monocytes # (Manual) Eosinophils # (Manual) Basophils # (Manual) PT INR Fibrinogen dRVVT Confirm Interp Factor V Activity POC ABG pH POC ABG pCO2 POC ABG pO2 ABG pO2 ABG HCO3 ABG Base Excess ABG Hemoglobin Oxyhemoglobin Sodium Potassium 3.4 L Chloride Carbon Dioxide BUN 25 H Creatinine 1.5 H Glucose 103 H POC Glucose 121 H 144 H Lactic Acid Calcium Phosphorus Magnesium Direct Bilirubin AST ALT Alkaline Phosphatase Lactate Dehydrogenase Troponin T C-Reactive Protein Total Protein Albumin Prealbumin Triglycerides Cholesterol LDL Cholesterol Direct HDL Cholesterol Urine pH Urine WBC (Auto) Urine Creatinine Urine Total Protein Fluid Total Protein Vancomycin Trough Rheumatoid Factor Complement C4 Miscellaneous Test Crossmatch 11/15/16 11/15/16 11/16/16 21:28 23:20 11:44 WBC RBC Hgb Hct MCV MCH MCHC RDW Plt Count Lymph % (Auto) [place] % (Auto) Lymph # [place] # Baso # Seg Neutrophils % Seg Neuts % (Manual) Lymphocytes % (Manual) Monocytes % (Manual) Eosinophils % (Manual) Basophils % (Manual) Nucleated RBC % Seg Neutrophils # Seg Neutrophils # Man Lymphocytes # (Manual) Monocytes # (Manual) Eosinophils # (Manual) Basophils # (Manual) PT INR Fibrinogen dRVVT Confirm Interp Factor V Activity POC ABG pH 7.462 H POC ABG pCO2 POC ABG pO2 71 L ABG pO2 ABG HCO3 ABG Base Excess ABG Hemoglobin Oxyhemoglobin Sodium Potassium Chloride Carbon Dioxide BUN Creatinine Glucose POC Glucose 116 H 133 H Lactic Acid Calcium Phosphorus Magnesium Direct Bilirubin AST ALT Alkaline Phosphatase Lactate Dehydrogenase Troponin T C-Reactive Protein Total Protein Albumin Prealbumin Triglycerides Cholesterol LDL Cholesterol Direct HDL Cholesterol Urine pH Urine WBC (Auto) Urine Creatinine Urine Total Protein Fluid Total Protein Vancomycin Trough Rheumatoid Factor Complement C4 Miscellaneous Test Crossmatch 11/16/16 11/16/16 11/16/16 12:20 17:05 23:35 WBC 11.7 H RBC 2.73 L Hgb 7.6 L Hct 23.7 L MCV MCH MCHC RDW 16.6 H Plt Count Lymph % (Auto) [place] % (Auto) Lymph # [place] # Baso # Seg Neutrophils % Seg Neuts % (Manual) Lymphocytes % (Manual) Monocytes % (Manual) Eosinophils % (Manual) Basophils % (Manual) Nucleated RBC % Seg Neutrophils # Seg Neutrophils # Man Lymphocytes # (Manual) Monocytes # (Manual) Eosinophils # (Manual) Basophils # (Manual) PT INR Fibrinogen dRVVT Confirm Interp Factor V Activity POC ABG pH POC ABG pCO2 POC ABG pO2 ABG pO2 ABG HCO3 ABG Base Excess ABG Hemoglobin Oxyhemoglobin Sodium Potassium Chloride Carbon Dioxide BUN Creatinine Glucose POC Glucose 154 H 125 H Lactic Acid Calcium Phosphorus Magnesium Direct Bilirubin AST ALT Alkaline Phosphatase Lactate Dehydrogenase Troponin T C-Reactive Protein Total Protein Albumin Prealbumin Triglycerides Cholesterol LDL Cholesterol Direct HDL Cholesterol Urine pH Urine WBC (Auto) Urine Creatinine Urine Total Protein Fluid Total Protein Vancomycin Trough Rheumatoid Factor Complement C4 Miscellaneous Test Crossmatch 11/17/16 11/17/16 11/17/16 03:20 03:20 03:20 WBC RBC 2.55 L Hgb 7.3 L Hct 21.9 L MCV MCH MCHC RDW 16.6 H Plt Count Lymph % (Auto) [place] % (Auto) 11.5 H Lymph # [place] # 1.1 H Baso # Seg Neutrophils % Seg Neuts % (Manual) Lymphocytes % (Manual) Monocytes % (Manual) Eosinophils % (Manual) Basophils % (Manual) Nucleated RBC % Seg Neutrophils # Seg Neutrophils # Man Lymphocytes # (Manual) Monocytes # (Manual) Eosinophils # (Manual) Basophils # (Manual) PT 16.8 H INR 1.37 H Fibrinogen dRVVT Confirm Interp Factor V Activity POC ABG pH POC ABG pCO2 POC ABG pO2 ABG pO2 ABG HCO3 ABG Base Excess ABG Hemoglobin Oxyhemoglobin Sodium Potassium 3.5 L Chloride Carbon Dioxide BUN 21 H Creatinine Glucose POC Glucose Lactic Acid Calcium 7.9 L Phosphorus Magnesium Direct Bilirubin AST ALT Alkaline Phosphatase Lactate Dehydrogenase Troponin T C-Reactive Protein Total Protein Albumin Prealbumin Triglycerides Cholesterol LDL Cholesterol Direct HDL Cholesterol Urine pH Urine WBC (Auto) Urine Creatinine Urine Total Protein Fluid Total Protein Vancomycin Trough Rheumatoid Factor Complement C4 Miscellaneous Test Crossmatch 11/17/16 11/17/16 11/17/16 06:34 11:21 21:22 WBC RBC Hgb Hct MCV MCH MCHC RDW Plt Count Lymph % (Auto) [place] % (Auto) Lymph # [place] # Baso # Seg Neutrophils % Seg Neuts % (Manual) Lymphocytes % (Manual) Monocytes % (Manual) Eosinophils % (Manual) Basophils % (Manual) Nucleated RBC % Seg Neutrophils # Seg Neutrophils # Man Lymphocytes # (Manual) Monocytes # (Manual) Eosinophils # (Manual) Basophils # (Manual) PT INR Fibrinogen dRVVT Confirm Interp Factor V Activity POC ABG pH 7.467 H POC ABG pCO2 POC ABG pO2 73 L ABG pO2 ABG HCO3 ABG Base Excess ABG Hemoglobin Oxyhemoglobin Sodium Potassium Chloride Carbon Dioxide BUN Creatinine Glucose POC Glucose 121 H 119 H Lactic Acid Calcium Phosphorus Magnesium Direct Bilirubin AST ALT Alkaline Phosphatase Lactate Dehydrogenase Troponin T C-Reactive Protein Total Protein Albumin Prealbumin Triglycerides Cholesterol LDL Cholesterol Direct HDL Cholesterol Urine pH Urine WBC (Auto) Urine Creatinine Urine Total Protein Fluid Total Protein Vancomycin Trough Rheumatoid Factor Complement C4 Miscellaneous Test Crossmatch 11/18/16 11/18/16 11/19/16 12:16 17:19 00:00 WBC RBC Hgb Hct MCV MCH MCHC RDW Plt Count Lymph % (Auto) [place] % (Auto) Lymph # [place] # Baso # Seg Neutrophils % Seg Neuts % (Manual) Lymphocytes % (Manual) Monocytes % (Manual) Eosinophils % (Manual) Basophils % (Manual) Nucleated RBC % Seg Neutrophils # Seg Neutrophils # Man Lymphocytes # (Manual) Monocytes # (Manual) Eosinophils # (Manual) Basophils # (Manual) PT INR Fibrinogen dRVVT Confirm Interp Factor V Activity POC ABG pH POC ABG pCO2 POC ABG pO2 ABG pO2 ABG HCO3 ABG Base Excess ABG Hemoglobin Oxyhemoglobin Sodium Potassium Chloride Carbon Dioxide BUN Creatinine Glucose POC Glucose 124 H 162 H 139 H Lactic Acid Calcium Phosphorus Magnesium Direct Bilirubin AST ALT Alkaline Phosphatase Lactate Dehydrogenase Troponin T C-Reactive Protein Total Protein Albumin Prealbumin Triglycerides Cholesterol LDL Cholesterol Direct HDL Cholesterol Urine pH Urine WBC (Auto) Urine Creatinine Urine Total Protein Fluid Total Protein Vancomycin Trough Rheumatoid Factor Complement C4 Miscellaneous Test Crossmatch 11/19/16 11/19/16 11/20/16 05:00 12:43 00:40 WBC RBC Hgb Hct MCV MCH MCHC RDW Plt Count Lymph % (Auto) [place] % (Auto) Lymph # [place] # Baso # Seg Neutrophils % Seg Neuts % (Manual) Lymphocytes % (Manual) Monocytes % (Manual) Eosinophils % (Manual) Basophils % (Manual) Nucleated RBC % Seg Neutrophils # Seg Neutrophils # Man Lymphocytes # (Manual) Monocytes # (Manual) Eosinophils # (Manual) Basophils # (Manual) PT INR Fibrinogen dRVVT Confirm Interp Factor V Activity POC ABG pH POC ABG pCO2 POC ABG pO2 ABG pO2 ABG HCO3 ABG Base Excess ABG Hemoglobin Oxyhemoglobin Sodium Potassium Chloride Carbon Dioxide BUN Creatinine Glucose POC Glucose 110 H 125 H 136 H Lactic Acid Calcium Phosphorus Magnesium Direct Bilirubin AST ALT Alkaline Phosphatase Lactate Dehydrogenase Troponin T C-Reactive Protein Total Protein Albumin Prealbumin Triglycerides Cholesterol LDL Cholesterol Direct HDL Cholesterol Urine pH Urine WBC (Auto) Urine Creatinine Urine Total Protein Fluid Total Protein Vancomycin Trough Rheumatoid Factor Complement C4 Miscellaneous Test Crossmatch 11/20/16 11/20/16 11/20/16 05:00 05:00 05:51 WBC 13.1 H RBC 2.74 L Hgb 7.7 L Hct 23.6 L MCV MCH MCHC RDW 16.9 H Plt Count Lymph % (Auto) [place] % (Auto) 10.8 H Lymph # [place] # 1.4 H Baso # Seg Neutrophils % Seg Neuts % (Manual) Lymphocytes % (Manual) Monocytes % (Manual) Eosinophils % (Manual) Basophils % (Manual) Nucleated RBC % Seg Neutrophils # 7.9 H Seg Neutrophils # Man Lymphocytes # (Manual) Monocytes # (Manual) Eosinophils # (Manual) Basophils # (Manual) PT INR Fibrinogen dRVVT Confirm Interp Factor V Activity POC ABG pH POC ABG pCO2 POC ABG pO2 ABG pO2 ABG HCO3 ABG Base Excess ABG Hemoglobin Oxyhemoglobin Sodium Potassium Chloride Carbon Dioxide BUN 31 H Creatinine 1.8 H Glucose 129 H POC Glucose 133 H Lactic Acid Calcium Phosphorus Magnesium Direct Bilirubin AST ALT Alkaline Phosphatase Lactate Dehydrogenase Troponin T C-Reactive Protein Total Protein Albumin Prealbumin Triglycerides Cholesterol LDL Cholesterol Direct HDL Cholesterol Urine pH Urine WBC (Auto) Urine Creatinine Urine Total Protein Fluid Total Protein Vancomycin Trough Rheumatoid Factor Complement C4 Miscellaneous Test Crossmatch 11/20/16 11/20/16 11/21/16 12:40 18:10 01:20 WBC RBC Hgb Hct MCV MCH MCHC RDW Plt Count Lymph % (Auto) [place] % (Auto) Lymph # [place] # Baso # Seg Neutrophils % Seg Neuts % (Manual) Lymphocytes % (Manual) Monocytes % (Manual) Eosinophils % (Manual) Basophils % (Manual) Nucleated RBC % Seg Neutrophils # Seg Neutrophils # Man Lymphocytes # (Manual) Monocytes # (Manual) Eosinophils # (Manual) Basophils # (Manual) PT INR Fibrinogen dRVVT Confirm Interp Factor V Activity POC ABG pH POC ABG pCO2 POC ABG pO2 ABG pO2 ABG HCO3 ABG Base Excess ABG Hemoglobin Oxyhemoglobin Sodium Potassium Chloride Carbon Dioxide BUN Creatinine Glucose POC Glucose 134 H 138 H 136 H Lactic Acid Calcium Phosphorus Magnesium Direct Bilirubin AST ALT Alkaline Phosphatase Lactate Dehydrogenase Troponin T C-Reactive Protein Total Protein Albumin Prealbumin Triglycerides Cholesterol LDL Cholesterol Direct HDL Cholesterol Urine pH Urine WBC (Auto) Urine Creatinine Urine Total Protein Fluid Total Protein Vancomycin Trough Rheumatoid Factor Complement C4 Miscellaneous Test Crossmatch 11/21/16 11/21/16 11/21/16 07:04 07:45 07:45 WBC 22.0 H RBC 2.91 L Hgb 8.2 L Hct 25.4 L MCV MCH MCHC RDW 17.1 H Plt Count Lymph % (Auto) [place] % (Auto) Lymph # [place] # Baso # Seg Neutrophils % Seg Neuts % (Manual) Lymphocytes % (Manual) 8.0 L Monocytes % (Manual) Eosinophils % (Manual) Basophils % (Manual) Nucleated RBC % Seg Neutrophils # Seg Neutrophils # Man 14.7 H Lymphocytes # (Manual) Monocytes # (Manual) 1.1 H Eosinophils # (Manual) Basophils # (Manual) PT INR Fibrinogen dRVVT Confirm Interp Factor V Activity POC ABG pH POC ABG pCO2 POC ABG pO2 ABG pO2 ABG HCO3 ABG Base Excess ABG Hemoglobin Oxyhemoglobin Sodium Potassium Chloride Carbon Dioxide BUN 42 H Creatinine 2.0 H Glucose POC Glucose 108 H Lactic Acid Calcium Phosphorus Magnesium Direct Bilirubin AST ALT Alkaline Phosphatase Lactate Dehydrogenase Troponin T C-Reactive Protein Total Protein Albumin Prealbumin Triglycerides Cholesterol LDL Cholesterol Direct HDL Cholesterol Urine pH Urine WBC (Auto) Urine Creatinine Urine Total Protein Fluid Total Protein Vancomycin Trough Rheumatoid Factor Complement C4 Miscellaneous Test Crossmatch 11/21/16 11/21/16 11/21/16 08:38 10:09 11:20 WBC RBC Hgb Hct MCV MCH MCHC RDW Plt Count Lymph % (Auto) [place] % (Auto) Lymph # [place] # Baso # Seg Neutrophils % Seg Neuts % (Manual) Lymphocytes % (Manual) Monocytes % (Manual) Eosinophils % (Manual) Basophils % (Manual) Nucleated RBC % Seg Neutrophils # Seg Neutrophils # Man Lymphocytes # (Manual) Monocytes # (Manual) Eosinophils # (Manual) Basophils # (Manual) PT INR Fibrinogen dRVVT Confirm Interp Factor V Activity POC ABG pH 7.346 L POC ABG pCO2 34.4 L POC ABG pO2 314 H ABG pO2 ABG HCO3 ABG Base Excess ABG Hemoglobin Oxyhemoglobin Sodium Potassium Chloride Carbon Dioxide BUN Creatinine Glucose POC Glucose 195 H 153 H Lactic Acid Calcium Phosphorus Magnesium Direct Bilirubin AST ALT Alkaline Phosphatase Lactate Dehydrogenase Troponin T C-Reactive Protein Total Protein Albumin Prealbumin Triglycerides Cholesterol LDL Cholesterol Direct HDL Cholesterol Urine pH Urine WBC (Auto) Urine Creatinine Urine Total Protein Fluid Total Protein Vancomycin Trough Rheumatoid Factor Complement C4 Miscellaneous Test Crossmatch 11/21/16 11/22/16 11/22/16 23:37 04:48 05:00 WBC 29.7 H RBC 2.73 L Hgb 7.5 L Hct 24.2 L MCV MCH 27 L MCHC RDW 17.4 H Plt Count Lymph % (Auto) [place] % (Auto) Lymph # [place] # Baso # Seg Neutrophils % Seg Neuts % (Manual) Lymphocytes % (Manual) 7.0 L Monocytes % (Manual) Eosinophils % (Manual) Basophils % (Manual) Nucleated RBC % Seg Neutrophils # Seg Neutrophils # Man 15.4 H Lymphocytes # (Manual) Monocytes # (Manual) Eosinophils # (Manual) Basophils # (Manual) PT INR Fibrinogen dRVVT Confirm Interp Factor V Activity POC ABG pH POC ABG pCO2 24.6 L POC ABG pO2 189 H ABG pO2 ABG HCO3 ABG Base Excess ABG Hemoglobin Oxyhemoglobin Sodium Potassium Chloride Carbon Dioxide BUN Creatinine Glucose POC Glucose 65 L Lactic Acid Calcium Phosphorus Magnesium Direct Bilirubin AST ALT Alkaline Phosphatase Lactate Dehydrogenase Troponin T C-Reactive Protein Total Protein Albumin Prealbumin Triglycerides Cholesterol LDL Cholesterol Direct HDL Cholesterol Urine pH Urine WBC (Auto) Urine Creatinine Urine Total Protein Fluid Total Protein Vancomycin Trough Rheumatoid Factor Complement C4 Miscellaneous Test Crossmatch 11/22/16 11/23/16 11/23/16 05:00 03:44 04:06 WBC RBC 2.52 L Hgb 7.2 L Hct 21.5 L MCV MCH MCHC RDW 17.1 H Plt Count Lymph % (Auto) [place] % (Auto) 12.4 H Lymph # [place] # 1.4 H Baso # Seg Neutrophils % Seg Neuts % (Manual) Lymphocytes % (Manual) Monocytes % (Manual) Eosinophils % (Manual) Basophils % (Manual) Nucleated RBC % Seg Neutrophils # Seg Neutrophils # Man Lymphocytes # (Manual) Monocytes # (Manual) Eosinophils # (Manual) Basophils # (Manual) PT INR Fibrinogen dRVVT Confirm Interp Factor V Activity POC ABG pH 7.493 H POC ABG pCO2 29.5 L POC ABG pO2 49 L ABG pO2 ABG HCO3 ABG Base Excess ABG Hemoglobin Oxyhemoglobin Sodium 134 L Potassium Chloride 95.9 L Carbon Dioxide 14 L D BUN 51 H Creatinine 2.6 H Glucose POC Glucose Lactic Acid Calcium Phosphorus Magnesium Direct Bilirubin AST ALT Alkaline Phosphatase Lactate Dehydrogenase Troponin T C-Reactive Protein Total Protein Albumin Prealbumin Triglycerides Cholesterol LDL Cholesterol Direct HDL Cholesterol Urine pH Urine WBC (Auto) Urine Creatinine Urine Total Protein Fluid Total Protein Vancomycin Trough Rheumatoid Factor Complement C4 Miscellaneous Test Crossmatch 11/23/16 11/23/16 11/24/16 04:06 11:29 06:39 WBC RBC Hgb Hct MCV MCH MCHC RDW Plt Count Lymph % (Auto) [place] % (Auto) Lymph # [place] # Baso # Seg Neutrophils % Seg Neuts % (Manual) Lymphocytes % (Manual) Monocytes % (Manual) Eosinophils % (Manual) Basophils % (Manual) Nucleated RBC % Seg Neutrophils # Seg Neutrophils # Man Lymphocytes # (Manual) Monocytes # (Manual) Eosinophils # (Manual) Basophils # (Manual) PT INR Fibrinogen dRVVT Confirm Interp Factor V Activity POC ABG pH POC ABG pCO2 POC ABG pO2 ABG pO2 ABG HCO3 ABG Base Excess ABG Hemoglobin Oxyhemoglobin Sodium 136 L Potassium Chloride 95.2 L Carbon Dioxide BUN 60 H Creatinine 2.9 H Glucose POC Glucose 69 L 305 H Lactic Acid Calcium Phosphorus Magnesium 1.60 L Direct Bilirubin AST ALT Alkaline Phosphatase Lactate Dehydrogenase Troponin T C-Reactive Protein Total Protein Albumin Prealbumin Triglycerides Cholesterol LDL Cholesterol Direct HDL Cholesterol Urine pH Urine WBC (Auto) Urine Creatinine Urine Total Protein Fluid Total Protein Vancomycin Trough Rheumatoid Factor Complement C4 Miscellaneous Test Crossmatch 11/24/16 11/24/16 11/24/16 06:43 08:08 08:08 WBC 11.2 H RBC 2.47 L Hgb 6.8 L Hct 20.6 L MCV MCH MCHC RDW 17.0 H Plt Count Lymph % (Auto) [place] % (Auto) 10.3 H Lymph # [place] # 1.2 H Baso # Seg Neutrophils % Seg Neuts % (Manual) Lymphocytes % (Manual) Monocytes % (Manual) Eosinophils % (Manual) Basophils % (Manual) Nucleated RBC % Seg Neutrophils # Seg Neutrophils # Man Lymphocytes # (Manual) Monocytes # (Manual) Eosinophils # (Manual) Basophils # (Manual) PT INR Fibrinogen dRVVT Confirm Interp Factor V Activity POC ABG pH POC ABG pCO2 POC ABG pO2 ABG pO2 ABG HCO3 ABG Base Excess ABG Hemoglobin Oxyhemoglobin Sodium 135 L Potassium Chloride 96.3 L Carbon Dioxide BUN 61 H Creatinine 3.1 H Glucose POC Glucose 62 L Lactic Acid Calcium 8.2 L Phosphorus Magnesium Direct Bilirubin AST ALT Alkaline Phosphatase Lactate Dehydrogenase Troponin T C-Reactive Protein Total Protein Albumin Prealbumin Triglycerides Cholesterol LDL Cholesterol Direct HDL Cholesterol Urine pH Urine WBC (Auto) Urine Creatinine Urine Total Protein Fluid Total Protein Vancomycin Trough Rheumatoid Factor Complement C4 Miscellaneous Test Crossmatch 11/24/16 11/24/16 11/24/16 08:34 11:20 12:41 WBC RBC Hgb Hct MCV MCH MCHC RDW Plt Count Lymph % (Auto) [place] % (Auto) Lymph # [place] # Baso # Seg Neutrophils % Seg Neuts % (Manual) Lymphocytes % (Manual) Monocytes % (Manual) Eosinophils % (Manual) Basophils % (Manual) Nucleated RBC % Seg Neutrophils # Seg Neutrophils # Man Lymphocytes # (Manual) Monocytes # (Manual) Eosinophils # (Manual) Basophils # (Manual) PT INR Fibrinogen dRVVT Confirm Interp Factor V Activity POC ABG pH POC ABG pCO2 POC ABG pO2 ABG pO2 ABG HCO3 ABG Base Excess ABG Hemoglobin Oxyhemoglobin Sodium Potassium Chloride Carbon Dioxide BUN Creatinine Glucose POC Glucose 108 H Lactic Acid Calcium Phosphorus Magnesium 1.60 L Direct Bilirubin AST ALT Alkaline Phosphatase Lactate Dehydrogenase Troponin T C-Reactive Protein Total Protein Albumin Prealbumin Triglycerides Cholesterol LDL Cholesterol Direct HDL Cholesterol Urine pH Urine WBC (Auto) Urine Creatinine Urine Total Protein Fluid Total Protein Vancomycin Trough Rheumatoid Factor Complement C4 Miscellaneous Test Crossmatch See Detail 11/25/16 11/25/16 11/25/16 00:03 04:42 04:42 WBC RBC 3.03 L Hgb 8.6 L Hct 25.3 L MCV MCH MCHC RDW 16.2 H Plt Count Lymph % (Auto) [place] % (Auto) 8.1 H Lymph # [place] # Baso # Seg Neutrophils % 71.3 H Seg Neuts % (Manual) Lymphocytes % (Manual) Monocytes % (Manual) Eosinophils % (Manual) Basophils % (Manual) Nucleated RBC % Seg Neutrophils # Seg Neutrophils # Man Lymphocytes # (Manual) Monocytes # (Manual) Eosinophils # (Manual) Basophils # (Manual) PT INR Fibrinogen dRVVT Confirm Interp Factor V Activity POC ABG pH POC ABG pCO2 POC ABG pO2 ABG pO2 ABG HCO3 ABG Base Excess ABG Hemoglobin Oxyhemoglobin Sodium Potassium Chloride Carbon Dioxide BUN 61 H Creatinine 3.0 H Glucose 102 H POC Glucose 113 H Lactic Acid Calcium 8.2 L Phosphorus Magnesium Direct Bilirubin AST ALT Alkaline Phosphatase 142 H Lactate Dehydrogenase Troponin T C-Reactive Protein Total Protein 5.7 L Albumin 1.5 L Prealbumin Triglycerides Cholesterol LDL Cholesterol Direct HDL Cholesterol Urine pH Urine WBC (Auto) Urine Creatinine Urine Total Protein Fluid Total Protein Vancomycin Trough Rheumatoid Factor Complement C4 Miscellaneous Test Crossmatch 11/25/16 11/25/16 11/25/16 05:12 11:31 14:12 WBC RBC Hgb Hct MCV MCH MCHC RDW Plt Count Lymph % (Auto) [place] % (Auto) Lymph # [place] # Baso # Seg Neutrophils % Seg Neuts % (Manual) Lymphocytes % (Manual) Monocytes % (Manual) Eosinophils % (Manual) Basophils % (Manual) Nucleated RBC % Seg Neutrophils # Seg Neutrophils # Man Lymphocytes # (Manual) Monocytes # (Manual) Eosinophils # (Manual) Basophils # (Manual) PT INR Fibrinogen dRVVT Confirm Interp Factor V Activity POC ABG pH 7.487 H POC ABG pCO2 POC ABG pO2 153 H ABG pO2 ABG HCO3 ABG Base Excess ABG Hemoglobin Oxyhemoglobin Sodium Potassium Chloride Carbon Dioxide BUN Creatinine Glucose POC Glucose 131 H 140 H Lactic Acid Calcium Phosphorus Magnesium Direct Bilirubin AST ALT Alkaline Phosphatase Lactate Dehydrogenase Troponin T C-Reactive Protein Total Protein Albumin Prealbumin Triglycerides Cholesterol LDL Cholesterol Direct HDL Cholesterol Urine pH Urine WBC (Auto) Urine Creatinine Urine Total Protein Fluid Total Protein Vancomycin Trough Rheumatoid Factor Complement C4 Miscellaneous Test Crossmatch 11/25/16 11/26/16 11/26/16 17:23 00:09 05:13 WBC RBC 2.94 L Hgb 8.4 L Hct 24.6 L MCV MCH MCHC RDW 16.4 H Plt Count Lymph % (Auto) [place] % (Auto) 12.3 H Lymph # [place] # 1.1 H Baso # Seg Neutrophils % Seg Neuts % (Manual) Lymphocytes % (Manual) Monocytes % (Manual) Eosinophils % (Manual) Basophils % (Manual) Nucleated RBC % Seg Neutrophils # Seg Neutrophils # Man Lymphocytes # (Manual) Monocytes # (Manual) Eosinophils # (Manual) Basophils # (Manual) PT INR Fibrinogen dRVVT Confirm Interp Factor V Activity POC ABG pH POC ABG pCO2 POC ABG pO2 ABG pO2 ABG HCO3 ABG Base Excess ABG Hemoglobin Oxyhemoglobin Sodium Potassium Chloride Carbon Dioxide BUN Creatinine Glucose POC Glucose 146 H 112 H Lactic Acid Calcium Phosphorus Magnesium Direct Bilirubin AST ALT Alkaline Phosphatase Lactate Dehydrogenase Troponin T C-Reactive Protein Total Protein Albumin Prealbumin Triglycerides Cholesterol LDL Cholesterol Direct HDL Cholesterol Urine pH Urine WBC (Auto) Urine Creatinine Urine Total Protein Fluid Total Protein Vancomycin Trough Rheumatoid Factor Complement C4 Miscellaneous Test Crossmatch 11/26/16 11/26/16 11/26/16 05:13 05:28 11:53 WBC RBC Hgb Hct MCV MCH MCHC RDW Plt Count Lymph % (Auto) [place] % (Auto) Lymph # [place] # Baso # Seg Neutrophils % Seg Neuts % (Manual) Lymphocytes % (Manual) Monocytes % (Manual) Eosinophils % (Manual) Basophils % (Manual) Nucleated RBC % Seg Neutrophils # Seg Neutrophils # Man Lymphocytes # (Manual) Monocytes # (Manual) Eosinophils # (Manual) Basophils # (Manual) PT INR Fibrinogen dRVVT Confirm Interp Factor V Activity POC ABG pH POC ABG pCO2 POC ABG pO2 ABG pO2 ABG HCO3 ABG Base Excess ABG Hemoglobin Oxyhemoglobin Sodium Potassium Chloride 97.8 L Carbon Dioxide BUN 37 H Creatinine 2.0 H Glucose 109 H POC Glucose 117 H 111 H Lactic Acid Calcium 7.9 L Phosphorus 1.80 L D Magnesium Direct Bilirubin AST ALT Alkaline Phosphatase Lactate Dehydrogenase Troponin T C-Reactive Protein Total Protein Albumin Prealbumin Triglycerides Cholesterol LDL Cholesterol Direct HDL Cholesterol Urine pH Urine WBC (Auto) Urine Creatinine Urine Total Protein Fluid Total Protein Vancomycin Trough Rheumatoid Factor Complement C4 Miscellaneous Test Crossmatch 11/26/16 11/27/16 11/27/16 17:14 04:50 06:02 WBC RBC Hgb Hct MCV MCH MCHC RDW Plt Count Lymph % (Auto) [place] % (Auto) Lymph # [place] # Baso # Seg Neutrophils % Seg Neuts % (Manual) Lymphocytes % (Manual) Monocytes % (Manual) Eosinophils % (Manual) Basophils % (Manual) Nucleated RBC % Seg Neutrophils # Seg Neutrophils # Man Lymphocytes # (Manual) Monocytes # (Manual) Eosinophils # (Manual) Basophils # (Manual) PT INR Fibrinogen dRVVT Confirm Interp Factor V Activity POC ABG pH POC ABG pCO2 POC ABG pO2 ABG pO2 75.2 L ABG HCO3 26.4 H ABG Base Excess ABG Hemoglobin 7.6 L Oxyhemoglobin 94.8 L Sodium Potassium Chloride Carbon Dioxide BUN 49 H Creatinine 2.3 H Glucose POC Glucose 115 H Lactic Acid Calcium Phosphorus 1.50 L Magnesium Direct Bilirubin AST ALT Alkaline Phosphatase Lactate Dehydrogenase Troponin T C-Reactive Protein Total Protein Albumin Prealbumin Triglycerides Cholesterol LDL Cholesterol Direct HDL Cholesterol Urine pH Urine WBC (Auto) Urine Creatinine Urine Total Protein Fluid Total Protein Vancomycin Trough Rheumatoid Factor Complement C4 Miscellaneous Test Crossmatch 11/27/16 11/27/16 11/27/16 06:02 11:25 17:25 WBC 11.6 H RBC 2.75 L Hgb 7.6 L Hct 23.4 L MCV MCH MCHC RDW 16.5 H Plt Count Lymph % (Auto) [place] % (Auto) Lymph # [place] # Baso # Seg Neutrophils % Seg Neuts % (Manual) Lymphocytes % (Manual) Monocytes % (Manual) Eosinophils % (Manual) Basophils % (Manual) Nucleated RBC % Seg Neutrophils # Seg Neutrophils # Man Lymphocytes # (Manual) Monocytes # (Manual) Eosinophils # (Manual) Basophils # (Manual) PT INR Fibrinogen dRVVT Confirm Interp Factor V Activity POC ABG pH POC ABG pCO2 POC ABG pO2 ABG pO2 ABG HCO3 ABG Base Excess ABG Hemoglobin Oxyhemoglobin Sodium Potassium Chloride Carbon Dioxide BUN Creatinine Glucose POC Glucose 114 H 126 H Lactic Acid Calcium Phosphorus Magnesium Direct Bilirubin AST ALT Alkaline Phosphatase Lactate Dehydrogenase Troponin T C-Reactive Protein Total Protein Albumin Prealbumin Triglycerides Cholesterol LDL Cholesterol Direct HDL Cholesterol Urine pH Urine WBC (Auto) Urine Creatinine Urine Total Protein Fluid Total Protein Vancomycin Trough Rheumatoid Factor Complement C4 Miscellaneous Test Crossmatch 11/28/16 11/28/16 11/28/16 04:45 05:33 05:44 WBC RBC Hgb Hct MCV MCH MCHC RDW Plt Count Lymph % (Auto) [place] % (Auto) Lymph # [place] # Baso # Seg Neutrophils % Seg Neuts % (Manual) Lymphocytes % (Manual) Monocytes % (Manual) Eosinophils % (Manual) Basophils % (Manual) Nucleated RBC % Seg Neutrophils # Seg Neutrophils # Man Lymphocytes # (Manual) Monocytes # (Manual) Eosinophils # (Manual) Basophils # (Manual) PT INR Fibrinogen dRVVT Confirm Interp Factor V Activity POC ABG pH POC ABG pCO2 POC ABG pO2 ABG pO2 99.3 H ABG HCO3 ABG Base Excess ABG Hemoglobin 8.3 L Oxyhemoglobin Sodium Potassium Chloride Carbon Dioxide BUN 63 H Creatinine 2.4 H Glucose 102 H POC Glucose 108 H Lactic Acid Calcium Phosphorus 1.80 L Magnesium Direct Bilirubin AST ALT Alkaline Phosphatase Lactate Dehydrogenase Troponin T C-Reactive Protein Total Protein Albumin Prealbumin Triglycerides Cholesterol LDL Cholesterol Direct HDL Cholesterol Urine pH Urine WBC (Auto) Urine Creatinine Urine Total Protein Fluid Total Protein Vancomycin Trough Rheumatoid Factor Complement C4 Miscellaneous Test Crossmatch 11/28/16 11/28/16 11/28/16 12:31 16:09 23:46 WBC RBC Hgb Hct MCV MCH MCHC RDW Plt Count Lymph % (Auto) [place] % (Auto) Lymph # [place] # Baso # Seg Neutrophils % Seg Neuts % (Manual) Lymphocytes % (Manual) Monocytes % (Manual) Eosinophils % (Manual) Basophils % (Manual) Nucleated RBC % Seg Neutrophils # Seg Neutrophils # Man Lymphocytes # (Manual) Monocytes # (Manual) Eosinophils # (Manual) Basophils # (Manual) PT INR Fibrinogen dRVVT Confirm Interp Factor V Activity POC ABG pH POC ABG pCO2 POC ABG pO2 ABG pO2 ABG HCO3 ABG Base Excess ABG Hemoglobin Oxyhemoglobin Sodium Potassium Chloride Carbon Dioxide BUN Creatinine Glucose POC Glucose 126 H 111 H 119 H Lactic Acid Calcium Phosphorus Magnesium Direct Bilirubin AST ALT Alkaline Phosphatase Lactate Dehydrogenase Troponin T C-Reactive Protein Total Protein Albumin Prealbumin Triglycerides Cholesterol LDL Cholesterol Direct HDL Cholesterol Urine pH Urine WBC (Auto) Urine Creatinine Urine Total Protein Fluid Total Protein Vancomycin Trough Rheumatoid Factor Complement C4 Miscellaneous Test Crossmatch 11/29/16 11/29/16 11/29/16 03:33 04:52 05:10 WBC RBC Hgb Hct MCV MCH MCHC RDW Plt Count Lymph % (Auto) [place] % (Auto) Lymph # [place] # Baso # Seg Neutrophils % Seg Neuts % (Manual) Lymphocytes % (Manual) Monocytes % (Manual) Eosinophils % (Manual) Basophils % (Manual) Nucleated RBC % Seg Neutrophils # Seg Neutrophils # Man Lymphocytes # (Manual) Monocytes # (Manual) Eosinophils # (Manual) Basophils # (Manual) PT INR Fibrinogen dRVVT Confirm Interp Factor V Activity POC ABG pH POC ABG pCO2 POC ABG pO2 ABG pO2 ABG HCO3 ABG Base Excess ABG Hemoglobin 7.0 L Oxyhemoglobin 94.9 L Sodium Potassium Chloride Carbon Dioxide BUN 73 H Creatinine 2.7 H Glucose POC Glucose 108 H Lactic Acid Calcium Phosphorus Magnesium Direct Bilirubin AST ALT Alkaline Phosphatase Lactate Dehydrogenase Troponin T C-Reactive Protein Total Protein Albumin Prealbumin Triglycerides Cholesterol LDL Cholesterol Direct HDL Cholesterol Urine pH Urine WBC (Auto) Urine Creatinine Urine Total Protein Fluid Total Protein Vancomycin Trough Rheumatoid Factor Complement C4 Miscellaneous Test Crossmatch 11/29/16 11/29/16 11/29/16 12:16 18:05 23:46 WBC RBC Hgb Hct MCV MCH MCHC RDW Plt Count Lymph % (Auto) [place] % (Auto) Lymph # [place] # Baso # Seg Neutrophils % Seg Neuts % (Manual) Lymphocytes % (Manual) Monocytes % (Manual) Eosinophils % (Manual) Basophils % (Manual) Nucleated RBC % Seg Neutrophils # Seg Neutrophils # Man Lymphocytes # (Manual) Monocytes # (Manual) Eosinophils # (Manual) Basophils # (Manual) PT INR Fibrinogen dRVVT Confirm Interp Factor V Activity POC ABG pH POC ABG pCO2 POC ABG pO2 ABG pO2 ABG HCO3 ABG Base Excess ABG Hemoglobin Oxyhemoglobin Sodium Potassium Chloride Carbon Dioxide BUN Creatinine Glucose POC Glucose 133 H 146 H 141 H Lactic Acid Calcium Phosphorus Magnesium Direct Bilirubin AST ALT Alkaline Phosphatase Lactate Dehydrogenase Troponin T C-Reactive Protein Total Protein Albumin Prealbumin Triglycerides Cholesterol LDL Cholesterol Direct HDL Cholesterol Urine pH Urine WBC (Auto) Urine Creatinine Urine Total Protein Fluid Total Protein Vancomycin Trough Rheumatoid Factor Complement C4 Miscellaneous Test Crossmatch 11/30/16 11/30/16 11/30/16 04:17 04:17 04:32 WBC 12.0 H RBC 2.80 L Hgb 7.8 L Hct 23.6 L MCV MCH MCHC RDW 16.6 H Plt Count Lymph % (Auto) [place] % (Auto) 11.3 H Lymph # [place] # 1.4 H Baso # Seg Neutrophils % Seg Neuts % (Manual) Lymphocytes % (Manual) Monocytes % (Manual) Eosinophils % (Manual) Basophils % (Manual) Nucleated RBC % Seg Neutrophils # 8.2 H Seg Neutrophils # Man Lymphocytes # (Manual) Monocytes # (Manual) Eosinophils # (Manual) Basophils # (Manual) PT INR Fibrinogen dRVVT Confirm Interp Factor V Activity POC ABG pH POC ABG pCO2 POC ABG pO2 ABG pO2 ABG HCO3 ABG Base Excess ABG Hemoglobin Oxyhemoglobin Sodium 169 H* D Potassium 5.1 H Chloride 121.5 H Carbon Dioxide BUN 34 H Creatinine 1.3 H D Glucose 133 H POC Glucose 131 H Lactic Acid Calcium 10.3 H Phosphorus Magnesium Direct Bilirubin AST ALT Alkaline Phosphatase Lactate Dehydrogenase Troponin T C-Reactive Protein Total Protein Albumin Prealbumin Triglycerides Cholesterol LDL Cholesterol Direct HDL Cholesterol Urine pH Urine WBC (Auto) Urine Creatinine Urine Total Protein Fluid Total Protein Vancomycin Trough Rheumatoid Factor Complement C4 Miscellaneous Test Crossmatch 11/30/16 11/30/16 11/30/16 05:45 11:10 17:26 WBC RBC Hgb Hct MCV MCH MCHC RDW Plt Count Lymph % (Auto) [place] % (Auto) Lymph # [place] # Baso # Seg Neutrophils % Seg Neuts % (Manual) Lymphocytes % (Manual) Monocytes % (Manual) Eosinophils % (Manual) Basophils % (Manual) Nucleated RBC % Seg Neutrophils # Seg Neutrophils # Man Lymphocytes # (Manual) Monocytes # (Manual) Eosinophils # (Manual) Basophils # (Manual) PT INR Fibrinogen dRVVT Confirm Interp Factor V Activity POC ABG pH POC ABG pCO2 POC ABG pO2 ABG pO2 ABG HCO3 ABG Base Excess ABG Hemoglobin Oxyhemoglobin Sodium Potassium Chloride Carbon Dioxide BUN 45 H Creatinine 1.6 H Glucose 131 H POC Glucose 146 H 134 H Lactic Acid Calcium Phosphorus Magnesium Direct Bilirubin AST ALT Alkaline Phosphatase Lactate Dehydrogenase Troponin T C-Reactive Protein Total Protein Albumin Prealbumin Triglycerides Cholesterol LDL Cholesterol Direct HDL Cholesterol Urine pH Urine WBC (Auto) Urine Creatinine Urine Total Protein Fluid Total Protein Vancomycin Trough Rheumatoid Factor Complement C4 Miscellaneous Test Crossmatch 11/30/16 12/01/16 12/01/16 23:35 00:06 03:35 WBC RBC Hgb Hct MCV MCH MCHC RDW Plt Count Lymph % (Auto) [place] % (Auto) Lymph # [place] # Baso # Seg Neutrophils % Seg Neuts % (Manual) Lymphocytes % (Manual) Monocytes % (Manual) Eosinophils % (Manual) Basophils % (Manual) Nucleated RBC % Seg Neutrophils # Seg Neutrophils # Man Lymphocytes # (Manual) Monocytes # (Manual) Eosinophils # (Manual) Basophils # (Manual) PT INR Fibrinogen dRVVT Confirm Interp Factor V Activity POC ABG pH POC ABG pCO2 POC ABG pO2 ABG pO2 ABG HCO3 ABG Base Excess ABG Hemoglobin 6.9 L Oxyhemoglobin Sodium Potassium Chloride Carbon Dioxide BUN 58 H Creatinine 1.8 H Glucose 146 H POC Glucose 151 H Lactic Acid Calcium Phosphorus Magnesium Direct Bilirubin AST ALT Alkaline Phosphatase Lactate Dehydrogenase Troponin T C-Reactive Protein Total Protein Albumin Prealbumin Triglycerides Cholesterol LDL Cholesterol Direct HDL Cholesterol Urine pH Urine WBC (Auto) Urine Creatinine Urine Total Protein Fluid Total Protein Vancomycin Trough Rheumatoid Factor Complement C4 Miscellaneous Test Crossmatch 12/01/16 12/01/16 12/01/16 03:35 05:47 11:52 WBC 12.3 H RBC 2.82 L Hgb 7.8 L Hct 23.7 L MCV MCH MCHC RDW 16.7 H Plt Count Lymph % (Auto) [place] % (Auto) 9.8 H Lymph # [place] # 1.2 H Baso # Seg Neutrophils % Seg Neuts % (Manual) Lymphocytes % (Manual) Monocytes % (Manual) Eosinophils % (Manual) Basophils % (Manual) Nucleated RBC % Seg Neutrophils # 8.4 H Seg Neutrophils # Man Lymphocytes # (Manual) Monocytes # (Manual) Eosinophils # (Manual) Basophils # (Manual) PT INR Fibrinogen dRVVT Confirm Interp Factor V Activity POC ABG pH POC ABG pCO2 POC ABG pO2 ABG pO2 ABG HCO3 ABG Base Excess ABG Hemoglobin Oxyhemoglobin Sodium Potassium Chloride Carbon Dioxide BUN Creatinine Glucose POC Glucose 152 H 152 H Lactic Acid Calcium Phosphorus Magnesium Direct Bilirubin AST ALT Alkaline Phosphatase Lactate Dehydrogenase Troponin T C-Reactive Protein Total Protein Albumin Prealbumin Triglycerides Cholesterol LDL Cholesterol Direct HDL Cholesterol Urine pH Urine WBC (Auto) Urine Creatinine Urine Total Protein Fluid Total Protein Vancomycin Trough Rheumatoid Factor Complement C4 Miscellaneous Test Crossmatch 12/01/16 12/01/16 12/02/16 17:40 23:41 05:00 WBC RBC Hgb Hct MCV MCH MCHC RDW Plt Count Lymph % (Auto) [place] % (Auto) Lymph # [place] # Baso # Seg Neutrophils % Seg Neuts % (Manual) Lymphocytes % (Manual) Monocytes % (Manual) Eosinophils % (Manual) Basophils % (Manual) Nucleated RBC % Seg Neutrophils # Seg Neutrophils # Man Lymphocytes # (Manual) Monocytes # (Manual) Eosinophils # (Manual) Basophils # (Manual) PT INR Fibrinogen dRVVT Confirm Interp Factor V Activity POC ABG pH POC ABG pCO2 POC ABG pO2 ABG pO2 ABG HCO3 ABG Base Excess ABG Hemoglobin Oxyhemoglobin Sodium Potassium Chloride Carbon Dioxide BUN 45 H Creatinine Glucose 115 H POC Glucose 140 H 144 H Lactic Acid Calcium Phosphorus Magnesium Direct Bilirubin AST ALT Alkaline Phosphatase Lactate Dehydrogenase Troponin T C-Reactive Protein Total Protein Albumin Prealbumin Triglycerides Cholesterol LDL Cholesterol Direct HDL Cholesterol Urine pH Urine WBC (Auto) Urine Creatinine Urine Total Protein Fluid Total Protein Vancomycin Trough Rheumatoid Factor Complement C4 Miscellaneous Test Crossmatch 12/02/16 12/02/16 12/02/16 05:31 11:20 17:38 WBC RBC Hgb Hct MCV MCH MCHC RDW Plt Count Lymph % (Auto) [place] % (Auto) Lymph # [place] # Baso # Seg Neutrophils % Seg Neuts % (Manual) Lymphocytes % (Manual) Monocytes % (Manual) Eosinophils % (Manual) Basophils % (Manual) Nucleated RBC % Seg Neutrophils # Seg Neutrophils # Man Lymphocytes # (Manual) Monocytes # (Manual) Eosinophils # (Manual) Basophils # (Manual) PT INR Fibrinogen dRVVT Confirm Interp Factor V Activity POC ABG pH POC ABG pCO2 POC ABG pO2 ABG pO2 ABG HCO3 ABG Base Excess ABG Hemoglobin Oxyhemoglobin Sodium Potassium Chloride Carbon Dioxide BUN Creatinine Glucose POC Glucose 136 H 177 H 139 H Lactic Acid Calcium Phosphorus Magnesium Direct Bilirubin AST ALT Alkaline Phosphatase Lactate Dehydrogenase Troponin T C-Reactive Protein Total Protein Albumin Prealbumin Triglycerides Cholesterol LDL Cholesterol Direct HDL Cholesterol Urine pH Urine WBC (Auto) Urine Creatinine Urine Total Protein Fluid Total Protein Vancomycin Trough Rheumatoid Factor Complement C4 Miscellaneous Test Crossmatch 12/02/16 12/03/16 12/03/16 23:43 04:00 04:00 WBC 20.4 H RBC 2.74 L Hgb 7.4 L Hct 23.6 L MCV MCH 27 L MCHC RDW 17.1 H Plt Count Lymph % (Auto) [place] % (Auto) Lymph # [place] # Baso # Seg Neutrophils % Seg Neuts % (Manual) 31.0 L Lymphocytes % (Manual) Monocytes % (Manual) Eosinophils % (Manual) Basophils % (Manual) Nucleated RBC % Seg Neutrophils # Seg Neutrophils # Man Lymphocytes # (Manual) Monocytes # (Manual) Eosinophils # (Manual) Basophils # (Manual) PT INR Fibrinogen dRVVT Confirm Interp Factor V Activity POC ABG pH POC ABG pCO2 POC ABG pO2 ABG pO2 ABG HCO3 ABG Base Excess ABG Hemoglobin Oxyhemoglobin Sodium Potassium Chloride Carbon Dioxide BUN 61 H Creatinine 1.6 H Glucose 119 H POC Glucose 158 H Lactic Acid Calcium Phosphorus Magnesium Direct Bilirubin AST ALT Alkaline Phosphatase Lactate Dehydrogenase Troponin T C-Reactive Protein Total Protein Albumin Prealbumin Triglycerides Cholesterol LDL Cholesterol Direct HDL Cholesterol Urine pH Urine WBC (Auto) Urine Creatinine Urine Total Protein Fluid Total Protein Vancomycin Trough Rheumatoid Factor Complement C4 Miscellaneous Test Crossmatch 12/03/16 12/03/16 12/03/16 05:02 12:11 18:16 WBC RBC Hgb Hct MCV MCH MCHC RDW Plt Count Lymph % (Auto) [place] % (Auto) Lymph # [place] # Baso # Seg Neutrophils % Seg Neuts % (Manual) Lymphocytes % (Manual) Monocytes % (Manual) Eosinophils % (Manual) Basophils % (Manual) Nucleated RBC % Seg Neutrophils # Seg Neutrophils # Man Lymphocytes # (Manual) Monocytes # (Manual) Eosinophils # (Manual) Basophils # (Manual) PT INR Fibrinogen dRVVT Confirm Interp Factor V Activity POC ABG pH POC ABG pCO2 POC ABG pO2 ABG pO2 ABG HCO3 ABG Base Excess ABG Hemoglobin Oxyhemoglobin Sodium Potassium Chloride Carbon Dioxide BUN Creatinine Glucose POC Glucose 146 H 157 H 124 H Lactic Acid Calcium Phosphorus Magnesium Direct Bilirubin AST ALT Alkaline Phosphatase Lactate Dehydrogenase Troponin T C-Reactive Protein Total Protein Albumin Prealbumin Triglycerides Cholesterol LDL Cholesterol Direct HDL Cholesterol Urine pH Urine WBC (Auto) Urine Creatinine Urine Total Protein Fluid Total Protein Vancomycin Trough Rheumatoid Factor Complement C4 Miscellaneous Test Crossmatch 12/03/16 12/04/1612/04/17 23:41 04:00 04:45 WBC RBC Hgb Hct MCV MCH MCHC RDW Plt Count Lymph % (Auto) [place] % (Auto) Lymph # [place] # Baso # Seg Neutrophils % Seg Neuts % (Manual) Lymphocytes % (Manual) Monocytes % (Manual) Eosinophils % (Manual) Basophils % (Manual) Nucleated RBC % Seg Neutrophils # Seg Neutrophils # Man Lymphocytes # (Manual) Monocytes # (Manual) Eosinophils # (Manual) Basophils # (Manual) PT INR Fibrinogen dRVVT Confirm Interp Factor V Activity POC ABG pH POC ABG pCO2 POC ABG pO2 ABG pO2 ABG HCO3 ABG Base Excess ABG Hemoglobin Oxyhemoglobin Sodium Potassium Chloride Carbon Dioxide BUN 76 H Creatinine 1.6 H Glucose POC Glucose 130 H 136 H Lactic Acid Calcium Phosphorus Magnesium Direct Bilirubin AST ALT Alkaline Phosphatase 155 H Lactate Dehydrogenase Troponin T C-Reactive Protein Total Protein 5.5 L Albumin 1.5 L Prealbumin Triglycerides Cholesterol LDL Cholesterol Direct HDL Cholesterol Urine pH Urine WBC (Auto) Urine Creatinine Urine Total Protein Fluid Total Protein Vancomycin Trough Rheumatoid Factor Complement C4 Miscellaneous Test Crossmatch 12/04/16 12/04/16 12/05/16 12:08 17:23 00:10 WBC RBC Hgb Hct MCV MCH MCHC RDW Plt Count Lymph % (Auto) [place] % (Auto) Lymph # [place] # Baso # Seg Neutrophils % Seg Neuts % (Manual) Lymphocytes % (Manual) Monocytes % (Manual) Eosinophils % (Manual) Basophils % (Manual) Nucleated RBC % Seg Neutrophils # Seg Neutrophils # Man Lymphocytes # (Manual) Monocytes # (Manual) Eosinophils # (Manual) Basophils # (Manual) PT INR Fibrinogen dRVVT Confirm Interp Factor V Activity POC ABG pH POC ABG pCO2 POC ABG pO2 ABG pO2 ABG HCO3 ABG Base Excess ABG Hemoglobin Oxyhemoglobin Sodium Potassium Chloride Carbon Dioxide BUN Creatinine Glucose POC Glucose 114 H 129 H 124 H Lactic Acid Calcium Phosphorus Magnesium Direct Bilirubin AST ALT Alkaline Phosphatase Lactate Dehydrogenase Troponin T C-Reactive Protein Total Protein Albumin Prealbumin Triglycerides Cholesterol LDL Cholesterol Direct HDL Cholesterol Urine pH Urine WBC (Auto) Urine Creatinine Urine Total Protein Fluid Total Protein Vancomycin Trough Rheumatoid Factor Complement C4 Miscellaneous Test Crossmatch 12/05/16 12/05/16 12/05/16 05:00 05:00 05:18 WBC RBC Hgb Hct MCV MCH MCHC RDW Plt Count Lymph % (Auto) [place] % (Auto) Lymph # [place] # Baso # Seg Neutrophils % Seg Neuts % (Manual) Lymphocytes % (Manual) Monocytes % (Manual) Eosinophils % (Manual) Basophils % (Manual) Nucleated RBC % Seg Neutrophils # Seg Neutrophils # Man Lymphocytes # (Manual) Monocytes # (Manual) Eosinophils # (Manual) Basophils # (Manual) PT INR Fibrinogen dRVVT Confirm Interp Factor V Activity POC ABG pH POC ABG pCO2 POC ABG pO2 ABG pO2 ABG HCO3 ABG Base Excess ABG Hemoglobin Oxyhemoglobin Sodium Potassium Chloride Carbon Dioxide 21 L BUN 85 H Creatinine 1.9 H Glucose 131 H POC Glucose 154 H Lactic Acid Calcium Phosphorus Magnesium Direct Bilirubin AST ALT Alkaline Phosphatase Lactate Dehydrogenase Troponin T C-Reactive Protein 19.30 H Total Protein Albumin Prealbumin Triglycerides Cholesterol LDL Cholesterol Direct HDL Cholesterol Urine pH Urine WBC (Auto) Urine Creatinine Urine Total Protein Fluid Total Protein Vancomycin Trough Rheumatoid Factor Complement C4 Miscellaneous Test Crossmatch 12/05/16 12/05/16 12/05/16 11:43 17:46 23:25 WBC RBC Hgb Hct MCV MCH MCHC RDW Plt Count Lymph % (Auto) [place] % (Auto) Lymph # [place] # Baso # Seg Neutrophils % Seg Neuts % (Manual) Lymphocytes % (Manual) Monocytes % (Manual) Eosinophils % (Manual) Basophils % (Manual) Nucleated RBC % Seg Neutrophils # Seg Neutrophils # Man Lymphocytes # (Manual) Monocytes # (Manual) Eosinophils # (Manual) Basophils # (Manual) PT INR Fibrinogen dRVVT Confirm Interp Factor V Activity POC ABG pH POC ABG pCO2 POC ABG pO2 ABG pO2 ABG HCO3 ABG Base Excess ABG Hemoglobin Oxyhemoglobin Sodium Potassium Chloride Carbon Dioxide BUN Creatinine Glucose POC Glucose 117 H 113 H 111 H Lactic Acid Calcium Phosphorus Magnesium Direct Bilirubin AST ALT Alkaline Phosphatase Lactate Dehydrogenase Troponin T C-Reactive Protein Total Protein Albumin Prealbumin Triglycerides Cholesterol LDL Cholesterol Direct HDL Cholesterol Urine pH Urine WBC (Auto) Urine Creatinine Urine Total Protein Fluid Total Protein Vancomycin Trough Rheumatoid Factor Complement C4 Miscellaneous Test Crossmatch 12/05/16 12/06/16 12/06/16 Unknown 04:58 06:00 WBC RBC Hgb Hct MCV MCH MCHC RDW Plt Count Lymph % (Auto) [place] % (Auto) Lymph # [place] # Baso # Seg Neutrophils % Seg Neuts % (Manual) Lymphocytes % (Manual) Monocytes % (Manual) Eosinophils % (Manual) Basophils % (Manual) Nucleated RBC % Seg Neutrophils # Seg Neutrophils # Man Lymphocytes # (Manual) Monocytes # (Manual) Eosinophils # (Manual) Basophils # (Manual) PT INR Fibrinogen dRVVT Confirm Interp Factor V Activity POC ABG pH POC ABG pCO2 POC ABG pO2 ABG pO2 75.2 L ABG HCO3 ABG Base Excess -3.4 L ABG Hemoglobin 7.4 L Oxyhemoglobin 94.5 L Sodium Potassium Chloride Carbon Dioxide 20 L BUN 99 H Creatinine 2.1 H Glucose 126 H POC Glucose 145 H Lactic Acid Calcium Phosphorus 4.80 H Magnesium Direct Bilirubin AST ALT Alkaline Phosphatase Lactate Dehydrogenase Troponin T C-Reactive Protein Total Protein Albumin Prealbumin Triglycerides Cholesterol LDL Cholesterol Direct HDL Cholesterol Urine pH Urine WBC (Auto) Urine Creatinine Urine Total Protein Fluid Total Protein Vancomycin Trough Rheumatoid Factor Complement C4 Miscellaneous Test Crossmatch 12/06/16 12/06/16 12/06/16 06:46 11:54 17:55 WBC RBC Hgb 8.3 L Hct 26.4 L MCV MCH MCHC RDW Plt Count Lymph % (Auto) [place] % (Auto) Lymph # [place] # Baso # Seg Neutrophils % Seg Neuts % (Manual) Lymphocytes % (Manual) Monocytes % (Manual) Eosinophils % (Manual) Basophils % (Manual) Nucleated RBC % Seg Neutrophils # Seg Neutrophils # Man Lymphocytes # (Manual) Monocytes # (Manual) Eosinophils # (Manual) Basophils # (Manual) PT INR Fibrinogen dRVVT Confirm Interp Factor V Activity POC ABG pH POC ABG pCO2 POC ABG pO2 ABG pO2 ABG HCO3 ABG Base Excess ABG Hemoglobin Oxyhemoglobin Sodium Potassium Chloride Carbon Dioxide BUN Creatinine Glucose POC Glucose 126 H 157 H Lactic Acid Calcium Phosphorus Magnesium Direct Bilirubin AST ALT Alkaline Phosphatase Lactate Dehydrogenase Troponin T C-Reactive Protein Total Protein Albumin Prealbumin Triglycerides Cholesterol LDL Cholesterol Direct HDL Cholesterol Urine pH Urine WBC (Auto) Urine Creatinine Urine Total Protein Fluid Total Protein Vancomycin Trough Rheumatoid Factor Complement C4 Miscellaneous Test Crossmatch 12/06/16 12/07/16 12/07/16 23:59 05:34 06:30 WBC RBC Hgb Hct MCV MCH MCHC RDW Plt Count Lymph % (Auto) [place] % (Auto) Lymph # [place] # Baso # Seg Neutrophils % Seg Neuts % (Manual) Lymphocytes % (Manual) Monocytes % (Manual) Eosinophils % (Manual) Basophils % (Manual) Nucleated RBC % Seg Neutrophils # Seg Neutrophils # Man Lymphocytes # (Manual) Monocytes # (Manual) Eosinophils # (Manual) Basophils # (Manual) PT INR Fibrinogen dRVVT Confirm Interp Factor V Activity POC ABG pH POC ABG pCO2 POC ABG pO2 ABG pO2 ABG HCO3 ABG Base Excess ABG Hemoglobin Oxyhemoglobin Sodium Potassium Chloride Carbon Dioxide BUN 67 H Creatinine 1.4 H Glucose 126 H POC Glucose 129 H 129 H Lactic Acid Calcium Phosphorus Magnesium Direct Bilirubin AST ALT Alkaline Phosphatase Lactate Dehydrogenase Troponin T C-Reactive Protein Total Protein Albumin Prealbumin Triglycerides Cholesterol LDL Cholesterol Direct HDL Cholesterol Urine pH Urine WBC (Auto) Urine Creatinine Urine Total Protein Fluid Total Protein Vancomycin Trough Rheumatoid Factor Complement C4 Miscellaneous Test Crossmatch 12/07/16 12/07/16 12/07/16 06:30 08:00 09:45 WBC 18.8 H RBC 2.52 L Hgb 6.9 L 6.8 L Hct 21.2 L 21.1 L MCV MCH 27 L MCHC RDW 18.0 H Plt Count Lymph % (Auto) [place] % (Auto) 9.9 H Lymph # [place] # 1.9 H Baso # Seg Neutrophils % 71.8 H Seg Neuts % (Manual) Lymphocytes % (Manual) Monocytes % (Manual) Eosinophils % (Manual) Basophils % (Manual) Nucleated RBC % Seg Neutrophils # 13.5 H Seg Neutrophils # Man Lymphocytes # (Manual) Monocytes # (Manual) Eosinophils # (Manual) Basophils # (Manual) PT INR Fibrinogen dRVVT Confirm Interp Factor V Activity POC ABG pH POC ABG pCO2 POC ABG pO2 ABG pO2 ABG HCO3 ABG Base Excess ABG Hemoglobin Oxyhemoglobin Sodium Potassium Chloride Carbon Dioxide BUN Creatinine Glucose POC Glucose Lactic Acid Calcium Phosphorus Magnesium Direct Bilirubin AST ALT Alkaline Phosphatase Lactate Dehydrogenase Troponin T C-Reactive Protein Total Protein Albumin Prealbumin Triglycerides Cholesterol LDL Cholesterol Direct HDL Cholesterol Urine pH Urine WBC (Auto) Urine Creatinine Urine Total Protein Fluid Total Protein Vancomycin Trough Rheumatoid Factor Complement C4 Miscellaneous Test Crossmatch See Detail 12/07/16 12/07/16 12/07/16 11:44 18:19 23:59 WBC RBC Hgb Hct MCV MCH MCHC RDW Plt Count Lymph % (Auto) [place] % (Auto) Lymph # [place] # Baso # Seg Neutrophils % Seg Neuts % (Manual) Lymphocytes % (Manual) Monocytes % (Manual) Eosinophils % (Manual) Basophils % (Manual) Nucleated RBC % Seg Neutrophils # Seg Neutrophils # Man Lymphocytes # (Manual) Monocytes # (Manual) Eosinophils # (Manual) Basophils # (Manual) PT INR Fibrinogen dRVVT Confirm Interp Factor V Activity POC ABG pH POC ABG pCO2 POC ABG pO2 ABG pO2 ABG HCO3 ABG Base Excess ABG Hemoglobin Oxyhemoglobin Sodium Potassium Chloride Carbon Dioxide BUN Creatinine Glucose POC Glucose 137 H 138 H 133 H Lactic Acid Calcium Phosphorus Magnesium Direct Bilirubin AST ALT Alkaline Phosphatase Lactate Dehydrogenase Troponin T C-Reactive Protein Total Protein Albumin Prealbumin Triglycerides Cholesterol LDL Cholesterol Direct HDL Cholesterol Urine pH Urine WBC (Auto) Urine Creatinine Urine Total Protein Fluid Total Protein Vancomycin Trough Rheumatoid Factor Complement C4 Miscellaneous Test Crossmatch 12/08/16 12/08/16 12/08/16 05:25 05:30 05:30 WBC 23.8 H RBC 2.88 L Hgb 8.1 L Hct 24.3 L MCV MCH MCHC RDW 16.7 H Plt Count Lymph % (Auto) [place] % (Auto) Lymph # [place] # Baso # Seg Neutrophils % Seg Neuts % (Manual) 76.0 H Lymphocytes % (Manual) 9.0 L Monocytes % (Manual) 9.0 H Eosinophils % (Manual) Basophils % (Manual) Nucleated RBC % Seg Neutrophils # Seg Neutrophils # Man 18.1 H Lymphocytes # (Manual) Monocytes # (Manual) 2.1 H Eosinophils # (Manual) Basophils # (Manual) PT INR Fibrinogen dRVVT Confirm Interp Factor V Activity POC ABG pH POC ABG pCO2 POC ABG pO2 ABG pO2 ABG HCO3 ABG Base Excess ABG Hemoglobin Oxyhemoglobin Sodium Potassium Chloride Carbon Dioxide 21 L BUN 76 H Creatinine 1.6 H Glucose 133 H POC Glucose 177 H Lactic Acid Calcium Phosphorus Magnesium Direct Bilirubin AST ALT Alkaline Phosphatase Lactate Dehydrogenase Troponin T C-Reactive Protein Total Protein Albumin Prealbumin Triglycerides Cholesterol LDL Cholesterol Direct HDL Cholesterol Urine pH Urine WBC (Auto) Urine Creatinine Urine Total Protein Fluid Total Protein Vancomycin Trough Rheumatoid Factor Complement C4 Miscellaneous Test Crossmatch 12/08/16 12/08/16 12/09/16 11:45 18:00 00:00 WBC RBC Hgb Hct MCV MCH MCHC RDW Plt Count Lymph % (Auto) [place] % (Auto) Lymph # [place] # Baso # Seg Neutrophils % Seg Neuts % (Manual) Lymphocytes % (Manual) Monocytes % (Manual) Eosinophils % (Manual) Basophils % (Manual) Nucleated RBC % Seg Neutrophils # Seg Neutrophils # Man Lymphocytes # (Manual) Monocytes # (Manual) Eosinophils # (Manual) Basophils # (Manual) PT INR Fibrinogen dRVVT Confirm Interp Factor V Activity POC ABG pH POC ABG pCO2 POC ABG pO2 ABG pO2 ABG HCO3 ABG Base Excess ABG Hemoglobin Oxyhemoglobin Sodium Potassium Chloride Carbon Dioxide BUN Creatinine Glucose POC Glucose 163 H 123 H 137 H Lactic Acid Calcium Phosphorus Magnesium Direct Bilirubin AST ALT Alkaline Phosphatase Lactate Dehydrogenase Troponin T C-Reactive Protein Total Protein Albumin Prealbumin Triglycerides Cholesterol LDL Cholesterol Direct HDL Cholesterol Urine pH Urine WBC (Auto) Urine Creatinine Urine Total Protein Fluid Total Protein Vancomycin Trough Rheumatoid Factor Complement C4 Miscellaneous Test Crossmatch 12/09/16 12/09/16 12/09/16 05:34 06:00 06:00 WBC 15.5 H RBC 2.87 L Hgb 8.0 L Hct 24.2 L MCV MCH MCHC RDW 17.2 H Plt Count Lymph % (Auto) [place] % (Auto) 11.6 H Lymph # [place] # 1.8 H Baso # Seg Neutrophils % 70.8 H Seg Neuts % (Manual) Lymphocytes % (Manual) Monocytes % (Manual) Eosinophils % (Manual) Basophils % (Manual) Nucleated RBC % Seg Neutrophils # 11.0 H Seg Neutrophils # Man Lymphocytes # (Manual) Monocytes # (Manual) Eosinophils # (Manual) Basophils # (Manual) PT INR Fibrinogen dRVVT Confirm Interp Factor V Activity POC ABG pH POC ABG pCO2 POC ABG pO2 ABG pO2 ABG HCO3 ABG Base Excess ABG Hemoglobin Oxyhemoglobin Sodium Potassium Chloride Carbon Dioxide BUN 51 H Creatinine Glucose 117 H POC Glucose 136 H Lactic Acid Calcium Phosphorus Magnesium Direct Bilirubin AST ALT Alkaline Phosphatase Lactate Dehydrogenase Troponin T C-Reactive Protein Total Protein Albumin Prealbumin Triglycerides Cholesterol LDL Cholesterol Direct HDL Cholesterol Urine pH Urine WBC (Auto) Urine Creatinine Urine Total Protein Fluid Total Protein Vancomycin Trough Rheumatoid Factor Complement C4 Miscellaneous Test Crossmatch 12/09/16 12/09/16 12/09/16 12:29 17:52 23:10 WBC RBC Hgb Hct MCV MCH MCHC RDW Plt Count Lymph % (Auto) [place] % (Auto) Lymph # [place] # Baso # Seg Neutrophils % Seg Neuts % (Manual) Lymphocytes % (Manual) Monocytes % (Manual) Eosinophils % (Manual) Basophils % (Manual) Nucleated RBC % Seg Neutrophils # Seg Neutrophils # Man Lymphocytes # (Manual) Monocytes # (Manual) Eosinophils # (Manual) Basophils # (Manual) PT INR Fibrinogen dRVVT Confirm Interp Factor V Activity POC ABG pH POC ABG pCO2 POC ABG pO2 ABG pO2 ABG HCO3 ABG Base Excess ABG Hemoglobin Oxyhemoglobin Sodium Potassium Chloride Carbon Dioxide BUN Creatinine Glucose POC Glucose 139 H 140 H 129 H Lactic Acid Calcium Phosphorus Magnesium Direct Bilirubin AST ALT Alkaline Phosphatase Lactate Dehydrogenase Troponin T C-Reactive Protein Total Protein Albumin Prealbumin Triglycerides Cholesterol LDL Cholesterol Direct HDL Cholesterol Urine pH Urine WBC (Auto) Urine Creatinine Urine Total Protein Fluid Total Protein Vancomycin Trough Rheumatoid Factor Complement C4 Miscellaneous Test Crossmatch 12/10/16 12/10/16 12/10/16 05:00 05:00 06:54 WBC 15.7 H RBC 2.87 L Hgb 8.2 L Hct 24.4 L MCV MCH MCHC RDW 17.2 H Plt Count Lymph % (Auto) [place] % (Auto) 8.3 H Lymph # [place] # 1.3 H Baso # Seg Neutrophils % 72.8 H Seg Neuts % (Manual) Lymphocytes % (Manual) Monocytes % (Manual) Eosinophils % (Manual) Basophils % (Manual) Nucleated RBC % Seg Neutrophils # 11.4 H Seg Neutrophils # Man Lymphocytes # (Manual) Monocytes # (Manual) Eosinophils # (Manual) Basophils # (Manual) PT INR Fibrinogen dRVVT Confirm Interp Factor V Activity POC ABG pH POC ABG pCO2 POC ABG pO2 ABG pO2 ABG HCO3 ABG Base Excess ABG Hemoglobin Oxyhemoglobin Sodium Potassium Chloride Carbon Dioxide BUN 64 H Creatinine 1.4 H Glucose 134 H POC Glucose 154 H Lactic Acid Calcium Phosphorus Magnesium Direct Bilirubin AST ALT Alkaline Phosphatase Lactate Dehydrogenase Troponin T C-Reactive Protein Total Protein Albumin Prealbumin Triglycerides Cholesterol LDL Cholesterol Direct HDL Cholesterol Urine pH Urine WBC (Auto) Urine Creatinine Urine Total Protein Fluid Total Protein Vancomycin Trough Rheumatoid Factor Complement C4 Miscellaneous Test Crossmatch 12/10/16 12/10/16 12/10/16 11:58 17:29 23:52 WBC RBC Hgb Hct MCV MCH MCHC RDW Plt Count Lymph % (Auto) [place] % (Auto) Lymph # [place] # Baso # Seg Neutrophils % Seg Neuts % (Manual) Lymphocytes % (Manual) Monocytes % (Manual) Eosinophils % (Manual) Basophils % (Manual) Nucleated RBC % Seg Neutrophils # Seg Neutrophils # Man Lymphocytes # (Manual) Monocytes # (Manual) Eosinophils # (Manual) Basophils # (Manual) PT INR Fibrinogen dRVVT Confirm Interp Factor V Activity POC ABG pH POC ABG pCO2 POC ABG pO2 ABG pO2 ABG HCO3 ABG Base Excess ABG Hemoglobin Oxyhemoglobin Sodium Potassium Chloride Carbon Dioxide BUN Creatinine Glucose POC Glucose 144 H 163 H 125 H Lactic Acid Calcium Phosphorus Magnesium Direct Bilirubin AST ALT Alkaline Phosphatase Lactate Dehydrogenase Troponin T C-Reactive Protein Total Protein Albumin Prealbumin Triglycerides Cholesterol LDL Cholesterol Direct HDL Cholesterol Urine pH Urine WBC (Auto) Urine Creatinine Urine Total Protein Fluid Total Protein Vancomycin Trough Rheumatoid Factor Complement C4 Miscellaneous Test Crossmatch 12/11/16 12/11/16 12/11/16 05:38 06:30 06:30 WBC 14.4 H RBC 2.76 L Hgb 7.7 L Hct 23.4 L MCV MCH MCHC RDW 17.2 H Plt Count Lymph % (Auto) [place] % (Auto) 8.8 H Lymph # [place] # 1.3 H Baso # Seg Neutrophils % 72.5 H Seg Neuts % (Manual) Lymphocytes % (Manual) Monocytes % (Manual) Eosinophils % (Manual) Basophils % (Manual) Nucleated RBC % Seg Neutrophils # 10.5 H Seg Neutrophils # Man Lymphocytes # (Manual) Monocytes # (Manual) Eosinophils # (Manual) Basophils # (Manual) PT INR Fibrinogen dRVVT Confirm Interp Factor V Activity POC ABG pH POC ABG pCO2 POC ABG pO2 ABG pO2 ABG HCO3 ABG Base Excess ABG Hemoglobin Oxyhemoglobin Sodium Potassium Chloride Carbon Dioxide BUN 43 H Creatinine Glucose 124 H POC Glucose 141 H Lactic Acid Calcium 8.3 L Phosphorus Magnesium 1.60 L Direct Bilirubin AST ALT Alkaline Phosphatase Lactate Dehydrogenase Troponin T C-Reactive Protein Total Protein Albumin Prealbumin Triglycerides Cholesterol LDL Cholesterol Direct HDL Cholesterol Urine pH Urine WBC (Auto) Urine Creatinine Urine Total Protein Fluid Total Protein Vancomycin Trough Rheumatoid Factor Complement C4 Miscellaneous Test Crossmatch 12/11/16 12/11/16 12/11/16 11:15 17:59 23:48 WBC RBC Hgb Hct MCV MCH MCHC RDW Plt Count Lymph % (Auto) [place] % (Auto) Lymph # [place] # Baso # Seg Neutrophils % Seg Neuts % (Manual) Lymphocytes % (Manual) Monocytes % (Manual) Eosinophils % (Manual) Basophils % (Manual) Nucleated RBC % Seg Neutrophils # Seg Neutrophils # Man Lymphocytes # (Manual) Monocytes # (Manual) Eosinophils # (Manual) Basophils # (Manual) PT INR Fibrinogen dRVVT Confirm Interp Factor V Activity POC ABG pH POC ABG pCO2 POC ABG pO2 ABG pO2 ABG HCO3 ABG Base Excess ABG Hemoglobin Oxyhemoglobin Sodium Potassium Chloride Carbon Dioxide BUN Creatinine Glucose POC Glucose 188 H 106 H 119 H Lactic Acid Calcium Phosphorus Magnesium Direct Bilirubin AST ALT Alkaline Phosphatase Lactate Dehydrogenase Troponin T C-Reactive Protein Total Protein Albumin Prealbumin Triglycerides Cholesterol LDL Cholesterol Direct HDL Cholesterol Urine pH Urine WBC (Auto) Urine Creatinine Urine Total Protein Fluid Total Protein Vancomycin Trough Rheumatoid Factor Complement C4 Miscellaneous Test Crossmatch 12/12/16 12/12/16 12/12/16 05:00 06:01 12:20 WBC 16.7 H RBC 2.87 L Hgb 8.0 L Hct 24.2 L MCV MCH MCHC RDW 17.6 H Plt Count Lymph % (Auto) [place] % (Auto) Lymph # [place] # 1.2 H Baso # Seg Neutrophils % 75.3 H Seg Neuts % (Manual) Lymphocytes % (Manual) Monocytes % (Manual) Eosinophils % (Manual) Basophils % (Manual) Nucleated RBC % Seg Neutrophils # 12.6 H Seg Neutrophils # Man Lymphocytes # (Manual) Monocytes # (Manual) Eosinophils # (Manual) Basophils # (Manual) PT INR Fibrinogen dRVVT Confirm Interp Factor V Activity POC ABG pH POC ABG pCO2 POC ABG pO2 ABG pO2 ABG HCO3 ABG Base Excess ABG Hemoglobin Oxyhemoglobin Sodium Potassium Chloride Carbon Dioxide BUN Creatinine Glucose POC Glucose 134 H 149 H Lactic Acid Calcium Phosphorus Magnesium Direct Bilirubin AST ALT Alkaline Phosphatase Lactate Dehydrogenase Troponin T C-Reactive Protein Total Protein Albumin Prealbumin Triglycerides Cholesterol LDL Cholesterol Direct HDL Cholesterol Urine pH Urine WBC (Auto) Urine Creatinine Urine Total Protein Fluid Total Protein Vancomycin Trough Rheumatoid Factor Complement C4 Miscellaneous Test Crossmatch 12/12/16 12/12/16 12/12/16 17:38 23:01 Unknown WBC RBC Hgb Hct MCV MCH MCHC RDW Plt Count Lymph % (Auto) [place] % (Auto) Lymph # [place] # Baso # Seg Neutrophils % Seg Neuts % (Manual) Lymphocytes % (Manual) Monocytes % (Manual) Eosinophils % (Manual) Basophils % (Manual) Nucleated RBC % Seg Neutrophils # Seg Neutrophils # Man Lymphocytes # (Manual) Monocytes # (Manual) Eosinophils # (Manual) Basophils # (Manual) PT INR Fibrinogen dRVVT Confirm Interp Factor V Activity POC ABG pH POC ABG pCO2 POC ABG pO2 ABG pO2 ABG HCO3 ABG Base Excess ABG Hemoglobin Oxyhemoglobin Sodium Potassium Chloride Carbon Dioxide BUN 60 H Creatinine 1.3 H Glucose 126 H POC Glucose 127 H 144 H Lactic Acid Calcium Phosphorus Magnesium Direct Bilirubin AST ALT Alkaline Phosphatase Lactate Dehydrogenase Troponin T C-Reactive Protein Total Protein Albumin Prealbumin Triglycerides Cholesterol LDL Cholesterol Direct HDL Cholesterol Urine pH Urine WBC (Auto) Urine Creatinine Urine Total Protein Fluid Total Protein Vancomycin Trough Rheumatoid Factor Complement C4 Miscellaneous Test Crossmatch 12/13/16 12/13/16 12/13/16 04:00 04:00 05:19 WBC 18.7 H RBC 2.89 L Hgb 8.3 L Hct 24.6 L MCV MCH MCHC RDW 17.5 H Plt Count Lymph % (Auto) [place] % (Auto) Lymph # [place] # 1.3 H Baso # Seg Neutrophils % 71.5 H Seg Neuts % (Manual) Lymphocytes % (Manual) Monocytes % (Manual) Eosinophils % (Manual) Basophils % (Manual) Nucleated RBC % Seg Neutrophils # 13.4 H Seg Neutrophils # Man Lymphocytes # (Manual) Monocytes # (Manual) Eosinophils # (Manual) Basophils # (Manual) PT INR Fibrinogen dRVVT Confirm Interp Factor V Activity POC ABG pH POC ABG pCO2 POC ABG pO2 ABG pO2 ABG HCO3 ABG Base Excess ABG Hemoglobin Oxyhemoglobin Sodium Potassium Chloride Carbon Dioxide BUN 73 H Creatinine 1.5 H Glucose 141 H POC Glucose 171 H Lactic Acid Calcium Phosphorus Magnesium Direct Bilirubin AST ALT Alkaline Phosphatase Lactate Dehydrogenase Troponin T C-Reactive Protein Total Protein Albumin Prealbumin Triglycerides Cholesterol LDL Cholesterol Direct HDL Cholesterol Urine pH Urine WBC (Auto) Urine Creatinine Urine Total Protein Fluid Total Protein Vancomycin Trough Rheumatoid Factor Complement C4 Miscellaneous Test Crossmatch 12/13/16 12/13/16 12/14/16 12:28 16:48 00:01 WBC RBC Hgb Hct MCV MCH MCHC RDW Plt Count Lymph % (Auto) [place] % (Auto) Lymph # [place] # Baso # Seg Neutrophils % Seg Neuts % (Manual) Lymphocytes % (Manual) Monocytes % (Manual) Eosinophils % (Manual) Basophils % (Manual) Nucleated RBC % Seg Neutrophils # Seg Neutrophils # Man Lymphocytes # (Manual) Monocytes # (Manual) Eosinophils # (Manual) Basophils # (Manual) PT INR Fibrinogen dRVVT Confirm Interp Factor V Activity POC ABG pH POC ABG pCO2 POC ABG pO2 ABG pO2 ABG HCO3 ABG Base Excess ABG Hemoglobin Oxyhemoglobin Sodium Potassium Chloride Carbon Dioxide BUN Creatinine Glucose POC Glucose 206 H 173 H 139 H Lactic Acid Calcium Phosphorus Magnesium Direct Bilirubin AST ALT Alkaline Phosphatase Lactate Dehydrogenase Troponin T C-Reactive Protein Total Protein Albumin Prealbumin Triglycerides Cholesterol LDL Cholesterol Direct HDL Cholesterol Urine pH Urine WBC (Auto) Urine Creatinine Urine Total Protein Fluid Total Protein Vancomycin Trough Rheumatoid Factor Complement C4 Miscellaneous Test Crossmatch 12/14/16 12/14/16 12/14/16 05:16 06:10 11:17 WBC RBC Hgb Hct MCV MCH MCHC RDW Plt Count Lymph % (Auto) [place] % (Auto) Lymph # [place] # Baso # Seg Neutrophils % Seg Neuts % (Manual) Lymphocytes % (Manual) Monocytes % (Manual) Eosinophils % (Manual) Basophils % (Manual) Nucleated RBC % Seg Neutrophils # Seg Neutrophils # Man Lymphocytes # (Manual) Monocytes # (Manual) Eosinophils # (Manual) Basophils # (Manual) PT INR Fibrinogen dRVVT Confirm Interp Factor V Activity POC ABG pH POC ABG pCO2 POC ABG pO2 ABG pO2 ABG HCO3 ABG Base Excess ABG Hemoglobin Oxyhemoglobin Sodium Potassium Chloride Carbon Dioxide BUN 57 H Creatinine 1.4 H Glucose 135 H POC Glucose 158 H 137 H Lactic Acid Calcium Phosphorus Magnesium Direct Bilirubin AST ALT Alkaline Phosphatase Lactate Dehydrogenase Troponin T C-Reactive Protein Total Protein Albumin Prealbumin Triglycerides Cholesterol LDL Cholesterol Direct HDL Cholesterol Urine pH Urine WBC (Auto) Urine Creatinine Urine Total Protein Fluid Total Protein Vancomycin Trough Rheumatoid Factor Complement C4 Miscellaneous Test Crossmatch 12/14/16 12/14/16 12/15/16 17:52 23:27 04:00 WBC RBC Hgb Hct MCV MCH MCHC RDW Plt Count Lymph % (Auto) [place] % (Auto) Lymph # [place] # Baso # Seg Neutrophils % Seg Neuts % (Manual) Lymphocytes % (Manual) Monocytes % (Manual) Eosinophils % (Manual) Basophils % (Manual) Nucleated RBC % Seg Neutrophils # Seg Neutrophils # Man Lymphocytes # (Manual) Monocytes # (Manual) Eosinophils # (Manual) Basophils # (Manual) PT INR Fibrinogen dRVVT Confirm Interp Factor V Activity POC ABG pH POC ABG pCO2 POC ABG pO2 ABG pO2 ABG HCO3 ABG Base Excess ABG Hemoglobin Oxyhemoglobin Sodium Potassium Chloride 97.9 L Carbon Dioxide BUN 75 H Creatinine 1.6 H Glucose 122 H POC Glucose 149 H 163 H Lactic Acid Calcium Phosphorus 5.20 H Magnesium Direct Bilirubin AST ALT Alkaline Phosphatase Lactate Dehydrogenase Troponin T C-Reactive Protein Total Protein Albumin Prealbumin Triglycerides Cholesterol LDL Cholesterol Direct HDL Cholesterol Urine pH Urine WBC (Auto) Urine Creatinine Urine Total Protein Fluid Total Protein Vancomycin Trough Rheumatoid Factor Complement C4 Miscellaneous Test Crossmatch 12/15/16 12/15/16 12/15/16 05:50 11:24 17:01 WBC RBC Hgb Hct MCV MCH MCHC RDW Plt Count Lymph % (Auto) [place] % (Auto) Lymph # [place] # Baso # Seg Neutrophils % Seg Neuts % (Manual) Lymphocytes % (Manual) Monocytes % (Manual) Eosinophils % (Manual) Basophils % (Manual) Nucleated RBC % Seg Neutrophils # Seg Neutrophils # Man Lymphocytes # (Manual) Monocytes # (Manual) Eosinophils # (Manual) Basophils # (Manual) PT INR Fibrinogen dRVVT Confirm Interp Factor V Activity POC ABG pH POC ABG pCO2 POC ABG pO2 ABG pO2 ABG HCO3 ABG Base Excess ABG Hemoglobin Oxyhemoglobin Sodium Potassium Chloride Carbon Dioxide BUN Creatinine Glucose POC Glucose 150 H 146 H 167 H Lactic Acid Calcium Phosphorus Magnesium Direct Bilirubin AST ALT Alkaline Phosphatase Lactate Dehydrogenase Troponin T C-Reactive Protein Total Protein Albumin Prealbumin Triglycerides Cholesterol LDL Cholesterol Direct HDL Cholesterol Urine pH Urine WBC (Auto) Urine Creatinine Urine Total Protein Fluid Total Protein Vancomycin Trough Rheumatoid Factor Complement C4 Miscellaneous Test Crossmatch 12/15/16 12/16/16 12/16/16 23:34 05:25 11:24 WBC RBC Hgb Hct MCV MCH MCHC RDW Plt Count Lymph % (Auto) [place] % (Auto) Lymph # [place] # Baso # Seg Neutrophils % Seg Neuts % (Manual) Lymphocytes % (Manual) Monocytes % (Manual) Eosinophils % (Manual) Basophils % (Manual) Nucleated RBC % Seg Neutrophils # Seg Neutrophils # Man Lymphocytes # (Manual) Monocytes # (Manual) Eosinophils # (Manual) Basophils # (Manual) PT INR Fibrinogen dRVVT Confirm Interp Factor V Activity POC ABG pH POC ABG pCO2 POC ABG pO2 ABG pO2 ABG HCO3 ABG Base Excess ABG Hemoglobin Oxyhemoglobin Sodium Potassium Chloride Carbon Dioxide BUN Creatinine Glucose POC Glucose 127 H 139 H 165 H Lactic Acid Calcium Phosphorus Magnesium Direct Bilirubin AST ALT Alkaline Phosphatase Lactate Dehydrogenase Troponin T C-Reactive Protein Total Protein Albumin Prealbumin Triglycerides Cholesterol LDL Cholesterol Direct HDL Cholesterol Urine pH Urine WBC (Auto) Urine Creatinine Urine Total Protein Fluid Total Protein Vancomycin Trough Rheumatoid Factor Complement C4 Miscellaneous Test Crossmatch 12/16/16 12/16/16 12/16/16 15:30 16:25 17:31 WBC 17.8 H RBC 2.38 L Hgb 6.4 L Hct 20.3 L MCV MCH 27 L MCHC RDW 17.4 H Plt Count Lymph % (Auto) [place] % (Auto) Lymph # [place] # Baso # Seg Neutrophils % Seg Neuts % (Manual) Lymphocytes % (Manual) Monocytes % (Manual) 10.0 H Eosinophils % (Manual) Basophils % (Manual) Nucleated RBC % Seg Neutrophils # Seg Neutrophils # Man 8.5 H Lymphocytes # (Manual) Monocytes # (Manual) 1.8 H Eosinophils # (Manual) Basophils # (Manual) PT INR Fibrinogen dRVVT Confirm Interp Factor V Activity POC ABG pH POC ABG pCO2 POC ABG pO2 ABG pO2 ABG HCO3 ABG Base Excess ABG Hemoglobin Oxyhemoglobin Sodium Potassium Chloride Carbon Dioxide BUN Creatinine Glucose POC Glucose 176 H Lactic Acid Calcium Phosphorus Magnesium Direct Bilirubin AST ALT Alkaline Phosphatase Lactate Dehydrogenase Troponin T C-Reactive Protein Total Protein Albumin Prealbumin Triglycerides Cholesterol LDL Cholesterol Direct HDL Cholesterol Urine pH Urine WBC (Auto) Urine Creatinine Urine Total Protein Fluid Total Protein Vancomycin Trough Rheumatoid Factor Complement C4 Miscellaneous Test Crossmatch See Detail 12/17/16 12/17/16 12/17/16 00:14 04:00 05:00 WBC 20.0 H RBC 2.99 L Hgb 8.5 L Hct 25.7 L MCV MCH MCHC RDW 17.2 H Plt Count Lymph % (Auto) [place] % (Auto) Lymph # [place] # Baso # Seg Neutrophils % Seg Neuts % (Manual) Lymphocytes % (Manual) Monocytes % (Manual) Eosinophils % (Manual) Basophils % (Manual) Nucleated RBC % Seg Neutrophils # Seg Neutrophils # Man Lymphocytes # (Manual) Monocytes # (Manual) Eosinophils # (Manual) Basophils # (Manual) PT INR Fibrinogen dRVVT Confirm Interp Factor V Activity POC ABG pH POC ABG pCO2 POC ABG pO2 ABG pO2 ABG HCO3 ABG Base Excess ABG Hemoglobin Oxyhemoglobin Sodium Potassium Chloride 97.7 L Carbon Dioxide BUN 73 H Creatinine 1.7 H Glucose 136 H POC Glucose 148 H Lactic Acid Calcium Phosphorus 2.20 L Magnesium 2.70 H Direct Bilirubin AST ALT Alkaline Phosphatase Lactate Dehydrogenase Troponin T C-Reactive Protein Total Protein Albumin Prealbumin Triglycerides Cholesterol LDL Cholesterol Direct HDL Cholesterol Urine pH Urine WBC (Auto) Urine Creatinine Urine Total Protein Fluid Total Protein Vancomycin Trough Rheumatoid Factor Complement C4 Miscellaneous Test Crossmatch 12/17/16 12/17/16 12/17/16 05:39 12:50 16:32 WBC RBC Hgb Hct MCV MCH MCHC RDW Plt Count Lymph % (Auto) [place] % (Auto) Lymph # [place] # Baso # Seg Neutrophils % Seg Neuts % (Manual) Lymphocytes % (Manual) Monocytes % (Manual) Eosinophils % (Manual) Basophils % (Manual) Nucleated RBC % Seg Neutrophils # Seg Neutrophils # Man Lymphocytes # (Manual) Monocytes # (Manual) Eosinophils # (Manual) Basophils # (Manual) PT INR Fibrinogen dRVVT Confirm Interp Factor V Activity POC ABG pH POC ABG pCO2 POC ABG pO2 ABG pO2 ABG HCO3 ABG Base Excess ABG Hemoglobin Oxyhemoglobin Sodium Potassium Chloride Carbon Dioxide BUN Creatinine Glucose POC Glucose 162 H 146 H 169 H Lactic Acid Calcium Phosphorus Magnesium Direct Bilirubin AST ALT Alkaline Phosphatase Lactate Dehydrogenase Troponin T C-Reactive Protein Total Protein Albumin Prealbumin Triglycerides Cholesterol LDL Cholesterol Direct HDL Cholesterol Urine pH Urine WBC (Auto) Urine Creatinine Urine Total Protein Fluid Total Protein Vancomycin Trough Rheumatoid Factor Complement C4 Miscellaneous Test Crossmatch 12/17/16 12/18/16 12/18/16 23:57 05:00 05:32 WBC RBC Hgb Hct MCV MCH MCHC RDW Plt Count Lymph % (Auto) [place] % (Auto) Lymph # [place] # Baso # Seg Neutrophils % Seg Neuts % (Manual) Lymphocytes % (Manual) Monocytes % (Manual) Eosinophils % (Manual) Basophils % (Manual) Nucleated RBC % Seg Neutrophils # Seg Neutrophils # Man Lymphocytes # (Manual) Monocytes # (Manual) Eosinophils # (Manual) Basophils # (Manual) PT INR Fibrinogen dRVVT Confirm Interp Factor V Activity POC ABG pH POC ABG pCO2 POC ABG pO2 ABG pO2 ABG HCO3 ABG Base Excess ABG Hemoglobin Oxyhemoglobin Sodium Potassium Chloride 97.0 L Carbon Dioxide BUN 63 H Creatinine 1.4 H Glucose 174 H POC Glucose 145 H 201 H Lactic Acid Calcium Phosphorus 1.70 L D Magnesium Direct Bilirubin AST ALT Alkaline Phosphatase 257 H Lactate Dehydrogenase Troponin T C-Reactive Protein Total Protein 5.9 L Albumin 1.8 L Prealbumin Triglycerides Cholesterol LDL Cholesterol Direct HDL Cholesterol Urine pH Urine WBC (Auto) Urine Creatinine Urine Total Protein Fluid Total Protein Vancomycin Trough Rheumatoid Factor Complement C4 Miscellaneous Test Crossmatch 12/18/16 12/18/16 12/18/16 11:43 16:52 23:52 WBC RBC Hgb Hct MCV MCH MCHC RDW Plt Count Lymph % (Auto) [place] % (Auto) Lymph # [place] # Baso # Seg Neutrophils % Seg Neuts % (Manual) Lymphocytes % (Manual) Monocytes % (Manual) Eosinophils % (Manual) Basophils % (Manual) Nucleated RBC % Seg Neutrophils # Seg Neutrophils # Man Lymphocytes # (Manual) Monocytes # (Manual) Eosinophils # (Manual) Basophils # (Manual) PT INR Fibrinogen dRVVT Confirm Interp Factor V Activity POC ABG pH POC ABG pCO2 POC ABG pO2 ABG pO2 ABG HCO3 ABG Base Excess ABG Hemoglobin Oxyhemoglobin Sodium Potassium Chloride Carbon Dioxide BUN Creatinine Glucose POC Glucose 177 H 110 H 162 H Lactic Acid Calcium Phosphorus Magnesium Direct Bilirubin AST ALT Alkaline Phosphatase Lactate Dehydrogenase Troponin T C-Reactive Protein Total Protein Albumin Prealbumin Triglycerides Cholesterol LDL Cholesterol Direct HDL Cholesterol Urine pH Urine WBC (Auto) Urine Creatinine Urine Total Protein Fluid Total Protein Vancomycin Trough Rheumatoid Factor Complement C4 Miscellaneous Test Crossmatch 12/19/16 12/19/16 12/19/16 05:02 05:24 09:30 WBC 20.1 H RBC 2.73 L Hgb 7.6 L Hct 23.6 L MCV MCH MCHC RDW 17.6 H Plt Count Lymph % (Auto) [place] % (Auto) Lymph # [place] # Baso # Seg Neutrophils % Seg Neuts % (Manual) Lymphocytes % (Manual) 13.0 L Monocytes % (Manual) Eosinophils % (Manual) Basophils % (Manual) Nucleated RBC % 1.0 H Seg Neutrophils # Seg Neutrophils # Man 12.9 H Lymphocytes # (Manual) Monocytes # (Manual) 1.4 H Eosinophils # (Manual) Basophils # (Manual) 0.2 H PT INR Fibrinogen dRVVT Confirm Interp Factor V Activity POC ABG pH POC ABG pCO2 POC ABG pO2 ABG pO2 ABG HCO3 ABG Base Excess ABG Hemoglobin Oxyhemoglobin Sodium Potassium Chloride 97.8 L Carbon Dioxide BUN 84 H Creatinine 1.6 H Glucose 133 H POC Glucose 134 H Lactic Acid Calcium Phosphorus Magnesium Direct Bilirubin AST ALT Alkaline Phosphatase Lactate Dehydrogenase Troponin T C-Reactive Protein Total Protein Albumin Prealbumin Triglycerides Cholesterol LDL Cholesterol Direct HDL Cholesterol Urine pH Urine WBC (Auto) Urine Creatinine Urine Total Protein Fluid Total Protein Vancomycin Trough Rheumatoid Factor Complement C4 Miscellaneous Test Crossmatch 12/19/16 12/19/16 12/19/16 09:36 11:12 18:29 WBC RBC Hgb Hct MCV MCH MCHC RDW Plt Count Lymph % (Auto) [place] % (Auto) Lymph # [place] # Baso # Seg Neutrophils % Seg Neuts % (Manual) Lymphocytes % (Manual) Monocytes % (Manual) Eosinophils % (Manual) Basophils % (Manual) Nucleated RBC % Seg Neutrophils # Seg Neutrophils # Man Lymphocytes # (Manual) Monocytes # (Manual) Eosinophils # (Manual) Basophils # (Manual) PT INR Fibrinogen dRVVT Confirm Interp Factor V Activity POC ABG pH 7.503 H POC ABG pCO2 30.1 L POC ABG pO2 ABG pO2 ABG HCO3 ABG Base Excess ABG Hemoglobin Oxyhemoglobin Sodium Potassium Chloride Carbon Dioxide BUN Creatinine Glucose POC Glucose 138 H 156 H Lactic Acid Calcium Phosphorus Magnesium Direct Bilirubin AST ALT Alkaline Phosphatase Lactate Dehydrogenase Troponin T C-Reactive Protein Total Protein Albumin Prealbumin Triglycerides Cholesterol LDL Cholesterol Direct HDL Cholesterol Urine pH Urine WBC (Auto) Urine Creatinine Urine Total Protein Fluid Total Protein Vancomycin Trough Rheumatoid Factor Complement C4 Miscellaneous Test Crossmatch 12/20/16 12/20/16 12/20/16 00:03 06:17 07:07 WBC RBC Hgb Hct MCV MCH MCHC RDW Plt Count Lymph % (Auto) [place] % (Auto) Lymph # [place] # Baso # Seg Neutrophils % Seg Neuts % (Manual) Lymphocytes % (Manual) Monocytes % (Manual) Eosinophils % (Manual) Basophils % (Manual) Nucleated RBC % Seg Neutrophils # Seg Neutrophils # Man Lymphocytes # (Manual) Monocytes # (Manual) Eosinophils # (Manual) Basophils # (Manual) PT INR Fibrinogen dRVVT Confirm Interp Factor V Activity POC ABG pH POC ABG pCO2 POC ABG pO2 ABG pO2 ABG HCO3 ABG Base Excess ABG Hemoglobin Oxyhemoglobin Sodium Potassium Chloride 97.1 L Carbon Dioxide 20 L BUN 97 H Creatinine 1.8 H Glucose 153 H POC Glucose 152 H 175 H Lactic Acid Calcium Phosphorus Magnesium Direct Bilirubin AST ALT Alkaline Phosphatase Lactate Dehydrogenase Troponin T C-Reactive Protein Total Protein Albumin Prealbumin Triglycerides Cholesterol LDL Cholesterol Direct HDL Cholesterol Urine pH Urine WBC (Auto) Urine Creatinine Urine Total Protein Fluid Total Protein Vancomycin Trough Rheumatoid Factor Complement C4 Miscellaneous Test Crossmatch 12/20/16 12/20/16 12/20/16 12:00 17:42 23:53 WBC RBC Hgb Hct MCV MCH MCHC RDW Plt Count Lymph % (Auto) [place] % (Auto) Lymph # [place] # Baso # Seg Neutrophils % Seg Neuts % (Manual) Lymphocytes % (Manual) Monocytes % (Manual) Eosinophils % (Manual) Basophils % (Manual) Nucleated RBC % Seg Neutrophils # Seg Neutrophils # Man Lymphocytes # (Manual) Monocytes # (Manual) Eosinophils # (Manual) Basophils # (Manual) PT INR Fibrinogen dRVVT Confirm Interp Factor V Activity POC ABG pH POC ABG pCO2 POC ABG pO2 ABG pO2 ABG HCO3 ABG Base Excess ABG Hemoglobin Oxyhemoglobin Sodium Potassium Chloride Carbon Dioxide BUN Creatinine Glucose POC Glucose 141 H 156 H 132 H Lactic Acid Calcium Phosphorus Magnesium Direct Bilirubin AST ALT Alkaline Phosphatase Lactate Dehydrogenase Troponin T C-Reactive Protein Total Protein Albumin Prealbumin Triglycerides Cholesterol LDL Cholesterol Direct HDL Cholesterol Urine pH Urine WBC (Auto) Urine Creatinine Urine Total Protein Fluid Total Protein Vancomycin Trough Rheumatoid Factor Complement C4 Miscellaneous Test Crossmatch 12/21/16 12/21/16 12/21/16 05:49 08:50 12:19 WBC RBC Hgb Hct MCV MCH MCHC RDW Plt Count Lymph % (Auto) [place] % (Auto) Lymph # [place] # Baso # Seg Neutrophils % Seg Neuts % (Manual) Lymphocytes % (Manual) Monocytes % (Manual) Eosinophils % (Manual) Basophils % (Manual) Nucleated RBC % Seg Neutrophils # Seg Neutrophils # Man Lymphocytes # (Manual) Monocytes # (Manual) Eosinophils # (Manual) Basophils # (Manual) PT INR Fibrinogen dRVVT Confirm Interp Factor V Activity POC ABG pH POC ABG pCO2 POC ABG pO2 ABG pO2 ABG HCO3 ABG Base Excess ABG Hemoglobin Oxyhemoglobin Sodium Potassium 5.2 H D Chloride Carbon Dioxide BUN 63 H Creatinine Glucose 122 H POC Glucose 132 H 136 H Lactic Acid Calcium 8.3 L Phosphorus Magnesium Direct Bilirubin AST ALT Alkaline Phosphatase Lactate Dehydrogenase Troponin T C-Reactive Protein Total Protein Albumin Prealbumin Triglycerides Cholesterol LDL Cholesterol Direct HDL Cholesterol Urine pH Urine WBC (Auto) Urine Creatinine Urine Total Protein Fluid Total Protein Vancomycin Trough Rheumatoid Factor Complement C4 Miscellaneous Test Crossmatch 12/21/16 12/21/16 12/22/16 17:22 23:58 05:49 WBC RBC Hgb Hct MCV MCH MCHC RDW Plt Count Lymph % (Auto) [place] % (Auto) Lymph # [place] # Baso # Seg Neutrophils % Seg Neuts % (Manual) Lymphocytes % (Manual) Monocytes % (Manual) Eosinophils % (Manual) Basophils % (Manual) Nucleated RBC % Seg Neutrophils # Seg Neutrophils # Man Lymphocytes # (Manual) Monocytes # (Manual) Eosinophils # (Manual) Basophils # (Manual) PT INR Fibrinogen dRVVT Confirm Interp Factor V Activity POC ABG pH POC ABG pCO2 POC ABG pO2 ABG pO2 ABG HCO3 ABG Base Excess ABG Hemoglobin Oxyhemoglobin Sodium Potassium Chloride Carbon Dioxide BUN Creatinine Glucose POC Glucose 135 H 149 H 140 H Lactic Acid Calcium Phosphorus Magnesium Direct Bilirubin AST ALT Alkaline Phosphatase Lactate Dehydrogenase Troponin T C-Reactive Protein Total Protein Albumin Prealbumin Triglycerides Cholesterol LDL Cholesterol Direct HDL Cholesterol Urine pH Urine WBC (Auto) Urine Creatinine Urine Total Protein Fluid Total Protein Vancomycin Trough Rheumatoid Factor Complement C4 Miscellaneous Test Crossmatch 12/22/16 12/22/16 12/22/16 06:10 11:17 17:31 WBC RBC Hgb Hct MCV MCH MCHC RDW Plt Count Lymph % (Auto) [place] % (Auto) Lymph # [place] # Baso # Seg Neutrophils % Seg Neuts % (Manual) Lymphocytes % (Manual) Monocytes % (Manual) Eosinophils % (Manual) Basophils % (Manual) Nucleated RBC % Seg Neutrophils # Seg Neutrophils # Man Lymphocytes # (Manual) Monocytes # (Manual) Eosinophils # (Manual) Basophils # (Manual) PT INR Fibrinogen dRVVT Confirm Interp Factor V Activity POC ABG pH POC ABG pCO2 POC ABG pO2 ABG pO2 ABG HCO3 ABG Base Excess ABG Hemoglobin Oxyhemoglobin Sodium Potassium Chloride Carbon Dioxide BUN 76 H Creatinine 1.5 H Glucose 241 H POC Glucose 193 H 148 H Lactic Acid Calcium Phosphorus Magnesium Direct Bilirubin AST ALT Alkaline Phosphatase Lactate Dehydrogenase Troponin T C-Reactive Protein Total Protein Albumin Prealbumin Triglycerides Cholesterol LDL Cholesterol Direct HDL Cholesterol Urine pH Urine WBC (Auto) Urine Creatinine Urine Total Protein Fluid Total Protein Vancomycin Trough Rheumatoid Factor Complement C4 Miscellaneous Test Crossmatch 12/22/16 12/23/16 12/23/16 23:58 05:00 05:26 WBC RBC Hgb Hct MCV MCH MCHC RDW Plt Count Lymph % (Auto) [place] % (Auto) Lymph # [place] # Baso # Seg Neutrophils % Seg Neuts % (Manual) Lymphocytes % (Manual) Monocytes % (Manual) Eosinophils % (Manual) Basophils % (Manual) Nucleated RBC % Seg Neutrophils # Seg Neutrophils # Man Lymphocytes # (Manual) Monocytes # (Manual) Eosinophils # (Manual) Basophils # (Manual) PT INR Fibrinogen dRVVT Confirm Interp Factor V Activity POC ABG pH POC ABG pCO2 POC ABG pO2 ABG pO2 ABG HCO3 ABG Base Excess ABG Hemoglobin Oxyhemoglobin Sodium Potassium Chloride Carbon Dioxide BUN 49 H Creatinine Glucose 143 H POC Glucose 165 H 154 H Lactic Acid Calcium 8.2 L Phosphorus Magnesium 1.60 L Direct Bilirubin AST ALT Alkaline Phosphatase Lactate Dehydrogenase Troponin T C-Reactive Protein Total Protein Albumin Prealbumin Triglycerides Cholesterol LDL Cholesterol Direct HDL Cholesterol Urine pH Urine WBC (Auto) Urine Creatinine Urine Total Protein Fluid Total Protein Vancomycin Trough Rheumatoid Factor Complement C4 Miscellaneous Test Crossmatch 12/23/16 12/23/16 12/24/16 12:35 17:01 00:01 WBC RBC Hgb Hct MCV MCH MCHC RDW Plt Count Lymph % (Auto) [place] % (Auto) Lymph # [place] # Baso # Seg Neutrophils % Seg Neuts % (Manual) Lymphocytes % (Manual) Monocytes % (Manual) Eosinophils % (Manual) Basophils % (Manual) Nucleated RBC % Seg Neutrophils # Seg Neutrophils # Man Lymphocytes # (Manual) Monocytes # (Manual) Eosinophils # (Manual) Basophils # (Manual) PT INR Fibrinogen dRVVT Confirm Interp Factor V Activity POC ABG pH POC ABG pCO2 POC ABG pO2 ABG pO2 ABG HCO3 ABG Base Excess ABG Hemoglobin Oxyhemoglobin Sodium Potassium Chloride Carbon Dioxide BUN Creatinine Glucose POC Glucose 164 H 149 H 135 H Lactic Acid Calcium Phosphorus Magnesium Direct Bilirubin AST ALT Alkaline Phosphatase Lactate Dehydrogenase Troponin T C-Reactive Protein Total Protein Albumin Prealbumin Triglycerides Cholesterol LDL Cholesterol Direct HDL Cholesterol Urine pH Urine WBC (Auto) Urine Creatinine Urine Total Protein Fluid Total Protein Vancomycin Trough Rheumatoid Factor Complement C4 Miscellaneous Test Crossmatch 12/24/16 12/24/16 12/24/16 05:41 07:01 11:38 WBC RBC Hgb Hct MCV MCH MCHC RDW Plt Count Lymph % (Auto) [place] % (Auto) Lymph # [place] # Baso # Seg Neutrophils % Seg Neuts % (Manual) Lymphocytes % (Manual) Monocytes % (Manual) Eosinophils % (Manual) Basophils % (Manual) Nucleated RBC % Seg Neutrophils # Seg Neutrophils # Man Lymphocytes # (Manual) Monocytes # (Manual) Eosinophils # (Manual) Basophils # (Manual) PT INR Fibrinogen dRVVT Confirm Interp Factor V Activity POC ABG pH POC ABG pCO2 POC ABG pO2 ABG pO2 ABG HCO3 ABG Base Excess ABG Hemoglobin Oxyhemoglobin Sodium Potassium Chloride Carbon Dioxide BUN 72 H Creatinine 1.3 H Glucose 130 H POC Glucose 132 H 156 H Lactic Acid Calcium 8.2 L Phosphorus Magnesium Direct Bilirubin AST ALT Alkaline Phosphatase Lactate Dehydrogenase Troponin T C-Reactive Protein Total Protein Albumin Prealbumin Triglycerides Cholesterol LDL Cholesterol Direct HDL Cholesterol Urine pH Urine WBC (Auto) Urine Creatinine Urine Total Protein Fluid Total Protein Vancomycin Trough Rheumatoid Factor Complement C4 Miscellaneous Test Crossmatch 12/24/16 12/25/16 12/25/16 17:53 00:23 05:45 WBC RBC Hgb Hct MCV MCH MCHC RDW Plt Count Lymph % (Auto) [place] % (Auto) Lymph # [place] # Baso # Seg Neutrophils % Seg Neuts % (Manual) Lymphocytes % (Manual) Monocytes % (Manual) Eosinophils % (Manual) Basophils % (Manual) Nucleated RBC % Seg Neutrophils # Seg Neutrophils # Man Lymphocytes # (Manual) Monocytes # (Manual) Eosinophils # (Manual) Basophils # (Manual) PT INR Fibrinogen dRVVT Confirm Interp Factor V Activity POC ABG pH POC ABG pCO2 POC ABG pO2 ABG pO2 ABG HCO3 ABG Base Excess ABG Hemoglobin Oxyhemoglobin Sodium 146 H Potassium Chloride Carbon Dioxide BUN 51 H Creatinine Glucose 109 H POC Glucose 169 H 117 H Lactic Acid Calcium Phosphorus Magnesium Direct Bilirubin AST ALT Alkaline Phosphatase Lactate Dehydrogenase Troponin T C-Reactive Protein Total Protein Albumin Prealbumin Triglycerides Cholesterol LDL Cholesterol Direct HDL Cholesterol Urine pH Urine WBC (Auto) Urine Creatinine Urine Total Protein Fluid Total Protein Vancomycin Trough Rheumatoid Factor Complement C4 Miscellaneous Test Crossmatch 12/25/16 12/25/16 12/25/16 06:43 11:29 17:14 WBC RBC Hgb Hct MCV MCH MCHC RDW Plt Count Lymph % (Auto) [place] % (Auto) Lymph # [place] # Baso # Seg Neutrophils % Seg Neuts % (Manual) Lymphocytes % (Manual) Monocytes % (Manual) Eosinophils % (Manual) Basophils % (Manual) Nucleated RBC % Seg Neutrophils # Seg Neutrophils # Man Lymphocytes # (Manual) Monocytes # (Manual) Eosinophils # (Manual) Basophils # (Manual) PT INR Fibrinogen dRVVT Confirm Interp Factor V Activity POC ABG pH POC ABG pCO2 POC ABG pO2 ABG pO2 ABG HCO3 ABG Base Excess ABG Hemoglobin Oxyhemoglobin Sodium Potassium Chloride Carbon Dioxide BUN Creatinine Glucose POC Glucose 117 H 128 H 120 H Lactic Acid Calcium Phosphorus Magnesium Direct Bilirubin AST ALT Alkaline Phosphatase Lactate Dehydrogenase Troponin T C-Reactive Protein Total Protein Albumin Prealbumin Triglycerides Cholesterol LDL Cholesterol Direct HDL Cholesterol Urine pH Urine WBC (Auto) Urine Creatinine Urine Total Protein Fluid Total Protein Vancomycin Trough Rheumatoid Factor Complement C4 Miscellaneous Test Crossmatch 12/25/16 12/26/16 12/26/16 23:54 05:40 05:50 WBC 16.2 H RBC 2.32 L Hgb 6.2 L Hct 20.1 L MCV MCH 27 L MCHC RDW 18.6 H Plt Count Lymph % (Auto) [place] % (Auto) Lymph # [place] # Baso # Seg Neutrophils % Seg Neuts % (Manual) Lymphocytes % (Manual) Monocytes % (Manual) Eosinophils % (Manual) Basophils % (Manual) Nucleated RBC % Seg Neutrophils # Seg Neutrophils # Man Lymphocytes # (Manual) Monocytes # (Manual) Eosinophils # (Manual) Basophils # (Manual) PT INR Fibrinogen dRVVT Confirm Interp Factor V Activity POC ABG pH POC ABG pCO2 POC ABG pO2 ABG pO2 ABG HCO3 ABG Base Excess ABG Hemoglobin Oxyhemoglobin Sodium Potassium Chloride Carbon Dioxide BUN Creatinine Glucose POC Glucose 126 H 132 H Lactic Acid Calcium Phosphorus Magnesium Direct Bilirubin AST ALT Alkaline Phosphatase Lactate Dehydrogenase Troponin T C-Reactive Protein Total Protein Albumin Prealbumin Triglycerides Cholesterol LDL Cholesterol Direct HDL Cholesterol Urine pH Urine WBC (Auto) Urine Creatinine Urine Total Protein Fluid Total Protein Vancomycin Trough Rheumatoid Factor Complement C4 Miscellaneous Test Crossmatch 12/26/16 12/26/16 12/26/16 05:50 12:17 12:33 WBC RBC Hgb Hct MCV MCH MCHC RDW Plt Count Lymph % (Auto) [place] % (Auto) Lymph # [place] # Baso # Seg Neutrophils % Seg Neuts % (Manual) Lymphocytes % (Manual) Monocytes % (Manual) Eosinophils % (Manual) Basophils % (Manual) Nucleated RBC % Seg Neutrophils # Seg Neutrophils # Man Lymphocytes # (Manual) Monocytes # (Manual) Eosinophils # (Manual) Basophils # (Manual) PT INR Fibrinogen dRVVT Confirm Interp Factor V Activity POC ABG pH POC ABG pCO2 POC ABG pO2 ABG pO2 ABG HCO3 ABG Base Excess ABG Hemoglobin Oxyhemoglobin Sodium Potassium Chloride Carbon Dioxide BUN 73 H Creatinine 1.3 H Glucose 113 H POC Glucose 117 H Lactic Acid Calcium Phosphorus Magnesium Direct Bilirubin AST ALT Alkaline Phosphatase Lactate Dehydrogenase Troponin T C-Reactive Protein Total Protein Albumin Prealbumin Triglycerides Cholesterol LDL Cholesterol Direct HDL Cholesterol Urine pH Urine WBC (Auto) Urine Creatinine Urine Total Protein Fluid Total Protein Vancomycin Trough Rheumatoid Factor Complement C4 Miscellaneous Test Crossmatch See Detail 12/26/16 12/26/16 12/27/16 20:00 23:21 05:00 WBC RBC Hgb 8.4 L Hct 26.3 L D MCV MCH MCHC RDW Plt Count Lymph % (Auto) [place] % (Auto) Lymph # [place] # Baso # Seg Neutrophils % Seg Neuts % (Manual) Lymphocytes % (Manual) Monocytes % (Manual) Eosinophils % (Manual) Basophils % (Manual) Nucleated RBC % Seg Neutrophils # Seg Neutrophils # Man Lymphocytes # (Manual) Monocytes # (Manual) Eosinophils # (Manual) Basophils # (Manual) PT INR Fibrinogen dRVVT Confirm Interp Factor V Activity POC ABG pH POC ABG pCO2 POC ABG pO2 ABG pO2 ABG HCO3 ABG Base Excess ABG Hemoglobin Oxyhemoglobin Sodium Potassium Chloride Carbon Dioxide BUN 85 H Creatinine 1.6 H Glucose 118 H POC Glucose 124 H Lactic Acid Calcium Phosphorus 4.80 H Magnesium Direct Bilirubin AST ALT Alkaline Phosphatase Lactate Dehydrogenase Troponin T C-Reactive Protein Total Protein Albumin Prealbumin Triglycerides Cholesterol LDL Cholesterol Direct HDL Cholesterol Urine pH Urine WBC (Auto) Urine Creatinine Urine Total Protein Fluid Total Protein Vancomycin Trough Rheumatoid Factor Complement C4 Miscellaneous Test Crossmatch 12/27/16 12/27/16 12/27/16 05:00 05:35 12:24 WBC RBC Hgb 7.6 L Hct 22.8 L MCV MCH MCHC RDW Plt Count Lymph % (Auto) [place] % (Auto) Lymph # [place] # Baso # Seg Neutrophils % Seg Neuts % (Manual) Lymphocytes % (Manual) Monocytes % (Manual) Eosinophils % (Manual) Basophils % (Manual) Nucleated RBC % Seg Neutrophils # Seg Neutrophils # Man Lymphocytes # (Manual) Monocytes # (Manual) Eosinophils # (Manual) Basophils # (Manual) PT INR Fibrinogen dRVVT Confirm Interp Factor V Activity POC ABG pH POC ABG pCO2 POC ABG pO2 ABG pO2 ABG HCO3 ABG Base Excess ABG Hemoglobin Oxyhemoglobin Sodium Potassium Chloride Carbon Dioxide BUN Creatinine Glucose POC Glucose 115 H 131 H Lactic Acid Calcium Phosphorus Magnesium Direct Bilirubin AST ALT Alkaline Phosphatase Lactate Dehydrogenase Troponin T C-Reactive Protein Total Protein Albumin Prealbumin Triglycerides Cholesterol LDL Cholesterol Direct HDL Cholesterol Urine pH Urine WBC (Auto) Urine Creatinine Urine Total Protein Fluid Total Protein Vancomycin Trough Rheumatoid Factor Complement C4 Miscellaneous Test Crossmatch 12/27/16 12/28/16 12/28/16 17:16 00:18 04:00 WBC RBC Hgb Hct MCV MCH MCHC RDW Plt Count Lymph % (Auto) [place] % (Auto) Lymph # [place] # Baso # Seg Neutrophils % Seg Neuts % (Manual) Lymphocytes % (Manual) Monocytes % (Manual) Eosinophils % (Manual) Basophils % (Manual) Nucleated RBC % Seg Neutrophils # Seg Neutrophils # Man Lymphocytes # (Manual) Monocytes # (Manual) Eosinophils # (Manual) Basophils # (Manual) PT INR Fibrinogen dRVVT Confirm Interp Factor V Activity POC ABG pH POC ABG pCO2 POC ABG pO2 ABG pO2 ABG HCO3 ABG Base Excess ABG Hemoglobin Oxyhemoglobin Sodium Potassium 3.5 L Chloride Carbon Dioxide BUN 57 H Creatinine Glucose 118 H POC Glucose 136 H 120 H Lactic Acid Calcium 8.3 L Phosphorus Magnesium Direct Bilirubin AST ALT Alkaline Phosphatase Lactate Dehydrogenase Troponin T C-Reactive Protein Total Protein Albumin Prealbumin Triglycerides Cholesterol LDL Cholesterol Direct HDL Cholesterol Urine pH Urine WBC (Auto) Urine Creatinine Urine Total Protein Fluid Total Protein Vancomycin Trough Rheumatoid Factor Complement C4 Miscellaneous Test Crossmatch 12/28/16 12/28/16 12/28/16 04:00 05:11 08:30 WBC 17.0 H RBC 2.58 L Hgb 7.1 L Hct 22.0 L MCV MCH MCHC RDW 17.6 H Plt Count Lymph % (Auto) 12.2 L [place] % (Auto) Lymph # [place] # 1.1 H Baso # Seg Neutrophils % 80.5 H Seg Neuts % (Manual) Lymphocytes % (Manual) Monocytes % (Manual) Eosinophils % (Manual) Basophils % (Manual) Nucleated RBC % Seg Neutrophils # 13.7 H Seg Neutrophils # Man Lymphocytes # (Manual) Monocytes # (Manual) Eosinophils # (Manual) Basophils # (Manual) PT 16.1 H INR 1.23 H Fibrinogen dRVVT Confirm Interp Factor V Activity POC ABG pH POC ABG pCO2 POC ABG pO2 ABG pO2 ABG HCO3 ABG Base Excess ABG Hemoglobin Oxyhemoglobin Sodium Potassium Chloride Carbon Dioxide BUN Creatinine Glucose POC Glucose 122 H Lactic Acid Calcium Phosphorus Magnesium Direct Bilirubin AST ALT Alkaline Phosphatase Lactate Dehydrogenase Troponin T C-Reactive Protein Total Protein Albumin Prealbumin Triglycerides Cholesterol LDL Cholesterol Direct HDL Cholesterol Urine pH Urine WBC (Auto) Urine Creatinine Urine Total Protein Fluid Total Protein Vancomycin Trough Rheumatoid Factor Complement C4 Miscellaneous Test Crossmatch 12/28/16 12/28/16 12/28/16 12:27 16:32 23:46 WBC RBC Hgb Hct MCV MCH MCHC RDW Plt Count Lymph % (Auto) [place] % (Auto) Lymph # [place] # Baso # Seg Neutrophils % Seg Neuts % (Manual) Lymphocytes % (Manual) Monocytes % (Manual) Eosinophils % (Manual) Basophils % (Manual) Nucleated RBC % Seg Neutrophils # Seg Neutrophils # Man Lymphocytes # (Manual) Monocytes # (Manual) Eosinophils # (Manual) Basophils # (Manual) PT INR Fibrinogen dRVVT Confirm Interp Factor V Activity POC ABG pH POC ABG pCO2 POC ABG pO2 ABG pO2 ABG HCO3 ABG Base Excess ABG Hemoglobin Oxyhemoglobin Sodium Potassium Chloride Carbon Dioxide BUN Creatinine Glucose POC Glucose 127 H 117 H 108 H Lactic Acid Calcium Phosphorus Magnesium Direct Bilirubin AST ALT Alkaline Phosphatase Lactate Dehydrogenase Troponin T C-Reactive Protein Total Protein Albumin Prealbumin Triglycerides Cholesterol LDL Cholesterol Direct HDL Cholesterol Urine pH Urine WBC (Auto) Urine Creatinine Urine Total Protein Fluid Total Protein Vancomycin Trough Rheumatoid Factor Complement C4 Miscellaneous Test Crossmatch 12/29/16 12/29/16 12/29/16 05:15 05:15 05:32 WBC RBC Hgb Hct MCV MCH MCHC RDW Plt Count Lymph % (Auto) [place] % (Auto) Lymph # [place] # Baso # Seg Neutrophils % Seg Neuts % (Manual) Lymphocytes % (Manual) Monocytes % (Manual) Eosinophils % (Manual) Basophils % (Manual) Nucleated RBC % Seg Neutrophils # Seg Neutrophils # Man Lymphocytes # (Manual) Monocytes # (Manual) Eosinophils # (Manual) Basophils # (Manual) PT INR Fibrinogen dRVVT Confirm Interp Factor V Activity POC ABG pH POC ABG pCO2 POC ABG pO2 ABG pO2 ABG HCO3 ABG Base Excess ABG Hemoglobin Oxyhemoglobin Sodium Potassium Chloride Carbon Dioxide BUN 74 H Creatinine 1.6 H Glucose 111 H POC Glucose 123 H Lactic Acid Calcium Phosphorus Magnesium Direct Bilirubin AST ALT Alkaline Phosphatase Lactate Dehydrogenase Troponin T C-Reactive Protein Total Protein Albumin Prealbumin 0.110 L Triglycerides Cholesterol LDL Cholesterol Direct HDL Cholesterol Urine pH Urine WBC (Auto) Urine Creatinine Urine Total Protein Fluid Total Protein Vancomycin Trough Rheumatoid Factor Complement C4 Miscellaneous Test Crossmatch 12/29/16 12/29/16 12/29/16 11:43 13:45 14:00 WBC 13.8 H RBC 2.26 L Hgb 6.3 L Hct 20.4 L MCV MCH MCHC RDW 18.3 H Plt Count Lymph % (Auto) [place] % (Auto) Lymph # [place] # 0.9 H Baso # Seg Neutrophils % 78.6 H Seg Neuts % (Manual) Lymphocytes % (Manual) Monocytes % (Manual) Eosinophils % (Manual) Basophils % (Manual) Nucleated RBC % Seg Neutrophils # 10.8 H Seg Neutrophils # Man Lymphocytes # (Manual) Monocytes # (Manual) Eosinophils # (Manual) Basophils # (Manual) PT INR Fibrinogen dRVVT Confirm Interp Factor V Activity POC ABG pH POC ABG pCO2 POC ABG pO2 ABG pO2 ABG HCO3 ABG Base Excess ABG Hemoglobin Oxyhemoglobin Sodium Potassium Chloride Carbon Dioxide BUN Creatinine Glucose POC Glucose 133 H Lactic Acid Calcium Phosphorus Magnesium Direct Bilirubin AST ALT Alkaline Phosphatase Lactate Dehydrogenase Troponin T C-Reactive Protein Total Protein Albumin Prealbumin Triglycerides Cholesterol LDL Cholesterol Direct HDL Cholesterol Urine pH Urine WBC (Auto) Urine Creatinine Urine Total Protein Fluid Total Protein Vancomycin Trough Rheumatoid Factor Complement C4 Miscellaneous Test Crossmatch See Detail 12/29/16 12/29/16 12/29/16 17:03 23:15 23:22 WBC RBC Hgb 7.3 L Hct 22.3 L MCV MCH MCHC RDW Plt Count Lymph % (Auto) [place] % (Auto) Lymph # [place] # Baso # Seg Neutrophils % Seg Neuts % (Manual) Lymphocytes % (Manual) Monocytes % (Manual) Eosinophils % (Manual) Basophils % (Manual) Nucleated RBC % Seg Neutrophils # Seg Neutrophils # Man Lymphocytes # (Manual) Monocytes # (Manual) Eosinophils # (Manual) Basophils # (Manual) PT INR Fibrinogen dRVVT Confirm Interp Factor V Activity POC ABG pH POC ABG pCO2 POC ABG pO2 ABG pO2 ABG HCO3 ABG Base Excess ABG Hemoglobin Oxyhemoglobin Sodium Potassium Chloride Carbon Dioxide BUN Creatinine Glucose POC Glucose 139 H 120 H Lactic Acid Calcium Phosphorus Magnesium Direct Bilirubin AST ALT Alkaline Phosphatase Lactate Dehydrogenase Troponin T C-Reactive Protein Total Protein Albumin Prealbumin Triglycerides Cholesterol LDL Cholesterol Direct HDL Cholesterol Urine pH Urine WBC (Auto) Urine Creatinine Urine Total Protein Fluid Total Protein Vancomycin Trough Rheumatoid Factor Complement C4 Miscellaneous Test Crossmatch 12/30/16 12/30/16 12/30/16 04:20 04:20 05:43 WBC 15.6 H RBC 2.81 L Hgb 8.0 L Hct 24.0 L MCV MCH MCHC RDW 16.9 H Plt Count Lymph % (Auto) [place] % (Auto) Lymph # [place] # 1.0 H Baso # Seg Neutrophils % 76.2 H Seg Neuts % (Manual) Lymphocytes % (Manual) Monocytes % (Manual) Eosinophils % (Manual) Basophils % (Manual) Nucleated RBC % Seg Neutrophils # 11.9 H Seg Neutrophils # Man Lymphocytes # (Manual) Monocytes # (Manual) Eosinophils # (Manual) Basophils # (Manual) PT INR Fibrinogen dRVVT Confirm Interp Factor V Activity POC ABG pH POC ABG pCO2 POC ABG pO2 ABG pO2 ABG HCO3 ABG Base Excess ABG Hemoglobin Oxyhemoglobin Sodium Potassium Chloride Carbon Dioxide BUN 87 H Creatinine 1.8 H Glucose 119 H POC Glucose 115 H Lactic Acid Calcium Phosphorus Magnesium Direct Bilirubin AST ALT Alkaline Phosphatase Lactate Dehydrogenase Troponin T C-Reactive Protein Total Protein Albumin Prealbumin Triglycerides Cholesterol LDL Cholesterol Direct HDL Cholesterol Urine pH Urine WBC (Auto) Urine Creatinine Urine Total Protein Fluid Total Protein Vancomycin Trough Rheumatoid Factor Complement C4 Miscellaneous Test Crossmatch 12/30/16 12/30/16 12/31/16 17:27 23:21 04:00 WBC RBC Hgb Hct MCV MCH MCHC RDW Plt Count Lymph % (Auto) [place] % (Auto) Lymph # [place] # Baso # Seg Neutrophils % Seg Neuts % (Manual) Lymphocytes % (Manual) Monocytes % (Manual) Eosinophils % (Manual) Basophils % (Manual) Nucleated RBC % Seg Neutrophils # Seg Neutrophils # Man Lymphocytes # (Manual) Monocytes # (Manual) Eosinophils # (Manual) Basophils # (Manual) PT INR Fibrinogen dRVVT Confirm Interp Factor V Activity POC ABG pH POC ABG pCO2 POC ABG pO2 ABG pO2 ABG HCO3 ABG Base Excess ABG Hemoglobin Oxyhemoglobin Sodium Potassium Chloride Carbon Dioxide BUN 59 H Creatinine Glucose 298 H POC Glucose 144 H 125 H Lactic Acid Calcium Phosphorus Magnesium Direct Bilirubin AST ALT Alkaline Phosphatase Lactate Dehydrogenase Troponin T C-Reactive Protein Total Protein Albumin Prealbumin Triglycerides Cholesterol LDL Cholesterol Direct HDL Cholesterol Urine pH Urine WBC (Auto) Urine Creatinine Urine Total Protein Fluid Total Protein Vancomycin Trough Rheumatoid Factor Complement C4 Miscellaneous Test Crossmatch 12/31/16 12/31/16 12/31/16 05:11 12:18 18:17 WBC RBC Hgb Hct MCV MCH MCHC RDW Plt Count Lymph % (Auto) [place] % (Auto) Lymph # [place] # Baso # Seg Neutrophils % Seg Neuts % (Manual) Lymphocytes % (Manual) Monocytes % (Manual) Eosinophils % (Manual) Basophils % (Manual) Nucleated RBC % Seg Neutrophils # Seg Neutrophils # Man Lymphocytes # (Manual) Monocytes # (Manual) Eosinophils # (Manual) Basophils # (Manual) PT INR Fibrinogen dRVVT Confirm Interp Factor V Activity POC ABG pH POC ABG pCO2 POC ABG pO2 ABG pO2 ABG HCO3 ABG Base Excess ABG Hemoglobin Oxyhemoglobin Sodium Potassium Chloride Carbon Dioxide BUN Creatinine Glucose POC Glucose 167 H 125 H 133 H Lactic Acid Calcium Phosphorus Magnesium Direct Bilirubin AST ALT Alkaline Phosphatase Lactate Dehydrogenase Troponin T C-Reactive Protein Total Protein Albumin Prealbumin Triglycerides Cholesterol LDL Cholesterol Direct HDL Cholesterol Urine pH Urine WBC (Auto) Urine Creatinine Urine Total Protein Fluid Total Protein Vancomycin Trough Rheumatoid Factor Complement C4 Miscellaneous Test Crossmatch 12/31/16 01/01/17 01/01/17 23:55 05:00 05:12 WBC RBC Hgb Hct MCV MCH MCHC RDW Plt Count Lymph % (Auto) [place] % (Auto) Lymph # [place] # Baso # Seg Neutrophils % Seg Neuts % (Manual) Lymphocytes % (Manual) Monocytes % (Manual) Eosinophils % (Manual) Basophils % (Manual) Nucleated RBC % Seg Neutrophils # Seg Neutrophils # Man Lymphocytes # (Manual) Monocytes # (Manual) Eosinophils # (Manual) Basophils # (Manual) PT INR Fibrinogen dRVVT Confirm Interp Factor V Activity POC ABG pH POC ABG pCO2 POC ABG pO2 ABG pO2 ABG HCO3 ABG Base Excess ABG Hemoglobin Oxyhemoglobin Sodium Potassium Chloride Carbon Dioxide BUN 76 H Creatinine 1.5 H Glucose 109 H POC Glucose 129 H 129 H Lactic Acid Calcium Phosphorus Magnesium Direct Bilirubin AST ALT Alkaline Phosphatase 536 H Lactate Dehydrogenase Troponin T C-Reactive Protein Total Protein Albumin 1.5 L Prealbumin Triglycerides Cholesterol LDL Cholesterol Direct HDL Cholesterol Urine pH Urine WBC (Auto) Urine Creatinine Urine Total Protein Fluid Total Protein Vancomycin Trough Rheumatoid Factor Complement C4 Miscellaneous Test Crossmatch 01/01/17 01/01/17 01/01/17 12:25 17:01 23:32 WBC RBC Hgb Hct MCV MCH MCHC RDW Plt Count Lymph % (Auto) [place] % (Auto) Lymph # [place] # Baso # Seg Neutrophils % Seg Neuts % (Manual) Lymphocytes % (Manual) Monocytes % (Manual) Eosinophils % (Manual) Basophils % (Manual) Nucleated RBC % Seg Neutrophils # Seg Neutrophils # Man Lymphocytes # (Manual) Monocytes # (Manual) Eosinophils # (Manual) Basophils # (Manual) PT INR Fibrinogen dRVVT Confirm Interp Factor V Activity POC ABG pH POC ABG pCO2 POC ABG pO2 ABG pO2 ABG HCO3 ABG Base Excess ABG Hemoglobin Oxyhemoglobin Sodium Potassium Chloride Carbon Dioxide BUN Creatinine Glucose POC Glucose 140 H 142 H 112 H Lactic Acid Calcium Phosphorus Magnesium Direct Bilirubin AST ALT Alkaline Phosphatase Lactate Dehydrogenase Troponin T C-Reactive Protein Total Protein Albumin Prealbumin Triglycerides Cholesterol LDL Cholesterol Direct HDL Cholesterol Urine pH Urine WBC (Auto) Urine Creatinine Urine Total Protein Fluid Total Protein Vancomycin Trough Rheumatoid Factor Complement C4 Miscellaneous Test Crossmatch 01/02/17 01/02/17 01/02/17 04:56 06:00 11:37 WBC RBC Hgb Hct MCV MCH MCHC RDW Plt Count Lymph % (Auto) [place] % (Auto) Lymph # [place] # Baso # Seg Neutrophils % Seg Neuts % (Manual) Lymphocytes % (Manual) Monocytes % (Manual) Eosinophils % (Manual) Basophils % (Manual) Nucleated RBC % Seg Neutrophils # Seg Neutrophils # Man Lymphocytes # (Manual) Monocytes # (Manual) Eosinophils # (Manual) Basophils # (Manual) PT INR Fibrinogen dRVVT Confirm Interp Factor V Activity POC ABG pH POC ABG pCO2 POC ABG pO2 ABG pO2 ABG HCO3 ABG Base Excess ABG Hemoglobin Oxyhemoglobin Sodium Potassium Chloride Carbon Dioxide BUN 88 H Creatinine 1.7 H Glucose 113 H POC Glucose 136 H 200 H Lactic Acid Calcium Phosphorus Magnesium Direct Bilirubin AST ALT Alkaline Phosphatase Lactate Dehydrogenase Troponin T C-Reactive Protein Total Protein Albumin Prealbumin Triglycerides Cholesterol LDL Cholesterol Direct HDL Cholesterol Urine pH Urine WBC (Auto) Urine Creatinine Urine Total Protein Fluid Total Protein Vancomycin Trough Rheumatoid Factor Complement C4 Miscellaneous Test Crossmatch 01/02/17 01/02/17 01/03/17 17:42 22:52 04:54 WBC RBC Hgb Hct MCV MCH MCHC RDW Plt Count Lymph % (Auto) [place] % (Auto) Lymph # [place] # Baso # Seg Neutrophils % Seg Neuts % (Manual) Lymphocytes % (Manual) Monocytes % (Manual) Eosinophils % (Manual) Basophils % (Manual) Nucleated RBC % Seg Neutrophils # Seg Neutrophils # Man Lymphocytes # (Manual) Monocytes # (Manual) Eosinophils # (Manual) Basophils # (Manual) PT INR Fibrinogen dRVVT Confirm Interp Factor V Activity POC ABG pH POC ABG pCO2 POC ABG pO2 ABG pO2 ABG HCO3 ABG Base Excess ABG Hemoglobin Oxyhemoglobin Sodium Potassium Chloride Carbon Dioxide BUN Creatinine Glucose POC Glucose 112 H 133 H 111 H Lactic Acid Calcium Phosphorus Magnesium Direct Bilirubin AST ALT Alkaline Phosphatase Lactate Dehydrogenase Troponin T C-Reactive Protein Total Protein Albumin Prealbumin Triglycerides Cholesterol LDL Cholesterol Direct HDL Cholesterol Urine pH Urine WBC (Auto) Urine Creatinine Urine Total Protein Fluid Total Protein Vancomycin Trough Rheumatoid Factor Complement C4 Miscellaneous Test Crossmatch 01/03/17 01/03/17 01/03/17 05:00 05:00 14:02 WBC 11.2 H RBC 2.56 L Hgb 7.2 L Hct 22.3 L MCV MCH MCHC RDW 17.3 H Plt Count Lymph % (Auto) [place] % (Auto) 10.0 H Lymph # [place] # 1.1 H Baso # Seg Neutrophils % 70.5 H Seg Neuts % (Manual) Lymphocytes % (Manual) Monocytes % (Manual) Eosinophils % (Manual) Basophils % (Manual) Nucleated RBC % Seg Neutrophils # 7.9 H Seg Neutrophils # Man Lymphocytes # (Manual) Monocytes # (Manual) Eosinophils # (Manual) Basophils # (Manual) PT INR Fibrinogen dRVVT Confirm Interp Factor V Activity POC ABG pH POC ABG pCO2 POC ABG pO2 ABG pO2 ABG HCO3 ABG Base Excess ABG Hemoglobin Oxyhemoglobin Sodium Potassium Chloride Carbon Dioxide BUN 60 H Creatinine 1.3 H Glucose 110 H POC Glucose 119 H Lactic Acid Calcium Phosphorus Magnesium Direct Bilirubin AST ALT Alkaline Phosphatase Lactate Dehydrogenase Troponin T C-Reactive Protein Total Protein Albumin Prealbumin Triglycerides Cholesterol LDL Cholesterol Direct HDL Cholesterol Urine pH Urine WBC (Auto) Urine Creatinine Urine Total Protein Fluid Total Protein Vancomycin Trough Rheumatoid Factor Complement C4 Miscellaneous Test Crossmatch 01/03/17 01/03/17 01/04/17 18:13 23:40 05:57 WBC RBC Hgb Hct MCV MCH MCHC RDW Plt Count Lymph % (Auto) [place] % (Auto) Lymph # [place] # Baso # Seg Neutrophils % Seg Neuts % (Manual) Lymphocytes % (Manual) Monocytes % (Manual) Eosinophils % (Manual) Basophils % (Manual) Nucleated RBC % Seg Neutrophils # Seg Neutrophils # Man Lymphocytes # (Manual) Monocytes # (Manual) Eosinophils # (Manual) Basophils # (Manual) PT INR Fibrinogen dRVVT Confirm Interp Factor V Activity POC ABG pH POC ABG pCO2 POC ABG pO2 ABG pO2 ABG HCO3 ABG Base Excess ABG Hemoglobin Oxyhemoglobin Sodium Potassium Chloride Carbon Dioxide BUN Creatinine Glucose POC Glucose 107 H 129 H 111 H Lactic Acid Calcium Phosphorus Magnesium Direct Bilirubin AST ALT Alkaline Phosphatase Lactate Dehydrogenase Troponin T C-Reactive Protein Total Protein Albumin Prealbumin Triglycerides Cholesterol LDL Cholesterol Direct HDL Cholesterol Urine pH Urine WBC (Auto) Urine Creatinine Urine Total Protein Fluid Total Protein Vancomycin Trough Rheumatoid Factor Complement C4 Miscellaneous Test Crossmatch 01/04/17 01/04/17 01/04/17 12:46 15:27 17:11 WBC RBC Hgb Hct MCV MCH MCHC RDW Plt Count Lymph % (Auto) [place] % (Auto) Lymph # [place] # Baso # Seg Neutrophils % Seg Neuts % (Manual) Lymphocytes % (Manual) Monocytes % (Manual) Eosinophils % (Manual) Basophils % (Manual) Nucleated RBC % Seg Neutrophils # Seg Neutrophils # Man Lymphocytes # (Manual) Monocytes # (Manual) Eosinophils # (Manual) Basophils # (Manual) PT INR Fibrinogen dRVVT Confirm Interp Factor V Activity POC ABG pH POC ABG pCO2 POC ABG pO2 ABG pO2 ABG HCO3 ABG Base Excess ABG Hemoglobin Oxyhemoglobin Sodium Potassium Chloride Carbon Dioxide BUN 43 H Creatinine Glucose 124 H POC Glucose 159 H 125 H Lactic Acid Calcium 8.0 L Phosphorus 2.10 L Magnesium Direct Bilirubin AST ALT Alkaline Phosphatase Lactate Dehydrogenase Troponin T C-Reactive Protein Total Protein Albumin Prealbumin Triglycerides Cholesterol LDL Cholesterol Direct HDL Cholesterol Urine pH Urine WBC (Auto) Urine Creatinine Urine Total Protein Fluid Total Protein Vancomycin Trough Rheumatoid Factor Complement C4 Miscellaneous Test Crossmatch 01/04/17 01/05/17 01/05/17 23:31 04:00 05:46 WBC RBC Hgb Hct MCV MCH MCHC RDW Plt Count Lymph % (Auto) [place] % (Auto) Lymph # [place] # Baso # Seg Neutrophils % Seg Neuts % (Manual) Lymphocytes % (Manual) Monocytes % (Manual) Eosinophils % (Manual) Basophils % (Manual) Nucleated RBC % Seg Neutrophils # Seg Neutrophils # Man Lymphocytes # (Manual) Monocytes # (Manual) Eosinophils # (Manual) Basophils # (Manual) PT INR Fibrinogen dRVVT Confirm Interp Factor V Activity POC ABG pH POC ABG pCO2 POC ABG pO2 ABG pO2 ABG HCO3 ABG Base Excess ABG Hemoglobin Oxyhemoglobin Sodium Potassium Chloride Carbon Dioxide BUN 52 H Creatinine 1.3 H Glucose 113 H POC Glucose 123 H 118 H Lactic Acid Calcium Phosphorus 2.40 L Magnesium Direct Bilirubin AST ALT Alkaline Phosphatase Lactate Dehydrogenase Troponin T C-Reactive Protein Total Protein Albumin Prealbumin Triglycerides Cholesterol LDL Cholesterol Direct HDL Cholesterol Urine pH Urine WBC (Auto) Urine Creatinine Urine Total Protein Fluid Total Protein Vancomycin Trough Rheumatoid Factor Complement C4 Miscellaneous Test Crossmatch 01/05/17 01/05/17 01/05/17 11:41 17:48 23:27 WBC RBC Hgb Hct MCV MCH MCHC RDW Plt Count Lymph % (Auto) [place] % (Auto) Lymph # [place] # Baso # Seg Neutrophils % Seg Neuts % (Manual) Lymphocytes % (Manual) Monocytes % (Manual) Eosinophils % (Manual) Basophils % (Manual) Nucleated RBC % Seg Neutrophils # Seg Neutrophils # Man Lymphocytes # (Manual) Monocytes # (Manual) Eosinophils # (Manual) Basophils # (Manual) PT INR Fibrinogen dRVVT Confirm Interp Factor V Activity POC ABG pH POC ABG pCO2 POC ABG pO2 ABG pO2 ABG HCO3 ABG Base Excess ABG Hemoglobin Oxyhemoglobin Sodium Potassium Chloride Carbon Dioxide BUN Creatinine Glucose POC Glucose 163 H 142 H 155 H Lactic Acid Calcium Phosphorus Magnesium Direct Bilirubin AST ALT Alkaline Phosphatase Lactate Dehydrogenase Troponin T C-Reactive Protein Total Protein Albumin Prealbumin Triglycerides Cholesterol LDL Cholesterol Direct HDL Cholesterol Urine pH Urine WBC (Auto) Urine Creatinine Urine Total Protein Fluid Total Protein Vancomycin Trough Rheumatoid Factor Complement C4 Miscellaneous Test Crossmatch 01/06/17 01/06/17 01/06/17 05:20 07:35 11:18 WBC RBC Hgb Hct MCV MCH MCHC RDW Plt Count Lymph % (Auto) [place] % (Auto) Lymph # [place] # Baso # Seg Neutrophils % Seg Neuts % (Manual) Lymphocytes % (Manual) Monocytes % (Manual) Eosinophils % (Manual) Basophils % (Manual) Nucleated RBC % Seg Neutrophils # Seg Neutrophils # Man Lymphocytes # (Manual) Monocytes # (Manual) Eosinophils # (Manual) Basophils # (Manual) PT INR Fibrinogen dRVVT Confirm Interp Factor V Activity POC ABG pH POC ABG pCO2 POC ABG pO2 ABG pO2 ABG HCO3 ABG Base Excess ABG Hemoglobin Oxyhemoglobin Sodium Potassium Chloride Carbon Dioxide BUN 74 H Creatinine 1.6 H Glucose 135 H POC Glucose 108 H 149 H Lactic Acid Calcium Phosphorus Magnesium Direct Bilirubin AST ALT Alkaline Phosphatase Lactate Dehydrogenase Troponin T C-Reactive Protein Total Protein Albumin Prealbumin Triglycerides Cholesterol LDL Cholesterol Direct HDL Cholesterol Urine pH Urine WBC (Auto) Urine Creatinine Urine Total Protein Fluid Total Protein Vancomycin Trough Rheumatoid Factor Complement C4 Miscellaneous Test Crossmatch 01/06/17 01/07/17 01/07/17 17:17 00:23 05:31 WBC RBC Hgb Hct MCV MCH MCHC RDW Plt Count Lymph % (Auto) [place] % (Auto) Lymph # [place] # Baso # Seg Neutrophils % Seg Neuts % (Manual) Lymphocytes % (Manual) Monocytes % (Manual) Eosinophils % (Manual) Basophils % (Manual) Nucleated RBC % Seg Neutrophils # Seg Neutrophils # Man Lymphocytes # (Manual) Monocytes # (Manual) Eosinophils # (Manual) Basophils # (Manual) PT INR Fibrinogen dRVVT Confirm Interp Factor V Activity POC ABG pH POC ABG pCO2 POC ABG pO2 ABG pO2 ABG HCO3 ABG Base Excess ABG Hemoglobin Oxyhemoglobin Sodium Potassium Chloride Carbon Dioxide BUN Creatinine Glucose POC Glucose 146 H 165 H 153 H Lactic Acid Calcium Phosphorus Magnesium Direct Bilirubin AST ALT Alkaline Phosphatase Lactate Dehydrogenase Troponin T C-Reactive Protein Total Protein Albumin Prealbumin Triglycerides Cholesterol LDL Cholesterol Direct HDL Cholesterol Urine pH Urine WBC (Auto) Urine Creatinine Urine Total Protein Fluid Total Protein Vancomycin Trough Rheumatoid Factor Complement C4 Miscellaneous Test Crossmatch 01/07/17 01/07/17 01/07/17 06:00 11:39 17:11 WBC RBC Hgb Hct MCV MCH MCHC RDW Plt Count Lymph % (Auto) [place] % (Auto) Lymph # [place] # Baso # Seg Neutrophils % Seg Neuts % (Manual) Lymphocytes % (Manual) Monocytes % (Manual) Eosinophils % (Manual) Basophils % (Manual) Nucleated RBC % Seg Neutrophils # Seg Neutrophils # Man Lymphocytes # (Manual) Monocytes # (Manual) Eosinophils # (Manual) Basophils # (Manual) PT INR Fibrinogen dRVVT Confirm Interp Factor V Activity POC ABG pH POC ABG pCO2 POC ABG pO2 ABG pO2 ABG HCO3 ABG Base Excess ABG Hemoglobin Oxyhemoglobin Sodium Potassium Chloride Carbon Dioxide BUN 42 H Creatinine Glucose 175 H POC Glucose 163 H 163 H Lactic Acid Calcium Phosphorus 2.40 L D Magnesium Direct Bilirubin AST ALT Alkaline Phosphatase Lactate Dehydrogenase Troponin T C-Reactive Protein Total Protein Albumin Prealbumin Triglycerides Cholesterol LDL Cholesterol Direct HDL Cholesterol Urine pH Urine WBC (Auto) Urine Creatinine Urine Total Protein Fluid Total Protein Vancomycin Trough Rheumatoid Factor Complement C4 Miscellaneous Test Crossmatch 01/07/17 01/08/17 01/08/17 23:40 05:00 05:00 WBC 27.4 H RBC 2.27 L Hgb 6.1 L Hct 20.4 L MCV MCH 27 L MCHC RDW 17.8 H Plt Count Lymph % (Auto) [place] % (Auto) Lymph # [place] # Baso # Seg Neutrophils % Seg Neuts % (Manual) Lymphocytes % (Manual) Monocytes % (Manual) Eosinophils % (Manual) Basophils % (Manual) Nucleated RBC % Seg Neutrophils # Seg Neutrophils # Man Lymphocytes # (Manual) Monocytes # (Manual) Eosinophils # (Manual) Basophils # (Manual) PT INR Fibrinogen dRVVT Confirm Interp Factor V Activity POC ABG pH POC ABG pCO2 POC ABG pO2 ABG pO2 ABG HCO3 ABG Base Excess ABG Hemoglobin Oxyhemoglobin Sodium Potassium Chloride Carbon Dioxide 16 L D BUN 62 H Creatinine 1.6 H D Glucose 103 H POC Glucose 135 H Lactic Acid Calcium Phosphorus Magnesium Direct Bilirubin AST ALT Alkaline Phosphatase Lactate Dehydrogenase Troponin T C-Reactive Protein Total Protein Albumin Prealbumin Triglycerides Cholesterol LDL Cholesterol Direct HDL Cholesterol Urine pH Urine WBC (Auto) Urine Creatinine Urine Total Protein Fluid Total Protein Vancomycin Trough Rheumatoid Factor Complement C4 Miscellaneous Test Crossmatch 01/08/17 01/08/17 01/08/17 05:25 10:37 10:37 WBC RBC Hgb Hct MCV MCH MCHC RDW Plt Count Lymph % (Auto) [place] % (Auto) Lymph # [place] # Baso # Seg Neutrophils % Seg Neuts % (Manual) Lymphocytes % (Manual) Monocytes % (Manual) Eosinophils % (Manual) Basophils % (Manual) Nucleated RBC % Seg Neutrophils # Seg Neutrophils # Man Lymphocytes # (Manual) Monocytes # (Manual) Eosinophils # (Manual) Basophils # (Manual) PT INR Fibrinogen dRVVT Confirm Interp Factor V Activity POC ABG pH POC ABG pCO2 POC ABG pO2 ABG pO2 ABG HCO3 ABG Base Excess ABG Hemoglobin Oxyhemoglobin Sodium Potassium Chloride Carbon Dioxide BUN Creatinine Glucose POC Glucose 106 H Lactic Acid Calcium Phosphorus Magnesium Direct Bilirubin AST ALT Alkaline Phosphatase Lactate Dehydrogenase Troponin T C-Reactive Protein 24.40 H Total Protein Albumin Prealbumin Triglycerides Cholesterol LDL Cholesterol Direct HDL Cholesterol Urine pH Urine WBC (Auto) Urine Creatinine Urine Total Protein Fluid Total Protein Vancomycin Trough Rheumatoid Factor Complement C4 Miscellaneous Test Crossmatch See Detail 01/08/17 01/08/17 01/08/17 10:37 11:33 15:15 WBC RBC Hgb Hct MCV MCH MCHC RDW Plt Count Lymph % (Auto) [place] % (Auto) Lymph # [place] # Baso # Seg Neutrophils % Seg Neuts % (Manual) Lymphocytes % (Manual) Monocytes % (Manual) Eosinophils % (Manual) Basophils % (Manual) Nucleated RBC % Seg Neutrophils # Seg Neutrophils # Man Lymphocytes # (Manual) Monocytes # (Manual) Eosinophils # (Manual) Basophils # (Manual) PT INR Fibrinogen dRVVT Confirm Interp Factor V Activity POC ABG pH POC ABG pCO2 POC ABG pO2 ABG pO2 ABG HCO3 ABG Base Excess ABG Hemoglobin Oxyhemoglobin Sodium Potassium Chloride Carbon Dioxide BUN Creatinine Glucose POC Glucose 157 H Lactic Acid 9.70 H* 9.10 H* Calcium Phosphorus Magnesium Direct Bilirubin AST ALT Alkaline Phosphatase Lactate Dehydrogenase Troponin T C-Reactive Protein Total Protein Albumin Prealbumin Triglycerides Cholesterol LDL Cholesterol Direct HDL Cholesterol Urine pH Urine WBC (Auto) Urine Creatinine Urine Total Protein Fluid Total Protein Vancomycin Trough Rheumatoid Factor Complement C4 Miscellaneous Test Crossmatch 01/08/17 01/08/17 01/09/17 17:19 23:12 04:40 WBC RBC Hgb Hct MCV MCH MCHC RDW Plt Count Lymph % (Auto) [place] % (Auto) Lymph # [place] # Baso # Seg Neutrophils % Seg Neuts % (Manual) Lymphocytes % (Manual) Monocytes % (Manual) Eosinophils % (Manual) Basophils % (Manual) Nucleated RBC % Seg Neutrophils # Seg Neutrophils # Man Lymphocytes # (Manual) Monocytes # (Manual) Eosinophils # (Manual) Basophils # (Manual) PT INR Fibrinogen dRVVT Confirm Interp Factor V Activity POC ABG pH POC ABG pCO2 POC ABG pO2 ABG pO2 ABG HCO3 ABG Base Excess ABG Hemoglobin Oxyhemoglobin Sodium 147 H Potassium Chloride Carbon Dioxide BUN 82 H Creatinine 1.8 H Glucose 137 H POC Glucose 164 H 157 H Lactic Acid Calcium Phosphorus Magnesium Direct Bilirubin AST ALT Alkaline Phosphatase Lactate Dehydrogenase Troponin T C-Reactive Protein Total Protein Albumin Prealbumin Triglycerides Cholesterol LDL Cholesterol Direct HDL Cholesterol Urine pH Urine WBC (Auto) Urine Creatinine Urine Total Protein Fluid Total Protein Vancomycin Trough Rheumatoid Factor Complement C4 Miscellaneous Test Crossmatch 01/09/17 01/09/17 01/09/17 05:42 08:22 10:57 WBC RBC Hgb Hct MCV MCH MCHC RDW Plt Count Lymph % (Auto) [place] % (Auto) Lymph # [place] # Baso # Seg Neutrophils % Seg Neuts % (Manual) Lymphocytes % (Manual) Monocytes % (Manual) Eosinophils % (Manual) Basophils % (Manual) Nucleated RBC % Seg Neutrophils # Seg Neutrophils # Man Lymphocytes # (Manual) Monocytes # (Manual) Eosinophils # (Manual) Basophils # (Manual) PT INR Fibrinogen dRVVT Confirm Interp Factor V Activity POC ABG pH POC ABG pCO2 POC ABG pO2 ABG pO2 ABG HCO3 ABG Base Excess ABG Hemoglobin Oxyhemoglobin Sodium Potassium Chloride Carbon Dioxide BUN Creatinine Glucose POC Glucose 156 H 122 H Lactic Acid 2.30 H* Calcium Phosphorus Magnesium Direct Bilirubin AST ALT Alkaline Phosphatase Lactate Dehydrogenase Troponin T C-Reactive Protein Total Protein Albumin Prealbumin Triglycerides Cholesterol LDL Cholesterol Direct HDL Cholesterol Urine pH Urine WBC (Auto) Urine Creatinine Urine Total Protein Fluid Total Protein Vancomycin Trough Rheumatoid Factor Complement C4 Miscellaneous Test Crossmatch 01/09/17 01/09/17 01/09/17 13:30 17:14 18:45 WBC RBC Hgb Hct MCV MCH MCHC RDW Plt Count Lymph % (Auto) [place] % (Auto) Lymph # [place] # Baso # Seg Neutrophils % Seg Neuts % (Manual) Lymphocytes % (Manual) Monocytes % (Manual) Eosinophils % (Manual) Basophils % (Manual) Nucleated RBC % Seg Neutrophils # Seg Neutrophils # Man Lymphocytes # (Manual) Monocytes # (Manual) Eosinophils # (Manual) Basophils # (Manual) PT INR Fibrinogen dRVVT Confirm Interp Factor V Activity POC ABG pH POC ABG pCO2 POC ABG pO2 ABG pO2 ABG HCO3 ABG Base Excess ABG Hemoglobin Oxyhemoglobin Sodium Potassium Chloride Carbon Dioxide BUN Creatinine Glucose POC Glucose 127 H Lactic Acid Calcium Phosphorus Magnesium Direct Bilirubin AST ALT Alkaline Phosphatase Lactate Dehydrogenase Troponin T C-Reactive Protein 24.70 H Total Protein Albumin Prealbumin Triglycerides Cholesterol LDL Cholesterol Direct HDL Cholesterol Urine pH Urine WBC (Auto) Urine Creatinine Urine Total Protein Fluid Total Protein Vancomycin Trough Rheumatoid Factor Complement C4 Miscellaneous Test Flexitest 1 H Crossmatch 01/10/17 01/10/17 01/10/17 01:21 04:00 04:00 WBC 18.1 H RBC 3.22 L Hgb 8.8 L Hct 27.0 L D MCV MCH 27 L MCHC RDW 17.0 H Plt Count Lymph % (Auto) [place] % (Auto) Lymph # [place] # Baso # Seg Neutrophils % Seg Neuts % (Manual) Lymphocytes % (Manual) Monocytes % (Manual) Eosinophils % (Manual) Basophils % (Manual) Nucleated RBC % Seg Neutrophils # Seg Neutrophils # Man Lymphocytes # (Manual) Monocytes # (Manual) Eosinophils # (Manual) Basophils # (Manual) PT INR Fibrinogen dRVVT Confirm Interp Factor V Activity POC ABG pH POC ABG pCO2 POC ABG pO2 ABG pO2 ABG HCO3 ABG Base Excess ABG Hemoglobin Oxyhemoglobin Sodium Potassium Chloride Carbon Dioxide BUN 59 H Creatinine 1.3 H Glucose 122 H POC Glucose 160 H Lactic Acid Calcium Phosphorus Magnesium Direct Bilirubin AST ALT Alkaline Phosphatase Lactate Dehydrogenase Troponin T C-Reactive Protein Total Protein Albumin Prealbumin Triglycerides Cholesterol LDL Cholesterol Direct HDL Cholesterol Urine pH Urine WBC (Auto) Urine Creatinine Urine Total Protein Fluid Total Protein Vancomycin Trough Rheumatoid Factor Complement C4 Miscellaneous Test Crossmatch 01/10/17 01/10/17 01/10/17 05:36 12:14 17:55 WBC RBC Hgb Hct MCV MCH MCHC RDW Plt Count Lymph % (Auto) [place] % (Auto) Lymph # [place] # Baso # Seg Neutrophils % Seg Neuts % (Manual) Lymphocytes % (Manual) Monocytes % (Manual) Eosinophils % (Manual) Basophils % (Manual) Nucleated RBC % Seg Neutrophils # Seg Neutrophils # Man Lymphocytes # (Manual) Monocytes # (Manual) Eosinophils # (Manual) Basophils # (Manual) PT INR Fibrinogen dRVVT Confirm Interp Factor V Activity POC ABG pH POC ABG pCO2 POC ABG pO2 ABG pO2 ABG HCO3 ABG Base Excess ABG Hemoglobin Oxyhemoglobin Sodium Potassium Chloride Carbon Dioxide BUN Creatinine Glucose POC Glucose 163 H 120 H 144 H Lactic Acid Calcium Phosphorus Magnesium Direct Bilirubin AST ALT Alkaline Phosphatase Lactate Dehydrogenase Troponin T C-Reactive Protein Total Protein Albumin Prealbumin Triglycerides Cholesterol LDL Cholesterol Direct HDL Cholesterol Urine pH Urine WBC (Auto) Urine Creatinine Urine Total Protein Fluid Total Protein Vancomycin Trough Rheumatoid Factor Complement C4 Miscellaneous Test Crossmatch 01/11/17 01/11/17 01/11/17 00:09 04:00 04:00 WBC 15.8 H RBC 3.04 L Hgb 8.2 L Hct 25.5 L MCV MCH 27 L MCHC RDW 17.3 H Plt Count Lymph % (Auto) [place] % (Auto) Lymph # [place] # Baso # Seg Neutrophils % Seg Neuts % (Manual) Lymphocytes % (Manual) Monocytes % (Manual) Eosinophils % (Manual) Basophils % (Manual) Nucleated RBC % Seg Neutrophils # Seg Neutrophils # Man Lymphocytes # (Manual) Monocytes # (Manual) Eosinophils # (Manual) Basophils # (Manual) PT INR Fibrinogen dRVVT Confirm Interp Factor V Activity POC ABG pH POC ABG pCO2 POC ABG pO2 ABG pO2 ABG HCO3 ABG Base Excess ABG Hemoglobin Oxyhemoglobin Sodium Potassium Chloride Carbon Dioxide BUN 78 H Creatinine 1.6 H Glucose 109 H POC Glucose 122 H Lactic Acid Calcium Phosphorus Magnesium Direct Bilirubin AST ALT Alkaline Phosphatase Lactate Dehydrogenase Troponin T C-Reactive Protein Total Protein Albumin Prealbumin Triglycerides Cholesterol LDL Cholesterol Direct HDL Cholesterol Urine pH Urine WBC (Auto) Urine Creatinine Urine Total Protein Fluid Total Protein Vancomycin Trough Rheumatoid Factor Complement C4 Miscellaneous Test Crossmatch 01/11/17 01/11/17 01/11/17 12:46 18:23 23:42 WBC RBC Hgb Hct MCV MCH MCHC RDW Plt Count Lymph % (Auto) [place] % (Auto) Lymph # [place] # Baso # Seg Neutrophils % Seg Neuts % (Manual) Lymphocytes % (Manual) Monocytes % (Manual) Eosinophils % (Manual) Basophils % (Manual) Nucleated RBC % Seg Neutrophils # Seg Neutrophils # Man Lymphocytes # (Manual) Monocytes # (Manual) Eosinophils # (Manual) Basophils # (Manual) PT INR Fibrinogen dRVVT Confirm Interp Factor V Activity POC ABG pH POC ABG pCO2 POC ABG pO2 ABG pO2 ABG HCO3 ABG Base Excess ABG Hemoglobin Oxyhemoglobin Sodium Potassium Chloride Carbon Dioxide BUN Creatinine Glucose POC Glucose 148 H 125 H 124 H Lactic Acid Calcium Phosphorus Magnesium Direct Bilirubin AST ALT Alkaline Phosphatase Lactate Dehydrogenase Troponin T C-Reactive Protein Total Protein Albumin Prealbumin Triglycerides Cholesterol LDL Cholesterol Direct HDL Cholesterol Urine pH Urine WBC (Auto) Urine Creatinine Urine Total Protein Fluid Total Protein Vancomycin Trough Rheumatoid Factor Complement C4 Miscellaneous Test Crossmatch 01/12/17 01/12/17 01/12/17 04:30 04:30 05:47 WBC 15.8 H RBC 3.31 L Hgb 8.9 L Hct 27.9 L MCV MCH 27 L MCHC RDW 17.4 H Plt Count Lymph % (Auto) [place] % (Auto) Lymph # [place] # Baso # Seg Neutrophils % Seg Neuts % (Manual) Lymphocytes % (Manual) Monocytes % (Manual) Eosinophils % (Manual) Basophils % (Manual) Nucleated RBC % Seg Neutrophils # Seg Neutrophils # Man Lymphocytes # (Manual) Monocytes # (Manual) Eosinophils # (Manual) Basophils # (Manual) PT INR Fibrinogen dRVVT Confirm Interp Factor V Activity POC ABG pH POC ABG pCO2 POC ABG pO2 ABG pO2 ABG HCO3 ABG Base Excess ABG Hemoglobin Oxyhemoglobin Sodium Potassium Chloride Carbon Dioxide BUN 57 H Creatinine Glucose 121 H POC Glucose 110 H Lactic Acid Calcium Phosphorus 2.10 L Magnesium Direct Bilirubin AST ALT Alkaline Phosphatase Lactate Dehydrogenase Troponin T C-Reactive Protein Total Protein Albumin Prealbumin Triglycerides Cholesterol LDL Cholesterol Direct HDL Cholesterol Urine pH Urine WBC (Auto) Urine Creatinine Urine Total Protein Fluid Total Protein Vancomycin Trough Rheumatoid Factor Complement C4 Miscellaneous Test Crossmatch 01/12/17 01/12/17 01/12/17 11:35 17:45 23:14 WBC RBC Hgb Hct MCV MCH MCHC RDW Plt Count Lymph % (Auto) [place] % (Auto) Lymph # [place] # Baso # Seg Neutrophils % Seg Neuts % (Manual) Lymphocytes % (Manual) Monocytes % (Manual) Eosinophils % (Manual) Basophils % (Manual) Nucleated RBC % Seg Neutrophils # Seg Neutrophils # Man Lymphocytes # (Manual) Monocytes # (Manual) Eosinophils # (Manual) Basophils # (Manual) PT INR Fibrinogen dRVVT Confirm Interp Factor V Activity POC ABG pH POC ABG pCO2 POC ABG pO2 ABG pO2 ABG HCO3 ABG Base Excess ABG Hemoglobin Oxyhemoglobin Sodium Potassium Chloride Carbon Dioxide BUN Creatinine Glucose POC Glucose 146 H 117 H 123 H Lactic Acid Calcium Phosphorus Magnesium Direct Bilirubin AST ALT Alkaline Phosphatase Lactate Dehydrogenase Troponin T C-Reactive Protein Total Protein Albumin Prealbumin Triglycerides Cholesterol LDL Cholesterol Direct HDL Cholesterol Urine pH Urine WBC (Auto) Urine Creatinine Urine Total Protein Fluid Total Protein Vancomycin Trough Rheumatoid Factor Complement C4 Miscellaneous Test Crossmatch 01/13/17 01/13/17 01/13/17 05:32 06:00 12:17 WBC RBC Hgb Hct MCV MCH MCHC RDW Plt Count Lymph % (Auto) [place] % (Auto) Lymph # [place] # Baso # Seg Neutrophils % Seg Neuts % (Manual) Lymphocytes % (Manual) Monocytes % (Manual) Eosinophils % (Manual) Basophils % (Manual) Nucleated RBC % Seg Neutrophils # Seg Neutrophils # Man Lymphocytes # (Manual) Monocytes # (Manual) Eosinophils # (Manual) Basophils # (Manual) PT INR Fibrinogen dRVVT Confirm Interp Factor V Activity POC ABG pH POC ABG pCO2 POC ABG pO2 ABG pO2 ABG HCO3 ABG Base Excess ABG Hemoglobin Oxyhemoglobin Sodium Potassium Chloride Carbon Dioxide BUN 80 H Creatinine 1.4 H Glucose 106 H POC Glucose 106 H 168 H Lactic Acid Calcium Phosphorus Magnesium Direct Bilirubin AST ALT Alkaline Phosphatase Lactate Dehydrogenase Troponin T C-Reactive Protein Total Protein Albumin Prealbumin Triglycerides Cholesterol LDL Cholesterol Direct HDL Cholesterol Urine pH Urine WBC (Auto) Urine Creatinine Urine Total Protein Fluid Total Protein Vancomycin Trough Rheumatoid Factor Complement C4 Miscellaneous Test Crossmatch 01/13/17 01/13/17 01/13/17 15:50 17:30 23:42 WBC RBC Hgb Hct MCV MCH MCHC RDW Plt Count Lymph % (Auto) [place] % (Auto) Lymph # [place] # Baso # Seg Neutrophils % Seg Neuts % (Manual) Lymphocytes % (Manual) Monocytes % (Manual) Eosinophils % (Manual) Basophils % (Manual) Nucleated RBC % Seg Neutrophils # Seg Neutrophils # Man Lymphocytes # (Manual) Monocytes # (Manual) Eosinophils # (Manual) Basophils # (Manual) PT 15.4 H INR 1.16 H Fibrinogen dRVVT Confirm Interp Factor V Activity POC ABG pH POC ABG pCO2 POC ABG pO2 ABG pO2 ABG HCO3 ABG Base Excess ABG Hemoglobin Oxyhemoglobin Sodium Potassium Chloride Carbon Dioxide BUN Creatinine Glucose POC Glucose 110 H 155 H Lactic Acid Calcium Phosphorus Magnesium Direct Bilirubin AST ALT Alkaline Phosphatase Lactate Dehydrogenase Troponin T C-Reactive Protein Total Protein Albumin Prealbumin Triglycerides Cholesterol LDL Cholesterol Direct HDL Cholesterol Urine pH Urine WBC (Auto) Urine Creatinine Urine Total Protein Fluid Total Protein Vancomycin Trough Rheumatoid Factor Complement C4 Miscellaneous Test Crossmatch 01/14/17 01/14/17 01/14/17 05:24 05:30 12:48 WBC RBC Hgb Hct MCV MCH MCHC RDW Plt Count Lymph % (Auto) [place] % (Auto) Lymph # [place] # Baso # Seg Neutrophils % Seg Neuts % (Manual) Lymphocytes % (Manual) Monocytes % (Manual) Eosinophils % (Manual) Basophils % (Manual) Nucleated RBC % Seg Neutrophils # Seg Neutrophils # Man Lymphocytes # (Manual) Monocytes # (Manual) Eosinophils # (Manual) Basophils # (Manual) PT INR Fibrinogen dRVVT Confirm Interp Factor V Activity POC ABG pH POC ABG pCO2 POC ABG pO2 ABG pO2 ABG HCO3 ABG Base Excess ABG Hemoglobin Oxyhemoglobin Sodium Potassium Chloride Carbon Dioxide BUN 58 H Creatinine Glucose 114 H POC Glucose 121 H 130 H Lactic Acid Calcium Phosphorus Magnesium Direct Bilirubin AST ALT Alkaline Phosphatase Lactate Dehydrogenase Troponin T C-Reactive Protein Total Protein Albumin Prealbumin Triglycerides Cholesterol LDL Cholesterol Direct HDL Cholesterol Urine pH Urine WBC (Auto) Urine Creatinine Urine Total Protein Fluid Total Protein Vancomycin Trough Rheumatoid Factor Complement C4 Miscellaneous Test Crossmatch 01/14/17 01/15/17 01/15/17 17:36 00:15 05:01 WBC RBC Hgb Hct MCV MCH MCHC RDW Plt Count Lymph % (Auto) [place] % (Auto) Lymph # [place] # Baso # Seg Neutrophils % Seg Neuts % (Manual) Lymphocytes % (Manual) Monocytes % (Manual) Eosinophils % (Manual) Basophils % (Manual) Nucleated RBC % Seg Neutrophils # Seg Neutrophils # Man Lymphocytes # (Manual) Monocytes # (Manual) Eosinophils # (Manual) Basophils # (Manual) PT INR Fibrinogen dRVVT Confirm Interp Factor V Activity POC ABG pH POC ABG pCO2 POC ABG pO2 ABG pO2 ABG HCO3 ABG Base Excess ABG Hemoglobin Oxyhemoglobin Sodium Potassium Chloride Carbon Dioxide BUN Creatinine Glucose POC Glucose 135 H 132 H 126 H Lactic Acid Calcium Phosphorus Magnesium Direct Bilirubin AST ALT Alkaline Phosphatase Lactate Dehydrogenase Troponin T C-Reactive Protein Total Protein Albumin Prealbumin Triglycerides Cholesterol LDL Cholesterol Direct HDL Cholesterol Urine pH Urine WBC (Auto) Urine Creatinine Urine Total Protein Fluid Total Protein Vancomycin Trough Rheumatoid Factor Complement C4 Miscellaneous Test Crossmatch 01/15/17 01/15/17 01/15/17 11:55 12:45 12:45 WBC 16.2 H RBC 3.00 L Hgb 8.1 L Hct 25.4 L MCV MCH 27 L MCHC RDW 17.6 H Plt Count Lymph % (Auto) 11.7 L [place] % (Auto) 7.8 H Lymph # [place] # 1.3 H Baso # Seg Neutrophils % 80.1 H Seg Neuts % (Manual) Lymphocytes % (Manual) Monocytes % (Manual) Eosinophils % (Manual) Basophils % (Manual) Nucleated RBC % Seg Neutrophils # 13.0 H Seg Neutrophils # Man Lymphocytes # (Manual) Monocytes # (Manual) Eosinophils # (Manual) Basophils # (Manual) PT INR Fibrinogen dRVVT Confirm Interp Factor V Activity POC ABG pH POC ABG pCO2 POC ABG pO2 ABG pO2 ABG HCO3 ABG Base Excess ABG Hemoglobin Oxyhemoglobin Sodium 136 L Potassium Chloride Carbon Dioxide BUN 87 H Creatinine 1.7 H Glucose 108 H POC Glucose 125 H Lactic Acid Calcium Phosphorus Magnesium Direct Bilirubin AST ALT Alkaline Phosphatase Lactate Dehydrogenase Troponin T C-Reactive Protein Total Protein Albumin Prealbumin Triglycerides Cholesterol LDL Cholesterol Direct HDL Cholesterol Urine pH Urine WBC (Auto) Urine Creatinine Urine Total Protein Fluid Total Protein Vancomycin Trough Rheumatoid Factor Complement C4 Miscellaneous Test Crossmatch 01/15/17 01/15/17 01/16/17 17:31 23:39 05:23 WBC RBC Hgb Hct MCV MCH MCHC RDW Plt Count Lymph % (Auto) [place] % (Auto) Lymph # [place] # Baso # Seg Neutrophils % Seg Neuts % (Manual) Lymphocytes % (Manual) Monocytes % (Manual) Eosinophils % (Manual) Basophils % (Manual) Nucleated RBC % Seg Neutrophils # Seg Neutrophils # Man Lymphocytes # (Manual) Monocytes # (Manual) Eosinophils # (Manual) Basophils # (Manual) PT INR Fibrinogen dRVVT Confirm Interp Factor V Activity POC ABG pH POC ABG pCO2 POC ABG pO2 ABG pO2 ABG HCO3 ABG Base Excess ABG Hemoglobin Oxyhemoglobin Sodium Potassium Chloride Carbon Dioxide BUN Creatinine Glucose POC Glucose 129 H 112 H 118 H Lactic Acid Calcium Phosphorus Magnesium Direct Bilirubin AST ALT Alkaline Phosphatase Lactate Dehydrogenase Troponin T C-Reactive Protein Total Protein Albumin Prealbumin Triglycerides Cholesterol LDL Cholesterol Direct HDL Cholesterol Urine pH Urine WBC (Auto) Urine Creatinine Urine Total Protein Fluid Total Protein Vancomycin Trough Rheumatoid Factor Complement C4 Miscellaneous Test Crossmatch 01/16/17 01/16/17 01/16/17 11:42 12:32 17:52 WBC RBC Hgb Hct MCV MCH MCHC RDW Plt Count Lymph % (Auto) [place] % (Auto) Lymph # [place] # Baso # Seg Neutrophils % Seg Neuts % (Manual) Lymphocytes % (Manual) Monocytes % (Manual) Eosinophils % (Manual) Basophils % (Manual) Nucleated RBC % Seg Neutrophils # Seg Neutrophils # Man Lymphocytes # (Manual) Monocytes # (Manual) Eosinophils # (Manual) Basophils # (Manual) PT INR Fibrinogen dRVVT Confirm Interp Factor V Activity POC ABG pH 7.499 H POC ABG pCO2 30.9 L POC ABG pO2 51 L ABG pO2 ABG HCO3 ABG Base Excess ABG Hemoglobin Oxyhemoglobin Sodium Potassium Chloride Carbon Dioxide BUN Creatinine Glucose POC Glucose 133 H 130 H Lactic Acid Calcium Phosphorus Magnesium Direct Bilirubin AST ALT Alkaline Phosphatase Lactate Dehydrogenase Troponin T C-Reactive Protein Total Protein Albumin Prealbumin Triglycerides Cholesterol LDL Cholesterol Direct HDL Cholesterol Urine pH Urine WBC (Auto) Urine Creatinine Urine Total Protein Fluid Total Protein Vancomycin Trough Rheumatoid Factor Complement C4 Miscellaneous Test Crossmatch 01/16/17 01/16/17 01/17/17 23:57 Unknown 05:30 WBC RBC Hgb Hct MCV MCH MCHC RDW Plt Count Lymph % (Auto) [place] % (Auto) Lymph # [place] # Baso # Seg Neutrophils % Seg Neuts % (Manual) Lymphocytes % (Manual) Monocytes % (Manual) Eosinophils % (Manual) Basophils % (Manual) Nucleated RBC % Seg Neutrophils # Seg Neutrophils # Man Lymphocytes # (Manual) Monocytes # (Manual) Eosinophils # (Manual) Basophils # (Manual) PT INR Fibrinogen dRVVT Confirm Interp Factor V Activity POC ABG pH POC ABG pCO2 POC ABG pO2 ABG pO2 ABG HCO3 ABG Base Excess ABG Hemoglobin Oxyhemoglobin Sodium 135 L 134 L Potassium Chloride 95.8 L Carbon Dioxide BUN 101 H 66 H Creatinine 1.8 H 1.3 H Glucose 117 H 138 H POC Glucose 143 H Lactic Acid Calcium Phosphorus 5.80 H Magnesium Direct Bilirubin AST ALT Alkaline Phosphatase 254 H Lactate Dehydrogenase Troponin T C-Reactive Protein Total Protein Albumin 1.3 L Prealbumin Triglycerides Cholesterol LDL Cholesterol Direct HDL Cholesterol Urine pH Urine WBC (Auto) Urine Creatinine Urine Total Protein Fluid Total Protein Vancomycin Trough Rheumatoid Factor Complement C4 Miscellaneous Test Crossmatch 01/17/17 01/17/17 05:46 11:49 WBC RBC Hgb Hct MCV MCH MCHC RDW Plt Count Lymph % (Auto) [place] % (Auto) Lymph # [place] # Baso # Seg Neutrophils % Seg Neuts % (Manual) Lymphocytes % (Manual) Monocytes % (Manual) Eosinophils % (Manual) Basophils % (Manual) Nucleated RBC % Seg Neutrophils # Seg Neutrophils # Man Lymphocytes # (Manual) Monocytes # (Manual) Eosinophils # (Manual) Basophils # (Manual) PT INR Fibrinogen dRVVT Confirm Interp Factor V Activity POC ABG pH POC ABG pCO2 POC ABG pO2 ABG pO2 ABG HCO3 ABG Base Excess ABG Hemoglobin Oxyhemoglobin Sodium Potassium Chloride Carbon Dioxide BUN Creatinine Glucose POC Glucose 147 H 124 H Lactic Acid Calcium Phosphorus Magnesium Direct Bilirubin AST ALT Alkaline Phosphatase Lactate Dehydrogenase Troponin T C-Reactive Protein Total Protein Albumin Prealbumin Triglycerides Cholesterol LDL Cholesterol Direct HDL Cholesterol Urine pH Urine WBC (Auto) Urine Creatinine Urine Total Protein Fluid Total Protein Vancomycin Trough Rheumatoid Factor Complement C4 Miscellaneous Test Crossmatch Allied health notes reviewed: RT (not tolerating weaning. Has been on hold as she has been vomiting)
--- NOTE | 2017-01-17 17:15 | Progress Note ---
Assessment and Plan Assessment and plan: Patient is 46-year-old woman with a history of hypertension, diabetes, asthma, hyperlipidemia, chronic kidney disease and anxiety , who was brought in by family because, she couldn't get her words out, her face was also twisted, she was admitted for acute CVA and accelerated hypertension, she had a hx of poor adherence with her medications, and uncontrolled htn. Patient's SBP on admission was noted be greater than 260. TPA was started but this was discontinued after 5 minutes because her blood pressure became uncontrolled. The TPA was not initiated again because the patient was outside the TPA window. Ethics consult placed Patient now on recurrent anemia requiring 2 units packed red blood cell Severe Leukocytosis. Will start meropenem and also consult ID. on the patient has no fever she is also with lactic acidosis of 9 which will be repeated. If leukocytosis is not improving should repeat CT abdomen and pelvis to rule out ischemic bowel Status post cardiac arrest , 11/21/16 on Mechanical ventilation >96 hrs - Received CPR and was resuscitated. - Patient is on amiodarone. Fever - resolved - Patient was initially treated with Abx - s/p R thoracentesis on 11/14, 240cc of serous fluid removed, cx of fluid was negative - Stool negative for C. difficile Severe Sepsis with septic shock - Patient has episode of fever and leukocytosis -Recurrent Leukocytosis, with Meropenem restarted, due to continued sacral decubitus. Surgical wound infection/gram-negative sepsis/candidemia/peritonitis - On TPN JUANITA, ESRD - discussed with Dr Wadsworth - on HD - Cr 1.7 today Acute CVA with infarct - Neurology input appreciated - CT shows continued evolution of left MCA infarct with slight mass effect and edema, and there is no hemorrhage - PRINCE showed hyperdynamic with ef of 75%, neither clot nor septal defect seen - MRA Brain shows near complete occlusion of M2 and M3 of the left MCA - Repeat CT scan done on 09/11, shows stable findings - carotid doppler negative - Echo shows preserved systolic function but does show some left ventricular diastolic dysfunction - continue asa and statin Persistent vegetative state - This patient's needs placement at SNF - She was denied for LTACH Acute hypoxic respiratory failure requiring MV >96hrs - Status post tracheostomy, was on T piece Nosocomial acquired aspiration pneumonia/sepsis/UTI - Finished a course of antibiotics Asthma/COPD exacerbation - ON trach, mechanical ventilation >96 hrs Status Post CVA Bilateral pleural effusion, s/p right thoracentesis A. fib with RVR Diabetes type 2. Continue sliding-scale regular insulin and Accu-Cheks. Hyperlipidemia. Continue statin Nutrition - TPN Anemia requiring multiple transfusions/acute blood loss - currently stable - Check AM labs - Will transfuse if it is below 7 Sacral decubitus ulcer - Status post debridement Disposition. Very poor prognosis. Ethics consult has been placed, will await there input. Cannot reach family, multiple calls placed. Nursing staff on the look out for family and will notify physician. The high probability of a clinically significant, sudden or life threatening deterioration of the [neurologic, CV] system(s) required my full and direct attention, intervention and personal management. The aggregate critical care time was [35] minutes. This time is in addition to time spent performing reported procedures but includes the following: [x] Data Review and interpretation [x] Patient assessment and monitoring of vital signs [x] Documentation [x] Medication orders and management History Interval history: patient seen and examined, remains unresponsive on the ventilator. Worsening clinical condition. Hospitalist Physical - Physical exam Narrative exam: GEN: Ill appearing, trach, staring into space, not tracking either NECK: SUPPLE, trach in place, ngt in place CVS: regular currently NORMAL S1S2 LUNGS/CHEST: NORMAL CHEST EXPANSION B, GOOD AIR ENTRY B ABD: SOFT, no grimise on abdominal palpation, ostomy bags in different locations AND STILL DRAINING, GBS, NO REBOUND OR GUARDING, peg tube in place EXT/SKIN: NO SIGNIFICANT EDEMA BUT WITH UNSTAGEABLE SACRAL DECUB, wound vac inplace MSK: +spontaneous non purposeful movement NEURO: on a ventilator and unresponsive despite being off sedation PSY: Comatose, - Constitutional Vitals: Temp Pulse Resp BP Pulse Ox 98.8 F 109 H 18 116/67 100 01/17/17 16:00 01/17/17 17:00 01/17/17 17:00 01/17/17 17:00 01/17/17 17:00 General appearance: Present: no acute distress, well-nourished, obese Results - Labs CBC & Chem 7: 01/15/17 12:45 01/18/17 05:15 Labs: Laboratory Last Values WBC 16.2 K/mm3 (4.5-11.0) H 01/15/17 12:45 RBC 3.00 M/mm3 (3.65-5.03) L 01/15/17 12:45 Hgb 8.1 gm/dl (10.1-14.3) L 01/15/17 12:45 Hct 25.4 % (30.3-42.9) L 01/15/17 12:45 MCV 85 fl (79-97) 01/15/17 12:45 MCH 27 pg (28-32) L 01/15/17 12:45 MCHC 32 % (30-34) 01/15/17 12:45 RDW 17.6 % (13.2-15.2) H 01/15/17 12:45 Plt Count 287 K/mm3 (140-440) 01/15/17 12:45 Lymph % (Auto) 11.7 % (13.4-35.0) L 01/15/17 12:45 [place] % (Auto) 7.8 % (0.0-7.3) H 01/15/17 12:45 Eos % (Auto) 0.1 % (0.0-4.3) 01/15/17 12:45 Baso % (Auto) 0.3 % (0.0-1.8) 01/15/17 12:45 Lymph # 1.9 K/mm3 (1.2-5.4) 01/15/17 12:45 [place] # 1.3 K/mm3 (0.0-0.8) H 01/15/17 12:45 Eos # 0.0 K/mm3 (0.0-0.4) 01/15/17 12:45 Baso # 0.0 K/mm3 (0.0-0.1) 01/15/17 12:45 Add Manual Diff Complete 12/19/16 05:02 Total Counted 100 12/19/16 05:02 Seg Neutrophils % 80.1 % (40.0-70.0) H 01/15/17 12:45 Seg Neuts % (Manual) 64.0 % (40.0-70.0) 12/19/16 05:02 Band Neutrophils % 15.0 % 12/19/16 05:02 Lymphocytes % (Manual) 13.0 % (13.4-35.0) L 12/19/16 05:02 Reactive Lymphs % (Man) 0 % 12/19/16 05:02 Monocytes % (Manual) 7.0 % (0.0-7.3) 12/19/16 05:02 Eosinophils % (Manual) 0 % (0.0-4.3) 12/19/16 05:02 Basophils % (Manual) 1.0 % (0.0-1.8) 12/19/16 05:02 Metamyelocytes % 0 % 12/19/16 05:02 Myelocytes % 0 % 12/19/16 05:02 Promyelocytes % 0 % 12/19/16 05:02 Blast Cells % 0 % 12/19/16 05:02 Nucleated RBC % 1.0 % (0.0-0.9) H 12/19/16 05:02 Seg Neutrophils # 13.0 K/mm3 (1.8-7.7) H 01/15/17 12:45 Seg Neutrophils # Man 12.9 K/mm3 (1.8-7.7) H 12/19/16 05:02 Band Neutrophils # 3.0 K/mm3 12/19/16 05:02 Lymphocytes # (Manual) 2.6 K/mm3 (1.2-5.4) 12/19/16 05:02 Abs React Lymphs (Man) 0.0 K/mm3 12/19/16 05:02 Monocytes # (Manual) 1.4 K/mm3 (0.0-0.8) H 12/19/16 05:02 Eosinophils # (Manual) 0.0 K/mm3 (0.0-0.4) 12/19/16 05:02 Basophils # (Manual) 0.2 K/mm3 (0.0-0.1) H 12/19/16 05:02 Metamyelocytes # 0.0 K/mm3 12/19/16 05:02 Myelocytes # 0.0 K/mm3 12/19/16 05:02 Promyelocytes # 0.0 K/mm3 12/19/16 05:02 Blast Cells # 0.0 K/mm3 12/19/16 05:02 Pathologist Review 09/13/16 04:00 WBC Morphology Not Reportable 12/19/16 05:02 Hypersegmented Neuts Not Reportable 12/19/16 05:02 Hyposegmented Neuts Not Reportable 12/19/16 05:02 Hypogranular Neuts Not Reportable 12/19/16 05:02 Smudge Cells Not Reportable 12/19/16 05:02 Toxic Granulation Not Reportable 12/19/16 05:02 Toxic Vacuolation Not Reportable 12/19/16 05:02 Dohle Bodies Not Reportable 12/19/16 05:02 Pelger-Huet Anomaly Not Reportable 12/19/16 05:02 Jasmina Rods Not Reportable 12/19/16 05:02 Platelet Estimate Consistent w auto 12/19/16 05:02 Clumped Platelets Not Reportable 12/19/16 05:02 Plt Clumps, EDTA Not Reportable 12/19/16 05:02 Large Platelets Not Reportable 12/19/16 05:02 Giant Platelets Not Reportable 12/19/16 05:02 Platelet Satelliting Not Reportable 12/19/16 05:02 Plt Morphology Comment Not Reportable 12/19/16 05:02 RBC Morphology Not Reportable 12/19/16 05:02 Dimorphic RBCs Not Reportable 12/19/16 05:02 Polychromasia Not Reportable 12/19/16 05:02 Hypochromasia Not Reportable 12/19/16 05:02 Poikilocytosis Not Reportable 12/19/16 05:02 Anisocytosis Not Reportable 12/19/16 05:02 Microcytosis Not Reportable 12/19/16 05:02 Macrocytosis Not Reportable 12/19/16 05:02 Spherocytes Not Reportable 12/19/16 05:02 Pappenheimer Bodies Not Reportable 12/19/16 05:02 Sickle Cells Not Reportable 12/19/16 05:02 Target Cells Few 12/19/16 05:02 Tear Drop Cells Not Reportable 12/19/16 05:02 Ovalocytes Not Reportable 12/19/16 05:02 Stomatocytes Rare 12/03/16 04:00 Helmet Cells Not Reportable 12/19/16 05:02 Monet-[place] Bodies Not Reportable 12/19/16 05:02 [place] Rings Not Reportable 12/19/16 05:02 [place] Cells Not Reportable 12/19/16 05:02 Bite Cells Not Reportable 12/19/16 05:02 Crenated Cell Not Reportable 12/19/16 05:02 Elliptocytes Not Reportable 12/19/16 05:02 Acanthocytes (Spur) Not Reportable 12/19/16 05:02 Rouleaux Not Reportable 12/19/16 05:02 Hemoglobin C Crystals Not Reportable 12/19/16 05:02 Schistocytes Not Reportable 12/19/16 05:02 Malaria parasites Not Reportable 12/19/16 05:02 ESR > 140.0 mm/Hr (0-20) 09/08/16 11:48 Jun Bodies Not Reportable 12/19/16 05:02 Hem Pathologist Commnt No 12/19/16 05:02 PT 15.4 Sec. (12.2-14.9) H 01/13/17 15:50 INR 1.16 (0.87-1.13) H 01/13/17 15:50 APTT 33.0 Sec. (24.2-36.6) 10/09/16 03:45 Thrombin Time 16.8 Sec. (15.1-19.6) 09/03/16 00:10 Fibrinogen 750 mg/dl (211-480) H 09/08/16 11:48 Lupus Anticoagulant see below 09/12/16 09:59 LA PTT Baseline See scanned report 09/12/16 09:59 dRVVT Confirm Interp Positive (Negative) H 09/12/16 09:59 dRVVT Screen 50:50 See scanned report 09/12/16 09:59 dRVVT Mix Interpret See scanned report 09/12/16 09:59 Protein C Antigen 122 % (70-140) 09/08/16 15:35 Free Protein S 97 % normal (50-147) 09/08/16 15:35 Total Protein S 109 % (70-140) 09/08/16 15:35 Antithrombin III Ag 100 % (80-120) 09/08/16 15:35 Heparin Anti-Xa, Unfract Negative (Negative) 09/29/16 13:35 Factor V Activity 182 % (65-150) H 09/08/16 15:35 POC ABG pH 7.499 (7.35-7.45) H 01/16/17 12:32 ABG pH 7.450 pH Units (7.350-7.450) 12/05/16 Unknown POC ABG pCO2 30.9 (35-45) L 01/16/17 12:32 ABG pCO2 29.6 mm Hg 12/05/16 Unknown POC ABG pO2 51 (80-105) L 01/16/17 12:32 ABG pO2 75.2 mm Hg (80.0-90.0) L 12/05/16 Unknown POC ABG HCO3 24.0 01/16/17 12:32 ABG HCO3 20.1 mmol/L (20.0-26.0) 12/05/16 Unknown POC ABG Total CO2 25 01/16/17 12:32 POC ABG O2 Sat 89 01/16/17 12:32 ABG O2 Saturation 96.8 % (95.0-99.0) 12/05/16 Unknown ABG O2 Content 9.9 (0.0-44) 12/05/16 Unknown POC ABG Base Excess 1 01/16/17 12:32 ABG Base Excess -3.4 mmol/L (-2.0-3.0) L 12/05/16 Unknown ABG Hemoglobin 7.4 gm/dl (12.0-16.0) L 12/05/16 Unknown ABG Carboxyhemoglobin 1.8 % (0.0-5.0) 12/05/16 Unknown ABG Methemoglobin 0.6 % (0.0-1.5) 12/05/16 Unknown Oxyhemoglobin 94.5 % (95.0-99.0) L 12/05/16 Unknown FiO2 60 % 01/16/17 12:32 Sodium 134 mmol/L (137-145) L 01/17/17 05:30 Potassium 3.8 mmol/L (3.6-5.0) D 01/17/17 05:30 Chloride 95.8 mmol/L (98-107) L 01/17/17 05:30 Carbon Dioxide 23 mmol/L (22-30) 01/17/17 05:30 Anion Gap 19 mmol/L 01/17/17 05:30 BUN 66 mg/dL (7-17) H 01/17/17 05:30 Creatinine 1.3 mg/dL (0.7-1.2) H 01/17/17 05:30 Estimated GFR 54 ml/min 01/17/17 05:30 BUN/Creatinine Ratio 51 % 01/17/17 05:30 Glucose 138 mg/dL (65-100) H 01/17/17 05:30 POC Glucose 124 (70-105) H 01/17/17 11:49 Osmolality 351 Mosm/kg 09/16/16 11:47 Lactic Acid 2.30 mmol/L (0.7-2.0) H* 01/09/17 08:22 Calcium 8.6 mg/dL (8.4-10.2) 01/17/17 05:30 Phosphorus 3.60 mg/dL (2.5-4.5) D 01/17/17 05:30 Magnesium 1.90 mg/dL (1.7-2.3) 01/17/17 05:30 Total Bilirubin 0.40 mg/dL (0.1-1.2) 01/17/17 05:30 Direct Bilirubin 0.3 mg/dL (0-0.2) H 10/10/16 05:00 Indirect Bilirubin 0.1 mg/dL 10/10/16 05:00 AST 26 units/L (5-40) 01/17/17 05:30 ALT 35 units/L (7-56) 01/17/17 05:30 Alkaline Phosphatase 254 units/L (35-129) H 01/17/17 05:30 Ammonia 27.0 umol/L (25-60) 09/07/16 08:37 Lactate Dehydrogenase 170 units/L (91-180) 01/13/17 15:50 Total Creatine Kinase 121 units/L (30-135) 09/29/16 20:12 CK-MB (CK-2) < 1.0 ng/mL (0.0-4.0) 09/29/16 20:12 CK-MB (CK-2) Rel Index 0.8 (0-4) 09/29/16 20:12 Troponin T 0.204 ng/mL (0.00-0.029) H* 09/29/16 20:12 C-Reactive Protein 24.70 mg/dL (0.00-1.30) H 01/09/17 13:30 Total Protein 6.6 g/dL (6.3-8.2) 01/17/17 05:30 Albumin 1.3 g/dL (3.9-5) L 01/17/17 05:30 Albumin/Globulin Ratio 0.2 % 01/17/17 05:30 Prealbumin 0.110 g/L (0.200-0.400) L 12/29/16 05:15 Triglycerides 137 mg/dL (2-149) 09/29/16 20:12 Cholesterol 31 mg/dL (50-199) L 09/29/16 20:12 LDL Cholesterol Direct 4 mg/dL (50-130) L 09/29/16 20:12 HDL Cholesterol 3 mg/dL (40-59) L 09/29/16 20:12 Cholesterol/HDL Ratio 10.33 % 09/29/16 20:12 Angiotensin Convert Enz See scanned report 09/08/16 11:48 Renin 0.99 ng/mL/h (0.25-5.82) 10/07/16 10:56 Aldosterone <1 ng/dL () 10/07/16 10:56 Aldosterone/Renin Dir see below 10/07/16 10:56 Serotonin Release Assay See scanned report 09/29/16 13:35 TSH 1.010 mlU/mL (0.270-4.200) 09/07/16 08:37 HCG, Qual Negative (Negative) 09/03/16 00:10 Urine Color Yellow (Yellow) 11/05/16 13:09 Urine Turbidity Clear (Clear) 11/05/16 13:09 Urine pH 9.0 (5.0-7.0) H 11/05/16 13:09 Ur Specific [place] 1.011 (1.003-1.030) 11/05/16 13:09 Urine Protein 100 mg/dl mg/dL (Negative) 11/05/16 13:09 Urine Glucose (UA) Neg mg/dL (Negative) 11/05/16 13:09 Urine Ketones Neg mg/dL (Negative) 11/05/16 13:09 Urine Blood Neg (Negative) 11/05/16 13:09 Urine Nitrite Neg (Negative) 11/05/16 13:09 Urine Bilirubin Neg (Negative) 11/05/16 13:09 Urine Urobilinogen < 2.0 mg/dL (<2.0) 11/05/16 13:09 Ur Leukocyte Esterase Neg (Negative) 11/05/16 13:09 Urine WBC (Auto) 4.0 /HPF (0.0-6.0) 11/05/16 13:09 Urine RBC (Auto) 1.0 /HPF (0.0-6.0) 11/05/16 13:09 U Epithel Cells (Auto) 1.0 /HPF (0-13.0) 10/07/16 18:30 Urine Bacteria (Auto) 4+ /HPF (Negative) 11/05/16 13:09 Urine WBC Clumps 2+ /HPF 09/07/16 02:47 Hyaline Casts 4 /LPF 09/07/16 02:47 Urine Mucus Few /HPF 10/07/16 18:30 Urine Yeast (Budding) 3+ /HPF 10/07/16 18:30 Urine Eosinophils None seen (None Seen) 09/07/16 16:00 Urine Total Volume 950 11/12/16 10:18 Urine Creatinine 19.7 mg/dL (0.1-20.0) 11/12/16 10:18 Height (in) 65.0 inches 11/12/16 10:18 Weight (lb) 181.0 lbs 11/12/16 10:18 Creatinine Clearance 5 11/12/16 10:18 Urine Sodium 36 mEq/L 09/16/16 19:19 Urine Total Protein 16 mg/dL (5-11.8) H 09/16/16 19:19 Fluid Type Pleural 01/13/17 12:10 Fluid Color Yellow 01/13/17 12:10 Fluid Appearance Hazy 01/13/17 12:10 Fluid WBC 182 /mm3 01/13/17 12:10 Fluid RBC 41 /mm3 01/13/17 12:10 Fluid Seg Neutrophils 85.0 % 01/13/17 12:10 Fluid Lymphocytes 8.0 % 01/13/17 12:10 Fluid Reactive Lymphs 0 % 01/13/17 12:10 Fluid Monocytes 6.0 % 01/13/17 12:10 Fluid Eosinophils 1.0 % 01/13/17 12:10 Fluid Basophils 0 % 01/13/17 12:10 Fluid Total Protein < 3.0 (15.0-45.0) L 11/10/16 14:20 Fluid LDH 123 11/10/16 14:20 Fluid Comment Diff performed 01/13/17 12:10 Vancomycin Trough 2.3 ug/mL (5.0-20.0) L 09/21/16 13:00 Random Vancomycin 16.5 ug/mL (0-40.0) 11/28/16 09:45 Urine Opiates Screen Presumptive negative 09/03/16 15:11 Urine Methadone Screen Presumptive positive 09/03/16 15:11 Ur Barbiturates Screen Presumptive positive 09/03/16 15:11 Ur Phencyclidine Scrn Presumptive negative 09/03/16 15:11 Ur Amphetamines Screen Presumptive negative 09/03/16 15:11 U Benzodiazepines Scrn Presumptive negative 09/03/16 15:11 Urine Cocaine Screen Presumptive negative 09/03/16 15:11 U Marijuana (THC) Screen Presumptive positive 09/03/16 15:11 Drugs of Abuse Note Disclamer 09/03/16 15:11 Rheumatoid Factor 24 IU/ml (0-13) H 09/08/16 11:48 SAHIL Screen Negative (Negative) 09/07/16 09:20 Proteinase 3 (PR3) Ab <1.0 AI (<1.0) 09/07/16 09:20 Myeloperoxidase Ab <1.0 AI (<1.0) 09/07/16 09:20 Sjogren's Antibody <1.0 AI (<1.0) 09/08/16 15:35 Scl-70 Scleroderma Ab <1.0 AI (<1.0) 09/08/16 15:35 Centromere B Antibody <1.0 AI (<1.0) 09/08/16 12:02 Heparin-induced Plt Ab Negative (Negative) 09/29/16 13:35 UF Heparin High Dose 11 % Release 09/29/16 13:35 SUDHIR UFH Low Dose 0.1 6 % Release 09/29/16 13:35 SUDHIR UFH Low Dose 0.5 8 % Release 09/29/16 13:35 Cardiolipid IgG Ab <14 GPL (<=14) 09/12/16 09:59 Cardiolipid IgA Ab <11 APL (<=11) 09/12/16 09:59 Cardiolipid IgM Ab <12 MPL (<=12) 09/12/16 09:59 Complement C3 148 mg/dL (90-180) 09/07/16 09:20 Complement C4 58 mg/dL (16-47) H 09/07/16 09:20 RPR Nonreactive (Nonreactive) 09/08/16 11:48 Hepatitis A IgM Ab Non-reactive (NonReactive) 09/24/16 14:40 Hep Bs Antigen Non-reactive (Negative) 09/24/16 14:40 Hep B Core IgM Ab Non-reactive (NonReactive) 09/24/16 14:40 Hepatitis C Antibody Non-reactive (NonReactive) 09/24/16 14:40 HIV 1&2 Antibody Rapid Non react (Non React) 09/08/16 11:48 HIV P24 Antigen Non react (Non React) 09/08/16 11:48 Miscellaneous Test Flexitest 1 H 01/09/17 18:45 Blood Type A POSITIVE 01/08/17 10:37 Antibody Screen Negative 01/08/17 10:37 DELORIS Antibody Screen Negative 11/24/16 11:20 Crossmatch See Detail 01/08/17 10:37
[2017-01-17] MEDS ORDERED: TPN ADULT IV SCH (20:00)
[2017-01-18] MEDS: LOPRESSOR PO SCH ×4 (00:25→18:40)
[2017-01-18] MEDS: DUONEB *Not for PRN Use IH SCH ×4 (01:55→19:29)
[2017-01-18] MEDS: REGLAN IV SCH ×3 (05:31→21:33)
[2017-01-18] MEDS: HumuLIN R SUB-Q SCH ×4 (05:31→18:53)
[2017-01-18] MEDS: APRESOLINE PO SCH ×3 (05:31→21:34)
[2017-01-18 06:04] LABS: Calcium 8.9 mg/dL (8.4-10.2)
--- NOTE | 2017-01-18 09:41 | Progress Note ---
Assessment and Plan Acute Hypoxemic Respiratory Failure (now with exacerbation and back on MVS) Hypertension (unable to receive p.o. meds) Atrial Fibrillation with RVR s/p tracheostomy Acute encephalopathy s/p CVA Oropharyngeal dysphagia Enterococcal bacteremia sepsis syndrome Sacral Decubitus Ulcer (s/p surgical debridement) Anemia Obesity JUANITA now on hemodialysis Enteric Fistula (discussed with cutter operator tile and will see if extra UF sessions +/- diuretics can assist with pulmonary edema and pleural effusions) - continue to hold tube feeds due to persistent emesis; continue reglan at 5mg IV q6h - will consider right chest tube placement for continuous suction and see if aids weaning - continue fentanyl patch for pain issues especially s/p debridement - continue wound care per WCT and RN's (she is s/p surgical debridement) - continue anti-infectives per ID recs - prn CRP & lactate levels if clinically indicated (Follow WBC also) - keep on with daily PSV trials and / or T-piece as tolerated (was on 03/07 prior to emesis today) - continue TPN administration - continue scopolamine for secretion control - continue to wean FiO2 for sats > 94% - continue bronchodilators and pulmonary toilet - VAP bundle addressed - continue prn IV metorolol - continue metoprolol and amlodipine (hold for hypotension) - continue to follow electrolytes and correct as necessary - continue GI & VTE prophylaxis - Continue flu & pneumovax per protocol - ethics consult placed and pending .....she remains critically ill on life sustaining interventions including MVS and at risk for further deterioration including ....30' CCT today without overlap ....care plan discussed at length during team rounds ...fpc prognosis remains guarded and this has intermittently been conveyed to family Subjective Date of service: 01/18/17 Principal diagnosis: Acute resp failure on MVS; S/P Acute CVA; Acute Encephalopathy; JUANITA Interval history: Patient is seen today for: Acute resp failure on MVS; S/P Acute CVA; Acute Encephalopathy; JUANITA Seen and examined at bedside; 24hour events reviewed; nursing and respiratory care staff consulted; no adverse overnight events reported to me; silvia remains critically ill and is still not tolerating weaning well; remains on MVS ; still not tolerating enteral nutrition and tube feeds stopped; HD/UF ongoing; no new issues otherwise Objective Vital Signs - 12hr 01/17/17 01/17/17 01/17/17 22:00 23:00 23:01 Temperature Pulse Rate 110 H 109 H 109 H Pulse Rate [ Anterior Bilateral Throughout] Respiratory 22 23 23 Rate Respiratory Rate [Anterior Bilateral Throughout] Blood Pressure 97/58 107/62 107/62 O2 Sat by Pulse 99 98 98 Oximetry O2 Sat by Pulse Oximetry [ Anterior Bilateral Throughout] O2 Sat by Pulse Oximetry [ Assessment] 01/17/17 01/18/17 01/18/17 23:50 00:00 00:25 Temperature 98.1 F Pulse Rate 112 H 111 H 107 H Pulse Rate [ Anterior Bilateral Throughout] Respiratory 21 Rate Respiratory Rate [Anterior Bilateral Throughout] Blood Pressure 121/77 103/63 103/63 O2 Sat by Pulse 100 100 Oximetry O2 Sat by Pulse Oximetry [ Anterior Bilateral Throughout] O2 Sat by Pulse Oximetry [ Assessment] 01/18/17 01/18/17 01/18/17 01:00 01:56 02:00 Temperature Pulse Rate 111 H 94 H Pulse Rate [ 107 H Anterior Bilateral Throughout] Respiratory 14 25 H Rate Respiratory 19 Rate [Anterior Bilateral Throughout] Blood Pressure 103/60 117/62 O2 Sat by Pulse 100 96 Oximetry O2 Sat by Pulse Oximetry [ Anterior Bilateral Throughout] O2 Sat by Pulse Oximetry [ Assessment] 01/18/17 01/18/17 01/18/17 02:08 02:11 03:00 Temperature Pulse Rate 110 H Pulse Rate [ 110 H Anterior Bilateral Throughout] Respiratory 24 Rate Respiratory 19 Rate [Anterior Bilateral Throughout] Blood Pressure 111/65 O2 Sat by Pulse 98 Oximetry O2 Sat by Pulse Oximetry [ Anterior Bilateral Throughout] O2 Sat by Pulse 97 Oximetry [ Assessment] 01/18/17 01/18/17 01/18/17 03:52 04:00 04:47 Temperature 98.8 F Pulse Rate 106 H 111 H Pulse Rate [ Anterior Bilateral Throughout] Respiratory 17 Rate Respiratory Rate [Anterior Bilateral Throughout] Blood Pressure 102/51 119/71 O2 Sat by Pulse 99 95 98 Oximetry O2 Sat by Pulse Oximetry [ Anterior Bilateral Throughout] O2 Sat by Pulse Oximetry [ Assessment] 01/18/17 01/18/17 01/18/17 05:00 05:31 06:00 Temperature Pulse Rate 112 H 110 H Pulse Rate [ Anterior Bilateral Throughout] Respiratory 20 16 Rate Respiratory Rate [Anterior Bilateral Throughout] Blood Pressure 125/66 124/70 112/65 O2 Sat by Pulse 98 97 Oximetry O2 Sat by Pulse Oximetry [ Anterior Bilateral Throughout] O2 Sat by Pulse Oximetry [ Assessment] 01/18/17 01/18/17 01/18/17 07:53 07:57 08:00 Temperature 98.6 F Pulse Rate 110 H Pulse Rate [ 114 H Anterior Bilateral Throughout] Respiratory Rate Respiratory 21 Rate [Anterior Bilateral Throughout] Blood Pressure 120/73 O2 Sat by Pulse 98 Oximetry O2 Sat by Pulse Oximetry [ Anterior Bilateral Throughout] O2 Sat by Pulse 98 Oximetry [ Assessment] 01/18/17 01/18/17 01/18/17 08:13 09:10 09:20 Temperature 98.6 F Pulse Rate 119 H 119 H Pulse Rate [ 115 H Anterior Bilateral Throughout] Respiratory 25 H Rate Respiratory 24 Rate [Anterior Bilateral Throughout] Blood Pressure 113/63 113/63 O2 Sat by Pulse Oximetry O2 Sat by Pulse 98 Oximetry [ Anterior Bilateral Throughout] O2 Sat by Pulse Oximetry [ Assessment] 01/18/17 09:30 Temperature Pulse Rate 118 H Pulse Rate [ Anterior Bilateral Throughout] Respiratory Rate Respiratory Rate [Anterior Bilateral Throughout] Blood Pressure 105/62 O2 Sat by Pulse Oximetry O2 Sat by Pulse Oximetry [ Anterior Bilateral Throughout] O2 Sat by Pulse Oximetry [ Assessment] Constitutional: appears uncomfortable, other (not tracking) Eyes: non-icteric, other (tracheostomy tube in midline of neck) ENT: oropharynx moist, oropharyngeal exudate pre Neck: supple, no lymphadenopathy, no JVD, other (no thyromegaly) Effort: mildly labored Ascultation: Bilateral: diminished breath sounds (bases), rhonchi (and referred upper airway sounds) Percussion: Bilateral: not dull, dull (bases) Cardiovascular: regular rate and rhythm, other (no rubs / murmurs) Gastrointestinal: hypoactive bowel sounds, soft, non-tender, non-distended, other (RLQ & LUQ stomas with colostomy bags) Integumentary: decubitus ulcer (sacral; stage 4 s/p surgical debridement), other (no rash; no cellulitis; poor turgor) Extremities: no cyanosis, pulses normal, no ischemia or petechiae, edema (1+ bilaterally) Neurologic: pupils equal and round, unable to assess, other (encephalopathic) Psychiatric: other (unable to assess) CBC and BMP: 01/15/17 12:45 01/18/17 05:15 ABG, PT/INR, D-dimer: ABG POC ABG pH 7.499 (7.35-7.45) H 01/16/17 12:32 ABG pH 7.450 pH Units (7.350-7.450) 12/05/16 Unknown POC ABG pCO2 30.9 (35-45) L 01/16/17 12:32 ABG pCO2 29.6 mm Hg 12/05/16 Unknown POC ABG pO2 51 (80-105) L 01/16/17 12:32 ABG pO2 75.2 mm Hg (80.0-90.0) L 12/05/16 Unknown POC ABG HCO3 24.0 01/16/17 12:32 POC ABG Total CO2 25 01/16/17 12:32 POC ABG O2 Sat 89 01/16/17 12:32 ABG O2 Saturation 96.8 % (95.0-99.0) 12/05/16 Unknown PT/INR, D-dimer PT 15.4 Sec. (12.2-14.9) H 01/13/17 15:50 INR 1.16 (0.87-1.13) H 01/13/17 15:50 Abnormal lab findings: Abnormal Labs 09/03/16 09/03/16 09/03/16 00:03 00:10 00:10 WBC 13.9 H RBC 5.95 H Hgb Hct 44.0 H MCV 74 L MCH 22 L MCHC RDW 17.5 H Plt Count Lymph % (Auto) Barton % (Auto) Lymph # Barton # Baso # Seg Neutrophils % Seg Neuts % (Manual) Lymphocytes % (Manual) 54.0 H Monocytes % (Manual) Eosinophils % (Manual) Basophils % (Manual) Nucleated RBC % Seg Neutrophils # Seg Neutrophils # Man Lymphocytes # (Manual) 7.5 H Monocytes # (Manual) Eosinophils # (Manual) Basophils # (Manual) PT INR Fibrinogen dRVVT Confirm Interp Factor V Activity POC ABG pH POC ABG pCO2 POC ABG pO2 ABG pO2 ABG HCO3 ABG Base Excess ABG Hemoglobin Oxyhemoglobin Sodium Potassium 2.8 L* Chloride Carbon Dioxide 21 L BUN Creatinine 1.7 H Glucose 159 H POC Glucose 177 H Lactic Acid Calcium Phosphorus Magnesium Direct Bilirubin AST ALT Alkaline Phosphatase Lactate Dehydrogenase Troponin T C-Reactive Protein Total Protein Albumin Prealbumin Triglycerides Cholesterol LDL Cholesterol Direct HDL Cholesterol Urine pH Urine WBC (Auto) Urine Creatinine Urine Total Protein Fluid Total Protein Vancomycin Trough Rheumatoid Factor Complement C4 Miscellaneous Test Crossmatch 09/03/16 09/03/16 09/03/16 12:12 15:07 16:20 WBC RBC Hgb Hct MCV MCH MCHC RDW Plt Count Lymph % (Auto) Barton % (Auto) Lymph # Barton # Baso # Seg Neutrophils % Seg Neuts % (Manual) Lymphocytes % (Manual) Monocytes % (Manual) Eosinophils % (Manual) Basophils % (Manual) Nucleated RBC % Seg Neutrophils # Seg Neutrophils # Man Lymphocytes # (Manual) Monocytes # (Manual) Eosinophils # (Manual) Basophils # (Manual) PT INR Fibrinogen dRVVT Confirm Interp Factor V Activity POC ABG pH 7.452 H POC ABG pCO2 POC ABG pO2 ABG pO2 ABG HCO3 ABG Base Excess ABG Hemoglobin Oxyhemoglobin Sodium Potassium Chloride Carbon Dioxide BUN Creatinine Glucose POC Glucose 178 H Lactic Acid Calcium Phosphorus 2.20 L Magnesium 1.60 L Direct Bilirubin AST ALT Alkaline Phosphatase Lactate Dehydrogenase Troponin T C-Reactive Protein Total Protein Albumin Prealbumin Triglycerides Cholesterol LDL Cholesterol Direct HDL Cholesterol Urine pH Urine WBC (Auto) Urine Creatinine Urine Total Protein Fluid Total Protein Vancomycin Trough Rheumatoid Factor Complement C4 Miscellaneous Test Crossmatch 09/03/16 09/03/16 09/03/16 17:57 17:58 23:50 WBC RBC Hgb Hct MCV MCH MCHC RDW Plt Count Lymph % (Auto) Barton % (Auto) Lymph # Barton # Baso # Seg Neutrophils % Seg Neuts % (Manual) Lymphocytes % (Manual) Monocytes % (Manual) Eosinophils % (Manual) Basophils % (Manual) Nucleated RBC % Seg Neutrophils # Seg Neutrophils # Man Lymphocytes # (Manual) Monocytes # (Manual) Eosinophils # (Manual) Basophils # (Manual) PT INR Fibrinogen dRVVT Confirm Interp Factor V Activity POC ABG pH POC ABG pCO2 POC ABG pO2 ABG pO2 ABG HCO3 ABG Base Excess ABG Hemoglobin Oxyhemoglobin Sodium Potassium Chloride Carbon Dioxide BUN Creatinine Glucose POC Glucose 162 H 145 H Lactic Acid Calcium Phosphorus 2.30 L Magnesium Direct Bilirubin AST ALT Alkaline Phosphatase Lactate Dehydrogenase Troponin T C-Reactive Protein Total Protein Albumin Prealbumin Triglycerides Cholesterol LDL Cholesterol Direct HDL Cholesterol Urine pH Urine WBC (Auto) Urine Creatinine Urine Total Protein Fluid Total Protein Vancomycin Trough Rheumatoid Factor Complement C4 Miscellaneous Test Crossmatch 09/04/16 09/04/16 09/04/16 03:31 03:31 05:42 WBC RBC Hgb 9.7 L D Hct MCV 72 L MCH 23 L MCHC RDW 17.5 H Plt Count Lymph % (Auto) 11.1 L Barton % (Auto) Lymph # Barton # Baso # Seg Neutrophils % 84.3 H Seg Neuts % (Manual) Lymphocytes % (Manual) Monocytes % (Manual) Eosinophils % (Manual) Basophils % (Manual) Nucleated RBC % Seg Neutrophils # 8.9 H Seg Neutrophils # Man Lymphocytes # (Manual) Monocytes # (Manual) Eosinophils # (Manual) Basophils # (Manual) PT INR Fibrinogen dRVVT Confirm Interp Factor V Activity POC ABG pH POC ABG pCO2 POC ABG pO2 ABG pO2 ABG HCO3 ABG Base Excess ABG Hemoglobin Oxyhemoglobin Sodium 135 L Potassium 2.9 L* Chloride 97.2 L Carbon Dioxide 19 L BUN Creatinine 1.7 H Glucose 170 H POC Glucose 152 H Lactic Acid Calcium Phosphorus Magnesium Direct Bilirubin AST ALT Alkaline Phosphatase Lactate Dehydrogenase Troponin T C-Reactive Protein Total Protein Albumin Prealbumin Triglycerides 160 H Cholesterol LDL Cholesterol Direct HDL Cholesterol 31 L Urine pH Urine WBC (Auto) Urine Creatinine Urine Total Protein Fluid Total Protein Vancomycin Trough Rheumatoid Factor Complement C4 Miscellaneous Test Crossmatch 09/04/16 09/04/16 09/04/16 11:34 17:46 23:29 WBC RBC Hgb Hct MCV MCH MCHC RDW Plt Count Lymph % (Auto) Barton % (Auto) Lymph # Barton # Baso # Seg Neutrophils % Seg Neuts % (Manual) Lymphocytes % (Manual) Monocytes % (Manual) Eosinophils % (Manual) Basophils % (Manual) Nucleated RBC % Seg Neutrophils # Seg Neutrophils # Man Lymphocytes # (Manual) Monocytes # (Manual) Eosinophils # (Manual) Basophils # (Manual) PT INR Fibrinogen dRVVT Confirm Interp Factor V Activity POC ABG pH POC ABG pCO2 POC ABG pO2 ABG pO2 ABG HCO3 ABG Base Excess ABG Hemoglobin Oxyhemoglobin Sodium Potassium Chloride Carbon Dioxide BUN Creatinine Glucose POC Glucose 165 H 210 H 139 H Lactic Acid Calcium Phosphorus Magnesium Direct Bilirubin AST ALT Alkaline Phosphatase Lactate Dehydrogenase Troponin T C-Reactive Protein Total Protein Albumin Prealbumin Triglycerides Cholesterol LDL Cholesterol Direct HDL Cholesterol Urine pH Urine WBC (Auto) Urine Creatinine Urine Total Protein Fluid Total Protein Vancomycin Trough Rheumatoid Factor Complement C4 Miscellaneous Test Crossmatch 09/05/16 09/05/16 09/05/16 04:05 04:05 05:38 WBC RBC Hgb Hct MCV 76 L D MCH 23 L MCHC RDW 17.8 H Plt Count Lymph % (Auto) Barton % (Auto) Lymph # Barton # Baso # Seg Neutrophils % Seg Neuts % (Manual) Lymphocytes % (Manual) Monocytes % (Manual) Eosinophils % (Manual) Basophils % (Manual) Nucleated RBC % Seg Neutrophils # Seg Neutrophils # Man Lymphocytes # (Manual) Monocytes # (Manual) Eosinophils # (Manual) Basophils # (Manual) PT INR Fibrinogen dRVVT Confirm Interp Factor V Activity POC ABG pH POC ABG pCO2 POC ABG pO2 ABG pO2 ABG HCO3 ABG Base Excess ABG Hemoglobin Oxyhemoglobin Sodium 134 L Potassium Chloride Carbon Dioxide 18 L BUN Creatinine 1.8 H Glucose 192 H POC Glucose 175 H Lactic Acid Calcium Phosphorus Magnesium Direct Bilirubin AST ALT Alkaline Phosphatase Lactate Dehydrogenase Troponin T C-Reactive Protein Total Protein Albumin Prealbumin Triglycerides Cholesterol LDL Cholesterol Direct HDL Cholesterol Urine pH Urine WBC (Auto) Urine Creatinine Urine Total Protein Fluid Total Protein Vancomycin Trough Rheumatoid Factor Complement C4 Miscellaneous Test Crossmatch 09/05/16 09/05/16 09/05/16 11:38 17:48 23:22 WBC RBC Hgb Hct MCV MCH MCHC RDW Plt Count Lymph % (Auto) Barton % (Auto) Lymph # Barton # Baso # Seg Neutrophils % Seg Neuts % (Manual) Lymphocytes % (Manual) Monocytes % (Manual) Eosinophils % (Manual) Basophils % (Manual) Nucleated RBC % Seg Neutrophils # Seg Neutrophils # Man Lymphocytes # (Manual) Monocytes # (Manual) Eosinophils # (Manual) Basophils # (Manual) PT INR Fibrinogen dRVVT Confirm Interp Factor V Activity POC ABG pH POC ABG pCO2 POC ABG pO2 ABG pO2 ABG HCO3 ABG Base Excess ABG Hemoglobin Oxyhemoglobin Sodium Potassium Chloride Carbon Dioxide BUN Creatinine Glucose POC Glucose 164 H 186 H 195 H Lactic Acid Calcium Phosphorus Magnesium Direct Bilirubin AST ALT Alkaline Phosphatase Lactate Dehydrogenase Troponin T C-Reactive Protein Total Protein Albumin Prealbumin Triglycerides Cholesterol LDL Cholesterol Direct HDL Cholesterol Urine pH Urine WBC (Auto) Urine Creatinine Urine Total Protein Fluid Total Protein Vancomycin Trough Rheumatoid Factor Complement C4 Miscellaneous Test Crossmatch 09/06/16 09/06/1609/06/17 04:12 05:59 07:32 WBC RBC Hgb Hct MCV MCH MCHC RDW Plt Count Lymph % (Auto) Barton % (Auto) Lymph # Barton # Baso # Seg Neutrophils % Seg Neuts % (Manual) Lymphocytes % (Manual) Monocytes % (Manual) Eosinophils % (Manual) Basophils % (Manual) Nucleated RBC % Seg Neutrophils # Seg Neutrophils # Man Lymphocytes # (Manual) Monocytes # (Manual) Eosinophils # (Manual) Basophils # (Manual) PT INR Fibrinogen dRVVT Confirm Interp Factor V Activity POC ABG pH 7.514 H POC ABG pCO2 29.1 L POC ABG pO2 72 L ABG pO2 ABG HCO3 ABG Base Excess ABG Hemoglobin Oxyhemoglobin Sodium 133 L Potassium 3.4 L Chloride 94.9 L Carbon Dioxide 19 L BUN 30 H Creatinine 2.1 H Glucose 139 H POC Glucose 146 H Lactic Acid Calcium Phosphorus Magnesium Direct Bilirubin AST ALT Alkaline Phosphatase Lactate Dehydrogenase Troponin T C-Reactive Protein Total Protein Albumin Prealbumin Triglycerides Cholesterol LDL Cholesterol Direct HDL Cholesterol Urine pH Urine WBC (Auto) Urine Creatinine Urine Total Protein Fluid Total Protein Vancomycin Trough Rheumatoid Factor Complement C4 Miscellaneous Test Crossmatch 09/06/16 09/06/16 09/06/16 11:57 17:58 19:02 WBC RBC Hgb Hct MCV MCH MCHC RDW Plt Count Lymph % (Auto) Barton % (Auto) Lymph # Barton # Baso # Seg Neutrophils % Seg Neuts % (Manual) Lymphocytes % (Manual) Monocytes % (Manual) Eosinophils % (Manual) Basophils % (Manual) Nucleated RBC % Seg Neutrophils # Seg Neutrophils # Man Lymphocytes # (Manual) Monocytes # (Manual) Eosinophils # (Manual) Basophils # (Manual) PT INR Fibrinogen dRVVT Confirm Interp Factor V Activity POC ABG pH 7.465 H POC ABG pCO2 32.0 L POC ABG pO2 ABG pO2 ABG HCO3 ABG Base Excess ABG Hemoglobin Oxyhemoglobin Sodium Potassium Chloride Carbon Dioxide BUN Creatinine Glucose POC Glucose 165 H 160 H Lactic Acid Calcium Phosphorus Magnesium Direct Bilirubin AST ALT Alkaline Phosphatase Lactate Dehydrogenase Troponin T C-Reactive Protein Total Protein Albumin Prealbumin Triglycerides Cholesterol LDL Cholesterol Direct HDL Cholesterol Urine pH Urine WBC (Auto) Urine Creatinine Urine Total Protein Fluid Total Protein Vancomycin Trough Rheumatoid Factor Complement C4 Miscellaneous Test Crossmatch 09/06/16 09/07/16 09/07/16 23:45 02:47 02:47 WBC RBC Hgb Hct MCV MCH MCHC RDW Plt Count Lymph % (Auto) Barton % (Auto) Lymph # Barton # Baso # Seg Neutrophils % Seg Neuts % (Manual) Lymphocytes % (Manual) Monocytes % (Manual) Eosinophils % (Manual) Basophils % (Manual) Nucleated RBC % Seg Neutrophils # Seg Neutrophils # Man Lymphocytes # (Manual) Monocytes # (Manual) Eosinophils # (Manual) Basophils # (Manual) PT INR Fibrinogen dRVVT Confirm Interp Factor V Activity POC ABG pH POC ABG pCO2 POC ABG pO2 ABG pO2 ABG HCO3 ABG Base Excess ABG Hemoglobin Oxyhemoglobin Sodium Potassium Chloride Carbon Dioxide BUN Creatinine Glucose POC Glucose 204 H Lactic Acid Calcium Phosphorus Magnesium Direct Bilirubin AST ALT Alkaline Phosphatase Lactate Dehydrogenase Troponin T C-Reactive Protein Total Protein Albumin Prealbumin Triglycerides Cholesterol LDL Cholesterol Direct HDL Cholesterol Urine pH Urine WBC (Auto) 68.0 H Urine Creatinine 106.1 H Urine Total Protein Fluid Total Protein Vancomycin Trough Rheumatoid Factor Complement C4 Miscellaneous Test Crossmatch 09/07/16 09/07/16 09/07/16 04:50 06:19 06:39 WBC RBC Hgb Hct MCV MCH MCHC RDW Plt Count Lymph % (Auto) Barton % (Auto) Lymph # Barton # Baso # Seg Neutrophils % Seg Neuts % (Manual) Lymphocytes % (Manual) Monocytes % (Manual) Eosinophils % (Manual) Basophils % (Manual) Nucleated RBC % Seg Neutrophils # Seg Neutrophils # Man Lymphocytes # (Manual) Monocytes # (Manual) Eosinophils # (Manual) Basophils # (Manual) PT INR Fibrinogen dRVVT Confirm Interp Factor V Activity POC ABG pH 7.457 H POC ABG pCO2 32.1 L POC ABG pO2 76 L ABG pO2 ABG HCO3 ABG Base Excess ABG Hemoglobin Oxyhemoglobin Sodium 132 L Potassium Chloride 94.7 L Carbon Dioxide BUN 53 H Creatinine 2.9 H Glucose 151 H POC Glucose 149 H Lactic Acid Calcium Phosphorus Magnesium Direct Bilirubin AST ALT Alkaline Phosphatase Lactate Dehydrogenase Troponin T C-Reactive Protein Total Protein Albumin Prealbumin Triglycerides Cholesterol LDL Cholesterol Direct HDL Cholesterol Urine pH Urine WBC (Auto) Urine Creatinine Urine Total Protein Fluid Total Protein Vancomycin Trough Rheumatoid Factor Complement C4 Miscellaneous Test Crossmatch 09/07/16 09/07/16 09/07/16 09:20 11:43 11:43 WBC 19.4 H RBC Hgb 8.3 L Hct 26.4 L D MCV 72 L D MCH 22 L MCHC RDW 17.9 H Plt Count Lymph % (Auto) 8.5 L Barton % (Auto) Lymph # Barton # 1.0 H Baso # Seg Neutrophils % 85.8 H Seg Neuts % (Manual) Lymphocytes % (Manual) Monocytes % (Manual) Eosinophils % (Manual) Basophils % (Manual) Nucleated RBC % Seg Neutrophils # 16.6 H Seg Neutrophils # Man Lymphocytes # (Manual) Monocytes # (Manual) Eosinophils # (Manual) Basophils # (Manual) PT INR Fibrinogen dRVVT Confirm Interp Factor V Activity POC ABG pH POC ABG pCO2 POC ABG pO2 ABG pO2 ABG HCO3 ABG Base Excess ABG Hemoglobin Oxyhemoglobin Sodium 134 L Potassium Chloride 97.2 L Carbon Dioxide 20 L BUN 58 H Creatinine 2.9 H Glucose 147 H POC Glucose Lactic Acid Calcium Phosphorus 2.40 L Magnesium 2.40 H Direct Bilirubin AST ALT Alkaline Phosphatase Lactate Dehydrogenase Troponin T C-Reactive Protein Total Protein 5.8 L Albumin 2.2 L Prealbumin Triglycerides Cholesterol LDL Cholesterol Direct HDL Cholesterol Urine pH Urine WBC (Auto) Urine Creatinine Urine Total Protein Fluid Total Protein Vancomycin Trough Rheumatoid Factor Complement C4 58 H Miscellaneous Test Crossmatch 09/07/16 09/07/16 09/07/16 11:50 16:00 17:31 WBC RBC Hgb Hct MCV MCH MCHC RDW Plt Count Lymph % (Auto) Barton % (Auto) Lymph # Barton # Baso # Seg Neutrophils % Seg Neuts % (Manual) Lymphocytes % (Manual) Monocytes % (Manual) Eosinophils % (Manual) Basophils % (Manual) Nucleated RBC % Seg Neutrophils # Seg Neutrophils # Man Lymphocytes # (Manual) Monocytes # (Manual) Eosinophils # (Manual) Basophils # (Manual) PT INR Fibrinogen dRVVT Confirm Interp Factor V Activity POC ABG pH POC ABG pCO2 POC ABG pO2 158 H ABG pO2 ABG HCO3 ABG Base Excess ABG Hemoglobin Oxyhemoglobin Sodium Potassium Chloride Carbon Dioxide BUN Creatinine Glucose POC Glucose 175 H Lactic Acid Calcium Phosphorus Magnesium Direct Bilirubin AST ALT Alkaline Phosphatase Lactate Dehydrogenase Troponin T C-Reactive Protein Total Protein Albumin Prealbumin Triglycerides Cholesterol LDL Cholesterol Direct HDL Cholesterol Urine pH Urine WBC (Auto) Urine Creatinine 66.3 H Urine Total Protein Fluid Total Protein Vancomycin Trough Rheumatoid Factor Complement C4 Miscellaneous Test Crossmatch 09/07/16 09/08/16 09/08/16 23:50 05:46 06:18 WBC 17.8 H RBC 3.58 L Hgb 8.1 L Hct 25.5 L MCV 71 L MCH 23 L MCHC RDW 18.4 H Plt Count Lymph % (Auto) Barton % (Auto) Lymph # Barton # Baso # Seg Neutrophils % Seg Neuts % (Manual) 92.0 H Lymphocytes % (Manual) 6.0 L Monocytes % (Manual) Eosinophils % (Manual) Basophils % (Manual) Nucleated RBC % Seg Neutrophils # Seg Neutrophils # Man 16.4 H Lymphocytes # (Manual) 1.1 L Monocytes # (Manual) Eosinophils # (Manual) Basophils # (Manual) PT INR Fibrinogen dRVVT Confirm Interp Factor V Activity POC ABG pH POC ABG pCO2 34.3 L POC ABG pO2 71 L ABG pO2 ABG HCO3 ABG Base Excess ABG Hemoglobin Oxyhemoglobin Sodium Potassium Chloride Carbon Dioxide BUN Creatinine Glucose POC Glucose 216 H Lactic Acid Calcium Phosphorus Magnesium Direct Bilirubin AST ALT Alkaline Phosphatase Lactate Dehydrogenase Troponin T C-Reactive Protein Total Protein Albumin Prealbumin Triglycerides Cholesterol LDL Cholesterol Direct HDL Cholesterol Urine pH Urine WBC (Auto) Urine Creatinine Urine Total Protein Fluid Total Protein Vancomycin Trough Rheumatoid Factor Complement C4 Miscellaneous Test Crossmatch 09/08/16 09/08/16 09/08/16 06:18 06:51 10:55 WBC RBC Hgb Hct MCV MCH MCHC RDW Plt Count Lymph % (Auto) Barton % (Auto) Lymph # Barton # Baso # Seg Neutrophils % Seg Neuts % (Manual) Lymphocytes % (Manual) Monocytes % (Manual) Eosinophils % (Manual) Basophils % (Manual) Nucleated RBC % Seg Neutrophils # Seg Neutrophils # Man Lymphocytes # (Manual) Monocytes # (Manual) Eosinophils # (Manual) Basophils # (Manual) PT INR Fibrinogen dRVVT Confirm Interp Factor V Activity POC ABG pH POC ABG pCO2 POC ABG pO2 ABG pO2 ABG HCO3 ABG Base Excess ABG Hemoglobin Oxyhemoglobin Sodium 133 L Potassium Chloride 96.9 L Carbon Dioxide 20 L BUN 63 H Creatinine 2.7 H Glucose 195 H POC Glucose 204 H 169 H Lactic Acid Calcium Phosphorus Magnesium Direct Bilirubin AST ALT Alkaline Phosphatase Lactate Dehydrogenase Troponin T C-Reactive Protein Total Protein Albumin Prealbumin Triglycerides Cholesterol LDL Cholesterol Direct HDL Cholesterol Urine pH Urine WBC (Auto) Urine Creatinine Urine Total Protein Fluid Total Protein Vancomycin Trough Rheumatoid Factor Complement C4 Miscellaneous Test Crossmatch 07/20/17 07/20/17 07/20/17 11:48 11:48 11:48 WBC RBC Hgb Hct MCV MCH MCHC RDW Plt Count Lymph % (Auto) [place] % (Auto) Lymph # Barton # Baso # Seg Neutrophils % Seg Neuts % (Manual) Lymphocytes % (Manual) Monocytes % (Manual) Eosinophils % (Manual) Basophils % (Manual) Nucleated RBC % Seg Neutrophils # Seg Neutrophils # Man Lymphocytes # (Manual) Monocytes # (Manual) Eosinophils # (Manual) Basophils # (Manual) PT INR Fibrinogen 750 H dRVVT Confirm Interp Factor V Activity POC ABG pH POC ABG pCO2 POC ABG pO2 ABG pO2 ABG HCO3 ABG Base Excess ABG Hemoglobin Oxyhemoglobin Sodium Potassium Chloride Carbon Dioxide BUN Creatinine Glucose POC Glucose Lactic Acid Calcium Phosphorus Magnesium Direct Bilirubin AST ALT Alkaline Phosphatase Lactate Dehydrogenase Troponin T C-Reactive Protein 15.70 H Total Protein Albumin Prealbumin Triglycerides Cholesterol LDL Cholesterol Direct HDL Cholesterol Urine pH Urine WBC (Auto) Urine Creatinine Urine Total Protein Fluid Total Protein Vancomycin Trough Rheumatoid Factor 24 H Complement C4 Miscellaneous Test Crossmatch 09/08/16 09/08/16 09/09/16 15:35 18:25 00:24 WBC RBC Hgb Hct MCV MCH MCHC RDW Plt Count Lymph % (Auto) [place] % (Auto) Lymph # [place] # [place] # Seg Neutrophils % Seg Neuts % (Manual) Lymphocytes % (Manual) Monocytes % (Manual) Eosinophils % (Manual) Basophils % (Manual) Nucleated RBC % Seg Neutrophils # Seg Neutrophils # Man Lymphocytes # (Manual) Monocytes # (Manual) Eosinophils # (Manual) Basophils # (Manual) PT INR Fibrinogen dRVVT Confirm Interp Factor V Activity 182 H POC ABG pH POC ABG pCO2 POC ABG pO2 ABG pO2 ABG HCO3 ABG Base Excess ABG Hemoglobin Oxyhemoglobin Sodium Potassium Chloride Carbon Dioxide BUN Creatinine Glucose POC Glucose 184 H 216 H Lactic Acid Calcium Phosphorus Magnesium Direct Bilirubin AST ALT Alkaline Phosphatase Lactate Dehydrogenase Troponin T C-Reactive Protein Total Protein Albumin Prealbumin Triglycerides Cholesterol LDL Cholesterol Direct HDL Cholesterol Urine pH Urine WBC (Auto) Urine Creatinine Urine Total Protein Fluid Total Protein Vancomycin Trough Rheumatoid Factor Complement C4 Miscellaneous Test Crossmatch 09/09/16 09/09/16 09/09/16 03:00 03:00 04:04 WBC 27.9 H RBC Hgb 8.7 L Hct 28.1 L MCV 72 L MCH 22 L MCHC RDW 18.4 H Plt Count 485 H Lymph % (Auto) [place] % (Auto) Lymph # [place] # Baso # Seg Neutrophils % Seg Neuts % (Manual) 77.0 H Lymphocytes % (Manual) 9.0 L Monocytes % (Manual) Eosinophils % (Manual) Basophils % (Manual) Nucleated RBC % Seg Neutrophils # Seg Neutrophils # Man 21.5 H Lymphocytes # (Manual) Monocytes # (Manual) 2.0 H Eosinophils # (Manual) Basophils # (Manual) PT INR Fibrinogen dRVVT Confirm Interp Factor V Activity POC ABG pH POC ABG pCO2 POC ABG pO2 121 H ABG pO2 ABG HCO3 ABG Base Excess ABG Hemoglobin Oxyhemoglobin Sodium 135 L Potassium Chloride 96.3 L Carbon Dioxide 21 L BUN 83 H Creatinine 3.0 H Glucose 135 H POC Glucose Lactic Acid Calcium Phosphorus Magnesium Direct Bilirubin AST ALT Alkaline Phosphatase Lactate Dehydrogenase Troponin T C-Reactive Protein Total Protein Albumin Prealbumin Triglycerides Cholesterol LDL Cholesterol Direct HDL Cholesterol Urine pH Urine WBC (Auto) Urine Creatinine Urine Total Protein Fluid Total Protein Vancomycin Trough Rheumatoid Factor Complement C4 Miscellaneous Test Crossmatch 09/09/16 09/09/16 09/09/16 05:41 11:55 14:13 WBC RBC Hgb Hct MCV MCH MCHC RDW Plt Count Lymph % (Auto) [place] % (Auto) Lymph # [place] # Baso # Seg Neutrophils % Seg Neuts % (Manual) Lymphocytes % (Manual) Monocytes % (Manual) Eosinophils % (Manual) Basophils % (Manual) Nucleated RBC % Seg Neutrophils # Seg Neutrophils # Man Lymphocytes # (Manual) Monocytes # (Manual) Eosinophils # (Manual) Basophils # (Manual) PT INR Fibrinogen dRVVT Confirm Interp Factor V Activity POC ABG pH POC ABG pCO2 POC ABG pO2 ABG pO2 ABG HCO3 ABG Base Excess ABG Hemoglobin Oxyhemoglobin Sodium Potassium Chloride Carbon Dioxide BUN Creatinine Glucose POC Glucose 155 H 186 H Lactic Acid Calcium Phosphorus Magnesium Direct Bilirubin AST ALT Alkaline Phosphatase Lactate Dehydrogenase Troponin T C-Reactive Protein Total Protein Albumin Prealbumin Triglycerides Cholesterol LDL Cholesterol Direct HDL Cholesterol Urine pH Urine WBC (Auto) 25.0 H Urine Creatinine Urine Total Protein Fluid Total Protein Vancomycin Trough Rheumatoid Factor Complement C4 Miscellaneous Test Crossmatch 09/09/16 09/09/16 09/10/16 17:33 23:13 05:09 WBC RBC Hgb Hct MCV MCH MCHC RDW Plt Count Lymph % (Auto) [place] % (Auto) Lymph # [place] # Baso # Seg Neutrophils % Seg Neuts % (Manual) Lymphocytes % (Manual) Monocytes % (Manual) Eosinophils % (Manual) Basophils % (Manual) Nucleated RBC % Seg Neutrophils # Seg Neutrophils # Man Lymphocytes # (Manual) Monocytes # (Manual) Eosinophils # (Manual) Basophils # (Manual) PT INR Fibrinogen dRVVT Confirm Interp Factor V Activity POC ABG pH POC ABG pCO2 POC ABG pO2 74 L ABG pO2 ABG HCO3 ABG Base Excess ABG Hemoglobin Oxyhemoglobin Sodium Potassium Chloride Carbon Dioxide BUN Creatinine Glucose POC Glucose 211 H 215 H Lactic Acid Calcium Phosphorus Magnesium Direct Bilirubin AST ALT Alkaline Phosphatase Lactate Dehydrogenase Troponin T C-Reactive Protein Total Protein Albumin Prealbumin Triglycerides Cholesterol LDL Cholesterol Direct HDL Cholesterol Urine pH Urine WBC (Auto) Urine Creatinine Urine Total Protein Fluid Total Protein Vancomycin Trough Rheumatoid Factor Complement C4 Miscellaneous Test Crossmatch 09/10/16 09/10/16 09/10/16 05:17 05:17 11:31 WBC 15.8 H RBC 3.25 L Hgb 7.3 L Hct 22.9 L MCV 71 L MCH 23 L MCHC RDW 18.4 H Plt Count Lymph % (Auto) [place] % (Auto) Lymph # [place] # Baso # Seg Neutrophils % Seg Neuts % (Manual) 91.0 H Lymphocytes % (Manual) 4.0 L Monocytes % (Manual) Eosinophils % (Manual) Basophils % (Manual) Nucleated RBC % Seg Neutrophils # Seg Neutrophils # Man 14.4 H Lymphocytes # (Manual) 0.6 L Monocytes # (Manual) Eosinophils # (Manual) Basophils # (Manual) PT INR Fibrinogen dRVVT Confirm Interp Factor V Activity POC ABG pH POC ABG pCO2 POC ABG pO2 ABG pO2 ABG HCO3 ABG Base Excess ABG Hemoglobin Oxyhemoglobin Sodium Potassium Chloride Carbon Dioxide 21 L BUN 93 H Creatinine 2.9 H Glucose 146 H POC Glucose 188 H Lactic Acid Calcium 8.1 L Phosphorus Magnesium Direct Bilirubin AST ALT Alkaline Phosphatase Lactate Dehydrogenase Troponin T C-Reactive Protein Total Protein Albumin Prealbumin Triglycerides Cholesterol LDL Cholesterol Direct HDL Cholesterol Urine pH Urine WBC (Auto) Urine Creatinine Urine Total Protein Fluid Total Protein Vancomycin Trough Rheumatoid Factor Complement C4 Miscellaneous Test Crossmatch 09/10/16 09/10/16 09/10/16 13:17 17:20 23:32 WBC RBC Hgb Hct MCV MCH MCHC RDW Plt Count Lymph % (Auto) [place] % (Auto) Lymph # [place] # Baso # Seg Neutrophils % Seg Neuts % (Manual) Lymphocytes % (Manual) Monocytes % (Manual) Eosinophils % (Manual) Basophils % (Manual) Nucleated RBC % Seg Neutrophils # Seg Neutrophils # Man Lymphocytes # (Manual) Monocytes # (Manual) Eosinophils # (Manual) Basophils # (Manual) PT INR Fibrinogen dRVVT Confirm Interp Factor V Activity POC ABG pH POC ABG pCO2 POC ABG pO2 ABG pO2 ABG HCO3 ABG Base Excess ABG Hemoglobin Oxyhemoglobin Sodium Potassium Chloride Carbon Dioxide BUN Creatinine Glucose POC Glucose 199 H 186 H Lactic Acid Calcium Phosphorus Magnesium Direct Bilirubin AST ALT Alkaline Phosphatase Lactate Dehydrogenase Troponin T C-Reactive Protein Total Protein Albumin Prealbumin Triglycerides Cholesterol LDL Cholesterol Direct HDL Cholesterol Urine pH Urine WBC (Auto) Urine Creatinine Urine Total Protein Fluid Total Protein Vancomycin Trough Rheumatoid Factor Complement C4 Miscellaneous Test Crossmatch See Detail 09/11/16 09/11/16 09/11/16 05:10 05:10 05:17 WBC 28.4 H RBC Hgb 9.2 L Hct 29.3 L D MCV 73 L MCH 23 L MCHC RDW 18.9 H Plt Count 452 H Lymph % (Auto) [place] % (Auto) Lymph # [place] # Baso # Seg Neutrophils % Seg Neuts % (Manual) 89.5 H Lymphocytes % (Manual) 2.0 L Monocytes % (Manual) Eosinophils % (Manual) Basophils % (Manual) Nucleated RBC % Seg Neutrophils # Seg Neutrophils # Man 25.4 H Lymphocytes # (Manual) 0.6 L Monocytes # (Manual) 1.3 H Eosinophils # (Manual) Basophils # (Manual) PT INR Fibrinogen dRVVT Confirm Interp Factor V Activity POC ABG pH POC ABG pCO2 POC ABG pO2 ABG pO2 ABG HCO3 ABG Base Excess ABG Hemoglobin Oxyhemoglobin Sodium 136 L Potassium Chloride Carbon Dioxide 18 L BUN 107 H Creatinine 2.6 H Glucose 187 H POC Glucose 230 H Lactic Acid Calcium 8.3 L Phosphorus Magnesium Direct Bilirubin AST ALT Alkaline Phosphatase Lactate Dehydrogenase Troponin T C-Reactive Protein Total Protein Albumin Prealbumin Triglycerides Cholesterol LDL Cholesterol Direct HDL Cholesterol Urine pH Urine WBC (Auto) Urine Creatinine Urine Total Protein Fluid Total Protein Vancomycin Trough Rheumatoid Factor Complement C4 Miscellaneous Test Crossmatch 09/11/16 09/11/16 09/11/16 05:55 12:02 17:32 WBC RBC Hgb Hct MCV MCH MCHC RDW Plt Count Lymph % (Auto) [place] % (Auto) Lymph # [place] # Baso # Seg Neutrophils % Seg Neuts % (Manual) Lymphocytes % (Manual) Monocytes % (Manual) Eosinophils % (Manual) Basophils % (Manual) Nucleated RBC % Seg Neutrophils # Seg Neutrophils # Man Lymphocytes # (Manual) Monocytes # (Manual) Eosinophils # (Manual) Basophils # (Manual) PT INR Fibrinogen dRVVT Confirm Interp Factor V Activity POC ABG pH POC ABG pCO2 33.8 L POC ABG pO2 ABG pO2 ABG HCO3 ABG Base Excess ABG Hemoglobin Oxyhemoglobin Sodium Potassium Chloride Carbon Dioxide BUN Creatinine Glucose POC Glucose 191 H 239 H Lactic Acid Calcium Phosphorus Magnesium Direct Bilirubin AST ALT Alkaline Phosphatase Lactate Dehydrogenase Troponin T C-Reactive Protein Total Protein Albumin Prealbumin Triglycerides Cholesterol LDL Cholesterol Direct HDL Cholesterol Urine pH Urine WBC (Auto) Urine Creatinine Urine Total Protein Fluid Total Protein Vancomycin Trough Rheumatoid Factor Complement C4 Miscellaneous Test Crossmatch 09/11/16 09/12/16 09/12/16 23:52 05:09 05:32 WBC RBC Hgb Hct MCV MCH MCHC RDW Plt Count Lymph % (Auto) [place] % (Auto) Lymph # [place] # Baso # Seg Neutrophils % Seg Neuts % (Manual) Lymphocytes % (Manual) Monocytes % (Manual) Eosinophils % (Manual) Basophils % (Manual) Nucleated RBC % Seg Neutrophils # Seg Neutrophils # Man Lymphocytes # (Manual) Monocytes # (Manual) Eosinophils # (Manual) Basophils # (Manual) PT INR Fibrinogen dRVVT Confirm Interp Factor V Activity POC ABG pH POC ABG pCO2 34.6 L POC ABG pO2 ABG pO2 ABG HCO3 ABG Base Excess ABG Hemoglobin Oxyhemoglobin Sodium Potassium Chloride Carbon Dioxide BUN Creatinine Glucose POC Glucose 265 H 184 H Lactic Acid Calcium Phosphorus Magnesium Direct Bilirubin AST ALT Alkaline Phosphatase Lactate Dehydrogenase Troponin T C-Reactive Protein Total Protein Albumin Prealbumin Triglycerides Cholesterol LDL Cholesterol Direct HDL Cholesterol Urine pH Urine WBC (Auto) Urine Creatinine Urine Total Protein Fluid Total Protein Vancomycin Trough Rheumatoid Factor Complement C4 Miscellaneous Test Crossmatch 09/12/16 09/12/16 09/12/16 06:45 06:45 07:22 WBC 31.7 H RBC 3.54 L Hgb 8.3 L Hct 25.9 L MCV 73 L MCH 23 L MCHC RDW 18.9 H Plt Count Lymph % (Auto) [place] % (Auto) Lymph # [place] # Baso # Seg Neutrophils % Seg Neuts % (Manual) 88.5 H Lymphocytes % (Manual) 4.5 L Monocytes % (Manual) Eosinophils % (Manual) Basophils % (Manual) Nucleated RBC % Seg Neutrophils # Seg Neutrophils # Man 28.1 H Lymphocytes # (Manual) Monocytes # (Manual) 1.0 H Eosinophils # (Manual) Basophils # (Manual) PT INR Fibrinogen dRVVT Confirm Interp Factor V Activity POC ABG pH POC ABG pCO2 POC ABG pO2 ABG pO2 ABG HCO3 ABG Base Excess ABG Hemoglobin Oxyhemoglobin Sodium Potassium Chloride Carbon Dioxide 20 L BUN 115 H Creatinine 2.7 H Glucose 165 H POC Glucose Lactic Acid Calcium 8.0 L Phosphorus Magnesium Direct Bilirubin AST ALT Alkaline Phosphatase Lactate Dehydrogenase Troponin T C-Reactive Protein Total Protein Albumin Prealbumin Triglycerides 217 H Cholesterol LDL Cholesterol Direct HDL Cholesterol Urine pH Urine WBC (Auto) Urine Creatinine Urine Total Protein Fluid Total Protein Vancomycin Trough Rheumatoid Factor Complement C4 Miscellaneous Test Crossmatch 09/12/16 09/12/16 09/12/16 07:22 09:59 12:21 WBC RBC Hgb Hct MCV MCH MCHC RDW Plt Count Lymph % (Auto) [place] % (Auto) Lymph # [place] # Baso # Seg Neutrophils % Seg Neuts % (Manual) Lymphocytes % (Manual) Monocytes % (Manual) Eosinophils % (Manual) Basophils % (Manual) Nucleated RBC % Seg Neutrophils # Seg Neutrophils # Man Lymphocytes # (Manual) Monocytes # (Manual) Eosinophils # (Manual) Basophils # (Manual) PT INR Fibrinogen dRVVT Confirm Interp Positive H Factor V Activity POC ABG pH POC ABG pCO2 POC ABG pO2 ABG pO2 ABG HCO3 ABG Base Excess ABG Hemoglobin Oxyhemoglobin Sodium Potassium Chloride Carbon Dioxide BUN Creatinine Glucose POC Glucose 224 H Lactic Acid Calcium Phosphorus Magnesium Direct Bilirubin AST ALT Alkaline Phosphatase Lactate Dehydrogenase Troponin T C-Reactive Protein 1.70 H Total Protein Albumin Prealbumin Triglycerides Cholesterol LDL Cholesterol Direct HDL Cholesterol Urine pH Urine WBC (Auto) Urine Creatinine Urine Total Protein Fluid Total Protein Vancomycin Trough Rheumatoid Factor Complement C4 Miscellaneous Test Crossmatch 09/12/16 09/12/16 09/13/16 16:51 23:28 04:00 WBC 45.0 H* RBC Hgb 9.4 L Hct MCV 75 L MCH 23 L MCHC RDW 19.0 H Plt Count 470 H Lymph % (Auto) [place] % (Auto) Lymph # [place] # Baso # Seg Neutrophils % Seg Neuts % (Manual) 89.0 H Lymphocytes % (Manual) 5.0 L Monocytes % (Manual) Eosinophils % (Manual) Basophils % (Manual) Nucleated RBC % Seg Neutrophils # Seg Neutrophils # Man 40.1 H Lymphocytes # (Manual) Monocytes # (Manual) Eosinophils # (Manual) Basophils # (Manual) PT INR Fibrinogen dRVVT Confirm Interp Factor V Activity POC ABG pH POC ABG pCO2 POC ABG pO2 ABG pO2 ABG HCO3 ABG Base Excess ABG Hemoglobin Oxyhemoglobin Sodium Potassium Chloride Carbon Dioxide BUN Creatinine Glucose POC Glucose 169 H 150 H Lactic Acid Calcium Phosphorus Magnesium Direct Bilirubin AST ALT Alkaline Phosphatase Lactate Dehydrogenase Troponin T C-Reactive Protein Total Protein Albumin Prealbumin Triglycerides Cholesterol LDL Cholesterol Direct HDL Cholesterol Urine pH Urine WBC (Auto) Urine Creatinine Urine Total Protein Fluid Total Protein Vancomycin Trough Rheumatoid Factor Complement C4 Miscellaneous Test Crossmatch 09/13/16 09/13/16 09/13/16 04:00 11:26 17:31 WBC RBC Hgb Hct MCV MCH MCHC RDW Plt Count Lymph % (Auto) [place] % (Auto) Lymph # [place] # Baso # Seg Neutrophils % Seg Neuts % (Manual) Lymphocytes % (Manual) Monocytes % (Manual) Eosinophils % (Manual) Basophils % (Manual) Nucleated RBC % Seg Neutrophils # Seg Neutrophils # Man Lymphocytes # (Manual) Monocytes # (Manual) Eosinophils # (Manual) Basophils # (Manual) PT INR Fibrinogen dRVVT Confirm Interp Factor V Activity POC ABG pH POC ABG pCO2 POC ABG pO2 ABG pO2 ABG HCO3 ABG Base Excess ABG Hemoglobin Oxyhemoglobin Sodium Potassium Chloride Carbon Dioxide 20 L BUN 116 H Creatinine 3.0 H Glucose 172 H POC Glucose 140 H 183 H Lactic Acid Calcium Phosphorus Magnesium Direct Bilirubin AST ALT Alkaline Phosphatase Lactate Dehydrogenase Troponin T C-Reactive Protein Total Protein 6.2 L Albumin 2.9 L Prealbumin Triglycerides Cholesterol LDL Cholesterol Direct HDL Cholesterol Urine pH Urine WBC (Auto) Urine Creatinine Urine Total Protein Fluid Total Protein Vancomycin Trough Rheumatoid Factor Complement C4 Miscellaneous Test Crossmatch 09/13/16 09/14/16 09/14/16 23:23 04:06 04:07 WBC 29.4 H RBC Hgb 8.9 L Hct 27.3 L MCV 75 L MCH 24 L MCHC RDW 19.1 H Plt Count Lymph % (Auto) [place] % (Auto) Lymph # [place] # Baso # Seg Neutrophils % Seg Neuts % (Manual) 84.0 H Lymphocytes % (Manual) 6.0 L Monocytes % (Manual) 9.0 H Eosinophils % (Manual) Basophils % (Manual) Nucleated RBC % Seg Neutrophils # Seg Neutrophils # Man 24.7 H Lymphocytes # (Manual) Monocytes # (Manual) 2.6 H Eosinophils # (Manual) Basophils # (Manual) PT INR Fibrinogen dRVVT Confirm Interp Factor V Activity POC ABG pH 7.342 L POC ABG pCO2 POC ABG pO2 116 H ABG pO2 ABG HCO3 ABG Base Excess ABG Hemoglobin Oxyhemoglobin Sodium Potassium Chloride Carbon Dioxide BUN Creatinine Glucose POC Glucose 154 H Lactic Acid Calcium Phosphorus Magnesium Direct Bilirubin AST ALT Alkaline Phosphatase Lactate Dehydrogenase Troponin T C-Reactive Protein Total Protein Albumin Prealbumin Triglycerides Cholesterol LDL Cholesterol Direct HDL Cholesterol Urine pH Urine WBC (Auto) Urine Creatinine Urine Total Protein Fluid Total Protein Vancomycin Trough Rheumatoid Factor Complement C4 Miscellaneous Test Crossmatch 09/14/16 09/14/16 09/14/16 04:07 05:29 12:19 WBC RBC Hgb Hct MCV MCH MCHC RDW Plt Count Lymph % (Auto) [place] % (Auto) Lymph # [place] # Baso # Seg Neutrophils % Seg Neuts % (Manual) Lymphocytes % (Manual) Monocytes % (Manual) Eosinophils % (Manual) Basophils % (Manual) Nucleated RBC % Seg Neutrophils # Seg Neutrophils # Man Lymphocytes # (Manual) Monocytes # (Manual) Eosinophils # (Manual) Basophils # (Manual) PT INR Fibrinogen dRVVT Confirm Interp Factor V Activity POC ABG pH POC ABG pCO2 POC ABG pO2 ABG pO2 ABG HCO3 ABG Base Excess ABG Hemoglobin Oxyhemoglobin Sodium 136 L Potassium Chloride Carbon Dioxide 18 L BUN 121 H Creatinine 2.8 H Glucose 214 H POC Glucose 239 H 181 H Lactic Acid Calcium Phosphorus Magnesium Direct Bilirubin AST ALT Alkaline Phosphatase Lactate Dehydrogenase Troponin T C-Reactive Protein Total Protein Albumin Prealbumin Triglycerides Cholesterol LDL Cholesterol Direct HDL Cholesterol Urine pH Urine WBC (Auto) Urine Creatinine Urine Total Protein Fluid Total Protein Vancomycin Trough Rheumatoid Factor Complement C4 Miscellaneous Test Crossmatch 07/26/17 07/26/17 07/27/17 18:12 23:37 05:00 WBC 26.1 H RBC 3.05 L Hgb 7.2 L Hct 22.9 L MCV 75 L MCH 24 L MCHC RDW 19.0 H Plt Count Lymph % (Auto) [place] % (Auto) Lymph # [place] # Baso # Seg Neutrophils % Seg Neuts % (Manual) Lymphocytes % (Manual) Monocytes % (Manual) Eosinophils % (Manual) Basophils % (Manual) Nucleated RBC % Seg Neutrophils # Seg Neutrophils # Man Lymphocytes # (Manual) Monocytes # (Manual) Eosinophils # (Manual) Basophils # (Manual) PT INR Fibrinogen dRVVT Confirm Interp Factor V Activity POC ABG pH POC ABG pCO2 POC ABG pO2 ABG pO2 ABG HCO3 ABG Base Excess ABG Hemoglobin Oxyhemoglobin Sodium Potassium Chloride Carbon Dioxide BUN Creatinine Glucose POC Glucose 266 H 154 H Lactic Acid Calcium Phosphorus Magnesium Direct Bilirubin AST ALT Alkaline Phosphatase Lactate Dehydrogenase Troponin T C-Reactive Protein Total Protein Albumin Prealbumin Triglycerides Cholesterol LDL Cholesterol Direct HDL Cholesterol Urine pH Urine WBC (Auto) Urine Creatinine Urine Total Protein Fluid Total Protein Vancomycin Trough Rheumatoid Factor Complement C4 Miscellaneous Test Crossmatch 09/15/16 09/15/16 09/15/16 05:00 05:17 12:45 WBC RBC Hgb Hct MCV MCH MCHC RDW Plt Count Lymph % (Auto) [place] % (Auto) Lymph # [place] # Baso # Seg Neutrophils % Seg Neuts % (Manual) Lymphocytes % (Manual) Monocytes % (Manual) Eosinophils % (Manual) Basophils % (Manual) Nucleated RBC % Seg Neutrophils # Seg Neutrophils # Man Lymphocytes # (Manual) Monocytes # (Manual) Eosinophils # (Manual) Basophils # (Manual) PT INR Fibrinogen dRVVT Confirm Interp Factor V Activity POC ABG pH POC ABG pCO2 POC ABG pO2 ABG pO2 ABG HCO3 ABG Base Excess ABG Hemoglobin Oxyhemoglobin Sodium Potassium 5.2 H Chloride Carbon Dioxide 18 L BUN 139 H Creatinine 3.7 H Glucose 227 H POC Glucose 226 H 244 H Lactic Acid Calcium 8.3 L Phosphorus Magnesium Direct Bilirubin AST ALT Alkaline Phosphatase Lactate Dehydrogenase Troponin T C-Reactive Protein Total Protein Albumin Prealbumin Triglycerides Cholesterol LDL Cholesterol Direct HDL Cholesterol Urine pH Urine WBC (Auto) Urine Creatinine Urine Total Protein Fluid Total Protein Vancomycin Trough Rheumatoid Factor Complement C4 Miscellaneous Test Crossmatch 09/15/16 09/15/16 09/15/16 14:32 17:33 23:35 WBC RBC Hgb Hct MCV MCH MCHC RDW Plt Count Lymph % (Auto) [place] % (Auto) Lymph # [place] # Baso # Seg Neutrophils % Seg Neuts % (Manual) Lymphocytes % (Manual) Monocytes % (Manual) Eosinophils % (Manual) Basophils % (Manual) Nucleated RBC % Seg Neutrophils # Seg Neutrophils # Man Lymphocytes # (Manual) Monocytes # (Manual) Eosinophils # (Manual) Basophils # (Manual) PT INR Fibrinogen dRVVT Confirm Interp Factor V Activity POC ABG pH POC ABG pCO2 27.7 L POC ABG pO2 120 H ABG pO2 ABG HCO3 ABG Base Excess ABG Hemoglobin Oxyhemoglobin Sodium Potassium Chloride Carbon Dioxide BUN Creatinine Glucose POC Glucose 232 H 167 H Lactic Acid Calcium Phosphorus Magnesium Direct Bilirubin AST ALT Alkaline Phosphatase Lactate Dehydrogenase Troponin T C-Reactive Protein Total Protein Albumin Prealbumin Triglycerides Cholesterol LDL Cholesterol Direct HDL Cholesterol Urine pH Urine WBC (Auto) Urine Creatinine Urine Total Protein Fluid Total Protein Vancomycin Trough Rheumatoid Factor Complement C4 Miscellaneous Test Crossmatch 09/16/16 09/16/16 09/16/16 03:58 10:27 10:27 WBC 19.0 H RBC 2.77 L Hgb 6.5 L Hct 20.9 L MCV 76 L MCH 23 L MCHC RDW 19.3 H Plt Count Lymph % (Auto) 11.0 L [place] % (Auto) Lymph # [place] # 1.1 H Baso # Seg Neutrophils % 82.5 H Seg Neuts % (Manual) Lymphocytes % (Manual) Monocytes % (Manual) Eosinophils % (Manual) Basophils % (Manual) Nucleated RBC % Seg Neutrophils # 15.7 H Seg Neutrophils # Man Lymphocytes # (Manual) Monocytes # (Manual) Eosinophils # (Manual) Basophils # (Manual) PT INR Fibrinogen dRVVT Confirm Interp Factor V Activity POC ABG pH POC ABG pCO2 POC ABG pO2 ABG pO2 ABG HCO3 ABG Base Excess ABG Hemoglobin Oxyhemoglobin Sodium Potassium Chloride 109.3 H Carbon Dioxide 18 L BUN 139 H Creatinine 4.1 H Glucose 144 H POC Glucose 146 H Lactic Acid Calcium 8.1 L Phosphorus Magnesium Direct Bilirubin AST ALT Alkaline Phosphatase Lactate Dehydrogenase Troponin T C-Reactive Protein Total Protein Albumin Prealbumin Triglycerides Cholesterol LDL Cholesterol Direct HDL Cholesterol Urine pH Urine WBC (Auto) Urine Creatinine Urine Total Protein Fluid Total Protein Vancomycin Trough Rheumatoid Factor Complement C4 Miscellaneous Test Crossmatch 07/09/16/16 09/16/16 12:04 12:10 13:55 WBC RBC Hgb Hct MCV MCH MCHC RDW Plt Count Lymph % (Auto) [place] % (Auto) Lymph # [place] # Baso # Seg Neutrophils % Seg Neuts % (Manual) Lymphocytes % (Manual) Monocytes % (Manual) Eosinophils % (Manual) Basophils % (Manual) Nucleated RBC % Seg Neutrophils # Seg Neutrophils # Man Lymphocytes # (Manual) Monocytes # (Manual) Eosinophils # (Manual) Basophils # (Manual) PT INR Fibrinogen dRVVT Confirm Interp Factor V Activity POC ABG pH POC ABG pCO2 32.9 L POC ABG pO2 ABG pO2 ABG HCO3 ABG Base Excess ABG Hemoglobin Oxyhemoglobin Sodium Potassium Chloride Carbon Dioxide BUN Creatinine Glucose POC Glucose 185 H Lactic Acid Calcium Phosphorus Magnesium Direct Bilirubin AST ALT Alkaline Phosphatase Lactate Dehydrogenase Troponin T C-Reactive Protein Total Protein Albumin Prealbumin Triglycerides Cholesterol LDL Cholesterol Direct HDL Cholesterol Urine pH Urine WBC (Auto) Urine Creatinine Urine Total Protein Fluid Total Protein Vancomycin Trough Rheumatoid Factor Complement C4 Miscellaneous Test Crossmatch See Detail 09/16/16 09/16/16 09/16/16 17:55 19:19 23:48 WBC RBC Hgb Hct MCV MCH MCHC RDW Plt Count Lymph % (Auto) [place] % (Auto) Lymph # [place] # Baso # Seg Neutrophils % Seg Neuts % (Manual) Lymphocytes % (Manual) Monocytes % (Manual) Eosinophils % (Manual) Basophils % (Manual) Nucleated RBC % Seg Neutrophils # Seg Neutrophils # Man Lymphocytes # (Manual) Monocytes # (Manual) Eosinophils # (Manual) Basophils # (Manual) PT INR Fibrinogen dRVVT Confirm Interp Factor V Activity POC ABG pH POC ABG pCO2 POC ABG pO2 ABG pO2 ABG HCO3 ABG Base Excess ABG Hemoglobin Oxyhemoglobin Sodium Potassium Chloride Carbon Dioxide BUN Creatinine Glucose POC Glucose 222 H 107 H Lactic Acid Calcium Phosphorus Magnesium Direct Bilirubin AST ALT Alkaline Phosphatase Lactate Dehydrogenase Troponin T C-Reactive Protein Total Protein Albumin Prealbumin Triglycerides Cholesterol LDL Cholesterol Direct HDL Cholesterol Urine pH Urine WBC (Auto) Urine Creatinine 47.4 H Urine Total Protein 16 H Fluid Total Protein Vancomycin Trough Rheumatoid Factor Complement C4 Miscellaneous Test Crossmatch 09/17/16 09/17/16 09/17/16 03:45 03:45 04:55 WBC 19.6 H RBC 3.41 L Hgb 8.5 L Hct 26.7 L MCV 78 L MCH 25 L MCHC RDW 19.9 H Plt Count Lymph % (Auto) 9.3 L [place] % (Auto) Lymph # [place] # 1.2 H Baso # Seg Neutrophils % 83.9 H Seg Neuts % (Manual) Lymphocytes % (Manual) Monocytes % (Manual) Eosinophils % (Manual) Basophils % (Manual) Nucleated RBC % Seg Neutrophils # 16.4 H Seg Neutrophils # Man Lymphocytes # (Manual) Monocytes # (Manual) Eosinophils # (Manual) Basophils # (Manual) PT INR Fibrinogen dRVVT Confirm Interp Factor V Activity POC ABG pH POC ABG pCO2 POC ABG pO2 ABG pO2 ABG HCO3 ABG Base Excess ABG Hemoglobin Oxyhemoglobin Sodium 146 H Potassium 5.1 H Chloride 110.9 H Carbon Dioxide 16 L BUN 146 H Creatinine 4.0 H Glucose 108 H POC Glucose 133 H Lactic Acid Calcium Phosphorus Magnesium 3.00 H Direct Bilirubin AST ALT Alkaline Phosphatase Lactate Dehydrogenase Troponin T C-Reactive Protein Total Protein Albumin Prealbumin Triglycerides Cholesterol LDL Cholesterol Direct HDL Cholesterol Urine pH Urine WBC (Auto) Urine Creatinine Urine Total Protein Fluid Total Protein Vancomycin Trough Rheumatoid Factor Complement C4 Miscellaneous Test Crossmatch 09/17/16 09/17/16 09/17/16 11:15 17:33 23:47 WBC RBC Hgb Hct MCV MCH MCHC RDW Plt Count Lymph % (Auto) [place] % (Auto) Lymph # [place] # Baso # Seg Neutrophils % Seg Neuts % (Manual) Lymphocytes % (Manual) Monocytes % (Manual) Eosinophils % (Manual) Basophils % (Manual) Nucleated RBC % Seg Neutrophils # Seg Neutrophils # Man Lymphocytes # (Manual) Monocytes # (Manual) Eosinophils # (Manual) Basophils # (Manual) PT INR Fibrinogen dRVVT Confirm Interp Factor V Activity POC ABG pH POC ABG pCO2 POC ABG pO2 ABG pO2 ABG HCO3 ABG Base Excess ABG Hemoglobin Oxyhemoglobin Sodium Potassium Chloride Carbon Dioxide BUN Creatinine Glucose POC Glucose 176 H 246 H 148 H Lactic Acid Calcium Phosphorus Magnesium Direct Bilirubin AST ALT Alkaline Phosphatase Lactate Dehydrogenase Troponin T C-Reactive Protein Total Protein Albumin Prealbumin Triglycerides Cholesterol LDL Cholesterol Direct HDL Cholesterol Urine pH Urine WBC (Auto) Urine Creatinine Urine Total Protein Fluid Total Protein Vancomycin Trough Rheumatoid Factor Complement C4 Miscellaneous Test Crossmatch 09/18/16 09/18/16 09/18/16 05:33 08:31 08:31 WBC 18.0 H RBC 3.17 L Hgb 9.0 L Hct 25.7 L MCV MCH MCHC 35 H RDW 20.4 H Plt Count Lymph % (Auto) [place] % (Auto) Lymph # [place] # Baso # Seg Neutrophils % Seg Neuts % (Manual) Lymphocytes % (Manual) Monocytes % (Manual) Eosinophils % (Manual) Basophils % (Manual) Nucleated RBC % Seg Neutrophils # Seg Neutrophils # Man Lymphocytes # (Manual) Monocytes # (Manual) Eosinophils # (Manual) Basophils # (Manual) PT INR Fibrinogen dRVVT Confirm Interp Factor V Activity POC ABG pH POC ABG pCO2 POC ABG pO2 ABG pO2 ABG HCO3 ABG Base Excess ABG Hemoglobin Oxyhemoglobin Sodium Potassium Chloride Carbon Dioxide 15 L BUN 124 H Creatinine 3.8 H Glucose POC Glucose 120 H Lactic Acid Calcium 8.1 L Phosphorus Magnesium Direct Bilirubin AST ALT Alkaline Phosphatase Lactate Dehydrogenase Troponin T C-Reactive Protein Total Protein Albumin Prealbumin Triglycerides Cholesterol LDL Cholesterol Direct HDL Cholesterol Urine pH Urine WBC (Auto) Urine Creatinine Urine Total Protein Fluid Total Protein Vancomycin Trough Rheumatoid Factor Complement C4 Miscellaneous Test Crossmatch 09/18/16 09/18/16 09/18/16 12:03 15:34 17:50 WBC RBC Hgb Hct MCV MCH MCHC RDW Plt Count Lymph % (Auto) [place] % (Auto) Lymph # [place] # Baso # Seg Neutrophils % Seg Neuts % (Manual) Lymphocytes % (Manual) Monocytes % (Manual) Eosinophils % (Manual) Basophils % (Manual) Nucleated RBC % Seg Neutrophils # Seg Neutrophils # Man Lymphocytes # (Manual) Monocytes # (Manual) Eosinophils # (Manual) Basophils # (Manual) PT INR Fibrinogen dRVVT Confirm Interp Factor V Activity POC ABG pH POC ABG pCO2 25.7 L POC ABG pO2 66 L ABG pO2 ABG HCO3 ABG Base Excess ABG Hemoglobin Oxyhemoglobin Sodium Potassium Chloride Carbon Dioxide BUN Creatinine Glucose POC Glucose 156 H 220 H Lactic Acid Calcium Phosphorus Magnesium Direct Bilirubin AST ALT Alkaline Phosphatase Lactate Dehydrogenase Troponin T C-Reactive Protein Total Protein Albumin Prealbumin Triglycerides Cholesterol LDL Cholesterol Direct HDL Cholesterol Urine pH Urine WBC (Auto) Urine Creatinine Urine Total Protein Fluid Total Protein Vancomycin Trough Rheumatoid Factor Complement C4 Miscellaneous Test Crossmatch 09/19/16 09/19/16 09/19/16 06:21 09:50 09:50 WBC 17.1 H RBC 3.49 L Hgb 9.0 L Hct 28.1 L MCV MCH 26 L MCHC RDW 20.8 H Plt Count Lymph % (Auto) 11.5 L [place] % (Auto) 7.5 H Lymph # [place] # 1.3 H Baso # Seg Neutrophils % 79.8 H Seg Neuts % (Manual) Lymphocytes % (Manual) Monocytes % (Manual) Eosinophils % (Manual) Basophils % (Manual) Nucleated RBC % Seg Neutrophils # 13.7 H Seg Neutrophils # Man Lymphocytes # (Manual) Monocytes # (Manual) Eosinophils # (Manual) Basophils # (Manual) PT INR Fibrinogen dRVVT Confirm Interp Factor V Activity POC ABG pH POC ABG pCO2 POC ABG pO2 ABG pO2 ABG HCO3 ABG Base Excess ABG Hemoglobin Oxyhemoglobin Sodium Potassium Chloride 108.6 H Carbon Dioxide 15 L BUN 125 H Creatinine 4.1 H Glucose 124 H POC Glucose 119 H Lactic Acid Calcium Phosphorus Magnesium Direct Bilirubin AST ALT Alkaline Phosphatase Lactate Dehydrogenase Troponin T C-Reactive Protein Total Protein Albumin Prealbumin Triglycerides Cholesterol LDL Cholesterol Direct HDL Cholesterol Urine pH Urine WBC (Auto) Urine Creatinine Urine Total Protein Fluid Total Protein Vancomycin Trough Rheumatoid Factor Complement C4 Miscellaneous Test Crossmatch 09/19/16 09/19/16 09/19/16 11:25 17:53 23:36 WBC RBC Hgb Hct MCV MCH MCHC RDW Plt Count Lymph % (Auto) [place] % (Auto) Lymph # [place] # Baso # Seg Neutrophils % Seg Neuts % (Manual) Lymphocytes % (Manual) Monocytes % (Manual) Eosinophils % (Manual) Basophils % (Manual) Nucleated RBC % Seg Neutrophils # Seg Neutrophils # Man Lymphocytes # (Manual) Monocytes # (Manual) Eosinophils # (Manual) Basophils # (Manual) PT INR Fibrinogen dRVVT Confirm Interp Factor V Activity POC ABG pH POC ABG pCO2 POC ABG pO2 ABG pO2 ABG HCO3 ABG Base Excess ABG Hemoglobin Oxyhemoglobin Sodium Potassium Chloride Carbon Dioxide BUN Creatinine Glucose POC Glucose 160 H 245 H 121 H Lactic Acid Calcium Phosphorus Magnesium Direct Bilirubin AST ALT Alkaline Phosphatase Lactate Dehydrogenase Troponin T C-Reactive Protein Total Protein Albumin Prealbumin Triglycerides Cholesterol LDL Cholesterol Direct HDL Cholesterol Urine pH Urine WBC (Auto) Urine Creatinine Urine Total Protein Fluid Total Protein Vancomycin Trough Rheumatoid Factor Complement C4 Miscellaneous Test Crossmatch 09/20/16 09/20/16 09/20/16 04:10 04:10 04:10 WBC 17.0 H RBC 3.21 L Hgb 8.2 L Hct 25.5 L MCV MCH 26 L MCHC RDW 20.9 H Plt Count Lymph % (Auto) [place] % (Auto) Lymph # [place] # Baso # Seg Neutrophils % Seg Neuts % (Manual) Lymphocytes % (Manual) Monocytes % (Manual) Eosinophils % (Manual) Basophils % (Manual) Nucleated RBC % Seg Neutrophils # Seg Neutrophils # Man Lymphocytes # (Manual) Monocytes # (Manual) Eosinophils # (Manual) Basophils # (Manual) PT INR Fibrinogen dRVVT Confirm Interp Factor V Activity POC ABG pH POC ABG pCO2 POC ABG pO2 ABG pO2 ABG HCO3 ABG Base Excess ABG Hemoglobin Oxyhemoglobin Sodium Potassium Chloride 111.0 H Carbon Dioxide 16 L BUN 129 H Creatinine 3.7 H Glucose 115 H POC Glucose Lactic Acid Calcium 8.2 L Phosphorus Magnesium Direct Bilirubin AST ALT Alkaline Phosphatase Lactate Dehydrogenase Troponin T C-Reactive Protein Total Protein Albumin Prealbumin Triglycerides 243 H Cholesterol LDL Cholesterol Direct HDL Cholesterol Urine pH Urine WBC (Auto) Urine Creatinine Urine Total Protein Fluid Total Protein Vancomycin Trough Rheumatoid Factor Complement C4 Miscellaneous Test Crossmatch 09/20/16 09/20/16 09/20/16 05:40 11:52 16:50 WBC RBC Hgb Hct MCV MCH MCHC RDW Plt Count Lymph % (Auto) [place] % (Auto) Lymph # [place] # Baso # Seg Neutrophils % Seg Neuts % (Manual) Lymphocytes % (Manual) Monocytes % (Manual) Eosinophils % (Manual) Basophils % (Manual) Nucleated RBC % Seg Neutrophils # Seg Neutrophils # Man Lymphocytes # (Manual) Monocytes # (Manual) Eosinophils # (Manual) Basophils # (Manual) PT INR Fibrinogen dRVVT Confirm Interp Factor V Activity POC ABG pH POC ABG pCO2 POC ABG pO2 ABG pO2 ABG HCO3 ABG Base Excess ABG Hemoglobin Oxyhemoglobin Sodium Potassium Chloride Carbon Dioxide BUN Creatinine Glucose POC Glucose 131 H 183 H 236 H Lactic Acid Calcium Phosphorus Magnesium Direct Bilirubin AST ALT Alkaline Phosphatase Lactate Dehydrogenase Troponin T C-Reactive Protein Total Protein Albumin Prealbumin Triglycerides Cholesterol LDL Cholesterol Direct HDL Cholesterol Urine pH Urine WBC (Auto) Urine Creatinine Urine Total Protein Fluid Total Protein Vancomycin Trough Rheumatoid Factor Complement C4 Miscellaneous Test Crossmatch 09/20/16 09/21/16 09/21/16 23:51 03:30 04:44 WBC RBC Hgb Hct MCV MCH MCHC RDW Plt Count Lymph % (Auto) [place] % (Auto) Lymph # [place] # Baso # Seg Neutrophils % Seg Neuts % (Manual) Lymphocytes % (Manual) Monocytes % (Manual) Eosinophils % (Manual) Basophils % (Manual) Nucleated RBC % Seg Neutrophils # Seg Neutrophils # Man Lymphocytes # (Manual) Monocytes # (Manual) Eosinophils # (Manual) Basophils # (Manual) PT INR Fibrinogen dRVVT Confirm Interp Factor V Activity POC ABG pH POC ABG pCO2 POC ABG pO2 ABG pO2 ABG HCO3 ABG Base Excess ABG Hemoglobin Oxyhemoglobin Sodium Potassium Chloride Carbon Dioxide BUN Creatinine Glucose POC Glucose 114 H 141 H Lactic Acid Calcium Phosphorus Magnesium 2.70 H Direct Bilirubin AST ALT Alkaline Phosphatase Lactate Dehydrogenase Troponin T C-Reactive Protein Total Protein Albumin Prealbumin Triglycerides Cholesterol LDL Cholesterol Direct HDL Cholesterol Urine pH Urine WBC (Auto) Urine Creatinine Urine Total Protein Fluid Total Protein Vancomycin Trough Rheumatoid Factor Complement C4 Miscellaneous Test Crossmatch 09/21/16 09/21/16 09/21/16 07:45 07:45 10:01 WBC 13.8 H RBC 2.94 L Hgb 7.5 L Hct 23.5 L MCV MCH 26 L MCHC RDW 21.2 H Plt Count Lymph % (Auto) 6.9 L [place] % (Auto) 9.4 H Lymph # 0.9 L [place] # 1.3 H Baso # Seg Neutrophils % 83.2 H Seg Neuts % (Manual) Lymphocytes % (Manual) Monocytes % (Manual) Eosinophils % (Manual) Basophils % (Manual) Nucleated RBC % Seg Neutrophils # 11.5 H Seg Neutrophils # Man Lymphocytes # (Manual) Monocytes # (Manual) Eosinophils # (Manual) Basophils # (Manual) PT INR Fibrinogen dRVVT Confirm Interp Factor V Activity POC ABG pH 7.308 L POC ABG pCO2 31.9 L POC ABG pO2 148 H ABG pO2 ABG HCO3 ABG Base Excess ABG Hemoglobin Oxyhemoglobin Sodium 147 H Potassium Chloride 114.2 H Carbon Dioxide 15 L BUN 120 H Creatinine 3.9 H Glucose 156 H POC Glucose Lactic Acid Calcium 8.2 L Phosphorus Magnesium Direct Bilirubin AST ALT Alkaline Phosphatase Lactate Dehydrogenase Troponin T C-Reactive Protein Total Protein Albumin Prealbumin Triglycerides Cholesterol LDL Cholesterol Direct HDL Cholesterol Urine pH Urine WBC (Auto) Urine Creatinine Urine Total Protein Fluid Total Protein Vancomycin Trough Rheumatoid Factor Complement C4 Miscellaneous Test Crossmatch 09/21/16 09/21/16 09/21/16 12:00 12:03 13:00 WBC RBC Hgb Hct MCV MCH MCHC RDW Plt Count Lymph % (Auto) [place] % (Auto) Lymph # [place] # Baso # Seg Neutrophils % Seg Neuts % (Manual) Lymphocytes % (Manual) Monocytes % (Manual) Eosinophils % (Manual) Basophils % (Manual) Nucleated RBC % Seg Neutrophils # Seg Neutrophils # Man Lymphocytes # (Manual) Monocytes # (Manual) Eosinophils # (Manual) Basophils # (Manual) PT INR Fibrinogen dRVVT Confirm Interp Factor V Activity POC ABG pH POC ABG pCO2 POC ABG pO2 ABG pO2 ABG HCO3 ABG Base Excess ABG Hemoglobin Oxyhemoglobin Sodium Potassium Chloride Carbon Dioxide BUN Creatinine Glucose POC Glucose 163 H Lactic Acid Calcium Phosphorus Magnesium Direct Bilirubin AST ALT Alkaline Phosphatase Lactate Dehydrogenase Troponin T C-Reactive Protein Total Protein Albumin Prealbumin Triglycerides Cholesterol LDL Cholesterol Direct HDL Cholesterol Urine pH Urine WBC (Auto) Urine Creatinine 54.8 H Urine Total Protein Fluid Total Protein Vancomycin Trough 2.3 L Rheumatoid Factor Complement C4 Miscellaneous Test Crossmatch 09/21/16 09/21/16 09/22/16 16:51 23:17 06:27 WBC RBC Hgb Hct MCV MCH MCHC RDW Plt Count Lymph % (Auto) [place] % (Auto) Lymph # [place] # Baso # Seg Neutrophils % Seg Neuts % (Manual) Lymphocytes % (Manual) Monocytes % (Manual) Eosinophils % (Manual) Basophils % (Manual) Nucleated RBC % Seg Neutrophils # Seg Neutrophils # Man Lymphocytes # (Manual) Monocytes # (Manual) Eosinophils # (Manual) Basophils # (Manual) PT INR Fibrinogen dRVVT Confirm Interp Factor V Activity POC ABG pH POC ABG pCO2 POC ABG pO2 ABG pO2 ABG HCO3 ABG Base Excess ABG Hemoglobin Oxyhemoglobin Sodium Potassium Chloride Carbon Dioxide BUN Creatinine Glucose POC Glucose 206 H 114 H 115 H Lactic Acid Calcium Phosphorus Magnesium Direct Bilirubin AST ALT Alkaline Phosphatase Lactate Dehydrogenase Troponin T C-Reactive Protein Total Protein Albumin Prealbumin Triglycerides Cholesterol LDL Cholesterol Direct HDL Cholesterol Urine pH Urine WBC (Auto) Urine Creatinine Urine Total Protein Fluid Total Protein Vancomycin Trough Rheumatoid Factor Complement C4 Miscellaneous Test Crossmatch 09/22/16 09/22/16 09/22/16 07:50 07:50 12:00 WBC 17.8 H RBC 3.04 L Hgb 8.0 L Hct 24.7 L MCV MCH 26 L MCHC RDW 21.6 H Plt Count Lymph % (Auto) [place] % (Auto) Lymph # [place] # Baso # Seg Neutrophils % Seg Neuts % (Manual) Lymphocytes % (Manual) Monocytes % (Manual) Eosinophils % (Manual) Basophils % (Manual) Nucleated RBC % Seg Neutrophils # Seg Neutrophils # Man Lymphocytes # (Manual) Monocytes # (Manual) Eosinophils # (Manual) Basophils # (Manual) PT INR Fibrinogen dRVVT Confirm Interp Factor V Activity POC ABG pH POC ABG pCO2 POC ABG pO2 ABG pO2 ABG HCO3 ABG Base Excess ABG Hemoglobin Oxyhemoglobin Sodium 150 H Potassium Chloride 118.2 H Carbon Dioxide 14 L BUN 111 H Creatinine 3.7 H Glucose 157 H POC Glucose 183 H Lactic Acid Calcium Phosphorus Magnesium Direct Bilirubin AST ALT Alkaline Phosphatase Lactate Dehydrogenase Troponin T C-Reactive Protein Total Protein Albumin Prealbumin Triglycerides Cholesterol LDL Cholesterol Direct HDL Cholesterol Urine pH Urine WBC (Auto) Urine Creatinine Urine Total Protein Fluid Total Protein Vancomycin Trough Rheumatoid Factor Complement C4 Miscellaneous Test Crossmatch 09/22/16 09/22/16 09/23/16 17:29 23:10 05:00 WBC 19.2 H RBC 3.13 L Hgb 8.0 L Hct 25.2 L MCV MCH 26 L MCHC RDW 22.1 H Plt Count Lymph % (Auto) [place] % (Auto) Lymph # [place] # Baso # Seg Neutrophils % Seg Neuts % (Manual) 92.0 H Lymphocytes % (Manual) 3.0 L Monocytes % (Manual) Eosinophils % (Manual) Basophils % (Manual) Nucleated RBC % Seg Neutrophils # Seg Neutrophils # Man 17.7 H Lymphocytes # (Manual) 0.6 L Monocytes # (Manual) Eosinophils # (Manual) Basophils # (Manual) PT INR Fibrinogen dRVVT Confirm Interp Factor V Activity POC ABG pH POC ABG pCO2 POC ABG pO2 ABG pO2 ABG HCO3 ABG Base Excess ABG Hemoglobin Oxyhemoglobin Sodium Potassium Chloride Carbon Dioxide BUN Creatinine Glucose POC Glucose 197 H 169 H Lactic Acid Calcium Phosphorus Magnesium Direct Bilirubin AST ALT Alkaline Phosphatase Lactate Dehydrogenase Troponin T C-Reactive Protein Total Protein Albumin Prealbumin Triglycerides Cholesterol LDL Cholesterol Direct HDL Cholesterol Urine pH Urine WBC (Auto) Urine Creatinine Urine Total Protein Fluid Total Protein Vancomycin Trough Rheumatoid Factor Complement C4 Miscellaneous Test Crossmatch 09/23/16 09/23/1617 05:00 05:00 05:10 WBC RBC Hgb Hct MCV MCH MCHC RDW Plt Count Lymph % (Auto) [place] % (Auto) Lymph # [place] # Baso # Seg Neutrophils % Seg Neuts % (Manual) Lymphocytes % (Manual) Monocytes % (Manual) Eosinophils % (Manual) Basophils % (Manual) Nucleated RBC % Seg Neutrophils # Seg Neutrophils # Man Lymphocytes # (Manual) Monocytes # (Manual) Eosinophils # (Manual) Basophils # (Manual) PT INR Fibrinogen dRVVT Confirm Interp Factor V Activity POC ABG pH POC ABG pCO2 POC ABG pO2 ABG pO2 ABG HCO3 ABG Base Excess ABG Hemoglobin Oxyhemoglobin Sodium 147 H Potassium 3.2 L Chloride 115.7 H Carbon Dioxide 13 L BUN 111 H Creatinine 3.8 H Glucose 194 H POC Glucose 188 H Lactic Acid Calcium 7.3 L D Phosphorus Magnesium Direct Bilirubin AST ALT Alkaline Phosphatase Lactate Dehydrogenase Troponin T C-Reactive Protein 3.20 H Total Protein Albumin Prealbumin Triglycerides Cholesterol LDL Cholesterol Direct HDL Cholesterol Urine pH Urine WBC (Auto) Urine Creatinine Urine Total Protein Fluid Total Protein Vancomycin Trough Rheumatoid Factor Complement C4 Miscellaneous Test Crossmatch 09/23/16 09/23/16 09/23/16 11:37 12:29 18:01 WBC RBC Hgb Hct MCV MCH MCHC RDW Plt Count Lymph % (Auto) [place] % (Auto) Lymph # [place] # Baso # Seg Neutrophils % Seg Neuts % (Manual) Lymphocytes % (Manual) Monocytes % (Manual) Eosinophils % (Manual) Basophils % (Manual) Nucleated RBC % Seg Neutrophils # Seg Neutrophils # Man Lymphocytes # (Manual) Monocytes # (Manual) Eosinophils # (Manual) Basophils # (Manual) PT INR Fibrinogen dRVVT Confirm Interp Factor V Activity POC ABG pH POC ABG pCO2 18.9 L POC ABG pO2 143 H ABG pO2 ABG HCO3 ABG Base Excess ABG Hemoglobin Oxyhemoglobin Sodium Potassium Chloride Carbon Dioxide BUN Creatinine Glucose POC Glucose 153 H 108 H Lactic Acid Calcium Phosphorus Magnesium Direct Bilirubin AST ALT Alkaline Phosphatase Lactate Dehydrogenase Troponin T C-Reactive Protein Total Protein Albumin Prealbumin Triglycerides Cholesterol LDL Cholesterol Direct HDL Cholesterol Urine pH Urine WBC (Auto) Urine Creatinine Urine Total Protein Fluid Total Protein Vancomycin Trough Rheumatoid Factor Complement C4 Miscellaneous Test Crossmatch 09/23/16 09/23/16 09/24/16 21:19 23:43 05:16 WBC RBC Hgb Hct MCV MCH MCHC RDW Plt Count Lymph % (Auto) [place] % (Auto) Lymph # [place] # Baso # Seg Neutrophils % Seg Neuts % (Manual) Lymphocytes % (Manual) Monocytes % (Manual) Eosinophils % (Manual) Basophils % (Manual) Nucleated RBC % Seg Neutrophils # Seg Neutrophils # Man Lymphocytes # (Manual) Monocytes # (Manual) Eosinophils # (Manual) Basophils # (Manual) PT INR Fibrinogen dRVVT Confirm Interp Factor V Activity POC ABG pH POC ABG pCO2 17.3 L POC ABG pO2 112 H ABG pO2 ABG HCO3 ABG Base Excess ABG Hemoglobin Oxyhemoglobin Sodium Potassium Chloride Carbon Dioxide BUN Creatinine Glucose POC Glucose 143 H 164 H Lactic Acid Calcium Phosphorus Magnesium Direct Bilirubin AST ALT Alkaline Phosphatase Lactate Dehydrogenase Troponin T C-Reactive Protein Total Protein Albumin Prealbumin Triglycerides Cholesterol LDL Cholesterol Direct HDL Cholesterol Urine pH Urine WBC (Auto) Urine Creatinine Urine Total Protein Fluid Total Protein Vancomycin Trough Rheumatoid Factor Complement C4 Miscellaneous Test Crossmatch 09/24/16 09/24/16 09/24/16 05:21 11:58 17:06 WBC RBC Hgb Hct MCV MCH MCHC RDW Plt Count Lymph % (Auto) [place] % (Auto) Lymph # [place] # Baso # Seg Neutrophils % Seg Neuts % (Manual) Lymphocytes % (Manual) Monocytes % (Manual) Eosinophils % (Manual) Basophils % (Manual) Nucleated RBC % Seg Neutrophils # Seg Neutrophils # Man Lymphocytes # (Manual) Monocytes # (Manual) Eosinophils # (Manual) Basophils # (Manual) PT INR Fibrinogen dRVVT Confirm Interp Factor V Activity POC ABG pH POC ABG pCO2 POC ABG pO2 ABG pO2 ABG HCO3 ABG Base Excess ABG Hemoglobin Oxyhemoglobin Sodium Potassium Chloride Carbon Dioxide 10 L BUN 103 H Creatinine 4.3 H Glucose 163 H POC Glucose 173 H 167 H Lactic Acid Calcium 6.5 L Phosphorus Magnesium Direct Bilirubin AST ALT Alkaline Phosphatase Lactate Dehydrogenase Troponin T C-Reactive Protein Total Protein Albumin Prealbumin Triglycerides Cholesterol LDL Cholesterol Direct HDL Cholesterol Urine pH Urine WBC (Auto) Urine Creatinine Urine Total Protein Fluid Total Protein Vancomycin Trough Rheumatoid Factor Complement C4 Miscellaneous Test Crossmatch 09/24/16 09/24/16 09/24/16 20:15 21:02 23:48 WBC RBC Hgb Hct MCV MCH MCHC RDW Plt Count Lymph % (Auto) [place] % (Auto) Lymph # [place] # Baso # Seg Neutrophils % Seg Neuts % (Manual) Lymphocytes % (Manual) Monocytes % (Manual) Eosinophils % (Manual) Basophils % (Manual) Nucleated RBC % Seg Neutrophils # Seg Neutrophils # Man Lymphocytes # (Manual) Monocytes # (Manual) Eosinophils # (Manual) Basophils # (Manual) PT INR Fibrinogen dRVVT Confirm Interp Factor V Activity POC ABG pH 7.288 L POC ABG pCO2 30.2 L 21.5 L POC ABG pO2 32 L 39 L ABG pO2 ABG HCO3 ABG Base Excess ABG Hemoglobin Oxyhemoglobin Sodium Potassium Chloride Carbon Dioxide BUN Creatinine Glucose POC Glucose 109 H Lactic Acid Calcium Phosphorus Magnesium Direct Bilirubin AST ALT Alkaline Phosphatase Lactate Dehydrogenase Troponin T C-Reactive Protein Total Protein Albumin Prealbumin Triglycerides Cholesterol LDL Cholesterol Direct HDL Cholesterol Urine pH Urine WBC (Auto) Urine Creatinine Urine Total Protein Fluid Total Protein Vancomycin Trough Rheumatoid Factor Complement C4 Miscellaneous Test Crossmatch 09/25/16 09/25/16 09/25/16 04:20 04:20 04:20 WBC RBC 2.58 L Hgb 7.0 L Hct 21.0 L MCV MCH 27 L MCHC RDW 23.8 H Plt Count Lymph % (Auto) [place] % (Auto) Lymph # [place] # Baso # Seg Neutrophils % Seg Neuts % (Manual) Lymphocytes % (Manual) 12.0 L Monocytes % (Manual) Eosinophils % (Manual) 7.0 H Basophils % (Manual) 2.0 H Nucleated RBC % Seg Neutrophils # Seg Neutrophils # Man Lymphocytes # (Manual) 0.9 L Monocytes # (Manual) Eosinophils # (Manual) 0.5 H Basophils # (Manual) PT INR Fibrinogen dRVVT Confirm Interp Factor V Activity POC ABG pH POC ABG pCO2 POC ABG pO2 ABG pO2 ABG HCO3 ABG Base Excess ABG Hemoglobin Oxyhemoglobin Sodium Potassium Chloride Carbon Dioxide 15 L BUN 72 H Creatinine 3.8 H Glucose POC Glucose Lactic Acid Calcium 6.0 L Phosphorus 4.60 H Magnesium 1.60 L Direct Bilirubin AST ALT Alkaline Phosphatase Lactate Dehydrogenase Troponin T C-Reactive Protein Total Protein Albumin Prealbumin Triglycerides Cholesterol LDL Cholesterol Direct HDL Cholesterol Urine pH Urine WBC (Auto) Urine Creatinine Urine Total Protein Fluid Total Protein Vancomycin Trough Rheumatoid Factor Complement C4 Miscellaneous Test Crossmatch 09/25/16 09/25/16 09/25/16 04:57 08:02 10:30 WBC RBC Hgb Hct MCV MCH MCHC RDW Plt Count Lymph % (Auto) [place] % (Auto) Lymph # [place] # Baso # Seg Neutrophils % Seg Neuts % (Manual) Lymphocytes % (Manual) Monocytes % (Manual) Eosinophils % (Manual) Basophils % (Manual) Nucleated RBC % Seg Neutrophils # Seg Neutrophils # Man Lymphocytes # (Manual) Monocytes # (Manual) Eosinophils # (Manual) Basophils # (Manual) PT INR Fibrinogen dRVVT Confirm Interp Factor V Activity POC ABG pH POC ABG pCO2 24.7 L POC ABG pO2 152 H ABG pO2 ABG HCO3 ABG Base Excess ABG Hemoglobin Oxyhemoglobin Sodium Potassium Chloride Carbon Dioxide BUN Creatinine Glucose POC Glucose 113 H Lactic Acid Calcium Phosphorus Magnesium Direct Bilirubin AST ALT Alkaline Phosphatase Lactate Dehydrogenase Troponin T C-Reactive Protein Total Protein Albumin Prealbumin Triglycerides Cholesterol LDL Cholesterol Direct HDL Cholesterol Urine pH Urine WBC (Auto) Urine Creatinine Urine Total Protein Fluid Total Protein Vancomycin Trough Rheumatoid Factor Complement C4 Miscellaneous Test Crossmatch See Detail 09/25/16 09/25/16 09/25/16 12:05 17:44 23:47 WBC RBC Hgb Hct MCV MCH MCHC RDW Plt Count Lymph % (Auto) [place] % (Auto) Lymph # [place] # Baso # Seg Neutrophils % Seg Neuts % (Manual) Lymphocytes % (Manual) Monocytes % (Manual) Eosinophils % (Manual) Basophils % (Manual) Nucleated RBC % Seg Neutrophils # Seg Neutrophils # Man Lymphocytes # (Manual) Monocytes # (Manual) Eosinophils # (Manual) Basophils # (Manual) PT INR Fibrinogen dRVVT Confirm Interp Factor V Activity POC ABG pH POC ABG pCO2 POC ABG pO2 ABG pO2 ABG HCO3 ABG Base Excess ABG Hemoglobin Oxyhemoglobin Sodium Potassium Chloride Carbon Dioxide BUN Creatinine Glucose POC Glucose 117 H 119 H 150 H Lactic Acid Calcium Phosphorus Magnesium Direct Bilirubin AST ALT Alkaline Phosphatase Lactate Dehydrogenase Troponin T C-Reactive Protein Total Protein Albumin Prealbumin Triglycerides Cholesterol LDL Cholesterol Direct HDL Cholesterol Urine pH Urine WBC (Auto) Urine Creatinine Urine Total Protein Fluid Total Protein Vancomycin Trough Rheumatoid Factor Complement C4 Miscellaneous Test Crossmatch 09/26/16 09/26/16 09/26/16 04:25 04:25 04:25 WBC RBC 2.65 L Hgb 7.4 L Hct 21.6 L MCV MCH MCHC RDW 22.5 H Plt Count Lymph % (Auto) Barton % (Auto) Lymph # Barton # Baso # Seg Neutrophils % Seg Neuts % (Manual) Lymphocytes % (Manual) 6.0 L Monocytes % (Manual) Eosinophils % (Manual) 11.0 H Basophils % (Manual) Nucleated RBC % Seg Neutrophils # Seg Neutrophils # Man Lymphocytes # (Manual) 0.4 L Monocytes # (Manual) Eosinophils # (Manual) 0.6 H Basophils # (Manual) PT INR Fibrinogen dRVVT Confirm Interp Factor V Activity POC ABG pH POC ABG pCO2 POC ABG pO2 ABG pO2 ABG HCO3 ABG Base Excess ABG Hemoglobin Oxyhemoglobin Sodium Potassium Chloride 97.0 L Carbon Dioxide 19 L BUN 43 H Creatinine 2.6 H Glucose 130 H POC Glucose Lactic Acid 4.40 H* Calcium 6.7 L Phosphorus Magnesium Direct Bilirubin AST ALT Alkaline Phosphatase Lactate Dehydrogenase Troponin T C-Reactive Protein Total Protein Albumin Prealbumin Triglycerides Cholesterol LDL Cholesterol Direct HDL Cholesterol Urine pH Urine WBC (Auto) Urine Creatinine Urine Total Protein Fluid Total Protein Vancomycin Trough Rheumatoid Factor Complement C4 Miscellaneous Test Crossmatch 09/26/16 09/26/16 09/26/16 05:20 11:44 12:12 WBC RBC Hgb Hct MCV MCH MCHC RDW Plt Count Lymph % (Auto) [place] % (Auto) Lymph # [place] # Baso # Seg Neutrophils % Seg Neuts % (Manual) Lymphocytes % (Manual) Monocytes % (Manual) Eosinophils % (Manual) Basophils % (Manual) Nucleated RBC % Seg Neutrophils # Seg Neutrophils # Man Lymphocytes # (Manual) Monocytes # (Manual) Eosinophils # (Manual) Basophils # (Manual) PT INR Fibrinogen dRVVT Confirm Interp Factor V Activity POC ABG pH POC ABG pCO2 27.0 L POC ABG pO2 69 L ABG pO2 ABG HCO3 ABG Base Excess ABG Hemoglobin Oxyhemoglobin Sodium Potassium Chloride Carbon Dioxide BUN Creatinine Glucose POC Glucose 121 H 128 H Lactic Acid Calcium Phosphorus Magnesium Direct Bilirubin AST ALT Alkaline Phosphatase Lactate Dehydrogenase Troponin T C-Reactive Protein Total Protein Albumin Prealbumin Triglycerides Cholesterol LDL Cholesterol Direct HDL Cholesterol Urine pH Urine WBC (Auto) Urine Creatinine Urine Total Protein Fluid Total Protein Vancomycin Trough Rheumatoid Factor Complement C4 Miscellaneous Test Crossmatch 09/26/16 09/26/16 09/27/16 18:31 23:40 08:20 WBC RBC Hgb Hct MCV MCH MCHC RDW Plt Count Lymph % (Auto) [place] % (Auto) Lymph # [place] # Baso # Seg Neutrophils % Seg Neuts % (Manual) Lymphocytes % (Manual) Monocytes % (Manual) Eosinophils % (Manual) Basophils % (Manual) Nucleated RBC % Seg Neutrophils # Seg Neutrophils # Man Lymphocytes # (Manual) Monocytes # (Manual) Eosinophils # (Manual) Basophils # (Manual) PT INR Fibrinogen dRVVT Confirm Interp Factor V Activity POC ABG pH POC ABG pCO2 POC ABG pO2 ABG pO2 ABG HCO3 ABG Base Excess ABG Hemoglobin Oxyhemoglobin Sodium Potassium Chloride Carbon Dioxide BUN Creatinine Glucose POC Glucose 120 H 133 H Lactic Acid 4.10 H* Calcium Phosphorus Magnesium Direct Bilirubin AST ALT Alkaline Phosphatase Lactate Dehydrogenase Troponin T C-Reactive Protein Total Protein Albumin Prealbumin Triglycerides Cholesterol LDL Cholesterol Direct HDL Cholesterol Urine pH Urine WBC (Auto) Urine Creatinine Urine Total Protein Fluid Total Protein Vancomycin Trough Rheumatoid Factor Complement C4 Miscellaneous Test Crossmatch 09/27/16 09/27/16 09/27/16 11:23 15:00 18:15 WBC RBC Hgb Hct MCV MCH MCHC RDW Plt Count Lymph % (Auto) [place] % (Auto) Lymph # [place] # Baso # Seg Neutrophils % Seg Neuts % (Manual) Lymphocytes % (Manual) Monocytes % (Manual) Eosinophils % (Manual) Basophils % (Manual) Nucleated RBC % Seg Neutrophils # Seg Neutrophils # Man Lymphocytes # (Manual) Monocytes # (Manual) Eosinophils # (Manual) Basophils # (Manual) PT INR Fibrinogen dRVVT Confirm Interp Factor V Activity POC ABG pH 7.459 H POC ABG pCO2 27.1 L POC ABG pO2 140 H ABG pO2 ABG HCO3 ABG Base Excess ABG Hemoglobin Oxyhemoglobin Sodium Potassium Chloride Carbon Dioxide BUN Creatinine Glucose POC Glucose 114 H 127 H Lactic Acid Calcium Phosphorus Magnesium Direct Bilirubin AST ALT Alkaline Phosphatase Lactate Dehydrogenase Troponin T C-Reactive Protein Total Protein Albumin Prealbumin Triglycerides Cholesterol LDL Cholesterol Direct HDL Cholesterol Urine pH Urine WBC (Auto) Urine Creatinine Urine Total Protein Fluid Total Protein Vancomycin Trough Rheumatoid Factor Complement C4 Miscellaneous Test Crossmatch 09/27/16 09/27/16 09/28/16 Unknown Unknown 03:45 WBC RBC 2.49 L Hgb 6.8 L Hct 20.7 L MCV MCH 27 L MCHC RDW 22.1 H Plt Count Lymph % (Auto) [place] % (Auto) Lymph # [place] # Baso # Seg Neutrophils % Seg Neuts % (Manual) 32.0 L Lymphocytes % (Manual) 12.0 L Monocytes % (Manual) 11.0 H Eosinophils % (Manual) 10.0 H Basophils % (Manual) Nucleated RBC % Seg Neutrophils # Seg Neutrophils # Man Lymphocytes # (Manual) 1.0 L Monocytes # (Manual) 0.9 H Eosinophils # (Manual) 0.8 H Basophils # (Manual) PT INR Fibrinogen dRVVT Confirm Interp Factor V Activity POC ABG pH POC ABG pCO2 POC ABG pO2 ABG pO2 ABG HCO3 ABG Base Excess ABG Hemoglobin Oxyhemoglobin Sodium 135 L 135 L Potassium 3.5 L Chloride 93.6 L 94.4 L Carbon Dioxide 17 L 21 L BUN 45 H 28 H Creatinine 3.3 H 2.5 H Glucose 106 H POC Glucose Lactic Acid Calcium 7.3 L 7.1 L Phosphorus Magnesium Direct Bilirubin AST ALT Alkaline Phosphatase Lactate Dehydrogenase Troponin T C-Reactive Protein Total Protein Albumin Prealbumin Triglycerides Cholesterol LDL Cholesterol Direct HDL Cholesterol Urine pH Urine WBC (Auto) Urine Creatinine Urine Total Protein Fluid Total Protein Vancomycin Trough Rheumatoid Factor Complement C4 Miscellaneous Test Crossmatch 09/28/16 09/28/16 09/28/16 03:45 07:25 11:58 WBC 13.3 H RBC 3.01 L Hgb 8.4 L Hct 25.0 L MCV MCH MCHC RDW 20.5 H Plt Count 128 L Lymph % (Auto) [place] % (Auto) Lymph # [place] # Baso # Seg Neutrophils % Seg Neuts % (Manual) Lymphocytes % (Manual) 7.0 L Monocytes % (Manual) Eosinophils % (Manual) 6.0 H Basophils % (Manual) Nucleated RBC % Seg Neutrophils # Seg Neutrophils # Man Lymphocytes # (Manual) 0.9 L Monocytes # (Manual) Eosinophils # (Manual) 0.8 H Basophils # (Manual) PT INR Fibrinogen dRVVT Confirm Interp Factor V Activity POC ABG pH POC ABG pCO2 POC ABG pO2 ABG pO2 ABG HCO3 ABG Base Excess ABG Hemoglobin Oxyhemoglobin Sodium Potassium Chloride Carbon Dioxide BUN Creatinine Glucose POC Glucose 121 H Lactic Acid 4.50 H* Calcium Phosphorus Magnesium Direct Bilirubin AST ALT Alkaline Phosphatase Lactate Dehydrogenase Troponin T C-Reactive Protein Total Protein Albumin Prealbumin Triglycerides Cholesterol LDL Cholesterol Direct HDL Cholesterol Urine pH Urine WBC (Auto) Urine Creatinine Urine Total Protein Fluid Total Protein Vancomycin Trough Rheumatoid Factor Complement C4 Miscellaneous Test Crossmatch 09/29/16 09/29/1609/29/17 06:45 06:45 06:45 WBC 14.9 H RBC 2.74 L Hgb 7.6 L Hct 23.2 L MCV MCH MCHC RDW 20.5 H Plt Count 81 L Lymph % (Auto) [place] % (Auto) Lymph # [place] # Baso # Seg Neutrophils % Seg Neuts % (Manual) 81.0 H Lymphocytes % (Manual) 4.0 L Monocytes % (Manual) Eosinophils % (Manual) Basophils % (Manual) Nucleated RBC % Seg Neutrophils # Seg Neutrophils # Man 12.1 H Lymphocytes # (Manual) 0.6 L Monocytes # (Manual) Eosinophils # (Manual) Basophils # (Manual) PT INR Fibrinogen dRVVT Confirm Interp Factor V Activity POC ABG pH POC ABG pCO2 POC ABG pO2 ABG pO2 ABG HCO3 ABG Base Excess ABG Hemoglobin Oxyhemoglobin Sodium 133 L Potassium 3.4 L Chloride 92.5 L Carbon Dioxide 21 L BUN 33 H Creatinine 3.0 H Glucose POC Glucose Lactic Acid Calcium 6.6 L Phosphorus Magnesium 1.40 L Direct Bilirubin 0.9 H AST ALT Alkaline Phosphatase Lactate Dehydrogenase Troponin T C-Reactive Protein Total Protein 4.3 L Albumin 1.3 L Prealbumin Triglycerides Cholesterol LDL Cholesterol Direct HDL Cholesterol Urine pH Urine WBC (Auto) Urine Creatinine Urine Total Protein Fluid Total Protein Vancomycin Trough Rheumatoid Factor Complement C4 Miscellaneous Test Crossmatch 09/29/16 09/29/16 09/30/16 17:52 20:12 00:07 WBC RBC Hgb Hct MCV MCH MCHC RDW Plt Count Lymph % (Auto) [place] % (Auto) Lymph # [place] # Baso # Seg Neutrophils % Seg Neuts % (Manual) Lymphocytes % (Manual) Monocytes % (Manual) Eosinophils % (Manual) Basophils % (Manual) Nucleated RBC % Seg Neutrophils # Seg Neutrophils # Man Lymphocytes # (Manual) Monocytes # (Manual) Eosinophils # (Manual) Basophils # (Manual) PT INR Fibrinogen dRVVT Confirm Interp Factor V Activity POC ABG pH POC ABG pCO2 POC ABG pO2 ABG pO2 ABG HCO3 ABG Base Excess ABG Hemoglobin Oxyhemoglobin Sodium Potassium Chloride Carbon Dioxide BUN Creatinine Glucose POC Glucose 50 L 51 L Lactic Acid Calcium Phosphorus Magnesium Direct Bilirubin AST ALT Alkaline Phosphatase Lactate Dehydrogenase Troponin T 0.204 H* C-Reactive Protein Total Protein Albumin Prealbumin Triglycerides Cholesterol 31 L LDL Cholesterol Direct 4 L HDL Cholesterol 3 L Urine pH Urine WBC (Auto) Urine Creatinine Urine Total Protein Fluid Total Protein Vancomycin Trough Rheumatoid Factor Complement C4 Miscellaneous Test Crossmatch 09/30/16 09/30/16 09/30/16 01:30 05:15 06:10 WBC RBC Hgb Hct MCV MCH MCHC RDW Plt Count Lymph % (Auto) [place] % (Auto) Lymph # [place] # Baso # Seg Neutrophils % Seg Neuts % (Manual) Lymphocytes % (Manual) Monocytes % (Manual) Eosinophils % (Manual) Basophils % (Manual) Nucleated RBC % Seg Neutrophils # Seg Neutrophils # Man Lymphocytes # (Manual) Monocytes # (Manual) Eosinophils # (Manual) Basophils # (Manual) PT INR Fibrinogen dRVVT Confirm Interp Factor V Activity POC ABG pH POC ABG pCO2 POC ABG pO2 ABG pO2 ABG HCO3 ABG Base Excess ABG Hemoglobin Oxyhemoglobin Sodium 133 L Potassium 3.2 L Chloride 93.2 L Carbon Dioxide 19 L BUN 36 H Creatinine 3.2 H Glucose 104 H POC Glucose 167 H 146 H Lactic Acid Calcium 6.4 L Phosphorus Magnesium 1.60 L Direct Bilirubin AST ALT Alkaline Phosphatase Lactate Dehydrogenase Troponin T C-Reactive Protein Total Protein Albumin Prealbumin Triglycerides Cholesterol LDL Cholesterol Direct HDL Cholesterol Urine pH Urine WBC (Auto) Urine Creatinine Urine Total Protein Fluid Total Protein Vancomycin Trough Rheumatoid Factor Complement C4 Miscellaneous Test Crossmatch 09/30/16 09/30/16 09/30/16 11:26 13:39 18:38 WBC RBC Hgb Hct MCV MCH MCHC RDW Plt Count Lymph % (Auto) [place] % (Auto) Lymph # [place] # Baso # Seg Neutrophils % Seg Neuts % (Manual) Lymphocytes % (Manual) Monocytes % (Manual) Eosinophils % (Manual) Basophils % (Manual) Nucleated RBC % Seg Neutrophils # Seg Neutrophils # Man Lymphocytes # (Manual) Monocytes # (Manual) Eosinophils # (Manual) Basophils # (Manual) PT INR Fibrinogen dRVVT Confirm Interp Factor V Activity POC ABG pH 7.479 H POC ABG pCO2 29.8 L POC ABG pO2 117 H ABG pO2 ABG HCO3 ABG Base Excess ABG Hemoglobin Oxyhemoglobin Sodium Potassium Chloride Carbon Dioxide BUN Creatinine Glucose POC Glucose 140 H 122 H Lactic Acid Calcium Phosphorus Magnesium Direct Bilirubin AST ALT Alkaline Phosphatase Lactate Dehydrogenase Troponin T C-Reactive Protein Total Protein Albumin Prealbumin Triglycerides Cholesterol LDL Cholesterol Direct HDL Cholesterol Urine pH Urine WBC (Auto) Urine Creatinine Urine Total Protein Fluid Total Protein Vancomycin Trough Rheumatoid Factor Complement C4 Miscellaneous Test Crossmatch 10/01/16 10/01/16 10/01/16 06:00 06:00 12:37 WBC 12.6 H RBC 2.75 L Hgb 7.3 L Hct 23.3 L MCV MCH 27 L MCHC RDW 20.6 H Plt Count 72 L Lymph % (Auto) [place] % (Auto) Lymph # [place] # Baso # Seg Neutrophils % Seg Neuts % (Manual) 31.0 L Lymphocytes % (Manual) 8.0 L Monocytes % (Manual) Eosinophils % (Manual) Basophils % (Manual) Nucleated RBC % 3.0 H Seg Neutrophils # Seg Neutrophils # Man Lymphocytes # (Manual) 1.0 L Monocytes # (Manual) Eosinophils # (Manual) Basophils # (Manual) PT INR Fibrinogen dRVVT Confirm Interp Factor V Activity POC ABG pH POC ABG pCO2 POC ABG pO2 ABG pO2 ABG HCO3 ABG Base Excess ABG Hemoglobin Oxyhemoglobin Sodium 127 L Potassium Chloride 86.8 L Carbon Dioxide 20 L BUN 42 H Creatinine 3.5 H Glucose POC Glucose 65 L Lactic Acid Calcium 7.0 L Phosphorus Magnesium Direct Bilirubin AST ALT Alkaline Phosphatase Lactate Dehydrogenase Troponin T C-Reactive Protein Total Protein Albumin Prealbumin Triglycerides Cholesterol LDL Cholesterol Direct HDL Cholesterol Urine pH Urine WBC (Auto) Urine Creatinine Urine Total Protein Fluid Total Protein Vancomycin Trough Rheumatoid Factor Complement C4 Miscellaneous Test Crossmatch 10/01/16 10/01/16 10/02/16 17:39 23:32 00:59 WBC RBC Hgb Hct MCV MCH MCHC RDW Plt Count Lymph % (Auto) [place] % (Auto) Lymph # [place] # Baso # Seg Neutrophils % Seg Neuts % (Manual) Lymphocytes % (Manual) Monocytes % (Manual) Eosinophils % (Manual) Basophils % (Manual) Nucleated RBC % Seg Neutrophils # Seg Neutrophils # Man Lymphocytes # (Manual) Monocytes # (Manual) Eosinophils # (Manual) Basophils # (Manual) PT INR Fibrinogen dRVVT Confirm Interp Factor V Activity POC ABG pH POC ABG pCO2 POC ABG pO2 ABG pO2 ABG HCO3 ABG Base Excess ABG Hemoglobin Oxyhemoglobin Sodium Potassium Chloride Carbon Dioxide BUN Creatinine Glucose POC Glucose 107 H 52 L 145 H Lactic Acid Calcium Phosphorus Magnesium Direct Bilirubin AST ALT Alkaline Phosphatase Lactate Dehydrogenase Troponin T C-Reactive Protein Total Protein Albumin Prealbumin Triglycerides Cholesterol LDL Cholesterol Direct HDL Cholesterol Urine pH Urine WBC (Auto) Urine Creatinine Urine Total Protein Fluid Total Protein Vancomycin Trough Rheumatoid Factor Complement C4 Miscellaneous Test Crossmatch 10/02/16 10/02/16 10/02/16 10:30 10:50 10:50 WBC 14.7 H RBC 2.76 L Hgb 7.4 L Hct 23.6 L MCV MCH 27 L MCHC RDW 20.2 H Plt Count 79 L Lymph % (Auto) [place] % (Auto) Lymph # [place] # Baso # Seg Neutrophils % Seg Neuts % (Manual) 86.0 H Lymphocytes % (Manual) 6.0 L Monocytes % (Manual) Eosinophils % (Manual) Basophils % (Manual) Nucleated RBC % Seg Neutrophils # Seg Neutrophils # Man 12.6 H Lymphocytes # (Manual) 0.9 L Monocytes # (Manual) Eosinophils # (Manual) Basophils # (Manual) PT INR Fibrinogen dRVVT Confirm Interp Factor V Activity POC ABG pH 7.486 H POC ABG pCO2 30.1 L POC ABG pO2 108 H ABG pO2 ABG HCO3 ABG Base Excess ABG Hemoglobin Oxyhemoglobin Sodium 131 L Potassium 3.4 L Chloride 89.9 L Carbon Dioxide BUN 26 H Creatinine 2.6 H Glucose POC Glucose Lactic Acid Calcium 7.0 L Phosphorus Magnesium Direct Bilirubin AST ALT Alkaline Phosphatase Lactate Dehydrogenase Troponin T C-Reactive Protein Total Protein Albumin Prealbumin Triglycerides Cholesterol LDL Cholesterol Direct HDL Cholesterol Urine pH Urine WBC (Auto) Urine Creatinine Urine Total Protein Fluid Total Protein Vancomycin Trough Rheumatoid Factor Complement C4 Miscellaneous Test Crossmatch 10/02/16 10/03/16 10/03/16 23:45 00:45 05:10 WBC 12.9 H RBC 2.77 L Hgb 7.6 L Hct 23.7 L MCV MCH 27 L MCHC RDW 19.7 H Plt Count 89 L Lymph % (Auto) [place] % (Auto) Lymph # [place] # Baso # Seg Neutrophils % Seg Neuts % (Manual) Lymphocytes % (Manual) 8.0 L Monocytes % (Manual) Eosinophils % (Manual) Basophils % (Manual) Nucleated RBC % Seg Neutrophils # 11.9 H Seg Neutrophils # Man Lymphocytes # (Manual) 1.0 L Monocytes # (Manual) Eosinophils # (Manual) Basophils # (Manual) PT INR Fibrinogen dRVVT Confirm Interp Factor V Activity POC ABG pH POC ABG pCO2 POC ABG pO2 ABG pO2 ABG HCO3 ABG Base Excess ABG Hemoglobin Oxyhemoglobin Sodium Potassium Chloride Carbon Dioxide BUN Creatinine Glucose POC Glucose 55 L 199 H Lactic Acid Calcium Phosphorus Magnesium Direct Bilirubin AST ALT Alkaline Phosphatase Lactate Dehydrogenase Troponin T C-Reactive Protein Total Protein Albumin Prealbumin Triglycerides Cholesterol LDL Cholesterol Direct HDL Cholesterol Urine pH Urine WBC (Auto) Urine Creatinine Urine Total Protein Fluid Total Protein Vancomycin Trough Rheumatoid Factor Complement C4 Miscellaneous Test Crossmatch 10/03/16 10/03/16 10/03/16 05:10 12:14 13:18 WBC RBC Hgb Hct MCV MCH MCHC RDW Plt Count Lymph % (Auto) [place] % (Auto) Lymph # [place] # Baso # Seg Neutrophils % Seg Neuts % (Manual) Lymphocytes % (Manual) Monocytes % (Manual) Eosinophils % (Manual) Basophils % (Manual) Nucleated RBC % Seg Neutrophils # Seg Neutrophils # Man Lymphocytes # (Manual) Monocytes # (Manual) Eosinophils # (Manual) Basophils # (Manual) PT INR Fibrinogen dRVVT Confirm Interp Factor V Activity POC ABG pH POC ABG pCO2 POC ABG pO2 ABG pO2 ABG HCO3 ABG Base Excess ABG Hemoglobin Oxyhemoglobin Sodium 129 L Potassium 3.3 L Chloride 88.8 L Carbon Dioxide 20 L BUN 29 H Creatinine 2.8 H Glucose POC Glucose 68 L 127 H Lactic Acid Calcium 7.2 L Phosphorus Magnesium Direct Bilirubin AST ALT Alkaline Phosphatase Lactate Dehydrogenase Troponin T C-Reactive Protein Total Protein Albumin Prealbumin Triglycerides Cholesterol LDL Cholesterol Direct HDL Cholesterol Urine pH Urine WBC (Auto) Urine Creatinine Urine Total Protein Fluid Total Protein Vancomycin Trough Rheumatoid Factor Complement C4 Miscellaneous Test Crossmatch 10/03/16 10/03/16 10/03/16 14:42 18:21 19:09 WBC RBC Hgb Hct MCV MCH MCHC RDW Plt Count Lymph % (Auto) [place] % (Auto) Lymph # [place] # Baso # Seg Neutrophils % Seg Neuts % (Manual) Lymphocytes % (Manual) Monocytes % (Manual) Eosinophils % (Manual) Basophils % (Manual) Nucleated RBC % Seg Neutrophils # Seg Neutrophils # Man Lymphocytes # (Manual) Monocytes # (Manual) Eosinophils # (Manual) Basophils # (Manual) PT INR Fibrinogen dRVVT Confirm Interp Factor V Activity POC ABG pH 7.499 H POC ABG pCO2 28.4 L POC ABG pO2 44 L ABG pO2 ABG HCO3 ABG Base Excess ABG Hemoglobin Oxyhemoglobin Sodium Potassium Chloride Carbon Dioxide BUN Creatinine Glucose POC Glucose 64 L 205 H Lactic Acid Calcium Phosphorus Magnesium Direct Bilirubin AST ALT Alkaline Phosphatase Lactate Dehydrogenase Troponin T C-Reactive Protein Total Protein Albumin Prealbumin Triglycerides Cholesterol LDL Cholesterol Direct HDL Cholesterol Urine pH Urine WBC (Auto) Urine Creatinine Urine Total Protein Fluid Total Protein Vancomycin Trough Rheumatoid Factor Complement C4 Miscellaneous Test Crossmatch 10/03/16 10/04/16 10/04/16 23:33 04:18 06:30 WBC RBC 2.54 L Hgb 7.1 L Hct 21.7 L MCV MCH MCHC RDW 19.5 H Plt Count 76 L Lymph % (Auto) [place] % (Auto) Lymph # [place] # Baso # Seg Neutrophils % Seg Neuts % (Manual) 88.0 H Lymphocytes % (Manual) 6.0 L Monocytes % (Manual) Eosinophils % (Manual) Basophils % (Manual) Nucleated RBC % Seg Neutrophils # Seg Neutrophils # Man 8.8 H Lymphocytes # (Manual) 0.6 L Monocytes # (Manual) Eosinophils # (Manual) Basophils # (Manual) PT INR Fibrinogen dRVVT Confirm Interp Factor V Activity POC ABG pH 7.461 H POC ABG pCO2 33.6 L POC ABG pO2 211 H ABG pO2 ABG HCO3 ABG Base Excess ABG Hemoglobin Oxyhemoglobin Sodium Potassium Chloride Carbon Dioxide BUN Creatinine Glucose POC Glucose 136 H Lactic Acid Calcium Phosphorus Magnesium Direct Bilirubin AST ALT Alkaline Phosphatase Lactate Dehydrogenase Troponin T C-Reactive Protein Total Protein Albumin Prealbumin Triglycerides Cholesterol LDL Cholesterol Direct HDL Cholesterol Urine pH Urine WBC (Auto) Urine Creatinine Urine Total Protein Fluid Total Protein Vancomycin Trough Rheumatoid Factor Complement C4 Miscellaneous Test Crossmatch 10/04/16 10/04/16 10/04/16 06:30 11:45 17:54 WBC RBC Hgb Hct MCV MCH MCHC RDW Plt Count Lymph % (Auto) [place] % (Auto) Lymph # [place] # Baso # Seg Neutrophils % Seg Neuts % (Manual) Lymphocytes % (Manual) Monocytes % (Manual) Eosinophils % (Manual) Basophils % (Manual) Nucleated RBC % Seg Neutrophils # Seg Neutrophils # Man Lymphocytes # (Manual) Monocytes # (Manual) Eosinophils # (Manual) Basophils # (Manual) PT INR Fibrinogen dRVVT Confirm Interp Factor V Activity POC ABG pH POC ABG pCO2 POC ABG pO2 ABG pO2 ABG HCO3 ABG Base Excess ABG Hemoglobin Oxyhemoglobin Sodium 128 L Potassium Chloride 87.4 L Carbon Dioxide 20 L BUN 34 H Creatinine 2.9 H Glucose 127 H POC Glucose 158 H 160 H Lactic Acid Calcium 7.4 L Phosphorus Magnesium Direct Bilirubin AST ALT Alkaline Phosphatase Lactate Dehydrogenase Troponin T C-Reactive Protein Total Protein Albumin Prealbumin Triglycerides Cholesterol LDL Cholesterol Direct HDL Cholesterol Urine pH Urine WBC (Auto) Urine Creatinine Urine Total Protein Fluid Total Protein Vancomycin Trough Rheumatoid Factor Complement C4 Miscellaneous Test Crossmatch 10/04/16 10/05/16 10/05/16 23:25 04:30 05:00 WBC RBC 2.64 L Hgb 7.5 L Hct 22.6 L MCV MCH MCHC RDW 19.3 H Plt Count 80 L Lymph % (Auto) [place] % (Auto) Lymph # [place] # Baso # Seg Neutrophils % Seg Neuts % (Manual) Lymphocytes % (Manual) 12.0 L Monocytes % (Manual) Eosinophils % (Manual) Basophils % (Manual) Nucleated RBC % Seg Neutrophils # Seg Neutrophils # Man Lymphocytes # (Manual) Monocytes # (Manual) Eosinophils # (Manual) Basophils # (Manual) PT INR Fibrinogen dRVVT Confirm Interp Factor V Activity POC ABG pH 7.475 H POC ABG pCO2 33.3 L POC ABG pO2 140 H ABG pO2 ABG HCO3 ABG Base Excess ABG Hemoglobin Oxyhemoglobin Sodium Potassium Chloride Carbon Dioxide BUN Creatinine Glucose POC Glucose 141 H Lactic Acid Calcium Phosphorus Magnesium Direct Bilirubin AST ALT Alkaline Phosphatase Lactate Dehydrogenase Troponin T C-Reactive Protein Total Protein Albumin Prealbumin Triglycerides Cholesterol LDL Cholesterol Direct HDL Cholesterol Urine pH Urine WBC (Auto) Urine Creatinine Urine Total Protein Fluid Total Protein Vancomycin Trough Rheumatoid Factor Complement C4 Miscellaneous Test Crossmatch 10/05/16 10/05/16 10/05/16 05:00 05:09 12:58 WBC RBC Hgb Hct MCV MCH MCHC RDW Plt Count Lymph % (Auto) [place] % (Auto) Lymph # [place] # Baso # Seg Neutrophils % Seg Neuts % (Manual) Lymphocytes % (Manual) Monocytes % (Manual) Eosinophils % (Manual) Basophils % (Manual) Nucleated RBC % Seg Neutrophils # Seg Neutrophils # Man Lymphocytes # (Manual) Monocytes # (Manual) Eosinophils # (Manual) Basophils # (Manual) PT INR Fibrinogen dRVVT Confirm Interp Factor V Activity POC ABG pH POC ABG pCO2 POC ABG pO2 ABG pO2 ABG HCO3 ABG Base Excess ABG Hemoglobin Oxyhemoglobin Sodium 131 L Potassium Chloride 94.0 L Carbon Dioxide 20 L BUN 22 H Creatinine 2.0 H Glucose 123 H POC Glucose 166 H 179 H Lactic Acid Calcium 7.7 L Phosphorus 2.20 L D Magnesium Direct Bilirubin AST ALT Alkaline Phosphatase Lactate Dehydrogenase Troponin T C-Reactive Protein Total Protein Albumin Prealbumin Triglycerides Cholesterol LDL Cholesterol Direct HDL Cholesterol Urine pH Urine WBC (Auto) Urine Creatinine Urine Total Protein Fluid Total Protein Vancomycin Trough Rheumatoid Factor Complement C4 Miscellaneous Test Crossmatch 10/05/16 10/05/16 10/05/16 15:50 18:53 23:12 WBC RBC Hgb Hct MCV MCH MCHC RDW Plt Count Lymph % (Auto) [place] % (Auto) Lymph # [place] # Baso # Seg Neutrophils % Seg Neuts % (Manual) Lymphocytes % (Manual) Monocytes % (Manual) Eosinophils % (Manual) Basophils % (Manual) Nucleated RBC % Seg Neutrophils # Seg Neutrophils # Man Lymphocytes # (Manual) Monocytes # (Manual) Eosinophils # (Manual) Basophils # (Manual) PT INR Fibrinogen dRVVT Confirm Interp Factor V Activity POC ABG pH POC ABG pCO2 POC ABG pO2 ABG pO2 ABG HCO3 ABG Base Excess ABG Hemoglobin Oxyhemoglobin Sodium Potassium Chloride Carbon Dioxide BUN Creatinine Glucose POC Glucose 150 H 164 H Lactic Acid Calcium Phosphorus Magnesium Direct Bilirubin AST ALT Alkaline Phosphatase Lactate Dehydrogenase Troponin T C-Reactive Protein Total Protein Albumin Prealbumin Triglycerides Cholesterol LDL Cholesterol Direct HDL Cholesterol Urine pH Urine WBC (Auto) Urine Creatinine Urine Total Protein Fluid Total Protein Vancomycin Trough Rheumatoid Factor Complement C4 Miscellaneous Test Crossmatch See Detail 10/06/16 10/06/16 10/06/16 03:50 03:50 04:53 WBC RBC 3.00 L Hgb 8.6 L Hct 25.8 L MCV MCH MCHC RDW 17.9 H Plt Count 65 L Lymph % (Auto) [place] % (Auto) Lymph # [place] # Baso # Seg Neutrophils % Seg Neuts % (Manual) 30.0 L Lymphocytes % (Manual) 5.0 L Monocytes % (Manual) Eosinophils % (Manual) Basophils % (Manual) Nucleated RBC % Seg Neutrophils # Seg Neutrophils # Man Lymphocytes # (Manual) 0.4 L Monocytes # (Manual) Eosinophils # (Manual) Basophils # (Manual) PT INR Fibrinogen dRVVT Confirm Interp Factor V Activity POC ABG pH 7.310 L POC ABG pCO2 49.0 H POC ABG pO2 ABG pO2 ABG HCO3 ABG Base Excess ABG Hemoglobin Oxyhemoglobin Sodium 133 L Potassium Chloride 95.9 L Carbon Dioxide BUN 26 H Creatinine 2.0 H Glucose 116 H POC Glucose Lactic Acid Calcium 7.8 L Phosphorus Magnesium Direct Bilirubin AST ALT Alkaline Phosphatase Lactate Dehydrogenase Troponin T C-Reactive Protein Total Protein Albumin Prealbumin Triglycerides Cholesterol LDL Cholesterol Direct HDL Cholesterol Urine pH Urine WBC (Auto) Urine Creatinine Urine Total Protein Fluid Total Protein Vancomycin Trough Rheumatoid Factor Complement C4 Miscellaneous Test Crossmatch 10/06/16 10/06/16 10/06/16 05:23 11:52 18:34 WBC RBC Hgb Hct MCV MCH MCHC RDW Plt Count Lymph % (Auto) [place] % (Auto) Lymph # [place] # Baso # Seg Neutrophils % Seg Neuts % (Manual) Lymphocytes % (Manual) Monocytes % (Manual) Eosinophils % (Manual) Basophils % (Manual) Nucleated RBC % Seg Neutrophils # Seg Neutrophils # Man Lymphocytes # (Manual) Monocytes # (Manual) Eosinophils # (Manual) Basophils # (Manual) PT INR Fibrinogen dRVVT Confirm Interp Factor V Activity POC ABG pH POC ABG pCO2 POC ABG pO2 ABG pO2 ABG HCO3 ABG Base Excess ABG Hemoglobin Oxyhemoglobin Sodium Potassium Chloride Carbon Dioxide BUN Creatinine Glucose POC Glucose 126 H 116 H 129 H Lactic Acid Calcium Phosphorus Magnesium Direct Bilirubin AST ALT Alkaline Phosphatase Lactate Dehydrogenase Troponin T C-Reactive Protein Total Protein Albumin Prealbumin Triglycerides Cholesterol LDL Cholesterol Direct HDL Cholesterol Urine pH Urine WBC (Auto) Urine Creatinine Urine Total Protein Fluid Total Protein Vancomycin Trough Rheumatoid Factor Complement C4 Miscellaneous Test Crossmatch 10/07/16 10/07/16 10/07/16 03:45 05:00 10:00 WBC 17.0 H RBC 2.68 L Hgb 7.3 L Hct 25.3 L MCV MCH 27 L MCHC 29 L RDW 19.6 H Plt Count 74 L Lymph % (Auto) [place] % (Auto) Lymph # [place] # Baso # Seg Neutrophils % Seg Neuts % (Manual) Lymphocytes % (Manual) 12.0 L Monocytes % (Manual) Eosinophils % (Manual) Basophils % (Manual) Nucleated RBC % 4.0 H Seg Neutrophils # Seg Neutrophils # Man 10.7 H Lymphocytes # (Manual) Monocytes # (Manual) Eosinophils # (Manual) Basophils # (Manual) PT INR Fibrinogen dRVVT Confirm Interp Factor V Activity POC ABG pH POC ABG pCO2 POC ABG pO2 ABG pO2 ABG HCO3 ABG Base Excess ABG Hemoglobin Oxyhemoglobin Sodium 130 L Potassium 3.2 L Chloride 93.9 L Carbon Dioxide 20 L BUN 44 H Creatinine 2.7 H Glucose 129 H POC Glucose Lactic Acid Calcium 7.4 L Phosphorus Magnesium Direct Bilirubin AST ALT 6 L Alkaline Phosphatase 195 H Lactate Dehydrogenase Troponin T C-Reactive Protein Total Protein 4.9 L Albumin 1.0 L Prealbumin Triglycerides Cholesterol LDL Cholesterol Direct HDL Cholesterol Urine pH Urine WBC (Auto) Urine Creatinine Urine Total Protein Fluid Total Protein Vancomycin Trough Rheumatoid Factor Complement C4 Miscellaneous Test Flexitest 1 H Crossmatch 10/07/16 10/07/16 10/07/16 10:00 11:24 18:10 WBC RBC Hgb Hct MCV MCH MCHC RDW Plt Count Lymph % (Auto) [place] % (Auto) Lymph # [place] # Baso # Seg Neutrophils % Seg Neuts % (Manual) Lymphocytes % (Manual) Monocytes % (Manual) Eosinophils % (Manual) Basophils % (Manual) Nucleated RBC % Seg Neutrophils # Seg Neutrophils # Man Lymphocytes # (Manual) Monocytes # (Manual) Eosinophils # (Manual) Basophils # (Manual) PT INR Fibrinogen dRVVT Confirm Interp Factor V Activity POC ABG pH POC ABG pCO2 POC ABG pO2 ABG pO2 ABG HCO3 ABG Base Excess ABG Hemoglobin Oxyhemoglobin Sodium Potassium Chloride Carbon Dioxide BUN Creatinine Glucose POC Glucose 116 H 130 H Lactic Acid Calcium Phosphorus Magnesium Direct Bilirubin AST ALT Alkaline Phosphatase Lactate Dehydrogenase Troponin T C-Reactive Protein 19.40 H Total Protein Albumin Prealbumin Triglycerides Cholesterol LDL Cholesterol Direct HDL Cholesterol Urine pH Urine WBC (Auto) Urine Creatinine Urine Total Protein Fluid Total Protein Vancomycin Trough Rheumatoid Factor Complement C4 Miscellaneous Test Crossmatch 10/07/16 10/08/16 10/08/16 18:30 00:00 04:00 WBC RBC Hgb Hct MCV MCH MCHC RDW Plt Count Lymph % (Auto) [place] % (Auto) Lymph # [place] # Baso # Seg Neutrophils % Seg Neuts % (Manual) Lymphocytes % (Manual) Monocytes % (Manual) Eosinophils % (Manual) Basophils % (Manual) Nucleated RBC % Seg Neutrophils # Seg Neutrophils # Man Lymphocytes # (Manual) Monocytes # (Manual) Eosinophils # (Manual) Basophils # (Manual) PT INR Fibrinogen dRVVT Confirm Interp Factor V Activity POC ABG pH POC ABG pCO2 POC ABG pO2 ABG pO2 ABG HCO3 ABG Base Excess ABG Hemoglobin Oxyhemoglobin Sodium 132 L Potassium 3.3 L Chloride 93.6 L Carbon Dioxide 17 L BUN 59 H Creatinine 2.7 H Glucose 121 H POC Glucose 122 H Lactic Acid Calcium 7.6 L Phosphorus Magnesium Direct Bilirubin AST ALT Alkaline Phosphatase Lactate Dehydrogenase Troponin T C-Reactive Protein Total Protein Albumin Prealbumin Triglycerides Cholesterol LDL Cholesterol Direct HDL Cholesterol Urine pH Urine WBC (Auto) > 182.0 H Urine Creatinine Urine Total Protein Fluid Total Protein Vancomycin Trough Rheumatoid Factor Complement C4 Miscellaneous Test Crossmatch 10/08/16 10/08/16 10/08/16 04:30 05:30 11:51 WBC RBC 5.15 H Hgb 14.4 H D Hct 44.5 H D MCV MCH MCHC RDW 19.5 H Plt Count 56 L Lymph % (Auto) [place] % (Auto) Lymph # [place] # Baso # Seg Neutrophils % Seg Neuts % (Manual) 24.0 L Lymphocytes % (Manual) 8.0 L Monocytes % (Manual) Eosinophils % (Manual) Basophils % (Manual) Nucleated RBC % 9.0 H Seg Neutrophils # Seg Neutrophils # Man Lymphocytes # (Manual) 0.7 L Monocytes # (Manual) Eosinophils # (Manual) Basophils # (Manual) PT INR Fibrinogen dRVVT Confirm Interp Factor V Activity POC ABG pH POC ABG pCO2 POC ABG pO2 ABG pO2 ABG HCO3 ABG Base Excess ABG Hemoglobin Oxyhemoglobin Sodium Potassium Chloride Carbon Dioxide BUN Creatinine Glucose POC Glucose 125 H 150 H Lactic Acid Calcium Phosphorus Magnesium Direct Bilirubin AST ALT Alkaline Phosphatase Lactate Dehydrogenase Troponin T C-Reactive Protein Total Protein Albumin Prealbumin Triglycerides Cholesterol LDL Cholesterol Direct HDL Cholesterol Urine pH Urine WBC (Auto) Urine Creatinine Urine Total Protein Fluid Total Protein Vancomycin Trough Rheumatoid Factor Complement C4 Miscellaneous Test Crossmatch 10/08/16 10/08/16 10/08/16 12:49 17:07 19:30 WBC RBC Hgb 7.1 L D Hct 22.4 L D MCV MCH MCHC RDW Plt Count Lymph % (Auto) [place] % (Auto) Lymph # [place] # Baso # Seg Neutrophils % Seg Neuts % (Manual) Lymphocytes % (Manual) Monocytes % (Manual) Eosinophils % (Manual) Basophils % (Manual) Nucleated RBC % Seg Neutrophils # Seg Neutrophils # Man Lymphocytes # (Manual) Monocytes # (Manual) Eosinophils # (Manual) Basophils # (Manual) PT INR Fibrinogen dRVVT Confirm Interp Factor V Activity POC ABG pH POC ABG pCO2 28.2 L POC ABG pO2 111 H ABG pO2 ABG HCO3 ABG Base Excess ABG Hemoglobin Oxyhemoglobin Sodium Potassium Chloride Carbon Dioxide BUN Creatinine Glucose POC Glucose 145 H Lactic Acid Calcium Phosphorus Magnesium Direct Bilirubin AST ALT Alkaline Phosphatase Lactate Dehydrogenase Troponin T C-Reactive Protein Total Protein Albumin Prealbumin Triglycerides Cholesterol LDL Cholesterol Direct HDL Cholesterol Urine pH Urine WBC (Auto) Urine Creatinine Urine Total Protein Fluid Total Protein Vancomycin Trough Rheumatoid Factor Complement C4 Miscellaneous Test Crossmatch 10/08/16 10/09/16 10/09/16 19:30 03:45 03:45 WBC 12.6 H RBC 2.36 L Hgb 6.7 L Hct 21.1 L MCV MCH MCHC RDW 19.5 H Plt Count 75 L Lymph % (Auto) [place] % (Auto) Lymph # [place] # Baso # Seg Neutrophils % Seg Neuts % (Manual) Lymphocytes % (Manual) Monocytes % (Manual) 10.0 H Eosinophils % (Manual) Basophils % (Manual) Nucleated RBC % 3.0 H Seg Neutrophils # Seg Neutrophils # Man Lymphocytes # (Manual) Monocytes # (Manual) 1.3 H Eosinophils # (Manual) Basophils # (Manual) PT 18.0 H INR 1.41 H Fibrinogen dRVVT Confirm Interp Factor V Activity POC ABG pH POC ABG pCO2 POC ABG pO2 ABG pO2 ABG HCO3 ABG Base Excess ABG Hemoglobin Oxyhemoglobin Sodium 135 L Potassium Chloride Carbon Dioxide 17 L BUN 81 H Creatinine 3.2 H Glucose 109 H POC Glucose Lactic Acid Calcium 7.4 L Phosphorus 4.60 H D Magnesium Direct Bilirubin AST ALT Alkaline Phosphatase Lactate Dehydrogenase Troponin T C-Reactive Protein Total Protein Albumin Prealbumin Triglycerides Cholesterol LDL Cholesterol Direct HDL Cholesterol Urine pH Urine WBC (Auto) Urine Creatinine Urine Total Protein Fluid Total Protein Vancomycin Trough Rheumatoid Factor Complement C4 Miscellaneous Test Crossmatch 10/09/16 10/09/16 10/09/16 03:45 05:14 07:20 WBC RBC Hgb Hct MCV MCH MCHC RDW Plt Count Lymph % (Auto) [place] % (Auto) Lymph # [place] # Baso # Seg Neutrophils % Seg Neuts % (Manual) Lymphocytes % (Manual) Monocytes % (Manual) Eosinophils % (Manual) Basophils % (Manual) Nucleated RBC % Seg Neutrophils # Seg Neutrophils # Man Lymphocytes # (Manual) Monocytes # (Manual) Eosinophils # (Manual) Basophils # (Manual) PT 19.0 H INR 1.51 H Fibrinogen dRVVT Confirm Interp Factor V Activity POC ABG pH POC ABG pCO2 POC ABG pO2 ABG pO2 ABG HCO3 ABG Base Excess ABG Hemoglobin Oxyhemoglobin Sodium Potassium Chloride Carbon Dioxide BUN Creatinine Glucose POC Glucose 151 H Lactic Acid Calcium Phosphorus Magnesium Direct Bilirubin AST ALT Alkaline Phosphatase Lactate Dehydrogenase Troponin T C-Reactive Protein Total Protein Albumin Prealbumin Triglycerides Cholesterol LDL Cholesterol Direct HDL Cholesterol Urine pH Urine WBC (Auto) Urine Creatinine Urine Total Protein Fluid Total Protein Vancomycin Trough Rheumatoid Factor Complement C4 Miscellaneous Test Crossmatch See Detail 10/09/16 10/09/16 10/09/16 11:46 16:20 16:43 WBC RBC Hgb 7.2 L Hct 22.2 L MCV MCH MCHC RDW Plt Count Lymph % (Auto) [place] % (Auto) Lymph # [place] # Baso # Seg Neutrophils % Seg Neuts % (Manual) Lymphocytes % (Manual) Monocytes % (Manual) Eosinophils % (Manual) Basophils % (Manual) Nucleated RBC % Seg Neutrophils # Seg Neutrophils # Man Lymphocytes # (Manual) Monocytes # (Manual) Eosinophils # (Manual) Basophils # (Manual) PT INR Fibrinogen dRVVT Confirm Interp Factor V Activity POC ABG pH POC ABG pCO2 POC ABG pO2 ABG pO2 ABG HCO3 ABG Base Excess ABG Hemoglobin Oxyhemoglobin Sodium Potassium Chloride Carbon Dioxide BUN Creatinine Glucose POC Glucose 133 H 141 H Lactic Acid Calcium Phosphorus Magnesium Direct Bilirubin AST ALT Alkaline Phosphatase Lactate Dehydrogenase Troponin T C-Reactive Protein Total Protein Albumin Prealbumin Triglycerides Cholesterol LDL Cholesterol Direct HDL Cholesterol Urine pH Urine WBC (Auto) Urine Creatinine Urine Total Protein Fluid Total Protein Vancomycin Trough Rheumatoid Factor Complement C4 Miscellaneous Test Crossmatch 10/10/16 10/10/16 10/10/16 05:00 05:00 11:19 WBC 18.5 H RBC 2.19 L Hgb 6.4 L Hct 19.6 L* MCV MCH MCHC RDW 19.3 H Plt Count 93 L Lymph % (Auto) [place] % (Auto) Lymph # [place] # Baso # Seg Neutrophils % Seg Neuts % (Manual) Lymphocytes % (Manual) 10.0 L Monocytes % (Manual) Eosinophils % (Manual) Basophils % (Manual) Nucleated RBC % 4.0 H Seg Neutrophils # Seg Neutrophils # Man 11.3 H Lymphocytes # (Manual) Monocytes # (Manual) Eosinophils # (Manual) Basophils # (Manual) PT INR Fibrinogen dRVVT Confirm Interp Factor V Activity POC ABG pH POC ABG pCO2 POC ABG pO2 ABG pO2 ABG HCO3 ABG Base Excess ABG Hemoglobin Oxyhemoglobin Sodium Potassium 5.7 H D Chloride Carbon Dioxide 16 L BUN 94 H Creatinine 3.1 H Glucose 131 H POC Glucose 153 H Lactic Acid Calcium 8.2 L Phosphorus 5.10 H Magnesium 2.40 H Direct Bilirubin 0.3 H AST ALT < 5 L Alkaline Phosphatase 319 H Lactate Dehydrogenase Troponin T C-Reactive Protein Total Protein 5.1 L Albumin 1.0 L Prealbumin Triglycerides Cholesterol LDL Cholesterol Direct HDL Cholesterol Urine pH Urine WBC (Auto) Urine Creatinine Urine Total Protein Fluid Total Protein Vancomycin Trough Rheumatoid Factor Complement C4 Miscellaneous Test Crossmatch 10/10/16 10/10/16 10/11/16 17:50 23:30 04:15 WBC RBC Hgb Hct MCV MCH MCHC RDW Plt Count Lymph % (Auto) [place] % (Auto) Lymph # [place] # Baso # Seg Neutrophils % Seg Neuts % (Manual) Lymphocytes % (Manual) Monocytes % (Manual) Eosinophils % (Manual) Basophils % (Manual) Nucleated RBC % Seg Neutrophils # Seg Neutrophils # Man Lymphocytes # (Manual) Monocytes # (Manual) Eosinophils # (Manual) Basophils # (Manual) PT INR Fibrinogen dRVVT Confirm Interp Factor V Activity POC ABG pH POC ABG pCO2 POC ABG pO2 ABG pO2 ABG HCO3 ABG Base Excess ABG Hemoglobin Oxyhemoglobin Sodium Potassium Chloride 96.4 L Carbon Dioxide 21 L BUN 57 H Creatinine 2.1 H Glucose 151 H POC Glucose 146 H 141 H Lactic Acid Calcium 8.3 L Phosphorus Magnesium Direct Bilirubin AST ALT Alkaline Phosphatase Lactate Dehydrogenase Troponin T C-Reactive Protein Total Protein Albumin Prealbumin Triglycerides Cholesterol LDL Cholesterol Direct HDL Cholesterol Urine pH Urine WBC (Auto) Urine Creatinine Urine Total Protein Fluid Total Protein Vancomycin Trough Rheumatoid Factor Complement C4 Miscellaneous Test Crossmatch 10/11/16 10/11/16 10/11/16 04:15 04:15 05:30 WBC 28.3 H RBC 3.12 L Hgb 9.3 L Hct 28.7 L D MCV MCH MCHC RDW 17.7 H Plt Count 128 L Lymph % (Auto) [place] % (Auto) Lymph # [place] # Baso # Seg Neutrophils % Seg Neuts % (Manual) Lymphocytes % (Manual) Monocytes % (Manual) Eosinophils % (Manual) Basophils % (Manual) Nucleated RBC % Seg Neutrophils # Seg Neutrophils # Man Lymphocytes # (Manual) Monocytes # (Manual) Eosinophils # (Manual) Basophils # (Manual) PT INR Fibrinogen dRVVT Confirm Interp Factor V Activity POC ABG pH POC ABG pCO2 POC ABG pO2 ABG pO2 ABG HCO3 ABG Base Excess ABG Hemoglobin Oxyhemoglobin Sodium Potassium Chloride Carbon Dioxide BUN Creatinine Glucose POC Glucose 167 H Lactic Acid Calcium Phosphorus Magnesium Direct Bilirubin AST ALT Alkaline Phosphatase Lactate Dehydrogenase Troponin T C-Reactive Protein 15.80 H Total Protein Albumin Prealbumin Triglycerides Cholesterol LDL Cholesterol Direct HDL Cholesterol Urine pH Urine WBC (Auto) Urine Creatinine Urine Total Protein Fluid Total Protein Vancomycin Trough Rheumatoid Factor Complement C4 Miscellaneous Test Crossmatch 10/11/16 10/11/16 10/11/16 11:40 15:49 23:57 WBC RBC Hgb Hct MCV MCH MCHC RDW Plt Count Lymph % (Auto) [place] % (Auto) Lymph # [place] # Baso # Seg Neutrophils % Seg Neuts % (Manual) Lymphocytes % (Manual) Monocytes % (Manual) Eosinophils % (Manual) Basophils % (Manual) Nucleated RBC % Seg Neutrophils # Seg Neutrophils # Man Lymphocytes # (Manual) Monocytes # (Manual) Eosinophils # (Manual) Basophils # (Manual) PT INR Fibrinogen dRVVT Confirm Interp Factor V Activity POC ABG pH POC ABG pCO2 POC ABG pO2 ABG pO2 ABG HCO3 ABG Base Excess ABG Hemoglobin Oxyhemoglobin Sodium Potassium Chloride Carbon Dioxide BUN Creatinine Glucose POC Glucose 139 H 168 H 161 H Lactic Acid Calcium Phosphorus Magnesium Direct Bilirubin AST ALT Alkaline Phosphatase Lactate Dehydrogenase Troponin T C-Reactive Protein Total Protein Albumin Prealbumin Triglycerides Cholesterol LDL Cholesterol Direct HDL Cholesterol Urine pH Urine WBC (Auto) Urine Creatinine Urine Total Protein Fluid Total Protein Vancomycin Trough Rheumatoid Factor Complement C4 Miscellaneous Test Crossmatch 10/12/16 10/12/16 10/12/16 04:40 04:40 05:44 WBC 22.5 H RBC 2.88 L Hgb 8.8 L Hct 26.8 L MCV MCH MCHC RDW 17.8 H Plt Count Lymph % (Auto) [place] % (Auto) Lymph # [place] # Baso # Seg Neutrophils % Seg Neuts % (Manual) Lymphocytes % (Manual) Monocytes % (Manual) Eosinophils % (Manual) Basophils % (Manual) Nucleated RBC % Seg Neutrophils # Seg Neutrophils # Man Lymphocytes # (Manual) Monocytes # (Manual) Eosinophils # (Manual) Basophils # (Manual) PT INR Fibrinogen dRVVT Confirm Interp Factor V Activity POC ABG pH POC ABG pCO2 POC ABG pO2 ABG pO2 ABG HCO3 ABG Base Excess ABG Hemoglobin Oxyhemoglobin Sodium 134 L Potassium Chloride 93.0 L Carbon Dioxide BUN 74 H Creatinine 2.5 H Glucose 137 H POC Glucose 158 H Lactic Acid Calcium 8.2 L Phosphorus Magnesium Direct Bilirubin AST ALT Alkaline Phosphatase Lactate Dehydrogenase Troponin T C-Reactive Protein Total Protein Albumin Prealbumin Triglycerides Cholesterol LDL Cholesterol Direct HDL Cholesterol Urine pH Urine WBC (Auto) Urine Creatinine Urine Total Protein Fluid Total Protein Vancomycin Trough Rheumatoid Factor Complement C4 Miscellaneous Test Crossmatch 10/12/16 10/12/16 10/12/16 12:27 18:18 23:46 WBC RBC Hgb Hct MCV MCH MCHC RDW Plt Count Lymph % (Auto) [place] % (Auto) Lymph # [place] # Baso # Seg Neutrophils % Seg Neuts % (Manual) Lymphocytes % (Manual) Monocytes % (Manual) Eosinophils % (Manual) Basophils % (Manual) Nucleated RBC % Seg Neutrophils # Seg Neutrophils # Man Lymphocytes # (Manual) Monocytes # (Manual) Eosinophils # (Manual) Basophils # (Manual) PT INR Fibrinogen dRVVT Confirm Interp Factor V Activity POC ABG pH POC ABG pCO2 POC ABG pO2 ABG pO2 ABG HCO3 ABG Base Excess ABG Hemoglobin Oxyhemoglobin Sodium Potassium Chloride Carbon Dioxide BUN Creatinine Glucose POC Glucose 153 H 140 H 150 H Lactic Acid Calcium Phosphorus Magnesium Direct Bilirubin AST ALT Alkaline Phosphatase Lactate Dehydrogenase Troponin T C-Reactive Protein Total Protein Albumin Prealbumin Triglycerides Cholesterol LDL Cholesterol Direct HDL Cholesterol Urine pH Urine WBC (Auto) Urine Creatinine Urine Total Protein Fluid Total Protein Vancomycin Trough Rheumatoid Factor Complement C4 Miscellaneous Test Crossmatch 10/13/16 10/13/16 10/13/16 06:22 09:20 12:29 WBC RBC Hgb Hct MCV MCH MCHC RDW Plt Count Lymph % (Auto) [place] % (Auto) Lymph # [place] # Baso # Seg Neutrophils % Seg Neuts % (Manual) Lymphocytes % (Manual) Monocytes % (Manual) Eosinophils % (Manual) Basophils % (Manual) Nucleated RBC % Seg Neutrophils # Seg Neutrophils # Man Lymphocytes # (Manual) Monocytes # (Manual) Eosinophils # (Manual) Basophils # (Manual) PT INR Fibrinogen dRVVT Confirm Interp Factor V Activity POC ABG pH POC ABG pCO2 POC ABG pO2 ABG pO2 ABG HCO3 ABG Base Excess ABG Hemoglobin Oxyhemoglobin Sodium Potassium Chloride Carbon Dioxide BUN Creatinine Glucose POC Glucose 165 H 193 H Lactic Acid Calcium Phosphorus Magnesium Direct Bilirubin AST ALT Alkaline Phosphatase Lactate Dehydrogenase Troponin T C-Reactive Protein Total Protein Albumin Prealbumin Triglycerides Cholesterol LDL Cholesterol Direct HDL Cholesterol Urine pH Urine WBC (Auto) Urine Creatinine Urine Total Protein Fluid Total Protein Vancomycin Trough Rheumatoid Factor Complement C4 Miscellaneous Test Flexitest 1 H Crossmatch 10/13/16 10/13/16 10/13/16 18:09 Unknown Unknown WBC 23.4 H RBC 2.83 L Hgb 8.7 L Hct 26.1 L MCV MCH MCHC RDW 18.1 H Plt Count Lymph % (Auto) [place] % (Auto) Lymph # [place] # Baso # Seg Neutrophils % Seg Neuts % (Manual) Lymphocytes % (Manual) Monocytes % (Manual) Eosinophils % (Manual) Basophils % (Manual) Nucleated RBC % Seg Neutrophils # Seg Neutrophils # Man Lymphocytes # (Manual) Monocytes # (Manual) Eosinophils # (Manual) Basophils # (Manual) PT INR Fibrinogen dRVVT Confirm Interp Factor V Activity POC ABG pH POC ABG pCO2 POC ABG pO2 ABG pO2 ABG HCO3 ABG Base Excess ABG Hemoglobin Oxyhemoglobin Sodium Potassium Chloride 95.8 L Carbon Dioxide BUN 82 H Creatinine 2.6 H Glucose 152 H POC Glucose 166 H Lactic Acid Calcium Phosphorus Magnesium Direct Bilirubin AST ALT Alkaline Phosphatase Lactate Dehydrogenase Troponin T C-Reactive Protein Total Protein Albumin Prealbumin Triglycerides Cholesterol LDL Cholesterol Direct HDL Cholesterol Urine pH Urine WBC (Auto) Urine Creatinine Urine Total Protein Fluid Total Protein Vancomycin Trough Rheumatoid Factor Complement C4 Miscellaneous Test Crossmatch 10/14/16 10/14/16 10/14/16 05:38 06:35 08:10 WBC 20.7 H RBC 2.81 L Hgb 8.4 L Hct 27.2 L MCV MCH MCHC RDW 19.4 H Plt Count Lymph % (Auto) [place] % (Auto) Lymph # [place] # Baso # Seg Neutrophils % Seg Neuts % (Manual) Lymphocytes % (Manual) Monocytes % (Manual) Eosinophils % (Manual) Basophils % (Manual) Nucleated RBC % Seg Neutrophils # Seg Neutrophils # Man Lymphocytes # (Manual) Monocytes # (Manual) Eosinophils # (Manual) Basophils # (Manual) PT INR Fibrinogen dRVVT Confirm Interp Factor V Activity POC ABG pH POC ABG pCO2 POC ABG pO2 ABG pO2 ABG HCO3 ABG Base Excess ABG Hemoglobin Oxyhemoglobin Sodium Potassium Chloride Carbon Dioxide BUN 58 H Creatinine 1.9 H Glucose 169 H POC Glucose 195 H Lactic Acid Calcium Phosphorus Magnesium Direct Bilirubin AST ALT Alkaline Phosphatase Lactate Dehydrogenase Troponin T C-Reactive Protein Total Protein Albumin Prealbumin Triglycerides Cholesterol LDL Cholesterol Direct HDL Cholesterol Urine pH Urine WBC (Auto) Urine Creatinine Urine Total Protein Fluid Total Protein Vancomycin Trough Rheumatoid Factor Complement C4 Miscellaneous Test Crossmatch 10/14/16 10/14/16 10/14/16 11:44 17:13 23:28 WBC RBC Hgb Hct MCV MCH MCHC RDW Plt Count Lymph % (Auto) [place] % (Auto) Lymph # [place] # Baso # Seg Neutrophils % Seg Neuts % (Manual) Lymphocytes % (Manual) Monocytes % (Manual) Eosinophils % (Manual) Basophils % (Manual) Nucleated RBC % Seg Neutrophils # Seg Neutrophils # Man Lymphocytes # (Manual) Monocytes # (Manual) Eosinophils # (Manual) Basophils # (Manual) PT INR Fibrinogen dRVVT Confirm Interp Factor V Activity POC ABG pH POC ABG pCO2 POC ABG pO2 ABG pO2 ABG HCO3 ABG Base Excess ABG Hemoglobin Oxyhemoglobin Sodium Potassium Chloride Carbon Dioxide BUN Creatinine Glucose POC Glucose 174 H 121 H 151 H Lactic Acid Calcium Phosphorus Magnesium Direct Bilirubin AST ALT Alkaline Phosphatase Lactate Dehydrogenase Troponin T C-Reactive Protein Total Protein Albumin Prealbumin Triglycerides Cholesterol LDL Cholesterol Direct HDL Cholesterol Urine pH Urine WBC (Auto) Urine Creatinine Urine Total Protein Fluid Total Protein Vancomycin Trough Rheumatoid Factor Complement C4 Miscellaneous Test Crossmatch 10/15/16 10/15/16 10/15/16 05:06 12:26 17:48 WBC RBC Hgb Hct MCV MCH MCHC RDW Plt Count Lymph % (Auto) [place] % (Auto) Lymph # [place] # Baso # Seg Neutrophils % Seg Neuts % (Manual) Lymphocytes % (Manual) Monocytes % (Manual) Eosinophils % (Manual) Basophils % (Manual) Nucleated RBC % Seg Neutrophils # Seg Neutrophils # Man Lymphocytes # (Manual) Monocytes # (Manual) Eosinophils # (Manual) Basophils # (Manual) PT INR Fibrinogen dRVVT Confirm Interp Factor V Activity POC ABG pH POC ABG pCO2 POC ABG pO2 ABG pO2 ABG HCO3 ABG Base Excess ABG Hemoglobin Oxyhemoglobin Sodium Potassium Chloride Carbon Dioxide BUN Creatinine Glucose POC Glucose 151 H 149 H 153 H Lactic Acid Calcium Phosphorus Magnesium Direct Bilirubin AST ALT Alkaline Phosphatase Lactate Dehydrogenase Troponin T C-Reactive Protein Total Protein Albumin Prealbumin Triglycerides Cholesterol LDL Cholesterol Direct HDL Cholesterol Urine pH Urine WBC (Auto) Urine Creatinine Urine Total Protein Fluid Total Protein Vancomycin Trough Rheumatoid Factor Complement C4 Miscellaneous Test Crossmatch 10/15/16 10/15/16 10/16/16 Unknown Unknown 00:02 WBC 23.4 H RBC 2.78 L Hgb 8.5 L Hct 25.7 L MCV MCH MCHC RDW 18.7 H Plt Count Lymph % (Auto) [place] % (Auto) Lymph # [place] # Baso # Seg Neutrophils % Seg Neuts % (Manual) Lymphocytes % (Manual) Monocytes % (Manual) Eosinophils % (Manual) Basophils % (Manual) Nucleated RBC % Seg Neutrophils # Seg Neutrophils # Man Lymphocytes # (Manual) Monocytes # (Manual) Eosinophils # (Manual) Basophils # (Manual) PT INR Fibrinogen dRVVT Confirm Interp Factor V Activity POC ABG pH POC ABG pCO2 POC ABG pO2 ABG pO2 ABG HCO3 ABG Base Excess ABG Hemoglobin Oxyhemoglobin Sodium Potassium Chloride Carbon Dioxide BUN 73 H Creatinine 2.3 H Glucose 120 H POC Glucose 137 H Lactic Acid Calcium Phosphorus Magnesium Direct Bilirubin AST ALT Alkaline Phosphatase Lactate Dehydrogenase Troponin T C-Reactive Protein Total Protein Albumin Prealbumin Triglycerides Cholesterol LDL Cholesterol Direct HDL Cholesterol Urine pH Urine WBC (Auto) Urine Creatinine Urine Total Protein Fluid Total Protein Vancomycin Trough Rheumatoid Factor Complement C4 Miscellaneous Test Crossmatch 10/16/16 10/16/16 10/16/16 05:44 06:25 06:25 WBC 22.5 H RBC 2.76 L Hgb 8.3 L Hct 25.2 L MCV MCH MCHC RDW 18.3 H Plt Count Lymph % (Auto) [place] % (Auto) Lymph # [place] # Baso # Seg Neutrophils % Seg Neuts % (Manual) Lymphocytes % (Manual) Monocytes % (Manual) Eosinophils % (Manual) Basophils % (Manual) Nucleated RBC % Seg Neutrophils # Seg Neutrophils # Man Lymphocytes # (Manual) Monocytes # (Manual) Eosinophils # (Manual) Basophils # (Manual) PT INR Fibrinogen dRVVT Confirm Interp Factor V Activity POC ABG pH POC ABG pCO2 POC ABG pO2 ABG pO2 ABG HCO3 ABG Base Excess ABG Hemoglobin Oxyhemoglobin Sodium Potassium Chloride Carbon Dioxide BUN 92 H Creatinine 3.0 H Glucose 138 H POC Glucose 110 H Lactic Acid Calcium Phosphorus Magnesium Direct Bilirubin AST ALT Alkaline Phosphatase Lactate Dehydrogenase Troponin T C-Reactive Protein Total Protein Albumin Prealbumin Triglycerides Cholesterol LDL Cholesterol Direct HDL Cholesterol Urine pH Urine WBC (Auto) Urine Creatinine Urine Total Protein Fluid Total Protein Vancomycin Trough Rheumatoid Factor Complement C4 Miscellaneous Test Crossmatch 10/16/16 10/16/16 10/16/16 11:27 11:48 17:36 WBC RBC Hgb Hct MCV MCH MCHC RDW Plt Count Lymph % (Auto) [place] % (Auto) Lymph # [place] # Baso # Seg Neutrophils % Seg Neuts % (Manual) Lymphocytes % (Manual) Monocytes % (Manual) Eosinophils % (Manual) Basophils % (Manual) Nucleated RBC % Seg Neutrophils # Seg Neutrophils # Man Lymphocytes # (Manual) Monocytes # (Manual) Eosinophils # (Manual) Basophils # (Manual) PT INR Fibrinogen dRVVT Confirm Interp Factor V Activity POC ABG pH 7.582 H POC ABG pCO2 27.4 L POC ABG pO2 110 H ABG pO2 ABG HCO3 ABG Base Excess ABG Hemoglobin Oxyhemoglobin Sodium Potassium Chloride Carbon Dioxide BUN Creatinine Glucose POC Glucose 121 H 133 H Lactic Acid Calcium Phosphorus Magnesium Direct Bilirubin AST ALT Alkaline Phosphatase Lactate Dehydrogenase Troponin T C-Reactive Protein Total Protein Albumin Prealbumin Triglycerides Cholesterol LDL Cholesterol Direct HDL Cholesterol Urine pH Urine WBC (Auto) Urine Creatinine Urine Total Protein Fluid Total Protein Vancomycin Trough Rheumatoid Factor Complement C4 Miscellaneous Test Crossmatch 10/16/16 10/17/16 10/17/16 20:48 04:24 04:24 WBC 21.4 H RBC 2.72 L Hgb 8.0 L Hct 25.2 L MCV MCH MCHC RDW 18.0 H Plt Count Lymph % (Auto) [place] % (Auto) Lymph # [place] # Baso # Seg Neutrophils % Seg Neuts % (Manual) Lymphocytes % (Manual) Monocytes % (Manual) Eosinophils % (Manual) Basophils % (Manual) Nucleated RBC % Seg Neutrophils # Seg Neutrophils # Man Lymphocytes # (Manual) Monocytes # (Manual) Eosinophils # (Manual) Basophils # (Manual) PT INR Fibrinogen dRVVT Confirm Interp Factor V Activity POC ABG pH 7.561 H POC ABG pCO2 24.4 L POC ABG pO2 77 L ABG pO2 ABG HCO3 ABG Base Excess ABG Hemoglobin Oxyhemoglobin Sodium 148 H Potassium Chloride Carbon Dioxide BUN 104 H Creatinine 3.0 H Glucose 149 H POC Glucose Lactic Acid Calcium Phosphorus Magnesium Direct Bilirubin AST ALT Alkaline Phosphatase 138 H Lactate Dehydrogenase Troponin T C-Reactive Protein Total Protein 6.2 L Albumin 1.5 L Prealbumin Triglycerides Cholesterol LDL Cholesterol Direct HDL Cholesterol Urine pH Urine WBC (Auto) Urine Creatinine Urine Total Protein Fluid Total Protein Vancomycin Trough Rheumatoid Factor Complement C4 Miscellaneous Test Crossmatch 10/17/16 10/17/16 10/17/16 06:02 12:17 17:14 WBC RBC Hgb Hct MCV MCH MCHC RDW Plt Count Lymph % (Auto) [place] % (Auto) Lymph # [place] # Baso # Seg Neutrophils % Seg Neuts % (Manual) Lymphocytes % (Manual) Monocytes % (Manual) Eosinophils % (Manual) Basophils % (Manual) Nucleated RBC % Seg Neutrophils # Seg Neutrophils # Man Lymphocytes # (Manual) Monocytes # (Manual) Eosinophils # (Manual) Basophils # (Manual) PT INR Fibrinogen dRVVT Confirm Interp Factor V Activity POC ABG pH POC ABG pCO2 POC ABG pO2 ABG pO2 ABG HCO3 ABG Base Excess ABG Hemoglobin Oxyhemoglobin Sodium Potassium Chloride Carbon Dioxide BUN Creatinine Glucose POC Glucose 170 H 167 H 126 H Lactic Acid Calcium Phosphorus Magnesium Direct Bilirubin AST ALT Alkaline Phosphatase Lactate Dehydrogenase Troponin T C-Reactive Protein Total Protein Albumin Prealbumin Triglycerides Cholesterol LDL Cholesterol Direct HDL Cholesterol Urine pH Urine WBC (Auto) Urine Creatinine Urine Total Protein Fluid Total Protein Vancomycin Trough Rheumatoid Factor Complement C4 Miscellaneous Test Crossmatch 10/17/16 10/18/16 10/18/16 23:17 04:00 04:00 WBC 20.7 H RBC 2.47 L Hgb 7.4 L Hct 22.9 L MCV MCH MCHC RDW 17.5 H Plt Count Lymph % (Auto) [place] % (Auto) Lymph # [place] # Baso # Seg Neutrophils % Seg Neuts % (Manual) Lymphocytes % (Manual) Monocytes % (Manual) Eosinophils % (Manual) Basophils % (Manual) Nucleated RBC % Seg Neutrophils # Seg Neutrophils # Man Lymphocytes # (Manual) Monocytes # (Manual) Eosinophils # (Manual) Basophils # (Manual) PT INR Fibrinogen dRVVT Confirm Interp Factor V Activity POC ABG pH POC ABG pCO2 POC ABG pO2 ABG pO2 ABG HCO3 ABG Base Excess ABG Hemoglobin Oxyhemoglobin Sodium 149 H Potassium Chloride 107.9 H Carbon Dioxide 20 L BUN 117 H Creatinine 3.2 H Glucose 119 H POC Glucose 121 H Lactic Acid Calcium Phosphorus Magnesium Direct Bilirubin AST ALT Alkaline Phosphatase Lactate Dehydrogenase Troponin T C-Reactive Protein Total Protein Albumin Prealbumin Triglycerides Cholesterol LDL Cholesterol Direct HDL Cholesterol Urine pH Urine WBC (Auto) Urine Creatinine Urine Total Protein Fluid Total Protein Vancomycin Trough Rheumatoid Factor Complement C4 Miscellaneous Test Crossmatch 10/18/16 10/18/16 10/18/16 05:23 10:46 17:30 WBC RBC Hgb Hct MCV MCH MCHC RDW Plt Count Lymph % (Auto) [place] % (Auto) Lymph # [place] # Baso # Seg Neutrophils % Seg Neuts % (Manual) Lymphocytes % (Manual) Monocytes % (Manual) Eosinophils % (Manual) Basophils % (Manual) Nucleated RBC % Seg Neutrophils # Seg Neutrophils # Man Lymphocytes # (Manual) Monocytes # (Manual) Eosinophils # (Manual) Basophils # (Manual) PT INR Fibrinogen dRVVT Confirm Interp Factor V Activity POC ABG pH POC ABG pCO2 POC ABG pO2 ABG pO2 ABG HCO3 ABG Base Excess ABG Hemoglobin Oxyhemoglobin Sodium Potassium Chloride Carbon Dioxide BUN Creatinine Glucose POC Glucose 119 H 155 H 124 H Lactic Acid Calcium Phosphorus Magnesium Direct Bilirubin AST ALT Alkaline Phosphatase Lactate Dehydrogenase Troponin T C-Reactive Protein Total Protein Albumin Prealbumin Triglycerides Cholesterol LDL Cholesterol Direct HDL Cholesterol Urine pH Urine WBC (Auto) Urine Creatinine Urine Total Protein Fluid Total Protein Vancomycin Trough Rheumatoid Factor Complement C4 Miscellaneous Test Crossmatch 10/19/16 10/19/16 10/19/16 04:00 04:00 05:25 WBC 17.4 H RBC 2.54 L Hgb 7.7 L Hct 23.6 L MCV MCH MCHC RDW 17.3 H Plt Count Lymph % (Auto) [place] % (Auto) Lymph # [place] # Baso # Seg Neutrophils % Seg Neuts % (Manual) Lymphocytes % (Manual) Monocytes % (Manual) Eosinophils % (Manual) Basophils % (Manual) Nucleated RBC % Seg Neutrophils # Seg Neutrophils # Man Lymphocytes # (Manual) Monocytes # (Manual) Eosinophils # (Manual) Basophils # (Manual) PT INR Fibrinogen dRVVT Confirm Interp Factor V Activity POC ABG pH POC ABG pCO2 POC ABG pO2 ABG pO2 ABG HCO3 ABG Base Excess ABG Hemoglobin Oxyhemoglobin Sodium Potassium Chloride Carbon Dioxide BUN 72 H Creatinine 2.1 H Glucose 116 H POC Glucose 119 H Lactic Acid Calcium Phosphorus Magnesium Direct Bilirubin AST ALT Alkaline Phosphatase Lactate Dehydrogenase Troponin T C-Reactive Protein Total Protein Albumin Prealbumin Triglycerides Cholesterol LDL Cholesterol Direct HDL Cholesterol Urine pH Urine WBC (Auto) Urine Creatinine Urine Total Protein Fluid Total Protein Vancomycin Trough Rheumatoid Factor Complement C4 Miscellaneous Test Crossmatch 10/19/16 10/19/16 10/20/16 11:46 23:59 06:00 WBC RBC Hgb Hct MCV MCH MCHC RDW Plt Count Lymph % (Auto) [place] % (Auto) Lymph # [place] # Baso # Seg Neutrophils % Seg Neuts % (Manual) Lymphocytes % (Manual) Monocytes % (Manual) Eosinophils % (Manual) Basophils % (Manual) Nucleated RBC % Seg Neutrophils # Seg Neutrophils # Man Lymphocytes # (Manual) Monocytes # (Manual) Eosinophils # (Manual) Basophils # (Manual) PT INR Fibrinogen dRVVT Confirm Interp Factor V Activity POC ABG pH POC ABG pCO2 POC ABG pO2 ABG pO2 ABG HCO3 ABG Base Excess ABG Hemoglobin Oxyhemoglobin Sodium Potassium Chloride Carbon Dioxide 17 L BUN 94 H Creatinine 2.7 H Glucose POC Glucose 116 H 117 H Lactic Acid Calcium Phosphorus Magnesium Direct Bilirubin AST ALT Alkaline Phosphatase Lactate Dehydrogenase Troponin T C-Reactive Protein Total Protein Albumin Prealbumin Triglycerides Cholesterol LDL Cholesterol Direct HDL Cholesterol Urine pH Urine WBC (Auto) Urine Creatinine Urine Total Protein Fluid Total Protein Vancomycin Trough Rheumatoid Factor Complement C4 Miscellaneous Test Crossmatch 10/20/16 10/20/16 10/20/16 06:00 11:49 16:00 WBC 19.7 H RBC 2.51 L Hgb 7.7 L Hct 23.5 L MCV MCH MCHC RDW 17.5 H Plt Count Lymph % (Auto) [place] % (Auto) Lymph # [place] # Baso # Seg Neutrophils % Seg Neuts % (Manual) Lymphocytes % (Manual) Monocytes % (Manual) Eosinophils % (Manual) Basophils % (Manual) Nucleated RBC % Seg Neutrophils # Seg Neutrophils # Man Lymphocytes # (Manual) Monocytes # (Manual) Eosinophils # (Manual) Basophils # (Manual) PT INR Fibrinogen dRVVT Confirm Interp Factor V Activity POC ABG pH POC ABG pCO2 POC ABG pO2 ABG pO2 ABG HCO3 ABG Base Excess ABG Hemoglobin Oxyhemoglobin Sodium Potassium Chloride Carbon Dioxide BUN Creatinine Glucose POC Glucose 117 H Lactic Acid Calcium Phosphorus Magnesium Direct Bilirubin AST ALT Alkaline Phosphatase Lactate Dehydrogenase Troponin T C-Reactive Protein Total Protein Albumin Prealbumin Triglycerides Cholesterol LDL Cholesterol Direct HDL Cholesterol Urine pH Urine WBC (Auto) Urine Creatinine Urine Total Protein Fluid Total Protein Vancomycin Trough Rheumatoid Factor Complement C4 Miscellaneous Test Flexitest 1 H Crossmatch 10/20/16 10/20/16 10/21/16 18:36 23:39 04:00 WBC RBC Hgb Hct MCV MCH MCHC RDW Plt Count Lymph % (Auto) [place] % (Auto) Lymph # [place] # Baso # Seg Neutrophils % Seg Neuts % (Manual) Lymphocytes % (Manual) Monocytes % (Manual) Eosinophils % (Manual) Basophils % (Manual) Nucleated RBC % Seg Neutrophils # Seg Neutrophils # Man Lymphocytes # (Manual) Monocytes # (Manual) Eosinophils # (Manual) Basophils # (Manual) PT INR Fibrinogen dRVVT Confirm Interp Factor V Activity POC ABG pH POC ABG pCO2 POC ABG pO2 ABG pO2 ABG HCO3 ABG Base Excess ABG Hemoglobin Oxyhemoglobin Sodium Potassium 5.4 H D Chloride Carbon Dioxide 15 L BUN 110 H Creatinine 3.0 H Glucose POC Glucose 127 H 114 H Lactic Acid Calcium Phosphorus Magnesium Direct Bilirubin AST ALT Alkaline Phosphatase Lactate Dehydrogenase Troponin T C-Reactive Protein Total Protein Albumin Prealbumin Triglycerides Cholesterol LDL Cholesterol Direct HDL Cholesterol Urine pH Urine WBC (Auto) Urine Creatinine Urine Total Protein Fluid Total Protein Vancomycin Trough Rheumatoid Factor Complement C4 Miscellaneous Test Crossmatch 10/21/16 10/21/16 10/22/16 05:54 23:46 05:18 WBC RBC Hgb Hct MCV MCH MCHC RDW Plt Count Lymph % (Auto) [place] % (Auto) Lymph # [place] # Baso # Seg Neutrophils % Seg Neuts % (Manual) Lymphocytes % (Manual) Monocytes % (Manual) Eosinophils % (Manual) Basophils % (Manual) Nucleated RBC % Seg Neutrophils # Seg Neutrophils # Man Lymphocytes # (Manual) Monocytes # (Manual) Eosinophils # (Manual) Basophils # (Manual) PT INR Fibrinogen dRVVT Confirm Interp Factor V Activity POC ABG pH POC ABG pCO2 POC ABG pO2 ABG pO2 ABG HCO3 ABG Base Excess ABG Hemoglobin Oxyhemoglobin Sodium Potassium Chloride Carbon Dioxide BUN Creatinine Glucose POC Glucose 119 H 108 H 109 H Lactic Acid Calcium Phosphorus Magnesium Direct Bilirubin AST ALT Alkaline Phosphatase Lactate Dehydrogenase Troponin T C-Reactive Protein Total Protein Albumin Prealbumin Triglycerides Cholesterol LDL Cholesterol Direct HDL Cholesterol Urine pH Urine WBC (Auto) Urine Creatinine Urine Total Protein Fluid Total Protein Vancomycin Trough Rheumatoid Factor Complement C4 Miscellaneous Test Crossmatch 10/22/16 10/22/16 10/22/16 06:40 06:40 06:40 WBC 14.0 H RBC 2.03 L Hgb 7.0 L Hct 20.5 L MCV 98 H MCH 34 H MCHC 35 H RDW 17.8 H Plt Count Lymph % (Auto) [place] % (Auto) 9.9 H Lymph # [place] # 1.4 H Baso # 0.2 H Seg Neutrophils % 72.0 H Seg Neuts % (Manual) Lymphocytes % (Manual) Monocytes % (Manual) Eosinophils % (Manual) Basophils % (Manual) Nucleated RBC % Seg Neutrophils # 10.0 H Seg Neutrophils # Man Lymphocytes # (Manual) Monocytes # (Manual) Eosinophils # (Manual) Basophils # (Manual) PT INR Fibrinogen dRVVT Confirm Interp Factor V Activity POC ABG pH POC ABG pCO2 POC ABG pO2 ABG pO2 ABG HCO3 ABG Base Excess ABG Hemoglobin Oxyhemoglobin Sodium 130 L D Potassium Chloride 92.4 L Carbon Dioxide 20 L BUN 50 H Creatinine 1.6 H Glucose 589 H* POC Glucose Lactic Acid Calcium 7.8 L D Phosphorus Magnesium 1.60 L Direct Bilirubin AST ALT Alkaline Phosphatase Lactate Dehydrogenase Troponin T C-Reactive Protein Total Protein Albumin Prealbumin Triglycerides Cholesterol LDL Cholesterol Direct HDL Cholesterol Urine pH Urine WBC (Auto) Urine Creatinine Urine Total Protein Fluid Total Protein Vancomycin Trough Rheumatoid Factor Complement C4 Miscellaneous Test Crossmatch 10/22/16 10/22/16 10/22/16 11:39 16:44 23:36 WBC RBC Hgb Hct MCV MCH MCHC RDW Plt Count Lymph % (Auto) [place] % (Auto) Lymph # [place] # Baso # Seg Neutrophils % Seg Neuts % (Manual) Lymphocytes % (Manual) Monocytes % (Manual) Eosinophils % (Manual) Basophils % (Manual) Nucleated RBC % Seg Neutrophils # Seg Neutrophils # Man Lymphocytes # (Manual) Monocytes # (Manual) Eosinophils # (Manual) Basophils # (Manual) PT INR Fibrinogen dRVVT Confirm Interp Factor V Activity POC ABG pH POC ABG pCO2 POC ABG pO2 ABG pO2 ABG HCO3 ABG Base Excess ABG Hemoglobin Oxyhemoglobin Sodium Potassium Chloride Carbon Dioxide BUN Creatinine Glucose POC Glucose 142 H 163 H 123 H Lactic Acid Calcium Phosphorus Magnesium Direct Bilirubin AST ALT Alkaline Phosphatase Lactate Dehydrogenase Troponin T C-Reactive Protein Total Protein Albumin Prealbumin Triglycerides Cholesterol LDL Cholesterol Direct HDL Cholesterol Urine pH Urine WBC (Auto) Urine Creatinine Urine Total Protein Fluid Total Protein Vancomycin Trough Rheumatoid Factor Complement C4 Miscellaneous Test Crossmatch 10/23/16 10/23/16 10/23/16 04:58 06:00 12:12 WBC RBC Hgb Hct MCV MCH MCHC RDW Plt Count Lymph % (Auto) [place] % (Auto) Lymph # [place] # Baso # Seg Neutrophils % Seg Neuts % (Manual) Lymphocytes % (Manual) Monocytes % (Manual) Eosinophils % (Manual) Basophils % (Manual) Nucleated RBC % Seg Neutrophils # Seg Neutrophils # Man Lymphocytes # (Manual) Monocytes # (Manual) Eosinophils # (Manual) Basophils # (Manual) PT INR Fibrinogen dRVVT Confirm Interp Factor V Activity POC ABG pH POC ABG pCO2 POC ABG pO2 ABG pO2 ABG HCO3 ABG Base Excess ABG Hemoglobin Oxyhemoglobin Sodium 133 L Potassium 3.5 L Chloride 96.1 L Carbon Dioxide 18 L BUN 76 H Creatinine 2.1 H Glucose POC Glucose 133 H 138 H Lactic Acid Calcium 8.3 L Phosphorus Magnesium Direct Bilirubin AST ALT Alkaline Phosphatase Lactate Dehydrogenase Troponin T C-Reactive Protein Total Protein Albumin Prealbumin Triglycerides Cholesterol LDL Cholesterol Direct HDL Cholesterol Urine pH Urine WBC (Auto) Urine Creatinine Urine Total Protein Fluid Total Protein Vancomycin Trough Rheumatoid Factor Complement C4 Miscellaneous Test Crossmatch 10/23/16 10/23/16 10/24/16 16:53 23:37 04:00 WBC RBC Hgb Hct MCV MCH MCHC RDW Plt Count Lymph % (Auto) [place] % (Auto) Lymph # [place] # Baso # Seg Neutrophils % Seg Neuts % (Manual) Lymphocytes % (Manual) Monocytes % (Manual) Eosinophils % (Manual) Basophils % (Manual) Nucleated RBC % Seg Neutrophils # Seg Neutrophils # Man Lymphocytes # (Manual) Monocytes # (Manual) Eosinophils # (Manual) Basophils # (Manual) PT INR Fibrinogen dRVVT Confirm Interp Factor V Activity POC ABG pH POC ABG pCO2 POC ABG pO2 ABG pO2 ABG HCO3 ABG Base Excess ABG Hemoglobin Oxyhemoglobin Sodium 131 L Potassium Chloride 94.5 L Carbon Dioxide 19 L BUN 97 H Creatinine 2.6 H Glucose 110 H POC Glucose 125 H 123 H Lactic Acid Calcium 8.3 L Phosphorus Magnesium Direct Bilirubin AST ALT Alkaline Phosphatase Lactate Dehydrogenase Troponin T C-Reactive Protein Total Protein Albumin Prealbumin Triglycerides Cholesterol LDL Cholesterol Direct HDL Cholesterol Urine pH Urine WBC (Auto) Urine Creatinine Urine Total Protein Fluid Total Protein Vancomycin Trough Rheumatoid Factor Complement C4 Miscellaneous Test Crossmatch 10/24/16 10/24/16 10/24/16 07:49 11:39 17:52 WBC RBC Hgb 6.0 L Hct 19.7 L* MCV MCH MCHC RDW Plt Count Lymph % (Auto) [place] % (Auto) Lymph # [place] # Baso # Seg Neutrophils % Seg Neuts % (Manual) Lymphocytes % (Manual) Monocytes % (Manual) Eosinophils % (Manual) Basophils % (Manual) Nucleated RBC % Seg Neutrophils # Seg Neutrophils # Man Lymphocytes # (Manual) Monocytes # (Manual) Eosinophils # (Manual) Basophils # (Manual) PT INR Fibrinogen dRVVT Confirm Interp Factor V Activity POC ABG pH POC ABG pCO2 POC ABG pO2 ABG pO2 ABG HCO3 ABG Base Excess ABG Hemoglobin Oxyhemoglobin Sodium Potassium Chloride Carbon Dioxide BUN Creatinine Glucose POC Glucose 106 H 158 H Lactic Acid Calcium Phosphorus Magnesium Direct Bilirubin AST ALT Alkaline Phosphatase Lactate Dehydrogenase Troponin T C-Reactive Protein Total Protein Albumin Prealbumin Triglycerides Cholesterol LDL Cholesterol Direct HDL Cholesterol Urine pH Urine WBC (Auto) Urine Creatinine Urine Total Protein Fluid Total Protein Vancomycin Trough Rheumatoid Factor Complement C4 Miscellaneous Test Crossmatch 10/24/16 10/24/16 10/24/16 20:00 22:27 Unknown WBC RBC Hgb 9.4 L D Hct 27.5 L D MCV MCH MCHC RDW Plt Count Lymph % (Auto) [place] % (Auto) Lymph # [place] # Baso # Seg Neutrophils % Seg Neuts % (Manual) Lymphocytes % (Manual) Monocytes % (Manual) Eosinophils % (Manual) Basophils % (Manual) Nucleated RBC % Seg Neutrophils # Seg Neutrophils # Man Lymphocytes # (Manual) Monocytes # (Manual) Eosinophils # (Manual) Basophils # (Manual) PT INR Fibrinogen dRVVT Confirm Interp Factor V Activity POC ABG pH POC ABG pCO2 POC ABG pO2 ABG pO2 ABG HCO3 ABG Base Excess ABG Hemoglobin Oxyhemoglobin Sodium Potassium Chloride Carbon Dioxide BUN Creatinine Glucose POC Glucose 125 H Lactic Acid Calcium Phosphorus Magnesium Direct Bilirubin AST ALT Alkaline Phosphatase Lactate Dehydrogenase Troponin T C-Reactive Protein Total Protein Albumin Prealbumin Triglycerides Cholesterol LDL Cholesterol Direct HDL Cholesterol Urine pH Urine WBC (Auto) Urine Creatinine Urine Total Protein Fluid Total Protein Vancomycin Trough Rheumatoid Factor Complement C4 Miscellaneous Test Crossmatch See Detail 10/25/16 10/25/16 10/25/16 04:00 04:00 04:00 WBC 14.2 H RBC 2.98 L Hgb 9.0 L Hct 26.2 L MCV MCH MCHC RDW 16.6 H Plt Count Lymph % (Auto) [place] % (Auto) 10.7 H Lymph # [place] # 1.5 H Baso # Seg Neutrophils % 73.6 H Seg Neuts % (Manual) Lymphocytes % (Manual) Monocytes % (Manual) Eosinophils % (Manual) Basophils % (Manual) Nucleated RBC % Seg Neutrophils # 10.5 H Seg Neutrophils # Man Lymphocytes # (Manual) Monocytes # (Manual) Eosinophils # (Manual) Basophils # (Manual) PT INR Fibrinogen dRVVT Confirm Interp Factor V Activity POC ABG pH POC ABG pCO2 POC ABG pO2 ABG pO2 ABG HCO3 ABG Base Excess ABG Hemoglobin Oxyhemoglobin Sodium 132 L Potassium Chloride 94.7 L Carbon Dioxide BUN 51 H Creatinine 1.6 H Glucose 130 H POC Glucose Lactic Acid Calcium 8.3 L Phosphorus 1.60 L D Magnesium Direct Bilirubin AST ALT Alkaline Phosphatase Lactate Dehydrogenase Troponin T C-Reactive Protein Total Protein Albumin Prealbumin Triglycerides Cholesterol LDL Cholesterol Direct HDL Cholesterol Urine pH Urine WBC (Auto) Urine Creatinine Urine Total Protein Fluid Total Protein Vancomycin Trough Rheumatoid Factor Complement C4 Miscellaneous Test Crossmatch 10/25/16 10/25/16 10/25/16 04:32 11:48 17:22 WBC RBC Hgb Hct MCV MCH MCHC RDW Plt Count Lymph % (Auto) [place] % (Auto) Lymph # [place] # Baso # Seg Neutrophils % Seg Neuts % (Manual) Lymphocytes % (Manual) Monocytes % (Manual) Eosinophils % (Manual) Basophils % (Manual) Nucleated RBC % Seg Neutrophils # Seg Neutrophils # Man Lymphocytes # (Manual) Monocytes # (Manual) Eosinophils # (Manual) Basophils # (Manual) PT INR Fibrinogen dRVVT Confirm Interp Factor V Activity POC ABG pH POC ABG pCO2 POC ABG pO2 ABG pO2 ABG HCO3 ABG Base Excess ABG Hemoglobin Oxyhemoglobin Sodium Potassium Chloride Carbon Dioxide BUN Creatinine Glucose POC Glucose 124 H 171 H 120 H Lactic Acid Calcium Phosphorus Magnesium Direct Bilirubin AST ALT Alkaline Phosphatase Lactate Dehydrogenase Troponin T C-Reactive Protein Total Protein Albumin Prealbumin Triglycerides Cholesterol LDL Cholesterol Direct HDL Cholesterol Urine pH Urine WBC (Auto) Urine Creatinine Urine Total Protein Fluid Total Protein Vancomycin Trough Rheumatoid Factor Complement C4 Miscellaneous Test Crossmatch 10/26/16 10/26/16 10/26/16 04:54 07:06 07:06 WBC 16.9 H RBC 3.06 L Hgb 9.1 L Hct 26.9 L MCV MCH MCHC RDW 16.9 H Plt Count Lymph % (Auto) [place] % (Auto) Lymph # [place] # Baso # Seg Neutrophils % Seg Neuts % (Manual) 71.0 H Lymphocytes % (Manual) 5.0 L Monocytes % (Manual) 12.0 H Eosinophils % (Manual) Basophils % (Manual) Nucleated RBC % Seg Neutrophils # Seg Neutrophils # Man 12.0 H Lymphocytes # (Manual) 0.8 L Monocytes # (Manual) 2.0 H Eosinophils # (Manual) Basophils # (Manual) PT INR Fibrinogen dRVVT Confirm Interp Factor V Activity POC ABG pH POC ABG pCO2 POC ABG pO2 ABG pO2 ABG HCO3 ABG Base Excess ABG Hemoglobin Oxyhemoglobin Sodium 135 L Potassium Chloride 97.1 L Carbon Dioxide BUN 73 H Creatinine 2.2 H Glucose 117 H POC Glucose 123 H Lactic Acid Calcium Phosphorus 1.70 L Magnesium Direct Bilirubin AST ALT Alkaline Phosphatase Lactate Dehydrogenase Troponin T C-Reactive Protein Total Protein Albumin Prealbumin Triglycerides Cholesterol LDL Cholesterol Direct HDL Cholesterol Urine pH Urine WBC (Auto) Urine Creatinine Urine Total Protein Fluid Total Protein Vancomycin Trough Rheumatoid Factor Complement C4 Miscellaneous Test Crossmatch 10/26/16 10/26/16 10/26/16 12:12 17:29 23:42 WBC RBC Hgb Hct MCV MCH MCHC RDW Plt Count Lymph % (Auto) [place] % (Auto) Lymph # [place] # Baso # Seg Neutrophils % Seg Neuts % (Manual) Lymphocytes % (Manual) Monocytes % (Manual) Eosinophils % (Manual) Basophils % (Manual) Nucleated RBC % Seg Neutrophils # Seg Neutrophils # Man Lymphocytes # (Manual) Monocytes # (Manual) Eosinophils # (Manual) Basophils # (Manual) PT INR Fibrinogen dRVVT Confirm Interp Factor V Activity POC ABG pH POC ABG pCO2 POC ABG pO2 ABG pO2 ABG HCO3 ABG Base Excess ABG Hemoglobin Oxyhemoglobin Sodium Potassium Chloride Carbon Dioxide BUN Creatinine Glucose POC Glucose 126 H 161 H 118 H Lactic Acid Calcium Phosphorus Magnesium Direct Bilirubin AST ALT Alkaline Phosphatase Lactate Dehydrogenase Troponin T C-Reactive Protein Total Protein Albumin Prealbumin Triglycerides Cholesterol LDL Cholesterol Direct HDL Cholesterol Urine pH Urine WBC (Auto) Urine Creatinine Urine Total Protein Fluid Total Protein Vancomycin Trough Rheumatoid Factor Complement C4 Miscellaneous Test Crossmatch 10/27/16 10/27/16 10/27/16 05:03 06:30 06:30 WBC 13.9 H RBC 3.09 L Hgb 9.2 L Hct 27.5 L MCV MCH MCHC RDW 17.0 H Plt Count Lymph % (Auto) [place] % (Auto) Lymph # [place] # Baso # Seg Neutrophils % Seg Neuts % (Manual) 78.0 H Lymphocytes % (Manual) Monocytes % (Manual) Eosinophils % (Manual) Basophils % (Manual) Nucleated RBC % 2.0 H Seg Neutrophils # Seg Neutrophils # Man 10.8 H Lymphocytes # (Manual) Monocytes # (Manual) 1.0 H Eosinophils # (Manual) Basophils # (Manual) PT INR Fibrinogen dRVVT Confirm Interp Factor V Activity POC ABG pH POC ABG pCO2 POC ABG pO2 ABG pO2 ABG HCO3 ABG Base Excess ABG Hemoglobin Oxyhemoglobin Sodium Potassium Chloride Carbon Dioxide BUN 40 H Creatinine 1.5 H Glucose 135 H POC Glucose 107 H Lactic Acid Calcium 8.3 L Phosphorus 1.30 L D Magnesium Direct Bilirubin AST ALT Alkaline Phosphatase Lactate Dehydrogenase Troponin T C-Reactive Protein Total Protein Albumin Prealbumin Triglycerides Cholesterol LDL Cholesterol Direct HDL Cholesterol Urine pH Urine WBC (Auto) Urine Creatinine Urine Total Protein Fluid Total Protein Vancomycin Trough Rheumatoid Factor Complement C4 Miscellaneous Test Crossmatch 10/27/16 10/27/16 10/27/16 13:27 18:07 23:40 WBC RBC Hgb Hct MCV MCH MCHC RDW Plt Count Lymph % (Auto) [place] % (Auto) Lymph # [place] # Baso # Seg Neutrophils % Seg Neuts % (Manual) Lymphocytes % (Manual) Monocytes % (Manual) Eosinophils % (Manual) Basophils % (Manual) Nucleated RBC % Seg Neutrophils # Seg Neutrophils # Man Lymphocytes # (Manual) Monocytes # (Manual) Eosinophils # (Manual) Basophils # (Manual) PT INR Fibrinogen dRVVT Confirm Interp Factor V Activity POC ABG pH POC ABG pCO2 POC ABG pO2 ABG pO2 ABG HCO3 ABG Base Excess ABG Hemoglobin Oxyhemoglobin Sodium Potassium Chloride Carbon Dioxide BUN Creatinine Glucose POC Glucose 117 H 121 H 118 H Lactic Acid Calcium Phosphorus Magnesium Direct Bilirubin AST ALT Alkaline Phosphatase Lactate Dehydrogenase Troponin T C-Reactive Protein Total Protein Albumin Prealbumin Triglycerides Cholesterol LDL Cholesterol Direct HDL Cholesterol Urine pH Urine WBC (Auto) Urine Creatinine Urine Total Protein Fluid Total Protein Vancomycin Trough Rheumatoid Factor Complement C4 Miscellaneous Test Crossmatch 10/28/16 10/28/16 10/28/16 05:48 06:45 06:45 WBC 14.7 H RBC 3.05 L Hgb 9.0 L Hct 26.9 L MCV MCH MCHC RDW 16.8 H Plt Count Lymph % (Auto) 8.2 L [place] % (Auto) 8.4 H Lymph # [place] # 1.2 H Baso # Seg Neutrophils % 81.9 H Seg Neuts % (Manual) Lymphocytes % (Manual) Monocytes % (Manual) Eosinophils % (Manual) Basophils % (Manual) Nucleated RBC % Seg Neutrophils # 12.1 H Seg Neutrophils # Man Lymphocytes # (Manual) Monocytes # (Manual) Eosinophils # (Manual) Basophils # (Manual) PT INR Fibrinogen dRVVT Confirm Interp Factor V Activity POC ABG pH POC ABG pCO2 POC ABG pO2 ABG pO2 ABG HCO3 ABG Base Excess ABG Hemoglobin Oxyhemoglobin Sodium Potassium Chloride Carbon Dioxide BUN 60 H Creatinine 1.9 H Glucose 120 H POC Glucose 114 H Lactic Acid Calcium Phosphorus Magnesium Direct Bilirubin AST ALT Alkaline Phosphatase Lactate Dehydrogenase Troponin T C-Reactive Protein Total Protein Albumin Prealbumin Triglycerides Cholesterol LDL Cholesterol Direct HDL Cholesterol Urine pH Urine WBC (Auto) Urine Creatinine Urine Total Protein Fluid Total Protein Vancomycin Trough Rheumatoid Factor Complement C4 Miscellaneous Test Crossmatch 10/28/16 10/28/16 10/29/16 17:08 23:50 05:10 WBC RBC Hgb Hct MCV MCH MCHC RDW Plt Count Lymph % (Auto) [place] % (Auto) Lymph # [place] # Baso # Seg Neutrophils % Seg Neuts % (Manual) Lymphocytes % (Manual) Monocytes % (Manual) Eosinophils % (Manual) Basophils % (Manual) Nucleated RBC % Seg Neutrophils # Seg Neutrophils # Man Lymphocytes # (Manual) Monocytes # (Manual) Eosinophils # (Manual) Basophils # (Manual) PT INR Fibrinogen dRVVT Confirm Interp Factor V Activity POC ABG pH POC ABG pCO2 POC ABG pO2 ABG pO2 ABG HCO3 ABG Base Excess ABG Hemoglobin Oxyhemoglobin Sodium Potassium Chloride Carbon Dioxide BUN Creatinine Glucose POC Glucose 109 H 110 H 124 H Lactic Acid Calcium Phosphorus Magnesium Direct Bilirubin AST ALT Alkaline Phosphatase Lactate Dehydrogenase Troponin T C-Reactive Protein Total Protein Albumin Prealbumin Triglycerides Cholesterol LDL Cholesterol Direct HDL Cholesterol Urine pH Urine WBC (Auto) Urine Creatinine Urine Total Protein Fluid Total Protein Vancomycin Trough Rheumatoid Factor Complement C4 Miscellaneous Test Crossmatch 10/29/16 10/29/16 10/29/16 07:45 07:45 12:19 WBC 14.7 H RBC 3.15 L Hgb 9.3 L Hct 28.9 L MCV MCH MCHC RDW 17.0 H Plt Count Lymph % (Auto) 11.9 L [place] % (Auto) 8.6 H Lymph # [place] # 1.3 H Baso # Seg Neutrophils % 78.1 H Seg Neuts % (Manual) Lymphocytes % (Manual) Monocytes % (Manual) Eosinophils % (Manual) Basophils % (Manual) Nucleated RBC % Seg Neutrophils # 11.4 H Seg Neutrophils # Man Lymphocytes # (Manual) Monocytes # (Manual) Eosinophils # (Manual) Basophils # (Manual) PT INR Fibrinogen dRVVT Confirm Interp Factor V Activity POC ABG pH POC ABG pCO2 POC ABG pO2 ABG pO2 ABG HCO3 ABG Base Excess ABG Hemoglobin Oxyhemoglobin Sodium Potassium 5.1 H Chloride Carbon Dioxide 19 L BUN 78 H Creatinine 2.2 H Glucose 116 H POC Glucose 118 H Lactic Acid Calcium Phosphorus Magnesium Direct Bilirubin AST ALT Alkaline Phosphatase Lactate Dehydrogenase Troponin T C-Reactive Protein Total Protein Albumin Prealbumin Triglycerides Cholesterol LDL Cholesterol Direct HDL Cholesterol Urine pH Urine WBC (Auto) Urine Creatinine Urine Total Protein Fluid Total Protein Vancomycin Trough Rheumatoid Factor Complement C4 Miscellaneous Test Crossmatch 10/29/16 10/30/16 10/30/16 17:49 01:52 03:28 WBC RBC Hgb Hct MCV MCH MCHC RDW Plt Count Lymph % (Auto) [place] % (Auto) Lymph # [place] # Baso # Seg Neutrophils % Seg Neuts % (Manual) Lymphocytes % (Manual) Monocytes % (Manual) Eosinophils % (Manual) Basophils % (Manual) Nucleated RBC % Seg Neutrophils # Seg Neutrophils # Man Lymphocytes # (Manual) Monocytes # (Manual) Eosinophils # (Manual) Basophils # (Manual) PT INR Fibrinogen dRVVT Confirm Interp Factor V Activity POC ABG pH POC ABG pCO2 POC ABG pO2 ABG pO2 ABG HCO3 ABG Base Excess ABG Hemoglobin Oxyhemoglobin Sodium Potassium 5.4 H Chloride 97.5 L Carbon Dioxide 19 L BUN 90 H Creatinine 2.5 H Glucose POC Glucose 120 H 129 H Lactic Acid Calcium Phosphorus 5.20 H Magnesium Direct Bilirubin AST ALT Alkaline Phosphatase Lactate Dehydrogenase Troponin T C-Reactive Protein Total Protein Albumin Prealbumin Triglycerides Cholesterol LDL Cholesterol Direct HDL Cholesterol Urine pH Urine WBC (Auto) Urine Creatinine Urine Total Protein Fluid Total Protein Vancomycin Trough Rheumatoid Factor Complement C4 Miscellaneous Test Crossmatch 10/30/16 10/30/16 10/30/16 03:28 08:19 08:19 WBC 11.6 H 15.9 H RBC 2.75 L 2.82 L Hgb 7.9 L 8.3 L Hct 24.2 L 25.2 L MCV MCH MCHC RDW 16.7 H 17.2 H Plt Count Lymph % (Auto) [place] % (Auto) 9.8 H Lymph # [place] # 1.1 H Baso # Seg Neutrophils % 74.2 H Seg Neuts % (Manual) Lymphocytes % (Manual) Monocytes % (Manual) Eosinophils % (Manual) Basophils % (Manual) Nucleated RBC % Seg Neutrophils # 8.6 H Seg Neutrophils # Man Lymphocytes # (Manual) Monocytes # (Manual) Eosinophils # (Manual) Basophils # (Manual) PT INR Fibrinogen dRVVT Confirm Interp Factor V Activity POC ABG pH POC ABG pCO2 POC ABG pO2 ABG pO2 ABG HCO3 ABG Base Excess ABG Hemoglobin Oxyhemoglobin Sodium Potassium 5.3 H Chloride 97.4 L Carbon Dioxide 19 L BUN 93 H Creatinine 2.6 H Glucose POC Glucose Lactic Acid Calcium Phosphorus Magnesium Direct Bilirubin AST ALT Alkaline Phosphatase Lactate Dehydrogenase Troponin T C-Reactive Protein Total Protein Albumin Prealbumin Triglycerides Cholesterol LDL Cholesterol Direct HDL Cholesterol Urine pH Urine WBC (Auto) Urine Creatinine Urine Total Protein Fluid Total Protein Vancomycin Trough Rheumatoid Factor Complement C4 Miscellaneous Test Crossmatch 10/30/16 10/30/16 10/31/16 17:11 23:56 00:40 WBC RBC Hgb Hct MCV MCH MCHC RDW Plt Count Lymph % (Auto) [place] % (Auto) Lymph # [place] # Baso # Seg Neutrophils % Seg Neuts % (Manual) Lymphocytes % (Manual) Monocytes % (Manual) Eosinophils % (Manual) Basophils % (Manual) Nucleated RBC % Seg Neutrophils # Seg Neutrophils # Man Lymphocytes # (Manual) Monocytes # (Manual) Eosinophils # (Manual) Basophils # (Manual) PT INR Fibrinogen dRVVT Confirm Interp Factor V Activity POC ABG pH POC ABG pCO2 POC ABG pO2 ABG pO2 ABG HCO3 ABG Base Excess ABG Hemoglobin Oxyhemoglobin Sodium Potassium Chloride Carbon Dioxide BUN Creatinine Glucose POC Glucose 106 H 117 H 120 H Lactic Acid Calcium Phosphorus Magnesium Direct Bilirubin AST ALT Alkaline Phosphatase Lactate Dehydrogenase Troponin T C-Reactive Protein Total Protein Albumin Prealbumin Triglycerides Cholesterol LDL Cholesterol Direct HDL Cholesterol Urine pH Urine WBC (Auto) Urine Creatinine Urine Total Protein Fluid Total Protein Vancomycin Trough Rheumatoid Factor Complement C4 Miscellaneous Test Crossmatch 10/31/16 10/31/16 10/31/16 05:43 07:15 07:15 WBC 12.1 H RBC 2.63 L Hgb 7.7 L Hct 23.3 L MCV MCH MCHC RDW 16.7 H Plt Count Lymph % (Auto) 11.7 L [place] % (Auto) 7.7 H Lymph # [place] # 0.9 H Baso # Seg Neutrophils % 78.0 H Seg Neuts % (Manual) Lymphocytes % (Manual) Monocytes % (Manual) Eosinophils % (Manual) Basophils % (Manual) Nucleated RBC % Seg Neutrophils # 9.4 H Seg Neutrophils # Man Lymphocytes # (Manual) Monocytes # (Manual) Eosinophils # (Manual) Basophils # (Manual) PT INR Fibrinogen dRVVT Confirm Interp Factor V Activity POC ABG pH POC ABG pCO2 POC ABG pO2 ABG pO2 ABG HCO3 ABG Base Excess ABG Hemoglobin Oxyhemoglobin Sodium Potassium Chloride 96.4 L Carbon Dioxide 21 L BUN 99 H Creatinine 2.6 H Glucose 144 H POC Glucose 125 H Lactic Acid Calcium Phosphorus 4.80 H Magnesium Direct Bilirubin AST ALT Alkaline Phosphatase Lactate Dehydrogenase Troponin T C-Reactive Protein Total Protein Albumin Prealbumin Triglycerides Cholesterol LDL Cholesterol Direct HDL Cholesterol Urine pH Urine WBC (Auto) Urine Creatinine Urine Total Protein Fluid Total Protein Vancomycin Trough Rheumatoid Factor Complement C4 Miscellaneous Test Crossmatch 10/31/16 10/31/16 11/01/16 11:46 18:34 00:20 WBC RBC Hgb Hct MCV MCH MCHC RDW Plt Count Lymph % (Auto) [place] % (Auto) Lymph # [place] # Baso # Seg Neutrophils % Seg Neuts % (Manual) Lymphocytes % (Manual) Monocytes % (Manual) Eosinophils % (Manual) Basophils % (Manual) Nucleated RBC % Seg Neutrophils # Seg Neutrophils # Man Lymphocytes # (Manual) Monocytes # (Manual) Eosinophils # (Manual) Basophils # (Manual) PT INR Fibrinogen dRVVT Confirm Interp Factor V Activity POC ABG pH POC ABG pCO2 POC ABG pO2 ABG pO2 ABG HCO3 ABG Base Excess ABG Hemoglobin Oxyhemoglobin Sodium Potassium Chloride Carbon Dioxide BUN Creatinine Glucose POC Glucose 159 H 140 H 132 H Lactic Acid Calcium Phosphorus Magnesium Direct Bilirubin AST ALT Alkaline Phosphatase Lactate Dehydrogenase Troponin T C-Reactive Protein Total Protein Albumin Prealbumin Triglycerides Cholesterol LDL Cholesterol Direct HDL Cholesterol Urine pH Urine WBC (Auto) Urine Creatinine Urine Total Protein Fluid Total Protein Vancomycin Trough Rheumatoid Factor Complement C4 Miscellaneous Test Crossmatch 11/01/16 11/01/16 11/01/16 04:55 04:55 06:11 WBC 11.2 H RBC 2.68 L Hgb 7.5 L Hct 23.7 L MCV MCH MCHC RDW 16.1 H Plt Count Lymph % (Auto) [place] % (Auto) 9.8 H Lymph # [place] # 1.1 H Baso # Seg Neutrophils % 70.8 H Seg Neuts % (Manual) Lymphocytes % (Manual) Monocytes % (Manual) Eosinophils % (Manual) Basophils % (Manual) Nucleated RBC % Seg Neutrophils # 7.9 H Seg Neutrophils # Man Lymphocytes # (Manual) Monocytes # (Manual) Eosinophils # (Manual) Basophils # (Manual) PT INR Fibrinogen dRVVT Confirm Interp Factor V Activity POC ABG pH POC ABG pCO2 POC ABG pO2 ABG pO2 ABG HCO3 ABG Base Excess ABG Hemoglobin Oxyhemoglobin Sodium Potassium 3.3 L D Chloride Carbon Dioxide BUN 61 H Creatinine 1.9 H Glucose 114 H POC Glucose 115 H Lactic Acid Calcium Phosphorus 1.80 L D Magnesium Direct Bilirubin AST ALT Alkaline Phosphatase Lactate Dehydrogenase Troponin T C-Reactive Protein Total Protein Albumin Prealbumin Triglycerides Cholesterol LDL Cholesterol Direct HDL Cholesterol Urine pH Urine WBC (Auto) Urine Creatinine Urine Total Protein Fluid Total Protein Vancomycin Trough Rheumatoid Factor Complement C4 Miscellaneous Test Crossmatch 11/01/16 11/01/16 11/01/16 12:29 18:23 23:58 WBC RBC Hgb Hct MCV MCH MCHC RDW Plt Count Lymph % (Auto) [place] % (Auto) Lymph # [place] # Baso # Seg Neutrophils % Seg Neuts % (Manual) Lymphocytes % (Manual) Monocytes % (Manual) Eosinophils % (Manual) Basophils % (Manual) Nucleated RBC % Seg Neutrophils # Seg Neutrophils # Man Lymphocytes # (Manual) Monocytes # (Manual) Eosinophils # (Manual) Basophils # (Manual) PT INR Fibrinogen dRVVT Confirm Interp Factor V Activity POC ABG pH POC ABG pCO2 POC ABG pO2 ABG pO2 ABG HCO3 ABG Base Excess ABG Hemoglobin Oxyhemoglobin Sodium Potassium Chloride Carbon Dioxide BUN Creatinine Glucose POC Glucose 142 H 143 H 128 H Lactic Acid Calcium Phosphorus Magnesium Direct Bilirubin AST ALT Alkaline Phosphatase Lactate Dehydrogenase Troponin T C-Reactive Protein Total Protein Albumin Prealbumin Triglycerides Cholesterol LDL Cholesterol Direct HDL Cholesterol Urine pH Urine WBC (Auto) Urine Creatinine Urine Total Protein Fluid Total Protein Vancomycin Trough Rheumatoid Factor Complement C4 Miscellaneous Test Crossmatch 11/02/16 11/02/16 11/02/16 04:16 05:29 11:58 WBC RBC Hgb Hct MCV MCH MCHC RDW Plt Count Lymph % (Auto) [place] % (Auto) Lymph # [place] # Baso # Seg Neutrophils % Seg Neuts % (Manual) Lymphocytes % (Manual) Monocytes % (Manual) Eosinophils % (Manual) Basophils % (Manual) Nucleated RBC % Seg Neutrophils # Seg Neutrophils # Man Lymphocytes # (Manual) Monocytes # (Manual) Eosinophils # (Manual) Basophils # (Manual) PT INR Fibrinogen dRVVT Confirm Interp Factor V Activity POC ABG pH POC ABG pCO2 POC ABG pO2 ABG pO2 ABG HCO3 ABG Base Excess ABG Hemoglobin Oxyhemoglobin Sodium Potassium 3.1 L Chloride Carbon Dioxide BUN 73 H Creatinine 2.3 H Glucose 112 H POC Glucose 135 H 149 H Lactic Acid Calcium Phosphorus Magnesium Direct Bilirubin AST ALT Alkaline Phosphatase Lactate Dehydrogenase Troponin T C-Reactive Protein Total Protein Albumin Prealbumin Triglycerides Cholesterol LDL Cholesterol Direct HDL Cholesterol Urine pH Urine WBC (Auto) Urine Creatinine Urine Total Protein Fluid Total Protein Vancomycin Trough Rheumatoid Factor Complement C4 Miscellaneous Test Crossmatch 11/02/16 11/02/16 11/03/16 17:42 22:54 06:00 WBC RBC Hgb Hct MCV MCH MCHC RDW Plt Count Lymph % (Auto) [place] % (Auto) Lymph # [place] # Baso # Seg Neutrophils % Seg Neuts % (Manual) Lymphocytes % (Manual) Monocytes % (Manual) Eosinophils % (Manual) Basophils % (Manual) Nucleated RBC % Seg Neutrophils # Seg Neutrophils # Man Lymphocytes # (Manual) Monocytes # (Manual) Eosinophils # (Manual) Basophils # (Manual) PT INR Fibrinogen dRVVT Confirm Interp Factor V Activity POC ABG pH POC ABG pCO2 POC ABG pO2 ABG pO2 ABG HCO3 ABG Base Excess ABG Hemoglobin Oxyhemoglobin Sodium Potassium Chloride 96.7 L Carbon Dioxide BUN 41 H Creatinine 1.5 H Glucose 145 H POC Glucose 182 H 115 H Lactic Acid Calcium Phosphorus 1.60 L D Magnesium 1.50 L Direct Bilirubin AST ALT Alkaline Phosphatase Lactate Dehydrogenase Troponin T C-Reactive Protein Total Protein Albumin Prealbumin Triglycerides Cholesterol LDL Cholesterol Direct HDL Cholesterol Urine pH Urine WBC (Auto) Urine Creatinine Urine Total Protein Fluid Total Protein Vancomycin Trough Rheumatoid Factor Complement C4 Miscellaneous Test Crossmatch 11/03/16 11/03/16 11/03/16 11:53 17:45 23:37 WBC RBC Hgb Hct MCV MCH MCHC RDW Plt Count Lymph % (Auto) [place] % (Auto) Lymph # [place] # Baso # Seg Neutrophils % Seg Neuts % (Manual) Lymphocytes % (Manual) Monocytes % (Manual) Eosinophils % (Manual) Basophils % (Manual) Nucleated RBC % Seg Neutrophils # Seg Neutrophils # Man Lymphocytes # (Manual) Monocytes # (Manual) Eosinophils # (Manual) Basophils # (Manual) PT INR Fibrinogen dRVVT Confirm Interp Factor V Activity POC ABG pH POC ABG pCO2 POC ABG pO2 ABG pO2 ABG HCO3 ABG Base Excess ABG Hemoglobin Oxyhemoglobin Sodium Potassium Chloride Carbon Dioxide BUN Creatinine Glucose POC Glucose 131 H 134 H 113 H Lactic Acid Calcium Phosphorus Magnesium Direct Bilirubin AST ALT Alkaline Phosphatase Lactate Dehydrogenase Troponin T C-Reactive Protein Total Protein Albumin Prealbumin Triglycerides Cholesterol LDL Cholesterol Direct HDL Cholesterol Urine pH Urine WBC (Auto) Urine Creatinine Urine Total Protein Fluid Total Protein Vancomycin Trough Rheumatoid Factor Complement C4 Miscellaneous Test Crossmatch 11/04/16 11/04/16 11/04/16 05:41 06:00 12:10 WBC RBC Hgb Hct MCV MCH MCHC RDW Plt Count Lymph % (Auto) [place] % (Auto) Lymph # [place] # Baso # Seg Neutrophils % Seg Neuts % (Manual) Lymphocytes % (Manual) Monocytes % (Manual) Eosinophils % (Manual) Basophils % (Manual) Nucleated RBC % Seg Neutrophils # Seg Neutrophils # Man Lymphocytes # (Manual) Monocytes # (Manual) Eosinophils # (Manual) Basophils # (Manual) PT INR Fibrinogen dRVVT Confirm Interp Factor V Activity POC ABG pH POC ABG pCO2 POC ABG pO2 ABG pO2 ABG HCO3 ABG Base Excess ABG Hemoglobin Oxyhemoglobin Sodium Potassium Chloride 96.7 L Carbon Dioxide BUN 52 H Creatinine 1.9 H Glucose 126 H POC Glucose 137 H 191 H Lactic Acid Calcium Phosphorus Magnesium Direct Bilirubin AST ALT Alkaline Phosphatase Lactate Dehydrogenase Troponin T C-Reactive Protein Total Protein Albumin Prealbumin Triglycerides Cholesterol LDL Cholesterol Direct HDL Cholesterol Urine pH Urine WBC (Auto) Urine Creatinine Urine Total Protein Fluid Total Protein Vancomycin Trough Rheumatoid Factor Complement C4 Miscellaneous Test Crossmatch 11/04/16 11/05/16 11/05/16 22:57 03:10 05:10 WBC RBC Hgb Hct MCV MCH MCHC RDW Plt Count Lymph % (Auto) [place] % (Auto) Lymph # [place] # Baso # Seg Neutrophils % Seg Neuts % (Manual) Lymphocytes % (Manual) Monocytes % (Manual) Eosinophils % (Manual) Basophils % (Manual) Nucleated RBC % Seg Neutrophils # Seg Neutrophils # Man Lymphocytes # (Manual) Monocytes # (Manual) Eosinophils # (Manual) Basophils # (Manual) PT INR Fibrinogen dRVVT Confirm Interp Factor V Activity POC ABG pH POC ABG pCO2 POC ABG pO2 ABG pO2 ABG HCO3 ABG Base Excess ABG Hemoglobin Oxyhemoglobin Sodium 136 L Potassium Chloride 97.2 L Carbon Dioxide BUN 32 H Creatinine 1.3 H Glucose 123 H POC Glucose 125 H 108 H Lactic Acid Calcium 7.8 L Phosphorus Magnesium Direct Bilirubin AST ALT Alkaline Phosphatase Lactate Dehydrogenase Troponin T C-Reactive Protein Total Protein Albumin Prealbumin Triglycerides Cholesterol LDL Cholesterol Direct HDL Cholesterol Urine pH Urine WBC (Auto) Urine Creatinine Urine Total Protein Fluid Total Protein Vancomycin Trough Rheumatoid Factor Complement C4 Miscellaneous Test Crossmatch 11/05/16 11/05/16 11/05/16 12:23 13:09 13:25 WBC RBC Hgb Hct MCV MCH MCHC RDW Plt Count Lymph % (Auto) [place] % (Auto) Lymph # [place] # Baso # Seg Neutrophils % Seg Neuts % (Manual) Lymphocytes % (Manual) Monocytes % (Manual) Eosinophils % (Manual) Basophils % (Manual) Nucleated RBC % Seg Neutrophils # Seg Neutrophils # Man Lymphocytes # (Manual) Monocytes # (Manual) Eosinophils # (Manual) Basophils # (Manual) PT INR Fibrinogen dRVVT Confirm Interp Factor V Activity POC ABG pH POC ABG pCO2 POC ABG pO2 ABG pO2 ABG HCO3 ABG Base Excess ABG Hemoglobin Oxyhemoglobin Sodium Potassium Chloride Carbon Dioxide BUN Creatinine Glucose POC Glucose 124 H Lactic Acid Calcium Phosphorus Magnesium Direct Bilirubin AST ALT Alkaline Phosphatase Lactate Dehydrogenase Troponin T C-Reactive Protein 11.40 H Total Protein Albumin Prealbumin Triglycerides Cholesterol LDL Cholesterol Direct HDL Cholesterol Urine pH 9.0 H Urine WBC (Auto) Urine Creatinine Urine Total Protein Fluid Total Protein Vancomycin Trough Rheumatoid Factor Complement C4 Miscellaneous Test Crossmatch 11/05/16 11/05/16 11/05/16 13:25 17:54 23:42 WBC RBC Hgb Hct MCV MCH MCHC RDW Plt Count Lymph % (Auto) [place] % (Auto) Lymph # [place] # Baso # Seg Neutrophils % Seg Neuts % (Manual) Lymphocytes % (Manual) Monocytes % (Manual) Eosinophils % (Manual) Basophils % (Manual) Nucleated RBC % Seg Neutrophils # Seg Neutrophils # Man Lymphocytes # (Manual) Monocytes # (Manual) Eosinophils # (Manual) Basophils # (Manual) PT INR Fibrinogen dRVVT Confirm Interp Factor V Activity POC ABG pH POC ABG pCO2 POC ABG pO2 ABG pO2 ABG HCO3 ABG Base Excess ABG Hemoglobin Oxyhemoglobin Sodium Potassium Chloride Carbon Dioxide BUN Creatinine Glucose POC Glucose 114 H 134 H Lactic Acid Calcium Phosphorus Magnesium Direct Bilirubin AST ALT Alkaline Phosphatase Lactate Dehydrogenase Troponin T C-Reactive Protein Total Protein Albumin Prealbumin Triglycerides Cholesterol LDL Cholesterol Direct HDL Cholesterol Urine pH Urine WBC (Auto) Urine Creatinine Urine Total Protein Fluid Total Protein Vancomycin Trough Rheumatoid Factor Complement C4 Miscellaneous Test Flexitest 1 H Crossmatch 11/06/16 11/06/16 11/06/16 04:56 06:25 06:25 WBC RBC 2.50 L Hgb 7.3 L Hct 22.5 L MCV MCH MCHC RDW 16.9 H Plt Count Lymph % (Auto) [place] % (Auto) 10.5 H Lymph # [place] # 1.1 H Baso # Seg Neutrophils % Seg Neuts % (Manual) Lymphocytes % (Manual) Monocytes % (Manual) Eosinophils % (Manual) Basophils % (Manual) Nucleated RBC % Seg Neutrophils # Seg Neutrophils # Man Lymphocytes # (Manual) Monocytes # (Manual) Eosinophils # (Manual) Basophils # (Manual) PT INR Fibrinogen dRVVT Confirm Interp Factor V Activity POC ABG pH POC ABG pCO2 POC ABG pO2 ABG pO2 ABG HCO3 ABG Base Excess ABG Hemoglobin Oxyhemoglobin Sodium Potassium 5.1 H Chloride 95.9 L Carbon Dioxide BUN 52 H Creatinine 1.8 H Glucose 117 H POC Glucose 120 H Lactic Acid Calcium Phosphorus Magnesium Direct Bilirubin AST 103 H ALT 77 H Alkaline Phosphatase 285 H Lactate Dehydrogenase Troponin T C-Reactive Protein Total Protein 6.2 L Albumin 1.8 L Prealbumin 0.180 L Triglycerides Cholesterol LDL Cholesterol Direct HDL Cholesterol Urine pH Urine WBC (Auto) Urine Creatinine Urine Total Protein Fluid Total Protein Vancomycin Trough Rheumatoid Factor Complement C4 Miscellaneous Test Crossmatch 11/06/16 11/06/16 11/06/16 11:56 17:14 23:52 WBC RBC Hgb Hct MCV MCH MCHC RDW Plt Count Lymph % (Auto) [place] % (Auto) Lymph # [place] # Baso # Seg Neutrophils % Seg Neuts % (Manual) Lymphocytes % (Manual) Monocytes % (Manual) Eosinophils % (Manual) Basophils % (Manual) Nucleated RBC % Seg Neutrophils # Seg Neutrophils # Man Lymphocytes # (Manual) Monocytes # (Manual) Eosinophils # (Manual) Basophils # (Manual) PT INR Fibrinogen dRVVT Confirm Interp Factor V Activity POC ABG pH POC ABG pCO2 POC ABG pO2 ABG pO2 ABG HCO3 ABG Base Excess ABG Hemoglobin Oxyhemoglobin Sodium Potassium Chloride Carbon Dioxide BUN Creatinine Glucose POC Glucose 141 H 125 H 130 H Lactic Acid Calcium Phosphorus Magnesium Direct Bilirubin AST ALT Alkaline Phosphatase Lactate Dehydrogenase Troponin T C-Reactive Protein Total Protein Albumin Prealbumin Triglycerides Cholesterol LDL Cholesterol Direct HDL Cholesterol Urine pH Urine WBC (Auto) Urine Creatinine Urine Total Protein Fluid Total Protein Vancomycin Trough Rheumatoid Factor Complement C4 Miscellaneous Test Crossmatch 11/07/16 11/07/16 11/07/16 06:30 06:30 09:37 WBC RBC 2.18 L Hgb 6.3 L Hct 19.7 L* MCV MCH MCHC RDW 16.8 H Plt Count Lymph % (Auto) [place] % (Auto) 10.0 H Lymph # [place] # 1.0 H Baso # Seg Neutrophils % Seg Neuts % (Manual) Lymphocytes % (Manual) Monocytes % (Manual) Eosinophils % (Manual) Basophils % (Manual) Nucleated RBC % Seg Neutrophils # Seg Neutrophils # Man Lymphocytes # (Manual) Monocytes # (Manual) Eosinophils # (Manual) Basophils # (Manual) PT INR Fibrinogen dRVVT Confirm Interp Factor V Activity POC ABG pH POC ABG pCO2 POC ABG pO2 ABG pO2 ABG HCO3 ABG Base Excess ABG Hemoglobin Oxyhemoglobin Sodium 135 L Potassium Chloride 95.6 L Carbon Dioxide BUN 70 H Creatinine 2.0 H Glucose 126 H POC Glucose Lactic Acid Calcium Phosphorus Magnesium Direct Bilirubin AST ALT Alkaline Phosphatase Lactate Dehydrogenase Troponin T C-Reactive Protein Total Protein Albumin Prealbumin Triglycerides Cholesterol LDL Cholesterol Direct HDL Cholesterol Urine pH Urine WBC (Auto) Urine Creatinine Urine Total Protein Fluid Total Protein Vancomycin Trough Rheumatoid Factor Complement C4 Miscellaneous Test Crossmatch See Detail 11/07/16 11/07/16 11/07/16 12:52 18:51 21:26 WBC RBC Hgb Hct MCV MCH MCHC RDW Plt Count Lymph % (Auto) [place] % (Auto) Lymph # [place] # Baso # Seg Neutrophils % Seg Neuts % (Manual) Lymphocytes % (Manual) Monocytes % (Manual) Eosinophils % (Manual) Basophils % (Manual) Nucleated RBC % Seg Neutrophils # Seg Neutrophils # Man Lymphocytes # (Manual) Monocytes # (Manual) Eosinophils # (Manual) Basophils # (Manual) PT INR Fibrinogen dRVVT Confirm Interp Factor V Activity POC ABG pH 7.523 H POC ABG pCO2 34.6 L POC ABG pO2 53 L ABG pO2 ABG HCO3 ABG Base Excess ABG Hemoglobin Oxyhemoglobin Sodium Potassium Chloride Carbon Dioxide BUN Creatinine Glucose POC Glucose 142 H 155 H Lactic Acid Calcium Phosphorus Magnesium Direct Bilirubin AST ALT Alkaline Phosphatase Lactate Dehydrogenase Troponin T C-Reactive Protein Total Protein Albumin Prealbumin Triglycerides Cholesterol LDL Cholesterol Direct HDL Cholesterol Urine pH Urine WBC (Auto) Urine Creatinine Urine Total Protein Fluid Total Protein Vancomycin Trough Rheumatoid Factor Complement C4 Miscellaneous Test Crossmatch 11/07/16 11/08/16 11/08/16 21:34 13:03 23:37 WBC RBC 2.63 L Hgb 7.7 L Hct 22.7 L MCV MCH MCHC RDW 17.0 H Plt Count Lymph % (Auto) [place] % (Auto) Lymph # [place] # Baso # Seg Neutrophils % Seg Neuts % (Manual) Lymphocytes % (Manual) Monocytes % (Manual) Eosinophils % (Manual) Basophils % (Manual) Nucleated RBC % Seg Neutrophils # Seg Neutrophils # Man Lymphocytes # (Manual) Monocytes # (Manual) Eosinophils # (Manual) Basophils # (Manual) PT INR Fibrinogen dRVVT Confirm Interp Factor V Activity POC ABG pH 7.478 H POC ABG pCO2 34.0 L POC ABG pO2 50 L ABG pO2 ABG HCO3 ABG Base Excess ABG Hemoglobin Oxyhemoglobin Sodium Potassium Chloride Carbon Dioxide BUN Creatinine Glucose POC Glucose 113 H Lactic Acid Calcium Phosphorus Magnesium Direct Bilirubin AST ALT Alkaline Phosphatase Lactate Dehydrogenase Troponin T C-Reactive Protein Total Protein Albumin Prealbumin Triglycerides Cholesterol LDL Cholesterol Direct HDL Cholesterol Urine pH Urine WBC (Auto) Urine Creatinine Urine Total Protein Fluid Total Protein Vancomycin Trough Rheumatoid Factor Complement C4 Miscellaneous Test Crossmatch 11/09/16 11/09/16 11/09/16 04:35 10:15 18:21 WBC RBC 2.68 L Hgb 7.8 L Hct 23.3 L MCV MCH MCHC RDW 17.0 H Plt Count Lymph % (Auto) [place] % (Auto) 12.1 H Lymph # [place] # 1.1 H Baso # Seg Neutrophils % Seg Neuts % (Manual) Lymphocytes % (Manual) Monocytes % (Manual) Eosinophils % (Manual) Basophils % (Manual) Nucleated RBC % Seg Neutrophils # Seg Neutrophils # Man Lymphocytes # (Manual) Monocytes # (Manual) Eosinophils # (Manual) Basophils # (Manual) PT INR Fibrinogen dRVVT Confirm Interp Factor V Activity POC ABG pH POC ABG pCO2 POC ABG pO2 ABG pO2 ABG HCO3 ABG Base Excess ABG Hemoglobin Oxyhemoglobin Sodium Potassium Chloride Carbon Dioxide BUN 51 H Creatinine 1.8 H Glucose POC Glucose 60 L Lactic Acid Calcium 8.3 L Phosphorus Magnesium Direct Bilirubin AST ALT Alkaline Phosphatase Lactate Dehydrogenase Troponin T C-Reactive Protein Total Protein Albumin Prealbumin Triglycerides Cholesterol LDL Cholesterol Direct HDL Cholesterol Urine pH Urine WBC (Auto) Urine Creatinine Urine Total Protein Fluid Total Protein Vancomycin Trough Rheumatoid Factor Complement C4 Miscellaneous Test Crossmatch 11/09/16 11/10/16 11/10/16 18:55 07:00 11:51 WBC RBC Hgb Hct MCV MCH MCHC RDW Plt Count Lymph % (Auto) [place] % (Auto) Lymph # [place] # Baso # Seg Neutrophils % Seg Neuts % (Manual) Lymphocytes % (Manual) Monocytes % (Manual) Eosinophils % (Manual) Basophils % (Manual) Nucleated RBC % Seg Neutrophils # Seg Neutrophils # Man Lymphocytes # (Manual) Monocytes # (Manual) Eosinophils # (Manual) Basophils # (Manual) PT INR Fibrinogen dRVVT Confirm Interp Factor V Activity POC ABG pH POC ABG pCO2 POC ABG pO2 ABG pO2 ABG HCO3 ABG Base Excess ABG Hemoglobin Oxyhemoglobin Sodium Potassium 3.0 L D Chloride 97.4 L Carbon Dioxide BUN 28 H Creatinine 1.3 H Glucose POC Glucose 68 L 120 H Lactic Acid Calcium 7.8 L Phosphorus Magnesium Direct Bilirubin AST ALT Alkaline Phosphatase Lactate Dehydrogenase Troponin T C-Reactive Protein Total Protein Albumin Prealbumin Triglycerides Cholesterol LDL Cholesterol Direct HDL Cholesterol Urine pH Urine WBC (Auto) Urine Creatinine Urine Total Protein Fluid Total Protein Vancomycin Trough Rheumatoid Factor Complement C4 Miscellaneous Test Crossmatch 11/10/16 11/11/16 11/11/16 14:20 06:59 06:59 WBC RBC 2.81 L Hgb 8.1 L Hct 24.4 L MCV MCH MCHC RDW 16.4 H Plt Count Lymph % (Auto) [place] % (Auto) 10.8 H Lymph # [place] # 1.0 H Baso # Seg Neutrophils % Seg Neuts % (Manual) Lymphocytes % (Manual) Monocytes % (Manual) Eosinophils % (Manual) Basophils % (Manual) Nucleated RBC % Seg Neutrophils # Seg Neutrophils # Man Lymphocytes # (Manual) Monocytes # (Manual) Eosinophils # (Manual) Basophils # (Manual) PT INR Fibrinogen dRVVT Confirm Interp Factor V Activity POC ABG pH POC ABG pCO2 POC ABG pO2 ABG pO2 ABG HCO3 ABG Base Excess ABG Hemoglobin Oxyhemoglobin Sodium Potassium Chloride Carbon Dioxide BUN Creatinine Glucose POC Glucose Lactic Acid Calcium Phosphorus Magnesium Direct Bilirubin AST ALT Alkaline Phosphatase Lactate Dehydrogenase 196 H Troponin T C-Reactive Protein Total Protein 6.1 L Albumin Prealbumin Triglycerides Cholesterol LDL Cholesterol Direct HDL Cholesterol Urine pH Urine WBC (Auto) Urine Creatinine Urine Total Protein Fluid Total Protein < 3.0 L Vancomycin Trough Rheumatoid Factor Complement C4 Miscellaneous Test Crossmatch 11/11/16 11/11/16 11/12/16 06:59 09:50 04:00 WBC RBC Hgb Hct MCV MCH MCHC RDW Plt Count Lymph % (Auto) [place] % (Auto) Lymph # [place] # Baso # Seg Neutrophils % Seg Neuts % (Manual) Lymphocytes % (Manual) Monocytes % (Manual) Eosinophils % (Manual) Basophils % (Manual) Nucleated RBC % Seg Neutrophils # Seg Neutrophils # Man Lymphocytes # (Manual) Monocytes # (Manual) Eosinophils # (Manual) Basophils # (Manual) PT INR 1.18 H Fibrinogen dRVVT Confirm Interp Factor V Activity POC ABG pH POC ABG pCO2 POC ABG pO2 ABG pO2 ABG HCO3 ABG Base Excess ABG Hemoglobin Oxyhemoglobin Sodium 136 L 133 L Potassium Chloride 96.1 L 94.8 L Carbon Dioxide 21 L BUN 37 H 42 H Creatinine 1.8 H 2.0 H Glucose POC Glucose Lactic Acid Calcium Phosphorus Magnesium Direct Bilirubin AST ALT Alkaline Phosphatase Lactate Dehydrogenase Troponin T C-Reactive Protein Total Protein Albumin Prealbumin Triglycerides Cholesterol LDL Cholesterol Direct HDL Cholesterol Urine pH Urine WBC (Auto) Urine Creatinine Urine Total Protein Fluid Total Protein Vancomycin Trough Rheumatoid Factor Complement C4 Miscellaneous Test Crossmatch 11/12/16 11/12/16 11/13/16 04:00 23:55 05:53 WBC RBC Hgb 8.9 L Hct 27.2 L MCV MCH MCHC RDW Plt Count Lymph % (Auto) [place] % (Auto) Lymph # [place] # Baso # Seg Neutrophils % Seg Neuts % (Manual) Lymphocytes % (Manual) Monocytes % (Manual) Eosinophils % (Manual) Basophils % (Manual) Nucleated RBC % Seg Neutrophils # Seg Neutrophils # Man Lymphocytes # (Manual) Monocytes # (Manual) Eosinophils # (Manual) Basophils # (Manual) PT INR Fibrinogen dRVVT Confirm Interp Factor V Activity POC ABG pH POC ABG pCO2 POC ABG pO2 ABG pO2 ABG HCO3 ABG Base Excess ABG Hemoglobin Oxyhemoglobin Sodium Potassium Chloride Carbon Dioxide BUN Creatinine Glucose POC Glucose 132 H 120 H Lactic Acid Calcium Phosphorus Magnesium Direct Bilirubin AST ALT Alkaline Phosphatase Lactate Dehydrogenase Troponin T C-Reactive Protein Total Protein Albumin Prealbumin Triglycerides Cholesterol LDL Cholesterol Direct HDL Cholesterol Urine pH Urine WBC (Auto) Urine Creatinine Urine Total Protein Fluid Total Protein Vancomycin Trough Rheumatoid Factor Complement C4 Miscellaneous Test Crossmatch 11/13/16 11/13/16 11/13/16 11:43 17:09 23:41 WBC RBC Hgb Hct MCV MCH MCHC RDW Plt Count Lymph % (Auto) [place] % (Auto) Lymph # [place] # Baso # Seg Neutrophils % Seg Neuts % (Manual) Lymphocytes % (Manual) Monocytes % (Manual) Eosinophils % (Manual) Basophils % (Manual) Nucleated RBC % Seg Neutrophils # Seg Neutrophils # Man Lymphocytes # (Manual) Monocytes # (Manual) Eosinophils # (Manual) Basophils # (Manual) PT INR Fibrinogen dRVVT Confirm Interp Factor V Activity POC ABG pH POC ABG pCO2 POC ABG pO2 ABG pO2 ABG HCO3 ABG Base Excess ABG Hemoglobin Oxyhemoglobin Sodium Potassium Chloride Carbon Dioxide BUN Creatinine Glucose POC Glucose 114 H 113 H 108 H Lactic Acid Calcium Phosphorus Magnesium Direct Bilirubin AST ALT Alkaline Phosphatase Lactate Dehydrogenase Troponin T C-Reactive Protein Total Protein Albumin Prealbumin Triglycerides Cholesterol LDL Cholesterol Direct HDL Cholesterol Urine pH Urine WBC (Auto) Urine Creatinine Urine Total Protein Fluid Total Protein Vancomycin Trough Rheumatoid Factor Complement C4 Miscellaneous Test Crossmatch 11/13/16 11/15/16 11/15/16 Unknown 00:37 03:30 WBC 11.2 H RBC 2.72 L Hgb 7.6 L Hct 23.4 L MCV MCH MCHC RDW 16.5 H Plt Count Lymph % (Auto) [place] % (Auto) Lymph # [place] # Baso # Seg Neutrophils % Seg Neuts % (Manual) Lymphocytes % (Manual) Monocytes % (Manual) Eosinophils % (Manual) Basophils % (Manual) Nucleated RBC % Seg Neutrophils # Seg Neutrophils # Man Lymphocytes # (Manual) Monocytes # (Manual) Eosinophils # (Manual) Basophils # (Manual) PT INR Fibrinogen dRVVT Confirm Interp Factor V Activity POC ABG pH POC ABG pCO2 POC ABG pO2 ABG pO2 ABG HCO3 ABG Base Excess ABG Hemoglobin Oxyhemoglobin Sodium 135 L Potassium Chloride 95.2 L Carbon Dioxide BUN 52 H Creatinine 2.2 H Glucose POC Glucose 108 H Lactic Acid Calcium Phosphorus Magnesium Direct Bilirubin AST ALT Alkaline Phosphatase Lactate Dehydrogenase Troponin T C-Reactive Protein Total Protein Albumin Prealbumin Triglycerides Cholesterol LDL Cholesterol Direct HDL Cholesterol Urine pH Urine WBC (Auto) Urine Creatinine Urine Total Protein Fluid Total Protein Vancomycin Trough Rheumatoid Factor Complement C4 Miscellaneous Test Crossmatch 11/15/16 11/15/16 11/15/16 03:30 05:04 11:50 WBC RBC Hgb Hct MCV MCH MCHC RDW Plt Count Lymph % (Auto) [place] % (Auto) Lymph # [place] # Baso # Seg Neutrophils % Seg Neuts % (Manual) Lymphocytes % (Manual) Monocytes % (Manual) Eosinophils % (Manual) Basophils % (Manual) Nucleated RBC % Seg Neutrophils # Seg Neutrophils # Man Lymphocytes # (Manual) Monocytes # (Manual) Eosinophils # (Manual) Basophils # (Manual) PT INR Fibrinogen dRVVT Confirm Interp Factor V Activity POC ABG pH POC ABG pCO2 POC ABG pO2 ABG pO2 ABG HCO3 ABG Base Excess ABG Hemoglobin Oxyhemoglobin Sodium Potassium 3.4 L Chloride Carbon Dioxide BUN 25 H Creatinine 1.5 H Glucose 103 H POC Glucose 121 H 144 H Lactic Acid Calcium Phosphorus Magnesium Direct Bilirubin AST ALT Alkaline Phosphatase Lactate Dehydrogenase Troponin T C-Reactive Protein Total Protein Albumin Prealbumin Triglycerides Cholesterol LDL Cholesterol Direct HDL Cholesterol Urine pH Urine WBC (Auto) Urine Creatinine Urine Total Protein Fluid Total Protein Vancomycin Trough Rheumatoid Factor Complement C4 Miscellaneous Test Crossmatch 11/15/16 11/15/16 11/16/16 21:28 23:20 11:44 WBC RBC Hgb Hct MCV MCH MCHC RDW Plt Count Lymph % (Auto) [place] % (Auto) Lymph # [place] # Baso # Seg Neutrophils % Seg Neuts % (Manual) Lymphocytes % (Manual) Monocytes % (Manual) Eosinophils % (Manual) Basophils % (Manual) Nucleated RBC % Seg Neutrophils # Seg Neutrophils # Man Lymphocytes # (Manual) Monocytes # (Manual) Eosinophils # (Manual) Basophils # (Manual) PT INR Fibrinogen dRVVT Confirm Interp Factor V Activity POC ABG pH 7.462 H POC ABG pCO2 POC ABG pO2 71 L ABG pO2 ABG HCO3 ABG Base Excess ABG Hemoglobin Oxyhemoglobin Sodium Potassium Chloride Carbon Dioxide BUN Creatinine Glucose POC Glucose 116 H 133 H Lactic Acid Calcium Phosphorus Magnesium Direct Bilirubin AST ALT Alkaline Phosphatase Lactate Dehydrogenase Troponin T C-Reactive Protein Total Protein Albumin Prealbumin Triglycerides Cholesterol LDL Cholesterol Direct HDL Cholesterol Urine pH Urine WBC (Auto) Urine Creatinine Urine Total Protein Fluid Total Protein Vancomycin Trough Rheumatoid Factor Complement C4 Miscellaneous Test Crossmatch 11/16/16 11/16/16 11/16/16 12:20 17:05 23:35 WBC 11.7 H RBC 2.73 L Hgb 7.6 L Hct 23.7 L MCV MCH MCHC RDW 16.6 H Plt Count Lymph % (Auto) [place] % (Auto) Lymph # [place] # Baso # Seg Neutrophils % Seg Neuts % (Manual) Lymphocytes % (Manual) Monocytes % (Manual) Eosinophils % (Manual) Basophils % (Manual) Nucleated RBC % Seg Neutrophils # Seg Neutrophils # Man Lymphocytes # (Manual) Monocytes # (Manual) Eosinophils # (Manual) Basophils # (Manual) PT INR Fibrinogen dRVVT Confirm Interp Factor V Activity POC ABG pH POC ABG pCO2 POC ABG pO2 ABG pO2 ABG HCO3 ABG Base Excess ABG Hemoglobin Oxyhemoglobin Sodium Potassium Chloride Carbon Dioxide BUN Creatinine Glucose POC Glucose 154 H 125 H Lactic Acid Calcium Phosphorus Magnesium Direct Bilirubin AST ALT Alkaline Phosphatase Lactate Dehydrogenase Troponin T C-Reactive Protein Total Protein Albumin Prealbumin Triglycerides Cholesterol LDL Cholesterol Direct HDL Cholesterol Urine pH Urine WBC (Auto) Urine Creatinine Urine Total Protein Fluid Total Protein Vancomycin Trough Rheumatoid Factor Complement C4 Miscellaneous Test Crossmatch 11/17/16 11/17/16 11/17/16 03:20 03:20 03:20 WBC RBC 2.55 L Hgb 7.3 L Hct 21.9 L MCV MCH MCHC RDW 16.6 H Plt Count Lymph % (Auto) [place] % (Auto) 11.5 H Lymph # [place] # 1.1 H Baso # Seg Neutrophils % Seg Neuts % (Manual) Lymphocytes % (Manual) Monocytes % (Manual) Eosinophils % (Manual) Basophils % (Manual) Nucleated RBC % Seg Neutrophils # Seg Neutrophils # Man Lymphocytes # (Manual) Monocytes # (Manual) Eosinophils # (Manual) Basophils # (Manual) PT 16.8 H INR 1.37 H Fibrinogen dRVVT Confirm Interp Factor V Activity POC ABG pH POC ABG pCO2 POC ABG pO2 ABG pO2 ABG HCO3 ABG Base Excess ABG Hemoglobin Oxyhemoglobin Sodium Potassium 3.5 L Chloride Carbon Dioxide BUN 21 H Creatinine Glucose POC Glucose Lactic Acid Calcium 7.9 L Phosphorus Magnesium Direct Bilirubin AST ALT Alkaline Phosphatase Lactate Dehydrogenase Troponin T C-Reactive Protein Total Protein Albumin Prealbumin Triglycerides Cholesterol LDL Cholesterol Direct HDL Cholesterol Urine pH Urine WBC (Auto) Urine Creatinine Urine Total Protein Fluid Total Protein Vancomycin Trough Rheumatoid Factor Complement C4 Miscellaneous Test Crossmatch 11/17/16 11/17/16 11/17/16 06:34 11:21 21:22 WBC RBC Hgb Hct MCV MCH MCHC RDW Plt Count Lymph % (Auto) [place] % (Auto) Lymph # [place] # Baso # Seg Neutrophils % Seg Neuts % (Manual) Lymphocytes % (Manual) Monocytes % (Manual) Eosinophils % (Manual) Basophils % (Manual) Nucleated RBC % Seg Neutrophils # Seg Neutrophils # Man Lymphocytes # (Manual) Monocytes # (Manual) Eosinophils # (Manual) Basophils # (Manual) PT INR Fibrinogen dRVVT Confirm Interp Factor V Activity POC ABG pH 7.467 H POC ABG pCO2 POC ABG pO2 73 L ABG pO2 ABG HCO3 ABG Base Excess ABG Hemoglobin Oxyhemoglobin Sodium Potassium Chloride Carbon Dioxide BUN Creatinine Glucose POC Glucose 121 H 119 H Lactic Acid Calcium Phosphorus Magnesium Direct Bilirubin AST ALT Alkaline Phosphatase Lactate Dehydrogenase Troponin T C-Reactive Protein Total Protein Albumin Prealbumin Triglycerides Cholesterol LDL Cholesterol Direct HDL Cholesterol Urine pH Urine WBC (Auto) Urine Creatinine Urine Total Protein Fluid Total Protein Vancomycin Trough Rheumatoid Factor Complement C4 Miscellaneous Test Crossmatch 11/18/16 11/18/16 11/19/16 12:16 17:19 00:00 WBC RBC Hgb Hct MCV MCH MCHC RDW Plt Count Lymph % (Auto) [place] % (Auto) Lymph # [place] # Baso # Seg Neutrophils % Seg Neuts % (Manual) Lymphocytes % (Manual) Monocytes % (Manual) Eosinophils % (Manual) Basophils % (Manual) Nucleated RBC % Seg Neutrophils # Seg Neutrophils # Man Lymphocytes # (Manual) Monocytes # (Manual) Eosinophils # (Manual) Basophils # (Manual) PT INR Fibrinogen dRVVT Confirm Interp Factor V Activity POC ABG pH POC ABG pCO2 POC ABG pO2 ABG pO2 ABG HCO3 ABG Base Excess ABG Hemoglobin Oxyhemoglobin Sodium Potassium Chloride Carbon Dioxide BUN Creatinine Glucose POC Glucose 124 H 162 H 139 H Lactic Acid Calcium Phosphorus Magnesium Direct Bilirubin AST ALT Alkaline Phosphatase Lactate Dehydrogenase Troponin T C-Reactive Protein Total Protein Albumin Prealbumin Triglycerides Cholesterol LDL Cholesterol Direct HDL Cholesterol Urine pH Urine WBC (Auto) Urine Creatinine Urine Total Protein Fluid Total Protein Vancomycin Trough Rheumatoid Factor Complement C4 Miscellaneous Test Crossmatch 11/19/16 11/19/16 11/20/16 05:00 12:43 00:40 WBC RBC Hgb Hct MCV MCH MCHC RDW Plt Count Lymph % (Auto) [place] % (Auto) Lymph # [place] # Baso # Seg Neutrophils % Seg Neuts % (Manual) Lymphocytes % (Manual) Monocytes % (Manual) Eosinophils % (Manual) Basophils % (Manual) Nucleated RBC % Seg Neutrophils # Seg Neutrophils # Man Lymphocytes # (Manual) Monocytes # (Manual) Eosinophils # (Manual) Basophils # (Manual) PT INR Fibrinogen dRVVT Confirm Interp Factor V Activity POC ABG pH POC ABG pCO2 POC ABG pO2 ABG pO2 ABG HCO3 ABG Base Excess ABG Hemoglobin Oxyhemoglobin Sodium Potassium Chloride Carbon Dioxide BUN Creatinine Glucose POC Glucose 110 H 125 H 136 H Lactic Acid Calcium Phosphorus Magnesium Direct Bilirubin AST ALT Alkaline Phosphatase Lactate Dehydrogenase Troponin T C-Reactive Protein Total Protein Albumin Prealbumin Triglycerides Cholesterol LDL Cholesterol Direct HDL Cholesterol Urine pH Urine WBC (Auto) Urine Creatinine Urine Total Protein Fluid Total Protein Vancomycin Trough Rheumatoid Factor Complement C4 Miscellaneous Test Crossmatch 11/20/16 11/20/16 11/20/16 05:00 05:00 05:51 WBC 13.1 H RBC 2.74 L Hgb 7.7 L Hct 23.6 L MCV MCH MCHC RDW 16.9 H Plt Count Lymph % (Auto) [place] % (Auto) 10.8 H Lymph # [place] # 1.4 H Baso # Seg Neutrophils % Seg Neuts % (Manual) Lymphocytes % (Manual) Monocytes % (Manual) Eosinophils % (Manual) Basophils % (Manual) Nucleated RBC % Seg Neutrophils # 7.9 H Seg Neutrophils # Man Lymphocytes # (Manual) Monocytes # (Manual) Eosinophils # (Manual) Basophils # (Manual) PT INR Fibrinogen dRVVT Confirm Interp Factor V Activity POC ABG pH POC ABG pCO2 POC ABG pO2 ABG pO2 ABG HCO3 ABG Base Excess ABG Hemoglobin Oxyhemoglobin Sodium Potassium Chloride Carbon Dioxide BUN 31 H Creatinine 1.8 H Glucose 129 H POC Glucose 133 H Lactic Acid Calcium Phosphorus Magnesium Direct Bilirubin AST ALT Alkaline Phosphatase Lactate Dehydrogenase Troponin T C-Reactive Protein Total Protein Albumin Prealbumin Triglycerides Cholesterol LDL Cholesterol Direct HDL Cholesterol Urine pH Urine WBC (Auto) Urine Creatinine Urine Total Protein Fluid Total Protein Vancomycin Trough Rheumatoid Factor Complement C4 Miscellaneous Test Crossmatch 11/20/16 11/20/16 11/21/16 12:40 18:10 01:20 WBC RBC Hgb Hct MCV MCH MCHC RDW Plt Count Lymph % (Auto) [place] % (Auto) Lymph # [place] # Baso # Seg Neutrophils % Seg Neuts % (Manual) Lymphocytes % (Manual) Monocytes % (Manual) Eosinophils % (Manual) Basophils % (Manual) Nucleated RBC % Seg Neutrophils # Seg Neutrophils # Man Lymphocytes # (Manual) Monocytes # (Manual) Eosinophils # (Manual) Basophils # (Manual) PT INR Fibrinogen dRVVT Confirm Interp Factor V Activity POC ABG pH POC ABG pCO2 POC ABG pO2 ABG pO2 ABG HCO3 ABG Base Excess ABG Hemoglobin Oxyhemoglobin Sodium Potassium Chloride Carbon Dioxide BUN Creatinine Glucose POC Glucose 134 H 138 H 136 H Lactic Acid Calcium Phosphorus Magnesium Direct Bilirubin AST ALT Alkaline Phosphatase Lactate Dehydrogenase Troponin T C-Reactive Protein Total Protein Albumin Prealbumin Triglycerides Cholesterol LDL Cholesterol Direct HDL Cholesterol Urine pH Urine WBC (Auto) Urine Creatinine Urine Total Protein Fluid Total Protein Vancomycin Trough Rheumatoid Factor Complement C4 Miscellaneous Test Crossmatch 11/21/16 11/21/16 11/21/16 07:04 07:45 07:45 WBC 22.0 H RBC 2.91 L Hgb 8.2 L Hct 25.4 L MCV MCH MCHC RDW 17.1 H Plt Count Lymph % (Auto) [place] % (Auto) Lymph # [place] # Baso # Seg Neutrophils % Seg Neuts % (Manual) Lymphocytes % (Manual) 8.0 L Monocytes % (Manual) Eosinophils % (Manual) Basophils % (Manual) Nucleated RBC % Seg Neutrophils # Seg Neutrophils # Man 14.7 H Lymphocytes # (Manual) Monocytes # (Manual) 1.1 H Eosinophils # (Manual) Basophils # (Manual) PT INR Fibrinogen dRVVT Confirm Interp Factor V Activity POC ABG pH POC ABG pCO2 POC ABG pO2 ABG pO2 ABG HCO3 ABG Base Excess ABG Hemoglobin Oxyhemoglobin Sodium Potassium Chloride Carbon Dioxide BUN 42 H Creatinine 2.0 H Glucose POC Glucose 108 H Lactic Acid Calcium Phosphorus Magnesium Direct Bilirubin AST ALT Alkaline Phosphatase Lactate Dehydrogenase Troponin T C-Reactive Protein Total Protein Albumin Prealbumin Triglycerides Cholesterol LDL Cholesterol Direct HDL Cholesterol Urine pH Urine WBC (Auto) Urine Creatinine Urine Total Protein Fluid Total Protein Vancomycin Trough Rheumatoid Factor Complement C4 Miscellaneous Test Crossmatch 11/21/16 11/21/16 11/21/16 08:38 10:09 11:20 WBC RBC Hgb Hct MCV MCH MCHC RDW Plt Count Lymph % (Auto) [place] % (Auto) Lymph # [place] # Baso # Seg Neutrophils % Seg Neuts % (Manual) Lymphocytes % (Manual) Monocytes % (Manual) Eosinophils % (Manual) Basophils % (Manual) Nucleated RBC % Seg Neutrophils # Seg Neutrophils # Man Lymphocytes # (Manual) Monocytes # (Manual) Eosinophils # (Manual) Basophils # (Manual) PT INR Fibrinogen dRVVT Confirm Interp Factor V Activity POC ABG pH 7.346 L POC ABG pCO2 34.4 L POC ABG pO2 314 H ABG pO2 ABG HCO3 ABG Base Excess ABG Hemoglobin Oxyhemoglobin Sodium Potassium Chloride Carbon Dioxide BUN Creatinine Glucose POC Glucose 195 H 153 H Lactic Acid Calcium Phosphorus Magnesium Direct Bilirubin AST ALT Alkaline Phosphatase Lactate Dehydrogenase Troponin T C-Reactive Protein Total Protein Albumin Prealbumin Triglycerides Cholesterol LDL Cholesterol Direct HDL Cholesterol Urine pH Urine WBC (Auto) Urine Creatinine Urine Total Protein Fluid Total Protein Vancomycin Trough Rheumatoid Factor Complement C4 Miscellaneous Test Crossmatch 11/21/16 11/22/16 11/22/16 23:37 04:48 05:00 WBC 29.7 H RBC 2.73 L Hgb 7.5 L Hct 24.2 L MCV MCH 27 L MCHC RDW 17.4 H Plt Count Lymph % (Auto) [place] % (Auto) Lymph # [place] # Baso # Seg Neutrophils % Seg Neuts % (Manual) Lymphocytes % (Manual) 7.0 L Monocytes % (Manual) Eosinophils % (Manual) Basophils % (Manual) Nucleated RBC % Seg Neutrophils # Seg Neutrophils # Man 15.4 H Lymphocytes # (Manual) Monocytes # (Manual) Eosinophils # (Manual) Basophils # (Manual) PT INR Fibrinogen dRVVT Confirm Interp Factor V Activity POC ABG pH POC ABG pCO2 24.6 L POC ABG pO2 189 H ABG pO2 ABG HCO3 ABG Base Excess ABG Hemoglobin Oxyhemoglobin Sodium Potassium Chloride Carbon Dioxide BUN Creatinine Glucose POC Glucose 65 L Lactic Acid Calcium Phosphorus Magnesium Direct Bilirubin AST ALT Alkaline Phosphatase Lactate Dehydrogenase Troponin T C-Reactive Protein Total Protein Albumin Prealbumin Triglycerides Cholesterol LDL Cholesterol Direct HDL Cholesterol Urine pH Urine WBC (Auto) Urine Creatinine Urine Total Protein Fluid Total Protein Vancomycin Trough Rheumatoid Factor Complement C4 Miscellaneous Test Crossmatch 11/22/16 11/23/16 11/23/16 05:00 03:44 04:06 WBC RBC 2.52 L Hgb 7.2 L Hct 21.5 L MCV MCH MCHC RDW 17.1 H Plt Count Lymph % (Auto) [place] % (Auto) 12.4 H Lymph # [place] # 1.4 H Baso # Seg Neutrophils % Seg Neuts % (Manual) Lymphocytes % (Manual) Monocytes % (Manual) Eosinophils % (Manual) Basophils % (Manual) Nucleated RBC % Seg Neutrophils # Seg Neutrophils # Man Lymphocytes # (Manual) Monocytes # (Manual) Eosinophils # (Manual) Basophils # (Manual) PT INR Fibrinogen dRVVT Confirm Interp Factor V Activity POC ABG pH 7.493 H POC ABG pCO2 29.5 L POC ABG pO2 49 L ABG pO2 ABG HCO3 ABG Base Excess ABG Hemoglobin Oxyhemoglobin Sodium 134 L Potassium Chloride 95.9 L Carbon Dioxide 14 L D BUN 51 H Creatinine 2.6 H Glucose POC Glucose Lactic Acid Calcium Phosphorus Magnesium Direct Bilirubin AST ALT Alkaline Phosphatase Lactate Dehydrogenase Troponin T C-Reactive Protein Total Protein Albumin Prealbumin Triglycerides Cholesterol LDL Cholesterol Direct HDL Cholesterol Urine pH Urine WBC (Auto) Urine Creatinine Urine Total Protein Fluid Total Protein Vancomycin Trough Rheumatoid Factor Complement C4 Miscellaneous Test Crossmatch 11/23/16 11/23/16 11/24/16 04:06 11:29 06:39 WBC RBC Hgb Hct MCV MCH MCHC RDW Plt Count Lymph % (Auto) [place] % (Auto) Lymph # [place] # Baso # Seg Neutrophils % Seg Neuts % (Manual) Lymphocytes % (Manual) Monocytes % (Manual) Eosinophils % (Manual) Basophils % (Manual) Nucleated RBC % Seg Neutrophils # Seg Neutrophils # Man Lymphocytes # (Manual) Monocytes # (Manual) Eosinophils # (Manual) Basophils # (Manual) PT INR Fibrinogen dRVVT Confirm Interp Factor V Activity POC ABG pH POC ABG pCO2 POC ABG pO2 ABG pO2 ABG HCO3 ABG Base Excess ABG Hemoglobin Oxyhemoglobin Sodium 136 L Potassium Chloride 95.2 L Carbon Dioxide BUN 60 H Creatinine 2.9 H Glucose POC Glucose 69 L 305 H Lactic Acid Calcium Phosphorus Magnesium 1.60 L Direct Bilirubin AST ALT Alkaline Phosphatase Lactate Dehydrogenase Troponin T C-Reactive Protein Total Protein Albumin Prealbumin Triglycerides Cholesterol LDL Cholesterol Direct HDL Cholesterol Urine pH Urine WBC (Auto) Urine Creatinine Urine Total Protein Fluid Total Protein Vancomycin Trough Rheumatoid Factor Complement C4 Miscellaneous Test Crossmatch 11/24/16 11/24/16 11/24/16 06:43 08:08 08:08 WBC 11.2 H RBC 2.47 L Hgb 6.8 L Hct 20.6 L MCV MCH MCHC RDW 17.0 H Plt Count Lymph % (Auto) [place] % (Auto) 10.3 H Lymph # [place] # 1.2 H Baso # Seg Neutrophils % Seg Neuts % (Manual) Lymphocytes % (Manual) Monocytes % (Manual) Eosinophils % (Manual) Basophils % (Manual) Nucleated RBC % Seg Neutrophils # Seg Neutrophils # Man Lymphocytes # (Manual) Monocytes # (Manual) Eosinophils # (Manual) Basophils # (Manual) PT INR Fibrinogen dRVVT Confirm Interp Factor V Activity POC ABG pH POC ABG pCO2 POC ABG pO2 ABG pO2 ABG HCO3 ABG Base Excess ABG Hemoglobin Oxyhemoglobin Sodium 135 L Potassium Chloride 96.3 L Carbon Dioxide BUN 61 H Creatinine 3.1 H Glucose POC Glucose 62 L Lactic Acid Calcium 8.2 L Phosphorus Magnesium Direct Bilirubin AST ALT Alkaline Phosphatase Lactate Dehydrogenase Troponin T C-Reactive Protein Total Protein Albumin Prealbumin Triglycerides Cholesterol LDL Cholesterol Direct HDL Cholesterol Urine pH Urine WBC (Auto) Urine Creatinine Urine Total Protein Fluid Total Protein Vancomycin Trough Rheumatoid Factor Complement C4 Miscellaneous Test Crossmatch 11/24/16 11/24/16 11/24/16 08:34 11:20 12:41 WBC RBC Hgb Hct MCV MCH MCHC RDW Plt Count Lymph % (Auto) [place] % (Auto) Lymph # [place] # Baso # Seg Neutrophils % Seg Neuts % (Manual) Lymphocytes % (Manual) Monocytes % (Manual) Eosinophils % (Manual) Basophils % (Manual) Nucleated RBC % Seg Neutrophils # Seg Neutrophils # Man Lymphocytes # (Manual) Monocytes # (Manual) Eosinophils # (Manual) Basophils # (Manual) PT INR Fibrinogen dRVVT Confirm Interp Factor V Activity POC ABG pH POC ABG pCO2 POC ABG pO2 ABG pO2 ABG HCO3 ABG Base Excess ABG Hemoglobin Oxyhemoglobin Sodium Potassium Chloride Carbon Dioxide BUN Creatinine Glucose POC Glucose 108 H Lactic Acid Calcium Phosphorus Magnesium 1.60 L Direct Bilirubin AST ALT Alkaline Phosphatase Lactate Dehydrogenase Troponin T C-Reactive Protein Total Protein Albumin Prealbumin Triglycerides Cholesterol LDL Cholesterol Direct HDL Cholesterol Urine pH Urine WBC (Auto) Urine Creatinine Urine Total Protein Fluid Total Protein Vancomycin Trough Rheumatoid Factor Complement C4 Miscellaneous Test Crossmatch See Detail 11/25/16 11/25/16 11/25/16 00:03 04:42 04:42 WBC RBC 3.03 L Hgb 8.6 L Hct 25.3 L MCV MCH MCHC RDW 16.2 H Plt Count Lymph % (Auto) [place] % (Auto) 8.1 H Lymph # [place] # Baso # Seg Neutrophils % 71.3 H Seg Neuts % (Manual) Lymphocytes % (Manual) Monocytes % (Manual) Eosinophils % (Manual) Basophils % (Manual) Nucleated RBC % Seg Neutrophils # Seg Neutrophils # Man Lymphocytes # (Manual) Monocytes # (Manual) Eosinophils # (Manual) Basophils # (Manual) PT INR Fibrinogen dRVVT Confirm Interp Factor V Activity POC ABG pH POC ABG pCO2 POC ABG pO2 ABG pO2 ABG HCO3 ABG Base Excess ABG Hemoglobin Oxyhemoglobin Sodium Potassium Chloride Carbon Dioxide BUN 61 H Creatinine 3.0 H Glucose 102 H POC Glucose 113 H Lactic Acid Calcium 8.2 L Phosphorus Magnesium Direct Bilirubin AST ALT Alkaline Phosphatase 142 H Lactate Dehydrogenase Troponin T C-Reactive Protein Total Protein 5.7 L Albumin 1.5 L Prealbumin Triglycerides Cholesterol LDL Cholesterol Direct HDL Cholesterol Urine pH Urine WBC (Auto) Urine Creatinine Urine Total Protein Fluid Total Protein Vancomycin Trough Rheumatoid Factor Complement C4 Miscellaneous Test Crossmatch 11/25/16 11/25/16 11/25/16 05:12 11:31 14:12 WBC RBC Hgb Hct MCV MCH MCHC RDW Plt Count Lymph % (Auto) [place] % (Auto) Lymph # [place] # Baso # Seg Neutrophils % Seg Neuts % (Manual) Lymphocytes % (Manual) Monocytes % (Manual) Eosinophils % (Manual) Basophils % (Manual) Nucleated RBC % Seg Neutrophils # Seg Neutrophils # Man Lymphocytes # (Manual) Monocytes # (Manual) Eosinophils # (Manual) Basophils # (Manual) PT INR Fibrinogen dRVVT Confirm Interp Factor V Activity POC ABG pH 7.487 H POC ABG pCO2 POC ABG pO2 153 H ABG pO2 ABG HCO3 ABG Base Excess ABG Hemoglobin Oxyhemoglobin Sodium Potassium Chloride Carbon Dioxide BUN Creatinine Glucose POC Glucose 131 H 140 H Lactic Acid Calcium Phosphorus Magnesium Direct Bilirubin AST ALT Alkaline Phosphatase Lactate Dehydrogenase Troponin T C-Reactive Protein Total Protein Albumin Prealbumin Triglycerides Cholesterol LDL Cholesterol Direct HDL Cholesterol Urine pH Urine WBC (Auto) Urine Creatinine Urine Total Protein Fluid Total Protein Vancomycin Trough Rheumatoid Factor Complement C4 Miscellaneous Test Crossmatch 11/25/16 11/26/16 11/26/16 17:23 00:09 05:13 WBC RBC 2.94 L Hgb 8.4 L Hct 24.6 L MCV MCH MCHC RDW 16.4 H Plt Count Lymph % (Auto) [place] % (Auto) 12.3 H Lymph # [place] # 1.1 H Baso # Seg Neutrophils % Seg Neuts % (Manual) Lymphocytes % (Manual) Monocytes % (Manual) Eosinophils % (Manual) Basophils % (Manual) Nucleated RBC % Seg Neutrophils # Seg Neutrophils # Man Lymphocytes # (Manual) Monocytes # (Manual) Eosinophils # (Manual) Basophils # (Manual) PT INR Fibrinogen dRVVT Confirm Interp Factor V Activity POC ABG pH POC ABG pCO2 POC ABG pO2 ABG pO2 ABG HCO3 ABG Base Excess ABG Hemoglobin Oxyhemoglobin Sodium Potassium Chloride Carbon Dioxide BUN Creatinine Glucose POC Glucose 146 H 112 H Lactic Acid Calcium Phosphorus Magnesium Direct Bilirubin AST ALT Alkaline Phosphatase Lactate Dehydrogenase Troponin T C-Reactive Protein Total Protein Albumin Prealbumin Triglycerides Cholesterol LDL Cholesterol Direct HDL Cholesterol Urine pH Urine WBC (Auto) Urine Creatinine Urine Total Protein Fluid Total Protein Vancomycin Trough Rheumatoid Factor Complement C4 Miscellaneous Test Crossmatch 11/26/16 11/26/16 11/26/16 05:13 05:28 11:53 WBC RBC Hgb Hct MCV MCH MCHC RDW Plt Count Lymph % (Auto) [place] % (Auto) Lymph # [place] # Baso # Seg Neutrophils % Seg Neuts % (Manual) Lymphocytes % (Manual) Monocytes % (Manual) Eosinophils % (Manual) Basophils % (Manual) Nucleated RBC % Seg Neutrophils # Seg Neutrophils # Man Lymphocytes # (Manual) Monocytes # (Manual) Eosinophils # (Manual) Basophils # (Manual) PT INR Fibrinogen dRVVT Confirm Interp Factor V Activity POC ABG pH POC ABG pCO2 POC ABG pO2 ABG pO2 ABG HCO3 ABG Base Excess ABG Hemoglobin Oxyhemoglobin Sodium Potassium Chloride 97.8 L Carbon Dioxide BUN 37 H Creatinine 2.0 H Glucose 109 H POC Glucose 117 H 111 H Lactic Acid Calcium 7.9 L Phosphorus 1.80 L D Magnesium Direct Bilirubin AST ALT Alkaline Phosphatase Lactate Dehydrogenase Troponin T C-Reactive Protein Total Protein Albumin Prealbumin Triglycerides Cholesterol LDL Cholesterol Direct HDL Cholesterol Urine pH Urine WBC (Auto) Urine Creatinine Urine Total Protein Fluid Total Protein Vancomycin Trough Rheumatoid Factor Complement C4 Miscellaneous Test Crossmatch 11/26/16 11/27/16 11/27/16 17:14 04:50 06:02 WBC RBC Hgb Hct MCV MCH MCHC RDW Plt Count Lymph % (Auto) [place] % (Auto) Lymph # [place] # Baso # Seg Neutrophils % Seg Neuts % (Manual) Lymphocytes % (Manual) Monocytes % (Manual) Eosinophils % (Manual) Basophils % (Manual) Nucleated RBC % Seg Neutrophils # Seg Neutrophils # Man Lymphocytes # (Manual) Monocytes # (Manual) Eosinophils # (Manual) Basophils # (Manual) PT INR Fibrinogen dRVVT Confirm Interp Factor V Activity POC ABG pH POC ABG pCO2 POC ABG pO2 ABG pO2 75.2 L ABG HCO3 26.4 H ABG Base Excess ABG Hemoglobin 7.6 L Oxyhemoglobin 94.8 L Sodium Potassium Chloride Carbon Dioxide BUN 49 H Creatinine 2.3 H Glucose POC Glucose 115 H Lactic Acid Calcium Phosphorus 1.50 L Magnesium Direct Bilirubin AST ALT Alkaline Phosphatase Lactate Dehydrogenase Troponin T C-Reactive Protein Total Protein Albumin Prealbumin Triglycerides Cholesterol LDL Cholesterol Direct HDL Cholesterol Urine pH Urine WBC (Auto) Urine Creatinine Urine Total Protein Fluid Total Protein Vancomycin Trough Rheumatoid Factor Complement C4 Miscellaneous Test Crossmatch 11/27/16 11/27/16 11/27/16 06:02 11:25 17:25 WBC 11.6 H RBC 2.75 L Hgb 7.6 L Hct 23.4 L MCV MCH MCHC RDW 16.5 H Plt Count Lymph % (Auto) [place] % (Auto) Lymph # [place] # Baso # Seg Neutrophils % Seg Neuts % (Manual) Lymphocytes % (Manual) Monocytes % (Manual) Eosinophils % (Manual) Basophils % (Manual) Nucleated RBC % Seg Neutrophils # Seg Neutrophils # Man Lymphocytes # (Manual) Monocytes # (Manual) Eosinophils # (Manual) Basophils # (Manual) PT INR Fibrinogen dRVVT Confirm Interp Factor V Activity POC ABG pH POC ABG pCO2 POC ABG pO2 ABG pO2 ABG HCO3 ABG Base Excess ABG Hemoglobin Oxyhemoglobin Sodium Potassium Chloride Carbon Dioxide BUN Creatinine Glucose POC Glucose 114 H 126 H Lactic Acid Calcium Phosphorus Magnesium Direct Bilirubin AST ALT Alkaline Phosphatase Lactate Dehydrogenase Troponin T C-Reactive Protein Total Protein Albumin Prealbumin Triglycerides Cholesterol LDL Cholesterol Direct HDL Cholesterol Urine pH Urine WBC (Auto) Urine Creatinine Urine Total Protein Fluid Total Protein Vancomycin Trough Rheumatoid Factor Complement C4 Miscellaneous Test Crossmatch 11/28/16 11/28/16 11/28/16 04:45 05:33 05:44 WBC RBC Hgb Hct MCV MCH MCHC RDW Plt Count Lymph % (Auto) [place] % (Auto) Lymph # [place] # Baso # Seg Neutrophils % Seg Neuts % (Manual) Lymphocytes % (Manual) Monocytes % (Manual) Eosinophils % (Manual) Basophils % (Manual) Nucleated RBC % Seg Neutrophils # Seg Neutrophils # Man Lymphocytes # (Manual) Monocytes # (Manual) Eosinophils # (Manual) Basophils # (Manual) PT INR Fibrinogen dRVVT Confirm Interp Factor V Activity POC ABG pH POC ABG pCO2 POC ABG pO2 ABG pO2 99.3 H ABG HCO3 ABG Base Excess ABG Hemoglobin 8.3 L Oxyhemoglobin Sodium Potassium Chloride Carbon Dioxide BUN 63 H Creatinine 2.4 H Glucose 102 H POC Glucose 108 H Lactic Acid Calcium Phosphorus 1.80 L Magnesium Direct Bilirubin AST ALT Alkaline Phosphatase Lactate Dehydrogenase Troponin T C-Reactive Protein Total Protein Albumin Prealbumin Triglycerides Cholesterol LDL Cholesterol Direct HDL Cholesterol Urine pH Urine WBC (Auto) Urine Creatinine Urine Total Protein Fluid Total Protein Vancomycin Trough Rheumatoid Factor Complement C4 Miscellaneous Test Crossmatch 11/28/16 11/28/16 11/28/16 12:31 16:09 23:46 WBC RBC Hgb Hct MCV MCH MCHC RDW Plt Count Lymph % (Auto) [place] % (Auto) Lymph # [place] # Baso # Seg Neutrophils % Seg Neuts % (Manual) Lymphocytes % (Manual) Monocytes % (Manual) Eosinophils % (Manual) Basophils % (Manual) Nucleated RBC % Seg Neutrophils # Seg Neutrophils # Man Lymphocytes # (Manual) Monocytes # (Manual) Eosinophils # (Manual) Basophils # (Manual) PT INR Fibrinogen dRVVT Confirm Interp Factor V Activity POC ABG pH POC ABG pCO2 POC ABG pO2 ABG pO2 ABG HCO3 ABG Base Excess ABG Hemoglobin Oxyhemoglobin Sodium Potassium Chloride Carbon Dioxide BUN Creatinine Glucose POC Glucose 126 H 111 H 119 H Lactic Acid Calcium Phosphorus Magnesium Direct Bilirubin AST ALT Alkaline Phosphatase Lactate Dehydrogenase Troponin T C-Reactive Protein Total Protein Albumin Prealbumin Triglycerides Cholesterol LDL Cholesterol Direct HDL Cholesterol Urine pH Urine WBC (Auto) Urine Creatinine Urine Total Protein Fluid Total Protein Vancomycin Trough Rheumatoid Factor Complement C4 Miscellaneous Test Crossmatch 11/29/16 11/29/16 11/29/16 03:33 04:52 05:10 WBC RBC Hgb Hct MCV MCH MCHC RDW Plt Count Lymph % (Auto) [place] % (Auto) Lymph # [place] # Baso # Seg Neutrophils % Seg Neuts % (Manual) Lymphocytes % (Manual) Monocytes % (Manual) Eosinophils % (Manual) Basophils % (Manual) Nucleated RBC % Seg Neutrophils # Seg Neutrophils # Man Lymphocytes # (Manual) Monocytes # (Manual) Eosinophils # (Manual) Basophils # (Manual) PT INR Fibrinogen dRVVT Confirm Interp Factor V Activity POC ABG pH POC ABG pCO2 POC ABG pO2 ABG pO2 ABG HCO3 ABG Base Excess ABG Hemoglobin 7.0 L Oxyhemoglobin 94.9 L Sodium Potassium Chloride Carbon Dioxide BUN 73 H Creatinine 2.7 H Glucose POC Glucose 108 H Lactic Acid Calcium Phosphorus Magnesium Direct Bilirubin AST ALT Alkaline Phosphatase Lactate Dehydrogenase Troponin T C-Reactive Protein Total Protein Albumin Prealbumin Triglycerides Cholesterol LDL Cholesterol Direct HDL Cholesterol Urine pH Urine WBC (Auto) Urine Creatinine Urine Total Protein Fluid Total Protein Vancomycin Trough Rheumatoid Factor Complement C4 Miscellaneous Test Crossmatch 11/29/16 11/29/16 11/29/16 12:16 18:05 23:46 WBC RBC Hgb Hct MCV MCH MCHC RDW Plt Count Lymph % (Auto) [place] % (Auto) Lymph # [place] # Baso # Seg Neutrophils % Seg Neuts % (Manual) Lymphocytes % (Manual) Monocytes % (Manual) Eosinophils % (Manual) Basophils % (Manual) Nucleated RBC % Seg Neutrophils # Seg Neutrophils # Man Lymphocytes # (Manual) Monocytes # (Manual) Eosinophils # (Manual) Basophils # (Manual) PT INR Fibrinogen dRVVT Confirm Interp Factor V Activity POC ABG pH POC ABG pCO2 POC ABG pO2 ABG pO2 ABG HCO3 ABG Base Excess ABG Hemoglobin Oxyhemoglobin Sodium Potassium Chloride Carbon Dioxide BUN Creatinine Glucose POC Glucose 133 H 146 H 141 H Lactic Acid Calcium Phosphorus Magnesium Direct Bilirubin AST ALT Alkaline Phosphatase Lactate Dehydrogenase Troponin T C-Reactive Protein Total Protein Albumin Prealbumin Triglycerides Cholesterol LDL Cholesterol Direct HDL Cholesterol Urine pH Urine WBC (Auto) Urine Creatinine Urine Total Protein Fluid Total Protein Vancomycin Trough Rheumatoid Factor Complement C4 Miscellaneous Test Crossmatch 11/30/16 11/30/16 11/30/16 04:17 04:17 04:32 WBC 12.0 H RBC 2.80 L Hgb 7.8 L Hct 23.6 L MCV MCH MCHC RDW 16.6 H Plt Count Lymph % (Auto) [place] % (Auto) 11.3 H Lymph # [place] # 1.4 H Baso # Seg Neutrophils % Seg Neuts % (Manual) Lymphocytes % (Manual) Monocytes % (Manual) Eosinophils % (Manual) Basophils % (Manual) Nucleated RBC % Seg Neutrophils # 8.2 H Seg Neutrophils # Man Lymphocytes # (Manual) Monocytes # (Manual) Eosinophils # (Manual) Basophils # (Manual) PT INR Fibrinogen dRVVT Confirm Interp Factor V Activity POC ABG pH POC ABG pCO2 POC ABG pO2 ABG pO2 ABG HCO3 ABG Base Excess ABG Hemoglobin Oxyhemoglobin Sodium 169 H* D Potassium 5.1 H Chloride 121.5 H Carbon Dioxide BUN 34 H Creatinine 1.3 H D Glucose 133 H POC Glucose 131 H Lactic Acid Calcium 10.3 H Phosphorus Magnesium Direct Bilirubin AST ALT Alkaline Phosphatase Lactate Dehydrogenase Troponin T C-Reactive Protein Total Protein Albumin Prealbumin Triglycerides Cholesterol LDL Cholesterol Direct HDL Cholesterol Urine pH Urine WBC (Auto) Urine Creatinine Urine Total Protein Fluid Total Protein Vancomycin Trough Rheumatoid Factor Complement C4 Miscellaneous Test Crossmatch 11/30/16 11/30/16 11/30/16 05:45 11:10 17:26 WBC RBC Hgb Hct MCV MCH MCHC RDW Plt Count Lymph % (Auto) [place] % (Auto) Lymph # [place] # Baso # Seg Neutrophils % Seg Neuts % (Manual) Lymphocytes % (Manual) Monocytes % (Manual) Eosinophils % (Manual) Basophils % (Manual) Nucleated RBC % Seg Neutrophils # Seg Neutrophils # Man Lymphocytes # (Manual) Monocytes # (Manual) Eosinophils # (Manual) Basophils # (Manual) PT INR Fibrinogen dRVVT Confirm Interp Factor V Activity POC ABG pH POC ABG pCO2 POC ABG pO2 ABG pO2 ABG HCO3 ABG Base Excess ABG Hemoglobin Oxyhemoglobin Sodium Potassium Chloride Carbon Dioxide BUN 45 H Creatinine 1.6 H Glucose 131 H POC Glucose 146 H 134 H Lactic Acid Calcium Phosphorus Magnesium Direct Bilirubin AST ALT Alkaline Phosphatase Lactate Dehydrogenase Troponin T C-Reactive Protein Total Protein Albumin Prealbumin Triglycerides Cholesterol LDL Cholesterol Direct HDL Cholesterol Urine pH Urine WBC (Auto) Urine Creatinine Urine Total Protein Fluid Total Protein Vancomycin Trough Rheumatoid Factor Complement C4 Miscellaneous Test Crossmatch 11/30/16 12/01/16 12/01/16 23:35 00:06 03:35 WBC RBC Hgb Hct MCV MCH MCHC RDW Plt Count Lymph % (Auto) [place] % (Auto) Lymph # [place] # Baso # Seg Neutrophils % Seg Neuts % (Manual) Lymphocytes % (Manual) Monocytes % (Manual) Eosinophils % (Manual) Basophils % (Manual) Nucleated RBC % Seg Neutrophils # Seg Neutrophils # Man Lymphocytes # (Manual) Monocytes # (Manual) Eosinophils # (Manual) Basophils # (Manual) PT INR Fibrinogen dRVVT Confirm Interp Factor V Activity POC ABG pH POC ABG pCO2 POC ABG pO2 ABG pO2 ABG HCO3 ABG Base Excess ABG Hemoglobin 6.9 L Oxyhemoglobin Sodium Potassium Chloride Carbon Dioxide BUN 58 H Creatinine 1.8 H Glucose 146 H POC Glucose 151 H Lactic Acid Calcium Phosphorus Magnesium Direct Bilirubin AST ALT Alkaline Phosphatase Lactate Dehydrogenase Troponin T C-Reactive Protein Total Protein Albumin Prealbumin Triglycerides Cholesterol LDL Cholesterol Direct HDL Cholesterol Urine pH Urine WBC (Auto) Urine Creatinine Urine Total Protein Fluid Total Protein Vancomycin Trough Rheumatoid Factor Complement C4 Miscellaneous Test Crossmatch 12/01/16 12/01/16 12/01/16 03:35 05:47 11:52 WBC 12.3 H RBC 2.82 L Hgb 7.8 L Hct 23.7 L MCV MCH MCHC RDW 16.7 H Plt Count Lymph % (Auto) [place] % (Auto) 9.8 H Lymph # [place] # 1.2 H Baso # Seg Neutrophils % Seg Neuts % (Manual) Lymphocytes % (Manual) Monocytes % (Manual) Eosinophils % (Manual) Basophils % (Manual) Nucleated RBC % Seg Neutrophils # 8.4 H Seg Neutrophils # Man Lymphocytes # (Manual) Monocytes # (Manual) Eosinophils # (Manual) Basophils # (Manual) PT INR Fibrinogen dRVVT Confirm Interp Factor V Activity POC ABG pH POC ABG pCO2 POC ABG pO2 ABG pO2 ABG HCO3 ABG Base Excess ABG Hemoglobin Oxyhemoglobin Sodium Potassium Chloride Carbon Dioxide BUN Creatinine Glucose POC Glucose 152 H 152 H Lactic Acid Calcium Phosphorus Magnesium Direct Bilirubin AST ALT Alkaline Phosphatase Lactate Dehydrogenase Troponin T C-Reactive Protein Total Protein Albumin Prealbumin Triglycerides Cholesterol LDL Cholesterol Direct HDL Cholesterol Urine pH Urine WBC (Auto) Urine Creatinine Urine Total Protein Fluid Total Protein Vancomycin Trough Rheumatoid Factor Complement C4 Miscellaneous Test Crossmatch 12/01/16 12/01/16 12/02/16 17:40 23:41 05:00 WBC RBC Hgb Hct MCV MCH MCHC RDW Plt Count Lymph % (Auto) [place] % (Auto) Lymph # [place] # Baso # Seg Neutrophils % Seg Neuts % (Manual) Lymphocytes % (Manual) Monocytes % (Manual) Eosinophils % (Manual) Basophils % (Manual) Nucleated RBC % Seg Neutrophils # Seg Neutrophils # Man Lymphocytes # (Manual) Monocytes # (Manual) Eosinophils # (Manual) Basophils # (Manual) PT INR Fibrinogen dRVVT Confirm Interp Factor V Activity POC ABG pH POC ABG pCO2 POC ABG pO2 ABG pO2 ABG HCO3 ABG Base Excess ABG Hemoglobin Oxyhemoglobin Sodium Potassium Chloride Carbon Dioxide BUN 45 H Creatinine Glucose 115 H POC Glucose 140 H 144 H Lactic Acid Calcium Phosphorus Magnesium Direct Bilirubin AST ALT Alkaline Phosphatase Lactate Dehydrogenase Troponin T C-Reactive Protein Total Protein Albumin Prealbumin Triglycerides Cholesterol LDL Cholesterol Direct HDL Cholesterol Urine pH Urine WBC (Auto) Urine Creatinine Urine Total Protein Fluid Total Protein Vancomycin Trough Rheumatoid Factor Complement C4 Miscellaneous Test Crossmatch 12/02/16 12/02/16 12/02/16 05:31 11:20 17:38 WBC RBC Hgb Hct MCV MCH MCHC RDW Plt Count Lymph % (Auto) [place] % (Auto) Lymph # [place] # Baso # Seg Neutrophils % Seg Neuts % (Manual) Lymphocytes % (Manual) Monocytes % (Manual) Eosinophils % (Manual) Basophils % (Manual) Nucleated RBC % Seg Neutrophils # Seg Neutrophils # Man Lymphocytes # (Manual) Monocytes # (Manual) Eosinophils # (Manual) Basophils # (Manual) PT INR Fibrinogen dRVVT Confirm Interp Factor V Activity POC ABG pH POC ABG pCO2 POC ABG pO2 ABG pO2 ABG HCO3 ABG Base Excess ABG Hemoglobin Oxyhemoglobin Sodium Potassium Chloride Carbon Dioxide BUN Creatinine Glucose POC Glucose 136 H 177 H 139 H Lactic Acid Calcium Phosphorus Magnesium Direct Bilirubin AST ALT Alkaline Phosphatase Lactate Dehydrogenase Troponin T C-Reactive Protein Total Protein Albumin Prealbumin Triglycerides Cholesterol LDL Cholesterol Direct HDL Cholesterol Urine pH Urine WBC (Auto) Urine Creatinine Urine Total Protein Fluid Total Protein Vancomycin Trough Rheumatoid Factor Complement C4 Miscellaneous Test Crossmatch 12/02/16 12/03/16 12/03/16 23:43 04:00 04:00 WBC 20.4 H RBC 2.74 L Hgb 7.4 L Hct 23.6 L MCV MCH 27 L MCHC RDW 17.1 H Plt Count Lymph % (Auto) [place] % (Auto) Lymph # [place] # Baso # Seg Neutrophils % Seg Neuts % (Manual) 31.0 L Lymphocytes % (Manual) Monocytes % (Manual) Eosinophils % (Manual) Basophils % (Manual) Nucleated RBC % Seg Neutrophils # Seg Neutrophils # Man Lymphocytes # (Manual) Monocytes # (Manual) Eosinophils # (Manual) Basophils # (Manual) PT INR Fibrinogen dRVVT Confirm Interp Factor V Activity POC ABG pH POC ABG pCO2 POC ABG pO2 ABG pO2 ABG HCO3 ABG Base Excess ABG Hemoglobin Oxyhemoglobin Sodium Potassium Chloride Carbon Dioxide BUN 61 H Creatinine 1.6 H Glucose 119 H POC Glucose 158 H Lactic Acid Calcium Phosphorus Magnesium Direct Bilirubin AST ALT Alkaline Phosphatase Lactate Dehydrogenase Troponin T C-Reactive Protein Total Protein Albumin Prealbumin Triglycerides Cholesterol LDL Cholesterol Direct HDL Cholesterol Urine pH Urine WBC (Auto) Urine Creatinine Urine Total Protein Fluid Total Protein Vancomycin Trough Rheumatoid Factor Complement C4 Miscellaneous Test Crossmatch 12/03/16 12/03/16 12/03/16 05:02 12:11 18:16 WBC RBC Hgb Hct MCV MCH MCHC RDW Plt Count Lymph % (Auto) [place] % (Auto) Lymph # [place] # Baso # Seg Neutrophils % Seg Neuts % (Manual) Lymphocytes % (Manual) Monocytes % (Manual) Eosinophils % (Manual) Basophils % (Manual) Nucleated RBC % Seg Neutrophils # Seg Neutrophils # Man Lymphocytes # (Manual) Monocytes # (Manual) Eosinophils # (Manual) Basophils # (Manual) PT INR Fibrinogen dRVVT Confirm Interp Factor V Activity POC ABG pH POC ABG pCO2 POC ABG pO2 ABG pO2 ABG HCO3 ABG Base Excess ABG Hemoglobin Oxyhemoglobin Sodium Potassium Chloride Carbon Dioxide BUN Creatinine Glucose POC Glucose 146 H 157 H 124 H Lactic Acid Calcium Phosphorus Magnesium Direct Bilirubin AST ALT Alkaline Phosphatase Lactate Dehydrogenase Troponin T C-Reactive Protein Total Protein Albumin Prealbumin Triglycerides Cholesterol LDL Cholesterol Direct HDL Cholesterol Urine pH Urine WBC (Auto) Urine Creatinine Urine Total Protein Fluid Total Protein Vancomycin Trough Rheumatoid Factor Complement C4 Miscellaneous Test Crossmatch 12/03/16 12/04/16 12/04/16 23:41 04:00 04:45 WBC RBC Hgb Hct MCV MCH MCHC RDW Plt Count Lymph % (Auto) [place] % (Auto) Lymph # [place] # Baso # Seg Neutrophils % Seg Neuts % (Manual) Lymphocytes % (Manual) Monocytes % (Manual) Eosinophils % (Manual) Basophils % (Manual) Nucleated RBC % Seg Neutrophils # Seg Neutrophils # Man Lymphocytes # (Manual) Monocytes # (Manual) Eosinophils # (Manual) Basophils # (Manual) PT INR Fibrinogen dRVVT Confirm Interp Factor V Activity POC ABG pH POC ABG pCO2 POC ABG pO2 ABG pO2 ABG HCO3 ABG Base Excess ABG Hemoglobin Oxyhemoglobin Sodium Potassium Chloride Carbon Dioxide BUN 76 H Creatinine 1.6 H Glucose POC Glucose 130 H 136 H Lactic Acid Calcium Phosphorus Magnesium Direct Bilirubin AST ALT Alkaline Phosphatase 155 H Lactate Dehydrogenase Troponin T C-Reactive Protein Total Protein 5.5 L Albumin 1.5 L Prealbumin Triglycerides Cholesterol LDL Cholesterol Direct HDL Cholesterol Urine pH Urine WBC (Auto) Urine Creatinine Urine Total Protein Fluid Total Protein Vancomycin Trough Rheumatoid Factor Complement C4 Miscellaneous Test Crossmatch 12/04/16 12/04/16 12/05/16 12:08 17:23 00:10 WBC RBC Hgb Hct MCV MCH MCHC RDW Plt Count Lymph % (Auto) [place] % (Auto) Lymph # [place] # Baso # Seg Neutrophils % Seg Neuts % (Manual) Lymphocytes % (Manual) Monocytes % (Manual) Eosinophils % (Manual) Basophils % (Manual) Nucleated RBC % Seg Neutrophils # Seg Neutrophils # Man Lymphocytes # (Manual) Monocytes # (Manual) Eosinophils # (Manual) Basophils # (Manual) PT INR Fibrinogen dRVVT Confirm Interp Factor V Activity POC ABG pH POC ABG pCO2 POC ABG pO2 ABG pO2 ABG HCO3 ABG Base Excess ABG Hemoglobin Oxyhemoglobin Sodium Potassium Chloride Carbon Dioxide BUN Creatinine Glucose POC Glucose 114 H 129 H 124 H Lactic Acid Calcium Phosphorus Magnesium Direct Bilirubin AST ALT Alkaline Phosphatase Lactate Dehydrogenase Troponin T C-Reactive Protein Total Protein Albumin Prealbumin Triglycerides Cholesterol LDL Cholesterol Direct HDL Cholesterol Urine pH Urine WBC (Auto) Urine Creatinine Urine Total Protein Fluid Total Protein Vancomycin Trough Rheumatoid Factor Complement C4 Miscellaneous Test Crossmatch 12/05/16 12/05/16 12/05/16 05:00 05:00 05:18 WBC RBC Hgb Hct MCV MCH MCHC RDW Plt Count Lymph % (Auto) [place] % (Auto) Lymph # [place] # Baso # Seg Neutrophils % Seg Neuts % (Manual) Lymphocytes % (Manual) Monocytes % (Manual) Eosinophils % (Manual) Basophils % (Manual) Nucleated RBC % Seg Neutrophils # Seg Neutrophils # Man Lymphocytes # (Manual) Monocytes # (Manual) Eosinophils # (Manual) Basophils # (Manual) PT INR Fibrinogen dRVVT Confirm Interp Factor V Activity POC ABG pH POC ABG pCO2 POC ABG pO2 ABG pO2 ABG HCO3 ABG Base Excess ABG Hemoglobin Oxyhemoglobin Sodium Potassium Chloride Carbon Dioxide 21 L BUN 85 H Creatinine 1.9 H Glucose 131 H POC Glucose 154 H Lactic Acid Calcium Phosphorus Magnesium Direct Bilirubin AST ALT Alkaline Phosphatase Lactate Dehydrogenase Troponin T C-Reactive Protein 19.30 H Total Protein Albumin Prealbumin Triglycerides Cholesterol LDL Cholesterol Direct HDL Cholesterol Urine pH Urine WBC (Auto) Urine Creatinine Urine Total Protein Fluid Total Protein Vancomycin Trough Rheumatoid Factor Complement C4 Miscellaneous Test Crossmatch 12/05/16 12/05/16 12/05/16 11:43 17:46 23:25 WBC RBC Hgb Hct MCV MCH MCHC RDW Plt Count Lymph % (Auto) [place] % (Auto) Lymph # [place] # Baso # Seg Neutrophils % Seg Neuts % (Manual) Lymphocytes % (Manual) Monocytes % (Manual) Eosinophils % (Manual) Basophils % (Manual) Nucleated RBC % Seg Neutrophils # Seg Neutrophils # Man Lymphocytes # (Manual) Monocytes # (Manual) Eosinophils # (Manual) Basophils # (Manual) PT INR Fibrinogen dRVVT Confirm Interp Factor V Activity POC ABG pH POC ABG pCO2 POC ABG pO2 ABG pO2 ABG HCO3 ABG Base Excess ABG Hemoglobin Oxyhemoglobin Sodium Potassium Chloride Carbon Dioxide BUN Creatinine Glucose POC Glucose 117 H 113 H 111 H Lactic Acid Calcium Phosphorus Magnesium Direct Bilirubin AST ALT Alkaline Phosphatase Lactate Dehydrogenase Troponin T C-Reactive Protein Total Protein Albumin Prealbumin Triglycerides Cholesterol LDL Cholesterol Direct HDL Cholesterol Urine pH Urine WBC (Auto) Urine Creatinine Urine Total Protein Fluid Total Protein Vancomycin Trough Rheumatoid Factor Complement C4 Miscellaneous Test Crossmatch 12/05/16 12/06/16 12/06/16 Unknown 04:58 06:00 WBC RBC Hgb Hct MCV MCH MCHC RDW Plt Count Lymph % (Auto) [place] % (Auto) Lymph # [place] # Baso # Seg Neutrophils % Seg Neuts % (Manual) Lymphocytes % (Manual) Monocytes % (Manual) Eosinophils % (Manual) Basophils % (Manual) Nucleated RBC % Seg Neutrophils # Seg Neutrophils # Man Lymphocytes # (Manual) Monocytes # (Manual) Eosinophils # (Manual) Basophils # (Manual) PT INR Fibrinogen dRVVT Confirm Interp Factor V Activity POC ABG pH POC ABG pCO2 POC ABG pO2 ABG pO2 75.2 L ABG HCO3 ABG Base Excess -3.4 L ABG Hemoglobin 7.4 L Oxyhemoglobin 94.5 L Sodium Potassium Chloride Carbon Dioxide 20 L BUN 99 H Creatinine 2.1 H Glucose 126 H POC Glucose 145 H Lactic Acid Calcium Phosphorus 4.80 H Magnesium Direct Bilirubin AST ALT Alkaline Phosphatase Lactate Dehydrogenase Troponin T C-Reactive Protein Total Protein Albumin Prealbumin Triglycerides Cholesterol LDL Cholesterol Direct HDL Cholesterol Urine pH Urine WBC (Auto) Urine Creatinine Urine Total Protein Fluid Total Protein Vancomycin Trough Rheumatoid Factor Complement C4 Miscellaneous Test Crossmatch 12/06/16 12/06/16 12/06/16 06:46 11:54 17:55 WBC RBC Hgb 8.3 L Hct 26.4 L MCV MCH MCHC RDW Plt Count Lymph % (Auto) [place] % (Auto) Lymph # [place] # Baso # Seg Neutrophils % Seg Neuts % (Manual) Lymphocytes % (Manual) Monocytes % (Manual) Eosinophils % (Manual) Basophils % (Manual) Nucleated RBC % Seg Neutrophils # Seg Neutrophils # Man Lymphocytes # (Manual) Monocytes # (Manual) Eosinophils # (Manual) Basophils # (Manual) PT INR Fibrinogen dRVVT Confirm Interp Factor V Activity POC ABG pH POC ABG pCO2 POC ABG pO2 ABG pO2 ABG HCO3 ABG Base Excess ABG Hemoglobin Oxyhemoglobin Sodium Potassium Chloride Carbon Dioxide BUN Creatinine Glucose POC Glucose 126 H 157 H Lactic Acid Calcium Phosphorus Magnesium Direct Bilirubin AST ALT Alkaline Phosphatase Lactate Dehydrogenase Troponin T C-Reactive Protein Total Protein Albumin Prealbumin Triglycerides Cholesterol LDL Cholesterol Direct HDL Cholesterol Urine pH Urine WBC (Auto) Urine Creatinine Urine Total Protein Fluid Total Protein Vancomycin Trough Rheumatoid Factor Complement C4 Miscellaneous Test Crossmatch 12/06/16 12/07/16 12/07/16 23:59 05:34 06:30 WBC RBC Hgb Hct MCV MCH MCHC RDW Plt Count Lymph % (Auto) [place] % (Auto) Lymph # [place] # Baso # Seg Neutrophils % Seg Neuts % (Manual) Lymphocytes % (Manual) Monocytes % (Manual) Eosinophils % (Manual) Basophils % (Manual) Nucleated RBC % Seg Neutrophils # Seg Neutrophils # Man Lymphocytes # (Manual) Monocytes # (Manual) Eosinophils # (Manual) Basophils # (Manual) PT INR Fibrinogen dRVVT Confirm Interp Factor V Activity POC ABG pH POC ABG pCO2 POC ABG pO2 ABG pO2 ABG HCO3 ABG Base Excess ABG Hemoglobin Oxyhemoglobin Sodium Potassium Chloride Carbon Dioxide BUN 67 H Creatinine 1.4 H Glucose 126 H POC Glucose 129 H 129 H Lactic Acid Calcium Phosphorus Magnesium Direct Bilirubin AST ALT Alkaline Phosphatase Lactate Dehydrogenase Troponin T C-Reactive Protein Total Protein Albumin Prealbumin Triglycerides Cholesterol LDL Cholesterol Direct HDL Cholesterol Urine pH Urine WBC (Auto) Urine Creatinine Urine Total Protein Fluid Total Protein Vancomycin Trough Rheumatoid Factor Complement C4 Miscellaneous Test Crossmatch 12/07/16 12/07/16 12/07/16 06:30 08:00 09:45 WBC 18.8 H RBC 2.52 L Hgb 6.9 L 6.8 L Hct 21.2 L 21.1 L MCV MCH 27 L MCHC RDW 18.0 H Plt Count Lymph % (Auto) [place] % (Auto) 9.9 H Lymph # [place] # 1.9 H Baso # Seg Neutrophils % 71.8 H Seg Neuts % (Manual) Lymphocytes % (Manual) Monocytes % (Manual) Eosinophils % (Manual) Basophils % (Manual) Nucleated RBC % Seg Neutrophils # 13.5 H Seg Neutrophils # Man Lymphocytes # (Manual) Monocytes # (Manual) Eosinophils # (Manual) Basophils # (Manual) PT INR Fibrinogen dRVVT Confirm Interp Factor V Activity POC ABG pH POC ABG pCO2 POC ABG pO2 ABG pO2 ABG HCO3 ABG Base Excess ABG Hemoglobin Oxyhemoglobin Sodium Potassium Chloride Carbon Dioxide BUN Creatinine Glucose POC Glucose Lactic Acid Calcium Phosphorus Magnesium Direct Bilirubin AST ALT Alkaline Phosphatase Lactate Dehydrogenase Troponin T C-Reactive Protein Total Protein Albumin Prealbumin Triglycerides Cholesterol LDL Cholesterol Direct HDL Cholesterol Urine pH Urine WBC (Auto) Urine Creatinine Urine Total Protein Fluid Total Protein Vancomycin Trough Rheumatoid Factor Complement C4 Miscellaneous Test Crossmatch See Detail 12/07/16 12/07/16 12/07/16 11:44 18:19 23:59 WBC RBC Hgb Hct MCV MCH MCHC RDW Plt Count Lymph % (Auto) [place] % (Auto) Lymph # [place] # Baso # Seg Neutrophils % Seg Neuts % (Manual) Lymphocytes % (Manual) Monocytes % (Manual) Eosinophils % (Manual) Basophils % (Manual) Nucleated RBC % Seg Neutrophils # Seg Neutrophils # Man Lymphocytes # (Manual) Monocytes # (Manual) Eosinophils # (Manual) Basophils # (Manual) PT INR Fibrinogen dRVVT Confirm Interp Factor V Activity POC ABG pH POC ABG pCO2 POC ABG pO2 ABG pO2 ABG HCO3 ABG Base Excess ABG Hemoglobin Oxyhemoglobin Sodium Potassium Chloride Carbon Dioxide BUN Creatinine Glucose POC Glucose 137 H 138 H 133 H Lactic Acid Calcium Phosphorus Magnesium Direct Bilirubin AST ALT Alkaline Phosphatase Lactate Dehydrogenase Troponin T C-Reactive Protein Total Protein Albumin Prealbumin Triglycerides Cholesterol LDL Cholesterol Direct HDL Cholesterol Urine pH Urine WBC (Auto) Urine Creatinine Urine Total Protein Fluid Total Protein Vancomycin Trough Rheumatoid Factor Complement C4 Miscellaneous Test Crossmatch 12/08/16 12/08/16 12/08/16 05:25 05:30 05:30 WBC 23.8 H RBC 2.88 L Hgb 8.1 L Hct 24.3 L MCV MCH MCHC RDW 16.7 H Plt Count Lymph % (Auto) [place] % (Auto) Lymph # [place] # Baso # Seg Neutrophils % Seg Neuts % (Manual) 76.0 H Lymphocytes % (Manual) 9.0 L Monocytes % (Manual) 9.0 H Eosinophils % (Manual) Basophils % (Manual) Nucleated RBC % Seg Neutrophils # Seg Neutrophils # Man 18.1 H Lymphocytes # (Manual) Monocytes # (Manual) 2.1 H Eosinophils # (Manual) Basophils # (Manual) PT INR Fibrinogen dRVVT Confirm Interp Factor V Activity POC ABG pH POC ABG pCO2 POC ABG pO2 ABG pO2 ABG HCO3 ABG Base Excess ABG Hemoglobin Oxyhemoglobin Sodium Potassium Chloride Carbon Dioxide 21 L BUN 76 H Creatinine 1.6 H Glucose 133 H POC Glucose 177 H Lactic Acid Calcium Phosphorus Magnesium Direct Bilirubin AST ALT Alkaline Phosphatase Lactate Dehydrogenase Troponin T C-Reactive Protein Total Protein Albumin Prealbumin Triglycerides Cholesterol LDL Cholesterol Direct HDL Cholesterol Urine pH Urine WBC (Auto) Urine Creatinine Urine Total Protein Fluid Total Protein Vancomycin Trough Rheumatoid Factor Complement C4 Miscellaneous Test Crossmatch 12/08/16 12/08/16 12/09/16 11:45 18:00 00:00 WBC RBC Hgb Hct MCV MCH MCHC RDW Plt Count Lymph % (Auto) [place] % (Auto) Lymph # [place] # Baso # Seg Neutrophils % Seg Neuts % (Manual) Lymphocytes % (Manual) Monocytes % (Manual) Eosinophils % (Manual) Basophils % (Manual) Nucleated RBC % Seg Neutrophils # Seg Neutrophils # Man Lymphocytes # (Manual) Monocytes # (Manual) Eosinophils # (Manual) Basophils # (Manual) PT INR Fibrinogen dRVVT Confirm Interp Factor V Activity POC ABG pH POC ABG pCO2 POC ABG pO2 ABG pO2 ABG HCO3 ABG Base Excess ABG Hemoglobin Oxyhemoglobin Sodium Potassium Chloride Carbon Dioxide BUN Creatinine Glucose POC Glucose 163 H 123 H 137 H Lactic Acid Calcium Phosphorus Magnesium Direct Bilirubin AST ALT Alkaline Phosphatase Lactate Dehydrogenase Troponin T C-Reactive Protein Total Protein Albumin Prealbumin Triglycerides Cholesterol LDL Cholesterol Direct HDL Cholesterol Urine pH Urine WBC (Auto) Urine Creatinine Urine Total Protein Fluid Total Protein Vancomycin Trough Rheumatoid Factor Complement C4 Miscellaneous Test Crossmatch 12/09/16 12/09/16 12/09/16 05:34 06:00 06:00 WBC 15.5 H RBC 2.87 L Hgb 8.0 L Hct 24.2 L MCV MCH MCHC RDW 17.2 H Plt Count Lymph % (Auto) [place] % (Auto) 11.6 H Lymph # [place] # 1.8 H Baso # Seg Neutrophils % 70.8 H Seg Neuts % (Manual) Lymphocytes % (Manual) Monocytes % (Manual) Eosinophils % (Manual) Basophils % (Manual) Nucleated RBC % Seg Neutrophils # 11.0 H Seg Neutrophils # Man Lymphocytes # (Manual) Monocytes # (Manual) Eosinophils # (Manual) Basophils # (Manual) PT INR Fibrinogen dRVVT Confirm Interp Factor V Activity POC ABG pH POC ABG pCO2 POC ABG pO2 ABG pO2 ABG HCO3 ABG Base Excess ABG Hemoglobin Oxyhemoglobin Sodium Potassium Chloride Carbon Dioxide BUN 51 H Creatinine Glucose 117 H POC Glucose 136 H Lactic Acid Calcium Phosphorus Magnesium Direct Bilirubin AST ALT Alkaline Phosphatase Lactate Dehydrogenase Troponin T C-Reactive Protein Total Protein Albumin Prealbumin Triglycerides Cholesterol LDL Cholesterol Direct HDL Cholesterol Urine pH Urine WBC (Auto) Urine Creatinine Urine Total Protein Fluid Total Protein Vancomycin Trough Rheumatoid Factor Complement C4 Miscellaneous Test Crossmatch 12/09/16 12/09/16 12/09/16 12:29 17:52 23:10 WBC RBC Hgb Hct MCV MCH MCHC RDW Plt Count Lymph % (Auto) [place] % (Auto) Lymph # [place] # Baso # Seg Neutrophils % Seg Neuts % (Manual) Lymphocytes % (Manual) Monocytes % (Manual) Eosinophils % (Manual) Basophils % (Manual) Nucleated RBC % Seg Neutrophils # Seg Neutrophils # Man Lymphocytes # (Manual) Monocytes # (Manual) Eosinophils # (Manual) Basophils # (Manual) PT INR Fibrinogen dRVVT Confirm Interp Factor V Activity POC ABG pH POC ABG pCO2 POC ABG pO2 ABG pO2 ABG HCO3 ABG Base Excess ABG Hemoglobin Oxyhemoglobin Sodium Potassium Chloride Carbon Dioxide BUN Creatinine Glucose POC Glucose 139 H 140 H 129 H Lactic Acid Calcium Phosphorus Magnesium Direct Bilirubin AST ALT Alkaline Phosphatase Lactate Dehydrogenase Troponin T C-Reactive Protein Total Protein Albumin Prealbumin Triglycerides Cholesterol LDL Cholesterol Direct HDL Cholesterol Urine pH Urine WBC (Auto) Urine Creatinine Urine Total Protein Fluid Total Protein Vancomycin Trough Rheumatoid Factor Complement C4 Miscellaneous Test Crossmatch 12/10/16 12/10/16 12/10/16 05:00 05:00 06:54 WBC 15.7 H RBC 2.87 L Hgb 8.2 L Hct 24.4 L MCV MCH MCHC RDW 17.2 H Plt Count Lymph % (Auto) [place] % (Auto) 8.3 H Lymph # [place] # 1.3 H Baso # Seg Neutrophils % 72.8 H Seg Neuts % (Manual) Lymphocytes % (Manual) Monocytes % (Manual) Eosinophils % (Manual) Basophils % (Manual) Nucleated RBC % Seg Neutrophils # 11.4 H Seg Neutrophils # Man Lymphocytes # (Manual) Monocytes # (Manual) Eosinophils # (Manual) Basophils # (Manual) PT INR Fibrinogen dRVVT Confirm Interp Factor V Activity POC ABG pH POC ABG pCO2 POC ABG pO2 ABG pO2 ABG HCO3 ABG Base Excess ABG Hemoglobin Oxyhemoglobin Sodium Potassium Chloride Carbon Dioxide BUN 64 H Creatinine 1.4 H Glucose 134 H POC Glucose 154 H Lactic Acid Calcium Phosphorus Magnesium Direct Bilirubin AST ALT Alkaline Phosphatase Lactate Dehydrogenase Troponin T C-Reactive Protein Total Protein Albumin Prealbumin Triglycerides Cholesterol LDL Cholesterol Direct HDL Cholesterol Urine pH Urine WBC (Auto) Urine Creatinine Urine Total Protein Fluid Total Protein Vancomycin Trough Rheumatoid Factor Complement C4 Miscellaneous Test Crossmatch 12/10/16 12/10/16 12/10/16 11:58 17:29 23:52 WBC RBC Hgb Hct MCV MCH MCHC RDW Plt Count Lymph % (Auto) [place] % (Auto) Lymph # [place] # Baso # Seg Neutrophils % Seg Neuts % (Manual) Lymphocytes % (Manual) Monocytes % (Manual) Eosinophils % (Manual) Basophils % (Manual) Nucleated RBC % Seg Neutrophils # Seg Neutrophils # Man Lymphocytes # (Manual) Monocytes # (Manual) Eosinophils # (Manual) Basophils # (Manual) PT INR Fibrinogen dRVVT Confirm Interp Factor V Activity POC ABG pH POC ABG pCO2 POC ABG pO2 ABG pO2 ABG HCO3 ABG Base Excess ABG Hemoglobin Oxyhemoglobin Sodium Potassium Chloride Carbon Dioxide BUN Creatinine Glucose POC Glucose 144 H 163 H 125 H Lactic Acid Calcium Phosphorus Magnesium Direct Bilirubin AST ALT Alkaline Phosphatase Lactate Dehydrogenase Troponin T C-Reactive Protein Total Protein Albumin Prealbumin Triglycerides Cholesterol LDL Cholesterol Direct HDL Cholesterol Urine pH Urine WBC (Auto) Urine Creatinine Urine Total Protein Fluid Total Protein Vancomycin Trough Rheumatoid Factor Complement C4 Miscellaneous Test Crossmatch 12/11/16 12/11/16 12/11/16 05:38 06:30 06:30 WBC 14.4 H RBC 2.76 L Hgb 7.7 L Hct 23.4 L MCV MCH MCHC RDW 17.2 H Plt Count Lymph % (Auto) [place] % (Auto) 8.8 H Lymph # [place] # 1.3 H Baso # Seg Neutrophils % 72.5 H Seg Neuts % (Manual) Lymphocytes % (Manual) Monocytes % (Manual) Eosinophils % (Manual) Basophils % (Manual) Nucleated RBC % Seg Neutrophils # 10.5 H Seg Neutrophils # Man Lymphocytes # (Manual) Monocytes # (Manual) Eosinophils # (Manual) Basophils # (Manual) PT INR Fibrinogen dRVVT Confirm Interp Factor V Activity POC ABG pH POC ABG pCO2 POC ABG pO2 ABG pO2 ABG HCO3 ABG Base Excess ABG Hemoglobin Oxyhemoglobin Sodium Potassium Chloride Carbon Dioxide BUN 43 H Creatinine Glucose 124 H POC Glucose 141 H Lactic Acid Calcium 8.3 L Phosphorus Magnesium 1.60 L Direct Bilirubin AST ALT Alkaline Phosphatase Lactate Dehydrogenase Troponin T C-Reactive Protein Total Protein Albumin Prealbumin Triglycerides Cholesterol LDL Cholesterol Direct HDL Cholesterol Urine pH Urine WBC (Auto) Urine Creatinine Urine Total Protein Fluid Total Protein Vancomycin Trough Rheumatoid Factor Complement C4 Miscellaneous Test Crossmatch 12/11/16 12/11/16 12/11/16 11:15 17:59 23:48 WBC RBC Hgb Hct MCV MCH MCHC RDW Plt Count Lymph % (Auto) [place] % (Auto) Lymph # [place] # Baso # Seg Neutrophils % Seg Neuts % (Manual) Lymphocytes % (Manual) Monocytes % (Manual) Eosinophils % (Manual) Basophils % (Manual) Nucleated RBC % Seg Neutrophils # Seg Neutrophils # Man Lymphocytes # (Manual) Monocytes # (Manual) Eosinophils # (Manual) Basophils # (Manual) PT INR Fibrinogen dRVVT Confirm Interp Factor V Activity POC ABG pH POC ABG pCO2 POC ABG pO2 ABG pO2 ABG HCO3 ABG Base Excess ABG Hemoglobin Oxyhemoglobin Sodium Potassium Chloride Carbon Dioxide BUN Creatinine Glucose POC Glucose 188 H 106 H 119 H Lactic Acid Calcium Phosphorus Magnesium Direct Bilirubin AST ALT Alkaline Phosphatase Lactate Dehydrogenase Troponin T C-Reactive Protein Total Protein Albumin Prealbumin Triglycerides Cholesterol LDL Cholesterol Direct HDL Cholesterol Urine pH Urine WBC (Auto) Urine Creatinine Urine Total Protein Fluid Total Protein Vancomycin Trough Rheumatoid Factor Complement C4 Miscellaneous Test Crossmatch 12/12/16 12/12/16 12/12/16 05:00 06:01 12:20 WBC 16.7 H RBC 2.87 L Hgb 8.0 L Hct 24.2 L MCV MCH MCHC RDW 17.6 H Plt Count Lymph % (Auto) [place] % (Auto) Lymph # [place] # 1.2 H Baso # Seg Neutrophils % 75.3 H Seg Neuts % (Manual) Lymphocytes % (Manual) Monocytes % (Manual) Eosinophils % (Manual) Basophils % (Manual) Nucleated RBC % Seg Neutrophils # 12.6 H Seg Neutrophils # Man Lymphocytes # (Manual) Monocytes # (Manual) Eosinophils # (Manual) Basophils # (Manual) PT INR Fibrinogen dRVVT Confirm Interp Factor V Activity POC ABG pH POC ABG pCO2 POC ABG pO2 ABG pO2 ABG HCO3 ABG Base Excess ABG Hemoglobin Oxyhemoglobin Sodium Potassium Chloride Carbon Dioxide BUN Creatinine Glucose POC Glucose 134 H 149 H Lactic Acid Calcium Phosphorus Magnesium Direct Bilirubin AST ALT Alkaline Phosphatase Lactate Dehydrogenase Troponin T C-Reactive Protein Total Protein Albumin Prealbumin Triglycerides Cholesterol LDL Cholesterol Direct HDL Cholesterol Urine pH Urine WBC (Auto) Urine Creatinine Urine Total Protein Fluid Total Protein Vancomycin Trough Rheumatoid Factor Complement C4 Miscellaneous Test Crossmatch 12/12/16 12/12/16 12/12/16 17:38 23:01 Unknown WBC RBC Hgb Hct MCV MCH MCHC RDW Plt Count Lymph % (Auto) [place] % (Auto) Lymph # [place] # Baso # Seg Neutrophils % Seg Neuts % (Manual) Lymphocytes % (Manual) Monocytes % (Manual) Eosinophils % (Manual) Basophils % (Manual) Nucleated RBC % Seg Neutrophils # Seg Neutrophils # Man Lymphocytes # (Manual) Monocytes # (Manual) Eosinophils # (Manual) Basophils # (Manual) PT INR Fibrinogen dRVVT Confirm Interp Factor V Activity POC ABG pH POC ABG pCO2 POC ABG pO2 ABG pO2 ABG HCO3 ABG Base Excess ABG Hemoglobin Oxyhemoglobin Sodium Potassium Chloride Carbon Dioxide BUN 60 H Creatinine 1.3 H Glucose 126 H POC Glucose 127 H 144 H Lactic Acid Calcium Phosphorus Magnesium Direct Bilirubin AST ALT Alkaline Phosphatase Lactate Dehydrogenase Troponin T C-Reactive Protein Total Protein Albumin Prealbumin Triglycerides Cholesterol LDL Cholesterol Direct HDL Cholesterol Urine pH Urine WBC (Auto) Urine Creatinine Urine Total Protein Fluid Total Protein Vancomycin Trough Rheumatoid Factor Complement C4 Miscellaneous Test Crossmatch 12/13/16 12/13/16 12/13/16 04:00 04:00 05:19 WBC 18.7 H RBC 2.89 L Hgb 8.3 L Hct 24.6 L MCV MCH MCHC RDW 17.5 H Plt Count Lymph % (Auto) [place] % (Auto) Lymph # [place] # 1.3 H Baso # Seg Neutrophils % 71.5 H Seg Neuts % (Manual) Lymphocytes % (Manual) Monocytes % (Manual) Eosinophils % (Manual) Basophils % (Manual) Nucleated RBC % Seg Neutrophils # 13.4 H Seg Neutrophils # Man Lymphocytes # (Manual) Monocytes # (Manual) Eosinophils # (Manual) Basophils # (Manual) PT INR Fibrinogen dRVVT Confirm Interp Factor V Activity POC ABG pH POC ABG pCO2 POC ABG pO2 ABG pO2 ABG HCO3 ABG Base Excess ABG Hemoglobin Oxyhemoglobin Sodium Potassium Chloride Carbon Dioxide BUN 73 H Creatinine 1.5 H Glucose 141 H POC Glucose 171 H Lactic Acid Calcium Phosphorus Magnesium Direct Bilirubin AST ALT Alkaline Phosphatase Lactate Dehydrogenase Troponin T C-Reactive Protein Total Protein Albumin Prealbumin Triglycerides Cholesterol LDL Cholesterol Direct HDL Cholesterol Urine pH Urine WBC (Auto) Urine Creatinine Urine Total Protein Fluid Total Protein Vancomycin Trough Rheumatoid Factor Complement C4 Miscellaneous Test Crossmatch 12/13/16 12/13/16 12/14/16 12:28 16:48 00:01 WBC RBC Hgb Hct MCV MCH MCHC RDW Plt Count Lymph % (Auto) [place] % (Auto) Lymph # [place] # Baso # Seg Neutrophils % Seg Neuts % (Manual) Lymphocytes % (Manual) Monocytes % (Manual) Eosinophils % (Manual) Basophils % (Manual) Nucleated RBC % Seg Neutrophils # Seg Neutrophils # Man Lymphocytes # (Manual) Monocytes # (Manual) Eosinophils # (Manual) Basophils # (Manual) PT INR Fibrinogen dRVVT Confirm Interp Factor V Activity POC ABG pH POC ABG pCO2 POC ABG pO2 ABG pO2 ABG HCO3 ABG Base Excess ABG Hemoglobin Oxyhemoglobin Sodium Potassium Chloride Carbon Dioxide BUN Creatinine Glucose POC Glucose 206 H 173 H 139 H Lactic Acid Calcium Phosphorus Magnesium Direct Bilirubin AST ALT Alkaline Phosphatase Lactate Dehydrogenase Troponin T C-Reactive Protein Total Protein Albumin Prealbumin Triglycerides Cholesterol LDL Cholesterol Direct HDL Cholesterol Urine pH Urine WBC (Auto) Urine Creatinine Urine Total Protein Fluid Total Protein Vancomycin Trough Rheumatoid Factor Complement C4 Miscellaneous Test Crossmatch 12/14/16 12/14/16 12/14/16 05:16 06:10 11:17 WBC RBC Hgb Hct MCV MCH MCHC RDW Plt Count Lymph % (Auto) [place] % (Auto) Lymph # [place] # Baso # Seg Neutrophils % Seg Neuts % (Manual) Lymphocytes % (Manual) Monocytes % (Manual) Eosinophils % (Manual) Basophils % (Manual) Nucleated RBC % Seg Neutrophils # Seg Neutrophils # Man Lymphocytes # (Manual) Monocytes # (Manual) Eosinophils # (Manual) Basophils # (Manual) PT INR Fibrinogen dRVVT Confirm Interp Factor V Activity POC ABG pH POC ABG pCO2 POC ABG pO2 ABG pO2 ABG HCO3 ABG Base Excess ABG Hemoglobin Oxyhemoglobin Sodium Potassium Chloride Carbon Dioxide BUN 57 H Creatinine 1.4 H Glucose 135 H POC Glucose 158 H 137 H Lactic Acid Calcium Phosphorus Magnesium Direct Bilirubin AST ALT Alkaline Phosphatase Lactate Dehydrogenase Troponin T C-Reactive Protein Total Protein Albumin Prealbumin Triglycerides Cholesterol LDL Cholesterol Direct HDL Cholesterol Urine pH Urine WBC (Auto) Urine Creatinine Urine Total Protein Fluid Total Protein Vancomycin Trough Rheumatoid Factor Complement C4 Miscellaneous Test Crossmatch 12/14/16 12/14/16 12/15/16 17:52 23:27 04:00 WBC RBC Hgb Hct MCV MCH MCHC RDW Plt Count Lymph % (Auto) [place] % (Auto) Lymph # [place] # Baso # Seg Neutrophils % Seg Neuts % (Manual) Lymphocytes % (Manual) Monocytes % (Manual) Eosinophils % (Manual) Basophils % (Manual) Nucleated RBC % Seg Neutrophils # Seg Neutrophils # Man Lymphocytes # (Manual) Monocytes # (Manual) Eosinophils # (Manual) Basophils # (Manual) PT INR Fibrinogen dRVVT Confirm Interp Factor V Activity POC ABG pH POC ABG pCO2 POC ABG pO2 ABG pO2 ABG HCO3 ABG Base Excess ABG Hemoglobin Oxyhemoglobin Sodium Potassium Chloride 97.9 L Carbon Dioxide BUN 75 H Creatinine 1.6 H Glucose 122 H POC Glucose 149 H 163 H Lactic Acid Calcium Phosphorus 5.20 H Magnesium Direct Bilirubin AST ALT Alkaline Phosphatase Lactate Dehydrogenase Troponin T C-Reactive Protein Total Protein Albumin Prealbumin Triglycerides Cholesterol LDL Cholesterol Direct HDL Cholesterol Urine pH Urine WBC (Auto) Urine Creatinine Urine Total Protein Fluid Total Protein Vancomycin Trough Rheumatoid Factor Complement C4 Miscellaneous Test Crossmatch 12/15/16 12/15/16 12/15/16 05:50 11:24 17:01 WBC RBC Hgb Hct MCV MCH MCHC RDW Plt Count Lymph % (Auto) [place] % (Auto) Lymph # [place] # Baso # Seg Neutrophils % Seg Neuts % (Manual) Lymphocytes % (Manual) Monocytes % (Manual) Eosinophils % (Manual) Basophils % (Manual) Nucleated RBC % Seg Neutrophils # Seg Neutrophils # Man Lymphocytes # (Manual) Monocytes # (Manual) Eosinophils # (Manual) Basophils # (Manual) PT INR Fibrinogen dRVVT Confirm Interp Factor V Activity POC ABG pH POC ABG pCO2 POC ABG pO2 ABG pO2 ABG HCO3 ABG Base Excess ABG Hemoglobin Oxyhemoglobin Sodium Potassium Chloride Carbon Dioxide BUN Creatinine Glucose POC Glucose 150 H 146 H 167 H Lactic Acid Calcium Phosphorus Magnesium Direct Bilirubin AST ALT Alkaline Phosphatase Lactate Dehydrogenase Troponin T C-Reactive Protein Total Protein Albumin Prealbumin Triglycerides Cholesterol LDL Cholesterol Direct HDL Cholesterol Urine pH Urine WBC (Auto) Urine Creatinine Urine Total Protein Fluid Total Protein Vancomycin Trough Rheumatoid Factor Complement C4 Miscellaneous Test Crossmatch 12/15/16 12/16/16 12/16/16 23:34 05:25 11:24 WBC RBC Hgb Hct MCV MCH MCHC RDW Plt Count Lymph % (Auto) [place] % (Auto) Lymph # [place] # Baso # Seg Neutrophils % Seg Neuts % (Manual) Lymphocytes % (Manual) Monocytes % (Manual) Eosinophils % (Manual) Basophils % (Manual) Nucleated RBC % Seg Neutrophils # Seg Neutrophils # Man Lymphocytes # (Manual) Monocytes # (Manual) Eosinophils # (Manual) Basophils # (Manual) PT INR Fibrinogen dRVVT Confirm Interp Factor V Activity POC ABG pH POC ABG pCO2 POC ABG pO2 ABG pO2 ABG HCO3 ABG Base Excess ABG Hemoglobin Oxyhemoglobin Sodium Potassium Chloride Carbon Dioxide BUN Creatinine Glucose POC Glucose 127 H 139 H 165 H Lactic Acid Calcium Phosphorus Magnesium Direct Bilirubin AST ALT Alkaline Phosphatase Lactate Dehydrogenase Troponin T C-Reactive Protein Total Protein Albumin Prealbumin Triglycerides Cholesterol LDL Cholesterol Direct HDL Cholesterol Urine pH Urine WBC (Auto) Urine Creatinine Urine Total Protein Fluid Total Protein Vancomycin Trough Rheumatoid Factor Complement C4 Miscellaneous Test Crossmatch 12/16/16 12/16/16 12/16/16 15:30 16:25 17:31 WBC 17.8 H RBC 2.38 L Hgb 6.4 L Hct 20.3 L MCV MCH 27 L MCHC RDW 17.4 H Plt Count Lymph % (Auto) [place] % (Auto) Lymph # [place] # Baso # Seg Neutrophils % Seg Neuts % (Manual) Lymphocytes % (Manual) Monocytes % (Manual) 10.0 H Eosinophils % (Manual) Basophils % (Manual) Nucleated RBC % Seg Neutrophils # Seg Neutrophils # Man 8.5 H Lymphocytes # (Manual) Monocytes # (Manual) 1.8 H Eosinophils # (Manual) Basophils # (Manual) PT INR Fibrinogen dRVVT Confirm Interp Factor V Activity POC ABG pH POC ABG pCO2 POC ABG pO2 ABG pO2 ABG HCO3 ABG Base Excess ABG Hemoglobin Oxyhemoglobin Sodium Potassium Chloride Carbon Dioxide BUN Creatinine Glucose POC Glucose 176 H Lactic Acid Calcium Phosphorus Magnesium Direct Bilirubin AST ALT Alkaline Phosphatase Lactate Dehydrogenase Troponin T C-Reactive Protein Total Protein Albumin Prealbumin Triglycerides Cholesterol LDL Cholesterol Direct HDL Cholesterol Urine pH Urine WBC (Auto) Urine Creatinine Urine Total Protein Fluid Total Protein Vancomycin Trough Rheumatoid Factor Complement C4 Miscellaneous Test Crossmatch See Detail 12/17/16 12/17/16 12/17/16 00:14 04:00 05:00 WBC 20.0 H RBC 2.99 L Hgb 8.5 L Hct 25.7 L MCV MCH MCHC RDW 17.2 H Plt Count Lymph % (Auto) [place] % (Auto) Lymph # [place] # Baso # Seg Neutrophils % Seg Neuts % (Manual) Lymphocytes % (Manual) Monocytes % (Manual) Eosinophils % (Manual) Basophils % (Manual) Nucleated RBC % Seg Neutrophils # Seg Neutrophils # Man Lymphocytes # (Manual) Monocytes # (Manual) Eosinophils # (Manual) Basophils # (Manual) PT INR Fibrinogen dRVVT Confirm Interp Factor V Activity POC ABG pH POC ABG pCO2 POC ABG pO2 ABG pO2 ABG HCO3 ABG Base Excess ABG Hemoglobin Oxyhemoglobin Sodium Potassium Chloride 97.7 L Carbon Dioxide BUN 73 H Creatinine 1.7 H Glucose 136 H POC Glucose 148 H Lactic Acid Calcium Phosphorus 2.20 L Magnesium 2.70 H Direct Bilirubin AST ALT Alkaline Phosphatase Lactate Dehydrogenase Troponin T C-Reactive Protein Total Protein Albumin Prealbumin Triglycerides Cholesterol LDL Cholesterol Direct HDL Cholesterol Urine pH Urine WBC (Auto) Urine Creatinine Urine Total Protein Fluid Total Protein Vancomycin Trough Rheumatoid Factor Complement C4 Miscellaneous Test Crossmatch 12/17/16 12/17/16 12/17/16 05:39 12:50 16:32 WBC RBC Hgb Hct MCV MCH MCHC RDW Plt Count Lymph % (Auto) [place] % (Auto) Lymph # [place] # Baso # Seg Neutrophils % Seg Neuts % (Manual) Lymphocytes % (Manual) Monocytes % (Manual) Eosinophils % (Manual) Basophils % (Manual) Nucleated RBC % Seg Neutrophils # Seg Neutrophils # Man Lymphocytes # (Manual) Monocytes # (Manual) Eosinophils # (Manual) Basophils # (Manual) PT INR Fibrinogen dRVVT Confirm Interp Factor V Activity POC ABG pH POC ABG pCO2 POC ABG pO2 ABG pO2 ABG HCO3 ABG Base Excess ABG Hemoglobin Oxyhemoglobin Sodium Potassium Chloride Carbon Dioxide BUN Creatinine Glucose POC Glucose 162 H 146 H 169 H Lactic Acid Calcium Phosphorus Magnesium Direct Bilirubin AST ALT Alkaline Phosphatase Lactate Dehydrogenase Troponin T C-Reactive Protein Total Protein Albumin Prealbumin Triglycerides Cholesterol LDL Cholesterol Direct HDL Cholesterol Urine pH Urine WBC (Auto) Urine Creatinine Urine Total Protein Fluid Total Protein Vancomycin Trough Rheumatoid Factor Complement C4 Miscellaneous Test Crossmatch 12/17/16 12/18/16 12/18/16 23:57 05:00 05:32 WBC RBC Hgb Hct MCV MCH MCHC RDW Plt Count Lymph % (Auto) [place] % (Auto) Lymph # [place] # Baso # Seg Neutrophils % Seg Neuts % (Manual) Lymphocytes % (Manual) Monocytes % (Manual) Eosinophils % (Manual) Basophils % (Manual) Nucleated RBC % Seg Neutrophils # Seg Neutrophils # Man Lymphocytes # (Manual) Monocytes # (Manual) Eosinophils # (Manual) Basophils # (Manual) PT INR Fibrinogen dRVVT Confirm Interp Factor V Activity POC ABG pH POC ABG pCO2 POC ABG pO2 ABG pO2 ABG HCO3 ABG Base Excess ABG Hemoglobin Oxyhemoglobin Sodium Potassium Chloride 97.0 L Carbon Dioxide BUN 63 H Creatinine 1.4 H Glucose 174 H POC Glucose 145 H 201 H Lactic Acid Calcium Phosphorus 1.70 L D Magnesium Direct Bilirubin AST ALT Alkaline Phosphatase 257 H Lactate Dehydrogenase Troponin T C-Reactive Protein Total Protein 5.9 L Albumin 1.8 L Prealbumin Triglycerides Cholesterol LDL Cholesterol Direct HDL Cholesterol Urine pH Urine WBC (Auto) Urine Creatinine Urine Total Protein Fluid Total Protein Vancomycin Trough Rheumatoid Factor Complement C4 Miscellaneous Test Crossmatch 12/18/16 12/18/16 12/18/16 11:43 16:52 23:52 WBC RBC Hgb Hct MCV MCH MCHC RDW Plt Count Lymph % (Auto) [place] % (Auto) Lymph # [place] # Baso # Seg Neutrophils % Seg Neuts % (Manual) Lymphocytes % (Manual) Monocytes % (Manual) Eosinophils % (Manual) Basophils % (Manual) Nucleated RBC % Seg Neutrophils # Seg Neutrophils # Man Lymphocytes # (Manual) Monocytes # (Manual) Eosinophils # (Manual) Basophils # (Manual) PT INR Fibrinogen dRVVT Confirm Interp Factor V Activity POC ABG pH POC ABG pCO2 POC ABG pO2 ABG pO2 ABG HCO3 ABG Base Excess ABG Hemoglobin Oxyhemoglobin Sodium Potassium Chloride Carbon Dioxide BUN Creatinine Glucose POC Glucose 177 H 110 H 162 H Lactic Acid Calcium Phosphorus Magnesium Direct Bilirubin AST ALT Alkaline Phosphatase Lactate Dehydrogenase Troponin T C-Reactive Protein Total Protein Albumin Prealbumin Triglycerides Cholesterol LDL Cholesterol Direct HDL Cholesterol Urine pH Urine WBC (Auto) Urine Creatinine Urine Total Protein Fluid Total Protein Vancomycin Trough Rheumatoid Factor Complement C4 Miscellaneous Test Crossmatch 12/19/16 12/19/16 12/19/16 05:02 05:24 09:30 WBC 20.1 H RBC 2.73 L Hgb 7.6 L Hct 23.6 L MCV MCH MCHC RDW 17.6 H Plt Count Lymph % (Auto) [place] % (Auto) Lymph # [place] # Baso # Seg Neutrophils % Seg Neuts % (Manual) Lymphocytes % (Manual) 13.0 L Monocytes % (Manual) Eosinophils % (Manual) Basophils % (Manual) Nucleated RBC % 1.0 H Seg Neutrophils # Seg Neutrophils # Man 12.9 H Lymphocytes # (Manual) Monocytes # (Manual) 1.4 H Eosinophils # (Manual) Basophils # (Manual) 0.2 H PT INR Fibrinogen dRVVT Confirm Interp Factor V Activity POC ABG pH POC ABG pCO2 POC ABG pO2 ABG pO2 ABG HCO3 ABG Base Excess ABG Hemoglobin Oxyhemoglobin Sodium Potassium Chloride 97.8 L Carbon Dioxide BUN 84 H Creatinine 1.6 H Glucose 133 H POC Glucose 134 H Lactic Acid Calcium Phosphorus Magnesium Direct Bilirubin AST ALT Alkaline Phosphatase Lactate Dehydrogenase Troponin T C-Reactive Protein Total Protein Albumin Prealbumin Triglycerides Cholesterol LDL Cholesterol Direct HDL Cholesterol Urine pH Urine WBC (Auto) Urine Creatinine Urine Total Protein Fluid Total Protein Vancomycin Trough Rheumatoid Factor Complement C4 Miscellaneous Test Crossmatch 12/19/16 12/19/16 12/19/16 09:36 11:12 18:29 WBC RBC Hgb Hct MCV MCH MCHC RDW Plt Count Lymph % (Auto) [place] % (Auto) Lymph # [place] # Baso # Seg Neutrophils % Seg Neuts % (Manual) Lymphocytes % (Manual) Monocytes % (Manual) Eosinophils % (Manual) Basophils % (Manual) Nucleated RBC % Seg Neutrophils # Seg Neutrophils # Man Lymphocytes # (Manual) Monocytes # (Manual) Eosinophils # (Manual) Basophils # (Manual) PT INR Fibrinogen dRVVT Confirm Interp Factor V Activity POC ABG pH 7.503 H POC ABG pCO2 30.1 L POC ABG pO2 ABG pO2 ABG HCO3 ABG Base Excess ABG Hemoglobin Oxyhemoglobin Sodium Potassium Chloride Carbon Dioxide BUN Creatinine Glucose POC Glucose 138 H 156 H Lactic Acid Calcium Phosphorus Magnesium Direct Bilirubin AST ALT Alkaline Phosphatase Lactate Dehydrogenase Troponin T C-Reactive Protein Total Protein Albumin Prealbumin Triglycerides Cholesterol LDL Cholesterol Direct HDL Cholesterol Urine pH Urine WBC (Auto) Urine Creatinine Urine Total Protein Fluid Total Protein Vancomycin Trough Rheumatoid Factor Complement C4 Miscellaneous Test Crossmatch 1012/20/16 12/20/16 00:03 06:17 07:07 WBC RBC Hgb Hct MCV MCH MCHC RDW Plt Count Lymph % (Auto) [place] % (Auto) Lymph # [place] # Baso # Seg Neutrophils % Seg Neuts % (Manual) Lymphocytes % (Manual) Monocytes % (Manual) Eosinophils % (Manual) Basophils % (Manual) Nucleated RBC % Seg Neutrophils # Seg Neutrophils # Man Lymphocytes # (Manual) Monocytes # (Manual) Eosinophils # (Manual) Basophils # (Manual) PT INR Fibrinogen dRVVT Confirm Interp Factor V Activity POC ABG pH POC ABG pCO2 POC ABG pO2 ABG pO2 ABG HCO3 ABG Base Excess ABG Hemoglobin Oxyhemoglobin Sodium Potassium Chloride 97.1 L Carbon Dioxide 20 L BUN 97 H Creatinine 1.8 H Glucose 153 H POC Glucose 152 H 175 H Lactic Acid Calcium Phosphorus Magnesium Direct Bilirubin AST ALT Alkaline Phosphatase Lactate Dehydrogenase Troponin T C-Reactive Protein Total Protein Albumin Prealbumin Triglycerides Cholesterol LDL Cholesterol Direct HDL Cholesterol Urine pH Urine WBC (Auto) Urine Creatinine Urine Total Protein Fluid Total Protein Vancomycin Trough Rheumatoid Factor Complement C4 Miscellaneous Test Crossmatch 12/20/16 12/20/16 12/20/16 12:00 17:42 23:53 WBC RBC Hgb Hct MCV MCH MCHC RDW Plt Count Lymph % (Auto) [place] % (Auto) Lymph # [place] # Baso # Seg Neutrophils % Seg Neuts % (Manual) Lymphocytes % (Manual) Monocytes % (Manual) Eosinophils % (Manual) Basophils % (Manual) Nucleated RBC % Seg Neutrophils # Seg Neutrophils # Man Lymphocytes # (Manual) Monocytes # (Manual) Eosinophils # (Manual) Basophils # (Manual) PT INR Fibrinogen dRVVT Confirm Interp Factor V Activity POC ABG pH POC ABG pCO2 POC ABG pO2 ABG pO2 ABG HCO3 ABG Base Excess ABG Hemoglobin Oxyhemoglobin Sodium Potassium Chloride Carbon Dioxide BUN Creatinine Glucose POC Glucose 141 H 156 H 132 H Lactic Acid Calcium Phosphorus Magnesium Direct Bilirubin AST ALT Alkaline Phosphatase Lactate Dehydrogenase Troponin T C-Reactive Protein Total Protein Albumin Prealbumin Triglycerides Cholesterol LDL Cholesterol Direct HDL Cholesterol Urine pH Urine WBC (Auto) Urine Creatinine Urine Total Protein Fluid Total Protein Vancomycin Trough Rheumatoid Factor Complement C4 Miscellaneous Test Crossmatch 12/21/16 12/21/16 12/21/16 05:49 08:50 12:19 WBC RBC Hgb Hct MCV MCH MCHC RDW Plt Count Lymph % (Auto) [place] % (Auto) Lymph # [place] # Baso # Seg Neutrophils % Seg Neuts % (Manual) Lymphocytes % (Manual) Monocytes % (Manual) Eosinophils % (Manual) Basophils % (Manual) Nucleated RBC % Seg Neutrophils # Seg Neutrophils # Man Lymphocytes # (Manual) Monocytes # (Manual) Eosinophils # (Manual) Basophils # (Manual) PT INR Fibrinogen dRVVT Confirm Interp Factor V Activity POC ABG pH POC ABG pCO2 POC ABG pO2 ABG pO2 ABG HCO3 ABG Base Excess ABG Hemoglobin Oxyhemoglobin Sodium Potassium 5.2 H D Chloride Carbon Dioxide BUN 63 H Creatinine Glucose 122 H POC Glucose 132 H 136 H Lactic Acid Calcium 8.3 L Phosphorus Magnesium Direct Bilirubin AST ALT Alkaline Phosphatase Lactate Dehydrogenase Troponin T C-Reactive Protein Total Protein Albumin Prealbumin Triglycerides Cholesterol LDL Cholesterol Direct HDL Cholesterol Urine pH Urine WBC (Auto) Urine Creatinine Urine Total Protein Fluid Total Protein Vancomycin Trough Rheumatoid Factor Complement C4 Miscellaneous Test Crossmatch 12/21/16 12/21/16 12/22/16 17:22 23:58 05:49 WBC RBC Hgb Hct MCV MCH MCHC RDW Plt Count Lymph % (Auto) [place] % (Auto) Lymph # [place] # Baso # Seg Neutrophils % Seg Neuts % (Manual) Lymphocytes % (Manual) Monocytes % (Manual) Eosinophils % (Manual) Basophils % (Manual) Nucleated RBC % Seg Neutrophils # Seg Neutrophils # Man Lymphocytes # (Manual) Monocytes # (Manual) Eosinophils # (Manual) Basophils # (Manual) PT INR Fibrinogen dRVVT Confirm Interp Factor V Activity POC ABG pH POC ABG pCO2 POC ABG pO2 ABG pO2 ABG HCO3 ABG Base Excess ABG Hemoglobin Oxyhemoglobin Sodium Potassium Chloride Carbon Dioxide BUN Creatinine Glucose POC Glucose 135 H 149 H 140 H Lactic Acid Calcium Phosphorus Magnesium Direct Bilirubin AST ALT Alkaline Phosphatase Lactate Dehydrogenase Troponin T C-Reactive Protein Total Protein Albumin Prealbumin Triglycerides Cholesterol LDL Cholesterol Direct HDL Cholesterol Urine pH Urine WBC (Auto) Urine Creatinine Urine Total Protein Fluid Total Protein Vancomycin Trough Rheumatoid Factor Complement C4 Miscellaneous Test Crossmatch 12/22/16 12/22/16 12/22/16 06:10 11:17 17:31 WBC RBC Hgb Hct MCV MCH MCHC RDW Plt Count Lymph % (Auto) [place] % (Auto) Lymph # [place] # Baso # Seg Neutrophils % Seg Neuts % (Manual) Lymphocytes % (Manual) Monocytes % (Manual) Eosinophils % (Manual) Basophils % (Manual) Nucleated RBC % Seg Neutrophils # Seg Neutrophils # Man Lymphocytes # (Manual) Monocytes # (Manual) Eosinophils # (Manual) Basophils # (Manual) PT INR Fibrinogen dRVVT Confirm Interp Factor V Activity POC ABG pH POC ABG pCO2 POC ABG pO2 ABG pO2 ABG HCO3 ABG Base Excess ABG Hemoglobin Oxyhemoglobin Sodium Potassium Chloride Carbon Dioxide BUN 76 H Creatinine 1.5 H Glucose 241 H POC Glucose 193 H 148 H Lactic Acid Calcium Phosphorus Magnesium Direct Bilirubin AST ALT Alkaline Phosphatase Lactate Dehydrogenase Troponin T C-Reactive Protein Total Protein Albumin Prealbumin Triglycerides Cholesterol LDL Cholesterol Direct HDL Cholesterol Urine pH Urine WBC (Auto) Urine Creatinine Urine Total Protein Fluid Total Protein Vancomycin Trough Rheumatoid Factor Complement C4 Miscellaneous Test Crossmatch 12/22/16 12/23/16 12/23/16 23:58 05:00 05:26 WBC RBC Hgb Hct MCV MCH MCHC RDW Plt Count Lymph % (Auto) [place] % (Auto) Lymph # [place] # Baso # Seg Neutrophils % Seg Neuts % (Manual) Lymphocytes % (Manual) Monocytes % (Manual) Eosinophils % (Manual) Basophils % (Manual) Nucleated RBC % Seg Neutrophils # Seg Neutrophils # Man Lymphocytes # (Manual) Monocytes # (Manual) Eosinophils # (Manual) Basophils # (Manual) PT INR Fibrinogen dRVVT Confirm Interp Factor V Activity POC ABG pH POC ABG pCO2 POC ABG pO2 ABG pO2 ABG HCO3 ABG Base Excess ABG Hemoglobin Oxyhemoglobin Sodium Potassium Chloride Carbon Dioxide BUN 49 H Creatinine Glucose 143 H POC Glucose 165 H 154 H Lactic Acid Calcium 8.2 L Phosphorus Magnesium 1.60 L Direct Bilirubin AST ALT Alkaline Phosphatase Lactate Dehydrogenase Troponin T C-Reactive Protein Total Protein Albumin Prealbumin Triglycerides Cholesterol LDL Cholesterol Direct HDL Cholesterol Urine pH Urine WBC (Auto) Urine Creatinine Urine Total Protein Fluid Total Protein Vancomycin Trough Rheumatoid Factor Complement C4 Miscellaneous Test Crossmatch 12/23/16 12/23/16 12/24/16 12:35 17:01 00:01 WBC RBC Hgb Hct MCV MCH MCHC RDW Plt Count Lymph % (Auto) [place] % (Auto) Lymph # [place] # Baso # Seg Neutrophils % Seg Neuts % (Manual) Lymphocytes % (Manual) Monocytes % (Manual) Eosinophils % (Manual) Basophils % (Manual) Nucleated RBC % Seg Neutrophils # Seg Neutrophils # Man Lymphocytes # (Manual) Monocytes # (Manual) Eosinophils # (Manual) Basophils # (Manual) PT INR Fibrinogen dRVVT Confirm Interp Factor V Activity POC ABG pH POC ABG pCO2 POC ABG pO2 ABG pO2 ABG HCO3 ABG Base Excess ABG Hemoglobin Oxyhemoglobin Sodium Potassium Chloride Carbon Dioxide BUN Creatinine Glucose POC Glucose 164 H 149 H 135 H Lactic Acid Calcium Phosphorus Magnesium Direct Bilirubin AST ALT Alkaline Phosphatase Lactate Dehydrogenase Troponin T C-Reactive Protein Total Protein Albumin Prealbumin Triglycerides Cholesterol LDL Cholesterol Direct HDL Cholesterol Urine pH Urine WBC (Auto) Urine Creatinine Urine Total Protein Fluid Total Protein Vancomycin Trough Rheumatoid Factor Complement C4 Miscellaneous Test Crossmatch 12/24/16 12/24/16 12/24/16 05:41 07:01 11:38 WBC RBC Hgb Hct MCV MCH MCHC RDW Plt Count Lymph % (Auto) [place] % (Auto) Lymph # [place] # Baso # Seg Neutrophils % Seg Neuts % (Manual) Lymphocytes % (Manual) Monocytes % (Manual) Eosinophils % (Manual) Basophils % (Manual) Nucleated RBC % Seg Neutrophils # Seg Neutrophils # Man Lymphocytes # (Manual) Monocytes # (Manual) Eosinophils # (Manual) Basophils # (Manual) PT INR Fibrinogen dRVVT Confirm Interp Factor V Activity POC ABG pH POC ABG pCO2 POC ABG pO2 ABG pO2 ABG HCO3 ABG Base Excess ABG Hemoglobin Oxyhemoglobin Sodium Potassium Chloride Carbon Dioxide BUN 72 H Creatinine 1.3 H Glucose 130 H POC Glucose 132 H 156 H Lactic Acid Calcium 8.2 L Phosphorus Magnesium Direct Bilirubin AST ALT Alkaline Phosphatase Lactate Dehydrogenase Troponin T C-Reactive Protein Total Protein Albumin Prealbumin Triglycerides Cholesterol LDL Cholesterol Direct HDL Cholesterol Urine pH Urine WBC (Auto) Urine Creatinine Urine Total Protein Fluid Total Protein Vancomycin Trough Rheumatoid Factor Complement C4 Miscellaneous Test Crossmatch 12/24/16 12/25/16 12/25/16 17:53 00:23 05:45 WBC RBC Hgb Hct MCV MCH MCHC RDW Plt Count Lymph % (Auto) [place] % (Auto) Lymph # [place] # Baso # Seg Neutrophils % Seg Neuts % (Manual) Lymphocytes % (Manual) Monocytes % (Manual) Eosinophils % (Manual) Basophils % (Manual) Nucleated RBC % Seg Neutrophils # Seg Neutrophils # Man Lymphocytes # (Manual) Monocytes # (Manual) Eosinophils # (Manual) Basophils # (Manual) PT INR Fibrinogen dRVVT Confirm Interp Factor V Activity POC ABG pH POC ABG pCO2 POC ABG pO2 ABG pO2 ABG HCO3 ABG Base Excess ABG Hemoglobin Oxyhemoglobin Sodium 146 H Potassium Chloride Carbon Dioxide BUN 51 H Creatinine Glucose 109 H POC Glucose 169 H 117 H Lactic Acid Calcium Phosphorus Magnesium Direct Bilirubin AST ALT Alkaline Phosphatase Lactate Dehydrogenase Troponin T C-Reactive Protein Total Protein Albumin Prealbumin Triglycerides Cholesterol LDL Cholesterol Direct HDL Cholesterol Urine pH Urine WBC (Auto) Urine Creatinine Urine Total Protein Fluid Total Protein Vancomycin Trough Rheumatoid Factor Complement C4 Miscellaneous Test Crossmatch 12/25/16 12/25/16 12/25/16 06:43 11:29 17:14 WBC RBC Hgb Hct MCV MCH MCHC RDW Plt Count Lymph % (Auto) [place] % (Auto) Lymph # [place] # Baso # Seg Neutrophils % Seg Neuts % (Manual) Lymphocytes % (Manual) Monocytes % (Manual) Eosinophils % (Manual) Basophils % (Manual) Nucleated RBC % Seg Neutrophils # Seg Neutrophils # Man Lymphocytes # (Manual) Monocytes # (Manual) Eosinophils # (Manual) Basophils # (Manual) PT INR Fibrinogen dRVVT Confirm Interp Factor V Activity POC ABG pH POC ABG pCO2 POC ABG pO2 ABG pO2 ABG HCO3 ABG Base Excess ABG Hemoglobin Oxyhemoglobin Sodium Potassium Chloride Carbon Dioxide BUN Creatinine Glucose POC Glucose 117 H 128 H 120 H Lactic Acid Calcium Phosphorus Magnesium Direct Bilirubin AST ALT Alkaline Phosphatase Lactate Dehydrogenase Troponin T C-Reactive Protein Total Protein Albumin Prealbumin Triglycerides Cholesterol LDL Cholesterol Direct HDL Cholesterol Urine pH Urine WBC (Auto) Urine Creatinine Urine Total Protein Fluid Total Protein Vancomycin Trough Rheumatoid Factor Complement C4 Miscellaneous Test Crossmatch 12/25/16 12/26/16 12/26/16 23:54 05:40 05:50 WBC 16.2 H RBC 2.32 L Hgb 6.2 L Hct 20.1 L MCV MCH 27 L MCHC RDW 18.6 H Plt Count Lymph % (Auto) [place] % (Auto) Lymph # [place] # Baso # Seg Neutrophils % Seg Neuts % (Manual) Lymphocytes % (Manual) Monocytes % (Manual) Eosinophils % (Manual) Basophils % (Manual) Nucleated RBC % Seg Neutrophils # Seg Neutrophils # Man Lymphocytes # (Manual) Monocytes # (Manual) Eosinophils # (Manual) Basophils # (Manual) PT INR Fibrinogen dRVVT Confirm Interp Factor V Activity POC ABG pH POC ABG pCO2 POC ABG pO2 ABG pO2 ABG HCO3 ABG Base Excess ABG Hemoglobin Oxyhemoglobin Sodium Potassium Chloride Carbon Dioxide BUN Creatinine Glucose POC Glucose 126 H 132 H Lactic Acid Calcium Phosphorus Magnesium Direct Bilirubin AST ALT Alkaline Phosphatase Lactate Dehydrogenase Troponin T C-Reactive Protein Total Protein Albumin Prealbumin Triglycerides Cholesterol LDL Cholesterol Direct HDL Cholesterol Urine pH Urine WBC (Auto) Urine Creatinine Urine Total Protein Fluid Total Protein Vancomycin Trough Rheumatoid Factor Complement C4 Miscellaneous Test Crossmatch 12/26/16 12/26/16 12/26/16 05:50 12:17 12:33 WBC RBC Hgb Hct MCV MCH MCHC RDW Plt Count Lymph % (Auto) [place] % (Auto) Lymph # [place] # Baso # Seg Neutrophils % Seg Neuts % (Manual) Lymphocytes % (Manual) Monocytes % (Manual) Eosinophils % (Manual) Basophils % (Manual) Nucleated RBC % Seg Neutrophils # Seg Neutrophils # Man Lymphocytes # (Manual) Monocytes # (Manual) Eosinophils # (Manual) Basophils # (Manual) PT INR Fibrinogen dRVVT Confirm Interp Factor V Activity POC ABG pH POC ABG pCO2 POC ABG pO2 ABG pO2 ABG HCO3 ABG Base Excess ABG Hemoglobin Oxyhemoglobin Sodium Potassium Chloride Carbon Dioxide BUN 73 H Creatinine 1.3 H Glucose 113 H POC Glucose 117 H Lactic Acid Calcium Phosphorus Magnesium Direct Bilirubin AST ALT Alkaline Phosphatase Lactate Dehydrogenase Troponin T C-Reactive Protein Total Protein Albumin Prealbumin Triglycerides Cholesterol LDL Cholesterol Direct HDL Cholesterol Urine pH Urine WBC (Auto) Urine Creatinine Urine Total Protein Fluid Total Protein Vancomycin Trough Rheumatoid Factor Complement C4 Miscellaneous Test Crossmatch See Detail 12/26/16 12/26/16 12/27/16 20:00 23:21 05:00 WBC RBC Hgb 8.4 L Hct 26.3 L D MCV MCH MCHC RDW Plt Count Lymph % (Auto) [place] % (Auto) Lymph # [place] # Baso # Seg Neutrophils % Seg Neuts % (Manual) Lymphocytes % (Manual) Monocytes % (Manual) Eosinophils % (Manual) Basophils % (Manual) Nucleated RBC % Seg Neutrophils # Seg Neutrophils # Man Lymphocytes # (Manual) Monocytes # (Manual) Eosinophils # (Manual) Basophils # (Manual) PT INR Fibrinogen dRVVT Confirm Interp Factor V Activity POC ABG pH POC ABG pCO2 POC ABG pO2 ABG pO2 ABG HCO3 ABG Base Excess ABG Hemoglobin Oxyhemoglobin Sodium Potassium Chloride Carbon Dioxide BUN 85 H Creatinine 1.6 H Glucose 118 H POC Glucose 124 H Lactic Acid Calcium Phosphorus 4.80 H Magnesium Direct Bilirubin AST ALT Alkaline Phosphatase Lactate Dehydrogenase Troponin T C-Reactive Protein Total Protein Albumin Prealbumin Triglycerides Cholesterol LDL Cholesterol Direct HDL Cholesterol Urine pH Urine WBC (Auto) Urine Creatinine Urine Total Protein Fluid Total Protein Vancomycin Trough Rheumatoid Factor Complement C4 Miscellaneous Test Crossmatch 12/27/16 12/27/16 12/27/16 05:00 05:35 12:24 WBC RBC Hgb 7.6 L Hct 22.8 L MCV MCH MCHC RDW Plt Count Lymph % (Auto) [place] % (Auto) Lymph # [place] # Baso # Seg Neutrophils % Seg Neuts % (Manual) Lymphocytes % (Manual) Monocytes % (Manual) Eosinophils % (Manual) Basophils % (Manual) Nucleated RBC % Seg Neutrophils # Seg Neutrophils # Man Lymphocytes # (Manual) Monocytes # (Manual) Eosinophils # (Manual) Basophils # (Manual) PT INR Fibrinogen dRVVT Confirm Interp Factor V Activity POC ABG pH POC ABG pCO2 POC ABG pO2 ABG pO2 ABG HCO3 ABG Base Excess ABG Hemoglobin Oxyhemoglobin Sodium Potassium Chloride Carbon Dioxide BUN Creatinine Glucose POC Glucose 115 H 131 H Lactic Acid Calcium Phosphorus Magnesium Direct Bilirubin AST ALT Alkaline Phosphatase Lactate Dehydrogenase Troponin T C-Reactive Protein Total Protein Albumin Prealbumin Triglycerides Cholesterol LDL Cholesterol Direct HDL Cholesterol Urine pH Urine WBC (Auto) Urine Creatinine Urine Total Protein Fluid Total Protein Vancomycin Trough Rheumatoid Factor Complement C4 Miscellaneous Test Crossmatch 12/27/16 12/28/16 12/28/16 17:16 00:18 04:00 WBC RBC Hgb Hct MCV MCH MCHC RDW Plt Count Lymph % (Auto) [place] % (Auto) Lymph # [place] # Baso # Seg Neutrophils % Seg Neuts % (Manual) Lymphocytes % (Manual) Monocytes % (Manual) Eosinophils % (Manual) Basophils % (Manual) Nucleated RBC % Seg Neutrophils # Seg Neutrophils # Man Lymphocytes # (Manual) Monocytes # (Manual) Eosinophils # (Manual) Basophils # (Manual) PT INR Fibrinogen dRVVT Confirm Interp Factor V Activity POC ABG pH POC ABG pCO2 POC ABG pO2 ABG pO2 ABG HCO3 ABG Base Excess ABG Hemoglobin Oxyhemoglobin Sodium Potassium 3.5 L Chloride Carbon Dioxide BUN 57 H Creatinine Glucose 118 H POC Glucose 136 H 120 H Lactic Acid Calcium 8.3 L Phosphorus Magnesium Direct Bilirubin AST ALT Alkaline Phosphatase Lactate Dehydrogenase Troponin T C-Reactive Protein Total Protein Albumin Prealbumin Triglycerides Cholesterol LDL Cholesterol Direct HDL Cholesterol Urine pH Urine WBC (Auto) Urine Creatinine Urine Total Protein Fluid Total Protein Vancomycin Trough Rheumatoid Factor Complement C4 Miscellaneous Test Crossmatch 12/28/16 12/28/16 12/28/16 04:00 05:11 08:30 WBC 17.0 H RBC 2.58 L Hgb 7.1 L Hct 22.0 L MCV MCH MCHC RDW 17.6 H Plt Count Lymph % (Auto) 12.2 L [place] % (Auto) Lymph # Barton # 1.1 H Baso # Seg Neutrophils % 80.5 H Seg Neuts % (Manual) Lymphocytes % (Manual) Monocytes % (Manual) Eosinophils % (Manual) Basophils % (Manual) Nucleated RBC % Seg Neutrophils # 13.7 H Seg Neutrophils # Man Lymphocytes # (Manual) Monocytes # (Manual) Eosinophils # (Manual) Basophils # (Manual) PT 16.1 H INR 1.23 H Fibrinogen dRVVT Confirm Interp Factor V Activity POC ABG pH POC ABG pCO2 POC ABG pO2 ABG pO2 ABG HCO3 ABG Base Excess ABG Hemoglobin Oxyhemoglobin Sodium Potassium Chloride Carbon Dioxide BUN Creatinine Glucose POC Glucose 122 H Lactic Acid Calcium Phosphorus Magnesium Direct Bilirubin AST ALT Alkaline Phosphatase Lactate Dehydrogenase Troponin T C-Reactive Protein Total Protein Albumin Prealbumin Triglycerides Cholesterol LDL Cholesterol Direct HDL Cholesterol Urine pH Urine WBC (Auto) Urine Creatinine Urine Total Protein Fluid Total Protein Vancomycin Trough Rheumatoid Factor Complement C4 Miscellaneous Test Crossmatch 12/28/16 12/28/16 12/28/16 12:27 16:32 23:46 WBC RBC Hgb Hct MCV MCH MCHC RDW Plt Count Lymph % (Auto) [place] % (Auto) Lymph # [place] # Baso # Seg Neutrophils % Seg Neuts % (Manual) Lymphocytes % (Manual) Monocytes % (Manual) Eosinophils % (Manual) Basophils % (Manual) Nucleated RBC % Seg Neutrophils # Seg Neutrophils # Man Lymphocytes # (Manual) Monocytes # (Manual) Eosinophils # (Manual) Basophils # (Manual) PT INR Fibrinogen dRVVT Confirm Interp Factor V Activity POC ABG pH POC ABG pCO2 POC ABG pO2 ABG pO2 ABG HCO3 ABG Base Excess ABG Hemoglobin Oxyhemoglobin Sodium Potassium Chloride Carbon Dioxide BUN Creatinine Glucose POC Glucose 127 H 117 H 108 H Lactic Acid Calcium Phosphorus Magnesium Direct Bilirubin AST ALT Alkaline Phosphatase Lactate Dehydrogenase Troponin T C-Reactive Protein Total Protein Albumin Prealbumin Triglycerides Cholesterol LDL Cholesterol Direct HDL Cholesterol Urine pH Urine WBC (Auto) Urine Creatinine Urine Total Protein Fluid Total Protein Vancomycin Trough Rheumatoid Factor Complement C4 Miscellaneous Test Crossmatch 12/29/16 12/29/16 12/29/16 05:15 05:15 05:32 WBC RBC Hgb Hct MCV MCH MCHC RDW Plt Count Lymph % (Auto) [place] % (Auto) Lymph # [place] # Baso # Seg Neutrophils % Seg Neuts % (Manual) Lymphocytes % (Manual) Monocytes % (Manual) Eosinophils % (Manual) Basophils % (Manual) Nucleated RBC % Seg Neutrophils # Seg Neutrophils # Man Lymphocytes # (Manual) Monocytes # (Manual) Eosinophils # (Manual) Basophils # (Manual) PT INR Fibrinogen dRVVT Confirm Interp Factor V Activity POC ABG pH POC ABG pCO2 POC ABG pO2 ABG pO2 ABG HCO3 ABG Base Excess ABG Hemoglobin Oxyhemoglobin Sodium Potassium Chloride Carbon Dioxide BUN 74 H Creatinine 1.6 H Glucose 111 H POC Glucose 123 H Lactic Acid Calcium Phosphorus Magnesium Direct Bilirubin AST ALT Alkaline Phosphatase Lactate Dehydrogenase Troponin T C-Reactive Protein Total Protein Albumin Prealbumin 0.110 L Triglycerides Cholesterol LDL Cholesterol Direct HDL Cholesterol Urine pH Urine WBC (Auto) Urine Creatinine Urine Total Protein Fluid Total Protein Vancomycin Trough Rheumatoid Factor Complement C4 Miscellaneous Test Crossmatch 12/29/16 12/29/16 12/29/16 11:43 13:45 14:00 WBC 13.8 H RBC 2.26 L Hgb 6.3 L Hct 20.4 L MCV MCH MCHC RDW 18.3 H Plt Count Lymph % (Auto) [place] % (Auto) Lymph # [place] # 0.9 H Baso # Seg Neutrophils % 78.6 H Seg Neuts % (Manual) Lymphocytes % (Manual) Monocytes % (Manual) Eosinophils % (Manual) Basophils % (Manual) Nucleated RBC % Seg Neutrophils # 10.8 H Seg Neutrophils # Man Lymphocytes # (Manual) Monocytes # (Manual) Eosinophils # (Manual) Basophils # (Manual) PT INR Fibrinogen dRVVT Confirm Interp Factor V Activity POC ABG pH POC ABG pCO2 POC ABG pO2 ABG pO2 ABG HCO3 ABG Base Excess ABG Hemoglobin Oxyhemoglobin Sodium Potassium Chloride Carbon Dioxide BUN Creatinine Glucose POC Glucose 133 H Lactic Acid Calcium Phosphorus Magnesium Direct Bilirubin AST ALT Alkaline Phosphatase Lactate Dehydrogenase Troponin T C-Reactive Protein Total Protein Albumin Prealbumin Triglycerides Cholesterol LDL Cholesterol Direct HDL Cholesterol Urine pH Urine WBC (Auto) Urine Creatinine Urine Total Protein Fluid Total Protein Vancomycin Trough Rheumatoid Factor Complement C4 Miscellaneous Test Crossmatch See Detail 12/29/16 12/29/16 12/29/16 17:03 23:15 23:22 WBC RBC Hgb 7.3 L Hct 22.3 L MCV MCH MCHC RDW Plt Count Lymph % (Auto) [place] % (Auto) Lymph # [place] # Baso # Seg Neutrophils % Seg Neuts % (Manual) Lymphocytes % (Manual) Monocytes % (Manual) Eosinophils % (Manual) Basophils % (Manual) Nucleated RBC % Seg Neutrophils # Seg Neutrophils # Man Lymphocytes # (Manual) Monocytes # (Manual) Eosinophils # (Manual) Basophils # (Manual) PT INR Fibrinogen dRVVT Confirm Interp Factor V Activity POC ABG pH POC ABG pCO2 POC ABG pO2 ABG pO2 ABG HCO3 ABG Base Excess ABG Hemoglobin Oxyhemoglobin Sodium Potassium Chloride Carbon Dioxide BUN Creatinine Glucose POC Glucose 139 H 120 H Lactic Acid Calcium Phosphorus Magnesium Direct Bilirubin AST ALT Alkaline Phosphatase Lactate Dehydrogenase Troponin T C-Reactive Protein Total Protein Albumin Prealbumin Triglycerides Cholesterol LDL Cholesterol Direct HDL Cholesterol Urine pH Urine WBC (Auto) Urine Creatinine Urine Total Protein Fluid Total Protein Vancomycin Trough Rheumatoid Factor Complement C4 Miscellaneous Test Crossmatch 12/30/16 12/30/16 12/30/16 04:20 04:20 05:43 WBC 15.6 H RBC 2.81 L Hgb 8.0 L Hct 24.0 L MCV MCH MCHC RDW 16.9 H Plt Count Lymph % (Auto) [place] % (Auto) Lymph # [place] # 1.0 H Baso # Seg Neutrophils % 76.2 H Seg Neuts % (Manual) Lymphocytes % (Manual) Monocytes % (Manual) Eosinophils % (Manual) Basophils % (Manual) Nucleated RBC % Seg Neutrophils # 11.9 H Seg Neutrophils # Man Lymphocytes # (Manual) Monocytes # (Manual) Eosinophils # (Manual) Basophils # (Manual) PT INR Fibrinogen dRVVT Confirm Interp Factor V Activity POC ABG pH POC ABG pCO2 POC ABG pO2 ABG pO2 ABG HCO3 ABG Base Excess ABG Hemoglobin Oxyhemoglobin Sodium Potassium Chloride Carbon Dioxide BUN 87 H Creatinine 1.8 H Glucose 119 H POC Glucose 115 H Lactic Acid Calcium Phosphorus Magnesium Direct Bilirubin AST ALT Alkaline Phosphatase Lactate Dehydrogenase Troponin T C-Reactive Protein Total Protein Albumin Prealbumin Triglycerides Cholesterol LDL Cholesterol Direct HDL Cholesterol Urine pH Urine WBC (Auto) Urine Creatinine Urine Total Protein Fluid Total Protein Vancomycin Trough Rheumatoid Factor Complement C4 Miscellaneous Test Crossmatch 12/30/16 12/30/16 12/31/16 17:27 23:21 04:00 WBC RBC Hgb Hct MCV MCH MCHC RDW Plt Count Lymph % (Auto) [place] % (Auto) Lymph # [place] # Baso # Seg Neutrophils % Seg Neuts % (Manual) Lymphocytes % (Manual) Monocytes % (Manual) Eosinophils % (Manual) Basophils % (Manual) Nucleated RBC % Seg Neutrophils # Seg Neutrophils # Man Lymphocytes # (Manual) Monocytes # (Manual) Eosinophils # (Manual) Basophils # (Manual) PT INR Fibrinogen dRVVT Confirm Interp Factor V Activity POC ABG pH POC ABG pCO2 POC ABG pO2 ABG pO2 ABG HCO3 ABG Base Excess ABG Hemoglobin Oxyhemoglobin Sodium Potassium Chloride Carbon Dioxide BUN 59 H Creatinine Glucose 298 H POC Glucose 144 H 125 H Lactic Acid Calcium Phosphorus Magnesium Direct Bilirubin AST ALT Alkaline Phosphatase Lactate Dehydrogenase Troponin T C-Reactive Protein Total Protein Albumin Prealbumin Triglycerides Cholesterol LDL Cholesterol Direct HDL Cholesterol Urine pH Urine WBC (Auto) Urine Creatinine Urine Total Protein Fluid Total Protein Vancomycin Trough Rheumatoid Factor Complement C4 Miscellaneous Test Crossmatch 12/31/16 12/31/16 12/31/16 05:11 12:18 18:17 WBC RBC Hgb Hct MCV MCH MCHC RDW Plt Count Lymph % (Auto) [place] % (Auto) Lymph # [place] # Baso # Seg Neutrophils % Seg Neuts % (Manual) Lymphocytes % (Manual) Monocytes % (Manual) Eosinophils % (Manual) Basophils % (Manual) Nucleated RBC % Seg Neutrophils # Seg Neutrophils # Man Lymphocytes # (Manual) Monocytes # (Manual) Eosinophils # (Manual) Basophils # (Manual) PT INR Fibrinogen dRVVT Confirm Interp Factor V Activity POC ABG pH POC ABG pCO2 POC ABG pO2 ABG pO2 ABG HCO3 ABG Base Excess ABG Hemoglobin Oxyhemoglobin Sodium Potassium Chloride Carbon Dioxide BUN Creatinine Glucose POC Glucose 167 H 125 H 133 H Lactic Acid Calcium Phosphorus Magnesium Direct Bilirubin AST ALT Alkaline Phosphatase Lactate Dehydrogenase Troponin T C-Reactive Protein Total Protein Albumin Prealbumin Triglycerides Cholesterol LDL Cholesterol Direct HDL Cholesterol Urine pH Urine WBC (Auto) Urine Creatinine Urine Total Protein Fluid Total Protein Vancomycin Trough Rheumatoid Factor Complement C4 Miscellaneous Test Crossmatch 12/31/16 01/01/17 01/01/17 23:55 05:00 05:12 WBC RBC Hgb Hct MCV MCH MCHC RDW Plt Count Lymph % (Auto) [place] % (Auto) Lymph # [place] # Baso # Seg Neutrophils % Seg Neuts % (Manual) Lymphocytes % (Manual) Monocytes % (Manual) Eosinophils % (Manual) Basophils % (Manual) Nucleated RBC % Seg Neutrophils # Seg Neutrophils # Man Lymphocytes # (Manual) Monocytes # (Manual) Eosinophils # (Manual) Basophils # (Manual) PT INR Fibrinogen dRVVT Confirm Interp Factor V Activity POC ABG pH POC ABG pCO2 POC ABG pO2 ABG pO2 ABG HCO3 ABG Base Excess ABG Hemoglobin Oxyhemoglobin Sodium Potassium Chloride Carbon Dioxide BUN 76 H Creatinine 1.5 H Glucose 109 H POC Glucose 129 H 129 H Lactic Acid Calcium Phosphorus Magnesium Direct Bilirubin AST ALT Alkaline Phosphatase 536 H Lactate Dehydrogenase Troponin T C-Reactive Protein Total Protein Albumin 1.5 L Prealbumin Triglycerides Cholesterol LDL Cholesterol Direct HDL Cholesterol Urine pH Urine WBC (Auto) Urine Creatinine Urine Total Protein Fluid Total Protein Vancomycin Trough Rheumatoid Factor Complement C4 Miscellaneous Test Crossmatch 01/01/17 01/01/17 01/01/17 12:25 17:01 23:32 WBC RBC Hgb Hct MCV MCH MCHC RDW Plt Count Lymph % (Auto) [place] % (Auto) Lymph # [place] # Baso # Seg Neutrophils % Seg Neuts % (Manual) Lymphocytes % (Manual) Monocytes % (Manual) Eosinophils % (Manual) Basophils % (Manual) Nucleated RBC % Seg Neutrophils # Seg Neutrophils # Man Lymphocytes # (Manual) Monocytes # (Manual) Eosinophils # (Manual) Basophils # (Manual) PT INR Fibrinogen dRVVT Confirm Interp Factor V Activity POC ABG pH POC ABG pCO2 POC ABG pO2 ABG pO2 ABG HCO3 ABG Base Excess ABG Hemoglobin Oxyhemoglobin Sodium Potassium Chloride Carbon Dioxide BUN Creatinine Glucose POC Glucose 140 H 142 H 112 H Lactic Acid Calcium Phosphorus Magnesium Direct Bilirubin AST ALT Alkaline Phosphatase Lactate Dehydrogenase Troponin T C-Reactive Protein Total Protein Albumin Prealbumin Triglycerides Cholesterol LDL Cholesterol Direct HDL Cholesterol Urine pH Urine WBC (Auto) Urine Creatinine Urine Total Protein Fluid Total Protein Vancomycin Trough Rheumatoid Factor Complement C4 Miscellaneous Test Crossmatch 01/02/17 01/02/17 01/02/17 04:56 06:00 11:37 WBC RBC Hgb Hct MCV MCH MCHC RDW Plt Count Lymph % (Auto) [place] % (Auto) Lymph # [place] # Baso # Seg Neutrophils % Seg Neuts % (Manual) Lymphocytes % (Manual) Monocytes % (Manual) Eosinophils % (Manual) Basophils % (Manual) Nucleated RBC % Seg Neutrophils # Seg Neutrophils # Man Lymphocytes # (Manual) Monocytes # (Manual) Eosinophils # (Manual) Basophils # (Manual) PT INR Fibrinogen dRVVT Confirm Interp Factor V Activity POC ABG pH POC ABG pCO2 POC ABG pO2 ABG pO2 ABG HCO3 ABG Base Excess ABG Hemoglobin Oxyhemoglobin Sodium Potassium Chloride Carbon Dioxide BUN 88 H Creatinine 1.7 H Glucose 113 H POC Glucose 136 H 200 H Lactic Acid Calcium Phosphorus Magnesium Direct Bilirubin AST ALT Alkaline Phosphatase Lactate Dehydrogenase Troponin T C-Reactive Protein Total Protein Albumin Prealbumin Triglycerides Cholesterol LDL Cholesterol Direct HDL Cholesterol Urine pH Urine WBC (Auto) Urine Creatinine Urine Total Protein Fluid Total Protein Vancomycin Trough Rheumatoid Factor Complement C4 Miscellaneous Test Crossmatch 01/02/17 01/02/17 01/03/17 17:42 22:52 04:54 WBC RBC Hgb Hct MCV MCH MCHC RDW Plt Count Lymph % (Auto) [place] % (Auto) Lymph # [place] # Baso # Seg Neutrophils % Seg Neuts % (Manual) Lymphocytes % (Manual) Monocytes % (Manual) Eosinophils % (Manual) Basophils % (Manual) Nucleated RBC % Seg Neutrophils # Seg Neutrophils # Man Lymphocytes # (Manual) Monocytes # (Manual) Eosinophils # (Manual) Basophils # (Manual) PT INR Fibrinogen dRVVT Confirm Interp Factor V Activity POC ABG pH POC ABG pCO2 POC ABG pO2 ABG pO2 ABG HCO3 ABG Base Excess ABG Hemoglobin Oxyhemoglobin Sodium Potassium Chloride Carbon Dioxide BUN Creatinine Glucose POC Glucose 112 H 133 H 111 H Lactic Acid Calcium Phosphorus Magnesium Direct Bilirubin AST ALT Alkaline Phosphatase Lactate Dehydrogenase Troponin T C-Reactive Protein Total Protein Albumin Prealbumin Triglycerides Cholesterol LDL Cholesterol Direct HDL Cholesterol Urine pH Urine WBC (Auto) Urine Creatinine Urine Total Protein Fluid Total Protein Vancomycin Trough Rheumatoid Factor Complement C4 Miscellaneous Test Crossmatch 01/03/17 01/03/17 01/03/17 05:00 05:00 14:02 WBC 11.2 H RBC 2.56 L Hgb 7.2 L Hct 22.3 L MCV MCH MCHC RDW 17.3 H Plt Count Lymph % (Auto) [place] % (Auto) 10.0 H Lymph # [place] # 1.1 H Baso # Seg Neutrophils % 70.5 H Seg Neuts % (Manual) Lymphocytes % (Manual) Monocytes % (Manual) Eosinophils % (Manual) Basophils % (Manual) Nucleated RBC % Seg Neutrophils # 7.9 H Seg Neutrophils # Man Lymphocytes # (Manual) Monocytes # (Manual) Eosinophils # (Manual) Basophils # (Manual) PT INR Fibrinogen dRVVT Confirm Interp Factor V Activity POC ABG pH POC ABG pCO2 POC ABG pO2 ABG pO2 ABG HCO3 ABG Base Excess ABG Hemoglobin Oxyhemoglobin Sodium Potassium Chloride Carbon Dioxide BUN 60 H Creatinine 1.3 H Glucose 110 H POC Glucose 119 H Lactic Acid Calcium Phosphorus Magnesium Direct Bilirubin AST ALT Alkaline Phosphatase Lactate Dehydrogenase Troponin T C-Reactive Protein Total Protein Albumin Prealbumin Triglycerides Cholesterol LDL Cholesterol Direct HDL Cholesterol Urine pH Urine WBC (Auto) Urine Creatinine Urine Total Protein Fluid Total Protein Vancomycin Trough Rheumatoid Factor Complement C4 Miscellaneous Test Crossmatch 01/03/17 01/03/17 01/04/17 18:13 23:40 05:57 WBC RBC Hgb Hct MCV MCH MCHC RDW Plt Count Lymph % (Auto) [place] % (Auto) Lymph # [place] # Baso # Seg Neutrophils % Seg Neuts % (Manual) Lymphocytes % (Manual) Monocytes % (Manual) Eosinophils % (Manual) Basophils % (Manual) Nucleated RBC % Seg Neutrophils # Seg Neutrophils # Man Lymphocytes # (Manual) Monocytes # (Manual) Eosinophils # (Manual) Basophils # (Manual) PT INR Fibrinogen dRVVT Confirm Interp Factor V Activity POC ABG pH POC ABG pCO2 POC ABG pO2 ABG pO2 ABG HCO3 ABG Base Excess ABG Hemoglobin Oxyhemoglobin Sodium Potassium Chloride Carbon Dioxide BUN Creatinine Glucose POC Glucose 107 H 129 H 111 H Lactic Acid Calcium Phosphorus Magnesium Direct Bilirubin AST ALT Alkaline Phosphatase Lactate Dehydrogenase Troponin T C-Reactive Protein Total Protein Albumin Prealbumin Triglycerides Cholesterol LDL Cholesterol Direct HDL Cholesterol Urine pH Urine WBC (Auto) Urine Creatinine Urine Total Protein Fluid Total Protein Vancomycin Trough Rheumatoid Factor Complement C4 Miscellaneous Test Crossmatch 01/04/17 01/04/17 01/04/17 12:46 15:27 17:11 WBC RBC Hgb Hct MCV MCH MCHC RDW Plt Count Lymph % (Auto) [place] % (Auto) Lymph # [place] # Baso # Seg Neutrophils % Seg Neuts % (Manual) Lymphocytes % (Manual) Monocytes % (Manual) Eosinophils % (Manual) Basophils % (Manual) Nucleated RBC % Seg Neutrophils # Seg Neutrophils # Man Lymphocytes # (Manual) Monocytes # (Manual) Eosinophils # (Manual) Basophils # (Manual) PT INR Fibrinogen dRVVT Confirm Interp Factor V Activity POC ABG pH POC ABG pCO2 POC ABG pO2 ABG pO2 ABG HCO3 ABG Base Excess ABG Hemoglobin Oxyhemoglobin Sodium Potassium Chloride Carbon Dioxide BUN 43 H Creatinine Glucose 124 H POC Glucose 159 H 125 H Lactic Acid Calcium 8.0 L Phosphorus 2.10 L Magnesium Direct Bilirubin AST ALT Alkaline Phosphatase Lactate Dehydrogenase Troponin T C-Reactive Protein Total Protein Albumin Prealbumin Triglycerides Cholesterol LDL Cholesterol Direct HDL Cholesterol Urine pH Urine WBC (Auto) Urine Creatinine Urine Total Protein Fluid Total Protein Vancomycin Trough Rheumatoid Factor Complement C4 Miscellaneous Test Crossmatch 01/04/17 01/05/17 01/05/17 23:31 04:00 05:46 WBC RBC Hgb Hct MCV MCH MCHC RDW Plt Count Lymph % (Auto) [place] % (Auto) Lymph # [place] # Baso # Seg Neutrophils % Seg Neuts % (Manual) Lymphocytes % (Manual) Monocytes % (Manual) Eosinophils % (Manual) Basophils % (Manual) Nucleated RBC % Seg Neutrophils # Seg Neutrophils # Man Lymphocytes # (Manual) Monocytes # (Manual) Eosinophils # (Manual) Basophils # (Manual) PT INR Fibrinogen dRVVT Confirm Interp Factor V Activity POC ABG pH POC ABG pCO2 POC ABG pO2 ABG pO2 ABG HCO3 ABG Base Excess ABG Hemoglobin Oxyhemoglobin Sodium Potassium Chloride Carbon Dioxide BUN 52 H Creatinine 1.3 H Glucose 113 H POC Glucose 123 H 118 H Lactic Acid Calcium Phosphorus 2.40 L Magnesium Direct Bilirubin AST ALT Alkaline Phosphatase Lactate Dehydrogenase Troponin T C-Reactive Protein Total Protein Albumin Prealbumin Triglycerides Cholesterol LDL Cholesterol Direct HDL Cholesterol Urine pH Urine WBC (Auto) Urine Creatinine Urine Total Protein Fluid Total Protein Vancomycin Trough Rheumatoid Factor Complement C4 Miscellaneous Test Crossmatch 01/05/17 01/05/17 01/05/17 11:41 17:48 23:27 WBC RBC Hgb Hct MCV MCH MCHC RDW Plt Count Lymph % (Auto) [place] % (Auto) Lymph # [place] # Baso # Seg Neutrophils % Seg Neuts % (Manual) Lymphocytes % (Manual) Monocytes % (Manual) Eosinophils % (Manual) Basophils % (Manual) Nucleated RBC % Seg Neutrophils # Seg Neutrophils # Man Lymphocytes # (Manual) Monocytes # (Manual) Eosinophils # (Manual) Basophils # (Manual) PT INR Fibrinogen dRVVT Confirm Interp Factor V Activity POC ABG pH POC ABG pCO2 POC ABG pO2 ABG pO2 ABG HCO3 ABG Base Excess ABG Hemoglobin Oxyhemoglobin Sodium Potassium Chloride Carbon Dioxide BUN Creatinine Glucose POC Glucose 163 H 142 H 155 H Lactic Acid Calcium Phosphorus Magnesium Direct Bilirubin AST ALT Alkaline Phosphatase Lactate Dehydrogenase Troponin T C-Reactive Protein Total Protein Albumin Prealbumin Triglycerides Cholesterol LDL Cholesterol Direct HDL Cholesterol Urine pH Urine WBC (Auto) Urine Creatinine Urine Total Protein Fluid Total Protein Vancomycin Trough Rheumatoid Factor Complement C4 Miscellaneous Test Crossmatch 01/06/17 01/06/17 01/06/17 05:20 07:35 11:18 WBC RBC Hgb Hct MCV MCH MCHC RDW Plt Count Lymph % (Auto) [place] % (Auto) Lymph # [place] # Baso # Seg Neutrophils % Seg Neuts % (Manual) Lymphocytes % (Manual) Monocytes % (Manual) Eosinophils % (Manual) Basophils % (Manual) Nucleated RBC % Seg Neutrophils # Seg Neutrophils # Man Lymphocytes # (Manual) Monocytes # (Manual) Eosinophils # (Manual) Basophils # (Manual) PT INR Fibrinogen dRVVT Confirm Interp Factor V Activity POC ABG pH POC ABG pCO2 POC ABG pO2 ABG pO2 ABG HCO3 ABG Base Excess ABG Hemoglobin Oxyhemoglobin Sodium Potassium Chloride Carbon Dioxide BUN 74 H Creatinine 1.6 H Glucose 135 H POC Glucose 108 H 149 H Lactic Acid Calcium Phosphorus Magnesium Direct Bilirubin AST ALT Alkaline Phosphatase Lactate Dehydrogenase Troponin T C-Reactive Protein Total Protein Albumin Prealbumin Triglycerides Cholesterol LDL Cholesterol Direct HDL Cholesterol Urine pH Urine WBC (Auto) Urine Creatinine Urine Total Protein Fluid Total Protein Vancomycin Trough Rheumatoid Factor Complement C4 Miscellaneous Test Crossmatch 01/06/17 01/07/17 01/07/17 17:17 00:23 05:31 WBC RBC Hgb Hct MCV MCH MCHC RDW Plt Count Lymph % (Auto) [place] % (Auto) Lymph # [place] # Baso # Seg Neutrophils % Seg Neuts % (Manual) Lymphocytes % (Manual) Monocytes % (Manual) Eosinophils % (Manual) Basophils % (Manual) Nucleated RBC % Seg Neutrophils # Seg Neutrophils # Man Lymphocytes # (Manual) Monocytes # (Manual) Eosinophils # (Manual) Basophils # (Manual) PT INR Fibrinogen dRVVT Confirm Interp Factor V Activity POC ABG pH POC ABG pCO2 POC ABG pO2 ABG pO2 ABG HCO3 ABG Base Excess ABG Hemoglobin Oxyhemoglobin Sodium Potassium Chloride Carbon Dioxide BUN Creatinine Glucose POC Glucose 146 H 165 H 153 H Lactic Acid Calcium Phosphorus Magnesium Direct Bilirubin AST ALT Alkaline Phosphatase Lactate Dehydrogenase Troponin T C-Reactive Protein Total Protein Albumin Prealbumin Triglycerides Cholesterol LDL Cholesterol Direct HDL Cholesterol Urine pH Urine WBC (Auto) Urine Creatinine Urine Total Protein Fluid Total Protein Vancomycin Trough Rheumatoid Factor Complement C4 Miscellaneous Test Crossmatch 01/07/17 01/07/17 01/07/17 06:00 11:39 17:11 WBC RBC Hgb Hct MCV MCH MCHC RDW Plt Count Lymph % (Auto) [place] % (Auto) Lymph # [place] # Baso # Seg Neutrophils % Seg Neuts % (Manual) Lymphocytes % (Manual) Monocytes % (Manual) Eosinophils % (Manual) Basophils % (Manual) Nucleated RBC % Seg Neutrophils # Seg Neutrophils # Man Lymphocytes # (Manual) Monocytes # (Manual) Eosinophils # (Manual) Basophils # (Manual) PT INR Fibrinogen dRVVT Confirm Interp Factor V Activity POC ABG pH POC ABG pCO2 POC ABG pO2 ABG pO2 ABG HCO3 ABG Base Excess ABG Hemoglobin Oxyhemoglobin Sodium Potassium Chloride Carbon Dioxide BUN 42 H Creatinine Glucose 175 H POC Glucose 163 H 163 H Lactic Acid Calcium Phosphorus 2.40 L D Magnesium Direct Bilirubin AST ALT Alkaline Phosphatase Lactate Dehydrogenase Troponin T C-Reactive Protein Total Protein Albumin Prealbumin Triglycerides Cholesterol LDL Cholesterol Direct HDL Cholesterol Urine pH Urine WBC (Auto) Urine Creatinine Urine Total Protein Fluid Total Protein Vancomycin Trough Rheumatoid Factor Complement C4 Miscellaneous Test Crossmatch 01/07/17 01/08/17 01/08/17 23:40 05:00 05:00 WBC 27.4 H RBC 2.27 L Hgb 6.1 L Hct 20.4 L MCV MCH 27 L MCHC RDW 17.8 H Plt Count Lymph % (Auto) [place] % (Auto) Lymph # [place] # Baso # Seg Neutrophils % Seg Neuts % (Manual) Lymphocytes % (Manual) Monocytes % (Manual) Eosinophils % (Manual) Basophils % (Manual) Nucleated RBC % Seg Neutrophils # Seg Neutrophils # Man Lymphocytes # (Manual) Monocytes # (Manual) Eosinophils # (Manual) Basophils # (Manual) PT INR Fibrinogen dRVVT Confirm Interp Factor V Activity POC ABG pH POC ABG pCO2 POC ABG pO2 ABG pO2 ABG HCO3 ABG Base Excess ABG Hemoglobin Oxyhemoglobin Sodium Potassium Chloride Carbon Dioxide 16 L D BUN 62 H Creatinine 1.6 H D Glucose 103 H POC Glucose 135 H Lactic Acid Calcium Phosphorus Magnesium Direct Bilirubin AST ALT Alkaline Phosphatase Lactate Dehydrogenase Troponin T C-Reactive Protein Total Protein Albumin Prealbumin Triglycerides Cholesterol LDL Cholesterol Direct HDL Cholesterol Urine pH Urine WBC (Auto) Urine Creatinine Urine Total Protein Fluid Total Protein Vancomycin Trough Rheumatoid Factor Complement C4 Miscellaneous Test Crossmatch 01/08/17 01/08/17 01/08/17 05:25 10:37 10:37 WBC RBC Hgb Hct MCV MCH MCHC RDW Plt Count Lymph % (Auto) [place] % (Auto) Lymph # [place] # Baso # Seg Neutrophils % Seg Neuts % (Manual) Lymphocytes % (Manual) Monocytes % (Manual) Eosinophils % (Manual) Basophils % (Manual) Nucleated RBC % Seg Neutrophils # Seg Neutrophils # Man Lymphocytes # (Manual) Monocytes # (Manual) Eosinophils # (Manual) Basophils # (Manual) PT INR Fibrinogen dRVVT Confirm Interp Factor V Activity POC ABG pH POC ABG pCO2 POC ABG pO2 ABG pO2 ABG HCO3 ABG Base Excess ABG Hemoglobin Oxyhemoglobin Sodium Potassium Chloride Carbon Dioxide BUN Creatinine Glucose POC Glucose 106 H Lactic Acid Calcium Phosphorus Magnesium Direct Bilirubin AST ALT Alkaline Phosphatase Lactate Dehydrogenase Troponin T C-Reactive Protein 24.40 H Total Protein Albumin Prealbumin Triglycerides Cholesterol LDL Cholesterol Direct HDL Cholesterol Urine pH Urine WBC (Auto) Urine Creatinine Urine Total Protein Fluid Total Protein Vancomycin Trough Rheumatoid Factor Complement C4 Miscellaneous Test Crossmatch See Detail 01/08/17 01/08/17 01/08/17 10:37 11:33 15:15 WBC RBC Hgb Hct MCV MCH MCHC RDW Plt Count Lymph % (Auto) [place] % (Auto) Lymph # [place] # Baso # Seg Neutrophils % Seg Neuts % (Manual) Lymphocytes % (Manual) Monocytes % (Manual) Eosinophils % (Manual) Basophils % (Manual) Nucleated RBC % Seg Neutrophils # Seg Neutrophils # Man Lymphocytes # (Manual) Monocytes # (Manual) Eosinophils # (Manual) Basophils # (Manual) PT INR Fibrinogen dRVVT Confirm Interp Factor V Activity POC ABG pH POC ABG pCO2 POC ABG pO2 ABG pO2 ABG HCO3 ABG Base Excess ABG Hemoglobin Oxyhemoglobin Sodium Potassium Chloride Carbon Dioxide BUN Creatinine Glucose POC Glucose 157 H Lactic Acid 9.70 H* 9.10 H* Calcium Phosphorus Magnesium Direct Bilirubin AST ALT Alkaline Phosphatase Lactate Dehydrogenase Troponin T C-Reactive Protein Total Protein Albumin Prealbumin Triglycerides Cholesterol LDL Cholesterol Direct HDL Cholesterol Urine pH Urine WBC (Auto) Urine Creatinine Urine Total Protein Fluid Total Protein Vancomycin Trough Rheumatoid Factor Complement C4 Miscellaneous Test Crossmatch 01/08/17 01/08/17 01/09/17 17:19 23:12 04:40 WBC RBC Hgb Hct MCV MCH MCHC RDW Plt Count Lymph % (Auto) [place] % (Auto) Lymph # [place] # Baso # Seg Neutrophils % Seg Neuts % (Manual) Lymphocytes % (Manual) Monocytes % (Manual) Eosinophils % (Manual) Basophils % (Manual) Nucleated RBC % Seg Neutrophils # Seg Neutrophils # Man Lymphocytes # (Manual) Monocytes # (Manual) Eosinophils # (Manual) Basophils # (Manual) PT INR Fibrinogen dRVVT Confirm Interp Factor V Activity POC ABG pH POC ABG pCO2 POC ABG pO2 ABG pO2 ABG HCO3 ABG Base Excess ABG Hemoglobin Oxyhemoglobin Sodium 147 H Potassium Chloride Carbon Dioxide BUN 82 H Creatinine 1.8 H Glucose 137 H POC Glucose 164 H 157 H Lactic Acid Calcium Phosphorus Magnesium Direct Bilirubin AST ALT Alkaline Phosphatase Lactate Dehydrogenase Troponin T C-Reactive Protein Total Protein Albumin Prealbumin Triglycerides Cholesterol LDL Cholesterol Direct HDL Cholesterol Urine pH Urine WBC (Auto) Urine Creatinine Urine Total Protein Fluid Total Protein Vancomycin Trough Rheumatoid Factor Complement C4 Miscellaneous Test Crossmatch 01/09/17 01/09/17 01/09/17 05:42 08:22 10:57 WBC RBC Hgb Hct MCV MCH MCHC RDW Plt Count Lymph % (Auto) [place] % (Auto) Lymph # [place] # Baso # Seg Neutrophils % Seg Neuts % (Manual) Lymphocytes % (Manual) Monocytes % (Manual) Eosinophils % (Manual) Basophils % (Manual) Nucleated RBC % Seg Neutrophils # Seg Neutrophils # Man Lymphocytes # (Manual) Monocytes # (Manual) Eosinophils # (Manual) Basophils # (Manual) PT INR Fibrinogen dRVVT Confirm Interp Factor V Activity POC ABG pH POC ABG pCO2 POC ABG pO2 ABG pO2 ABG HCO3 ABG Base Excess ABG Hemoglobin Oxyhemoglobin Sodium Potassium Chloride Carbon Dioxide BUN Creatinine Glucose POC Glucose 156 H 122 H Lactic Acid 2.30 H* Calcium Phosphorus Magnesium Direct Bilirubin AST ALT Alkaline Phosphatase Lactate Dehydrogenase Troponin T C-Reactive Protein Total Protein Albumin Prealbumin Triglycerides Cholesterol LDL Cholesterol Direct HDL Cholesterol Urine pH Urine WBC (Auto) Urine Creatinine Urine Total Protein Fluid Total Protein Vancomycin Trough Rheumatoid Factor Complement C4 Miscellaneous Test Crossmatch 01/09/17 01/09/17 01/09/17 13:30 17:14 18:45 WBC RBC Hgb Hct MCV MCH MCHC RDW Plt Count Lymph % (Auto) [place] % (Auto) Lymph # [place] # Baso # Seg Neutrophils % Seg Neuts % (Manual) Lymphocytes % (Manual) Monocytes % (Manual) Eosinophils % (Manual) Basophils % (Manual) Nucleated RBC % Seg Neutrophils # Seg Neutrophils # Man Lymphocytes # (Manual) Monocytes # (Manual) Eosinophils # (Manual) Basophils # (Manual) PT INR Fibrinogen dRVVT Confirm Interp Factor V Activity POC ABG pH POC ABG pCO2 POC ABG pO2 ABG pO2 ABG HCO3 ABG Base Excess ABG Hemoglobin Oxyhemoglobin Sodium Potassium Chloride Carbon Dioxide BUN Creatinine Glucose POC Glucose 127 H Lactic Acid Calcium Phosphorus Magnesium Direct Bilirubin AST ALT Alkaline Phosphatase Lactate Dehydrogenase Troponin T C-Reactive Protein 24.70 H Total Protein Albumin Prealbumin Triglycerides Cholesterol LDL Cholesterol Direct HDL Cholesterol Urine pH Urine WBC (Auto) Urine Creatinine Urine Total Protein Fluid Total Protein Vancomycin Trough Rheumatoid Factor Complement C4 Miscellaneous Test Flexitest 1 H Crossmatch 01/10/17 01/10/17 01/10/17 01:21 04:00 04:00 WBC 18.1 H RBC 3.22 L Hgb 8.8 L Hct 27.0 L D MCV MCH 27 L MCHC RDW 17.0 H Plt Count Lymph % (Auto) [place] % (Auto) Lymph # [place] # Baso # Seg Neutrophils % Seg Neuts % (Manual) Lymphocytes % (Manual) Monocytes % (Manual) Eosinophils % (Manual) Basophils % (Manual) Nucleated RBC % Seg Neutrophils # Seg Neutrophils # Man Lymphocytes # (Manual) Monocytes # (Manual) Eosinophils # (Manual) Basophils # (Manual) PT INR Fibrinogen dRVVT Confirm Interp Factor V Activity POC ABG pH POC ABG pCO2 POC ABG pO2 ABG pO2 ABG HCO3 ABG Base Excess ABG Hemoglobin Oxyhemoglobin Sodium Potassium Chloride Carbon Dioxide BUN 59 H Creatinine 1.3 H Glucose 122 H POC Glucose 160 H Lactic Acid Calcium Phosphorus Magnesium Direct Bilirubin AST ALT Alkaline Phosphatase Lactate Dehydrogenase Troponin T C-Reactive Protein Total Protein Albumin Prealbumin Triglycerides Cholesterol LDL Cholesterol Direct HDL Cholesterol Urine pH Urine WBC (Auto) Urine Creatinine Urine Total Protein Fluid Total Protein Vancomycin Trough Rheumatoid Factor Complement C4 Miscellaneous Test Crossmatch 01/10/17 01/10/17 01/10/17 05:36 12:14 17:55 WBC RBC Hgb Hct MCV MCH MCHC RDW Plt Count Lymph % (Auto) [place] % (Auto) Lymph # [place] # Baso # Seg Neutrophils % Seg Neuts % (Manual) Lymphocytes % (Manual) Monocytes % (Manual) Eosinophils % (Manual) Basophils % (Manual) Nucleated RBC % Seg Neutrophils # Seg Neutrophils # Man Lymphocytes # (Manual) Monocytes # (Manual) Eosinophils # (Manual) Basophils # (Manual) PT INR Fibrinogen dRVVT Confirm Interp Factor V Activity POC ABG pH POC ABG pCO2 POC ABG pO2 ABG pO2 ABG HCO3 ABG Base Excess ABG Hemoglobin Oxyhemoglobin Sodium Potassium Chloride Carbon Dioxide BUN Creatinine Glucose POC Glucose 163 H 120 H 144 H Lactic Acid Calcium Phosphorus Magnesium Direct Bilirubin AST ALT Alkaline Phosphatase Lactate Dehydrogenase Troponin T C-Reactive Protein Total Protein Albumin Prealbumin Triglycerides Cholesterol LDL Cholesterol Direct HDL Cholesterol Urine pH Urine WBC (Auto) Urine Creatinine Urine Total Protein Fluid Total Protein Vancomycin Trough Rheumatoid Factor Complement C4 Miscellaneous Test Crossmatch 01/11/17 01/11/17 01/11/17 00:09 04:00 04:00 WBC 15.8 H RBC 3.04 L Hgb 8.2 L Hct 25.5 L MCV MCH 27 L MCHC RDW 17.3 H Plt Count Lymph % (Auto) [place] % (Auto) Lymph # [place] # Baso # Seg Neutrophils % Seg Neuts % (Manual) Lymphocytes % (Manual) Monocytes % (Manual) Eosinophils % (Manual) Basophils % (Manual) Nucleated RBC % Seg Neutrophils # Seg Neutrophils # Man Lymphocytes # (Manual) Monocytes # (Manual) Eosinophils # (Manual) Basophils # (Manual) PT INR Fibrinogen dRVVT Confirm Interp Factor V Activity POC ABG pH POC ABG pCO2 POC ABG pO2 ABG pO2 ABG HCO3 ABG Base Excess ABG Hemoglobin Oxyhemoglobin Sodium Potassium Chloride Carbon Dioxide BUN 78 H Creatinine 1.6 H Glucose 109 H POC Glucose 122 H Lactic Acid Calcium Phosphorus Magnesium Direct Bilirubin AST ALT Alkaline Phosphatase Lactate Dehydrogenase Troponin T C-Reactive Protein Total Protein Albumin Prealbumin Triglycerides Cholesterol LDL Cholesterol Direct HDL Cholesterol Urine pH Urine WBC (Auto) Urine Creatinine Urine Total Protein Fluid Total Protein Vancomycin Trough Rheumatoid Factor Complement C4 Miscellaneous Test Crossmatch 01/11/17 01/11/17 01/11/17 12:46 18:23 23:42 WBC RBC Hgb Hct MCV MCH MCHC RDW Plt Count Lymph % (Auto) [place] % (Auto) Lymph # [place] # Baso # Seg Neutrophils % Seg Neuts % (Manual) Lymphocytes % (Manual) Monocytes % (Manual) Eosinophils % (Manual) Basophils % (Manual) Nucleated RBC % Seg Neutrophils # Seg Neutrophils # Man Lymphocytes # (Manual) Monocytes # (Manual) Eosinophils # (Manual) Basophils # (Manual) PT INR Fibrinogen dRVVT Confirm Interp Factor V Activity POC ABG pH POC ABG pCO2 POC ABG pO2 ABG pO2 ABG HCO3 ABG Base Excess ABG Hemoglobin Oxyhemoglobin Sodium Potassium Chloride Carbon Dioxide BUN Creatinine Glucose POC Glucose 148 H 125 H 124 H Lactic Acid Calcium Phosphorus Magnesium Direct Bilirubin AST ALT Alkaline Phosphatase Lactate Dehydrogenase Troponin T C-Reactive Protein Total Protein Albumin Prealbumin Triglycerides Cholesterol LDL Cholesterol Direct HDL Cholesterol Urine pH Urine WBC (Auto) Urine Creatinine Urine Total Protein Fluid Total Protein Vancomycin Trough Rheumatoid Factor Complement C4 Miscellaneous Test Crossmatch 01/12/17 01/12/17 01/12/17 04:30 04:30 05:47 WBC 15.8 H RBC 3.31 L Hgb 8.9 L Hct 27.9 L MCV MCH 27 L MCHC RDW 17.4 H Plt Count Lymph % (Auto) [place] % (Auto) Lymph # [place] # Baso # Seg Neutrophils % Seg Neuts % (Manual) Lymphocytes % (Manual) Monocytes % (Manual) Eosinophils % (Manual) Basophils % (Manual) Nucleated RBC % Seg Neutrophils # Seg Neutrophils # Man Lymphocytes # (Manual) Monocytes # (Manual) Eosinophils # (Manual) Basophils # (Manual) PT INR Fibrinogen dRVVT Confirm Interp Factor V Activity POC ABG pH POC ABG pCO2 POC ABG pO2 ABG pO2 ABG HCO3 ABG Base Excess ABG Hemoglobin Oxyhemoglobin Sodium Potassium Chloride Carbon Dioxide BUN 57 H Creatinine Glucose 121 H POC Glucose 110 H Lactic Acid Calcium Phosphorus 2.10 L Magnesium Direct Bilirubin AST ALT Alkaline Phosphatase Lactate Dehydrogenase Troponin T C-Reactive Protein Total Protein Albumin Prealbumin Triglycerides Cholesterol LDL Cholesterol Direct HDL Cholesterol Urine pH Urine WBC (Auto) Urine Creatinine Urine Total Protein Fluid Total Protein Vancomycin Trough Rheumatoid Factor Complement C4 Miscellaneous Test Crossmatch 01/12/17 01/12/17 01/12/17 11:35 17:45 23:14 WBC RBC Hgb Hct MCV MCH MCHC RDW Plt Count Lymph % (Auto) [place] % (Auto) Lymph # [place] # Baso # Seg Neutrophils % Seg Neuts % (Manual) Lymphocytes % (Manual) Monocytes % (Manual) Eosinophils % (Manual) Basophils % (Manual) Nucleated RBC % Seg Neutrophils # Seg Neutrophils # Man Lymphocytes # (Manual) Monocytes # (Manual) Eosinophils # (Manual) Basophils # (Manual) PT INR Fibrinogen dRVVT Confirm Interp Factor V Activity POC ABG pH POC ABG pCO2 POC ABG pO2 ABG pO2 ABG HCO3 ABG Base Excess ABG Hemoglobin Oxyhemoglobin Sodium Potassium Chloride Carbon Dioxide BUN Creatinine Glucose POC Glucose 146 H 117 H 123 H Lactic Acid Calcium Phosphorus Magnesium Direct Bilirubin AST ALT Alkaline Phosphatase Lactate Dehydrogenase Troponin T C-Reactive Protein Total Protein Albumin Prealbumin Triglycerides Cholesterol LDL Cholesterol Direct HDL Cholesterol Urine pH Urine WBC (Auto) Urine Creatinine Urine Total Protein Fluid Total Protein Vancomycin Trough Rheumatoid Factor Complement C4 Miscellaneous Test Crossmatch 01/13/17 01/13/17 01/13/17 05:32 06:00 12:17 WBC RBC Hgb Hct MCV MCH MCHC RDW Plt Count Lymph % (Auto) [place] % (Auto) Lymph # [place] # Baso # Seg Neutrophils % Seg Neuts % (Manual) Lymphocytes % (Manual) Monocytes % (Manual) Eosinophils % (Manual) Basophils % (Manual) Nucleated RBC % Seg Neutrophils # Seg Neutrophils # Man Lymphocytes # (Manual) Monocytes # (Manual) Eosinophils # (Manual) Basophils # (Manual) PT INR Fibrinogen dRVVT Confirm Interp Factor V Activity POC ABG pH POC ABG pCO2 POC ABG pO2 ABG pO2 ABG HCO3 ABG Base Excess ABG Hemoglobin Oxyhemoglobin Sodium Potassium Chloride Carbon Dioxide BUN 80 H Creatinine 1.4 H Glucose 106 H POC Glucose 106 H 168 H Lactic Acid Calcium Phosphorus Magnesium Direct Bilirubin AST ALT Alkaline Phosphatase Lactate Dehydrogenase Troponin T C-Reactive Protein Total Protein Albumin Prealbumin Triglycerides Cholesterol LDL Cholesterol Direct HDL Cholesterol Urine pH Urine WBC (Auto) Urine Creatinine Urine Total Protein Fluid Total Protein Vancomycin Trough Rheumatoid Factor Complement C4 Miscellaneous Test Crossmatch 01/13/17 01/13/17 01/13/17 15:50 17:30 23:42 WBC RBC Hgb Hct MCV MCH MCHC RDW Plt Count Lymph % (Auto) [place] % (Auto) Lymph # [place] # Baso # Seg Neutrophils % Seg Neuts % (Manual) Lymphocytes % (Manual) Monocytes % (Manual) Eosinophils % (Manual) Basophils % (Manual) Nucleated RBC % Seg Neutrophils # Seg Neutrophils # Man Lymphocytes # (Manual) Monocytes # (Manual) Eosinophils # (Manual) Basophils # (Manual) PT 15.4 H INR 1.16 H Fibrinogen dRVVT Confirm Interp Factor V Activity POC ABG pH POC ABG pCO2 POC ABG pO2 ABG pO2 ABG HCO3 ABG Base Excess ABG Hemoglobin Oxyhemoglobin Sodium Potassium Chloride Carbon Dioxide BUN Creatinine Glucose POC Glucose 110 H 155 H Lactic Acid Calcium Phosphorus Magnesium Direct Bilirubin AST ALT Alkaline Phosphatase Lactate Dehydrogenase Troponin T C-Reactive Protein Total Protein Albumin Prealbumin Triglycerides Cholesterol LDL Cholesterol Direct HDL Cholesterol Urine pH Urine WBC (Auto) Urine Creatinine Urine Total Protein Fluid Total Protein Vancomycin Trough Rheumatoid Factor Complement C4 Miscellaneous Test Crossmatch 01/14/17 01/14/17 01/14/17 05:24 05:30 12:48 WBC RBC Hgb Hct MCV MCH MCHC RDW Plt Count Lymph % (Auto) [place] % (Auto) Lymph # [place] # Baso # Seg Neutrophils % Seg Neuts % (Manual) Lymphocytes % (Manual) Monocytes % (Manual) Eosinophils % (Manual) Basophils % (Manual) Nucleated RBC % Seg Neutrophils # Seg Neutrophils # Man Lymphocytes # (Manual) Monocytes # (Manual) Eosinophils # (Manual) Basophils # (Manual) PT INR Fibrinogen dRVVT Confirm Interp Factor V Activity POC ABG pH POC ABG pCO2 POC ABG pO2 ABG pO2 ABG HCO3 ABG Base Excess ABG Hemoglobin Oxyhemoglobin Sodium Potassium Chloride Carbon Dioxide BUN 58 H Creatinine Glucose 114 H POC Glucose 121 H 130 H Lactic Acid Calcium Phosphorus Magnesium Direct Bilirubin AST ALT Alkaline Phosphatase Lactate Dehydrogenase Troponin T C-Reactive Protein Total Protein Albumin Prealbumin Triglycerides Cholesterol LDL Cholesterol Direct HDL Cholesterol Urine pH Urine WBC (Auto) Urine Creatinine Urine Total Protein Fluid Total Protein Vancomycin Trough Rheumatoid Factor Complement C4 Miscellaneous Test Crossmatch 01/14/17 01/15/17 01/15/17 17:36 00:15 05:01 WBC RBC Hgb Hct MCV MCH MCHC RDW Plt Count Lymph % (Auto) [place] % (Auto) Lymph # [place] # Baso # Seg Neutrophils % Seg Neuts % (Manual) Lymphocytes % (Manual) Monocytes % (Manual) Eosinophils % (Manual) Basophils % (Manual) Nucleated RBC % Seg Neutrophils # Seg Neutrophils # Man Lymphocytes # (Manual) Monocytes # (Manual) Eosinophils # (Manual) Basophils # (Manual) PT INR Fibrinogen dRVVT Confirm Interp Factor V Activity POC ABG pH POC ABG pCO2 POC ABG pO2 ABG pO2 ABG HCO3 ABG Base Excess ABG Hemoglobin Oxyhemoglobin Sodium Potassium Chloride Carbon Dioxide BUN Creatinine Glucose POC Glucose 135 H 132 H 126 H Lactic Acid Calcium Phosphorus Magnesium Direct Bilirubin AST ALT Alkaline Phosphatase Lactate Dehydrogenase Troponin T C-Reactive Protein Total Protein Albumin Prealbumin Triglycerides Cholesterol LDL Cholesterol Direct HDL Cholesterol Urine pH Urine WBC (Auto) Urine Creatinine Urine Total Protein Fluid Total Protein Vancomycin Trough Rheumatoid Factor Complement C4 Miscellaneous Test Crossmatch 01/15/17 01/15/17 01/15/17 11:55 12:45 12:45 WBC 16.2 H RBC 3.00 L Hgb 8.1 L Hct 25.4 L MCV MCH 27 L MCHC RDW 17.6 H Plt Count Lymph % (Auto) 11.7 L [place] % (Auto) 7.8 H Lymph # [place] # 1.3 H Baso # Seg Neutrophils % 80.1 H Seg Neuts % (Manual) Lymphocytes % (Manual) Monocytes % (Manual) Eosinophils % (Manual) Basophils % (Manual) Nucleated RBC % Seg Neutrophils # 13.0 H Seg Neutrophils # Man Lymphocytes # (Manual) Monocytes # (Manual) Eosinophils # (Manual) Basophils # (Manual) PT INR Fibrinogen dRVVT Confirm Interp Factor V Activity POC ABG pH POC ABG pCO2 POC ABG pO2 ABG pO2 ABG HCO3 ABG Base Excess ABG Hemoglobin Oxyhemoglobin Sodium 136 L Potassium Chloride Carbon Dioxide BUN 87 H Creatinine 1.7 H Glucose 108 H POC Glucose 125 H Lactic Acid Calcium Phosphorus Magnesium Direct Bilirubin AST ALT Alkaline Phosphatase Lactate Dehydrogenase Troponin T C-Reactive Protein Total Protein Albumin Prealbumin Triglycerides Cholesterol LDL Cholesterol Direct HDL Cholesterol Urine pH Urine WBC (Auto) Urine Creatinine Urine Total Protein Fluid Total Protein Vancomycin Trough Rheumatoid Factor Complement C4 Miscellaneous Test Crossmatch 01/15/17 01/15/17 01/16/17 17:31 23:39 05:23 WBC RBC Hgb Hct MCV MCH MCHC RDW Plt Count Lymph % (Auto) [place] % (Auto) Lymph # [place] # Baso # Seg Neutrophils % Seg Neuts % (Manual) Lymphocytes % (Manual) Monocytes % (Manual) Eosinophils % (Manual) Basophils % (Manual) Nucleated RBC % Seg Neutrophils # Seg Neutrophils # Man Lymphocytes # (Manual) Monocytes # (Manual) Eosinophils # (Manual) Basophils # (Manual) PT INR Fibrinogen dRVVT Confirm Interp Factor V Activity POC ABG pH POC ABG pCO2 POC ABG pO2 ABG pO2 ABG HCO3 ABG Base Excess ABG Hemoglobin Oxyhemoglobin Sodium Potassium Chloride Carbon Dioxide BUN Creatinine Glucose POC Glucose 129 H 112 H 118 H Lactic Acid Calcium Phosphorus Magnesium Direct Bilirubin AST ALT Alkaline Phosphatase Lactate Dehydrogenase Troponin T C-Reactive Protein Total Protein Albumin Prealbumin Triglycerides Cholesterol LDL Cholesterol Direct HDL Cholesterol Urine pH Urine WBC (Auto) Urine Creatinine Urine Total Protein Fluid Total Protein Vancomycin Trough Rheumatoid Factor Complement C4 Miscellaneous Test Crossmatch 01/16/17 01/16/17 01/16/17 11:42 12:32 17:52 WBC RBC Hgb Hct MCV MCH MCHC RDW Plt Count Lymph % (Auto) [place] % (Auto) Lymph # [place] # Baso # Seg Neutrophils % Seg Neuts % (Manual) Lymphocytes % (Manual) Monocytes % (Manual) Eosinophils % (Manual) Basophils % (Manual) Nucleated RBC % Seg Neutrophils # Seg Neutrophils # Man Lymphocytes # (Manual) Monocytes # (Manual) Eosinophils # (Manual) Basophils # (Manual) PT INR Fibrinogen dRVVT Confirm Interp Factor V Activity POC ABG pH 7.499 H POC ABG pCO2 30.9 L POC ABG pO2 51 L ABG pO2 ABG HCO3 ABG Base Excess ABG Hemoglobin Oxyhemoglobin Sodium Potassium Chloride Carbon Dioxide BUN Creatinine Glucose POC Glucose 133 H 130 H Lactic Acid Calcium Phosphorus Magnesium Direct Bilirubin AST ALT Alkaline Phosphatase Lactate Dehydrogenase Troponin T C-Reactive Protein Total Protein Albumin Prealbumin Triglycerides Cholesterol LDL Cholesterol Direct HDL Cholesterol Urine pH Urine WBC (Auto) Urine Creatinine Urine Total Protein Fluid Total Protein Vancomycin Trough Rheumatoid Factor Complement C4 Miscellaneous Test Crossmatch 01/16/17 01/16/17 01/17/17 23:57 Unknown 05:30 WBC RBC Hgb Hct MCV MCH MCHC RDW Plt Count Lymph % (Auto) [place] % (Auto) Lymph # [place] # Baso # Seg Neutrophils % Seg Neuts % (Manual) Lymphocytes % (Manual) Monocytes % (Manual) Eosinophils % (Manual) Basophils % (Manual) Nucleated RBC % Seg Neutrophils # Seg Neutrophils # Man Lymphocytes # (Manual) Monocytes # (Manual) Eosinophils # (Manual) Basophils # (Manual) PT INR Fibrinogen dRVVT Confirm Interp Factor V Activity POC ABG pH POC ABG pCO2 POC ABG pO2 ABG pO2 ABG HCO3 ABG Base Excess ABG Hemoglobin Oxyhemoglobin Sodium 135 L 134 L Potassium Chloride 95.8 L Carbon Dioxide BUN 101 H 66 H Creatinine 1.8 H 1.3 H Glucose 117 H 138 H POC Glucose 143 H Lactic Acid Calcium Phosphorus 5.80 H Magnesium Direct Bilirubin AST ALT Alkaline Phosphatase 254 H Lactate Dehydrogenase Troponin T C-Reactive Protein Total Protein Albumin 1.3 L Prealbumin Triglycerides Cholesterol LDL Cholesterol Direct HDL Cholesterol Urine pH Urine WBC (Auto) Urine Creatinine Urine Total Protein Fluid Total Protein Vancomycin Trough Rheumatoid Factor Complement C4 Miscellaneous Test Crossmatch 01/17/17 01/17/17 01/17/17 05:46 11:49 17:30 WBC RBC Hgb Hct MCV MCH MCHC RDW Plt Count Lymph % (Auto) [place] % (Auto) Lymph # [place] # Baso # Seg Neutrophils % Seg Neuts % (Manual) Lymphocytes % (Manual) Monocytes % (Manual) Eosinophils % (Manual) Basophils % (Manual) Nucleated RBC % Seg Neutrophils # Seg Neutrophils # Man Lymphocytes # (Manual) Monocytes # (Manual) Eosinophils # (Manual) Basophils # (Manual) PT INR Fibrinogen dRVVT Confirm Interp Factor V Activity POC ABG pH POC ABG pCO2 POC ABG pO2 ABG pO2 ABG HCO3 ABG Base Excess ABG Hemoglobin Oxyhemoglobin Sodium Potassium Chloride Carbon Dioxide BUN Creatinine Glucose POC Glucose 147 H 124 H 137 H Lactic Acid Calcium Phosphorus Magnesium Direct Bilirubin AST ALT Alkaline Phosphatase Lactate Dehydrogenase Troponin T C-Reactive Protein Total Protein Albumin Prealbumin Triglycerides Cholesterol LDL Cholesterol Direct HDL Cholesterol Urine pH Urine WBC (Auto) Urine Creatinine Urine Total Protein Fluid Total Protein Vancomycin Trough Rheumatoid Factor Complement C4 Miscellaneous Test Crossmatch 01/17/17 01/18/17 01/18/17 23:41 05:15 05:19 WBC RBC Hgb Hct MCV MCH MCHC RDW Plt Count Lymph % (Auto) [place] % (Auto) Lymph # [place] # Baso # Seg Neutrophils % Seg Neuts % (Manual) Lymphocytes % (Manual) Monocytes % (Manual) Eosinophils % (Manual) Basophils % (Manual) Nucleated RBC % Seg Neutrophils # Seg Neutrophils # Man Lymphocytes # (Manual) Monocytes # (Manual) Eosinophils # (Manual) Basophils # (Manual) PT INR Fibrinogen dRVVT Confirm Interp Factor V Activity POC ABG pH POC ABG pCO2 POC ABG pO2 ABG pO2 ABG HCO3 ABG Base Excess ABG Hemoglobin Oxyhemoglobin Sodium Potassium Chloride Carbon Dioxide BUN 89 H Creatinine 1.7 H Glucose 118 H POC Glucose 119 H 134 H Lactic Acid Calcium Phosphorus Magnesium Direct Bilirubin AST ALT Alkaline Phosphatase Lactate Dehydrogenase Troponin T C-Reactive Protein Total Protein Albumin Prealbumin Triglycerides Cholesterol LDL Cholesterol Direct HDL Cholesterol Urine pH Urine WBC (Auto) Urine Creatinine Urine Total Protein Fluid Total Protein Vancomycin Trough Rheumatoid Factor Complement C4 Miscellaneous Test Crossmatch Allied health notes reviewed: RT (not tolerating weaning. Has been on hold as she has been vomiting)
[2017-01-18] MEDS: HEPARIN SUB-Q SCH ×2 (10:00→21:33)
--- NOTE | 2017-01-18 10:53 | Progress Note ---
Assessment and Plan Assessment and plan: Patient is 46-year-old woman with a history of hypertension, diabetes, asthma, hyperlipidemia, chronic kidney disease and anxiety , who was brought in by family because, she couldn't get her words out, her face was also twisted, she was admitted for acute CVA and accelerated hypertension, she had a hx of poor adherence with her medications, and uncontrolled htn. Patient's SBP on admission was noted be greater than 260. TPA was started but this was discontinued after 5 minutes because her blood pressure became uncontrolled. The TPA was not initiated again because the patient was outside the TPA window. Ethics consult placed Spoke with son and brother, informed about persistent vegitative state. patient continues to have multiple recurrent fever, hypotension despite fluid overload, multiple recurrent electrolyte abnormalities, on TPN and cannot advance to Tube feeds due to overall clinical condition including bowel condition going on over 3 months. Family reports they were told by surgeon that patient will get better, I truly will like to believe the optimism but despite our best efforts, patients clinical condition at best is worse rather than improving. This has been conveyed to the family. They hope to come to the hospital for a family meeting. We will continue all agressive treatment methods. Will inform surgery about families visit once a time has been selected. Risk Management updated. Patient now on recurrent anemia requiring 2 units packed red blood cell Severe Leukocytosis. Will start meropenem and also consult ID. on the patient has no fever she is also with lactic acidosis of 9 which will be repeated. If leukocytosis is not improving should repeat CT abdomen and pelvis to rule out ischemic bowel Status post cardiac arrest , 11/21/16 on Mechanical ventilation >96 hrs - Received CPR and was resuscitated. - Patient is on amiodarone. Fever - resolved - Patient was initially treated with Abx - s/p R thoracentesis on 11/14, 240cc of serous fluid removed, cx of fluid was negative - Stool negative for C. difficile Severe Sepsis with septic shock - Patient has episode of fever and leukocytosis -Recurrent Leukocytosis, with Meropenem restarted, due to continued sacral decubitus. Surgical wound infection/gram-negative sepsis/candidemia/peritonitis - On TPN JUANITA, ESRD - discussed with Dr Wadsworth - on HD - Cr 1.7 today Acute CVA with infarct - Neurology input appreciated - CT shows continued evolution of left MCA infarct with slight mass effect and edema, and there is no hemorrhage - PRINCE showed hyperdynamic with ef of 75%, neither clot nor septal defect seen - MRA Brain shows near complete occlusion of M2 and M3 of the left MCA - Repeat CT scan done on 09/11, shows stable findings - carotid doppler negative - Echo shows preserved systolic function but does show some left ventricular diastolic dysfunction - continue asa and statin Persistent vegetative state - This patient's needs placement at SNF - She was denied for LTACH Acute hypoxic respiratory failure requiring MV >96hrs - Status post tracheostomy, was on T piece Nosocomial acquired aspiration pneumonia/sepsis/UTI - Finished a course of antibiotics Asthma/COPD exacerbation - ON trach, mechanical ventilation >96 hrs Status Post CVA Bilateral pleural effusion, s/p right thoracentesis A. fib with RVR Diabetes type 2. Continue sliding-scale regular insulin and Accu-Cheks. Hyperlipidemia. Continue statin Nutrition - TPN Anemia requiring multiple transfusions/acute blood loss - currently stable - Check AM labs - Will transfuse if it is below 7 Sacral decubitus ulcer - Status post debridement Disposition. Very poor prognosis. Ethics consult has been placed, will await there input. Cannot reach family, multiple calls placed. Nursing staff on the look out for family and will notify physician. The high probability of a clinically significant, sudden or life threatening deterioration of the [neurologic, CV] system(s) required my full and direct attention, intervention and personal management. The aggregate critical care time was [35] minutes. This time is in addition to time spent performing reported procedures but includes the following: [x] Data Review and interpretation [x] Patient assessment and monitoring of vital signs [x] Documentation [x] Medication orders and management History Interval history: patient seen and examined, remains unresponsive on the ventilator. NO IMPROVEMENT IN CONDITION. VOLUME OVERLOADED, RECURRENT FEVERS DESPITE MULTIPLE ANTIBIOTICS. Hospitalist Physical - Physical exam Narrative exam: GEN: Ill appearing, trach, staring into space, not tracking either NECK: SUPPLE, trach in place, ngt in place CVS: regular currently NORMAL S1S2 LUNGS/CHEST: NORMAL CHEST EXPANSION B, GOOD AIR ENTRY B ABD: SOFT, no grimise on abdominal palpation, ostomy bags in different locations AND STILL DRAINING, GBS, NO REBOUND OR GUARDING, peg tube in place EXT/SKIN: NO SIGNIFICANT EDEMA BUT WITH UNSTAGEABLE SACRAL DECUB, wound vac inplace MSK: +spontaneous non purposeful movement NEURO: on a ventilator and unresponsive despite being off sedation PSY: Comatose, - Constitutional Vitals: Temp Pulse Resp BP Pulse Ox 98.6 F 129 H 25 H 104/61 98 01/18/17 09:10 01/18/17 10:45 01/18/17 09:10 01/18/17 10:45 01/18/17 09:10 General appearance: Present: no acute distress, well-nourished, obese Results - Labs CBC & Chem 7: 01/15/17 12:45 01/19/17 05:30 Labs: Laboratory Last Values WBC 16.2 K/mm3 (4.5-11.0) H 01/15/17 12:45 RBC 3.00 M/mm3 (3.65-5.03) L 01/15/17 12:45 Hgb 8.1 gm/dl (10.1-14.3) L 01/15/17 12:45 Hct 25.4 % (30.3-42.9) L 01/15/17 12:45 MCV 85 fl (79-97) 01/15/17 12:45 MCH 27 pg (28-32) L 01/15/17 12:45 MCHC 32 % (30-34) 01/15/17 12:45 RDW 17.6 % (13.2-15.2) H 01/15/17 12:45 Plt Count 287 K/mm3 (140-440) 01/15/17 12:45 Lymph % (Auto) 11.7 % (13.4-35.0) L 01/15/17 12:45 Bonner % (Auto) 7.8 % (0.0-7.3) H 01/15/17 12:45 Eos % (Auto) 0.1 % (0.0-4.3) 01/15/17 12:45 Baso % (Auto) 0.3 % (0.0-1.8) 01/15/17 12:45 Lymph # 1.9 K/mm3 (1.2-5.4) 01/15/17 12:45 Bonner # 1.3 K/mm3 (0.0-0.8) H 01/15/17 12:45 Eos # 0.0 K/mm3 (0.0-0.4) 01/15/17 12:45 Baso # 0.0 K/mm3 (0.0-0.1) 01/15/17 12:45 Add Manual Diff Complete 12/19/16 05:02 Total Counted 100 12/19/16 05:02 Seg Neutrophils % 80.1 % (40.0-70.0) H 01/15/17 12:45 Seg Neuts % (Manual) 64.0 % (40.0-70.0) 12/19/16 05:02 Band Neutrophils % 15.0 % 12/19/16 05:02 Lymphocytes % (Manual) 13.0 % (13.4-35.0) L 12/19/16 05:02 Reactive Lymphs % (Man) 0 % 12/19/16 05:02 Monocytes % (Manual) 7.0 % (0.0-7.3) 12/19/16 05:02 Eosinophils % (Manual) 0 % (0.0-4.3) 12/19/16 05:02 Basophils % (Manual) 1.0 % (0.0-1.8) 12/19/16 05:02 Metamyelocytes % 0 % 12/19/16 05:02 Myelocytes % 0 % 12/19/16 05:02 Promyelocytes % 0 % 12/19/16 05:02 Blast Cells % 0 % 12/19/16 05:02 Nucleated RBC % 1.0 % (0.0-0.9) H 12/19/16 05:02 Seg Neutrophils # 13.0 K/mm3 (1.8-7.7) H 01/15/17 12:45 Seg Neutrophils # Man 12.9 K/mm3 (1.8-7.7) H 12/19/16 05:02 Band Neutrophils # 3.0 K/mm3 12/19/16 05:02 Lymphocytes # (Manual) 2.6 K/mm3 (1.2-5.4) 12/19/16 05:02 Abs React Lymphs (Man) 0.0 K/mm3 12/19/16 05:02 Monocytes # (Manual) 1.4 K/mm3 (0.0-0.8) H 12/19/16 05:02 Eosinophils # (Manual) 0.0 K/mm3 (0.0-0.4) 12/19/16 05:02 Basophils # (Manual) 0.2 K/mm3 (0.0-0.1) H 12/19/16 05:02 Metamyelocytes # 0.0 K/mm3 12/19/16 05:02 Myelocytes # 0.0 K/mm3 12/19/16 05:02 Promyelocytes # 0.0 K/mm3 12/19/16 05:02 Blast Cells # 0.0 K/mm3 12/19/16 05:02 Pathologist Review 09/13/16 04:00 WBC Morphology Not Reportable 12/19/16 05:02 Hypersegmented Neuts Not Reportable 12/19/16 05:02 Hyposegmented Neuts Not Reportable 12/19/16 05:02 Hypogranular Neuts Not Reportable 12/19/16 05:02 Smudge Cells Not Reportable 12/19/16 05:02 Toxic Granulation Not Reportable 12/19/16 05:02 Toxic Vacuolation Not Reportable 12/19/16 05:02 Dohle Bodies Not Reportable 12/19/16 05:02 Pelger-Huet Anomaly Not Reportable 12/19/16 05:02 Jasmina Rods Not Reportable 12/19/16 05:02 Platelet Estimate Consistent w auto 12/19/16 05:02 Clumped Platelets Not Reportable 12/19/16 05:02 Plt Clumps, EDTA Not Reportable 12/19/16 05:02 Large Platelets Not Reportable 12/19/16 05:02 Giant Platelets Not Reportable 12/19/16 05:02 Platelet Satelliting Not Reportable 12/19/16 05:02 Plt Morphology Comment Not Reportable 12/19/16 05:02 RBC Morphology Not Reportable 12/19/16 05:02 Dimorphic RBCs Not Reportable 12/19/16 05:02 Polychromasia Not Reportable 12/19/16 05:02 Hypochromasia Not Reportable 12/19/16 05:02 Poikilocytosis Not Reportable 12/19/16 05:02 Anisocytosis Not Reportable 12/19/16 05:02 Microcytosis Not Reportable 12/19/16 05:02 Macrocytosis Not Reportable 12/19/16 05:02 Spherocytes Not Reportable 12/19/16 05:02 Pappenheimer Bodies Not Reportable 12/19/16 05:02 Sickle Cells Not Reportable 12/19/16 05:02 Target Cells Few 12/19/16 05:02 Tear Drop Cells Not Reportable 12/19/16 05:02 Ovalocytes Not Reportable 12/19/16 05:02 Stomatocytes Rare 12/03/16 04:00 Helmet Cells Not Reportable 12/19/16 05:02 Monet-Cavalier Bodies Not Reportable 12/19/16 05:02 Victoria Rings Not Reportable 12/19/16 05:02 Chuck Cells Not Reportable 12/19/16 05:02 Bite Cells Not Reportable 12/19/16 05:02 Crenated Cell Not Reportable 12/19/16 05:02 Elliptocytes Not Reportable 12/19/16 05:02 Acanthocytes (Spur) Not Reportable 12/19/16 05:02 Rouleaux Not Reportable 12/19/16 05:02 Hemoglobin C Crystals Not Reportable 12/19/16 05:02 Schistocytes Not Reportable 12/19/16 05:02 Malaria parasites Not Reportable 12/19/16 05:02 ESR > 140.0 mm/Hr (0-20) 09/08/16 11:48 Jun Bodies Not Reportable 12/19/16 05:02 Hem Pathologist Commnt No 12/19/16 05:02 PT 15.4 Sec. (12.2-14.9) H 01/13/17 15:50 INR 1.16 (0.87-1.13) H 01/13/17 15:50 APTT 33.0 Sec. (24.2-36.6) 10/09/16 03:45 Thrombin Time 16.8 Sec. (15.1-19.6) 09/03/16 00:10 Fibrinogen 750 mg/dl (211-480) H 09/08/16 11:48 Lupus Anticoagulant see below 09/12/16 09:59 LA PTT Baseline See scanned report 09/12/16 09:59 dRVVT Confirm Interp Positive (Negative) H 09/12/16 09:59 dRVVT Screen 50:50 See scanned report 09/12/16 09:59 dRVVT Mix Interpret See scanned report 09/12/16 09:59 Protein C Antigen 122 % (70-140) 09/08/16 15:35 Free Protein S 97 % normal (50-147) 09/08/16 15:35 Total Protein S 109 % (70-140) 09/08/16 15:35 Antithrombin III Ag 100 % (80-120) 09/08/16 15:35 Heparin Anti-Xa, Unfract Negative (Negative) 09/29/16 13:35 Factor V Activity 182 % (65-150) H 09/08/16 15:35 POC ABG pH 7.499 (7.35-7.45) H 01/16/17 12:32 ABG pH 7.450 pH Units (7.350-7.450) 12/05/16 Unknown POC ABG pCO2 30.9 (35-45) L 01/16/17 12:32 ABG pCO2 29.6 mm Hg 12/05/16 Unknown POC ABG pO2 51 (80-105) L 01/16/17 12:32 ABG pO2 75.2 mm Hg (80.0-90.0) L 12/05/16 Unknown POC ABG HCO3 24.0 01/16/17 12:32 ABG HCO3 20.1 mmol/L (20.0-26.0) 12/05/16 Unknown POC ABG Total CO2 25 01/16/17 12:32 POC ABG O2 Sat 89 01/16/17 12:32 ABG O2 Saturation 96.8 % (95.0-99.0) 12/05/16 Unknown ABG O2 Content 9.9 (0.0-44) 12/05/16 Unknown POC ABG Base Excess 1 01/16/17 12:32 ABG Base Excess -3.4 mmol/L (-2.0-3.0) L 12/05/16 Unknown ABG Hemoglobin 7.4 gm/dl (12.0-16.0) L 12/05/16 Unknown ABG Carboxyhemoglobin 1.8 % (0.0-5.0) 12/05/16 Unknown ABG Methemoglobin 0.6 % (0.0-1.5) 12/05/16 Unknown Oxyhemoglobin 94.5 % (95.0-99.0) L 12/05/16 Unknown FiO2 60 % 01/16/17 12:32 Sodium 137 mmol/L (137-145) 01/18/17 05:15 Potassium 4.4 mmol/L (3.6-5.0) 01/18/17 05:15 Chloride 98.0 mmol/L (98-107) 01/18/17 05:15 Carbon Dioxide 23 mmol/L (22-30) 01/18/17 05:15 Anion Gap 20 mmol/L 01/18/17 05:15 BUN 89 mg/dL (7-17) H 01/18/17 05:15 Creatinine 1.7 mg/dL (0.7-1.2) H 01/18/17 05:15 Estimated GFR 39 ml/min 01/18/17 05:15 BUN/Creatinine Ratio 52 % 01/18/17 05:15 Glucose 118 mg/dL (65-100) H 01/18/17 05:15 POC Glucose 134 (70-105) H 01/18/17 05:19 Osmolality 351 Mosm/kg 09/16/16 11:47 Lactic Acid 2.30 mmol/L (0.7-2.0) H* 01/09/17 08:22 Calcium 8.9 mg/dL (8.4-10.2) 01/18/17 05:15 Phosphorus 3.60 mg/dL (2.5-4.5) 01/18/17 05:15 Magnesium 2.10 mg/dL (1.7-2.3) 01/18/17 05:15 Total Bilirubin 0.40 mg/dL (0.1-1.2) 01/17/17 05:30 Direct Bilirubin 0.3 mg/dL (0-0.2) H 10/10/16 05:00 Indirect Bilirubin 0.1 mg/dL 10/10/16 05:00 AST 26 units/L (5-40) 01/17/17 05:30 ALT 35 units/L (7-56) 01/17/17 05:30 Alkaline Phosphatase 254 units/L (35-129) H 01/17/17 05:30 Ammonia 27.0 umol/L (25-60) 09/07/16 08:37 Lactate Dehydrogenase 170 units/L (91-180) 01/13/17 15:50 Total Creatine Kinase 121 units/L (30-135) 09/29/16 20:12 CK-MB (CK-2) < 1.0 ng/mL (0.0-4.0) 09/29/16 20:12 CK-MB (CK-2) Rel Index 0.8 (0-4) 09/29/16 20:12 Troponin T 0.204 ng/mL (0.00-0.029) H* 09/29/16 20:12 C-Reactive Protein 24.70 mg/dL (0.00-1.30) H 01/09/17 13:30 Total Protein 6.6 g/dL (6.3-8.2) 01/17/17 05:30 Albumin 1.3 g/dL (3.9-5) L 01/17/17 05:30 Albumin/Globulin Ratio 0.2 % 01/17/17 05:30 Prealbumin 0.110 g/L (0.200-0.400) L 12/29/16 05:15 Triglycerides 137 mg/dL (2-149) 09/29/16 20:12 Cholesterol 31 mg/dL (50-199) L 09/29/16 20:12 LDL Cholesterol Direct 4 mg/dL (50-130) L 09/29/16 20:12 HDL Cholesterol 3 mg/dL (40-59) L 09/29/16 20:12 Cholesterol/HDL Ratio 10.33 % 09/29/16 20:12 Angiotensin Convert Enz See scanned report 09/08/16 11:48 Renin 0.99 ng/mL/h (0.25-5.82) 10/07/16 10:56 Aldosterone <1 ng/dL () 10/07/16 10:56 Aldosterone/Renin Dir see below 10/07/16 10:56 Serotonin Release Assay See scanned report 09/29/16 13:35 TSH 1.010 mlU/mL (0.270-4.200) 09/07/16 08:37 HCG, Qual Negative (Negative) 09/03/16 00:10 Urine Color Yellow (Yellow) 11/05/16 13:09 Urine Turbidity Clear (Clear) 11/05/16 13:09 Urine pH 9.0 (5.0-7.0) H 11/05/16 13:09 Ur Specific Mcleod 1.011 (1.003-1.030) 11/05/16 13:09 Urine Protein 100 mg/dl mg/dL (Negative) 11/05/16 13:09 Urine Glucose (UA) Neg mg/dL (Negative) 11/05/16 13:09 Urine Ketones Neg mg/dL (Negative) 11/05/16 13:09 Urine Blood Neg (Negative) 11/05/16 13:09 Urine Nitrite Neg (Negative) 11/05/16 13:09 Urine Bilirubin Neg (Negative) 11/05/16 13:09 Urine Urobilinogen < 2.0 mg/dL (<2.0) 11/05/16 13:09 Ur Leukocyte Esterase Neg (Negative) 11/05/16 13:09 Urine WBC (Auto) 4.0 /HPF (0.0-6.0) 11/05/16 13:09 Urine RBC (Auto) 1.0 /HPF (0.0-6.0) 11/05/16 13:09 U Epithel Cells (Auto) 1.0 /HPF (0-13.0) 10/07/16 18:30 Urine Bacteria (Auto) 4+ /HPF (Negative) 11/05/16 13:09 Urine WBC Clumps 2+ /HPF 09/07/16 02:47 Hyaline Casts 4 /LPF 09/07/16 02:47 Urine Mucus Few /HPF 10/07/16 18:30 Urine Yeast (Budding) 3+ /HPF 10/07/16 18:30 Urine Eosinophils None seen (None Seen) 09/07/16 16:00 Urine Total Volume 950 11/12/16 10:18 Urine Creatinine 19.7 mg/dL (0.1-20.0) 11/12/16 10:18 Height (in) 65.0 inches 11/12/16 10:18 Weight (lb) 181.0 lbs 11/12/16 10:18 Creatinine Clearance 5 11/12/16 10:18 Urine Sodium 36 mEq/L 09/16/16 19:19 Urine Total Protein 16 mg/dL (5-11.8) H 09/16/16 19:19 Fluid Type Pleural 01/13/17 12:10 Fluid Color Yellow 01/13/17 12:10 Fluid Appearance Hazy 01/13/17 12:10 Fluid WBC 182 /mm3 01/13/17 12:10 Fluid RBC 41 /mm3 01/13/17 12:10 Fluid Seg Neutrophils 85.0 % 01/13/17 12:10 Fluid Lymphocytes 8.0 % 01/13/17 12:10 Fluid Reactive Lymphs 0 % 01/13/17 12:10 Fluid Monocytes 6.0 % 01/13/17 12:10 Fluid Eosinophils 1.0 % 01/13/17 12:10 Fluid Basophils 0 % 01/13/17 12:10 Fluid Total Protein < 3.0 (15.0-45.0) L 11/10/16 14:20 Fluid LDH 123 11/10/16 14:20 Fluid Comment Diff performed 01/13/17 12:10 Vancomycin Trough 2.3 ug/mL (5.0-20.0) L 09/21/16 13:00 Random Vancomycin 16.5 ug/mL (0-40.0) 11/28/16 09:45 Urine Opiates Screen Presumptive negative 09/03/16 15:11 Urine Methadone Screen Presumptive positive 09/03/16 15:11 Ur Barbiturates Screen Presumptive positive 09/03/16 15:11 Ur Phencyclidine Scrn Presumptive negative 09/03/16 15:11 Ur Amphetamines Screen Presumptive negative 09/03/16 15:11 U Benzodiazepines Scrn Presumptive negative 09/03/16 15:11 Urine Cocaine Screen Presumptive negative 09/03/16 15:11 U Marijuana (THC) Screen Presumptive positive 09/03/16 15:11 Drugs of Abuse Note Disclamer 09/03/16 15:11 Rheumatoid Factor 24 IU/ml (0-13) H 09/08/16 11:48 SAHIL Screen Negative (Negative) 09/07/16 09:20 Proteinase 3 (PR3) Ab <1.0 AI (<1.0) 09/07/16 09:20 Myeloperoxidase Ab <1.0 AI (<1.0) 09/07/16 09:20 Sjogren's Antibody <1.0 AI (<1.0) 09/08/16 15:35 Scl-70 Scleroderma Ab <1.0 AI (<1.0) 09/08/16 15:35 Centromere B Antibody <1.0 AI (<1.0) 09/08/16 12:02 Heparin-induced Plt Ab Negative (Negative) 09/29/16 13:35 UF Heparin High Dose 11 % Release 09/29/16 13:35 SUDHIR UFH Low Dose 0.1 6 % Release 09/29/16 13:35 SUDHIR UFH Low Dose 0.5 8 % Release 09/29/16 13:35 Cardiolipid IgG Ab <14 GPL (<=14) 09/12/16 09:59 Cardiolipid IgA Ab <11 APL (<=11) 09/12/16 09:59 Cardiolipid IgM Ab <12 MPL (<=12) 09/12/16 09:59 Complement C3 148 mg/dL (90-180) 09/07/16 09:20 Complement C4 58 mg/dL (16-47) H 09/07/16 09:20 RPR Nonreactive (Nonreactive) 09/08/16 11:48 Hepatitis A IgM Ab Non-reactive (NonReactive) 09/24/16 14:40 Hep Bs Antigen Non-reactive (Negative) 09/24/16 14:40 Hep B Core IgM Ab Non-reactive (NonReactive) 09/24/16 14:40 Hepatitis C Antibody Non-reactive (NonReactive) 09/24/16 14:40 HIV 1&2 Antibody Rapid Non react (Non React) 09/08/16 11:48 HIV P24 Antigen Non react (Non React) 09/08/16 11:48 Miscellaneous Test Flexitest 1 H 01/09/17 18:45 Blood Type A POSITIVE 01/08/17 10:37 Antibody Screen Negative 01/08/17 10:37 DELORIS Antibody Screen Negative 11/24/16 11:20 Crossmatch See Detail 01/08/17 10:37
--- NOTE | 2017-01-18 11:25 | Progress Note ---
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 * Tolerating TPN well at this time. Shall monitor her electrolytes * monitor for renal recovery * Rate control per cardiology * Dose medications for renal function * Avoid potential nephrotoxins * Her urine output seems to be improving. She is clinically however still volume overloaded. Continue maintenance dialysis for now * Shall also add IV albumin with Lasix Subjective Date of service: 01/18/17 Principal diagnosis: Acute resp failure on MVS; S/P Acute CVA; Acute Encephalopathy; JUANITA Interval history: Patient is currently undergoing hemodialysis. She is on the ventilator. Now on 40% FiO2. Currently off pressors Objective - Vital Signs Vital signs: Vital Signs - 12hr 01/17/17 01/18/17 01/18/17 23:50 00:00 00:25 Temperature 98.1 F Pulse Rate 112 H 111 H 107 H Pulse Rate [ Anterior Bilateral Throughout] Pulse Rate [ From Monitor] Respiratory 21 Rate Respiratory Rate [Anterior Bilateral Throughout] Blood Pressure 121/77 103/63 103/63 O2 Sat by Pulse 100 100 Oximetry O2 Sat by Pulse Oximetry [ Anterior Bilateral Throughout] O2 Sat by Pulse Oximetry [ Assessment] 01/18/17 01/18/17 01/18/17 01:00 01:56 02:00 Temperature Pulse Rate 111 H 94 H Pulse Rate [ 107 H Anterior Bilateral Throughout] Pulse Rate [ From Monitor] Respiratory 14 25 H Rate Respiratory 19 Rate [Anterior Bilateral Throughout] Blood Pressure 103/60 117/62 O2 Sat by Pulse 100 96 Oximetry O2 Sat by Pulse Oximetry [ Anterior Bilateral Throughout] O2 Sat by Pulse Oximetry [ Assessment] 01/18/17 01/18/17 01/18/17 02:08 02:11 03:00 Temperature Pulse Rate 110 H Pulse Rate [ 110 H Anterior Bilateral Throughout] Pulse Rate [ From Monitor] Respiratory 24 Rate Respiratory 19 Rate [Anterior Bilateral Throughout] Blood Pressure 111/65 O2 Sat by Pulse 98 Oximetry O2 Sat by Pulse Oximetry [ Anterior Bilateral Throughout] O2 Sat by Pulse 97 Oximetry [ Assessment] 01/18/17 01/18/17 01/18/17 03:52 04:00 04:47 Temperature 98.8 F Pulse Rate 106 H 111 H Pulse Rate [ Anterior Bilateral Throughout] Pulse Rate [ From Monitor] Respiratory 17 Rate Respiratory Rate [Anterior Bilateral Throughout] Blood Pressure 102/51 119/71 O2 Sat by Pulse 99 95 98 Oximetry O2 Sat by Pulse Oximetry [ Anterior Bilateral Throughout] O2 Sat by Pulse Oximetry [ Assessment] 01/18/17 01/18/17 01/18/17 05:00 05:31 06:00 Temperature Pulse Rate 112 H 110 H Pulse Rate [ Anterior Bilateral Throughout] Pulse Rate [ From Monitor] Respiratory 20 16 Rate Respiratory Rate [Anterior Bilateral Throughout] Blood Pressure 125/66 124/70 112/65 O2 Sat by Pulse 98 97 Oximetry O2 Sat by Pulse Oximetry [ Anterior Bilateral Throughout] O2 Sat by Pulse Oximetry [ Assessment] 01/18/17 01/18/17 01/18/17 07:00 07:53 07:57 Temperature Pulse Rate 111 H 110 H Pulse Rate [ 114 H Anterior Bilateral Throughout] Pulse Rate [ From Monitor] Respiratory 21 Rate Respiratory 21 Rate [Anterior Bilateral Throughout] Blood Pressure 117/63 120/73 O2 Sat by Pulse 97 98 Oximetry O2 Sat by Pulse Oximetry [ Anterior Bilateral Throughout] O2 Sat by Pulse 98 Oximetry [ Assessment] 01/18/17 01/18/17 01/18/17 08:00 08:13 09:00 Temperature 98.6 F Pulse Rate 112 H 117 H Pulse Rate [ 115 H Anterior Bilateral Throughout] Pulse Rate [ 120 H From Monitor] Respiratory 16 23 Rate Respiratory 24 Rate [Anterior Bilateral Throughout] Blood Pressure 125/62 131/72 O2 Sat by Pulse 96 97 Oximetry O2 Sat by Pulse Oximetry [ Anterior Bilateral Throughout] O2 Sat by Pulse Oximetry [ Assessment] 01/18/17 01/18/17 01/18/17 09:10 09:20 09:30 Temperature 98.6 F Pulse Rate 119 H 119 H 118 H Pulse Rate [ Anterior Bilateral Throughout] Pulse Rate [ From Monitor] Respiratory 25 H Rate Respiratory Rate [Anterior Bilateral Throughout] Blood Pressure 113/63 113/63 105/62 O2 Sat by Pulse Oximetry O2 Sat by Pulse 98 Oximetry [ Anterior Bilateral Throughout] O2 Sat by Pulse Oximetry [ Assessment] 01/18/17 01/18/17 01/18/17 09:45 10:00 10:15 Temperature Pulse Rate 123 H 120 H 121 H Pulse Rate [ Anterior Bilateral Throughout] Pulse Rate [ From Monitor] Respiratory 27 H Rate Respiratory Rate [Anterior Bilateral Throughout] Blood Pressure 94/48 103/58 110/53 O2 Sat by Pulse 97 Oximetry O2 Sat by Pulse Oximetry [ Anterior Bilateral Throughout] O2 Sat by Pulse Oximetry [ Assessment] 01/18/17 01/18/17 01/18/17 10:30 10:45 11:00 Temperature Pulse Rate 118 H 129 H 118 H Pulse Rate [ Anterior Bilateral Throughout] Pulse Rate [ From Monitor] Respiratory 25 H Rate Respiratory Rate [Anterior Bilateral Throughout] Blood Pressure 102/58 104/61 110/59 O2 Sat by Pulse 97 Oximetry O2 Sat by Pulse Oximetry [ Anterior Bilateral Throughout] O2 Sat by Pulse Oximetry [ Assessment] 01/18/17 01/18/17 11:02 11:15 Temperature Pulse Rate 117 H 117 H Pulse Rate [ Anterior Bilateral Throughout] Pulse Rate [ From Monitor] Respiratory Rate Respiratory Rate [Anterior Bilateral Throughout] Blood Pressure 110/59 114/59 O2 Sat by Pulse Oximetry O2 Sat by Pulse Oximetry [ Anterior Bilateral Throughout] O2 Sat by Pulse Oximetry [ Assessment] - General Appearance General appearance: well-developed, well-nourished, appears stated age, intubated EENT: PERRL, mucous membranes moist Neck: no JVD, no thyromegaly, other (tracheostomy tube in place. Connected to the ventilator. Left IJ PermCath in place) Respiratory: Present: Decreased Breath Sounds (at the bases) Cardiology: regular, normal heart rate Gastrointestinal: normoactive bowel sounds, other (collection bag noted over her old PEG tube site) Integumentary: no rash, other (2+ edema) - Lab 01/15/17 12:45 01/18/17 05:15 Most recent lab results ABG pH 7.450 pH Units (7.350-7.450) 12/05/16 Unknown ABG pCO2 29.6 mm Hg 12/05/16 Unknown ABG pO2 75.2 mm Hg (80.0-90.0) L 12/05/16 Unknown ABG HCO3 20.1 mmol/L (20.0-26.0) 12/05/16 Unknown ABG O2 Saturation 96.8 % (95.0-99.0) 12/05/16 Unknown Calcium 8.9 mg/dL (8.4-10.2) 01/18/17 05:15 Phosphorus 3.60 mg/dL (2.5-4.5) 01/18/17 05:15 Magnesium 2.10 mg/dL (1.7-2.3) 01/18/17 05:15 Urine Creatinine 19.7 mg/dL (0.1-20.0) 11/12/16 10:18 Urine Sodium 36 mEq/L 09/16/16 19:19 Urine Total Protein 16 mg/dL (5-11.8) H 09/16/16 19:19
[2017-01-18] MEDS: DAKIN'S HALF STRENGTH TP SCH ×2 (11:26→21:34)
[2017-01-18 12:21] LABS: LDH,Body Fluid 1322
[2017-01-18] MEDS: HEPARIN IV PRN (12:27)
[2017-01-18] MEDS: NORVASC PO SCH (13:26)
[2017-01-18] MEDS: CORDARONE PO SCH ×2 (13:26→21:34)
[2017-01-18] MEDS: NACL 0.9% IV SCH (13:28)
[2017-01-18] MEDS: MERREM IV SCH (13:28)
[2017-01-18] MEDS: ROBINUL PO SCH ×2 (13:29→21:33)
[2017-01-18] MEDS: PROTONIX FEEDTUBE SCH (13:30)
[2017-01-18] MEDS: ZOFRAN IV PRN (13:32)
[2017-01-18] MEDS: DILAUDID IV PRN ×2 (13:46→18:12)
[2017-01-18] MEDS: ALBURX 25% (ALBUMIN) IV SCH (18:25)
[2017-01-18] MEDS: LASIX IV SCH (19:43)
[2017-01-18] MEDS ORDERED: INTRALIPID 20% 250 ML IV SCH (20:00)
[2017-01-18] MEDS ORDERED: TPN ADULT IV SCH (20:00)
[2017-01-19] MEDS: DUONEB *Not for PRN Use IH SCH ×4 (01:51→20:11)
[2017-01-19] MEDS: APRESOLINE PO SCH ×3 (05:37→21:00)
[2017-01-19] MEDS: LOPRESSOR PO SCH ×4 (05:37→17:43)
[2017-01-19] MEDS: ALBURX 25% (ALBUMIN) IV SCH ×2 (06:00→17:13)
[2017-01-19] MEDS: LASIX IV SCH ×2 (06:00→18:30)
[2017-01-19] MEDS: REGLAN IV SCH ×3 (06:00→21:02)
[2017-01-19] MEDS: HumuLIN R SUB-Q SCH ×4 (06:01→18:31)
[2017-01-19 07:10] LABS: Calcium 8.5 mg/dL (8.4-10.2)
--- NOTE | 2017-01-19 09:51 | Progress Note ---
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 * Tolerating TPN well at this time. Shall monitor her electrolytes * monitor for renal recovery * Rate control per cardiology * Dose medications for renal function * Avoid potential nephrotoxins * Approximately 250 mL of urine recorded yesterday. She seems to be putting out more urine with IV albumin and Lasix Subjective Date of service: 01/19/17 Principal diagnosis: Acute resp failure on MVS; S/P Acute CVA; Acute Encephalopathy; JUANITA Interval history: Patient remains on the ventilator. On 40% FiO2. Unresponsive. Objective - Vital Signs Vital signs: Vital Signs - 12hr 01/18/17 01/18/17 01/18/17 22:00 23:00 23:40 Temperature Pulse Rate 113 H 112 H 108 H Pulse Rate [ Anterior Bilateral Throughout] Pulse Rate [ From Monitor] Respiratory 27 H 27 H Rate Respiratory Rate [Anterior Bilateral Throughout] Blood Pressure 99/52 94/47 89/50 O2 Sat by Pulse 100 100 100 Oximetry O2 Sat by Pulse Oximetry [ Assessment] 01/18/17 01/19/17 01/19/17 23:42 00:00 01:00 Temperature 100.4 F H Pulse Rate 110 H 114 H Pulse Rate [ Anterior Bilateral Throughout] Pulse Rate [ From Monitor] Respiratory 24 26 H Rate Respiratory Rate [Anterior Bilateral Throughout] Blood Pressure 88/45 90/46 O2 Sat by Pulse 100 99 Oximetry O2 Sat by Pulse Oximetry [ Assessment] 01/19/17 01/19/17 01/19/17 01:51 02:00 02:11 Temperature Pulse Rate 118 H Pulse Rate [ 114 H 116 H Anterior Bilateral Throughout] Pulse Rate [ From Monitor] Respiratory 28 H Rate Respiratory 26 H 26 H Rate [Anterior Bilateral Throughout] Blood Pressure 90/49 O2 Sat by Pulse 99 Oximetry O2 Sat by Pulse Oximetry [ Assessment] 01/19/17 01/19/17 01/19/17 02:30 03:00 03:30 Temperature Pulse Rate 122 H 123 H 123 H Pulse Rate [ Anterior Bilateral Throughout] Pulse Rate [ From Monitor] Respiratory 27 H 30 H 32 H Rate Respiratory Rate [Anterior Bilateral Throughout] Blood Pressure 103/48 89/39 98/41 O2 Sat by Pulse 99 97 97 Oximetry O2 Sat by Pulse Oximetry [ Assessment] 01/19/17 01/19/17 01/19/17 03:32 03:33 04:00 Temperature 99 F Pulse Rate 118 H 126 H Pulse Rate [ Anterior Bilateral Throughout] Pulse Rate [ From Monitor] Respiratory 33 H Rate Respiratory Rate [Anterior Bilateral Throughout] Blood Pressure 81/45 O2 Sat by Pulse 98 Oximetry O2 Sat by Pulse Oximetry [ Assessment] 01/19/17 01/19/17 01/19/17 04:30 05:00 05:03 Temperature Pulse Rate 124 H 139 H Pulse Rate [ Anterior Bilateral Throughout] Pulse Rate [ From Monitor] Respiratory 33 H 34 H Rate Respiratory Rate [Anterior Bilateral Throughout] Blood Pressure 91/52 89/62 O2 Sat by Pulse 99 98 Oximetry O2 Sat by Pulse 99 Oximetry [ Assessment] 01/19/17 01/19/17 01/19/17 05:07 05:15 05:30 Temperature Pulse Rate 123 H 123 H 125 H Pulse Rate [ Anterior Bilateral Throughout] Pulse Rate [ From Monitor] Respiratory 31 H 29 H Rate Respiratory Rate [Anterior Bilateral Throughout] Blood Pressure 89/62 96/54 89/44 O2 Sat by Pulse 99 100 98 Oximetry O2 Sat by Pulse Oximetry [ Assessment] 01/19/17 01/19/17 01/19/17 05:37 05:45 06:00 Temperature Pulse Rate 122 H 132 H 122 H Pulse Rate [ Anterior Bilateral Throughout] Pulse Rate [ From Monitor] Respiratory 32 H 29 H Rate Respiratory Rate [Anterior Bilateral Throughout] Blood Pressure 89/44 103/62 107/61 O2 Sat by Pulse 98 98 Oximetry O2 Sat by Pulse Oximetry [ Assessment] 01/19/17 01/19/17 01/19/17 06:15 06:30 06:45 Temperature Pulse Rate 125 H 140 H 127 H Pulse Rate [ Anterior Bilateral Throughout] Pulse Rate [ From Monitor] Respiratory 31 H 31 H 28 H Rate Respiratory Rate [Anterior Bilateral Throughout] Blood Pressure 101/68 111/66 101/71 O2 Sat by Pulse 100 99 99 Oximetry O2 Sat by Pulse Oximetry [ Assessment] 01/19/17 01/19/17 01/19/17 07:00 07:15 07:30 Temperature Pulse Rate 127 H 130 H 136 H Pulse Rate [ Anterior Bilateral Throughout] Pulse Rate [ From Monitor] Respiratory 33 H 33 H 33 H Rate Respiratory Rate [Anterior Bilateral Throughout] Blood Pressure 111/62 115/61 108/62 O2 Sat by Pulse 97 97 98 Oximetry O2 Sat by Pulse Oximetry [ Assessment] 01/19/17 01/19/17 01/19/17 07:45 08:00 08:30 Temperature Pulse Rate 121 H 128 H 121 H Pulse Rate [ Anterior Bilateral Throughout] Pulse Rate [ 128 H From Monitor] Respiratory 33 H 37 H Rate Respiratory Rate [Anterior Bilateral Throughout] Blood Pressure 116/63 110/56 114/55 O2 Sat by Pulse 98 93 97 Oximetry O2 Sat by Pulse Oximetry [ Assessment] 01/19/17 01/19/17 01/19/17 08:33 08:52 08:53 Temperature Pulse Rate Pulse Rate [ 124 H 126 H Anterior Bilateral Throughout] Pulse Rate [ From Monitor] Respiratory Rate Respiratory 33 H 34 H Rate [Anterior Bilateral Throughout] Blood Pressure O2 Sat by Pulse Oximetry O2 Sat by Pulse 96 Oximetry [ Assessment] - General Appearance General appearance: well-developed, well-nourished, appears stated age, intubated EENT: PERRL, mucous membranes moist Neck: other (tracheostomy tube in place. Hooked up to the ventilator. Left IJ PermCath in place) Respiratory: Present: Ronchi (bilateral scattered rhonchi) Cardiology: regular, normal heart rate Gastrointestinal: normoactive bowel sounds, costovertebral, other (collection bag noted over her old PEG tube site) Integumentary: other (1+ edema) - Lab 01/15/17 12:45 01/19/17 05:30 Most recent lab results ABG pH 7.450 pH Units (7.350-7.450) 12/05/16 Unknown ABG pCO2 29.6 mm Hg 12/05/16 Unknown ABG pO2 75.2 mm Hg (80.0-90.0) L 12/05/16 Unknown ABG HCO3 20.1 mmol/L (20.0-26.0) 12/05/16 Unknown ABG O2 Saturation 96.8 % (95.0-99.0) 12/05/16 Unknown Calcium 8.5 mg/dL (8.4-10.2) 01/19/17 05:30 Phosphorus 2.10 mg/dL (2.5-4.5) L D 01/19/17 05:30 Magnesium 2.00 mg/dL (1.7-2.3) 01/19/17 05:30 Urine Creatinine 19.7 mg/dL (0.1-20.0) 11/12/16 10:18 Urine Sodium 36 mEq/L 09/16/16 19:19 Urine Total Protein 16 mg/dL (5-11.8) H 09/16/16 19:19
[2017-01-19] MEDS: MERREM IV SCH (09:58)
[2017-01-19] MEDS: NACL 0.9% IV SCH (09:58)
[2017-01-19] MEDS: CORDARONE PO SCH ×2 (09:59→21:03)
[2017-01-19] MEDS: ROBINUL PO SCH ×2 (10:00→21:50)
[2017-01-19] MEDS: HEPARIN SUB-Q SCH ×2 (10:00→21:01)
[2017-01-19] MEDS: PROTONIX FEEDTUBE SCH (10:00)
[2017-01-19] MEDS: NORVASC PO SCH (10:15)
--- NOTE | 2017-01-19 10:48 | Progress Note ---
Assessment and Plan Assessment: 1) Recurrent SIRS: unclear source, still low grade fever. Likely due to - infected sacral decubitus +/- VAP 2) History of Peritonitis: from gastric perforation from dislodged PEG with significant ascites -S/P exlap, repair of gastric perforation with wedge gastrectomy, abdominal washout, drain placement on 10/05. 3) History of Candidemia: -Blood cultures positive for Silvia albicans on 09/23 and 09/25 -Blood cultures negative on 09/30 -PICC line changed on 10/03 -Source ? gastric perf (PEG placed on 09/20) +/- TPN +/- central lines -TTE 10/07 no vegetations -PICC exchanged on 10/03 -fully treated with micafungin for 14 days last day 10/13 4) History CA-UTI s/p gutierrez exchanged 5) Diarrhea - ? etiology ? antibiotic-induced, not better. 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 from GI bleed 13) Recent abdominal wall abscess at surgical site-treated 14 ) Recent Enterococcal bacteremia from PICC line infection. 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 no cultures obtained 16) Presumed VAP: sputum + MDR Pseudomonas / Proteus Plan: -continue meropenem day 11 (if she has sacral osteo will do 4 weeks) -f/u pleural effusion cultures Thank you Dr Hodges for your consultation, will follow up with you. Pauline Carias MD Infectious Diseases Specialist [facility] M [phone] O [phone] Subjective Date of service: 01/19/17 Principal diagnosis: Acute resp failure on MVS; S/P Acute CVA; Acute Encephalopathy; JUANITA Interval history: Interval history: remains on the vent via trach no fever, off pressors, + TPN, tmax 100.4, tacy on monitor Microbiology: Blood cultures: 09/13 neg 09/23 Silvia albicans 09/25 Silvia 09/29 neg 10/07 neg 11/05 neg 11/07 ngtd 11/22 E faecalis 1 of 4 bottles 11/25 neg 12/27 neg 01/09 ngtd Urine cultures: 09/10 neg 09/13 neg 8/ 10-100K mixed species 10/07 neg 11/05 VRE 11/07 mixed bacteria Respiratory cultures: 09/07 neg 09/13 neg 8 neg 11/07 MDR Pseudomonas 10 tracheal + VRE 01/09 Pseudomonas x 3 and Proteues Pleural effusion: ngtd Wound cultures: 10/17 abd wall wound purulence + Pseudomonas MDR Stool cultures: cath tip 11/07 + ROLLER STAKER Current Antimicrobials: meropenem 01/08 Previous Antimicrobials: Zosyn 10/07 Vancomycin PO 10/01 Metronidazole 09/25 Micafungin 09/27-10/13 Meropenem 10/10 Vanco 10/17 zosyn 10/21 Cefepime 11/10 vancomyin 11/07 fluconazole 10/19 cefepime 10/29levaquin 11/05 vanco 11/23 Objective - Exam Narrative Exam: General appearance: alert non communicative, on the vent via trach in mild resp distress, no following commands Eyes: anicteric sclera, moist conjunctivae; PERRLA HENT: Atraumatic; oropharynx limited; Normal external ears. +NGT with greenish secretion Neck: +trach in place; supple, no thyromegaly or lymphadenopathy Lungs: brit coarse BS CV: rrr Abdomen: Soft, non-tender, +old PEG site no drainage. +iliostomy. 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 Neuro: alert non verbal on the vent. Lines: PICC / gutierrez - Constitutional Vitals: Vital Signs Temp Pulse Resp BP Pulse Ox 100.6 F H 118 H 24 110/63 100 01/19/17 08:00 01/19/17 10:30 01/19/17 10:30 01/19/17 10:30 01/19/17 10:30 Temperature -Last 24 Hours Temperature 100.6 F Temperature 99 F Temperature 100.4 F Temperature 99.6 F Temperature 97.5 F Temperature 97.9 F Temperature 97.5 F - Labs CBC & Chem 7: 01/15/17 12:45 01/19/17 05:30 Labs: Abnormal lab results 01/13/17 01/18/17 01/18/17 Range/Units 12:10 12:16 18:11 BUN (7-17) mg/dL Creatinine (0.7-1.2) mg/dL Glucose (65-100) mg/dL POC Glucose 188 H 113 H (70-105) Phosphorus (2.5-4.5) mg/dL Fluid Total Protein 3.0 L (15.0-45.0) 01/19/17 01/19/17 01/19/17 Range/Units 00:00 05:30 05:36 BUN 70 H (7-17) mg/dL Creatinine 1.5 H (0.7-1.2) mg/dL Glucose 121 H (65-100) mg/dL POC Glucose 137 H 155 H (70-105) Phosphorus 2.10 L D (2.5-4.5) mg/dL Fluid Total Protein (15.0-45.0)
--- NOTE | 2017-01-19 11:58 | Progress Note ---
Assessment and Plan Patient is 46-year-old woman with a history of hypertension, diabetes mellitus, asthma, hyperlipidemia, chronic kidney disease and anxiety, who was brought in by family because she couldn't get her words out, her face was also twisted, she was admitted for acute CVA and accelerated hypertension, she had a hx of poor adherence with her medications, and uncontrolled htn. Patient's SBP on admission was noted be greater than 260. TPA was started but this it was discontinued after 5 minutes because her blood pressure became uncontrolled. The TPA was not initiated again because the patient was outside the TPA window. Patient has had a prolonged hospital stay complicated with recurrent severe sepsis. Patient with most recent event also status post cardiac arrest on , with CPR and ROSC. Acute on chronic Hypoxemic Respiratory Failure ( not tolerating spontaneous breathing trials) Sepsis -recurrent s/p tracheostomy Hypertension Atrial Fibrillation with RVR Acute encephalopathy s/p CVA Oropharyngeal dysphagia Enterococcal bacteremia Sacral Decubitus Ulcer- unstageable s/p debridement Anemia Obesity JUANITA now on hemodialysis Enteric Fistula - VAP bundle addressed -CXR prn, s/p thoracentesis. - continue NGT to LIS -Continue promotility agent--reglan - continue wound care per WCT - Vasopressor if MAP falls < 65mmHg - keep on with daily PSV trials and / or T-piece as tolerated - continue TPN administration (continue TPN; NPO except for meds) - continue airway clearance and secretion management - continue to wean FiO2 for sats > 94% - continue antihypertensives and monitor hemodynamics closely - continue HD/UF per nephrology - continue to follow electrolytes and correct as necessary - continue GI & VTE prophylaxis -per Cardiology--failed cardioversion, not a candidate fro full anticoagulation. No further recommendations for management of atrial fibrillation. Rate control as tolerated by hemodynamics For further interventions per surgical service, as it pertains to the replacement of the PEG tube-Surgical service states that the patient is too high risk to attempt PEG placement. 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 - Patient Problems (1) Acute respiratory failure with hypoxia Current Visit: Yes Status: Acute (2) Acute blood loss anemia Current Visit: Yes Status: Resolved (3) Acute CVA (cerebrovascular accident) Current Visit: Yes Status: Acute (4) Chronic renal insufficiency Current Visit: Yes Status: Acute (5) Uncontrolled hypertension Current Visit: Yes Status: Acute (6) Leukocytosis (leucocytosis) Current Visit: Yes Status: Acute Qualifiers: Leukocytosis type: leukemoid reaction Qualified Code(s): D72.823 - Leukemoid reaction (7) Dislodged gastrostomy tube Current Visit: Yes Status: Acute (8) Fungemia Current Visit: Yes Status: Resolved (9) Cardiopulmonary arrest with successful resuscitation Current Visit: Yes Status: Acute Subjective Date of service: 01/19/17 Principal diagnosis: Acute resp failure on MVS; S/P Acute CVA; Acute Encephalopathy; JUANITA Interval history: Patient is seen today for: Acute resp failure on MVS; S/P Acute CVA; Acute Encephalopathy; JUANITA Seen and examined at bedside; 24hour events reviewed; nursing and respiratory care staff consulted; no adverse overnight events reported to me; she remains critically ill , RT held weaning today, patient has had recurrent vomiting with episodes of desaturations Per RN on going vomiting. Vitals, labs, medications, chart reviewed. Discussed on interdisciplinary rounds Objective - Exam Narrative Exam: General appearance: somnolent non communicative, on the vent via trach in mild resp distress, no following commands Eyes: anicteric sclera, moist conjunctivae; PERRLA HENT: Atraumatic; oropharynx limited; Normal external ears. +NGT with greenish secretion Neck: +trach in place; supple, no thyromegaly or lymphadenopathy Lungs: brit coarse BS CV: rrr Abdomen: Soft, non-tender, +old PEG site no drainage. +iliostomy. Right sided Surgical site x 2 with ostomy bag draining small amount yellowish secretion Extremities: +peripheral edema Skin: sacral area wounds . Necrotic tissue noted on the wound edges and in the wound bed Psych: somnolent . Neuro: alert non verbal on the vent. Lines: PICC / gutierrez Vital Signs - 12hr 01/19/17 01/19/17 01/19/17 00:00 01:00 01:51 Temperature Pulse Rate 110 H 114 H Pulse Rate [ 114 H Anterior Bilateral Throughout] Pulse Rate [ From Monitor] Respiratory 24 26 H Rate Respiratory 26 H Rate [Anterior Bilateral Throughout] Blood Pressure 88/45 90/46 O2 Sat by Pulse 100 99 Oximetry O2 Sat by Pulse Oximetry [ Assessment] 01/19/17 01/19/17 01/19/17 02:00 02:11 02:30 Temperature Pulse Rate 118 H 122 H Pulse Rate [ 116 H Anterior Bilateral Throughout] Pulse Rate [ From Monitor] Respiratory 28 H 27 H Rate Respiratory 26 H Rate [Anterior Bilateral Throughout] Blood Pressure 90/49 103/48 O2 Sat by Pulse 99 99 Oximetry O2 Sat by Pulse Oximetry [ Assessment] 01/19/17 01/19/17 01/19/17 03:00 03:30 03:32 Temperature Pulse Rate 123 H 123 H 118 H Pulse Rate [ Anterior Bilateral Throughout] Pulse Rate [ From Monitor] Respiratory 30 H 32 H Rate Respiratory Rate [Anterior Bilateral Throughout] Blood Pressure 89/39 98/41 O2 Sat by Pulse 97 97 Oximetry O2 Sat by Pulse Oximetry [ Assessment] 01/19/17 01/19/17 01/19/17 03:33 04:00 04:30 Temperature 99 F Pulse Rate 126 H 124 H Pulse Rate [ Anterior Bilateral Throughout] Pulse Rate [ From Monitor] Respiratory 33 H 33 H Rate Respiratory Rate [Anterior Bilateral Throughout] Blood Pressure 81/45 91/52 O2 Sat by Pulse 98 99 Oximetry O2 Sat by Pulse Oximetry [ Assessment] 01/19/17 01/19/17 01/19/17 05:00 05:03 05:07 Temperature Pulse Rate 139 H 123 H Pulse Rate [ Anterior Bilateral Throughout] Pulse Rate [ From Monitor] Respiratory 34 H Rate Respiratory Rate [Anterior Bilateral Throughout] Blood Pressure 89/62 89/62 O2 Sat by Pulse 98 99 Oximetry O2 Sat by Pulse 99 Oximetry [ Assessment] 01/19/17 01/19/17 01/19/17 05:15 05:30 05:37 Temperature Pulse Rate 123 H 125 H 122 H Pulse Rate [ Anterior Bilateral Throughout] Pulse Rate [ From Monitor] Respiratory 31 H 29 H Rate Respiratory Rate [Anterior Bilateral Throughout] Blood Pressure 96/54 89/44 89/44 O2 Sat by Pulse 100 98 Oximetry O2 Sat by Pulse Oximetry [ Assessment] 01/19/17 01/19/17 01/19/17 05:45 06:00 06:15 Temperature Pulse Rate 132 H 122 H 125 H Pulse Rate [ Anterior Bilateral Throughout] Pulse Rate [ From Monitor] Respiratory 32 H 29 H 31 H Rate Respiratory Rate [Anterior Bilateral Throughout] Blood Pressure 103/62 107/61 101/68 O2 Sat by Pulse 98 98 100 Oximetry O2 Sat by Pulse Oximetry [ Assessment] 01/19/17 01/19/17 01/19/17 06:30 06:45 07:00 Temperature Pulse Rate 140 H 127 H 127 H Pulse Rate [ Anterior Bilateral Throughout] Pulse Rate [ From Monitor] Respiratory 31 H 28 H 33 H Rate Respiratory Rate [Anterior Bilateral Throughout] Blood Pressure 111/66 101/71 111/62 O2 Sat by Pulse 99 99 97 Oximetry O2 Sat by Pulse Oximetry [ Assessment] 01/19/17 01/19/17 01/19/17 07:15 07:30 07:45 Temperature Pulse Rate 130 H 136 H 121 H Pulse Rate [ Anterior Bilateral Throughout] Pulse Rate [ From Monitor] Respiratory 33 H 33 H 33 H Rate Respiratory Rate [Anterior Bilateral Throughout] Blood Pressure 115/61 108/62 116/63 O2 Sat by Pulse 97 98 98 Oximetry O2 Sat by Pulse Oximetry [ Assessment] 01/19/17 01/19/17 01/19/17 08:00 08:15 08:30 Temperature 100.6 F H Pulse Rate 128 H 130 H 123 H Pulse Rate [ Anterior Bilateral Throughout] Pulse Rate [ 128 H From Monitor] Respiratory 37 H 34 H 32 H Rate Respiratory Rate [Anterior Bilateral Throughout] Blood Pressure 110/56 114/55 111/57 O2 Sat by Pulse 93 94 97 Oximetry O2 Sat by Pulse Oximetry [ Assessment] 01/19/17 01/19/17 01/19/17 08:33 08:45 08:52 Temperature Pulse Rate 125 H Pulse Rate [ 124 H 126 H Anterior Bilateral Throughout] Pulse Rate [ From Monitor] Respiratory 19 Rate Respiratory 33 H 34 H Rate [Anterior Bilateral Throughout] Blood Pressure 117/67 O2 Sat by Pulse 96 Oximetry O2 Sat by Pulse Oximetry [ Assessment] 01/19/17 01/19/17 01/19/17 08:53 09:00 09:15 Temperature Pulse Rate 121 H 121 H Pulse Rate [ Anterior Bilateral Throughout] Pulse Rate [ From Monitor] Respiratory 28 H 22 Rate Respiratory Rate [Anterior Bilateral Throughout] Blood Pressure 104/62 115/62 O2 Sat by Pulse 98 100 Oximetry O2 Sat by Pulse 96 Oximetry [ Assessment] 01/19/17 01/19/17 01/19/17 09:30 09:45 10:00 Temperature Pulse Rate 121 H 122 H 122 H Pulse Rate [ Anterior Bilateral Throughout] Pulse Rate [ From Monitor] Respiratory 30 H 31 H 34 H Rate Respiratory Rate [Anterior Bilateral Throughout] Blood Pressure 112/64 114/62 115/67 O2 Sat by Pulse 100 100 100 Oximetry O2 Sat by Pulse Oximetry [ Assessment] 01/19/17 01/19/17 01/19/17 10:15 10:30 11:03 Temperature Pulse Rate 118 H 118 H 112 H Pulse Rate [ Anterior Bilateral Throughout] Pulse Rate [ From Monitor] Respiratory 27 H 24 Rate Respiratory Rate [Anterior Bilateral Throughout] Blood Pressure 106/66 110/63 96/60 O2 Sat by Pulse 100 100 100 Oximetry O2 Sat by Pulse Oximetry [ Assessment] Constitutional: appears uncomfortable, other (not tracking) Eyes: non-icteric, other (tracheostomy tube in midline of neck) ENT: oropharynx moist, oropharyngeal exudate pre Neck: supple, no lymphadenopathy, no JVD, other (no thyromegaly) Effort: mildly labored Ascultation: Bilateral: clear, diminished breath sounds (bases), rales, rhonchi (and referred upper airway sounds) Percussion: Bilateral: not dull, dull (bases) Cardiovascular: regular rate and rhythm, other (no rubs / murmurs) Gastrointestinal: hypoactive bowel sounds, soft, non-tender, non-distended, other (RLQ & LUQ stomas with colostomy bags) Integumentary: decubitus ulcer (sacral; stage 4 s/p surgical debridement), other (no rash; no cellulitis; poor turgor) Extremities: no cyanosis, pulses normal, no ischemia or petechiae, edema (1+ bilaterally) Neurologic: pupils equal and round, unable to assess, other (encephalopathic) Psychiatric: other (unable to assess) CBC and BMP: 01/26/17 04:20 01/27/17 04:00 ABG, PT/INR, D-dimer: ABG POC ABG pH 7.499 (7.35-7.45) H 01/16/17 12:32 ABG pH 7.450 pH Units (7.350-7.450) 12/05/16 Unknown POC ABG pCO2 30.9 (35-45) L 01/16/17 12:32 ABG pCO2 29.6 mm Hg 12/05/16 Unknown POC ABG pO2 51 (80-105) L 01/16/17 12:32 ABG pO2 75.2 mm Hg (80.0-90.0) L 12/05/16 Unknown POC ABG HCO3 24.0 01/16/17 12:32 POC ABG Total CO2 25 01/16/17 12:32 POC ABG O2 Sat 89 01/16/17 12:32 ABG O2 Saturation 96.8 % (95.0-99.0) 12/05/16 Unknown PT/INR, D-dimer PT 15.4 Sec. (12.2-14.9) H 01/13/17 15:50 INR 1.16 (0.87-1.13) H 01/13/17 15:50 Abnormal lab findings: Abnormal Labs 09/03/16 09/03/16 09/03/16 00:03 00:10 00:10 WBC 13.9 H RBC 5.95 H Hgb Hct 44.0 H MCV 74 L MCH 22 L MCHC RDW 17.5 H Plt Count Lymph % (Auto) Simpson % (Auto) Lymph # Simpson # Baso # Seg Neutrophils % Seg Neuts % (Manual) Lymphocytes % (Manual) 54.0 H Monocytes % (Manual) Eosinophils % (Manual) Basophils % (Manual) Nucleated RBC % Seg Neutrophils # Seg Neutrophils # Man Lymphocytes # (Manual) 7.5 H Monocytes # (Manual) Eosinophils # (Manual) Basophils # (Manual) PT INR Fibrinogen dRVVT Confirm Interp Factor V Activity POC ABG pH POC ABG pCO2 POC ABG pO2 ABG pO2 ABG HCO3 ABG Base Excess ABG Hemoglobin Oxyhemoglobin Sodium Potassium 2.8 L* Chloride Carbon Dioxide 21 L BUN Creatinine 1.7 H Glucose 159 H POC Glucose 177 H Lactic Acid Calcium Phosphorus Magnesium Direct Bilirubin AST ALT Alkaline Phosphatase Lactate Dehydrogenase Troponin T C-Reactive Protein Total Protein Albumin Prealbumin Triglycerides Cholesterol LDL Cholesterol Direct HDL Cholesterol Urine pH Urine WBC (Auto) Urine Creatinine Urine Total Protein Fluid Total Protein Vancomycin Trough Rheumatoid Factor Complement C4 Miscellaneous Test Crossmatch 09/03/16 09/03/16 09/03/16 12:12 15:07 16:20 WBC RBC Hgb Hct MCV MCH MCHC RDW Plt Count Lymph % (Auto) Simpson % (Auto) Lymph # Simpson # Baso # Seg Neutrophils % Seg Neuts % (Manual) Lymphocytes % (Manual) Monocytes % (Manual) Eosinophils % (Manual) Basophils % (Manual) Nucleated RBC % Seg Neutrophils # Seg Neutrophils # Man Lymphocytes # (Manual) Monocytes # (Manual) Eosinophils # (Manual) Basophils # (Manual) PT INR Fibrinogen dRVVT Confirm Interp Factor V Activity POC ABG pH 7.452 H POC ABG pCO2 POC ABG pO2 ABG pO2 ABG HCO3 ABG Base Excess ABG Hemoglobin Oxyhemoglobin Sodium Potassium Chloride Carbon Dioxide BUN Creatinine Glucose POC Glucose 178 H Lactic Acid Calcium Phosphorus 2.20 L Magnesium 1.60 L Direct Bilirubin AST ALT Alkaline Phosphatase Lactate Dehydrogenase Troponin T C-Reactive Protein Total Protein Albumin Prealbumin Triglycerides Cholesterol LDL Cholesterol Direct HDL Cholesterol Urine pH Urine WBC (Auto) Urine Creatinine Urine Total Protein Fluid Total Protein Vancomycin Trough Rheumatoid Factor Complement C4 Miscellaneous Test Crossmatch 09/03/16 09/03/16 09/03/16 17:57 17:58 23:50 WBC RBC Hgb Hct MCV MCH MCHC RDW Plt Count Lymph % (Auto) Simpson % (Auto) Lymph # Simpson # Baso # Seg Neutrophils % Seg Neuts % (Manual) Lymphocytes % (Manual) Monocytes % (Manual) Eosinophils % (Manual) Basophils % (Manual) Nucleated RBC % Seg Neutrophils # Seg Neutrophils # Man Lymphocytes # (Manual) Monocytes # (Manual) Eosinophils # (Manual) Basophils # (Manual) PT INR Fibrinogen dRVVT Confirm Interp Factor V Activity POC ABG pH POC ABG pCO2 POC ABG pO2 ABG pO2 ABG HCO3 ABG Base Excess ABG Hemoglobin Oxyhemoglobin Sodium Potassium Chloride Carbon Dioxide BUN Creatinine Glucose POC Glucose 162 H 145 H Lactic Acid Calcium Phosphorus 2.30 L Magnesium Direct Bilirubin AST ALT Alkaline Phosphatase Lactate Dehydrogenase Troponin T C-Reactive Protein Total Protein Albumin Prealbumin Triglycerides Cholesterol LDL Cholesterol Direct HDL Cholesterol Urine pH Urine WBC (Auto) Urine Creatinine Urine Total Protein Fluid Total Protein Vancomycin Trough Rheumatoid Factor Complement C4 Miscellaneous Test Crossmatch 09/04/16 09/04/16 09/04/16 03:31 03:31 05:42 WBC RBC Hgb 9.7 L D Hct MCV 72 L MCH 23 L MCHC RDW 17.5 H Plt Count Lymph % (Auto) 11.1 L Simpson % (Auto) Lymph # Simpson # Baso # Seg Neutrophils % 84.3 H Seg Neuts % (Manual) Lymphocytes % (Manual) Monocytes % (Manual) Eosinophils % (Manual) Basophils % (Manual) Nucleated RBC % Seg Neutrophils # 8.9 H Seg Neutrophils # Man Lymphocytes # (Manual) Monocytes # (Manual) Eosinophils # (Manual) Basophils # (Manual) PT INR Fibrinogen dRVVT Confirm Interp Factor V Activity POC ABG pH POC ABG pCO2 POC ABG pO2 ABG pO2 ABG HCO3 ABG Base Excess ABG Hemoglobin Oxyhemoglobin Sodium 135 L Potassium 2.9 L* Chloride 97.2 L Carbon Dioxide 19 L BUN Creatinine 1.7 H Glucose 170 H POC Glucose 152 H Lactic Acid Calcium Phosphorus Magnesium Direct Bilirubin AST ALT Alkaline Phosphatase Lactate Dehydrogenase Troponin T C-Reactive Protein Total Protein Albumin Prealbumin Triglycerides 160 H Cholesterol LDL Cholesterol Direct HDL Cholesterol 31 L Urine pH Urine WBC (Auto) Urine Creatinine Urine Total Protein Fluid Total Protein Vancomycin Trough Rheumatoid Factor Complement C4 Miscellaneous Test Crossmatch 09/04/16 09/04/16 09/04/16 11:34 17:46 23:29 WBC RBC Hgb Hct MCV MCH MCHC RDW Plt Count Lymph % (Auto) Simpson % (Auto) Lymph # Simpson # Baso # Seg Neutrophils % Seg Neuts % (Manual) Lymphocytes % (Manual) Monocytes % (Manual) Eosinophils % (Manual) Basophils % (Manual) Nucleated RBC % Seg Neutrophils # Seg Neutrophils # Man Lymphocytes # (Manual) Monocytes # (Manual) Eosinophils # (Manual) Basophils # (Manual) PT INR Fibrinogen dRVVT Confirm Interp Factor V Activity POC ABG pH POC ABG pCO2 POC ABG pO2 ABG pO2 ABG HCO3 ABG Base Excess ABG Hemoglobin Oxyhemoglobin Sodium Potassium Chloride Carbon Dioxide BUN Creatinine Glucose POC Glucose 165 H 210 H 139 H Lactic Acid Calcium Phosphorus Magnesium Direct Bilirubin AST ALT Alkaline Phosphatase Lactate Dehydrogenase Troponin T C-Reactive Protein Total Protein Albumin Prealbumin Triglycerides Cholesterol LDL Cholesterol Direct HDL Cholesterol Urine pH Urine WBC (Auto) Urine Creatinine Urine Total Protein Fluid Total Protein Vancomycin Trough Rheumatoid Factor Complement C4 Miscellaneous Test Crossmatch 09/05/16 09/05/16 09/05/16 04:05 04:05 05:38 WBC RBC Hgb Hct MCV 76 L D MCH 23 L MCHC RDW 17.8 H Plt Count Lymph % (Auto) Simpson % (Auto) Lymph # Simpson # Baso # Seg Neutrophils % Seg Neuts % (Manual) Lymphocytes % (Manual) Monocytes % (Manual) Eosinophils % (Manual) Basophils % (Manual) Nucleated RBC % Seg Neutrophils # Seg Neutrophils # Man Lymphocytes # (Manual) Monocytes # (Manual) Eosinophils # (Manual) Basophils # (Manual) PT INR Fibrinogen dRVVT Confirm Interp Factor V Activity POC ABG pH POC ABG pCO2 POC ABG pO2 ABG pO2 ABG HCO3 ABG Base Excess ABG Hemoglobin Oxyhemoglobin Sodium 134 L Potassium Chloride Carbon Dioxide 18 L BUN Creatinine 1.8 H Glucose 192 H POC Glucose 175 H Lactic Acid Calcium Phosphorus Magnesium Direct Bilirubin AST ALT Alkaline Phosphatase Lactate Dehydrogenase Troponin T C-Reactive Protein Total Protein Albumin Prealbumin Triglycerides Cholesterol LDL Cholesterol Direct HDL Cholesterol Urine pH Urine WBC (Auto) Urine Creatinine Urine Total Protein Fluid Total Protein Vancomycin Trough Rheumatoid Factor Complement C4 Miscellaneous Test Crossmatch 09/05/16 09/05/16 09/05/16 11:38 17:48 23:22 WBC RBC Hgb Hct MCV MCH MCHC RDW Plt Count Lymph % (Auto) Simpson % (Auto) Lymph # Simpson # Baso # Seg Neutrophils % Seg Neuts % (Manual) Lymphocytes % (Manual) Monocytes % (Manual) Eosinophils % (Manual) Basophils % (Manual) Nucleated RBC % Seg Neutrophils # Seg Neutrophils # Man Lymphocytes # (Manual) Monocytes # (Manual) Eosinophils # (Manual) Basophils # (Manual) PT INR Fibrinogen dRVVT Confirm Interp Factor V Activity POC ABG pH POC ABG pCO2 POC ABG pO2 ABG pO2 ABG HCO3 ABG Base Excess ABG Hemoglobin Oxyhemoglobin Sodium Potassium Chloride Carbon Dioxide BUN Creatinine Glucose POC Glucose 164 H 186 H 195 H Lactic Acid Calcium Phosphorus Magnesium Direct Bilirubin AST ALT Alkaline Phosphatase Lactate Dehydrogenase Troponin T C-Reactive Protein Total Protein Albumin Prealbumin Triglycerides Cholesterol LDL Cholesterol Direct HDL Cholesterol Urine pH Urine WBC (Auto) Urine Creatinine Urine Total Protein Fluid Total Protein Vancomycin Trough Rheumatoid Factor Complement C4 Miscellaneous Test Crossmatch 09/06/16 09/06/16 09/06/16 04:12 05:59 07:32 WBC RBC Hgb Hct MCV MCH MCHC RDW Plt Count Lymph % (Auto) Simpson % (Auto) Lymph # Simpson # Baso # Seg Neutrophils % Seg Neuts % (Manual) Lymphocytes % (Manual) Monocytes % (Manual) Eosinophils % (Manual) Basophils % (Manual) Nucleated RBC % Seg Neutrophils # Seg Neutrophils # Man Lymphocytes # (Manual) Monocytes # (Manual) Eosinophils # (Manual) Basophils # (Manual) PT INR Fibrinogen dRVVT Confirm Interp Factor V Activity POC ABG pH 7.514 H POC ABG pCO2 29.1 L POC ABG pO2 72 L ABG pO2 ABG HCO3 ABG Base Excess ABG Hemoglobin Oxyhemoglobin Sodium 133 L Potassium 3.4 L Chloride 94.9 L Carbon Dioxide 19 L BUN 30 H Creatinine 2.1 H Glucose 139 H POC Glucose 146 H Lactic Acid Calcium Phosphorus Magnesium Direct Bilirubin AST ALT Alkaline Phosphatase Lactate Dehydrogenase Troponin T C-Reactive Protein Total Protein Albumin Prealbumin Triglycerides Cholesterol LDL Cholesterol Direct HDL Cholesterol Urine pH Urine WBC (Auto) Urine Creatinine Urine Total Protein Fluid Total Protein Vancomycin Trough Rheumatoid Factor Complement C4 Miscellaneous Test Crossmatch 09/06/16 09/06/16 09/06/16 11:57 17:58 19:02 WBC RBC Hgb Hct MCV MCH MCHC RDW Plt Count Lymph % (Auto) Simpson % (Auto) Lymph # Simpson # Baso # Seg Neutrophils % Seg Neuts % (Manual) Lymphocytes % (Manual) Monocytes % (Manual) Eosinophils % (Manual) Basophils % (Manual) Nucleated RBC % Seg Neutrophils # Seg Neutrophils # Man Lymphocytes # (Manual) Monocytes # (Manual) Eosinophils # (Manual) Basophils # (Manual) PT INR Fibrinogen dRVVT Confirm Interp Factor V Activity POC ABG pH 7.465 H POC ABG pCO2 32.0 L POC ABG pO2 ABG pO2 ABG HCO3 ABG Base Excess ABG Hemoglobin Oxyhemoglobin Sodium Potassium Chloride Carbon Dioxide BUN Creatinine Glucose POC Glucose 165 H 160 H Lactic Acid Calcium Phosphorus Magnesium Direct Bilirubin AST ALT Alkaline Phosphatase Lactate Dehydrogenase Troponin T C-Reactive Protein Total Protein Albumin Prealbumin Triglycerides Cholesterol LDL Cholesterol Direct HDL Cholesterol Urine pH Urine WBC (Auto) Urine Creatinine Urine Total Protein Fluid Total Protein Vancomycin Trough Rheumatoid Factor Complement C4 Miscellaneous Test Crossmatch 09/06/16 09/07/16 09/07/16 23:45 02:47 02:47 WBC RBC Hgb Hct MCV MCH MCHC RDW Plt Count Lymph % (Auto) Simpson % (Auto) Lymph # Simpson # Baso # Seg Neutrophils % Seg Neuts % (Manual) Lymphocytes % (Manual) Monocytes % (Manual) Eosinophils % (Manual) Basophils % (Manual) Nucleated RBC % Seg Neutrophils # Seg Neutrophils # Man Lymphocytes # (Manual) Monocytes # (Manual) Eosinophils # (Manual) Basophils # (Manual) PT INR Fibrinogen dRVVT Confirm Interp Factor V Activity POC ABG pH POC ABG pCO2 POC ABG pO2 ABG pO2 ABG HCO3 ABG Base Excess ABG Hemoglobin Oxyhemoglobin Sodium Potassium Chloride Carbon Dioxide BUN Creatinine Glucose POC Glucose 204 H Lactic Acid Calcium Phosphorus Magnesium Direct Bilirubin AST ALT Alkaline Phosphatase Lactate Dehydrogenase Troponin T C-Reactive Protein Total Protein Albumin Prealbumin Triglycerides Cholesterol LDL Cholesterol Direct HDL Cholesterol Urine pH Urine WBC (Auto) 68.0 H Urine Creatinine 106.1 H Urine Total Protein Fluid Total Protein Vancomycin Trough Rheumatoid Factor Complement C4 Miscellaneous Test Crossmatch 09/07/16 09/07/16 09/07/16 04:50 06:19 06:39 WBC RBC Hgb Hct MCV MCH MCHC RDW Plt Count Lymph % (Auto) Simpson % (Auto) Lymph # Simpson # Baso # Seg Neutrophils % Seg Neuts % (Manual) Lymphocytes % (Manual) Monocytes % (Manual) Eosinophils % (Manual) Basophils % (Manual) Nucleated RBC % Seg Neutrophils # Seg Neutrophils # Man Lymphocytes # (Manual) Monocytes # (Manual) Eosinophils # (Manual) Basophils # (Manual) PT INR Fibrinogen dRVVT Confirm Interp Factor V Activity POC ABG pH 7.457 H POC ABG pCO2 32.1 L POC ABG pO2 76 L ABG pO2 ABG HCO3 ABG Base Excess ABG Hemoglobin Oxyhemoglobin Sodium 132 L Potassium Chloride 94.7 L Carbon Dioxide BUN 53 H Creatinine 2.9 H Glucose 151 H POC Glucose 149 H Lactic Acid Calcium Phosphorus Magnesium Direct Bilirubin AST ALT Alkaline Phosphatase Lactate Dehydrogenase Troponin T C-Reactive Protein Total Protein Albumin Prealbumin Triglycerides Cholesterol LDL Cholesterol Direct HDL Cholesterol Urine pH Urine WBC (Auto) Urine Creatinine Urine Total Protein Fluid Total Protein Vancomycin Trough Rheumatoid Factor Complement C4 Miscellaneous Test Crossmatch 09/07/16 09/07/16 09/07/16 09:20 11:43 11:43 WBC 19.4 H RBC Hgb 8.3 L Hct 26.4 L D MCV 72 L D MCH 22 L MCHC RDW 17.9 H Plt Count Lymph % (Auto) 8.5 L Simpson % (Auto) Lymph # Simpson # 1.0 H Baso # Seg Neutrophils % 85.8 H Seg Neuts % (Manual) Lymphocytes % (Manual) Monocytes % (Manual) Eosinophils % (Manual) Basophils % (Manual) Nucleated RBC % Seg Neutrophils # 16.6 H Seg Neutrophils # Man Lymphocytes # (Manual) Monocytes # (Manual) Eosinophils # (Manual) Basophils # (Manual) PT INR Fibrinogen dRVVT Confirm Interp Factor V Activity POC ABG pH POC ABG pCO2 POC ABG pO2 ABG pO2 ABG HCO3 ABG Base Excess ABG Hemoglobin Oxyhemoglobin Sodium 134 L Potassium Chloride 97.2 L Carbon Dioxide 20 L BUN 58 H Creatinine 2.9 H Glucose 147 H POC Glucose Lactic Acid Calcium Phosphorus 2.40 L Magnesium 2.40 H Direct Bilirubin AST ALT Alkaline Phosphatase Lactate Dehydrogenase Troponin T C-Reactive Protein Total Protein 5.8 L Albumin 2.2 L Prealbumin Triglycerides Cholesterol LDL Cholesterol Direct HDL Cholesterol Urine pH Urine WBC (Auto) Urine Creatinine Urine Total Protein Fluid Total Protein Vancomycin Trough Rheumatoid Factor Complement C4 58 H Miscellaneous Test Crossmatch 09/07/16 09/07/16 09/07/16 11:50 16:00 17:31 WBC RBC Hgb Hct MCV MCH MCHC RDW Plt Count Lymph % (Auto) Simpson % (Auto) Lymph # Simpson # Baso # Seg Neutrophils % Seg Neuts % (Manual) Lymphocytes % (Manual) Monocytes % (Manual) Eosinophils % (Manual) Basophils % (Manual) Nucleated RBC % Seg Neutrophils # Seg Neutrophils # Man Lymphocytes # (Manual) Monocytes # (Manual) Eosinophils # (Manual) Basophils # (Manual) PT INR Fibrinogen dRVVT Confirm Interp Factor V Activity POC ABG pH POC ABG pCO2 POC ABG pO2 158 H ABG pO2 ABG HCO3 ABG Base Excess ABG Hemoglobin Oxyhemoglobin Sodium Potassium Chloride Carbon Dioxide BUN Creatinine Glucose POC Glucose 175 H Lactic Acid Calcium Phosphorus Magnesium Direct Bilirubin AST ALT Alkaline Phosphatase Lactate Dehydrogenase Troponin T C-Reactive Protein Total Protein Albumin Prealbumin Triglycerides Cholesterol LDL Cholesterol Direct HDL Cholesterol Urine pH Urine WBC (Auto) Urine Creatinine 66.3 H Urine Total Protein Fluid Total Protein Vancomycin Trough Rheumatoid Factor Complement C4 Miscellaneous Test Crossmatch 09/07/16 09/08/16 09/08/16 23:50 05:46 06:18 WBC 17.8 H RBC 3.58 L Hgb 8.1 L Hct 25.5 L MCV 71 L MCH 23 L MCHC RDW 18.4 H Plt Count Lymph % (Auto) Simpson % (Auto) Lymph # Simpson # Baso # Seg Neutrophils % Seg Neuts % (Manual) 92.0 H Lymphocytes % (Manual) 6.0 L Monocytes % (Manual) Eosinophils % (Manual) Basophils % (Manual) Nucleated RBC % Seg Neutrophils # Seg Neutrophils # Man 16.4 H Lymphocytes # (Manual) 1.1 L Monocytes # (Manual) Eosinophils # (Manual) Basophils # (Manual) PT INR Fibrinogen dRVVT Confirm Interp Factor V Activity POC ABG pH POC ABG pCO2 34.3 L POC ABG pO2 71 L ABG pO2 ABG HCO3 ABG Base Excess ABG Hemoglobin Oxyhemoglobin Sodium Potassium Chloride Carbon Dioxide BUN Creatinine Glucose POC Glucose 216 H Lactic Acid Calcium Phosphorus Magnesium Direct Bilirubin AST ALT Alkaline Phosphatase Lactate Dehydrogenase Troponin T C-Reactive Protein Total Protein Albumin Prealbumin Triglycerides Cholesterol LDL Cholesterol Direct HDL Cholesterol Urine pH Urine WBC (Auto) Urine Creatinine Urine Total Protein Fluid Total Protein Vancomycin Trough Rheumatoid Factor Complement C4 Miscellaneous Test Crossmatch 09/08/16 09/08/16 09/08/16 06:18 06:51 10:55 WBC RBC Hgb Hct MCV MCH MCHC RDW Plt Count Lymph % (Auto) Simpson % (Auto) Lymph # Simpson # Baso # Seg Neutrophils % Seg Neuts % (Manual) Lymphocytes % (Manual) Monocytes % (Manual) Eosinophils % (Manual) Basophils % (Manual) Nucleated RBC % Seg Neutrophils # Seg Neutrophils # Man Lymphocytes # (Manual) Monocytes # (Manual) Eosinophils # (Manual) Basophils # (Manual) PT INR Fibrinogen dRVVT Confirm Interp Factor V Activity POC ABG pH POC ABG pCO2 POC ABG pO2 ABG pO2 ABG HCO3 ABG Base Excess ABG Hemoglobin Oxyhemoglobin Sodium 133 L Potassium Chloride 96.9 L Carbon Dioxide 20 L BUN 63 H Creatinine 2.7 H Glucose 195 H POC Glucose 204 H 169 H Lactic Acid Calcium Phosphorus Magnesium Direct Bilirubin AST ALT Alkaline Phosphatase Lactate Dehydrogenase Troponin T C-Reactive Protein Total Protein Albumin Prealbumin Triglycerides Cholesterol LDL Cholesterol Direct HDL Cholesterol Urine pH Urine WBC (Auto) Urine Creatinine Urine Total Protein Fluid Total Protein Vancomycin Trough Rheumatoid Factor Complement C4 Miscellaneous Test Crossmatch 09/08/16 09/08/16 09/08/16 11:48 11:48 11:48 WBC RBC Hgb Hct MCV MCH MCHC RDW Plt Count Lymph % (Auto) Simpson % (Auto) Lymph # Simpson # Baso # Seg Neutrophils % Seg Neuts % (Manual) Lymphocytes % (Manual) Monocytes % (Manual) Eosinophils % (Manual) Basophils % (Manual) Nucleated RBC % Seg Neutrophils # Seg Neutrophils # Man Lymphocytes # (Manual) Monocytes # (Manual) Eosinophils # (Manual) Basophils # (Manual) PT INR Fibrinogen 750 H dRVVT Confirm Interp Factor V Activity POC ABG pH POC ABG pCO2 POC ABG pO2 ABG pO2 ABG HCO3 ABG Base Excess ABG Hemoglobin Oxyhemoglobin Sodium Potassium Chloride Carbon Dioxide BUN Creatinine Glucose POC Glucose Lactic Acid Calcium Phosphorus Magnesium Direct Bilirubin AST ALT Alkaline Phosphatase Lactate Dehydrogenase Troponin T C-Reactive Protein 15.70 H Total Protein Albumin Prealbumin Triglycerides Cholesterol LDL Cholesterol Direct HDL Cholesterol Urine pH Urine WBC (Auto) Urine Creatinine Urine Total Protein Fluid Total Protein Vancomycin Trough Rheumatoid Factor 24 H Complement C4 Miscellaneous Test Crossmatch 09/08/16 09/08/16 09/09/16 15:35 18:25 00:24 WBC RBC Hgb Hct MCV MCH MCHC RDW Plt Count Lymph % (Auto) Simpson % (Auto) Lymph # Simpson # Baso # Seg Neutrophils % Seg Neuts % (Manual) Lymphocytes % (Manual) Monocytes % (Manual) Eosinophils % (Manual) Basophils % (Manual) Nucleated RBC % Seg Neutrophils # Seg Neutrophils # Man Lymphocytes # (Manual) Monocytes # (Manual) Eosinophils # (Manual) Basophils # (Manual) PT INR Fibrinogen dRVVT Confirm Interp Factor V Activity 182 H POC ABG pH POC ABG pCO2 POC ABG pO2 ABG pO2 ABG HCO3 ABG Base Excess ABG Hemoglobin Oxyhemoglobin Sodium Potassium Chloride Carbon Dioxide BUN Creatinine Glucose POC Glucose 184 H 216 H Lactic Acid Calcium Phosphorus Magnesium Direct Bilirubin AST ALT Alkaline Phosphatase Lactate Dehydrogenase Troponin T C-Reactive Protein Total Protein Albumin Prealbumin Triglycerides Cholesterol LDL Cholesterol Direct HDL Cholesterol Urine pH Urine WBC (Auto) Urine Creatinine Urine Total Protein Fluid Total Protein Vancomycin Trough Rheumatoid Factor Complement C4 Miscellaneous Test Crossmatch 09/09/16 09/09/16 09/09/16 03:00 03:00 04:04 WBC 27.9 H RBC Hgb 8.7 L Hct 28.1 L MCV 72 L MCH 22 L MCHC RDW 18.4 H Plt Count 485 H Lymph % (Auto) Simpson % (Auto) Lymph # Simpson # Baso # Seg Neutrophils % Seg Neuts % (Manual) 77.0 H Lymphocytes % (Manual) 9.0 L Monocytes % (Manual) Eosinophils % (Manual) Basophils % (Manual) Nucleated RBC % Seg Neutrophils # Seg Neutrophils # Man 21.5 H Lymphocytes # (Manual) Monocytes # (Manual) 2.0 H Eosinophils # (Manual) Basophils # (Manual) PT INR Fibrinogen dRVVT Confirm Interp Factor V Activity POC ABG pH POC ABG pCO2 POC ABG pO2 121 H ABG pO2 ABG HCO3 ABG Base Excess ABG Hemoglobin Oxyhemoglobin Sodium 135 L Potassium Chloride 96.3 L Carbon Dioxide 21 L BUN 83 H Creatinine 3.0 H Glucose 135 H POC Glucose Lactic Acid Calcium Phosphorus Magnesium Direct Bilirubin AST ALT Alkaline Phosphatase Lactate Dehydrogenase Troponin T C-Reactive Protein Total Protein Albumin Prealbumin Triglycerides Cholesterol LDL Cholesterol Direct HDL Cholesterol Urine pH Urine WBC (Auto) Urine Creatinine Urine Total Protein Fluid Total Protein Vancomycin Trough Rheumatoid Factor Complement C4 Miscellaneous Test Crossmatch 09/09/16 09/09/16 09/09/16 05:41 11:55 14:13 WBC RBC Hgb Hct MCV MCH MCHC RDW Plt Count Lymph % (Auto) Simpson % (Auto) Lymph # Simpson # Baso # Seg Neutrophils % Seg Neuts % (Manual) Lymphocytes % (Manual) Monocytes % (Manual) Eosinophils % (Manual) Basophils % (Manual) Nucleated RBC % Seg Neutrophils # Seg Neutrophils # Man Lymphocytes # (Manual) Monocytes # (Manual) Eosinophils # (Manual) Basophils # (Manual) PT INR Fibrinogen dRVVT Confirm Interp Factor V Activity POC ABG pH POC ABG pCO2 POC ABG pO2 ABG pO2 ABG HCO3 ABG Base Excess ABG Hemoglobin Oxyhemoglobin Sodium Potassium Chloride Carbon Dioxide BUN Creatinine Glucose POC Glucose 155 H 186 H Lactic Acid Calcium Phosphorus Magnesium Direct Bilirubin AST ALT Alkaline Phosphatase Lactate Dehydrogenase Troponin T C-Reactive Protein Total Protein Albumin Prealbumin Triglycerides Cholesterol LDL Cholesterol Direct HDL Cholesterol Urine pH Urine WBC (Auto) 25.0 H Urine Creatinine Urine Total Protein Fluid Total Protein Vancomycin Trough Rheumatoid Factor Complement C4 Miscellaneous Test Crossmatch 09/09/16 09/09/16 09/10/16 17:33 23:13 05:09 WBC RBC Hgb Hct MCV MCH MCHC RDW Plt Count Lymph % (Auto) Simpson % (Auto) Lymph # Simpson # Baso # Seg Neutrophils % Seg Neuts % (Manual) Lymphocytes % (Manual) Monocytes % (Manual) Eosinophils % (Manual) Basophils % (Manual) Nucleated RBC % Seg Neutrophils # Seg Neutrophils # Man Lymphocytes # (Manual) Monocytes # (Manual) Eosinophils # (Manual) Basophils # (Manual) PT INR Fibrinogen dRVVT Confirm Interp Factor V Activity POC ABG pH POC ABG pCO2 POC ABG pO2 74 L ABG pO2 ABG HCO3 ABG Base Excess ABG Hemoglobin Oxyhemoglobin Sodium Potassium Chloride Carbon Dioxide BUN Creatinine Glucose POC Glucose 211 H 215 H Lactic Acid Calcium Phosphorus Magnesium Direct Bilirubin AST ALT Alkaline Phosphatase Lactate Dehydrogenase Troponin T C-Reactive Protein Total Protein Albumin Prealbumin Triglycerides Cholesterol LDL Cholesterol Direct HDL Cholesterol Urine pH Urine WBC (Auto) Urine Creatinine Urine Total Protein Fluid Total Protein Vancomycin Trough Rheumatoid Factor Complement C4 Miscellaneous Test Crossmatch 09/10/16 09/10/16 09/10/16 05:17 05:17 11:31 WBC 15.8 H RBC 3.25 L Hgb 7.3 L Hct 22.9 L MCV 71 L MCH 23 L MCHC RDW 18.4 H Plt Count Lymph % (Auto) Simpson % (Auto) Lymph # Simpson # Baso # Seg Neutrophils % Seg Neuts % (Manual) 91.0 H Lymphocytes % (Manual) 4.0 L Monocytes % (Manual) Eosinophils % (Manual) Basophils % (Manual) Nucleated RBC % Seg Neutrophils # Seg Neutrophils # Man 14.4 H Lymphocytes # (Manual) 0.6 L Monocytes # (Manual) Eosinophils # (Manual) Basophils # (Manual) PT INR Fibrinogen dRVVT Confirm Interp Factor V Activity POC ABG pH POC ABG pCO2 POC ABG pO2 ABG pO2 ABG HCO3 ABG Base Excess ABG Hemoglobin Oxyhemoglobin Sodium Potassium Chloride Carbon Dioxide 21 L BUN 93 H Creatinine 2.9 H Glucose 146 H POC Glucose 188 H Lactic Acid Calcium 8.1 L Phosphorus Magnesium Direct Bilirubin AST ALT Alkaline Phosphatase Lactate Dehydrogenase Troponin T C-Reactive Protein Total Protein Albumin Prealbumin Triglycerides Cholesterol LDL Cholesterol Direct HDL Cholesterol Urine pH Urine WBC (Auto) Urine Creatinine Urine Total Protein Fluid Total Protein Vancomycin Trough Rheumatoid Factor Complement C4 Miscellaneous Test Crossmatch 09/10/16 09/10/16 09/10/16 13:17 17:20 23:32 WBC RBC Hgb Hct MCV MCH MCHC RDW Plt Count Lymph % (Auto) Simpson % (Auto) Lymph # Simpson # Baso # Seg Neutrophils % Seg Neuts % (Manual) Lymphocytes % (Manual) Monocytes % (Manual) Eosinophils % (Manual) Basophils % (Manual) Nucleated RBC % Seg Neutrophils # Seg Neutrophils # Man Lymphocytes # (Manual) Monocytes # (Manual) Eosinophils # (Manual) Basophils # (Manual) PT INR Fibrinogen dRVVT Confirm Interp Factor V Activity POC ABG pH POC ABG pCO2 POC ABG pO2 ABG pO2 ABG HCO3 ABG Base Excess ABG Hemoglobin Oxyhemoglobin Sodium Potassium Chloride Carbon Dioxide BUN Creatinine Glucose POC Glucose 199 H 186 H Lactic Acid Calcium Phosphorus Magnesium Direct Bilirubin AST ALT Alkaline Phosphatase Lactate Dehydrogenase Troponin T C-Reactive Protein Total Protein Albumin Prealbumin Triglycerides Cholesterol LDL Cholesterol Direct HDL Cholesterol Urine pH Urine WBC (Auto) Urine Creatinine Urine Total Protein Fluid Total Protein Vancomycin Trough Rheumatoid Factor Complement C4 Miscellaneous Test Crossmatch See Detail 09/11/16 09/11/16 09/11/16 05:10 05:10 05:17 WBC 28.4 H RBC Hgb 9.2 L Hct 29.3 L D MCV 73 L MCH 23 L MCHC RDW 18.9 H Plt Count 452 H Lymph % (Auto) Simpson % (Auto) Lymph # Simpson # Baso # Seg Neutrophils % Seg Neuts % (Manual) 89.5 H Lymphocytes % (Manual) 2.0 L Monocytes % (Manual) Eosinophils % (Manual) Basophils % (Manual) Nucleated RBC % Seg Neutrophils # Seg Neutrophils # Man 25.4 H Lymphocytes # (Manual) 0.6 L Monocytes # (Manual) 1.3 H Eosinophils # (Manual) Basophils # (Manual) PT INR Fibrinogen dRVVT Confirm Interp Factor V Activity POC ABG pH POC ABG pCO2 POC ABG pO2 ABG pO2 ABG HCO3 ABG Base Excess ABG Hemoglobin Oxyhemoglobin Sodium 136 L Potassium Chloride Carbon Dioxide 18 L BUN 107 H Creatinine 2.6 H Glucose 187 H POC Glucose 230 H Lactic Acid Calcium 8.3 L Phosphorus Magnesium Direct Bilirubin AST ALT Alkaline Phosphatase Lactate Dehydrogenase Troponin T C-Reactive Protein Total Protein Albumin Prealbumin Triglycerides Cholesterol LDL Cholesterol Direct HDL Cholesterol Urine pH Urine WBC (Auto) Urine Creatinine Urine Total Protein Fluid Total Protein Vancomycin Trough Rheumatoid Factor Complement C4 Miscellaneous Test Crossmatch 09/11/16 09/11/16 09/11/16 05:55 12:02 17:32 WBC RBC Hgb Hct MCV MCH MCHC RDW Plt Count Lymph % (Auto) Simpson % (Auto) Lymph # Simpson # Baso # Seg Neutrophils % Seg Neuts % (Manual) Lymphocytes % (Manual) Monocytes % (Manual) Eosinophils % (Manual) Basophils % (Manual) Nucleated RBC % Seg Neutrophils # Seg Neutrophils # Man Lymphocytes # (Manual) Monocytes # (Manual) Eosinophils # (Manual) Basophils # (Manual) PT INR Fibrinogen dRVVT Confirm Interp Factor V Activity POC ABG pH POC ABG pCO2 33.8 L POC ABG pO2 ABG pO2 ABG HCO3 ABG Base Excess ABG Hemoglobin Oxyhemoglobin Sodium Potassium Chloride Carbon Dioxide BUN Creatinine Glucose POC Glucose 191 H 239 H Lactic Acid Calcium Phosphorus Magnesium Direct Bilirubin AST ALT Alkaline Phosphatase Lactate Dehydrogenase Troponin T C-Reactive Protein Total Protein Albumin Prealbumin Triglycerides Cholesterol LDL Cholesterol Direct HDL Cholesterol Urine pH Urine WBC (Auto) Urine Creatinine Urine Total Protein Fluid Total Protein Vancomycin Trough Rheumatoid Factor Complement C4 Miscellaneous Test Crossmatch 09/11/16 09/12/16 09/12/16 23:52 05:09 05:32 WBC RBC Hgb Hct MCV MCH MCHC RDW Plt Count Lymph % (Auto) Simpson % (Auto) Lymph # Simpson # Baso # Seg Neutrophils % Seg Neuts % (Manual) Lymphocytes % (Manual) Monocytes % (Manual) Eosinophils % (Manual) Basophils % (Manual) Nucleated RBC % Seg Neutrophils # Seg Neutrophils # Man Lymphocytes # (Manual) Monocytes # (Manual) Eosinophils # (Manual) Basophils # (Manual) PT INR Fibrinogen dRVVT Confirm Interp Factor V Activity POC ABG pH POC ABG pCO2 34.6 L POC ABG pO2 ABG pO2 ABG HCO3 ABG Base Excess ABG Hemoglobin Oxyhemoglobin Sodium Potassium Chloride Carbon Dioxide BUN Creatinine Glucose POC Glucose 265 H 184 H Lactic Acid Calcium Phosphorus Magnesium Direct Bilirubin AST ALT Alkaline Phosphatase Lactate Dehydrogenase Troponin T C-Reactive Protein Total Protein Albumin Prealbumin Triglycerides Cholesterol LDL Cholesterol Direct HDL Cholesterol Urine pH Urine WBC (Auto) Urine Creatinine Urine Total Protein Fluid Total Protein Vancomycin Trough Rheumatoid Factor Complement C4 Miscellaneous Test Crossmatch 09/12/16 09/12/16 09/12/16 06:45 06:45 07:22 WBC 31.7 H RBC 3.54 L Hgb 8.3 L Hct 25.9 L MCV 73 L MCH 23 L MCHC RDW 18.9 H Plt Count Lymph % (Auto) Simpson % (Auto) Lymph # Simpson # Baso # Seg Neutrophils % Seg Neuts % (Manual) 88.5 H Lymphocytes % (Manual) 4.5 L Monocytes % (Manual) Eosinophils % (Manual) Basophils % (Manual) Nucleated RBC % Seg Neutrophils # Seg Neutrophils # Man 28.1 H Lymphocytes # (Manual) Monocytes # (Manual) 1.0 H Eosinophils # (Manual) Basophils # (Manual) PT INR Fibrinogen dRVVT Confirm Interp Factor V Activity POC ABG pH POC ABG pCO2 POC ABG pO2 ABG pO2 ABG HCO3 ABG Base Excess ABG Hemoglobin Oxyhemoglobin Sodium Potassium Chloride Carbon Dioxide 20 L BUN 115 H Creatinine 2.7 H Glucose 165 H POC Glucose Lactic Acid Calcium 8.0 L Phosphorus Magnesium Direct Bilirubin AST ALT Alkaline Phosphatase Lactate Dehydrogenase Troponin T C-Reactive Protein Total Protein Albumin Prealbumin Triglycerides 217 H Cholesterol LDL Cholesterol Direct HDL Cholesterol Urine pH Urine WBC (Auto) Urine Creatinine Urine Total Protein Fluid Total Protein Vancomycin Trough Rheumatoid Factor Complement C4 Miscellaneous Test Crossmatch 09/12/16 09/12/16 09/12/16 07:22 09:59 12:21 WBC RBC Hgb Hct MCV MCH MCHC RDW Plt Count Lymph % (Auto) Simpson % (Auto) Lymph # Simpson # Baso # Seg Neutrophils % Seg Neuts % (Manual) Lymphocytes % (Manual) Monocytes % (Manual) Eosinophils % (Manual) Basophils % (Manual) Nucleated RBC % Seg Neutrophils # Seg Neutrophils # Man Lymphocytes # (Manual) Monocytes # (Manual) Eosinophils # (Manual) Basophils # (Manual) PT INR Fibrinogen dRVVT Confirm Interp Positive H Factor V Activity POC ABG pH POC ABG pCO2 POC ABG pO2 ABG pO2 ABG HCO3 ABG Base Excess ABG Hemoglobin Oxyhemoglobin Sodium Potassium Chloride Carbon Dioxide BUN Creatinine Glucose POC Glucose 224 H Lactic Acid Calcium Phosphorus Magnesium Direct Bilirubin AST ALT Alkaline Phosphatase Lactate Dehydrogenase Troponin T C-Reactive Protein 1.70 H Total Protein Albumin Prealbumin Triglycerides Cholesterol LDL Cholesterol Direct HDL Cholesterol Urine pH Urine WBC (Auto) Urine Creatinine Urine Total Protein Fluid Total Protein Vancomycin Trough Rheumatoid Factor Complement C4 Miscellaneous Test Crossmatch 09/12/16 09/12/16 09/13/16 16:51 23:28 04:00 WBC 45.0 H* RBC Hgb 9.4 L Hct MCV 75 L MCH 23 L MCHC RDW 19.0 H Plt Count 470 H Lymph % (Auto) Simpson % (Auto) Lymph # Simpson # Baso # Seg Neutrophils % Seg Neuts % (Manual) 89.0 H Lymphocytes % (Manual) 5.0 L Monocytes % (Manual) Eosinophils % (Manual) Basophils % (Manual) Nucleated RBC % Seg Neutrophils # Seg Neutrophils # Man 40.1 H Lymphocytes # (Manual) Monocytes # (Manual) Eosinophils # (Manual) Basophils # (Manual) PT INR Fibrinogen dRVVT Confirm Interp Factor V Activity POC ABG pH POC ABG pCO2 POC ABG pO2 ABG pO2 ABG HCO3 ABG Base Excess ABG Hemoglobin Oxyhemoglobin Sodium Potassium Chloride Carbon Dioxide BUN Creatinine Glucose POC Glucose 169 H 150 H Lactic Acid Calcium Phosphorus Magnesium Direct Bilirubin AST ALT Alkaline Phosphatase Lactate Dehydrogenase Troponin T C-Reactive Protein Total Protein Albumin Prealbumin Triglycerides Cholesterol LDL Cholesterol Direct HDL Cholesterol Urine pH Urine WBC (Auto) Urine Creatinine Urine Total Protein Fluid Total Protein Vancomycin Trough Rheumatoid Factor Complement C4 Miscellaneous Test Crossmatch 09/13/16 09/13/16 09/13/16 04:00 11:26 17:31 WBC RBC Hgb Hct MCV MCH MCHC RDW Plt Count Lymph % (Auto) Simpson % (Auto) Lymph # Simpson # Baso # Seg Neutrophils % Seg Neuts % (Manual) Lymphocytes % (Manual) Monocytes % (Manual) Eosinophils % (Manual) Basophils % (Manual) Nucleated RBC % Seg Neutrophils # Seg Neutrophils # Man Lymphocytes # (Manual) Monocytes # (Manual) Eosinophils # (Manual) Basophils # (Manual) PT INR Fibrinogen dRVVT Confirm Interp Factor V Activity POC ABG pH POC ABG pCO2 POC ABG pO2 ABG pO2 ABG HCO3 ABG Base Excess ABG Hemoglobin Oxyhemoglobin Sodium Potassium Chloride Carbon Dioxide 20 L BUN 116 H Creatinine 3.0 H Glucose 172 H POC Glucose 140 H 183 H Lactic Acid Calcium Phosphorus Magnesium Direct Bilirubin AST ALT Alkaline Phosphatase Lactate Dehydrogenase Troponin T C-Reactive Protein Total Protein 6.2 L Albumin 2.9 L Prealbumin Triglycerides Cholesterol LDL Cholesterol Direct HDL Cholesterol Urine pH Urine WBC (Auto) Urine Creatinine Urine Total Protein Fluid Total Protein Vancomycin Trough Rheumatoid Factor Complement C4 Miscellaneous Test Crossmatch 09/13/16 09/14/16 09/14/16 23:23 04:06 04:07 WBC 29.4 H RBC Hgb 8.9 L Hct 27.3 L MCV 75 L MCH 24 L MCHC RDW 19.1 H Plt Count Lymph % (Auto) Simpson % (Auto) Lymph # Simpson # Baso # Seg Neutrophils % Seg Neuts % (Manual) 84.0 H Lymphocytes % (Manual) 6.0 L Monocytes % (Manual) 9.0 H Eosinophils % (Manual) Basophils % (Manual) Nucleated RBC % Seg Neutrophils # Seg Neutrophils # Man 24.7 H Lymphocytes # (Manual) Monocytes # (Manual) 2.6 H Eosinophils # (Manual) Basophils # (Manual) PT INR Fibrinogen dRVVT Confirm Interp Factor V Activity POC ABG pH 7.342 L POC ABG pCO2 POC ABG pO2 116 H ABG pO2 ABG HCO3 ABG Base Excess ABG Hemoglobin Oxyhemoglobin Sodium Potassium Chloride Carbon Dioxide BUN Creatinine Glucose POC Glucose 154 H Lactic Acid Calcium Phosphorus Magnesium Direct Bilirubin AST ALT Alkaline Phosphatase Lactate Dehydrogenase Troponin T C-Reactive Protein Total Protein Albumin Prealbumin Triglycerides Cholesterol LDL Cholesterol Direct HDL Cholesterol Urine pH Urine WBC (Auto) Urine Creatinine Urine Total Protein Fluid Total Protein Vancomycin Trough Rheumatoid Factor Complement C4 Miscellaneous Test Crossmatch 09/14/16 09/14/16 09/14/16 04:07 05:29 12:19 WBC RBC Hgb Hct MCV MCH MCHC RDW Plt Count Lymph % (Auto) Simpson % (Auto) Lymph # Simpson # Baso # Seg Neutrophils % Seg Neuts % (Manual) Lymphocytes % (Manual) Monocytes % (Manual) Eosinophils % (Manual) Basophils % (Manual) Nucleated RBC % Seg Neutrophils # Seg Neutrophils # Man Lymphocytes # (Manual) Monocytes # (Manual) Eosinophils # (Manual) Basophils # (Manual) PT INR Fibrinogen dRVVT Confirm Interp Factor V Activity POC ABG pH POC ABG pCO2 POC ABG pO2 ABG pO2 ABG HCO3 ABG Base Excess ABG Hemoglobin Oxyhemoglobin Sodium 136 L Potassium Chloride Carbon Dioxide 18 L BUN 121 H Creatinine 2.8 H Glucose 214 H POC Glucose 239 H 181 H Lactic Acid Calcium Phosphorus Magnesium Direct Bilirubin AST ALT Alkaline Phosphatase Lactate Dehydrogenase Troponin T C-Reactive Protein Total Protein Albumin Prealbumin Triglycerides Cholesterol LDL Cholesterol Direct HDL Cholesterol Urine pH Urine WBC (Auto) Urine Creatinine Urine Total Protein Fluid Total Protein Vancomycin Trough Rheumatoid Factor Complement C4 Miscellaneous Test Crossmatch 09/14/16 09/14/16 09/15/16 18:12 23:37 05:00 WBC 26.1 H RBC 3.05 L Hgb 7.2 L Hct 22.9 L MCV 75 L MCH 24 L MCHC RDW 19.0 H Plt Count Lymph % (Auto) Simpson % (Auto) Lymph # Simpson # Baso # Seg Neutrophils % Seg Neuts % (Manual) Lymphocytes % (Manual) Monocytes % (Manual) Eosinophils % (Manual) Basophils % (Manual) Nucleated RBC % Seg Neutrophils # Seg Neutrophils # Man Lymphocytes # (Manual) Monocytes # (Manual) Eosinophils # (Manual) Basophils # (Manual) PT INR Fibrinogen dRVVT Confirm Interp Factor V Activity POC ABG pH POC ABG pCO2 POC ABG pO2 ABG pO2 ABG HCO3 ABG Base Excess ABG Hemoglobin Oxyhemoglobin Sodium Potassium Chloride Carbon Dioxide BUN Creatinine Glucose POC Glucose 266 H 154 H Lactic Acid Calcium Phosphorus Magnesium Direct Bilirubin AST ALT Alkaline Phosphatase Lactate Dehydrogenase Troponin T C-Reactive Protein Total Protein Albumin Prealbumin Triglycerides Cholesterol LDL Cholesterol Direct HDL Cholesterol Urine pH Urine WBC (Auto) Urine Creatinine Urine Total Protein Fluid Total Protein Vancomycin Trough Rheumatoid Factor Complement C4 Miscellaneous Test Crossmatch 09/15/16 09/15/16 09/15/16 05:00 05:17 12:45 WBC RBC Hgb Hct MCV MCH MCHC RDW Plt Count Lymph % (Auto) Simpson % (Auto) Lymph # Simpson # Baso # Seg Neutrophils % Seg Neuts % (Manual) Lymphocytes % (Manual) Monocytes % (Manual) Eosinophils % (Manual) Basophils % (Manual) Nucleated RBC % Seg Neutrophils # Seg Neutrophils # Man Lymphocytes # (Manual) Monocytes # (Manual) Eosinophils # (Manual) Basophils # (Manual) PT INR Fibrinogen dRVVT Confirm Interp Factor V Activity POC ABG pH POC ABG pCO2 POC ABG pO2 ABG pO2 ABG HCO3 ABG Base Excess ABG Hemoglobin Oxyhemoglobin Sodium Potassium 5.2 H Chloride Carbon Dioxide 18 L BUN 139 H Creatinine 3.7 H Glucose 227 H POC Glucose 226 H 244 H Lactic Acid Calcium 8.3 L Phosphorus Magnesium Direct Bilirubin AST ALT Alkaline Phosphatase Lactate Dehydrogenase Troponin T C-Reactive Protein Total Protein Albumin Prealbumin Triglycerides Cholesterol LDL Cholesterol Direct HDL Cholesterol Urine pH Urine WBC (Auto) Urine Creatinine Urine Total Protein Fluid Total Protein Vancomycin Trough Rheumatoid Factor Complement C4 Miscellaneous Test Crossmatch 09/15/16 09/15/16 09/15/16 14:32 17:33 23:35 WBC RBC Hgb Hct MCV MCH MCHC RDW Plt Count Lymph % (Auto) Simpson % (Auto) Lymph # Simpson # Baso # Seg Neutrophils % Seg Neuts % (Manual) Lymphocytes % (Manual) Monocytes % (Manual) Eosinophils % (Manual) Basophils % (Manual) Nucleated RBC % Seg Neutrophils # Seg Neutrophils # Man Lymphocytes # (Manual) Monocytes # (Manual) Eosinophils # (Manual) Basophils # (Manual) PT INR Fibrinogen dRVVT Confirm Interp Factor V Activity POC ABG pH POC ABG pCO2 27.7 L POC ABG pO2 120 H ABG pO2 ABG HCO3 ABG Base Excess ABG Hemoglobin Oxyhemoglobin Sodium Potassium Chloride Carbon Dioxide BUN Creatinine Glucose POC Glucose 232 H 167 H Lactic Acid Calcium Phosphorus Magnesium Direct Bilirubin AST ALT Alkaline Phosphatase Lactate Dehydrogenase Troponin T C-Reactive Protein Total Protein Albumin Prealbumin Triglycerides Cholesterol LDL Cholesterol Direct HDL Cholesterol Urine pH Urine WBC (Auto) Urine Creatinine Urine Total Protein Fluid Total Protein Vancomycin Trough Rheumatoid Factor Complement C4 Miscellaneous Test Crossmatch 09/16/16 09/16/16 09/16/16 03:58 10:27 10:27 WBC 19.0 H RBC 2.77 L Hgb 6.5 L Hct 20.9 L MCV 76 L MCH 23 L MCHC RDW 19.3 H Plt Count Lymph % (Auto) 11.0 L Simpson % (Auto) Lymph # Simpson # 1.1 H Baso # Seg Neutrophils % 82.5 H Seg Neuts % (Manual) Lymphocytes % (Manual) Monocytes % (Manual) Eosinophils % (Manual) Basophils % (Manual) Nucleated RBC % Seg Neutrophils # 15.7 H Seg Neutrophils # Man Lymphocytes # (Manual) Monocytes # (Manual) Eosinophils # (Manual) Basophils # (Manual) PT INR Fibrinogen dRVVT Confirm Interp Factor V Activity POC ABG pH POC ABG pCO2 POC ABG pO2 ABG pO2 ABG HCO3 ABG Base Excess ABG Hemoglobin Oxyhemoglobin Sodium Potassium Chloride 109.3 H Carbon Dioxide 18 L BUN 139 H Creatinine 4.1 H Glucose 144 H POC Glucose 146 H Lactic Acid Calcium 8.1 L Phosphorus Magnesium Direct Bilirubin AST ALT Alkaline Phosphatase Lactate Dehydrogenase Troponin T C-Reactive Protein Total Protein Albumin Prealbumin Triglycerides Cholesterol LDL Cholesterol Direct HDL Cholesterol Urine pH Urine WBC (Auto) Urine Creatinine Urine Total Protein Fluid Total Protein Vancomycin Trough Rheumatoid Factor Complement C4 Miscellaneous Test Crossmatch 09/16/16 09/16/16 09/16/16 12:04 12:10 13:55 WBC RBC Hgb Hct MCV MCH MCHC RDW Plt Count Lymph % (Auto) Simpson % (Auto) Lymph # Simpson # Baso # Seg Neutrophils % Seg Neuts % (Manual) Lymphocytes % (Manual) Monocytes % (Manual) Eosinophils % (Manual) Basophils % (Manual) Nucleated RBC % Seg Neutrophils # Seg Neutrophils # Man Lymphocytes # (Manual) Monocytes # (Manual) Eosinophils # (Manual) Basophils # (Manual) PT INR Fibrinogen dRVVT Confirm Interp Factor V Activity POC ABG pH POC ABG pCO2 32.9 L POC ABG pO2 ABG pO2 ABG HCO3 ABG Base Excess ABG Hemoglobin Oxyhemoglobin Sodium Potassium Chloride Carbon Dioxide BUN Creatinine Glucose POC Glucose 185 H Lactic Acid Calcium Phosphorus Magnesium Direct Bilirubin AST ALT Alkaline Phosphatase Lactate Dehydrogenase Troponin T C-Reactive Protein Total Protein Albumin Prealbumin Triglycerides Cholesterol LDL Cholesterol Direct HDL Cholesterol Urine pH Urine WBC (Auto) Urine Creatinine Urine Total Protein Fluid Total Protein Vancomycin Trough Rheumatoid Factor Complement C4 Miscellaneous Test Crossmatch See Detail 09/16/16 09/16/16 09/16/16 17:55 19:19 23:48 WBC RBC Hgb Hct MCV MCH MCHC RDW Plt Count Lymph % (Auto) Simpson % (Auto) Lymph # Simpson # Baso # Seg Neutrophils % Seg Neuts % (Manual) Lymphocytes % (Manual) Monocytes % (Manual) Eosinophils % (Manual) Basophils % (Manual) Nucleated RBC % Seg Neutrophils # Seg Neutrophils # Man Lymphocytes # (Manual) Monocytes # (Manual) Eosinophils # (Manual) Basophils # (Manual) PT INR Fibrinogen dRVVT Confirm Interp Factor V Activity POC ABG pH POC ABG pCO2 POC ABG pO2 ABG pO2 ABG HCO3 ABG Base Excess ABG Hemoglobin Oxyhemoglobin Sodium Potassium Chloride Carbon Dioxide BUN Creatinine Glucose POC Glucose 222 H 107 H Lactic Acid Calcium Phosphorus Magnesium Direct Bilirubin AST ALT Alkaline Phosphatase Lactate Dehydrogenase Troponin T C-Reactive Protein Total Protein Albumin Prealbumin Triglycerides Cholesterol LDL Cholesterol Direct HDL Cholesterol Urine pH Urine WBC (Auto) Urine Creatinine 47.4 H Urine Total Protein 16 H Fluid Total Protein Vancomycin Trough Rheumatoid Factor Complement C4 Miscellaneous Test Crossmatch 09/17/16 09/17/16 09/17/16 03:45 03:45 04:55 WBC 19.6 H RBC 3.41 L Hgb 8.5 L Hct 26.7 L MCV 78 L MCH 25 L MCHC RDW 19.9 H Plt Count Lymph % (Auto) 9.3 L Simpson % (Auto) Lymph # Simpson # 1.2 H Baso # Seg Neutrophils % 83.9 H Seg Neuts % (Manual) Lymphocytes % (Manual) Monocytes % (Manual) Eosinophils % (Manual) Basophils % (Manual) Nucleated RBC % Seg Neutrophils # 16.4 H Seg Neutrophils # Man Lymphocytes # (Manual) Monocytes # (Manual) Eosinophils # (Manual) Basophils # (Manual) PT INR Fibrinogen dRVVT Confirm Interp Factor V Activity POC ABG pH POC ABG pCO2 POC ABG pO2 ABG pO2 ABG HCO3 ABG Base Excess ABG Hemoglobin Oxyhemoglobin Sodium 146 H Potassium 5.1 H Chloride 110.9 H Carbon Dioxide 16 L BUN 146 H Creatinine 4.0 H Glucose 108 H POC Glucose 133 H Lactic Acid Calcium Phosphorus Magnesium 3.00 H Direct Bilirubin AST ALT Alkaline Phosphatase Lactate Dehydrogenase Troponin T C-Reactive Protein Total Protein Albumin Prealbumin Triglycerides Cholesterol LDL Cholesterol Direct HDL Cholesterol Urine pH Urine WBC (Auto) Urine Creatinine Urine Total Protein Fluid Total Protein Vancomycin Trough Rheumatoid Factor Complement C4 Miscellaneous Test Crossmatch 09/17/16 09/17/16 09/17/16 11:15 17:33 23:47 WBC RBC Hgb Hct MCV MCH MCHC RDW Plt Count Lymph % (Auto) Simpson % (Auto) Lymph # Simpson # Baso # Seg Neutrophils % Seg Neuts % (Manual) Lymphocytes % (Manual) Monocytes % (Manual) Eosinophils % (Manual) Basophils % (Manual) Nucleated RBC % Seg Neutrophils # Seg Neutrophils # Man Lymphocytes # (Manual) Monocytes # (Manual) Eosinophils # (Manual) Basophils # (Manual) PT INR Fibrinogen dRVVT Confirm Interp Factor V Activity POC ABG pH POC ABG pCO2 POC ABG pO2 ABG pO2 ABG HCO3 ABG Base Excess ABG Hemoglobin Oxyhemoglobin Sodium Potassium Chloride Carbon Dioxide BUN Creatinine Glucose POC Glucose 176 H 246 H 148 H Lactic Acid Calcium Phosphorus Magnesium Direct Bilirubin AST ALT Alkaline Phosphatase Lactate Dehydrogenase Troponin T C-Reactive Protein Total Protein Albumin Prealbumin Triglycerides Cholesterol LDL Cholesterol Direct HDL Cholesterol Urine pH Urine WBC (Auto) Urine Creatinine Urine Total Protein Fluid Total Protein Vancomycin Trough Rheumatoid Factor Complement C4 Miscellaneous Test Crossmatch 09/18/16 09/18/16 09/18/16 05:33 08:31 08:31 WBC 18.0 H RBC 3.17 L Hgb 9.0 L Hct 25.7 L MCV MCH MCHC 35 H RDW 20.4 H Plt Count Lymph % (Auto) Simpson % (Auto) Lymph # Simpson # Baso # Seg Neutrophils % Seg Neuts % (Manual) Lymphocytes % (Manual) Monocytes % (Manual) Eosinophils % (Manual) Basophils % (Manual) Nucleated RBC % Seg Neutrophils # Seg Neutrophils # Man Lymphocytes # (Manual) Monocytes # (Manual) Eosinophils # (Manual) Basophils # (Manual) PT INR Fibrinogen dRVVT Confirm Interp Factor V Activity POC ABG pH POC ABG pCO2 POC ABG pO2 ABG pO2 ABG HCO3 ABG Base Excess ABG Hemoglobin Oxyhemoglobin Sodium Potassium Chloride Carbon Dioxide 15 L BUN 124 H Creatinine 3.8 H Glucose POC Glucose 120 H Lactic Acid Calcium 8.1 L Phosphorus Magnesium Direct Bilirubin AST ALT Alkaline Phosphatase Lactate Dehydrogenase Troponin T C-Reactive Protein Total Protein Albumin Prealbumin Triglycerides Cholesterol LDL Cholesterol Direct HDL Cholesterol Urine pH Urine WBC (Auto) Urine Creatinine Urine Total Protein Fluid Total Protein Vancomycin Trough Rheumatoid Factor Complement C4 Miscellaneous Test Crossmatch 09/18/16 09/18/16 09/18/16 12:03 15:34 17:50 WBC RBC Hgb Hct MCV MCH MCHC RDW Plt Count Lymph % (Auto) Simpson % (Auto) Lymph # Simpson # Baso # Seg Neutrophils % Seg Neuts % (Manual) Lymphocytes % (Manual) Monocytes % (Manual) Eosinophils % (Manual) Basophils % (Manual) Nucleated RBC % Seg Neutrophils # Seg Neutrophils # Man Lymphocytes # (Manual) Monocytes # (Manual) Eosinophils # (Manual) Basophils # (Manual) PT INR Fibrinogen dRVVT Confirm Interp Factor V Activity POC ABG pH POC ABG pCO2 25.7 L POC ABG pO2 66 L ABG pO2 ABG HCO3 ABG Base Excess ABG Hemoglobin Oxyhemoglobin Sodium Potassium Chloride Carbon Dioxide BUN Creatinine Glucose POC Glucose 156 H 220 H Lactic Acid Calcium Phosphorus Magnesium Direct Bilirubin AST ALT Alkaline Phosphatase Lactate Dehydrogenase Troponin T C-Reactive Protein Total Protein Albumin Prealbumin Triglycerides Cholesterol LDL Cholesterol Direct HDL Cholesterol Urine pH Urine WBC (Auto) Urine Creatinine Urine Total Protein Fluid Total Protein Vancomycin Trough Rheumatoid Factor Complement C4 Miscellaneous Test Crossmatch 09/19/16 09/19/16 09/19/16 06:21 09:50 09:50 WBC 17.1 H RBC 3.49 L Hgb 9.0 L Hct 28.1 L MCV MCH 26 L MCHC RDW 20.8 H Plt Count Lymph % (Auto) 11.5 L Simpson % (Auto) 7.5 H Lymph # Simpson # 1.3 H Baso # Seg Neutrophils % 79.8 H Seg Neuts % (Manual) Lymphocytes % (Manual) Monocytes % (Manual) Eosinophils % (Manual) Basophils % (Manual) Nucleated RBC % Seg Neutrophils # 13.7 H Seg Neutrophils # Man Lymphocytes # (Manual) Monocytes # (Manual) Eosinophils # (Manual) Basophils # (Manual) PT INR Fibrinogen dRVVT Confirm Interp Factor V Activity POC ABG pH POC ABG pCO2 POC ABG pO2 ABG pO2 ABG HCO3 ABG Base Excess ABG Hemoglobin Oxyhemoglobin Sodium Potassium Chloride 108.6 H Carbon Dioxide 15 L BUN 125 H Creatinine 4.1 H Glucose 124 H POC Glucose 119 H Lactic Acid Calcium Phosphorus Magnesium Direct Bilirubin AST ALT Alkaline Phosphatase Lactate Dehydrogenase Troponin T C-Reactive Protein Total Protein Albumin Prealbumin Triglycerides Cholesterol LDL Cholesterol Direct HDL Cholesterol Urine pH Urine WBC (Auto) Urine Creatinine Urine Total Protein Fluid Total Protein Vancomycin Trough Rheumatoid Factor Complement C4 Miscellaneous Test Crossmatch 09/19/16 09/19/16 09/19/16 11:25 17:53 23:36 WBC RBC Hgb Hct MCV MCH MCHC RDW Plt Count Lymph % (Auto) Simpson % (Auto) Lymph # Simpson # Baso # Seg Neutrophils % Seg Neuts % (Manual) Lymphocytes % (Manual) Monocytes % (Manual) Eosinophils % (Manual) Basophils % (Manual) Nucleated RBC % Seg Neutrophils # Seg Neutrophils # Man Lymphocytes # (Manual) Monocytes # (Manual) Eosinophils # (Manual) Basophils # (Manual) PT INR Fibrinogen dRVVT Confirm Interp Factor V Activity POC ABG pH POC ABG pCO2 POC ABG pO2 ABG pO2 ABG HCO3 ABG Base Excess ABG Hemoglobin Oxyhemoglobin Sodium Potassium Chloride Carbon Dioxide BUN Creatinine Glucose POC Glucose 160 H 245 H 121 H Lactic Acid Calcium Phosphorus Magnesium Direct Bilirubin AST ALT Alkaline Phosphatase Lactate Dehydrogenase Troponin T C-Reactive Protein Total Protein Albumin Prealbumin Triglycerides Cholesterol LDL Cholesterol Direct HDL Cholesterol Urine pH Urine WBC (Auto) Urine Creatinine Urine Total Protein Fluid Total Protein Vancomycin Trough Rheumatoid Factor Complement C4 Miscellaneous Test Crossmatch 09/20/16 09/20/16 09/20/16 04:10 04:10 04:10 WBC 17.0 H RBC 3.21 L Hgb 8.2 L Hct 25.5 L MCV MCH 26 L MCHC RDW 20.9 H Plt Count Lymph % (Auto) Simpson % (Auto) Lymph # Simpson # Baso # Seg Neutrophils % Seg Neuts % (Manual) Lymphocytes % (Manual) Monocytes % (Manual) Eosinophils % (Manual) Basophils % (Manual) Nucleated RBC % Seg Neutrophils # Seg Neutrophils # Man Lymphocytes # (Manual) Monocytes # (Manual) Eosinophils # (Manual) Basophils # (Manual) PT INR Fibrinogen dRVVT Confirm Interp Factor V Activity POC ABG pH POC ABG pCO2 POC ABG pO2 ABG pO2 ABG HCO3 ABG Base Excess ABG Hemoglobin Oxyhemoglobin Sodium Potassium Chloride 111.0 H Carbon Dioxide 16 L BUN 129 H Creatinine 3.7 H Glucose 115 H POC Glucose Lactic Acid Calcium 8.2 L Phosphorus Magnesium Direct Bilirubin AST ALT Alkaline Phosphatase Lactate Dehydrogenase Troponin T C-Reactive Protein Total Protein Albumin Prealbumin Triglycerides 243 H Cholesterol LDL Cholesterol Direct HDL Cholesterol Urine pH Urine WBC (Auto) Urine Creatinine Urine Total Protein Fluid Total Protein Vancomycin Trough Rheumatoid Factor Complement C4 Miscellaneous Test Crossmatch 09/20/16 09/20/16 09/20/16 05:40 11:52 16:50 WBC RBC Hgb Hct MCV MCH MCHC RDW Plt Count Lymph % (Auto) Simpson % (Auto) Lymph # Simpson # Baso # Seg Neutrophils % Seg Neuts % (Manual) Lymphocytes % (Manual) Monocytes % (Manual) Eosinophils % (Manual) Basophils % (Manual) Nucleated RBC % Seg Neutrophils # Seg Neutrophils # Man Lymphocytes # (Manual) Monocytes # (Manual) Eosinophils # (Manual) Basophils # (Manual) PT INR Fibrinogen dRVVT Confirm Interp Factor V Activity POC ABG pH POC ABG pCO2 POC ABG pO2 ABG pO2 ABG HCO3 ABG Base Excess ABG Hemoglobin Oxyhemoglobin Sodium Potassium Chloride Carbon Dioxide BUN Creatinine Glucose POC Glucose 131 H 183 H 236 H Lactic Acid Calcium Phosphorus Magnesium Direct Bilirubin AST ALT Alkaline Phosphatase Lactate Dehydrogenase Troponin T C-Reactive Protein Total Protein Albumin Prealbumin Triglycerides Cholesterol LDL Cholesterol Direct HDL Cholesterol Urine pH Urine WBC (Auto) Urine Creatinine Urine Total Protein Fluid Total Protein Vancomycin Trough Rheumatoid Factor Complement C4 Miscellaneous Test Crossmatch 09/20/16 09/21/16 09/21/16 23:51 03:30 04:44 WBC RBC Hgb Hct MCV MCH MCHC RDW Plt Count Lymph % (Auto) Simpson % (Auto) Lymph # Simpson # Baso # Seg Neutrophils % Seg Neuts % (Manual) Lymphocytes % (Manual) Monocytes % (Manual) Eosinophils % (Manual) Basophils % (Manual) Nucleated RBC % Seg Neutrophils # Seg Neutrophils # Man Lymphocytes # (Manual) Monocytes # (Manual) Eosinophils # (Manual) Basophils # (Manual) PT INR Fibrinogen dRVVT Confirm Interp Factor V Activity POC ABG pH POC ABG pCO2 POC ABG pO2 ABG pO2 ABG HCO3 ABG Base Excess ABG Hemoglobin Oxyhemoglobin Sodium Potassium Chloride Carbon Dioxide BUN Creatinine Glucose POC Glucose 114 H 141 H Lactic Acid Calcium Phosphorus Magnesium 2.70 H Direct Bilirubin AST ALT Alkaline Phosphatase Lactate Dehydrogenase Troponin T C-Reactive Protein Total Protein Albumin Prealbumin Triglycerides Cholesterol LDL Cholesterol Direct HDL Cholesterol Urine pH Urine WBC (Auto) Urine Creatinine Urine Total Protein Fluid Total Protein Vancomycin Trough Rheumatoid Factor Complement C4 Miscellaneous Test Crossmatch 09/21/16 09/21/16 09/21/16 07:45 07:45 10:01 WBC 13.8 H RBC 2.94 L Hgb 7.5 L Hct 23.5 L MCV MCH 26 L MCHC RDW 21.2 H Plt Count Lymph % (Auto) 6.9 L Simpson % (Auto) 9.4 H Lymph # 0.9 L Simpson # 1.3 H Baso # Seg Neutrophils % 83.2 H Seg Neuts % (Manual) Lymphocytes % (Manual) Monocytes % (Manual) Eosinophils % (Manual) Basophils % (Manual) Nucleated RBC % Seg Neutrophils # 11.5 H Seg Neutrophils # Man Lymphocytes # (Manual) Monocytes # (Manual) Eosinophils # (Manual) Basophils # (Manual) PT INR Fibrinogen dRVVT Confirm Interp Factor V Activity POC ABG pH 7.308 L POC ABG pCO2 31.9 L POC ABG pO2 148 H ABG pO2 ABG HCO3 ABG Base Excess ABG Hemoglobin Oxyhemoglobin Sodium 147 H Potassium Chloride 114.2 H Carbon Dioxide 15 L BUN 120 H Creatinine 3.9 H Glucose 156 H POC Glucose Lactic Acid Calcium 8.2 L Phosphorus Magnesium Direct Bilirubin AST ALT Alkaline Phosphatase Lactate Dehydrogenase Troponin T C-Reactive Protein Total Protein Albumin Prealbumin Triglycerides Cholesterol LDL Cholesterol Direct HDL Cholesterol Urine pH Urine WBC (Auto) Urine Creatinine Urine Total Protein Fluid Total Protein Vancomycin Trough Rheumatoid Factor Complement C4 Miscellaneous Test Crossmatch 09/21/16 09/21/16 09/21/16 12:00 12:03 13:00 WBC RBC Hgb Hct MCV MCH MCHC RDW Plt Count Lymph % (Auto) Simpson % (Auto) Lymph # Simpson # Baso # Seg Neutrophils % Seg Neuts % (Manual) Lymphocytes % (Manual) Monocytes % (Manual) Eosinophils % (Manual) Basophils % (Manual) Nucleated RBC % Seg Neutrophils # Seg Neutrophils # Man Lymphocytes # (Manual) Monocytes # (Manual) Eosinophils # (Manual) Basophils # (Manual) PT INR Fibrinogen dRVVT Confirm Interp Factor V Activity POC ABG pH POC ABG pCO2 POC ABG pO2 ABG pO2 ABG HCO3 ABG Base Excess ABG Hemoglobin Oxyhemoglobin Sodium Potassium Chloride Carbon Dioxide BUN Creatinine Glucose POC Glucose 163 H Lactic Acid Calcium Phosphorus Magnesium Direct Bilirubin AST ALT Alkaline Phosphatase Lactate Dehydrogenase Troponin T C-Reactive Protein Total Protein Albumin Prealbumin Triglycerides Cholesterol LDL Cholesterol Direct HDL Cholesterol Urine pH Urine WBC (Auto) Urine Creatinine 54.8 H Urine Total Protein Fluid Total Protein Vancomycin Trough 2.3 L Rheumatoid Factor Complement C4 Miscellaneous Test Crossmatch 09/21/16 09/21/16 09/22/16 16:51 23:17 06:27 WBC RBC Hgb Hct MCV MCH MCHC RDW Plt Count Lymph % (Auto) Simpson % (Auto) Lymph # Simpson # Baso # Seg Neutrophils % Seg Neuts % (Manual) Lymphocytes % (Manual) Monocytes % (Manual) Eosinophils % (Manual) Basophils % (Manual) Nucleated RBC % Seg Neutrophils # Seg Neutrophils # Man Lymphocytes # (Manual) Monocytes # (Manual) Eosinophils # (Manual) Basophils # (Manual) PT INR Fibrinogen dRVVT Confirm Interp Factor V Activity POC ABG pH POC ABG pCO2 POC ABG pO2 ABG pO2 ABG HCO3 ABG Base Excess ABG Hemoglobin Oxyhemoglobin Sodium Potassium Chloride Carbon Dioxide BUN Creatinine Glucose POC Glucose 206 H 114 H 115 H Lactic Acid Calcium Phosphorus Magnesium Direct Bilirubin AST ALT Alkaline Phosphatase Lactate Dehydrogenase Troponin T C-Reactive Protein Total Protein Albumin Prealbumin Triglycerides Cholesterol LDL Cholesterol Direct HDL Cholesterol Urine pH Urine WBC (Auto) Urine Creatinine Urine Total Protein Fluid Total Protein Vancomycin Trough Rheumatoid Factor Complement C4 Miscellaneous Test Crossmatch 09/22/16 09/22/16 09/22/16 07:50 07:50 12:00 WBC 17.8 H RBC 3.04 L Hgb 8.0 L Hct 24.7 L MCV MCH 26 L MCHC RDW 21.6 H Plt Count Lymph % (Auto) Simpson % (Auto) Lymph # Simpson # Baso # Seg Neutrophils % Seg Neuts % (Manual) Lymphocytes % (Manual) Monocytes % (Manual) Eosinophils % (Manual) Basophils % (Manual) Nucleated RBC % Seg Neutrophils # Seg Neutrophils # Man Lymphocytes # (Manual) Monocytes # (Manual) Eosinophils # (Manual) Basophils # (Manual) PT INR Fibrinogen dRVVT Confirm Interp Factor V Activity POC ABG pH POC ABG pCO2 POC ABG pO2 ABG pO2 ABG HCO3 ABG Base Excess ABG Hemoglobin Oxyhemoglobin Sodium 150 H Potassium Chloride 118.2 H Carbon Dioxide 14 L BUN 111 H Creatinine 3.7 H Glucose 157 H POC Glucose 183 H Lactic Acid Calcium Phosphorus Magnesium Direct Bilirubin AST ALT Alkaline Phosphatase Lactate Dehydrogenase Troponin T C-Reactive Protein Total Protein Albumin Prealbumin Triglycerides Cholesterol LDL Cholesterol Direct HDL Cholesterol Urine pH Urine WBC (Auto) Urine Creatinine Urine Total Protein Fluid Total Protein Vancomycin Trough Rheumatoid Factor Complement C4 Miscellaneous Test Crossmatch 09/22/16 09/22/16 09/23/16 17:29 23:10 05:00 WBC 19.2 H RBC 3.13 L Hgb 8.0 L Hct 25.2 L MCV MCH 26 L MCHC RDW 22.1 H Plt Count Lymph % (Auto) Simpson % (Auto) Lymph # Simpson # Baso # Seg Neutrophils % Seg Neuts % (Manual) 92.0 H Lymphocytes % (Manual) 3.0 L Monocytes % (Manual) Eosinophils % (Manual) Basophils % (Manual) Nucleated RBC % Seg Neutrophils # Seg Neutrophils # Man 17.7 H Lymphocytes # (Manual) 0.6 L Monocytes # (Manual) Eosinophils # (Manual) Basophils # (Manual) PT INR Fibrinogen dRVVT Confirm Interp Factor V Activity POC ABG pH POC ABG pCO2 POC ABG pO2 ABG pO2 ABG HCO3 ABG Base Excess ABG Hemoglobin Oxyhemoglobin Sodium Potassium Chloride Carbon Dioxide BUN Creatinine Glucose POC Glucose 197 H 169 H Lactic Acid Calcium Phosphorus Magnesium Direct Bilirubin AST ALT Alkaline Phosphatase Lactate Dehydrogenase Troponin T C-Reactive Protein Total Protein Albumin Prealbumin Triglycerides Cholesterol LDL Cholesterol Direct HDL Cholesterol Urine pH Urine WBC (Auto) Urine Creatinine Urine Total Protein Fluid Total Protein Vancomycin Trough Rheumatoid Factor Complement C4 Miscellaneous Test Crossmatch 09/23/16 09/23/16 09/23/16 05:00 05:00 05:10 WBC RBC Hgb Hct MCV MCH MCHC RDW Plt Count Lymph % (Auto) Simpson % (Auto) Lymph # Simpson # Baso # Seg Neutrophils % Seg Neuts % (Manual) Lymphocytes % (Manual) Monocytes % (Manual) Eosinophils % (Manual) Basophils % (Manual) Nucleated RBC % Seg Neutrophils # Seg Neutrophils # Man Lymphocytes # (Manual) Monocytes # (Manual) Eosinophils # (Manual) Basophils # (Manual) PT INR Fibrinogen dRVVT Confirm Interp Factor V Activity POC ABG pH POC ABG pCO2 POC ABG pO2 ABG pO2 ABG HCO3 ABG Base Excess ABG Hemoglobin Oxyhemoglobin Sodium 147 H Potassium 3.2 L Chloride 115.7 H Carbon Dioxide 13 L BUN 111 H Creatinine 3.8 H Glucose 194 H POC Glucose 188 H Lactic Acid Calcium 7.3 L D Phosphorus Magnesium Direct Bilirubin AST ALT Alkaline Phosphatase Lactate Dehydrogenase Troponin T C-Reactive Protein 3.20 H Total Protein Albumin Prealbumin Triglycerides Cholesterol LDL Cholesterol Direct HDL Cholesterol Urine pH Urine WBC (Auto) Urine Creatinine Urine Total Protein Fluid Total Protein Vancomycin Trough Rheumatoid Factor Complement C4 Miscellaneous Test Crossmatch 09/23/16 09/23/16 09/23/16 11:37 12:29 18:01 WBC RBC Hgb Hct MCV MCH MCHC RDW Plt Count Lymph % (Auto) Simpson % (Auto) Lymph # Simpson # Baso # Seg Neutrophils % Seg Neuts % (Manual) Lymphocytes % (Manual) Monocytes % (Manual) Eosinophils % (Manual) Basophils % (Manual) Nucleated RBC % Seg Neutrophils # Seg Neutrophils # Man Lymphocytes # (Manual) Monocytes # (Manual) Eosinophils # (Manual) Basophils # (Manual) PT INR Fibrinogen dRVVT Confirm Interp Factor V Activity POC ABG pH POC ABG pCO2 18.9 L POC ABG pO2 143 H ABG pO2 ABG HCO3 ABG Base Excess ABG Hemoglobin Oxyhemoglobin Sodium Potassium Chloride Carbon Dioxide BUN Creatinine Glucose POC Glucose 153 H 108 H Lactic Acid Calcium Phosphorus Magnesium Direct Bilirubin AST ALT Alkaline Phosphatase Lactate Dehydrogenase Troponin T C-Reactive Protein Total Protein Albumin Prealbumin Triglycerides Cholesterol LDL Cholesterol Direct HDL Cholesterol Urine pH Urine WBC (Auto) Urine Creatinine Urine Total Protein Fluid Total Protein Vancomycin Trough Rheumatoid Factor Complement C4 Miscellaneous Test Crossmatch 09/23/16 09/23/16 09/24/16 21:19 23:43 05:16 WBC RBC Hgb Hct MCV MCH MCHC RDW Plt Count Lymph % (Auto) Simpson % (Auto) Lymph # Simpson # Baso # Seg Neutrophils % Seg Neuts % (Manual) Lymphocytes % (Manual) Monocytes % (Manual) Eosinophils % (Manual) Basophils % (Manual) Nucleated RBC % Seg Neutrophils # Seg Neutrophils # Man Lymphocytes # (Manual) Monocytes # (Manual) Eosinophils # (Manual) Basophils # (Manual) PT INR Fibrinogen dRVVT Confirm Interp Factor V Activity POC ABG pH POC ABG pCO2 17.3 L POC ABG pO2 112 H ABG pO2 ABG HCO3 ABG Base Excess ABG Hemoglobin Oxyhemoglobin Sodium Potassium Chloride Carbon Dioxide BUN Creatinine Glucose POC Glucose 143 H 164 H Lactic Acid Calcium Phosphorus Magnesium Direct Bilirubin AST ALT Alkaline Phosphatase Lactate Dehydrogenase Troponin T C-Reactive Protein Total Protein Albumin Prealbumin Triglycerides Cholesterol LDL Cholesterol Direct HDL Cholesterol Urine pH Urine WBC (Auto) Urine Creatinine Urine Total Protein Fluid Total Protein Vancomycin Trough Rheumatoid Factor Complement C4 Miscellaneous Test Crossmatch 09/24/16 09/24/16 09/24/16 05:21 11:58 17:06 WBC RBC Hgb Hct MCV MCH MCHC RDW Plt Count Lymph % (Auto) Simpson % (Auto) Lymph # Simpson # Baso # Seg Neutrophils % Seg Neuts % (Manual) Lymphocytes % (Manual) Monocytes % (Manual) Eosinophils % (Manual) Basophils % (Manual) Nucleated RBC % Seg Neutrophils # Seg Neutrophils # Man Lymphocytes # (Manual) Monocytes # (Manual) Eosinophils # (Manual) Basophils # (Manual) PT INR Fibrinogen dRVVT Confirm Interp Factor V Activity POC ABG pH POC ABG pCO2 POC ABG pO2 ABG pO2 ABG HCO3 ABG Base Excess ABG Hemoglobin Oxyhemoglobin Sodium Potassium Chloride Carbon Dioxide 10 L BUN 103 H Creatinine 4.3 H Glucose 163 H POC Glucose 173 H 167 H Lactic Acid Calcium 6.5 L Phosphorus Magnesium Direct Bilirubin AST ALT Alkaline Phosphatase Lactate Dehydrogenase Troponin T C-Reactive Protein Total Protein Albumin Prealbumin Triglycerides Cholesterol LDL Cholesterol Direct HDL Cholesterol Urine pH Urine WBC (Auto) Urine Creatinine Urine Total Protein Fluid Total Protein Vancomycin Trough Rheumatoid Factor Complement C4 Miscellaneous Test Crossmatch 09/24/16 09/24/16 09/24/16 20:15 21:02 23:48 WBC RBC Hgb Hct MCV MCH MCHC RDW Plt Count Lymph % (Auto) Simpson % (Auto) Lymph # Simpson # Baso # Seg Neutrophils % Seg Neuts % (Manual) Lymphocytes % (Manual) Monocytes % (Manual) Eosinophils % (Manual) Basophils % (Manual) Nucleated RBC % Seg Neutrophils # Seg Neutrophils # Man Lymphocytes # (Manual) Monocytes # (Manual) Eosinophils # (Manual) Basophils # (Manual) PT INR Fibrinogen dRVVT Confirm Interp Factor V Activity POC ABG pH 7.288 L POC ABG pCO2 30.2 L 21.5 L POC ABG pO2 32 L 39 L ABG pO2 ABG HCO3 ABG Base Excess ABG Hemoglobin Oxyhemoglobin Sodium Potassium Chloride Carbon Dioxide BUN Creatinine Glucose POC Glucose 109 H Lactic Acid Calcium Phosphorus Magnesium Direct Bilirubin AST ALT Alkaline Phosphatase Lactate Dehydrogenase Troponin T C-Reactive Protein Total Protein Albumin Prealbumin Triglycerides Cholesterol LDL Cholesterol Direct HDL Cholesterol Urine pH Urine WBC (Auto) Urine Creatinine Urine Total Protein Fluid Total Protein Vancomycin Trough Rheumatoid Factor Complement C4 Miscellaneous Test Crossmatch 09/25/16 09/25/16 09/25/16 04:20 04:20 04:20 WBC RBC 2.58 L Hgb 7.0 L Hct 21.0 L MCV MCH 27 L MCHC RDW 23.8 H Plt Count Lymph % (Auto) Simpson % (Auto) Lymph # Simpson # Baso # Seg Neutrophils % Seg Neuts % (Manual) Lymphocytes % (Manual) 12.0 L Monocytes % (Manual) Eosinophils % (Manual) 7.0 H Basophils % (Manual) 2.0 H Nucleated RBC % Seg Neutrophils # Seg Neutrophils # Man Lymphocytes # (Manual) 0.9 L Monocytes # (Manual) Eosinophils # (Manual) 0.5 H Basophils # (Manual) PT INR Fibrinogen dRVVT Confirm Interp Factor V Activity POC ABG pH POC ABG pCO2 POC ABG pO2 ABG pO2 ABG HCO3 ABG Base Excess ABG Hemoglobin Oxyhemoglobin Sodium Potassium Chloride Carbon Dioxide 15 L BUN 72 H Creatinine 3.8 H Glucose POC Glucose Lactic Acid Calcium 6.0 L Phosphorus 4.60 H Magnesium 1.60 L Direct Bilirubin AST ALT Alkaline Phosphatase Lactate Dehydrogenase Troponin T C-Reactive Protein Total Protein Albumin Prealbumin Triglycerides Cholesterol LDL Cholesterol Direct HDL Cholesterol Urine pH Urine WBC (Auto) Urine Creatinine Urine Total Protein Fluid Total Protein Vancomycin Trough Rheumatoid Factor Complement C4 Miscellaneous Test Crossmatch 09/25/16 09/25/16 09/25/16 04:57 08:02 10:30 WBC RBC Hgb Hct MCV MCH MCHC RDW Plt Count Lymph % (Auto) Simpson % (Auto) Lymph # Simpson # Baso # Seg Neutrophils % Seg Neuts % (Manual) Lymphocytes % (Manual) Monocytes % (Manual) Eosinophils % (Manual) Basophils % (Manual) Nucleated RBC % Seg Neutrophils # Seg Neutrophils # Man Lymphocytes # (Manual) Monocytes # (Manual) Eosinophils # (Manual) Basophils # (Manual) PT INR Fibrinogen dRVVT Confirm Interp Factor V Activity POC ABG pH POC ABG pCO2 24.7 L POC ABG pO2 152 H ABG pO2 ABG HCO3 ABG Base Excess ABG Hemoglobin Oxyhemoglobin Sodium Potassium Chloride Carbon Dioxide BUN Creatinine Glucose POC Glucose 113 H Lactic Acid Calcium Phosphorus Magnesium Direct Bilirubin AST ALT Alkaline Phosphatase Lactate Dehydrogenase Troponin T C-Reactive Protein Total Protein Albumin Prealbumin Triglycerides Cholesterol LDL Cholesterol Direct HDL Cholesterol Urine pH Urine WBC (Auto) Urine Creatinine Urine Total Protein Fluid Total Protein Vancomycin Trough Rheumatoid Factor Complement C4 Miscellaneous Test Crossmatch See Detail 09/25/16 09/25/16 09/25/16 12:05 17:44 23:47 WBC RBC Hgb Hct MCV MCH MCHC RDW Plt Count Lymph % (Auto) Simpson % (Auto) Lymph # Simpson # Baso # Seg Neutrophils % Seg Neuts % (Manual) Lymphocytes % (Manual) Monocytes % (Manual) Eosinophils % (Manual) Basophils % (Manual) Nucleated RBC % Seg Neutrophils # Seg Neutrophils # Man Lymphocytes # (Manual) Monocytes # (Manual) Eosinophils # (Manual) Basophils # (Manual) PT INR Fibrinogen dRVVT Confirm Interp Factor V Activity POC ABG pH POC ABG pCO2 POC ABG pO2 ABG pO2 ABG HCO3 ABG Base Excess ABG Hemoglobin Oxyhemoglobin Sodium Potassium Chloride Carbon Dioxide BUN Creatinine Glucose POC Glucose 117 H 119 H 150 H Lactic Acid Calcium Phosphorus Magnesium Direct Bilirubin AST ALT Alkaline Phosphatase Lactate Dehydrogenase Troponin T C-Reactive Protein Total Protein Albumin Prealbumin Triglycerides Cholesterol LDL Cholesterol Direct HDL Cholesterol Urine pH Urine WBC (Auto) Urine Creatinine Urine Total Protein Fluid Total Protein Vancomycin Trough Rheumatoid Factor Complement C4 Miscellaneous Test Crossmatch 09/26/16 09/26/16 09/26/16 04:25 04:25 04:25 WBC RBC 2.65 L Hgb 7.4 L Hct 21.6 L MCV MCH MCHC RDW 22.5 H Plt Count Lymph % (Auto) Simpson % (Auto) Lymph # Simpson # Baso # Seg Neutrophils % Seg Neuts % (Manual) Lymphocytes % (Manual) 6.0 L Monocytes % (Manual) Eosinophils % (Manual) 11.0 H Basophils % (Manual) Nucleated RBC % Seg Neutrophils # Seg Neutrophils # Man Lymphocytes # (Manual) 0.4 L Monocytes # (Manual) Eosinophils # (Manual) 0.6 H Basophils # (Manual) PT INR Fibrinogen dRVVT Confirm Interp Factor V Activity POC ABG pH POC ABG pCO2 POC ABG pO2 ABG pO2 ABG HCO3 ABG Base Excess ABG Hemoglobin Oxyhemoglobin Sodium Potassium Chloride 97.0 L Carbon Dioxide 19 L BUN 43 H Creatinine 2.6 H Glucose 130 H POC Glucose Lactic Acid 4.40 H* Calcium 6.7 L Phosphorus Magnesium Direct Bilirubin AST ALT Alkaline Phosphatase Lactate Dehydrogenase Troponin T C-Reactive Protein Total Protein Albumin Prealbumin Triglycerides Cholesterol LDL Cholesterol Direct HDL Cholesterol Urine pH Urine WBC (Auto) Urine Creatinine Urine Total Protein Fluid Total Protein Vancomycin Trough Rheumatoid Factor Complement C4 Miscellaneous Test Crossmatch 09/26/16 09/26/16 09/26/16 05:20 11:44 12:12 WBC RBC Hgb Hct MCV MCH MCHC RDW Plt Count Lymph % (Auto) Simpson % (Auto) Lymph # Simpson # Baso # Seg Neutrophils % Seg Neuts % (Manual) Lymphocytes % (Manual) Monocytes % (Manual) Eosinophils % (Manual) Basophils % (Manual) Nucleated RBC % Seg Neutrophils # Seg Neutrophils # Man Lymphocytes # (Manual) Monocytes # (Manual) Eosinophils # (Manual) Basophils # (Manual) PT INR Fibrinogen dRVVT Confirm Interp Factor V Activity POC ABG pH POC ABG pCO2 27.0 L POC ABG pO2 69 L ABG pO2 ABG HCO3 ABG Base Excess ABG Hemoglobin Oxyhemoglobin Sodium Potassium Chloride Carbon Dioxide BUN Creatinine Glucose POC Glucose 121 H 128 H Lactic Acid Calcium Phosphorus Magnesium Direct Bilirubin AST ALT Alkaline Phosphatase Lactate Dehydrogenase Troponin T C-Reactive Protein Total Protein Albumin Prealbumin Triglycerides Cholesterol LDL Cholesterol Direct HDL Cholesterol Urine pH Urine WBC (Auto) Urine Creatinine Urine Total Protein Fluid Total Protein Vancomycin Trough Rheumatoid Factor Complement C4 Miscellaneous Test Crossmatch 09/26/16 09/26/16 09/27/16 18:31 23:40 08:20 WBC RBC Hgb Hct MCV MCH MCHC RDW Plt Count Lymph % (Auto) Simpson % (Auto) Lymph # Simpson # Baso # Seg Neutrophils % Seg Neuts % (Manual) Lymphocytes % (Manual) Monocytes % (Manual) Eosinophils % (Manual) Basophils % (Manual) Nucleated RBC % Seg Neutrophils # Seg Neutrophils # Man Lymphocytes # (Manual) Monocytes # (Manual) Eosinophils # (Manual) Basophils # (Manual) PT INR Fibrinogen dRVVT Confirm Interp Factor V Activity POC ABG pH POC ABG pCO2 POC ABG pO2 ABG pO2 ABG HCO3 ABG Base Excess ABG Hemoglobin Oxyhemoglobin Sodium Potassium Chloride Carbon Dioxide BUN Creatinine Glucose POC Glucose 120 H 133 H Lactic Acid 4.10 H* Calcium Phosphorus Magnesium Direct Bilirubin AST ALT Alkaline Phosphatase Lactate Dehydrogenase Troponin T C-Reactive Protein Total Protein Albumin Prealbumin Triglycerides Cholesterol LDL Cholesterol Direct HDL Cholesterol Urine pH Urine WBC (Auto) Urine Creatinine Urine Total Protein Fluid Total Protein Vancomycin Trough Rheumatoid Factor Complement C4 Miscellaneous Test Crossmatch 09/27/16 09/27/16 09/27/16 11:23 15:00 18:15 WBC RBC Hgb Hct MCV MCH MCHC RDW Plt Count Lymph % (Auto) Simpson % (Auto) Lymph # Simpson # Baso # Seg Neutrophils % Seg Neuts % (Manual) Lymphocytes % (Manual) Monocytes % (Manual) Eosinophils % (Manual) Basophils % (Manual) Nucleated RBC % Seg Neutrophils # Seg Neutrophils # Man Lymphocytes # (Manual) Monocytes # (Manual) Eosinophils # (Manual) Basophils # (Manual) PT INR Fibrinogen dRVVT Confirm Interp Factor V Activity POC ABG pH 7.459 H POC ABG pCO2 27.1 L POC ABG pO2 140 H ABG pO2 ABG HCO3 ABG Base Excess ABG Hemoglobin Oxyhemoglobin Sodium Potassium Chloride Carbon Dioxide BUN Creatinine Glucose POC Glucose 114 H 127 H Lactic Acid Calcium Phosphorus Magnesium Direct Bilirubin AST ALT Alkaline Phosphatase Lactate Dehydrogenase Troponin T C-Reactive Protein Total Protein Albumin Prealbumin Triglycerides Cholesterol LDL Cholesterol Direct HDL Cholesterol Urine pH Urine WBC (Auto) Urine Creatinine Urine Total Protein Fluid Total Protein Vancomycin Trough Rheumatoid Factor Complement C4 Miscellaneous Test Crossmatch 09/27/16 09/27/16 09/28/16 Unknown Unknown 03:45 WBC RBC 2.49 L Hgb 6.8 L Hct 20.7 L MCV MCH 27 L MCHC RDW 22.1 H Plt Count Lymph % (Auto) Simpson % (Auto) Lymph # Simpson # Baso # Seg Neutrophils % Seg Neuts % (Manual) 32.0 L Lymphocytes % (Manual) 12.0 L Monocytes % (Manual) 11.0 H Eosinophils % (Manual) 10.0 H Basophils % (Manual) Nucleated RBC % Seg Neutrophils # Seg Neutrophils # Man Lymphocytes # (Manual) 1.0 L Monocytes # (Manual) 0.9 H Eosinophils # (Manual) 0.8 H Basophils # (Manual) PT INR Fibrinogen dRVVT Confirm Interp Factor V Activity POC ABG pH POC ABG pCO2 POC ABG pO2 ABG pO2 ABG HCO3 ABG Base Excess ABG Hemoglobin Oxyhemoglobin Sodium 135 L 135 L Potassium 3.5 L Chloride 93.6 L 94.4 L Carbon Dioxide 17 L 21 L BUN 45 H 28 H Creatinine 3.3 H 2.5 H Glucose 106 H POC Glucose Lactic Acid Calcium 7.3 L 7.1 L Phosphorus Magnesium Direct Bilirubin AST ALT Alkaline Phosphatase Lactate Dehydrogenase Troponin T C-Reactive Protein Total Protein Albumin Prealbumin Triglycerides Cholesterol LDL Cholesterol Direct HDL Cholesterol Urine pH Urine WBC (Auto) Urine Creatinine Urine Total Protein Fluid Total Protein Vancomycin Trough Rheumatoid Factor Complement C4 Miscellaneous Test Crossmatch 09/28/16 09/28/16 09/28/16 03:45 07:25 11:58 WBC 13.3 H RBC 3.01 L Hgb 8.4 L Hct 25.0 L MCV MCH MCHC RDW 20.5 H Plt Count 128 L Lymph % (Auto) Simpson % (Auto) Lymph # Simpson # Baso # Seg Neutrophils % Seg Neuts % (Manual) Lymphocytes % (Manual) 7.0 L Monocytes % (Manual) Eosinophils % (Manual) 6.0 H Basophils % (Manual) Nucleated RBC % Seg Neutrophils # Seg Neutrophils # Man Lymphocytes # (Manual) 0.9 L Monocytes # (Manual) Eosinophils # (Manual) 0.8 H Basophils # (Manual) PT INR Fibrinogen dRVVT Confirm Interp Factor V Activity POC ABG pH POC ABG pCO2 POC ABG pO2 ABG pO2 ABG HCO3 ABG Base Excess ABG Hemoglobin Oxyhemoglobin Sodium Potassium Chloride Carbon Dioxide BUN Creatinine Glucose POC Glucose 121 H Lactic Acid 4.50 H* Calcium Phosphorus Magnesium Direct Bilirubin AST ALT Alkaline Phosphatase Lactate Dehydrogenase Troponin T C-Reactive Protein Total Protein Albumin Prealbumin Triglycerides Cholesterol LDL Cholesterol Direct HDL Cholesterol Urine pH Urine WBC (Auto) Urine Creatinine Urine Total Protein Fluid Total Protein Vancomycin Trough Rheumatoid Factor Complement C4 Miscellaneous Test Crossmatch 09/29/16 09/29/16 09/29/16 06:45 06:45 06:45 WBC 14.9 H RBC 2.74 L Hgb 7.6 L Hct 23.2 L MCV MCH MCHC RDW 20.5 H Plt Count 81 L Lymph % (Auto) Simpson % (Auto) Lymph # Simpson # Baso # Seg Neutrophils % Seg Neuts % (Manual) 81.0 H Lymphocytes % (Manual) 4.0 L Monocytes % (Manual) Eosinophils % (Manual) Basophils % (Manual) Nucleated RBC % Seg Neutrophils # Seg Neutrophils # Man 12.1 H Lymphocytes # (Manual) 0.6 L Monocytes # (Manual) Eosinophils # (Manual) Basophils # (Manual) PT INR Fibrinogen dRVVT Confirm Interp Factor V Activity POC ABG pH POC ABG pCO2 POC ABG pO2 ABG pO2 ABG HCO3 ABG Base Excess ABG Hemoglobin Oxyhemoglobin Sodium 133 L Potassium 3.4 L Chloride 92.5 L Carbon Dioxide 21 L BUN 33 H Creatinine 3.0 H Glucose POC Glucose Lactic Acid Calcium 6.6 L Phosphorus Magnesium 1.40 L Direct Bilirubin 0.9 H AST ALT Alkaline Phosphatase Lactate Dehydrogenase Troponin T C-Reactive Protein Total Protein 4.3 L Albumin 1.3 L Prealbumin Triglycerides Cholesterol LDL Cholesterol Direct HDL Cholesterol Urine pH Urine WBC (Auto) Urine Creatinine Urine Total Protein Fluid Total Protein Vancomycin Trough Rheumatoid Factor Complement C4 Miscellaneous Test Crossmatch 09/29/16 09/29/16 09/30/16 17:52 20:12 00:07 WBC RBC Hgb Hct MCV MCH MCHC RDW Plt Count Lymph % (Auto) Simpson % (Auto) Lymph # Simpson # Baso # Seg Neutrophils % Seg Neuts % (Manual) Lymphocytes % (Manual) Monocytes % (Manual) Eosinophils % (Manual) Basophils % (Manual) Nucleated RBC % Seg Neutrophils # Seg Neutrophils # Man Lymphocytes # (Manual) Monocytes # (Manual) Eosinophils # (Manual) Basophils # (Manual) PT INR Fibrinogen dRVVT Confirm Interp Factor V Activity POC ABG pH POC ABG pCO2 POC ABG pO2 ABG pO2 ABG HCO3 ABG Base Excess ABG Hemoglobin Oxyhemoglobin Sodium Potassium Chloride Carbon Dioxide BUN Creatinine Glucose POC Glucose 50 L 51 L Lactic Acid Calcium Phosphorus Magnesium Direct Bilirubin AST ALT Alkaline Phosphatase Lactate Dehydrogenase Troponin T 0.204 H* C-Reactive Protein Total Protein Albumin Prealbumin Triglycerides Cholesterol 31 L LDL Cholesterol Direct 4 L HDL Cholesterol 3 L Urine pH Urine WBC (Auto) Urine Creatinine Urine Total Protein Fluid Total Protein Vancomycin Trough Rheumatoid Factor Complement C4 Miscellaneous Test Crossmatch 09/30/16 09/30/16 09/30/16 01:30 05:15 06:10 WBC RBC Hgb Hct MCV MCH MCHC RDW Plt Count Lymph % (Auto) Simpson % (Auto) Lymph # Simpson # Baso # Seg Neutrophils % Seg Neuts % (Manual) Lymphocytes % (Manual) Monocytes % (Manual) Eosinophils % (Manual) Basophils % (Manual) Nucleated RBC % Seg Neutrophils # Seg Neutrophils # Man Lymphocytes # (Manual) Monocytes # (Manual) Eosinophils # (Manual) Basophils # (Manual) PT INR Fibrinogen dRVVT Confirm Interp Factor V Activity POC ABG pH POC ABG pCO2 POC ABG pO2 ABG pO2 ABG HCO3 ABG Base Excess ABG Hemoglobin Oxyhemoglobin Sodium 133 L Potassium 3.2 L Chloride 93.2 L Carbon Dioxide 19 L BUN 36 H Creatinine 3.2 H Glucose 104 H POC Glucose 167 H 146 H Lactic Acid Calcium 6.4 L Phosphorus Magnesium 1.60 L Direct Bilirubin AST ALT Alkaline Phosphatase Lactate Dehydrogenase Troponin T C-Reactive Protein Total Protein Albumin Prealbumin Triglycerides Cholesterol LDL Cholesterol Direct HDL Cholesterol Urine pH Urine WBC (Auto) Urine Creatinine Urine Total Protein Fluid Total Protein Vancomycin Trough Rheumatoid Factor Complement C4 Miscellaneous Test Crossmatch 09/30/16 09/30/16 09/30/16 11:26 13:39 18:38 WBC RBC Hgb Hct MCV MCH MCHC RDW Plt Count Lymph % (Auto) Simpson % (Auto) Lymph # Simpson # Baso # Seg Neutrophils % Seg Neuts % (Manual) Lymphocytes % (Manual) Monocytes % (Manual) Eosinophils % (Manual) Basophils % (Manual) Nucleated RBC % Seg Neutrophils # Seg Neutrophils # Man Lymphocytes # (Manual) Monocytes # (Manual) Eosinophils # (Manual) Basophils # (Manual) PT INR Fibrinogen dRVVT Confirm Interp Factor V Activity POC ABG pH 7.479 H POC ABG pCO2 29.8 L POC ABG pO2 117 H ABG pO2 ABG HCO3 ABG Base Excess ABG Hemoglobin Oxyhemoglobin Sodium Potassium Chloride Carbon Dioxide BUN Creatinine Glucose POC Glucose 140 H 122 H Lactic Acid Calcium Phosphorus Magnesium Direct Bilirubin AST ALT Alkaline Phosphatase Lactate Dehydrogenase Troponin T C-Reactive Protein Total Protein Albumin Prealbumin Triglycerides Cholesterol LDL Cholesterol Direct HDL Cholesterol Urine pH Urine WBC (Auto) Urine Creatinine Urine Total Protein Fluid Total Protein Vancomycin Trough Rheumatoid Factor Complement C4 Miscellaneous Test Crossmatch 10/01/16 10/01/16 10/01/16 06:00 06:00 12:37 WBC 12.6 H RBC 2.75 L Hgb 7.3 L Hct 23.3 L MCV MCH 27 L MCHC RDW 20.6 H Plt Count 72 L Lymph % (Auto) Simpson % (Auto) Lymph # Simpson # Baso # Seg Neutrophils % Seg Neuts % (Manual) 31.0 L Lymphocytes % (Manual) 8.0 L Monocytes % (Manual) Eosinophils % (Manual) Basophils % (Manual) Nucleated RBC % 3.0 H Seg Neutrophils # Seg Neutrophils # Man Lymphocytes # (Manual) 1.0 L Monocytes # (Manual) Eosinophils # (Manual) Basophils # (Manual) PT INR Fibrinogen dRVVT Confirm Interp Factor V Activity POC ABG pH POC ABG pCO2 POC ABG pO2 ABG pO2 ABG HCO3 ABG Base Excess ABG Hemoglobin Oxyhemoglobin Sodium 127 L Potassium Chloride 86.8 L Carbon Dioxide 20 L BUN 42 H Creatinine 3.5 H Glucose POC Glucose 65 L Lactic Acid Calcium 7.0 L Phosphorus Magnesium Direct Bilirubin AST ALT Alkaline Phosphatase Lactate Dehydrogenase Troponin T C-Reactive Protein Total Protein Albumin Prealbumin Triglycerides Cholesterol LDL Cholesterol Direct HDL Cholesterol Urine pH Urine WBC (Auto) Urine Creatinine Urine Total Protein Fluid Total Protein Vancomycin Trough Rheumatoid Factor Complement C4 Miscellaneous Test Crossmatch 10/01/16 10/01/16 10/02/16 17:39 23:32 00:59 WBC RBC Hgb Hct MCV MCH MCHC RDW Plt Count Lymph % (Auto) Simpson % (Auto) Lymph # Simpson # Baso # Seg Neutrophils % Seg Neuts % (Manual) Lymphocytes % (Manual) Monocytes % (Manual) Eosinophils % (Manual) Basophils % (Manual) Nucleated RBC % Seg Neutrophils # Seg Neutrophils # Man Lymphocytes # (Manual) Monocytes # (Manual) Eosinophils # (Manual) Basophils # (Manual) PT INR Fibrinogen dRVVT Confirm Interp Factor V Activity POC ABG pH POC ABG pCO2 POC ABG pO2 ABG pO2 ABG HCO3 ABG Base Excess ABG Hemoglobin Oxyhemoglobin Sodium Potassium Chloride Carbon Dioxide BUN Creatinine Glucose POC Glucose 107 H 52 L 145 H Lactic Acid Calcium Phosphorus Magnesium Direct Bilirubin AST ALT Alkaline Phosphatase Lactate Dehydrogenase Troponin T C-Reactive Protein Total Protein Albumin Prealbumin Triglycerides Cholesterol LDL Cholesterol Direct HDL Cholesterol Urine pH Urine WBC (Auto) Urine Creatinine Urine Total Protein Fluid Total Protein Vancomycin Trough Rheumatoid Factor Complement C4 Miscellaneous Test Crossmatch 10/02/16 10/02/16 10/02/16 10:30 10:50 10:50 WBC 14.7 H RBC 2.76 L Hgb 7.4 L Hct 23.6 L MCV MCH 27 L MCHC RDW 20.2 H Plt Count 79 L Lymph % (Auto) Simpson % (Auto) Lymph # Simpson # Baso # Seg Neutrophils % Seg Neuts % (Manual) 86.0 H Lymphocytes % (Manual) 6.0 L Monocytes % (Manual) Eosinophils % (Manual) Basophils % (Manual) Nucleated RBC % Seg Neutrophils # Seg Neutrophils # Man 12.6 H Lymphocytes # (Manual) 0.9 L Monocytes # (Manual) Eosinophils # (Manual) Basophils # (Manual) PT INR Fibrinogen dRVVT Confirm Interp Factor V Activity POC ABG pH 7.486 H POC ABG pCO2 30.1 L POC ABG pO2 108 H ABG pO2 ABG HCO3 ABG Base Excess ABG Hemoglobin Oxyhemoglobin Sodium 131 L Potassium 3.4 L Chloride 89.9 L Carbon Dioxide BUN 26 H Creatinine 2.6 H Glucose POC Glucose Lactic Acid Calcium 7.0 L Phosphorus Magnesium Direct Bilirubin AST ALT Alkaline Phosphatase Lactate Dehydrogenase Troponin T C-Reactive Protein Total Protein Albumin Prealbumin Triglycerides Cholesterol LDL Cholesterol Direct HDL Cholesterol Urine pH Urine WBC (Auto) Urine Creatinine Urine Total Protein Fluid Total Protein Vancomycin Trough Rheumatoid Factor Complement C4 Miscellaneous Test Crossmatch 10/02/16 10/03/16 10/03/16 23:45 00:45 05:10 WBC 12.9 H RBC 2.77 L Hgb 7.6 L Hct 23.7 L MCV MCH 27 L MCHC RDW 19.7 H Plt Count 89 L Lymph % (Auto) Simpson % (Auto) Lymph # Simpson # Baso # Seg Neutrophils % Seg Neuts % (Manual) Lymphocytes % (Manual) 8.0 L Monocytes % (Manual) Eosinophils % (Manual) Basophils % (Manual) Nucleated RBC % Seg Neutrophils # 11.9 H Seg Neutrophils # Man Lymphocytes # (Manual) 1.0 L Monocytes # (Manual) Eosinophils # (Manual) Basophils # (Manual) PT INR Fibrinogen dRVVT Confirm Interp Factor V Activity POC ABG pH POC ABG pCO2 POC ABG pO2 ABG pO2 ABG HCO3 ABG Base Excess ABG Hemoglobin Oxyhemoglobin Sodium Potassium Chloride Carbon Dioxide BUN Creatinine Glucose POC Glucose 55 L 199 H Lactic Acid Calcium Phosphorus Magnesium Direct Bilirubin AST ALT Alkaline Phosphatase Lactate Dehydrogenase Troponin T C-Reactive Protein Total Protein Albumin Prealbumin Triglycerides Cholesterol LDL Cholesterol Direct HDL Cholesterol Urine pH Urine WBC (Auto) Urine Creatinine Urine Total Protein Fluid Total Protein Vancomycin Trough Rheumatoid Factor Complement C4 Miscellaneous Test Crossmatch 10/03/16 10/03/16 10/03/16 05:10 12:14 13:18 WBC RBC Hgb Hct MCV MCH MCHC RDW Plt Count Lymph % (Auto) Simpson % (Auto) Lymph # Simpson # Baso # Seg Neutrophils % Seg Neuts % (Manual) Lymphocytes % (Manual) Monocytes % (Manual) Eosinophils % (Manual) Basophils % (Manual) Nucleated RBC % Seg Neutrophils # Seg Neutrophils # Man Lymphocytes # (Manual) Monocytes # (Manual) Eosinophils # (Manual) Basophils # (Manual) PT INR Fibrinogen dRVVT Confirm Interp Factor V Activity POC ABG pH POC ABG pCO2 POC ABG pO2 ABG pO2 ABG HCO3 ABG Base Excess ABG Hemoglobin Oxyhemoglobin Sodium 129 L Potassium 3.3 L Chloride 88.8 L Carbon Dioxide 20 L BUN 29 H Creatinine 2.8 H Glucose POC Glucose 68 L 127 H Lactic Acid Calcium 7.2 L Phosphorus Magnesium Direct Bilirubin AST ALT Alkaline Phosphatase Lactate Dehydrogenase Troponin T C-Reactive Protein Total Protein Albumin Prealbumin Triglycerides Cholesterol LDL Cholesterol Direct HDL Cholesterol Urine pH Urine WBC (Auto) Urine Creatinine Urine Total Protein Fluid Total Protein Vancomycin Trough Rheumatoid Factor Complement C4 Miscellaneous Test Crossmatch 10/03/16 10/03/16 10/03/16 14:42 18:21 19:09 WBC RBC Hgb Hct MCV MCH MCHC RDW Plt Count Lymph % (Auto) Simpson % (Auto) Lymph # Simpson # Baso # Seg Neutrophils % Seg Neuts % (Manual) Lymphocytes % (Manual) Monocytes % (Manual) Eosinophils % (Manual) Basophils % (Manual) Nucleated RBC % Seg Neutrophils # Seg Neutrophils # Man Lymphocytes # (Manual) Monocytes # (Manual) Eosinophils # (Manual) Basophils # (Manual) PT INR Fibrinogen dRVVT Confirm Interp Factor V Activity POC ABG pH 7.499 H POC ABG pCO2 28.4 L POC ABG pO2 44 L ABG pO2 ABG HCO3 ABG Base Excess ABG Hemoglobin Oxyhemoglobin Sodium Potassium Chloride Carbon Dioxide BUN Creatinine Glucose POC Glucose 64 L 205 H Lactic Acid Calcium Phosphorus Magnesium Direct Bilirubin AST ALT Alkaline Phosphatase Lactate Dehydrogenase Troponin T C-Reactive Protein Total Protein Albumin Prealbumin Triglycerides Cholesterol LDL Cholesterol Direct HDL Cholesterol Urine pH Urine WBC (Auto) Urine Creatinine Urine Total Protein Fluid Total Protein Vancomycin Trough Rheumatoid Factor Complement C4 Miscellaneous Test Crossmatch 10/03/16 10/04/16 10/04/16 23:33 04:18 06:30 WBC RBC 2.54 L Hgb 7.1 L Hct 21.7 L MCV MCH MCHC RDW 19.5 H Plt Count 76 L Lymph % (Auto) Simpson % (Auto) Lymph # Simpson # Baso # Seg Neutrophils % Seg Neuts % (Manual) 88.0 H Lymphocytes % (Manual) 6.0 L Monocytes % (Manual) Eosinophils % (Manual) Basophils % (Manual) Nucleated RBC % Seg Neutrophils # Seg Neutrophils # Man 8.8 H Lymphocytes # (Manual) 0.6 L Monocytes # (Manual) Eosinophils # (Manual) Basophils # (Manual) PT INR Fibrinogen dRVVT Confirm Interp Factor V Activity POC ABG pH 7.461 H POC ABG pCO2 33.6 L POC ABG pO2 211 H ABG pO2 ABG HCO3 ABG Base Excess ABG Hemoglobin Oxyhemoglobin Sodium Potassium Chloride Carbon Dioxide BUN Creatinine Glucose POC Glucose 136 H Lactic Acid Calcium Phosphorus Magnesium Direct Bilirubin AST ALT Alkaline Phosphatase Lactate Dehydrogenase Troponin T C-Reactive Protein Total Protein Albumin Prealbumin Triglycerides Cholesterol LDL Cholesterol Direct HDL Cholesterol Urine pH Urine WBC (Auto) Urine Creatinine Urine Total Protein Fluid Total Protein Vancomycin Trough Rheumatoid Factor Complement C4 Miscellaneous Test Crossmatch 10/04/16 10/04/16 10/04/16 06:30 11:45 17:54 WBC RBC Hgb Hct MCV MCH MCHC RDW Plt Count Lymph % (Auto) Simpson % (Auto) Lymph # Simpson # Baso # Seg Neutrophils % Seg Neuts % (Manual) Lymphocytes % (Manual) Monocytes % (Manual) Eosinophils % (Manual) Basophils % (Manual) Nucleated RBC % Seg Neutrophils # Seg Neutrophils # Man Lymphocytes # (Manual) Monocytes # (Manual) Eosinophils # (Manual) Basophils # (Manual) PT INR Fibrinogen dRVVT Confirm Interp Factor V Activity POC ABG pH POC ABG pCO2 POC ABG pO2 ABG pO2 ABG HCO3 ABG Base Excess ABG Hemoglobin Oxyhemoglobin Sodium 128 L Potassium Chloride 87.4 L Carbon Dioxide 20 L BUN 34 H Creatinine 2.9 H Glucose 127 H POC Glucose 158 H 160 H Lactic Acid Calcium 7.4 L Phosphorus Magnesium Direct Bilirubin AST ALT Alkaline Phosphatase Lactate Dehydrogenase Troponin T C-Reactive Protein Total Protein Albumin Prealbumin Triglycerides Cholesterol LDL Cholesterol Direct HDL Cholesterol Urine pH Urine WBC (Auto) Urine Creatinine Urine Total Protein Fluid Total Protein Vancomycin Trough Rheumatoid Factor Complement C4 Miscellaneous Test Crossmatch 10/04/16 10/05/16 10/05/16 23:25 04:30 05:00 WBC RBC 2.64 L Hgb 7.5 L Hct 22.6 L MCV MCH MCHC RDW 19.3 H Plt Count 80 L Lymph % (Auto) Simpson % (Auto) Lymph # Simpson # Baso # Seg Neutrophils % Seg Neuts % (Manual) Lymphocytes % (Manual) 12.0 L Monocytes % (Manual) Eosinophils % (Manual) Basophils % (Manual) Nucleated RBC % Seg Neutrophils # Seg Neutrophils # Man Lymphocytes # (Manual) Monocytes # (Manual) Eosinophils # (Manual) Basophils # (Manual) PT INR Fibrinogen dRVVT Confirm Interp Factor V Activity POC ABG pH 7.475 H POC ABG pCO2 33.3 L POC ABG pO2 140 H ABG pO2 ABG HCO3 ABG Base Excess ABG Hemoglobin Oxyhemoglobin Sodium Potassium Chloride Carbon Dioxide BUN Creatinine Glucose POC Glucose 141 H Lactic Acid Calcium Phosphorus Magnesium Direct Bilirubin AST ALT Alkaline Phosphatase Lactate Dehydrogenase Troponin T C-Reactive Protein Total Protein Albumin Prealbumin Triglycerides Cholesterol LDL Cholesterol Direct HDL Cholesterol Urine pH Urine WBC (Auto) Urine Creatinine Urine Total Protein Fluid Total Protein Vancomycin Trough Rheumatoid Factor Complement C4 Miscellaneous Test Crossmatch 10/05/16 10/05/16 10/05/16 05:00 05:09 12:58 WBC RBC Hgb Hct MCV MCH MCHC RDW Plt Count Lymph % (Auto) Simpson % (Auto) Lymph # Simpson # Baso # Seg Neutrophils % Seg Neuts % (Manual) Lymphocytes % (Manual) Monocytes % (Manual) Eosinophils % (Manual) Basophils % (Manual) Nucleated RBC % Seg Neutrophils # Seg Neutrophils # Man Lymphocytes # (Manual) Monocytes # (Manual) Eosinophils # (Manual) Basophils # (Manual) PT INR Fibrinogen dRVVT Confirm Interp Factor V Activity POC ABG pH POC ABG pCO2 POC ABG pO2 ABG pO2 ABG HCO3 ABG Base Excess ABG Hemoglobin Oxyhemoglobin Sodium 131 L Potassium Chloride 94.0 L Carbon Dioxide 20 L BUN 22 H Creatinine 2.0 H Glucose 123 H POC Glucose 166 H 179 H Lactic Acid Calcium 7.7 L Phosphorus 2.20 L D Magnesium Direct Bilirubin AST ALT Alkaline Phosphatase Lactate Dehydrogenase Troponin T C-Reactive Protein Total Protein Albumin Prealbumin Triglycerides Cholesterol LDL Cholesterol Direct HDL Cholesterol Urine pH Urine WBC (Auto) Urine Creatinine Urine Total Protein Fluid Total Protein Vancomycin Trough Rheumatoid Factor Complement C4 Miscellaneous Test Crossmatch 10/05/16 10/05/16 10/05/16 15:50 18:53 23:12 WBC RBC Hgb Hct MCV MCH MCHC RDW Plt Count Lymph % (Auto) Simpson % (Auto) Lymph # Simpson # Baso # Seg Neutrophils % Seg Neuts % (Manual) Lymphocytes % (Manual) Monocytes % (Manual) Eosinophils % (Manual) Basophils % (Manual) Nucleated RBC % Seg Neutrophils # Seg Neutrophils # Man Lymphocytes # (Manual) Monocytes # (Manual) Eosinophils # (Manual) Basophils # (Manual) PT INR Fibrinogen dRVVT Confirm Interp Factor V Activity POC ABG pH POC ABG pCO2 POC ABG pO2 ABG pO2 ABG HCO3 ABG Base Excess ABG Hemoglobin Oxyhemoglobin Sodium Potassium Chloride Carbon Dioxide BUN Creatinine Glucose POC Glucose 150 H 164 H Lactic Acid Calcium Phosphorus Magnesium Direct Bilirubin AST ALT Alkaline Phosphatase Lactate Dehydrogenase Troponin T C-Reactive Protein Total Protein Albumin Prealbumin Triglycerides Cholesterol LDL Cholesterol Direct HDL Cholesterol Urine pH Urine WBC (Auto) Urine Creatinine Urine Total Protein Fluid Total Protein Vancomycin Trough Rheumatoid Factor Complement C4 Miscellaneous Test Crossmatch See Detail 10/06/16 10/06/16 10/06/16 03:50 03:50 04:53 WBC RBC 3.00 L Hgb 8.6 L Hct 25.8 L MCV MCH MCHC RDW 17.9 H Plt Count 65 L Lymph % (Auto) Simpson % (Auto) Lymph # Simpson # Baso # Seg Neutrophils % Seg Neuts % (Manual) 30.0 L Lymphocytes % (Manual) 5.0 L Monocytes % (Manual) Eosinophils % (Manual) Basophils % (Manual) Nucleated RBC % Seg Neutrophils # Seg Neutrophils # Man Lymphocytes # (Manual) 0.4 L Monocytes # (Manual) Eosinophils # (Manual) Basophils # (Manual) PT INR Fibrinogen dRVVT Confirm Interp Factor V Activity POC ABG pH 7.310 L POC ABG pCO2 49.0 H POC ABG pO2 ABG pO2 ABG HCO3 ABG Base Excess ABG Hemoglobin Oxyhemoglobin Sodium 133 L Potassium Chloride 95.9 L Carbon Dioxide BUN 26 H Creatinine 2.0 H Glucose 116 H POC Glucose Lactic Acid Calcium 7.8 L Phosphorus Magnesium Direct Bilirubin AST ALT Alkaline Phosphatase Lactate Dehydrogenase Troponin T C-Reactive Protein Total Protein Albumin Prealbumin Triglycerides Cholesterol LDL Cholesterol Direct HDL Cholesterol Urine pH Urine WBC (Auto) Urine Creatinine Urine Total Protein Fluid Total Protein Vancomycin Trough Rheumatoid Factor Complement C4 Miscellaneous Test Crossmatch 10/06/16 10/06/16 10/06/16 05:23 11:52 18:34 WBC RBC Hgb Hct MCV MCH MCHC RDW Plt Count Lymph % (Auto) Simpson % (Auto) Lymph # Simpson # Baso # Seg Neutrophils % Seg Neuts % (Manual) Lymphocytes % (Manual) Monocytes % (Manual) Eosinophils % (Manual) Basophils % (Manual) Nucleated RBC % Seg Neutrophils # Seg Neutrophils # Man Lymphocytes # (Manual) Monocytes # (Manual) Eosinophils # (Manual) Basophils # (Manual) PT INR Fibrinogen dRVVT Confirm Interp Factor V Activity POC ABG pH POC ABG pCO2 POC ABG pO2 ABG pO2 ABG HCO3 ABG Base Excess ABG Hemoglobin Oxyhemoglobin Sodium Potassium Chloride Carbon Dioxide BUN Creatinine Glucose POC Glucose 126 H 116 H 129 H Lactic Acid Calcium Phosphorus Magnesium Direct Bilirubin AST ALT Alkaline Phosphatase Lactate Dehydrogenase Troponin T C-Reactive Protein Total Protein Albumin Prealbumin Triglycerides Cholesterol LDL Cholesterol Direct HDL Cholesterol Urine pH Urine WBC (Auto) Urine Creatinine Urine Total Protein Fluid Total Protein Vancomycin Trough Rheumatoid Factor Complement C4 Miscellaneous Test Crossmatch 10/07/16 10/07/16 10/07/16 03:45 05:00 10:00 WBC 17.0 H RBC 2.68 L Hgb 7.3 L Hct 25.3 L MCV MCH 27 L MCHC 29 L RDW 19.6 H Plt Count 74 L Lymph % (Auto) Simpson % (Auto) Lymph # Simpson # Baso # Seg Neutrophils % Seg Neuts % (Manual) Lymphocytes % (Manual) 12.0 L Monocytes % (Manual) Eosinophils % (Manual) Basophils % (Manual) Nucleated RBC % 4.0 H Seg Neutrophils # Seg Neutrophils # Man 10.7 H Lymphocytes # (Manual) Monocytes # (Manual) Eosinophils # (Manual) Basophils # (Manual) PT INR Fibrinogen dRVVT Confirm Interp Factor V Activity POC ABG pH POC ABG pCO2 POC ABG pO2 ABG pO2 ABG HCO3 ABG Base Excess ABG Hemoglobin Oxyhemoglobin Sodium 130 L Potassium 3.2 L Chloride 93.9 L Carbon Dioxide 20 L BUN 44 H Creatinine 2.7 H Glucose 129 H POC Glucose Lactic Acid Calcium 7.4 L Phosphorus Magnesium Direct Bilirubin AST ALT 6 L Alkaline Phosphatase 195 H Lactate Dehydrogenase Troponin T C-Reactive Protein Total Protein 4.9 L Albumin 1.0 L Prealbumin Triglycerides Cholesterol LDL Cholesterol Direct HDL Cholesterol Urine pH Urine WBC (Auto) Urine Creatinine Urine Total Protein Fluid Total Protein Vancomycin Trough Rheumatoid Factor Complement C4 Miscellaneous Test Flexitest 1 H Crossmatch 10/07/16 10/07/16 10/07/16 10:00 11:24 18:10 WBC RBC Hgb Hct MCV MCH MCHC RDW Plt Count Lymph % (Auto) Simpson % (Auto) Lymph # Simpson # Baso # Seg Neutrophils % Seg Neuts % (Manual) Lymphocytes % (Manual) Monocytes % (Manual) Eosinophils % (Manual) Basophils % (Manual) Nucleated RBC % Seg Neutrophils # Seg Neutrophils # Man Lymphocytes # (Manual) Monocytes # (Manual) Eosinophils # (Manual) Basophils # (Manual) PT INR Fibrinogen dRVVT Confirm Interp Factor V Activity POC ABG pH POC ABG pCO2 POC ABG pO2 ABG pO2 ABG HCO3 ABG Base Excess ABG Hemoglobin Oxyhemoglobin Sodium Potassium Chloride Carbon Dioxide BUN Creatinine Glucose POC Glucose 116 H 130 H Lactic Acid Calcium Phosphorus Magnesium Direct Bilirubin AST ALT Alkaline Phosphatase Lactate Dehydrogenase Troponin T C-Reactive Protein 19.40 H Total Protein Albumin Prealbumin Triglycerides Cholesterol LDL Cholesterol Direct HDL Cholesterol Urine pH Urine WBC (Auto) Urine Creatinine Urine Total Protein Fluid Total Protein Vancomycin Trough Rheumatoid Factor Complement C4 Miscellaneous Test Crossmatch 10/07/16 10/08/16 10/08/16 18:30 00:00 04:00 WBC RBC Hgb Hct MCV MCH MCHC RDW Plt Count Lymph % (Auto) Simpson % (Auto) Lymph # Simpson # Baso # Seg Neutrophils % Seg Neuts % (Manual) Lymphocytes % (Manual) Monocytes % (Manual) Eosinophils % (Manual) Basophils % (Manual) Nucleated RBC % Seg Neutrophils # Seg Neutrophils # Man Lymphocytes # (Manual) Monocytes # (Manual) Eosinophils # (Manual) Basophils # (Manual) PT INR Fibrinogen dRVVT Confirm Interp Factor V Activity POC ABG pH POC ABG pCO2 POC ABG pO2 ABG pO2 ABG HCO3 ABG Base Excess ABG Hemoglobin Oxyhemoglobin Sodium 132 L Potassium 3.3 L Chloride 93.6 L Carbon Dioxide 17 L BUN 59 H Creatinine 2.7 H Glucose 121 H POC Glucose 122 H Lactic Acid Calcium 7.6 L Phosphorus Magnesium Direct Bilirubin AST ALT Alkaline Phosphatase Lactate Dehydrogenase Troponin T C-Reactive Protein Total Protein Albumin Prealbumin Triglycerides Cholesterol LDL Cholesterol Direct HDL Cholesterol Urine pH Urine WBC (Auto) > 182.0 H Urine Creatinine Urine Total Protein Fluid Total Protein Vancomycin Trough Rheumatoid Factor Complement C4 Miscellaneous Test Crossmatch 10/08/16 10/08/16 10/08/16 04:30 05:30 11:51 WBC RBC 5.15 H Hgb 14.4 H D Hct 44.5 H D MCV MCH MCHC RDW 19.5 H Plt Count 56 L Lymph % (Auto) Simpson % (Auto) Lymph # Simpson # Baso # Seg Neutrophils % Seg Neuts % (Manual) 24.0 L Lymphocytes % (Manual) 8.0 L Monocytes % (Manual) Eosinophils % (Manual) Basophils % (Manual) Nucleated RBC % 9.0 H Seg Neutrophils # Seg Neutrophils # Man Lymphocytes # (Manual) 0.7 L Monocytes # (Manual) Eosinophils # (Manual) Basophils # (Manual) PT INR Fibrinogen dRVVT Confirm Interp Factor V Activity POC ABG pH POC ABG pCO2 POC ABG pO2 ABG pO2 ABG HCO3 ABG Base Excess ABG Hemoglobin Oxyhemoglobin Sodium Potassium Chloride Carbon Dioxide BUN Creatinine Glucose POC Glucose 125 H 150 H Lactic Acid Calcium Phosphorus Magnesium Direct Bilirubin AST ALT Alkaline Phosphatase Lactate Dehydrogenase Troponin T C-Reactive Protein Total Protein Albumin Prealbumin Triglycerides Cholesterol LDL Cholesterol Direct HDL Cholesterol Urine pH Urine WBC (Auto) Urine Creatinine Urine Total Protein Fluid Total Protein Vancomycin Trough Rheumatoid Factor Complement C4 Miscellaneous Test Crossmatch 10/08/16 10/08/16 10/08/16 12:49 17:07 19:30 WBC RBC Hgb 7.1 L D Hct 22.4 L D MCV MCH MCHC RDW Plt Count Lymph % (Auto) Simpson % (Auto) Lymph # Simpson # Baso # Seg Neutrophils % Seg Neuts % (Manual) Lymphocytes % (Manual) Monocytes % (Manual) Eosinophils % (Manual) Basophils % (Manual) Nucleated RBC % Seg Neutrophils # Seg Neutrophils # Man Lymphocytes # (Manual) Monocytes # (Manual) Eosinophils # (Manual) Basophils # (Manual) PT INR Fibrinogen dRVVT Confirm Interp Factor V Activity POC ABG pH POC ABG pCO2 28.2 L POC ABG pO2 111 H ABG pO2 ABG HCO3 ABG Base Excess ABG Hemoglobin Oxyhemoglobin Sodium Potassium Chloride Carbon Dioxide BUN Creatinine Glucose POC Glucose 145 H Lactic Acid Calcium Phosphorus Magnesium Direct Bilirubin AST ALT Alkaline Phosphatase Lactate Dehydrogenase Troponin T C-Reactive Protein Total Protein Albumin Prealbumin Triglycerides Cholesterol LDL Cholesterol Direct HDL Cholesterol Urine pH Urine WBC (Auto) Urine Creatinine Urine Total Protein Fluid Total Protein Vancomycin Trough Rheumatoid Factor Complement C4 Miscellaneous Test Crossmatch 10/08/16 10/09/16 10/09/16 19:30 03:45 03:45 WBC 12.6 H RBC 2.36 L Hgb 6.7 L Hct 21.1 L MCV MCH MCHC RDW 19.5 H Plt Count 75 L Lymph % (Auto) Simpson % (Auto) Lymph # Simpson # Baso # Seg Neutrophils % Seg Neuts % (Manual) Lymphocytes % (Manual) Monocytes % (Manual) 10.0 H Eosinophils % (Manual) Basophils % (Manual) Nucleated RBC % 3.0 H Seg Neutrophils # Seg Neutrophils # Man Lymphocytes # (Manual) Monocytes # (Manual) 1.3 H Eosinophils # (Manual) Basophils # (Manual) PT 18.0 H INR 1.41 H Fibrinogen dRVVT Confirm Interp Factor V Activity POC ABG pH POC ABG pCO2 POC ABG pO2 ABG pO2 ABG HCO3 ABG Base Excess ABG Hemoglobin Oxyhemoglobin Sodium 135 L Potassium Chloride Carbon Dioxide 17 L BUN 81 H Creatinine 3.2 H Glucose 109 H POC Glucose Lactic Acid Calcium 7.4 L Phosphorus 4.60 H D Magnesium Direct Bilirubin AST ALT Alkaline Phosphatase Lactate Dehydrogenase Troponin T C-Reactive Protein Total Protein Albumin Prealbumin Triglycerides Cholesterol LDL Cholesterol Direct HDL Cholesterol Urine pH Urine WBC (Auto) Urine Creatinine Urine Total Protein Fluid Total Protein Vancomycin Trough Rheumatoid Factor Complement C4 Miscellaneous Test Crossmatch 10/09/16 10/09/16 10/09/16 03:45 05:14 07:20 WBC RBC Hgb Hct MCV MCH MCHC RDW Plt Count Lymph % (Auto) Simpson % (Auto) Lymph # Simpson # Baso # Seg Neutrophils % Seg Neuts % (Manual) Lymphocytes % (Manual) Monocytes % (Manual) Eosinophils % (Manual) Basophils % (Manual) Nucleated RBC % Seg Neutrophils # Seg Neutrophils # Man Lymphocytes # (Manual) Monocytes # (Manual) Eosinophils # (Manual) Basophils # (Manual) PT 19.0 H INR 1.51 H Fibrinogen dRVVT Confirm Interp Factor V Activity POC ABG pH POC ABG pCO2 POC ABG pO2 ABG pO2 ABG HCO3 ABG Base Excess ABG Hemoglobin Oxyhemoglobin Sodium Potassium Chloride Carbon Dioxide BUN Creatinine Glucose POC Glucose 151 H Lactic Acid Calcium Phosphorus Magnesium Direct Bilirubin AST ALT Alkaline Phosphatase Lactate Dehydrogenase Troponin T C-Reactive Protein Total Protein Albumin Prealbumin Triglycerides Cholesterol LDL Cholesterol Direct HDL Cholesterol Urine pH Urine WBC (Auto) Urine Creatinine Urine Total Protein Fluid Total Protein Vancomycin Trough Rheumatoid Factor Complement C4 Miscellaneous Test Crossmatch See Detail 10/09/16 10/09/16 10/09/16 11:46 16:20 16:43 WBC RBC Hgb 7.2 L Hct 22.2 L MCV MCH MCHC RDW Plt Count Lymph % (Auto) Simpson % (Auto) Lymph # Simpson # Baso # Seg Neutrophils % Seg Neuts % (Manual) Lymphocytes % (Manual) Monocytes % (Manual) Eosinophils % (Manual) Basophils % (Manual) Nucleated RBC % Seg Neutrophils # Seg Neutrophils # Man Lymphocytes # (Manual) Monocytes # (Manual) Eosinophils # (Manual) Basophils # (Manual) PT INR Fibrinogen dRVVT Confirm Interp Factor V Activity POC ABG pH POC ABG pCO2 POC ABG pO2 ABG pO2 ABG HCO3 ABG Base Excess ABG Hemoglobin Oxyhemoglobin Sodium Potassium Chloride Carbon Dioxide BUN Creatinine Glucose POC Glucose 133 H 141 H Lactic Acid Calcium Phosphorus Magnesium Direct Bilirubin AST ALT Alkaline Phosphatase Lactate Dehydrogenase Troponin T C-Reactive Protein Total Protein Albumin Prealbumin Triglycerides Cholesterol LDL Cholesterol Direct HDL Cholesterol Urine pH Urine WBC (Auto) Urine Creatinine Urine Total Protein Fluid Total Protein Vancomycin Trough Rheumatoid Factor Complement C4 Miscellaneous Test Crossmatch 10/10/16 10/10/16 10/10/16 05:00 05:00 11:19 WBC 18.5 H RBC 2.19 L Hgb 6.4 L Hct 19.6 L* MCV MCH MCHC RDW 19.3 H Plt Count 93 L Lymph % (Auto) Simpson % (Auto) Lymph # Simpson # Baso # Seg Neutrophils % Seg Neuts % (Manual) Lymphocytes % (Manual) 10.0 L Monocytes % (Manual) Eosinophils % (Manual) Basophils % (Manual) Nucleated RBC % 4.0 H Seg Neutrophils # Seg Neutrophils # Man 11.3 H Lymphocytes # (Manual) Monocytes # (Manual) Eosinophils # (Manual) Basophils # (Manual) PT INR Fibrinogen dRVVT Confirm Interp Factor V Activity POC ABG pH POC ABG pCO2 POC ABG pO2 ABG pO2 ABG HCO3 ABG Base Excess ABG Hemoglobin Oxyhemoglobin Sodium Potassium 5.7 H D Chloride Carbon Dioxide 16 L BUN 94 H Creatinine 3.1 H Glucose 131 H POC Glucose 153 H Lactic Acid Calcium 8.2 L Phosphorus 5.10 H Magnesium 2.40 H Direct Bilirubin 0.3 H AST ALT < 5 L Alkaline Phosphatase 319 H Lactate Dehydrogenase Troponin T C-Reactive Protein Total Protein 5.1 L Albumin 1.0 L Prealbumin Triglycerides Cholesterol LDL Cholesterol Direct HDL Cholesterol Urine pH Urine WBC (Auto) Urine Creatinine Urine Total Protein Fluid Total Protein Vancomycin Trough Rheumatoid Factor Complement C4 Miscellaneous Test Crossmatch 10/10/16 10/10/16 10/11/16 17:50 23:30 04:15 WBC RBC Hgb Hct MCV MCH MCHC RDW Plt Count Lymph % (Auto) Simpson % (Auto) Lymph # Simpson # Baso # Seg Neutrophils % Seg Neuts % (Manual) Lymphocytes % (Manual) Monocytes % (Manual) Eosinophils % (Manual) Basophils % (Manual) Nucleated RBC % Seg Neutrophils # Seg Neutrophils # Man Lymphocytes # (Manual) Monocytes # (Manual) Eosinophils # (Manual) Basophils # (Manual) PT INR Fibrinogen dRVVT Confirm Interp Factor V Activity POC ABG pH POC ABG pCO2 POC ABG pO2 ABG pO2 ABG HCO3 ABG Base Excess ABG Hemoglobin Oxyhemoglobin Sodium Potassium Chloride 96.4 L Carbon Dioxide 21 L BUN 57 H Creatinine 2.1 H Glucose 151 H POC Glucose 146 H 141 H Lactic Acid Calcium 8.3 L Phosphorus Magnesium Direct Bilirubin AST ALT Alkaline Phosphatase Lactate Dehydrogenase Troponin T C-Reactive Protein Total Protein Albumin Prealbumin Triglycerides Cholesterol LDL Cholesterol Direct HDL Cholesterol Urine pH Urine WBC (Auto) Urine Creatinine Urine Total Protein Fluid Total Protein Vancomycin Trough Rheumatoid Factor Complement C4 Miscellaneous Test Crossmatch 10/11/16 10/11/16 10/11/16 04:15 04:15 05:30 WBC 28.3 H RBC 3.12 L Hgb 9.3 L Hct 28.7 L D MCV MCH MCHC RDW 17.7 H Plt Count 128 L Lymph % (Auto) Simpson % (Auto) Lymph # Simpson # Baso # Seg Neutrophils % Seg Neuts % (Manual) Lymphocytes % (Manual) Monocytes % (Manual) Eosinophils % (Manual) Basophils % (Manual) Nucleated RBC % Seg Neutrophils # Seg Neutrophils # Man Lymphocytes # (Manual) Monocytes # (Manual) Eosinophils # (Manual) Basophils # (Manual) PT INR Fibrinogen dRVVT Confirm Interp Factor V Activity POC ABG pH POC ABG pCO2 POC ABG pO2 ABG pO2 ABG HCO3 ABG Base Excess ABG Hemoglobin Oxyhemoglobin Sodium Potassium Chloride Carbon Dioxide BUN Creatinine Glucose POC Glucose 167 H Lactic Acid Calcium Phosphorus Magnesium Direct Bilirubin AST ALT Alkaline Phosphatase Lactate Dehydrogenase Troponin T C-Reactive Protein 15.80 H Total Protein Albumin Prealbumin Triglycerides Cholesterol LDL Cholesterol Direct HDL Cholesterol Urine pH Urine WBC (Auto) Urine Creatinine Urine Total Protein Fluid Total Protein Vancomycin Trough Rheumatoid Factor Complement C4 Miscellaneous Test Crossmatch 10/11/16 10/11/16 10/11/16 11:40 15:49 23:57 WBC RBC Hgb Hct MCV MCH MCHC RDW Plt Count Lymph % (Auto) Simpson % (Auto) Lymph # Simpson # Baso # Seg Neutrophils % Seg Neuts % (Manual) Lymphocytes % (Manual) Monocytes % (Manual) Eosinophils % (Manual) Basophils % (Manual) Nucleated RBC % Seg Neutrophils # Seg Neutrophils # Man Lymphocytes # (Manual) Monocytes # (Manual) Eosinophils # (Manual) Basophils # (Manual) PT INR Fibrinogen dRVVT Confirm Interp Factor V Activity POC ABG pH POC ABG pCO2 POC ABG pO2 ABG pO2 ABG HCO3 ABG Base Excess ABG Hemoglobin Oxyhemoglobin Sodium Potassium Chloride Carbon Dioxide BUN Creatinine Glucose POC Glucose 139 H 168 H 161 H Lactic Acid Calcium Phosphorus Magnesium Direct Bilirubin AST ALT Alkaline Phosphatase Lactate Dehydrogenase Troponin T C-Reactive Protein Total Protein Albumin Prealbumin Triglycerides Cholesterol LDL Cholesterol Direct HDL Cholesterol Urine pH Urine WBC (Auto) Urine Creatinine Urine Total Protein Fluid Total Protein Vancomycin Trough Rheumatoid Factor Complement C4 Miscellaneous Test Crossmatch 10/12/16 10/12/16 10/12/16 04:40 04:40 05:44 WBC 22.5 H RBC 2.88 L Hgb 8.8 L Hct 26.8 L MCV MCH MCHC RDW 17.8 H Plt Count Lymph % (Auto) Simpson % (Auto) Lymph # Simpson # Baso # Seg Neutrophils % Seg Neuts % (Manual) Lymphocytes % (Manual) Monocytes % (Manual) Eosinophils % (Manual) Basophils % (Manual) Nucleated RBC % Seg Neutrophils # Seg Neutrophils # Man Lymphocytes # (Manual) Monocytes # (Manual) Eosinophils # (Manual) Basophils # (Manual) PT INR Fibrinogen dRVVT Confirm Interp Factor V Activity POC ABG pH POC ABG pCO2 POC ABG pO2 ABG pO2 ABG HCO3 ABG Base Excess ABG Hemoglobin Oxyhemoglobin Sodium 134 L Potassium Chloride 93.0 L Carbon Dioxide BUN 74 H Creatinine 2.5 H Glucose 137 H POC Glucose 158 H Lactic Acid Calcium 8.2 L Phosphorus Magnesium Direct Bilirubin AST ALT Alkaline Phosphatase Lactate Dehydrogenase Troponin T C-Reactive Protein Total Protein Albumin Prealbumin Triglycerides Cholesterol LDL Cholesterol Direct HDL Cholesterol Urine pH Urine WBC (Auto) Urine Creatinine Urine Total Protein Fluid Total Protein Vancomycin Trough Rheumatoid Factor Complement C4 Miscellaneous Test Crossmatch 10/12/16 10/12/16 10/12/16 12:27 18:18 23:46 WBC RBC Hgb Hct MCV MCH MCHC RDW Plt Count Lymph % (Auto) Simpson % (Auto) Lymph # Simpson # Baso # Seg Neutrophils % Seg Neuts % (Manual) Lymphocytes % (Manual) Monocytes % (Manual) Eosinophils % (Manual) Basophils % (Manual) Nucleated RBC % Seg Neutrophils # Seg Neutrophils # Man Lymphocytes # (Manual) Monocytes # (Manual) Eosinophils # (Manual) Basophils # (Manual) PT INR Fibrinogen dRVVT Confirm Interp Factor V Activity POC ABG pH POC ABG pCO2 POC ABG pO2 ABG pO2 ABG HCO3 ABG Base Excess ABG Hemoglobin Oxyhemoglobin Sodium Potassium Chloride Carbon Dioxide BUN Creatinine Glucose POC Glucose 153 H 140 H 150 H Lactic Acid Calcium Phosphorus Magnesium Direct Bilirubin AST ALT Alkaline Phosphatase Lactate Dehydrogenase Troponin T C-Reactive Protein Total Protein Albumin Prealbumin Triglycerides Cholesterol LDL Cholesterol Direct HDL Cholesterol Urine pH Urine WBC (Auto) Urine Creatinine Urine Total Protein Fluid Total Protein Vancomycin Trough Rheumatoid Factor Complement C4 Miscellaneous Test Crossmatch 10/13/16 10/13/16 10/13/16 06:22 09:20 12:29 WBC RBC Hgb Hct MCV MCH MCHC RDW Plt Count Lymph % (Auto) Simpson % (Auto) Lymph # Simpson # Baso # Seg Neutrophils % Seg Neuts % (Manual) Lymphocytes % (Manual) Monocytes % (Manual) Eosinophils % (Manual) Basophils % (Manual) Nucleated RBC % Seg Neutrophils # Seg Neutrophils # Man Lymphocytes # (Manual) Monocytes # (Manual) Eosinophils # (Manual) Basophils # (Manual) PT INR Fibrinogen dRVVT Confirm Interp Factor V Activity POC ABG pH POC ABG pCO2 POC ABG pO2 ABG pO2 ABG HCO3 ABG Base Excess ABG Hemoglobin Oxyhemoglobin Sodium Potassium Chloride Carbon Dioxide BUN Creatinine Glucose POC Glucose 165 H 193 H Lactic Acid Calcium Phosphorus Magnesium Direct Bilirubin AST ALT Alkaline Phosphatase Lactate Dehydrogenase Troponin T C-Reactive Protein Total Protein Albumin Prealbumin Triglycerides Cholesterol LDL Cholesterol Direct HDL Cholesterol Urine pH Urine WBC (Auto) Urine Creatinine Urine Total Protein Fluid Total Protein Vancomycin Trough Rheumatoid Factor Complement C4 Miscellaneous Test Flexitest 1 H Crossmatch 10/13/16 10/13/16 10/13/16 18:09 Unknown Unknown WBC 23.4 H RBC 2.83 L Hgb 8.7 L Hct 26.1 L MCV MCH MCHC RDW 18.1 H Plt Count Lymph % (Auto) Simpson % (Auto) Lymph # Simpson # Baso # Seg Neutrophils % Seg Neuts % (Manual) Lymphocytes % (Manual) Monocytes % (Manual) Eosinophils % (Manual) Basophils % (Manual) Nucleated RBC % Seg Neutrophils # Seg Neutrophils # Man Lymphocytes # (Manual) Monocytes # (Manual) Eosinophils # (Manual) Basophils # (Manual) PT INR Fibrinogen dRVVT Confirm Interp Factor V Activity POC ABG pH POC ABG pCO2 POC ABG pO2 ABG pO2 ABG HCO3 ABG Base Excess ABG Hemoglobin Oxyhemoglobin Sodium Potassium Chloride 95.8 L Carbon Dioxide BUN 82 H Creatinine 2.6 H Glucose 152 H POC Glucose 166 H Lactic Acid Calcium Phosphorus Magnesium Direct Bilirubin AST ALT Alkaline Phosphatase Lactate Dehydrogenase Troponin T C-Reactive Protein Total Protein Albumin Prealbumin Triglycerides Cholesterol LDL Cholesterol Direct HDL Cholesterol Urine pH Urine WBC (Auto) Urine Creatinine Urine Total Protein Fluid Total Protein Vancomycin Trough Rheumatoid Factor Complement C4 Miscellaneous Test Crossmatch 10/14/16 10/14/16 10/14/16 05:38 06:35 08:10 WBC 20.7 H RBC 2.81 L Hgb 8.4 L Hct 27.2 L MCV MCH MCHC RDW 19.4 H Plt Count Lymph % (Auto) Simpson % (Auto) Lymph # Simpson # Baso # Seg Neutrophils % Seg Neuts % (Manual) Lymphocytes % (Manual) Monocytes % (Manual) Eosinophils % (Manual) Basophils % (Manual) Nucleated RBC % Seg Neutrophils # Seg Neutrophils # Man Lymphocytes # (Manual) Monocytes # (Manual) Eosinophils # (Manual) Basophils # (Manual) PT INR Fibrinogen dRVVT Confirm Interp Factor V Activity POC ABG pH POC ABG pCO2 POC ABG pO2 ABG pO2 ABG HCO3 ABG Base Excess ABG Hemoglobin Oxyhemoglobin Sodium Potassium Chloride Carbon Dioxide BUN 58 H Creatinine 1.9 H Glucose 169 H POC Glucose 195 H Lactic Acid Calcium Phosphorus Magnesium Direct Bilirubin AST ALT Alkaline Phosphatase Lactate Dehydrogenase Troponin T C-Reactive Protein Total Protein Albumin Prealbumin Triglycerides Cholesterol LDL Cholesterol Direct HDL Cholesterol Urine pH Urine WBC (Auto) Urine Creatinine Urine Total Protein Fluid Total Protein Vancomycin Trough Rheumatoid Factor Complement C4 Miscellaneous Test Crossmatch 10/14/16 10/14/16 10/14/16 11:44 17:13 23:28 WBC RBC Hgb Hct MCV MCH MCHC RDW Plt Count Lymph % (Auto) Simpson % (Auto) Lymph # Simpson # Baso # Seg Neutrophils % Seg Neuts % (Manual) Lymphocytes % (Manual) Monocytes % (Manual) Eosinophils % (Manual) Basophils % (Manual) Nucleated RBC % Seg Neutrophils # Seg Neutrophils # Man Lymphocytes # (Manual) Monocytes # (Manual) Eosinophils # (Manual) Basophils # (Manual) PT INR Fibrinogen dRVVT Confirm Interp Factor V Activity POC ABG pH POC ABG pCO2 POC ABG pO2 ABG pO2 ABG HCO3 ABG Base Excess ABG Hemoglobin Oxyhemoglobin Sodium Potassium Chloride Carbon Dioxide BUN Creatinine Glucose POC Glucose 174 H 121 H 151 H Lactic Acid Calcium Phosphorus Magnesium Direct Bilirubin AST ALT Alkaline Phosphatase Lactate Dehydrogenase Troponin T C-Reactive Protein Total Protein Albumin Prealbumin Triglycerides Cholesterol LDL Cholesterol Direct HDL Cholesterol Urine pH Urine WBC (Auto) Urine Creatinine Urine Total Protein Fluid Total Protein Vancomycin Trough Rheumatoid Factor Complement C4 Miscellaneous Test Crossmatch 10/15/16 10/15/16 10/15/16 05:06 12:26 17:48 WBC RBC Hgb Hct MCV MCH MCHC RDW Plt Count Lymph % (Auto) Simpson % (Auto) Lymph # Simpson # Baso # Seg Neutrophils % Seg Neuts % (Manual) Lymphocytes % (Manual) Monocytes % (Manual) Eosinophils % (Manual) Basophils % (Manual) Nucleated RBC % Seg Neutrophils # Seg Neutrophils # Man Lymphocytes # (Manual) Monocytes # (Manual) Eosinophils # (Manual) Basophils # (Manual) PT INR Fibrinogen dRVVT Confirm Interp Factor V Activity POC ABG pH POC ABG pCO2 POC ABG pO2 ABG pO2 ABG HCO3 ABG Base Excess ABG Hemoglobin Oxyhemoglobin Sodium Potassium Chloride Carbon Dioxide BUN Creatinine Glucose POC Glucose 151 H 149 H 153 H Lactic Acid Calcium Phosphorus Magnesium Direct Bilirubin AST ALT Alkaline Phosphatase Lactate Dehydrogenase Troponin T C-Reactive Protein Total Protein Albumin Prealbumin Triglycerides Cholesterol LDL Cholesterol Direct HDL Cholesterol Urine pH Urine WBC (Auto) Urine Creatinine Urine Total Protein Fluid Total Protein Vancomycin Trough Rheumatoid Factor Complement C4 Miscellaneous Test Crossmatch 10/15/16 10/15/16 10/16/16 Unknown Unknown 00:02 WBC 23.4 H RBC 2.78 L Hgb 8.5 L Hct 25.7 L MCV MCH MCHC RDW 18.7 H Plt Count Lymph % (Auto) Simpson % (Auto) Lymph # Simpson # Baso # Seg Neutrophils % Seg Neuts % (Manual) Lymphocytes % (Manual) Monocytes % (Manual) Eosinophils % (Manual) Basophils % (Manual) Nucleated RBC % Seg Neutrophils # Seg Neutrophils # Man Lymphocytes # (Manual) Monocytes # (Manual) Eosinophils # (Manual) Basophils # (Manual) PT INR Fibrinogen dRVVT Confirm Interp Factor V Activity POC ABG pH POC ABG pCO2 POC ABG pO2 ABG pO2 ABG HCO3 ABG Base Excess ABG Hemoglobin Oxyhemoglobin Sodium Potassium Chloride Carbon Dioxide BUN 73 H Creatinine 2.3 H Glucose 120 H POC Glucose 137 H Lactic Acid Calcium Phosphorus Magnesium Direct Bilirubin AST ALT Alkaline Phosphatase Lactate Dehydrogenase Troponin T C-Reactive Protein Total Protein Albumin Prealbumin Triglycerides Cholesterol LDL Cholesterol Direct HDL Cholesterol Urine pH Urine WBC (Auto) Urine Creatinine Urine Total Protein Fluid Total Protein Vancomycin Trough Rheumatoid Factor Complement C4 Miscellaneous Test Crossmatch 10/16/16 10/16/16 10/16/16 05:44 06:25 06:25 WBC 22.5 H RBC 2.76 L Hgb 8.3 L Hct 25.2 L MCV MCH MCHC RDW 18.3 H Plt Count Lymph % (Auto) Simpson % (Auto) Lymph # Simpson # Baso # Seg Neutrophils % Seg Neuts % (Manual) Lymphocytes % (Manual) Monocytes % (Manual) Eosinophils % (Manual) Basophils % (Manual) Nucleated RBC % Seg Neutrophils # Seg Neutrophils # Man Lymphocytes # (Manual) Monocytes # (Manual) Eosinophils # (Manual) Basophils # (Manual) PT INR Fibrinogen dRVVT Confirm Interp Factor V Activity POC ABG pH POC ABG pCO2 POC ABG pO2 ABG pO2 ABG HCO3 ABG Base Excess ABG Hemoglobin Oxyhemoglobin Sodium Potassium Chloride Carbon Dioxide BUN 92 H Creatinine 3.0 H Glucose 138 H POC Glucose 110 H Lactic Acid Calcium Phosphorus Magnesium Direct Bilirubin AST ALT Alkaline Phosphatase Lactate Dehydrogenase Troponin T C-Reactive Protein Total Protein Albumin Prealbumin Triglycerides Cholesterol LDL Cholesterol Direct HDL Cholesterol Urine pH Urine WBC (Auto) Urine Creatinine Urine Total Protein Fluid Total Protein Vancomycin Trough Rheumatoid Factor Complement C4 Miscellaneous Test Crossmatch 10/16/16 10/16/16 10/16/16 11:27 11:48 17:36 WBC RBC Hgb Hct MCV MCH MCHC RDW Plt Count Lymph % (Auto) Simpson % (Auto) Lymph # Simpson # Baso # Seg Neutrophils % Seg Neuts % (Manual) Lymphocytes % (Manual) Monocytes % (Manual) Eosinophils % (Manual) Basophils % (Manual) Nucleated RBC % Seg Neutrophils # Seg Neutrophils # Man Lymphocytes # (Manual) Monocytes # (Manual) Eosinophils # (Manual) Basophils # (Manual) PT INR Fibrinogen dRVVT Confirm Interp Factor V Activity POC ABG pH 7.582 H POC ABG pCO2 27.4 L POC ABG pO2 110 H ABG pO2 ABG HCO3 ABG Base Excess ABG Hemoglobin Oxyhemoglobin Sodium Potassium Chloride Carbon Dioxide BUN Creatinine Glucose POC Glucose 121 H 133 H Lactic Acid Calcium Phosphorus Magnesium Direct Bilirubin AST ALT Alkaline Phosphatase Lactate Dehydrogenase Troponin T C-Reactive Protein Total Protein Albumin Prealbumin Triglycerides Cholesterol LDL Cholesterol Direct HDL Cholesterol Urine pH Urine WBC (Auto) Urine Creatinine Urine Total Protein Fluid Total Protein Vancomycin Trough Rheumatoid Factor Complement C4 Miscellaneous Test Crossmatch 10/16/16 10/17/16 10/17/16 20:48 04:24 04:24 WBC 21.4 H RBC 2.72 L Hgb 8.0 L Hct 25.2 L MCV MCH MCHC RDW 18.0 H Plt Count Lymph % (Auto) Simpson % (Auto) Lymph # Simpson # Baso # Seg Neutrophils % Seg Neuts % (Manual) Lymphocytes % (Manual) Monocytes % (Manual) Eosinophils % (Manual) Basophils % (Manual) Nucleated RBC % Seg Neutrophils # Seg Neutrophils # Man Lymphocytes # (Manual) Monocytes # (Manual) Eosinophils # (Manual) Basophils # (Manual) PT INR Fibrinogen dRVVT Confirm Interp Factor V Activity POC ABG pH 7.561 H POC ABG pCO2 24.4 L POC ABG pO2 77 L ABG pO2 ABG HCO3 ABG Base Excess ABG Hemoglobin Oxyhemoglobin Sodium 148 H Potassium Chloride Carbon Dioxide BUN 104 H Creatinine 3.0 H Glucose 149 H POC Glucose Lactic Acid Calcium Phosphorus Magnesium Direct Bilirubin AST ALT Alkaline Phosphatase 138 H Lactate Dehydrogenase Troponin T C-Reactive Protein Total Protein 6.2 L Albumin 1.5 L Prealbumin Triglycerides Cholesterol LDL Cholesterol Direct HDL Cholesterol Urine pH Urine WBC (Auto) Urine Creatinine Urine Total Protein Fluid Total Protein Vancomycin Trough Rheumatoid Factor Complement C4 Miscellaneous Test Crossmatch 10/17/16 10/17/16 10/17/16 06:02 12:17 17:14 WBC RBC Hgb Hct MCV MCH MCHC RDW Plt Count Lymph % (Auto) Simpson % (Auto) Lymph # Simpson # Baso # Seg Neutrophils % Seg Neuts % (Manual) Lymphocytes % (Manual) Monocytes % (Manual) Eosinophils % (Manual) Basophils % (Manual) Nucleated RBC % Seg Neutrophils # Seg Neutrophils # Man Lymphocytes # (Manual) Monocytes # (Manual) Eosinophils # (Manual) Basophils # (Manual) PT INR Fibrinogen dRVVT Confirm Interp Factor V Activity POC ABG pH POC ABG pCO2 POC ABG pO2 ABG pO2 ABG HCO3 ABG Base Excess ABG Hemoglobin Oxyhemoglobin Sodium Potassium Chloride Carbon Dioxide BUN Creatinine Glucose POC Glucose 170 H 167 H 126 H Lactic Acid Calcium Phosphorus Magnesium Direct Bilirubin AST ALT Alkaline Phosphatase Lactate Dehydrogenase Troponin T C-Reactive Protein Total Protein Albumin Prealbumin Triglycerides Cholesterol LDL Cholesterol Direct HDL Cholesterol Urine pH Urine WBC (Auto) Urine Creatinine Urine Total Protein Fluid Total Protein Vancomycin Trough Rheumatoid Factor Complement C4 Miscellaneous Test Crossmatch 10/17/16 10/18/16 10/18/16 23:17 04:00 04:00 WBC 20.7 H RBC 2.47 L Hgb 7.4 L Hct 22.9 L MCV MCH MCHC RDW 17.5 H Plt Count Lymph % (Auto) Simpson % (Auto) Lymph # Simpson # Baso # Seg Neutrophils % Seg Neuts % (Manual) Lymphocytes % (Manual) Monocytes % (Manual) Eosinophils % (Manual) Basophils % (Manual) Nucleated RBC % Seg Neutrophils # Seg Neutrophils # Man Lymphocytes # (Manual) Monocytes # (Manual) Eosinophils # (Manual) Basophils # (Manual) PT INR Fibrinogen dRVVT Confirm Interp Factor V Activity POC ABG pH POC ABG pCO2 POC ABG pO2 ABG pO2 ABG HCO3 ABG Base Excess ABG Hemoglobin Oxyhemoglobin Sodium 149 H Potassium Chloride 107.9 H Carbon Dioxide 20 L BUN 117 H Creatinine 3.2 H Glucose 119 H POC Glucose 121 H Lactic Acid Calcium Phosphorus Magnesium Direct Bilirubin AST ALT Alkaline Phosphatase Lactate Dehydrogenase Troponin T C-Reactive Protein Total Protein Albumin Prealbumin Triglycerides Cholesterol LDL Cholesterol Direct HDL Cholesterol Urine pH Urine WBC (Auto) Urine Creatinine Urine Total Protein Fluid Total Protein Vancomycin Trough Rheumatoid Factor Complement C4 Miscellaneous Test Crossmatch 10/18/16 10/18/16 10/18/16 05:23 10:46 17:30 WBC RBC Hgb Hct MCV MCH MCHC RDW Plt Count Lymph % (Auto) Simpson % (Auto) Lymph # Simpson # Baso # Seg Neutrophils % Seg Neuts % (Manual) Lymphocytes % (Manual) Monocytes % (Manual) Eosinophils % (Manual) Basophils % (Manual) Nucleated RBC % Seg Neutrophils # Seg Neutrophils # Man Lymphocytes # (Manual) Monocytes # (Manual) Eosinophils # (Manual) Basophils # (Manual) PT INR Fibrinogen dRVVT Confirm Interp Factor V Activity POC ABG pH POC ABG pCO2 POC ABG pO2 ABG pO2 ABG HCO3 ABG Base Excess ABG Hemoglobin Oxyhemoglobin Sodium Potassium Chloride Carbon Dioxide BUN Creatinine Glucose POC Glucose 119 H 155 H 124 H Lactic Acid Calcium Phosphorus Magnesium Direct Bilirubin AST ALT Alkaline Phosphatase Lactate Dehydrogenase Troponin T C-Reactive Protein Total Protein Albumin Prealbumin Triglycerides Cholesterol LDL Cholesterol Direct HDL Cholesterol Urine pH Urine WBC (Auto) Urine Creatinine Urine Total Protein Fluid Total Protein Vancomycin Trough Rheumatoid Factor Complement C4 Miscellaneous Test Crossmatch 10/19/16 10/19/16 10/19/16 04:00 04:00 05:25 WBC 17.4 H RBC 2.54 L Hgb 7.7 L Hct 23.6 L MCV MCH MCHC RDW 17.3 H Plt Count Lymph % (Auto) Simpson % (Auto) Lymph # Simpson # Baso # Seg Neutrophils % Seg Neuts % (Manual) Lymphocytes % (Manual) Monocytes % (Manual) Eosinophils % (Manual) Basophils % (Manual) Nucleated RBC % Seg Neutrophils # Seg Neutrophils # Man Lymphocytes # (Manual) Monocytes # (Manual) Eosinophils # (Manual) Basophils # (Manual) PT INR Fibrinogen dRVVT Confirm Interp Factor V Activity POC ABG pH POC ABG pCO2 POC ABG pO2 ABG pO2 ABG HCO3 ABG Base Excess ABG Hemoglobin Oxyhemoglobin Sodium Potassium Chloride Carbon Dioxide BUN 72 H Creatinine 2.1 H Glucose 116 H POC Glucose 119 H Lactic Acid Calcium Phosphorus Magnesium Direct Bilirubin AST ALT Alkaline Phosphatase Lactate Dehydrogenase Troponin T C-Reactive Protein Total Protein Albumin Prealbumin Triglycerides Cholesterol LDL Cholesterol Direct HDL Cholesterol Urine pH Urine WBC (Auto) Urine Creatinine Urine Total Protein Fluid Total Protein Vancomycin Trough Rheumatoid Factor Complement C4 Miscellaneous Test Crossmatch 10/19/16 10/19/16 10/20/16 11:46 23:59 06:00 WBC RBC Hgb Hct MCV MCH MCHC RDW Plt Count Lymph % (Auto) Simpson % (Auto) Lymph # Simpson # Baso # Seg Neutrophils % Seg Neuts % (Manual) Lymphocytes % (Manual) Monocytes % (Manual) Eosinophils % (Manual) Basophils % (Manual) Nucleated RBC % Seg Neutrophils # Seg Neutrophils # Man Lymphocytes # (Manual) Monocytes # (Manual) Eosinophils # (Manual) Basophils # (Manual) PT INR Fibrinogen dRVVT Confirm Interp Factor V Activity POC ABG pH POC ABG pCO2 POC ABG pO2 ABG pO2 ABG HCO3 ABG Base Excess ABG Hemoglobin Oxyhemoglobin Sodium Potassium Chloride Carbon Dioxide 17 L BUN 94 H Creatinine 2.7 H Glucose POC Glucose 116 H 117 H Lactic Acid Calcium Phosphorus Magnesium Direct Bilirubin AST ALT Alkaline Phosphatase Lactate Dehydrogenase Troponin T C-Reactive Protein Total Protein Albumin Prealbumin Triglycerides Cholesterol LDL Cholesterol Direct HDL Cholesterol Urine pH Urine WBC (Auto) Urine Creatinine Urine Total Protein Fluid Total Protein Vancomycin Trough Rheumatoid Factor Complement C4 Miscellaneous Test Crossmatch 10/20/16 10/20/16 10/20/16 06:00 11:49 16:00 WBC 19.7 H RBC 2.51 L Hgb 7.7 L Hct 23.5 L MCV MCH MCHC RDW 17.5 H Plt Count Lymph % (Auto) Simpson % (Auto) Lymph # Simpson # Baso # Seg Neutrophils % Seg Neuts % (Manual) Lymphocytes % (Manual) Monocytes % (Manual) Eosinophils % (Manual) Basophils % (Manual) Nucleated RBC % Seg Neutrophils # Seg Neutrophils # Man Lymphocytes # (Manual) Monocytes # (Manual) Eosinophils # (Manual) Basophils # (Manual) PT INR Fibrinogen dRVVT Confirm Interp Factor V Activity POC ABG pH POC ABG pCO2 POC ABG pO2 ABG pO2 ABG HCO3 ABG Base Excess ABG Hemoglobin Oxyhemoglobin Sodium Potassium Chloride Carbon Dioxide BUN Creatinine Glucose POC Glucose 117 H Lactic Acid Calcium Phosphorus Magnesium Direct Bilirubin AST ALT Alkaline Phosphatase Lactate Dehydrogenase Troponin T C-Reactive Protein Total Protein Albumin Prealbumin Triglycerides Cholesterol LDL Cholesterol Direct HDL Cholesterol Urine pH Urine WBC (Auto) Urine Creatinine Urine Total Protein Fluid Total Protein Vancomycin Trough Rheumatoid Factor Complement C4 Miscellaneous Test Flexitest 1 H Crossmatch 10/20/16 10/20/16 10/21/16 18:36 23:39 04:00 WBC RBC Hgb Hct MCV MCH MCHC RDW Plt Count Lymph % (Auto) Simpson % (Auto) Lymph # Simpson # Baso # Seg Neutrophils % Seg Neuts % (Manual) Lymphocytes % (Manual) Monocytes % (Manual) Eosinophils % (Manual) Basophils % (Manual) Nucleated RBC % Seg Neutrophils # Seg Neutrophils # Man Lymphocytes # (Manual) Monocytes # (Manual) Eosinophils # (Manual) Basophils # (Manual) PT INR Fibrinogen dRVVT Confirm Interp Factor V Activity POC ABG pH POC ABG pCO2 POC ABG pO2 ABG pO2 ABG HCO3 ABG Base Excess ABG Hemoglobin Oxyhemoglobin Sodium Potassium 5.4 H D Chloride Carbon Dioxide 15 L BUN 110 H Creatinine 3.0 H Glucose POC Glucose 127 H 114 H Lactic Acid Calcium Phosphorus Magnesium Direct Bilirubin AST ALT Alkaline Phosphatase Lactate Dehydrogenase Troponin T C-Reactive Protein Total Protein Albumin Prealbumin Triglycerides Cholesterol LDL Cholesterol Direct HDL Cholesterol Urine pH Urine WBC (Auto) Urine Creatinine Urine Total Protein Fluid Total Protein Vancomycin Trough Rheumatoid Factor Complement C4 Miscellaneous Test Crossmatch 10/21/16 10/21/16 10/22/16 05:54 23:46 05:18 WBC RBC Hgb Hct MCV MCH MCHC RDW Plt Count Lymph % (Auto) Simpson % (Auto) Lymph # Simpson # Baso # Seg Neutrophils % Seg Neuts % (Manual) Lymphocytes % (Manual) Monocytes % (Manual) Eosinophils % (Manual) Basophils % (Manual) Nucleated RBC % Seg Neutrophils # Seg Neutrophils # Man Lymphocytes # (Manual) Monocytes # (Manual) Eosinophils # (Manual) Basophils # (Manual) PT INR Fibrinogen dRVVT Confirm Interp Factor V Activity POC ABG pH POC ABG pCO2 POC ABG pO2 ABG pO2 ABG HCO3 ABG Base Excess ABG Hemoglobin Oxyhemoglobin Sodium Potassium Chloride Carbon Dioxide BUN Creatinine Glucose POC Glucose 119 H 108 H 109 H Lactic Acid Calcium Phosphorus Magnesium Direct Bilirubin AST ALT Alkaline Phosphatase Lactate Dehydrogenase Troponin T C-Reactive Protein Total Protein Albumin Prealbumin Triglycerides Cholesterol LDL Cholesterol Direct HDL Cholesterol Urine pH Urine WBC (Auto) Urine Creatinine Urine Total Protein Fluid Total Protein Vancomycin Trough Rheumatoid Factor Complement C4 Miscellaneous Test Crossmatch 10/22/16 10/22/16 10/22/16 06:40 06:40 06:40 WBC 14.0 H RBC 2.03 L Hgb 7.0 L Hct 20.5 L MCV 98 H MCH 34 H MCHC 35 H RDW 17.8 H Plt Count Lymph % (Auto) Simpson % (Auto) 9.9 H Lymph # Simpson # 1.4 H Baso # 0.2 H Seg Neutrophils % 72.0 H Seg Neuts % (Manual) Lymphocytes % (Manual) Monocytes % (Manual) Eosinophils % (Manual) Basophils % (Manual) Nucleated RBC % Seg Neutrophils # 10.0 H Seg Neutrophils # Man Lymphocytes # (Manual) Monocytes # (Manual) Eosinophils # (Manual) Basophils # (Manual) PT INR Fibrinogen dRVVT Confirm Interp Factor V Activity POC ABG pH POC ABG pCO2 POC ABG pO2 ABG pO2 ABG HCO3 ABG Base Excess ABG Hemoglobin Oxyhemoglobin Sodium 130 L D Potassium Chloride 92.4 L Carbon Dioxide 20 L BUN 50 H Creatinine 1.6 H Glucose 589 H* POC Glucose Lactic Acid Calcium 7.8 L D Phosphorus Magnesium 1.60 L Direct Bilirubin AST ALT Alkaline Phosphatase Lactate Dehydrogenase Troponin T C-Reactive Protein Total Protein Albumin Prealbumin Triglycerides Cholesterol LDL Cholesterol Direct HDL Cholesterol Urine pH Urine WBC (Auto) Urine Creatinine Urine Total Protein Fluid Total Protein Vancomycin Trough Rheumatoid Factor Complement C4 Miscellaneous Test Crossmatch 10/22/16 10/22/16 10/22/16 11:39 16:44 23:36 WBC RBC Hgb Hct MCV MCH MCHC RDW Plt Count Lymph % (Auto) Simpson % (Auto) Lymph # Simpson # Baso # Seg Neutrophils % Seg Neuts % (Manual) Lymphocytes % (Manual) Monocytes % (Manual) Eosinophils % (Manual) Basophils % (Manual) Nucleated RBC % Seg Neutrophils # Seg Neutrophils # Man Lymphocytes # (Manual) Monocytes # (Manual) Eosinophils # (Manual) Basophils # (Manual) PT INR Fibrinogen dRVVT Confirm Interp Factor V Activity POC ABG pH POC ABG pCO2 POC ABG pO2 ABG pO2 ABG HCO3 ABG Base Excess ABG Hemoglobin Oxyhemoglobin Sodium Potassium Chloride Carbon Dioxide BUN Creatinine Glucose POC Glucose 142 H 163 H 123 H Lactic Acid Calcium Phosphorus Magnesium Direct Bilirubin AST ALT Alkaline Phosphatase Lactate Dehydrogenase Troponin T C-Reactive Protein Total Protein Albumin Prealbumin Triglycerides Cholesterol LDL Cholesterol Direct HDL Cholesterol Urine pH Urine WBC (Auto) Urine Creatinine Urine Total Protein Fluid Total Protein Vancomycin Trough Rheumatoid Factor Complement C4 Miscellaneous Test Crossmatch 10/23/16 10/23/16 10/23/16 04:58 06:00 12:12 WBC RBC Hgb Hct MCV MCH MCHC RDW Plt Count Lymph % (Auto) Simpson % (Auto) Lymph # Simpson # Baso # Seg Neutrophils % Seg Neuts % (Manual) Lymphocytes % (Manual) Monocytes % (Manual) Eosinophils % (Manual) Basophils % (Manual) Nucleated RBC % Seg Neutrophils # Seg Neutrophils # Man Lymphocytes # (Manual) Monocytes # (Manual) Eosinophils # (Manual) Basophils # (Manual) PT INR Fibrinogen dRVVT Confirm Interp Factor V Activity POC ABG pH POC ABG pCO2 POC ABG pO2 ABG pO2 ABG HCO3 ABG Base Excess ABG Hemoglobin Oxyhemoglobin Sodium 133 L Potassium 3.5 L Chloride 96.1 L Carbon Dioxide 18 L BUN 76 H Creatinine 2.1 H Glucose POC Glucose 133 H 138 H Lactic Acid Calcium 8.3 L Phosphorus Magnesium Direct Bilirubin AST ALT Alkaline Phosphatase Lactate Dehydrogenase Troponin T C-Reactive Protein Total Protein Albumin Prealbumin Triglycerides Cholesterol LDL Cholesterol Direct HDL Cholesterol Urine pH Urine WBC (Auto) Urine Creatinine Urine Total Protein Fluid Total Protein Vancomycin Trough Rheumatoid Factor Complement C4 Miscellaneous Test Crossmatch 10/23/16 10/23/16 10/24/16 16:53 23:37 04:00 WBC RBC Hgb Hct MCV MCH MCHC RDW Plt Count Lymph % (Auto) Simpson % (Auto) Lymph # Simpson # Baso # Seg Neutrophils % Seg Neuts % (Manual) Lymphocytes % (Manual) Monocytes % (Manual) Eosinophils % (Manual) Basophils % (Manual) Nucleated RBC % Seg Neutrophils # Seg Neutrophils # Man Lymphocytes # (Manual) Monocytes # (Manual) Eosinophils # (Manual) Basophils # (Manual) PT INR Fibrinogen dRVVT Confirm Interp Factor V Activity POC ABG pH POC ABG pCO2 POC ABG pO2 ABG pO2 ABG HCO3 ABG Base Excess ABG Hemoglobin Oxyhemoglobin Sodium 131 L Potassium Chloride 94.5 L Carbon Dioxide 19 L BUN 97 H Creatinine 2.6 H Glucose 110 H POC Glucose 125 H 123 H Lactic Acid Calcium 8.3 L Phosphorus Magnesium Direct Bilirubin AST ALT Alkaline Phosphatase Lactate Dehydrogenase Troponin T C-Reactive Protein Total Protein Albumin Prealbumin Triglycerides Cholesterol LDL Cholesterol Direct HDL Cholesterol Urine pH Urine WBC (Auto) Urine Creatinine Urine Total Protein Fluid Total Protein Vancomycin Trough Rheumatoid Factor Complement C4 Miscellaneous Test Crossmatch 10/24/16 10/24/16 10/24/16 07:49 11:39 17:52 WBC RBC Hgb 6.0 L Hct 19.7 L* MCV MCH MCHC RDW Plt Count Lymph % (Auto) Simpson % (Auto) Lymph # Simpson # Baso # Seg Neutrophils % Seg Neuts % (Manual) Lymphocytes % (Manual) Monocytes % (Manual) Eosinophils % (Manual) Basophils % (Manual) Nucleated RBC % Seg Neutrophils # Seg Neutrophils # Man Lymphocytes # (Manual) Monocytes # (Manual) Eosinophils # (Manual) Basophils # (Manual) PT INR Fibrinogen dRVVT Confirm Interp Factor V Activity POC ABG pH POC ABG pCO2 POC ABG pO2 ABG pO2 ABG HCO3 ABG Base Excess ABG Hemoglobin Oxyhemoglobin Sodium Potassium Chloride Carbon Dioxide BUN Creatinine Glucose POC Glucose 106 H 158 H Lactic Acid Calcium Phosphorus Magnesium Direct Bilirubin AST ALT Alkaline Phosphatase Lactate Dehydrogenase Troponin T C-Reactive Protein Total Protein Albumin Prealbumin Triglycerides Cholesterol LDL Cholesterol Direct HDL Cholesterol Urine pH Urine WBC (Auto) Urine Creatinine Urine Total Protein Fluid Total Protein Vancomycin Trough Rheumatoid Factor Complement C4 Miscellaneous Test Crossmatch 10/24/16 10/24/16 10/24/16 20:00 22:27 Unknown WBC RBC Hgb 9.4 L D Hct 27.5 L D MCV MCH MCHC RDW Plt Count Lymph % (Auto) Simpson % (Auto) Lymph # Simpson # Baso # Seg Neutrophils % Seg Neuts % (Manual) Lymphocytes % (Manual) Monocytes % (Manual) Eosinophils % (Manual) Basophils % (Manual) Nucleated RBC % Seg Neutrophils # Seg Neutrophils # Man Lymphocytes # (Manual) Monocytes # (Manual) Eosinophils # (Manual) Basophils # (Manual) PT INR Fibrinogen dRVVT Confirm Interp Factor V Activity POC ABG pH POC ABG pCO2 POC ABG pO2 ABG pO2 ABG HCO3 ABG Base Excess ABG Hemoglobin Oxyhemoglobin Sodium Potassium Chloride Carbon Dioxide BUN Creatinine Glucose POC Glucose 125 H Lactic Acid Calcium Phosphorus Magnesium Direct Bilirubin AST ALT Alkaline Phosphatase Lactate Dehydrogenase Troponin T C-Reactive Protein Total Protein Albumin Prealbumin Triglycerides Cholesterol LDL Cholesterol Direct HDL Cholesterol Urine pH Urine WBC (Auto) Urine Creatinine Urine Total Protein Fluid Total Protein Vancomycin Trough Rheumatoid Factor Complement C4 Miscellaneous Test Crossmatch See Detail 10/25/16 10/25/16 10/25/16 04:00 04:00 04:00 WBC 14.2 H RBC 2.98 L Hgb 9.0 L Hct 26.2 L MCV MCH MCHC RDW 16.6 H Plt Count Lymph % (Auto) Simpson % (Auto) 10.7 H Lymph # Simpson # 1.5 H Baso # Seg Neutrophils % 73.6 H Seg Neuts % (Manual) Lymphocytes % (Manual) Monocytes % (Manual) Eosinophils % (Manual) Basophils % (Manual) Nucleated RBC % Seg Neutrophils # 10.5 H Seg Neutrophils # Man Lymphocytes # (Manual) Monocytes # (Manual) Eosinophils # (Manual) Basophils # (Manual) PT INR Fibrinogen dRVVT Confirm Interp Factor V Activity POC ABG pH POC ABG pCO2 POC ABG pO2 ABG pO2 ABG HCO3 ABG Base Excess ABG Hemoglobin Oxyhemoglobin Sodium 132 L Potassium Chloride 94.7 L Carbon Dioxide BUN 51 H Creatinine 1.6 H Glucose 130 H POC Glucose Lactic Acid Calcium 8.3 L Phosphorus 1.60 L D Magnesium Direct Bilirubin AST ALT Alkaline Phosphatase Lactate Dehydrogenase Troponin T C-Reactive Protein Total Protein Albumin Prealbumin Triglycerides Cholesterol LDL Cholesterol Direct HDL Cholesterol Urine pH Urine WBC (Auto) Urine Creatinine Urine Total Protein Fluid Total Protein Vancomycin Trough Rheumatoid Factor Complement C4 Miscellaneous Test Crossmatch 10/25/16 10/25/16 10/25/16 04:32 11:48 17:22 WBC RBC Hgb Hct MCV MCH MCHC RDW Plt Count Lymph % (Auto) Simpson % (Auto) Lymph # Simpson # Baso # Seg Neutrophils % Seg Neuts % (Manual) Lymphocytes % (Manual) Monocytes % (Manual) Eosinophils % (Manual) Basophils % (Manual) Nucleated RBC % Seg Neutrophils # Seg Neutrophils # Man Lymphocytes # (Manual) Monocytes # (Manual) Eosinophils # (Manual) Basophils # (Manual) PT INR Fibrinogen dRVVT Confirm Interp Factor V Activity POC ABG pH POC ABG pCO2 POC ABG pO2 ABG pO2 ABG HCO3 ABG Base Excess ABG Hemoglobin Oxyhemoglobin Sodium Potassium Chloride Carbon Dioxide BUN Creatinine Glucose POC Glucose 124 H 171 H 120 H Lactic Acid Calcium Phosphorus Magnesium Direct Bilirubin AST ALT Alkaline Phosphatase Lactate Dehydrogenase Troponin T C-Reactive Protein Total Protein Albumin Prealbumin Triglycerides Cholesterol LDL Cholesterol Direct HDL Cholesterol Urine pH Urine WBC (Auto) Urine Creatinine Urine Total Protein Fluid Total Protein Vancomycin Trough Rheumatoid Factor Complement C4 Miscellaneous Test Crossmatch 10/26/16 10/26/16 10/26/16 04:54 07:06 07:06 WBC 16.9 H RBC 3.06 L Hgb 9.1 L Hct 26.9 L MCV MCH MCHC RDW 16.9 H Plt Count Lymph % (Auto) Simpson % (Auto) Lymph # Simpson # Baso # Seg Neutrophils % Seg Neuts % (Manual) 71.0 H Lymphocytes % (Manual) 5.0 L Monocytes % (Manual) 12.0 H Eosinophils % (Manual) Basophils % (Manual) Nucleated RBC % Seg Neutrophils # Seg Neutrophils # Man 12.0 H Lymphocytes # (Manual) 0.8 L Monocytes # (Manual) 2.0 H Eosinophils # (Manual) Basophils # (Manual) PT INR Fibrinogen dRVVT Confirm Interp Factor V Activity POC ABG pH POC ABG pCO2 POC ABG pO2 ABG pO2 ABG HCO3 ABG Base Excess ABG Hemoglobin Oxyhemoglobin Sodium 135 L Potassium Chloride 97.1 L Carbon Dioxide BUN 73 H Creatinine 2.2 H Glucose 117 H POC Glucose 123 H Lactic Acid Calcium Phosphorus 1.70 L Magnesium Direct Bilirubin AST ALT Alkaline Phosphatase Lactate Dehydrogenase Troponin T C-Reactive Protein Total Protein Albumin Prealbumin Triglycerides Cholesterol LDL Cholesterol Direct HDL Cholesterol Urine pH Urine WBC (Auto) Urine Creatinine Urine Total Protein Fluid Total Protein Vancomycin Trough Rheumatoid Factor Complement C4 Miscellaneous Test Crossmatch 10/26/16 10/26/16 10/26/16 12:12 17:29 23:42 WBC RBC Hgb Hct MCV MCH MCHC RDW Plt Count Lymph % (Auto) Simpson % (Auto) Lymph # Simpson # Baso # Seg Neutrophils % Seg Neuts % (Manual) Lymphocytes % (Manual) Monocytes % (Manual) Eosinophils % (Manual) Basophils % (Manual) Nucleated RBC % Seg Neutrophils # Seg Neutrophils # Man Lymphocytes # (Manual) Monocytes # (Manual) Eosinophils # (Manual) Basophils # (Manual) PT INR Fibrinogen dRVVT Confirm Interp Factor V Activity POC ABG pH POC ABG pCO2 POC ABG pO2 ABG pO2 ABG HCO3 ABG Base Excess ABG Hemoglobin Oxyhemoglobin Sodium Potassium Chloride Carbon Dioxide BUN Creatinine Glucose POC Glucose 126 H 161 H 118 H Lactic Acid Calcium Phosphorus Magnesium Direct Bilirubin AST ALT Alkaline Phosphatase Lactate Dehydrogenase Troponin T C-Reactive Protein Total Protein Albumin Prealbumin Triglycerides Cholesterol LDL Cholesterol Direct HDL Cholesterol Urine pH Urine WBC (Auto) Urine Creatinine Urine Total Protein Fluid Total Protein Vancomycin Trough Rheumatoid Factor Complement C4 Miscellaneous Test Crossmatch 10/27/16 10/27/16 10/27/16 05:03 06:30 06:30 WBC 13.9 H RBC 3.09 L Hgb 9.2 L Hct 27.5 L MCV MCH MCHC RDW 17.0 H Plt Count Lymph % (Auto) Simpson % (Auto) Lymph # Simpson # Baso # Seg Neutrophils % Seg Neuts % (Manual) 78.0 H Lymphocytes % (Manual) Monocytes % (Manual) Eosinophils % (Manual) Basophils % (Manual) Nucleated RBC % 2.0 H Seg Neutrophils # Seg Neutrophils # Man 10.8 H Lymphocytes # (Manual) Monocytes # (Manual) 1.0 H Eosinophils # (Manual) Basophils # (Manual) PT INR Fibrinogen dRVVT Confirm Interp Factor V Activity POC ABG pH POC ABG pCO2 POC ABG pO2 ABG pO2 ABG HCO3 ABG Base Excess ABG Hemoglobin Oxyhemoglobin Sodium Potassium Chloride Carbon Dioxide BUN 40 H Creatinine 1.5 H Glucose 135 H POC Glucose 107 H Lactic Acid Calcium 8.3 L Phosphorus 1.30 L D Magnesium Direct Bilirubin AST ALT Alkaline Phosphatase Lactate Dehydrogenase Troponin T C-Reactive Protein Total Protein Albumin Prealbumin Triglycerides Cholesterol LDL Cholesterol Direct HDL Cholesterol Urine pH Urine WBC (Auto) Urine Creatinine Urine Total Protein Fluid Total Protein Vancomycin Trough Rheumatoid Factor Complement C4 Miscellaneous Test Crossmatch 10/27/16 10/27/16 10/27/16 13:27 18:07 23:40 WBC RBC Hgb Hct MCV MCH MCHC RDW Plt Count Lymph % (Auto) Simpson % (Auto) Lymph # Simpson # Baso # Seg Neutrophils % Seg Neuts % (Manual) Lymphocytes % (Manual) Monocytes % (Manual) Eosinophils % (Manual) Basophils % (Manual) Nucleated RBC % Seg Neutrophils # Seg Neutrophils # Man Lymphocytes # (Manual) Monocytes # (Manual) Eosinophils # (Manual) Basophils # (Manual) PT INR Fibrinogen dRVVT Confirm Interp Factor V Activity POC ABG pH POC ABG pCO2 POC ABG pO2 ABG pO2 ABG HCO3 ABG Base Excess ABG Hemoglobin Oxyhemoglobin Sodium Potassium Chloride Carbon Dioxide BUN Creatinine Glucose POC Glucose 117 H 121 H 118 H Lactic Acid Calcium Phosphorus Magnesium Direct Bilirubin AST ALT Alkaline Phosphatase Lactate Dehydrogenase Troponin T C-Reactive Protein Total Protein Albumin Prealbumin Triglycerides Cholesterol LDL Cholesterol Direct HDL Cholesterol Urine pH Urine WBC (Auto) Urine Creatinine Urine Total Protein Fluid Total Protein Vancomycin Trough Rheumatoid Factor Complement C4 Miscellaneous Test Crossmatch 10/28/16 10/28/16 10/28/16 05:48 06:45 06:45 WBC 14.7 H RBC 3.05 L Hgb 9.0 L Hct 26.9 L MCV MCH MCHC RDW 16.8 H Plt Count Lymph % (Auto) 8.2 L Simpson % (Auto) 8.4 H Lymph # Simpson # 1.2 H Baso # Seg Neutrophils % 81.9 H Seg Neuts % (Manual) Lymphocytes % (Manual) Monocytes % (Manual) Eosinophils % (Manual) Basophils % (Manual) Nucleated RBC % Seg Neutrophils # 12.1 H Seg Neutrophils # Man Lymphocytes # (Manual) Monocytes # (Manual) Eosinophils # (Manual) Basophils # (Manual) PT INR Fibrinogen dRVVT Confirm Interp Factor V Activity POC ABG pH POC ABG pCO2 POC ABG pO2 ABG pO2 ABG HCO3 ABG Base Excess ABG Hemoglobin Oxyhemoglobin Sodium Potassium Chloride Carbon Dioxide BUN 60 H Creatinine 1.9 H Glucose 120 H POC Glucose 114 H Lactic Acid Calcium Phosphorus Magnesium Direct Bilirubin AST ALT Alkaline Phosphatase Lactate Dehydrogenase Troponin T C-Reactive Protein Total Protein Albumin Prealbumin Triglycerides Cholesterol LDL Cholesterol Direct HDL Cholesterol Urine pH Urine WBC (Auto) Urine Creatinine Urine Total Protein Fluid Total Protein Vancomycin Trough Rheumatoid Factor Complement C4 Miscellaneous Test Crossmatch 10/28/16 10/28/16 10/29/16 17:08 23:50 05:10 WBC RBC Hgb Hct MCV MCH MCHC RDW Plt Count Lymph % (Auto) Simpson % (Auto) Lymph # Simpson # Baso # Seg Neutrophils % Seg Neuts % (Manual) Lymphocytes % (Manual) Monocytes % (Manual) Eosinophils % (Manual) Basophils % (Manual) Nucleated RBC % Seg Neutrophils # Seg Neutrophils # Man Lymphocytes # (Manual) Monocytes # (Manual) Eosinophils # (Manual) Basophils # (Manual) PT INR Fibrinogen dRVVT Confirm Interp Factor V Activity POC ABG pH POC ABG pCO2 POC ABG pO2 ABG pO2 ABG HCO3 ABG Base Excess ABG Hemoglobin Oxyhemoglobin Sodium Potassium Chloride Carbon Dioxide BUN Creatinine Glucose POC Glucose 109 H 110 H 124 H Lactic Acid Calcium Phosphorus Magnesium Direct Bilirubin AST ALT Alkaline Phosphatase Lactate Dehydrogenase Troponin T C-Reactive Protein Total Protein Albumin Prealbumin Triglycerides Cholesterol LDL Cholesterol Direct HDL Cholesterol Urine pH Urine WBC (Auto) Urine Creatinine Urine Total Protein Fluid Total Protein Vancomycin Trough Rheumatoid Factor Complement C4 Miscellaneous Test Crossmatch 10/29/16 10/29/16 10/29/16 07:45 07:45 12:19 WBC 14.7 H RBC 3.15 L Hgb 9.3 L Hct 28.9 L MCV MCH MCHC RDW 17.0 H Plt Count Lymph % (Auto) 11.9 L Simpson % (Auto) 8.6 H Lymph # Simpson # 1.3 H Baso # Seg Neutrophils % 78.1 H Seg Neuts % (Manual) Lymphocytes % (Manual) Monocytes % (Manual) Eosinophils % (Manual) Basophils % (Manual) Nucleated RBC % Seg Neutrophils # 11.4 H Seg Neutrophils # Man Lymphocytes # (Manual) Monocytes # (Manual) Eosinophils # (Manual) Basophils # (Manual) PT INR Fibrinogen dRVVT Confirm Interp Factor V Activity POC ABG pH POC ABG pCO2 POC ABG pO2 ABG pO2 ABG HCO3 ABG Base Excess ABG Hemoglobin Oxyhemoglobin Sodium Potassium 5.1 H Chloride Carbon Dioxide 19 L BUN 78 H Creatinine 2.2 H Glucose 116 H POC Glucose 118 H Lactic Acid Calcium Phosphorus Magnesium Direct Bilirubin AST ALT Alkaline Phosphatase Lactate Dehydrogenase Troponin T C-Reactive Protein Total Protein Albumin Prealbumin Triglycerides Cholesterol LDL Cholesterol Direct HDL Cholesterol Urine pH Urine WBC (Auto) Urine Creatinine Urine Total Protein Fluid Total Protein Vancomycin Trough Rheumatoid Factor Complement C4 Miscellaneous Test Crossmatch 10/29/16 10/30/16 10/30/16 17:49 01:52 03:28 WBC RBC Hgb Hct MCV MCH MCHC RDW Plt Count Lymph % (Auto) Simpson % (Auto) Lymph # Simpson # Baso # Seg Neutrophils % Seg Neuts % (Manual) Lymphocytes % (Manual) Monocytes % (Manual) Eosinophils % (Manual) Basophils % (Manual) Nucleated RBC % Seg Neutrophils # Seg Neutrophils # Man Lymphocytes # (Manual) Monocytes # (Manual) Eosinophils # (Manual) Basophils # (Manual) PT INR Fibrinogen dRVVT Confirm Interp Factor V Activity POC ABG pH POC ABG pCO2 POC ABG pO2 ABG pO2 ABG HCO3 ABG Base Excess ABG Hemoglobin Oxyhemoglobin Sodium Potassium 5.4 H Chloride 97.5 L Carbon Dioxide 19 L BUN 90 H Creatinine 2.5 H Glucose POC Glucose 120 H 129 H Lactic Acid Calcium Phosphorus 5.20 H Magnesium Direct Bilirubin AST ALT Alkaline Phosphatase Lactate Dehydrogenase Troponin T C-Reactive Protein Total Protein Albumin Prealbumin Triglycerides Cholesterol LDL Cholesterol Direct HDL Cholesterol Urine pH Urine WBC (Auto) Urine Creatinine Urine Total Protein Fluid Total Protein Vancomycin Trough Rheumatoid Factor Complement C4 Miscellaneous Test Crossmatch 10/30/16 10/30/16 10/30/16 03:28 08:19 08:19 WBC 11.6 H 15.9 H RBC 2.75 L 2.82 L Hgb 7.9 L 8.3 L Hct 24.2 L 25.2 L MCV MCH MCHC RDW 16.7 H 17.2 H Plt Count Lymph % (Auto) Simpson % (Auto) 9.8 H Lymph # Simpson # 1.1 H Baso # Seg Neutrophils % 74.2 H Seg Neuts % (Manual) Lymphocytes % (Manual) Monocytes % (Manual) Eosinophils % (Manual) Basophils % (Manual) Nucleated RBC % Seg Neutrophils # 8.6 H Seg Neutrophils # Man Lymphocytes # (Manual) Monocytes # (Manual) Eosinophils # (Manual) Basophils # (Manual) PT INR Fibrinogen dRVVT Confirm Interp Factor V Activity POC ABG pH POC ABG pCO2 POC ABG pO2 ABG pO2 ABG HCO3 ABG Base Excess ABG Hemoglobin Oxyhemoglobin Sodium Potassium 5.3 H Chloride 97.4 L Carbon Dioxide 19 L BUN 93 H Creatinine 2.6 H Glucose POC Glucose Lactic Acid Calcium Phosphorus Magnesium Direct Bilirubin AST ALT Alkaline Phosphatase Lactate Dehydrogenase Troponin T C-Reactive Protein Total Protein Albumin Prealbumin Triglycerides Cholesterol LDL Cholesterol Direct HDL Cholesterol Urine pH Urine WBC (Auto) Urine Creatinine Urine Total Protein Fluid Total Protein Vancomycin Trough Rheumatoid Factor Complement C4 Miscellaneous Test Crossmatch 10/30/16 10/30/16 10/31/16 17:11 23:56 00:40 WBC RBC Hgb Hct MCV MCH MCHC RDW Plt Count Lymph % (Auto) Simpson % (Auto) Lymph # Simpson # Baso # Seg Neutrophils % Seg Neuts % (Manual) Lymphocytes % (Manual) Monocytes % (Manual) Eosinophils % (Manual) Basophils % (Manual) Nucleated RBC % Seg Neutrophils # Seg Neutrophils # Man Lymphocytes # (Manual) Monocytes # (Manual) Eosinophils # (Manual) Basophils # (Manual) PT INR Fibrinogen dRVVT Confirm Interp Factor V Activity POC ABG pH POC ABG pCO2 POC ABG pO2 ABG pO2 ABG HCO3 ABG Base Excess ABG Hemoglobin Oxyhemoglobin Sodium Potassium Chloride Carbon Dioxide BUN Creatinine Glucose POC Glucose 106 H 117 H 120 H Lactic Acid Calcium Phosphorus Magnesium Direct Bilirubin AST ALT Alkaline Phosphatase Lactate Dehydrogenase Troponin T C-Reactive Protein Total Protein Albumin Prealbumin Triglycerides Cholesterol LDL Cholesterol Direct HDL Cholesterol Urine pH Urine WBC (Auto) Urine Creatinine Urine Total Protein Fluid Total Protein Vancomycin Trough Rheumatoid Factor Complement C4 Miscellaneous Test Crossmatch 10/31/16 10/31/16 10/31/16 05:43 07:15 07:15 WBC 12.1 H RBC 2.63 L Hgb 7.7 L Hct 23.3 L MCV MCH MCHC RDW 16.7 H Plt Count Lymph % (Auto) 11.7 L Simpson % (Auto) 7.7 H Lymph # Simpson # 0.9 H Baso # Seg Neutrophils % 78.0 H Seg Neuts % (Manual) Lymphocytes % (Manual) Monocytes % (Manual) Eosinophils % (Manual) Basophils % (Manual) Nucleated RBC % Seg Neutrophils # 9.4 H Seg Neutrophils # Man Lymphocytes # (Manual) Monocytes # (Manual) Eosinophils # (Manual) Basophils # (Manual) PT INR Fibrinogen dRVVT Confirm Interp Factor V Activity POC ABG pH POC ABG pCO2 POC ABG pO2 ABG pO2 ABG HCO3 ABG Base Excess ABG Hemoglobin Oxyhemoglobin Sodium Potassium Chloride 96.4 L Carbon Dioxide 21 L BUN 99 H Creatinine 2.6 H Glucose 144 H POC Glucose 125 H Lactic Acid Calcium Phosphorus 4.80 H Magnesium Direct Bilirubin AST ALT Alkaline Phosphatase Lactate Dehydrogenase Troponin T C-Reactive Protein Total Protein Albumin Prealbumin Triglycerides Cholesterol LDL Cholesterol Direct HDL Cholesterol Urine pH Urine WBC (Auto) Urine Creatinine Urine Total Protein Fluid Total Protein Vancomycin Trough Rheumatoid Factor Complement C4 Miscellaneous Test Crossmatch 10/31/16 10/31/16 11/01/16 11:46 18:34 00:20 WBC RBC Hgb Hct MCV MCH MCHC RDW Plt Count Lymph % (Auto) Simpson % (Auto) Lymph # Simpson # Baso # Seg Neutrophils % Seg Neuts % (Manual) Lymphocytes % (Manual) Monocytes % (Manual) Eosinophils % (Manual) Basophils % (Manual) Nucleated RBC % Seg Neutrophils # Seg Neutrophils # Man Lymphocytes # (Manual) Monocytes # (Manual) Eosinophils # (Manual) Basophils # (Manual) PT INR Fibrinogen dRVVT Confirm Interp Factor V Activity POC ABG pH POC ABG pCO2 POC ABG pO2 ABG pO2 ABG HCO3 ABG Base Excess ABG Hemoglobin Oxyhemoglobin Sodium Potassium Chloride Carbon Dioxide BUN Creatinine Glucose POC Glucose 159 H 140 H 132 H Lactic Acid Calcium Phosphorus Magnesium Direct Bilirubin AST ALT Alkaline Phosphatase Lactate Dehydrogenase Troponin T C-Reactive Protein Total Protein Albumin Prealbumin Triglycerides Cholesterol LDL Cholesterol Direct HDL Cholesterol Urine pH Urine WBC (Auto) Urine Creatinine Urine Total Protein Fluid Total Protein Vancomycin Trough Rheumatoid Factor Complement C4 Miscellaneous Test Crossmatch 11/01/16 11/01/16 11/01/16 04:55 04:55 06:11 WBC 11.2 H RBC 2.68 L Hgb 7.5 L Hct 23.7 L MCV MCH MCHC RDW 16.1 H Plt Count Lymph % (Auto) Simpson % (Auto) 9.8 H Lymph # Simpson # 1.1 H Baso # Seg Neutrophils % 70.8 H Seg Neuts % (Manual) Lymphocytes % (Manual) Monocytes % (Manual) Eosinophils % (Manual) Basophils % (Manual) Nucleated RBC % Seg Neutrophils # 7.9 H Seg Neutrophils # Man Lymphocytes # (Manual) Monocytes # (Manual) Eosinophils # (Manual) Basophils # (Manual) PT INR Fibrinogen dRVVT Confirm Interp Factor V Activity POC ABG pH POC ABG pCO2 POC ABG pO2 ABG pO2 ABG HCO3 ABG Base Excess ABG Hemoglobin Oxyhemoglobin Sodium Potassium 3.3 L D Chloride Carbon Dioxide BUN 61 H Creatinine 1.9 H Glucose 114 H POC Glucose 115 H Lactic Acid Calcium Phosphorus 1.80 L D Magnesium Direct Bilirubin AST ALT Alkaline Phosphatase Lactate Dehydrogenase Troponin T C-Reactive Protein Total Protein Albumin Prealbumin Triglycerides Cholesterol LDL Cholesterol Direct HDL Cholesterol Urine pH Urine WBC (Auto) Urine Creatinine Urine Total Protein Fluid Total Protein Vancomycin Trough Rheumatoid Factor Complement C4 Miscellaneous Test Crossmatch 11/01/16 11/01/16 11/01/16 12:29 18:23 23:58 WBC RBC Hgb Hct MCV MCH MCHC RDW Plt Count Lymph % (Auto) Simpson % (Auto) Lymph # Simpson # Baso # Seg Neutrophils % Seg Neuts % (Manual) Lymphocytes % (Manual) Monocytes % (Manual) Eosinophils % (Manual) Basophils % (Manual) Nucleated RBC % Seg Neutrophils # Seg Neutrophils # Man Lymphocytes # (Manual) Monocytes # (Manual) Eosinophils # (Manual) Basophils # (Manual) PT INR Fibrinogen dRVVT Confirm Interp Factor V Activity POC ABG pH POC ABG pCO2 POC ABG pO2 ABG pO2 ABG HCO3 ABG Base Excess ABG Hemoglobin Oxyhemoglobin Sodium Potassium Chloride Carbon Dioxide BUN Creatinine Glucose POC Glucose 142 H 143 H 128 H Lactic Acid Calcium Phosphorus Magnesium Direct Bilirubin AST ALT Alkaline Phosphatase Lactate Dehydrogenase Troponin T C-Reactive Protein Total Protein Albumin Prealbumin Triglycerides Cholesterol LDL Cholesterol Direct HDL Cholesterol Urine pH Urine WBC (Auto) Urine Creatinine Urine Total Protein Fluid Total Protein Vancomycin Trough Rheumatoid Factor Complement C4 Miscellaneous Test Crossmatch 11/02/16 11/02/16 11/02/16 04:16 05:29 11:58 WBC RBC Hgb Hct MCV MCH MCHC RDW Plt Count Lymph % (Auto) Simpson % (Auto) Lymph # Simpson # Baso # Seg Neutrophils % Seg Neuts % (Manual) Lymphocytes % (Manual) Monocytes % (Manual) Eosinophils % (Manual) Basophils % (Manual) Nucleated RBC % Seg Neutrophils # Seg Neutrophils # Man Lymphocytes # (Manual) Monocytes # (Manual) Eosinophils # (Manual) Basophils # (Manual) PT INR Fibrinogen dRVVT Confirm Interp Factor V Activity POC ABG pH POC ABG pCO2 POC ABG pO2 ABG pO2 ABG HCO3 ABG Base Excess ABG Hemoglobin Oxyhemoglobin Sodium Potassium 3.1 L Chloride Carbon Dioxide BUN 73 H Creatinine 2.3 H Glucose 112 H POC Glucose 135 H 149 H Lactic Acid Calcium Phosphorus Magnesium Direct Bilirubin AST ALT Alkaline Phosphatase Lactate Dehydrogenase Troponin T C-Reactive Protein Total Protein Albumin Prealbumin Triglycerides Cholesterol LDL Cholesterol Direct HDL Cholesterol Urine pH Urine WBC (Auto) Urine Creatinine Urine Total Protein Fluid Total Protein Vancomycin Trough Rheumatoid Factor Complement C4 Miscellaneous Test Crossmatch 11/02/16 11/02/16 11/03/16 17:42 22:54 06:00 WBC RBC Hgb Hct MCV MCH MCHC RDW Plt Count Lymph % (Auto) Simpson % (Auto) Lymph # Simpson # Baso # Seg Neutrophils % Seg Neuts % (Manual) Lymphocytes % (Manual) Monocytes % (Manual) Eosinophils % (Manual) Basophils % (Manual) Nucleated RBC % Seg Neutrophils # Seg Neutrophils # Man Lymphocytes # (Manual) Monocytes # (Manual) Eosinophils # (Manual) Basophils # (Manual) PT INR Fibrinogen dRVVT Confirm Interp Factor V Activity POC ABG pH POC ABG pCO2 POC ABG pO2 ABG pO2 ABG HCO3 ABG Base Excess ABG Hemoglobin Oxyhemoglobin Sodium Potassium Chloride 96.7 L Carbon Dioxide BUN 41 H Creatinine 1.5 H Glucose 145 H POC Glucose 182 H 115 H Lactic Acid Calcium Phosphorus 1.60 L D Magnesium 1.50 L Direct Bilirubin AST ALT Alkaline Phosphatase Lactate Dehydrogenase Troponin T C-Reactive Protein Total Protein Albumin Prealbumin Triglycerides Cholesterol LDL Cholesterol Direct HDL Cholesterol Urine pH Urine WBC (Auto) Urine Creatinine Urine Total Protein Fluid Total Protein Vancomycin Trough Rheumatoid Factor Complement C4 Miscellaneous Test Crossmatch 11/03/16 11/03/16 11/03/16 11:53 17:45 23:37 WBC RBC Hgb Hct MCV MCH MCHC RDW Plt Count Lymph % (Auto) Simpson % (Auto) Lymph # Simpson # Baso # Seg Neutrophils % Seg Neuts % (Manual) Lymphocytes % (Manual) Monocytes % (Manual) Eosinophils % (Manual) Basophils % (Manual) Nucleated RBC % Seg Neutrophils # Seg Neutrophils # Man Lymphocytes # (Manual) Monocytes # (Manual) Eosinophils # (Manual) Basophils # (Manual) PT INR Fibrinogen dRVVT Confirm Interp Factor V Activity POC ABG pH POC ABG pCO2 POC ABG pO2 ABG pO2 ABG HCO3 ABG Base Excess ABG Hemoglobin Oxyhemoglobin Sodium Potassium Chloride Carbon Dioxide BUN Creatinine Glucose POC Glucose 131 H 134 H 113 H Lactic Acid Calcium Phosphorus Magnesium Direct Bilirubin AST ALT Alkaline Phosphatase Lactate Dehydrogenase Troponin T C-Reactive Protein Total Protein Albumin Prealbumin Triglycerides Cholesterol LDL Cholesterol Direct HDL Cholesterol Urine pH Urine WBC (Auto) Urine Creatinine Urine Total Protein Fluid Total Protein Vancomycin Trough Rheumatoid Factor Complement C4 Miscellaneous Test Crossmatch 11/04/16 11/04/16 11/04/16 05:41 06:00 12:10 WBC RBC Hgb Hct MCV MCH MCHC RDW Plt Count Lymph % (Auto) Simpson % (Auto) Lymph # Simpson # Baso # Seg Neutrophils % Seg Neuts % (Manual) Lymphocytes % (Manual) Monocytes % (Manual) Eosinophils % (Manual) Basophils % (Manual) Nucleated RBC % Seg Neutrophils # Seg Neutrophils # Man Lymphocytes # (Manual) Monocytes # (Manual) Eosinophils # (Manual) Basophils # (Manual) PT INR Fibrinogen dRVVT Confirm Interp Factor V Activity POC ABG pH POC ABG pCO2 POC ABG pO2 ABG pO2 ABG HCO3 ABG Base Excess ABG Hemoglobin Oxyhemoglobin Sodium Potassium Chloride 96.7 L Carbon Dioxide BUN 52 H Creatinine 1.9 H Glucose 126 H POC Glucose 137 H 191 H Lactic Acid Calcium Phosphorus Magnesium Direct Bilirubin AST ALT Alkaline Phosphatase Lactate Dehydrogenase Troponin T C-Reactive Protein Total Protein Albumin Prealbumin Triglycerides Cholesterol LDL Cholesterol Direct HDL Cholesterol Urine pH Urine WBC (Auto) Urine Creatinine Urine Total Protein Fluid Total Protein Vancomycin Trough Rheumatoid Factor Complement C4 Miscellaneous Test Crossmatch 11/04/16 11/05/16 11/05/16 22:57 03:10 05:10 WBC RBC Hgb Hct MCV MCH MCHC RDW Plt Count Lymph % (Auto) Simpson % (Auto) Lymph # Simpson # Baso # Seg Neutrophils % Seg Neuts % (Manual) Lymphocytes % (Manual) Monocytes % (Manual) Eosinophils % (Manual) Basophils % (Manual) Nucleated RBC % Seg Neutrophils # Seg Neutrophils # Man Lymphocytes # (Manual) Monocytes # (Manual) Eosinophils # (Manual) Basophils # (Manual) PT INR Fibrinogen dRVVT Confirm Interp Factor V Activity POC ABG pH POC ABG pCO2 POC ABG pO2 ABG pO2 ABG HCO3 ABG Base Excess ABG Hemoglobin Oxyhemoglobin Sodium 136 L Potassium Chloride 97.2 L Carbon Dioxide BUN 32 H Creatinine 1.3 H Glucose 123 H POC Glucose 125 H 108 H Lactic Acid Calcium 7.8 L Phosphorus Magnesium Direct Bilirubin AST ALT Alkaline Phosphatase Lactate Dehydrogenase Troponin T C-Reactive Protein Total Protein Albumin Prealbumin Triglycerides Cholesterol LDL Cholesterol Direct HDL Cholesterol Urine pH Urine WBC (Auto) Urine Creatinine Urine Total Protein Fluid Total Protein Vancomycin Trough Rheumatoid Factor Complement C4 Miscellaneous Test Crossmatch 11/05/16 11/05/16 11/05/16 12:23 13:09 13:25 WBC RBC Hgb Hct MCV MCH MCHC RDW Plt Count Lymph % (Auto) Simpson % (Auto) Lymph # Simpson # Baso # Seg Neutrophils % Seg Neuts % (Manual) Lymphocytes % (Manual) Monocytes % (Manual) Eosinophils % (Manual) Basophils % (Manual) Nucleated RBC % Seg Neutrophils # Seg Neutrophils # Man Lymphocytes # (Manual) Monocytes # (Manual) Eosinophils # (Manual) Basophils # (Manual) PT INR Fibrinogen dRVVT Confirm Interp Factor V Activity POC ABG pH POC ABG pCO2 POC ABG pO2 ABG pO2 ABG HCO3 ABG Base Excess ABG Hemoglobin Oxyhemoglobin Sodium Potassium Chloride Carbon Dioxide BUN Creatinine Glucose POC Glucose 124 H Lactic Acid Calcium Phosphorus Magnesium Direct Bilirubin AST ALT Alkaline Phosphatase Lactate Dehydrogenase Troponin T C-Reactive Protein 11.40 H Total Protein Albumin Prealbumin Triglycerides Cholesterol LDL Cholesterol Direct HDL Cholesterol Urine pH 9.0 H Urine WBC (Auto) Urine Creatinine Urine Total Protein Fluid Total Protein Vancomycin Trough Rheumatoid Factor Complement C4 Miscellaneous Test Crossmatch 11/05/16 11/05/16 11/05/16 13:25 17:54 23:42 WBC RBC Hgb Hct MCV MCH MCHC RDW Plt Count Lymph % (Auto) Simpson % (Auto) Lymph # Simpson # Baso # Seg Neutrophils % Seg Neuts % (Manual) Lymphocytes % (Manual) Monocytes % (Manual) Eosinophils % (Manual) Basophils % (Manual) Nucleated RBC % Seg Neutrophils # Seg Neutrophils # Man Lymphocytes # (Manual) Monocytes # (Manual) Eosinophils # (Manual) Basophils # (Manual) PT INR Fibrinogen dRVVT Confirm Interp Factor V Activity POC ABG pH POC ABG pCO2 POC ABG pO2 ABG pO2 ABG HCO3 ABG Base Excess ABG Hemoglobin Oxyhemoglobin Sodium Potassium Chloride Carbon Dioxide BUN Creatinine Glucose POC Glucose 114 H 134 H Lactic Acid Calcium Phosphorus Magnesium Direct Bilirubin AST ALT Alkaline Phosphatase Lactate Dehydrogenase Troponin T C-Reactive Protein Total Protein Albumin Prealbumin Triglycerides Cholesterol LDL Cholesterol Direct HDL Cholesterol Urine pH Urine WBC (Auto) Urine Creatinine Urine Total Protein Fluid Total Protein Vancomycin Trough Rheumatoid Factor Complement C4 Miscellaneous Test Flexitest 1 H Crossmatch 11/06/16 11/06/16 11/06/16 04:56 06:25 06:25 WBC RBC 2.50 L Hgb 7.3 L Hct 22.5 L MCV MCH MCHC RDW 16.9 H Plt Count Lymph % (Auto) Simpson % (Auto) 10.5 H Lymph # Simpson # 1.1 H Baso # Seg Neutrophils % Seg Neuts % (Manual) Lymphocytes % (Manual) Monocytes % (Manual) Eosinophils % (Manual) Basophils % (Manual) Nucleated RBC % Seg Neutrophils # Seg Neutrophils # Man Lymphocytes # (Manual) Monocytes # (Manual) Eosinophils # (Manual) Basophils # (Manual) PT INR Fibrinogen dRVVT Confirm Interp Factor V Activity POC ABG pH POC ABG pCO2 POC ABG pO2 ABG pO2 ABG HCO3 ABG Base Excess ABG Hemoglobin Oxyhemoglobin Sodium Potassium 5.1 H Chloride 95.9 L Carbon Dioxide BUN 52 H Creatinine 1.8 H Glucose 117 H POC Glucose 120 H Lactic Acid Calcium Phosphorus Magnesium Direct Bilirubin AST 103 H ALT 77 H Alkaline Phosphatase 285 H Lactate Dehydrogenase Troponin T C-Reactive Protein Total Protein 6.2 L Albumin 1.8 L Prealbumin 0.180 L Triglycerides Cholesterol LDL Cholesterol Direct HDL Cholesterol Urine pH Urine WBC (Auto) Urine Creatinine Urine Total Protein Fluid Total Protein Vancomycin Trough Rheumatoid Factor Complement C4 Miscellaneous Test Crossmatch 11/06/16 11/06/16 11/06/16 11:56 17:14 23:52 WBC RBC Hgb Hct MCV MCH MCHC RDW Plt Count Lymph % (Auto) Simpson % (Auto) Lymph # Simpson # Baso # Seg Neutrophils % Seg Neuts % (Manual) Lymphocytes % (Manual) Monocytes % (Manual) Eosinophils % (Manual) Basophils % (Manual) Nucleated RBC % Seg Neutrophils # Seg Neutrophils # Man Lymphocytes # (Manual) Monocytes # (Manual) Eosinophils # (Manual) Basophils # (Manual) PT INR Fibrinogen dRVVT Confirm Interp Factor V Activity POC ABG pH POC ABG pCO2 POC ABG pO2 ABG pO2 ABG HCO3 ABG Base Excess ABG Hemoglobin Oxyhemoglobin Sodium Potassium Chloride Carbon Dioxide BUN Creatinine Glucose POC Glucose 141 H 125 H 130 H Lactic Acid Calcium Phosphorus Magnesium Direct Bilirubin AST ALT Alkaline Phosphatase Lactate Dehydrogenase Troponin T C-Reactive Protein Total Protein Albumin Prealbumin Triglycerides Cholesterol LDL Cholesterol Direct HDL Cholesterol Urine pH Urine WBC (Auto) Urine Creatinine Urine Total Protein Fluid Total Protein Vancomycin Trough Rheumatoid Factor Complement C4 Miscellaneous Test Crossmatch 11/07/16 11/07/16 11/07/16 06:30 06:30 09:37 WBC RBC 2.18 L Hgb 6.3 L Hct 19.7 L* MCV MCH MCHC RDW 16.8 H Plt Count Lymph % (Auto) Simpson % (Auto) 10.0 H Lymph # Simpson # 1.0 H Baso # Seg Neutrophils % Seg Neuts % (Manual) Lymphocytes % (Manual) Monocytes % (Manual) Eosinophils % (Manual) Basophils % (Manual) Nucleated RBC % Seg Neutrophils # Seg Neutrophils # Man Lymphocytes # (Manual) Monocytes # (Manual) Eosinophils # (Manual) Basophils # (Manual) PT INR Fibrinogen dRVVT Confirm Interp Factor V Activity POC ABG pH POC ABG pCO2 POC ABG pO2 ABG pO2 ABG HCO3 ABG Base Excess ABG Hemoglobin Oxyhemoglobin Sodium 135 L Potassium Chloride 95.6 L Carbon Dioxide BUN 70 H Creatinine 2.0 H Glucose 126 H POC Glucose Lactic Acid Calcium Phosphorus Magnesium Direct Bilirubin AST ALT Alkaline Phosphatase Lactate Dehydrogenase Troponin T C-Reactive Protein Total Protein Albumin Prealbumin Triglycerides Cholesterol LDL Cholesterol Direct HDL Cholesterol Urine pH Urine WBC (Auto) Urine Creatinine Urine Total Protein Fluid Total Protein Vancomycin Trough Rheumatoid Factor Complement C4 Miscellaneous Test Crossmatch See Detail 11/07/16 11/07/16 11/07/16 12:52 18:51 21:26 WBC RBC Hgb Hct MCV MCH MCHC RDW Plt Count Lymph % (Auto) Simpson % (Auto) Lymph # Simpson # Baso # Seg Neutrophils % Seg Neuts % (Manual) Lymphocytes % (Manual) Monocytes % (Manual) Eosinophils % (Manual) Basophils % (Manual) Nucleated RBC % Seg Neutrophils # Seg Neutrophils # Man Lymphocytes # (Manual) Monocytes # (Manual) Eosinophils # (Manual) Basophils # (Manual) PT INR Fibrinogen dRVVT Confirm Interp Factor V Activity POC ABG pH 7.523 H POC ABG pCO2 34.6 L POC ABG pO2 53 L ABG pO2 ABG HCO3 ABG Base Excess ABG Hemoglobin Oxyhemoglobin Sodium Potassium Chloride Carbon Dioxide BUN Creatinine Glucose POC Glucose 142 H 155 H Lactic Acid Calcium Phosphorus Magnesium Direct Bilirubin AST ALT Alkaline Phosphatase Lactate Dehydrogenase Troponin T C-Reactive Protein Total Protein Albumin Prealbumin Triglycerides Cholesterol LDL Cholesterol Direct HDL Cholesterol Urine pH Urine WBC (Auto) Urine Creatinine Urine Total Protein Fluid Total Protein Vancomycin Trough Rheumatoid Factor Complement C4 Miscellaneous Test Crossmatch 11/07/16 11/08/16 11/08/16 21:34 13:03 23:37 WBC RBC 2.63 L Hgb 7.7 L Hct 22.7 L MCV MCH MCHC RDW 17.0 H Plt Count Lymph % (Auto) Simpson % (Auto) Lymph # Simpson # Baso # Seg Neutrophils % Seg Neuts % (Manual) Lymphocytes % (Manual) Monocytes % (Manual) Eosinophils % (Manual) Basophils % (Manual) Nucleated RBC % Seg Neutrophils # Seg Neutrophils # Man Lymphocytes # (Manual) Monocytes # (Manual) Eosinophils # (Manual) Basophils # (Manual) PT INR Fibrinogen dRVVT Confirm Interp Factor V Activity POC ABG pH 7.478 H POC ABG pCO2 34.0 L POC ABG pO2 50 L ABG pO2 ABG HCO3 ABG Base Excess ABG Hemoglobin Oxyhemoglobin Sodium Potassium Chloride Carbon Dioxide BUN Creatinine Glucose POC Glucose 113 H Lactic Acid Calcium Phosphorus Magnesium Direct Bilirubin AST ALT Alkaline Phosphatase Lactate Dehydrogenase Troponin T C-Reactive Protein Total Protein Albumin Prealbumin Triglycerides Cholesterol LDL Cholesterol Direct HDL Cholesterol Urine pH Urine WBC (Auto) Urine Creatinine Urine Total Protein Fluid Total Protein Vancomycin Trough Rheumatoid Factor Complement C4 Miscellaneous Test Crossmatch 11/09/16 11/09/16 11/09/16 04:35 10:15 18:21 WBC RBC 2.68 L Hgb 7.8 L Hct 23.3 L MCV MCH MCHC RDW 17.0 H Plt Count Lymph % (Auto) Simpson % (Auto) 12.1 H Lymph # Simpson # 1.1 H Baso # Seg Neutrophils % Seg Neuts % (Manual) Lymphocytes % (Manual) Monocytes % (Manual) Eosinophils % (Manual) Basophils % (Manual) Nucleated RBC % Seg Neutrophils # Seg Neutrophils # Man Lymphocytes # (Manual) Monocytes # (Manual) Eosinophils # (Manual) Basophils # (Manual) PT INR Fibrinogen dRVVT Confirm Interp Factor V Activity POC ABG pH POC ABG pCO2 POC ABG pO2 ABG pO2 ABG HCO3 ABG Base Excess ABG Hemoglobin Oxyhemoglobin Sodium Potassium Chloride Carbon Dioxide BUN 51 H Creatinine 1.8 H Glucose POC Glucose 60 L Lactic Acid Calcium 8.3 L Phosphorus Magnesium Direct Bilirubin AST ALT Alkaline Phosphatase Lactate Dehydrogenase Troponin T C-Reactive Protein Total Protein Albumin Prealbumin Triglycerides Cholesterol LDL Cholesterol Direct HDL Cholesterol Urine pH Urine WBC (Auto) Urine Creatinine Urine Total Protein Fluid Total Protein Vancomycin Trough Rheumatoid Factor Complement C4 Miscellaneous Test Crossmatch 11/09/16 11/10/16 11/10/16 18:55 07:00 11:51 WBC RBC Hgb Hct MCV MCH MCHC RDW Plt Count Lymph % (Auto) Simpson % (Auto) Lymph # Simpson # Baso # Seg Neutrophils % Seg Neuts % (Manual) Lymphocytes % (Manual) Monocytes % (Manual) Eosinophils % (Manual) Basophils % (Manual) Nucleated RBC % Seg Neutrophils # Seg Neutrophils # Man Lymphocytes # (Manual) Monocytes # (Manual) Eosinophils # (Manual) Basophils # (Manual) PT INR Fibrinogen dRVVT Confirm Interp Factor V Activity POC ABG pH POC ABG pCO2 POC ABG pO2 ABG pO2 ABG HCO3 ABG Base Excess ABG Hemoglobin Oxyhemoglobin Sodium Potassium 3.0 L D Chloride 97.4 L Carbon Dioxide BUN 28 H Creatinine 1.3 H Glucose POC Glucose 68 L 120 H Lactic Acid Calcium 7.8 L Phosphorus Magnesium Direct Bilirubin AST ALT Alkaline Phosphatase Lactate Dehydrogenase Troponin T C-Reactive Protein Total Protein Albumin Prealbumin Triglycerides Cholesterol LDL Cholesterol Direct HDL Cholesterol Urine pH Urine WBC (Auto) Urine Creatinine Urine Total Protein Fluid Total Protein Vancomycin Trough Rheumatoid Factor Complement C4 Miscellaneous Test Crossmatch 11/10/16 11/11/16 11/11/16 14:20 06:59 06:59 WBC RBC 2.81 L Hgb 8.1 L Hct 24.4 L MCV MCH MCHC RDW 16.4 H Plt Count Lymph % (Auto) Simpson % (Auto) 10.8 H Lymph # Simpson # 1.0 H Baso # Seg Neutrophils % Seg Neuts % (Manual) Lymphocytes % (Manual) Monocytes % (Manual) Eosinophils % (Manual) Basophils % (Manual) Nucleated RBC % Seg Neutrophils # Seg Neutrophils # Man Lymphocytes # (Manual) Monocytes # (Manual) Eosinophils # (Manual) Basophils # (Manual) PT INR Fibrinogen dRVVT Confirm Interp Factor V Activity POC ABG pH POC ABG pCO2 POC ABG pO2 ABG pO2 ABG HCO3 ABG Base Excess ABG Hemoglobin Oxyhemoglobin Sodium Potassium Chloride Carbon Dioxide BUN Creatinine Glucose POC Glucose Lactic Acid Calcium Phosphorus Magnesium Direct Bilirubin AST ALT Alkaline Phosphatase Lactate Dehydrogenase 196 H Troponin T C-Reactive Protein Total Protein 6.1 L Albumin Prealbumin Triglycerides Cholesterol LDL Cholesterol Direct HDL Cholesterol Urine pH Urine WBC (Auto) Urine Creatinine Urine Total Protein Fluid Total Protein < 3.0 L Vancomycin Trough Rheumatoid Factor Complement C4 Miscellaneous Test Crossmatch 11/11/16 11/11/16 11/12/16 06:59 09:50 04:00 WBC RBC Hgb Hct MCV MCH MCHC RDW Plt Count Lymph % (Auto) Simpson % (Auto) Lymph # Simpson # Baso # Seg Neutrophils % Seg Neuts % (Manual) Lymphocytes % (Manual) Monocytes % (Manual) Eosinophils % (Manual) Basophils % (Manual) Nucleated RBC % Seg Neutrophils # Seg Neutrophils # Man Lymphocytes # (Manual) Monocytes # (Manual) Eosinophils # (Manual) Basophils # (Manual) PT INR 1.18 H Fibrinogen dRVVT Confirm Interp Factor V Activity POC ABG pH POC ABG pCO2 POC ABG pO2 ABG pO2 ABG HCO3 ABG Base Excess ABG Hemoglobin Oxyhemoglobin Sodium 136 L 133 L Potassium Chloride 96.1 L 94.8 L Carbon Dioxide 21 L BUN 37 H 42 H Creatinine 1.8 H 2.0 H Glucose POC Glucose Lactic Acid Calcium Phosphorus Magnesium Direct Bilirubin AST ALT Alkaline Phosphatase Lactate Dehydrogenase Troponin T C-Reactive Protein Total Protein Albumin Prealbumin Triglycerides Cholesterol LDL Cholesterol Direct HDL Cholesterol Urine pH Urine WBC (Auto) Urine Creatinine Urine Total Protein Fluid Total Protein Vancomycin Trough Rheumatoid Factor Complement C4 Miscellaneous Test Crossmatch 11/12/16 11/12/16 11/13/16 04:00 23:55 05:53 WBC RBC Hgb 8.9 L Hct 27.2 L MCV MCH MCHC RDW Plt Count Lymph % (Auto) Simpson % (Auto) Lymph # Simpson # Baso # Seg Neutrophils % Seg Neuts % (Manual) Lymphocytes % (Manual) Monocytes % (Manual) Eosinophils % (Manual) Basophils % (Manual) Nucleated RBC % Seg Neutrophils # Seg Neutrophils # Man Lymphocytes # (Manual) Monocytes # (Manual) Eosinophils # (Manual) Basophils # (Manual) PT INR Fibrinogen dRVVT Confirm Interp Factor V Activity POC ABG pH POC ABG pCO2 POC ABG pO2 ABG pO2 ABG HCO3 ABG Base Excess ABG Hemoglobin Oxyhemoglobin Sodium Potassium Chloride Carbon Dioxide BUN Creatinine Glucose POC Glucose 132 H 120 H Lactic Acid Calcium Phosphorus Magnesium Direct Bilirubin AST ALT Alkaline Phosphatase Lactate Dehydrogenase Troponin T C-Reactive Protein Total Protein Albumin Prealbumin Triglycerides Cholesterol LDL Cholesterol Direct HDL Cholesterol Urine pH Urine WBC (Auto) Urine Creatinine Urine Total Protein Fluid Total Protein Vancomycin Trough Rheumatoid Factor Complement C4 Miscellaneous Test Crossmatch 11/13/16 11/13/16 11/13/16 11:43 17:09 23:41 WBC RBC Hgb Hct MCV MCH MCHC RDW Plt Count Lymph % (Auto) Simpson % (Auto) Lymph # Simpson # Baso # Seg Neutrophils % Seg Neuts % (Manual) Lymphocytes % (Manual) Monocytes % (Manual) Eosinophils % (Manual) Basophils % (Manual) Nucleated RBC % Seg Neutrophils # Seg Neutrophils # Man Lymphocytes # (Manual) Monocytes # (Manual) Eosinophils # (Manual) Basophils # (Manual) PT INR Fibrinogen dRVVT Confirm Interp Factor V Activity POC ABG pH POC ABG pCO2 POC ABG pO2 ABG pO2 ABG HCO3 ABG Base Excess ABG Hemoglobin Oxyhemoglobin Sodium Potassium Chloride Carbon Dioxide BUN Creatinine Glucose POC Glucose 114 H 113 H 108 H Lactic Acid Calcium Phosphorus Magnesium Direct Bilirubin AST ALT Alkaline Phosphatase Lactate Dehydrogenase Troponin T C-Reactive Protein Total Protein Albumin Prealbumin Triglycerides Cholesterol LDL Cholesterol Direct HDL Cholesterol Urine pH Urine WBC (Auto) Urine Creatinine Urine Total Protein Fluid Total Protein Vancomycin Trough Rheumatoid Factor Complement C4 Miscellaneous Test Crossmatch 11/13/16 11/15/16 11/15/16 Unknown 00:37 03:30 WBC 11.2 H RBC 2.72 L Hgb 7.6 L Hct 23.4 L MCV MCH MCHC RDW 16.5 H Plt Count Lymph % (Auto) Simpson % (Auto) Lymph # Simpson # Baso # Seg Neutrophils % Seg Neuts % (Manual) Lymphocytes % (Manual) Monocytes % (Manual) Eosinophils % (Manual) Basophils % (Manual) Nucleated RBC % Seg Neutrophils # Seg Neutrophils # Man Lymphocytes # (Manual) Monocytes # (Manual) Eosinophils # (Manual) Basophils # (Manual) PT INR Fibrinogen dRVVT Confirm Interp Factor V Activity POC ABG pH POC ABG pCO2 POC ABG pO2 ABG pO2 ABG HCO3 ABG Base Excess ABG Hemoglobin Oxyhemoglobin Sodium 135 L Potassium Chloride 95.2 L Carbon Dioxide BUN 52 H Creatinine 2.2 H Glucose POC Glucose 108 H Lactic Acid Calcium Phosphorus Magnesium Direct Bilirubin AST ALT Alkaline Phosphatase Lactate Dehydrogenase Troponin T C-Reactive Protein Total Protein Albumin Prealbumin Triglycerides Cholesterol LDL Cholesterol Direct HDL Cholesterol Urine pH Urine WBC (Auto) Urine Creatinine Urine Total Protein Fluid Total Protein Vancomycin Trough Rheumatoid Factor Complement C4 Miscellaneous Test Crossmatch 11/15/16 11/15/16 11/15/16 03:30 05:04 11:50 WBC RBC Hgb Hct MCV MCH MCHC RDW Plt Count Lymph % (Auto) Simpson % (Auto) Lymph # Simpson # Baso # Seg Neutrophils % Seg Neuts % (Manual) Lymphocytes % (Manual) Monocytes % (Manual) Eosinophils % (Manual) Basophils % (Manual) Nucleated RBC % Seg Neutrophils # Seg Neutrophils # Man Lymphocytes # (Manual) Monocytes # (Manual) Eosinophils # (Manual) Basophils # (Manual) PT INR Fibrinogen dRVVT Confirm Interp Factor V Activity POC ABG pH POC ABG pCO2 POC ABG pO2 ABG pO2 ABG HCO3 ABG Base Excess ABG Hemoglobin Oxyhemoglobin Sodium Potassium 3.4 L Chloride Carbon Dioxide BUN 25 H Creatinine 1.5 H Glucose 103 H POC Glucose 121 H 144 H Lactic Acid Calcium Phosphorus Magnesium Direct Bilirubin AST ALT Alkaline Phosphatase Lactate Dehydrogenase Troponin T C-Reactive Protein Total Protein Albumin Prealbumin Triglycerides Cholesterol LDL Cholesterol Direct HDL Cholesterol Urine pH Urine WBC (Auto) Urine Creatinine Urine Total Protein Fluid Total Protein Vancomycin Trough Rheumatoid Factor Complement C4 Miscellaneous Test Crossmatch 11/15/16 11/15/16 11/16/16 21:28 23:20 11:44 WBC RBC Hgb Hct MCV MCH MCHC RDW Plt Count Lymph % (Auto) Simpson % (Auto) Lymph # Simpson # Baso # Seg Neutrophils % Seg Neuts % (Manual) Lymphocytes % (Manual) Monocytes % (Manual) Eosinophils % (Manual) Basophils % (Manual) Nucleated RBC % Seg Neutrophils # Seg Neutrophils # Man Lymphocytes # (Manual) Monocytes # (Manual) Eosinophils # (Manual) Basophils # (Manual) PT INR Fibrinogen dRVVT Confirm Interp Factor V Activity POC ABG pH 7.462 H POC ABG pCO2 POC ABG pO2 71 L ABG pO2 ABG HCO3 ABG Base Excess ABG Hemoglobin Oxyhemoglobin Sodium Potassium Chloride Carbon Dioxide BUN Creatinine Glucose POC Glucose 116 H 133 H Lactic Acid Calcium Phosphorus Magnesium Direct Bilirubin AST ALT Alkaline Phosphatase Lactate Dehydrogenase Troponin T C-Reactive Protein Total Protein Albumin Prealbumin Triglycerides Cholesterol LDL Cholesterol Direct HDL Cholesterol Urine pH Urine WBC (Auto) Urine Creatinine Urine Total Protein Fluid Total Protein Vancomycin Trough Rheumatoid Factor Complement C4 Miscellaneous Test Crossmatch 11/16/16 11/16/16 11/16/16 12:20 17:05 23:35 WBC 11.7 H RBC 2.73 L Hgb 7.6 L Hct 23.7 L MCV MCH MCHC RDW 16.6 H Plt Count Lymph % (Auto) Simpson % (Auto) Lymph # Simpson # Baso # Seg Neutrophils % Seg Neuts % (Manual) Lymphocytes % (Manual) Monocytes % (Manual) Eosinophils % (Manual) Basophils % (Manual) Nucleated RBC % Seg Neutrophils # Seg Neutrophils # Man Lymphocytes # (Manual) Monocytes # (Manual) Eosinophils # (Manual) Basophils # (Manual) PT INR Fibrinogen dRVVT Confirm Interp Factor V Activity POC ABG pH POC ABG pCO2 POC ABG pO2 ABG pO2 ABG HCO3 ABG Base Excess ABG Hemoglobin Oxyhemoglobin Sodium Potassium Chloride Carbon Dioxide BUN Creatinine Glucose POC Glucose 154 H 125 H Lactic Acid Calcium Phosphorus Magnesium Direct Bilirubin AST ALT Alkaline Phosphatase Lactate Dehydrogenase Troponin T C-Reactive Protein Total Protein Albumin Prealbumin Triglycerides Cholesterol LDL Cholesterol Direct HDL Cholesterol Urine pH Urine WBC (Auto) Urine Creatinine Urine Total Protein Fluid Total Protein Vancomycin Trough Rheumatoid Factor Complement C4 Miscellaneous Test Crossmatch 11/17/16 11/17/16 11/17/16 03:20 03:20 03:20 WBC RBC 2.55 L Hgb 7.3 L Hct 21.9 L MCV MCH MCHC RDW 16.6 H Plt Count Lymph % (Auto) Simpson % (Auto) 11.5 H Lymph # Simpson # 1.1 H Baso # Seg Neutrophils % Seg Neuts % (Manual) Lymphocytes % (Manual) Monocytes % (Manual) Eosinophils % (Manual) Basophils % (Manual) Nucleated RBC % Seg Neutrophils # Seg Neutrophils # Man Lymphocytes # (Manual) Monocytes # (Manual) Eosinophils # (Manual) Basophils # (Manual) PT 16.8 H INR 1.37 H Fibrinogen dRVVT Confirm Interp Factor V Activity POC ABG pH POC ABG pCO2 POC ABG pO2 ABG pO2 ABG HCO3 ABG Base Excess ABG Hemoglobin Oxyhemoglobin Sodium Potassium 3.5 L Chloride Carbon Dioxide BUN 21 H Creatinine Glucose POC Glucose Lactic Acid Calcium 7.9 L Phosphorus Magnesium Direct Bilirubin AST ALT Alkaline Phosphatase Lactate Dehydrogenase Troponin T C-Reactive Protein Total Protein Albumin Prealbumin Triglycerides Cholesterol LDL Cholesterol Direct HDL Cholesterol Urine pH Urine WBC (Auto) Urine Creatinine Urine Total Protein Fluid Total Protein Vancomycin Trough Rheumatoid Factor Complement C4 Miscellaneous Test Crossmatch 11/17/16 11/17/16 11/17/16 06:34 11:21 21:22 WBC RBC Hgb Hct MCV MCH MCHC RDW Plt Count Lymph % (Auto) Simpson % (Auto) Lymph # Simpson # Baso # Seg Neutrophils % Seg Neuts % (Manual) Lymphocytes % (Manual) Monocytes % (Manual) Eosinophils % (Manual) Basophils % (Manual) Nucleated RBC % Seg Neutrophils # Seg Neutrophils # Man Lymphocytes # (Manual) Monocytes # (Manual) Eosinophils # (Manual) Basophils # (Manual) PT INR Fibrinogen dRVVT Confirm Interp Factor V Activity POC ABG pH 7.467 H POC ABG pCO2 POC ABG pO2 73 L ABG pO2 ABG HCO3 ABG Base Excess ABG Hemoglobin Oxyhemoglobin Sodium Potassium Chloride Carbon Dioxide BUN Creatinine Glucose POC Glucose 121 H 119 H Lactic Acid Calcium Phosphorus Magnesium Direct Bilirubin AST ALT Alkaline Phosphatase Lactate Dehydrogenase Troponin T C-Reactive Protein Total Protein Albumin Prealbumin Triglycerides Cholesterol LDL Cholesterol Direct HDL Cholesterol Urine pH Urine WBC (Auto) Urine Creatinine Urine Total Protein Fluid Total Protein Vancomycin Trough Rheumatoid Factor Complement C4 Miscellaneous Test Crossmatch 11/18/16 11/18/16 11/19/16 12:16 17:19 00:00 WBC RBC Hgb Hct MCV MCH MCHC RDW Plt Count Lymph % (Auto) Simpson % (Auto) Lymph # Simpson # Baso # Seg Neutrophils % Seg Neuts % (Manual) Lymphocytes % (Manual) Monocytes % (Manual) Eosinophils % (Manual) Basophils % (Manual) Nucleated RBC % Seg Neutrophils # Seg Neutrophils # Man Lymphocytes # (Manual) Monocytes # (Manual) Eosinophils # (Manual) Basophils # (Manual) PT INR Fibrinogen dRVVT Confirm Interp Factor V Activity POC ABG pH POC ABG pCO2 POC ABG pO2 ABG pO2 ABG HCO3 ABG Base Excess ABG Hemoglobin Oxyhemoglobin Sodium Potassium Chloride Carbon Dioxide BUN Creatinine Glucose POC Glucose 124 H 162 H 139 H Lactic Acid Calcium Phosphorus Magnesium Direct Bilirubin AST ALT Alkaline Phosphatase Lactate Dehydrogenase Troponin T C-Reactive Protein Total Protein Albumin Prealbumin Triglycerides Cholesterol LDL Cholesterol Direct HDL Cholesterol Urine pH Urine WBC (Auto) Urine Creatinine Urine Total Protein Fluid Total Protein Vancomycin Trough Rheumatoid Factor Complement C4 Miscellaneous Test Crossmatch 11/19/16 11/19/16 11/20/16 05:00 12:43 00:40 WBC RBC Hgb Hct MCV MCH MCHC RDW Plt Count Lymph % (Auto) Simpson % (Auto) Lymph # Simpson # Baso # Seg Neutrophils % Seg Neuts % (Manual) Lymphocytes % (Manual) Monocytes % (Manual) Eosinophils % (Manual) Basophils % (Manual) Nucleated RBC % Seg Neutrophils # Seg Neutrophils # Man Lymphocytes # (Manual) Monocytes # (Manual) Eosinophils # (Manual) Basophils # (Manual) PT INR Fibrinogen dRVVT Confirm Interp Factor V Activity POC ABG pH POC ABG pCO2 POC ABG pO2 ABG pO2 ABG HCO3 ABG Base Excess ABG Hemoglobin Oxyhemoglobin Sodium Potassium Chloride Carbon Dioxide BUN Creatinine Glucose POC Glucose 110 H 125 H 136 H Lactic Acid Calcium Phosphorus Magnesium Direct Bilirubin AST ALT Alkaline Phosphatase Lactate Dehydrogenase Troponin T C-Reactive Protein Total Protein Albumin Prealbumin Triglycerides Cholesterol LDL Cholesterol Direct HDL Cholesterol Urine pH Urine WBC (Auto) Urine Creatinine Urine Total Protein Fluid Total Protein Vancomycin Trough Rheumatoid Factor Complement C4 Miscellaneous Test Crossmatch 11/20/16 11/20/16 11/20/16 05:00 05:00 05:51 WBC 13.1 H RBC 2.74 L Hgb 7.7 L Hct 23.6 L MCV MCH MCHC RDW 16.9 H Plt Count Lymph % (Auto) Simpson % (Auto) 10.8 H Lymph # Simpson # 1.4 H Baso # Seg Neutrophils % Seg Neuts % (Manual) Lymphocytes % (Manual) Monocytes % (Manual) Eosinophils % (Manual) Basophils % (Manual) Nucleated RBC % Seg Neutrophils # 7.9 H Seg Neutrophils # Man Lymphocytes # (Manual) Monocytes # (Manual) Eosinophils # (Manual) Basophils # (Manual) PT INR Fibrinogen dRVVT Confirm Interp Factor V Activity POC ABG pH POC ABG pCO2 POC ABG pO2 ABG pO2 ABG HCO3 ABG Base Excess ABG Hemoglobin Oxyhemoglobin Sodium Potassium Chloride Carbon Dioxide BUN 31 H Creatinine 1.8 H Glucose 129 H POC Glucose 133 H Lactic Acid Calcium Phosphorus Magnesium Direct Bilirubin AST ALT Alkaline Phosphatase Lactate Dehydrogenase Troponin T C-Reactive Protein Total Protein Albumin Prealbumin Triglycerides Cholesterol LDL Cholesterol Direct HDL Cholesterol Urine pH Urine WBC (Auto) Urine Creatinine Urine Total Protein Fluid Total Protein Vancomycin Trough Rheumatoid Factor Complement C4 Miscellaneous Test Crossmatch 11/20/16 11/20/16 11/21/16 12:40 18:10 01:20 WBC RBC Hgb Hct MCV MCH MCHC RDW Plt Count Lymph % (Auto) Simpson % (Auto) Lymph # Simpson # Baso # Seg Neutrophils % Seg Neuts % (Manual) Lymphocytes % (Manual) Monocytes % (Manual) Eosinophils % (Manual) Basophils % (Manual) Nucleated RBC % Seg Neutrophils # Seg Neutrophils # Man Lymphocytes # (Manual) Monocytes # (Manual) Eosinophils # (Manual) Basophils # (Manual) PT INR Fibrinogen dRVVT Confirm Interp Factor V Activity POC ABG pH POC ABG pCO2 POC ABG pO2 ABG pO2 ABG HCO3 ABG Base Excess ABG Hemoglobin Oxyhemoglobin Sodium Potassium Chloride Carbon Dioxide BUN Creatinine Glucose POC Glucose 134 H 138 H 136 H Lactic Acid Calcium Phosphorus Magnesium Direct Bilirubin AST ALT Alkaline Phosphatase Lactate Dehydrogenase Troponin T C-Reactive Protein Total Protein Albumin Prealbumin Triglycerides Cholesterol LDL Cholesterol Direct HDL Cholesterol Urine pH Urine WBC (Auto) Urine Creatinine Urine Total Protein Fluid Total Protein Vancomycin Trough Rheumatoid Factor Complement C4 Miscellaneous Test Crossmatch 11/21/16 11/21/16 11/21/16 07:04 07:45 07:45 WBC 22.0 H RBC 2.91 L Hgb 8.2 L Hct 25.4 L MCV MCH MCHC RDW 17.1 H Plt Count Lymph % (Auto) Simpson % (Auto) Lymph # Simpson # Baso # Seg Neutrophils % Seg Neuts % (Manual) Lymphocytes % (Manual) 8.0 L Monocytes % (Manual) Eosinophils % (Manual) Basophils % (Manual) Nucleated RBC % Seg Neutrophils # Seg Neutrophils # Man 14.7 H Lymphocytes # (Manual) Monocytes # (Manual) 1.1 H Eosinophils # (Manual) Basophils # (Manual) PT INR Fibrinogen dRVVT Confirm Interp Factor V Activity POC ABG pH POC ABG pCO2 POC ABG pO2 ABG pO2 ABG HCO3 ABG Base Excess ABG Hemoglobin Oxyhemoglobin Sodium Potassium Chloride Carbon Dioxide BUN 42 H Creatinine 2.0 H Glucose POC Glucose 108 H Lactic Acid Calcium Phosphorus Magnesium Direct Bilirubin AST ALT Alkaline Phosphatase Lactate Dehydrogenase Troponin T C-Reactive Protein Total Protein Albumin Prealbumin Triglycerides Cholesterol LDL Cholesterol Direct HDL Cholesterol Urine pH Urine WBC (Auto) Urine Creatinine Urine Total Protein Fluid Total Protein Vancomycin Trough Rheumatoid Factor Complement C4 Miscellaneous Test Crossmatch 11/21/16 11/21/16 11/21/16 08:38 10:09 11:20 WBC RBC Hgb Hct MCV MCH MCHC RDW Plt Count Lymph % (Auto) Simpson % (Auto) Lymph # Simpson # Baso # Seg Neutrophils % Seg Neuts % (Manual) Lymphocytes % (Manual) Monocytes % (Manual) Eosinophils % (Manual) Basophils % (Manual) Nucleated RBC % Seg Neutrophils # Seg Neutrophils # Man Lymphocytes # (Manual) Monocytes # (Manual) Eosinophils # (Manual) Basophils # (Manual) PT INR Fibrinogen dRVVT Confirm Interp Factor V Activity POC ABG pH 7.346 L POC ABG pCO2 34.4 L POC ABG pO2 314 H ABG pO2 ABG HCO3 ABG Base Excess ABG Hemoglobin Oxyhemoglobin Sodium Potassium Chloride Carbon Dioxide BUN Creatinine Glucose POC Glucose 195 H 153 H Lactic Acid Calcium Phosphorus Magnesium Direct Bilirubin AST ALT Alkaline Phosphatase Lactate Dehydrogenase Troponin T C-Reactive Protein Total Protein Albumin Prealbumin Triglycerides Cholesterol LDL Cholesterol Direct HDL Cholesterol Urine pH Urine WBC (Auto) Urine Creatinine Urine Total Protein Fluid Total Protein Vancomycin Trough Rheumatoid Factor Complement C4 Miscellaneous Test Crossmatch 11/21/16 11/22/16 11/22/16 23:37 04:48 05:00 WBC 29.7 H RBC 2.73 L Hgb 7.5 L Hct 24.2 L MCV MCH 27 L MCHC RDW 17.4 H Plt Count Lymph % (Auto) Simpson % (Auto) Lymph # Simpson # Baso # Seg Neutrophils % Seg Neuts % (Manual) Lymphocytes % (Manual) 7.0 L Monocytes % (Manual) Eosinophils % (Manual) Basophils % (Manual) Nucleated RBC % Seg Neutrophils # Seg Neutrophils # Man 15.4 H Lymphocytes # (Manual) Monocytes # (Manual) Eosinophils # (Manual) Basophils # (Manual) PT INR Fibrinogen dRVVT Confirm Interp Factor V Activity POC ABG pH POC ABG pCO2 24.6 L POC ABG pO2 189 H ABG pO2 ABG HCO3 ABG Base Excess ABG Hemoglobin Oxyhemoglobin Sodium Potassium Chloride Carbon Dioxide BUN Creatinine Glucose POC Glucose 65 L Lactic Acid Calcium Phosphorus Magnesium Direct Bilirubin AST ALT Alkaline Phosphatase Lactate Dehydrogenase Troponin T C-Reactive Protein Total Protein Albumin Prealbumin Triglycerides Cholesterol LDL Cholesterol Direct HDL Cholesterol Urine pH Urine WBC (Auto) Urine Creatinine Urine Total Protein Fluid Total Protein Vancomycin Trough Rheumatoid Factor Complement C4 Miscellaneous Test Crossmatch 11/22/16 11/23/16 11/23/16 05:00 03:44 04:06 WBC RBC 2.52 L Hgb 7.2 L Hct 21.5 L MCV MCH MCHC RDW 17.1 H Plt Count Lymph % (Auto) Simpson % (Auto) 12.4 H Lymph # Simpson # 1.4 H Baso # Seg Neutrophils % Seg Neuts % (Manual) Lymphocytes % (Manual) Monocytes % (Manual) Eosinophils % (Manual) Basophils % (Manual) Nucleated RBC % Seg Neutrophils # Seg Neutrophils # Man Lymphocytes # (Manual) Monocytes # (Manual) Eosinophils # (Manual) Basophils # (Manual) PT INR Fibrinogen dRVVT Confirm Interp Factor V Activity POC ABG pH 7.493 H POC ABG pCO2 29.5 L POC ABG pO2 49 L ABG pO2 ABG HCO3 ABG Base Excess ABG Hemoglobin Oxyhemoglobin Sodium 134 L Potassium Chloride 95.9 L Carbon Dioxide 14 L D BUN 51 H Creatinine 2.6 H Glucose POC Glucose Lactic Acid Calcium Phosphorus Magnesium Direct Bilirubin AST ALT Alkaline Phosphatase Lactate Dehydrogenase Troponin T C-Reactive Protein Total Protein Albumin Prealbumin Triglycerides Cholesterol LDL Cholesterol Direct HDL Cholesterol Urine pH Urine WBC (Auto) Urine Creatinine Urine Total Protein Fluid Total Protein Vancomycin Trough Rheumatoid Factor Complement C4 Miscellaneous Test Crossmatch 11/23/16 11/23/16 11/24/16 04:06 11:29 06:39 WBC RBC Hgb Hct MCV MCH MCHC RDW Plt Count Lymph % (Auto) Simpson % (Auto) Lymph # Simpson # Baso # Seg Neutrophils % Seg Neuts % (Manual) Lymphocytes % (Manual) Monocytes % (Manual) Eosinophils % (Manual) Basophils % (Manual) Nucleated RBC % Seg Neutrophils # Seg Neutrophils # Man Lymphocytes # (Manual) Monocytes # (Manual) Eosinophils # (Manual) Basophils # (Manual) PT INR Fibrinogen dRVVT Confirm Interp Factor V Activity POC ABG pH POC ABG pCO2 POC ABG pO2 ABG pO2 ABG HCO3 ABG Base Excess ABG Hemoglobin Oxyhemoglobin Sodium 136 L Potassium Chloride 95.2 L Carbon Dioxide BUN 60 H Creatinine 2.9 H Glucose POC Glucose 69 L 305 H Lactic Acid Calcium Phosphorus Magnesium 1.60 L Direct Bilirubin AST ALT Alkaline Phosphatase Lactate Dehydrogenase Troponin T C-Reactive Protein Total Protein Albumin Prealbumin Triglycerides Cholesterol LDL Cholesterol Direct HDL Cholesterol Urine pH Urine WBC (Auto) Urine Creatinine Urine Total Protein Fluid Total Protein Vancomycin Trough Rheumatoid Factor Complement C4 Miscellaneous Test Crossmatch 11/24/16 11/24/16 11/24/16 06:43 08:08 08:08 WBC 11.2 H RBC 2.47 L Hgb 6.8 L Hct 20.6 L MCV MCH MCHC RDW 17.0 H Plt Count Lymph % (Auto) Simpson % (Auto) 10.3 H Lymph # Simpson # 1.2 H Baso # Seg Neutrophils % Seg Neuts % (Manual) Lymphocytes % (Manual) Monocytes % (Manual) Eosinophils % (Manual) Basophils % (Manual) Nucleated RBC % Seg Neutrophils # Seg Neutrophils # Man Lymphocytes # (Manual) Monocytes # (Manual) Eosinophils # (Manual) Basophils # (Manual) PT INR Fibrinogen dRVVT Confirm Interp Factor V Activity POC ABG pH POC ABG pCO2 POC ABG pO2 ABG pO2 ABG HCO3 ABG Base Excess ABG Hemoglobin Oxyhemoglobin Sodium 135 L Potassium Chloride 96.3 L Carbon Dioxide BUN 61 H Creatinine 3.1 H Glucose POC Glucose 62 L Lactic Acid Calcium 8.2 L Phosphorus Magnesium Direct Bilirubin AST ALT Alkaline Phosphatase Lactate Dehydrogenase Troponin T C-Reactive Protein Total Protein Albumin Prealbumin Triglycerides Cholesterol LDL Cholesterol Direct HDL Cholesterol Urine pH Urine WBC (Auto) Urine Creatinine Urine Total Protein Fluid Total Protein Vancomycin Trough Rheumatoid Factor Complement C4 Miscellaneous Test Crossmatch 11/24/16 11/24/16 11/24/16 08:34 11:20 12:41 WBC RBC Hgb Hct MCV MCH MCHC RDW Plt Count Lymph % (Auto) Simpson % (Auto) Lymph # Simpson # Baso # Seg Neutrophils % Seg Neuts % (Manual) Lymphocytes % (Manual) Monocytes % (Manual) Eosinophils % (Manual) Basophils % (Manual) Nucleated RBC % Seg Neutrophils # Seg Neutrophils # Man Lymphocytes # (Manual) Monocytes # (Manual) Eosinophils # (Manual) Basophils # (Manual) PT INR Fibrinogen dRVVT Confirm Interp Factor V Activity POC ABG pH POC ABG pCO2 POC ABG pO2 ABG pO2 ABG HCO3 ABG Base Excess ABG Hemoglobin Oxyhemoglobin Sodium Potassium Chloride Carbon Dioxide BUN Creatinine Glucose POC Glucose 108 H Lactic Acid Calcium Phosphorus Magnesium 1.60 L Direct Bilirubin AST ALT Alkaline Phosphatase Lactate Dehydrogenase Troponin T C-Reactive Protein Total Protein Albumin Prealbumin Triglycerides Cholesterol LDL Cholesterol Direct HDL Cholesterol Urine pH Urine WBC (Auto) Urine Creatinine Urine Total Protein Fluid Total Protein Vancomycin Trough Rheumatoid Factor Complement C4 Miscellaneous Test Crossmatch See Detail 11/25/16 11/25/16 11/25/16 00:03 04:42 04:42 WBC RBC 3.03 L Hgb 8.6 L Hct 25.3 L MCV MCH MCHC RDW 16.2 H Plt Count Lymph % (Auto) Simpson % (Auto) 8.1 H Lymph # Simpson # Baso # Seg Neutrophils % 71.3 H Seg Neuts % (Manual) Lymphocytes % (Manual) Monocytes % (Manual) Eosinophils % (Manual) Basophils % (Manual) Nucleated RBC % Seg Neutrophils # Seg Neutrophils # Man Lymphocytes # (Manual) Monocytes # (Manual) Eosinophils # (Manual) Basophils # (Manual) PT INR Fibrinogen dRVVT Confirm Interp Factor V Activity POC ABG pH POC ABG pCO2 POC ABG pO2 ABG pO2 ABG HCO3 ABG Base Excess ABG Hemoglobin Oxyhemoglobin Sodium Potassium Chloride Carbon Dioxide BUN 61 H Creatinine 3.0 H Glucose 102 H POC Glucose 113 H Lactic Acid Calcium 8.2 L Phosphorus Magnesium Direct Bilirubin AST ALT Alkaline Phosphatase 142 H Lactate Dehydrogenase Troponin T C-Reactive Protein Total Protein 5.7 L Albumin 1.5 L Prealbumin Triglycerides Cholesterol LDL Cholesterol Direct HDL Cholesterol Urine pH Urine WBC (Auto) Urine Creatinine Urine Total Protein Fluid Total Protein Vancomycin Trough Rheumatoid Factor Complement C4 Miscellaneous Test Crossmatch 11/25/16 11/25/16 11/25/16 05:12 11:31 14:12 WBC RBC Hgb Hct MCV MCH MCHC RDW Plt Count Lymph % (Auto) Simpson % (Auto) Lymph # Simpson # Baso # Seg Neutrophils % Seg Neuts % (Manual) Lymphocytes % (Manual) Monocytes % (Manual) Eosinophils % (Manual) Basophils % (Manual) Nucleated RBC % Seg Neutrophils # Seg Neutrophils # Man Lymphocytes # (Manual) Monocytes # (Manual) Eosinophils # (Manual) Basophils # (Manual) PT INR Fibrinogen dRVVT Confirm Interp Factor V Activity POC ABG pH 7.487 H POC ABG pCO2 POC ABG pO2 153 H ABG pO2 ABG HCO3 ABG Base Excess ABG Hemoglobin Oxyhemoglobin Sodium Potassium Chloride Carbon Dioxide BUN Creatinine Glucose POC Glucose 131 H 140 H Lactic Acid Calcium Phosphorus Magnesium Direct Bilirubin AST ALT Alkaline Phosphatase Lactate Dehydrogenase Troponin T C-Reactive Protein Total Protein Albumin Prealbumin Triglycerides Cholesterol LDL Cholesterol Direct HDL Cholesterol Urine pH Urine WBC (Auto) Urine Creatinine Urine Total Protein Fluid Total Protein Vancomycin Trough Rheumatoid Factor Complement C4 Miscellaneous Test Crossmatch 11/25/16 11/26/16 11/26/16 17:23 00:09 05:13 WBC RBC 2.94 L Hgb 8.4 L Hct 24.6 L MCV MCH MCHC RDW 16.4 H Plt Count Lymph % (Auto) Simpson % (Auto) 12.3 H Lymph # Simpson # 1.1 H Baso # Seg Neutrophils % Seg Neuts % (Manual) Lymphocytes % (Manual) Monocytes % (Manual) Eosinophils % (Manual) Basophils % (Manual) Nucleated RBC % Seg Neutrophils # Seg Neutrophils # Man Lymphocytes # (Manual) Monocytes # (Manual) Eosinophils # (Manual) Basophils # (Manual) PT INR Fibrinogen dRVVT Confirm Interp Factor V Activity POC ABG pH POC ABG pCO2 POC ABG pO2 ABG pO2 ABG HCO3 ABG Base Excess ABG Hemoglobin Oxyhemoglobin Sodium Potassium Chloride Carbon Dioxide BUN Creatinine Glucose POC Glucose 146 H 112 H Lactic Acid Calcium Phosphorus Magnesium Direct Bilirubin AST ALT Alkaline Phosphatase Lactate Dehydrogenase Troponin T C-Reactive Protein Total Protein Albumin Prealbumin Triglycerides Cholesterol LDL Cholesterol Direct HDL Cholesterol Urine pH Urine WBC (Auto) Urine Creatinine Urine Total Protein Fluid Total Protein Vancomycin Trough Rheumatoid Factor Complement C4 Miscellaneous Test Crossmatch 11/26/16 11/26/16 11/26/16 05:13 05:28 11:53 WBC RBC Hgb Hct MCV MCH MCHC RDW Plt Count Lymph % (Auto) Simpson % (Auto) Lymph # Simpson # Baso # Seg Neutrophils % Seg Neuts % (Manual) Lymphocytes % (Manual) Monocytes % (Manual) Eosinophils % (Manual) Basophils % (Manual) Nucleated RBC % Seg Neutrophils # Seg Neutrophils # Man Lymphocytes # (Manual) Monocytes # (Manual) Eosinophils # (Manual) Basophils # (Manual) PT INR Fibrinogen dRVVT Confirm Interp Factor V Activity POC ABG pH POC ABG pCO2 POC ABG pO2 ABG pO2 ABG HCO3 ABG Base Excess ABG Hemoglobin Oxyhemoglobin Sodium Potassium Chloride 97.8 L Carbon Dioxide BUN 37 H Creatinine 2.0 H Glucose 109 H POC Glucose 117 H 111 H Lactic Acid Calcium 7.9 L Phosphorus 1.80 L D Magnesium Direct Bilirubin AST ALT Alkaline Phosphatase Lactate Dehydrogenase Troponin T C-Reactive Protein Total Protein Albumin Prealbumin Triglycerides Cholesterol LDL Cholesterol Direct HDL Cholesterol Urine pH Urine WBC (Auto) Urine Creatinine Urine Total Protein Fluid Total Protein Vancomycin Trough Rheumatoid Factor Complement C4 Miscellaneous Test Crossmatch 11/26/16 11/27/16 11/27/16 17:14 04:50 06:02 WBC RBC Hgb Hct MCV MCH MCHC RDW Plt Count Lymph % (Auto) Simpson % (Auto) Lymph # Simpson # Baso # Seg Neutrophils % Seg Neuts % (Manual) Lymphocytes % (Manual) Monocytes % (Manual) Eosinophils % (Manual) Basophils % (Manual) Nucleated RBC % Seg Neutrophils # Seg Neutrophils # Man Lymphocytes # (Manual) Monocytes # (Manual) Eosinophils # (Manual) Basophils # (Manual) PT INR Fibrinogen dRVVT Confirm Interp Factor V Activity POC ABG pH POC ABG pCO2 POC ABG pO2 ABG pO2 75.2 L ABG HCO3 26.4 H ABG Base Excess ABG Hemoglobin 7.6 L Oxyhemoglobin 94.8 L Sodium Potassium Chloride Carbon Dioxide BUN 49 H Creatinine 2.3 H Glucose POC Glucose 115 H Lactic Acid Calcium Phosphorus 1.50 L Magnesium Direct Bilirubin AST ALT Alkaline Phosphatase Lactate Dehydrogenase Troponin T C-Reactive Protein Total Protein Albumin Prealbumin Triglycerides Cholesterol LDL Cholesterol Direct HDL Cholesterol Urine pH Urine WBC (Auto) Urine Creatinine Urine Total Protein Fluid Total Protein Vancomycin Trough Rheumatoid Factor Complement C4 Miscellaneous Test Crossmatch 11/27/16 11/27/16 11/27/16 06:02 11:25 17:25 WBC 11.6 H RBC 2.75 L Hgb 7.6 L Hct 23.4 L MCV MCH MCHC RDW 16.5 H Plt Count Lymph % (Auto) Simpson % (Auto) Lymph # Simpson # Baso # Seg Neutrophils % Seg Neuts % (Manual) Lymphocytes % (Manual) Monocytes % (Manual) Eosinophils % (Manual) Basophils % (Manual) Nucleated RBC % Seg Neutrophils # Seg Neutrophils # Man Lymphocytes # (Manual) Monocytes # (Manual) Eosinophils # (Manual) Basophils # (Manual) PT INR Fibrinogen dRVVT Confirm Interp Factor V Activity POC ABG pH POC ABG pCO2 POC ABG pO2 ABG pO2 ABG HCO3 ABG Base Excess ABG Hemoglobin Oxyhemoglobin Sodium Potassium Chloride Carbon Dioxide BUN Creatinine Glucose POC Glucose 114 H 126 H Lactic Acid Calcium Phosphorus Magnesium Direct Bilirubin AST ALT Alkaline Phosphatase Lactate Dehydrogenase Troponin T C-Reactive Protein Total Protein Albumin Prealbumin Triglycerides Cholesterol LDL Cholesterol Direct HDL Cholesterol Urine pH Urine WBC (Auto) Urine Creatinine Urine Total Protein Fluid Total Protein Vancomycin Trough Rheumatoid Factor Complement C4 Miscellaneous Test Crossmatch 11/28/16 11/28/16 11/28/16 04:45 05:33 05:44 WBC RBC Hgb Hct MCV MCH MCHC RDW Plt Count Lymph % (Auto) Simpson % (Auto) Lymph # Simpson # Baso # Seg Neutrophils % Seg Neuts % (Manual) Lymphocytes % (Manual) Monocytes % (Manual) Eosinophils % (Manual) Basophils % (Manual) Nucleated RBC % Seg Neutrophils # Seg Neutrophils # Man Lymphocytes # (Manual) Monocytes # (Manual) Eosinophils # (Manual) Basophils # (Manual) PT INR Fibrinogen dRVVT Confirm Interp Factor V Activity POC ABG pH POC ABG pCO2 POC ABG pO2 ABG pO2 99.3 H ABG HCO3 ABG Base Excess ABG Hemoglobin 8.3 L Oxyhemoglobin Sodium Potassium Chloride Carbon Dioxide BUN 63 H Creatinine 2.4 H Glucose 102 H POC Glucose 108 H Lactic Acid Calcium Phosphorus 1.80 L Magnesium Direct Bilirubin AST ALT Alkaline Phosphatase Lactate Dehydrogenase Troponin T C-Reactive Protein Total Protein Albumin Prealbumin Triglycerides Cholesterol LDL Cholesterol Direct HDL Cholesterol Urine pH Urine WBC (Auto) Urine Creatinine Urine Total Protein Fluid Total Protein Vancomycin Trough Rheumatoid Factor Complement C4 Miscellaneous Test Crossmatch 11/28/16 11/28/16 11/28/16 12:31 16:09 23:46 WBC RBC Hgb Hct MCV MCH MCHC RDW Plt Count Lymph % (Auto) Simpson % (Auto) Lymph # Simpson # Baso # Seg Neutrophils % Seg Neuts % (Manual) Lymphocytes % (Manual) Monocytes % (Manual) Eosinophils % (Manual) Basophils % (Manual) Nucleated RBC % Seg Neutrophils # Seg Neutrophils # Man Lymphocytes # (Manual) Monocytes # (Manual) Eosinophils # (Manual) Basophils # (Manual) PT INR Fibrinogen dRVVT Confirm Interp Factor V Activity POC ABG pH POC ABG pCO2 POC ABG pO2 ABG pO2 ABG HCO3 ABG Base Excess ABG Hemoglobin Oxyhemoglobin Sodium Potassium Chloride Carbon Dioxide BUN Creatinine Glucose POC Glucose 126 H 111 H 119 H Lactic Acid Calcium Phosphorus Magnesium Direct Bilirubin AST ALT Alkaline Phosphatase Lactate Dehydrogenase Troponin T C-Reactive Protein Total Protein Albumin Prealbumin Triglycerides Cholesterol LDL Cholesterol Direct HDL Cholesterol Urine pH Urine WBC (Auto) Urine Creatinine Urine Total Protein Fluid Total Protein Vancomycin Trough Rheumatoid Factor Complement C4 Miscellaneous Test Crossmatch 11/29/16 11/29/16 11/29/16 03:33 04:52 05:10 WBC RBC Hgb Hct MCV MCH MCHC RDW Plt Count Lymph % (Auto) Simpson % (Auto) Lymph # Simpson # Baso # Seg Neutrophils % Seg Neuts % (Manual) Lymphocytes % (Manual) Monocytes % (Manual) Eosinophils % (Manual) Basophils % (Manual) Nucleated RBC % Seg Neutrophils # Seg Neutrophils # Man Lymphocytes # (Manual) Monocytes # (Manual) Eosinophils # (Manual) Basophils # (Manual) PT INR Fibrinogen dRVVT Confirm Interp Factor V Activity POC ABG pH POC ABG pCO2 POC ABG pO2 ABG pO2 ABG HCO3 ABG Base Excess ABG Hemoglobin 7.0 L Oxyhemoglobin 94.9 L Sodium Potassium Chloride Carbon Dioxide BUN 73 H Creatinine 2.7 H Glucose POC Glucose 108 H Lactic Acid Calcium Phosphorus Magnesium Direct Bilirubin AST ALT Alkaline Phosphatase Lactate Dehydrogenase Troponin T C-Reactive Protein Total Protein Albumin Prealbumin Triglycerides Cholesterol LDL Cholesterol Direct HDL Cholesterol Urine pH Urine WBC (Auto) Urine Creatinine Urine Total Protein Fluid Total Protein Vancomycin Trough Rheumatoid Factor Complement C4 Miscellaneous Test Crossmatch 11/29/16 11/29/16 11/29/16 12:16 18:05 23:46 WBC RBC Hgb Hct MCV MCH MCHC RDW Plt Count Lymph % (Auto) Simpson % (Auto) Lymph # Simpson # Baso # Seg Neutrophils % Seg Neuts % (Manual) Lymphocytes % (Manual) Monocytes % (Manual) Eosinophils % (Manual) Basophils % (Manual) Nucleated RBC % Seg Neutrophils # Seg Neutrophils # Man Lymphocytes # (Manual) Monocytes # (Manual) Eosinophils # (Manual) Basophils # (Manual) PT INR Fibrinogen dRVVT Confirm Interp Factor V Activity POC ABG pH POC ABG pCO2 POC ABG pO2 ABG pO2 ABG HCO3 ABG Base Excess ABG Hemoglobin Oxyhemoglobin Sodium Potassium Chloride Carbon Dioxide BUN Creatinine Glucose POC Glucose 133 H 146 H 141 H Lactic Acid Calcium Phosphorus Magnesium Direct Bilirubin AST ALT Alkaline Phosphatase Lactate Dehydrogenase Troponin T C-Reactive Protein Total Protein Albumin Prealbumin Triglycerides Cholesterol LDL Cholesterol Direct HDL Cholesterol Urine pH Urine WBC (Auto) Urine Creatinine Urine Total Protein Fluid Total Protein Vancomycin Trough Rheumatoid Factor Complement C4 Miscellaneous Test Crossmatch 11/30/16 11/30/16 11/30/16 04:17 04:17 04:32 WBC 12.0 H RBC 2.80 L Hgb 7.8 L Hct 23.6 L MCV MCH MCHC RDW 16.6 H Plt Count Lymph % (Auto) Simpson % (Auto) 11.3 H Lymph # Simpson # 1.4 H Baso # Seg Neutrophils % Seg Neuts % (Manual) Lymphocytes % (Manual) Monocytes % (Manual) Eosinophils % (Manual) Basophils % (Manual) Nucleated RBC % Seg Neutrophils # 8.2 H Seg Neutrophils # Man Lymphocytes # (Manual) Monocytes # (Manual) Eosinophils # (Manual) Basophils # (Manual) PT INR Fibrinogen dRVVT Confirm Interp Factor V Activity POC ABG pH POC ABG pCO2 POC ABG pO2 ABG pO2 ABG HCO3 ABG Base Excess ABG Hemoglobin Oxyhemoglobin Sodium 169 H* D Potassium 5.1 H Chloride 121.5 H Carbon Dioxide BUN 34 H Creatinine 1.3 H D Glucose 133 H POC Glucose 131 H Lactic Acid Calcium 10.3 H Phosphorus Magnesium Direct Bilirubin AST ALT Alkaline Phosphatase Lactate Dehydrogenase Troponin T C-Reactive Protein Total Protein Albumin Prealbumin Triglycerides Cholesterol LDL Cholesterol Direct HDL Cholesterol Urine pH Urine WBC (Auto) Urine Creatinine Urine Total Protein Fluid Total Protein Vancomycin Trough Rheumatoid Factor Complement C4 Miscellaneous Test Crossmatch 11/30/16 11/30/16 11/30/16 05:45 11:10 17:26 WBC RBC Hgb Hct MCV MCH MCHC RDW Plt Count Lymph % (Auto) Simpson % (Auto) Lymph # Simpson # Baso # Seg Neutrophils % Seg Neuts % (Manual) Lymphocytes % (Manual) Monocytes % (Manual) Eosinophils % (Manual) Basophils % (Manual) Nucleated RBC % Seg Neutrophils # Seg Neutrophils # Man Lymphocytes # (Manual) Monocytes # (Manual) Eosinophils # (Manual) Basophils # (Manual) PT INR Fibrinogen dRVVT Confirm Interp Factor V Activity POC ABG pH POC ABG pCO2 POC ABG pO2 ABG pO2 ABG HCO3 ABG Base Excess ABG Hemoglobin Oxyhemoglobin Sodium Potassium Chloride Carbon Dioxide BUN 45 H Creatinine 1.6 H Glucose 131 H POC Glucose 146 H 134 H Lactic Acid Calcium Phosphorus Magnesium Direct Bilirubin AST ALT Alkaline Phosphatase Lactate Dehydrogenase Troponin T C-Reactive Protein Total Protein Albumin Prealbumin Triglycerides Cholesterol LDL Cholesterol Direct HDL Cholesterol Urine pH Urine WBC (Auto) Urine Creatinine Urine Total Protein Fluid Total Protein Vancomycin Trough Rheumatoid Factor Complement C4 Miscellaneous Test Crossmatch 11/30/16 12/01/16 12/01/16 23:35 00:06 03:35 WBC RBC Hgb Hct MCV MCH MCHC RDW Plt Count Lymph % (Auto) Simpson % (Auto) Lymph # Simpson # Baso # Seg Neutrophils % Seg Neuts % (Manual) Lymphocytes % (Manual) Monocytes % (Manual) Eosinophils % (Manual) Basophils % (Manual) Nucleated RBC % Seg Neutrophils # Seg Neutrophils # Man Lymphocytes # (Manual) Monocytes # (Manual) Eosinophils # (Manual) Basophils # (Manual) PT INR Fibrinogen dRVVT Confirm Interp Factor V Activity POC ABG pH POC ABG pCO2 POC ABG pO2 ABG pO2 ABG HCO3 ABG Base Excess ABG Hemoglobin 6.9 L Oxyhemoglobin Sodium Potassium Chloride Carbon Dioxide BUN 58 H Creatinine 1.8 H Glucose 146 H POC Glucose 151 H Lactic Acid Calcium Phosphorus Magnesium Direct Bilirubin AST ALT Alkaline Phosphatase Lactate Dehydrogenase Troponin T C-Reactive Protein Total Protein Albumin Prealbumin Triglycerides Cholesterol LDL Cholesterol Direct HDL Cholesterol Urine pH Urine WBC (Auto) Urine Creatinine Urine Total Protein Fluid Total Protein Vancomycin Trough Rheumatoid Factor Complement C4 Miscellaneous Test Crossmatch 12/01/16 12/01/16 12/01/16 03:35 05:47 11:52 WBC 12.3 H RBC 2.82 L Hgb 7.8 L Hct 23.7 L MCV MCH MCHC RDW 16.7 H Plt Count Lymph % (Auto) Simpson % (Auto) 9.8 H Lymph # Simpson # 1.2 H Baso # Seg Neutrophils % Seg Neuts % (Manual) Lymphocytes % (Manual) Monocytes % (Manual) Eosinophils % (Manual) Basophils % (Manual) Nucleated RBC % Seg Neutrophils # 8.4 H Seg Neutrophils # Man Lymphocytes # (Manual) Monocytes # (Manual) Eosinophils # (Manual) Basophils # (Manual) PT INR Fibrinogen dRVVT Confirm Interp Factor V Activity POC ABG pH POC ABG pCO2 POC ABG pO2 ABG pO2 ABG HCO3 ABG Base Excess ABG Hemoglobin Oxyhemoglobin Sodium Potassium Chloride Carbon Dioxide BUN Creatinine Glucose POC Glucose 152 H 152 H Lactic Acid Calcium Phosphorus Magnesium Direct Bilirubin AST ALT Alkaline Phosphatase Lactate Dehydrogenase Troponin T C-Reactive Protein Total Protein Albumin Prealbumin Triglycerides Cholesterol LDL Cholesterol Direct HDL Cholesterol Urine pH Urine WBC (Auto) Urine Creatinine Urine Total Protein Fluid Total Protein Vancomycin Trough Rheumatoid Factor Complement C4 Miscellaneous Test Crossmatch 12/01/16 12/01/16 12/02/16 17:40 23:41 05:00 WBC RBC Hgb Hct MCV MCH MCHC RDW Plt Count Lymph % (Auto) Simpson % (Auto) Lymph # Simpson # Baso # Seg Neutrophils % Seg Neuts % (Manual) Lymphocytes % (Manual) Monocytes % (Manual) Eosinophils % (Manual) Basophils % (Manual) Nucleated RBC % Seg Neutrophils # Seg Neutrophils # Man Lymphocytes # (Manual) Monocytes # (Manual) Eosinophils # (Manual) Basophils # (Manual) PT INR Fibrinogen dRVVT Confirm Interp Factor V Activity POC ABG pH POC ABG pCO2 POC ABG pO2 ABG pO2 ABG HCO3 ABG Base Excess ABG Hemoglobin Oxyhemoglobin Sodium Potassium Chloride Carbon Dioxide BUN 45 H Creatinine Glucose 115 H POC Glucose 140 H 144 H Lactic Acid Calcium Phosphorus Magnesium Direct Bilirubin AST ALT Alkaline Phosphatase Lactate Dehydrogenase Troponin T C-Reactive Protein Total Protein Albumin Prealbumin Triglycerides Cholesterol LDL Cholesterol Direct HDL Cholesterol Urine pH Urine WBC (Auto) Urine Creatinine Urine Total Protein Fluid Total Protein Vancomycin Trough Rheumatoid Factor Complement C4 Miscellaneous Test Crossmatch 12/02/16 12/02/16 12/02/16 05:31 11:20 17:38 WBC RBC Hgb Hct MCV MCH MCHC RDW Plt Count Lymph % (Auto) Simpson % (Auto) Lymph # Simpson # Baso # Seg Neutrophils % Seg Neuts % (Manual) Lymphocytes % (Manual) Monocytes % (Manual) Eosinophils % (Manual) Basophils % (Manual) Nucleated RBC % Seg Neutrophils # Seg Neutrophils # Man Lymphocytes # (Manual) Monocytes # (Manual) Eosinophils # (Manual) Basophils # (Manual) PT INR Fibrinogen dRVVT Confirm Interp Factor V Activity POC ABG pH POC ABG pCO2 POC ABG pO2 ABG pO2 ABG HCO3 ABG Base Excess ABG Hemoglobin Oxyhemoglobin Sodium Potassium Chloride Carbon Dioxide BUN Creatinine Glucose POC Glucose 136 H 177 H 139 H Lactic Acid Calcium Phosphorus Magnesium Direct Bilirubin AST ALT Alkaline Phosphatase Lactate Dehydrogenase Troponin T C-Reactive Protein Total Protein Albumin Prealbumin Triglycerides Cholesterol LDL Cholesterol Direct HDL Cholesterol Urine pH Urine WBC (Auto) Urine Creatinine Urine Total Protein Fluid Total Protein Vancomycin Trough Rheumatoid Factor Complement C4 Miscellaneous Test Crossmatch 12/02/16 12/03/16 12/03/16 23:43 04:00 04:00 WBC 20.4 H RBC 2.74 L Hgb 7.4 L Hct 23.6 L MCV MCH 27 L MCHC RDW 17.1 H Plt Count Lymph % (Auto) Simpson % (Auto) Lymph # Simpson # Baso # Seg Neutrophils % Seg Neuts % (Manual) 31.0 L Lymphocytes % (Manual) Monocytes % (Manual) Eosinophils % (Manual) Basophils % (Manual) Nucleated RBC % Seg Neutrophils # Seg Neutrophils # Man Lymphocytes # (Manual) Monocytes # (Manual) Eosinophils # (Manual) Basophils # (Manual) PT INR Fibrinogen dRVVT Confirm Interp Factor V Activity POC ABG pH POC ABG pCO2 POC ABG pO2 ABG pO2 ABG HCO3 ABG Base Excess ABG Hemoglobin Oxyhemoglobin Sodium Potassium Chloride Carbon Dioxide BUN 61 H Creatinine 1.6 H Glucose 119 H POC Glucose 158 H Lactic Acid Calcium Phosphorus Magnesium Direct Bilirubin AST ALT Alkaline Phosphatase Lactate Dehydrogenase Troponin T C-Reactive Protein Total Protein Albumin Prealbumin Triglycerides Cholesterol LDL Cholesterol Direct HDL Cholesterol Urine pH Urine WBC (Auto) Urine Creatinine Urine Total Protein Fluid Total Protein Vancomycin Trough Rheumatoid Factor Complement C4 Miscellaneous Test Crossmatch 12/03/16 12/03/16 12/03/16 05:02 12:11 18:16 WBC RBC Hgb Hct MCV MCH MCHC RDW Plt Count Lymph % (Auto) Simpson % (Auto) Lymph # Simpson # Baso # Seg Neutrophils % Seg Neuts % (Manual) Lymphocytes % (Manual) Monocytes % (Manual) Eosinophils % (Manual) Basophils % (Manual) Nucleated RBC % Seg Neutrophils # Seg Neutrophils # Man Lymphocytes # (Manual) Monocytes # (Manual) Eosinophils # (Manual) Basophils # (Manual) PT INR Fibrinogen dRVVT Confirm Interp Factor V Activity POC ABG pH POC ABG pCO2 POC ABG pO2 ABG pO2 ABG HCO3 ABG Base Excess ABG Hemoglobin Oxyhemoglobin Sodium Potassium Chloride Carbon Dioxide BUN Creatinine Glucose POC Glucose 146 H 157 H 124 H Lactic Acid Calcium Phosphorus Magnesium Direct Bilirubin AST ALT Alkaline Phosphatase Lactate Dehydrogenase Troponin T C-Reactive Protein Total Protein Albumin Prealbumin Triglycerides Cholesterol LDL Cholesterol Direct HDL Cholesterol Urine pH Urine WBC (Auto) Urine Creatinine Urine Total Protein Fluid Total Protein Vancomycin Trough Rheumatoid Factor Complement C4 Miscellaneous Test Crossmatch 12/03/16 12/04/16 12/04/16 23:41 04:00 04:45 WBC RBC Hgb Hct MCV MCH MCHC RDW Plt Count Lymph % (Auto) Simpson % (Auto) Lymph # Simpson # Baso # Seg Neutrophils % Seg Neuts % (Manual) Lymphocytes % (Manual) Monocytes % (Manual) Eosinophils % (Manual) Basophils % (Manual) Nucleated RBC % Seg Neutrophils # Seg Neutrophils # Man Lymphocytes # (Manual) Monocytes # (Manual) Eosinophils # (Manual) Basophils # (Manual) PT INR Fibrinogen dRVVT Confirm Interp Factor V Activity POC ABG pH POC ABG pCO2 POC ABG pO2 ABG pO2 ABG HCO3 ABG Base Excess ABG Hemoglobin Oxyhemoglobin Sodium Potassium Chloride Carbon Dioxide BUN 76 H Creatinine 1.6 H Glucose POC Glucose 130 H 136 H Lactic Acid Calcium Phosphorus Magnesium Direct Bilirubin AST ALT Alkaline Phosphatase 155 H Lactate Dehydrogenase Troponin T C-Reactive Protein Total Protein 5.5 L Albumin 1.5 L Prealbumin Triglycerides Cholesterol LDL Cholesterol Direct HDL Cholesterol Urine pH Urine WBC (Auto) Urine Creatinine Urine Total Protein Fluid Total Protein Vancomycin Trough Rheumatoid Factor Complement C4 Miscellaneous Test Crossmatch 12/04/16 12/04/16 12/05/16 12:08 17:23 00:10 WBC RBC Hgb Hct MCV MCH MCHC RDW Plt Count Lymph % (Auto) Simpson % (Auto) Lymph # Simpson # Baso # Seg Neutrophils % Seg Neuts % (Manual) Lymphocytes % (Manual) Monocytes % (Manual) Eosinophils % (Manual) Basophils % (Manual) Nucleated RBC % Seg Neutrophils # Seg Neutrophils # Man Lymphocytes # (Manual) Monocytes # (Manual) Eosinophils # (Manual) Basophils # (Manual) PT INR Fibrinogen dRVVT Confirm Interp Factor V Activity POC ABG pH POC ABG pCO2 POC ABG pO2 ABG pO2 ABG HCO3 ABG Base Excess ABG Hemoglobin Oxyhemoglobin Sodium Potassium Chloride Carbon Dioxide BUN Creatinine Glucose POC Glucose 114 H 129 H 124 H Lactic Acid Calcium Phosphorus Magnesium Direct Bilirubin AST ALT Alkaline Phosphatase Lactate Dehydrogenase Troponin T C-Reactive Protein Total Protein Albumin Prealbumin Triglycerides Cholesterol LDL Cholesterol Direct HDL Cholesterol Urine pH Urine WBC (Auto) Urine Creatinine Urine Total Protein Fluid Total Protein Vancomycin Trough Rheumatoid Factor Complement C4 Miscellaneous Test Crossmatch 12/05/16 12/05/16 12/05/16 05:00 05:00 05:18 WBC RBC Hgb Hct MCV MCH MCHC RDW Plt Count Lymph % (Auto) Simpson % (Auto) Lymph # Simpson # Baso # Seg Neutrophils % Seg Neuts % (Manual) Lymphocytes % (Manual) Monocytes % (Manual) Eosinophils % (Manual) Basophils % (Manual) Nucleated RBC % Seg Neutrophils # Seg Neutrophils # Man Lymphocytes # (Manual) Monocytes # (Manual) Eosinophils # (Manual) Basophils # (Manual) PT INR Fibrinogen dRVVT Confirm Interp Factor V Activity POC ABG pH POC ABG pCO2 POC ABG pO2 ABG pO2 ABG HCO3 ABG Base Excess ABG Hemoglobin Oxyhemoglobin Sodium Potassium Chloride Carbon Dioxide 21 L BUN 85 H Creatinine 1.9 H Glucose 131 H POC Glucose 154 H Lactic Acid Calcium Phosphorus Magnesium Direct Bilirubin AST ALT Alkaline Phosphatase Lactate Dehydrogenase Troponin T C-Reactive Protein 19.30 H Total Protein Albumin Prealbumin Triglycerides Cholesterol LDL Cholesterol Direct HDL Cholesterol Urine pH Urine WBC (Auto) Urine Creatinine Urine Total Protein Fluid Total Protein Vancomycin Trough Rheumatoid Factor Complement C4 Miscellaneous Test Crossmatch 12/05/16 12/05/16 12/05/16 11:43 17:46 23:25 WBC RBC Hgb Hct MCV MCH MCHC RDW Plt Count Lymph % (Auto) Simpson % (Auto) Lymph # Simpson # Baso # Seg Neutrophils % Seg Neuts % (Manual) Lymphocytes % (Manual) Monocytes % (Manual) Eosinophils % (Manual) Basophils % (Manual) Nucleated RBC % Seg Neutrophils # Seg Neutrophils # Man Lymphocytes # (Manual) Monocytes # (Manual) Eosinophils # (Manual) Basophils # (Manual) PT INR Fibrinogen dRVVT Confirm Interp Factor V Activity POC ABG pH POC ABG pCO2 POC ABG pO2 ABG pO2 ABG HCO3 ABG Base Excess ABG Hemoglobin Oxyhemoglobin Sodium Potassium Chloride Carbon Dioxide BUN Creatinine Glucose POC Glucose 117 H 113 H 111 H Lactic Acid Calcium Phosphorus Magnesium Direct Bilirubin AST ALT Alkaline Phosphatase Lactate Dehydrogenase Troponin T C-Reactive Protein Total Protein Albumin Prealbumin Triglycerides Cholesterol LDL Cholesterol Direct HDL Cholesterol Urine pH Urine WBC (Auto) Urine Creatinine Urine Total Protein Fluid Total Protein Vancomycin Trough Rheumatoid Factor Complement C4 Miscellaneous Test Crossmatch 12/05/16 12/06/16 12/06/16 Unknown 04:58 06:00 WBC RBC Hgb Hct MCV MCH MCHC RDW Plt Count Lymph % (Auto) Simpson % (Auto) Lymph # Simpson # Baso # Seg Neutrophils % Seg Neuts % (Manual) Lymphocytes % (Manual) Monocytes % (Manual) Eosinophils % (Manual) Basophils % (Manual) Nucleated RBC % Seg Neutrophils # Seg Neutrophils # Man Lymphocytes # (Manual) Monocytes # (Manual) Eosinophils # (Manual) Basophils # (Manual) PT INR Fibrinogen dRVVT Confirm Interp Factor V Activity POC ABG pH POC ABG pCO2 POC ABG pO2 ABG pO2 75.2 L ABG HCO3 ABG Base Excess -3.4 L ABG Hemoglobin 7.4 L Oxyhemoglobin 94.5 L Sodium Potassium Chloride Carbon Dioxide 20 L BUN 99 H Creatinine 2.1 H Glucose 126 H POC Glucose 145 H Lactic Acid Calcium Phosphorus 4.80 H Magnesium Direct Bilirubin AST ALT Alkaline Phosphatase Lactate Dehydrogenase Troponin T C-Reactive Protein Total Protein Albumin Prealbumin Triglycerides Cholesterol LDL Cholesterol Direct HDL Cholesterol Urine pH Urine WBC (Auto) Urine Creatinine Urine Total Protein Fluid Total Protein Vancomycin Trough Rheumatoid Factor Complement C4 Miscellaneous Test Crossmatch 12/06/16 12/06/16 12/06/16 06:46 11:54 17:55 WBC RBC Hgb 8.3 L Hct 26.4 L MCV MCH MCHC RDW Plt Count Lymph % (Auto) Simpson % (Auto) Lymph # Simpson # Baso # Seg Neutrophils % Seg Neuts % (Manual) Lymphocytes % (Manual) Monocytes % (Manual) Eosinophils % (Manual) Basophils % (Manual) Nucleated RBC % Seg Neutrophils # Seg Neutrophils # Man Lymphocytes # (Manual) Monocytes # (Manual) Eosinophils # (Manual) Basophils # (Manual) PT INR Fibrinogen dRVVT Confirm Interp Factor V Activity POC ABG pH POC ABG pCO2 POC ABG pO2 ABG pO2 ABG HCO3 ABG Base Excess ABG Hemoglobin Oxyhemoglobin Sodium Potassium Chloride Carbon Dioxide BUN Creatinine Glucose POC Glucose 126 H 157 H Lactic Acid Calcium Phosphorus Magnesium Direct Bilirubin AST ALT Alkaline Phosphatase Lactate Dehydrogenase Troponin T C-Reactive Protein Total Protein Albumin Prealbumin Triglycerides Cholesterol LDL Cholesterol Direct HDL Cholesterol Urine pH Urine WBC (Auto) Urine Creatinine Urine Total Protein Fluid Total Protein Vancomycin Trough Rheumatoid Factor Complement C4 Miscellaneous Test Crossmatch 12/06/16 12/07/16 12/07/16 23:59 05:34 06:30 WBC RBC Hgb Hct MCV MCH MCHC RDW Plt Count Lymph % (Auto) Simpson % (Auto) Lymph # Simpson # Baso # Seg Neutrophils % Seg Neuts % (Manual) Lymphocytes % (Manual) Monocytes % (Manual) Eosinophils % (Manual) Basophils % (Manual) Nucleated RBC % Seg Neutrophils # Seg Neutrophils # Man Lymphocytes # (Manual) Monocytes # (Manual) Eosinophils # (Manual) Basophils # (Manual) PT INR Fibrinogen dRVVT Confirm Interp Factor V Activity POC ABG pH POC ABG pCO2 POC ABG pO2 ABG pO2 ABG HCO3 ABG Base Excess ABG Hemoglobin Oxyhemoglobin Sodium Potassium Chloride Carbon Dioxide BUN 67 H Creatinine 1.4 H Glucose 126 H POC Glucose 129 H 129 H Lactic Acid Calcium Phosphorus Magnesium Direct Bilirubin AST ALT Alkaline Phosphatase Lactate Dehydrogenase Troponin T C-Reactive Protein Total Protein Albumin Prealbumin Triglycerides Cholesterol LDL Cholesterol Direct HDL Cholesterol Urine pH Urine WBC (Auto) Urine Creatinine Urine Total Protein Fluid Total Protein Vancomycin Trough Rheumatoid Factor Complement C4 Miscellaneous Test Crossmatch 12/07/16 12/07/16 12/07/16 06:30 08:00 09:45 WBC 18.8 H RBC 2.52 L Hgb 6.9 L 6.8 L Hct 21.2 L 21.1 L MCV MCH 27 L MCHC RDW 18.0 H Plt Count Lymph % (Auto) Simpson % (Auto) 9.9 H Lymph # Simpson # 1.9 H Baso # Seg Neutrophils % 71.8 H Seg Neuts % (Manual) Lymphocytes % (Manual) Monocytes % (Manual) Eosinophils % (Manual) Basophils % (Manual) Nucleated RBC % Seg Neutrophils # 13.5 H Seg Neutrophils # Man Lymphocytes # (Manual) Monocytes # (Manual) Eosinophils # (Manual) Basophils # (Manual) PT INR Fibrinogen dRVVT Confirm Interp Factor V Activity POC ABG pH POC ABG pCO2 POC ABG pO2 ABG pO2 ABG HCO3 ABG Base Excess ABG Hemoglobin Oxyhemoglobin Sodium Potassium Chloride Carbon Dioxide BUN Creatinine Glucose POC Glucose Lactic Acid Calcium Phosphorus Magnesium Direct Bilirubin AST ALT Alkaline Phosphatase Lactate Dehydrogenase Troponin T C-Reactive Protein Total Protein Albumin Prealbumin Triglycerides Cholesterol LDL Cholesterol Direct HDL Cholesterol Urine pH Urine WBC (Auto) Urine Creatinine Urine Total Protein Fluid Total Protein Vancomycin Trough Rheumatoid Factor Complement C4 Miscellaneous Test Crossmatch See Detail 12/07/16 12/07/16 12/07/16 11:44 18:19 23:59 WBC RBC Hgb Hct MCV MCH MCHC RDW Plt Count Lymph % (Auto) Simpson % (Auto) Lymph # Simpson # Baso # Seg Neutrophils % Seg Neuts % (Manual) Lymphocytes % (Manual) Monocytes % (Manual) Eosinophils % (Manual) Basophils % (Manual) Nucleated RBC % Seg Neutrophils # Seg Neutrophils # Man Lymphocytes # (Manual) Monocytes # (Manual) Eosinophils # (Manual) Basophils # (Manual) PT INR Fibrinogen dRVVT Confirm Interp Factor V Activity POC ABG pH POC ABG pCO2 POC ABG pO2 ABG pO2 ABG HCO3 ABG Base Excess ABG Hemoglobin Oxyhemoglobin Sodium Potassium Chloride Carbon Dioxide BUN Creatinine Glucose POC Glucose 137 H 138 H 133 H Lactic Acid Calcium Phosphorus Magnesium Direct Bilirubin AST ALT Alkaline Phosphatase Lactate Dehydrogenase Troponin T C-Reactive Protein Total Protein Albumin Prealbumin Triglycerides Cholesterol LDL Cholesterol Direct HDL Cholesterol Urine pH Urine WBC (Auto) Urine Creatinine Urine Total Protein Fluid Total Protein Vancomycin Trough Rheumatoid Factor Complement C4 Miscellaneous Test Crossmatch 12/08/16 12/08/16 12/08/16 05:25 05:30 05:30 WBC 23.8 H RBC 2.88 L Hgb 8.1 L Hct 24.3 L MCV MCH MCHC RDW 16.7 H Plt Count Lymph % (Auto) Simpson % (Auto) Lymph # Simpson # Baso # Seg Neutrophils % Seg Neuts % (Manual) 76.0 H Lymphocytes % (Manual) 9.0 L Monocytes % (Manual) 9.0 H Eosinophils % (Manual) Basophils % (Manual) Nucleated RBC % Seg Neutrophils # Seg Neutrophils # Man 18.1 H Lymphocytes # (Manual) Monocytes # (Manual) 2.1 H Eosinophils # (Manual) Basophils # (Manual) PT INR Fibrinogen dRVVT Confirm Interp Factor V Activity POC ABG pH POC ABG pCO2 POC ABG pO2 ABG pO2 ABG HCO3 ABG Base Excess ABG Hemoglobin Oxyhemoglobin Sodium Potassium Chloride Carbon Dioxide 21 L BUN 76 H Creatinine 1.6 H Glucose 133 H POC Glucose 177 H Lactic Acid Calcium Phosphorus Magnesium Direct Bilirubin AST ALT Alkaline Phosphatase Lactate Dehydrogenase Troponin T C-Reactive Protein Total Protein Albumin Prealbumin Triglycerides Cholesterol LDL Cholesterol Direct HDL Cholesterol Urine pH Urine WBC (Auto) Urine Creatinine Urine Total Protein Fluid Total Protein Vancomycin Trough Rheumatoid Factor Complement C4 Miscellaneous Test Crossmatch 12/08/16 12/08/16 12/09/16 11:45 18:00 00:00 WBC RBC Hgb Hct MCV MCH MCHC RDW Plt Count Lymph % (Auto) Simpson % (Auto) Lymph # Simpson # Baso # Seg Neutrophils % Seg Neuts % (Manual) Lymphocytes % (Manual) Monocytes % (Manual) Eosinophils % (Manual) Basophils % (Manual) Nucleated RBC % Seg Neutrophils # Seg Neutrophils # Man Lymphocytes # (Manual) Monocytes # (Manual) Eosinophils # (Manual) Basophils # (Manual) PT INR Fibrinogen dRVVT Confirm Interp Factor V Activity POC ABG pH POC ABG pCO2 POC ABG pO2 ABG pO2 ABG HCO3 ABG Base Excess ABG Hemoglobin Oxyhemoglobin Sodium Potassium Chloride Carbon Dioxide BUN Creatinine Glucose POC Glucose 163 H 123 H 137 H Lactic Acid Calcium Phosphorus Magnesium Direct Bilirubin AST ALT Alkaline Phosphatase Lactate Dehydrogenase Troponin T C-Reactive Protein Total Protein Albumin Prealbumin Triglycerides Cholesterol LDL Cholesterol Direct HDL Cholesterol Urine pH Urine WBC (Auto) Urine Creatinine Urine Total Protein Fluid Total Protein Vancomycin Trough Rheumatoid Factor Complement C4 Miscellaneous Test Crossmatch 12/09/16 12/09/16 12/09/16 05:34 06:00 06:00 WBC 15.5 H RBC 2.87 L Hgb 8.0 L Hct 24.2 L MCV MCH MCHC RDW 17.2 H Plt Count Lymph % (Auto) Simpson % (Auto) 11.6 H Lymph # Simpson # 1.8 H Baso # Seg Neutrophils % 70.8 H Seg Neuts % (Manual) Lymphocytes % (Manual) Monocytes % (Manual) Eosinophils % (Manual) Basophils % (Manual) Nucleated RBC % Seg Neutrophils # 11.0 H Seg Neutrophils # Man Lymphocytes # (Manual) Monocytes # (Manual) Eosinophils # (Manual) Basophils # (Manual) PT INR Fibrinogen dRVVT Confirm Interp Factor V Activity POC ABG pH POC ABG pCO2 POC ABG pO2 ABG pO2 ABG HCO3 ABG Base Excess ABG Hemoglobin Oxyhemoglobin Sodium Potassium Chloride Carbon Dioxide BUN 51 H Creatinine Glucose 117 H POC Glucose 136 H Lactic Acid Calcium Phosphorus Magnesium Direct Bilirubin AST ALT Alkaline Phosphatase Lactate Dehydrogenase Troponin T C-Reactive Protein Total Protein Albumin Prealbumin Triglycerides Cholesterol LDL Cholesterol Direct HDL Cholesterol Urine pH Urine WBC (Auto) Urine Creatinine Urine Total Protein Fluid Total Protein Vancomycin Trough Rheumatoid Factor Complement C4 Miscellaneous Test Crossmatch 12/09/16 12/09/16 12/09/16 12:29 17:52 23:10 WBC RBC Hgb Hct MCV MCH MCHC RDW Plt Count Lymph % (Auto) Simpson % (Auto) Lymph # Simpson # Baso # Seg Neutrophils % Seg Neuts % (Manual) Lymphocytes % (Manual) Monocytes % (Manual) Eosinophils % (Manual) Basophils % (Manual) Nucleated RBC % Seg Neutrophils # Seg Neutrophils # Man Lymphocytes # (Manual) Monocytes # (Manual) Eosinophils # (Manual) Basophils # (Manual) PT INR Fibrinogen dRVVT Confirm Interp Factor V Activity POC ABG pH POC ABG pCO2 POC ABG pO2 ABG pO2 ABG HCO3 ABG Base Excess ABG Hemoglobin Oxyhemoglobin Sodium Potassium Chloride Carbon Dioxide BUN Creatinine Glucose POC Glucose 139 H 140 H 129 H Lactic Acid Calcium Phosphorus Magnesium Direct Bilirubin AST ALT Alkaline Phosphatase Lactate Dehydrogenase Troponin T C-Reactive Protein Total Protein Albumin Prealbumin Triglycerides Cholesterol LDL Cholesterol Direct HDL Cholesterol Urine pH Urine WBC (Auto) Urine Creatinine Urine Total Protein Fluid Total Protein Vancomycin Trough Rheumatoid Factor Complement C4 Miscellaneous Test Crossmatch 12/10/16 12/10/16 12/10/16 05:00 05:00 06:54 WBC 15.7 H RBC 2.87 L Hgb 8.2 L Hct 24.4 L MCV MCH MCHC RDW 17.2 H Plt Count Lymph % (Auto) Simpson % (Auto) 8.3 H Lymph # Simpson # 1.3 H Baso # Seg Neutrophils % 72.8 H Seg Neuts % (Manual) Lymphocytes % (Manual) Monocytes % (Manual) Eosinophils % (Manual) Basophils % (Manual) Nucleated RBC % Seg Neutrophils # 11.4 H Seg Neutrophils # Man Lymphocytes # (Manual) Monocytes # (Manual) Eosinophils # (Manual) Basophils # (Manual) PT INR Fibrinogen dRVVT Confirm Interp Factor V Activity POC ABG pH POC ABG pCO2 POC ABG pO2 ABG pO2 ABG HCO3 ABG Base Excess ABG Hemoglobin Oxyhemoglobin Sodium Potassium Chloride Carbon Dioxide BUN 64 H Creatinine 1.4 H Glucose 134 H POC Glucose 154 H Lactic Acid Calcium Phosphorus Magnesium Direct Bilirubin AST ALT Alkaline Phosphatase Lactate Dehydrogenase Troponin T C-Reactive Protein Total Protein Albumin Prealbumin Triglycerides Cholesterol LDL Cholesterol Direct HDL Cholesterol Urine pH Urine WBC (Auto) Urine Creatinine Urine Total Protein Fluid Total Protein Vancomycin Trough Rheumatoid Factor Complement C4 Miscellaneous Test Crossmatch 12/10/16 12/10/16 12/10/16 11:58 17:29 23:52 WBC RBC Hgb Hct MCV MCH MCHC RDW Plt Count Lymph % (Auto) Simpson % (Auto) Lymph # Simpson # Baso # Seg Neutrophils % Seg Neuts % (Manual) Lymphocytes % (Manual) Monocytes % (Manual) Eosinophils % (Manual) Basophils % (Manual) Nucleated RBC % Seg Neutrophils # Seg Neutrophils # Man Lymphocytes # (Manual) Monocytes # (Manual) Eosinophils # (Manual) Basophils # (Manual) PT INR Fibrinogen dRVVT Confirm Interp Factor V Activity POC ABG pH POC ABG pCO2 POC ABG pO2 ABG pO2 ABG HCO3 ABG Base Excess ABG Hemoglobin Oxyhemoglobin Sodium Potassium Chloride Carbon Dioxide BUN Creatinine Glucose POC Glucose 144 H 163 H 125 H Lactic Acid Calcium Phosphorus Magnesium Direct Bilirubin AST ALT Alkaline Phosphatase Lactate Dehydrogenase Troponin T C-Reactive Protein Total Protein Albumin Prealbumin Triglycerides Cholesterol LDL Cholesterol Direct HDL Cholesterol Urine pH Urine WBC (Auto) Urine Creatinine Urine Total Protein Fluid Total Protein Vancomycin Trough Rheumatoid Factor Complement C4 Miscellaneous Test Crossmatch 12/11/16 12/11/16 12/11/16 05:38 06:30 06:30 WBC 14.4 H RBC 2.76 L Hgb 7.7 L Hct 23.4 L MCV MCH MCHC RDW 17.2 H Plt Count Lymph % (Auto) Simpson % (Auto) 8.8 H Lymph # Simpson # 1.3 H Baso # Seg Neutrophils % 72.5 H Seg Neuts % (Manual) Lymphocytes % (Manual) Monocytes % (Manual) Eosinophils % (Manual) Basophils % (Manual) Nucleated RBC % Seg Neutrophils # 10.5 H Seg Neutrophils # Man Lymphocytes # (Manual) Monocytes # (Manual) Eosinophils # (Manual) Basophils # (Manual) PT INR Fibrinogen dRVVT Confirm Interp Factor V Activity POC ABG pH POC ABG pCO2 POC ABG pO2 ABG pO2 ABG HCO3 ABG Base Excess ABG Hemoglobin Oxyhemoglobin Sodium Potassium Chloride Carbon Dioxide BUN 43 H Creatinine Glucose 124 H POC Glucose 141 H Lactic Acid Calcium 8.3 L Phosphorus Magnesium 1.60 L Direct Bilirubin AST ALT Alkaline Phosphatase Lactate Dehydrogenase Troponin T C-Reactive Protein Total Protein Albumin Prealbumin Triglycerides Cholesterol LDL Cholesterol Direct HDL Cholesterol Urine pH Urine WBC (Auto) Urine Creatinine Urine Total Protein Fluid Total Protein Vancomycin Trough Rheumatoid Factor Complement C4 Miscellaneous Test Crossmatch 12/11/16 12/11/16 12/11/16 11:15 17:59 23:48 WBC RBC Hgb Hct MCV MCH MCHC RDW Plt Count Lymph % (Auto) Simpson % (Auto) Lymph # Simpson # Baso # Seg Neutrophils % Seg Neuts % (Manual) Lymphocytes % (Manual) Monocytes % (Manual) Eosinophils % (Manual) Basophils % (Manual) Nucleated RBC % Seg Neutrophils # Seg Neutrophils # Man Lymphocytes # (Manual) Monocytes # (Manual) Eosinophils # (Manual) Basophils # (Manual) PT INR Fibrinogen dRVVT Confirm Interp Factor V Activity POC ABG pH POC ABG pCO2 POC ABG pO2 ABG pO2 ABG HCO3 ABG Base Excess ABG Hemoglobin Oxyhemoglobin Sodium Potassium Chloride Carbon Dioxide BUN Creatinine Glucose POC Glucose 188 H 106 H 119 H Lactic Acid Calcium Phosphorus Magnesium Direct Bilirubin AST ALT Alkaline Phosphatase Lactate Dehydrogenase Troponin T C-Reactive Protein Total Protein Albumin Prealbumin Triglycerides Cholesterol LDL Cholesterol Direct HDL Cholesterol Urine pH Urine WBC (Auto) Urine Creatinine Urine Total Protein Fluid Total Protein Vancomycin Trough Rheumatoid Factor Complement C4 Miscellaneous Test Crossmatch 12/12/16 12/12/16 12/12/16 05:00 06:01 12:20 WBC 16.7 H RBC 2.87 L Hgb 8.0 L Hct 24.2 L MCV MCH MCHC RDW 17.6 H Plt Count Lymph % (Auto) Simpson % (Auto) Lymph # Simpson # 1.2 H Baso # Seg Neutrophils % 75.3 H Seg Neuts % (Manual) Lymphocytes % (Manual) Monocytes % (Manual) Eosinophils % (Manual) Basophils % (Manual) Nucleated RBC % Seg Neutrophils # 12.6 H Seg Neutrophils # Man Lymphocytes # (Manual) Monocytes # (Manual) Eosinophils # (Manual) Basophils # (Manual) PT INR Fibrinogen dRVVT Confirm Interp Factor V Activity POC ABG pH POC ABG pCO2 POC ABG pO2 ABG pO2 ABG HCO3 ABG Base Excess ABG Hemoglobin Oxyhemoglobin Sodium Potassium Chloride Carbon Dioxide BUN Creatinine Glucose POC Glucose 134 H 149 H Lactic Acid Calcium Phosphorus Magnesium Direct Bilirubin AST ALT Alkaline Phosphatase Lactate Dehydrogenase Troponin T C-Reactive Protein Total Protein Albumin Prealbumin Triglycerides Cholesterol LDL Cholesterol Direct HDL Cholesterol Urine pH Urine WBC (Auto) Urine Creatinine Urine Total Protein Fluid Total Protein Vancomycin Trough Rheumatoid Factor Complement C4 Miscellaneous Test Crossmatch 12/12/16 12/12/16 12/12/16 17:38 23:01 Unknown WBC RBC Hgb Hct MCV MCH MCHC RDW Plt Count Lymph % (Auto) Simpson % (Auto) Lymph # Simpson # Baso # Seg Neutrophils % Seg Neuts % (Manual) Lymphocytes % (Manual) Monocytes % (Manual) Eosinophils % (Manual) Basophils % (Manual) Nucleated RBC % Seg Neutrophils # Seg Neutrophils # Man Lymphocytes # (Manual) Monocytes # (Manual) Eosinophils # (Manual) Basophils # (Manual) PT INR Fibrinogen dRVVT Confirm Interp Factor V Activity POC ABG pH POC ABG pCO2 POC ABG pO2 ABG pO2 ABG HCO3 ABG Base Excess ABG Hemoglobin Oxyhemoglobin Sodium Potassium Chloride Carbon Dioxide BUN 60 H Creatinine 1.3 H Glucose 126 H POC Glucose 127 H 144 H Lactic Acid Calcium Phosphorus Magnesium Direct Bilirubin AST ALT Alkaline Phosphatase Lactate Dehydrogenase Troponin T C-Reactive Protein Total Protein Albumin Prealbumin Triglycerides Cholesterol LDL Cholesterol Direct HDL Cholesterol Urine pH Urine WBC (Auto) Urine Creatinine Urine Total Protein Fluid Total Protein Vancomycin Trough Rheumatoid Factor Complement C4 Miscellaneous Test Crossmatch 12/13/16 12/13/16 12/13/16 04:00 04:00 05:19 WBC 18.7 H RBC 2.89 L Hgb 8.3 L Hct 24.6 L MCV MCH MCHC RDW 17.5 H Plt Count Lymph % (Auto) Simpson % (Auto) Lymph # Simpson # 1.3 H Baso # Seg Neutrophils % 71.5 H Seg Neuts % (Manual) Lymphocytes % (Manual) Monocytes % (Manual) Eosinophils % (Manual) Basophils % (Manual) Nucleated RBC % Seg Neutrophils # 13.4 H Seg Neutrophils # Man Lymphocytes # (Manual) Monocytes # (Manual) Eosinophils # (Manual) Basophils # (Manual) PT INR Fibrinogen dRVVT Confirm Interp Factor V Activity POC ABG pH POC ABG pCO2 POC ABG pO2 ABG pO2 ABG HCO3 ABG Base Excess ABG Hemoglobin Oxyhemoglobin Sodium Potassium Chloride Carbon Dioxide BUN 73 H Creatinine 1.5 H Glucose 141 H POC Glucose 171 H Lactic Acid Calcium Phosphorus Magnesium Direct Bilirubin AST ALT Alkaline Phosphatase Lactate Dehydrogenase Troponin T C-Reactive Protein Total Protein Albumin Prealbumin Triglycerides Cholesterol LDL Cholesterol Direct HDL Cholesterol Urine pH Urine WBC (Auto) Urine Creatinine Urine Total Protein Fluid Total Protein Vancomycin Trough Rheumatoid Factor Complement C4 Miscellaneous Test Crossmatch 12/13/16 12/13/16 12/14/16 12:28 16:48 00:01 WBC RBC Hgb Hct MCV MCH MCHC RDW Plt Count Lymph % (Auto) Simpson % (Auto) Lymph # Simpson # Baso # Seg Neutrophils % Seg Neuts % (Manual) Lymphocytes % (Manual) Monocytes % (Manual) Eosinophils % (Manual) Basophils % (Manual) Nucleated RBC % Seg Neutrophils # Seg Neutrophils # Man Lymphocytes # (Manual) Monocytes # (Manual) Eosinophils # (Manual) Basophils # (Manual) PT INR Fibrinogen dRVVT Confirm Interp Factor V Activity POC ABG pH POC ABG pCO2 POC ABG pO2 ABG pO2 ABG HCO3 ABG Base Excess ABG Hemoglobin Oxyhemoglobin Sodium Potassium Chloride Carbon Dioxide BUN Creatinine Glucose POC Glucose 206 H 173 H 139 H Lactic Acid Calcium Phosphorus Magnesium Direct Bilirubin AST ALT Alkaline Phosphatase Lactate Dehydrogenase Troponin T C-Reactive Protein Total Protein Albumin Prealbumin Triglycerides Cholesterol LDL Cholesterol Direct HDL Cholesterol Urine pH Urine WBC (Auto) Urine Creatinine Urine Total Protein Fluid Total Protein Vancomycin Trough Rheumatoid Factor Complement C4 Miscellaneous Test Crossmatch 12/14/16 12/14/16 12/14/16 05:16 06:10 11:17 WBC RBC Hgb Hct MCV MCH MCHC RDW Plt Count Lymph % (Auto) Simpson % (Auto) Lymph # Simpson # Baso # Seg Neutrophils % Seg Neuts % (Manual) Lymphocytes % (Manual) Monocytes % (Manual) Eosinophils % (Manual) Basophils % (Manual) Nucleated RBC % Seg Neutrophils # Seg Neutrophils # Man Lymphocytes # (Manual) Monocytes # (Manual) Eosinophils # (Manual) Basophils # (Manual) PT INR Fibrinogen dRVVT Confirm Interp Factor V Activity POC ABG pH POC ABG pCO2 POC ABG pO2 ABG pO2 ABG HCO3 ABG Base Excess ABG Hemoglobin Oxyhemoglobin Sodium Potassium Chloride Carbon Dioxide BUN 57 H Creatinine 1.4 H Glucose 135 H POC Glucose 158 H 137 H Lactic Acid Calcium Phosphorus Magnesium Direct Bilirubin AST ALT Alkaline Phosphatase Lactate Dehydrogenase Troponin T C-Reactive Protein Total Protein Albumin Prealbumin Triglycerides Cholesterol LDL Cholesterol Direct HDL Cholesterol Urine pH Urine WBC (Auto) Urine Creatinine Urine Total Protein Fluid Total Protein Vancomycin Trough Rheumatoid Factor Complement C4 Miscellaneous Test Crossmatch 12/14/16 12/14/16 12/15/16 17:52 23:27 04:00 WBC RBC Hgb Hct MCV MCH MCHC RDW Plt Count Lymph % (Auto) Simpson % (Auto) Lymph # Simpson # Baso # Seg Neutrophils % Seg Neuts % (Manual) Lymphocytes % (Manual) Monocytes % (Manual) Eosinophils % (Manual) Basophils % (Manual) Nucleated RBC % Seg Neutrophils # Seg Neutrophils # Man Lymphocytes # (Manual) Monocytes # (Manual) Eosinophils # (Manual) Basophils # (Manual) PT INR Fibrinogen dRVVT Confirm Interp Factor V Activity POC ABG pH POC ABG pCO2 POC ABG pO2 ABG pO2 ABG HCO3 ABG Base Excess ABG Hemoglobin Oxyhemoglobin Sodium Potassium Chloride 97.9 L Carbon Dioxide BUN 75 H Creatinine 1.6 H Glucose 122 H POC Glucose 149 H 163 H Lactic Acid Calcium Phosphorus 5.20 H Magnesium Direct Bilirubin AST ALT Alkaline Phosphatase Lactate Dehydrogenase Troponin T C-Reactive Protein Total Protein Albumin Prealbumin Triglycerides Cholesterol LDL Cholesterol Direct HDL Cholesterol Urine pH Urine WBC (Auto) Urine Creatinine Urine Total Protein Fluid Total Protein Vancomycin Trough Rheumatoid Factor Complement C4 Miscellaneous Test Crossmatch 12/15/16 12/15/16 12/15/16 05:50 11:24 17:01 WBC RBC Hgb Hct MCV MCH MCHC RDW Plt Count Lymph % (Auto) Simpson % (Auto) Lymph # Simpson # Baso # Seg Neutrophils % Seg Neuts % (Manual) Lymphocytes % (Manual) Monocytes % (Manual) Eosinophils % (Manual) Basophils % (Manual) Nucleated RBC % Seg Neutrophils # Seg Neutrophils # Man Lymphocytes # (Manual) Monocytes # (Manual) Eosinophils # (Manual) Basophils # (Manual) PT INR Fibrinogen dRVVT Confirm Interp Factor V Activity POC ABG pH POC ABG pCO2 POC ABG pO2 ABG pO2 ABG HCO3 ABG Base Excess ABG Hemoglobin Oxyhemoglobin Sodium Potassium Chloride Carbon Dioxide BUN Creatinine Glucose POC Glucose 150 H 146 H 167 H Lactic Acid Calcium Phosphorus Magnesium Direct Bilirubin AST ALT Alkaline Phosphatase Lactate Dehydrogenase Troponin T C-Reactive Protein Total Protein Albumin Prealbumin Triglycerides Cholesterol LDL Cholesterol Direct HDL Cholesterol Urine pH Urine WBC (Auto) Urine Creatinine Urine Total Protein Fluid Total Protein Vancomycin Trough Rheumatoid Factor Complement C4 Miscellaneous Test Crossmatch 12/15/16 12/16/16 12/16/16 23:34 05:25 11:24 WBC RBC Hgb Hct MCV MCH MCHC RDW Plt Count Lymph % (Auto) Simpson % (Auto) Lymph # Simpson # Baso # Seg Neutrophils % Seg Neuts % (Manual) Lymphocytes % (Manual) Monocytes % (Manual) Eosinophils % (Manual) Basophils % (Manual) Nucleated RBC % Seg Neutrophils # Seg Neutrophils # Man Lymphocytes # (Manual) Monocytes # (Manual) Eosinophils # (Manual) Basophils # (Manual) PT INR Fibrinogen dRVVT Confirm Interp Factor V Activity POC ABG pH POC ABG pCO2 POC ABG pO2 ABG pO2 ABG HCO3 ABG Base Excess ABG Hemoglobin Oxyhemoglobin Sodium Potassium Chloride Carbon Dioxide BUN Creatinine Glucose POC Glucose 127 H 139 H 165 H Lactic Acid Calcium Phosphorus Magnesium Direct Bilirubin AST ALT Alkaline Phosphatase Lactate Dehydrogenase Troponin T C-Reactive Protein Total Protein Albumin Prealbumin Triglycerides Cholesterol LDL Cholesterol Direct HDL Cholesterol Urine pH Urine WBC (Auto) Urine Creatinine Urine Total Protein Fluid Total Protein Vancomycin Trough Rheumatoid Factor Complement C4 Miscellaneous Test Crossmatch 12/16/16 12/16/16 12/16/16 15:30 16:25 17:31 WBC 17.8 H RBC 2.38 L Hgb 6.4 L Hct 20.3 L MCV MCH 27 L MCHC RDW 17.4 H Plt Count Lymph % (Auto) Simpson % (Auto) Lymph # Simpson # Baso # Seg Neutrophils % Seg Neuts % (Manual) Lymphocytes % (Manual) Monocytes % (Manual) 10.0 H Eosinophils % (Manual) Basophils % (Manual) Nucleated RBC % Seg Neutrophils # Seg Neutrophils # Man 8.5 H Lymphocytes # (Manual) Monocytes # (Manual) 1.8 H Eosinophils # (Manual) Basophils # (Manual) PT INR Fibrinogen dRVVT Confirm Interp Factor V Activity POC ABG pH POC ABG pCO2 POC ABG pO2 ABG pO2 ABG HCO3 ABG Base Excess ABG Hemoglobin Oxyhemoglobin Sodium Potassium Chloride Carbon Dioxide BUN Creatinine Glucose POC Glucose 176 H Lactic Acid Calcium Phosphorus Magnesium Direct Bilirubin AST ALT Alkaline Phosphatase Lactate Dehydrogenase Troponin T C-Reactive Protein Total Protein Albumin Prealbumin Triglycerides Cholesterol LDL Cholesterol Direct HDL Cholesterol Urine pH Urine WBC (Auto) Urine Creatinine Urine Total Protein Fluid Total Protein Vancomycin Trough Rheumatoid Factor Complement C4 Miscellaneous Test Crossmatch See Detail 12/17/16 12/17/16 12/17/16 00:14 04:00 05:00 WBC 20.0 H RBC 2.99 L Hgb 8.5 L Hct 25.7 L MCV MCH MCHC RDW 17.2 H Plt Count Lymph % (Auto) Simpson % (Auto) Lymph # Simpson # Baso # Seg Neutrophils % Seg Neuts % (Manual) Lymphocytes % (Manual) Monocytes % (Manual) Eosinophils % (Manual) Basophils % (Manual) Nucleated RBC % Seg Neutrophils # Seg Neutrophils # Man Lymphocytes # (Manual) Monocytes # (Manual) Eosinophils # (Manual) Basophils # (Manual) PT INR Fibrinogen dRVVT Confirm Interp Factor V Activity POC ABG pH POC ABG pCO2 POC ABG pO2 ABG pO2 ABG HCO3 ABG Base Excess ABG Hemoglobin Oxyhemoglobin Sodium Potassium Chloride 97.7 L Carbon Dioxide BUN 73 H Creatinine 1.7 H Glucose 136 H POC Glucose 148 H Lactic Acid Calcium Phosphorus 2.20 L Magnesium 2.70 H Direct Bilirubin AST ALT Alkaline Phosphatase Lactate Dehydrogenase Troponin T C-Reactive Protein Total Protein Albumin Prealbumin Triglycerides Cholesterol LDL Cholesterol Direct HDL Cholesterol Urine pH Urine WBC (Auto) Urine Creatinine Urine Total Protein Fluid Total Protein Vancomycin Trough Rheumatoid Factor Complement C4 Miscellaneous Test Crossmatch 12/17/16 12/17/16 12/17/16 05:39 12:50 16:32 WBC RBC Hgb Hct MCV MCH MCHC RDW Plt Count Lymph % (Auto) Simpson % (Auto) Lymph # Simpson # Baso # Seg Neutrophils % Seg Neuts % (Manual) Lymphocytes % (Manual) Monocytes % (Manual) Eosinophils % (Manual) Basophils % (Manual) Nucleated RBC % Seg Neutrophils # Seg Neutrophils # Man Lymphocytes # (Manual) Monocytes # (Manual) Eosinophils # (Manual) Basophils # (Manual) PT INR Fibrinogen dRVVT Confirm Interp Factor V Activity POC ABG pH POC ABG pCO2 POC ABG pO2 ABG pO2 ABG HCO3 ABG Base Excess ABG Hemoglobin Oxyhemoglobin Sodium Potassium Chloride Carbon Dioxide BUN Creatinine Glucose POC Glucose 162 H 146 H 169 H Lactic Acid Calcium Phosphorus Magnesium Direct Bilirubin AST ALT Alkaline Phosphatase Lactate Dehydrogenase Troponin T C-Reactive Protein Total Protein Albumin Prealbumin Triglycerides Cholesterol LDL Cholesterol Direct HDL Cholesterol Urine pH Urine WBC (Auto) Urine Creatinine Urine Total Protein Fluid Total Protein Vancomycin Trough Rheumatoid Factor Complement C4 Miscellaneous Test Crossmatch 12/17/16 12/18/16 12/18/16 23:57 05:00 05:32 WBC RBC Hgb Hct MCV MCH MCHC RDW Plt Count Lymph % (Auto) Simpson % (Auto) Lymph # Simpson # Baso # Seg Neutrophils % Seg Neuts % (Manual) Lymphocytes % (Manual) Monocytes % (Manual) Eosinophils % (Manual) Basophils % (Manual) Nucleated RBC % Seg Neutrophils # Seg Neutrophils # Man Lymphocytes # (Manual) Monocytes # (Manual) Eosinophils # (Manual) Basophils # (Manual) PT INR Fibrinogen dRVVT Confirm Interp Factor V Activity POC ABG pH POC ABG pCO2 POC ABG pO2 ABG pO2 ABG HCO3 ABG Base Excess ABG Hemoglobin Oxyhemoglobin Sodium Potassium Chloride 97.0 L Carbon Dioxide BUN 63 H Creatinine 1.4 H Glucose 174 H POC Glucose 145 H 201 H Lactic Acid Calcium Phosphorus 1.70 L D Magnesium Direct Bilirubin AST ALT Alkaline Phosphatase 257 H Lactate Dehydrogenase Troponin T C-Reactive Protein Total Protein 5.9 L Albumin 1.8 L Prealbumin Triglycerides Cholesterol LDL Cholesterol Direct HDL Cholesterol Urine pH Urine WBC (Auto) Urine Creatinine Urine Total Protein Fluid Total Protein Vancomycin Trough Rheumatoid Factor Complement C4 Miscellaneous Test Crossmatch 12/18/16 12/18/16 12/18/16 11:43 16:52 23:52 WBC RBC Hgb Hct MCV MCH MCHC RDW Plt Count Lymph % (Auto) Simpson % (Auto) Lymph # Simpson # Baso # Seg Neutrophils % Seg Neuts % (Manual) Lymphocytes % (Manual) Monocytes % (Manual) Eosinophils % (Manual) Basophils % (Manual) Nucleated RBC % Seg Neutrophils # Seg Neutrophils # Man Lymphocytes # (Manual) Monocytes # (Manual) Eosinophils # (Manual) Basophils # (Manual) PT INR Fibrinogen dRVVT Confirm Interp Factor V Activity POC ABG pH POC ABG pCO2 POC ABG pO2 ABG pO2 ABG HCO3 ABG Base Excess ABG Hemoglobin Oxyhemoglobin Sodium Potassium Chloride Carbon Dioxide BUN Creatinine Glucose POC Glucose 177 H 110 H 162 H Lactic Acid Calcium Phosphorus Magnesium Direct Bilirubin AST ALT Alkaline Phosphatase Lactate Dehydrogenase Troponin T C-Reactive Protein Total Protein Albumin Prealbumin Triglycerides Cholesterol LDL Cholesterol Direct HDL Cholesterol Urine pH Urine WBC (Auto) Urine Creatinine Urine Total Protein Fluid Total Protein Vancomycin Trough Rheumatoid Factor Complement C4 Miscellaneous Test Crossmatch 12/19/16 12/19/16 12/19/16 05:02 05:24 09:30 WBC 20.1 H RBC 2.73 L Hgb 7.6 L Hct 23.6 L MCV MCH MCHC RDW 17.6 H Plt Count Lymph % (Auto) Simpson % (Auto) Lymph # Simpson # Baso # Seg Neutrophils % Seg Neuts % (Manual) Lymphocytes % (Manual) 13.0 L Monocytes % (Manual) Eosinophils % (Manual) Basophils % (Manual) Nucleated RBC % 1.0 H Seg Neutrophils # Seg Neutrophils # Man 12.9 H Lymphocytes # (Manual) Monocytes # (Manual) 1.4 H Eosinophils # (Manual) Basophils # (Manual) 0.2 H PT INR Fibrinogen dRVVT Confirm Interp Factor V Activity POC ABG pH POC ABG pCO2 POC ABG pO2 ABG pO2 ABG HCO3 ABG Base Excess ABG Hemoglobin Oxyhemoglobin Sodium Potassium Chloride 97.8 L Carbon Dioxide BUN 84 H Creatinine 1.6 H Glucose 133 H POC Glucose 134 H Lactic Acid Calcium Phosphorus Magnesium Direct Bilirubin AST ALT Alkaline Phosphatase Lactate Dehydrogenase Troponin T C-Reactive Protein Total Protein Albumin Prealbumin Triglycerides Cholesterol LDL Cholesterol Direct HDL Cholesterol Urine pH Urine WBC (Auto) Urine Creatinine Urine Total Protein Fluid Total Protein Vancomycin Trough Rheumatoid Factor Complement C4 Miscellaneous Test Crossmatch 12/19/16 12/19/16 12/19/16 09:36 11:12 18:29 WBC RBC Hgb Hct MCV MCH MCHC RDW Plt Count Lymph % (Auto) Simpson % (Auto) Lymph # Simpson # Baso # Seg Neutrophils % Seg Neuts % (Manual) Lymphocytes % (Manual) Monocytes % (Manual) Eosinophils % (Manual) Basophils % (Manual) Nucleated RBC % Seg Neutrophils # Seg Neutrophils # Man Lymphocytes # (Manual) Monocytes # (Manual) Eosinophils # (Manual) Basophils # (Manual) PT INR Fibrinogen dRVVT Confirm Interp Factor V Activity POC ABG pH 7.503 H POC ABG pCO2 30.1 L POC ABG pO2 ABG pO2 ABG HCO3 ABG Base Excess ABG Hemoglobin Oxyhemoglobin Sodium Potassium Chloride Carbon Dioxide BUN Creatinine Glucose POC Glucose 138 H 156 H Lactic Acid Calcium Phosphorus Magnesium Direct Bilirubin AST ALT Alkaline Phosphatase Lactate Dehydrogenase Troponin T C-Reactive Protein Total Protein Albumin Prealbumin Triglycerides Cholesterol LDL Cholesterol Direct HDL Cholesterol Urine pH Urine WBC (Auto) Urine Creatinine Urine Total Protein Fluid Total Protein Vancomycin Trough Rheumatoid Factor Complement C4 Miscellaneous Test Crossmatch 12/20/16 12/20/16 12/20/16 00:03 06:17 07:07 WBC RBC Hgb Hct MCV MCH MCHC RDW Plt Count Lymph % (Auto) Simpson % (Auto) Lymph # Simpson # Baso # Seg Neutrophils % Seg Neuts % (Manual) Lymphocytes % (Manual) Monocytes % (Manual) Eosinophils % (Manual) Basophils % (Manual) Nucleated RBC % Seg Neutrophils # Seg Neutrophils # Man Lymphocytes # (Manual) Monocytes # (Manual) Eosinophils # (Manual) Basophils # (Manual) PT INR Fibrinogen dRVVT Confirm Interp Factor V Activity POC ABG pH POC ABG pCO2 POC ABG pO2 ABG pO2 ABG HCO3 ABG Base Excess ABG Hemoglobin Oxyhemoglobin Sodium Potassium Chloride 97.1 L Carbon Dioxide 20 L BUN 97 H Creatinine 1.8 H Glucose 153 H POC Glucose 152 H 175 H Lactic Acid Calcium Phosphorus Magnesium Direct Bilirubin AST ALT Alkaline Phosphatase Lactate Dehydrogenase Troponin T C-Reactive Protein Total Protein Albumin Prealbumin Triglycerides Cholesterol LDL Cholesterol Direct HDL Cholesterol Urine pH Urine WBC (Auto) Urine Creatinine Urine Total Protein Fluid Total Protein Vancomycin Trough Rheumatoid Factor Complement C4 Miscellaneous Test Crossmatch 12/20/16 12/20/16 12/20/16 12:00 17:42 23:53 WBC RBC Hgb Hct MCV MCH MCHC RDW Plt Count Lymph % (Auto) Simpson % (Auto) Lymph # Simpson # Baso # Seg Neutrophils % Seg Neuts % (Manual) Lymphocytes % (Manual) Monocytes % (Manual) Eosinophils % (Manual) Basophils % (Manual) Nucleated RBC % Seg Neutrophils # Seg Neutrophils # Man Lymphocytes # (Manual) Monocytes # (Manual) Eosinophils # (Manual) Basophils # (Manual) PT INR Fibrinogen dRVVT Confirm Interp Factor V Activity POC ABG pH POC ABG pCO2 POC ABG pO2 ABG pO2 ABG HCO3 ABG Base Excess ABG Hemoglobin Oxyhemoglobin Sodium Potassium Chloride Carbon Dioxide BUN Creatinine Glucose POC Glucose 141 H 156 H 132 H Lactic Acid Calcium Phosphorus Magnesium Direct Bilirubin AST ALT Alkaline Phosphatase Lactate Dehydrogenase Troponin T C-Reactive Protein Total Protein Albumin Prealbumin Triglycerides Cholesterol LDL Cholesterol Direct HDL Cholesterol Urine pH Urine WBC (Auto) Urine Creatinine Urine Total Protein Fluid Total Protein Vancomycin Trough Rheumatoid Factor Complement C4 Miscellaneous Test Crossmatch 12/21/16 12/21/16 12/21/16 05:49 08:50 12:19 WBC RBC Hgb Hct MCV MCH MCHC RDW Plt Count Lymph % (Auto) Simpson % (Auto) Lymph # Simpson # Baso # Seg Neutrophils % Seg Neuts % (Manual) Lymphocytes % (Manual) Monocytes % (Manual) Eosinophils % (Manual) Basophils % (Manual) Nucleated RBC % Seg Neutrophils # Seg Neutrophils # Man Lymphocytes # (Manual) Monocytes # (Manual) Eosinophils # (Manual) Basophils # (Manual) PT INR Fibrinogen dRVVT Confirm Interp Factor V Activity POC ABG pH POC ABG pCO2 POC ABG pO2 ABG pO2 ABG HCO3 ABG Base Excess ABG Hemoglobin Oxyhemoglobin Sodium Potassium 5.2 H D Chloride Carbon Dioxide BUN 63 H Creatinine Glucose 122 H POC Glucose 132 H 136 H Lactic Acid Calcium 8.3 L Phosphorus Magnesium Direct Bilirubin AST ALT Alkaline Phosphatase Lactate Dehydrogenase Troponin T C-Reactive Protein Total Protein Albumin Prealbumin Triglycerides Cholesterol LDL Cholesterol Direct HDL Cholesterol Urine pH Urine WBC (Auto) Urine Creatinine Urine Total Protein Fluid Total Protein Vancomycin Trough Rheumatoid Factor Complement C4 Miscellaneous Test Crossmatch 12/21/16 12/21/16 12/22/16 17:22 23:58 05:49 WBC RBC Hgb Hct MCV MCH MCHC RDW Plt Count Lymph % (Auto) Simpson % (Auto) Lymph # Simpson # Baso # Seg Neutrophils % Seg Neuts % (Manual) Lymphocytes % (Manual) Monocytes % (Manual) Eosinophils % (Manual) Basophils % (Manual) Nucleated RBC % Seg Neutrophils # Seg Neutrophils # Man Lymphocytes # (Manual) Monocytes # (Manual) Eosinophils # (Manual) Basophils # (Manual) PT INR Fibrinogen dRVVT Confirm Interp Factor V Activity POC ABG pH POC ABG pCO2 POC ABG pO2 ABG pO2 ABG HCO3 ABG Base Excess ABG Hemoglobin Oxyhemoglobin Sodium Potassium Chloride Carbon Dioxide BUN Creatinine Glucose POC Glucose 135 H 149 H 140 H Lactic Acid Calcium Phosphorus Magnesium Direct Bilirubin AST ALT Alkaline Phosphatase Lactate Dehydrogenase Troponin T C-Reactive Protein Total Protein Albumin Prealbumin Triglycerides Cholesterol LDL Cholesterol Direct HDL Cholesterol Urine pH Urine WBC (Auto) Urine Creatinine Urine Total Protein Fluid Total Protein Vancomycin Trough Rheumatoid Factor Complement C4 Miscellaneous Test Crossmatch 12/22/16 12/22/16 12/22/16 06:10 11:17 17:31 WBC RBC Hgb Hct MCV MCH MCHC RDW Plt Count Lymph % (Auto) Simpson % (Auto) Lymph # Simpson # Baso # Seg Neutrophils % Seg Neuts % (Manual) Lymphocytes % (Manual) Monocytes % (Manual) Eosinophils % (Manual) Basophils % (Manual) Nucleated RBC % Seg Neutrophils # Seg Neutrophils # Man Lymphocytes # (Manual) Monocytes # (Manual) Eosinophils # (Manual) Basophils # (Manual) PT INR Fibrinogen dRVVT Confirm Interp Factor V Activity POC ABG pH POC ABG pCO2 POC ABG pO2 ABG pO2 ABG HCO3 ABG Base Excess ABG Hemoglobin Oxyhemoglobin Sodium Potassium Chloride Carbon Dioxide BUN 76 H Creatinine 1.5 H Glucose 241 H POC Glucose 193 H 148 H Lactic Acid Calcium Phosphorus Magnesium Direct Bilirubin AST ALT Alkaline Phosphatase Lactate Dehydrogenase Troponin T C-Reactive Protein Total Protein Albumin Prealbumin Triglycerides Cholesterol LDL Cholesterol Direct HDL Cholesterol Urine pH Urine WBC (Auto) Urine Creatinine Urine Total Protein Fluid Total Protein Vancomycin Trough Rheumatoid Factor Complement C4 Miscellaneous Test Crossmatch 12/22/16 12/23/16 12/23/16 23:58 05:00 05:26 WBC RBC Hgb Hct MCV MCH MCHC RDW Plt Count Lymph % (Auto) Simpson % (Auto) Lymph # Simpson # Baso # Seg Neutrophils % Seg Neuts % (Manual) Lymphocytes % (Manual) Monocytes % (Manual) Eosinophils % (Manual) Basophils % (Manual) Nucleated RBC % Seg Neutrophils # Seg Neutrophils # Man Lymphocytes # (Manual) Monocytes # (Manual) Eosinophils # (Manual) Basophils # (Manual) PT INR Fibrinogen dRVVT Confirm Interp Factor V Activity POC ABG pH POC ABG pCO2 POC ABG pO2 ABG pO2 ABG HCO3 ABG Base Excess ABG Hemoglobin Oxyhemoglobin Sodium Potassium Chloride Carbon Dioxide BUN 49 H Creatinine Glucose 143 H POC Glucose 165 H 154 H Lactic Acid Calcium 8.2 L Phosphorus Magnesium 1.60 L Direct Bilirubin AST ALT Alkaline Phosphatase Lactate Dehydrogenase Troponin T C-Reactive Protein Total Protein Albumin Prealbumin Triglycerides Cholesterol LDL Cholesterol Direct HDL Cholesterol Urine pH Urine WBC (Auto) Urine Creatinine Urine Total Protein Fluid Total Protein Vancomycin Trough Rheumatoid Factor Complement C4 Miscellaneous Test Crossmatch 12/23/16 12/23/16 12/24/16 12:35 17:01 00:01 WBC RBC Hgb Hct MCV MCH MCHC RDW Plt Count Lymph % (Auto) Simpson % (Auto) Lymph # Simpson # Baso # Seg Neutrophils % Seg Neuts % (Manual) Lymphocytes % (Manual) Monocytes % (Manual) Eosinophils % (Manual) Basophils % (Manual) Nucleated RBC % Seg Neutrophils # Seg Neutrophils # Man Lymphocytes # (Manual) Monocytes # (Manual) Eosinophils # (Manual) Basophils # (Manual) PT INR Fibrinogen dRVVT Confirm Interp Factor V Activity POC ABG pH POC ABG pCO2 POC ABG pO2 ABG pO2 ABG HCO3 ABG Base Excess ABG Hemoglobin Oxyhemoglobin Sodium Potassium Chloride Carbon Dioxide BUN Creatinine Glucose POC Glucose 164 H 149 H 135 H Lactic Acid Calcium Phosphorus Magnesium Direct Bilirubin AST ALT Alkaline Phosphatase Lactate Dehydrogenase Troponin T C-Reactive Protein Total Protein Albumin Prealbumin Triglycerides Cholesterol LDL Cholesterol Direct HDL Cholesterol Urine pH Urine WBC (Auto) Urine Creatinine Urine Total Protein Fluid Total Protein Vancomycin Trough Rheumatoid Factor Complement C4 Miscellaneous Test Crossmatch 12/24/16 12/24/16 12/24/16 05:41 07:01 11:38 WBC RBC Hgb Hct MCV MCH MCHC RDW Plt Count Lymph % (Auto) Simpson % (Auto) Lymph # Simpson # Baso # Seg Neutrophils % Seg Neuts % (Manual) Lymphocytes % (Manual) Monocytes % (Manual) Eosinophils % (Manual) Basophils % (Manual) Nucleated RBC % Seg Neutrophils # Seg Neutrophils # Man Lymphocytes # (Manual) Monocytes # (Manual) Eosinophils # (Manual) Basophils # (Manual) PT INR Fibrinogen dRVVT Confirm Interp Factor V Activity POC ABG pH POC ABG pCO2 POC ABG pO2 ABG pO2 ABG HCO3 ABG Base Excess ABG Hemoglobin Oxyhemoglobin Sodium Potassium Chloride Carbon Dioxide BUN 72 H Creatinine 1.3 H Glucose 130 H POC Glucose 132 H 156 H Lactic Acid Calcium 8.2 L Phosphorus Magnesium Direct Bilirubin AST ALT Alkaline Phosphatase Lactate Dehydrogenase Troponin T C-Reactive Protein Total Protein Albumin Prealbumin Triglycerides Cholesterol LDL Cholesterol Direct HDL Cholesterol Urine pH Urine WBC (Auto) Urine Creatinine Urine Total Protein Fluid Total Protein Vancomycin Trough Rheumatoid Factor Complement C4 Miscellaneous Test Crossmatch 12/24/16 12/25/16 12/25/16 17:53 00:23 05:45 WBC RBC Hgb Hct MCV MCH MCHC RDW Plt Count Lymph % (Auto) Simpson % (Auto) Lymph # Simpson # Baso # Seg Neutrophils % Seg Neuts % (Manual) Lymphocytes % (Manual) Monocytes % (Manual) Eosinophils % (Manual) Basophils % (Manual) Nucleated RBC % Seg Neutrophils # Seg Neutrophils # Man Lymphocytes # (Manual) Monocytes # (Manual) Eosinophils # (Manual) Basophils # (Manual) PT INR Fibrinogen dRVVT Confirm Interp Factor V Activity POC ABG pH POC ABG pCO2 POC ABG pO2 ABG pO2 ABG HCO3 ABG Base Excess ABG Hemoglobin Oxyhemoglobin Sodium 146 H Potassium Chloride Carbon Dioxide BUN 51 H Creatinine Glucose 109 H POC Glucose 169 H 117 H Lactic Acid Calcium Phosphorus Magnesium Direct Bilirubin AST ALT Alkaline Phosphatase Lactate Dehydrogenase Troponin T C-Reactive Protein Total Protein Albumin Prealbumin Triglycerides Cholesterol LDL Cholesterol Direct HDL Cholesterol Urine pH Urine WBC (Auto) Urine Creatinine Urine Total Protein Fluid Total Protein Vancomycin Trough Rheumatoid Factor Complement C4 Miscellaneous Test Crossmatch 12/25/16 12/25/16 12/25/16 06:43 11:29 17:14 WBC RBC Hgb Hct MCV MCH MCHC RDW Plt Count Lymph % (Auto) Simpson % (Auto) Lymph # Simpson # Baso # Seg Neutrophils % Seg Neuts % (Manual) Lymphocytes % (Manual) Monocytes % (Manual) Eosinophils % (Manual) Basophils % (Manual) Nucleated RBC % Seg Neutrophils # Seg Neutrophils # Man Lymphocytes # (Manual) Monocytes # (Manual) Eosinophils # (Manual) Basophils # (Manual) PT INR Fibrinogen dRVVT Confirm Interp Factor V Activity POC ABG pH POC ABG pCO2 POC ABG pO2 ABG pO2 ABG HCO3 ABG Base Excess ABG Hemoglobin Oxyhemoglobin Sodium Potassium Chloride Carbon Dioxide BUN Creatinine Glucose POC Glucose 117 H 128 H 120 H Lactic Acid Calcium Phosphorus Magnesium Direct Bilirubin AST ALT Alkaline Phosphatase Lactate Dehydrogenase Troponin T C-Reactive Protein Total Protein Albumin Prealbumin Triglycerides Cholesterol LDL Cholesterol Direct HDL Cholesterol Urine pH Urine WBC (Auto) Urine Creatinine Urine Total Protein Fluid Total Protein Vancomycin Trough Rheumatoid Factor Complement C4 Miscellaneous Test Crossmatch 12/25/16 12/26/16 12/26/16 23:54 05:40 05:50 WBC 16.2 H RBC 2.32 L Hgb 6.2 L Hct 20.1 L MCV MCH 27 L MCHC RDW 18.6 H Plt Count Lymph % (Auto) Simpson % (Auto) Lymph # Simpson # Baso # Seg Neutrophils % Seg Neuts % (Manual) Lymphocytes % (Manual) Monocytes % (Manual) Eosinophils % (Manual) Basophils % (Manual) Nucleated RBC % Seg Neutrophils # Seg Neutrophils # Man Lymphocytes # (Manual) Monocytes # (Manual) Eosinophils # (Manual) Basophils # (Manual) PT INR Fibrinogen dRVVT Confirm Interp Factor V Activity POC ABG pH POC ABG pCO2 POC ABG pO2 ABG pO2 ABG HCO3 ABG Base Excess ABG Hemoglobin Oxyhemoglobin Sodium Potassium Chloride Carbon Dioxide BUN Creatinine Glucose POC Glucose 126 H 132 H Lactic Acid Calcium Phosphorus Magnesium Direct Bilirubin AST ALT Alkaline Phosphatase Lactate Dehydrogenase Troponin T C-Reactive Protein Total Protein Albumin Prealbumin Triglycerides Cholesterol LDL Cholesterol Direct HDL Cholesterol Urine pH Urine WBC (Auto) Urine Creatinine Urine Total Protein Fluid Total Protein Vancomycin Trough Rheumatoid Factor Complement C4 Miscellaneous Test Crossmatch 12/26/16 12/26/16 12/26/16 05:50 12:17 12:33 WBC RBC Hgb Hct MCV MCH MCHC RDW Plt Count Lymph % (Auto) Simpson % (Auto) Lymph # Simpson # Baso # Seg Neutrophils % Seg Neuts % (Manual) Lymphocytes % (Manual) Monocytes % (Manual) Eosinophils % (Manual) Basophils % (Manual) Nucleated RBC % Seg Neutrophils # Seg Neutrophils # Man Lymphocytes # (Manual) Monocytes # (Manual) Eosinophils # (Manual) Basophils # (Manual) PT INR Fibrinogen dRVVT Confirm Interp Factor V Activity POC ABG pH POC ABG pCO2 POC ABG pO2 ABG pO2 ABG HCO3 ABG Base Excess ABG Hemoglobin Oxyhemoglobin Sodium Potassium Chloride Carbon Dioxide BUN 73 H Creatinine 1.3 H Glucose 113 H POC Glucose 117 H Lactic Acid Calcium Phosphorus Magnesium Direct Bilirubin AST ALT Alkaline Phosphatase Lactate Dehydrogenase Troponin T C-Reactive Protein Total Protein Albumin Prealbumin Triglycerides Cholesterol LDL Cholesterol Direct HDL Cholesterol Urine pH Urine WBC (Auto) Urine Creatinine Urine Total Protein Fluid Total Protein Vancomycin Trough Rheumatoid Factor Complement C4 Miscellaneous Test Crossmatch See Detail 12/26/16 12/26/16 12/27/16 20:00 23:21 05:00 WBC RBC Hgb 8.4 L Hct 26.3 L D MCV MCH MCHC RDW Plt Count Lymph % (Auto) Simpson % (Auto) Lymph # Simpson # Baso # Seg Neutrophils % Seg Neuts % (Manual) Lymphocytes % (Manual) Monocytes % (Manual) Eosinophils % (Manual) Basophils % (Manual) Nucleated RBC % Seg Neutrophils # Seg Neutrophils # Man Lymphocytes # (Manual) Monocytes # (Manual) Eosinophils # (Manual) Basophils # (Manual) PT INR Fibrinogen dRVVT Confirm Interp Factor V Activity POC ABG pH POC ABG pCO2 POC ABG pO2 ABG pO2 ABG HCO3 ABG Base Excess ABG Hemoglobin Oxyhemoglobin Sodium Potassium Chloride Carbon Dioxide BUN 85 H Creatinine 1.6 H Glucose 118 H POC Glucose 124 H Lactic Acid Calcium Phosphorus 4.80 H Magnesium Direct Bilirubin AST ALT Alkaline Phosphatase Lactate Dehydrogenase Troponin T C-Reactive Protein Total Protein Albumin Prealbumin Triglycerides Cholesterol LDL Cholesterol Direct HDL Cholesterol Urine pH Urine WBC (Auto) Urine Creatinine Urine Total Protein Fluid Total Protein Vancomycin Trough Rheumatoid Factor Complement C4 Miscellaneous Test Crossmatch 12/27/16 12/27/16 12/27/16 05:00 05:35 12:24 WBC RBC Hgb 7.6 L Hct 22.8 L MCV MCH MCHC RDW Plt Count Lymph % (Auto) Simpson % (Auto) Lymph # Simpson # Baso # Seg Neutrophils % Seg Neuts % (Manual) Lymphocytes % (Manual) Monocytes % (Manual) Eosinophils % (Manual) Basophils % (Manual) Nucleated RBC % Seg Neutrophils # Seg Neutrophils # Man Lymphocytes # (Manual) Monocytes # (Manual) Eosinophils # (Manual) Basophils # (Manual) PT INR Fibrinogen dRVVT Confirm Interp Factor V Activity POC ABG pH POC ABG pCO2 POC ABG pO2 ABG pO2 ABG HCO3 ABG Base Excess ABG Hemoglobin Oxyhemoglobin Sodium Potassium Chloride Carbon Dioxide BUN Creatinine Glucose POC Glucose 115 H 131 H Lactic Acid Calcium Phosphorus Magnesium Direct Bilirubin AST ALT Alkaline Phosphatase Lactate Dehydrogenase Troponin T C-Reactive Protein Total Protein Albumin Prealbumin Triglycerides Cholesterol LDL Cholesterol Direct HDL Cholesterol Urine pH Urine WBC (Auto) Urine Creatinine Urine Total Protein Fluid Total Protein Vancomycin Trough Rheumatoid Factor Complement C4 Miscellaneous Test Crossmatch 12/27/16 12/28/16 12/28/16 17:16 00:18 04:00 WBC RBC Hgb Hct MCV MCH MCHC RDW Plt Count Lymph % (Auto) Simpson % (Auto) Lymph # Simpson # Baso # Seg Neutrophils % Seg Neuts % (Manual) Lymphocytes % (Manual) Monocytes % (Manual) Eosinophils % (Manual) Basophils % (Manual) Nucleated RBC % Seg Neutrophils # Seg Neutrophils # Man Lymphocytes # (Manual) Monocytes # (Manual) Eosinophils # (Manual) Basophils # (Manual) PT INR Fibrinogen dRVVT Confirm Interp Factor V Activity POC ABG pH POC ABG pCO2 POC ABG pO2 ABG pO2 ABG HCO3 ABG Base Excess ABG Hemoglobin Oxyhemoglobin Sodium Potassium 3.5 L Chloride Carbon Dioxide BUN 57 H Creatinine Glucose 118 H POC Glucose 136 H 120 H Lactic Acid Calcium 8.3 L Phosphorus Magnesium Direct Bilirubin AST ALT Alkaline Phosphatase Lactate Dehydrogenase Troponin T C-Reactive Protein Total Protein Albumin Prealbumin Triglycerides Cholesterol LDL Cholesterol Direct HDL Cholesterol Urine pH Urine WBC (Auto) Urine Creatinine Urine Total Protein Fluid Total Protein Vancomycin Trough Rheumatoid Factor Complement C4 Miscellaneous Test Crossmatch 12/28/16 12/28/16 12/28/16 04:00 05:11 08:30 WBC 17.0 H RBC 2.58 L Hgb 7.1 L Hct 22.0 L MCV MCH MCHC RDW 17.6 H Plt Count Lymph % (Auto) 12.2 L Simpson % (Auto) Lymph # Simpson # 1.1 H Baso # Seg Neutrophils % 80.5 H Seg Neuts % (Manual) Lymphocytes % (Manual) Monocytes % (Manual) Eosinophils % (Manual) Basophils % (Manual) Nucleated RBC % Seg Neutrophils # 13.7 H Seg Neutrophils # Man Lymphocytes # (Manual) Monocytes # (Manual) Eosinophils # (Manual) Basophils # (Manual) PT 16.1 H INR 1.23 H Fibrinogen dRVVT Confirm Interp Factor V Activity POC ABG pH POC ABG pCO2 POC ABG pO2 ABG pO2 ABG HCO3 ABG Base Excess ABG Hemoglobin Oxyhemoglobin Sodium Potassium Chloride Carbon Dioxide BUN Creatinine Glucose POC Glucose 122 H Lactic Acid Calcium Phosphorus Magnesium Direct Bilirubin AST ALT Alkaline Phosphatase Lactate Dehydrogenase Troponin T C-Reactive Protein Total Protein Albumin Prealbumin Triglycerides Cholesterol LDL Cholesterol Direct HDL Cholesterol Urine pH Urine WBC (Auto) Urine Creatinine Urine Total Protein Fluid Total Protein Vancomycin Trough Rheumatoid Factor Complement C4 Miscellaneous Test Crossmatch 12/28/16 12/28/16 12/28/16 12:27 16:32 23:46 WBC RBC Hgb Hct MCV MCH MCHC RDW Plt Count Lymph % (Auto) Simpson % (Auto) Lymph # Simpson # Baso # Seg Neutrophils % Seg Neuts % (Manual) Lymphocytes % (Manual) Monocytes % (Manual) Eosinophils % (Manual) Basophils % (Manual) Nucleated RBC % Seg Neutrophils # Seg Neutrophils # Man Lymphocytes # (Manual) Monocytes # (Manual) Eosinophils # (Manual) Basophils # (Manual) PT INR Fibrinogen dRVVT Confirm Interp Factor V Activity POC ABG pH POC ABG pCO2 POC ABG pO2 ABG pO2 ABG HCO3 ABG Base Excess ABG Hemoglobin Oxyhemoglobin Sodium Potassium Chloride Carbon Dioxide BUN Creatinine Glucose POC Glucose 127 H 117 H 108 H Lactic Acid Calcium Phosphorus Magnesium Direct Bilirubin AST ALT Alkaline Phosphatase Lactate Dehydrogenase Troponin T C-Reactive Protein Total Protein Albumin Prealbumin Triglycerides Cholesterol LDL Cholesterol Direct HDL Cholesterol Urine pH Urine WBC (Auto) Urine Creatinine Urine Total Protein Fluid Total Protein Vancomycin Trough Rheumatoid Factor Complement C4 Miscellaneous Test Crossmatch 12/29/16 12/29/16 12/29/16 05:15 05:15 05:32 WBC RBC Hgb Hct MCV MCH MCHC RDW Plt Count Lymph % (Auto) Simpson % (Auto) Lymph # Simpson # Baso # Seg Neutrophils % Seg Neuts % (Manual) Lymphocytes % (Manual) Monocytes % (Manual) Eosinophils % (Manual) Basophils % (Manual) Nucleated RBC % Seg Neutrophils # Seg Neutrophils # Man Lymphocytes # (Manual) Monocytes # (Manual) Eosinophils # (Manual) Basophils # (Manual) PT INR Fibrinogen dRVVT Confirm Interp Factor V Activity POC ABG pH POC ABG pCO2 POC ABG pO2 ABG pO2 ABG HCO3 ABG Base Excess ABG Hemoglobin Oxyhemoglobin Sodium Potassium Chloride Carbon Dioxide BUN 74 H Creatinine 1.6 H Glucose 111 H POC Glucose 123 H Lactic Acid Calcium Phosphorus Magnesium Direct Bilirubin AST ALT Alkaline Phosphatase Lactate Dehydrogenase Troponin T C-Reactive Protein Total Protein Albumin Prealbumin 0.110 L Triglycerides Cholesterol LDL Cholesterol Direct HDL Cholesterol Urine pH Urine WBC (Auto) Urine Creatinine Urine Total Protein Fluid Total Protein Vancomycin Trough Rheumatoid Factor Complement C4 Miscellaneous Test Crossmatch 12/29/16 12/29/16 12/29/16 11:43 13:45 14:00 WBC 13.8 H RBC 2.26 L Hgb 6.3 L Hct 20.4 L MCV MCH MCHC RDW 18.3 H Plt Count Lymph % (Auto) Simpson % (Auto) Lymph # Simpson # 0.9 H Baso # Seg Neutrophils % 78.6 H Seg Neuts % (Manual) Lymphocytes % (Manual) Monocytes % (Manual) Eosinophils % (Manual) Basophils % (Manual) Nucleated RBC % Seg Neutrophils # 10.8 H Seg Neutrophils # Man Lymphocytes # (Manual) Monocytes # (Manual) Eosinophils # (Manual) Basophils # (Manual) PT INR Fibrinogen dRVVT Confirm Interp Factor V Activity POC ABG pH POC ABG pCO2 POC ABG pO2 ABG pO2 ABG HCO3 ABG Base Excess ABG Hemoglobin Oxyhemoglobin Sodium Potassium Chloride Carbon Dioxide BUN Creatinine Glucose POC Glucose 133 H Lactic Acid Calcium Phosphorus Magnesium Direct Bilirubin AST ALT Alkaline Phosphatase Lactate Dehydrogenase Troponin T C-Reactive Protein Total Protein Albumin Prealbumin Triglycerides Cholesterol LDL Cholesterol Direct HDL Cholesterol Urine pH Urine WBC (Auto) Urine Creatinine Urine Total Protein Fluid Total Protein Vancomycin Trough Rheumatoid Factor Complement C4 Miscellaneous Test Crossmatch See Detail 12/29/16 12/29/16 12/29/16 17:03 23:15 23:22 WBC RBC Hgb 7.3 L Hct 22.3 L MCV MCH MCHC RDW Plt Count Lymph % (Auto) Simpson % (Auto) Lymph # Simpson # Baso # Seg Neutrophils % Seg Neuts % (Manual) Lymphocytes % (Manual) Monocytes % (Manual) Eosinophils % (Manual) Basophils % (Manual) Nucleated RBC % Seg Neutrophils # Seg Neutrophils # Man Lymphocytes # (Manual) Monocytes # (Manual) Eosinophils # (Manual) Basophils # (Manual) PT INR Fibrinogen dRVVT Confirm Interp Factor V Activity POC ABG pH POC ABG pCO2 POC ABG pO2 ABG pO2 ABG HCO3 ABG Base Excess ABG Hemoglobin Oxyhemoglobin Sodium Potassium Chloride Carbon Dioxide BUN Creatinine Glucose POC Glucose 139 H 120 H Lactic Acid Calcium Phosphorus Magnesium Direct Bilirubin AST ALT Alkaline Phosphatase Lactate Dehydrogenase Troponin T C-Reactive Protein Total Protein Albumin Prealbumin Triglycerides Cholesterol LDL Cholesterol Direct HDL Cholesterol Urine pH Urine WBC (Auto) Urine Creatinine Urine Total Protein Fluid Total Protein Vancomycin Trough Rheumatoid Factor Complement C4 Miscellaneous Test Crossmatch 12/30/16 12/30/16 12/30/16 04:20 04:20 05:43 WBC 15.6 H RBC 2.81 L Hgb 8.0 L Hct 24.0 L MCV MCH MCHC RDW 16.9 H Plt Count Lymph % (Auto) Simpson % (Auto) Lymph # Simpson # 1.0 H Baso # Seg Neutrophils % 76.2 H Seg Neuts % (Manual) Lymphocytes % (Manual) Monocytes % (Manual) Eosinophils % (Manual) Basophils % (Manual) Nucleated RBC % Seg Neutrophils # 11.9 H Seg Neutrophils # Man Lymphocytes # (Manual) Monocytes # (Manual) Eosinophils # (Manual) Basophils # (Manual) PT INR Fibrinogen dRVVT Confirm Interp Factor V Activity POC ABG pH POC ABG pCO2 POC ABG pO2 ABG pO2 ABG HCO3 ABG Base Excess ABG Hemoglobin Oxyhemoglobin Sodium Potassium Chloride Carbon Dioxide BUN 87 H Creatinine 1.8 H Glucose 119 H POC Glucose 115 H Lactic Acid Calcium Phosphorus Magnesium Direct Bilirubin AST ALT Alkaline Phosphatase Lactate Dehydrogenase Troponin T C-Reactive Protein Total Protein Albumin Prealbumin Triglycerides Cholesterol LDL Cholesterol Direct HDL Cholesterol Urine pH Urine WBC (Auto) Urine Creatinine Urine Total Protein Fluid Total Protein Vancomycin Trough Rheumatoid Factor Complement C4 Miscellaneous Test Crossmatch 12/30/16 12/30/16 12/31/16 17:27 23:21 04:00 WBC RBC Hgb Hct MCV MCH MCHC RDW Plt Count Lymph % (Auto) Simpson % (Auto) Lymph # Simpson # Baso # Seg Neutrophils % Seg Neuts % (Manual) Lymphocytes % (Manual) Monocytes % (Manual) Eosinophils % (Manual) Basophils % (Manual) Nucleated RBC % Seg Neutrophils # Seg Neutrophils # Man Lymphocytes # (Manual) Monocytes # (Manual) Eosinophils # (Manual) Basophils # (Manual) PT INR Fibrinogen dRVVT Confirm Interp Factor V Activity POC ABG pH POC ABG pCO2 POC ABG pO2 ABG pO2 ABG HCO3 ABG Base Excess ABG Hemoglobin Oxyhemoglobin Sodium Potassium Chloride Carbon Dioxide BUN 59 H Creatinine Glucose 298 H POC Glucose 144 H 125 H Lactic Acid Calcium Phosphorus Magnesium Direct Bilirubin AST ALT Alkaline Phosphatase Lactate Dehydrogenase Troponin T C-Reactive Protein Total Protein Albumin Prealbumin Triglycerides Cholesterol LDL Cholesterol Direct HDL Cholesterol Urine pH Urine WBC (Auto) Urine Creatinine Urine Total Protein Fluid Total Protein Vancomycin Trough Rheumatoid Factor Complement C4 Miscellaneous Test Crossmatch 12/31/16 12/31/16 12/31/16 05:11 12:18 18:17 WBC RBC Hgb Hct MCV MCH MCHC RDW Plt Count Lymph % (Auto) Simpson % (Auto) Lymph # Simpson # Baso # Seg Neutrophils % Seg Neuts % (Manual) Lymphocytes % (Manual) Monocytes % (Manual) Eosinophils % (Manual) Basophils % (Manual) Nucleated RBC % Seg Neutrophils # Seg Neutrophils # Man Lymphocytes # (Manual) Monocytes # (Manual) Eosinophils # (Manual) Basophils # (Manual) PT INR Fibrinogen dRVVT Confirm Interp Factor V Activity POC ABG pH POC ABG pCO2 POC ABG pO2 ABG pO2 ABG HCO3 ABG Base Excess ABG Hemoglobin Oxyhemoglobin Sodium Potassium Chloride Carbon Dioxide BUN Creatinine Glucose POC Glucose 167 H 125 H 133 H Lactic Acid Calcium Phosphorus Magnesium Direct Bilirubin AST ALT Alkaline Phosphatase Lactate Dehydrogenase Troponin T C-Reactive Protein Total Protein Albumin Prealbumin Triglycerides Cholesterol LDL Cholesterol Direct HDL Cholesterol Urine pH Urine WBC (Auto) Urine Creatinine Urine Total Protein Fluid Total Protein Vancomycin Trough Rheumatoid Factor Complement C4 Miscellaneous Test Crossmatch 12/31/16 01/01/17 01/01/17 23:55 05:00 05:12 WBC RBC Hgb Hct MCV MCH MCHC RDW Plt Count Lymph % (Auto) Simpson % (Auto) Lymph # Simpson # Baso # Seg Neutrophils % Seg Neuts % (Manual) Lymphocytes % (Manual) Monocytes % (Manual) Eosinophils % (Manual) Basophils % (Manual) Nucleated RBC % Seg Neutrophils # Seg Neutrophils # Man Lymphocytes # (Manual) Monocytes # (Manual) Eosinophils # (Manual) Basophils # (Manual) PT INR Fibrinogen dRVVT Confirm Interp Factor V Activity POC ABG pH POC ABG pCO2 POC ABG pO2 ABG pO2 ABG HCO3 ABG Base Excess ABG Hemoglobin Oxyhemoglobin Sodium Potassium Chloride Carbon Dioxide BUN 76 H Creatinine 1.5 H Glucose 109 H POC Glucose 129 H 129 H Lactic Acid Calcium Phosphorus Magnesium Direct Bilirubin AST ALT Alkaline Phosphatase 536 H Lactate Dehydrogenase Troponin T C-Reactive Protein Total Protein Albumin 1.5 L Prealbumin Triglycerides Cholesterol LDL Cholesterol Direct HDL Cholesterol Urine pH Urine WBC (Auto) Urine Creatinine Urine Total Protein Fluid Total Protein Vancomycin Trough Rheumatoid Factor Complement C4 Miscellaneous Test Crossmatch 01/01/17 01/01/17 01/01/17 12:25 17:01 23:32 WBC RBC Hgb Hct MCV MCH MCHC RDW Plt Count Lymph % (Auto) Simpson % (Auto) Lymph # Simpson # Baso # Seg Neutrophils % Seg Neuts % (Manual) Lymphocytes % (Manual) Monocytes % (Manual) Eosinophils % (Manual) Basophils % (Manual) Nucleated RBC % Seg Neutrophils # Seg Neutrophils # Man Lymphocytes # (Manual) Monocytes # (Manual) Eosinophils # (Manual) Basophils # (Manual) PT INR Fibrinogen dRVVT Confirm Interp Factor V Activity POC ABG pH POC ABG pCO2 POC ABG pO2 ABG pO2 ABG HCO3 ABG Base Excess ABG Hemoglobin Oxyhemoglobin Sodium Potassium Chloride Carbon Dioxide BUN Creatinine Glucose POC Glucose 140 H 142 H 112 H Lactic Acid Calcium Phosphorus Magnesium Direct Bilirubin AST ALT Alkaline Phosphatase Lactate Dehydrogenase Troponin T C-Reactive Protein Total Protein Albumin Prealbumin Triglycerides Cholesterol LDL Cholesterol Direct HDL Cholesterol Urine pH Urine WBC (Auto) Urine Creatinine Urine Total Protein Fluid Total Protein Vancomycin Trough Rheumatoid Factor Complement C4 Miscellaneous Test Crossmatch 01/02/17 01/02/17 01/02/17 04:56 06:00 11:37 WBC RBC Hgb Hct MCV MCH MCHC RDW Plt Count Lymph % (Auto) Simpson % (Auto) Lymph # Simpson # Baso # Seg Neutrophils % Seg Neuts % (Manual) Lymphocytes % (Manual) Monocytes % (Manual) Eosinophils % (Manual) Basophils % (Manual) Nucleated RBC % Seg Neutrophils # Seg Neutrophils # Man Lymphocytes # (Manual) Monocytes # (Manual) Eosinophils # (Manual) Basophils # (Manual) PT INR Fibrinogen dRVVT Confirm Interp Factor V Activity POC ABG pH POC ABG pCO2 POC ABG pO2 ABG pO2 ABG HCO3 ABG Base Excess ABG Hemoglobin Oxyhemoglobin Sodium Potassium Chloride Carbon Dioxide BUN 88 H Creatinine 1.7 H Glucose 113 H POC Glucose 136 H 200 H Lactic Acid Calcium Phosphorus Magnesium Direct Bilirubin AST ALT Alkaline Phosphatase Lactate Dehydrogenase Troponin T C-Reactive Protein Total Protein Albumin Prealbumin Triglycerides Cholesterol LDL Cholesterol Direct HDL Cholesterol Urine pH Urine WBC (Auto) Urine Creatinine Urine Total Protein Fluid Total Protein Vancomycin Trough Rheumatoid Factor Complement C4 Miscellaneous Test Crossmatch 01/02/17 01/02/17 01/03/17 17:42 22:52 04:54 WBC RBC Hgb Hct MCV MCH MCHC RDW Plt Count Lymph % (Auto) Simpson % (Auto) Lymph # Simpson # Baso # Seg Neutrophils % Seg Neuts % (Manual) Lymphocytes % (Manual) Monocytes % (Manual) Eosinophils % (Manual) Basophils % (Manual) Nucleated RBC % Seg Neutrophils # Seg Neutrophils # Man Lymphocytes # (Manual) Monocytes # (Manual) Eosinophils # (Manual) Basophils # (Manual) PT INR Fibrinogen dRVVT Confirm Interp Factor V Activity POC ABG pH POC ABG pCO2 POC ABG pO2 ABG pO2 ABG HCO3 ABG Base Excess ABG Hemoglobin Oxyhemoglobin Sodium Potassium Chloride Carbon Dioxide BUN Creatinine Glucose POC Glucose 112 H 133 H 111 H Lactic Acid Calcium Phosphorus Magnesium Direct Bilirubin AST ALT Alkaline Phosphatase Lactate Dehydrogenase Troponin T C-Reactive Protein Total Protein Albumin Prealbumin Triglycerides Cholesterol LDL Cholesterol Direct HDL Cholesterol Urine pH Urine WBC (Auto) Urine Creatinine Urine Total Protein Fluid Total Protein Vancomycin Trough Rheumatoid Factor Complement C4 Miscellaneous Test Crossmatch 01/03/17 01/03/17 01/03/17 05:00 05:00 14:02 WBC 11.2 H RBC 2.56 L Hgb 7.2 L Hct 22.3 L MCV MCH MCHC RDW 17.3 H Plt Count Lymph % (Auto) Simpson % (Auto) 10.0 H Lymph # Simpson # 1.1 H Baso # Seg Neutrophils % 70.5 H Seg Neuts % (Manual) Lymphocytes % (Manual) Monocytes % (Manual) Eosinophils % (Manual) Basophils % (Manual) Nucleated RBC % Seg Neutrophils # 7.9 H Seg Neutrophils # Man Lymphocytes # (Manual) Monocytes # (Manual) Eosinophils # (Manual) Basophils # (Manual) PT INR Fibrinogen dRVVT Confirm Interp Factor V Activity POC ABG pH POC ABG pCO2 POC ABG pO2 ABG pO2 ABG HCO3 ABG Base Excess ABG Hemoglobin Oxyhemoglobin Sodium Potassium Chloride Carbon Dioxide BUN 60 H Creatinine 1.3 H Glucose 110 H POC Glucose 119 H Lactic Acid Calcium Phosphorus Magnesium Direct Bilirubin AST ALT Alkaline Phosphatase Lactate Dehydrogenase Troponin T C-Reactive Protein Total Protein Albumin Prealbumin Triglycerides Cholesterol LDL Cholesterol Direct HDL Cholesterol Urine pH Urine WBC (Auto) Urine Creatinine Urine Total Protein Fluid Total Protein Vancomycin Trough Rheumatoid Factor Complement C4 Miscellaneous Test Crossmatch 01/03/17 01/03/17 01/04/17 18:13 23:40 05:57 WBC RBC Hgb Hct MCV MCH MCHC RDW Plt Count Lymph % (Auto) Simpson % (Auto) Lymph # Simpson # Baso # Seg Neutrophils % Seg Neuts % (Manual) Lymphocytes % (Manual) Monocytes % (Manual) Eosinophils % (Manual) Basophils % (Manual) Nucleated RBC % Seg Neutrophils # Seg Neutrophils # Man Lymphocytes # (Manual) Monocytes # (Manual) Eosinophils # (Manual) Basophils # (Manual) PT INR Fibrinogen dRVVT Confirm Interp Factor V Activity POC ABG pH POC ABG pCO2 POC ABG pO2 ABG pO2 ABG HCO3 ABG Base Excess ABG Hemoglobin Oxyhemoglobin Sodium Potassium Chloride Carbon Dioxide BUN Creatinine Glucose POC Glucose 107 H 129 H 111 H Lactic Acid Calcium Phosphorus Magnesium Direct Bilirubin AST ALT Alkaline Phosphatase Lactate Dehydrogenase Troponin T C-Reactive Protein Total Protein Albumin Prealbumin Triglycerides Cholesterol LDL Cholesterol Direct HDL Cholesterol Urine pH Urine WBC (Auto) Urine Creatinine Urine Total Protein Fluid Total Protein Vancomycin Trough Rheumatoid Factor Complement C4 Miscellaneous Test Crossmatch 01/04/17 01/04/17 01/04/17 12:46 15:27 17:11 WBC RBC Hgb Hct MCV MCH MCHC RDW Plt Count Lymph % (Auto) Simpson % (Auto) Lymph # Simpson # Baso # Seg Neutrophils % Seg Neuts % (Manual) Lymphocytes % (Manual) Monocytes % (Manual) Eosinophils % (Manual) Basophils % (Manual) Nucleated RBC % Seg Neutrophils # Seg Neutrophils # Man Lymphocytes # (Manual) Monocytes # (Manual) Eosinophils # (Manual) Basophils # (Manual) PT INR Fibrinogen dRVVT Confirm Interp Factor V Activity POC ABG pH POC ABG pCO2 POC ABG pO2 ABG pO2 ABG HCO3 ABG Base Excess ABG Hemoglobin Oxyhemoglobin Sodium Potassium Chloride Carbon Dioxide BUN 43 H Creatinine Glucose 124 H POC Glucose 159 H 125 H Lactic Acid Calcium 8.0 L Phosphorus 2.10 L Magnesium Direct Bilirubin AST ALT Alkaline Phosphatase Lactate Dehydrogenase Troponin T C-Reactive Protein Total Protein Albumin Prealbumin Triglycerides Cholesterol LDL Cholesterol Direct HDL Cholesterol Urine pH Urine WBC (Auto) Urine Creatinine Urine Total Protein Fluid Total Protein Vancomycin Trough Rheumatoid Factor Complement C4 Miscellaneous Test Crossmatch 01/04/17 01/05/17 01/05/17 23:31 04:00 05:46 WBC RBC Hgb Hct MCV MCH MCHC RDW Plt Count Lymph % (Auto) Simpson % (Auto) Lymph # Simpson # Baso # Seg Neutrophils % Seg Neuts % (Manual) Lymphocytes % (Manual) Monocytes % (Manual) Eosinophils % (Manual) Basophils % (Manual) Nucleated RBC % Seg Neutrophils # Seg Neutrophils # Man Lymphocytes # (Manual) Monocytes # (Manual) Eosinophils # (Manual) Basophils # (Manual) PT INR Fibrinogen dRVVT Confirm Interp Factor V Activity POC ABG pH POC ABG pCO2 POC ABG pO2 ABG pO2 ABG HCO3 ABG Base Excess ABG Hemoglobin Oxyhemoglobin Sodium Potassium Chloride Carbon Dioxide BUN 52 H Creatinine 1.3 H Glucose 113 H POC Glucose 123 H 118 H Lactic Acid Calcium Phosphorus 2.40 L Magnesium Direct Bilirubin AST ALT Alkaline Phosphatase Lactate Dehydrogenase Troponin T C-Reactive Protein Total Protein Albumin Prealbumin Triglycerides Cholesterol LDL Cholesterol Direct HDL Cholesterol Urine pH Urine WBC (Auto) Urine Creatinine Urine Total Protein Fluid Total Protein Vancomycin Trough Rheumatoid Factor Complement C4 Miscellaneous Test Crossmatch 01/05/17 01/05/17 01/05/17 11:41 17:48 23:27 WBC RBC Hgb Hct MCV MCH MCHC RDW Plt Count Lymph % (Auto) Simpson % (Auto) Lymph # Simpson # Baso # Seg Neutrophils % Seg Neuts % (Manual) Lymphocytes % (Manual) Monocytes % (Manual) Eosinophils % (Manual) Basophils % (Manual) Nucleated RBC % Seg Neutrophils # Seg Neutrophils # Man Lymphocytes # (Manual) Monocytes # (Manual) Eosinophils # (Manual) Basophils # (Manual) PT INR Fibrinogen dRVVT Confirm Interp Factor V Activity POC ABG pH POC ABG pCO2 POC ABG pO2 ABG pO2 ABG HCO3 ABG Base Excess ABG Hemoglobin Oxyhemoglobin Sodium Potassium Chloride Carbon Dioxide BUN Creatinine Glucose POC Glucose 163 H 142 H 155 H Lactic Acid Calcium Phosphorus Magnesium Direct Bilirubin AST ALT Alkaline Phosphatase Lactate Dehydrogenase Troponin T C-Reactive Protein Total Protein Albumin Prealbumin Triglycerides Cholesterol LDL Cholesterol Direct HDL Cholesterol Urine pH Urine WBC (Auto) Urine Creatinine Urine Total Protein Fluid Total Protein Vancomycin Trough Rheumatoid Factor Complement C4 Miscellaneous Test Crossmatch 01/06/17 01/06/17 01/06/17 05:20 07:35 11:18 WBC RBC Hgb Hct MCV MCH MCHC RDW Plt Count Lymph % (Auto) Simpson % (Auto) Lymph # Simpson # Baso # Seg Neutrophils % Seg Neuts % (Manual) Lymphocytes % (Manual) Monocytes % (Manual) Eosinophils % (Manual) Basophils % (Manual) Nucleated RBC % Seg Neutrophils # Seg Neutrophils # Man Lymphocytes # (Manual) Monocytes # (Manual) Eosinophils # (Manual) Basophils # (Manual) PT INR Fibrinogen dRVVT Confirm Interp Factor V Activity POC ABG pH POC ABG pCO2 POC ABG pO2 ABG pO2 ABG HCO3 ABG Base Excess ABG Hemoglobin Oxyhemoglobin Sodium Potassium Chloride Carbon Dioxide BUN 74 H Creatinine 1.6 H Glucose 135 H POC Glucose 108 H 149 H Lactic Acid Calcium Phosphorus Magnesium Direct Bilirubin AST ALT Alkaline Phosphatase Lactate Dehydrogenase Troponin T C-Reactive Protein Total Protein Albumin Prealbumin Triglycerides Cholesterol LDL Cholesterol Direct HDL Cholesterol Urine pH Urine WBC (Auto) Urine Creatinine Urine Total Protein Fluid Total Protein Vancomycin Trough Rheumatoid Factor Complement C4 Miscellaneous Test Crossmatch 01/06/17 01/07/17 01/07/17 17:17 00:23 05:31 WBC RBC Hgb Hct MCV MCH MCHC RDW Plt Count Lymph % (Auto) Simpson % (Auto) Lymph # Simpson # Baso # Seg Neutrophils % Seg Neuts % (Manual) Lymphocytes % (Manual) Monocytes % (Manual) Eosinophils % (Manual) Basophils % (Manual) Nucleated RBC % Seg Neutrophils # Seg Neutrophils # Man Lymphocytes # (Manual) Monocytes # (Manual) Eosinophils # (Manual) Basophils # (Manual) PT INR Fibrinogen dRVVT Confirm Interp Factor V Activity POC ABG pH POC ABG pCO2 POC ABG pO2 ABG pO2 ABG HCO3 ABG Base Excess ABG Hemoglobin Oxyhemoglobin Sodium Potassium Chloride Carbon Dioxide BUN Creatinine Glucose POC Glucose 146 H 165 H 153 H Lactic Acid Calcium Phosphorus Magnesium Direct Bilirubin AST ALT Alkaline Phosphatase Lactate Dehydrogenase Troponin T C-Reactive Protein Total Protein Albumin Prealbumin Triglycerides Cholesterol LDL Cholesterol Direct HDL Cholesterol Urine pH Urine WBC (Auto) Urine Creatinine Urine Total Protein Fluid Total Protein Vancomycin Trough Rheumatoid Factor Complement C4 Miscellaneous Test Crossmatch 01/07/17 01/07/17 01/07/17 06:00 11:39 17:11 WBC RBC Hgb Hct MCV MCH MCHC RDW Plt Count Lymph % (Auto) Simpson % (Auto) Lymph # Simpson # Baso # Seg Neutrophils % Seg Neuts % (Manual) Lymphocytes % (Manual) Monocytes % (Manual) Eosinophils % (Manual) Basophils % (Manual) Nucleated RBC % Seg Neutrophils # Seg Neutrophils # Man Lymphocytes # (Manual) Monocytes # (Manual) Eosinophils # (Manual) Basophils # (Manual) PT INR Fibrinogen dRVVT Confirm Interp Factor V Activity POC ABG pH POC ABG pCO2 POC ABG pO2 ABG pO2 ABG HCO3 ABG Base Excess ABG Hemoglobin Oxyhemoglobin Sodium Potassium Chloride Carbon Dioxide BUN 42 H Creatinine Glucose 175 H POC Glucose 163 H 163 H Lactic Acid Calcium Phosphorus 2.40 L D Magnesium Direct Bilirubin AST ALT Alkaline Phosphatase Lactate Dehydrogenase Troponin T C-Reactive Protein Total Protein Albumin Prealbumin Triglycerides Cholesterol LDL Cholesterol Direct HDL Cholesterol Urine pH Urine WBC (Auto) Urine Creatinine Urine Total Protein Fluid Total Protein Vancomycin Trough Rheumatoid Factor Complement C4 Miscellaneous Test Crossmatch 01/07/17 01/08/17 01/08/17 23:40 05:00 05:00 WBC 27.4 H RBC 2.27 L Hgb 6.1 L Hct 20.4 L MCV MCH 27 L MCHC RDW 17.8 H Plt Count Lymph % (Auto) Simpson % (Auto) Lymph # Simpson # Baso # Seg Neutrophils % Seg Neuts % (Manual) Lymphocytes % (Manual) Monocytes % (Manual) Eosinophils % (Manual) Basophils % (Manual) Nucleated RBC % Seg Neutrophils # Seg Neutrophils # Man Lymphocytes # (Manual) Monocytes # (Manual) Eosinophils # (Manual) Basophils # (Manual) PT INR Fibrinogen dRVVT Confirm Interp Factor V Activity POC ABG pH POC ABG pCO2 POC ABG pO2 ABG pO2 ABG HCO3 ABG Base Excess ABG Hemoglobin Oxyhemoglobin Sodium Potassium Chloride Carbon Dioxide 16 L D BUN 62 H Creatinine 1.6 H D Glucose 103 H POC Glucose 135 H Lactic Acid Calcium Phosphorus Magnesium Direct Bilirubin AST ALT Alkaline Phosphatase Lactate Dehydrogenase Troponin T C-Reactive Protein Total Protein Albumin Prealbumin Triglycerides Cholesterol LDL Cholesterol Direct HDL Cholesterol Urine pH Urine WBC (Auto) Urine Creatinine Urine Total Protein Fluid Total Protein Vancomycin Trough Rheumatoid Factor Complement C4 Miscellaneous Test Crossmatch 01/08/17 01/08/17 01/08/17 05:25 10:37 10:37 WBC RBC Hgb Hct MCV MCH MCHC RDW Plt Count Lymph % (Auto) Simpson % (Auto) Lymph # Simpson # Baso # Seg Neutrophils % Seg Neuts % (Manual) Lymphocytes % (Manual) Monocytes % (Manual) Eosinophils % (Manual) Basophils % (Manual) Nucleated RBC % Seg Neutrophils # Seg Neutrophils # Man Lymphocytes # (Manual) Monocytes # (Manual) Eosinophils # (Manual) Basophils # (Manual) PT INR Fibrinogen dRVVT Confirm Interp Factor V Activity POC ABG pH POC ABG pCO2 POC ABG pO2 ABG pO2 ABG HCO3 ABG Base Excess ABG Hemoglobin Oxyhemoglobin Sodium Potassium Chloride Carbon Dioxide BUN Creatinine Glucose POC Glucose 106 H Lactic Acid Calcium Phosphorus Magnesium Direct Bilirubin AST ALT Alkaline Phosphatase Lactate Dehydrogenase Troponin T C-Reactive Protein 24.40 H Total Protein Albumin Prealbumin Triglycerides Cholesterol LDL Cholesterol Direct HDL Cholesterol Urine pH Urine WBC (Auto) Urine Creatinine Urine Total Protein Fluid Total Protein Vancomycin Trough Rheumatoid Factor Complement C4 Miscellaneous Test Crossmatch See Detail 01/08/17 01/08/17 01/08/17 10:37 11:33 15:15 WBC RBC Hgb Hct MCV MCH MCHC RDW Plt Count Lymph % (Auto) Simpson % (Auto) Lymph # Simpson # Baso # Seg Neutrophils % Seg Neuts % (Manual) Lymphocytes % (Manual) Monocytes % (Manual) Eosinophils % (Manual) Basophils % (Manual) Nucleated RBC % Seg Neutrophils # Seg Neutrophils # Man Lymphocytes # (Manual) Monocytes # (Manual) Eosinophils # (Manual) Basophils # (Manual) PT INR Fibrinogen dRVVT Confirm Interp Factor V Activity POC ABG pH POC ABG pCO2 POC ABG pO2 ABG pO2 ABG HCO3 ABG Base Excess ABG Hemoglobin Oxyhemoglobin Sodium Potassium Chloride Carbon Dioxide BUN Creatinine Glucose POC Glucose 157 H Lactic Acid 9.70 H* 9.10 H* Calcium Phosphorus Magnesium Direct Bilirubin AST ALT Alkaline Phosphatase Lactate Dehydrogenase Troponin T C-Reactive Protein Total Protein Albumin Prealbumin Triglycerides Cholesterol LDL Cholesterol Direct HDL Cholesterol Urine pH Urine WBC (Auto) Urine Creatinine Urine Total Protein Fluid Total Protein Vancomycin Trough Rheumatoid Factor Complement C4 Miscellaneous Test Crossmatch 01/08/17 01/08/17 01/09/17 17:19 23:12 04:40 WBC RBC Hgb Hct MCV MCH MCHC RDW Plt Count Lymph % (Auto) Simpson % (Auto) Lymph # Simpson # Baso # Seg Neutrophils % Seg Neuts % (Manual) Lymphocytes % (Manual) Monocytes % (Manual) Eosinophils % (Manual) Basophils % (Manual) Nucleated RBC % Seg Neutrophils # Seg Neutrophils # Man Lymphocytes # (Manual) Monocytes # (Manual) Eosinophils # (Manual) Basophils # (Manual) PT INR Fibrinogen dRVVT Confirm Interp Factor V Activity POC ABG pH POC ABG pCO2 POC ABG pO2 ABG pO2 ABG HCO3 ABG Base Excess ABG Hemoglobin Oxyhemoglobin Sodium 147 H Potassium Chloride Carbon Dioxide BUN 82 H Creatinine 1.8 H Glucose 137 H POC Glucose 164 H 157 H Lactic Acid Calcium Phosphorus Magnesium Direct Bilirubin AST ALT Alkaline Phosphatase Lactate Dehydrogenase Troponin T C-Reactive Protein Total Protein Albumin Prealbumin Triglycerides Cholesterol LDL Cholesterol Direct HDL Cholesterol Urine pH Urine WBC (Auto) Urine Creatinine Urine Total Protein Fluid Total Protein Vancomycin Trough Rheumatoid Factor Complement C4 Miscellaneous Test Crossmatch 01/09/17 01/09/17 01/09/17 05:42 08:22 10:57 WBC RBC Hgb Hct MCV MCH MCHC RDW Plt Count Lymph % (Auto) Simpson % (Auto) Lymph # Simpson # Baso # Seg Neutrophils % Seg Neuts % (Manual) Lymphocytes % (Manual) Monocytes % (Manual) Eosinophils % (Manual) Basophils % (Manual) Nucleated RBC % Seg Neutrophils # Seg Neutrophils # Man Lymphocytes # (Manual) Monocytes # (Manual) Eosinophils # (Manual) Basophils # (Manual) PT INR Fibrinogen dRVVT Confirm Interp Factor V Activity POC ABG pH POC ABG pCO2 POC ABG pO2 ABG pO2 ABG HCO3 ABG Base Excess ABG Hemoglobin Oxyhemoglobin Sodium Potassium Chloride Carbon Dioxide BUN Creatinine Glucose POC Glucose 156 H 122 H Lactic Acid 2.30 H* Calcium Phosphorus Magnesium Direct Bilirubin AST ALT Alkaline Phosphatase Lactate Dehydrogenase Troponin T C-Reactive Protein Total Protein Albumin Prealbumin Triglycerides Cholesterol LDL Cholesterol Direct HDL Cholesterol Urine pH Urine WBC (Auto) Urine Creatinine Urine Total Protein Fluid Total Protein Vancomycin Trough Rheumatoid Factor Complement C4 Miscellaneous Test Crossmatch 01/09/17 01/09/17 01/09/17 13:30 17:14 18:45 WBC RBC Hgb Hct MCV MCH MCHC RDW Plt Count Lymph % (Auto) Simpson % (Auto) Lymph # Simpson # Baso # Seg Neutrophils % Seg Neuts % (Manual) Lymphocytes % (Manual) Monocytes % (Manual) Eosinophils % (Manual) Basophils % (Manual) Nucleated RBC % Seg Neutrophils # Seg Neutrophils # Man Lymphocytes # (Manual) Monocytes # (Manual) Eosinophils # (Manual) Basophils # (Manual) PT INR Fibrinogen dRVVT Confirm Interp Factor V Activity POC ABG pH POC ABG pCO2 POC ABG pO2 ABG pO2 ABG HCO3 ABG Base Excess ABG Hemoglobin Oxyhemoglobin Sodium Potassium Chloride Carbon Dioxide BUN Creatinine Glucose POC Glucose 127 H Lactic Acid Calcium Phosphorus Magnesium Direct Bilirubin AST ALT Alkaline Phosphatase Lactate Dehydrogenase Troponin T C-Reactive Protein 24.70 H Total Protein Albumin Prealbumin Triglycerides Cholesterol LDL Cholesterol Direct HDL Cholesterol Urine pH Urine WBC (Auto) Urine Creatinine Urine Total Protein Fluid Total Protein Vancomycin Trough Rheumatoid Factor Complement C4 Miscellaneous Test Flexitest 1 H Crossmatch 01/10/17 01/10/17 01/10/17 01:21 04:00 04:00 WBC 18.1 H RBC 3.22 L Hgb 8.8 L Hct 27.0 L D MCV MCH 27 L MCHC RDW 17.0 H Plt Count Lymph % (Auto) Simpson % (Auto) Lymph # Simpson # Baso # Seg Neutrophils % Seg Neuts % (Manual) Lymphocytes % (Manual) Monocytes % (Manual) Eosinophils % (Manual) Basophils % (Manual) Nucleated RBC % Seg Neutrophils # Seg Neutrophils # Man Lymphocytes # (Manual) Monocytes # (Manual) Eosinophils # (Manual) Basophils # (Manual) PT INR Fibrinogen dRVVT Confirm Interp Factor V Activity POC ABG pH POC ABG pCO2 POC ABG pO2 ABG pO2 ABG HCO3 ABG Base Excess ABG Hemoglobin Oxyhemoglobin Sodium Potassium Chloride Carbon Dioxide BUN 59 H Creatinine 1.3 H Glucose 122 H POC Glucose 160 H Lactic Acid Calcium Phosphorus Magnesium Direct Bilirubin AST ALT Alkaline Phosphatase Lactate Dehydrogenase Troponin T C-Reactive Protein Total Protein Albumin Prealbumin Triglycerides Cholesterol LDL Cholesterol Direct HDL Cholesterol Urine pH Urine WBC (Auto) Urine Creatinine Urine Total Protein Fluid Total Protein Vancomycin Trough Rheumatoid Factor Complement C4 Miscellaneous Test Crossmatch 01/10/17 01/10/17 01/10/17 05:36 12:14 17:55 WBC RBC Hgb Hct MCV MCH MCHC RDW Plt Count Lymph % (Auto) Simpson % (Auto) Lymph # Simpson # Baso # Seg Neutrophils % Seg Neuts % (Manual) Lymphocytes % (Manual) Monocytes % (Manual) Eosinophils % (Manual) Basophils % (Manual) Nucleated RBC % Seg Neutrophils # Seg Neutrophils # Man Lymphocytes # (Manual) Monocytes # (Manual) Eosinophils # (Manual) Basophils # (Manual) PT INR Fibrinogen dRVVT Confirm Interp Factor V Activity POC ABG pH POC ABG pCO2 POC ABG pO2 ABG pO2 ABG HCO3 ABG Base Excess ABG Hemoglobin Oxyhemoglobin Sodium Potassium Chloride Carbon Dioxide BUN Creatinine Glucose POC Glucose 163 H 120 H 144 H Lactic Acid Calcium Phosphorus Magnesium Direct Bilirubin AST ALT Alkaline Phosphatase Lactate Dehydrogenase Troponin T C-Reactive Protein Total Protein Albumin Prealbumin Triglycerides Cholesterol LDL Cholesterol Direct HDL Cholesterol Urine pH Urine WBC (Auto) Urine Creatinine Urine Total Protein Fluid Total Protein Vancomycin Trough Rheumatoid Factor Complement C4 Miscellaneous Test Crossmatch 01/11/17 01/11/17 01/11/17 00:09 04:00 04:00 WBC 15.8 H RBC 3.04 L Hgb 8.2 L Hct 25.5 L MCV MCH 27 L MCHC RDW 17.3 H Plt Count Lymph % (Auto) Simpson % (Auto) Lymph # Simpson # Baso # Seg Neutrophils % Seg Neuts % (Manual) Lymphocytes % (Manual) Monocytes % (Manual) Eosinophils % (Manual) Basophils % (Manual) Nucleated RBC % Seg Neutrophils # Seg Neutrophils # Man Lymphocytes # (Manual) Monocytes # (Manual) Eosinophils # (Manual) Basophils # (Manual) PT INR Fibrinogen dRVVT Confirm Interp Factor V Activity POC ABG pH POC ABG pCO2 POC ABG pO2 ABG pO2 ABG HCO3 ABG Base Excess ABG Hemoglobin Oxyhemoglobin Sodium Potassium Chloride Carbon Dioxide BUN 78 H Creatinine 1.6 H Glucose 109 H POC Glucose 122 H Lactic Acid Calcium Phosphorus Magnesium Direct Bilirubin AST ALT Alkaline Phosphatase Lactate Dehydrogenase Troponin T C-Reactive Protein Total Protein Albumin Prealbumin Triglycerides Cholesterol LDL Cholesterol Direct HDL Cholesterol Urine pH Urine WBC (Auto) Urine Creatinine Urine Total Protein Fluid Total Protein Vancomycin Trough Rheumatoid Factor Complement C4 Miscellaneous Test Crossmatch 01/11/17 01/11/17 01/11/17 12:46 18:23 23:42 WBC RBC Hgb Hct MCV MCH MCHC RDW Plt Count Lymph % (Auto) Simpson % (Auto) Lymph # Simpson # Baso # Seg Neutrophils % Seg Neuts % (Manual) Lymphocytes % (Manual) Monocytes % (Manual) Eosinophils % (Manual) Basophils % (Manual) Nucleated RBC % Seg Neutrophils # Seg Neutrophils # Man Lymphocytes # (Manual) Monocytes # (Manual) Eosinophils # (Manual) Basophils # (Manual) PT INR Fibrinogen dRVVT Confirm Interp Factor V Activity POC ABG pH POC ABG pCO2 POC ABG pO2 ABG pO2 ABG HCO3 ABG Base Excess ABG Hemoglobin Oxyhemoglobin Sodium Potassium Chloride Carbon Dioxide BUN Creatinine Glucose POC Glucose 148 H 125 H 124 H Lactic Acid Calcium Phosphorus Magnesium Direct Bilirubin AST ALT Alkaline Phosphatase Lactate Dehydrogenase Troponin T C-Reactive Protein Total Protein Albumin Prealbumin Triglycerides Cholesterol LDL Cholesterol Direct HDL Cholesterol Urine pH Urine WBC (Auto) Urine Creatinine Urine Total Protein Fluid Total Protein Vancomycin Trough Rheumatoid Factor Complement C4 Miscellaneous Test Crossmatch 01/12/17 01/12/17 01/12/17 04:30 04:30 05:47 WBC 15.8 H RBC 3.31 L Hgb 8.9 L Hct 27.9 L MCV MCH 27 L MCHC RDW 17.4 H Plt Count Lymph % (Auto) Simpson % (Auto) Lymph # Simpson # Baso # Seg Neutrophils % Seg Neuts % (Manual) Lymphocytes % (Manual) Monocytes % (Manual) Eosinophils % (Manual) Basophils % (Manual) Nucleated RBC % Seg Neutrophils # Seg Neutrophils # Man Lymphocytes # (Manual) Monocytes # (Manual) Eosinophils # (Manual) Basophils # (Manual) PT INR Fibrinogen dRVVT Confirm Interp Factor V Activity POC ABG pH POC ABG pCO2 POC ABG pO2 ABG pO2 ABG HCO3 ABG Base Excess ABG Hemoglobin Oxyhemoglobin Sodium Potassium Chloride Carbon Dioxide BUN 57 H Creatinine Glucose 121 H POC Glucose 110 H Lactic Acid Calcium Phosphorus 2.10 L Magnesium Direct Bilirubin AST ALT Alkaline Phosphatase Lactate Dehydrogenase Troponin T C-Reactive Protein Total Protein Albumin Prealbumin Triglycerides Cholesterol LDL Cholesterol Direct HDL Cholesterol Urine pH Urine WBC (Auto) Urine Creatinine Urine Total Protein Fluid Total Protein Vancomycin Trough Rheumatoid Factor Complement C4 Miscellaneous Test Crossmatch 01/12/17 01/12/17 01/12/17 11:35 17:45 23:14 WBC RBC Hgb Hct MCV MCH MCHC RDW Plt Count Lymph % (Auto) Simpson % (Auto) Lymph # Simpson # Baso # Seg Neutrophils % Seg Neuts % (Manual) Lymphocytes % (Manual) Monocytes % (Manual) Eosinophils % (Manual) Basophils % (Manual) Nucleated RBC % Seg Neutrophils # Seg Neutrophils # Man Lymphocytes # (Manual) Monocytes # (Manual) Eosinophils # (Manual) Basophils # (Manual) PT INR Fibrinogen dRVVT Confirm Interp Factor V Activity POC ABG pH POC ABG pCO2 POC ABG pO2 ABG pO2 ABG HCO3 ABG Base Excess ABG Hemoglobin Oxyhemoglobin Sodium Potassium Chloride Carbon Dioxide BUN Creatinine Glucose POC Glucose 146 H 117 H 123 H Lactic Acid Calcium Phosphorus Magnesium Direct Bilirubin AST ALT Alkaline Phosphatase Lactate Dehydrogenase Troponin T C-Reactive Protein Total Protein Albumin Prealbumin Triglycerides Cholesterol LDL Cholesterol Direct HDL Cholesterol Urine pH Urine WBC (Auto) Urine Creatinine Urine Total Protein Fluid Total Protein Vancomycin Trough Rheumatoid Factor Complement C4 Miscellaneous Test Crossmatch 01/13/17 01/13/17 01/13/17 05:32 06:00 12:10 WBC RBC Hgb Hct MCV MCH MCHC RDW Plt Count Lymph % (Auto) Simpson % (Auto) Lymph # Simpson # Baso # Seg Neutrophils % Seg Neuts % (Manual) Lymphocytes % (Manual) Monocytes % (Manual) Eosinophils % (Manual) Basophils % (Manual) Nucleated RBC % Seg Neutrophils # Seg Neutrophils # Man Lymphocytes # (Manual) Monocytes # (Manual) Eosinophils # (Manual) Basophils # (Manual) PT INR Fibrinogen dRVVT Confirm Interp Factor V Activity POC ABG pH POC ABG pCO2 POC ABG pO2 ABG pO2 ABG HCO3 ABG Base Excess ABG Hemoglobin Oxyhemoglobin Sodium Potassium Chloride Carbon Dioxide BUN 80 H Creatinine 1.4 H Glucose 106 H POC Glucose 106 H Lactic Acid Calcium Phosphorus Magnesium Direct Bilirubin AST ALT Alkaline Phosphatase Lactate Dehydrogenase Troponin T C-Reactive Protein Total Protein Albumin Prealbumin Triglycerides Cholesterol LDL Cholesterol Direct HDL Cholesterol Urine pH Urine WBC (Auto) Urine Creatinine Urine Total Protein Fluid Total Protein 3.0 L Vancomycin Trough Rheumatoid Factor Complement C4 Miscellaneous Test Crossmatch 01/13/17 01/13/17 01/13/17 12:17 15:50 17:30 WBC RBC Hgb Hct MCV MCH MCHC RDW Plt Count Lymph % (Auto) Simpson % (Auto) Lymph # Simpson # Baso # Seg Neutrophils % Seg Neuts % (Manual) Lymphocytes % (Manual) Monocytes % (Manual) Eosinophils % (Manual) Basophils % (Manual) Nucleated RBC % Seg Neutrophils # Seg Neutrophils # Man Lymphocytes # (Manual) Monocytes # (Manual) Eosinophils # (Manual) Basophils # (Manual) PT 15.4 H INR 1.16 H Fibrinogen dRVVT Confirm Interp Factor V Activity POC ABG pH POC ABG pCO2 POC ABG pO2 ABG pO2 ABG HCO3 ABG Base Excess ABG Hemoglobin Oxyhemoglobin Sodium Potassium Chloride Carbon Dioxide BUN Creatinine Glucose POC Glucose 168 H 110 H Lactic Acid Calcium Phosphorus Magnesium Direct Bilirubin AST ALT Alkaline Phosphatase Lactate Dehydrogenase Troponin T C-Reactive Protein Total Protein Albumin Prealbumin Triglycerides Cholesterol LDL Cholesterol Direct HDL Cholesterol Urine pH Urine WBC (Auto) Urine Creatinine Urine Total Protein Fluid Total Protein Vancomycin Trough Rheumatoid Factor Complement C4 Miscellaneous Test Crossmatch 01/13/17 01/14/17 01/14/17 23:42 05:24 05:30 WBC RBC Hgb Hct MCV MCH MCHC RDW Plt Count Lymph % (Auto) Simpson % (Auto) Lymph # Simpson # Baso # Seg Neutrophils % Seg Neuts % (Manual) Lymphocytes % (Manual) Monocytes % (Manual) Eosinophils % (Manual) Basophils % (Manual) Nucleated RBC % Seg Neutrophils # Seg Neutrophils # Man Lymphocytes # (Manual) Monocytes # (Manual) Eosinophils # (Manual) Basophils # (Manual) PT INR Fibrinogen dRVVT Confirm Interp Factor V Activity POC ABG pH POC ABG pCO2 POC ABG pO2 ABG pO2 ABG HCO3 ABG Base Excess ABG Hemoglobin Oxyhemoglobin Sodium Potassium Chloride Carbon Dioxide BUN 58 H Creatinine Glucose 114 H POC Glucose 155 H 121 H Lactic Acid Calcium Phosphorus Magnesium Direct Bilirubin AST ALT Alkaline Phosphatase Lactate Dehydrogenase Troponin T C-Reactive Protein Total Protein Albumin Prealbumin Triglycerides Cholesterol LDL Cholesterol Direct HDL Cholesterol Urine pH Urine WBC (Auto) Urine Creatinine Urine Total Protein Fluid Total Protein Vancomycin Trough Rheumatoid Factor Complement C4 Miscellaneous Test Crossmatch 01/14/17 01/14/17 01/15/17 12:48 17:36 00:15 WBC RBC Hgb Hct MCV MCH MCHC RDW Plt Count Lymph % (Auto) Simpson % (Auto) Lymph # Simpson # Baso # Seg Neutrophils % Seg Neuts % (Manual) Lymphocytes % (Manual) Monocytes % (Manual) Eosinophils % (Manual) Basophils % (Manual) Nucleated RBC % Seg Neutrophils # Seg Neutrophils # Man Lymphocytes # (Manual) Monocytes # (Manual) Eosinophils # (Manual) Basophils # (Manual) PT INR Fibrinogen dRVVT Confirm Interp Factor V Activity POC ABG pH POC ABG pCO2 POC ABG pO2 ABG pO2 ABG HCO3 ABG Base Excess ABG Hemoglobin Oxyhemoglobin Sodium Potassium Chloride Carbon Dioxide BUN Creatinine Glucose POC Glucose 130 H 135 H 132 H Lactic Acid Calcium Phosphorus Magnesium Direct Bilirubin AST ALT Alkaline Phosphatase Lactate Dehydrogenase Troponin T C-Reactive Protein Total Protein Albumin Prealbumin Triglycerides Cholesterol LDL Cholesterol Direct HDL Cholesterol Urine pH Urine WBC (Auto) Urine Creatinine Urine Total Protein Fluid Total Protein Vancomycin Trough Rheumatoid Factor Complement C4 Miscellaneous Test Crossmatch 01/15/17 01/15/17 01/15/17 05:01 11:55 12:45 WBC 16.2 H RBC 3.00 L Hgb 8.1 L Hct 25.4 L MCV MCH 27 L MCHC RDW 17.6 H Plt Count Lymph % (Auto) 11.7 L Simpson % (Auto) 7.8 H Lymph # Simpson # 1.3 H Baso # Seg Neutrophils % 80.1 H Seg Neuts % (Manual) Lymphocytes % (Manual) Monocytes % (Manual) Eosinophils % (Manual) Basophils % (Manual) Nucleated RBC % Seg Neutrophils # 13.0 H Seg Neutrophils # Man Lymphocytes # (Manual) Monocytes # (Manual) Eosinophils # (Manual) Basophils # (Manual) PT INR Fibrinogen dRVVT Confirm Interp Factor V Activity POC ABG pH POC ABG pCO2 POC ABG pO2 ABG pO2 ABG HCO3 ABG Base Excess ABG Hemoglobin Oxyhemoglobin Sodium Potassium Chloride Carbon Dioxide BUN Creatinine Glucose POC Glucose 126 H 125 H Lactic Acid Calcium Phosphorus Magnesium Direct Bilirubin AST ALT Alkaline Phosphatase Lactate Dehydrogenase Troponin T C-Reactive Protein Total Protein Albumin Prealbumin Triglycerides Cholesterol LDL Cholesterol Direct HDL Cholesterol Urine pH Urine WBC (Auto) Urine Creatinine Urine Total Protein Fluid Total Protein Vancomycin Trough Rheumatoid Factor Complement C4 Miscellaneous Test Crossmatch 01/15/17 01/15/17 01/15/17 12:45 17:31 23:39 WBC RBC Hgb Hct MCV MCH MCHC RDW Plt Count Lymph % (Auto) Simpson % (Auto) Lymph # Simpson # Baso # Seg Neutrophils % Seg Neuts % (Manual) Lymphocytes % (Manual) Monocytes % (Manual) Eosinophils % (Manual) Basophils % (Manual) Nucleated RBC % Seg Neutrophils # Seg Neutrophils # Man Lymphocytes # (Manual) Monocytes # (Manual) Eosinophils # (Manual) Basophils # (Manual) PT INR Fibrinogen dRVVT Confirm Interp Factor V Activity POC ABG pH POC ABG pCO2 POC ABG pO2 ABG pO2 ABG HCO3 ABG Base Excess ABG Hemoglobin Oxyhemoglobin Sodium 136 L Potassium Chloride Carbon Dioxide BUN 87 H Creatinine 1.7 H Glucose 108 H POC Glucose 129 H 112 H Lactic Acid Calcium Phosphorus Magnesium Direct Bilirubin AST ALT Alkaline Phosphatase Lactate Dehydrogenase Troponin T C-Reactive Protein Total Protein Albumin Prealbumin Triglycerides Cholesterol LDL Cholesterol Direct HDL Cholesterol Urine pH Urine WBC (Auto) Urine Creatinine Urine Total Protein Fluid Total Protein Vancomycin Trough Rheumatoid Factor Complement C4 Miscellaneous Test Crossmatch 01/16/17 01/16/17 01/16/17 05:23 11:42 12:32 WBC RBC Hgb Hct MCV MCH MCHC RDW Plt Count Lymph % (Auto) Simpson % (Auto) Lymph # Simpson # Baso # Seg Neutrophils % Seg Neuts % (Manual) Lymphocytes % (Manual) Monocytes % (Manual) Eosinophils % (Manual) Basophils % (Manual) Nucleated RBC % Seg Neutrophils # Seg Neutrophils # Man Lymphocytes # (Manual) Monocytes # (Manual) Eosinophils # (Manual) Basophils # (Manual) PT INR Fibrinogen dRVVT Confirm Interp Factor V Activity POC ABG pH 7.499 H POC ABG pCO2 30.9 L POC ABG pO2 51 L ABG pO2 ABG HCO3 ABG Base Excess ABG Hemoglobin Oxyhemoglobin Sodium Potassium Chloride Carbon Dioxide BUN Creatinine Glucose POC Glucose 118 H 133 H Lactic Acid Calcium Phosphorus Magnesium Direct Bilirubin AST ALT Alkaline Phosphatase Lactate Dehydrogenase Troponin T C-Reactive Protein Total Protein Albumin Prealbumin Triglycerides Cholesterol LDL Cholesterol Direct HDL Cholesterol Urine pH Urine WBC (Auto) Urine Creatinine Urine Total Protein Fluid Total Protein Vancomycin Trough Rheumatoid Factor Complement C4 Miscellaneous Test Crossmatch 01/16/17 01/16/17 01/16/17 17:52 23:57 Unknown WBC RBC Hgb Hct MCV MCH MCHC RDW Plt Count Lymph % (Auto) Simpson % (Auto) Lymph # Simpson # Baso # Seg Neutrophils % Seg Neuts % (Manual) Lymphocytes % (Manual) Monocytes % (Manual) Eosinophils % (Manual) Basophils % (Manual) Nucleated RBC % Seg Neutrophils # Seg Neutrophils # Man Lymphocytes # (Manual) Monocytes # (Manual) Eosinophils # (Manual) Basophils # (Manual) PT INR Fibrinogen dRVVT Confirm Interp Factor V Activity POC ABG pH POC ABG pCO2 POC ABG pO2 ABG pO2 ABG HCO3 ABG Base Excess ABG Hemoglobin Oxyhemoglobin Sodium 135 L Potassium Chloride Carbon Dioxide BUN 101 H Creatinine 1.8 H Glucose 117 H POC Glucose 130 H 143 H Lactic Acid Calcium Phosphorus 5.80 H Magnesium Direct Bilirubin AST ALT Alkaline Phosphatase Lactate Dehydrogenase Troponin T C-Reactive Protein Total Protein Albumin Prealbumin Triglycerides Cholesterol LDL Cholesterol Direct HDL Cholesterol Urine pH Urine WBC (Auto) Urine Creatinine Urine Total Protein Fluid Total Protein Vancomycin Trough Rheumatoid Factor Complement C4 Miscellaneous Test Crossmatch 01/17/17 01/17/17 01/17/17 05:30 05:46 11:49 WBC RBC Hgb Hct MCV MCH MCHC RDW Plt Count Lymph % (Auto) Simpson % (Auto) Lymph # Simpson # Baso # Seg Neutrophils % Seg Neuts % (Manual) Lymphocytes % (Manual) Monocytes % (Manual) Eosinophils % (Manual) Basophils % (Manual) Nucleated RBC % Seg Neutrophils # Seg Neutrophils # Man Lymphocytes # (Manual) Monocytes # (Manual) Eosinophils # (Manual) Basophils # (Manual) PT INR Fibrinogen dRVVT Confirm Interp Factor V Activity POC ABG pH POC ABG pCO2 POC ABG pO2 ABG pO2 ABG HCO3 ABG Base Excess ABG Hemoglobin Oxyhemoglobin Sodium 134 L Potassium Chloride 95.8 L Carbon Dioxide BUN 66 H Creatinine 1.3 H Glucose 138 H POC Glucose 147 H 124 H Lactic Acid Calcium Phosphorus Magnesium Direct Bilirubin AST ALT Alkaline Phosphatase 254 H Lactate Dehydrogenase Troponin T C-Reactive Protein Total Protein Albumin 1.3 L Prealbumin Triglycerides Cholesterol LDL Cholesterol Direct HDL Cholesterol Urine pH Urine WBC (Auto) Urine Creatinine Urine Total Protein Fluid Total Protein Vancomycin Trough Rheumatoid Factor Complement C4 Miscellaneous Test Crossmatch 01/17/17 01/17/17 01/18/17 17:30 23:41 05:15 WBC RBC Hgb Hct MCV MCH MCHC RDW Plt Count Lymph % (Auto) Simpson % (Auto) Lymph # Simpson # Baso # Seg Neutrophils % Seg Neuts % (Manual) Lymphocytes % (Manual) Monocytes % (Manual) Eosinophils % (Manual) Basophils % (Manual) Nucleated RBC % Seg Neutrophils # Seg Neutrophils # Man Lymphocytes # (Manual) Monocytes # (Manual) Eosinophils # (Manual) Basophils # (Manual) PT INR Fibrinogen dRVVT Confirm Interp Factor V Activity POC ABG pH POC ABG pCO2 POC ABG pO2 ABG pO2 ABG HCO3 ABG Base Excess ABG Hemoglobin Oxyhemoglobin Sodium Potassium Chloride Carbon Dioxide BUN 89 H Creatinine 1.7 H Glucose 118 H POC Glucose 137 H 119 H Lactic Acid Calcium Phosphorus Magnesium Direct Bilirubin AST ALT Alkaline Phosphatase Lactate Dehydrogenase Troponin T C-Reactive Protein Total Protein Albumin Prealbumin Triglycerides Cholesterol LDL Cholesterol Direct HDL Cholesterol Urine pH Urine WBC (Auto) Urine Creatinine Urine Total Protein Fluid Total Protein Vancomycin Trough Rheumatoid Factor Complement C4 Miscellaneous Test Crossmatch 01/18/17 01/18/17 01/18/17 05:19 12:16 18:11 WBC RBC Hgb Hct MCV MCH MCHC RDW Plt Count Lymph % (Auto) Simpson % (Auto) Lymph # Simpson # Baso # Seg Neutrophils % Seg Neuts % (Manual) Lymphocytes % (Manual) Monocytes % (Manual) Eosinophils % (Manual) Basophils % (Manual) Nucleated RBC % Seg Neutrophils # Seg Neutrophils # Man Lymphocytes # (Manual) Monocytes # (Manual) Eosinophils # (Manual) Basophils # (Manual) PT INR Fibrinogen dRVVT Confirm Interp Factor V Activity POC ABG pH POC ABG pCO2 POC ABG pO2 ABG pO2 ABG HCO3 ABG Base Excess ABG Hemoglobin Oxyhemoglobin Sodium Potassium Chloride Carbon Dioxide BUN Creatinine Glucose POC Glucose 134 H 188 H 113 H Lactic Acid Calcium Phosphorus Magnesium Direct Bilirubin AST ALT Alkaline Phosphatase Lactate Dehydrogenase Troponin T C-Reactive Protein Total Protein Albumin Prealbumin Triglycerides Cholesterol LDL Cholesterol Direct HDL Cholesterol Urine pH Urine WBC (Auto) Urine Creatinine Urine Total Protein Fluid Total Protein Vancomycin Trough Rheumatoid Factor Complement C4 Miscellaneous Test Crossmatch 01/19/17 01/19/17 01/19/17 00:00 05:30 05:36 WBC RBC Hgb Hct MCV MCH MCHC RDW Plt Count Lymph % (Auto) Simpson % (Auto) Lymph # Simpson # Baso # Seg Neutrophils % Seg Neuts % (Manual) Lymphocytes % (Manual) Monocytes % (Manual) Eosinophils % (Manual) Basophils % (Manual) Nucleated RBC % Seg Neutrophils # Seg Neutrophils # Man Lymphocytes # (Manual) Monocytes # (Manual) Eosinophils # (Manual) Basophils # (Manual) PT INR Fibrinogen dRVVT Confirm Interp Factor V Activity POC ABG pH POC ABG pCO2 POC ABG pO2 ABG pO2 ABG HCO3 ABG Base Excess ABG Hemoglobin Oxyhemoglobin Sodium Potassium Chloride Carbon Dioxide BUN 70 H Creatinine 1.5 H Glucose 121 H POC Glucose 137 H 155 H Lactic Acid Calcium Phosphorus 2.10 L D Magnesium Direct Bilirubin AST ALT Alkaline Phosphatase Lactate Dehydrogenase Troponin T C-Reactive Protein Total Protein Albumin Prealbumin Triglycerides Cholesterol LDL Cholesterol Direct HDL Cholesterol Urine pH Urine WBC (Auto) Urine Creatinine Urine Total Protein Fluid Total Protein Vancomycin Trough Rheumatoid Factor Complement C4 Miscellaneous Test Crossmatch Allied health notes reviewed: RT (not tolerating weaning. Has been on hold as she has been vomiting)
[2017-01-19] MEDS: DURAGESIC TD SCH ×2 (12:03→12:50)
[2017-01-19] MEDS ORDERED: ERYTHROMYCIN LACTOBIONATE 250 MG in NACL 0.9% 100 ML IV SCH (13:00)
[2017-01-19] MEDS: TRANSDERM-SCOP TD SCH (13:10)
--- NOTE | 2017-01-19 17:20 | Progress Note ---
Assessment and Plan Assessment and plan: Patient is 46-year-old woman with a history of hypertension, diabetes, asthma, hyperlipidemia, chronic kidney disease and anxiety , who was brought in by family because, she couldn't get her words out, her face was also twisted, she was admitted for acute CVA and accelerated hypertension, she had a hx of poor adherence with her medications, and uncontrolled htn. Patient's SBP on admission was noted be greater than 260. TPA was started but this was discontinued after 5 minutes because her blood pressure became uncontrolled. The TPA was not initiated again because the patient was outside the TPA window. Ethics consult placed Spoke with son and brother, informed about persistent vegitative state. patient continues to have multiple recurrent fever, hypotension despite fluid overload, multiple recurrent electrolyte abnormalities, on TPN and cannot advance to Tube feeds due to overall clinical condition including bowel condition going on over 3 months. Family reports they were told by surgeon that patient will get better, I truly will like to believe the optimism but despite our best efforts, patients clinical condition at best is worse rather than improving. This has been conveyed to the family. They hope to come to the hospital for a family meeting. We will continue all aggressive treatment methods. Will inform surgery about families visit once a time has been selected. Risk Management updated. Patient now on recurrent anemia requiring 2 units packed red blood cell Severe Leukocytosis. contiune meropenem and ID. on the patient has no fever she is also with lactic acidosis of 9 which will be repeated. If leukocytosis is not improving should repeat CT abdomen and pelvis to rule out ischemic bowel Status post cardiac arrest , 11/21/16 on Mechanical ventilation >96 hrs - Received CPR and was resuscitated. - Patient is on amiodarone. Fever - resolved - Patient was initially treated with Abx - s/p R thoracentesis on 11/14, 240cc of serous fluid removed, cx of fluid was negative - Stool negative for C. difficile Severe Sepsis with septic shock - Patient has episode of fever and leukocytosis -Recurrent Leukocytosis, with Meropenem restarted, due to continued sacral decubitus. Surgical wound infection/gram-negative sepsis/candidemia/peritonitis - On TPN JUANITA, ESRD - discussed with Dr Wadsworth - on HD - Cr 1.9 today Acute CVA with infarct - Neurology input appreciated - CT shows continued evolution of left MCA infarct with slight mass effect and edema, and there is no hemorrhage - PRINCE showed hyperdynamic with ef of 75%, neither clot nor septal defect seen - MRA Brain shows near complete occlusion of M2 and M3 of the left MCA - Repeat CT scan done on 09/11, shows stable findings - carotid doppler negative - Echo shows preserved systolic function but does show some left ventricular diastolic dysfunction - continue asa and statin Persistent vegetative state - This patient's needs placement at SNF - She was denied for LTACH Acute hypoxic respiratory failure requiring MV >96hrs - Status post tracheostomy, was on T piece Nosocomial acquired aspiration pneumonia/sepsis/UTI - Finished a course of antibiotics Asthma/COPD exacerbation - ON trach, mechanical ventilation >96 hrs Status Post CVA Bilateral pleural effusion, s/p right thoracentesis A. fib with RVR Diabetes type 2. Continue sliding-scale regular insulin and Accu-Cheks. Hyperlipidemia. Continue statin Nutrition - TPN Anemia requiring multiple transfusions/acute blood loss - currently stable - Check AM labs - Will transfuse if it is below 7 Sacral decubitus ulcer - Status post debridement Disposition. Very poor prognosis. Ethics consult has been placed, will await there input. Cannot reach family, multiple calls placed. Nursing staff on the look out for family and will notify physician. The high probability of a clinically significant, sudden or life threatening deterioration of the [neurologic, CV] system(s) required my full and direct attention, intervention and personal management. The aggregate critical care time was [35] minutes. This time is in addition to time spent performing reported procedures but includes the following: [x] Data Review and interpretation [x] Patient assessment and monitoring of vital signs [x] Documentation [x] Medication orders and management History Interval history: patient seen and examined, remains unresponsive on the ventilator. intermittent fever. Hospitalist Physical - Physical exam Narrative exam: GEN: Ill appearing, trach, staring into space, not tracking either NECK: SUPPLE, trach in place, ngt in place CVS: regular currently NORMAL S1S2 LUNGS/CHEST: NORMAL CHEST EXPANSION B, GOOD AIR ENTRY B ABD: SOFT, no grimise on abdominal palpation, ostomy bags in different locations AND STILL DRAINING, GBS, NO REBOUND OR GUARDING, peg tube in place EXT/SKIN: NO SIGNIFICANT EDEMA BUT WITH UNSTAGEABLE SACRAL DECUB, wound vac inplace MSK: +spontaneous non purposeful movement NEURO: on a ventilator and unresponsive despite being off sedation PSY: Comatose, - Constitutional Vitals: Temp Pulse Resp BP Pulse Ox 100.2 F H 106 H 22 87/44 100 01/19/17 16:00 01/19/17 16:15 01/19/17 16:15 01/19/17 16:15 01/19/17 16:15 General appearance: Present: no acute distress, well-nourished, obese Results - Labs CBC & Chem 7: 01/15/17 12:45 01/20/17 04:00 Labs: Laboratory Last Values WBC 16.2 K/mm3 (4.5-11.0) H 01/15/17 12:45 RBC 3.00 M/mm3 (3.65-5.03) L 01/15/17 12:45 Hgb 8.1 gm/dl (10.1-14.3) L 01/15/17 12:45 Hct 25.4 % (30.3-42.9) L 01/15/17 12:45 MCV 85 fl (79-97) 01/15/17 12:45 MCH 27 pg (28-32) L 01/15/17 12:45 MCHC 32 % (30-34) 01/15/17 12:45 RDW 17.6 % (13.2-15.2) H 01/15/17 12:45 Plt Count 287 K/mm3 (140-440) 01/15/17 12:45 Lymph % (Auto) 11.7 % (13.4-35.0) L 01/15/17 12:45 [place] % (Auto) 7.8 % (0.0-7.3) H 01/15/17 12:45 Eos % (Auto) 0.1 % (0.0-4.3) 01/15/17 12:45 Baso % (Auto) 0.3 % (0.0-1.8) 01/15/17 12:45 Lymph # 1.9 K/mm3 (1.2-5.4) 01/15/17 12:45 [place] # 1.3 K/mm3 (0.0-0.8) H 01/15/17 12:45 Eos # 0.0 K/mm3 (0.0-0.4) 01/15/17 12:45 Baso # 0.0 K/mm3 (0.0-0.1) 01/15/17 12:45 Add Manual Diff Complete 12/19/16 05:02 Total Counted 100 12/19/16 05:02 Seg Neutrophils % 80.1 % (40.0-70.0) H 01/15/17 12:45 Seg Neuts % (Manual) 64.0 % (40.0-70.0) 12/19/16 05:02 Band Neutrophils % 15.0 % 12/19/16 05:02 Lymphocytes % (Manual) 13.0 % (13.4-35.0) L 12/19/16 05:02 Reactive Lymphs % (Man) 0 % 12/19/16 05:02 Monocytes % (Manual) 7.0 % (0.0-7.3) 12/19/16 05:02 Eosinophils % (Manual) 0 % (0.0-4.3) 12/19/16 05:02 Basophils % (Manual) 1.0 % (0.0-1.8) 12/19/16 05:02 Metamyelocytes % 0 % 12/19/16 05:02 Myelocytes % 0 % 12/19/16 05:02 Promyelocytes % 0 % 12/19/16 05:02 Blast Cells % 0 % 12/19/16 05:02 Nucleated RBC % 1.0 % (0.0-0.9) H 12/19/16 05:02 Seg Neutrophils # 13.0 K/mm3 (1.8-7.7) H 01/15/17 12:45 Seg Neutrophils # Man 12.9 K/mm3 (1.8-7.7) H 12/19/16 05:02 Band Neutrophils # 3.0 K/mm3 12/19/16 05:02 Lymphocytes # (Manual) 2.6 K/mm3 (1.2-5.4) 12/19/16 05:02 Abs React Lymphs (Man) 0.0 K/mm3 12/19/16 05:02 Monocytes # (Manual) 1.4 K/mm3 (0.0-0.8) H 12/19/16 05:02 Eosinophils # (Manual) 0.0 K/mm3 (0.0-0.4) 12/19/16 05:02 Basophils # (Manual) 0.2 K/mm3 (0.0-0.1) H 12/19/16 05:02 Metamyelocytes # 0.0 K/mm3 12/19/16 05:02 Myelocytes # 0.0 K/mm3 12/19/16 05:02 Promyelocytes # 0.0 K/mm3 12/19/16 05:02 Blast Cells # 0.0 K/mm3 12/19/16 05:02 Pathologist Review 09/13/16 04:00 WBC Morphology Not Reportable 12/19/16 05:02 Hypersegmented Neuts Not Reportable 12/19/16 05:02 Hyposegmented Neuts Not Reportable 12/19/16 05:02 Hypogranular Neuts Not Reportable 12/19/16 05:02 Smudge Cells Not Reportable 12/19/16 05:02 Toxic Granulation Not Reportable 12/19/16 05:02 Toxic Vacuolation Not Reportable 12/19/16 05:02 Dohle Bodies Not Reportable 12/19/16 05:02 Pelger-Huet Anomaly Not Reportable 12/19/16 05:02 Jasmina Rods Not Reportable 12/19/16 05:02 Platelet Estimate Consistent w auto 12/19/16 05:02 Clumped Platelets Not Reportable 12/19/16 05:02 Plt Clumps, EDTA Not Reportable 12/19/16 05:02 Large Platelets Not Reportable 12/19/16 05:02 Giant Platelets Not Reportable 12/19/16 05:02 Platelet Satelliting Not Reportable 12/19/16 05:02 Plt Morphology Comment Not Reportable 12/19/16 05:02 RBC Morphology Not Reportable 12/19/16 05:02 Dimorphic RBCs Not Reportable 12/19/16 05:02 Polychromasia Not Reportable 12/19/16 05:02 Hypochromasia Not Reportable 12/19/16 05:02 Poikilocytosis Not Reportable 12/19/16 05:02 Anisocytosis Not Reportable 12/19/16 05:02 Microcytosis Not Reportable 12/19/16 05:02 Macrocytosis Not Reportable 12/19/16 05:02 Spherocytes Not Reportable 12/19/16 05:02 Pappenheimer Bodies Not Reportable 12/19/16 05:02 Sickle Cells Not Reportable 12/19/16 05:02 Target Cells Few 12/19/16 05:02 Tear Drop Cells Not Reportable 12/19/16 05:02 Ovalocytes Not Reportable 12/19/16 05:02 Stomatocytes Rare 12/03/16 04:00 Helmet Cells Not Reportable 12/19/16 05:02 [place] Bodies Not Reportable 12/19/16 05:02 [place] Rings Not Reportable 12/19/16 05:02 [place] Cells Not Reportable 12/19/16 05:02 Bite Cells Not Reportable 12/19/16 05:02 Crenated Cell Not Reportable 12/19/16 05:02 Elliptocytes Not Reportable 12/19/16 05:02 Acanthocytes (Spur) Not Reportable 12/19/16 05:02 Rouleaux Not Reportable 12/19/16 05:02 Hemoglobin C Crystals Not Reportable 12/19/16 05:02 Schistocytes Not Reportable 12/19/16 05:02 Malaria parasites Not Reportable 12/19/16 05:02 ESR > 140.0 mm/Hr (0-20) 09/08/16 11:48 Jun Bodies Not Reportable 12/19/16 05:02 Hem Pathologist Commnt No 12/19/16 05:02 PT 15.4 Sec. (12.2-14.9) H 01/13/17 15:50 INR 1.16 (0.87-1.13) H 01/13/17 15:50 APTT 33.0 Sec. (24.2-36.6) 10/09/16 03:45 Thrombin Time 16.8 Sec. (15.1-19.6) 09/03/16 00:10 Fibrinogen 750 mg/dl (211-480) H 09/08/16 11:48 Lupus Anticoagulant see below 09/12/16 09:59 LA PTT Baseline See scanned report 09/12/16 09:59 dRVVT Confirm Interp Positive (Negative) H 09/12/16 09:59 dRVVT Screen 50:50 See scanned report 09/12/16 09:59 dRVVT Mix Interpret See scanned report 09/12/16 09:59 Protein C Antigen 122 % (70-140) 09/08/16 15:35 Free Protein S 97 % normal (50-147) 09/08/16 15:35 Total Protein S 109 % (70-140) 09/08/16 15:35 Antithrombin III Ag 100 % (80-120) 09/08/16 15:35 Heparin Anti-Xa, Unfract Negative (Negative) 09/29/16 13:35 Factor V Activity 182 % (65-150) H 09/08/16 15:35 POC ABG pH 7.449 (7.35-7.45) 01/19/17 15:32 ABG pH 7.450 pH Units (7.350-7.450) 12/05/16 Unknown POC ABG pCO2 33.1 (35-45) L 01/19/17 15:32 ABG pCO2 29.6 mm Hg 12/05/16 Unknown POC ABG pO2 76 (80-105) L 01/19/17 15:32 ABG pO2 75.2 mm Hg (80.0-90.0) L 12/05/16 Unknown POC ABG HCO3 23.0 01/19/17 15:32 ABG HCO3 20.1 mmol/L (20.0-26.0) 12/05/16 Unknown POC ABG Total CO2 24 01/19/17 15:32 POC ABG O2 Sat 96 01/19/17 15:32 ABG O2 Saturation 96.8 % (95.0-99.0) 12/05/16 Unknown ABG O2 Content 9.9 (0.0-44) 12/05/16 Unknown POC ABG Base Excess -1 01/19/17 15:32 ABG Base Excess -3.4 mmol/L (-2.0-3.0) L 12/05/16 Unknown ABG Hemoglobin 7.4 gm/dl (12.0-16.0) L 12/05/16 Unknown ABG Carboxyhemoglobin 1.8 % (0.0-5.0) 12/05/16 Unknown ABG Methemoglobin 0.6 % (0.0-1.5) 12/05/16 Unknown Oxyhemoglobin 94.5 % (95.0-99.0) L 12/05/16 Unknown FiO2 40 % 01/19/17 15:32 Sodium 139 mmol/L (137-145) 01/19/17 05:30 Potassium 3.7 mmol/L (3.6-5.0) 01/19/17 05:30 Chloride 98.3 mmol/L (98-107) 01/19/17 05:30 Carbon Dioxide 23 mmol/L (22-30) 01/19/17 05:30 Anion Gap 21 mmol/L 01/19/17 05:30 BUN 70 mg/dL (7-17) H 01/19/17 05:30 Creatinine 1.5 mg/dL (0.7-1.2) H 01/19/17 05:30 Estimated GFR 45 ml/min 01/19/17 05:30 BUN/Creatinine Ratio 47 % 01/19/17 05:30 Glucose 121 mg/dL (65-100) H 01/19/17 05:30 POC Glucose 156 (70-105) H 01/19/17 11:59 Osmolality 351 Mosm/kg 09/16/16 11:47 Lactic Acid 2.30 mmol/L (0.7-2.0) H* 01/09/17 08:22 Calcium 8.5 mg/dL (8.4-10.2) 01/19/17 05:30 Phosphorus 2.10 mg/dL (2.5-4.5) L D 01/19/17 05:30 Magnesium 2.00 mg/dL (1.7-2.3) 01/19/17 05:30 Total Bilirubin 0.40 mg/dL (0.1-1.2) 01/17/17 05:30 Direct Bilirubin 0.3 mg/dL (0-0.2) H 10/10/16 05:00 Indirect Bilirubin 0.1 mg/dL 10/10/16 05:00 AST 26 units/L (5-40) 01/17/17 05:30 ALT 35 units/L (7-56) 01/17/17 05:30 Alkaline Phosphatase 254 units/L (35-129) H 01/17/17 05:30 Ammonia 27.0 umol/L (25-60) 09/07/16 08:37 Lactate Dehydrogenase 170 units/L (91-180) 01/13/17 15:50 Total Creatine Kinase 121 units/L (30-135) 09/29/16 20:12 CK-MB (CK-2) < 1.0 ng/mL (0.0-4.0) 09/29/16 20:12 CK-MB (CK-2) Rel Index 0.8 (0-4) 09/29/16 20:12 Troponin T 0.204 ng/mL (0.00-0.029) H* 09/29/16 20:12 C-Reactive Protein 24.70 mg/dL (0.00-1.30) H 01/09/17 13:30 Total Protein 6.6 g/dL (6.3-8.2) 01/17/17 05:30 Albumin 1.3 g/dL (3.9-5) L 01/17/17 05:30 Albumin/Globulin Ratio 0.2 % 01/17/17 05:30 Prealbumin 0.110 g/L (0.200-0.400) L 12/29/16 05:15 Triglycerides 137 mg/dL (2-149) 09/29/16 20:12 Cholesterol 31 mg/dL (50-199) L 09/29/16 20:12 LDL Cholesterol Direct 4 mg/dL (50-130) L 09/29/16 20:12 HDL Cholesterol 3 mg/dL (40-59) L 09/29/16 20:12 Cholesterol/HDL Ratio 10.33 % 09/29/16 20:12 Angiotensin Convert Enz See scanned report 09/08/16 11:48 Renin 0.99 ng/mL/h (0.25-5.82) 10/07/16 10:56 Aldosterone <1 ng/dL () 10/07/16 10:56 Aldosterone/Renin Dir see below 10/07/16 10:56 Serotonin Release Assay See scanned report 09/29/16 13:35 TSH 1.010 mlU/mL (0.270-4.200) 09/07/16 08:37 HCG, Qual Negative (Negative) 09/03/16 00:10 Urine Color Yellow (Yellow) 11/05/16 13:09 Urine Turbidity Clear (Clear) 11/05/16 13:09 Urine pH 9.0 (5.0-7.0) H 11/05/16 13:09 Ur Specific [place] 1.011 (1.003-1.030) 11/05/16 13:09 Urine Protein 100 mg/dl mg/dL (Negative) 11/05/16 13:09 Urine Glucose (UA) Neg mg/dL (Negative) 11/05/16 13:09 Urine Ketones Neg mg/dL (Negative) 11/05/16 13:09 Urine Blood Neg (Negative) 11/05/16 13:09 Urine Nitrite Neg (Negative) 11/05/16 13:09 Urine Bilirubin Neg (Negative) 11/05/16 13:09 Urine Urobilinogen < 2.0 mg/dL (<2.0) 11/05/16 13:09 Ur Leukocyte Esterase Neg (Negative) 11/05/16 13:09 Urine WBC (Auto) 4.0 /HPF (0.0-6.0) 11/05/16 13:09 Urine RBC (Auto) 1.0 /HPF (0.0-6.0) 11/05/16 13:09 U Epithel Cells (Auto) 1.0 /HPF (0-13.0) 10/07/16 18:30 Urine Bacteria (Auto) 4+ /HPF (Negative) 11/05/16 13:09 Urine WBC Clumps 2+ /HPF 09/07/16 02:47 Hyaline Casts 4 /LPF 09/07/16 02:47 Urine Mucus Few /HPF 10/07/16 18:30 Urine Yeast (Budding) 3+ /HPF 10/07/16 18:30 Urine Eosinophils None seen (None Seen) 09/07/16 16:00 Urine Total Volume 950 11/12/16 10:18 Urine Creatinine 19.7 mg/dL (0.1-20.0) 11/12/16 10:18 Height (in) 65.0 inches 11/12/16 10:18 Weight (lb) 181.0 lbs 11/12/16 10:18 Creatinine Clearance 5 11/12/16 10:18 Urine Sodium 36 mEq/L 09/16/16 19:19 Urine Total Protein 16 mg/dL (5-11.8) H 09/16/16 19:19 Fluid Type Pleural 01/13/17 12:10 Fluid Color Yellow 01/13/17 12:10 Fluid Appearance Hazy 01/13/17 12:10 Fluid WBC 182 /mm3 01/13/17 12:10 Fluid RBC 41 /mm3 01/13/17 12:10 Fluid Seg Neutrophils 85.0 % 01/13/17 12:10 Fluid Lymphocytes 8.0 % 01/13/17 12:10 Fluid Reactive Lymphs 0 % 01/13/17 12:10 Fluid Monocytes 6.0 % 01/13/17 12:10 Fluid Eosinophils 1.0 % 01/13/17 12:10 Fluid Basophils 0 % 01/13/17 12:10 Fluid Total Protein 3.0 (15.0-45.0) L 01/13/17 12:10 Fluid LDH 1322 01/13/17 12:10 Fluid Comment Diff performed 01/13/17 12:10 Vancomycin Trough 2.3 ug/mL (5.0-20.0) L 09/21/16 13:00 Random Vancomycin 16.5 ug/mL (0-40.0) 11/28/16 09:45 Urine Opiates Screen Presumptive negative 09/03/16 15:11 Urine Methadone Screen Presumptive positive 09/03/16 15:11 Ur Barbiturates Screen Presumptive positive 09/03/16 15:11 Ur Phencyclidine Scrn Presumptive negative 09/03/16 15:11 Ur Amphetamines Screen Presumptive negative 09/03/16 15:11 U Benzodiazepines Scrn Presumptive negative 09/03/16 15:11 Urine Cocaine Screen Presumptive negative 09/03/16 15:11 U Marijuana (THC) Screen Presumptive positive 09/03/16 15:11 Drugs of Abuse Note Disclamer 09/03/16 15:11 Rheumatoid Factor 24 IU/ml (0-13) H 09/08/16 11:48 SAHIL Screen Negative (Negative) 09/07/16 09:20 Proteinase 3 (PR3) Ab <1.0 AI (<1.0) 09/07/16 09:20 Myeloperoxidase Ab <1.0 AI (<1.0) 09/07/16 09:20 Sjogren's Antibody <1.0 AI (<1.0) 09/08/16 15:35 Scl-70 Scleroderma Ab <1.0 AI (<1.0) 09/08/16 15:35 Centromere B Antibody <1.0 AI (<1.0) 09/08/16 12:02 Heparin-induced Plt Ab Negative (Negative) 09/29/16 13:35 UF Heparin High Dose 11 % Release 09/29/16 13:35 SUDHIR UFH Low Dose 0.1 6 % Release 09/29/16 13:35 SUDHIR UFH Low Dose 0.5 8 % Release 09/29/16 13:35 Cardiolipid IgG Ab <14 GPL (<=14) 09/12/16 09:59 Cardiolipid IgA Ab <11 APL (<=11) 09/12/16 09:59 Cardiolipid IgM Ab <12 MPL (<=12) 09/12/16 09:59 Complement C3 148 mg/dL (90-180) 09/07/16 09:20 Complement C4 58 mg/dL (16-47) H 09/07/16 09:20 RPR Nonreactive (Nonreactive) 09/08/16 11:48 Hepatitis A IgM Ab Non-reactive (NonReactive) 09/24/16 14:40 Hep Bs Antigen Non-reactive (Negative) 09/24/16 14:40 Hep B Core IgM Ab Non-reactive (NonReactive) 09/24/16 14:40 Hepatitis C Antibody Non-reactive (NonReactive) 09/24/16 14:40 HIV 1&2 Antibody Rapid Non react (Non React) 09/08/16 11:48 HIV P24 Antigen Non react (Non React) 09/08/16 11:48 Miscellaneous Test Flexitest 1 H 01/09/17 18:45 Blood Type A POSITIVE 01/08/17 10:37 Antibody Screen Negative 01/08/17 10:37 DELORIS Antibody Screen Negative 11/24/16 11:20 Crossmatch See Detail 01/08/17 10:37
[2017-01-19] MEDS ORDERED: TPN ADULT IV SCH (20:00)
[2017-01-20] MEDS: LOPRESSOR PO SCH ×4 (00:29→17:50)
[2017-01-20] MEDS: HumuLIN R SUB-Q SCH ×4 (00:29→17:48)
[2017-01-20] MEDS: DUONEB *Not for PRN Use IH SCH ×4 (02:18→19:30)
[2017-01-20 04:41] LABS: Calcium 9.1 mg/dL (8.4-10.2)
[2017-01-20] MEDS: APRESOLINE PO SCH ×3 (05:25→21:03)
[2017-01-20] MEDS: ALBURX 25% (ALBUMIN) IV SCH ×2 (05:26→17:48)
[2017-01-20] MEDS: REGLAN IV SCH ×3 (05:32→20:57)
[2017-01-20] MEDS: LASIX IV SCH ×3 (05:44→18:00)
--- NOTE | 2017-01-20 09:51 | Progress Note ---
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 * Tolerating TPN well at this time. Shall monitor her electrolytes * monitor for renal recovery * Rate control per cardiology * Dose medications for renal function * Avoid potential nephrotoxins * Approximately 220 mL of urine recorded yesterday. Continue IV albumin and Lasix for now Subjective Date of service: 01/20/17 Principal diagnosis: Acute resp failure on MVS; S/P Acute CVA; Acute Encephalopathy; JUANITA Interval history: Patient remains on the ventilator. Currently on 40% FiO2. Objective - Vital Signs Vital signs: Vital Signs - 12hr 01/19/17 01/19/17 01/19/17 22:00 22:15 22:30 Temperature Pulse Rate 114 H 107 H 108 H Pulse Rate [ Anterior Bilateral Throughout] Respiratory 25 H 21 19 Rate Respiratory Rate [Anterior Bilateral Throughout] Blood Pressure 105/61 96/69 101/68 O2 Sat by Pulse 93 90 97 Oximetry O2 Sat by Pulse Oximetry [ Assessment] 01/19/17 01/19/17 01/19/17 22:45 23:00 23:15 Temperature Pulse Rate 136 H 123 H 132 H Pulse Rate [ Anterior Bilateral Throughout] Respiratory 24 19 26 H Rate Respiratory Rate [Anterior Bilateral Throughout] Blood Pressure 99/58 99/58 94/55 O2 Sat by Pulse 94 91 92 Oximetry O2 Sat by Pulse Oximetry [ Assessment] 01/19/17 01/19/17 01/19/17 23:19 23:22 23:30 Temperature 100 F H Pulse Rate 128 H 126 H Pulse Rate [ Anterior Bilateral Throughout] Respiratory 23 19 Rate Respiratory Rate [Anterior Bilateral Throughout] Blood Pressure 94/55 95/52 O2 Sat by Pulse 93 92 Oximetry O2 Sat by Pulse Oximetry [ Assessment] 01/19/17 01/19/17 01/19/17 23:36 23:45 23:48 Temperature Pulse Rate 122 H 131 H 123 H Pulse Rate [ Anterior Bilateral Throughout] Respiratory 19 29 H 17 Rate Respiratory Rate [Anterior Bilateral Throughout] Blood Pressure 94/55 95/54 95/54 O2 Sat by Pulse 93 92 94 Oximetry O2 Sat by Pulse Oximetry [ Assessment] 01/20/17 01/20/17 01/20/17 00:00 00:15 00:29 Temperature Pulse Rate 94 H 113 H 112 H Pulse Rate [ Anterior Bilateral Throughout] Respiratory 21 17 Rate Respiratory Rate [Anterior Bilateral Throughout] Blood Pressure 88/52 95/49 102/58 O2 Sat by Pulse 100 94 Oximetry O2 Sat by Pulse 100 Oximetry [ Assessment] 01/20/17 01/20/17 01/20/17 00:30 00:45 01:00 Temperature Pulse Rate 135 H 131 H 124 H Pulse Rate [ Anterior Bilateral Throughout] Respiratory 18 25 H 24 Rate Respiratory Rate [Anterior Bilateral Throughout] Blood Pressure 99/48 89/52 88/52 O2 Sat by Pulse 95 99 100 Oximetry O2 Sat by Pulse Oximetry [ Assessment] 01/20/17 01/20/17 01/20/17 01:15 01:30 01:45 Temperature Pulse Rate 136 H 127 H 135 H Pulse Rate [ Anterior Bilateral Throughout] Respiratory 24 23 18 Rate Respiratory Rate [Anterior Bilateral Throughout] Blood Pressure 81/53 87/48 81/53 O2 Sat by Pulse 97 98 97 Oximetry O2 Sat by Pulse Oximetry [ Assessment] 01/20/17 01/20/17 01/20/17 02:00 02:01 02:15 Temperature Pulse Rate 123 H 136 H Pulse Rate [ 100 H Anterior Bilateral Throughout] Respiratory 15 26 H Rate Respiratory 18 Rate [Anterior Bilateral Throughout] Blood Pressure 81/53 87/48 O2 Sat by Pulse 100 100 Oximetry O2 Sat by Pulse Oximetry [ Assessment] 01/20/17 01/20/17 01/20/17 02:31 02:45 03:00 Temperature Pulse Rate 143 H 136 H 134 H Pulse Rate [ Anterior Bilateral Throughout] Respiratory 24 24 19 Rate Respiratory Rate [Anterior Bilateral Throughout] Blood Pressure 87/48 87/48 87/48 O2 Sat by Pulse 100 100 93 Oximetry O2 Sat by Pulse Oximetry [ Assessment] 01/20/17 01/20/17 01/20/17 03:15 03:19 03:31 Temperature 99.3 F Pulse Rate 139 H 109 H Pulse Rate [ Anterior Bilateral Throughout] Respiratory 18 16 Rate Respiratory Rate [Anterior Bilateral Throughout] Blood Pressure 87/48 87/48 O2 Sat by Pulse 100 92 Oximetry O2 Sat by Pulse Oximetry [ Assessment] 01/20/17 01/20/17 01/20/17 03:45 04:00 04:01 Temperature Pulse Rate 115 H 111 H 111 H Pulse Rate [ Anterior Bilateral Throughout] Respiratory 17 22 Rate Respiratory Rate [Anterior Bilateral Throughout] Blood Pressure 87/48 118/61 87/48 O2 Sat by Pulse 95 100 96 Oximetry O2 Sat by Pulse Oximetry [ Assessment] 01/20/17 01/20/17 01/20/17 04:15 04:31 04:45 Temperature Pulse Rate 115 H 111 H 114 H Pulse Rate [ Anterior Bilateral Throughout] Respiratory 24 19 21 Rate Respiratory Rate [Anterior Bilateral Throughout] Blood Pressure 87/48 87/48 87/48 O2 Sat by Pulse 97 94 94 Oximetry O2 Sat by Pulse Oximetry [ Assessment] 01/20/17 01/20/17 01/20/17 05:01 05:15 05:25 Temperature Pulse Rate 116 H 113 H 104 H Pulse Rate [ Anterior Bilateral Throughout] Respiratory 24 20 Rate Respiratory Rate [Anterior Bilateral Throughout] Blood Pressure 87/48 87/48 83/48 O2 Sat by Pulse 96 96 Oximetry O2 Sat by Pulse Oximetry [ Assessment] 01/20/17 01/20/17 01/20/17 05:26 05:31 05:45 Temperature 99.3 F Pulse Rate 103 H 109 H 113 H Pulse Rate [ Anterior Bilateral Throughout] Respiratory 19 28 H 20 Rate Respiratory Rate [Anterior Bilateral Throughout] Blood Pressure 120/62 87/48 118/61 O2 Sat by Pulse 82 L 100 Oximetry O2 Sat by Pulse Oximetry [ Assessment] 01/20/17 01/20/17 01/20/17 06:00 06:15 06:30 Temperature Pulse Rate 112 H 110 H 112 H Pulse Rate [ Anterior Bilateral Throughout] Respiratory 23 21 21 Rate Respiratory Rate [Anterior Bilateral Throughout] Blood Pressure 121/66 127/67 139/77 O2 Sat by Pulse 100 100 100 Oximetry O2 Sat by Pulse Oximetry [ Assessment] 01/20/17 01/20/17 01/20/17 06:45 07:00 07:15 Temperature Pulse Rate 108 H 103 H 110 H Pulse Rate [ Anterior Bilateral Throughout] Respiratory 16 16 22 Rate Respiratory Rate [Anterior Bilateral Throughout] Blood Pressure 120/68 126/67 130/69 O2 Sat by Pulse 100 100 100 Oximetry O2 Sat by Pulse Oximetry [ Assessment] 01/20/17 01/20/1717 07:30 07:45 08:00 Temperature 98.9 F Pulse Rate 141 H 103 H 98 H Pulse Rate [ Anterior Bilateral Throughout] Respiratory 17 18 20 Rate Respiratory Rate [Anterior Bilateral Throughout] Blood Pressure 140/62 136/64 136/64 O2 Sat by Pulse 96 100 98 Oximetry O2 Sat by Pulse Oximetry [ Assessment] 01/20/17 01/20/17 01/20/17 08:15 08:30 08:45 Temperature Pulse Rate 111 H 109 H 105 H Pulse Rate [ Anterior Bilateral Throughout] Respiratory 26 H 21 19 Rate Respiratory Rate [Anterior Bilateral Throughout] Blood Pressure 122/65 128/68 123/67 O2 Sat by Pulse 98 100 100 Oximetry O2 Sat by Pulse Oximetry [ Assessment] 01/20/17 01/20/17 09:34 09:48 Temperature Pulse Rate 103 H Pulse Rate [ 106 H 106 H Anterior Bilateral Throughout] Respiratory Rate Respiratory 24 16 Rate [Anterior Bilateral Throughout] Blood Pressure 126/67 O2 Sat by Pulse 100 Oximetry O2 Sat by Pulse Oximetry [ Assessment] - General Appearance General appearance: well-developed, well-nourished, appears stated age, intubated EENT: PERRL, mucous membranes moist Neck: other (tracheostomy tube in place. Connected to the ventilator) Respiratory: Present: Ronchi (bilateral scattered rhonchi) Cardiology: regular, normal heart rate, S1S2, no murmurs Gastrointestinal: normoactive bowel sounds, other (collection bag noted over her old PEG tube site) Integumentary: other (2+ edema) - Lab 01/15/17 12:45 01/20/17 04:00 Most recent lab results ABG pH 7.450 pH Units (7.350-7.450) 12/05/16 Unknown ABG pCO2 29.6 mm Hg 12/05/16 Unknown ABG pO2 75.2 mm Hg (80.0-90.0) L 12/05/16 Unknown ABG HCO3 20.1 mmol/L (20.0-26.0) 12/05/16 Unknown ABG O2 Saturation 96.8 % (95.0-99.0) 12/05/16 Unknown Calcium 9.1 mg/dL (8.4-10.2) 01/20/17 04:00 Phosphorus 2.40 mg/dL (2.5-4.5) L 01/20/17 04:00 Magnesium 2.00 mg/dL (1.7-2.3) 01/19/17 05:30 Urine Creatinine 19.7 mg/dL (0.1-20.0) 11/12/16 10:18 Urine Sodium 36 mEq/L 09/16/16 19:19 Urine Total Protein 16 mg/dL (5-11.8) H 09/16/16 19:19
[2017-01-20] MEDS: ROBINUL PO SCH ×3 (10:10→21:08)
[2017-01-20] MEDS: NACL 0.9% IV SCH (10:21)
[2017-01-20] MEDS: MERREM IV SCH (10:21)
[2017-01-20] MEDS: HEPARIN SUB-Q SCH ×3 (10:25→21:07)
[2017-01-20] MEDS: CORDARONE PO SCH ×3 (10:25→21:08)
[2017-01-20] MEDS: NORVASC PO SCH (10:25)
[2017-01-20] MEDS: PROTONIX FEEDTUBE SCH (10:26)
--- NOTE | 2017-01-20 10:36 | Progress Note ---
Assessment and Plan Acute Hypoxemic Respiratory Failure (now with exacerbation and back on MVS) Hypertension (unable to receive p.o. meds) Atrial Fibrillation with RVR s/p tracheostomy Acute encephalopathy s/p CVA Oropharyngeal dysphagia Enterococcal bacteremia sepsis syndrome Sacral Decubitus Ulcer (s/p surgical debridement) Anemia Obesity JUANITA now on hemodialysis Enteric Fistula - continue to hold tube feeds due to persistent emesis; continue reglan at 5mg IV q6h - will consider right chest tube placement for continuous suction and see if aids weaning (discussed with radiologist) - continue fentanyl patch for pain issues especially s/p debridement - continue wound care per WCT and RN's (she is s/p surgical debridement) - continue anti-infectives per ID recs - prn CRP & lactate levels if clinically indicated (Follow WBC also) - keep on with daily PSV trials and / or T-piece as tolerated (was on 03/07 prior to emesis today) - continue TPN administration - continue scopolamine for secretion control - continue to wean FiO2 for sats > 94% - continue bronchodilators and pulmonary toilet - VAP bundle addressed - continue prn IV metorolol - continue metoprolol and amlodipine (hold for hypotension) - continue to follow electrolytes and correct as necessary - continue GI & VTE prophylaxis - Continue flu & pneumovax per protocol - ethics consult placed and pending .....she remains critically ill on life sustaining interventions including MVS and at risk for further deterioration including ....34' CCT today without overlap ....care plan discussed at length during team rounds ...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 and this has intermittently been conveyed to family Subjective Date of service: 01/20/17 Principal diagnosis: Acute resp failure on MVS; S/P Acute CVA; Acute Encephalopathy; JUANITA Interval history: Patient is seen today for: Acute resp failure on MVS; S/P Acute CVA; Acute Encephalopathy; JUANITA Seen and examined at bedside; 24hour events reviewed; nursing and respiratory care staff consulted; no adverse overnight events reported to me; silvia remains critically ill and is still not tolerating weaning well; she is on PSV 18/5 and doing ok so far; no emesis or overt aspiration; persistent drainage from RLQ drain Objective Vital Signs - 12hr 01/19/17 01/19/17 01/19/17 22:45 23:00 23:15 Temperature Pulse Rate 136 H 123 H 132 H Pulse Rate [ Anterior Bilateral Throughout] Respiratory 24 19 26 H Rate Respiratory Rate [Anterior Bilateral Throughout] Blood Pressure 99/58 99/58 94/55 O2 Sat by Pulse 94 91 92 Oximetry O2 Sat by Pulse Oximetry [ Assessment] 01/19/17 01/19/17 01/19/17 23:19 23:22 23:30 Temperature 100 F H Pulse Rate 128 H 126 H Pulse Rate [ Anterior Bilateral Throughout] Respiratory 23 19 Rate Respiratory Rate [Anterior Bilateral Throughout] Blood Pressure 94/55 95/52 O2 Sat by Pulse 93 92 Oximetry O2 Sat by Pulse Oximetry [ Assessment] 01/19/17 01/19/17 01/19/17 23:36 23:45 23:48 Temperature Pulse Rate 122 H 131 H 123 H Pulse Rate [ Anterior Bilateral Throughout] Respiratory 19 29 H 17 Rate Respiratory Rate [Anterior Bilateral Throughout] Blood Pressure 94/55 95/54 95/54 O2 Sat by Pulse 93 92 94 Oximetry O2 Sat by Pulse Oximetry [ Assessment] 01/20/17 01/20/17 01/20/17 00:00 00:15 00:29 Temperature Pulse Rate 94 H 113 H 112 H Pulse Rate [ Anterior Bilateral Throughout] Respiratory 21 17 Rate Respiratory Rate [Anterior Bilateral Throughout] Blood Pressure 88/52 95/49 102/58 O2 Sat by Pulse 100 94 Oximetry O2 Sat by Pulse 100 Oximetry [ Assessment] 01/20/17 01/20/17 01/20/17 00:30 00:45 01:00 Temperature Pulse Rate 135 H 131 H 124 H Pulse Rate [ Anterior Bilateral Throughout] Respiratory 18 25 H 24 Rate Respiratory Rate [Anterior Bilateral Throughout] Blood Pressure 99/48 89/52 88/52 O2 Sat by Pulse 95 99 100 Oximetry O2 Sat by Pulse Oximetry [ Assessment] 01/20/17 01/20/17 01/20/17 01:15 01:30 01:45 Temperature Pulse Rate 136 H 127 H 135 H Pulse Rate [ Anterior Bilateral Throughout] Respiratory 24 23 18 Rate Respiratory Rate [Anterior Bilateral Throughout] Blood Pressure 81/53 87/48 81/53 O2 Sat by Pulse 97 98 97 Oximetry O2 Sat by Pulse Oximetry [ Assessment] 01/20/17 01/20/17 01/20/17 02:00 02:01 02:15 Temperature Pulse Rate 123 H 136 H Pulse Rate [ 100 H Anterior Bilateral Throughout] Respiratory 15 26 H Rate Respiratory 18 Rate [Anterior Bilateral Throughout] Blood Pressure 81/53 87/48 O2 Sat by Pulse 100 100 Oximetry O2 Sat by Pulse Oximetry [ Assessment] 01/20/17 01/20/17 01/20/17 02:31 02:45 03:00 Temperature Pulse Rate 143 H 136 H 134 H Pulse Rate [ Anterior Bilateral Throughout] Respiratory 24 24 19 Rate Respiratory Rate [Anterior Bilateral Throughout] Blood Pressure 87/48 87/48 87/48 O2 Sat by Pulse 100 100 93 Oximetry O2 Sat by Pulse Oximetry [ Assessment] 01/20/17 01/20/17 01/20/17 03:15 03:19 03:31 Temperature 99.3 F Pulse Rate 139 H 109 H Pulse Rate [ Anterior Bilateral Throughout] Respiratory 18 16 Rate Respiratory Rate [Anterior Bilateral Throughout] Blood Pressure 87/48 87/48 O2 Sat by Pulse 100 92 Oximetry O2 Sat by Pulse Oximetry [ Assessment] 01/20/17 01/20/17 01/20/17 03:45 04:00 04:01 Temperature Pulse Rate 115 H 111 H 111 H Pulse Rate [ Anterior Bilateral Throughout] Respiratory 17 22 Rate Respiratory Rate [Anterior Bilateral Throughout] Blood Pressure 87/48 118/61 87/48 O2 Sat by Pulse 95 100 96 Oximetry O2 Sat by Pulse Oximetry [ Assessment] 01/20/17 01/20/17 01/20/17 04:15 04:31 04:45 Temperature Pulse Rate 115 H 111 H 114 H Pulse Rate [ Anterior Bilateral Throughout] Respiratory 24 19 21 Rate Respiratory Rate [Anterior Bilateral Throughout] Blood Pressure 87/48 87/48 87/48 O2 Sat by Pulse 97 94 94 Oximetry O2 Sat by Pulse Oximetry [ Assessment] 01/20/17 01/20/17 01/20/17 05:01 05:15 05:25 Temperature Pulse Rate 116 H 113 H 104 H Pulse Rate [ Anterior Bilateral Throughout] Respiratory 24 20 Rate Respiratory Rate [Anterior Bilateral Throughout] Blood Pressure 87/48 87/48 83/48 O2 Sat by Pulse 96 96 Oximetry O2 Sat by Pulse Oximetry [ Assessment] 01/20/17 01/20/17 01/20/17 05:26 05:31 05:45 Temperature 99.3 F Pulse Rate 103 H 109 H 113 H Pulse Rate [ Anterior Bilateral Throughout] Respiratory 19 28 H 20 Rate Respiratory Rate [Anterior Bilateral Throughout] Blood Pressure 120/62 87/48 118/61 O2 Sat by Pulse 82 L 100 Oximetry O2 Sat by Pulse Oximetry [ Assessment] 01/20/17 01/20/17 01/20/17 06:00 06:15 06:30 Temperature Pulse Rate 112 H 110 H 112 H Pulse Rate [ Anterior Bilateral Throughout] Respiratory 23 21 21 Rate Respiratory Rate [Anterior Bilateral Throughout] Blood Pressure 121/66 127/67 139/77 O2 Sat by Pulse 100 100 100 Oximetry O2 Sat by Pulse Oximetry [ Assessment] 01/20/17 01/20/17 01/20/17 06:45 07:00 07:15 Temperature Pulse Rate 108 H 103 H 110 H Pulse Rate [ Anterior Bilateral Throughout] Respiratory 16 16 22 Rate Respiratory Rate [Anterior Bilateral Throughout] Blood Pressure 120/68 126/67 130/69 O2 Sat by Pulse 100 100 100 Oximetry O2 Sat by Pulse Oximetry [ Assessment] 01/20/17 01/20/17 01/20/17 07:30 07:45 08:00 Temperature 98.9 F Pulse Rate 141 H 103 H 98 H Pulse Rate [ Anterior Bilateral Throughout] Respiratory 17 18 20 Rate Respiratory Rate [Anterior Bilateral Throughout] Blood Pressure 140/62 136/64 136/64 O2 Sat by Pulse 96 100 98 Oximetry O2 Sat by Pulse Oximetry [ Assessment] 01/20/17 01/20/17 01/20/17 08:15 08:30 08:45 Temperature Pulse Rate 111 H 109 H 105 H Pulse Rate [ Anterior Bilateral Throughout] Respiratory 26 H 21 19 Rate Respiratory Rate [Anterior Bilateral Throughout] Blood Pressure 122/65 128/68 123/67 O2 Sat by Pulse 98 100 100 Oximetry O2 Sat by Pulse Oximetry [ Assessment] 01/20/17 01/20/17 01/20/17 09:34 09:48 09:56 Temperature Pulse Rate 103 H Pulse Rate [ 106 H 106 H Anterior Bilateral Throughout] Respiratory Rate Respiratory 24 16 Rate [Anterior Bilateral Throughout] Blood Pressure 126/67 O2 Sat by Pulse 100 Oximetry O2 Sat by Pulse 100 Oximetry [ Assessment] 01/20/17 01/20/17 09:58 10:25 Temperature Pulse Rate 107 H 110 H Pulse Rate [ Anterior Bilateral Throughout] Respiratory 36 H Rate Respiratory Rate [Anterior Bilateral Throughout] Blood Pressure 137/74 129/74 O2 Sat by Pulse 100 Oximetry O2 Sat by Pulse Oximetry [ Assessment] Constitutional: appears uncomfortable, other (not tracking) Eyes: non-icteric, other (tracheostomy tube in midline of neck) ENT: oropharynx moist, oropharyngeal exudate pre Neck: supple, no lymphadenopathy, no JVD, other (no thyromegaly) Effort: mildly labored Ascultation: Bilateral: diminished breath sounds (bases), rhonchi (and referred upper airway sounds) Percussion: Bilateral: dull (bases) Cardiovascular: regular rate and rhythm, other (no rubs / murmurs) Gastrointestinal: hypoactive bowel sounds, soft, non-tender, non-distended, other (RLQ & LUQ stomas with colostomy bags) Integumentary: decubitus ulcer (sacral; stage 4 s/p surgical debridement), other (no rash; no cellulitis; poor turgor) Extremities: no cyanosis, pulses normal, no ischemia or petechiae, edema (1+ bilaterally) Neurologic: pupils equal and round, unable to assess, other (encephalopathic) Psychiatric: other (unable to assess) CBC and BMP: 01/22/17 07:20 01/22/17 07:20 ABG, PT/INR, D-dimer: ABG POC ABG pH 7.449 (7.35-7.45) 01/19/17 15:32 ABG pH 7.450 pH Units (7.350-7.450) 12/05/16 Unknown POC ABG pCO2 33.1 (35-45) L 01/19/17 15:32 ABG pCO2 29.6 mm Hg 12/05/16 Unknown POC ABG pO2 76 (80-105) L 01/19/17 15:32 ABG pO2 75.2 mm Hg (80.0-90.0) L 12/05/16 Unknown POC ABG HCO3 23.0 01/19/17 15:32 POC ABG Total CO2 24 01/19/17 15:32 POC ABG O2 Sat 96 01/19/17 15:32 ABG O2 Saturation 96.8 % (95.0-99.0) 12/05/16 Unknown PT/INR, D-dimer PT 15.4 Sec. (12.2-14.9) H 01/13/17 15:50 INR 1.16 (0.87-1.13) H 01/13/17 15:50 Abnormal lab findings: Abnormal Labs 09/03/16 09/03/16 09/03/16 00:03 00:10 00:10 WBC 13.9 H RBC 5.95 H Hgb Hct 44.0 H MCV 74 L MCH 22 L MCHC RDW 17.5 H Plt Count Lymph % (Auto) [place] % (Auto) Lymph # [place] # Baso # Seg Neutrophils % Seg Neuts % (Manual) Lymphocytes % (Manual) 54.0 H Monocytes % (Manual) Eosinophils % (Manual) Basophils % (Manual) Nucleated RBC % Seg Neutrophils # Seg Neutrophils # Man Lymphocytes # (Manual) 7.5 H Monocytes # (Manual) Eosinophils # (Manual) Basophils # (Manual) PT INR Fibrinogen dRVVT Confirm Interp Factor V Activity POC ABG pH POC ABG pCO2 POC ABG pO2 ABG pO2 ABG HCO3 ABG Base Excess ABG Hemoglobin Oxyhemoglobin Sodium Potassium 2.8 L* Chloride Carbon Dioxide 21 L BUN Creatinine 1.7 H Glucose 159 H POC Glucose 177 H Lactic Acid Calcium Phosphorus Magnesium Direct Bilirubin AST ALT Alkaline Phosphatase Lactate Dehydrogenase Troponin T C-Reactive Protein Total Protein Albumin Prealbumin Triglycerides Cholesterol LDL Cholesterol Direct HDL Cholesterol Urine pH Urine WBC (Auto) Urine Creatinine Urine Total Protein Fluid Total Protein Vancomycin Trough Rheumatoid Factor Complement C4 Miscellaneous Test Crossmatch 09/03/16 09/03/16 09/03/16 12:12 15:07 16:20 WBC RBC Hgb Hct MCV MCH MCHC RDW Plt Count Lymph % (Auto) [place] % (Auto) Lymph # [place] # Baso # Seg Neutrophils % Seg Neuts % (Manual) Lymphocytes % (Manual) Monocytes % (Manual) Eosinophils % (Manual) Basophils % (Manual) Nucleated RBC % Seg Neutrophils # Seg Neutrophils # Man Lymphocytes # (Manual) Monocytes # (Manual) Eosinophils # (Manual) Basophils # (Manual) PT INR Fibrinogen dRVVT Confirm Interp Factor V Activity POC ABG pH 7.452 H POC ABG pCO2 POC ABG pO2 ABG pO2 ABG HCO3 ABG Base Excess ABG Hemoglobin Oxyhemoglobin Sodium Potassium Chloride Carbon Dioxide BUN Creatinine Glucose POC Glucose 178 H Lactic Acid Calcium Phosphorus 2.20 L Magnesium 1.60 L Direct Bilirubin AST ALT Alkaline Phosphatase Lactate Dehydrogenase Troponin T C-Reactive Protein Total Protein Albumin Prealbumin Triglycerides Cholesterol LDL Cholesterol Direct HDL Cholesterol Urine pH Urine WBC (Auto) Urine Creatinine Urine Total Protein Fluid Total Protein Vancomycin Trough Rheumatoid Factor Complement C4 Miscellaneous Test Crossmatch 09/03/16 09/03/16 09/03/16 17:57 17:58 23:50 WBC RBC Hgb Hct MCV MCH MCHC RDW Plt Count Lymph % (Auto) [place] % (Auto) Lymph # [place] # Baso # Seg Neutrophils % Seg Neuts % (Manual) Lymphocytes % (Manual) Monocytes % (Manual) Eosinophils % (Manual) Basophils % (Manual) Nucleated RBC % Seg Neutrophils # Seg Neutrophils # Man Lymphocytes # (Manual) Monocytes # (Manual) Eosinophils # (Manual) Basophils # (Manual) PT INR Fibrinogen dRVVT Confirm Interp Factor V Activity POC ABG pH POC ABG pCO2 POC ABG pO2 ABG pO2 ABG HCO3 ABG Base Excess ABG Hemoglobin Oxyhemoglobin Sodium Potassium Chloride Carbon Dioxide BUN Creatinine Glucose POC Glucose 162 H 145 H Lactic Acid Calcium Phosphorus 2.30 L Magnesium Direct Bilirubin AST ALT Alkaline Phosphatase Lactate Dehydrogenase Troponin T C-Reactive Protein Total Protein Albumin Prealbumin Triglycerides Cholesterol LDL Cholesterol Direct HDL Cholesterol Urine pH Urine WBC (Auto) Urine Creatinine Urine Total Protein Fluid Total Protein Vancomycin Trough Rheumatoid Factor Complement C4 Miscellaneous Test Crossmatch 09/04/16 09/04/16 09/04/16 03:31 03:31 05:42 WBC RBC Hgb 9.7 L D Hct MCV 72 L MCH 23 L MCHC RDW 17.5 H Plt Count Lymph % (Auto) 11.1 L [place] % (Auto) Lymph # [place] # Baso # Seg Neutrophils % 84.3 H Seg Neuts % (Manual) Lymphocytes % (Manual) Monocytes % (Manual) Eosinophils % (Manual) Basophils % (Manual) Nucleated RBC % Seg Neutrophils # 8.9 H Seg Neutrophils # Man Lymphocytes # (Manual) Monocytes # (Manual) Eosinophils # (Manual) Basophils # (Manual) PT INR Fibrinogen dRVVT Confirm Interp Factor V Activity POC ABG pH POC ABG pCO2 POC ABG pO2 ABG pO2 ABG HCO3 ABG Base Excess ABG Hemoglobin Oxyhemoglobin Sodium 135 L Potassium 2.9 L* Chloride 97.2 L Carbon Dioxide 19 L BUN Creatinine 1.7 H Glucose 170 H POC Glucose 152 H Lactic Acid Calcium Phosphorus Magnesium Direct Bilirubin AST ALT Alkaline Phosphatase Lactate Dehydrogenase Troponin T C-Reactive Protein Total Protein Albumin Prealbumin Triglycerides 160 H Cholesterol LDL Cholesterol Direct HDL Cholesterol 31 L Urine pH Urine WBC (Auto) Urine Creatinine Urine Total Protein Fluid Total Protein Vancomycin Trough Rheumatoid Factor Complement C4 Miscellaneous Test Crossmatch 09/04/16 09/04/16 09/04/16 11:34 17:46 23:29 WBC RBC Hgb Hct MCV MCH MCHC RDW Plt Count Lymph % (Auto) [place] % (Auto) Lymph # [place] # Baso # Seg Neutrophils % Seg Neuts % (Manual) Lymphocytes % (Manual) Monocytes % (Manual) Eosinophils % (Manual) Basophils % (Manual) Nucleated RBC % Seg Neutrophils # Seg Neutrophils # Man Lymphocytes # (Manual) Monocytes # (Manual) Eosinophils # (Manual) Basophils # (Manual) PT INR Fibrinogen dRVVT Confirm Interp Factor V Activity POC ABG pH POC ABG pCO2 POC ABG pO2 ABG pO2 ABG HCO3 ABG Base Excess ABG Hemoglobin Oxyhemoglobin Sodium Potassium Chloride Carbon Dioxide BUN Creatinine Glucose POC Glucose 165 H 210 H 139 H Lactic Acid Calcium Phosphorus Magnesium Direct Bilirubin AST ALT Alkaline Phosphatase Lactate Dehydrogenase Troponin T C-Reactive Protein Total Protein Albumin Prealbumin Triglycerides Cholesterol LDL Cholesterol Direct HDL Cholesterol Urine pH Urine WBC (Auto) Urine Creatinine Urine Total Protein Fluid Total Protein Vancomycin Trough Rheumatoid Factor Complement C4 Miscellaneous Test Crossmatch 09/05/16 09/05/16 09/05/16 04:05 04:05 05:38 WBC RBC Hgb Hct MCV 76 L D MCH 23 L MCHC RDW 17.8 H Plt Count Lymph % (Auto) [place] % (Auto) Lymph # [place] # Baso # Seg Neutrophils % Seg Neuts % (Manual) Lymphocytes % (Manual) Monocytes % (Manual) Eosinophils % (Manual) Basophils % (Manual) Nucleated RBC % Seg Neutrophils # Seg Neutrophils # Man Lymphocytes # (Manual) Monocytes # (Manual) Eosinophils # (Manual) Basophils # (Manual) PT INR Fibrinogen dRVVT Confirm Interp Factor V Activity POC ABG pH POC ABG pCO2 POC ABG pO2 ABG pO2 ABG HCO3 ABG Base Excess ABG Hemoglobin Oxyhemoglobin Sodium 134 L Potassium Chloride Carbon Dioxide 18 L BUN Creatinine 1.8 H Glucose 192 H POC Glucose 175 H Lactic Acid Calcium Phosphorus Magnesium Direct Bilirubin AST ALT Alkaline Phosphatase Lactate Dehydrogenase Troponin T C-Reactive Protein Total Protein Albumin Prealbumin Triglycerides Cholesterol LDL Cholesterol Direct HDL Cholesterol Urine pH Urine WBC (Auto) Urine Creatinine Urine Total Protein Fluid Total Protein Vancomycin Trough Rheumatoid Factor Complement C4 Miscellaneous Test Crossmatch 09/05/16 09/05/16 09/05/16 11:38 17:48 23:22 WBC RBC Hgb Hct MCV MCH MCHC RDW Plt Count Lymph % (Auto) [place] % (Auto) Lymph # [place] # Baso # Seg Neutrophils % Seg Neuts % (Manual) Lymphocytes % (Manual) Monocytes % (Manual) Eosinophils % (Manual) Basophils % (Manual) Nucleated RBC % Seg Neutrophils # Seg Neutrophils # Man Lymphocytes # (Manual) Monocytes # (Manual) Eosinophils # (Manual) Basophils # (Manual) PT INR Fibrinogen dRVVT Confirm Interp Factor V Activity POC ABG pH POC ABG pCO2 POC ABG pO2 ABG pO2 ABG HCO3 ABG Base Excess ABG Hemoglobin Oxyhemoglobin Sodium Potassium Chloride Carbon Dioxide BUN Creatinine Glucose POC Glucose 164 H 186 H 195 H Lactic Acid Calcium Phosphorus Magnesium Direct Bilirubin AST ALT Alkaline Phosphatase Lactate Dehydrogenase Troponin T C-Reactive Protein Total Protein Albumin Prealbumin Triglycerides Cholesterol LDL Cholesterol Direct HDL Cholesterol Urine pH Urine WBC (Auto) Urine Creatinine Urine Total Protein Fluid Total Protein Vancomycin Trough Rheumatoid Factor Complement C4 Miscellaneous Test Crossmatch 09/06/16 09/06/16 09/06/16 04:12 05:59 07:32 WBC RBC Hgb Hct MCV MCH MCHC RDW Plt Count Lymph % (Auto) [place] % (Auto) Lymph # [place] # Baso # Seg Neutrophils % Seg Neuts % (Manual) Lymphocytes % (Manual) Monocytes % (Manual) Eosinophils % (Manual) Basophils % (Manual) Nucleated RBC % Seg Neutrophils # Seg Neutrophils # Man Lymphocytes # (Manual) Monocytes # (Manual) Eosinophils # (Manual) Basophils # (Manual) PT INR Fibrinogen dRVVT Confirm Interp Factor V Activity POC ABG pH 7.514 H POC ABG pCO2 29.1 L POC ABG pO2 72 L ABG pO2 ABG HCO3 ABG Base Excess ABG Hemoglobin Oxyhemoglobin Sodium 133 L Potassium 3.4 L Chloride 94.9 L Carbon Dioxide 19 L BUN 30 H Creatinine 2.1 H Glucose 139 H POC Glucose 146 H Lactic Acid Calcium Phosphorus Magnesium Direct Bilirubin AST ALT Alkaline Phosphatase Lactate Dehydrogenase Troponin T C-Reactive Protein Total Protein Albumin Prealbumin Triglycerides Cholesterol LDL Cholesterol Direct HDL Cholesterol Urine pH Urine WBC (Auto) Urine Creatinine Urine Total Protein Fluid Total Protein Vancomycin Trough Rheumatoid Factor Complement C4 Miscellaneous Test Crossmatch 09/06/16 09/06/16 09/06/16 11:57 17:58 19:02 WBC RBC Hgb Hct MCV MCH MCHC RDW Plt Count Lymph % (Auto) [place] % (Auto) Lymph # [place] # Baso # Seg Neutrophils % Seg Neuts % (Manual) Lymphocytes % (Manual) Monocytes % (Manual) Eosinophils % (Manual) Basophils % (Manual) Nucleated RBC % Seg Neutrophils # Seg Neutrophils # Man Lymphocytes # (Manual) Monocytes # (Manual) Eosinophils # (Manual) Basophils # (Manual) PT INR Fibrinogen dRVVT Confirm Interp Factor V Activity POC ABG pH 7.465 H POC ABG pCO2 32.0 L POC ABG pO2 ABG pO2 ABG HCO3 ABG Base Excess ABG Hemoglobin Oxyhemoglobin Sodium Potassium Chloride Carbon Dioxide BUN Creatinine Glucose POC Glucose 165 H 160 H Lactic Acid Calcium Phosphorus Magnesium Direct Bilirubin AST ALT Alkaline Phosphatase Lactate Dehydrogenase Troponin T C-Reactive Protein Total Protein Albumin Prealbumin Triglycerides Cholesterol LDL Cholesterol Direct HDL Cholesterol Urine pH Urine WBC (Auto) Urine Creatinine Urine Total Protein Fluid Total Protein Vancomycin Trough Rheumatoid Factor Complement C4 Miscellaneous Test Crossmatch 09/06/16 09/07/16 09/07/16 23:45 02:47 02:47 WBC RBC Hgb Hct MCV MCH MCHC RDW Plt Count Lymph % (Auto) [place] % (Auto) Lymph # [place] # Baso # Seg Neutrophils % Seg Neuts % (Manual) Lymphocytes % (Manual) Monocytes % (Manual) Eosinophils % (Manual) Basophils % (Manual) Nucleated RBC % Seg Neutrophils # Seg Neutrophils # Man Lymphocytes # (Manual) Monocytes # (Manual) Eosinophils # (Manual) Basophils # (Manual) PT INR Fibrinogen dRVVT Confirm Interp Factor V Activity POC ABG pH POC ABG pCO2 POC ABG pO2 ABG pO2 ABG HCO3 ABG Base Excess ABG Hemoglobin Oxyhemoglobin Sodium Potassium Chloride Carbon Dioxide BUN Creatinine Glucose POC Glucose 204 H Lactic Acid Calcium Phosphorus Magnesium Direct Bilirubin AST ALT Alkaline Phosphatase Lactate Dehydrogenase Troponin T C-Reactive Protein Total Protein Albumin Prealbumin Triglycerides Cholesterol LDL Cholesterol Direct HDL Cholesterol Urine pH Urine WBC (Auto) 68.0 H Urine Creatinine 106.1 H Urine Total Protein Fluid Total Protein Vancomycin Trough Rheumatoid Factor Complement C4 Miscellaneous Test Crossmatch 09/07/16 09/07/16 09/07/16 04:50 06:19 06:39 WBC RBC Hgb Hct MCV MCH MCHC RDW Plt Count Lymph % (Auto) [place] % (Auto) Lymph # [place] # Baso # Seg Neutrophils % Seg Neuts % (Manual) Lymphocytes % (Manual) Monocytes % (Manual) Eosinophils % (Manual) Basophils % (Manual) Nucleated RBC % Seg Neutrophils # Seg Neutrophils # Man Lymphocytes # (Manual) Monocytes # (Manual) Eosinophils # (Manual) Basophils # (Manual) PT INR Fibrinogen dRVVT Confirm Interp Factor V Activity POC ABG pH 7.457 H POC ABG pCO2 32.1 L POC ABG pO2 76 L ABG pO2 ABG HCO3 ABG Base Excess ABG Hemoglobin Oxyhemoglobin Sodium 132 L Potassium Chloride 94.7 L Carbon Dioxide BUN 53 H Creatinine 2.9 H Glucose 151 H POC Glucose 149 H Lactic Acid Calcium Phosphorus Magnesium Direct Bilirubin AST ALT Alkaline Phosphatase Lactate Dehydrogenase Troponin T C-Reactive Protein Total Protein Albumin Prealbumin Triglycerides Cholesterol LDL Cholesterol Direct HDL Cholesterol Urine pH Urine WBC (Auto) Urine Creatinine Urine Total Protein Fluid Total Protein Vancomycin Trough Rheumatoid Factor Complement C4 Miscellaneous Test Crossmatch 09/07/16 09/07/16 09/07/16 09:20 11:43 11:43 WBC 19.4 H RBC Hgb 8.3 L Hct 26.4 L D MCV 72 L D MCH 22 L MCHC RDW 17.9 H Plt Count Lymph % (Auto) 8.5 L [place] % (Auto) Lymph # [place] # 1.0 H Baso # Seg Neutrophils % 85.8 H Seg Neuts % (Manual) Lymphocytes % (Manual) Monocytes % (Manual) Eosinophils % (Manual) Basophils % (Manual) Nucleated RBC % Seg Neutrophils # 16.6 H Seg Neutrophils # Man Lymphocytes # (Manual) Monocytes # (Manual) Eosinophils # (Manual) Basophils # (Manual) PT INR Fibrinogen dRVVT Confirm Interp Factor V Activity POC ABG pH POC ABG pCO2 POC ABG pO2 ABG pO2 ABG HCO3 ABG Base Excess ABG Hemoglobin Oxyhemoglobin Sodium 134 L Potassium Chloride 97.2 L Carbon Dioxide 20 L BUN 58 H Creatinine 2.9 H Glucose 147 H POC Glucose Lactic Acid Calcium Phosphorus 2.40 L Magnesium 2.40 H Direct Bilirubin AST ALT Alkaline Phosphatase Lactate Dehydrogenase Troponin T C-Reactive Protein Total Protein 5.8 L Albumin 2.2 L Prealbumin Triglycerides Cholesterol LDL Cholesterol Direct HDL Cholesterol Urine pH Urine WBC (Auto) Urine Creatinine Urine Total Protein Fluid Total Protein Vancomycin Trough Rheumatoid Factor Complement C4 58 H Miscellaneous Test Crossmatch 09/07/16 09/07/16 09/07/16 11:50 16:00 17:31 WBC RBC Hgb Hct MCV MCH MCHC RDW Plt Count Lymph % (Auto) [place] % (Auto) Lymph # [place] # Baso # Seg Neutrophils % Seg Neuts % (Manual) Lymphocytes % (Manual) Monocytes % (Manual) Eosinophils % (Manual) Basophils % (Manual) Nucleated RBC % Seg Neutrophils # Seg Neutrophils # Man Lymphocytes # (Manual) Monocytes # (Manual) Eosinophils # (Manual) Basophils # (Manual) PT INR Fibrinogen dRVVT Confirm Interp Factor V Activity POC ABG pH POC ABG pCO2 POC ABG pO2 158 H ABG pO2 ABG HCO3 ABG Base Excess ABG Hemoglobin Oxyhemoglobin Sodium Potassium Chloride Carbon Dioxide BUN Creatinine Glucose POC Glucose 175 H Lactic Acid Calcium Phosphorus Magnesium Direct Bilirubin AST ALT Alkaline Phosphatase Lactate Dehydrogenase Troponin T C-Reactive Protein Total Protein Albumin Prealbumin Triglycerides Cholesterol LDL Cholesterol Direct HDL Cholesterol Urine pH Urine WBC (Auto) Urine Creatinine 66.3 H Urine Total Protein Fluid Total Protein Vancomycin Trough Rheumatoid Factor Complement C4 Miscellaneous Test Crossmatch 09/07/16 09/08/16 09/08/16 23:50 05:46 06:18 WBC 17.8 H RBC 3.58 L Hgb 8.1 L Hct 25.5 L MCV 71 L MCH 23 L MCHC RDW 18.4 H Plt Count Lymph % (Auto) [place] % (Auto) Lymph # [place] # Baso # Seg Neutrophils % Seg Neuts % (Manual) 92.0 H Lymphocytes % (Manual) 6.0 L Monocytes % (Manual) Eosinophils % (Manual) Basophils % (Manual) Nucleated RBC % Seg Neutrophils # Seg Neutrophils # Man 16.4 H Lymphocytes # (Manual) 1.1 L Monocytes # (Manual) Eosinophils # (Manual) Basophils # (Manual) PT INR Fibrinogen dRVVT Confirm Interp Factor V Activity POC ABG pH POC ABG pCO2 34.3 L POC ABG pO2 71 L ABG pO2 ABG HCO3 ABG Base Excess ABG Hemoglobin Oxyhemoglobin Sodium Potassium Chloride Carbon Dioxide BUN Creatinine Glucose POC Glucose 216 H Lactic Acid Calcium Phosphorus Magnesium Direct Bilirubin AST ALT Alkaline Phosphatase Lactate Dehydrogenase Troponin T C-Reactive Protein Total Protein Albumin Prealbumin Triglycerides Cholesterol LDL Cholesterol Direct HDL Cholesterol Urine pH Urine WBC (Auto) Urine Creatinine Urine Total Protein Fluid Total Protein Vancomycin Trough Rheumatoid Factor Complement C4 Miscellaneous Test Crossmatch 09/08/16 09/08/16 09/08/16 06:18 06:51 10:55 WBC RBC Hgb Hct MCV MCH MCHC RDW Plt Count Lymph % (Auto) [place] % (Auto) Lymph # [place] # Baso # Seg Neutrophils % Seg Neuts % (Manual) Lymphocytes % (Manual) Monocytes % (Manual) Eosinophils % (Manual) Basophils % (Manual) Nucleated RBC % Seg Neutrophils # Seg Neutrophils # Man Lymphocytes # (Manual) Monocytes # (Manual) Eosinophils # (Manual) Basophils # (Manual) PT INR Fibrinogen dRVVT Confirm Interp Factor V Activity POC ABG pH POC ABG pCO2 POC ABG pO2 ABG pO2 ABG HCO3 ABG Base Excess ABG Hemoglobin Oxyhemoglobin Sodium 133 L Potassium Chloride 96.9 L Carbon Dioxide 20 L BUN 63 H Creatinine 2.7 H Glucose 195 H POC Glucose 204 H 169 H Lactic Acid Calcium Phosphorus Magnesium Direct Bilirubin AST ALT Alkaline Phosphatase Lactate Dehydrogenase Troponin T C-Reactive Protein Total Protein Albumin Prealbumin Triglycerides Cholesterol LDL Cholesterol Direct HDL Cholesterol Urine pH Urine WBC (Auto) Urine Creatinine Urine Total Protein Fluid Total Protein Vancomycin Trough Rheumatoid Factor Complement C4 Miscellaneous Test Crossmatch 09/08/16 09/08/16 09/08/16 11:48 11:48 11:48 WBC RBC Hgb Hct MCV MCH MCHC RDW Plt Count Lymph % (Auto) [place] % (Auto) Lymph # [place] # Baso # Seg Neutrophils % Seg Neuts % (Manual) Lymphocytes % (Manual) Monocytes % (Manual) Eosinophils % (Manual) Basophils % (Manual) Nucleated RBC % Seg Neutrophils # Seg Neutrophils # Man Lymphocytes # (Manual) Monocytes # (Manual) Eosinophils # (Manual) Basophils # (Manual) PT INR Fibrinogen 750 H dRVVT Confirm Interp Factor V Activity POC ABG pH POC ABG pCO2 POC ABG pO2 ABG pO2 ABG HCO3 ABG Base Excess ABG Hemoglobin Oxyhemoglobin Sodium Potassium Chloride Carbon Dioxide BUN Creatinine Glucose POC Glucose Lactic Acid Calcium Phosphorus Magnesium Direct Bilirubin AST ALT Alkaline Phosphatase Lactate Dehydrogenase Troponin T C-Reactive Protein 15.70 H Total Protein Albumin Prealbumin Triglycerides Cholesterol LDL Cholesterol Direct HDL Cholesterol Urine pH Urine WBC (Auto) Urine Creatinine Urine Total Protein Fluid Total Protein Vancomycin Trough Rheumatoid Factor 24 H Complement C4 Miscellaneous Test Crossmatch 09/08/16 09/08/16 09/09/16 15:35 18:25 00:24 WBC RBC Hgb Hct MCV MCH MCHC RDW Plt Count Lymph % (Auto) [place] % (Auto) Lymph # [place] # Baso # Seg Neutrophils % Seg Neuts % (Manual) Lymphocytes % (Manual) Monocytes % (Manual) Eosinophils % (Manual) Basophils % (Manual) Nucleated RBC % Seg Neutrophils # Seg Neutrophils # Man Lymphocytes # (Manual) Monocytes # (Manual) Eosinophils # (Manual) Basophils # (Manual) PT INR Fibrinogen dRVVT Confirm Interp Factor V Activity 182 H POC ABG pH POC ABG pCO2 POC ABG pO2 ABG pO2 ABG HCO3 ABG Base Excess ABG Hemoglobin Oxyhemoglobin Sodium Potassium Chloride Carbon Dioxide BUN Creatinine Glucose POC Glucose 184 H 216 H Lactic Acid Calcium Phosphorus Magnesium Direct Bilirubin AST ALT Alkaline Phosphatase Lactate Dehydrogenase Troponin T C-Reactive Protein Total Protein Albumin Prealbumin Triglycerides Cholesterol LDL Cholesterol Direct HDL Cholesterol Urine pH Urine WBC (Auto) Urine Creatinine Urine Total Protein Fluid Total Protein Vancomycin Trough Rheumatoid Factor Complement C4 Miscellaneous Test Crossmatch 09/09/16 09/09/16 09/09/16 03:00 03:00 04:04 WBC 27.9 H RBC Hgb 8.7 L Hct 28.1 L MCV 72 L MCH 22 L MCHC RDW 18.4 H Plt Count 485 H Lymph % (Auto) [place] % (Auto) Lymph # [place] # Baso # Seg Neutrophils % Seg Neuts % (Manual) 77.0 H Lymphocytes % (Manual) 9.0 L Monocytes % (Manual) Eosinophils % (Manual) Basophils % (Manual) Nucleated RBC % Seg Neutrophils # Seg Neutrophils # Man 21.5 H Lymphocytes # (Manual) Monocytes # (Manual) 2.0 H Eosinophils # (Manual) Basophils # (Manual) PT INR Fibrinogen dRVVT Confirm Interp Factor V Activity POC ABG pH POC ABG pCO2 POC ABG pO2 121 H ABG pO2 ABG HCO3 ABG Base Excess ABG Hemoglobin Oxyhemoglobin Sodium 135 L Potassium Chloride 96.3 L Carbon Dioxide 21 L BUN 83 H Creatinine 3.0 H Glucose 135 H POC Glucose Lactic Acid Calcium Phosphorus Magnesium Direct Bilirubin AST ALT Alkaline Phosphatase Lactate Dehydrogenase Troponin T C-Reactive Protein Total Protein Albumin Prealbumin Triglycerides Cholesterol LDL Cholesterol Direct HDL Cholesterol Urine pH Urine WBC (Auto) Urine Creatinine Urine Total Protein Fluid Total Protein Vancomycin Trough Rheumatoid Factor Complement C4 Miscellaneous Test Crossmatch 09/09/16 09/09/16 09/09/16 05:41 11:55 14:13 WBC RBC Hgb Hct MCV MCH MCHC RDW Plt Count Lymph % (Auto) [place] % (Auto) Lymph # [place] # Baso # Seg Neutrophils % Seg Neuts % (Manual) Lymphocytes % (Manual) Monocytes % (Manual) Eosinophils % (Manual) Basophils % (Manual) Nucleated RBC % Seg Neutrophils # Seg Neutrophils # Man Lymphocytes # (Manual) Monocytes # (Manual) Eosinophils # (Manual) Basophils # (Manual) PT INR Fibrinogen dRVVT Confirm Interp Factor V Activity POC ABG pH POC ABG pCO2 POC ABG pO2 ABG pO2 ABG HCO3 ABG Base Excess ABG Hemoglobin Oxyhemoglobin Sodium Potassium Chloride Carbon Dioxide BUN Creatinine Glucose POC Glucose 155 H 186 H Lactic Acid Calcium Phosphorus Magnesium Direct Bilirubin AST ALT Alkaline Phosphatase Lactate Dehydrogenase Troponin T C-Reactive Protein Total Protein Albumin Prealbumin Triglycerides Cholesterol LDL Cholesterol Direct HDL Cholesterol Urine pH Urine WBC (Auto) 25.0 H Urine Creatinine Urine Total Protein Fluid Total Protein Vancomycin Trough Rheumatoid Factor Complement C4 Miscellaneous Test Crossmatch 09/09/16 09/09/16 09/10/16 17:33 23:13 05:09 WBC RBC Hgb Hct MCV MCH MCHC RDW Plt Count Lymph % (Auto) [place] % (Auto) Lymph # [place] # Baso # Seg Neutrophils % Seg Neuts % (Manual) Lymphocytes % (Manual) Monocytes % (Manual) Eosinophils % (Manual) Basophils % (Manual) Nucleated RBC % Seg Neutrophils # Seg Neutrophils # Man Lymphocytes # (Manual) Monocytes # (Manual) Eosinophils # (Manual) Basophils # (Manual) PT INR Fibrinogen dRVVT Confirm Interp Factor V Activity POC ABG pH POC ABG pCO2 POC ABG pO2 74 L ABG pO2 ABG HCO3 ABG Base Excess ABG Hemoglobin Oxyhemoglobin Sodium Potassium Chloride Carbon Dioxide BUN Creatinine Glucose POC Glucose 211 H 215 H Lactic Acid Calcium Phosphorus Magnesium Direct Bilirubin AST ALT Alkaline Phosphatase Lactate Dehydrogenase Troponin T C-Reactive Protein Total Protein Albumin Prealbumin Triglycerides Cholesterol LDL Cholesterol Direct HDL Cholesterol Urine pH Urine WBC (Auto) Urine Creatinine Urine Total Protein Fluid Total Protein Vancomycin Trough Rheumatoid Factor Complement C4 Miscellaneous Test Crossmatch 09/10/16 09/10/16 09/10/16 05:17 05:17 11:31 WBC 15.8 H RBC 3.25 L Hgb 7.3 L Hct 22.9 L MCV 71 L MCH 23 L MCHC RDW 18.4 H Plt Count Lymph % (Auto) [place] % (Auto) Lymph # [place] # Baso # Seg Neutrophils % Seg Neuts % (Manual) 91.0 H Lymphocytes % (Manual) 4.0 L Monocytes % (Manual) Eosinophils % (Manual) Basophils % (Manual) Nucleated RBC % Seg Neutrophils # Seg Neutrophils # Man 14.4 H Lymphocytes # (Manual) 0.6 L Monocytes # (Manual) Eosinophils # (Manual) Basophils # (Manual) PT INR Fibrinogen dRVVT Confirm Interp Factor V Activity POC ABG pH POC ABG pCO2 POC ABG pO2 ABG pO2 ABG HCO3 ABG Base Excess ABG Hemoglobin Oxyhemoglobin Sodium Potassium Chloride Carbon Dioxide 21 L BUN 93 H Creatinine 2.9 H Glucose 146 H POC Glucose 188 H Lactic Acid Calcium 8.1 L Phosphorus Magnesium Direct Bilirubin AST ALT Alkaline Phosphatase Lactate Dehydrogenase Troponin T C-Reactive Protein Total Protein Albumin Prealbumin Triglycerides Cholesterol LDL Cholesterol Direct HDL Cholesterol Urine pH Urine WBC (Auto) Urine Creatinine Urine Total Protein Fluid Total Protein Vancomycin Trough Rheumatoid Factor Complement C4 Miscellaneous Test Crossmatch 09/10/16 09/10/16 09/10/16 13:17 17:20 23:32 WBC RBC Hgb Hct MCV MCH MCHC RDW Plt Count Lymph % (Auto) [place] % (Auto) Lymph # [place] # Baso # Seg Neutrophils % Seg Neuts % (Manual) Lymphocytes % (Manual) Monocytes % (Manual) Eosinophils % (Manual) Basophils % (Manual) Nucleated RBC % Seg Neutrophils # Seg Neutrophils # Man Lymphocytes # (Manual) Monocytes # (Manual) Eosinophils # (Manual) Basophils # (Manual) PT INR Fibrinogen dRVVT Confirm Interp Factor V Activity POC ABG pH POC ABG pCO2 POC ABG pO2 ABG pO2 ABG HCO3 ABG Base Excess ABG Hemoglobin Oxyhemoglobin Sodium Potassium Chloride Carbon Dioxide BUN Creatinine Glucose POC Glucose 199 H 186 H Lactic Acid Calcium Phosphorus Magnesium Direct Bilirubin AST ALT Alkaline Phosphatase Lactate Dehydrogenase Troponin T C-Reactive Protein Total Protein Albumin Prealbumin Triglycerides Cholesterol LDL Cholesterol Direct HDL Cholesterol Urine pH Urine WBC (Auto) Urine Creatinine Urine Total Protein Fluid Total Protein Vancomycin Trough Rheumatoid Factor Complement C4 Miscellaneous Test Crossmatch See Detail 09/11/16 09/11/16 09/11/16 05:10 05:10 05:17 WBC 28.4 H RBC Hgb 9.2 L Hct 29.3 L D MCV 73 L MCH 23 L MCHC RDW 18.9 H Plt Count 452 H Lymph % (Auto) [place] % (Auto) Lymph # [place] # Baso # Seg Neutrophils % Seg Neuts % (Manual) 89.5 H Lymphocytes % (Manual) 2.0 L Monocytes % (Manual) Eosinophils % (Manual) Basophils % (Manual) Nucleated RBC % Seg Neutrophils # Seg Neutrophils # Man 25.4 H Lymphocytes # (Manual) 0.6 L Monocytes # (Manual) 1.3 H Eosinophils # (Manual) Basophils # (Manual) PT INR Fibrinogen dRVVT Confirm Interp Factor V Activity POC ABG pH POC ABG pCO2 POC ABG pO2 ABG pO2 ABG HCO3 ABG Base Excess ABG Hemoglobin Oxyhemoglobin Sodium 136 L Potassium Chloride Carbon Dioxide 18 L BUN 107 H Creatinine 2.6 H Glucose 187 H POC Glucose 230 H Lactic Acid Calcium 8.3 L Phosphorus Magnesium Direct Bilirubin AST ALT Alkaline Phosphatase Lactate Dehydrogenase Troponin T C-Reactive Protein Total Protein Albumin Prealbumin Triglycerides Cholesterol LDL Cholesterol Direct HDL Cholesterol Urine pH Urine WBC (Auto) Urine Creatinine Urine Total Protein Fluid Total Protein Vancomycin Trough Rheumatoid Factor Complement C4 Miscellaneous Test Crossmatch 09/11/16 09/11/16 09/11/16 05:55 12:02 17:32 WBC RBC Hgb Hct MCV MCH MCHC RDW Plt Count Lymph % (Auto) [place] % (Auto) Lymph # [place] # Baso # Seg Neutrophils % Seg Neuts % (Manual) Lymphocytes % (Manual) Monocytes % (Manual) Eosinophils % (Manual) Basophils % (Manual) Nucleated RBC % Seg Neutrophils # Seg Neutrophils # Man Lymphocytes # (Manual) Monocytes # (Manual) Eosinophils # (Manual) Basophils # (Manual) PT INR Fibrinogen dRVVT Confirm Interp Factor V Activity POC ABG pH POC ABG pCO2 33.8 L POC ABG pO2 ABG pO2 ABG HCO3 ABG Base Excess ABG Hemoglobin Oxyhemoglobin Sodium Potassium Chloride Carbon Dioxide BUN Creatinine Glucose POC Glucose 191 H 239 H Lactic Acid Calcium Phosphorus Magnesium Direct Bilirubin AST ALT Alkaline Phosphatase Lactate Dehydrogenase Troponin T C-Reactive Protein Total Protein Albumin Prealbumin Triglycerides Cholesterol LDL Cholesterol Direct HDL Cholesterol Urine pH Urine WBC (Auto) Urine Creatinine Urine Total Protein Fluid Total Protein Vancomycin Trough Rheumatoid Factor Complement C4 Miscellaneous Test Crossmatch 09/11/16 09/12/16 09/12/16 23:52 05:09 05:32 WBC RBC Hgb Hct MCV MCH MCHC RDW Plt Count Lymph % (Auto) [place] % (Auto) Lymph # [place] # Baso # Seg Neutrophils % Seg Neuts % (Manual) Lymphocytes % (Manual) Monocytes % (Manual) Eosinophils % (Manual) Basophils % (Manual) Nucleated RBC % Seg Neutrophils # Seg Neutrophils # Man Lymphocytes # (Manual) Monocytes # (Manual) Eosinophils # (Manual) Basophils # (Manual) PT INR Fibrinogen dRVVT Confirm Interp Factor V Activity POC ABG pH POC ABG pCO2 34.6 L POC ABG pO2 ABG pO2 ABG HCO3 ABG Base Excess ABG Hemoglobin Oxyhemoglobin Sodium Potassium Chloride Carbon Dioxide BUN Creatinine Glucose POC Glucose 265 H 184 H Lactic Acid Calcium Phosphorus Magnesium Direct Bilirubin AST ALT Alkaline Phosphatase Lactate Dehydrogenase Troponin T C-Reactive Protein Total Protein Albumin Prealbumin Triglycerides Cholesterol LDL Cholesterol Direct HDL Cholesterol Urine pH Urine WBC (Auto) Urine Creatinine Urine Total Protein Fluid Total Protein Vancomycin Trough Rheumatoid Factor Complement C4 Miscellaneous Test Crossmatch 09/12/16 09/12/16 09/12/16 06:45 06:45 07:22 WBC 31.7 H RBC 3.54 L Hgb 8.3 L Hct 25.9 L MCV 73 L MCH 23 L MCHC RDW 18.9 H Plt Count Lymph % (Auto) [place] % (Auto) Lymph # [place] # Baso # Seg Neutrophils % Seg Neuts % (Manual) 88.5 H Lymphocytes % (Manual) 4.5 L Monocytes % (Manual) Eosinophils % (Manual) Basophils % (Manual) Nucleated RBC % Seg Neutrophils # Seg Neutrophils # Man 28.1 H Lymphocytes # (Manual) Monocytes # (Manual) 1.0 H Eosinophils # (Manual) Basophils # (Manual) PT INR Fibrinogen dRVVT Confirm Interp Factor V Activity POC ABG pH POC ABG pCO2 POC ABG pO2 ABG pO2 ABG HCO3 ABG Base Excess ABG Hemoglobin Oxyhemoglobin Sodium Potassium Chloride Carbon Dioxide 20 L BUN 115 H Creatinine 2.7 H Glucose 165 H POC Glucose Lactic Acid Calcium 8.0 L Phosphorus Magnesium Direct Bilirubin AST ALT Alkaline Phosphatase Lactate Dehydrogenase Troponin T C-Reactive Protein Total Protein Albumin Prealbumin Triglycerides 217 H Cholesterol LDL Cholesterol Direct HDL Cholesterol Urine pH Urine WBC (Auto) Urine Creatinine Urine Total Protein Fluid Total Protein Vancomycin Trough Rheumatoid Factor Complement C4 Miscellaneous Test Crossmatch 09/12/16 09/12/16 09/12/16 07:22 09:59 12:21 WBC RBC Hgb Hct MCV MCH MCHC RDW Plt Count Lymph % (Auto) [place] % (Auto) Lymph # [place] # Baso # Seg Neutrophils % Seg Neuts % (Manual) Lymphocytes % (Manual) Monocytes % (Manual) Eosinophils % (Manual) Basophils % (Manual) Nucleated RBC % Seg Neutrophils # Seg Neutrophils # Man Lymphocytes # (Manual) Monocytes # (Manual) Eosinophils # (Manual) Basophils # (Manual) PT INR Fibrinogen dRVVT Confirm Interp Positive H Factor V Activity POC ABG pH POC ABG pCO2 POC ABG pO2 ABG pO2 ABG HCO3 ABG Base Excess ABG Hemoglobin Oxyhemoglobin Sodium Potassium Chloride Carbon Dioxide BUN Creatinine Glucose POC Glucose 224 H Lactic Acid Calcium Phosphorus Magnesium Direct Bilirubin AST ALT Alkaline Phosphatase Lactate Dehydrogenase Troponin T C-Reactive Protein 1.70 H Total Protein Albumin Prealbumin Triglycerides Cholesterol LDL Cholesterol Direct HDL Cholesterol Urine pH Urine WBC (Auto) Urine Creatinine Urine Total Protein Fluid Total Protein Vancomycin Trough Rheumatoid Factor Complement C4 Miscellaneous Test Crossmatch 09/12/16 09/12/16 09/13/16 16:51 23:28 04:00 WBC 45.0 H* RBC Hgb 9.4 L Hct MCV 75 L MCH 23 L MCHC RDW 19.0 H Plt Count 470 H Lymph % (Auto) [place] % (Auto) Lymph # [place] # Baso # Seg Neutrophils % Seg Neuts % (Manual) 89.0 H Lymphocytes % (Manual) 5.0 L Monocytes % (Manual) Eosinophils % (Manual) Basophils % (Manual) Nucleated RBC % Seg Neutrophils # Seg Neutrophils # Man 40.1 H Lymphocytes # (Manual) Monocytes # (Manual) Eosinophils # (Manual) Basophils # (Manual) PT INR Fibrinogen dRVVT Confirm Interp Factor V Activity POC ABG pH POC ABG pCO2 POC ABG pO2 ABG pO2 ABG HCO3 ABG Base Excess ABG Hemoglobin Oxyhemoglobin Sodium Potassium Chloride Carbon Dioxide BUN Creatinine Glucose POC Glucose 169 H 150 H Lactic Acid Calcium Phosphorus Magnesium Direct Bilirubin AST ALT Alkaline Phosphatase Lactate Dehydrogenase Troponin T C-Reactive Protein Total Protein Albumin Prealbumin Triglycerides Cholesterol LDL Cholesterol Direct HDL Cholesterol Urine pH Urine WBC (Auto) Urine Creatinine Urine Total Protein Fluid Total Protein Vancomycin Trough Rheumatoid Factor Complement C4 Miscellaneous Test Crossmatch 09/13/16 09/13/16 09/13/16 04:00 11:26 17:31 WBC RBC Hgb Hct MCV MCH MCHC RDW Plt Count Lymph % (Auto) [place] % (Auto) Lymph # [place] # Baso # Seg Neutrophils % Seg Neuts % (Manual) Lymphocytes % (Manual) Monocytes % (Manual) Eosinophils % (Manual) Basophils % (Manual) Nucleated RBC % Seg Neutrophils # Seg Neutrophils # Man Lymphocytes # (Manual) Monocytes # (Manual) Eosinophils # (Manual) Basophils # (Manual) PT INR Fibrinogen dRVVT Confirm Interp Factor V Activity POC ABG pH POC ABG pCO2 POC ABG pO2 ABG pO2 ABG HCO3 ABG Base Excess ABG Hemoglobin Oxyhemoglobin Sodium Potassium Chloride Carbon Dioxide 20 L BUN 116 H Creatinine 3.0 H Glucose 172 H POC Glucose 140 H 183 H Lactic Acid Calcium Phosphorus Magnesium Direct Bilirubin AST ALT Alkaline Phosphatase Lactate Dehydrogenase Troponin T C-Reactive Protein Total Protein 6.2 L Albumin 2.9 L Prealbumin Triglycerides Cholesterol LDL Cholesterol Direct HDL Cholesterol Urine pH Urine WBC (Auto) Urine Creatinine Urine Total Protein Fluid Total Protein Vancomycin Trough Rheumatoid Factor Complement C4 Miscellaneous Test Crossmatch 09/13/16 09/14/16 09/14/16 23:23 04:06 04:07 WBC 29.4 H RBC Hgb 8.9 L Hct 27.3 L MCV 75 L MCH 24 L MCHC RDW 19.1 H Plt Count Lymph % (Auto) [place] % (Auto) Lymph # [place] # Baso # Seg Neutrophils % Seg Neuts % (Manual) 84.0 H Lymphocytes % (Manual) 6.0 L Monocytes % (Manual) 9.0 H Eosinophils % (Manual) Basophils % (Manual) Nucleated RBC % Seg Neutrophils # Seg Neutrophils # Man 24.7 H Lymphocytes # (Manual) Monocytes # (Manual) 2.6 H Eosinophils # (Manual) Basophils # (Manual) PT INR Fibrinogen dRVVT Confirm Interp Factor V Activity POC ABG pH 7.342 L POC ABG pCO2 POC ABG pO2 116 H ABG pO2 ABG HCO3 ABG Base Excess ABG Hemoglobin Oxyhemoglobin Sodium Potassium Chloride Carbon Dioxide BUN Creatinine Glucose POC Glucose 154 H Lactic Acid Calcium Phosphorus Magnesium Direct Bilirubin AST ALT Alkaline Phosphatase Lactate Dehydrogenase Troponin T C-Reactive Protein Total Protein Albumin Prealbumin Triglycerides Cholesterol LDL Cholesterol Direct HDL Cholesterol Urine pH Urine WBC (Auto) Urine Creatinine Urine Total Protein Fluid Total Protein Vancomycin Trough Rheumatoid Factor Complement C4 Miscellaneous Test Crossmatch 09/14/16 09/14/16 09/14/16 04:07 05:29 12:19 WBC RBC Hgb Hct MCV MCH MCHC RDW Plt Count Lymph % (Auto) [place] % (Auto) Lymph # [place] # Baso # Seg Neutrophils % Seg Neuts % (Manual) Lymphocytes % (Manual) Monocytes % (Manual) Eosinophils % (Manual) Basophils % (Manual) Nucleated RBC % Seg Neutrophils # Seg Neutrophils # Man Lymphocytes # (Manual) Monocytes # (Manual) Eosinophils # (Manual) Basophils # (Manual) PT INR Fibrinogen dRVVT Confirm Interp Factor V Activity POC ABG pH POC ABG pCO2 POC ABG pO2 ABG pO2 ABG HCO3 ABG Base Excess ABG Hemoglobin Oxyhemoglobin Sodium 136 L Potassium Chloride Carbon Dioxide 18 L BUN 121 H Creatinine 2.8 H Glucose 214 H POC Glucose 239 H 181 H Lactic Acid Calcium Phosphorus Magnesium Direct Bilirubin AST ALT Alkaline Phosphatase Lactate Dehydrogenase Troponin T C-Reactive Protein Total Protein Albumin Prealbumin Triglycerides Cholesterol LDL Cholesterol Direct HDL Cholesterol Urine pH Urine WBC (Auto) Urine Creatinine Urine Total Protein Fluid Total Protein Vancomycin Trough Rheumatoid Factor Complement C4 Miscellaneous Test Crossmatch 09/14/16 09/14/16 09/15/16 18:12 23:37 05:00 WBC 26.1 H RBC 3.05 L Hgb 7.2 L Hct 22.9 L MCV 75 L MCH 24 L MCHC RDW 19.0 H Plt Count Lymph % (Auto) [place] % (Auto) Lymph # [place] # Baso # Seg Neutrophils % Seg Neuts % (Manual) Lymphocytes % (Manual) Monocytes % (Manual) Eosinophils % (Manual) Basophils % (Manual) Nucleated RBC % Seg Neutrophils # Seg Neutrophils # Man Lymphocytes # (Manual) Monocytes # (Manual) Eosinophils # (Manual) Basophils # (Manual) PT INR Fibrinogen dRVVT Confirm Interp Factor V Activity POC ABG pH POC ABG pCO2 POC ABG pO2 ABG pO2 ABG HCO3 ABG Base Excess ABG Hemoglobin Oxyhemoglobin Sodium Potassium Chloride Carbon Dioxide BUN Creatinine Glucose POC Glucose 266 H 154 H Lactic Acid Calcium Phosphorus Magnesium Direct Bilirubin AST ALT Alkaline Phosphatase Lactate Dehydrogenase Troponin T C-Reactive Protein Total Protein Albumin Prealbumin Triglycerides Cholesterol LDL Cholesterol Direct HDL Cholesterol Urine pH Urine WBC (Auto) Urine Creatinine Urine Total Protein Fluid Total Protein Vancomycin Trough Rheumatoid Factor Complement C4 Miscellaneous Test Crossmatch 09/15/16 09/15/16 09/15/16 05:00 05:17 12:45 WBC RBC Hgb Hct MCV MCH MCHC RDW Plt Count Lymph % (Auto) [place] % (Auto) Lymph # [place] # Baso # Seg Neutrophils % Seg Neuts % (Manual) Lymphocytes % (Manual) Monocytes % (Manual) Eosinophils % (Manual) Basophils % (Manual) Nucleated RBC % Seg Neutrophils # Seg Neutrophils # Man Lymphocytes # (Manual) Monocytes # (Manual) Eosinophils # (Manual) Basophils # (Manual) PT INR Fibrinogen dRVVT Confirm Interp Factor V Activity POC ABG pH POC ABG pCO2 POC ABG pO2 ABG pO2 ABG HCO3 ABG Base Excess ABG Hemoglobin Oxyhemoglobin Sodium Potassium 5.2 H Chloride Carbon Dioxide 18 L BUN 139 H Creatinine 3.7 H Glucose 227 H POC Glucose 226 H 244 H Lactic Acid Calcium 8.3 L Phosphorus Magnesium Direct Bilirubin AST ALT Alkaline Phosphatase Lactate Dehydrogenase Troponin T C-Reactive Protein Total Protein Albumin Prealbumin Triglycerides Cholesterol LDL Cholesterol Direct HDL Cholesterol Urine pH Urine WBC (Auto) Urine Creatinine Urine Total Protein Fluid Total Protein Vancomycin Trough Rheumatoid Factor Complement C4 Miscellaneous Test Crossmatch 09/15/16 09/15/16 09/15/16 14:32 17:33 23:35 WBC RBC Hgb Hct MCV MCH MCHC RDW Plt Count Lymph % (Auto) [place] % (Auto) Lymph # [place] # Baso # Seg Neutrophils % Seg Neuts % (Manual) Lymphocytes % (Manual) Monocytes % (Manual) Eosinophils % (Manual) Basophils % (Manual) Nucleated RBC % Seg Neutrophils # Seg Neutrophils # Man Lymphocytes # (Manual) Monocytes # (Manual) Eosinophils # (Manual) Basophils # (Manual) PT INR Fibrinogen dRVVT Confirm Interp Factor V Activity POC ABG pH POC ABG pCO2 27.7 L POC ABG pO2 120 H ABG pO2 ABG HCO3 ABG Base Excess ABG Hemoglobin Oxyhemoglobin Sodium Potassium Chloride Carbon Dioxide BUN Creatinine Glucose POC Glucose 232 H 167 H Lactic Acid Calcium Phosphorus Magnesium Direct Bilirubin AST ALT Alkaline Phosphatase Lactate Dehydrogenase Troponin T C-Reactive Protein Total Protein Albumin Prealbumin Triglycerides Cholesterol LDL Cholesterol Direct HDL Cholesterol Urine pH Urine WBC (Auto) Urine Creatinine Urine Total Protein Fluid Total Protein Vancomycin Trough Rheumatoid Factor Complement C4 Miscellaneous Test Crossmatch 09/16/16 09/16/16 09/16/16 03:58 10:27 10:27 WBC 19.0 H RBC 2.77 L Hgb 6.5 L Hct 20.9 L MCV 76 L MCH 23 L MCHC RDW 19.3 H Plt Count Lymph % (Auto) 11.0 L [place] % (Auto) Lymph # [place] # 1.1 H Baso # Seg Neutrophils % 82.5 H Seg Neuts % (Manual) Lymphocytes % (Manual) Monocytes % (Manual) Eosinophils % (Manual) Basophils % (Manual) Nucleated RBC % Seg Neutrophils # 15.7 H Seg Neutrophils # Man Lymphocytes # (Manual) Monocytes # (Manual) Eosinophils # (Manual) Basophils # (Manual) PT INR Fibrinogen dRVVT Confirm Interp Factor V Activity POC ABG pH POC ABG pCO2 POC ABG pO2 ABG pO2 ABG HCO3 ABG Base Excess ABG Hemoglobin Oxyhemoglobin Sodium Potassium Chloride 109.3 H Carbon Dioxide 18 L BUN 139 H Creatinine 4.1 H Glucose 144 H POC Glucose 146 H Lactic Acid Calcium 8.1 L Phosphorus Magnesium Direct Bilirubin AST ALT Alkaline Phosphatase Lactate Dehydrogenase Troponin T C-Reactive Protein Total Protein Albumin Prealbumin Triglycerides Cholesterol LDL Cholesterol Direct HDL Cholesterol Urine pH Urine WBC (Auto) Urine Creatinine Urine Total Protein Fluid Total Protein Vancomycin Trough Rheumatoid Factor Complement C4 Miscellaneous Test Crossmatch 09/16/16 09/16/16 09/16/16 12:04 12:10 13:55 WBC RBC Hgb Hct MCV MCH MCHC RDW Plt Count Lymph % (Auto) [place] % (Auto) Lymph # [place] # Baso # Seg Neutrophils % Seg Neuts % (Manual) Lymphocytes % (Manual) Monocytes % (Manual) Eosinophils % (Manual) Basophils % (Manual) Nucleated RBC % Seg Neutrophils # Seg Neutrophils # Man Lymphocytes # (Manual) Monocytes # (Manual) Eosinophils # (Manual) Basophils # (Manual) PT INR Fibrinogen dRVVT Confirm Interp Factor V Activity POC ABG pH POC ABG pCO2 32.9 L POC ABG pO2 ABG pO2 ABG HCO3 ABG Base Excess ABG Hemoglobin Oxyhemoglobin Sodium Potassium Chloride Carbon Dioxide BUN Creatinine Glucose POC Glucose 185 H Lactic Acid Calcium Phosphorus Magnesium Direct Bilirubin AST ALT Alkaline Phosphatase Lactate Dehydrogenase Troponin T C-Reactive Protein Total Protein Albumin Prealbumin Triglycerides Cholesterol LDL Cholesterol Direct HDL Cholesterol Urine pH Urine WBC (Auto) Urine Creatinine Urine Total Protein Fluid Total Protein Vancomycin Trough Rheumatoid Factor Complement C4 Miscellaneous Test Crossmatch See Detail 09/16/16 09/16/16 09/16/16 17:55 19:19 23:48 WBC RBC Hgb Hct MCV MCH MCHC RDW Plt Count Lymph % (Auto) [place] % (Auto) Lymph # [place] # Baso # Seg Neutrophils % Seg Neuts % (Manual) Lymphocytes % (Manual) Monocytes % (Manual) Eosinophils % (Manual) Basophils % (Manual) Nucleated RBC % Seg Neutrophils # Seg Neutrophils # Man Lymphocytes # (Manual) Monocytes # (Manual) Eosinophils # (Manual) Basophils # (Manual) PT INR Fibrinogen dRVVT Confirm Interp Factor V Activity POC ABG pH POC ABG pCO2 POC ABG pO2 ABG pO2 ABG HCO3 ABG Base Excess ABG Hemoglobin Oxyhemoglobin Sodium Potassium Chloride Carbon Dioxide BUN Creatinine Glucose POC Glucose 222 H 107 H Lactic Acid Calcium Phosphorus Magnesium Direct Bilirubin AST ALT Alkaline Phosphatase Lactate Dehydrogenase Troponin T C-Reactive Protein Total Protein Albumin Prealbumin Triglycerides Cholesterol LDL Cholesterol Direct HDL Cholesterol Urine pH Urine WBC (Auto) Urine Creatinine 47.4 H Urine Total Protein 16 H Fluid Total Protein Vancomycin Trough Rheumatoid Factor Complement C4 Miscellaneous Test Crossmatch 09/17/16 09/17/16 09/17/16 03:45 03:45 04:55 WBC 19.6 H RBC 3.41 L Hgb 8.5 L Hct 26.7 L MCV 78 L MCH 25 L MCHC RDW 19.9 H Plt Count Lymph % (Auto) 9.3 L [place] % (Auto) Lymph # [place] # 1.2 H Baso # Seg Neutrophils % 83.9 H Seg Neuts % (Manual) Lymphocytes % (Manual) Monocytes % (Manual) Eosinophils % (Manual) Basophils % (Manual) Nucleated RBC % Seg Neutrophils # 16.4 H Seg Neutrophils # Man Lymphocytes # (Manual) Monocytes # (Manual) Eosinophils # (Manual) Basophils # (Manual) PT INR Fibrinogen dRVVT Confirm Interp Factor V Activity POC ABG pH POC ABG pCO2 POC ABG pO2 ABG pO2 ABG HCO3 ABG Base Excess ABG Hemoglobin Oxyhemoglobin Sodium 146 H Potassium 5.1 H Chloride 110.9 H Carbon Dioxide 16 L BUN 146 H Creatinine 4.0 H Glucose 108 H POC Glucose 133 H Lactic Acid Calcium Phosphorus Magnesium 3.00 H Direct Bilirubin AST ALT Alkaline Phosphatase Lactate Dehydrogenase Troponin T C-Reactive Protein Total Protein Albumin Prealbumin Triglycerides Cholesterol LDL Cholesterol Direct HDL Cholesterol Urine pH Urine WBC (Auto) Urine Creatinine Urine Total Protein Fluid Total Protein Vancomycin Trough Rheumatoid Factor Complement C4 Miscellaneous Test Crossmatch 09/17/16 09/17/16 09/17/16 11:15 17:33 23:47 WBC RBC Hgb Hct MCV MCH MCHC RDW Plt Count Lymph % (Auto) [place] % (Auto) Lymph # [place] # Baso # Seg Neutrophils % Seg Neuts % (Manual) Lymphocytes % (Manual) Monocytes % (Manual) Eosinophils % (Manual) Basophils % (Manual) Nucleated RBC % Seg Neutrophils # Seg Neutrophils # Man Lymphocytes # (Manual) Monocytes # (Manual) Eosinophils # (Manual) Basophils # (Manual) PT INR Fibrinogen dRVVT Confirm Interp Factor V Activity POC ABG pH POC ABG pCO2 POC ABG pO2 ABG pO2 ABG HCO3 ABG Base Excess ABG Hemoglobin Oxyhemoglobin Sodium Potassium Chloride Carbon Dioxide BUN Creatinine Glucose POC Glucose 176 H 246 H 148 H Lactic Acid Calcium Phosphorus Magnesium Direct Bilirubin AST ALT Alkaline Phosphatase Lactate Dehydrogenase Troponin T C-Reactive Protein Total Protein Albumin Prealbumin Triglycerides Cholesterol LDL Cholesterol Direct HDL Cholesterol Urine pH Urine WBC (Auto) Urine Creatinine Urine Total Protein Fluid Total Protein Vancomycin Trough Rheumatoid Factor Complement C4 Miscellaneous Test Crossmatch 09/18/16 09/18/16 09/18/16 05:33 08:31 08:31 WBC 18.0 H RBC 3.17 L Hgb 9.0 L Hct 25.7 L MCV MCH MCHC 35 H RDW 20.4 H Plt Count Lymph % (Auto) [place] % (Auto) Lymph # [place] # Baso # Seg Neutrophils % Seg Neuts % (Manual) Lymphocytes % (Manual) Monocytes % (Manual) Eosinophils % (Manual) Basophils % (Manual) Nucleated RBC % Seg Neutrophils # Seg Neutrophils # Man Lymphocytes # (Manual) Monocytes # (Manual) Eosinophils # (Manual) Basophils # (Manual) PT INR Fibrinogen dRVVT Confirm Interp Factor V Activity POC ABG pH POC ABG pCO2 POC ABG pO2 ABG pO2 ABG HCO3 ABG Base Excess ABG Hemoglobin Oxyhemoglobin Sodium Potassium Chloride Carbon Dioxide 15 L BUN 124 H Creatinine 3.8 H Glucose POC Glucose 120 H Lactic Acid Calcium 8.1 L Phosphorus Magnesium Direct Bilirubin AST ALT Alkaline Phosphatase Lactate Dehydrogenase Troponin T C-Reactive Protein Total Protein Albumin Prealbumin Triglycerides Cholesterol LDL Cholesterol Direct HDL Cholesterol Urine pH Urine WBC (Auto) Urine Creatinine Urine Total Protein Fluid Total Protein Vancomycin Trough Rheumatoid Factor Complement C4 Miscellaneous Test Crossmatch 09/18/16 09/18/16 09/18/16 12:03 15:34 17:50 WBC RBC Hgb Hct MCV MCH MCHC RDW Plt Count Lymph % (Auto) [place] % (Auto) Lymph # [place] # Baso # Seg Neutrophils % Seg Neuts % (Manual) Lymphocytes % (Manual) Monocytes % (Manual) Eosinophils % (Manual) Basophils % (Manual) Nucleated RBC % Seg Neutrophils # Seg Neutrophils # Man Lymphocytes # (Manual) Monocytes # (Manual) Eosinophils # (Manual) Basophils # (Manual) PT INR Fibrinogen dRVVT Confirm Interp Factor V Activity POC ABG pH POC ABG pCO2 25.7 L POC ABG pO2 66 L ABG pO2 ABG HCO3 ABG Base Excess ABG Hemoglobin Oxyhemoglobin Sodium Potassium Chloride Carbon Dioxide BUN Creatinine Glucose POC Glucose 156 H 220 H Lactic Acid Calcium Phosphorus Magnesium Direct Bilirubin AST ALT Alkaline Phosphatase Lactate Dehydrogenase Troponin T C-Reactive Protein Total Protein Albumin Prealbumin Triglycerides Cholesterol LDL Cholesterol Direct HDL Cholesterol Urine pH Urine WBC (Auto) Urine Creatinine Urine Total Protein Fluid Total Protein Vancomycin Trough Rheumatoid Factor Complement C4 Miscellaneous Test Crossmatch 09/19/16 09/19/16 09/19/16 06:21 09:50 09:50 WBC 17.1 H RBC 3.49 L Hgb 9.0 L Hct 28.1 L MCV MCH 26 L MCHC RDW 20.8 H Plt Count Lymph % (Auto) 11.5 L [place] % (Auto) 7.5 H Lymph # [place] # 1.3 H Baso # Seg Neutrophils % 79.8 H Seg Neuts % (Manual) Lymphocytes % (Manual) Monocytes % (Manual) Eosinophils % (Manual) Basophils % (Manual) Nucleated RBC % Seg Neutrophils # 13.7 H Seg Neutrophils # Man Lymphocytes # (Manual) Monocytes # (Manual) Eosinophils # (Manual) Basophils # (Manual) PT INR Fibrinogen dRVVT Confirm Interp Factor V Activity POC ABG pH POC ABG pCO2 POC ABG pO2 ABG pO2 ABG HCO3 ABG Base Excess ABG Hemoglobin Oxyhemoglobin Sodium Potassium Chloride 108.6 H Carbon Dioxide 15 L BUN 125 H Creatinine 4.1 H Glucose 124 H POC Glucose 119 H Lactic Acid Calcium Phosphorus Magnesium Direct Bilirubin AST ALT Alkaline Phosphatase Lactate Dehydrogenase Troponin T C-Reactive Protein Total Protein Albumin Prealbumin Triglycerides Cholesterol LDL Cholesterol Direct HDL Cholesterol Urine pH Urine WBC (Auto) Urine Creatinine Urine Total Protein Fluid Total Protein Vancomycin Trough Rheumatoid Factor Complement C4 Miscellaneous Test Crossmatch 09/19/16 09/19/16 09/19/16 11:25 17:53 23:36 WBC RBC Hgb Hct MCV MCH MCHC RDW Plt Count Lymph % (Auto) [place] % (Auto) Lymph # [place] # Baso # Seg Neutrophils % Seg Neuts % (Manual) Lymphocytes % (Manual) Monocytes % (Manual) Eosinophils % (Manual) Basophils % (Manual) Nucleated RBC % Seg Neutrophils # Seg Neutrophils # Man Lymphocytes # (Manual) Monocytes # (Manual) Eosinophils # (Manual) Basophils # (Manual) PT INR Fibrinogen dRVVT Confirm Interp Factor V Activity POC ABG pH POC ABG pCO2 POC ABG pO2 ABG pO2 ABG HCO3 ABG Base Excess ABG Hemoglobin Oxyhemoglobin Sodium Potassium Chloride Carbon Dioxide BUN Creatinine Glucose POC Glucose 160 H 245 H 121 H Lactic Acid Calcium Phosphorus Magnesium Direct Bilirubin AST ALT Alkaline Phosphatase Lactate Dehydrogenase Troponin T C-Reactive Protein Total Protein Albumin Prealbumin Triglycerides Cholesterol LDL Cholesterol Direct HDL Cholesterol Urine pH Urine WBC (Auto) Urine Creatinine Urine Total Protein Fluid Total Protein Vancomycin Trough Rheumatoid Factor Complement C4 Miscellaneous Test Crossmatch 09/20/16 09/20/16 09/20/16 04:10 04:10 04:10 WBC 17.0 H RBC 3.21 L Hgb 8.2 L Hct 25.5 L MCV MCH 26 L MCHC RDW 20.9 H Plt Count Lymph % (Auto) [place] % (Auto) Lymph # [place] # Baso # Seg Neutrophils % Seg Neuts % (Manual) Lymphocytes % (Manual) Monocytes % (Manual) Eosinophils % (Manual) Basophils % (Manual) Nucleated RBC % Seg Neutrophils # Seg Neutrophils # Man Lymphocytes # (Manual) Monocytes # (Manual) Eosinophils # (Manual) Basophils # (Manual) PT INR Fibrinogen dRVVT Confirm Interp Factor V Activity POC ABG pH POC ABG pCO2 POC ABG pO2 ABG pO2 ABG HCO3 ABG Base Excess ABG Hemoglobin Oxyhemoglobin Sodium Potassium Chloride 111.0 H Carbon Dioxide 16 L BUN 129 H Creatinine 3.7 H Glucose 115 H POC Glucose Lactic Acid Calcium 8.2 L Phosphorus Magnesium Direct Bilirubin AST ALT Alkaline Phosphatase Lactate Dehydrogenase Troponin T C-Reactive Protein Total Protein Albumin Prealbumin Triglycerides 243 H Cholesterol LDL Cholesterol Direct HDL Cholesterol Urine pH Urine WBC (Auto) Urine Creatinine Urine Total Protein Fluid Total Protein Vancomycin Trough Rheumatoid Factor Complement C4 Miscellaneous Test Crossmatch 09/20/16 09/20/16 09/20/16 05:40 11:52 16:50 WBC RBC Hgb Hct MCV MCH MCHC RDW Plt Count Lymph % (Auto) [place] % (Auto) Lymph # [place] # Baso # Seg Neutrophils % Seg Neuts % (Manual) Lymphocytes % (Manual) Monocytes % (Manual) Eosinophils % (Manual) Basophils % (Manual) Nucleated RBC % Seg Neutrophils # Seg Neutrophils # Man Lymphocytes # (Manual) Monocytes # (Manual) Eosinophils # (Manual) Basophils # (Manual) PT INR Fibrinogen dRVVT Confirm Interp Factor V Activity POC ABG pH POC ABG pCO2 POC ABG pO2 ABG pO2 ABG HCO3 ABG Base Excess ABG Hemoglobin Oxyhemoglobin Sodium Potassium Chloride Carbon Dioxide BUN Creatinine Glucose POC Glucose 131 H 183 H 236 H Lactic Acid Calcium Phosphorus Magnesium Direct Bilirubin AST ALT Alkaline Phosphatase Lactate Dehydrogenase Troponin T C-Reactive Protein Total Protein Albumin Prealbumin Triglycerides Cholesterol LDL Cholesterol Direct HDL Cholesterol Urine pH Urine WBC (Auto) Urine Creatinine Urine Total Protein Fluid Total Protein Vancomycin Trough Rheumatoid Factor Complement C4 Miscellaneous Test Crossmatch 09/20/16 09/21/16 09/21/16 23:51 03:30 04:44 WBC RBC Hgb Hct MCV MCH MCHC RDW Plt Count Lymph % (Auto) [place] % (Auto) Lymph # [place] # Baso # Seg Neutrophils % Seg Neuts % (Manual) Lymphocytes % (Manual) Monocytes % (Manual) Eosinophils % (Manual) Basophils % (Manual) Nucleated RBC % Seg Neutrophils # Seg Neutrophils # Man Lymphocytes # (Manual) Monocytes # (Manual) Eosinophils # (Manual) Basophils # (Manual) PT INR Fibrinogen dRVVT Confirm Interp Factor V Activity POC ABG pH POC ABG pCO2 POC ABG pO2 ABG pO2 ABG HCO3 ABG Base Excess ABG Hemoglobin Oxyhemoglobin Sodium Potassium Chloride Carbon Dioxide BUN Creatinine Glucose POC Glucose 114 H 141 H Lactic Acid Calcium Phosphorus Magnesium 2.70 H Direct Bilirubin AST ALT Alkaline Phosphatase Lactate Dehydrogenase Troponin T C-Reactive Protein Total Protein Albumin Prealbumin Triglycerides Cholesterol LDL Cholesterol Direct HDL Cholesterol Urine pH Urine WBC (Auto) Urine Creatinine Urine Total Protein Fluid Total Protein Vancomycin Trough Rheumatoid Factor Complement C4 Miscellaneous Test Crossmatch 09/21/16 09/21/16 09/21/16 07:45 07:45 10:01 WBC 13.8 H RBC 2.94 L Hgb 7.5 L Hct 23.5 L MCV MCH 26 L MCHC RDW 21.2 H Plt Count Lymph % (Auto) 6.9 L [place] % (Auto) 9.4 H Lymph # 0.9 L [place] # 1.3 H Baso # Seg Neutrophils % 83.2 H Seg Neuts % (Manual) Lymphocytes % (Manual) Monocytes % (Manual) Eosinophils % (Manual) Basophils % (Manual) Nucleated RBC % Seg Neutrophils # 11.5 H Seg Neutrophils # Man Lymphocytes # (Manual) Monocytes # (Manual) Eosinophils # (Manual) Basophils # (Manual) PT INR Fibrinogen dRVVT Confirm Interp Factor V Activity POC ABG pH 7.308 L POC ABG pCO2 31.9 L POC ABG pO2 148 H ABG pO2 ABG HCO3 ABG Base Excess ABG Hemoglobin Oxyhemoglobin Sodium 147 H Potassium Chloride 114.2 H Carbon Dioxide 15 L BUN 120 H Creatinine 3.9 H Glucose 156 H POC Glucose Lactic Acid Calcium 8.2 L Phosphorus Magnesium Direct Bilirubin AST ALT Alkaline Phosphatase Lactate Dehydrogenase Troponin T C-Reactive Protein Total Protein Albumin Prealbumin Triglycerides Cholesterol LDL Cholesterol Direct HDL Cholesterol Urine pH Urine WBC (Auto) Urine Creatinine Urine Total Protein Fluid Total Protein Vancomycin Trough Rheumatoid Factor Complement C4 Miscellaneous Test Crossmatch 09/21/16 09/21/16 09/21/16 12:00 12:03 13:00 WBC RBC Hgb Hct MCV MCH MCHC RDW Plt Count Lymph % (Auto) [place] % (Auto) Lymph # [place] # Baso # Seg Neutrophils % Seg Neuts % (Manual) Lymphocytes % (Manual) Monocytes % (Manual) Eosinophils % (Manual) Basophils % (Manual) Nucleated RBC % Seg Neutrophils # Seg Neutrophils # Man Lymphocytes # (Manual) Monocytes # (Manual) Eosinophils # (Manual) Basophils # (Manual) PT INR Fibrinogen dRVVT Confirm Interp Factor V Activity POC ABG pH POC ABG pCO2 POC ABG pO2 ABG pO2 ABG HCO3 ABG Base Excess ABG Hemoglobin Oxyhemoglobin Sodium Potassium Chloride Carbon Dioxide BUN Creatinine Glucose POC Glucose 163 H Lactic Acid Calcium Phosphorus Magnesium Direct Bilirubin AST ALT Alkaline Phosphatase Lactate Dehydrogenase Troponin T C-Reactive Protein Total Protein Albumin Prealbumin Triglycerides Cholesterol LDL Cholesterol Direct HDL Cholesterol Urine pH Urine WBC (Auto) Urine Creatinine 54.8 H Urine Total Protein Fluid Total Protein Vancomycin Trough 2.3 L Rheumatoid Factor Complement C4 Miscellaneous Test Crossmatch 09/21/16 09/21/16 09/22/16 16:51 23:17 06:27 WBC RBC Hgb Hct MCV MCH MCHC RDW Plt Count Lymph % (Auto) [place] % (Auto) Lymph # [place] # Baso # Seg Neutrophils % Seg Neuts % (Manual) Lymphocytes % (Manual) Monocytes % (Manual) Eosinophils % (Manual) Basophils % (Manual) Nucleated RBC % Seg Neutrophils # Seg Neutrophils # Man Lymphocytes # (Manual) Monocytes # (Manual) Eosinophils # (Manual) Basophils # (Manual) PT INR Fibrinogen dRVVT Confirm Interp Factor V Activity POC ABG pH POC ABG pCO2 POC ABG pO2 ABG pO2 ABG HCO3 ABG Base Excess ABG Hemoglobin Oxyhemoglobin Sodium Potassium Chloride Carbon Dioxide BUN Creatinine Glucose POC Glucose 206 H 114 H 115 H Lactic Acid Calcium Phosphorus Magnesium Direct Bilirubin AST ALT Alkaline Phosphatase Lactate Dehydrogenase Troponin T C-Reactive Protein Total Protein Albumin Prealbumin Triglycerides Cholesterol LDL Cholesterol Direct HDL Cholesterol Urine pH Urine WBC (Auto) Urine Creatinine Urine Total Protein Fluid Total Protein Vancomycin Trough Rheumatoid Factor Complement C4 Miscellaneous Test Crossmatch 09/22/16 09/22/16 09/22/16 07:50 07:50 12:00 WBC 17.8 H RBC 3.04 L Hgb 8.0 L Hct 24.7 L MCV MCH 26 L MCHC RDW 21.6 H Plt Count Lymph % (Auto) [place] % (Auto) Lymph # [place] # Baso # Seg Neutrophils % Seg Neuts % (Manual) Lymphocytes % (Manual) Monocytes % (Manual) Eosinophils % (Manual) Basophils % (Manual) Nucleated RBC % Seg Neutrophils # Seg Neutrophils # Man Lymphocytes # (Manual) Monocytes # (Manual) Eosinophils # (Manual) Basophils # (Manual) PT INR Fibrinogen dRVVT Confirm Interp Factor V Activity POC ABG pH POC ABG pCO2 POC ABG pO2 ABG pO2 ABG HCO3 ABG Base Excess ABG Hemoglobin Oxyhemoglobin Sodium 150 H Potassium Chloride 118.2 H Carbon Dioxide 14 L BUN 111 H Creatinine 3.7 H Glucose 157 H POC Glucose 183 H Lactic Acid Calcium Phosphorus Magnesium Direct Bilirubin AST ALT Alkaline Phosphatase Lactate Dehydrogenase Troponin T C-Reactive Protein Total Protein Albumin Prealbumin Triglycerides Cholesterol LDL Cholesterol Direct HDL Cholesterol Urine pH Urine WBC (Auto) Urine Creatinine Urine Total Protein Fluid Total Protein Vancomycin Trough Rheumatoid Factor Complement C4 Miscellaneous Test Crossmatch 09/22/16 09/22/16 09/23/16 17:29 23:10 05:00 WBC 19.2 H RBC 3.13 L Hgb 8.0 L Hct 25.2 L MCV MCH 26 L MCHC RDW 22.1 H Plt Count Lymph % (Auto) [place] % (Auto) Lymph # [place] # Baso # Seg Neutrophils % Seg Neuts % (Manual) 92.0 H Lymphocytes % (Manual) 3.0 L Monocytes % (Manual) Eosinophils % (Manual) Basophils % (Manual) Nucleated RBC % Seg Neutrophils # Seg Neutrophils # Man 17.7 H Lymphocytes # (Manual) 0.6 L Monocytes # (Manual) Eosinophils # (Manual) Basophils # (Manual) PT INR Fibrinogen dRVVT Confirm Interp Factor V Activity POC ABG pH POC ABG pCO2 POC ABG pO2 ABG pO2 ABG HCO3 ABG Base Excess ABG Hemoglobin Oxyhemoglobin Sodium Potassium Chloride Carbon Dioxide BUN Creatinine Glucose POC Glucose 197 H 169 H Lactic Acid Calcium Phosphorus Magnesium Direct Bilirubin AST ALT Alkaline Phosphatase Lactate Dehydrogenase Troponin T C-Reactive Protein Total Protein Albumin Prealbumin Triglycerides Cholesterol LDL Cholesterol Direct HDL Cholesterol Urine pH Urine WBC (Auto) Urine Creatinine Urine Total Protein Fluid Total Protein Vancomycin Trough Rheumatoid Factor Complement C4 Miscellaneous Test Crossmatch 09/23/16 09/23/16 09/23/16 05:00 05:00 05:10 WBC RBC Hgb Hct MCV MCH MCHC RDW Plt Count Lymph % (Auto) [place] % (Auto) Lymph # [place] # Baso # Seg Neutrophils % Seg Neuts % (Manual) Lymphocytes % (Manual) Monocytes % (Manual) Eosinophils % (Manual) Basophils % (Manual) Nucleated RBC % Seg Neutrophils # Seg Neutrophils # Man Lymphocytes # (Manual) Monocytes # (Manual) Eosinophils # (Manual) Basophils # (Manual) PT INR Fibrinogen dRVVT Confirm Interp Factor V Activity POC ABG pH POC ABG pCO2 POC ABG pO2 ABG pO2 ABG HCO3 ABG Base Excess ABG Hemoglobin Oxyhemoglobin Sodium 147 H Potassium 3.2 L Chloride 115.7 H Carbon Dioxide 13 L BUN 111 H Creatinine 3.8 H Glucose 194 H POC Glucose 188 H Lactic Acid Calcium 7.3 L D Phosphorus Magnesium Direct Bilirubin AST ALT Alkaline Phosphatase Lactate Dehydrogenase Troponin T C-Reactive Protein 3.20 H Total Protein Albumin Prealbumin Triglycerides Cholesterol LDL Cholesterol Direct HDL Cholesterol Urine pH Urine WBC (Auto) Urine Creatinine Urine Total Protein Fluid Total Protein Vancomycin Trough Rheumatoid Factor Complement C4 Miscellaneous Test Crossmatch 09/23/16 09/23/16 09/23/16 11:37 12:29 18:01 WBC RBC Hgb Hct MCV MCH MCHC RDW Plt Count Lymph % (Auto) [place] % (Auto) Lymph # [place] # Baso # Seg Neutrophils % Seg Neuts % (Manual) Lymphocytes % (Manual) Monocytes % (Manual) Eosinophils % (Manual) Basophils % (Manual) Nucleated RBC % Seg Neutrophils # Seg Neutrophils # Man Lymphocytes # (Manual) Monocytes # (Manual) Eosinophils # (Manual) Basophils # (Manual) PT INR Fibrinogen dRVVT Confirm Interp Factor V Activity POC ABG pH POC ABG pCO2 18.9 L POC ABG pO2 143 H ABG pO2 ABG HCO3 ABG Base Excess ABG Hemoglobin Oxyhemoglobin Sodium Potassium Chloride Carbon Dioxide BUN Creatinine Glucose POC Glucose 153 H 108 H Lactic Acid Calcium Phosphorus Magnesium Direct Bilirubin AST ALT Alkaline Phosphatase Lactate Dehydrogenase Troponin T C-Reactive Protein Total Protein Albumin Prealbumin Triglycerides Cholesterol LDL Cholesterol Direct HDL Cholesterol Urine pH Urine WBC (Auto) Urine Creatinine Urine Total Protein Fluid Total Protein Vancomycin Trough Rheumatoid Factor Complement C4 Miscellaneous Test Crossmatch 09/23/16 09/23/16 09/24/16 21:19 23:43 05:16 WBC RBC Hgb Hct MCV MCH MCHC RDW Plt Count Lymph % (Auto) [place] % (Auto) Lymph # [place] # Baso # Seg Neutrophils % Seg Neuts % (Manual) Lymphocytes % (Manual) Monocytes % (Manual) Eosinophils % (Manual) Basophils % (Manual) Nucleated RBC % Seg Neutrophils # Seg Neutrophils # Man Lymphocytes # (Manual) Monocytes # (Manual) Eosinophils # (Manual) Basophils # (Manual) PT INR Fibrinogen dRVVT Confirm Interp Factor V Activity POC ABG pH POC ABG pCO2 17.3 L POC ABG pO2 112 H ABG pO2 ABG HCO3 ABG Base Excess ABG Hemoglobin Oxyhemoglobin Sodium Potassium Chloride Carbon Dioxide BUN Creatinine Glucose POC Glucose 143 H 164 H Lactic Acid Calcium Phosphorus Magnesium Direct Bilirubin AST ALT Alkaline Phosphatase Lactate Dehydrogenase Troponin T C-Reactive Protein Total Protein Albumin Prealbumin Triglycerides Cholesterol LDL Cholesterol Direct HDL Cholesterol Urine pH Urine WBC (Auto) Urine Creatinine Urine Total Protein Fluid Total Protein Vancomycin Trough Rheumatoid Factor Complement C4 Miscellaneous Test Crossmatch 09/24/16 09/24/16 09/24/16 05:21 11:58 17:06 WBC RBC Hgb Hct MCV MCH MCHC RDW Plt Count Lymph % (Auto) [place] % (Auto) Lymph # [place] # Baso # Seg Neutrophils % Seg Neuts % (Manual) Lymphocytes % (Manual) Monocytes % (Manual) Eosinophils % (Manual) Basophils % (Manual) Nucleated RBC % Seg Neutrophils # Seg Neutrophils # Man Lymphocytes # (Manual) Monocytes # (Manual) Eosinophils # (Manual) Basophils # (Manual) PT INR Fibrinogen dRVVT Confirm Interp Factor V Activity POC ABG pH POC ABG pCO2 POC ABG pO2 ABG pO2 ABG HCO3 ABG Base Excess ABG Hemoglobin Oxyhemoglobin Sodium Potassium Chloride Carbon Dioxide 10 L BUN 103 H Creatinine 4.3 H Glucose 163 H POC Glucose 173 H 167 H Lactic Acid Calcium 6.5 L Phosphorus Magnesium Direct Bilirubin AST ALT Alkaline Phosphatase Lactate Dehydrogenase Troponin T C-Reactive Protein Total Protein Albumin Prealbumin Triglycerides Cholesterol LDL Cholesterol Direct HDL Cholesterol Urine pH Urine WBC (Auto) Urine Creatinine Urine Total Protein Fluid Total Protein Vancomycin Trough Rheumatoid Factor Complement C4 Miscellaneous Test Crossmatch 09/24/16 09/24/16 09/24/16 20:15 21:02 23:48 WBC RBC Hgb Hct MCV MCH MCHC RDW Plt Count Lymph % (Auto) [place] % (Auto) Lymph # [place] # Baso # Seg Neutrophils % Seg Neuts % (Manual) Lymphocytes % (Manual) Monocytes % (Manual) Eosinophils % (Manual) Basophils % (Manual) Nucleated RBC % Seg Neutrophils # Seg Neutrophils # Man Lymphocytes # (Manual) Monocytes # (Manual) Eosinophils # (Manual) Basophils # (Manual) PT INR Fibrinogen dRVVT Confirm Interp Factor V Activity POC ABG pH 7.288 L POC ABG pCO2 30.2 L 21.5 L POC ABG pO2 32 L 39 L ABG pO2 ABG HCO3 ABG Base Excess ABG Hemoglobin Oxyhemoglobin Sodium Potassium Chloride Carbon Dioxide BUN Creatinine Glucose POC Glucose 109 H Lactic Acid Calcium Phosphorus Magnesium Direct Bilirubin AST ALT Alkaline Phosphatase Lactate Dehydrogenase Troponin T C-Reactive Protein Total Protein Albumin Prealbumin Triglycerides Cholesterol LDL Cholesterol Direct HDL Cholesterol Urine pH Urine WBC (Auto) Urine Creatinine Urine Total Protein Fluid Total Protein Vancomycin Trough Rheumatoid Factor Complement C4 Miscellaneous Test Crossmatch 09/25/16 09/25/16 09/25/16 04:20 04:20 04:20 WBC RBC 2.58 L Hgb 7.0 L Hct 21.0 L MCV MCH 27 L MCHC RDW 23.8 H Plt Count Lymph % (Auto) [place] % (Auto) Lymph # [place] # Baso # Seg Neutrophils % Seg Neuts % (Manual) Lymphocytes % (Manual) 12.0 L Monocytes % (Manual) Eosinophils % (Manual) 7.0 H Basophils % (Manual) 2.0 H Nucleated RBC % Seg Neutrophils # Seg Neutrophils # Man Lymphocytes # (Manual) 0.9 L Monocytes # (Manual) Eosinophils # (Manual) 0.5 H Basophils # (Manual) PT INR Fibrinogen dRVVT Confirm Interp Factor V Activity POC ABG pH POC ABG pCO2 POC ABG pO2 ABG pO2 ABG HCO3 ABG Base Excess ABG Hemoglobin Oxyhemoglobin Sodium Potassium Chloride Carbon Dioxide 15 L BUN 72 H Creatinine 3.8 H Glucose POC Glucose Lactic Acid Calcium 6.0 L Phosphorus 4.60 H Magnesium 1.60 L Direct Bilirubin AST ALT Alkaline Phosphatase Lactate Dehydrogenase Troponin T C-Reactive Protein Total Protein Albumin Prealbumin Triglycerides Cholesterol LDL Cholesterol Direct HDL Cholesterol Urine pH Urine WBC (Auto) Urine Creatinine Urine Total Protein Fluid Total Protein Vancomycin Trough Rheumatoid Factor Complement C4 Miscellaneous Test Crossmatch 09/25/16 09/25/16 09/25/16 04:57 08:02 10:30 WBC RBC Hgb Hct MCV MCH MCHC RDW Plt Count Lymph % (Auto) [place] % (Auto) Lymph # [place] # Baso # Seg Neutrophils % Seg Neuts % (Manual) Lymphocytes % (Manual) Monocytes % (Manual) Eosinophils % (Manual) Basophils % (Manual) Nucleated RBC % Seg Neutrophils # Seg Neutrophils # Man Lymphocytes # (Manual) Monocytes # (Manual) Eosinophils # (Manual) Basophils # (Manual) PT INR Fibrinogen dRVVT Confirm Interp Factor V Activity POC ABG pH POC ABG pCO2 24.7 L POC ABG pO2 152 H ABG pO2 ABG HCO3 ABG Base Excess ABG Hemoglobin Oxyhemoglobin Sodium Potassium Chloride Carbon Dioxide BUN Creatinine Glucose POC Glucose 113 H Lactic Acid Calcium Phosphorus Magnesium Direct Bilirubin AST ALT Alkaline Phosphatase Lactate Dehydrogenase Troponin T C-Reactive Protein Total Protein Albumin Prealbumin Triglycerides Cholesterol LDL Cholesterol Direct HDL Cholesterol Urine pH Urine WBC (Auto) Urine Creatinine Urine Total Protein Fluid Total Protein Vancomycin Trough Rheumatoid Factor Complement C4 Miscellaneous Test Crossmatch See Detail 09/25/16 09/25/16 09/25/16 12:05 17:44 23:47 WBC RBC Hgb Hct MCV MCH MCHC RDW Plt Count Lymph % (Auto) [place] % (Auto) Lymph # [place] # Baso # Seg Neutrophils % Seg Neuts % (Manual) Lymphocytes % (Manual) Monocytes % (Manual) Eosinophils % (Manual) Basophils % (Manual) Nucleated RBC % Seg Neutrophils # Seg Neutrophils # Man Lymphocytes # (Manual) Monocytes # (Manual) Eosinophils # (Manual) Basophils # (Manual) PT INR Fibrinogen dRVVT Confirm Interp Factor V Activity POC ABG pH POC ABG pCO2 POC ABG pO2 ABG pO2 ABG HCO3 ABG Base Excess ABG Hemoglobin Oxyhemoglobin Sodium Potassium Chloride Carbon Dioxide BUN Creatinine Glucose POC Glucose 117 H 119 H 150 H Lactic Acid Calcium Phosphorus Magnesium Direct Bilirubin AST ALT Alkaline Phosphatase Lactate Dehydrogenase Troponin T C-Reactive Protein Total Protein Albumin Prealbumin Triglycerides Cholesterol LDL Cholesterol Direct HDL Cholesterol Urine pH Urine WBC (Auto) Urine Creatinine Urine Total Protein Fluid Total Protein Vancomycin Trough Rheumatoid Factor Complement C4 Miscellaneous Test Crossmatch 09/26/16 09/26/16 09/26/16 04:25 04:25 04:25 WBC RBC 2.65 L Hgb 7.4 L Hct 21.6 L MCV MCH MCHC RDW 22.5 H Plt Count Lymph % (Auto) [place] % (Auto) Lymph # [place] # Baso # Seg Neutrophils % Seg Neuts % (Manual) Lymphocytes % (Manual) 6.0 L Monocytes % (Manual) Eosinophils % (Manual) 11.0 H Basophils % (Manual) Nucleated RBC % Seg Neutrophils # Seg Neutrophils # Man Lymphocytes # (Manual) 0.4 L Monocytes # (Manual) Eosinophils # (Manual) 0.6 H Basophils # (Manual) PT INR Fibrinogen dRVVT Confirm Interp Factor V Activity POC ABG pH POC ABG pCO2 POC ABG pO2 ABG pO2 ABG HCO3 ABG Base Excess ABG Hemoglobin Oxyhemoglobin Sodium Potassium Chloride 97.0 L Carbon Dioxide 19 L BUN 43 H Creatinine 2.6 H Glucose 130 H POC Glucose Lactic Acid 4.40 H* Calcium 6.7 L Phosphorus Magnesium Direct Bilirubin AST ALT Alkaline Phosphatase Lactate Dehydrogenase Troponin T C-Reactive Protein Total Protein Albumin Prealbumin Triglycerides Cholesterol LDL Cholesterol Direct HDL Cholesterol Urine pH Urine WBC (Auto) Urine Creatinine Urine Total Protein Fluid Total Protein Vancomycin Trough Rheumatoid Factor Complement C4 Miscellaneous Test Crossmatch 09/26/16 09/26/16 09/26/16 05:20 11:44 12:12 WBC RBC Hgb Hct MCV MCH MCHC RDW Plt Count Lymph % (Auto) [place] % (Auto) Lymph # [place] # Baso # Seg Neutrophils % Seg Neuts % (Manual) Lymphocytes % (Manual) Monocytes % (Manual) Eosinophils % (Manual) Basophils % (Manual) Nucleated RBC % Seg Neutrophils # Seg Neutrophils # Man Lymphocytes # (Manual) Monocytes # (Manual) Eosinophils # (Manual) Basophils # (Manual) PT INR Fibrinogen dRVVT Confirm Interp Factor V Activity POC ABG pH POC ABG pCO2 27.0 L POC ABG pO2 69 L ABG pO2 ABG HCO3 ABG Base Excess ABG Hemoglobin Oxyhemoglobin Sodium Potassium Chloride Carbon Dioxide BUN Creatinine Glucose POC Glucose 121 H 128 H Lactic Acid Calcium Phosphorus Magnesium Direct Bilirubin AST ALT Alkaline Phosphatase Lactate Dehydrogenase Troponin T C-Reactive Protein Total Protein Albumin Prealbumin Triglycerides Cholesterol LDL Cholesterol Direct HDL Cholesterol Urine pH Urine WBC (Auto) Urine Creatinine Urine Total Protein Fluid Total Protein Vancomycin Trough Rheumatoid Factor Complement C4 Miscellaneous Test Crossmatch 09/26/16 09/26/16 09/27/16 18:31 23:40 08:20 WBC RBC Hgb Hct MCV MCH MCHC RDW Plt Count Lymph % (Auto) [place] % (Auto) Lymph # [place] # Baso # Seg Neutrophils % Seg Neuts % (Manual) Lymphocytes % (Manual) Monocytes % (Manual) Eosinophils % (Manual) Basophils % (Manual) Nucleated RBC % Seg Neutrophils # Seg Neutrophils # Man Lymphocytes # (Manual) Monocytes # (Manual) Eosinophils # (Manual) Basophils # (Manual) PT INR Fibrinogen dRVVT Confirm Interp Factor V Activity POC ABG pH POC ABG pCO2 POC ABG pO2 ABG pO2 ABG HCO3 ABG Base Excess ABG Hemoglobin Oxyhemoglobin Sodium Potassium Chloride Carbon Dioxide BUN Creatinine Glucose POC Glucose 120 H 133 H Lactic Acid 4.10 H* Calcium Phosphorus Magnesium Direct Bilirubin AST ALT Alkaline Phosphatase Lactate Dehydrogenase Troponin T C-Reactive Protein Total Protein Albumin Prealbumin Triglycerides Cholesterol LDL Cholesterol Direct HDL Cholesterol Urine pH Urine WBC (Auto) Urine Creatinine Urine Total Protein Fluid Total Protein Vancomycin Trough Rheumatoid Factor Complement C4 Miscellaneous Test Crossmatch 09/27/16 09/27/16 09/27/16 11:23 15:00 18:15 WBC RBC Hgb Hct MCV MCH MCHC RDW Plt Count Lymph % (Auto) [place] % (Auto) Lymph # [place] # Baso # Seg Neutrophils % Seg Neuts % (Manual) Lymphocytes % (Manual) Monocytes % (Manual) Eosinophils % (Manual) Basophils % (Manual) Nucleated RBC % Seg Neutrophils # Seg Neutrophils # Man Lymphocytes # (Manual) Monocytes # (Manual) Eosinophils # (Manual) Basophils # (Manual) PT INR Fibrinogen dRVVT Confirm Interp Factor V Activity POC ABG pH 7.459 H POC ABG pCO2 27.1 L POC ABG pO2 140 H ABG pO2 ABG HCO3 ABG Base Excess ABG Hemoglobin Oxyhemoglobin Sodium Potassium Chloride Carbon Dioxide BUN Creatinine Glucose POC Glucose 114 H 127 H Lactic Acid Calcium Phosphorus Magnesium Direct Bilirubin AST ALT Alkaline Phosphatase Lactate Dehydrogenase Troponin T C-Reactive Protein Total Protein Albumin Prealbumin Triglycerides Cholesterol LDL Cholesterol Direct HDL Cholesterol Urine pH Urine WBC (Auto) Urine Creatinine Urine Total Protein Fluid Total Protein Vancomycin Trough Rheumatoid Factor Complement C4 Miscellaneous Test Crossmatch 09/27/16 09/27/16 09/28/16 Unknown Unknown 03:45 WBC RBC 2.49 L Hgb 6.8 L Hct 20.7 L MCV MCH 27 L MCHC RDW 22.1 H Plt Count Lymph % (Auto) [place] % (Auto) Lymph # [place] # Baso # Seg Neutrophils % Seg Neuts % (Manual) 32.0 L Lymphocytes % (Manual) 12.0 L Monocytes % (Manual) 11.0 H Eosinophils % (Manual) 10.0 H Basophils % (Manual) Nucleated RBC % Seg Neutrophils # Seg Neutrophils # Man Lymphocytes # (Manual) 1.0 L Monocytes # (Manual) 0.9 H Eosinophils # (Manual) 0.8 H Basophils # (Manual) PT INR Fibrinogen dRVVT Confirm Interp Factor V Activity POC ABG pH POC ABG pCO2 POC ABG pO2 ABG pO2 ABG HCO3 ABG Base Excess ABG Hemoglobin Oxyhemoglobin Sodium 135 L 135 L Potassium 3.5 L Chloride 93.6 L 94.4 L Carbon Dioxide 17 L 21 L BUN 45 H 28 H Creatinine 3.3 H 2.5 H Glucose 106 H POC Glucose Lactic Acid Calcium 7.3 L 7.1 L Phosphorus Magnesium Direct Bilirubin AST ALT Alkaline Phosphatase Lactate Dehydrogenase Troponin T C-Reactive Protein Total Protein Albumin Prealbumin Triglycerides Cholesterol LDL Cholesterol Direct HDL Cholesterol Urine pH Urine WBC (Auto) Urine Creatinine Urine Total Protein Fluid Total Protein Vancomycin Trough Rheumatoid Factor Complement C4 Miscellaneous Test Crossmatch 09/28/16 09/28/16 09/28/16 03:45 07:25 11:58 WBC 13.3 H RBC 3.01 L Hgb 8.4 L Hct 25.0 L MCV MCH MCHC RDW 20.5 H Plt Count 128 L Lymph % (Auto) [place] % (Auto) Lymph # [place] # Baso # Seg Neutrophils % Seg Neuts % (Manual) Lymphocytes % (Manual) 7.0 L Monocytes % (Manual) Eosinophils % (Manual) 6.0 H Basophils % (Manual) Nucleated RBC % Seg Neutrophils # Seg Neutrophils # Man Lymphocytes # (Manual) 0.9 L Monocytes # (Manual) Eosinophils # (Manual) 0.8 H Basophils # (Manual) PT INR Fibrinogen dRVVT Confirm Interp Factor V Activity POC ABG pH POC ABG pCO2 POC ABG pO2 ABG pO2 ABG HCO3 ABG Base Excess ABG Hemoglobin Oxyhemoglobin Sodium Potassium Chloride Carbon Dioxide BUN Creatinine Glucose POC Glucose 121 H Lactic Acid 4.50 H* Calcium Phosphorus Magnesium Direct Bilirubin AST ALT Alkaline Phosphatase Lactate Dehydrogenase Troponin T C-Reactive Protein Total Protein Albumin Prealbumin Triglycerides Cholesterol LDL Cholesterol Direct HDL Cholesterol Urine pH Urine WBC (Auto) Urine Creatinine Urine Total Protein Fluid Total Protein Vancomycin Trough Rheumatoid Factor Complement C4 Miscellaneous Test Crossmatch 09/29/16 09/29/16 09/29/16 06:45 06:45 06:45 WBC 14.9 H RBC 2.74 L Hgb 7.6 L Hct 23.2 L MCV MCH MCHC RDW 20.5 H Plt Count 81 L Lymph % (Auto) [place] % (Auto) Lymph # [place] # Baso # Seg Neutrophils % Seg Neuts % (Manual) 81.0 H Lymphocytes % (Manual) 4.0 L Monocytes % (Manual) Eosinophils % (Manual) Basophils % (Manual) Nucleated RBC % Seg Neutrophils # Seg Neutrophils # Man 12.1 H Lymphocytes # (Manual) 0.6 L Monocytes # (Manual) Eosinophils # (Manual) Basophils # (Manual) PT INR Fibrinogen dRVVT Confirm Interp Factor V Activity POC ABG pH POC ABG pCO2 POC ABG pO2 ABG pO2 ABG HCO3 ABG Base Excess ABG Hemoglobin Oxyhemoglobin Sodium 133 L Potassium 3.4 L Chloride 92.5 L Carbon Dioxide 21 L BUN 33 H Creatinine 3.0 H Glucose POC Glucose Lactic Acid Calcium 6.6 L Phosphorus Magnesium 1.40 L Direct Bilirubin 0.9 H AST ALT Alkaline Phosphatase Lactate Dehydrogenase Troponin T C-Reactive Protein Total Protein 4.3 L Albumin 1.3 L Prealbumin Triglycerides Cholesterol LDL Cholesterol Direct HDL Cholesterol Urine pH Urine WBC (Auto) Urine Creatinine Urine Total Protein Fluid Total Protein Vancomycin Trough Rheumatoid Factor Complement C4 Miscellaneous Test Crossmatch 09/29/16 09/29/16 09/30/16 17:52 20:12 00:07 WBC RBC Hgb Hct MCV MCH MCHC RDW Plt Count Lymph % (Auto) [place] % (Auto) Lymph # [place] # Baso # Seg Neutrophils % Seg Neuts % (Manual) Lymphocytes % (Manual) Monocytes % (Manual) Eosinophils % (Manual) Basophils % (Manual) Nucleated RBC % Seg Neutrophils # Seg Neutrophils # Man Lymphocytes # (Manual) Monocytes # (Manual) Eosinophils # (Manual) Basophils # (Manual) PT INR Fibrinogen dRVVT Confirm Interp Factor V Activity POC ABG pH POC ABG pCO2 POC ABG pO2 ABG pO2 ABG HCO3 ABG Base Excess ABG Hemoglobin Oxyhemoglobin Sodium Potassium Chloride Carbon Dioxide BUN Creatinine Glucose POC Glucose 50 L 51 L Lactic Acid Calcium Phosphorus Magnesium Direct Bilirubin AST ALT Alkaline Phosphatase Lactate Dehydrogenase Troponin T 0.204 H* C-Reactive Protein Total Protein Albumin Prealbumin Triglycerides Cholesterol 31 L LDL Cholesterol Direct 4 L HDL Cholesterol 3 L Urine pH Urine WBC (Auto) Urine Creatinine Urine Total Protein Fluid Total Protein Vancomycin Trough Rheumatoid Factor Complement C4 Miscellaneous Test Crossmatch 09/30/16 09/30/16 09/30/16 01:30 05:15 06:10 WBC RBC Hgb Hct MCV MCH MCHC RDW Plt Count Lymph % (Auto) [place] % (Auto) Lymph # [place] # Baso # Seg Neutrophils % Seg Neuts % (Manual) Lymphocytes % (Manual) Monocytes % (Manual) Eosinophils % (Manual) Basophils % (Manual) Nucleated RBC % Seg Neutrophils # Seg Neutrophils # Man Lymphocytes # (Manual) Monocytes # (Manual) Eosinophils # (Manual) Basophils # (Manual) PT INR Fibrinogen dRVVT Confirm Interp Factor V Activity POC ABG pH POC ABG pCO2 POC ABG pO2 ABG pO2 ABG HCO3 ABG Base Excess ABG Hemoglobin Oxyhemoglobin Sodium 133 L Potassium 3.2 L Chloride 93.2 L Carbon Dioxide 19 L BUN 36 H Creatinine 3.2 H Glucose 104 H POC Glucose 167 H 146 H Lactic Acid Calcium 6.4 L Phosphorus Magnesium 1.60 L Direct Bilirubin AST ALT Alkaline Phosphatase Lactate Dehydrogenase Troponin T C-Reactive Protein Total Protein Albumin Prealbumin Triglycerides Cholesterol LDL Cholesterol Direct HDL Cholesterol Urine pH Urine WBC (Auto) Urine Creatinine Urine Total Protein Fluid Total Protein Vancomycin Trough Rheumatoid Factor Complement C4 Miscellaneous Test Crossmatch 09/30/16 09/30/16 09/30/16 11:26 13:39 18:38 WBC RBC Hgb Hct MCV MCH MCHC RDW Plt Count Lymph % (Auto) [place] % (Auto) Lymph # [place] # Baso # Seg Neutrophils % Seg Neuts % (Manual) Lymphocytes % (Manual) Monocytes % (Manual) Eosinophils % (Manual) Basophils % (Manual) Nucleated RBC % Seg Neutrophils # Seg Neutrophils # Man Lymphocytes # (Manual) Monocytes # (Manual) Eosinophils # (Manual) Basophils # (Manual) PT INR Fibrinogen dRVVT Confirm Interp Factor V Activity POC ABG pH 7.479 H POC ABG pCO2 29.8 L POC ABG pO2 117 H ABG pO2 ABG HCO3 ABG Base Excess ABG Hemoglobin Oxyhemoglobin Sodium Potassium Chloride Carbon Dioxide BUN Creatinine Glucose POC Glucose 140 H 122 H Lactic Acid Calcium Phosphorus Magnesium Direct Bilirubin AST ALT Alkaline Phosphatase Lactate Dehydrogenase Troponin T C-Reactive Protein Total Protein Albumin Prealbumin Triglycerides Cholesterol LDL Cholesterol Direct HDL Cholesterol Urine pH Urine WBC (Auto) Urine Creatinine Urine Total Protein Fluid Total Protein Vancomycin Trough Rheumatoid Factor Complement C4 Miscellaneous Test Crossmatch 10/01/16 10/01/16 10/01/16 06:00 06:00 12:37 WBC 12.6 H RBC 2.75 L Hgb 7.3 L Hct 23.3 L MCV MCH 27 L MCHC RDW 20.6 H Plt Count 72 L Lymph % (Auto) [place] % (Auto) Lymph # [place] # Baso # Seg Neutrophils % Seg Neuts % (Manual) 31.0 L Lymphocytes % (Manual) 8.0 L Monocytes % (Manual) Eosinophils % (Manual) Basophils % (Manual) Nucleated RBC % 3.0 H Seg Neutrophils # Seg Neutrophils # Man Lymphocytes # (Manual) 1.0 L Monocytes # (Manual) Eosinophils # (Manual) Basophils # (Manual) PT INR Fibrinogen dRVVT Confirm Interp Factor V Activity POC ABG pH POC ABG pCO2 POC ABG pO2 ABG pO2 ABG HCO3 ABG Base Excess ABG Hemoglobin Oxyhemoglobin Sodium 127 L Potassium Chloride 86.8 L Carbon Dioxide 20 L BUN 42 H Creatinine 3.5 H Glucose POC Glucose 65 L Lactic Acid Calcium 7.0 L Phosphorus Magnesium Direct Bilirubin AST ALT Alkaline Phosphatase Lactate Dehydrogenase Troponin T C-Reactive Protein Total Protein Albumin Prealbumin Triglycerides Cholesterol LDL Cholesterol Direct HDL Cholesterol Urine pH Urine WBC (Auto) Urine Creatinine Urine Total Protein Fluid Total Protein Vancomycin Trough Rheumatoid Factor Complement C4 Miscellaneous Test Crossmatch 10/01/16 10/01/16 10/02/16 17:39 23:32 00:59 WBC RBC Hgb Hct MCV MCH MCHC RDW Plt Count Lymph % (Auto) [place] % (Auto) Lymph # [place] # Baso # Seg Neutrophils % Seg Neuts % (Manual) Lymphocytes % (Manual) Monocytes % (Manual) Eosinophils % (Manual) Basophils % (Manual) Nucleated RBC % Seg Neutrophils # Seg Neutrophils # Man Lymphocytes # (Manual) Monocytes # (Manual) Eosinophils # (Manual) Basophils # (Manual) PT INR Fibrinogen dRVVT Confirm Interp Factor V Activity POC ABG pH POC ABG pCO2 POC ABG pO2 ABG pO2 ABG HCO3 ABG Base Excess ABG Hemoglobin Oxyhemoglobin Sodium Potassium Chloride Carbon Dioxide BUN Creatinine Glucose POC Glucose 107 H 52 L 145 H Lactic Acid Calcium Phosphorus Magnesium Direct Bilirubin AST ALT Alkaline Phosphatase Lactate Dehydrogenase Troponin T C-Reactive Protein Total Protein Albumin Prealbumin Triglycerides Cholesterol LDL Cholesterol Direct HDL Cholesterol Urine pH Urine WBC (Auto) Urine Creatinine Urine Total Protein Fluid Total Protein Vancomycin Trough Rheumatoid Factor Complement C4 Miscellaneous Test Crossmatch 10/02/16 10/02/16 10/02/16 10:30 10:50 10:50 WBC 14.7 H RBC 2.76 L Hgb 7.4 L Hct 23.6 L MCV MCH 27 L MCHC RDW 20.2 H Plt Count 79 L Lymph % (Auto) [place] % (Auto) Lymph # [place] # Baso # Seg Neutrophils % Seg Neuts % (Manual) 86.0 H Lymphocytes % (Manual) 6.0 L Monocytes % (Manual) Eosinophils % (Manual) Basophils % (Manual) Nucleated RBC % Seg Neutrophils # Seg Neutrophils # Man 12.6 H Lymphocytes # (Manual) 0.9 L Monocytes # (Manual) Eosinophils # (Manual) Basophils # (Manual) PT INR Fibrinogen dRVVT Confirm Interp Factor V Activity POC ABG pH 7.486 H POC ABG pCO2 30.1 L POC ABG pO2 108 H ABG pO2 ABG HCO3 ABG Base Excess ABG Hemoglobin Oxyhemoglobin Sodium 131 L Potassium 3.4 L Chloride 89.9 L Carbon Dioxide BUN 26 H Creatinine 2.6 H Glucose POC Glucose Lactic Acid Calcium 7.0 L Phosphorus Magnesium Direct Bilirubin AST ALT Alkaline Phosphatase Lactate Dehydrogenase Troponin T C-Reactive Protein Total Protein Albumin Prealbumin Triglycerides Cholesterol LDL Cholesterol Direct HDL Cholesterol Urine pH Urine WBC (Auto) Urine Creatinine Urine Total Protein Fluid Total Protein Vancomycin Trough Rheumatoid Factor Complement C4 Miscellaneous Test Crossmatch 10/02/16 10/03/16 10/03/16 23:45 00:45 05:10 WBC 12.9 H RBC 2.77 L Hgb 7.6 L Hct 23.7 L MCV MCH 27 L MCHC RDW 19.7 H Plt Count 89 L Lymph % (Auto) [place] % (Auto) Lymph # [place] # Baso # Seg Neutrophils % Seg Neuts % (Manual) Lymphocytes % (Manual) 8.0 L Monocytes % (Manual) Eosinophils % (Manual) Basophils % (Manual) Nucleated RBC % Seg Neutrophils # 11.9 H Seg Neutrophils # Man Lymphocytes # (Manual) 1.0 L Monocytes # (Manual) Eosinophils # (Manual) Basophils # (Manual) PT INR Fibrinogen dRVVT Confirm Interp Factor V Activity POC ABG pH POC ABG pCO2 POC ABG pO2 ABG pO2 ABG HCO3 ABG Base Excess ABG Hemoglobin Oxyhemoglobin Sodium Potassium Chloride Carbon Dioxide BUN Creatinine Glucose POC Glucose 55 L 199 H Lactic Acid Calcium Phosphorus Magnesium Direct Bilirubin AST ALT Alkaline Phosphatase Lactate Dehydrogenase Troponin T C-Reactive Protein Total Protein Albumin Prealbumin Triglycerides Cholesterol LDL Cholesterol Direct HDL Cholesterol Urine pH Urine WBC (Auto) Urine Creatinine Urine Total Protein Fluid Total Protein Vancomycin Trough Rheumatoid Factor Complement C4 Miscellaneous Test Crossmatch 10/03/16 10/03/16 10/03/16 05:10 12:14 13:18 WBC RBC Hgb Hct MCV MCH MCHC RDW Plt Count Lymph % (Auto) [place] % (Auto) Lymph # [place] # Baso # Seg Neutrophils % Seg Neuts % (Manual) Lymphocytes % (Manual) Monocytes % (Manual) Eosinophils % (Manual) Basophils % (Manual) Nucleated RBC % Seg Neutrophils # Seg Neutrophils # Man Lymphocytes # (Manual) Monocytes # (Manual) Eosinophils # (Manual) Basophils # (Manual) PT INR Fibrinogen dRVVT Confirm Interp Factor V Activity POC ABG pH POC ABG pCO2 POC ABG pO2 ABG pO2 ABG HCO3 ABG Base Excess ABG Hemoglobin Oxyhemoglobin Sodium 129 L Potassium 3.3 L Chloride 88.8 L Carbon Dioxide 20 L BUN 29 H Creatinine 2.8 H Glucose POC Glucose 68 L 127 H Lactic Acid Calcium 7.2 L Phosphorus Magnesium Direct Bilirubin AST ALT Alkaline Phosphatase Lactate Dehydrogenase Troponin T C-Reactive Protein Total Protein Albumin Prealbumin Triglycerides Cholesterol LDL Cholesterol Direct HDL Cholesterol Urine pH Urine WBC (Auto) Urine Creatinine Urine Total Protein Fluid Total Protein Vancomycin Trough Rheumatoid Factor Complement C4 Miscellaneous Test Crossmatch 10/03/16 10/03/16 10/03/16 14:42 18:21 19:09 WBC RBC Hgb Hct MCV MCH MCHC RDW Plt Count Lymph % (Auto) [place] % (Auto) Lymph # [place] # Baso # Seg Neutrophils % Seg Neuts % (Manual) Lymphocytes % (Manual) Monocytes % (Manual) Eosinophils % (Manual) Basophils % (Manual) Nucleated RBC % Seg Neutrophils # Seg Neutrophils # Man Lymphocytes # (Manual) Monocytes # (Manual) Eosinophils # (Manual) Basophils # (Manual) PT INR Fibrinogen dRVVT Confirm Interp Factor V Activity POC ABG pH 7.499 H POC ABG pCO2 28.4 L POC ABG pO2 44 L ABG pO2 ABG HCO3 ABG Base Excess ABG Hemoglobin Oxyhemoglobin Sodium Potassium Chloride Carbon Dioxide BUN Creatinine Glucose POC Glucose 64 L 205 H Lactic Acid Calcium Phosphorus Magnesium Direct Bilirubin AST ALT Alkaline Phosphatase Lactate Dehydrogenase Troponin T C-Reactive Protein Total Protein Albumin Prealbumin Triglycerides Cholesterol LDL Cholesterol Direct HDL Cholesterol Urine pH Urine WBC (Auto) Urine Creatinine Urine Total Protein Fluid Total Protein Vancomycin Trough Rheumatoid Factor Complement C4 Miscellaneous Test Crossmatch 10/03/16 10/04/16 10/04/16 23:33 04:18 06:30 WBC RBC 2.54 L Hgb 7.1 L Hct 21.7 L MCV MCH MCHC RDW 19.5 H Plt Count 76 L Lymph % (Auto) [place] % (Auto) Lymph # [place] # Baso # Seg Neutrophils % Seg Neuts % (Manual) 88.0 H Lymphocytes % (Manual) 6.0 L Monocytes % (Manual) Eosinophils % (Manual) Basophils % (Manual) Nucleated RBC % Seg Neutrophils # Seg Neutrophils # Man 8.8 H Lymphocytes # (Manual) 0.6 L Monocytes # (Manual) Eosinophils # (Manual) Basophils # (Manual) PT INR Fibrinogen dRVVT Confirm Interp Factor V Activity POC ABG pH 7.461 H POC ABG pCO2 33.6 L POC ABG pO2 211 H ABG pO2 ABG HCO3 ABG Base Excess ABG Hemoglobin Oxyhemoglobin Sodium Potassium Chloride Carbon Dioxide BUN Creatinine Glucose POC Glucose 136 H Lactic Acid Calcium Phosphorus Magnesium Direct Bilirubin AST ALT Alkaline Phosphatase Lactate Dehydrogenase Troponin T C-Reactive Protein Total Protein Albumin Prealbumin Triglycerides Cholesterol LDL Cholesterol Direct HDL Cholesterol Urine pH Urine WBC (Auto) Urine Creatinine Urine Total Protein Fluid Total Protein Vancomycin Trough Rheumatoid Factor Complement C4 Miscellaneous Test Crossmatch 10/04/16 10/04/16 10/04/16 06:30 11:45 17:54 WBC RBC Hgb Hct MCV MCH MCHC RDW Plt Count Lymph % (Auto) [place] % (Auto) Lymph # [place] # Baso # Seg Neutrophils % Seg Neuts % (Manual) Lymphocytes % (Manual) Monocytes % (Manual) Eosinophils % (Manual) Basophils % (Manual) Nucleated RBC % Seg Neutrophils # Seg Neutrophils # Man Lymphocytes # (Manual) Monocytes # (Manual) Eosinophils # (Manual) Basophils # (Manual) PT INR Fibrinogen dRVVT Confirm Interp Factor V Activity POC ABG pH POC ABG pCO2 POC ABG pO2 ABG pO2 ABG HCO3 ABG Base Excess ABG Hemoglobin Oxyhemoglobin Sodium 128 L Potassium Chloride 87.4 L Carbon Dioxide 20 L BUN 34 H Creatinine 2.9 H Glucose 127 H POC Glucose 158 H 160 H Lactic Acid Calcium 7.4 L Phosphorus Magnesium Direct Bilirubin AST ALT Alkaline Phosphatase Lactate Dehydrogenase Troponin T C-Reactive Protein Total Protein Albumin Prealbumin Triglycerides Cholesterol LDL Cholesterol Direct HDL Cholesterol Urine pH Urine WBC (Auto) Urine Creatinine Urine Total Protein Fluid Total Protein Vancomycin Trough Rheumatoid Factor Complement C4 Miscellaneous Test Crossmatch 10/04/16 10/05/16 10/05/16 23:25 04:30 05:00 WBC RBC 2.64 L Hgb 7.5 L Hct 22.6 L MCV MCH MCHC RDW 19.3 H Plt Count 80 L Lymph % (Auto) [place] % (Auto) Lymph # [place] # Baso # Seg Neutrophils % Seg Neuts % (Manual) Lymphocytes % (Manual) 12.0 L Monocytes % (Manual) Eosinophils % (Manual) Basophils % (Manual) Nucleated RBC % Seg Neutrophils # Seg Neutrophils # Man Lymphocytes # (Manual) Monocytes # (Manual) Eosinophils # (Manual) Basophils # (Manual) PT INR Fibrinogen dRVVT Confirm Interp Factor V Activity POC ABG pH 7.475 H POC ABG pCO2 33.3 L POC ABG pO2 140 H ABG pO2 ABG HCO3 ABG Base Excess ABG Hemoglobin Oxyhemoglobin Sodium Potassium Chloride Carbon Dioxide BUN Creatinine Glucose POC Glucose 141 H Lactic Acid Calcium Phosphorus Magnesium Direct Bilirubin AST ALT Alkaline Phosphatase Lactate Dehydrogenase Troponin T C-Reactive Protein Total Protein Albumin Prealbumin Triglycerides Cholesterol LDL Cholesterol Direct HDL Cholesterol Urine pH Urine WBC (Auto) Urine Creatinine Urine Total Protein Fluid Total Protein Vancomycin Trough Rheumatoid Factor Complement C4 Miscellaneous Test Crossmatch 10/05/16 10/05/16 10/05/16 05:00 05:09 12:58 WBC RBC Hgb Hct MCV MCH MCHC RDW Plt Count Lymph % (Auto) [place] % (Auto) Lymph # [place] # Baso # Seg Neutrophils % Seg Neuts % (Manual) Lymphocytes % (Manual) Monocytes % (Manual) Eosinophils % (Manual) Basophils % (Manual) Nucleated RBC % Seg Neutrophils # Seg Neutrophils # Man Lymphocytes # (Manual) Monocytes # (Manual) Eosinophils # (Manual) Basophils # (Manual) PT INR Fibrinogen dRVVT Confirm Interp Factor V Activity POC ABG pH POC ABG pCO2 POC ABG pO2 ABG pO2 ABG HCO3 ABG Base Excess ABG Hemoglobin Oxyhemoglobin Sodium 131 L Potassium Chloride 94.0 L Carbon Dioxide 20 L BUN 22 H Creatinine 2.0 H Glucose 123 H POC Glucose 166 H 179 H Lactic Acid Calcium 7.7 L Phosphorus 2.20 L D Magnesium Direct Bilirubin AST ALT Alkaline Phosphatase Lactate Dehydrogenase Troponin T C-Reactive Protein Total Protein Albumin Prealbumin Triglycerides Cholesterol LDL Cholesterol Direct HDL Cholesterol Urine pH Urine WBC (Auto) Urine Creatinine Urine Total Protein Fluid Total Protein Vancomycin Trough Rheumatoid Factor Complement C4 Miscellaneous Test Crossmatch 10/05/16 10/05/16 10/05/16 15:50 18:53 23:12 WBC RBC Hgb Hct MCV MCH MCHC RDW Plt Count Lymph % (Auto) [place] % (Auto) Lymph # [place] # Baso # Seg Neutrophils % Seg Neuts % (Manual) Lymphocytes % (Manual) Monocytes % (Manual) Eosinophils % (Manual) Basophils % (Manual) Nucleated RBC % Seg Neutrophils # Seg Neutrophils # Man Lymphocytes # (Manual) Monocytes # (Manual) Eosinophils # (Manual) Basophils # (Manual) PT INR Fibrinogen dRVVT Confirm Interp Factor V Activity POC ABG pH POC ABG pCO2 POC ABG pO2 ABG pO2 ABG HCO3 ABG Base Excess ABG Hemoglobin Oxyhemoglobin Sodium Potassium Chloride Carbon Dioxide BUN Creatinine Glucose POC Glucose 150 H 164 H Lactic Acid Calcium Phosphorus Magnesium Direct Bilirubin AST ALT Alkaline Phosphatase Lactate Dehydrogenase Troponin T C-Reactive Protein Total Protein Albumin Prealbumin Triglycerides Cholesterol LDL Cholesterol Direct HDL Cholesterol Urine pH Urine WBC (Auto) Urine Creatinine Urine Total Protein Fluid Total Protein Vancomycin Trough Rheumatoid Factor Complement C4 Miscellaneous Test Crossmatch See Detail 10/06/16 10/06/16 10/06/16 03:50 03:50 04:53 WBC RBC 3.00 L Hgb 8.6 L Hct 25.8 L MCV MCH MCHC RDW 17.9 H Plt Count 65 L Lymph % (Auto) [place] % (Auto) Lymph # [place] # Baso # Seg Neutrophils % Seg Neuts % (Manual) 30.0 L Lymphocytes % (Manual) 5.0 L Monocytes % (Manual) Eosinophils % (Manual) Basophils % (Manual) Nucleated RBC % Seg Neutrophils # Seg Neutrophils # Man Lymphocytes # (Manual) 0.4 L Monocytes # (Manual) Eosinophils # (Manual) Basophils # (Manual) PT INR Fibrinogen dRVVT Confirm Interp Factor V Activity POC ABG pH 7.310 L POC ABG pCO2 49.0 H POC ABG pO2 ABG pO2 ABG HCO3 ABG Base Excess ABG Hemoglobin Oxyhemoglobin Sodium 133 L Potassium Chloride 95.9 L Carbon Dioxide BUN 26 H Creatinine 2.0 H Glucose 116 H POC Glucose Lactic Acid Calcium 7.8 L Phosphorus Magnesium Direct Bilirubin AST ALT Alkaline Phosphatase Lactate Dehydrogenase Troponin T C-Reactive Protein Total Protein Albumin Prealbumin Triglycerides Cholesterol LDL Cholesterol Direct HDL Cholesterol Urine pH Urine WBC (Auto) Urine Creatinine Urine Total Protein Fluid Total Protein Vancomycin Trough Rheumatoid Factor Complement C4 Miscellaneous Test Crossmatch 10/06/16 10/06/16 10/06/16 05:23 11:52 18:34 WBC RBC Hgb Hct MCV MCH MCHC RDW Plt Count Lymph % (Auto) [place] % (Auto) Lymph # [place] # Baso # Seg Neutrophils % Seg Neuts % (Manual) Lymphocytes % (Manual) Monocytes % (Manual) Eosinophils % (Manual) Basophils % (Manual) Nucleated RBC % Seg Neutrophils # Seg Neutrophils # Man Lymphocytes # (Manual) Monocytes # (Manual) Eosinophils # (Manual) Basophils # (Manual) PT INR Fibrinogen dRVVT Confirm Interp Factor V Activity POC ABG pH POC ABG pCO2 POC ABG pO2 ABG pO2 ABG HCO3 ABG Base Excess ABG Hemoglobin Oxyhemoglobin Sodium Potassium Chloride Carbon Dioxide BUN Creatinine Glucose POC Glucose 126 H 116 H 129 H Lactic Acid Calcium Phosphorus Magnesium Direct Bilirubin AST ALT Alkaline Phosphatase Lactate Dehydrogenase Troponin T C-Reactive Protein Total Protein Albumin Prealbumin Triglycerides Cholesterol LDL Cholesterol Direct HDL Cholesterol Urine pH Urine WBC (Auto) Urine Creatinine Urine Total Protein Fluid Total Protein Vancomycin Trough Rheumatoid Factor Complement C4 Miscellaneous Test Crossmatch 10/07/16 10/07/16 10/07/16 03:45 05:00 10:00 WBC 17.0 H RBC 2.68 L Hgb 7.3 L Hct 25.3 L MCV MCH 27 L MCHC 29 L RDW 19.6 H Plt Count 74 L Lymph % (Auto) [place] % (Auto) Lymph # [place] # Baso # Seg Neutrophils % Seg Neuts % (Manual) Lymphocytes % (Manual) 12.0 L Monocytes % (Manual) Eosinophils % (Manual) Basophils % (Manual) Nucleated RBC % 4.0 H Seg Neutrophils # Seg Neutrophils # Man 10.7 H Lymphocytes # (Manual) Monocytes # (Manual) Eosinophils # (Manual) Basophils # (Manual) PT INR Fibrinogen dRVVT Confirm Interp Factor V Activity POC ABG pH POC ABG pCO2 POC ABG pO2 ABG pO2 ABG HCO3 ABG Base Excess ABG Hemoglobin Oxyhemoglobin Sodium 130 L Potassium 3.2 L Chloride 93.9 L Carbon Dioxide 20 L BUN 44 H Creatinine 2.7 H Glucose 129 H POC Glucose Lactic Acid Calcium 7.4 L Phosphorus Magnesium Direct Bilirubin AST ALT 6 L Alkaline Phosphatase 195 H Lactate Dehydrogenase Troponin T C-Reactive Protein Total Protein 4.9 L Albumin 1.0 L Prealbumin Triglycerides Cholesterol LDL Cholesterol Direct HDL Cholesterol Urine pH Urine WBC (Auto) Urine Creatinine Urine Total Protein Fluid Total Protein Vancomycin Trough Rheumatoid Factor Complement C4 Miscellaneous Test Flexitest 1 H Crossmatch 10/07/16 10/07/16 10/07/16 10:00 11:24 18:10 WBC RBC Hgb Hct MCV MCH MCHC RDW Plt Count Lymph % (Auto) [place] % (Auto) Lymph # [place] # Baso # Seg Neutrophils % Seg Neuts % (Manual) Lymphocytes % (Manual) Monocytes % (Manual) Eosinophils % (Manual) Basophils % (Manual) Nucleated RBC % Seg Neutrophils # Seg Neutrophils # Man Lymphocytes # (Manual) Monocytes # (Manual) Eosinophils # (Manual) Basophils # (Manual) PT INR Fibrinogen dRVVT Confirm Interp Factor V Activity POC ABG pH POC ABG pCO2 POC ABG pO2 ABG pO2 ABG HCO3 ABG Base Excess ABG Hemoglobin Oxyhemoglobin Sodium Potassium Chloride Carbon Dioxide BUN Creatinine Glucose POC Glucose 116 H 130 H Lactic Acid Calcium Phosphorus Magnesium Direct Bilirubin AST ALT Alkaline Phosphatase Lactate Dehydrogenase Troponin T C-Reactive Protein 19.40 H Total Protein Albumin Prealbumin Triglycerides Cholesterol LDL Cholesterol Direct HDL Cholesterol Urine pH Urine WBC (Auto) Urine Creatinine Urine Total Protein Fluid Total Protein Vancomycin Trough Rheumatoid Factor Complement C4 Miscellaneous Test Crossmatch 10/07/16 10/08/16 10/08/16 18:30 00:00 04:00 WBC RBC Hgb Hct MCV MCH MCHC RDW Plt Count Lymph % (Auto) [place] % (Auto) Lymph # [place] # Baso # Seg Neutrophils % Seg Neuts % (Manual) Lymphocytes % (Manual) Monocytes % (Manual) Eosinophils % (Manual) Basophils % (Manual) Nucleated RBC % Seg Neutrophils # Seg Neutrophils # Man Lymphocytes # (Manual) Monocytes # (Manual) Eosinophils # (Manual) Basophils # (Manual) PT INR Fibrinogen dRVVT Confirm Interp Factor V Activity POC ABG pH POC ABG pCO2 POC ABG pO2 ABG pO2 ABG HCO3 ABG Base Excess ABG Hemoglobin Oxyhemoglobin Sodium 132 L Potassium 3.3 L Chloride 93.6 L Carbon Dioxide 17 L BUN 59 H Creatinine 2.7 H Glucose 121 H POC Glucose 122 H Lactic Acid Calcium 7.6 L Phosphorus Magnesium Direct Bilirubin AST ALT Alkaline Phosphatase Lactate Dehydrogenase Troponin T C-Reactive Protein Total Protein Albumin Prealbumin Triglycerides Cholesterol LDL Cholesterol Direct HDL Cholesterol Urine pH Urine WBC (Auto) > 182.0 H Urine Creatinine Urine Total Protein Fluid Total Protein Vancomycin Trough Rheumatoid Factor Complement C4 Miscellaneous Test Crossmatch 10/08/16 10/08/16 10/08/16 04:30 05:30 11:51 WBC RBC 5.15 H Hgb 14.4 H D Hct 44.5 H D MCV MCH MCHC RDW 19.5 H Plt Count 56 L Lymph % (Auto) [place] % (Auto) Lymph # [place] # Baso # Seg Neutrophils % Seg Neuts % (Manual) 24.0 L Lymphocytes % (Manual) 8.0 L Monocytes % (Manual) Eosinophils % (Manual) Basophils % (Manual) Nucleated RBC % 9.0 H Seg Neutrophils # Seg Neutrophils # Man Lymphocytes # (Manual) 0.7 L Monocytes # (Manual) Eosinophils # (Manual) Basophils # (Manual) PT INR Fibrinogen dRVVT Confirm Interp Factor V Activity POC ABG pH POC ABG pCO2 POC ABG pO2 ABG pO2 ABG HCO3 ABG Base Excess ABG Hemoglobin Oxyhemoglobin Sodium Potassium Chloride Carbon Dioxide BUN Creatinine Glucose POC Glucose 125 H 150 H Lactic Acid Calcium Phosphorus Magnesium Direct Bilirubin AST ALT Alkaline Phosphatase Lactate Dehydrogenase Troponin T C-Reactive Protein Total Protein Albumin Prealbumin Triglycerides Cholesterol LDL Cholesterol Direct HDL Cholesterol Urine pH Urine WBC (Auto) Urine Creatinine Urine Total Protein Fluid Total Protein Vancomycin Trough Rheumatoid Factor Complement C4 Miscellaneous Test Crossmatch 10/08/16 10/08/16 10/08/16 12:49 17:07 19:30 WBC RBC Hgb 7.1 L D Hct 22.4 L D MCV MCH MCHC RDW Plt Count Lymph % (Auto) [place] % (Auto) Lymph # [place] # Baso # Seg Neutrophils % Seg Neuts % (Manual) Lymphocytes % (Manual) Monocytes % (Manual) Eosinophils % (Manual) Basophils % (Manual) Nucleated RBC % Seg Neutrophils # Seg Neutrophils # Man Lymphocytes # (Manual) Monocytes # (Manual) Eosinophils # (Manual) Basophils # (Manual) PT INR Fibrinogen dRVVT Confirm Interp Factor V Activity POC ABG pH POC ABG pCO2 28.2 L POC ABG pO2 111 H ABG pO2 ABG HCO3 ABG Base Excess ABG Hemoglobin Oxyhemoglobin Sodium Potassium Chloride Carbon Dioxide BUN Creatinine Glucose POC Glucose 145 H Lactic Acid Calcium Phosphorus Magnesium Direct Bilirubin AST ALT Alkaline Phosphatase Lactate Dehydrogenase Troponin T C-Reactive Protein Total Protein Albumin Prealbumin Triglycerides Cholesterol LDL Cholesterol Direct HDL Cholesterol Urine pH Urine WBC (Auto) Urine Creatinine Urine Total Protein Fluid Total Protein Vancomycin Trough Rheumatoid Factor Complement C4 Miscellaneous Test Crossmatch 10/08/16 10/09/16 10/09/16 19:30 03:45 03:45 WBC 12.6 H RBC 2.36 L Hgb 6.7 L Hct 21.1 L MCV MCH MCHC RDW 19.5 H Plt Count 75 L Lymph % (Auto) [place] % (Auto) Lymph # [place] # Baso # Seg Neutrophils % Seg Neuts % (Manual) Lymphocytes % (Manual) Monocytes % (Manual) 10.0 H Eosinophils % (Manual) Basophils % (Manual) Nucleated RBC % 3.0 H Seg Neutrophils # Seg Neutrophils # Man Lymphocytes # (Manual) Monocytes # (Manual) 1.3 H Eosinophils # (Manual) Basophils # (Manual) PT 18.0 H INR 1.41 H Fibrinogen dRVVT Confirm Interp Factor V Activity POC ABG pH POC ABG pCO2 POC ABG pO2 ABG pO2 ABG HCO3 ABG Base Excess ABG Hemoglobin Oxyhemoglobin Sodium 135 L Potassium Chloride Carbon Dioxide 17 L BUN 81 H Creatinine 3.2 H Glucose 109 H POC Glucose Lactic Acid Calcium 7.4 L Phosphorus 4.60 H D Magnesium Direct Bilirubin AST ALT Alkaline Phosphatase Lactate Dehydrogenase Troponin T C-Reactive Protein Total Protein Albumin Prealbumin Triglycerides Cholesterol LDL Cholesterol Direct HDL Cholesterol Urine pH Urine WBC (Auto) Urine Creatinine Urine Total Protein Fluid Total Protein Vancomycin Trough Rheumatoid Factor Complement C4 Miscellaneous Test Crossmatch 10/09/16 10/09/16 10/09/16 03:45 05:14 07:20 WBC RBC Hgb Hct MCV MCH MCHC RDW Plt Count Lymph % (Auto) [place] % (Auto) Lymph # [place] # Baso # Seg Neutrophils % Seg Neuts % (Manual) Lymphocytes % (Manual) Monocytes % (Manual) Eosinophils % (Manual) Basophils % (Manual) Nucleated RBC % Seg Neutrophils # Seg Neutrophils # Man Lymphocytes # (Manual) Monocytes # (Manual) Eosinophils # (Manual) Basophils # (Manual) PT 19.0 H INR 1.51 H Fibrinogen dRVVT Confirm Interp Factor V Activity POC ABG pH POC ABG pCO2 POC ABG pO2 ABG pO2 ABG HCO3 ABG Base Excess ABG Hemoglobin Oxyhemoglobin Sodium Potassium Chloride Carbon Dioxide BUN Creatinine Glucose POC Glucose 151 H Lactic Acid Calcium Phosphorus Magnesium Direct Bilirubin AST ALT Alkaline Phosphatase Lactate Dehydrogenase Troponin T C-Reactive Protein Total Protein Albumin Prealbumin Triglycerides Cholesterol LDL Cholesterol Direct HDL Cholesterol Urine pH Urine WBC (Auto) Urine Creatinine Urine Total Protein Fluid Total Protein Vancomycin Trough Rheumatoid Factor Complement C4 Miscellaneous Test Crossmatch See Detail 10/09/16 10/09/16 10/09/16 11:46 16:20 16:43 WBC RBC Hgb 7.2 L Hct 22.2 L MCV MCH MCHC RDW Plt Count Lymph % (Auto) [place] % (Auto) Lymph # [place] # Baso # Seg Neutrophils % Seg Neuts % (Manual) Lymphocytes % (Manual) Monocytes % (Manual) Eosinophils % (Manual) Basophils % (Manual) Nucleated RBC % Seg Neutrophils # Seg Neutrophils # Man Lymphocytes # (Manual) Monocytes # (Manual) Eosinophils # (Manual) Basophils # (Manual) PT INR Fibrinogen dRVVT Confirm Interp Factor V Activity POC ABG pH POC ABG pCO2 POC ABG pO2 ABG pO2 ABG HCO3 ABG Base Excess ABG Hemoglobin Oxyhemoglobin Sodium Potassium Chloride Carbon Dioxide BUN Creatinine Glucose POC Glucose 133 H 141 H Lactic Acid Calcium Phosphorus Magnesium Direct Bilirubin AST ALT Alkaline Phosphatase Lactate Dehydrogenase Troponin T C-Reactive Protein Total Protein Albumin Prealbumin Triglycerides Cholesterol LDL Cholesterol Direct HDL Cholesterol Urine pH Urine WBC (Auto) Urine Creatinine Urine Total Protein Fluid Total Protein Vancomycin Trough Rheumatoid Factor Complement C4 Miscellaneous Test Crossmatch 10/10/16 10/10/16 10/10/16 05:00 05:00 11:19 WBC 18.5 H RBC 2.19 L Hgb 6.4 L Hct 19.6 L* MCV MCH MCHC RDW 19.3 H Plt Count 93 L Lymph % (Auto) [place] % (Auto) Lymph # [place] # Baso # Seg Neutrophils % Seg Neuts % (Manual) Lymphocytes % (Manual) 10.0 L Monocytes % (Manual) Eosinophils % (Manual) Basophils % (Manual) Nucleated RBC % 4.0 H Seg Neutrophils # Seg Neutrophils # Man 11.3 H Lymphocytes # (Manual) Monocytes # (Manual) Eosinophils # (Manual) Basophils # (Manual) PT INR Fibrinogen dRVVT Confirm Interp Factor V Activity POC ABG pH POC ABG pCO2 POC ABG pO2 ABG pO2 ABG HCO3 ABG Base Excess ABG Hemoglobin Oxyhemoglobin Sodium Potassium 5.7 H D Chloride Carbon Dioxide 16 L BUN 94 H Creatinine 3.1 H Glucose 131 H POC Glucose 153 H Lactic Acid Calcium 8.2 L Phosphorus 5.10 H Magnesium 2.40 H Direct Bilirubin 0.3 H AST ALT < 5 L Alkaline Phosphatase 319 H Lactate Dehydrogenase Troponin T C-Reactive Protein Total Protein 5.1 L Albumin 1.0 L Prealbumin Triglycerides Cholesterol LDL Cholesterol Direct HDL Cholesterol Urine pH Urine WBC (Auto) Urine Creatinine Urine Total Protein Fluid Total Protein Vancomycin Trough Rheumatoid Factor Complement C4 Miscellaneous Test Crossmatch 10/10/16 10/10/16 10/11/16 17:50 23:30 04:15 WBC RBC Hgb Hct MCV MCH MCHC RDW Plt Count Lymph % (Auto) [place] % (Auto) Lymph # [place] # Baso # Seg Neutrophils % Seg Neuts % (Manual) Lymphocytes % (Manual) Monocytes % (Manual) Eosinophils % (Manual) Basophils % (Manual) Nucleated RBC % Seg Neutrophils # Seg Neutrophils # Man Lymphocytes # (Manual) Monocytes # (Manual) Eosinophils # (Manual) Basophils # (Manual) PT INR Fibrinogen dRVVT Confirm Interp Factor V Activity POC ABG pH POC ABG pCO2 POC ABG pO2 ABG pO2 ABG HCO3 ABG Base Excess ABG Hemoglobin Oxyhemoglobin Sodium Potassium Chloride 96.4 L Carbon Dioxide 21 L BUN 57 H Creatinine 2.1 H Glucose 151 H POC Glucose 146 H 141 H Lactic Acid Calcium 8.3 L Phosphorus Magnesium Direct Bilirubin AST ALT Alkaline Phosphatase Lactate Dehydrogenase Troponin T C-Reactive Protein Total Protein Albumin Prealbumin Triglycerides Cholesterol LDL Cholesterol Direct HDL Cholesterol Urine pH Urine WBC (Auto) Urine Creatinine Urine Total Protein Fluid Total Protein Vancomycin Trough Rheumatoid Factor Complement C4 Miscellaneous Test Crossmatch 10/11/16 10/11/16 10/11/16 04:15 04:15 05:30 WBC 28.3 H RBC 3.12 L Hgb 9.3 L Hct 28.7 L D MCV MCH MCHC RDW 17.7 H Plt Count 128 L Lymph % (Auto) [place] % (Auto) Lymph # [place] # Baso # Seg Neutrophils % Seg Neuts % (Manual) Lymphocytes % (Manual) Monocytes % (Manual) Eosinophils % (Manual) Basophils % (Manual) Nucleated RBC % Seg Neutrophils # Seg Neutrophils # Man Lymphocytes # (Manual) Monocytes # (Manual) Eosinophils # (Manual) Basophils # (Manual) PT INR Fibrinogen dRVVT Confirm Interp Factor V Activity POC ABG pH POC ABG pCO2 POC ABG pO2 ABG pO2 ABG HCO3 ABG Base Excess ABG Hemoglobin Oxyhemoglobin Sodium Potassium Chloride Carbon Dioxide BUN Creatinine Glucose POC Glucose 167 H Lactic Acid Calcium Phosphorus Magnesium Direct Bilirubin AST ALT Alkaline Phosphatase Lactate Dehydrogenase Troponin T C-Reactive Protein 15.80 H Total Protein Albumin Prealbumin Triglycerides Cholesterol LDL Cholesterol Direct HDL Cholesterol Urine pH Urine WBC (Auto) Urine Creatinine Urine Total Protein Fluid Total Protein Vancomycin Trough Rheumatoid Factor Complement C4 Miscellaneous Test Crossmatch 10/11/16 10/11/16 10/11/16 11:40 15:49 23:57 WBC RBC Hgb Hct MCV MCH MCHC RDW Plt Count Lymph % (Auto) [place] % (Auto) Lymph # [place] # Baso # Seg Neutrophils % Seg Neuts % (Manual) Lymphocytes % (Manual) Monocytes % (Manual) Eosinophils % (Manual) Basophils % (Manual) Nucleated RBC % Seg Neutrophils # Seg Neutrophils # Man Lymphocytes # (Manual) Monocytes # (Manual) Eosinophils # (Manual) Basophils # (Manual) PT INR Fibrinogen dRVVT Confirm Interp Factor V Activity POC ABG pH POC ABG pCO2 POC ABG pO2 ABG pO2 ABG HCO3 ABG Base Excess ABG Hemoglobin Oxyhemoglobin Sodium Potassium Chloride Carbon Dioxide BUN Creatinine Glucose POC Glucose 139 H 168 H 161 H Lactic Acid Calcium Phosphorus Magnesium Direct Bilirubin AST ALT Alkaline Phosphatase Lactate Dehydrogenase Troponin T C-Reactive Protein Total Protein Albumin Prealbumin Triglycerides Cholesterol LDL Cholesterol Direct HDL Cholesterol Urine pH Urine WBC (Auto) Urine Creatinine Urine Total Protein Fluid Total Protein Vancomycin Trough Rheumatoid Factor Complement C4 Miscellaneous Test Crossmatch 10/12/16 10/12/16 10/12/16 04:40 04:40 05:44 WBC 22.5 H RBC 2.88 L Hgb 8.8 L Hct 26.8 L MCV MCH MCHC RDW 17.8 H Plt Count Lymph % (Auto) [place] % (Auto) Lymph # [place] # Baso # Seg Neutrophils % Seg Neuts % (Manual) Lymphocytes % (Manual) Monocytes % (Manual) Eosinophils % (Manual) Basophils % (Manual) Nucleated RBC % Seg Neutrophils # Seg Neutrophils # Man Lymphocytes # (Manual) Monocytes # (Manual) Eosinophils # (Manual) Basophils # (Manual) PT INR Fibrinogen dRVVT Confirm Interp Factor V Activity POC ABG pH POC ABG pCO2 POC ABG pO2 ABG pO2 ABG HCO3 ABG Base Excess ABG Hemoglobin Oxyhemoglobin Sodium 134 L Potassium Chloride 93.0 L Carbon Dioxide BUN 74 H Creatinine 2.5 H Glucose 137 H POC Glucose 158 H Lactic Acid Calcium 8.2 L Phosphorus Magnesium Direct Bilirubin AST ALT Alkaline Phosphatase Lactate Dehydrogenase Troponin T C-Reactive Protein Total Protein Albumin Prealbumin Triglycerides Cholesterol LDL Cholesterol Direct HDL Cholesterol Urine pH Urine WBC (Auto) Urine Creatinine Urine Total Protein Fluid Total Protein Vancomycin Trough Rheumatoid Factor Complement C4 Miscellaneous Test Crossmatch 10/12/16 10/12/16 10/12/16 12:27 18:18 23:46 WBC RBC Hgb Hct MCV MCH MCHC RDW Plt Count Lymph % (Auto) [place] % (Auto) Lymph # [place] # Baso # Seg Neutrophils % Seg Neuts % (Manual) Lymphocytes % (Manual) Monocytes % (Manual) Eosinophils % (Manual) Basophils % (Manual) Nucleated RBC % Seg Neutrophils # Seg Neutrophils # Man Lymphocytes # (Manual) Monocytes # (Manual) Eosinophils # (Manual) Basophils # (Manual) PT INR Fibrinogen dRVVT Confirm Interp Factor V Activity POC ABG pH POC ABG pCO2 POC ABG pO2 ABG pO2 ABG HCO3 ABG Base Excess ABG Hemoglobin Oxyhemoglobin Sodium Potassium Chloride Carbon Dioxide BUN Creatinine Glucose POC Glucose 153 H 140 H 150 H Lactic Acid Calcium Phosphorus Magnesium Direct Bilirubin AST ALT Alkaline Phosphatase Lactate Dehydrogenase Troponin T C-Reactive Protein Total Protein Albumin Prealbumin Triglycerides Cholesterol LDL Cholesterol Direct HDL Cholesterol Urine pH Urine WBC (Auto) Urine Creatinine Urine Total Protein Fluid Total Protein Vancomycin Trough Rheumatoid Factor Complement C4 Miscellaneous Test Crossmatch 10/13/16 10/13/16 10/13/16 06:22 09:20 12:29 WBC RBC Hgb Hct MCV MCH MCHC RDW Plt Count Lymph % (Auto) [place] % (Auto) Lymph # [place] # Baso # Seg Neutrophils % Seg Neuts % (Manual) Lymphocytes % (Manual) Monocytes % (Manual) Eosinophils % (Manual) Basophils % (Manual) Nucleated RBC % Seg Neutrophils # Seg Neutrophils # Man Lymphocytes # (Manual) Monocytes # (Manual) Eosinophils # (Manual) Basophils # (Manual) PT INR Fibrinogen dRVVT Confirm Interp Factor V Activity POC ABG pH POC ABG pCO2 POC ABG pO2 ABG pO2 ABG HCO3 ABG Base Excess ABG Hemoglobin Oxyhemoglobin Sodium Potassium Chloride Carbon Dioxide BUN Creatinine Glucose POC Glucose 165 H 193 H Lactic Acid Calcium Phosphorus Magnesium Direct Bilirubin AST ALT Alkaline Phosphatase Lactate Dehydrogenase Troponin T C-Reactive Protein Total Protein Albumin Prealbumin Triglycerides Cholesterol LDL Cholesterol Direct HDL Cholesterol Urine pH Urine WBC (Auto) Urine Creatinine Urine Total Protein Fluid Total Protein Vancomycin Trough Rheumatoid Factor Complement C4 Miscellaneous Test Flexitest 1 H Crossmatch 10/13/16 10/13/16 10/13/16 18:09 Unknown Unknown WBC 23.4 H RBC 2.83 L Hgb 8.7 L Hct 26.1 L MCV MCH MCHC RDW 18.1 H Plt Count Lymph % (Auto) [place] % (Auto) Lymph # [place] # Baso # Seg Neutrophils % Seg Neuts % (Manual) Lymphocytes % (Manual) Monocytes % (Manual) Eosinophils % (Manual) Basophils % (Manual) Nucleated RBC % Seg Neutrophils # Seg Neutrophils # Man Lymphocytes # (Manual) Monocytes # (Manual) Eosinophils # (Manual) Basophils # (Manual) PT INR Fibrinogen dRVVT Confirm Interp Factor V Activity POC ABG pH POC ABG pCO2 POC ABG pO2 ABG pO2 ABG HCO3 ABG Base Excess ABG Hemoglobin Oxyhemoglobin Sodium Potassium Chloride 95.8 L Carbon Dioxide BUN 82 H Creatinine 2.6 H Glucose 152 H POC Glucose 166 H Lactic Acid Calcium Phosphorus Magnesium Direct Bilirubin AST ALT Alkaline Phosphatase Lactate Dehydrogenase Troponin T C-Reactive Protein Total Protein Albumin Prealbumin Triglycerides Cholesterol LDL Cholesterol Direct HDL Cholesterol Urine pH Urine WBC (Auto) Urine Creatinine Urine Total Protein Fluid Total Protein Vancomycin Trough Rheumatoid Factor Complement C4 Miscellaneous Test Crossmatch 10/14/16 10/14/16 10/14/16 05:38 06:35 08:10 WBC 20.7 H RBC 2.81 L Hgb 8.4 L Hct 27.2 L MCV MCH MCHC RDW 19.4 H Plt Count Lymph % (Auto) [place] % (Auto) Lymph # [place] # Baso # Seg Neutrophils % Seg Neuts % (Manual) Lymphocytes % (Manual) Monocytes % (Manual) Eosinophils % (Manual) Basophils % (Manual) Nucleated RBC % Seg Neutrophils # Seg Neutrophils # Man Lymphocytes # (Manual) Monocytes # (Manual) Eosinophils # (Manual) Basophils # (Manual) PT INR Fibrinogen dRVVT Confirm Interp Factor V Activity POC ABG pH POC ABG pCO2 POC ABG pO2 ABG pO2 ABG HCO3 ABG Base Excess ABG Hemoglobin Oxyhemoglobin Sodium Potassium Chloride Carbon Dioxide BUN 58 H Creatinine 1.9 H Glucose 169 H POC Glucose 195 H Lactic Acid Calcium Phosphorus Magnesium Direct Bilirubin AST ALT Alkaline Phosphatase Lactate Dehydrogenase Troponin T C-Reactive Protein Total Protein Albumin Prealbumin Triglycerides Cholesterol LDL Cholesterol Direct HDL Cholesterol Urine pH Urine WBC (Auto) Urine Creatinine Urine Total Protein Fluid Total Protein Vancomycin Trough Rheumatoid Factor Complement C4 Miscellaneous Test Crossmatch 10/14/16 10/14/16 10/14/16 11:44 17:13 23:28 WBC RBC Hgb Hct MCV MCH MCHC RDW Plt Count Lymph % (Auto) [place] % (Auto) Lymph # [place] # Baso # Seg Neutrophils % Seg Neuts % (Manual) Lymphocytes % (Manual) Monocytes % (Manual) Eosinophils % (Manual) Basophils % (Manual) Nucleated RBC % Seg Neutrophils # Seg Neutrophils # Man Lymphocytes # (Manual) Monocytes # (Manual) Eosinophils # (Manual) Basophils # (Manual) PT INR Fibrinogen dRVVT Confirm Interp Factor V Activity POC ABG pH POC ABG pCO2 POC ABG pO2 ABG pO2 ABG HCO3 ABG Base Excess ABG Hemoglobin Oxyhemoglobin Sodium Potassium Chloride Carbon Dioxide BUN Creatinine Glucose POC Glucose 174 H 121 H 151 H Lactic Acid Calcium Phosphorus Magnesium Direct Bilirubin AST ALT Alkaline Phosphatase Lactate Dehydrogenase Troponin T C-Reactive Protein Total Protein Albumin Prealbumin Triglycerides Cholesterol LDL Cholesterol Direct HDL Cholesterol Urine pH Urine WBC (Auto) Urine Creatinine Urine Total Protein Fluid Total Protein Vancomycin Trough Rheumatoid Factor Complement C4 Miscellaneous Test Crossmatch 10/15/16 10/15/16 10/15/16 05:06 12:26 17:48 WBC RBC Hgb Hct MCV MCH MCHC RDW Plt Count Lymph % (Auto) [place] % (Auto) Lymph # [place] # Baso # Seg Neutrophils % Seg Neuts % (Manual) Lymphocytes % (Manual) Monocytes % (Manual) Eosinophils % (Manual) Basophils % (Manual) Nucleated RBC % Seg Neutrophils # Seg Neutrophils # Man Lymphocytes # (Manual) Monocytes # (Manual) Eosinophils # (Manual) Basophils # (Manual) PT INR Fibrinogen dRVVT Confirm Interp Factor V Activity POC ABG pH POC ABG pCO2 POC ABG pO2 ABG pO2 ABG HCO3 ABG Base Excess ABG Hemoglobin Oxyhemoglobin Sodium Potassium Chloride Carbon Dioxide BUN Creatinine Glucose POC Glucose 151 H 149 H 153 H Lactic Acid Calcium Phosphorus Magnesium Direct Bilirubin AST ALT Alkaline Phosphatase Lactate Dehydrogenase Troponin T C-Reactive Protein Total Protein Albumin Prealbumin Triglycerides Cholesterol LDL Cholesterol Direct HDL Cholesterol Urine pH Urine WBC (Auto) Urine Creatinine Urine Total Protein Fluid Total Protein Vancomycin Trough Rheumatoid Factor Complement C4 Miscellaneous Test Crossmatch 10/15/16 10/15/16 10/16/16 Unknown Unknown 00:02 WBC 23.4 H RBC 2.78 L Hgb 8.5 L Hct 25.7 L MCV MCH MCHC RDW 18.7 H Plt Count Lymph % (Auto) [place] % (Auto) Lymph # [place] # Baso # Seg Neutrophils % Seg Neuts % (Manual) Lymphocytes % (Manual) Monocytes % (Manual) Eosinophils % (Manual) Basophils % (Manual) Nucleated RBC % Seg Neutrophils # Seg Neutrophils # Man Lymphocytes # (Manual) Monocytes # (Manual) Eosinophils # (Manual) Basophils # (Manual) PT INR Fibrinogen dRVVT Confirm Interp Factor V Activity POC ABG pH POC ABG pCO2 POC ABG pO2 ABG pO2 ABG HCO3 ABG Base Excess ABG Hemoglobin Oxyhemoglobin Sodium Potassium Chloride Carbon Dioxide BUN 73 H Creatinine 2.3 H Glucose 120 H POC Glucose 137 H Lactic Acid Calcium Phosphorus Magnesium Direct Bilirubin AST ALT Alkaline Phosphatase Lactate Dehydrogenase Troponin T C-Reactive Protein Total Protein Albumin Prealbumin Triglycerides Cholesterol LDL Cholesterol Direct HDL Cholesterol Urine pH Urine WBC (Auto) Urine Creatinine Urine Total Protein Fluid Total Protein Vancomycin Trough Rheumatoid Factor Complement C4 Miscellaneous Test Crossmatch 10/16/16 10/16/16 10/16/16 05:44 06:25 06:25 WBC 22.5 H RBC 2.76 L Hgb 8.3 L Hct 25.2 L MCV MCH MCHC RDW 18.3 H Plt Count Lymph % (Auto) [place] % (Auto) Lymph # [place] # Baso # Seg Neutrophils % Seg Neuts % (Manual) Lymphocytes % (Manual) Monocytes % (Manual) Eosinophils % (Manual) Basophils % (Manual) Nucleated RBC % Seg Neutrophils # Seg Neutrophils # Man Lymphocytes # (Manual) Monocytes # (Manual) Eosinophils # (Manual) Basophils # (Manual) PT INR Fibrinogen dRVVT Confirm Interp Factor V Activity POC ABG pH POC ABG pCO2 POC ABG pO2 ABG pO2 ABG HCO3 ABG Base Excess ABG Hemoglobin Oxyhemoglobin Sodium Potassium Chloride Carbon Dioxide BUN 92 H Creatinine 3.0 H Glucose 138 H POC Glucose 110 H Lactic Acid Calcium Phosphorus Magnesium Direct Bilirubin AST ALT Alkaline Phosphatase Lactate Dehydrogenase Troponin T C-Reactive Protein Total Protein Albumin Prealbumin Triglycerides Cholesterol LDL Cholesterol Direct HDL Cholesterol Urine pH Urine WBC (Auto) Urine Creatinine Urine Total Protein Fluid Total Protein Vancomycin Trough Rheumatoid Factor Complement C4 Miscellaneous Test Crossmatch 10/16/16 10/16/16 10/16/16 11:27 11:48 17:36 WBC RBC Hgb Hct MCV MCH MCHC RDW Plt Count Lymph % (Auto) [place] % (Auto) Lymph # [place] # Baso # Seg Neutrophils % Seg Neuts % (Manual) Lymphocytes % (Manual) Monocytes % (Manual) Eosinophils % (Manual) Basophils % (Manual) Nucleated RBC % Seg Neutrophils # Seg Neutrophils # Man Lymphocytes # (Manual) Monocytes # (Manual) Eosinophils # (Manual) Basophils # (Manual) PT INR Fibrinogen dRVVT Confirm Interp Factor V Activity POC ABG pH 7.582 H POC ABG pCO2 27.4 L POC ABG pO2 110 H ABG pO2 ABG HCO3 ABG Base Excess ABG Hemoglobin Oxyhemoglobin Sodium Potassium Chloride Carbon Dioxide BUN Creatinine Glucose POC Glucose 121 H 133 H Lactic Acid Calcium Phosphorus Magnesium Direct Bilirubin AST ALT Alkaline Phosphatase Lactate Dehydrogenase Troponin T C-Reactive Protein Total Protein Albumin Prealbumin Triglycerides Cholesterol LDL Cholesterol Direct HDL Cholesterol Urine pH Urine WBC (Auto) Urine Creatinine Urine Total Protein Fluid Total Protein Vancomycin Trough Rheumatoid Factor Complement C4 Miscellaneous Test Crossmatch 10/16/16 10/17/16 10/17/16 20:48 04:24 04:24 WBC 21.4 H RBC 2.72 L Hgb 8.0 L Hct 25.2 L MCV MCH MCHC RDW 18.0 H Plt Count Lymph % (Auto) [place] % (Auto) Lymph # [place] # Baso # Seg Neutrophils % Seg Neuts % (Manual) Lymphocytes % (Manual) Monocytes % (Manual) Eosinophils % (Manual) Basophils % (Manual) Nucleated RBC % Seg Neutrophils # Seg Neutrophils # Man Lymphocytes # (Manual) Monocytes # (Manual) Eosinophils # (Manual) Basophils # (Manual) PT INR Fibrinogen dRVVT Confirm Interp Factor V Activity POC ABG pH 7.561 H POC ABG pCO2 24.4 L POC ABG pO2 77 L ABG pO2 ABG HCO3 ABG Base Excess ABG Hemoglobin Oxyhemoglobin Sodium 148 H Potassium Chloride Carbon Dioxide BUN 104 H Creatinine 3.0 H Glucose 149 H POC Glucose Lactic Acid Calcium Phosphorus Magnesium Direct Bilirubin AST ALT Alkaline Phosphatase 138 H Lactate Dehydrogenase Troponin T C-Reactive Protein Total Protein 6.2 L Albumin 1.5 L Prealbumin Triglycerides Cholesterol LDL Cholesterol Direct HDL Cholesterol Urine pH Urine WBC (Auto) Urine Creatinine Urine Total Protein Fluid Total Protein Vancomycin Trough Rheumatoid Factor Complement C4 Miscellaneous Test Crossmatch 10/17/16 10/17/16 10/17/16 06:02 12:17 17:14 WBC RBC Hgb Hct MCV MCH MCHC RDW Plt Count Lymph % (Auto) [place] % (Auto) Lymph # [place] # Baso # Seg Neutrophils % Seg Neuts % (Manual) Lymphocytes % (Manual) Monocytes % (Manual) Eosinophils % (Manual) Basophils % (Manual) Nucleated RBC % Seg Neutrophils # Seg Neutrophils # Man Lymphocytes # (Manual) Monocytes # (Manual) Eosinophils # (Manual) Basophils # (Manual) PT INR Fibrinogen dRVVT Confirm Interp Factor V Activity POC ABG pH POC ABG pCO2 POC ABG pO2 ABG pO2 ABG HCO3 ABG Base Excess ABG Hemoglobin Oxyhemoglobin Sodium Potassium Chloride Carbon Dioxide BUN Creatinine Glucose POC Glucose 170 H 167 H 126 H Lactic Acid Calcium Phosphorus Magnesium Direct Bilirubin AST ALT Alkaline Phosphatase Lactate Dehydrogenase Troponin T C-Reactive Protein Total Protein Albumin Prealbumin Triglycerides Cholesterol LDL Cholesterol Direct HDL Cholesterol Urine pH Urine WBC (Auto) Urine Creatinine Urine Total Protein Fluid Total Protein Vancomycin Trough Rheumatoid Factor Complement C4 Miscellaneous Test Crossmatch 10/17/16 10/18/16 10/18/16 23:17 04:00 04:00 WBC 20.7 H RBC 2.47 L Hgb 7.4 L Hct 22.9 L MCV MCH MCHC RDW 17.5 H Plt Count Lymph % (Auto) [place] % (Auto) Lymph # [place] # Baso # Seg Neutrophils % Seg Neuts % (Manual) Lymphocytes % (Manual) Monocytes % (Manual) Eosinophils % (Manual) Basophils % (Manual) Nucleated RBC % Seg Neutrophils # Seg Neutrophils # Man Lymphocytes # (Manual) Monocytes # (Manual) Eosinophils # (Manual) Basophils # (Manual) PT INR Fibrinogen dRVVT Confirm Interp Factor V Activity POC ABG pH POC ABG pCO2 POC ABG pO2 ABG pO2 ABG HCO3 ABG Base Excess ABG Hemoglobin Oxyhemoglobin Sodium 149 H Potassium Chloride 107.9 H Carbon Dioxide 20 L BUN 117 H Creatinine 3.2 H Glucose 119 H POC Glucose 121 H Lactic Acid Calcium Phosphorus Magnesium Direct Bilirubin AST ALT Alkaline Phosphatase Lactate Dehydrogenase Troponin T C-Reactive Protein Total Protein Albumin Prealbumin Triglycerides Cholesterol LDL Cholesterol Direct HDL Cholesterol Urine pH Urine WBC (Auto) Urine Creatinine Urine Total Protein Fluid Total Protein Vancomycin Trough Rheumatoid Factor Complement C4 Miscellaneous Test Crossmatch 10/18/16 10/18/16 10/18/16 05:23 10:46 17:30 WBC RBC Hgb Hct MCV MCH MCHC RDW Plt Count Lymph % (Auto) [place] % (Auto) Lymph # [place] # Baso # Seg Neutrophils % Seg Neuts % (Manual) Lymphocytes % (Manual) Monocytes % (Manual) Eosinophils % (Manual) Basophils % (Manual) Nucleated RBC % Seg Neutrophils # Seg Neutrophils # Man Lymphocytes # (Manual) Monocytes # (Manual) Eosinophils # (Manual) Basophils # (Manual) PT INR Fibrinogen dRVVT Confirm Interp Factor V Activity POC ABG pH POC ABG pCO2 POC ABG pO2 ABG pO2 ABG HCO3 ABG Base Excess ABG Hemoglobin Oxyhemoglobin Sodium Potassium Chloride Carbon Dioxide BUN Creatinine Glucose POC Glucose 119 H 155 H 124 H Lactic Acid Calcium Phosphorus Magnesium Direct Bilirubin AST ALT Alkaline Phosphatase Lactate Dehydrogenase Troponin T C-Reactive Protein Total Protein Albumin Prealbumin Triglycerides Cholesterol LDL Cholesterol Direct HDL Cholesterol Urine pH Urine WBC (Auto) Urine Creatinine Urine Total Protein Fluid Total Protein Vancomycin Trough Rheumatoid Factor Complement C4 Miscellaneous Test Crossmatch 10/19/16 10/19/16 10/19/16 04:00 04:00 05:25 WBC 17.4 H RBC 2.54 L Hgb 7.7 L Hct 23.6 L MCV MCH MCHC RDW 17.3 H Plt Count Lymph % (Auto) [place] % (Auto) Lymph # [place] # Baso # Seg Neutrophils % Seg Neuts % (Manual) Lymphocytes % (Manual) Monocytes % (Manual) Eosinophils % (Manual) Basophils % (Manual) Nucleated RBC % Seg Neutrophils # Seg Neutrophils # Man Lymphocytes # (Manual) Monocytes # (Manual) Eosinophils # (Manual) Basophils # (Manual) PT INR Fibrinogen dRVVT Confirm Interp Factor V Activity POC ABG pH POC ABG pCO2 POC ABG pO2 ABG pO2 ABG HCO3 ABG Base Excess ABG Hemoglobin Oxyhemoglobin Sodium Potassium Chloride Carbon Dioxide BUN 72 H Creatinine 2.1 H Glucose 116 H POC Glucose 119 H Lactic Acid Calcium Phosphorus Magnesium Direct Bilirubin AST ALT Alkaline Phosphatase Lactate Dehydrogenase Troponin T C-Reactive Protein Total Protein Albumin Prealbumin Triglycerides Cholesterol LDL Cholesterol Direct HDL Cholesterol Urine pH Urine WBC (Auto) Urine Creatinine Urine Total Protein Fluid Total Protein Vancomycin Trough Rheumatoid Factor Complement C4 Miscellaneous Test Crossmatch 10/19/16 10/19/16 10/20/16 11:46 23:59 06:00 WBC RBC Hgb Hct MCV MCH MCHC RDW Plt Count Lymph % (Auto) [place] % (Auto) Lymph # [place] # Baso # Seg Neutrophils % Seg Neuts % (Manual) Lymphocytes % (Manual) Monocytes % (Manual) Eosinophils % (Manual) Basophils % (Manual) Nucleated RBC % Seg Neutrophils # Seg Neutrophils # Man Lymphocytes # (Manual) Monocytes # (Manual) Eosinophils # (Manual) Basophils # (Manual) PT INR Fibrinogen dRVVT Confirm Interp Factor V Activity POC ABG pH POC ABG pCO2 POC ABG pO2 ABG pO2 ABG HCO3 ABG Base Excess ABG Hemoglobin Oxyhemoglobin Sodium Potassium Chloride Carbon Dioxide 17 L BUN 94 H Creatinine 2.7 H Glucose POC Glucose 116 H 117 H Lactic Acid Calcium Phosphorus Magnesium Direct Bilirubin AST ALT Alkaline Phosphatase Lactate Dehydrogenase Troponin T C-Reactive Protein Total Protein Albumin Prealbumin Triglycerides Cholesterol LDL Cholesterol Direct HDL Cholesterol Urine pH Urine WBC (Auto) Urine Creatinine Urine Total Protein Fluid Total Protein Vancomycin Trough Rheumatoid Factor Complement C4 Miscellaneous Test Crossmatch 10/20/16 10/20/16 10/20/16 06:00 11:49 16:00 WBC 19.7 H RBC 2.51 L Hgb 7.7 L Hct 23.5 L MCV MCH MCHC RDW 17.5 H Plt Count Lymph % (Auto) [place] % (Auto) Lymph # [place] # Baso # Seg Neutrophils % Seg Neuts % (Manual) Lymphocytes % (Manual) Monocytes % (Manual) Eosinophils % (Manual) Basophils % (Manual) Nucleated RBC % Seg Neutrophils # Seg Neutrophils # Man Lymphocytes # (Manual) Monocytes # (Manual) Eosinophils # (Manual) Basophils # (Manual) PT INR Fibrinogen dRVVT Confirm Interp Factor V Activity POC ABG pH POC ABG pCO2 POC ABG pO2 ABG pO2 ABG HCO3 ABG Base Excess ABG Hemoglobin Oxyhemoglobin Sodium Potassium Chloride Carbon Dioxide BUN Creatinine Glucose POC Glucose 117 H Lactic Acid Calcium Phosphorus Magnesium Direct Bilirubin AST ALT Alkaline Phosphatase Lactate Dehydrogenase Troponin T C-Reactive Protein Total Protein Albumin Prealbumin Triglycerides Cholesterol LDL Cholesterol Direct HDL Cholesterol Urine pH Urine WBC (Auto) Urine Creatinine Urine Total Protein Fluid Total Protein Vancomycin Trough Rheumatoid Factor Complement C4 Miscellaneous Test Flexitest 1 H Crossmatch 10/20/16 10/20/16 10/21/16 18:36 23:39 04:00 WBC RBC Hgb Hct MCV MCH MCHC RDW Plt Count Lymph % (Auto) [place] % (Auto) Lymph # [place] # Baso # Seg Neutrophils % Seg Neuts % (Manual) Lymphocytes % (Manual) Monocytes % (Manual) Eosinophils % (Manual) Basophils % (Manual) Nucleated RBC % Seg Neutrophils # Seg Neutrophils # Man Lymphocytes # (Manual) Monocytes # (Manual) Eosinophils # (Manual) Basophils # (Manual) PT INR Fibrinogen dRVVT Confirm Interp Factor V Activity POC ABG pH POC ABG pCO2 POC ABG pO2 ABG pO2 ABG HCO3 ABG Base Excess ABG Hemoglobin Oxyhemoglobin Sodium Potassium 5.4 H D Chloride Carbon Dioxide 15 L BUN 110 H Creatinine 3.0 H Glucose POC Glucose 127 H 114 H Lactic Acid Calcium Phosphorus Magnesium Direct Bilirubin AST ALT Alkaline Phosphatase Lactate Dehydrogenase Troponin T C-Reactive Protein Total Protein Albumin Prealbumin Triglycerides Cholesterol LDL Cholesterol Direct HDL Cholesterol Urine pH Urine WBC (Auto) Urine Creatinine Urine Total Protein Fluid Total Protein Vancomycin Trough Rheumatoid Factor Complement C4 Miscellaneous Test Crossmatch 10/21/16 10/21/16 10/22/16 05:54 23:46 05:18 WBC RBC Hgb Hct MCV MCH MCHC RDW Plt Count Lymph % (Auto) [place] % (Auto) Lymph # [place] # Baso # Seg Neutrophils % Seg Neuts % (Manual) Lymphocytes % (Manual) Monocytes % (Manual) Eosinophils % (Manual) Basophils % (Manual) Nucleated RBC % Seg Neutrophils # Seg Neutrophils # Man Lymphocytes # (Manual) Monocytes # (Manual) Eosinophils # (Manual) Basophils # (Manual) PT INR Fibrinogen dRVVT Confirm Interp Factor V Activity POC ABG pH POC ABG pCO2 POC ABG pO2 ABG pO2 ABG HCO3 ABG Base Excess ABG Hemoglobin Oxyhemoglobin Sodium Potassium Chloride Carbon Dioxide BUN Creatinine Glucose POC Glucose 119 H 108 H 109 H Lactic Acid Calcium Phosphorus Magnesium Direct Bilirubin AST ALT Alkaline Phosphatase Lactate Dehydrogenase Troponin T C-Reactive Protein Total Protein Albumin Prealbumin Triglycerides Cholesterol LDL Cholesterol Direct HDL Cholesterol Urine pH Urine WBC (Auto) Urine Creatinine Urine Total Protein Fluid Total Protein Vancomycin Trough Rheumatoid Factor Complement C4 Miscellaneous Test Crossmatch 10/22/16 10/22/16 10/22/16 06:40 06:40 06:40 WBC 14.0 H RBC 2.03 L Hgb 7.0 L Hct 20.5 L MCV 98 H MCH 34 H MCHC 35 H RDW 17.8 H Plt Count Lymph % (Auto) [place] % (Auto) 9.9 H Lymph # [place] # 1.4 H Baso # 0.2 H Seg Neutrophils % 72.0 H Seg Neuts % (Manual) Lymphocytes % (Manual) Monocytes % (Manual) Eosinophils % (Manual) Basophils % (Manual) Nucleated RBC % Seg Neutrophils # 10.0 H Seg Neutrophils # Man Lymphocytes # (Manual) Monocytes # (Manual) Eosinophils # (Manual) Basophils # (Manual) PT INR Fibrinogen dRVVT Confirm Interp Factor V Activity POC ABG pH POC ABG pCO2 POC ABG pO2 ABG pO2 ABG HCO3 ABG Base Excess ABG Hemoglobin Oxyhemoglobin Sodium 130 L D Potassium Chloride 92.4 L Carbon Dioxide 20 L BUN 50 H Creatinine 1.6 H Glucose 589 H* POC Glucose Lactic Acid Calcium 7.8 L D Phosphorus Magnesium 1.60 L Direct Bilirubin AST ALT Alkaline Phosphatase Lactate Dehydrogenase Troponin T C-Reactive Protein Total Protein Albumin Prealbumin Triglycerides Cholesterol LDL Cholesterol Direct HDL Cholesterol Urine pH Urine WBC (Auto) Urine Creatinine Urine Total Protein Fluid Total Protein Vancomycin Trough Rheumatoid Factor Complement C4 Miscellaneous Test Crossmatch 10/22/16 10/22/16 10/22/16 11:39 16:44 23:36 WBC RBC Hgb Hct MCV MCH MCHC RDW Plt Count Lymph % (Auto) [place] % (Auto) Lymph # [place] # Baso # Seg Neutrophils % Seg Neuts % (Manual) Lymphocytes % (Manual) Monocytes % (Manual) Eosinophils % (Manual) Basophils % (Manual) Nucleated RBC % Seg Neutrophils # Seg Neutrophils # Man Lymphocytes # (Manual) Monocytes # (Manual) Eosinophils # (Manual) Basophils # (Manual) PT INR Fibrinogen dRVVT Confirm Interp Factor V Activity POC ABG pH POC ABG pCO2 POC ABG pO2 ABG pO2 ABG HCO3 ABG Base Excess ABG Hemoglobin Oxyhemoglobin Sodium Potassium Chloride Carbon Dioxide BUN Creatinine Glucose POC Glucose 142 H 163 H 123 H Lactic Acid Calcium Phosphorus Magnesium Direct Bilirubin AST ALT Alkaline Phosphatase Lactate Dehydrogenase Troponin T C-Reactive Protein Total Protein Albumin Prealbumin Triglycerides Cholesterol LDL Cholesterol Direct HDL Cholesterol Urine pH Urine WBC (Auto) Urine Creatinine Urine Total Protein Fluid Total Protein Vancomycin Trough Rheumatoid Factor Complement C4 Miscellaneous Test Crossmatch 10/23/16 10/23/16 10/23/16 04:58 06:00 12:12 WBC RBC Hgb Hct MCV MCH MCHC RDW Plt Count Lymph % (Auto) [place] % (Auto) Lymph # [place] # Baso # Seg Neutrophils % Seg Neuts % (Manual) Lymphocytes % (Manual) Monocytes % (Manual) Eosinophils % (Manual) Basophils % (Manual) Nucleated RBC % Seg Neutrophils # Seg Neutrophils # Man Lymphocytes # (Manual) Monocytes # (Manual) Eosinophils # (Manual) Basophils # (Manual) PT INR Fibrinogen dRVVT Confirm Interp Factor V Activity POC ABG pH POC ABG pCO2 POC ABG pO2 ABG pO2 ABG HCO3 ABG Base Excess ABG Hemoglobin Oxyhemoglobin Sodium 133 L Potassium 3.5 L Chloride 96.1 L Carbon Dioxide 18 L BUN 76 H Creatinine 2.1 H Glucose POC Glucose 133 H 138 H Lactic Acid Calcium 8.3 L Phosphorus Magnesium Direct Bilirubin AST ALT Alkaline Phosphatase Lactate Dehydrogenase Troponin T C-Reactive Protein Total Protein Albumin Prealbumin Triglycerides Cholesterol LDL Cholesterol Direct HDL Cholesterol Urine pH Urine WBC (Auto) Urine Creatinine Urine Total Protein Fluid Total Protein Vancomycin Trough Rheumatoid Factor Complement C4 Miscellaneous Test Crossmatch 10/23/16 10/23/16 10/24/16 16:53 23:37 04:00 WBC RBC Hgb Hct MCV MCH MCHC RDW Plt Count Lymph % (Auto) [place] % (Auto) Lymph # [place] # Baso # Seg Neutrophils % Seg Neuts % (Manual) Lymphocytes % (Manual) Monocytes % (Manual) Eosinophils % (Manual) Basophils % (Manual) Nucleated RBC % Seg Neutrophils # Seg Neutrophils # Man Lymphocytes # (Manual) Monocytes # (Manual) Eosinophils # (Manual) Basophils # (Manual) PT INR Fibrinogen dRVVT Confirm Interp Factor V Activity POC ABG pH POC ABG pCO2 POC ABG pO2 ABG pO2 ABG HCO3 ABG Base Excess ABG Hemoglobin Oxyhemoglobin Sodium 131 L Potassium Chloride 94.5 L Carbon Dioxide 19 L BUN 97 H Creatinine 2.6 H Glucose 110 H POC Glucose 125 H 123 H Lactic Acid Calcium 8.3 L Phosphorus Magnesium Direct Bilirubin AST ALT Alkaline Phosphatase Lactate Dehydrogenase Troponin T C-Reactive Protein Total Protein Albumin Prealbumin Triglycerides Cholesterol LDL Cholesterol Direct HDL Cholesterol Urine pH Urine WBC (Auto) Urine Creatinine Urine Total Protein Fluid Total Protein Vancomycin Trough Rheumatoid Factor Complement C4 Miscellaneous Test Crossmatch 10/24/16 10/24/16 10/24/16 07:49 11:39 17:52 WBC RBC Hgb 6.0 L Hct 19.7 L* MCV MCH MCHC RDW Plt Count Lymph % (Auto) [place] % (Auto) Lymph # [place] # Baso # Seg Neutrophils % Seg Neuts % (Manual) Lymphocytes % (Manual) Monocytes % (Manual) Eosinophils % (Manual) Basophils % (Manual) Nucleated RBC % Seg Neutrophils # Seg Neutrophils # Man Lymphocytes # (Manual) Monocytes # (Manual) Eosinophils # (Manual) Basophils # (Manual) PT INR Fibrinogen dRVVT Confirm Interp Factor V Activity POC ABG pH POC ABG pCO2 POC ABG pO2 ABG pO2 ABG HCO3 ABG Base Excess ABG Hemoglobin Oxyhemoglobin Sodium Potassium Chloride Carbon Dioxide BUN Creatinine Glucose POC Glucose 106 H 158 H Lactic Acid Calcium Phosphorus Magnesium Direct Bilirubin AST ALT Alkaline Phosphatase Lactate Dehydrogenase Troponin T C-Reactive Protein Total Protein Albumin Prealbumin Triglycerides Cholesterol LDL Cholesterol Direct HDL Cholesterol Urine pH Urine WBC (Auto) Urine Creatinine Urine Total Protein Fluid Total Protein Vancomycin Trough Rheumatoid Factor Complement C4 Miscellaneous Test Crossmatch 10/24/16 10/24/16 10/24/16 20:00 22:27 Unknown WBC RBC Hgb 9.4 L D Hct 27.5 L D MCV MCH MCHC RDW Plt Count Lymph % (Auto) [place] % (Auto) Lymph # [place] # Baso # Seg Neutrophils % Seg Neuts % (Manual) Lymphocytes % (Manual) Monocytes % (Manual) Eosinophils % (Manual) Basophils % (Manual) Nucleated RBC % Seg Neutrophils # Seg Neutrophils # Man Lymphocytes # (Manual) Monocytes # (Manual) Eosinophils # (Manual) Basophils # (Manual) PT INR Fibrinogen dRVVT Confirm Interp Factor V Activity POC ABG pH POC ABG pCO2 POC ABG pO2 ABG pO2 ABG HCO3 ABG Base Excess ABG Hemoglobin Oxyhemoglobin Sodium Potassium Chloride Carbon Dioxide BUN Creatinine Glucose POC Glucose 125 H Lactic Acid Calcium Phosphorus Magnesium Direct Bilirubin AST ALT Alkaline Phosphatase Lactate Dehydrogenase Troponin T C-Reactive Protein Total Protein Albumin Prealbumin Triglycerides Cholesterol LDL Cholesterol Direct HDL Cholesterol Urine pH Urine WBC (Auto) Urine Creatinine Urine Total Protein Fluid Total Protein Vancomycin Trough Rheumatoid Factor Complement C4 Miscellaneous Test Crossmatch See Detail 10/25/16 10/25/16 10/25/16 04:00 04:00 04:00 WBC 14.2 H RBC 2.98 L Hgb 9.0 L Hct 26.2 L MCV MCH MCHC RDW 16.6 H Plt Count Lymph % (Auto) [place] % (Auto) 10.7 H Lymph # [place] # 1.5 H Baso # Seg Neutrophils % 73.6 H Seg Neuts % (Manual) Lymphocytes % (Manual) Monocytes % (Manual) Eosinophils % (Manual) Basophils % (Manual) Nucleated RBC % Seg Neutrophils # 10.5 H Seg Neutrophils # Man Lymphocytes # (Manual) Monocytes # (Manual) Eosinophils # (Manual) Basophils # (Manual) PT INR Fibrinogen dRVVT Confirm Interp Factor V Activity POC ABG pH POC ABG pCO2 POC ABG pO2 ABG pO2 ABG HCO3 ABG Base Excess ABG Hemoglobin Oxyhemoglobin Sodium 132 L Potassium Chloride 94.7 L Carbon Dioxide BUN 51 H Creatinine 1.6 H Glucose 130 H POC Glucose Lactic Acid Calcium 8.3 L Phosphorus 1.60 L D Magnesium Direct Bilirubin AST ALT Alkaline Phosphatase Lactate Dehydrogenase Troponin T C-Reactive Protein Total Protein Albumin Prealbumin Triglycerides Cholesterol LDL Cholesterol Direct HDL Cholesterol Urine pH Urine WBC (Auto) Urine Creatinine Urine Total Protein Fluid Total Protein Vancomycin Trough Rheumatoid Factor Complement C4 Miscellaneous Test Crossmatch 10/25/16 10/25/16 10/25/16 04:32 11:48 17:22 WBC RBC Hgb Hct MCV MCH MCHC RDW Plt Count Lymph % (Auto) [place] % (Auto) Lymph # [place] # Baso # Seg Neutrophils % Seg Neuts % (Manual) Lymphocytes % (Manual) Monocytes % (Manual) Eosinophils % (Manual) Basophils % (Manual) Nucleated RBC % Seg Neutrophils # Seg Neutrophils # Man Lymphocytes # (Manual) Monocytes # (Manual) Eosinophils # (Manual) Basophils # (Manual) PT INR Fibrinogen dRVVT Confirm Interp Factor V Activity POC ABG pH POC ABG pCO2 POC ABG pO2 ABG pO2 ABG HCO3 ABG Base Excess ABG Hemoglobin Oxyhemoglobin Sodium Potassium Chloride Carbon Dioxide BUN Creatinine Glucose POC Glucose 124 H 171 H 120 H Lactic Acid Calcium Phosphorus Magnesium Direct Bilirubin AST ALT Alkaline Phosphatase Lactate Dehydrogenase Troponin T C-Reactive Protein Total Protein Albumin Prealbumin Triglycerides Cholesterol LDL Cholesterol Direct HDL Cholesterol Urine pH Urine WBC (Auto) Urine Creatinine Urine Total Protein Fluid Total Protein Vancomycin Trough Rheumatoid Factor Complement C4 Miscellaneous Test Crossmatch 10/26/16 10/26/16 10/26/16 04:54 07:06 07:06 WBC 16.9 H RBC 3.06 L Hgb 9.1 L Hct 26.9 L MCV MCH MCHC RDW 16.9 H Plt Count Lymph % (Auto) [place] % (Auto) Lymph # [place] # Baso # Seg Neutrophils % Seg Neuts % (Manual) 71.0 H Lymphocytes % (Manual) 5.0 L Monocytes % (Manual) 12.0 H Eosinophils % (Manual) Basophils % (Manual) Nucleated RBC % Seg Neutrophils # Seg Neutrophils # Man 12.0 H Lymphocytes # (Manual) 0.8 L Monocytes # (Manual) 2.0 H Eosinophils # (Manual) Basophils # (Manual) PT INR Fibrinogen dRVVT Confirm Interp Factor V Activity POC ABG pH POC ABG pCO2 POC ABG pO2 ABG pO2 ABG HCO3 ABG Base Excess ABG Hemoglobin Oxyhemoglobin Sodium 135 L Potassium Chloride 97.1 L Carbon Dioxide BUN 73 H Creatinine 2.2 H Glucose 117 H POC Glucose 123 H Lactic Acid Calcium Phosphorus 1.70 L Magnesium Direct Bilirubin AST ALT Alkaline Phosphatase Lactate Dehydrogenase Troponin T C-Reactive Protein Total Protein Albumin Prealbumin Triglycerides Cholesterol LDL Cholesterol Direct HDL Cholesterol Urine pH Urine WBC (Auto) Urine Creatinine Urine Total Protein Fluid Total Protein Vancomycin Trough Rheumatoid Factor Complement C4 Miscellaneous Test Crossmatch 10/26/16 10/26/16 10/26/16 12:12 17:29 23:42 WBC RBC Hgb Hct MCV MCH MCHC RDW Plt Count Lymph % (Auto) [place] % (Auto) Lymph # [place] # Baso # Seg Neutrophils % Seg Neuts % (Manual) Lymphocytes % (Manual) Monocytes % (Manual) Eosinophils % (Manual) Basophils % (Manual) Nucleated RBC % Seg Neutrophils # Seg Neutrophils # Man Lymphocytes # (Manual) Monocytes # (Manual) Eosinophils # (Manual) Basophils # (Manual) PT INR Fibrinogen dRVVT Confirm Interp Factor V Activity POC ABG pH POC ABG pCO2 POC ABG pO2 ABG pO2 ABG HCO3 ABG Base Excess ABG Hemoglobin Oxyhemoglobin Sodium Potassium Chloride Carbon Dioxide BUN Creatinine Glucose POC Glucose 126 H 161 H 118 H Lactic Acid Calcium Phosphorus Magnesium Direct Bilirubin AST ALT Alkaline Phosphatase Lactate Dehydrogenase Troponin T C-Reactive Protein Total Protein Albumin Prealbumin Triglycerides Cholesterol LDL Cholesterol Direct HDL Cholesterol Urine pH Urine WBC (Auto) Urine Creatinine Urine Total Protein Fluid Total Protein Vancomycin Trough Rheumatoid Factor Complement C4 Miscellaneous Test Crossmatch 10/27/16 10/27/16 10/27/16 05:03 06:30 06:30 WBC 13.9 H RBC 3.09 L Hgb 9.2 L Hct 27.5 L MCV MCH MCHC RDW 17.0 H Plt Count Lymph % (Auto) [place] % (Auto) Lymph # [place] # Baso # Seg Neutrophils % Seg Neuts % (Manual) 78.0 H Lymphocytes % (Manual) Monocytes % (Manual) Eosinophils % (Manual) Basophils % (Manual) Nucleated RBC % 2.0 H Seg Neutrophils # Seg Neutrophils # Man 10.8 H Lymphocytes # (Manual) Monocytes # (Manual) 1.0 H Eosinophils # (Manual) Basophils # (Manual) PT INR Fibrinogen dRVVT Confirm Interp Factor V Activity POC ABG pH POC ABG pCO2 POC ABG pO2 ABG pO2 ABG HCO3 ABG Base Excess ABG Hemoglobin Oxyhemoglobin Sodium Potassium Chloride Carbon Dioxide BUN 40 H Creatinine 1.5 H Glucose 135 H POC Glucose 107 H Lactic Acid Calcium 8.3 L Phosphorus 1.30 L D Magnesium Direct Bilirubin AST ALT Alkaline Phosphatase Lactate Dehydrogenase Troponin T C-Reactive Protein Total Protein Albumin Prealbumin Triglycerides Cholesterol LDL Cholesterol Direct HDL Cholesterol Urine pH Urine WBC (Auto) Urine Creatinine Urine Total Protein Fluid Total Protein Vancomycin Trough Rheumatoid Factor Complement C4 Miscellaneous Test Crossmatch 10/27/16 10/27/16 10/27/16 13:27 18:07 23:40 WBC RBC Hgb Hct MCV MCH MCHC RDW Plt Count Lymph % (Auto) [place] % (Auto) Lymph # [place] # Baso # Seg Neutrophils % Seg Neuts % (Manual) Lymphocytes % (Manual) Monocytes % (Manual) Eosinophils % (Manual) Basophils % (Manual) Nucleated RBC % Seg Neutrophils # Seg Neutrophils # Man Lymphocytes # (Manual) Monocytes # (Manual) Eosinophils # (Manual) Basophils # (Manual) PT INR Fibrinogen dRVVT Confirm Interp Factor V Activity POC ABG pH POC ABG pCO2 POC ABG pO2 ABG pO2 ABG HCO3 ABG Base Excess ABG Hemoglobin Oxyhemoglobin Sodium Potassium Chloride Carbon Dioxide BUN Creatinine Glucose POC Glucose 117 H 121 H 118 H Lactic Acid Calcium Phosphorus Magnesium Direct Bilirubin AST ALT Alkaline Phosphatase Lactate Dehydrogenase Troponin T C-Reactive Protein Total Protein Albumin Prealbumin Triglycerides Cholesterol LDL Cholesterol Direct HDL Cholesterol Urine pH Urine WBC (Auto) Urine Creatinine Urine Total Protein Fluid Total Protein Vancomycin Trough Rheumatoid Factor Complement C4 Miscellaneous Test Crossmatch 10/28/16 10/28/16 10/28/16 05:48 06:45 06:45 WBC 14.7 H RBC 3.05 L Hgb 9.0 L Hct 26.9 L MCV MCH MCHC RDW 16.8 H Plt Count Lymph % (Auto) 8.2 L [place] % (Auto) 8.4 H Lymph # [place] # 1.2 H Baso # Seg Neutrophils % 81.9 H Seg Neuts % (Manual) Lymphocytes % (Manual) Monocytes % (Manual) Eosinophils % (Manual) Basophils % (Manual) Nucleated RBC % Seg Neutrophils # 12.1 H Seg Neutrophils # Man Lymphocytes # (Manual) Monocytes # (Manual) Eosinophils # (Manual) Basophils # (Manual) PT INR Fibrinogen dRVVT Confirm Interp Factor V Activity POC ABG pH POC ABG pCO2 POC ABG pO2 ABG pO2 ABG HCO3 ABG Base Excess ABG Hemoglobin Oxyhemoglobin Sodium Potassium Chloride Carbon Dioxide BUN 60 H Creatinine 1.9 H Glucose 120 H POC Glucose 114 H Lactic Acid Calcium Phosphorus Magnesium Direct Bilirubin AST ALT Alkaline Phosphatase Lactate Dehydrogenase Troponin T C-Reactive Protein Total Protein Albumin Prealbumin Triglycerides Cholesterol LDL Cholesterol Direct HDL Cholesterol Urine pH Urine WBC (Auto) Urine Creatinine Urine Total Protein Fluid Total Protein Vancomycin Trough Rheumatoid Factor Complement C4 Miscellaneous Test Crossmatch 10/28/16 10/28/16 10/29/16 17:08 23:50 05:10 WBC RBC Hgb Hct MCV MCH MCHC RDW Plt Count Lymph % (Auto) [place] % (Auto) Lymph # [place] # Baso # Seg Neutrophils % Seg Neuts % (Manual) Lymphocytes % (Manual) Monocytes % (Manual) Eosinophils % (Manual) Basophils % (Manual) Nucleated RBC % Seg Neutrophils # Seg Neutrophils # Man Lymphocytes # (Manual) Monocytes # (Manual) Eosinophils # (Manual) Basophils # (Manual) PT INR Fibrinogen dRVVT Confirm Interp Factor V Activity POC ABG pH POC ABG pCO2 POC ABG pO2 ABG pO2 ABG HCO3 ABG Base Excess ABG Hemoglobin Oxyhemoglobin Sodium Potassium Chloride Carbon Dioxide BUN Creatinine Glucose POC Glucose 109 H 110 H 124 H Lactic Acid Calcium Phosphorus Magnesium Direct Bilirubin AST ALT Alkaline Phosphatase Lactate Dehydrogenase Troponin T C-Reactive Protein Total Protein Albumin Prealbumin Triglycerides Cholesterol LDL Cholesterol Direct HDL Cholesterol Urine pH Urine WBC (Auto) Urine Creatinine Urine Total Protein Fluid Total Protein Vancomycin Trough Rheumatoid Factor Complement C4 Miscellaneous Test Crossmatch 10/29/16 10/29/16 10/29/16 07:45 07:45 12:19 WBC 14.7 H RBC 3.15 L Hgb 9.3 L Hct 28.9 L MCV MCH MCHC RDW 17.0 H Plt Count Lymph % (Auto) 11.9 L [place] % (Auto) 8.6 H Lymph # [place] # 1.3 H Baso # Seg Neutrophils % 78.1 H Seg Neuts % (Manual) Lymphocytes % (Manual) Monocytes % (Manual) Eosinophils % (Manual) Basophils % (Manual) Nucleated RBC % Seg Neutrophils # 11.4 H Seg Neutrophils # Man Lymphocytes # (Manual) Monocytes # (Manual) Eosinophils # (Manual) Basophils # (Manual) PT INR Fibrinogen dRVVT Confirm Interp Factor V Activity POC ABG pH POC ABG pCO2 POC ABG pO2 ABG pO2 ABG HCO3 ABG Base Excess ABG Hemoglobin Oxyhemoglobin Sodium Potassium 5.1 H Chloride Carbon Dioxide 19 L BUN 78 H Creatinine 2.2 H Glucose 116 H POC Glucose 118 H Lactic Acid Calcium Phosphorus Magnesium Direct Bilirubin AST ALT Alkaline Phosphatase Lactate Dehydrogenase Troponin T C-Reactive Protein Total Protein Albumin Prealbumin Triglycerides Cholesterol LDL Cholesterol Direct HDL Cholesterol Urine pH Urine WBC (Auto) Urine Creatinine Urine Total Protein Fluid Total Protein Vancomycin Trough Rheumatoid Factor Complement C4 Miscellaneous Test Crossmatch 10/29/16 10/30/16 10/30/16 17:49 01:52 03:28 WBC RBC Hgb Hct MCV MCH MCHC RDW Plt Count Lymph % (Auto) [place] % (Auto) Lymph # [place] # Baso # Seg Neutrophils % Seg Neuts % (Manual) Lymphocytes % (Manual) Monocytes % (Manual) Eosinophils % (Manual) Basophils % (Manual) Nucleated RBC % Seg Neutrophils # Seg Neutrophils # Man Lymphocytes # (Manual) Monocytes # (Manual) Eosinophils # (Manual) Basophils # (Manual) PT INR Fibrinogen dRVVT Confirm Interp Factor V Activity POC ABG pH POC ABG pCO2 POC ABG pO2 ABG pO2 ABG HCO3 ABG Base Excess ABG Hemoglobin Oxyhemoglobin Sodium Potassium 5.4 H Chloride 97.5 L Carbon Dioxide 19 L BUN 90 H Creatinine 2.5 H Glucose POC Glucose 120 H 129 H Lactic Acid Calcium Phosphorus 5.20 H Magnesium Direct Bilirubin AST ALT Alkaline Phosphatase Lactate Dehydrogenase Troponin T C-Reactive Protein Total Protein Albumin Prealbumin Triglycerides Cholesterol LDL Cholesterol Direct HDL Cholesterol Urine pH Urine WBC (Auto) Urine Creatinine Urine Total Protein Fluid Total Protein Vancomycin Trough Rheumatoid Factor Complement C4 Miscellaneous Test Crossmatch 10/30/16 10/30/16 10/30/16 03:28 08:19 08:19 WBC 11.6 H 15.9 H RBC 2.75 L 2.82 L Hgb 7.9 L 8.3 L Hct 24.2 L 25.2 L MCV MCH MCHC RDW 16.7 H 17.2 H Plt Count Lymph % (Auto) [place] % (Auto) 9.8 H Lymph # [place] # 1.1 H Baso # Seg Neutrophils % 74.2 H Seg Neuts % (Manual) Lymphocytes % (Manual) Monocytes % (Manual) Eosinophils % (Manual) Basophils % (Manual) Nucleated RBC % Seg Neutrophils # 8.6 H Seg Neutrophils # Man Lymphocytes # (Manual) Monocytes # (Manual) Eosinophils # (Manual) Basophils # (Manual) PT INR Fibrinogen dRVVT Confirm Interp Factor V Activity POC ABG pH POC ABG pCO2 POC ABG pO2 ABG pO2 ABG HCO3 ABG Base Excess ABG Hemoglobin Oxyhemoglobin Sodium Potassium 5.3 H Chloride 97.4 L Carbon Dioxide 19 L BUN 93 H Creatinine 2.6 H Glucose POC Glucose Lactic Acid Calcium Phosphorus Magnesium Direct Bilirubin AST ALT Alkaline Phosphatase Lactate Dehydrogenase Troponin T C-Reactive Protein Total Protein Albumin Prealbumin Triglycerides Cholesterol LDL Cholesterol Direct HDL Cholesterol Urine pH Urine WBC (Auto) Urine Creatinine Urine Total Protein Fluid Total Protein Vancomycin Trough Rheumatoid Factor Complement C4 Miscellaneous Test Crossmatch 10/30/16 10/30/16 10/31/16 17:11 23:56 00:40 WBC RBC Hgb Hct MCV MCH MCHC RDW Plt Count Lymph % (Auto) [place] % (Auto) Lymph # [place] # Baso # Seg Neutrophils % Seg Neuts % (Manual) Lymphocytes % (Manual) Monocytes % (Manual) Eosinophils % (Manual) Basophils % (Manual) Nucleated RBC % Seg Neutrophils # Seg Neutrophils # Man Lymphocytes # (Manual) Monocytes # (Manual) Eosinophils # (Manual) Basophils # (Manual) PT INR Fibrinogen dRVVT Confirm Interp Factor V Activity POC ABG pH POC ABG pCO2 POC ABG pO2 ABG pO2 ABG HCO3 ABG Base Excess ABG Hemoglobin Oxyhemoglobin Sodium Potassium Chloride Carbon Dioxide BUN Creatinine Glucose POC Glucose 106 H 117 H 120 H Lactic Acid Calcium Phosphorus Magnesium Direct Bilirubin AST ALT Alkaline Phosphatase Lactate Dehydrogenase Troponin T C-Reactive Protein Total Protein Albumin Prealbumin Triglycerides Cholesterol LDL Cholesterol Direct HDL Cholesterol Urine pH Urine WBC (Auto) Urine Creatinine Urine Total Protein Fluid Total Protein Vancomycin Trough Rheumatoid Factor Complement C4 Miscellaneous Test Crossmatch 10/31/16 10/31/16 10/31/16 05:43 07:15 07:15 WBC 12.1 H RBC 2.63 L Hgb 7.7 L Hct 23.3 L MCV MCH MCHC RDW 16.7 H Plt Count Lymph % (Auto) 11.7 L [place] % (Auto) 7.7 H Lymph # [place] # 0.9 H Baso # Seg Neutrophils % 78.0 H Seg Neuts % (Manual) Lymphocytes % (Manual) Monocytes % (Manual) Eosinophils % (Manual) Basophils % (Manual) Nucleated RBC % Seg Neutrophils # 9.4 H Seg Neutrophils # Man Lymphocytes # (Manual) Monocytes # (Manual) Eosinophils # (Manual) Basophils # (Manual) PT INR Fibrinogen dRVVT Confirm Interp Factor V Activity POC ABG pH POC ABG pCO2 POC ABG pO2 ABG pO2 ABG HCO3 ABG Base Excess ABG Hemoglobin Oxyhemoglobin Sodium Potassium Chloride 96.4 L Carbon Dioxide 21 L BUN 99 H Creatinine 2.6 H Glucose 144 H POC Glucose 125 H Lactic Acid Calcium Phosphorus 4.80 H Magnesium Direct Bilirubin AST ALT Alkaline Phosphatase Lactate Dehydrogenase Troponin T C-Reactive Protein Total Protein Albumin Prealbumin Triglycerides Cholesterol LDL Cholesterol Direct HDL Cholesterol Urine pH Urine WBC (Auto) Urine Creatinine Urine Total Protein Fluid Total Protein Vancomycin Trough Rheumatoid Factor Complement C4 Miscellaneous Test Crossmatch 10/31/16 10/31/16 11/01/16 11:46 18:34 00:20 WBC RBC Hgb Hct MCV MCH MCHC RDW Plt Count Lymph % (Auto) [place] % (Auto) Lymph # [place] # Baso # Seg Neutrophils % Seg Neuts % (Manual) Lymphocytes % (Manual) Monocytes % (Manual) Eosinophils % (Manual) Basophils % (Manual) Nucleated RBC % Seg Neutrophils # Seg Neutrophils # Man Lymphocytes # (Manual) Monocytes # (Manual) Eosinophils # (Manual) Basophils # (Manual) PT INR Fibrinogen dRVVT Confirm Interp Factor V Activity POC ABG pH POC ABG pCO2 POC ABG pO2 ABG pO2 ABG HCO3 ABG Base Excess ABG Hemoglobin Oxyhemoglobin Sodium Potassium Chloride Carbon Dioxide BUN Creatinine Glucose POC Glucose 159 H 140 H 132 H Lactic Acid Calcium Phosphorus Magnesium Direct Bilirubin AST ALT Alkaline Phosphatase Lactate Dehydrogenase Troponin T C-Reactive Protein Total Protein Albumin Prealbumin Triglycerides Cholesterol LDL Cholesterol Direct HDL Cholesterol Urine pH Urine WBC (Auto) Urine Creatinine Urine Total Protein Fluid Total Protein Vancomycin Trough Rheumatoid Factor Complement C4 Miscellaneous Test Crossmatch 11/01/16 11/01/16 11/01/16 04:55 04:55 06:11 WBC 11.2 H RBC 2.68 L Hgb 7.5 L Hct 23.7 L MCV MCH MCHC RDW 16.1 H Plt Count Lymph % (Auto) [place] % (Auto) 9.8 H Lymph # [place] # 1.1 H Baso # Seg Neutrophils % 70.8 H Seg Neuts % (Manual) Lymphocytes % (Manual) Monocytes % (Manual) Eosinophils % (Manual) Basophils % (Manual) Nucleated RBC % Seg Neutrophils # 7.9 H Seg Neutrophils # Man Lymphocytes # (Manual) Monocytes # (Manual) Eosinophils # (Manual) Basophils # (Manual) PT INR Fibrinogen dRVVT Confirm Interp Factor V Activity POC ABG pH POC ABG pCO2 POC ABG pO2 ABG pO2 ABG HCO3 ABG Base Excess ABG Hemoglobin Oxyhemoglobin Sodium Potassium 3.3 L D Chloride Carbon Dioxide BUN 61 H Creatinine 1.9 H Glucose 114 H POC Glucose 115 H Lactic Acid Calcium Phosphorus 1.80 L D Magnesium Direct Bilirubin AST ALT Alkaline Phosphatase Lactate Dehydrogenase Troponin T C-Reactive Protein Total Protein Albumin Prealbumin Triglycerides Cholesterol LDL Cholesterol Direct HDL Cholesterol Urine pH Urine WBC (Auto) Urine Creatinine Urine Total Protein Fluid Total Protein Vancomycin Trough Rheumatoid Factor Complement C4 Miscellaneous Test Crossmatch 11/01/16 11/01/16 11/01/16 12:29 18:23 23:58 WBC RBC Hgb Hct MCV MCH MCHC RDW Plt Count Lymph % (Auto) [place] % (Auto) Lymph # [place] # Baso # Seg Neutrophils % Seg Neuts % (Manual) Lymphocytes % (Manual) Monocytes % (Manual) Eosinophils % (Manual) Basophils % (Manual) Nucleated RBC % Seg Neutrophils # Seg Neutrophils # Man Lymphocytes # (Manual) Monocytes # (Manual) Eosinophils # (Manual) Basophils # (Manual) PT INR Fibrinogen dRVVT Confirm Interp Factor V Activity POC ABG pH POC ABG pCO2 POC ABG pO2 ABG pO2 ABG HCO3 ABG Base Excess ABG Hemoglobin Oxyhemoglobin Sodium Potassium Chloride Carbon Dioxide BUN Creatinine Glucose POC Glucose 142 H 143 H 128 H Lactic Acid Calcium Phosphorus Magnesium Direct Bilirubin AST ALT Alkaline Phosphatase Lactate Dehydrogenase Troponin T C-Reactive Protein Total Protein Albumin Prealbumin Triglycerides Cholesterol LDL Cholesterol Direct HDL Cholesterol Urine pH Urine WBC (Auto) Urine Creatinine Urine Total Protein Fluid Total Protein Vancomycin Trough Rheumatoid Factor Complement C4 Miscellaneous Test Crossmatch 11/02/16 11/02/16 11/02/16 04:16 05:29 11:58 WBC RBC Hgb Hct MCV MCH MCHC RDW Plt Count Lymph % (Auto) [place] % (Auto) Lymph # [place] # Baso # Seg Neutrophils % Seg Neuts % (Manual) Lymphocytes % (Manual) Monocytes % (Manual) Eosinophils % (Manual) Basophils % (Manual) Nucleated RBC % Seg Neutrophils # Seg Neutrophils # Man Lymphocytes # (Manual) Monocytes # (Manual) Eosinophils # (Manual) Basophils # (Manual) PT INR Fibrinogen dRVVT Confirm Interp Factor V Activity POC ABG pH POC ABG pCO2 POC ABG pO2 ABG pO2 ABG HCO3 ABG Base Excess ABG Hemoglobin Oxyhemoglobin Sodium Potassium 3.1 L Chloride Carbon Dioxide BUN 73 H Creatinine 2.3 H Glucose 112 H POC Glucose 135 H 149 H Lactic Acid Calcium Phosphorus Magnesium Direct Bilirubin AST ALT Alkaline Phosphatase Lactate Dehydrogenase Troponin T C-Reactive Protein Total Protein Albumin Prealbumin Triglycerides Cholesterol LDL Cholesterol Direct HDL Cholesterol Urine pH Urine WBC (Auto) Urine Creatinine Urine Total Protein Fluid Total Protein Vancomycin Trough Rheumatoid Factor Complement C4 Miscellaneous Test Crossmatch 11/02/16 11/02/16 11/03/16 17:42 22:54 06:00 WBC RBC Hgb Hct MCV MCH MCHC RDW Plt Count Lymph % (Auto) [place] % (Auto) Lymph # [place] # Baso # Seg Neutrophils % Seg Neuts % (Manual) Lymphocytes % (Manual) Monocytes % (Manual) Eosinophils % (Manual) Basophils % (Manual) Nucleated RBC % Seg Neutrophils # Seg Neutrophils # Man Lymphocytes # (Manual) Monocytes # (Manual) Eosinophils # (Manual) Basophils # (Manual) PT INR Fibrinogen dRVVT Confirm Interp Factor V Activity POC ABG pH POC ABG pCO2 POC ABG pO2 ABG pO2 ABG HCO3 ABG Base Excess ABG Hemoglobin Oxyhemoglobin Sodium Potassium Chloride 96.7 L Carbon Dioxide BUN 41 H Creatinine 1.5 H Glucose 145 H POC Glucose 182 H 115 H Lactic Acid Calcium Phosphorus 1.60 L D Magnesium 1.50 L Direct Bilirubin AST ALT Alkaline Phosphatase Lactate Dehydrogenase Troponin T C-Reactive Protein Total Protein Albumin Prealbumin Triglycerides Cholesterol LDL Cholesterol Direct HDL Cholesterol Urine pH Urine WBC (Auto) Urine Creatinine Urine Total Protein Fluid Total Protein Vancomycin Trough Rheumatoid Factor Complement C4 Miscellaneous Test Crossmatch 11/03/16 11/03/16 11/03/16 11:53 17:45 23:37 WBC RBC Hgb Hct MCV MCH MCHC RDW Plt Count Lymph % (Auto) [place] % (Auto) Lymph # [place] # Baso # Seg Neutrophils % Seg Neuts % (Manual) Lymphocytes % (Manual) Monocytes % (Manual) Eosinophils % (Manual) Basophils % (Manual) Nucleated RBC % Seg Neutrophils # Seg Neutrophils # Man Lymphocytes # (Manual) Monocytes # (Manual) Eosinophils # (Manual) Basophils # (Manual) PT INR Fibrinogen dRVVT Confirm Interp Factor V Activity POC ABG pH POC ABG pCO2 POC ABG pO2 ABG pO2 ABG HCO3 ABG Base Excess ABG Hemoglobin Oxyhemoglobin Sodium Potassium Chloride Carbon Dioxide BUN Creatinine Glucose POC Glucose 131 H 134 H 113 H Lactic Acid Calcium Phosphorus Magnesium Direct Bilirubin AST ALT Alkaline Phosphatase Lactate Dehydrogenase Troponin T C-Reactive Protein Total Protein Albumin Prealbumin Triglycerides Cholesterol LDL Cholesterol Direct HDL Cholesterol Urine pH Urine WBC (Auto) Urine Creatinine Urine Total Protein Fluid Total Protein Vancomycin Trough Rheumatoid Factor Complement C4 Miscellaneous Test Crossmatch 11/04/16 11/04/16 11/04/16 05:41 06:00 12:10 WBC RBC Hgb Hct MCV MCH MCHC RDW Plt Count Lymph % (Auto) [place] % (Auto) Lymph # [place] # Baso # Seg Neutrophils % Seg Neuts % (Manual) Lymphocytes % (Manual) Monocytes % (Manual) Eosinophils % (Manual) Basophils % (Manual) Nucleated RBC % Seg Neutrophils # Seg Neutrophils # Man Lymphocytes # (Manual) Monocytes # (Manual) Eosinophils # (Manual) Basophils # (Manual) PT INR Fibrinogen dRVVT Confirm Interp Factor V Activity POC ABG pH POC ABG pCO2 POC ABG pO2 ABG pO2 ABG HCO3 ABG Base Excess ABG Hemoglobin Oxyhemoglobin Sodium Potassium Chloride 96.7 L Carbon Dioxide BUN 52 H Creatinine 1.9 H Glucose 126 H POC Glucose 137 H 191 H Lactic Acid Calcium Phosphorus Magnesium Direct Bilirubin AST ALT Alkaline Phosphatase Lactate Dehydrogenase Troponin T C-Reactive Protein Total Protein Albumin Prealbumin Triglycerides Cholesterol LDL Cholesterol Direct HDL Cholesterol Urine pH Urine WBC (Auto) Urine Creatinine Urine Total Protein Fluid Total Protein Vancomycin Trough Rheumatoid Factor Complement C4 Miscellaneous Test Crossmatch 11/04/16 11/05/16 11/05/16 22:57 03:10 05:10 WBC RBC Hgb Hct MCV MCH MCHC RDW Plt Count Lymph % (Auto) [place] % (Auto) Lymph # [place] # Baso # Seg Neutrophils % Seg Neuts % (Manual) Lymphocytes % (Manual) Monocytes % (Manual) Eosinophils % (Manual) Basophils % (Manual) Nucleated RBC % Seg Neutrophils # Seg Neutrophils # Man Lymphocytes # (Manual) Monocytes # (Manual) Eosinophils # (Manual) Basophils # (Manual) PT INR Fibrinogen dRVVT Confirm Interp Factor V Activity POC ABG pH POC ABG pCO2 POC ABG pO2 ABG pO2 ABG HCO3 ABG Base Excess ABG Hemoglobin Oxyhemoglobin Sodium 136 L Potassium Chloride 97.2 L Carbon Dioxide BUN 32 H Creatinine 1.3 H Glucose 123 H POC Glucose 125 H 108 H Lactic Acid Calcium 7.8 L Phosphorus Magnesium Direct Bilirubin AST ALT Alkaline Phosphatase Lactate Dehydrogenase Troponin T C-Reactive Protein Total Protein Albumin Prealbumin Triglycerides Cholesterol LDL Cholesterol Direct HDL Cholesterol Urine pH Urine WBC (Auto) Urine Creatinine Urine Total Protein Fluid Total Protein Vancomycin Trough Rheumatoid Factor Complement C4 Miscellaneous Test Crossmatch 11/05/16 11/05/16 11/05/16 12:23 13:09 13:25 WBC RBC Hgb Hct MCV MCH MCHC RDW Plt Count Lymph % (Auto) [place] % (Auto) Lymph # [place] # Baso # Seg Neutrophils % Seg Neuts % (Manual) Lymphocytes % (Manual) Monocytes % (Manual) Eosinophils % (Manual) Basophils % (Manual) Nucleated RBC % Seg Neutrophils # Seg Neutrophils # Man Lymphocytes # (Manual) Monocytes # (Manual) Eosinophils # (Manual) Basophils # (Manual) PT INR Fibrinogen dRVVT Confirm Interp Factor V Activity POC ABG pH POC ABG pCO2 POC ABG pO2 ABG pO2 ABG HCO3 ABG Base Excess ABG Hemoglobin Oxyhemoglobin Sodium Potassium Chloride Carbon Dioxide BUN Creatinine Glucose POC Glucose 124 H Lactic Acid Calcium Phosphorus Magnesium Direct Bilirubin AST ALT Alkaline Phosphatase Lactate Dehydrogenase Troponin T C-Reactive Protein 11.40 H Total Protein Albumin Prealbumin Triglycerides Cholesterol LDL Cholesterol Direct HDL Cholesterol Urine pH 9.0 H Urine WBC (Auto) Urine Creatinine Urine Total Protein Fluid Total Protein Vancomycin Trough Rheumatoid Factor Complement C4 Miscellaneous Test Crossmatch 11/05/16 11/05/16 11/05/16 13:25 17:54 23:42 WBC RBC Hgb Hct MCV MCH MCHC RDW Plt Count Lymph % (Auto) [place] % (Auto) Lymph # [place] # Baso # Seg Neutrophils % Seg Neuts % (Manual) Lymphocytes % (Manual) Monocytes % (Manual) Eosinophils % (Manual) Basophils % (Manual) Nucleated RBC % Seg Neutrophils # Seg Neutrophils # Man Lymphocytes # (Manual) Monocytes # (Manual) Eosinophils # (Manual) Basophils # (Manual) PT INR Fibrinogen dRVVT Confirm Interp Factor V Activity POC ABG pH POC ABG pCO2 POC ABG pO2 ABG pO2 ABG HCO3 ABG Base Excess ABG Hemoglobin Oxyhemoglobin Sodium Potassium Chloride Carbon Dioxide BUN Creatinine Glucose POC Glucose 114 H 134 H Lactic Acid Calcium Phosphorus Magnesium Direct Bilirubin AST ALT Alkaline Phosphatase Lactate Dehydrogenase Troponin T C-Reactive Protein Total Protein Albumin Prealbumin Triglycerides Cholesterol LDL Cholesterol Direct HDL Cholesterol Urine pH Urine WBC (Auto) Urine Creatinine Urine Total Protein Fluid Total Protein Vancomycin Trough Rheumatoid Factor Complement C4 Miscellaneous Test Flexitest 1 H Crossmatch 11/06/16 11/06/16 11/06/16 04:56 06:25 06:25 WBC RBC 2.50 L Hgb 7.3 L Hct 22.5 L MCV MCH MCHC RDW 16.9 H Plt Count Lymph % (Auto) [place] % (Auto) 10.5 H Lymph # [place] # 1.1 H Baso # Seg Neutrophils % Seg Neuts % (Manual) Lymphocytes % (Manual) Monocytes % (Manual) Eosinophils % (Manual) Basophils % (Manual) Nucleated RBC % Seg Neutrophils # Seg Neutrophils # Man Lymphocytes # (Manual) Monocytes # (Manual) Eosinophils # (Manual) Basophils # (Manual) PT INR Fibrinogen dRVVT Confirm Interp Factor V Activity POC ABG pH POC ABG pCO2 POC ABG pO2 ABG pO2 ABG HCO3 ABG Base Excess ABG Hemoglobin Oxyhemoglobin Sodium Potassium 5.1 H Chloride 95.9 L Carbon Dioxide BUN 52 H Creatinine 1.8 H Glucose 117 H POC Glucose 120 H Lactic Acid Calcium Phosphorus Magnesium Direct Bilirubin AST 103 H ALT 77 H Alkaline Phosphatase 285 H Lactate Dehydrogenase Troponin T C-Reactive Protein Total Protein 6.2 L Albumin 1.8 L Prealbumin 0.180 L Triglycerides Cholesterol LDL Cholesterol Direct HDL Cholesterol Urine pH Urine WBC (Auto) Urine Creatinine Urine Total Protein Fluid Total Protein Vancomycin Trough Rheumatoid Factor Complement C4 Miscellaneous Test Crossmatch 11/06/16 11/06/16 11/06/16 11:56 17:14 23:52 WBC RBC Hgb Hct MCV MCH MCHC RDW Plt Count Lymph % (Auto) [place] % (Auto) Lymph # [place] # Baso # Seg Neutrophils % Seg Neuts % (Manual) Lymphocytes % (Manual) Monocytes % (Manual) Eosinophils % (Manual) Basophils % (Manual) Nucleated RBC % Seg Neutrophils # Seg Neutrophils # Man Lymphocytes # (Manual) Monocytes # (Manual) Eosinophils # (Manual) Basophils # (Manual) PT INR Fibrinogen dRVVT Confirm Interp Factor V Activity POC ABG pH POC ABG pCO2 POC ABG pO2 ABG pO2 ABG HCO3 ABG Base Excess ABG Hemoglobin Oxyhemoglobin Sodium Potassium Chloride Carbon Dioxide BUN Creatinine Glucose POC Glucose 141 H 125 H 130 H Lactic Acid Calcium Phosphorus Magnesium Direct Bilirubin AST ALT Alkaline Phosphatase Lactate Dehydrogenase Troponin T C-Reactive Protein Total Protein Albumin Prealbumin Triglycerides Cholesterol LDL Cholesterol Direct HDL Cholesterol Urine pH Urine WBC (Auto) Urine Creatinine Urine Total Protein Fluid Total Protein Vancomycin Trough Rheumatoid Factor Complement C4 Miscellaneous Test Crossmatch 11/07/16 11/07/16 11/07/16 06:30 06:30 09:37 WBC RBC 2.18 L Hgb 6.3 L Hct 19.7 L* MCV MCH MCHC RDW 16.8 H Plt Count Lymph % (Auto) [place] % (Auto) 10.0 H Lymph # [place] # 1.0 H Baso # Seg Neutrophils % Seg Neuts % (Manual) Lymphocytes % (Manual) Monocytes % (Manual) Eosinophils % (Manual) Basophils % (Manual) Nucleated RBC % Seg Neutrophils # Seg Neutrophils # Man Lymphocytes # (Manual) Monocytes # (Manual) Eosinophils # (Manual) Basophils # (Manual) PT INR Fibrinogen dRVVT Confirm Interp Factor V Activity POC ABG pH POC ABG pCO2 POC ABG pO2 ABG pO2 ABG HCO3 ABG Base Excess ABG Hemoglobin Oxyhemoglobin Sodium 135 L Potassium Chloride 95.6 L Carbon Dioxide BUN 70 H Creatinine 2.0 H Glucose 126 H POC Glucose Lactic Acid Calcium Phosphorus Magnesium Direct Bilirubin AST ALT Alkaline Phosphatase Lactate Dehydrogenase Troponin T C-Reactive Protein Total Protein Albumin Prealbumin Triglycerides Cholesterol LDL Cholesterol Direct HDL Cholesterol Urine pH Urine WBC (Auto) Urine Creatinine Urine Total Protein Fluid Total Protein Vancomycin Trough Rheumatoid Factor Complement C4 Miscellaneous Test Crossmatch See Detail 11/07/16 11/07/16 11/07/16 12:52 18:51 21:26 WBC RBC Hgb Hct MCV MCH MCHC RDW Plt Count Lymph % (Auto) [place] % (Auto) Lymph # [place] # Baso # Seg Neutrophils % Seg Neuts % (Manual) Lymphocytes % (Manual) Monocytes % (Manual) Eosinophils % (Manual) Basophils % (Manual) Nucleated RBC % Seg Neutrophils # Seg Neutrophils # Man Lymphocytes # (Manual) Monocytes # (Manual) Eosinophils # (Manual) Basophils # (Manual) PT INR Fibrinogen dRVVT Confirm Interp Factor V Activity POC ABG pH 7.523 H POC ABG pCO2 34.6 L POC ABG pO2 53 L ABG pO2 ABG HCO3 ABG Base Excess ABG Hemoglobin Oxyhemoglobin Sodium Potassium Chloride Carbon Dioxide BUN Creatinine Glucose POC Glucose 142 H 155 H Lactic Acid Calcium Phosphorus Magnesium Direct Bilirubin AST ALT Alkaline Phosphatase Lactate Dehydrogenase Troponin T C-Reactive Protein Total Protein Albumin Prealbumin Triglycerides Cholesterol LDL Cholesterol Direct HDL Cholesterol Urine pH Urine WBC (Auto) Urine Creatinine Urine Total Protein Fluid Total Protein Vancomycin Trough Rheumatoid Factor Complement C4 Miscellaneous Test Crossmatch 11/07/16 11/08/16 11/08/16 21:34 13:03 23:37 WBC RBC 2.63 L Hgb 7.7 L Hct 22.7 L MCV MCH MCHC RDW 17.0 H Plt Count Lymph % (Auto) [place] % (Auto) Lymph # [place] # Baso # Seg Neutrophils % Seg Neuts % (Manual) Lymphocytes % (Manual) Monocytes % (Manual) Eosinophils % (Manual) Basophils % (Manual) Nucleated RBC % Seg Neutrophils # Seg Neutrophils # Man Lymphocytes # (Manual) Monocytes # (Manual) Eosinophils # (Manual) Basophils # (Manual) PT INR Fibrinogen dRVVT Confirm Interp Factor V Activity POC ABG pH 7.478 H POC ABG pCO2 34.0 L POC ABG pO2 50 L ABG pO2 ABG HCO3 ABG Base Excess ABG Hemoglobin Oxyhemoglobin Sodium Potassium Chloride Carbon Dioxide BUN Creatinine Glucose POC Glucose 113 H Lactic Acid Calcium Phosphorus Magnesium Direct Bilirubin AST ALT Alkaline Phosphatase Lactate Dehydrogenase Troponin T C-Reactive Protein Total Protein Albumin Prealbumin Triglycerides Cholesterol LDL Cholesterol Direct HDL Cholesterol Urine pH Urine WBC (Auto) Urine Creatinine Urine Total Protein Fluid Total Protein Vancomycin Trough Rheumatoid Factor Complement C4 Miscellaneous Test Crossmatch 11/09/16 11/09/16 11/09/16 04:35 10:15 18:21 WBC RBC 2.68 L Hgb 7.8 L Hct 23.3 L MCV MCH MCHC RDW 17.0 H Plt Count Lymph % (Auto) [place] % (Auto) 12.1 H Lymph # [place] # 1.1 H Baso # Seg Neutrophils % Seg Neuts % (Manual) Lymphocytes % (Manual) Monocytes % (Manual) Eosinophils % (Manual) Basophils % (Manual) Nucleated RBC % Seg Neutrophils # Seg Neutrophils # Man Lymphocytes # (Manual) Monocytes # (Manual) Eosinophils # (Manual) Basophils # (Manual) PT INR Fibrinogen dRVVT Confirm Interp Factor V Activity POC ABG pH POC ABG pCO2 POC ABG pO2 ABG pO2 ABG HCO3 ABG Base Excess ABG Hemoglobin Oxyhemoglobin Sodium Potassium Chloride Carbon Dioxide BUN 51 H Creatinine 1.8 H Glucose POC Glucose 60 L Lactic Acid Calcium 8.3 L Phosphorus Magnesium Direct Bilirubin AST ALT Alkaline Phosphatase Lactate Dehydrogenase Troponin T C-Reactive Protein Total Protein Albumin Prealbumin Triglycerides Cholesterol LDL Cholesterol Direct HDL Cholesterol Urine pH Urine WBC (Auto) Urine Creatinine Urine Total Protein Fluid Total Protein Vancomycin Trough Rheumatoid Factor Complement C4 Miscellaneous Test Crossmatch 11/09/16 11/10/16 11/10/16 18:55 07:00 11:51 WBC RBC Hgb Hct MCV MCH MCHC RDW Plt Count Lymph % (Auto) [place] % (Auto) Lymph # [place] # Baso # Seg Neutrophils % Seg Neuts % (Manual) Lymphocytes % (Manual) Monocytes % (Manual) Eosinophils % (Manual) Basophils % (Manual) Nucleated RBC % Seg Neutrophils # Seg Neutrophils # Man Lymphocytes # (Manual) Monocytes # (Manual) Eosinophils # (Manual) Basophils # (Manual) PT INR Fibrinogen dRVVT Confirm Interp Factor V Activity POC ABG pH POC ABG pCO2 POC ABG pO2 ABG pO2 ABG HCO3 ABG Base Excess ABG Hemoglobin Oxyhemoglobin Sodium Potassium 3.0 L D Chloride 97.4 L Carbon Dioxide BUN 28 H Creatinine 1.3 H Glucose POC Glucose 68 L 120 H Lactic Acid Calcium 7.8 L Phosphorus Magnesium Direct Bilirubin AST ALT Alkaline Phosphatase Lactate Dehydrogenase Troponin T C-Reactive Protein Total Protein Albumin Prealbumin Triglycerides Cholesterol LDL Cholesterol Direct HDL Cholesterol Urine pH Urine WBC (Auto) Urine Creatinine Urine Total Protein Fluid Total Protein Vancomycin Trough Rheumatoid Factor Complement C4 Miscellaneous Test Crossmatch 11/10/16 11/11/16 11/11/16 14:20 06:59 06:59 WBC RBC 2.81 L Hgb 8.1 L Hct 24.4 L MCV MCH MCHC RDW 16.4 H Plt Count Lymph % (Auto) [place] % (Auto) 10.8 H Lymph # [place] # 1.0 H Baso # Seg Neutrophils % Seg Neuts % (Manual) Lymphocytes % (Manual) Monocytes % (Manual) Eosinophils % (Manual) Basophils % (Manual) Nucleated RBC % Seg Neutrophils # Seg Neutrophils # Man Lymphocytes # (Manual) Monocytes # (Manual) Eosinophils # (Manual) Basophils # (Manual) PT INR Fibrinogen dRVVT Confirm Interp Factor V Activity POC ABG pH POC ABG pCO2 POC ABG pO2 ABG pO2 ABG HCO3 ABG Base Excess ABG Hemoglobin Oxyhemoglobin Sodium Potassium Chloride Carbon Dioxide BUN Creatinine Glucose POC Glucose Lactic Acid Calcium Phosphorus Magnesium Direct Bilirubin AST ALT Alkaline Phosphatase Lactate Dehydrogenase 196 H Troponin T C-Reactive Protein Total Protein 6.1 L Albumin Prealbumin Triglycerides Cholesterol LDL Cholesterol Direct HDL Cholesterol Urine pH Urine WBC (Auto) Urine Creatinine Urine Total Protein Fluid Total Protein < 3.0 L Vancomycin Trough Rheumatoid Factor Complement C4 Miscellaneous Test Crossmatch 11/11/16 11/11/16 11/12/16 06:59 09:50 04:00 WBC RBC Hgb Hct MCV MCH MCHC RDW Plt Count Lymph % (Auto) [place] % (Auto) Lymph # [place] # Baso # Seg Neutrophils % Seg Neuts % (Manual) Lymphocytes % (Manual) Monocytes % (Manual) Eosinophils % (Manual) Basophils % (Manual) Nucleated RBC % Seg Neutrophils # Seg Neutrophils # Man Lymphocytes # (Manual) Monocytes # (Manual) Eosinophils # (Manual) Basophils # (Manual) PT INR 1.18 H Fibrinogen dRVVT Confirm Interp Factor V Activity POC ABG pH POC ABG pCO2 POC ABG pO2 ABG pO2 ABG HCO3 ABG Base Excess ABG Hemoglobin Oxyhemoglobin Sodium 136 L 133 L Potassium Chloride 96.1 L 94.8 L Carbon Dioxide 21 L BUN 37 H 42 H Creatinine 1.8 H 2.0 H Glucose POC Glucose Lactic Acid Calcium Phosphorus Magnesium Direct Bilirubin AST ALT Alkaline Phosphatase Lactate Dehydrogenase Troponin T C-Reactive Protein Total Protein Albumin Prealbumin Triglycerides Cholesterol LDL Cholesterol Direct HDL Cholesterol Urine pH Urine WBC (Auto) Urine Creatinine Urine Total Protein Fluid Total Protein Vancomycin Trough Rheumatoid Factor Complement C4 Miscellaneous Test Crossmatch 11/12/16 11/12/16 11/13/16 04:00 23:55 05:53 WBC RBC Hgb 8.9 L Hct 27.2 L MCV MCH MCHC RDW Plt Count Lymph % (Auto) [place] % (Auto) Lymph # [place] # Baso # Seg Neutrophils % Seg Neuts % (Manual) Lymphocytes % (Manual) Monocytes % (Manual) Eosinophils % (Manual) Basophils % (Manual) Nucleated RBC % Seg Neutrophils # Seg Neutrophils # Man Lymphocytes # (Manual) Monocytes # (Manual) Eosinophils # (Manual) Basophils # (Manual) PT INR Fibrinogen dRVVT Confirm Interp Factor V Activity POC ABG pH POC ABG pCO2 POC ABG pO2 ABG pO2 ABG HCO3 ABG Base Excess ABG Hemoglobin Oxyhemoglobin Sodium Potassium Chloride Carbon Dioxide BUN Creatinine Glucose POC Glucose 132 H 120 H Lactic Acid Calcium Phosphorus Magnesium Direct Bilirubin AST ALT Alkaline Phosphatase Lactate Dehydrogenase Troponin T C-Reactive Protein Total Protein Albumin Prealbumin Triglycerides Cholesterol LDL Cholesterol Direct HDL Cholesterol Urine pH Urine WBC (Auto) Urine Creatinine Urine Total Protein Fluid Total Protein Vancomycin Trough Rheumatoid Factor Complement C4 Miscellaneous Test Crossmatch 11/13/16 11/13/16 11/13/16 11:43 17:09 23:41 WBC RBC Hgb Hct MCV MCH MCHC RDW Plt Count Lymph % (Auto) [place] % (Auto) Lymph # [place] # Baso # Seg Neutrophils % Seg Neuts % (Manual) Lymphocytes % (Manual) Monocytes % (Manual) Eosinophils % (Manual) Basophils % (Manual) Nucleated RBC % Seg Neutrophils # Seg Neutrophils # Man Lymphocytes # (Manual) Monocytes # (Manual) Eosinophils # (Manual) Basophils # (Manual) PT INR Fibrinogen dRVVT Confirm Interp Factor V Activity POC ABG pH POC ABG pCO2 POC ABG pO2 ABG pO2 ABG HCO3 ABG Base Excess ABG Hemoglobin Oxyhemoglobin Sodium Potassium Chloride Carbon Dioxide BUN Creatinine Glucose POC Glucose 114 H 113 H 108 H Lactic Acid Calcium Phosphorus Magnesium Direct Bilirubin AST ALT Alkaline Phosphatase Lactate Dehydrogenase Troponin T C-Reactive Protein Total Protein Albumin Prealbumin Triglycerides Cholesterol LDL Cholesterol Direct HDL Cholesterol Urine pH Urine WBC (Auto) Urine Creatinine Urine Total Protein Fluid Total Protein Vancomycin Trough Rheumatoid Factor Complement C4 Miscellaneous Test Crossmatch 11/13/16 11/15/16 11/15/16 Unknown 00:37 03:30 WBC 11.2 H RBC 2.72 L Hgb 7.6 L Hct 23.4 L MCV MCH MCHC RDW 16.5 H Plt Count Lymph % (Auto) [place] % (Auto) Lymph # [place] # Baso # Seg Neutrophils % Seg Neuts % (Manual) Lymphocytes % (Manual) Monocytes % (Manual) Eosinophils % (Manual) Basophils % (Manual) Nucleated RBC % Seg Neutrophils # Seg Neutrophils # Man Lymphocytes # (Manual) Monocytes # (Manual) Eosinophils # (Manual) Basophils # (Manual) PT INR Fibrinogen dRVVT Confirm Interp Factor V Activity POC ABG pH POC ABG pCO2 POC ABG pO2 ABG pO2 ABG HCO3 ABG Base Excess ABG Hemoglobin Oxyhemoglobin Sodium 135 L Potassium Chloride 95.2 L Carbon Dioxide BUN 52 H Creatinine 2.2 H Glucose POC Glucose 108 H Lactic Acid Calcium Phosphorus Magnesium Direct Bilirubin AST ALT Alkaline Phosphatase Lactate Dehydrogenase Troponin T C-Reactive Protein Total Protein Albumin Prealbumin Triglycerides Cholesterol LDL Cholesterol Direct HDL Cholesterol Urine pH Urine WBC (Auto) Urine Creatinine Urine Total Protein Fluid Total Protein Vancomycin Trough Rheumatoid Factor Complement C4 Miscellaneous Test Crossmatch 11/15/16 11/15/16 11/15/16 03:30 05:04 11:50 WBC RBC Hgb Hct MCV MCH MCHC RDW Plt Count Lymph % (Auto) [place] % (Auto) Lymph # [place] # Baso # Seg Neutrophils % Seg Neuts % (Manual) Lymphocytes % (Manual) Monocytes % (Manual) Eosinophils % (Manual) Basophils % (Manual) Nucleated RBC % Seg Neutrophils # Seg Neutrophils # Man Lymphocytes # (Manual) Monocytes # (Manual) Eosinophils # (Manual) Basophils # (Manual) PT INR Fibrinogen dRVVT Confirm Interp Factor V Activity POC ABG pH POC ABG pCO2 POC ABG pO2 ABG pO2 ABG HCO3 ABG Base Excess ABG Hemoglobin Oxyhemoglobin Sodium Potassium 3.4 L Chloride Carbon Dioxide BUN 25 H Creatinine 1.5 H Glucose 103 H POC Glucose 121 H 144 H Lactic Acid Calcium Phosphorus Magnesium Direct Bilirubin AST ALT Alkaline Phosphatase Lactate Dehydrogenase Troponin T C-Reactive Protein Total Protein Albumin Prealbumin Triglycerides Cholesterol LDL Cholesterol Direct HDL Cholesterol Urine pH Urine WBC (Auto) Urine Creatinine Urine Total Protein Fluid Total Protein Vancomycin Trough Rheumatoid Factor Complement C4 Miscellaneous Test Crossmatch 11/15/16 11/15/16 11/16/16 21:28 23:20 11:44 WBC RBC Hgb Hct MCV MCH MCHC RDW Plt Count Lymph % (Auto) [place] % (Auto) Lymph # [place] # Baso # Seg Neutrophils % Seg Neuts % (Manual) Lymphocytes % (Manual) Monocytes % (Manual) Eosinophils % (Manual) Basophils % (Manual) Nucleated RBC % Seg Neutrophils # Seg Neutrophils # Man Lymphocytes # (Manual) Monocytes # (Manual) Eosinophils # (Manual) Basophils # (Manual) PT INR Fibrinogen dRVVT Confirm Interp Factor V Activity POC ABG pH 7.462 H POC ABG pCO2 POC ABG pO2 71 L ABG pO2 ABG HCO3 ABG Base Excess ABG Hemoglobin Oxyhemoglobin Sodium Potassium Chloride Carbon Dioxide BUN Creatinine Glucose POC Glucose 116 H 133 H Lactic Acid Calcium Phosphorus Magnesium Direct Bilirubin AST ALT Alkaline Phosphatase Lactate Dehydrogenase Troponin T C-Reactive Protein Total Protein Albumin Prealbumin Triglycerides Cholesterol LDL Cholesterol Direct HDL Cholesterol Urine pH Urine WBC (Auto) Urine Creatinine Urine Total Protein Fluid Total Protein Vancomycin Trough Rheumatoid Factor Complement C4 Miscellaneous Test Crossmatch 11/16/16 11/16/16 11/16/16 12:20 17:05 23:35 WBC 11.7 H RBC 2.73 L Hgb 7.6 L Hct 23.7 L MCV MCH MCHC RDW 16.6 H Plt Count Lymph % (Auto) [place] % (Auto) Lymph # [place] # Baso # Seg Neutrophils % Seg Neuts % (Manual) Lymphocytes % (Manual) Monocytes % (Manual) Eosinophils % (Manual) Basophils % (Manual) Nucleated RBC % Seg Neutrophils # Seg Neutrophils # Man Lymphocytes # (Manual) Monocytes # (Manual) Eosinophils # (Manual) Basophils # (Manual) PT INR Fibrinogen dRVVT Confirm Interp Factor V Activity POC ABG pH POC ABG pCO2 POC ABG pO2 ABG pO2 ABG HCO3 ABG Base Excess ABG Hemoglobin Oxyhemoglobin Sodium Potassium Chloride Carbon Dioxide BUN Creatinine Glucose POC Glucose 154 H 125 H Lactic Acid Calcium Phosphorus Magnesium Direct Bilirubin AST ALT Alkaline Phosphatase Lactate Dehydrogenase Troponin T C-Reactive Protein Total Protein Albumin Prealbumin Triglycerides Cholesterol LDL Cholesterol Direct HDL Cholesterol Urine pH Urine WBC (Auto) Urine Creatinine Urine Total Protein Fluid Total Protein Vancomycin Trough Rheumatoid Factor Complement C4 Miscellaneous Test Crossmatch 11/17/16 11/17/16 11/17/16 03:20 03:20 03:20 WBC RBC 2.55 L Hgb 7.3 L Hct 21.9 L MCV MCH MCHC RDW 16.6 H Plt Count Lymph % (Auto) [place] % (Auto) 11.5 H Lymph # [place] # 1.1 H Baso # Seg Neutrophils % Seg Neuts % (Manual) Lymphocytes % (Manual) Monocytes % (Manual) Eosinophils % (Manual) Basophils % (Manual) Nucleated RBC % Seg Neutrophils # Seg Neutrophils # Man Lymphocytes # (Manual) Monocytes # (Manual) Eosinophils # (Manual) Basophils # (Manual) PT 16.8 H INR 1.37 H Fibrinogen dRVVT Confirm Interp Factor V Activity POC ABG pH POC ABG pCO2 POC ABG pO2 ABG pO2 ABG HCO3 ABG Base Excess ABG Hemoglobin Oxyhemoglobin Sodium Potassium 3.5 L Chloride Carbon Dioxide BUN 21 H Creatinine Glucose POC Glucose Lactic Acid Calcium 7.9 L Phosphorus Magnesium Direct Bilirubin AST ALT Alkaline Phosphatase Lactate Dehydrogenase Troponin T C-Reactive Protein Total Protein Albumin Prealbumin Triglycerides Cholesterol LDL Cholesterol Direct HDL Cholesterol Urine pH Urine WBC (Auto) Urine Creatinine Urine Total Protein Fluid Total Protein Vancomycin Trough Rheumatoid Factor Complement C4 Miscellaneous Test Crossmatch 11/17/16 11/17/16 11/17/16 06:34 11:21 21:22 WBC RBC Hgb Hct MCV MCH MCHC RDW Plt Count Lymph % (Auto) [place] % (Auto) Lymph # [place] # Baso # Seg Neutrophils % Seg Neuts % (Manual) Lymphocytes % (Manual) Monocytes % (Manual) Eosinophils % (Manual) Basophils % (Manual) Nucleated RBC % Seg Neutrophils # Seg Neutrophils # Man Lymphocytes # (Manual) Monocytes # (Manual) Eosinophils # (Manual) Basophils # (Manual) PT INR Fibrinogen dRVVT Confirm Interp Factor V Activity POC ABG pH 7.467 H POC ABG pCO2 POC ABG pO2 73 L ABG pO2 ABG HCO3 ABG Base Excess ABG Hemoglobin Oxyhemoglobin Sodium Potassium Chloride Carbon Dioxide BUN Creatinine Glucose POC Glucose 121 H 119 H Lactic Acid Calcium Phosphorus Magnesium Direct Bilirubin AST ALT Alkaline Phosphatase Lactate Dehydrogenase Troponin T C-Reactive Protein Total Protein Albumin Prealbumin Triglycerides Cholesterol LDL Cholesterol Direct HDL Cholesterol Urine pH Urine WBC (Auto) Urine Creatinine Urine Total Protein Fluid Total Protein Vancomycin Trough Rheumatoid Factor Complement C4 Miscellaneous Test Crossmatch 11/18/16 11/18/16 11/19/16 12:16 17:19 00:00 WBC RBC Hgb Hct MCV MCH MCHC RDW Plt Count Lymph % (Auto) [place] % (Auto) Lymph # [place] # Baso # Seg Neutrophils % Seg Neuts % (Manual) Lymphocytes % (Manual) Monocytes % (Manual) Eosinophils % (Manual) Basophils % (Manual) Nucleated RBC % Seg Neutrophils # Seg Neutrophils # Man Lymphocytes # (Manual) Monocytes # (Manual) Eosinophils # (Manual) Basophils # (Manual) PT INR Fibrinogen dRVVT Confirm Interp Factor V Activity POC ABG pH POC ABG pCO2 POC ABG pO2 ABG pO2 ABG HCO3 ABG Base Excess ABG Hemoglobin Oxyhemoglobin Sodium Potassium Chloride Carbon Dioxide BUN Creatinine Glucose POC Glucose 124 H 162 H 139 H Lactic Acid Calcium Phosphorus Magnesium Direct Bilirubin AST ALT Alkaline Phosphatase Lactate Dehydrogenase Troponin T C-Reactive Protein Total Protein Albumin Prealbumin Triglycerides Cholesterol LDL Cholesterol Direct HDL Cholesterol Urine pH Urine WBC (Auto) Urine Creatinine Urine Total Protein Fluid Total Protein Vancomycin Trough Rheumatoid Factor Complement C4 Miscellaneous Test Crossmatch 11/19/16 11/19/16 11/20/16 05:00 12:43 00:40 WBC RBC Hgb Hct MCV MCH MCHC RDW Plt Count Lymph % (Auto) [place] % (Auto) Lymph # [place] # Baso # Seg Neutrophils % Seg Neuts % (Manual) Lymphocytes % (Manual) Monocytes % (Manual) Eosinophils % (Manual) Basophils % (Manual) Nucleated RBC % Seg Neutrophils # Seg Neutrophils # Man Lymphocytes # (Manual) Monocytes # (Manual) Eosinophils # (Manual) Basophils # (Manual) PT INR Fibrinogen dRVVT Confirm Interp Factor V Activity POC ABG pH POC ABG pCO2 POC ABG pO2 ABG pO2 ABG HCO3 ABG Base Excess ABG Hemoglobin Oxyhemoglobin Sodium Potassium Chloride Carbon Dioxide BUN Creatinine Glucose POC Glucose 110 H 125 H 136 H Lactic Acid Calcium Phosphorus Magnesium Direct Bilirubin AST ALT Alkaline Phosphatase Lactate Dehydrogenase Troponin T C-Reactive Protein Total Protein Albumin Prealbumin Triglycerides Cholesterol LDL Cholesterol Direct HDL Cholesterol Urine pH Urine WBC (Auto) Urine Creatinine Urine Total Protein Fluid Total Protein Vancomycin Trough Rheumatoid Factor Complement C4 Miscellaneous Test Crossmatch 11/20/16 11/20/16 11/20/16 05:00 05:00 05:51 WBC 13.1 H RBC 2.74 L Hgb 7.7 L Hct 23.6 L MCV MCH MCHC RDW 16.9 H Plt Count Lymph % (Auto) [place] % (Auto) 10.8 H Lymph # [place] # 1.4 H Baso # Seg Neutrophils % Seg Neuts % (Manual) Lymphocytes % (Manual) Monocytes % (Manual) Eosinophils % (Manual) Basophils % (Manual) Nucleated RBC % Seg Neutrophils # 7.9 H Seg Neutrophils # Man Lymphocytes # (Manual) Monocytes # (Manual) Eosinophils # (Manual) Basophils # (Manual) PT INR Fibrinogen dRVVT Confirm Interp Factor V Activity POC ABG pH POC ABG pCO2 POC ABG pO2 ABG pO2 ABG HCO3 ABG Base Excess ABG Hemoglobin Oxyhemoglobin Sodium Potassium Chloride Carbon Dioxide BUN 31 H Creatinine 1.8 H Glucose 129 H POC Glucose 133 H Lactic Acid Calcium Phosphorus Magnesium Direct Bilirubin AST ALT Alkaline Phosphatase Lactate Dehydrogenase Troponin T C-Reactive Protein Total Protein Albumin Prealbumin Triglycerides Cholesterol LDL Cholesterol Direct HDL Cholesterol Urine pH Urine WBC (Auto) Urine Creatinine Urine Total Protein Fluid Total Protein Vancomycin Trough Rheumatoid Factor Complement C4 Miscellaneous Test Crossmatch 11/20/16 11/20/16 11/21/16 12:40 18:10 01:20 WBC RBC Hgb Hct MCV MCH MCHC RDW Plt Count Lymph % (Auto) [place] % (Auto) Lymph # [place] # Baso # Seg Neutrophils % Seg Neuts % (Manual) Lymphocytes % (Manual) Monocytes % (Manual) Eosinophils % (Manual) Basophils % (Manual) Nucleated RBC % Seg Neutrophils # Seg Neutrophils # Man Lymphocytes # (Manual) Monocytes # (Manual) Eosinophils # (Manual) Basophils # (Manual) PT INR Fibrinogen dRVVT Confirm Interp Factor V Activity POC ABG pH POC ABG pCO2 POC ABG pO2 ABG pO2 ABG HCO3 ABG Base Excess ABG Hemoglobin Oxyhemoglobin Sodium Potassium Chloride Carbon Dioxide BUN Creatinine Glucose POC Glucose 134 H 138 H 136 H Lactic Acid Calcium Phosphorus Magnesium Direct Bilirubin AST ALT Alkaline Phosphatase Lactate Dehydrogenase Troponin T C-Reactive Protein Total Protein Albumin Prealbumin Triglycerides Cholesterol LDL Cholesterol Direct HDL Cholesterol Urine pH Urine WBC (Auto) Urine Creatinine Urine Total Protein Fluid Total Protein Vancomycin Trough Rheumatoid Factor Complement C4 Miscellaneous Test Crossmatch 11/21/16 11/21/16 11/21/16 07:04 07:45 07:45 WBC 22.0 H RBC 2.91 L Hgb 8.2 L Hct 25.4 L MCV MCH MCHC RDW 17.1 H Plt Count Lymph % (Auto) [place] % (Auto) Lymph # [place] # Baso # Seg Neutrophils % Seg Neuts % (Manual) Lymphocytes % (Manual) 8.0 L Monocytes % (Manual) Eosinophils % (Manual) Basophils % (Manual) Nucleated RBC % Seg Neutrophils # Seg Neutrophils # Man 14.7 H Lymphocytes # (Manual) Monocytes # (Manual) 1.1 H Eosinophils # (Manual) Basophils # (Manual) PT INR Fibrinogen dRVVT Confirm Interp Factor V Activity POC ABG pH POC ABG pCO2 POC ABG pO2 ABG pO2 ABG HCO3 ABG Base Excess ABG Hemoglobin Oxyhemoglobin Sodium Potassium Chloride Carbon Dioxide BUN 42 H Creatinine 2.0 H Glucose POC Glucose 108 H Lactic Acid Calcium Phosphorus Magnesium Direct Bilirubin AST ALT Alkaline Phosphatase Lactate Dehydrogenase Troponin T C-Reactive Protein Total Protein Albumin Prealbumin Triglycerides Cholesterol LDL Cholesterol Direct HDL Cholesterol Urine pH Urine WBC (Auto) Urine Creatinine Urine Total Protein Fluid Total Protein Vancomycin Trough Rheumatoid Factor Complement C4 Miscellaneous Test Crossmatch 11/21/16 11/21/16 11/21/16 08:38 10:09 11:20 WBC RBC Hgb Hct MCV MCH MCHC RDW Plt Count Lymph % (Auto) [place] % (Auto) Lymph # [place] # Baso # Seg Neutrophils % Seg Neuts % (Manual) Lymphocytes % (Manual) Monocytes % (Manual) Eosinophils % (Manual) Basophils % (Manual) Nucleated RBC % Seg Neutrophils # Seg Neutrophils # Man Lymphocytes # (Manual) Monocytes # (Manual) Eosinophils # (Manual) Basophils # (Manual) PT INR Fibrinogen dRVVT Confirm Interp Factor V Activity POC ABG pH 7.346 L POC ABG pCO2 34.4 L POC ABG pO2 314 H ABG pO2 ABG HCO3 ABG Base Excess ABG Hemoglobin Oxyhemoglobin Sodium Potassium Chloride Carbon Dioxide BUN Creatinine Glucose POC Glucose 195 H 153 H Lactic Acid Calcium Phosphorus Magnesium Direct Bilirubin AST ALT Alkaline Phosphatase Lactate Dehydrogenase Troponin T C-Reactive Protein Total Protein Albumin Prealbumin Triglycerides Cholesterol LDL Cholesterol Direct HDL Cholesterol Urine pH Urine WBC (Auto) Urine Creatinine Urine Total Protein Fluid Total Protein Vancomycin Trough Rheumatoid Factor Complement C4 Miscellaneous Test Crossmatch 11/21/16 11/22/16 11/22/16 23:37 04:48 05:00 WBC 29.7 H RBC 2.73 L Hgb 7.5 L Hct 24.2 L MCV MCH 27 L MCHC RDW 17.4 H Plt Count Lymph % (Auto) [place] % (Auto) Lymph # [place] # Baso # Seg Neutrophils % Seg Neuts % (Manual) Lymphocytes % (Manual) 7.0 L Monocytes % (Manual) Eosinophils % (Manual) Basophils % (Manual) Nucleated RBC % Seg Neutrophils # Seg Neutrophils # Man 15.4 H Lymphocytes # (Manual) Monocytes # (Manual) Eosinophils # (Manual) Basophils # (Manual) PT INR Fibrinogen dRVVT Confirm Interp Factor V Activity POC ABG pH POC ABG pCO2 24.6 L POC ABG pO2 189 H ABG pO2 ABG HCO3 ABG Base Excess ABG Hemoglobin Oxyhemoglobin Sodium Potassium Chloride Carbon Dioxide BUN Creatinine Glucose POC Glucose 65 L Lactic Acid Calcium Phosphorus Magnesium Direct Bilirubin AST ALT Alkaline Phosphatase Lactate Dehydrogenase Troponin T C-Reactive Protein Total Protein Albumin Prealbumin Triglycerides Cholesterol LDL Cholesterol Direct HDL Cholesterol Urine pH Urine WBC (Auto) Urine Creatinine Urine Total Protein Fluid Total Protein Vancomycin Trough Rheumatoid Factor Complement C4 Miscellaneous Test Crossmatch 11/22/16 11/23/16 11/23/16 05:00 03:44 04:06 WBC RBC 2.52 L Hgb 7.2 L Hct 21.5 L MCV MCH MCHC RDW 17.1 H Plt Count Lymph % (Auto) [place] % (Auto) 12.4 H Lymph # [place] # 1.4 H Baso # Seg Neutrophils % Seg Neuts % (Manual) Lymphocytes % (Manual) Monocytes % (Manual) Eosinophils % (Manual) Basophils % (Manual) Nucleated RBC % Seg Neutrophils # Seg Neutrophils # Man Lymphocytes # (Manual) Monocytes # (Manual) Eosinophils # (Manual) Basophils # (Manual) PT INR Fibrinogen dRVVT Confirm Interp Factor V Activity POC ABG pH 7.493 H POC ABG pCO2 29.5 L POC ABG pO2 49 L ABG pO2 ABG HCO3 ABG Base Excess ABG Hemoglobin Oxyhemoglobin Sodium 134 L Potassium Chloride 95.9 L Carbon Dioxide 14 L D BUN 51 H Creatinine 2.6 H Glucose POC Glucose Lactic Acid Calcium Phosphorus Magnesium Direct Bilirubin AST ALT Alkaline Phosphatase Lactate Dehydrogenase Troponin T C-Reactive Protein Total Protein Albumin Prealbumin Triglycerides Cholesterol LDL Cholesterol Direct HDL Cholesterol Urine pH Urine WBC (Auto) Urine Creatinine Urine Total Protein Fluid Total Protein Vancomycin Trough Rheumatoid Factor Complement C4 Miscellaneous Test Crossmatch 11/23/16 11/23/16 11/24/16 04:06 11:29 06:39 WBC RBC Hgb Hct MCV MCH MCHC RDW Plt Count Lymph % (Auto) [place] % (Auto) Lymph # [place] # Baso # Seg Neutrophils % Seg Neuts % (Manual) Lymphocytes % (Manual) Monocytes % (Manual) Eosinophils % (Manual) Basophils % (Manual) Nucleated RBC % Seg Neutrophils # Seg Neutrophils # Man Lymphocytes # (Manual) Monocytes # (Manual) Eosinophils # (Manual) Basophils # (Manual) PT INR Fibrinogen dRVVT Confirm Interp Factor V Activity POC ABG pH POC ABG pCO2 POC ABG pO2 ABG pO2 ABG HCO3 ABG Base Excess ABG Hemoglobin Oxyhemoglobin Sodium 136 L Potassium Chloride 95.2 L Carbon Dioxide BUN 60 H Creatinine 2.9 H Glucose POC Glucose 69 L 305 H Lactic Acid Calcium Phosphorus Magnesium 1.60 L Direct Bilirubin AST ALT Alkaline Phosphatase Lactate Dehydrogenase Troponin T C-Reactive Protein Total Protein Albumin Prealbumin Triglycerides Cholesterol LDL Cholesterol Direct HDL Cholesterol Urine pH Urine WBC (Auto) Urine Creatinine Urine Total Protein Fluid Total Protein Vancomycin Trough Rheumatoid Factor Complement C4 Miscellaneous Test Crossmatch 11/24/16 11/24/16 11/24/16 06:43 08:08 08:08 WBC 11.2 H RBC 2.47 L Hgb 6.8 L Hct 20.6 L MCV MCH MCHC RDW 17.0 H Plt Count Lymph % (Auto) [place] % (Auto) 10.3 H Lymph # [place] # 1.2 H Baso # Seg Neutrophils % Seg Neuts % (Manual) Lymphocytes % (Manual) Monocytes % (Manual) Eosinophils % (Manual) Basophils % (Manual) Nucleated RBC % Seg Neutrophils # Seg Neutrophils # Man Lymphocytes # (Manual) Monocytes # (Manual) Eosinophils # (Manual) Basophils # (Manual) PT INR Fibrinogen dRVVT Confirm Interp Factor V Activity POC ABG pH POC ABG pCO2 POC ABG pO2 ABG pO2 ABG HCO3 ABG Base Excess ABG Hemoglobin Oxyhemoglobin Sodium 135 L Potassium Chloride 96.3 L Carbon Dioxide BUN 61 H Creatinine 3.1 H Glucose POC Glucose 62 L Lactic Acid Calcium 8.2 L Phosphorus Magnesium Direct Bilirubin AST ALT Alkaline Phosphatase Lactate Dehydrogenase Troponin T C-Reactive Protein Total Protein Albumin Prealbumin Triglycerides Cholesterol LDL Cholesterol Direct HDL Cholesterol Urine pH Urine WBC (Auto) Urine Creatinine Urine Total Protein Fluid Total Protein Vancomycin Trough Rheumatoid Factor Complement C4 Miscellaneous Test Crossmatch 11/24/16 11/24/16 11/24/16 08:34 11:20 12:41 WBC RBC Hgb Hct MCV MCH MCHC RDW Plt Count Lymph % (Auto) [place] % (Auto) Lymph # [place] # Baso # Seg Neutrophils % Seg Neuts % (Manual) Lymphocytes % (Manual) Monocytes % (Manual) Eosinophils % (Manual) Basophils % (Manual) Nucleated RBC % Seg Neutrophils # Seg Neutrophils # Man Lymphocytes # (Manual) Monocytes # (Manual) Eosinophils # (Manual) Basophils # (Manual) PT INR Fibrinogen dRVVT Confirm Interp Factor V Activity POC ABG pH POC ABG pCO2 POC ABG pO2 ABG pO2 ABG HCO3 ABG Base Excess ABG Hemoglobin Oxyhemoglobin Sodium Potassium Chloride Carbon Dioxide BUN Creatinine Glucose POC Glucose 108 H Lactic Acid Calcium Phosphorus Magnesium 1.60 L Direct Bilirubin AST ALT Alkaline Phosphatase Lactate Dehydrogenase Troponin T C-Reactive Protein Total Protein Albumin Prealbumin Triglycerides Cholesterol LDL Cholesterol Direct HDL Cholesterol Urine pH Urine WBC (Auto) Urine Creatinine Urine Total Protein Fluid Total Protein Vancomycin Trough Rheumatoid Factor Complement C4 Miscellaneous Test Crossmatch See Detail 11/25/16 11/25/16 11/25/16 00:03 04:42 04:42 WBC RBC 3.03 L Hgb 8.6 L Hct 25.3 L MCV MCH MCHC RDW 16.2 H Plt Count Lymph % (Auto) [place] % (Auto) 8.1 H Lymph # [place] # Baso # Seg Neutrophils % 71.3 H Seg Neuts % (Manual) Lymphocytes % (Manual) Monocytes % (Manual) Eosinophils % (Manual) Basophils % (Manual) Nucleated RBC % Seg Neutrophils # Seg Neutrophils # Man Lymphocytes # (Manual) Monocytes # (Manual) Eosinophils # (Manual) Basophils # (Manual) PT INR Fibrinogen dRVVT Confirm Interp Factor V Activity POC ABG pH POC ABG pCO2 POC ABG pO2 ABG pO2 ABG HCO3 ABG Base Excess ABG Hemoglobin Oxyhemoglobin Sodium Potassium Chloride Carbon Dioxide BUN 61 H Creatinine 3.0 H Glucose 102 H POC Glucose 113 H Lactic Acid Calcium 8.2 L Phosphorus Magnesium Direct Bilirubin AST ALT Alkaline Phosphatase 142 H Lactate Dehydrogenase Troponin T C-Reactive Protein Total Protein 5.7 L Albumin 1.5 L Prealbumin Triglycerides Cholesterol LDL Cholesterol Direct HDL Cholesterol Urine pH Urine WBC (Auto) Urine Creatinine Urine Total Protein Fluid Total Protein Vancomycin Trough Rheumatoid Factor Complement C4 Miscellaneous Test Crossmatch 11/25/16 11/25/16 11/25/16 05:12 11:31 14:12 WBC RBC Hgb Hct MCV MCH MCHC RDW Plt Count Lymph % (Auto) [place] % (Auto) Lymph # [place] # Baso # Seg Neutrophils % Seg Neuts % (Manual) Lymphocytes % (Manual) Monocytes % (Manual) Eosinophils % (Manual) Basophils % (Manual) Nucleated RBC % Seg Neutrophils # Seg Neutrophils # Man Lymphocytes # (Manual) Monocytes # (Manual) Eosinophils # (Manual) Basophils # (Manual) PT INR Fibrinogen dRVVT Confirm Interp Factor V Activity POC ABG pH 7.487 H POC ABG pCO2 POC ABG pO2 153 H ABG pO2 ABG HCO3 ABG Base Excess ABG Hemoglobin Oxyhemoglobin Sodium Potassium Chloride Carbon Dioxide BUN Creatinine Glucose POC Glucose 131 H 140 H Lactic Acid Calcium Phosphorus Magnesium Direct Bilirubin AST ALT Alkaline Phosphatase Lactate Dehydrogenase Troponin T C-Reactive Protein Total Protein Albumin Prealbumin Triglycerides Cholesterol LDL Cholesterol Direct HDL Cholesterol Urine pH Urine WBC (Auto) Urine Creatinine Urine Total Protein Fluid Total Protein Vancomycin Trough Rheumatoid Factor Complement C4 Miscellaneous Test Crossmatch 10/06/17 10/07/17 10/07/17 17:23 00:09 05:13 WBC RBC 2.94 L Hgb 8.4 L Hct 24.6 L MCV MCH MCHC RDW 16.4 H Plt Count Lymph % (Auto) [place] % (Auto) 12.3 H Lymph # [place] # 1.1 H Baso # Seg Neutrophils % Seg Neuts % (Manual) Lymphocytes % (Manual) Monocytes % (Manual) Eosinophils % (Manual) Basophils % (Manual) Nucleated RBC % Seg Neutrophils # Seg Neutrophils # Man Lymphocytes # (Manual) Monocytes # (Manual) Eosinophils # (Manual) Basophils # (Manual) PT INR Fibrinogen dRVVT Confirm Interp Factor V Activity POC ABG pH POC ABG pCO2 POC ABG pO2 ABG pO2 ABG HCO3 ABG Base Excess ABG Hemoglobin Oxyhemoglobin Sodium Potassium Chloride Carbon Dioxide BUN Creatinine Glucose POC Glucose 146 H 112 H Lactic Acid Calcium Phosphorus Magnesium Direct Bilirubin AST ALT Alkaline Phosphatase Lactate Dehydrogenase Troponin T C-Reactive Protein Total Protein Albumin Prealbumin Triglycerides Cholesterol LDL Cholesterol Direct HDL Cholesterol Urine pH Urine WBC (Auto) Urine Creatinine Urine Total Protein Fluid Total Protein Vancomycin Trough Rheumatoid Factor Complement C4 Miscellaneous Test Crossmatch 11/26/16 11/26/16 11/26/16 05:13 05:28 11:53 WBC RBC Hgb Hct MCV MCH MCHC RDW Plt Count Lymph % (Auto) [place] % (Auto) Lymph # [place] # Baso # Seg Neutrophils % Seg Neuts % (Manual) Lymphocytes % (Manual) Monocytes % (Manual) Eosinophils % (Manual) Basophils % (Manual) Nucleated RBC % Seg Neutrophils # Seg Neutrophils # Man Lymphocytes # (Manual) Monocytes # (Manual) Eosinophils # (Manual) Basophils # (Manual) PT INR Fibrinogen dRVVT Confirm Interp Factor V Activity POC ABG pH POC ABG pCO2 POC ABG pO2 ABG pO2 ABG HCO3 ABG Base Excess ABG Hemoglobin Oxyhemoglobin Sodium Potassium Chloride 97.8 L Carbon Dioxide BUN 37 H Creatinine 2.0 H Glucose 109 H POC Glucose 117 H 111 H Lactic Acid Calcium 7.9 L Phosphorus 1.80 L D Magnesium Direct Bilirubin AST ALT Alkaline Phosphatase Lactate Dehydrogenase Troponin T C-Reactive Protein Total Protein Albumin Prealbumin Triglycerides Cholesterol LDL Cholesterol Direct HDL Cholesterol Urine pH Urine WBC (Auto) Urine Creatinine Urine Total Protein Fluid Total Protein Vancomycin Trough Rheumatoid Factor Complement C4 Miscellaneous Test Crossmatch 11/26/16 11/27/16 11/27/16 17:14 04:50 06:02 WBC RBC Hgb Hct MCV MCH MCHC RDW Plt Count Lymph % (Auto) [place] % (Auto) Lymph # [place] # Baso # Seg Neutrophils % Seg Neuts % (Manual) Lymphocytes % (Manual) Monocytes % (Manual) Eosinophils % (Manual) Basophils % (Manual) Nucleated RBC % Seg Neutrophils # Seg Neutrophils # Man Lymphocytes # (Manual) Monocytes # (Manual) Eosinophils # (Manual) Basophils # (Manual) PT INR Fibrinogen dRVVT Confirm Interp Factor V Activity POC ABG pH POC ABG pCO2 POC ABG pO2 ABG pO2 75.2 L ABG HCO3 26.4 H ABG Base Excess ABG Hemoglobin 7.6 L Oxyhemoglobin 94.8 L Sodium Potassium Chloride Carbon Dioxide BUN 49 H Creatinine 2.3 H Glucose POC Glucose 115 H Lactic Acid Calcium Phosphorus 1.50 L Magnesium Direct Bilirubin AST ALT Alkaline Phosphatase Lactate Dehydrogenase Troponin T C-Reactive Protein Total Protein Albumin Prealbumin Triglycerides Cholesterol LDL Cholesterol Direct HDL Cholesterol Urine pH Urine WBC (Auto) Urine Creatinine Urine Total Protein Fluid Total Protein Vancomycin Trough Rheumatoid Factor Complement C4 Miscellaneous Test Crossmatch 11/27/16 11/27/16 11/27/16 06:02 11:25 17:25 WBC 11.6 H RBC 2.75 L Hgb 7.6 L Hct 23.4 L MCV MCH MCHC RDW 16.5 H Plt Count Lymph % (Auto) [place] % (Auto) Lymph # [place] # Baso # Seg Neutrophils % Seg Neuts % (Manual) Lymphocytes % (Manual) Monocytes % (Manual) Eosinophils % (Manual) Basophils % (Manual) Nucleated RBC % Seg Neutrophils # Seg Neutrophils # Man Lymphocytes # (Manual) Monocytes # (Manual) Eosinophils # (Manual) Basophils # (Manual) PT INR Fibrinogen dRVVT Confirm Interp Factor V Activity POC ABG pH POC ABG pCO2 POC ABG pO2 ABG pO2 ABG HCO3 ABG Base Excess ABG Hemoglobin Oxyhemoglobin Sodium Potassium Chloride Carbon Dioxide BUN Creatinine Glucose POC Glucose 114 H 126 H Lactic Acid Calcium Phosphorus Magnesium Direct Bilirubin AST ALT Alkaline Phosphatase Lactate Dehydrogenase Troponin T C-Reactive Protein Total Protein Albumin Prealbumin Triglycerides Cholesterol LDL Cholesterol Direct HDL Cholesterol Urine pH Urine WBC (Auto) Urine Creatinine Urine Total Protein Fluid Total Protein Vancomycin Trough Rheumatoid Factor Complement C4 Miscellaneous Test Crossmatch 11/28/16 11/28/16 11/28/16 04:45 05:33 05:44 WBC RBC Hgb Hct MCV MCH MCHC RDW Plt Count Lymph % (Auto) [place] % (Auto) Lymph # [place] # Baso # Seg Neutrophils % Seg Neuts % (Manual) Lymphocytes % (Manual) Monocytes % (Manual) Eosinophils % (Manual) Basophils % (Manual) Nucleated RBC % Seg Neutrophils # Seg Neutrophils # Man Lymphocytes # (Manual) Monocytes # (Manual) Eosinophils # (Manual) Basophils # (Manual) PT INR Fibrinogen dRVVT Confirm Interp Factor V Activity POC ABG pH POC ABG pCO2 POC ABG pO2 ABG pO2 99.3 H ABG HCO3 ABG Base Excess ABG Hemoglobin 8.3 L Oxyhemoglobin Sodium Potassium Chloride Carbon Dioxide BUN 63 H Creatinine 2.4 H Glucose 102 H POC Glucose 108 H Lactic Acid Calcium Phosphorus 1.80 L Magnesium Direct Bilirubin AST ALT Alkaline Phosphatase Lactate Dehydrogenase Troponin T C-Reactive Protein Total Protein Albumin Prealbumin Triglycerides Cholesterol LDL Cholesterol Direct HDL Cholesterol Urine pH Urine WBC (Auto) Urine Creatinine Urine Total Protein Fluid Total Protein Vancomycin Trough Rheumatoid Factor Complement C4 Miscellaneous Test Crossmatch 11/28/16 11/28/16 11/28/16 12:31 16:09 23:46 WBC RBC Hgb Hct MCV MCH MCHC RDW Plt Count Lymph % (Auto) [place] % (Auto) Lymph # [place] # Baso # Seg Neutrophils % Seg Neuts % (Manual) Lymphocytes % (Manual) Monocytes % (Manual) Eosinophils % (Manual) Basophils % (Manual) Nucleated RBC % Seg Neutrophils # Seg Neutrophils # Man Lymphocytes # (Manual) Monocytes # (Manual) Eosinophils # (Manual) Basophils # (Manual) PT INR Fibrinogen dRVVT Confirm Interp Factor V Activity POC ABG pH POC ABG pCO2 POC ABG pO2 ABG pO2 ABG HCO3 ABG Base Excess ABG Hemoglobin Oxyhemoglobin Sodium Potassium Chloride Carbon Dioxide BUN Creatinine Glucose POC Glucose 126 H 111 H 119 H Lactic Acid Calcium Phosphorus Magnesium Direct Bilirubin AST ALT Alkaline Phosphatase Lactate Dehydrogenase Troponin T C-Reactive Protein Total Protein Albumin Prealbumin Triglycerides Cholesterol LDL Cholesterol Direct HDL Cholesterol Urine pH Urine WBC (Auto) Urine Creatinine Urine Total Protein Fluid Total Protein Vancomycin Trough Rheumatoid Factor Complement C4 Miscellaneous Test Crossmatch 11/29/16 11/29/16 11/29/16 03:33 04:52 05:10 WBC RBC Hgb Hct MCV MCH MCHC RDW Plt Count Lymph % (Auto) [place] % (Auto) Lymph # [place] # Baso # Seg Neutrophils % Seg Neuts % (Manual) Lymphocytes % (Manual) Monocytes % (Manual) Eosinophils % (Manual) Basophils % (Manual) Nucleated RBC % Seg Neutrophils # Seg Neutrophils # Man Lymphocytes # (Manual) Monocytes # (Manual) Eosinophils # (Manual) Basophils # (Manual) PT INR Fibrinogen dRVVT Confirm Interp Factor V Activity POC ABG pH POC ABG pCO2 POC ABG pO2 ABG pO2 ABG HCO3 ABG Base Excess ABG Hemoglobin 7.0 L Oxyhemoglobin 94.9 L Sodium Potassium Chloride Carbon Dioxide BUN 73 H Creatinine 2.7 H Glucose POC Glucose 108 H Lactic Acid Calcium Phosphorus Magnesium Direct Bilirubin AST ALT Alkaline Phosphatase Lactate Dehydrogenase Troponin T C-Reactive Protein Total Protein Albumin Prealbumin Triglycerides Cholesterol LDL Cholesterol Direct HDL Cholesterol Urine pH Urine WBC (Auto) Urine Creatinine Urine Total Protein Fluid Total Protein Vancomycin Trough Rheumatoid Factor Complement C4 Miscellaneous Test Crossmatch 11/29/16 11/29/16 11/29/16 12:16 18:05 23:46 WBC RBC Hgb Hct MCV MCH MCHC RDW Plt Count Lymph % (Auto) [place] % (Auto) Lymph # [place] # Baso # Seg Neutrophils % Seg Neuts % (Manual) Lymphocytes % (Manual) Monocytes % (Manual) Eosinophils % (Manual) Basophils % (Manual) Nucleated RBC % Seg Neutrophils # Seg Neutrophils # Man Lymphocytes # (Manual) Monocytes # (Manual) Eosinophils # (Manual) Basophils # (Manual) PT INR Fibrinogen dRVVT Confirm Interp Factor V Activity POC ABG pH POC ABG pCO2 POC ABG pO2 ABG pO2 ABG HCO3 ABG Base Excess ABG Hemoglobin Oxyhemoglobin Sodium Potassium Chloride Carbon Dioxide BUN Creatinine Glucose POC Glucose 133 H 146 H 141 H Lactic Acid Calcium Phosphorus Magnesium Direct Bilirubin AST ALT Alkaline Phosphatase Lactate Dehydrogenase Troponin T C-Reactive Protein Total Protein Albumin Prealbumin Triglycerides Cholesterol LDL Cholesterol Direct HDL Cholesterol Urine pH Urine WBC (Auto) Urine Creatinine Urine Total Protein Fluid Total Protein Vancomycin Trough Rheumatoid Factor Complement C4 Miscellaneous Test Crossmatch 11/30/16 11/30/16 11/30/16 04:17 04:17 04:32 WBC 12.0 H RBC 2.80 L Hgb 7.8 L Hct 23.6 L MCV MCH MCHC RDW 16.6 H Plt Count Lymph % (Auto) [place] % (Auto) 11.3 H Lymph # [place] # 1.4 H Baso # Seg Neutrophils % Seg Neuts % (Manual) Lymphocytes % (Manual) Monocytes % (Manual) Eosinophils % (Manual) Basophils % (Manual) Nucleated RBC % Seg Neutrophils # 8.2 H Seg Neutrophils # Man Lymphocytes # (Manual) Monocytes # (Manual) Eosinophils # (Manual) Basophils # (Manual) PT INR Fibrinogen dRVVT Confirm Interp Factor V Activity POC ABG pH POC ABG pCO2 POC ABG pO2 ABG pO2 ABG HCO3 ABG Base Excess ABG Hemoglobin Oxyhemoglobin Sodium 169 H* D Potassium 5.1 H Chloride 121.5 H Carbon Dioxide BUN 34 H Creatinine 1.3 H D Glucose 133 H POC Glucose 131 H Lactic Acid Calcium 10.3 H Phosphorus Magnesium Direct Bilirubin AST ALT Alkaline Phosphatase Lactate Dehydrogenase Troponin T C-Reactive Protein Total Protein Albumin Prealbumin Triglycerides Cholesterol LDL Cholesterol Direct HDL Cholesterol Urine pH Urine WBC (Auto) Urine Creatinine Urine Total Protein Fluid Total Protein Vancomycin Trough Rheumatoid Factor Complement C4 Miscellaneous Test Crossmatch 11/30/16 11/30/16 11/30/16 05:45 11:10 17:26 WBC RBC Hgb Hct MCV MCH MCHC RDW Plt Count Lymph % (Auto) [place] % (Auto) Lymph # [place] # Baso # Seg Neutrophils % Seg Neuts % (Manual) Lymphocytes % (Manual) Monocytes % (Manual) Eosinophils % (Manual) Basophils % (Manual) Nucleated RBC % Seg Neutrophils # Seg Neutrophils # Man Lymphocytes # (Manual) Monocytes # (Manual) Eosinophils # (Manual) Basophils # (Manual) PT INR Fibrinogen dRVVT Confirm Interp Factor V Activity POC ABG pH POC ABG pCO2 POC ABG pO2 ABG pO2 ABG HCO3 ABG Base Excess ABG Hemoglobin Oxyhemoglobin Sodium Potassium Chloride Carbon Dioxide BUN 45 H Creatinine 1.6 H Glucose 131 H POC Glucose 146 H 134 H Lactic Acid Calcium Phosphorus Magnesium Direct Bilirubin AST ALT Alkaline Phosphatase Lactate Dehydrogenase Troponin T C-Reactive Protein Total Protein Albumin Prealbumin Triglycerides Cholesterol LDL Cholesterol Direct HDL Cholesterol Urine pH Urine WBC (Auto) Urine Creatinine Urine Total Protein Fluid Total Protein Vancomycin Trough Rheumatoid Factor Complement C4 Miscellaneous Test Crossmatch 11/30/16 12/01/16 12/01/16 23:35 00:06 03:35 WBC RBC Hgb Hct MCV MCH MCHC RDW Plt Count Lymph % (Auto) [place] % (Auto) Lymph # [place] # Baso # Seg Neutrophils % Seg Neuts % (Manual) Lymphocytes % (Manual) Monocytes % (Manual) Eosinophils % (Manual) Basophils % (Manual) Nucleated RBC % Seg Neutrophils # Seg Neutrophils # Man Lymphocytes # (Manual) Monocytes # (Manual) Eosinophils # (Manual) Basophils # (Manual) PT INR Fibrinogen dRVVT Confirm Interp Factor V Activity POC ABG pH POC ABG pCO2 POC ABG pO2 ABG pO2 ABG HCO3 ABG Base Excess ABG Hemoglobin 6.9 L Oxyhemoglobin Sodium Potassium Chloride Carbon Dioxide BUN 58 H Creatinine 1.8 H Glucose 146 H POC Glucose 151 H Lactic Acid Calcium Phosphorus Magnesium Direct Bilirubin AST ALT Alkaline Phosphatase Lactate Dehydrogenase Troponin T C-Reactive Protein Total Protein Albumin Prealbumin Triglycerides Cholesterol LDL Cholesterol Direct HDL Cholesterol Urine pH Urine WBC (Auto) Urine Creatinine Urine Total Protein Fluid Total Protein Vancomycin Trough Rheumatoid Factor Complement C4 Miscellaneous Test Crossmatch 12/01/16 12/01/16 12/01/16 03:35 05:47 11:52 WBC 12.3 H RBC 2.82 L Hgb 7.8 L Hct 23.7 L MCV MCH MCHC RDW 16.7 H Plt Count Lymph % (Auto) [place] % (Auto) 9.8 H Lymph # [place] # 1.2 H Baso # Seg Neutrophils % Seg Neuts % (Manual) Lymphocytes % (Manual) Monocytes % (Manual) Eosinophils % (Manual) Basophils % (Manual) Nucleated RBC % Seg Neutrophils # 8.4 H Seg Neutrophils # Man Lymphocytes # (Manual) Monocytes # (Manual) Eosinophils # (Manual) Basophils # (Manual) PT INR Fibrinogen dRVVT Confirm Interp Factor V Activity POC ABG pH POC ABG pCO2 POC ABG pO2 ABG pO2 ABG HCO3 ABG Base Excess ABG Hemoglobin Oxyhemoglobin Sodium Potassium Chloride Carbon Dioxide BUN Creatinine Glucose POC Glucose 152 H 152 H Lactic Acid Calcium Phosphorus Magnesium Direct Bilirubin AST ALT Alkaline Phosphatase Lactate Dehydrogenase Troponin T C-Reactive Protein Total Protein Albumin Prealbumin Triglycerides Cholesterol LDL Cholesterol Direct HDL Cholesterol Urine pH Urine WBC (Auto) Urine Creatinine Urine Total Protein Fluid Total Protein Vancomycin Trough Rheumatoid Factor Complement C4 Miscellaneous Test Crossmatch 12/01/16 12/01/16 12/02/16 17:40 23:41 05:00 WBC RBC Hgb Hct MCV MCH MCHC RDW Plt Count Lymph % (Auto) [place] % (Auto) Lymph # [place] # Baso # Seg Neutrophils % Seg Neuts % (Manual) Lymphocytes % (Manual) Monocytes % (Manual) Eosinophils % (Manual) Basophils % (Manual) Nucleated RBC % Seg Neutrophils # Seg Neutrophils # Man Lymphocytes # (Manual) Monocytes # (Manual) Eosinophils # (Manual) Basophils # (Manual) PT INR Fibrinogen dRVVT Confirm Interp Factor V Activity POC ABG pH POC ABG pCO2 POC ABG pO2 ABG pO2 ABG HCO3 ABG Base Excess ABG Hemoglobin Oxyhemoglobin Sodium Potassium Chloride Carbon Dioxide BUN 45 H Creatinine Glucose 115 H POC Glucose 140 H 144 H Lactic Acid Calcium Phosphorus Magnesium Direct Bilirubin AST ALT Alkaline Phosphatase Lactate Dehydrogenase Troponin T C-Reactive Protein Total Protein Albumin Prealbumin Triglycerides Cholesterol LDL Cholesterol Direct HDL Cholesterol Urine pH Urine WBC (Auto) Urine Creatinine Urine Total Protein Fluid Total Protein Vancomycin Trough Rheumatoid Factor Complement C4 Miscellaneous Test Crossmatch 12/02/16 12/02/16 12/02/16 05:31 11:20 17:38 WBC RBC Hgb Hct MCV MCH MCHC RDW Plt Count Lymph % (Auto) [place] % (Auto) Lymph # [place] # Baso # Seg Neutrophils % Seg Neuts % (Manual) Lymphocytes % (Manual) Monocytes % (Manual) Eosinophils % (Manual) Basophils % (Manual) Nucleated RBC % Seg Neutrophils # Seg Neutrophils # Man Lymphocytes # (Manual) Monocytes # (Manual) Eosinophils # (Manual) Basophils # (Manual) PT INR Fibrinogen dRVVT Confirm Interp Factor V Activity POC ABG pH POC ABG pCO2 POC ABG pO2 ABG pO2 ABG HCO3 ABG Base Excess ABG Hemoglobin Oxyhemoglobin Sodium Potassium Chloride Carbon Dioxide BUN Creatinine Glucose POC Glucose 136 H 177 H 139 H Lactic Acid Calcium Phosphorus Magnesium Direct Bilirubin AST ALT Alkaline Phosphatase Lactate Dehydrogenase Troponin T C-Reactive Protein Total Protein Albumin Prealbumin Triglycerides Cholesterol LDL Cholesterol Direct HDL Cholesterol Urine pH Urine WBC (Auto) Urine Creatinine Urine Total Protein Fluid Total Protein Vancomycin Trough Rheumatoid Factor Complement C4 Miscellaneous Test Crossmatch 12/02/16 12/03/16 12/03/16 23:43 04:00 04:00 WBC 20.4 H RBC 2.74 L Hgb 7.4 L Hct 23.6 L MCV MCH 27 L MCHC RDW 17.1 H Plt Count Lymph % (Auto) [place] % (Auto) Lymph # [place] # Baso # Seg Neutrophils % Seg Neuts % (Manual) 31.0 L Lymphocytes % (Manual) Monocytes % (Manual) Eosinophils % (Manual) Basophils % (Manual) Nucleated RBC % Seg Neutrophils # Seg Neutrophils # Man Lymphocytes # (Manual) Monocytes # (Manual) Eosinophils # (Manual) Basophils # (Manual) PT INR Fibrinogen dRVVT Confirm Interp Factor V Activity POC ABG pH POC ABG pCO2 POC ABG pO2 ABG pO2 ABG HCO3 ABG Base Excess ABG Hemoglobin Oxyhemoglobin Sodium Potassium Chloride Carbon Dioxide BUN 61 H Creatinine 1.6 H Glucose 119 H POC Glucose 158 H Lactic Acid Calcium Phosphorus Magnesium Direct Bilirubin AST ALT Alkaline Phosphatase Lactate Dehydrogenase Troponin T C-Reactive Protein Total Protein Albumin Prealbumin Triglycerides Cholesterol LDL Cholesterol Direct HDL Cholesterol Urine pH Urine WBC (Auto) Urine Creatinine Urine Total Protein Fluid Total Protein Vancomycin Trough Rheumatoid Factor Complement C4 Miscellaneous Test Crossmatch 12/03/16 12/03/16 12/03/16 05:02 12:11 18:16 WBC RBC Hgb Hct MCV MCH MCHC RDW Plt Count Lymph % (Auto) [place] % (Auto) Lymph # [place] # Baso # Seg Neutrophils % Seg Neuts % (Manual) Lymphocytes % (Manual) Monocytes % (Manual) Eosinophils % (Manual) Basophils % (Manual) Nucleated RBC % Seg Neutrophils # Seg Neutrophils # Man Lymphocytes # (Manual) Monocytes # (Manual) Eosinophils # (Manual) Basophils # (Manual) PT INR Fibrinogen dRVVT Confirm Interp Factor V Activity POC ABG pH POC ABG pCO2 POC ABG pO2 ABG pO2 ABG HCO3 ABG Base Excess ABG Hemoglobin Oxyhemoglobin Sodium Potassium Chloride Carbon Dioxide BUN Creatinine Glucose POC Glucose 146 H 157 H 124 H Lactic Acid Calcium Phosphorus Magnesium Direct Bilirubin AST ALT Alkaline Phosphatase Lactate Dehydrogenase Troponin T C-Reactive Protein Total Protein Albumin Prealbumin Triglycerides Cholesterol LDL Cholesterol Direct HDL Cholesterol Urine pH Urine WBC (Auto) Urine Creatinine Urine Total Protein Fluid Total Protein Vancomycin Trough Rheumatoid Factor Complement C4 Miscellaneous Test Crossmatch 12/03/16 12/04/16 12/04/16 23:41 04:00 04:45 WBC RBC Hgb Hct MCV MCH MCHC RDW Plt Count Lymph % (Auto) [place] % (Auto) Lymph # [place] # Baso # Seg Neutrophils % Seg Neuts % (Manual) Lymphocytes % (Manual) Monocytes % (Manual) Eosinophils % (Manual) Basophils % (Manual) Nucleated RBC % Seg Neutrophils # Seg Neutrophils # Man Lymphocytes # (Manual) Monocytes # (Manual) Eosinophils # (Manual) Basophils # (Manual) PT INR Fibrinogen dRVVT Confirm Interp Factor V Activity POC ABG pH POC ABG pCO2 POC ABG pO2 ABG pO2 ABG HCO3 ABG Base Excess ABG Hemoglobin Oxyhemoglobin Sodium Potassium Chloride Carbon Dioxide BUN 76 H Creatinine 1.6 H Glucose POC Glucose 130 H 136 H Lactic Acid Calcium Phosphorus Magnesium Direct Bilirubin AST ALT Alkaline Phosphatase 155 H Lactate Dehydrogenase Troponin T C-Reactive Protein Total Protein 5.5 L Albumin 1.5 L Prealbumin Triglycerides Cholesterol LDL Cholesterol Direct HDL Cholesterol Urine pH Urine WBC (Auto) Urine Creatinine Urine Total Protein Fluid Total Protein Vancomycin Trough Rheumatoid Factor Complement C4 Miscellaneous Test Crossmatch 12/04/16 12/04/16 12/05/16 12:08 17:23 00:10 WBC RBC Hgb Hct MCV MCH MCHC RDW Plt Count Lymph % (Auto) [place] % (Auto) Lymph # [place] # Baso # Seg Neutrophils % Seg Neuts % (Manual) Lymphocytes % (Manual) Monocytes % (Manual) Eosinophils % (Manual) Basophils % (Manual) Nucleated RBC % Seg Neutrophils # Seg Neutrophils # Man Lymphocytes # (Manual) Monocytes # (Manual) Eosinophils # (Manual) Basophils # (Manual) PT INR Fibrinogen dRVVT Confirm Interp Factor V Activity POC ABG pH POC ABG pCO2 POC ABG pO2 ABG pO2 ABG HCO3 ABG Base Excess ABG Hemoglobin Oxyhemoglobin Sodium Potassium Chloride Carbon Dioxide BUN Creatinine Glucose POC Glucose 114 H 129 H 124 H Lactic Acid Calcium Phosphorus Magnesium Direct Bilirubin AST ALT Alkaline Phosphatase Lactate Dehydrogenase Troponin T C-Reactive Protein Total Protein Albumin Prealbumin Triglycerides Cholesterol LDL Cholesterol Direct HDL Cholesterol Urine pH Urine WBC (Auto) Urine Creatinine Urine Total Protein Fluid Total Protein Vancomycin Trough Rheumatoid Factor Complement C4 Miscellaneous Test Crossmatch 12/05/16 12/05/16 12/05/16 05:00 05:00 05:18 WBC RBC Hgb Hct MCV MCH MCHC RDW Plt Count Lymph % (Auto) [place] % (Auto) Lymph # [place] # Baso # Seg Neutrophils % Seg Neuts % (Manual) Lymphocytes % (Manual) Monocytes % (Manual) Eosinophils % (Manual) Basophils % (Manual) Nucleated RBC % Seg Neutrophils # Seg Neutrophils # Man Lymphocytes # (Manual) Monocytes # (Manual) Eosinophils # (Manual) Basophils # (Manual) PT INR Fibrinogen dRVVT Confirm Interp Factor V Activity POC ABG pH POC ABG pCO2 POC ABG pO2 ABG pO2 ABG HCO3 ABG Base Excess ABG Hemoglobin Oxyhemoglobin Sodium Potassium Chloride Carbon Dioxide 21 L BUN 85 H Creatinine 1.9 H Glucose 131 H POC Glucose 154 H Lactic Acid Calcium Phosphorus Magnesium Direct Bilirubin AST ALT Alkaline Phosphatase Lactate Dehydrogenase Troponin T C-Reactive Protein 19.30 H Total Protein Albumin Prealbumin Triglycerides Cholesterol LDL Cholesterol Direct HDL Cholesterol Urine pH Urine WBC (Auto) Urine Creatinine Urine Total Protein Fluid Total Protein Vancomycin Trough Rheumatoid Factor Complement C4 Miscellaneous Test Crossmatch 12/05/16 12/05/16 12/05/16 11:43 17:46 23:25 WBC RBC Hgb Hct MCV MCH MCHC RDW Plt Count Lymph % (Auto) [place] % (Auto) Lymph # [place] # Baso # Seg Neutrophils % Seg Neuts % (Manual) Lymphocytes % (Manual) Monocytes % (Manual) Eosinophils % (Manual) Basophils % (Manual) Nucleated RBC % Seg Neutrophils # Seg Neutrophils # Man Lymphocytes # (Manual) Monocytes # (Manual) Eosinophils # (Manual) Basophils # (Manual) PT INR Fibrinogen dRVVT Confirm Interp Factor V Activity POC ABG pH POC ABG pCO2 POC ABG pO2 ABG pO2 ABG HCO3 ABG Base Excess ABG Hemoglobin Oxyhemoglobin Sodium Potassium Chloride Carbon Dioxide BUN Creatinine Glucose POC Glucose 117 H 113 H 111 H Lactic Acid Calcium Phosphorus Magnesium Direct Bilirubin AST ALT Alkaline Phosphatase Lactate Dehydrogenase Troponin T C-Reactive Protein Total Protein Albumin Prealbumin Triglycerides Cholesterol LDL Cholesterol Direct HDL Cholesterol Urine pH Urine WBC (Auto) Urine Creatinine Urine Total Protein Fluid Total Protein Vancomycin Trough Rheumatoid Factor Complement C4 Miscellaneous Test Crossmatch 12/05/16 12/06/16 12/06/16 Unknown 04:58 06:00 WBC RBC Hgb Hct MCV MCH MCHC RDW Plt Count Lymph % (Auto) [place] % (Auto) Lymph # [place] # Baso # Seg Neutrophils % Seg Neuts % (Manual) Lymphocytes % (Manual) Monocytes % (Manual) Eosinophils % (Manual) Basophils % (Manual) Nucleated RBC % Seg Neutrophils # Seg Neutrophils # Man Lymphocytes # (Manual) Monocytes # (Manual) Eosinophils # (Manual) Basophils # (Manual) PT INR Fibrinogen dRVVT Confirm Interp Factor V Activity POC ABG pH POC ABG pCO2 POC ABG pO2 ABG pO2 75.2 L ABG HCO3 ABG Base Excess -3.4 L ABG Hemoglobin 7.4 L Oxyhemoglobin 94.5 L Sodium Potassium Chloride Carbon Dioxide 20 L BUN 99 H Creatinine 2.1 H Glucose 126 H POC Glucose 145 H Lactic Acid Calcium Phosphorus 4.80 H Magnesium Direct Bilirubin AST ALT Alkaline Phosphatase Lactate Dehydrogenase Troponin T C-Reactive Protein Total Protein Albumin Prealbumin Triglycerides Cholesterol LDL Cholesterol Direct HDL Cholesterol Urine pH Urine WBC (Auto) Urine Creatinine Urine Total Protein Fluid Total Protein Vancomycin Trough Rheumatoid Factor Complement C4 Miscellaneous Test Crossmatch 12/06/16 12/06/16 12/06/16 06:46 11:54 17:55 WBC RBC Hgb 8.3 L Hct 26.4 L MCV MCH MCHC RDW Plt Count Lymph % (Auto) [place] % (Auto) Lymph # [place] # Baso # Seg Neutrophils % Seg Neuts % (Manual) Lymphocytes % (Manual) Monocytes % (Manual) Eosinophils % (Manual) Basophils % (Manual) Nucleated RBC % Seg Neutrophils # Seg Neutrophils # Man Lymphocytes # (Manual) Monocytes # (Manual) Eosinophils # (Manual) Basophils # (Manual) PT INR Fibrinogen dRVVT Confirm Interp Factor V Activity POC ABG pH POC ABG pCO2 POC ABG pO2 ABG pO2 ABG HCO3 ABG Base Excess ABG Hemoglobin Oxyhemoglobin Sodium Potassium Chloride Carbon Dioxide BUN Creatinine Glucose POC Glucose 126 H 157 H Lactic Acid Calcium Phosphorus Magnesium Direct Bilirubin AST ALT Alkaline Phosphatase Lactate Dehydrogenase Troponin T C-Reactive Protein Total Protein Albumin Prealbumin Triglycerides Cholesterol LDL Cholesterol Direct HDL Cholesterol Urine pH Urine WBC (Auto) Urine Creatinine Urine Total Protein Fluid Total Protein Vancomycin Trough Rheumatoid Factor Complement C4 Miscellaneous Test Crossmatch 12/06/16 12/07/16 12/07/16 23:59 05:34 06:30 WBC RBC Hgb Hct MCV MCH MCHC RDW Plt Count Lymph % (Auto) [place] % (Auto) Lymph # [place] # Baso # Seg Neutrophils % Seg Neuts % (Manual) Lymphocytes % (Manual) Monocytes % (Manual) Eosinophils % (Manual) Basophils % (Manual) Nucleated RBC % Seg Neutrophils # Seg Neutrophils # Man Lymphocytes # (Manual) Monocytes # (Manual) Eosinophils # (Manual) Basophils # (Manual) PT INR Fibrinogen dRVVT Confirm Interp Factor V Activity POC ABG pH POC ABG pCO2 POC ABG pO2 ABG pO2 ABG HCO3 ABG Base Excess ABG Hemoglobin Oxyhemoglobin Sodium Potassium Chloride Carbon Dioxide BUN 67 H Creatinine 1.4 H Glucose 126 H POC Glucose 129 H 129 H Lactic Acid Calcium Phosphorus Magnesium Direct Bilirubin AST ALT Alkaline Phosphatase Lactate Dehydrogenase Troponin T C-Reactive Protein Total Protein Albumin Prealbumin Triglycerides Cholesterol LDL Cholesterol Direct HDL Cholesterol Urine pH Urine WBC (Auto) Urine Creatinine Urine Total Protein Fluid Total Protein Vancomycin Trough Rheumatoid Factor Complement C4 Miscellaneous Test Crossmatch 12/07/16 12/07/16 12/07/16 06:30 08:00 09:45 WBC 18.8 H RBC 2.52 L Hgb 6.9 L 6.8 L Hct 21.2 L 21.1 L MCV MCH 27 L MCHC RDW 18.0 H Plt Count Lymph % (Auto) [place] % (Auto) 9.9 H Lymph # [place] # 1.9 H Baso # Seg Neutrophils % 71.8 H Seg Neuts % (Manual) Lymphocytes % (Manual) Monocytes % (Manual) Eosinophils % (Manual) Basophils % (Manual) Nucleated RBC % Seg Neutrophils # 13.5 H Seg Neutrophils # Man Lymphocytes # (Manual) Monocytes # (Manual) Eosinophils # (Manual) Basophils # (Manual) PT INR Fibrinogen dRVVT Confirm Interp Factor V Activity POC ABG pH POC ABG pCO2 POC ABG pO2 ABG pO2 ABG HCO3 ABG Base Excess ABG Hemoglobin Oxyhemoglobin Sodium Potassium Chloride Carbon Dioxide BUN Creatinine Glucose POC Glucose Lactic Acid Calcium Phosphorus Magnesium Direct Bilirubin AST ALT Alkaline Phosphatase Lactate Dehydrogenase Troponin T C-Reactive Protein Total Protein Albumin Prealbumin Triglycerides Cholesterol LDL Cholesterol Direct HDL Cholesterol Urine pH Urine WBC (Auto) Urine Creatinine Urine Total Protein Fluid Total Protein Vancomycin Trough Rheumatoid Factor Complement C4 Miscellaneous Test Crossmatch See Detail 12/07/16 12/07/16 12/07/16 11:44 18:19 23:59 WBC RBC Hgb Hct MCV MCH MCHC RDW Plt Count Lymph % (Auto) [place] % (Auto) Lymph # [place] # Baso # Seg Neutrophils % Seg Neuts % (Manual) Lymphocytes % (Manual) Monocytes % (Manual) Eosinophils % (Manual) Basophils % (Manual) Nucleated RBC % Seg Neutrophils # Seg Neutrophils # Man Lymphocytes # (Manual) Monocytes # (Manual) Eosinophils # (Manual) Basophils # (Manual) PT INR Fibrinogen dRVVT Confirm Interp Factor V Activity POC ABG pH POC ABG pCO2 POC ABG pO2 ABG pO2 ABG HCO3 ABG Base Excess ABG Hemoglobin Oxyhemoglobin Sodium Potassium Chloride Carbon Dioxide BUN Creatinine Glucose POC Glucose 137 H 138 H 133 H Lactic Acid Calcium Phosphorus Magnesium Direct Bilirubin AST ALT Alkaline Phosphatase Lactate Dehydrogenase Troponin T C-Reactive Protein Total Protein Albumin Prealbumin Triglycerides Cholesterol LDL Cholesterol Direct HDL Cholesterol Urine pH Urine WBC (Auto) Urine Creatinine Urine Total Protein Fluid Total Protein Vancomycin Trough Rheumatoid Factor Complement C4 Miscellaneous Test Crossmatch 12/08/16 12/08/16 12/08/16 05:25 05:30 05:30 WBC 23.8 H RBC 2.88 L Hgb 8.1 L Hct 24.3 L MCV MCH MCHC RDW 16.7 H Plt Count Lymph % (Auto) [place] % (Auto) Lymph # [place] # Baso # Seg Neutrophils % Seg Neuts % (Manual) 76.0 H Lymphocytes % (Manual) 9.0 L Monocytes % (Manual) 9.0 H Eosinophils % (Manual) Basophils % (Manual) Nucleated RBC % Seg Neutrophils # Seg Neutrophils # Man 18.1 H Lymphocytes # (Manual) Monocytes # (Manual) 2.1 H Eosinophils # (Manual) Basophils # (Manual) PT INR Fibrinogen dRVVT Confirm Interp Factor V Activity POC ABG pH POC ABG pCO2 POC ABG pO2 ABG pO2 ABG HCO3 ABG Base Excess ABG Hemoglobin Oxyhemoglobin Sodium Potassium Chloride Carbon Dioxide 21 L BUN 76 H Creatinine 1.6 H Glucose 133 H POC Glucose 177 H Lactic Acid Calcium Phosphorus Magnesium Direct Bilirubin AST ALT Alkaline Phosphatase Lactate Dehydrogenase Troponin T C-Reactive Protein Total Protein Albumin Prealbumin Triglycerides Cholesterol LDL Cholesterol Direct HDL Cholesterol Urine pH Urine WBC (Auto) Urine Creatinine Urine Total Protein Fluid Total Protein Vancomycin Trough Rheumatoid Factor Complement C4 Miscellaneous Test Crossmatch 12/08/16 12/08/16 12/09/16 11:45 18:00 00:00 WBC RBC Hgb Hct MCV MCH MCHC RDW Plt Count Lymph % (Auto) [place] % (Auto) Lymph # [place] # Baso # Seg Neutrophils % Seg Neuts % (Manual) Lymphocytes % (Manual) Monocytes % (Manual) Eosinophils % (Manual) Basophils % (Manual) Nucleated RBC % Seg Neutrophils # Seg Neutrophils # Man Lymphocytes # (Manual) Monocytes # (Manual) Eosinophils # (Manual) Basophils # (Manual) PT INR Fibrinogen dRVVT Confirm Interp Factor V Activity POC ABG pH POC ABG pCO2 POC ABG pO2 ABG pO2 ABG HCO3 ABG Base Excess ABG Hemoglobin Oxyhemoglobin Sodium Potassium Chloride Carbon Dioxide BUN Creatinine Glucose POC Glucose 163 H 123 H 137 H Lactic Acid Calcium Phosphorus Magnesium Direct Bilirubin AST ALT Alkaline Phosphatase Lactate Dehydrogenase Troponin T C-Reactive Protein Total Protein Albumin Prealbumin Triglycerides Cholesterol LDL Cholesterol Direct HDL Cholesterol Urine pH Urine WBC (Auto) Urine Creatinine Urine Total Protein Fluid Total Protein Vancomycin Trough Rheumatoid Factor Complement C4 Miscellaneous Test Crossmatch 12/09/16 12/09/16 12/09/16 05:34 06:00 06:00 WBC 15.5 H RBC 2.87 L Hgb 8.0 L Hct 24.2 L MCV MCH MCHC RDW 17.2 H Plt Count Lymph % (Auto) [place] % (Auto) 11.6 H Lymph # [place] # 1.8 H Baso # Seg Neutrophils % 70.8 H Seg Neuts % (Manual) Lymphocytes % (Manual) Monocytes % (Manual) Eosinophils % (Manual) Basophils % (Manual) Nucleated RBC % Seg Neutrophils # 11.0 H Seg Neutrophils # Man Lymphocytes # (Manual) Monocytes # (Manual) Eosinophils # (Manual) Basophils # (Manual) PT INR Fibrinogen dRVVT Confirm Interp Factor V Activity POC ABG pH POC ABG pCO2 POC ABG pO2 ABG pO2 ABG HCO3 ABG Base Excess ABG Hemoglobin Oxyhemoglobin Sodium Potassium Chloride Carbon Dioxide BUN 51 H Creatinine Glucose 117 H POC Glucose 136 H Lactic Acid Calcium Phosphorus Magnesium Direct Bilirubin AST ALT Alkaline Phosphatase Lactate Dehydrogenase Troponin T C-Reactive Protein Total Protein Albumin Prealbumin Triglycerides Cholesterol LDL Cholesterol Direct HDL Cholesterol Urine pH Urine WBC (Auto) Urine Creatinine Urine Total Protein Fluid Total Protein Vancomycin Trough Rheumatoid Factor Complement C4 Miscellaneous Test Crossmatch 12/09/16 12/09/16 12/09/16 12:29 17:52 23:10 WBC RBC Hgb Hct MCV MCH MCHC RDW Plt Count Lymph % (Auto) [place] % (Auto) Lymph # [place] # Baso # Seg Neutrophils % Seg Neuts % (Manual) Lymphocytes % (Manual) Monocytes % (Manual) Eosinophils % (Manual) Basophils % (Manual) Nucleated RBC % Seg Neutrophils # Seg Neutrophils # Man Lymphocytes # (Manual) Monocytes # (Manual) Eosinophils # (Manual) Basophils # (Manual) PT INR Fibrinogen dRVVT Confirm Interp Factor V Activity POC ABG pH POC ABG pCO2 POC ABG pO2 ABG pO2 ABG HCO3 ABG Base Excess ABG Hemoglobin Oxyhemoglobin Sodium Potassium Chloride Carbon Dioxide BUN Creatinine Glucose POC Glucose 139 H 140 H 129 H Lactic Acid Calcium Phosphorus Magnesium Direct Bilirubin AST ALT Alkaline Phosphatase Lactate Dehydrogenase Troponin T C-Reactive Protein Total Protein Albumin Prealbumin Triglycerides Cholesterol LDL Cholesterol Direct HDL Cholesterol Urine pH Urine WBC (Auto) Urine Creatinine Urine Total Protein Fluid Total Protein Vancomycin Trough Rheumatoid Factor Complement C4 Miscellaneous Test Crossmatch 12/10/16 12/10/16 12/10/16 05:00 05:00 06:54 WBC 15.7 H RBC 2.87 L Hgb 8.2 L Hct 24.4 L MCV MCH MCHC RDW 17.2 H Plt Count Lymph % (Auto) [place] % (Auto) 8.3 H Lymph # [place] # 1.3 H Baso # Seg Neutrophils % 72.8 H Seg Neuts % (Manual) Lymphocytes % (Manual) Monocytes % (Manual) Eosinophils % (Manual) Basophils % (Manual) Nucleated RBC % Seg Neutrophils # 11.4 H Seg Neutrophils # Man Lymphocytes # (Manual) Monocytes # (Manual) Eosinophils # (Manual) Basophils # (Manual) PT INR Fibrinogen dRVVT Confirm Interp Factor V Activity POC ABG pH POC ABG pCO2 POC ABG pO2 ABG pO2 ABG HCO3 ABG Base Excess ABG Hemoglobin Oxyhemoglobin Sodium Potassium Chloride Carbon Dioxide BUN 64 H Creatinine 1.4 H Glucose 134 H POC Glucose 154 H Lactic Acid Calcium Phosphorus Magnesium Direct Bilirubin AST ALT Alkaline Phosphatase Lactate Dehydrogenase Troponin T C-Reactive Protein Total Protein Albumin Prealbumin Triglycerides Cholesterol LDL Cholesterol Direct HDL Cholesterol Urine pH Urine WBC (Auto) Urine Creatinine Urine Total Protein Fluid Total Protein Vancomycin Trough Rheumatoid Factor Complement C4 Miscellaneous Test Crossmatch 12/10/16 12/10/16 12/10/16 11:58 17:29 23:52 WBC RBC Hgb Hct MCV MCH MCHC RDW Plt Count Lymph % (Auto) [place] % (Auto) Lymph # [place] # Baso # Seg Neutrophils % Seg Neuts % (Manual) Lymphocytes % (Manual) Monocytes % (Manual) Eosinophils % (Manual) Basophils % (Manual) Nucleated RBC % Seg Neutrophils # Seg Neutrophils # Man Lymphocytes # (Manual) Monocytes # (Manual) Eosinophils # (Manual) Basophils # (Manual) PT INR Fibrinogen dRVVT Confirm Interp Factor V Activity POC ABG pH POC ABG pCO2 POC ABG pO2 ABG pO2 ABG HCO3 ABG Base Excess ABG Hemoglobin Oxyhemoglobin Sodium Potassium Chloride Carbon Dioxide BUN Creatinine Glucose POC Glucose 144 H 163 H 125 H Lactic Acid Calcium Phosphorus Magnesium Direct Bilirubin AST ALT Alkaline Phosphatase Lactate Dehydrogenase Troponin T C-Reactive Protein Total Protein Albumin Prealbumin Triglycerides Cholesterol LDL Cholesterol Direct HDL Cholesterol Urine pH Urine WBC (Auto) Urine Creatinine Urine Total Protein Fluid Total Protein Vancomycin Trough Rheumatoid Factor Complement C4 Miscellaneous Test Crossmatch 12/11/16 12/11/16 12/11/16 05:38 06:30 06:30 WBC 14.4 H RBC 2.76 L Hgb 7.7 L Hct 23.4 L MCV MCH MCHC RDW 17.2 H Plt Count Lymph % (Auto) [place] % (Auto) 8.8 H Lymph # [place] # 1.3 H Baso # Seg Neutrophils % 72.5 H Seg Neuts % (Manual) Lymphocytes % (Manual) Monocytes % (Manual) Eosinophils % (Manual) Basophils % (Manual) Nucleated RBC % Seg Neutrophils # 10.5 H Seg Neutrophils # Man Lymphocytes # (Manual) Monocytes # (Manual) Eosinophils # (Manual) Basophils # (Manual) PT INR Fibrinogen dRVVT Confirm Interp Factor V Activity POC ABG pH POC ABG pCO2 POC ABG pO2 ABG pO2 ABG HCO3 ABG Base Excess ABG Hemoglobin Oxyhemoglobin Sodium Potassium Chloride Carbon Dioxide BUN 43 H Creatinine Glucose 124 H POC Glucose 141 H Lactic Acid Calcium 8.3 L Phosphorus Magnesium 1.60 L Direct Bilirubin AST ALT Alkaline Phosphatase Lactate Dehydrogenase Troponin T C-Reactive Protein Total Protein Albumin Prealbumin Triglycerides Cholesterol LDL Cholesterol Direct HDL Cholesterol Urine pH Urine WBC (Auto) Urine Creatinine Urine Total Protein Fluid Total Protein Vancomycin Trough Rheumatoid Factor Complement C4 Miscellaneous Test Crossmatch 12/11/16 12/11/16 12/11/16 11:15 17:59 23:48 WBC RBC Hgb Hct MCV MCH MCHC RDW Plt Count Lymph % (Auto) [place] % (Auto) Lymph # [place] # Baso # Seg Neutrophils % Seg Neuts % (Manual) Lymphocytes % (Manual) Monocytes % (Manual) Eosinophils % (Manual) Basophils % (Manual) Nucleated RBC % Seg Neutrophils # Seg Neutrophils # Man Lymphocytes # (Manual) Monocytes # (Manual) Eosinophils # (Manual) Basophils # (Manual) PT INR Fibrinogen dRVVT Confirm Interp Factor V Activity POC ABG pH POC ABG pCO2 POC ABG pO2 ABG pO2 ABG HCO3 ABG Base Excess ABG Hemoglobin Oxyhemoglobin Sodium Potassium Chloride Carbon Dioxide BUN Creatinine Glucose POC Glucose 188 H 106 H 119 H Lactic Acid Calcium Phosphorus Magnesium Direct Bilirubin AST ALT Alkaline Phosphatase Lactate Dehydrogenase Troponin T C-Reactive Protein Total Protein Albumin Prealbumin Triglycerides Cholesterol LDL Cholesterol Direct HDL Cholesterol Urine pH Urine WBC (Auto) Urine Creatinine Urine Total Protein Fluid Total Protein Vancomycin Trough Rheumatoid Factor Complement C4 Miscellaneous Test Crossmatch 12/12/16 12/12/16 12/12/16 05:00 06:01 12:20 WBC 16.7 H RBC 2.87 L Hgb 8.0 L Hct 24.2 L MCV MCH MCHC RDW 17.6 H Plt Count Lymph % (Auto) [place] % (Auto) Lymph # [place] # 1.2 H Baso # Seg Neutrophils % 75.3 H Seg Neuts % (Manual) Lymphocytes % (Manual) Monocytes % (Manual) Eosinophils % (Manual) Basophils % (Manual) Nucleated RBC % Seg Neutrophils # 12.6 H Seg Neutrophils # Man Lymphocytes # (Manual) Monocytes # (Manual) Eosinophils # (Manual) Basophils # (Manual) PT INR Fibrinogen dRVVT Confirm Interp Factor V Activity POC ABG pH POC ABG pCO2 POC ABG pO2 ABG pO2 ABG HCO3 ABG Base Excess ABG Hemoglobin Oxyhemoglobin Sodium Potassium Chloride Carbon Dioxide BUN Creatinine Glucose POC Glucose 134 H 149 H Lactic Acid Calcium Phosphorus Magnesium Direct Bilirubin AST ALT Alkaline Phosphatase Lactate Dehydrogenase Troponin T C-Reactive Protein Total Protein Albumin Prealbumin Triglycerides Cholesterol LDL Cholesterol Direct HDL Cholesterol Urine pH Urine WBC (Auto) Urine Creatinine Urine Total Protein Fluid Total Protein Vancomycin Trough Rheumatoid Factor Complement C4 Miscellaneous Test Crossmatch 12/12/16 12/12/16 12/12/16 17:38 23:01 Unknown WBC RBC Hgb Hct MCV MCH MCHC RDW Plt Count Lymph % (Auto) [place] % (Auto) Lymph # [place] # Baso # Seg Neutrophils % Seg Neuts % (Manual) Lymphocytes % (Manual) Monocytes % (Manual) Eosinophils % (Manual) Basophils % (Manual) Nucleated RBC % Seg Neutrophils # Seg Neutrophils # Man Lymphocytes # (Manual) Monocytes # (Manual) Eosinophils # (Manual) Basophils # (Manual) PT INR Fibrinogen dRVVT Confirm Interp Factor V Activity POC ABG pH POC ABG pCO2 POC ABG pO2 ABG pO2 ABG HCO3 ABG Base Excess ABG Hemoglobin Oxyhemoglobin Sodium Potassium Chloride Carbon Dioxide BUN 60 H Creatinine 1.3 H Glucose 126 H POC Glucose 127 H 144 H Lactic Acid Calcium Phosphorus Magnesium Direct Bilirubin AST ALT Alkaline Phosphatase Lactate Dehydrogenase Troponin T C-Reactive Protein Total Protein Albumin Prealbumin Triglycerides Cholesterol LDL Cholesterol Direct HDL Cholesterol Urine pH Urine WBC (Auto) Urine Creatinine Urine Total Protein Fluid Total Protein Vancomycin Trough Rheumatoid Factor Complement C4 Miscellaneous Test Crossmatch 12/13/16 12/13/16 12/13/16 04:00 04:00 05:19 WBC 18.7 H RBC 2.89 L Hgb 8.3 L Hct 24.6 L MCV MCH MCHC RDW 17.5 H Plt Count Lymph % (Auto) [place] % (Auto) Lymph # [place] # 1.3 H Baso # Seg Neutrophils % 71.5 H Seg Neuts % (Manual) Lymphocytes % (Manual) Monocytes % (Manual) Eosinophils % (Manual) Basophils % (Manual) Nucleated RBC % Seg Neutrophils # 13.4 H Seg Neutrophils # Man Lymphocytes # (Manual) Monocytes # (Manual) Eosinophils # (Manual) Basophils # (Manual) PT INR Fibrinogen dRVVT Confirm Interp Factor V Activity POC ABG pH POC ABG pCO2 POC ABG pO2 ABG pO2 ABG HCO3 ABG Base Excess ABG Hemoglobin Oxyhemoglobin Sodium Potassium Chloride Carbon Dioxide BUN 73 H Creatinine 1.5 H Glucose 141 H POC Glucose 171 H Lactic Acid Calcium Phosphorus Magnesium Direct Bilirubin AST ALT Alkaline Phosphatase Lactate Dehydrogenase Troponin T C-Reactive Protein Total Protein Albumin Prealbumin Triglycerides Cholesterol LDL Cholesterol Direct HDL Cholesterol Urine pH Urine WBC (Auto) Urine Creatinine Urine Total Protein Fluid Total Protein Vancomycin Trough Rheumatoid Factor Complement C4 Miscellaneous Test Crossmatch 12/13/16 12/13/16 12/14/16 12:28 16:48 00:01 WBC RBC Hgb Hct MCV MCH MCHC RDW Plt Count Lymph % (Auto) [place] % (Auto) Lymph # [place] # Baso # Seg Neutrophils % Seg Neuts % (Manual) Lymphocytes % (Manual) Monocytes % (Manual) Eosinophils % (Manual) Basophils % (Manual) Nucleated RBC % Seg Neutrophils # Seg Neutrophils # Man Lymphocytes # (Manual) Monocytes # (Manual) Eosinophils # (Manual) Basophils # (Manual) PT INR Fibrinogen dRVVT Confirm Interp Factor V Activity POC ABG pH POC ABG pCO2 POC ABG pO2 ABG pO2 ABG HCO3 ABG Base Excess ABG Hemoglobin Oxyhemoglobin Sodium Potassium Chloride Carbon Dioxide BUN Creatinine Glucose POC Glucose 206 H 173 H 139 H Lactic Acid Calcium Phosphorus Magnesium Direct Bilirubin AST ALT Alkaline Phosphatase Lactate Dehydrogenase Troponin T C-Reactive Protein Total Protein Albumin Prealbumin Triglycerides Cholesterol LDL Cholesterol Direct HDL Cholesterol Urine pH Urine WBC (Auto) Urine Creatinine Urine Total Protein Fluid Total Protein Vancomycin Trough Rheumatoid Factor Complement C4 Miscellaneous Test Crossmatch 12/14/16 12/14/16 12/14/16 05:16 06:10 11:17 WBC RBC Hgb Hct MCV MCH MCHC RDW Plt Count Lymph % (Auto) [place] % (Auto) Lymph # [place] # Baso # Seg Neutrophils % Seg Neuts % (Manual) Lymphocytes % (Manual) Monocytes % (Manual) Eosinophils % (Manual) Basophils % (Manual) Nucleated RBC % Seg Neutrophils # Seg Neutrophils # Man Lymphocytes # (Manual) Monocytes # (Manual) Eosinophils # (Manual) Basophils # (Manual) PT INR Fibrinogen dRVVT Confirm Interp Factor V Activity POC ABG pH POC ABG pCO2 POC ABG pO2 ABG pO2 ABG HCO3 ABG Base Excess ABG Hemoglobin Oxyhemoglobin Sodium Potassium Chloride Carbon Dioxide BUN 57 H Creatinine 1.4 H Glucose 135 H POC Glucose 158 H 137 H Lactic Acid Calcium Phosphorus Magnesium Direct Bilirubin AST ALT Alkaline Phosphatase Lactate Dehydrogenase Troponin T C-Reactive Protein Total Protein Albumin Prealbumin Triglycerides Cholesterol LDL Cholesterol Direct HDL Cholesterol Urine pH Urine WBC (Auto) Urine Creatinine Urine Total Protein Fluid Total Protein Vancomycin Trough Rheumatoid Factor Complement C4 Miscellaneous Test Crossmatch 12/14/16 12/14/16 12/15/16 17:52 23:27 04:00 WBC RBC Hgb Hct MCV MCH MCHC RDW Plt Count Lymph % (Auto) [place] % (Auto) Lymph # [place] # Baso # Seg Neutrophils % Seg Neuts % (Manual) Lymphocytes % (Manual) Monocytes % (Manual) Eosinophils % (Manual) Basophils % (Manual) Nucleated RBC % Seg Neutrophils # Seg Neutrophils # Man Lymphocytes # (Manual) Monocytes # (Manual) Eosinophils # (Manual) Basophils # (Manual) PT INR Fibrinogen dRVVT Confirm Interp Factor V Activity POC ABG pH POC ABG pCO2 POC ABG pO2 ABG pO2 ABG HCO3 ABG Base Excess ABG Hemoglobin Oxyhemoglobin Sodium Potassium Chloride 97.9 L Carbon Dioxide BUN 75 H Creatinine 1.6 H Glucose 122 H POC Glucose 149 H 163 H Lactic Acid Calcium Phosphorus 5.20 H Magnesium Direct Bilirubin AST ALT Alkaline Phosphatase Lactate Dehydrogenase Troponin T C-Reactive Protein Total Protein Albumin Prealbumin Triglycerides Cholesterol LDL Cholesterol Direct HDL Cholesterol Urine pH Urine WBC (Auto) Urine Creatinine Urine Total Protein Fluid Total Protein Vancomycin Trough Rheumatoid Factor Complement C4 Miscellaneous Test Crossmatch 12/15/16 12/15/16 12/15/16 05:50 11:24 17:01 WBC RBC Hgb Hct MCV MCH MCHC RDW Plt Count Lymph % (Auto) [place] % (Auto) Lymph # [place] # Baso # Seg Neutrophils % Seg Neuts % (Manual) Lymphocytes % (Manual) Monocytes % (Manual) Eosinophils % (Manual) Basophils % (Manual) Nucleated RBC % Seg Neutrophils # Seg Neutrophils # Man Lymphocytes # (Manual) Monocytes # (Manual) Eosinophils # (Manual) Basophils # (Manual) PT INR Fibrinogen dRVVT Confirm Interp Factor V Activity POC ABG pH POC ABG pCO2 POC ABG pO2 ABG pO2 ABG HCO3 ABG Base Excess ABG Hemoglobin Oxyhemoglobin Sodium Potassium Chloride Carbon Dioxide BUN Creatinine Glucose POC Glucose 150 H 146 H 167 H Lactic Acid Calcium Phosphorus Magnesium Direct Bilirubin AST ALT Alkaline Phosphatase Lactate Dehydrogenase Troponin T C-Reactive Protein Total Protein Albumin Prealbumin Triglycerides Cholesterol LDL Cholesterol Direct HDL Cholesterol Urine pH Urine WBC (Auto) Urine Creatinine Urine Total Protein Fluid Total Protein Vancomycin Trough Rheumatoid Factor Complement C4 Miscellaneous Test Crossmatch 12/15/16 12/16/16 12/16/16 23:34 05:25 11:24 WBC RBC Hgb Hct MCV MCH MCHC RDW Plt Count Lymph % (Auto) [place] % (Auto) Lymph # [place] # Baso # Seg Neutrophils % Seg Neuts % (Manual) Lymphocytes % (Manual) Monocytes % (Manual) Eosinophils % (Manual) Basophils % (Manual) Nucleated RBC % Seg Neutrophils # Seg Neutrophils # Man Lymphocytes # (Manual) Monocytes # (Manual) Eosinophils # (Manual) Basophils # (Manual) PT INR Fibrinogen dRVVT Confirm Interp Factor V Activity POC ABG pH POC ABG pCO2 POC ABG pO2 ABG pO2 ABG HCO3 ABG Base Excess ABG Hemoglobin Oxyhemoglobin Sodium Potassium Chloride Carbon Dioxide BUN Creatinine Glucose POC Glucose 127 H 139 H 165 H Lactic Acid Calcium Phosphorus Magnesium Direct Bilirubin AST ALT Alkaline Phosphatase Lactate Dehydrogenase Troponin T C-Reactive Protein Total Protein Albumin Prealbumin Triglycerides Cholesterol LDL Cholesterol Direct HDL Cholesterol Urine pH Urine WBC (Auto) Urine Creatinine Urine Total Protein Fluid Total Protein Vancomycin Trough Rheumatoid Factor Complement C4 Miscellaneous Test Crossmatch 12/16/16 12/16/16 12/16/16 15:30 16:25 17:31 WBC 17.8 H RBC 2.38 L Hgb 6.4 L Hct 20.3 L MCV MCH 27 L MCHC RDW 17.4 H Plt Count Lymph % (Auto) [place] % (Auto) Lymph # [place] # Baso # Seg Neutrophils % Seg Neuts % (Manual) Lymphocytes % (Manual) Monocytes % (Manual) 10.0 H Eosinophils % (Manual) Basophils % (Manual) Nucleated RBC % Seg Neutrophils # Seg Neutrophils # Man 8.5 H Lymphocytes # (Manual) Monocytes # (Manual) 1.8 H Eosinophils # (Manual) Basophils # (Manual) PT INR Fibrinogen dRVVT Confirm Interp Factor V Activity POC ABG pH POC ABG pCO2 POC ABG pO2 ABG pO2 ABG HCO3 ABG Base Excess ABG Hemoglobin Oxyhemoglobin Sodium Potassium Chloride Carbon Dioxide BUN Creatinine Glucose POC Glucose 176 H Lactic Acid Calcium Phosphorus Magnesium Direct Bilirubin AST ALT Alkaline Phosphatase Lactate Dehydrogenase Troponin T C-Reactive Protein Total Protein Albumin Prealbumin Triglycerides Cholesterol LDL Cholesterol Direct HDL Cholesterol Urine pH Urine WBC (Auto) Urine Creatinine Urine Total Protein Fluid Total Protein Vancomycin Trough Rheumatoid Factor Complement C4 Miscellaneous Test Crossmatch See Detail 12/17/16 12/17/16 12/17/16 00:14 04:00 05:00 WBC 20.0 H RBC 2.99 L Hgb 8.5 L Hct 25.7 L MCV MCH MCHC RDW 17.2 H Plt Count Lymph % (Auto) [place] % (Auto) Lymph # [place] # Baso # Seg Neutrophils % Seg Neuts % (Manual) Lymphocytes % (Manual) Monocytes % (Manual) Eosinophils % (Manual) Basophils % (Manual) Nucleated RBC % Seg Neutrophils # Seg Neutrophils # Man Lymphocytes # (Manual) Monocytes # (Manual) Eosinophils # (Manual) Basophils # (Manual) PT INR Fibrinogen dRVVT Confirm Interp Factor V Activity POC ABG pH POC ABG pCO2 POC ABG pO2 ABG pO2 ABG HCO3 ABG Base Excess ABG Hemoglobin Oxyhemoglobin Sodium Potassium Chloride 97.7 L Carbon Dioxide BUN 73 H Creatinine 1.7 H Glucose 136 H POC Glucose 148 H Lactic Acid Calcium Phosphorus 2.20 L Magnesium 2.70 H Direct Bilirubin AST ALT Alkaline Phosphatase Lactate Dehydrogenase Troponin T C-Reactive Protein Total Protein Albumin Prealbumin Triglycerides Cholesterol LDL Cholesterol Direct HDL Cholesterol Urine pH Urine WBC (Auto) Urine Creatinine Urine Total Protein Fluid Total Protein Vancomycin Trough Rheumatoid Factor Complement C4 Miscellaneous Test Crossmatch 12/17/16 12/17/1617 05:39 12:50 16:32 WBC RBC Hgb Hct MCV MCH MCHC RDW Plt Count Lymph % (Auto) [place] % (Auto) Lymph # [place] # Baso # Seg Neutrophils % Seg Neuts % (Manual) Lymphocytes % (Manual) Monocytes % (Manual) Eosinophils % (Manual) Basophils % (Manual) Nucleated RBC % Seg Neutrophils # Seg Neutrophils # Man Lymphocytes # (Manual) Monocytes # (Manual) Eosinophils # (Manual) Basophils # (Manual) PT INR Fibrinogen dRVVT Confirm Interp Factor V Activity POC ABG pH POC ABG pCO2 POC ABG pO2 ABG pO2 ABG HCO3 ABG Base Excess ABG Hemoglobin Oxyhemoglobin Sodium Potassium Chloride Carbon Dioxide BUN Creatinine Glucose POC Glucose 162 H 146 H 169 H Lactic Acid Calcium Phosphorus Magnesium Direct Bilirubin AST ALT Alkaline Phosphatase Lactate Dehydrogenase Troponin T C-Reactive Protein Total Protein Albumin Prealbumin Triglycerides Cholesterol LDL Cholesterol Direct HDL Cholesterol Urine pH Urine WBC (Auto) Urine Creatinine Urine Total Protein Fluid Total Protein Vancomycin Trough Rheumatoid Factor Complement C4 Miscellaneous Test Crossmatch 12/17/16 12/18/16 12/18/16 23:57 05:00 05:32 WBC RBC Hgb Hct MCV MCH MCHC RDW Plt Count Lymph % (Auto) [place] % (Auto) Lymph # [place] # Baso # Seg Neutrophils % Seg Neuts % (Manual) Lymphocytes % (Manual) Monocytes % (Manual) Eosinophils % (Manual) Basophils % (Manual) Nucleated RBC % Seg Neutrophils # Seg Neutrophils # Man Lymphocytes # (Manual) Monocytes # (Manual) Eosinophils # (Manual) Basophils # (Manual) PT INR Fibrinogen dRVVT Confirm Interp Factor V Activity POC ABG pH POC ABG pCO2 POC ABG pO2 ABG pO2 ABG HCO3 ABG Base Excess ABG Hemoglobin Oxyhemoglobin Sodium Potassium Chloride 97.0 L Carbon Dioxide BUN 63 H Creatinine 1.4 H Glucose 174 H POC Glucose 145 H 201 H Lactic Acid Calcium Phosphorus 1.70 L D Magnesium Direct Bilirubin AST ALT Alkaline Phosphatase 257 H Lactate Dehydrogenase Troponin T C-Reactive Protein Total Protein 5.9 L Albumin 1.8 L Prealbumin Triglycerides Cholesterol LDL Cholesterol Direct HDL Cholesterol Urine pH Urine WBC (Auto) Urine Creatinine Urine Total Protein Fluid Total Protein Vancomycin Trough Rheumatoid Factor Complement C4 Miscellaneous Test Crossmatch 12/18/16 12/18/16 12/18/16 11:43 16:52 23:52 WBC RBC Hgb Hct MCV MCH MCHC RDW Plt Count Lymph % (Auto) [place] % (Auto) Lymph # [place] # Baso # Seg Neutrophils % Seg Neuts % (Manual) Lymphocytes % (Manual) Monocytes % (Manual) Eosinophils % (Manual) Basophils % (Manual) Nucleated RBC % Seg Neutrophils # Seg Neutrophils # Man Lymphocytes # (Manual) Monocytes # (Manual) Eosinophils # (Manual) Basophils # (Manual) PT INR Fibrinogen dRVVT Confirm Interp Factor V Activity POC ABG pH POC ABG pCO2 POC ABG pO2 ABG pO2 ABG HCO3 ABG Base Excess ABG Hemoglobin Oxyhemoglobin Sodium Potassium Chloride Carbon Dioxide BUN Creatinine Glucose POC Glucose 177 H 110 H 162 H Lactic Acid Calcium Phosphorus Magnesium Direct Bilirubin AST ALT Alkaline Phosphatase Lactate Dehydrogenase Troponin T C-Reactive Protein Total Protein Albumin Prealbumin Triglycerides Cholesterol LDL Cholesterol Direct HDL Cholesterol Urine pH Urine WBC (Auto) Urine Creatinine Urine Total Protein Fluid Total Protein Vancomycin Trough Rheumatoid Factor Complement C4 Miscellaneous Test Crossmatch 12/19/16 12/19/16 12/19/16 05:02 05:24 09:30 WBC 20.1 H RBC 2.73 L Hgb 7.6 L Hct 23.6 L MCV MCH MCHC RDW 17.6 H Plt Count Lymph % (Auto) [place] % (Auto) Lymph # [place] # Baso # Seg Neutrophils % Seg Neuts % (Manual) Lymphocytes % (Manual) 13.0 L Monocytes % (Manual) Eosinophils % (Manual) Basophils % (Manual) Nucleated RBC % 1.0 H Seg Neutrophils # Seg Neutrophils # Man 12.9 H Lymphocytes # (Manual) Monocytes # (Manual) 1.4 H Eosinophils # (Manual) Basophils # (Manual) 0.2 H PT INR Fibrinogen dRVVT Confirm Interp Factor V Activity POC ABG pH POC ABG pCO2 POC ABG pO2 ABG pO2 ABG HCO3 ABG Base Excess ABG Hemoglobin Oxyhemoglobin Sodium Potassium Chloride 97.8 L Carbon Dioxide BUN 84 H Creatinine 1.6 H Glucose 133 H POC Glucose 134 H Lactic Acid Calcium Phosphorus Magnesium Direct Bilirubin AST ALT Alkaline Phosphatase Lactate Dehydrogenase Troponin T C-Reactive Protein Total Protein Albumin Prealbumin Triglycerides Cholesterol LDL Cholesterol Direct HDL Cholesterol Urine pH Urine WBC (Auto) Urine Creatinine Urine Total Protein Fluid Total Protein Vancomycin Trough Rheumatoid Factor Complement C4 Miscellaneous Test Crossmatch 12/19/16 12/19/16 12/19/16 09:36 11:12 18:29 WBC RBC Hgb Hct MCV MCH MCHC RDW Plt Count Lymph % (Auto) [place] % (Auto) Lymph # [place] # Baso # Seg Neutrophils % Seg Neuts % (Manual) Lymphocytes % (Manual) Monocytes % (Manual) Eosinophils % (Manual) Basophils % (Manual) Nucleated RBC % Seg Neutrophils # Seg Neutrophils # Man Lymphocytes # (Manual) Monocytes # (Manual) Eosinophils # (Manual) Basophils # (Manual) PT INR Fibrinogen dRVVT Confirm Interp Factor V Activity POC ABG pH 7.503 H POC ABG pCO2 30.1 L POC ABG pO2 ABG pO2 ABG HCO3 ABG Base Excess ABG Hemoglobin Oxyhemoglobin Sodium Potassium Chloride Carbon Dioxide BUN Creatinine Glucose POC Glucose 138 H 156 H Lactic Acid Calcium Phosphorus Magnesium Direct Bilirubin AST ALT Alkaline Phosphatase Lactate Dehydrogenase Troponin T C-Reactive Protein Total Protein Albumin Prealbumin Triglycerides Cholesterol LDL Cholesterol Direct HDL Cholesterol Urine pH Urine WBC (Auto) Urine Creatinine Urine Total Protein Fluid Total Protein Vancomycin Trough Rheumatoid Factor Complement C4 Miscellaneous Test Crossmatch 12/20/16 12/20/16 12/20/16 00:03 06:17 07:07 WBC RBC Hgb Hct MCV MCH MCHC RDW Plt Count Lymph % (Auto) [place] % (Auto) Lymph # [place] # Baso # Seg Neutrophils % Seg Neuts % (Manual) Lymphocytes % (Manual) Monocytes % (Manual) Eosinophils % (Manual) Basophils % (Manual) Nucleated RBC % Seg Neutrophils # Seg Neutrophils # Man Lymphocytes # (Manual) Monocytes # (Manual) Eosinophils # (Manual) Basophils # (Manual) PT INR Fibrinogen dRVVT Confirm Interp Factor V Activity POC ABG pH POC ABG pCO2 POC ABG pO2 ABG pO2 ABG HCO3 ABG Base Excess ABG Hemoglobin Oxyhemoglobin Sodium Potassium Chloride 97.1 L Carbon Dioxide 20 L BUN 97 H Creatinine 1.8 H Glucose 153 H POC Glucose 152 H 175 H Lactic Acid Calcium Phosphorus Magnesium Direct Bilirubin AST ALT Alkaline Phosphatase Lactate Dehydrogenase Troponin T C-Reactive Protein Total Protein Albumin Prealbumin Triglycerides Cholesterol LDL Cholesterol Direct HDL Cholesterol Urine pH Urine WBC (Auto) Urine Creatinine Urine Total Protein Fluid Total Protein Vancomycin Trough Rheumatoid Factor Complement C4 Miscellaneous Test Crossmatch 12/20/16 12/20/16 12/20/16 12:00 17:42 23:53 WBC RBC Hgb Hct MCV MCH MCHC RDW Plt Count Lymph % (Auto) [place] % (Auto) Lymph # [place] # Baso # Seg Neutrophils % Seg Neuts % (Manual) Lymphocytes % (Manual) Monocytes % (Manual) Eosinophils % (Manual) Basophils % (Manual) Nucleated RBC % Seg Neutrophils # Seg Neutrophils # Man Lymphocytes # (Manual) Monocytes # (Manual) Eosinophils # (Manual) Basophils # (Manual) PT INR Fibrinogen dRVVT Confirm Interp Factor V Activity POC ABG pH POC ABG pCO2 POC ABG pO2 ABG pO2 ABG HCO3 ABG Base Excess ABG Hemoglobin Oxyhemoglobin Sodium Potassium Chloride Carbon Dioxide BUN Creatinine Glucose POC Glucose 141 H 156 H 132 H Lactic Acid Calcium Phosphorus Magnesium Direct Bilirubin AST ALT Alkaline Phosphatase Lactate Dehydrogenase Troponin T C-Reactive Protein Total Protein Albumin Prealbumin Triglycerides Cholesterol LDL Cholesterol Direct HDL Cholesterol Urine pH Urine WBC (Auto) Urine Creatinine Urine Total Protein Fluid Total Protein Vancomycin Trough Rheumatoid Factor Complement C4 Miscellaneous Test Crossmatch 12/21/16 12/21/16 12/21/16 05:49 08:50 12:19 WBC RBC Hgb Hct MCV MCH MCHC RDW Plt Count Lymph % (Auto) [place] % (Auto) Lymph # [place] # Baso # Seg Neutrophils % Seg Neuts % (Manual) Lymphocytes % (Manual) Monocytes % (Manual) Eosinophils % (Manual) Basophils % (Manual) Nucleated RBC % Seg Neutrophils # Seg Neutrophils # Man Lymphocytes # (Manual) Monocytes # (Manual) Eosinophils # (Manual) Basophils # (Manual) PT INR Fibrinogen dRVVT Confirm Interp Factor V Activity POC ABG pH POC ABG pCO2 POC ABG pO2 ABG pO2 ABG HCO3 ABG Base Excess ABG Hemoglobin Oxyhemoglobin Sodium Potassium 5.2 H D Chloride Carbon Dioxide BUN 63 H Creatinine Glucose 122 H POC Glucose 132 H 136 H Lactic Acid Calcium 8.3 L Phosphorus Magnesium Direct Bilirubin AST ALT Alkaline Phosphatase Lactate Dehydrogenase Troponin T C-Reactive Protein Total Protein Albumin Prealbumin Triglycerides Cholesterol LDL Cholesterol Direct HDL Cholesterol Urine pH Urine WBC (Auto) Urine Creatinine Urine Total Protein Fluid Total Protein Vancomycin Trough Rheumatoid Factor Complement C4 Miscellaneous Test Crossmatch 12/21/16 12/21/16 12/22/16 17:22 23:58 05:49 WBC RBC Hgb Hct MCV MCH MCHC RDW Plt Count Lymph % (Auto) [place] % (Auto) Lymph # [place] # Baso # Seg Neutrophils % Seg Neuts % (Manual) Lymphocytes % (Manual) Monocytes % (Manual) Eosinophils % (Manual) Basophils % (Manual) Nucleated RBC % Seg Neutrophils # Seg Neutrophils # Man Lymphocytes # (Manual) Monocytes # (Manual) Eosinophils # (Manual) Basophils # (Manual) PT INR Fibrinogen dRVVT Confirm Interp Factor V Activity POC ABG pH POC ABG pCO2 POC ABG pO2 ABG pO2 ABG HCO3 ABG Base Excess ABG Hemoglobin Oxyhemoglobin Sodium Potassium Chloride Carbon Dioxide BUN Creatinine Glucose POC Glucose 135 H 149 H 140 H Lactic Acid Calcium Phosphorus Magnesium Direct Bilirubin AST ALT Alkaline Phosphatase Lactate Dehydrogenase Troponin T C-Reactive Protein Total Protein Albumin Prealbumin Triglycerides Cholesterol LDL Cholesterol Direct HDL Cholesterol Urine pH Urine WBC (Auto) Urine Creatinine Urine Total Protein Fluid Total Protein Vancomycin Trough Rheumatoid Factor Complement C4 Miscellaneous Test Crossmatch 12/22/16 12/22/16 12/22/16 06:10 11:17 17:31 WBC RBC Hgb Hct MCV MCH MCHC RDW Plt Count Lymph % (Auto) [place] % (Auto) Lymph # [place] # Baso # Seg Neutrophils % Seg Neuts % (Manual) Lymphocytes % (Manual) Monocytes % (Manual) Eosinophils % (Manual) Basophils % (Manual) Nucleated RBC % Seg Neutrophils # Seg Neutrophils # Man Lymphocytes # (Manual) Monocytes # (Manual) Eosinophils # (Manual) Basophils # (Manual) PT INR Fibrinogen dRVVT Confirm Interp Factor V Activity POC ABG pH POC ABG pCO2 POC ABG pO2 ABG pO2 ABG HCO3 ABG Base Excess ABG Hemoglobin Oxyhemoglobin Sodium Potassium Chloride Carbon Dioxide BUN 76 H Creatinine 1.5 H Glucose 241 H POC Glucose 193 H 148 H Lactic Acid Calcium Phosphorus Magnesium Direct Bilirubin AST ALT Alkaline Phosphatase Lactate Dehydrogenase Troponin T C-Reactive Protein Total Protein Albumin Prealbumin Triglycerides Cholesterol LDL Cholesterol Direct HDL Cholesterol Urine pH Urine WBC (Auto) Urine Creatinine Urine Total Protein Fluid Total Protein Vancomycin Trough Rheumatoid Factor Complement C4 Miscellaneous Test Crossmatch 12/22/16 12/23/16 12/23/16 23:58 05:00 05:26 WBC RBC Hgb Hct MCV MCH MCHC RDW Plt Count Lymph % (Auto) [place] % (Auto) Lymph # [place] # Baso # Seg Neutrophils % Seg Neuts % (Manual) Lymphocytes % (Manual) Monocytes % (Manual) Eosinophils % (Manual) Basophils % (Manual) Nucleated RBC % Seg Neutrophils # Seg Neutrophils # Man Lymphocytes # (Manual) Monocytes # (Manual) Eosinophils # (Manual) Basophils # (Manual) PT INR Fibrinogen dRVVT Confirm Interp Factor V Activity POC ABG pH POC ABG pCO2 POC ABG pO2 ABG pO2 ABG HCO3 ABG Base Excess ABG Hemoglobin Oxyhemoglobin Sodium Potassium Chloride Carbon Dioxide BUN 49 H Creatinine Glucose 143 H POC Glucose 165 H 154 H Lactic Acid Calcium 8.2 L Phosphorus Magnesium 1.60 L Direct Bilirubin AST ALT Alkaline Phosphatase Lactate Dehydrogenase Troponin T C-Reactive Protein Total Protein Albumin Prealbumin Triglycerides Cholesterol LDL Cholesterol Direct HDL Cholesterol Urine pH Urine WBC (Auto) Urine Creatinine Urine Total Protein Fluid Total Protein Vancomycin Trough Rheumatoid Factor Complement C4 Miscellaneous Test Crossmatch 12/23/16 12/23/16 12/24/16 12:35 17:01 00:01 WBC RBC Hgb Hct MCV MCH MCHC RDW Plt Count Lymph % (Auto) [place] % (Auto) Lymph # [place] # Baso # Seg Neutrophils % Seg Neuts % (Manual) Lymphocytes % (Manual) Monocytes % (Manual) Eosinophils % (Manual) Basophils % (Manual) Nucleated RBC % Seg Neutrophils # Seg Neutrophils # Man Lymphocytes # (Manual) Monocytes # (Manual) Eosinophils # (Manual) Basophils # (Manual) PT INR Fibrinogen dRVVT Confirm Interp Factor V Activity POC ABG pH POC ABG pCO2 POC ABG pO2 ABG pO2 ABG HCO3 ABG Base Excess ABG Hemoglobin Oxyhemoglobin Sodium Potassium Chloride Carbon Dioxide BUN Creatinine Glucose POC Glucose 164 H 149 H 135 H Lactic Acid Calcium Phosphorus Magnesium Direct Bilirubin AST ALT Alkaline Phosphatase Lactate Dehydrogenase Troponin T C-Reactive Protein Total Protein Albumin Prealbumin Triglycerides Cholesterol LDL Cholesterol Direct HDL Cholesterol Urine pH Urine WBC (Auto) Urine Creatinine Urine Total Protein Fluid Total Protein Vancomycin Trough Rheumatoid Factor Complement C4 Miscellaneous Test Crossmatch 12/24/16 12/24/16 12/24/16 05:41 07:01 11:38 WBC RBC Hgb Hct MCV MCH MCHC RDW Plt Count Lymph % (Auto) [place] % (Auto) Lymph # [place] # Baso # Seg Neutrophils % Seg Neuts % (Manual) Lymphocytes % (Manual) Monocytes % (Manual) Eosinophils % (Manual) Basophils % (Manual) Nucleated RBC % Seg Neutrophils # Seg Neutrophils # Man Lymphocytes # (Manual) Monocytes # (Manual) Eosinophils # (Manual) Basophils # (Manual) PT INR Fibrinogen dRVVT Confirm Interp Factor V Activity POC ABG pH POC ABG pCO2 POC ABG pO2 ABG pO2 ABG HCO3 ABG Base Excess ABG Hemoglobin Oxyhemoglobin Sodium Potassium Chloride Carbon Dioxide BUN 72 H Creatinine 1.3 H Glucose 130 H POC Glucose 132 H 156 H Lactic Acid Calcium 8.2 L Phosphorus Magnesium Direct Bilirubin AST ALT Alkaline Phosphatase Lactate Dehydrogenase Troponin T C-Reactive Protein Total Protein Albumin Prealbumin Triglycerides Cholesterol LDL Cholesterol Direct HDL Cholesterol Urine pH Urine WBC (Auto) Urine Creatinine Urine Total Protein Fluid Total Protein Vancomycin Trough Rheumatoid Factor Complement C4 Miscellaneous Test Crossmatch 12/24/16 12/25/16 12/25/16 17:53 00:23 05:45 WBC RBC Hgb Hct MCV MCH MCHC RDW Plt Count Lymph % (Auto) [place] % (Auto) Lymph # [place] # Baso # Seg Neutrophils % Seg Neuts % (Manual) Lymphocytes % (Manual) Monocytes % (Manual) Eosinophils % (Manual) Basophils % (Manual) Nucleated RBC % Seg Neutrophils # Seg Neutrophils # Man Lymphocytes # (Manual) Monocytes # (Manual) Eosinophils # (Manual) Basophils # (Manual) PT INR Fibrinogen dRVVT Confirm Interp Factor V Activity POC ABG pH POC ABG pCO2 POC ABG pO2 ABG pO2 ABG HCO3 ABG Base Excess ABG Hemoglobin Oxyhemoglobin Sodium 146 H Potassium Chloride Carbon Dioxide BUN 51 H Creatinine Glucose 109 H POC Glucose 169 H 117 H Lactic Acid Calcium Phosphorus Magnesium Direct Bilirubin AST ALT Alkaline Phosphatase Lactate Dehydrogenase Troponin T C-Reactive Protein Total Protein Albumin Prealbumin Triglycerides Cholesterol LDL Cholesterol Direct HDL Cholesterol Urine pH Urine WBC (Auto) Urine Creatinine Urine Total Protein Fluid Total Protein Vancomycin Trough Rheumatoid Factor Complement C4 Miscellaneous Test Crossmatch 12/25/16 12/25/16 12/25/16 06:43 11:29 17:14 WBC RBC Hgb Hct MCV MCH MCHC RDW Plt Count Lymph % (Auto) [place] % (Auto) Lymph # [place] # Baso # Seg Neutrophils % Seg Neuts % (Manual) Lymphocytes % (Manual) Monocytes % (Manual) Eosinophils % (Manual) Basophils % (Manual) Nucleated RBC % Seg Neutrophils # Seg Neutrophils # Man Lymphocytes # (Manual) Monocytes # (Manual) Eosinophils # (Manual) Basophils # (Manual) PT INR Fibrinogen dRVVT Confirm Interp Factor V Activity POC ABG pH POC ABG pCO2 POC ABG pO2 ABG pO2 ABG HCO3 ABG Base Excess ABG Hemoglobin Oxyhemoglobin Sodium Potassium Chloride Carbon Dioxide BUN Creatinine Glucose POC Glucose 117 H 128 H 120 H Lactic Acid Calcium Phosphorus Magnesium Direct Bilirubin AST ALT Alkaline Phosphatase Lactate Dehydrogenase Troponin T C-Reactive Protein Total Protein Albumin Prealbumin Triglycerides Cholesterol LDL Cholesterol Direct HDL Cholesterol Urine pH Urine WBC (Auto) Urine Creatinine Urine Total Protein Fluid Total Protein Vancomycin Trough Rheumatoid Factor Complement C4 Miscellaneous Test Crossmatch 12/25/16 12/26/16 12/26/16 23:54 05:40 05:50 WBC 16.2 H RBC 2.32 L Hgb 6.2 L Hct 20.1 L MCV MCH 27 L MCHC RDW 18.6 H Plt Count Lymph % (Auto) [place] % (Auto) Lymph # [place] # Baso # Seg Neutrophils % Seg Neuts % (Manual) Lymphocytes % (Manual) Monocytes % (Manual) Eosinophils % (Manual) Basophils % (Manual) Nucleated RBC % Seg Neutrophils # Seg Neutrophils # Man Lymphocytes # (Manual) Monocytes # (Manual) Eosinophils # (Manual) Basophils # (Manual) PT INR Fibrinogen dRVVT Confirm Interp Factor V Activity POC ABG pH POC ABG pCO2 POC ABG pO2 ABG pO2 ABG HCO3 ABG Base Excess ABG Hemoglobin Oxyhemoglobin Sodium Potassium Chloride Carbon Dioxide BUN Creatinine Glucose POC Glucose 126 H 132 H Lactic Acid Calcium Phosphorus Magnesium Direct Bilirubin AST ALT Alkaline Phosphatase Lactate Dehydrogenase Troponin T C-Reactive Protein Total Protein Albumin Prealbumin Triglycerides Cholesterol LDL Cholesterol Direct HDL Cholesterol Urine pH Urine WBC (Auto) Urine Creatinine Urine Total Protein Fluid Total Protein Vancomycin Trough Rheumatoid Factor Complement C4 Miscellaneous Test Crossmatch 12/26/16 12/26/16 12/26/16 05:50 12:17 12:33 WBC RBC Hgb Hct MCV MCH MCHC RDW Plt Count Lymph % (Auto) [place] % (Auto) Lymph # [place] # Baso # Seg Neutrophils % Seg Neuts % (Manual) Lymphocytes % (Manual) Monocytes % (Manual) Eosinophils % (Manual) Basophils % (Manual) Nucleated RBC % Seg Neutrophils # Seg Neutrophils # Man Lymphocytes # (Manual) Monocytes # (Manual) Eosinophils # (Manual) Basophils # (Manual) PT INR Fibrinogen dRVVT Confirm Interp Factor V Activity POC ABG pH POC ABG pCO2 POC ABG pO2 ABG pO2 ABG HCO3 ABG Base Excess ABG Hemoglobin Oxyhemoglobin Sodium Potassium Chloride Carbon Dioxide BUN 73 H Creatinine 1.3 H Glucose 113 H POC Glucose 117 H Lactic Acid Calcium Phosphorus Magnesium Direct Bilirubin AST ALT Alkaline Phosphatase Lactate Dehydrogenase Troponin T C-Reactive Protein Total Protein Albumin Prealbumin Triglycerides Cholesterol LDL Cholesterol Direct HDL Cholesterol Urine pH Urine WBC (Auto) Urine Creatinine Urine Total Protein Fluid Total Protein Vancomycin Trough Rheumatoid Factor Complement C4 Miscellaneous Test Crossmatch See Detail 12/26/16 12/26/16 12/27/16 20:00 23:21 05:00 WBC RBC Hgb 8.4 L Hct 26.3 L D MCV MCH MCHC RDW Plt Count Lymph % (Auto) [place] % (Auto) Lymph # [place] # Baso # Seg Neutrophils % Seg Neuts % (Manual) Lymphocytes % (Manual) Monocytes % (Manual) Eosinophils % (Manual) Basophils % (Manual) Nucleated RBC % Seg Neutrophils # Seg Neutrophils # Man Lymphocytes # (Manual) Monocytes # (Manual) Eosinophils # (Manual) Basophils # (Manual) PT INR Fibrinogen dRVVT Confirm Interp Factor V Activity POC ABG pH POC ABG pCO2 POC ABG pO2 ABG pO2 ABG HCO3 ABG Base Excess ABG Hemoglobin Oxyhemoglobin Sodium Potassium Chloride Carbon Dioxide BUN 85 H Creatinine 1.6 H Glucose 118 H POC Glucose 124 H Lactic Acid Calcium Phosphorus 4.80 H Magnesium Direct Bilirubin AST ALT Alkaline Phosphatase Lactate Dehydrogenase Troponin T C-Reactive Protein Total Protein Albumin Prealbumin Triglycerides Cholesterol LDL Cholesterol Direct HDL Cholesterol Urine pH Urine WBC (Auto) Urine Creatinine Urine Total Protein Fluid Total Protein Vancomycin Trough Rheumatoid Factor Complement C4 Miscellaneous Test Crossmatch 12/27/16 12/27/16 12/27/16 05:00 05:35 12:24 WBC RBC Hgb 7.6 L Hct 22.8 L MCV MCH MCHC RDW Plt Count Lymph % (Auto) [place] % (Auto) Lymph # [place] # Baso # Seg Neutrophils % Seg Neuts % (Manual) Lymphocytes % (Manual) Monocytes % (Manual) Eosinophils % (Manual) Basophils % (Manual) Nucleated RBC % Seg Neutrophils # Seg Neutrophils # Man Lymphocytes # (Manual) Monocytes # (Manual) Eosinophils # (Manual) Basophils # (Manual) PT INR Fibrinogen dRVVT Confirm Interp Factor V Activity POC ABG pH POC ABG pCO2 POC ABG pO2 ABG pO2 ABG HCO3 ABG Base Excess ABG Hemoglobin Oxyhemoglobin Sodium Potassium Chloride Carbon Dioxide BUN Creatinine Glucose POC Glucose 115 H 131 H Lactic Acid Calcium Phosphorus Magnesium Direct Bilirubin AST ALT Alkaline Phosphatase Lactate Dehydrogenase Troponin T C-Reactive Protein Total Protein Albumin Prealbumin Triglycerides Cholesterol LDL Cholesterol Direct HDL Cholesterol Urine pH Urine WBC (Auto) Urine Creatinine Urine Total Protein Fluid Total Protein Vancomycin Trough Rheumatoid Factor Complement C4 Miscellaneous Test Crossmatch 12/27/16 12/28/16 12/28/16 17:16 00:18 04:00 WBC RBC Hgb Hct MCV MCH MCHC RDW Plt Count Lymph % (Auto) [place] % (Auto) Lymph # [place] # Baso # Seg Neutrophils % Seg Neuts % (Manual) Lymphocytes % (Manual) Monocytes % (Manual) Eosinophils % (Manual) Basophils % (Manual) Nucleated RBC % Seg Neutrophils # Seg Neutrophils # Man Lymphocytes # (Manual) Monocytes # (Manual) Eosinophils # (Manual) Basophils # (Manual) PT INR Fibrinogen dRVVT Confirm Interp Factor V Activity POC ABG pH POC ABG pCO2 POC ABG pO2 ABG pO2 ABG HCO3 ABG Base Excess ABG Hemoglobin Oxyhemoglobin Sodium Potassium 3.5 L Chloride Carbon Dioxide BUN 57 H Creatinine Glucose 118 H POC Glucose 136 H 120 H Lactic Acid Calcium 8.3 L Phosphorus Magnesium Direct Bilirubin AST ALT Alkaline Phosphatase Lactate Dehydrogenase Troponin T C-Reactive Protein Total Protein Albumin Prealbumin Triglycerides Cholesterol LDL Cholesterol Direct HDL Cholesterol Urine pH Urine WBC (Auto) Urine Creatinine Urine Total Protein Fluid Total Protein Vancomycin Trough Rheumatoid Factor Complement C4 Miscellaneous Test Crossmatch 12/28/16 12/28/16 12/28/16 04:00 05:11 08:30 WBC 17.0 H RBC 2.58 L Hgb 7.1 L Hct 22.0 L MCV MCH MCHC RDW 17.6 H Plt Count Lymph % (Auto) 12.2 L [place] % (Auto) Lymph # [place] # 1.1 H Baso # Seg Neutrophils % 80.5 H Seg Neuts % (Manual) Lymphocytes % (Manual) Monocytes % (Manual) Eosinophils % (Manual) Basophils % (Manual) Nucleated RBC % Seg Neutrophils # 13.7 H Seg Neutrophils # Man Lymphocytes # (Manual) Monocytes # (Manual) Eosinophils # (Manual) Basophils # (Manual) PT 16.1 H INR 1.23 H Fibrinogen dRVVT Confirm Interp Factor V Activity POC ABG pH POC ABG pCO2 POC ABG pO2 ABG pO2 ABG HCO3 ABG Base Excess ABG Hemoglobin Oxyhemoglobin Sodium Potassium Chloride Carbon Dioxide BUN Creatinine Glucose POC Glucose 122 H Lactic Acid Calcium Phosphorus Magnesium Direct Bilirubin AST ALT Alkaline Phosphatase Lactate Dehydrogenase Troponin T C-Reactive Protein Total Protein Albumin Prealbumin Triglycerides Cholesterol LDL Cholesterol Direct HDL Cholesterol Urine pH Urine WBC (Auto) Urine Creatinine Urine Total Protein Fluid Total Protein Vancomycin Trough Rheumatoid Factor Complement C4 Miscellaneous Test Crossmatch 12/28/16 12/28/16 12/28/16 12:27 16:32 23:46 WBC RBC Hgb Hct MCV MCH MCHC RDW Plt Count Lymph % (Auto) [place] % (Auto) Lymph # [place] # Baso # Seg Neutrophils % Seg Neuts % (Manual) Lymphocytes % (Manual) Monocytes % (Manual) Eosinophils % (Manual) Basophils % (Manual) Nucleated RBC % Seg Neutrophils # Seg Neutrophils # Man Lymphocytes # (Manual) Monocytes # (Manual) Eosinophils # (Manual) Basophils # (Manual) PT INR Fibrinogen dRVVT Confirm Interp Factor V Activity POC ABG pH POC ABG pCO2 POC ABG pO2 ABG pO2 ABG HCO3 ABG Base Excess ABG Hemoglobin Oxyhemoglobin Sodium Potassium Chloride Carbon Dioxide BUN Creatinine Glucose POC Glucose 127 H 117 H 108 H Lactic Acid Calcium Phosphorus Magnesium Direct Bilirubin AST ALT Alkaline Phosphatase Lactate Dehydrogenase Troponin T C-Reactive Protein Total Protein Albumin Prealbumin Triglycerides Cholesterol LDL Cholesterol Direct HDL Cholesterol Urine pH Urine WBC (Auto) Urine Creatinine Urine Total Protein Fluid Total Protein Vancomycin Trough Rheumatoid Factor Complement C4 Miscellaneous Test Crossmatch 12/29/16 12/29/16 12/29/16 05:15 05:15 05:32 WBC RBC Hgb Hct MCV MCH MCHC RDW Plt Count Lymph % (Auto) [place] % (Auto) Lymph # [place] # Baso # Seg Neutrophils % Seg Neuts % (Manual) Lymphocytes % (Manual) Monocytes % (Manual) Eosinophils % (Manual) Basophils % (Manual) Nucleated RBC % Seg Neutrophils # Seg Neutrophils # Man Lymphocytes # (Manual) Monocytes # (Manual) Eosinophils # (Manual) Basophils # (Manual) PT INR Fibrinogen dRVVT Confirm Interp Factor V Activity POC ABG pH POC ABG pCO2 POC ABG pO2 ABG pO2 ABG HCO3 ABG Base Excess ABG Hemoglobin Oxyhemoglobin Sodium Potassium Chloride Carbon Dioxide BUN 74 H Creatinine 1.6 H Glucose 111 H POC Glucose 123 H Lactic Acid Calcium Phosphorus Magnesium Direct Bilirubin AST ALT Alkaline Phosphatase Lactate Dehydrogenase Troponin T C-Reactive Protein Total Protein Albumin Prealbumin 0.110 L Triglycerides Cholesterol LDL Cholesterol Direct HDL Cholesterol Urine pH Urine WBC (Auto) Urine Creatinine Urine Total Protein Fluid Total Protein Vancomycin Trough Rheumatoid Factor Complement C4 Miscellaneous Test Crossmatch 12/29/16 12/29/16 12/29/16 11:43 13:45 14:00 WBC 13.8 H RBC 2.26 L Hgb 6.3 L Hct 20.4 L MCV MCH MCHC RDW 18.3 H Plt Count Lymph % (Auto) [place] % (Auto) Lymph # [place] # 0.9 H Baso # Seg Neutrophils % 78.6 H Seg Neuts % (Manual) Lymphocytes % (Manual) Monocytes % (Manual) Eosinophils % (Manual) Basophils % (Manual) Nucleated RBC % Seg Neutrophils # 10.8 H Seg Neutrophils # Man Lymphocytes # (Manual) Monocytes # (Manual) Eosinophils # (Manual) Basophils # (Manual) PT INR Fibrinogen dRVVT Confirm Interp Factor V Activity POC ABG pH POC ABG pCO2 POC ABG pO2 ABG pO2 ABG HCO3 ABG Base Excess ABG Hemoglobin Oxyhemoglobin Sodium Potassium Chloride Carbon Dioxide BUN Creatinine Glucose POC Glucose 133 H Lactic Acid Calcium Phosphorus Magnesium Direct Bilirubin AST ALT Alkaline Phosphatase Lactate Dehydrogenase Troponin T C-Reactive Protein Total Protein Albumin Prealbumin Triglycerides Cholesterol LDL Cholesterol Direct HDL Cholesterol Urine pH Urine WBC (Auto) Urine Creatinine Urine Total Protein Fluid Total Protein Vancomycin Trough Rheumatoid Factor Complement C4 Miscellaneous Test Crossmatch See Detail 12/29/16 12/29/16 12/29/16 17:03 23:15 23:22 WBC RBC Hgb 7.3 L Hct 22.3 L MCV MCH MCHC RDW Plt Count Lymph % (Auto) [place] % (Auto) Lymph # [place] # Baso # Seg Neutrophils % Seg Neuts % (Manual) Lymphocytes % (Manual) Monocytes % (Manual) Eosinophils % (Manual) Basophils % (Manual) Nucleated RBC % Seg Neutrophils # Seg Neutrophils # Man Lymphocytes # (Manual) Monocytes # (Manual) Eosinophils # (Manual) Basophils # (Manual) PT INR Fibrinogen dRVVT Confirm Interp Factor V Activity POC ABG pH POC ABG pCO2 POC ABG pO2 ABG pO2 ABG HCO3 ABG Base Excess ABG Hemoglobin Oxyhemoglobin Sodium Potassium Chloride Carbon Dioxide BUN Creatinine Glucose POC Glucose 139 H 120 H Lactic Acid Calcium Phosphorus Magnesium Direct Bilirubin AST ALT Alkaline Phosphatase Lactate Dehydrogenase Troponin T C-Reactive Protein Total Protein Albumin Prealbumin Triglycerides Cholesterol LDL Cholesterol Direct HDL Cholesterol Urine pH Urine WBC (Auto) Urine Creatinine Urine Total Protein Fluid Total Protein Vancomycin Trough Rheumatoid Factor Complement C4 Miscellaneous Test Crossmatch 12/30/16 12/30/1617 04:20 04:20 05:43 WBC 15.6 H RBC 2.81 L Hgb 8.0 L Hct 24.0 L MCV MCH MCHC RDW 16.9 H Plt Count Lymph % (Auto) [place] % (Auto) Lymph # [place] # 1.0 H Baso # Seg Neutrophils % 76.2 H Seg Neuts % (Manual) Lymphocytes % (Manual) Monocytes % (Manual) Eosinophils % (Manual) Basophils % (Manual) Nucleated RBC % Seg Neutrophils # 11.9 H Seg Neutrophils # Man Lymphocytes # (Manual) Monocytes # (Manual) Eosinophils # (Manual) Basophils # (Manual) PT INR Fibrinogen dRVVT Confirm Interp Factor V Activity POC ABG pH POC ABG pCO2 POC ABG pO2 ABG pO2 ABG HCO3 ABG Base Excess ABG Hemoglobin Oxyhemoglobin Sodium Potassium Chloride Carbon Dioxide BUN 87 H Creatinine 1.8 H Glucose 119 H POC Glucose 115 H Lactic Acid Calcium Phosphorus Magnesium Direct Bilirubin AST ALT Alkaline Phosphatase Lactate Dehydrogenase Troponin T C-Reactive Protein Total Protein Albumin Prealbumin Triglycerides Cholesterol LDL Cholesterol Direct HDL Cholesterol Urine pH Urine WBC (Auto) Urine Creatinine Urine Total Protein Fluid Total Protein Vancomycin Trough Rheumatoid Factor Complement C4 Miscellaneous Test Crossmatch 12/30/16 12/30/16 12/31/16 17:27 23:21 04:00 WBC RBC Hgb Hct MCV MCH MCHC RDW Plt Count Lymph % (Auto) [place] % (Auto) Lymph # [place] # Baso # Seg Neutrophils % Seg Neuts % (Manual) Lymphocytes % (Manual) Monocytes % (Manual) Eosinophils % (Manual) Basophils % (Manual) Nucleated RBC % Seg Neutrophils # Seg Neutrophils # Man Lymphocytes # (Manual) Monocytes # (Manual) Eosinophils # (Manual) Basophils # (Manual) PT INR Fibrinogen dRVVT Confirm Interp Factor V Activity POC ABG pH POC ABG pCO2 POC ABG pO2 ABG pO2 ABG HCO3 ABG Base Excess ABG Hemoglobin Oxyhemoglobin Sodium Potassium Chloride Carbon Dioxide BUN 59 H Creatinine Glucose 298 H POC Glucose 144 H 125 H Lactic Acid Calcium Phosphorus Magnesium Direct Bilirubin AST ALT Alkaline Phosphatase Lactate Dehydrogenase Troponin T C-Reactive Protein Total Protein Albumin Prealbumin Triglycerides Cholesterol LDL Cholesterol Direct HDL Cholesterol Urine pH Urine WBC (Auto) Urine Creatinine Urine Total Protein Fluid Total Protein Vancomycin Trough Rheumatoid Factor Complement C4 Miscellaneous Test Crossmatch 12/31/16 12/31/16 12/31/16 05:11 12:18 18:17 WBC RBC Hgb Hct MCV MCH MCHC RDW Plt Count Lymph % (Auto) [place] % (Auto) Lymph # [place] # Baso # Seg Neutrophils % Seg Neuts % (Manual) Lymphocytes % (Manual) Monocytes % (Manual) Eosinophils % (Manual) Basophils % (Manual) Nucleated RBC % Seg Neutrophils # Seg Neutrophils # Man Lymphocytes # (Manual) Monocytes # (Manual) Eosinophils # (Manual) Basophils # (Manual) PT INR Fibrinogen dRVVT Confirm Interp Factor V Activity POC ABG pH POC ABG pCO2 POC ABG pO2 ABG pO2 ABG HCO3 ABG Base Excess ABG Hemoglobin Oxyhemoglobin Sodium Potassium Chloride Carbon Dioxide BUN Creatinine Glucose POC Glucose 167 H 125 H 133 H Lactic Acid Calcium Phosphorus Magnesium Direct Bilirubin AST ALT Alkaline Phosphatase Lactate Dehydrogenase Troponin T C-Reactive Protein Total Protein Albumin Prealbumin Triglycerides Cholesterol LDL Cholesterol Direct HDL Cholesterol Urine pH Urine WBC (Auto) Urine Creatinine Urine Total Protein Fluid Total Protein Vancomycin Trough Rheumatoid Factor Complement C4 Miscellaneous Test Crossmatch 12/31/16 01/01/17 01/01/17 23:55 05:00 05:12 WBC RBC Hgb Hct MCV MCH MCHC RDW Plt Count Lymph % (Auto) [place] % (Auto) Lymph # [place] # Baso # Seg Neutrophils % Seg Neuts % (Manual) Lymphocytes % (Manual) Monocytes % (Manual) Eosinophils % (Manual) Basophils % (Manual) Nucleated RBC % Seg Neutrophils # Seg Neutrophils # Man Lymphocytes # (Manual) Monocytes # (Manual) Eosinophils # (Manual) Basophils # (Manual) PT INR Fibrinogen dRVVT Confirm Interp Factor V Activity POC ABG pH POC ABG pCO2 POC ABG pO2 ABG pO2 ABG HCO3 ABG Base Excess ABG Hemoglobin Oxyhemoglobin Sodium Potassium Chloride Carbon Dioxide BUN 76 H Creatinine 1.5 H Glucose 109 H POC Glucose 129 H 129 H Lactic Acid Calcium Phosphorus Magnesium Direct Bilirubin AST ALT Alkaline Phosphatase 536 H Lactate Dehydrogenase Troponin T C-Reactive Protein Total Protein Albumin 1.5 L Prealbumin Triglycerides Cholesterol LDL Cholesterol Direct HDL Cholesterol Urine pH Urine WBC (Auto) Urine Creatinine Urine Total Protein Fluid Total Protein Vancomycin Trough Rheumatoid Factor Complement C4 Miscellaneous Test Crossmatch 01/01/17 01/01/17 01/01/17 12:25 17:01 23:32 WBC RBC Hgb Hct MCV MCH MCHC RDW Plt Count Lymph % (Auto) [place] % (Auto) Lymph # [place] # Baso # Seg Neutrophils % Seg Neuts % (Manual) Lymphocytes % (Manual) Monocytes % (Manual) Eosinophils % (Manual) Basophils % (Manual) Nucleated RBC % Seg Neutrophils # Seg Neutrophils # Man Lymphocytes # (Manual) Monocytes # (Manual) Eosinophils # (Manual) Basophils # (Manual) PT INR Fibrinogen dRVVT Confirm Interp Factor V Activity POC ABG pH POC ABG pCO2 POC ABG pO2 ABG pO2 ABG HCO3 ABG Base Excess ABG Hemoglobin Oxyhemoglobin Sodium Potassium Chloride Carbon Dioxide BUN Creatinine Glucose POC Glucose 140 H 142 H 112 H Lactic Acid Calcium Phosphorus Magnesium Direct Bilirubin AST ALT Alkaline Phosphatase Lactate Dehydrogenase Troponin T C-Reactive Protein Total Protein Albumin Prealbumin Triglycerides Cholesterol LDL Cholesterol Direct HDL Cholesterol Urine pH Urine WBC (Auto) Urine Creatinine Urine Total Protein Fluid Total Protein Vancomycin Trough Rheumatoid Factor Complement C4 Miscellaneous Test Crossmatch 01/02/17 01/02/17 01/02/17 04:56 06:00 11:37 WBC RBC Hgb Hct MCV MCH MCHC RDW Plt Count Lymph % (Auto) [place] % (Auto) Lymph # [place] # Baso # Seg Neutrophils % Seg Neuts % (Manual) Lymphocytes % (Manual) Monocytes % (Manual) Eosinophils % (Manual) Basophils % (Manual) Nucleated RBC % Seg Neutrophils # Seg Neutrophils # Man Lymphocytes # (Manual) Monocytes # (Manual) Eosinophils # (Manual) Basophils # (Manual) PT INR Fibrinogen dRVVT Confirm Interp Factor V Activity POC ABG pH POC ABG pCO2 POC ABG pO2 ABG pO2 ABG HCO3 ABG Base Excess ABG Hemoglobin Oxyhemoglobin Sodium Potassium Chloride Carbon Dioxide BUN 88 H Creatinine 1.7 H Glucose 113 H POC Glucose 136 H 200 H Lactic Acid Calcium Phosphorus Magnesium Direct Bilirubin AST ALT Alkaline Phosphatase Lactate Dehydrogenase Troponin T C-Reactive Protein Total Protein Albumin Prealbumin Triglycerides Cholesterol LDL Cholesterol Direct HDL Cholesterol Urine pH Urine WBC (Auto) Urine Creatinine Urine Total Protein Fluid Total Protein Vancomycin Trough Rheumatoid Factor Complement C4 Miscellaneous Test Crossmatch 01/02/17 01/02/17 01/03/17 17:42 22:52 04:54 WBC RBC Hgb Hct MCV MCH MCHC RDW Plt Count Lymph % (Auto) [place] % (Auto) Lymph # [place] # Baso # Seg Neutrophils % Seg Neuts % (Manual) Lymphocytes % (Manual) Monocytes % (Manual) Eosinophils % (Manual) Basophils % (Manual) Nucleated RBC % Seg Neutrophils # Seg Neutrophils # Man Lymphocytes # (Manual) Monocytes # (Manual) Eosinophils # (Manual) Basophils # (Manual) PT INR Fibrinogen dRVVT Confirm Interp Factor V Activity POC ABG pH POC ABG pCO2 POC ABG pO2 ABG pO2 ABG HCO3 ABG Base Excess ABG Hemoglobin Oxyhemoglobin Sodium Potassium Chloride Carbon Dioxide BUN Creatinine Glucose POC Glucose 112 H 133 H 111 H Lactic Acid Calcium Phosphorus Magnesium Direct Bilirubin AST ALT Alkaline Phosphatase Lactate Dehydrogenase Troponin T C-Reactive Protein Total Protein Albumin Prealbumin Triglycerides Cholesterol LDL Cholesterol Direct HDL Cholesterol Urine pH Urine WBC (Auto) Urine Creatinine Urine Total Protein Fluid Total Protein Vancomycin Trough Rheumatoid Factor Complement C4 Miscellaneous Test Crossmatch 01/03/17 01/03/17 01/03/17 05:00 05:00 14:02 WBC 11.2 H RBC 2.56 L Hgb 7.2 L Hct 22.3 L MCV MCH MCHC RDW 17.3 H Plt Count Lymph % (Auto) [place] % (Auto) 10.0 H Lymph # [place] # 1.1 H Baso # Seg Neutrophils % 70.5 H Seg Neuts % (Manual) Lymphocytes % (Manual) Monocytes % (Manual) Eosinophils % (Manual) Basophils % (Manual) Nucleated RBC % Seg Neutrophils # 7.9 H Seg Neutrophils # Man Lymphocytes # (Manual) Monocytes # (Manual) Eosinophils # (Manual) Basophils # (Manual) PT INR Fibrinogen dRVVT Confirm Interp Factor V Activity POC ABG pH POC ABG pCO2 POC ABG pO2 ABG pO2 ABG HCO3 ABG Base Excess ABG Hemoglobin Oxyhemoglobin Sodium Potassium Chloride Carbon Dioxide BUN 60 H Creatinine 1.3 H Glucose 110 H POC Glucose 119 H Lactic Acid Calcium Phosphorus Magnesium Direct Bilirubin AST ALT Alkaline Phosphatase Lactate Dehydrogenase Troponin T C-Reactive Protein Total Protein Albumin Prealbumin Triglycerides Cholesterol LDL Cholesterol Direct HDL Cholesterol Urine pH Urine WBC (Auto) Urine Creatinine Urine Total Protein Fluid Total Protein Vancomycin Trough Rheumatoid Factor Complement C4 Miscellaneous Test Crossmatch 01/03/17 01/03/17 01/04/17 18:13 23:40 05:57 WBC RBC Hgb Hct MCV MCH MCHC RDW Plt Count Lymph % (Auto) [place] % (Auto) Lymph # [place] # Baso # Seg Neutrophils % Seg Neuts % (Manual) Lymphocytes % (Manual) Monocytes % (Manual) Eosinophils % (Manual) Basophils % (Manual) Nucleated RBC % Seg Neutrophils # Seg Neutrophils # Man Lymphocytes # (Manual) Monocytes # (Manual) Eosinophils # (Manual) Basophils # (Manual) PT INR Fibrinogen dRVVT Confirm Interp Factor V Activity POC ABG pH POC ABG pCO2 POC ABG pO2 ABG pO2 ABG HCO3 ABG Base Excess ABG Hemoglobin Oxyhemoglobin Sodium Potassium Chloride Carbon Dioxide BUN Creatinine Glucose POC Glucose 107 H 129 H 111 H Lactic Acid Calcium Phosphorus Magnesium Direct Bilirubin AST ALT Alkaline Phosphatase Lactate Dehydrogenase Troponin T C-Reactive Protein Total Protein Albumin Prealbumin Triglycerides Cholesterol LDL Cholesterol Direct HDL Cholesterol Urine pH Urine WBC (Auto) Urine Creatinine Urine Total Protein Fluid Total Protein Vancomycin Trough Rheumatoid Factor Complement C4 Miscellaneous Test Crossmatch 01/04/17 01/04/17 01/04/17 12:46 15:27 17:11 WBC RBC Hgb Hct MCV MCH MCHC RDW Plt Count Lymph % (Auto) [place] % (Auto) Lymph # [place] # Baso # Seg Neutrophils % Seg Neuts % (Manual) Lymphocytes % (Manual) Monocytes % (Manual) Eosinophils % (Manual) Basophils % (Manual) Nucleated RBC % Seg Neutrophils # Seg Neutrophils # Man Lymphocytes # (Manual) Monocytes # (Manual) Eosinophils # (Manual) Basophils # (Manual) PT INR Fibrinogen dRVVT Confirm Interp Factor V Activity POC ABG pH POC ABG pCO2 POC ABG pO2 ABG pO2 ABG HCO3 ABG Base Excess ABG Hemoglobin Oxyhemoglobin Sodium Potassium Chloride Carbon Dioxide BUN 43 H Creatinine Glucose 124 H POC Glucose 159 H 125 H Lactic Acid Calcium 8.0 L Phosphorus 2.10 L Magnesium Direct Bilirubin AST ALT Alkaline Phosphatase Lactate Dehydrogenase Troponin T C-Reactive Protein Total Protein Albumin Prealbumin Triglycerides Cholesterol LDL Cholesterol Direct HDL Cholesterol Urine pH Urine WBC (Auto) Urine Creatinine Urine Total Protein Fluid Total Protein Vancomycin Trough Rheumatoid Factor Complement C4 Miscellaneous Test Crossmatch 01/04/17 01/05/17 01/05/17 23:31 04:00 05:46 WBC RBC Hgb Hct MCV MCH MCHC RDW Plt Count Lymph % (Auto) [place] % (Auto) Lymph # [place] # Baso # Seg Neutrophils % Seg Neuts % (Manual) Lymphocytes % (Manual) Monocytes % (Manual) Eosinophils % (Manual) Basophils % (Manual) Nucleated RBC % Seg Neutrophils # Seg Neutrophils # Man Lymphocytes # (Manual) Monocytes # (Manual) Eosinophils # (Manual) Basophils # (Manual) PT INR Fibrinogen dRVVT Confirm Interp Factor V Activity POC ABG pH POC ABG pCO2 POC ABG pO2 ABG pO2 ABG HCO3 ABG Base Excess ABG Hemoglobin Oxyhemoglobin Sodium Potassium Chloride Carbon Dioxide BUN 52 H Creatinine 1.3 H Glucose 113 H POC Glucose 123 H 118 H Lactic Acid Calcium Phosphorus 2.40 L Magnesium Direct Bilirubin AST ALT Alkaline Phosphatase Lactate Dehydrogenase Troponin T C-Reactive Protein Total Protein Albumin Prealbumin Triglycerides Cholesterol LDL Cholesterol Direct HDL Cholesterol Urine pH Urine WBC (Auto) Urine Creatinine Urine Total Protein Fluid Total Protein Vancomycin Trough Rheumatoid Factor Complement C4 Miscellaneous Test Crossmatch 01/05/17 01/05/17 01/05/17 11:41 17:48 23:27 WBC RBC Hgb Hct MCV MCH MCHC RDW Plt Count Lymph % (Auto) [place] % (Auto) Lymph # [place] # Baso # Seg Neutrophils % Seg Neuts % (Manual) Lymphocytes % (Manual) Monocytes % (Manual) Eosinophils % (Manual) Basophils % (Manual) Nucleated RBC % Seg Neutrophils # Seg Neutrophils # Man Lymphocytes # (Manual) Monocytes # (Manual) Eosinophils # (Manual) Basophils # (Manual) PT INR Fibrinogen dRVVT Confirm Interp Factor V Activity POC ABG pH POC ABG pCO2 POC ABG pO2 ABG pO2 ABG HCO3 ABG Base Excess ABG Hemoglobin Oxyhemoglobin Sodium Potassium Chloride Carbon Dioxide BUN Creatinine Glucose POC Glucose 163 H 142 H 155 H Lactic Acid Calcium Phosphorus Magnesium Direct Bilirubin AST ALT Alkaline Phosphatase Lactate Dehydrogenase Troponin T C-Reactive Protein Total Protein Albumin Prealbumin Triglycerides Cholesterol LDL Cholesterol Direct HDL Cholesterol Urine pH Urine WBC (Auto) Urine Creatinine Urine Total Protein Fluid Total Protein Vancomycin Trough Rheumatoid Factor Complement C4 Miscellaneous Test Crossmatch 01/06/17 01/06/17 01/06/17 05:20 07:35 11:18 WBC RBC Hgb Hct MCV MCH MCHC RDW Plt Count Lymph % (Auto) [place] % (Auto) Lymph # [place] # Baso # Seg Neutrophils % Seg Neuts % (Manual) Lymphocytes % (Manual) Monocytes % (Manual) Eosinophils % (Manual) Basophils % (Manual) Nucleated RBC % Seg Neutrophils # Seg Neutrophils # Man Lymphocytes # (Manual) Monocytes # (Manual) Eosinophils # (Manual) Basophils # (Manual) PT INR Fibrinogen dRVVT Confirm Interp Factor V Activity POC ABG pH POC ABG pCO2 POC ABG pO2 ABG pO2 ABG HCO3 ABG Base Excess ABG Hemoglobin Oxyhemoglobin Sodium Potassium Chloride Carbon Dioxide BUN 74 H Creatinine 1.6 H Glucose 135 H POC Glucose 108 H 149 H Lactic Acid Calcium Phosphorus Magnesium Direct Bilirubin AST ALT Alkaline Phosphatase Lactate Dehydrogenase Troponin T C-Reactive Protein Total Protein Albumin Prealbumin Triglycerides Cholesterol LDL Cholesterol Direct HDL Cholesterol Urine pH Urine WBC (Auto) Urine Creatinine Urine Total Protein Fluid Total Protein Vancomycin Trough Rheumatoid Factor Complement C4 Miscellaneous Test Crossmatch 01/06/17 01/07/17 01/07/17 17:17 00:23 05:31 WBC RBC Hgb Hct MCV MCH MCHC RDW Plt Count Lymph % (Auto) [place] % (Auto) Lymph # [place] # Baso # Seg Neutrophils % Seg Neuts % (Manual) Lymphocytes % (Manual) Monocytes % (Manual) Eosinophils % (Manual) Basophils % (Manual) Nucleated RBC % Seg Neutrophils # Seg Neutrophils # Man Lymphocytes # (Manual) Monocytes # (Manual) Eosinophils # (Manual) Basophils # (Manual) PT INR Fibrinogen dRVVT Confirm Interp Factor V Activity POC ABG pH POC ABG pCO2 POC ABG pO2 ABG pO2 ABG HCO3 ABG Base Excess ABG Hemoglobin Oxyhemoglobin Sodium Potassium Chloride Carbon Dioxide BUN Creatinine Glucose POC Glucose 146 H 165 H 153 H Lactic Acid Calcium Phosphorus Magnesium Direct Bilirubin AST ALT Alkaline Phosphatase Lactate Dehydrogenase Troponin T C-Reactive Protein Total Protein Albumin Prealbumin Triglycerides Cholesterol LDL Cholesterol Direct HDL Cholesterol Urine pH Urine WBC (Auto) Urine Creatinine Urine Total Protein Fluid Total Protein Vancomycin Trough Rheumatoid Factor Complement C4 Miscellaneous Test Crossmatch 01/07/17 01/07/17 01/07/17 06:00 11:39 17:11 WBC RBC Hgb Hct MCV MCH MCHC RDW Plt Count Lymph % (Auto) [place] % (Auto) Lymph # [place] # Baso # Seg Neutrophils % Seg Neuts % (Manual) Lymphocytes % (Manual) Monocytes % (Manual) Eosinophils % (Manual) Basophils % (Manual) Nucleated RBC % Seg Neutrophils # Seg Neutrophils # Man Lymphocytes # (Manual) Monocytes # (Manual) Eosinophils # (Manual) Basophils # (Manual) PT INR Fibrinogen dRVVT Confirm Interp Factor V Activity POC ABG pH POC ABG pCO2 POC ABG pO2 ABG pO2 ABG HCO3 ABG Base Excess ABG Hemoglobin Oxyhemoglobin Sodium Potassium Chloride Carbon Dioxide BUN 42 H Creatinine Glucose 175 H POC Glucose 163 H 163 H Lactic Acid Calcium Phosphorus 2.40 L D Magnesium Direct Bilirubin AST ALT Alkaline Phosphatase Lactate Dehydrogenase Troponin T C-Reactive Protein Total Protein Albumin Prealbumin Triglycerides Cholesterol LDL Cholesterol Direct HDL Cholesterol Urine pH Urine WBC (Auto) Urine Creatinine Urine Total Protein Fluid Total Protein Vancomycin Trough Rheumatoid Factor Complement C4 Miscellaneous Test Crossmatch 01/07/17 01/08/17 01/08/17 23:40 05:00 05:00 WBC 27.4 H RBC 2.27 L Hgb 6.1 L Hct 20.4 L MCV MCH 27 L MCHC RDW 17.8 H Plt Count Lymph % (Auto) [place] % (Auto) Lymph # [place] # Baso # Seg Neutrophils % Seg Neuts % (Manual) Lymphocytes % (Manual) Monocytes % (Manual) Eosinophils % (Manual) Basophils % (Manual) Nucleated RBC % Seg Neutrophils # Seg Neutrophils # Man Lymphocytes # (Manual) Monocytes # (Manual) Eosinophils # (Manual) Basophils # (Manual) PT INR Fibrinogen dRVVT Confirm Interp Factor V Activity POC ABG pH POC ABG pCO2 POC ABG pO2 ABG pO2 ABG HCO3 ABG Base Excess ABG Hemoglobin Oxyhemoglobin Sodium Potassium Chloride Carbon Dioxide 16 L D BUN 62 H Creatinine 1.6 H D Glucose 103 H POC Glucose 135 H Lactic Acid Calcium Phosphorus Magnesium Direct Bilirubin AST ALT Alkaline Phosphatase Lactate Dehydrogenase Troponin T C-Reactive Protein Total Protein Albumin Prealbumin Triglycerides Cholesterol LDL Cholesterol Direct HDL Cholesterol Urine pH Urine WBC (Auto) Urine Creatinine Urine Total Protein Fluid Total Protein Vancomycin Trough Rheumatoid Factor Complement C4 Miscellaneous Test Crossmatch 01/08/17 01/08/17 01/08/17 05:25 10:37 10:37 WBC RBC Hgb Hct MCV MCH MCHC RDW Plt Count Lymph % (Auto) [place] % (Auto) Lymph # [place] # Baso # Seg Neutrophils % Seg Neuts % (Manual) Lymphocytes % (Manual) Monocytes % (Manual) Eosinophils % (Manual) Basophils % (Manual) Nucleated RBC % Seg Neutrophils # Seg Neutrophils # Man Lymphocytes # (Manual) Monocytes # (Manual) Eosinophils # (Manual) Basophils # (Manual) PT INR Fibrinogen dRVVT Confirm Interp Factor V Activity POC ABG pH POC ABG pCO2 POC ABG pO2 ABG pO2 ABG HCO3 ABG Base Excess ABG Hemoglobin Oxyhemoglobin Sodium Potassium Chloride Carbon Dioxide BUN Creatinine Glucose POC Glucose 106 H Lactic Acid Calcium Phosphorus Magnesium Direct Bilirubin AST ALT Alkaline Phosphatase Lactate Dehydrogenase Troponin T C-Reactive Protein 24.40 H Total Protein Albumin Prealbumin Triglycerides Cholesterol LDL Cholesterol Direct HDL Cholesterol Urine pH Urine WBC (Auto) Urine Creatinine Urine Total Protein Fluid Total Protein Vancomycin Trough Rheumatoid Factor Complement C4 Miscellaneous Test Crossmatch See Detail 01/08/17 01/08/17 01/08/17 10:37 11:33 15:15 WBC RBC Hgb Hct MCV MCH MCHC RDW Plt Count Lymph % (Auto) [place] % (Auto) Lymph # [place] # Baso # Seg Neutrophils % Seg Neuts % (Manual) Lymphocytes % (Manual) Monocytes % (Manual) Eosinophils % (Manual) Basophils % (Manual) Nucleated RBC % Seg Neutrophils # Seg Neutrophils # Man Lymphocytes # (Manual) Monocytes # (Manual) Eosinophils # (Manual) Basophils # (Manual) PT INR Fibrinogen dRVVT Confirm Interp Factor V Activity POC ABG pH POC ABG pCO2 POC ABG pO2 ABG pO2 ABG HCO3 ABG Base Excess ABG Hemoglobin Oxyhemoglobin Sodium Potassium Chloride Carbon Dioxide BUN Creatinine Glucose POC Glucose 157 H Lactic Acid 9.70 H* 9.10 H* Calcium Phosphorus Magnesium Direct Bilirubin AST ALT Alkaline Phosphatase Lactate Dehydrogenase Troponin T C-Reactive Protein Total Protein Albumin Prealbumin Triglycerides Cholesterol LDL Cholesterol Direct HDL Cholesterol Urine pH Urine WBC (Auto) Urine Creatinine Urine Total Protein Fluid Total Protein Vancomycin Trough Rheumatoid Factor Complement C4 Miscellaneous Test Crossmatch 01/08/17 01/08/17 01/09/17 17:19 23:12 04:40 WBC RBC Hgb Hct MCV MCH MCHC RDW Plt Count Lymph % (Auto) [place] % (Auto) Lymph # [place] # Baso # Seg Neutrophils % Seg Neuts % (Manual) Lymphocytes % (Manual) Monocytes % (Manual) Eosinophils % (Manual) Basophils % (Manual) Nucleated RBC % Seg Neutrophils # Seg Neutrophils # Man Lymphocytes # (Manual) Monocytes # (Manual) Eosinophils # (Manual) Basophils # (Manual) PT INR Fibrinogen dRVVT Confirm Interp Factor V Activity POC ABG pH POC ABG pCO2 POC ABG pO2 ABG pO2 ABG HCO3 ABG Base Excess ABG Hemoglobin Oxyhemoglobin Sodium 147 H Potassium Chloride Carbon Dioxide BUN 82 H Creatinine 1.8 H Glucose 137 H POC Glucose 164 H 157 H Lactic Acid Calcium Phosphorus Magnesium Direct Bilirubin AST ALT Alkaline Phosphatase Lactate Dehydrogenase Troponin T C-Reactive Protein Total Protein Albumin Prealbumin Triglycerides Cholesterol LDL Cholesterol Direct HDL Cholesterol Urine pH Urine WBC (Auto) Urine Creatinine Urine Total Protein Fluid Total Protein Vancomycin Trough Rheumatoid Factor Complement C4 Miscellaneous Test Crossmatch 01/09/17 01/09/17 01/09/17 05:42 08:22 10:57 WBC RBC Hgb Hct MCV MCH MCHC RDW Plt Count Lymph % (Auto) [place] % (Auto) Lymph # [place] # Baso # Seg Neutrophils % Seg Neuts % (Manual) Lymphocytes % (Manual) Monocytes % (Manual) Eosinophils % (Manual) Basophils % (Manual) Nucleated RBC % Seg Neutrophils # Seg Neutrophils # Man Lymphocytes # (Manual) Monocytes # (Manual) Eosinophils # (Manual) Basophils # (Manual) PT INR Fibrinogen dRVVT Confirm Interp Factor V Activity POC ABG pH POC ABG pCO2 POC ABG pO2 ABG pO2 ABG HCO3 ABG Base Excess ABG Hemoglobin Oxyhemoglobin Sodium Potassium Chloride Carbon Dioxide BUN Creatinine Glucose POC Glucose 156 H 122 H Lactic Acid 2.30 H* Calcium Phosphorus Magnesium Direct Bilirubin AST ALT Alkaline Phosphatase Lactate Dehydrogenase Troponin T C-Reactive Protein Total Protein Albumin Prealbumin Triglycerides Cholesterol LDL Cholesterol Direct HDL Cholesterol Urine pH Urine WBC (Auto) Urine Creatinine Urine Total Protein Fluid Total Protein Vancomycin Trough Rheumatoid Factor Complement C4 Miscellaneous Test Crossmatch 01/09/17 01/09/17 01/09/17 13:30 17:14 18:45 WBC RBC Hgb Hct MCV MCH MCHC RDW Plt Count Lymph % (Auto) [place] % (Auto) Lymph # [place] # Baso # Seg Neutrophils % Seg Neuts % (Manual) Lymphocytes % (Manual) Monocytes % (Manual) Eosinophils % (Manual) Basophils % (Manual) Nucleated RBC % Seg Neutrophils # Seg Neutrophils # Man Lymphocytes # (Manual) Monocytes # (Manual) Eosinophils # (Manual) Basophils # (Manual) PT INR Fibrinogen dRVVT Confirm Interp Factor V Activity POC ABG pH POC ABG pCO2 POC ABG pO2 ABG pO2 ABG HCO3 ABG Base Excess ABG Hemoglobin Oxyhemoglobin Sodium Potassium Chloride Carbon Dioxide BUN Creatinine Glucose POC Glucose 127 H Lactic Acid Calcium Phosphorus Magnesium Direct Bilirubin AST ALT Alkaline Phosphatase Lactate Dehydrogenase Troponin T C-Reactive Protein 24.70 H Total Protein Albumin Prealbumin Triglycerides Cholesterol LDL Cholesterol Direct HDL Cholesterol Urine pH Urine WBC (Auto) Urine Creatinine Urine Total Protein Fluid Total Protein Vancomycin Trough Rheumatoid Factor Complement C4 Miscellaneous Test Flexitest 1 H Crossmatch 01/10/17 01/10/17 01/10/17 01:21 04:00 04:00 WBC 18.1 H RBC 3.22 L Hgb 8.8 L Hct 27.0 L D MCV MCH 27 L MCHC RDW 17.0 H Plt Count Lymph % (Auto) [place] % (Auto) Lymph # [place] # Baso # Seg Neutrophils % Seg Neuts % (Manual) Lymphocytes % (Manual) Monocytes % (Manual) Eosinophils % (Manual) Basophils % (Manual) Nucleated RBC % Seg Neutrophils # Seg Neutrophils # Man Lymphocytes # (Manual) Monocytes # (Manual) Eosinophils # (Manual) Basophils # (Manual) PT INR Fibrinogen dRVVT Confirm Interp Factor V Activity POC ABG pH POC ABG pCO2 POC ABG pO2 ABG pO2 ABG HCO3 ABG Base Excess ABG Hemoglobin Oxyhemoglobin Sodium Potassium Chloride Carbon Dioxide BUN 59 H Creatinine 1.3 H Glucose 122 H POC Glucose 160 H Lactic Acid Calcium Phosphorus Magnesium Direct Bilirubin AST ALT Alkaline Phosphatase Lactate Dehydrogenase Troponin T C-Reactive Protein Total Protein Albumin Prealbumin Triglycerides Cholesterol LDL Cholesterol Direct HDL Cholesterol Urine pH Urine WBC (Auto) Urine Creatinine Urine Total Protein Fluid Total Protein Vancomycin Trough Rheumatoid Factor Complement C4 Miscellaneous Test Crossmatch 01/10/17 01/10/17 01/10/17 05:36 12:14 17:55 WBC RBC Hgb Hct MCV MCH MCHC RDW Plt Count Lymph % (Auto) [place] % (Auto) Lymph # [place] # Baso # Seg Neutrophils % Seg Neuts % (Manual) Lymphocytes % (Manual) Monocytes % (Manual) Eosinophils % (Manual) Basophils % (Manual) Nucleated RBC % Seg Neutrophils # Seg Neutrophils # Man Lymphocytes # (Manual) Monocytes # (Manual) Eosinophils # (Manual) Basophils # (Manual) PT INR Fibrinogen dRVVT Confirm Interp Factor V Activity POC ABG pH POC ABG pCO2 POC ABG pO2 ABG pO2 ABG HCO3 ABG Base Excess ABG Hemoglobin Oxyhemoglobin Sodium Potassium Chloride Carbon Dioxide BUN Creatinine Glucose POC Glucose 163 H 120 H 144 H Lactic Acid Calcium Phosphorus Magnesium Direct Bilirubin AST ALT Alkaline Phosphatase Lactate Dehydrogenase Troponin T C-Reactive Protein Total Protein Albumin Prealbumin Triglycerides Cholesterol LDL Cholesterol Direct HDL Cholesterol Urine pH Urine WBC (Auto) Urine Creatinine Urine Total Protein Fluid Total Protein Vancomycin Trough Rheumatoid Factor Complement C4 Miscellaneous Test Crossmatch 01/11/17 01/11/17 01/11/17 00:09 04:00 04:00 WBC 15.8 H RBC 3.04 L Hgb 8.2 L Hct 25.5 L MCV MCH 27 L MCHC RDW 17.3 H Plt Count Lymph % (Auto) [place] % (Auto) Lymph # [place] # Baso # Seg Neutrophils % Seg Neuts % (Manual) Lymphocytes % (Manual) Monocytes % (Manual) Eosinophils % (Manual) Basophils % (Manual) Nucleated RBC % Seg Neutrophils # Seg Neutrophils # Man Lymphocytes # (Manual) Monocytes # (Manual) Eosinophils # (Manual) Basophils # (Manual) PT INR Fibrinogen dRVVT Confirm Interp Factor V Activity POC ABG pH POC ABG pCO2 POC ABG pO2 ABG pO2 ABG HCO3 ABG Base Excess ABG Hemoglobin Oxyhemoglobin Sodium Potassium Chloride Carbon Dioxide BUN 78 H Creatinine 1.6 H Glucose 109 H POC Glucose 122 H Lactic Acid Calcium Phosphorus Magnesium Direct Bilirubin AST ALT Alkaline Phosphatase Lactate Dehydrogenase Troponin T C-Reactive Protein Total Protein Albumin Prealbumin Triglycerides Cholesterol LDL Cholesterol Direct HDL Cholesterol Urine pH Urine WBC (Auto) Urine Creatinine Urine Total Protein Fluid Total Protein Vancomycin Trough Rheumatoid Factor Complement C4 Miscellaneous Test Crossmatch 01/11/17 01/11/17 01/11/17 12:46 18:23 23:42 WBC RBC Hgb Hct MCV MCH MCHC RDW Plt Count Lymph % (Auto) [place] % (Auto) Lymph # [place] # Baso # Seg Neutrophils % Seg Neuts % (Manual) Lymphocytes % (Manual) Monocytes % (Manual) Eosinophils % (Manual) Basophils % (Manual) Nucleated RBC % Seg Neutrophils # Seg Neutrophils # Man Lymphocytes # (Manual) Monocytes # (Manual) Eosinophils # (Manual) Basophils # (Manual) PT INR Fibrinogen dRVVT Confirm Interp Factor V Activity POC ABG pH POC ABG pCO2 POC ABG pO2 ABG pO2 ABG HCO3 ABG Base Excess ABG Hemoglobin Oxyhemoglobin Sodium Potassium Chloride Carbon Dioxide BUN Creatinine Glucose POC Glucose 148 H 125 H 124 H Lactic Acid Calcium Phosphorus Magnesium Direct Bilirubin AST ALT Alkaline Phosphatase Lactate Dehydrogenase Troponin T C-Reactive Protein Total Protein Albumin Prealbumin Triglycerides Cholesterol LDL Cholesterol Direct HDL Cholesterol Urine pH Urine WBC (Auto) Urine Creatinine Urine Total Protein Fluid Total Protein Vancomycin Trough Rheumatoid Factor Complement C4 Miscellaneous Test Crossmatch 01/12/17 01/12/17 01/12/17 04:30 04:30 05:47 WBC 15.8 H RBC 3.31 L Hgb 8.9 L Hct 27.9 L MCV MCH 27 L MCHC RDW 17.4 H Plt Count Lymph % (Auto) [place] % (Auto) Lymph # [place] # Baso # Seg Neutrophils % Seg Neuts % (Manual) Lymphocytes % (Manual) Monocytes % (Manual) Eosinophils % (Manual) Basophils % (Manual) Nucleated RBC % Seg Neutrophils # Seg Neutrophils # Man Lymphocytes # (Manual) Monocytes # (Manual) Eosinophils # (Manual) Basophils # (Manual) PT INR Fibrinogen dRVVT Confirm Interp Factor V Activity POC ABG pH POC ABG pCO2 POC ABG pO2 ABG pO2 ABG HCO3 ABG Base Excess ABG Hemoglobin Oxyhemoglobin Sodium Potassium Chloride Carbon Dioxide BUN 57 H Creatinine Glucose 121 H POC Glucose 110 H Lactic Acid Calcium Phosphorus 2.10 L Magnesium Direct Bilirubin AST ALT Alkaline Phosphatase Lactate Dehydrogenase Troponin T C-Reactive Protein Total Protein Albumin Prealbumin Triglycerides Cholesterol LDL Cholesterol Direct HDL Cholesterol Urine pH Urine WBC (Auto) Urine Creatinine Urine Total Protein Fluid Total Protein Vancomycin Trough Rheumatoid Factor Complement C4 Miscellaneous Test Crossmatch 01/12/17 01/12/17 01/12/17 11:35 17:45 23:14 WBC RBC Hgb Hct MCV MCH MCHC RDW Plt Count Lymph % (Auto) [place] % (Auto) Lymph # [place] # Baso # Seg Neutrophils % Seg Neuts % (Manual) Lymphocytes % (Manual) Monocytes % (Manual) Eosinophils % (Manual) Basophils % (Manual) Nucleated RBC % Seg Neutrophils # Seg Neutrophils # Man Lymphocytes # (Manual) Monocytes # (Manual) Eosinophils # (Manual) Basophils # (Manual) PT INR Fibrinogen dRVVT Confirm Interp Factor V Activity POC ABG pH POC ABG pCO2 POC ABG pO2 ABG pO2 ABG HCO3 ABG Base Excess ABG Hemoglobin Oxyhemoglobin Sodium Potassium Chloride Carbon Dioxide BUN Creatinine Glucose POC Glucose 146 H 117 H 123 H Lactic Acid Calcium Phosphorus Magnesium Direct Bilirubin AST ALT Alkaline Phosphatase Lactate Dehydrogenase Troponin T C-Reactive Protein Total Protein Albumin Prealbumin Triglycerides Cholesterol LDL Cholesterol Direct HDL Cholesterol Urine pH Urine WBC (Auto) Urine Creatinine Urine Total Protein Fluid Total Protein Vancomycin Trough Rheumatoid Factor Complement C4 Miscellaneous Test Crossmatch 01/13/17 01/13/17 01/13/17 05:32 06:00 12:10 WBC RBC Hgb Hct MCV MCH MCHC RDW Plt Count Lymph % (Auto) [place] % (Auto) Lymph # [place] # Baso # Seg Neutrophils % Seg Neuts % (Manual) Lymphocytes % (Manual) Monocytes % (Manual) Eosinophils % (Manual) Basophils % (Manual) Nucleated RBC % Seg Neutrophils # Seg Neutrophils # Man Lymphocytes # (Manual) Monocytes # (Manual) Eosinophils # (Manual) Basophils # (Manual) PT INR Fibrinogen dRVVT Confirm Interp Factor V Activity POC ABG pH POC ABG pCO2 POC ABG pO2 ABG pO2 ABG HCO3 ABG Base Excess ABG Hemoglobin Oxyhemoglobin Sodium Potassium Chloride Carbon Dioxide BUN 80 H Creatinine 1.4 H Glucose 106 H POC Glucose 106 H Lactic Acid Calcium Phosphorus Magnesium Direct Bilirubin AST ALT Alkaline Phosphatase Lactate Dehydrogenase Troponin T C-Reactive Protein Total Protein Albumin Prealbumin Triglycerides Cholesterol LDL Cholesterol Direct HDL Cholesterol Urine pH Urine WBC (Auto) Urine Creatinine Urine Total Protein Fluid Total Protein 3.0 L Vancomycin Trough Rheumatoid Factor Complement C4 Miscellaneous Test Crossmatch 01/13/17 01/13/17 01/13/17 12:17 15:50 17:30 WBC RBC Hgb Hct MCV MCH MCHC RDW Plt Count Lymph % (Auto) [place] % (Auto) Lymph # [place] # Baso # Seg Neutrophils % Seg Neuts % (Manual) Lymphocytes % (Manual) Monocytes % (Manual) Eosinophils % (Manual) Basophils % (Manual) Nucleated RBC % Seg Neutrophils # Seg Neutrophils # Man Lymphocytes # (Manual) Monocytes # (Manual) Eosinophils # (Manual) Basophils # (Manual) PT 15.4 H INR 1.16 H Fibrinogen dRVVT Confirm Interp Factor V Activity POC ABG pH POC ABG pCO2 POC ABG pO2 ABG pO2 ABG HCO3 ABG Base Excess ABG Hemoglobin Oxyhemoglobin Sodium Potassium Chloride Carbon Dioxide BUN Creatinine Glucose POC Glucose 168 H 110 H Lactic Acid Calcium Phosphorus Magnesium Direct Bilirubin AST ALT Alkaline Phosphatase Lactate Dehydrogenase Troponin T C-Reactive Protein Total Protein Albumin Prealbumin Triglycerides Cholesterol LDL Cholesterol Direct HDL Cholesterol Urine pH Urine WBC (Auto) Urine Creatinine Urine Total Protein Fluid Total Protein Vancomycin Trough Rheumatoid Factor Complement C4 Miscellaneous Test Crossmatch 01/13/17 01/14/17 01/14/17 23:42 05:24 05:30 WBC RBC Hgb Hct MCV MCH MCHC RDW Plt Count Lymph % (Auto) [place] % (Auto) Lymph # [place] # Baso # Seg Neutrophils % Seg Neuts % (Manual) Lymphocytes % (Manual) Monocytes % (Manual) Eosinophils % (Manual) Basophils % (Manual) Nucleated RBC % Seg Neutrophils # Seg Neutrophils # Man Lymphocytes # (Manual) Monocytes # (Manual) Eosinophils # (Manual) Basophils # (Manual) PT INR Fibrinogen dRVVT Confirm Interp Factor V Activity POC ABG pH POC ABG pCO2 POC ABG pO2 ABG pO2 ABG HCO3 ABG Base Excess ABG Hemoglobin Oxyhemoglobin Sodium Potassium Chloride Carbon Dioxide BUN 58 H Creatinine Glucose 114 H POC Glucose 155 H 121 H Lactic Acid Calcium Phosphorus Magnesium Direct Bilirubin AST ALT Alkaline Phosphatase Lactate Dehydrogenase Troponin T C-Reactive Protein Total Protein Albumin Prealbumin Triglycerides Cholesterol LDL Cholesterol Direct HDL Cholesterol Urine pH Urine WBC (Auto) Urine Creatinine Urine Total Protein Fluid Total Protein Vancomycin Trough Rheumatoid Factor Complement C4 Miscellaneous Test Crossmatch 01/14/17 01/14/17 01/15/17 12:48 17:36 00:15 WBC RBC Hgb Hct MCV MCH MCHC RDW Plt Count Lymph % (Auto) [place] % (Auto) Lymph # [place] # Baso # Seg Neutrophils % Seg Neuts % (Manual) Lymphocytes % (Manual) Monocytes % (Manual) Eosinophils % (Manual) Basophils % (Manual) Nucleated RBC % Seg Neutrophils # Seg Neutrophils # Man Lymphocytes # (Manual) Monocytes # (Manual) Eosinophils # (Manual) Basophils # (Manual) PT INR Fibrinogen dRVVT Confirm Interp Factor V Activity POC ABG pH POC ABG pCO2 POC ABG pO2 ABG pO2 ABG HCO3 ABG Base Excess ABG Hemoglobin Oxyhemoglobin Sodium Potassium Chloride Carbon Dioxide BUN Creatinine Glucose POC Glucose 130 H 135 H 132 H Lactic Acid Calcium Phosphorus Magnesium Direct Bilirubin AST ALT Alkaline Phosphatase Lactate Dehydrogenase Troponin T C-Reactive Protein Total Protein Albumin Prealbumin Triglycerides Cholesterol LDL Cholesterol Direct HDL Cholesterol Urine pH Urine WBC (Auto) Urine Creatinine Urine Total Protein Fluid Total Protein Vancomycin Trough Rheumatoid Factor Complement C4 Miscellaneous Test Crossmatch 01/15/17 01/15/17 01/15/17 05:01 11:55 12:45 WBC 16.2 H RBC 3.00 L Hgb 8.1 L Hct 25.4 L MCV MCH 27 L MCHC RDW 17.6 H Plt Count Lymph % (Auto) 11.7 L [place] % (Auto) 7.8 H Lymph # [place] # 1.3 H Baso # Seg Neutrophils % 80.1 H Seg Neuts % (Manual) Lymphocytes % (Manual) Monocytes % (Manual) Eosinophils % (Manual) Basophils % (Manual) Nucleated RBC % Seg Neutrophils # 13.0 H Seg Neutrophils # Man Lymphocytes # (Manual) Monocytes # (Manual) Eosinophils # (Manual) Basophils # (Manual) PT INR Fibrinogen dRVVT Confirm Interp Factor V Activity POC ABG pH POC ABG pCO2 POC ABG pO2 ABG pO2 ABG HCO3 ABG Base Excess ABG Hemoglobin Oxyhemoglobin Sodium Potassium Chloride Carbon Dioxide BUN Creatinine Glucose POC Glucose 126 H 125 H Lactic Acid Calcium Phosphorus Magnesium Direct Bilirubin AST ALT Alkaline Phosphatase Lactate Dehydrogenase Troponin T C-Reactive Protein Total Protein Albumin Prealbumin Triglycerides Cholesterol LDL Cholesterol Direct HDL Cholesterol Urine pH Urine WBC (Auto) Urine Creatinine Urine Total Protein Fluid Total Protein Vancomycin Trough Rheumatoid Factor Complement C4 Miscellaneous Test Crossmatch 01/15/17 01/15/17 01/15/17 12:45 17:31 23:39 WBC RBC Hgb Hct MCV MCH MCHC RDW Plt Count Lymph % (Auto) [place] % (Auto) Lymph # [place] # Baso # Seg Neutrophils % Seg Neuts % (Manual) Lymphocytes % (Manual) Monocytes % (Manual) Eosinophils % (Manual) Basophils % (Manual) Nucleated RBC % Seg Neutrophils # Seg Neutrophils # Man Lymphocytes # (Manual) Monocytes # (Manual) Eosinophils # (Manual) Basophils # (Manual) PT INR Fibrinogen dRVVT Confirm Interp Factor V Activity POC ABG pH POC ABG pCO2 POC ABG pO2 ABG pO2 ABG HCO3 ABG Base Excess ABG Hemoglobin Oxyhemoglobin Sodium 136 L Potassium Chloride Carbon Dioxide BUN 87 H Creatinine 1.7 H Glucose 108 H POC Glucose 129 H 112 H Lactic Acid Calcium Phosphorus Magnesium Direct Bilirubin AST ALT Alkaline Phosphatase Lactate Dehydrogenase Troponin T C-Reactive Protein Total Protein Albumin Prealbumin Triglycerides Cholesterol LDL Cholesterol Direct HDL Cholesterol Urine pH Urine WBC (Auto) Urine Creatinine Urine Total Protein Fluid Total Protein Vancomycin Trough Rheumatoid Factor Complement C4 Miscellaneous Test Crossmatch 01/16/17 01/16/17 01/16/17 05:23 11:42 12:32 WBC RBC Hgb Hct MCV MCH MCHC RDW Plt Count Lymph % (Auto) [place] % (Auto) Lymph # [place] # Baso # Seg Neutrophils % Seg Neuts % (Manual) Lymphocytes % (Manual) Monocytes % (Manual) Eosinophils % (Manual) Basophils % (Manual) Nucleated RBC % Seg Neutrophils # Seg Neutrophils # Man Lymphocytes # (Manual) Monocytes # (Manual) Eosinophils # (Manual) Basophils # (Manual) PT INR Fibrinogen dRVVT Confirm Interp Factor V Activity POC ABG pH 7.499 H POC ABG pCO2 30.9 L POC ABG pO2 51 L ABG pO2 ABG HCO3 ABG Base Excess ABG Hemoglobin Oxyhemoglobin Sodium Potassium Chloride Carbon Dioxide BUN Creatinine Glucose POC Glucose 118 H 133 H Lactic Acid Calcium Phosphorus Magnesium Direct Bilirubin AST ALT Alkaline Phosphatase Lactate Dehydrogenase Troponin T C-Reactive Protein Total Protein Albumin Prealbumin Triglycerides Cholesterol LDL Cholesterol Direct HDL Cholesterol Urine pH Urine WBC (Auto) Urine Creatinine Urine Total Protein Fluid Total Protein Vancomycin Trough Rheumatoid Factor Complement C4 Miscellaneous Test Crossmatch 01/16/17 01/16/17 01/16/17 17:52 23:57 Unknown WBC RBC Hgb Hct MCV MCH MCHC RDW Plt Count Lymph % (Auto) [place] % (Auto) Lymph # [place] # Baso # Seg Neutrophils % Seg Neuts % (Manual) Lymphocytes % (Manual) Monocytes % (Manual) Eosinophils % (Manual) Basophils % (Manual) Nucleated RBC % Seg Neutrophils # Seg Neutrophils # Man Lymphocytes # (Manual) Monocytes # (Manual) Eosinophils # (Manual) Basophils # (Manual) PT INR Fibrinogen dRVVT Confirm Interp Factor V Activity POC ABG pH POC ABG pCO2 POC ABG pO2 ABG pO2 ABG HCO3 ABG Base Excess ABG Hemoglobin Oxyhemoglobin Sodium 135 L Potassium Chloride Carbon Dioxide BUN 101 H Creatinine 1.8 H Glucose 117 H POC Glucose 130 H 143 H Lactic Acid Calcium Phosphorus 5.80 H Magnesium Direct Bilirubin AST ALT Alkaline Phosphatase Lactate Dehydrogenase Troponin T C-Reactive Protein Total Protein Albumin Prealbumin Triglycerides Cholesterol LDL Cholesterol Direct HDL Cholesterol Urine pH Urine WBC (Auto) Urine Creatinine Urine Total Protein Fluid Total Protein Vancomycin Trough Rheumatoid Factor Complement C4 Miscellaneous Test Crossmatch 01/17/17 01/17/17 01/17/17 05:30 05:46 11:49 WBC RBC Hgb Hct MCV MCH MCHC RDW Plt Count Lymph % (Auto) [place] % (Auto) Lymph # [place] # Baso # Seg Neutrophils % Seg Neuts % (Manual) Lymphocytes % (Manual) Monocytes % (Manual) Eosinophils % (Manual) Basophils % (Manual) Nucleated RBC % Seg Neutrophils # Seg Neutrophils # Man Lymphocytes # (Manual) Monocytes # (Manual) Eosinophils # (Manual) Basophils # (Manual) PT INR Fibrinogen dRVVT Confirm Interp Factor V Activity POC ABG pH POC ABG pCO2 POC ABG pO2 ABG pO2 ABG HCO3 ABG Base Excess ABG Hemoglobin Oxyhemoglobin Sodium 134 L Potassium Chloride 95.8 L Carbon Dioxide BUN 66 H Creatinine 1.3 H Glucose 138 H POC Glucose 147 H 124 H Lactic Acid Calcium Phosphorus Magnesium Direct Bilirubin AST ALT Alkaline Phosphatase 254 H Lactate Dehydrogenase Troponin T C-Reactive Protein Total Protein Albumin 1.3 L Prealbumin Triglycerides Cholesterol LDL Cholesterol Direct HDL Cholesterol Urine pH Urine WBC (Auto) Urine Creatinine Urine Total Protein Fluid Total Protein Vancomycin Trough Rheumatoid Factor Complement C4 Miscellaneous Test Crossmatch 01/17/17 01/17/17 01/18/17 17:30 23:41 05:15 WBC RBC Hgb Hct MCV MCH MCHC RDW Plt Count Lymph % (Auto) [place] % (Auto) Lymph # [place] # Baso # Seg Neutrophils % Seg Neuts % (Manual) Lymphocytes % (Manual) Monocytes % (Manual) Eosinophils % (Manual) Basophils % (Manual) Nucleated RBC % Seg Neutrophils # Seg Neutrophils # Man Lymphocytes # (Manual) Monocytes # (Manual) Eosinophils # (Manual) Basophils # (Manual) PT INR Fibrinogen dRVVT Confirm Interp Factor V Activity POC ABG pH POC ABG pCO2 POC ABG pO2 ABG pO2 ABG HCO3 ABG Base Excess ABG Hemoglobin Oxyhemoglobin Sodium Potassium Chloride Carbon Dioxide BUN 89 H Creatinine 1.7 H Glucose 118 H POC Glucose 137 H 119 H Lactic Acid Calcium Phosphorus Magnesium Direct Bilirubin AST ALT Alkaline Phosphatase Lactate Dehydrogenase Troponin T C-Reactive Protein Total Protein Albumin Prealbumin Triglycerides Cholesterol LDL Cholesterol Direct HDL Cholesterol Urine pH Urine WBC (Auto) Urine Creatinine Urine Total Protein Fluid Total Protein Vancomycin Trough Rheumatoid Factor Complement C4 Miscellaneous Test Crossmatch 01/18/17 01/18/17 01/18/17 05:19 12:16 18:11 WBC RBC Hgb Hct MCV MCH MCHC RDW Plt Count Lymph % (Auto) [place] % (Auto) Lymph # [place] # Baso # Seg Neutrophils % Seg Neuts % (Manual) Lymphocytes % (Manual) Monocytes % (Manual) Eosinophils % (Manual) Basophils % (Manual) Nucleated RBC % Seg Neutrophils # Seg Neutrophils # Man Lymphocytes # (Manual) Monocytes # (Manual) Eosinophils # (Manual) Basophils # (Manual) PT INR Fibrinogen dRVVT Confirm Interp Factor V Activity POC ABG pH POC ABG pCO2 POC ABG pO2 ABG pO2 ABG HCO3 ABG Base Excess ABG Hemoglobin Oxyhemoglobin Sodium Potassium Chloride Carbon Dioxide BUN Creatinine Glucose POC Glucose 134 H 188 H 113 H Lactic Acid Calcium Phosphorus Magnesium Direct Bilirubin AST ALT Alkaline Phosphatase Lactate Dehydrogenase Troponin T C-Reactive Protein Total Protein Albumin Prealbumin Triglycerides Cholesterol LDL Cholesterol Direct HDL Cholesterol Urine pH Urine WBC (Auto) Urine Creatinine Urine Total Protein Fluid Total Protein Vancomycin Trough Rheumatoid Factor Complement C4 Miscellaneous Test Crossmatch 01/19/17 01/19/17 01/19/17 00:00 05:30 05:36 WBC RBC Hgb Hct MCV MCH MCHC RDW Plt Count Lymph % (Auto) [place] % (Auto) Lymph # [place] # Baso # Seg Neutrophils % Seg Neuts % (Manual) Lymphocytes % (Manual) Monocytes % (Manual) Eosinophils % (Manual) Basophils % (Manual) Nucleated RBC % Seg Neutrophils # Seg Neutrophils # Man Lymphocytes # (Manual) Monocytes # (Manual) Eosinophils # (Manual) Basophils # (Manual) PT INR Fibrinogen dRVVT Confirm Interp Factor V Activity POC ABG pH POC ABG pCO2 POC ABG pO2 ABG pO2 ABG HCO3 ABG Base Excess ABG Hemoglobin Oxyhemoglobin Sodium Potassium Chloride Carbon Dioxide BUN 70 H Creatinine 1.5 H Glucose 121 H POC Glucose 137 H 155 H Lactic Acid Calcium Phosphorus 2.10 L D Magnesium Direct Bilirubin AST ALT Alkaline Phosphatase Lactate Dehydrogenase Troponin T C-Reactive Protein Total Protein Albumin Prealbumin Triglycerides Cholesterol LDL Cholesterol Direct HDL Cholesterol Urine pH Urine WBC (Auto) Urine Creatinine Urine Total Protein Fluid Total Protein Vancomycin Trough Rheumatoid Factor Complement C4 Miscellaneous Test Crossmatch 01/19/17 01/19/17 01/19/17 11:59 15:32 17:57 WBC RBC Hgb Hct MCV MCH MCHC RDW Plt Count Lymph % (Auto) [place] % (Auto) Lymph # [place] # Baso # Seg Neutrophils % Seg Neuts % (Manual) Lymphocytes % (Manual) Monocytes % (Manual) Eosinophils % (Manual) Basophils % (Manual) Nucleated RBC % Seg Neutrophils # Seg Neutrophils # Man Lymphocytes # (Manual) Monocytes # (Manual) Eosinophils # (Manual) Basophils # (Manual) PT INR Fibrinogen dRVVT Confirm Interp Factor V Activity POC ABG pH POC ABG pCO2 33.1 L POC ABG pO2 76 L ABG pO2 ABG HCO3 ABG Base Excess ABG Hemoglobin Oxyhemoglobin Sodium Potassium Chloride Carbon Dioxide BUN Creatinine Glucose POC Glucose 156 H 129 H Lactic Acid Calcium Phosphorus Magnesium Direct Bilirubin AST ALT Alkaline Phosphatase Lactate Dehydrogenase Troponin T C-Reactive Protein Total Protein Albumin Prealbumin Triglycerides Cholesterol LDL Cholesterol Direct HDL Cholesterol Urine pH Urine WBC (Auto) Urine Creatinine Urine Total Protein Fluid Total Protein Vancomycin Trough Rheumatoid Factor Complement C4 Miscellaneous Test Crossmatch 01/19/17 01/20/17 01/20/17 23:49 04:00 05:21 WBC RBC Hgb Hct MCV MCH MCHC RDW Plt Count Lymph % (Auto) [place] % (Auto) Lymph # [place] # Baso # Seg Neutrophils % Seg Neuts % (Manual) Lymphocytes % (Manual) Monocytes % (Manual) Eosinophils % (Manual) Basophils % (Manual) Nucleated RBC % Seg Neutrophils # Seg Neutrophils # Man Lymphocytes # (Manual) Monocytes # (Manual) Eosinophils # (Manual) Basophils # (Manual) PT INR Fibrinogen dRVVT Confirm Interp Factor V Activity POC ABG pH POC ABG pCO2 POC ABG pO2 ABG pO2 ABG HCO3 ABG Base Excess ABG Hemoglobin Oxyhemoglobin Sodium Potassium Chloride Carbon Dioxide BUN 96 H Creatinine 1.9 H Glucose 106 H POC Glucose 125 H 130 H Lactic Acid Calcium Phosphorus 2.40 L Magnesium Direct Bilirubin AST ALT Alkaline Phosphatase Lactate Dehydrogenase Troponin T C-Reactive Protein Total Protein Albumin Prealbumin Triglycerides Cholesterol LDL Cholesterol Direct HDL Cholesterol Urine pH Urine WBC (Auto) Urine Creatinine Urine Total Protein Fluid Total Protein Vancomycin Trough Rheumatoid Factor Complement C4 Miscellaneous Test Crossmatch Allied health notes reviewed: RT (not tolerating weaning. Has been on hold as she has been vomiting)
--- NOTE | 2017-01-20 14:39 | Progress Note ---
Assessment and Plan Assessment: 1) Recurrent SIRS: unclear source, fever better. Likely due to -infected sacral decubitus +/- VAP 2) History of Peritonitis: from gastric perforation from dislodged PEG with significant ascites -S/P exlap, repair of gastric perforation with wedge gastrectomy, abdominal washout, drain placement on 10/05. 3) History of Candidemia: -Blood cultures positive for Silvia albicans on 09/23 and 09/25 -Blood cultures negative on 09/30 -PICC line changed on 10/03 -Source ? gastric perf (PEG placed on 09/20) +/- TPN +/- central lines -TTE 10/07 no vegetations -PICC exchanged on 10/03 -fully treated with micafungin for 14 days last day 10/13 4) History CA-UTI s/p gutierrez exchanged 5) Diarrhea - ? etiology ? antibiotic-induced, not better. 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 from GI bleed 13) Recent abdominal wall abscess at surgical site-treated 14 ) Recent Enterococcal bacteremia from PICC line infection. 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 no cultures obtained 16) Presumed VAP: sputum + MDR Pseudomonas / Proteus Plan: -continue meropenem day 12 (if she has sacral osteo will do 4 weeks) will see her back on Tuesday 01/[address] Hodges for your consultation, will follow up with you. Pauline Carias MD Infectious Diseases Specialist [facility] ([facility] M [phone] O [phone] Subjective Date of service: 01/20/17 Principal diagnosis: Acute resp failure on MVS; S/P Acute CVA; Acute Encephalopathy; JUANITA Interval history: Interval history: remains on the vent via trach no fever, off pressors, + TPN, no fever last 24h Microbiology: Blood cultures: 09/13 neg 09/23 Silvia albicans 09/25 Silvia 09/29 neg 10/07 neg 11/05 neg 11/07 ngtd 11/22 E faecalis 1 of 4 bottles 11/25 neg 11 neg 01/09 ngtd Urine cultures: 09/10 neg 09/13 neg 8/ 10-100K mixed species 10/07 neg 11/05 VRE 11/07 mixed bacteria Respiratory cultures: 09/07 neg 09/13 neg 8 neg 11/07 MDR Pseudomonas 10 tracheal + VRE 01/09 Pseudomonas x 3 and Proteues Pleural effusion: ngtd Wound cultures: 10/17 abd wall wound purulence + Pseudomonas MDR Stool cultures: cath tip 11/07 + [employer] Current Antimicrobials: meropenem 01/08 Previous Antimicrobials: Zosyn 10/07 Vancomycin PO 10/01 Metronidazole 09/25 Micafungin 09/27-10/13 Meropenem 10/10 Vanco 10/17 zosyn 10/21 Cefepime 11/10 vancomyin 11/07 fluconazole 10/19 cefepime 10/29levaquin 11/05 vanco 11/23 Objective - Exam Narrative Exam: General appearance: somnolent non communicative, on the vent via trach in mild resp distress, no following commands Eyes: anicteric sclera, moist conjunctivae; PERRLA HENT: Atraumatic; oropharynx limited; Normal external ears. +NGT with greenish secretion Neck: +trach in place; supple, no thyromegaly or lymphadenopathy Lungs: brit coarse BS CV: rrr Abdomen: Soft, non-tender, +old PEG site no drainage. +iliostomy. 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 Neuro: alert non verbal on the vent. Lines: PICC / gutierrez - Constitutional Vitals: Vital Signs Temp Pulse Resp BP Pulse Ox 98.7 F 110 H 31 H 122/66 100 01/20/17 12:15 01/20/17 13:30 01/20/17 13:30 01/20/17 13:55 01/20/17 13:30 Temperature -Last 24 Hours Temperature 98.7 F Temperature 98.9 F Temperature 99.3 F Temperature 99.3 F Temperature 100 F Temperature 98.9 F Temperature 100.2 F - Labs CBC & Chem 7: 01/15/17 12:45 01/20/17 04:00 Labs: Abnormal lab results 01/19/17 01/19/17 01/19/17 Range/Units 15:32 17:57 23:49 POC ABG pCO2 33.1 L (35-45) POC ABG pO2 76 L (80-105) BUN (7-17) mg/dL Creatinine (0.7-1.2) mg/dL Glucose (65-100) mg/dL POC Glucose 129 H 125 H (70-105) Phosphorus (2.5-4.5) mg/dL 01/20/17 01/20/17 01/20/17 Range/Units 04:00 05:21 11:58 POC ABG pCO2 (35-45) POC ABG pO2 (80-105) BUN 96 H (7-17) mg/dL Creatinine 1.9 H (0.7-1.2) mg/dL Glucose 106 H (65-100) mg/dL POC Glucose 130 H 118 H (70-105) Phosphorus 2.40 L (2.5-4.5) mg/dL 01/20/17 Range/Units 12:17 POC ABG pCO2 (35-45) POC ABG pO2 70 L (80-105) BUN (7-17) mg/dL Creatinine (0.7-1.2) mg/dL Glucose (65-100) mg/dL POC Glucose (70-105) Phosphorus (2.5-4.5) mg/dL
[2017-01-20] MEDS: HEPARIN IV PRN (19:19)
[2017-01-20] MEDS ORDERED: INTRALIPID 20% 250 ML IV SCH (20:00)
[2017-01-20] MEDS ORDERED: TPN ADULT IV SCH (20:00)
[2017-01-21] MEDS: LOPRESSOR PO SCH ×4 (00:46→18:26)
[2017-01-21] MEDS: HumuLIN R SUB-Q SCH ×4 (00:48→18:26)
[2017-01-21] MEDS: REGLAN IV SCH ×4 (00:49→22:29)
[2017-01-21] MEDS: DUONEB *Not for PRN Use IH SCH ×4 (01:06→19:23)
[2017-01-21] MEDS: ALBURX 25% (ALBUMIN) IV SCH ×2 (04:30→17:06)
[2017-01-21] MEDS: APRESOLINE PO SCH ×3 (04:30→22:29)
[2017-01-21] MEDS: LASIX IV SCH ×2 (05:00→18:26)
[2017-01-21] MEDS: ROBINUL PO SCH ×2 (09:53→22:29)
[2017-01-21] MEDS: CORDARONE PO SCH ×2 (09:53→22:30)
[2017-01-21] MEDS: PROTONIX FEEDTUBE SCH (09:53)
[2017-01-21] MEDS: NORVASC PO SCH (09:53)
[2017-01-21] MEDS: HEPARIN SUB-Q SCH ×2 (09:53→22:29)
[2017-01-21] MEDS: NACL 0.9% IV SCH (09:58)
[2017-01-21] MEDS: MERREM IV SCH (09:58)
[2017-01-21 10:13] LABS: Calcium 8.8 mg/dL (8.4-10.2)
--- NOTE | 2017-01-21 12:21 | Consultation ---
Past History Past Medical History: diabetes, hypertension, renal failure, stroke, other ( Medical noncompliance) Past Surgical History: cholecystectomy (per chart review) Social history: other (per chart review, family denied any smoking or alcohol history on admission). denies: smoking, alcohol abuse, prescription drug abuse , IV drug use Family history: hypertension (per chart review) Medications and Allergies Allergies Allergy/AdvReac Type Severity Reaction Status Date / Time No Known Allergies Allergy Verified 04/14/15 06:02 Home Medications Medication Instructions Recorded Confirmed Last Taken Type Acetaminophen [Tylenol Arthritis] 650 mg PO QID PRN #30 tablet.er 02/15/1609/12 Unknown Rx Albuterol Sulfate [Proventil HFA] 6.7 gm INHALATION Q4-6H 02/15/16 09/12/16 History Insulin Glargine [Lantus VIAL] 30 units SQ QHS 02/15/16 09/12/16 02/15/16 History Clonidine HCl [Catapres] 0.3 mg PO TID #90 tablet 06/15/16 09/12/16 Unknown Rx Lisinopril [Zestril] 40 mg PO BID #60 tablet 06/15/16 09/12/16 Unknown Rx Polyethylene Glycol 3350 [Miralax 17 gm PO QDAY PRN #10 packet 06/15/16 Unknown Rx 3350] Albuterol 2 inhalation INHALATION Q4HR PRN 09/12/16 09/12/16 Unknown History AtorvaSTATin [Lipitor] 20 mg PO QHS 09/12/16 09/12/16 Unknown History Flovent 110 MCG/PUFF HFA 1 inhalation INHALATION QHS 09/12/16 09/12/16 Unknown History Furosemide [Lasix] 20 mg PO QDAY 09/12/16 09/12/16 Unknown History HumaLOG VIAL 45 units SUB-Q TID 09/12/16 09/12/16 Unknown History Insulin Aspart [NovoLOG Flexpen] 30 units SUB-Q TID MDD 30 Units 09/12/16 Unknown History Labetalol HCl 300 mg PO BID 09/12/16 09/12/16 Unknown History Spironolactone [Aldactone] 25 mg PO QDAY 09/12/16 09/12/16 Unknown History hydrALAZINE [Apresoline] 25 mg PO BID 09/12/16 09/12/16 Unknown History Active Meds: Active Medications Acetaminophen (Tylenol) 650 mg FEEDTUBE Q6H PRN PRN Reason: Non Cardiac Pain or Temp>100.5 Last Admin: 12/27/16 22:45 Dose: 650 mg Albumin Human (Alburx 25% (Albumin)) 25 gm IV Q12H [facility] Last Admin: 01/21/17 04:30 Dose: 25 gm Albuterol (Proventil) 2.5 mg IH Q3HRT PRN PRN Reason: Shortness Of Breath Albuterol/Ipratropium (Duoneb *Not For Prn Use*) 1 ampul IH Q6HRT [facility] Last Admin: 01/21/17 07:44 Dose: 1 ampul Amiodarone HCl (Cordarone) 200 mg PO BID [facility] Last Admin: 01/21/17 09:53 Dose: 200 mg Amlodipine Besylate (Norvasc) 10 mg PO DAILY [facility] Last Admin: 01/21/17 09:53 Dose: 10 mg Lipase/Protease/Amylase (Pancreaze Dr 10,500 Unit) 1 each FEEDTUBE PRN PRN PRN Reason: For Clogged Feeding Tube Dextrose (D50w (25gm) Syringe) 25 ml IV PRN PRN PRN Reason: Hypoglycemia Last Admin: 11/24/16 17:47 Dose: 25 ml Epoetin Mariusz (Epogen) 20,000 unit IV KERWIN PRN PRN Reason: hemodialysis Last Admin: 01/20/17 17:11 Dose: 20,000 unit Fentanyl (Duragesic) 25 mcg TD Q3D [facility] Last Admin: 01/19/17 12:50 Dose: 25 mcg Furosemide (Lasix) 60 mg IV 0600,1800 [facility] Last Admin: 01/21/17 05:00 Dose: 60 mg Glycopyrrolate (Robinul) 1 mg PO BID [facility] Last Admin: 01/21/17 09:53 Dose: 1 mg Heparin Sodium (Porcine) (Heparin) 5,000 unit IV KERWIN PRN PRN Reason: hemodialysis Last Admin: 01/20/17 19:19 Dose: 5,000 unit Heparin Sodium (Porcine) (Heparin) 5,000 unit SUB-Q BID [facility] Last Admin: 01/21/17 09:53 Dose: 5,000 unit Hydralazine HCl (Apresoline) 100 mg PO Q8HR [facility] Last Admin: 01/21/17 04:30 Dose: 100 mg Hydralazine HCl (Apresoline) 10 mg IV Q6HR PRN PRN Reason: SBP > 160 Last Admin: 12/03/16 05:16 Dose: 10 mg Hydromorphone HCl (Dilaudid) 1 mg IV Q4H PRN PRN Reason: Pain Last Admin: 01/18/17 18:12 Dose: 1 mg Sodium Chloride (Nacl 0.9%) 100 mls @ 999 mls/hr IV KERWIN PRN PRN Reason: Hypotension Meropenem 500 mg/ Sodium (Chloride) 20 mls @ 20 mls/10 min IV Q24HR [facility] Last Admin: 01/21/17 09:58 Dose: 20 mls/10 min Sodium Chloride (Nacl 0.9%) 100 mls @ 999 mls/hr IV KERWIN PRN PRN Reason: Hypotension Amino Acids/Electrolytes/Dextrose (Tpn Adult) 1,440 mls @ 60 mls/hr IV DAILY@ 2000 [facility] PRN Reason: Protocol Stop: 01/21/17 19:59 Last Admin: 01/20/17 20:34 Dose: 60 mls/hr Amino Acids/Electrolytes/Dextrose (Tpn Adult) 1,440 mls @ 60 mls/hr IV DAILY@ 1999 [facility] PRN Reason: Protocol Stop: 01/22/17 19:59 Insulin Human Regular (Novolin R) 0 units SUB-Q Q6HR [facility] PRN Reason: Protocol Last Admin: 01/21/17 05:06 Dose: Not Given Labetalol HCl (Normodyne) 10 mg IV Q6H PRN PRN Reason: SBP > 160 Metoclopramide HCl (Reglan) 10 mg IV Q8HR [facility] Last Admin: 01/21/17 05:01 Dose: 10 mg Metoprolol Tartrate (Lopressor) 75 mg PO Q6HR [facility] Last Admin: 01/21/17 04:30 Dose: 75 mg Ondansetron HCl (Zofran) 4 mg IV Q8H PRN PRN Reason: N/V unrelieved by Reglan Last Admin: 01/18/17 13:32 Dose: 4 mg Pantoprazole (Protonix) 40 mg FEEDTUBE DAILY [facility] Last Admin: 01/21/17 09:53 Dose: 40 mg Scopolamine (Transderm-Scop) 1 each TD Q3D AGUSTIN Last Admin: 01/19/17 13:10 Dose: 1 each Simple Syrup (Simple Syrup) 15 ml FEEDTUBE PRN PRN PRN Reason: Hypoglycemia Simple Syrup (Simple Syrup) 30 ml FEEDTUBE PRN PRN PRN Reason: Hypoglycemia Sodium Bicarbonate (Sodium Bicarbonate) 325 mg FEEDTUBE PRN PRN PRN Reason: For Clogged Feeding Tube Physical Examination - Vital Signs Vital Signs: Vital Signs Temp Pulse Resp BP Pulse Ox 98.4 F 88 18 104/80 98 09/03/16 00:00 09/03/16 00:00 09/03/16 00:00 09/03/16 00:00 09/03/16 00:00 Results - Laboratory Findings CBC and BMP: 01/15/17 12:45 01/21/17 04:00 Abnormal Lab Findings: Abnormal Labs 09/03/16 09/03/16 09/03/16 00:03 00:10 00:10 WBC 13.9 H RBC 5.95 H Hgb Hct 44.0 H MCV 74 L MCH 22 L MCHC RDW 17.5 H Plt Count Lymph % (Auto) Glynn % (Auto) Lymph # Glynn # Baso # Seg Neutrophils % Seg Neuts % (Manual) Lymphocytes % (Manual) 54.0 H Monocytes % (Manual) Eosinophils % (Manual) Basophils % (Manual) Nucleated RBC % Seg Neutrophils # Seg Neutrophils # Man Lymphocytes # (Manual) 7.5 H Monocytes # (Manual) Eosinophils # (Manual) Basophils # (Manual) PT INR Fibrinogen dRVVT Confirm Interp Factor V Activity POC ABG pH POC ABG pCO2 POC ABG pO2 ABG pO2 ABG HCO3 ABG Base Excess ABG Hemoglobin Oxyhemoglobin Sodium Potassium 2.8 L* Chloride Carbon Dioxide 21 L BUN Creatinine 1.7 H Glucose 159 H POC Glucose 177 H Lactic Acid Calcium Phosphorus Magnesium Direct Bilirubin AST ALT Alkaline Phosphatase Lactate Dehydrogenase Troponin T C-Reactive Protein Total Protein Albumin Prealbumin Triglycerides Cholesterol LDL Cholesterol Direct HDL Cholesterol Urine pH Urine WBC (Auto) Urine Creatinine Urine Total Protein Fluid Total Protein Vancomycin Trough Rheumatoid Factor Complement C4 Miscellaneous Test Crossmatch 09/03/16 09/03/16 09/03/16 12:12 15:07 16:20 WBC RBC Hgb Hct MCV MCH MCHC RDW Plt Count Lymph % (Auto) Glynn % (Auto) Lymph # Glynn # Baso # Seg Neutrophils % Seg Neuts % (Manual) Lymphocytes % (Manual) Monocytes % (Manual) Eosinophils % (Manual) Basophils % (Manual) Nucleated RBC % Seg Neutrophils # Seg Neutrophils # Man Lymphocytes # (Manual) Monocytes # (Manual) Eosinophils # (Manual) Basophils # (Manual) PT INR Fibrinogen dRVVT Confirm Interp Factor V Activity POC ABG pH 7.452 H POC ABG pCO2 POC ABG pO2 ABG pO2 ABG HCO3 ABG Base Excess ABG Hemoglobin Oxyhemoglobin Sodium Potassium Chloride Carbon Dioxide BUN Creatinine Glucose POC Glucose 178 H Lactic Acid Calcium Phosphorus 2.20 L Magnesium 1.60 L Direct Bilirubin AST ALT Alkaline Phosphatase Lactate Dehydrogenase Troponin T C-Reactive Protein Total Protein Albumin Prealbumin Triglycerides Cholesterol LDL Cholesterol Direct HDL Cholesterol Urine pH Urine WBC (Auto) Urine Creatinine Urine Total Protein Fluid Total Protein Vancomycin Trough Rheumatoid Factor Complement C4 Miscellaneous Test Crossmatch 09/03/16 09/03/16 09/03/16 17:57 17:58 23:50 WBC RBC Hgb Hct MCV MCH MCHC RDW Plt Count Lymph % (Auto) Glynn % (Auto) Lymph # Glynn # Baso # Seg Neutrophils % Seg Neuts % (Manual) Lymphocytes % (Manual) Monocytes % (Manual) Eosinophils % (Manual) Basophils % (Manual) Nucleated RBC % Seg Neutrophils # Seg Neutrophils # Man Lymphocytes # (Manual) Monocytes # (Manual) Eosinophils # (Manual) Basophils # (Manual) PT INR Fibrinogen dRVVT Confirm Interp Factor V Activity POC ABG pH POC ABG pCO2 POC ABG pO2 ABG pO2 ABG HCO3 ABG Base Excess ABG Hemoglobin Oxyhemoglobin Sodium Potassium Chloride Carbon Dioxide BUN Creatinine Glucose POC Glucose 162 H 145 H Lactic Acid Calcium Phosphorus 2.30 L Magnesium Direct Bilirubin AST ALT Alkaline Phosphatase Lactate Dehydrogenase Troponin T C-Reactive Protein Total Protein Albumin Prealbumin Triglycerides Cholesterol LDL Cholesterol Direct HDL Cholesterol Urine pH Urine WBC (Auto) Urine Creatinine Urine Total Protein Fluid Total Protein Vancomycin Trough Rheumatoid Factor Complement C4 Miscellaneous Test Crossmatch 09/04/16 09/04/16 09/04/16 03:31 03:31 05:42 WBC RBC Hgb 9.7 L D Hct MCV 72 L MCH 23 L MCHC RDW 17.5 H Plt Count Lymph % (Auto) 11.1 L Glynn % (Auto) Lymph # Glynn # Baso # Seg Neutrophils % 84.3 H Seg Neuts % (Manual) Lymphocytes % (Manual) Monocytes % (Manual) Eosinophils % (Manual) Basophils % (Manual) Nucleated RBC % Seg Neutrophils # 8.9 H Seg Neutrophils # Man Lymphocytes # (Manual) Monocytes # (Manual) Eosinophils # (Manual) Basophils # (Manual) PT INR Fibrinogen dRVVT Confirm Interp Factor V Activity POC ABG pH POC ABG pCO2 POC ABG pO2 ABG pO2 ABG HCO3 ABG Base Excess ABG Hemoglobin Oxyhemoglobin Sodium 135 L Potassium 2.9 L* Chloride 97.2 L Carbon Dioxide 19 L BUN Creatinine 1.7 H Glucose 170 H POC Glucose 152 H Lactic Acid Calcium Phosphorus Magnesium Direct Bilirubin AST ALT Alkaline Phosphatase Lactate Dehydrogenase Troponin T C-Reactive Protein Total Protein Albumin Prealbumin Triglycerides 160 H Cholesterol LDL Cholesterol Direct HDL Cholesterol 31 L Urine pH Urine WBC (Auto) Urine Creatinine Urine Total Protein Fluid Total Protein Vancomycin Trough Rheumatoid Factor Complement C4 Miscellaneous Test Crossmatch 09/04/16 09/04/16 09/04/16 11:34 17:46 23:29 WBC RBC Hgb Hct MCV MCH MCHC RDW Plt Count Lymph % (Auto) Glynn % (Auto) Lymph # Glynn # Baso # Seg Neutrophils % Seg Neuts % (Manual) Lymphocytes % (Manual) Monocytes % (Manual) Eosinophils % (Manual) Basophils % (Manual) Nucleated RBC % Seg Neutrophils # Seg Neutrophils # Man Lymphocytes # (Manual) Monocytes # (Manual) Eosinophils # (Manual) Basophils # (Manual) PT INR Fibrinogen dRVVT Confirm Interp Factor V Activity POC ABG pH POC ABG pCO2 POC ABG pO2 ABG pO2 ABG HCO3 ABG Base Excess ABG Hemoglobin Oxyhemoglobin Sodium Potassium Chloride Carbon Dioxide BUN Creatinine Glucose POC Glucose 165 H 210 H 139 H Lactic Acid Calcium Phosphorus Magnesium Direct Bilirubin AST ALT Alkaline Phosphatase Lactate Dehydrogenase Troponin T C-Reactive Protein Total Protein Albumin Prealbumin Triglycerides Cholesterol LDL Cholesterol Direct HDL Cholesterol Urine pH Urine WBC (Auto) Urine Creatinine Urine Total Protein Fluid Total Protein Vancomycin Trough Rheumatoid Factor Complement C4 Miscellaneous Test Crossmatch 09/05/16 09/05/16 09/05/16 04:05 04:05 05:38 WBC RBC Hgb Hct MCV 76 L D MCH 23 L MCHC RDW 17.8 H Plt Count Lymph % (Auto) Glynn % (Auto) Lymph # Glynn # Baso # Seg Neutrophils % Seg Neuts % (Manual) Lymphocytes % (Manual) Monocytes % (Manual) Eosinophils % (Manual) Basophils % (Manual) Nucleated RBC % Seg Neutrophils # Seg Neutrophils # Man Lymphocytes # (Manual) Monocytes # (Manual) Eosinophils # (Manual) Basophils # (Manual) PT INR Fibrinogen dRVVT Confirm Interp Factor V Activity POC ABG pH POC ABG pCO2 POC ABG pO2 ABG pO2 ABG HCO3 ABG Base Excess ABG Hemoglobin Oxyhemoglobin Sodium 134 L Potassium Chloride Carbon Dioxide 18 L BUN Creatinine 1.8 H Glucose 192 H POC Glucose 175 H Lactic Acid Calcium Phosphorus Magnesium Direct Bilirubin AST ALT Alkaline Phosphatase Lactate Dehydrogenase Troponin T C-Reactive Protein Total Protein Albumin Prealbumin Triglycerides Cholesterol LDL Cholesterol Direct HDL Cholesterol Urine pH Urine WBC (Auto) Urine Creatinine Urine Total Protein Fluid Total Protein Vancomycin Trough Rheumatoid Factor Complement C4 Miscellaneous Test Crossmatch 09/05/16 09/05/16 09/05/16 11:38 17:48 23:22 WBC RBC Hgb Hct MCV MCH MCHC RDW Plt Count Lymph % (Auto) Glynn % (Auto) Lymph # Glynn # Baso # Seg Neutrophils % Seg Neuts % (Manual) Lymphocytes % (Manual) Monocytes % (Manual) Eosinophils % (Manual) Basophils % (Manual) Nucleated RBC % Seg Neutrophils # Seg Neutrophils # Man Lymphocytes # (Manual) Monocytes # (Manual) Eosinophils # (Manual) Basophils # (Manual) PT INR Fibrinogen dRVVT Confirm Interp Factor V Activity POC ABG pH POC ABG pCO2 POC ABG pO2 ABG pO2 ABG HCO3 ABG Base Excess ABG Hemoglobin Oxyhemoglobin Sodium Potassium Chloride Carbon Dioxide BUN Creatinine Glucose POC Glucose 164 H 186 H 195 H Lactic Acid Calcium Phosphorus Magnesium Direct Bilirubin AST ALT Alkaline Phosphatase Lactate Dehydrogenase Troponin T C-Reactive Protein Total Protein Albumin Prealbumin Triglycerides Cholesterol LDL Cholesterol Direct HDL Cholesterol Urine pH Urine WBC (Auto) Urine Creatinine Urine Total Protein Fluid Total Protein Vancomycin Trough Rheumatoid Factor Complement C4 Miscellaneous Test Crossmatch 09/06/16 09/06/16 09/06/16 04:12 05:59 07:32 WBC RBC Hgb Hct MCV MCH MCHC RDW Plt Count Lymph % (Auto) Glynn % (Auto) Lymph # Glynn # Baso # Seg Neutrophils % Seg Neuts % (Manual) Lymphocytes % (Manual) Monocytes % (Manual) Eosinophils % (Manual) Basophils % (Manual) Nucleated RBC % Seg Neutrophils # Seg Neutrophils # Man Lymphocytes # (Manual) Monocytes # (Manual) Eosinophils # (Manual) Basophils # (Manual) PT INR Fibrinogen dRVVT Confirm Interp Factor V Activity POC ABG pH 7.514 H POC ABG pCO2 29.1 L POC ABG pO2 72 L ABG pO2 ABG HCO3 ABG Base Excess ABG Hemoglobin Oxyhemoglobin Sodium 133 L Potassium 3.4 L Chloride 94.9 L Carbon Dioxide 19 L BUN 30 H Creatinine 2.1 H Glucose 139 H POC Glucose 146 H Lactic Acid Calcium Phosphorus Magnesium Direct Bilirubin AST ALT Alkaline Phosphatase Lactate Dehydrogenase Troponin T C-Reactive Protein Total Protein Albumin Prealbumin Triglycerides Cholesterol LDL Cholesterol Direct HDL Cholesterol Urine pH Urine WBC (Auto) Urine Creatinine Urine Total Protein Fluid Total Protein Vancomycin Trough Rheumatoid Factor Complement C4 Miscellaneous Test Crossmatch 09/06/16 09/06/16 09/06/16 11:57 17:58 19:02 WBC RBC Hgb Hct MCV MCH MCHC RDW Plt Count Lymph % (Auto) Glynn % (Auto) Lymph # Glynn # Baso # Seg Neutrophils % Seg Neuts % (Manual) Lymphocytes % (Manual) Monocytes % (Manual) Eosinophils % (Manual) Basophils % (Manual) Nucleated RBC % Seg Neutrophils # Seg Neutrophils # Man Lymphocytes # (Manual) Monocytes # (Manual) Eosinophils # (Manual) Basophils # (Manual) PT INR Fibrinogen dRVVT Confirm Interp Factor V Activity POC ABG pH 7.465 H POC ABG pCO2 32.0 L POC ABG pO2 ABG pO2 ABG HCO3 ABG Base Excess ABG Hemoglobin Oxyhemoglobin Sodium Potassium Chloride Carbon Dioxide BUN Creatinine Glucose POC Glucose 165 H 160 H Lactic Acid Calcium Phosphorus Magnesium Direct Bilirubin AST ALT Alkaline Phosphatase Lactate Dehydrogenase Troponin T C-Reactive Protein Total Protein Albumin Prealbumin Triglycerides Cholesterol LDL Cholesterol Direct HDL Cholesterol Urine pH Urine WBC (Auto) Urine Creatinine Urine Total Protein Fluid Total Protein Vancomycin Trough Rheumatoid Factor Complement C4 Miscellaneous Test Crossmatch 09/06/16 09/07/16 09/07/16 23:45 02:47 02:47 WBC RBC Hgb Hct MCV MCH MCHC RDW Plt Count Lymph % (Auto) Glynn % (Auto) Lymph # Glynn # Baso # Seg Neutrophils % Seg Neuts % (Manual) Lymphocytes % (Manual) Monocytes % (Manual) Eosinophils % (Manual) Basophils % (Manual) Nucleated RBC % Seg Neutrophils # Seg Neutrophils # Man Lymphocytes # (Manual) Monocytes # (Manual) Eosinophils # (Manual) Basophils # (Manual) PT INR Fibrinogen dRVVT Confirm Interp Factor V Activity POC ABG pH POC ABG pCO2 POC ABG pO2 ABG pO2 ABG HCO3 ABG Base Excess ABG Hemoglobin Oxyhemoglobin Sodium Potassium Chloride Carbon Dioxide BUN Creatinine Glucose POC Glucose 204 H Lactic Acid Calcium Phosphorus Magnesium Direct Bilirubin AST ALT Alkaline Phosphatase Lactate Dehydrogenase Troponin T C-Reactive Protein Total Protein Albumin Prealbumin Triglycerides Cholesterol LDL Cholesterol Direct HDL Cholesterol Urine pH Urine WBC (Auto) 68.0 H Urine Creatinine 106.1 H Urine Total Protein Fluid Total Protein Vancomycin Trough Rheumatoid Factor Complement C4 Miscellaneous Test Crossmatch 09/07/16 09/07/16 09/07/16 04:50 06:19 06:39 WBC RBC Hgb Hct MCV MCH MCHC RDW Plt Count Lymph % (Auto) Glynn % (Auto) Lymph # Glynn # Baso # Seg Neutrophils % Seg Neuts % (Manual) Lymphocytes % (Manual) Monocytes % (Manual) Eosinophils % (Manual) Basophils % (Manual) Nucleated RBC % Seg Neutrophils # Seg Neutrophils # Man Lymphocytes # (Manual) Monocytes # (Manual) Eosinophils # (Manual) Basophils # (Manual) PT INR Fibrinogen dRVVT Confirm Interp Factor V Activity POC ABG pH 7.457 H POC ABG pCO2 32.1 L POC ABG pO2 76 L ABG pO2 ABG HCO3 ABG Base Excess ABG Hemoglobin Oxyhemoglobin Sodium 132 L Potassium Chloride 94.7 L Carbon Dioxide BUN 53 H Creatinine 2.9 H Glucose 151 H POC Glucose 149 H Lactic Acid Calcium Phosphorus Magnesium Direct Bilirubin AST ALT Alkaline Phosphatase Lactate Dehydrogenase Troponin T C-Reactive Protein Total Protein Albumin Prealbumin Triglycerides Cholesterol LDL Cholesterol Direct HDL Cholesterol Urine pH Urine WBC (Auto) Urine Creatinine Urine Total Protein Fluid Total Protein Vancomycin Trough Rheumatoid Factor Complement C4 Miscellaneous Test Crossmatch 09/07/16 09/07/16 09/07/16 09:20 11:43 11:43 WBC 19.4 H RBC Hgb 8.3 L Hct 26.4 L D MCV 72 L D MCH 22 L MCHC RDW 17.9 H Plt Count Lymph % (Auto) 8.5 L Glynn % (Auto) Lymph # Glynn # 1.0 H Baso # Seg Neutrophils % 85.8 H Seg Neuts % (Manual) Lymphocytes % (Manual) Monocytes % (Manual) Eosinophils % (Manual) Basophils % (Manual) Nucleated RBC % Seg Neutrophils # 16.6 H Seg Neutrophils # Man Lymphocytes # (Manual) Monocytes # (Manual) Eosinophils # (Manual) Basophils # (Manual) PT INR Fibrinogen dRVVT Confirm Interp Factor V Activity POC ABG pH POC ABG pCO2 POC ABG pO2 ABG pO2 ABG HCO3 ABG Base Excess ABG Hemoglobin Oxyhemoglobin Sodium 134 L Potassium Chloride 97.2 L Carbon Dioxide 20 L BUN 58 H Creatinine 2.9 H Glucose 147 H POC Glucose Lactic Acid Calcium Phosphorus 2.40 L Magnesium 2.40 H Direct Bilirubin AST ALT Alkaline Phosphatase Lactate Dehydrogenase Troponin T C-Reactive Protein Total Protein 5.8 L Albumin 2.2 L Prealbumin Triglycerides Cholesterol LDL Cholesterol Direct HDL Cholesterol Urine pH Urine WBC (Auto) Urine Creatinine Urine Total Protein Fluid Total Protein Vancomycin Trough Rheumatoid Factor Complement C4 58 H Miscellaneous Test Crossmatch 09/07/16 09/07/16 09/07/16 11:50 16:00 17:31 WBC RBC Hgb Hct MCV MCH MCHC RDW Plt Count Lymph % (Auto) Glynn % (Auto) Lymph # Glynn # Baso # Seg Neutrophils % Seg Neuts % (Manual) Lymphocytes % (Manual) Monocytes % (Manual) Eosinophils % (Manual) Basophils % (Manual) Nucleated RBC % Seg Neutrophils # Seg Neutrophils # Man Lymphocytes # (Manual) Monocytes # (Manual) Eosinophils # (Manual) Basophils # (Manual) PT INR Fibrinogen dRVVT Confirm Interp Factor V Activity POC ABG pH POC ABG pCO2 POC ABG pO2 158 H ABG pO2 ABG HCO3 ABG Base Excess ABG Hemoglobin Oxyhemoglobin Sodium Potassium Chloride Carbon Dioxide BUN Creatinine Glucose POC Glucose 175 H Lactic Acid Calcium Phosphorus Magnesium Direct Bilirubin AST ALT Alkaline Phosphatase Lactate Dehydrogenase Troponin T C-Reactive Protein Total Protein Albumin Prealbumin Triglycerides Cholesterol LDL Cholesterol Direct HDL Cholesterol Urine pH Urine WBC (Auto) Urine Creatinine 66.3 H Urine Total Protein Fluid Total Protein Vancomycin Trough Rheumatoid Factor Complement C4 Miscellaneous Test Crossmatch 09/07/16 09/08/16 09/08/16 23:50 05:46 06:18 WBC 17.8 H RBC 3.58 L Hgb 8.1 L Hct 25.5 L MCV 71 L MCH 23 L MCHC RDW 18.4 H Plt Count Lymph % (Auto) Glynn % (Auto) Lymph # Glynn # Baso # Seg Neutrophils % Seg Neuts % (Manual) 92.0 H Lymphocytes % (Manual) 6.0 L Monocytes % (Manual) Eosinophils % (Manual) Basophils % (Manual) Nucleated RBC % Seg Neutrophils # Seg Neutrophils # Man 16.4 H Lymphocytes # (Manual) 1.1 L Monocytes # (Manual) Eosinophils # (Manual) Basophils # (Manual) PT INR Fibrinogen dRVVT Confirm Interp Factor V Activity POC ABG pH POC ABG pCO2 34.3 L POC ABG pO2 71 L ABG pO2 ABG HCO3 ABG Base Excess ABG Hemoglobin Oxyhemoglobin Sodium Potassium Chloride Carbon Dioxide BUN Creatinine Glucose POC Glucose 216 H Lactic Acid Calcium Phosphorus Magnesium Direct Bilirubin AST ALT Alkaline Phosphatase Lactate Dehydrogenase Troponin T C-Reactive Protein Total Protein Albumin Prealbumin Triglycerides Cholesterol LDL Cholesterol Direct HDL Cholesterol Urine pH Urine WBC (Auto) Urine Creatinine Urine Total Protein Fluid Total Protein Vancomycin Trough Rheumatoid Factor Complement C4 Miscellaneous Test Crossmatch 09/08/16 09/08/16 09/08/16 06:18 06:51 10:55 WBC RBC Hgb Hct MCV MCH MCHC RDW Plt Count Lymph % (Auto) Glynn % (Auto) Lymph # Glynn # Baso # Seg Neutrophils % Seg Neuts % (Manual) Lymphocytes % (Manual) Monocytes % (Manual) Eosinophils % (Manual) Basophils % (Manual) Nucleated RBC % Seg Neutrophils # Seg Neutrophils # Man Lymphocytes # (Manual) Monocytes # (Manual) Eosinophils # (Manual) Basophils # (Manual) PT INR Fibrinogen dRVVT Confirm Interp Factor V Activity POC ABG pH POC ABG pCO2 POC ABG pO2 ABG pO2 ABG HCO3 ABG Base Excess ABG Hemoglobin Oxyhemoglobin Sodium 133 L Potassium Chloride 96.9 L Carbon Dioxide 20 L BUN 63 H Creatinine 2.7 H Glucose 195 H POC Glucose 204 H 169 H Lactic Acid Calcium Phosphorus Magnesium Direct Bilirubin AST ALT Alkaline Phosphatase Lactate Dehydrogenase Troponin T C-Reactive Protein Total Protein Albumin Prealbumin Triglycerides Cholesterol LDL Cholesterol Direct HDL Cholesterol Urine pH Urine WBC (Auto) Urine Creatinine Urine Total Protein Fluid Total Protein Vancomycin Trough Rheumatoid Factor Complement C4 Miscellaneous Test Crossmatch 09/08/16 09/08/16 09/08/16 11:48 11:48 11:48 WBC RBC Hgb Hct MCV MCH MCHC RDW Plt Count Lymph % (Auto) Glynn % (Auto) Lymph # Glynn # Baso # Seg Neutrophils % Seg Neuts % (Manual) Lymphocytes % (Manual) Monocytes % (Manual) Eosinophils % (Manual) Basophils % (Manual) Nucleated RBC % Seg Neutrophils # Seg Neutrophils # Man Lymphocytes # (Manual) Monocytes # (Manual) Eosinophils # (Manual) Basophils # (Manual) PT INR Fibrinogen 750 H dRVVT Confirm Interp Factor V Activity POC ABG pH POC ABG pCO2 POC ABG pO2 ABG pO2 ABG HCO3 ABG Base Excess ABG Hemoglobin Oxyhemoglobin Sodium Potassium Chloride Carbon Dioxide BUN Creatinine Glucose POC Glucose Lactic Acid Calcium Phosphorus Magnesium Direct Bilirubin AST ALT Alkaline Phosphatase Lactate Dehydrogenase Troponin T C-Reactive Protein 15.70 H Total Protein Albumin Prealbumin Triglycerides Cholesterol LDL Cholesterol Direct HDL Cholesterol Urine pH Urine WBC (Auto) Urine Creatinine Urine Total Protein Fluid Total Protein Vancomycin Trough Rheumatoid Factor 24 H Complement C4 Miscellaneous Test Crossmatch 09/08/16 09/08/16 09/09/16 15:35 18:25 00:24 WBC RBC Hgb Hct MCV MCH MCHC RDW Plt Count Lymph % (Auto) Glynn % (Auto) Lymph # Glynn # Baso # Seg Neutrophils % Seg Neuts % (Manual) Lymphocytes % (Manual) Monocytes % (Manual) Eosinophils % (Manual) Basophils % (Manual) Nucleated RBC % Seg Neutrophils # Seg Neutrophils # Man Lymphocytes # (Manual) Monocytes # (Manual) Eosinophils # (Manual) Basophils # (Manual) PT INR Fibrinogen dRVVT Confirm Interp Factor V Activity 182 H POC ABG pH POC ABG pCO2 POC ABG pO2 ABG pO2 ABG HCO3 ABG Base Excess ABG Hemoglobin Oxyhemoglobin Sodium Potassium Chloride Carbon Dioxide BUN Creatinine Glucose POC Glucose 184 H 216 H Lactic Acid Calcium Phosphorus Magnesium Direct Bilirubin AST ALT Alkaline Phosphatase Lactate Dehydrogenase Troponin T C-Reactive Protein Total Protein Albumin Prealbumin Triglycerides Cholesterol LDL Cholesterol Direct HDL Cholesterol Urine pH Urine WBC (Auto) Urine Creatinine Urine Total Protein Fluid Total Protein Vancomycin Trough Rheumatoid Factor Complement C4 Miscellaneous Test Crossmatch 09/09/16 09/09/16 09/09/16 03:00 03:00 04:04 WBC 27.9 H RBC Hgb 8.7 L Hct 28.1 L MCV 72 L MCH 22 L MCHC RDW 18.4 H Plt Count 485 H Lymph % (Auto) [place]nn % (Auto) Lymph # [place]nn # Baso # Seg Neutrophils % Seg Neuts % (Manual) 77.0 H Lymphocytes % (Manual) 9.0 L Monocytes % (Manual) Eosinophils % (Manual) Basophils % (Manual) Nucleated RBC % Seg Neutrophils # Seg Neutrophils # Man 21.5 H Lymphocytes # (Manual) Monocytes # (Manual) 2.0 H Eosinophils # (Manual) Basophils # (Manual) PT INR Fibrinogen dRVVT Confirm Interp Factor V Activity POC ABG pH POC ABG pCO2 POC ABG pO2 121 H ABG pO2 ABG HCO3 ABG Base Excess ABG Hemoglobin Oxyhemoglobin Sodium 135 L Potassium Chloride 96.3 L Carbon Dioxide 21 L BUN 83 H Creatinine 3.0 H Glucose 135 H POC Glucose Lactic Acid Calcium Phosphorus Magnesium Direct Bilirubin AST ALT Alkaline Phosphatase Lactate Dehydrogenase Troponin T C-Reactive Protein Total Protein Albumin Prealbumin Triglycerides Cholesterol LDL Cholesterol Direct HDL Cholesterol Urine pH Urine WBC (Auto) Urine Creatinine Urine Total Protein Fluid Total Protein Vancomycin Trough Rheumatoid Factor Complement C4 Miscellaneous Test Crossmatch 09/09/16 09/09/16 09/09/16 05:41 11:55 14:13 WBC RBC Hgb Hct MCV MCH MCHC RDW Plt Count Lymph % (Auto) [place]nn % (Auto) Lymph # [place]nn # Baso # Seg Neutrophils % Seg Neuts % (Manual) Lymphocytes % (Manual) Monocytes % (Manual) Eosinophils % (Manual) Basophils % (Manual) Nucleated RBC % Seg Neutrophils # Seg Neutrophils # Man Lymphocytes # (Manual) Monocytes # (Manual) Eosinophils # (Manual) Basophils # (Manual) PT INR Fibrinogen dRVVT Confirm Interp Factor V Activity POC ABG pH POC ABG pCO2 POC ABG pO2 ABG pO2 ABG HCO3 ABG Base Excess ABG Hemoglobin Oxyhemoglobin Sodium Potassium Chloride Carbon Dioxide BUN Creatinine Glucose POC Glucose 155 H 186 H Lactic Acid Calcium Phosphorus Magnesium Direct Bilirubin AST ALT Alkaline Phosphatase Lactate Dehydrogenase Troponin T C-Reactive Protein Total Protein Albumin Prealbumin Triglycerides Cholesterol LDL Cholesterol Direct HDL Cholesterol Urine pH Urine WBC (Auto) 25.0 H Urine Creatinine Urine Total Protein Fluid Total Protein Vancomycin Trough Rheumatoid Factor Complement C4 Miscellaneous Test Crossmatch 09/09/16 09/09/16 09/10/16 17:33 23:13 05:09 WBC RBC Hgb Hct MCV MCH MCHC RDW Plt Count Lymph % (Auto) [place]nn % (Auto) Lymph # [place] # Baso # Seg Neutrophils % Seg Neuts % (Manual) Lymphocytes % (Manual) Monocytes % (Manual) Eosinophils % (Manual) Basophils % (Manual) Nucleated RBC % Seg Neutrophils # Seg Neutrophils # Man Lymphocytes # (Manual) Monocytes # (Manual) Eosinophils # (Manual) Basophils # (Manual) PT INR Fibrinogen dRVVT Confirm Interp Factor V Activity POC ABG pH POC ABG pCO2 POC ABG pO2 74 L ABG pO2 ABG HCO3 ABG Base Excess ABG Hemoglobin Oxyhemoglobin Sodium Potassium Chloride Carbon Dioxide BUN Creatinine Glucose POC Glucose 211 H 215 H Lactic Acid Calcium Phosphorus Magnesium Direct Bilirubin AST ALT Alkaline Phosphatase Lactate Dehydrogenase Troponin T C-Reactive Protein Total Protein Albumin Prealbumin Triglycerides Cholesterol LDL Cholesterol Direct HDL Cholesterol Urine pH Urine WBC (Auto) Urine Creatinine Urine Total Protein Fluid Total Protein Vancomycin Trough Rheumatoid Factor Complement C4 Miscellaneous Test Crossmatch 09/10/16 09/10/16 09/10/16 05:17 05:17 11:31 WBC 15.8 H RBC 3.25 L Hgb 7.3 L Hct 22.9 L MCV 71 L MCH 23 L MCHC RDW 18.4 H Plt Count Lymph % (Auto) [place]nn % (Auto) Lymph # [place] # Baso # Seg Neutrophils % Seg Neuts % (Manual) 91.0 H Lymphocytes % (Manual) 4.0 L Monocytes % (Manual) Eosinophils % (Manual) Basophils % (Manual) Nucleated RBC % Seg Neutrophils # Seg Neutrophils # Man 14.4 H Lymphocytes # (Manual) 0.6 L Monocytes # (Manual) Eosinophils # (Manual) Basophils # (Manual) PT INR Fibrinogen dRVVT Confirm Interp Factor V Activity POC ABG pH POC ABG pCO2 POC ABG pO2 ABG pO2 ABG HCO3 ABG Base Excess ABG Hemoglobin Oxyhemoglobin Sodium Potassium Chloride Carbon Dioxide 21 L BUN 93 H Creatinine 2.9 H Glucose 146 H POC Glucose 188 H Lactic Acid Calcium 8.1 L Phosphorus Magnesium Direct Bilirubin AST ALT Alkaline Phosphatase Lactate Dehydrogenase Troponin T C-Reactive Protein Total Protein Albumin Prealbumin Triglycerides Cholesterol LDL Cholesterol Direct HDL Cholesterol Urine pH Urine WBC (Auto) Urine Creatinine Urine Total Protein Fluid Total Protein Vancomycin Trough Rheumatoid Factor Complement C4 Miscellaneous Test Crossmatch 09/10/16 09/10/16 09/10/16 13:17 17:20 23:32 WBC RBC Hgb Hct MCV MCH MCHC RDW Plt Count Lymph % (Auto) [place]nn % (Auto) Lymph # [place] # Baso # Seg Neutrophils % Seg Neuts % (Manual) Lymphocytes % (Manual) Monocytes % (Manual) Eosinophils % (Manual) Basophils % (Manual) Nucleated RBC % Seg Neutrophils # Seg Neutrophils # Man Lymphocytes # (Manual) Monocytes # (Manual) Eosinophils # (Manual) Basophils # (Manual) PT INR Fibrinogen dRVVT Confirm Interp Factor V Activity POC ABG pH POC ABG pCO2 POC ABG pO2 ABG pO2 ABG HCO3 ABG Base Excess ABG Hemoglobin Oxyhemoglobin Sodium Potassium Chloride Carbon Dioxide BUN Creatinine Glucose POC Glucose 199 H 186 H Lactic Acid Calcium Phosphorus Magnesium Direct Bilirubin AST ALT Alkaline Phosphatase Lactate Dehydrogenase Troponin T C-Reactive Protein Total Protein Albumin Prealbumin Triglycerides Cholesterol LDL Cholesterol Direct HDL Cholesterol Urine pH Urine WBC (Auto) Urine Creatinine Urine Total Protein Fluid Total Protein Vancomycin Trough Rheumatoid Factor Complement C4 Miscellaneous Test Crossmatch See Detail 09/11/16 09/11/16 09/11/16 05:10 05:10 05:17 WBC 28.4 H RBC Hgb 9.2 L Hct 29.3 L D MCV 73 L MCH 23 L MCHC RDW 18.9 H Plt Count 452 H Lymph % (Auto) [place] % (Auto) Lymph # [place] # Baso # Seg Neutrophils % Seg Neuts % (Manual) 89.5 H Lymphocytes % (Manual) 2.0 L Monocytes % (Manual) Eosinophils % (Manual) Basophils % (Manual) Nucleated RBC % Seg Neutrophils # Seg Neutrophils # Man 25.4 H Lymphocytes # (Manual) 0.6 L Monocytes # (Manual) 1.3 H Eosinophils # (Manual) Basophils # (Manual) PT INR Fibrinogen dRVVT Confirm Interp Factor V Activity POC ABG pH POC ABG pCO2 POC ABG pO2 ABG pO2 ABG HCO3 ABG Base Excess ABG Hemoglobin Oxyhemoglobin Sodium 136 L Potassium Chloride Carbon Dioxide 18 L BUN 107 H Creatinine 2.6 H Glucose 187 H POC Glucose 230 H Lactic Acid Calcium 8.3 L Phosphorus Magnesium Direct Bilirubin AST ALT Alkaline Phosphatase Lactate Dehydrogenase Troponin T C-Reactive Protein Total Protein Albumin Prealbumin Triglycerides Cholesterol LDL Cholesterol Direct HDL Cholesterol Urine pH Urine WBC (Auto) Urine Creatinine Urine Total Protein Fluid Total Protein Vancomycin Trough Rheumatoid Factor Complement C4 Miscellaneous Test Crossmatch 09/11/16 09/11/16 09/11/16 05:55 12:02 17:32 WBC RBC Hgb Hct MCV MCH MCHC RDW Plt Count Lymph % (Auto) [place]nn % (Auto) Lymph # [place] # Baso # Seg Neutrophils % Seg Neuts % (Manual) Lymphocytes % (Manual) Monocytes % (Manual) Eosinophils % (Manual) Basophils % (Manual) Nucleated RBC % Seg Neutrophils # Seg Neutrophils # Man Lymphocytes # (Manual) Monocytes # (Manual) Eosinophils # (Manual) Basophils # (Manual) PT INR Fibrinogen dRVVT Confirm Interp Factor V Activity POC ABG pH POC ABG pCO2 33.8 L POC ABG pO2 ABG pO2 ABG HCO3 ABG Base Excess ABG Hemoglobin Oxyhemoglobin Sodium Potassium Chloride Carbon Dioxide BUN Creatinine Glucose POC Glucose 191 H 239 H Lactic Acid Calcium Phosphorus Magnesium Direct Bilirubin AST ALT Alkaline Phosphatase Lactate Dehydrogenase Troponin T C-Reactive Protein Total Protein Albumin Prealbumin Triglycerides Cholesterol LDL Cholesterol Direct HDL Cholesterol Urine pH Urine WBC (Auto) Urine Creatinine Urine Total Protein Fluid Total Protein Vancomycin Trough Rheumatoid Factor Complement C4 Miscellaneous Test Crossmatch 09/11/16 09/12/16 09/12/16 23:52 05:09 05:32 WBC RBC Hgb Hct MCV MCH MCHC RDW Plt Count Lymph % (Auto) [place]nn % (Auto) Lymph # [place] # Baso # Seg Neutrophils % Seg Neuts % (Manual) Lymphocytes % (Manual) Monocytes % (Manual) Eosinophils % (Manual) Basophils % (Manual) Nucleated RBC % Seg Neutrophils # Seg Neutrophils # Man Lymphocytes # (Manual) Monocytes # (Manual) Eosinophils # (Manual) Basophils # (Manual) PT INR Fibrinogen dRVVT Confirm Interp Factor V Activity POC ABG pH POC ABG pCO2 34.6 L POC ABG pO2 ABG pO2 ABG HCO3 ABG Base Excess ABG Hemoglobin Oxyhemoglobin Sodium Potassium Chloride Carbon Dioxide BUN Creatinine Glucose POC Glucose 265 H 184 H Lactic Acid Calcium Phosphorus Magnesium Direct Bilirubin AST ALT Alkaline Phosphatase Lactate Dehydrogenase Troponin T C-Reactive Protein Total Protein Albumin Prealbumin Triglycerides Cholesterol LDL Cholesterol Direct HDL Cholesterol Urine pH Urine WBC (Auto) Urine Creatinine Urine Total Protein Fluid Total Protein Vancomycin Trough Rheumatoid Factor Complement C4 Miscellaneous Test Crossmatch 09/12/16 09/12/16 09/12/16 06:45 06:45 07:22 WBC 31.7 H RBC 3.54 L Hgb 8.3 L Hct 25.9 L MCV 73 L MCH 23 L MCHC RDW 18.9 H Plt Count Lymph % (Auto) [place]nn % (Auto) Lymph # [place] # Baso # Seg Neutrophils % Seg Neuts % (Manual) 88.5 H Lymphocytes % (Manual) 4.5 L Monocytes % (Manual) Eosinophils % (Manual) Basophils % (Manual) Nucleated RBC % Seg Neutrophils # Seg Neutrophils # Man 28.1 H Lymphocytes # (Manual) Monocytes # (Manual) 1.0 H Eosinophils # (Manual) Basophils # (Manual) PT INR Fibrinogen dRVVT Confirm Interp Factor V Activity POC ABG pH POC ABG pCO2 POC ABG pO2 ABG pO2 ABG HCO3 ABG Base Excess ABG Hemoglobin Oxyhemoglobin Sodium Potassium Chloride Carbon Dioxide 20 L BUN 115 H Creatinine 2.7 H Glucose 165 H POC Glucose Lactic Acid Calcium 8.0 L Phosphorus Magnesium Direct Bilirubin AST ALT Alkaline Phosphatase Lactate Dehydrogenase Troponin T C-Reactive Protein Total Protein Albumin Prealbumin Triglycerides 217 H Cholesterol LDL Cholesterol Direct HDL Cholesterol Urine pH Urine WBC (Auto) Urine Creatinine Urine Total Protein Fluid Total Protein Vancomycin Trough Rheumatoid Factor Complement C4 Miscellaneous Test Crossmatch 09/12/16 09/12/16 09/12/16 07:22 09:59 12:21 WBC RBC Hgb Hct MCV MCH MCHC RDW Plt Count Lymph % (Auto) [place]nn % (Auto) Lymph # [place] # Baso # Seg Neutrophils % Seg Neuts % (Manual) Lymphocytes % (Manual) Monocytes % (Manual) Eosinophils % (Manual) Basophils % (Manual) Nucleated RBC % Seg Neutrophils # Seg Neutrophils # Man Lymphocytes # (Manual) Monocytes # (Manual) Eosinophils # (Manual) Basophils # (Manual) PT INR Fibrinogen dRVVT Confirm Interp Positive H Factor V Activity POC ABG pH POC ABG pCO2 POC ABG pO2 ABG pO2 ABG HCO3 ABG Base Excess ABG Hemoglobin Oxyhemoglobin Sodium Potassium Chloride Carbon Dioxide BUN Creatinine Glucose POC Glucose 224 H Lactic Acid Calcium Phosphorus Magnesium Direct Bilirubin AST ALT Alkaline Phosphatase Lactate Dehydrogenase Troponin T C-Reactive Protein 1.70 H Total Protein Albumin Prealbumin Triglycerides Cholesterol LDL Cholesterol Direct HDL Cholesterol Urine pH Urine WBC (Auto) Urine Creatinine Urine Total Protein Fluid Total Protein Vancomycin Trough Rheumatoid Factor Complement C4 Miscellaneous Test Crossmatch 09/12/16 09/12/16 09/13/16 16:51 23:28 04:00 WBC 45.0 H* RBC Hgb 9.4 L Hct MCV 75 L MCH 23 L MCHC RDW 19.0 H Plt Count 470 H Lymph % (Auto) [place] % (Auto) Lymph # [place] # Baso # Seg Neutrophils % Seg Neuts % (Manual) 89.0 H Lymphocytes % (Manual) 5.0 L Monocytes % (Manual) Eosinophils % (Manual) Basophils % (Manual) Nucleated RBC % Seg Neutrophils # Seg Neutrophils # Man 40.1 H Lymphocytes # (Manual) Monocytes # (Manual) Eosinophils # (Manual) Basophils # (Manual) PT INR Fibrinogen dRVVT Confirm Interp Factor V Activity POC ABG pH POC ABG pCO2 POC ABG pO2 ABG pO2 ABG HCO3 ABG Base Excess ABG Hemoglobin Oxyhemoglobin Sodium Potassium Chloride Carbon Dioxide BUN Creatinine Glucose POC Glucose 169 H 150 H Lactic Acid Calcium Phosphorus Magnesium Direct Bilirubin AST ALT Alkaline Phosphatase Lactate Dehydrogenase Troponin T C-Reactive Protein Total Protein Albumin Prealbumin Triglycerides Cholesterol LDL Cholesterol Direct HDL Cholesterol Urine pH Urine WBC (Auto) Urine Creatinine Urine Total Protein Fluid Total Protein Vancomycin Trough Rheumatoid Factor Complement C4 Miscellaneous Test Crossmatch 09/13/16 09/13/16 09/13/16 04:00 11:26 17:31 WBC RBC Hgb Hct MCV MCH MCHC RDW Plt Count Lymph % (Auto) [place]nn % (Auto) Lymph # [place] # Baso # Seg Neutrophils % Seg Neuts % (Manual) Lymphocytes % (Manual) Monocytes % (Manual) Eosinophils % (Manual) Basophils % (Manual) Nucleated RBC % Seg Neutrophils # Seg Neutrophils # Man Lymphocytes # (Manual) Monocytes # (Manual) Eosinophils # (Manual) Basophils # (Manual) PT INR Fibrinogen dRVVT Confirm Interp Factor V Activity POC ABG pH POC ABG pCO2 POC ABG pO2 ABG pO2 ABG HCO3 ABG Base Excess ABG Hemoglobin Oxyhemoglobin Sodium Potassium Chloride Carbon Dioxide 20 L BUN 116 H Creatinine 3.0 H Glucose 172 H POC Glucose 140 H 183 H Lactic Acid Calcium Phosphorus Magnesium Direct Bilirubin AST ALT Alkaline Phosphatase Lactate Dehydrogenase Troponin T C-Reactive Protein Total Protein 6.2 L Albumin 2.9 L Prealbumin Triglycerides Cholesterol LDL Cholesterol Direct HDL Cholesterol Urine pH Urine WBC (Auto) Urine Creatinine Urine Total Protein Fluid Total Protein Vancomycin Trough Rheumatoid Factor Complement C4 Miscellaneous Test Crossmatch 09/13/16 09/14/16 09/14/16 23:23 04:06 04:07 WBC 29.4 H RBC Hgb 8.9 L Hct 27.3 L MCV 75 L MCH 24 L MCHC RDW 19.1 H Plt Count Lymph % (Auto) [place]nn % (Auto) Lymph # [place] # Baso # Seg Neutrophils % Seg Neuts % (Manual) 84.0 H Lymphocytes % (Manual) 6.0 L Monocytes % (Manual) 9.0 H Eosinophils % (Manual) Basophils % (Manual) Nucleated RBC % Seg Neutrophils # Seg Neutrophils # Man 24.7 H Lymphocytes # (Manual) Monocytes # (Manual) 2.6 H Eosinophils # (Manual) Basophils # (Manual) PT INR Fibrinogen dRVVT Confirm Interp Factor V Activity POC ABG pH 7.342 L POC ABG pCO2 POC ABG pO2 116 H ABG pO2 ABG HCO3 ABG Base Excess ABG Hemoglobin Oxyhemoglobin Sodium Potassium Chloride Carbon Dioxide BUN Creatinine Glucose POC Glucose 154 H Lactic Acid Calcium Phosphorus Magnesium Direct Bilirubin AST ALT Alkaline Phosphatase Lactate Dehydrogenase Troponin T C-Reactive Protein Total Protein Albumin Prealbumin Triglycerides Cholesterol LDL Cholesterol Direct HDL Cholesterol Urine pH Urine WBC (Auto) Urine Creatinine Urine Total Protein Fluid Total Protein Vancomycin Trough Rheumatoid Factor Complement C4 Miscellaneous Test Crossmatch 09/14/16 09/14/16 09/14/16 04:07 05:29 12:19 WBC RBC Hgb Hct MCV MCH MCHC RDW Plt Count Lymph % (Auto) [place]nn % (Auto) Lymph # [place] # Baso # Seg Neutrophils % Seg Neuts % (Manual) Lymphocytes % (Manual) Monocytes % (Manual) Eosinophils % (Manual) Basophils % (Manual) Nucleated RBC % Seg Neutrophils # Seg Neutrophils # Man Lymphocytes # (Manual) Monocytes # (Manual) Eosinophils # (Manual) Basophils # (Manual) PT INR Fibrinogen dRVVT Confirm Interp Factor V Activity POC ABG pH POC ABG pCO2 POC ABG pO2 ABG pO2 ABG HCO3 ABG Base Excess ABG Hemoglobin Oxyhemoglobin Sodium 136 L Potassium Chloride Carbon Dioxide 18 L BUN 121 H Creatinine 2.8 H Glucose 214 H POC Glucose 239 H 181 H Lactic Acid Calcium Phosphorus Magnesium Direct Bilirubin AST ALT Alkaline Phosphatase Lactate Dehydrogenase Troponin T C-Reactive Protein Total Protein Albumin Prealbumin Triglycerides Cholesterol LDL Cholesterol Direct HDL Cholesterol Urine pH Urine WBC (Auto) Urine Creatinine Urine Total Protein Fluid Total Protein Vancomycin Trough Rheumatoid Factor Complement C4 Miscellaneous Test Crossmatch 09/14/16 09/14/16 09/15/16 18:12 23:37 05:00 WBC 26.1 H RBC 3.05 L Hgb 7.2 L Hct 22.9 L MCV 75 L MCH 24 L MCHC RDW 19.0 H Plt Count Lymph % (Auto) [place] % (Auto) Lymph # [place] # Baso # Seg Neutrophils % Seg Neuts % (Manual) Lymphocytes % (Manual) Monocytes % (Manual) Eosinophils % (Manual) Basophils % (Manual) Nucleated RBC % Seg Neutrophils # Seg Neutrophils # Man Lymphocytes # (Manual) Monocytes # (Manual) Eosinophils # (Manual) Basophils # (Manual) PT INR Fibrinogen dRVVT Confirm Interp Factor V Activity POC ABG pH POC ABG pCO2 POC ABG pO2 ABG pO2 ABG HCO3 ABG Base Excess ABG Hemoglobin Oxyhemoglobin Sodium Potassium Chloride Carbon Dioxide BUN Creatinine Glucose POC Glucose 266 H 154 H Lactic Acid Calcium Phosphorus Magnesium Direct Bilirubin AST ALT Alkaline Phosphatase Lactate Dehydrogenase Troponin T C-Reactive Protein Total Protein Albumin Prealbumin Triglycerides Cholesterol LDL Cholesterol Direct HDL Cholesterol Urine pH Urine WBC (Auto) Urine Creatinine Urine Total Protein Fluid Total Protein Vancomycin Trough Rheumatoid Factor Complement C4 Miscellaneous Test Crossmatch 09/15/16 09/15/16 09/15/16 05:00 05:17 12:45 WBC RBC Hgb Hct MCV MCH MCHC RDW Plt Count Lymph % (Auto) [place]nn % (Auto) Lymph # [place] # Baso # Seg Neutrophils % Seg Neuts % (Manual) Lymphocytes % (Manual) Monocytes % (Manual) Eosinophils % (Manual) Basophils % (Manual) Nucleated RBC % Seg Neutrophils # Seg Neutrophils # Man Lymphocytes # (Manual) Monocytes # (Manual) Eosinophils # (Manual) Basophils # (Manual) PT INR Fibrinogen dRVVT Confirm Interp Factor V Activity POC ABG pH POC ABG pCO2 POC ABG pO2 ABG pO2 ABG HCO3 ABG Base Excess ABG Hemoglobin Oxyhemoglobin Sodium Potassium 5.2 H Chloride Carbon Dioxide 18 L BUN 139 H Creatinine 3.7 H Glucose 227 H POC Glucose 226 H 244 H Lactic Acid Calcium 8.3 L Phosphorus Magnesium Direct Bilirubin AST ALT Alkaline Phosphatase Lactate Dehydrogenase Troponin T C-Reactive Protein Total Protein Albumin Prealbumin Triglycerides Cholesterol LDL Cholesterol Direct HDL Cholesterol Urine pH Urine WBC (Auto) Urine Creatinine Urine Total Protein Fluid Total Protein Vancomycin Trough Rheumatoid Factor Complement C4 Miscellaneous Test Crossmatch 09/15/16 09/15/16 09/15/16 14:32 17:33 23:35 WBC RBC Hgb Hct MCV MCH MCHC RDW Plt Count Lymph % (Auto) [place] % (Auto) Lymph # [place] # Baso # Seg Neutrophils % Seg Neuts % (Manual) Lymphocytes % (Manual) Monocytes % (Manual) Eosinophils % (Manual) Basophils % (Manual) Nucleated RBC % Seg Neutrophils # Seg Neutrophils # Man Lymphocytes # (Manual) Monocytes # (Manual) Eosinophils # (Manual) Basophils # (Manual) PT INR Fibrinogen dRVVT Confirm Interp Factor V Activity POC ABG pH POC ABG pCO2 27.7 L POC ABG pO2 120 H ABG pO2 ABG HCO3 ABG Base Excess ABG Hemoglobin Oxyhemoglobin Sodium Potassium Chloride Carbon Dioxide BUN Creatinine Glucose POC Glucose 232 H 167 H Lactic Acid Calcium Phosphorus Magnesium Direct Bilirubin AST ALT Alkaline Phosphatase Lactate Dehydrogenase Troponin T C-Reactive Protein Total Protein Albumin Prealbumin Triglycerides Cholesterol LDL Cholesterol Direct HDL Cholesterol Urine pH Urine WBC (Auto) Urine Creatinine Urine Total Protein Fluid Total Protein Vancomycin Trough Rheumatoid Factor Complement C4 Miscellaneous Test Crossmatch 09/16/16 09/16/16 09/16/16 03:58 10:27 10:27 WBC 19.0 H RBC 2.77 L Hgb 6.5 L Hct 20.9 L MCV 76 L MCH 23 L MCHC RDW 19.3 H Plt Count Lymph % (Auto) 11.0 L [place] % (Auto) Lymph # [place] # 1.1 H Baso # Seg Neutrophils % 82.5 H Seg Neuts % (Manual) Lymphocytes % (Manual) Monocytes % (Manual) Eosinophils % (Manual) Basophils % (Manual) Nucleated RBC % Seg Neutrophils # 15.7 H Seg Neutrophils # Man Lymphocytes # (Manual) Monocytes # (Manual) Eosinophils # (Manual) Basophils # (Manual) PT INR Fibrinogen dRVVT Confirm Interp Factor V Activity POC ABG pH POC ABG pCO2 POC ABG pO2 ABG pO2 ABG HCO3 ABG Base Excess ABG Hemoglobin Oxyhemoglobin Sodium Potassium Chloride 109.3 H Carbon Dioxide 18 L BUN 139 H Creatinine 4.1 H Glucose 144 H POC Glucose 146 H Lactic Acid Calcium 8.1 L Phosphorus Magnesium Direct Bilirubin AST ALT Alkaline Phosphatase Lactate Dehydrogenase Troponin T C-Reactive Protein Total Protein Albumin Prealbumin Triglycerides Cholesterol LDL Cholesterol Direct HDL Cholesterol Urine pH Urine WBC (Auto) Urine Creatinine Urine Total Protein Fluid Total Protein Vancomycin Trough Rheumatoid Factor Complement C4 Miscellaneous Test Crossmatch 09/16/16 09/16/16 09/16/16 12:04 12:10 13:55 WBC RBC Hgb Hct MCV MCH MCHC RDW Plt Count Lymph % (Auto) [place] % (Auto) Lymph # [place] # Baso # Seg Neutrophils % Seg Neuts % (Manual) Lymphocytes % (Manual) Monocytes % (Manual) Eosinophils % (Manual) Basophils % (Manual) Nucleated RBC % Seg Neutrophils # Seg Neutrophils # Man Lymphocytes # (Manual) Monocytes # (Manual) Eosinophils # (Manual) Basophils # (Manual) PT INR Fibrinogen dRVVT Confirm Interp Factor V Activity POC ABG pH POC ABG pCO2 32.9 L POC ABG pO2 ABG pO2 ABG HCO3 ABG Base Excess ABG Hemoglobin Oxyhemoglobin Sodium Potassium Chloride Carbon Dioxide BUN Creatinine Glucose POC Glucose 185 H Lactic Acid Calcium Phosphorus Magnesium Direct Bilirubin AST ALT Alkaline Phosphatase Lactate Dehydrogenase Troponin T C-Reactive Protein Total Protein Albumin Prealbumin Triglycerides Cholesterol LDL Cholesterol Direct HDL Cholesterol Urine pH Urine WBC (Auto) Urine Creatinine Urine Total Protein Fluid Total Protein Vancomycin Trough Rheumatoid Factor Complement C4 Miscellaneous Test Crossmatch See Detail 09/16/16 09/16/16 09/16/16 17:55 19:19 23:48 WBC RBC Hgb Hct MCV MCH MCHC RDW Plt Count Lymph % (Auto) [place] % (Auto) Lymph # [place] # Baso # Seg Neutrophils % Seg Neuts % (Manual) Lymphocytes % (Manual) Monocytes % (Manual) Eosinophils % (Manual) Basophils % (Manual) Nucleated RBC % Seg Neutrophils # Seg Neutrophils # Man Lymphocytes # (Manual) Monocytes # (Manual) Eosinophils # (Manual) Basophils # (Manual) PT INR Fibrinogen dRVVT Confirm Interp Factor V Activity POC ABG pH POC ABG pCO2 POC ABG pO2 ABG pO2 ABG HCO3 ABG Base Excess ABG Hemoglobin Oxyhemoglobin Sodium Potassium Chloride Carbon Dioxide BUN Creatinine Glucose POC Glucose 222 H 107 H Lactic Acid Calcium Phosphorus Magnesium Direct Bilirubin AST ALT Alkaline Phosphatase Lactate Dehydrogenase Troponin T C-Reactive Protein Total Protein Albumin Prealbumin Triglycerides Cholesterol LDL Cholesterol Direct HDL Cholesterol Urine pH Urine WBC (Auto) Urine Creatinine 47.4 H Urine Total Protein 16 H Fluid Total Protein Vancomycin Trough Rheumatoid Factor Complement C4 Miscellaneous Test Crossmatch 09/17/16 09/17/16 09/17/16 03:45 03:45 04:55 WBC 19.6 H RBC 3.41 L Hgb 8.5 L Hct 26.7 L MCV 78 L MCH 25 L MCHC RDW 19.9 H Plt Count Lymph % (Auto) 9.3 L [place] % (Auto) Lymph # [place] # 1.2 H Baso # Seg Neutrophils % 83.9 H Seg Neuts % (Manual) Lymphocytes % (Manual) Monocytes % (Manual) Eosinophils % (Manual) Basophils % (Manual) Nucleated RBC % Seg Neutrophils # 16.4 H Seg Neutrophils # Man Lymphocytes # (Manual) Monocytes # (Manual) Eosinophils # (Manual) Basophils # (Manual) PT INR Fibrinogen dRVVT Confirm Interp Factor V Activity POC ABG pH POC ABG pCO2 POC ABG pO2 ABG pO2 ABG HCO3 ABG Base Excess ABG Hemoglobin Oxyhemoglobin Sodium 146 H Potassium 5.1 H Chloride 110.9 H Carbon Dioxide 16 L BUN 146 H Creatinine 4.0 H Glucose 108 H POC Glucose 133 H Lactic Acid Calcium Phosphorus Magnesium 3.00 H Direct Bilirubin AST ALT Alkaline Phosphatase Lactate Dehydrogenase Troponin T C-Reactive Protein Total Protein Albumin Prealbumin Triglycerides Cholesterol LDL Cholesterol Direct HDL Cholesterol Urine pH Urine WBC (Auto) Urine Creatinine Urine Total Protein Fluid Total Protein Vancomycin Trough Rheumatoid Factor Complement C4 Miscellaneous Test Crossmatch 09/17/16 09/17/16 09/17/16 11:15 17:33 23:47 WBC RBC Hgb Hct MCV MCH MCHC RDW Plt Count Lymph % (Auto) Glynn % (Auto) Lymph # [place]nn # Baso # Seg Neutrophils % Seg Neuts % (Manual) Lymphocytes % (Manual) Monocytes % (Manual) Eosinophils % (Manual) Basophils % (Manual) Nucleated RBC % Seg Neutrophils # Seg Neutrophils # Man Lymphocytes # (Manual) Monocytes # (Manual) Eosinophils # (Manual) Basophils # (Manual) PT INR Fibrinogen dRVVT Confirm Interp Factor V Activity POC ABG pH POC ABG pCO2 POC ABG pO2 ABG pO2 ABG HCO3 ABG Base Excess ABG Hemoglobin Oxyhemoglobin Sodium Potassium Chloride Carbon Dioxide BUN Creatinine Glucose POC Glucose 176 H 246 H 148 H Lactic Acid Calcium Phosphorus Magnesium Direct Bilirubin AST ALT Alkaline Phosphatase Lactate Dehydrogenase Troponin T C-Reactive Protein Total Protein Albumin Prealbumin Triglycerides Cholesterol LDL Cholesterol Direct HDL Cholesterol Urine pH Urine WBC (Auto) Urine Creatinine Urine Total Protein Fluid Total Protein Vancomycin Trough Rheumatoid Factor Complement C4 Miscellaneous Test Crossmatch 09/18/16 09/18/16 09/18/16 05:33 08:31 08:31 WBC 18.0 H RBC 3.17 L Hgb 9.0 L Hct 25.7 L MCV MCH MCHC 35 H RDW 20.4 H Plt Count Lymph % (Auto) [place]nn % (Auto) Lymph # [place] # Baso # Seg Neutrophils % Seg Neuts % (Manual) Lymphocytes % (Manual) Monocytes % (Manual) Eosinophils % (Manual) Basophils % (Manual) Nucleated RBC % Seg Neutrophils # Seg Neutrophils # Man Lymphocytes # (Manual) Monocytes # (Manual) Eosinophils # (Manual) Basophils # (Manual) PT INR Fibrinogen dRVVT Confirm Interp Factor V Activity POC ABG pH POC ABG pCO2 POC ABG pO2 ABG pO2 ABG HCO3 ABG Base Excess ABG Hemoglobin Oxyhemoglobin Sodium Potassium Chloride Carbon Dioxide 15 L BUN 124 H Creatinine 3.8 H Glucose POC Glucose 120 H Lactic Acid Calcium 8.1 L Phosphorus Magnesium Direct Bilirubin AST ALT Alkaline Phosphatase Lactate Dehydrogenase Troponin T C-Reactive Protein Total Protein Albumin Prealbumin Triglycerides Cholesterol LDL Cholesterol Direct HDL Cholesterol Urine pH Urine WBC (Auto) Urine Creatinine Urine Total Protein Fluid Total Protein Vancomycin Trough Rheumatoid Factor Complement C4 Miscellaneous Test Crossmatch 09/18/16 09/18/16 09/18/16 12:03 15:34 17:50 WBC RBC Hgb Hct MCV MCH MCHC RDW Plt Count Lymph % (Auto) [place]nn % (Auto) Lymph # [place] # Baso # Seg Neutrophils % Seg Neuts % (Manual) Lymphocytes % (Manual) Monocytes % (Manual) Eosinophils % (Manual) Basophils % (Manual) Nucleated RBC % Seg Neutrophils # Seg Neutrophils # Man Lymphocytes # (Manual) Monocytes # (Manual) Eosinophils # (Manual) Basophils # (Manual) PT INR Fibrinogen dRVVT Confirm Interp Factor V Activity POC ABG pH POC ABG pCO2 25.7 L POC ABG pO2 66 L ABG pO2 ABG HCO3 ABG Base Excess ABG Hemoglobin Oxyhemoglobin Sodium Potassium Chloride Carbon Dioxide BUN Creatinine Glucose POC Glucose 156 H 220 H Lactic Acid Calcium Phosphorus Magnesium Direct Bilirubin AST ALT Alkaline Phosphatase Lactate Dehydrogenase Troponin T C-Reactive Protein Total Protein Albumin Prealbumin Triglycerides Cholesterol LDL Cholesterol Direct HDL Cholesterol Urine pH Urine WBC (Auto) Urine Creatinine Urine Total Protein Fluid Total Protein Vancomycin Trough Rheumatoid Factor Complement C4 Miscellaneous Test Crossmatch 09/19/16 09/19/16 09/19/16 06:21 09:50 09:50 WBC 17.1 H RBC 3.49 L Hgb 9.0 L Hct 28.1 L MCV MCH 26 L MCHC RDW 20.8 H Plt Count Lymph % (Auto) 11.5 L [place]nn % (Auto) 7.5 H Lymph # [place]nn # 1.3 H Baso # Seg Neutrophils % 79.8 H Seg Neuts % (Manual) Lymphocytes % (Manual) Monocytes % (Manual) Eosinophils % (Manual) Basophils % (Manual) Nucleated RBC % Seg Neutrophils # 13.7 H Seg Neutrophils # Man Lymphocytes # (Manual) Monocytes # (Manual) Eosinophils # (Manual) Basophils # (Manual) PT INR Fibrinogen dRVVT Confirm Interp Factor V Activity POC ABG pH POC ABG pCO2 POC ABG pO2 ABG pO2 ABG HCO3 ABG Base Excess ABG Hemoglobin Oxyhemoglobin Sodium Potassium Chloride 108.6 H Carbon Dioxide 15 L BUN 125 H Creatinine 4.1 H Glucose 124 H POC Glucose 119 H Lactic Acid Calcium Phosphorus Magnesium Direct Bilirubin AST ALT Alkaline Phosphatase Lactate Dehydrogenase Troponin T C-Reactive Protein Total Protein Albumin Prealbumin Triglycerides Cholesterol LDL Cholesterol Direct HDL Cholesterol Urine pH Urine WBC (Auto) Urine Creatinine Urine Total Protein Fluid Total Protein Vancomycin Trough Rheumatoid Factor Complement C4 Miscellaneous Test Crossmatch 09/19/16 09/19/16 09/19/16 11:25 17:53 23:36 WBC RBC Hgb Hct MCV MCH MCHC RDW Plt Count Lymph % (Auto) [place]nn % (Auto) Lymph # [place] # Baso # Seg Neutrophils % Seg Neuts % (Manual) Lymphocytes % (Manual) Monocytes % (Manual) Eosinophils % (Manual) Basophils % (Manual) Nucleated RBC % Seg Neutrophils # Seg Neutrophils # Man Lymphocytes # (Manual) Monocytes # (Manual) Eosinophils # (Manual) Basophils # (Manual) PT INR Fibrinogen dRVVT Confirm Interp Factor V Activity POC ABG pH POC ABG pCO2 POC ABG pO2 ABG pO2 ABG HCO3 ABG Base Excess ABG Hemoglobin Oxyhemoglobin Sodium Potassium Chloride Carbon Dioxide BUN Creatinine Glucose POC Glucose 160 H 245 H 121 H Lactic Acid Calcium Phosphorus Magnesium Direct Bilirubin AST ALT Alkaline Phosphatase Lactate Dehydrogenase Troponin T C-Reactive Protein Total Protein Albumin Prealbumin Triglycerides Cholesterol LDL Cholesterol Direct HDL Cholesterol Urine pH Urine WBC (Auto) Urine Creatinine Urine Total Protein Fluid Total Protein Vancomycin Trough Rheumatoid Factor Complement C4 Miscellaneous Test Crossmatch 09/20/16 09/20/16 09/20/16 04:10 04:10 04:10 WBC 17.0 H RBC 3.21 L Hgb 8.2 L Hct 25.5 L MCV MCH 26 L MCHC RDW 20.9 H Plt Count Lymph % (Auto) [place]nn % (Auto) Lymph # [place] # Baso # Seg Neutrophils % Seg Neuts % (Manual) Lymphocytes % (Manual) Monocytes % (Manual) Eosinophils % (Manual) Basophils % (Manual) Nucleated RBC % Seg Neutrophils # Seg Neutrophils # Man Lymphocytes # (Manual) Monocytes # (Manual) Eosinophils # (Manual) Basophils # (Manual) PT INR Fibrinogen dRVVT Confirm Interp Factor V Activity POC ABG pH POC ABG pCO2 POC ABG pO2 ABG pO2 ABG HCO3 ABG Base Excess ABG Hemoglobin Oxyhemoglobin Sodium Potassium Chloride 111.0 H Carbon Dioxide 16 L BUN 129 H Creatinine 3.7 H Glucose 115 H POC Glucose Lactic Acid Calcium 8.2 L Phosphorus Magnesium Direct Bilirubin AST ALT Alkaline Phosphatase Lactate Dehydrogenase Troponin T C-Reactive Protein Total Protein Albumin Prealbumin Triglycerides 243 H Cholesterol LDL Cholesterol Direct HDL Cholesterol Urine pH Urine WBC (Auto) Urine Creatinine Urine Total Protein Fluid Total Protein Vancomycin Trough Rheumatoid Factor Complement C4 Miscellaneous Test Crossmatch 09/20/16 09/20/16 09/20/16 05:40 11:52 16:50 WBC RBC Hgb Hct MCV MCH MCHC RDW Plt Count Lymph % (Auto) [place]nn % (Auto) Lymph # [place] # Baso # Seg Neutrophils % Seg Neuts % (Manual) Lymphocytes % (Manual) Monocytes % (Manual) Eosinophils % (Manual) Basophils % (Manual) Nucleated RBC % Seg Neutrophils # Seg Neutrophils # Man Lymphocytes # (Manual) Monocytes # (Manual) Eosinophils # (Manual) Basophils # (Manual) PT INR Fibrinogen dRVVT Confirm Interp Factor V Activity POC ABG pH POC ABG pCO2 POC ABG pO2 ABG pO2 ABG HCO3 ABG Base Excess ABG Hemoglobin Oxyhemoglobin Sodium Potassium Chloride Carbon Dioxide BUN Creatinine Glucose POC Glucose 131 H 183 H 236 H Lactic Acid Calcium Phosphorus Magnesium Direct Bilirubin AST ALT Alkaline Phosphatase Lactate Dehydrogenase Troponin T C-Reactive Protein Total Protein Albumin Prealbumin Triglycerides Cholesterol LDL Cholesterol Direct HDL Cholesterol Urine pH Urine WBC (Auto) Urine Creatinine Urine Total Protein Fluid Total Protein Vancomycin Trough Rheumatoid Factor Complement C4 Miscellaneous Test Crossmatch 09/20/16 09/21/16 09/21/16 23:51 03:30 04:44 WBC RBC Hgb Hct MCV MCH MCHC RDW Plt Count Lymph % (Auto) [place]nn % (Auto) Lymph # [place] # Baso # Seg Neutrophils % Seg Neuts % (Manual) Lymphocytes % (Manual) Monocytes % (Manual) Eosinophils % (Manual) Basophils % (Manual) Nucleated RBC % Seg Neutrophils # Seg Neutrophils # Man Lymphocytes # (Manual) Monocytes # (Manual) Eosinophils # (Manual) Basophils # (Manual) PT INR Fibrinogen dRVVT Confirm Interp Factor V Activity POC ABG pH POC ABG pCO2 POC ABG pO2 ABG pO2 ABG HCO3 ABG Base Excess ABG Hemoglobin Oxyhemoglobin Sodium Potassium Chloride Carbon Dioxide BUN Creatinine Glucose POC Glucose 114 H 141 H Lactic Acid Calcium Phosphorus Magnesium 2.70 H Direct Bilirubin AST ALT Alkaline Phosphatase Lactate Dehydrogenase Troponin T C-Reactive Protein Total Protein Albumin Prealbumin Triglycerides Cholesterol LDL Cholesterol Direct HDL Cholesterol Urine pH Urine WBC (Auto) Urine Creatinine Urine Total Protein Fluid Total Protein Vancomycin Trough Rheumatoid Factor Complement C4 Miscellaneous Test Crossmatch 09/21/16 09/21/16 09/21/16 07:45 07:45 10:01 WBC 13.8 H RBC 2.94 L Hgb 7.5 L Hct 23.5 L MCV MCH 26 L MCHC RDW 21.2 H Plt Count Lymph % (Auto) 6.9 L [place]nn % (Auto) 9.4 H Lymph # 0.9 L [place]nn # 1.3 H Baso # Seg Neutrophils % 83.2 H Seg Neuts % (Manual) Lymphocytes % (Manual) Monocytes % (Manual) Eosinophils % (Manual) Basophils % (Manual) Nucleated RBC % Seg Neutrophils # 11.5 H Seg Neutrophils # Man Lymphocytes # (Manual) Monocytes # (Manual) Eosinophils # (Manual) Basophils # (Manual) PT INR Fibrinogen dRVVT Confirm Interp Factor V Activity POC ABG pH 7.308 L POC ABG pCO2 31.9 L POC ABG pO2 148 H ABG pO2 ABG HCO3 ABG Base Excess ABG Hemoglobin Oxyhemoglobin Sodium 147 H Potassium Chloride 114.2 H Carbon Dioxide 15 L BUN 120 H Creatinine 3.9 H Glucose 156 H POC Glucose Lactic Acid Calcium 8.2 L Phosphorus Magnesium Direct Bilirubin AST ALT Alkaline Phosphatase Lactate Dehydrogenase Troponin T C-Reactive Protein Total Protein Albumin Prealbumin Triglycerides Cholesterol LDL Cholesterol Direct HDL Cholesterol Urine pH Urine WBC (Auto) Urine Creatinine Urine Total Protein Fluid Total Protein Vancomycin Trough Rheumatoid Factor Complement C4 Miscellaneous Test Crossmatch 09/21/16 09/21/16 09/21/16 12:00 12:03 13:00 WBC RBC Hgb Hct MCV MCH MCHC RDW Plt Count Lymph % (Auto) [place]nn % (Auto) Lymph # [place] # Baso # Seg Neutrophils % Seg Neuts % (Manual) Lymphocytes % (Manual) Monocytes % (Manual) Eosinophils % (Manual) Basophils % (Manual) Nucleated RBC % Seg Neutrophils # Seg Neutrophils # Man Lymphocytes # (Manual) Monocytes # (Manual) Eosinophils # (Manual) Basophils # (Manual) PT INR Fibrinogen dRVVT Confirm Interp Factor V Activity POC ABG pH POC ABG pCO2 POC ABG pO2 ABG pO2 ABG HCO3 ABG Base Excess ABG Hemoglobin Oxyhemoglobin Sodium Potassium Chloride Carbon Dioxide BUN Creatinine Glucose POC Glucose 163 H Lactic Acid Calcium Phosphorus Magnesium Direct Bilirubin AST ALT Alkaline Phosphatase Lactate Dehydrogenase Troponin T C-Reactive Protein Total Protein Albumin Prealbumin Triglycerides Cholesterol LDL Cholesterol Direct HDL Cholesterol Urine pH Urine WBC (Auto) Urine Creatinine 54.8 H Urine Total Protein Fluid Total Protein Vancomycin Trough 2.3 L Rheumatoid Factor Complement C4 Miscellaneous Test Crossmatch 09/21/16 09/21/16 09/22/16 16:51 23:17 06:27 WBC RBC Hgb Hct MCV MCH MCHC RDW Plt Count Lymph % (Auto) [place]nn % (Auto) Lymph # [place] # Baso # Seg Neutrophils % Seg Neuts % (Manual) Lymphocytes % (Manual) Monocytes % (Manual) Eosinophils % (Manual) Basophils % (Manual) Nucleated RBC % Seg Neutrophils # Seg Neutrophils # Man Lymphocytes # (Manual) Monocytes # (Manual) Eosinophils # (Manual) Basophils # (Manual) PT INR Fibrinogen dRVVT Confirm Interp Factor V Activity POC ABG pH POC ABG pCO2 POC ABG pO2 ABG pO2 ABG HCO3 ABG Base Excess ABG Hemoglobin Oxyhemoglobin Sodium Potassium Chloride Carbon Dioxide BUN Creatinine Glucose POC Glucose 206 H 114 H 115 H Lactic Acid Calcium Phosphorus Magnesium Direct Bilirubin AST ALT Alkaline Phosphatase Lactate Dehydrogenase Troponin T C-Reactive Protein Total Protein Albumin Prealbumin Triglycerides Cholesterol LDL Cholesterol Direct HDL Cholesterol Urine pH Urine WBC (Auto) Urine Creatinine Urine Total Protein Fluid Total Protein Vancomycin Trough Rheumatoid Factor Complement C4 Miscellaneous Test Crossmatch 09/22/16 09/22/16 09/22/16 07:50 07:50 12:00 WBC 17.8 H RBC 3.04 L Hgb 8.0 L Hct 24.7 L MCV MCH 26 L MCHC RDW 21.6 H Plt Count Lymph % (Auto) [place]nn % (Auto) Lymph # [place] # Baso # Seg Neutrophils % Seg Neuts % (Manual) Lymphocytes % (Manual) Monocytes % (Manual) Eosinophils % (Manual) Basophils % (Manual) Nucleated RBC % Seg Neutrophils # Seg Neutrophils # Man Lymphocytes # (Manual) Monocytes # (Manual) Eosinophils # (Manual) Basophils # (Manual) PT INR Fibrinogen dRVVT Confirm Interp Factor V Activity POC ABG pH POC ABG pCO2 POC ABG pO2 ABG pO2 ABG HCO3 ABG Base Excess ABG Hemoglobin Oxyhemoglobin Sodium 150 H Potassium Chloride 118.2 H Carbon Dioxide 14 L BUN 111 H Creatinine 3.7 H Glucose 157 H POC Glucose 183 H Lactic Acid Calcium Phosphorus Magnesium Direct Bilirubin AST ALT Alkaline Phosphatase Lactate Dehydrogenase Troponin T C-Reactive Protein Total Protein Albumin Prealbumin Triglycerides Cholesterol LDL Cholesterol Direct HDL Cholesterol Urine pH Urine WBC (Auto) Urine Creatinine Urine Total Protein Fluid Total Protein Vancomycin Trough Rheumatoid Factor Complement C4 Miscellaneous Test Crossmatch 09/22/16 09/22/16 09/23/16 17:29 23:10 05:00 WBC 19.2 H RBC 3.13 L Hgb 8.0 L Hct 25.2 L MCV MCH 26 L MCHC RDW 22.1 H Plt Count Lymph % (Auto) [place]nn % (Auto) Lymph # [place] # Baso # Seg Neutrophils % Seg Neuts % (Manual) 92.0 H Lymphocytes % (Manual) 3.0 L Monocytes % (Manual) Eosinophils % (Manual) Basophils % (Manual) Nucleated RBC % Seg Neutrophils # Seg Neutrophils # Man 17.7 H Lymphocytes # (Manual) 0.6 L Monocytes # (Manual) Eosinophils # (Manual) Basophils # (Manual) PT INR Fibrinogen dRVVT Confirm Interp Factor V Activity POC ABG pH POC ABG pCO2 POC ABG pO2 ABG pO2 ABG HCO3 ABG Base Excess ABG Hemoglobin Oxyhemoglobin Sodium Potassium Chloride Carbon Dioxide BUN Creatinine Glucose POC Glucose 197 H 169 H Lactic Acid Calcium Phosphorus Magnesium Direct Bilirubin AST ALT Alkaline Phosphatase Lactate Dehydrogenase Troponin T C-Reactive Protein Total Protein Albumin Prealbumin Triglycerides Cholesterol LDL Cholesterol Direct HDL Cholesterol Urine pH Urine WBC (Auto) Urine Creatinine Urine Total Protein Fluid Total Protein Vancomycin Trough Rheumatoid Factor Complement C4 Miscellaneous Test Crossmatch 09/23/16 09/23/16 09/23/16 05:00 05:00 05:10 WBC RBC Hgb Hct MCV MCH MCHC RDW Plt Count Lymph % (Auto) [place]nn % (Auto) Lymph # [place] # Baso # Seg Neutrophils % Seg Neuts % (Manual) Lymphocytes % (Manual) Monocytes % (Manual) Eosinophils % (Manual) Basophils % (Manual) Nucleated RBC % Seg Neutrophils # Seg Neutrophils # Man Lymphocytes # (Manual) Monocytes # (Manual) Eosinophils # (Manual) Basophils # (Manual) PT INR Fibrinogen dRVVT Confirm Interp Factor V Activity POC ABG pH POC ABG pCO2 POC ABG pO2 ABG pO2 ABG HCO3 ABG Base Excess ABG Hemoglobin Oxyhemoglobin Sodium 147 H Potassium 3.2 L Chloride 115.7 H Carbon Dioxide 13 L BUN 111 H Creatinine 3.8 H Glucose 194 H POC Glucose 188 H Lactic Acid Calcium 7.3 L D Phosphorus Magnesium Direct Bilirubin AST ALT Alkaline Phosphatase Lactate Dehydrogenase Troponin T C-Reactive Protein 3.20 H Total Protein Albumin Prealbumin Triglycerides Cholesterol LDL Cholesterol Direct HDL Cholesterol Urine pH Urine WBC (Auto) Urine Creatinine Urine Total Protein Fluid Total Protein Vancomycin Trough Rheumatoid Factor Complement C4 Miscellaneous Test Crossmatch 09/23/16 09/23/16 09/23/16 11:37 12:29 18:01 WBC RBC Hgb Hct MCV MCH MCHC RDW Plt Count Lymph % (Auto) [place]nn % (Auto) Lymph # [place] # Baso # Seg Neutrophils % Seg Neuts % (Manual) Lymphocytes % (Manual) Monocytes % (Manual) Eosinophils % (Manual) Basophils % (Manual) Nucleated RBC % Seg Neutrophils # Seg Neutrophils # Man Lymphocytes # (Manual) Monocytes # (Manual) Eosinophils # (Manual) Basophils # (Manual) PT INR Fibrinogen dRVVT Confirm Interp Factor V Activity POC ABG pH POC ABG pCO2 18.9 L POC ABG pO2 143 H ABG pO2 ABG HCO3 ABG Base Excess ABG Hemoglobin Oxyhemoglobin Sodium Potassium Chloride Carbon Dioxide BUN Creatinine Glucose POC Glucose 153 H 108 H Lactic Acid Calcium Phosphorus Magnesium Direct Bilirubin AST ALT Alkaline Phosphatase Lactate Dehydrogenase Troponin T C-Reactive Protein Total Protein Albumin Prealbumin Triglycerides Cholesterol LDL Cholesterol Direct HDL Cholesterol Urine pH Urine WBC (Auto) Urine Creatinine Urine Total Protein Fluid Total Protein Vancomycin Trough Rheumatoid Factor Complement C4 Miscellaneous Test Crossmatch 09/23/16 09/23/16 09/24/16 21:19 23:43 05:16 WBC RBC Hgb Hct MCV MCH MCHC RDW Plt Count Lymph % (Auto) [place]nn % (Auto) Lymph # [place] # Baso # Seg Neutrophils % Seg Neuts % (Manual) Lymphocytes % (Manual) Monocytes % (Manual) Eosinophils % (Manual) Basophils % (Manual) Nucleated RBC % Seg Neutrophils # Seg Neutrophils # Man Lymphocytes # (Manual) Monocytes # (Manual) Eosinophils # (Manual) Basophils # (Manual) PT INR Fibrinogen dRVVT Confirm Interp Factor V Activity POC ABG pH POC ABG pCO2 17.3 L POC ABG pO2 112 H ABG pO2 ABG HCO3 ABG Base Excess ABG Hemoglobin Oxyhemoglobin Sodium Potassium Chloride Carbon Dioxide BUN Creatinine Glucose POC Glucose 143 H 164 H Lactic Acid Calcium Phosphorus Magnesium Direct Bilirubin AST ALT Alkaline Phosphatase Lactate Dehydrogenase Troponin T C-Reactive Protein Total Protein Albumin Prealbumin Triglycerides Cholesterol LDL Cholesterol Direct HDL Cholesterol Urine pH Urine WBC (Auto) Urine Creatinine Urine Total Protein Fluid Total Protein Vancomycin Trough Rheumatoid Factor Complement C4 Miscellaneous Test Crossmatch 09/24/16 09/24/16 09/24/16 05:21 11:58 17:06 WBC RBC Hgb Hct MCV MCH MCHC RDW Plt Count Lymph % (Auto) [place]nn % (Auto) Lymph # [place] # Baso # Seg Neutrophils % Seg Neuts % (Manual) Lymphocytes % (Manual) Monocytes % (Manual) Eosinophils % (Manual) Basophils % (Manual) Nucleated RBC % Seg Neutrophils # Seg Neutrophils # Man Lymphocytes # (Manual) Monocytes # (Manual) Eosinophils # (Manual) Basophils # (Manual) PT INR Fibrinogen dRVVT Confirm Interp Factor V Activity POC ABG pH POC ABG pCO2 POC ABG pO2 ABG pO2 ABG HCO3 ABG Base Excess ABG Hemoglobin Oxyhemoglobin Sodium Potassium Chloride Carbon Dioxide 10 L BUN 103 H Creatinine 4.3 H Glucose 163 H POC Glucose 173 H 167 H Lactic Acid Calcium 6.5 L Phosphorus Magnesium Direct Bilirubin AST ALT Alkaline Phosphatase Lactate Dehydrogenase Troponin T C-Reactive Protein Total Protein Albumin Prealbumin Triglycerides Cholesterol LDL Cholesterol Direct HDL Cholesterol Urine pH Urine WBC (Auto) Urine Creatinine Urine Total Protein Fluid Total Protein Vancomycin Trough Rheumatoid Factor Complement C4 Miscellaneous Test Crossmatch 09/24/16 09/24/16 09/24/16 20:15 21:02 23:48 WBC RBC Hgb Hct MCV MCH MCHC RDW Plt Count Lymph % (Auto) [place]nn % (Auto) Lymph # [place] # Baso # Seg Neutrophils % Seg Neuts % (Manual) Lymphocytes % (Manual) Monocytes % (Manual) Eosinophils % (Manual) Basophils % (Manual) Nucleated RBC % Seg Neutrophils # Seg Neutrophils # Man Lymphocytes # (Manual) Monocytes # (Manual) Eosinophils # (Manual) Basophils # (Manual) PT INR Fibrinogen dRVVT Confirm Interp Factor V Activity POC ABG pH 7.288 L POC ABG pCO2 30.2 L 21.5 L POC ABG pO2 32 L 39 L ABG pO2 ABG HCO3 ABG Base Excess ABG Hemoglobin Oxyhemoglobin Sodium Potassium Chloride Carbon Dioxide BUN Creatinine Glucose POC Glucose 109 H Lactic Acid Calcium Phosphorus Magnesium Direct Bilirubin AST ALT Alkaline Phosphatase Lactate Dehydrogenase Troponin T C-Reactive Protein Total Protein Albumin Prealbumin Triglycerides Cholesterol LDL Cholesterol Direct HDL Cholesterol Urine pH Urine WBC (Auto) Urine Creatinine Urine Total Protein Fluid Total Protein Vancomycin Trough Rheumatoid Factor Complement C4 Miscellaneous Test Crossmatch 09/25/16 09/25/16 09/25/16 04:20 04:20 04:20 WBC RBC 2.58 L Hgb 7.0 L Hct 21.0 L MCV MCH 27 L MCHC RDW 23.8 H Plt Count Lymph % (Auto) [place]nn % (Auto) Lymph # [place] # Baso # Seg Neutrophils % Seg Neuts % (Manual) Lymphocytes % (Manual) 12.0 L Monocytes % (Manual) Eosinophils % (Manual) 7.0 H Basophils % (Manual) 2.0 H Nucleated RBC % Seg Neutrophils # Seg Neutrophils # Man Lymphocytes # (Manual) 0.9 L Monocytes # (Manual) Eosinophils # (Manual) 0.5 H Basophils # (Manual) PT INR Fibrinogen dRVVT Confirm Interp Factor V Activity POC ABG pH POC ABG pCO2 POC ABG pO2 ABG pO2 ABG HCO3 ABG Base Excess ABG Hemoglobin Oxyhemoglobin Sodium Potassium Chloride Carbon Dioxide 15 L BUN 72 H Creatinine 3.8 H Glucose POC Glucose Lactic Acid Calcium 6.0 L Phosphorus 4.60 H Magnesium 1.60 L Direct Bilirubin AST ALT Alkaline Phosphatase Lactate Dehydrogenase Troponin T C-Reactive Protein Total Protein Albumin Prealbumin Triglycerides Cholesterol LDL Cholesterol Direct HDL Cholesterol Urine pH Urine WBC (Auto) Urine Creatinine Urine Total Protein Fluid Total Protein Vancomycin Trough Rheumatoid Factor Complement C4 Miscellaneous Test Crossmatch 09/25/16 09/25/16 09/25/16 04:57 08:02 10:30 WBC RBC Hgb Hct MCV MCH MCHC RDW Plt Count Lymph % (Auto) [place]nn % (Auto) Lymph # [place] # Baso # Seg Neutrophils % Seg Neuts % (Manual) Lymphocytes % (Manual) Monocytes % (Manual) Eosinophils % (Manual) Basophils % (Manual) Nucleated RBC % Seg Neutrophils # Seg Neutrophils # Man Lymphocytes # (Manual) Monocytes # (Manual) Eosinophils # (Manual) Basophils # (Manual) PT INR Fibrinogen dRVVT Confirm Interp Factor V Activity POC ABG pH POC ABG pCO2 24.7 L POC ABG pO2 152 H ABG pO2 ABG HCO3 ABG Base Excess ABG Hemoglobin Oxyhemoglobin Sodium Potassium Chloride Carbon Dioxide BUN Creatinine Glucose POC Glucose 113 H Lactic Acid Calcium Phosphorus Magnesium Direct Bilirubin AST ALT Alkaline Phosphatase Lactate Dehydrogenase Troponin T C-Reactive Protein Total Protein Albumin Prealbumin Triglycerides Cholesterol LDL Cholesterol Direct HDL Cholesterol Urine pH Urine WBC (Auto) Urine Creatinine Urine Total Protein Fluid Total Protein Vancomycin Trough Rheumatoid Factor Complement C4 Miscellaneous Test Crossmatch See Detail 09/25/16 09/25/16 09/25/16 12:05 17:44 23:47 WBC RBC Hgb Hct MCV MCH MCHC RDW Plt Count Lymph % (Auto) [place]nn % (Auto) Lymph # [place] # Baso # Seg Neutrophils % Seg Neuts % (Manual) Lymphocytes % (Manual) Monocytes % (Manual) Eosinophils % (Manual) Basophils % (Manual) Nucleated RBC % Seg Neutrophils # Seg Neutrophils # Man Lymphocytes # (Manual) Monocytes # (Manual) Eosinophils # (Manual) Basophils # (Manual) PT INR Fibrinogen dRVVT Confirm Interp Factor V Activity POC ABG pH POC ABG pCO2 POC ABG pO2 ABG pO2 ABG HCO3 ABG Base Excess ABG Hemoglobin Oxyhemoglobin Sodium Potassium Chloride Carbon Dioxide BUN Creatinine Glucose POC Glucose 117 H 119 H 150 H Lactic Acid Calcium Phosphorus Magnesium Direct Bilirubin AST ALT Alkaline Phosphatase Lactate Dehydrogenase Troponin T C-Reactive Protein Total Protein Albumin Prealbumin Triglycerides Cholesterol LDL Cholesterol Direct HDL Cholesterol Urine pH Urine WBC (Auto) Urine Creatinine Urine Total Protein Fluid Total Protein Vancomycin Trough Rheumatoid Factor Complement C4 Miscellaneous Test Crossmatch 09/26/16 09/26/16 09/26/16 04:25 04:25 04:25 WBC RBC 2.65 L Hgb 7.4 L Hct 21.6 L MCV MCH MCHC RDW 22.5 H Plt Count Lymph % (Auto) [place]nn % (Auto) Lymph # [place] # Baso # Seg Neutrophils % Seg Neuts % (Manual) Lymphocytes % (Manual) 6.0 L Monocytes % (Manual) Eosinophils % (Manual) 11.0 H Basophils % (Manual) Nucleated RBC % Seg Neutrophils # Seg Neutrophils # Man Lymphocytes # (Manual) 0.4 L Monocytes # (Manual) Eosinophils # (Manual) 0.6 H Basophils # (Manual) PT INR Fibrinogen dRVVT Confirm Interp Factor V Activity POC ABG pH POC ABG pCO2 POC ABG pO2 ABG pO2 ABG HCO3 ABG Base Excess ABG Hemoglobin Oxyhemoglobin Sodium Potassium Chloride 97.0 L Carbon Dioxide 19 L BUN 43 H Creatinine 2.6 H Glucose 130 H POC Glucose Lactic Acid 4.40 H* Calcium 6.7 L Phosphorus Magnesium Direct Bilirubin AST ALT Alkaline Phosphatase Lactate Dehydrogenase Troponin T C-Reactive Protein Total Protein Albumin Prealbumin Triglycerides Cholesterol LDL Cholesterol Direct HDL Cholesterol Urine pH Urine WBC (Auto) Urine Creatinine Urine Total Protein Fluid Total Protein Vancomycin Trough Rheumatoid Factor Complement C4 Miscellaneous Test Crossmatch 09/26/16 09/26/16 09/26/16 05:20 11:44 12:12 WBC RBC Hgb Hct MCV MCH MCHC RDW Plt Count Lymph % (Auto) [place]nn % (Auto) Lymph # [place]nn # Baso # Seg Neutrophils % Seg Neuts % (Manual) Lymphocytes % (Manual) Monocytes % (Manual) Eosinophils % (Manual) Basophils % (Manual) Nucleated RBC % Seg Neutrophils # Seg Neutrophils # Man Lymphocytes # (Manual) Monocytes # (Manual) Eosinophils # (Manual) Basophils # (Manual) PT INR Fibrinogen dRVVT Confirm Interp Factor V Activity POC ABG pH POC ABG pCO2 27.0 L POC ABG pO2 69 L ABG pO2 ABG HCO3 ABG Base Excess ABG Hemoglobin Oxyhemoglobin Sodium Potassium Chloride Carbon Dioxide BUN Creatinine Glucose POC Glucose 121 H 128 H Lactic Acid Calcium Phosphorus Magnesium Direct Bilirubin AST ALT Alkaline Phosphatase Lactate Dehydrogenase Troponin T C-Reactive Protein Total Protein Albumin Prealbumin Triglycerides Cholesterol LDL Cholesterol Direct HDL Cholesterol Urine pH Urine WBC (Auto) Urine Creatinine Urine Total Protein Fluid Total Protein Vancomycin Trough Rheumatoid Factor Complement C4 Miscellaneous Test Crossmatch 09/26/16 09/26/16 09/27/16 18:31 23:40 08:20 WBC RBC Hgb Hct MCV MCH MCHC RDW Plt Count Lymph % (Auto) Glynn % (Auto) Lymph # [place]nn # Baso # Seg Neutrophils % Seg Neuts % (Manual) Lymphocytes % (Manual) Monocytes % (Manual) Eosinophils % (Manual) Basophils % (Manual) Nucleated RBC % Seg Neutrophils # Seg Neutrophils # Man Lymphocytes # (Manual) Monocytes # (Manual) Eosinophils # (Manual) Basophils # (Manual) PT INR Fibrinogen dRVVT Confirm Interp Factor V Activity POC ABG pH POC ABG pCO2 POC ABG pO2 ABG pO2 ABG HCO3 ABG Base Excess ABG Hemoglobin Oxyhemoglobin Sodium Potassium Chloride Carbon Dioxide BUN Creatinine Glucose POC Glucose 120 H 133 H Lactic Acid 4.10 H* Calcium Phosphorus Magnesium Direct Bilirubin AST ALT Alkaline Phosphatase Lactate Dehydrogenase Troponin T C-Reactive Protein Total Protein Albumin Prealbumin Triglycerides Cholesterol LDL Cholesterol Direct HDL Cholesterol Urine pH Urine WBC (Auto) Urine Creatinine Urine Total Protein Fluid Total Protein Vancomycin Trough Rheumatoid Factor Complement C4 Miscellaneous Test Crossmatch 09/27/16 09/27/16 09/27/16 11:23 15:00 18:15 WBC RBC Hgb Hct MCV MCH MCHC RDW Plt Count Lymph % (Auto) Glynn % (Auto) Lymph # [place]nn # Baso # Seg Neutrophils % Seg Neuts % (Manual) Lymphocytes % (Manual) Monocytes % (Manual) Eosinophils % (Manual) Basophils % (Manual) Nucleated RBC % Seg Neutrophils # Seg Neutrophils # Man Lymphocytes # (Manual) Monocytes # (Manual) Eosinophils # (Manual) Basophils # (Manual) PT INR Fibrinogen dRVVT Confirm Interp Factor V Activity POC ABG pH 7.459 H POC ABG pCO2 27.1 L POC ABG pO2 140 H ABG pO2 ABG HCO3 ABG Base Excess ABG Hemoglobin Oxyhemoglobin Sodium Potassium Chloride Carbon Dioxide BUN Creatinine Glucose POC Glucose 114 H 127 H Lactic Acid Calcium Phosphorus Magnesium Direct Bilirubin AST ALT Alkaline Phosphatase Lactate Dehydrogenase Troponin T C-Reactive Protein Total Protein Albumin Prealbumin Triglycerides Cholesterol LDL Cholesterol Direct HDL Cholesterol Urine pH Urine WBC (Auto) Urine Creatinine Urine Total Protein Fluid Total Protein Vancomycin Trough Rheumatoid Factor Complement C4 Miscellaneous Test Crossmatch 09/27/16 09/27/16 09/28/16 Unknown Unknown 03:45 WBC RBC 2.49 L Hgb 6.8 L Hct 20.7 L MCV MCH 27 L MCHC RDW 22.1 H Plt Count Lymph % (Auto) [place]nn % (Auto) Lymph # [place] # Baso # Seg Neutrophils % Seg Neuts % (Manual) 32.0 L Lymphocytes % (Manual) 12.0 L Monocytes % (Manual) 11.0 H Eosinophils % (Manual) 10.0 H Basophils % (Manual) Nucleated RBC % Seg Neutrophils # Seg Neutrophils # Man Lymphocytes # (Manual) 1.0 L Monocytes # (Manual) 0.9 H Eosinophils # (Manual) 0.8 H Basophils # (Manual) PT INR Fibrinogen dRVVT Confirm Interp Factor V Activity POC ABG pH POC ABG pCO2 POC ABG pO2 ABG pO2 ABG HCO3 ABG Base Excess ABG Hemoglobin Oxyhemoglobin Sodium 135 L 135 L Potassium 3.5 L Chloride 93.6 L 94.4 L Carbon Dioxide 17 L 21 L BUN 45 H 28 H Creatinine 3.3 H 2.5 H Glucose 106 H POC Glucose Lactic Acid Calcium 7.3 L 7.1 L Phosphorus Magnesium Direct Bilirubin AST ALT Alkaline Phosphatase Lactate Dehydrogenase Troponin T C-Reactive Protein Total Protein Albumin Prealbumin Triglycerides Cholesterol LDL Cholesterol Direct HDL Cholesterol Urine pH Urine WBC (Auto) Urine Creatinine Urine Total Protein Fluid Total Protein Vancomycin Trough Rheumatoid Factor Complement C4 Miscellaneous Test Crossmatch 09/28/16 09/28/16 09/28/16 03:45 07:25 11:58 WBC 13.3 H RBC 3.01 L Hgb 8.4 L Hct 25.0 L MCV MCH MCHC RDW 20.5 H Plt Count 128 L Lymph % (Auto) [place]nn % (Auto) Lymph # [place]nn # Baso # Seg Neutrophils % Seg Neuts % (Manual) Lymphocytes % (Manual) 7.0 L Monocytes % (Manual) Eosinophils % (Manual) 6.0 H Basophils % (Manual) Nucleated RBC % Seg Neutrophils # Seg Neutrophils # Man Lymphocytes # (Manual) 0.9 L Monocytes # (Manual) Eosinophils # (Manual) 0.8 H Basophils # (Manual) PT INR Fibrinogen dRVVT Confirm Interp Factor V Activity POC ABG pH POC ABG pCO2 POC ABG pO2 ABG pO2 ABG HCO3 ABG Base Excess ABG Hemoglobin Oxyhemoglobin Sodium Potassium Chloride Carbon Dioxide BUN Creatinine Glucose POC Glucose 121 H Lactic Acid 4.50 H* Calcium Phosphorus Magnesium Direct Bilirubin AST ALT Alkaline Phosphatase Lactate Dehydrogenase Troponin T C-Reactive Protein Total Protein Albumin Prealbumin Triglycerides Cholesterol LDL Cholesterol Direct HDL Cholesterol Urine pH Urine WBC (Auto) Urine Creatinine Urine Total Protein Fluid Total Protein Vancomycin Trough Rheumatoid Factor Complement C4 Miscellaneous Test Crossmatch 09/29/16 09/29/16 09/29/16 06:45 06:45 06:45 WBC 14.9 H RBC 2.74 L Hgb 7.6 L Hct 23.2 L MCV MCH MCHC RDW 20.5 H Plt Count 81 L Lymph % (Auto) [place]nn % (Auto) Lymph # [place] # Baso # Seg Neutrophils % Seg Neuts % (Manual) 81.0 H Lymphocytes % (Manual) 4.0 L Monocytes % (Manual) Eosinophils % (Manual) Basophils % (Manual) Nucleated RBC % Seg Neutrophils # Seg Neutrophils # Man 12.1 H Lymphocytes # (Manual) 0.6 L Monocytes # (Manual) Eosinophils # (Manual) Basophils # (Manual) PT INR Fibrinogen dRVVT Confirm Interp Factor V Activity POC ABG pH POC ABG pCO2 POC ABG pO2 ABG pO2 ABG HCO3 ABG Base Excess ABG Hemoglobin Oxyhemoglobin Sodium 133 L Potassium 3.4 L Chloride 92.5 L Carbon Dioxide 21 L BUN 33 H Creatinine 3.0 H Glucose POC Glucose Lactic Acid Calcium 6.6 L Phosphorus Magnesium 1.40 L Direct Bilirubin 0.9 H AST ALT Alkaline Phosphatase Lactate Dehydrogenase Troponin T C-Reactive Protein Total Protein 4.3 L Albumin 1.3 L Prealbumin Triglycerides Cholesterol LDL Cholesterol Direct HDL Cholesterol Urine pH Urine WBC (Auto) Urine Creatinine Urine Total Protein Fluid Total Protein Vancomycin Trough Rheumatoid Factor Complement C4 Miscellaneous Test Crossmatch 09/29/16 09/29/16 09/30/16 17:52 20:12 00:07 WBC RBC Hgb Hct MCV MCH MCHC RDW Plt Count Lymph % (Auto) [place]nn % (Auto) Lymph # [place] # Baso # Seg Neutrophils % Seg Neuts % (Manual) Lymphocytes % (Manual) Monocytes % (Manual) Eosinophils % (Manual) Basophils % (Manual) Nucleated RBC % Seg Neutrophils # Seg Neutrophils # Man Lymphocytes # (Manual) Monocytes # (Manual) Eosinophils # (Manual) Basophils # (Manual) PT INR Fibrinogen dRVVT Confirm Interp Factor V Activity POC ABG pH POC ABG pCO2 POC ABG pO2 ABG pO2 ABG HCO3 ABG Base Excess ABG Hemoglobin Oxyhemoglobin Sodium Potassium Chloride Carbon Dioxide BUN Creatinine Glucose POC Glucose 50 L 51 L Lactic Acid Calcium Phosphorus Magnesium Direct Bilirubin AST ALT Alkaline Phosphatase Lactate Dehydrogenase Troponin T 0.204 H* C-Reactive Protein Total Protein Albumin Prealbumin Triglycerides Cholesterol 31 L LDL Cholesterol Direct 4 L HDL Cholesterol 3 L Urine pH Urine WBC (Auto) Urine Creatinine Urine Total Protein Fluid Total Protein Vancomycin Trough Rheumatoid Factor Complement C4 Miscellaneous Test Crossmatch 09/30/16 09/30/16 09/30/16 01:30 05:15 06:10 WBC RBC Hgb Hct MCV MCH MCHC RDW Plt Count Lymph % (Auto) [place]nn % (Auto) Lymph # [place] # Baso # Seg Neutrophils % Seg Neuts % (Manual) Lymphocytes % (Manual) Monocytes % (Manual) Eosinophils % (Manual) Basophils % (Manual) Nucleated RBC % Seg Neutrophils # Seg Neutrophils # Man Lymphocytes # (Manual) Monocytes # (Manual) Eosinophils # (Manual) Basophils # (Manual) PT INR Fibrinogen dRVVT Confirm Interp Factor V Activity POC ABG pH POC ABG pCO2 POC ABG pO2 ABG pO2 ABG HCO3 ABG Base Excess ABG Hemoglobin Oxyhemoglobin Sodium 133 L Potassium 3.2 L Chloride 93.2 L Carbon Dioxide 19 L BUN 36 H Creatinine 3.2 H Glucose 104 H POC Glucose 167 H 146 H Lactic Acid Calcium 6.4 L Phosphorus Magnesium 1.60 L Direct Bilirubin AST ALT Alkaline Phosphatase Lactate Dehydrogenase Troponin T C-Reactive Protein Total Protein Albumin Prealbumin Triglycerides Cholesterol LDL Cholesterol Direct HDL Cholesterol Urine pH Urine WBC (Auto) Urine Creatinine Urine Total Protein Fluid Total Protein Vancomycin Trough Rheumatoid Factor Complement C4 Miscellaneous Test Crossmatch 09/30/16 09/30/16 09/30/16 11:26 13:39 18:38 WBC RBC Hgb Hct MCV MCH MCHC RDW Plt Count Lymph % (Auto) [place]nn % (Auto) Lymph # [place] # Baso # Seg Neutrophils % Seg Neuts % (Manual) Lymphocytes % (Manual) Monocytes % (Manual) Eosinophils % (Manual) Basophils % (Manual) Nucleated RBC % Seg Neutrophils # Seg Neutrophils # Man Lymphocytes # (Manual) Monocytes # (Manual) Eosinophils # (Manual) Basophils # (Manual) PT INR Fibrinogen dRVVT Confirm Interp Factor V Activity POC ABG pH 7.479 H POC ABG pCO2 29.8 L POC ABG pO2 117 H ABG pO2 ABG HCO3 ABG Base Excess ABG Hemoglobin Oxyhemoglobin Sodium Potassium Chloride Carbon Dioxide BUN Creatinine Glucose POC Glucose 140 H 122 H Lactic Acid Calcium Phosphorus Magnesium Direct Bilirubin AST ALT Alkaline Phosphatase Lactate Dehydrogenase Troponin T C-Reactive Protein Total Protein Albumin Prealbumin Triglycerides Cholesterol LDL Cholesterol Direct HDL Cholesterol Urine pH Urine WBC (Auto) Urine Creatinine Urine Total Protein Fluid Total Protein Vancomycin Trough Rheumatoid Factor Complement C4 Miscellaneous Test Crossmatch 10/01/16 10/01/16 10/01/16 06:00 06:00 12:37 WBC 12.6 H RBC 2.75 L Hgb 7.3 L Hct 23.3 L MCV MCH 27 L MCHC RDW 20.6 H Plt Count 72 L Lymph % (Auto) [place]nn % (Auto) Lymph # [place] # Baso # Seg Neutrophils % Seg Neuts % (Manual) 31.0 L Lymphocytes % (Manual) 8.0 L Monocytes % (Manual) Eosinophils % (Manual) Basophils % (Manual) Nucleated RBC % 3.0 H Seg Neutrophils # Seg Neutrophils # Man Lymphocytes # (Manual) 1.0 L Monocytes # (Manual) Eosinophils # (Manual) Basophils # (Manual) PT INR Fibrinogen dRVVT Confirm Interp Factor V Activity POC ABG pH POC ABG pCO2 POC ABG pO2 ABG pO2 ABG HCO3 ABG Base Excess ABG Hemoglobin Oxyhemoglobin Sodium 127 L Potassium Chloride 86.8 L Carbon Dioxide 20 L BUN 42 H Creatinine 3.5 H Glucose POC Glucose 65 L Lactic Acid Calcium 7.0 L Phosphorus Magnesium Direct Bilirubin AST ALT Alkaline Phosphatase Lactate Dehydrogenase Troponin T C-Reactive Protein Total Protein Albumin Prealbumin Triglycerides Cholesterol LDL Cholesterol Direct HDL Cholesterol Urine pH Urine WBC (Auto) Urine Creatinine Urine Total Protein Fluid Total Protein Vancomycin Trough Rheumatoid Factor Complement C4 Miscellaneous Test Crossmatch 10/01/16 10/01/16 10/02/16 17:39 23:32 00:59 WBC RBC Hgb Hct MCV MCH MCHC RDW Plt Count Lymph % (Auto) [place]nn % (Auto) Lymph # [place] # Baso # Seg Neutrophils % Seg Neuts % (Manual) Lymphocytes % (Manual) Monocytes % (Manual) Eosinophils % (Manual) Basophils % (Manual) Nucleated RBC % Seg Neutrophils # Seg Neutrophils # Man Lymphocytes # (Manual) Monocytes # (Manual) Eosinophils # (Manual) Basophils # (Manual) PT INR Fibrinogen dRVVT Confirm Interp Factor V Activity POC ABG pH POC ABG pCO2 POC ABG pO2 ABG pO2 ABG HCO3 ABG Base Excess ABG Hemoglobin Oxyhemoglobin Sodium Potassium Chloride Carbon Dioxide BUN Creatinine Glucose POC Glucose 107 H 52 L 145 H Lactic Acid Calcium Phosphorus Magnesium Direct Bilirubin AST ALT Alkaline Phosphatase Lactate Dehydrogenase Troponin T C-Reactive Protein Total Protein Albumin Prealbumin Triglycerides Cholesterol LDL Cholesterol Direct HDL Cholesterol Urine pH Urine WBC (Auto) Urine Creatinine Urine Total Protein Fluid Total Protein Vancomycin Trough Rheumatoid Factor Complement C4 Miscellaneous Test Crossmatch 10/02/16 10/02/16 10/02/16 10:30 10:50 10:50 WBC 14.7 H RBC 2.76 L Hgb 7.4 L Hct 23.6 L MCV MCH 27 L MCHC RDW 20.2 H Plt Count 79 L Lymph % (Auto) [place]nn % (Auto) Lymph # [place] # Baso # Seg Neutrophils % Seg Neuts % (Manual) 86.0 H Lymphocytes % (Manual) 6.0 L Monocytes % (Manual) Eosinophils % (Manual) Basophils % (Manual) Nucleated RBC % Seg Neutrophils # Seg Neutrophils # Man 12.6 H Lymphocytes # (Manual) 0.9 L Monocytes # (Manual) Eosinophils # (Manual) Basophils # (Manual) PT INR Fibrinogen dRVVT Confirm Interp Factor V Activity POC ABG pH 7.486 H POC ABG pCO2 30.1 L POC ABG pO2 108 H ABG pO2 ABG HCO3 ABG Base Excess ABG Hemoglobin Oxyhemoglobin Sodium 131 L Potassium 3.4 L Chloride 89.9 L Carbon Dioxide BUN 26 H Creatinine 2.6 H Glucose POC Glucose Lactic Acid Calcium 7.0 L Phosphorus Magnesium Direct Bilirubin AST ALT Alkaline Phosphatase Lactate Dehydrogenase Troponin T C-Reactive Protein Total Protein Albumin Prealbumin Triglycerides Cholesterol LDL Cholesterol Direct HDL Cholesterol Urine pH Urine WBC (Auto) Urine Creatinine Urine Total Protein Fluid Total Protein Vancomycin Trough Rheumatoid Factor Complement C4 Miscellaneous Test Crossmatch 10/02/16 10/03/16 10/03/16 23:45 00:45 05:10 WBC 12.9 H RBC 2.77 L Hgb 7.6 L Hct 23.7 L MCV MCH 27 L MCHC RDW 19.7 H Plt Count 89 L Lymph % (Auto) [place]nn % (Auto) Lymph # [place] # Baso # Seg Neutrophils % Seg Neuts % (Manual) Lymphocytes % (Manual) 8.0 L Monocytes % (Manual) Eosinophils % (Manual) Basophils % (Manual) Nucleated RBC % Seg Neutrophils # 11.9 H Seg Neutrophils # Man Lymphocytes # (Manual) 1.0 L Monocytes # (Manual) Eosinophils # (Manual) Basophils # (Manual) PT INR Fibrinogen dRVVT Confirm Interp Factor V Activity POC ABG pH POC ABG pCO2 POC ABG pO2 ABG pO2 ABG HCO3 ABG Base Excess ABG Hemoglobin Oxyhemoglobin Sodium Potassium Chloride Carbon Dioxide BUN Creatinine Glucose POC Glucose 55 L 199 H Lactic Acid Calcium Phosphorus Magnesium Direct Bilirubin AST ALT Alkaline Phosphatase Lactate Dehydrogenase Troponin T C-Reactive Protein Total Protein Albumin Prealbumin Triglycerides Cholesterol LDL Cholesterol Direct HDL Cholesterol Urine pH Urine WBC (Auto) Urine Creatinine Urine Total Protein Fluid Total Protein Vancomycin Trough Rheumatoid Factor Complement C4 Miscellaneous Test Crossmatch 10/03/16 10/03/16 10/03/16 05:10 12:14 13:18 WBC RBC Hgb Hct MCV MCH MCHC RDW Plt Count Lymph % (Auto) [place]nn % (Auto) Lymph # [place] # Baso # Seg Neutrophils % Seg Neuts % (Manual) Lymphocytes % (Manual) Monocytes % (Manual) Eosinophils % (Manual) Basophils % (Manual) Nucleated RBC % Seg Neutrophils # Seg Neutrophils # Man Lymphocytes # (Manual) Monocytes # (Manual) Eosinophils # (Manual) Basophils # (Manual) PT INR Fibrinogen dRVVT Confirm Interp Factor V Activity POC ABG pH POC ABG pCO2 POC ABG pO2 ABG pO2 ABG HCO3 ABG Base Excess ABG Hemoglobin Oxyhemoglobin Sodium 129 L Potassium 3.3 L Chloride 88.8 L Carbon Dioxide 20 L BUN 29 H Creatinine 2.8 H Glucose POC Glucose 68 L 127 H Lactic Acid Calcium 7.2 L Phosphorus Magnesium Direct Bilirubin AST ALT Alkaline Phosphatase Lactate Dehydrogenase Troponin T C-Reactive Protein Total Protein Albumin Prealbumin Triglycerides Cholesterol LDL Cholesterol Direct HDL Cholesterol Urine pH Urine WBC (Auto) Urine Creatinine Urine Total Protein Fluid Total Protein Vancomycin Trough Rheumatoid Factor Complement C4 Miscellaneous Test Crossmatch 10/03/16 10/03/16 10/03/16 14:42 18:21 19:09 WBC RBC Hgb Hct MCV MCH MCHC RDW Plt Count Lymph % (Auto) [place]nn % (Auto) Lymph # [place]nn # Baso # Seg Neutrophils % Seg Neuts % (Manual) Lymphocytes % (Manual) Monocytes % (Manual) Eosinophils % (Manual) Basophils % (Manual) Nucleated RBC % Seg Neutrophils # Seg Neutrophils # Man Lymphocytes # (Manual) Monocytes # (Manual) Eosinophils # (Manual) Basophils # (Manual) PT INR Fibrinogen dRVVT Confirm Interp Factor V Activity POC ABG pH 7.499 H POC ABG pCO2 28.4 L POC ABG pO2 44 L ABG pO2 ABG HCO3 ABG Base Excess ABG Hemoglobin Oxyhemoglobin Sodium Potassium Chloride Carbon Dioxide BUN Creatinine Glucose POC Glucose 64 L 205 H Lactic Acid Calcium Phosphorus Magnesium Direct Bilirubin AST ALT Alkaline Phosphatase Lactate Dehydrogenase Troponin T C-Reactive Protein Total Protein Albumin Prealbumin Triglycerides Cholesterol LDL Cholesterol Direct HDL Cholesterol Urine pH Urine WBC (Auto) Urine Creatinine Urine Total Protein Fluid Total Protein Vancomycin Trough Rheumatoid Factor Complement C4 Miscellaneous Test Crossmatch 10/03/16 10/04/16 10/04/16 23:33 04:18 06:30 WBC RBC 2.54 L Hgb 7.1 L Hct 21.7 L MCV MCH MCHC RDW 19.5 H Plt Count 76 L Lymph % (Auto) [place]nn % (Auto) Lymph # [place] # Baso # Seg Neutrophils % Seg Neuts % (Manual) 88.0 H Lymphocytes % (Manual) 6.0 L Monocytes % (Manual) Eosinophils % (Manual) Basophils % (Manual) Nucleated RBC % Seg Neutrophils # Seg Neutrophils # Man 8.8 H Lymphocytes # (Manual) 0.6 L Monocytes # (Manual) Eosinophils # (Manual) Basophils # (Manual) PT INR Fibrinogen dRVVT Confirm Interp Factor V Activity POC ABG pH 7.461 H POC ABG pCO2 33.6 L POC ABG pO2 211 H ABG pO2 ABG HCO3 ABG Base Excess ABG Hemoglobin Oxyhemoglobin Sodium Potassium Chloride Carbon Dioxide BUN Creatinine Glucose POC Glucose 136 H Lactic Acid Calcium Phosphorus Magnesium Direct Bilirubin AST ALT Alkaline Phosphatase Lactate Dehydrogenase Troponin T C-Reactive Protein Total Protein Albumin Prealbumin Triglycerides Cholesterol LDL Cholesterol Direct HDL Cholesterol Urine pH Urine WBC (Auto) Urine Creatinine Urine Total Protein Fluid Total Protein Vancomycin Trough Rheumatoid Factor Complement C4 Miscellaneous Test Crossmatch 10/04/16 10/04/16 10/04/16 06:30 11:45 17:54 WBC RBC Hgb Hct MCV MCH MCHC RDW Plt Count Lymph % (Auto) [place]nn % (Auto) Lymph # [place]nn # Baso # Seg Neutrophils % Seg Neuts % (Manual) Lymphocytes % (Manual) Monocytes % (Manual) Eosinophils % (Manual) Basophils % (Manual) Nucleated RBC % Seg Neutrophils # Seg Neutrophils # Man Lymphocytes # (Manual) Monocytes # (Manual) Eosinophils # (Manual) Basophils # (Manual) PT INR Fibrinogen dRVVT Confirm Interp Factor V Activity POC ABG pH POC ABG pCO2 POC ABG pO2 ABG pO2 ABG HCO3 ABG Base Excess ABG Hemoglobin Oxyhemoglobin Sodium 128 L Potassium Chloride 87.4 L Carbon Dioxide 20 L BUN 34 H Creatinine 2.9 H Glucose 127 H POC Glucose 158 H 160 H Lactic Acid Calcium 7.4 L Phosphorus Magnesium Direct Bilirubin AST ALT Alkaline Phosphatase Lactate Dehydrogenase Troponin T C-Reactive Protein Total Protein Albumin Prealbumin Triglycerides Cholesterol LDL Cholesterol Direct HDL Cholesterol Urine pH Urine WBC (Auto) Urine Creatinine Urine Total Protein Fluid Total Protein Vancomycin Trough Rheumatoid Factor Complement C4 Miscellaneous Test Crossmatch 10/04/16 10/05/16 10/05/16 23:25 04:30 05:00 WBC RBC 2.64 L Hgb 7.5 L Hct 22.6 L MCV MCH MCHC RDW 19.3 H Plt Count 80 L Lymph % (Auto) [place]nn % (Auto) Lymph # [place] # Baso # Seg Neutrophils % Seg Neuts % (Manual) Lymphocytes % (Manual) 12.0 L Monocytes % (Manual) Eosinophils % (Manual) Basophils % (Manual) Nucleated RBC % Seg Neutrophils # Seg Neutrophils # Man Lymphocytes # (Manual) Monocytes # (Manual) Eosinophils # (Manual) Basophils # (Manual) PT INR Fibrinogen dRVVT Confirm Interp Factor V Activity POC ABG pH 7.475 H POC ABG pCO2 33.3 L POC ABG pO2 140 H ABG pO2 ABG HCO3 ABG Base Excess ABG Hemoglobin Oxyhemoglobin Sodium Potassium Chloride Carbon Dioxide BUN Creatinine Glucose POC Glucose 141 H Lactic Acid Calcium Phosphorus Magnesium Direct Bilirubin AST ALT Alkaline Phosphatase Lactate Dehydrogenase Troponin T C-Reactive Protein Total Protein Albumin Prealbumin Triglycerides Cholesterol LDL Cholesterol Direct HDL Cholesterol Urine pH Urine WBC (Auto) Urine Creatinine Urine Total Protein Fluid Total Protein Vancomycin Trough Rheumatoid Factor Complement C4 Miscellaneous Test Crossmatch 10/05/16 10/05/16 10/05/16 05:00 05:09 12:58 WBC RBC Hgb Hct MCV MCH MCHC RDW Plt Count Lymph % (Auto) [place]nn % (Auto) Lymph # [place] # Baso # Seg Neutrophils % Seg Neuts % (Manual) Lymphocytes % (Manual) Monocytes % (Manual) Eosinophils % (Manual) Basophils % (Manual) Nucleated RBC % Seg Neutrophils # Seg Neutrophils # Man Lymphocytes # (Manual) Monocytes # (Manual) Eosinophils # (Manual) Basophils # (Manual) PT INR Fibrinogen dRVVT Confirm Interp Factor V Activity POC ABG pH POC ABG pCO2 POC ABG pO2 ABG pO2 ABG HCO3 ABG Base Excess ABG Hemoglobin Oxyhemoglobin Sodium 131 L Potassium Chloride 94.0 L Carbon Dioxide 20 L BUN 22 H Creatinine 2.0 H Glucose 123 H POC Glucose 166 H 179 H Lactic Acid Calcium 7.7 L Phosphorus 2.20 L D Magnesium Direct Bilirubin AST ALT Alkaline Phosphatase Lactate Dehydrogenase Troponin T C-Reactive Protein Total Protein Albumin Prealbumin Triglycerides Cholesterol LDL Cholesterol Direct HDL Cholesterol Urine pH Urine WBC (Auto) Urine Creatinine Urine Total Protein Fluid Total Protein Vancomycin Trough Rheumatoid Factor Complement C4 Miscellaneous Test Crossmatch 10/05/16 10/05/16 10/05/16 15:50 18:53 23:12 WBC RBC Hgb Hct MCV MCH MCHC RDW Plt Count Lymph % (Auto) [place]nn % (Auto) Lymph # [place] # Baso # Seg Neutrophils % Seg Neuts % (Manual) Lymphocytes % (Manual) Monocytes % (Manual) Eosinophils % (Manual) Basophils % (Manual) Nucleated RBC % Seg Neutrophils # Seg Neutrophils # Man Lymphocytes # (Manual) Monocytes # (Manual) Eosinophils # (Manual) Basophils # (Manual) PT INR Fibrinogen dRVVT Confirm Interp Factor V Activity POC ABG pH POC ABG pCO2 POC ABG pO2 ABG pO2 ABG HCO3 ABG Base Excess ABG Hemoglobin Oxyhemoglobin Sodium Potassium Chloride Carbon Dioxide BUN Creatinine Glucose POC Glucose 150 H 164 H Lactic Acid Calcium Phosphorus Magnesium Direct Bilirubin AST ALT Alkaline Phosphatase Lactate Dehydrogenase Troponin T C-Reactive Protein Total Protein Albumin Prealbumin Triglycerides Cholesterol LDL Cholesterol Direct HDL Cholesterol Urine pH Urine WBC (Auto) Urine Creatinine Urine Total Protein Fluid Total Protein Vancomycin Trough Rheumatoid Factor Complement C4 Miscellaneous Test Crossmatch See Detail 10/06/16 10/06/16 10/06/16 03:50 03:50 04:53 WBC RBC 3.00 L Hgb 8.6 L Hct 25.8 L MCV MCH MCHC RDW 17.9 H Plt Count 65 L Lymph % (Auto) [place]nn % (Auto) Lymph # [place] # Baso # Seg Neutrophils % Seg Neuts % (Manual) 30.0 L Lymphocytes % (Manual) 5.0 L Monocytes % (Manual) Eosinophils % (Manual) Basophils % (Manual) Nucleated RBC % Seg Neutrophils # Seg Neutrophils # Man Lymphocytes # (Manual) 0.4 L Monocytes # (Manual) Eosinophils # (Manual) Basophils # (Manual) PT INR Fibrinogen dRVVT Confirm Interp Factor V Activity POC ABG pH 7.310 L POC ABG pCO2 49.0 H POC ABG pO2 ABG pO2 ABG HCO3 ABG Base Excess ABG Hemoglobin Oxyhemoglobin Sodium 133 L Potassium Chloride 95.9 L Carbon Dioxide BUN 26 H Creatinine 2.0 H Glucose 116 H POC Glucose Lactic Acid Calcium 7.8 L Phosphorus Magnesium Direct Bilirubin AST ALT Alkaline Phosphatase Lactate Dehydrogenase Troponin T C-Reactive Protein Total Protein Albumin Prealbumin Triglycerides Cholesterol LDL Cholesterol Direct HDL Cholesterol Urine pH Urine WBC (Auto) Urine Creatinine Urine Total Protein Fluid Total Protein Vancomycin Trough Rheumatoid Factor Complement C4 Miscellaneous Test Crossmatch 10/06/16 10/06/16 10/06/16 05:23 11:52 18:34 WBC RBC Hgb Hct MCV MCH MCHC RDW Plt Count Lymph % (Auto) [place]nn % (Auto) Lymph # [place] # Baso # Seg Neutrophils % Seg Neuts % (Manual) Lymphocytes % (Manual) Monocytes % (Manual) Eosinophils % (Manual) Basophils % (Manual) Nucleated RBC % Seg Neutrophils # Seg Neutrophils # Man Lymphocytes # (Manual) Monocytes # (Manual) Eosinophils # (Manual) Basophils # (Manual) PT INR Fibrinogen dRVVT Confirm Interp Factor V Activity POC ABG pH POC ABG pCO2 POC ABG pO2 ABG pO2 ABG HCO3 ABG Base Excess ABG Hemoglobin Oxyhemoglobin Sodium Potassium Chloride Carbon Dioxide BUN Creatinine Glucose POC Glucose 126 H 116 H 129 H Lactic Acid Calcium Phosphorus Magnesium Direct Bilirubin AST ALT Alkaline Phosphatase Lactate Dehydrogenase Troponin T C-Reactive Protein Total Protein Albumin Prealbumin Triglycerides Cholesterol LDL Cholesterol Direct HDL Cholesterol Urine pH Urine WBC (Auto) Urine Creatinine Urine Total Protein Fluid Total Protein Vancomycin Trough Rheumatoid Factor Complement C4 Miscellaneous Test Crossmatch 10/07/16 10/07/16 10/07/16 03:45 05:00 10:00 WBC 17.0 H RBC 2.68 L Hgb 7.3 L Hct 25.3 L MCV MCH 27 L MCHC 29 L RDW 19.6 H Plt Count 74 L Lymph % (Auto) Glynn % (Auto) Lymph # [place]nn # Baso # Seg Neutrophils % Seg Neuts % (Manual) Lymphocytes % (Manual) 12.0 L Monocytes % (Manual) Eosinophils % (Manual) Basophils % (Manual) Nucleated RBC % 4.0 H Seg Neutrophils # Seg Neutrophils # Man 10.7 H Lymphocytes # (Manual) Monocytes # (Manual) Eosinophils # (Manual) Basophils # (Manual) PT INR Fibrinogen dRVVT Confirm Interp Factor V Activity POC ABG pH POC ABG pCO2 POC ABG pO2 ABG pO2 ABG HCO3 ABG Base Excess ABG Hemoglobin Oxyhemoglobin Sodium 130 L Potassium 3.2 L Chloride 93.9 L Carbon Dioxide 20 L BUN 44 H Creatinine 2.7 H Glucose 129 H POC Glucose Lactic Acid Calcium 7.4 L Phosphorus Magnesium Direct Bilirubin AST ALT 6 L Alkaline Phosphatase 195 H Lactate Dehydrogenase Troponin T C-Reactive Protein Total Protein 4.9 L Albumin 1.0 L Prealbumin Triglycerides Cholesterol LDL Cholesterol Direct HDL Cholesterol Urine pH Urine WBC (Auto) Urine Creatinine Urine Total Protein Fluid Total Protein Vancomycin Trough Rheumatoid Factor Complement C4 Miscellaneous Test Flexitest 1 H Crossmatch 10/07/16 10/07/16 10/07/16 10:00 11:24 18:10 WBC RBC Hgb Hct MCV MCH MCHC RDW Plt Count Lymph % (Auto) Glynn % (Auto) Lymph # [place]nn # Baso # Seg Neutrophils % Seg Neuts % (Manual) Lymphocytes % (Manual) Monocytes % (Manual) Eosinophils % (Manual) Basophils % (Manual) Nucleated RBC % Seg Neutrophils # Seg Neutrophils # Man Lymphocytes # (Manual) Monocytes # (Manual) Eosinophils # (Manual) Basophils # (Manual) PT INR Fibrinogen dRVVT Confirm Interp Factor V Activity POC ABG pH POC ABG pCO2 POC ABG pO2 ABG pO2 ABG HCO3 ABG Base Excess ABG Hemoglobin Oxyhemoglobin Sodium Potassium Chloride Carbon Dioxide BUN Creatinine Glucose POC Glucose 116 H 130 H Lactic Acid Calcium Phosphorus Magnesium Direct Bilirubin AST ALT Alkaline Phosphatase Lactate Dehydrogenase Troponin T C-Reactive Protein 19.40 H Total Protein Albumin Prealbumin Triglycerides Cholesterol LDL Cholesterol Direct HDL Cholesterol Urine pH Urine WBC (Auto) Urine Creatinine Urine Total Protein Fluid Total Protein Vancomycin Trough Rheumatoid Factor Complement C4 Miscellaneous Test Crossmatch 10/07/16 10/08/16 10/08/16 18:30 00:00 04:00 WBC RBC Hgb Hct MCV MCH MCHC RDW Plt Count Lymph % (Auto) [place]nn % (Auto) Lymph # [place]nn # Baso # Seg Neutrophils % Seg Neuts % (Manual) Lymphocytes % (Manual) Monocytes % (Manual) Eosinophils % (Manual) Basophils % (Manual) Nucleated RBC % Seg Neutrophils # Seg Neutrophils # Man Lymphocytes # (Manual) Monocytes # (Manual) Eosinophils # (Manual) Basophils # (Manual) PT INR Fibrinogen dRVVT Confirm Interp Factor V Activity POC ABG pH POC ABG pCO2 POC ABG pO2 ABG pO2 ABG HCO3 ABG Base Excess ABG Hemoglobin Oxyhemoglobin Sodium 132 L Potassium 3.3 L Chloride 93.6 L Carbon Dioxide 17 L BUN 59 H Creatinine 2.7 H Glucose 121 H POC Glucose 122 H Lactic Acid Calcium 7.6 L Phosphorus Magnesium Direct Bilirubin AST ALT Alkaline Phosphatase Lactate Dehydrogenase Troponin T C-Reactive Protein Total Protein Albumin Prealbumin Triglycerides Cholesterol LDL Cholesterol Direct HDL Cholesterol Urine pH Urine WBC (Auto) > 182.0 H Urine Creatinine Urine Total Protein Fluid Total Protein Vancomycin Trough Rheumatoid Factor Complement C4 Miscellaneous Test Crossmatch 10/08/16 10/08/16 10/08/16 04:30 05:30 11:51 WBC RBC 5.15 H Hgb 14.4 H D Hct 44.5 H D MCV MCH MCHC RDW 19.5 H Plt Count 56 L Lymph % (Auto) [place]nn % (Auto) Lymph # [place] # Baso # Seg Neutrophils % Seg Neuts % (Manual) 24.0 L Lymphocytes % (Manual) 8.0 L Monocytes % (Manual) Eosinophils % (Manual) Basophils % (Manual) Nucleated RBC % 9.0 H Seg Neutrophils # Seg Neutrophils # Man Lymphocytes # (Manual) 0.7 L Monocytes # (Manual) Eosinophils # (Manual) Basophils # (Manual) PT INR Fibrinogen dRVVT Confirm Interp Factor V Activity POC ABG pH POC ABG pCO2 POC ABG pO2 ABG pO2 ABG HCO3 ABG Base Excess ABG Hemoglobin Oxyhemoglobin Sodium Potassium Chloride Carbon Dioxide BUN Creatinine Glucose POC Glucose 125 H 150 H Lactic Acid Calcium Phosphorus Magnesium Direct Bilirubin AST ALT Alkaline Phosphatase Lactate Dehydrogenase Troponin T C-Reactive Protein Total Protein Albumin Prealbumin Triglycerides Cholesterol LDL Cholesterol Direct HDL Cholesterol Urine pH Urine WBC (Auto) Urine Creatinine Urine Total Protein Fluid Total Protein Vancomycin Trough Rheumatoid Factor Complement C4 Miscellaneous Test Crossmatch 10/08/16 10/08/16 10/08/16 12:49 17:07 19:30 WBC RBC Hgb 7.1 L D Hct 22.4 L D MCV MCH MCHC RDW Plt Count Lymph % (Auto) [place]nn % (Auto) Lymph # [place] # Baso # Seg Neutrophils % Seg Neuts % (Manual) Lymphocytes % (Manual) Monocytes % (Manual) Eosinophils % (Manual) Basophils % (Manual) Nucleated RBC % Seg Neutrophils # Seg Neutrophils # Man Lymphocytes # (Manual) Monocytes # (Manual) Eosinophils # (Manual) Basophils # (Manual) PT INR Fibrinogen dRVVT Confirm Interp Factor V Activity POC ABG pH POC ABG pCO2 28.2 L POC ABG pO2 111 H ABG pO2 ABG HCO3 ABG Base Excess ABG Hemoglobin Oxyhemoglobin Sodium Potassium Chloride Carbon Dioxide BUN Creatinine Glucose POC Glucose 145 H Lactic Acid Calcium Phosphorus Magnesium Direct Bilirubin AST ALT Alkaline Phosphatase Lactate Dehydrogenase Troponin T C-Reactive Protein Total Protein Albumin Prealbumin Triglycerides Cholesterol LDL Cholesterol Direct HDL Cholesterol Urine pH Urine WBC (Auto) Urine Creatinine Urine Total Protein Fluid Total Protein Vancomycin Trough Rheumatoid Factor Complement C4 Miscellaneous Test Crossmatch 10/08/16 10/09/16 10/09/16 19:30 03:45 03:45 WBC 12.6 H RBC 2.36 L Hgb 6.7 L Hct 21.1 L MCV MCH MCHC RDW 19.5 H Plt Count 75 L Lymph % (Auto) [place]nn % (Auto) Lymph # [place] # Baso # Seg Neutrophils % Seg Neuts % (Manual) Lymphocytes % (Manual) Monocytes % (Manual) 10.0 H Eosinophils % (Manual) Basophils % (Manual) Nucleated RBC % 3.0 H Seg Neutrophils # Seg Neutrophils # Man Lymphocytes # (Manual) Monocytes # (Manual) 1.3 H Eosinophils # (Manual) Basophils # (Manual) PT 18.0 H INR 1.41 H Fibrinogen dRVVT Confirm Interp Factor V Activity POC ABG pH POC ABG pCO2 POC ABG pO2 ABG pO2 ABG HCO3 ABG Base Excess ABG Hemoglobin Oxyhemoglobin Sodium 135 L Potassium Chloride Carbon Dioxide 17 L BUN 81 H Creatinine 3.2 H Glucose 109 H POC Glucose Lactic Acid Calcium 7.4 L Phosphorus 4.60 H D Magnesium Direct Bilirubin AST ALT Alkaline Phosphatase Lactate Dehydrogenase Troponin T C-Reactive Protein Total Protein Albumin Prealbumin Triglycerides Cholesterol LDL Cholesterol Direct HDL Cholesterol Urine pH Urine WBC (Auto) Urine Creatinine Urine Total Protein Fluid Total Protein Vancomycin Trough Rheumatoid Factor Complement C4 Miscellaneous Test Crossmatch 10/09/16 10/09/16 10/09/16 03:45 05:14 07:20 WBC RBC Hgb Hct MCV MCH MCHC RDW Plt Count Lymph % (Auto) [place]nn % (Auto) Lymph # [place] # Baso # Seg Neutrophils % Seg Neuts % (Manual) Lymphocytes % (Manual) Monocytes % (Manual) Eosinophils % (Manual) Basophils % (Manual) Nucleated RBC % Seg Neutrophils # Seg Neutrophils # Man Lymphocytes # (Manual) Monocytes # (Manual) Eosinophils # (Manual) Basophils # (Manual) PT 19.0 H INR 1.51 H Fibrinogen dRVVT Confirm Interp Factor V Activity POC ABG pH POC ABG pCO2 POC ABG pO2 ABG pO2 ABG HCO3 ABG Base Excess ABG Hemoglobin Oxyhemoglobin Sodium Potassium Chloride Carbon Dioxide BUN Creatinine Glucose POC Glucose 151 H Lactic Acid Calcium Phosphorus Magnesium Direct Bilirubin AST ALT Alkaline Phosphatase Lactate Dehydrogenase Troponin T C-Reactive Protein Total Protein Albumin Prealbumin Triglycerides Cholesterol LDL Cholesterol Direct HDL Cholesterol Urine pH Urine WBC (Auto) Urine Creatinine Urine Total Protein Fluid Total Protein Vancomycin Trough Rheumatoid Factor Complement C4 Miscellaneous Test Crossmatch See Detail 10/09/16 10/09/16 10/09/16 11:46 16:20 16:43 WBC RBC Hgb 7.2 L Hct 22.2 L MCV MCH MCHC RDW Plt Count Lymph % (Auto) [place]nn % (Auto) Lymph # [place] # Baso # Seg Neutrophils % Seg Neuts % (Manual) Lymphocytes % (Manual) Monocytes % (Manual) Eosinophils % (Manual) Basophils % (Manual) Nucleated RBC % Seg Neutrophils # Seg Neutrophils # Man Lymphocytes # (Manual) Monocytes # (Manual) Eosinophils # (Manual) Basophils # (Manual) PT INR Fibrinogen dRVVT Confirm Interp Factor V Activity POC ABG pH POC ABG pCO2 POC ABG pO2 ABG pO2 ABG HCO3 ABG Base Excess ABG Hemoglobin Oxyhemoglobin Sodium Potassium Chloride Carbon Dioxide BUN Creatinine Glucose POC Glucose 133 H 141 H Lactic Acid Calcium Phosphorus Magnesium Direct Bilirubin AST ALT Alkaline Phosphatase Lactate Dehydrogenase Troponin T C-Reactive Protein Total Protein Albumin Prealbumin Triglycerides Cholesterol LDL Cholesterol Direct HDL Cholesterol Urine pH Urine WBC (Auto) Urine Creatinine Urine Total Protein Fluid Total Protein Vancomycin Trough Rheumatoid Factor Complement C4 Miscellaneous Test Crossmatch 10/10/16 10/10/16 10/10/16 05:00 05:00 11:19 WBC 18.5 H RBC 2.19 L Hgb 6.4 L Hct 19.6 L* MCV MCH MCHC RDW 19.3 H Plt Count 93 L Lymph % (Auto) [place]nn % (Auto) Lymph # [place] # Baso # Seg Neutrophils % Seg Neuts % (Manual) Lymphocytes % (Manual) 10.0 L Monocytes % (Manual) Eosinophils % (Manual) Basophils % (Manual) Nucleated RBC % 4.0 H Seg Neutrophils # Seg Neutrophils # Man 11.3 H Lymphocytes # (Manual) Monocytes # (Manual) Eosinophils # (Manual) Basophils # (Manual) PT INR Fibrinogen dRVVT Confirm Interp Factor V Activity POC ABG pH POC ABG pCO2 POC ABG pO2 ABG pO2 ABG HCO3 ABG Base Excess ABG Hemoglobin Oxyhemoglobin Sodium Potassium 5.7 H D Chloride Carbon Dioxide 16 L BUN 94 H Creatinine 3.1 H Glucose 131 H POC Glucose 153 H Lactic Acid Calcium 8.2 L Phosphorus 5.10 H Magnesium 2.40 H Direct Bilirubin 0.3 H AST ALT < 5 L Alkaline Phosphatase 319 H Lactate Dehydrogenase Troponin T C-Reactive Protein Total Protein 5.1 L Albumin 1.0 L Prealbumin Triglycerides Cholesterol LDL Cholesterol Direct HDL Cholesterol Urine pH Urine WBC (Auto) Urine Creatinine Urine Total Protein Fluid Total Protein Vancomycin Trough Rheumatoid Factor Complement C4 Miscellaneous Test Crossmatch 10/10/16 10/10/16 10/11/16 17:50 23:30 04:15 WBC RBC Hgb Hct MCV MCH MCHC RDW Plt Count Lymph % (Auto) [place]nn % (Auto) Lymph # [place] # Baso # Seg Neutrophils % Seg Neuts % (Manual) Lymphocytes % (Manual) Monocytes % (Manual) Eosinophils % (Manual) Basophils % (Manual) Nucleated RBC % Seg Neutrophils # Seg Neutrophils # Man Lymphocytes # (Manual) Monocytes # (Manual) Eosinophils # (Manual) Basophils # (Manual) PT INR Fibrinogen dRVVT Confirm Interp Factor V Activity POC ABG pH POC ABG pCO2 POC ABG pO2 ABG pO2 ABG HCO3 ABG Base Excess ABG Hemoglobin Oxyhemoglobin Sodium Potassium Chloride 96.4 L Carbon Dioxide 21 L BUN 57 H Creatinine 2.1 H Glucose 151 H POC Glucose 146 H 141 H Lactic Acid Calcium 8.3 L Phosphorus Magnesium Direct Bilirubin AST ALT Alkaline Phosphatase Lactate Dehydrogenase Troponin T C-Reactive Protein Total Protein Albumin Prealbumin Triglycerides Cholesterol LDL Cholesterol Direct HDL Cholesterol Urine pH Urine WBC (Auto) Urine Creatinine Urine Total Protein Fluid Total Protein Vancomycin Trough Rheumatoid Factor Complement C4 Miscellaneous Test Crossmatch 10/11/16 10/11/16 10/11/16 04:15 04:15 05:30 WBC 28.3 H RBC 3.12 L Hgb 9.3 L Hct 28.7 L D MCV MCH MCHC RDW 17.7 H Plt Count 128 L Lymph % (Auto) [place]nn % (Auto) Lymph # [place] # Baso # Seg Neutrophils % Seg Neuts % (Manual) Lymphocytes % (Manual) Monocytes % (Manual) Eosinophils % (Manual) Basophils % (Manual) Nucleated RBC % Seg Neutrophils # Seg Neutrophils # Man Lymphocytes # (Manual) Monocytes # (Manual) Eosinophils # (Manual) Basophils # (Manual) PT INR Fibrinogen dRVVT Confirm Interp Factor V Activity POC ABG pH POC ABG pCO2 POC ABG pO2 ABG pO2 ABG HCO3 ABG Base Excess ABG Hemoglobin Oxyhemoglobin Sodium Potassium Chloride Carbon Dioxide BUN Creatinine Glucose POC Glucose 167 H Lactic Acid Calcium Phosphorus Magnesium Direct Bilirubin AST ALT Alkaline Phosphatase Lactate Dehydrogenase Troponin T C-Reactive Protein 15.80 H Total Protein Albumin Prealbumin Triglycerides Cholesterol LDL Cholesterol Direct HDL Cholesterol Urine pH Urine WBC (Auto) Urine Creatinine Urine Total Protein Fluid Total Protein Vancomycin Trough Rheumatoid Factor Complement C4 Miscellaneous Test Crossmatch 10/11/16 10/11/16 10/11/16 11:40 15:49 23:57 WBC RBC Hgb Hct MCV MCH MCHC RDW Plt Count Lymph % (Auto) [place]nn % (Auto) Lymph # [place] # Baso # Seg Neutrophils % Seg Neuts % (Manual) Lymphocytes % (Manual) Monocytes % (Manual) Eosinophils % (Manual) Basophils % (Manual) Nucleated RBC % Seg Neutrophils # Seg Neutrophils # Man Lymphocytes # (Manual) Monocytes # (Manual) Eosinophils # (Manual) Basophils # (Manual) PT INR Fibrinogen dRVVT Confirm Interp Factor V Activity POC ABG pH POC ABG pCO2 POC ABG pO2 ABG pO2 ABG HCO3 ABG Base Excess ABG Hemoglobin Oxyhemoglobin Sodium Potassium Chloride Carbon Dioxide BUN Creatinine Glucose POC Glucose 139 H 168 H 161 H Lactic Acid Calcium Phosphorus Magnesium Direct Bilirubin AST ALT Alkaline Phosphatase Lactate Dehydrogenase Troponin T C-Reactive Protein Total Protein Albumin Prealbumin Triglycerides Cholesterol LDL Cholesterol Direct HDL Cholesterol Urine pH Urine WBC (Auto) Urine Creatinine Urine Total Protein Fluid Total Protein Vancomycin Trough Rheumatoid Factor Complement C4 Miscellaneous Test Crossmatch 10/12/16 10/12/16 10/12/16 04:40 04:40 05:44 WBC 22.5 H RBC 2.88 L Hgb 8.8 L Hct 26.8 L MCV MCH MCHC RDW 17.8 H Plt Count Lymph % (Auto) [place]nn % (Auto) Lymph # [place] # Baso # Seg Neutrophils % Seg Neuts % (Manual) Lymphocytes % (Manual) Monocytes % (Manual) Eosinophils % (Manual) Basophils % (Manual) Nucleated RBC % Seg Neutrophils # Seg Neutrophils # Man Lymphocytes # (Manual) Monocytes # (Manual) Eosinophils # (Manual) Basophils # (Manual) PT INR Fibrinogen dRVVT Confirm Interp Factor V Activity POC ABG pH POC ABG pCO2 POC ABG pO2 ABG pO2 ABG HCO3 ABG Base Excess ABG Hemoglobin Oxyhemoglobin Sodium 134 L Potassium Chloride 93.0 L Carbon Dioxide BUN 74 H Creatinine 2.5 H Glucose 137 H POC Glucose 158 H Lactic Acid Calcium 8.2 L Phosphorus Magnesium Direct Bilirubin AST ALT Alkaline Phosphatase Lactate Dehydrogenase Troponin T C-Reactive Protein Total Protein Albumin Prealbumin Triglycerides Cholesterol LDL Cholesterol Direct HDL Cholesterol Urine pH Urine WBC (Auto) Urine Creatinine Urine Total Protein Fluid Total Protein Vancomycin Trough Rheumatoid Factor Complement C4 Miscellaneous Test Crossmatch 10/12/16 10/12/16 10/12/16 12:27 18:18 23:46 WBC RBC Hgb Hct MCV MCH MCHC RDW Plt Count Lymph % (Auto) [place]nn % (Auto) Lymph # [place] # Baso # Seg Neutrophils % Seg Neuts % (Manual) Lymphocytes % (Manual) Monocytes % (Manual) Eosinophils % (Manual) Basophils % (Manual) Nucleated RBC % Seg Neutrophils # Seg Neutrophils # Man Lymphocytes # (Manual) Monocytes # (Manual) Eosinophils # (Manual) Basophils # (Manual) PT INR Fibrinogen dRVVT Confirm Interp Factor V Activity POC ABG pH POC ABG pCO2 POC ABG pO2 ABG pO2 ABG HCO3 ABG Base Excess ABG Hemoglobin Oxyhemoglobin Sodium Potassium Chloride Carbon Dioxide BUN Creatinine Glucose POC Glucose 153 H 140 H 150 H Lactic Acid Calcium Phosphorus Magnesium Direct Bilirubin AST ALT Alkaline Phosphatase Lactate Dehydrogenase Troponin T C-Reactive Protein Total Protein Albumin Prealbumin Triglycerides Cholesterol LDL Cholesterol Direct HDL Cholesterol Urine pH Urine WBC (Auto) Urine Creatinine Urine Total Protein Fluid Total Protein Vancomycin Trough Rheumatoid Factor Complement C4 Miscellaneous Test Crossmatch 10/13/16 10/13/16 10/13/16 06:22 09:20 12:29 WBC RBC Hgb Hct MCV MCH MCHC RDW Plt Count Lymph % (Auto) [place]nn % (Auto) Lymph # [place] # Baso # Seg Neutrophils % Seg Neuts % (Manual) Lymphocytes % (Manual) Monocytes % (Manual) Eosinophils % (Manual) Basophils % (Manual) Nucleated RBC % Seg Neutrophils # Seg Neutrophils # Man Lymphocytes # (Manual) Monocytes # (Manual) Eosinophils # (Manual) Basophils # (Manual) PT INR Fibrinogen dRVVT Confirm Interp Factor V Activity POC ABG pH POC ABG pCO2 POC ABG pO2 ABG pO2 ABG HCO3 ABG Base Excess ABG Hemoglobin Oxyhemoglobin Sodium Potassium Chloride Carbon Dioxide BUN Creatinine Glucose POC Glucose 165 H 193 H Lactic Acid Calcium Phosphorus Magnesium Direct Bilirubin AST ALT Alkaline Phosphatase Lactate Dehydrogenase Troponin T C-Reactive Protein Total Protein Albumin Prealbumin Triglycerides Cholesterol LDL Cholesterol Direct HDL Cholesterol Urine pH Urine WBC (Auto) Urine Creatinine Urine Total Protein Fluid Total Protein Vancomycin Trough Rheumatoid Factor Complement C4 Miscellaneous Test Flexitest 1 H Crossmatch 10/13/16 10/13/16 10/13/16 18:09 Unknown Unknown WBC 23.4 H RBC 2.83 L Hgb 8.7 L Hct 26.1 L MCV MCH MCHC RDW 18.1 H Plt Count Lymph % (Auto) [place]nn % (Auto) Lymph # [place] # Baso # Seg Neutrophils % Seg Neuts % (Manual) Lymphocytes % (Manual) Monocytes % (Manual) Eosinophils % (Manual) Basophils % (Manual) Nucleated RBC % Seg Neutrophils # Seg Neutrophils # Man Lymphocytes # (Manual) Monocytes # (Manual) Eosinophils # (Manual) Basophils # (Manual) PT INR Fibrinogen dRVVT Confirm Interp Factor V Activity POC ABG pH POC ABG pCO2 POC ABG pO2 ABG pO2 ABG HCO3 ABG Base Excess ABG Hemoglobin Oxyhemoglobin Sodium Potassium Chloride 95.8 L Carbon Dioxide BUN 82 H Creatinine 2.6 H Glucose 152 H POC Glucose 166 H Lactic Acid Calcium Phosphorus Magnesium Direct Bilirubin AST ALT Alkaline Phosphatase Lactate Dehydrogenase Troponin T C-Reactive Protein Total Protein Albumin Prealbumin Triglycerides Cholesterol LDL Cholesterol Direct HDL Cholesterol Urine pH Urine WBC (Auto) Urine Creatinine Urine Total Protein Fluid Total Protein Vancomycin Trough Rheumatoid Factor Complement C4 Miscellaneous Test Crossmatch 10/14/16 10/14/16 10/14/16 05:38 06:35 08:10 WBC 20.7 H RBC 2.81 L Hgb 8.4 L Hct 27.2 L MCV MCH MCHC RDW 19.4 H Plt Count Lymph % (Auto) [place]nn % (Auto) Lymph # [place] # Baso # Seg Neutrophils % Seg Neuts % (Manual) Lymphocytes % (Manual) Monocytes % (Manual) Eosinophils % (Manual) Basophils % (Manual) Nucleated RBC % Seg Neutrophils # Seg Neutrophils # Man Lymphocytes # (Manual) Monocytes # (Manual) Eosinophils # (Manual) Basophils # (Manual) PT INR Fibrinogen dRVVT Confirm Interp Factor V Activity POC ABG pH POC ABG pCO2 POC ABG pO2 ABG pO2 ABG HCO3 ABG Base Excess ABG Hemoglobin Oxyhemoglobin Sodium Potassium Chloride Carbon Dioxide BUN 58 H Creatinine 1.9 H Glucose 169 H POC Glucose 195 H Lactic Acid Calcium Phosphorus Magnesium Direct Bilirubin AST ALT Alkaline Phosphatase Lactate Dehydrogenase Troponin T C-Reactive Protein Total Protein Albumin Prealbumin Triglycerides Cholesterol LDL Cholesterol Direct HDL Cholesterol Urine pH Urine WBC (Auto) Urine Creatinine Urine Total Protein Fluid Total Protein Vancomycin Trough Rheumatoid Factor Complement C4 Miscellaneous Test Crossmatch 10/14/16 10/14/16 10/14/16 11:44 17:13 23:28 WBC RBC Hgb Hct MCV MCH MCHC RDW Plt Count Lymph % (Auto) [place]nn % (Auto) Lymph # [place] # Baso # Seg Neutrophils % Seg Neuts % (Manual) Lymphocytes % (Manual) Monocytes % (Manual) Eosinophils % (Manual) Basophils % (Manual) Nucleated RBC % Seg Neutrophils # Seg Neutrophils # Man Lymphocytes # (Manual) Monocytes # (Manual) Eosinophils # (Manual) Basophils # (Manual) PT INR Fibrinogen dRVVT Confirm Interp Factor V Activity POC ABG pH POC ABG pCO2 POC ABG pO2 ABG pO2 ABG HCO3 ABG Base Excess ABG Hemoglobin Oxyhemoglobin Sodium Potassium Chloride Carbon Dioxide BUN Creatinine Glucose POC Glucose 174 H 121 H 151 H Lactic Acid Calcium Phosphorus Magnesium Direct Bilirubin AST ALT Alkaline Phosphatase Lactate Dehydrogenase Troponin T C-Reactive Protein Total Protein Albumin Prealbumin Triglycerides Cholesterol LDL Cholesterol Direct HDL Cholesterol Urine pH Urine WBC (Auto) Urine Creatinine Urine Total Protein Fluid Total Protein Vancomycin Trough Rheumatoid Factor Complement C4 Miscellaneous Test Crossmatch 10/15/16 10/15/16 10/15/16 05:06 12:26 17:48 WBC RBC Hgb Hct MCV MCH MCHC RDW Plt Count Lymph % (Auto) [place]nn % (Auto) Lymph # [place] # Baso # Seg Neutrophils % Seg Neuts % (Manual) Lymphocytes % (Manual) Monocytes % (Manual) Eosinophils % (Manual) Basophils % (Manual) Nucleated RBC % Seg Neutrophils # Seg Neutrophils # Man Lymphocytes # (Manual) Monocytes # (Manual) Eosinophils # (Manual) Basophils # (Manual) PT INR Fibrinogen dRVVT Confirm Interp Factor V Activity POC ABG pH POC ABG pCO2 POC ABG pO2 ABG pO2 ABG HCO3 ABG Base Excess ABG Hemoglobin Oxyhemoglobin Sodium Potassium Chloride Carbon Dioxide BUN Creatinine Glucose POC Glucose 151 H 149 H 153 H Lactic Acid Calcium Phosphorus Magnesium Direct Bilirubin AST ALT Alkaline Phosphatase Lactate Dehydrogenase Troponin T C-Reactive Protein Total Protein Albumin Prealbumin Triglycerides Cholesterol LDL Cholesterol Direct HDL Cholesterol Urine pH Urine WBC (Auto) Urine Creatinine Urine Total Protein Fluid Total Protein Vancomycin Trough Rheumatoid Factor Complement C4 Miscellaneous Test Crossmatch 10/15/16 10/15/16 10/16/16 Unknown Unknown 00:02 WBC 23.4 H RBC 2.78 L Hgb 8.5 L Hct 25.7 L MCV MCH MCHC RDW 18.7 H Plt Count Lymph % (Auto) [place]nn % (Auto) Lymph # [place] # Baso # Seg Neutrophils % Seg Neuts % (Manual) Lymphocytes % (Manual) Monocytes % (Manual) Eosinophils % (Manual) Basophils % (Manual) Nucleated RBC % Seg Neutrophils # Seg Neutrophils # Man Lymphocytes # (Manual) Monocytes # (Manual) Eosinophils # (Manual) Basophils # (Manual) PT INR Fibrinogen dRVVT Confirm Interp Factor V Activity POC ABG pH POC ABG pCO2 POC ABG pO2 ABG pO2 ABG HCO3 ABG Base Excess ABG Hemoglobin Oxyhemoglobin Sodium Potassium Chloride Carbon Dioxide BUN 73 H Creatinine 2.3 H Glucose 120 H POC Glucose 137 H Lactic Acid Calcium Phosphorus Magnesium Direct Bilirubin AST ALT Alkaline Phosphatase Lactate Dehydrogenase Troponin T C-Reactive Protein Total Protein Albumin Prealbumin Triglycerides Cholesterol LDL Cholesterol Direct HDL Cholesterol Urine pH Urine WBC (Auto) Urine Creatinine Urine Total Protein Fluid Total Protein Vancomycin Trough Rheumatoid Factor Complement C4 Miscellaneous Test Crossmatch 10/16/16 10/16/16 10/16/16 05:44 06:25 06:25 WBC 22.5 H RBC 2.76 L Hgb 8.3 L Hct 25.2 L MCV MCH MCHC RDW 18.3 H Plt Count Lymph % (Auto) [place]nn % (Auto) Lymph # [place] # Baso # Seg Neutrophils % Seg Neuts % (Manual) Lymphocytes % (Manual) Monocytes % (Manual) Eosinophils % (Manual) Basophils % (Manual) Nucleated RBC % Seg Neutrophils # Seg Neutrophils # Man Lymphocytes # (Manual) Monocytes # (Manual) Eosinophils # (Manual) Basophils # (Manual) PT INR Fibrinogen dRVVT Confirm Interp Factor V Activity POC ABG pH POC ABG pCO2 POC ABG pO2 ABG pO2 ABG HCO3 ABG Base Excess ABG Hemoglobin Oxyhemoglobin Sodium Potassium Chloride Carbon Dioxide BUN 92 H Creatinine 3.0 H Glucose 138 H POC Glucose 110 H Lactic Acid Calcium Phosphorus Magnesium Direct Bilirubin AST ALT Alkaline Phosphatase Lactate Dehydrogenase Troponin T C-Reactive Protein Total Protein Albumin Prealbumin Triglycerides Cholesterol LDL Cholesterol Direct HDL Cholesterol Urine pH Urine WBC (Auto) Urine Creatinine Urine Total Protein Fluid Total Protein Vancomycin Trough Rheumatoid Factor Complement C4 Miscellaneous Test Crossmatch 10/16/16 10/16/16 10/16/16 11:27 11:48 17:36 WBC RBC Hgb Hct MCV MCH MCHC RDW Plt Count Lymph % (Auto) [place]nn % (Auto) Lymph # [place] # Baso # Seg Neutrophils % Seg Neuts % (Manual) Lymphocytes % (Manual) Monocytes % (Manual) Eosinophils % (Manual) Basophils % (Manual) Nucleated RBC % Seg Neutrophils # Seg Neutrophils # Man Lymphocytes # (Manual) Monocytes # (Manual) Eosinophils # (Manual) Basophils # (Manual) PT INR Fibrinogen dRVVT Confirm Interp Factor V Activity POC ABG pH 7.582 H POC ABG pCO2 27.4 L POC ABG pO2 110 H ABG pO2 ABG HCO3 ABG Base Excess ABG Hemoglobin Oxyhemoglobin Sodium Potassium Chloride Carbon Dioxide BUN Creatinine Glucose POC Glucose 121 H 133 H Lactic Acid Calcium Phosphorus Magnesium Direct Bilirubin AST ALT Alkaline Phosphatase Lactate Dehydrogenase Troponin T C-Reactive Protein Total Protein Albumin Prealbumin Triglycerides Cholesterol LDL Cholesterol Direct HDL Cholesterol Urine pH Urine WBC (Auto) Urine Creatinine Urine Total Protein Fluid Total Protein Vancomycin Trough Rheumatoid Factor Complement C4 Miscellaneous Test Crossmatch 10/16/16 10/17/16 10/17/16 20:48 04:24 04:24 WBC 21.4 H RBC 2.72 L Hgb 8.0 L Hct 25.2 L MCV MCH MCHC RDW 18.0 H Plt Count Lymph % (Auto) [place]nn % (Auto) Lymph # [place]nn # Baso # Seg Neutrophils % Seg Neuts % (Manual) Lymphocytes % (Manual) Monocytes % (Manual) Eosinophils % (Manual) Basophils % (Manual) Nucleated RBC % Seg Neutrophils # Seg Neutrophils # Man Lymphocytes # (Manual) Monocytes # (Manual) Eosinophils # (Manual) Basophils # (Manual) PT INR Fibrinogen dRVVT Confirm Interp Factor V Activity POC ABG pH 7.561 H POC ABG pCO2 24.4 L POC ABG pO2 77 L ABG pO2 ABG HCO3 ABG Base Excess ABG Hemoglobin Oxyhemoglobin Sodium 148 H Potassium Chloride Carbon Dioxide BUN 104 H Creatinine 3.0 H Glucose 149 H POC Glucose Lactic Acid Calcium Phosphorus Magnesium Direct Bilirubin AST ALT Alkaline Phosphatase 138 H Lactate Dehydrogenase Troponin T C-Reactive Protein Total Protein 6.2 L Albumin 1.5 L Prealbumin Triglycerides Cholesterol LDL Cholesterol Direct HDL Cholesterol Urine pH Urine WBC (Auto) Urine Creatinine Urine Total Protein Fluid Total Protein Vancomycin Trough Rheumatoid Factor Complement C4 Miscellaneous Test Crossmatch 10/17/16 10/17/16 10/17/16 06:02 12:17 17:14 WBC RBC Hgb Hct MCV MCH MCHC RDW Plt Count Lymph % (Auto) [place]nn % (Auto) Lymph # [place] # Baso # Seg Neutrophils % Seg Neuts % (Manual) Lymphocytes % (Manual) Monocytes % (Manual) Eosinophils % (Manual) Basophils % (Manual) Nucleated RBC % Seg Neutrophils # Seg Neutrophils # Man Lymphocytes # (Manual) Monocytes # (Manual) Eosinophils # (Manual) Basophils # (Manual) PT INR Fibrinogen dRVVT Confirm Interp Factor V Activity POC ABG pH POC ABG pCO2 POC ABG pO2 ABG pO2 ABG HCO3 ABG Base Excess ABG Hemoglobin Oxyhemoglobin Sodium Potassium Chloride Carbon Dioxide BUN Creatinine Glucose POC Glucose 170 H 167 H 126 H Lactic Acid Calcium Phosphorus Magnesium Direct Bilirubin AST ALT Alkaline Phosphatase Lactate Dehydrogenase Troponin T C-Reactive Protein Total Protein Albumin Prealbumin Triglycerides Cholesterol LDL Cholesterol Direct HDL Cholesterol Urine pH Urine WBC (Auto) Urine Creatinine Urine Total Protein Fluid Total Protein Vancomycin Trough Rheumatoid Factor Complement C4 Miscellaneous Test Crossmatch 10/17/16 10/18/16 10/18/16 23:17 04:00 04:00 WBC 20.7 H RBC 2.47 L Hgb 7.4 L Hct 22.9 L MCV MCH MCHC RDW 17.5 H Plt Count Lymph % (Auto) [place]nn % (Auto) Lymph # [place] # Baso # Seg Neutrophils % Seg Neuts % (Manual) Lymphocytes % (Manual) Monocytes % (Manual) Eosinophils % (Manual) Basophils % (Manual) Nucleated RBC % Seg Neutrophils # Seg Neutrophils # Man Lymphocytes # (Manual) Monocytes # (Manual) Eosinophils # (Manual) Basophils # (Manual) PT INR Fibrinogen dRVVT Confirm Interp Factor V Activity POC ABG pH POC ABG pCO2 POC ABG pO2 ABG pO2 ABG HCO3 ABG Base Excess ABG Hemoglobin Oxyhemoglobin Sodium 149 H Potassium Chloride 107.9 H Carbon Dioxide 20 L BUN 117 H Creatinine 3.2 H Glucose 119 H POC Glucose 121 H Lactic Acid Calcium Phosphorus Magnesium Direct Bilirubin AST ALT Alkaline Phosphatase Lactate Dehydrogenase Troponin T C-Reactive Protein Total Protein Albumin Prealbumin Triglycerides Cholesterol LDL Cholesterol Direct HDL Cholesterol Urine pH Urine WBC (Auto) Urine Creatinine Urine Total Protein Fluid Total Protein Vancomycin Trough Rheumatoid Factor Complement C4 Miscellaneous Test Crossmatch 10/18/16 10/18/16 10/18/16 05:23 10:46 17:30 WBC RBC Hgb Hct MCV MCH MCHC RDW Plt Count Lymph % (Auto) [place]nn % (Auto) Lymph # [place] # Baso # Seg Neutrophils % Seg Neuts % (Manual) Lymphocytes % (Manual) Monocytes % (Manual) Eosinophils % (Manual) Basophils % (Manual) Nucleated RBC % Seg Neutrophils # Seg Neutrophils # Man Lymphocytes # (Manual) Monocytes # (Manual) Eosinophils # (Manual) Basophils # (Manual) PT INR Fibrinogen dRVVT Confirm Interp Factor V Activity POC ABG pH POC ABG pCO2 POC ABG pO2 ABG pO2 ABG HCO3 ABG Base Excess ABG Hemoglobin Oxyhemoglobin Sodium Potassium Chloride Carbon Dioxide BUN Creatinine Glucose POC Glucose 119 H 155 H 124 H Lactic Acid Calcium Phosphorus Magnesium Direct Bilirubin AST ALT Alkaline Phosphatase Lactate Dehydrogenase Troponin T C-Reactive Protein Total Protein Albumin Prealbumin Triglycerides Cholesterol LDL Cholesterol Direct HDL Cholesterol Urine pH Urine WBC (Auto) Urine Creatinine Urine Total Protein Fluid Total Protein Vancomycin Trough Rheumatoid Factor Complement C4 Miscellaneous Test Crossmatch 10/19/16 10/19/16 10/19/16 04:00 04:00 05:25 WBC 17.4 H RBC 2.54 L Hgb 7.7 L Hct 23.6 L MCV MCH MCHC RDW 17.3 H Plt Count Lymph % (Auto) [place] % (Auto) Lymph # [place] # Baso # Seg Neutrophils % Seg Neuts % (Manual) Lymphocytes % (Manual) Monocytes % (Manual) Eosinophils % (Manual) Basophils % (Manual) Nucleated RBC % Seg Neutrophils # Seg Neutrophils # Man Lymphocytes # (Manual) Monocytes # (Manual) Eosinophils # (Manual) Basophils # (Manual) PT INR Fibrinogen dRVVT Confirm Interp Factor V Activity POC ABG pH POC ABG pCO2 POC ABG pO2 ABG pO2 ABG HCO3 ABG Base Excess ABG Hemoglobin Oxyhemoglobin Sodium Potassium Chloride Carbon Dioxide BUN 72 H Creatinine 2.1 H Glucose 116 H POC Glucose 119 H Lactic Acid Calcium Phosphorus Magnesium Direct Bilirubin AST ALT Alkaline Phosphatase Lactate Dehydrogenase Troponin T C-Reactive Protein Total Protein Albumin Prealbumin Triglycerides Cholesterol LDL Cholesterol Direct HDL Cholesterol Urine pH Urine WBC (Auto) Urine Creatinine Urine Total Protein Fluid Total Protein Vancomycin Trough Rheumatoid Factor Complement C4 Miscellaneous Test Crossmatch 10/19/16 10/19/16 10/20/16 11:46 23:59 06:00 WBC RBC Hgb Hct MCV MCH MCHC RDW Plt Count Lymph % (Auto) [place] % (Auto) Lymph # [place] # Baso # Seg Neutrophils % Seg Neuts % (Manual) Lymphocytes % (Manual) Monocytes % (Manual) Eosinophils % (Manual) Basophils % (Manual) Nucleated RBC % Seg Neutrophils # Seg Neutrophils # Man Lymphocytes # (Manual) Monocytes # (Manual) Eosinophils # (Manual) Basophils # (Manual) PT INR Fibrinogen dRVVT Confirm Interp Factor V Activity POC ABG pH POC ABG pCO2 POC ABG pO2 ABG pO2 ABG HCO3 ABG Base Excess ABG Hemoglobin Oxyhemoglobin Sodium Potassium Chloride Carbon Dioxide 17 L BUN 94 H Creatinine 2.7 H Glucose POC Glucose 116 H 117 H Lactic Acid Calcium Phosphorus Magnesium Direct Bilirubin AST ALT Alkaline Phosphatase Lactate Dehydrogenase Troponin T C-Reactive Protein Total Protein Albumin Prealbumin Triglycerides Cholesterol LDL Cholesterol Direct HDL Cholesterol Urine pH Urine WBC (Auto) Urine Creatinine Urine Total Protein Fluid Total Protein Vancomycin Trough Rheumatoid Factor Complement C4 Miscellaneous Test Crossmatch 10/20/16 10/20/16 10/20/16 06:00 11:49 16:00 WBC 19.7 H RBC 2.51 L Hgb 7.7 L Hct 23.5 L MCV MCH MCHC RDW 17.5 H Plt Count Lymph % (Auto) [place] % (Auto) Lymph # [place] # Baso # Seg Neutrophils % Seg Neuts % (Manual) Lymphocytes % (Manual) Monocytes % (Manual) Eosinophils % (Manual) Basophils % (Manual) Nucleated RBC % Seg Neutrophils # Seg Neutrophils # Man Lymphocytes # (Manual) Monocytes # (Manual) Eosinophils # (Manual) Basophils # (Manual) PT INR Fibrinogen dRVVT Confirm Interp Factor V Activity POC ABG pH POC ABG pCO2 POC ABG pO2 ABG pO2 ABG HCO3 ABG Base Excess ABG Hemoglobin Oxyhemoglobin Sodium Potassium Chloride Carbon Dioxide BUN Creatinine Glucose POC Glucose 117 H Lactic Acid Calcium Phosphorus Magnesium Direct Bilirubin AST ALT Alkaline Phosphatase Lactate Dehydrogenase Troponin T C-Reactive Protein Total Protein Albumin Prealbumin Triglycerides Cholesterol LDL Cholesterol Direct HDL Cholesterol Urine pH Urine WBC (Auto) Urine Creatinine Urine Total Protein Fluid Total Protein Vancomycin Trough Rheumatoid Factor Complement C4 Miscellaneous Test Flexitest 1 H Crossmatch 10/20/16 10/20/16 10/21/16 18:36 23:39 04:00 WBC RBC Hgb Hct MCV MCH MCHC RDW Plt Count Lymph % (Auto) [place] % (Auto) Lymph # [place] # Baso # Seg Neutrophils % Seg Neuts % (Manual) Lymphocytes % (Manual) Monocytes % (Manual) Eosinophils % (Manual) Basophils % (Manual) Nucleated RBC % Seg Neutrophils # Seg Neutrophils # Man Lymphocytes # (Manual) Monocytes # (Manual) Eosinophils # (Manual) Basophils # (Manual) PT INR Fibrinogen dRVVT Confirm Interp Factor V Activity POC ABG pH POC ABG pCO2 POC ABG pO2 ABG pO2 ABG HCO3 ABG Base Excess ABG Hemoglobin Oxyhemoglobin Sodium Potassium 5.4 H D Chloride Carbon Dioxide 15 L BUN 110 H Creatinine 3.0 H Glucose POC Glucose 127 H 114 H Lactic Acid Calcium Phosphorus Magnesium Direct Bilirubin AST ALT Alkaline Phosphatase Lactate Dehydrogenase Troponin T C-Reactive Protein Total Protein Albumin Prealbumin Triglycerides Cholesterol LDL Cholesterol Direct HDL Cholesterol Urine pH Urine WBC (Auto) Urine Creatinine Urine Total Protein Fluid Total Protein Vancomycin Trough Rheumatoid Factor Complement C4 Miscellaneous Test Crossmatch 10/21/16 10/21/16 10/22/16 05:54 23:46 05:18 WBC RBC Hgb Hct MCV MCH MCHC RDW Plt Count Lymph % (Auto) [place] % (Auto) Lymph # [place] # Baso # Seg Neutrophils % Seg Neuts % (Manual) Lymphocytes % (Manual) Monocytes % (Manual) Eosinophils % (Manual) Basophils % (Manual) Nucleated RBC % Seg Neutrophils # Seg Neutrophils # Man Lymphocytes # (Manual) Monocytes # (Manual) Eosinophils # (Manual) Basophils # (Manual) PT INR Fibrinogen dRVVT Confirm Interp Factor V Activity POC ABG pH POC ABG pCO2 POC ABG pO2 ABG pO2 ABG HCO3 ABG Base Excess ABG Hemoglobin Oxyhemoglobin Sodium Potassium Chloride Carbon Dioxide BUN Creatinine Glucose POC Glucose 119 H 108 H 109 H Lactic Acid Calcium Phosphorus Magnesium Direct Bilirubin AST ALT Alkaline Phosphatase Lactate Dehydrogenase Troponin T C-Reactive Protein Total Protein Albumin Prealbumin Triglycerides Cholesterol LDL Cholesterol Direct HDL Cholesterol Urine pH Urine WBC (Auto) Urine Creatinine Urine Total Protein Fluid Total Protein Vancomycin Trough Rheumatoid Factor Complement C4 Miscellaneous Test Crossmatch 10/22/16 10/22/16 10/22/16 06:40 06:40 06:40 WBC 14.0 H RBC 2.03 L Hgb 7.0 L Hct 20.5 L MCV 98 H MCH 34 H MCHC 35 H RDW 17.8 H Plt Count Lymph % (Auto) [place] % (Auto) 9.9 H Lymph # [place] # 1.4 H Baso # 0.2 H Seg Neutrophils % 72.0 H Seg Neuts % (Manual) Lymphocytes % (Manual) Monocytes % (Manual) Eosinophils % (Manual) Basophils % (Manual) Nucleated RBC % Seg Neutrophils # 10.0 H Seg Neutrophils # Man Lymphocytes # (Manual) Monocytes # (Manual) Eosinophils # (Manual) Basophils # (Manual) PT INR Fibrinogen dRVVT Confirm Interp Factor V Activity POC ABG pH POC ABG pCO2 POC ABG pO2 ABG pO2 ABG HCO3 ABG Base Excess ABG Hemoglobin Oxyhemoglobin Sodium 130 L D Potassium Chloride 92.4 L Carbon Dioxide 20 L BUN 50 H Creatinine 1.6 H Glucose 589 H* POC Glucose Lactic Acid Calcium 7.8 L D Phosphorus Magnesium 1.60 L Direct Bilirubin AST ALT Alkaline Phosphatase Lactate Dehydrogenase Troponin T C-Reactive Protein Total Protein Albumin Prealbumin Triglycerides Cholesterol LDL Cholesterol Direct HDL Cholesterol Urine pH Urine WBC (Auto) Urine Creatinine Urine Total Protein Fluid Total Protein Vancomycin Trough Rheumatoid Factor Complement C4 Miscellaneous Test Crossmatch 10/22/16 10/22/16 10/22/16 11:39 16:44 23:36 WBC RBC Hgb Hct MCV MCH MCHC RDW Plt Count Lymph % (Auto) [place] % (Auto) Lymph # [place] # Baso # Seg Neutrophils % Seg Neuts % (Manual) Lymphocytes % (Manual) Monocytes % (Manual) Eosinophils % (Manual) Basophils % (Manual) Nucleated RBC % Seg Neutrophils # Seg Neutrophils # Man Lymphocytes # (Manual) Monocytes # (Manual) Eosinophils # (Manual) Basophils # (Manual) PT INR Fibrinogen dRVVT Confirm Interp Factor V Activity POC ABG pH POC ABG pCO2 POC ABG pO2 ABG pO2 ABG HCO3 ABG Base Excess ABG Hemoglobin Oxyhemoglobin Sodium Potassium Chloride Carbon Dioxide BUN Creatinine Glucose POC Glucose 142 H 163 H 123 H Lactic Acid Calcium Phosphorus Magnesium Direct Bilirubin AST ALT Alkaline Phosphatase Lactate Dehydrogenase Troponin T C-Reactive Protein Total Protein Albumin Prealbumin Triglycerides Cholesterol LDL Cholesterol Direct HDL Cholesterol Urine pH Urine WBC (Auto) Urine Creatinine Urine Total Protein Fluid Total Protein Vancomycin Trough Rheumatoid Factor Complement C4 Miscellaneous Test Crossmatch 10/23/16 10/23/16 10/23/16 04:58 06:00 12:12 WBC RBC Hgb Hct MCV MCH MCHC RDW Plt Count Lymph % (Auto) [place] % (Auto) Lymph # [place] # Baso # Seg Neutrophils % Seg Neuts % (Manual) Lymphocytes % (Manual) Monocytes % (Manual) Eosinophils % (Manual) Basophils % (Manual) Nucleated RBC % Seg Neutrophils # Seg Neutrophils # Man Lymphocytes # (Manual) Monocytes # (Manual) Eosinophils # (Manual) Basophils # (Manual) PT INR Fibrinogen dRVVT Confirm Interp Factor V Activity POC ABG pH POC ABG pCO2 POC ABG pO2 ABG pO2 ABG HCO3 ABG Base Excess ABG Hemoglobin Oxyhemoglobin Sodium 133 L Potassium 3.5 L Chloride 96.1 L Carbon Dioxide 18 L BUN 76 H Creatinine 2.1 H Glucose POC Glucose 133 H 138 H Lactic Acid Calcium 8.3 L Phosphorus Magnesium Direct Bilirubin AST ALT Alkaline Phosphatase Lactate Dehydrogenase Troponin T C-Reactive Protein Total Protein Albumin Prealbumin Triglycerides Cholesterol LDL Cholesterol Direct HDL Cholesterol Urine pH Urine WBC (Auto) Urine Creatinine Urine Total Protein Fluid Total Protein Vancomycin Trough Rheumatoid Factor Complement C4 Miscellaneous Test Crossmatch 10/23/16 10/23/16 10/24/16 16:53 23:37 04:00 WBC RBC Hgb Hct MCV MCH MCHC RDW Plt Count Lymph % (Auto) [place] % (Auto) Lymph # [place] # Baso # Seg Neutrophils % Seg Neuts % (Manual) Lymphocytes % (Manual) Monocytes % (Manual) Eosinophils % (Manual) Basophils % (Manual) Nucleated RBC % Seg Neutrophils # Seg Neutrophils # Man Lymphocytes # (Manual) Monocytes # (Manual) Eosinophils # (Manual) Basophils # (Manual) PT INR Fibrinogen dRVVT Confirm Interp Factor V Activity POC ABG pH POC ABG pCO2 POC ABG pO2 ABG pO2 ABG HCO3 ABG Base Excess ABG Hemoglobin Oxyhemoglobin Sodium 131 L Potassium Chloride 94.5 L Carbon Dioxide 19 L BUN 97 H Creatinine 2.6 H Glucose 110 H POC Glucose 125 H 123 H Lactic Acid Calcium 8.3 L Phosphorus Magnesium Direct Bilirubin AST ALT Alkaline Phosphatase Lactate Dehydrogenase Troponin T C-Reactive Protein Total Protein Albumin Prealbumin Triglycerides Cholesterol LDL Cholesterol Direct HDL Cholesterol Urine pH Urine WBC (Auto) Urine Creatinine Urine Total Protein Fluid Total Protein Vancomycin Trough Rheumatoid Factor Complement C4 Miscellaneous Test Crossmatch 10/24/16 10/24/16 10/24/16 07:49 11:39 17:52 WBC RBC Hgb 6.0 L Hct 19.7 L* MCV MCH MCHC RDW Plt Count Lymph % (Auto) [place] % (Auto) Lymph # [place] # Baso # Seg Neutrophils % Seg Neuts % (Manual) Lymphocytes % (Manual) Monocytes % (Manual) Eosinophils % (Manual) Basophils % (Manual) Nucleated RBC % Seg Neutrophils # Seg Neutrophils # Man Lymphocytes # (Manual) Monocytes # (Manual) Eosinophils # (Manual) Basophils # (Manual) PT INR Fibrinogen dRVVT Confirm Interp Factor V Activity POC ABG pH POC ABG pCO2 POC ABG pO2 ABG pO2 ABG HCO3 ABG Base Excess ABG Hemoglobin Oxyhemoglobin Sodium Potassium Chloride Carbon Dioxide BUN Creatinine Glucose POC Glucose 106 H 158 H Lactic Acid Calcium Phosphorus Magnesium Direct Bilirubin AST ALT Alkaline Phosphatase Lactate Dehydrogenase Troponin T C-Reactive Protein Total Protein Albumin Prealbumin Triglycerides Cholesterol LDL Cholesterol Direct HDL Cholesterol Urine pH Urine WBC (Auto) Urine Creatinine Urine Total Protein Fluid Total Protein Vancomycin Trough Rheumatoid Factor Complement C4 Miscellaneous Test Crossmatch 10/24/16 10/24/16 10/24/16 20:00 22:27 Unknown WBC RBC Hgb 9.4 L D Hct 27.5 L D MCV MCH MCHC RDW Plt Count Lymph % (Auto) [place] % (Auto) Lymph # [place] # Baso # Seg Neutrophils % Seg Neuts % (Manual) Lymphocytes % (Manual) Monocytes % (Manual) Eosinophils % (Manual) Basophils % (Manual) Nucleated RBC % Seg Neutrophils # Seg Neutrophils # Man Lymphocytes # (Manual) Monocytes # (Manual) Eosinophils # (Manual) Basophils # (Manual) PT INR Fibrinogen dRVVT Confirm Interp Factor V Activity POC ABG pH POC ABG pCO2 POC ABG pO2 ABG pO2 ABG HCO3 ABG Base Excess ABG Hemoglobin Oxyhemoglobin Sodium Potassium Chloride Carbon Dioxide BUN Creatinine Glucose POC Glucose 125 H Lactic Acid Calcium Phosphorus Magnesium Direct Bilirubin AST ALT Alkaline Phosphatase Lactate Dehydrogenase Troponin T C-Reactive Protein Total Protein Albumin Prealbumin Triglycerides Cholesterol LDL Cholesterol Direct HDL Cholesterol Urine pH Urine WBC (Auto) Urine Creatinine Urine Total Protein Fluid Total Protein Vancomycin Trough Rheumatoid Factor Complement C4 Miscellaneous Test Crossmatch See Detail 10/25/16 10/25/16 10/25/16 04:00 04:00 04:00 WBC 14.2 H RBC 2.98 L Hgb 9.0 L Hct 26.2 L MCV MCH MCHC RDW 16.6 H Plt Count Lymph % (Auto) [place] % (Auto) 10.7 H Lymph # [place] # 1.5 H Baso # Seg Neutrophils % 73.6 H Seg Neuts % (Manual) Lymphocytes % (Manual) Monocytes % (Manual) Eosinophils % (Manual) Basophils % (Manual) Nucleated RBC % Seg Neutrophils # 10.5 H Seg Neutrophils # Man Lymphocytes # (Manual) Monocytes # (Manual) Eosinophils # (Manual) Basophils # (Manual) PT INR Fibrinogen dRVVT Confirm Interp Factor V Activity POC ABG pH POC ABG pCO2 POC ABG pO2 ABG pO2 ABG HCO3 ABG Base Excess ABG Hemoglobin Oxyhemoglobin Sodium 132 L Potassium Chloride 94.7 L Carbon Dioxide BUN 51 H Creatinine 1.6 H Glucose 130 H POC Glucose Lactic Acid Calcium 8.3 L Phosphorus 1.60 L D Magnesium Direct Bilirubin AST ALT Alkaline Phosphatase Lactate Dehydrogenase Troponin T C-Reactive Protein Total Protein Albumin Prealbumin Triglycerides Cholesterol LDL Cholesterol Direct HDL Cholesterol Urine pH Urine WBC (Auto) Urine Creatinine Urine Total Protein Fluid Total Protein Vancomycin Trough Rheumatoid Factor Complement C4 Miscellaneous Test Crossmatch 10/25/16 10/25/16 10/25/16 04:32 11:48 17:22 WBC RBC Hgb Hct MCV MCH MCHC RDW Plt Count Lymph % (Auto) [place] % (Auto) Lymph # [place] # Baso # Seg Neutrophils % Seg Neuts % (Manual) Lymphocytes % (Manual) Monocytes % (Manual) Eosinophils % (Manual) Basophils % (Manual) Nucleated RBC % Seg Neutrophils # Seg Neutrophils # Man Lymphocytes # (Manual) Monocytes # (Manual) Eosinophils # (Manual) Basophils # (Manual) PT INR Fibrinogen dRVVT Confirm Interp Factor V Activity POC ABG pH POC ABG pCO2 POC ABG pO2 ABG pO2 ABG HCO3 ABG Base Excess ABG Hemoglobin Oxyhemoglobin Sodium Potassium Chloride Carbon Dioxide BUN Creatinine Glucose POC Glucose 124 H 171 H 120 H Lactic Acid Calcium Phosphorus Magnesium Direct Bilirubin AST ALT Alkaline Phosphatase Lactate Dehydrogenase Troponin T C-Reactive Protein Total Protein Albumin Prealbumin Triglycerides Cholesterol LDL Cholesterol Direct HDL Cholesterol Urine pH Urine WBC (Auto) Urine Creatinine Urine Total Protein Fluid Total Protein Vancomycin Trough Rheumatoid Factor Complement C4 Miscellaneous Test Crossmatch 10/26/16 10/26/16 10/26/16 04:54 07:06 07:06 WBC 16.9 H RBC 3.06 L Hgb 9.1 L Hct 26.9 L MCV MCH MCHC RDW 16.9 H Plt Count Lymph % (Auto) [place] % (Auto) Lymph # [place] # Baso # Seg Neutrophils % Seg Neuts % (Manual) 71.0 H Lymphocytes % (Manual) 5.0 L Monocytes % (Manual) 12.0 H Eosinophils % (Manual) Basophils % (Manual) Nucleated RBC % Seg Neutrophils # Seg Neutrophils # Man 12.0 H Lymphocytes # (Manual) 0.8 L Monocytes # (Manual) 2.0 H Eosinophils # (Manual) Basophils # (Manual) PT INR Fibrinogen dRVVT Confirm Interp Factor V Activity POC ABG pH POC ABG pCO2 POC ABG pO2 ABG pO2 ABG HCO3 ABG Base Excess ABG Hemoglobin Oxyhemoglobin Sodium 135 L Potassium Chloride 97.1 L Carbon Dioxide BUN 73 H Creatinine 2.2 H Glucose 117 H POC Glucose 123 H Lactic Acid Calcium Phosphorus 1.70 L Magnesium Direct Bilirubin AST ALT Alkaline Phosphatase Lactate Dehydrogenase Troponin T C-Reactive Protein Total Protein Albumin Prealbumin Triglycerides Cholesterol LDL Cholesterol Direct HDL Cholesterol Urine pH Urine WBC (Auto) Urine Creatinine Urine Total Protein Fluid Total Protein Vancomycin Trough Rheumatoid Factor Complement C4 Miscellaneous Test Crossmatch 10/26/16 10/26/16 10/26/16 12:12 17:29 23:42 WBC RBC Hgb Hct MCV MCH MCHC RDW Plt Count Lymph % (Auto) [place] % (Auto) Lymph # [place] # Baso # Seg Neutrophils % Seg Neuts % (Manual) Lymphocytes % (Manual) Monocytes % (Manual) Eosinophils % (Manual) Basophils % (Manual) Nucleated RBC % Seg Neutrophils # Seg Neutrophils # Man Lymphocytes # (Manual) Monocytes # (Manual) Eosinophils # (Manual) Basophils # (Manual) PT INR Fibrinogen dRVVT Confirm Interp Factor V Activity POC ABG pH POC ABG pCO2 POC ABG pO2 ABG pO2 ABG HCO3 ABG Base Excess ABG Hemoglobin Oxyhemoglobin Sodium Potassium Chloride Carbon Dioxide BUN Creatinine Glucose POC Glucose 126 H 161 H 118 H Lactic Acid Calcium Phosphorus Magnesium Direct Bilirubin AST ALT Alkaline Phosphatase Lactate Dehydrogenase Troponin T C-Reactive Protein Total Protein Albumin Prealbumin Triglycerides Cholesterol LDL Cholesterol Direct HDL Cholesterol Urine pH Urine WBC (Auto) Urine Creatinine Urine Total Protein Fluid Total Protein Vancomycin Trough Rheumatoid Factor Complement C4 Miscellaneous Test Crossmatch 10/27/16 10/27/16 10/27/16 05:03 06:30 06:30 WBC 13.9 H RBC 3.09 L Hgb 9.2 L Hct 27.5 L MCV MCH MCHC RDW 17.0 H Plt Count Lymph % (Auto) [place] % (Auto) Lymph # [place] # Baso # Seg Neutrophils % Seg Neuts % (Manual) 78.0 H Lymphocytes % (Manual) Monocytes % (Manual) Eosinophils % (Manual) Basophils % (Manual) Nucleated RBC % 2.0 H Seg Neutrophils # Seg Neutrophils # Man 10.8 H Lymphocytes # (Manual) Monocytes # (Manual) 1.0 H Eosinophils # (Manual) Basophils # (Manual) PT INR Fibrinogen dRVVT Confirm Interp Factor V Activity POC ABG pH POC ABG pCO2 POC ABG pO2 ABG pO2 ABG HCO3 ABG Base Excess ABG Hemoglobin Oxyhemoglobin Sodium Potassium Chloride Carbon Dioxide BUN 40 H Creatinine 1.5 H Glucose 135 H POC Glucose 107 H Lactic Acid Calcium 8.3 L Phosphorus 1.30 L D Magnesium Direct Bilirubin AST ALT Alkaline Phosphatase Lactate Dehydrogenase Troponin T C-Reactive Protein Total Protein Albumin Prealbumin Triglycerides Cholesterol LDL Cholesterol Direct HDL Cholesterol Urine pH Urine WBC (Auto) Urine Creatinine Urine Total Protein Fluid Total Protein Vancomycin Trough Rheumatoid Factor Complement C4 Miscellaneous Test Crossmatch 10/27/16 10/27/16 10/27/16 13:27 18:07 23:40 WBC RBC Hgb Hct MCV MCH MCHC RDW Plt Count Lymph % (Auto) [place] % (Auto) Lymph # [place] # Baso # Seg Neutrophils % Seg Neuts % (Manual) Lymphocytes % (Manual) Monocytes % (Manual) Eosinophils % (Manual) Basophils % (Manual) Nucleated RBC % Seg Neutrophils # Seg Neutrophils # Man Lymphocytes # (Manual) Monocytes # (Manual) Eosinophils # (Manual) Basophils # (Manual) PT INR Fibrinogen dRVVT Confirm Interp Factor V Activity POC ABG pH POC ABG pCO2 POC ABG pO2 ABG pO2 ABG HCO3 ABG Base Excess ABG Hemoglobin Oxyhemoglobin Sodium Potassium Chloride Carbon Dioxide BUN Creatinine Glucose POC Glucose 117 H 121 H 118 H Lactic Acid Calcium Phosphorus Magnesium Direct Bilirubin AST ALT Alkaline Phosphatase Lactate Dehydrogenase Troponin T C-Reactive Protein Total Protein Albumin Prealbumin Triglycerides Cholesterol LDL Cholesterol Direct HDL Cholesterol Urine pH Urine WBC (Auto) Urine Creatinine Urine Total Protein Fluid Total Protein Vancomycin Trough Rheumatoid Factor Complement C4 Miscellaneous Test Crossmatch 10/28/16 10/28/16 10/28/16 05:48 06:45 06:45 WBC 14.7 H RBC 3.05 L Hgb 9.0 L Hct 26.9 L MCV MCH MCHC RDW 16.8 H Plt Count Lymph % (Auto) 8.2 L [place] % (Auto) 8.4 H Lymph # [place] # 1.2 H Baso # Seg Neutrophils % 81.9 H Seg Neuts % (Manual) Lymphocytes % (Manual) Monocytes % (Manual) Eosinophils % (Manual) Basophils % (Manual) Nucleated RBC % Seg Neutrophils # 12.1 H Seg Neutrophils # Man Lymphocytes # (Manual) Monocytes # (Manual) Eosinophils # (Manual) Basophils # (Manual) PT INR Fibrinogen dRVVT Confirm Interp Factor V Activity POC ABG pH POC ABG pCO2 POC ABG pO2 ABG pO2 ABG HCO3 ABG Base Excess ABG Hemoglobin Oxyhemoglobin Sodium Potassium Chloride Carbon Dioxide BUN 60 H Creatinine 1.9 H Glucose 120 H POC Glucose 114 H Lactic Acid Calcium Phosphorus Magnesium Direct Bilirubin AST ALT Alkaline Phosphatase Lactate Dehydrogenase Troponin T C-Reactive Protein Total Protein Albumin Prealbumin Triglycerides Cholesterol LDL Cholesterol Direct HDL Cholesterol Urine pH Urine WBC (Auto) Urine Creatinine Urine Total Protein Fluid Total Protein Vancomycin Trough Rheumatoid Factor Complement C4 Miscellaneous Test Crossmatch 10/28/16 10/28/16 10/29/16 17:08 23:50 05:10 WBC RBC Hgb Hct MCV MCH MCHC RDW Plt Count Lymph % (Auto) [place]nn % (Auto) Lymph # [place] # Baso # Seg Neutrophils % Seg Neuts % (Manual) Lymphocytes % (Manual) Monocytes % (Manual) Eosinophils % (Manual) Basophils % (Manual) Nucleated RBC % Seg Neutrophils # Seg Neutrophils # Man Lymphocytes # (Manual) Monocytes # (Manual) Eosinophils # (Manual) Basophils # (Manual) PT INR Fibrinogen dRVVT Confirm Interp Factor V Activity POC ABG pH POC ABG pCO2 POC ABG pO2 ABG pO2 ABG HCO3 ABG Base Excess ABG Hemoglobin Oxyhemoglobin Sodium Potassium Chloride Carbon Dioxide BUN Creatinine Glucose POC Glucose 109 H 110 H 124 H Lactic Acid Calcium Phosphorus Magnesium Direct Bilirubin AST ALT Alkaline Phosphatase Lactate Dehydrogenase Troponin T C-Reactive Protein Total Protein Albumin Prealbumin Triglycerides Cholesterol LDL Cholesterol Direct HDL Cholesterol Urine pH Urine WBC (Auto) Urine Creatinine Urine Total Protein Fluid Total Protein Vancomycin Trough Rheumatoid Factor Complement C4 Miscellaneous Test Crossmatch 10/29/16 10/29/16 10/29/16 07:45 07:45 12:19 WBC 14.7 H RBC 3.15 L Hgb 9.3 L Hct 28.9 L MCV MCH MCHC RDW 17.0 H Plt Count Lymph % (Auto) 11.9 L [place] % (Auto) 8.6 H Lymph # [place] # 1.3 H Baso # Seg Neutrophils % 78.1 H Seg Neuts % (Manual) Lymphocytes % (Manual) Monocytes % (Manual) Eosinophils % (Manual) Basophils % (Manual) Nucleated RBC % Seg Neutrophils # 11.4 H Seg Neutrophils # Man Lymphocytes # (Manual) Monocytes # (Manual) Eosinophils # (Manual) Basophils # (Manual) PT INR Fibrinogen dRVVT Confirm Interp Factor V Activity POC ABG pH POC ABG pCO2 POC ABG pO2 ABG pO2 ABG HCO3 ABG Base Excess ABG Hemoglobin Oxyhemoglobin Sodium Potassium 5.1 H Chloride Carbon Dioxide 19 L BUN 78 H Creatinine 2.2 H Glucose 116 H POC Glucose 118 H Lactic Acid Calcium Phosphorus Magnesium Direct Bilirubin AST ALT Alkaline Phosphatase Lactate Dehydrogenase Troponin T C-Reactive Protein Total Protein Albumin Prealbumin Triglycerides Cholesterol LDL Cholesterol Direct HDL Cholesterol Urine pH Urine WBC (Auto) Urine Creatinine Urine Total Protein Fluid Total Protein Vancomycin Trough Rheumatoid Factor Complement C4 Miscellaneous Test Crossmatch 10/29/16 10/30/16 10/30/16 17:49 01:52 03:28 WBC RBC Hgb Hct MCV MCH MCHC RDW Plt Count Lymph % (Auto) [place] % (Auto) Lymph # [place] # Baso # Seg Neutrophils % Seg Neuts % (Manual) Lymphocytes % (Manual) Monocytes % (Manual) Eosinophils % (Manual) Basophils % (Manual) Nucleated RBC % Seg Neutrophils # Seg Neutrophils # Man Lymphocytes # (Manual) Monocytes # (Manual) Eosinophils # (Manual) Basophils # (Manual) PT INR Fibrinogen dRVVT Confirm Interp Factor V Activity POC ABG pH POC ABG pCO2 POC ABG pO2 ABG pO2 ABG HCO3 ABG Base Excess ABG Hemoglobin Oxyhemoglobin Sodium Potassium 5.4 H Chloride 97.5 L Carbon Dioxide 19 L BUN 90 H Creatinine 2.5 H Glucose POC Glucose 120 H 129 H Lactic Acid Calcium Phosphorus 5.20 H Magnesium Direct Bilirubin AST ALT Alkaline Phosphatase Lactate Dehydrogenase Troponin T C-Reactive Protein Total Protein Albumin Prealbumin Triglycerides Cholesterol LDL Cholesterol Direct HDL Cholesterol Urine pH Urine WBC (Auto) Urine Creatinine Urine Total Protein Fluid Total Protein Vancomycin Trough Rheumatoid Factor Complement C4 Miscellaneous Test Crossmatch 10/30/16 10/30/16 10/30/16 03:28 08:19 08:19 WBC 11.6 H 15.9 H RBC 2.75 L 2.82 L Hgb 7.9 L 8.3 L Hct 24.2 L 25.2 L MCV MCH MCHC RDW 16.7 H 17.2 H Plt Count Lymph % (Auto) [place] % (Auto) 9.8 H Lymph # [place] # 1.1 H Baso # Seg Neutrophils % 74.2 H Seg Neuts % (Manual) Lymphocytes % (Manual) Monocytes % (Manual) Eosinophils % (Manual) Basophils % (Manual) Nucleated RBC % Seg Neutrophils # 8.6 H Seg Neutrophils # Man Lymphocytes # (Manual) Monocytes # (Manual) Eosinophils # (Manual) Basophils # (Manual) PT INR Fibrinogen dRVVT Confirm Interp Factor V Activity POC ABG pH POC ABG pCO2 POC ABG pO2 ABG pO2 ABG HCO3 ABG Base Excess ABG Hemoglobin Oxyhemoglobin Sodium Potassium 5.3 H Chloride 97.4 L Carbon Dioxide 19 L BUN 93 H Creatinine 2.6 H Glucose POC Glucose Lactic Acid Calcium Phosphorus Magnesium Direct Bilirubin AST ALT Alkaline Phosphatase Lactate Dehydrogenase Troponin T C-Reactive Protein Total Protein Albumin Prealbumin Triglycerides Cholesterol LDL Cholesterol Direct HDL Cholesterol Urine pH Urine WBC (Auto) Urine Creatinine Urine Total Protein Fluid Total Protein Vancomycin Trough Rheumatoid Factor Complement C4 Miscellaneous Test Crossmatch 10/30/16 10/30/16 10/31/16 17:11 23:56 00:40 WBC RBC Hgb Hct MCV MCH MCHC RDW Plt Count Lymph % (Auto) [place] % (Auto) Lymph # [place] # Baso # Seg Neutrophils % Seg Neuts % (Manual) Lymphocytes % (Manual) Monocytes % (Manual) Eosinophils % (Manual) Basophils % (Manual) Nucleated RBC % Seg Neutrophils # Seg Neutrophils # Man Lymphocytes # (Manual) Monocytes # (Manual) Eosinophils # (Manual) Basophils # (Manual) PT INR Fibrinogen dRVVT Confirm Interp Factor V Activity POC ABG pH POC ABG pCO2 POC ABG pO2 ABG pO2 ABG HCO3 ABG Base Excess ABG Hemoglobin Oxyhemoglobin Sodium Potassium Chloride Carbon Dioxide BUN Creatinine Glucose POC Glucose 106 H 117 H 120 H Lactic Acid Calcium Phosphorus Magnesium Direct Bilirubin AST ALT Alkaline Phosphatase Lactate Dehydrogenase Troponin T C-Reactive Protein Total Protein Albumin Prealbumin Triglycerides Cholesterol LDL Cholesterol Direct HDL Cholesterol Urine pH Urine WBC (Auto) Urine Creatinine Urine Total Protein Fluid Total Protein Vancomycin Trough Rheumatoid Factor Complement C4 Miscellaneous Test Crossmatch 10/31/16 10/31/16 10/31/16 05:43 07:15 07:15 WBC 12.1 H RBC 2.63 L Hgb 7.7 L Hct 23.3 L MCV MCH MCHC RDW 16.7 H Plt Count Lymph % (Auto) 11.7 L [place] % (Auto) 7.7 H Lymph # [place] # 0.9 H Baso # Seg Neutrophils % 78.0 H Seg Neuts % (Manual) Lymphocytes % (Manual) Monocytes % (Manual) Eosinophils % (Manual) Basophils % (Manual) Nucleated RBC % Seg Neutrophils # 9.4 H Seg Neutrophils # Man Lymphocytes # (Manual) Monocytes # (Manual) Eosinophils # (Manual) Basophils # (Manual) PT INR Fibrinogen dRVVT Confirm Interp Factor V Activity POC ABG pH POC ABG pCO2 POC ABG pO2 ABG pO2 ABG HCO3 ABG Base Excess ABG Hemoglobin Oxyhemoglobin Sodium Potassium Chloride 96.4 L Carbon Dioxide 21 L BUN 99 H Creatinine 2.6 H Glucose 144 H POC Glucose 125 H Lactic Acid Calcium Phosphorus 4.80 H Magnesium Direct Bilirubin AST ALT Alkaline Phosphatase Lactate Dehydrogenase Troponin T C-Reactive Protein Total Protein Albumin Prealbumin Triglycerides Cholesterol LDL Cholesterol Direct HDL Cholesterol Urine pH Urine WBC (Auto) Urine Creatinine Urine Total Protein Fluid Total Protein Vancomycin Trough Rheumatoid Factor Complement C4 Miscellaneous Test Crossmatch 10/31/16 10/31/16 11/01/16 11:46 18:34 00:20 WBC RBC Hgb Hct MCV MCH MCHC RDW Plt Count Lymph % (Auto) [place] % (Auto) Lymph # [place] # Baso # Seg Neutrophils % Seg Neuts % (Manual) Lymphocytes % (Manual) Monocytes % (Manual) Eosinophils % (Manual) Basophils % (Manual) Nucleated RBC % Seg Neutrophils # Seg Neutrophils # Man Lymphocytes # (Manual) Monocytes # (Manual) Eosinophils # (Manual) Basophils # (Manual) PT INR Fibrinogen dRVVT Confirm Interp Factor V Activity POC ABG pH POC ABG pCO2 POC ABG pO2 ABG pO2 ABG HCO3 ABG Base Excess ABG Hemoglobin Oxyhemoglobin Sodium Potassium Chloride Carbon Dioxide BUN Creatinine Glucose POC Glucose 159 H 140 H 132 H Lactic Acid Calcium Phosphorus Magnesium Direct Bilirubin AST ALT Alkaline Phosphatase Lactate Dehydrogenase Troponin T C-Reactive Protein Total Protein Albumin Prealbumin Triglycerides Cholesterol LDL Cholesterol Direct HDL Cholesterol Urine pH Urine WBC (Auto) Urine Creatinine Urine Total Protein Fluid Total Protein Vancomycin Trough Rheumatoid Factor Complement C4 Miscellaneous Test Crossmatch 11/01/16 11/01/16 11/01/16 04:55 04:55 06:11 WBC 11.2 H RBC 2.68 L Hgb 7.5 L Hct 23.7 L MCV MCH MCHC RDW 16.1 H Plt Count Lymph % (Auto) [place] % (Auto) 9.8 H Lymph # [place] # 1.1 H Baso # Seg Neutrophils % 70.8 H Seg Neuts % (Manual) Lymphocytes % (Manual) Monocytes % (Manual) Eosinophils % (Manual) Basophils % (Manual) Nucleated RBC % Seg Neutrophils # 7.9 H Seg Neutrophils # Man Lymphocytes # (Manual) Monocytes # (Manual) Eosinophils # (Manual) Basophils # (Manual) PT INR Fibrinogen dRVVT Confirm Interp Factor V Activity POC ABG pH POC ABG pCO2 POC ABG pO2 ABG pO2 ABG HCO3 ABG Base Excess ABG Hemoglobin Oxyhemoglobin Sodium Potassium 3.3 L D Chloride Carbon Dioxide BUN 61 H Creatinine 1.9 H Glucose 114 H POC Glucose 115 H Lactic Acid Calcium Phosphorus 1.80 L D Magnesium Direct Bilirubin AST ALT Alkaline Phosphatase Lactate Dehydrogenase Troponin T C-Reactive Protein Total Protein Albumin Prealbumin Triglycerides Cholesterol LDL Cholesterol Direct HDL Cholesterol Urine pH Urine WBC (Auto) Urine Creatinine Urine Total Protein Fluid Total Protein Vancomycin Trough Rheumatoid Factor Complement C4 Miscellaneous Test Crossmatch 11/01/16 11/01/16 11/01/16 12:29 18:23 23:58 WBC RBC Hgb Hct MCV MCH MCHC RDW Plt Count Lymph % (Auto) [place] % (Auto) Lymph # [place] # Baso # Seg Neutrophils % Seg Neuts % (Manual) Lymphocytes % (Manual) Monocytes % (Manual) Eosinophils % (Manual) Basophils % (Manual) Nucleated RBC % Seg Neutrophils # Seg Neutrophils # Man Lymphocytes # (Manual) Monocytes # (Manual) Eosinophils # (Manual) Basophils # (Manual) PT INR Fibrinogen dRVVT Confirm Interp Factor V Activity POC ABG pH POC ABG pCO2 POC ABG pO2 ABG pO2 ABG HCO3 ABG Base Excess ABG Hemoglobin Oxyhemoglobin Sodium Potassium Chloride Carbon Dioxide BUN Creatinine Glucose POC Glucose 142 H 143 H 128 H Lactic Acid Calcium Phosphorus Magnesium Direct Bilirubin AST ALT Alkaline Phosphatase Lactate Dehydrogenase Troponin T C-Reactive Protein Total Protein Albumin Prealbumin Triglycerides Cholesterol LDL Cholesterol Direct HDL Cholesterol Urine pH Urine WBC (Auto) Urine Creatinine Urine Total Protein Fluid Total Protein Vancomycin Trough Rheumatoid Factor Complement C4 Miscellaneous Test Crossmatch 11/02/16 11/02/16 11/02/16 04:16 05:29 11:58 WBC RBC Hgb Hct MCV MCH MCHC RDW Plt Count Lymph % (Auto) [place] % (Auto) Lymph # [place] # Baso # Seg Neutrophils % Seg Neuts % (Manual) Lymphocytes % (Manual) Monocytes % (Manual) Eosinophils % (Manual) Basophils % (Manual) Nucleated RBC % Seg Neutrophils # Seg Neutrophils # Man Lymphocytes # (Manual) Monocytes # (Manual) Eosinophils # (Manual) Basophils # (Manual) PT INR Fibrinogen dRVVT Confirm Interp Factor V Activity POC ABG pH POC ABG pCO2 POC ABG pO2 ABG pO2 ABG HCO3 ABG Base Excess ABG Hemoglobin Oxyhemoglobin Sodium Potassium 3.1 L Chloride Carbon Dioxide BUN 73 H Creatinine 2.3 H Glucose 112 H POC Glucose 135 H 149 H Lactic Acid Calcium Phosphorus Magnesium Direct Bilirubin AST ALT Alkaline Phosphatase Lactate Dehydrogenase Troponin T C-Reactive Protein Total Protein Albumin Prealbumin Triglycerides Cholesterol LDL Cholesterol Direct HDL Cholesterol Urine pH Urine WBC (Auto) Urine Creatinine Urine Total Protein Fluid Total Protein Vancomycin Trough Rheumatoid Factor Complement C4 Miscellaneous Test Crossmatch 11/02/16 11/02/16 11/03/16 17:42 22:54 06:00 WBC RBC Hgb Hct MCV MCH MCHC RDW Plt Count Lymph % (Auto) [place] % (Auto) Lymph # [place] # Baso # Seg Neutrophils % Seg Neuts % (Manual) Lymphocytes % (Manual) Monocytes % (Manual) Eosinophils % (Manual) Basophils % (Manual) Nucleated RBC % Seg Neutrophils # Seg Neutrophils # Man Lymphocytes # (Manual) Monocytes # (Manual) Eosinophils # (Manual) Basophils # (Manual) PT INR Fibrinogen dRVVT Confirm Interp Factor V Activity POC ABG pH POC ABG pCO2 POC ABG pO2 ABG pO2 ABG HCO3 ABG Base Excess ABG Hemoglobin Oxyhemoglobin Sodium Potassium Chloride 96.7 L Carbon Dioxide BUN 41 H Creatinine 1.5 H Glucose 145 H POC Glucose 182 H 115 H Lactic Acid Calcium Phosphorus 1.60 L D Magnesium 1.50 L Direct Bilirubin AST ALT Alkaline Phosphatase Lactate Dehydrogenase Troponin T C-Reactive Protein Total Protein Albumin Prealbumin Triglycerides Cholesterol LDL Cholesterol Direct HDL Cholesterol Urine pH Urine WBC (Auto) Urine Creatinine Urine Total Protein Fluid Total Protein Vancomycin Trough Rheumatoid Factor Complement C4 Miscellaneous Test Crossmatch 11/03/16 11/03/16 11/03/16 11:53 17:45 23:37 WBC RBC Hgb Hct MCV MCH MCHC RDW Plt Count Lymph % (Auto) [place] % (Auto) Lymph # [place] # Baso # Seg Neutrophils % Seg Neuts % (Manual) Lymphocytes % (Manual) Monocytes % (Manual) Eosinophils % (Manual) Basophils % (Manual) Nucleated RBC % Seg Neutrophils # Seg Neutrophils # Man Lymphocytes # (Manual) Monocytes # (Manual) Eosinophils # (Manual) Basophils # (Manual) PT INR Fibrinogen dRVVT Confirm Interp Factor V Activity POC ABG pH POC ABG pCO2 POC ABG pO2 ABG pO2 ABG HCO3 ABG Base Excess ABG Hemoglobin Oxyhemoglobin Sodium Potassium Chloride Carbon Dioxide BUN Creatinine Glucose POC Glucose 131 H 134 H 113 H Lactic Acid Calcium Phosphorus Magnesium Direct Bilirubin AST ALT Alkaline Phosphatase Lactate Dehydrogenase Troponin T C-Reactive Protein Total Protein Albumin Prealbumin Triglycerides Cholesterol LDL Cholesterol Direct HDL Cholesterol Urine pH Urine WBC (Auto) Urine Creatinine Urine Total Protein Fluid Total Protein Vancomycin Trough Rheumatoid Factor Complement C4 Miscellaneous Test Crossmatch 11/04/16 11/04/16 11/04/16 05:41 06:00 12:10 WBC RBC Hgb Hct MCV MCH MCHC RDW Plt Count Lymph % (Auto) [place] % (Auto) Lymph # [place] # Baso # Seg Neutrophils % Seg Neuts % (Manual) Lymphocytes % (Manual) Monocytes % (Manual) Eosinophils % (Manual) Basophils % (Manual) Nucleated RBC % Seg Neutrophils # Seg Neutrophils # Man Lymphocytes # (Manual) Monocytes # (Manual) Eosinophils # (Manual) Basophils # (Manual) PT INR Fibrinogen dRVVT Confirm Interp Factor V Activity POC ABG pH POC ABG pCO2 POC ABG pO2 ABG pO2 ABG HCO3 ABG Base Excess ABG Hemoglobin Oxyhemoglobin Sodium Potassium Chloride 96.7 L Carbon Dioxide BUN 52 H Creatinine 1.9 H Glucose 126 H POC Glucose 137 H 191 H Lactic Acid Calcium Phosphorus Magnesium Direct Bilirubin AST ALT Alkaline Phosphatase Lactate Dehydrogenase Troponin T C-Reactive Protein Total Protein Albumin Prealbumin Triglycerides Cholesterol LDL Cholesterol Direct HDL Cholesterol Urine pH Urine WBC (Auto) Urine Creatinine Urine Total Protein Fluid Total Protein Vancomycin Trough Rheumatoid Factor Complement C4 Miscellaneous Test Crossmatch 11/04/16 11/05/16 11/05/16 22:57 03:10 05:10 WBC RBC Hgb Hct MCV MCH MCHC RDW Plt Count Lymph % (Auto) [place] % (Auto) Lymph # [place] # Baso # Seg Neutrophils % Seg Neuts % (Manual) Lymphocytes % (Manual) Monocytes % (Manual) Eosinophils % (Manual) Basophils % (Manual) Nucleated RBC % Seg Neutrophils # Seg Neutrophils # Man Lymphocytes # (Manual) Monocytes # (Manual) Eosinophils # (Manual) Basophils # (Manual) PT INR Fibrinogen dRVVT Confirm Interp Factor V Activity POC ABG pH POC ABG pCO2 POC ABG pO2 ABG pO2 ABG HCO3 ABG Base Excess ABG Hemoglobin Oxyhemoglobin Sodium 136 L Potassium Chloride 97.2 L Carbon Dioxide BUN 32 H Creatinine 1.3 H Glucose 123 H POC Glucose 125 H 108 H Lactic Acid Calcium 7.8 L Phosphorus Magnesium Direct Bilirubin AST ALT Alkaline Phosphatase Lactate Dehydrogenase Troponin T C-Reactive Protein Total Protein Albumin Prealbumin Triglycerides Cholesterol LDL Cholesterol Direct HDL Cholesterol Urine pH Urine WBC (Auto) Urine Creatinine Urine Total Protein Fluid Total Protein Vancomycin Trough Rheumatoid Factor Complement C4 Miscellaneous Test Crossmatch 11/05/16 11/05/16 11/05/16 12:23 13:09 13:25 WBC RBC Hgb Hct MCV MCH MCHC RDW Plt Count Lymph % (Auto) [place] % (Auto) Lymph # [place] # Baso # Seg Neutrophils % Seg Neuts % (Manual) Lymphocytes % (Manual) Monocytes % (Manual) Eosinophils % (Manual) Basophils % (Manual) Nucleated RBC % Seg Neutrophils # Seg Neutrophils # Man Lymphocytes # (Manual) Monocytes # (Manual) Eosinophils # (Manual) Basophils # (Manual) PT INR Fibrinogen dRVVT Confirm Interp Factor V Activity POC ABG pH POC ABG pCO2 POC ABG pO2 ABG pO2 ABG HCO3 ABG Base Excess ABG Hemoglobin Oxyhemoglobin Sodium Potassium Chloride Carbon Dioxide BUN Creatinine Glucose POC Glucose 124 H Lactic Acid Calcium Phosphorus Magnesium Direct Bilirubin AST ALT Alkaline Phosphatase Lactate Dehydrogenase Troponin T C-Reactive Protein 11.40 H Total Protein Albumin Prealbumin Triglycerides Cholesterol LDL Cholesterol Direct HDL Cholesterol Urine pH 9.0 H Urine WBC (Auto) Urine Creatinine Urine Total Protein Fluid Total Protein Vancomycin Trough Rheumatoid Factor Complement C4 Miscellaneous Test Crossmatch 11/05/16 11/05/16 11/05/16 13:25 17:54 23:42 WBC RBC Hgb Hct MCV MCH MCHC RDW Plt Count Lymph % (Auto) [place] % (Auto) Lymph # [place] # Baso # Seg Neutrophils % Seg Neuts % (Manual) Lymphocytes % (Manual) Monocytes % (Manual) Eosinophils % (Manual) Basophils % (Manual) Nucleated RBC % Seg Neutrophils # Seg Neutrophils # Man Lymphocytes # (Manual) Monocytes # (Manual) Eosinophils # (Manual) Basophils # (Manual) PT INR Fibrinogen dRVVT Confirm Interp Factor V Activity POC ABG pH POC ABG pCO2 POC ABG pO2 ABG pO2 ABG HCO3 ABG Base Excess ABG Hemoglobin Oxyhemoglobin Sodium Potassium Chloride Carbon Dioxide BUN Creatinine Glucose POC Glucose 114 H 134 H Lactic Acid Calcium Phosphorus Magnesium Direct Bilirubin AST ALT Alkaline Phosphatase Lactate Dehydrogenase Troponin T C-Reactive Protein Total Protein Albumin Prealbumin Triglycerides Cholesterol LDL Cholesterol Direct HDL Cholesterol Urine pH Urine WBC (Auto) Urine Creatinine Urine Total Protein Fluid Total Protein Vancomycin Trough Rheumatoid Factor Complement C4 Miscellaneous Test Flexitest 1 H Crossmatch 11/06/16 11/06/16 11/06/16 04:56 06:25 06:25 WBC RBC 2.50 L Hgb 7.3 L Hct 22.5 L MCV MCH MCHC RDW 16.9 H Plt Count Lymph % (Auto) [place] % (Auto) 10.5 H Lymph # [place] # 1.1 H Baso # Seg Neutrophils % Seg Neuts % (Manual) Lymphocytes % (Manual) Monocytes % (Manual) Eosinophils % (Manual) Basophils % (Manual) Nucleated RBC % Seg Neutrophils # Seg Neutrophils # Man Lymphocytes # (Manual) Monocytes # (Manual) Eosinophils # (Manual) Basophils # (Manual) PT INR Fibrinogen dRVVT Confirm Interp Factor V Activity POC ABG pH POC ABG pCO2 POC ABG pO2 ABG pO2 ABG HCO3 ABG Base Excess ABG Hemoglobin Oxyhemoglobin Sodium Potassium 5.1 H Chloride 95.9 L Carbon Dioxide BUN 52 H Creatinine 1.8 H Glucose 117 H POC Glucose 120 H Lactic Acid Calcium Phosphorus Magnesium Direct Bilirubin AST 103 H ALT 77 H Alkaline Phosphatase 285 H Lactate Dehydrogenase Troponin T C-Reactive Protein Total Protein 6.2 L Albumin 1.8 L Prealbumin 0.180 L Triglycerides Cholesterol LDL Cholesterol Direct HDL Cholesterol Urine pH Urine WBC (Auto) Urine Creatinine Urine Total Protein Fluid Total Protein Vancomycin Trough Rheumatoid Factor Complement C4 Miscellaneous Test Crossmatch 11/06/16 11/06/16 11/06/16 11:56 17:14 23:52 WBC RBC Hgb Hct MCV MCH MCHC RDW Plt Count Lymph % (Auto) [place] % (Auto) Lymph # [place] # Baso # Seg Neutrophils % Seg Neuts % (Manual) Lymphocytes % (Manual) Monocytes % (Manual) Eosinophils % (Manual) Basophils % (Manual) Nucleated RBC % Seg Neutrophils # Seg Neutrophils # Man Lymphocytes # (Manual) Monocytes # (Manual) Eosinophils # (Manual) Basophils # (Manual) PT INR Fibrinogen dRVVT Confirm Interp Factor V Activity POC ABG pH POC ABG pCO2 POC ABG pO2 ABG pO2 ABG HCO3 ABG Base Excess ABG Hemoglobin Oxyhemoglobin Sodium Potassium Chloride Carbon Dioxide BUN Creatinine Glucose POC Glucose 141 H 125 H 130 H Lactic Acid Calcium Phosphorus Magnesium Direct Bilirubin AST ALT Alkaline Phosphatase Lactate Dehydrogenase Troponin T C-Reactive Protein Total Protein Albumin Prealbumin Triglycerides Cholesterol LDL Cholesterol Direct HDL Cholesterol Urine pH Urine WBC (Auto) Urine Creatinine Urine Total Protein Fluid Total Protein Vancomycin Trough Rheumatoid Factor Complement C4 Miscellaneous Test Crossmatch 11/07/16 11/07/16 11/07/16 06:30 06:30 09:37 WBC RBC 2.18 L Hgb 6.3 L Hct 19.7 L* MCV MCH MCHC RDW 16.8 H Plt Count Lymph % (Auto) [place] % (Auto) 10.0 H Lymph # [place] # 1.0 H Baso # Seg Neutrophils % Seg Neuts % (Manual) Lymphocytes % (Manual) Monocytes % (Manual) Eosinophils % (Manual) Basophils % (Manual) Nucleated RBC % Seg Neutrophils # Seg Neutrophils # Man Lymphocytes # (Manual) Monocytes # (Manual) Eosinophils # (Manual) Basophils # (Manual) PT INR Fibrinogen dRVVT Confirm Interp Factor V Activity POC ABG pH POC ABG pCO2 POC ABG pO2 ABG pO2 ABG HCO3 ABG Base Excess ABG Hemoglobin Oxyhemoglobin Sodium 135 L Potassium Chloride 95.6 L Carbon Dioxide BUN 70 H Creatinine 2.0 H Glucose 126 H POC Glucose Lactic Acid Calcium Phosphorus Magnesium Direct Bilirubin AST ALT Alkaline Phosphatase Lactate Dehydrogenase Troponin T C-Reactive Protein Total Protein Albumin Prealbumin Triglycerides Cholesterol LDL Cholesterol Direct HDL Cholesterol Urine pH Urine WBC (Auto) Urine Creatinine Urine Total Protein Fluid Total Protein Vancomycin Trough Rheumatoid Factor Complement C4 Miscellaneous Test Crossmatch See Detail 11/07/16 11/07/16 11/07/16 12:52 18:51 21:26 WBC RBC Hgb Hct MCV MCH MCHC RDW Plt Count Lymph % (Auto) [place] % (Auto) Lymph # [place] # Baso # Seg Neutrophils % Seg Neuts % (Manual) Lymphocytes % (Manual) Monocytes % (Manual) Eosinophils % (Manual) Basophils % (Manual) Nucleated RBC % Seg Neutrophils # Seg Neutrophils # Man Lymphocytes # (Manual) Monocytes # (Manual) Eosinophils # (Manual) Basophils # (Manual) PT INR Fibrinogen dRVVT Confirm Interp Factor V Activity POC ABG pH 7.523 H POC ABG pCO2 34.6 L POC ABG pO2 53 L ABG pO2 ABG HCO3 ABG Base Excess ABG Hemoglobin Oxyhemoglobin Sodium Potassium Chloride Carbon Dioxide BUN Creatinine Glucose POC Glucose 142 H 155 H Lactic Acid Calcium Phosphorus Magnesium Direct Bilirubin AST ALT Alkaline Phosphatase Lactate Dehydrogenase Troponin T C-Reactive Protein Total Protein Albumin Prealbumin Triglycerides Cholesterol LDL Cholesterol Direct HDL Cholesterol Urine pH Urine WBC (Auto) Urine Creatinine Urine Total Protein Fluid Total Protein Vancomycin Trough Rheumatoid Factor Complement C4 Miscellaneous Test Crossmatch 11/07/16 11/08/16 11/08/16 21:34 13:03 23:37 WBC RBC 2.63 L Hgb 7.7 L Hct 22.7 L MCV MCH MCHC RDW 17.0 H Plt Count Lymph % (Auto) [place] % (Auto) Lymph # [place] # Baso # Seg Neutrophils % Seg Neuts % (Manual) Lymphocytes % (Manual) Monocytes % (Manual) Eosinophils % (Manual) Basophils % (Manual) Nucleated RBC % Seg Neutrophils # Seg Neutrophils # Man Lymphocytes # (Manual) Monocytes # (Manual) Eosinophils # (Manual) Basophils # (Manual) PT INR Fibrinogen dRVVT Confirm Interp Factor V Activity POC ABG pH 7.478 H POC ABG pCO2 34.0 L POC ABG pO2 50 L ABG pO2 ABG HCO3 ABG Base Excess ABG Hemoglobin Oxyhemoglobin Sodium Potassium Chloride Carbon Dioxide BUN Creatinine Glucose POC Glucose 113 H Lactic Acid Calcium Phosphorus Magnesium Direct Bilirubin AST ALT Alkaline Phosphatase Lactate Dehydrogenase Troponin T C-Reactive Protein Total Protein Albumin Prealbumin Triglycerides Cholesterol LDL Cholesterol Direct HDL Cholesterol Urine pH Urine WBC (Auto) Urine Creatinine Urine Total Protein Fluid Total Protein Vancomycin Trough Rheumatoid Factor Complement C4 Miscellaneous Test Crossmatch 11/09/16 11/09/16 11/09/16 04:35 10:15 18:21 WBC RBC 2.68 L Hgb 7.8 L Hct 23.3 L MCV MCH MCHC RDW 17.0 H Plt Count Lymph % (Auto) [place] % (Auto) 12.1 H Lymph # [place] # 1.1 H Baso # Seg Neutrophils % Seg Neuts % (Manual) Lymphocytes % (Manual) Monocytes % (Manual) Eosinophils % (Manual) Basophils % (Manual) Nucleated RBC % Seg Neutrophils # Seg Neutrophils # Man Lymphocytes # (Manual) Monocytes # (Manual) Eosinophils # (Manual) Basophils # (Manual) PT INR Fibrinogen dRVVT Confirm Interp Factor V Activity POC ABG pH POC ABG pCO2 POC ABG pO2 ABG pO2 ABG HCO3 ABG Base Excess ABG Hemoglobin Oxyhemoglobin Sodium Potassium Chloride Carbon Dioxide BUN 51 H Creatinine 1.8 H Glucose POC Glucose 60 L Lactic Acid Calcium 8.3 L Phosphorus Magnesium Direct Bilirubin AST ALT Alkaline Phosphatase Lactate Dehydrogenase Troponin T C-Reactive Protein Total Protein Albumin Prealbumin Triglycerides Cholesterol LDL Cholesterol Direct HDL Cholesterol Urine pH Urine WBC (Auto) Urine Creatinine Urine Total Protein Fluid Total Protein Vancomycin Trough Rheumatoid Factor Complement C4 Miscellaneous Test Crossmatch 11/09/16 11/10/16 11/10/16 18:55 07:00 11:51 WBC RBC Hgb Hct MCV MCH MCHC RDW Plt Count Lymph % (Auto) [place]nn % (Auto) Lymph # [place]nn # Baso # Seg Neutrophils % Seg Neuts % (Manual) Lymphocytes % (Manual) Monocytes % (Manual) Eosinophils % (Manual) Basophils % (Manual) Nucleated RBC % Seg Neutrophils # Seg Neutrophils # Man Lymphocytes # (Manual) Monocytes # (Manual) Eosinophils # (Manual) Basophils # (Manual) PT INR Fibrinogen dRVVT Confirm Interp Factor V Activity POC ABG pH POC ABG pCO2 POC ABG pO2 ABG pO2 ABG HCO3 ABG Base Excess ABG Hemoglobin Oxyhemoglobin Sodium Potassium 3.0 L D Chloride 97.4 L Carbon Dioxide BUN 28 H Creatinine 1.3 H Glucose POC Glucose 68 L 120 H Lactic Acid Calcium 7.8 L Phosphorus Magnesium Direct Bilirubin AST ALT Alkaline Phosphatase Lactate Dehydrogenase Troponin T C-Reactive Protein Total Protein Albumin Prealbumin Triglycerides Cholesterol LDL Cholesterol Direct HDL Cholesterol Urine pH Urine WBC (Auto) Urine Creatinine Urine Total Protein Fluid Total Protein Vancomycin Trough Rheumatoid Factor Complement C4 Miscellaneous Test Crossmatch 11/10/16 11/11/1611/11/17 14:20 06:59 06:59 WBC RBC 2.81 L Hgb 8.1 L Hct 24.4 L MCV MCH MCHC RDW 16.4 H Plt Count Lymph % (Auto) [place]nn % (Auto) 10.8 H Lymph # [place]nn # 1.0 H Baso # Seg Neutrophils % Seg Neuts % (Manual) Lymphocytes % (Manual) Monocytes % (Manual) Eosinophils % (Manual) Basophils % (Manual) Nucleated RBC % Seg Neutrophils # Seg Neutrophils # Man Lymphocytes # (Manual) Monocytes # (Manual) Eosinophils # (Manual) Basophils # (Manual) PT INR Fibrinogen dRVVT Confirm Interp Factor V Activity POC ABG pH POC ABG pCO2 POC ABG pO2 ABG pO2 ABG HCO3 ABG Base Excess ABG Hemoglobin Oxyhemoglobin Sodium Potassium Chloride Carbon Dioxide BUN Creatinine Glucose POC Glucose Lactic Acid Calcium Phosphorus Magnesium Direct Bilirubin AST ALT Alkaline Phosphatase Lactate Dehydrogenase 196 H Troponin T C-Reactive Protein Total Protein 6.1 L Albumin Prealbumin Triglycerides Cholesterol LDL Cholesterol Direct HDL Cholesterol Urine pH Urine WBC (Auto) Urine Creatinine Urine Total Protein Fluid Total Protein < 3.0 L Vancomycin Trough Rheumatoid Factor Complement C4 Miscellaneous Test Crossmatch 11/11/16 11/11/16 11/12/16 06:59 09:50 04:00 WBC RBC Hgb Hct MCV MCH MCHC RDW Plt Count Lymph % (Auto) [place]nn % (Auto) Lymph # [place] # Baso # Seg Neutrophils % Seg Neuts % (Manual) Lymphocytes % (Manual) Monocytes % (Manual) Eosinophils % (Manual) Basophils % (Manual) Nucleated RBC % Seg Neutrophils # Seg Neutrophils # Man Lymphocytes # (Manual) Monocytes # (Manual) Eosinophils # (Manual) Basophils # (Manual) PT INR 1.18 H Fibrinogen dRVVT Confirm Interp Factor V Activity POC ABG pH POC ABG pCO2 POC ABG pO2 ABG pO2 ABG HCO3 ABG Base Excess ABG Hemoglobin Oxyhemoglobin Sodium 136 L 133 L Potassium Chloride 96.1 L 94.8 L Carbon Dioxide 21 L BUN 37 H 42 H Creatinine 1.8 H 2.0 H Glucose POC Glucose Lactic Acid Calcium Phosphorus Magnesium Direct Bilirubin AST ALT Alkaline Phosphatase Lactate Dehydrogenase Troponin T C-Reactive Protein Total Protein Albumin Prealbumin Triglycerides Cholesterol LDL Cholesterol Direct HDL Cholesterol Urine pH Urine WBC (Auto) Urine Creatinine Urine Total Protein Fluid Total Protein Vancomycin Trough Rheumatoid Factor Complement C4 Miscellaneous Test Crossmatch 11/12/16 11/12/16 11/13/16 04:00 23:55 05:53 WBC RBC Hgb 8.9 L Hct 27.2 L MCV MCH MCHC RDW Plt Count Lymph % (Auto) [place]nn % (Auto) Lymph # [place] # Baso # Seg Neutrophils % Seg Neuts % (Manual) Lymphocytes % (Manual) Monocytes % (Manual) Eosinophils % (Manual) Basophils % (Manual) Nucleated RBC % Seg Neutrophils # Seg Neutrophils # Man Lymphocytes # (Manual) Monocytes # (Manual) Eosinophils # (Manual) Basophils # (Manual) PT INR Fibrinogen dRVVT Confirm Interp Factor V Activity POC ABG pH POC ABG pCO2 POC ABG pO2 ABG pO2 ABG HCO3 ABG Base Excess ABG Hemoglobin Oxyhemoglobin Sodium Potassium Chloride Carbon Dioxide BUN Creatinine Glucose POC Glucose 132 H 120 H Lactic Acid Calcium Phosphorus Magnesium Direct Bilirubin AST ALT Alkaline Phosphatase Lactate Dehydrogenase Troponin T C-Reactive Protein Total Protein Albumin Prealbumin Triglycerides Cholesterol LDL Cholesterol Direct HDL Cholesterol Urine pH Urine WBC (Auto) Urine Creatinine Urine Total Protein Fluid Total Protein Vancomycin Trough Rheumatoid Factor Complement C4 Miscellaneous Test Crossmatch 11/13/16 11/13/16 11/13/16 11:43 17:09 23:41 WBC RBC Hgb Hct MCV MCH MCHC RDW Plt Count Lymph % (Auto) [place] % (Auto) Lymph # [place] # Baso # Seg Neutrophils % Seg Neuts % (Manual) Lymphocytes % (Manual) Monocytes % (Manual) Eosinophils % (Manual) Basophils % (Manual) Nucleated RBC % Seg Neutrophils # Seg Neutrophils # Man Lymphocytes # (Manual) Monocytes # (Manual) Eosinophils # (Manual) Basophils # (Manual) PT INR Fibrinogen dRVVT Confirm Interp Factor V Activity POC ABG pH POC ABG pCO2 POC ABG pO2 ABG pO2 ABG HCO3 ABG Base Excess ABG Hemoglobin Oxyhemoglobin Sodium Potassium Chloride Carbon Dioxide BUN Creatinine Glucose POC Glucose 114 H 113 H 108 H Lactic Acid Calcium Phosphorus Magnesium Direct Bilirubin AST ALT Alkaline Phosphatase Lactate Dehydrogenase Troponin T C-Reactive Protein Total Protein Albumin Prealbumin Triglycerides Cholesterol LDL Cholesterol Direct HDL Cholesterol Urine pH Urine WBC (Auto) Urine Creatinine Urine Total Protein Fluid Total Protein Vancomycin Trough Rheumatoid Factor Complement C4 Miscellaneous Test Crossmatch 11/13/16 11/15/16 11/15/16 Unknown 00:37 03:30 WBC 11.2 H RBC 2.72 L Hgb 7.6 L Hct 23.4 L MCV MCH MCHC RDW 16.5 H Plt Count Lymph % (Auto) [place] % (Auto) Lymph # [place] # Baso # Seg Neutrophils % Seg Neuts % (Manual) Lymphocytes % (Manual) Monocytes % (Manual) Eosinophils % (Manual) Basophils % (Manual) Nucleated RBC % Seg Neutrophils # Seg Neutrophils # Man Lymphocytes # (Manual) Monocytes # (Manual) Eosinophils # (Manual) Basophils # (Manual) PT INR Fibrinogen dRVVT Confirm Interp Factor V Activity POC ABG pH POC ABG pCO2 POC ABG pO2 ABG pO2 ABG HCO3 ABG Base Excess ABG Hemoglobin Oxyhemoglobin Sodium 135 L Potassium Chloride 95.2 L Carbon Dioxide BUN 52 H Creatinine 2.2 H Glucose POC Glucose 108 H Lactic Acid Calcium Phosphorus Magnesium Direct Bilirubin AST ALT Alkaline Phosphatase Lactate Dehydrogenase Troponin T C-Reactive Protein Total Protein Albumin Prealbumin Triglycerides Cholesterol LDL Cholesterol Direct HDL Cholesterol Urine pH Urine WBC (Auto) Urine Creatinine Urine Total Protein Fluid Total Protein Vancomycin Trough Rheumatoid Factor Complement C4 Miscellaneous Test Crossmatch 11/15/16 11/15/16 11/15/16 03:30 05:04 11:50 WBC RBC Hgb Hct MCV MCH MCHC RDW Plt Count Lymph % (Auto) [place]nn % (Auto) Lymph # [place] # Baso # Seg Neutrophils % Seg Neuts % (Manual) Lymphocytes % (Manual) Monocytes % (Manual) Eosinophils % (Manual) Basophils % (Manual) Nucleated RBC % Seg Neutrophils # Seg Neutrophils # Man Lymphocytes # (Manual) Monocytes # (Manual) Eosinophils # (Manual) Basophils # (Manual) PT INR Fibrinogen dRVVT Confirm Interp Factor V Activity POC ABG pH POC ABG pCO2 POC ABG pO2 ABG pO2 ABG HCO3 ABG Base Excess ABG Hemoglobin Oxyhemoglobin Sodium Potassium 3.4 L Chloride Carbon Dioxide BUN 25 H Creatinine 1.5 H Glucose 103 H POC Glucose 121 H 144 H Lactic Acid Calcium Phosphorus Magnesium Direct Bilirubin AST ALT Alkaline Phosphatase Lactate Dehydrogenase Troponin T C-Reactive Protein Total Protein Albumin Prealbumin Triglycerides Cholesterol LDL Cholesterol Direct HDL Cholesterol Urine pH Urine WBC (Auto) Urine Creatinine Urine Total Protein Fluid Total Protein Vancomycin Trough Rheumatoid Factor Complement C4 Miscellaneous Test Crossmatch 11/15/16 11/15/16 11/16/16 21:28 23:20 11:44 WBC RBC Hgb Hct MCV MCH MCHC RDW Plt Count Lymph % (Auto) [place]nn % (Auto) Lymph # [place] # Baso # Seg Neutrophils % Seg Neuts % (Manual) Lymphocytes % (Manual) Monocytes % (Manual) Eosinophils % (Manual) Basophils % (Manual) Nucleated RBC % Seg Neutrophils # Seg Neutrophils # Man Lymphocytes # (Manual) Monocytes # (Manual) Eosinophils # (Manual) Basophils # (Manual) PT INR Fibrinogen dRVVT Confirm Interp Factor V Activity POC ABG pH 7.462 H POC ABG pCO2 POC ABG pO2 71 L ABG pO2 ABG HCO3 ABG Base Excess ABG Hemoglobin Oxyhemoglobin Sodium Potassium Chloride Carbon Dioxide BUN Creatinine Glucose POC Glucose 116 H 133 H Lactic Acid Calcium Phosphorus Magnesium Direct Bilirubin AST ALT Alkaline Phosphatase Lactate Dehydrogenase Troponin T C-Reactive Protein Total Protein Albumin Prealbumin Triglycerides Cholesterol LDL Cholesterol Direct HDL Cholesterol Urine pH Urine WBC (Auto) Urine Creatinine Urine Total Protein Fluid Total Protein Vancomycin Trough Rheumatoid Factor Complement C4 Miscellaneous Test Crossmatch 11/16/16 11/16/16 11/16/16 12:20 17:05 23:35 WBC 11.7 H RBC 2.73 L Hgb 7.6 L Hct 23.7 L MCV MCH MCHC RDW 16.6 H Plt Count Lymph % (Auto) [place] % (Auto) Lymph # [place] # Baso # Seg Neutrophils % Seg Neuts % (Manual) Lymphocytes % (Manual) Monocytes % (Manual) Eosinophils % (Manual) Basophils % (Manual) Nucleated RBC % Seg Neutrophils # Seg Neutrophils # Man Lymphocytes # (Manual) Monocytes # (Manual) Eosinophils # (Manual) Basophils # (Manual) PT INR Fibrinogen dRVVT Confirm Interp Factor V Activity POC ABG pH POC ABG pCO2 POC ABG pO2 ABG pO2 ABG HCO3 ABG Base Excess ABG Hemoglobin Oxyhemoglobin Sodium Potassium Chloride Carbon Dioxide BUN Creatinine Glucose POC Glucose 154 H 125 H Lactic Acid Calcium Phosphorus Magnesium Direct Bilirubin AST ALT Alkaline Phosphatase Lactate Dehydrogenase Troponin T C-Reactive Protein Total Protein Albumin Prealbumin Triglycerides Cholesterol LDL Cholesterol Direct HDL Cholesterol Urine pH Urine WBC (Auto) Urine Creatinine Urine Total Protein Fluid Total Protein Vancomycin Trough Rheumatoid Factor Complement C4 Miscellaneous Test Crossmatch 11/17/16 11/17/16 11/17/16 03:20 03:20 03:20 WBC RBC 2.55 L Hgb 7.3 L Hct 21.9 L MCV MCH MCHC RDW 16.6 H Plt Count Lymph % (Auto) [place] % (Auto) 11.5 H Lymph # [place] # 1.1 H Baso # Seg Neutrophils % Seg Neuts % (Manual) Lymphocytes % (Manual) Monocytes % (Manual) Eosinophils % (Manual) Basophils % (Manual) Nucleated RBC % Seg Neutrophils # Seg Neutrophils # Man Lymphocytes # (Manual) Monocytes # (Manual) Eosinophils # (Manual) Basophils # (Manual) PT 16.8 H INR 1.37 H Fibrinogen dRVVT Confirm Interp Factor V Activity POC ABG pH POC ABG pCO2 POC ABG pO2 ABG pO2 ABG HCO3 ABG Base Excess ABG Hemoglobin Oxyhemoglobin Sodium Potassium 3.5 L Chloride Carbon Dioxide BUN 21 H Creatinine Glucose POC Glucose Lactic Acid Calcium 7.9 L Phosphorus Magnesium Direct Bilirubin AST ALT Alkaline Phosphatase Lactate Dehydrogenase Troponin T C-Reactive Protein Total Protein Albumin Prealbumin Triglycerides Cholesterol LDL Cholesterol Direct HDL Cholesterol Urine pH Urine WBC (Auto) Urine Creatinine Urine Total Protein Fluid Total Protein Vancomycin Trough Rheumatoid Factor Complement C4 Miscellaneous Test Crossmatch 11/17/16 11/17/16 11/17/16 06:34 11:21 21:22 WBC RBC Hgb Hct MCV MCH MCHC RDW Plt Count Lymph % (Auto) [place] % (Auto) Lymph # [place] # Baso # Seg Neutrophils % Seg Neuts % (Manual) Lymphocytes % (Manual) Monocytes % (Manual) Eosinophils % (Manual) Basophils % (Manual) Nucleated RBC % Seg Neutrophils # Seg Neutrophils # Man Lymphocytes # (Manual) Monocytes # (Manual) Eosinophils # (Manual) Basophils # (Manual) PT INR Fibrinogen dRVVT Confirm Interp Factor V Activity POC ABG pH 7.467 H POC ABG pCO2 POC ABG pO2 73 L ABG pO2 ABG HCO3 ABG Base Excess ABG Hemoglobin Oxyhemoglobin Sodium Potassium Chloride Carbon Dioxide BUN Creatinine Glucose POC Glucose 121 H 119 H Lactic Acid Calcium Phosphorus Magnesium Direct Bilirubin AST ALT Alkaline Phosphatase Lactate Dehydrogenase Troponin T C-Reactive Protein Total Protein Albumin Prealbumin Triglycerides Cholesterol LDL Cholesterol Direct HDL Cholesterol Urine pH Urine WBC (Auto) Urine Creatinine Urine Total Protein Fluid Total Protein Vancomycin Trough Rheumatoid Factor Complement C4 Miscellaneous Test Crossmatch 11/18/16 11/18/16 11/19/16 12:16 17:19 00:00 WBC RBC Hgb Hct MCV MCH MCHC RDW Plt Count Lymph % (Auto) [place]nn % (Auto) Lymph # [place] # Baso # Seg Neutrophils % Seg Neuts % (Manual) Lymphocytes % (Manual) Monocytes % (Manual) Eosinophils % (Manual) Basophils % (Manual) Nucleated RBC % Seg Neutrophils # Seg Neutrophils # Man Lymphocytes # (Manual) Monocytes # (Manual) Eosinophils # (Manual) Basophils # (Manual) PT INR Fibrinogen dRVVT Confirm Interp Factor V Activity POC ABG pH POC ABG pCO2 POC ABG pO2 ABG pO2 ABG HCO3 ABG Base Excess ABG Hemoglobin Oxyhemoglobin Sodium Potassium Chloride Carbon Dioxide BUN Creatinine Glucose POC Glucose 124 H 162 H 139 H Lactic Acid Calcium Phosphorus Magnesium Direct Bilirubin AST ALT Alkaline Phosphatase Lactate Dehydrogenase Troponin T C-Reactive Protein Total Protein Albumin Prealbumin Triglycerides Cholesterol LDL Cholesterol Direct HDL Cholesterol Urine pH Urine WBC (Auto) Urine Creatinine Urine Total Protein Fluid Total Protein Vancomycin Trough Rheumatoid Factor Complement C4 Miscellaneous Test Crossmatch 11/19/16 11/19/16 11/20/16 05:00 12:43 00:40 WBC RBC Hgb Hct MCV MCH MCHC RDW Plt Count Lymph % (Auto) [place] % (Auto) Lymph # [place] # Baso # Seg Neutrophils % Seg Neuts % (Manual) Lymphocytes % (Manual) Monocytes % (Manual) Eosinophils % (Manual) Basophils % (Manual) Nucleated RBC % Seg Neutrophils # Seg Neutrophils # Man Lymphocytes # (Manual) Monocytes # (Manual) Eosinophils # (Manual) Basophils # (Manual) PT INR Fibrinogen dRVVT Confirm Interp Factor V Activity POC ABG pH POC ABG pCO2 POC ABG pO2 ABG pO2 ABG HCO3 ABG Base Excess ABG Hemoglobin Oxyhemoglobin Sodium Potassium Chloride Carbon Dioxide BUN Creatinine Glucose POC Glucose 110 H 125 H 136 H Lactic Acid Calcium Phosphorus Magnesium Direct Bilirubin AST ALT Alkaline Phosphatase Lactate Dehydrogenase Troponin T C-Reactive Protein Total Protein Albumin Prealbumin Triglycerides Cholesterol LDL Cholesterol Direct HDL Cholesterol Urine pH Urine WBC (Auto) Urine Creatinine Urine Total Protein Fluid Total Protein Vancomycin Trough Rheumatoid Factor Complement C4 Miscellaneous Test Crossmatch 11/20/16 11/20/16 11/20/16 05:00 05:00 05:51 WBC 13.1 H RBC 2.74 L Hgb 7.7 L Hct 23.6 L MCV MCH MCHC RDW 16.9 H Plt Count Lymph % (Auto) [place] % (Auto) 10.8 H Lymph # [place] # 1.4 H Baso # Seg Neutrophils % Seg Neuts % (Manual) Lymphocytes % (Manual) Monocytes % (Manual) Eosinophils % (Manual) Basophils % (Manual) Nucleated RBC % Seg Neutrophils # 7.9 H Seg Neutrophils # Man Lymphocytes # (Manual) Monocytes # (Manual) Eosinophils # (Manual) Basophils # (Manual) PT INR Fibrinogen dRVVT Confirm Interp Factor V Activity POC ABG pH POC ABG pCO2 POC ABG pO2 ABG pO2 ABG HCO3 ABG Base Excess ABG Hemoglobin Oxyhemoglobin Sodium Potassium Chloride Carbon Dioxide BUN 31 H Creatinine 1.8 H Glucose 129 H POC Glucose 133 H Lactic Acid Calcium Phosphorus Magnesium Direct Bilirubin AST ALT Alkaline Phosphatase Lactate Dehydrogenase Troponin T C-Reactive Protein Total Protein Albumin Prealbumin Triglycerides Cholesterol LDL Cholesterol Direct HDL Cholesterol Urine pH Urine WBC (Auto) Urine Creatinine Urine Total Protein Fluid Total Protein Vancomycin Trough Rheumatoid Factor Complement C4 Miscellaneous Test Crossmatch 11/20/16 11/20/16 11/21/16 12:40 18:10 01:20 WBC RBC Hgb Hct MCV MCH MCHC RDW Plt Count Lymph % (Auto) [place] % (Auto) Lymph # [place] # Baso # Seg Neutrophils % Seg Neuts % (Manual) Lymphocytes % (Manual) Monocytes % (Manual) Eosinophils % (Manual) Basophils % (Manual) Nucleated RBC % Seg Neutrophils # Seg Neutrophils # Man Lymphocytes # (Manual) Monocytes # (Manual) Eosinophils # (Manual) Basophils # (Manual) PT INR Fibrinogen dRVVT Confirm Interp Factor V Activity POC ABG pH POC ABG pCO2 POC ABG pO2 ABG pO2 ABG HCO3 ABG Base Excess ABG Hemoglobin Oxyhemoglobin Sodium Potassium Chloride Carbon Dioxide BUN Creatinine Glucose POC Glucose 134 H 138 H 136 H Lactic Acid Calcium Phosphorus Magnesium Direct Bilirubin AST ALT Alkaline Phosphatase Lactate Dehydrogenase Troponin T C-Reactive Protein Total Protein Albumin Prealbumin Triglycerides Cholesterol LDL Cholesterol Direct HDL Cholesterol Urine pH Urine WBC (Auto) Urine Creatinine Urine Total Protein Fluid Total Protein Vancomycin Trough Rheumatoid Factor Complement C4 Miscellaneous Test Crossmatch 11/21/16 11/21/16 11/21/16 07:04 07:45 07:45 WBC 22.0 H RBC 2.91 L Hgb 8.2 L Hct 25.4 L MCV MCH MCHC RDW 17.1 H Plt Count Lymph % (Auto) [place] % (Auto) Lymph # [place] # Baso # Seg Neutrophils % Seg Neuts % (Manual) Lymphocytes % (Manual) 8.0 L Monocytes % (Manual) Eosinophils % (Manual) Basophils % (Manual) Nucleated RBC % Seg Neutrophils # Seg Neutrophils # Man 14.7 H Lymphocytes # (Manual) Monocytes # (Manual) 1.1 H Eosinophils # (Manual) Basophils # (Manual) PT INR Fibrinogen dRVVT Confirm Interp Factor V Activity POC ABG pH POC ABG pCO2 POC ABG pO2 ABG pO2 ABG HCO3 ABG Base Excess ABG Hemoglobin Oxyhemoglobin Sodium Potassium Chloride Carbon Dioxide BUN 42 H Creatinine 2.0 H Glucose POC Glucose 108 H Lactic Acid Calcium Phosphorus Magnesium Direct Bilirubin AST ALT Alkaline Phosphatase Lactate Dehydrogenase Troponin T C-Reactive Protein Total Protein Albumin Prealbumin Triglycerides Cholesterol LDL Cholesterol Direct HDL Cholesterol Urine pH Urine WBC (Auto) Urine Creatinine Urine Total Protein Fluid Total Protein Vancomycin Trough Rheumatoid Factor Complement C4 Miscellaneous Test Crossmatch 11/21/16 11/21/16 11/21/16 08:38 10:09 11:20 WBC RBC Hgb Hct MCV MCH MCHC RDW Plt Count Lymph % (Auto) [place] % (Auto) Lymph # [place] # Baso # Seg Neutrophils % Seg Neuts % (Manual) Lymphocytes % (Manual) Monocytes % (Manual) Eosinophils % (Manual) Basophils % (Manual) Nucleated RBC % Seg Neutrophils # Seg Neutrophils # Man Lymphocytes # (Manual) Monocytes # (Manual) Eosinophils # (Manual) Basophils # (Manual) PT INR Fibrinogen dRVVT Confirm Interp Factor V Activity POC ABG pH 7.346 L POC ABG pCO2 34.4 L POC ABG pO2 314 H ABG pO2 ABG HCO3 ABG Base Excess ABG Hemoglobin Oxyhemoglobin Sodium Potassium Chloride Carbon Dioxide BUN Creatinine Glucose POC Glucose 195 H 153 H Lactic Acid Calcium Phosphorus Magnesium Direct Bilirubin AST ALT Alkaline Phosphatase Lactate Dehydrogenase Troponin T C-Reactive Protein Total Protein Albumin Prealbumin Triglycerides Cholesterol LDL Cholesterol Direct HDL Cholesterol Urine pH Urine WBC (Auto) Urine Creatinine Urine Total Protein Fluid Total Protein Vancomycin Trough Rheumatoid Factor Complement C4 Miscellaneous Test Crossmatch 11/21/16 11/22/16 11/22/16 23:37 04:48 05:00 WBC 29.7 H RBC 2.73 L Hgb 7.5 L Hct 24.2 L MCV MCH 27 L MCHC RDW 17.4 H Plt Count Lymph % (Auto) [place] % (Auto) Lymph # [place] # Baso # Seg Neutrophils % Seg Neuts % (Manual) Lymphocytes % (Manual) 7.0 L Monocytes % (Manual) Eosinophils % (Manual) Basophils % (Manual) Nucleated RBC % Seg Neutrophils # Seg Neutrophils # Man 15.4 H Lymphocytes # (Manual) Monocytes # (Manual) Eosinophils # (Manual) Basophils # (Manual) PT INR Fibrinogen dRVVT Confirm Interp Factor V Activity POC ABG pH POC ABG pCO2 24.6 L POC ABG pO2 189 H ABG pO2 ABG HCO3 ABG Base Excess ABG Hemoglobin Oxyhemoglobin Sodium Potassium Chloride Carbon Dioxide BUN Creatinine Glucose POC Glucose 65 L Lactic Acid Calcium Phosphorus Magnesium Direct Bilirubin AST ALT Alkaline Phosphatase Lactate Dehydrogenase Troponin T C-Reactive Protein Total Protein Albumin Prealbumin Triglycerides Cholesterol LDL Cholesterol Direct HDL Cholesterol Urine pH Urine WBC (Auto) Urine Creatinine Urine Total Protein Fluid Total Protein Vancomycin Trough Rheumatoid Factor Complement C4 Miscellaneous Test Crossmatch 11/22/16 11/23/16 11/23/16 05:00 03:44 04:06 WBC RBC 2.52 L Hgb 7.2 L Hct 21.5 L MCV MCH MCHC RDW 17.1 H Plt Count Lymph % (Auto) [place] % (Auto) 12.4 H Lymph # [place] # 1.4 H Baso # Seg Neutrophils % Seg Neuts % (Manual) Lymphocytes % (Manual) Monocytes % (Manual) Eosinophils % (Manual) Basophils % (Manual) Nucleated RBC % Seg Neutrophils # Seg Neutrophils # Man Lymphocytes # (Manual) Monocytes # (Manual) Eosinophils # (Manual) Basophils # (Manual) PT INR Fibrinogen dRVVT Confirm Interp Factor V Activity POC ABG pH 7.493 H POC ABG pCO2 29.5 L POC ABG pO2 49 L ABG pO2 ABG HCO3 ABG Base Excess ABG Hemoglobin Oxyhemoglobin Sodium 134 L Potassium Chloride 95.9 L Carbon Dioxide 14 L D BUN 51 H Creatinine 2.6 H Glucose POC Glucose Lactic Acid Calcium Phosphorus Magnesium Direct Bilirubin AST ALT Alkaline Phosphatase Lactate Dehydrogenase Troponin T C-Reactive Protein Total Protein Albumin Prealbumin Triglycerides Cholesterol LDL Cholesterol Direct HDL Cholesterol Urine pH Urine WBC (Auto) Urine Creatinine Urine Total Protein Fluid Total Protein Vancomycin Trough Rheumatoid Factor Complement C4 Miscellaneous Test Crossmatch 11/23/16 11/23/16 11/24/16 04:06 11:29 06:39 WBC RBC Hgb Hct MCV MCH MCHC RDW Plt Count Lymph % (Auto) [place] % (Auto) Lymph # [place] # Baso # Seg Neutrophils % Seg Neuts % (Manual) Lymphocytes % (Manual) Monocytes % (Manual) Eosinophils % (Manual) Basophils % (Manual) Nucleated RBC % Seg Neutrophils # Seg Neutrophils # Man Lymphocytes # (Manual) Monocytes # (Manual) Eosinophils # (Manual) Basophils # (Manual) PT INR Fibrinogen dRVVT Confirm Interp Factor V Activity POC ABG pH POC ABG pCO2 POC ABG pO2 ABG pO2 ABG HCO3 ABG Base Excess ABG Hemoglobin Oxyhemoglobin Sodium 136 L Potassium Chloride 95.2 L Carbon Dioxide BUN 60 H Creatinine 2.9 H Glucose POC Glucose 69 L 305 H Lactic Acid Calcium Phosphorus Magnesium 1.60 L Direct Bilirubin AST ALT Alkaline Phosphatase Lactate Dehydrogenase Troponin T C-Reactive Protein Total Protein Albumin Prealbumin Triglycerides Cholesterol LDL Cholesterol Direct HDL Cholesterol Urine pH Urine WBC (Auto) Urine Creatinine Urine Total Protein Fluid Total Protein Vancomycin Trough Rheumatoid Factor Complement C4 Miscellaneous Test Crossmatch 11/24/16 11/24/16 11/24/16 06:43 08:08 08:08 WBC 11.2 H RBC 2.47 L Hgb 6.8 L Hct 20.6 L MCV MCH MCHC RDW 17.0 H Plt Count Lymph % (Auto) [place] % (Auto) 10.3 H Lymph # [place] # 1.2 H Baso # Seg Neutrophils % Seg Neuts % (Manual) Lymphocytes % (Manual) Monocytes % (Manual) Eosinophils % (Manual) Basophils % (Manual) Nucleated RBC % Seg Neutrophils # Seg Neutrophils # Man Lymphocytes # (Manual) Monocytes # (Manual) Eosinophils # (Manual) Basophils # (Manual) PT INR Fibrinogen dRVVT Confirm Interp Factor V Activity POC ABG pH POC ABG pCO2 POC ABG pO2 ABG pO2 ABG HCO3 ABG Base Excess ABG Hemoglobin Oxyhemoglobin Sodium 135 L Potassium Chloride 96.3 L Carbon Dioxide BUN 61 H Creatinine 3.1 H Glucose POC Glucose 62 L Lactic Acid Calcium 8.2 L Phosphorus Magnesium Direct Bilirubin AST ALT Alkaline Phosphatase Lactate Dehydrogenase Troponin T C-Reactive Protein Total Protein Albumin Prealbumin Triglycerides Cholesterol LDL Cholesterol Direct HDL Cholesterol Urine pH Urine WBC (Auto) Urine Creatinine Urine Total Protein Fluid Total Protein Vancomycin Trough Rheumatoid Factor Complement C4 Miscellaneous Test Crossmatch 11/24/16 11/24/16 11/24/16 08:34 11:20 12:41 WBC RBC Hgb Hct MCV MCH MCHC RDW Plt Count Lymph % (Auto) [place] % (Auto) Lymph # [place] # Baso # Seg Neutrophils % Seg Neuts % (Manual) Lymphocytes % (Manual) Monocytes % (Manual) Eosinophils % (Manual) Basophils % (Manual) Nucleated RBC % Seg Neutrophils # Seg Neutrophils # Man Lymphocytes # (Manual) Monocytes # (Manual) Eosinophils # (Manual) Basophils # (Manual) PT INR Fibrinogen dRVVT Confirm Interp Factor V Activity POC ABG pH POC ABG pCO2 POC ABG pO2 ABG pO2 ABG HCO3 ABG Base Excess ABG Hemoglobin Oxyhemoglobin Sodium Potassium Chloride Carbon Dioxide BUN Creatinine Glucose POC Glucose 108 H Lactic Acid Calcium Phosphorus Magnesium 1.60 L Direct Bilirubin AST ALT Alkaline Phosphatase Lactate Dehydrogenase Troponin T C-Reactive Protein Total Protein Albumin Prealbumin Triglycerides Cholesterol LDL Cholesterol Direct HDL Cholesterol Urine pH Urine WBC (Auto) Urine Creatinine Urine Total Protein Fluid Total Protein Vancomycin Trough Rheumatoid Factor Complement C4 Miscellaneous Test Crossmatch See Detail 11/25/16 11/25/16 11/25/16 00:03 04:42 04:42 WBC RBC 3.03 L Hgb 8.6 L Hct 25.3 L MCV MCH MCHC RDW 16.2 H Plt Count Lymph % (Auto) [place]nn % (Auto) 8.1 H Lymph # [place] # Baso # Seg Neutrophils % 71.3 H Seg Neuts % (Manual) Lymphocytes % (Manual) Monocytes % (Manual) Eosinophils % (Manual) Basophils % (Manual) Nucleated RBC % Seg Neutrophils # Seg Neutrophils # Man Lymphocytes # (Manual) Monocytes # (Manual) Eosinophils # (Manual) Basophils # (Manual) PT INR Fibrinogen dRVVT Confirm Interp Factor V Activity POC ABG pH POC ABG pCO2 POC ABG pO2 ABG pO2 ABG HCO3 ABG Base Excess ABG Hemoglobin Oxyhemoglobin Sodium Potassium Chloride Carbon Dioxide BUN 61 H Creatinine 3.0 H Glucose 102 H POC Glucose 113 H Lactic Acid Calcium 8.2 L Phosphorus Magnesium Direct Bilirubin AST ALT Alkaline Phosphatase 142 H Lactate Dehydrogenase Troponin T C-Reactive Protein Total Protein 5.7 L Albumin 1.5 L Prealbumin Triglycerides Cholesterol LDL Cholesterol Direct HDL Cholesterol Urine pH Urine WBC (Auto) Urine Creatinine Urine Total Protein Fluid Total Protein Vancomycin Trough Rheumatoid Factor Complement C4 Miscellaneous Test Crossmatch 11/25/16 11/25/16 11/25/16 05:12 11:31 14:12 WBC RBC Hgb Hct MCV MCH MCHC RDW Plt Count Lymph % (Auto) [place] % (Auto) Lymph # [place] # Baso # Seg Neutrophils % Seg Neuts % (Manual) Lymphocytes % (Manual) Monocytes % (Manual) Eosinophils % (Manual) Basophils % (Manual) Nucleated RBC % Seg Neutrophils # Seg Neutrophils # Man Lymphocytes # (Manual) Monocytes # (Manual) Eosinophils # (Manual) Basophils # (Manual) PT INR Fibrinogen dRVVT Confirm Interp Factor V Activity POC ABG pH 7.487 H POC ABG pCO2 POC ABG pO2 153 H ABG pO2 ABG HCO3 ABG Base Excess ABG Hemoglobin Oxyhemoglobin Sodium Potassium Chloride Carbon Dioxide BUN Creatinine Glucose POC Glucose 131 H 140 H Lactic Acid Calcium Phosphorus Magnesium Direct Bilirubin AST ALT Alkaline Phosphatase Lactate Dehydrogenase Troponin T C-Reactive Protein Total Protein Albumin Prealbumin Triglycerides Cholesterol LDL Cholesterol Direct HDL Cholesterol Urine pH Urine WBC (Auto) Urine Creatinine Urine Total Protein Fluid Total Protein Vancomycin Trough Rheumatoid Factor Complement C4 Miscellaneous Test Crossmatch 11/25/16 11/26/16 11/26/16 17:23 00:09 05:13 WBC RBC 2.94 L Hgb 8.4 L Hct 24.6 L MCV MCH MCHC RDW 16.4 H Plt Count Lymph % (Auto) [place] % (Auto) 12.3 H Lymph # [place] # 1.1 H Baso # Seg Neutrophils % Seg Neuts % (Manual) Lymphocytes % (Manual) Monocytes % (Manual) Eosinophils % (Manual) Basophils % (Manual) Nucleated RBC % Seg Neutrophils # Seg Neutrophils # Man Lymphocytes # (Manual) Monocytes # (Manual) Eosinophils # (Manual) Basophils # (Manual) PT INR Fibrinogen dRVVT Confirm Interp Factor V Activity POC ABG pH POC ABG pCO2 POC ABG pO2 ABG pO2 ABG HCO3 ABG Base Excess ABG Hemoglobin Oxyhemoglobin Sodium Potassium Chloride Carbon Dioxide BUN Creatinine Glucose POC Glucose 146 H 112 H Lactic Acid Calcium Phosphorus Magnesium Direct Bilirubin AST ALT Alkaline Phosphatase Lactate Dehydrogenase Troponin T C-Reactive Protein Total Protein Albumin Prealbumin Triglycerides Cholesterol LDL Cholesterol Direct HDL Cholesterol Urine pH Urine WBC (Auto) Urine Creatinine Urine Total Protein Fluid Total Protein Vancomycin Trough Rheumatoid Factor Complement C4 Miscellaneous Test Crossmatch 11/26/16 11/26/16 11/26/16 05:13 05:28 11:53 WBC RBC Hgb Hct MCV MCH MCHC RDW Plt Count Lymph % (Auto) [place] % (Auto) Lymph # [place] # Baso # Seg Neutrophils % Seg Neuts % (Manual) Lymphocytes % (Manual) Monocytes % (Manual) Eosinophils % (Manual) Basophils % (Manual) Nucleated RBC % Seg Neutrophils # Seg Neutrophils # Man Lymphocytes # (Manual) Monocytes # (Manual) Eosinophils # (Manual) Basophils # (Manual) PT INR Fibrinogen dRVVT Confirm Interp Factor V Activity POC ABG pH POC ABG pCO2 POC ABG pO2 ABG pO2 ABG HCO3 ABG Base Excess ABG Hemoglobin Oxyhemoglobin Sodium Potassium Chloride 97.8 L Carbon Dioxide BUN 37 H Creatinine 2.0 H Glucose 109 H POC Glucose 117 H 111 H Lactic Acid Calcium 7.9 L Phosphorus 1.80 L D Magnesium Direct Bilirubin AST ALT Alkaline Phosphatase Lactate Dehydrogenase Troponin T C-Reactive Protein Total Protein Albumin Prealbumin Triglycerides Cholesterol LDL Cholesterol Direct HDL Cholesterol Urine pH Urine WBC (Auto) Urine Creatinine Urine Total Protein Fluid Total Protein Vancomycin Trough Rheumatoid Factor Complement C4 Miscellaneous Test Crossmatch 11/26/16 11/27/16 11/27/16 17:14 04:50 06:02 WBC RBC Hgb Hct MCV MCH MCHC RDW Plt Count Lymph % (Auto) [place] % (Auto) Lymph # [place] # Baso # Seg Neutrophils % Seg Neuts % (Manual) Lymphocytes % (Manual) Monocytes % (Manual) Eosinophils % (Manual) Basophils % (Manual) Nucleated RBC % Seg Neutrophils # Seg Neutrophils # Man Lymphocytes # (Manual) Monocytes # (Manual) Eosinophils # (Manual) Basophils # (Manual) PT INR Fibrinogen dRVVT Confirm Interp Factor V Activity POC ABG pH POC ABG pCO2 POC ABG pO2 ABG pO2 75.2 L ABG HCO3 26.4 H ABG Base Excess ABG Hemoglobin 7.6 L Oxyhemoglobin 94.8 L Sodium Potassium Chloride Carbon Dioxide BUN 49 H Creatinine 2.3 H Glucose POC Glucose 115 H Lactic Acid Calcium Phosphorus 1.50 L Magnesium Direct Bilirubin AST ALT Alkaline Phosphatase Lactate Dehydrogenase Troponin T C-Reactive Protein Total Protein Albumin Prealbumin Triglycerides Cholesterol LDL Cholesterol Direct HDL Cholesterol Urine pH Urine WBC (Auto) Urine Creatinine Urine Total Protein Fluid Total Protein Vancomycin Trough Rheumatoid Factor Complement C4 Miscellaneous Test Crossmatch 11/27/16 11/27/16 11/27/16 06:02 11:25 17:25 WBC 11.6 H RBC 2.75 L Hgb 7.6 L Hct 23.4 L MCV MCH MCHC RDW 16.5 H Plt Count Lymph % (Auto) [place] % (Auto) Lymph # [place] # Baso # Seg Neutrophils % Seg Neuts % (Manual) Lymphocytes % (Manual) Monocytes % (Manual) Eosinophils % (Manual) Basophils % (Manual) Nucleated RBC % Seg Neutrophils # Seg Neutrophils # Man Lymphocytes # (Manual) Monocytes # (Manual) Eosinophils # (Manual) Basophils # (Manual) PT INR Fibrinogen dRVVT Confirm Interp Factor V Activity POC ABG pH POC ABG pCO2 POC ABG pO2 ABG pO2 ABG HCO3 ABG Base Excess ABG Hemoglobin Oxyhemoglobin Sodium Potassium Chloride Carbon Dioxide BUN Creatinine Glucose POC Glucose 114 H 126 H Lactic Acid Calcium Phosphorus Magnesium Direct Bilirubin AST ALT Alkaline Phosphatase Lactate Dehydrogenase Troponin T C-Reactive Protein Total Protein Albumin Prealbumin Triglycerides Cholesterol LDL Cholesterol Direct HDL Cholesterol Urine pH Urine WBC (Auto) Urine Creatinine Urine Total Protein Fluid Total Protein Vancomycin Trough Rheumatoid Factor Complement C4 Miscellaneous Test Crossmatch 11/28/16 11/28/16 11/28/16 04:45 05:33 05:44 WBC RBC Hgb Hct MCV MCH MCHC RDW Plt Count Lymph % (Auto) [place] % (Auto) Lymph # [place] # Baso # Seg Neutrophils % Seg Neuts % (Manual) Lymphocytes % (Manual) Monocytes % (Manual) Eosinophils % (Manual) Basophils % (Manual) Nucleated RBC % Seg Neutrophils # Seg Neutrophils # Man Lymphocytes # (Manual) Monocytes # (Manual) Eosinophils # (Manual) Basophils # (Manual) PT INR Fibrinogen dRVVT Confirm Interp Factor V Activity POC ABG pH POC ABG pCO2 POC ABG pO2 ABG pO2 99.3 H ABG HCO3 ABG Base Excess ABG Hemoglobin 8.3 L Oxyhemoglobin Sodium Potassium Chloride Carbon Dioxide BUN 63 H Creatinine 2.4 H Glucose 102 H POC Glucose 108 H Lactic Acid Calcium Phosphorus 1.80 L Magnesium Direct Bilirubin AST ALT Alkaline Phosphatase Lactate Dehydrogenase Troponin T C-Reactive Protein Total Protein Albumin Prealbumin Triglycerides Cholesterol LDL Cholesterol Direct HDL Cholesterol Urine pH Urine WBC (Auto) Urine Creatinine Urine Total Protein Fluid Total Protein Vancomycin Trough Rheumatoid Factor Complement C4 Miscellaneous Test Crossmatch 11/28/16 11/28/16 11/28/16 12:31 16:09 23:46 WBC RBC Hgb Hct MCV MCH MCHC RDW Plt Count Lymph % (Auto) [place] % (Auto) Lymph # [place] # Baso # Seg Neutrophils % Seg Neuts % (Manual) Lymphocytes % (Manual) Monocytes % (Manual) Eosinophils % (Manual) Basophils % (Manual) Nucleated RBC % Seg Neutrophils # Seg Neutrophils # Man Lymphocytes # (Manual) Monocytes # (Manual) Eosinophils # (Manual) Basophils # (Manual) PT INR Fibrinogen dRVVT Confirm Interp Factor V Activity POC ABG pH POC ABG pCO2 POC ABG pO2 ABG pO2 ABG HCO3 ABG Base Excess ABG Hemoglobin Oxyhemoglobin Sodium Potassium Chloride Carbon Dioxide BUN Creatinine Glucose POC Glucose 126 H 111 H 119 H Lactic Acid Calcium Phosphorus Magnesium Direct Bilirubin AST ALT Alkaline Phosphatase Lactate Dehydrogenase Troponin T C-Reactive Protein Total Protein Albumin Prealbumin Triglycerides Cholesterol LDL Cholesterol Direct HDL Cholesterol Urine pH Urine WBC (Auto) Urine Creatinine Urine Total Protein Fluid Total Protein Vancomycin Trough Rheumatoid Factor Complement C4 Miscellaneous Test Crossmatch 11/29/16 11/29/16 11/29/16 03:33 04:52 05:10 WBC RBC Hgb Hct MCV MCH MCHC RDW Plt Count Lymph % (Auto) [place] % (Auto) Lymph # [place] # Baso # Seg Neutrophils % Seg Neuts % (Manual) Lymphocytes % (Manual) Monocytes % (Manual) Eosinophils % (Manual) Basophils % (Manual) Nucleated RBC % Seg Neutrophils # Seg Neutrophils # Man Lymphocytes # (Manual) Monocytes # (Manual) Eosinophils # (Manual) Basophils # (Manual) PT INR Fibrinogen dRVVT Confirm Interp Factor V Activity POC ABG pH POC ABG pCO2 POC ABG pO2 ABG pO2 ABG HCO3 ABG Base Excess ABG Hemoglobin 7.0 L Oxyhemoglobin 94.9 L Sodium Potassium Chloride Carbon Dioxide BUN 73 H Creatinine 2.7 H Glucose POC Glucose 108 H Lactic Acid Calcium Phosphorus Magnesium Direct Bilirubin AST ALT Alkaline Phosphatase Lactate Dehydrogenase Troponin T C-Reactive Protein Total Protein Albumin Prealbumin Triglycerides Cholesterol LDL Cholesterol Direct HDL Cholesterol Urine pH Urine WBC (Auto) Urine Creatinine Urine Total Protein Fluid Total Protein Vancomycin Trough Rheumatoid Factor Complement C4 Miscellaneous Test Crossmatch 11/29/16 11/29/16 11/29/16 12:16 18:05 23:46 WBC RBC Hgb Hct MCV MCH MCHC RDW Plt Count Lymph % (Auto) [place] % (Auto) Lymph # [place] # Baso # Seg Neutrophils % Seg Neuts % (Manual) Lymphocytes % (Manual) Monocytes % (Manual) Eosinophils % (Manual) Basophils % (Manual) Nucleated RBC % Seg Neutrophils # Seg Neutrophils # Man Lymphocytes # (Manual) Monocytes # (Manual) Eosinophils # (Manual) Basophils # (Manual) PT INR Fibrinogen dRVVT Confirm Interp Factor V Activity POC ABG pH POC ABG pCO2 POC ABG pO2 ABG pO2 ABG HCO3 ABG Base Excess ABG Hemoglobin Oxyhemoglobin Sodium Potassium Chloride Carbon Dioxide BUN Creatinine Glucose POC Glucose 133 H 146 H 141 H Lactic Acid Calcium Phosphorus Magnesium Direct Bilirubin AST ALT Alkaline Phosphatase Lactate Dehydrogenase Troponin T C-Reactive Protein Total Protein Albumin Prealbumin Triglycerides Cholesterol LDL Cholesterol Direct HDL Cholesterol Urine pH Urine WBC (Auto) Urine Creatinine Urine Total Protein Fluid Total Protein Vancomycin Trough Rheumatoid Factor Complement C4 Miscellaneous Test Crossmatch 11/30/16 11/30/16 11/30/16 04:17 04:17 04:32 WBC 12.0 H RBC 2.80 L Hgb 7.8 L Hct 23.6 L MCV MCH MCHC RDW 16.6 H Plt Count Lymph % (Auto) [place] % (Auto) 11.3 H Lymph # [place] # 1.4 H Baso # Seg Neutrophils % Seg Neuts % (Manual) Lymphocytes % (Manual) Monocytes % (Manual) Eosinophils % (Manual) Basophils % (Manual) Nucleated RBC % Seg Neutrophils # 8.2 H Seg Neutrophils # Man Lymphocytes # (Manual) Monocytes # (Manual) Eosinophils # (Manual) Basophils # (Manual) PT INR Fibrinogen dRVVT Confirm Interp Factor V Activity POC ABG pH POC ABG pCO2 POC ABG pO2 ABG pO2 ABG HCO3 ABG Base Excess ABG Hemoglobin Oxyhemoglobin Sodium 169 H* D Potassium 5.1 H Chloride 121.5 H Carbon Dioxide BUN 34 H Creatinine 1.3 H D Glucose 133 H POC Glucose 131 H Lactic Acid Calcium 10.3 H Phosphorus Magnesium Direct Bilirubin AST ALT Alkaline Phosphatase Lactate Dehydrogenase Troponin T C-Reactive Protein Total Protein Albumin Prealbumin Triglycerides Cholesterol LDL Cholesterol Direct HDL Cholesterol Urine pH Urine WBC (Auto) Urine Creatinine Urine Total Protein Fluid Total Protein Vancomycin Trough Rheumatoid Factor Complement C4 Miscellaneous Test Crossmatch 11/30/16 11/30/16 11/30/16 05:45 11:10 17:26 WBC RBC Hgb Hct MCV MCH MCHC RDW Plt Count Lymph % (Auto) [place] % (Auto) Lymph # [place] # Baso # Seg Neutrophils % Seg Neuts % (Manual) Lymphocytes % (Manual) Monocytes % (Manual) Eosinophils % (Manual) Basophils % (Manual) Nucleated RBC % Seg Neutrophils # Seg Neutrophils # Man Lymphocytes # (Manual) Monocytes # (Manual) Eosinophils # (Manual) Basophils # (Manual) PT INR Fibrinogen dRVVT Confirm Interp Factor V Activity POC ABG pH POC ABG pCO2 POC ABG pO2 ABG pO2 ABG HCO3 ABG Base Excess ABG Hemoglobin Oxyhemoglobin Sodium Potassium Chloride Carbon Dioxide BUN 45 H Creatinine 1.6 H Glucose 131 H POC Glucose 146 H 134 H Lactic Acid Calcium Phosphorus Magnesium Direct Bilirubin AST ALT Alkaline Phosphatase Lactate Dehydrogenase Troponin T C-Reactive Protein Total Protein Albumin Prealbumin Triglycerides Cholesterol LDL Cholesterol Direct HDL Cholesterol Urine pH Urine WBC (Auto) Urine Creatinine Urine Total Protein Fluid Total Protein Vancomycin Trough Rheumatoid Factor Complement C4 Miscellaneous Test Crossmatch 11/30/16 12/01/16 12/01/16 23:35 00:06 03:35 WBC RBC Hgb Hct MCV MCH MCHC RDW Plt Count Lymph % (Auto) [place] % (Auto) Lymph # [place] # Baso # Seg Neutrophils % Seg Neuts % (Manual) Lymphocytes % (Manual) Monocytes % (Manual) Eosinophils % (Manual) Basophils % (Manual) Nucleated RBC % Seg Neutrophils # Seg Neutrophils # Man Lymphocytes # (Manual) Monocytes # (Manual) Eosinophils # (Manual) Basophils # (Manual) PT INR Fibrinogen dRVVT Confirm Interp Factor V Activity POC ABG pH POC ABG pCO2 POC ABG pO2 ABG pO2 ABG HCO3 ABG Base Excess ABG Hemoglobin 6.9 L Oxyhemoglobin Sodium Potassium Chloride Carbon Dioxide BUN 58 H Creatinine 1.8 H Glucose 146 H POC Glucose 151 H Lactic Acid Calcium Phosphorus Magnesium Direct Bilirubin AST ALT Alkaline Phosphatase Lactate Dehydrogenase Troponin T C-Reactive Protein Total Protein Albumin Prealbumin Triglycerides Cholesterol LDL Cholesterol Direct HDL Cholesterol Urine pH Urine WBC (Auto) Urine Creatinine Urine Total Protein Fluid Total Protein Vancomycin Trough Rheumatoid Factor Complement C4 Miscellaneous Test Crossmatch 12/01/16 12/01/16 12/01/16 03:35 05:47 11:52 WBC 12.3 H RBC 2.82 L Hgb 7.8 L Hct 23.7 L MCV MCH MCHC RDW 16.7 H Plt Count Lymph % (Auto) [place] % (Auto) 9.8 H Lymph # [place] # 1.2 H Baso # Seg Neutrophils % Seg Neuts % (Manual) Lymphocytes % (Manual) Monocytes % (Manual) Eosinophils % (Manual) Basophils % (Manual) Nucleated RBC % Seg Neutrophils # 8.4 H Seg Neutrophils # Man Lymphocytes # (Manual) Monocytes # (Manual) Eosinophils # (Manual) Basophils # (Manual) PT INR Fibrinogen dRVVT Confirm Interp Factor V Activity POC ABG pH POC ABG pCO2 POC ABG pO2 ABG pO2 ABG HCO3 ABG Base Excess ABG Hemoglobin Oxyhemoglobin Sodium Potassium Chloride Carbon Dioxide BUN Creatinine Glucose POC Glucose 152 H 152 H Lactic Acid Calcium Phosphorus Magnesium Direct Bilirubin AST ALT Alkaline Phosphatase Lactate Dehydrogenase Troponin T C-Reactive Protein Total Protein Albumin Prealbumin Triglycerides Cholesterol LDL Cholesterol Direct HDL Cholesterol Urine pH Urine WBC (Auto) Urine Creatinine Urine Total Protein Fluid Total Protein Vancomycin Trough Rheumatoid Factor Complement C4 Miscellaneous Test Crossmatch 12/01/16 12/01/16 12/02/16 17:40 23:41 05:00 WBC RBC Hgb Hct MCV MCH MCHC RDW Plt Count Lymph % (Auto) [place] % (Auto) Lymph # [place] # Baso # Seg Neutrophils % Seg Neuts % (Manual) Lymphocytes % (Manual) Monocytes % (Manual) Eosinophils % (Manual) Basophils % (Manual) Nucleated RBC % Seg Neutrophils # Seg Neutrophils # Man Lymphocytes # (Manual) Monocytes # (Manual) Eosinophils # (Manual) Basophils # (Manual) PT INR Fibrinogen dRVVT Confirm Interp Factor V Activity POC ABG pH POC ABG pCO2 POC ABG pO2 ABG pO2 ABG HCO3 ABG Base Excess ABG Hemoglobin Oxyhemoglobin Sodium Potassium Chloride Carbon Dioxide BUN 45 H Creatinine Glucose 115 H POC Glucose 140 H 144 H Lactic Acid Calcium Phosphorus Magnesium Direct Bilirubin AST ALT Alkaline Phosphatase Lactate Dehydrogenase Troponin T C-Reactive Protein Total Protein Albumin Prealbumin Triglycerides Cholesterol LDL Cholesterol Direct HDL Cholesterol Urine pH Urine WBC (Auto) Urine Creatinine Urine Total Protein Fluid Total Protein Vancomycin Trough Rheumatoid Factor Complement C4 Miscellaneous Test Crossmatch 12/02/16 12/02/16 12/02/16 05:31 11:20 17:38 WBC RBC Hgb Hct MCV MCH MCHC RDW Plt Count Lymph % (Auto) [place] % (Auto) Lymph # [place] # Baso # Seg Neutrophils % Seg Neuts % (Manual) Lymphocytes % (Manual) Monocytes % (Manual) Eosinophils % (Manual) Basophils % (Manual) Nucleated RBC % Seg Neutrophils # Seg Neutrophils # Man Lymphocytes # (Manual) Monocytes # (Manual) Eosinophils # (Manual) Basophils # (Manual) PT INR Fibrinogen dRVVT Confirm Interp Factor V Activity POC ABG pH POC ABG pCO2 POC ABG pO2 ABG pO2 ABG HCO3 ABG Base Excess ABG Hemoglobin Oxyhemoglobin Sodium Potassium Chloride Carbon Dioxide BUN Creatinine Glucose POC Glucose 136 H 177 H 139 H Lactic Acid Calcium Phosphorus Magnesium Direct Bilirubin AST ALT Alkaline Phosphatase Lactate Dehydrogenase Troponin T C-Reactive Protein Total Protein Albumin Prealbumin Triglycerides Cholesterol LDL Cholesterol Direct HDL Cholesterol Urine pH Urine WBC (Auto) Urine Creatinine Urine Total Protein Fluid Total Protein Vancomycin Trough Rheumatoid Factor Complement C4 Miscellaneous Test Crossmatch 12/02/16 12/03/16 12/03/16 23:43 04:00 04:00 WBC 20.4 H RBC 2.74 L Hgb 7.4 L Hct 23.6 L MCV MCH 27 L MCHC RDW 17.1 H Plt Count Lymph % (Auto) [place] % (Auto) Lymph # [place] # Baso # Seg Neutrophils % Seg Neuts % (Manual) 31.0 L Lymphocytes % (Manual) Monocytes % (Manual) Eosinophils % (Manual) Basophils % (Manual) Nucleated RBC % Seg Neutrophils # Seg Neutrophils # Man Lymphocytes # (Manual) Monocytes # (Manual) Eosinophils # (Manual) Basophils # (Manual) PT INR Fibrinogen dRVVT Confirm Interp Factor V Activity POC ABG pH POC ABG pCO2 POC ABG pO2 ABG pO2 ABG HCO3 ABG Base Excess ABG Hemoglobin Oxyhemoglobin Sodium Potassium Chloride Carbon Dioxide BUN 61 H Creatinine 1.6 H Glucose 119 H POC Glucose 158 H Lactic Acid Calcium Phosphorus Magnesium Direct Bilirubin AST ALT Alkaline Phosphatase Lactate Dehydrogenase Troponin T C-Reactive Protein Total Protein Albumin Prealbumin Triglycerides Cholesterol LDL Cholesterol Direct HDL Cholesterol Urine pH Urine WBC (Auto) Urine Creatinine Urine Total Protein Fluid Total Protein Vancomycin Trough Rheumatoid Factor Complement C4 Miscellaneous Test Crossmatch 12/03/16 12/03/16 12/03/16 05:02 12:11 18:16 WBC RBC Hgb Hct MCV MCH MCHC RDW Plt Count Lymph % (Auto) [place] % (Auto) Lymph # [place] # Baso # Seg Neutrophils % Seg Neuts % (Manual) Lymphocytes % (Manual) Monocytes % (Manual) Eosinophils % (Manual) Basophils % (Manual) Nucleated RBC % Seg Neutrophils # Seg Neutrophils # Man Lymphocytes # (Manual) Monocytes # (Manual) Eosinophils # (Manual) Basophils # (Manual) PT INR Fibrinogen dRVVT Confirm Interp Factor V Activity POC ABG pH POC ABG pCO2 POC ABG pO2 ABG pO2 ABG HCO3 ABG Base Excess ABG Hemoglobin Oxyhemoglobin Sodium Potassium Chloride Carbon Dioxide BUN Creatinine Glucose POC Glucose 146 H 157 H 124 H Lactic Acid Calcium Phosphorus Magnesium Direct Bilirubin AST ALT Alkaline Phosphatase Lactate Dehydrogenase Troponin T C-Reactive Protein Total Protein Albumin Prealbumin Triglycerides Cholesterol LDL Cholesterol Direct HDL Cholesterol Urine pH Urine WBC (Auto) Urine Creatinine Urine Total Protein Fluid Total Protein Vancomycin Trough Rheumatoid Factor Complement C4 Miscellaneous Test Crossmatch 12/03/16 12/04/16 12/04/16 23:41 04:00 04:45 WBC RBC Hgb Hct MCV MCH MCHC RDW Plt Count Lymph % (Auto) [place] % (Auto) Lymph # [place] # Baso # Seg Neutrophils % Seg Neuts % (Manual) Lymphocytes % (Manual) Monocytes % (Manual) Eosinophils % (Manual) Basophils % (Manual) Nucleated RBC % Seg Neutrophils # Seg Neutrophils # Man Lymphocytes # (Manual) Monocytes # (Manual) Eosinophils # (Manual) Basophils # (Manual) PT INR Fibrinogen dRVVT Confirm Interp Factor V Activity POC ABG pH POC ABG pCO2 POC ABG pO2 ABG pO2 ABG HCO3 ABG Base Excess ABG Hemoglobin Oxyhemoglobin Sodium Potassium Chloride Carbon Dioxide BUN 76 H Creatinine 1.6 H Glucose POC Glucose 130 H 136 H Lactic Acid Calcium Phosphorus Magnesium Direct Bilirubin AST ALT Alkaline Phosphatase 155 H Lactate Dehydrogenase Troponin T C-Reactive Protein Total Protein 5.5 L Albumin 1.5 L Prealbumin Triglycerides Cholesterol LDL Cholesterol Direct HDL Cholesterol Urine pH Urine WBC (Auto) Urine Creatinine Urine Total Protein Fluid Total Protein Vancomycin Trough Rheumatoid Factor Complement C4 Miscellaneous Test Crossmatch 12/04/16 12/04/16 12/05/16 12:08 17:23 00:10 WBC RBC Hgb Hct MCV MCH MCHC RDW Plt Count Lymph % (Auto) [place] % (Auto) Lymph # [place] # Baso # Seg Neutrophils % Seg Neuts % (Manual) Lymphocytes % (Manual) Monocytes % (Manual) Eosinophils % (Manual) Basophils % (Manual) Nucleated RBC % Seg Neutrophils # Seg Neutrophils # Man Lymphocytes # (Manual) Monocytes # (Manual) Eosinophils # (Manual) Basophils # (Manual) PT INR Fibrinogen dRVVT Confirm Interp Factor V Activity POC ABG pH POC ABG pCO2 POC ABG pO2 ABG pO2 ABG HCO3 ABG Base Excess ABG Hemoglobin Oxyhemoglobin Sodium Potassium Chloride Carbon Dioxide BUN Creatinine Glucose POC Glucose 114 H 129 H 124 H Lactic Acid Calcium Phosphorus Magnesium Direct Bilirubin AST ALT Alkaline Phosphatase Lactate Dehydrogenase Troponin T C-Reactive Protein Total Protein Albumin Prealbumin Triglycerides Cholesterol LDL Cholesterol Direct HDL Cholesterol Urine pH Urine WBC (Auto) Urine Creatinine Urine Total Protein Fluid Total Protein Vancomycin Trough Rheumatoid Factor Complement C4 Miscellaneous Test Crossmatch 12/05/16 12/05/16 12/05/16 05:00 05:00 05:18 WBC RBC Hgb Hct MCV MCH MCHC RDW Plt Count Lymph % (Auto) [place] % (Auto) Lymph # [place] # Baso # Seg Neutrophils % Seg Neuts % (Manual) Lymphocytes % (Manual) Monocytes % (Manual) Eosinophils % (Manual) Basophils % (Manual) Nucleated RBC % Seg Neutrophils # Seg Neutrophils # Man Lymphocytes # (Manual) Monocytes # (Manual) Eosinophils # (Manual) Basophils # (Manual) PT INR Fibrinogen dRVVT Confirm Interp Factor V Activity POC ABG pH POC ABG pCO2 POC ABG pO2 ABG pO2 ABG HCO3 ABG Base Excess ABG Hemoglobin Oxyhemoglobin Sodium Potassium Chloride Carbon Dioxide 21 L BUN 85 H Creatinine 1.9 H Glucose 131 H POC Glucose 154 H Lactic Acid Calcium Phosphorus Magnesium Direct Bilirubin AST ALT Alkaline Phosphatase Lactate Dehydrogenase Troponin T C-Reactive Protein 19.30 H Total Protein Albumin Prealbumin Triglycerides Cholesterol LDL Cholesterol Direct HDL Cholesterol Urine pH Urine WBC (Auto) Urine Creatinine Urine Total Protein Fluid Total Protein Vancomycin Trough Rheumatoid Factor Complement C4 Miscellaneous Test Crossmatch 12/05/16 12/05/16 12/05/16 11:43 17:46 23:25 WBC RBC Hgb Hct MCV MCH MCHC RDW Plt Count Lymph % (Auto) [place] % (Auto) Lymph # [place] # Baso # Seg Neutrophils % Seg Neuts % (Manual) Lymphocytes % (Manual) Monocytes % (Manual) Eosinophils % (Manual) Basophils % (Manual) Nucleated RBC % Seg Neutrophils # Seg Neutrophils # Man Lymphocytes # (Manual) Monocytes # (Manual) Eosinophils # (Manual) Basophils # (Manual) PT INR Fibrinogen dRVVT Confirm Interp Factor V Activity POC ABG pH POC ABG pCO2 POC ABG pO2 ABG pO2 ABG HCO3 ABG Base Excess ABG Hemoglobin Oxyhemoglobin Sodium Potassium Chloride Carbon Dioxide BUN Creatinine Glucose POC Glucose 117 H 113 H 111 H Lactic Acid Calcium Phosphorus Magnesium Direct Bilirubin AST ALT Alkaline Phosphatase Lactate Dehydrogenase Troponin T C-Reactive Protein Total Protein Albumin Prealbumin Triglycerides Cholesterol LDL Cholesterol Direct HDL Cholesterol Urine pH Urine WBC (Auto) Urine Creatinine Urine Total Protein Fluid Total Protein Vancomycin Trough Rheumatoid Factor Complement C4 Miscellaneous Test Crossmatch 12/05/16 12/06/16 12/06/16 Unknown 04:58 06:00 WBC RBC Hgb Hct MCV MCH MCHC RDW Plt Count Lymph % (Auto) [place] % (Auto) Lymph # [place] # Baso # Seg Neutrophils % Seg Neuts % (Manual) Lymphocytes % (Manual) Monocytes % (Manual) Eosinophils % (Manual) Basophils % (Manual) Nucleated RBC % Seg Neutrophils # Seg Neutrophils # Man Lymphocytes # (Manual) Monocytes # (Manual) Eosinophils # (Manual) Basophils # (Manual) PT INR Fibrinogen dRVVT Confirm Interp Factor V Activity POC ABG pH POC ABG pCO2 POC ABG pO2 ABG pO2 75.2 L ABG HCO3 ABG Base Excess -3.4 L ABG Hemoglobin 7.4 L Oxyhemoglobin 94.5 L Sodium Potassium Chloride Carbon Dioxide 20 L BUN 99 H Creatinine 2.1 H Glucose 126 H POC Glucose 145 H Lactic Acid Calcium Phosphorus 4.80 H Magnesium Direct Bilirubin AST ALT Alkaline Phosphatase Lactate Dehydrogenase Troponin T C-Reactive Protein Total Protein Albumin Prealbumin Triglycerides Cholesterol LDL Cholesterol Direct HDL Cholesterol Urine pH Urine WBC (Auto) Urine Creatinine Urine Total Protein Fluid Total Protein Vancomycin Trough Rheumatoid Factor Complement C4 Miscellaneous Test Crossmatch 12/06/16 12/06/16 12/06/16 06:46 11:54 17:55 WBC RBC Hgb 8.3 L Hct 26.4 L MCV MCH MCHC RDW Plt Count Lymph % (Auto) [place] % (Auto) Lymph # [place] # Baso # Seg Neutrophils % Seg Neuts % (Manual) Lymphocytes % (Manual) Monocytes % (Manual) Eosinophils % (Manual) Basophils % (Manual) Nucleated RBC % Seg Neutrophils # Seg Neutrophils # Man Lymphocytes # (Manual) Monocytes # (Manual) Eosinophils # (Manual) Basophils # (Manual) PT INR Fibrinogen dRVVT Confirm Interp Factor V Activity POC ABG pH POC ABG pCO2 POC ABG pO2 ABG pO2 ABG HCO3 ABG Base Excess ABG Hemoglobin Oxyhemoglobin Sodium Potassium Chloride Carbon Dioxide BUN Creatinine Glucose POC Glucose 126 H 157 H Lactic Acid Calcium Phosphorus Magnesium Direct Bilirubin AST ALT Alkaline Phosphatase Lactate Dehydrogenase Troponin T C-Reactive Protein Total Protein Albumin Prealbumin Triglycerides Cholesterol LDL Cholesterol Direct HDL Cholesterol Urine pH Urine WBC (Auto) Urine Creatinine Urine Total Protein Fluid Total Protein Vancomycin Trough Rheumatoid Factor Complement C4 Miscellaneous Test Crossmatch 12/06/16 12/07/16 12/07/16 23:59 05:34 06:30 WBC RBC Hgb Hct MCV MCH MCHC RDW Plt Count Lymph % (Auto) [place] % (Auto) Lymph # [place] # Baso # Seg Neutrophils % Seg Neuts % (Manual) Lymphocytes % (Manual) Monocytes % (Manual) Eosinophils % (Manual) Basophils % (Manual) Nucleated RBC % Seg Neutrophils # Seg Neutrophils # Man Lymphocytes # (Manual) Monocytes # (Manual) Eosinophils # (Manual) Basophils # (Manual) PT INR Fibrinogen dRVVT Confirm Interp Factor V Activity POC ABG pH POC ABG pCO2 POC ABG pO2 ABG pO2 ABG HCO3 ABG Base Excess ABG Hemoglobin Oxyhemoglobin Sodium Potassium Chloride Carbon Dioxide BUN 67 H Creatinine 1.4 H Glucose 126 H POC Glucose 129 H 129 H Lactic Acid Calcium Phosphorus Magnesium Direct Bilirubin AST ALT Alkaline Phosphatase Lactate Dehydrogenase Troponin T C-Reactive Protein Total Protein Albumin Prealbumin Triglycerides Cholesterol LDL Cholesterol Direct HDL Cholesterol Urine pH Urine WBC (Auto) Urine Creatinine Urine Total Protein Fluid Total Protein Vancomycin Trough Rheumatoid Factor Complement C4 Miscellaneous Test Crossmatch 12/07/16 12/07/16 12/07/16 06:30 08:00 09:45 WBC 18.8 H RBC 2.52 L Hgb 6.9 L 6.8 L Hct 21.2 L 21.1 L MCV MCH 27 L MCHC RDW 18.0 H Plt Count Lymph % (Auto) [place] % (Auto) 9.9 H Lymph # [place] # 1.9 H Baso # Seg Neutrophils % 71.8 H Seg Neuts % (Manual) Lymphocytes % (Manual) Monocytes % (Manual) Eosinophils % (Manual) Basophils % (Manual) Nucleated RBC % Seg Neutrophils # 13.5 H Seg Neutrophils # Man Lymphocytes # (Manual) Monocytes # (Manual) Eosinophils # (Manual) Basophils # (Manual) PT INR Fibrinogen dRVVT Confirm Interp Factor V Activity POC ABG pH POC ABG pCO2 POC ABG pO2 ABG pO2 ABG HCO3 ABG Base Excess ABG Hemoglobin Oxyhemoglobin Sodium Potassium Chloride Carbon Dioxide BUN Creatinine Glucose POC Glucose Lactic Acid Calcium Phosphorus Magnesium Direct Bilirubin AST ALT Alkaline Phosphatase Lactate Dehydrogenase Troponin T C-Reactive Protein Total Protein Albumin Prealbumin Triglycerides Cholesterol LDL Cholesterol Direct HDL Cholesterol Urine pH Urine WBC (Auto) Urine Creatinine Urine Total Protein Fluid Total Protein Vancomycin Trough Rheumatoid Factor Complement C4 Miscellaneous Test Crossmatch See Detail 12/07/16 12/07/16 12/07/16 11:44 18:19 23:59 WBC RBC Hgb Hct MCV MCH MCHC RDW Plt Count Lymph % (Auto) [place] % (Auto) Lymph # [place] # Baso # Seg Neutrophils % Seg Neuts % (Manual) Lymphocytes % (Manual) Monocytes % (Manual) Eosinophils % (Manual) Basophils % (Manual) Nucleated RBC % Seg Neutrophils # Seg Neutrophils # Man Lymphocytes # (Manual) Monocytes # (Manual) Eosinophils # (Manual) Basophils # (Manual) PT INR Fibrinogen dRVVT Confirm Interp Factor V Activity POC ABG pH POC ABG pCO2 POC ABG pO2 ABG pO2 ABG HCO3 ABG Base Excess ABG Hemoglobin Oxyhemoglobin Sodium Potassium Chloride Carbon Dioxide BUN Creatinine Glucose POC Glucose 137 H 138 H 133 H Lactic Acid Calcium Phosphorus Magnesium Direct Bilirubin AST ALT Alkaline Phosphatase Lactate Dehydrogenase Troponin T C-Reactive Protein Total Protein Albumin Prealbumin Triglycerides Cholesterol LDL Cholesterol Direct HDL Cholesterol Urine pH Urine WBC (Auto) Urine Creatinine Urine Total Protein Fluid Total Protein Vancomycin Trough Rheumatoid Factor Complement C4 Miscellaneous Test Crossmatch 12/08/16 12/08/16 12/08/16 05:25 05:30 05:30 WBC 23.8 H RBC 2.88 L Hgb 8.1 L Hct 24.3 L MCV MCH MCHC RDW 16.7 H Plt Count Lymph % (Auto) [place] % (Auto) Lymph # [place] # Baso # Seg Neutrophils % Seg Neuts % (Manual) 76.0 H Lymphocytes % (Manual) 9.0 L Monocytes % (Manual) 9.0 H Eosinophils % (Manual) Basophils % (Manual) Nucleated RBC % Seg Neutrophils # Seg Neutrophils # Man 18.1 H Lymphocytes # (Manual) Monocytes # (Manual) 2.1 H Eosinophils # (Manual) Basophils # (Manual) PT INR Fibrinogen dRVVT Confirm Interp Factor V Activity POC ABG pH POC ABG pCO2 POC ABG pO2 ABG pO2 ABG HCO3 ABG Base Excess ABG Hemoglobin Oxyhemoglobin Sodium Potassium Chloride Carbon Dioxide 21 L BUN 76 H Creatinine 1.6 H Glucose 133 H POC Glucose 177 H Lactic Acid Calcium Phosphorus Magnesium Direct Bilirubin AST ALT Alkaline Phosphatase Lactate Dehydrogenase Troponin T C-Reactive Protein Total Protein Albumin Prealbumin Triglycerides Cholesterol LDL Cholesterol Direct HDL Cholesterol Urine pH Urine WBC (Auto) Urine Creatinine Urine Total Protein Fluid Total Protein Vancomycin Trough Rheumatoid Factor Complement C4 Miscellaneous Test Crossmatch 12/08/16 12/08/16 12/09/16 11:45 18:00 00:00 WBC RBC Hgb Hct MCV MCH MCHC RDW Plt Count Lymph % (Auto) [place] % (Auto) Lymph # [place] # Baso # Seg Neutrophils % Seg Neuts % (Manual) Lymphocytes % (Manual) Monocytes % (Manual) Eosinophils % (Manual) Basophils % (Manual) Nucleated RBC % Seg Neutrophils # Seg Neutrophils # Man Lymphocytes # (Manual) Monocytes # (Manual) Eosinophils # (Manual) Basophils # (Manual) PT INR Fibrinogen dRVVT Confirm Interp Factor V Activity POC ABG pH POC ABG pCO2 POC ABG pO2 ABG pO2 ABG HCO3 ABG Base Excess ABG Hemoglobin Oxyhemoglobin Sodium Potassium Chloride Carbon Dioxide BUN Creatinine Glucose POC Glucose 163 H 123 H 137 H Lactic Acid Calcium Phosphorus Magnesium Direct Bilirubin AST ALT Alkaline Phosphatase Lactate Dehydrogenase Troponin T C-Reactive Protein Total Protein Albumin Prealbumin Triglycerides Cholesterol LDL Cholesterol Direct HDL Cholesterol Urine pH Urine WBC (Auto) Urine Creatinine Urine Total Protein Fluid Total Protein Vancomycin Trough Rheumatoid Factor Complement C4 Miscellaneous Test Crossmatch 12/09/16 12/09/16 12/09/16 05:34 06:00 06:00 WBC 15.5 H RBC 2.87 L Hgb 8.0 L Hct 24.2 L MCV MCH MCHC RDW 17.2 H Plt Count Lymph % (Auto) [place] % (Auto) 11.6 H Lymph # [place] # 1.8 H Baso # Seg Neutrophils % 70.8 H Seg Neuts % (Manual) Lymphocytes % (Manual) Monocytes % (Manual) Eosinophils % (Manual) Basophils % (Manual) Nucleated RBC % Seg Neutrophils # 11.0 H Seg Neutrophils # Man Lymphocytes # (Manual) Monocytes # (Manual) Eosinophils # (Manual) Basophils # (Manual) PT INR Fibrinogen dRVVT Confirm Interp Factor V Activity POC ABG pH POC ABG pCO2 POC ABG pO2 ABG pO2 ABG HCO3 ABG Base Excess ABG Hemoglobin Oxyhemoglobin Sodium Potassium Chloride Carbon Dioxide BUN 51 H Creatinine Glucose 117 H POC Glucose 136 H Lactic Acid Calcium Phosphorus Magnesium Direct Bilirubin AST ALT Alkaline Phosphatase Lactate Dehydrogenase Troponin T C-Reactive Protein Total Protein Albumin Prealbumin Triglycerides Cholesterol LDL Cholesterol Direct HDL Cholesterol Urine pH Urine WBC (Auto) Urine Creatinine Urine Total Protein Fluid Total Protein Vancomycin Trough Rheumatoid Factor Complement C4 Miscellaneous Test Crossmatch 12/09/16 12/09/16 12/09/16 12:29 17:52 23:10 WBC RBC Hgb Hct MCV MCH MCHC RDW Plt Count Lymph % (Auto) [place] % (Auto) Lymph # [place] # Baso # Seg Neutrophils % Seg Neuts % (Manual) Lymphocytes % (Manual) Monocytes % (Manual) Eosinophils % (Manual) Basophils % (Manual) Nucleated RBC % Seg Neutrophils # Seg Neutrophils # Man Lymphocytes # (Manual) Monocytes # (Manual) Eosinophils # (Manual) Basophils # (Manual) PT INR Fibrinogen dRVVT Confirm Interp Factor V Activity POC ABG pH POC ABG pCO2 POC ABG pO2 ABG pO2 ABG HCO3 ABG Base Excess ABG Hemoglobin Oxyhemoglobin Sodium Potassium Chloride Carbon Dioxide BUN Creatinine Glucose POC Glucose 139 H 140 H 129 H Lactic Acid Calcium Phosphorus Magnesium Direct Bilirubin AST ALT Alkaline Phosphatase Lactate Dehydrogenase Troponin T C-Reactive Protein Total Protein Albumin Prealbumin Triglycerides Cholesterol LDL Cholesterol Direct HDL Cholesterol Urine pH Urine WBC (Auto) Urine Creatinine Urine Total Protein Fluid Total Protein Vancomycin Trough Rheumatoid Factor Complement C4 Miscellaneous Test Crossmatch 12/10/16 12/10/16 12/10/16 05:00 05:00 06:54 WBC 15.7 H RBC 2.87 L Hgb 8.2 L Hct 24.4 L MCV MCH MCHC RDW 17.2 H Plt Count Lymph % (Auto) [place] % (Auto) 8.3 H Lymph # [place] # 1.3 H Baso # Seg Neutrophils % 72.8 H Seg Neuts % (Manual) Lymphocytes % (Manual) Monocytes % (Manual) Eosinophils % (Manual) Basophils % (Manual) Nucleated RBC % Seg Neutrophils # 11.4 H Seg Neutrophils # Man Lymphocytes # (Manual) Monocytes # (Manual) Eosinophils # (Manual) Basophils # (Manual) PT INR Fibrinogen dRVVT Confirm Interp Factor V Activity POC ABG pH POC ABG pCO2 POC ABG pO2 ABG pO2 ABG HCO3 ABG Base Excess ABG Hemoglobin Oxyhemoglobin Sodium Potassium Chloride Carbon Dioxide BUN 64 H Creatinine 1.4 H Glucose 134 H POC Glucose 154 H Lactic Acid Calcium Phosphorus Magnesium Direct Bilirubin AST ALT Alkaline Phosphatase Lactate Dehydrogenase Troponin T C-Reactive Protein Total Protein Albumin Prealbumin Triglycerides Cholesterol LDL Cholesterol Direct HDL Cholesterol Urine pH Urine WBC (Auto) Urine Creatinine Urine Total Protein Fluid Total Protein Vancomycin Trough Rheumatoid Factor Complement C4 Miscellaneous Test Crossmatch 12/10/16 12/10/16 12/10/16 11:58 17:29 23:52 WBC RBC Hgb Hct MCV MCH MCHC RDW Plt Count Lymph % (Auto) [place] % (Auto) Lymph # [place] # Baso # Seg Neutrophils % Seg Neuts % (Manual) Lymphocytes % (Manual) Monocytes % (Manual) Eosinophils % (Manual) Basophils % (Manual) Nucleated RBC % Seg Neutrophils # Seg Neutrophils # Man Lymphocytes # (Manual) Monocytes # (Manual) Eosinophils # (Manual) Basophils # (Manual) PT INR Fibrinogen dRVVT Confirm Interp Factor V Activity POC ABG pH POC ABG pCO2 POC ABG pO2 ABG pO2 ABG HCO3 ABG Base Excess ABG Hemoglobin Oxyhemoglobin Sodium Potassium Chloride Carbon Dioxide BUN Creatinine Glucose POC Glucose 144 H 163 H 125 H Lactic Acid Calcium Phosphorus Magnesium Direct Bilirubin AST ALT Alkaline Phosphatase Lactate Dehydrogenase Troponin T C-Reactive Protein Total Protein Albumin Prealbumin Triglycerides Cholesterol LDL Cholesterol Direct HDL Cholesterol Urine pH Urine WBC (Auto) Urine Creatinine Urine Total Protein Fluid Total Protein Vancomycin Trough Rheumatoid Factor Complement C4 Miscellaneous Test Crossmatch 12/11/16 12/11/16 12/11/16 05:38 06:30 06:30 WBC 14.4 H RBC 2.76 L Hgb 7.7 L Hct 23.4 L MCV MCH MCHC RDW 17.2 H Plt Count Lymph % (Auto) [place] % (Auto) 8.8 H Lymph # [place] # 1.3 H Baso # Seg Neutrophils % 72.5 H Seg Neuts % (Manual) Lymphocytes % (Manual) Monocytes % (Manual) Eosinophils % (Manual) Basophils % (Manual) Nucleated RBC % Seg Neutrophils # 10.5 H Seg Neutrophils # Man Lymphocytes # (Manual) Monocytes # (Manual) Eosinophils # (Manual) Basophils # (Manual) PT INR Fibrinogen dRVVT Confirm Interp Factor V Activity POC ABG pH POC ABG pCO2 POC ABG pO2 ABG pO2 ABG HCO3 ABG Base Excess ABG Hemoglobin Oxyhemoglobin Sodium Potassium Chloride Carbon Dioxide BUN 43 H Creatinine Glucose 124 H POC Glucose 141 H Lactic Acid Calcium 8.3 L Phosphorus Magnesium 1.60 L Direct Bilirubin AST ALT Alkaline Phosphatase Lactate Dehydrogenase Troponin T C-Reactive Protein Total Protein Albumin Prealbumin Triglycerides Cholesterol LDL Cholesterol Direct HDL Cholesterol Urine pH Urine WBC (Auto) Urine Creatinine Urine Total Protein Fluid Total Protein Vancomycin Trough Rheumatoid Factor Complement C4 Miscellaneous Test Crossmatch 12/11/16 12/11/16 12/11/16 11:15 17:59 23:48 WBC RBC Hgb Hct MCV MCH MCHC RDW Plt Count Lymph % (Auto) [place] % (Auto) Lymph # [place] # Baso # Seg Neutrophils % Seg Neuts % (Manual) Lymphocytes % (Manual) Monocytes % (Manual) Eosinophils % (Manual) Basophils % (Manual) Nucleated RBC % Seg Neutrophils # Seg Neutrophils # Man Lymphocytes # (Manual) Monocytes # (Manual) Eosinophils # (Manual) Basophils # (Manual) PT INR Fibrinogen dRVVT Confirm Interp Factor V Activity POC ABG pH POC ABG pCO2 POC ABG pO2 ABG pO2 ABG HCO3 ABG Base Excess ABG Hemoglobin Oxyhemoglobin Sodium Potassium Chloride Carbon Dioxide BUN Creatinine Glucose POC Glucose 188 H 106 H 119 H Lactic Acid Calcium Phosphorus Magnesium Direct Bilirubin AST ALT Alkaline Phosphatase Lactate Dehydrogenase Troponin T C-Reactive Protein Total Protein Albumin Prealbumin Triglycerides Cholesterol LDL Cholesterol Direct HDL Cholesterol Urine pH Urine WBC (Auto) Urine Creatinine Urine Total Protein Fluid Total Protein Vancomycin Trough Rheumatoid Factor Complement C4 Miscellaneous Test Crossmatch 12/12/16 12/12/16 12/12/16 05:00 06:01 12:20 WBC 16.7 H RBC 2.87 L Hgb 8.0 L Hct 24.2 L MCV MCH MCHC RDW 17.6 H Plt Count Lymph % (Auto) [place] % (Auto) Lymph # [place] # 1.2 H Baso # Seg Neutrophils % 75.3 H Seg Neuts % (Manual) Lymphocytes % (Manual) Monocytes % (Manual) Eosinophils % (Manual) Basophils % (Manual) Nucleated RBC % Seg Neutrophils # 12.6 H Seg Neutrophils # Man Lymphocytes # (Manual) Monocytes # (Manual) Eosinophils # (Manual) Basophils # (Manual) PT INR Fibrinogen dRVVT Confirm Interp Factor V Activity POC ABG pH POC ABG pCO2 POC ABG pO2 ABG pO2 ABG HCO3 ABG Base Excess ABG Hemoglobin Oxyhemoglobin Sodium Potassium Chloride Carbon Dioxide BUN Creatinine Glucose POC Glucose 134 H 149 H Lactic Acid Calcium Phosphorus Magnesium Direct Bilirubin AST ALT Alkaline Phosphatase Lactate Dehydrogenase Troponin T C-Reactive Protein Total Protein Albumin Prealbumin Triglycerides Cholesterol LDL Cholesterol Direct HDL Cholesterol Urine pH Urine WBC (Auto) Urine Creatinine Urine Total Protein Fluid Total Protein Vancomycin Trough Rheumatoid Factor Complement C4 Miscellaneous Test Crossmatch 12/12/16 12/12/16 12/12/16 17:38 23:01 Unknown WBC RBC Hgb Hct MCV MCH MCHC RDW Plt Count Lymph % (Auto) [place] % (Auto) Lymph # [place] # Baso # Seg Neutrophils % Seg Neuts % (Manual) Lymphocytes % (Manual) Monocytes % (Manual) Eosinophils % (Manual) Basophils % (Manual) Nucleated RBC % Seg Neutrophils # Seg Neutrophils # Man Lymphocytes # (Manual) Monocytes # (Manual) Eosinophils # (Manual) Basophils # (Manual) PT INR Fibrinogen dRVVT Confirm Interp Factor V Activity POC ABG pH POC ABG pCO2 POC ABG pO2 ABG pO2 ABG HCO3 ABG Base Excess ABG Hemoglobin Oxyhemoglobin Sodium Potassium Chloride Carbon Dioxide BUN 60 H Creatinine 1.3 H Glucose 126 H POC Glucose 127 H 144 H Lactic Acid Calcium Phosphorus Magnesium Direct Bilirubin AST ALT Alkaline Phosphatase Lactate Dehydrogenase Troponin T C-Reactive Protein Total Protein Albumin Prealbumin Triglycerides Cholesterol LDL Cholesterol Direct HDL Cholesterol Urine pH Urine WBC (Auto) Urine Creatinine Urine Total Protein Fluid Total Protein Vancomycin Trough Rheumatoid Factor Complement C4 Miscellaneous Test Crossmatch 12/13/16 12/13/16 12/13/16 04:00 04:00 05:19 WBC 18.7 H RBC 2.89 L Hgb 8.3 L Hct 24.6 L MCV MCH MCHC RDW 17.5 H Plt Count Lymph % (Auto) [place] % (Auto) Lymph # [place] # 1.3 H Baso # Seg Neutrophils % 71.5 H Seg Neuts % (Manual) Lymphocytes % (Manual) Monocytes % (Manual) Eosinophils % (Manual) Basophils % (Manual) Nucleated RBC % Seg Neutrophils # 13.4 H Seg Neutrophils # Man Lymphocytes # (Manual) Monocytes # (Manual) Eosinophils # (Manual) Basophils # (Manual) PT INR Fibrinogen dRVVT Confirm Interp Factor V Activity POC ABG pH POC ABG pCO2 POC ABG pO2 ABG pO2 ABG HCO3 ABG Base Excess ABG Hemoglobin Oxyhemoglobin Sodium Potassium Chloride Carbon Dioxide BUN 73 H Creatinine 1.5 H Glucose 141 H POC Glucose 171 H Lactic Acid Calcium Phosphorus Magnesium Direct Bilirubin AST ALT Alkaline Phosphatase Lactate Dehydrogenase Troponin T C-Reactive Protein Total Protein Albumin Prealbumin Triglycerides Cholesterol LDL Cholesterol Direct HDL Cholesterol Urine pH Urine WBC (Auto) Urine Creatinine Urine Total Protein Fluid Total Protein Vancomycin Trough Rheumatoid Factor Complement C4 Miscellaneous Test Crossmatch 10/12/13/16 12/14/16 12:28 16:48 00:01 WBC RBC Hgb Hct MCV MCH MCHC RDW Plt Count Lymph % (Auto) [place] % (Auto) Lymph # [place] # Baso # Seg Neutrophils % Seg Neuts % (Manual) Lymphocytes % (Manual) Monocytes % (Manual) Eosinophils % (Manual) Basophils % (Manual) Nucleated RBC % Seg Neutrophils # Seg Neutrophils # Man Lymphocytes # (Manual) Monocytes # (Manual) Eosinophils # (Manual) Basophils # (Manual) PT INR Fibrinogen dRVVT Confirm Interp Factor V Activity POC ABG pH POC ABG pCO2 POC ABG pO2 ABG pO2 ABG HCO3 ABG Base Excess ABG Hemoglobin Oxyhemoglobin Sodium Potassium Chloride Carbon Dioxide BUN Creatinine Glucose POC Glucose 206 H 173 H 139 H Lactic Acid Calcium Phosphorus Magnesium Direct Bilirubin AST ALT Alkaline Phosphatase Lactate Dehydrogenase Troponin T C-Reactive Protein Total Protein Albumin Prealbumin Triglycerides Cholesterol LDL Cholesterol Direct HDL Cholesterol Urine pH Urine WBC (Auto) Urine Creatinine Urine Total Protein Fluid Total Protein Vancomycin Trough Rheumatoid Factor Complement C4 Miscellaneous Test Crossmatch 12/14/16 12/14/16 12/14/16 05:16 06:10 11:17 WBC RBC Hgb Hct MCV MCH MCHC RDW Plt Count Lymph % (Auto) [place] % (Auto) Lymph # [place] # Baso # Seg Neutrophils % Seg Neuts % (Manual) Lymphocytes % (Manual) Monocytes % (Manual) Eosinophils % (Manual) Basophils % (Manual) Nucleated RBC % Seg Neutrophils # Seg Neutrophils # Man Lymphocytes # (Manual) Monocytes # (Manual) Eosinophils # (Manual) Basophils # (Manual) PT INR Fibrinogen dRVVT Confirm Interp Factor V Activity POC ABG pH POC ABG pCO2 POC ABG pO2 ABG pO2 ABG HCO3 ABG Base Excess ABG Hemoglobin Oxyhemoglobin Sodium Potassium Chloride Carbon Dioxide BUN 57 H Creatinine 1.4 H Glucose 135 H POC Glucose 158 H 137 H Lactic Acid Calcium Phosphorus Magnesium Direct Bilirubin AST ALT Alkaline Phosphatase Lactate Dehydrogenase Troponin T C-Reactive Protein Total Protein Albumin Prealbumin Triglycerides Cholesterol LDL Cholesterol Direct HDL Cholesterol Urine pH Urine WBC (Auto) Urine Creatinine Urine Total Protein Fluid Total Protein Vancomycin Trough Rheumatoid Factor Complement C4 Miscellaneous Test Crossmatch 12/14/16 12/14/16 12/15/16 17:52 23:27 04:00 WBC RBC Hgb Hct MCV MCH MCHC RDW Plt Count Lymph % (Auto) [place] % (Auto) Lymph # [place] # Baso # Seg Neutrophils % Seg Neuts % (Manual) Lymphocytes % (Manual) Monocytes % (Manual) Eosinophils % (Manual) Basophils % (Manual) Nucleated RBC % Seg Neutrophils # Seg Neutrophils # Man Lymphocytes # (Manual) Monocytes # (Manual) Eosinophils # (Manual) Basophils # (Manual) PT INR Fibrinogen dRVVT Confirm Interp Factor V Activity POC ABG pH POC ABG pCO2 POC ABG pO2 ABG pO2 ABG HCO3 ABG Base Excess ABG Hemoglobin Oxyhemoglobin Sodium Potassium Chloride 97.9 L Carbon Dioxide BUN 75 H Creatinine 1.6 H Glucose 122 H POC Glucose 149 H 163 H Lactic Acid Calcium Phosphorus 5.20 H Magnesium Direct Bilirubin AST ALT Alkaline Phosphatase Lactate Dehydrogenase Troponin T C-Reactive Protein Total Protein Albumin Prealbumin Triglycerides Cholesterol LDL Cholesterol Direct HDL Cholesterol Urine pH Urine WBC (Auto) Urine Creatinine Urine Total Protein Fluid Total Protein Vancomycin Trough Rheumatoid Factor Complement C4 Miscellaneous Test Crossmatch 12/15/16 12/15/16 12/15/16 05:50 11:24 17:01 WBC RBC Hgb Hct MCV MCH MCHC RDW Plt Count Lymph % (Auto) [place] % (Auto) Lymph # [place] # Baso # Seg Neutrophils % Seg Neuts % (Manual) Lymphocytes % (Manual) Monocytes % (Manual) Eosinophils % (Manual) Basophils % (Manual) Nucleated RBC % Seg Neutrophils # Seg Neutrophils # Man Lymphocytes # (Manual) Monocytes # (Manual) Eosinophils # (Manual) Basophils # (Manual) PT INR Fibrinogen dRVVT Confirm Interp Factor V Activity POC ABG pH POC ABG pCO2 POC ABG pO2 ABG pO2 ABG HCO3 ABG Base Excess ABG Hemoglobin Oxyhemoglobin Sodium Potassium Chloride Carbon Dioxide BUN Creatinine Glucose POC Glucose 150 H 146 H 167 H Lactic Acid Calcium Phosphorus Magnesium Direct Bilirubin AST ALT Alkaline Phosphatase Lactate Dehydrogenase Troponin T C-Reactive Protein Total Protein Albumin Prealbumin Triglycerides Cholesterol LDL Cholesterol Direct HDL Cholesterol Urine pH Urine WBC (Auto) Urine Creatinine Urine Total Protein Fluid Total Protein Vancomycin Trough Rheumatoid Factor Complement C4 Miscellaneous Test Crossmatch 12/15/16 12/16/16 12/16/16 23:34 05:25 11:24 WBC RBC Hgb Hct MCV MCH MCHC RDW Plt Count Lymph % (Auto) [place] % (Auto) Lymph # [place] # Baso # Seg Neutrophils % Seg Neuts % (Manual) Lymphocytes % (Manual) Monocytes % (Manual) Eosinophils % (Manual) Basophils % (Manual) Nucleated RBC % Seg Neutrophils # Seg Neutrophils # Man Lymphocytes # (Manual) Monocytes # (Manual) Eosinophils # (Manual) Basophils # (Manual) PT INR Fibrinogen dRVVT Confirm Interp Factor V Activity POC ABG pH POC ABG pCO2 POC ABG pO2 ABG pO2 ABG HCO3 ABG Base Excess ABG Hemoglobin Oxyhemoglobin Sodium Potassium Chloride Carbon Dioxide BUN Creatinine Glucose POC Glucose 127 H 139 H 165 H Lactic Acid Calcium Phosphorus Magnesium Direct Bilirubin AST ALT Alkaline Phosphatase Lactate Dehydrogenase Troponin T C-Reactive Protein Total Protein Albumin Prealbumin Triglycerides Cholesterol LDL Cholesterol Direct HDL Cholesterol Urine pH Urine WBC (Auto) Urine Creatinine Urine Total Protein Fluid Total Protein Vancomycin Trough Rheumatoid Factor Complement C4 Miscellaneous Test Crossmatch 12/16/16 12/16/16 12/16/16 15:30 16:25 17:31 WBC 17.8 H RBC 2.38 L Hgb 6.4 L Hct 20.3 L MCV MCH 27 L MCHC RDW 17.4 H Plt Count Lymph % (Auto) [place] % (Auto) Lymph # [place] # Baso # Seg Neutrophils % Seg Neuts % (Manual) Lymphocytes % (Manual) Monocytes % (Manual) 10.0 H Eosinophils % (Manual) Basophils % (Manual) Nucleated RBC % Seg Neutrophils # Seg Neutrophils # Man 8.5 H Lymphocytes # (Manual) Monocytes # (Manual) 1.8 H Eosinophils # (Manual) Basophils # (Manual) PT INR Fibrinogen dRVVT Confirm Interp Factor V Activity POC ABG pH POC ABG pCO2 POC ABG pO2 ABG pO2 ABG HCO3 ABG Base Excess ABG Hemoglobin Oxyhemoglobin Sodium Potassium Chloride Carbon Dioxide BUN Creatinine Glucose POC Glucose 176 H Lactic Acid Calcium Phosphorus Magnesium Direct Bilirubin AST ALT Alkaline Phosphatase Lactate Dehydrogenase Troponin T C-Reactive Protein Total Protein Albumin Prealbumin Triglycerides Cholesterol LDL Cholesterol Direct HDL Cholesterol Urine pH Urine WBC (Auto) Urine Creatinine Urine Total Protein Fluid Total Protein Vancomycin Trough Rheumatoid Factor Complement C4 Miscellaneous Test Crossmatch See Detail 12/17/16 12/17/16 12/17/16 00:14 04:00 05:00 WBC 20.0 H RBC 2.99 L Hgb 8.5 L Hct 25.7 L MCV MCH MCHC RDW 17.2 H Plt Count Lymph % (Auto) [place]nn % (Auto) Lymph # [place]nn # Baso # Seg Neutrophils % Seg Neuts % (Manual) Lymphocytes % (Manual) Monocytes % (Manual) Eosinophils % (Manual) Basophils % (Manual) Nucleated RBC % Seg Neutrophils # Seg Neutrophils # Man Lymphocytes # (Manual) Monocytes # (Manual) Eosinophils # (Manual) Basophils # (Manual) PT INR Fibrinogen dRVVT Confirm Interp Factor V Activity POC ABG pH POC ABG pCO2 POC ABG pO2 ABG pO2 ABG HCO3 ABG Base Excess ABG Hemoglobin Oxyhemoglobin Sodium Potassium Chloride 97.7 L Carbon Dioxide BUN 73 H Creatinine 1.7 H Glucose 136 H POC Glucose 148 H Lactic Acid Calcium Phosphorus 2.20 L Magnesium 2.70 H Direct Bilirubin AST ALT Alkaline Phosphatase Lactate Dehydrogenase Troponin T C-Reactive Protein Total Protein Albumin Prealbumin Triglycerides Cholesterol LDL Cholesterol Direct HDL Cholesterol Urine pH Urine WBC (Auto) Urine Creatinine Urine Total Protein Fluid Total Protein Vancomycin Trough Rheumatoid Factor Complement C4 Miscellaneous Test Crossmatch 12/17/16 12/17/16 12/17/16 05:39 12:50 16:32 WBC RBC Hgb Hct MCV MCH MCHC RDW Plt Count Lymph % (Auto) [place]nn % (Auto) Lymph # [place] # Baso # Seg Neutrophils % Seg Neuts % (Manual) Lymphocytes % (Manual) Monocytes % (Manual) Eosinophils % (Manual) Basophils % (Manual) Nucleated RBC % Seg Neutrophils # Seg Neutrophils # Man Lymphocytes # (Manual) Monocytes # (Manual) Eosinophils # (Manual) Basophils # (Manual) PT INR Fibrinogen dRVVT Confirm Interp Factor V Activity POC ABG pH POC ABG pCO2 POC ABG pO2 ABG pO2 ABG HCO3 ABG Base Excess ABG Hemoglobin Oxyhemoglobin Sodium Potassium Chloride Carbon Dioxide BUN Creatinine Glucose POC Glucose 162 H 146 H 169 H Lactic Acid Calcium Phosphorus Magnesium Direct Bilirubin AST ALT Alkaline Phosphatase Lactate Dehydrogenase Troponin T C-Reactive Protein Total Protein Albumin Prealbumin Triglycerides Cholesterol LDL Cholesterol Direct HDL Cholesterol Urine pH Urine WBC (Auto) Urine Creatinine Urine Total Protein Fluid Total Protein Vancomycin Trough Rheumatoid Factor Complement C4 Miscellaneous Test Crossmatch 12/17/16 12/18/16 12/18/16 23:57 05:00 05:32 WBC RBC Hgb Hct MCV MCH MCHC RDW Plt Count Lymph % (Auto) [place]nn % (Auto) Lymph # [place] # Baso # Seg Neutrophils % Seg Neuts % (Manual) Lymphocytes % (Manual) Monocytes % (Manual) Eosinophils % (Manual) Basophils % (Manual) Nucleated RBC % Seg Neutrophils # Seg Neutrophils # Man Lymphocytes # (Manual) Monocytes # (Manual) Eosinophils # (Manual) Basophils # (Manual) PT INR Fibrinogen dRVVT Confirm Interp Factor V Activity POC ABG pH POC ABG pCO2 POC ABG pO2 ABG pO2 ABG HCO3 ABG Base Excess ABG Hemoglobin Oxyhemoglobin Sodium Potassium Chloride 97.0 L Carbon Dioxide BUN 63 H Creatinine 1.4 H Glucose 174 H POC Glucose 145 H 201 H Lactic Acid Calcium Phosphorus 1.70 L D Magnesium Direct Bilirubin AST ALT Alkaline Phosphatase 257 H Lactate Dehydrogenase Troponin T C-Reactive Protein Total Protein 5.9 L Albumin 1.8 L Prealbumin Triglycerides Cholesterol LDL Cholesterol Direct HDL Cholesterol Urine pH Urine WBC (Auto) Urine Creatinine Urine Total Protein Fluid Total Protein Vancomycin Trough Rheumatoid Factor Complement C4 Miscellaneous Test Crossmatch 12/18/16 12/18/16 12/18/16 11:43 16:52 23:52 WBC RBC Hgb Hct MCV MCH MCHC RDW Plt Count Lymph % (Auto) [place]nn % (Auto) Lymph # [place] # Baso # Seg Neutrophils % Seg Neuts % (Manual) Lymphocytes % (Manual) Monocytes % (Manual) Eosinophils % (Manual) Basophils % (Manual) Nucleated RBC % Seg Neutrophils # Seg Neutrophils # Man Lymphocytes # (Manual) Monocytes # (Manual) Eosinophils # (Manual) Basophils # (Manual) PT INR Fibrinogen dRVVT Confirm Interp Factor V Activity POC ABG pH POC ABG pCO2 POC ABG pO2 ABG pO2 ABG HCO3 ABG Base Excess ABG Hemoglobin Oxyhemoglobin Sodium Potassium Chloride Carbon Dioxide BUN Creatinine Glucose POC Glucose 177 H 110 H 162 H Lactic Acid Calcium Phosphorus Magnesium Direct Bilirubin AST ALT Alkaline Phosphatase Lactate Dehydrogenase Troponin T C-Reactive Protein Total Protein Albumin Prealbumin Triglycerides Cholesterol LDL Cholesterol Direct HDL Cholesterol Urine pH Urine WBC (Auto) Urine Creatinine Urine Total Protein Fluid Total Protein Vancomycin Trough Rheumatoid Factor Complement C4 Miscellaneous Test Crossmatch 12/19/16 12/19/16 12/19/16 05:02 05:24 09:30 WBC 20.1 H RBC 2.73 L Hgb 7.6 L Hct 23.6 L MCV MCH MCHC RDW 17.6 H Plt Count Lymph % (Auto) [place] % (Auto) Lymph # [place] # Baso # Seg Neutrophils % Seg Neuts % (Manual) Lymphocytes % (Manual) 13.0 L Monocytes % (Manual) Eosinophils % (Manual) Basophils % (Manual) Nucleated RBC % 1.0 H Seg Neutrophils # Seg Neutrophils # Man 12.9 H Lymphocytes # (Manual) Monocytes # (Manual) 1.4 H Eosinophils # (Manual) Basophils # (Manual) 0.2 H PT INR Fibrinogen dRVVT Confirm Interp Factor V Activity POC ABG pH POC ABG pCO2 POC ABG pO2 ABG pO2 ABG HCO3 ABG Base Excess ABG Hemoglobin Oxyhemoglobin Sodium Potassium Chloride 97.8 L Carbon Dioxide BUN 84 H Creatinine 1.6 H Glucose 133 H POC Glucose 134 H Lactic Acid Calcium Phosphorus Magnesium Direct Bilirubin AST ALT Alkaline Phosphatase Lactate Dehydrogenase Troponin T C-Reactive Protein Total Protein Albumin Prealbumin Triglycerides Cholesterol LDL Cholesterol Direct HDL Cholesterol Urine pH Urine WBC (Auto) Urine Creatinine Urine Total Protein Fluid Total Protein Vancomycin Trough Rheumatoid Factor Complement C4 Miscellaneous Test Crossmatch 12/19/16 12/19/16 12/19/16 09:36 11:12 18:29 WBC RBC Hgb Hct MCV MCH MCHC RDW Plt Count Lymph % (Auto) [place]nn % (Auto) Lymph # [place] # Baso # Seg Neutrophils % Seg Neuts % (Manual) Lymphocytes % (Manual) Monocytes % (Manual) Eosinophils % (Manual) Basophils % (Manual) Nucleated RBC % Seg Neutrophils # Seg Neutrophils # Man Lymphocytes # (Manual) Monocytes # (Manual) Eosinophils # (Manual) Basophils # (Manual) PT INR Fibrinogen dRVVT Confirm Interp Factor V Activity POC ABG pH 7.503 H POC ABG pCO2 30.1 L POC ABG pO2 ABG pO2 ABG HCO3 ABG Base Excess ABG Hemoglobin Oxyhemoglobin Sodium Potassium Chloride Carbon Dioxide BUN Creatinine Glucose POC Glucose 138 H 156 H Lactic Acid Calcium Phosphorus Magnesium Direct Bilirubin AST ALT Alkaline Phosphatase Lactate Dehydrogenase Troponin T C-Reactive Protein Total Protein Albumin Prealbumin Triglycerides Cholesterol LDL Cholesterol Direct HDL Cholesterol Urine pH Urine WBC (Auto) Urine Creatinine Urine Total Protein Fluid Total Protein Vancomycin Trough Rheumatoid Factor Complement C4 Miscellaneous Test Crossmatch 12/20/16 12/20/16 12/20/16 00:03 06:17 07:07 WBC RBC Hgb Hct MCV MCH MCHC RDW Plt Count Lymph % (Auto) [place]nn % (Auto) Lymph # [place] # Baso # Seg Neutrophils % Seg Neuts % (Manual) Lymphocytes % (Manual) Monocytes % (Manual) Eosinophils % (Manual) Basophils % (Manual) Nucleated RBC % Seg Neutrophils # Seg Neutrophils # Man Lymphocytes # (Manual) Monocytes # (Manual) Eosinophils # (Manual) Basophils # (Manual) PT INR Fibrinogen dRVVT Confirm Interp Factor V Activity POC ABG pH POC ABG pCO2 POC ABG pO2 ABG pO2 ABG HCO3 ABG Base Excess ABG Hemoglobin Oxyhemoglobin Sodium Potassium Chloride 97.1 L Carbon Dioxide 20 L BUN 97 H Creatinine 1.8 H Glucose 153 H POC Glucose 152 H 175 H Lactic Acid Calcium Phosphorus Magnesium Direct Bilirubin AST ALT Alkaline Phosphatase Lactate Dehydrogenase Troponin T C-Reactive Protein Total Protein Albumin Prealbumin Triglycerides Cholesterol LDL Cholesterol Direct HDL Cholesterol Urine pH Urine WBC (Auto) Urine Creatinine Urine Total Protein Fluid Total Protein Vancomycin Trough Rheumatoid Factor Complement C4 Miscellaneous Test Crossmatch 12/20/16 12/20/16 12/20/16 12:00 17:42 23:53 WBC RBC Hgb Hct MCV MCH MCHC RDW Plt Count Lymph % (Auto) [place]nn % (Auto) Lymph # [place] # Baso # Seg Neutrophils % Seg Neuts % (Manual) Lymphocytes % (Manual) Monocytes % (Manual) Eosinophils % (Manual) Basophils % (Manual) Nucleated RBC % Seg Neutrophils # Seg Neutrophils # Man Lymphocytes # (Manual) Monocytes # (Manual) Eosinophils # (Manual) Basophils # (Manual) PT INR Fibrinogen dRVVT Confirm Interp Factor V Activity POC ABG pH POC ABG pCO2 POC ABG pO2 ABG pO2 ABG HCO3 ABG Base Excess ABG Hemoglobin Oxyhemoglobin Sodium Potassium Chloride Carbon Dioxide BUN Creatinine Glucose POC Glucose 141 H 156 H 132 H Lactic Acid Calcium Phosphorus Magnesium Direct Bilirubin AST ALT Alkaline Phosphatase Lactate Dehydrogenase Troponin T C-Reactive Protein Total Protein Albumin Prealbumin Triglycerides Cholesterol LDL Cholesterol Direct HDL Cholesterol Urine pH Urine WBC (Auto) Urine Creatinine Urine Total Protein Fluid Total Protein Vancomycin Trough Rheumatoid Factor Complement C4 Miscellaneous Test Crossmatch 12/21/16 12/21/16 12/21/16 05:49 08:50 12:19 WBC RBC Hgb Hct MCV MCH MCHC RDW Plt Count Lymph % (Auto) [place] % (Auto) Lymph # [place] # Baso # Seg Neutrophils % Seg Neuts % (Manual) Lymphocytes % (Manual) Monocytes % (Manual) Eosinophils % (Manual) Basophils % (Manual) Nucleated RBC % Seg Neutrophils # Seg Neutrophils # Man Lymphocytes # (Manual) Monocytes # (Manual) Eosinophils # (Manual) Basophils # (Manual) PT INR Fibrinogen dRVVT Confirm Interp Factor V Activity POC ABG pH POC ABG pCO2 POC ABG pO2 ABG pO2 ABG HCO3 ABG Base Excess ABG Hemoglobin Oxyhemoglobin Sodium Potassium 5.2 H D Chloride Carbon Dioxide BUN 63 H Creatinine Glucose 122 H POC Glucose 132 H 136 H Lactic Acid Calcium 8.3 L Phosphorus Magnesium Direct Bilirubin AST ALT Alkaline Phosphatase Lactate Dehydrogenase Troponin T C-Reactive Protein Total Protein Albumin Prealbumin Triglycerides Cholesterol LDL Cholesterol Direct HDL Cholesterol Urine pH Urine WBC (Auto) Urine Creatinine Urine Total Protein Fluid Total Protein Vancomycin Trough Rheumatoid Factor Complement C4 Miscellaneous Test Crossmatch 12/21/16 12/21/16 12/22/16 17:22 23:58 05:49 WBC RBC Hgb Hct MCV MCH MCHC RDW Plt Count Lymph % (Auto) [place] % (Auto) Lymph # [place] # Baso # Seg Neutrophils % Seg Neuts % (Manual) Lymphocytes % (Manual) Monocytes % (Manual) Eosinophils % (Manual) Basophils % (Manual) Nucleated RBC % Seg Neutrophils # Seg Neutrophils # Man Lymphocytes # (Manual) Monocytes # (Manual) Eosinophils # (Manual) Basophils # (Manual) PT INR Fibrinogen dRVVT Confirm Interp Factor V Activity POC ABG pH POC ABG pCO2 POC ABG pO2 ABG pO2 ABG HCO3 ABG Base Excess ABG Hemoglobin Oxyhemoglobin Sodium Potassium Chloride Carbon Dioxide BUN Creatinine Glucose POC Glucose 135 H 149 H 140 H Lactic Acid Calcium Phosphorus Magnesium Direct Bilirubin AST ALT Alkaline Phosphatase Lactate Dehydrogenase Troponin T C-Reactive Protein Total Protein Albumin Prealbumin Triglycerides Cholesterol LDL Cholesterol Direct HDL Cholesterol Urine pH Urine WBC (Auto) Urine Creatinine Urine Total Protein Fluid Total Protein Vancomycin Trough Rheumatoid Factor Complement C4 Miscellaneous Test Crossmatch 12/22/16 12/22/16 12/22/16 06:10 11:17 17:31 WBC RBC Hgb Hct MCV MCH MCHC RDW Plt Count Lymph % (Auto) [place] % (Auto) Lymph # [place] # Baso # Seg Neutrophils % Seg Neuts % (Manual) Lymphocytes % (Manual) Monocytes % (Manual) Eosinophils % (Manual) Basophils % (Manual) Nucleated RBC % Seg Neutrophils # Seg Neutrophils # Man Lymphocytes # (Manual) Monocytes # (Manual) Eosinophils # (Manual) Basophils # (Manual) PT INR Fibrinogen dRVVT Confirm Interp Factor V Activity POC ABG pH POC ABG pCO2 POC ABG pO2 ABG pO2 ABG HCO3 ABG Base Excess ABG Hemoglobin Oxyhemoglobin Sodium Potassium Chloride Carbon Dioxide BUN 76 H Creatinine 1.5 H Glucose 241 H POC Glucose 193 H 148 H Lactic Acid Calcium Phosphorus Magnesium Direct Bilirubin AST ALT Alkaline Phosphatase Lactate Dehydrogenase Troponin T C-Reactive Protein Total Protein Albumin Prealbumin Triglycerides Cholesterol LDL Cholesterol Direct HDL Cholesterol Urine pH Urine WBC (Auto) Urine Creatinine Urine Total Protein Fluid Total Protein Vancomycin Trough Rheumatoid Factor Complement C4 Miscellaneous Test Crossmatch 12/22/16 12/23/16 12/23/16 23:58 05:00 05:26 WBC RBC Hgb Hct MCV MCH MCHC RDW Plt Count Lymph % (Auto) [place]nn % (Auto) Lymph # [place] # Baso # Seg Neutrophils % Seg Neuts % (Manual) Lymphocytes % (Manual) Monocytes % (Manual) Eosinophils % (Manual) Basophils % (Manual) Nucleated RBC % Seg Neutrophils # Seg Neutrophils # Man Lymphocytes # (Manual) Monocytes # (Manual) Eosinophils # (Manual) Basophils # (Manual) PT INR Fibrinogen dRVVT Confirm Interp Factor V Activity POC ABG pH POC ABG pCO2 POC ABG pO2 ABG pO2 ABG HCO3 ABG Base Excess ABG Hemoglobin Oxyhemoglobin Sodium Potassium Chloride Carbon Dioxide BUN 49 H Creatinine Glucose 143 H POC Glucose 165 H 154 H Lactic Acid Calcium 8.2 L Phosphorus Magnesium 1.60 L Direct Bilirubin AST ALT Alkaline Phosphatase Lactate Dehydrogenase Troponin T C-Reactive Protein Total Protein Albumin Prealbumin Triglycerides Cholesterol LDL Cholesterol Direct HDL Cholesterol Urine pH Urine WBC (Auto) Urine Creatinine Urine Total Protein Fluid Total Protein Vancomycin Trough Rheumatoid Factor Complement C4 Miscellaneous Test Crossmatch 12/23/16 12/23/16 12/24/16 12:35 17:01 00:01 WBC RBC Hgb Hct MCV MCH MCHC RDW Plt Count Lymph % (Auto) [place] % (Auto) Lymph # [place] # Baso # Seg Neutrophils % Seg Neuts % (Manual) Lymphocytes % (Manual) Monocytes % (Manual) Eosinophils % (Manual) Basophils % (Manual) Nucleated RBC % Seg Neutrophils # Seg Neutrophils # Man Lymphocytes # (Manual) Monocytes # (Manual) Eosinophils # (Manual) Basophils # (Manual) PT INR Fibrinogen dRVVT Confirm Interp Factor V Activity POC ABG pH POC ABG pCO2 POC ABG pO2 ABG pO2 ABG HCO3 ABG Base Excess ABG Hemoglobin Oxyhemoglobin Sodium Potassium Chloride Carbon Dioxide BUN Creatinine Glucose POC Glucose 164 H 149 H 135 H Lactic Acid Calcium Phosphorus Magnesium Direct Bilirubin AST ALT Alkaline Phosphatase Lactate Dehydrogenase Troponin T C-Reactive Protein Total Protein Albumin Prealbumin Triglycerides Cholesterol LDL Cholesterol Direct HDL Cholesterol Urine pH Urine WBC (Auto) Urine Creatinine Urine Total Protein Fluid Total Protein Vancomycin Trough Rheumatoid Factor Complement C4 Miscellaneous Test Crossmatch 12/24/16 12/24/16 12/24/16 05:41 07:01 11:38 WBC RBC Hgb Hct MCV MCH MCHC RDW Plt Count Lymph % (Auto) [place]nn % (Auto) Lymph # [place] # Baso # Seg Neutrophils % Seg Neuts % (Manual) Lymphocytes % (Manual) Monocytes % (Manual) Eosinophils % (Manual) Basophils % (Manual) Nucleated RBC % Seg Neutrophils # Seg Neutrophils # Man Lymphocytes # (Manual) Monocytes # (Manual) Eosinophils # (Manual) Basophils # (Manual) PT INR Fibrinogen dRVVT Confirm Interp Factor V Activity POC ABG pH POC ABG pCO2 POC ABG pO2 ABG pO2 ABG HCO3 ABG Base Excess ABG Hemoglobin Oxyhemoglobin Sodium Potassium Chloride Carbon Dioxide BUN 72 H Creatinine 1.3 H Glucose 130 H POC Glucose 132 H 156 H Lactic Acid Calcium 8.2 L Phosphorus Magnesium Direct Bilirubin AST ALT Alkaline Phosphatase Lactate Dehydrogenase Troponin T C-Reactive Protein Total Protein Albumin Prealbumin Triglycerides Cholesterol LDL Cholesterol Direct HDL Cholesterol Urine pH Urine WBC (Auto) Urine Creatinine Urine Total Protein Fluid Total Protein Vancomycin Trough Rheumatoid Factor Complement C4 Miscellaneous Test Crossmatch 12/24/16 12/25/16 12/25/16 17:53 00:23 05:45 WBC RBC Hgb Hct MCV MCH MCHC RDW Plt Count Lymph % (Auto) [place] % (Auto) Lymph # [place] # Baso # Seg Neutrophils % Seg Neuts % (Manual) Lymphocytes % (Manual) Monocytes % (Manual) Eosinophils % (Manual) Basophils % (Manual) Nucleated RBC % Seg Neutrophils # Seg Neutrophils # Man Lymphocytes # (Manual) Monocytes # (Manual) Eosinophils # (Manual) Basophils # (Manual) PT INR Fibrinogen dRVVT Confirm Interp Factor V Activity POC ABG pH POC ABG pCO2 POC ABG pO2 ABG pO2 ABG HCO3 ABG Base Excess ABG Hemoglobin Oxyhemoglobin Sodium 146 H Potassium Chloride Carbon Dioxide BUN 51 H Creatinine Glucose 109 H POC Glucose 169 H 117 H Lactic Acid Calcium Phosphorus Magnesium Direct Bilirubin AST ALT Alkaline Phosphatase Lactate Dehydrogenase Troponin T C-Reactive Protein Total Protein Albumin Prealbumin Triglycerides Cholesterol LDL Cholesterol Direct HDL Cholesterol Urine pH Urine WBC (Auto) Urine Creatinine Urine Total Protein Fluid Total Protein Vancomycin Trough Rheumatoid Factor Complement C4 Miscellaneous Test Crossmatch 12/25/16 12/25/16 12/25/16 06:43 11:29 17:14 WBC RBC Hgb Hct MCV MCH MCHC RDW Plt Count Lymph % (Auto) [place] % (Auto) Lymph # [place] # Baso # Seg Neutrophils % Seg Neuts % (Manual) Lymphocytes % (Manual) Monocytes % (Manual) Eosinophils % (Manual) Basophils % (Manual) Nucleated RBC % Seg Neutrophils # Seg Neutrophils # Man Lymphocytes # (Manual) Monocytes # (Manual) Eosinophils # (Manual) Basophils # (Manual) PT INR Fibrinogen dRVVT Confirm Interp Factor V Activity POC ABG pH POC ABG pCO2 POC ABG pO2 ABG pO2 ABG HCO3 ABG Base Excess ABG Hemoglobin Oxyhemoglobin Sodium Potassium Chloride Carbon Dioxide BUN Creatinine Glucose POC Glucose 117 H 128 H 120 H Lactic Acid Calcium Phosphorus Magnesium Direct Bilirubin AST ALT Alkaline Phosphatase Lactate Dehydrogenase Troponin T C-Reactive Protein Total Protein Albumin Prealbumin Triglycerides Cholesterol LDL Cholesterol Direct HDL Cholesterol Urine pH Urine WBC (Auto) Urine Creatinine Urine Total Protein Fluid Total Protein Vancomycin Trough Rheumatoid Factor Complement C4 Miscellaneous Test Crossmatch 12/25/16 12/26/16 12/26/16 23:54 05:40 05:50 WBC 16.2 H RBC 2.32 L Hgb 6.2 L Hct 20.1 L MCV MCH 27 L MCHC RDW 18.6 H Plt Count Lymph % (Auto) [place] % (Auto) Lymph # [place] # Baso # Seg Neutrophils % Seg Neuts % (Manual) Lymphocytes % (Manual) Monocytes % (Manual) Eosinophils % (Manual) Basophils % (Manual) Nucleated RBC % Seg Neutrophils # Seg Neutrophils # Man Lymphocytes # (Manual) Monocytes # (Manual) Eosinophils # (Manual) Basophils # (Manual) PT INR Fibrinogen dRVVT Confirm Interp Factor V Activity POC ABG pH POC ABG pCO2 POC ABG pO2 ABG pO2 ABG HCO3 ABG Base Excess ABG Hemoglobin Oxyhemoglobin Sodium Potassium Chloride Carbon Dioxide BUN Creatinine Glucose POC Glucose 126 H 132 H Lactic Acid Calcium Phosphorus Magnesium Direct Bilirubin AST ALT Alkaline Phosphatase Lactate Dehydrogenase Troponin T C-Reactive Protein Total Protein Albumin Prealbumin Triglycerides Cholesterol LDL Cholesterol Direct HDL Cholesterol Urine pH Urine WBC (Auto) Urine Creatinine Urine Total Protein Fluid Total Protein Vancomycin Trough Rheumatoid Factor Complement C4 Miscellaneous Test Crossmatch 12/26/16 12/26/16 12/26/16 05:50 12:17 12:33 WBC RBC Hgb Hct MCV MCH MCHC RDW Plt Count Lymph % (Auto) [place] % (Auto) Lymph # [place] # Baso # Seg Neutrophils % Seg Neuts % (Manual) Lymphocytes % (Manual) Monocytes % (Manual) Eosinophils % (Manual) Basophils % (Manual) Nucleated RBC % Seg Neutrophils # Seg Neutrophils # Man Lymphocytes # (Manual) Monocytes # (Manual) Eosinophils # (Manual) Basophils # (Manual) PT INR Fibrinogen dRVVT Confirm Interp Factor V Activity POC ABG pH POC ABG pCO2 POC ABG pO2 ABG pO2 ABG HCO3 ABG Base Excess ABG Hemoglobin Oxyhemoglobin Sodium Potassium Chloride Carbon Dioxide BUN 73 H Creatinine 1.3 H Glucose 113 H POC Glucose 117 H Lactic Acid Calcium Phosphorus Magnesium Direct Bilirubin AST ALT Alkaline Phosphatase Lactate Dehydrogenase Troponin T C-Reactive Protein Total Protein Albumin Prealbumin Triglycerides Cholesterol LDL Cholesterol Direct HDL Cholesterol Urine pH Urine WBC (Auto) Urine Creatinine Urine Total Protein Fluid Total Protein Vancomycin Trough Rheumatoid Factor Complement C4 Miscellaneous Test Crossmatch See Detail 12/26/16 12/26/16 12/27/16 20:00 23:21 05:00 WBC RBC Hgb 8.4 L Hct 26.3 L D MCV MCH MCHC RDW Plt Count Lymph % (Auto) [place] % (Auto) Lymph # [place] # Baso # Seg Neutrophils % Seg Neuts % (Manual) Lymphocytes % (Manual) Monocytes % (Manual) Eosinophils % (Manual) Basophils % (Manual) Nucleated RBC % Seg Neutrophils # Seg Neutrophils # Man Lymphocytes # (Manual) Monocytes # (Manual) Eosinophils # (Manual) Basophils # (Manual) PT INR Fibrinogen dRVVT Confirm Interp Factor V Activity POC ABG pH POC ABG pCO2 POC ABG pO2 ABG pO2 ABG HCO3 ABG Base Excess ABG Hemoglobin Oxyhemoglobin Sodium Potassium Chloride Carbon Dioxide BUN 85 H Creatinine 1.6 H Glucose 118 H POC Glucose 124 H Lactic Acid Calcium Phosphorus 4.80 H Magnesium Direct Bilirubin AST ALT Alkaline Phosphatase Lactate Dehydrogenase Troponin T C-Reactive Protein Total Protein Albumin Prealbumin Triglycerides Cholesterol LDL Cholesterol Direct HDL Cholesterol Urine pH Urine WBC (Auto) Urine Creatinine Urine Total Protein Fluid Total Protein Vancomycin Trough Rheumatoid Factor Complement C4 Miscellaneous Test Crossmatch 12/27/16 12/27/16 12/27/16 05:00 05:35 12:24 WBC RBC Hgb 7.6 L Hct 22.8 L MCV MCH MCHC RDW Plt Count Lymph % (Auto) [place] % (Auto) Lymph # [place] # Baso # Seg Neutrophils % Seg Neuts % (Manual) Lymphocytes % (Manual) Monocytes % (Manual) Eosinophils % (Manual) Basophils % (Manual) Nucleated RBC % Seg Neutrophils # Seg Neutrophils # Man Lymphocytes # (Manual) Monocytes # (Manual) Eosinophils # (Manual) Basophils # (Manual) PT INR Fibrinogen dRVVT Confirm Interp Factor V Activity POC ABG pH POC ABG pCO2 POC ABG pO2 ABG pO2 ABG HCO3 ABG Base Excess ABG Hemoglobin Oxyhemoglobin Sodium Potassium Chloride Carbon Dioxide BUN Creatinine Glucose POC Glucose 115 H 131 H Lactic Acid Calcium Phosphorus Magnesium Direct Bilirubin AST ALT Alkaline Phosphatase Lactate Dehydrogenase Troponin T C-Reactive Protein Total Protein Albumin Prealbumin Triglycerides Cholesterol LDL Cholesterol Direct HDL Cholesterol Urine pH Urine WBC (Auto) Urine Creatinine Urine Total Protein Fluid Total Protein Vancomycin Trough Rheumatoid Factor Complement C4 Miscellaneous Test Crossmatch 12/27/16 12/28/16 12/28/16 17:16 00:18 04:00 WBC RBC Hgb Hct MCV MCH MCHC RDW Plt Count Lymph % (Auto) [place] % (Auto) Lymph # [place] # Baso # Seg Neutrophils % Seg Neuts % (Manual) Lymphocytes % (Manual) Monocytes % (Manual) Eosinophils % (Manual) Basophils % (Manual) Nucleated RBC % Seg Neutrophils # Seg Neutrophils # Man Lymphocytes # (Manual) Monocytes # (Manual) Eosinophils # (Manual) Basophils # (Manual) PT INR Fibrinogen dRVVT Confirm Interp Factor V Activity POC ABG pH POC ABG pCO2 POC ABG pO2 ABG pO2 ABG HCO3 ABG Base Excess ABG Hemoglobin Oxyhemoglobin Sodium Potassium 3.5 L Chloride Carbon Dioxide BUN 57 H Creatinine Glucose 118 H POC Glucose 136 H 120 H Lactic Acid Calcium 8.3 L Phosphorus Magnesium Direct Bilirubin AST ALT Alkaline Phosphatase Lactate Dehydrogenase Troponin T C-Reactive Protein Total Protein Albumin Prealbumin Triglycerides Cholesterol LDL Cholesterol Direct HDL Cholesterol Urine pH Urine WBC (Auto) Urine Creatinine Urine Total Protein Fluid Total Protein Vancomycin Trough Rheumatoid Factor Complement C4 Miscellaneous Test Crossmatch 12/28/16 12/28/16 12/28/16 04:00 05:11 08:30 WBC 17.0 H RBC 2.58 L Hgb 7.1 L Hct 22.0 L MCV MCH MCHC RDW 17.6 H Plt Count Lymph % (Auto) 12.2 L [place] % (Auto) Lymph # [place] # 1.1 H Baso # Seg Neutrophils % 80.5 H Seg Neuts % (Manual) Lymphocytes % (Manual) Monocytes % (Manual) Eosinophils % (Manual) Basophils % (Manual) Nucleated RBC % Seg Neutrophils # 13.7 H Seg Neutrophils # Man Lymphocytes # (Manual) Monocytes # (Manual) Eosinophils # (Manual) Basophils # (Manual) PT 16.1 H INR 1.23 H Fibrinogen dRVVT Confirm Interp Factor V Activity POC ABG pH POC ABG pCO2 POC ABG pO2 ABG pO2 ABG HCO3 ABG Base Excess ABG Hemoglobin Oxyhemoglobin Sodium Potassium Chloride Carbon Dioxide BUN Creatinine Glucose POC Glucose 122 H Lactic Acid Calcium Phosphorus Magnesium Direct Bilirubin AST ALT Alkaline Phosphatase Lactate Dehydrogenase Troponin T C-Reactive Protein Total Protein Albumin Prealbumin Triglycerides Cholesterol LDL Cholesterol Direct HDL Cholesterol Urine pH Urine WBC (Auto) Urine Creatinine Urine Total Protein Fluid Total Protein Vancomycin Trough Rheumatoid Factor Complement C4 Miscellaneous Test Crossmatch 12/28/16 12/28/16 12/28/16 12:27 16:32 23:46 WBC RBC Hgb Hct MCV MCH MCHC RDW Plt Count Lymph % (Auto) [place]nn % (Auto) Lymph # [place]nn # Baso # Seg Neutrophils % Seg Neuts % (Manual) Lymphocytes % (Manual) Monocytes % (Manual) Eosinophils % (Manual) Basophils % (Manual) Nucleated RBC % Seg Neutrophils # Seg Neutrophils # Man Lymphocytes # (Manual) Monocytes # (Manual) Eosinophils # (Manual) Basophils # (Manual) PT INR Fibrinogen dRVVT Confirm Interp Factor V Activity POC ABG pH POC ABG pCO2 POC ABG pO2 ABG pO2 ABG HCO3 ABG Base Excess ABG Hemoglobin Oxyhemoglobin Sodium Potassium Chloride Carbon Dioxide BUN Creatinine Glucose POC Glucose 127 H 117 H 108 H Lactic Acid Calcium Phosphorus Magnesium Direct Bilirubin AST ALT Alkaline Phosphatase Lactate Dehydrogenase Troponin T C-Reactive Protein Total Protein Albumin Prealbumin Triglycerides Cholesterol LDL Cholesterol Direct HDL Cholesterol Urine pH Urine WBC (Auto) Urine Creatinine Urine Total Protein Fluid Total Protein Vancomycin Trough Rheumatoid Factor Complement C4 Miscellaneous Test Crossmatch 12/29/16 12/29/16 12/29/16 05:15 05:15 05:32 WBC RBC Hgb Hct MCV MCH MCHC RDW Plt Count Lymph % (Auto) [place]nn % (Auto) Lymph # [place]nn # Baso # Seg Neutrophils % Seg Neuts % (Manual) Lymphocytes % (Manual) Monocytes % (Manual) Eosinophils % (Manual) Basophils % (Manual) Nucleated RBC % Seg Neutrophils # Seg Neutrophils # Man Lymphocytes # (Manual) Monocytes # (Manual) Eosinophils # (Manual) Basophils # (Manual) PT INR Fibrinogen dRVVT Confirm Interp Factor V Activity POC ABG pH POC ABG pCO2 POC ABG pO2 ABG pO2 ABG HCO3 ABG Base Excess ABG Hemoglobin Oxyhemoglobin Sodium Potassium Chloride Carbon Dioxide BUN 74 H Creatinine 1.6 H Glucose 111 H POC Glucose 123 H Lactic Acid Calcium Phosphorus Magnesium Direct Bilirubin AST ALT Alkaline Phosphatase Lactate Dehydrogenase Troponin T C-Reactive Protein Total Protein Albumin Prealbumin 0.110 L Triglycerides Cholesterol LDL Cholesterol Direct HDL Cholesterol Urine pH Urine WBC (Auto) Urine Creatinine Urine Total Protein Fluid Total Protein Vancomycin Trough Rheumatoid Factor Complement C4 Miscellaneous Test Crossmatch 12/29/16 12/29/16 12/29/16 11:43 13:45 14:00 WBC 13.8 H RBC 2.26 L Hgb 6.3 L Hct 20.4 L MCV MCH MCHC RDW 18.3 H Plt Count Lymph % (Auto) [place]nn % (Auto) Lymph # [place]nn # 0.9 H Baso # Seg Neutrophils % 78.6 H Seg Neuts % (Manual) Lymphocytes % (Manual) Monocytes % (Manual) Eosinophils % (Manual) Basophils % (Manual) Nucleated RBC % Seg Neutrophils # 10.8 H Seg Neutrophils # Man Lymphocytes # (Manual) Monocytes # (Manual) Eosinophils # (Manual) Basophils # (Manual) PT INR Fibrinogen dRVVT Confirm Interp Factor V Activity POC ABG pH POC ABG pCO2 POC ABG pO2 ABG pO2 ABG HCO3 ABG Base Excess ABG Hemoglobin Oxyhemoglobin Sodium Potassium Chloride Carbon Dioxide BUN Creatinine Glucose POC Glucose 133 H Lactic Acid Calcium Phosphorus Magnesium Direct Bilirubin AST ALT Alkaline Phosphatase Lactate Dehydrogenase Troponin T C-Reactive Protein Total Protein Albumin Prealbumin Triglycerides Cholesterol LDL Cholesterol Direct HDL Cholesterol Urine pH Urine WBC (Auto) Urine Creatinine Urine Total Protein Fluid Total Protein Vancomycin Trough Rheumatoid Factor Complement C4 Miscellaneous Test Crossmatch See Detail 12/29/16 12/29/16 12/29/16 17:03 23:15 23:22 WBC RBC Hgb 7.3 L Hct 22.3 L MCV MCH MCHC RDW Plt Count Lymph % (Auto) [place]nn % (Auto) Lymph # [place] # Baso # Seg Neutrophils % Seg Neuts % (Manual) Lymphocytes % (Manual) Monocytes % (Manual) Eosinophils % (Manual) Basophils % (Manual) Nucleated RBC % Seg Neutrophils # Seg Neutrophils # Man Lymphocytes # (Manual) Monocytes # (Manual) Eosinophils # (Manual) Basophils # (Manual) PT INR Fibrinogen dRVVT Confirm Interp Factor V Activity POC ABG pH POC ABG pCO2 POC ABG pO2 ABG pO2 ABG HCO3 ABG Base Excess ABG Hemoglobin Oxyhemoglobin Sodium Potassium Chloride Carbon Dioxide BUN Creatinine Glucose POC Glucose 139 H 120 H Lactic Acid Calcium Phosphorus Magnesium Direct Bilirubin AST ALT Alkaline Phosphatase Lactate Dehydrogenase Troponin T C-Reactive Protein Total Protein Albumin Prealbumin Triglycerides Cholesterol LDL Cholesterol Direct HDL Cholesterol Urine pH Urine WBC (Auto) Urine Creatinine Urine Total Protein Fluid Total Protein Vancomycin Trough Rheumatoid Factor Complement C4 Miscellaneous Test Crossmatch 12/30/16 12/30/16 12/30/16 04:20 04:20 05:43 WBC 15.6 H RBC 2.81 L Hgb 8.0 L Hct 24.0 L MCV MCH MCHC RDW 16.9 H Plt Count Lymph % (Auto) [place]nn % (Auto) Lymph # [place] # 1.0 H Baso # Seg Neutrophils % 76.2 H Seg Neuts % (Manual) Lymphocytes % (Manual) Monocytes % (Manual) Eosinophils % (Manual) Basophils % (Manual) Nucleated RBC % Seg Neutrophils # 11.9 H Seg Neutrophils # Man Lymphocytes # (Manual) Monocytes # (Manual) Eosinophils # (Manual) Basophils # (Manual) PT INR Fibrinogen dRVVT Confirm Interp Factor V Activity POC ABG pH POC ABG pCO2 POC ABG pO2 ABG pO2 ABG HCO3 ABG Base Excess ABG Hemoglobin Oxyhemoglobin Sodium Potassium Chloride Carbon Dioxide BUN 87 H Creatinine 1.8 H Glucose 119 H POC Glucose 115 H Lactic Acid Calcium Phosphorus Magnesium Direct Bilirubin AST ALT Alkaline Phosphatase Lactate Dehydrogenase Troponin T C-Reactive Protein Total Protein Albumin Prealbumin Triglycerides Cholesterol LDL Cholesterol Direct HDL Cholesterol Urine pH Urine WBC (Auto) Urine Creatinine Urine Total Protein Fluid Total Protein Vancomycin Trough Rheumatoid Factor Complement C4 Miscellaneous Test Crossmatch 12/30/16 12/30/16 12/31/16 17:27 23:21 04:00 WBC RBC Hgb Hct MCV MCH MCHC RDW Plt Count Lymph % (Auto) [place]nn % (Auto) Lymph # [place] # Baso # Seg Neutrophils % Seg Neuts % (Manual) Lymphocytes % (Manual) Monocytes % (Manual) Eosinophils % (Manual) Basophils % (Manual) Nucleated RBC % Seg Neutrophils # Seg Neutrophils # Man Lymphocytes # (Manual) Monocytes # (Manual) Eosinophils # (Manual) Basophils # (Manual) PT INR Fibrinogen dRVVT Confirm Interp Factor V Activity POC ABG pH POC ABG pCO2 POC ABG pO2 ABG pO2 ABG HCO3 ABG Base Excess ABG Hemoglobin Oxyhemoglobin Sodium Potassium Chloride Carbon Dioxide BUN 59 H Creatinine Glucose 298 H POC Glucose 144 H 125 H Lactic Acid Calcium Phosphorus Magnesium Direct Bilirubin AST ALT Alkaline Phosphatase Lactate Dehydrogenase Troponin T C-Reactive Protein Total Protein Albumin Prealbumin Triglycerides Cholesterol LDL Cholesterol Direct HDL Cholesterol Urine pH Urine WBC (Auto) Urine Creatinine Urine Total Protein Fluid Total Protein Vancomycin Trough Rheumatoid Factor Complement C4 Miscellaneous Test Crossmatch 12/31/16 12/31/16 12/31/16 05:11 12:18 18:17 WBC RBC Hgb Hct MCV MCH MCHC RDW Plt Count Lymph % (Auto) [place]nn % (Auto) Lymph # [place] # Baso # Seg Neutrophils % Seg Neuts % (Manual) Lymphocytes % (Manual) Monocytes % (Manual) Eosinophils % (Manual) Basophils % (Manual) Nucleated RBC % Seg Neutrophils # Seg Neutrophils # Man Lymphocytes # (Manual) Monocytes # (Manual) Eosinophils # (Manual) Basophils # (Manual) PT INR Fibrinogen dRVVT Confirm Interp Factor V Activity POC ABG pH POC ABG pCO2 POC ABG pO2 ABG pO2 ABG HCO3 ABG Base Excess ABG Hemoglobin Oxyhemoglobin Sodium Potassium Chloride Carbon Dioxide BUN Creatinine Glucose POC Glucose 167 H 125 H 133 H Lactic Acid Calcium Phosphorus Magnesium Direct Bilirubin AST ALT Alkaline Phosphatase Lactate Dehydrogenase Troponin T C-Reactive Protein Total Protein Albumin Prealbumin Triglycerides Cholesterol LDL Cholesterol Direct HDL Cholesterol Urine pH Urine WBC (Auto) Urine Creatinine Urine Total Protein Fluid Total Protein Vancomycin Trough Rheumatoid Factor Complement C4 Miscellaneous Test Crossmatch 12/31/16 01/01/17 01/01/17 23:55 05:00 05:12 WBC RBC Hgb Hct MCV MCH MCHC RDW Plt Count Lymph % (Auto) [place]nn % (Auto) Lymph # [place] # Baso # Seg Neutrophils % Seg Neuts % (Manual) Lymphocytes % (Manual) Monocytes % (Manual) Eosinophils % (Manual) Basophils % (Manual) Nucleated RBC % Seg Neutrophils # Seg Neutrophils # Man Lymphocytes # (Manual) Monocytes # (Manual) Eosinophils # (Manual) Basophils # (Manual) PT INR Fibrinogen dRVVT Confirm Interp Factor V Activity POC ABG pH POC ABG pCO2 POC ABG pO2 ABG pO2 ABG HCO3 ABG Base Excess ABG Hemoglobin Oxyhemoglobin Sodium Potassium Chloride Carbon Dioxide BUN 76 H Creatinine 1.5 H Glucose 109 H POC Glucose 129 H 129 H Lactic Acid Calcium Phosphorus Magnesium Direct Bilirubin AST ALT Alkaline Phosphatase 536 H Lactate Dehydrogenase Troponin T C-Reactive Protein Total Protein Albumin 1.5 L Prealbumin Triglycerides Cholesterol LDL Cholesterol Direct HDL Cholesterol Urine pH Urine WBC (Auto) Urine Creatinine Urine Total Protein Fluid Total Protein Vancomycin Trough Rheumatoid Factor Complement C4 Miscellaneous Test Crossmatch 01/01/17 01/01/17 01/01/17 12:25 17:01 23:32 WBC RBC Hgb Hct MCV MCH MCHC RDW Plt Count Lymph % (Auto) [place] % (Auto) Lymph # [place] # Baso # Seg Neutrophils % Seg Neuts % (Manual) Lymphocytes % (Manual) Monocytes % (Manual) Eosinophils % (Manual) Basophils % (Manual) Nucleated RBC % Seg Neutrophils # Seg Neutrophils # Man Lymphocytes # (Manual) Monocytes # (Manual) Eosinophils # (Manual) Basophils # (Manual) PT INR Fibrinogen dRVVT Confirm Interp Factor V Activity POC ABG pH POC ABG pCO2 POC ABG pO2 ABG pO2 ABG HCO3 ABG Base Excess ABG Hemoglobin Oxyhemoglobin Sodium Potassium Chloride Carbon Dioxide BUN Creatinine Glucose POC Glucose 140 H 142 H 112 H Lactic Acid Calcium Phosphorus Magnesium Direct Bilirubin AST ALT Alkaline Phosphatase Lactate Dehydrogenase Troponin T C-Reactive Protein Total Protein Albumin Prealbumin Triglycerides Cholesterol LDL Cholesterol Direct HDL Cholesterol Urine pH Urine WBC (Auto) Urine Creatinine Urine Total Protein Fluid Total Protein Vancomycin Trough Rheumatoid Factor Complement C4 Miscellaneous Test Crossmatch 01/02/17 01/02/17 01/02/17 04:56 06:00 11:37 WBC RBC Hgb Hct MCV MCH MCHC RDW Plt Count Lymph % (Auto) [place] % (Auto) Lymph # [place] # Baso # Seg Neutrophils % Seg Neuts % (Manual) Lymphocytes % (Manual) Monocytes % (Manual) Eosinophils % (Manual) Basophils % (Manual) Nucleated RBC % Seg Neutrophils # Seg Neutrophils # Man Lymphocytes # (Manual) Monocytes # (Manual) Eosinophils # (Manual) Basophils # (Manual) PT INR Fibrinogen dRVVT Confirm Interp Factor V Activity POC ABG pH POC ABG pCO2 POC ABG pO2 ABG pO2 ABG HCO3 ABG Base Excess ABG Hemoglobin Oxyhemoglobin Sodium Potassium Chloride Carbon Dioxide BUN 88 H Creatinine 1.7 H Glucose 113 H POC Glucose 136 H 200 H Lactic Acid Calcium Phosphorus Magnesium Direct Bilirubin AST ALT Alkaline Phosphatase Lactate Dehydrogenase Troponin T C-Reactive Protein Total Protein Albumin Prealbumin Triglycerides Cholesterol LDL Cholesterol Direct HDL Cholesterol Urine pH Urine WBC (Auto) Urine Creatinine Urine Total Protein Fluid Total Protein Vancomycin Trough Rheumatoid Factor Complement C4 Miscellaneous Test Crossmatch 01/02/17 01/02/17 01/03/17 17:42 22:52 04:54 WBC RBC Hgb Hct MCV MCH MCHC RDW Plt Count Lymph % (Auto) [place]nn % (Auto) Lymph # [place] # Baso # Seg Neutrophils % Seg Neuts % (Manual) Lymphocytes % (Manual) Monocytes % (Manual) Eosinophils % (Manual) Basophils % (Manual) Nucleated RBC % Seg Neutrophils # Seg Neutrophils # Man Lymphocytes # (Manual) Monocytes # (Manual) Eosinophils # (Manual) Basophils # (Manual) PT INR Fibrinogen dRVVT Confirm Interp Factor V Activity POC ABG pH POC ABG pCO2 POC ABG pO2 ABG pO2 ABG HCO3 ABG Base Excess ABG Hemoglobin Oxyhemoglobin Sodium Potassium Chloride Carbon Dioxide BUN Creatinine Glucose POC Glucose 112 H 133 H 111 H Lactic Acid Calcium Phosphorus Magnesium Direct Bilirubin AST ALT Alkaline Phosphatase Lactate Dehydrogenase Troponin T C-Reactive Protein Total Protein Albumin Prealbumin Triglycerides Cholesterol LDL Cholesterol Direct HDL Cholesterol Urine pH Urine WBC (Auto) Urine Creatinine Urine Total Protein Fluid Total Protein Vancomycin Trough Rheumatoid Factor Complement C4 Miscellaneous Test Crossmatch 01/03/17 01/03/17 01/03/17 05:00 05:00 14:02 WBC 11.2 H RBC 2.56 L Hgb 7.2 L Hct 22.3 L MCV MCH MCHC RDW 17.3 H Plt Count Lymph % (Auto) [place] % (Auto) 10.0 H Lymph # [place] # 1.1 H Baso # Seg Neutrophils % 70.5 H Seg Neuts % (Manual) Lymphocytes % (Manual) Monocytes % (Manual) Eosinophils % (Manual) Basophils % (Manual) Nucleated RBC % Seg Neutrophils # 7.9 H Seg Neutrophils # Man Lymphocytes # (Manual) Monocytes # (Manual) Eosinophils # (Manual) Basophils # (Manual) PT INR Fibrinogen dRVVT Confirm Interp Factor V Activity POC ABG pH POC ABG pCO2 POC ABG pO2 ABG pO2 ABG HCO3 ABG Base Excess ABG Hemoglobin Oxyhemoglobin Sodium Potassium Chloride Carbon Dioxide BUN 60 H Creatinine 1.3 H Glucose 110 H POC Glucose 119 H Lactic Acid Calcium Phosphorus Magnesium Direct Bilirubin AST ALT Alkaline Phosphatase Lactate Dehydrogenase Troponin T C-Reactive Protein Total Protein Albumin Prealbumin Triglycerides Cholesterol LDL Cholesterol Direct HDL Cholesterol Urine pH Urine WBC (Auto) Urine Creatinine Urine Total Protein Fluid Total Protein Vancomycin Trough Rheumatoid Factor Complement C4 Miscellaneous Test Crossmatch 01/03/17 01/03/17 01/04/17 18:13 23:40 05:57 WBC RBC Hgb Hct MCV MCH MCHC RDW Plt Count Lymph % (Auto) [place]nn % (Auto) Lymph # [place] # Baso # Seg Neutrophils % Seg Neuts % (Manual) Lymphocytes % (Manual) Monocytes % (Manual) Eosinophils % (Manual) Basophils % (Manual) Nucleated RBC % Seg Neutrophils # Seg Neutrophils # Man Lymphocytes # (Manual) Monocytes # (Manual) Eosinophils # (Manual) Basophils # (Manual) PT INR Fibrinogen dRVVT Confirm Interp Factor V Activity POC ABG pH POC ABG pCO2 POC ABG pO2 ABG pO2 ABG HCO3 ABG Base Excess ABG Hemoglobin Oxyhemoglobin Sodium Potassium Chloride Carbon Dioxide BUN Creatinine Glucose POC Glucose 107 H 129 H 111 H Lactic Acid Calcium Phosphorus Magnesium Direct Bilirubin AST ALT Alkaline Phosphatase Lactate Dehydrogenase Troponin T C-Reactive Protein Total Protein Albumin Prealbumin Triglycerides Cholesterol LDL Cholesterol Direct HDL Cholesterol Urine pH Urine WBC (Auto) Urine Creatinine Urine Total Protein Fluid Total Protein Vancomycin Trough Rheumatoid Factor Complement C4 Miscellaneous Test Crossmatch 01/04/17 01/04/17 01/04/17 12:46 15:27 17:11 WBC RBC Hgb Hct MCV MCH MCHC RDW Plt Count Lymph % (Auto) [place] % (Auto) Lymph # [place] # Baso # Seg Neutrophils % Seg Neuts % (Manual) Lymphocytes % (Manual) Monocytes % (Manual) Eosinophils % (Manual) Basophils % (Manual) Nucleated RBC % Seg Neutrophils # Seg Neutrophils # Man Lymphocytes # (Manual) Monocytes # (Manual) Eosinophils # (Manual) Basophils # (Manual) PT INR Fibrinogen dRVVT Confirm Interp Factor V Activity POC ABG pH POC ABG pCO2 POC ABG pO2 ABG pO2 ABG HCO3 ABG Base Excess ABG Hemoglobin Oxyhemoglobin Sodium Potassium Chloride Carbon Dioxide BUN 43 H Creatinine Glucose 124 H POC Glucose 159 H 125 H Lactic Acid Calcium 8.0 L Phosphorus 2.10 L Magnesium Direct Bilirubin AST ALT Alkaline Phosphatase Lactate Dehydrogenase Troponin T C-Reactive Protein Total Protein Albumin Prealbumin Triglycerides Cholesterol LDL Cholesterol Direct HDL Cholesterol Urine pH Urine WBC (Auto) Urine Creatinine Urine Total Protein Fluid Total Protein Vancomycin Trough Rheumatoid Factor Complement C4 Miscellaneous Test Crossmatch 01/04/17 01/05/17 01/05/17 23:31 04:00 05:46 WBC RBC Hgb Hct MCV MCH MCHC RDW Plt Count Lymph % (Auto) [place] % (Auto) Lymph # [place] # Baso # Seg Neutrophils % Seg Neuts % (Manual) Lymphocytes % (Manual) Monocytes % (Manual) Eosinophils % (Manual) Basophils % (Manual) Nucleated RBC % Seg Neutrophils # Seg Neutrophils # Man Lymphocytes # (Manual) Monocytes # (Manual) Eosinophils # (Manual) Basophils # (Manual) PT INR Fibrinogen dRVVT Confirm Interp Factor V Activity POC ABG pH POC ABG pCO2 POC ABG pO2 ABG pO2 ABG HCO3 ABG Base Excess ABG Hemoglobin Oxyhemoglobin Sodium Potassium Chloride Carbon Dioxide BUN 52 H Creatinine 1.3 H Glucose 113 H POC Glucose 123 H 118 H Lactic Acid Calcium Phosphorus 2.40 L Magnesium Direct Bilirubin AST ALT Alkaline Phosphatase Lactate Dehydrogenase Troponin T C-Reactive Protein Total Protein Albumin Prealbumin Triglycerides Cholesterol LDL Cholesterol Direct HDL Cholesterol Urine pH Urine WBC (Auto) Urine Creatinine Urine Total Protein Fluid Total Protein Vancomycin Trough Rheumatoid Factor Complement C4 Miscellaneous Test Crossmatch 01/05/17 01/05/17 01/05/17 11:41 17:48 23:27 WBC RBC Hgb Hct MCV MCH MCHC RDW Plt Count Lymph % (Auto) [place] % (Auto) Lymph # [place] # Baso # Seg Neutrophils % Seg Neuts % (Manual) Lymphocytes % (Manual) Monocytes % (Manual) Eosinophils % (Manual) Basophils % (Manual) Nucleated RBC % Seg Neutrophils # Seg Neutrophils # Man Lymphocytes # (Manual) Monocytes # (Manual) Eosinophils # (Manual) Basophils # (Manual) PT INR Fibrinogen dRVVT Confirm Interp Factor V Activity POC ABG pH POC ABG pCO2 POC ABG pO2 ABG pO2 ABG HCO3 ABG Base Excess ABG Hemoglobin Oxyhemoglobin Sodium Potassium Chloride Carbon Dioxide BUN Creatinine Glucose POC Glucose 163 H 142 H 155 H Lactic Acid Calcium Phosphorus Magnesium Direct Bilirubin AST ALT Alkaline Phosphatase Lactate Dehydrogenase Troponin T C-Reactive Protein Total Protein Albumin Prealbumin Triglycerides Cholesterol LDL Cholesterol Direct HDL Cholesterol Urine pH Urine WBC (Auto) Urine Creatinine Urine Total Protein Fluid Total Protein Vancomycin Trough Rheumatoid Factor Complement C4 Miscellaneous Test Crossmatch 01/06/17 01/06/17 01/06/17 05:20 07:35 11:18 WBC RBC Hgb Hct MCV MCH MCHC RDW Plt Count Lymph % (Auto) [place]nn % (Auto) Lymph # [place] # Baso # Seg Neutrophils % Seg Neuts % (Manual) Lymphocytes % (Manual) Monocytes % (Manual) Eosinophils % (Manual) Basophils % (Manual) Nucleated RBC % Seg Neutrophils # Seg Neutrophils # Man Lymphocytes # (Manual) Monocytes # (Manual) Eosinophils # (Manual) Basophils # (Manual) PT INR Fibrinogen dRVVT Confirm Interp Factor V Activity POC ABG pH POC ABG pCO2 POC ABG pO2 ABG pO2 ABG HCO3 ABG Base Excess ABG Hemoglobin Oxyhemoglobin Sodium Potassium Chloride Carbon Dioxide BUN 74 H Creatinine 1.6 H Glucose 135 H POC Glucose 108 H 149 H Lactic Acid Calcium Phosphorus Magnesium Direct Bilirubin AST ALT Alkaline Phosphatase Lactate Dehydrogenase Troponin T C-Reactive Protein Total Protein Albumin Prealbumin Triglycerides Cholesterol LDL Cholesterol Direct HDL Cholesterol Urine pH Urine WBC (Auto) Urine Creatinine Urine Total Protein Fluid Total Protein Vancomycin Trough Rheumatoid Factor Complement C4 Miscellaneous Test Crossmatch 01/06/17 01/07/17 01/07/17 17:17 00:23 05:31 WBC RBC Hgb Hct MCV MCH MCHC RDW Plt Count Lymph % (Auto) [place]nn % (Auto) Lymph # [place] # Baso # Seg Neutrophils % Seg Neuts % (Manual) Lymphocytes % (Manual) Monocytes % (Manual) Eosinophils % (Manual) Basophils % (Manual) Nucleated RBC % Seg Neutrophils # Seg Neutrophils # Man Lymphocytes # (Manual) Monocytes # (Manual) Eosinophils # (Manual) Basophils # (Manual) PT INR Fibrinogen dRVVT Confirm Interp Factor V Activity POC ABG pH POC ABG pCO2 POC ABG pO2 ABG pO2 ABG HCO3 ABG Base Excess ABG Hemoglobin Oxyhemoglobin Sodium Potassium Chloride Carbon Dioxide BUN Creatinine Glucose POC Glucose 146 H 165 H 153 H Lactic Acid Calcium Phosphorus Magnesium Direct Bilirubin AST ALT Alkaline Phosphatase Lactate Dehydrogenase Troponin T C-Reactive Protein Total Protein Albumin Prealbumin Triglycerides Cholesterol LDL Cholesterol Direct HDL Cholesterol Urine pH Urine WBC (Auto) Urine Creatinine Urine Total Protein Fluid Total Protein Vancomycin Trough Rheumatoid Factor Complement C4 Miscellaneous Test Crossmatch 01/07/17 01/07/17 01/07/17 06:00 11:39 17:11 WBC RBC Hgb Hct MCV MCH MCHC RDW Plt Count Lymph % (Auto) [place]nn % (Auto) Lymph # [place] # Baso # Seg Neutrophils % Seg Neuts % (Manual) Lymphocytes % (Manual) Monocytes % (Manual) Eosinophils % (Manual) Basophils % (Manual) Nucleated RBC % Seg Neutrophils # Seg Neutrophils # Man Lymphocytes # (Manual) Monocytes # (Manual) Eosinophils # (Manual) Basophils # (Manual) PT INR Fibrinogen dRVVT Confirm Interp Factor V Activity POC ABG pH POC ABG pCO2 POC ABG pO2 ABG pO2 ABG HCO3 ABG Base Excess ABG Hemoglobin Oxyhemoglobin Sodium Potassium Chloride Carbon Dioxide BUN 42 H Creatinine Glucose 175 H POC Glucose 163 H 163 H Lactic Acid Calcium Phosphorus 2.40 L D Magnesium Direct Bilirubin AST ALT Alkaline Phosphatase Lactate Dehydrogenase Troponin T C-Reactive Protein Total Protein Albumin Prealbumin Triglycerides Cholesterol LDL Cholesterol Direct HDL Cholesterol Urine pH Urine WBC (Auto) Urine Creatinine Urine Total Protein Fluid Total Protein Vancomycin Trough Rheumatoid Factor Complement C4 Miscellaneous Test Crossmatch 01/07/17 01/08/17 01/08/17 23:40 05:00 05:00 WBC 27.4 H RBC 2.27 L Hgb 6.1 L Hct 20.4 L MCV MCH 27 L MCHC RDW 17.8 H Plt Count Lymph % (Auto) [place] % (Auto) Lymph # [place] # Baso # Seg Neutrophils % Seg Neuts % (Manual) Lymphocytes % (Manual) Monocytes % (Manual) Eosinophils % (Manual) Basophils % (Manual) Nucleated RBC % Seg Neutrophils # Seg Neutrophils # Man Lymphocytes # (Manual) Monocytes # (Manual) Eosinophils # (Manual) Basophils # (Manual) PT INR Fibrinogen dRVVT Confirm Interp Factor V Activity POC ABG pH POC ABG pCO2 POC ABG pO2 ABG pO2 ABG HCO3 ABG Base Excess ABG Hemoglobin Oxyhemoglobin Sodium Potassium Chloride Carbon Dioxide 16 L D BUN 62 H Creatinine 1.6 H D Glucose 103 H POC Glucose 135 H Lactic Acid Calcium Phosphorus Magnesium Direct Bilirubin AST ALT Alkaline Phosphatase Lactate Dehydrogenase Troponin T C-Reactive Protein Total Protein Albumin Prealbumin Triglycerides Cholesterol LDL Cholesterol Direct HDL Cholesterol Urine pH Urine WBC (Auto) Urine Creatinine Urine Total Protein Fluid Total Protein Vancomycin Trough Rheumatoid Factor Complement C4 Miscellaneous Test Crossmatch 01/08/17 01/08/17 01/08/17 05:25 10:37 10:37 WBC RBC Hgb Hct MCV MCH MCHC RDW Plt Count Lymph % (Auto) [place] % (Auto) Lymph # [place] # Baso # Seg Neutrophils % Seg Neuts % (Manual) Lymphocytes % (Manual) Monocytes % (Manual) Eosinophils % (Manual) Basophils % (Manual) Nucleated RBC % Seg Neutrophils # Seg Neutrophils # Man Lymphocytes # (Manual) Monocytes # (Manual) Eosinophils # (Manual) Basophils # (Manual) PT INR Fibrinogen dRVVT Confirm Interp Factor V Activity POC ABG pH POC ABG pCO2 POC ABG pO2 ABG pO2 ABG HCO3 ABG Base Excess ABG Hemoglobin Oxyhemoglobin Sodium Potassium Chloride Carbon Dioxide BUN Creatinine Glucose POC Glucose 106 H Lactic Acid Calcium Phosphorus Magnesium Direct Bilirubin AST ALT Alkaline Phosphatase Lactate Dehydrogenase Troponin T C-Reactive Protein 24.40 H Total Protein Albumin Prealbumin Triglycerides Cholesterol LDL Cholesterol Direct HDL Cholesterol Urine pH Urine WBC (Auto) Urine Creatinine Urine Total Protein Fluid Total Protein Vancomycin Trough Rheumatoid Factor Complement C4 Miscellaneous Test Crossmatch See Detail 01/08/17 01/08/17 01/08/17 10:37 11:33 15:15 WBC RBC Hgb Hct MCV MCH MCHC RDW Plt Count Lymph % (Auto) [place] % (Auto) Lymph # [place] # Baso # Seg Neutrophils % Seg Neuts % (Manual) Lymphocytes % (Manual) Monocytes % (Manual) Eosinophils % (Manual) Basophils % (Manual) Nucleated RBC % Seg Neutrophils # Seg Neutrophils # Man Lymphocytes # (Manual) Monocytes # (Manual) Eosinophils # (Manual) Basophils # (Manual) PT INR Fibrinogen dRVVT Confirm Interp Factor V Activity POC ABG pH POC ABG pCO2 POC ABG pO2 ABG pO2 ABG HCO3 ABG Base Excess ABG Hemoglobin Oxyhemoglobin Sodium Potassium Chloride Carbon Dioxide BUN Creatinine Glucose POC Glucose 157 H Lactic Acid 9.70 H* 9.10 H* Calcium Phosphorus Magnesium Direct Bilirubin AST ALT Alkaline Phosphatase Lactate Dehydrogenase Troponin T C-Reactive Protein Total Protein Albumin Prealbumin Triglycerides Cholesterol LDL Cholesterol Direct HDL Cholesterol Urine pH Urine WBC (Auto) Urine Creatinine Urine Total Protein Fluid Total Protein Vancomycin Trough Rheumatoid Factor Complement C4 Miscellaneous Test Crossmatch 01/08/17 01/08/17 01/09/17 17:19 23:12 04:40 WBC RBC Hgb Hct MCV MCH MCHC RDW Plt Count Lymph % (Auto) Glynn % (Auto) Lymph # Glynn # Baso # Seg Neutrophils % Seg Neuts % (Manual) Lymphocytes % (Manual) Monocytes % (Manual) Eosinophils % (Manual) Basophils % (Manual) Nucleated RBC % Seg Neutrophils # Seg Neutrophils # Man Lymphocytes # (Manual) Monocytes # (Manual) Eosinophils # (Manual) Basophils # (Manual) PT INR Fibrinogen dRVVT Confirm Interp Factor V Activity POC ABG pH POC ABG pCO2 POC ABG pO2 ABG pO2 ABG HCO3 ABG Base Excess ABG Hemoglobin Oxyhemoglobin Sodium 147 H Potassium Chloride Carbon Dioxide BUN 82 H Creatinine 1.8 H Glucose 137 H POC Glucose 164 H 157 H Lactic Acid Calcium Phosphorus Magnesium Direct Bilirubin AST ALT Alkaline Phosphatase Lactate Dehydrogenase Troponin T C-Reactive Protein Total Protein Albumin Prealbumin Triglycerides Cholesterol LDL Cholesterol Direct HDL Cholesterol Urine pH Urine WBC (Auto) Urine Creatinine Urine Total Protein Fluid Total Protein Vancomycin Trough Rheumatoid Factor Complement C4 Miscellaneous Test Crossmatch 01/09/17 01/09/17 01/09/17 05:42 08:22 10:57 WBC RBC Hgb Hct MCV MCH MCHC RDW Plt Count Lymph % (Auto) Glynn % (Auto) Lymph # [place]nn # Baso # Seg Neutrophils % Seg Neuts % (Manual) Lymphocytes % (Manual) Monocytes % (Manual) Eosinophils % (Manual) Basophils % (Manual) Nucleated RBC % Seg Neutrophils # Seg Neutrophils # Man Lymphocytes # (Manual) Monocytes # (Manual) Eosinophils # (Manual) Basophils # (Manual) PT INR Fibrinogen dRVVT Confirm Interp Factor V Activity POC ABG pH POC ABG pCO2 POC ABG pO2 ABG pO2 ABG HCO3 ABG Base Excess ABG Hemoglobin Oxyhemoglobin Sodium Potassium Chloride Carbon Dioxide BUN Creatinine Glucose POC Glucose 156 H 122 H Lactic Acid 2.30 H* Calcium Phosphorus Magnesium Direct Bilirubin AST ALT Alkaline Phosphatase Lactate Dehydrogenase Troponin T C-Reactive Protein Total Protein Albumin Prealbumin Triglycerides Cholesterol LDL Cholesterol Direct HDL Cholesterol Urine pH Urine WBC (Auto) Urine Creatinine Urine Total Protein Fluid Total Protein Vancomycin Trough Rheumatoid Factor Complement C4 Miscellaneous Test Crossmatch 01/09/17 01/09/17 01/09/17 13:30 17:14 18:45 WBC RBC Hgb Hct MCV MCH MCHC RDW Plt Count Lymph % (Auto) Glynn % (Auto) Lymph # [place]nn # Baso # Seg Neutrophils % Seg Neuts % (Manual) Lymphocytes % (Manual) Monocytes % (Manual) Eosinophils % (Manual) Basophils % (Manual) Nucleated RBC % Seg Neutrophils # Seg Neutrophils # Man Lymphocytes # (Manual) Monocytes # (Manual) Eosinophils # (Manual) Basophils # (Manual) PT INR Fibrinogen dRVVT Confirm Interp Factor V Activity POC ABG pH POC ABG pCO2 POC ABG pO2 ABG pO2 ABG HCO3 ABG Base Excess ABG Hemoglobin Oxyhemoglobin Sodium Potassium Chloride Carbon Dioxide BUN Creatinine Glucose POC Glucose 127 H Lactic Acid Calcium Phosphorus Magnesium Direct Bilirubin AST ALT Alkaline Phosphatase Lactate Dehydrogenase Troponin T C-Reactive Protein 24.70 H Total Protein Albumin Prealbumin Triglycerides Cholesterol LDL Cholesterol Direct HDL Cholesterol Urine pH Urine WBC (Auto) Urine Creatinine Urine Total Protein Fluid Total Protein Vancomycin Trough Rheumatoid Factor Complement C4 Miscellaneous Test Flexitest 1 H Crossmatch 01/10/17 01/10/17 01/10/17 01:21 04:00 04:00 WBC 18.1 H RBC 3.22 L Hgb 8.8 L Hct 27.0 L D MCV MCH 27 L MCHC RDW 17.0 H Plt Count Lymph % (Auto) Glynn % (Auto) Lymph # [place]nn # Baso # Seg Neutrophils % Seg Neuts % (Manual) Lymphocytes % (Manual) Monocytes % (Manual) Eosinophils % (Manual) Basophils % (Manual) Nucleated RBC % Seg Neutrophils # Seg Neutrophils # Man Lymphocytes # (Manual) Monocytes # (Manual) Eosinophils # (Manual) Basophils # (Manual) PT INR Fibrinogen dRVVT Confirm Interp Factor V Activity POC ABG pH POC ABG pCO2 POC ABG pO2 ABG pO2 ABG HCO3 ABG Base Excess ABG Hemoglobin Oxyhemoglobin Sodium Potassium Chloride Carbon Dioxide BUN 59 H Creatinine 1.3 H Glucose 122 H POC Glucose 160 H Lactic Acid Calcium Phosphorus Magnesium Direct Bilirubin AST ALT Alkaline Phosphatase Lactate Dehydrogenase Troponin T C-Reactive Protein Total Protein Albumin Prealbumin Triglycerides Cholesterol LDL Cholesterol Direct HDL Cholesterol Urine pH Urine WBC (Auto) Urine Creatinine Urine Total Protein Fluid Total Protein Vancomycin Trough Rheumatoid Factor Complement C4 Miscellaneous Test Crossmatch 01/10/17 01/10/17 01/10/17 05:36 12:14 17:55 WBC RBC Hgb Hct MCV MCH MCHC RDW Plt Count Lymph % (Auto) [place]nn % (Auto) Lymph # [place]nn # Baso # Seg Neutrophils % Seg Neuts % (Manual) Lymphocytes % (Manual) Monocytes % (Manual) Eosinophils % (Manual) Basophils % (Manual) Nucleated RBC % Seg Neutrophils # Seg Neutrophils # Man Lymphocytes # (Manual) Monocytes # (Manual) Eosinophils # (Manual) Basophils # (Manual) PT INR Fibrinogen dRVVT Confirm Interp Factor V Activity POC ABG pH POC ABG pCO2 POC ABG pO2 ABG pO2 ABG HCO3 ABG Base Excess ABG Hemoglobin Oxyhemoglobin Sodium Potassium Chloride Carbon Dioxide BUN Creatinine Glucose POC Glucose 163 H 120 H 144 H Lactic Acid Calcium Phosphorus Magnesium Direct Bilirubin AST ALT Alkaline Phosphatase Lactate Dehydrogenase Troponin T C-Reactive Protein Total Protein Albumin Prealbumin Triglycerides Cholesterol LDL Cholesterol Direct HDL Cholesterol Urine pH Urine WBC (Auto) Urine Creatinine Urine Total Protein Fluid Total Protein Vancomycin Trough Rheumatoid Factor Complement C4 Miscellaneous Test Crossmatch 01/11/17 01/11/17 01/11/17 00:09 04:00 04:00 WBC 15.8 H RBC 3.04 L Hgb 8.2 L Hct 25.5 L MCV MCH 27 L MCHC RDW 17.3 H Plt Count Lymph % (Auto) [place]nn % (Auto) Lymph # [place]nn # Baso # Seg Neutrophils % Seg Neuts % (Manual) Lymphocytes % (Manual) Monocytes % (Manual) Eosinophils % (Manual) Basophils % (Manual) Nucleated RBC % Seg Neutrophils # Seg Neutrophils # Man Lymphocytes # (Manual) Monocytes # (Manual) Eosinophils # (Manual) Basophils # (Manual) PT INR Fibrinogen dRVVT Confirm Interp Factor V Activity POC ABG pH POC ABG pCO2 POC ABG pO2 ABG pO2 ABG HCO3 ABG Base Excess ABG Hemoglobin Oxyhemoglobin Sodium Potassium Chloride Carbon Dioxide BUN 78 H Creatinine 1.6 H Glucose 109 H POC Glucose 122 H Lactic Acid Calcium Phosphorus Magnesium Direct Bilirubin AST ALT Alkaline Phosphatase Lactate Dehydrogenase Troponin T C-Reactive Protein Total Protein Albumin Prealbumin Triglycerides Cholesterol LDL Cholesterol Direct HDL Cholesterol Urine pH Urine WBC (Auto) Urine Creatinine Urine Total Protein Fluid Total Protein Vancomycin Trough Rheumatoid Factor Complement C4 Miscellaneous Test Crossmatch 01/11/17 01/11/17 01/11/17 12:46 18:23 23:42 WBC RBC Hgb Hct MCV MCH MCHC RDW Plt Count Lymph % (Auto) [place]nn % (Auto) Lymph # [place] # Baso # Seg Neutrophils % Seg Neuts % (Manual) Lymphocytes % (Manual) Monocytes % (Manual) Eosinophils % (Manual) Basophils % (Manual) Nucleated RBC % Seg Neutrophils # Seg Neutrophils # Man Lymphocytes # (Manual) Monocytes # (Manual) Eosinophils # (Manual) Basophils # (Manual) PT INR Fibrinogen dRVVT Confirm Interp Factor V Activity POC ABG pH POC ABG pCO2 POC ABG pO2 ABG pO2 ABG HCO3 ABG Base Excess ABG Hemoglobin Oxyhemoglobin Sodium Potassium Chloride Carbon Dioxide BUN Creatinine Glucose POC Glucose 148 H 125 H 124 H Lactic Acid Calcium Phosphorus Magnesium Direct Bilirubin AST ALT Alkaline Phosphatase Lactate Dehydrogenase Troponin T C-Reactive Protein Total Protein Albumin Prealbumin Triglycerides Cholesterol LDL Cholesterol Direct HDL Cholesterol Urine pH Urine WBC (Auto) Urine Creatinine Urine Total Protein Fluid Total Protein Vancomycin Trough Rheumatoid Factor Complement C4 Miscellaneous Test Crossmatch 01/12/17 01/12/17 01/12/17 04:30 04:30 05:47 WBC 15.8 H RBC 3.31 L Hgb 8.9 L Hct 27.9 L MCV MCH 27 L MCHC RDW 17.4 H Plt Count Lymph % (Auto) [place]nn % (Auto) Lymph # [place]nn # Baso # Seg Neutrophils % Seg Neuts % (Manual) Lymphocytes % (Manual) Monocytes % (Manual) Eosinophils % (Manual) Basophils % (Manual) Nucleated RBC % Seg Neutrophils # Seg Neutrophils # Man Lymphocytes # (Manual) Monocytes # (Manual) Eosinophils # (Manual) Basophils # (Manual) PT INR Fibrinogen dRVVT Confirm Interp Factor V Activity POC ABG pH POC ABG pCO2 POC ABG pO2 ABG pO2 ABG HCO3 ABG Base Excess ABG Hemoglobin Oxyhemoglobin Sodium Potassium Chloride Carbon Dioxide BUN 57 H Creatinine Glucose 121 H POC Glucose 110 H Lactic Acid Calcium Phosphorus 2.10 L Magnesium Direct Bilirubin AST ALT Alkaline Phosphatase Lactate Dehydrogenase Troponin T C-Reactive Protein Total Protein Albumin Prealbumin Triglycerides Cholesterol LDL Cholesterol Direct HDL Cholesterol Urine pH Urine WBC (Auto) Urine Creatinine Urine Total Protein Fluid Total Protein Vancomycin Trough Rheumatoid Factor Complement C4 Miscellaneous Test Crossmatch 01/12/17 01/12/17 01/12/17 11:35 17:45 23:14 WBC RBC Hgb Hct MCV MCH MCHC RDW Plt Count Lymph % (Auto) [place]nn % (Auto) Lymph # [place] # Baso # Seg Neutrophils % Seg Neuts % (Manual) Lymphocytes % (Manual) Monocytes % (Manual) Eosinophils % (Manual) Basophils % (Manual) Nucleated RBC % Seg Neutrophils # Seg Neutrophils # Man Lymphocytes # (Manual) Monocytes # (Manual) Eosinophils # (Manual) Basophils # (Manual) PT INR Fibrinogen dRVVT Confirm Interp Factor V Activity POC ABG pH POC ABG pCO2 POC ABG pO2 ABG pO2 ABG HCO3 ABG Base Excess ABG Hemoglobin Oxyhemoglobin Sodium Potassium Chloride Carbon Dioxide BUN Creatinine Glucose POC Glucose 146 H 117 H 123 H Lactic Acid Calcium Phosphorus Magnesium Direct Bilirubin AST ALT Alkaline Phosphatase Lactate Dehydrogenase Troponin T C-Reactive Protein Total Protein Albumin Prealbumin Triglycerides Cholesterol LDL Cholesterol Direct HDL Cholesterol Urine pH Urine WBC (Auto) Urine Creatinine Urine Total Protein Fluid Total Protein Vancomycin Trough Rheumatoid Factor Complement C4 Miscellaneous Test Crossmatch 01/13/17 01/13/17 01/13/17 05:32 06:00 12:10 WBC RBC Hgb Hct MCV MCH MCHC RDW Plt Count Lymph % (Auto) [place]nn % (Auto) Lymph # [place] # Baso # Seg Neutrophils % Seg Neuts % (Manual) Lymphocytes % (Manual) Monocytes % (Manual) Eosinophils % (Manual) Basophils % (Manual) Nucleated RBC % Seg Neutrophils # Seg Neutrophils # Man Lymphocytes # (Manual) Monocytes # (Manual) Eosinophils # (Manual) Basophils # (Manual) PT INR Fibrinogen dRVVT Confirm Interp Factor V Activity POC ABG pH POC ABG pCO2 POC ABG pO2 ABG pO2 ABG HCO3 ABG Base Excess ABG Hemoglobin Oxyhemoglobin Sodium Potassium Chloride Carbon Dioxide BUN 80 H Creatinine 1.4 H Glucose 106 H POC Glucose 106 H Lactic Acid Calcium Phosphorus Magnesium Direct Bilirubin AST ALT Alkaline Phosphatase Lactate Dehydrogenase Troponin T C-Reactive Protein Total Protein Albumin Prealbumin Triglycerides Cholesterol LDL Cholesterol Direct HDL Cholesterol Urine pH Urine WBC (Auto) Urine Creatinine Urine Total Protein Fluid Total Protein 3.0 L Vancomycin Trough Rheumatoid Factor Complement C4 Miscellaneous Test Crossmatch 01/13/17 01/13/17 01/13/17 12:17 15:50 17:30 WBC RBC Hgb Hct MCV MCH MCHC RDW Plt Count Lymph % (Auto) [place]nn % (Auto) Lymph # [place] # Baso # Seg Neutrophils % Seg Neuts % (Manual) Lymphocytes % (Manual) Monocytes % (Manual) Eosinophils % (Manual) Basophils % (Manual) Nucleated RBC % Seg Neutrophils # Seg Neutrophils # Man Lymphocytes # (Manual) Monocytes # (Manual) Eosinophils # (Manual) Basophils # (Manual) PT 15.4 H INR 1.16 H Fibrinogen dRVVT Confirm Interp Factor V Activity POC ABG pH POC ABG pCO2 POC ABG pO2 ABG pO2 ABG HCO3 ABG Base Excess ABG Hemoglobin Oxyhemoglobin Sodium Potassium Chloride Carbon Dioxide BUN Creatinine Glucose POC Glucose 168 H 110 H Lactic Acid Calcium Phosphorus Magnesium Direct Bilirubin AST ALT Alkaline Phosphatase Lactate Dehydrogenase Troponin T C-Reactive Protein Total Protein Albumin Prealbumin Triglycerides Cholesterol LDL Cholesterol Direct HDL Cholesterol Urine pH Urine WBC (Auto) Urine Creatinine Urine Total Protein Fluid Total Protein Vancomycin Trough Rheumatoid Factor Complement C4 Miscellaneous Test Crossmatch 01/13/17 01/14/17 01/14/17 23:42 05:24 05:30 WBC RBC Hgb Hct MCV MCH MCHC RDW Plt Count Lymph % (Auto) [place]nn % (Auto) Lymph # [place] # Baso # Seg Neutrophils % Seg Neuts % (Manual) Lymphocytes % (Manual) Monocytes % (Manual) Eosinophils % (Manual) Basophils % (Manual) Nucleated RBC % Seg Neutrophils # Seg Neutrophils # Man Lymphocytes # (Manual) Monocytes # (Manual) Eosinophils # (Manual) Basophils # (Manual) PT INR Fibrinogen dRVVT Confirm Interp Factor V Activity POC ABG pH POC ABG pCO2 POC ABG pO2 ABG pO2 ABG HCO3 ABG Base Excess ABG Hemoglobin Oxyhemoglobin Sodium Potassium Chloride Carbon Dioxide BUN 58 H Creatinine Glucose 114 H POC Glucose 155 H 121 H Lactic Acid Calcium Phosphorus Magnesium Direct Bilirubin AST ALT Alkaline Phosphatase Lactate Dehydrogenase Troponin T C-Reactive Protein Total Protein Albumin Prealbumin Triglycerides Cholesterol LDL Cholesterol Direct HDL Cholesterol Urine pH Urine WBC (Auto) Urine Creatinine Urine Total Protein Fluid Total Protein Vancomycin Trough Rheumatoid Factor Complement C4 Miscellaneous Test Crossmatch 01/14/17 01/14/17 01/15/17 12:48 17:36 00:15 WBC RBC Hgb Hct MCV MCH MCHC RDW Plt Count Lymph % (Auto) [place]nn % (Auto) Lymph # [place]nn # Baso # Seg Neutrophils % Seg Neuts % (Manual) Lymphocytes % (Manual) Monocytes % (Manual) Eosinophils % (Manual) Basophils % (Manual) Nucleated RBC % Seg Neutrophils # Seg Neutrophils # Man Lymphocytes # (Manual) Monocytes # (Manual) Eosinophils # (Manual) Basophils # (Manual) PT INR Fibrinogen dRVVT Confirm Interp Factor V Activity POC ABG pH POC ABG pCO2 POC ABG pO2 ABG pO2 ABG HCO3 ABG Base Excess ABG Hemoglobin Oxyhemoglobin Sodium Potassium Chloride Carbon Dioxide BUN Creatinine Glucose POC Glucose 130 H 135 H 132 H Lactic Acid Calcium Phosphorus Magnesium Direct Bilirubin AST ALT Alkaline Phosphatase Lactate Dehydrogenase Troponin T C-Reactive Protein Total Protein Albumin Prealbumin Triglycerides Cholesterol LDL Cholesterol Direct HDL Cholesterol Urine pH Urine WBC (Auto) Urine Creatinine Urine Total Protein Fluid Total Protein Vancomycin Trough Rheumatoid Factor Complement C4 Miscellaneous Test Crossmatch 01/15/17 01/15/17 01/15/17 05:01 11:55 12:45 WBC 16.2 H RBC 3.00 L Hgb 8.1 L Hct 25.4 L MCV MCH 27 L MCHC RDW 17.6 H Plt Count Lymph % (Auto) 11.7 L Glynn % (Auto) 7.8 H Lymph # [place]nn # 1.3 H Baso # Seg Neutrophils % 80.1 H Seg Neuts % (Manual) Lymphocytes % (Manual) Monocytes % (Manual) Eosinophils % (Manual) Basophils % (Manual) Nucleated RBC % Seg Neutrophils # 13.0 H Seg Neutrophils # Man Lymphocytes # (Manual) Monocytes # (Manual) Eosinophils # (Manual) Basophils # (Manual) PT INR Fibrinogen dRVVT Confirm Interp Factor V Activity POC ABG pH POC ABG pCO2 POC ABG pO2 ABG pO2 ABG HCO3 ABG Base Excess ABG Hemoglobin Oxyhemoglobin Sodium Potassium Chloride Carbon Dioxide BUN Creatinine Glucose POC Glucose 126 H 125 H Lactic Acid Calcium Phosphorus Magnesium Direct Bilirubin AST ALT Alkaline Phosphatase Lactate Dehydrogenase Troponin T C-Reactive Protein Total Protein Albumin Prealbumin Triglycerides Cholesterol LDL Cholesterol Direct HDL Cholesterol Urine pH Urine WBC (Auto) Urine Creatinine Urine Total Protein Fluid Total Protein Vancomycin Trough Rheumatoid Factor Complement C4 Miscellaneous Test Crossmatch 01/15/17 01/15/17 01/15/17 12:45 17:31 23:39 WBC RBC Hgb Hct MCV MCH MCHC RDW Plt Count Lymph % (Auto) [place]nn % (Auto) Lymph # [place] # Baso # Seg Neutrophils % Seg Neuts % (Manual) Lymphocytes % (Manual) Monocytes % (Manual) Eosinophils % (Manual) Basophils % (Manual) Nucleated RBC % Seg Neutrophils # Seg Neutrophils # Man Lymphocytes # (Manual) Monocytes # (Manual) Eosinophils # (Manual) Basophils # (Manual) PT INR Fibrinogen dRVVT Confirm Interp Factor V Activity POC ABG pH POC ABG pCO2 POC ABG pO2 ABG pO2 ABG HCO3 ABG Base Excess ABG Hemoglobin Oxyhemoglobin Sodium 136 L Potassium Chloride Carbon Dioxide BUN 87 H Creatinine 1.7 H Glucose 108 H POC Glucose 129 H 112 H Lactic Acid Calcium Phosphorus Magnesium Direct Bilirubin AST ALT Alkaline Phosphatase Lactate Dehydrogenase Troponin T C-Reactive Protein Total Protein Albumin Prealbumin Triglycerides Cholesterol LDL Cholesterol Direct HDL Cholesterol Urine pH Urine WBC (Auto) Urine Creatinine Urine Total Protein Fluid Total Protein Vancomycin Trough Rheumatoid Factor Complement C4 Miscellaneous Test Crossmatch 01/16/17 01/16/17 01/16/17 05:23 11:42 12:32 WBC RBC Hgb Hct MCV MCH MCHC RDW Plt Count Lymph % (Auto) [place]nn % (Auto) Lymph # [place] # Baso # Seg Neutrophils % Seg Neuts % (Manual) Lymphocytes % (Manual) Monocytes % (Manual) Eosinophils % (Manual) Basophils % (Manual) Nucleated RBC % Seg Neutrophils # Seg Neutrophils # Man Lymphocytes # (Manual) Monocytes # (Manual) Eosinophils # (Manual) Basophils # (Manual) PT INR Fibrinogen dRVVT Confirm Interp Factor V Activity POC ABG pH 7.499 H POC ABG pCO2 30.9 L POC ABG pO2 51 L ABG pO2 ABG HCO3 ABG Base Excess ABG Hemoglobin Oxyhemoglobin Sodium Potassium Chloride Carbon Dioxide BUN Creatinine Glucose POC Glucose 118 H 133 H Lactic Acid Calcium Phosphorus Magnesium Direct Bilirubin AST ALT Alkaline Phosphatase Lactate Dehydrogenase Troponin T C-Reactive Protein Total Protein Albumin Prealbumin Triglycerides Cholesterol LDL Cholesterol Direct HDL Cholesterol Urine pH Urine WBC (Auto) Urine Creatinine Urine Total Protein Fluid Total Protein Vancomycin Trough Rheumatoid Factor Complement C4 Miscellaneous Test Crossmatch 01/16/17 01/16/17 01/16/17 17:52 23:57 Unknown WBC RBC Hgb Hct MCV MCH MCHC RDW Plt Count Lymph % (Auto) [place]nn % (Auto) Lymph # [place]nn # Baso # Seg Neutrophils % Seg Neuts % (Manual) Lymphocytes % (Manual) Monocytes % (Manual) Eosinophils % (Manual) Basophils % (Manual) Nucleated RBC % Seg Neutrophils # Seg Neutrophils # Man Lymphocytes # (Manual) Monocytes # (Manual) Eosinophils # (Manual) Basophils # (Manual) PT INR Fibrinogen dRVVT Confirm Interp Factor V Activity POC ABG pH POC ABG pCO2 POC ABG pO2 ABG pO2 ABG HCO3 ABG Base Excess ABG Hemoglobin Oxyhemoglobin Sodium 135 L Potassium Chloride Carbon Dioxide BUN 101 H Creatinine 1.8 H Glucose 117 H POC Glucose 130 H 143 H Lactic Acid Calcium Phosphorus 5.80 H Magnesium Direct Bilirubin AST ALT Alkaline Phosphatase Lactate Dehydrogenase Troponin T C-Reactive Protein Total Protein Albumin Prealbumin Triglycerides Cholesterol LDL Cholesterol Direct HDL Cholesterol Urine pH Urine WBC (Auto) Urine Creatinine Urine Total Protein Fluid Total Protein Vancomycin Trough Rheumatoid Factor Complement C4 Miscellaneous Test Crossmatch 01/17/17 01/17/17 01/17/17 05:30 05:46 11:49 WBC RBC Hgb Hct MCV MCH MCHC RDW Plt Count Lymph % (Auto) [place]nn % (Auto) Lymph # [place]nn # Baso # Seg Neutrophils % Seg Neuts % (Manual) Lymphocytes % (Manual) Monocytes % (Manual) Eosinophils % (Manual) Basophils % (Manual) Nucleated RBC % Seg Neutrophils # Seg Neutrophils # Man Lymphocytes # (Manual) Monocytes # (Manual) Eosinophils # (Manual) Basophils # (Manual) PT INR Fibrinogen dRVVT Confirm Interp Factor V Activity POC ABG pH POC ABG pCO2 POC ABG pO2 ABG pO2 ABG HCO3 ABG Base Excess ABG Hemoglobin Oxyhemoglobin Sodium 134 L Potassium Chloride 95.8 L Carbon Dioxide BUN 66 H Creatinine 1.3 H Glucose 138 H POC Glucose 147 H 124 H Lactic Acid Calcium Phosphorus Magnesium Direct Bilirubin AST ALT Alkaline Phosphatase 254 H Lactate Dehydrogenase Troponin T C-Reactive Protein Total Protein Albumin 1.3 L Prealbumin Triglycerides Cholesterol LDL Cholesterol Direct HDL Cholesterol Urine pH Urine WBC (Auto) Urine Creatinine Urine Total Protein Fluid Total Protein Vancomycin Trough Rheumatoid Factor Complement C4 Miscellaneous Test Crossmatch 01/17/17 01/17/17 01/18/17 17:30 23:41 05:15 WBC RBC Hgb Hct MCV MCH MCHC RDW Plt Count Lymph % (Auto) [place]nn % (Auto) Lymph # [place]nn # Baso # Seg Neutrophils % Seg Neuts % (Manual) Lymphocytes % (Manual) Monocytes % (Manual) Eosinophils % (Manual) Basophils % (Manual) Nucleated RBC % Seg Neutrophils # Seg Neutrophils # Man Lymphocytes # (Manual) Monocytes # (Manual) Eosinophils # (Manual) Basophils # (Manual) PT INR Fibrinogen dRVVT Confirm Interp Factor V Activity POC ABG pH POC ABG pCO2 POC ABG pO2 ABG pO2 ABG HCO3 ABG Base Excess ABG Hemoglobin Oxyhemoglobin Sodium Potassium Chloride Carbon Dioxide BUN 89 H Creatinine 1.7 H Glucose 118 H POC Glucose 137 H 119 H Lactic Acid Calcium Phosphorus Magnesium Direct Bilirubin AST ALT Alkaline Phosphatase Lactate Dehydrogenase Troponin T C-Reactive Protein Total Protein Albumin Prealbumin Triglycerides Cholesterol LDL Cholesterol Direct HDL Cholesterol Urine pH Urine WBC (Auto) Urine Creatinine Urine Total Protein Fluid Total Protein Vancomycin Trough Rheumatoid Factor Complement C4 Miscellaneous Test Crossmatch 01/18/17 01/18/17 01/18/17 05:19 12:16 18:11 WBC RBC Hgb Hct MCV MCH MCHC RDW Plt Count Lymph % (Auto) [place]nn % (Auto) Lymph # [place] # Baso # Seg Neutrophils % Seg Neuts % (Manual) Lymphocytes % (Manual) Monocytes % (Manual) Eosinophils % (Manual) Basophils % (Manual) Nucleated RBC % Seg Neutrophils # Seg Neutrophils # Man Lymphocytes # (Manual) Monocytes # (Manual) Eosinophils # (Manual) Basophils # (Manual) PT INR Fibrinogen dRVVT Confirm Interp Factor V Activity POC ABG pH POC ABG pCO2 POC ABG pO2 ABG pO2 ABG HCO3 ABG Base Excess ABG Hemoglobin Oxyhemoglobin Sodium Potassium Chloride Carbon Dioxide BUN Creatinine Glucose POC Glucose 134 H 188 H 113 H Lactic Acid Calcium Phosphorus Magnesium Direct Bilirubin AST ALT Alkaline Phosphatase Lactate Dehydrogenase Troponin T C-Reactive Protein Total Protein Albumin Prealbumin Triglycerides Cholesterol LDL Cholesterol Direct HDL Cholesterol Urine pH Urine WBC (Auto) Urine Creatinine Urine Total Protein Fluid Total Protein Vancomycin Trough Rheumatoid Factor Complement C4 Miscellaneous Test Crossmatch 01/19/17 01/19/17 01/19/17 00:00 05:30 05:36 WBC RBC Hgb Hct MCV MCH MCHC RDW Plt Count Lymph % (Auto) [place]nn % (Auto) Lymph # [place]nn # Baso # Seg Neutrophils % Seg Neuts % (Manual) Lymphocytes % (Manual) Monocytes % (Manual) Eosinophils % (Manual) Basophils % (Manual) Nucleated RBC % Seg Neutrophils # Seg Neutrophils # Man Lymphocytes # (Manual) Monocytes # (Manual) Eosinophils # (Manual) Basophils # (Manual) PT INR Fibrinogen dRVVT Confirm Interp Factor V Activity POC ABG pH POC ABG pCO2 POC ABG pO2 ABG pO2 ABG HCO3 ABG Base Excess ABG Hemoglobin Oxyhemoglobin Sodium Potassium Chloride Carbon Dioxide BUN 70 H Creatinine 1.5 H Glucose 121 H POC Glucose 137 H 155 H Lactic Acid Calcium Phosphorus 2.10 L D Magnesium Direct Bilirubin AST ALT Alkaline Phosphatase Lactate Dehydrogenase Troponin T C-Reactive Protein Total Protein Albumin Prealbumin Triglycerides Cholesterol LDL Cholesterol Direct HDL Cholesterol Urine pH Urine WBC (Auto) Urine Creatinine Urine Total Protein Fluid Total Protein Vancomycin Trough Rheumatoid Factor Complement C4 Miscellaneous Test Crossmatch 01/19/17 01/19/17 01/19/17 11:59 15:32 17:57 WBC RBC Hgb Hct MCV MCH MCHC RDW Plt Count Lymph % (Auto) [place]nn % (Auto) Lymph # [place]nn # Baso # Seg Neutrophils % Seg Neuts % (Manual) Lymphocytes % (Manual) Monocytes % (Manual) Eosinophils % (Manual) Basophils % (Manual) Nucleated RBC % Seg Neutrophils # Seg Neutrophils # Man Lymphocytes # (Manual) Monocytes # (Manual) Eosinophils # (Manual) Basophils # (Manual) PT INR Fibrinogen dRVVT Confirm Interp Factor V Activity POC ABG pH POC ABG pCO2 33.1 L POC ABG pO2 76 L ABG pO2 ABG HCO3 ABG Base Excess ABG Hemoglobin Oxyhemoglobin Sodium Potassium Chloride Carbon Dioxide BUN Creatinine Glucose POC Glucose 156 H 129 H Lactic Acid Calcium Phosphorus Magnesium Direct Bilirubin AST ALT Alkaline Phosphatase Lactate Dehydrogenase Troponin T C-Reactive Protein Total Protein Albumin Prealbumin Triglycerides Cholesterol LDL Cholesterol Direct HDL Cholesterol Urine pH Urine WBC (Auto) Urine Creatinine Urine Total Protein Fluid Total Protein Vancomycin Trough Rheumatoid Factor Complement C4 Miscellaneous Test Crossmatch 01/19/17 01/20/17 01/20/17 23:49 04:00 05:21 WBC RBC Hgb Hct MCV MCH MCHC RDW Plt Count Lymph % (Auto) [place]nn % (Auto) Lymph # [place]nn # Baso # Seg Neutrophils % Seg Neuts % (Manual) Lymphocytes % (Manual) Monocytes % (Manual) Eosinophils % (Manual) Basophils % (Manual) Nucleated RBC % Seg Neutrophils # Seg Neutrophils # Man Lymphocytes # (Manual) Monocytes # (Manual) Eosinophils # (Manual) Basophils # (Manual) PT INR Fibrinogen dRVVT Confirm Interp Factor V Activity POC ABG pH POC ABG pCO2 POC ABG pO2 ABG pO2 ABG HCO3 ABG Base Excess ABG Hemoglobin Oxyhemoglobin Sodium Potassium Chloride Carbon Dioxide BUN 96 H Creatinine 1.9 H Glucose 106 H POC Glucose 125 H 130 H Lactic Acid Calcium Phosphorus 2.40 L Magnesium Direct Bilirubin AST ALT Alkaline Phosphatase Lactate Dehydrogenase Troponin T C-Reactive Protein Total Protein Albumin Prealbumin Triglycerides Cholesterol LDL Cholesterol Direct HDL Cholesterol Urine pH Urine WBC (Auto) Urine Creatinine Urine Total Protein Fluid Total Protein Vancomycin Trough Rheumatoid Factor Complement C4 Miscellaneous Test Crossmatch 01/20/17 01/20/17 01/20/17 11:58 12:17 17:26 WBC RBC Hgb Hct MCV MCH MCHC RDW Plt Count Lymph % (Auto) Glynn % (Auto) Lymph # Glynn # Baso # Seg Neutrophils % Seg Neuts % (Manual) Lymphocytes % (Manual) Monocytes % (Manual) Eosinophils % (Manual) Basophils % (Manual) Nucleated RBC % Seg Neutrophils # Seg Neutrophils # Man Lymphocytes # (Manual) Monocytes # (Manual) Eosinophils # (Manual) Basophils # (Manual) PT INR Fibrinogen dRVVT Confirm Interp Factor V Activity POC ABG pH POC ABG pCO2 POC ABG pO2 70 L ABG pO2 ABG HCO3 ABG Base Excess ABG Hemoglobin Oxyhemoglobin Sodium Potassium Chloride Carbon Dioxide BUN Creatinine Glucose POC Glucose 118 H 154 H Lactic Acid Calcium Phosphorus Magnesium Direct Bilirubin AST ALT Alkaline Phosphatase Lactate Dehydrogenase Troponin T C-Reactive Protein Total Protein Albumin Prealbumin Triglycerides Cholesterol LDL Cholesterol Direct HDL Cholesterol Urine pH Urine WBC (Auto) Urine Creatinine Urine Total Protein Fluid Total Protein Vancomycin Trough Rheumatoid Factor Complement C4 Miscellaneous Test Crossmatch 01/21/17 01/21/17 01/21/17 04:00 04:56 11:46 WBC RBC Hgb Hct MCV MCH MCHC RDW Plt Count Lymph % (Auto) Glynn % (Auto) Lymph # Glynn # Baso # Seg Neutrophils % Seg Neuts % (Manual) Lymphocytes % (Manual) Monocytes % (Manual) Eosinophils % (Manual) Basophils % (Manual) Nucleated RBC % Seg Neutrophils # Seg Neutrophils # Man Lymphocytes # (Manual) Monocytes # (Manual) Eosinophils # (Manual) Basophils # (Manual) PT INR Fibrinogen dRVVT Confirm Interp Factor V Activity POC ABG pH POC ABG pCO2 POC ABG pO2 ABG pO2 ABG HCO3 ABG Base Excess ABG Hemoglobin Oxyhemoglobin Sodium Potassium 3.5 L Chloride 97.4 L Carbon Dioxide BUN 66 H Creatinine 1.4 H Glucose POC Glucose 116 H 106 H Lactic Acid Calcium Phosphorus 2.10 L Magnesium Direct Bilirubin AST ALT Alkaline Phosphatase Lactate Dehydrogenase Troponin T C-Reactive Protein Total Protein Albumin Prealbumin Triglycerides Cholesterol LDL Cholesterol Direct HDL Cholesterol Urine pH Urine WBC (Auto) Urine Creatinine Urine Total Protein Fluid Total Protein Vancomycin Trough Rheumatoid Factor Complement C4 Miscellaneous Test Crossmatch
--- NOTE | 2017-01-21 13:05 | Progress Note ---
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 * Patient is clinically volume overloaded. Shall arrange for extra dialysis treatment today * Continue IV albumin with Lasix as well * Tolerating TPN well at this time. Shall monitor her electrolytes * monitor for renal recovery * Rate control per cardiology * Dose medications for renal function * Avoid potential nephrotoxins Subjective Date of service: 01/21/17 Principal diagnosis: Acute resp failure on MVS; S/P Acute CVA; Acute Encephalopathy; JUANITA Interval history: Patient remains on the ventilator. Currently on 30% FiO2. Unresponsive. Objective - Vital Signs Vital signs: Vital Signs - 12hr 01/21/17 01/21/17 01/21/17 01:06 01:15 01:16 Temperature Pulse Rate 96 H Pulse Rate [ 102 H 100 H Anterior Bilateral Throughout] Respiratory 24 Rate Respiratory 18 19 Rate [Anterior Bilateral Throughout] Blood Pressure 125/61 O2 Sat by Pulse 100 Oximetry O2 Sat by Pulse Oximetry [ Assessment] 01/21/17 01/21/17 01/21/17 01:30 01:45 02:00 Temperature Pulse Rate 93 H 90 89 Pulse Rate [ Anterior Bilateral Throughout] Respiratory 19 19 16 Rate Respiratory Rate [Anterior Bilateral Throughout] Blood Pressure 111/60 115/57 114/57 O2 Sat by Pulse 100 100 100 Oximetry O2 Sat by Pulse Oximetry [ Assessment] 01/21/17 01/21/17 01/21/17 02:15 02:21 02:30 Temperature Pulse Rate 91 H 91 H 88 Pulse Rate [ Anterior Bilateral Throughout] Respiratory 21 18 22 Rate Respiratory Rate [Anterior Bilateral Throughout] Blood Pressure 128/63 129/70 O2 Sat by Pulse 100 100 100 Oximetry O2 Sat by Pulse Oximetry [ Assessment] 01/21/17 01/21/17 01/21/17 02:45 03:00 03:10 Temperature Pulse Rate 91 H 91 H 91 H Pulse Rate [ Anterior Bilateral Throughout] Respiratory 22 22 Rate Respiratory Rate [Anterior Bilateral Throughout] Blood Pressure 139/80 133/77 133/77 O2 Sat by Pulse 100 100 100 Oximetry O2 Sat by Pulse Oximetry [ Assessment] 01/21/17 01/21/17 01/21/17 03:15 03:30 03:45 Temperature Pulse Rate 91 H 91 H 92 H Pulse Rate [ Anterior Bilateral Throughout] Respiratory 21 22 21 Rate Respiratory Rate [Anterior Bilateral Throughout] Blood Pressure 140/75 131/73 132/82 O2 Sat by Pulse 100 100 100 Oximetry O2 Sat by Pulse Oximetry [ Assessment] 01/21/17 01/21/17 01/21/17 04:00 04:10 04:15 Temperature 98.1 F Pulse Rate 92 H 92 H 98 H Pulse Rate [ Anterior Bilateral Throughout] Respiratory 19 18 22 Rate Respiratory Rate [Anterior Bilateral Throughout] Blood Pressure 139/78 139/78 134/77 O2 Sat by Pulse 100 100 100 Oximetry O2 Sat by Pulse Oximetry [ Assessment] 01/21/17 01/21/17 01/21/17 04:30 04:45 05:00 Temperature 98.1 F Pulse Rate 88 92 H 88 Pulse Rate [ Anterior Bilateral Throughout] Respiratory 22 23 22 Rate Respiratory Rate [Anterior Bilateral Throughout] Blood Pressure 116/54 113/61 116/54 O2 Sat by Pulse 100 99 98 Oximetry O2 Sat by Pulse Oximetry [ Assessment] 01/21/17 01/21/17 01/21/17 05:15 05:30 05:45 Temperature Pulse Rate 86 88 87 Pulse Rate [ Anterior Bilateral Throughout] Respiratory 19 19 22 Rate Respiratory Rate [Anterior Bilateral Throughout] Blood Pressure 107/49 110/53 117/56 O2 Sat by Pulse 98 98 98 Oximetry O2 Sat by Pulse Oximetry [ Assessment] 01/21/17 01/21/17 01/21/17 06:00 06:12 06:15 Temperature Pulse Rate 89 91 H Pulse Rate [ Anterior Bilateral Throughout] Respiratory 22 18 21 Rate Respiratory Rate [Anterior Bilateral Throughout] Blood Pressure 113/55 120/61 O2 Sat by Pulse 99 100 99 Oximetry O2 Sat by Pulse Oximetry [ Assessment] 01/21/17 01/21/17 01/21/17 06:30 06:45 07:00 Temperature Pulse Rate 92 H 88 86 Pulse Rate [ Anterior Bilateral Throughout] Respiratory 20 14 17 Rate Respiratory Rate [Anterior Bilateral Throughout] Blood Pressure 120/63 120/57 111/51 O2 Sat by Pulse 100 98 100 Oximetry O2 Sat by Pulse Oximetry [ Assessment] 01/21/17 01/21/17 01/21/17 07:15 07:30 07:44 Temperature Pulse Rate 86 86 Pulse Rate [ 88 Anterior Bilateral Throughout] Respiratory 22 19 Rate Respiratory 30 H Rate [Anterior Bilateral Throughout] Blood Pressure 105/55 109/52 O2 Sat by Pulse 98 100 Oximetry O2 Sat by Pulse Oximetry [ Assessment] 01/21/17 01/21/17 01/21/17 07:45 07:47 07:54 Temperature Pulse Rate 91 H Pulse Rate [ 91 H Anterior Bilateral Throughout] Respiratory 14 Rate Respiratory 30 H Rate [Anterior Bilateral Throughout] Blood Pressure 123/69 O2 Sat by Pulse 99 Oximetry O2 Sat by Pulse 98 Oximetry [ Assessment] 01/21/17 01/21/17 01/21/17 08:00 08:15 08:30 Temperature 99.3 F Pulse Rate 93 H 93 H 93 H Pulse Rate [ Anterior Bilateral Throughout] Respiratory 20 30 H 26 H Rate Respiratory Rate [Anterior Bilateral Throughout] Blood Pressure 124/66 124/62 117/63 O2 Sat by Pulse 100 96 100 Oximetry O2 Sat by Pulse Oximetry [ Assessment] 01/21/17 01/21/17 01/21/17 08:45 09:00 09:15 Temperature Pulse Rate 95 H 92 H 96 H Pulse Rate [ Anterior Bilateral Throughout] Respiratory 23 21 22 Rate Respiratory Rate [Anterior Bilateral Throughout] Blood Pressure 118/66 116/61 122/66 O2 Sat by Pulse 100 98 99 Oximetry O2 Sat by Pulse Oximetry [ Assessment] 01/21/17 01/21/17 01/21/17 09:26 09:30 09:45 Temperature Pulse Rate 89 95 H 98 H Pulse Rate [ Anterior Bilateral Throughout] Respiratory 32 H 34 H 35 H Rate Respiratory Rate [Anterior Bilateral Throughout] Blood Pressure 122/66 122/67 133/71 O2 Sat by Pulse 97 99 99 Oximetry O2 Sat by Pulse Oximetry [ Assessment] 01/21/17 01/21/17 01/21/17 09:53 10:00 10:13 Temperature Pulse Rate 96 H 102 H 94 H Pulse Rate [ Anterior Bilateral Throughout] Respiratory 48 H Rate Respiratory Rate [Anterior Bilateral Throughout] Blood Pressure 133/71 129/75 129/75 O2 Sat by Pulse 98 98 Oximetry O2 Sat by Pulse Oximetry [ Assessment] 01/21/17 01/21/17 01/21/17 10:15 10:30 10:45 Temperature Pulse Rate 96 H 95 H 99 H Pulse Rate [ Anterior Bilateral Throughout] Respiratory 21 15 29 H Rate Respiratory Rate [Anterior Bilateral Throughout] Blood Pressure 122/64 125/71 116/61 O2 Sat by Pulse 98 98 98 Oximetry O2 Sat by Pulse Oximetry [ Assessment] 01/21/17 01/21/17 01/21/17 11:00 11:15 12:00 Temperature 99.6 F Pulse Rate 97 H 97 H 94 H Pulse Rate [ Anterior Bilateral Throughout] Respiratory 24 26 H Rate Respiratory Rate [Anterior Bilateral Throughout] Blood Pressure 111/64 120/64 O2 Sat by Pulse 98 97 100 Oximetry O2 Sat by Pulse Oximetry [ Assessment] - General Appearance General appearance: well-developed, well-nourished, appears stated age, intubated EENT: PERRL, mucous membranes moist Neck: no thyromegaly, other (tracheostomy tube in place. Connected to the ventilator.) Respiratory: Present: Ronchi (bilateral scattered rhonchi) Cardiology: regular, normal heart rate Gastrointestinal: normoactive bowel sounds Integumentary: other (2+ edema) - Lab 01/15/17 12:45 01/21/17 04:00 Most recent lab results ABG pH 7.450 pH Units (7.350-7.450) 12/05/16 Unknown ABG pCO2 29.6 mm Hg 12/05/16 Unknown ABG pO2 75.2 mm Hg (80.0-90.0) L 12/05/16 Unknown ABG HCO3 20.1 mmol/L (20.0-26.0) 12/05/16 Unknown ABG O2 Saturation 96.8 % (95.0-99.0) 12/05/16 Unknown Calcium 8.8 mg/dL (8.4-10.2) 01/21/17 04:00 Phosphorus 2.10 mg/dL (2.5-4.5) L 01/21/17 04:00 Magnesium 2.00 mg/dL (1.7-2.3) 01/19/17 05:30 Urine Creatinine 19.7 mg/dL (0.1-20.0) 11/12/16 10:18 Urine Sodium 36 mEq/L 09/16/16 19:19 Urine Total Protein 16 mg/dL (5-11.8) H 09/16/16 19:19
[2017-01-21] MEDS ORDERED: NACL 0.9% 100 ML IV PRN (13:06)
--- NOTE | 2017-01-21 13:27 | Progress Note ---
Assessment and Plan Acute Hypoxemic Respiratory Failure (now with exacerbation and back on MVS) Hypertension (unable to receive p.o. meds) Atrial Fibrillation with RVR s/p tracheostomy Acute encephalopathy s/p CVA Oropharyngeal dysphagia Enterococcal bacteremia sepsis syndrome Sacral Decubitus Ulcer (s/p surgical debridement) Anemia Obesity JUANITA now on hemodialysis Enteric Fistula - continue to hold tube feeds due to persistent emesis; continue reglan at 5mg IV q6h - will consider right chest tube placement for continuous suction and see if aids weaning - continue fentanyl patch for pain issues especially s/p debridement - continue wound care per WCT and RN's (she is s/p surgical debridement) - continue anti-infectives per ID recs - prn CRP & lactate levels if clinically indicated (Follow WBC also) - keep on with daily PSV trials and / or T-piece as tolerated (was on 03/07 prior to emesis today) - continue TPN administration - continue scopolamine for secretion control - continue to wean FiO2 for sats > 94% - continue bronchodilators and pulmonary toilet - VAP bundle addressed - continue prn IV metorolol - continue metoprolol and amlodipine (hold for hypotension) - continue to follow electrolytes and correct as necessary - continue GI & VTE prophylaxis - Continue flu & pneumovax per protocol - ethics consult placed and pending .....she remains critically ill on life sustaining interventions including MVS and at risk for further deterioration including ....30' CCT today without overlap ...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 Objective Vital Signs - 12hr 01/21/17 01/21/17 01/21/17 01:30 01:45 02:00 Temperature Pulse Rate 93 H 90 89 Pulse Rate [ Anterior Bilateral Throughout] Respiratory 19 19 16 Rate Respiratory Rate [Anterior Bilateral Throughout] Blood Pressure 111/60 115/57 114/57 O2 Sat by Pulse 100 100 100 Oximetry O2 Sat by Pulse Oximetry [ Assessment] 01/21/17 01/21/17 01/21/17 02:15 02:21 02:30 Temperature Pulse Rate 91 H 91 H 88 Pulse Rate [ Anterior Bilateral Throughout] Respiratory 21 18 22 Rate Respiratory Rate [Anterior Bilateral Throughout] Blood Pressure 128/63 129/70 O2 Sat by Pulse 100 100 100 Oximetry O2 Sat by Pulse Oximetry [ Assessment] 01/21/17 01/21/17 01/21/17 02:45 03:00 03:10 Temperature Pulse Rate 91 H 91 H 91 H Pulse Rate [ Anterior Bilateral Throughout] Respiratory 22 22 Rate Respiratory Rate [Anterior Bilateral Throughout] Blood Pressure 139/80 133/77 133/77 O2 Sat by Pulse 100 100 100 Oximetry O2 Sat by Pulse Oximetry [ Assessment] 01/21/17 01/21/17 01/21/17 03:15 03:30 03:45 Temperature Pulse Rate 91 H 91 H 92 H Pulse Rate [ Anterior Bilateral Throughout] Respiratory 21 22 21 Rate Respiratory Rate [Anterior Bilateral Throughout] Blood Pressure 140/75 131/73 132/82 O2 Sat by Pulse 100 100 100 Oximetry O2 Sat by Pulse Oximetry [ Assessment] 01/21/17 01/21/17 01/21/17 04:00 04:10 04:15 Temperature 98.1 F Pulse Rate 92 H 92 H 98 H Pulse Rate [ Anterior Bilateral Throughout] Respiratory 19 18 22 Rate Respiratory Rate [Anterior Bilateral Throughout] Blood Pressure 139/78 139/78 134/77 O2 Sat by Pulse 100 100 100 Oximetry O2 Sat by Pulse Oximetry [ Assessment] 01/21/17 01/21/17 01/21/17 04:30 04:45 05:00 Temperature 98.1 F Pulse Rate 88 92 H 88 Pulse Rate [ Anterior Bilateral Throughout] Respiratory 22 23 22 Rate Respiratory Rate [Anterior Bilateral Throughout] Blood Pressure 116/54 113/61 116/54 O2 Sat by Pulse 100 99 98 Oximetry O2 Sat by Pulse Oximetry [ Assessment] 01/21/17 01/21/17 01/21/17 05:15 05:30 05:45 Temperature Pulse Rate 86 88 87 Pulse Rate [ Anterior Bilateral Throughout] Respiratory 19 19 22 Rate Respiratory Rate [Anterior Bilateral Throughout] Blood Pressure 107/49 110/53 117/56 O2 Sat by Pulse 98 98 98 Oximetry O2 Sat by Pulse Oximetry [ Assessment] 01/21/17 01/21/17 01/21/17 06:00 06:12 06:15 Temperature Pulse Rate 89 91 H Pulse Rate [ Anterior Bilateral Throughout] Respiratory 22 18 21 Rate Respiratory Rate [Anterior Bilateral Throughout] Blood Pressure 113/55 120/61 O2 Sat by Pulse 99 100 99 Oximetry O2 Sat by Pulse Oximetry [ Assessment] 01/21/17 01/21/17 01/21/17 06:30 06:45 07:00 Temperature Pulse Rate 92 H 88 86 Pulse Rate [ Anterior Bilateral Throughout] Respiratory 20 14 17 Rate Respiratory Rate [Anterior Bilateral Throughout] Blood Pressure 120/63 120/57 111/51 O2 Sat by Pulse 100 98 100 Oximetry O2 Sat by Pulse Oximetry [ Assessment] 01/21/17 01/21/17 01/21/17 07:15 07:30 07:44 Temperature Pulse Rate 86 86 Pulse Rate [ 88 Anterior Bilateral Throughout] Respiratory 22 19 Rate Respiratory 30 H Rate [Anterior Bilateral Throughout] Blood Pressure 105/55 109/52 O2 Sat by Pulse 98 100 Oximetry O2 Sat by Pulse Oximetry [ Assessment] 01/21/17 01/21/17 01/21/17 07:45 07:47 07:54 Temperature Pulse Rate 91 H Pulse Rate [ 91 H Anterior Bilateral Throughout] Respiratory 14 Rate Respiratory 30 H Rate [Anterior Bilateral Throughout] Blood Pressure 123/69 O2 Sat by Pulse 99 Oximetry O2 Sat by Pulse 98 Oximetry [ Assessment] 01/21/17 01/21/17 01/21/17 08:00 08:15 08:30 Temperature 99.3 F Pulse Rate 93 H 93 H 93 H Pulse Rate [ Anterior Bilateral Throughout] Respiratory 20 30 H 26 H Rate Respiratory Rate [Anterior Bilateral Throughout] Blood Pressure 124/66 124/62 117/63 O2 Sat by Pulse 100 96 100 Oximetry O2 Sat by Pulse Oximetry [ Assessment] 01/21/17 01/21/17 01/21/17 08:45 09:00 09:15 Temperature Pulse Rate 95 H 92 H 96 H Pulse Rate [ Anterior Bilateral Throughout] Respiratory 23 21 22 Rate Respiratory Rate [Anterior Bilateral Throughout] Blood Pressure 118/66 116/61 122/66 O2 Sat by Pulse 100 98 99 Oximetry O2 Sat by Pulse Oximetry [ Assessment] 01/21/17 01/21/17 01/21/17 09:26 09:30 09:45 Temperature Pulse Rate 89 95 H 98 H Pulse Rate [ Anterior Bilateral Throughout] Respiratory 32 H 34 H 35 H Rate Respiratory Rate [Anterior Bilateral Throughout] Blood Pressure 122/66 122/67 133/71 O2 Sat by Pulse 97 99 99 Oximetry O2 Sat by Pulse Oximetry [ Assessment] 01/21/17 01/21/17 01/21/17 09:53 10:00 10:13 Temperature Pulse Rate 96 H 102 H 94 H Pulse Rate [ Anterior Bilateral Throughout] Respiratory 48 H Rate Respiratory Rate [Anterior Bilateral Throughout] Blood Pressure 133/71 129/75 129/75 O2 Sat by Pulse 98 98 Oximetry O2 Sat by Pulse Oximetry [ Assessment] 01/21/17 01/21/17 01/21/17 10:15 10:30 10:45 Temperature Pulse Rate 96 H 95 H 99 H Pulse Rate [ Anterior Bilateral Throughout] Respiratory 21 15 29 H Rate Respiratory Rate [Anterior Bilateral Throughout] Blood Pressure 122/64 125/71 116/61 O2 Sat by Pulse 98 98 98 Oximetry O2 Sat by Pulse Oximetry [ Assessment] 01/21/17 01/21/17 01/21/17 11:00 11:15 12:00 Temperature 99.6 F Pulse Rate 97 H 97 H 94 H Pulse Rate [ Anterior Bilateral Throughout] Respiratory 24 26 H Rate Respiratory Rate [Anterior Bilateral Throughout] Blood Pressure 111/64 120/64 O2 Sat by Pulse 98 97 100 Oximetry O2 Sat by Pulse Oximetry [ Assessment] Constitutional: appears uncomfortable, other (not tracking) Eyes: non-icteric, other (tracheostomy tube in midline of neck) ENT: oropharynx moist, oropharyngeal exudate pre Neck: supple, no lymphadenopathy, no JVD, other (no thyromegaly) Effort: mildly labored Ascultation: Bilateral: diminished breath sounds (bases R>L), rhonchi (and referred upper airway sounds) Percussion: Right: dull (base) Cardiovascular: regular rate and rhythm, other (no rubs / murmurs) Gastrointestinal: hypoactive bowel sounds, soft, non-tender, non-distended, other (RLQ & LUQ stomas with colostomy bags) Integumentary: decubitus ulcer (sacral; stage 4 s/p surgical debridement), other (no rash; no cellulitis; poor turgor) Extremities: no cyanosis, pulses normal, no ischemia or petechiae, edema (1+ bilaterally) Neurologic: pupils equal and round, unable to assess, other (encephalopathic) Psychiatric: other (unable to assess) CBC and BMP: 01/26/17 04:20 01/26/17 04:20 ABG, PT/INR, D-dimer: ABG POC ABG pH 7.436 (7.35-7.45) 01/20/17 12: ABG pH 7.450 pH Units (7.350-7.450) 12/05/16 Unknown POC ABG pCO2 35.3 (35-45) 01/20/17 12: ABG pCO2 29.6 mm Hg 12/05/16 Unknown POC ABG pO2 70 (80-105) L 01/20/17 12: ABG pO2 75.2 mm Hg (80.0-90.0) L 12/05/16 Unknown POC ABG HCO3 23.8 01/20/17 12:17 POC ABG Total CO2 25 01/20/17 12:17 POC ABG O2 Sat 94 01/20/17 12: ABG O2 Saturation 96.8 % (95.0-99.0) 12/05/16 Unknown PT/INR, D-dimer PT 15.4 Sec. (12.2-14.9) H 01/13/17 15:50 INR 1.16 (0.87-1.13) H 01/13/17 15:50 Abnormal lab findings: Abnormal Labs 09/03/16 09/03/16 09/03/16 00:03 00:10 00:10 WBC 13.9 H RBC 5.95 H Hgb Hct 44.0 H MCV 74 L MCH 22 L MCHC RDW 17.5 H Plt Count Lymph % (Auto) Wilkin % (Auto) Lymph # Wilkin # Baso # Seg Neutrophils % Seg Neuts % (Manual) Lymphocytes % (Manual) 54.0 H Monocytes % (Manual) Eosinophils % (Manual) Basophils % (Manual) Nucleated RBC % Seg Neutrophils # Seg Neutrophils # Man Lymphocytes # (Manual) 7.5 H Monocytes # (Manual) Eosinophils # (Manual) Basophils # (Manual) PT INR Fibrinogen dRVVT Confirm Interp Factor V Activity POC ABG pH POC ABG pCO2 POC ABG pO2 ABG pO2 ABG HCO3 ABG Base Excess ABG Hemoglobin Oxyhemoglobin Sodium Potassium 2.8 L* Chloride Carbon Dioxide 21 L BUN Creatinine 1.7 H Glucose 159 H POC Glucose 177 H Lactic Acid Calcium Phosphorus Magnesium Direct Bilirubin AST ALT Alkaline Phosphatase Lactate Dehydrogenase Troponin T C-Reactive Protein Total Protein Albumin Prealbumin Triglycerides Cholesterol LDL Cholesterol Direct HDL Cholesterol Urine pH Urine WBC (Auto) Urine Creatinine Urine Total Protein Fluid Total Protein Vancomycin Trough Rheumatoid Factor Complement C4 Miscellaneous Test Crossmatch 09/03/16 09/03/16 09/03/16 12:12 15:07 16:20 WBC RBC Hgb Hct MCV MCH MCHC RDW Plt Count Lymph % (Auto) Wilkin % (Auto) Lymph # Wilkin # Baso # Seg Neutrophils % Seg Neuts % (Manual) Lymphocytes % (Manual) Monocytes % (Manual) Eosinophils % (Manual) Basophils % (Manual) Nucleated RBC % Seg Neutrophils # Seg Neutrophils # Man Lymphocytes # (Manual) Monocytes # (Manual) Eosinophils # (Manual) Basophils # (Manual) PT INR Fibrinogen dRVVT Confirm Interp Factor V Activity POC ABG pH 7.452 H POC ABG pCO2 POC ABG pO2 ABG pO2 ABG HCO3 ABG Base Excess ABG Hemoglobin Oxyhemoglobin Sodium Potassium Chloride Carbon Dioxide BUN Creatinine Glucose POC Glucose 178 H Lactic Acid Calcium Phosphorus 2.20 L Magnesium 1.60 L Direct Bilirubin AST ALT Alkaline Phosphatase Lactate Dehydrogenase Troponin T C-Reactive Protein Total Protein Albumin Prealbumin Triglycerides Cholesterol LDL Cholesterol Direct HDL Cholesterol Urine pH Urine WBC (Auto) Urine Creatinine Urine Total Protein Fluid Total Protein Vancomycin Trough Rheumatoid Factor Complement C4 Miscellaneous Test Crossmatch 09/03/16 09/03/16 09/03/16 17:57 17:58 23:50 WBC RBC Hgb Hct MCV MCH MCHC RDW Plt Count Lymph % (Auto) Wilkin % (Auto) Lymph # Wilkin # Baso # Seg Neutrophils % Seg Neuts % (Manual) Lymphocytes % (Manual) Monocytes % (Manual) Eosinophils % (Manual) Basophils % (Manual) Nucleated RBC % Seg Neutrophils # Seg Neutrophils # Man Lymphocytes # (Manual) Monocytes # (Manual) Eosinophils # (Manual) Basophils # (Manual) PT INR Fibrinogen dRVVT Confirm Interp Factor V Activity POC ABG pH POC ABG pCO2 POC ABG pO2 ABG pO2 ABG HCO3 ABG Base Excess ABG Hemoglobin Oxyhemoglobin Sodium Potassium Chloride Carbon Dioxide BUN Creatinine Glucose POC Glucose 162 H 145 H Lactic Acid Calcium Phosphorus 2.30 L Magnesium Direct Bilirubin AST ALT Alkaline Phosphatase Lactate Dehydrogenase Troponin T C-Reactive Protein Total Protein Albumin Prealbumin Triglycerides Cholesterol LDL Cholesterol Direct HDL Cholesterol Urine pH Urine WBC (Auto) Urine Creatinine Urine Total Protein Fluid Total Protein Vancomycin Trough Rheumatoid Factor Complement C4 Miscellaneous Test Crossmatch 09/04/16 09/04/16 09/04/16 03:31 03:31 05:42 WBC RBC Hgb 9.7 L D Hct MCV 72 L MCH 23 L MCHC RDW 17.5 H Plt Count Lymph % (Auto) 11.1 L Wilkin % (Auto) Lymph # Wilkin # Baso # Seg Neutrophils % 84.3 H Seg Neuts % (Manual) Lymphocytes % (Manual) Monocytes % (Manual) Eosinophils % (Manual) Basophils % (Manual) Nucleated RBC % Seg Neutrophils # 8.9 H Seg Neutrophils # Man Lymphocytes # (Manual) Monocytes # (Manual) Eosinophils # (Manual) Basophils # (Manual) PT INR Fibrinogen dRVVT Confirm Interp Factor V Activity POC ABG pH POC ABG pCO2 POC ABG pO2 ABG pO2 ABG HCO3 ABG Base Excess ABG Hemoglobin Oxyhemoglobin Sodium 135 L Potassium 2.9 L* Chloride 97.2 L Carbon Dioxide 19 L BUN Creatinine 1.7 H Glucose 170 H POC Glucose 152 H Lactic Acid Calcium Phosphorus Magnesium Direct Bilirubin AST ALT Alkaline Phosphatase Lactate Dehydrogenase Troponin T C-Reactive Protein Total Protein Albumin Prealbumin Triglycerides 160 H Cholesterol LDL Cholesterol Direct HDL Cholesterol 31 L Urine pH Urine WBC (Auto) Urine Creatinine Urine Total Protein Fluid Total Protein Vancomycin Trough Rheumatoid Factor Complement C4 Miscellaneous Test Crossmatch 09/04/16 09/04/16 09/04/16 11:34 17:46 23:29 WBC RBC Hgb Hct MCV MCH MCHC RDW Plt Count Lymph % (Auto) Wilkin % (Auto) Lymph # Wilkin # Baso # Seg Neutrophils % Seg Neuts % (Manual) Lymphocytes % (Manual) Monocytes % (Manual) Eosinophils % (Manual) Basophils % (Manual) Nucleated RBC % Seg Neutrophils # Seg Neutrophils # Man Lymphocytes # (Manual) Monocytes # (Manual) Eosinophils # (Manual) Basophils # (Manual) PT INR Fibrinogen dRVVT Confirm Interp Factor V Activity POC ABG pH POC ABG pCO2 POC ABG pO2 ABG pO2 ABG HCO3 ABG Base Excess ABG Hemoglobin Oxyhemoglobin Sodium Potassium Chloride Carbon Dioxide BUN Creatinine Glucose POC Glucose 165 H 210 H 139 H Lactic Acid Calcium Phosphorus Magnesium Direct Bilirubin AST ALT Alkaline Phosphatase Lactate Dehydrogenase Troponin T C-Reactive Protein Total Protein Albumin Prealbumin Triglycerides Cholesterol LDL Cholesterol Direct HDL Cholesterol Urine pH Urine WBC (Auto) Urine Creatinine Urine Total Protein Fluid Total Protein Vancomycin Trough Rheumatoid Factor Complement C4 Miscellaneous Test Crossmatch 09/05/16 09/05/16 09/05/16 04:05 04:05 05:38 WBC RBC Hgb Hct MCV 76 L D MCH 23 L MCHC RDW 17.8 H Plt Count Lymph % (Auto) Wilkin % (Auto) Lymph # Wilkin # Baso # Seg Neutrophils % Seg Neuts % (Manual) Lymphocytes % (Manual) Monocytes % (Manual) Eosinophils % (Manual) Basophils % (Manual) Nucleated RBC % Seg Neutrophils # Seg Neutrophils # Man Lymphocytes # (Manual) Monocytes # (Manual) Eosinophils # (Manual) Basophils # (Manual) PT INR Fibrinogen dRVVT Confirm Interp Factor V Activity POC ABG pH POC ABG pCO2 POC ABG pO2 ABG pO2 ABG HCO3 ABG Base Excess ABG Hemoglobin Oxyhemoglobin Sodium 134 L Potassium Chloride Carbon Dioxide 18 L BUN Creatinine 1.8 H Glucose 192 H POC Glucose 175 H Lactic Acid Calcium Phosphorus Magnesium Direct Bilirubin AST ALT Alkaline Phosphatase Lactate Dehydrogenase Troponin T C-Reactive Protein Total Protein Albumin Prealbumin Triglycerides Cholesterol LDL Cholesterol Direct HDL Cholesterol Urine pH Urine WBC (Auto) Urine Creatinine Urine Total Protein Fluid Total Protein Vancomycin Trough Rheumatoid Factor Complement C4 Miscellaneous Test Crossmatch 09/05/16 09/05/16 09/05/16 11:38 17:48 23:22 WBC RBC Hgb Hct MCV MCH MCHC RDW Plt Count Lymph % (Auto) Wilkin % (Auto) Lymph # Wilkin # Baso # Seg Neutrophils % Seg Neuts % (Manual) Lymphocytes % (Manual) Monocytes % (Manual) Eosinophils % (Manual) Basophils % (Manual) Nucleated RBC % Seg Neutrophils # Seg Neutrophils # Man Lymphocytes # (Manual) Monocytes # (Manual) Eosinophils # (Manual) Basophils # (Manual) PT INR Fibrinogen dRVVT Confirm Interp Factor V Activity POC ABG pH POC ABG pCO2 POC ABG pO2 ABG pO2 ABG HCO3 ABG Base Excess ABG Hemoglobin Oxyhemoglobin Sodium Potassium Chloride Carbon Dioxide BUN Creatinine Glucose POC Glucose 164 H 186 H 195 H Lactic Acid Calcium Phosphorus Magnesium Direct Bilirubin AST ALT Alkaline Phosphatase Lactate Dehydrogenase Troponin T C-Reactive Protein Total Protein Albumin Prealbumin Triglycerides Cholesterol LDL Cholesterol Direct HDL Cholesterol Urine pH Urine WBC (Auto) Urine Creatinine Urine Total Protein Fluid Total Protein Vancomycin Trough Rheumatoid Factor Complement C4 Miscellaneous Test Crossmatch 09/06/16 09/06/16 09/06/16 04:12 05:59 07:32 WBC RBC Hgb Hct MCV MCH MCHC RDW Plt Count Lymph % (Auto) Wilkin % (Auto) Lymph # Wilkin # Baso # Seg Neutrophils % Seg Neuts % (Manual) Lymphocytes % (Manual) Monocytes % (Manual) Eosinophils % (Manual) Basophils % (Manual) Nucleated RBC % Seg Neutrophils # Seg Neutrophils # Man Lymphocytes # (Manual) Monocytes # (Manual) Eosinophils # (Manual) Basophils # (Manual) PT INR Fibrinogen dRVVT Confirm Interp Factor V Activity POC ABG pH 7.514 H POC ABG pCO2 29.1 L POC ABG pO2 72 L ABG pO2 ABG HCO3 ABG Base Excess ABG Hemoglobin Oxyhemoglobin Sodium 133 L Potassium 3.4 L Chloride 94.9 L Carbon Dioxide 19 L BUN 30 H Creatinine 2.1 H Glucose 139 H POC Glucose 146 H Lactic Acid Calcium Phosphorus Magnesium Direct Bilirubin AST ALT Alkaline Phosphatase Lactate Dehydrogenase Troponin T C-Reactive Protein Total Protein Albumin Prealbumin Triglycerides Cholesterol LDL Cholesterol Direct HDL Cholesterol Urine pH Urine WBC (Auto) Urine Creatinine Urine Total Protein Fluid Total Protein Vancomycin Trough Rheumatoid Factor Complement C4 Miscellaneous Test Crossmatch 09/06/16 09/06/16 09/06/16 11:57 17:58 19:02 WBC RBC Hgb Hct MCV MCH MCHC RDW Plt Count Lymph % (Auto) Wilkin % (Auto) Lymph # Wilkin # Baso # Seg Neutrophils % Seg Neuts % (Manual) Lymphocytes % (Manual) Monocytes % (Manual) Eosinophils % (Manual) Basophils % (Manual) Nucleated RBC % Seg Neutrophils # Seg Neutrophils # Man Lymphocytes # (Manual) Monocytes # (Manual) Eosinophils # (Manual) Basophils # (Manual) PT INR Fibrinogen dRVVT Confirm Interp Factor V Activity POC ABG pH 7.465 H POC ABG pCO2 32.0 L POC ABG pO2 ABG pO2 ABG HCO3 ABG Base Excess ABG Hemoglobin Oxyhemoglobin Sodium Potassium Chloride Carbon Dioxide BUN Creatinine Glucose POC Glucose 165 H 160 H Lactic Acid Calcium Phosphorus Magnesium Direct Bilirubin AST ALT Alkaline Phosphatase Lactate Dehydrogenase Troponin T C-Reactive Protein Total Protein Albumin Prealbumin Triglycerides Cholesterol LDL Cholesterol Direct HDL Cholesterol Urine pH Urine WBC (Auto) Urine Creatinine Urine Total Protein Fluid Total Protein Vancomycin Trough Rheumatoid Factor Complement C4 Miscellaneous Test Crossmatch 09/06/16 09/07/16 09/07/16 23:45 02:47 02:47 WBC RBC Hgb Hct MCV MCH MCHC RDW Plt Count Lymph % (Auto) Wilkin % (Auto) Lymph # Wilkin # Baso # Seg Neutrophils % Seg Neuts % (Manual) Lymphocytes % (Manual) Monocytes % (Manual) Eosinophils % (Manual) Basophils % (Manual) Nucleated RBC % Seg Neutrophils # Seg Neutrophils # Man Lymphocytes # (Manual) Monocytes # (Manual) Eosinophils # (Manual) Basophils # (Manual) PT INR Fibrinogen dRVVT Confirm Interp Factor V Activity POC ABG pH POC ABG pCO2 POC ABG pO2 ABG pO2 ABG HCO3 ABG Base Excess ABG Hemoglobin Oxyhemoglobin Sodium Potassium Chloride Carbon Dioxide BUN Creatinine Glucose POC Glucose 204 H Lactic Acid Calcium Phosphorus Magnesium Direct Bilirubin AST ALT Alkaline Phosphatase Lactate Dehydrogenase Troponin T C-Reactive Protein Total Protein Albumin Prealbumin Triglycerides Cholesterol LDL Cholesterol Direct HDL Cholesterol Urine pH Urine WBC (Auto) 68.0 H Urine Creatinine 106.1 H Urine Total Protein Fluid Total Protein Vancomycin Trough Rheumatoid Factor Complement C4 Miscellaneous Test Crossmatch 09/07/16 09/07/16 09/07/16 04:50 06:19 06:39 WBC RBC Hgb Hct MCV MCH MCHC RDW Plt Count Lymph % (Auto) Wilkin % (Auto) Lymph # Wilkin # Baso # Seg Neutrophils % Seg Neuts % (Manual) Lymphocytes % (Manual) Monocytes % (Manual) Eosinophils % (Manual) Basophils % (Manual) Nucleated RBC % Seg Neutrophils # Seg Neutrophils # Man Lymphocytes # (Manual) Monocytes # (Manual) Eosinophils # (Manual) Basophils # (Manual) PT INR Fibrinogen dRVVT Confirm Interp Factor V Activity POC ABG pH 7.457 H POC ABG pCO2 32.1 L POC ABG pO2 76 L ABG pO2 ABG HCO3 ABG Base Excess ABG Hemoglobin Oxyhemoglobin Sodium 132 L Potassium Chloride 94.7 L Carbon Dioxide BUN 53 H Creatinine 2.9 H Glucose 151 H POC Glucose 149 H Lactic Acid Calcium Phosphorus Magnesium Direct Bilirubin AST ALT Alkaline Phosphatase Lactate Dehydrogenase Troponin T C-Reactive Protein Total Protein Albumin Prealbumin Triglycerides Cholesterol LDL Cholesterol Direct HDL Cholesterol Urine pH Urine WBC (Auto) Urine Creatinine Urine Total Protein Fluid Total Protein Vancomycin Trough Rheumatoid Factor Complement C4 Miscellaneous Test Crossmatch 09/07/16 09/07/16 09/07/16 09:20 11:43 11:43 WBC 19.4 H RBC Hgb 8.3 L Hct 26.4 L D MCV 72 L D MCH 22 L MCHC RDW 17.9 H Plt Count Lymph % (Auto) 8.5 L Wilkin % (Auto) Lymph # Wilkin # 1.0 H Baso # Seg Neutrophils % 85.8 H Seg Neuts % (Manual) Lymphocytes % (Manual) Monocytes % (Manual) Eosinophils % (Manual) Basophils % (Manual) Nucleated RBC % Seg Neutrophils # 16.6 H Seg Neutrophils # Man Lymphocytes # (Manual) Monocytes # (Manual) Eosinophils # (Manual) Basophils # (Manual) PT INR Fibrinogen dRVVT Confirm Interp Factor V Activity POC ABG pH POC ABG pCO2 POC ABG pO2 ABG pO2 ABG HCO3 ABG Base Excess ABG Hemoglobin Oxyhemoglobin Sodium 134 L Potassium Chloride 97.2 L Carbon Dioxide 20 L BUN 58 H Creatinine 2.9 H Glucose 147 H POC Glucose Lactic Acid Calcium Phosphorus 2.40 L Magnesium 2.40 H Direct Bilirubin AST ALT Alkaline Phosphatase Lactate Dehydrogenase Troponin T C-Reactive Protein Total Protein 5.8 L Albumin 2.2 L Prealbumin Triglycerides Cholesterol LDL Cholesterol Direct HDL Cholesterol Urine pH Urine WBC (Auto) Urine Creatinine Urine Total Protein Fluid Total Protein Vancomycin Trough Rheumatoid Factor Complement C4 58 H Miscellaneous Test Crossmatch 09/07/16 09/07/16 09/07/16 11:50 16:00 17:31 WBC RBC Hgb Hct MCV MCH MCHC RDW Plt Count Lymph % (Auto) Wilkin % (Auto) Lymph # Wilkin # Baso # Seg Neutrophils % Seg Neuts % (Manual) Lymphocytes % (Manual) Monocytes % (Manual) Eosinophils % (Manual) Basophils % (Manual) Nucleated RBC % Seg Neutrophils # Seg Neutrophils # Man Lymphocytes # (Manual) Monocytes # (Manual) Eosinophils # (Manual) Basophils # (Manual) PT INR Fibrinogen dRVVT Confirm Interp Factor V Activity POC ABG pH POC ABG pCO2 POC ABG pO2 158 H ABG pO2 ABG HCO3 ABG Base Excess ABG Hemoglobin Oxyhemoglobin Sodium Potassium Chloride Carbon Dioxide BUN Creatinine Glucose POC Glucose 175 H Lactic Acid Calcium Phosphorus Magnesium Direct Bilirubin AST ALT Alkaline Phosphatase Lactate Dehydrogenase Troponin T C-Reactive Protein Total Protein Albumin Prealbumin Triglycerides Cholesterol LDL Cholesterol Direct HDL Cholesterol Urine pH Urine WBC (Auto) Urine Creatinine 66.3 H Urine Total Protein Fluid Total Protein Vancomycin Trough Rheumatoid Factor Complement C4 Miscellaneous Test Crossmatch 09/07/16 09/08/16 09/08/16 23:50 05:46 06:18 WBC 17.8 H RBC 3.58 L Hgb 8.1 L Hct 25.5 L MCV 71 L MCH 23 L MCHC RDW 18.4 H Plt Count Lymph % (Auto) Wilkin % (Auto) Lymph # Wilkin # Baso # Seg Neutrophils % Seg Neuts % (Manual) 92.0 H Lymphocytes % (Manual) 6.0 L Monocytes % (Manual) Eosinophils % (Manual) Basophils % (Manual) Nucleated RBC % Seg Neutrophils # Seg Neutrophils # Man 16.4 H Lymphocytes # (Manual) 1.1 L Monocytes # (Manual) Eosinophils # (Manual) Basophils # (Manual) PT INR Fibrinogen dRVVT Confirm Interp Factor V Activity POC ABG pH POC ABG pCO2 34.3 L POC ABG pO2 71 L ABG pO2 ABG HCO3 ABG Base Excess ABG Hemoglobin Oxyhemoglobin Sodium Potassium Chloride Carbon Dioxide BUN Creatinine Glucose POC Glucose 216 H Lactic Acid Calcium Phosphorus Magnesium Direct Bilirubin AST ALT Alkaline Phosphatase Lactate Dehydrogenase Troponin T C-Reactive Protein Total Protein Albumin Prealbumin Triglycerides Cholesterol LDL Cholesterol Direct HDL Cholesterol Urine pH Urine WBC (Auto) Urine Creatinine Urine Total Protein Fluid Total Protein Vancomycin Trough Rheumatoid Factor Complement C4 Miscellaneous Test Crossmatch 09/08/16 09/08/16 09/08/16 06:18 06:51 10:55 WBC RBC Hgb Hct MCV MCH MCHC RDW Plt Count Lymph % (Auto) Wilkin % (Auto) Lymph # [place] # Baso # Seg Neutrophils % Seg Neuts % (Manual) Lymphocytes % (Manual) Monocytes % (Manual) Eosinophils % (Manual) Basophils % (Manual) Nucleated RBC % Seg Neutrophils # Seg Neutrophils # Man Lymphocytes # (Manual) Monocytes # (Manual) Eosinophils # (Manual) Basophils # (Manual) PT INR Fibrinogen dRVVT Confirm Interp Factor V Activity POC ABG pH POC ABG pCO2 POC ABG pO2 ABG pO2 ABG HCO3 ABG Base Excess ABG Hemoglobin Oxyhemoglobin Sodium 133 L Potassium Chloride 96.9 L Carbon Dioxide 20 L BUN 63 H Creatinine 2.7 H Glucose 195 H POC Glucose 204 H 169 H Lactic Acid Calcium Phosphorus Magnesium Direct Bilirubin AST ALT Alkaline Phosphatase Lactate Dehydrogenase Troponin T C-Reactive Protein Total Protein Albumin Prealbumin Triglycerides Cholesterol LDL Cholesterol Direct HDL Cholesterol Urine pH Urine WBC (Auto) Urine Creatinine Urine Total Protein Fluid Total Protein Vancomycin Trough Rheumatoid Factor Complement C4 Miscellaneous Test Crossmatch 09/08/16 09/08/16 09/08/16 11:48 11:48 11:48 WBC RBC Hgb Hct MCV MCH MCHC RDW Plt Count Lymph % (Auto) [place] % (Auto) Lymph # [place] # Baso # Seg Neutrophils % Seg Neuts % (Manual) Lymphocytes % (Manual) Monocytes % (Manual) Eosinophils % (Manual) Basophils % (Manual) Nucleated RBC % Seg Neutrophils # Seg Neutrophils # Man Lymphocytes # (Manual) Monocytes # (Manual) Eosinophils # (Manual) Basophils # (Manual) PT INR Fibrinogen 750 H dRVVT Confirm Interp Factor V Activity POC ABG pH POC ABG pCO2 POC ABG pO2 ABG pO2 ABG HCO3 ABG Base Excess ABG Hemoglobin Oxyhemoglobin Sodium Potassium Chloride Carbon Dioxide BUN Creatinine Glucose POC Glucose Lactic Acid Calcium Phosphorus Magnesium Direct Bilirubin AST ALT Alkaline Phosphatase Lactate Dehydrogenase Troponin T C-Reactive Protein 15.70 H Total Protein Albumin Prealbumin Triglycerides Cholesterol LDL Cholesterol Direct HDL Cholesterol Urine pH Urine WBC (Auto) Urine Creatinine Urine Total Protein Fluid Total Protein Vancomycin Trough Rheumatoid Factor 24 H Complement C4 Miscellaneous Test Crossmatch 09/08/16 09/08/16 09/09/16 15:35 18:25 00:24 WBC RBC Hgb Hct MCV MCH MCHC RDW Plt Count Lymph % (Auto) [place] % (Auto) Lymph # [place] # Baso # Seg Neutrophils % Seg Neuts % (Manual) Lymphocytes % (Manual) Monocytes % (Manual) Eosinophils % (Manual) Basophils % (Manual) Nucleated RBC % Seg Neutrophils # Seg Neutrophils # Man Lymphocytes # (Manual) Monocytes # (Manual) Eosinophils # (Manual) Basophils # (Manual) PT INR Fibrinogen dRVVT Confirm Interp Factor V Activity 182 H POC ABG pH POC ABG pCO2 POC ABG pO2 ABG pO2 ABG HCO3 ABG Base Excess ABG Hemoglobin Oxyhemoglobin Sodium Potassium Chloride Carbon Dioxide BUN Creatinine Glucose POC Glucose 184 H 216 H Lactic Acid Calcium Phosphorus Magnesium Direct Bilirubin AST ALT Alkaline Phosphatase Lactate Dehydrogenase Troponin T C-Reactive Protein Total Protein Albumin Prealbumin Triglycerides Cholesterol LDL Cholesterol Direct HDL Cholesterol Urine pH Urine WBC (Auto) Urine Creatinine Urine Total Protein Fluid Total Protein Vancomycin Trough Rheumatoid Factor Complement C4 Miscellaneous Test Crossmatch 09/09/16 09/09/16 09/09/16 03:00 03:00 04:04 WBC 27.9 H RBC Hgb 8.7 L Hct 28.1 L MCV 72 L MCH 22 L MCHC RDW 18.4 H Plt Count 485 H Lymph % (Auto) [place] % (Auto) Lymph # [place] # Baso # Seg Neutrophils % Seg Neuts % (Manual) 77.0 H Lymphocytes % (Manual) 9.0 L Monocytes % (Manual) Eosinophils % (Manual) Basophils % (Manual) Nucleated RBC % Seg Neutrophils # Seg Neutrophils # Man 21.5 H Lymphocytes # (Manual) Monocytes # (Manual) 2.0 H Eosinophils # (Manual) Basophils # (Manual) PT INR Fibrinogen dRVVT Confirm Interp Factor V Activity POC ABG pH POC ABG pCO2 POC ABG pO2 121 H ABG pO2 ABG HCO3 ABG Base Excess ABG Hemoglobin Oxyhemoglobin Sodium 135 L Potassium Chloride 96.3 L Carbon Dioxide 21 L BUN 83 H Creatinine 3.0 H Glucose 135 H POC Glucose Lactic Acid Calcium Phosphorus Magnesium Direct Bilirubin AST ALT Alkaline Phosphatase Lactate Dehydrogenase Troponin T C-Reactive Protein Total Protein Albumin Prealbumin Triglycerides Cholesterol LDL Cholesterol Direct HDL Cholesterol Urine pH Urine WBC (Auto) Urine Creatinine Urine Total Protein Fluid Total Protein Vancomycin Trough Rheumatoid Factor Complement C4 Miscellaneous Test Crossmatch 09/09/16 09/09/16 09/09/16 05:41 11:55 14:13 WBC RBC Hgb Hct MCV MCH MCHC RDW Plt Count Lymph % (Auto) [place] % (Auto) Lymph # [place] # Baso # Seg Neutrophils % Seg Neuts % (Manual) Lymphocytes % (Manual) Monocytes % (Manual) Eosinophils % (Manual) Basophils % (Manual) Nucleated RBC % Seg Neutrophils # Seg Neutrophils # Man Lymphocytes # (Manual) Monocytes # (Manual) Eosinophils # (Manual) Basophils # (Manual) PT INR Fibrinogen dRVVT Confirm Interp Factor V Activity POC ABG pH POC ABG pCO2 POC ABG pO2 ABG pO2 ABG HCO3 ABG Base Excess ABG Hemoglobin Oxyhemoglobin Sodium Potassium Chloride Carbon Dioxide BUN Creatinine Glucose POC Glucose 155 H 186 H Lactic Acid Calcium Phosphorus Magnesium Direct Bilirubin AST ALT Alkaline Phosphatase Lactate Dehydrogenase Troponin T C-Reactive Protein Total Protein Albumin Prealbumin Triglycerides Cholesterol LDL Cholesterol Direct HDL Cholesterol Urine pH Urine WBC (Auto) 25.0 H Urine Creatinine Urine Total Protein Fluid Total Protein Vancomycin Trough Rheumatoid Factor Complement C4 Miscellaneous Test Crossmatch 09/09/16 09/09/16 09/10/16 17:33 23:13 05:09 WBC RBC Hgb Hct MCV MCH MCHC RDW Plt Count Lymph % (Auto) [place] % (Auto) Lymph # [place] # Baso # Seg Neutrophils % Seg Neuts % (Manual) Lymphocytes % (Manual) Monocytes % (Manual) Eosinophils % (Manual) Basophils % (Manual) Nucleated RBC % Seg Neutrophils # Seg Neutrophils # Man Lymphocytes # (Manual) Monocytes # (Manual) Eosinophils # (Manual) Basophils # (Manual) PT INR Fibrinogen dRVVT Confirm Interp Factor V Activity POC ABG pH POC ABG pCO2 POC ABG pO2 74 L ABG pO2 ABG HCO3 ABG Base Excess ABG Hemoglobin Oxyhemoglobin Sodium Potassium Chloride Carbon Dioxide BUN Creatinine Glucose POC Glucose 211 H 215 H Lactic Acid Calcium Phosphorus Magnesium Direct Bilirubin AST ALT Alkaline Phosphatase Lactate Dehydrogenase Troponin T C-Reactive Protein Total Protein Albumin Prealbumin Triglycerides Cholesterol LDL Cholesterol Direct HDL Cholesterol Urine pH Urine WBC (Auto) Urine Creatinine Urine Total Protein Fluid Total Protein Vancomycin Trough Rheumatoid Factor Complement C4 Miscellaneous Test Crossmatch 09/10/16 09/10/16 09/10/16 05:17 05:17 11:31 WBC 15.8 H RBC 3.25 L Hgb 7.3 L Hct 22.9 L MCV 71 L MCH 23 L MCHC RDW 18.4 H Plt Count Lymph % (Auto) [place] % (Auto) Lymph # [place] # Baso # Seg Neutrophils % Seg Neuts % (Manual) 91.0 H Lymphocytes % (Manual) 4.0 L Monocytes % (Manual) Eosinophils % (Manual) Basophils % (Manual) Nucleated RBC % Seg Neutrophils # Seg Neutrophils # Man 14.4 H Lymphocytes # (Manual) 0.6 L Monocytes # (Manual) Eosinophils # (Manual) Basophils # (Manual) PT INR Fibrinogen dRVVT Confirm Interp Factor V Activity POC ABG pH POC ABG pCO2 POC ABG pO2 ABG pO2 ABG HCO3 ABG Base Excess ABG Hemoglobin Oxyhemoglobin Sodium Potassium Chloride Carbon Dioxide 21 L BUN 93 H Creatinine 2.9 H Glucose 146 H POC Glucose 188 H Lactic Acid Calcium 8.1 L Phosphorus Magnesium Direct Bilirubin AST ALT Alkaline Phosphatase Lactate Dehydrogenase Troponin T C-Reactive Protein Total Protein Albumin Prealbumin Triglycerides Cholesterol LDL Cholesterol Direct HDL Cholesterol Urine pH Urine WBC (Auto) Urine Creatinine Urine Total Protein Fluid Total Protein Vancomycin Trough Rheumatoid Factor Complement C4 Miscellaneous Test Crossmatch 09/10/16 09/10/16 09/10/16 13:17 17:20 23:32 WBC RBC Hgb Hct MCV MCH MCHC RDW Plt Count Lymph % (Auto) [place] % (Auto) Lymph # [place] # Baso # Seg Neutrophils % Seg Neuts % (Manual) Lymphocytes % (Manual) Monocytes % (Manual) Eosinophils % (Manual) Basophils % (Manual) Nucleated RBC % Seg Neutrophils # Seg Neutrophils # Man Lymphocytes # (Manual) Monocytes # (Manual) Eosinophils # (Manual) Basophils # (Manual) PT INR Fibrinogen dRVVT Confirm Interp Factor V Activity POC ABG pH POC ABG pCO2 POC ABG pO2 ABG pO2 ABG HCO3 ABG Base Excess ABG Hemoglobin Oxyhemoglobin Sodium Potassium Chloride Carbon Dioxide BUN Creatinine Glucose POC Glucose 199 H 186 H Lactic Acid Calcium Phosphorus Magnesium Direct Bilirubin AST ALT Alkaline Phosphatase Lactate Dehydrogenase Troponin T C-Reactive Protein Total Protein Albumin Prealbumin Triglycerides Cholesterol LDL Cholesterol Direct HDL Cholesterol Urine pH Urine WBC (Auto) Urine Creatinine Urine Total Protein Fluid Total Protein Vancomycin Trough Rheumatoid Factor Complement C4 Miscellaneous Test Crossmatch See Detail 09/11/16 09/11/16 09/11/16 05:10 05:10 05:17 WBC 28.4 H RBC Hgb 9.2 L Hct 29.3 L D MCV 73 L MCH 23 L MCHC RDW 18.9 H Plt Count 452 H Lymph % (Auto) [place] % (Auto) Lymph # [place] # Baso # Seg Neutrophils % Seg Neuts % (Manual) 89.5 H Lymphocytes % (Manual) 2.0 L Monocytes % (Manual) Eosinophils % (Manual) Basophils % (Manual) Nucleated RBC % Seg Neutrophils # Seg Neutrophils # Man 25.4 H Lymphocytes # (Manual) 0.6 L Monocytes # (Manual) 1.3 H Eosinophils # (Manual) Basophils # (Manual) PT INR Fibrinogen dRVVT Confirm Interp Factor V Activity POC ABG pH POC ABG pCO2 POC ABG pO2 ABG pO2 ABG HCO3 ABG Base Excess ABG Hemoglobin Oxyhemoglobin Sodium 136 L Potassium Chloride Carbon Dioxide 18 L BUN 107 H Creatinine 2.6 H Glucose 187 H POC Glucose 230 H Lactic Acid Calcium 8.3 L Phosphorus Magnesium Direct Bilirubin AST ALT Alkaline Phosphatase Lactate Dehydrogenase Troponin T C-Reactive Protein Total Protein Albumin Prealbumin Triglycerides Cholesterol LDL Cholesterol Direct HDL Cholesterol Urine pH Urine WBC (Auto) Urine Creatinine Urine Total Protein Fluid Total Protein Vancomycin Trough Rheumatoid Factor Complement C4 Miscellaneous Test Crossmatch 09/11/16 09/11/16 09/11/16 05:55 12:02 17:32 WBC RBC Hgb Hct MCV MCH MCHC RDW Plt Count Lymph % (Auto) [place] % (Auto) Lymph # [place] # Baso # Seg Neutrophils % Seg Neuts % (Manual) Lymphocytes % (Manual) Monocytes % (Manual) Eosinophils % (Manual) Basophils % (Manual) Nucleated RBC % Seg Neutrophils # Seg Neutrophils # Man Lymphocytes # (Manual) Monocytes # (Manual) Eosinophils # (Manual) Basophils # (Manual) PT INR Fibrinogen dRVVT Confirm Interp Factor V Activity POC ABG pH POC ABG pCO2 33.8 L POC ABG pO2 ABG pO2 ABG HCO3 ABG Base Excess ABG Hemoglobin Oxyhemoglobin Sodium Potassium Chloride Carbon Dioxide BUN Creatinine Glucose POC Glucose 191 H 239 H Lactic Acid Calcium Phosphorus Magnesium Direct Bilirubin AST ALT Alkaline Phosphatase Lactate Dehydrogenase Troponin T C-Reactive Protein Total Protein Albumin Prealbumin Triglycerides Cholesterol LDL Cholesterol Direct HDL Cholesterol Urine pH Urine WBC (Auto) Urine Creatinine Urine Total Protein Fluid Total Protein Vancomycin Trough Rheumatoid Factor Complement C4 Miscellaneous Test Crossmatch 09/11/16 09/12/16 09/12/16 23:52 05:09 05:32 WBC RBC Hgb Hct MCV MCH MCHC RDW Plt Count Lymph % (Auto) [place] % (Auto) Lymph # [place] # Baso # Seg Neutrophils % Seg Neuts % (Manual) Lymphocytes % (Manual) Monocytes % (Manual) Eosinophils % (Manual) Basophils % (Manual) Nucleated RBC % Seg Neutrophils # Seg Neutrophils # Man Lymphocytes # (Manual) Monocytes # (Manual) Eosinophils # (Manual) Basophils # (Manual) PT INR Fibrinogen dRVVT Confirm Interp Factor V Activity POC ABG pH POC ABG pCO2 34.6 L POC ABG pO2 ABG pO2 ABG HCO3 ABG Base Excess ABG Hemoglobin Oxyhemoglobin Sodium Potassium Chloride Carbon Dioxide BUN Creatinine Glucose POC Glucose 265 H 184 H Lactic Acid Calcium Phosphorus Magnesium Direct Bilirubin AST ALT Alkaline Phosphatase Lactate Dehydrogenase Troponin T C-Reactive Protein Total Protein Albumin Prealbumin Triglycerides Cholesterol LDL Cholesterol Direct HDL Cholesterol Urine pH Urine WBC (Auto) Urine Creatinine Urine Total Protein Fluid Total Protein Vancomycin Trough Rheumatoid Factor Complement C4 Miscellaneous Test Crossmatch 0709/12/16 09/12/16 06:45 06:45 07:22 WBC 31.7 H RBC 3.54 L Hgb 8.3 L Hct 25.9 L MCV 73 L MCH 23 L MCHC RDW 18.9 H Plt Count Lymph % (Auto) [place] % (Auto) Lymph # [place] # Baso # Seg Neutrophils % Seg Neuts % (Manual) 88.5 H Lymphocytes % (Manual) 4.5 L Monocytes % (Manual) Eosinophils % (Manual) Basophils % (Manual) Nucleated RBC % Seg Neutrophils # Seg Neutrophils # Man 28.1 H Lymphocytes # (Manual) Monocytes # (Manual) 1.0 H Eosinophils # (Manual) Basophils # (Manual) PT INR Fibrinogen dRVVT Confirm Interp Factor V Activity POC ABG pH POC ABG pCO2 POC ABG pO2 ABG pO2 ABG HCO3 ABG Base Excess ABG Hemoglobin Oxyhemoglobin Sodium Potassium Chloride Carbon Dioxide 20 L BUN 115 H Creatinine 2.7 H Glucose 165 H POC Glucose Lactic Acid Calcium 8.0 L Phosphorus Magnesium Direct Bilirubin AST ALT Alkaline Phosphatase Lactate Dehydrogenase Troponin T C-Reactive Protein Total Protein Albumin Prealbumin Triglycerides 217 H Cholesterol LDL Cholesterol Direct HDL Cholesterol Urine pH Urine WBC (Auto) Urine Creatinine Urine Total Protein Fluid Total Protein Vancomycin Trough Rheumatoid Factor Complement C4 Miscellaneous Test Crossmatch 09/12/16 09/12/16 09/12/16 07:22 09:59 12:21 WBC RBC Hgb Hct MCV MCH MCHC RDW Plt Count Lymph % (Auto) [place] % (Auto) Lymph # [place] # Baso # Seg Neutrophils % Seg Neuts % (Manual) Lymphocytes % (Manual) Monocytes % (Manual) Eosinophils % (Manual) Basophils % (Manual) Nucleated RBC % Seg Neutrophils # Seg Neutrophils # Man Lymphocytes # (Manual) Monocytes # (Manual) Eosinophils # (Manual) Basophils # (Manual) PT INR Fibrinogen dRVVT Confirm Interp Positive H Factor V Activity POC ABG pH POC ABG pCO2 POC ABG pO2 ABG pO2 ABG HCO3 ABG Base Excess ABG Hemoglobin Oxyhemoglobin Sodium Potassium Chloride Carbon Dioxide BUN Creatinine Glucose POC Glucose 224 H Lactic Acid Calcium Phosphorus Magnesium Direct Bilirubin AST ALT Alkaline Phosphatase Lactate Dehydrogenase Troponin T C-Reactive Protein 1.70 H Total Protein Albumin Prealbumin Triglycerides Cholesterol LDL Cholesterol Direct HDL Cholesterol Urine pH Urine WBC (Auto) Urine Creatinine Urine Total Protein Fluid Total Protein Vancomycin Trough Rheumatoid Factor Complement C4 Miscellaneous Test Crossmatch 07/24/17 07/24/17 07/25/17 16:51 23:28 04:00 WBC 45.0 H* RBC Hgb 9.4 L Hct MCV 75 L MCH 23 L MCHC RDW 19.0 H Plt Count 470 H Lymph % (Auto) [place] % (Auto) Lymph # [place] # Baso # Seg Neutrophils % Seg Neuts % (Manual) 89.0 H Lymphocytes % (Manual) 5.0 L Monocytes % (Manual) Eosinophils % (Manual) Basophils % (Manual) Nucleated RBC % Seg Neutrophils # Seg Neutrophils # Man 40.1 H Lymphocytes # (Manual) Monocytes # (Manual) Eosinophils # (Manual) Basophils # (Manual) PT INR Fibrinogen dRVVT Confirm Interp Factor V Activity POC ABG pH POC ABG pCO2 POC ABG pO2 ABG pO2 ABG HCO3 ABG Base Excess ABG Hemoglobin Oxyhemoglobin Sodium Potassium Chloride Carbon Dioxide BUN Creatinine Glucose POC Glucose 169 H 150 H Lactic Acid Calcium Phosphorus Magnesium Direct Bilirubin AST ALT Alkaline Phosphatase Lactate Dehydrogenase Troponin T C-Reactive Protein Total Protein Albumin Prealbumin Triglycerides Cholesterol LDL Cholesterol Direct HDL Cholesterol Urine pH Urine WBC (Auto) Urine Creatinine Urine Total Protein Fluid Total Protein Vancomycin Trough Rheumatoid Factor Complement C4 Miscellaneous Test Crossmatch 09/13/16 09/13/16 09/13/16 04:00 11:26 17:31 WBC RBC Hgb Hct MCV MCH MCHC RDW Plt Count Lymph % (Auto) [place] % (Auto) Lymph # [place] # Baso # Seg Neutrophils % Seg Neuts % (Manual) Lymphocytes % (Manual) Monocytes % (Manual) Eosinophils % (Manual) Basophils % (Manual) Nucleated RBC % Seg Neutrophils # Seg Neutrophils # Man Lymphocytes # (Manual) Monocytes # (Manual) Eosinophils # (Manual) Basophils # (Manual) PT INR Fibrinogen dRVVT Confirm Interp Factor V Activity POC ABG pH POC ABG pCO2 POC ABG pO2 ABG pO2 ABG HCO3 ABG Base Excess ABG Hemoglobin Oxyhemoglobin Sodium Potassium Chloride Carbon Dioxide 20 L BUN 116 H Creatinine 3.0 H Glucose 172 H POC Glucose 140 H 183 H Lactic Acid Calcium Phosphorus Magnesium Direct Bilirubin AST ALT Alkaline Phosphatase Lactate Dehydrogenase Troponin T C-Reactive Protein Total Protein 6.2 L Albumin 2.9 L Prealbumin Triglycerides Cholesterol LDL Cholesterol Direct HDL Cholesterol Urine pH Urine WBC (Auto) Urine Creatinine Urine Total Protein Fluid Total Protein Vancomycin Trough Rheumatoid Factor Complement C4 Miscellaneous Test Crossmatch 09/13/16 09/14/16 09/14/16 23:23 04:06 04:07 WBC 29.4 H RBC Hgb 8.9 L Hct 27.3 L MCV 75 L MCH 24 L MCHC RDW 19.1 H Plt Count Lymph % (Auto) [place] % (Auto) Lymph # [place] # Baso # Seg Neutrophils % Seg Neuts % (Manual) 84.0 H Lymphocytes % (Manual) 6.0 L Monocytes % (Manual) 9.0 H Eosinophils % (Manual) Basophils % (Manual) Nucleated RBC % Seg Neutrophils # Seg Neutrophils # Man 24.7 H Lymphocytes # (Manual) Monocytes # (Manual) 2.6 H Eosinophils # (Manual) Basophils # (Manual) PT INR Fibrinogen dRVVT Confirm Interp Factor V Activity POC ABG pH 7.342 L POC ABG pCO2 POC ABG pO2 116 H ABG pO2 ABG HCO3 ABG Base Excess ABG Hemoglobin Oxyhemoglobin Sodium Potassium Chloride Carbon Dioxide BUN Creatinine Glucose POC Glucose 154 H Lactic Acid Calcium Phosphorus Magnesium Direct Bilirubin AST ALT Alkaline Phosphatase Lactate Dehydrogenase Troponin T C-Reactive Protein Total Protein Albumin Prealbumin Triglycerides Cholesterol LDL Cholesterol Direct HDL Cholesterol Urine pH Urine WBC (Auto) Urine Creatinine Urine Total Protein Fluid Total Protein Vancomycin Trough Rheumatoid Factor Complement C4 Miscellaneous Test Crossmatch 09/14/16 09/14/16 09/14/16 04:07 05:29 12:19 WBC RBC Hgb Hct MCV MCH MCHC RDW Plt Count Lymph % (Auto) [place] % (Auto) Lymph # [place] # Baso # Seg Neutrophils % Seg Neuts % (Manual) Lymphocytes % (Manual) Monocytes % (Manual) Eosinophils % (Manual) Basophils % (Manual) Nucleated RBC % Seg Neutrophils # Seg Neutrophils # Man Lymphocytes # (Manual) Monocytes # (Manual) Eosinophils # (Manual) Basophils # (Manual) PT INR Fibrinogen dRVVT Confirm Interp Factor V Activity POC ABG pH POC ABG pCO2 POC ABG pO2 ABG pO2 ABG HCO3 ABG Base Excess ABG Hemoglobin Oxyhemoglobin Sodium 136 L Potassium Chloride Carbon Dioxide 18 L BUN 121 H Creatinine 2.8 H Glucose 214 H POC Glucose 239 H 181 H Lactic Acid Calcium Phosphorus Magnesium Direct Bilirubin AST ALT Alkaline Phosphatase Lactate Dehydrogenase Troponin T C-Reactive Protein Total Protein Albumin Prealbumin Triglycerides Cholesterol LDL Cholesterol Direct HDL Cholesterol Urine pH Urine WBC (Auto) Urine Creatinine Urine Total Protein Fluid Total Protein Vancomycin Trough Rheumatoid Factor Complement C4 Miscellaneous Test Crossmatch 09/14/16 09/14/16 09/15/16 18:12 23:37 05:00 WBC 26.1 H RBC 3.05 L Hgb 7.2 L Hct 22.9 L MCV 75 L MCH 24 L MCHC RDW 19.0 H Plt Count Lymph % (Auto) [place] % (Auto) Lymph # [place] # Baso # Seg Neutrophils % Seg Neuts % (Manual) Lymphocytes % (Manual) Monocytes % (Manual) Eosinophils % (Manual) Basophils % (Manual) Nucleated RBC % Seg Neutrophils # Seg Neutrophils # Man Lymphocytes # (Manual) Monocytes # (Manual) Eosinophils # (Manual) Basophils # (Manual) PT INR Fibrinogen dRVVT Confirm Interp Factor V Activity POC ABG pH POC ABG pCO2 POC ABG pO2 ABG pO2 ABG HCO3 ABG Base Excess ABG Hemoglobin Oxyhemoglobin Sodium Potassium Chloride Carbon Dioxide BUN Creatinine Glucose POC Glucose 266 H 154 H Lactic Acid Calcium Phosphorus Magnesium Direct Bilirubin AST ALT Alkaline Phosphatase Lactate Dehydrogenase Troponin T C-Reactive Protein Total Protein Albumin Prealbumin Triglycerides Cholesterol LDL Cholesterol Direct HDL Cholesterol Urine pH Urine WBC (Auto) Urine Creatinine Urine Total Protein Fluid Total Protein Vancomycin Trough Rheumatoid Factor Complement C4 Miscellaneous Test Crossmatch 09/15/16 09/15/16 09/15/16 05:00 05:17 12:45 WBC RBC Hgb Hct MCV MCH MCHC RDW Plt Count Lymph % (Auto) [place] % (Auto) Lymph # [place] # Baso # Seg Neutrophils % Seg Neuts % (Manual) Lymphocytes % (Manual) Monocytes % (Manual) Eosinophils % (Manual) Basophils % (Manual) Nucleated RBC % Seg Neutrophils # Seg Neutrophils # Man Lymphocytes # (Manual) Monocytes # (Manual) Eosinophils # (Manual) Basophils # (Manual) PT INR Fibrinogen dRVVT Confirm Interp Factor V Activity POC ABG pH POC ABG pCO2 POC ABG pO2 ABG pO2 ABG HCO3 ABG Base Excess ABG Hemoglobin Oxyhemoglobin Sodium Potassium 5.2 H Chloride Carbon Dioxide 18 L BUN 139 H Creatinine 3.7 H Glucose 227 H POC Glucose 226 H 244 H Lactic Acid Calcium 8.3 L Phosphorus Magnesium Direct Bilirubin AST ALT Alkaline Phosphatase Lactate Dehydrogenase Troponin T C-Reactive Protein Total Protein Albumin Prealbumin Triglycerides Cholesterol LDL Cholesterol Direct HDL Cholesterol Urine pH Urine WBC (Auto) Urine Creatinine Urine Total Protein Fluid Total Protein Vancomycin Trough Rheumatoid Factor Complement C4 Miscellaneous Test Crossmatch 09/15/16 09/15/16 09/15/16 14:32 17:33 23:35 WBC RBC Hgb Hct MCV MCH MCHC RDW Plt Count Lymph % (Auto) [place] % (Auto) Lymph # [place] # Baso # Seg Neutrophils % Seg Neuts % (Manual) Lymphocytes % (Manual) Monocytes % (Manual) Eosinophils % (Manual) Basophils % (Manual) Nucleated RBC % Seg Neutrophils # Seg Neutrophils # Man Lymphocytes # (Manual) Monocytes # (Manual) Eosinophils # (Manual) Basophils # (Manual) PT INR Fibrinogen dRVVT Confirm Interp Factor V Activity POC ABG pH POC ABG pCO2 27.7 L POC ABG pO2 120 H ABG pO2 ABG HCO3 ABG Base Excess ABG Hemoglobin Oxyhemoglobin Sodium Potassium Chloride Carbon Dioxide BUN Creatinine Glucose POC Glucose 232 H 167 H Lactic Acid Calcium Phosphorus Magnesium Direct Bilirubin AST ALT Alkaline Phosphatase Lactate Dehydrogenase Troponin T C-Reactive Protein Total Protein Albumin Prealbumin Triglycerides Cholesterol LDL Cholesterol Direct HDL Cholesterol Urine pH Urine WBC (Auto) Urine Creatinine Urine Total Protein Fluid Total Protein Vancomycin Trough Rheumatoid Factor Complement C4 Miscellaneous Test Crossmatch 09/16/16 09/16/16 09/16/16 03:58 10:27 10:27 WBC 19.0 H RBC 2.77 L Hgb 6.5 L Hct 20.9 L MCV 76 L MCH 23 L MCHC RDW 19.3 H Plt Count Lymph % (Auto) 11.0 L [place] % (Auto) Lymph # [place] # 1.1 H Baso # Seg Neutrophils % 82.5 H Seg Neuts % (Manual) Lymphocytes % (Manual) Monocytes % (Manual) Eosinophils % (Manual) Basophils % (Manual) Nucleated RBC % Seg Neutrophils # 15.7 H Seg Neutrophils # Man Lymphocytes # (Manual) Monocytes # (Manual) Eosinophils # (Manual) Basophils # (Manual) PT INR Fibrinogen dRVVT Confirm Interp Factor V Activity POC ABG pH POC ABG pCO2 POC ABG pO2 ABG pO2 ABG HCO3 ABG Base Excess ABG Hemoglobin Oxyhemoglobin Sodium Potassium Chloride 109.3 H Carbon Dioxide 18 L BUN 139 H Creatinine 4.1 H Glucose 144 H POC Glucose 146 H Lactic Acid Calcium 8.1 L Phosphorus Magnesium Direct Bilirubin AST ALT Alkaline Phosphatase Lactate Dehydrogenase Troponin T C-Reactive Protein Total Protein Albumin Prealbumin Triglycerides Cholesterol LDL Cholesterol Direct HDL Cholesterol Urine pH Urine WBC (Auto) Urine Creatinine Urine Total Protein Fluid Total Protein Vancomycin Trough Rheumatoid Factor Complement C4 Miscellaneous Test Crossmatch 09/16/16 09/16/16 09/16/16 12:04 12:10 13:55 WBC RBC Hgb Hct MCV MCH MCHC RDW Plt Count Lymph % (Auto) [place] % (Auto) Lymph # [place] # Baso # Seg Neutrophils % Seg Neuts % (Manual) Lymphocytes % (Manual) Monocytes % (Manual) Eosinophils % (Manual) Basophils % (Manual) Nucleated RBC % Seg Neutrophils # Seg Neutrophils # Man Lymphocytes # (Manual) Monocytes # (Manual) Eosinophils # (Manual) Basophils # (Manual) PT INR Fibrinogen dRVVT Confirm Interp Factor V Activity POC ABG pH POC ABG pCO2 32.9 L POC ABG pO2 ABG pO2 ABG HCO3 ABG Base Excess ABG Hemoglobin Oxyhemoglobin Sodium Potassium Chloride Carbon Dioxide BUN Creatinine Glucose POC Glucose 185 H Lactic Acid Calcium Phosphorus Magnesium Direct Bilirubin AST ALT Alkaline Phosphatase Lactate Dehydrogenase Troponin T C-Reactive Protein Total Protein Albumin Prealbumin Triglycerides Cholesterol LDL Cholesterol Direct HDL Cholesterol Urine pH Urine WBC (Auto) Urine Creatinine Urine Total Protein Fluid Total Protein Vancomycin Trough Rheumatoid Factor Complement C4 Miscellaneous Test Crossmatch See Detail 09/16/16 09/16/16 09/16/16 17:55 19:19 23:48 WBC RBC Hgb Hct MCV MCH MCHC RDW Plt Count Lymph % (Auto) Wilkin % (Auto) Lymph # [place] # Baso # Seg Neutrophils % Seg Neuts % (Manual) Lymphocytes % (Manual) Monocytes % (Manual) Eosinophils % (Manual) Basophils % (Manual) Nucleated RBC % Seg Neutrophils # Seg Neutrophils # Man Lymphocytes # (Manual) Monocytes # (Manual) Eosinophils # (Manual) Basophils # (Manual) PT INR Fibrinogen dRVVT Confirm Interp Factor V Activity POC ABG pH POC ABG pCO2 POC ABG pO2 ABG pO2 ABG HCO3 ABG Base Excess ABG Hemoglobin Oxyhemoglobin Sodium Potassium Chloride Carbon Dioxide BUN Creatinine Glucose POC Glucose 222 H 107 H Lactic Acid Calcium Phosphorus Magnesium Direct Bilirubin AST ALT Alkaline Phosphatase Lactate Dehydrogenase Troponin T C-Reactive Protein Total Protein Albumin Prealbumin Triglycerides Cholesterol LDL Cholesterol Direct HDL Cholesterol Urine pH Urine WBC (Auto) Urine Creatinine 47.4 H Urine Total Protein 16 H Fluid Total Protein Vancomycin Trough Rheumatoid Factor Complement C4 Miscellaneous Test Crossmatch 07/09/17/16 09/17/16 03:45 03:45 04:55 WBC 19.6 H RBC 3.41 L Hgb 8.5 L Hct 26.7 L MCV 78 L MCH 25 L MCHC RDW 19.9 H Plt Count Lymph % (Auto) 9.3 L [place] % (Auto) Lymph # Wilkin # 1.2 H Baso # Seg Neutrophils % 83.9 H Seg Neuts % (Manual) Lymphocytes % (Manual) Monocytes % (Manual) Eosinophils % (Manual) Basophils % (Manual) Nucleated RBC % Seg Neutrophils # 16.4 H Seg Neutrophils # Man Lymphocytes # (Manual) Monocytes # (Manual) Eosinophils # (Manual) Basophils # (Manual) PT INR Fibrinogen dRVVT Confirm Interp Factor V Activity POC ABG pH POC ABG pCO2 POC ABG pO2 ABG pO2 ABG HCO3 ABG Base Excess ABG Hemoglobin Oxyhemoglobin Sodium 146 H Potassium 5.1 H Chloride 110.9 H Carbon Dioxide 16 L BUN 146 H Creatinine 4.0 H Glucose 108 H POC Glucose 133 H Lactic Acid Calcium Phosphorus Magnesium 3.00 H Direct Bilirubin AST ALT Alkaline Phosphatase Lactate Dehydrogenase Troponin T C-Reactive Protein Total Protein Albumin Prealbumin Triglycerides Cholesterol LDL Cholesterol Direct HDL Cholesterol Urine pH Urine WBC (Auto) Urine Creatinine Urine Total Protein Fluid Total Protein Vancomycin Trough Rheumatoid Factor Complement C4 Miscellaneous Test Crossmatch 09/17/16 09/17/16 09/17/16 11:15 17:33 23:47 WBC RBC Hgb Hct MCV MCH MCHC RDW Plt Count Lymph % (Auto) [place] % (Auto) Lymph # [place] # Baso # Seg Neutrophils % Seg Neuts % (Manual) Lymphocytes % (Manual) Monocytes % (Manual) Eosinophils % (Manual) Basophils % (Manual) Nucleated RBC % Seg Neutrophils # Seg Neutrophils # Man Lymphocytes # (Manual) Monocytes # (Manual) Eosinophils # (Manual) Basophils # (Manual) PT INR Fibrinogen dRVVT Confirm Interp Factor V Activity POC ABG pH POC ABG pCO2 POC ABG pO2 ABG pO2 ABG HCO3 ABG Base Excess ABG Hemoglobin Oxyhemoglobin Sodium Potassium Chloride Carbon Dioxide BUN Creatinine Glucose POC Glucose 176 H 246 H 148 H Lactic Acid Calcium Phosphorus Magnesium Direct Bilirubin AST ALT Alkaline Phosphatase Lactate Dehydrogenase Troponin T C-Reactive Protein Total Protein Albumin Prealbumin Triglycerides Cholesterol LDL Cholesterol Direct HDL Cholesterol Urine pH Urine WBC (Auto) Urine Creatinine Urine Total Protein Fluid Total Protein Vancomycin Trough Rheumatoid Factor Complement C4 Miscellaneous Test Crossmatch 09/18/16 09/18/16 09/18/16 05:33 08:31 08:31 WBC 18.0 H RBC 3.17 L Hgb 9.0 L Hct 25.7 L MCV MCH MCHC 35 H RDW 20.4 H Plt Count Lymph % (Auto) [place] % (Auto) Lymph # [place] # Baso # Seg Neutrophils % Seg Neuts % (Manual) Lymphocytes % (Manual) Monocytes % (Manual) Eosinophils % (Manual) Basophils % (Manual) Nucleated RBC % Seg Neutrophils # Seg Neutrophils # Man Lymphocytes # (Manual) Monocytes # (Manual) Eosinophils # (Manual) Basophils # (Manual) PT INR Fibrinogen dRVVT Confirm Interp Factor V Activity POC ABG pH POC ABG pCO2 POC ABG pO2 ABG pO2 ABG HCO3 ABG Base Excess ABG Hemoglobin Oxyhemoglobin Sodium Potassium Chloride Carbon Dioxide 15 L BUN 124 H Creatinine 3.8 H Glucose POC Glucose 120 H Lactic Acid Calcium 8.1 L Phosphorus Magnesium Direct Bilirubin AST ALT Alkaline Phosphatase Lactate Dehydrogenase Troponin T C-Reactive Protein Total Protein Albumin Prealbumin Triglycerides Cholesterol LDL Cholesterol Direct HDL Cholesterol Urine pH Urine WBC (Auto) Urine Creatinine Urine Total Protein Fluid Total Protein Vancomycin Trough Rheumatoid Factor Complement C4 Miscellaneous Test Crossmatch 09/18/16 09/18/16 09/18/16 12:03 15:34 17:50 WBC RBC Hgb Hct MCV MCH MCHC RDW Plt Count Lymph % (Auto) [place] % (Auto) Lymph # [place] # Baso # Seg Neutrophils % Seg Neuts % (Manual) Lymphocytes % (Manual) Monocytes % (Manual) Eosinophils % (Manual) Basophils % (Manual) Nucleated RBC % Seg Neutrophils # Seg Neutrophils # Man Lymphocytes # (Manual) Monocytes # (Manual) Eosinophils # (Manual) Basophils # (Manual) PT INR Fibrinogen dRVVT Confirm Interp Factor V Activity POC ABG pH POC ABG pCO2 25.7 L POC ABG pO2 66 L ABG pO2 ABG HCO3 ABG Base Excess ABG Hemoglobin Oxyhemoglobin Sodium Potassium Chloride Carbon Dioxide BUN Creatinine Glucose POC Glucose 156 H 220 H Lactic Acid Calcium Phosphorus Magnesium Direct Bilirubin AST ALT Alkaline Phosphatase Lactate Dehydrogenase Troponin T C-Reactive Protein Total Protein Albumin Prealbumin Triglycerides Cholesterol LDL Cholesterol Direct HDL Cholesterol Urine pH Urine WBC (Auto) Urine Creatinine Urine Total Protein Fluid Total Protein Vancomycin Trough Rheumatoid Factor Complement C4 Miscellaneous Test Crossmatch 09/19/16 09/19/16 09/19/16 06:21 09:50 09:50 WBC 17.1 H RBC 3.49 L Hgb 9.0 L Hct 28.1 L MCV MCH 26 L MCHC RDW 20.8 H Plt Count Lymph % (Auto) 11.5 L [place] % (Auto) 7.5 H Lymph # [place] # 1.3 H Baso # Seg Neutrophils % 79.8 H Seg Neuts % (Manual) Lymphocytes % (Manual) Monocytes % (Manual) Eosinophils % (Manual) Basophils % (Manual) Nucleated RBC % Seg Neutrophils # 13.7 H Seg Neutrophils # Man Lymphocytes # (Manual) Monocytes # (Manual) Eosinophils # (Manual) Basophils # (Manual) PT INR Fibrinogen dRVVT Confirm Interp Factor V Activity POC ABG pH POC ABG pCO2 POC ABG pO2 ABG pO2 ABG HCO3 ABG Base Excess ABG Hemoglobin Oxyhemoglobin Sodium Potassium Chloride 108.6 H Carbon Dioxide 15 L BUN 125 H Creatinine 4.1 H Glucose 124 H POC Glucose 119 H Lactic Acid Calcium Phosphorus Magnesium Direct Bilirubin AST ALT Alkaline Phosphatase Lactate Dehydrogenase Troponin T C-Reactive Protein Total Protein Albumin Prealbumin Triglycerides Cholesterol LDL Cholesterol Direct HDL Cholesterol Urine pH Urine WBC (Auto) Urine Creatinine Urine Total Protein Fluid Total Protein Vancomycin Trough Rheumatoid Factor Complement C4 Miscellaneous Test Crossmatch 09/19/16 09/19/16 09/19/16 11:25 17:53 23:36 WBC RBC Hgb Hct MCV MCH MCHC RDW Plt Count Lymph % (Auto) [place] % (Auto) Lymph # [place] # Baso # Seg Neutrophils % Seg Neuts % (Manual) Lymphocytes % (Manual) Monocytes % (Manual) Eosinophils % (Manual) Basophils % (Manual) Nucleated RBC % Seg Neutrophils # Seg Neutrophils # Man Lymphocytes # (Manual) Monocytes # (Manual) Eosinophils # (Manual) Basophils # (Manual) PT INR Fibrinogen dRVVT Confirm Interp Factor V Activity POC ABG pH POC ABG pCO2 POC ABG pO2 ABG pO2 ABG HCO3 ABG Base Excess ABG Hemoglobin Oxyhemoglobin Sodium Potassium Chloride Carbon Dioxide BUN Creatinine Glucose POC Glucose 160 H 245 H 121 H Lactic Acid Calcium Phosphorus Magnesium Direct Bilirubin AST ALT Alkaline Phosphatase Lactate Dehydrogenase Troponin T C-Reactive Protein Total Protein Albumin Prealbumin Triglycerides Cholesterol LDL Cholesterol Direct HDL Cholesterol Urine pH Urine WBC (Auto) Urine Creatinine Urine Total Protein Fluid Total Protein Vancomycin Trough Rheumatoid Factor Complement C4 Miscellaneous Test Crossmatch 09/20/16 09/20/16 09/20/16 04:10 04:10 04:10 WBC 17.0 H RBC 3.21 L Hgb 8.2 L Hct 25.5 L MCV MCH 26 L MCHC RDW 20.9 H Plt Count Lymph % (Auto) [place] % (Auto) Lymph # [place] # Baso # Seg Neutrophils % Seg Neuts % (Manual) Lymphocytes % (Manual) Monocytes % (Manual) Eosinophils % (Manual) Basophils % (Manual) Nucleated RBC % Seg Neutrophils # Seg Neutrophils # Man Lymphocytes # (Manual) Monocytes # (Manual) Eosinophils # (Manual) Basophils # (Manual) PT INR Fibrinogen dRVVT Confirm Interp Factor V Activity POC ABG pH POC ABG pCO2 POC ABG pO2 ABG pO2 ABG HCO3 ABG Base Excess ABG Hemoglobin Oxyhemoglobin Sodium Potassium Chloride 111.0 H Carbon Dioxide 16 L BUN 129 H Creatinine 3.7 H Glucose 115 H POC Glucose Lactic Acid Calcium 8.2 L Phosphorus Magnesium Direct Bilirubin AST ALT Alkaline Phosphatase Lactate Dehydrogenase Troponin T C-Reactive Protein Total Protein Albumin Prealbumin Triglycerides 243 H Cholesterol LDL Cholesterol Direct HDL Cholesterol Urine pH Urine WBC (Auto) Urine Creatinine Urine Total Protein Fluid Total Protein Vancomycin Trough Rheumatoid Factor Complement C4 Miscellaneous Test Crossmatch 09/20/16 09/20/16 09/20/16 05:40 11:52 16:50 WBC RBC Hgb Hct MCV MCH MCHC RDW Plt Count Lymph % (Auto) [place] % (Auto) Lymph # [place] # Baso # Seg Neutrophils % Seg Neuts % (Manual) Lymphocytes % (Manual) Monocytes % (Manual) Eosinophils % (Manual) Basophils % (Manual) Nucleated RBC % Seg Neutrophils # Seg Neutrophils # Man Lymphocytes # (Manual) Monocytes # (Manual) Eosinophils # (Manual) Basophils # (Manual) PT INR Fibrinogen dRVVT Confirm Interp Factor V Activity POC ABG pH POC ABG pCO2 POC ABG pO2 ABG pO2 ABG HCO3 ABG Base Excess ABG Hemoglobin Oxyhemoglobin Sodium Potassium Chloride Carbon Dioxide BUN Creatinine Glucose POC Glucose 131 H 183 H 236 H Lactic Acid Calcium Phosphorus Magnesium Direct Bilirubin AST ALT Alkaline Phosphatase Lactate Dehydrogenase Troponin T C-Reactive Protein Total Protein Albumin Prealbumin Triglycerides Cholesterol LDL Cholesterol Direct HDL Cholesterol Urine pH Urine WBC (Auto) Urine Creatinine Urine Total Protein Fluid Total Protein Vancomycin Trough Rheumatoid Factor Complement C4 Miscellaneous Test Crossmatch 09/20/16 09/21/16 09/21/16 23:51 03:30 04:44 WBC RBC Hgb Hct MCV MCH MCHC RDW Plt Count Lymph % (Auto) [place] % (Auto) Lymph # [place] # Baso # Seg Neutrophils % Seg Neuts % (Manual) Lymphocytes % (Manual) Monocytes % (Manual) Eosinophils % (Manual) Basophils % (Manual) Nucleated RBC % Seg Neutrophils # Seg Neutrophils # Man Lymphocytes # (Manual) Monocytes # (Manual) Eosinophils # (Manual) Basophils # (Manual) PT INR Fibrinogen dRVVT Confirm Interp Factor V Activity POC ABG pH POC ABG pCO2 POC ABG pO2 ABG pO2 ABG HCO3 ABG Base Excess ABG Hemoglobin Oxyhemoglobin Sodium Potassium Chloride Carbon Dioxide BUN Creatinine Glucose POC Glucose 114 H 141 H Lactic Acid Calcium Phosphorus Magnesium 2.70 H Direct Bilirubin AST ALT Alkaline Phosphatase Lactate Dehydrogenase Troponin T C-Reactive Protein Total Protein Albumin Prealbumin Triglycerides Cholesterol LDL Cholesterol Direct HDL Cholesterol Urine pH Urine WBC (Auto) Urine Creatinine Urine Total Protein Fluid Total Protein Vancomycin Trough Rheumatoid Factor Complement C4 Miscellaneous Test Crossmatch 09/21/16 09/21/16 09/21/16 07:45 07:45 10:01 WBC 13.8 H RBC 2.94 L Hgb 7.5 L Hct 23.5 L MCV MCH 26 L MCHC RDW 21.2 H Plt Count Lymph % (Auto) 6.9 L [place] % (Auto) 9.4 H Lymph # 0.9 L [place] # 1.3 H Baso # Seg Neutrophils % 83.2 H Seg Neuts % (Manual) Lymphocytes % (Manual) Monocytes % (Manual) Eosinophils % (Manual) Basophils % (Manual) Nucleated RBC % Seg Neutrophils # 11.5 H Seg Neutrophils # Man Lymphocytes # (Manual) Monocytes # (Manual) Eosinophils # (Manual) Basophils # (Manual) PT INR Fibrinogen dRVVT Confirm Interp Factor V Activity POC ABG pH 7.308 L POC ABG pCO2 31.9 L POC ABG pO2 148 H ABG pO2 ABG HCO3 ABG Base Excess ABG Hemoglobin Oxyhemoglobin Sodium 147 H Potassium Chloride 114.2 H Carbon Dioxide 15 L BUN 120 H Creatinine 3.9 H Glucose 156 H POC Glucose Lactic Acid Calcium 8.2 L Phosphorus Magnesium Direct Bilirubin AST ALT Alkaline Phosphatase Lactate Dehydrogenase Troponin T C-Reactive Protein Total Protein Albumin Prealbumin Triglycerides Cholesterol LDL Cholesterol Direct HDL Cholesterol Urine pH Urine WBC (Auto) Urine Creatinine Urine Total Protein Fluid Total Protein Vancomycin Trough Rheumatoid Factor Complement C4 Miscellaneous Test Crossmatch 09/21/16 09/21/16 09/21/16 12:00 12:03 13:00 WBC RBC Hgb Hct MCV MCH MCHC RDW Plt Count Lymph % (Auto) [place] % (Auto) Lymph # [place] # Baso # Seg Neutrophils % Seg Neuts % (Manual) Lymphocytes % (Manual) Monocytes % (Manual) Eosinophils % (Manual) Basophils % (Manual) Nucleated RBC % Seg Neutrophils # Seg Neutrophils # Man Lymphocytes # (Manual) Monocytes # (Manual) Eosinophils # (Manual) Basophils # (Manual) PT INR Fibrinogen dRVVT Confirm Interp Factor V Activity POC ABG pH POC ABG pCO2 POC ABG pO2 ABG pO2 ABG HCO3 ABG Base Excess ABG Hemoglobin Oxyhemoglobin Sodium Potassium Chloride Carbon Dioxide BUN Creatinine Glucose POC Glucose 163 H Lactic Acid Calcium Phosphorus Magnesium Direct Bilirubin AST ALT Alkaline Phosphatase Lactate Dehydrogenase Troponin T C-Reactive Protein Total Protein Albumin Prealbumin Triglycerides Cholesterol LDL Cholesterol Direct HDL Cholesterol Urine pH Urine WBC (Auto) Urine Creatinine 54.8 H Urine Total Protein Fluid Total Protein Vancomycin Trough 2.3 L Rheumatoid Factor Complement C4 Miscellaneous Test Crossmatch 09/21/16 09/21/16 09/22/16 16:51 23:17 06:27 WBC RBC Hgb Hct MCV MCH MCHC RDW Plt Count Lymph % (Auto) [place] % (Auto) Lymph # [place] # Baso # Seg Neutrophils % Seg Neuts % (Manual) Lymphocytes % (Manual) Monocytes % (Manual) Eosinophils % (Manual) Basophils % (Manual) Nucleated RBC % Seg Neutrophils # Seg Neutrophils # Man Lymphocytes # (Manual) Monocytes # (Manual) Eosinophils # (Manual) Basophils # (Manual) PT INR Fibrinogen dRVVT Confirm Interp Factor V Activity POC ABG pH POC ABG pCO2 POC ABG pO2 ABG pO2 ABG HCO3 ABG Base Excess ABG Hemoglobin Oxyhemoglobin Sodium Potassium Chloride Carbon Dioxide BUN Creatinine Glucose POC Glucose 206 H 114 H 115 H Lactic Acid Calcium Phosphorus Magnesium Direct Bilirubin AST ALT Alkaline Phosphatase Lactate Dehydrogenase Troponin T C-Reactive Protein Total Protein Albumin Prealbumin Triglycerides Cholesterol LDL Cholesterol Direct HDL Cholesterol Urine pH Urine WBC (Auto) Urine Creatinine Urine Total Protein Fluid Total Protein Vancomycin Trough Rheumatoid Factor Complement C4 Miscellaneous Test Crossmatch 09/22/16 09/22/16 09/22/16 07:50 07:50 12:00 WBC 17.8 H RBC 3.04 L Hgb 8.0 L Hct 24.7 L MCV MCH 26 L MCHC RDW 21.6 H Plt Count Lymph % (Auto) [place] % (Auto) Lymph # [place] # Baso # Seg Neutrophils % Seg Neuts % (Manual) Lymphocytes % (Manual) Monocytes % (Manual) Eosinophils % (Manual) Basophils % (Manual) Nucleated RBC % Seg Neutrophils # Seg Neutrophils # Man Lymphocytes # (Manual) Monocytes # (Manual) Eosinophils # (Manual) Basophils # (Manual) PT INR Fibrinogen dRVVT Confirm Interp Factor V Activity POC ABG pH POC ABG pCO2 POC ABG pO2 ABG pO2 ABG HCO3 ABG Base Excess ABG Hemoglobin Oxyhemoglobin Sodium 150 H Potassium Chloride 118.2 H Carbon Dioxide 14 L BUN 111 H Creatinine 3.7 H Glucose 157 H POC Glucose 183 H Lactic Acid Calcium Phosphorus Magnesium Direct Bilirubin AST ALT Alkaline Phosphatase Lactate Dehydrogenase Troponin T C-Reactive Protein Total Protein Albumin Prealbumin Triglycerides Cholesterol LDL Cholesterol Direct HDL Cholesterol Urine pH Urine WBC (Auto) Urine Creatinine Urine Total Protein Fluid Total Protein Vancomycin Trough Rheumatoid Factor Complement C4 Miscellaneous Test Crossmatch 09/22/16 09/22/16 09/23/16 17:29 23:10 05:00 WBC 19.2 H RBC 3.13 L Hgb 8.0 L Hct 25.2 L MCV MCH 26 L MCHC RDW 22.1 H Plt Count Lymph % (Auto) [place] % (Auto) Lymph # [place] # Baso # Seg Neutrophils % Seg Neuts % (Manual) 92.0 H Lymphocytes % (Manual) 3.0 L Monocytes % (Manual) Eosinophils % (Manual) Basophils % (Manual) Nucleated RBC % Seg Neutrophils # Seg Neutrophils # Man 17.7 H Lymphocytes # (Manual) 0.6 L Monocytes # (Manual) Eosinophils # (Manual) Basophils # (Manual) PT INR Fibrinogen dRVVT Confirm Interp Factor V Activity POC ABG pH POC ABG pCO2 POC ABG pO2 ABG pO2 ABG HCO3 ABG Base Excess ABG Hemoglobin Oxyhemoglobin Sodium Potassium Chloride Carbon Dioxide BUN Creatinine Glucose POC Glucose 197 H 169 H Lactic Acid Calcium Phosphorus Magnesium Direct Bilirubin AST ALT Alkaline Phosphatase Lactate Dehydrogenase Troponin T C-Reactive Protein Total Protein Albumin Prealbumin Triglycerides Cholesterol LDL Cholesterol Direct HDL Cholesterol Urine pH Urine WBC (Auto) Urine Creatinine Urine Total Protein Fluid Total Protein Vancomycin Trough Rheumatoid Factor Complement C4 Miscellaneous Test Crossmatch 09/23/16 09/23/16 09/23/16 05:00 05:00 05:10 WBC RBC Hgb Hct MCV MCH MCHC RDW Plt Count Lymph % (Auto) [place] % (Auto) Lymph # [place] # Baso # Seg Neutrophils % Seg Neuts % (Manual) Lymphocytes % (Manual) Monocytes % (Manual) Eosinophils % (Manual) Basophils % (Manual) Nucleated RBC % Seg Neutrophils # Seg Neutrophils # Man Lymphocytes # (Manual) Monocytes # (Manual) Eosinophils # (Manual) Basophils # (Manual) PT INR Fibrinogen dRVVT Confirm Interp Factor V Activity POC ABG pH POC ABG pCO2 POC ABG pO2 ABG pO2 ABG HCO3 ABG Base Excess ABG Hemoglobin Oxyhemoglobin Sodium 147 H Potassium 3.2 L Chloride 115.7 H Carbon Dioxide 13 L BUN 111 H Creatinine 3.8 H Glucose 194 H POC Glucose 188 H Lactic Acid Calcium 7.3 L D Phosphorus Magnesium Direct Bilirubin AST ALT Alkaline Phosphatase Lactate Dehydrogenase Troponin T C-Reactive Protein 3.20 H Total Protein Albumin Prealbumin Triglycerides Cholesterol LDL Cholesterol Direct HDL Cholesterol Urine pH Urine WBC (Auto) Urine Creatinine Urine Total Protein Fluid Total Protein Vancomycin Trough Rheumatoid Factor Complement C4 Miscellaneous Test Crossmatch 09/23/16 09/23/16 09/23/16 11:37 12:29 18:01 WBC RBC Hgb Hct MCV MCH MCHC RDW Plt Count Lymph % (Auto) [place] % (Auto) Lymph # [place] # Baso # Seg Neutrophils % Seg Neuts % (Manual) Lymphocytes % (Manual) Monocytes % (Manual) Eosinophils % (Manual) Basophils % (Manual) Nucleated RBC % Seg Neutrophils # Seg Neutrophils # Man Lymphocytes # (Manual) Monocytes # (Manual) Eosinophils # (Manual) Basophils # (Manual) PT INR Fibrinogen dRVVT Confirm Interp Factor V Activity POC ABG pH POC ABG pCO2 18.9 L POC ABG pO2 143 H ABG pO2 ABG HCO3 ABG Base Excess ABG Hemoglobin Oxyhemoglobin Sodium Potassium Chloride Carbon Dioxide BUN Creatinine Glucose POC Glucose 153 H 108 H Lactic Acid Calcium Phosphorus Magnesium Direct Bilirubin AST ALT Alkaline Phosphatase Lactate Dehydrogenase Troponin T C-Reactive Protein Total Protein Albumin Prealbumin Triglycerides Cholesterol LDL Cholesterol Direct HDL Cholesterol Urine pH Urine WBC (Auto) Urine Creatinine Urine Total Protein Fluid Total Protein Vancomycin Trough Rheumatoid Factor Complement C4 Miscellaneous Test Crossmatch 09/23/16 09/23/16 09/24/16 21:19 23:43 05:16 WBC RBC Hgb Hct MCV MCH MCHC RDW Plt Count Lymph % (Auto) [place] % (Auto) Lymph # [place] # Baso # Seg Neutrophils % Seg Neuts % (Manual) Lymphocytes % (Manual) Monocytes % (Manual) Eosinophils % (Manual) Basophils % (Manual) Nucleated RBC % Seg Neutrophils # Seg Neutrophils # Man Lymphocytes # (Manual) Monocytes # (Manual) Eosinophils # (Manual) Basophils # (Manual) PT INR Fibrinogen dRVVT Confirm Interp Factor V Activity POC ABG pH POC ABG pCO2 17.3 L POC ABG pO2 112 H ABG pO2 ABG HCO3 ABG Base Excess ABG Hemoglobin Oxyhemoglobin Sodium Potassium Chloride Carbon Dioxide BUN Creatinine Glucose POC Glucose 143 H 164 H Lactic Acid Calcium Phosphorus Magnesium Direct Bilirubin AST ALT Alkaline Phosphatase Lactate Dehydrogenase Troponin T C-Reactive Protein Total Protein Albumin Prealbumin Triglycerides Cholesterol LDL Cholesterol Direct HDL Cholesterol Urine pH Urine WBC (Auto) Urine Creatinine Urine Total Protein Fluid Total Protein Vancomycin Trough Rheumatoid Factor Complement C4 Miscellaneous Test Crossmatch 09/24/16 09/24/16 09/24/16 05:21 11:58 17:06 WBC RBC Hgb Hct MCV MCH MCHC RDW Plt Count Lymph % (Auto) [place] % (Auto) Lymph # [place] # Baso # Seg Neutrophils % Seg Neuts % (Manual) Lymphocytes % (Manual) Monocytes % (Manual) Eosinophils % (Manual) Basophils % (Manual) Nucleated RBC % Seg Neutrophils # Seg Neutrophils # Man Lymphocytes # (Manual) Monocytes # (Manual) Eosinophils # (Manual) Basophils # (Manual) PT INR Fibrinogen dRVVT Confirm Interp Factor V Activity POC ABG pH POC ABG pCO2 POC ABG pO2 ABG pO2 ABG HCO3 ABG Base Excess ABG Hemoglobin Oxyhemoglobin Sodium Potassium Chloride Carbon Dioxide 10 L BUN 103 H Creatinine 4.3 H Glucose 163 H POC Glucose 173 H 167 H Lactic Acid Calcium 6.5 L Phosphorus Magnesium Direct Bilirubin AST ALT Alkaline Phosphatase Lactate Dehydrogenase Troponin T C-Reactive Protein Total Protein Albumin Prealbumin Triglycerides Cholesterol LDL Cholesterol Direct HDL Cholesterol Urine pH Urine WBC (Auto) Urine Creatinine Urine Total Protein Fluid Total Protein Vancomycin Trough Rheumatoid Factor Complement C4 Miscellaneous Test Crossmatch 09/24/16 09/24/16 09/24/16 20:15 21:02 23:48 WBC RBC Hgb Hct MCV MCH MCHC RDW Plt Count Lymph % (Auto) [place] % (Auto) Lymph # [place] # Baso # Seg Neutrophils % Seg Neuts % (Manual) Lymphocytes % (Manual) Monocytes % (Manual) Eosinophils % (Manual) Basophils % (Manual) Nucleated RBC % Seg Neutrophils # Seg Neutrophils # Man Lymphocytes # (Manual) Monocytes # (Manual) Eosinophils # (Manual) Basophils # (Manual) PT INR Fibrinogen dRVVT Confirm Interp Factor V Activity POC ABG pH 7.288 L POC ABG pCO2 30.2 L 21.5 L POC ABG pO2 32 L 39 L ABG pO2 ABG HCO3 ABG Base Excess ABG Hemoglobin Oxyhemoglobin Sodium Potassium Chloride Carbon Dioxide BUN Creatinine Glucose POC Glucose 109 H Lactic Acid Calcium Phosphorus Magnesium Direct Bilirubin AST ALT Alkaline Phosphatase Lactate Dehydrogenase Troponin T C-Reactive Protein Total Protein Albumin Prealbumin Triglycerides Cholesterol LDL Cholesterol Direct HDL Cholesterol Urine pH Urine WBC (Auto) Urine Creatinine Urine Total Protein Fluid Total Protein Vancomycin Trough Rheumatoid Factor Complement C4 Miscellaneous Test Crossmatch 09/25/16 09/25/16 09/25/16 04:20 04:20 04:20 WBC RBC 2.58 L Hgb 7.0 L Hct 21.0 L MCV MCH 27 L MCHC RDW 23.8 H Plt Count Lymph % (Auto) [place] % (Auto) Lymph # [place] # Baso # Seg Neutrophils % Seg Neuts % (Manual) Lymphocytes % (Manual) 12.0 L Monocytes % (Manual) Eosinophils % (Manual) 7.0 H Basophils % (Manual) 2.0 H Nucleated RBC % Seg Neutrophils # Seg Neutrophils # Man Lymphocytes # (Manual) 0.9 L Monocytes # (Manual) Eosinophils # (Manual) 0.5 H Basophils # (Manual) PT INR Fibrinogen dRVVT Confirm Interp Factor V Activity POC ABG pH POC ABG pCO2 POC ABG pO2 ABG pO2 ABG HCO3 ABG Base Excess ABG Hemoglobin Oxyhemoglobin Sodium Potassium Chloride Carbon Dioxide 15 L BUN 72 H Creatinine 3.8 H Glucose POC Glucose Lactic Acid Calcium 6.0 L Phosphorus 4.60 H Magnesium 1.60 L Direct Bilirubin AST ALT Alkaline Phosphatase Lactate Dehydrogenase Troponin T C-Reactive Protein Total Protein Albumin Prealbumin Triglycerides Cholesterol LDL Cholesterol Direct HDL Cholesterol Urine pH Urine WBC (Auto) Urine Creatinine Urine Total Protein Fluid Total Protein Vancomycin Trough Rheumatoid Factor Complement C4 Miscellaneous Test Crossmatch 09/25/16 09/25/16 09/25/16 04:57 08:02 10:30 WBC RBC Hgb Hct MCV MCH MCHC RDW Plt Count Lymph % (Auto) [place] % (Auto) Lymph # [place] # Baso # Seg Neutrophils % Seg Neuts % (Manual) Lymphocytes % (Manual) Monocytes % (Manual) Eosinophils % (Manual) Basophils % (Manual) Nucleated RBC % Seg Neutrophils # Seg Neutrophils # Man Lymphocytes # (Manual) Monocytes # (Manual) Eosinophils # (Manual) Basophils # (Manual) PT INR Fibrinogen dRVVT Confirm Interp Factor V Activity POC ABG pH POC ABG pCO2 24.7 L POC ABG pO2 152 H ABG pO2 ABG HCO3 ABG Base Excess ABG Hemoglobin Oxyhemoglobin Sodium Potassium Chloride Carbon Dioxide BUN Creatinine Glucose POC Glucose 113 H Lactic Acid Calcium Phosphorus Magnesium Direct Bilirubin AST ALT Alkaline Phosphatase Lactate Dehydrogenase Troponin T C-Reactive Protein Total Protein Albumin Prealbumin Triglycerides Cholesterol LDL Cholesterol Direct HDL Cholesterol Urine pH Urine WBC (Auto) Urine Creatinine Urine Total Protein Fluid Total Protein Vancomycin Trough Rheumatoid Factor Complement C4 Miscellaneous Test Crossmatch See Detail 09/25/16 09/25/16 09/25/16 12:05 17:44 23:47 WBC RBC Hgb Hct MCV MCH MCHC RDW Plt Count Lymph % (Auto) Wilkin % (Auto) Lymph # Wilkin # Baso # Seg Neutrophils % Seg Neuts % (Manual) Lymphocytes % (Manual) Monocytes % (Manual) Eosinophils % (Manual) Basophils % (Manual) Nucleated RBC % Seg Neutrophils # Seg Neutrophils # Man Lymphocytes # (Manual) Monocytes # (Manual) Eosinophils # (Manual) Basophils # (Manual) PT INR Fibrinogen dRVVT Confirm Interp Factor V Activity POC ABG pH POC ABG pCO2 POC ABG pO2 ABG pO2 ABG HCO3 ABG Base Excess ABG Hemoglobin Oxyhemoglobin Sodium Potassium Chloride Carbon Dioxide BUN Creatinine Glucose POC Glucose 117 H 119 H 150 H Lactic Acid Calcium Phosphorus Magnesium Direct Bilirubin AST ALT Alkaline Phosphatase Lactate Dehydrogenase Troponin T C-Reactive Protein Total Protein Albumin Prealbumin Triglycerides Cholesterol LDL Cholesterol Direct HDL Cholesterol Urine pH Urine WBC (Auto) Urine Creatinine Urine Total Protein Fluid Total Protein Vancomycin Trough Rheumatoid Factor Complement C4 Miscellaneous Test Crossmatch 09/26/16 09/26/16 09/26/16 04:25 04:25 04:25 WBC RBC 2.65 L Hgb 7.4 L Hct 21.6 L MCV MCH MCHC RDW 22.5 H Plt Count Lymph % (Auto) Wilkin % (Auto) Lymph # [place]kin # Baso # Seg Neutrophils % Seg Neuts % (Manual) Lymphocytes % (Manual) 6.0 L Monocytes % (Manual) Eosinophils % (Manual) 11.0 H Basophils % (Manual) Nucleated RBC % Seg Neutrophils # Seg Neutrophils # Man Lymphocytes # (Manual) 0.4 L Monocytes # (Manual) Eosinophils # (Manual) 0.6 H Basophils # (Manual) PT INR Fibrinogen dRVVT Confirm Interp Factor V Activity POC ABG pH POC ABG pCO2 POC ABG pO2 ABG pO2 ABG HCO3 ABG Base Excess ABG Hemoglobin Oxyhemoglobin Sodium Potassium Chloride 97.0 L Carbon Dioxide 19 L BUN 43 H Creatinine 2.6 H Glucose 130 H POC Glucose Lactic Acid 4.40 H* Calcium 6.7 L Phosphorus Magnesium Direct Bilirubin AST ALT Alkaline Phosphatase Lactate Dehydrogenase Troponin T C-Reactive Protein Total Protein Albumin Prealbumin Triglycerides Cholesterol LDL Cholesterol Direct HDL Cholesterol Urine pH Urine WBC (Auto) Urine Creatinine Urine Total Protein Fluid Total Protein Vancomycin Trough Rheumatoid Factor Complement C4 Miscellaneous Test Crossmatch 09/26/16 09/26/16 09/26/16 05:20 11:44 12:12 WBC RBC Hgb Hct MCV MCH MCHC RDW Plt Count Lymph % (Auto) Wilkin % (Auto) Lymph # [place] # Baso # Seg Neutrophils % Seg Neuts % (Manual) Lymphocytes % (Manual) Monocytes % (Manual) Eosinophils % (Manual) Basophils % (Manual) Nucleated RBC % Seg Neutrophils # Seg Neutrophils # Man Lymphocytes # (Manual) Monocytes # (Manual) Eosinophils # (Manual) Basophils # (Manual) PT INR Fibrinogen dRVVT Confirm Interp Factor V Activity POC ABG pH POC ABG pCO2 27.0 L POC ABG pO2 69 L ABG pO2 ABG HCO3 ABG Base Excess ABG Hemoglobin Oxyhemoglobin Sodium Potassium Chloride Carbon Dioxide BUN Creatinine Glucose POC Glucose 121 H 128 H Lactic Acid Calcium Phosphorus Magnesium Direct Bilirubin AST ALT Alkaline Phosphatase Lactate Dehydrogenase Troponin T C-Reactive Protein Total Protein Albumin Prealbumin Triglycerides Cholesterol LDL Cholesterol Direct HDL Cholesterol Urine pH Urine WBC (Auto) Urine Creatinine Urine Total Protein Fluid Total Protein Vancomycin Trough Rheumatoid Factor Complement C4 Miscellaneous Test Crossmatch 09/26/16 09/26/16 09/27/16 18:31 23:40 08:20 WBC RBC Hgb Hct MCV MCH MCHC RDW Plt Count Lymph % (Auto) [place]kin % (Auto) Lymph # [place] # Baso # Seg Neutrophils % Seg Neuts % (Manual) Lymphocytes % (Manual) Monocytes % (Manual) Eosinophils % (Manual) Basophils % (Manual) Nucleated RBC % Seg Neutrophils # Seg Neutrophils # Man Lymphocytes # (Manual) Monocytes # (Manual) Eosinophils # (Manual) Basophils # (Manual) PT INR Fibrinogen dRVVT Confirm Interp Factor V Activity POC ABG pH POC ABG pCO2 POC ABG pO2 ABG pO2 ABG HCO3 ABG Base Excess ABG Hemoglobin Oxyhemoglobin Sodium Potassium Chloride Carbon Dioxide BUN Creatinine Glucose POC Glucose 120 H 133 H Lactic Acid 4.10 H* Calcium Phosphorus Magnesium Direct Bilirubin AST ALT Alkaline Phosphatase Lactate Dehydrogenase Troponin T C-Reactive Protein Total Protein Albumin Prealbumin Triglycerides Cholesterol LDL Cholesterol Direct HDL Cholesterol Urine pH Urine WBC (Auto) Urine Creatinine Urine Total Protein Fluid Total Protein Vancomycin Trough Rheumatoid Factor Complement C4 Miscellaneous Test Crossmatch 09/27/16 09/27/16 09/27/16 11:23 15:00 18:15 WBC RBC Hgb Hct MCV MCH MCHC RDW Plt Count Lymph % (Auto) Wilkin % (Auto) Lymph # [place] # Baso # Seg Neutrophils % Seg Neuts % (Manual) Lymphocytes % (Manual) Monocytes % (Manual) Eosinophils % (Manual) Basophils % (Manual) Nucleated RBC % Seg Neutrophils # Seg Neutrophils # Man Lymphocytes # (Manual) Monocytes # (Manual) Eosinophils # (Manual) Basophils # (Manual) PT INR Fibrinogen dRVVT Confirm Interp Factor V Activity POC ABG pH 7.459 H POC ABG pCO2 27.1 L POC ABG pO2 140 H ABG pO2 ABG HCO3 ABG Base Excess ABG Hemoglobin Oxyhemoglobin Sodium Potassium Chloride Carbon Dioxide BUN Creatinine Glucose POC Glucose 114 H 127 H Lactic Acid Calcium Phosphorus Magnesium Direct Bilirubin AST ALT Alkaline Phosphatase Lactate Dehydrogenase Troponin T C-Reactive Protein Total Protein Albumin Prealbumin Triglycerides Cholesterol LDL Cholesterol Direct HDL Cholesterol Urine pH Urine WBC (Auto) Urine Creatinine Urine Total Protein Fluid Total Protein Vancomycin Trough Rheumatoid Factor Complement C4 Miscellaneous Test Crossmatch 09/27/16 09/27/16 09/28/16 Unknown Unknown 03:45 WBC RBC 2.49 L Hgb 6.8 L Hct 20.7 L MCV MCH 27 L MCHC RDW 22.1 H Plt Count Lymph % (Auto) Wilkin % (Auto) Lymph # [place] # Baso # Seg Neutrophils % Seg Neuts % (Manual) 32.0 L Lymphocytes % (Manual) 12.0 L Monocytes % (Manual) 11.0 H Eosinophils % (Manual) 10.0 H Basophils % (Manual) Nucleated RBC % Seg Neutrophils # Seg Neutrophils # Man Lymphocytes # (Manual) 1.0 L Monocytes # (Manual) 0.9 H Eosinophils # (Manual) 0.8 H Basophils # (Manual) PT INR Fibrinogen dRVVT Confirm Interp Factor V Activity POC ABG pH POC ABG pCO2 POC ABG pO2 ABG pO2 ABG HCO3 ABG Base Excess ABG Hemoglobin Oxyhemoglobin Sodium 135 L 135 L Potassium 3.5 L Chloride 93.6 L 94.4 L Carbon Dioxide 17 L 21 L BUN 45 H 28 H Creatinine 3.3 H 2.5 H Glucose 106 H POC Glucose Lactic Acid Calcium 7.3 L 7.1 L Phosphorus Magnesium Direct Bilirubin AST ALT Alkaline Phosphatase Lactate Dehydrogenase Troponin T C-Reactive Protein Total Protein Albumin Prealbumin Triglycerides Cholesterol LDL Cholesterol Direct HDL Cholesterol Urine pH Urine WBC (Auto) Urine Creatinine Urine Total Protein Fluid Total Protein Vancomycin Trough Rheumatoid Factor Complement C4 Miscellaneous Test Crossmatch 09/28/16 09/28/16 09/28/16 03:45 07:25 11:58 WBC 13.3 H RBC 3.01 L Hgb 8.4 L Hct 25.0 L MCV MCH MCHC RDW 20.5 H Plt Count 128 L Lymph % (Auto) Wilkin % (Auto) Lymph # [place] # Baso # Seg Neutrophils % Seg Neuts % (Manual) Lymphocytes % (Manual) 7.0 L Monocytes % (Manual) Eosinophils % (Manual) 6.0 H Basophils % (Manual) Nucleated RBC % Seg Neutrophils # Seg Neutrophils # Man Lymphocytes # (Manual) 0.9 L Monocytes # (Manual) Eosinophils # (Manual) 0.8 H Basophils # (Manual) PT INR Fibrinogen dRVVT Confirm Interp Factor V Activity POC ABG pH POC ABG pCO2 POC ABG pO2 ABG pO2 ABG HCO3 ABG Base Excess ABG Hemoglobin Oxyhemoglobin Sodium Potassium Chloride Carbon Dioxide BUN Creatinine Glucose POC Glucose 121 H Lactic Acid 4.50 H* Calcium Phosphorus Magnesium Direct Bilirubin AST ALT Alkaline Phosphatase Lactate Dehydrogenase Troponin T C-Reactive Protein Total Protein Albumin Prealbumin Triglycerides Cholesterol LDL Cholesterol Direct HDL Cholesterol Urine pH Urine WBC (Auto) Urine Creatinine Urine Total Protein Fluid Total Protein Vancomycin Trough Rheumatoid Factor Complement C4 Miscellaneous Test Crossmatch 09/29/16 09/29/16 09/29/16 06:45 06:45 06:45 WBC 14.9 H RBC 2.74 L Hgb 7.6 L Hct 23.2 L MCV MCH MCHC RDW 20.5 H Plt Count 81 L Lymph % (Auto) Wilkin % (Auto) Lymph # [place] # Baso # Seg Neutrophils % Seg Neuts % (Manual) 81.0 H Lymphocytes % (Manual) 4.0 L Monocytes % (Manual) Eosinophils % (Manual) Basophils % (Manual) Nucleated RBC % Seg Neutrophils # Seg Neutrophils # Man 12.1 H Lymphocytes # (Manual) 0.6 L Monocytes # (Manual) Eosinophils # (Manual) Basophils # (Manual) PT INR Fibrinogen dRVVT Confirm Interp Factor V Activity POC ABG pH POC ABG pCO2 POC ABG pO2 ABG pO2 ABG HCO3 ABG Base Excess ABG Hemoglobin Oxyhemoglobin Sodium 133 L Potassium 3.4 L Chloride 92.5 L Carbon Dioxide 21 L BUN 33 H Creatinine 3.0 H Glucose POC Glucose Lactic Acid Calcium 6.6 L Phosphorus Magnesium 1.40 L Direct Bilirubin 0.9 H AST ALT Alkaline Phosphatase Lactate Dehydrogenase Troponin T C-Reactive Protein Total Protein 4.3 L Albumin 1.3 L Prealbumin Triglycerides Cholesterol LDL Cholesterol Direct HDL Cholesterol Urine pH Urine WBC (Auto) Urine Creatinine Urine Total Protein Fluid Total Protein Vancomycin Trough Rheumatoid Factor Complement C4 Miscellaneous Test Crossmatch 09/29/16 09/29/16 09/30/16 17:52 20:12 00:07 WBC RBC Hgb Hct MCV MCH MCHC RDW Plt Count Lymph % (Auto) Wilkin % (Auto) Lymph # [place] # Baso # Seg Neutrophils % Seg Neuts % (Manual) Lymphocytes % (Manual) Monocytes % (Manual) Eosinophils % (Manual) Basophils % (Manual) Nucleated RBC % Seg Neutrophils # Seg Neutrophils # Man Lymphocytes # (Manual) Monocytes # (Manual) Eosinophils # (Manual) Basophils # (Manual) PT INR Fibrinogen dRVVT Confirm Interp Factor V Activity POC ABG pH POC ABG pCO2 POC ABG pO2 ABG pO2 ABG HCO3 ABG Base Excess ABG Hemoglobin Oxyhemoglobin Sodium Potassium Chloride Carbon Dioxide BUN Creatinine Glucose POC Glucose 50 L 51 L Lactic Acid Calcium Phosphorus Magnesium Direct Bilirubin AST ALT Alkaline Phosphatase Lactate Dehydrogenase Troponin T 0.204 H* C-Reactive Protein Total Protein Albumin Prealbumin Triglycerides Cholesterol 31 L LDL Cholesterol Direct 4 L HDL Cholesterol 3 L Urine pH Urine WBC (Auto) Urine Creatinine Urine Total Protein Fluid Total Protein Vancomycin Trough Rheumatoid Factor Complement C4 Miscellaneous Test Crossmatch 09/30/16 09/30/16 09/30/16 01:30 05:15 06:10 WBC RBC Hgb Hct MCV MCH MCHC RDW Plt Count Lymph % (Auto) Wilkin % (Auto) Lymph # [place] # Baso # Seg Neutrophils % Seg Neuts % (Manual) Lymphocytes % (Manual) Monocytes % (Manual) Eosinophils % (Manual) Basophils % (Manual) Nucleated RBC % Seg Neutrophils # Seg Neutrophils # Man Lymphocytes # (Manual) Monocytes # (Manual) Eosinophils # (Manual) Basophils # (Manual) PT INR Fibrinogen dRVVT Confirm Interp Factor V Activity POC ABG pH POC ABG pCO2 POC ABG pO2 ABG pO2 ABG HCO3 ABG Base Excess ABG Hemoglobin Oxyhemoglobin Sodium 133 L Potassium 3.2 L Chloride 93.2 L Carbon Dioxide 19 L BUN 36 H Creatinine 3.2 H Glucose 104 H POC Glucose 167 H 146 H Lactic Acid Calcium 6.4 L Phosphorus Magnesium 1.60 L Direct Bilirubin AST ALT Alkaline Phosphatase Lactate Dehydrogenase Troponin T C-Reactive Protein Total Protein Albumin Prealbumin Triglycerides Cholesterol LDL Cholesterol Direct HDL Cholesterol Urine pH Urine WBC (Auto) Urine Creatinine Urine Total Protein Fluid Total Protein Vancomycin Trough Rheumatoid Factor Complement C4 Miscellaneous Test Crossmatch 09/30/16 09/30/16 09/30/16 11:26 13:39 18:38 WBC RBC Hgb Hct MCV MCH MCHC RDW Plt Count Lymph % (Auto) Wilkin % (Auto) Lymph # [place] # Baso # Seg Neutrophils % Seg Neuts % (Manual) Lymphocytes % (Manual) Monocytes % (Manual) Eosinophils % (Manual) Basophils % (Manual) Nucleated RBC % Seg Neutrophils # Seg Neutrophils # Man Lymphocytes # (Manual) Monocytes # (Manual) Eosinophils # (Manual) Basophils # (Manual) PT INR Fibrinogen dRVVT Confirm Interp Factor V Activity POC ABG pH 7.479 H POC ABG pCO2 29.8 L POC ABG pO2 117 H ABG pO2 ABG HCO3 ABG Base Excess ABG Hemoglobin Oxyhemoglobin Sodium Potassium Chloride Carbon Dioxide BUN Creatinine Glucose POC Glucose 140 H 122 H Lactic Acid Calcium Phosphorus Magnesium Direct Bilirubin AST ALT Alkaline Phosphatase Lactate Dehydrogenase Troponin T C-Reactive Protein Total Protein Albumin Prealbumin Triglycerides Cholesterol LDL Cholesterol Direct HDL Cholesterol Urine pH Urine WBC (Auto) Urine Creatinine Urine Total Protein Fluid Total Protein Vancomycin Trough Rheumatoid Factor Complement C4 Miscellaneous Test Crossmatch 10/01/16 10/01/16 10/01/16 06:00 06:00 12:37 WBC 12.6 H RBC 2.75 L Hgb 7.3 L Hct 23.3 L MCV MCH 27 L MCHC RDW 20.6 H Plt Count 72 L Lymph % (Auto) Wilkin % (Auto) Lymph # [place] # Baso # Seg Neutrophils % Seg Neuts % (Manual) 31.0 L Lymphocytes % (Manual) 8.0 L Monocytes % (Manual) Eosinophils % (Manual) Basophils % (Manual) Nucleated RBC % 3.0 H Seg Neutrophils # Seg Neutrophils # Man Lymphocytes # (Manual) 1.0 L Monocytes # (Manual) Eosinophils # (Manual) Basophils # (Manual) PT INR Fibrinogen dRVVT Confirm Interp Factor V Activity POC ABG pH POC ABG pCO2 POC ABG pO2 ABG pO2 ABG HCO3 ABG Base Excess ABG Hemoglobin Oxyhemoglobin Sodium 127 L Potassium Chloride 86.8 L Carbon Dioxide 20 L BUN 42 H Creatinine 3.5 H Glucose POC Glucose 65 L Lactic Acid Calcium 7.0 L Phosphorus Magnesium Direct Bilirubin AST ALT Alkaline Phosphatase Lactate Dehydrogenase Troponin T C-Reactive Protein Total Protein Albumin Prealbumin Triglycerides Cholesterol LDL Cholesterol Direct HDL Cholesterol Urine pH Urine WBC (Auto) Urine Creatinine Urine Total Protein Fluid Total Protein Vancomycin Trough Rheumatoid Factor Complement C4 Miscellaneous Test Crossmatch 10/01/16 10/01/16 10/02/16 17:39 23:32 00:59 WBC RBC Hgb Hct MCV MCH MCHC RDW Plt Count Lymph % (Auto) Wilkin % (Auto) Lymph # [place] # Baso # Seg Neutrophils % Seg Neuts % (Manual) Lymphocytes % (Manual) Monocytes % (Manual) Eosinophils % (Manual) Basophils % (Manual) Nucleated RBC % Seg Neutrophils # Seg Neutrophils # Man Lymphocytes # (Manual) Monocytes # (Manual) Eosinophils # (Manual) Basophils # (Manual) PT INR Fibrinogen dRVVT Confirm Interp Factor V Activity POC ABG pH POC ABG pCO2 POC ABG pO2 ABG pO2 ABG HCO3 ABG Base Excess ABG Hemoglobin Oxyhemoglobin Sodium Potassium Chloride Carbon Dioxide BUN Creatinine Glucose POC Glucose 107 H 52 L 145 H Lactic Acid Calcium Phosphorus Magnesium Direct Bilirubin AST ALT Alkaline Phosphatase Lactate Dehydrogenase Troponin T C-Reactive Protein Total Protein Albumin Prealbumin Triglycerides Cholesterol LDL Cholesterol Direct HDL Cholesterol Urine pH Urine WBC (Auto) Urine Creatinine Urine Total Protein Fluid Total Protein Vancomycin Trough Rheumatoid Factor Complement C4 Miscellaneous Test Crossmatch 10/02/16 10/02/16 10/02/16 10:30 10:50 10:50 WBC 14.7 H RBC 2.76 L Hgb 7.4 L Hct 23.6 L MCV MCH 27 L MCHC RDW 20.2 H Plt Count 79 L Lymph % (Auto) [place]kin % (Auto) Lymph # [place] # Baso # Seg Neutrophils % Seg Neuts % (Manual) 86.0 H Lymphocytes % (Manual) 6.0 L Monocytes % (Manual) Eosinophils % (Manual) Basophils % (Manual) Nucleated RBC % Seg Neutrophils # Seg Neutrophils # Man 12.6 H Lymphocytes # (Manual) 0.9 L Monocytes # (Manual) Eosinophils # (Manual) Basophils # (Manual) PT INR Fibrinogen dRVVT Confirm Interp Factor V Activity POC ABG pH 7.486 H POC ABG pCO2 30.1 L POC ABG pO2 108 H ABG pO2 ABG HCO3 ABG Base Excess ABG Hemoglobin Oxyhemoglobin Sodium 131 L Potassium 3.4 L Chloride 89.9 L Carbon Dioxide BUN 26 H Creatinine 2.6 H Glucose POC Glucose Lactic Acid Calcium 7.0 L Phosphorus Magnesium Direct Bilirubin AST ALT Alkaline Phosphatase Lactate Dehydrogenase Troponin T C-Reactive Protein Total Protein Albumin Prealbumin Triglycerides Cholesterol LDL Cholesterol Direct HDL Cholesterol Urine pH Urine WBC (Auto) Urine Creatinine Urine Total Protein Fluid Total Protein Vancomycin Trough Rheumatoid Factor Complement C4 Miscellaneous Test Crossmatch 10/02/16 10/03/16 10/03/16 23:45 00:45 05:10 WBC 12.9 H RBC 2.77 L Hgb 7.6 L Hct 23.7 L MCV MCH 27 L MCHC RDW 19.7 H Plt Count 89 L Lymph % (Auto) [place]kin % (Auto) Lymph # [place] # Baso # Seg Neutrophils % Seg Neuts % (Manual) Lymphocytes % (Manual) 8.0 L Monocytes % (Manual) Eosinophils % (Manual) Basophils % (Manual) Nucleated RBC % Seg Neutrophils # 11.9 H Seg Neutrophils # Man Lymphocytes # (Manual) 1.0 L Monocytes # (Manual) Eosinophils # (Manual) Basophils # (Manual) PT INR Fibrinogen dRVVT Confirm Interp Factor V Activity POC ABG pH POC ABG pCO2 POC ABG pO2 ABG pO2 ABG HCO3 ABG Base Excess ABG Hemoglobin Oxyhemoglobin Sodium Potassium Chloride Carbon Dioxide BUN Creatinine Glucose POC Glucose 55 L 199 H Lactic Acid Calcium Phosphorus Magnesium Direct Bilirubin AST ALT Alkaline Phosphatase Lactate Dehydrogenase Troponin T C-Reactive Protein Total Protein Albumin Prealbumin Triglycerides Cholesterol LDL Cholesterol Direct HDL Cholesterol Urine pH Urine WBC (Auto) Urine Creatinine Urine Total Protein Fluid Total Protein Vancomycin Trough Rheumatoid Factor Complement C4 Miscellaneous Test Crossmatch 10/03/16 10/03/16 10/03/16 05:10 12:14 13:18 WBC RBC Hgb Hct MCV MCH MCHC RDW Plt Count Lymph % (Auto) [place]kin % (Auto) Lymph # [place] # Baso # Seg Neutrophils % Seg Neuts % (Manual) Lymphocytes % (Manual) Monocytes % (Manual) Eosinophils % (Manual) Basophils % (Manual) Nucleated RBC % Seg Neutrophils # Seg Neutrophils # Man Lymphocytes # (Manual) Monocytes # (Manual) Eosinophils # (Manual) Basophils # (Manual) PT INR Fibrinogen dRVVT Confirm Interp Factor V Activity POC ABG pH POC ABG pCO2 POC ABG pO2 ABG pO2 ABG HCO3 ABG Base Excess ABG Hemoglobin Oxyhemoglobin Sodium 129 L Potassium 3.3 L Chloride 88.8 L Carbon Dioxide 20 L BUN 29 H Creatinine 2.8 H Glucose POC Glucose 68 L 127 H Lactic Acid Calcium 7.2 L Phosphorus Magnesium Direct Bilirubin AST ALT Alkaline Phosphatase Lactate Dehydrogenase Troponin T C-Reactive Protein Total Protein Albumin Prealbumin Triglycerides Cholesterol LDL Cholesterol Direct HDL Cholesterol Urine pH Urine WBC (Auto) Urine Creatinine Urine Total Protein Fluid Total Protein Vancomycin Trough Rheumatoid Factor Complement C4 Miscellaneous Test Crossmatch 10/03/16 10/03/16 10/03/16 14:42 18:21 19:09 WBC RBC Hgb Hct MCV MCH MCHC RDW Plt Count Lymph % (Auto) [place]kin % (Auto) Lymph # [place]kin # Baso # Seg Neutrophils % Seg Neuts % (Manual) Lymphocytes % (Manual) Monocytes % (Manual) Eosinophils % (Manual) Basophils % (Manual) Nucleated RBC % Seg Neutrophils # Seg Neutrophils # Man Lymphocytes # (Manual) Monocytes # (Manual) Eosinophils # (Manual) Basophils # (Manual) PT INR Fibrinogen dRVVT Confirm Interp Factor V Activity POC ABG pH 7.499 H POC ABG pCO2 28.4 L POC ABG pO2 44 L ABG pO2 ABG HCO3 ABG Base Excess ABG Hemoglobin Oxyhemoglobin Sodium Potassium Chloride Carbon Dioxide BUN Creatinine Glucose POC Glucose 64 L 205 H Lactic Acid Calcium Phosphorus Magnesium Direct Bilirubin AST ALT Alkaline Phosphatase Lactate Dehydrogenase Troponin T C-Reactive Protein Total Protein Albumin Prealbumin Triglycerides Cholesterol LDL Cholesterol Direct HDL Cholesterol Urine pH Urine WBC (Auto) Urine Creatinine Urine Total Protein Fluid Total Protein Vancomycin Trough Rheumatoid Factor Complement C4 Miscellaneous Test Crossmatch 10/03/16 10/04/16 10/04/16 23:33 04:18 06:30 WBC RBC 2.54 L Hgb 7.1 L Hct 21.7 L MCV MCH MCHC RDW 19.5 H Plt Count 76 L Lymph % (Auto) [place]kin % (Auto) Lymph # [place] # Baso # Seg Neutrophils % Seg Neuts % (Manual) 88.0 H Lymphocytes % (Manual) 6.0 L Monocytes % (Manual) Eosinophils % (Manual) Basophils % (Manual) Nucleated RBC % Seg Neutrophils # Seg Neutrophils # Man 8.8 H Lymphocytes # (Manual) 0.6 L Monocytes # (Manual) Eosinophils # (Manual) Basophils # (Manual) PT INR Fibrinogen dRVVT Confirm Interp Factor V Activity POC ABG pH 7.461 H POC ABG pCO2 33.6 L POC ABG pO2 211 H ABG pO2 ABG HCO3 ABG Base Excess ABG Hemoglobin Oxyhemoglobin Sodium Potassium Chloride Carbon Dioxide BUN Creatinine Glucose POC Glucose 136 H Lactic Acid Calcium Phosphorus Magnesium Direct Bilirubin AST ALT Alkaline Phosphatase Lactate Dehydrogenase Troponin T C-Reactive Protein Total Protein Albumin Prealbumin Triglycerides Cholesterol LDL Cholesterol Direct HDL Cholesterol Urine pH Urine WBC (Auto) Urine Creatinine Urine Total Protein Fluid Total Protein Vancomycin Trough Rheumatoid Factor Complement C4 Miscellaneous Test Crossmatch 10/04/16 10/04/16 10/04/16 06:30 11:45 17:54 WBC RBC Hgb Hct MCV MCH MCHC RDW Plt Count Lymph % (Auto) [place]kin % (Auto) Lymph # [place]kin # Baso # Seg Neutrophils % Seg Neuts % (Manual) Lymphocytes % (Manual) Monocytes % (Manual) Eosinophils % (Manual) Basophils % (Manual) Nucleated RBC % Seg Neutrophils # Seg Neutrophils # Man Lymphocytes # (Manual) Monocytes # (Manual) Eosinophils # (Manual) Basophils # (Manual) PT INR Fibrinogen dRVVT Confirm Interp Factor V Activity POC ABG pH POC ABG pCO2 POC ABG pO2 ABG pO2 ABG HCO3 ABG Base Excess ABG Hemoglobin Oxyhemoglobin Sodium 128 L Potassium Chloride 87.4 L Carbon Dioxide 20 L BUN 34 H Creatinine 2.9 H Glucose 127 H POC Glucose 158 H 160 H Lactic Acid Calcium 7.4 L Phosphorus Magnesium Direct Bilirubin AST ALT Alkaline Phosphatase Lactate Dehydrogenase Troponin T C-Reactive Protein Total Protein Albumin Prealbumin Triglycerides Cholesterol LDL Cholesterol Direct HDL Cholesterol Urine pH Urine WBC (Auto) Urine Creatinine Urine Total Protein Fluid Total Protein Vancomycin Trough Rheumatoid Factor Complement C4 Miscellaneous Test Crossmatch 10/04/16 10/05/16 10/05/16 23:25 04:30 05:00 WBC RBC 2.64 L Hgb 7.5 L Hct 22.6 L MCV MCH MCHC RDW 19.3 H Plt Count 80 L Lymph % (Auto) [place] % (Auto) Lymph # [place] # Baso # Seg Neutrophils % Seg Neuts % (Manual) Lymphocytes % (Manual) 12.0 L Monocytes % (Manual) Eosinophils % (Manual) Basophils % (Manual) Nucleated RBC % Seg Neutrophils # Seg Neutrophils # Man Lymphocytes # (Manual) Monocytes # (Manual) Eosinophils # (Manual) Basophils # (Manual) PT INR Fibrinogen dRVVT Confirm Interp Factor V Activity POC ABG pH 7.475 H POC ABG pCO2 33.3 L POC ABG pO2 140 H ABG pO2 ABG HCO3 ABG Base Excess ABG Hemoglobin Oxyhemoglobin Sodium Potassium Chloride Carbon Dioxide BUN Creatinine Glucose POC Glucose 141 H Lactic Acid Calcium Phosphorus Magnesium Direct Bilirubin AST ALT Alkaline Phosphatase Lactate Dehydrogenase Troponin T C-Reactive Protein Total Protein Albumin Prealbumin Triglycerides Cholesterol LDL Cholesterol Direct HDL Cholesterol Urine pH Urine WBC (Auto) Urine Creatinine Urine Total Protein Fluid Total Protein Vancomycin Trough Rheumatoid Factor Complement C4 Miscellaneous Test Crossmatch 10/05/16 10/05/16 10/05/16 05:00 05:09 12:58 WBC RBC Hgb Hct MCV MCH MCHC RDW Plt Count Lymph % (Auto) [place] % (Auto) Lymph # [place]kin # Baso # Seg Neutrophils % Seg Neuts % (Manual) Lymphocytes % (Manual) Monocytes % (Manual) Eosinophils % (Manual) Basophils % (Manual) Nucleated RBC % Seg Neutrophils # Seg Neutrophils # Man Lymphocytes # (Manual) Monocytes # (Manual) Eosinophils # (Manual) Basophils # (Manual) PT INR Fibrinogen dRVVT Confirm Interp Factor V Activity POC ABG pH POC ABG pCO2 POC ABG pO2 ABG pO2 ABG HCO3 ABG Base Excess ABG Hemoglobin Oxyhemoglobin Sodium 131 L Potassium Chloride 94.0 L Carbon Dioxide 20 L BUN 22 H Creatinine 2.0 H Glucose 123 H POC Glucose 166 H 179 H Lactic Acid Calcium 7.7 L Phosphorus 2.20 L D Magnesium Direct Bilirubin AST ALT Alkaline Phosphatase Lactate Dehydrogenase Troponin T C-Reactive Protein Total Protein Albumin Prealbumin Triglycerides Cholesterol LDL Cholesterol Direct HDL Cholesterol Urine pH Urine WBC (Auto) Urine Creatinine Urine Total Protein Fluid Total Protein Vancomycin Trough Rheumatoid Factor Complement C4 Miscellaneous Test Crossmatch 10/05/16 10/05/16 10/05/16 15:50 18:53 23:12 WBC RBC Hgb Hct MCV MCH MCHC RDW Plt Count Lymph % (Auto) Wilkin % (Auto) Lymph # [place]kin # Baso # Seg Neutrophils % Seg Neuts % (Manual) Lymphocytes % (Manual) Monocytes % (Manual) Eosinophils % (Manual) Basophils % (Manual) Nucleated RBC % Seg Neutrophils # Seg Neutrophils # Man Lymphocytes # (Manual) Monocytes # (Manual) Eosinophils # (Manual) Basophils # (Manual) PT INR Fibrinogen dRVVT Confirm Interp Factor V Activity POC ABG pH POC ABG pCO2 POC ABG pO2 ABG pO2 ABG HCO3 ABG Base Excess ABG Hemoglobin Oxyhemoglobin Sodium Potassium Chloride Carbon Dioxide BUN Creatinine Glucose POC Glucose 150 H 164 H Lactic Acid Calcium Phosphorus Magnesium Direct Bilirubin AST ALT Alkaline Phosphatase Lactate Dehydrogenase Troponin T C-Reactive Protein Total Protein Albumin Prealbumin Triglycerides Cholesterol LDL Cholesterol Direct HDL Cholesterol Urine pH Urine WBC (Auto) Urine Creatinine Urine Total Protein Fluid Total Protein Vancomycin Trough Rheumatoid Factor Complement C4 Miscellaneous Test Crossmatch See Detail 10/06/16 10/06/16 10/06/16 03:50 03:50 04:53 WBC RBC 3.00 L Hgb 8.6 L Hct 25.8 L MCV MCH MCHC RDW 17.9 H Plt Count 65 L Lymph % (Auto) [place]kin % (Auto) Lymph # [place] # Baso # Seg Neutrophils % Seg Neuts % (Manual) 30.0 L Lymphocytes % (Manual) 5.0 L Monocytes % (Manual) Eosinophils % (Manual) Basophils % (Manual) Nucleated RBC % Seg Neutrophils # Seg Neutrophils # Man Lymphocytes # (Manual) 0.4 L Monocytes # (Manual) Eosinophils # (Manual) Basophils # (Manual) PT INR Fibrinogen dRVVT Confirm Interp Factor V Activity POC ABG pH 7.310 L POC ABG pCO2 49.0 H POC ABG pO2 ABG pO2 ABG HCO3 ABG Base Excess ABG Hemoglobin Oxyhemoglobin Sodium 133 L Potassium Chloride 95.9 L Carbon Dioxide BUN 26 H Creatinine 2.0 H Glucose 116 H POC Glucose Lactic Acid Calcium 7.8 L Phosphorus Magnesium Direct Bilirubin AST ALT Alkaline Phosphatase Lactate Dehydrogenase Troponin T C-Reactive Protein Total Protein Albumin Prealbumin Triglycerides Cholesterol LDL Cholesterol Direct HDL Cholesterol Urine pH Urine WBC (Auto) Urine Creatinine Urine Total Protein Fluid Total Protein Vancomycin Trough Rheumatoid Factor Complement C4 Miscellaneous Test Crossmatch 10/06/16 10/06/16 10/06/16 05:23 11:52 18:34 WBC RBC Hgb Hct MCV MCH MCHC RDW Plt Count Lymph % (Auto) [place]kin % (Auto) Lymph # [place] # Baso # Seg Neutrophils % Seg Neuts % (Manual) Lymphocytes % (Manual) Monocytes % (Manual) Eosinophils % (Manual) Basophils % (Manual) Nucleated RBC % Seg Neutrophils # Seg Neutrophils # Man Lymphocytes # (Manual) Monocytes # (Manual) Eosinophils # (Manual) Basophils # (Manual) PT INR Fibrinogen dRVVT Confirm Interp Factor V Activity POC ABG pH POC ABG pCO2 POC ABG pO2 ABG pO2 ABG HCO3 ABG Base Excess ABG Hemoglobin Oxyhemoglobin Sodium Potassium Chloride Carbon Dioxide BUN Creatinine Glucose POC Glucose 126 H 116 H 129 H Lactic Acid Calcium Phosphorus Magnesium Direct Bilirubin AST ALT Alkaline Phosphatase Lactate Dehydrogenase Troponin T C-Reactive Protein Total Protein Albumin Prealbumin Triglycerides Cholesterol LDL Cholesterol Direct HDL Cholesterol Urine pH Urine WBC (Auto) Urine Creatinine Urine Total Protein Fluid Total Protein Vancomycin Trough Rheumatoid Factor Complement C4 Miscellaneous Test Crossmatch 10/07/16 10/07/16 10/07/16 03:45 05:00 10:00 WBC 17.0 H RBC 2.68 L Hgb 7.3 L Hct 25.3 L MCV MCH 27 L MCHC 29 L RDW 19.6 H Plt Count 74 L Lymph % (Auto) [place]kin % (Auto) Lymph # [place] # Baso # Seg Neutrophils % Seg Neuts % (Manual) Lymphocytes % (Manual) 12.0 L Monocytes % (Manual) Eosinophils % (Manual) Basophils % (Manual) Nucleated RBC % 4.0 H Seg Neutrophils # Seg Neutrophils # Man 10.7 H Lymphocytes # (Manual) Monocytes # (Manual) Eosinophils # (Manual) Basophils # (Manual) PT INR Fibrinogen dRVVT Confirm Interp Factor V Activity POC ABG pH POC ABG pCO2 POC ABG pO2 ABG pO2 ABG HCO3 ABG Base Excess ABG Hemoglobin Oxyhemoglobin Sodium 130 L Potassium 3.2 L Chloride 93.9 L Carbon Dioxide 20 L BUN 44 H Creatinine 2.7 H Glucose 129 H POC Glucose Lactic Acid Calcium 7.4 L Phosphorus Magnesium Direct Bilirubin AST ALT 6 L Alkaline Phosphatase 195 H Lactate Dehydrogenase Troponin T C-Reactive Protein Total Protein 4.9 L Albumin 1.0 L Prealbumin Triglycerides Cholesterol LDL Cholesterol Direct HDL Cholesterol Urine pH Urine WBC (Auto) Urine Creatinine Urine Total Protein Fluid Total Protein Vancomycin Trough Rheumatoid Factor Complement C4 Miscellaneous Test Flexitest 1 H Crossmatch 10/07/16 10/07/16 10/07/16 10:00 11:24 18:10 WBC RBC Hgb Hct MCV MCH MCHC RDW Plt Count Lymph % (Auto) [place] % (Auto) Lymph # [place] # Baso # Seg Neutrophils % Seg Neuts % (Manual) Lymphocytes % (Manual) Monocytes % (Manual) Eosinophils % (Manual) Basophils % (Manual) Nucleated RBC % Seg Neutrophils # Seg Neutrophils # Man Lymphocytes # (Manual) Monocytes # (Manual) Eosinophils # (Manual) Basophils # (Manual) PT INR Fibrinogen dRVVT Confirm Interp Factor V Activity POC ABG pH POC ABG pCO2 POC ABG pO2 ABG pO2 ABG HCO3 ABG Base Excess ABG Hemoglobin Oxyhemoglobin Sodium Potassium Chloride Carbon Dioxide BUN Creatinine Glucose POC Glucose 116 H 130 H Lactic Acid Calcium Phosphorus Magnesium Direct Bilirubin AST ALT Alkaline Phosphatase Lactate Dehydrogenase Troponin T C-Reactive Protein 19.40 H Total Protein Albumin Prealbumin Triglycerides Cholesterol LDL Cholesterol Direct HDL Cholesterol Urine pH Urine WBC (Auto) Urine Creatinine Urine Total Protein Fluid Total Protein Vancomycin Trough Rheumatoid Factor Complement C4 Miscellaneous Test Crossmatch 10/07/16 10/08/16 10/08/16 18:30 00:00 04:00 WBC RBC Hgb Hct MCV MCH MCHC RDW Plt Count Lymph % (Auto) [place]kin % (Auto) Lymph # [place] # Baso # Seg Neutrophils % Seg Neuts % (Manual) Lymphocytes % (Manual) Monocytes % (Manual) Eosinophils % (Manual) Basophils % (Manual) Nucleated RBC % Seg Neutrophils # Seg Neutrophils # Man Lymphocytes # (Manual) Monocytes # (Manual) Eosinophils # (Manual) Basophils # (Manual) PT INR Fibrinogen dRVVT Confirm Interp Factor V Activity POC ABG pH POC ABG pCO2 POC ABG pO2 ABG pO2 ABG HCO3 ABG Base Excess ABG Hemoglobin Oxyhemoglobin Sodium 132 L Potassium 3.3 L Chloride 93.6 L Carbon Dioxide 17 L BUN 59 H Creatinine 2.7 H Glucose 121 H POC Glucose 122 H Lactic Acid Calcium 7.6 L Phosphorus Magnesium Direct Bilirubin AST ALT Alkaline Phosphatase Lactate Dehydrogenase Troponin T C-Reactive Protein Total Protein Albumin Prealbumin Triglycerides Cholesterol LDL Cholesterol Direct HDL Cholesterol Urine pH Urine WBC (Auto) > 182.0 H Urine Creatinine Urine Total Protein Fluid Total Protein Vancomycin Trough Rheumatoid Factor Complement C4 Miscellaneous Test Crossmatch 10/08/16 10/08/16 10/08/16 04:30 05:30 11:51 WBC RBC 5.15 H Hgb 14.4 H D Hct 44.5 H D MCV MCH MCHC RDW 19.5 H Plt Count 56 L Lymph % (Auto) [place] % (Auto) Lymph # [place] # Baso # Seg Neutrophils % Seg Neuts % (Manual) 24.0 L Lymphocytes % (Manual) 8.0 L Monocytes % (Manual) Eosinophils % (Manual) Basophils % (Manual) Nucleated RBC % 9.0 H Seg Neutrophils # Seg Neutrophils # Man Lymphocytes # (Manual) 0.7 L Monocytes # (Manual) Eosinophils # (Manual) Basophils # (Manual) PT INR Fibrinogen dRVVT Confirm Interp Factor V Activity POC ABG pH POC ABG pCO2 POC ABG pO2 ABG pO2 ABG HCO3 ABG Base Excess ABG Hemoglobin Oxyhemoglobin Sodium Potassium Chloride Carbon Dioxide BUN Creatinine Glucose POC Glucose 125 H 150 H Lactic Acid Calcium Phosphorus Magnesium Direct Bilirubin AST ALT Alkaline Phosphatase Lactate Dehydrogenase Troponin T C-Reactive Protein Total Protein Albumin Prealbumin Triglycerides Cholesterol LDL Cholesterol Direct HDL Cholesterol Urine pH Urine WBC (Auto) Urine Creatinine Urine Total Protein Fluid Total Protein Vancomycin Trough Rheumatoid Factor Complement C4 Miscellaneous Test Crossmatch 10/08/16 10/08/16 10/08/16 12:49 17:07 19:30 WBC RBC Hgb 7.1 L D Hct 22.4 L D MCV MCH MCHC RDW Plt Count Lymph % (Auto) Wilkin % (Auto) Lymph # [place] # Baso # Seg Neutrophils % Seg Neuts % (Manual) Lymphocytes % (Manual) Monocytes % (Manual) Eosinophils % (Manual) Basophils % (Manual) Nucleated RBC % Seg Neutrophils # Seg Neutrophils # Man Lymphocytes # (Manual) Monocytes # (Manual) Eosinophils # (Manual) Basophils # (Manual) PT INR Fibrinogen dRVVT Confirm Interp Factor V Activity POC ABG pH POC ABG pCO2 28.2 L POC ABG pO2 111 H ABG pO2 ABG HCO3 ABG Base Excess ABG Hemoglobin Oxyhemoglobin Sodium Potassium Chloride Carbon Dioxide BUN Creatinine Glucose POC Glucose 145 H Lactic Acid Calcium Phosphorus Magnesium Direct Bilirubin AST ALT Alkaline Phosphatase Lactate Dehydrogenase Troponin T C-Reactive Protein Total Protein Albumin Prealbumin Triglycerides Cholesterol LDL Cholesterol Direct HDL Cholesterol Urine pH Urine WBC (Auto) Urine Creatinine Urine Total Protein Fluid Total Protein Vancomycin Trough Rheumatoid Factor Complement C4 Miscellaneous Test Crossmatch 10/08/16 10/09/16 10/09/16 19:30 03:45 03:45 WBC 12.6 H RBC 2.36 L Hgb 6.7 L Hct 21.1 L MCV MCH MCHC RDW 19.5 H Plt Count 75 L Lymph % (Auto) [place] % (Auto) Lymph # [place] # Baso # Seg Neutrophils % Seg Neuts % (Manual) Lymphocytes % (Manual) Monocytes % (Manual) 10.0 H Eosinophils % (Manual) Basophils % (Manual) Nucleated RBC % 3.0 H Seg Neutrophils # Seg Neutrophils # Man Lymphocytes # (Manual) Monocytes # (Manual) 1.3 H Eosinophils # (Manual) Basophils # (Manual) PT 18.0 H INR 1.41 H Fibrinogen dRVVT Confirm Interp Factor V Activity POC ABG pH POC ABG pCO2 POC ABG pO2 ABG pO2 ABG HCO3 ABG Base Excess ABG Hemoglobin Oxyhemoglobin Sodium 135 L Potassium Chloride Carbon Dioxide 17 L BUN 81 H Creatinine 3.2 H Glucose 109 H POC Glucose Lactic Acid Calcium 7.4 L Phosphorus 4.60 H D Magnesium Direct Bilirubin AST ALT Alkaline Phosphatase Lactate Dehydrogenase Troponin T C-Reactive Protein Total Protein Albumin Prealbumin Triglycerides Cholesterol LDL Cholesterol Direct HDL Cholesterol Urine pH Urine WBC (Auto) Urine Creatinine Urine Total Protein Fluid Total Protein Vancomycin Trough Rheumatoid Factor Complement C4 Miscellaneous Test Crossmatch 10/09/16 10/09/16 10/09/16 03:45 05:14 07:20 WBC RBC Hgb Hct MCV MCH MCHC RDW Plt Count Lymph % (Auto) Wilkin % (Auto) Lymph # [place] # Baso # Seg Neutrophils % Seg Neuts % (Manual) Lymphocytes % (Manual) Monocytes % (Manual) Eosinophils % (Manual) Basophils % (Manual) Nucleated RBC % Seg Neutrophils # Seg Neutrophils # Man Lymphocytes # (Manual) Monocytes # (Manual) Eosinophils # (Manual) Basophils # (Manual) PT 19.0 H INR 1.51 H Fibrinogen dRVVT Confirm Interp Factor V Activity POC ABG pH POC ABG pCO2 POC ABG pO2 ABG pO2 ABG HCO3 ABG Base Excess ABG Hemoglobin Oxyhemoglobin Sodium Potassium Chloride Carbon Dioxide BUN Creatinine Glucose POC Glucose 151 H Lactic Acid Calcium Phosphorus Magnesium Direct Bilirubin AST ALT Alkaline Phosphatase Lactate Dehydrogenase Troponin T C-Reactive Protein Total Protein Albumin Prealbumin Triglycerides Cholesterol LDL Cholesterol Direct HDL Cholesterol Urine pH Urine WBC (Auto) Urine Creatinine Urine Total Protein Fluid Total Protein Vancomycin Trough Rheumatoid Factor Complement C4 Miscellaneous Test Crossmatch See Detail 10/09/16 10/09/16 10/09/16 11:46 16:20 16:43 WBC RBC Hgb 7.2 L Hct 22.2 L MCV MCH MCHC RDW Plt Count Lymph % (Auto) [place]kin % (Auto) Lymph # [place] # Baso # Seg Neutrophils % Seg Neuts % (Manual) Lymphocytes % (Manual) Monocytes % (Manual) Eosinophils % (Manual) Basophils % (Manual) Nucleated RBC % Seg Neutrophils # Seg Neutrophils # Man Lymphocytes # (Manual) Monocytes # (Manual) Eosinophils # (Manual) Basophils # (Manual) PT INR Fibrinogen dRVVT Confirm Interp Factor V Activity POC ABG pH POC ABG pCO2 POC ABG pO2 ABG pO2 ABG HCO3 ABG Base Excess ABG Hemoglobin Oxyhemoglobin Sodium Potassium Chloride Carbon Dioxide BUN Creatinine Glucose POC Glucose 133 H 141 H Lactic Acid Calcium Phosphorus Magnesium Direct Bilirubin AST ALT Alkaline Phosphatase Lactate Dehydrogenase Troponin T C-Reactive Protein Total Protein Albumin Prealbumin Triglycerides Cholesterol LDL Cholesterol Direct HDL Cholesterol Urine pH Urine WBC (Auto) Urine Creatinine Urine Total Protein Fluid Total Protein Vancomycin Trough Rheumatoid Factor Complement C4 Miscellaneous Test Crossmatch 10/10/16 10/10/16 10/10/16 05:00 05:00 11:19 WBC 18.5 H RBC 2.19 L Hgb 6.4 L Hct 19.6 L* MCV MCH MCHC RDW 19.3 H Plt Count 93 L Lymph % (Auto) [place] % (Auto) Lymph # [place] # Baso # Seg Neutrophils % Seg Neuts % (Manual) Lymphocytes % (Manual) 10.0 L Monocytes % (Manual) Eosinophils % (Manual) Basophils % (Manual) Nucleated RBC % 4.0 H Seg Neutrophils # Seg Neutrophils # Man 11.3 H Lymphocytes # (Manual) Monocytes # (Manual) Eosinophils # (Manual) Basophils # (Manual) PT INR Fibrinogen dRVVT Confirm Interp Factor V Activity POC ABG pH POC ABG pCO2 POC ABG pO2 ABG pO2 ABG HCO3 ABG Base Excess ABG Hemoglobin Oxyhemoglobin Sodium Potassium 5.7 H D Chloride Carbon Dioxide 16 L BUN 94 H Creatinine 3.1 H Glucose 131 H POC Glucose 153 H Lactic Acid Calcium 8.2 L Phosphorus 5.10 H Magnesium 2.40 H Direct Bilirubin 0.3 H AST ALT < 5 L Alkaline Phosphatase 319 H Lactate Dehydrogenase Troponin T C-Reactive Protein Total Protein 5.1 L Albumin 1.0 L Prealbumin Triglycerides Cholesterol LDL Cholesterol Direct HDL Cholesterol Urine pH Urine WBC (Auto) Urine Creatinine Urine Total Protein Fluid Total Protein Vancomycin Trough Rheumatoid Factor Complement C4 Miscellaneous Test Crossmatch 10/10/16 10/10/16 10/11/16 17:50 23:30 04:15 WBC RBC Hgb Hct MCV MCH MCHC RDW Plt Count Lymph % (Auto) [place] % (Auto) Lymph # [place] # Baso # Seg Neutrophils % Seg Neuts % (Manual) Lymphocytes % (Manual) Monocytes % (Manual) Eosinophils % (Manual) Basophils % (Manual) Nucleated RBC % Seg Neutrophils # Seg Neutrophils # Man Lymphocytes # (Manual) Monocytes # (Manual) Eosinophils # (Manual) Basophils # (Manual) PT INR Fibrinogen dRVVT Confirm Interp Factor V Activity POC ABG pH POC ABG pCO2 POC ABG pO2 ABG pO2 ABG HCO3 ABG Base Excess ABG Hemoglobin Oxyhemoglobin Sodium Potassium Chloride 96.4 L Carbon Dioxide 21 L BUN 57 H Creatinine 2.1 H Glucose 151 H POC Glucose 146 H 141 H Lactic Acid Calcium 8.3 L Phosphorus Magnesium Direct Bilirubin AST ALT Alkaline Phosphatase Lactate Dehydrogenase Troponin T C-Reactive Protein Total Protein Albumin Prealbumin Triglycerides Cholesterol LDL Cholesterol Direct HDL Cholesterol Urine pH Urine WBC (Auto) Urine Creatinine Urine Total Protein Fluid Total Protein Vancomycin Trough Rheumatoid Factor Complement C4 Miscellaneous Test Crossmatch 10/11/16 10/11/16 10/11/16 04:15 04:15 05:30 WBC 28.3 H RBC 3.12 L Hgb 9.3 L Hct 28.7 L D MCV MCH MCHC RDW 17.7 H Plt Count 128 L Lymph % (Auto) [place] % (Auto) Lymph # [place] # Baso # Seg Neutrophils % Seg Neuts % (Manual) Lymphocytes % (Manual) Monocytes % (Manual) Eosinophils % (Manual) Basophils % (Manual) Nucleated RBC % Seg Neutrophils # Seg Neutrophils # Man Lymphocytes # (Manual) Monocytes # (Manual) Eosinophils # (Manual) Basophils # (Manual) PT INR Fibrinogen dRVVT Confirm Interp Factor V Activity POC ABG pH POC ABG pCO2 POC ABG pO2 ABG pO2 ABG HCO3 ABG Base Excess ABG Hemoglobin Oxyhemoglobin Sodium Potassium Chloride Carbon Dioxide BUN Creatinine Glucose POC Glucose 167 H Lactic Acid Calcium Phosphorus Magnesium Direct Bilirubin AST ALT Alkaline Phosphatase Lactate Dehydrogenase Troponin T C-Reactive Protein 15.80 H Total Protein Albumin Prealbumin Triglycerides Cholesterol LDL Cholesterol Direct HDL Cholesterol Urine pH Urine WBC (Auto) Urine Creatinine Urine Total Protein Fluid Total Protein Vancomycin Trough Rheumatoid Factor Complement C4 Miscellaneous Test Crossmatch 10/11/16 10/11/16 10/11/16 11:40 15:49 23:57 WBC RBC Hgb Hct MCV MCH MCHC RDW Plt Count Lymph % (Auto) [place]kin % (Auto) Lymph # [place] # Baso # Seg Neutrophils % Seg Neuts % (Manual) Lymphocytes % (Manual) Monocytes % (Manual) Eosinophils % (Manual) Basophils % (Manual) Nucleated RBC % Seg Neutrophils # Seg Neutrophils # Man Lymphocytes # (Manual) Monocytes # (Manual) Eosinophils # (Manual) Basophils # (Manual) PT INR Fibrinogen dRVVT Confirm Interp Factor V Activity POC ABG pH POC ABG pCO2 POC ABG pO2 ABG pO2 ABG HCO3 ABG Base Excess ABG Hemoglobin Oxyhemoglobin Sodium Potassium Chloride Carbon Dioxide BUN Creatinine Glucose POC Glucose 139 H 168 H 161 H Lactic Acid Calcium Phosphorus Magnesium Direct Bilirubin AST ALT Alkaline Phosphatase Lactate Dehydrogenase Troponin T C-Reactive Protein Total Protein Albumin Prealbumin Triglycerides Cholesterol LDL Cholesterol Direct HDL Cholesterol Urine pH Urine WBC (Auto) Urine Creatinine Urine Total Protein Fluid Total Protein Vancomycin Trough Rheumatoid Factor Complement C4 Miscellaneous Test Crossmatch 10/12/16 10/12/16 10/12/16 04:40 04:40 05:44 WBC 22.5 H RBC 2.88 L Hgb 8.8 L Hct 26.8 L MCV MCH MCHC RDW 17.8 H Plt Count Lymph % (Auto) [place] % (Auto) Lymph # [place] # Baso # Seg Neutrophils % Seg Neuts % (Manual) Lymphocytes % (Manual) Monocytes % (Manual) Eosinophils % (Manual) Basophils % (Manual) Nucleated RBC % Seg Neutrophils # Seg Neutrophils # Man Lymphocytes # (Manual) Monocytes # (Manual) Eosinophils # (Manual) Basophils # (Manual) PT INR Fibrinogen dRVVT Confirm Interp Factor V Activity POC ABG pH POC ABG pCO2 POC ABG pO2 ABG pO2 ABG HCO3 ABG Base Excess ABG Hemoglobin Oxyhemoglobin Sodium 134 L Potassium Chloride 93.0 L Carbon Dioxide BUN 74 H Creatinine 2.5 H Glucose 137 H POC Glucose 158 H Lactic Acid Calcium 8.2 L Phosphorus Magnesium Direct Bilirubin AST ALT Alkaline Phosphatase Lactate Dehydrogenase Troponin T C-Reactive Protein Total Protein Albumin Prealbumin Triglycerides Cholesterol LDL Cholesterol Direct HDL Cholesterol Urine pH Urine WBC (Auto) Urine Creatinine Urine Total Protein Fluid Total Protein Vancomycin Trough Rheumatoid Factor Complement C4 Miscellaneous Test Crossmatch 10/12/16 10/12/16 10/12/16 12:27 18:18 23:46 WBC RBC Hgb Hct MCV MCH MCHC RDW Plt Count Lymph % (Auto) [place]kin % (Auto) Lymph # [place] # Baso # Seg Neutrophils % Seg Neuts % (Manual) Lymphocytes % (Manual) Monocytes % (Manual) Eosinophils % (Manual) Basophils % (Manual) Nucleated RBC % Seg Neutrophils # Seg Neutrophils # Man Lymphocytes # (Manual) Monocytes # (Manual) Eosinophils # (Manual) Basophils # (Manual) PT INR Fibrinogen dRVVT Confirm Interp Factor V Activity POC ABG pH POC ABG pCO2 POC ABG pO2 ABG pO2 ABG HCO3 ABG Base Excess ABG Hemoglobin Oxyhemoglobin Sodium Potassium Chloride Carbon Dioxide BUN Creatinine Glucose POC Glucose 153 H 140 H 150 H Lactic Acid Calcium Phosphorus Magnesium Direct Bilirubin AST ALT Alkaline Phosphatase Lactate Dehydrogenase Troponin T C-Reactive Protein Total Protein Albumin Prealbumin Triglycerides Cholesterol LDL Cholesterol Direct HDL Cholesterol Urine pH Urine WBC (Auto) Urine Creatinine Urine Total Protein Fluid Total Protein Vancomycin Trough Rheumatoid Factor Complement C4 Miscellaneous Test Crossmatch 10/13/16 10/13/16 10/13/16 06:22 09:20 12:29 WBC RBC Hgb Hct MCV MCH MCHC RDW Plt Count Lymph % (Auto) [place] % (Auto) Lymph # [place] # Baso # Seg Neutrophils % Seg Neuts % (Manual) Lymphocytes % (Manual) Monocytes % (Manual) Eosinophils % (Manual) Basophils % (Manual) Nucleated RBC % Seg Neutrophils # Seg Neutrophils # Man Lymphocytes # (Manual) Monocytes # (Manual) Eosinophils # (Manual) Basophils # (Manual) PT INR Fibrinogen dRVVT Confirm Interp Factor V Activity POC ABG pH POC ABG pCO2 POC ABG pO2 ABG pO2 ABG HCO3 ABG Base Excess ABG Hemoglobin Oxyhemoglobin Sodium Potassium Chloride Carbon Dioxide BUN Creatinine Glucose POC Glucose 165 H 193 H Lactic Acid Calcium Phosphorus Magnesium Direct Bilirubin AST ALT Alkaline Phosphatase Lactate Dehydrogenase Troponin T C-Reactive Protein Total Protein Albumin Prealbumin Triglycerides Cholesterol LDL Cholesterol Direct HDL Cholesterol Urine pH Urine WBC (Auto) Urine Creatinine Urine Total Protein Fluid Total Protein Vancomycin Trough Rheumatoid Factor Complement C4 Miscellaneous Test Flexitest 1 H Crossmatch 10/13/16 10/13/16 10/13/16 18:09 Unknown Unknown WBC 23.4 H RBC 2.83 L Hgb 8.7 L Hct 26.1 L MCV MCH MCHC RDW 18.1 H Plt Count Lymph % (Auto) [place] % (Auto) Lymph # [place]kin # Baso # Seg Neutrophils % Seg Neuts % (Manual) Lymphocytes % (Manual) Monocytes % (Manual) Eosinophils % (Manual) Basophils % (Manual) Nucleated RBC % Seg Neutrophils # Seg Neutrophils # Man Lymphocytes # (Manual) Monocytes # (Manual) Eosinophils # (Manual) Basophils # (Manual) PT INR Fibrinogen dRVVT Confirm Interp Factor V Activity POC ABG pH POC ABG pCO2 POC ABG pO2 ABG pO2 ABG HCO3 ABG Base Excess ABG Hemoglobin Oxyhemoglobin Sodium Potassium Chloride 95.8 L Carbon Dioxide BUN 82 H Creatinine 2.6 H Glucose 152 H POC Glucose 166 H Lactic Acid Calcium Phosphorus Magnesium Direct Bilirubin AST ALT Alkaline Phosphatase Lactate Dehydrogenase Troponin T C-Reactive Protein Total Protein Albumin Prealbumin Triglycerides Cholesterol LDL Cholesterol Direct HDL Cholesterol Urine pH Urine WBC (Auto) Urine Creatinine Urine Total Protein Fluid Total Protein Vancomycin Trough Rheumatoid Factor Complement C4 Miscellaneous Test Crossmatch 10/14/16 10/14/16 10/14/16 05:38 06:35 08:10 WBC 20.7 H RBC 2.81 L Hgb 8.4 L Hct 27.2 L MCV MCH MCHC RDW 19.4 H Plt Count Lymph % (Auto) [place] % (Auto) Lymph # [place]kin # Baso # Seg Neutrophils % Seg Neuts % (Manual) Lymphocytes % (Manual) Monocytes % (Manual) Eosinophils % (Manual) Basophils % (Manual) Nucleated RBC % Seg Neutrophils # Seg Neutrophils # Man Lymphocytes # (Manual) Monocytes # (Manual) Eosinophils # (Manual) Basophils # (Manual) PT INR Fibrinogen dRVVT Confirm Interp Factor V Activity POC ABG pH POC ABG pCO2 POC ABG pO2 ABG pO2 ABG HCO3 ABG Base Excess ABG Hemoglobin Oxyhemoglobin Sodium Potassium Chloride Carbon Dioxide BUN 58 H Creatinine 1.9 H Glucose 169 H POC Glucose 195 H Lactic Acid Calcium Phosphorus Magnesium Direct Bilirubin AST ALT Alkaline Phosphatase Lactate Dehydrogenase Troponin T C-Reactive Protein Total Protein Albumin Prealbumin Triglycerides Cholesterol LDL Cholesterol Direct HDL Cholesterol Urine pH Urine WBC (Auto) Urine Creatinine Urine Total Protein Fluid Total Protein Vancomycin Trough Rheumatoid Factor Complement C4 Miscellaneous Test Crossmatch 10/14/16 10/14/16 10/14/16 11:44 17:13 23:28 WBC RBC Hgb Hct MCV MCH MCHC RDW Plt Count Lymph % (Auto) [place] % (Auto) Lymph # [place] # Baso # Seg Neutrophils % Seg Neuts % (Manual) Lymphocytes % (Manual) Monocytes % (Manual) Eosinophils % (Manual) Basophils % (Manual) Nucleated RBC % Seg Neutrophils # Seg Neutrophils # Man Lymphocytes # (Manual) Monocytes # (Manual) Eosinophils # (Manual) Basophils # (Manual) PT INR Fibrinogen dRVVT Confirm Interp Factor V Activity POC ABG pH POC ABG pCO2 POC ABG pO2 ABG pO2 ABG HCO3 ABG Base Excess ABG Hemoglobin Oxyhemoglobin Sodium Potassium Chloride Carbon Dioxide BUN Creatinine Glucose POC Glucose 174 H 121 H 151 H Lactic Acid Calcium Phosphorus Magnesium Direct Bilirubin AST ALT Alkaline Phosphatase Lactate Dehydrogenase Troponin T C-Reactive Protein Total Protein Albumin Prealbumin Triglycerides Cholesterol LDL Cholesterol Direct HDL Cholesterol Urine pH Urine WBC (Auto) Urine Creatinine Urine Total Protein Fluid Total Protein Vancomycin Trough Rheumatoid Factor Complement C4 Miscellaneous Test Crossmatch 10/15/16 10/15/16 10/15/16 05:06 12:26 17:48 WBC RBC Hgb Hct MCV MCH MCHC RDW Plt Count Lymph % (Auto) [place] % (Auto) Lymph # [place] # Baso # Seg Neutrophils % Seg Neuts % (Manual) Lymphocytes % (Manual) Monocytes % (Manual) Eosinophils % (Manual) Basophils % (Manual) Nucleated RBC % Seg Neutrophils # Seg Neutrophils # Man Lymphocytes # (Manual) Monocytes # (Manual) Eosinophils # (Manual) Basophils # (Manual) PT INR Fibrinogen dRVVT Confirm Interp Factor V Activity POC ABG pH POC ABG pCO2 POC ABG pO2 ABG pO2 ABG HCO3 ABG Base Excess ABG Hemoglobin Oxyhemoglobin Sodium Potassium Chloride Carbon Dioxide BUN Creatinine Glucose POC Glucose 151 H 149 H 153 H Lactic Acid Calcium Phosphorus Magnesium Direct Bilirubin AST ALT Alkaline Phosphatase Lactate Dehydrogenase Troponin T C-Reactive Protein Total Protein Albumin Prealbumin Triglycerides Cholesterol LDL Cholesterol Direct HDL Cholesterol Urine pH Urine WBC (Auto) Urine Creatinine Urine Total Protein Fluid Total Protein Vancomycin Trough Rheumatoid Factor Complement C4 Miscellaneous Test Crossmatch 10/15/16 10/15/16 10/16/16 Unknown Unknown 00:02 WBC 23.4 H RBC 2.78 L Hgb 8.5 L Hct 25.7 L MCV MCH MCHC RDW 18.7 H Plt Count Lymph % (Auto) [place] % (Auto) Lymph # [place] # Baso # Seg Neutrophils % Seg Neuts % (Manual) Lymphocytes % (Manual) Monocytes % (Manual) Eosinophils % (Manual) Basophils % (Manual) Nucleated RBC % Seg Neutrophils # Seg Neutrophils # Man Lymphocytes # (Manual) Monocytes # (Manual) Eosinophils # (Manual) Basophils # (Manual) PT INR Fibrinogen dRVVT Confirm Interp Factor V Activity POC ABG pH POC ABG pCO2 POC ABG pO2 ABG pO2 ABG HCO3 ABG Base Excess ABG Hemoglobin Oxyhemoglobin Sodium Potassium Chloride Carbon Dioxide BUN 73 H Creatinine 2.3 H Glucose 120 H POC Glucose 137 H Lactic Acid Calcium Phosphorus Magnesium Direct Bilirubin AST ALT Alkaline Phosphatase Lactate Dehydrogenase Troponin T C-Reactive Protein Total Protein Albumin Prealbumin Triglycerides Cholesterol LDL Cholesterol Direct HDL Cholesterol Urine pH Urine WBC (Auto) Urine Creatinine Urine Total Protein Fluid Total Protein Vancomycin Trough Rheumatoid Factor Complement C4 Miscellaneous Test Crossmatch 10/16/16 10/16/16 10/16/16 05:44 06:25 06:25 WBC 22.5 H RBC 2.76 L Hgb 8.3 L Hct 25.2 L MCV MCH MCHC RDW 18.3 H Plt Count Lymph % (Auto) [place] % (Auto) Lymph # [place] # Baso # Seg Neutrophils % Seg Neuts % (Manual) Lymphocytes % (Manual) Monocytes % (Manual) Eosinophils % (Manual) Basophils % (Manual) Nucleated RBC % Seg Neutrophils # Seg Neutrophils # Man Lymphocytes # (Manual) Monocytes # (Manual) Eosinophils # (Manual) Basophils # (Manual) PT INR Fibrinogen dRVVT Confirm Interp Factor V Activity POC ABG pH POC ABG pCO2 POC ABG pO2 ABG pO2 ABG HCO3 ABG Base Excess ABG Hemoglobin Oxyhemoglobin Sodium Potassium Chloride Carbon Dioxide BUN 92 H Creatinine 3.0 H Glucose 138 H POC Glucose 110 H Lactic Acid Calcium Phosphorus Magnesium Direct Bilirubin AST ALT Alkaline Phosphatase Lactate Dehydrogenase Troponin T C-Reactive Protein Total Protein Albumin Prealbumin Triglycerides Cholesterol LDL Cholesterol Direct HDL Cholesterol Urine pH Urine WBC (Auto) Urine Creatinine Urine Total Protein Fluid Total Protein Vancomycin Trough Rheumatoid Factor Complement C4 Miscellaneous Test Crossmatch 10/16/16 10/16/16 10/16/16 11:27 11:48 17:36 WBC RBC Hgb Hct MCV MCH MCHC RDW Plt Count Lymph % (Auto) [place] % (Auto) Lymph # [place] # Baso # Seg Neutrophils % Seg Neuts % (Manual) Lymphocytes % (Manual) Monocytes % (Manual) Eosinophils % (Manual) Basophils % (Manual) Nucleated RBC % Seg Neutrophils # Seg Neutrophils # Man Lymphocytes # (Manual) Monocytes # (Manual) Eosinophils # (Manual) Basophils # (Manual) PT INR Fibrinogen dRVVT Confirm Interp Factor V Activity POC ABG pH 7.582 H POC ABG pCO2 27.4 L POC ABG pO2 110 H ABG pO2 ABG HCO3 ABG Base Excess ABG Hemoglobin Oxyhemoglobin Sodium Potassium Chloride Carbon Dioxide BUN Creatinine Glucose POC Glucose 121 H 133 H Lactic Acid Calcium Phosphorus Magnesium Direct Bilirubin AST ALT Alkaline Phosphatase Lactate Dehydrogenase Troponin T C-Reactive Protein Total Protein Albumin Prealbumin Triglycerides Cholesterol LDL Cholesterol Direct HDL Cholesterol Urine pH Urine WBC (Auto) Urine Creatinine Urine Total Protein Fluid Total Protein Vancomycin Trough Rheumatoid Factor Complement C4 Miscellaneous Test Crossmatch 10/16/16 10/17/16 10/17/16 20:48 04:24 04:24 WBC 21.4 H RBC 2.72 L Hgb 8.0 L Hct 25.2 L MCV MCH MCHC RDW 18.0 H Plt Count Lymph % (Auto) [place] % (Auto) Lymph # [place] # Baso # Seg Neutrophils % Seg Neuts % (Manual) Lymphocytes % (Manual) Monocytes % (Manual) Eosinophils % (Manual) Basophils % (Manual) Nucleated RBC % Seg Neutrophils # Seg Neutrophils # Man Lymphocytes # (Manual) Monocytes # (Manual) Eosinophils # (Manual) Basophils # (Manual) PT INR Fibrinogen dRVVT Confirm Interp Factor V Activity POC ABG pH 7.561 H POC ABG pCO2 24.4 L POC ABG pO2 77 L ABG pO2 ABG HCO3 ABG Base Excess ABG Hemoglobin Oxyhemoglobin Sodium 148 H Potassium Chloride Carbon Dioxide BUN 104 H Creatinine 3.0 H Glucose 149 H POC Glucose Lactic Acid Calcium Phosphorus Magnesium Direct Bilirubin AST ALT Alkaline Phosphatase 138 H Lactate Dehydrogenase Troponin T C-Reactive Protein Total Protein 6.2 L Albumin 1.5 L Prealbumin Triglycerides Cholesterol LDL Cholesterol Direct HDL Cholesterol Urine pH Urine WBC (Auto) Urine Creatinine Urine Total Protein Fluid Total Protein Vancomycin Trough Rheumatoid Factor Complement C4 Miscellaneous Test Crossmatch 10/17/16 10/17/16 10/17/16 06:02 12:17 17:14 WBC RBC Hgb Hct MCV MCH MCHC RDW Plt Count Lymph % (Auto) [place] % (Auto) Lymph # [place] # Baso # Seg Neutrophils % Seg Neuts % (Manual) Lymphocytes % (Manual) Monocytes % (Manual) Eosinophils % (Manual) Basophils % (Manual) Nucleated RBC % Seg Neutrophils # Seg Neutrophils # Man Lymphocytes # (Manual) Monocytes # (Manual) Eosinophils # (Manual) Basophils # (Manual) PT INR Fibrinogen dRVVT Confirm Interp Factor V Activity POC ABG pH POC ABG pCO2 POC ABG pO2 ABG pO2 ABG HCO3 ABG Base Excess ABG Hemoglobin Oxyhemoglobin Sodium Potassium Chloride Carbon Dioxide BUN Creatinine Glucose POC Glucose 170 H 167 H 126 H Lactic Acid Calcium Phosphorus Magnesium Direct Bilirubin AST ALT Alkaline Phosphatase Lactate Dehydrogenase Troponin T C-Reactive Protein Total Protein Albumin Prealbumin Triglycerides Cholesterol LDL Cholesterol Direct HDL Cholesterol Urine pH Urine WBC (Auto) Urine Creatinine Urine Total Protein Fluid Total Protein Vancomycin Trough Rheumatoid Factor Complement C4 Miscellaneous Test Crossmatch 10/17/16 10/18/16 10/18/16 23:17 04:00 04:00 WBC 20.7 H RBC 2.47 L Hgb 7.4 L Hct 22.9 L MCV MCH MCHC RDW 17.5 H Plt Count Lymph % (Auto) [place] % (Auto) Lymph # [place] # Baso # Seg Neutrophils % Seg Neuts % (Manual) Lymphocytes % (Manual) Monocytes % (Manual) Eosinophils % (Manual) Basophils % (Manual) Nucleated RBC % Seg Neutrophils # Seg Neutrophils # Man Lymphocytes # (Manual) Monocytes # (Manual) Eosinophils # (Manual) Basophils # (Manual) PT INR Fibrinogen dRVVT Confirm Interp Factor V Activity POC ABG pH POC ABG pCO2 POC ABG pO2 ABG pO2 ABG HCO3 ABG Base Excess ABG Hemoglobin Oxyhemoglobin Sodium 149 H Potassium Chloride 107.9 H Carbon Dioxide 20 L BUN 117 H Creatinine 3.2 H Glucose 119 H POC Glucose 121 H Lactic Acid Calcium Phosphorus Magnesium Direct Bilirubin AST ALT Alkaline Phosphatase Lactate Dehydrogenase Troponin T C-Reactive Protein Total Protein Albumin Prealbumin Triglycerides Cholesterol LDL Cholesterol Direct HDL Cholesterol Urine pH Urine WBC (Auto) Urine Creatinine Urine Total Protein Fluid Total Protein Vancomycin Trough Rheumatoid Factor Complement C4 Miscellaneous Test Crossmatch 10/18/16 10/18/16 10/18/16 05:23 10:46 17:30 WBC RBC Hgb Hct MCV MCH MCHC RDW Plt Count Lymph % (Auto) [place] % (Auto) Lymph # [place] # Baso # Seg Neutrophils % Seg Neuts % (Manual) Lymphocytes % (Manual) Monocytes % (Manual) Eosinophils % (Manual) Basophils % (Manual) Nucleated RBC % Seg Neutrophils # Seg Neutrophils # Man Lymphocytes # (Manual) Monocytes # (Manual) Eosinophils # (Manual) Basophils # (Manual) PT INR Fibrinogen dRVVT Confirm Interp Factor V Activity POC ABG pH POC ABG pCO2 POC ABG pO2 ABG pO2 ABG HCO3 ABG Base Excess ABG Hemoglobin Oxyhemoglobin Sodium Potassium Chloride Carbon Dioxide BUN Creatinine Glucose POC Glucose 119 H 155 H 124 H Lactic Acid Calcium Phosphorus Magnesium Direct Bilirubin AST ALT Alkaline Phosphatase Lactate Dehydrogenase Troponin T C-Reactive Protein Total Protein Albumin Prealbumin Triglycerides Cholesterol LDL Cholesterol Direct HDL Cholesterol Urine pH Urine WBC (Auto) Urine Creatinine Urine Total Protein Fluid Total Protein Vancomycin Trough Rheumatoid Factor Complement C4 Miscellaneous Test Crossmatch 10/19/16 10/19/16 10/19/16 04:00 04:00 05:25 WBC 17.4 H RBC 2.54 L Hgb 7.7 L Hct 23.6 L MCV MCH MCHC RDW 17.3 H Plt Count Lymph % (Auto) [place] % (Auto) Lymph # [place] # Baso # Seg Neutrophils % Seg Neuts % (Manual) Lymphocytes % (Manual) Monocytes % (Manual) Eosinophils % (Manual) Basophils % (Manual) Nucleated RBC % Seg Neutrophils # Seg Neutrophils # Man Lymphocytes # (Manual) Monocytes # (Manual) Eosinophils # (Manual) Basophils # (Manual) PT INR Fibrinogen dRVVT Confirm Interp Factor V Activity POC ABG pH POC ABG pCO2 POC ABG pO2 ABG pO2 ABG HCO3 ABG Base Excess ABG Hemoglobin Oxyhemoglobin Sodium Potassium Chloride Carbon Dioxide BUN 72 H Creatinine 2.1 H Glucose 116 H POC Glucose 119 H Lactic Acid Calcium Phosphorus Magnesium Direct Bilirubin AST ALT Alkaline Phosphatase Lactate Dehydrogenase Troponin T C-Reactive Protein Total Protein Albumin Prealbumin Triglycerides Cholesterol LDL Cholesterol Direct HDL Cholesterol Urine pH Urine WBC (Auto) Urine Creatinine Urine Total Protein Fluid Total Protein Vancomycin Trough Rheumatoid Factor Complement C4 Miscellaneous Test Crossmatch 10/19/16 10/19/16 10/20/16 11:46 23:59 06:00 WBC RBC Hgb Hct MCV MCH MCHC RDW Plt Count Lymph % (Auto) [place] % (Auto) Lymph # [place] # Baso # Seg Neutrophils % Seg Neuts % (Manual) Lymphocytes % (Manual) Monocytes % (Manual) Eosinophils % (Manual) Basophils % (Manual) Nucleated RBC % Seg Neutrophils # Seg Neutrophils # Man Lymphocytes # (Manual) Monocytes # (Manual) Eosinophils # (Manual) Basophils # (Manual) PT INR Fibrinogen dRVVT Confirm Interp Factor V Activity POC ABG pH POC ABG pCO2 POC ABG pO2 ABG pO2 ABG HCO3 ABG Base Excess ABG Hemoglobin Oxyhemoglobin Sodium Potassium Chloride Carbon Dioxide 17 L BUN 94 H Creatinine 2.7 H Glucose POC Glucose 116 H 117 H Lactic Acid Calcium Phosphorus Magnesium Direct Bilirubin AST ALT Alkaline Phosphatase Lactate Dehydrogenase Troponin T C-Reactive Protein Total Protein Albumin Prealbumin Triglycerides Cholesterol LDL Cholesterol Direct HDL Cholesterol Urine pH Urine WBC (Auto) Urine Creatinine Urine Total Protein Fluid Total Protein Vancomycin Trough Rheumatoid Factor Complement C4 Miscellaneous Test Crossmatch 10/20/16 10/20/16 10/20/16 06:00 11:49 16:00 WBC 19.7 H RBC 2.51 L Hgb 7.7 L Hct 23.5 L MCV MCH MCHC RDW 17.5 H Plt Count Lymph % (Auto) [place] % (Auto) Lymph # [place] # Baso # Seg Neutrophils % Seg Neuts % (Manual) Lymphocytes % (Manual) Monocytes % (Manual) Eosinophils % (Manual) Basophils % (Manual) Nucleated RBC % Seg Neutrophils # Seg Neutrophils # Man Lymphocytes # (Manual) Monocytes # (Manual) Eosinophils # (Manual) Basophils # (Manual) PT INR Fibrinogen dRVVT Confirm Interp Factor V Activity POC ABG pH POC ABG pCO2 POC ABG pO2 ABG pO2 ABG HCO3 ABG Base Excess ABG Hemoglobin Oxyhemoglobin Sodium Potassium Chloride Carbon Dioxide BUN Creatinine Glucose POC Glucose 117 H Lactic Acid Calcium Phosphorus Magnesium Direct Bilirubin AST ALT Alkaline Phosphatase Lactate Dehydrogenase Troponin T C-Reactive Protein Total Protein Albumin Prealbumin Triglycerides Cholesterol LDL Cholesterol Direct HDL Cholesterol Urine pH Urine WBC (Auto) Urine Creatinine Urine Total Protein Fluid Total Protein Vancomycin Trough Rheumatoid Factor Complement C4 Miscellaneous Test Flexitest 1 H Crossmatch 10/20/16 10/20/16 10/21/16 18:36 23:39 04:00 WBC RBC Hgb Hct MCV MCH MCHC RDW Plt Count Lymph % (Auto) [place] % (Auto) Lymph # [place] # Baso # Seg Neutrophils % Seg Neuts % (Manual) Lymphocytes % (Manual) Monocytes % (Manual) Eosinophils % (Manual) Basophils % (Manual) Nucleated RBC % Seg Neutrophils # Seg Neutrophils # Man Lymphocytes # (Manual) Monocytes # (Manual) Eosinophils # (Manual) Basophils # (Manual) PT INR Fibrinogen dRVVT Confirm Interp Factor V Activity POC ABG pH POC ABG pCO2 POC ABG pO2 ABG pO2 ABG HCO3 ABG Base Excess ABG Hemoglobin Oxyhemoglobin Sodium Potassium 5.4 H D Chloride Carbon Dioxide 15 L BUN 110 H Creatinine 3.0 H Glucose POC Glucose 127 H 114 H Lactic Acid Calcium Phosphorus Magnesium Direct Bilirubin AST ALT Alkaline Phosphatase Lactate Dehydrogenase Troponin T C-Reactive Protein Total Protein Albumin Prealbumin Triglycerides Cholesterol LDL Cholesterol Direct HDL Cholesterol Urine pH Urine WBC (Auto) Urine Creatinine Urine Total Protein Fluid Total Protein Vancomycin Trough Rheumatoid Factor Complement C4 Miscellaneous Test Crossmatch 10/21/16 10/21/16 10/22/16 05:54 23:46 05:18 WBC RBC Hgb Hct MCV MCH MCHC RDW Plt Count Lymph % (Auto) [place] % (Auto) Lymph # [place] # Baso # Seg Neutrophils % Seg Neuts % (Manual) Lymphocytes % (Manual) Monocytes % (Manual) Eosinophils % (Manual) Basophils % (Manual) Nucleated RBC % Seg Neutrophils # Seg Neutrophils # Man Lymphocytes # (Manual) Monocytes # (Manual) Eosinophils # (Manual) Basophils # (Manual) PT INR Fibrinogen dRVVT Confirm Interp Factor V Activity POC ABG pH POC ABG pCO2 POC ABG pO2 ABG pO2 ABG HCO3 ABG Base Excess ABG Hemoglobin Oxyhemoglobin Sodium Potassium Chloride Carbon Dioxide BUN Creatinine Glucose POC Glucose 119 H 108 H 109 H Lactic Acid Calcium Phosphorus Magnesium Direct Bilirubin AST ALT Alkaline Phosphatase Lactate Dehydrogenase Troponin T C-Reactive Protein Total Protein Albumin Prealbumin Triglycerides Cholesterol LDL Cholesterol Direct HDL Cholesterol Urine pH Urine WBC (Auto) Urine Creatinine Urine Total Protein Fluid Total Protein Vancomycin Trough Rheumatoid Factor Complement C4 Miscellaneous Test Crossmatch 10/22/16 10/22/16 10/22/16 06:40 06:40 06:40 WBC 14.0 H RBC 2.03 L Hgb 7.0 L Hct 20.5 L MCV 98 H MCH 34 H MCHC 35 H RDW 17.8 H Plt Count Lymph % (Auto) [place] % (Auto) 9.9 H Lymph # [place] # 1.4 H Baso # 0.2 H Seg Neutrophils % 72.0 H Seg Neuts % (Manual) Lymphocytes % (Manual) Monocytes % (Manual) Eosinophils % (Manual) Basophils % (Manual) Nucleated RBC % Seg Neutrophils # 10.0 H Seg Neutrophils # Man Lymphocytes # (Manual) Monocytes # (Manual) Eosinophils # (Manual) Basophils # (Manual) PT INR Fibrinogen dRVVT Confirm Interp Factor V Activity POC ABG pH POC ABG pCO2 POC ABG pO2 ABG pO2 ABG HCO3 ABG Base Excess ABG Hemoglobin Oxyhemoglobin Sodium 130 L D Potassium Chloride 92.4 L Carbon Dioxide 20 L BUN 50 H Creatinine 1.6 H Glucose 589 H* POC Glucose Lactic Acid Calcium 7.8 L D Phosphorus Magnesium 1.60 L Direct Bilirubin AST ALT Alkaline Phosphatase Lactate Dehydrogenase Troponin T C-Reactive Protein Total Protein Albumin Prealbumin Triglycerides Cholesterol LDL Cholesterol Direct HDL Cholesterol Urine pH Urine WBC (Auto) Urine Creatinine Urine Total Protein Fluid Total Protein Vancomycin Trough Rheumatoid Factor Complement C4 Miscellaneous Test Crossmatch 10/22/16 10/22/16 10/22/16 11:39 16:44 23:36 WBC RBC Hgb Hct MCV MCH MCHC RDW Plt Count Lymph % (Auto) [place] % (Auto) Lymph # [place] # Baso # Seg Neutrophils % Seg Neuts % (Manual) Lymphocytes % (Manual) Monocytes % (Manual) Eosinophils % (Manual) Basophils % (Manual) Nucleated RBC % Seg Neutrophils # Seg Neutrophils # Man Lymphocytes # (Manual) Monocytes # (Manual) Eosinophils # (Manual) Basophils # (Manual) PT INR Fibrinogen dRVVT Confirm Interp Factor V Activity POC ABG pH POC ABG pCO2 POC ABG pO2 ABG pO2 ABG HCO3 ABG Base Excess ABG Hemoglobin Oxyhemoglobin Sodium Potassium Chloride Carbon Dioxide BUN Creatinine Glucose POC Glucose 142 H 163 H 123 H Lactic Acid Calcium Phosphorus Magnesium Direct Bilirubin AST ALT Alkaline Phosphatase Lactate Dehydrogenase Troponin T C-Reactive Protein Total Protein Albumin Prealbumin Triglycerides Cholesterol LDL Cholesterol Direct HDL Cholesterol Urine pH Urine WBC (Auto) Urine Creatinine Urine Total Protein Fluid Total Protein Vancomycin Trough Rheumatoid Factor Complement C4 Miscellaneous Test Crossmatch 10/23/16 10/23/16 10/23/16 04:58 06:00 12:12 WBC RBC Hgb Hct MCV MCH MCHC RDW Plt Count Lymph % (Auto) [place] % (Auto) Lymph # [place] # Baso # Seg Neutrophils % Seg Neuts % (Manual) Lymphocytes % (Manual) Monocytes % (Manual) Eosinophils % (Manual) Basophils % (Manual) Nucleated RBC % Seg Neutrophils # Seg Neutrophils # Man Lymphocytes # (Manual) Monocytes # (Manual) Eosinophils # (Manual) Basophils # (Manual) PT INR Fibrinogen dRVVT Confirm Interp Factor V Activity POC ABG pH POC ABG pCO2 POC ABG pO2 ABG pO2 ABG HCO3 ABG Base Excess ABG Hemoglobin Oxyhemoglobin Sodium 133 L Potassium 3.5 L Chloride 96.1 L Carbon Dioxide 18 L BUN 76 H Creatinine 2.1 H Glucose POC Glucose 133 H 138 H Lactic Acid Calcium 8.3 L Phosphorus Magnesium Direct Bilirubin AST ALT Alkaline Phosphatase Lactate Dehydrogenase Troponin T C-Reactive Protein Total Protein Albumin Prealbumin Triglycerides Cholesterol LDL Cholesterol Direct HDL Cholesterol Urine pH Urine WBC (Auto) Urine Creatinine Urine Total Protein Fluid Total Protein Vancomycin Trough Rheumatoid Factor Complement C4 Miscellaneous Test Crossmatch 10/23/16 10/23/16 10/24/16 16:53 23:37 04:00 WBC RBC Hgb Hct MCV MCH MCHC RDW Plt Count Lymph % (Auto) [place] % (Auto) Lymph # [place] # Baso # Seg Neutrophils % Seg Neuts % (Manual) Lymphocytes % (Manual) Monocytes % (Manual) Eosinophils % (Manual) Basophils % (Manual) Nucleated RBC % Seg Neutrophils # Seg Neutrophils # Man Lymphocytes # (Manual) Monocytes # (Manual) Eosinophils # (Manual) Basophils # (Manual) PT INR Fibrinogen dRVVT Confirm Interp Factor V Activity POC ABG pH POC ABG pCO2 POC ABG pO2 ABG pO2 ABG HCO3 ABG Base Excess ABG Hemoglobin Oxyhemoglobin Sodium 131 L Potassium Chloride 94.5 L Carbon Dioxide 19 L BUN 97 H Creatinine 2.6 H Glucose 110 H POC Glucose 125 H 123 H Lactic Acid Calcium 8.3 L Phosphorus Magnesium Direct Bilirubin AST ALT Alkaline Phosphatase Lactate Dehydrogenase Troponin T C-Reactive Protein Total Protein Albumin Prealbumin Triglycerides Cholesterol LDL Cholesterol Direct HDL Cholesterol Urine pH Urine WBC (Auto) Urine Creatinine Urine Total Protein Fluid Total Protein Vancomycin Trough Rheumatoid Factor Complement C4 Miscellaneous Test Crossmatch 10/24/16 10/24/16 10/24/16 07:49 11:39 17:52 WBC RBC Hgb 6.0 L Hct 19.7 L* MCV MCH MCHC RDW Plt Count Lymph % (Auto) [place] % (Auto) Lymph # [place] # Baso # Seg Neutrophils % Seg Neuts % (Manual) Lymphocytes % (Manual) Monocytes % (Manual) Eosinophils % (Manual) Basophils % (Manual) Nucleated RBC % Seg Neutrophils # Seg Neutrophils # Man Lymphocytes # (Manual) Monocytes # (Manual) Eosinophils # (Manual) Basophils # (Manual) PT INR Fibrinogen dRVVT Confirm Interp Factor V Activity POC ABG pH POC ABG pCO2 POC ABG pO2 ABG pO2 ABG HCO3 ABG Base Excess ABG Hemoglobin Oxyhemoglobin Sodium Potassium Chloride Carbon Dioxide BUN Creatinine Glucose POC Glucose 106 H 158 H Lactic Acid Calcium Phosphorus Magnesium Direct Bilirubin AST ALT Alkaline Phosphatase Lactate Dehydrogenase Troponin T C-Reactive Protein Total Protein Albumin Prealbumin Triglycerides Cholesterol LDL Cholesterol Direct HDL Cholesterol Urine pH Urine WBC (Auto) Urine Creatinine Urine Total Protein Fluid Total Protein Vancomycin Trough Rheumatoid Factor Complement C4 Miscellaneous Test Crossmatch 10/24/16 10/24/16 10/24/16 20:00 22:27 Unknown WBC RBC Hgb 9.4 L D Hct 27.5 L D MCV MCH MCHC RDW Plt Count Lymph % (Auto) [place] % (Auto) Lymph # [place] # Baso # Seg Neutrophils % Seg Neuts % (Manual) Lymphocytes % (Manual) Monocytes % (Manual) Eosinophils % (Manual) Basophils % (Manual) Nucleated RBC % Seg Neutrophils # Seg Neutrophils # Man Lymphocytes # (Manual) Monocytes # (Manual) Eosinophils # (Manual) Basophils # (Manual) PT INR Fibrinogen dRVVT Confirm Interp Factor V Activity POC ABG pH POC ABG pCO2 POC ABG pO2 ABG pO2 ABG HCO3 ABG Base Excess ABG Hemoglobin Oxyhemoglobin Sodium Potassium Chloride Carbon Dioxide BUN Creatinine Glucose POC Glucose 125 H Lactic Acid Calcium Phosphorus Magnesium Direct Bilirubin AST ALT Alkaline Phosphatase Lactate Dehydrogenase Troponin T C-Reactive Protein Total Protein Albumin Prealbumin Triglycerides Cholesterol LDL Cholesterol Direct HDL Cholesterol Urine pH Urine WBC (Auto) Urine Creatinine Urine Total Protein Fluid Total Protein Vancomycin Trough Rheumatoid Factor Complement C4 Miscellaneous Test Crossmatch See Detail 10/25/16 10/25/16 10/25/16 04:00 04:00 04:00 WBC 14.2 H RBC 2.98 L Hgb 9.0 L Hct 26.2 L MCV MCH MCHC RDW 16.6 H Plt Count Lymph % (Auto) [place] % (Auto) 10.7 H Lymph # [place] # 1.5 H Baso # Seg Neutrophils % 73.6 H Seg Neuts % (Manual) Lymphocytes % (Manual) Monocytes % (Manual) Eosinophils % (Manual) Basophils % (Manual) Nucleated RBC % Seg Neutrophils # 10.5 H Seg Neutrophils # Man Lymphocytes # (Manual) Monocytes # (Manual) Eosinophils # (Manual) Basophils # (Manual) PT INR Fibrinogen dRVVT Confirm Interp Factor V Activity POC ABG pH POC ABG pCO2 POC ABG pO2 ABG pO2 ABG HCO3 ABG Base Excess ABG Hemoglobin Oxyhemoglobin Sodium 132 L Potassium Chloride 94.7 L Carbon Dioxide BUN 51 H Creatinine 1.6 H Glucose 130 H POC Glucose Lactic Acid Calcium 8.3 L Phosphorus 1.60 L D Magnesium Direct Bilirubin AST ALT Alkaline Phosphatase Lactate Dehydrogenase Troponin T C-Reactive Protein Total Protein Albumin Prealbumin Triglycerides Cholesterol LDL Cholesterol Direct HDL Cholesterol Urine pH Urine WBC (Auto) Urine Creatinine Urine Total Protein Fluid Total Protein Vancomycin Trough Rheumatoid Factor Complement C4 Miscellaneous Test Crossmatch 10/25/16 10/25/16 10/25/16 04:32 11:48 17:22 WBC RBC Hgb Hct MCV MCH MCHC RDW Plt Count Lymph % (Auto) [place] % (Auto) Lymph # [place] # Baso # Seg Neutrophils % Seg Neuts % (Manual) Lymphocytes % (Manual) Monocytes % (Manual) Eosinophils % (Manual) Basophils % (Manual) Nucleated RBC % Seg Neutrophils # Seg Neutrophils # Man Lymphocytes # (Manual) Monocytes # (Manual) Eosinophils # (Manual) Basophils # (Manual) PT INR Fibrinogen dRVVT Confirm Interp Factor V Activity POC ABG pH POC ABG pCO2 POC ABG pO2 ABG pO2 ABG HCO3 ABG Base Excess ABG Hemoglobin Oxyhemoglobin Sodium Potassium Chloride Carbon Dioxide BUN Creatinine Glucose POC Glucose 124 H 171 H 120 H Lactic Acid Calcium Phosphorus Magnesium Direct Bilirubin AST ALT Alkaline Phosphatase Lactate Dehydrogenase Troponin T C-Reactive Protein Total Protein Albumin Prealbumin Triglycerides Cholesterol LDL Cholesterol Direct HDL Cholesterol Urine pH Urine WBC (Auto) Urine Creatinine Urine Total Protein Fluid Total Protein Vancomycin Trough Rheumatoid Factor Complement C4 Miscellaneous Test Crossmatch 10/26/16 10/26/16 10/26/16 04:54 07:06 07:06 WBC 16.9 H RBC 3.06 L Hgb 9.1 L Hct 26.9 L MCV MCH MCHC RDW 16.9 H Plt Count Lymph % (Auto) [place] % (Auto) Lymph # [place] # Baso # Seg Neutrophils % Seg Neuts % (Manual) 71.0 H Lymphocytes % (Manual) 5.0 L Monocytes % (Manual) 12.0 H Eosinophils % (Manual) Basophils % (Manual) Nucleated RBC % Seg Neutrophils # Seg Neutrophils # Man 12.0 H Lymphocytes # (Manual) 0.8 L Monocytes # (Manual) 2.0 H Eosinophils # (Manual) Basophils # (Manual) PT INR Fibrinogen dRVVT Confirm Interp Factor V Activity POC ABG pH POC ABG pCO2 POC ABG pO2 ABG pO2 ABG HCO3 ABG Base Excess ABG Hemoglobin Oxyhemoglobin Sodium 135 L Potassium Chloride 97.1 L Carbon Dioxide BUN 73 H Creatinine 2.2 H Glucose 117 H POC Glucose 123 H Lactic Acid Calcium Phosphorus 1.70 L Magnesium Direct Bilirubin AST ALT Alkaline Phosphatase Lactate Dehydrogenase Troponin T C-Reactive Protein Total Protein Albumin Prealbumin Triglycerides Cholesterol LDL Cholesterol Direct HDL Cholesterol Urine pH Urine WBC (Auto) Urine Creatinine Urine Total Protein Fluid Total Protein Vancomycin Trough Rheumatoid Factor Complement C4 Miscellaneous Test Crossmatch 10/26/16 10/26/16 10/26/16 12:12 17:29 23:42 WBC RBC Hgb Hct MCV MCH MCHC RDW Plt Count Lymph % (Auto) [place] % (Auto) Lymph # [place] # Baso # Seg Neutrophils % Seg Neuts % (Manual) Lymphocytes % (Manual) Monocytes % (Manual) Eosinophils % (Manual) Basophils % (Manual) Nucleated RBC % Seg Neutrophils # Seg Neutrophils # Man Lymphocytes # (Manual) Monocytes # (Manual) Eosinophils # (Manual) Basophils # (Manual) PT INR Fibrinogen dRVVT Confirm Interp Factor V Activity POC ABG pH POC ABG pCO2 POC ABG pO2 ABG pO2 ABG HCO3 ABG Base Excess ABG Hemoglobin Oxyhemoglobin Sodium Potassium Chloride Carbon Dioxide BUN Creatinine Glucose POC Glucose 126 H 161 H 118 H Lactic Acid Calcium Phosphorus Magnesium Direct Bilirubin AST ALT Alkaline Phosphatase Lactate Dehydrogenase Troponin T C-Reactive Protein Total Protein Albumin Prealbumin Triglycerides Cholesterol LDL Cholesterol Direct HDL Cholesterol Urine pH Urine WBC (Auto) Urine Creatinine Urine Total Protein Fluid Total Protein Vancomycin Trough Rheumatoid Factor Complement C4 Miscellaneous Test Crossmatch 10/27/16 10/27/16 10/27/16 05:03 06:30 06:30 WBC 13.9 H RBC 3.09 L Hgb 9.2 L Hct 27.5 L MCV MCH MCHC RDW 17.0 H Plt Count Lymph % (Auto) [place] % (Auto) Lymph # [place] # Baso # Seg Neutrophils % Seg Neuts % (Manual) 78.0 H Lymphocytes % (Manual) Monocytes % (Manual) Eosinophils % (Manual) Basophils % (Manual) Nucleated RBC % 2.0 H Seg Neutrophils # Seg Neutrophils # Man 10.8 H Lymphocytes # (Manual) Monocytes # (Manual) 1.0 H Eosinophils # (Manual) Basophils # (Manual) PT INR Fibrinogen dRVVT Confirm Interp Factor V Activity POC ABG pH POC ABG pCO2 POC ABG pO2 ABG pO2 ABG HCO3 ABG Base Excess ABG Hemoglobin Oxyhemoglobin Sodium Potassium Chloride Carbon Dioxide BUN 40 H Creatinine 1.5 H Glucose 135 H POC Glucose 107 H Lactic Acid Calcium 8.3 L Phosphorus 1.30 L D Magnesium Direct Bilirubin AST ALT Alkaline Phosphatase Lactate Dehydrogenase Troponin T C-Reactive Protein Total Protein Albumin Prealbumin Triglycerides Cholesterol LDL Cholesterol Direct HDL Cholesterol Urine pH Urine WBC (Auto) Urine Creatinine Urine Total Protein Fluid Total Protein Vancomycin Trough Rheumatoid Factor Complement C4 Miscellaneous Test Crossmatch 10/27/16 10/27/16 10/27/16 13:27 18:07 23:40 WBC RBC Hgb Hct MCV MCH MCHC RDW Plt Count Lymph % (Auto) [place] % (Auto) Lymph # [place] # Baso # Seg Neutrophils % Seg Neuts % (Manual) Lymphocytes % (Manual) Monocytes % (Manual) Eosinophils % (Manual) Basophils % (Manual) Nucleated RBC % Seg Neutrophils # Seg Neutrophils # Man Lymphocytes # (Manual) Monocytes # (Manual) Eosinophils # (Manual) Basophils # (Manual) PT INR Fibrinogen dRVVT Confirm Interp Factor V Activity POC ABG pH POC ABG pCO2 POC ABG pO2 ABG pO2 ABG HCO3 ABG Base Excess ABG Hemoglobin Oxyhemoglobin Sodium Potassium Chloride Carbon Dioxide BUN Creatinine Glucose POC Glucose 117 H 121 H 118 H Lactic Acid Calcium Phosphorus Magnesium Direct Bilirubin AST ALT Alkaline Phosphatase Lactate Dehydrogenase Troponin T C-Reactive Protein Total Protein Albumin Prealbumin Triglycerides Cholesterol LDL Cholesterol Direct HDL Cholesterol Urine pH Urine WBC (Auto) Urine Creatinine Urine Total Protein Fluid Total Protein Vancomycin Trough Rheumatoid Factor Complement C4 Miscellaneous Test Crossmatch 10/28/16 10/28/16 10/28/16 05:48 06:45 06:45 WBC 14.7 H RBC 3.05 L Hgb 9.0 L Hct 26.9 L MCV MCH MCHC RDW 16.8 H Plt Count Lymph % (Auto) 8.2 L [place] % (Auto) 8.4 H Lymph # [place] # 1.2 H Baso # Seg Neutrophils % 81.9 H Seg Neuts % (Manual) Lymphocytes % (Manual) Monocytes % (Manual) Eosinophils % (Manual) Basophils % (Manual) Nucleated RBC % Seg Neutrophils # 12.1 H Seg Neutrophils # Man Lymphocytes # (Manual) Monocytes # (Manual) Eosinophils # (Manual) Basophils # (Manual) PT INR Fibrinogen dRVVT Confirm Interp Factor V Activity POC ABG pH POC ABG pCO2 POC ABG pO2 ABG pO2 ABG HCO3 ABG Base Excess ABG Hemoglobin Oxyhemoglobin Sodium Potassium Chloride Carbon Dioxide BUN 60 H Creatinine 1.9 H Glucose 120 H POC Glucose 114 H Lactic Acid Calcium Phosphorus Magnesium Direct Bilirubin AST ALT Alkaline Phosphatase Lactate Dehydrogenase Troponin T C-Reactive Protein Total Protein Albumin Prealbumin Triglycerides Cholesterol LDL Cholesterol Direct HDL Cholesterol Urine pH Urine WBC (Auto) Urine Creatinine Urine Total Protein Fluid Total Protein Vancomycin Trough Rheumatoid Factor Complement C4 Miscellaneous Test Crossmatch 10/28/16 10/28/16 10/29/16 17:08 23:50 05:10 WBC RBC Hgb Hct MCV MCH MCHC RDW Plt Count Lymph % (Auto) [place] % (Auto) Lymph # [place] # Baso # Seg Neutrophils % Seg Neuts % (Manual) Lymphocytes % (Manual) Monocytes % (Manual) Eosinophils % (Manual) Basophils % (Manual) Nucleated RBC % Seg Neutrophils # Seg Neutrophils # Man Lymphocytes # (Manual) Monocytes # (Manual) Eosinophils # (Manual) Basophils # (Manual) PT INR Fibrinogen dRVVT Confirm Interp Factor V Activity POC ABG pH POC ABG pCO2 POC ABG pO2 ABG pO2 ABG HCO3 ABG Base Excess ABG Hemoglobin Oxyhemoglobin Sodium Potassium Chloride Carbon Dioxide BUN Creatinine Glucose POC Glucose 109 H 110 H 124 H Lactic Acid Calcium Phosphorus Magnesium Direct Bilirubin AST ALT Alkaline Phosphatase Lactate Dehydrogenase Troponin T C-Reactive Protein Total Protein Albumin Prealbumin Triglycerides Cholesterol LDL Cholesterol Direct HDL Cholesterol Urine pH Urine WBC (Auto) Urine Creatinine Urine Total Protein Fluid Total Protein Vancomycin Trough Rheumatoid Factor Complement C4 Miscellaneous Test Crossmatch 10/29/16 10/29/16 10/29/16 07:45 07:45 12:19 WBC 14.7 H RBC 3.15 L Hgb 9.3 L Hct 28.9 L MCV MCH MCHC RDW 17.0 H Plt Count Lymph % (Auto) 11.9 L [place] % (Auto) 8.6 H Lymph # [place] # 1.3 H Baso # Seg Neutrophils % 78.1 H Seg Neuts % (Manual) Lymphocytes % (Manual) Monocytes % (Manual) Eosinophils % (Manual) Basophils % (Manual) Nucleated RBC % Seg Neutrophils # 11.4 H Seg Neutrophils # Man Lymphocytes # (Manual) Monocytes # (Manual) Eosinophils # (Manual) Basophils # (Manual) PT INR Fibrinogen dRVVT Confirm Interp Factor V Activity POC ABG pH POC ABG pCO2 POC ABG pO2 ABG pO2 ABG HCO3 ABG Base Excess ABG Hemoglobin Oxyhemoglobin Sodium Potassium 5.1 H Chloride Carbon Dioxide 19 L BUN 78 H Creatinine 2.2 H Glucose 116 H POC Glucose 118 H Lactic Acid Calcium Phosphorus Magnesium Direct Bilirubin AST ALT Alkaline Phosphatase Lactate Dehydrogenase Troponin T C-Reactive Protein Total Protein Albumin Prealbumin Triglycerides Cholesterol LDL Cholesterol Direct HDL Cholesterol Urine pH Urine WBC (Auto) Urine Creatinine Urine Total Protein Fluid Total Protein Vancomycin Trough Rheumatoid Factor Complement C4 Miscellaneous Test Crossmatch 10/29/16 10/30/16 10/30/16 17:49 01:52 03:28 WBC RBC Hgb Hct MCV MCH MCHC RDW Plt Count Lymph % (Auto) [place] % (Auto) Lymph # [place] # Baso # Seg Neutrophils % Seg Neuts % (Manual) Lymphocytes % (Manual) Monocytes % (Manual) Eosinophils % (Manual) Basophils % (Manual) Nucleated RBC % Seg Neutrophils # Seg Neutrophils # Man Lymphocytes # (Manual) Monocytes # (Manual) Eosinophils # (Manual) Basophils # (Manual) PT INR Fibrinogen dRVVT Confirm Interp Factor V Activity POC ABG pH POC ABG pCO2 POC ABG pO2 ABG pO2 ABG HCO3 ABG Base Excess ABG Hemoglobin Oxyhemoglobin Sodium Potassium 5.4 H Chloride 97.5 L Carbon Dioxide 19 L BUN 90 H Creatinine 2.5 H Glucose POC Glucose 120 H 129 H Lactic Acid Calcium Phosphorus 5.20 H Magnesium Direct Bilirubin AST ALT Alkaline Phosphatase Lactate Dehydrogenase Troponin T C-Reactive Protein Total Protein Albumin Prealbumin Triglycerides Cholesterol LDL Cholesterol Direct HDL Cholesterol Urine pH Urine WBC (Auto) Urine Creatinine Urine Total Protein Fluid Total Protein Vancomycin Trough Rheumatoid Factor Complement C4 Miscellaneous Test Crossmatch 10/30/16 10/30/16 10/30/16 03:28 08:19 08:19 WBC 11.6 H 15.9 H RBC 2.75 L 2.82 L Hgb 7.9 L 8.3 L Hct 24.2 L 25.2 L MCV MCH MCHC RDW 16.7 H 17.2 H Plt Count Lymph % (Auto) [place] % (Auto) 9.8 H Lymph # [place] # 1.1 H Baso # Seg Neutrophils % 74.2 H Seg Neuts % (Manual) Lymphocytes % (Manual) Monocytes % (Manual) Eosinophils % (Manual) Basophils % (Manual) Nucleated RBC % Seg Neutrophils # 8.6 H Seg Neutrophils # Man Lymphocytes # (Manual) Monocytes # (Manual) Eosinophils # (Manual) Basophils # (Manual) PT INR Fibrinogen dRVVT Confirm Interp Factor V Activity POC ABG pH POC ABG pCO2 POC ABG pO2 ABG pO2 ABG HCO3 ABG Base Excess ABG Hemoglobin Oxyhemoglobin Sodium Potassium 5.3 H Chloride 97.4 L Carbon Dioxide 19 L BUN 93 H Creatinine 2.6 H Glucose POC Glucose Lactic Acid Calcium Phosphorus Magnesium Direct Bilirubin AST ALT Alkaline Phosphatase Lactate Dehydrogenase Troponin T C-Reactive Protein Total Protein Albumin Prealbumin Triglycerides Cholesterol LDL Cholesterol Direct HDL Cholesterol Urine pH Urine WBC (Auto) Urine Creatinine Urine Total Protein Fluid Total Protein Vancomycin Trough Rheumatoid Factor Complement C4 Miscellaneous Test Crossmatch 10/30/16 10/30/16 10/31/16 17:11 23:56 00:40 WBC RBC Hgb Hct MCV MCH MCHC RDW Plt Count Lymph % (Auto) [place] % (Auto) Lymph # [place] # Baso # Seg Neutrophils % Seg Neuts % (Manual) Lymphocytes % (Manual) Monocytes % (Manual) Eosinophils % (Manual) Basophils % (Manual) Nucleated RBC % Seg Neutrophils # Seg Neutrophils # Man Lymphocytes # (Manual) Monocytes # (Manual) Eosinophils # (Manual) Basophils # (Manual) PT INR Fibrinogen dRVVT Confirm Interp Factor V Activity POC ABG pH POC ABG pCO2 POC ABG pO2 ABG pO2 ABG HCO3 ABG Base Excess ABG Hemoglobin Oxyhemoglobin Sodium Potassium Chloride Carbon Dioxide BUN Creatinine Glucose POC Glucose 106 H 117 H 120 H Lactic Acid Calcium Phosphorus Magnesium Direct Bilirubin AST ALT Alkaline Phosphatase Lactate Dehydrogenase Troponin T C-Reactive Protein Total Protein Albumin Prealbumin Triglycerides Cholesterol LDL Cholesterol Direct HDL Cholesterol Urine pH Urine WBC (Auto) Urine Creatinine Urine Total Protein Fluid Total Protein Vancomycin Trough Rheumatoid Factor Complement C4 Miscellaneous Test Crossmatch 10/31/16 10/31/16 10/31/16 05:43 07:15 07:15 WBC 12.1 H RBC 2.63 L Hgb 7.7 L Hct 23.3 L MCV MCH MCHC RDW 16.7 H Plt Count Lymph % (Auto) 11.7 L [place] % (Auto) 7.7 H Lymph # [place] # 0.9 H Baso # Seg Neutrophils % 78.0 H Seg Neuts % (Manual) Lymphocytes % (Manual) Monocytes % (Manual) Eosinophils % (Manual) Basophils % (Manual) Nucleated RBC % Seg Neutrophils # 9.4 H Seg Neutrophils # Man Lymphocytes # (Manual) Monocytes # (Manual) Eosinophils # (Manual) Basophils # (Manual) PT INR Fibrinogen dRVVT Confirm Interp Factor V Activity POC ABG pH POC ABG pCO2 POC ABG pO2 ABG pO2 ABG HCO3 ABG Base Excess ABG Hemoglobin Oxyhemoglobin Sodium Potassium Chloride 96.4 L Carbon Dioxide 21 L BUN 99 H Creatinine 2.6 H Glucose 144 H POC Glucose 125 H Lactic Acid Calcium Phosphorus 4.80 H Magnesium Direct Bilirubin AST ALT Alkaline Phosphatase Lactate Dehydrogenase Troponin T C-Reactive Protein Total Protein Albumin Prealbumin Triglycerides Cholesterol LDL Cholesterol Direct HDL Cholesterol Urine pH Urine WBC (Auto) Urine Creatinine Urine Total Protein Fluid Total Protein Vancomycin Trough Rheumatoid Factor Complement C4 Miscellaneous Test Crossmatch 10/31/16 10/31/16 11/01/16 11:46 18:34 00:20 WBC RBC Hgb Hct MCV MCH MCHC RDW Plt Count Lymph % (Auto) [place] % (Auto) Lymph # [place] # Baso # Seg Neutrophils % Seg Neuts % (Manual) Lymphocytes % (Manual) Monocytes % (Manual) Eosinophils % (Manual) Basophils % (Manual) Nucleated RBC % Seg Neutrophils # Seg Neutrophils # Man Lymphocytes # (Manual) Monocytes # (Manual) Eosinophils # (Manual) Basophils # (Manual) PT INR Fibrinogen dRVVT Confirm Interp Factor V Activity POC ABG pH POC ABG pCO2 POC ABG pO2 ABG pO2 ABG HCO3 ABG Base Excess ABG Hemoglobin Oxyhemoglobin Sodium Potassium Chloride Carbon Dioxide BUN Creatinine Glucose POC Glucose 159 H 140 H 132 H Lactic Acid Calcium Phosphorus Magnesium Direct Bilirubin AST ALT Alkaline Phosphatase Lactate Dehydrogenase Troponin T C-Reactive Protein Total Protein Albumin Prealbumin Triglycerides Cholesterol LDL Cholesterol Direct HDL Cholesterol Urine pH Urine WBC (Auto) Urine Creatinine Urine Total Protein Fluid Total Protein Vancomycin Trough Rheumatoid Factor Complement C4 Miscellaneous Test Crossmatch 11/01/16 11/01/16 11/01/16 04:55 04:55 06:11 WBC 11.2 H RBC 2.68 L Hgb 7.5 L Hct 23.7 L MCV MCH MCHC RDW 16.1 H Plt Count Lymph % (Auto) [place] % (Auto) 9.8 H Lymph # [place] # 1.1 H Baso # Seg Neutrophils % 70.8 H Seg Neuts % (Manual) Lymphocytes % (Manual) Monocytes % (Manual) Eosinophils % (Manual) Basophils % (Manual) Nucleated RBC % Seg Neutrophils # 7.9 H Seg Neutrophils # Man Lymphocytes # (Manual) Monocytes # (Manual) Eosinophils # (Manual) Basophils # (Manual) PT INR Fibrinogen dRVVT Confirm Interp Factor V Activity POC ABG pH POC ABG pCO2 POC ABG pO2 ABG pO2 ABG HCO3 ABG Base Excess ABG Hemoglobin Oxyhemoglobin Sodium Potassium 3.3 L D Chloride Carbon Dioxide BUN 61 H Creatinine 1.9 H Glucose 114 H POC Glucose 115 H Lactic Acid Calcium Phosphorus 1.80 L D Magnesium Direct Bilirubin AST ALT Alkaline Phosphatase Lactate Dehydrogenase Troponin T C-Reactive Protein Total Protein Albumin Prealbumin Triglycerides Cholesterol LDL Cholesterol Direct HDL Cholesterol Urine pH Urine WBC (Auto) Urine Creatinine Urine Total Protein Fluid Total Protein Vancomycin Trough Rheumatoid Factor Complement C4 Miscellaneous Test Crossmatch 11/01/16 11/01/16 11/01/16 12:29 18:23 23:58 WBC RBC Hgb Hct MCV MCH MCHC RDW Plt Count Lymph % (Auto) [place] % (Auto) Lymph # [place] # Baso # Seg Neutrophils % Seg Neuts % (Manual) Lymphocytes % (Manual) Monocytes % (Manual) Eosinophils % (Manual) Basophils % (Manual) Nucleated RBC % Seg Neutrophils # Seg Neutrophils # Man Lymphocytes # (Manual) Monocytes # (Manual) Eosinophils # (Manual) Basophils # (Manual) PT INR Fibrinogen dRVVT Confirm Interp Factor V Activity POC ABG pH POC ABG pCO2 POC ABG pO2 ABG pO2 ABG HCO3 ABG Base Excess ABG Hemoglobin Oxyhemoglobin Sodium Potassium Chloride Carbon Dioxide BUN Creatinine Glucose POC Glucose 142 H 143 H 128 H Lactic Acid Calcium Phosphorus Magnesium Direct Bilirubin AST ALT Alkaline Phosphatase Lactate Dehydrogenase Troponin T C-Reactive Protein Total Protein Albumin Prealbumin Triglycerides Cholesterol LDL Cholesterol Direct HDL Cholesterol Urine pH Urine WBC (Auto) Urine Creatinine Urine Total Protein Fluid Total Protein Vancomycin Trough Rheumatoid Factor Complement C4 Miscellaneous Test Crossmatch 11/02/16 11/02/16 11/02/16 04:16 05:29 11:58 WBC RBC Hgb Hct MCV MCH MCHC RDW Plt Count Lymph % (Auto) [place] % (Auto) Lymph # [place] # Baso # Seg Neutrophils % Seg Neuts % (Manual) Lymphocytes % (Manual) Monocytes % (Manual) Eosinophils % (Manual) Basophils % (Manual) Nucleated RBC % Seg Neutrophils # Seg Neutrophils # Man Lymphocytes # (Manual) Monocytes # (Manual) Eosinophils # (Manual) Basophils # (Manual) PT INR Fibrinogen dRVVT Confirm Interp Factor V Activity POC ABG pH POC ABG pCO2 POC ABG pO2 ABG pO2 ABG HCO3 ABG Base Excess ABG Hemoglobin Oxyhemoglobin Sodium Potassium 3.1 L Chloride Carbon Dioxide BUN 73 H Creatinine 2.3 H Glucose 112 H POC Glucose 135 H 149 H Lactic Acid Calcium Phosphorus Magnesium Direct Bilirubin AST ALT Alkaline Phosphatase Lactate Dehydrogenase Troponin T C-Reactive Protein Total Protein Albumin Prealbumin Triglycerides Cholesterol LDL Cholesterol Direct HDL Cholesterol Urine pH Urine WBC (Auto) Urine Creatinine Urine Total Protein Fluid Total Protein Vancomycin Trough Rheumatoid Factor Complement C4 Miscellaneous Test Crossmatch 11/02/16 11/02/16 11/03/16 17:42 22:54 06:00 WBC RBC Hgb Hct MCV MCH MCHC RDW Plt Count Lymph % (Auto) [place] % (Auto) Lymph # [place] # Baso # Seg Neutrophils % Seg Neuts % (Manual) Lymphocytes % (Manual) Monocytes % (Manual) Eosinophils % (Manual) Basophils % (Manual) Nucleated RBC % Seg Neutrophils # Seg Neutrophils # Man Lymphocytes # (Manual) Monocytes # (Manual) Eosinophils # (Manual) Basophils # (Manual) PT INR Fibrinogen dRVVT Confirm Interp Factor V Activity POC ABG pH POC ABG pCO2 POC ABG pO2 ABG pO2 ABG HCO3 ABG Base Excess ABG Hemoglobin Oxyhemoglobin Sodium Potassium Chloride 96.7 L Carbon Dioxide BUN 41 H Creatinine 1.5 H Glucose 145 H POC Glucose 182 H 115 H Lactic Acid Calcium Phosphorus 1.60 L D Magnesium 1.50 L Direct Bilirubin AST ALT Alkaline Phosphatase Lactate Dehydrogenase Troponin T C-Reactive Protein Total Protein Albumin Prealbumin Triglycerides Cholesterol LDL Cholesterol Direct HDL Cholesterol Urine pH Urine WBC (Auto) Urine Creatinine Urine Total Protein Fluid Total Protein Vancomycin Trough Rheumatoid Factor Complement C4 Miscellaneous Test Crossmatch 11/03/16 11/03/16 11/03/16 11:53 17:45 23:37 WBC RBC Hgb Hct MCV MCH MCHC RDW Plt Count Lymph % (Auto) [place] % (Auto) Lymph # [place] # Baso # Seg Neutrophils % Seg Neuts % (Manual) Lymphocytes % (Manual) Monocytes % (Manual) Eosinophils % (Manual) Basophils % (Manual) Nucleated RBC % Seg Neutrophils # Seg Neutrophils # Man Lymphocytes # (Manual) Monocytes # (Manual) Eosinophils # (Manual) Basophils # (Manual) PT INR Fibrinogen dRVVT Confirm Interp Factor V Activity POC ABG pH POC ABG pCO2 POC ABG pO2 ABG pO2 ABG HCO3 ABG Base Excess ABG Hemoglobin Oxyhemoglobin Sodium Potassium Chloride Carbon Dioxide BUN Creatinine Glucose POC Glucose 131 H 134 H 113 H Lactic Acid Calcium Phosphorus Magnesium Direct Bilirubin AST ALT Alkaline Phosphatase Lactate Dehydrogenase Troponin T C-Reactive Protein Total Protein Albumin Prealbumin Triglycerides Cholesterol LDL Cholesterol Direct HDL Cholesterol Urine pH Urine WBC (Auto) Urine Creatinine Urine Total Protein Fluid Total Protein Vancomycin Trough Rheumatoid Factor Complement C4 Miscellaneous Test Crossmatch 11/04/16 11/04/16 11/04/16 05:41 06:00 12:10 WBC RBC Hgb Hct MCV MCH MCHC RDW Plt Count Lymph % (Auto) [place] % (Auto) Lymph # [place] # Baso # Seg Neutrophils % Seg Neuts % (Manual) Lymphocytes % (Manual) Monocytes % (Manual) Eosinophils % (Manual) Basophils % (Manual) Nucleated RBC % Seg Neutrophils # Seg Neutrophils # Man Lymphocytes # (Manual) Monocytes # (Manual) Eosinophils # (Manual) Basophils # (Manual) PT INR Fibrinogen dRVVT Confirm Interp Factor V Activity POC ABG pH POC ABG pCO2 POC ABG pO2 ABG pO2 ABG HCO3 ABG Base Excess ABG Hemoglobin Oxyhemoglobin Sodium Potassium Chloride 96.7 L Carbon Dioxide BUN 52 H Creatinine 1.9 H Glucose 126 H POC Glucose 137 H 191 H Lactic Acid Calcium Phosphorus Magnesium Direct Bilirubin AST ALT Alkaline Phosphatase Lactate Dehydrogenase Troponin T C-Reactive Protein Total Protein Albumin Prealbumin Triglycerides Cholesterol LDL Cholesterol Direct HDL Cholesterol Urine pH Urine WBC (Auto) Urine Creatinine Urine Total Protein Fluid Total Protein Vancomycin Trough Rheumatoid Factor Complement C4 Miscellaneous Test Crossmatch 11/04/16 11/05/16 11/05/16 22:57 03:10 05:10 WBC RBC Hgb Hct MCV MCH MCHC RDW Plt Count Lymph % (Auto) [place] % (Auto) Lymph # [place] # Baso # Seg Neutrophils % Seg Neuts % (Manual) Lymphocytes % (Manual) Monocytes % (Manual) Eosinophils % (Manual) Basophils % (Manual) Nucleated RBC % Seg Neutrophils # Seg Neutrophils # Man Lymphocytes # (Manual) Monocytes # (Manual) Eosinophils # (Manual) Basophils # (Manual) PT INR Fibrinogen dRVVT Confirm Interp Factor V Activity POC ABG pH POC ABG pCO2 POC ABG pO2 ABG pO2 ABG HCO3 ABG Base Excess ABG Hemoglobin Oxyhemoglobin Sodium 136 L Potassium Chloride 97.2 L Carbon Dioxide BUN 32 H Creatinine 1.3 H Glucose 123 H POC Glucose 125 H 108 H Lactic Acid Calcium 7.8 L Phosphorus Magnesium Direct Bilirubin AST ALT Alkaline Phosphatase Lactate Dehydrogenase Troponin T C-Reactive Protein Total Protein Albumin Prealbumin Triglycerides Cholesterol LDL Cholesterol Direct HDL Cholesterol Urine pH Urine WBC (Auto) Urine Creatinine Urine Total Protein Fluid Total Protein Vancomycin Trough Rheumatoid Factor Complement C4 Miscellaneous Test Crossmatch 11/05/16 11/05/16 11/05/16 12:23 13:09 13:25 WBC RBC Hgb Hct MCV MCH MCHC RDW Plt Count Lymph % (Auto) [place] % (Auto) Lymph # [place] # Baso # Seg Neutrophils % Seg Neuts % (Manual) Lymphocytes % (Manual) Monocytes % (Manual) Eosinophils % (Manual) Basophils % (Manual) Nucleated RBC % Seg Neutrophils # Seg Neutrophils # Man Lymphocytes # (Manual) Monocytes # (Manual) Eosinophils # (Manual) Basophils # (Manual) PT INR Fibrinogen dRVVT Confirm Interp Factor V Activity POC ABG pH POC ABG pCO2 POC ABG pO2 ABG pO2 ABG HCO3 ABG Base Excess ABG Hemoglobin Oxyhemoglobin Sodium Potassium Chloride Carbon Dioxide BUN Creatinine Glucose POC Glucose 124 H Lactic Acid Calcium Phosphorus Magnesium Direct Bilirubin AST ALT Alkaline Phosphatase Lactate Dehydrogenase Troponin T C-Reactive Protein 11.40 H Total Protein Albumin Prealbumin Triglycerides Cholesterol LDL Cholesterol Direct HDL Cholesterol Urine pH 9.0 H Urine WBC (Auto) Urine Creatinine Urine Total Protein Fluid Total Protein Vancomycin Trough Rheumatoid Factor Complement C4 Miscellaneous Test Crossmatch 11/05/16 11/05/16 11/05/16 13:25 17:54 23:42 WBC RBC Hgb Hct MCV MCH MCHC RDW Plt Count Lymph % (Auto) [place] % (Auto) Lymph # [place] # Baso # Seg Neutrophils % Seg Neuts % (Manual) Lymphocytes % (Manual) Monocytes % (Manual) Eosinophils % (Manual) Basophils % (Manual) Nucleated RBC % Seg Neutrophils # Seg Neutrophils # Man Lymphocytes # (Manual) Monocytes # (Manual) Eosinophils # (Manual) Basophils # (Manual) PT INR Fibrinogen dRVVT Confirm Interp Factor V Activity POC ABG pH POC ABG pCO2 POC ABG pO2 ABG pO2 ABG HCO3 ABG Base Excess ABG Hemoglobin Oxyhemoglobin Sodium Potassium Chloride Carbon Dioxide BUN Creatinine Glucose POC Glucose 114 H 134 H Lactic Acid Calcium Phosphorus Magnesium Direct Bilirubin AST ALT Alkaline Phosphatase Lactate Dehydrogenase Troponin T C-Reactive Protein Total Protein Albumin Prealbumin Triglycerides Cholesterol LDL Cholesterol Direct HDL Cholesterol Urine pH Urine WBC (Auto) Urine Creatinine Urine Total Protein Fluid Total Protein Vancomycin Trough Rheumatoid Factor Complement C4 Miscellaneous Test Flexitest 1 H Crossmatch 11/06/16 11/06/16 11/06/16 04:56 06:25 06:25 WBC RBC 2.50 L Hgb 7.3 L Hct 22.5 L MCV MCH MCHC RDW 16.9 H Plt Count Lymph % (Auto) [place] % (Auto) 10.5 H Lymph # [place] # 1.1 H Baso # Seg Neutrophils % Seg Neuts % (Manual) Lymphocytes % (Manual) Monocytes % (Manual) Eosinophils % (Manual) Basophils % (Manual) Nucleated RBC % Seg Neutrophils # Seg Neutrophils # Man Lymphocytes # (Manual) Monocytes # (Manual) Eosinophils # (Manual) Basophils # (Manual) PT INR Fibrinogen dRVVT Confirm Interp Factor V Activity POC ABG pH POC ABG pCO2 POC ABG pO2 ABG pO2 ABG HCO3 ABG Base Excess ABG Hemoglobin Oxyhemoglobin Sodium Potassium 5.1 H Chloride 95.9 L Carbon Dioxide BUN 52 H Creatinine 1.8 H Glucose 117 H POC Glucose 120 H Lactic Acid Calcium Phosphorus Magnesium Direct Bilirubin AST 103 H ALT 77 H Alkaline Phosphatase 285 H Lactate Dehydrogenase Troponin T C-Reactive Protein Total Protein 6.2 L Albumin 1.8 L Prealbumin 0.180 L Triglycerides Cholesterol LDL Cholesterol Direct HDL Cholesterol Urine pH Urine WBC (Auto) Urine Creatinine Urine Total Protein Fluid Total Protein Vancomycin Trough Rheumatoid Factor Complement C4 Miscellaneous Test Crossmatch 11/06/16 11/06/16 11/06/16 11:56 17:14 23:52 WBC RBC Hgb Hct MCV MCH MCHC RDW Plt Count Lymph % (Auto) [place] % (Auto) Lymph # [place] # Baso # Seg Neutrophils % Seg Neuts % (Manual) Lymphocytes % (Manual) Monocytes % (Manual) Eosinophils % (Manual) Basophils % (Manual) Nucleated RBC % Seg Neutrophils # Seg Neutrophils # Man Lymphocytes # (Manual) Monocytes # (Manual) Eosinophils # (Manual) Basophils # (Manual) PT INR Fibrinogen dRVVT Confirm Interp Factor V Activity POC ABG pH POC ABG pCO2 POC ABG pO2 ABG pO2 ABG HCO3 ABG Base Excess ABG Hemoglobin Oxyhemoglobin Sodium Potassium Chloride Carbon Dioxide BUN Creatinine Glucose POC Glucose 141 H 125 H 130 H Lactic Acid Calcium Phosphorus Magnesium Direct Bilirubin AST ALT Alkaline Phosphatase Lactate Dehydrogenase Troponin T C-Reactive Protein Total Protein Albumin Prealbumin Triglycerides Cholesterol LDL Cholesterol Direct HDL Cholesterol Urine pH Urine WBC (Auto) Urine Creatinine Urine Total Protein Fluid Total Protein Vancomycin Trough Rheumatoid Factor Complement C4 Miscellaneous Test Crossmatch 11/07/16 11/07/16 11/07/16 06:30 06:30 09:37 WBC RBC 2.18 L Hgb 6.3 L Hct 19.7 L* MCV MCH MCHC RDW 16.8 H Plt Count Lymph % (Auto) [place] % (Auto) 10.0 H Lymph # [place] # 1.0 H Baso # Seg Neutrophils % Seg Neuts % (Manual) Lymphocytes % (Manual) Monocytes % (Manual) Eosinophils % (Manual) Basophils % (Manual) Nucleated RBC % Seg Neutrophils # Seg Neutrophils # Man Lymphocytes # (Manual) Monocytes # (Manual) Eosinophils # (Manual) Basophils # (Manual) PT INR Fibrinogen dRVVT Confirm Interp Factor V Activity POC ABG pH POC ABG pCO2 POC ABG pO2 ABG pO2 ABG HCO3 ABG Base Excess ABG Hemoglobin Oxyhemoglobin Sodium 135 L Potassium Chloride 95.6 L Carbon Dioxide BUN 70 H Creatinine 2.0 H Glucose 126 H POC Glucose Lactic Acid Calcium Phosphorus Magnesium Direct Bilirubin AST ALT Alkaline Phosphatase Lactate Dehydrogenase Troponin T C-Reactive Protein Total Protein Albumin Prealbumin Triglycerides Cholesterol LDL Cholesterol Direct HDL Cholesterol Urine pH Urine WBC (Auto) Urine Creatinine Urine Total Protein Fluid Total Protein Vancomycin Trough Rheumatoid Factor Complement C4 Miscellaneous Test Crossmatch See Detail 11/07/16 11/07/16 11/07/16 12:52 18:51 21:26 WBC RBC Hgb Hct MCV MCH MCHC RDW Plt Count Lymph % (Auto) Wilkin % (Auto) Lymph # [place] # Baso # Seg Neutrophils % Seg Neuts % (Manual) Lymphocytes % (Manual) Monocytes % (Manual) Eosinophils % (Manual) Basophils % (Manual) Nucleated RBC % Seg Neutrophils # Seg Neutrophils # Man Lymphocytes # (Manual) Monocytes # (Manual) Eosinophils # (Manual) Basophils # (Manual) PT INR Fibrinogen dRVVT Confirm Interp Factor V Activity POC ABG pH 7.523 H POC ABG pCO2 34.6 L POC ABG pO2 53 L ABG pO2 ABG HCO3 ABG Base Excess ABG Hemoglobin Oxyhemoglobin Sodium Potassium Chloride Carbon Dioxide BUN Creatinine Glucose POC Glucose 142 H 155 H Lactic Acid Calcium Phosphorus Magnesium Direct Bilirubin AST ALT Alkaline Phosphatase Lactate Dehydrogenase Troponin T C-Reactive Protein Total Protein Albumin Prealbumin Triglycerides Cholesterol LDL Cholesterol Direct HDL Cholesterol Urine pH Urine WBC (Auto) Urine Creatinine Urine Total Protein Fluid Total Protein Vancomycin Trough Rheumatoid Factor Complement C4 Miscellaneous Test Crossmatch 11/07/16 11/08/16 11/08/16 21:34 13:03 23:37 WBC RBC 2.63 L Hgb 7.7 L Hct 22.7 L MCV MCH MCHC RDW 17.0 H Plt Count Lymph % (Auto) [place] % (Auto) Lymph # [place] # Baso # Seg Neutrophils % Seg Neuts % (Manual) Lymphocytes % (Manual) Monocytes % (Manual) Eosinophils % (Manual) Basophils % (Manual) Nucleated RBC % Seg Neutrophils # Seg Neutrophils # Man Lymphocytes # (Manual) Monocytes # (Manual) Eosinophils # (Manual) Basophils # (Manual) PT INR Fibrinogen dRVVT Confirm Interp Factor V Activity POC ABG pH 7.478 H POC ABG pCO2 34.0 L POC ABG pO2 50 L ABG pO2 ABG HCO3 ABG Base Excess ABG Hemoglobin Oxyhemoglobin Sodium Potassium Chloride Carbon Dioxide BUN Creatinine Glucose POC Glucose 113 H Lactic Acid Calcium Phosphorus Magnesium Direct Bilirubin AST ALT Alkaline Phosphatase Lactate Dehydrogenase Troponin T C-Reactive Protein Total Protein Albumin Prealbumin Triglycerides Cholesterol LDL Cholesterol Direct HDL Cholesterol Urine pH Urine WBC (Auto) Urine Creatinine Urine Total Protein Fluid Total Protein Vancomycin Trough Rheumatoid Factor Complement C4 Miscellaneous Test Crossmatch 11/09/16 11/09/16 11/09/16 04:35 10:15 18:21 WBC RBC 2.68 L Hgb 7.8 L Hct 23.3 L MCV MCH MCHC RDW 17.0 H Plt Count Lymph % (Auto) [place]kin % (Auto) 12.1 H Lymph # [place]kin # 1.1 H Baso # Seg Neutrophils % Seg Neuts % (Manual) Lymphocytes % (Manual) Monocytes % (Manual) Eosinophils % (Manual) Basophils % (Manual) Nucleated RBC % Seg Neutrophils # Seg Neutrophils # Man Lymphocytes # (Manual) Monocytes # (Manual) Eosinophils # (Manual) Basophils # (Manual) PT INR Fibrinogen dRVVT Confirm Interp Factor V Activity POC ABG pH POC ABG pCO2 POC ABG pO2 ABG pO2 ABG HCO3 ABG Base Excess ABG Hemoglobin Oxyhemoglobin Sodium Potassium Chloride Carbon Dioxide BUN 51 H Creatinine 1.8 H Glucose POC Glucose 60 L Lactic Acid Calcium 8.3 L Phosphorus Magnesium Direct Bilirubin AST ALT Alkaline Phosphatase Lactate Dehydrogenase Troponin T C-Reactive Protein Total Protein Albumin Prealbumin Triglycerides Cholesterol LDL Cholesterol Direct HDL Cholesterol Urine pH Urine WBC (Auto) Urine Creatinine Urine Total Protein Fluid Total Protein Vancomycin Trough Rheumatoid Factor Complement C4 Miscellaneous Test Crossmatch 11/09/16 11/10/16 11/10/16 18:55 07:00 11:51 WBC RBC Hgb Hct MCV MCH MCHC RDW Plt Count Lymph % (Auto) [place] % (Auto) Lymph # [place] # Baso # Seg Neutrophils % Seg Neuts % (Manual) Lymphocytes % (Manual) Monocytes % (Manual) Eosinophils % (Manual) Basophils % (Manual) Nucleated RBC % Seg Neutrophils # Seg Neutrophils # Man Lymphocytes # (Manual) Monocytes # (Manual) Eosinophils # (Manual) Basophils # (Manual) PT INR Fibrinogen dRVVT Confirm Interp Factor V Activity POC ABG pH POC ABG pCO2 POC ABG pO2 ABG pO2 ABG HCO3 ABG Base Excess ABG Hemoglobin Oxyhemoglobin Sodium Potassium 3.0 L D Chloride 97.4 L Carbon Dioxide BUN 28 H Creatinine 1.3 H Glucose POC Glucose 68 L 120 H Lactic Acid Calcium 7.8 L Phosphorus Magnesium Direct Bilirubin AST ALT Alkaline Phosphatase Lactate Dehydrogenase Troponin T C-Reactive Protein Total Protein Albumin Prealbumin Triglycerides Cholesterol LDL Cholesterol Direct HDL Cholesterol Urine pH Urine WBC (Auto) Urine Creatinine Urine Total Protein Fluid Total Protein Vancomycin Trough Rheumatoid Factor Complement C4 Miscellaneous Test Crossmatch 11/10/16 11/11/16 11/11/16 14:20 06:59 06:59 WBC RBC 2.81 L Hgb 8.1 L Hct 24.4 L MCV MCH MCHC RDW 16.4 H Plt Count Lymph % (Auto) [place] % (Auto) 10.8 H Lymph # [place] # 1.0 H Baso # Seg Neutrophils % Seg Neuts % (Manual) Lymphocytes % (Manual) Monocytes % (Manual) Eosinophils % (Manual) Basophils % (Manual) Nucleated RBC % Seg Neutrophils # Seg Neutrophils # Man Lymphocytes # (Manual) Monocytes # (Manual) Eosinophils # (Manual) Basophils # (Manual) PT INR Fibrinogen dRVVT Confirm Interp Factor V Activity POC ABG pH POC ABG pCO2 POC ABG pO2 ABG pO2 ABG HCO3 ABG Base Excess ABG Hemoglobin Oxyhemoglobin Sodium Potassium Chloride Carbon Dioxide BUN Creatinine Glucose POC Glucose Lactic Acid Calcium Phosphorus Magnesium Direct Bilirubin AST ALT Alkaline Phosphatase Lactate Dehydrogenase 196 H Troponin T C-Reactive Protein Total Protein 6.1 L Albumin Prealbumin Triglycerides Cholesterol LDL Cholesterol Direct HDL Cholesterol Urine pH Urine WBC (Auto) Urine Creatinine Urine Total Protein Fluid Total Protein < 3.0 L Vancomycin Trough Rheumatoid Factor Complement C4 Miscellaneous Test Crossmatch 11/11/16 11/11/16 11/12/16 06:59 09:50 04:00 WBC RBC Hgb Hct MCV MCH MCHC RDW Plt Count Lymph % (Auto) [place] % (Auto) Lymph # [place] # Baso # Seg Neutrophils % Seg Neuts % (Manual) Lymphocytes % (Manual) Monocytes % (Manual) Eosinophils % (Manual) Basophils % (Manual) Nucleated RBC % Seg Neutrophils # Seg Neutrophils # Man Lymphocytes # (Manual) Monocytes # (Manual) Eosinophils # (Manual) Basophils # (Manual) PT INR 1.18 H Fibrinogen dRVVT Confirm Interp Factor V Activity POC ABG pH POC ABG pCO2 POC ABG pO2 ABG pO2 ABG HCO3 ABG Base Excess ABG Hemoglobin Oxyhemoglobin Sodium 136 L 133 L Potassium Chloride 96.1 L 94.8 L Carbon Dioxide 21 L BUN 37 H 42 H Creatinine 1.8 H 2.0 H Glucose POC Glucose Lactic Acid Calcium Phosphorus Magnesium Direct Bilirubin AST ALT Alkaline Phosphatase Lactate Dehydrogenase Troponin T C-Reactive Protein Total Protein Albumin Prealbumin Triglycerides Cholesterol LDL Cholesterol Direct HDL Cholesterol Urine pH Urine WBC (Auto) Urine Creatinine Urine Total Protein Fluid Total Protein Vancomycin Trough Rheumatoid Factor Complement C4 Miscellaneous Test Crossmatch 11/12/16 11/12/16 11/13/16 04:00 23:55 05:53 WBC RBC Hgb 8.9 L Hct 27.2 L MCV MCH MCHC RDW Plt Count Lymph % (Auto) [place] % (Auto) Lymph # [place] # Baso # Seg Neutrophils % Seg Neuts % (Manual) Lymphocytes % (Manual) Monocytes % (Manual) Eosinophils % (Manual) Basophils % (Manual) Nucleated RBC % Seg Neutrophils # Seg Neutrophils # Man Lymphocytes # (Manual) Monocytes # (Manual) Eosinophils # (Manual) Basophils # (Manual) PT INR Fibrinogen dRVVT Confirm Interp Factor V Activity POC ABG pH POC ABG pCO2 POC ABG pO2 ABG pO2 ABG HCO3 ABG Base Excess ABG Hemoglobin Oxyhemoglobin Sodium Potassium Chloride Carbon Dioxide BUN Creatinine Glucose POC Glucose 132 H 120 H Lactic Acid Calcium Phosphorus Magnesium Direct Bilirubin AST ALT Alkaline Phosphatase Lactate Dehydrogenase Troponin T C-Reactive Protein Total Protein Albumin Prealbumin Triglycerides Cholesterol LDL Cholesterol Direct HDL Cholesterol Urine pH Urine WBC (Auto) Urine Creatinine Urine Total Protein Fluid Total Protein Vancomycin Trough Rheumatoid Factor Complement C4 Miscellaneous Test Crossmatch 11/13/16 11/13/16 11/13/16 11:43 17:09 23:41 WBC RBC Hgb Hct MCV MCH MCHC RDW Plt Count Lymph % (Auto) [place] % (Auto) Lymph # [place] # Baso # Seg Neutrophils % Seg Neuts % (Manual) Lymphocytes % (Manual) Monocytes % (Manual) Eosinophils % (Manual) Basophils % (Manual) Nucleated RBC % Seg Neutrophils # Seg Neutrophils # Man Lymphocytes # (Manual) Monocytes # (Manual) Eosinophils # (Manual) Basophils # (Manual) PT INR Fibrinogen dRVVT Confirm Interp Factor V Activity POC ABG pH POC ABG pCO2 POC ABG pO2 ABG pO2 ABG HCO3 ABG Base Excess ABG Hemoglobin Oxyhemoglobin Sodium Potassium Chloride Carbon Dioxide BUN Creatinine Glucose POC Glucose 114 H 113 H 108 H Lactic Acid Calcium Phosphorus Magnesium Direct Bilirubin AST ALT Alkaline Phosphatase Lactate Dehydrogenase Troponin T C-Reactive Protein Total Protein Albumin Prealbumin Triglycerides Cholesterol LDL Cholesterol Direct HDL Cholesterol Urine pH Urine WBC (Auto) Urine Creatinine Urine Total Protein Fluid Total Protein Vancomycin Trough Rheumatoid Factor Complement C4 Miscellaneous Test Crossmatch 11/13/16 11/15/16 11/15/16 Unknown 00:37 03:30 WBC 11.2 H RBC 2.72 L Hgb 7.6 L Hct 23.4 L MCV MCH MCHC RDW 16.5 H Plt Count Lymph % (Auto) [place] % (Auto) Lymph # [place] # Baso # Seg Neutrophils % Seg Neuts % (Manual) Lymphocytes % (Manual) Monocytes % (Manual) Eosinophils % (Manual) Basophils % (Manual) Nucleated RBC % Seg Neutrophils # Seg Neutrophils # Man Lymphocytes # (Manual) Monocytes # (Manual) Eosinophils # (Manual) Basophils # (Manual) PT INR Fibrinogen dRVVT Confirm Interp Factor V Activity POC ABG pH POC ABG pCO2 POC ABG pO2 ABG pO2 ABG HCO3 ABG Base Excess ABG Hemoglobin Oxyhemoglobin Sodium 135 L Potassium Chloride 95.2 L Carbon Dioxide BUN 52 H Creatinine 2.2 H Glucose POC Glucose 108 H Lactic Acid Calcium Phosphorus Magnesium Direct Bilirubin AST ALT Alkaline Phosphatase Lactate Dehydrogenase Troponin T C-Reactive Protein Total Protein Albumin Prealbumin Triglycerides Cholesterol LDL Cholesterol Direct HDL Cholesterol Urine pH Urine WBC (Auto) Urine Creatinine Urine Total Protein Fluid Total Protein Vancomycin Trough Rheumatoid Factor Complement C4 Miscellaneous Test Crossmatch 11/15/16 11/15/16 11/15/16 03:30 05:04 11:50 WBC RBC Hgb Hct MCV MCH MCHC RDW Plt Count Lymph % (Auto) [place]kin % (Auto) Lymph # [place] # Baso # Seg Neutrophils % Seg Neuts % (Manual) Lymphocytes % (Manual) Monocytes % (Manual) Eosinophils % (Manual) Basophils % (Manual) Nucleated RBC % Seg Neutrophils # Seg Neutrophils # Man Lymphocytes # (Manual) Monocytes # (Manual) Eosinophils # (Manual) Basophils # (Manual) PT INR Fibrinogen dRVVT Confirm Interp Factor V Activity POC ABG pH POC ABG pCO2 POC ABG pO2 ABG pO2 ABG HCO3 ABG Base Excess ABG Hemoglobin Oxyhemoglobin Sodium Potassium 3.4 L Chloride Carbon Dioxide BUN 25 H Creatinine 1.5 H Glucose 103 H POC Glucose 121 H 144 H Lactic Acid Calcium Phosphorus Magnesium Direct Bilirubin AST ALT Alkaline Phosphatase Lactate Dehydrogenase Troponin T C-Reactive Protein Total Protein Albumin Prealbumin Triglycerides Cholesterol LDL Cholesterol Direct HDL Cholesterol Urine pH Urine WBC (Auto) Urine Creatinine Urine Total Protein Fluid Total Protein Vancomycin Trough Rheumatoid Factor Complement C4 Miscellaneous Test Crossmatch 11/15/16 11/15/16 11/16/16 21:28 23:20 11:44 WBC RBC Hgb Hct MCV MCH MCHC RDW Plt Count Lymph % (Auto) [place] % (Auto) Lymph # [place] # Baso # Seg Neutrophils % Seg Neuts % (Manual) Lymphocytes % (Manual) Monocytes % (Manual) Eosinophils % (Manual) Basophils % (Manual) Nucleated RBC % Seg Neutrophils # Seg Neutrophils # Man Lymphocytes # (Manual) Monocytes # (Manual) Eosinophils # (Manual) Basophils # (Manual) PT INR Fibrinogen dRVVT Confirm Interp Factor V Activity POC ABG pH 7.462 H POC ABG pCO2 POC ABG pO2 71 L ABG pO2 ABG HCO3 ABG Base Excess ABG Hemoglobin Oxyhemoglobin Sodium Potassium Chloride Carbon Dioxide BUN Creatinine Glucose POC Glucose 116 H 133 H Lactic Acid Calcium Phosphorus Magnesium Direct Bilirubin AST ALT Alkaline Phosphatase Lactate Dehydrogenase Troponin T C-Reactive Protein Total Protein Albumin Prealbumin Triglycerides Cholesterol LDL Cholesterol Direct HDL Cholesterol Urine pH Urine WBC (Auto) Urine Creatinine Urine Total Protein Fluid Total Protein Vancomycin Trough Rheumatoid Factor Complement C4 Miscellaneous Test Crossmatch 11/16/16 11/16/16 11/16/16 12:20 17:05 23:35 WBC 11.7 H RBC 2.73 L Hgb 7.6 L Hct 23.7 L MCV MCH MCHC RDW 16.6 H Plt Count Lymph % (Auto) [place] % (Auto) Lymph # [place] # Baso # Seg Neutrophils % Seg Neuts % (Manual) Lymphocytes % (Manual) Monocytes % (Manual) Eosinophils % (Manual) Basophils % (Manual) Nucleated RBC % Seg Neutrophils # Seg Neutrophils # Man Lymphocytes # (Manual) Monocytes # (Manual) Eosinophils # (Manual) Basophils # (Manual) PT INR Fibrinogen dRVVT Confirm Interp Factor V Activity POC ABG pH POC ABG pCO2 POC ABG pO2 ABG pO2 ABG HCO3 ABG Base Excess ABG Hemoglobin Oxyhemoglobin Sodium Potassium Chloride Carbon Dioxide BUN Creatinine Glucose POC Glucose 154 H 125 H Lactic Acid Calcium Phosphorus Magnesium Direct Bilirubin AST ALT Alkaline Phosphatase Lactate Dehydrogenase Troponin T C-Reactive Protein Total Protein Albumin Prealbumin Triglycerides Cholesterol LDL Cholesterol Direct HDL Cholesterol Urine pH Urine WBC (Auto) Urine Creatinine Urine Total Protein Fluid Total Protein Vancomycin Trough Rheumatoid Factor Complement C4 Miscellaneous Test Crossmatch 11/17/16 11/17/16 11/17/16 03:20 03:20 03:20 WBC RBC 2.55 L Hgb 7.3 L Hct 21.9 L MCV MCH MCHC RDW 16.6 H Plt Count Lymph % (Auto) [place] % (Auto) 11.5 H Lymph # [place] # 1.1 H Baso # Seg Neutrophils % Seg Neuts % (Manual) Lymphocytes % (Manual) Monocytes % (Manual) Eosinophils % (Manual) Basophils % (Manual) Nucleated RBC % Seg Neutrophils # Seg Neutrophils # Man Lymphocytes # (Manual) Monocytes # (Manual) Eosinophils # (Manual) Basophils # (Manual) PT 16.8 H INR 1.37 H Fibrinogen dRVVT Confirm Interp Factor V Activity POC ABG pH POC ABG pCO2 POC ABG pO2 ABG pO2 ABG HCO3 ABG Base Excess ABG Hemoglobin Oxyhemoglobin Sodium Potassium 3.5 L Chloride Carbon Dioxide BUN 21 H Creatinine Glucose POC Glucose Lactic Acid Calcium 7.9 L Phosphorus Magnesium Direct Bilirubin AST ALT Alkaline Phosphatase Lactate Dehydrogenase Troponin T C-Reactive Protein Total Protein Albumin Prealbumin Triglycerides Cholesterol LDL Cholesterol Direct HDL Cholesterol Urine pH Urine WBC (Auto) Urine Creatinine Urine Total Protein Fluid Total Protein Vancomycin Trough Rheumatoid Factor Complement C4 Miscellaneous Test Crossmatch 11/17/16 11/17/16 11/17/16 06:34 11:21 21:22 WBC RBC Hgb Hct MCV MCH MCHC RDW Plt Count Lymph % (Auto) [place] % (Auto) Lymph # [place] # Baso # Seg Neutrophils % Seg Neuts % (Manual) Lymphocytes % (Manual) Monocytes % (Manual) Eosinophils % (Manual) Basophils % (Manual) Nucleated RBC % Seg Neutrophils # Seg Neutrophils # Man Lymphocytes # (Manual) Monocytes # (Manual) Eosinophils # (Manual) Basophils # (Manual) PT INR Fibrinogen dRVVT Confirm Interp Factor V Activity POC ABG pH 7.467 H POC ABG pCO2 POC ABG pO2 73 L ABG pO2 ABG HCO3 ABG Base Excess ABG Hemoglobin Oxyhemoglobin Sodium Potassium Chloride Carbon Dioxide BUN Creatinine Glucose POC Glucose 121 H 119 H Lactic Acid Calcium Phosphorus Magnesium Direct Bilirubin AST ALT Alkaline Phosphatase Lactate Dehydrogenase Troponin T C-Reactive Protein Total Protein Albumin Prealbumin Triglycerides Cholesterol LDL Cholesterol Direct HDL Cholesterol Urine pH Urine WBC (Auto) Urine Creatinine Urine Total Protein Fluid Total Protein Vancomycin Trough Rheumatoid Factor Complement C4 Miscellaneous Test Crossmatch 11/18/16 11/18/16 11/19/16 12:16 17:19 00:00 WBC RBC Hgb Hct MCV MCH MCHC RDW Plt Count Lymph % (Auto) [place] % (Auto) Lymph # [place] # Baso # Seg Neutrophils % Seg Neuts % (Manual) Lymphocytes % (Manual) Monocytes % (Manual) Eosinophils % (Manual) Basophils % (Manual) Nucleated RBC % Seg Neutrophils # Seg Neutrophils # Man Lymphocytes # (Manual) Monocytes # (Manual) Eosinophils # (Manual) Basophils # (Manual) PT INR Fibrinogen dRVVT Confirm Interp Factor V Activity POC ABG pH POC ABG pCO2 POC ABG pO2 ABG pO2 ABG HCO3 ABG Base Excess ABG Hemoglobin Oxyhemoglobin Sodium Potassium Chloride Carbon Dioxide BUN Creatinine Glucose POC Glucose 124 H 162 H 139 H Lactic Acid Calcium Phosphorus Magnesium Direct Bilirubin AST ALT Alkaline Phosphatase Lactate Dehydrogenase Troponin T C-Reactive Protein Total Protein Albumin Prealbumin Triglycerides Cholesterol LDL Cholesterol Direct HDL Cholesterol Urine pH Urine WBC (Auto) Urine Creatinine Urine Total Protein Fluid Total Protein Vancomycin Trough Rheumatoid Factor Complement C4 Miscellaneous Test Crossmatch 11/19/16 11/19/16 11/20/16 05:00 12:43 00:40 WBC RBC Hgb Hct MCV MCH MCHC RDW Plt Count Lymph % (Auto) [place] % (Auto) Lymph # [place] # Baso # Seg Neutrophils % Seg Neuts % (Manual) Lymphocytes % (Manual) Monocytes % (Manual) Eosinophils % (Manual) Basophils % (Manual) Nucleated RBC % Seg Neutrophils # Seg Neutrophils # Man Lymphocytes # (Manual) Monocytes # (Manual) Eosinophils # (Manual) Basophils # (Manual) PT INR Fibrinogen dRVVT Confirm Interp Factor V Activity POC ABG pH POC ABG pCO2 POC ABG pO2 ABG pO2 ABG HCO3 ABG Base Excess ABG Hemoglobin Oxyhemoglobin Sodium Potassium Chloride Carbon Dioxide BUN Creatinine Glucose POC Glucose 110 H 125 H 136 H Lactic Acid Calcium Phosphorus Magnesium Direct Bilirubin AST ALT Alkaline Phosphatase Lactate Dehydrogenase Troponin T C-Reactive Protein Total Protein Albumin Prealbumin Triglycerides Cholesterol LDL Cholesterol Direct HDL Cholesterol Urine pH Urine WBC (Auto) Urine Creatinine Urine Total Protein Fluid Total Protein Vancomycin Trough Rheumatoid Factor Complement C4 Miscellaneous Test Crossmatch 11/20/16 11/20/16 11/20/16 05:00 05:00 05:51 WBC 13.1 H RBC 2.74 L Hgb 7.7 L Hct 23.6 L MCV MCH MCHC RDW 16.9 H Plt Count Lymph % (Auto) [place] % (Auto) 10.8 H Lymph # [place] # 1.4 H Baso # Seg Neutrophils % Seg Neuts % (Manual) Lymphocytes % (Manual) Monocytes % (Manual) Eosinophils % (Manual) Basophils % (Manual) Nucleated RBC % Seg Neutrophils # 7.9 H Seg Neutrophils # Man Lymphocytes # (Manual) Monocytes # (Manual) Eosinophils # (Manual) Basophils # (Manual) PT INR Fibrinogen dRVVT Confirm Interp Factor V Activity POC ABG pH POC ABG pCO2 POC ABG pO2 ABG pO2 ABG HCO3 ABG Base Excess ABG Hemoglobin Oxyhemoglobin Sodium Potassium Chloride Carbon Dioxide BUN 31 H Creatinine 1.8 H Glucose 129 H POC Glucose 133 H Lactic Acid Calcium Phosphorus Magnesium Direct Bilirubin AST ALT Alkaline Phosphatase Lactate Dehydrogenase Troponin T C-Reactive Protein Total Protein Albumin Prealbumin Triglycerides Cholesterol LDL Cholesterol Direct HDL Cholesterol Urine pH Urine WBC (Auto) Urine Creatinine Urine Total Protein Fluid Total Protein Vancomycin Trough Rheumatoid Factor Complement C4 Miscellaneous Test Crossmatch 11/20/16 11/20/16 11/21/16 12:40 18:10 01:20 WBC RBC Hgb Hct MCV MCH MCHC RDW Plt Count Lymph % (Auto) [place] % (Auto) Lymph # [place] # Baso # Seg Neutrophils % Seg Neuts % (Manual) Lymphocytes % (Manual) Monocytes % (Manual) Eosinophils % (Manual) Basophils % (Manual) Nucleated RBC % Seg Neutrophils # Seg Neutrophils # Man Lymphocytes # (Manual) Monocytes # (Manual) Eosinophils # (Manual) Basophils # (Manual) PT INR Fibrinogen dRVVT Confirm Interp Factor V Activity POC ABG pH POC ABG pCO2 POC ABG pO2 ABG pO2 ABG HCO3 ABG Base Excess ABG Hemoglobin Oxyhemoglobin Sodium Potassium Chloride Carbon Dioxide BUN Creatinine Glucose POC Glucose 134 H 138 H 136 H Lactic Acid Calcium Phosphorus Magnesium Direct Bilirubin AST ALT Alkaline Phosphatase Lactate Dehydrogenase Troponin T C-Reactive Protein Total Protein Albumin Prealbumin Triglycerides Cholesterol LDL Cholesterol Direct HDL Cholesterol Urine pH Urine WBC (Auto) Urine Creatinine Urine Total Protein Fluid Total Protein Vancomycin Trough Rheumatoid Factor Complement C4 Miscellaneous Test Crossmatch 11/21/16 11/21/16 11/21/16 07:04 07:45 07:45 WBC 22.0 H RBC 2.91 L Hgb 8.2 L Hct 25.4 L MCV MCH MCHC RDW 17.1 H Plt Count Lymph % (Auto) [place] % (Auto) Lymph # [place] # Baso # Seg Neutrophils % Seg Neuts % (Manual) Lymphocytes % (Manual) 8.0 L Monocytes % (Manual) Eosinophils % (Manual) Basophils % (Manual) Nucleated RBC % Seg Neutrophils # Seg Neutrophils # Man 14.7 H Lymphocytes # (Manual) Monocytes # (Manual) 1.1 H Eosinophils # (Manual) Basophils # (Manual) PT INR Fibrinogen dRVVT Confirm Interp Factor V Activity POC ABG pH POC ABG pCO2 POC ABG pO2 ABG pO2 ABG HCO3 ABG Base Excess ABG Hemoglobin Oxyhemoglobin Sodium Potassium Chloride Carbon Dioxide BUN 42 H Creatinine 2.0 H Glucose POC Glucose 108 H Lactic Acid Calcium Phosphorus Magnesium Direct Bilirubin AST ALT Alkaline Phosphatase Lactate Dehydrogenase Troponin T C-Reactive Protein Total Protein Albumin Prealbumin Triglycerides Cholesterol LDL Cholesterol Direct HDL Cholesterol Urine pH Urine WBC (Auto) Urine Creatinine Urine Total Protein Fluid Total Protein Vancomycin Trough Rheumatoid Factor Complement C4 Miscellaneous Test Crossmatch 11/21/16 11/21/16 11/21/16 08:38 10:09 11:20 WBC RBC Hgb Hct MCV MCH MCHC RDW Plt Count Lymph % (Auto) [place] % (Auto) Lymph # [place] # Baso # Seg Neutrophils % Seg Neuts % (Manual) Lymphocytes % (Manual) Monocytes % (Manual) Eosinophils % (Manual) Basophils % (Manual) Nucleated RBC % Seg Neutrophils # Seg Neutrophils # Man Lymphocytes # (Manual) Monocytes # (Manual) Eosinophils # (Manual) Basophils # (Manual) PT INR Fibrinogen dRVVT Confirm Interp Factor V Activity POC ABG pH 7.346 L POC ABG pCO2 34.4 L POC ABG pO2 314 H ABG pO2 ABG HCO3 ABG Base Excess ABG Hemoglobin Oxyhemoglobin Sodium Potassium Chloride Carbon Dioxide BUN Creatinine Glucose POC Glucose 195 H 153 H Lactic Acid Calcium Phosphorus Magnesium Direct Bilirubin AST ALT Alkaline Phosphatase Lactate Dehydrogenase Troponin T C-Reactive Protein Total Protein Albumin Prealbumin Triglycerides Cholesterol LDL Cholesterol Direct HDL Cholesterol Urine pH Urine WBC (Auto) Urine Creatinine Urine Total Protein Fluid Total Protein Vancomycin Trough Rheumatoid Factor Complement C4 Miscellaneous Test Crossmatch 11/21/16 11/22/16 11/22/16 23:37 04:48 05:00 WBC 29.7 H RBC 2.73 L Hgb 7.5 L Hct 24.2 L MCV MCH 27 L MCHC RDW 17.4 H Plt Count Lymph % (Auto) [place] % (Auto) Lymph # [place] # Baso # Seg Neutrophils % Seg Neuts % (Manual) Lymphocytes % (Manual) 7.0 L Monocytes % (Manual) Eosinophils % (Manual) Basophils % (Manual) Nucleated RBC % Seg Neutrophils # Seg Neutrophils # Man 15.4 H Lymphocytes # (Manual) Monocytes # (Manual) Eosinophils # (Manual) Basophils # (Manual) PT INR Fibrinogen dRVVT Confirm Interp Factor V Activity POC ABG pH POC ABG pCO2 24.6 L POC ABG pO2 189 H ABG pO2 ABG HCO3 ABG Base Excess ABG Hemoglobin Oxyhemoglobin Sodium Potassium Chloride Carbon Dioxide BUN Creatinine Glucose POC Glucose 65 L Lactic Acid Calcium Phosphorus Magnesium Direct Bilirubin AST ALT Alkaline Phosphatase Lactate Dehydrogenase Troponin T C-Reactive Protein Total Protein Albumin Prealbumin Triglycerides Cholesterol LDL Cholesterol Direct HDL Cholesterol Urine pH Urine WBC (Auto) Urine Creatinine Urine Total Protein Fluid Total Protein Vancomycin Trough Rheumatoid Factor Complement C4 Miscellaneous Test Crossmatch 11/22/16 11/23/16 11/23/16 05:00 03:44 04:06 WBC RBC 2.52 L Hgb 7.2 L Hct 21.5 L MCV MCH MCHC RDW 17.1 H Plt Count Lymph % (Auto) [place] % (Auto) 12.4 H Lymph # [place] # 1.4 H Baso # Seg Neutrophils % Seg Neuts % (Manual) Lymphocytes % (Manual) Monocytes % (Manual) Eosinophils % (Manual) Basophils % (Manual) Nucleated RBC % Seg Neutrophils # Seg Neutrophils # Man Lymphocytes # (Manual) Monocytes # (Manual) Eosinophils # (Manual) Basophils # (Manual) PT INR Fibrinogen dRVVT Confirm Interp Factor V Activity POC ABG pH 7.493 H POC ABG pCO2 29.5 L POC ABG pO2 49 L ABG pO2 ABG HCO3 ABG Base Excess ABG Hemoglobin Oxyhemoglobin Sodium 134 L Potassium Chloride 95.9 L Carbon Dioxide 14 L D BUN 51 H Creatinine 2.6 H Glucose POC Glucose Lactic Acid Calcium Phosphorus Magnesium Direct Bilirubin AST ALT Alkaline Phosphatase Lactate Dehydrogenase Troponin T C-Reactive Protein Total Protein Albumin Prealbumin Triglycerides Cholesterol LDL Cholesterol Direct HDL Cholesterol Urine pH Urine WBC (Auto) Urine Creatinine Urine Total Protein Fluid Total Protein Vancomycin Trough Rheumatoid Factor Complement C4 Miscellaneous Test Crossmatch 11/23/16 11/23/16 11/24/16 04:06 11:29 06:39 WBC RBC Hgb Hct MCV MCH MCHC RDW Plt Count Lymph % (Auto) [place] % (Auto) Lymph # [place] # Baso # Seg Neutrophils % Seg Neuts % (Manual) Lymphocytes % (Manual) Monocytes % (Manual) Eosinophils % (Manual) Basophils % (Manual) Nucleated RBC % Seg Neutrophils # Seg Neutrophils # Man Lymphocytes # (Manual) Monocytes # (Manual) Eosinophils # (Manual) Basophils # (Manual) PT INR Fibrinogen dRVVT Confirm Interp Factor V Activity POC ABG pH POC ABG pCO2 POC ABG pO2 ABG pO2 ABG HCO3 ABG Base Excess ABG Hemoglobin Oxyhemoglobin Sodium 136 L Potassium Chloride 95.2 L Carbon Dioxide BUN 60 H Creatinine 2.9 H Glucose POC Glucose 69 L 305 H Lactic Acid Calcium Phosphorus Magnesium 1.60 L Direct Bilirubin AST ALT Alkaline Phosphatase Lactate Dehydrogenase Troponin T C-Reactive Protein Total Protein Albumin Prealbumin Triglycerides Cholesterol LDL Cholesterol Direct HDL Cholesterol Urine pH Urine WBC (Auto) Urine Creatinine Urine Total Protein Fluid Total Protein Vancomycin Trough Rheumatoid Factor Complement C4 Miscellaneous Test Crossmatch 11/24/16 11/24/16 11/24/16 06:43 08:08 08:08 WBC 11.2 H RBC 2.47 L Hgb 6.8 L Hct 20.6 L MCV MCH MCHC RDW 17.0 H Plt Count Lymph % (Auto) [place] % (Auto) 10.3 H Lymph # [place] # 1.2 H Baso # Seg Neutrophils % Seg Neuts % (Manual) Lymphocytes % (Manual) Monocytes % (Manual) Eosinophils % (Manual) Basophils % (Manual) Nucleated RBC % Seg Neutrophils # Seg Neutrophils # Man Lymphocytes # (Manual) Monocytes # (Manual) Eosinophils # (Manual) Basophils # (Manual) PT INR Fibrinogen dRVVT Confirm Interp Factor V Activity POC ABG pH POC ABG pCO2 POC ABG pO2 ABG pO2 ABG HCO3 ABG Base Excess ABG Hemoglobin Oxyhemoglobin Sodium 135 L Potassium Chloride 96.3 L Carbon Dioxide BUN 61 H Creatinine 3.1 H Glucose POC Glucose 62 L Lactic Acid Calcium 8.2 L Phosphorus Magnesium Direct Bilirubin AST ALT Alkaline Phosphatase Lactate Dehydrogenase Troponin T C-Reactive Protein Total Protein Albumin Prealbumin Triglycerides Cholesterol LDL Cholesterol Direct HDL Cholesterol Urine pH Urine WBC (Auto) Urine Creatinine Urine Total Protein Fluid Total Protein Vancomycin Trough Rheumatoid Factor Complement C4 Miscellaneous Test Crossmatch 11/24/16 11/24/16 11/24/16 08:34 11:20 12:41 WBC RBC Hgb Hct MCV MCH MCHC RDW Plt Count Lymph % (Auto) [place] % (Auto) Lymph # [place] # Baso # Seg Neutrophils % Seg Neuts % (Manual) Lymphocytes % (Manual) Monocytes % (Manual) Eosinophils % (Manual) Basophils % (Manual) Nucleated RBC % Seg Neutrophils # Seg Neutrophils # Man Lymphocytes # (Manual) Monocytes # (Manual) Eosinophils # (Manual) Basophils # (Manual) PT INR Fibrinogen dRVVT Confirm Interp Factor V Activity POC ABG pH POC ABG pCO2 POC ABG pO2 ABG pO2 ABG HCO3 ABG Base Excess ABG Hemoglobin Oxyhemoglobin Sodium Potassium Chloride Carbon Dioxide BUN Creatinine Glucose POC Glucose 108 H Lactic Acid Calcium Phosphorus Magnesium 1.60 L Direct Bilirubin AST ALT Alkaline Phosphatase Lactate Dehydrogenase Troponin T C-Reactive Protein Total Protein Albumin Prealbumin Triglycerides Cholesterol LDL Cholesterol Direct HDL Cholesterol Urine pH Urine WBC (Auto) Urine Creatinine Urine Total Protein Fluid Total Protein Vancomycin Trough Rheumatoid Factor Complement C4 Miscellaneous Test Crossmatch See Detail 11/25/16 11/25/16 11/25/16 00:03 04:42 04:42 WBC RBC 3.03 L Hgb 8.6 L Hct 25.3 L MCV MCH MCHC RDW 16.2 H Plt Count Lymph % (Auto) [place] % (Auto) 8.1 H Lymph # [place] # Baso # Seg Neutrophils % 71.3 H Seg Neuts % (Manual) Lymphocytes % (Manual) Monocytes % (Manual) Eosinophils % (Manual) Basophils % (Manual) Nucleated RBC % Seg Neutrophils # Seg Neutrophils # Man Lymphocytes # (Manual) Monocytes # (Manual) Eosinophils # (Manual) Basophils # (Manual) PT INR Fibrinogen dRVVT Confirm Interp Factor V Activity POC ABG pH POC ABG pCO2 POC ABG pO2 ABG pO2 ABG HCO3 ABG Base Excess ABG Hemoglobin Oxyhemoglobin Sodium Potassium Chloride Carbon Dioxide BUN 61 H Creatinine 3.0 H Glucose 102 H POC Glucose 113 H Lactic Acid Calcium 8.2 L Phosphorus Magnesium Direct Bilirubin AST ALT Alkaline Phosphatase 142 H Lactate Dehydrogenase Troponin T C-Reactive Protein Total Protein 5.7 L Albumin 1.5 L Prealbumin Triglycerides Cholesterol LDL Cholesterol Direct HDL Cholesterol Urine pH Urine WBC (Auto) Urine Creatinine Urine Total Protein Fluid Total Protein Vancomycin Trough Rheumatoid Factor Complement C4 Miscellaneous Test Crossmatch 11/25/16 11/25/16 11/25/16 05:12 11:31 14:12 WBC RBC Hgb Hct MCV MCH MCHC RDW Plt Count Lymph % (Auto) [place] % (Auto) Lymph # [place] # Baso # Seg Neutrophils % Seg Neuts % (Manual) Lymphocytes % (Manual) Monocytes % (Manual) Eosinophils % (Manual) Basophils % (Manual) Nucleated RBC % Seg Neutrophils # Seg Neutrophils # Man Lymphocytes # (Manual) Monocytes # (Manual) Eosinophils # (Manual) Basophils # (Manual) PT INR Fibrinogen dRVVT Confirm Interp Factor V Activity POC ABG pH 7.487 H POC ABG pCO2 POC ABG pO2 153 H ABG pO2 ABG HCO3 ABG Base Excess ABG Hemoglobin Oxyhemoglobin Sodium Potassium Chloride Carbon Dioxide BUN Creatinine Glucose POC Glucose 131 H 140 H Lactic Acid Calcium Phosphorus Magnesium Direct Bilirubin AST ALT Alkaline Phosphatase Lactate Dehydrogenase Troponin T C-Reactive Protein Total Protein Albumin Prealbumin Triglycerides Cholesterol LDL Cholesterol Direct HDL Cholesterol Urine pH Urine WBC (Auto) Urine Creatinine Urine Total Protein Fluid Total Protein Vancomycin Trough Rheumatoid Factor Complement C4 Miscellaneous Test Crossmatch 11/25/16 11/26/16 11/26/16 17:23 00:09 05:13 WBC RBC 2.94 L Hgb 8.4 L Hct 24.6 L MCV MCH MCHC RDW 16.4 H Plt Count Lymph % (Auto) [place] % (Auto) 12.3 H Lymph # [place] # 1.1 H Baso # Seg Neutrophils % Seg Neuts % (Manual) Lymphocytes % (Manual) Monocytes % (Manual) Eosinophils % (Manual) Basophils % (Manual) Nucleated RBC % Seg Neutrophils # Seg Neutrophils # Man Lymphocytes # (Manual) Monocytes # (Manual) Eosinophils # (Manual) Basophils # (Manual) PT INR Fibrinogen dRVVT Confirm Interp Factor V Activity POC ABG pH POC ABG pCO2 POC ABG pO2 ABG pO2 ABG HCO3 ABG Base Excess ABG Hemoglobin Oxyhemoglobin Sodium Potassium Chloride Carbon Dioxide BUN Creatinine Glucose POC Glucose 146 H 112 H Lactic Acid Calcium Phosphorus Magnesium Direct Bilirubin AST ALT Alkaline Phosphatase Lactate Dehydrogenase Troponin T C-Reactive Protein Total Protein Albumin Prealbumin Triglycerides Cholesterol LDL Cholesterol Direct HDL Cholesterol Urine pH Urine WBC (Auto) Urine Creatinine Urine Total Protein Fluid Total Protein Vancomycin Trough Rheumatoid Factor Complement C4 Miscellaneous Test Crossmatch 11/26/16 11/26/16 11/26/16 05:13 05:28 11:53 WBC RBC Hgb Hct MCV MCH MCHC RDW Plt Count Lymph % (Auto) [place] % (Auto) Lymph # [place] # Baso # Seg Neutrophils % Seg Neuts % (Manual) Lymphocytes % (Manual) Monocytes % (Manual) Eosinophils % (Manual) Basophils % (Manual) Nucleated RBC % Seg Neutrophils # Seg Neutrophils # Man Lymphocytes # (Manual) Monocytes # (Manual) Eosinophils # (Manual) Basophils # (Manual) PT INR Fibrinogen dRVVT Confirm Interp Factor V Activity POC ABG pH POC ABG pCO2 POC ABG pO2 ABG pO2 ABG HCO3 ABG Base Excess ABG Hemoglobin Oxyhemoglobin Sodium Potassium Chloride 97.8 L Carbon Dioxide BUN 37 H Creatinine 2.0 H Glucose 109 H POC Glucose 117 H 111 H Lactic Acid Calcium 7.9 L Phosphorus 1.80 L D Magnesium Direct Bilirubin AST ALT Alkaline Phosphatase Lactate Dehydrogenase Troponin T C-Reactive Protein Total Protein Albumin Prealbumin Triglycerides Cholesterol LDL Cholesterol Direct HDL Cholesterol Urine pH Urine WBC (Auto) Urine Creatinine Urine Total Protein Fluid Total Protein Vancomycin Trough Rheumatoid Factor Complement C4 Miscellaneous Test Crossmatch 11/26/16 11/27/16 11/27/16 17:14 04:50 06:02 WBC RBC Hgb Hct MCV MCH MCHC RDW Plt Count Lymph % (Auto) [place] % (Auto) Lymph # [place] # Baso # Seg Neutrophils % Seg Neuts % (Manual) Lymphocytes % (Manual) Monocytes % (Manual) Eosinophils % (Manual) Basophils % (Manual) Nucleated RBC % Seg Neutrophils # Seg Neutrophils # Man Lymphocytes # (Manual) Monocytes # (Manual) Eosinophils # (Manual) Basophils # (Manual) PT INR Fibrinogen dRVVT Confirm Interp Factor V Activity POC ABG pH POC ABG pCO2 POC ABG pO2 ABG pO2 75.2 L ABG HCO3 26.4 H ABG Base Excess ABG Hemoglobin 7.6 L Oxyhemoglobin 94.8 L Sodium Potassium Chloride Carbon Dioxide BUN 49 H Creatinine 2.3 H Glucose POC Glucose 115 H Lactic Acid Calcium Phosphorus 1.50 L Magnesium Direct Bilirubin AST ALT Alkaline Phosphatase Lactate Dehydrogenase Troponin T C-Reactive Protein Total Protein Albumin Prealbumin Triglycerides Cholesterol LDL Cholesterol Direct HDL Cholesterol Urine pH Urine WBC (Auto) Urine Creatinine Urine Total Protein Fluid Total Protein Vancomycin Trough Rheumatoid Factor Complement C4 Miscellaneous Test Crossmatch 11/27/16 11/27/16 11/27/16 06:02 11:25 17:25 WBC 11.6 H RBC 2.75 L Hgb 7.6 L Hct 23.4 L MCV MCH MCHC RDW 16.5 H Plt Count Lymph % (Auto) [place] % (Auto) Lymph # [place] # Baso # Seg Neutrophils % Seg Neuts % (Manual) Lymphocytes % (Manual) Monocytes % (Manual) Eosinophils % (Manual) Basophils % (Manual) Nucleated RBC % Seg Neutrophils # Seg Neutrophils # Man Lymphocytes # (Manual) Monocytes # (Manual) Eosinophils # (Manual) Basophils # (Manual) PT INR Fibrinogen dRVVT Confirm Interp Factor V Activity POC ABG pH POC ABG pCO2 POC ABG pO2 ABG pO2 ABG HCO3 ABG Base Excess ABG Hemoglobin Oxyhemoglobin Sodium Potassium Chloride Carbon Dioxide BUN Creatinine Glucose POC Glucose 114 H 126 H Lactic Acid Calcium Phosphorus Magnesium Direct Bilirubin AST ALT Alkaline Phosphatase Lactate Dehydrogenase Troponin T C-Reactive Protein Total Protein Albumin Prealbumin Triglycerides Cholesterol LDL Cholesterol Direct HDL Cholesterol Urine pH Urine WBC (Auto) Urine Creatinine Urine Total Protein Fluid Total Protein Vancomycin Trough Rheumatoid Factor Complement C4 Miscellaneous Test Crossmatch 11/28/16 11/28/16 11/28/16 04:45 05:33 05:44 WBC RBC Hgb Hct MCV MCH MCHC RDW Plt Count Lymph % (Auto) [place] % (Auto) Lymph # [place] # Baso # Seg Neutrophils % Seg Neuts % (Manual) Lymphocytes % (Manual) Monocytes % (Manual) Eosinophils % (Manual) Basophils % (Manual) Nucleated RBC % Seg Neutrophils # Seg Neutrophils # Man Lymphocytes # (Manual) Monocytes # (Manual) Eosinophils # (Manual) Basophils # (Manual) PT INR Fibrinogen dRVVT Confirm Interp Factor V Activity POC ABG pH POC ABG pCO2 POC ABG pO2 ABG pO2 99.3 H ABG HCO3 ABG Base Excess ABG Hemoglobin 8.3 L Oxyhemoglobin Sodium Potassium Chloride Carbon Dioxide BUN 63 H Creatinine 2.4 H Glucose 102 H POC Glucose 108 H Lactic Acid Calcium Phosphorus 1.80 L Magnesium Direct Bilirubin AST ALT Alkaline Phosphatase Lactate Dehydrogenase Troponin T C-Reactive Protein Total Protein Albumin Prealbumin Triglycerides Cholesterol LDL Cholesterol Direct HDL Cholesterol Urine pH Urine WBC (Auto) Urine Creatinine Urine Total Protein Fluid Total Protein Vancomycin Trough Rheumatoid Factor Complement C4 Miscellaneous Test Crossmatch 11/28/16 11/28/16 11/28/16 12:31 16:09 23:46 WBC RBC Hgb Hct MCV MCH MCHC RDW Plt Count Lymph % (Auto) [place] % (Auto) Lymph # [place] # Baso # Seg Neutrophils % Seg Neuts % (Manual) Lymphocytes % (Manual) Monocytes % (Manual) Eosinophils % (Manual) Basophils % (Manual) Nucleated RBC % Seg Neutrophils # Seg Neutrophils # Man Lymphocytes # (Manual) Monocytes # (Manual) Eosinophils # (Manual) Basophils # (Manual) PT INR Fibrinogen dRVVT Confirm Interp Factor V Activity POC ABG pH POC ABG pCO2 POC ABG pO2 ABG pO2 ABG HCO3 ABG Base Excess ABG Hemoglobin Oxyhemoglobin Sodium Potassium Chloride Carbon Dioxide BUN Creatinine Glucose POC Glucose 126 H 111 H 119 H Lactic Acid Calcium Phosphorus Magnesium Direct Bilirubin AST ALT Alkaline Phosphatase Lactate Dehydrogenase Troponin T C-Reactive Protein Total Protein Albumin Prealbumin Triglycerides Cholesterol LDL Cholesterol Direct HDL Cholesterol Urine pH Urine WBC (Auto) Urine Creatinine Urine Total Protein Fluid Total Protein Vancomycin Trough Rheumatoid Factor Complement C4 Miscellaneous Test Crossmatch 11/29/16 11/29/16 11/29/16 03:33 04:52 05:10 WBC RBC Hgb Hct MCV MCH MCHC RDW Plt Count Lymph % (Auto) [place] % (Auto) Lymph # [place] # Baso # Seg Neutrophils % Seg Neuts % (Manual) Lymphocytes % (Manual) Monocytes % (Manual) Eosinophils % (Manual) Basophils % (Manual) Nucleated RBC % Seg Neutrophils # Seg Neutrophils # Man Lymphocytes # (Manual) Monocytes # (Manual) Eosinophils # (Manual) Basophils # (Manual) PT INR Fibrinogen dRVVT Confirm Interp Factor V Activity POC ABG pH POC ABG pCO2 POC ABG pO2 ABG pO2 ABG HCO3 ABG Base Excess ABG Hemoglobin 7.0 L Oxyhemoglobin 94.9 L Sodium Potassium Chloride Carbon Dioxide BUN 73 H Creatinine 2.7 H Glucose POC Glucose 108 H Lactic Acid Calcium Phosphorus Magnesium Direct Bilirubin AST ALT Alkaline Phosphatase Lactate Dehydrogenase Troponin T C-Reactive Protein Total Protein Albumin Prealbumin Triglycerides Cholesterol LDL Cholesterol Direct HDL Cholesterol Urine pH Urine WBC (Auto) Urine Creatinine Urine Total Protein Fluid Total Protein Vancomycin Trough Rheumatoid Factor Complement C4 Miscellaneous Test Crossmatch 11/29/16 11/29/16 11/29/16 12:16 18:05 23:46 WBC RBC Hgb Hct MCV MCH MCHC RDW Plt Count Lymph % (Auto) [place] % (Auto) Lymph # [place] # Baso # Seg Neutrophils % Seg Neuts % (Manual) Lymphocytes % (Manual) Monocytes % (Manual) Eosinophils % (Manual) Basophils % (Manual) Nucleated RBC % Seg Neutrophils # Seg Neutrophils # Man Lymphocytes # (Manual) Monocytes # (Manual) Eosinophils # (Manual) Basophils # (Manual) PT INR Fibrinogen dRVVT Confirm Interp Factor V Activity POC ABG pH POC ABG pCO2 POC ABG pO2 ABG pO2 ABG HCO3 ABG Base Excess ABG Hemoglobin Oxyhemoglobin Sodium Potassium Chloride Carbon Dioxide BUN Creatinine Glucose POC Glucose 133 H 146 H 141 H Lactic Acid Calcium Phosphorus Magnesium Direct Bilirubin AST ALT Alkaline Phosphatase Lactate Dehydrogenase Troponin T C-Reactive Protein Total Protein Albumin Prealbumin Triglycerides Cholesterol LDL Cholesterol Direct HDL Cholesterol Urine pH Urine WBC (Auto) Urine Creatinine Urine Total Protein Fluid Total Protein Vancomycin Trough Rheumatoid Factor Complement C4 Miscellaneous Test Crossmatch 11/30/16 11/30/16 11/30/16 04:17 04:17 04:32 WBC 12.0 H RBC 2.80 L Hgb 7.8 L Hct 23.6 L MCV MCH MCHC RDW 16.6 H Plt Count Lymph % (Auto) [place] % (Auto) 11.3 H Lymph # [place] # 1.4 H Baso # Seg Neutrophils % Seg Neuts % (Manual) Lymphocytes % (Manual) Monocytes % (Manual) Eosinophils % (Manual) Basophils % (Manual) Nucleated RBC % Seg Neutrophils # 8.2 H Seg Neutrophils # Man Lymphocytes # (Manual) Monocytes # (Manual) Eosinophils # (Manual) Basophils # (Manual) PT INR Fibrinogen dRVVT Confirm Interp Factor V Activity POC ABG pH POC ABG pCO2 POC ABG pO2 ABG pO2 ABG HCO3 ABG Base Excess ABG Hemoglobin Oxyhemoglobin Sodium 169 H* D Potassium 5.1 H Chloride 121.5 H Carbon Dioxide BUN 34 H Creatinine 1.3 H D Glucose 133 H POC Glucose 131 H Lactic Acid Calcium 10.3 H Phosphorus Magnesium Direct Bilirubin AST ALT Alkaline Phosphatase Lactate Dehydrogenase Troponin T C-Reactive Protein Total Protein Albumin Prealbumin Triglycerides Cholesterol LDL Cholesterol Direct HDL Cholesterol Urine pH Urine WBC (Auto) Urine Creatinine Urine Total Protein Fluid Total Protein Vancomycin Trough Rheumatoid Factor Complement C4 Miscellaneous Test Crossmatch 11/30/16 11/30/16 11/30/16 05:45 11:10 17:26 WBC RBC Hgb Hct MCV MCH MCHC RDW Plt Count Lymph % (Auto) [place] % (Auto) Lymph # [place] # Baso # Seg Neutrophils % Seg Neuts % (Manual) Lymphocytes % (Manual) Monocytes % (Manual) Eosinophils % (Manual) Basophils % (Manual) Nucleated RBC % Seg Neutrophils # Seg Neutrophils # Man Lymphocytes # (Manual) Monocytes # (Manual) Eosinophils # (Manual) Basophils # (Manual) PT INR Fibrinogen dRVVT Confirm Interp Factor V Activity POC ABG pH POC ABG pCO2 POC ABG pO2 ABG pO2 ABG HCO3 ABG Base Excess ABG Hemoglobin Oxyhemoglobin Sodium Potassium Chloride Carbon Dioxide BUN 45 H Creatinine 1.6 H Glucose 131 H POC Glucose 146 H 134 H Lactic Acid Calcium Phosphorus Magnesium Direct Bilirubin AST ALT Alkaline Phosphatase Lactate Dehydrogenase Troponin T C-Reactive Protein Total Protein Albumin Prealbumin Triglycerides Cholesterol LDL Cholesterol Direct HDL Cholesterol Urine pH Urine WBC (Auto) Urine Creatinine Urine Total Protein Fluid Total Protein Vancomycin Trough Rheumatoid Factor Complement C4 Miscellaneous Test Crossmatch 11/30/16 12/01/16 12/01/16 23:35 00:06 03:35 WBC RBC Hgb Hct MCV MCH MCHC RDW Plt Count Lymph % (Auto) [place] % (Auto) Lymph # [place] # Baso # Seg Neutrophils % Seg Neuts % (Manual) Lymphocytes % (Manual) Monocytes % (Manual) Eosinophils % (Manual) Basophils % (Manual) Nucleated RBC % Seg Neutrophils # Seg Neutrophils # Man Lymphocytes # (Manual) Monocytes # (Manual) Eosinophils # (Manual) Basophils # (Manual) PT INR Fibrinogen dRVVT Confirm Interp Factor V Activity POC ABG pH POC ABG pCO2 POC ABG pO2 ABG pO2 ABG HCO3 ABG Base Excess ABG Hemoglobin 6.9 L Oxyhemoglobin Sodium Potassium Chloride Carbon Dioxide BUN 58 H Creatinine 1.8 H Glucose 146 H POC Glucose 151 H Lactic Acid Calcium Phosphorus Magnesium Direct Bilirubin AST ALT Alkaline Phosphatase Lactate Dehydrogenase Troponin T C-Reactive Protein Total Protein Albumin Prealbumin Triglycerides Cholesterol LDL Cholesterol Direct HDL Cholesterol Urine pH Urine WBC (Auto) Urine Creatinine Urine Total Protein Fluid Total Protein Vancomycin Trough Rheumatoid Factor Complement C4 Miscellaneous Test Crossmatch 12/01/16 12/01/16 12/01/16 03:35 05:47 11:52 WBC 12.3 H RBC 2.82 L Hgb 7.8 L Hct 23.7 L MCV MCH MCHC RDW 16.7 H Plt Count Lymph % (Auto) [place] % (Auto) 9.8 H Lymph # [place] # 1.2 H Baso # Seg Neutrophils % Seg Neuts % (Manual) Lymphocytes % (Manual) Monocytes % (Manual) Eosinophils % (Manual) Basophils % (Manual) Nucleated RBC % Seg Neutrophils # 8.4 H Seg Neutrophils # Man Lymphocytes # (Manual) Monocytes # (Manual) Eosinophils # (Manual) Basophils # (Manual) PT INR Fibrinogen dRVVT Confirm Interp Factor V Activity POC ABG pH POC ABG pCO2 POC ABG pO2 ABG pO2 ABG HCO3 ABG Base Excess ABG Hemoglobin Oxyhemoglobin Sodium Potassium Chloride Carbon Dioxide BUN Creatinine Glucose POC Glucose 152 H 152 H Lactic Acid Calcium Phosphorus Magnesium Direct Bilirubin AST ALT Alkaline Phosphatase Lactate Dehydrogenase Troponin T C-Reactive Protein Total Protein Albumin Prealbumin Triglycerides Cholesterol LDL Cholesterol Direct HDL Cholesterol Urine pH Urine WBC (Auto) Urine Creatinine Urine Total Protein Fluid Total Protein Vancomycin Trough Rheumatoid Factor Complement C4 Miscellaneous Test Crossmatch 12/01/16 12/01/16 12/02/16 17:40 23:41 05:00 WBC RBC Hgb Hct MCV MCH MCHC RDW Plt Count Lymph % (Auto) [place] % (Auto) Lymph # [place] # Baso # Seg Neutrophils % Seg Neuts % (Manual) Lymphocytes % (Manual) Monocytes % (Manual) Eosinophils % (Manual) Basophils % (Manual) Nucleated RBC % Seg Neutrophils # Seg Neutrophils # Man Lymphocytes # (Manual) Monocytes # (Manual) Eosinophils # (Manual) Basophils # (Manual) PT INR Fibrinogen dRVVT Confirm Interp Factor V Activity POC ABG pH POC ABG pCO2 POC ABG pO2 ABG pO2 ABG HCO3 ABG Base Excess ABG Hemoglobin Oxyhemoglobin Sodium Potassium Chloride Carbon Dioxide BUN 45 H Creatinine Glucose 115 H POC Glucose 140 H 144 H Lactic Acid Calcium Phosphorus Magnesium Direct Bilirubin AST ALT Alkaline Phosphatase Lactate Dehydrogenase Troponin T C-Reactive Protein Total Protein Albumin Prealbumin Triglycerides Cholesterol LDL Cholesterol Direct HDL Cholesterol Urine pH Urine WBC (Auto) Urine Creatinine Urine Total Protein Fluid Total Protein Vancomycin Trough Rheumatoid Factor Complement C4 Miscellaneous Test Crossmatch 12/02/16 12/02/16 12/02/16 05:31 11:20 17:38 WBC RBC Hgb Hct MCV MCH MCHC RDW Plt Count Lymph % (Auto) [place] % (Auto) Lymph # [place] # Baso # Seg Neutrophils % Seg Neuts % (Manual) Lymphocytes % (Manual) Monocytes % (Manual) Eosinophils % (Manual) Basophils % (Manual) Nucleated RBC % Seg Neutrophils # Seg Neutrophils # Man Lymphocytes # (Manual) Monocytes # (Manual) Eosinophils # (Manual) Basophils # (Manual) PT INR Fibrinogen dRVVT Confirm Interp Factor V Activity POC ABG pH POC ABG pCO2 POC ABG pO2 ABG pO2 ABG HCO3 ABG Base Excess ABG Hemoglobin Oxyhemoglobin Sodium Potassium Chloride Carbon Dioxide BUN Creatinine Glucose POC Glucose 136 H 177 H 139 H Lactic Acid Calcium Phosphorus Magnesium Direct Bilirubin AST ALT Alkaline Phosphatase Lactate Dehydrogenase Troponin T C-Reactive Protein Total Protein Albumin Prealbumin Triglycerides Cholesterol LDL Cholesterol Direct HDL Cholesterol Urine pH Urine WBC (Auto) Urine Creatinine Urine Total Protein Fluid Total Protein Vancomycin Trough Rheumatoid Factor Complement C4 Miscellaneous Test Crossmatch 12/02/16 12/03/16 12/03/16 23:43 04:00 04:00 WBC 20.4 H RBC 2.74 L Hgb 7.4 L Hct 23.6 L MCV MCH 27 L MCHC RDW 17.1 H Plt Count Lymph % (Auto) [place] % (Auto) Lymph # [place] # Baso # Seg Neutrophils % Seg Neuts % (Manual) 31.0 L Lymphocytes % (Manual) Monocytes % (Manual) Eosinophils % (Manual) Basophils % (Manual) Nucleated RBC % Seg Neutrophils # Seg Neutrophils # Man Lymphocytes # (Manual) Monocytes # (Manual) Eosinophils # (Manual) Basophils # (Manual) PT INR Fibrinogen dRVVT Confirm Interp Factor V Activity POC ABG pH POC ABG pCO2 POC ABG pO2 ABG pO2 ABG HCO3 ABG Base Excess ABG Hemoglobin Oxyhemoglobin Sodium Potassium Chloride Carbon Dioxide BUN 61 H Creatinine 1.6 H Glucose 119 H POC Glucose 158 H Lactic Acid Calcium Phosphorus Magnesium Direct Bilirubin AST ALT Alkaline Phosphatase Lactate Dehydrogenase Troponin T C-Reactive Protein Total Protein Albumin Prealbumin Triglycerides Cholesterol LDL Cholesterol Direct HDL Cholesterol Urine pH Urine WBC (Auto) Urine Creatinine Urine Total Protein Fluid Total Protein Vancomycin Trough Rheumatoid Factor Complement C4 Miscellaneous Test Crossmatch 12/03/16 12/03/16 12/03/16 05:02 12:11 18:16 WBC RBC Hgb Hct MCV MCH MCHC RDW Plt Count Lymph % (Auto) [place] % (Auto) Lymph # [place] # Baso # Seg Neutrophils % Seg Neuts % (Manual) Lymphocytes % (Manual) Monocytes % (Manual) Eosinophils % (Manual) Basophils % (Manual) Nucleated RBC % Seg Neutrophils # Seg Neutrophils # Man Lymphocytes # (Manual) Monocytes # (Manual) Eosinophils # (Manual) Basophils # (Manual) PT INR Fibrinogen dRVVT Confirm Interp Factor V Activity POC ABG pH POC ABG pCO2 POC ABG pO2 ABG pO2 ABG HCO3 ABG Base Excess ABG Hemoglobin Oxyhemoglobin Sodium Potassium Chloride Carbon Dioxide BUN Creatinine Glucose POC Glucose 146 H 157 H 124 H Lactic Acid Calcium Phosphorus Magnesium Direct Bilirubin AST ALT Alkaline Phosphatase Lactate Dehydrogenase Troponin T C-Reactive Protein Total Protein Albumin Prealbumin Triglycerides Cholesterol LDL Cholesterol Direct HDL Cholesterol Urine pH Urine WBC (Auto) Urine Creatinine Urine Total Protein Fluid Total Protein Vancomycin Trough Rheumatoid Factor Complement C4 Miscellaneous Test Crossmatch 12/03/16 12/04/16 12/04/16 23:41 04:00 04:45 WBC RBC Hgb Hct MCV MCH MCHC RDW Plt Count Lymph % (Auto) [place] % (Auto) Lymph # [place] # Baso # Seg Neutrophils % Seg Neuts % (Manual) Lymphocytes % (Manual) Monocytes % (Manual) Eosinophils % (Manual) Basophils % (Manual) Nucleated RBC % Seg Neutrophils # Seg Neutrophils # Man Lymphocytes # (Manual) Monocytes # (Manual) Eosinophils # (Manual) Basophils # (Manual) PT INR Fibrinogen dRVVT Confirm Interp Factor V Activity POC ABG pH POC ABG pCO2 POC ABG pO2 ABG pO2 ABG HCO3 ABG Base Excess ABG Hemoglobin Oxyhemoglobin Sodium Potassium Chloride Carbon Dioxide BUN 76 H Creatinine 1.6 H Glucose POC Glucose 130 H 136 H Lactic Acid Calcium Phosphorus Magnesium Direct Bilirubin AST ALT Alkaline Phosphatase 155 H Lactate Dehydrogenase Troponin T C-Reactive Protein Total Protein 5.5 L Albumin 1.5 L Prealbumin Triglycerides Cholesterol LDL Cholesterol Direct HDL Cholesterol Urine pH Urine WBC (Auto) Urine Creatinine Urine Total Protein Fluid Total Protein Vancomycin Trough Rheumatoid Factor Complement C4 Miscellaneous Test Crossmatch 12/04/16 12/04/16 12/05/16 12:08 17:23 00:10 WBC RBC Hgb Hct MCV MCH MCHC RDW Plt Count Lymph % (Auto) [place] % (Auto) Lymph # [place] # Baso # Seg Neutrophils % Seg Neuts % (Manual) Lymphocytes % (Manual) Monocytes % (Manual) Eosinophils % (Manual) Basophils % (Manual) Nucleated RBC % Seg Neutrophils # Seg Neutrophils # Man Lymphocytes # (Manual) Monocytes # (Manual) Eosinophils # (Manual) Basophils # (Manual) PT INR Fibrinogen dRVVT Confirm Interp Factor V Activity POC ABG pH POC ABG pCO2 POC ABG pO2 ABG pO2 ABG HCO3 ABG Base Excess ABG Hemoglobin Oxyhemoglobin Sodium Potassium Chloride Carbon Dioxide BUN Creatinine Glucose POC Glucose 114 H 129 H 124 H Lactic Acid Calcium Phosphorus Magnesium Direct Bilirubin AST ALT Alkaline Phosphatase Lactate Dehydrogenase Troponin T C-Reactive Protein Total Protein Albumin Prealbumin Triglycerides Cholesterol LDL Cholesterol Direct HDL Cholesterol Urine pH Urine WBC (Auto) Urine Creatinine Urine Total Protein Fluid Total Protein Vancomycin Trough Rheumatoid Factor Complement C4 Miscellaneous Test Crossmatch 12/05/16 12/05/16 12/05/16 05:00 05:00 05:18 WBC RBC Hgb Hct MCV MCH MCHC RDW Plt Count Lymph % (Auto) [place] % (Auto) Lymph # [place] # Baso # Seg Neutrophils % Seg Neuts % (Manual) Lymphocytes % (Manual) Monocytes % (Manual) Eosinophils % (Manual) Basophils % (Manual) Nucleated RBC % Seg Neutrophils # Seg Neutrophils # Man Lymphocytes # (Manual) Monocytes # (Manual) Eosinophils # (Manual) Basophils # (Manual) PT INR Fibrinogen dRVVT Confirm Interp Factor V Activity POC ABG pH POC ABG pCO2 POC ABG pO2 ABG pO2 ABG HCO3 ABG Base Excess ABG Hemoglobin Oxyhemoglobin Sodium Potassium Chloride Carbon Dioxide 21 L BUN 85 H Creatinine 1.9 H Glucose 131 H POC Glucose 154 H Lactic Acid Calcium Phosphorus Magnesium Direct Bilirubin AST ALT Alkaline Phosphatase Lactate Dehydrogenase Troponin T C-Reactive Protein 19.30 H Total Protein Albumin Prealbumin Triglycerides Cholesterol LDL Cholesterol Direct HDL Cholesterol Urine pH Urine WBC (Auto) Urine Creatinine Urine Total Protein Fluid Total Protein Vancomycin Trough Rheumatoid Factor Complement C4 Miscellaneous Test Crossmatch 12/05/16 12/05/16 12/05/16 11:43 17:46 23:25 WBC RBC Hgb Hct MCV MCH MCHC RDW Plt Count Lymph % (Auto) [place] % (Auto) Lymph # [place] # Baso # Seg Neutrophils % Seg Neuts % (Manual) Lymphocytes % (Manual) Monocytes % (Manual) Eosinophils % (Manual) Basophils % (Manual) Nucleated RBC % Seg Neutrophils # Seg Neutrophils # Man Lymphocytes # (Manual) Monocytes # (Manual) Eosinophils # (Manual) Basophils # (Manual) PT INR Fibrinogen dRVVT Confirm Interp Factor V Activity POC ABG pH POC ABG pCO2 POC ABG pO2 ABG pO2 ABG HCO3 ABG Base Excess ABG Hemoglobin Oxyhemoglobin Sodium Potassium Chloride Carbon Dioxide BUN Creatinine Glucose POC Glucose 117 H 113 H 111 H Lactic Acid Calcium Phosphorus Magnesium Direct Bilirubin AST ALT Alkaline Phosphatase Lactate Dehydrogenase Troponin T C-Reactive Protein Total Protein Albumin Prealbumin Triglycerides Cholesterol LDL Cholesterol Direct HDL Cholesterol Urine pH Urine WBC (Auto) Urine Creatinine Urine Total Protein Fluid Total Protein Vancomycin Trough Rheumatoid Factor Complement C4 Miscellaneous Test Crossmatch 12/05/16 12/06/16 12/06/16 Unknown 04:58 06:00 WBC RBC Hgb Hct MCV MCH MCHC RDW Plt Count Lymph % (Auto) [place] % (Auto) Lymph # [place] # Baso # Seg Neutrophils % Seg Neuts % (Manual) Lymphocytes % (Manual) Monocytes % (Manual) Eosinophils % (Manual) Basophils % (Manual) Nucleated RBC % Seg Neutrophils # Seg Neutrophils # Man Lymphocytes # (Manual) Monocytes # (Manual) Eosinophils # (Manual) Basophils # (Manual) PT INR Fibrinogen dRVVT Confirm Interp Factor V Activity POC ABG pH POC ABG pCO2 POC ABG pO2 ABG pO2 75.2 L ABG HCO3 ABG Base Excess -3.4 L ABG Hemoglobin 7.4 L Oxyhemoglobin 94.5 L Sodium Potassium Chloride Carbon Dioxide 20 L BUN 99 H Creatinine 2.1 H Glucose 126 H POC Glucose 145 H Lactic Acid Calcium Phosphorus 4.80 H Magnesium Direct Bilirubin AST ALT Alkaline Phosphatase Lactate Dehydrogenase Troponin T C-Reactive Protein Total Protein Albumin Prealbumin Triglycerides Cholesterol LDL Cholesterol Direct HDL Cholesterol Urine pH Urine WBC (Auto) Urine Creatinine Urine Total Protein Fluid Total Protein Vancomycin Trough Rheumatoid Factor Complement C4 Miscellaneous Test Crossmatch 12/06/16 12/06/16 12/06/16 06:46 11:54 17:55 WBC RBC Hgb 8.3 L Hct 26.4 L MCV MCH MCHC RDW Plt Count Lymph % (Auto) [place] % (Auto) Lymph # [place] # Baso # Seg Neutrophils % Seg Neuts % (Manual) Lymphocytes % (Manual) Monocytes % (Manual) Eosinophils % (Manual) Basophils % (Manual) Nucleated RBC % Seg Neutrophils # Seg Neutrophils # Man Lymphocytes # (Manual) Monocytes # (Manual) Eosinophils # (Manual) Basophils # (Manual) PT INR Fibrinogen dRVVT Confirm Interp Factor V Activity POC ABG pH POC ABG pCO2 POC ABG pO2 ABG pO2 ABG HCO3 ABG Base Excess ABG Hemoglobin Oxyhemoglobin Sodium Potassium Chloride Carbon Dioxide BUN Creatinine Glucose POC Glucose 126 H 157 H Lactic Acid Calcium Phosphorus Magnesium Direct Bilirubin AST ALT Alkaline Phosphatase Lactate Dehydrogenase Troponin T C-Reactive Protein Total Protein Albumin Prealbumin Triglycerides Cholesterol LDL Cholesterol Direct HDL Cholesterol Urine pH Urine WBC (Auto) Urine Creatinine Urine Total Protein Fluid Total Protein Vancomycin Trough Rheumatoid Factor Complement C4 Miscellaneous Test Crossmatch 12/06/16 12/07/16 12/07/16 23:59 05:34 06:30 WBC RBC Hgb Hct MCV MCH MCHC RDW Plt Count Lymph % (Auto) [place] % (Auto) Lymph # [place] # Baso # Seg Neutrophils % Seg Neuts % (Manual) Lymphocytes % (Manual) Monocytes % (Manual) Eosinophils % (Manual) Basophils % (Manual) Nucleated RBC % Seg Neutrophils # Seg Neutrophils # Man Lymphocytes # (Manual) Monocytes # (Manual) Eosinophils # (Manual) Basophils # (Manual) PT INR Fibrinogen dRVVT Confirm Interp Factor V Activity POC ABG pH POC ABG pCO2 POC ABG pO2 ABG pO2 ABG HCO3 ABG Base Excess ABG Hemoglobin Oxyhemoglobin Sodium Potassium Chloride Carbon Dioxide BUN 67 H Creatinine 1.4 H Glucose 126 H POC Glucose 129 H 129 H Lactic Acid Calcium Phosphorus Magnesium Direct Bilirubin AST ALT Alkaline Phosphatase Lactate Dehydrogenase Troponin T C-Reactive Protein Total Protein Albumin Prealbumin Triglycerides Cholesterol LDL Cholesterol Direct HDL Cholesterol Urine pH Urine WBC (Auto) Urine Creatinine Urine Total Protein Fluid Total Protein Vancomycin Trough Rheumatoid Factor Complement C4 Miscellaneous Test Crossmatch 12/07/16 12/07/16 12/07/16 06:30 08:00 09:45 WBC 18.8 H RBC 2.52 L Hgb 6.9 L 6.8 L Hct 21.2 L 21.1 L MCV MCH 27 L MCHC RDW 18.0 H Plt Count Lymph % (Auto) [place] % (Auto) 9.9 H Lymph # [place] # 1.9 H Baso # Seg Neutrophils % 71.8 H Seg Neuts % (Manual) Lymphocytes % (Manual) Monocytes % (Manual) Eosinophils % (Manual) Basophils % (Manual) Nucleated RBC % Seg Neutrophils # 13.5 H Seg Neutrophils # Man Lymphocytes # (Manual) Monocytes # (Manual) Eosinophils # (Manual) Basophils # (Manual) PT INR Fibrinogen dRVVT Confirm Interp Factor V Activity POC ABG pH POC ABG pCO2 POC ABG pO2 ABG pO2 ABG HCO3 ABG Base Excess ABG Hemoglobin Oxyhemoglobin Sodium Potassium Chloride Carbon Dioxide BUN Creatinine Glucose POC Glucose Lactic Acid Calcium Phosphorus Magnesium Direct Bilirubin AST ALT Alkaline Phosphatase Lactate Dehydrogenase Troponin T C-Reactive Protein Total Protein Albumin Prealbumin Triglycerides Cholesterol LDL Cholesterol Direct HDL Cholesterol Urine pH Urine WBC (Auto) Urine Creatinine Urine Total Protein Fluid Total Protein Vancomycin Trough Rheumatoid Factor Complement C4 Miscellaneous Test Crossmatch See Detail 12/07/16 12/07/16 12/07/16 11:44 18:19 23:59 WBC RBC Hgb Hct MCV MCH MCHC RDW Plt Count Lymph % (Auto) [place] % (Auto) Lymph # [place] # Baso # Seg Neutrophils % Seg Neuts % (Manual) Lymphocytes % (Manual) Monocytes % (Manual) Eosinophils % (Manual) Basophils % (Manual) Nucleated RBC % Seg Neutrophils # Seg Neutrophils # Man Lymphocytes # (Manual) Monocytes # (Manual) Eosinophils # (Manual) Basophils # (Manual) PT INR Fibrinogen dRVVT Confirm Interp Factor V Activity POC ABG pH POC ABG pCO2 POC ABG pO2 ABG pO2 ABG HCO3 ABG Base Excess ABG Hemoglobin Oxyhemoglobin Sodium Potassium Chloride Carbon Dioxide BUN Creatinine Glucose POC Glucose 137 H 138 H 133 H Lactic Acid Calcium Phosphorus Magnesium Direct Bilirubin AST ALT Alkaline Phosphatase Lactate Dehydrogenase Troponin T C-Reactive Protein Total Protein Albumin Prealbumin Triglycerides Cholesterol LDL Cholesterol Direct HDL Cholesterol Urine pH Urine WBC (Auto) Urine Creatinine Urine Total Protein Fluid Total Protein Vancomycin Trough Rheumatoid Factor Complement C4 Miscellaneous Test Crossmatch 12/08/16 12/08/16 12/08/16 05:25 05:30 05:30 WBC 23.8 H RBC 2.88 L Hgb 8.1 L Hct 24.3 L MCV MCH MCHC RDW 16.7 H Plt Count Lymph % (Auto) [place] % (Auto) Lymph # [place] # Baso # Seg Neutrophils % Seg Neuts % (Manual) 76.0 H Lymphocytes % (Manual) 9.0 L Monocytes % (Manual) 9.0 H Eosinophils % (Manual) Basophils % (Manual) Nucleated RBC % Seg Neutrophils # Seg Neutrophils # Man 18.1 H Lymphocytes # (Manual) Monocytes # (Manual) 2.1 H Eosinophils # (Manual) Basophils # (Manual) PT INR Fibrinogen dRVVT Confirm Interp Factor V Activity POC ABG pH POC ABG pCO2 POC ABG pO2 ABG pO2 ABG HCO3 ABG Base Excess ABG Hemoglobin Oxyhemoglobin Sodium Potassium Chloride Carbon Dioxide 21 L BUN 76 H Creatinine 1.6 H Glucose 133 H POC Glucose 177 H Lactic Acid Calcium Phosphorus Magnesium Direct Bilirubin AST ALT Alkaline Phosphatase Lactate Dehydrogenase Troponin T C-Reactive Protein Total Protein Albumin Prealbumin Triglycerides Cholesterol LDL Cholesterol Direct HDL Cholesterol Urine pH Urine WBC (Auto) Urine Creatinine Urine Total Protein Fluid Total Protein Vancomycin Trough Rheumatoid Factor Complement C4 Miscellaneous Test Crossmatch 12/08/16 12/08/16 12/09/16 11:45 18:00 00:00 WBC RBC Hgb Hct MCV MCH MCHC RDW Plt Count Lymph % (Auto) [place] % (Auto) Lymph # [place] # Baso # Seg Neutrophils % Seg Neuts % (Manual) Lymphocytes % (Manual) Monocytes % (Manual) Eosinophils % (Manual) Basophils % (Manual) Nucleated RBC % Seg Neutrophils # Seg Neutrophils # Man Lymphocytes # (Manual) Monocytes # (Manual) Eosinophils # (Manual) Basophils # (Manual) PT INR Fibrinogen dRVVT Confirm Interp Factor V Activity POC ABG pH POC ABG pCO2 POC ABG pO2 ABG pO2 ABG HCO3 ABG Base Excess ABG Hemoglobin Oxyhemoglobin Sodium Potassium Chloride Carbon Dioxide BUN Creatinine Glucose POC Glucose 163 H 123 H 137 H Lactic Acid Calcium Phosphorus Magnesium Direct Bilirubin AST ALT Alkaline Phosphatase Lactate Dehydrogenase Troponin T C-Reactive Protein Total Protein Albumin Prealbumin Triglycerides Cholesterol LDL Cholesterol Direct HDL Cholesterol Urine pH Urine WBC (Auto) Urine Creatinine Urine Total Protein Fluid Total Protein Vancomycin Trough Rheumatoid Factor Complement C4 Miscellaneous Test Crossmatch 12/09/16 12/09/16 12/09/16 05:34 06:00 06:00 WBC 15.5 H RBC 2.87 L Hgb 8.0 L Hct 24.2 L MCV MCH MCHC RDW 17.2 H Plt Count Lymph % (Auto) [place] % (Auto) 11.6 H Lymph # [place] # 1.8 H Baso # Seg Neutrophils % 70.8 H Seg Neuts % (Manual) Lymphocytes % (Manual) Monocytes % (Manual) Eosinophils % (Manual) Basophils % (Manual) Nucleated RBC % Seg Neutrophils # 11.0 H Seg Neutrophils # Man Lymphocytes # (Manual) Monocytes # (Manual) Eosinophils # (Manual) Basophils # (Manual) PT INR Fibrinogen dRVVT Confirm Interp Factor V Activity POC ABG pH POC ABG pCO2 POC ABG pO2 ABG pO2 ABG HCO3 ABG Base Excess ABG Hemoglobin Oxyhemoglobin Sodium Potassium Chloride Carbon Dioxide BUN 51 H Creatinine Glucose 117 H POC Glucose 136 H Lactic Acid Calcium Phosphorus Magnesium Direct Bilirubin AST ALT Alkaline Phosphatase Lactate Dehydrogenase Troponin T C-Reactive Protein Total Protein Albumin Prealbumin Triglycerides Cholesterol LDL Cholesterol Direct HDL Cholesterol Urine pH Urine WBC (Auto) Urine Creatinine Urine Total Protein Fluid Total Protein Vancomycin Trough Rheumatoid Factor Complement C4 Miscellaneous Test Crossmatch 12/09/16 12/09/16 12/09/16 12:29 17:52 23:10 WBC RBC Hgb Hct MCV MCH MCHC RDW Plt Count Lymph % (Auto) [place] % (Auto) Lymph # [place] # Baso # Seg Neutrophils % Seg Neuts % (Manual) Lymphocytes % (Manual) Monocytes % (Manual) Eosinophils % (Manual) Basophils % (Manual) Nucleated RBC % Seg Neutrophils # Seg Neutrophils # Man Lymphocytes # (Manual) Monocytes # (Manual) Eosinophils # (Manual) Basophils # (Manual) PT INR Fibrinogen dRVVT Confirm Interp Factor V Activity POC ABG pH POC ABG pCO2 POC ABG pO2 ABG pO2 ABG HCO3 ABG Base Excess ABG Hemoglobin Oxyhemoglobin Sodium Potassium Chloride Carbon Dioxide BUN Creatinine Glucose POC Glucose 139 H 140 H 129 H Lactic Acid Calcium Phosphorus Magnesium Direct Bilirubin AST ALT Alkaline Phosphatase Lactate Dehydrogenase Troponin T C-Reactive Protein Total Protein Albumin Prealbumin Triglycerides Cholesterol LDL Cholesterol Direct HDL Cholesterol Urine pH Urine WBC (Auto) Urine Creatinine Urine Total Protein Fluid Total Protein Vancomycin Trough Rheumatoid Factor Complement C4 Miscellaneous Test Crossmatch 12/10/16 12/10/16 12/10/16 05:00 05:00 06:54 WBC 15.7 H RBC 2.87 L Hgb 8.2 L Hct 24.4 L MCV MCH MCHC RDW 17.2 H Plt Count Lymph % (Auto) [place] % (Auto) 8.3 H Lymph # [place] # 1.3 H Baso # Seg Neutrophils % 72.8 H Seg Neuts % (Manual) Lymphocytes % (Manual) Monocytes % (Manual) Eosinophils % (Manual) Basophils % (Manual) Nucleated RBC % Seg Neutrophils # 11.4 H Seg Neutrophils # Man Lymphocytes # (Manual) Monocytes # (Manual) Eosinophils # (Manual) Basophils # (Manual) PT INR Fibrinogen dRVVT Confirm Interp Factor V Activity POC ABG pH POC ABG pCO2 POC ABG pO2 ABG pO2 ABG HCO3 ABG Base Excess ABG Hemoglobin Oxyhemoglobin Sodium Potassium Chloride Carbon Dioxide BUN 64 H Creatinine 1.4 H Glucose 134 H POC Glucose 154 H Lactic Acid Calcium Phosphorus Magnesium Direct Bilirubin AST ALT Alkaline Phosphatase Lactate Dehydrogenase Troponin T C-Reactive Protein Total Protein Albumin Prealbumin Triglycerides Cholesterol LDL Cholesterol Direct HDL Cholesterol Urine pH Urine WBC (Auto) Urine Creatinine Urine Total Protein Fluid Total Protein Vancomycin Trough Rheumatoid Factor Complement C4 Miscellaneous Test Crossmatch 12/10/16 12/10/16 12/10/16 11:58 17:29 23:52 WBC RBC Hgb Hct MCV MCH MCHC RDW Plt Count Lymph % (Auto) [place] % (Auto) Lymph # [place] # Baso # Seg Neutrophils % Seg Neuts % (Manual) Lymphocytes % (Manual) Monocytes % (Manual) Eosinophils % (Manual) Basophils % (Manual) Nucleated RBC % Seg Neutrophils # Seg Neutrophils # Man Lymphocytes # (Manual) Monocytes # (Manual) Eosinophils # (Manual) Basophils # (Manual) PT INR Fibrinogen dRVVT Confirm Interp Factor V Activity POC ABG pH POC ABG pCO2 POC ABG pO2 ABG pO2 ABG HCO3 ABG Base Excess ABG Hemoglobin Oxyhemoglobin Sodium Potassium Chloride Carbon Dioxide BUN Creatinine Glucose POC Glucose 144 H 163 H 125 H Lactic Acid Calcium Phosphorus Magnesium Direct Bilirubin AST ALT Alkaline Phosphatase Lactate Dehydrogenase Troponin T C-Reactive Protein Total Protein Albumin Prealbumin Triglycerides Cholesterol LDL Cholesterol Direct HDL Cholesterol Urine pH Urine WBC (Auto) Urine Creatinine Urine Total Protein Fluid Total Protein Vancomycin Trough Rheumatoid Factor Complement C4 Miscellaneous Test Crossmatch 12/11/16 12/11/16 12/11/16 05:38 06:30 06:30 WBC 14.4 H RBC 2.76 L Hgb 7.7 L Hct 23.4 L MCV MCH MCHC RDW 17.2 H Plt Count Lymph % (Auto) [place] % (Auto) 8.8 H Lymph # [place] # 1.3 H Baso # Seg Neutrophils % 72.5 H Seg Neuts % (Manual) Lymphocytes % (Manual) Monocytes % (Manual) Eosinophils % (Manual) Basophils % (Manual) Nucleated RBC % Seg Neutrophils # 10.5 H Seg Neutrophils # Man Lymphocytes # (Manual) Monocytes # (Manual) Eosinophils # (Manual) Basophils # (Manual) PT INR Fibrinogen dRVVT Confirm Interp Factor V Activity POC ABG pH POC ABG pCO2 POC ABG pO2 ABG pO2 ABG HCO3 ABG Base Excess ABG Hemoglobin Oxyhemoglobin Sodium Potassium Chloride Carbon Dioxide BUN 43 H Creatinine Glucose 124 H POC Glucose 141 H Lactic Acid Calcium 8.3 L Phosphorus Magnesium 1.60 L Direct Bilirubin AST ALT Alkaline Phosphatase Lactate Dehydrogenase Troponin T C-Reactive Protein Total Protein Albumin Prealbumin Triglycerides Cholesterol LDL Cholesterol Direct HDL Cholesterol Urine pH Urine WBC (Auto) Urine Creatinine Urine Total Protein Fluid Total Protein Vancomycin Trough Rheumatoid Factor Complement C4 Miscellaneous Test Crossmatch 12/11/16 12/11/16 12/11/16 11:15 17:59 23:48 WBC RBC Hgb Hct MCV MCH MCHC RDW Plt Count Lymph % (Auto) [place] % (Auto) Lymph # [place] # Baso # Seg Neutrophils % Seg Neuts % (Manual) Lymphocytes % (Manual) Monocytes % (Manual) Eosinophils % (Manual) Basophils % (Manual) Nucleated RBC % Seg Neutrophils # Seg Neutrophils # Man Lymphocytes # (Manual) Monocytes # (Manual) Eosinophils # (Manual) Basophils # (Manual) PT INR Fibrinogen dRVVT Confirm Interp Factor V Activity POC ABG pH POC ABG pCO2 POC ABG pO2 ABG pO2 ABG HCO3 ABG Base Excess ABG Hemoglobin Oxyhemoglobin Sodium Potassium Chloride Carbon Dioxide BUN Creatinine Glucose POC Glucose 188 H 106 H 119 H Lactic Acid Calcium Phosphorus Magnesium Direct Bilirubin AST ALT Alkaline Phosphatase Lactate Dehydrogenase Troponin T C-Reactive Protein Total Protein Albumin Prealbumin Triglycerides Cholesterol LDL Cholesterol Direct HDL Cholesterol Urine pH Urine WBC (Auto) Urine Creatinine Urine Total Protein Fluid Total Protein Vancomycin Trough Rheumatoid Factor Complement C4 Miscellaneous Test Crossmatch 12/12/16 12/12/16 12/12/16 05:00 06:01 12:20 WBC 16.7 H RBC 2.87 L Hgb 8.0 L Hct 24.2 L MCV MCH MCHC RDW 17.6 H Plt Count Lymph % (Auto) [place] % (Auto) Lymph # [place] # 1.2 H Baso # Seg Neutrophils % 75.3 H Seg Neuts % (Manual) Lymphocytes % (Manual) Monocytes % (Manual) Eosinophils % (Manual) Basophils % (Manual) Nucleated RBC % Seg Neutrophils # 12.6 H Seg Neutrophils # Man Lymphocytes # (Manual) Monocytes # (Manual) Eosinophils # (Manual) Basophils # (Manual) PT INR Fibrinogen dRVVT Confirm Interp Factor V Activity POC ABG pH POC ABG pCO2 POC ABG pO2 ABG pO2 ABG HCO3 ABG Base Excess ABG Hemoglobin Oxyhemoglobin Sodium Potassium Chloride Carbon Dioxide BUN Creatinine Glucose POC Glucose 134 H 149 H Lactic Acid Calcium Phosphorus Magnesium Direct Bilirubin AST ALT Alkaline Phosphatase Lactate Dehydrogenase Troponin T C-Reactive Protein Total Protein Albumin Prealbumin Triglycerides Cholesterol LDL Cholesterol Direct HDL Cholesterol Urine pH Urine WBC (Auto) Urine Creatinine Urine Total Protein Fluid Total Protein Vancomycin Trough Rheumatoid Factor Complement C4 Miscellaneous Test Crossmatch 12/12/16 12/12/16 12/12/16 17:38 23:01 Unknown WBC RBC Hgb Hct MCV MCH MCHC RDW Plt Count Lymph % (Auto) [place] % (Auto) Lymph # [place] # Baso # Seg Neutrophils % Seg Neuts % (Manual) Lymphocytes % (Manual) Monocytes % (Manual) Eosinophils % (Manual) Basophils % (Manual) Nucleated RBC % Seg Neutrophils # Seg Neutrophils # Man Lymphocytes # (Manual) Monocytes # (Manual) Eosinophils # (Manual) Basophils # (Manual) PT INR Fibrinogen dRVVT Confirm Interp Factor V Activity POC ABG pH POC ABG pCO2 POC ABG pO2 ABG pO2 ABG HCO3 ABG Base Excess ABG Hemoglobin Oxyhemoglobin Sodium Potassium Chloride Carbon Dioxide BUN 60 H Creatinine 1.3 H Glucose 126 H POC Glucose 127 H 144 H Lactic Acid Calcium Phosphorus Magnesium Direct Bilirubin AST ALT Alkaline Phosphatase Lactate Dehydrogenase Troponin T C-Reactive Protein Total Protein Albumin Prealbumin Triglycerides Cholesterol LDL Cholesterol Direct HDL Cholesterol Urine pH Urine WBC (Auto) Urine Creatinine Urine Total Protein Fluid Total Protein Vancomycin Trough Rheumatoid Factor Complement C4 Miscellaneous Test Crossmatch 12/13/16 12/13/16 12/13/16 04:00 04:00 05:19 WBC 18.7 H RBC 2.89 L Hgb 8.3 L Hct 24.6 L MCV MCH MCHC RDW 17.5 H Plt Count Lymph % (Auto) [place] % (Auto) Lymph # [place] # 1.3 H Baso # Seg Neutrophils % 71.5 H Seg Neuts % (Manual) Lymphocytes % (Manual) Monocytes % (Manual) Eosinophils % (Manual) Basophils % (Manual) Nucleated RBC % Seg Neutrophils # 13.4 H Seg Neutrophils # Man Lymphocytes # (Manual) Monocytes # (Manual) Eosinophils # (Manual) Basophils # (Manual) PT INR Fibrinogen dRVVT Confirm Interp Factor V Activity POC ABG pH POC ABG pCO2 POC ABG pO2 ABG pO2 ABG HCO3 ABG Base Excess ABG Hemoglobin Oxyhemoglobin Sodium Potassium Chloride Carbon Dioxide BUN 73 H Creatinine 1.5 H Glucose 141 H POC Glucose 171 H Lactic Acid Calcium Phosphorus Magnesium Direct Bilirubin AST ALT Alkaline Phosphatase Lactate Dehydrogenase Troponin T C-Reactive Protein Total Protein Albumin Prealbumin Triglycerides Cholesterol LDL Cholesterol Direct HDL Cholesterol Urine pH Urine WBC (Auto) Urine Creatinine Urine Total Protein Fluid Total Protein Vancomycin Trough Rheumatoid Factor Complement C4 Miscellaneous Test Crossmatch 12/13/16 12/13/16 12/14/16 12:28 16:48 00:01 WBC RBC Hgb Hct MCV MCH MCHC RDW Plt Count Lymph % (Auto) [place] % (Auto) Lymph # [place] # Baso # Seg Neutrophils % Seg Neuts % (Manual) Lymphocytes % (Manual) Monocytes % (Manual) Eosinophils % (Manual) Basophils % (Manual) Nucleated RBC % Seg Neutrophils # Seg Neutrophils # Man Lymphocytes # (Manual) Monocytes # (Manual) Eosinophils # (Manual) Basophils # (Manual) PT INR Fibrinogen dRVVT Confirm Interp Factor V Activity POC ABG pH POC ABG pCO2 POC ABG pO2 ABG pO2 ABG HCO3 ABG Base Excess ABG Hemoglobin Oxyhemoglobin Sodium Potassium Chloride Carbon Dioxide BUN Creatinine Glucose POC Glucose 206 H 173 H 139 H Lactic Acid Calcium Phosphorus Magnesium Direct Bilirubin AST ALT Alkaline Phosphatase Lactate Dehydrogenase Troponin T C-Reactive Protein Total Protein Albumin Prealbumin Triglycerides Cholesterol LDL Cholesterol Direct HDL Cholesterol Urine pH Urine WBC (Auto) Urine Creatinine Urine Total Protein Fluid Total Protein Vancomycin Trough Rheumatoid Factor Complement C4 Miscellaneous Test Crossmatch 12/14/16 12/14/16 12/14/16 05:16 06:10 11:17 WBC RBC Hgb Hct MCV MCH MCHC RDW Plt Count Lymph % (Auto) [place] % (Auto) Lymph # [place] # Baso # Seg Neutrophils % Seg Neuts % (Manual) Lymphocytes % (Manual) Monocytes % (Manual) Eosinophils % (Manual) Basophils % (Manual) Nucleated RBC % Seg Neutrophils # Seg Neutrophils # Man Lymphocytes # (Manual) Monocytes # (Manual) Eosinophils # (Manual) Basophils # (Manual) PT INR Fibrinogen dRVVT Confirm Interp Factor V Activity POC ABG pH POC ABG pCO2 POC ABG pO2 ABG pO2 ABG HCO3 ABG Base Excess ABG Hemoglobin Oxyhemoglobin Sodium Potassium Chloride Carbon Dioxide BUN 57 H Creatinine 1.4 H Glucose 135 H POC Glucose 158 H 137 H Lactic Acid Calcium Phosphorus Magnesium Direct Bilirubin AST ALT Alkaline Phosphatase Lactate Dehydrogenase Troponin T C-Reactive Protein Total Protein Albumin Prealbumin Triglycerides Cholesterol LDL Cholesterol Direct HDL Cholesterol Urine pH Urine WBC (Auto) Urine Creatinine Urine Total Protein Fluid Total Protein Vancomycin Trough Rheumatoid Factor Complement C4 Miscellaneous Test Crossmatch 12/14/16 12/14/16 12/15/16 17:52 23:27 04:00 WBC RBC Hgb Hct MCV MCH MCHC RDW Plt Count Lymph % (Auto) [place] % (Auto) Lymph # [place] # Baso # Seg Neutrophils % Seg Neuts % (Manual) Lymphocytes % (Manual) Monocytes % (Manual) Eosinophils % (Manual) Basophils % (Manual) Nucleated RBC % Seg Neutrophils # Seg Neutrophils # Man Lymphocytes # (Manual) Monocytes # (Manual) Eosinophils # (Manual) Basophils # (Manual) PT INR Fibrinogen dRVVT Confirm Interp Factor V Activity POC ABG pH POC ABG pCO2 POC ABG pO2 ABG pO2 ABG HCO3 ABG Base Excess ABG Hemoglobin Oxyhemoglobin Sodium Potassium Chloride 97.9 L Carbon Dioxide BUN 75 H Creatinine 1.6 H Glucose 122 H POC Glucose 149 H 163 H Lactic Acid Calcium Phosphorus 5.20 H Magnesium Direct Bilirubin AST ALT Alkaline Phosphatase Lactate Dehydrogenase Troponin T C-Reactive Protein Total Protein Albumin Prealbumin Triglycerides Cholesterol LDL Cholesterol Direct HDL Cholesterol Urine pH Urine WBC (Auto) Urine Creatinine Urine Total Protein Fluid Total Protein Vancomycin Trough Rheumatoid Factor Complement C4 Miscellaneous Test Crossmatch 12/15/16 12/15/16 12/15/16 05:50 11:24 17:01 WBC RBC Hgb Hct MCV MCH MCHC RDW Plt Count Lymph % (Auto) Wilkin % (Auto) Lymph # [place]kin # Baso # Seg Neutrophils % Seg Neuts % (Manual) Lymphocytes % (Manual) Monocytes % (Manual) Eosinophils % (Manual) Basophils % (Manual) Nucleated RBC % Seg Neutrophils # Seg Neutrophils # Man Lymphocytes # (Manual) Monocytes # (Manual) Eosinophils # (Manual) Basophils # (Manual) PT INR Fibrinogen dRVVT Confirm Interp Factor V Activity POC ABG pH POC ABG pCO2 POC ABG pO2 ABG pO2 ABG HCO3 ABG Base Excess ABG Hemoglobin Oxyhemoglobin Sodium Potassium Chloride Carbon Dioxide BUN Creatinine Glucose POC Glucose 150 H 146 H 167 H Lactic Acid Calcium Phosphorus Magnesium Direct Bilirubin AST ALT Alkaline Phosphatase Lactate Dehydrogenase Troponin T C-Reactive Protein Total Protein Albumin Prealbumin Triglycerides Cholesterol LDL Cholesterol Direct HDL Cholesterol Urine pH Urine WBC (Auto) Urine Creatinine Urine Total Protein Fluid Total Protein Vancomycin Trough Rheumatoid Factor Complement C4 Miscellaneous Test Crossmatch 12/15/16 12/16/16 12/16/16 23:34 05:25 11:24 WBC RBC Hgb Hct MCV MCH MCHC RDW Plt Count Lymph % (Auto) Wilkin % (Auto) Lymph # [place] # Baso # Seg Neutrophils % Seg Neuts % (Manual) Lymphocytes % (Manual) Monocytes % (Manual) Eosinophils % (Manual) Basophils % (Manual) Nucleated RBC % Seg Neutrophils # Seg Neutrophils # Man Lymphocytes # (Manual) Monocytes # (Manual) Eosinophils # (Manual) Basophils # (Manual) PT INR Fibrinogen dRVVT Confirm Interp Factor V Activity POC ABG pH POC ABG pCO2 POC ABG pO2 ABG pO2 ABG HCO3 ABG Base Excess ABG Hemoglobin Oxyhemoglobin Sodium Potassium Chloride Carbon Dioxide BUN Creatinine Glucose POC Glucose 127 H 139 H 165 H Lactic Acid Calcium Phosphorus Magnesium Direct Bilirubin AST ALT Alkaline Phosphatase Lactate Dehydrogenase Troponin T C-Reactive Protein Total Protein Albumin Prealbumin Triglycerides Cholesterol LDL Cholesterol Direct HDL Cholesterol Urine pH Urine WBC (Auto) Urine Creatinine Urine Total Protein Fluid Total Protein Vancomycin Trough Rheumatoid Factor Complement C4 Miscellaneous Test Crossmatch 12/16/16 12/16/16 12/16/16 15:30 16:25 17:31 WBC 17.8 H RBC 2.38 L Hgb 6.4 L Hct 20.3 L MCV MCH 27 L MCHC RDW 17.4 H Plt Count Lymph % (Auto) [place]kin % (Auto) Lymph # [place] # Baso # Seg Neutrophils % Seg Neuts % (Manual) Lymphocytes % (Manual) Monocytes % (Manual) 10.0 H Eosinophils % (Manual) Basophils % (Manual) Nucleated RBC % Seg Neutrophils # Seg Neutrophils # Man 8.5 H Lymphocytes # (Manual) Monocytes # (Manual) 1.8 H Eosinophils # (Manual) Basophils # (Manual) PT INR Fibrinogen dRVVT Confirm Interp Factor V Activity POC ABG pH POC ABG pCO2 POC ABG pO2 ABG pO2 ABG HCO3 ABG Base Excess ABG Hemoglobin Oxyhemoglobin Sodium Potassium Chloride Carbon Dioxide BUN Creatinine Glucose POC Glucose 176 H Lactic Acid Calcium Phosphorus Magnesium Direct Bilirubin AST ALT Alkaline Phosphatase Lactate Dehydrogenase Troponin T C-Reactive Protein Total Protein Albumin Prealbumin Triglycerides Cholesterol LDL Cholesterol Direct HDL Cholesterol Urine pH Urine WBC (Auto) Urine Creatinine Urine Total Protein Fluid Total Protein Vancomycin Trough Rheumatoid Factor Complement C4 Miscellaneous Test Crossmatch See Detail 12/17/16 12/17/16 12/17/16 00:14 04:00 05:00 WBC 20.0 H RBC 2.99 L Hgb 8.5 L Hct 25.7 L MCV MCH MCHC RDW 17.2 H Plt Count Lymph % (Auto) [place]kin % (Auto) Lymph # [place] # Baso # Seg Neutrophils % Seg Neuts % (Manual) Lymphocytes % (Manual) Monocytes % (Manual) Eosinophils % (Manual) Basophils % (Manual) Nucleated RBC % Seg Neutrophils # Seg Neutrophils # Man Lymphocytes # (Manual) Monocytes # (Manual) Eosinophils # (Manual) Basophils # (Manual) PT INR Fibrinogen dRVVT Confirm Interp Factor V Activity POC ABG pH POC ABG pCO2 POC ABG pO2 ABG pO2 ABG HCO3 ABG Base Excess ABG Hemoglobin Oxyhemoglobin Sodium Potassium Chloride 97.7 L Carbon Dioxide BUN 73 H Creatinine 1.7 H Glucose 136 H POC Glucose 148 H Lactic Acid Calcium Phosphorus 2.20 L Magnesium 2.70 H Direct Bilirubin AST ALT Alkaline Phosphatase Lactate Dehydrogenase Troponin T C-Reactive Protein Total Protein Albumin Prealbumin Triglycerides Cholesterol LDL Cholesterol Direct HDL Cholesterol Urine pH Urine WBC (Auto) Urine Creatinine Urine Total Protein Fluid Total Protein Vancomycin Trough Rheumatoid Factor Complement C4 Miscellaneous Test Crossmatch 12/17/16 12/17/16 12/17/16 05:39 12:50 16:32 WBC RBC Hgb Hct MCV MCH MCHC RDW Plt Count Lymph % (Auto) Wilkin % (Auto) Lymph # [place] # Baso # Seg Neutrophils % Seg Neuts % (Manual) Lymphocytes % (Manual) Monocytes % (Manual) Eosinophils % (Manual) Basophils % (Manual) Nucleated RBC % Seg Neutrophils # Seg Neutrophils # Man Lymphocytes # (Manual) Monocytes # (Manual) Eosinophils # (Manual) Basophils # (Manual) PT INR Fibrinogen dRVVT Confirm Interp Factor V Activity POC ABG pH POC ABG pCO2 POC ABG pO2 ABG pO2 ABG HCO3 ABG Base Excess ABG Hemoglobin Oxyhemoglobin Sodium Potassium Chloride Carbon Dioxide BUN Creatinine Glucose POC Glucose 162 H 146 H 169 H Lactic Acid Calcium Phosphorus Magnesium Direct Bilirubin AST ALT Alkaline Phosphatase Lactate Dehydrogenase Troponin T C-Reactive Protein Total Protein Albumin Prealbumin Triglycerides Cholesterol LDL Cholesterol Direct HDL Cholesterol Urine pH Urine WBC (Auto) Urine Creatinine Urine Total Protein Fluid Total Protein Vancomycin Trough Rheumatoid Factor Complement C4 Miscellaneous Test Crossmatch 12/17/16 12/18/16 12/18/16 23:57 05:00 05:32 WBC RBC Hgb Hct MCV MCH MCHC RDW Plt Count Lymph % (Auto) Wilkin % (Auto) Lymph # [place] # Baso # Seg Neutrophils % Seg Neuts % (Manual) Lymphocytes % (Manual) Monocytes % (Manual) Eosinophils % (Manual) Basophils % (Manual) Nucleated RBC % Seg Neutrophils # Seg Neutrophils # Man Lymphocytes # (Manual) Monocytes # (Manual) Eosinophils # (Manual) Basophils # (Manual) PT INR Fibrinogen dRVVT Confirm Interp Factor V Activity POC ABG pH POC ABG pCO2 POC ABG pO2 ABG pO2 ABG HCO3 ABG Base Excess ABG Hemoglobin Oxyhemoglobin Sodium Potassium Chloride 97.0 L Carbon Dioxide BUN 63 H Creatinine 1.4 H Glucose 174 H POC Glucose 145 H 201 H Lactic Acid Calcium Phosphorus 1.70 L D Magnesium Direct Bilirubin AST ALT Alkaline Phosphatase 257 H Lactate Dehydrogenase Troponin T C-Reactive Protein Total Protein 5.9 L Albumin 1.8 L Prealbumin Triglycerides Cholesterol LDL Cholesterol Direct HDL Cholesterol Urine pH Urine WBC (Auto) Urine Creatinine Urine Total Protein Fluid Total Protein Vancomycin Trough Rheumatoid Factor Complement C4 Miscellaneous Test Crossmatch 12/18/16 12/18/16 12/18/16 11:43 16:52 23:52 WBC RBC Hgb Hct MCV MCH MCHC RDW Plt Count Lymph % (Auto) Wilkin % (Auto) Lymph # [place] # Baso # Seg Neutrophils % Seg Neuts % (Manual) Lymphocytes % (Manual) Monocytes % (Manual) Eosinophils % (Manual) Basophils % (Manual) Nucleated RBC % Seg Neutrophils # Seg Neutrophils # Man Lymphocytes # (Manual) Monocytes # (Manual) Eosinophils # (Manual) Basophils # (Manual) PT INR Fibrinogen dRVVT Confirm Interp Factor V Activity POC ABG pH POC ABG pCO2 POC ABG pO2 ABG pO2 ABG HCO3 ABG Base Excess ABG Hemoglobin Oxyhemoglobin Sodium Potassium Chloride Carbon Dioxide BUN Creatinine Glucose POC Glucose 177 H 110 H 162 H Lactic Acid Calcium Phosphorus Magnesium Direct Bilirubin AST ALT Alkaline Phosphatase Lactate Dehydrogenase Troponin T C-Reactive Protein Total Protein Albumin Prealbumin Triglycerides Cholesterol LDL Cholesterol Direct HDL Cholesterol Urine pH Urine WBC (Auto) Urine Creatinine Urine Total Protein Fluid Total Protein Vancomycin Trough Rheumatoid Factor Complement C4 Miscellaneous Test Crossmatch 12/19/16 12/19/16 12/19/16 05:02 05:24 09:30 WBC 20.1 H RBC 2.73 L Hgb 7.6 L Hct 23.6 L MCV MCH MCHC RDW 17.6 H Plt Count Lymph % (Auto) Wilkin % (Auto) Lymph # [place] # Baso # Seg Neutrophils % Seg Neuts % (Manual) Lymphocytes % (Manual) 13.0 L Monocytes % (Manual) Eosinophils % (Manual) Basophils % (Manual) Nucleated RBC % 1.0 H Seg Neutrophils # Seg Neutrophils # Man 12.9 H Lymphocytes # (Manual) Monocytes # (Manual) 1.4 H Eosinophils # (Manual) Basophils # (Manual) 0.2 H PT INR Fibrinogen dRVVT Confirm Interp Factor V Activity POC ABG pH POC ABG pCO2 POC ABG pO2 ABG pO2 ABG HCO3 ABG Base Excess ABG Hemoglobin Oxyhemoglobin Sodium Potassium Chloride 97.8 L Carbon Dioxide BUN 84 H Creatinine 1.6 H Glucose 133 H POC Glucose 134 H Lactic Acid Calcium Phosphorus Magnesium Direct Bilirubin AST ALT Alkaline Phosphatase Lactate Dehydrogenase Troponin T C-Reactive Protein Total Protein Albumin Prealbumin Triglycerides Cholesterol LDL Cholesterol Direct HDL Cholesterol Urine pH Urine WBC (Auto) Urine Creatinine Urine Total Protein Fluid Total Protein Vancomycin Trough Rheumatoid Factor Complement C4 Miscellaneous Test Crossmatch 12/19/16 12/19/16 12/19/16 09:36 11:12 18:29 WBC RBC Hgb Hct MCV MCH MCHC RDW Plt Count Lymph % (Auto) Wilkin % (Auto) Lymph # [place] # Baso # Seg Neutrophils % Seg Neuts % (Manual) Lymphocytes % (Manual) Monocytes % (Manual) Eosinophils % (Manual) Basophils % (Manual) Nucleated RBC % Seg Neutrophils # Seg Neutrophils # Man Lymphocytes # (Manual) Monocytes # (Manual) Eosinophils # (Manual) Basophils # (Manual) PT INR Fibrinogen dRVVT Confirm Interp Factor V Activity POC ABG pH 7.503 H POC ABG pCO2 30.1 L POC ABG pO2 ABG pO2 ABG HCO3 ABG Base Excess ABG Hemoglobin Oxyhemoglobin Sodium Potassium Chloride Carbon Dioxide BUN Creatinine Glucose POC Glucose 138 H 156 H Lactic Acid Calcium Phosphorus Magnesium Direct Bilirubin AST ALT Alkaline Phosphatase Lactate Dehydrogenase Troponin T C-Reactive Protein Total Protein Albumin Prealbumin Triglycerides Cholesterol LDL Cholesterol Direct HDL Cholesterol Urine pH Urine WBC (Auto) Urine Creatinine Urine Total Protein Fluid Total Protein Vancomycin Trough Rheumatoid Factor Complement C4 Miscellaneous Test Crossmatch 12/20/16 12/20/16 12/20/16 00:03 06:17 07:07 WBC RBC Hgb Hct MCV MCH MCHC RDW Plt Count Lymph % (Auto) Wilkin % (Auto) Lymph # [place] # Baso # Seg Neutrophils % Seg Neuts % (Manual) Lymphocytes % (Manual) Monocytes % (Manual) Eosinophils % (Manual) Basophils % (Manual) Nucleated RBC % Seg Neutrophils # Seg Neutrophils # Man Lymphocytes # (Manual) Monocytes # (Manual) Eosinophils # (Manual) Basophils # (Manual) PT INR Fibrinogen dRVVT Confirm Interp Factor V Activity POC ABG pH POC ABG pCO2 POC ABG pO2 ABG pO2 ABG HCO3 ABG Base Excess ABG Hemoglobin Oxyhemoglobin Sodium Potassium Chloride 97.1 L Carbon Dioxide 20 L BUN 97 H Creatinine 1.8 H Glucose 153 H POC Glucose 152 H 175 H Lactic Acid Calcium Phosphorus Magnesium Direct Bilirubin AST ALT Alkaline Phosphatase Lactate Dehydrogenase Troponin T C-Reactive Protein Total Protein Albumin Prealbumin Triglycerides Cholesterol LDL Cholesterol Direct HDL Cholesterol Urine pH Urine WBC (Auto) Urine Creatinine Urine Total Protein Fluid Total Protein Vancomycin Trough Rheumatoid Factor Complement C4 Miscellaneous Test Crossmatch 12/20/16 12/20/16 12/20/16 12:00 17:42 23:53 WBC RBC Hgb Hct MCV MCH MCHC RDW Plt Count Lymph % (Auto) Wilkin % (Auto) Lymph # [place] # Baso # Seg Neutrophils % Seg Neuts % (Manual) Lymphocytes % (Manual) Monocytes % (Manual) Eosinophils % (Manual) Basophils % (Manual) Nucleated RBC % Seg Neutrophils # Seg Neutrophils # Man Lymphocytes # (Manual) Monocytes # (Manual) Eosinophils # (Manual) Basophils # (Manual) PT INR Fibrinogen dRVVT Confirm Interp Factor V Activity POC ABG pH POC ABG pCO2 POC ABG pO2 ABG pO2 ABG HCO3 ABG Base Excess ABG Hemoglobin Oxyhemoglobin Sodium Potassium Chloride Carbon Dioxide BUN Creatinine Glucose POC Glucose 141 H 156 H 132 H Lactic Acid Calcium Phosphorus Magnesium Direct Bilirubin AST ALT Alkaline Phosphatase Lactate Dehydrogenase Troponin T C-Reactive Protein Total Protein Albumin Prealbumin Triglycerides Cholesterol LDL Cholesterol Direct HDL Cholesterol Urine pH Urine WBC (Auto) Urine Creatinine Urine Total Protein Fluid Total Protein Vancomycin Trough Rheumatoid Factor Complement C4 Miscellaneous Test Crossmatch 12/21/16 12/21/16 12/21/16 05:49 08:50 12:19 WBC RBC Hgb Hct MCV MCH MCHC RDW Plt Count Lymph % (Auto) Wilkin % (Auto) Lymph # [place] # Baso # Seg Neutrophils % Seg Neuts % (Manual) Lymphocytes % (Manual) Monocytes % (Manual) Eosinophils % (Manual) Basophils % (Manual) Nucleated RBC % Seg Neutrophils # Seg Neutrophils # Man Lymphocytes # (Manual) Monocytes # (Manual) Eosinophils # (Manual) Basophils # (Manual) PT INR Fibrinogen dRVVT Confirm Interp Factor V Activity POC ABG pH POC ABG pCO2 POC ABG pO2 ABG pO2 ABG HCO3 ABG Base Excess ABG Hemoglobin Oxyhemoglobin Sodium Potassium 5.2 H D Chloride Carbon Dioxide BUN 63 H Creatinine Glucose 122 H POC Glucose 132 H 136 H Lactic Acid Calcium 8.3 L Phosphorus Magnesium Direct Bilirubin AST ALT Alkaline Phosphatase Lactate Dehydrogenase Troponin T C-Reactive Protein Total Protein Albumin Prealbumin Triglycerides Cholesterol LDL Cholesterol Direct HDL Cholesterol Urine pH Urine WBC (Auto) Urine Creatinine Urine Total Protein Fluid Total Protein Vancomycin Trough Rheumatoid Factor Complement C4 Miscellaneous Test Crossmatch 12/21/16 12/21/16 12/22/16 17:22 23:58 05:49 WBC RBC Hgb Hct MCV MCH MCHC RDW Plt Count Lymph % (Auto) [place]kin % (Auto) Lymph # [place] # Baso # Seg Neutrophils % Seg Neuts % (Manual) Lymphocytes % (Manual) Monocytes % (Manual) Eosinophils % (Manual) Basophils % (Manual) Nucleated RBC % Seg Neutrophils # Seg Neutrophils # Man Lymphocytes # (Manual) Monocytes # (Manual) Eosinophils # (Manual) Basophils # (Manual) PT INR Fibrinogen dRVVT Confirm Interp Factor V Activity POC ABG pH POC ABG pCO2 POC ABG pO2 ABG pO2 ABG HCO3 ABG Base Excess ABG Hemoglobin Oxyhemoglobin Sodium Potassium Chloride Carbon Dioxide BUN Creatinine Glucose POC Glucose 135 H 149 H 140 H Lactic Acid Calcium Phosphorus Magnesium Direct Bilirubin AST ALT Alkaline Phosphatase Lactate Dehydrogenase Troponin T C-Reactive Protein Total Protein Albumin Prealbumin Triglycerides Cholesterol LDL Cholesterol Direct HDL Cholesterol Urine pH Urine WBC (Auto) Urine Creatinine Urine Total Protein Fluid Total Protein Vancomycin Trough Rheumatoid Factor Complement C4 Miscellaneous Test Crossmatch 12/22/16 12/22/16 12/22/16 06:10 11:17 17:31 WBC RBC Hgb Hct MCV MCH MCHC RDW Plt Count Lymph % (Auto) [place]kin % (Auto) Lymph # [place] # Baso # Seg Neutrophils % Seg Neuts % (Manual) Lymphocytes % (Manual) Monocytes % (Manual) Eosinophils % (Manual) Basophils % (Manual) Nucleated RBC % Seg Neutrophils # Seg Neutrophils # Man Lymphocytes # (Manual) Monocytes # (Manual) Eosinophils # (Manual) Basophils # (Manual) PT INR Fibrinogen dRVVT Confirm Interp Factor V Activity POC ABG pH POC ABG pCO2 POC ABG pO2 ABG pO2 ABG HCO3 ABG Base Excess ABG Hemoglobin Oxyhemoglobin Sodium Potassium Chloride Carbon Dioxide BUN 76 H Creatinine 1.5 H Glucose 241 H POC Glucose 193 H 148 H Lactic Acid Calcium Phosphorus Magnesium Direct Bilirubin AST ALT Alkaline Phosphatase Lactate Dehydrogenase Troponin T C-Reactive Protein Total Protein Albumin Prealbumin Triglycerides Cholesterol LDL Cholesterol Direct HDL Cholesterol Urine pH Urine WBC (Auto) Urine Creatinine Urine Total Protein Fluid Total Protein Vancomycin Trough Rheumatoid Factor Complement C4 Miscellaneous Test Crossmatch 12/22/16 12/23/16 12/23/16 23:58 05:00 05:26 WBC RBC Hgb Hct MCV MCH MCHC RDW Plt Count Lymph % (Auto) [place]kin % (Auto) Lymph # [place]kin # Baso # Seg Neutrophils % Seg Neuts % (Manual) Lymphocytes % (Manual) Monocytes % (Manual) Eosinophils % (Manual) Basophils % (Manual) Nucleated RBC % Seg Neutrophils # Seg Neutrophils # Man Lymphocytes # (Manual) Monocytes # (Manual) Eosinophils # (Manual) Basophils # (Manual) PT INR Fibrinogen dRVVT Confirm Interp Factor V Activity POC ABG pH POC ABG pCO2 POC ABG pO2 ABG pO2 ABG HCO3 ABG Base Excess ABG Hemoglobin Oxyhemoglobin Sodium Potassium Chloride Carbon Dioxide BUN 49 H Creatinine Glucose 143 H POC Glucose 165 H 154 H Lactic Acid Calcium 8.2 L Phosphorus Magnesium 1.60 L Direct Bilirubin AST ALT Alkaline Phosphatase Lactate Dehydrogenase Troponin T C-Reactive Protein Total Protein Albumin Prealbumin Triglycerides Cholesterol LDL Cholesterol Direct HDL Cholesterol Urine pH Urine WBC (Auto) Urine Creatinine Urine Total Protein Fluid Total Protein Vancomycin Trough Rheumatoid Factor Complement C4 Miscellaneous Test Crossmatch 12/23/16 12/23/16 12/24/16 12:35 17:01 00:01 WBC RBC Hgb Hct MCV MCH MCHC RDW Plt Count Lymph % (Auto) [place]kin % (Auto) Lymph # [place]kin # Baso # Seg Neutrophils % Seg Neuts % (Manual) Lymphocytes % (Manual) Monocytes % (Manual) Eosinophils % (Manual) Basophils % (Manual) Nucleated RBC % Seg Neutrophils # Seg Neutrophils # Man Lymphocytes # (Manual) Monocytes # (Manual) Eosinophils # (Manual) Basophils # (Manual) PT INR Fibrinogen dRVVT Confirm Interp Factor V Activity POC ABG pH POC ABG pCO2 POC ABG pO2 ABG pO2 ABG HCO3 ABG Base Excess ABG Hemoglobin Oxyhemoglobin Sodium Potassium Chloride Carbon Dioxide BUN Creatinine Glucose POC Glucose 164 H 149 H 135 H Lactic Acid Calcium Phosphorus Magnesium Direct Bilirubin AST ALT Alkaline Phosphatase Lactate Dehydrogenase Troponin T C-Reactive Protein Total Protein Albumin Prealbumin Triglycerides Cholesterol LDL Cholesterol Direct HDL Cholesterol Urine pH Urine WBC (Auto) Urine Creatinine Urine Total Protein Fluid Total Protein Vancomycin Trough Rheumatoid Factor Complement C4 Miscellaneous Test Crossmatch 12/24/16 12/24/16 12/24/16 05:41 07:01 11:38 WBC RBC Hgb Hct MCV MCH MCHC RDW Plt Count Lymph % (Auto) [place]kin % (Auto) Lymph # [place]kin # Baso # Seg Neutrophils % Seg Neuts % (Manual) Lymphocytes % (Manual) Monocytes % (Manual) Eosinophils % (Manual) Basophils % (Manual) Nucleated RBC % Seg Neutrophils # Seg Neutrophils # Man Lymphocytes # (Manual) Monocytes # (Manual) Eosinophils # (Manual) Basophils # (Manual) PT INR Fibrinogen dRVVT Confirm Interp Factor V Activity POC ABG pH POC ABG pCO2 POC ABG pO2 ABG pO2 ABG HCO3 ABG Base Excess ABG Hemoglobin Oxyhemoglobin Sodium Potassium Chloride Carbon Dioxide BUN 72 H Creatinine 1.3 H Glucose 130 H POC Glucose 132 H 156 H Lactic Acid Calcium 8.2 L Phosphorus Magnesium Direct Bilirubin AST ALT Alkaline Phosphatase Lactate Dehydrogenase Troponin T C-Reactive Protein Total Protein Albumin Prealbumin Triglycerides Cholesterol LDL Cholesterol Direct HDL Cholesterol Urine pH Urine WBC (Auto) Urine Creatinine Urine Total Protein Fluid Total Protein Vancomycin Trough Rheumatoid Factor Complement C4 Miscellaneous Test Crossmatch 12/24/16 12/25/16 12/25/16 17:53 00:23 05:45 WBC RBC Hgb Hct MCV MCH MCHC RDW Plt Count Lymph % (Auto) [place]kin % (Auto) Lymph # [place]kin # Baso # Seg Neutrophils % Seg Neuts % (Manual) Lymphocytes % (Manual) Monocytes % (Manual) Eosinophils % (Manual) Basophils % (Manual) Nucleated RBC % Seg Neutrophils # Seg Neutrophils # Man Lymphocytes # (Manual) Monocytes # (Manual) Eosinophils # (Manual) Basophils # (Manual) PT INR Fibrinogen dRVVT Confirm Interp Factor V Activity POC ABG pH POC ABG pCO2 POC ABG pO2 ABG pO2 ABG HCO3 ABG Base Excess ABG Hemoglobin Oxyhemoglobin Sodium 146 H Potassium Chloride Carbon Dioxide BUN 51 H Creatinine Glucose 109 H POC Glucose 169 H 117 H Lactic Acid Calcium Phosphorus Magnesium Direct Bilirubin AST ALT Alkaline Phosphatase Lactate Dehydrogenase Troponin T C-Reactive Protein Total Protein Albumin Prealbumin Triglycerides Cholesterol LDL Cholesterol Direct HDL Cholesterol Urine pH Urine WBC (Auto) Urine Creatinine Urine Total Protein Fluid Total Protein Vancomycin Trough Rheumatoid Factor Complement C4 Miscellaneous Test Crossmatch 12/25/16 12/25/16 12/25/16 06:43 11:29 17:14 WBC RBC Hgb Hct MCV MCH MCHC RDW Plt Count Lymph % (Auto) [place]kin % (Auto) Lymph # [place]kin # Baso # Seg Neutrophils % Seg Neuts % (Manual) Lymphocytes % (Manual) Monocytes % (Manual) Eosinophils % (Manual) Basophils % (Manual) Nucleated RBC % Seg Neutrophils # Seg Neutrophils # Man Lymphocytes # (Manual) Monocytes # (Manual) Eosinophils # (Manual) Basophils # (Manual) PT INR Fibrinogen dRVVT Confirm Interp Factor V Activity POC ABG pH POC ABG pCO2 POC ABG pO2 ABG pO2 ABG HCO3 ABG Base Excess ABG Hemoglobin Oxyhemoglobin Sodium Potassium Chloride Carbon Dioxide BUN Creatinine Glucose POC Glucose 117 H 128 H 120 H Lactic Acid Calcium Phosphorus Magnesium Direct Bilirubin AST ALT Alkaline Phosphatase Lactate Dehydrogenase Troponin T C-Reactive Protein Total Protein Albumin Prealbumin Triglycerides Cholesterol LDL Cholesterol Direct HDL Cholesterol Urine pH Urine WBC (Auto) Urine Creatinine Urine Total Protein Fluid Total Protein Vancomycin Trough Rheumatoid Factor Complement C4 Miscellaneous Test Crossmatch 12/25/16 12/26/16 12/26/16 23:54 05:40 05:50 WBC 16.2 H RBC 2.32 L Hgb 6.2 L Hct 20.1 L MCV MCH 27 L MCHC RDW 18.6 H Plt Count Lymph % (Auto) [place] % (Auto) Lymph # [place]kin # Baso # Seg Neutrophils % Seg Neuts % (Manual) Lymphocytes % (Manual) Monocytes % (Manual) Eosinophils % (Manual) Basophils % (Manual) Nucleated RBC % Seg Neutrophils # Seg Neutrophils # Man Lymphocytes # (Manual) Monocytes # (Manual) Eosinophils # (Manual) Basophils # (Manual) PT INR Fibrinogen dRVVT Confirm Interp Factor V Activity POC ABG pH POC ABG pCO2 POC ABG pO2 ABG pO2 ABG HCO3 ABG Base Excess ABG Hemoglobin Oxyhemoglobin Sodium Potassium Chloride Carbon Dioxide BUN Creatinine Glucose POC Glucose 126 H 132 H Lactic Acid Calcium Phosphorus Magnesium Direct Bilirubin AST ALT Alkaline Phosphatase Lactate Dehydrogenase Troponin T C-Reactive Protein Total Protein Albumin Prealbumin Triglycerides Cholesterol LDL Cholesterol Direct HDL Cholesterol Urine pH Urine WBC (Auto) Urine Creatinine Urine Total Protein Fluid Total Protein Vancomycin Trough Rheumatoid Factor Complement C4 Miscellaneous Test Crossmatch 12/26/16 12/26/16 12/26/16 05:50 12:17 12:33 WBC RBC Hgb Hct MCV MCH MCHC RDW Plt Count Lymph % (Auto) [place]kin % (Auto) Lymph # [place]kin # Baso # Seg Neutrophils % Seg Neuts % (Manual) Lymphocytes % (Manual) Monocytes % (Manual) Eosinophils % (Manual) Basophils % (Manual) Nucleated RBC % Seg Neutrophils # Seg Neutrophils # Man Lymphocytes # (Manual) Monocytes # (Manual) Eosinophils # (Manual) Basophils # (Manual) PT INR Fibrinogen dRVVT Confirm Interp Factor V Activity POC ABG pH POC ABG pCO2 POC ABG pO2 ABG pO2 ABG HCO3 ABG Base Excess ABG Hemoglobin Oxyhemoglobin Sodium Potassium Chloride Carbon Dioxide BUN 73 H Creatinine 1.3 H Glucose 113 H POC Glucose 117 H Lactic Acid Calcium Phosphorus Magnesium Direct Bilirubin AST ALT Alkaline Phosphatase Lactate Dehydrogenase Troponin T C-Reactive Protein Total Protein Albumin Prealbumin Triglycerides Cholesterol LDL Cholesterol Direct HDL Cholesterol Urine pH Urine WBC (Auto) Urine Creatinine Urine Total Protein Fluid Total Protein Vancomycin Trough Rheumatoid Factor Complement C4 Miscellaneous Test Crossmatch See Detail 12/26/16 12/26/16 12/27/16 20:00 23:21 05:00 WBC RBC Hgb 8.4 L Hct 26.3 L D MCV MCH MCHC RDW Plt Count Lymph % (Auto) [place]kin % (Auto) Lymph # [place]kin # Baso # Seg Neutrophils % Seg Neuts % (Manual) Lymphocytes % (Manual) Monocytes % (Manual) Eosinophils % (Manual) Basophils % (Manual) Nucleated RBC % Seg Neutrophils # Seg Neutrophils # Man Lymphocytes # (Manual) Monocytes # (Manual) Eosinophils # (Manual) Basophils # (Manual) PT INR Fibrinogen dRVVT Confirm Interp Factor V Activity POC ABG pH POC ABG pCO2 POC ABG pO2 ABG pO2 ABG HCO3 ABG Base Excess ABG Hemoglobin Oxyhemoglobin Sodium Potassium Chloride Carbon Dioxide BUN 85 H Creatinine 1.6 H Glucose 118 H POC Glucose 124 H Lactic Acid Calcium Phosphorus 4.80 H Magnesium Direct Bilirubin AST ALT Alkaline Phosphatase Lactate Dehydrogenase Troponin T C-Reactive Protein Total Protein Albumin Prealbumin Triglycerides Cholesterol LDL Cholesterol Direct HDL Cholesterol Urine pH Urine WBC (Auto) Urine Creatinine Urine Total Protein Fluid Total Protein Vancomycin Trough Rheumatoid Factor Complement C4 Miscellaneous Test Crossmatch 12/27/16 12/27/16 12/27/16 05:00 05:35 12:24 WBC RBC Hgb 7.6 L Hct 22.8 L MCV MCH MCHC RDW Plt Count Lymph % (Auto) Wil[place] % (Auto) Lymph # [place] # Baso # Seg Neutrophils % Seg Neuts % (Manual) Lymphocytes % (Manual) Monocytes % (Manual) Eosinophils % (Manual) Basophils % (Manual) Nucleated RBC % Seg Neutrophils # Seg Neutrophils # Man Lymphocytes # (Manual) Monocytes # (Manual) Eosinophils # (Manual) Basophils # (Manual) PT INR Fibrinogen dRVVT Confirm Interp Factor V Activity POC ABG pH POC ABG pCO2 POC ABG pO2 ABG pO2 ABG HCO3 ABG Base Excess ABG Hemoglobin Oxyhemoglobin Sodium Potassium Chloride Carbon Dioxide BUN Creatinine Glucose POC Glucose 115 H 131 H Lactic Acid Calcium Phosphorus Magnesium Direct Bilirubin AST ALT Alkaline Phosphatase Lactate Dehydrogenase Troponin T C-Reactive Protein Total Protein Albumin Prealbumin Triglycerides Cholesterol LDL Cholesterol Direct HDL Cholesterol Urine pH Urine WBC (Auto) Urine Creatinine Urine Total Protein Fluid Total Protein Vancomycin Trough Rheumatoid Factor Complement C4 Miscellaneous Test Crossmatch 12/27/16 12/28/16 12/28/16 17:16 00:18 04:00 WBC RBC Hgb Hct MCV MCH MCHC RDW Plt Count Lymph % (Auto) [place]kin % (Auto) Lymph # [place] # Baso # Seg Neutrophils % Seg Neuts % (Manual) Lymphocytes % (Manual) Monocytes % (Manual) Eosinophils % (Manual) Basophils % (Manual) Nucleated RBC % Seg Neutrophils # Seg Neutrophils # Man Lymphocytes # (Manual) Monocytes # (Manual) Eosinophils # (Manual) Basophils # (Manual) PT INR Fibrinogen dRVVT Confirm Interp Factor V Activity POC ABG pH POC ABG pCO2 POC ABG pO2 ABG pO2 ABG HCO3 ABG Base Excess ABG Hemoglobin Oxyhemoglobin Sodium Potassium 3.5 L Chloride Carbon Dioxide BUN 57 H Creatinine Glucose 118 H POC Glucose 136 H 120 H Lactic Acid Calcium 8.3 L Phosphorus Magnesium Direct Bilirubin AST ALT Alkaline Phosphatase Lactate Dehydrogenase Troponin T C-Reactive Protein Total Protein Albumin Prealbumin Triglycerides Cholesterol LDL Cholesterol Direct HDL Cholesterol Urine pH Urine WBC (Auto) Urine Creatinine Urine Total Protein Fluid Total Protein Vancomycin Trough Rheumatoid Factor Complement C4 Miscellaneous Test Crossmatch 12/28/16 12/28/16 12/28/16 04:00 05:11 08:30 WBC 17.0 H RBC 2.58 L Hgb 7.1 L Hct 22.0 L MCV MCH MCHC RDW 17.6 H Plt Count Lymph % (Auto) 12.2 L [place] % (Auto) Lymph # [place] # 1.1 H Baso # Seg Neutrophils % 80.5 H Seg Neuts % (Manual) Lymphocytes % (Manual) Monocytes % (Manual) Eosinophils % (Manual) Basophils % (Manual) Nucleated RBC % Seg Neutrophils # 13.7 H Seg Neutrophils # Man Lymphocytes # (Manual) Monocytes # (Manual) Eosinophils # (Manual) Basophils # (Manual) PT 16.1 H INR 1.23 H Fibrinogen dRVVT Confirm Interp Factor V Activity POC ABG pH POC ABG pCO2 POC ABG pO2 ABG pO2 ABG HCO3 ABG Base Excess ABG Hemoglobin Oxyhemoglobin Sodium Potassium Chloride Carbon Dioxide BUN Creatinine Glucose POC Glucose 122 H Lactic Acid Calcium Phosphorus Magnesium Direct Bilirubin AST ALT Alkaline Phosphatase Lactate Dehydrogenase Troponin T C-Reactive Protein Total Protein Albumin Prealbumin Triglycerides Cholesterol LDL Cholesterol Direct HDL Cholesterol Urine pH Urine WBC (Auto) Urine Creatinine Urine Total Protein Fluid Total Protein Vancomycin Trough Rheumatoid Factor Complement C4 Miscellaneous Test Crossmatch 12/28/16 12/28/16 12/28/16 12:27 16:32 23:46 WBC RBC Hgb Hct MCV MCH MCHC RDW Plt Count Lymph % (Auto) [place] % (Auto) Lymph # [place] # Baso # Seg Neutrophils % Seg Neuts % (Manual) Lymphocytes % (Manual) Monocytes % (Manual) Eosinophils % (Manual) Basophils % (Manual) Nucleated RBC % Seg Neutrophils # Seg Neutrophils # Man Lymphocytes # (Manual) Monocytes # (Manual) Eosinophils # (Manual) Basophils # (Manual) PT INR Fibrinogen dRVVT Confirm Interp Factor V Activity POC ABG pH POC ABG pCO2 POC ABG pO2 ABG pO2 ABG HCO3 ABG Base Excess ABG Hemoglobin Oxyhemoglobin Sodium Potassium Chloride Carbon Dioxide BUN Creatinine Glucose POC Glucose 127 H 117 H 108 H Lactic Acid Calcium Phosphorus Magnesium Direct Bilirubin AST ALT Alkaline Phosphatase Lactate Dehydrogenase Troponin T C-Reactive Protein Total Protein Albumin Prealbumin Triglycerides Cholesterol LDL Cholesterol Direct HDL Cholesterol Urine pH Urine WBC (Auto) Urine Creatinine Urine Total Protein Fluid Total Protein Vancomycin Trough Rheumatoid Factor Complement C4 Miscellaneous Test Crossmatch 12/29/16 12/29/16 12/29/16 05:15 05:15 05:32 WBC RBC Hgb Hct MCV MCH MCHC RDW Plt Count Lymph % (Auto) [place] % (Auto) Lymph # [place] # Baso # Seg Neutrophils % Seg Neuts % (Manual) Lymphocytes % (Manual) Monocytes % (Manual) Eosinophils % (Manual) Basophils % (Manual) Nucleated RBC % Seg Neutrophils # Seg Neutrophils # Man Lymphocytes # (Manual) Monocytes # (Manual) Eosinophils # (Manual) Basophils # (Manual) PT INR Fibrinogen dRVVT Confirm Interp Factor V Activity POC ABG pH POC ABG pCO2 POC ABG pO2 ABG pO2 ABG HCO3 ABG Base Excess ABG Hemoglobin Oxyhemoglobin Sodium Potassium Chloride Carbon Dioxide BUN 74 H Creatinine 1.6 H Glucose 111 H POC Glucose 123 H Lactic Acid Calcium Phosphorus Magnesium Direct Bilirubin AST ALT Alkaline Phosphatase Lactate Dehydrogenase Troponin T C-Reactive Protein Total Protein Albumin Prealbumin 0.110 L Triglycerides Cholesterol LDL Cholesterol Direct HDL Cholesterol Urine pH Urine WBC (Auto) Urine Creatinine Urine Total Protein Fluid Total Protein Vancomycin Trough Rheumatoid Factor Complement C4 Miscellaneous Test Crossmatch 12/29/16 12/29/16 12/29/16 11:43 13:45 14:00 WBC 13.8 H RBC 2.26 L Hgb 6.3 L Hct 20.4 L MCV MCH MCHC RDW 18.3 H Plt Count Lymph % (Auto) [place] % (Auto) Lymph # [place] # 0.9 H Baso # Seg Neutrophils % 78.6 H Seg Neuts % (Manual) Lymphocytes % (Manual) Monocytes % (Manual) Eosinophils % (Manual) Basophils % (Manual) Nucleated RBC % Seg Neutrophils # 10.8 H Seg Neutrophils # Man Lymphocytes # (Manual) Monocytes # (Manual) Eosinophils # (Manual) Basophils # (Manual) PT INR Fibrinogen dRVVT Confirm Interp Factor V Activity POC ABG pH POC ABG pCO2 POC ABG pO2 ABG pO2 ABG HCO3 ABG Base Excess ABG Hemoglobin Oxyhemoglobin Sodium Potassium Chloride Carbon Dioxide BUN Creatinine Glucose POC Glucose 133 H Lactic Acid Calcium Phosphorus Magnesium Direct Bilirubin AST ALT Alkaline Phosphatase Lactate Dehydrogenase Troponin T C-Reactive Protein Total Protein Albumin Prealbumin Triglycerides Cholesterol LDL Cholesterol Direct HDL Cholesterol Urine pH Urine WBC (Auto) Urine Creatinine Urine Total Protein Fluid Total Protein Vancomycin Trough Rheumatoid Factor Complement C4 Miscellaneous Test Crossmatch See Detail 12/29/16 12/29/16 12/29/16 17:03 23:15 23:22 WBC RBC Hgb 7.3 L Hct 22.3 L MCV MCH MCHC RDW Plt Count Lymph % (Auto) [place] % (Auto) Lymph # [place] # Baso # Seg Neutrophils % Seg Neuts % (Manual) Lymphocytes % (Manual) Monocytes % (Manual) Eosinophils % (Manual) Basophils % (Manual) Nucleated RBC % Seg Neutrophils # Seg Neutrophils # Man Lymphocytes # (Manual) Monocytes # (Manual) Eosinophils # (Manual) Basophils # (Manual) PT INR Fibrinogen dRVVT Confirm Interp Factor V Activity POC ABG pH POC ABG pCO2 POC ABG pO2 ABG pO2 ABG HCO3 ABG Base Excess ABG Hemoglobin Oxyhemoglobin Sodium Potassium Chloride Carbon Dioxide BUN Creatinine Glucose POC Glucose 139 H 120 H Lactic Acid Calcium Phosphorus Magnesium Direct Bilirubin AST ALT Alkaline Phosphatase Lactate Dehydrogenase Troponin T C-Reactive Protein Total Protein Albumin Prealbumin Triglycerides Cholesterol LDL Cholesterol Direct HDL Cholesterol Urine pH Urine WBC (Auto) Urine Creatinine Urine Total Protein Fluid Total Protein Vancomycin Trough Rheumatoid Factor Complement C4 Miscellaneous Test Crossmatch 12/30/16 12/30/16 12/30/16 04:20 04:20 05:43 WBC 15.6 H RBC 2.81 L Hgb 8.0 L Hct 24.0 L MCV MCH MCHC RDW 16.9 H Plt Count Lymph % (Auto) [place] % (Auto) Lymph # [place]kin # 1.0 H Baso # Seg Neutrophils % 76.2 H Seg Neuts % (Manual) Lymphocytes % (Manual) Monocytes % (Manual) Eosinophils % (Manual) Basophils % (Manual) Nucleated RBC % Seg Neutrophils # 11.9 H Seg Neutrophils # Man Lymphocytes # (Manual) Monocytes # (Manual) Eosinophils # (Manual) Basophils # (Manual) PT INR Fibrinogen dRVVT Confirm Interp Factor V Activity POC ABG pH POC ABG pCO2 POC ABG pO2 ABG pO2 ABG HCO3 ABG Base Excess ABG Hemoglobin Oxyhemoglobin Sodium Potassium Chloride Carbon Dioxide BUN 87 H Creatinine 1.8 H Glucose 119 H POC Glucose 115 H Lactic Acid Calcium Phosphorus Magnesium Direct Bilirubin AST ALT Alkaline Phosphatase Lactate Dehydrogenase Troponin T C-Reactive Protein Total Protein Albumin Prealbumin Triglycerides Cholesterol LDL Cholesterol Direct HDL Cholesterol Urine pH Urine WBC (Auto) Urine Creatinine Urine Total Protein Fluid Total Protein Vancomycin Trough Rheumatoid Factor Complement C4 Miscellaneous Test Crossmatch 12/30/16 12/30/16 12/31/16 17:27 23:21 04:00 WBC RBC Hgb Hct MCV MCH MCHC RDW Plt Count Lymph % (Auto) [place] % (Auto) Lymph # [place] # Baso # Seg Neutrophils % Seg Neuts % (Manual) Lymphocytes % (Manual) Monocytes % (Manual) Eosinophils % (Manual) Basophils % (Manual) Nucleated RBC % Seg Neutrophils # Seg Neutrophils # Man Lymphocytes # (Manual) Monocytes # (Manual) Eosinophils # (Manual) Basophils # (Manual) PT INR Fibrinogen dRVVT Confirm Interp Factor V Activity POC ABG pH POC ABG pCO2 POC ABG pO2 ABG pO2 ABG HCO3 ABG Base Excess ABG Hemoglobin Oxyhemoglobin Sodium Potassium Chloride Carbon Dioxide BUN 59 H Creatinine Glucose 298 H POC Glucose 144 H 125 H Lactic Acid Calcium Phosphorus Magnesium Direct Bilirubin AST ALT Alkaline Phosphatase Lactate Dehydrogenase Troponin T C-Reactive Protein Total Protein Albumin Prealbumin Triglycerides Cholesterol LDL Cholesterol Direct HDL Cholesterol Urine pH Urine WBC (Auto) Urine Creatinine Urine Total Protein Fluid Total Protein Vancomycin Trough Rheumatoid Factor Complement C4 Miscellaneous Test Crossmatch 12/31/16 12/31/16 12/31/16 05:11 12:18 18:17 WBC RBC Hgb Hct MCV MCH MCHC RDW Plt Count Lymph % (Auto) [place] % (Auto) Lymph # [place] # Baso # Seg Neutrophils % Seg Neuts % (Manual) Lymphocytes % (Manual) Monocytes % (Manual) Eosinophils % (Manual) Basophils % (Manual) Nucleated RBC % Seg Neutrophils # Seg Neutrophils # Man Lymphocytes # (Manual) Monocytes # (Manual) Eosinophils # (Manual) Basophils # (Manual) PT INR Fibrinogen dRVVT Confirm Interp Factor V Activity POC ABG pH POC ABG pCO2 POC ABG pO2 ABG pO2 ABG HCO3 ABG Base Excess ABG Hemoglobin Oxyhemoglobin Sodium Potassium Chloride Carbon Dioxide BUN Creatinine Glucose POC Glucose 167 H 125 H 133 H Lactic Acid Calcium Phosphorus Magnesium Direct Bilirubin AST ALT Alkaline Phosphatase Lactate Dehydrogenase Troponin T C-Reactive Protein Total Protein Albumin Prealbumin Triglycerides Cholesterol LDL Cholesterol Direct HDL Cholesterol Urine pH Urine WBC (Auto) Urine Creatinine Urine Total Protein Fluid Total Protein Vancomycin Trough Rheumatoid Factor Complement C4 Miscellaneous Test Crossmatch 12/31/16 01/01/17 01/01/17 23:55 05:00 05:12 WBC RBC Hgb Hct MCV MCH MCHC RDW Plt Count Lymph % (Auto) [place] % (Auto) Lymph # [place] # Baso # Seg Neutrophils % Seg Neuts % (Manual) Lymphocytes % (Manual) Monocytes % (Manual) Eosinophils % (Manual) Basophils % (Manual) Nucleated RBC % Seg Neutrophils # Seg Neutrophils # Man Lymphocytes # (Manual) Monocytes # (Manual) Eosinophils # (Manual) Basophils # (Manual) PT INR Fibrinogen dRVVT Confirm Interp Factor V Activity POC ABG pH POC ABG pCO2 POC ABG pO2 ABG pO2 ABG HCO3 ABG Base Excess ABG Hemoglobin Oxyhemoglobin Sodium Potassium Chloride Carbon Dioxide BUN 76 H Creatinine 1.5 H Glucose 109 H POC Glucose 129 H 129 H Lactic Acid Calcium Phosphorus Magnesium Direct Bilirubin AST ALT Alkaline Phosphatase 536 H Lactate Dehydrogenase Troponin T C-Reactive Protein Total Protein Albumin 1.5 L Prealbumin Triglycerides Cholesterol LDL Cholesterol Direct HDL Cholesterol Urine pH Urine WBC (Auto) Urine Creatinine Urine Total Protein Fluid Total Protein Vancomycin Trough Rheumatoid Factor Complement C4 Miscellaneous Test Crossmatch 01/01/17 01/01/17 01/01/17 12:25 17:01 23:32 WBC RBC Hgb Hct MCV MCH MCHC RDW Plt Count Lymph % (Auto) [place] % (Auto) Lymph # [place] # Baso # Seg Neutrophils % Seg Neuts % (Manual) Lymphocytes % (Manual) Monocytes % (Manual) Eosinophils % (Manual) Basophils % (Manual) Nucleated RBC % Seg Neutrophils # Seg Neutrophils # Man Lymphocytes # (Manual) Monocytes # (Manual) Eosinophils # (Manual) Basophils # (Manual) PT INR Fibrinogen dRVVT Confirm Interp Factor V Activity POC ABG pH POC ABG pCO2 POC ABG pO2 ABG pO2 ABG HCO3 ABG Base Excess ABG Hemoglobin Oxyhemoglobin Sodium Potassium Chloride Carbon Dioxide BUN Creatinine Glucose POC Glucose 140 H 142 H 112 H Lactic Acid Calcium Phosphorus Magnesium Direct Bilirubin AST ALT Alkaline Phosphatase Lactate Dehydrogenase Troponin T C-Reactive Protein Total Protein Albumin Prealbumin Triglycerides Cholesterol LDL Cholesterol Direct HDL Cholesterol Urine pH Urine WBC (Auto) Urine Creatinine Urine Total Protein Fluid Total Protein Vancomycin Trough Rheumatoid Factor Complement C4 Miscellaneous Test Crossmatch 01/02/17 01/02/17 01/02/17 04:56 06:00 11:37 WBC RBC Hgb Hct MCV MCH MCHC RDW Plt Count Lymph % (Auto) [place] % (Auto) Lymph # [place] # Baso # Seg Neutrophils % Seg Neuts % (Manual) Lymphocytes % (Manual) Monocytes % (Manual) Eosinophils % (Manual) Basophils % (Manual) Nucleated RBC % Seg Neutrophils # Seg Neutrophils # Man Lymphocytes # (Manual) Monocytes # (Manual) Eosinophils # (Manual) Basophils # (Manual) PT INR Fibrinogen dRVVT Confirm Interp Factor V Activity POC ABG pH POC ABG pCO2 POC ABG pO2 ABG pO2 ABG HCO3 ABG Base Excess ABG Hemoglobin Oxyhemoglobin Sodium Potassium Chloride Carbon Dioxide BUN 88 H Creatinine 1.7 H Glucose 113 H POC Glucose 136 H 200 H Lactic Acid Calcium Phosphorus Magnesium Direct Bilirubin AST ALT Alkaline Phosphatase Lactate Dehydrogenase Troponin T C-Reactive Protein Total Protein Albumin Prealbumin Triglycerides Cholesterol LDL Cholesterol Direct HDL Cholesterol Urine pH Urine WBC (Auto) Urine Creatinine Urine Total Protein Fluid Total Protein Vancomycin Trough Rheumatoid Factor Complement C4 Miscellaneous Test Crossmatch 01/02/17 01/02/17 01/03/17 17:42 22:52 04:54 WBC RBC Hgb Hct MCV MCH MCHC RDW Plt Count Lymph % (Auto) [place] % (Auto) Lymph # [place] # Baso # Seg Neutrophils % Seg Neuts % (Manual) Lymphocytes % (Manual) Monocytes % (Manual) Eosinophils % (Manual) Basophils % (Manual) Nucleated RBC % Seg Neutrophils # Seg Neutrophils # Man Lymphocytes # (Manual) Monocytes # (Manual) Eosinophils # (Manual) Basophils # (Manual) PT INR Fibrinogen dRVVT Confirm Interp Factor V Activity POC ABG pH POC ABG pCO2 POC ABG pO2 ABG pO2 ABG HCO3 ABG Base Excess ABG Hemoglobin Oxyhemoglobin Sodium Potassium Chloride Carbon Dioxide BUN Creatinine Glucose POC Glucose 112 H 133 H 111 H Lactic Acid Calcium Phosphorus Magnesium Direct Bilirubin AST ALT Alkaline Phosphatase Lactate Dehydrogenase Troponin T C-Reactive Protein Total Protein Albumin Prealbumin Triglycerides Cholesterol LDL Cholesterol Direct HDL Cholesterol Urine pH Urine WBC (Auto) Urine Creatinine Urine Total Protein Fluid Total Protein Vancomycin Trough Rheumatoid Factor Complement C4 Miscellaneous Test Crossmatch 01/03/17 01/03/17 01/03/17 05:00 05:00 14:02 WBC 11.2 H RBC 2.56 L Hgb 7.2 L Hct 22.3 L MCV MCH MCHC RDW 17.3 H Plt Count Lymph % (Auto) [place] % (Auto) 10.0 H Lymph # [place] # 1.1 H Baso # Seg Neutrophils % 70.5 H Seg Neuts % (Manual) Lymphocytes % (Manual) Monocytes % (Manual) Eosinophils % (Manual) Basophils % (Manual) Nucleated RBC % Seg Neutrophils # 7.9 H Seg Neutrophils # Man Lymphocytes # (Manual) Monocytes # (Manual) Eosinophils # (Manual) Basophils # (Manual) PT INR Fibrinogen dRVVT Confirm Interp Factor V Activity POC ABG pH POC ABG pCO2 POC ABG pO2 ABG pO2 ABG HCO3 ABG Base Excess ABG Hemoglobin Oxyhemoglobin Sodium Potassium Chloride Carbon Dioxide BUN 60 H Creatinine 1.3 H Glucose 110 H POC Glucose 119 H Lactic Acid Calcium Phosphorus Magnesium Direct Bilirubin AST ALT Alkaline Phosphatase Lactate Dehydrogenase Troponin T C-Reactive Protein Total Protein Albumin Prealbumin Triglycerides Cholesterol LDL Cholesterol Direct HDL Cholesterol Urine pH Urine WBC (Auto) Urine Creatinine Urine Total Protein Fluid Total Protein Vancomycin Trough Rheumatoid Factor Complement C4 Miscellaneous Test Crossmatch 01/03/17 01/03/17 01/04/17 18:13 23:40 05:57 WBC RBC Hgb Hct MCV MCH MCHC RDW Plt Count Lymph % (Auto) [place] % (Auto) Lymph # [place] # Baso # Seg Neutrophils % Seg Neuts % (Manual) Lymphocytes % (Manual) Monocytes % (Manual) Eosinophils % (Manual) Basophils % (Manual) Nucleated RBC % Seg Neutrophils # Seg Neutrophils # Man Lymphocytes # (Manual) Monocytes # (Manual) Eosinophils # (Manual) Basophils # (Manual) PT INR Fibrinogen dRVVT Confirm Interp Factor V Activity POC ABG pH POC ABG pCO2 POC ABG pO2 ABG pO2 ABG HCO3 ABG Base Excess ABG Hemoglobin Oxyhemoglobin Sodium Potassium Chloride Carbon Dioxide BUN Creatinine Glucose POC Glucose 107 H 129 H 111 H Lactic Acid Calcium Phosphorus Magnesium Direct Bilirubin AST ALT Alkaline Phosphatase Lactate Dehydrogenase Troponin T C-Reactive Protein Total Protein Albumin Prealbumin Triglycerides Cholesterol LDL Cholesterol Direct HDL Cholesterol Urine pH Urine WBC (Auto) Urine Creatinine Urine Total Protein Fluid Total Protein Vancomycin Trough Rheumatoid Factor Complement C4 Miscellaneous Test Crossmatch 01/04/17 01/04/17 01/04/17 12:46 15:27 17:11 WBC RBC Hgb Hct MCV MCH MCHC RDW Plt Count Lymph % (Auto) [place] % (Auto) Lymph # [place] # Baso # Seg Neutrophils % Seg Neuts % (Manual) Lymphocytes % (Manual) Monocytes % (Manual) Eosinophils % (Manual) Basophils % (Manual) Nucleated RBC % Seg Neutrophils # Seg Neutrophils # Man Lymphocytes # (Manual) Monocytes # (Manual) Eosinophils # (Manual) Basophils # (Manual) PT INR Fibrinogen dRVVT Confirm Interp Factor V Activity POC ABG pH POC ABG pCO2 POC ABG pO2 ABG pO2 ABG HCO3 ABG Base Excess ABG Hemoglobin Oxyhemoglobin Sodium Potassium Chloride Carbon Dioxide BUN 43 H Creatinine Glucose 124 H POC Glucose 159 H 125 H Lactic Acid Calcium 8.0 L Phosphorus 2.10 L Magnesium Direct Bilirubin AST ALT Alkaline Phosphatase Lactate Dehydrogenase Troponin T C-Reactive Protein Total Protein Albumin Prealbumin Triglycerides Cholesterol LDL Cholesterol Direct HDL Cholesterol Urine pH Urine WBC (Auto) Urine Creatinine Urine Total Protein Fluid Total Protein Vancomycin Trough Rheumatoid Factor Complement C4 Miscellaneous Test Crossmatch 01/04/17 01/05/17 01/05/17 23:31 04:00 05:46 WBC RBC Hgb Hct MCV MCH MCHC RDW Plt Count Lymph % (Auto) [place] % (Auto) Lymph # [place] # Baso # Seg Neutrophils % Seg Neuts % (Manual) Lymphocytes % (Manual) Monocytes % (Manual) Eosinophils % (Manual) Basophils % (Manual) Nucleated RBC % Seg Neutrophils # Seg Neutrophils # Man Lymphocytes # (Manual) Monocytes # (Manual) Eosinophils # (Manual) Basophils # (Manual) PT INR Fibrinogen dRVVT Confirm Interp Factor V Activity POC ABG pH POC ABG pCO2 POC ABG pO2 ABG pO2 ABG HCO3 ABG Base Excess ABG Hemoglobin Oxyhemoglobin Sodium Potassium Chloride Carbon Dioxide BUN 52 H Creatinine 1.3 H Glucose 113 H POC Glucose 123 H 118 H Lactic Acid Calcium Phosphorus 2.40 L Magnesium Direct Bilirubin AST ALT Alkaline Phosphatase Lactate Dehydrogenase Troponin T C-Reactive Protein Total Protein Albumin Prealbumin Triglycerides Cholesterol LDL Cholesterol Direct HDL Cholesterol Urine pH Urine WBC (Auto) Urine Creatinine Urine Total Protein Fluid Total Protein Vancomycin Trough Rheumatoid Factor Complement C4 Miscellaneous Test Crossmatch 01/05/17 01/05/17 01/05/17 11:41 17:48 23:27 WBC RBC Hgb Hct MCV MCH MCHC RDW Plt Count Lymph % (Auto) [place] % (Auto) Lymph # [place] # Baso # Seg Neutrophils % Seg Neuts % (Manual) Lymphocytes % (Manual) Monocytes % (Manual) Eosinophils % (Manual) Basophils % (Manual) Nucleated RBC % Seg Neutrophils # Seg Neutrophils # Man Lymphocytes # (Manual) Monocytes # (Manual) Eosinophils # (Manual) Basophils # (Manual) PT INR Fibrinogen dRVVT Confirm Interp Factor V Activity POC ABG pH POC ABG pCO2 POC ABG pO2 ABG pO2 ABG HCO3 ABG Base Excess ABG Hemoglobin Oxyhemoglobin Sodium Potassium Chloride Carbon Dioxide BUN Creatinine Glucose POC Glucose 163 H 142 H 155 H Lactic Acid Calcium Phosphorus Magnesium Direct Bilirubin AST ALT Alkaline Phosphatase Lactate Dehydrogenase Troponin T C-Reactive Protein Total Protein Albumin Prealbumin Triglycerides Cholesterol LDL Cholesterol Direct HDL Cholesterol Urine pH Urine WBC (Auto) Urine Creatinine Urine Total Protein Fluid Total Protein Vancomycin Trough Rheumatoid Factor Complement C4 Miscellaneous Test Crossmatch 01/06/17 01/06/17 01/06/17 05:20 07:35 11:18 WBC RBC Hgb Hct MCV MCH MCHC RDW Plt Count Lymph % (Auto) [place] % (Auto) Lymph # [place] # Baso # Seg Neutrophils % Seg Neuts % (Manual) Lymphocytes % (Manual) Monocytes % (Manual) Eosinophils % (Manual) Basophils % (Manual) Nucleated RBC % Seg Neutrophils # Seg Neutrophils # Man Lymphocytes # (Manual) Monocytes # (Manual) Eosinophils # (Manual) Basophils # (Manual) PT INR Fibrinogen dRVVT Confirm Interp Factor V Activity POC ABG pH POC ABG pCO2 POC ABG pO2 ABG pO2 ABG HCO3 ABG Base Excess ABG Hemoglobin Oxyhemoglobin Sodium Potassium Chloride Carbon Dioxide BUN 74 H Creatinine 1.6 H Glucose 135 H POC Glucose 108 H 149 H Lactic Acid Calcium Phosphorus Magnesium Direct Bilirubin AST ALT Alkaline Phosphatase Lactate Dehydrogenase Troponin T C-Reactive Protein Total Protein Albumin Prealbumin Triglycerides Cholesterol LDL Cholesterol Direct HDL Cholesterol Urine pH Urine WBC (Auto) Urine Creatinine Urine Total Protein Fluid Total Protein Vancomycin Trough Rheumatoid Factor Complement C4 Miscellaneous Test Crossmatch 01/06/17 01/07/17 01/07/17 17:17 00:23 05:31 WBC RBC Hgb Hct MCV MCH MCHC RDW Plt Count Lymph % (Auto) [place] % (Auto) Lymph # [place] # Baso # Seg Neutrophils % Seg Neuts % (Manual) Lymphocytes % (Manual) Monocytes % (Manual) Eosinophils % (Manual) Basophils % (Manual) Nucleated RBC % Seg Neutrophils # Seg Neutrophils # Man Lymphocytes # (Manual) Monocytes # (Manual) Eosinophils # (Manual) Basophils # (Manual) PT INR Fibrinogen dRVVT Confirm Interp Factor V Activity POC ABG pH POC ABG pCO2 POC ABG pO2 ABG pO2 ABG HCO3 ABG Base Excess ABG Hemoglobin Oxyhemoglobin Sodium Potassium Chloride Carbon Dioxide BUN Creatinine Glucose POC Glucose 146 H 165 H 153 H Lactic Acid Calcium Phosphorus Magnesium Direct Bilirubin AST ALT Alkaline Phosphatase Lactate Dehydrogenase Troponin T C-Reactive Protein Total Protein Albumin Prealbumin Triglycerides Cholesterol LDL Cholesterol Direct HDL Cholesterol Urine pH Urine WBC (Auto) Urine Creatinine Urine Total Protein Fluid Total Protein Vancomycin Trough Rheumatoid Factor Complement C4 Miscellaneous Test Crossmatch 01/07/17 01/07/17 01/07/17 06:00 11:39 17:11 WBC RBC Hgb Hct MCV MCH MCHC RDW Plt Count Lymph % (Auto) [place] % (Auto) Lymph # [place] # Baso # Seg Neutrophils % Seg Neuts % (Manual) Lymphocytes % (Manual) Monocytes % (Manual) Eosinophils % (Manual) Basophils % (Manual) Nucleated RBC % Seg Neutrophils # Seg Neutrophils # Man Lymphocytes # (Manual) Monocytes # (Manual) Eosinophils # (Manual) Basophils # (Manual) PT INR Fibrinogen dRVVT Confirm Interp Factor V Activity POC ABG pH POC ABG pCO2 POC ABG pO2 ABG pO2 ABG HCO3 ABG Base Excess ABG Hemoglobin Oxyhemoglobin Sodium Potassium Chloride Carbon Dioxide BUN 42 H Creatinine Glucose 175 H POC Glucose 163 H 163 H Lactic Acid Calcium Phosphorus 2.40 L D Magnesium Direct Bilirubin AST ALT Alkaline Phosphatase Lactate Dehydrogenase Troponin T C-Reactive Protein Total Protein Albumin Prealbumin Triglycerides Cholesterol LDL Cholesterol Direct HDL Cholesterol Urine pH Urine WBC (Auto) Urine Creatinine Urine Total Protein Fluid Total Protein Vancomycin Trough Rheumatoid Factor Complement C4 Miscellaneous Test Crossmatch 01/07/17 01/08/17 01/08/17 23:40 05:00 05:00 WBC 27.4 H RBC 2.27 L Hgb 6.1 L Hct 20.4 L MCV MCH 27 L MCHC RDW 17.8 H Plt Count Lymph % (Auto) Wilkin % (Auto) Lymph # [place] # Baso # Seg Neutrophils % Seg Neuts % (Manual) Lymphocytes % (Manual) Monocytes % (Manual) Eosinophils % (Manual) Basophils % (Manual) Nucleated RBC % Seg Neutrophils # Seg Neutrophils # Man Lymphocytes # (Manual) Monocytes # (Manual) Eosinophils # (Manual) Basophils # (Manual) PT INR Fibrinogen dRVVT Confirm Interp Factor V Activity POC ABG pH POC ABG pCO2 POC ABG pO2 ABG pO2 ABG HCO3 ABG Base Excess ABG Hemoglobin Oxyhemoglobin Sodium Potassium Chloride Carbon Dioxide 16 L D BUN 62 H Creatinine 1.6 H D Glucose 103 H POC Glucose 135 H Lactic Acid Calcium Phosphorus Magnesium Direct Bilirubin AST ALT Alkaline Phosphatase Lactate Dehydrogenase Troponin T C-Reactive Protein Total Protein Albumin Prealbumin Triglycerides Cholesterol LDL Cholesterol Direct HDL Cholesterol Urine pH Urine WBC (Auto) Urine Creatinine Urine Total Protein Fluid Total Protein Vancomycin Trough Rheumatoid Factor Complement C4 Miscellaneous Test Crossmatch 01/08/17 01/08/17 01/08/17 05:25 10:37 10:37 WBC RBC Hgb Hct MCV MCH MCHC RDW Plt Count Lymph % (Auto) Wilkin % (Auto) Lymph # [place] # Baso # Seg Neutrophils % Seg Neuts % (Manual) Lymphocytes % (Manual) Monocytes % (Manual) Eosinophils % (Manual) Basophils % (Manual) Nucleated RBC % Seg Neutrophils # Seg Neutrophils # Man Lymphocytes # (Manual) Monocytes # (Manual) Eosinophils # (Manual) Basophils # (Manual) PT INR Fibrinogen dRVVT Confirm Interp Factor V Activity POC ABG pH POC ABG pCO2 POC ABG pO2 ABG pO2 ABG HCO3 ABG Base Excess ABG Hemoglobin Oxyhemoglobin Sodium Potassium Chloride Carbon Dioxide BUN Creatinine Glucose POC Glucose 106 H Lactic Acid Calcium Phosphorus Magnesium Direct Bilirubin AST ALT Alkaline Phosphatase Lactate Dehydrogenase Troponin T C-Reactive Protein 24.40 H Total Protein Albumin Prealbumin Triglycerides Cholesterol LDL Cholesterol Direct HDL Cholesterol Urine pH Urine WBC (Auto) Urine Creatinine Urine Total Protein Fluid Total Protein Vancomycin Trough Rheumatoid Factor Complement C4 Miscellaneous Test Crossmatch See Detail 01/08/17 01/08/17 01/08/17 10:37 11:33 15:15 WBC RBC Hgb Hct MCV MCH MCHC RDW Plt Count Lymph % (Auto) [place] % (Auto) Lymph # [place] # Baso # Seg Neutrophils % Seg Neuts % (Manual) Lymphocytes % (Manual) Monocytes % (Manual) Eosinophils % (Manual) Basophils % (Manual) Nucleated RBC % Seg Neutrophils # Seg Neutrophils # Man Lymphocytes # (Manual) Monocytes # (Manual) Eosinophils # (Manual) Basophils # (Manual) PT INR Fibrinogen dRVVT Confirm Interp Factor V Activity POC ABG pH POC ABG pCO2 POC ABG pO2 ABG pO2 ABG HCO3 ABG Base Excess ABG Hemoglobin Oxyhemoglobin Sodium Potassium Chloride Carbon Dioxide BUN Creatinine Glucose POC Glucose 157 H Lactic Acid 9.70 H* 9.10 H* Calcium Phosphorus Magnesium Direct Bilirubin AST ALT Alkaline Phosphatase Lactate Dehydrogenase Troponin T C-Reactive Protein Total Protein Albumin Prealbumin Triglycerides Cholesterol LDL Cholesterol Direct HDL Cholesterol Urine pH Urine WBC (Auto) Urine Creatinine Urine Total Protein Fluid Total Protein Vancomycin Trough Rheumatoid Factor Complement C4 Miscellaneous Test Crossmatch 01/08/17 01/08/17 01/09/17 17:19 23:12 04:40 WBC RBC Hgb Hct MCV MCH MCHC RDW Plt Count Lymph % (Auto) [place] % (Auto) Lymph # [place] # Baso # Seg Neutrophils % Seg Neuts % (Manual) Lymphocytes % (Manual) Monocytes % (Manual) Eosinophils % (Manual) Basophils % (Manual) Nucleated RBC % Seg Neutrophils # Seg Neutrophils # Man Lymphocytes # (Manual) Monocytes # (Manual) Eosinophils # (Manual) Basophils # (Manual) PT INR Fibrinogen dRVVT Confirm Interp Factor V Activity POC ABG pH POC ABG pCO2 POC ABG pO2 ABG pO2 ABG HCO3 ABG Base Excess ABG Hemoglobin Oxyhemoglobin Sodium 147 H Potassium Chloride Carbon Dioxide BUN 82 H Creatinine 1.8 H Glucose 137 H POC Glucose 164 H 157 H Lactic Acid Calcium Phosphorus Magnesium Direct Bilirubin AST ALT Alkaline Phosphatase Lactate Dehydrogenase Troponin T C-Reactive Protein Total Protein Albumin Prealbumin Triglycerides Cholesterol LDL Cholesterol Direct HDL Cholesterol Urine pH Urine WBC (Auto) Urine Creatinine Urine Total Protein Fluid Total Protein Vancomycin Trough Rheumatoid Factor Complement C4 Miscellaneous Test Crossmatch 01/09/17 01/09/17 01/09/17 05:42 08:22 10:57 WBC RBC Hgb Hct MCV MCH MCHC RDW Plt Count Lymph % (Auto) [place] % (Auto) Lymph # [place] # Baso # Seg Neutrophils % Seg Neuts % (Manual) Lymphocytes % (Manual) Monocytes % (Manual) Eosinophils % (Manual) Basophils % (Manual) Nucleated RBC % Seg Neutrophils # Seg Neutrophils # Man Lymphocytes # (Manual) Monocytes # (Manual) Eosinophils # (Manual) Basophils # (Manual) PT INR Fibrinogen dRVVT Confirm Interp Factor V Activity POC ABG pH POC ABG pCO2 POC ABG pO2 ABG pO2 ABG HCO3 ABG Base Excess ABG Hemoglobin Oxyhemoglobin Sodium Potassium Chloride Carbon Dioxide BUN Creatinine Glucose POC Glucose 156 H 122 H Lactic Acid 2.30 H* Calcium Phosphorus Magnesium Direct Bilirubin AST ALT Alkaline Phosphatase Lactate Dehydrogenase Troponin T C-Reactive Protein Total Protein Albumin Prealbumin Triglycerides Cholesterol LDL Cholesterol Direct HDL Cholesterol Urine pH Urine WBC (Auto) Urine Creatinine Urine Total Protein Fluid Total Protein Vancomycin Trough Rheumatoid Factor Complement C4 Miscellaneous Test Crossmatch 01/09/17 01/09/17 01/09/17 13:30 17:14 18:45 WBC RBC Hgb Hct MCV MCH MCHC RDW Plt Count Lymph % (Auto) [place] % (Auto) Lymph # [place] # Baso # Seg Neutrophils % Seg Neuts % (Manual) Lymphocytes % (Manual) Monocytes % (Manual) Eosinophils % (Manual) Basophils % (Manual) Nucleated RBC % Seg Neutrophils # Seg Neutrophils # Man Lymphocytes # (Manual) Monocytes # (Manual) Eosinophils # (Manual) Basophils # (Manual) PT INR Fibrinogen dRVVT Confirm Interp Factor V Activity POC ABG pH POC ABG pCO2 POC ABG pO2 ABG pO2 ABG HCO3 ABG Base Excess ABG Hemoglobin Oxyhemoglobin Sodium Potassium Chloride Carbon Dioxide BUN Creatinine Glucose POC Glucose 127 H Lactic Acid Calcium Phosphorus Magnesium Direct Bilirubin AST ALT Alkaline Phosphatase Lactate Dehydrogenase Troponin T C-Reactive Protein 24.70 H Total Protein Albumin Prealbumin Triglycerides Cholesterol LDL Cholesterol Direct HDL Cholesterol Urine pH Urine WBC (Auto) Urine Creatinine Urine Total Protein Fluid Total Protein Vancomycin Trough Rheumatoid Factor Complement C4 Miscellaneous Test Flexitest 1 H Crossmatch 01/10/17 01/10/17 01/10/17 01:21 04:00 04:00 WBC 18.1 H RBC 3.22 L Hgb 8.8 L Hct 27.0 L D MCV MCH 27 L MCHC RDW 17.0 H Plt Count Lymph % (Auto) [place] % (Auto) Lymph # [place] # Baso # Seg Neutrophils % Seg Neuts % (Manual) Lymphocytes % (Manual) Monocytes % (Manual) Eosinophils % (Manual) Basophils % (Manual) Nucleated RBC % Seg Neutrophils # Seg Neutrophils # Man Lymphocytes # (Manual) Monocytes # (Manual) Eosinophils # (Manual) Basophils # (Manual) PT INR Fibrinogen dRVVT Confirm Interp Factor V Activity POC ABG pH POC ABG pCO2 POC ABG pO2 ABG pO2 ABG HCO3 ABG Base Excess ABG Hemoglobin Oxyhemoglobin Sodium Potassium Chloride Carbon Dioxide BUN 59 H Creatinine 1.3 H Glucose 122 H POC Glucose 160 H Lactic Acid Calcium Phosphorus Magnesium Direct Bilirubin AST ALT Alkaline Phosphatase Lactate Dehydrogenase Troponin T C-Reactive Protein Total Protein Albumin Prealbumin Triglycerides Cholesterol LDL Cholesterol Direct HDL Cholesterol Urine pH Urine WBC (Auto) Urine Creatinine Urine Total Protein Fluid Total Protein Vancomycin Trough Rheumatoid Factor Complement C4 Miscellaneous Test Crossmatch 01/10/17 01/10/17 01/10/17 05:36 12:14 17:55 WBC RBC Hgb Hct MCV MCH MCHC RDW Plt Count Lymph % (Auto) [place] % (Auto) Lymph # [place] # Baso # Seg Neutrophils % Seg Neuts % (Manual) Lymphocytes % (Manual) Monocytes % (Manual) Eosinophils % (Manual) Basophils % (Manual) Nucleated RBC % Seg Neutrophils # Seg Neutrophils # Man Lymphocytes # (Manual) Monocytes # (Manual) Eosinophils # (Manual) Basophils # (Manual) PT INR Fibrinogen dRVVT Confirm Interp Factor V Activity POC ABG pH POC ABG pCO2 POC ABG pO2 ABG pO2 ABG HCO3 ABG Base Excess ABG Hemoglobin Oxyhemoglobin Sodium Potassium Chloride Carbon Dioxide BUN Creatinine Glucose POC Glucose 163 H 120 H 144 H Lactic Acid Calcium Phosphorus Magnesium Direct Bilirubin AST ALT Alkaline Phosphatase Lactate Dehydrogenase Troponin T C-Reactive Protein Total Protein Albumin Prealbumin Triglycerides Cholesterol LDL Cholesterol Direct HDL Cholesterol Urine pH Urine WBC (Auto) Urine Creatinine Urine Total Protein Fluid Total Protein Vancomycin Trough Rheumatoid Factor Complement C4 Miscellaneous Test Crossmatch 01/11/17 01/11/17 01/11/17 00:09 04:00 04:00 WBC 15.8 H RBC 3.04 L Hgb 8.2 L Hct 25.5 L MCV MCH 27 L MCHC RDW 17.3 H Plt Count Lymph % (Auto) [place] % (Auto) Lymph # [place] # Baso # Seg Neutrophils % Seg Neuts % (Manual) Lymphocytes % (Manual) Monocytes % (Manual) Eosinophils % (Manual) Basophils % (Manual) Nucleated RBC % Seg Neutrophils # Seg Neutrophils # Man Lymphocytes # (Manual) Monocytes # (Manual) Eosinophils # (Manual) Basophils # (Manual) PT INR Fibrinogen dRVVT Confirm Interp Factor V Activity POC ABG pH POC ABG pCO2 POC ABG pO2 ABG pO2 ABG HCO3 ABG Base Excess ABG Hemoglobin Oxyhemoglobin Sodium Potassium Chloride Carbon Dioxide BUN 78 H Creatinine 1.6 H Glucose 109 H POC Glucose 122 H Lactic Acid Calcium Phosphorus Magnesium Direct Bilirubin AST ALT Alkaline Phosphatase Lactate Dehydrogenase Troponin T C-Reactive Protein Total Protein Albumin Prealbumin Triglycerides Cholesterol LDL Cholesterol Direct HDL Cholesterol Urine pH Urine WBC (Auto) Urine Creatinine Urine Total Protein Fluid Total Protein Vancomycin Trough Rheumatoid Factor Complement C4 Miscellaneous Test Crossmatch 01/11/17 01/11/17 01/11/17 12:46 18:23 23:42 WBC RBC Hgb Hct MCV MCH MCHC RDW Plt Count Lymph % (Auto) [place] % (Auto) Lymph # [place] # Baso # Seg Neutrophils % Seg Neuts % (Manual) Lymphocytes % (Manual) Monocytes % (Manual) Eosinophils % (Manual) Basophils % (Manual) Nucleated RBC % Seg Neutrophils # Seg Neutrophils # Man Lymphocytes # (Manual) Monocytes # (Manual) Eosinophils # (Manual) Basophils # (Manual) PT INR Fibrinogen dRVVT Confirm Interp Factor V Activity POC ABG pH POC ABG pCO2 POC ABG pO2 ABG pO2 ABG HCO3 ABG Base Excess ABG Hemoglobin Oxyhemoglobin Sodium Potassium Chloride Carbon Dioxide BUN Creatinine Glucose POC Glucose 148 H 125 H 124 H Lactic Acid Calcium Phosphorus Magnesium Direct Bilirubin AST ALT Alkaline Phosphatase Lactate Dehydrogenase Troponin T C-Reactive Protein Total Protein Albumin Prealbumin Triglycerides Cholesterol LDL Cholesterol Direct HDL Cholesterol Urine pH Urine WBC (Auto) Urine Creatinine Urine Total Protein Fluid Total Protein Vancomycin Trough Rheumatoid Factor Complement C4 Miscellaneous Test Crossmatch 01/12/17 01/12/17 01/12/17 04:30 04:30 05:47 WBC 15.8 H RBC 3.31 L Hgb 8.9 L Hct 27.9 L MCV MCH 27 L MCHC RDW 17.4 H Plt Count Lymph % (Auto) [place] % (Auto) Lymph # [place] # Baso # Seg Neutrophils % Seg Neuts % (Manual) Lymphocytes % (Manual) Monocytes % (Manual) Eosinophils % (Manual) Basophils % (Manual) Nucleated RBC % Seg Neutrophils # Seg Neutrophils # Man Lymphocytes # (Manual) Monocytes # (Manual) Eosinophils # (Manual) Basophils # (Manual) PT INR Fibrinogen dRVVT Confirm Interp Factor V Activity POC ABG pH POC ABG pCO2 POC ABG pO2 ABG pO2 ABG HCO3 ABG Base Excess ABG Hemoglobin Oxyhemoglobin Sodium Potassium Chloride Carbon Dioxide BUN 57 H Creatinine Glucose 121 H POC Glucose 110 H Lactic Acid Calcium Phosphorus 2.10 L Magnesium Direct Bilirubin AST ALT Alkaline Phosphatase Lactate Dehydrogenase Troponin T C-Reactive Protein Total Protein Albumin Prealbumin Triglycerides Cholesterol LDL Cholesterol Direct HDL Cholesterol Urine pH Urine WBC (Auto) Urine Creatinine Urine Total Protein Fluid Total Protein Vancomycin Trough Rheumatoid Factor Complement C4 Miscellaneous Test Crossmatch 01/12/17 01/12/17 01/12/17 11:35 17:45 23:14 WBC RBC Hgb Hct MCV MCH MCHC RDW Plt Count Lymph % (Auto) [place] % (Auto) Lymph # [place] # Baso # Seg Neutrophils % Seg Neuts % (Manual) Lymphocytes % (Manual) Monocytes % (Manual) Eosinophils % (Manual) Basophils % (Manual) Nucleated RBC % Seg Neutrophils # Seg Neutrophils # Man Lymphocytes # (Manual) Monocytes # (Manual) Eosinophils # (Manual) Basophils # (Manual) PT INR Fibrinogen dRVVT Confirm Interp Factor V Activity POC ABG pH POC ABG pCO2 POC ABG pO2 ABG pO2 ABG HCO3 ABG Base Excess ABG Hemoglobin Oxyhemoglobin Sodium Potassium Chloride Carbon Dioxide BUN Creatinine Glucose POC Glucose 146 H 117 H 123 H Lactic Acid Calcium Phosphorus Magnesium Direct Bilirubin AST ALT Alkaline Phosphatase Lactate Dehydrogenase Troponin T C-Reactive Protein Total Protein Albumin Prealbumin Triglycerides Cholesterol LDL Cholesterol Direct HDL Cholesterol Urine pH Urine WBC (Auto) Urine Creatinine Urine Total Protein Fluid Total Protein Vancomycin Trough Rheumatoid Factor Complement C4 Miscellaneous Test Crossmatch 01/13/17 01/13/17 01/13/17 05:32 06:00 12:10 WBC RBC Hgb Hct MCV MCH MCHC RDW Plt Count Lymph % (Auto) [place] % (Auto) Lymph # [place] # Baso # Seg Neutrophils % Seg Neuts % (Manual) Lymphocytes % (Manual) Monocytes % (Manual) Eosinophils % (Manual) Basophils % (Manual) Nucleated RBC % Seg Neutrophils # Seg Neutrophils # Man Lymphocytes # (Manual) Monocytes # (Manual) Eosinophils # (Manual) Basophils # (Manual) PT INR Fibrinogen dRVVT Confirm Interp Factor V Activity POC ABG pH POC ABG pCO2 POC ABG pO2 ABG pO2 ABG HCO3 ABG Base Excess ABG Hemoglobin Oxyhemoglobin Sodium Potassium Chloride Carbon Dioxide BUN 80 H Creatinine 1.4 H Glucose 106 H POC Glucose 106 H Lactic Acid Calcium Phosphorus Magnesium Direct Bilirubin AST ALT Alkaline Phosphatase Lactate Dehydrogenase Troponin T C-Reactive Protein Total Protein Albumin Prealbumin Triglycerides Cholesterol LDL Cholesterol Direct HDL Cholesterol Urine pH Urine WBC (Auto) Urine Creatinine Urine Total Protein Fluid Total Protein 3.0 L Vancomycin Trough Rheumatoid Factor Complement C4 Miscellaneous Test Crossmatch 01/13/17 01/13/17 01/13/17 12:17 15:50 17:30 WBC RBC Hgb Hct MCV MCH MCHC RDW Plt Count Lymph % (Auto) [place] % (Auto) Lymph # [place] # Baso # Seg Neutrophils % Seg Neuts % (Manual) Lymphocytes % (Manual) Monocytes % (Manual) Eosinophils % (Manual) Basophils % (Manual) Nucleated RBC % Seg Neutrophils # Seg Neutrophils # Man Lymphocytes # (Manual) Monocytes # (Manual) Eosinophils # (Manual) Basophils # (Manual) PT 15.4 H INR 1.16 H Fibrinogen dRVVT Confirm Interp Factor V Activity POC ABG pH POC ABG pCO2 POC ABG pO2 ABG pO2 ABG HCO3 ABG Base Excess ABG Hemoglobin Oxyhemoglobin Sodium Potassium Chloride Carbon Dioxide BUN Creatinine Glucose POC Glucose 168 H 110 H Lactic Acid Calcium Phosphorus Magnesium Direct Bilirubin AST ALT Alkaline Phosphatase Lactate Dehydrogenase Troponin T C-Reactive Protein Total Protein Albumin Prealbumin Triglycerides Cholesterol LDL Cholesterol Direct HDL Cholesterol Urine pH Urine WBC (Auto) Urine Creatinine Urine Total Protein Fluid Total Protein Vancomycin Trough Rheumatoid Factor Complement C4 Miscellaneous Test Crossmatch 01/13/17 01/14/17 01/14/17 23:42 05:24 05:30 WBC RBC Hgb Hct MCV MCH MCHC RDW Plt Count Lymph % (Auto) [place] % (Auto) Lymph # [place] # Baso # Seg Neutrophils % Seg Neuts % (Manual) Lymphocytes % (Manual) Monocytes % (Manual) Eosinophils % (Manual) Basophils % (Manual) Nucleated RBC % Seg Neutrophils # Seg Neutrophils # Man Lymphocytes # (Manual) Monocytes # (Manual) Eosinophils # (Manual) Basophils # (Manual) PT INR Fibrinogen dRVVT Confirm Interp Factor V Activity POC ABG pH POC ABG pCO2 POC ABG pO2 ABG pO2 ABG HCO3 ABG Base Excess ABG Hemoglobin Oxyhemoglobin Sodium Potassium Chloride Carbon Dioxide BUN 58 H Creatinine Glucose 114 H POC Glucose 155 H 121 H Lactic Acid Calcium Phosphorus Magnesium Direct Bilirubin AST ALT Alkaline Phosphatase Lactate Dehydrogenase Troponin T C-Reactive Protein Total Protein Albumin Prealbumin Triglycerides Cholesterol LDL Cholesterol Direct HDL Cholesterol Urine pH Urine WBC (Auto) Urine Creatinine Urine Total Protein Fluid Total Protein Vancomycin Trough Rheumatoid Factor Complement C4 Miscellaneous Test Crossmatch 01/14/17 01/14/17 01/15/17 12:48 17:36 00:15 WBC RBC Hgb Hct MCV MCH MCHC RDW Plt Count Lymph % (Auto) [place] % (Auto) Lymph # [place] # Baso # Seg Neutrophils % Seg Neuts % (Manual) Lymphocytes % (Manual) Monocytes % (Manual) Eosinophils % (Manual) Basophils % (Manual) Nucleated RBC % Seg Neutrophils # Seg Neutrophils # Man Lymphocytes # (Manual) Monocytes # (Manual) Eosinophils # (Manual) Basophils # (Manual) PT INR Fibrinogen dRVVT Confirm Interp Factor V Activity POC ABG pH POC ABG pCO2 POC ABG pO2 ABG pO2 ABG HCO3 ABG Base Excess ABG Hemoglobin Oxyhemoglobin Sodium Potassium Chloride Carbon Dioxide BUN Creatinine Glucose POC Glucose 130 H 135 H 132 H Lactic Acid Calcium Phosphorus Magnesium Direct Bilirubin AST ALT Alkaline Phosphatase Lactate Dehydrogenase Troponin T C-Reactive Protein Total Protein Albumin Prealbumin Triglycerides Cholesterol LDL Cholesterol Direct HDL Cholesterol Urine pH Urine WBC (Auto) Urine Creatinine Urine Total Protein Fluid Total Protein Vancomycin Trough Rheumatoid Factor Complement C4 Miscellaneous Test Crossmatch 01/15/17 01/15/17 01/15/17 05:01 11:55 12:45 WBC 16.2 H RBC 3.00 L Hgb 8.1 L Hct 25.4 L MCV MCH 27 L MCHC RDW 17.6 H Plt Count Lymph % (Auto) 11.7 L [place] % (Auto) 7.8 H Lymph # [place] # 1.3 H Baso # Seg Neutrophils % 80.1 H Seg Neuts % (Manual) Lymphocytes % (Manual) Monocytes % (Manual) Eosinophils % (Manual) Basophils % (Manual) Nucleated RBC % Seg Neutrophils # 13.0 H Seg Neutrophils # Man Lymphocytes # (Manual) Monocytes # (Manual) Eosinophils # (Manual) Basophils # (Manual) PT INR Fibrinogen dRVVT Confirm Interp Factor V Activity POC ABG pH POC ABG pCO2 POC ABG pO2 ABG pO2 ABG HCO3 ABG Base Excess ABG Hemoglobin Oxyhemoglobin Sodium Potassium Chloride Carbon Dioxide BUN Creatinine Glucose POC Glucose 126 H 125 H Lactic Acid Calcium Phosphorus Magnesium Direct Bilirubin AST ALT Alkaline Phosphatase Lactate Dehydrogenase Troponin T C-Reactive Protein Total Protein Albumin Prealbumin Triglycerides Cholesterol LDL Cholesterol Direct HDL Cholesterol Urine pH Urine WBC (Auto) Urine Creatinine Urine Total Protein Fluid Total Protein Vancomycin Trough Rheumatoid Factor Complement C4 Miscellaneous Test Crossmatch 01/15/17 01/15/17 01/15/17 12:45 17:31 23:39 WBC RBC Hgb Hct MCV MCH MCHC RDW Plt Count Lymph % (Auto) [place] % (Auto) Lymph # [place] # Baso # Seg Neutrophils % Seg Neuts % (Manual) Lymphocytes % (Manual) Monocytes % (Manual) Eosinophils % (Manual) Basophils % (Manual) Nucleated RBC % Seg Neutrophils # Seg Neutrophils # Man Lymphocytes # (Manual) Monocytes # (Manual) Eosinophils # (Manual) Basophils # (Manual) PT INR Fibrinogen dRVVT Confirm Interp Factor V Activity POC ABG pH POC ABG pCO2 POC ABG pO2 ABG pO2 ABG HCO3 ABG Base Excess ABG Hemoglobin Oxyhemoglobin Sodium 136 L Potassium Chloride Carbon Dioxide BUN 87 H Creatinine 1.7 H Glucose 108 H POC Glucose 129 H 112 H Lactic Acid Calcium Phosphorus Magnesium Direct Bilirubin AST ALT Alkaline Phosphatase Lactate Dehydrogenase Troponin T C-Reactive Protein Total Protein Albumin Prealbumin Triglycerides Cholesterol LDL Cholesterol Direct HDL Cholesterol Urine pH Urine WBC (Auto) Urine Creatinine Urine Total Protein Fluid Total Protein Vancomycin Trough Rheumatoid Factor Complement C4 Miscellaneous Test Crossmatch 01/16/17 01/16/17 01/16/17 05:23 11:42 12:32 WBC RBC Hgb Hct MCV MCH MCHC RDW Plt Count Lymph % (Auto) [place] % (Auto) Lymph # [place] # Baso # Seg Neutrophils % Seg Neuts % (Manual) Lymphocytes % (Manual) Monocytes % (Manual) Eosinophils % (Manual) Basophils % (Manual) Nucleated RBC % Seg Neutrophils # Seg Neutrophils # Man Lymphocytes # (Manual) Monocytes # (Manual) Eosinophils # (Manual) Basophils # (Manual) PT INR Fibrinogen dRVVT Confirm Interp Factor V Activity POC ABG pH 7.499 H POC ABG pCO2 30.9 L POC ABG pO2 51 L ABG pO2 ABG HCO3 ABG Base Excess ABG Hemoglobin Oxyhemoglobin Sodium Potassium Chloride Carbon Dioxide BUN Creatinine Glucose POC Glucose 118 H 133 H Lactic Acid Calcium Phosphorus Magnesium Direct Bilirubin AST ALT Alkaline Phosphatase Lactate Dehydrogenase Troponin T C-Reactive Protein Total Protein Albumin Prealbumin Triglycerides Cholesterol LDL Cholesterol Direct HDL Cholesterol Urine pH Urine WBC (Auto) Urine Creatinine Urine Total Protein Fluid Total Protein Vancomycin Trough Rheumatoid Factor Complement C4 Miscellaneous Test Crossmatch 01/16/17 01/16/17 01/16/17 17:52 23:57 Unknown WBC RBC Hgb Hct MCV MCH MCHC RDW Plt Count Lymph % (Auto) [place] % (Auto) Lymph # [place] # Baso # Seg Neutrophils % Seg Neuts % (Manual) Lymphocytes % (Manual) Monocytes % (Manual) Eosinophils % (Manual) Basophils % (Manual) Nucleated RBC % Seg Neutrophils # Seg Neutrophils # Man Lymphocytes # (Manual) Monocytes # (Manual) Eosinophils # (Manual) Basophils # (Manual) PT INR Fibrinogen dRVVT Confirm Interp Factor V Activity POC ABG pH POC ABG pCO2 POC ABG pO2 ABG pO2 ABG HCO3 ABG Base Excess ABG Hemoglobin Oxyhemoglobin Sodium 135 L Potassium Chloride Carbon Dioxide BUN 101 H Creatinine 1.8 H Glucose 117 H POC Glucose 130 H 143 H Lactic Acid Calcium Phosphorus 5.80 H Magnesium Direct Bilirubin AST ALT Alkaline Phosphatase Lactate Dehydrogenase Troponin T C-Reactive Protein Total Protein Albumin Prealbumin Triglycerides Cholesterol LDL Cholesterol Direct HDL Cholesterol Urine pH Urine WBC (Auto) Urine Creatinine Urine Total Protein Fluid Total Protein Vancomycin Trough Rheumatoid Factor Complement C4 Miscellaneous Test Crossmatch 01/17/17 01/17/17 01/17/17 05:30 05:46 11:49 WBC RBC Hgb Hct MCV MCH MCHC RDW Plt Count Lymph % (Auto) [place] % (Auto) Lymph # [place] # Baso # Seg Neutrophils % Seg Neuts % (Manual) Lymphocytes % (Manual) Monocytes % (Manual) Eosinophils % (Manual) Basophils % (Manual) Nucleated RBC % Seg Neutrophils # Seg Neutrophils # Man Lymphocytes # (Manual) Monocytes # (Manual) Eosinophils # (Manual) Basophils # (Manual) PT INR Fibrinogen dRVVT Confirm Interp Factor V Activity POC ABG pH POC ABG pCO2 POC ABG pO2 ABG pO2 ABG HCO3 ABG Base Excess ABG Hemoglobin Oxyhemoglobin Sodium 134 L Potassium Chloride 95.8 L Carbon Dioxide BUN 66 H Creatinine 1.3 H Glucose 138 H POC Glucose 147 H 124 H Lactic Acid Calcium Phosphorus Magnesium Direct Bilirubin AST ALT Alkaline Phosphatase 254 H Lactate Dehydrogenase Troponin T C-Reactive Protein Total Protein Albumin 1.3 L Prealbumin Triglycerides Cholesterol LDL Cholesterol Direct HDL Cholesterol Urine pH Urine WBC (Auto) Urine Creatinine Urine Total Protein Fluid Total Protein Vancomycin Trough Rheumatoid Factor Complement C4 Miscellaneous Test Crossmatch 01/17/17 01/17/17 01/18/17 17:30 23:41 05:15 WBC RBC Hgb Hct MCV MCH MCHC RDW Plt Count Lymph % (Auto) [place] % (Auto) Lymph # [place] # Baso # Seg Neutrophils % Seg Neuts % (Manual) Lymphocytes % (Manual) Monocytes % (Manual) Eosinophils % (Manual) Basophils % (Manual) Nucleated RBC % Seg Neutrophils # Seg Neutrophils # Man Lymphocytes # (Manual) Monocytes # (Manual) Eosinophils # (Manual) Basophils # (Manual) PT INR Fibrinogen dRVVT Confirm Interp Factor V Activity POC ABG pH POC ABG pCO2 POC ABG pO2 ABG pO2 ABG HCO3 ABG Base Excess ABG Hemoglobin Oxyhemoglobin Sodium Potassium Chloride Carbon Dioxide BUN 89 H Creatinine 1.7 H Glucose 118 H POC Glucose 137 H 119 H Lactic Acid Calcium Phosphorus Magnesium Direct Bilirubin AST ALT Alkaline Phosphatase Lactate Dehydrogenase Troponin T C-Reactive Protein Total Protein Albumin Prealbumin Triglycerides Cholesterol LDL Cholesterol Direct HDL Cholesterol Urine pH Urine WBC (Auto) Urine Creatinine Urine Total Protein Fluid Total Protein Vancomycin Trough Rheumatoid Factor Complement C4 Miscellaneous Test Crossmatch 01/18/17 01/18/17 01/18/17 05:19 12:16 18:11 WBC RBC Hgb Hct MCV MCH MCHC RDW Plt Count Lymph % (Auto) [place] % (Auto) Lymph # [place] # Baso # Seg Neutrophils % Seg Neuts % (Manual) Lymphocytes % (Manual) Monocytes % (Manual) Eosinophils % (Manual) Basophils % (Manual) Nucleated RBC % Seg Neutrophils # Seg Neutrophils # Man Lymphocytes # (Manual) Monocytes # (Manual) Eosinophils # (Manual) Basophils # (Manual) PT INR Fibrinogen dRVVT Confirm Interp Factor V Activity POC ABG pH POC ABG pCO2 POC ABG pO2 ABG pO2 ABG HCO3 ABG Base Excess ABG Hemoglobin Oxyhemoglobin Sodium Potassium Chloride Carbon Dioxide BUN Creatinine Glucose POC Glucose 134 H 188 H 113 H Lactic Acid Calcium Phosphorus Magnesium Direct Bilirubin AST ALT Alkaline Phosphatase Lactate Dehydrogenase Troponin T C-Reactive Protein Total Protein Albumin Prealbumin Triglycerides Cholesterol LDL Cholesterol Direct HDL Cholesterol Urine pH Urine WBC (Auto) Urine Creatinine Urine Total Protein Fluid Total Protein Vancomycin Trough Rheumatoid Factor Complement C4 Miscellaneous Test Crossmatch 01/19/17 01/19/17 01/19/17 00:00 05:30 05:36 WBC RBC Hgb Hct MCV MCH MCHC RDW Plt Count Lymph % (Auto) [place] % (Auto) Lymph # [place] # Baso # Seg Neutrophils % Seg Neuts % (Manual) Lymphocytes % (Manual) Monocytes % (Manual) Eosinophils % (Manual) Basophils % (Manual) Nucleated RBC % Seg Neutrophils # Seg Neutrophils # Man Lymphocytes # (Manual) Monocytes # (Manual) Eosinophils # (Manual) Basophils # (Manual) PT INR Fibrinogen dRVVT Confirm Interp Factor V Activity POC ABG pH POC ABG pCO2 POC ABG pO2 ABG pO2 ABG HCO3 ABG Base Excess ABG Hemoglobin Oxyhemoglobin Sodium Potassium Chloride Carbon Dioxide BUN 70 H Creatinine 1.5 H Glucose 121 H POC Glucose 137 H 155 H Lactic Acid Calcium Phosphorus 2.10 L D Magnesium Direct Bilirubin AST ALT Alkaline Phosphatase Lactate Dehydrogenase Troponin T C-Reactive Protein Total Protein Albumin Prealbumin Triglycerides Cholesterol LDL Cholesterol Direct HDL Cholesterol Urine pH Urine WBC (Auto) Urine Creatinine Urine Total Protein Fluid Total Protein Vancomycin Trough Rheumatoid Factor Complement C4 Miscellaneous Test Crossmatch 01/19/17 01/19/17 01/19/17 11:59 15:32 17:57 WBC RBC Hgb Hct MCV MCH MCHC RDW Plt Count Lymph % (Auto) [place] % (Auto) Lymph # [place] # Baso # Seg Neutrophils % Seg Neuts % (Manual) Lymphocytes % (Manual) Monocytes % (Manual) Eosinophils % (Manual) Basophils % (Manual) Nucleated RBC % Seg Neutrophils # Seg Neutrophils # Man Lymphocytes # (Manual) Monocytes # (Manual) Eosinophils # (Manual) Basophils # (Manual) PT INR Fibrinogen dRVVT Confirm Interp Factor V Activity POC ABG pH POC ABG pCO2 33.1 L POC ABG pO2 76 L ABG pO2 ABG HCO3 ABG Base Excess ABG Hemoglobin Oxyhemoglobin Sodium Potassium Chloride Carbon Dioxide BUN Creatinine Glucose POC Glucose 156 H 129 H Lactic Acid Calcium Phosphorus Magnesium Direct Bilirubin AST ALT Alkaline Phosphatase Lactate Dehydrogenase Troponin T C-Reactive Protein Total Protein Albumin Prealbumin Triglycerides Cholesterol LDL Cholesterol Direct HDL Cholesterol Urine pH Urine WBC (Auto) Urine Creatinine Urine Total Protein Fluid Total Protein Vancomycin Trough Rheumatoid Factor Complement C4 Miscellaneous Test Crossmatch 01/19/17 01/20/17 01/20/17 23:49 04:00 05:21 WBC RBC Hgb Hct MCV MCH MCHC RDW Plt Count Lymph % (Auto) [place] % (Auto) Lymph # [place] # Baso # Seg Neutrophils % Seg Neuts % (Manual) Lymphocytes % (Manual) Monocytes % (Manual) Eosinophils % (Manual) Basophils % (Manual) Nucleated RBC % Seg Neutrophils # Seg Neutrophils # Man Lymphocytes # (Manual) Monocytes # (Manual) Eosinophils # (Manual) Basophils # (Manual) PT INR Fibrinogen dRVVT Confirm Interp Factor V Activity POC ABG pH POC ABG pCO2 POC ABG pO2 ABG pO2 ABG HCO3 ABG Base Excess ABG Hemoglobin Oxyhemoglobin Sodium Potassium Chloride Carbon Dioxide BUN 96 H Creatinine 1.9 H Glucose 106 H POC Glucose 125 H 130 H Lactic Acid Calcium Phosphorus 2.40 L Magnesium Direct Bilirubin AST ALT Alkaline Phosphatase Lactate Dehydrogenase Troponin T C-Reactive Protein Total Protein Albumin Prealbumin Triglycerides Cholesterol LDL Cholesterol Direct HDL Cholesterol Urine pH Urine WBC (Auto) Urine Creatinine Urine Total Protein Fluid Total Protein Vancomycin Trough Rheumatoid Factor Complement C4 Miscellaneous Test Crossmatch 01/20/17 01/20/17 01/20/17 11:58 12:17 17:26 WBC RBC Hgb Hct MCV MCH MCHC RDW Plt Count Lymph % (Auto) [place] % (Auto) Lymph # [place] # Baso # Seg Neutrophils % Seg Neuts % (Manual) Lymphocytes % (Manual) Monocytes % (Manual) Eosinophils % (Manual) Basophils % (Manual) Nucleated RBC % Seg Neutrophils # Seg Neutrophils # Man Lymphocytes # (Manual) Monocytes # (Manual) Eosinophils # (Manual) Basophils # (Manual) PT INR Fibrinogen dRVVT Confirm Interp Factor V Activity POC ABG pH POC ABG pCO2 POC ABG pO2 70 L ABG pO2 ABG HCO3 ABG Base Excess ABG Hemoglobin Oxyhemoglobin Sodium Potassium Chloride Carbon Dioxide BUN Creatinine Glucose POC Glucose 118 H 154 H Lactic Acid Calcium Phosphorus Magnesium Direct Bilirubin AST ALT Alkaline Phosphatase Lactate Dehydrogenase Troponin T C-Reactive Protein Total Protein Albumin Prealbumin Triglycerides Cholesterol LDL Cholesterol Direct HDL Cholesterol Urine pH Urine WBC (Auto) Urine Creatinine Urine Total Protein Fluid Total Protein Vancomycin Trough Rheumatoid Factor Complement C4 Miscellaneous Test Crossmatch 01/21/17 01/21/17 01/21/17 04:00 04:56 11:46 WBC RBC Hgb Hct MCV MCH MCHC RDW Plt Count Lymph % (Auto) [place] % (Auto) Lymph # [place] # Baso # Seg Neutrophils % Seg Neuts % (Manual) Lymphocytes % (Manual) Monocytes % (Manual) Eosinophils % (Manual) Basophils % (Manual) Nucleated RBC % Seg Neutrophils # Seg Neutrophils # Man Lymphocytes # (Manual) Monocytes # (Manual) Eosinophils # (Manual) Basophils # (Manual) PT INR Fibrinogen dRVVT Confirm Interp Factor V Activity POC ABG pH POC ABG pCO2 POC ABG pO2 ABG pO2 ABG HCO3 ABG Base Excess ABG Hemoglobin Oxyhemoglobin Sodium Potassium 3.5 L Chloride 97.4 L Carbon Dioxide BUN 66 H Creatinine 1.4 H Glucose POC Glucose 116 H 106 H Lactic Acid Calcium Phosphorus 2.10 L Magnesium Direct Bilirubin AST ALT Alkaline Phosphatase Lactate Dehydrogenase Troponin T C-Reactive Protein Total Protein Albumin Prealbumin Triglycerides Cholesterol LDL Cholesterol Direct HDL Cholesterol Urine pH Urine WBC (Auto) Urine Creatinine Urine Total Protein Fluid Total Protein Vancomycin Trough Rheumatoid Factor Complement C4 Miscellaneous Test Crossmatch Allied health notes reviewed: RT (not tolerating weaning. Has been on hold as she has been vomiting)
--- NOTE | 2017-01-21 18:13 | Progress Note ---
Assessment and Plan Assessment and plan: Patient is 46-year-old woman with a history of hypertension, diabetes, asthma, hyperlipidemia, chronic kidney disease and anxiety , who was brought in by family because, she couldn't get her words out, her face was also twisted, she was admitted for acute CVA and accelerated hypertension, she had a hx of poor adherence with her medications, and uncontrolled htn. Patient's SBP on admission was noted be greater than 260. TPA was started but this was discontinued after 5 minutes because her blood pressure became uncontrolled. The TPA was not initiated again because the patient was outside the TPA window. Ethics consult placed Spoke with daughter and brother, Monday01/20/17, informed about persistent vegetative state. Patient continues to have multiple recurrent fever, hypotension despite fluid overload, multiple recurrent electrolyte abnormalities , on TPN and cannot advance to Tube feeds due to overall clinical condition including bowel condition going on over 3 months. Family reports they were told by surgeon that patient will get better, I truly will like to believe the optimism but despite our best efforts, patients clinical condition at best is worse rather than improving. This has been conveyed to the family. They hope to come to the hospital for a family meeting. We will continue all aggressive treatment methods. Will inform surgery about families visit once a time has been selected. Risk Management updated. Patient now on recurrent anemia requiring 2 units packed red blood cell Severe Leukocytosis. contiune meropenem and ID. Status post cardiac arrest , 11/21/16 on Mechanical ventilation >96 hrs - Received CPR and was resuscitated. - Patient is on amiodarone. Fever - resolved - Patient was initially treated with Abx - s/p R thoracentesis on 11/14, 240cc of serous fluid removed, cx of fluid was negative - Stool negative for C. difficile Severe Sepsis with septic shock - Patient has episode of fever and leukocytosis -Recurrent Leukocytosis, with Meropenem restarted, due to continued sacral decubitus. Surgical wound infection/gram-negative sepsis/candidemia/peritonitis - On TPN JUANITA, ESRD - discussed with Dr Wadsworth - on HD - Cr 1.9 today Acute CVA with infarct - Neurology input appreciated - CT shows continued evolution of left MCA infarct with slight mass effect and edema, and there is no hemorrhage - PRINCE showed hyperdynamic with ef of 75%, neither clot nor septal defect seen - MRA Brain shows near complete occlusion of M2 and M3 of the left MCA - Repeat CT scan done on 09/11, shows stable findings - carotid doppler negative - Echo shows preserved systolic function but does show some left ventricular diastolic dysfunction - continue asa and statin Persistent vegetative state - This patient's needs placement at SNF - She was denied for LTACH Acute hypoxic respiratory failure requiring MV >96hrs - Status post tracheostomy, was on T piece Nosocomial acquired aspiration pneumonia/sepsis/UTI - Finished a course of antibiotics Asthma/COPD exacerbation - ON trach, mechanical ventilation >96 hrs Status Post CVA Bilateral pleural effusion, s/p right thoracentesis A. fib with RVR Diabetes type 2. Continue sliding-scale regular insulin and Accu-Cheks. Hyperlipidemia. Continue statin Nutrition - TPN Anemia requiring multiple transfusions/acute blood loss - currently stable - Check AM labs - Will transfuse if it is below 7 Sacral decubitus ulcer - Status post debridement Disposition. Very poor prognosis. Ethics consult has been placed, will await there input. Cannot reach family, multiple calls placed. Nursing staff on the look out for family and will notify physician. The high probability of a clinically significant, sudden or life threatening deterioration of the [neurologic, CV] system(s) required my full and direct attention, intervention and personal management. The aggregate critical care time was [35] minutes. This time is in addition to time spent performing reported procedures but includes the following: [x] Data Review and interpretation [x] Patient assessment and monitoring of vital signs [x] Documentation [x] Medication orders and management History Interval history: patient seen and examined, remains unresponsive on the ventilator. no new report per nursing staff Hospitalist Physical - Physical exam Narrative exam: GEN: Ill appearing, trach, staring into space, not tracking either NECK: SUPPLE, trach in place, ngt in place CVS: regular currently NORMAL S1S2 LUNGS/CHEST: NORMAL CHEST EXPANSION B, GOOD AIR ENTRY B ABD: SOFT, no grimise on abdominal palpation, ostomy bags in different locations AND STILL DRAINING, GBS, NO REBOUND OR GUARDING, peg tube in place EXT/SKIN: NO SIGNIFICANT EDEMA BUT WITH UNSTAGEABLE SACRAL DECUB, wound vac inplace MSK: +spontaneous non purposeful movement NEURO: on a ventilator and unresponsive despite being off sedation PSY: Comatose, - Constitutional Vitals: Temp Pulse Resp BP Pulse Ox 99.6 F 110 H 22 122/65 99 01/21/17 16:00 01/21/17 17:15 01/21/17 17:15 01/21/17 17:15 01/21/17 17:15 General appearance: Present: no acute distress, well-nourished, obese Results - Labs CBC & Chem 7: 01/15/17 12:45 01/21/17 04:00 Labs: Laboratory Last Values WBC 16.2 K/mm3 (4.5-11.0) H 01/15/17 12:45 RBC 3.00 M/mm3 (3.65-5.03) L 01/15/17 12:45 Hgb 8.1 gm/dl (10.1-14.3) L 01/15/17 12:45 Hct 25.4 % (30.3-42.9) L 01/15/17 12:45 MCV 85 fl (79-97) 01/15/17 12:45 MCH 27 pg (28-32) L 01/15/17 12:45 MCHC 32 % (30-34) 01/15/17 12:45 RDW 17.6 % (13.2-15.2) H 01/15/17 12:45 Plt Count 287 K/mm3 (140-440) 01/15/17 12:45 Lymph % (Auto) 11.7 % (13.4-35.0) L 01/15/17 12:45 [place] % (Auto) 7.8 % (0.0-7.3) H 01/15/17 12:45 Eos % (Auto) 0.1 % (0.0-4.3) 01/15/17 12:45 Baso % (Auto) 0.3 % (0.0-1.8) 01/15/17 12:45 Lymph # 1.9 K/mm3 (1.2-5.4) 01/15/17 12:45 [place] # 1.3 K/mm3 (0.0-0.8) H 01/15/17 12:45 Eos # 0.0 K/mm3 (0.0-0.4) 01/15/17 12:45 Baso # 0.0 K/mm3 (0.0-0.1) 01/15/17 12:45 Add Manual Diff Complete 12/19/16 05:02 Total Counted 100 12/19/16 05:02 Seg Neutrophils % 80.1 % (40.0-70.0) H 01/15/17 12:45 Seg Neuts % (Manual) 64.0 % (40.0-70.0) 12/19/16 05:02 Band Neutrophils % 15.0 % 12/19/16 05:02 Lymphocytes % (Manual) 13.0 % (13.4-35.0) L 12/19/16 05:02 Reactive Lymphs % (Man) 0 % 12/19/16 05:02 Monocytes % (Manual) 7.0 % (0.0-7.3) 12/19/16 05:02 Eosinophils % (Manual) 0 % (0.0-4.3) 12/19/16 05:02 Basophils % (Manual) 1.0 % (0.0-1.8) 12/19/16 05:02 Metamyelocytes % 0 % 12/19/16 05:02 Myelocytes % 0 % 12/19/16 05:02 Promyelocytes % 0 % 12/19/16 05:02 Blast Cells % 0 % 12/19/16 05:02 Nucleated RBC % 1.0 % (0.0-0.9) H 12/19/16 05:02 Seg Neutrophils # 13.0 K/mm3 (1.8-7.7) H 01/15/17 12:45 Seg Neutrophils # Man 12.9 K/mm3 (1.8-7.7) H 12/19/16 05:02 Band Neutrophils # 3.0 K/mm3 12/19/16 05:02 Lymphocytes # (Manual) 2.6 K/mm3 (1.2-5.4) 12/19/16 05:02 Abs React Lymphs (Man) 0.0 K/mm3 12/19/16 05:02 Monocytes # (Manual) 1.4 K/mm3 (0.0-0.8) H 12/19/16 05:02 Eosinophils # (Manual) 0.0 K/mm3 (0.0-0.4) 12/19/16 05:02 Basophils # (Manual) 0.2 K/mm3 (0.0-0.1) H 12/19/16 05:02 Metamyelocytes # 0.0 K/mm3 12/19/16 05:02 Myelocytes # 0.0 K/mm3 12/19/16 05:02 Promyelocytes # 0.0 K/mm3 12/19/16 05:02 Blast Cells # 0.0 K/mm3 12/19/16 05:02 Pathologist Review 09/13/16 04:00 WBC Morphology Not Reportable 12/19/16 05:02 Hypersegmented Neuts Not Reportable 12/19/16 05:02 Hyposegmented Neuts Not Reportable 12/19/16 05:02 Hypogranular Neuts Not Reportable 12/19/16 05:02 Smudge Cells Not Reportable 12/19/16 05:02 Toxic Granulation Not Reportable 12/19/16 05:02 Toxic Vacuolation Not Reportable 12/19/16 05:02 Dohle Bodies Not Reportable 12/19/16 05:02 Pelger-Huet Anomaly Not Reportable 12/19/16 05:02 Jasmina Rods Not Reportable 12/19/16 05:02 Platelet Estimate Consistent w auto 12/19/16 05:02 Clumped Platelets Not Reportable 12/19/16 05:02 Plt Clumps, EDTA Not Reportable 12/19/16 05:02 Large Platelets Not Reportable 12/19/16 05:02 Giant Platelets Not Reportable 12/19/16 05:02 Platelet Satelliting Not Reportable 12/19/16 05:02 Plt Morphology Comment Not Reportable 12/19/16 05:02 RBC Morphology Not Reportable 12/19/16 05:02 Dimorphic RBCs Not Reportable 12/19/16 05:02 Polychromasia Not Reportable 12/19/16 05:02 Hypochromasia Not Reportable 12/19/16 05:02 Poikilocytosis Not Reportable 12/19/16 05:02 Anisocytosis Not Reportable 12/19/16 05:02 Microcytosis Not Reportable 12/19/16 05:02 Macrocytosis Not Reportable 12/19/16 05:02 Spherocytes Not Reportable 12/19/16 05:02 Pappenheimer Bodies Not Reportable 12/19/16 05:02 Sickle Cells Not Reportable 12/19/16 05:02 Target Cells Few 12/19/16 05:02 Tear Drop Cells Not Reportable 12/19/16 05:02 Ovalocytes Not Reportable 12/19/16 05:02 Stomatocytes Rare 12/03/16 04:00 Helmet Cells Not Reportable 12/19/16 05:02 Monet-[place]uc[place] Bodies Not Reportable 12/19/16 05:02 [place] Rings Not Reportable 12/19/16 05:02 [place] Cells Not Reportable 12/19/16 05:02 Bite Cells Not Reportable 12/19/16 05:02 Crenated Cell Not Reportable 12/19/16 05:02 Elliptocytes Not Reportable 12/19/16 05:02 Acanthocytes (Spur) Not Reportable 12/19/16 05:02 Rouleaux Not Reportable 12/19/16 05:02 Hemoglobin C Crystals Not Reportable 12/19/16 05:02 Schistocytes Not Reportable 12/19/16 05:02 Malaria parasites Not Reportable 12/19/16 05:02 ESR > 140.0 mm/Hr (0-20) 09/08/16 11:48 Jun Bodies Not Reportable 12/19/16 05:02 Hem Pathologist Commnt No 12/19/16 05:02 PT 15.4 Sec. (12.2-14.9) H 01/13/17 15:50 INR 1.16 (0.87-1.13) H 01/13/17 15:50 APTT 33.0 Sec. (24.2-36.6) 10/09/16 03:45 Thrombin Time 16.8 Sec. (15.1-19.6) 09/03/16 00:10 Fibrinogen 750 mg/dl (211-480) H 09/08/16 11:48 Lupus Anticoagulant see below 09/12/16 09:59 LA PTT Baseline See scanned report 09/12/16 09:59 dRVVT Confirm Interp Positive (Negative) H 09/12/16 09:59 dRVVT Screen 50:50 See scanned report 09/12/16 09:59 dRVVT Mix Interpret See scanned report 09/12/16 09:59 Protein C Antigen 122 % (70-140) 09/08/16 15:35 Free Protein S 97 % normal (50-147) 09/08/16 15:35 Total Protein S 109 % (70-140) 09/08/16 15:35 Antithrombin III Ag 100 % (80-120) 09/08/16 15:35 Heparin Anti-Xa, Unfract Negative (Negative) 09/29/16 13:35 Factor V Activity 182 % (65-150) H 09/08/16 15:35 POC ABG pH 7.436 (7.35-7.45) 01/20/17 12: ABG pH 7.450 pH Units (7.350-7.450) 12/05/16 Unknown POC ABG pCO2 35.3 (35-45) 01/20/17 12: ABG pCO2 29.6 mm Hg 12/05/16 Unknown POC ABG pO2 70 (80-105) L 01/20/17 12: ABG pO2 75.2 mm Hg (80.0-90.0) L 12/05/16 Unknown POC ABG HCO3 23.8 01/20/17 12: ABG HCO3 20.1 mmol/L (20.0-26.0) 12/05/16 Unknown POC ABG Total CO2 25 01/20/17 12: POC ABG O2 Sat 94 01/20/17 12: ABG O2 Saturation 96.8 % (95.0-99.0) 12/05/16 Unknown ABG O2 Content 9.9 (0.0-44) 12/05/16 Unknown POC ABG Base Excess 0 01/20/17 12: ABG Base Excess -3.4 mmol/L (-2.0-3.0) L 12/05/16 Unknown ABG Hemoglobin 7.4 gm/dl (12.0-16.0) L 12/05/16 Unknown ABG Carboxyhemoglobin 1.8 % (0.0-5.0) 12/05/16 Unknown ABG Methemoglobin 0.6 % (0.0-1.5) 12/05/16 Unknown Oxyhemoglobin 94.5 % (95.0-99.0) L 12/05/16 Unknown FiO2 30 % 01/20/17 12: Sodium 138 mmol/L (137-145) 01/21/17 04:00 Potassium 3.5 mmol/L (3.6-5.0) L 01/21/17 04:00 Chloride 97.4 mmol/L (98-107) L 01/21/17 04:00 Carbon Dioxide 25 mmol/L (22-30) 01/21/17 04:00 Anion Gap 19 mmol/L 01/21/17 04:00 BUN 66 mg/dL (7-17) H 01/21/17 04:00 Creatinine 1.4 mg/dL (0.7-1.2) H 01/21/17 04:00 Estimated GFR 49 ml/min 01/21/17 04:00 BUN/Creatinine Ratio 47 % 01/21/17 04:00 Glucose 96 mg/dL (65-100) 01/21/17 04:00 POC Glucose 106 (70-105) H 01/21/17 17:25 Osmolality 351 Mosm/kg 09/16/16 11:47 Lactic Acid 2.30 mmol/L (0.7-2.0) H* 01/09/17 08:22 Calcium 8.8 mg/dL (8.4-10.2) 01/21/17 04:00 Phosphorus 2.10 mg/dL (2.5-4.5) L 01/21/17 04:00 Magnesium 2.00 mg/dL (1.7-2.3) 01/19/17 05:30 Total Bilirubin 0.40 mg/dL (0.1-1.2) 01/17/17 05:30 Direct Bilirubin 0.3 mg/dL (0-0.2) H 10/10/16 05:00 Indirect Bilirubin 0.1 mg/dL 10/10/16 05:00 AST 26 units/L (5-40) 01/17/17 05:30 ALT 35 units/L (7-56) 01/17/17 05:30 Alkaline Phosphatase 254 units/L (35-129) H 01/17/17 05:30 Ammonia 27.0 umol/L (25-60) 09/07/16 08:37 Lactate Dehydrogenase 170 units/L (91-180) 01/13/17 15:50 Total Creatine Kinase 121 units/L (30-135) 09/29/16 20:12 CK-MB (CK-2) < 1.0 ng/mL (0.0-4.0) 09/29/16 20:12 CK-MB (CK-2) Rel Index 0.8 (0-4) 09/29/16 20:12 Troponin T 0.204 ng/mL (0.00-0.029) H* 09/29/16 20:12 C-Reactive Protein 24.70 mg/dL (0.00-1.30) H 01/09/17 13:30 Total Protein 6.6 g/dL (6.3-8.2) 01/17/17 05:30 Albumin 1.3 g/dL (3.9-5) L 01/17/17 05:30 Albumin/Globulin Ratio 0.2 % 01/17/17 05:30 Prealbumin 0.110 g/L (0.200-0.400) L 12/29/16 05:15 Triglycerides 137 mg/dL (2-149) 09/29/16 20:12 Cholesterol 31 mg/dL (50-199) L 09/29/16 20:12 LDL Cholesterol Direct 4 mg/dL (50-130) L 09/29/16 20:12 HDL Cholesterol 3 mg/dL (40-59) L 09/29/16 20:12 Cholesterol/HDL Ratio 10.33 % 09/29/16 20:12 Angiotensin Convert Enz See scanned report 09/08/16 11:48 Renin 0.99 ng/mL/h (0.25-5.82) 10/07/16 10:56 Aldosterone <1 ng/dL () 10/07/16 10:56 Aldosterone/Renin Dir see below 10/07/16 10:56 Serotonin Release Assay See scanned report 09/29/16 13:35 TSH 1.010 mlU/mL (0.270-4.200) 09/07/16 08:37 HCG, Qual Negative (Negative) 09/03/16 00:10 Urine Color Yellow (Yellow) 11/05/16 13:09 Urine Turbidity Clear (Clear) 11/05/16 13:09 Urine pH 9.0 (5.0-7.0) H 11/05/16 13:09 Ur Specific [place] 1.011 (1.003-1.030) 11/05/16 13:09 Urine Protein 100 mg/dl mg/dL (Negative) 11/05/16 13:09 Urine Glucose (UA) Neg mg/dL (Negative) 11/05/16 13:09 Urine Ketones Neg mg/dL (Negative) 11/05/16 13:09 Urine Blood Neg (Negative) 11/05/16 13:09 Urine Nitrite Neg (Negative) 11/05/16 13:09 Urine Bilirubin Neg (Negative) 11/05/16 13:09 Urine Urobilinogen < 2.0 mg/dL (<2.0) 11/05/16 13:09 Ur Leukocyte Esterase Neg (Negative) 11/05/16 13:09 Urine WBC (Auto) 4.0 /HPF (0.0-6.0) 11/05/16 13:09 Urine RBC (Auto) 1.0 /HPF (0.0-6.0) 11/05/16 13:09 U Epithel Cells (Auto) 1.0 /HPF (0-13.0) 10/07/16 18:30 Urine Bacteria (Auto) 4+ /HPF (Negative) 11/05/16 13:09 Urine WBC Clumps 2+ /HPF 09/07/16 02:47 Hyaline Casts 4 /LPF 09/07/16 02:47 Urine Mucus Few /HPF 10/07/16 18:30 Urine Yeast (Budding) 3+ /HPF 10/07/16 18:30 Urine Eosinophils None seen (None Seen) 09/07/16 16:00 Urine Total Volume 950 11/12/16 10:18 Urine Creatinine 19.7 mg/dL (0.1-20.0) 11/12/16 10:18 Height (in) 65.0 inches 11/12/16 10:18 Weight (lb) 181.0 lbs 11/12/16 10:18 Creatinine Clearance 5 11/12/16 10:18 Urine Sodium 36 mEq/L 09/16/16 19:19 Urine Total Protein 16 mg/dL (5-11.8) H 09/16/16 19:19 Fluid Type Pleural 01/13/17 12:10 Fluid Color Yellow 01/13/17 12:10 Fluid Appearance Hazy 01/13/17 12:10 Fluid WBC 182 /mm3 01/13/17 12:10 Fluid RBC 41 /mm3 01/13/17 12:10 Fluid Seg Neutrophils 85.0 % 01/13/17 12:10 Fluid Lymphocytes 8.0 % 01/13/17 12:10 Fluid Reactive Lymphs 0 % 01/13/17 12:10 Fluid Monocytes 6.0 % 01/13/17 12:10 Fluid Eosinophils 1.0 % 01/13/17 12:10 Fluid Basophils 0 % 01/13/17 12:10 Fluid Total Protein 3.0 (15.0-45.0) L 01/13/17 12:10 Fluid LDH 1322 01/13/17 12:10 Fluid Comment Diff performed 01/13/17 12:10 Vancomycin Trough 2.3 ug/mL (5.0-20.0) L 09/21/16 13:00 Random Vancomycin 16.5 ug/mL (0-40.0) 11/28/16 09:45 Urine Opiates Screen Presumptive negative 09/03/16 15:11 Urine Methadone Screen Presumptive positive 09/03/16 15:11 Ur Barbiturates Screen Presumptive positive 09/03/16 15:11 Ur Phencyclidine Scrn Presumptive negative 09/03/16 15:11 Ur Amphetamines Screen Presumptive negative 09/03/16 15:11 U Benzodiazepines Scrn Presumptive negative 09/03/16 15:11 Urine Cocaine Screen Presumptive negative 09/03/16 15:11 U Marijuana (THC) Screen Presumptive positive 09/03/16 15:11 Drugs of Abuse Note Disclamer 09/03/16 15:11 Rheumatoid Factor 24 IU/ml (0-13) H 09/08/16 11:48 SAHIL Screen Negative (Negative) 09/07/16 09:20 Proteinase 3 (PR3) Ab <1.0 AI (<1.0) 09/07/16 09:20 Myeloperoxidase Ab <1.0 AI (<1.0) 09/07/16 09:20 Sjogren's Antibody <1.0 AI (<1.0) 09/08/16 15:35 Scl-70 Scleroderma Ab <1.0 AI (<1.0) 09/08/16 15:35 Centromere B Antibody <1.0 AI (<1.0) 09/08/16 12:02 Heparin-induced Plt Ab Negative (Negative) 09/29/16 13:35 UF Heparin High Dose 11 % Release 09/29/16 13:35 SUDHIR UFH Low Dose 0.1 6 % Release 09/29/16 13:35 SUDHIR UFH Low Dose 0.5 8 % Release 09/29/16 13:35 Cardiolipid IgG Ab <14 GPL (<=14) 09/12/16 09:59 Cardiolipid IgA Ab <11 APL (<=11) 09/12/16 09:59 Cardiolipid IgM Ab <12 MPL (<=12) 09/12/16 09:59 Complement C3 148 mg/dL (90-180) 09/07/16 09:20 Complement C4 58 mg/dL (16-47) H 09/07/16 09:20 RPR Nonreactive (Nonreactive) 09/08/16 11:48 Hepatitis A IgM Ab Non-reactive (NonReactive) 09/24/16 14:40 Hep Bs Antigen Non-reactive (Negative) 09/24/16 14:40 Hep B Core IgM Ab Non-reactive (NonReactive) 09/24/16 14:40 Hepatitis C Antibody Non-reactive (NonReactive) 09/24/16 14:40 HIV 1&2 Antibody Rapid Non react (Non React) 09/08/16 11:48 HIV P24 Antigen Non react (Non React) 09/08/16 11:48 Miscellaneous Test Flexitest 1 H 01/09/17 18:45 Blood Type A POSITIVE 01/08/17 10:37 Antibody Screen Negative 01/08/17 10:37 DELORIS Antibody Screen Negative 11/24/16 11:20 Crossmatch See Detail 01/08/17 10:37
[2017-01-21] MEDS ORDERED: TPN ADULT IV SCH (20:00)
[2017-01-22] MEDS: HumuLIN R SUB-Q SCH ×4 (00:18→17:23)
[2017-01-22] MEDS: LOPRESSOR PO SCH ×4 (00:18→17:25)
[2017-01-22] MEDS: DUONEB *Not for PRN Use IH SCH ×4 (01:09→19:22)
[2017-01-22] MEDS: HEPARIN IV PRN (02:23)
[2017-01-22] MEDS: LASIX IV SCH ×2 (05:57→18:21)
[2017-01-22] MEDS: ALBURX 25% (ALBUMIN) IV SCH ×2 (05:57→17:48)
[2017-01-22] MEDS: REGLAN IV SCH ×3 (05:58→22:55)
[2017-01-22] MEDS: APRESOLINE PO SCH ×3 (05:58→22:57)
[2017-01-22 07:29] LABS: Hematocrit 22.7 % (30.3-42.9); Hemoglobin 7.5 gm/dl (10.1-14.3); Mean Corpuscular HGB Conc 33 % (30-34); Mean Corpuscular Hemoglobin 27 pg (28-32); Mean Corpuscular Volume 82 fl (79-97); Platelet Count 335 K/mm3 (140-440); Red Blood Count 2.75 M/mm3 (3.65-5.03); Red Cell Distribution Width 17.5 % (13.2-15.2)
[2017-01-22 07:50] LABS: BUN/Creatinine Ratio 47; Blood Urea Nitrogen 42 mg/dL (7-17); Calcium 8.5 mg/dL (8.4-10.2); Hemolysis Index 0
[2017-01-22] MEDS: HEPARIN SUB-Q SCH ×2 (10:18→22:56)
[2017-01-22] MEDS: PROTONIX FEEDTUBE SCH (10:18)
[2017-01-22] MEDS: NORVASC PO SCH (10:18)
[2017-01-22] MEDS: ROBINUL PO SCH ×2 (10:18→22:55)
--- NOTE | 2017-01-22 11:56 | Progress Note ---
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 shift * Acute hypoxic respiratory failure * Left renal artery stenosis * Metabolic acidosis - improved * Anemia * Hyponatremia - multifactorial * tachycardia * Pleural effusion Plan: * Patient had additional dialysis yesterday. * Her serum creatinine noted to be much lower. However clinically still volume overloaded. Approximately 400 mL of urine recorded with IV albumin with Lasix * Shall continue hemodialysis on Monday schedule for now . * Continue IV albumin with Lasix as well * Tolerating TPN well at this time. Tube feeding has also been initiated * monitor for renal recovery * Rate control per cardiology * Dose medications for renal function * Avoid potential nephrotoxins Subjective Date of service: 01/22/17 Principal diagnosis: Acute resp failure on MVS; S/P Acute CVA; Acute Encephalopathy; JUANITA Interval history: Patient remains on the ventilator. Currently on 30% FiO2. Unresponsive. Objective - Vital Signs Vital signs: Vital Signs - 12hr 01/22/17 01/22/17 01/22/17 00:00 00:15 00:30 Temperature 98.8 F Pulse Rate 90 91 H 90 Pulse Rate [ Anterior Bilateral Throughout] Respiratory 23 Rate Respiratory Rate [Anterior Bilateral Throughout] Blood Pressure 118/76 112/72 113/72 O2 Sat by Pulse 97 Oximetry O2 Sat by Pulse Oximetry [ Anterior Bilateral Throughout] O2 Sat by Pulse Oximetry [ Assessment] 01/22/17 01/22/17 01/22/17 00:45 01:00 01:15 Temperature Pulse Rate 88 95 H 91 H Pulse Rate [ Anterior Bilateral Throughout] Respiratory 25 H Rate Respiratory Rate [Anterior Bilateral Throughout] Blood Pressure 116/69 112/71 112/72 O2 Sat by Pulse 99 Oximetry O2 Sat by Pulse Oximetry [ Anterior Bilateral Throughout] O2 Sat by Pulse Oximetry [ Assessment] 01/22/17 01/22/17 01/22/17 01:30 01:45 02:00 Temperature 98.8 F Pulse Rate 93 H 92 H 91 H Pulse Rate [ Anterior Bilateral Throughout] Respiratory 24 Rate Respiratory Rate [Anterior Bilateral Throughout] Blood Pressure 115/78 108/74 118/75 O2 Sat by Pulse 94 Oximetry O2 Sat by Pulse 98 Oximetry [ Anterior Bilateral Throughout] O2 Sat by Pulse Oximetry [ Assessment] 01/22/17 01/22/17 01/22/17 03:00 03:05 04:00 Temperature 98.1 F Pulse Rate 92 H 90 101 H Pulse Rate [ Anterior Bilateral Throughout] Respiratory 22 16 Rate Respiratory Rate [Anterior Bilateral Throughout] Blood Pressure 127/80 127/80 125/92 O2 Sat by Pulse 95 95 99 Oximetry O2 Sat by Pulse Oximetry [ Anterior Bilateral Throughout] O2 Sat by Pulse Oximetry [ Assessment] 01/22/17 01/22/17 01/22/17 04:26 05:00 05:58 Temperature Pulse Rate 101 H 94 H 97 H Pulse Rate [ Anterior Bilateral Throughout] Respiratory 22 Rate Respiratory Rate [Anterior Bilateral Throughout] Blood Pressure 138/81 134/85 O2 Sat by Pulse 99 Oximetry O2 Sat by Pulse Oximetry [ Anterior Bilateral Throughout] O2 Sat by Pulse Oximetry [ Assessment] 01/22/17 01/22/17 01/22/17 06:00 07:00 08:00 Temperature 98.3 F Pulse Rate 98 H 87 90 Pulse Rate [ Anterior Bilateral Throughout] Respiratory 22 27 H 27 H Rate Respiratory Rate [Anterior Bilateral Throughout] Blood Pressure 142/88 125/80 142/94 O2 Sat by Pulse 99 97 99 Oximetry O2 Sat by Pulse Oximetry [ Anterior Bilateral Throughout] O2 Sat by Pulse Oximetry [ Assessment] 01/22/17 01/22/17 01/22/17 09:28 09:45 09:49 Temperature Pulse Rate 89 93 H Pulse Rate [ 88 91 H Anterior Bilateral Throughout] Respiratory 34 H Rate Respiratory 26 H 32 H Rate [Anterior Bilateral Throughout] Blood Pressure 131/78 131/78 O2 Sat by Pulse 96 96 Oximetry O2 Sat by Pulse Oximetry [ Anterior Bilateral Throughout] O2 Sat by Pulse 96 Oximetry [ Assessment] 01/22/17 01/22/17 10:18 11:51 Temperature Pulse Rate 97 H 96 H Pulse Rate [ Anterior Bilateral Throughout] Respiratory 29 H Rate Respiratory Rate [Anterior Bilateral Throughout] Blood Pressure 138/85 132/77 O2 Sat by Pulse 97 Oximetry O2 Sat by Pulse Oximetry [ Anterior Bilateral Throughout] O2 Sat by Pulse Oximetry [ Assessment] - General Appearance General appearance: well-developed, well-nourished, appears stated age, intubated EENT: PERRL, mucous membranes moist Neck: no JVD, other (tracheostomy tube in place. Connected to the ventilator) Respiratory: Present: Other (coarse breath sounds bilaterally) Cardiology: regular, normal heart rate Gastrointestinal: normoactive bowel sounds, other (collection bag noted over her old PEG tube site) Integumentary: other (2+ edema) - Lab 01/22/17 07:20 01/22/17 07:20 Most recent lab results ABG pH 7.450 pH Units (7.350-7.450) 12/05/16 Unknown ABG pCO2 29.6 mm Hg 12/05/16 Unknown ABG pO2 75.2 mm Hg (80.0-90.0) L 12/05/16 Unknown ABG HCO3 20.1 mmol/L (20.0-26.0) 12/05/16 Unknown ABG O2 Saturation 96.8 % (95.0-99.0) 12/05/16 Unknown Calcium 8.5 mg/dL (8.4-10.2) 01/22/17 07:20 Phosphorus 1.70 mg/dL (2.5-4.5) L 01/22/17 07:20 Magnesium 1.80 mg/dL (1.7-2.3) 01/22/17 07:20 Urine Creatinine 19.7 mg/dL (0.1-20.0) 11/12/16 10:18 Urine Sodium 36 mEq/L 09/16/16 19:19 Urine Total Protein 16 mg/dL (5-11.8) H 09/16/16 19:19
[2017-01-22] MEDS: MERREM IV SCH (12:13)
[2017-01-22] MEDS: NACL 0.9% IV SCH (12:13)
[2017-01-22] MEDS: DURAGESIC TD SCH (12:13)
[2017-01-22] MEDS: TRANSDERM-SCOP TD SCH (14:18)
--- NOTE | 2017-01-22 18:36 | Progress Note ---
Assessment and Plan Assessment and Plan --Severe Sepsis with septic shock, recurrent. Patient with multiple episodes of sepsis. Initial episode due to presumed aspiration pneumonia and septic episode on 09/23 from candidemia then a third episode from peritonitis from gastric perforation from dislodged PEG +/-UTI. Patient was also noted to have had Candidemia with Blood cultures positive for Silvia albicans 09/23, 09/25 but negative on 09/30. Antibiotic discontinued on 12/05 per ID. patient is s/p R thoracentesis on 11/14, 240cc of serous fluid removed, cx of fluid was negative. Also, Stool negative for C. difficile --Surgical wound infection/gram-negative sepsis/candidemia/peritonitis. Continue wound care to ostomy sites --Acute hypoxic respiratory failure, status post tracheostomy Patient placed back on ventilation. Patient currently with CPAP mode. Patient failed T-piece trials. Tracheostomy tube leak. Pulmonary following --Acute massive CVA with mass effect; continue antiplatelets and statins CT showed continued evolution of left MCA infarct with slight mass effect and edema, and there is no hemorrhage -PRINCE showed hyperdynamic ventricle with ef of 75%, neither clot nor septal defect seen -MRA Brain shows near complete occlusion of M2 and M3 of the left MCA carotid doppler negative -Echo shows preserved systolic function but does show some left ventricular diastolic dysfunction -continue asa and statin --Oliguric acute kidney injury. Etiology secondary to ATN on CKD. Baseline creatinine is approximately 1.7. Today's BUN/Cr is 75/1.6 --Paroxysmal atrial fibrillation with rapid ventricular rate, failed cardioversion Continue current medications, Not a candidate for anticoagulation secondary to anemia, thrombocytopenia and massive CVA --Anemia; probably secondary to GI bleeding Patient received multiple units of PRBC in the past, hemoglobin currently stable -Toxic metabolic encephalopathy; supportive care --Diabetes mellitus type 2, Insulin/SSI --Severe protein caloric malnutrition, cont TPN --s/p Thrombocytopenia. Now resolved --DVT prophylaxis, SCDs, no pharmacological agent given anemia , thrombocytopenia, massive stroke --Full code status, very poor prognosis Subjective Date of service: 01/22/17 Principal diagnosis: Acute resp failure on MVS; S/P Acute CVA; Acute Encephalopathy; JUANITA Interval history: No interval change Objective - Constitutional Vitals: Vital Signs - 12hr 01/22/17 01/22/17 01/22/17 07:00 08:00 09:00 Temperature 98.3 F Pulse Rate 87 90 89 Pulse Rate [ Anterior Bilateral Throughout] Respiratory 27 H 27 H 24 Rate Respiratory Rate [Anterior Bilateral Throughout] Blood Pressure 125/80 142/94 131/78 O2 Sat by Pulse 97 99 92 Oximetry O2 Sat by Pulse Oximetry [ Assessment] 01/22/17 01/22/17 01/22/17 09:28 09:45 09:49 Temperature Pulse Rate 89 93 H Pulse Rate [ 88 91 H Anterior Bilateral Throughout] Respiratory 34 H Rate Respiratory 26 H 32 H Rate [Anterior Bilateral Throughout] Blood Pressure 131/78 131/78 O2 Sat by Pulse 96 96 Oximetry O2 Sat by Pulse 96 Oximetry [ Assessment] 01/22/17 01/22/17 01/22/17 10:00 10:18 11:00 Temperature Pulse Rate 95 H 97 H 98 H Pulse Rate [ Anterior Bilateral Throughout] Respiratory 30 H 22 Rate Respiratory Rate [Anterior Bilateral Throughout] Blood Pressure 138/85 138/85 132/77 O2 Sat by Pulse 98 98 Oximetry O2 Sat by Pulse Oximetry [ Assessment] 01/22/17 01/22/17 01/22/17 11:51 12:00 12:13 Temperature 99.1 F Pulse Rate 96 H 95 H 96 H Pulse Rate [ Anterior Bilateral Throughout] Respiratory 29 H 32 H Rate Respiratory Rate [Anterior Bilateral Throughout] Blood Pressure 132/77 133/82 133/82 O2 Sat by Pulse 97 97 Oximetry O2 Sat by Pulse Oximetry [ Assessment] 01/22/17 01/22/17 01/22/17 13:00 14:00 14:08 Temperature Pulse Rate 87 89 Pulse Rate [ 88 Anterior Bilateral Throughout] Respiratory 29 H 32 H Rate Respiratory 28 H Rate [Anterior Bilateral Throughout] Blood Pressure 125/83 125/83 O2 Sat by Pulse 98 98 Oximetry O2 Sat by Pulse Oximetry [ Assessment] 01/22/17 01/22/17 01/22/17 14:18 14:56 15:00 Temperature Pulse Rate 92 H 96 H 94 H Pulse Rate [ 83 Anterior Bilateral Throughout] Respiratory 24 36 H Rate Respiratory 24 Rate [Anterior Bilateral Throughout] Blood Pressure 138/86 138/86 132/85 O2 Sat by Pulse 96 93 Oximetry O2 Sat by Pulse Oximetry [ Assessment] 01/22/17 01/22/17 01/22/17 16:00 17:00 17:25 Temperature 98.9 F Pulse Rate 94 H 96 H Pulse Rate [ Anterior Bilateral Throughout] Respiratory 37 H 37 H Rate Respiratory Rate [Anterior Bilateral Throughout] Blood Pressure 103/59 108/60 108/60 O2 Sat by Pulse 93 93 Oximetry O2 Sat by Pulse Oximetry [ Assessment] 01/22/17 18:00 Temperature Pulse Rate 102 H Pulse Rate [ Anterior Bilateral Throughout] Respiratory 27 H Rate Respiratory Rate [Anterior Bilateral Throughout] Blood Pressure 128/85 O2 Sat by Pulse 97 Oximetry O2 Sat by Pulse Oximetry [ Assessment] General appearance: Present: no acute distress, well-nourished - EENT Eyes: PERRL, EOM intact ENT: hearing intact, clear oral mucosa Ears: bilateral: normal - Neck Neck: supple, normal ROM, other - Respiratory Respiratory effort: normal Respiratory: bilateral: CTA - Breasts Breasts: normal - Cardiovascular Rhythm: regular Heart Sounds: Present: S1 & S2. Absent: gallop, rub Extremities: pulses intact, No edema, normal color, Full ROM - Gastrointestinal General gastrointestinal: Present: soft, non-tender, non-distended, normal bowel sounds - Genitourinary Female genitourinary: normal - Integumentary Integumentary: clear, warm, dry - Musculoskeletal Musculoskeletal: 1, strength equal bilaterally - Neurologic Neurologic: moves all extremities - Psychiatric Psychiatric: memory intact, appropriate mood/affect, intact judgment & insight - Labs CBC & Chem 7: 01/22/17 07:20 01/23/17 06:10 Labs: Abnormal lab results 01/21/17 01/22/17 01/22/17 Range/Units 23:49 05:35 07:20 RBC (3.65-5.03) M/mm3 Hgb (10.1-14.3) gm/dl Hct (30.3-42.9) % MCH (28-32) pg RDW (13.2-15.2) % Potassium 3.3 L (3.6-5.0) mmol/L BUN 42 H (7-17) mg/dL Glucose 105 H (65-100) mg/dL POC Glucose 133 H 107 H (70-105) Phosphorus 1.70 L (2.5-4.5) mg/dL 01/22/17 01/22/17 Range/Units 07:20 11:31 RBC 2.75 L (3.65-5.03) M/mm3 Hgb 7.5 L (10.1-14.3) gm/dl Hct 22.7 L (30.3-42.9) % MCH 27 L (28-32) pg RDW 17.5 H (13.2-15.2) % Potassium (3.6-5.0) mmol/L BUN (7-17) mg/dL Glucose (65-100) mg/dL POC Glucose 124 H (70-105) Phosphorus (2.5-4.5) mg/dL
[2017-01-22] MEDS ORDERED: TPN ADULT IV SCH (20:00)
[2017-01-23] MEDS: DUONEB *Not for PRN Use IH SCH ×4 (01:13→20:03)
[2017-01-23] MEDS: REGLAN IV SCH ×3 (06:22→22:14)
[2017-01-23] MEDS: LASIX IV SCH ×2 (06:22→18:05)
[2017-01-23] MEDS: LOPRESSOR PO SCH ×3 (06:23→18:04)
[2017-01-23] MEDS: DILAUDID IV PRN ×2 (07:09→10:56)
[2017-01-23] MEDS: MERREM IV SCH (09:43)
[2017-01-23] MEDS: NACL 0.9% IV SCH (09:43)
[2017-01-23] MEDS: ROBINUL PO SCH ×2 (09:43→22:14)
[2017-01-23] MEDS: PROTONIX FEEDTUBE SCH (09:44)
[2017-01-23] MEDS: HEPARIN SUB-Q SCH ×2 (09:44→22:14)
--- NOTE | 2017-01-23 10:28 | Progress Note ---
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 Epogen 20k TIW * Dose medications for renal function * Avoid potential nephrotoxins * Rate control per cardiology * Vent management per pulm/CCM * Pressors prn for MAP>65 Subjective Date of service: 01/23/17 Principal diagnosis: Acute resp failure on MVS; S/P Acute CVA; Acute Encephalopathy; JUANITA Interval history: new events from last pm noted Objective - Exam Narrative Exam: Gen. appearance: Patient lying in bed, no apparent distress, 4. restraints HEENT: Normocephalic, atraumatic, pupils equally round and reactive to light, extraocular movement intact, and no sclericterus,. No JVD or thyromegaly or nodule,neck supple, no carotid bruit ,mucous membranes moist, unable to examine oral cavity Heart: S1, S2, regular rate and rhythm Lungs: Clear to auscultation bilaterally, breathing comfortable Abdomen: Positive bowel sounds, nontender, nondistended, no organomegaly Extremity: No edema, cyanosis, clubbing Skin: No rash, nodules, warm, dry Neuro: Difficult to assess, facial droop, moves all 4 extremities - Vital Signs Vital signs: Vital Signs - 12hr 01/22/17 01/22/17 01/22/17 22:57 23:00 23:21 Temperature Pulse Rate 102 H 104 H 104 H Pulse Rate [ Anterior Bilateral Throughout] Respiratory 14 Rate Respiratory Rate [Anterior Bilateral Throughout] Blood Pressure 108/60 113/66 113/66 O2 Sat by Pulse 99 99 Oximetry O2 Sat by Pulse Oximetry [ Assessment] 01/22/17 01/23/17 01/23/17 23:23 00:00 01:00 Temperature 99.7 F H Pulse Rate 104 H 102 H Pulse Rate [ Anterior Bilateral Throughout] Respiratory 20 21 Rate Respiratory Rate [Anterior Bilateral Throughout] Blood Pressure 109/54 103/57 O2 Sat by Pulse Oximetry O2 Sat by Pulse 99 Oximetry [ Assessment] 01/23/17 01/23/17 01/23/17 01:13 01:23 02:00 Temperature Pulse Rate 112 H Pulse Rate [ 108 H 106 H Anterior Bilateral Throughout] Respiratory 30 H Rate Respiratory 24 22 Rate [Anterior Bilateral Throughout] Blood Pressure 119/77 O2 Sat by Pulse 97 Oximetry O2 Sat by Pulse Oximetry [ Assessment] 01/23/17 01/23/17 01/23/17 03:00 03:15 04:00 Temperature 99.0 F Pulse Rate 104 H 107 H Pulse Rate [ Anterior Bilateral Throughout] Respiratory 21 Rate Respiratory Rate [Anterior Bilateral Throughout] Blood Pressure 105/67 105/67 O2 Sat by Pulse 96 97 100 Oximetry O2 Sat by Pulse Oximetry [ Assessment] 01/23/17 01/23/17 01/23/17 04:01 05:00 06:00 Temperature Pulse Rate 115 H 99 H 100 H Pulse Rate [ Anterior Bilateral Throughout] Respiratory 15 22 23 Rate Respiratory Rate [Anterior Bilateral Throughout] Blood Pressure 105/67 120/79 132/77 O2 Sat by Pulse 98 100 100 Oximetry O2 Sat by Pulse Oximetry [ Assessment] 01/23/17 01/23/17 01/23/17 06:23 07:00 08:00 Temperature 97.4 F L Pulse Rate 100 H 96 H 89 Pulse Rate [ Anterior Bilateral Throughout] Respiratory 20 18 Rate Respiratory Rate [Anterior Bilateral Throughout] Blood Pressure 132/77 138/86 116/77 O2 Sat by Pulse 100 100 Oximetry O2 Sat by Pulse Oximetry [ Assessment] 01/23/17 01/23/17 09:00 10:23 Temperature Pulse Rate 91 H 95 H Pulse Rate [ 94 H Anterior Bilateral Throughout] Respiratory 23 Rate Respiratory 20 Rate [Anterior Bilateral Throughout] Blood Pressure 124/76 112/69 O2 Sat by Pulse 100 Oximetry O2 Sat by Pulse Oximetry [ Assessment] - Lab 01/22/17 07:20 01/23/17 06:10 Most recent lab results ABG pH 7.450 pH Units (7.350-7.450) 12/05/16 Unknown ABG pCO2 29.6 mm Hg 12/05/16 Unknown ABG pO2 75.2 mm Hg (80.0-90.0) L 12/05/16 Unknown ABG HCO3 20.1 mmol/L (20.0-26.0) 12/05/16 Unknown ABG O2 Saturation 96.8 % (95.0-99.0) 12/05/16 Unknown Calcium 9.0 mg/dL (8.4-10.2) 01/23/17 06:10 Phosphorus 2.20 mg/dL (2.5-4.5) L D 01/23/17 06:10 Magnesium 1.70 mg/dL (1.7-2.3) 01/23/17 06:10 Urine Creatinine 19.7 mg/dL (0.1-20.0) 11/12/16 10:18 Urine Sodium 36 mEq/L 09/16/16 19:19 Urine Total Protein 16 mg/dL (5-11.8) H 09/16/16 19:19
--- NOTE | 2017-01-23 10:32 | Progress Note ---
Assessment and Plan Assessment: 1) Recurrent SIRS: unclear source, fever better. 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 gastric perf (PEG placed on 09/20) +/- TPN +/- central lines -TTE 10/07 no vegetations -PICC exchanged on 10/03 -fully treated with micafungin for 14 days last day 10/13 4) History CA-UTI s/p gutierrez exchanged 5) Diarrhea - ? etiology ? antibiotic-induced, not better. 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 from GI bleed 13) Recent abdominal wall abscess at surgical site-treated 14 ) Recent Enterococcal bacteremia from PICC line infection. 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 no cultures obtained 16) Presumed VAP: sputum + MDR Pseudomonas / Proteus Plan: -continue meropenem day 16 of 30 -wound care eval please call ID Thank you Dr Brown or your consultation, will follow up with you. Pauline Carias MD Infectious Diseases Specialist [facility] ([facility] M [phone] O [phone] Subjective Date of service: 01/23/17 Principal diagnosis: Acute resp failure on MVS; S/P Acute CVA; Acute Encephalopathy; JUANITA Interval history: Interval history: Alert, no fever, remains on the vent via trach + TPN Microbiology: Blood cultures: 09/13 neg 8/4 Silvia albicans / Silvia / neg 10/07 neg 11/05 neg 11/07 ngtd 11/22 E faecalis 1 of 4 bottles 11/25 neg / neg 01/09 ngtd Urine cultures: 09/10 neg 09/13 neg 8/4 10-100K mixed species 10/07 neg 11/05 VRE 11/07 mixed bacteria Respiratory cultures: 09/07 neg 09/13 neg 09/23 neg 11/07 MDR Pseudomonas 11/21 tracheal + VRE 01/09 Pseudomonas x 3 and Proteues Pleural effusion: ngtd Wound cultures: 10/17 abd wall wound purulence + Pseudomonas MDR Stool cultures: cath tip 11/07 + [employer] Current Antimicrobials: meropenem 01/08 Previous Antimicrobials: Zosyn 10/07 Vancomycin PO 10/01 Metronidazole 09/25 Micafungin 09/27-10/13 Meropenem 10/10 Vanco 10/17 zosyn 10/21 Cefepime 11/10 vancomyin 11/07 fluconazole 10/19 cefepime 10/29levaquin 11/05 vanco 11/23 Objective - Exam Narrative Exam: General appearance: somnolent non communicative, on the vent via trach in mild resp distress, no following commands Eyes: anicteric sclera, moist conjunctivae; PERRLA HENT: Atraumatic; oropharynx limited; Normal external ears. +NGT with greenish secretion Neck: +trach in place; supple, no thyromegaly or lymphadenopathy Lungs: brit coarse BS CV: rrr Abdomen: Soft, non-tender, +old PEG site no drainage. +iliostomy. Right sided Surgical site x 2 with ostomy bag draining small amount yellowish secretion Extremities: +peripheral edema Skin: sacral area wounds - per wound care STAGE 4 PRESSURE INJURY TO SACRAL MEASURES 7.5X6X2.5, WITH UNDERMINING FROM @9-1 OCLOCK-2.8CM-ULCER CLEANED WITH WOUND CLINIC MANAGER-ULCER Psych: somnolent . Neuro: alert non verbal on the vent. Lines: PICC / gutierrez - Constitutional Vitals: Vital Signs Temp Pulse Resp BP Pulse Ox 97.4 F L 94 H 20 112/69 100 01/23/17 08:00 01/23/17 10:23 01/23/17 10:23 01/23/17 10:23 01/23/17 09:00 Temperature -Last 24 Hours Temperature 97.4 F Temperature 99.0 F Temperature 99.7 F Temperature 99.0 F Temperature 98.9 F Temperature 99.1 F - Labs CBC & Chem 7: 01/22/17 07:20 01/23/17 06:10 Labs: Abnormal lab results 01/22/17 01/22/17 01/22/17 Range/Units 11:31 17:16 23:35 Potassium (3.6-5.0) mmol/L BUN (7-17) mg/dL Creatinine (0.7-1.2) mg/dL Glucose (65-100) mg/dL POC Glucose 124 H 135 H 120 H (70-105) Phosphorus (2.5-4.5) mg/dL 01/23/17 01/23/17 Range/Units 05:35 06:10 Potassium 3.3 L (3.6-5.0) mmol/L BUN 66 H (7-17) mg/dL Creatinine 1.3 H (0.7-1.2) mg/dL Glucose 109 H (65-100) mg/dL POC Glucose 111 H (70-105) Phosphorus 2.20 L D (2.5-4.5) mg/dL
[2017-01-23] MEDS: HumuLIN R SUB-Q SCH ×2 (14:14→14:15)
[2017-01-23] MEDS: HEPARIN IV PRN (15:11)
--- NOTE | 2017-01-23 15:15 | Progress Note ---
Assessment and Plan Patient is 46-year-old woman with a history of hypertension, diabetes mellitus, asthma, hyperlipidemia, chronic kidney disease and anxiety, who was brought in by family because she couldn't get her words out, her face was also twisted, she was admitted for acute CVA and accelerated hypertension, she had a hx of poor adherence with her medications, and uncontrolled htn. Patient's SBP on admission was noted be greater than 260. TPA was started but this it was discontinued after 5 minutes because her blood pressure became uncontrolled. The TPA was not initiated again because the patient was outside the TPA window. Patient has had a prolonged hospital stay complicated with recurrent severe sepsis. Patient with most recent event also status post cardiac arrest on , with CPR and ROSC. Acute on chronic Hypoxemic Respiratory Failure ( not tolerating spontaneous breathing trials) Sepsis -recurrent s/p tracheostomy Hypertension Atrial Fibrillation with RVR Acute encephalopathy s/p CVA Oropharyngeal dysphagia Enterococcal bacteremia Sacral Decubitus Ulcer- unstageable s/p debridement Anemia Obesity JUANITA now on hemodialysis Enteric Fistula - VAP bundle addressed -CXR prn, s/p thoracentesis. - continue NGT to LIS -Continue promotility agent--reglan - continue wound care per WCT - Vasopressor if MAP falls < 65mmHg - keep on with daily PSV trials and / or T-piece as tolerated - continue TPN administration (continue TPN; NPO except for meds) - continue airway clearance and secretion management - continue to wean FiO2 for sats > 94% - continue antihypertensives and monitor hemodynamics closely - continue HD/UF per nephrology - continue to follow electrolytes and correct as necessary - continue GI & VTE prophylaxis -per Cardiology--failed cardioversion, not a candidate fro full anticoagulation. No further recommendations for management of atrial fibrillation. Rate control as tolerated by hemodynamics For further interventions per surgical service, as it pertains to the replacement of the PEG tube-Surgical service states that the patient is too high risk to attempt PEG placement. 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 - Patient Problems (1) Acute respiratory failure with hypoxia Current Visit: Yes Status: Acute (2) Acute blood loss anemia Current Visit: Yes Status: Resolved (3) Acute CVA (cerebrovascular accident) Current Visit: Yes Status: Acute (4) Chronic renal insufficiency Current Visit: Yes Status: Acute (5) Uncontrolled hypertension Current Visit: Yes Status: Acute (6) Leukocytosis (leucocytosis) Current Visit: Yes Status: Acute Qualifiers: Leukocytosis type: leukemoid reaction Qualified Code(s): D72.823 - Leukemoid reaction (7) Dislodged gastrostomy tube Current Visit: Yes Status: Acute (8) Fungemia Current Visit: Yes Status: Resolved (9) Cardiopulmonary arrest with successful resuscitation Current Visit: Yes Status: Acute Subjective Date of service: 01/23/17 Principal diagnosis: Acute resp failure on MVS; S/P Acute CVA; Acute Encephalopathy; JUANITA Interval history: Patient is seen today for: Acute resp failure on MVS; S/P Acute CVA; Acute Encephalopathy; JUANITA Seen and examined at bedside; 24hour events reviewed; nursing and respiratory care staff consulted; no adverse overnight events reported to me; she remains critically ill , RT held weaning today, patient has had recurrent vomiting with episodes of desaturations Per RN on going vomiting. Vitals, labs, medications, chart reviewed. Discussed on interdisciplinary rounds Objective - Exam Narrative Exam: General appearance: somnolent non communicative, on the vent via trach in mild resp distress, no following commands Eyes: anicteric sclera, moist conjunctivae; PERRLA HENT: Atraumatic; oropharynx limited; Normal external ears. +NGT with greenish secretion Neck: +trach in place; supple, no thyromegaly or lymphadenopathy Lungs: brit coarse BS CV: rrr Abdomen: Soft, non-tender, +old PEG site no drainage. +iliostomy. Right sided Surgical site x 2 with ostomy bag draining small amount yellowish secretion Extremities: +peripheral edema Skin: sacral area wounds . Necrotic tissue noted on the wound edges and in the wound bed Psych: somnolent . Neuro: alert non verbal on the vent. Lines: PICC / gutierrez Vital Signs - 12hr 01/23/17 01/23/17 01/23/17 03:15 04:00 04:01 Temperature 99.0 F Pulse Rate 107 H 115 H Pulse Rate [ Anterior Bilateral Throughout] Respiratory 15 Rate Respiratory Rate [Anterior Bilateral Throughout] Blood Pressure 105/67 105/67 O2 Sat by Pulse 97 100 98 Oximetry O2 Sat by Pulse Oximetry [ Anterior Bilateral Throughout] 01/23/17 01/23/17 01/23/17 05:00 06:00 06:23 Temperature Pulse Rate 99 H 100 H 100 H Pulse Rate [ Anterior Bilateral Throughout] Respiratory 22 23 Rate Respiratory Rate [Anterior Bilateral Throughout] Blood Pressure 120/79 132/77 132/77 O2 Sat by Pulse 100 100 Oximetry O2 Sat by Pulse Oximetry [ Anterior Bilateral Throughout] 01/23/17 01/23/17 01/23/17 07:00 08:00 09:00 Temperature 97.4 F L Pulse Rate 96 H 89 91 H Pulse Rate [ Anterior Bilateral Throughout] Respiratory 20 18 23 Rate Respiratory Rate [Anterior Bilateral Throughout] Blood Pressure 138/86 116/77 124/76 O2 Sat by Pulse 100 100 100 Oximetry O2 Sat by Pulse Oximetry [ Anterior Bilateral Throughout] 01/23/17 01/23/17 01/23/17 10:00 10:23 10:38 Temperature Pulse Rate 96 H 95 H 101 H Pulse Rate [ 94 H 101 H Anterior Bilateral Throughout] Respiratory 22 29 H Rate Respiratory 20 24 Rate [Anterior Bilateral Throughout] Blood Pressure 112/69 112/69 112/69 O2 Sat by Pulse Oximetry O2 Sat by Pulse Oximetry [ Anterior Bilateral Throughout] 01/23/17 01/23/17 01/23/17 11:00 12:00 12:05 Temperature 97.8 F Pulse Rate 100 H 102 H 96 H Pulse Rate [ Anterior Bilateral Throughout] Respiratory 31 H 30 H Rate Respiratory Rate [Anterior Bilateral Throughout] Blood Pressure 109/62 125/78 123/77 O2 Sat by Pulse Oximetry O2 Sat by Pulse 94 Oximetry [ Anterior Bilateral Throughout] 01/23/17 01/23/17 01/23/17 12:15 12:30 12:45 Temperature Pulse Rate 103 H 105 H 105 H Pulse Rate [ Anterior Bilateral Throughout] Respiratory Rate Respiratory Rate [Anterior Bilateral Throughout] Blood Pressure 119/70 114/73 128/80 O2 Sat by Pulse Oximetry O2 Sat by Pulse Oximetry [ Anterior Bilateral Throughout] 01/23/17 01/23/17 01/23/17 12:55 13:00 13:15 Temperature Pulse Rate 108 H 115 H 108 H Pulse Rate [ Anterior Bilateral Throughout] Respiratory 40 H 39 H Rate Respiratory Rate [Anterior Bilateral Throughout] Blood Pressure 123/80 122/76 119/77 O2 Sat by Pulse 98 99 Oximetry O2 Sat by Pulse Oximetry [ Anterior Bilateral Throughout] 01/23/17 01/23/17 01/23/17 13:30 13:45 14:00 Temperature Pulse Rate 108 H 105 H 107 H Pulse Rate [ Anterior Bilateral Throughout] Respiratory 42 H Rate Respiratory Rate [Anterior Bilateral Throughout] Blood Pressure 123/82 109/74 108/75 O2 Sat by Pulse 100 Oximetry O2 Sat by Pulse Oximetry [ Anterior Bilateral Throughout] 01/23/17 01/23/17 01/23/17 14:15 14:30 14:45 Temperature Pulse Rate 106 H 109 H 112 H Pulse Rate [ Anterior Bilateral Throughout] Respiratory Rate Respiratory Rate [Anterior Bilateral Throughout] Blood Pressure 105/72 107/74 114/76 O2 Sat by Pulse Oximetry O2 Sat by Pulse Oximetry [ Anterior Bilateral Throughout] 01/23/17 01/23/17 15:00 15:05 Temperature Pulse Rate 112 H 110 H Pulse Rate [ Anterior Bilateral Throughout] Respiratory 43 H Rate Respiratory Rate [Anterior Bilateral Throughout] Blood Pressure 109/77 112/75 O2 Sat by Pulse 99 Oximetry O2 Sat by Pulse Oximetry [ Anterior Bilateral Throughout] Constitutional: appears uncomfortable, other (not tracking) Eyes: non-icteric, other (tracheostomy tube in midline of neck) ENT: oropharynx moist, oropharyngeal exudate pre Neck: supple, no lymphadenopathy, no JVD, other (no thyromegaly) Effort: mildly labored Ascultation: Bilateral: clear, diminished breath sounds (bases), rales, rhonchi (and referred upper airway sounds) Percussion: Bilateral: not dull, dull (bases) Cardiovascular: regular rate and rhythm, other (no rubs / murmurs) Gastrointestinal: hypoactive bowel sounds, soft, non-tender, non-distended, other (RLQ & LUQ stomas with colostomy bags) Integumentary: decubitus ulcer (sacral; stage 4 s/p surgical debridement), other (no rash; no cellulitis; poor turgor) Extremities: no cyanosis, pulses normal, no ischemia or petechiae, edema (1+ bilaterally) Neurologic: pupils equal and round, unable to assess, other (encephalopathic) Psychiatric: other (unable to assess) CBC and BMP: 01/26/17 04:20 01/27/17 04:00 ABG, PT/INR, D-dimer: ABG POC ABG pH 7.436 (7.35-7.45) 01/20/17 12:17 ABG pH 7.450 pH Units (7.350-7.450) 12/05/16 Unknown POC ABG pCO2 35.3 (35-45) 01/20/17 12:17 ABG pCO2 29.6 mm Hg 12/05/16 Unknown POC ABG pO2 70 (80-105) L 01/20/17 12: ABG pO2 75.2 mm Hg (80.0-90.0) L 12/05/16 Unknown POC ABG HCO3 23.8 01/20/17 12:17 POC ABG Total CO2 25 01/20/17 12:17 POC ABG O2 Sat 94 01/20/17 12: ABG O2 Saturation 96.8 % (95.0-99.0) 12/05/16 Unknown PT/INR, D-dimer PT 15.4 Sec. (12.2-14.9) H 01/13/17 15:50 INR 1.16 (0.87-1.13) H 01/13/17 15:50 Abnormal lab findings: Abnormal Labs 09/03/16 09/03/16 09/03/16 00:03 00:10 00:10 WBC 13.9 H RBC 5.95 H Hgb Hct 44.0 H MCV 74 L MCH 22 L MCHC RDW 17.5 H Plt Count Lymph % (Auto) [place] % (Auto) Lymph # [place] # Baso # Seg Neutrophils % Seg Neuts % (Manual) Lymphocytes % (Manual) 54.0 H Monocytes % (Manual) Eosinophils % (Manual) Basophils % (Manual) Nucleated RBC % Seg Neutrophils # Seg Neutrophils # Man Lymphocytes # (Manual) 7.5 H Monocytes # (Manual) Eosinophils # (Manual) Basophils # (Manual) PT INR Fibrinogen dRVVT Confirm Interp Factor V Activity POC ABG pH POC ABG pCO2 POC ABG pO2 ABG pO2 ABG HCO3 ABG Base Excess ABG Hemoglobin Oxyhemoglobin Sodium Potassium 2.8 L* Chloride Carbon Dioxide 21 L BUN Creatinine 1.7 H Glucose 159 H POC Glucose 177 H Lactic Acid Calcium Phosphorus Magnesium Direct Bilirubin AST ALT Alkaline Phosphatase Lactate Dehydrogenase Troponin T C-Reactive Protein Total Protein Albumin Prealbumin Triglycerides Cholesterol LDL Cholesterol Direct HDL Cholesterol Urine pH Urine WBC (Auto) Urine Creatinine Urine Total Protein Fluid Total Protein Vancomycin Trough Rheumatoid Factor Complement C4 Miscellaneous Test Crossmatch 09/03/16 09/03/16 09/03/16 12:12 15:07 16:20 WBC RBC Hgb Hct MCV MCH MCHC RDW Plt Count Lymph % (Auto) [place] % (Auto) Lymph # [place] # Baso # Seg Neutrophils % Seg Neuts % (Manual) Lymphocytes % (Manual) Monocytes % (Manual) Eosinophils % (Manual) Basophils % (Manual) Nucleated RBC % Seg Neutrophils # Seg Neutrophils # Man Lymphocytes # (Manual) Monocytes # (Manual) Eosinophils # (Manual) Basophils # (Manual) PT INR Fibrinogen dRVVT Confirm Interp Factor V Activity POC ABG pH 7.452 H POC ABG pCO2 POC ABG pO2 ABG pO2 ABG HCO3 ABG Base Excess ABG Hemoglobin Oxyhemoglobin Sodium Potassium Chloride Carbon Dioxide BUN Creatinine Glucose POC Glucose 178 H Lactic Acid Calcium Phosphorus 2.20 L Magnesium 1.60 L Direct Bilirubin AST ALT Alkaline Phosphatase Lactate Dehydrogenase Troponin T C-Reactive Protein Total Protein Albumin Prealbumin Triglycerides Cholesterol LDL Cholesterol Direct HDL Cholesterol Urine pH Urine WBC (Auto) Urine Creatinine Urine Total Protein Fluid Total Protein Vancomycin Trough Rheumatoid Factor Complement C4 Miscellaneous Test Crossmatch 09/03/16 09/03/16 09/03/16 17:57 17:58 23:50 WBC RBC Hgb Hct MCV MCH MCHC RDW Plt Count Lymph % (Auto) [place] % (Auto) Lymph # [place] # Baso # Seg Neutrophils % Seg Neuts % (Manual) Lymphocytes % (Manual) Monocytes % (Manual) Eosinophils % (Manual) Basophils % (Manual) Nucleated RBC % Seg Neutrophils # Seg Neutrophils # Man Lymphocytes # (Manual) Monocytes # (Manual) Eosinophils # (Manual) Basophils # (Manual) PT INR Fibrinogen dRVVT Confirm Interp Factor V Activity POC ABG pH POC ABG pCO2 POC ABG pO2 ABG pO2 ABG HCO3 ABG Base Excess ABG Hemoglobin Oxyhemoglobin Sodium Potassium Chloride Carbon Dioxide BUN Creatinine Glucose POC Glucose 162 H 145 H Lactic Acid Calcium Phosphorus 2.30 L Magnesium Direct Bilirubin AST ALT Alkaline Phosphatase Lactate Dehydrogenase Troponin T C-Reactive Protein Total Protein Albumin Prealbumin Triglycerides Cholesterol LDL Cholesterol Direct HDL Cholesterol Urine pH Urine WBC (Auto) Urine Creatinine Urine Total Protein Fluid Total Protein Vancomycin Trough Rheumatoid Factor Complement C4 Miscellaneous Test Crossmatch 09/04/16 09/04/16 09/04/16 03:31 03:31 05:42 WBC RBC Hgb 9.7 L D Hct MCV 72 L MCH 23 L MCHC RDW 17.5 H Plt Count Lymph % (Auto) 11.1 L [place] % (Auto) Lymph # [place] # Baso # Seg Neutrophils % 84.3 H Seg Neuts % (Manual) Lymphocytes % (Manual) Monocytes % (Manual) Eosinophils % (Manual) Basophils % (Manual) Nucleated RBC % Seg Neutrophils # 8.9 H Seg Neutrophils # Man Lymphocytes # (Manual) Monocytes # (Manual) Eosinophils # (Manual) Basophils # (Manual) PT INR Fibrinogen dRVVT Confirm Interp Factor V Activity POC ABG pH POC ABG pCO2 POC ABG pO2 ABG pO2 ABG HCO3 ABG Base Excess ABG Hemoglobin Oxyhemoglobin Sodium 135 L Potassium 2.9 L* Chloride 97.2 L Carbon Dioxide 19 L BUN Creatinine 1.7 H Glucose 170 H POC Glucose 152 H Lactic Acid Calcium Phosphorus Magnesium Direct Bilirubin AST ALT Alkaline Phosphatase Lactate Dehydrogenase Troponin T C-Reactive Protein Total Protein Albumin Prealbumin Triglycerides 160 H Cholesterol LDL Cholesterol Direct HDL Cholesterol 31 L Urine pH Urine WBC (Auto) Urine Creatinine Urine Total Protein Fluid Total Protein Vancomycin Trough Rheumatoid Factor Complement C4 Miscellaneous Test Crossmatch 09/04/16 09/04/16 09/04/16 11:34 17:46 23:29 WBC RBC Hgb Hct MCV MCH MCHC RDW Plt Count Lymph % (Auto) [place] % (Auto) Lymph # [place] # Baso # Seg Neutrophils % Seg Neuts % (Manual) Lymphocytes % (Manual) Monocytes % (Manual) Eosinophils % (Manual) Basophils % (Manual) Nucleated RBC % Seg Neutrophils # Seg Neutrophils # Man Lymphocytes # (Manual) Monocytes # (Manual) Eosinophils # (Manual) Basophils # (Manual) PT INR Fibrinogen dRVVT Confirm Interp Factor V Activity POC ABG pH POC ABG pCO2 POC ABG pO2 ABG pO2 ABG HCO3 ABG Base Excess ABG Hemoglobin Oxyhemoglobin Sodium Potassium Chloride Carbon Dioxide BUN Creatinine Glucose POC Glucose 165 H 210 H 139 H Lactic Acid Calcium Phosphorus Magnesium Direct Bilirubin AST ALT Alkaline Phosphatase Lactate Dehydrogenase Troponin T C-Reactive Protein Total Protein Albumin Prealbumin Triglycerides Cholesterol LDL Cholesterol Direct HDL Cholesterol Urine pH Urine WBC (Auto) Urine Creatinine Urine Total Protein Fluid Total Protein Vancomycin Trough Rheumatoid Factor Complement C4 Miscellaneous Test Crossmatch 09/05/16 09/05/16 09/05/16 04:05 04:05 05:38 WBC RBC Hgb Hct MCV 76 L D MCH 23 L MCHC RDW 17.8 H Plt Count Lymph % (Auto) [place] % (Auto) Lymph # [place] # Baso # Seg Neutrophils % Seg Neuts % (Manual) Lymphocytes % (Manual) Monocytes % (Manual) Eosinophils % (Manual) Basophils % (Manual) Nucleated RBC % Seg Neutrophils # Seg Neutrophils # Man Lymphocytes # (Manual) Monocytes # (Manual) Eosinophils # (Manual) Basophils # (Manual) PT INR Fibrinogen dRVVT Confirm Interp Factor V Activity POC ABG pH POC ABG pCO2 POC ABG pO2 ABG pO2 ABG HCO3 ABG Base Excess ABG Hemoglobin Oxyhemoglobin Sodium 134 L Potassium Chloride Carbon Dioxide 18 L BUN Creatinine 1.8 H Glucose 192 H POC Glucose 175 H Lactic Acid Calcium Phosphorus Magnesium Direct Bilirubin AST ALT Alkaline Phosphatase Lactate Dehydrogenase Troponin T C-Reactive Protein Total Protein Albumin Prealbumin Triglycerides Cholesterol LDL Cholesterol Direct HDL Cholesterol Urine pH Urine WBC (Auto) Urine Creatinine Urine Total Protein Fluid Total Protein Vancomycin Trough Rheumatoid Factor Complement C4 Miscellaneous Test Crossmatch 09/05/16 09/05/16 09/05/16 11:38 17:48 23:22 WBC RBC Hgb Hct MCV MCH MCHC RDW Plt Count Lymph % (Auto) [place] % (Auto) Lymph # [place] # Baso # Seg Neutrophils % Seg Neuts % (Manual) Lymphocytes % (Manual) Monocytes % (Manual) Eosinophils % (Manual) Basophils % (Manual) Nucleated RBC % Seg Neutrophils # Seg Neutrophils # Man Lymphocytes # (Manual) Monocytes # (Manual) Eosinophils # (Manual) Basophils # (Manual) PT INR Fibrinogen dRVVT Confirm Interp Factor V Activity POC ABG pH POC ABG pCO2 POC ABG pO2 ABG pO2 ABG HCO3 ABG Base Excess ABG Hemoglobin Oxyhemoglobin Sodium Potassium Chloride Carbon Dioxide BUN Creatinine Glucose POC Glucose 164 H 186 H 195 H Lactic Acid Calcium Phosphorus Magnesium Direct Bilirubin AST ALT Alkaline Phosphatase Lactate Dehydrogenase Troponin T C-Reactive Protein Total Protein Albumin Prealbumin Triglycerides Cholesterol LDL Cholesterol Direct HDL Cholesterol Urine pH Urine WBC (Auto) Urine Creatinine Urine Total Protein Fluid Total Protein Vancomycin Trough Rheumatoid Factor Complement C4 Miscellaneous Test Crossmatch 09/06/16 09/06/16 09/06/16 04:12 05:59 07:32 WBC RBC Hgb Hct MCV MCH MCHC RDW Plt Count Lymph % (Auto) [place] % (Auto) Lymph # [place] # Baso # Seg Neutrophils % Seg Neuts % (Manual) Lymphocytes % (Manual) Monocytes % (Manual) Eosinophils % (Manual) Basophils % (Manual) Nucleated RBC % Seg Neutrophils # Seg Neutrophils # Man Lymphocytes # (Manual) Monocytes # (Manual) Eosinophils # (Manual) Basophils # (Manual) PT INR Fibrinogen dRVVT Confirm Interp Factor V Activity POC ABG pH 7.514 H POC ABG pCO2 29.1 L POC ABG pO2 72 L ABG pO2 ABG HCO3 ABG Base Excess ABG Hemoglobin Oxyhemoglobin Sodium 133 L Potassium 3.4 L Chloride 94.9 L Carbon Dioxide 19 L BUN 30 H Creatinine 2.1 H Glucose 139 H POC Glucose 146 H Lactic Acid Calcium Phosphorus Magnesium Direct Bilirubin AST ALT Alkaline Phosphatase Lactate Dehydrogenase Troponin T C-Reactive Protein Total Protein Albumin Prealbumin Triglycerides Cholesterol LDL Cholesterol Direct HDL Cholesterol Urine pH Urine WBC (Auto) Urine Creatinine Urine Total Protein Fluid Total Protein Vancomycin Trough Rheumatoid Factor Complement C4 Miscellaneous Test Crossmatch 09/06/16 09/06/16 09/06/16 11:57 17:58 19:02 WBC RBC Hgb Hct MCV MCH MCHC RDW Plt Count Lymph % (Auto) [place] % (Auto) Lymph # [place] # Baso # Seg Neutrophils % Seg Neuts % (Manual) Lymphocytes % (Manual) Monocytes % (Manual) Eosinophils % (Manual) Basophils % (Manual) Nucleated RBC % Seg Neutrophils # Seg Neutrophils # Man Lymphocytes # (Manual) Monocytes # (Manual) Eosinophils # (Manual) Basophils # (Manual) PT INR Fibrinogen dRVVT Confirm Interp Factor V Activity POC ABG pH 7.465 H POC ABG pCO2 32.0 L POC ABG pO2 ABG pO2 ABG HCO3 ABG Base Excess ABG Hemoglobin Oxyhemoglobin Sodium Potassium Chloride Carbon Dioxide BUN Creatinine Glucose POC Glucose 165 H 160 H Lactic Acid Calcium Phosphorus Magnesium Direct Bilirubin AST ALT Alkaline Phosphatase Lactate Dehydrogenase Troponin T C-Reactive Protein Total Protein Albumin Prealbumin Triglycerides Cholesterol LDL Cholesterol Direct HDL Cholesterol Urine pH Urine WBC (Auto) Urine Creatinine Urine Total Protein Fluid Total Protein Vancomycin Trough Rheumatoid Factor Complement C4 Miscellaneous Test Crossmatch 09/06/16 09/07/16 09/07/16 23:45 02:47 02:47 WBC RBC Hgb Hct MCV MCH MCHC RDW Plt Count Lymph % (Auto) [place] % (Auto) Lymph # [place] # Baso # Seg Neutrophils % Seg Neuts % (Manual) Lymphocytes % (Manual) Monocytes % (Manual) Eosinophils % (Manual) Basophils % (Manual) Nucleated RBC % Seg Neutrophils # Seg Neutrophils # Man Lymphocytes # (Manual) Monocytes # (Manual) Eosinophils # (Manual) Basophils # (Manual) PT INR Fibrinogen dRVVT Confirm Interp Factor V Activity POC ABG pH POC ABG pCO2 POC ABG pO2 ABG pO2 ABG HCO3 ABG Base Excess ABG Hemoglobin Oxyhemoglobin Sodium Potassium Chloride Carbon Dioxide BUN Creatinine Glucose POC Glucose 204 H Lactic Acid Calcium Phosphorus Magnesium Direct Bilirubin AST ALT Alkaline Phosphatase Lactate Dehydrogenase Troponin T C-Reactive Protein Total Protein Albumin Prealbumin Triglycerides Cholesterol LDL Cholesterol Direct HDL Cholesterol Urine pH Urine WBC (Auto) 68.0 H Urine Creatinine 106.1 H Urine Total Protein Fluid Total Protein Vancomycin Trough Rheumatoid Factor Complement C4 Miscellaneous Test Crossmatch 09/07/16 09/07/16 09/07/16 04:50 06:19 06:39 WBC RBC Hgb Hct MCV MCH MCHC RDW Plt Count Lymph % (Auto) [place] % (Auto) Lymph # [place] # Baso # Seg Neutrophils % Seg Neuts % (Manual) Lymphocytes % (Manual) Monocytes % (Manual) Eosinophils % (Manual) Basophils % (Manual) Nucleated RBC % Seg Neutrophils # Seg Neutrophils # Man Lymphocytes # (Manual) Monocytes # (Manual) Eosinophils # (Manual) Basophils # (Manual) PT INR Fibrinogen dRVVT Confirm Interp Factor V Activity POC ABG pH 7.457 H POC ABG pCO2 32.1 L POC ABG pO2 76 L ABG pO2 ABG HCO3 ABG Base Excess ABG Hemoglobin Oxyhemoglobin Sodium 132 L Potassium Chloride 94.7 L Carbon Dioxide BUN 53 H Creatinine 2.9 H Glucose 151 H POC Glucose 149 H Lactic Acid Calcium Phosphorus Magnesium Direct Bilirubin AST ALT Alkaline Phosphatase Lactate Dehydrogenase Troponin T C-Reactive Protein Total Protein Albumin Prealbumin Triglycerides Cholesterol LDL Cholesterol Direct HDL Cholesterol Urine pH Urine WBC (Auto) Urine Creatinine Urine Total Protein Fluid Total Protein Vancomycin Trough Rheumatoid Factor Complement C4 Miscellaneous Test Crossmatch 09/07/16 09/07/16 09/07/16 09:20 11:43 11:43 WBC 19.4 H RBC Hgb 8.3 L Hct 26.4 L D MCV 72 L D MCH 22 L MCHC RDW 17.9 H Plt Count Lymph % (Auto) 8.5 L [place] % (Auto) Lymph # [place] # 1.0 H Baso # Seg Neutrophils % 85.8 H Seg Neuts % (Manual) Lymphocytes % (Manual) Monocytes % (Manual) Eosinophils % (Manual) Basophils % (Manual) Nucleated RBC % Seg Neutrophils # 16.6 H Seg Neutrophils # Man Lymphocytes # (Manual) Monocytes # (Manual) Eosinophils # (Manual) Basophils # (Manual) PT INR Fibrinogen dRVVT Confirm Interp Factor V Activity POC ABG pH POC ABG pCO2 POC ABG pO2 ABG pO2 ABG HCO3 ABG Base Excess ABG Hemoglobin Oxyhemoglobin Sodium 134 L Potassium Chloride 97.2 L Carbon Dioxide 20 L BUN 58 H Creatinine 2.9 H Glucose 147 H POC Glucose Lactic Acid Calcium Phosphorus 2.40 L Magnesium 2.40 H Direct Bilirubin AST ALT Alkaline Phosphatase Lactate Dehydrogenase Troponin T C-Reactive Protein Total Protein 5.8 L Albumin 2.2 L Prealbumin Triglycerides Cholesterol LDL Cholesterol Direct HDL Cholesterol Urine pH Urine WBC (Auto) Urine Creatinine Urine Total Protein Fluid Total Protein Vancomycin Trough Rheumatoid Factor Complement C4 58 H Miscellaneous Test Crossmatch 09/07/16 09/07/16 09/07/16 11:50 16:00 17:31 WBC RBC Hgb Hct MCV MCH MCHC RDW Plt Count Lymph % (Auto) [place] % (Auto) Lymph # [place] # Baso # Seg Neutrophils % Seg Neuts % (Manual) Lymphocytes % (Manual) Monocytes % (Manual) Eosinophils % (Manual) Basophils % (Manual) Nucleated RBC % Seg Neutrophils # Seg Neutrophils # Man Lymphocytes # (Manual) Monocytes # (Manual) Eosinophils # (Manual) Basophils # (Manual) PT INR Fibrinogen dRVVT Confirm Interp Factor V Activity POC ABG pH POC ABG pCO2 POC ABG pO2 158 H ABG pO2 ABG HCO3 ABG Base Excess ABG Hemoglobin Oxyhemoglobin Sodium Potassium Chloride Carbon Dioxide BUN Creatinine Glucose POC Glucose 175 H Lactic Acid Calcium Phosphorus Magnesium Direct Bilirubin AST ALT Alkaline Phosphatase Lactate Dehydrogenase Troponin T C-Reactive Protein Total Protein Albumin Prealbumin Triglycerides Cholesterol LDL Cholesterol Direct HDL Cholesterol Urine pH Urine WBC (Auto) Urine Creatinine 66.3 H Urine Total Protein Fluid Total Protein Vancomycin Trough Rheumatoid Factor Complement C4 Miscellaneous Test Crossmatch 09/07/16 09/08/16 09/08/16 23:50 05:46 06:18 WBC 17.8 H RBC 3.58 L Hgb 8.1 L Hct 25.5 L MCV 71 L MCH 23 L MCHC RDW 18.4 H Plt Count Lymph % (Auto) [place] % (Auto) Lymph # [place] # Baso # Seg Neutrophils % Seg Neuts % (Manual) 92.0 H Lymphocytes % (Manual) 6.0 L Monocytes % (Manual) Eosinophils % (Manual) Basophils % (Manual) Nucleated RBC % Seg Neutrophils # Seg Neutrophils # Man 16.4 H Lymphocytes # (Manual) 1.1 L Monocytes # (Manual) Eosinophils # (Manual) Basophils # (Manual) PT INR Fibrinogen dRVVT Confirm Interp Factor V Activity POC ABG pH POC ABG pCO2 34.3 L POC ABG pO2 71 L ABG pO2 ABG HCO3 ABG Base Excess ABG Hemoglobin Oxyhemoglobin Sodium Potassium Chloride Carbon Dioxide BUN Creatinine Glucose POC Glucose 216 H Lactic Acid Calcium Phosphorus Magnesium Direct Bilirubin AST ALT Alkaline Phosphatase Lactate Dehydrogenase Troponin T C-Reactive Protein Total Protein Albumin Prealbumin Triglycerides Cholesterol LDL Cholesterol Direct HDL Cholesterol Urine pH Urine WBC (Auto) Urine Creatinine Urine Total Protein Fluid Total Protein Vancomycin Trough Rheumatoid Factor Complement C4 Miscellaneous Test Crossmatch 09/08/16 09/08/16 09/08/16 06:18 06:51 10:55 WBC RBC Hgb Hct MCV MCH MCHC RDW Plt Count Lymph % (Auto) [place] % (Auto) Lymph # [place] # Baso # Seg Neutrophils % Seg Neuts % (Manual) Lymphocytes % (Manual) Monocytes % (Manual) Eosinophils % (Manual) Basophils % (Manual) Nucleated RBC % Seg Neutrophils # Seg Neutrophils # Man Lymphocytes # (Manual) Monocytes # (Manual) Eosinophils # (Manual) Basophils # (Manual) PT INR Fibrinogen dRVVT Confirm Interp Factor V Activity POC ABG pH POC ABG pCO2 POC ABG pO2 ABG pO2 ABG HCO3 ABG Base Excess ABG Hemoglobin Oxyhemoglobin Sodium 133 L Potassium Chloride 96.9 L Carbon Dioxide 20 L BUN 63 H Creatinine 2.7 H Glucose 195 H POC Glucose 204 H 169 H Lactic Acid Calcium Phosphorus Magnesium Direct Bilirubin AST ALT Alkaline Phosphatase Lactate Dehydrogenase Troponin T C-Reactive Protein Total Protein Albumin Prealbumin Triglycerides Cholesterol LDL Cholesterol Direct HDL Cholesterol Urine pH Urine WBC (Auto) Urine Creatinine Urine Total Protein Fluid Total Protein Vancomycin Trough Rheumatoid Factor Complement C4 Miscellaneous Test Crossmatch 09/08/16 09/08/16 09/08/16 11:48 11:48 11:48 WBC RBC Hgb Hct MCV MCH MCHC RDW Plt Count Lymph % (Auto) [place] % (Auto) Lymph # [place] # Baso # Seg Neutrophils % Seg Neuts % (Manual) Lymphocytes % (Manual) Monocytes % (Manual) Eosinophils % (Manual) Basophils % (Manual) Nucleated RBC % Seg Neutrophils # Seg Neutrophils # Man Lymphocytes # (Manual) Monocytes # (Manual) Eosinophils # (Manual) Basophils # (Manual) PT INR Fibrinogen 750 H dRVVT Confirm Interp Factor V Activity POC ABG pH POC ABG pCO2 POC ABG pO2 ABG pO2 ABG HCO3 ABG Base Excess ABG Hemoglobin Oxyhemoglobin Sodium Potassium Chloride Carbon Dioxide BUN Creatinine Glucose POC Glucose Lactic Acid Calcium Phosphorus Magnesium Direct Bilirubin AST ALT Alkaline Phosphatase Lactate Dehydrogenase Troponin T C-Reactive Protein 15.70 H Total Protein Albumin Prealbumin Triglycerides Cholesterol LDL Cholesterol Direct HDL Cholesterol Urine pH Urine WBC (Auto) Urine Creatinine Urine Total Protein Fluid Total Protein Vancomycin Trough Rheumatoid Factor 24 H Complement C4 Miscellaneous Test Crossmatch 09/08/16 09/08/16 09/09/16 15:35 18:25 00:24 WBC RBC Hgb Hct MCV MCH MCHC RDW Plt Count Lymph % (Auto) [place] % (Auto) Lymph # [place] # Baso # Seg Neutrophils % Seg Neuts % (Manual) Lymphocytes % (Manual) Monocytes % (Manual) Eosinophils % (Manual) Basophils % (Manual) Nucleated RBC % Seg Neutrophils # Seg Neutrophils # Man Lymphocytes # (Manual) Monocytes # (Manual) Eosinophils # (Manual) Basophils # (Manual) PT INR Fibrinogen dRVVT Confirm Interp Factor V Activity 182 H POC ABG pH POC ABG pCO2 POC ABG pO2 ABG pO2 ABG HCO3 ABG Base Excess ABG Hemoglobin Oxyhemoglobin Sodium Potassium Chloride Carbon Dioxide BUN Creatinine Glucose POC Glucose 184 H 216 H Lactic Acid Calcium Phosphorus Magnesium Direct Bilirubin AST ALT Alkaline Phosphatase Lactate Dehydrogenase Troponin T C-Reactive Protein Total Protein Albumin Prealbumin Triglycerides Cholesterol LDL Cholesterol Direct HDL Cholesterol Urine pH Urine WBC (Auto) Urine Creatinine Urine Total Protein Fluid Total Protein Vancomycin Trough Rheumatoid Factor Complement C4 Miscellaneous Test Crossmatch 09/09/16 09/09/16 09/09/16 03:00 03:00 04:04 WBC 27.9 H RBC Hgb 8.7 L Hct 28.1 L MCV 72 L MCH 22 L MCHC RDW 18.4 H Plt Count 485 H Lymph % (Auto) [place] % (Auto) Lymph # [place] # Baso # Seg Neutrophils % Seg Neuts % (Manual) 77.0 H Lymphocytes % (Manual) 9.0 L Monocytes % (Manual) Eosinophils % (Manual) Basophils % (Manual) Nucleated RBC % Seg Neutrophils # Seg Neutrophils # Man 21.5 H Lymphocytes # (Manual) Monocytes # (Manual) 2.0 H Eosinophils # (Manual) Basophils # (Manual) PT INR Fibrinogen dRVVT Confirm Interp Factor V Activity POC ABG pH POC ABG pCO2 POC ABG pO2 121 H ABG pO2 ABG HCO3 ABG Base Excess ABG Hemoglobin Oxyhemoglobin Sodium 135 L Potassium Chloride 96.3 L Carbon Dioxide 21 L BUN 83 H Creatinine 3.0 H Glucose 135 H POC Glucose Lactic Acid Calcium Phosphorus Magnesium Direct Bilirubin AST ALT Alkaline Phosphatase Lactate Dehydrogenase Troponin T C-Reactive Protein Total Protein Albumin Prealbumin Triglycerides Cholesterol LDL Cholesterol Direct HDL Cholesterol Urine pH Urine WBC (Auto) Urine Creatinine Urine Total Protein Fluid Total Protein Vancomycin Trough Rheumatoid Factor Complement C4 Miscellaneous Test Crossmatch 09/09/16 09/09/16 09/09/16 05:41 11:55 14:13 WBC RBC Hgb Hct MCV MCH MCHC RDW Plt Count Lymph % (Auto) [place] % (Auto) Lymph # [place] # Baso # Seg Neutrophils % Seg Neuts % (Manual) Lymphocytes % (Manual) Monocytes % (Manual) Eosinophils % (Manual) Basophils % (Manual) Nucleated RBC % Seg Neutrophils # Seg Neutrophils # Man Lymphocytes # (Manual) Monocytes # (Manual) Eosinophils # (Manual) Basophils # (Manual) PT INR Fibrinogen dRVVT Confirm Interp Factor V Activity POC ABG pH POC ABG pCO2 POC ABG pO2 ABG pO2 ABG HCO3 ABG Base Excess ABG Hemoglobin Oxyhemoglobin Sodium Potassium Chloride Carbon Dioxide BUN Creatinine Glucose POC Glucose 155 H 186 H Lactic Acid Calcium Phosphorus Magnesium Direct Bilirubin AST ALT Alkaline Phosphatase Lactate Dehydrogenase Troponin T C-Reactive Protein Total Protein Albumin Prealbumin Triglycerides Cholesterol LDL Cholesterol Direct HDL Cholesterol Urine pH Urine WBC (Auto) 25.0 H Urine Creatinine Urine Total Protein Fluid Total Protein Vancomycin Trough Rheumatoid Factor Complement C4 Miscellaneous Test Crossmatch 09/09/16 09/09/16 09/10/16 17:33 23:13 05:09 WBC RBC Hgb Hct MCV MCH MCHC RDW Plt Count Lymph % (Auto) [place] % (Auto) Lymph # [place] # Baso # Seg Neutrophils % Seg Neuts % (Manual) Lymphocytes % (Manual) Monocytes % (Manual) Eosinophils % (Manual) Basophils % (Manual) Nucleated RBC % Seg Neutrophils # Seg Neutrophils # Man Lymphocytes # (Manual) Monocytes # (Manual) Eosinophils # (Manual) Basophils # (Manual) PT INR Fibrinogen dRVVT Confirm Interp Factor V Activity POC ABG pH POC ABG pCO2 POC ABG pO2 74 L ABG pO2 ABG HCO3 ABG Base Excess ABG Hemoglobin Oxyhemoglobin Sodium Potassium Chloride Carbon Dioxide BUN Creatinine Glucose POC Glucose 211 H 215 H Lactic Acid Calcium Phosphorus Magnesium Direct Bilirubin AST ALT Alkaline Phosphatase Lactate Dehydrogenase Troponin T C-Reactive Protein Total Protein Albumin Prealbumin Triglycerides Cholesterol LDL Cholesterol Direct HDL Cholesterol Urine pH Urine WBC (Auto) Urine Creatinine Urine Total Protein Fluid Total Protein Vancomycin Trough Rheumatoid Factor Complement C4 Miscellaneous Test Crossmatch 09/10/16 09/10/16 09/10/16 05:17 05:17 11:31 WBC 15.8 H RBC 3.25 L Hgb 7.3 L Hct 22.9 L MCV 71 L MCH 23 L MCHC RDW 18.4 H Plt Count Lymph % (Auto) [place] % (Auto) Lymph # [place] # Baso # Seg Neutrophils % Seg Neuts % (Manual) 91.0 H Lymphocytes % (Manual) 4.0 L Monocytes % (Manual) Eosinophils % (Manual) Basophils % (Manual) Nucleated RBC % Seg Neutrophils # Seg Neutrophils # Man 14.4 H Lymphocytes # (Manual) 0.6 L Monocytes # (Manual) Eosinophils # (Manual) Basophils # (Manual) PT INR Fibrinogen dRVVT Confirm Interp Factor V Activity POC ABG pH POC ABG pCO2 POC ABG pO2 ABG pO2 ABG HCO3 ABG Base Excess ABG Hemoglobin Oxyhemoglobin Sodium Potassium Chloride Carbon Dioxide 21 L BUN 93 H Creatinine 2.9 H Glucose 146 H POC Glucose 188 H Lactic Acid Calcium 8.1 L Phosphorus Magnesium Direct Bilirubin AST ALT Alkaline Phosphatase Lactate Dehydrogenase Troponin T C-Reactive Protein Total Protein Albumin Prealbumin Triglycerides Cholesterol LDL Cholesterol Direct HDL Cholesterol Urine pH Urine WBC (Auto) Urine Creatinine Urine Total Protein Fluid Total Protein Vancomycin Trough Rheumatoid Factor Complement C4 Miscellaneous Test Crossmatch 09/10/16 09/10/16 09/10/16 13:17 17:20 23:32 WBC RBC Hgb Hct MCV MCH MCHC RDW Plt Count Lymph % (Auto) [place] % (Auto) Lymph # [place] # Baso # Seg Neutrophils % Seg Neuts % (Manual) Lymphocytes % (Manual) Monocytes % (Manual) Eosinophils % (Manual) Basophils % (Manual) Nucleated RBC % Seg Neutrophils # Seg Neutrophils # Man Lymphocytes # (Manual) Monocytes # (Manual) Eosinophils # (Manual) Basophils # (Manual) PT INR Fibrinogen dRVVT Confirm Interp Factor V Activity POC ABG pH POC ABG pCO2 POC ABG pO2 ABG pO2 ABG HCO3 ABG Base Excess ABG Hemoglobin Oxyhemoglobin Sodium Potassium Chloride Carbon Dioxide BUN Creatinine Glucose POC Glucose 199 H 186 H Lactic Acid Calcium Phosphorus Magnesium Direct Bilirubin AST ALT Alkaline Phosphatase Lactate Dehydrogenase Troponin T C-Reactive Protein Total Protein Albumin Prealbumin Triglycerides Cholesterol LDL Cholesterol Direct HDL Cholesterol Urine pH Urine WBC (Auto) Urine Creatinine Urine Total Protein Fluid Total Protein Vancomycin Trough Rheumatoid Factor Complement C4 Miscellaneous Test Crossmatch See Detail 09/11/16 09/11/16 09/11/16 05:10 05:10 05:17 WBC 28.4 H RBC Hgb 9.2 L Hct 29.3 L D MCV 73 L MCH 23 L MCHC RDW 18.9 H Plt Count 452 H Lymph % (Auto) [place] % (Auto) Lymph # [place] # Baso # Seg Neutrophils % Seg Neuts % (Manual) 89.5 H Lymphocytes % (Manual) 2.0 L Monocytes % (Manual) Eosinophils % (Manual) Basophils % (Manual) Nucleated RBC % Seg Neutrophils # Seg Neutrophils # Man 25.4 H Lymphocytes # (Manual) 0.6 L Monocytes # (Manual) 1.3 H Eosinophils # (Manual) Basophils # (Manual) PT INR Fibrinogen dRVVT Confirm Interp Factor V Activity POC ABG pH POC ABG pCO2 POC ABG pO2 ABG pO2 ABG HCO3 ABG Base Excess ABG Hemoglobin Oxyhemoglobin Sodium 136 L Potassium Chloride Carbon Dioxide 18 L BUN 107 H Creatinine 2.6 H Glucose 187 H POC Glucose 230 H Lactic Acid Calcium 8.3 L Phosphorus Magnesium Direct Bilirubin AST ALT Alkaline Phosphatase Lactate Dehydrogenase Troponin T C-Reactive Protein Total Protein Albumin Prealbumin Triglycerides Cholesterol LDL Cholesterol Direct HDL Cholesterol Urine pH Urine WBC (Auto) Urine Creatinine Urine Total Protein Fluid Total Protein Vancomycin Trough Rheumatoid Factor Complement C4 Miscellaneous Test Crossmatch 09/11/16 09/11/16 09/11/16 05:55 12:02 17:32 WBC RBC Hgb Hct MCV MCH MCHC RDW Plt Count Lymph % (Auto) [place] % (Auto) Lymph # [place] # Baso # Seg Neutrophils % Seg Neuts % (Manual) Lymphocytes % (Manual) Monocytes % (Manual) Eosinophils % (Manual) Basophils % (Manual) Nucleated RBC % Seg Neutrophils # Seg Neutrophils # Man Lymphocytes # (Manual) Monocytes # (Manual) Eosinophils # (Manual) Basophils # (Manual) PT INR Fibrinogen dRVVT Confirm Interp Factor V Activity POC ABG pH POC ABG pCO2 33.8 L POC ABG pO2 ABG pO2 ABG HCO3 ABG Base Excess ABG Hemoglobin Oxyhemoglobin Sodium Potassium Chloride Carbon Dioxide BUN Creatinine Glucose POC Glucose 191 H 239 H Lactic Acid Calcium Phosphorus Magnesium Direct Bilirubin AST ALT Alkaline Phosphatase Lactate Dehydrogenase Troponin T C-Reactive Protein Total Protein Albumin Prealbumin Triglycerides Cholesterol LDL Cholesterol Direct HDL Cholesterol Urine pH Urine WBC (Auto) Urine Creatinine Urine Total Protein Fluid Total Protein Vancomycin Trough Rheumatoid Factor Complement C4 Miscellaneous Test Crossmatch 09/11/16 09/12/16 09/12/16 23:52 05:09 05:32 WBC RBC Hgb Hct MCV MCH MCHC RDW Plt Count Lymph % (Auto) [place] % (Auto) Lymph # [place] # Baso # Seg Neutrophils % Seg Neuts % (Manual) Lymphocytes % (Manual) Monocytes % (Manual) Eosinophils % (Manual) Basophils % (Manual) Nucleated RBC % Seg Neutrophils # Seg Neutrophils # Man Lymphocytes # (Manual) Monocytes # (Manual) Eosinophils # (Manual) Basophils # (Manual) PT INR Fibrinogen dRVVT Confirm Interp Factor V Activity POC ABG pH POC ABG pCO2 34.6 L POC ABG pO2 ABG pO2 ABG HCO3 ABG Base Excess ABG Hemoglobin Oxyhemoglobin Sodium Potassium Chloride Carbon Dioxide BUN Creatinine Glucose POC Glucose 265 H 184 H Lactic Acid Calcium Phosphorus Magnesium Direct Bilirubin AST ALT Alkaline Phosphatase Lactate Dehydrogenase Troponin T C-Reactive Protein Total Protein Albumin Prealbumin Triglycerides Cholesterol LDL Cholesterol Direct HDL Cholesterol Urine pH Urine WBC (Auto) Urine Creatinine Urine Total Protein Fluid Total Protein Vancomycin Trough Rheumatoid Factor Complement C4 Miscellaneous Test Crossmatch 09/12/16 09/12/16 09/12/16 06:45 06:45 07:22 WBC 31.7 H RBC 3.54 L Hgb 8.3 L Hct 25.9 L MCV 73 L MCH 23 L MCHC RDW 18.9 H Plt Count Lymph % (Auto) [place] % (Auto) Lymph # [place] # Baso # Seg Neutrophils % Seg Neuts % (Manual) 88.5 H Lymphocytes % (Manual) 4.5 L Monocytes % (Manual) Eosinophils % (Manual) Basophils % (Manual) Nucleated RBC % Seg Neutrophils # Seg Neutrophils # Man 28.1 H Lymphocytes # (Manual) Monocytes # (Manual) 1.0 H Eosinophils # (Manual) Basophils # (Manual) PT INR Fibrinogen dRVVT Confirm Interp Factor V Activity POC ABG pH POC ABG pCO2 POC ABG pO2 ABG pO2 ABG HCO3 ABG Base Excess ABG Hemoglobin Oxyhemoglobin Sodium Potassium Chloride Carbon Dioxide 20 L BUN 115 H Creatinine 2.7 H Glucose 165 H POC Glucose Lactic Acid Calcium 8.0 L Phosphorus Magnesium Direct Bilirubin AST ALT Alkaline Phosphatase Lactate Dehydrogenase Troponin T C-Reactive Protein Total Protein Albumin Prealbumin Triglycerides 217 H Cholesterol LDL Cholesterol Direct HDL Cholesterol Urine pH Urine WBC (Auto) Urine Creatinine Urine Total Protein Fluid Total Protein Vancomycin Trough Rheumatoid Factor Complement C4 Miscellaneous Test Crossmatch 09/12/16 09/12/16 09/12/16 07:22 09:59 12:21 WBC RBC Hgb Hct MCV MCH MCHC RDW Plt Count Lymph % (Auto) [place] % (Auto) Lymph # [place] # Baso # Seg Neutrophils % Seg Neuts % (Manual) Lymphocytes % (Manual) Monocytes % (Manual) Eosinophils % (Manual) Basophils % (Manual) Nucleated RBC % Seg Neutrophils # Seg Neutrophils # Man Lymphocytes # (Manual) Monocytes # (Manual) Eosinophils # (Manual) Basophils # (Manual) PT INR Fibrinogen dRVVT Confirm Interp Positive H Factor V Activity POC ABG pH POC ABG pCO2 POC ABG pO2 ABG pO2 ABG HCO3 ABG Base Excess ABG Hemoglobin Oxyhemoglobin Sodium Potassium Chloride Carbon Dioxide BUN Creatinine Glucose POC Glucose 224 H Lactic Acid Calcium Phosphorus Magnesium Direct Bilirubin AST ALT Alkaline Phosphatase Lactate Dehydrogenase Troponin T C-Reactive Protein 1.70 H Total Protein Albumin Prealbumin Triglycerides Cholesterol LDL Cholesterol Direct HDL Cholesterol Urine pH Urine WBC (Auto) Urine Creatinine Urine Total Protein Fluid Total Protein Vancomycin Trough Rheumatoid Factor Complement C4 Miscellaneous Test Crossmatch 09/12/16 09/12/16 09/13/16 16:51 23:28 04:00 WBC 45.0 H* RBC Hgb 9.4 L Hct MCV 75 L MCH 23 L MCHC RDW 19.0 H Plt Count 470 H Lymph % (Auto) [place] % (Auto) Lymph # [place] # Baso # Seg Neutrophils % Seg Neuts % (Manual) 89.0 H Lymphocytes % (Manual) 5.0 L Monocytes % (Manual) Eosinophils % (Manual) Basophils % (Manual) Nucleated RBC % Seg Neutrophils # Seg Neutrophils # Man 40.1 H Lymphocytes # (Manual) Monocytes # (Manual) Eosinophils # (Manual) Basophils # (Manual) PT INR Fibrinogen dRVVT Confirm Interp Factor V Activity POC ABG pH POC ABG pCO2 POC ABG pO2 ABG pO2 ABG HCO3 ABG Base Excess ABG Hemoglobin Oxyhemoglobin Sodium Potassium Chloride Carbon Dioxide BUN Creatinine Glucose POC Glucose 169 H 150 H Lactic Acid Calcium Phosphorus Magnesium Direct Bilirubin AST ALT Alkaline Phosphatase Lactate Dehydrogenase Troponin T C-Reactive Protein Total Protein Albumin Prealbumin Triglycerides Cholesterol LDL Cholesterol Direct HDL Cholesterol Urine pH Urine WBC (Auto) Urine Creatinine Urine Total Protein Fluid Total Protein Vancomycin Trough Rheumatoid Factor Complement C4 Miscellaneous Test Crossmatch 09/13/16 09/13/16 09/13/16 04:00 11:26 17:31 WBC RBC Hgb Hct MCV MCH MCHC RDW Plt Count Lymph % (Auto) [place] % (Auto) Lymph # [place] # Baso # Seg Neutrophils % Seg Neuts % (Manual) Lymphocytes % (Manual) Monocytes % (Manual) Eosinophils % (Manual) Basophils % (Manual) Nucleated RBC % Seg Neutrophils # Seg Neutrophils # Man Lymphocytes # (Manual) Monocytes # (Manual) Eosinophils # (Manual) Basophils # (Manual) PT INR Fibrinogen dRVVT Confirm Interp Factor V Activity POC ABG pH POC ABG pCO2 POC ABG pO2 ABG pO2 ABG HCO3 ABG Base Excess ABG Hemoglobin Oxyhemoglobin Sodium Potassium Chloride Carbon Dioxide 20 L BUN 116 H Creatinine 3.0 H Glucose 172 H POC Glucose 140 H 183 H Lactic Acid Calcium Phosphorus Magnesium Direct Bilirubin AST ALT Alkaline Phosphatase Lactate Dehydrogenase Troponin T C-Reactive Protein Total Protein 6.2 L Albumin 2.9 L Prealbumin Triglycerides Cholesterol LDL Cholesterol Direct HDL Cholesterol Urine pH Urine WBC (Auto) Urine Creatinine Urine Total Protein Fluid Total Protein Vancomycin Trough Rheumatoid Factor Complement C4 Miscellaneous Test Crossmatch 09/13/16 09/14/16 09/14/16 23:23 04:06 04:07 WBC 29.4 H RBC Hgb 8.9 L Hct 27.3 L MCV 75 L MCH 24 L MCHC RDW 19.1 H Plt Count Lymph % (Auto) [place] % (Auto) Lymph # [place] # Baso # Seg Neutrophils % Seg Neuts % (Manual) 84.0 H Lymphocytes % (Manual) 6.0 L Monocytes % (Manual) 9.0 H Eosinophils % (Manual) Basophils % (Manual) Nucleated RBC % Seg Neutrophils # Seg Neutrophils # Man 24.7 H Lymphocytes # (Manual) Monocytes # (Manual) 2.6 H Eosinophils # (Manual) Basophils # (Manual) PT INR Fibrinogen dRVVT Confirm Interp Factor V Activity POC ABG pH 7.342 L POC ABG pCO2 POC ABG pO2 116 H ABG pO2 ABG HCO3 ABG Base Excess ABG Hemoglobin Oxyhemoglobin Sodium Potassium Chloride Carbon Dioxide BUN Creatinine Glucose POC Glucose 154 H Lactic Acid Calcium Phosphorus Magnesium Direct Bilirubin AST ALT Alkaline Phosphatase Lactate Dehydrogenase Troponin T C-Reactive Protein Total Protein Albumin Prealbumin Triglycerides Cholesterol LDL Cholesterol Direct HDL Cholesterol Urine pH Urine WBC (Auto) Urine Creatinine Urine Total Protein Fluid Total Protein Vancomycin Trough Rheumatoid Factor Complement C4 Miscellaneous Test Crossmatch 09/14/16 09/14/16 09/14/16 04:07 05:29 12:19 WBC RBC Hgb Hct MCV MCH MCHC RDW Plt Count Lymph % (Auto) [place] % (Auto) Lymph # [place] # Baso # Seg Neutrophils % Seg Neuts % (Manual) Lymphocytes % (Manual) Monocytes % (Manual) Eosinophils % (Manual) Basophils % (Manual) Nucleated RBC % Seg Neutrophils # Seg Neutrophils # Man Lymphocytes # (Manual) Monocytes # (Manual) Eosinophils # (Manual) Basophils # (Manual) PT INR Fibrinogen dRVVT Confirm Interp Factor V Activity POC ABG pH POC ABG pCO2 POC ABG pO2 ABG pO2 ABG HCO3 ABG Base Excess ABG Hemoglobin Oxyhemoglobin Sodium 136 L Potassium Chloride Carbon Dioxide 18 L BUN 121 H Creatinine 2.8 H Glucose 214 H POC Glucose 239 H 181 H Lactic Acid Calcium Phosphorus Magnesium Direct Bilirubin AST ALT Alkaline Phosphatase Lactate Dehydrogenase Troponin T C-Reactive Protein Total Protein Albumin Prealbumin Triglycerides Cholesterol LDL Cholesterol Direct HDL Cholesterol Urine pH Urine WBC (Auto) Urine Creatinine Urine Total Protein Fluid Total Protein Vancomycin Trough Rheumatoid Factor Complement C4 Miscellaneous Test Crossmatch 09/14/16 09/14/16 09/15/16 18:12 23:37 05:00 WBC 26.1 H RBC 3.05 L Hgb 7.2 L Hct 22.9 L MCV 75 L MCH 24 L MCHC RDW 19.0 H Plt Count Lymph % (Auto) [place] % (Auto) Lymph # [place] # Baso # Seg Neutrophils % Seg Neuts % (Manual) Lymphocytes % (Manual) Monocytes % (Manual) Eosinophils % (Manual) Basophils % (Manual) Nucleated RBC % Seg Neutrophils # Seg Neutrophils # Man Lymphocytes # (Manual) Monocytes # (Manual) Eosinophils # (Manual) Basophils # (Manual) PT INR Fibrinogen dRVVT Confirm Interp Factor V Activity POC ABG pH POC ABG pCO2 POC ABG pO2 ABG pO2 ABG HCO3 ABG Base Excess ABG Hemoglobin Oxyhemoglobin Sodium Potassium Chloride Carbon Dioxide BUN Creatinine Glucose POC Glucose 266 H 154 H Lactic Acid Calcium Phosphorus Magnesium Direct Bilirubin AST ALT Alkaline Phosphatase Lactate Dehydrogenase Troponin T C-Reactive Protein Total Protein Albumin Prealbumin Triglycerides Cholesterol LDL Cholesterol Direct HDL Cholesterol Urine pH Urine WBC (Auto) Urine Creatinine Urine Total Protein Fluid Total Protein Vancomycin Trough Rheumatoid Factor Complement C4 Miscellaneous Test Crossmatch 09/15/16 09/15/16 09/15/16 05:00 05:17 12:45 WBC RBC Hgb Hct MCV MCH MCHC RDW Plt Count Lymph % (Auto) [place] % (Auto) Lymph # [place] # Baso # Seg Neutrophils % Seg Neuts % (Manual) Lymphocytes % (Manual) Monocytes % (Manual) Eosinophils % (Manual) Basophils % (Manual) Nucleated RBC % Seg Neutrophils # Seg Neutrophils # Man Lymphocytes # (Manual) Monocytes # (Manual) Eosinophils # (Manual) Basophils # (Manual) PT INR Fibrinogen dRVVT Confirm Interp Factor V Activity POC ABG pH POC ABG pCO2 POC ABG pO2 ABG pO2 ABG HCO3 ABG Base Excess ABG Hemoglobin Oxyhemoglobin Sodium Potassium 5.2 H Chloride Carbon Dioxide 18 L BUN 139 H Creatinine 3.7 H Glucose 227 H POC Glucose 226 H 244 H Lactic Acid Calcium 8.3 L Phosphorus Magnesium Direct Bilirubin AST ALT Alkaline Phosphatase Lactate Dehydrogenase Troponin T C-Reactive Protein Total Protein Albumin Prealbumin Triglycerides Cholesterol LDL Cholesterol Direct HDL Cholesterol Urine pH Urine WBC (Auto) Urine Creatinine Urine Total Protein Fluid Total Protein Vancomycin Trough Rheumatoid Factor Complement C4 Miscellaneous Test Crossmatch 09/15/16 09/15/16 09/15/16 14:32 17:33 23:35 WBC RBC Hgb Hct MCV MCH MCHC RDW Plt Count Lymph % (Auto) [place] % (Auto) Lymph # [place] # Baso # Seg Neutrophils % Seg Neuts % (Manual) Lymphocytes % (Manual) Monocytes % (Manual) Eosinophils % (Manual) Basophils % (Manual) Nucleated RBC % Seg Neutrophils # Seg Neutrophils # Man Lymphocytes # (Manual) Monocytes # (Manual) Eosinophils # (Manual) Basophils # (Manual) PT INR Fibrinogen dRVVT Confirm Interp Factor V Activity POC ABG pH POC ABG pCO2 27.7 L POC ABG pO2 120 H ABG pO2 ABG HCO3 ABG Base Excess ABG Hemoglobin Oxyhemoglobin Sodium Potassium Chloride Carbon Dioxide BUN Creatinine Glucose POC Glucose 232 H 167 H Lactic Acid Calcium Phosphorus Magnesium Direct Bilirubin AST ALT Alkaline Phosphatase Lactate Dehydrogenase Troponin T C-Reactive Protein Total Protein Albumin Prealbumin Triglycerides Cholesterol LDL Cholesterol Direct HDL Cholesterol Urine pH Urine WBC (Auto) Urine Creatinine Urine Total Protein Fluid Total Protein Vancomycin Trough Rheumatoid Factor Complement C4 Miscellaneous Test Crossmatch 09/16/16 09/16/16 09/16/16 03:58 10:27 10:27 WBC 19.0 H RBC 2.77 L Hgb 6.5 L Hct 20.9 L MCV 76 L MCH 23 L MCHC RDW 19.3 H Plt Count Lymph % (Auto) 11.0 L [place] % (Auto) Lymph # [place] # 1.1 H Baso # Seg Neutrophils % 82.5 H Seg Neuts % (Manual) Lymphocytes % (Manual) Monocytes % (Manual) Eosinophils % (Manual) Basophils % (Manual) Nucleated RBC % Seg Neutrophils # 15.7 H Seg Neutrophils # Man Lymphocytes # (Manual) Monocytes # (Manual) Eosinophils # (Manual) Basophils # (Manual) PT INR Fibrinogen dRVVT Confirm Interp Factor V Activity POC ABG pH POC ABG pCO2 POC ABG pO2 ABG pO2 ABG HCO3 ABG Base Excess ABG Hemoglobin Oxyhemoglobin Sodium Potassium Chloride 109.3 H Carbon Dioxide 18 L BUN 139 H Creatinine 4.1 H Glucose 144 H POC Glucose 146 H Lactic Acid Calcium 8.1 L Phosphorus Magnesium Direct Bilirubin AST ALT Alkaline Phosphatase Lactate Dehydrogenase Troponin T C-Reactive Protein Total Protein Albumin Prealbumin Triglycerides Cholesterol LDL Cholesterol Direct HDL Cholesterol Urine pH Urine WBC (Auto) Urine Creatinine Urine Total Protein Fluid Total Protein Vancomycin Trough Rheumatoid Factor Complement C4 Miscellaneous Test Crossmatch 09/16/16 09/16/16 09/16/16 12:04 12:10 13:55 WBC RBC Hgb Hct MCV MCH MCHC RDW Plt Count Lymph % (Auto) [place] % (Auto) Lymph # [place] # Baso # Seg Neutrophils % Seg Neuts % (Manual) Lymphocytes % (Manual) Monocytes % (Manual) Eosinophils % (Manual) Basophils % (Manual) Nucleated RBC % Seg Neutrophils # Seg Neutrophils # Man Lymphocytes # (Manual) Monocytes # (Manual) Eosinophils # (Manual) Basophils # (Manual) PT INR Fibrinogen dRVVT Confirm Interp Factor V Activity POC ABG pH POC ABG pCO2 32.9 L POC ABG pO2 ABG pO2 ABG HCO3 ABG Base Excess ABG Hemoglobin Oxyhemoglobin Sodium Potassium Chloride Carbon Dioxide BUN Creatinine Glucose POC Glucose 185 H Lactic Acid Calcium Phosphorus Magnesium Direct Bilirubin AST ALT Alkaline Phosphatase Lactate Dehydrogenase Troponin T C-Reactive Protein Total Protein Albumin Prealbumin Triglycerides Cholesterol LDL Cholesterol Direct HDL Cholesterol Urine pH Urine WBC (Auto) Urine Creatinine Urine Total Protein Fluid Total Protein Vancomycin Trough Rheumatoid Factor Complement C4 Miscellaneous Test Crossmatch See Detail 09/16/16 09/16/16 09/16/16 17:55 19:19 23:48 WBC RBC Hgb Hct MCV MCH MCHC RDW Plt Count Lymph % (Auto) [place] % (Auto) Lymph # [place] # Baso # Seg Neutrophils % Seg Neuts % (Manual) Lymphocytes % (Manual) Monocytes % (Manual) Eosinophils % (Manual) Basophils % (Manual) Nucleated RBC % Seg Neutrophils # Seg Neutrophils # Man Lymphocytes # (Manual) Monocytes # (Manual) Eosinophils # (Manual) Basophils # (Manual) PT INR Fibrinogen dRVVT Confirm Interp Factor V Activity POC ABG pH POC ABG pCO2 POC ABG pO2 ABG pO2 ABG HCO3 ABG Base Excess ABG Hemoglobin Oxyhemoglobin Sodium Potassium Chloride Carbon Dioxide BUN Creatinine Glucose POC Glucose 222 H 107 H Lactic Acid Calcium Phosphorus Magnesium Direct Bilirubin AST ALT Alkaline Phosphatase Lactate Dehydrogenase Troponin T C-Reactive Protein Total Protein Albumin Prealbumin Triglycerides Cholesterol LDL Cholesterol Direct HDL Cholesterol Urine pH Urine WBC (Auto) Urine Creatinine 47.4 H Urine Total Protein 16 H Fluid Total Protein Vancomycin Trough Rheumatoid Factor Complement C4 Miscellaneous Test Crossmatch 09/17/16 09/17/16 09/17/16 03:45 03:45 04:55 WBC 19.6 H RBC 3.41 L Hgb 8.5 L Hct 26.7 L MCV 78 L MCH 25 L MCHC RDW 19.9 H Plt Count Lymph % (Auto) 9.3 L [place] % (Auto) Lymph # [place] # 1.2 H Baso # Seg Neutrophils % 83.9 H Seg Neuts % (Manual) Lymphocytes % (Manual) Monocytes % (Manual) Eosinophils % (Manual) Basophils % (Manual) Nucleated RBC % Seg Neutrophils # 16.4 H Seg Neutrophils # Man Lymphocytes # (Manual) Monocytes # (Manual) Eosinophils # (Manual) Basophils # (Manual) PT INR Fibrinogen dRVVT Confirm Interp Factor V Activity POC ABG pH POC ABG pCO2 POC ABG pO2 ABG pO2 ABG HCO3 ABG Base Excess ABG Hemoglobin Oxyhemoglobin Sodium 146 H Potassium 5.1 H Chloride 110.9 H Carbon Dioxide 16 L BUN 146 H Creatinine 4.0 H Glucose 108 H POC Glucose 133 H Lactic Acid Calcium Phosphorus Magnesium 3.00 H Direct Bilirubin AST ALT Alkaline Phosphatase Lactate Dehydrogenase Troponin T C-Reactive Protein Total Protein Albumin Prealbumin Triglycerides Cholesterol LDL Cholesterol Direct HDL Cholesterol Urine pH Urine WBC (Auto) Urine Creatinine Urine Total Protein Fluid Total Protein Vancomycin Trough Rheumatoid Factor Complement C4 Miscellaneous Test Crossmatch 09/17/16 09/17/16 09/17/16 11:15 17:33 23:47 WBC RBC Hgb Hct MCV MCH MCHC RDW Plt Count Lymph % (Auto) [place] % (Auto) Lymph # [place] # Baso # Seg Neutrophils % Seg Neuts % (Manual) Lymphocytes % (Manual) Monocytes % (Manual) Eosinophils % (Manual) Basophils % (Manual) Nucleated RBC % Seg Neutrophils # Seg Neutrophils # Man Lymphocytes # (Manual) Monocytes # (Manual) Eosinophils # (Manual) Basophils # (Manual) PT INR Fibrinogen dRVVT Confirm Interp Factor V Activity POC ABG pH POC ABG pCO2 POC ABG pO2 ABG pO2 ABG HCO3 ABG Base Excess ABG Hemoglobin Oxyhemoglobin Sodium Potassium Chloride Carbon Dioxide BUN Creatinine Glucose POC Glucose 176 H 246 H 148 H Lactic Acid Calcium Phosphorus Magnesium Direct Bilirubin AST ALT Alkaline Phosphatase Lactate Dehydrogenase Troponin T C-Reactive Protein Total Protein Albumin Prealbumin Triglycerides Cholesterol LDL Cholesterol Direct HDL Cholesterol Urine pH Urine WBC (Auto) Urine Creatinine Urine Total Protein Fluid Total Protein Vancomycin Trough Rheumatoid Factor Complement C4 Miscellaneous Test Crossmatch 09/18/16 09/18/16 09/18/16 05:33 08:31 08:31 WBC 18.0 H RBC 3.17 L Hgb 9.0 L Hct 25.7 L MCV MCH MCHC 35 H RDW 20.4 H Plt Count Lymph % (Auto) [place] % (Auto) Lymph # [place] # Baso # Seg Neutrophils % Seg Neuts % (Manual) Lymphocytes % (Manual) Monocytes % (Manual) Eosinophils % (Manual) Basophils % (Manual) Nucleated RBC % Seg Neutrophils # Seg Neutrophils # Man Lymphocytes # (Manual) Monocytes # (Manual) Eosinophils # (Manual) Basophils # (Manual) PT INR Fibrinogen dRVVT Confirm Interp Factor V Activity POC ABG pH POC ABG pCO2 POC ABG pO2 ABG pO2 ABG HCO3 ABG Base Excess ABG Hemoglobin Oxyhemoglobin Sodium Potassium Chloride Carbon Dioxide 15 L BUN 124 H Creatinine 3.8 H Glucose POC Glucose 120 H Lactic Acid Calcium 8.1 L Phosphorus Magnesium Direct Bilirubin AST ALT Alkaline Phosphatase Lactate Dehydrogenase Troponin T C-Reactive Protein Total Protein Albumin Prealbumin Triglycerides Cholesterol LDL Cholesterol Direct HDL Cholesterol Urine pH Urine WBC (Auto) Urine Creatinine Urine Total Protein Fluid Total Protein Vancomycin Trough Rheumatoid Factor Complement C4 Miscellaneous Test Crossmatch 09/18/16 09/18/16 09/18/16 12:03 15:34 17:50 WBC RBC Hgb Hct MCV MCH MCHC RDW Plt Count Lymph % (Auto) [place] % (Auto) Lymph # [place] # Baso # Seg Neutrophils % Seg Neuts % (Manual) Lymphocytes % (Manual) Monocytes % (Manual) Eosinophils % (Manual) Basophils % (Manual) Nucleated RBC % Seg Neutrophils # Seg Neutrophils # Man Lymphocytes # (Manual) Monocytes # (Manual) Eosinophils # (Manual) Basophils # (Manual) PT INR Fibrinogen dRVVT Confirm Interp Factor V Activity POC ABG pH POC ABG pCO2 25.7 L POC ABG pO2 66 L ABG pO2 ABG HCO3 ABG Base Excess ABG Hemoglobin Oxyhemoglobin Sodium Potassium Chloride Carbon Dioxide BUN Creatinine Glucose POC Glucose 156 H 220 H Lactic Acid Calcium Phosphorus Magnesium Direct Bilirubin AST ALT Alkaline Phosphatase Lactate Dehydrogenase Troponin T C-Reactive Protein Total Protein Albumin Prealbumin Triglycerides Cholesterol LDL Cholesterol Direct HDL Cholesterol Urine pH Urine WBC (Auto) Urine Creatinine Urine Total Protein Fluid Total Protein Vancomycin Trough Rheumatoid Factor Complement C4 Miscellaneous Test Crossmatch 09/19/16 09/19/16 09/19/16 06:21 09:50 09:50 WBC 17.1 H RBC 3.49 L Hgb 9.0 L Hct 28.1 L MCV MCH 26 L MCHC RDW 20.8 H Plt Count Lymph % (Auto) 11.5 L [place] % (Auto) 7.5 H Lymph # [place] # 1.3 H Baso # Seg Neutrophils % 79.8 H Seg Neuts % (Manual) Lymphocytes % (Manual) Monocytes % (Manual) Eosinophils % (Manual) Basophils % (Manual) Nucleated RBC % Seg Neutrophils # 13.7 H Seg Neutrophils # Man Lymphocytes # (Manual) Monocytes # (Manual) Eosinophils # (Manual) Basophils # (Manual) PT INR Fibrinogen dRVVT Confirm Interp Factor V Activity POC ABG pH POC ABG pCO2 POC ABG pO2 ABG pO2 ABG HCO3 ABG Base Excess ABG Hemoglobin Oxyhemoglobin Sodium Potassium Chloride 108.6 H Carbon Dioxide 15 L BUN 125 H Creatinine 4.1 H Glucose 124 H POC Glucose 119 H Lactic Acid Calcium Phosphorus Magnesium Direct Bilirubin AST ALT Alkaline Phosphatase Lactate Dehydrogenase Troponin T C-Reactive Protein Total Protein Albumin Prealbumin Triglycerides Cholesterol LDL Cholesterol Direct HDL Cholesterol Urine pH Urine WBC (Auto) Urine Creatinine Urine Total Protein Fluid Total Protein Vancomycin Trough Rheumatoid Factor Complement C4 Miscellaneous Test Crossmatch 09/19/16 09/19/16 09/19/16 11:25 17:53 23:36 WBC RBC Hgb Hct MCV MCH MCHC RDW Plt Count Lymph % (Auto) [place] % (Auto) Lymph # [place] # Baso # Seg Neutrophils % Seg Neuts % (Manual) Lymphocytes % (Manual) Monocytes % (Manual) Eosinophils % (Manual) Basophils % (Manual) Nucleated RBC % Seg Neutrophils # Seg Neutrophils # Man Lymphocytes # (Manual) Monocytes # (Manual) Eosinophils # (Manual) Basophils # (Manual) PT INR Fibrinogen dRVVT Confirm Interp Factor V Activity POC ABG pH POC ABG pCO2 POC ABG pO2 ABG pO2 ABG HCO3 ABG Base Excess ABG Hemoglobin Oxyhemoglobin Sodium Potassium Chloride Carbon Dioxide BUN Creatinine Glucose POC Glucose 160 H 245 H 121 H Lactic Acid Calcium Phosphorus Magnesium Direct Bilirubin AST ALT Alkaline Phosphatase Lactate Dehydrogenase Troponin T C-Reactive Protein Total Protein Albumin Prealbumin Triglycerides Cholesterol LDL Cholesterol Direct HDL Cholesterol Urine pH Urine WBC (Auto) Urine Creatinine Urine Total Protein Fluid Total Protein Vancomycin Trough Rheumatoid Factor Complement C4 Miscellaneous Test Crossmatch 09/20/16 09/20/16 09/20/16 04:10 04:10 04:10 WBC 17.0 H RBC 3.21 L Hgb 8.2 L Hct 25.5 L MCV MCH 26 L MCHC RDW 20.9 H Plt Count Lymph % (Auto) [place] % (Auto) Lymph # [place] # Baso # Seg Neutrophils % Seg Neuts % (Manual) Lymphocytes % (Manual) Monocytes % (Manual) Eosinophils % (Manual) Basophils % (Manual) Nucleated RBC % Seg Neutrophils # Seg Neutrophils # Man Lymphocytes # (Manual) Monocytes # (Manual) Eosinophils # (Manual) Basophils # (Manual) PT INR Fibrinogen dRVVT Confirm Interp Factor V Activity POC ABG pH POC ABG pCO2 POC ABG pO2 ABG pO2 ABG HCO3 ABG Base Excess ABG Hemoglobin Oxyhemoglobin Sodium Potassium Chloride 111.0 H Carbon Dioxide 16 L BUN 129 H Creatinine 3.7 H Glucose 115 H POC Glucose Lactic Acid Calcium 8.2 L Phosphorus Magnesium Direct Bilirubin AST ALT Alkaline Phosphatase Lactate Dehydrogenase Troponin T C-Reactive Protein Total Protein Albumin Prealbumin Triglycerides 243 H Cholesterol LDL Cholesterol Direct HDL Cholesterol Urine pH Urine WBC (Auto) Urine Creatinine Urine Total Protein Fluid Total Protein Vancomycin Trough Rheumatoid Factor Complement C4 Miscellaneous Test Crossmatch 09/20/16 09/20/16 09/20/16 05:40 11:52 16:50 WBC RBC Hgb Hct MCV MCH MCHC RDW Plt Count Lymph % (Auto) [place] % (Auto) Lymph # [place] # Baso # Seg Neutrophils % Seg Neuts % (Manual) Lymphocytes % (Manual) Monocytes % (Manual) Eosinophils % (Manual) Basophils % (Manual) Nucleated RBC % Seg Neutrophils # Seg Neutrophils # Man Lymphocytes # (Manual) Monocytes # (Manual) Eosinophils # (Manual) Basophils # (Manual) PT INR Fibrinogen dRVVT Confirm Interp Factor V Activity POC ABG pH POC ABG pCO2 POC ABG pO2 ABG pO2 ABG HCO3 ABG Base Excess ABG Hemoglobin Oxyhemoglobin Sodium Potassium Chloride Carbon Dioxide BUN Creatinine Glucose POC Glucose 131 H 183 H 236 H Lactic Acid Calcium Phosphorus Magnesium Direct Bilirubin AST ALT Alkaline Phosphatase Lactate Dehydrogenase Troponin T C-Reactive Protein Total Protein Albumin Prealbumin Triglycerides Cholesterol LDL Cholesterol Direct HDL Cholesterol Urine pH Urine WBC (Auto) Urine Creatinine Urine Total Protein Fluid Total Protein Vancomycin Trough Rheumatoid Factor Complement C4 Miscellaneous Test Crossmatch 09/20/16 09/21/16 09/21/16 23:51 03:30 04:44 WBC RBC Hgb Hct MCV MCH MCHC RDW Plt Count Lymph % (Auto) [place] % (Auto) Lymph # [place] # Baso # Seg Neutrophils % Seg Neuts % (Manual) Lymphocytes % (Manual) Monocytes % (Manual) Eosinophils % (Manual) Basophils % (Manual) Nucleated RBC % Seg Neutrophils # Seg Neutrophils # Man Lymphocytes # (Manual) Monocytes # (Manual) Eosinophils # (Manual) Basophils # (Manual) PT INR Fibrinogen dRVVT Confirm Interp Factor V Activity POC ABG pH POC ABG pCO2 POC ABG pO2 ABG pO2 ABG HCO3 ABG Base Excess ABG Hemoglobin Oxyhemoglobin Sodium Potassium Chloride Carbon Dioxide BUN Creatinine Glucose POC Glucose 114 H 141 H Lactic Acid Calcium Phosphorus Magnesium 2.70 H Direct Bilirubin AST ALT Alkaline Phosphatase Lactate Dehydrogenase Troponin T C-Reactive Protein Total Protein Albumin Prealbumin Triglycerides Cholesterol LDL Cholesterol Direct HDL Cholesterol Urine pH Urine WBC (Auto) Urine Creatinine Urine Total Protein Fluid Total Protein Vancomycin Trough Rheumatoid Factor Complement C4 Miscellaneous Test Crossmatch 09/21/16 09/21/16 09/21/16 07:45 07:45 10:01 WBC 13.8 H RBC 2.94 L Hgb 7.5 L Hct 23.5 L MCV MCH 26 L MCHC RDW 21.2 H Plt Count Lymph % (Auto) 6.9 L [place] % (Auto) 9.4 H Lymph # 0.9 L [place] # 1.3 H Baso # Seg Neutrophils % 83.2 H Seg Neuts % (Manual) Lymphocytes % (Manual) Monocytes % (Manual) Eosinophils % (Manual) Basophils % (Manual) Nucleated RBC % Seg Neutrophils # 11.5 H Seg Neutrophils # Man Lymphocytes # (Manual) Monocytes # (Manual) Eosinophils # (Manual) Basophils # (Manual) PT INR Fibrinogen dRVVT Confirm Interp Factor V Activity POC ABG pH 7.308 L POC ABG pCO2 31.9 L POC ABG pO2 148 H ABG pO2 ABG HCO3 ABG Base Excess ABG Hemoglobin Oxyhemoglobin Sodium 147 H Potassium Chloride 114.2 H Carbon Dioxide 15 L BUN 120 H Creatinine 3.9 H Glucose 156 H POC Glucose Lactic Acid Calcium 8.2 L Phosphorus Magnesium Direct Bilirubin AST ALT Alkaline Phosphatase Lactate Dehydrogenase Troponin T C-Reactive Protein Total Protein Albumin Prealbumin Triglycerides Cholesterol LDL Cholesterol Direct HDL Cholesterol Urine pH Urine WBC (Auto) Urine Creatinine Urine Total Protein Fluid Total Protein Vancomycin Trough Rheumatoid Factor Complement C4 Miscellaneous Test Crossmatch 09/21/16 09/21/16 09/21/16 12:00 12:03 13:00 WBC RBC Hgb Hct MCV MCH MCHC RDW Plt Count Lymph % (Auto) [place] % (Auto) Lymph # [place] # Baso # Seg Neutrophils % Seg Neuts % (Manual) Lymphocytes % (Manual) Monocytes % (Manual) Eosinophils % (Manual) Basophils % (Manual) Nucleated RBC % Seg Neutrophils # Seg Neutrophils # Man Lymphocytes # (Manual) Monocytes # (Manual) Eosinophils # (Manual) Basophils # (Manual) PT INR Fibrinogen dRVVT Confirm Interp Factor V Activity POC ABG pH POC ABG pCO2 POC ABG pO2 ABG pO2 ABG HCO3 ABG Base Excess ABG Hemoglobin Oxyhemoglobin Sodium Potassium Chloride Carbon Dioxide BUN Creatinine Glucose POC Glucose 163 H Lactic Acid Calcium Phosphorus Magnesium Direct Bilirubin AST ALT Alkaline Phosphatase Lactate Dehydrogenase Troponin T C-Reactive Protein Total Protein Albumin Prealbumin Triglycerides Cholesterol LDL Cholesterol Direct HDL Cholesterol Urine pH Urine WBC (Auto) Urine Creatinine 54.8 H Urine Total Protein Fluid Total Protein Vancomycin Trough 2.3 L Rheumatoid Factor Complement C4 Miscellaneous Test Crossmatch 09/21/16 09/21/16 09/22/16 16:51 23:17 06:27 WBC RBC Hgb Hct MCV MCH MCHC RDW Plt Count Lymph % (Auto) [place] % (Auto) Lymph # [place] # Baso # Seg Neutrophils % Seg Neuts % (Manual) Lymphocytes % (Manual) Monocytes % (Manual) Eosinophils % (Manual) Basophils % (Manual) Nucleated RBC % Seg Neutrophils # Seg Neutrophils # Man Lymphocytes # (Manual) Monocytes # (Manual) Eosinophils # (Manual) Basophils # (Manual) PT INR Fibrinogen dRVVT Confirm Interp Factor V Activity POC ABG pH POC ABG pCO2 POC ABG pO2 ABG pO2 ABG HCO3 ABG Base Excess ABG Hemoglobin Oxyhemoglobin Sodium Potassium Chloride Carbon Dioxide BUN Creatinine Glucose POC Glucose 206 H 114 H 115 H Lactic Acid Calcium Phosphorus Magnesium Direct Bilirubin AST ALT Alkaline Phosphatase Lactate Dehydrogenase Troponin T C-Reactive Protein Total Protein Albumin Prealbumin Triglycerides Cholesterol LDL Cholesterol Direct HDL Cholesterol Urine pH Urine WBC (Auto) Urine Creatinine Urine Total Protein Fluid Total Protein Vancomycin Trough Rheumatoid Factor Complement C4 Miscellaneous Test Crossmatch 09/22/16 09/22/16 09/22/16 07:50 07:50 12:00 WBC 17.8 H RBC 3.04 L Hgb 8.0 L Hct 24.7 L MCV MCH 26 L MCHC RDW 21.6 H Plt Count Lymph % (Auto) [place] % (Auto) Lymph # [place] # Baso # Seg Neutrophils % Seg Neuts % (Manual) Lymphocytes % (Manual) Monocytes % (Manual) Eosinophils % (Manual) Basophils % (Manual) Nucleated RBC % Seg Neutrophils # Seg Neutrophils # Man Lymphocytes # (Manual) Monocytes # (Manual) Eosinophils # (Manual) Basophils # (Manual) PT INR Fibrinogen dRVVT Confirm Interp Factor V Activity POC ABG pH POC ABG pCO2 POC ABG pO2 ABG pO2 ABG HCO3 ABG Base Excess ABG Hemoglobin Oxyhemoglobin Sodium 150 H Potassium Chloride 118.2 H Carbon Dioxide 14 L BUN 111 H Creatinine 3.7 H Glucose 157 H POC Glucose 183 H Lactic Acid Calcium Phosphorus Magnesium Direct Bilirubin AST ALT Alkaline Phosphatase Lactate Dehydrogenase Troponin T C-Reactive Protein Total Protein Albumin Prealbumin Triglycerides Cholesterol LDL Cholesterol Direct HDL Cholesterol Urine pH Urine WBC (Auto) Urine Creatinine Urine Total Protein Fluid Total Protein Vancomycin Trough Rheumatoid Factor Complement C4 Miscellaneous Test Crossmatch 09/22/16 09/22/16 09/23/16 17:29 23:10 05:00 WBC 19.2 H RBC 3.13 L Hgb 8.0 L Hct 25.2 L MCV MCH 26 L MCHC RDW 22.1 H Plt Count Lymph % (Auto) [place] % (Auto) Lymph # [place] # Baso # Seg Neutrophils % Seg Neuts % (Manual) 92.0 H Lymphocytes % (Manual) 3.0 L Monocytes % (Manual) Eosinophils % (Manual) Basophils % (Manual) Nucleated RBC % Seg Neutrophils # Seg Neutrophils # Man 17.7 H Lymphocytes # (Manual) 0.6 L Monocytes # (Manual) Eosinophils # (Manual) Basophils # (Manual) PT INR Fibrinogen dRVVT Confirm Interp Factor V Activity POC ABG pH POC ABG pCO2 POC ABG pO2 ABG pO2 ABG HCO3 ABG Base Excess ABG Hemoglobin Oxyhemoglobin Sodium Potassium Chloride Carbon Dioxide BUN Creatinine Glucose POC Glucose 197 H 169 H Lactic Acid Calcium Phosphorus Magnesium Direct Bilirubin AST ALT Alkaline Phosphatase Lactate Dehydrogenase Troponin T C-Reactive Protein Total Protein Albumin Prealbumin Triglycerides Cholesterol LDL Cholesterol Direct HDL Cholesterol Urine pH Urine WBC (Auto) Urine Creatinine Urine Total Protein Fluid Total Protein Vancomycin Trough Rheumatoid Factor Complement C4 Miscellaneous Test Crossmatch 09/23/16 09/23/16 09/23/16 05:00 05:00 05:10 WBC RBC Hgb Hct MCV MCH MCHC RDW Plt Count Lymph % (Auto) [place] % (Auto) Lymph # [place] # Baso # Seg Neutrophils % Seg Neuts % (Manual) Lymphocytes % (Manual) Monocytes % (Manual) Eosinophils % (Manual) Basophils % (Manual) Nucleated RBC % Seg Neutrophils # Seg Neutrophils # Man Lymphocytes # (Manual) Monocytes # (Manual) Eosinophils # (Manual) Basophils # (Manual) PT INR Fibrinogen dRVVT Confirm Interp Factor V Activity POC ABG pH POC ABG pCO2 POC ABG pO2 ABG pO2 ABG HCO3 ABG Base Excess ABG Hemoglobin Oxyhemoglobin Sodium 147 H Potassium 3.2 L Chloride 115.7 H Carbon Dioxide 13 L BUN 111 H Creatinine 3.8 H Glucose 194 H POC Glucose 188 H Lactic Acid Calcium 7.3 L D Phosphorus Magnesium Direct Bilirubin AST ALT Alkaline Phosphatase Lactate Dehydrogenase Troponin T C-Reactive Protein 3.20 H Total Protein Albumin Prealbumin Triglycerides Cholesterol LDL Cholesterol Direct HDL Cholesterol Urine pH Urine WBC (Auto) Urine Creatinine Urine Total Protein Fluid Total Protein Vancomycin Trough Rheumatoid Factor Complement C4 Miscellaneous Test Crossmatch 09/23/16 09/23/16 09/23/16 11:37 12:29 18:01 WBC RBC Hgb Hct MCV MCH MCHC RDW Plt Count Lymph % (Auto) [place] % (Auto) Lymph # [place] # Baso # Seg Neutrophils % Seg Neuts % (Manual) Lymphocytes % (Manual) Monocytes % (Manual) Eosinophils % (Manual) Basophils % (Manual) Nucleated RBC % Seg Neutrophils # Seg Neutrophils # Man Lymphocytes # (Manual) Monocytes # (Manual) Eosinophils # (Manual) Basophils # (Manual) PT INR Fibrinogen dRVVT Confirm Interp Factor V Activity POC ABG pH POC ABG pCO2 18.9 L POC ABG pO2 143 H ABG pO2 ABG HCO3 ABG Base Excess ABG Hemoglobin Oxyhemoglobin Sodium Potassium Chloride Carbon Dioxide BUN Creatinine Glucose POC Glucose 153 H 108 H Lactic Acid Calcium Phosphorus Magnesium Direct Bilirubin AST ALT Alkaline Phosphatase Lactate Dehydrogenase Troponin T C-Reactive Protein Total Protein Albumin Prealbumin Triglycerides Cholesterol LDL Cholesterol Direct HDL Cholesterol Urine pH Urine WBC (Auto) Urine Creatinine Urine Total Protein Fluid Total Protein Vancomycin Trough Rheumatoid Factor Complement C4 Miscellaneous Test Crossmatch 09/23/16 09/23/16 09/24/16 21:19 23:43 05:16 WBC RBC Hgb Hct MCV MCH MCHC RDW Plt Count Lymph % (Auto) [place] % (Auto) Lymph # [place] # Baso # Seg Neutrophils % Seg Neuts % (Manual) Lymphocytes % (Manual) Monocytes % (Manual) Eosinophils % (Manual) Basophils % (Manual) Nucleated RBC % Seg Neutrophils # Seg Neutrophils # Man Lymphocytes # (Manual) Monocytes # (Manual) Eosinophils # (Manual) Basophils # (Manual) PT INR Fibrinogen dRVVT Confirm Interp Factor V Activity POC ABG pH POC ABG pCO2 17.3 L POC ABG pO2 112 H ABG pO2 ABG HCO3 ABG Base Excess ABG Hemoglobin Oxyhemoglobin Sodium Potassium Chloride Carbon Dioxide BUN Creatinine Glucose POC Glucose 143 H 164 H Lactic Acid Calcium Phosphorus Magnesium Direct Bilirubin AST ALT Alkaline Phosphatase Lactate Dehydrogenase Troponin T C-Reactive Protein Total Protein Albumin Prealbumin Triglycerides Cholesterol LDL Cholesterol Direct HDL Cholesterol Urine pH Urine WBC (Auto) Urine Creatinine Urine Total Protein Fluid Total Protein Vancomycin Trough Rheumatoid Factor Complement C4 Miscellaneous Test Crossmatch 09/24/16 09/24/16 09/24/16 05:21 11:58 17:06 WBC RBC Hgb Hct MCV MCH MCHC RDW Plt Count Lymph % (Auto) [place] % (Auto) Lymph # [place] # Baso # Seg Neutrophils % Seg Neuts % (Manual) Lymphocytes % (Manual) Monocytes % (Manual) Eosinophils % (Manual) Basophils % (Manual) Nucleated RBC % Seg Neutrophils # Seg Neutrophils # Man Lymphocytes # (Manual) Monocytes # (Manual) Eosinophils # (Manual) Basophils # (Manual) PT INR Fibrinogen dRVVT Confirm Interp Factor V Activity POC ABG pH POC ABG pCO2 POC ABG pO2 ABG pO2 ABG HCO3 ABG Base Excess ABG Hemoglobin Oxyhemoglobin Sodium Potassium Chloride Carbon Dioxide 10 L BUN 103 H Creatinine 4.3 H Glucose 163 H POC Glucose 173 H 167 H Lactic Acid Calcium 6.5 L Phosphorus Magnesium Direct Bilirubin AST ALT Alkaline Phosphatase Lactate Dehydrogenase Troponin T C-Reactive Protein Total Protein Albumin Prealbumin Triglycerides Cholesterol LDL Cholesterol Direct HDL Cholesterol Urine pH Urine WBC (Auto) Urine Creatinine Urine Total Protein Fluid Total Protein Vancomycin Trough Rheumatoid Factor Complement C4 Miscellaneous Test Crossmatch 09/24/16 09/24/16 09/24/16 20:15 21:02 23:48 WBC RBC Hgb Hct MCV MCH MCHC RDW Plt Count Lymph % (Auto) [place] % (Auto) Lymph # [place] # Baso # Seg Neutrophils % Seg Neuts % (Manual) Lymphocytes % (Manual) Monocytes % (Manual) Eosinophils % (Manual) Basophils % (Manual) Nucleated RBC % Seg Neutrophils # Seg Neutrophils # Man Lymphocytes # (Manual) Monocytes # (Manual) Eosinophils # (Manual) Basophils # (Manual) PT INR Fibrinogen dRVVT Confirm Interp Factor V Activity POC ABG pH 7.288 L POC ABG pCO2 30.2 L 21.5 L POC ABG pO2 32 L 39 L ABG pO2 ABG HCO3 ABG Base Excess ABG Hemoglobin Oxyhemoglobin Sodium Potassium Chloride Carbon Dioxide BUN Creatinine Glucose POC Glucose 109 H Lactic Acid Calcium Phosphorus Magnesium Direct Bilirubin AST ALT Alkaline Phosphatase Lactate Dehydrogenase Troponin T C-Reactive Protein Total Protein Albumin Prealbumin Triglycerides Cholesterol LDL Cholesterol Direct HDL Cholesterol Urine pH Urine WBC (Auto) Urine Creatinine Urine Total Protein Fluid Total Protein Vancomycin Trough Rheumatoid Factor Complement C4 Miscellaneous Test Crossmatch 09/25/16 09/25/16 09/25/16 04:20 04:20 04:20 WBC RBC 2.58 L Hgb 7.0 L Hct 21.0 L MCV MCH 27 L MCHC RDW 23.8 H Plt Count Lymph % (Auto) [place] % (Auto) Lymph # [place] # Baso # Seg Neutrophils % Seg Neuts % (Manual) Lymphocytes % (Manual) 12.0 L Monocytes % (Manual) Eosinophils % (Manual) 7.0 H Basophils % (Manual) 2.0 H Nucleated RBC % Seg Neutrophils # Seg Neutrophils # Man Lymphocytes # (Manual) 0.9 L Monocytes # (Manual) Eosinophils # (Manual) 0.5 H Basophils # (Manual) PT INR Fibrinogen dRVVT Confirm Interp Factor V Activity POC ABG pH POC ABG pCO2 POC ABG pO2 ABG pO2 ABG HCO3 ABG Base Excess ABG Hemoglobin Oxyhemoglobin Sodium Potassium Chloride Carbon Dioxide 15 L BUN 72 H Creatinine 3.8 H Glucose POC Glucose Lactic Acid Calcium 6.0 L Phosphorus 4.60 H Magnesium 1.60 L Direct Bilirubin AST ALT Alkaline Phosphatase Lactate Dehydrogenase Troponin T C-Reactive Protein Total Protein Albumin Prealbumin Triglycerides Cholesterol LDL Cholesterol Direct HDL Cholesterol Urine pH Urine WBC (Auto) Urine Creatinine Urine Total Protein Fluid Total Protein Vancomycin Trough Rheumatoid Factor Complement C4 Miscellaneous Test Crossmatch 09/25/16 09/25/16 09/25/16 04:57 08:02 10:30 WBC RBC Hgb Hct MCV MCH MCHC RDW Plt Count Lymph % (Auto) [place] % (Auto) Lymph # [place] # Baso # Seg Neutrophils % Seg Neuts % (Manual) Lymphocytes % (Manual) Monocytes % (Manual) Eosinophils % (Manual) Basophils % (Manual) Nucleated RBC % Seg Neutrophils # Seg Neutrophils # Man Lymphocytes # (Manual) Monocytes # (Manual) Eosinophils # (Manual) Basophils # (Manual) PT INR Fibrinogen dRVVT Confirm Interp Factor V Activity POC ABG pH POC ABG pCO2 24.7 L POC ABG pO2 152 H ABG pO2 ABG HCO3 ABG Base Excess ABG Hemoglobin Oxyhemoglobin Sodium Potassium Chloride Carbon Dioxide BUN Creatinine Glucose POC Glucose 113 H Lactic Acid Calcium Phosphorus Magnesium Direct Bilirubin AST ALT Alkaline Phosphatase Lactate Dehydrogenase Troponin T C-Reactive Protein Total Protein Albumin Prealbumin Triglycerides Cholesterol LDL Cholesterol Direct HDL Cholesterol Urine pH Urine WBC (Auto) Urine Creatinine Urine Total Protein Fluid Total Protein Vancomycin Trough Rheumatoid Factor Complement C4 Miscellaneous Test Crossmatch See Detail 09/25/16 09/25/16 09/25/16 12:05 17:44 23:47 WBC RBC Hgb Hct MCV MCH MCHC RDW Plt Count Lymph % (Auto) [place] % (Auto) Lymph # [place] # Baso # Seg Neutrophils % Seg Neuts % (Manual) Lymphocytes % (Manual) Monocytes % (Manual) Eosinophils % (Manual) Basophils % (Manual) Nucleated RBC % Seg Neutrophils # Seg Neutrophils # Man Lymphocytes # (Manual) Monocytes # (Manual) Eosinophils # (Manual) Basophils # (Manual) PT INR Fibrinogen dRVVT Confirm Interp Factor V Activity POC ABG pH POC ABG pCO2 POC ABG pO2 ABG pO2 ABG HCO3 ABG Base Excess ABG Hemoglobin Oxyhemoglobin Sodium Potassium Chloride Carbon Dioxide BUN Creatinine Glucose POC Glucose 117 H 119 H 150 H Lactic Acid Calcium Phosphorus Magnesium Direct Bilirubin AST ALT Alkaline Phosphatase Lactate Dehydrogenase Troponin T C-Reactive Protein Total Protein Albumin Prealbumin Triglycerides Cholesterol LDL Cholesterol Direct HDL Cholesterol Urine pH Urine WBC (Auto) Urine Creatinine Urine Total Protein Fluid Total Protein Vancomycin Trough Rheumatoid Factor Complement C4 Miscellaneous Test Crossmatch 09/26/16 09/26/16 09/26/16 04:25 04:25 04:25 WBC RBC 2.65 L Hgb 7.4 L Hct 21.6 L MCV MCH MCHC RDW 22.5 H Plt Count Lymph % (Auto) [place] % (Auto) Lymph # [place] # Baso # Seg Neutrophils % Seg Neuts % (Manual) Lymphocytes % (Manual) 6.0 L Monocytes % (Manual) Eosinophils % (Manual) 11.0 H Basophils % (Manual) Nucleated RBC % Seg Neutrophils # Seg Neutrophils # Man Lymphocytes # (Manual) 0.4 L Monocytes # (Manual) Eosinophils # (Manual) 0.6 H Basophils # (Manual) PT INR Fibrinogen dRVVT Confirm Interp Factor V Activity POC ABG pH POC ABG pCO2 POC ABG pO2 ABG pO2 ABG HCO3 ABG Base Excess ABG Hemoglobin Oxyhemoglobin Sodium Potassium Chloride 97.0 L Carbon Dioxide 19 L BUN 43 H Creatinine 2.6 H Glucose 130 H POC Glucose Lactic Acid 4.40 H* Calcium 6.7 L Phosphorus Magnesium Direct Bilirubin AST ALT Alkaline Phosphatase Lactate Dehydrogenase Troponin T C-Reactive Protein Total Protein Albumin Prealbumin Triglycerides Cholesterol LDL Cholesterol Direct HDL Cholesterol Urine pH Urine WBC (Auto) Urine Creatinine Urine Total Protein Fluid Total Protein Vancomycin Trough Rheumatoid Factor Complement C4 Miscellaneous Test Crossmatch 09/26/16 09/26/16 09/26/16 05:20 11:44 12:12 WBC RBC Hgb Hct MCV MCH MCHC RDW Plt Count Lymph % (Auto) [place] % (Auto) Lymph # [place] # Baso # Seg Neutrophils % Seg Neuts % (Manual) Lymphocytes % (Manual) Monocytes % (Manual) Eosinophils % (Manual) Basophils % (Manual) Nucleated RBC % Seg Neutrophils # Seg Neutrophils # Man Lymphocytes # (Manual) Monocytes # (Manual) Eosinophils # (Manual) Basophils # (Manual) PT INR Fibrinogen dRVVT Confirm Interp Factor V Activity POC ABG pH POC ABG pCO2 27.0 L POC ABG pO2 69 L ABG pO2 ABG HCO3 ABG Base Excess ABG Hemoglobin Oxyhemoglobin Sodium Potassium Chloride Carbon Dioxide BUN Creatinine Glucose POC Glucose 121 H 128 H Lactic Acid Calcium Phosphorus Magnesium Direct Bilirubin AST ALT Alkaline Phosphatase Lactate Dehydrogenase Troponin T C-Reactive Protein Total Protein Albumin Prealbumin Triglycerides Cholesterol LDL Cholesterol Direct HDL Cholesterol Urine pH Urine WBC (Auto) Urine Creatinine Urine Total Protein Fluid Total Protein Vancomycin Trough Rheumatoid Factor Complement C4 Miscellaneous Test Crossmatch 09/26/16 09/26/16 09/27/16 18:31 23:40 08:20 WBC RBC Hgb Hct MCV MCH MCHC RDW Plt Count Lymph % (Auto) [place] % (Auto) Lymph # [place] # Baso # Seg Neutrophils % Seg Neuts % (Manual) Lymphocytes % (Manual) Monocytes % (Manual) Eosinophils % (Manual) Basophils % (Manual) Nucleated RBC % Seg Neutrophils # Seg Neutrophils # Man Lymphocytes # (Manual) Monocytes # (Manual) Eosinophils # (Manual) Basophils # (Manual) PT INR Fibrinogen dRVVT Confirm Interp Factor V Activity POC ABG pH POC ABG pCO2 POC ABG pO2 ABG pO2 ABG HCO3 ABG Base Excess ABG Hemoglobin Oxyhemoglobin Sodium Potassium Chloride Carbon Dioxide BUN Creatinine Glucose POC Glucose 120 H 133 H Lactic Acid 4.10 H* Calcium Phosphorus Magnesium Direct Bilirubin AST ALT Alkaline Phosphatase Lactate Dehydrogenase Troponin T C-Reactive Protein Total Protein Albumin Prealbumin Triglycerides Cholesterol LDL Cholesterol Direct HDL Cholesterol Urine pH Urine WBC (Auto) Urine Creatinine Urine Total Protein Fluid Total Protein Vancomycin Trough Rheumatoid Factor Complement C4 Miscellaneous Test Crossmatch 09/27/16 09/27/16 09/27/16 11:23 15:00 18:15 WBC RBC Hgb Hct MCV MCH MCHC RDW Plt Count Lymph % (Auto) [place] % (Auto) Lymph # [place] # Baso # Seg Neutrophils % Seg Neuts % (Manual) Lymphocytes % (Manual) Monocytes % (Manual) Eosinophils % (Manual) Basophils % (Manual) Nucleated RBC % Seg Neutrophils # Seg Neutrophils # Man Lymphocytes # (Manual) Monocytes # (Manual) Eosinophils # (Manual) Basophils # (Manual) PT INR Fibrinogen dRVVT Confirm Interp Factor V Activity POC ABG pH 7.459 H POC ABG pCO2 27.1 L POC ABG pO2 140 H ABG pO2 ABG HCO3 ABG Base Excess ABG Hemoglobin Oxyhemoglobin Sodium Potassium Chloride Carbon Dioxide BUN Creatinine Glucose POC Glucose 114 H 127 H Lactic Acid Calcium Phosphorus Magnesium Direct Bilirubin AST ALT Alkaline Phosphatase Lactate Dehydrogenase Troponin T C-Reactive Protein Total Protein Albumin Prealbumin Triglycerides Cholesterol LDL Cholesterol Direct HDL Cholesterol Urine pH Urine WBC (Auto) Urine Creatinine Urine Total Protein Fluid Total Protein Vancomycin Trough Rheumatoid Factor Complement C4 Miscellaneous Test Crossmatch 09/27/16 09/27/16 09/28/16 Unknown Unknown 03:45 WBC RBC 2.49 L Hgb 6.8 L Hct 20.7 L MCV MCH 27 L MCHC RDW 22.1 H Plt Count Lymph % (Auto) [place] % (Auto) Lymph # [place] # Baso # Seg Neutrophils % Seg Neuts % (Manual) 32.0 L Lymphocytes % (Manual) 12.0 L Monocytes % (Manual) 11.0 H Eosinophils % (Manual) 10.0 H Basophils % (Manual) Nucleated RBC % Seg Neutrophils # Seg Neutrophils # Man Lymphocytes # (Manual) 1.0 L Monocytes # (Manual) 0.9 H Eosinophils # (Manual) 0.8 H Basophils # (Manual) PT INR Fibrinogen dRVVT Confirm Interp Factor V Activity POC ABG pH POC ABG pCO2 POC ABG pO2 ABG pO2 ABG HCO3 ABG Base Excess ABG Hemoglobin Oxyhemoglobin Sodium 135 L 135 L Potassium 3.5 L Chloride 93.6 L 94.4 L Carbon Dioxide 17 L 21 L BUN 45 H 28 H Creatinine 3.3 H 2.5 H Glucose 106 H POC Glucose Lactic Acid Calcium 7.3 L 7.1 L Phosphorus Magnesium Direct Bilirubin AST ALT Alkaline Phosphatase Lactate Dehydrogenase Troponin T C-Reactive Protein Total Protein Albumin Prealbumin Triglycerides Cholesterol LDL Cholesterol Direct HDL Cholesterol Urine pH Urine WBC (Auto) Urine Creatinine Urine Total Protein Fluid Total Protein Vancomycin Trough Rheumatoid Factor Complement C4 Miscellaneous Test Crossmatch 09/28/16 09/28/16 09/28/16 03:45 07:25 11:58 WBC 13.3 H RBC 3.01 L Hgb 8.4 L Hct 25.0 L MCV MCH MCHC RDW 20.5 H Plt Count 128 L Lymph % (Auto) [place] % (Auto) Lymph # [place] # Baso # Seg Neutrophils % Seg Neuts % (Manual) Lymphocytes % (Manual) 7.0 L Monocytes % (Manual) Eosinophils % (Manual) 6.0 H Basophils % (Manual) Nucleated RBC % Seg Neutrophils # Seg Neutrophils # Man Lymphocytes # (Manual) 0.9 L Monocytes # (Manual) Eosinophils # (Manual) 0.8 H Basophils # (Manual) PT INR Fibrinogen dRVVT Confirm Interp Factor V Activity POC ABG pH POC ABG pCO2 POC ABG pO2 ABG pO2 ABG HCO3 ABG Base Excess ABG Hemoglobin Oxyhemoglobin Sodium Potassium Chloride Carbon Dioxide BUN Creatinine Glucose POC Glucose 121 H Lactic Acid 4.50 H* Calcium Phosphorus Magnesium Direct Bilirubin AST ALT Alkaline Phosphatase Lactate Dehydrogenase Troponin T C-Reactive Protein Total Protein Albumin Prealbumin Triglycerides Cholesterol LDL Cholesterol Direct HDL Cholesterol Urine pH Urine WBC (Auto) Urine Creatinine Urine Total Protein Fluid Total Protein Vancomycin Trough Rheumatoid Factor Complement C4 Miscellaneous Test Crossmatch 09/29/16 09/29/16 09/29/16 06:45 06:45 06:45 WBC 14.9 H RBC 2.74 L Hgb 7.6 L Hct 23.2 L MCV MCH MCHC RDW 20.5 H Plt Count 81 L Lymph % (Auto) [place] % (Auto) Lymph # [place] # Baso # Seg Neutrophils % Seg Neuts % (Manual) 81.0 H Lymphocytes % (Manual) 4.0 L Monocytes % (Manual) Eosinophils % (Manual) Basophils % (Manual) Nucleated RBC % Seg Neutrophils # Seg Neutrophils # Man 12.1 H Lymphocytes # (Manual) 0.6 L Monocytes # (Manual) Eosinophils # (Manual) Basophils # (Manual) PT INR Fibrinogen dRVVT Confirm Interp Factor V Activity POC ABG pH POC ABG pCO2 POC ABG pO2 ABG pO2 ABG HCO3 ABG Base Excess ABG Hemoglobin Oxyhemoglobin Sodium 133 L Potassium 3.4 L Chloride 92.5 L Carbon Dioxide 21 L BUN 33 H Creatinine 3.0 H Glucose POC Glucose Lactic Acid Calcium 6.6 L Phosphorus Magnesium 1.40 L Direct Bilirubin 0.9 H AST ALT Alkaline Phosphatase Lactate Dehydrogenase Troponin T C-Reactive Protein Total Protein 4.3 L Albumin 1.3 L Prealbumin Triglycerides Cholesterol LDL Cholesterol Direct HDL Cholesterol Urine pH Urine WBC (Auto) Urine Creatinine Urine Total Protein Fluid Total Protein Vancomycin Trough Rheumatoid Factor Complement C4 Miscellaneous Test Crossmatch 09/29/16 09/29/16 09/30/16 17:52 20:12 00:07 WBC RBC Hgb Hct MCV MCH MCHC RDW Plt Count Lymph % (Auto) [place] % (Auto) Lymph # [place] # Baso # Seg Neutrophils % Seg Neuts % (Manual) Lymphocytes % (Manual) Monocytes % (Manual) Eosinophils % (Manual) Basophils % (Manual) Nucleated RBC % Seg Neutrophils # Seg Neutrophils # Man Lymphocytes # (Manual) Monocytes # (Manual) Eosinophils # (Manual) Basophils # (Manual) PT INR Fibrinogen dRVVT Confirm Interp Factor V Activity POC ABG pH POC ABG pCO2 POC ABG pO2 ABG pO2 ABG HCO3 ABG Base Excess ABG Hemoglobin Oxyhemoglobin Sodium Potassium Chloride Carbon Dioxide BUN Creatinine Glucose POC Glucose 50 L 51 L Lactic Acid Calcium Phosphorus Magnesium Direct Bilirubin AST ALT Alkaline Phosphatase Lactate Dehydrogenase Troponin T 0.204 H* C-Reactive Protein Total Protein Albumin Prealbumin Triglycerides Cholesterol 31 L LDL Cholesterol Direct 4 L HDL Cholesterol 3 L Urine pH Urine WBC (Auto) Urine Creatinine Urine Total Protein Fluid Total Protein Vancomycin Trough Rheumatoid Factor Complement C4 Miscellaneous Test Crossmatch 09/30/16 09/30/16 09/30/16 01:30 05:15 06:10 WBC RBC Hgb Hct MCV MCH MCHC RDW Plt Count Lymph % (Auto) [place] % (Auto) Lymph # [place] # Baso # Seg Neutrophils % Seg Neuts % (Manual) Lymphocytes % (Manual) Monocytes % (Manual) Eosinophils % (Manual) Basophils % (Manual) Nucleated RBC % Seg Neutrophils # Seg Neutrophils # Man Lymphocytes # (Manual) Monocytes # (Manual) Eosinophils # (Manual) Basophils # (Manual) PT INR Fibrinogen dRVVT Confirm Interp Factor V Activity POC ABG pH POC ABG pCO2 POC ABG pO2 ABG pO2 ABG HCO3 ABG Base Excess ABG Hemoglobin Oxyhemoglobin Sodium 133 L Potassium 3.2 L Chloride 93.2 L Carbon Dioxide 19 L BUN 36 H Creatinine 3.2 H Glucose 104 H POC Glucose 167 H 146 H Lactic Acid Calcium 6.4 L Phosphorus Magnesium 1.60 L Direct Bilirubin AST ALT Alkaline Phosphatase Lactate Dehydrogenase Troponin T C-Reactive Protein Total Protein Albumin Prealbumin Triglycerides Cholesterol LDL Cholesterol Direct HDL Cholesterol Urine pH Urine WBC (Auto) Urine Creatinine Urine Total Protein Fluid Total Protein Vancomycin Trough Rheumatoid Factor Complement C4 Miscellaneous Test Crossmatch 09/30/16 09/30/16 09/30/16 11:26 13:39 18:38 WBC RBC Hgb Hct MCV MCH MCHC RDW Plt Count Lymph % (Auto) [place] % (Auto) Lymph # [place] # Baso # Seg Neutrophils % Seg Neuts % (Manual) Lymphocytes % (Manual) Monocytes % (Manual) Eosinophils % (Manual) Basophils % (Manual) Nucleated RBC % Seg Neutrophils # Seg Neutrophils # Man Lymphocytes # (Manual) Monocytes # (Manual) Eosinophils # (Manual) Basophils # (Manual) PT INR Fibrinogen dRVVT Confirm Interp Factor V Activity POC ABG pH 7.479 H POC ABG pCO2 29.8 L POC ABG pO2 117 H ABG pO2 ABG HCO3 ABG Base Excess ABG Hemoglobin Oxyhemoglobin Sodium Potassium Chloride Carbon Dioxide BUN Creatinine Glucose POC Glucose 140 H 122 H Lactic Acid Calcium Phosphorus Magnesium Direct Bilirubin AST ALT Alkaline Phosphatase Lactate Dehydrogenase Troponin T C-Reactive Protein Total Protein Albumin Prealbumin Triglycerides Cholesterol LDL Cholesterol Direct HDL Cholesterol Urine pH Urine WBC (Auto) Urine Creatinine Urine Total Protein Fluid Total Protein Vancomycin Trough Rheumatoid Factor Complement C4 Miscellaneous Test Crossmatch 10/01/16 10/01/16 10/01/16 06:00 06:00 12:37 WBC 12.6 H RBC 2.75 L Hgb 7.3 L Hct 23.3 L MCV MCH 27 L MCHC RDW 20.6 H Plt Count 72 L Lymph % (Auto) [place] % (Auto) Lymph # [place] # Baso # Seg Neutrophils % Seg Neuts % (Manual) 31.0 L Lymphocytes % (Manual) 8.0 L Monocytes % (Manual) Eosinophils % (Manual) Basophils % (Manual) Nucleated RBC % 3.0 H Seg Neutrophils # Seg Neutrophils # Man Lymphocytes # (Manual) 1.0 L Monocytes # (Manual) Eosinophils # (Manual) Basophils # (Manual) PT INR Fibrinogen dRVVT Confirm Interp Factor V Activity POC ABG pH POC ABG pCO2 POC ABG pO2 ABG pO2 ABG HCO3 ABG Base Excess ABG Hemoglobin Oxyhemoglobin Sodium 127 L Potassium Chloride 86.8 L Carbon Dioxide 20 L BUN 42 H Creatinine 3.5 H Glucose POC Glucose 65 L Lactic Acid Calcium 7.0 L Phosphorus Magnesium Direct Bilirubin AST ALT Alkaline Phosphatase Lactate Dehydrogenase Troponin T C-Reactive Protein Total Protein Albumin Prealbumin Triglycerides Cholesterol LDL Cholesterol Direct HDL Cholesterol Urine pH Urine WBC (Auto) Urine Creatinine Urine Total Protein Fluid Total Protein Vancomycin Trough Rheumatoid Factor Complement C4 Miscellaneous Test Crossmatch 10/01/16 10/01/16 10/02/16 17:39 23:32 00:59 WBC RBC Hgb Hct MCV MCH MCHC RDW Plt Count Lymph % (Auto) [place] % (Auto) Lymph # [place] # Baso # Seg Neutrophils % Seg Neuts % (Manual) Lymphocytes % (Manual) Monocytes % (Manual) Eosinophils % (Manual) Basophils % (Manual) Nucleated RBC % Seg Neutrophils # Seg Neutrophils # Man Lymphocytes # (Manual) Monocytes # (Manual) Eosinophils # (Manual) Basophils # (Manual) PT INR Fibrinogen dRVVT Confirm Interp Factor V Activity POC ABG pH POC ABG pCO2 POC ABG pO2 ABG pO2 ABG HCO3 ABG Base Excess ABG Hemoglobin Oxyhemoglobin Sodium Potassium Chloride Carbon Dioxide BUN Creatinine Glucose POC Glucose 107 H 52 L 145 H Lactic Acid Calcium Phosphorus Magnesium Direct Bilirubin AST ALT Alkaline Phosphatase Lactate Dehydrogenase Troponin T C-Reactive Protein Total Protein Albumin Prealbumin Triglycerides Cholesterol LDL Cholesterol Direct HDL Cholesterol Urine pH Urine WBC (Auto) Urine Creatinine Urine Total Protein Fluid Total Protein Vancomycin Trough Rheumatoid Factor Complement C4 Miscellaneous Test Crossmatch 10/02/16 10/02/16 10/02/16 10:30 10:50 10:50 WBC 14.7 H RBC 2.76 L Hgb 7.4 L Hct 23.6 L MCV MCH 27 L MCHC RDW 20.2 H Plt Count 79 L Lymph % (Auto) [place] % (Auto) Lymph # [place] # Baso # Seg Neutrophils % Seg Neuts % (Manual) 86.0 H Lymphocytes % (Manual) 6.0 L Monocytes % (Manual) Eosinophils % (Manual) Basophils % (Manual) Nucleated RBC % Seg Neutrophils # Seg Neutrophils # Man 12.6 H Lymphocytes # (Manual) 0.9 L Monocytes # (Manual) Eosinophils # (Manual) Basophils # (Manual) PT INR Fibrinogen dRVVT Confirm Interp Factor V Activity POC ABG pH 7.486 H POC ABG pCO2 30.1 L POC ABG pO2 108 H ABG pO2 ABG HCO3 ABG Base Excess ABG Hemoglobin Oxyhemoglobin Sodium 131 L Potassium 3.4 L Chloride 89.9 L Carbon Dioxide BUN 26 H Creatinine 2.6 H Glucose POC Glucose Lactic Acid Calcium 7.0 L Phosphorus Magnesium Direct Bilirubin AST ALT Alkaline Phosphatase Lactate Dehydrogenase Troponin T C-Reactive Protein Total Protein Albumin Prealbumin Triglycerides Cholesterol LDL Cholesterol Direct HDL Cholesterol Urine pH Urine WBC (Auto) Urine Creatinine Urine Total Protein Fluid Total Protein Vancomycin Trough Rheumatoid Factor Complement C4 Miscellaneous Test Crossmatch 10/02/16 10/03/16 10/03/16 23:45 00:45 05:10 WBC 12.9 H RBC 2.77 L Hgb 7.6 L Hct 23.7 L MCV MCH 27 L MCHC RDW 19.7 H Plt Count 89 L Lymph % (Auto) [place] % (Auto) Lymph # [place] # Baso # Seg Neutrophils % Seg Neuts % (Manual) Lymphocytes % (Manual) 8.0 L Monocytes % (Manual) Eosinophils % (Manual) Basophils % (Manual) Nucleated RBC % Seg Neutrophils # 11.9 H Seg Neutrophils # Man Lymphocytes # (Manual) 1.0 L Monocytes # (Manual) Eosinophils # (Manual) Basophils # (Manual) PT INR Fibrinogen dRVVT Confirm Interp Factor V Activity POC ABG pH POC ABG pCO2 POC ABG pO2 ABG pO2 ABG HCO3 ABG Base Excess ABG Hemoglobin Oxyhemoglobin Sodium Potassium Chloride Carbon Dioxide BUN Creatinine Glucose POC Glucose 55 L 199 H Lactic Acid Calcium Phosphorus Magnesium Direct Bilirubin AST ALT Alkaline Phosphatase Lactate Dehydrogenase Troponin T C-Reactive Protein Total Protein Albumin Prealbumin Triglycerides Cholesterol LDL Cholesterol Direct HDL Cholesterol Urine pH Urine WBC (Auto) Urine Creatinine Urine Total Protein Fluid Total Protein Vancomycin Trough Rheumatoid Factor Complement C4 Miscellaneous Test Crossmatch 10/03/16 10/03/16 10/03/16 05:10 12:14 13:18 WBC RBC Hgb Hct MCV MCH MCHC RDW Plt Count Lymph % (Auto) [place] % (Auto) Lymph # [place] # Baso # Seg Neutrophils % Seg Neuts % (Manual) Lymphocytes % (Manual) Monocytes % (Manual) Eosinophils % (Manual) Basophils % (Manual) Nucleated RBC % Seg Neutrophils # Seg Neutrophils # Man Lymphocytes # (Manual) Monocytes # (Manual) Eosinophils # (Manual) Basophils # (Manual) PT INR Fibrinogen dRVVT Confirm Interp Factor V Activity POC ABG pH POC ABG pCO2 POC ABG pO2 ABG pO2 ABG HCO3 ABG Base Excess ABG Hemoglobin Oxyhemoglobin Sodium 129 L Potassium 3.3 L Chloride 88.8 L Carbon Dioxide 20 L BUN 29 H Creatinine 2.8 H Glucose POC Glucose 68 L 127 H Lactic Acid Calcium 7.2 L Phosphorus Magnesium Direct Bilirubin AST ALT Alkaline Phosphatase Lactate Dehydrogenase Troponin T C-Reactive Protein Total Protein Albumin Prealbumin Triglycerides Cholesterol LDL Cholesterol Direct HDL Cholesterol Urine pH Urine WBC (Auto) Urine Creatinine Urine Total Protein Fluid Total Protein Vancomycin Trough Rheumatoid Factor Complement C4 Miscellaneous Test Crossmatch 10/03/16 10/03/16 10/03/16 14:42 18:21 19:09 WBC RBC Hgb Hct MCV MCH MCHC RDW Plt Count Lymph % (Auto) [place] % (Auto) Lymph # [place] # Baso # Seg Neutrophils % Seg Neuts % (Manual) Lymphocytes % (Manual) Monocytes % (Manual) Eosinophils % (Manual) Basophils % (Manual) Nucleated RBC % Seg Neutrophils # Seg Neutrophils # Man Lymphocytes # (Manual) Monocytes # (Manual) Eosinophils # (Manual) Basophils # (Manual) PT INR Fibrinogen dRVVT Confirm Interp Factor V Activity POC ABG pH 7.499 H POC ABG pCO2 28.4 L POC ABG pO2 44 L ABG pO2 ABG HCO3 ABG Base Excess ABG Hemoglobin Oxyhemoglobin Sodium Potassium Chloride Carbon Dioxide BUN Creatinine Glucose POC Glucose 64 L 205 H Lactic Acid Calcium Phosphorus Magnesium Direct Bilirubin AST ALT Alkaline Phosphatase Lactate Dehydrogenase Troponin T C-Reactive Protein Total Protein Albumin Prealbumin Triglycerides Cholesterol LDL Cholesterol Direct HDL Cholesterol Urine pH Urine WBC (Auto) Urine Creatinine Urine Total Protein Fluid Total Protein Vancomycin Trough Rheumatoid Factor Complement C4 Miscellaneous Test Crossmatch 10/03/16 10/04/16 10/04/16 23:33 04:18 06:30 WBC RBC 2.54 L Hgb 7.1 L Hct 21.7 L MCV MCH MCHC RDW 19.5 H Plt Count 76 L Lymph % (Auto) [place] % (Auto) Lymph # [place] # Baso # Seg Neutrophils % Seg Neuts % (Manual) 88.0 H Lymphocytes % (Manual) 6.0 L Monocytes % (Manual) Eosinophils % (Manual) Basophils % (Manual) Nucleated RBC % Seg Neutrophils # Seg Neutrophils # Man 8.8 H Lymphocytes # (Manual) 0.6 L Monocytes # (Manual) Eosinophils # (Manual) Basophils # (Manual) PT INR Fibrinogen dRVVT Confirm Interp Factor V Activity POC ABG pH 7.461 H POC ABG pCO2 33.6 L POC ABG pO2 211 H ABG pO2 ABG HCO3 ABG Base Excess ABG Hemoglobin Oxyhemoglobin Sodium Potassium Chloride Carbon Dioxide BUN Creatinine Glucose POC Glucose 136 H Lactic Acid Calcium Phosphorus Magnesium Direct Bilirubin AST ALT Alkaline Phosphatase Lactate Dehydrogenase Troponin T C-Reactive Protein Total Protein Albumin Prealbumin Triglycerides Cholesterol LDL Cholesterol Direct HDL Cholesterol Urine pH Urine WBC (Auto) Urine Creatinine Urine Total Protein Fluid Total Protein Vancomycin Trough Rheumatoid Factor Complement C4 Miscellaneous Test Crossmatch 10/04/16 10/04/16 10/04/16 06:30 11:45 17:54 WBC RBC Hgb Hct MCV MCH MCHC RDW Plt Count Lymph % (Auto) [place] % (Auto) Lymph # [place] # Baso # Seg Neutrophils % Seg Neuts % (Manual) Lymphocytes % (Manual) Monocytes % (Manual) Eosinophils % (Manual) Basophils % (Manual) Nucleated RBC % Seg Neutrophils # Seg Neutrophils # Man Lymphocytes # (Manual) Monocytes # (Manual) Eosinophils # (Manual) Basophils # (Manual) PT INR Fibrinogen dRVVT Confirm Interp Factor V Activity POC ABG pH POC ABG pCO2 POC ABG pO2 ABG pO2 ABG HCO3 ABG Base Excess ABG Hemoglobin Oxyhemoglobin Sodium 128 L Potassium Chloride 87.4 L Carbon Dioxide 20 L BUN 34 H Creatinine 2.9 H Glucose 127 H POC Glucose 158 H 160 H Lactic Acid Calcium 7.4 L Phosphorus Magnesium Direct Bilirubin AST ALT Alkaline Phosphatase Lactate Dehydrogenase Troponin T C-Reactive Protein Total Protein Albumin Prealbumin Triglycerides Cholesterol LDL Cholesterol Direct HDL Cholesterol Urine pH Urine WBC (Auto) Urine Creatinine Urine Total Protein Fluid Total Protein Vancomycin Trough Rheumatoid Factor Complement C4 Miscellaneous Test Crossmatch 10/04/16 10/05/16 10/05/16 23:25 04:30 05:00 WBC RBC 2.64 L Hgb 7.5 L Hct 22.6 L MCV MCH MCHC RDW 19.3 H Plt Count 80 L Lymph % (Auto) [place] % (Auto) Lymph # [place] # Baso # Seg Neutrophils % Seg Neuts % (Manual) Lymphocytes % (Manual) 12.0 L Monocytes % (Manual) Eosinophils % (Manual) Basophils % (Manual) Nucleated RBC % Seg Neutrophils # Seg Neutrophils # Man Lymphocytes # (Manual) Monocytes # (Manual) Eosinophils # (Manual) Basophils # (Manual) PT INR Fibrinogen dRVVT Confirm Interp Factor V Activity POC ABG pH 7.475 H POC ABG pCO2 33.3 L POC ABG pO2 140 H ABG pO2 ABG HCO3 ABG Base Excess ABG Hemoglobin Oxyhemoglobin Sodium Potassium Chloride Carbon Dioxide BUN Creatinine Glucose POC Glucose 141 H Lactic Acid Calcium Phosphorus Magnesium Direct Bilirubin AST ALT Alkaline Phosphatase Lactate Dehydrogenase Troponin T C-Reactive Protein Total Protein Albumin Prealbumin Triglycerides Cholesterol LDL Cholesterol Direct HDL Cholesterol Urine pH Urine WBC (Auto) Urine Creatinine Urine Total Protein Fluid Total Protein Vancomycin Trough Rheumatoid Factor Complement C4 Miscellaneous Test Crossmatch 10/05/16 10/05/16 10/05/16 05:00 05:09 12:58 WBC RBC Hgb Hct MCV MCH MCHC RDW Plt Count Lymph % (Auto) [place] % (Auto) Lymph # [place] # Baso # Seg Neutrophils % Seg Neuts % (Manual) Lymphocytes % (Manual) Monocytes % (Manual) Eosinophils % (Manual) Basophils % (Manual) Nucleated RBC % Seg Neutrophils # Seg Neutrophils # Man Lymphocytes # (Manual) Monocytes # (Manual) Eosinophils # (Manual) Basophils # (Manual) PT INR Fibrinogen dRVVT Confirm Interp Factor V Activity POC ABG pH POC ABG pCO2 POC ABG pO2 ABG pO2 ABG HCO3 ABG Base Excess ABG Hemoglobin Oxyhemoglobin Sodium 131 L Potassium Chloride 94.0 L Carbon Dioxide 20 L BUN 22 H Creatinine 2.0 H Glucose 123 H POC Glucose 166 H 179 H Lactic Acid Calcium 7.7 L Phosphorus 2.20 L D Magnesium Direct Bilirubin AST ALT Alkaline Phosphatase Lactate Dehydrogenase Troponin T C-Reactive Protein Total Protein Albumin Prealbumin Triglycerides Cholesterol LDL Cholesterol Direct HDL Cholesterol Urine pH Urine WBC (Auto) Urine Creatinine Urine Total Protein Fluid Total Protein Vancomycin Trough Rheumatoid Factor Complement C4 Miscellaneous Test Crossmatch 10/05/16 10/05/16 10/05/16 15:50 18:53 23:12 WBC RBC Hgb Hct MCV MCH MCHC RDW Plt Count Lymph % (Auto) [place] % (Auto) Lymph # [place] # Baso # Seg Neutrophils % Seg Neuts % (Manual) Lymphocytes % (Manual) Monocytes % (Manual) Eosinophils % (Manual) Basophils % (Manual) Nucleated RBC % Seg Neutrophils # Seg Neutrophils # Man Lymphocytes # (Manual) Monocytes # (Manual) Eosinophils # (Manual) Basophils # (Manual) PT INR Fibrinogen dRVVT Confirm Interp Factor V Activity POC ABG pH POC ABG pCO2 POC ABG pO2 ABG pO2 ABG HCO3 ABG Base Excess ABG Hemoglobin Oxyhemoglobin Sodium Potassium Chloride Carbon Dioxide BUN Creatinine Glucose POC Glucose 150 H 164 H Lactic Acid Calcium Phosphorus Magnesium Direct Bilirubin AST ALT Alkaline Phosphatase Lactate Dehydrogenase Troponin T C-Reactive Protein Total Protein Albumin Prealbumin Triglycerides Cholesterol LDL Cholesterol Direct HDL Cholesterol Urine pH Urine WBC (Auto) Urine Creatinine Urine Total Protein Fluid Total Protein Vancomycin Trough Rheumatoid Factor Complement C4 Miscellaneous Test Crossmatch See Detail 10/06/16 10/06/16 10/06/16 03:50 03:50 04:53 WBC RBC 3.00 L Hgb 8.6 L Hct 25.8 L MCV MCH MCHC RDW 17.9 H Plt Count 65 L Lymph % (Auto) [place] % (Auto) Lymph # [place] # Baso # Seg Neutrophils % Seg Neuts % (Manual) 30.0 L Lymphocytes % (Manual) 5.0 L Monocytes % (Manual) Eosinophils % (Manual) Basophils % (Manual) Nucleated RBC % Seg Neutrophils # Seg Neutrophils # Man Lymphocytes # (Manual) 0.4 L Monocytes # (Manual) Eosinophils # (Manual) Basophils # (Manual) PT INR Fibrinogen dRVVT Confirm Interp Factor V Activity POC ABG pH 7.310 L POC ABG pCO2 49.0 H POC ABG pO2 ABG pO2 ABG HCO3 ABG Base Excess ABG Hemoglobin Oxyhemoglobin Sodium 133 L Potassium Chloride 95.9 L Carbon Dioxide BUN 26 H Creatinine 2.0 H Glucose 116 H POC Glucose Lactic Acid Calcium 7.8 L Phosphorus Magnesium Direct Bilirubin AST ALT Alkaline Phosphatase Lactate Dehydrogenase Troponin T C-Reactive Protein Total Protein Albumin Prealbumin Triglycerides Cholesterol LDL Cholesterol Direct HDL Cholesterol Urine pH Urine WBC (Auto) Urine Creatinine Urine Total Protein Fluid Total Protein Vancomycin Trough Rheumatoid Factor Complement C4 Miscellaneous Test Crossmatch 10/06/16 10/06/16 10/06/16 05:23 11:52 18:34 WBC RBC Hgb Hct MCV MCH MCHC RDW Plt Count Lymph % (Auto) [place] % (Auto) Lymph # [place] # Baso # Seg Neutrophils % Seg Neuts % (Manual) Lymphocytes % (Manual) Monocytes % (Manual) Eosinophils % (Manual) Basophils % (Manual) Nucleated RBC % Seg Neutrophils # Seg Neutrophils # Man Lymphocytes # (Manual) Monocytes # (Manual) Eosinophils # (Manual) Basophils # (Manual) PT INR Fibrinogen dRVVT Confirm Interp Factor V Activity POC ABG pH POC ABG pCO2 POC ABG pO2 ABG pO2 ABG HCO3 ABG Base Excess ABG Hemoglobin Oxyhemoglobin Sodium Potassium Chloride Carbon Dioxide BUN Creatinine Glucose POC Glucose 126 H 116 H 129 H Lactic Acid Calcium Phosphorus Magnesium Direct Bilirubin AST ALT Alkaline Phosphatase Lactate Dehydrogenase Troponin T C-Reactive Protein Total Protein Albumin Prealbumin Triglycerides Cholesterol LDL Cholesterol Direct HDL Cholesterol Urine pH Urine WBC (Auto) Urine Creatinine Urine Total Protein Fluid Total Protein Vancomycin Trough Rheumatoid Factor Complement C4 Miscellaneous Test Crossmatch 10/07/16 10/07/16 10/07/16 03:45 05:00 10:00 WBC 17.0 H RBC 2.68 L Hgb 7.3 L Hct 25.3 L MCV MCH 27 L MCHC 29 L RDW 19.6 H Plt Count 74 L Lymph % (Auto) [place] % (Auto) Lymph # [place] # Baso # Seg Neutrophils % Seg Neuts % (Manual) Lymphocytes % (Manual) 12.0 L Monocytes % (Manual) Eosinophils % (Manual) Basophils % (Manual) Nucleated RBC % 4.0 H Seg Neutrophils # Seg Neutrophils # Man 10.7 H Lymphocytes # (Manual) Monocytes # (Manual) Eosinophils # (Manual) Basophils # (Manual) PT INR Fibrinogen dRVVT Confirm Interp Factor V Activity POC ABG pH POC ABG pCO2 POC ABG pO2 ABG pO2 ABG HCO3 ABG Base Excess ABG Hemoglobin Oxyhemoglobin Sodium 130 L Potassium 3.2 L Chloride 93.9 L Carbon Dioxide 20 L BUN 44 H Creatinine 2.7 H Glucose 129 H POC Glucose Lactic Acid Calcium 7.4 L Phosphorus Magnesium Direct Bilirubin AST ALT 6 L Alkaline Phosphatase 195 H Lactate Dehydrogenase Troponin T C-Reactive Protein Total Protein 4.9 L Albumin 1.0 L Prealbumin Triglycerides Cholesterol LDL Cholesterol Direct HDL Cholesterol Urine pH Urine WBC (Auto) Urine Creatinine Urine Total Protein Fluid Total Protein Vancomycin Trough Rheumatoid Factor Complement C4 Miscellaneous Test Flexitest 1 H Crossmatch 10/07/16 10/07/16 10/07/16 10:00 11:24 18:10 WBC RBC Hgb Hct MCV MCH MCHC RDW Plt Count Lymph % (Auto) [place] % (Auto) Lymph # [place] # Baso # Seg Neutrophils % Seg Neuts % (Manual) Lymphocytes % (Manual) Monocytes % (Manual) Eosinophils % (Manual) Basophils % (Manual) Nucleated RBC % Seg Neutrophils # Seg Neutrophils # Man Lymphocytes # (Manual) Monocytes # (Manual) Eosinophils # (Manual) Basophils # (Manual) PT INR Fibrinogen dRVVT Confirm Interp Factor V Activity POC ABG pH POC ABG pCO2 POC ABG pO2 ABG pO2 ABG HCO3 ABG Base Excess ABG Hemoglobin Oxyhemoglobin Sodium Potassium Chloride Carbon Dioxide BUN Creatinine Glucose POC Glucose 116 H 130 H Lactic Acid Calcium Phosphorus Magnesium Direct Bilirubin AST ALT Alkaline Phosphatase Lactate Dehydrogenase Troponin T C-Reactive Protein 19.40 H Total Protein Albumin Prealbumin Triglycerides Cholesterol LDL Cholesterol Direct HDL Cholesterol Urine pH Urine WBC (Auto) Urine Creatinine Urine Total Protein Fluid Total Protein Vancomycin Trough Rheumatoid Factor Complement C4 Miscellaneous Test Crossmatch 10/07/16 10/08/16 10/08/16 18:30 00:00 04:00 WBC RBC Hgb Hct MCV MCH MCHC RDW Plt Count Lymph % (Auto) [place] % (Auto) Lymph # [place] # Baso # Seg Neutrophils % Seg Neuts % (Manual) Lymphocytes % (Manual) Monocytes % (Manual) Eosinophils % (Manual) Basophils % (Manual) Nucleated RBC % Seg Neutrophils # Seg Neutrophils # Man Lymphocytes # (Manual) Monocytes # (Manual) Eosinophils # (Manual) Basophils # (Manual) PT INR Fibrinogen dRVVT Confirm Interp Factor V Activity POC ABG pH POC ABG pCO2 POC ABG pO2 ABG pO2 ABG HCO3 ABG Base Excess ABG Hemoglobin Oxyhemoglobin Sodium 132 L Potassium 3.3 L Chloride 93.6 L Carbon Dioxide 17 L BUN 59 H Creatinine 2.7 H Glucose 121 H POC Glucose 122 H Lactic Acid Calcium 7.6 L Phosphorus Magnesium Direct Bilirubin AST ALT Alkaline Phosphatase Lactate Dehydrogenase Troponin T C-Reactive Protein Total Protein Albumin Prealbumin Triglycerides Cholesterol LDL Cholesterol Direct HDL Cholesterol Urine pH Urine WBC (Auto) > 182.0 H Urine Creatinine Urine Total Protein Fluid Total Protein Vancomycin Trough Rheumatoid Factor Complement C4 Miscellaneous Test Crossmatch 10/08/16 10/08/16 10/08/16 04:30 05:30 11:51 WBC RBC 5.15 H Hgb 14.4 H D Hct 44.5 H D MCV MCH MCHC RDW 19.5 H Plt Count 56 L Lymph % (Auto) [place] % (Auto) Lymph # [place] # Baso # Seg Neutrophils % Seg Neuts % (Manual) 24.0 L Lymphocytes % (Manual) 8.0 L Monocytes % (Manual) Eosinophils % (Manual) Basophils % (Manual) Nucleated RBC % 9.0 H Seg Neutrophils # Seg Neutrophils # Man Lymphocytes # (Manual) 0.7 L Monocytes # (Manual) Eosinophils # (Manual) Basophils # (Manual) PT INR Fibrinogen dRVVT Confirm Interp Factor V Activity POC ABG pH POC ABG pCO2 POC ABG pO2 ABG pO2 ABG HCO3 ABG Base Excess ABG Hemoglobin Oxyhemoglobin Sodium Potassium Chloride Carbon Dioxide BUN Creatinine Glucose POC Glucose 125 H 150 H Lactic Acid Calcium Phosphorus Magnesium Direct Bilirubin AST ALT Alkaline Phosphatase Lactate Dehydrogenase Troponin T C-Reactive Protein Total Protein Albumin Prealbumin Triglycerides Cholesterol LDL Cholesterol Direct HDL Cholesterol Urine pH Urine WBC (Auto) Urine Creatinine Urine Total Protein Fluid Total Protein Vancomycin Trough Rheumatoid Factor Complement C4 Miscellaneous Test Crossmatch 10/08/16 10/08/16 10/08/16 12:49 17:07 19:30 WBC RBC Hgb 7.1 L D Hct 22.4 L D MCV MCH MCHC RDW Plt Count Lymph % (Auto) [place] % (Auto) Lymph # [place] # Baso # Seg Neutrophils % Seg Neuts % (Manual) Lymphocytes % (Manual) Monocytes % (Manual) Eosinophils % (Manual) Basophils % (Manual) Nucleated RBC % Seg Neutrophils # Seg Neutrophils # Man Lymphocytes # (Manual) Monocytes # (Manual) Eosinophils # (Manual) Basophils # (Manual) PT INR Fibrinogen dRVVT Confirm Interp Factor V Activity POC ABG pH POC ABG pCO2 28.2 L POC ABG pO2 111 H ABG pO2 ABG HCO3 ABG Base Excess ABG Hemoglobin Oxyhemoglobin Sodium Potassium Chloride Carbon Dioxide BUN Creatinine Glucose POC Glucose 145 H Lactic Acid Calcium Phosphorus Magnesium Direct Bilirubin AST ALT Alkaline Phosphatase Lactate Dehydrogenase Troponin T C-Reactive Protein Total Protein Albumin Prealbumin Triglycerides Cholesterol LDL Cholesterol Direct HDL Cholesterol Urine pH Urine WBC (Auto) Urine Creatinine Urine Total Protein Fluid Total Protein Vancomycin Trough Rheumatoid Factor Complement C4 Miscellaneous Test Crossmatch 10/08/16 10/09/16 10/09/16 19:30 03:45 03:45 WBC 12.6 H RBC 2.36 L Hgb 6.7 L Hct 21.1 L MCV MCH MCHC RDW 19.5 H Plt Count 75 L Lymph % (Auto) [place] % (Auto) Lymph # [place] # Baso # Seg Neutrophils % Seg Neuts % (Manual) Lymphocytes % (Manual) Monocytes % (Manual) 10.0 H Eosinophils % (Manual) Basophils % (Manual) Nucleated RBC % 3.0 H Seg Neutrophils # Seg Neutrophils # Man Lymphocytes # (Manual) Monocytes # (Manual) 1.3 H Eosinophils # (Manual) Basophils # (Manual) PT 18.0 H INR 1.41 H Fibrinogen dRVVT Confirm Interp Factor V Activity POC ABG pH POC ABG pCO2 POC ABG pO2 ABG pO2 ABG HCO3 ABG Base Excess ABG Hemoglobin Oxyhemoglobin Sodium 135 L Potassium Chloride Carbon Dioxide 17 L BUN 81 H Creatinine 3.2 H Glucose 109 H POC Glucose Lactic Acid Calcium 7.4 L Phosphorus 4.60 H D Magnesium Direct Bilirubin AST ALT Alkaline Phosphatase Lactate Dehydrogenase Troponin T C-Reactive Protein Total Protein Albumin Prealbumin Triglycerides Cholesterol LDL Cholesterol Direct HDL Cholesterol Urine pH Urine WBC (Auto) Urine Creatinine Urine Total Protein Fluid Total Protein Vancomycin Trough Rheumatoid Factor Complement C4 Miscellaneous Test Crossmatch 10/09/16 10/09/16 10/09/16 03:45 05:14 07:20 WBC RBC Hgb Hct MCV MCH MCHC RDW Plt Count Lymph % (Auto) [place] % (Auto) Lymph # [place] # Baso # Seg Neutrophils % Seg Neuts % (Manual) Lymphocytes % (Manual) Monocytes % (Manual) Eosinophils % (Manual) Basophils % (Manual) Nucleated RBC % Seg Neutrophils # Seg Neutrophils # Man Lymphocytes # (Manual) Monocytes # (Manual) Eosinophils # (Manual) Basophils # (Manual) PT 19.0 H INR 1.51 H Fibrinogen dRVVT Confirm Interp Factor V Activity POC ABG pH POC ABG pCO2 POC ABG pO2 ABG pO2 ABG HCO3 ABG Base Excess ABG Hemoglobin Oxyhemoglobin Sodium Potassium Chloride Carbon Dioxide BUN Creatinine Glucose POC Glucose 151 H Lactic Acid Calcium Phosphorus Magnesium Direct Bilirubin AST ALT Alkaline Phosphatase Lactate Dehydrogenase Troponin T C-Reactive Protein Total Protein Albumin Prealbumin Triglycerides Cholesterol LDL Cholesterol Direct HDL Cholesterol Urine pH Urine WBC (Auto) Urine Creatinine Urine Total Protein Fluid Total Protein Vancomycin Trough Rheumatoid Factor Complement C4 Miscellaneous Test Crossmatch See Detail 10/09/16 10/09/16 10/09/16 11:46 16:20 16:43 WBC RBC Hgb 7.2 L Hct 22.2 L MCV MCH MCHC RDW Plt Count Lymph % (Auto) [place] % (Auto) Lymph # [place] # Baso # Seg Neutrophils % Seg Neuts % (Manual) Lymphocytes % (Manual) Monocytes % (Manual) Eosinophils % (Manual) Basophils % (Manual) Nucleated RBC % Seg Neutrophils # Seg Neutrophils # Man Lymphocytes # (Manual) Monocytes # (Manual) Eosinophils # (Manual) Basophils # (Manual) PT INR Fibrinogen dRVVT Confirm Interp Factor V Activity POC ABG pH POC ABG pCO2 POC ABG pO2 ABG pO2 ABG HCO3 ABG Base Excess ABG Hemoglobin Oxyhemoglobin Sodium Potassium Chloride Carbon Dioxide BUN Creatinine Glucose POC Glucose 133 H 141 H Lactic Acid Calcium Phosphorus Magnesium Direct Bilirubin AST ALT Alkaline Phosphatase Lactate Dehydrogenase Troponin T C-Reactive Protein Total Protein Albumin Prealbumin Triglycerides Cholesterol LDL Cholesterol Direct HDL Cholesterol Urine pH Urine WBC (Auto) Urine Creatinine Urine Total Protein Fluid Total Protein Vancomycin Trough Rheumatoid Factor Complement C4 Miscellaneous Test Crossmatch 10/10/16 10/10/16 10/10/16 05:00 05:00 11:19 WBC 18.5 H RBC 2.19 L Hgb 6.4 L Hct 19.6 L* MCV MCH MCHC RDW 19.3 H Plt Count 93 L Lymph % (Auto) [place] % (Auto) Lymph # [place] # Baso # Seg Neutrophils % Seg Neuts % (Manual) Lymphocytes % (Manual) 10.0 L Monocytes % (Manual) Eosinophils % (Manual) Basophils % (Manual) Nucleated RBC % 4.0 H Seg Neutrophils # Seg Neutrophils # Man 11.3 H Lymphocytes # (Manual) Monocytes # (Manual) Eosinophils # (Manual) Basophils # (Manual) PT INR Fibrinogen dRVVT Confirm Interp Factor V Activity POC ABG pH POC ABG pCO2 POC ABG pO2 ABG pO2 ABG HCO3 ABG Base Excess ABG Hemoglobin Oxyhemoglobin Sodium Potassium 5.7 H D Chloride Carbon Dioxide 16 L BUN 94 H Creatinine 3.1 H Glucose 131 H POC Glucose 153 H Lactic Acid Calcium 8.2 L Phosphorus 5.10 H Magnesium 2.40 H Direct Bilirubin 0.3 H AST ALT < 5 L Alkaline Phosphatase 319 H Lactate Dehydrogenase Troponin T C-Reactive Protein Total Protein 5.1 L Albumin 1.0 L Prealbumin Triglycerides Cholesterol LDL Cholesterol Direct HDL Cholesterol Urine pH Urine WBC (Auto) Urine Creatinine Urine Total Protein Fluid Total Protein Vancomycin Trough Rheumatoid Factor Complement C4 Miscellaneous Test Crossmatch 10/10/16 10/10/16 10/11/16 17:50 23:30 04:15 WBC RBC Hgb Hct MCV MCH MCHC RDW Plt Count Lymph % (Auto) [place] % (Auto) Lymph # [place] # Baso # Seg Neutrophils % Seg Neuts % (Manual) Lymphocytes % (Manual) Monocytes % (Manual) Eosinophils % (Manual) Basophils % (Manual) Nucleated RBC % Seg Neutrophils # Seg Neutrophils # Man Lymphocytes # (Manual) Monocytes # (Manual) Eosinophils # (Manual) Basophils # (Manual) PT INR Fibrinogen dRVVT Confirm Interp Factor V Activity POC ABG pH POC ABG pCO2 POC ABG pO2 ABG pO2 ABG HCO3 ABG Base Excess ABG Hemoglobin Oxyhemoglobin Sodium Potassium Chloride 96.4 L Carbon Dioxide 21 L BUN 57 H Creatinine 2.1 H Glucose 151 H POC Glucose 146 H 141 H Lactic Acid Calcium 8.3 L Phosphorus Magnesium Direct Bilirubin AST ALT Alkaline Phosphatase Lactate Dehydrogenase Troponin T C-Reactive Protein Total Protein Albumin Prealbumin Triglycerides Cholesterol LDL Cholesterol Direct HDL Cholesterol Urine pH Urine WBC (Auto) Urine Creatinine Urine Total Protein Fluid Total Protein Vancomycin Trough Rheumatoid Factor Complement C4 Miscellaneous Test Crossmatch 10/11/16 10/11/16 10/11/16 04:15 04:15 05:30 WBC 28.3 H RBC 3.12 L Hgb 9.3 L Hct 28.7 L D MCV MCH MCHC RDW 17.7 H Plt Count 128 L Lymph % (Auto) [place] % (Auto) Lymph # [place] # Baso # Seg Neutrophils % Seg Neuts % (Manual) Lymphocytes % (Manual) Monocytes % (Manual) Eosinophils % (Manual) Basophils % (Manual) Nucleated RBC % Seg Neutrophils # Seg Neutrophils # Man Lymphocytes # (Manual) Monocytes # (Manual) Eosinophils # (Manual) Basophils # (Manual) PT INR Fibrinogen dRVVT Confirm Interp Factor V Activity POC ABG pH POC ABG pCO2 POC ABG pO2 ABG pO2 ABG HCO3 ABG Base Excess ABG Hemoglobin Oxyhemoglobin Sodium Potassium Chloride Carbon Dioxide BUN Creatinine Glucose POC Glucose 167 H Lactic Acid Calcium Phosphorus Magnesium Direct Bilirubin AST ALT Alkaline Phosphatase Lactate Dehydrogenase Troponin T C-Reactive Protein 15.80 H Total Protein Albumin Prealbumin Triglycerides Cholesterol LDL Cholesterol Direct HDL Cholesterol Urine pH Urine WBC (Auto) Urine Creatinine Urine Total Protein Fluid Total Protein Vancomycin Trough Rheumatoid Factor Complement C4 Miscellaneous Test Crossmatch 10/11/16 10/11/16 10/11/16 11:40 15:49 23:57 WBC RBC Hgb Hct MCV MCH MCHC RDW Plt Count Lymph % (Auto) [place] % (Auto) Lymph # [place] # Baso # Seg Neutrophils % Seg Neuts % (Manual) Lymphocytes % (Manual) Monocytes % (Manual) Eosinophils % (Manual) Basophils % (Manual) Nucleated RBC % Seg Neutrophils # Seg Neutrophils # Man Lymphocytes # (Manual) Monocytes # (Manual) Eosinophils # (Manual) Basophils # (Manual) PT INR Fibrinogen dRVVT Confirm Interp Factor V Activity POC ABG pH POC ABG pCO2 POC ABG pO2 ABG pO2 ABG HCO3 ABG Base Excess ABG Hemoglobin Oxyhemoglobin Sodium Potassium Chloride Carbon Dioxide BUN Creatinine Glucose POC Glucose 139 H 168 H 161 H Lactic Acid Calcium Phosphorus Magnesium Direct Bilirubin AST ALT Alkaline Phosphatase Lactate Dehydrogenase Troponin T C-Reactive Protein Total Protein Albumin Prealbumin Triglycerides Cholesterol LDL Cholesterol Direct HDL Cholesterol Urine pH Urine WBC (Auto) Urine Creatinine Urine Total Protein Fluid Total Protein Vancomycin Trough Rheumatoid Factor Complement C4 Miscellaneous Test Crossmatch 10/12/16 10/12/16 10/12/16 04:40 04:40 05:44 WBC 22.5 H RBC 2.88 L Hgb 8.8 L Hct 26.8 L MCV MCH MCHC RDW 17.8 H Plt Count Lymph % (Auto) [place] % (Auto) Lymph # [place] # Baso # Seg Neutrophils % Seg Neuts % (Manual) Lymphocytes % (Manual) Monocytes % (Manual) Eosinophils % (Manual) Basophils % (Manual) Nucleated RBC % Seg Neutrophils # Seg Neutrophils # Man Lymphocytes # (Manual) Monocytes # (Manual) Eosinophils # (Manual) Basophils # (Manual) PT INR Fibrinogen dRVVT Confirm Interp Factor V Activity POC ABG pH POC ABG pCO2 POC ABG pO2 ABG pO2 ABG HCO3 ABG Base Excess ABG Hemoglobin Oxyhemoglobin Sodium 134 L Potassium Chloride 93.0 L Carbon Dioxide BUN 74 H Creatinine 2.5 H Glucose 137 H POC Glucose 158 H Lactic Acid Calcium 8.2 L Phosphorus Magnesium Direct Bilirubin AST ALT Alkaline Phosphatase Lactate Dehydrogenase Troponin T C-Reactive Protein Total Protein Albumin Prealbumin Triglycerides Cholesterol LDL Cholesterol Direct HDL Cholesterol Urine pH Urine WBC (Auto) Urine Creatinine Urine Total Protein Fluid Total Protein Vancomycin Trough Rheumatoid Factor Complement C4 Miscellaneous Test Crossmatch 10/12/16 10/12/16 10/12/16 12:27 18:18 23:46 WBC RBC Hgb Hct MCV MCH MCHC RDW Plt Count Lymph % (Auto) [place] % (Auto) Lymph # [place] # Baso # Seg Neutrophils % Seg Neuts % (Manual) Lymphocytes % (Manual) Monocytes % (Manual) Eosinophils % (Manual) Basophils % (Manual) Nucleated RBC % Seg Neutrophils # Seg Neutrophils # Man Lymphocytes # (Manual) Monocytes # (Manual) Eosinophils # (Manual) Basophils # (Manual) PT INR Fibrinogen dRVVT Confirm Interp Factor V Activity POC ABG pH POC ABG pCO2 POC ABG pO2 ABG pO2 ABG HCO3 ABG Base Excess ABG Hemoglobin Oxyhemoglobin Sodium Potassium Chloride Carbon Dioxide BUN Creatinine Glucose POC Glucose 153 H 140 H 150 H Lactic Acid Calcium Phosphorus Magnesium Direct Bilirubin AST ALT Alkaline Phosphatase Lactate Dehydrogenase Troponin T C-Reactive Protein Total Protein Albumin Prealbumin Triglycerides Cholesterol LDL Cholesterol Direct HDL Cholesterol Urine pH Urine WBC (Auto) Urine Creatinine Urine Total Protein Fluid Total Protein Vancomycin Trough Rheumatoid Factor Complement C4 Miscellaneous Test Crossmatch 10/13/16 10/13/16 10/13/16 06:22 09:20 12:29 WBC RBC Hgb Hct MCV MCH MCHC RDW Plt Count Lymph % (Auto) [place] % (Auto) Lymph # [place] # Baso # Seg Neutrophils % Seg Neuts % (Manual) Lymphocytes % (Manual) Monocytes % (Manual) Eosinophils % (Manual) Basophils % (Manual) Nucleated RBC % Seg Neutrophils # Seg Neutrophils # Man Lymphocytes # (Manual) Monocytes # (Manual) Eosinophils # (Manual) Basophils # (Manual) PT INR Fibrinogen dRVVT Confirm Interp Factor V Activity POC ABG pH POC ABG pCO2 POC ABG pO2 ABG pO2 ABG HCO3 ABG Base Excess ABG Hemoglobin Oxyhemoglobin Sodium Potassium Chloride Carbon Dioxide BUN Creatinine Glucose POC Glucose 165 H 193 H Lactic Acid Calcium Phosphorus Magnesium Direct Bilirubin AST ALT Alkaline Phosphatase Lactate Dehydrogenase Troponin T C-Reactive Protein Total Protein Albumin Prealbumin Triglycerides Cholesterol LDL Cholesterol Direct HDL Cholesterol Urine pH Urine WBC (Auto) Urine Creatinine Urine Total Protein Fluid Total Protein Vancomycin Trough Rheumatoid Factor Complement C4 Miscellaneous Test Flexitest 1 H Crossmatch 10/13/16 10/13/16 10/13/16 18:09 Unknown Unknown WBC 23.4 H RBC 2.83 L Hgb 8.7 L Hct 26.1 L MCV MCH MCHC RDW 18.1 H Plt Count Lymph % (Auto) [place] % (Auto) Lymph # [place] # Baso # Seg Neutrophils % Seg Neuts % (Manual) Lymphocytes % (Manual) Monocytes % (Manual) Eosinophils % (Manual) Basophils % (Manual) Nucleated RBC % Seg Neutrophils # Seg Neutrophils # Man Lymphocytes # (Manual) Monocytes # (Manual) Eosinophils # (Manual) Basophils # (Manual) PT INR Fibrinogen dRVVT Confirm Interp Factor V Activity POC ABG pH POC ABG pCO2 POC ABG pO2 ABG pO2 ABG HCO3 ABG Base Excess ABG Hemoglobin Oxyhemoglobin Sodium Potassium Chloride 95.8 L Carbon Dioxide BUN 82 H Creatinine 2.6 H Glucose 152 H POC Glucose 166 H Lactic Acid Calcium Phosphorus Magnesium Direct Bilirubin AST ALT Alkaline Phosphatase Lactate Dehydrogenase Troponin T C-Reactive Protein Total Protein Albumin Prealbumin Triglycerides Cholesterol LDL Cholesterol Direct HDL Cholesterol Urine pH Urine WBC (Auto) Urine Creatinine Urine Total Protein Fluid Total Protein Vancomycin Trough Rheumatoid Factor Complement C4 Miscellaneous Test Crossmatch 10/14/16 10/14/16 10/14/16 05:38 06:35 08:10 WBC 20.7 H RBC 2.81 L Hgb 8.4 L Hct 27.2 L MCV MCH MCHC RDW 19.4 H Plt Count Lymph % (Auto) [place] % (Auto) Lymph # [place] # Baso # Seg Neutrophils % Seg Neuts % (Manual) Lymphocytes % (Manual) Monocytes % (Manual) Eosinophils % (Manual) Basophils % (Manual) Nucleated RBC % Seg Neutrophils # Seg Neutrophils # Man Lymphocytes # (Manual) Monocytes # (Manual) Eosinophils # (Manual) Basophils # (Manual) PT INR Fibrinogen dRVVT Confirm Interp Factor V Activity POC ABG pH POC ABG pCO2 POC ABG pO2 ABG pO2 ABG HCO3 ABG Base Excess ABG Hemoglobin Oxyhemoglobin Sodium Potassium Chloride Carbon Dioxide BUN 58 H Creatinine 1.9 H Glucose 169 H POC Glucose 195 H Lactic Acid Calcium Phosphorus Magnesium Direct Bilirubin AST ALT Alkaline Phosphatase Lactate Dehydrogenase Troponin T C-Reactive Protein Total Protein Albumin Prealbumin Triglycerides Cholesterol LDL Cholesterol Direct HDL Cholesterol Urine pH Urine WBC (Auto) Urine Creatinine Urine Total Protein Fluid Total Protein Vancomycin Trough Rheumatoid Factor Complement C4 Miscellaneous Test Crossmatch 10/14/16 10/14/16 10/14/16 11:44 17:13 23:28 WBC RBC Hgb Hct MCV MCH MCHC RDW Plt Count Lymph % (Auto) [place] % (Auto) Lymph # [place] # Baso # Seg Neutrophils % Seg Neuts % (Manual) Lymphocytes % (Manual) Monocytes % (Manual) Eosinophils % (Manual) Basophils % (Manual) Nucleated RBC % Seg Neutrophils # Seg Neutrophils # Man Lymphocytes # (Manual) Monocytes # (Manual) Eosinophils # (Manual) Basophils # (Manual) PT INR Fibrinogen dRVVT Confirm Interp Factor V Activity POC ABG pH POC ABG pCO2 POC ABG pO2 ABG pO2 ABG HCO3 ABG Base Excess ABG Hemoglobin Oxyhemoglobin Sodium Potassium Chloride Carbon Dioxide BUN Creatinine Glucose POC Glucose 174 H 121 H 151 H Lactic Acid Calcium Phosphorus Magnesium Direct Bilirubin AST ALT Alkaline Phosphatase Lactate Dehydrogenase Troponin T C-Reactive Protein Total Protein Albumin Prealbumin Triglycerides Cholesterol LDL Cholesterol Direct HDL Cholesterol Urine pH Urine WBC (Auto) Urine Creatinine Urine Total Protein Fluid Total Protein Vancomycin Trough Rheumatoid Factor Complement C4 Miscellaneous Test Crossmatch 10/15/16 10/15/16 10/15/16 05:06 12:26 17:48 WBC RBC Hgb Hct MCV MCH MCHC RDW Plt Count Lymph % (Auto) [place] % (Auto) Lymph # [place] # Baso # Seg Neutrophils % Seg Neuts % (Manual) Lymphocytes % (Manual) Monocytes % (Manual) Eosinophils % (Manual) Basophils % (Manual) Nucleated RBC % Seg Neutrophils # Seg Neutrophils # Man Lymphocytes # (Manual) Monocytes # (Manual) Eosinophils # (Manual) Basophils # (Manual) PT INR Fibrinogen dRVVT Confirm Interp Factor V Activity POC ABG pH POC ABG pCO2 POC ABG pO2 ABG pO2 ABG HCO3 ABG Base Excess ABG Hemoglobin Oxyhemoglobin Sodium Potassium Chloride Carbon Dioxide BUN Creatinine Glucose POC Glucose 151 H 149 H 153 H Lactic Acid Calcium Phosphorus Magnesium Direct Bilirubin AST ALT Alkaline Phosphatase Lactate Dehydrogenase Troponin T C-Reactive Protein Total Protein Albumin Prealbumin Triglycerides Cholesterol LDL Cholesterol Direct HDL Cholesterol Urine pH Urine WBC (Auto) Urine Creatinine Urine Total Protein Fluid Total Protein Vancomycin Trough Rheumatoid Factor Complement C4 Miscellaneous Test Crossmatch 10/15/16 10/15/16 10/16/16 Unknown Unknown 00:02 WBC 23.4 H RBC 2.78 L Hgb 8.5 L Hct 25.7 L MCV MCH MCHC RDW 18.7 H Plt Count Lymph % (Auto) [place] % (Auto) Lymph # [place] # Baso # Seg Neutrophils % Seg Neuts % (Manual) Lymphocytes % (Manual) Monocytes % (Manual) Eosinophils % (Manual) Basophils % (Manual) Nucleated RBC % Seg Neutrophils # Seg Neutrophils # Man Lymphocytes # (Manual) Monocytes # (Manual) Eosinophils # (Manual) Basophils # (Manual) PT INR Fibrinogen dRVVT Confirm Interp Factor V Activity POC ABG pH POC ABG pCO2 POC ABG pO2 ABG pO2 ABG HCO3 ABG Base Excess ABG Hemoglobin Oxyhemoglobin Sodium Potassium Chloride Carbon Dioxide BUN 73 H Creatinine 2.3 H Glucose 120 H POC Glucose 137 H Lactic Acid Calcium Phosphorus Magnesium Direct Bilirubin AST ALT Alkaline Phosphatase Lactate Dehydrogenase Troponin T C-Reactive Protein Total Protein Albumin Prealbumin Triglycerides Cholesterol LDL Cholesterol Direct HDL Cholesterol Urine pH Urine WBC (Auto) Urine Creatinine Urine Total Protein Fluid Total Protein Vancomycin Trough Rheumatoid Factor Complement C4 Miscellaneous Test Crossmatch 10/16/16 10/16/16 10/16/16 05:44 06:25 06:25 WBC 22.5 H RBC 2.76 L Hgb 8.3 L Hct 25.2 L MCV MCH MCHC RDW 18.3 H Plt Count Lymph % (Auto) [place] % (Auto) Lymph # [place] # Baso # Seg Neutrophils % Seg Neuts % (Manual) Lymphocytes % (Manual) Monocytes % (Manual) Eosinophils % (Manual) Basophils % (Manual) Nucleated RBC % Seg Neutrophils # Seg Neutrophils # Man Lymphocytes # (Manual) Monocytes # (Manual) Eosinophils # (Manual) Basophils # (Manual) PT INR Fibrinogen dRVVT Confirm Interp Factor V Activity POC ABG pH POC ABG pCO2 POC ABG pO2 ABG pO2 ABG HCO3 ABG Base Excess ABG Hemoglobin Oxyhemoglobin Sodium Potassium Chloride Carbon Dioxide BUN 92 H Creatinine 3.0 H Glucose 138 H POC Glucose 110 H Lactic Acid Calcium Phosphorus Magnesium Direct Bilirubin AST ALT Alkaline Phosphatase Lactate Dehydrogenase Troponin T C-Reactive Protein Total Protein Albumin Prealbumin Triglycerides Cholesterol LDL Cholesterol Direct HDL Cholesterol Urine pH Urine WBC (Auto) Urine Creatinine Urine Total Protein Fluid Total Protein Vancomycin Trough Rheumatoid Factor Complement C4 Miscellaneous Test Crossmatch 10/16/16 10/16/16 10/16/16 11:27 11:48 17:36 WBC RBC Hgb Hct MCV MCH MCHC RDW Plt Count Lymph % (Auto) [place] % (Auto) Lymph # [place] # Baso # Seg Neutrophils % Seg Neuts % (Manual) Lymphocytes % (Manual) Monocytes % (Manual) Eosinophils % (Manual) Basophils % (Manual) Nucleated RBC % Seg Neutrophils # Seg Neutrophils # Man Lymphocytes # (Manual) Monocytes # (Manual) Eosinophils # (Manual) Basophils # (Manual) PT INR Fibrinogen dRVVT Confirm Interp Factor V Activity POC ABG pH 7.582 H POC ABG pCO2 27.4 L POC ABG pO2 110 H ABG pO2 ABG HCO3 ABG Base Excess ABG Hemoglobin Oxyhemoglobin Sodium Potassium Chloride Carbon Dioxide BUN Creatinine Glucose POC Glucose 121 H 133 H Lactic Acid Calcium Phosphorus Magnesium Direct Bilirubin AST ALT Alkaline Phosphatase Lactate Dehydrogenase Troponin T C-Reactive Protein Total Protein Albumin Prealbumin Triglycerides Cholesterol LDL Cholesterol Direct HDL Cholesterol Urine pH Urine WBC (Auto) Urine Creatinine Urine Total Protein Fluid Total Protein Vancomycin Trough Rheumatoid Factor Complement C4 Miscellaneous Test Crossmatch 10/16/16 10/17/16 10/17/16 20:48 04:24 04:24 WBC 21.4 H RBC 2.72 L Hgb 8.0 L Hct 25.2 L MCV MCH MCHC RDW 18.0 H Plt Count Lymph % (Auto) [place] % (Auto) Lymph # [place] # Baso # Seg Neutrophils % Seg Neuts % (Manual) Lymphocytes % (Manual) Monocytes % (Manual) Eosinophils % (Manual) Basophils % (Manual) Nucleated RBC % Seg Neutrophils # Seg Neutrophils # Man Lymphocytes # (Manual) Monocytes # (Manual) Eosinophils # (Manual) Basophils # (Manual) PT INR Fibrinogen dRVVT Confirm Interp Factor V Activity POC ABG pH 7.561 H POC ABG pCO2 24.4 L POC ABG pO2 77 L ABG pO2 ABG HCO3 ABG Base Excess ABG Hemoglobin Oxyhemoglobin Sodium 148 H Potassium Chloride Carbon Dioxide BUN 104 H Creatinine 3.0 H Glucose 149 H POC Glucose Lactic Acid Calcium Phosphorus Magnesium Direct Bilirubin AST ALT Alkaline Phosphatase 138 H Lactate Dehydrogenase Troponin T C-Reactive Protein Total Protein 6.2 L Albumin 1.5 L Prealbumin Triglycerides Cholesterol LDL Cholesterol Direct HDL Cholesterol Urine pH Urine WBC (Auto) Urine Creatinine Urine Total Protein Fluid Total Protein Vancomycin Trough Rheumatoid Factor Complement C4 Miscellaneous Test Crossmatch 10/17/16 10/17/16 10/17/16 06:02 12:17 17:14 WBC RBC Hgb Hct MCV MCH MCHC RDW Plt Count Lymph % (Auto) [place] % (Auto) Lymph # [place] # Baso # Seg Neutrophils % Seg Neuts % (Manual) Lymphocytes % (Manual) Monocytes % (Manual) Eosinophils % (Manual) Basophils % (Manual) Nucleated RBC % Seg Neutrophils # Seg Neutrophils # Man Lymphocytes # (Manual) Monocytes # (Manual) Eosinophils # (Manual) Basophils # (Manual) PT INR Fibrinogen dRVVT Confirm Interp Factor V Activity POC ABG pH POC ABG pCO2 POC ABG pO2 ABG pO2 ABG HCO3 ABG Base Excess ABG Hemoglobin Oxyhemoglobin Sodium Potassium Chloride Carbon Dioxide BUN Creatinine Glucose POC Glucose 170 H 167 H 126 H Lactic Acid Calcium Phosphorus Magnesium Direct Bilirubin AST ALT Alkaline Phosphatase Lactate Dehydrogenase Troponin T C-Reactive Protein Total Protein Albumin Prealbumin Triglycerides Cholesterol LDL Cholesterol Direct HDL Cholesterol Urine pH Urine WBC (Auto) Urine Creatinine Urine Total Protein Fluid Total Protein Vancomycin Trough Rheumatoid Factor Complement C4 Miscellaneous Test Crossmatch 10/17/16 10/18/16 10/18/16 23:17 04:00 04:00 WBC 20.7 H RBC 2.47 L Hgb 7.4 L Hct 22.9 L MCV MCH MCHC RDW 17.5 H Plt Count Lymph % (Auto) [place] % (Auto) Lymph # [place] # Baso # Seg Neutrophils % Seg Neuts % (Manual) Lymphocytes % (Manual) Monocytes % (Manual) Eosinophils % (Manual) Basophils % (Manual) Nucleated RBC % Seg Neutrophils # Seg Neutrophils # Man Lymphocytes # (Manual) Monocytes # (Manual) Eosinophils # (Manual) Basophils # (Manual) PT INR Fibrinogen dRVVT Confirm Interp Factor V Activity POC ABG pH POC ABG pCO2 POC ABG pO2 ABG pO2 ABG HCO3 ABG Base Excess ABG Hemoglobin Oxyhemoglobin Sodium 149 H Potassium Chloride 107.9 H Carbon Dioxide 20 L BUN 117 H Creatinine 3.2 H Glucose 119 H POC Glucose 121 H Lactic Acid Calcium Phosphorus Magnesium Direct Bilirubin AST ALT Alkaline Phosphatase Lactate Dehydrogenase Troponin T C-Reactive Protein Total Protein Albumin Prealbumin Triglycerides Cholesterol LDL Cholesterol Direct HDL Cholesterol Urine pH Urine WBC (Auto) Urine Creatinine Urine Total Protein Fluid Total Protein Vancomycin Trough Rheumatoid Factor Complement C4 Miscellaneous Test Crossmatch 10/18/16 10/18/16 10/18/16 05:23 10:46 17:30 WBC RBC Hgb Hct MCV MCH MCHC RDW Plt Count Lymph % (Auto) [place] % (Auto) Lymph # [place] # Baso # Seg Neutrophils % Seg Neuts % (Manual) Lymphocytes % (Manual) Monocytes % (Manual) Eosinophils % (Manual) Basophils % (Manual) Nucleated RBC % Seg Neutrophils # Seg Neutrophils # Man Lymphocytes # (Manual) Monocytes # (Manual) Eosinophils # (Manual) Basophils # (Manual) PT INR Fibrinogen dRVVT Confirm Interp Factor V Activity POC ABG pH POC ABG pCO2 POC ABG pO2 ABG pO2 ABG HCO3 ABG Base Excess ABG Hemoglobin Oxyhemoglobin Sodium Potassium Chloride Carbon Dioxide BUN Creatinine Glucose POC Glucose 119 H 155 H 124 H Lactic Acid Calcium Phosphorus Magnesium Direct Bilirubin AST ALT Alkaline Phosphatase Lactate Dehydrogenase Troponin T C-Reactive Protein Total Protein Albumin Prealbumin Triglycerides Cholesterol LDL Cholesterol Direct HDL Cholesterol Urine pH Urine WBC (Auto) Urine Creatinine Urine Total Protein Fluid Total Protein Vancomycin Trough Rheumatoid Factor Complement C4 Miscellaneous Test Crossmatch 10/19/16 10/19/16 10/19/16 04:00 04:00 05:25 WBC 17.4 H RBC 2.54 L Hgb 7.7 L Hct 23.6 L MCV MCH MCHC RDW 17.3 H Plt Count Lymph % (Auto) [place] % (Auto) Lymph # [place] # Baso # Seg Neutrophils % Seg Neuts % (Manual) Lymphocytes % (Manual) Monocytes % (Manual) Eosinophils % (Manual) Basophils % (Manual) Nucleated RBC % Seg Neutrophils # Seg Neutrophils # Man Lymphocytes # (Manual) Monocytes # (Manual) Eosinophils # (Manual) Basophils # (Manual) PT INR Fibrinogen dRVVT Confirm Interp Factor V Activity POC ABG pH POC ABG pCO2 POC ABG pO2 ABG pO2 ABG HCO3 ABG Base Excess ABG Hemoglobin Oxyhemoglobin Sodium Potassium Chloride Carbon Dioxide BUN 72 H Creatinine 2.1 H Glucose 116 H POC Glucose 119 H Lactic Acid Calcium Phosphorus Magnesium Direct Bilirubin AST ALT Alkaline Phosphatase Lactate Dehydrogenase Troponin T C-Reactive Protein Total Protein Albumin Prealbumin Triglycerides Cholesterol LDL Cholesterol Direct HDL Cholesterol Urine pH Urine WBC (Auto) Urine Creatinine Urine Total Protein Fluid Total Protein Vancomycin Trough Rheumatoid Factor Complement C4 Miscellaneous Test Crossmatch 10/19/16 10/19/16 10/20/16 11:46 23:59 06:00 WBC RBC Hgb Hct MCV MCH MCHC RDW Plt Count Lymph % (Auto) [place] % (Auto) Lymph # [place] # Baso # Seg Neutrophils % Seg Neuts % (Manual) Lymphocytes % (Manual) Monocytes % (Manual) Eosinophils % (Manual) Basophils % (Manual) Nucleated RBC % Seg Neutrophils # Seg Neutrophils # Man Lymphocytes # (Manual) Monocytes # (Manual) Eosinophils # (Manual) Basophils # (Manual) PT INR Fibrinogen dRVVT Confirm Interp Factor V Activity POC ABG pH POC ABG pCO2 POC ABG pO2 ABG pO2 ABG HCO3 ABG Base Excess ABG Hemoglobin Oxyhemoglobin Sodium Potassium Chloride Carbon Dioxide 17 L BUN 94 H Creatinine 2.7 H Glucose POC Glucose 116 H 117 H Lactic Acid Calcium Phosphorus Magnesium Direct Bilirubin AST ALT Alkaline Phosphatase Lactate Dehydrogenase Troponin T C-Reactive Protein Total Protein Albumin Prealbumin Triglycerides Cholesterol LDL Cholesterol Direct HDL Cholesterol Urine pH Urine WBC (Auto) Urine Creatinine Urine Total Protein Fluid Total Protein Vancomycin Trough Rheumatoid Factor Complement C4 Miscellaneous Test Crossmatch 10/20/16 10/20/16 10/20/16 06:00 11:49 16:00 WBC 19.7 H RBC 2.51 L Hgb 7.7 L Hct 23.5 L MCV MCH MCHC RDW 17.5 H Plt Count Lymph % (Auto) [place] % (Auto) Lymph # [place] # Baso # Seg Neutrophils % Seg Neuts % (Manual) Lymphocytes % (Manual) Monocytes % (Manual) Eosinophils % (Manual) Basophils % (Manual) Nucleated RBC % Seg Neutrophils # Seg Neutrophils # Man Lymphocytes # (Manual) Monocytes # (Manual) Eosinophils # (Manual) Basophils # (Manual) PT INR Fibrinogen dRVVT Confirm Interp Factor V Activity POC ABG pH POC ABG pCO2 POC ABG pO2 ABG pO2 ABG HCO3 ABG Base Excess ABG Hemoglobin Oxyhemoglobin Sodium Potassium Chloride Carbon Dioxide BUN Creatinine Glucose POC Glucose 117 H Lactic Acid Calcium Phosphorus Magnesium Direct Bilirubin AST ALT Alkaline Phosphatase Lactate Dehydrogenase Troponin T C-Reactive Protein Total Protein Albumin Prealbumin Triglycerides Cholesterol LDL Cholesterol Direct HDL Cholesterol Urine pH Urine WBC (Auto) Urine Creatinine Urine Total Protein Fluid Total Protein Vancomycin Trough Rheumatoid Factor Complement C4 Miscellaneous Test Flexitest 1 H Crossmatch 10/20/16 10/20/16 10/21/16 18:36 23:39 04:00 WBC RBC Hgb Hct MCV MCH MCHC RDW Plt Count Lymph % (Auto) [place] % (Auto) Lymph # [place] # Baso # Seg Neutrophils % Seg Neuts % (Manual) Lymphocytes % (Manual) Monocytes % (Manual) Eosinophils % (Manual) Basophils % (Manual) Nucleated RBC % Seg Neutrophils # Seg Neutrophils # Man Lymphocytes # (Manual) Monocytes # (Manual) Eosinophils # (Manual) Basophils # (Manual) PT INR Fibrinogen dRVVT Confirm Interp Factor V Activity POC ABG pH POC ABG pCO2 POC ABG pO2 ABG pO2 ABG HCO3 ABG Base Excess ABG Hemoglobin Oxyhemoglobin Sodium Potassium 5.4 H D Chloride Carbon Dioxide 15 L BUN 110 H Creatinine 3.0 H Glucose POC Glucose 127 H 114 H Lactic Acid Calcium Phosphorus Magnesium Direct Bilirubin AST ALT Alkaline Phosphatase Lactate Dehydrogenase Troponin T C-Reactive Protein Total Protein Albumin Prealbumin Triglycerides Cholesterol LDL Cholesterol Direct HDL Cholesterol Urine pH Urine WBC (Auto) Urine Creatinine Urine Total Protein Fluid Total Protein Vancomycin Trough Rheumatoid Factor Complement C4 Miscellaneous Test Crossmatch 10/21/16 10/21/16 10/22/16 05:54 23:46 05:18 WBC RBC Hgb Hct MCV MCH MCHC RDW Plt Count Lymph % (Auto) [place] % (Auto) Lymph # [place] # Baso # Seg Neutrophils % Seg Neuts % (Manual) Lymphocytes % (Manual) Monocytes % (Manual) Eosinophils % (Manual) Basophils % (Manual) Nucleated RBC % Seg Neutrophils # Seg Neutrophils # Man Lymphocytes # (Manual) Monocytes # (Manual) Eosinophils # (Manual) Basophils # (Manual) PT INR Fibrinogen dRVVT Confirm Interp Factor V Activity POC ABG pH POC ABG pCO2 POC ABG pO2 ABG pO2 ABG HCO3 ABG Base Excess ABG Hemoglobin Oxyhemoglobin Sodium Potassium Chloride Carbon Dioxide BUN Creatinine Glucose POC Glucose 119 H 108 H 109 H Lactic Acid Calcium Phosphorus Magnesium Direct Bilirubin AST ALT Alkaline Phosphatase Lactate Dehydrogenase Troponin T C-Reactive Protein Total Protein Albumin Prealbumin Triglycerides Cholesterol LDL Cholesterol Direct HDL Cholesterol Urine pH Urine WBC (Auto) Urine Creatinine Urine Total Protein Fluid Total Protein Vancomycin Trough Rheumatoid Factor Complement C4 Miscellaneous Test Crossmatch 10/22/16 10/22/16 10/22/16 06:40 06:40 06:40 WBC 14.0 H RBC 2.03 L Hgb 7.0 L Hct 20.5 L MCV 98 H MCH 34 H MCHC 35 H RDW 17.8 H Plt Count Lymph % (Auto) [place] % (Auto) 9.9 H Lymph # [place] # 1.4 H Baso # 0.2 H Seg Neutrophils % 72.0 H Seg Neuts % (Manual) Lymphocytes % (Manual) Monocytes % (Manual) Eosinophils % (Manual) Basophils % (Manual) Nucleated RBC % Seg Neutrophils # 10.0 H Seg Neutrophils # Man Lymphocytes # (Manual) Monocytes # (Manual) Eosinophils # (Manual) Basophils # (Manual) PT INR Fibrinogen dRVVT Confirm Interp Factor V Activity POC ABG pH POC ABG pCO2 POC ABG pO2 ABG pO2 ABG HCO3 ABG Base Excess ABG Hemoglobin Oxyhemoglobin Sodium 130 L D Potassium Chloride 92.4 L Carbon Dioxide 20 L BUN 50 H Creatinine 1.6 H Glucose 589 H* POC Glucose Lactic Acid Calcium 7.8 L D Phosphorus Magnesium 1.60 L Direct Bilirubin AST ALT Alkaline Phosphatase Lactate Dehydrogenase Troponin T C-Reactive Protein Total Protein Albumin Prealbumin Triglycerides Cholesterol LDL Cholesterol Direct HDL Cholesterol Urine pH Urine WBC (Auto) Urine Creatinine Urine Total Protein Fluid Total Protein Vancomycin Trough Rheumatoid Factor Complement C4 Miscellaneous Test Crossmatch 10/22/16 10/22/16 10/22/16 11:39 16:44 23:36 WBC RBC Hgb Hct MCV MCH MCHC RDW Plt Count Lymph % (Auto) [place] % (Auto) Lymph # [place] # Baso # Seg Neutrophils % Seg Neuts % (Manual) Lymphocytes % (Manual) Monocytes % (Manual) Eosinophils % (Manual) Basophils % (Manual) Nucleated RBC % Seg Neutrophils # Seg Neutrophils # Man Lymphocytes # (Manual) Monocytes # (Manual) Eosinophils # (Manual) Basophils # (Manual) PT INR Fibrinogen dRVVT Confirm Interp Factor V Activity POC ABG pH POC ABG pCO2 POC ABG pO2 ABG pO2 ABG HCO3 ABG Base Excess ABG Hemoglobin Oxyhemoglobin Sodium Potassium Chloride Carbon Dioxide BUN Creatinine Glucose POC Glucose 142 H 163 H 123 H Lactic Acid Calcium Phosphorus Magnesium Direct Bilirubin AST ALT Alkaline Phosphatase Lactate Dehydrogenase Troponin T C-Reactive Protein Total Protein Albumin Prealbumin Triglycerides Cholesterol LDL Cholesterol Direct HDL Cholesterol Urine pH Urine WBC (Auto) Urine Creatinine Urine Total Protein Fluid Total Protein Vancomycin Trough Rheumatoid Factor Complement C4 Miscellaneous Test Crossmatch 10/23/16 10/23/16 10/23/16 04:58 06:00 12:12 WBC RBC Hgb Hct MCV MCH MCHC RDW Plt Count Lymph % (Auto) [place] % (Auto) Lymph # [place] # Baso # Seg Neutrophils % Seg Neuts % (Manual) Lymphocytes % (Manual) Monocytes % (Manual) Eosinophils % (Manual) Basophils % (Manual) Nucleated RBC % Seg Neutrophils # Seg Neutrophils # Man Lymphocytes # (Manual) Monocytes # (Manual) Eosinophils # (Manual) Basophils # (Manual) PT INR Fibrinogen dRVVT Confirm Interp Factor V Activity POC ABG pH POC ABG pCO2 POC ABG pO2 ABG pO2 ABG HCO3 ABG Base Excess ABG Hemoglobin Oxyhemoglobin Sodium 133 L Potassium 3.5 L Chloride 96.1 L Carbon Dioxide 18 L BUN 76 H Creatinine 2.1 H Glucose POC Glucose 133 H 138 H Lactic Acid Calcium 8.3 L Phosphorus Magnesium Direct Bilirubin AST ALT Alkaline Phosphatase Lactate Dehydrogenase Troponin T C-Reactive Protein Total Protein Albumin Prealbumin Triglycerides Cholesterol LDL Cholesterol Direct HDL Cholesterol Urine pH Urine WBC (Auto) Urine Creatinine Urine Total Protein Fluid Total Protein Vancomycin Trough Rheumatoid Factor Complement C4 Miscellaneous Test Crossmatch 10/23/16 10/23/16 10/24/16 16:53 23:37 04:00 WBC RBC Hgb Hct MCV MCH MCHC RDW Plt Count Lymph % (Auto) [place] % (Auto) Lymph # [place] # Baso # Seg Neutrophils % Seg Neuts % (Manual) Lymphocytes % (Manual) Monocytes % (Manual) Eosinophils % (Manual) Basophils % (Manual) Nucleated RBC % Seg Neutrophils # Seg Neutrophils # Man Lymphocytes # (Manual) Monocytes # (Manual) Eosinophils # (Manual) Basophils # (Manual) PT INR Fibrinogen dRVVT Confirm Interp Factor V Activity POC ABG pH POC ABG pCO2 POC ABG pO2 ABG pO2 ABG HCO3 ABG Base Excess ABG Hemoglobin Oxyhemoglobin Sodium 131 L Potassium Chloride 94.5 L Carbon Dioxide 19 L BUN 97 H Creatinine 2.6 H Glucose 110 H POC Glucose 125 H 123 H Lactic Acid Calcium 8.3 L Phosphorus Magnesium Direct Bilirubin AST ALT Alkaline Phosphatase Lactate Dehydrogenase Troponin T C-Reactive Protein Total Protein Albumin Prealbumin Triglycerides Cholesterol LDL Cholesterol Direct HDL Cholesterol Urine pH Urine WBC (Auto) Urine Creatinine Urine Total Protein Fluid Total Protein Vancomycin Trough Rheumatoid Factor Complement C4 Miscellaneous Test Crossmatch 10/24/16 10/24/16 10/24/16 07:49 11:39 17:52 WBC RBC Hgb 6.0 L Hct 19.7 L* MCV MCH MCHC RDW Plt Count Lymph % (Auto) [place] % (Auto) Lymph # [place] # Baso # Seg Neutrophils % Seg Neuts % (Manual) Lymphocytes % (Manual) Monocytes % (Manual) Eosinophils % (Manual) Basophils % (Manual) Nucleated RBC % Seg Neutrophils # Seg Neutrophils # Man Lymphocytes # (Manual) Monocytes # (Manual) Eosinophils # (Manual) Basophils # (Manual) PT INR Fibrinogen dRVVT Confirm Interp Factor V Activity POC ABG pH POC ABG pCO2 POC ABG pO2 ABG pO2 ABG HCO3 ABG Base Excess ABG Hemoglobin Oxyhemoglobin Sodium Potassium Chloride Carbon Dioxide BUN Creatinine Glucose POC Glucose 106 H 158 H Lactic Acid Calcium Phosphorus Magnesium Direct Bilirubin AST ALT Alkaline Phosphatase Lactate Dehydrogenase Troponin T C-Reactive Protein Total Protein Albumin Prealbumin Triglycerides Cholesterol LDL Cholesterol Direct HDL Cholesterol Urine pH Urine WBC (Auto) Urine Creatinine Urine Total Protein Fluid Total Protein Vancomycin Trough Rheumatoid Factor Complement C4 Miscellaneous Test Crossmatch 10/24/16 10/24/16 10/24/16 20:00 22:27 Unknown WBC RBC Hgb 9.4 L D Hct 27.5 L D MCV MCH MCHC RDW Plt Count Lymph % (Auto) [place] % (Auto) Lymph # [place] # Baso # Seg Neutrophils % Seg Neuts % (Manual) Lymphocytes % (Manual) Monocytes % (Manual) Eosinophils % (Manual) Basophils % (Manual) Nucleated RBC % Seg Neutrophils # Seg Neutrophils # Man Lymphocytes # (Manual) Monocytes # (Manual) Eosinophils # (Manual) Basophils # (Manual) PT INR Fibrinogen dRVVT Confirm Interp Factor V Activity POC ABG pH POC ABG pCO2 POC ABG pO2 ABG pO2 ABG HCO3 ABG Base Excess ABG Hemoglobin Oxyhemoglobin Sodium Potassium Chloride Carbon Dioxide BUN Creatinine Glucose POC Glucose 125 H Lactic Acid Calcium Phosphorus Magnesium Direct Bilirubin AST ALT Alkaline Phosphatase Lactate Dehydrogenase Troponin T C-Reactive Protein Total Protein Albumin Prealbumin Triglycerides Cholesterol LDL Cholesterol Direct HDL Cholesterol Urine pH Urine WBC (Auto) Urine Creatinine Urine Total Protein Fluid Total Protein Vancomycin Trough Rheumatoid Factor Complement C4 Miscellaneous Test Crossmatch See Detail 10/25/16 10/25/16 10/25/16 04:00 04:00 04:00 WBC 14.2 H RBC 2.98 L Hgb 9.0 L Hct 26.2 L MCV MCH MCHC RDW 16.6 H Plt Count Lymph % (Auto) [place] % (Auto) 10.7 H Lymph # [place] # 1.5 H Baso # Seg Neutrophils % 73.6 H Seg Neuts % (Manual) Lymphocytes % (Manual) Monocytes % (Manual) Eosinophils % (Manual) Basophils % (Manual) Nucleated RBC % Seg Neutrophils # 10.5 H Seg Neutrophils # Man Lymphocytes # (Manual) Monocytes # (Manual) Eosinophils # (Manual) Basophils # (Manual) PT INR Fibrinogen dRVVT Confirm Interp Factor V Activity POC ABG pH POC ABG pCO2 POC ABG pO2 ABG pO2 ABG HCO3 ABG Base Excess ABG Hemoglobin Oxyhemoglobin Sodium 132 L Potassium Chloride 94.7 L Carbon Dioxide BUN 51 H Creatinine 1.6 H Glucose 130 H POC Glucose Lactic Acid Calcium 8.3 L Phosphorus 1.60 L D Magnesium Direct Bilirubin AST ALT Alkaline Phosphatase Lactate Dehydrogenase Troponin T C-Reactive Protein Total Protein Albumin Prealbumin Triglycerides Cholesterol LDL Cholesterol Direct HDL Cholesterol Urine pH Urine WBC (Auto) Urine Creatinine Urine Total Protein Fluid Total Protein Vancomycin Trough Rheumatoid Factor Complement C4 Miscellaneous Test Crossmatch 10/25/16 10/25/16 10/25/16 04:32 11:48 17:22 WBC RBC Hgb Hct MCV MCH MCHC RDW Plt Count Lymph % (Auto) [place] % (Auto) Lymph # [place] # Baso # Seg Neutrophils % Seg Neuts % (Manual) Lymphocytes % (Manual) Monocytes % (Manual) Eosinophils % (Manual) Basophils % (Manual) Nucleated RBC % Seg Neutrophils # Seg Neutrophils # Man Lymphocytes # (Manual) Monocytes # (Manual) Eosinophils # (Manual) Basophils # (Manual) PT INR Fibrinogen dRVVT Confirm Interp Factor V Activity POC ABG pH POC ABG pCO2 POC ABG pO2 ABG pO2 ABG HCO3 ABG Base Excess ABG Hemoglobin Oxyhemoglobin Sodium Potassium Chloride Carbon Dioxide BUN Creatinine Glucose POC Glucose 124 H 171 H 120 H Lactic Acid Calcium Phosphorus Magnesium Direct Bilirubin AST ALT Alkaline Phosphatase Lactate Dehydrogenase Troponin T C-Reactive Protein Total Protein Albumin Prealbumin Triglycerides Cholesterol LDL Cholesterol Direct HDL Cholesterol Urine pH Urine WBC (Auto) Urine Creatinine Urine Total Protein Fluid Total Protein Vancomycin Trough Rheumatoid Factor Complement C4 Miscellaneous Test Crossmatch 10/26/16 10/26/16 10/26/16 04:54 07:06 07:06 WBC 16.9 H RBC 3.06 L Hgb 9.1 L Hct 26.9 L MCV MCH MCHC RDW 16.9 H Plt Count Lymph % (Auto) [place] % (Auto) Lymph # [place] # Baso # Seg Neutrophils % Seg Neuts % (Manual) 71.0 H Lymphocytes % (Manual) 5.0 L Monocytes % (Manual) 12.0 H Eosinophils % (Manual) Basophils % (Manual) Nucleated RBC % Seg Neutrophils # Seg Neutrophils # Man 12.0 H Lymphocytes # (Manual) 0.8 L Monocytes # (Manual) 2.0 H Eosinophils # (Manual) Basophils # (Manual) PT INR Fibrinogen dRVVT Confirm Interp Factor V Activity POC ABG pH POC ABG pCO2 POC ABG pO2 ABG pO2 ABG HCO3 ABG Base Excess ABG Hemoglobin Oxyhemoglobin Sodium 135 L Potassium Chloride 97.1 L Carbon Dioxide BUN 73 H Creatinine 2.2 H Glucose 117 H POC Glucose 123 H Lactic Acid Calcium Phosphorus 1.70 L Magnesium Direct Bilirubin AST ALT Alkaline Phosphatase Lactate Dehydrogenase Troponin T C-Reactive Protein Total Protein Albumin Prealbumin Triglycerides Cholesterol LDL Cholesterol Direct HDL Cholesterol Urine pH Urine WBC (Auto) Urine Creatinine Urine Total Protein Fluid Total Protein Vancomycin Trough Rheumatoid Factor Complement C4 Miscellaneous Test Crossmatch 10/26/16 10/26/16 10/26/16 12:12 17:29 23:42 WBC RBC Hgb Hct MCV MCH MCHC RDW Plt Count Lymph % (Auto) [place] % (Auto) Lymph # [place] # Baso # Seg Neutrophils % Seg Neuts % (Manual) Lymphocytes % (Manual) Monocytes % (Manual) Eosinophils % (Manual) Basophils % (Manual) Nucleated RBC % Seg Neutrophils # Seg Neutrophils # Man Lymphocytes # (Manual) Monocytes # (Manual) Eosinophils # (Manual) Basophils # (Manual) PT INR Fibrinogen dRVVT Confirm Interp Factor V Activity POC ABG pH POC ABG pCO2 POC ABG pO2 ABG pO2 ABG HCO3 ABG Base Excess ABG Hemoglobin Oxyhemoglobin Sodium Potassium Chloride Carbon Dioxide BUN Creatinine Glucose POC Glucose 126 H 161 H 118 H Lactic Acid Calcium Phosphorus Magnesium Direct Bilirubin AST ALT Alkaline Phosphatase Lactate Dehydrogenase Troponin T C-Reactive Protein Total Protein Albumin Prealbumin Triglycerides Cholesterol LDL Cholesterol Direct HDL Cholesterol Urine pH Urine WBC (Auto) Urine Creatinine Urine Total Protein Fluid Total Protein Vancomycin Trough Rheumatoid Factor Complement C4 Miscellaneous Test Crossmatch 10/27/16 10/27/16 10/27/16 05:03 06:30 06:30 WBC 13.9 H RBC 3.09 L Hgb 9.2 L Hct 27.5 L MCV MCH MCHC RDW 17.0 H Plt Count Lymph % (Auto) [place] % (Auto) Lymph # [place] # Baso # Seg Neutrophils % Seg Neuts % (Manual) 78.0 H Lymphocytes % (Manual) Monocytes % (Manual) Eosinophils % (Manual) Basophils % (Manual) Nucleated RBC % 2.0 H Seg Neutrophils # Seg Neutrophils # Man 10.8 H Lymphocytes # (Manual) Monocytes # (Manual) 1.0 H Eosinophils # (Manual) Basophils # (Manual) PT INR Fibrinogen dRVVT Confirm Interp Factor V Activity POC ABG pH POC ABG pCO2 POC ABG pO2 ABG pO2 ABG HCO3 ABG Base Excess ABG Hemoglobin Oxyhemoglobin Sodium Potassium Chloride Carbon Dioxide BUN 40 H Creatinine 1.5 H Glucose 135 H POC Glucose 107 H Lactic Acid Calcium 8.3 L Phosphorus 1.30 L D Magnesium Direct Bilirubin AST ALT Alkaline Phosphatase Lactate Dehydrogenase Troponin T C-Reactive Protein Total Protein Albumin Prealbumin Triglycerides Cholesterol LDL Cholesterol Direct HDL Cholesterol Urine pH Urine WBC (Auto) Urine Creatinine Urine Total Protein Fluid Total Protein Vancomycin Trough Rheumatoid Factor Complement C4 Miscellaneous Test Crossmatch 10/27/16 10/27/16 10/27/16 13:27 18:07 23:40 WBC RBC Hgb Hct MCV MCH MCHC RDW Plt Count Lymph % (Auto) [place] % (Auto) Lymph # [place] # Baso # Seg Neutrophils % Seg Neuts % (Manual) Lymphocytes % (Manual) Monocytes % (Manual) Eosinophils % (Manual) Basophils % (Manual) Nucleated RBC % Seg Neutrophils # Seg Neutrophils # Man Lymphocytes # (Manual) Monocytes # (Manual) Eosinophils # (Manual) Basophils # (Manual) PT INR Fibrinogen dRVVT Confirm Interp Factor V Activity POC ABG pH POC ABG pCO2 POC ABG pO2 ABG pO2 ABG HCO3 ABG Base Excess ABG Hemoglobin Oxyhemoglobin Sodium Potassium Chloride Carbon Dioxide BUN Creatinine Glucose POC Glucose 117 H 121 H 118 H Lactic Acid Calcium Phosphorus Magnesium Direct Bilirubin AST ALT Alkaline Phosphatase Lactate Dehydrogenase Troponin T C-Reactive Protein Total Protein Albumin Prealbumin Triglycerides Cholesterol LDL Cholesterol Direct HDL Cholesterol Urine pH Urine WBC (Auto) Urine Creatinine Urine Total Protein Fluid Total Protein Vancomycin Trough Rheumatoid Factor Complement C4 Miscellaneous Test Crossmatch 10/28/16 10/28/16 10/28/16 05:48 06:45 06:45 WBC 14.7 H RBC 3.05 L Hgb 9.0 L Hct 26.9 L MCV MCH MCHC RDW 16.8 H Plt Count Lymph % (Auto) 8.2 L [place] % (Auto) 8.4 H Lymph # [place] # 1.2 H Baso # Seg Neutrophils % 81.9 H Seg Neuts % (Manual) Lymphocytes % (Manual) Monocytes % (Manual) Eosinophils % (Manual) Basophils % (Manual) Nucleated RBC % Seg Neutrophils # 12.1 H Seg Neutrophils # Man Lymphocytes # (Manual) Monocytes # (Manual) Eosinophils # (Manual) Basophils # (Manual) PT INR Fibrinogen dRVVT Confirm Interp Factor V Activity POC ABG pH POC ABG pCO2 POC ABG pO2 ABG pO2 ABG HCO3 ABG Base Excess ABG Hemoglobin Oxyhemoglobin Sodium Potassium Chloride Carbon Dioxide BUN 60 H Creatinine 1.9 H Glucose 120 H POC Glucose 114 H Lactic Acid Calcium Phosphorus Magnesium Direct Bilirubin AST ALT Alkaline Phosphatase Lactate Dehydrogenase Troponin T C-Reactive Protein Total Protein Albumin Prealbumin Triglycerides Cholesterol LDL Cholesterol Direct HDL Cholesterol Urine pH Urine WBC (Auto) Urine Creatinine Urine Total Protein Fluid Total Protein Vancomycin Trough Rheumatoid Factor Complement C4 Miscellaneous Test Crossmatch 10/28/16 10/28/16 10/29/16 17:08 23:50 05:10 WBC RBC Hgb Hct MCV MCH MCHC RDW Plt Count Lymph % (Auto) [place] % (Auto) Lymph # [place] # Baso # Seg Neutrophils % Seg Neuts % (Manual) Lymphocytes % (Manual) Monocytes % (Manual) Eosinophils % (Manual) Basophils % (Manual) Nucleated RBC % Seg Neutrophils # Seg Neutrophils # Man Lymphocytes # (Manual) Monocytes # (Manual) Eosinophils # (Manual) Basophils # (Manual) PT INR Fibrinogen dRVVT Confirm Interp Factor V Activity POC ABG pH POC ABG pCO2 POC ABG pO2 ABG pO2 ABG HCO3 ABG Base Excess ABG Hemoglobin Oxyhemoglobin Sodium Potassium Chloride Carbon Dioxide BUN Creatinine Glucose POC Glucose 109 H 110 H 124 H Lactic Acid Calcium Phosphorus Magnesium Direct Bilirubin AST ALT Alkaline Phosphatase Lactate Dehydrogenase Troponin T C-Reactive Protein Total Protein Albumin Prealbumin Triglycerides Cholesterol LDL Cholesterol Direct HDL Cholesterol Urine pH Urine WBC (Auto) Urine Creatinine Urine Total Protein Fluid Total Protein Vancomycin Trough Rheumatoid Factor Complement C4 Miscellaneous Test Crossmatch 10/29/16 10/29/16 10/29/16 07:45 07:45 12:19 WBC 14.7 H RBC 3.15 L Hgb 9.3 L Hct 28.9 L MCV MCH MCHC RDW 17.0 H Plt Count Lymph % (Auto) 11.9 L [place] % (Auto) 8.6 H Lymph # [place] # 1.3 H Baso # Seg Neutrophils % 78.1 H Seg Neuts % (Manual) Lymphocytes % (Manual) Monocytes % (Manual) Eosinophils % (Manual) Basophils % (Manual) Nucleated RBC % Seg Neutrophils # 11.4 H Seg Neutrophils # Man Lymphocytes # (Manual) Monocytes # (Manual) Eosinophils # (Manual) Basophils # (Manual) PT INR Fibrinogen dRVVT Confirm Interp Factor V Activity POC ABG pH POC ABG pCO2 POC ABG pO2 ABG pO2 ABG HCO3 ABG Base Excess ABG Hemoglobin Oxyhemoglobin Sodium Potassium 5.1 H Chloride Carbon Dioxide 19 L BUN 78 H Creatinine 2.2 H Glucose 116 H POC Glucose 118 H Lactic Acid Calcium Phosphorus Magnesium Direct Bilirubin AST ALT Alkaline Phosphatase Lactate Dehydrogenase Troponin T C-Reactive Protein Total Protein Albumin Prealbumin Triglycerides Cholesterol LDL Cholesterol Direct HDL Cholesterol Urine pH Urine WBC (Auto) Urine Creatinine Urine Total Protein Fluid Total Protein Vancomycin Trough Rheumatoid Factor Complement C4 Miscellaneous Test Crossmatch 10/29/16 10/30/16 10/30/16 17:49 01:52 03:28 WBC RBC Hgb Hct MCV MCH MCHC RDW Plt Count Lymph % (Auto) [place] % (Auto) Lymph # [place] # Baso # Seg Neutrophils % Seg Neuts % (Manual) Lymphocytes % (Manual) Monocytes % (Manual) Eosinophils % (Manual) Basophils % (Manual) Nucleated RBC % Seg Neutrophils # Seg Neutrophils # Man Lymphocytes # (Manual) Monocytes # (Manual) Eosinophils # (Manual) Basophils # (Manual) PT INR Fibrinogen dRVVT Confirm Interp Factor V Activity POC ABG pH POC ABG pCO2 POC ABG pO2 ABG pO2 ABG HCO3 ABG Base Excess ABG Hemoglobin Oxyhemoglobin Sodium Potassium 5.4 H Chloride 97.5 L Carbon Dioxide 19 L BUN 90 H Creatinine 2.5 H Glucose POC Glucose 120 H 129 H Lactic Acid Calcium Phosphorus 5.20 H Magnesium Direct Bilirubin AST ALT Alkaline Phosphatase Lactate Dehydrogenase Troponin T C-Reactive Protein Total Protein Albumin Prealbumin Triglycerides Cholesterol LDL Cholesterol Direct HDL Cholesterol Urine pH Urine WBC (Auto) Urine Creatinine Urine Total Protein Fluid Total Protein Vancomycin Trough Rheumatoid Factor Complement C4 Miscellaneous Test Crossmatch 10/30/16 10/30/16 10/30/16 03:28 08:19 08:19 WBC 11.6 H 15.9 H RBC 2.75 L 2.82 L Hgb 7.9 L 8.3 L Hct 24.2 L 25.2 L MCV MCH MCHC RDW 16.7 H 17.2 H Plt Count Lymph % (Auto) [place] % (Auto) 9.8 H Lymph # [place] # 1.1 H Baso # Seg Neutrophils % 74.2 H Seg Neuts % (Manual) Lymphocytes % (Manual) Monocytes % (Manual) Eosinophils % (Manual) Basophils % (Manual) Nucleated RBC % Seg Neutrophils # 8.6 H Seg Neutrophils # Man Lymphocytes # (Manual) Monocytes # (Manual) Eosinophils # (Manual) Basophils # (Manual) PT INR Fibrinogen dRVVT Confirm Interp Factor V Activity POC ABG pH POC ABG pCO2 POC ABG pO2 ABG pO2 ABG HCO3 ABG Base Excess ABG Hemoglobin Oxyhemoglobin Sodium Potassium 5.3 H Chloride 97.4 L Carbon Dioxide 19 L BUN 93 H Creatinine 2.6 H Glucose POC Glucose Lactic Acid Calcium Phosphorus Magnesium Direct Bilirubin AST ALT Alkaline Phosphatase Lactate Dehydrogenase Troponin T C-Reactive Protein Total Protein Albumin Prealbumin Triglycerides Cholesterol LDL Cholesterol Direct HDL Cholesterol Urine pH Urine WBC (Auto) Urine Creatinine Urine Total Protein Fluid Total Protein Vancomycin Trough Rheumatoid Factor Complement C4 Miscellaneous Test Crossmatch 10/30/16 10/30/16 10/31/16 17:11 23:56 00:40 WBC RBC Hgb Hct MCV MCH MCHC RDW Plt Count Lymph % (Auto) [place] % (Auto) Lymph # [place] # Baso # Seg Neutrophils % Seg Neuts % (Manual) Lymphocytes % (Manual) Monocytes % (Manual) Eosinophils % (Manual) Basophils % (Manual) Nucleated RBC % Seg Neutrophils # Seg Neutrophils # Man Lymphocytes # (Manual) Monocytes # (Manual) Eosinophils # (Manual) Basophils # (Manual) PT INR Fibrinogen dRVVT Confirm Interp Factor V Activity POC ABG pH POC ABG pCO2 POC ABG pO2 ABG pO2 ABG HCO3 ABG Base Excess ABG Hemoglobin Oxyhemoglobin Sodium Potassium Chloride Carbon Dioxide BUN Creatinine Glucose POC Glucose 106 H 117 H 120 H Lactic Acid Calcium Phosphorus Magnesium Direct Bilirubin AST ALT Alkaline Phosphatase Lactate Dehydrogenase Troponin T C-Reactive Protein Total Protein Albumin Prealbumin Triglycerides Cholesterol LDL Cholesterol Direct HDL Cholesterol Urine pH Urine WBC (Auto) Urine Creatinine Urine Total Protein Fluid Total Protein Vancomycin Trough Rheumatoid Factor Complement C4 Miscellaneous Test Crossmatch 10/31/16 10/31/16 10/31/16 05:43 07:15 07:15 WBC 12.1 H RBC 2.63 L Hgb 7.7 L Hct 23.3 L MCV MCH MCHC RDW 16.7 H Plt Count Lymph % (Auto) 11.7 L [place] % (Auto) 7.7 H Lymph # [place] # 0.9 H Baso # Seg Neutrophils % 78.0 H Seg Neuts % (Manual) Lymphocytes % (Manual) Monocytes % (Manual) Eosinophils % (Manual) Basophils % (Manual) Nucleated RBC % Seg Neutrophils # 9.4 H Seg Neutrophils # Man Lymphocytes # (Manual) Monocytes # (Manual) Eosinophils # (Manual) Basophils # (Manual) PT INR Fibrinogen dRVVT Confirm Interp Factor V Activity POC ABG pH POC ABG pCO2 POC ABG pO2 ABG pO2 ABG HCO3 ABG Base Excess ABG Hemoglobin Oxyhemoglobin Sodium Potassium Chloride 96.4 L Carbon Dioxide 21 L BUN 99 H Creatinine 2.6 H Glucose 144 H POC Glucose 125 H Lactic Acid Calcium Phosphorus 4.80 H Magnesium Direct Bilirubin AST ALT Alkaline Phosphatase Lactate Dehydrogenase Troponin T C-Reactive Protein Total Protein Albumin Prealbumin Triglycerides Cholesterol LDL Cholesterol Direct HDL Cholesterol Urine pH Urine WBC (Auto) Urine Creatinine Urine Total Protein Fluid Total Protein Vancomycin Trough Rheumatoid Factor Complement C4 Miscellaneous Test Crossmatch 10/31/16 10/31/16 11/01/16 11:46 18:34 00:20 WBC RBC Hgb Hct MCV MCH MCHC RDW Plt Count Lymph % (Auto) [place] % (Auto) Lymph # [place] # Baso # Seg Neutrophils % Seg Neuts % (Manual) Lymphocytes % (Manual) Monocytes % (Manual) Eosinophils % (Manual) Basophils % (Manual) Nucleated RBC % Seg Neutrophils # Seg Neutrophils # Man Lymphocytes # (Manual) Monocytes # (Manual) Eosinophils # (Manual) Basophils # (Manual) PT INR Fibrinogen dRVVT Confirm Interp Factor V Activity POC ABG pH POC ABG pCO2 POC ABG pO2 ABG pO2 ABG HCO3 ABG Base Excess ABG Hemoglobin Oxyhemoglobin Sodium Potassium Chloride Carbon Dioxide BUN Creatinine Glucose POC Glucose 159 H 140 H 132 H Lactic Acid Calcium Phosphorus Magnesium Direct Bilirubin AST ALT Alkaline Phosphatase Lactate Dehydrogenase Troponin T C-Reactive Protein Total Protein Albumin Prealbumin Triglycerides Cholesterol LDL Cholesterol Direct HDL Cholesterol Urine pH Urine WBC (Auto) Urine Creatinine Urine Total Protein Fluid Total Protein Vancomycin Trough Rheumatoid Factor Complement C4 Miscellaneous Test Crossmatch 11/01/16 11/01/16 11/01/16 04:55 04:55 06:11 WBC 11.2 H RBC 2.68 L Hgb 7.5 L Hct 23.7 L MCV MCH MCHC RDW 16.1 H Plt Count Lymph % (Auto) [place] % (Auto) 9.8 H Lymph # [place] # 1.1 H Baso # Seg Neutrophils % 70.8 H Seg Neuts % (Manual) Lymphocytes % (Manual) Monocytes % (Manual) Eosinophils % (Manual) Basophils % (Manual) Nucleated RBC % Seg Neutrophils # 7.9 H Seg Neutrophils # Man Lymphocytes # (Manual) Monocytes # (Manual) Eosinophils # (Manual) Basophils # (Manual) PT INR Fibrinogen dRVVT Confirm Interp Factor V Activity POC ABG pH POC ABG pCO2 POC ABG pO2 ABG pO2 ABG HCO3 ABG Base Excess ABG Hemoglobin Oxyhemoglobin Sodium Potassium 3.3 L D Chloride Carbon Dioxide BUN 61 H Creatinine 1.9 H Glucose 114 H POC Glucose 115 H Lactic Acid Calcium Phosphorus 1.80 L D Magnesium Direct Bilirubin AST ALT Alkaline Phosphatase Lactate Dehydrogenase Troponin T C-Reactive Protein Total Protein Albumin Prealbumin Triglycerides Cholesterol LDL Cholesterol Direct HDL Cholesterol Urine pH Urine WBC (Auto) Urine Creatinine Urine Total Protein Fluid Total Protein Vancomycin Trough Rheumatoid Factor Complement C4 Miscellaneous Test Crossmatch 11/01/16 11/01/16 11/01/16 12:29 18:23 23:58 WBC RBC Hgb Hct MCV MCH MCHC RDW Plt Count Lymph % (Auto) [place] % (Auto) Lymph # [place] # Baso # Seg Neutrophils % Seg Neuts % (Manual) Lymphocytes % (Manual) Monocytes % (Manual) Eosinophils % (Manual) Basophils % (Manual) Nucleated RBC % Seg Neutrophils # Seg Neutrophils # Man Lymphocytes # (Manual) Monocytes # (Manual) Eosinophils # (Manual) Basophils # (Manual) PT INR Fibrinogen dRVVT Confirm Interp Factor V Activity POC ABG pH POC ABG pCO2 POC ABG pO2 ABG pO2 ABG HCO3 ABG Base Excess ABG Hemoglobin Oxyhemoglobin Sodium Potassium Chloride Carbon Dioxide BUN Creatinine Glucose POC Glucose 142 H 143 H 128 H Lactic Acid Calcium Phosphorus Magnesium Direct Bilirubin AST ALT Alkaline Phosphatase Lactate Dehydrogenase Troponin T C-Reactive Protein Total Protein Albumin Prealbumin Triglycerides Cholesterol LDL Cholesterol Direct HDL Cholesterol Urine pH Urine WBC (Auto) Urine Creatinine Urine Total Protein Fluid Total Protein Vancomycin Trough Rheumatoid Factor Complement C4 Miscellaneous Test Crossmatch 11/02/16 11/02/16 11/02/16 04:16 05:29 11:58 WBC RBC Hgb Hct MCV MCH MCHC RDW Plt Count Lymph % (Auto) [place] % (Auto) Lymph # [place] # Baso # Seg Neutrophils % Seg Neuts % (Manual) Lymphocytes % (Manual) Monocytes % (Manual) Eosinophils % (Manual) Basophils % (Manual) Nucleated RBC % Seg Neutrophils # Seg Neutrophils # Man Lymphocytes # (Manual) Monocytes # (Manual) Eosinophils # (Manual) Basophils # (Manual) PT INR Fibrinogen dRVVT Confirm Interp Factor V Activity POC ABG pH POC ABG pCO2 POC ABG pO2 ABG pO2 ABG HCO3 ABG Base Excess ABG Hemoglobin Oxyhemoglobin Sodium Potassium 3.1 L Chloride Carbon Dioxide BUN 73 H Creatinine 2.3 H Glucose 112 H POC Glucose 135 H 149 H Lactic Acid Calcium Phosphorus Magnesium Direct Bilirubin AST ALT Alkaline Phosphatase Lactate Dehydrogenase Troponin T C-Reactive Protein Total Protein Albumin Prealbumin Triglycerides Cholesterol LDL Cholesterol Direct HDL Cholesterol Urine pH Urine WBC (Auto) Urine Creatinine Urine Total Protein Fluid Total Protein Vancomycin Trough Rheumatoid Factor Complement C4 Miscellaneous Test Crossmatch 11/02/16 11/02/16 11/03/16 17:42 22:54 06:00 WBC RBC Hgb Hct MCV MCH MCHC RDW Plt Count Lymph % (Auto) [place] % (Auto) Lymph # [place] # Baso # Seg Neutrophils % Seg Neuts % (Manual) Lymphocytes % (Manual) Monocytes % (Manual) Eosinophils % (Manual) Basophils % (Manual) Nucleated RBC % Seg Neutrophils # Seg Neutrophils # Man Lymphocytes # (Manual) Monocytes # (Manual) Eosinophils # (Manual) Basophils # (Manual) PT INR Fibrinogen dRVVT Confirm Interp Factor V Activity POC ABG pH POC ABG pCO2 POC ABG pO2 ABG pO2 ABG HCO3 ABG Base Excess ABG Hemoglobin Oxyhemoglobin Sodium Potassium Chloride 96.7 L Carbon Dioxide BUN 41 H Creatinine 1.5 H Glucose 145 H POC Glucose 182 H 115 H Lactic Acid Calcium Phosphorus 1.60 L D Magnesium 1.50 L Direct Bilirubin AST ALT Alkaline Phosphatase Lactate Dehydrogenase Troponin T C-Reactive Protein Total Protein Albumin Prealbumin Triglycerides Cholesterol LDL Cholesterol Direct HDL Cholesterol Urine pH Urine WBC (Auto) Urine Creatinine Urine Total Protein Fluid Total Protein Vancomycin Trough Rheumatoid Factor Complement C4 Miscellaneous Test Crossmatch 11/03/16 11/03/16 11/03/16 11:53 17:45 23:37 WBC RBC Hgb Hct MCV MCH MCHC RDW Plt Count Lymph % (Auto) [place] % (Auto) Lymph # [place] # Baso # Seg Neutrophils % Seg Neuts % (Manual) Lymphocytes % (Manual) Monocytes % (Manual) Eosinophils % (Manual) Basophils % (Manual) Nucleated RBC % Seg Neutrophils # Seg Neutrophils # Man Lymphocytes # (Manual) Monocytes # (Manual) Eosinophils # (Manual) Basophils # (Manual) PT INR Fibrinogen dRVVT Confirm Interp Factor V Activity POC ABG pH POC ABG pCO2 POC ABG pO2 ABG pO2 ABG HCO3 ABG Base Excess ABG Hemoglobin Oxyhemoglobin Sodium Potassium Chloride Carbon Dioxide BUN Creatinine Glucose POC Glucose 131 H 134 H 113 H Lactic Acid Calcium Phosphorus Magnesium Direct Bilirubin AST ALT Alkaline Phosphatase Lactate Dehydrogenase Troponin T C-Reactive Protein Total Protein Albumin Prealbumin Triglycerides Cholesterol LDL Cholesterol Direct HDL Cholesterol Urine pH Urine WBC (Auto) Urine Creatinine Urine Total Protein Fluid Total Protein Vancomycin Trough Rheumatoid Factor Complement C4 Miscellaneous Test Crossmatch 11/04/16 11/04/16 11/04/16 05:41 06:00 12:10 WBC RBC Hgb Hct MCV MCH MCHC RDW Plt Count Lymph % (Auto) [place] % (Auto) Lymph # [place] # Baso # Seg Neutrophils % Seg Neuts % (Manual) Lymphocytes % (Manual) Monocytes % (Manual) Eosinophils % (Manual) Basophils % (Manual) Nucleated RBC % Seg Neutrophils # Seg Neutrophils # Man Lymphocytes # (Manual) Monocytes # (Manual) Eosinophils # (Manual) Basophils # (Manual) PT INR Fibrinogen dRVVT Confirm Interp Factor V Activity POC ABG pH POC ABG pCO2 POC ABG pO2 ABG pO2 ABG HCO3 ABG Base Excess ABG Hemoglobin Oxyhemoglobin Sodium Potassium Chloride 96.7 L Carbon Dioxide BUN 52 H Creatinine 1.9 H Glucose 126 H POC Glucose 137 H 191 H Lactic Acid Calcium Phosphorus Magnesium Direct Bilirubin AST ALT Alkaline Phosphatase Lactate Dehydrogenase Troponin T C-Reactive Protein Total Protein Albumin Prealbumin Triglycerides Cholesterol LDL Cholesterol Direct HDL Cholesterol Urine pH Urine WBC (Auto) Urine Creatinine Urine Total Protein Fluid Total Protein Vancomycin Trough Rheumatoid Factor Complement C4 Miscellaneous Test Crossmatch 11/04/16 11/05/16 11/05/16 22:57 03:10 05:10 WBC RBC Hgb Hct MCV MCH MCHC RDW Plt Count Lymph % (Auto) [place] % (Auto) Lymph # [place] # Baso # Seg Neutrophils % Seg Neuts % (Manual) Lymphocytes % (Manual) Monocytes % (Manual) Eosinophils % (Manual) Basophils % (Manual) Nucleated RBC % Seg Neutrophils # Seg Neutrophils # Man Lymphocytes # (Manual) Monocytes # (Manual) Eosinophils # (Manual) Basophils # (Manual) PT INR Fibrinogen dRVVT Confirm Interp Factor V Activity POC ABG pH POC ABG pCO2 POC ABG pO2 ABG pO2 ABG HCO3 ABG Base Excess ABG Hemoglobin Oxyhemoglobin Sodium 136 L Potassium Chloride 97.2 L Carbon Dioxide BUN 32 H Creatinine 1.3 H Glucose 123 H POC Glucose 125 H 108 H Lactic Acid Calcium 7.8 L Phosphorus Magnesium Direct Bilirubin AST ALT Alkaline Phosphatase Lactate Dehydrogenase Troponin T C-Reactive Protein Total Protein Albumin Prealbumin Triglycerides Cholesterol LDL Cholesterol Direct HDL Cholesterol Urine pH Urine WBC (Auto) Urine Creatinine Urine Total Protein Fluid Total Protein Vancomycin Trough Rheumatoid Factor Complement C4 Miscellaneous Test Crossmatch 11/05/16 11/05/16 11/05/16 12:23 13:09 13:25 WBC RBC Hgb Hct MCV MCH MCHC RDW Plt Count Lymph % (Auto) [place] % (Auto) Lymph # [place] # Baso # Seg Neutrophils % Seg Neuts % (Manual) Lymphocytes % (Manual) Monocytes % (Manual) Eosinophils % (Manual) Basophils % (Manual) Nucleated RBC % Seg Neutrophils # Seg Neutrophils # Man Lymphocytes # (Manual) Monocytes # (Manual) Eosinophils # (Manual) Basophils # (Manual) PT INR Fibrinogen dRVVT Confirm Interp Factor V Activity POC ABG pH POC ABG pCO2 POC ABG pO2 ABG pO2 ABG HCO3 ABG Base Excess ABG Hemoglobin Oxyhemoglobin Sodium Potassium Chloride Carbon Dioxide BUN Creatinine Glucose POC Glucose 124 H Lactic Acid Calcium Phosphorus Magnesium Direct Bilirubin AST ALT Alkaline Phosphatase Lactate Dehydrogenase Troponin T C-Reactive Protein 11.40 H Total Protein Albumin Prealbumin Triglycerides Cholesterol LDL Cholesterol Direct HDL Cholesterol Urine pH 9.0 H Urine WBC (Auto) Urine Creatinine Urine Total Protein Fluid Total Protein Vancomycin Trough Rheumatoid Factor Complement C4 Miscellaneous Test Crossmatch 11/05/16 11/05/16 11/05/16 13:25 17:54 23:42 WBC RBC Hgb Hct MCV MCH MCHC RDW Plt Count Lymph % (Auto) [place] % (Auto) Lymph # [place] # Baso # Seg Neutrophils % Seg Neuts % (Manual) Lymphocytes % (Manual) Monocytes % (Manual) Eosinophils % (Manual) Basophils % (Manual) Nucleated RBC % Seg Neutrophils # Seg Neutrophils # Man Lymphocytes # (Manual) Monocytes # (Manual) Eosinophils # (Manual) Basophils # (Manual) PT INR Fibrinogen dRVVT Confirm Interp Factor V Activity POC ABG pH POC ABG pCO2 POC ABG pO2 ABG pO2 ABG HCO3 ABG Base Excess ABG Hemoglobin Oxyhemoglobin Sodium Potassium Chloride Carbon Dioxide BUN Creatinine Glucose POC Glucose 114 H 134 H Lactic Acid Calcium Phosphorus Magnesium Direct Bilirubin AST ALT Alkaline Phosphatase Lactate Dehydrogenase Troponin T C-Reactive Protein Total Protein Albumin Prealbumin Triglycerides Cholesterol LDL Cholesterol Direct HDL Cholesterol Urine pH Urine WBC (Auto) Urine Creatinine Urine Total Protein Fluid Total Protein Vancomycin Trough Rheumatoid Factor Complement C4 Miscellaneous Test Flexitest 1 H Crossmatch 11/06/16 11/06/16 11/06/16 04:56 06:25 06:25 WBC RBC 2.50 L Hgb 7.3 L Hct 22.5 L MCV MCH MCHC RDW 16.9 H Plt Count Lymph % (Auto) [place] % (Auto) 10.5 H Lymph # [place] # 1.1 H Baso # Seg Neutrophils % Seg Neuts % (Manual) Lymphocytes % (Manual) Monocytes % (Manual) Eosinophils % (Manual) Basophils % (Manual) Nucleated RBC % Seg Neutrophils # Seg Neutrophils # Man Lymphocytes # (Manual) Monocytes # (Manual) Eosinophils # (Manual) Basophils # (Manual) PT INR Fibrinogen dRVVT Confirm Interp Factor V Activity POC ABG pH POC ABG pCO2 POC ABG pO2 ABG pO2 ABG HCO3 ABG Base Excess ABG Hemoglobin Oxyhemoglobin Sodium Potassium 5.1 H Chloride 95.9 L Carbon Dioxide BUN 52 H Creatinine 1.8 H Glucose 117 H POC Glucose 120 H Lactic Acid Calcium Phosphorus Magnesium Direct Bilirubin AST 103 H ALT 77 H Alkaline Phosphatase 285 H Lactate Dehydrogenase Troponin T C-Reactive Protein Total Protein 6.2 L Albumin 1.8 L Prealbumin 0.180 L Triglycerides Cholesterol LDL Cholesterol Direct HDL Cholesterol Urine pH Urine WBC (Auto) Urine Creatinine Urine Total Protein Fluid Total Protein Vancomycin Trough Rheumatoid Factor Complement C4 Miscellaneous Test Crossmatch 11/06/16 11/06/16 11/06/16 11:56 17:14 23:52 WBC RBC Hgb Hct MCV MCH MCHC RDW Plt Count Lymph % (Auto) [place] % (Auto) Lymph # [place] # Baso # Seg Neutrophils % Seg Neuts % (Manual) Lymphocytes % (Manual) Monocytes % (Manual) Eosinophils % (Manual) Basophils % (Manual) Nucleated RBC % Seg Neutrophils # Seg Neutrophils # Man Lymphocytes # (Manual) Monocytes # (Manual) Eosinophils # (Manual) Basophils # (Manual) PT INR Fibrinogen dRVVT Confirm Interp Factor V Activity POC ABG pH POC ABG pCO2 POC ABG pO2 ABG pO2 ABG HCO3 ABG Base Excess ABG Hemoglobin Oxyhemoglobin Sodium Potassium Chloride Carbon Dioxide BUN Creatinine Glucose POC Glucose 141 H 125 H 130 H Lactic Acid Calcium Phosphorus Magnesium Direct Bilirubin AST ALT Alkaline Phosphatase Lactate Dehydrogenase Troponin T C-Reactive Protein Total Protein Albumin Prealbumin Triglycerides Cholesterol LDL Cholesterol Direct HDL Cholesterol Urine pH Urine WBC (Auto) Urine Creatinine Urine Total Protein Fluid Total Protein Vancomycin Trough Rheumatoid Factor Complement C4 Miscellaneous Test Crossmatch 11/07/16 11/07/16 11/07/16 06:30 06:30 09:37 WBC RBC 2.18 L Hgb 6.3 L Hct 19.7 L* MCV MCH MCHC RDW 16.8 H Plt Count Lymph % (Auto) [place] % (Auto) 10.0 H Lymph # [place] # 1.0 H Baso # Seg Neutrophils % Seg Neuts % (Manual) Lymphocytes % (Manual) Monocytes % (Manual) Eosinophils % (Manual) Basophils % (Manual) Nucleated RBC % Seg Neutrophils # Seg Neutrophils # Man Lymphocytes # (Manual) Monocytes # (Manual) Eosinophils # (Manual) Basophils # (Manual) PT INR Fibrinogen dRVVT Confirm Interp Factor V Activity POC ABG pH POC ABG pCO2 POC ABG pO2 ABG pO2 ABG HCO3 ABG Base Excess ABG Hemoglobin Oxyhemoglobin Sodium 135 L Potassium Chloride 95.6 L Carbon Dioxide BUN 70 H Creatinine 2.0 H Glucose 126 H POC Glucose Lactic Acid Calcium Phosphorus Magnesium Direct Bilirubin AST ALT Alkaline Phosphatase Lactate Dehydrogenase Troponin T C-Reactive Protein Total Protein Albumin Prealbumin Triglycerides Cholesterol LDL Cholesterol Direct HDL Cholesterol Urine pH Urine WBC (Auto) Urine Creatinine Urine Total Protein Fluid Total Protein Vancomycin Trough Rheumatoid Factor Complement C4 Miscellaneous Test Crossmatch See Detail 11/07/16 11/07/16 11/07/16 12:52 18:51 21:26 WBC RBC Hgb Hct MCV MCH MCHC RDW Plt Count Lymph % (Auto) [place] % (Auto) Lymph # [place] # Baso # Seg Neutrophils % Seg Neuts % (Manual) Lymphocytes % (Manual) Monocytes % (Manual) Eosinophils % (Manual) Basophils % (Manual) Nucleated RBC % Seg Neutrophils # Seg Neutrophils # Man Lymphocytes # (Manual) Monocytes # (Manual) Eosinophils # (Manual) Basophils # (Manual) PT INR Fibrinogen dRVVT Confirm Interp Factor V Activity POC ABG pH 7.523 H POC ABG pCO2 34.6 L POC ABG pO2 53 L ABG pO2 ABG HCO3 ABG Base Excess ABG Hemoglobin Oxyhemoglobin Sodium Potassium Chloride Carbon Dioxide BUN Creatinine Glucose POC Glucose 142 H 155 H Lactic Acid Calcium Phosphorus Magnesium Direct Bilirubin AST ALT Alkaline Phosphatase Lactate Dehydrogenase Troponin T C-Reactive Protein Total Protein Albumin Prealbumin Triglycerides Cholesterol LDL Cholesterol Direct HDL Cholesterol Urine pH Urine WBC (Auto) Urine Creatinine Urine Total Protein Fluid Total Protein Vancomycin Trough Rheumatoid Factor Complement C4 Miscellaneous Test Crossmatch 11/07/16 11/08/16 11/08/16 21:34 13:03 23:37 WBC RBC 2.63 L Hgb 7.7 L Hct 22.7 L MCV MCH MCHC RDW 17.0 H Plt Count Lymph % (Auto) [place] % (Auto) Lymph # [place] # Baso # Seg Neutrophils % Seg Neuts % (Manual) Lymphocytes % (Manual) Monocytes % (Manual) Eosinophils % (Manual) Basophils % (Manual) Nucleated RBC % Seg Neutrophils # Seg Neutrophils # Man Lymphocytes # (Manual) Monocytes # (Manual) Eosinophils # (Manual) Basophils # (Manual) PT INR Fibrinogen dRVVT Confirm Interp Factor V Activity POC ABG pH 7.478 H POC ABG pCO2 34.0 L POC ABG pO2 50 L ABG pO2 ABG HCO3 ABG Base Excess ABG Hemoglobin Oxyhemoglobin Sodium Potassium Chloride Carbon Dioxide BUN Creatinine Glucose POC Glucose 113 H Lactic Acid Calcium Phosphorus Magnesium Direct Bilirubin AST ALT Alkaline Phosphatase Lactate Dehydrogenase Troponin T C-Reactive Protein Total Protein Albumin Prealbumin Triglycerides Cholesterol LDL Cholesterol Direct HDL Cholesterol Urine pH Urine WBC (Auto) Urine Creatinine Urine Total Protein Fluid Total Protein Vancomycin Trough Rheumatoid Factor Complement C4 Miscellaneous Test Crossmatch 11/09/16 11/09/16 11/09/16 04:35 10:15 18:21 WBC RBC 2.68 L Hgb 7.8 L Hct 23.3 L MCV MCH MCHC RDW 17.0 H Plt Count Lymph % (Auto) [place] % (Auto) 12.1 H Lymph # [place] # 1.1 H Baso # Seg Neutrophils % Seg Neuts % (Manual) Lymphocytes % (Manual) Monocytes % (Manual) Eosinophils % (Manual) Basophils % (Manual) Nucleated RBC % Seg Neutrophils # Seg Neutrophils # Man Lymphocytes # (Manual) Monocytes # (Manual) Eosinophils # (Manual) Basophils # (Manual) PT INR Fibrinogen dRVVT Confirm Interp Factor V Activity POC ABG pH POC ABG pCO2 POC ABG pO2 ABG pO2 ABG HCO3 ABG Base Excess ABG Hemoglobin Oxyhemoglobin Sodium Potassium Chloride Carbon Dioxide BUN 51 H Creatinine 1.8 H Glucose POC Glucose 60 L Lactic Acid Calcium 8.3 L Phosphorus Magnesium Direct Bilirubin AST ALT Alkaline Phosphatase Lactate Dehydrogenase Troponin T C-Reactive Protein Total Protein Albumin Prealbumin Triglycerides Cholesterol LDL Cholesterol Direct HDL Cholesterol Urine pH Urine WBC (Auto) Urine Creatinine Urine Total Protein Fluid Total Protein Vancomycin Trough Rheumatoid Factor Complement C4 Miscellaneous Test Crossmatch 11/09/16 11/10/16 11/10/16 18:55 07:00 11:51 WBC RBC Hgb Hct MCV MCH MCHC RDW Plt Count Lymph % (Auto) [place] % (Auto) Lymph # [place] # Baso # Seg Neutrophils % Seg Neuts % (Manual) Lymphocytes % (Manual) Monocytes % (Manual) Eosinophils % (Manual) Basophils % (Manual) Nucleated RBC % Seg Neutrophils # Seg Neutrophils # Man Lymphocytes # (Manual) Monocytes # (Manual) Eosinophils # (Manual) Basophils # (Manual) PT INR Fibrinogen dRVVT Confirm Interp Factor V Activity POC ABG pH POC ABG pCO2 POC ABG pO2 ABG pO2 ABG HCO3 ABG Base Excess ABG Hemoglobin Oxyhemoglobin Sodium Potassium 3.0 L D Chloride 97.4 L Carbon Dioxide BUN 28 H Creatinine 1.3 H Glucose POC Glucose 68 L 120 H Lactic Acid Calcium 7.8 L Phosphorus Magnesium Direct Bilirubin AST ALT Alkaline Phosphatase Lactate Dehydrogenase Troponin T C-Reactive Protein Total Protein Albumin Prealbumin Triglycerides Cholesterol LDL Cholesterol Direct HDL Cholesterol Urine pH Urine WBC (Auto) Urine Creatinine Urine Total Protein Fluid Total Protein Vancomycin Trough Rheumatoid Factor Complement C4 Miscellaneous Test Crossmatch 11/10/16 11/11/16 11/11/16 14:20 06:59 06:59 WBC RBC 2.81 L Hgb 8.1 L Hct 24.4 L MCV MCH MCHC RDW 16.4 H Plt Count Lymph % (Auto) [place] % (Auto) 10.8 H Lymph # [place] # 1.0 H Baso # Seg Neutrophils % Seg Neuts % (Manual) Lymphocytes % (Manual) Monocytes % (Manual) Eosinophils % (Manual) Basophils % (Manual) Nucleated RBC % Seg Neutrophils # Seg Neutrophils # Man Lymphocytes # (Manual) Monocytes # (Manual) Eosinophils # (Manual) Basophils # (Manual) PT INR Fibrinogen dRVVT Confirm Interp Factor V Activity POC ABG pH POC ABG pCO2 POC ABG pO2 ABG pO2 ABG HCO3 ABG Base Excess ABG Hemoglobin Oxyhemoglobin Sodium Potassium Chloride Carbon Dioxide BUN Creatinine Glucose POC Glucose Lactic Acid Calcium Phosphorus Magnesium Direct Bilirubin AST ALT Alkaline Phosphatase Lactate Dehydrogenase 196 H Troponin T C-Reactive Protein Total Protein 6.1 L Albumin Prealbumin Triglycerides Cholesterol LDL Cholesterol Direct HDL Cholesterol Urine pH Urine WBC (Auto) Urine Creatinine Urine Total Protein Fluid Total Protein < 3.0 L Vancomycin Trough Rheumatoid Factor Complement C4 Miscellaneous Test Crossmatch 11/11/16 11/11/16 11/12/16 06:59 09:50 04:00 WBC RBC Hgb Hct MCV MCH MCHC RDW Plt Count Lymph % (Auto) [place] % (Auto) Lymph # [place] # Baso # Seg Neutrophils % Seg Neuts % (Manual) Lymphocytes % (Manual) Monocytes % (Manual) Eosinophils % (Manual) Basophils % (Manual) Nucleated RBC % Seg Neutrophils # Seg Neutrophils # Man Lymphocytes # (Manual) Monocytes # (Manual) Eosinophils # (Manual) Basophils # (Manual) PT INR 1.18 H Fibrinogen dRVVT Confirm Interp Factor V Activity POC ABG pH POC ABG pCO2 POC ABG pO2 ABG pO2 ABG HCO3 ABG Base Excess ABG Hemoglobin Oxyhemoglobin Sodium 136 L 133 L Potassium Chloride 96.1 L 94.8 L Carbon Dioxide 21 L BUN 37 H 42 H Creatinine 1.8 H 2.0 H Glucose POC Glucose Lactic Acid Calcium Phosphorus Magnesium Direct Bilirubin AST ALT Alkaline Phosphatase Lactate Dehydrogenase Troponin T C-Reactive Protein Total Protein Albumin Prealbumin Triglycerides Cholesterol LDL Cholesterol Direct HDL Cholesterol Urine pH Urine WBC (Auto) Urine Creatinine Urine Total Protein Fluid Total Protein Vancomycin Trough Rheumatoid Factor Complement C4 Miscellaneous Test Crossmatch 11/12/16 11/12/16 11/13/16 04:00 23:55 05:53 WBC RBC Hgb 8.9 L Hct 27.2 L MCV MCH MCHC RDW Plt Count Lymph % (Auto) [place] % (Auto) Lymph # [place] # Baso # Seg Neutrophils % Seg Neuts % (Manual) Lymphocytes % (Manual) Monocytes % (Manual) Eosinophils % (Manual) Basophils % (Manual) Nucleated RBC % Seg Neutrophils # Seg Neutrophils # Man Lymphocytes # (Manual) Monocytes # (Manual) Eosinophils # (Manual) Basophils # (Manual) PT INR Fibrinogen dRVVT Confirm Interp Factor V Activity POC ABG pH POC ABG pCO2 POC ABG pO2 ABG pO2 ABG HCO3 ABG Base Excess ABG Hemoglobin Oxyhemoglobin Sodium Potassium Chloride Carbon Dioxide BUN Creatinine Glucose POC Glucose 132 H 120 H Lactic Acid Calcium Phosphorus Magnesium Direct Bilirubin AST ALT Alkaline Phosphatase Lactate Dehydrogenase Troponin T C-Reactive Protein Total Protein Albumin Prealbumin Triglycerides Cholesterol LDL Cholesterol Direct HDL Cholesterol Urine pH Urine WBC (Auto) Urine Creatinine Urine Total Protein Fluid Total Protein Vancomycin Trough Rheumatoid Factor Complement C4 Miscellaneous Test Crossmatch 11/13/16 11/13/16 11/13/16 11:43 17:09 23:41 WBC RBC Hgb Hct MCV MCH MCHC RDW Plt Count Lymph % (Auto) [place] % (Auto) Lymph # [place] # Baso # Seg Neutrophils % Seg Neuts % (Manual) Lymphocytes % (Manual) Monocytes % (Manual) Eosinophils % (Manual) Basophils % (Manual) Nucleated RBC % Seg Neutrophils # Seg Neutrophils # Man Lymphocytes # (Manual) Monocytes # (Manual) Eosinophils # (Manual) Basophils # (Manual) PT INR Fibrinogen dRVVT Confirm Interp Factor V Activity POC ABG pH POC ABG pCO2 POC ABG pO2 ABG pO2 ABG HCO3 ABG Base Excess ABG Hemoglobin Oxyhemoglobin Sodium Potassium Chloride Carbon Dioxide BUN Creatinine Glucose POC Glucose 114 H 113 H 108 H Lactic Acid Calcium Phosphorus Magnesium Direct Bilirubin AST ALT Alkaline Phosphatase Lactate Dehydrogenase Troponin T C-Reactive Protein Total Protein Albumin Prealbumin Triglycerides Cholesterol LDL Cholesterol Direct HDL Cholesterol Urine pH Urine WBC (Auto) Urine Creatinine Urine Total Protein Fluid Total Protein Vancomycin Trough Rheumatoid Factor Complement C4 Miscellaneous Test Crossmatch 11/13/16 11/15/16 11/15/16 Unknown 00:37 03:30 WBC 11.2 H RBC 2.72 L Hgb 7.6 L Hct 23.4 L MCV MCH MCHC RDW 16.5 H Plt Count Lymph % (Auto) [place] % (Auto) Lymph # [place] # Baso # Seg Neutrophils % Seg Neuts % (Manual) Lymphocytes % (Manual) Monocytes % (Manual) Eosinophils % (Manual) Basophils % (Manual) Nucleated RBC % Seg Neutrophils # Seg Neutrophils # Man Lymphocytes # (Manual) Monocytes # (Manual) Eosinophils # (Manual) Basophils # (Manual) PT INR Fibrinogen dRVVT Confirm Interp Factor V Activity POC ABG pH POC ABG pCO2 POC ABG pO2 ABG pO2 ABG HCO3 ABG Base Excess ABG Hemoglobin Oxyhemoglobin Sodium 135 L Potassium Chloride 95.2 L Carbon Dioxide BUN 52 H Creatinine 2.2 H Glucose POC Glucose 108 H Lactic Acid Calcium Phosphorus Magnesium Direct Bilirubin AST ALT Alkaline Phosphatase Lactate Dehydrogenase Troponin T C-Reactive Protein Total Protein Albumin Prealbumin Triglycerides Cholesterol LDL Cholesterol Direct HDL Cholesterol Urine pH Urine WBC (Auto) Urine Creatinine Urine Total Protein Fluid Total Protein Vancomycin Trough Rheumatoid Factor Complement C4 Miscellaneous Test Crossmatch 11/15/16 11/15/16 11/15/16 03:30 05:04 11:50 WBC RBC Hgb Hct MCV MCH MCHC RDW Plt Count Lymph % (Auto) [place] % (Auto) Lymph # [place] # Baso # Seg Neutrophils % Seg Neuts % (Manual) Lymphocytes % (Manual) Monocytes % (Manual) Eosinophils % (Manual) Basophils % (Manual) Nucleated RBC % Seg Neutrophils # Seg Neutrophils # Man Lymphocytes # (Manual) Monocytes # (Manual) Eosinophils # (Manual) Basophils # (Manual) PT INR Fibrinogen dRVVT Confirm Interp Factor V Activity POC ABG pH POC ABG pCO2 POC ABG pO2 ABG pO2 ABG HCO3 ABG Base Excess ABG Hemoglobin Oxyhemoglobin Sodium Potassium 3.4 L Chloride Carbon Dioxide BUN 25 H Creatinine 1.5 H Glucose 103 H POC Glucose 121 H 144 H Lactic Acid Calcium Phosphorus Magnesium Direct Bilirubin AST ALT Alkaline Phosphatase Lactate Dehydrogenase Troponin T C-Reactive Protein Total Protein Albumin Prealbumin Triglycerides Cholesterol LDL Cholesterol Direct HDL Cholesterol Urine pH Urine WBC (Auto) Urine Creatinine Urine Total Protein Fluid Total Protein Vancomycin Trough Rheumatoid Factor Complement C4 Miscellaneous Test Crossmatch 11/15/16 11/15/16 11/16/16 21:28 23:20 11:44 WBC RBC Hgb Hct MCV MCH MCHC RDW Plt Count Lymph % (Auto) [place] % (Auto) Lymph # [place] # Baso # Seg Neutrophils % Seg Neuts % (Manual) Lymphocytes % (Manual) Monocytes % (Manual) Eosinophils % (Manual) Basophils % (Manual) Nucleated RBC % Seg Neutrophils # Seg Neutrophils # Man Lymphocytes # (Manual) Monocytes # (Manual) Eosinophils # (Manual) Basophils # (Manual) PT INR Fibrinogen dRVVT Confirm Interp Factor V Activity POC ABG pH 7.462 H POC ABG pCO2 POC ABG pO2 71 L ABG pO2 ABG HCO3 ABG Base Excess ABG Hemoglobin Oxyhemoglobin Sodium Potassium Chloride Carbon Dioxide BUN Creatinine Glucose POC Glucose 116 H 133 H Lactic Acid Calcium Phosphorus Magnesium Direct Bilirubin AST ALT Alkaline Phosphatase Lactate Dehydrogenase Troponin T C-Reactive Protein Total Protein Albumin Prealbumin Triglycerides Cholesterol LDL Cholesterol Direct HDL Cholesterol Urine pH Urine WBC (Auto) Urine Creatinine Urine Total Protein Fluid Total Protein Vancomycin Trough Rheumatoid Factor Complement C4 Miscellaneous Test Crossmatch 11/16/16 11/16/16 11/16/16 12:20 17:05 23:35 WBC 11.7 H RBC 2.73 L Hgb 7.6 L Hct 23.7 L MCV MCH MCHC RDW 16.6 H Plt Count Lymph % (Auto) [place] % (Auto) Lymph # [place] # Baso # Seg Neutrophils % Seg Neuts % (Manual) Lymphocytes % (Manual) Monocytes % (Manual) Eosinophils % (Manual) Basophils % (Manual) Nucleated RBC % Seg Neutrophils # Seg Neutrophils # Man Lymphocytes # (Manual) Monocytes # (Manual) Eosinophils # (Manual) Basophils # (Manual) PT INR Fibrinogen dRVVT Confirm Interp Factor V Activity POC ABG pH POC ABG pCO2 POC ABG pO2 ABG pO2 ABG HCO3 ABG Base Excess ABG Hemoglobin Oxyhemoglobin Sodium Potassium Chloride Carbon Dioxide BUN Creatinine Glucose POC Glucose 154 H 125 H Lactic Acid Calcium Phosphorus Magnesium Direct Bilirubin AST ALT Alkaline Phosphatase Lactate Dehydrogenase Troponin T C-Reactive Protein Total Protein Albumin Prealbumin Triglycerides Cholesterol LDL Cholesterol Direct HDL Cholesterol Urine pH Urine WBC (Auto) Urine Creatinine Urine Total Protein Fluid Total Protein Vancomycin Trough Rheumatoid Factor Complement C4 Miscellaneous Test Crossmatch 11/17/16 11/17/16 11/17/16 03:20 03:20 03:20 WBC RBC 2.55 L Hgb 7.3 L Hct 21.9 L MCV MCH MCHC RDW 16.6 H Plt Count Lymph % (Auto) [place] % (Auto) 11.5 H Lymph # [place] # 1.1 H Baso # Seg Neutrophils % Seg Neuts % (Manual) Lymphocytes % (Manual) Monocytes % (Manual) Eosinophils % (Manual) Basophils % (Manual) Nucleated RBC % Seg Neutrophils # Seg Neutrophils # Man Lymphocytes # (Manual) Monocytes # (Manual) Eosinophils # (Manual) Basophils # (Manual) PT 16.8 H INR 1.37 H Fibrinogen dRVVT Confirm Interp Factor V Activity POC ABG pH POC ABG pCO2 POC ABG pO2 ABG pO2 ABG HCO3 ABG Base Excess ABG Hemoglobin Oxyhemoglobin Sodium Potassium 3.5 L Chloride Carbon Dioxide BUN 21 H Creatinine Glucose POC Glucose Lactic Acid Calcium 7.9 L Phosphorus Magnesium Direct Bilirubin AST ALT Alkaline Phosphatase Lactate Dehydrogenase Troponin T C-Reactive Protein Total Protein Albumin Prealbumin Triglycerides Cholesterol LDL Cholesterol Direct HDL Cholesterol Urine pH Urine WBC (Auto) Urine Creatinine Urine Total Protein Fluid Total Protein Vancomycin Trough Rheumatoid Factor Complement C4 Miscellaneous Test Crossmatch 11/17/16 11/17/16 11/17/16 06:34 11:21 21:22 WBC RBC Hgb Hct MCV MCH MCHC RDW Plt Count Lymph % (Auto) [place] % (Auto) Lymph # [place] # Baso # Seg Neutrophils % Seg Neuts % (Manual) Lymphocytes % (Manual) Monocytes % (Manual) Eosinophils % (Manual) Basophils % (Manual) Nucleated RBC % Seg Neutrophils # Seg Neutrophils # Man Lymphocytes # (Manual) Monocytes # (Manual) Eosinophils # (Manual) Basophils # (Manual) PT INR Fibrinogen dRVVT Confirm Interp Factor V Activity POC ABG pH 7.467 H POC ABG pCO2 POC ABG pO2 73 L ABG pO2 ABG HCO3 ABG Base Excess ABG Hemoglobin Oxyhemoglobin Sodium Potassium Chloride Carbon Dioxide BUN Creatinine Glucose POC Glucose 121 H 119 H Lactic Acid Calcium Phosphorus Magnesium Direct Bilirubin AST ALT Alkaline Phosphatase Lactate Dehydrogenase Troponin T C-Reactive Protein Total Protein Albumin Prealbumin Triglycerides Cholesterol LDL Cholesterol Direct HDL Cholesterol Urine pH Urine WBC (Auto) Urine Creatinine Urine Total Protein Fluid Total Protein Vancomycin Trough Rheumatoid Factor Complement C4 Miscellaneous Test Crossmatch 11/18/16 11/18/16 11/19/16 12:16 17:19 00:00 WBC RBC Hgb Hct MCV MCH MCHC RDW Plt Count Lymph % (Auto) [place] % (Auto) Lymph # [place] # Baso # Seg Neutrophils % Seg Neuts % (Manual) Lymphocytes % (Manual) Monocytes % (Manual) Eosinophils % (Manual) Basophils % (Manual) Nucleated RBC % Seg Neutrophils # Seg Neutrophils # Man Lymphocytes # (Manual) Monocytes # (Manual) Eosinophils # (Manual) Basophils # (Manual) PT INR Fibrinogen dRVVT Confirm Interp Factor V Activity POC ABG pH POC ABG pCO2 POC ABG pO2 ABG pO2 ABG HCO3 ABG Base Excess ABG Hemoglobin Oxyhemoglobin Sodium Potassium Chloride Carbon Dioxide BUN Creatinine Glucose POC Glucose 124 H 162 H 139 H Lactic Acid Calcium Phosphorus Magnesium Direct Bilirubin AST ALT Alkaline Phosphatase Lactate Dehydrogenase Troponin T C-Reactive Protein Total Protein Albumin Prealbumin Triglycerides Cholesterol LDL Cholesterol Direct HDL Cholesterol Urine pH Urine WBC (Auto) Urine Creatinine Urine Total Protein Fluid Total Protein Vancomycin Trough Rheumatoid Factor Complement C4 Miscellaneous Test Crossmatch 11/19/16 11/19/16 11/20/16 05:00 12:43 00:40 WBC RBC Hgb Hct MCV MCH MCHC RDW Plt Count Lymph % (Auto) [place] % (Auto) Lymph # [place] # Baso # Seg Neutrophils % Seg Neuts % (Manual) Lymphocytes % (Manual) Monocytes % (Manual) Eosinophils % (Manual) Basophils % (Manual) Nucleated RBC % Seg Neutrophils # Seg Neutrophils # Man Lymphocytes # (Manual) Monocytes # (Manual) Eosinophils # (Manual) Basophils # (Manual) PT INR Fibrinogen dRVVT Confirm Interp Factor V Activity POC ABG pH POC ABG pCO2 POC ABG pO2 ABG pO2 ABG HCO3 ABG Base Excess ABG Hemoglobin Oxyhemoglobin Sodium Potassium Chloride Carbon Dioxide BUN Creatinine Glucose POC Glucose 110 H 125 H 136 H Lactic Acid Calcium Phosphorus Magnesium Direct Bilirubin AST ALT Alkaline Phosphatase Lactate Dehydrogenase Troponin T C-Reactive Protein Total Protein Albumin Prealbumin Triglycerides Cholesterol LDL Cholesterol Direct HDL Cholesterol Urine pH Urine WBC (Auto) Urine Creatinine Urine Total Protein Fluid Total Protein Vancomycin Trough Rheumatoid Factor Complement C4 Miscellaneous Test Crossmatch 11/20/16 11/20/16 11/20/16 05:00 05:00 05:51 WBC 13.1 H RBC 2.74 L Hgb 7.7 L Hct 23.6 L MCV MCH MCHC RDW 16.9 H Plt Count Lymph % (Auto) [place] % (Auto) 10.8 H Lymph # [place] # 1.4 H Baso # Seg Neutrophils % Seg Neuts % (Manual) Lymphocytes % (Manual) Monocytes % (Manual) Eosinophils % (Manual) Basophils % (Manual) Nucleated RBC % Seg Neutrophils # 7.9 H Seg Neutrophils # Man Lymphocytes # (Manual) Monocytes # (Manual) Eosinophils # (Manual) Basophils # (Manual) PT INR Fibrinogen dRVVT Confirm Interp Factor V Activity POC ABG pH POC ABG pCO2 POC ABG pO2 ABG pO2 ABG HCO3 ABG Base Excess ABG Hemoglobin Oxyhemoglobin Sodium Potassium Chloride Carbon Dioxide BUN 31 H Creatinine 1.8 H Glucose 129 H POC Glucose 133 H Lactic Acid Calcium Phosphorus Magnesium Direct Bilirubin AST ALT Alkaline Phosphatase Lactate Dehydrogenase Troponin T C-Reactive Protein Total Protein Albumin Prealbumin Triglycerides Cholesterol LDL Cholesterol Direct HDL Cholesterol Urine pH Urine WBC (Auto) Urine Creatinine Urine Total Protein Fluid Total Protein Vancomycin Trough Rheumatoid Factor Complement C4 Miscellaneous Test Crossmatch 11/20/16 11/20/16 11/21/16 12:40 18:10 01:20 WBC RBC Hgb Hct MCV MCH MCHC RDW Plt Count Lymph % (Auto) [place] % (Auto) Lymph # [place] # Baso # Seg Neutrophils % Seg Neuts % (Manual) Lymphocytes % (Manual) Monocytes % (Manual) Eosinophils % (Manual) Basophils % (Manual) Nucleated RBC % Seg Neutrophils # Seg Neutrophils # Man Lymphocytes # (Manual) Monocytes # (Manual) Eosinophils # (Manual) Basophils # (Manual) PT INR Fibrinogen dRVVT Confirm Interp Factor V Activity POC ABG pH POC ABG pCO2 POC ABG pO2 ABG pO2 ABG HCO3 ABG Base Excess ABG Hemoglobin Oxyhemoglobin Sodium Potassium Chloride Carbon Dioxide BUN Creatinine Glucose POC Glucose 134 H 138 H 136 H Lactic Acid Calcium Phosphorus Magnesium Direct Bilirubin AST ALT Alkaline Phosphatase Lactate Dehydrogenase Troponin T C-Reactive Protein Total Protein Albumin Prealbumin Triglycerides Cholesterol LDL Cholesterol Direct HDL Cholesterol Urine pH Urine WBC (Auto) Urine Creatinine Urine Total Protein Fluid Total Protein Vancomycin Trough Rheumatoid Factor Complement C4 Miscellaneous Test Crossmatch 11/21/16 11/21/16 11/21/16 07:04 07:45 07:45 WBC 22.0 H RBC 2.91 L Hgb 8.2 L Hct 25.4 L MCV MCH MCHC RDW 17.1 H Plt Count Lymph % (Auto) [place] % (Auto) Lymph # [place] # Baso # Seg Neutrophils % Seg Neuts % (Manual) Lymphocytes % (Manual) 8.0 L Monocytes % (Manual) Eosinophils % (Manual) Basophils % (Manual) Nucleated RBC % Seg Neutrophils # Seg Neutrophils # Man 14.7 H Lymphocytes # (Manual) Monocytes # (Manual) 1.1 H Eosinophils # (Manual) Basophils # (Manual) PT INR Fibrinogen dRVVT Confirm Interp Factor V Activity POC ABG pH POC ABG pCO2 POC ABG pO2 ABG pO2 ABG HCO3 ABG Base Excess ABG Hemoglobin Oxyhemoglobin Sodium Potassium Chloride Carbon Dioxide BUN 42 H Creatinine 2.0 H Glucose POC Glucose 108 H Lactic Acid Calcium Phosphorus Magnesium Direct Bilirubin AST ALT Alkaline Phosphatase Lactate Dehydrogenase Troponin T C-Reactive Protein Total Protein Albumin Prealbumin Triglycerides Cholesterol LDL Cholesterol Direct HDL Cholesterol Urine pH Urine WBC (Auto) Urine Creatinine Urine Total Protein Fluid Total Protein Vancomycin Trough Rheumatoid Factor Complement C4 Miscellaneous Test Crossmatch 11/21/16 11/21/16 11/21/16 08:38 10:09 11:20 WBC RBC Hgb Hct MCV MCH MCHC RDW Plt Count Lymph % (Auto) [place] % (Auto) Lymph # [place] # Baso # Seg Neutrophils % Seg Neuts % (Manual) Lymphocytes % (Manual) Monocytes % (Manual) Eosinophils % (Manual) Basophils % (Manual) Nucleated RBC % Seg Neutrophils # Seg Neutrophils # Man Lymphocytes # (Manual) Monocytes # (Manual) Eosinophils # (Manual) Basophils # (Manual) PT INR Fibrinogen dRVVT Confirm Interp Factor V Activity POC ABG pH 7.346 L POC ABG pCO2 34.4 L POC ABG pO2 314 H ABG pO2 ABG HCO3 ABG Base Excess ABG Hemoglobin Oxyhemoglobin Sodium Potassium Chloride Carbon Dioxide BUN Creatinine Glucose POC Glucose 195 H 153 H Lactic Acid Calcium Phosphorus Magnesium Direct Bilirubin AST ALT Alkaline Phosphatase Lactate Dehydrogenase Troponin T C-Reactive Protein Total Protein Albumin Prealbumin Triglycerides Cholesterol LDL Cholesterol Direct HDL Cholesterol Urine pH Urine WBC (Auto) Urine Creatinine Urine Total Protein Fluid Total Protein Vancomycin Trough Rheumatoid Factor Complement C4 Miscellaneous Test Crossmatch 11/21/16 11/22/16 11/22/16 23:37 04:48 05:00 WBC 29.7 H RBC 2.73 L Hgb 7.5 L Hct 24.2 L MCV MCH 27 L MCHC RDW 17.4 H Plt Count Lymph % (Auto) [place] % (Auto) Lymph # [place] # Baso # Seg Neutrophils % Seg Neuts % (Manual) Lymphocytes % (Manual) 7.0 L Monocytes % (Manual) Eosinophils % (Manual) Basophils % (Manual) Nucleated RBC % Seg Neutrophils # Seg Neutrophils # Man 15.4 H Lymphocytes # (Manual) Monocytes # (Manual) Eosinophils # (Manual) Basophils # (Manual) PT INR Fibrinogen dRVVT Confirm Interp Factor V Activity POC ABG pH POC ABG pCO2 24.6 L POC ABG pO2 189 H ABG pO2 ABG HCO3 ABG Base Excess ABG Hemoglobin Oxyhemoglobin Sodium Potassium Chloride Carbon Dioxide BUN Creatinine Glucose POC Glucose 65 L Lactic Acid Calcium Phosphorus Magnesium Direct Bilirubin AST ALT Alkaline Phosphatase Lactate Dehydrogenase Troponin T C-Reactive Protein Total Protein Albumin Prealbumin Triglycerides Cholesterol LDL Cholesterol Direct HDL Cholesterol Urine pH Urine WBC (Auto) Urine Creatinine Urine Total Protein Fluid Total Protein Vancomycin Trough Rheumatoid Factor Complement C4 Miscellaneous Test Crossmatch 11/22/16 11/23/16 11/23/16 05:00 03:44 04:06 WBC RBC 2.52 L Hgb 7.2 L Hct 21.5 L MCV MCH MCHC RDW 17.1 H Plt Count Lymph % (Auto) [place] % (Auto) 12.4 H Lymph # [place] # 1.4 H Baso # Seg Neutrophils % Seg Neuts % (Manual) Lymphocytes % (Manual) Monocytes % (Manual) Eosinophils % (Manual) Basophils % (Manual) Nucleated RBC % Seg Neutrophils # Seg Neutrophils # Man Lymphocytes # (Manual) Monocytes # (Manual) Eosinophils # (Manual) Basophils # (Manual) PT INR Fibrinogen dRVVT Confirm Interp Factor V Activity POC ABG pH 7.493 H POC ABG pCO2 29.5 L POC ABG pO2 49 L ABG pO2 ABG HCO3 ABG Base Excess ABG Hemoglobin Oxyhemoglobin Sodium 134 L Potassium Chloride 95.9 L Carbon Dioxide 14 L D BUN 51 H Creatinine 2.6 H Glucose POC Glucose Lactic Acid Calcium Phosphorus Magnesium Direct Bilirubin AST ALT Alkaline Phosphatase Lactate Dehydrogenase Troponin T C-Reactive Protein Total Protein Albumin Prealbumin Triglycerides Cholesterol LDL Cholesterol Direct HDL Cholesterol Urine pH Urine WBC (Auto) Urine Creatinine Urine Total Protein Fluid Total Protein Vancomycin Trough Rheumatoid Factor Complement C4 Miscellaneous Test Crossmatch 11/23/16 11/23/16 11/24/16 04:06 11:29 06:39 WBC RBC Hgb Hct MCV MCH MCHC RDW Plt Count Lymph % (Auto) [place] % (Auto) Lymph # [place] # Baso # Seg Neutrophils % Seg Neuts % (Manual) Lymphocytes % (Manual) Monocytes % (Manual) Eosinophils % (Manual) Basophils % (Manual) Nucleated RBC % Seg Neutrophils # Seg Neutrophils # Man Lymphocytes # (Manual) Monocytes # (Manual) Eosinophils # (Manual) Basophils # (Manual) PT INR Fibrinogen dRVVT Confirm Interp Factor V Activity POC ABG pH POC ABG pCO2 POC ABG pO2 ABG pO2 ABG HCO3 ABG Base Excess ABG Hemoglobin Oxyhemoglobin Sodium 136 L Potassium Chloride 95.2 L Carbon Dioxide BUN 60 H Creatinine 2.9 H Glucose POC Glucose 69 L 305 H Lactic Acid Calcium Phosphorus Magnesium 1.60 L Direct Bilirubin AST ALT Alkaline Phosphatase Lactate Dehydrogenase Troponin T C-Reactive Protein Total Protein Albumin Prealbumin Triglycerides Cholesterol LDL Cholesterol Direct HDL Cholesterol Urine pH Urine WBC (Auto) Urine Creatinine Urine Total Protein Fluid Total Protein Vancomycin Trough Rheumatoid Factor Complement C4 Miscellaneous Test Crossmatch 11/24/16 11/24/16 11/24/16 06:43 08:08 08:08 WBC 11.2 H RBC 2.47 L Hgb 6.8 L Hct 20.6 L MCV MCH MCHC RDW 17.0 H Plt Count Lymph % (Auto) [place] % (Auto) 10.3 H Lymph # [place] # 1.2 H Baso # Seg Neutrophils % Seg Neuts % (Manual) Lymphocytes % (Manual) Monocytes % (Manual) Eosinophils % (Manual) Basophils % (Manual) Nucleated RBC % Seg Neutrophils # Seg Neutrophils # Man Lymphocytes # (Manual) Monocytes # (Manual) Eosinophils # (Manual) Basophils # (Manual) PT INR Fibrinogen dRVVT Confirm Interp Factor V Activity POC ABG pH POC ABG pCO2 POC ABG pO2 ABG pO2 ABG HCO3 ABG Base Excess ABG Hemoglobin Oxyhemoglobin Sodium 135 L Potassium Chloride 96.3 L Carbon Dioxide BUN 61 H Creatinine 3.1 H Glucose POC Glucose 62 L Lactic Acid Calcium 8.2 L Phosphorus Magnesium Direct Bilirubin AST ALT Alkaline Phosphatase Lactate Dehydrogenase Troponin T C-Reactive Protein Total Protein Albumin Prealbumin Triglycerides Cholesterol LDL Cholesterol Direct HDL Cholesterol Urine pH Urine WBC (Auto) Urine Creatinine Urine Total Protein Fluid Total Protein Vancomycin Trough Rheumatoid Factor Complement C4 Miscellaneous Test Crossmatch 11/24/16 11/24/16 11/24/16 08:34 11:20 12:41 WBC RBC Hgb Hct MCV MCH MCHC RDW Plt Count Lymph % (Auto) [place] % (Auto) Lymph # [place] # Baso # Seg Neutrophils % Seg Neuts % (Manual) Lymphocytes % (Manual) Monocytes % (Manual) Eosinophils % (Manual) Basophils % (Manual) Nucleated RBC % Seg Neutrophils # Seg Neutrophils # Man Lymphocytes # (Manual) Monocytes # (Manual) Eosinophils # (Manual) Basophils # (Manual) PT INR Fibrinogen dRVVT Confirm Interp Factor V Activity POC ABG pH POC ABG pCO2 POC ABG pO2 ABG pO2 ABG HCO3 ABG Base Excess ABG Hemoglobin Oxyhemoglobin Sodium Potassium Chloride Carbon Dioxide BUN Creatinine Glucose POC Glucose 108 H Lactic Acid Calcium Phosphorus Magnesium 1.60 L Direct Bilirubin AST ALT Alkaline Phosphatase Lactate Dehydrogenase Troponin T C-Reactive Protein Total Protein Albumin Prealbumin Triglycerides Cholesterol LDL Cholesterol Direct HDL Cholesterol Urine pH Urine WBC (Auto) Urine Creatinine Urine Total Protein Fluid Total Protein Vancomycin Trough Rheumatoid Factor Complement C4 Miscellaneous Test Crossmatch See Detail 11/25/16 11/25/16 11/25/16 00:03 04:42 04:42 WBC RBC 3.03 L Hgb 8.6 L Hct 25.3 L MCV MCH MCHC RDW 16.2 H Plt Count Lymph % (Auto) [place] % (Auto) 8.1 H Lymph # [place] # Baso # Seg Neutrophils % 71.3 H Seg Neuts % (Manual) Lymphocytes % (Manual) Monocytes % (Manual) Eosinophils % (Manual) Basophils % (Manual) Nucleated RBC % Seg Neutrophils # Seg Neutrophils # Man Lymphocytes # (Manual) Monocytes # (Manual) Eosinophils # (Manual) Basophils # (Manual) PT INR Fibrinogen dRVVT Confirm Interp Factor V Activity POC ABG pH POC ABG pCO2 POC ABG pO2 ABG pO2 ABG HCO3 ABG Base Excess ABG Hemoglobin Oxyhemoglobin Sodium Potassium Chloride Carbon Dioxide BUN 61 H Creatinine 3.0 H Glucose 102 H POC Glucose 113 H Lactic Acid Calcium 8.2 L Phosphorus Magnesium Direct Bilirubin AST ALT Alkaline Phosphatase 142 H Lactate Dehydrogenase Troponin T C-Reactive Protein Total Protein 5.7 L Albumin 1.5 L Prealbumin Triglycerides Cholesterol LDL Cholesterol Direct HDL Cholesterol Urine pH Urine WBC (Auto) Urine Creatinine Urine Total Protein Fluid Total Protein Vancomycin Trough Rheumatoid Factor Complement C4 Miscellaneous Test Crossmatch 11/25/16 11/25/16 11/25/16 05:12 11:31 14:12 WBC RBC Hgb Hct MCV MCH MCHC RDW Plt Count Lymph % (Auto) [place] % (Auto) Lymph # [place] # Baso # Seg Neutrophils % Seg Neuts % (Manual) Lymphocytes % (Manual) Monocytes % (Manual) Eosinophils % (Manual) Basophils % (Manual) Nucleated RBC % Seg Neutrophils # Seg Neutrophils # Man Lymphocytes # (Manual) Monocytes # (Manual) Eosinophils # (Manual) Basophils # (Manual) PT INR Fibrinogen dRVVT Confirm Interp Factor V Activity POC ABG pH 7.487 H POC ABG pCO2 POC ABG pO2 153 H ABG pO2 ABG HCO3 ABG Base Excess ABG Hemoglobin Oxyhemoglobin Sodium Potassium Chloride Carbon Dioxide BUN Creatinine Glucose POC Glucose 131 H 140 H Lactic Acid Calcium Phosphorus Magnesium Direct Bilirubin AST ALT Alkaline Phosphatase Lactate Dehydrogenase Troponin T C-Reactive Protein Total Protein Albumin Prealbumin Triglycerides Cholesterol LDL Cholesterol Direct HDL Cholesterol Urine pH Urine WBC (Auto) Urine Creatinine Urine Total Protein Fluid Total Protein Vancomycin Trough Rheumatoid Factor Complement C4 Miscellaneous Test Crossmatch 11/25/16 11/26/16 11/26/16 17:23 00:09 05:13 WBC RBC 2.94 L Hgb 8.4 L Hct 24.6 L MCV MCH MCHC RDW 16.4 H Plt Count Lymph % (Auto) [place] % (Auto) 12.3 H Lymph # [place] # 1.1 H Baso # Seg Neutrophils % Seg Neuts % (Manual) Lymphocytes % (Manual) Monocytes % (Manual) Eosinophils % (Manual) Basophils % (Manual) Nucleated RBC % Seg Neutrophils # Seg Neutrophils # Man Lymphocytes # (Manual) Monocytes # (Manual) Eosinophils # (Manual) Basophils # (Manual) PT INR Fibrinogen dRVVT Confirm Interp Factor V Activity POC ABG pH POC ABG pCO2 POC ABG pO2 ABG pO2 ABG HCO3 ABG Base Excess ABG Hemoglobin Oxyhemoglobin Sodium Potassium Chloride Carbon Dioxide BUN Creatinine Glucose POC Glucose 146 H 112 H Lactic Acid Calcium Phosphorus Magnesium Direct Bilirubin AST ALT Alkaline Phosphatase Lactate Dehydrogenase Troponin T C-Reactive Protein Total Protein Albumin Prealbumin Triglycerides Cholesterol LDL Cholesterol Direct HDL Cholesterol Urine pH Urine WBC (Auto) Urine Creatinine Urine Total Protein Fluid Total Protein Vancomycin Trough Rheumatoid Factor Complement C4 Miscellaneous Test Crossmatch 11/26/16 11/26/16 11/26/16 05:13 05:28 11:53 WBC RBC Hgb Hct MCV MCH MCHC RDW Plt Count Lymph % (Auto) [place] % (Auto) Lymph # [place] # Baso # Seg Neutrophils % Seg Neuts % (Manual) Lymphocytes % (Manual) Monocytes % (Manual) Eosinophils % (Manual) Basophils % (Manual) Nucleated RBC % Seg Neutrophils # Seg Neutrophils # Man Lymphocytes # (Manual) Monocytes # (Manual) Eosinophils # (Manual) Basophils # (Manual) PT INR Fibrinogen dRVVT Confirm Interp Factor V Activity POC ABG pH POC ABG pCO2 POC ABG pO2 ABG pO2 ABG HCO3 ABG Base Excess ABG Hemoglobin Oxyhemoglobin Sodium Potassium Chloride 97.8 L Carbon Dioxide BUN 37 H Creatinine 2.0 H Glucose 109 H POC Glucose 117 H 111 H Lactic Acid Calcium 7.9 L Phosphorus 1.80 L D Magnesium Direct Bilirubin AST ALT Alkaline Phosphatase Lactate Dehydrogenase Troponin T C-Reactive Protein Total Protein Albumin Prealbumin Triglycerides Cholesterol LDL Cholesterol Direct HDL Cholesterol Urine pH Urine WBC (Auto) Urine Creatinine Urine Total Protein Fluid Total Protein Vancomycin Trough Rheumatoid Factor Complement C4 Miscellaneous Test Crossmatch 11/26/16 11/27/16 11/27/16 17:14 04:50 06:02 WBC RBC Hgb Hct MCV MCH MCHC RDW Plt Count Lymph % (Auto) [place] % (Auto) Lymph # [place] # Baso # Seg Neutrophils % Seg Neuts % (Manual) Lymphocytes % (Manual) Monocytes % (Manual) Eosinophils % (Manual) Basophils % (Manual) Nucleated RBC % Seg Neutrophils # Seg Neutrophils # Man Lymphocytes # (Manual) Monocytes # (Manual) Eosinophils # (Manual) Basophils # (Manual) PT INR Fibrinogen dRVVT Confirm Interp Factor V Activity POC ABG pH POC ABG pCO2 POC ABG pO2 ABG pO2 75.2 L ABG HCO3 26.4 H ABG Base Excess ABG Hemoglobin 7.6 L Oxyhemoglobin 94.8 L Sodium Potassium Chloride Carbon Dioxide BUN 49 H Creatinine 2.3 H Glucose POC Glucose 115 H Lactic Acid Calcium Phosphorus 1.50 L Magnesium Direct Bilirubin AST ALT Alkaline Phosphatase Lactate Dehydrogenase Troponin T C-Reactive Protein Total Protein Albumin Prealbumin Triglycerides Cholesterol LDL Cholesterol Direct HDL Cholesterol Urine pH Urine WBC (Auto) Urine Creatinine Urine Total Protein Fluid Total Protein Vancomycin Trough Rheumatoid Factor Complement C4 Miscellaneous Test Crossmatch 11/27/16 11/27/16 11/27/16 06:02 11:25 17:25 WBC 11.6 H RBC 2.75 L Hgb 7.6 L Hct 23.4 L MCV MCH MCHC RDW 16.5 H Plt Count Lymph % (Auto) [place] % (Auto) Lymph # [place] # Baso # Seg Neutrophils % Seg Neuts % (Manual) Lymphocytes % (Manual) Monocytes % (Manual) Eosinophils % (Manual) Basophils % (Manual) Nucleated RBC % Seg Neutrophils # Seg Neutrophils # Man Lymphocytes # (Manual) Monocytes # (Manual) Eosinophils # (Manual) Basophils # (Manual) PT INR Fibrinogen dRVVT Confirm Interp Factor V Activity POC ABG pH POC ABG pCO2 POC ABG pO2 ABG pO2 ABG HCO3 ABG Base Excess ABG Hemoglobin Oxyhemoglobin Sodium Potassium Chloride Carbon Dioxide BUN Creatinine Glucose POC Glucose 114 H 126 H Lactic Acid Calcium Phosphorus Magnesium Direct Bilirubin AST ALT Alkaline Phosphatase Lactate Dehydrogenase Troponin T C-Reactive Protein Total Protein Albumin Prealbumin Triglycerides Cholesterol LDL Cholesterol Direct HDL Cholesterol Urine pH Urine WBC (Auto) Urine Creatinine Urine Total Protein Fluid Total Protein Vancomycin Trough Rheumatoid Factor Complement C4 Miscellaneous Test Crossmatch 11/28/16 11/28/16 11/28/16 04:45 05:33 05:44 WBC RBC Hgb Hct MCV MCH MCHC RDW Plt Count Lymph % (Auto) [place] % (Auto) Lymph # [place] # Baso # Seg Neutrophils % Seg Neuts % (Manual) Lymphocytes % (Manual) Monocytes % (Manual) Eosinophils % (Manual) Basophils % (Manual) Nucleated RBC % Seg Neutrophils # Seg Neutrophils # Man Lymphocytes # (Manual) Monocytes # (Manual) Eosinophils # (Manual) Basophils # (Manual) PT INR Fibrinogen dRVVT Confirm Interp Factor V Activity POC ABG pH POC ABG pCO2 POC ABG pO2 ABG pO2 99.3 H ABG HCO3 ABG Base Excess ABG Hemoglobin 8.3 L Oxyhemoglobin Sodium Potassium Chloride Carbon Dioxide BUN 63 H Creatinine 2.4 H Glucose 102 H POC Glucose 108 H Lactic Acid Calcium Phosphorus 1.80 L Magnesium Direct Bilirubin AST ALT Alkaline Phosphatase Lactate Dehydrogenase Troponin T C-Reactive Protein Total Protein Albumin Prealbumin Triglycerides Cholesterol LDL Cholesterol Direct HDL Cholesterol Urine pH Urine WBC (Auto) Urine Creatinine Urine Total Protein Fluid Total Protein Vancomycin Trough Rheumatoid Factor Complement C4 Miscellaneous Test Crossmatch 11/28/16 11/28/16 11/28/16 12:31 16:09 23:46 WBC RBC Hgb Hct MCV MCH MCHC RDW Plt Count Lymph % (Auto) [place] % (Auto) Lymph # [place] # Baso # Seg Neutrophils % Seg Neuts % (Manual) Lymphocytes % (Manual) Monocytes % (Manual) Eosinophils % (Manual) Basophils % (Manual) Nucleated RBC % Seg Neutrophils # Seg Neutrophils # Man Lymphocytes # (Manual) Monocytes # (Manual) Eosinophils # (Manual) Basophils # (Manual) PT INR Fibrinogen dRVVT Confirm Interp Factor V Activity POC ABG pH POC ABG pCO2 POC ABG pO2 ABG pO2 ABG HCO3 ABG Base Excess ABG Hemoglobin Oxyhemoglobin Sodium Potassium Chloride Carbon Dioxide BUN Creatinine Glucose POC Glucose 126 H 111 H 119 H Lactic Acid Calcium Phosphorus Magnesium Direct Bilirubin AST ALT Alkaline Phosphatase Lactate Dehydrogenase Troponin T C-Reactive Protein Total Protein Albumin Prealbumin Triglycerides Cholesterol LDL Cholesterol Direct HDL Cholesterol Urine pH Urine WBC (Auto) Urine Creatinine Urine Total Protein Fluid Total Protein Vancomycin Trough Rheumatoid Factor Complement C4 Miscellaneous Test Crossmatch 11/29/16 11/29/16 11/29/16 03:33 04:52 05:10 WBC RBC Hgb Hct MCV MCH MCHC RDW Plt Count Lymph % (Auto) [place] % (Auto) Lymph # [place] # Baso # Seg Neutrophils % Seg Neuts % (Manual) Lymphocytes % (Manual) Monocytes % (Manual) Eosinophils % (Manual) Basophils % (Manual) Nucleated RBC % Seg Neutrophils # Seg Neutrophils # Man Lymphocytes # (Manual) Monocytes # (Manual) Eosinophils # (Manual) Basophils # (Manual) PT INR Fibrinogen dRVVT Confirm Interp Factor V Activity POC ABG pH POC ABG pCO2 POC ABG pO2 ABG pO2 ABG HCO3 ABG Base Excess ABG Hemoglobin 7.0 L Oxyhemoglobin 94.9 L Sodium Potassium Chloride Carbon Dioxide BUN 73 H Creatinine 2.7 H Glucose POC Glucose 108 H Lactic Acid Calcium Phosphorus Magnesium Direct Bilirubin AST ALT Alkaline Phosphatase Lactate Dehydrogenase Troponin T C-Reactive Protein Total Protein Albumin Prealbumin Triglycerides Cholesterol LDL Cholesterol Direct HDL Cholesterol Urine pH Urine WBC (Auto) Urine Creatinine Urine Total Protein Fluid Total Protein Vancomycin Trough Rheumatoid Factor Complement C4 Miscellaneous Test Crossmatch 11/29/16 11/29/16 11/29/16 12:16 18:05 23:46 WBC RBC Hgb Hct MCV MCH MCHC RDW Plt Count Lymph % (Auto) [place] % (Auto) Lymph # [place] # Baso # Seg Neutrophils % Seg Neuts % (Manual) Lymphocytes % (Manual) Monocytes % (Manual) Eosinophils % (Manual) Basophils % (Manual) Nucleated RBC % Seg Neutrophils # Seg Neutrophils # Man Lymphocytes # (Manual) Monocytes # (Manual) Eosinophils # (Manual) Basophils # (Manual) PT INR Fibrinogen dRVVT Confirm Interp Factor V Activity POC ABG pH POC ABG pCO2 POC ABG pO2 ABG pO2 ABG HCO3 ABG Base Excess ABG Hemoglobin Oxyhemoglobin Sodium Potassium Chloride Carbon Dioxide BUN Creatinine Glucose POC Glucose 133 H 146 H 141 H Lactic Acid Calcium Phosphorus Magnesium Direct Bilirubin AST ALT Alkaline Phosphatase Lactate Dehydrogenase Troponin T C-Reactive Protein Total Protein Albumin Prealbumin Triglycerides Cholesterol LDL Cholesterol Direct HDL Cholesterol Urine pH Urine WBC (Auto) Urine Creatinine Urine Total Protein Fluid Total Protein Vancomycin Trough Rheumatoid Factor Complement C4 Miscellaneous Test Crossmatch 11/30/16 11/30/16 11/30/16 04:17 04:17 04:32 WBC 12.0 H RBC 2.80 L Hgb 7.8 L Hct 23.6 L MCV MCH MCHC RDW 16.6 H Plt Count Lymph % (Auto) [place] % (Auto) 11.3 H Lymph # [place] # 1.4 H Baso # Seg Neutrophils % Seg Neuts % (Manual) Lymphocytes % (Manual) Monocytes % (Manual) Eosinophils % (Manual) Basophils % (Manual) Nucleated RBC % Seg Neutrophils # 8.2 H Seg Neutrophils # Man Lymphocytes # (Manual) Monocytes # (Manual) Eosinophils # (Manual) Basophils # (Manual) PT INR Fibrinogen dRVVT Confirm Interp Factor V Activity POC ABG pH POC ABG pCO2 POC ABG pO2 ABG pO2 ABG HCO3 ABG Base Excess ABG Hemoglobin Oxyhemoglobin Sodium 169 H* D Potassium 5.1 H Chloride 121.5 H Carbon Dioxide BUN 34 H Creatinine 1.3 H D Glucose 133 H POC Glucose 131 H Lactic Acid Calcium 10.3 H Phosphorus Magnesium Direct Bilirubin AST ALT Alkaline Phosphatase Lactate Dehydrogenase Troponin T C-Reactive Protein Total Protein Albumin Prealbumin Triglycerides Cholesterol LDL Cholesterol Direct HDL Cholesterol Urine pH Urine WBC (Auto) Urine Creatinine Urine Total Protein Fluid Total Protein Vancomycin Trough Rheumatoid Factor Complement C4 Miscellaneous Test Crossmatch 11/30/16 11/30/16 11/30/16 05:45 11:10 17:26 WBC RBC Hgb Hct MCV MCH MCHC RDW Plt Count Lymph % (Auto) [place] % (Auto) Lymph # [place] # Baso # Seg Neutrophils % Seg Neuts % (Manual) Lymphocytes % (Manual) Monocytes % (Manual) Eosinophils % (Manual) Basophils % (Manual) Nucleated RBC % Seg Neutrophils # Seg Neutrophils # Man Lymphocytes # (Manual) Monocytes # (Manual) Eosinophils # (Manual) Basophils # (Manual) PT INR Fibrinogen dRVVT Confirm Interp Factor V Activity POC ABG pH POC ABG pCO2 POC ABG pO2 ABG pO2 ABG HCO3 ABG Base Excess ABG Hemoglobin Oxyhemoglobin Sodium Potassium Chloride Carbon Dioxide BUN 45 H Creatinine 1.6 H Glucose 131 H POC Glucose 146 H 134 H Lactic Acid Calcium Phosphorus Magnesium Direct Bilirubin AST ALT Alkaline Phosphatase Lactate Dehydrogenase Troponin T C-Reactive Protein Total Protein Albumin Prealbumin Triglycerides Cholesterol LDL Cholesterol Direct HDL Cholesterol Urine pH Urine WBC (Auto) Urine Creatinine Urine Total Protein Fluid Total Protein Vancomycin Trough Rheumatoid Factor Complement C4 Miscellaneous Test Crossmatch 11/30/16 12/01/16 12/01/16 23:35 00:06 03:35 WBC RBC Hgb Hct MCV MCH MCHC RDW Plt Count Lymph % (Auto) [place] % (Auto) Lymph # [place] # Baso # Seg Neutrophils % Seg Neuts % (Manual) Lymphocytes % (Manual) Monocytes % (Manual) Eosinophils % (Manual) Basophils % (Manual) Nucleated RBC % Seg Neutrophils # Seg Neutrophils # Man Lymphocytes # (Manual) Monocytes # (Manual) Eosinophils # (Manual) Basophils # (Manual) PT INR Fibrinogen dRVVT Confirm Interp Factor V Activity POC ABG pH POC ABG pCO2 POC ABG pO2 ABG pO2 ABG HCO3 ABG Base Excess ABG Hemoglobin 6.9 L Oxyhemoglobin Sodium Potassium Chloride Carbon Dioxide BUN 58 H Creatinine 1.8 H Glucose 146 H POC Glucose 151 H Lactic Acid Calcium Phosphorus Magnesium Direct Bilirubin AST ALT Alkaline Phosphatase Lactate Dehydrogenase Troponin T C-Reactive Protein Total Protein Albumin Prealbumin Triglycerides Cholesterol LDL Cholesterol Direct HDL Cholesterol Urine pH Urine WBC (Auto) Urine Creatinine Urine Total Protein Fluid Total Protein Vancomycin Trough Rheumatoid Factor Complement C4 Miscellaneous Test Crossmatch 12/01/16 12/01/16 12/01/16 03:35 05:47 11:52 WBC 12.3 H RBC 2.82 L Hgb 7.8 L Hct 23.7 L MCV MCH MCHC RDW 16.7 H Plt Count Lymph % (Auto) [place] % (Auto) 9.8 H Lymph # [place] # 1.2 H Baso # Seg Neutrophils % Seg Neuts % (Manual) Lymphocytes % (Manual) Monocytes % (Manual) Eosinophils % (Manual) Basophils % (Manual) Nucleated RBC % Seg Neutrophils # 8.4 H Seg Neutrophils # Man Lymphocytes # (Manual) Monocytes # (Manual) Eosinophils # (Manual) Basophils # (Manual) PT INR Fibrinogen dRVVT Confirm Interp Factor V Activity POC ABG pH POC ABG pCO2 POC ABG pO2 ABG pO2 ABG HCO3 ABG Base Excess ABG Hemoglobin Oxyhemoglobin Sodium Potassium Chloride Carbon Dioxide BUN Creatinine Glucose POC Glucose 152 H 152 H Lactic Acid Calcium Phosphorus Magnesium Direct Bilirubin AST ALT Alkaline Phosphatase Lactate Dehydrogenase Troponin T C-Reactive Protein Total Protein Albumin Prealbumin Triglycerides Cholesterol LDL Cholesterol Direct HDL Cholesterol Urine pH Urine WBC (Auto) Urine Creatinine Urine Total Protein Fluid Total Protein Vancomycin Trough Rheumatoid Factor Complement C4 Miscellaneous Test Crossmatch 12/01/16 12/01/16 12/02/16 17:40 23:41 05:00 WBC RBC Hgb Hct MCV MCH MCHC RDW Plt Count Lymph % (Auto) [place] % (Auto) Lymph # [place] # Baso # Seg Neutrophils % Seg Neuts % (Manual) Lymphocytes % (Manual) Monocytes % (Manual) Eosinophils % (Manual) Basophils % (Manual) Nucleated RBC % Seg Neutrophils # Seg Neutrophils # Man Lymphocytes # (Manual) Monocytes # (Manual) Eosinophils # (Manual) Basophils # (Manual) PT INR Fibrinogen dRVVT Confirm Interp Factor V Activity POC ABG pH POC ABG pCO2 POC ABG pO2 ABG pO2 ABG HCO3 ABG Base Excess ABG Hemoglobin Oxyhemoglobin Sodium Potassium Chloride Carbon Dioxide BUN 45 H Creatinine Glucose 115 H POC Glucose 140 H 144 H Lactic Acid Calcium Phosphorus Magnesium Direct Bilirubin AST ALT Alkaline Phosphatase Lactate Dehydrogenase Troponin T C-Reactive Protein Total Protein Albumin Prealbumin Triglycerides Cholesterol LDL Cholesterol Direct HDL Cholesterol Urine pH Urine WBC (Auto) Urine Creatinine Urine Total Protein Fluid Total Protein Vancomycin Trough Rheumatoid Factor Complement C4 Miscellaneous Test Crossmatch 12/02/16 12/02/16 12/02/16 05:31 11:20 17:38 WBC RBC Hgb Hct MCV MCH MCHC RDW Plt Count Lymph % (Auto) [place] % (Auto) Lymph # [place] # Baso # Seg Neutrophils % Seg Neuts % (Manual) Lymphocytes % (Manual) Monocytes % (Manual) Eosinophils % (Manual) Basophils % (Manual) Nucleated RBC % Seg Neutrophils # Seg Neutrophils # Man Lymphocytes # (Manual) Monocytes # (Manual) Eosinophils # (Manual) Basophils # (Manual) PT INR Fibrinogen dRVVT Confirm Interp Factor V Activity POC ABG pH POC ABG pCO2 POC ABG pO2 ABG pO2 ABG HCO3 ABG Base Excess ABG Hemoglobin Oxyhemoglobin Sodium Potassium Chloride Carbon Dioxide BUN Creatinine Glucose POC Glucose 136 H 177 H 139 H Lactic Acid Calcium Phosphorus Magnesium Direct Bilirubin AST ALT Alkaline Phosphatase Lactate Dehydrogenase Troponin T C-Reactive Protein Total Protein Albumin Prealbumin Triglycerides Cholesterol LDL Cholesterol Direct HDL Cholesterol Urine pH Urine WBC (Auto) Urine Creatinine Urine Total Protein Fluid Total Protein Vancomycin Trough Rheumatoid Factor Complement C4 Miscellaneous Test Crossmatch 12/02/16 12/03/16 12/03/16 23:43 04:00 04:00 WBC 20.4 H RBC 2.74 L Hgb 7.4 L Hct 23.6 L MCV MCH 27 L MCHC RDW 17.1 H Plt Count Lymph % (Auto) [place] % (Auto) Lymph # [place] # Baso # Seg Neutrophils % Seg Neuts % (Manual) 31.0 L Lymphocytes % (Manual) Monocytes % (Manual) Eosinophils % (Manual) Basophils % (Manual) Nucleated RBC % Seg Neutrophils # Seg Neutrophils # Man Lymphocytes # (Manual) Monocytes # (Manual) Eosinophils # (Manual) Basophils # (Manual) PT INR Fibrinogen dRVVT Confirm Interp Factor V Activity POC ABG pH POC ABG pCO2 POC ABG pO2 ABG pO2 ABG HCO3 ABG Base Excess ABG Hemoglobin Oxyhemoglobin Sodium Potassium Chloride Carbon Dioxide BUN 61 H Creatinine 1.6 H Glucose 119 H POC Glucose 158 H Lactic Acid Calcium Phosphorus Magnesium Direct Bilirubin AST ALT Alkaline Phosphatase Lactate Dehydrogenase Troponin T C-Reactive Protein Total Protein Albumin Prealbumin Triglycerides Cholesterol LDL Cholesterol Direct HDL Cholesterol Urine pH Urine WBC (Auto) Urine Creatinine Urine Total Protein Fluid Total Protein Vancomycin Trough Rheumatoid Factor Complement C4 Miscellaneous Test Crossmatch 12/03/16 12/03/16 12/03/16 05:02 12:11 18:16 WBC RBC Hgb Hct MCV MCH MCHC RDW Plt Count Lymph % (Auto) [place] % (Auto) Lymph # [place] # Baso # Seg Neutrophils % Seg Neuts % (Manual) Lymphocytes % (Manual) Monocytes % (Manual) Eosinophils % (Manual) Basophils % (Manual) Nucleated RBC % Seg Neutrophils # Seg Neutrophils # Man Lymphocytes # (Manual) Monocytes # (Manual) Eosinophils # (Manual) Basophils # (Manual) PT INR Fibrinogen dRVVT Confirm Interp Factor V Activity POC ABG pH POC ABG pCO2 POC ABG pO2 ABG pO2 ABG HCO3 ABG Base Excess ABG Hemoglobin Oxyhemoglobin Sodium Potassium Chloride Carbon Dioxide BUN Creatinine Glucose POC Glucose 146 H 157 H 124 H Lactic Acid Calcium Phosphorus Magnesium Direct Bilirubin AST ALT Alkaline Phosphatase Lactate Dehydrogenase Troponin T C-Reactive Protein Total Protein Albumin Prealbumin Triglycerides Cholesterol LDL Cholesterol Direct HDL Cholesterol Urine pH Urine WBC (Auto) Urine Creatinine Urine Total Protein Fluid Total Protein Vancomycin Trough Rheumatoid Factor Complement C4 Miscellaneous Test Crossmatch 12/03/16 12/04/16 12/04/16 23:41 04:00 04:45 WBC RBC Hgb Hct MCV MCH MCHC RDW Plt Count Lymph % (Auto) [place] % (Auto) Lymph # [place] # Baso # Seg Neutrophils % Seg Neuts % (Manual) Lymphocytes % (Manual) Monocytes % (Manual) Eosinophils % (Manual) Basophils % (Manual) Nucleated RBC % Seg Neutrophils # Seg Neutrophils # Man Lymphocytes # (Manual) Monocytes # (Manual) Eosinophils # (Manual) Basophils # (Manual) PT INR Fibrinogen dRVVT Confirm Interp Factor V Activity POC ABG pH POC ABG pCO2 POC ABG pO2 ABG pO2 ABG HCO3 ABG Base Excess ABG Hemoglobin Oxyhemoglobin Sodium Potassium Chloride Carbon Dioxide BUN 76 H Creatinine 1.6 H Glucose POC Glucose 130 H 136 H Lactic Acid Calcium Phosphorus Magnesium Direct Bilirubin AST ALT Alkaline Phosphatase 155 H Lactate Dehydrogenase Troponin T C-Reactive Protein Total Protein 5.5 L Albumin 1.5 L Prealbumin Triglycerides Cholesterol LDL Cholesterol Direct HDL Cholesterol Urine pH Urine WBC (Auto) Urine Creatinine Urine Total Protein Fluid Total Protein Vancomycin Trough Rheumatoid Factor Complement C4 Miscellaneous Test Crossmatch 12/04/16 12/04/16 12/05/16 12:08 17:23 00:10 WBC RBC Hgb Hct MCV MCH MCHC RDW Plt Count Lymph % (Auto) [place] % (Auto) Lymph # [place] # Baso # Seg Neutrophils % Seg Neuts % (Manual) Lymphocytes % (Manual) Monocytes % (Manual) Eosinophils % (Manual) Basophils % (Manual) Nucleated RBC % Seg Neutrophils # Seg Neutrophils # Man Lymphocytes # (Manual) Monocytes # (Manual) Eosinophils # (Manual) Basophils # (Manual) PT INR Fibrinogen dRVVT Confirm Interp Factor V Activity POC ABG pH POC ABG pCO2 POC ABG pO2 ABG pO2 ABG HCO3 ABG Base Excess ABG Hemoglobin Oxyhemoglobin Sodium Potassium Chloride Carbon Dioxide BUN Creatinine Glucose POC Glucose 114 H 129 H 124 H Lactic Acid Calcium Phosphorus Magnesium Direct Bilirubin AST ALT Alkaline Phosphatase Lactate Dehydrogenase Troponin T C-Reactive Protein Total Protein Albumin Prealbumin Triglycerides Cholesterol LDL Cholesterol Direct HDL Cholesterol Urine pH Urine WBC (Auto) Urine Creatinine Urine Total Protein Fluid Total Protein Vancomycin Trough Rheumatoid Factor Complement C4 Miscellaneous Test Crossmatch 12/05/16 12/05/16 12/05/16 05:00 05:00 05:18 WBC RBC Hgb Hct MCV MCH MCHC RDW Plt Count Lymph % (Auto) [place] % (Auto) Lymph # [place] # Baso # Seg Neutrophils % Seg Neuts % (Manual) Lymphocytes % (Manual) Monocytes % (Manual) Eosinophils % (Manual) Basophils % (Manual) Nucleated RBC % Seg Neutrophils # Seg Neutrophils # Man Lymphocytes # (Manual) Monocytes # (Manual) Eosinophils # (Manual) Basophils # (Manual) PT INR Fibrinogen dRVVT Confirm Interp Factor V Activity POC ABG pH POC ABG pCO2 POC ABG pO2 ABG pO2 ABG HCO3 ABG Base Excess ABG Hemoglobin Oxyhemoglobin Sodium Potassium Chloride Carbon Dioxide 21 L BUN 85 H Creatinine 1.9 H Glucose 131 H POC Glucose 154 H Lactic Acid Calcium Phosphorus Magnesium Direct Bilirubin AST ALT Alkaline Phosphatase Lactate Dehydrogenase Troponin T C-Reactive Protein 19.30 H Total Protein Albumin Prealbumin Triglycerides Cholesterol LDL Cholesterol Direct HDL Cholesterol Urine pH Urine WBC (Auto) Urine Creatinine Urine Total Protein Fluid Total Protein Vancomycin Trough Rheumatoid Factor Complement C4 Miscellaneous Test Crossmatch 12/05/16 12/05/16 12/05/16 11:43 17:46 23:25 WBC RBC Hgb Hct MCV MCH MCHC RDW Plt Count Lymph % (Auto) [place] % (Auto) Lymph # [place] # Baso # Seg Neutrophils % Seg Neuts % (Manual) Lymphocytes % (Manual) Monocytes % (Manual) Eosinophils % (Manual) Basophils % (Manual) Nucleated RBC % Seg Neutrophils # Seg Neutrophils # Man Lymphocytes # (Manual) Monocytes # (Manual) Eosinophils # (Manual) Basophils # (Manual) PT INR Fibrinogen dRVVT Confirm Interp Factor V Activity POC ABG pH POC ABG pCO2 POC ABG pO2 ABG pO2 ABG HCO3 ABG Base Excess ABG Hemoglobin Oxyhemoglobin Sodium Potassium Chloride Carbon Dioxide BUN Creatinine Glucose POC Glucose 117 H 113 H 111 H Lactic Acid Calcium Phosphorus Magnesium Direct Bilirubin AST ALT Alkaline Phosphatase Lactate Dehydrogenase Troponin T C-Reactive Protein Total Protein Albumin Prealbumin Triglycerides Cholesterol LDL Cholesterol Direct HDL Cholesterol Urine pH Urine WBC (Auto) Urine Creatinine Urine Total Protein Fluid Total Protein Vancomycin Trough Rheumatoid Factor Complement C4 Miscellaneous Test Crossmatch 12/05/16 12/06/16 12/06/16 Unknown 04:58 06:00 WBC RBC Hgb Hct MCV MCH MCHC RDW Plt Count Lymph % (Auto) [place] % (Auto) Lymph # [place] # Baso # Seg Neutrophils % Seg Neuts % (Manual) Lymphocytes % (Manual) Monocytes % (Manual) Eosinophils % (Manual) Basophils % (Manual) Nucleated RBC % Seg Neutrophils # Seg Neutrophils # Man Lymphocytes # (Manual) Monocytes # (Manual) Eosinophils # (Manual) Basophils # (Manual) PT INR Fibrinogen dRVVT Confirm Interp Factor V Activity POC ABG pH POC ABG pCO2 POC ABG pO2 ABG pO2 75.2 L ABG HCO3 ABG Base Excess -3.4 L ABG Hemoglobin 7.4 L Oxyhemoglobin 94.5 L Sodium Potassium Chloride Carbon Dioxide 20 L BUN 99 H Creatinine 2.1 H Glucose 126 H POC Glucose 145 H Lactic Acid Calcium Phosphorus 4.80 H Magnesium Direct Bilirubin AST ALT Alkaline Phosphatase Lactate Dehydrogenase Troponin T C-Reactive Protein Total Protein Albumin Prealbumin Triglycerides Cholesterol LDL Cholesterol Direct HDL Cholesterol Urine pH Urine WBC (Auto) Urine Creatinine Urine Total Protein Fluid Total Protein Vancomycin Trough Rheumatoid Factor Complement C4 Miscellaneous Test Crossmatch 12/06/16 12/06/16 12/06/16 06:46 11:54 17:55 WBC RBC Hgb 8.3 L Hct 26.4 L MCV MCH MCHC RDW Plt Count Lymph % (Auto) [place] % (Auto) Lymph # [place] # Baso # Seg Neutrophils % Seg Neuts % (Manual) Lymphocytes % (Manual) Monocytes % (Manual) Eosinophils % (Manual) Basophils % (Manual) Nucleated RBC % Seg Neutrophils # Seg Neutrophils # Man Lymphocytes # (Manual) Monocytes # (Manual) Eosinophils # (Manual) Basophils # (Manual) PT INR Fibrinogen dRVVT Confirm Interp Factor V Activity POC ABG pH POC ABG pCO2 POC ABG pO2 ABG pO2 ABG HCO3 ABG Base Excess ABG Hemoglobin Oxyhemoglobin Sodium Potassium Chloride Carbon Dioxide BUN Creatinine Glucose POC Glucose 126 H 157 H Lactic Acid Calcium Phosphorus Magnesium Direct Bilirubin AST ALT Alkaline Phosphatase Lactate Dehydrogenase Troponin T C-Reactive Protein Total Protein Albumin Prealbumin Triglycerides Cholesterol LDL Cholesterol Direct HDL Cholesterol Urine pH Urine WBC (Auto) Urine Creatinine Urine Total Protein Fluid Total Protein Vancomycin Trough Rheumatoid Factor Complement C4 Miscellaneous Test Crossmatch 12/06/16 12/07/16 12/07/16 23:59 05:34 06:30 WBC RBC Hgb Hct MCV MCH MCHC RDW Plt Count Lymph % (Auto) [place] % (Auto) Lymph # [place] # Baso # Seg Neutrophils % Seg Neuts % (Manual) Lymphocytes % (Manual) Monocytes % (Manual) Eosinophils % (Manual) Basophils % (Manual) Nucleated RBC % Seg Neutrophils # Seg Neutrophils # Man Lymphocytes # (Manual) Monocytes # (Manual) Eosinophils # (Manual) Basophils # (Manual) PT INR Fibrinogen dRVVT Confirm Interp Factor V Activity POC ABG pH POC ABG pCO2 POC ABG pO2 ABG pO2 ABG HCO3 ABG Base Excess ABG Hemoglobin Oxyhemoglobin Sodium Potassium Chloride Carbon Dioxide BUN 67 H Creatinine 1.4 H Glucose 126 H POC Glucose 129 H 129 H Lactic Acid Calcium Phosphorus Magnesium Direct Bilirubin AST ALT Alkaline Phosphatase Lactate Dehydrogenase Troponin T C-Reactive Protein Total Protein Albumin Prealbumin Triglycerides Cholesterol LDL Cholesterol Direct HDL Cholesterol Urine pH Urine WBC (Auto) Urine Creatinine Urine Total Protein Fluid Total Protein Vancomycin Trough Rheumatoid Factor Complement C4 Miscellaneous Test Crossmatch 12/07/16 12/07/16 12/07/16 06:30 08:00 09:45 WBC 18.8 H RBC 2.52 L Hgb 6.9 L 6.8 L Hct 21.2 L 21.1 L MCV MCH 27 L MCHC RDW 18.0 H Plt Count Lymph % (Auto) [place] % (Auto) 9.9 H Lymph # [place] # 1.9 H Baso # Seg Neutrophils % 71.8 H Seg Neuts % (Manual) Lymphocytes % (Manual) Monocytes % (Manual) Eosinophils % (Manual) Basophils % (Manual) Nucleated RBC % Seg Neutrophils # 13.5 H Seg Neutrophils # Man Lymphocytes # (Manual) Monocytes # (Manual) Eosinophils # (Manual) Basophils # (Manual) PT INR Fibrinogen dRVVT Confirm Interp Factor V Activity POC ABG pH POC ABG pCO2 POC ABG pO2 ABG pO2 ABG HCO3 ABG Base Excess ABG Hemoglobin Oxyhemoglobin Sodium Potassium Chloride Carbon Dioxide BUN Creatinine Glucose POC Glucose Lactic Acid Calcium Phosphorus Magnesium Direct Bilirubin AST ALT Alkaline Phosphatase Lactate Dehydrogenase Troponin T C-Reactive Protein Total Protein Albumin Prealbumin Triglycerides Cholesterol LDL Cholesterol Direct HDL Cholesterol Urine pH Urine WBC (Auto) Urine Creatinine Urine Total Protein Fluid Total Protein Vancomycin Trough Rheumatoid Factor Complement C4 Miscellaneous Test Crossmatch See Detail 12/07/16 12/07/16 12/07/16 11:44 18:19 23:59 WBC RBC Hgb Hct MCV MCH MCHC RDW Plt Count Lymph % (Auto) [place] % (Auto) Lymph # [place] # Baso # Seg Neutrophils % Seg Neuts % (Manual) Lymphocytes % (Manual) Monocytes % (Manual) Eosinophils % (Manual) Basophils % (Manual) Nucleated RBC % Seg Neutrophils # Seg Neutrophils # Man Lymphocytes # (Manual) Monocytes # (Manual) Eosinophils # (Manual) Basophils # (Manual) PT INR Fibrinogen dRVVT Confirm Interp Factor V Activity POC ABG pH POC ABG pCO2 POC ABG pO2 ABG pO2 ABG HCO3 ABG Base Excess ABG Hemoglobin Oxyhemoglobin Sodium Potassium Chloride Carbon Dioxide BUN Creatinine Glucose POC Glucose 137 H 138 H 133 H Lactic Acid Calcium Phosphorus Magnesium Direct Bilirubin AST ALT Alkaline Phosphatase Lactate Dehydrogenase Troponin T C-Reactive Protein Total Protein Albumin Prealbumin Triglycerides Cholesterol LDL Cholesterol Direct HDL Cholesterol Urine pH Urine WBC (Auto) Urine Creatinine Urine Total Protein Fluid Total Protein Vancomycin Trough Rheumatoid Factor Complement C4 Miscellaneous Test Crossmatch 12/08/16 12/08/16 12/08/16 05:25 05:30 05:30 WBC 23.8 H RBC 2.88 L Hgb 8.1 L Hct 24.3 L MCV MCH MCHC RDW 16.7 H Plt Count Lymph % (Auto) [place] % (Auto) Lymph # [place] # Baso # Seg Neutrophils % Seg Neuts % (Manual) 76.0 H Lymphocytes % (Manual) 9.0 L Monocytes % (Manual) 9.0 H Eosinophils % (Manual) Basophils % (Manual) Nucleated RBC % Seg Neutrophils # Seg Neutrophils # Man 18.1 H Lymphocytes # (Manual) Monocytes # (Manual) 2.1 H Eosinophils # (Manual) Basophils # (Manual) PT INR Fibrinogen dRVVT Confirm Interp Factor V Activity POC ABG pH POC ABG pCO2 POC ABG pO2 ABG pO2 ABG HCO3 ABG Base Excess ABG Hemoglobin Oxyhemoglobin Sodium Potassium Chloride Carbon Dioxide 21 L BUN 76 H Creatinine 1.6 H Glucose 133 H POC Glucose 177 H Lactic Acid Calcium Phosphorus Magnesium Direct Bilirubin AST ALT Alkaline Phosphatase Lactate Dehydrogenase Troponin T C-Reactive Protein Total Protein Albumin Prealbumin Triglycerides Cholesterol LDL Cholesterol Direct HDL Cholesterol Urine pH Urine WBC (Auto) Urine Creatinine Urine Total Protein Fluid Total Protein Vancomycin Trough Rheumatoid Factor Complement C4 Miscellaneous Test Crossmatch 12/08/16 12/08/16 12/09/16 11:45 18:00 00:00 WBC RBC Hgb Hct MCV MCH MCHC RDW Plt Count Lymph % (Auto) [place] % (Auto) Lymph # [place] # Baso # Seg Neutrophils % Seg Neuts % (Manual) Lymphocytes % (Manual) Monocytes % (Manual) Eosinophils % (Manual) Basophils % (Manual) Nucleated RBC % Seg Neutrophils # Seg Neutrophils # Man Lymphocytes # (Manual) Monocytes # (Manual) Eosinophils # (Manual) Basophils # (Manual) PT INR Fibrinogen dRVVT Confirm Interp Factor V Activity POC ABG pH POC ABG pCO2 POC ABG pO2 ABG pO2 ABG HCO3 ABG Base Excess ABG Hemoglobin Oxyhemoglobin Sodium Potassium Chloride Carbon Dioxide BUN Creatinine Glucose POC Glucose 163 H 123 H 137 H Lactic Acid Calcium Phosphorus Magnesium Direct Bilirubin AST ALT Alkaline Phosphatase Lactate Dehydrogenase Troponin T C-Reactive Protein Total Protein Albumin Prealbumin Triglycerides Cholesterol LDL Cholesterol Direct HDL Cholesterol Urine pH Urine WBC (Auto) Urine Creatinine Urine Total Protein Fluid Total Protein Vancomycin Trough Rheumatoid Factor Complement C4 Miscellaneous Test Crossmatch 12/09/16 12/09/16 12/09/16 05:34 06:00 06:00 WBC 15.5 H RBC 2.87 L Hgb 8.0 L Hct 24.2 L MCV MCH MCHC RDW 17.2 H Plt Count Lymph % (Auto) [place] % (Auto) 11.6 H Lymph # [place] # 1.8 H Baso # Seg Neutrophils % 70.8 H Seg Neuts % (Manual) Lymphocytes % (Manual) Monocytes % (Manual) Eosinophils % (Manual) Basophils % (Manual) Nucleated RBC % Seg Neutrophils # 11.0 H Seg Neutrophils # Man Lymphocytes # (Manual) Monocytes # (Manual) Eosinophils # (Manual) Basophils # (Manual) PT INR Fibrinogen dRVVT Confirm Interp Factor V Activity POC ABG pH POC ABG pCO2 POC ABG pO2 ABG pO2 ABG HCO3 ABG Base Excess ABG Hemoglobin Oxyhemoglobin Sodium Potassium Chloride Carbon Dioxide BUN 51 H Creatinine Glucose 117 H POC Glucose 136 H Lactic Acid Calcium Phosphorus Magnesium Direct Bilirubin AST ALT Alkaline Phosphatase Lactate Dehydrogenase Troponin T C-Reactive Protein Total Protein Albumin Prealbumin Triglycerides Cholesterol LDL Cholesterol Direct HDL Cholesterol Urine pH Urine WBC (Auto) Urine Creatinine Urine Total Protein Fluid Total Protein Vancomycin Trough Rheumatoid Factor Complement C4 Miscellaneous Test Crossmatch 12/09/16 12/09/16 12/09/16 12:29 17:52 23:10 WBC RBC Hgb Hct MCV MCH MCHC RDW Plt Count Lymph % (Auto) [place] % (Auto) Lymph # [place] # Baso # Seg Neutrophils % Seg Neuts % (Manual) Lymphocytes % (Manual) Monocytes % (Manual) Eosinophils % (Manual) Basophils % (Manual) Nucleated RBC % Seg Neutrophils # Seg Neutrophils # Man Lymphocytes # (Manual) Monocytes # (Manual) Eosinophils # (Manual) Basophils # (Manual) PT INR Fibrinogen dRVVT Confirm Interp Factor V Activity POC ABG pH POC ABG pCO2 POC ABG pO2 ABG pO2 ABG HCO3 ABG Base Excess ABG Hemoglobin Oxyhemoglobin Sodium Potassium Chloride Carbon Dioxide BUN Creatinine Glucose POC Glucose 139 H 140 H 129 H Lactic Acid Calcium Phosphorus Magnesium Direct Bilirubin AST ALT Alkaline Phosphatase Lactate Dehydrogenase Troponin T C-Reactive Protein Total Protein Albumin Prealbumin Triglycerides Cholesterol LDL Cholesterol Direct HDL Cholesterol Urine pH Urine WBC (Auto) Urine Creatinine Urine Total Protein Fluid Total Protein Vancomycin Trough Rheumatoid Factor Complement C4 Miscellaneous Test Crossmatch 12/10/16 12/10/16 12/10/16 05:00 05:00 06:54 WBC 15.7 H RBC 2.87 L Hgb 8.2 L Hct 24.4 L MCV MCH MCHC RDW 17.2 H Plt Count Lymph % (Auto) [place] % (Auto) 8.3 H Lymph # [place] # 1.3 H Baso # Seg Neutrophils % 72.8 H Seg Neuts % (Manual) Lymphocytes % (Manual) Monocytes % (Manual) Eosinophils % (Manual) Basophils % (Manual) Nucleated RBC % Seg Neutrophils # 11.4 H Seg Neutrophils # Man Lymphocytes # (Manual) Monocytes # (Manual) Eosinophils # (Manual) Basophils # (Manual) PT INR Fibrinogen dRVVT Confirm Interp Factor V Activity POC ABG pH POC ABG pCO2 POC ABG pO2 ABG pO2 ABG HCO3 ABG Base Excess ABG Hemoglobin Oxyhemoglobin Sodium Potassium Chloride Carbon Dioxide BUN 64 H Creatinine 1.4 H Glucose 134 H POC Glucose 154 H Lactic Acid Calcium Phosphorus Magnesium Direct Bilirubin AST ALT Alkaline Phosphatase Lactate Dehydrogenase Troponin T C-Reactive Protein Total Protein Albumin Prealbumin Triglycerides Cholesterol LDL Cholesterol Direct HDL Cholesterol Urine pH Urine WBC (Auto) Urine Creatinine Urine Total Protein Fluid Total Protein Vancomycin Trough Rheumatoid Factor Complement C4 Miscellaneous Test Crossmatch 12/10/16 12/10/16 12/10/16 11:58 17:29 23:52 WBC RBC Hgb Hct MCV MCH MCHC RDW Plt Count Lymph % (Auto) [place] % (Auto) Lymph # [place] # Baso # Seg Neutrophils % Seg Neuts % (Manual) Lymphocytes % (Manual) Monocytes % (Manual) Eosinophils % (Manual) Basophils % (Manual) Nucleated RBC % Seg Neutrophils # Seg Neutrophils # Man Lymphocytes # (Manual) Monocytes # (Manual) Eosinophils # (Manual) Basophils # (Manual) PT INR Fibrinogen dRVVT Confirm Interp Factor V Activity POC ABG pH POC ABG pCO2 POC ABG pO2 ABG pO2 ABG HCO3 ABG Base Excess ABG Hemoglobin Oxyhemoglobin Sodium Potassium Chloride Carbon Dioxide BUN Creatinine Glucose POC Glucose 144 H 163 H 125 H Lactic Acid Calcium Phosphorus Magnesium Direct Bilirubin AST ALT Alkaline Phosphatase Lactate Dehydrogenase Troponin T C-Reactive Protein Total Protein Albumin Prealbumin Triglycerides Cholesterol LDL Cholesterol Direct HDL Cholesterol Urine pH Urine WBC (Auto) Urine Creatinine Urine Total Protein Fluid Total Protein Vancomycin Trough Rheumatoid Factor Complement C4 Miscellaneous Test Crossmatch 12/11/16 12/11/16 12/11/16 05:38 06:30 06:30 WBC 14.4 H RBC 2.76 L Hgb 7.7 L Hct 23.4 L MCV MCH MCHC RDW 17.2 H Plt Count Lymph % (Auto) [place] % (Auto) 8.8 H Lymph # [place] # 1.3 H Baso # Seg Neutrophils % 72.5 H Seg Neuts % (Manual) Lymphocytes % (Manual) Monocytes % (Manual) Eosinophils % (Manual) Basophils % (Manual) Nucleated RBC % Seg Neutrophils # 10.5 H Seg Neutrophils # Man Lymphocytes # (Manual) Monocytes # (Manual) Eosinophils # (Manual) Basophils # (Manual) PT INR Fibrinogen dRVVT Confirm Interp Factor V Activity POC ABG pH POC ABG pCO2 POC ABG pO2 ABG pO2 ABG HCO3 ABG Base Excess ABG Hemoglobin Oxyhemoglobin Sodium Potassium Chloride Carbon Dioxide BUN 43 H Creatinine Glucose 124 H POC Glucose 141 H Lactic Acid Calcium 8.3 L Phosphorus Magnesium 1.60 L Direct Bilirubin AST ALT Alkaline Phosphatase Lactate Dehydrogenase Troponin T C-Reactive Protein Total Protein Albumin Prealbumin Triglycerides Cholesterol LDL Cholesterol Direct HDL Cholesterol Urine pH Urine WBC (Auto) Urine Creatinine Urine Total Protein Fluid Total Protein Vancomycin Trough Rheumatoid Factor Complement C4 Miscellaneous Test Crossmatch 12/11/16 12/11/16 12/11/16 11:15 17:59 23:48 WBC RBC Hgb Hct MCV MCH MCHC RDW Plt Count Lymph % (Auto) [place] % (Auto) Lymph # [place] # Baso # Seg Neutrophils % Seg Neuts % (Manual) Lymphocytes % (Manual) Monocytes % (Manual) Eosinophils % (Manual) Basophils % (Manual) Nucleated RBC % Seg Neutrophils # Seg Neutrophils # Man Lymphocytes # (Manual) Monocytes # (Manual) Eosinophils # (Manual) Basophils # (Manual) PT INR Fibrinogen dRVVT Confirm Interp Factor V Activity POC ABG pH POC ABG pCO2 POC ABG pO2 ABG pO2 ABG HCO3 ABG Base Excess ABG Hemoglobin Oxyhemoglobin Sodium Potassium Chloride Carbon Dioxide BUN Creatinine Glucose POC Glucose 188 H 106 H 119 H Lactic Acid Calcium Phosphorus Magnesium Direct Bilirubin AST ALT Alkaline Phosphatase Lactate Dehydrogenase Troponin T C-Reactive Protein Total Protein Albumin Prealbumin Triglycerides Cholesterol LDL Cholesterol Direct HDL Cholesterol Urine pH Urine WBC (Auto) Urine Creatinine Urine Total Protein Fluid Total Protein Vancomycin Trough Rheumatoid Factor Complement C4 Miscellaneous Test Crossmatch 12/12/16 12/12/16 12/12/16 05:00 06:01 12:20 WBC 16.7 H RBC 2.87 L Hgb 8.0 L Hct 24.2 L MCV MCH MCHC RDW 17.6 H Plt Count Lymph % (Auto) [place] % (Auto) Lymph # [place] # 1.2 H Baso # Seg Neutrophils % 75.3 H Seg Neuts % (Manual) Lymphocytes % (Manual) Monocytes % (Manual) Eosinophils % (Manual) Basophils % (Manual) Nucleated RBC % Seg Neutrophils # 12.6 H Seg Neutrophils # Man Lymphocytes # (Manual) Monocytes # (Manual) Eosinophils # (Manual) Basophils # (Manual) PT INR Fibrinogen dRVVT Confirm Interp Factor V Activity POC ABG pH POC ABG pCO2 POC ABG pO2 ABG pO2 ABG HCO3 ABG Base Excess ABG Hemoglobin Oxyhemoglobin Sodium Potassium Chloride Carbon Dioxide BUN Creatinine Glucose POC Glucose 134 H 149 H Lactic Acid Calcium Phosphorus Magnesium Direct Bilirubin AST ALT Alkaline Phosphatase Lactate Dehydrogenase Troponin T C-Reactive Protein Total Protein Albumin Prealbumin Triglycerides Cholesterol LDL Cholesterol Direct HDL Cholesterol Urine pH Urine WBC (Auto) Urine Creatinine Urine Total Protein Fluid Total Protein Vancomycin Trough Rheumatoid Factor Complement C4 Miscellaneous Test Crossmatch 12/12/16 12/12/16 12/12/16 17:38 23:01 Unknown WBC RBC Hgb Hct MCV MCH MCHC RDW Plt Count Lymph % (Auto) [place] % (Auto) Lymph # [place] # Baso # Seg Neutrophils % Seg Neuts % (Manual) Lymphocytes % (Manual) Monocytes % (Manual) Eosinophils % (Manual) Basophils % (Manual) Nucleated RBC % Seg Neutrophils # Seg Neutrophils # Man Lymphocytes # (Manual) Monocytes # (Manual) Eosinophils # (Manual) Basophils # (Manual) PT INR Fibrinogen dRVVT Confirm Interp Factor V Activity POC ABG pH POC ABG pCO2 POC ABG pO2 ABG pO2 ABG HCO3 ABG Base Excess ABG Hemoglobin Oxyhemoglobin Sodium Potassium Chloride Carbon Dioxide BUN 60 H Creatinine 1.3 H Glucose 126 H POC Glucose 127 H 144 H Lactic Acid Calcium Phosphorus Magnesium Direct Bilirubin AST ALT Alkaline Phosphatase Lactate Dehydrogenase Troponin T C-Reactive Protein Total Protein Albumin Prealbumin Triglycerides Cholesterol LDL Cholesterol Direct HDL Cholesterol Urine pH Urine WBC (Auto) Urine Creatinine Urine Total Protein Fluid Total Protein Vancomycin Trough Rheumatoid Factor Complement C4 Miscellaneous Test Crossmatch 12/13/16 12/13/16 12/13/16 04:00 04:00 05:19 WBC 18.7 H RBC 2.89 L Hgb 8.3 L Hct 24.6 L MCV MCH MCHC RDW 17.5 H Plt Count Lymph % (Auto) [place] % (Auto) Lymph # [place] # 1.3 H Baso # Seg Neutrophils % 71.5 H Seg Neuts % (Manual) Lymphocytes % (Manual) Monocytes % (Manual) Eosinophils % (Manual) Basophils % (Manual) Nucleated RBC % Seg Neutrophils # 13.4 H Seg Neutrophils # Man Lymphocytes # (Manual) Monocytes # (Manual) Eosinophils # (Manual) Basophils # (Manual) PT INR Fibrinogen dRVVT Confirm Interp Factor V Activity POC ABG pH POC ABG pCO2 POC ABG pO2 ABG pO2 ABG HCO3 ABG Base Excess ABG Hemoglobin Oxyhemoglobin Sodium Potassium Chloride Carbon Dioxide BUN 73 H Creatinine 1.5 H Glucose 141 H POC Glucose 171 H Lactic Acid Calcium Phosphorus Magnesium Direct Bilirubin AST ALT Alkaline Phosphatase Lactate Dehydrogenase Troponin T C-Reactive Protein Total Protein Albumin Prealbumin Triglycerides Cholesterol LDL Cholesterol Direct HDL Cholesterol Urine pH Urine WBC (Auto) Urine Creatinine Urine Total Protein Fluid Total Protein Vancomycin Trough Rheumatoid Factor Complement C4 Miscellaneous Test Crossmatch 12/13/16 12/13/16 12/14/16 12:28 16:48 00:01 WBC RBC Hgb Hct MCV MCH MCHC RDW Plt Count Lymph % (Auto) [place] % (Auto) Lymph # [place] # Baso # Seg Neutrophils % Seg Neuts % (Manual) Lymphocytes % (Manual) Monocytes % (Manual) Eosinophils % (Manual) Basophils % (Manual) Nucleated RBC % Seg Neutrophils # Seg Neutrophils # Man Lymphocytes # (Manual) Monocytes # (Manual) Eosinophils # (Manual) Basophils # (Manual) PT INR Fibrinogen dRVVT Confirm Interp Factor V Activity POC ABG pH POC ABG pCO2 POC ABG pO2 ABG pO2 ABG HCO3 ABG Base Excess ABG Hemoglobin Oxyhemoglobin Sodium Potassium Chloride Carbon Dioxide BUN Creatinine Glucose POC Glucose 206 H 173 H 139 H Lactic Acid Calcium Phosphorus Magnesium Direct Bilirubin AST ALT Alkaline Phosphatase Lactate Dehydrogenase Troponin T C-Reactive Protein Total Protein Albumin Prealbumin Triglycerides Cholesterol LDL Cholesterol Direct HDL Cholesterol Urine pH Urine WBC (Auto) Urine Creatinine Urine Total Protein Fluid Total Protein Vancomycin Trough Rheumatoid Factor Complement C4 Miscellaneous Test Crossmatch 12/14/16 12/14/16 12/14/16 05:16 06:10 11:17 WBC RBC Hgb Hct MCV MCH MCHC RDW Plt Count Lymph % (Auto) [place] % (Auto) Lymph # [place] # Baso # Seg Neutrophils % Seg Neuts % (Manual) Lymphocytes % (Manual) Monocytes % (Manual) Eosinophils % (Manual) Basophils % (Manual) Nucleated RBC % Seg Neutrophils # Seg Neutrophils # Man Lymphocytes # (Manual) Monocytes # (Manual) Eosinophils # (Manual) Basophils # (Manual) PT INR Fibrinogen dRVVT Confirm Interp Factor V Activity POC ABG pH POC ABG pCO2 POC ABG pO2 ABG pO2 ABG HCO3 ABG Base Excess ABG Hemoglobin Oxyhemoglobin Sodium Potassium Chloride Carbon Dioxide BUN 57 H Creatinine 1.4 H Glucose 135 H POC Glucose 158 H 137 H Lactic Acid Calcium Phosphorus Magnesium Direct Bilirubin AST ALT Alkaline Phosphatase Lactate Dehydrogenase Troponin T C-Reactive Protein Total Protein Albumin Prealbumin Triglycerides Cholesterol LDL Cholesterol Direct HDL Cholesterol Urine pH Urine WBC (Auto) Urine Creatinine Urine Total Protein Fluid Total Protein Vancomycin Trough Rheumatoid Factor Complement C4 Miscellaneous Test Crossmatch 12/14/16 12/14/16 12/15/16 17:52 23:27 04:00 WBC RBC Hgb Hct MCV MCH MCHC RDW Plt Count Lymph % (Auto) [place] % (Auto) Lymph # [place] # Baso # Seg Neutrophils % Seg Neuts % (Manual) Lymphocytes % (Manual) Monocytes % (Manual) Eosinophils % (Manual) Basophils % (Manual) Nucleated RBC % Seg Neutrophils # Seg Neutrophils # Man Lymphocytes # (Manual) Monocytes # (Manual) Eosinophils # (Manual) Basophils # (Manual) PT INR Fibrinogen dRVVT Confirm Interp Factor V Activity POC ABG pH POC ABG pCO2 POC ABG pO2 ABG pO2 ABG HCO3 ABG Base Excess ABG Hemoglobin Oxyhemoglobin Sodium Potassium Chloride 97.9 L Carbon Dioxide BUN 75 H Creatinine 1.6 H Glucose 122 H POC Glucose 149 H 163 H Lactic Acid Calcium Phosphorus 5.20 H Magnesium Direct Bilirubin AST ALT Alkaline Phosphatase Lactate Dehydrogenase Troponin T C-Reactive Protein Total Protein Albumin Prealbumin Triglycerides Cholesterol LDL Cholesterol Direct HDL Cholesterol Urine pH Urine WBC (Auto) Urine Creatinine Urine Total Protein Fluid Total Protein Vancomycin Trough Rheumatoid Factor Complement C4 Miscellaneous Test Crossmatch 12/15/16 12/15/16 12/15/16 05:50 11:24 17:01 WBC RBC Hgb Hct MCV MCH MCHC RDW Plt Count Lymph % (Auto) [place] % (Auto) Lymph # [place] # Baso # Seg Neutrophils % Seg Neuts % (Manual) Lymphocytes % (Manual) Monocytes % (Manual) Eosinophils % (Manual) Basophils % (Manual) Nucleated RBC % Seg Neutrophils # Seg Neutrophils # Man Lymphocytes # (Manual) Monocytes # (Manual) Eosinophils # (Manual) Basophils # (Manual) PT INR Fibrinogen dRVVT Confirm Interp Factor V Activity POC ABG pH POC ABG pCO2 POC ABG pO2 ABG pO2 ABG HCO3 ABG Base Excess ABG Hemoglobin Oxyhemoglobin Sodium Potassium Chloride Carbon Dioxide BUN Creatinine Glucose POC Glucose 150 H 146 H 167 H Lactic Acid Calcium Phosphorus Magnesium Direct Bilirubin AST ALT Alkaline Phosphatase Lactate Dehydrogenase Troponin T C-Reactive Protein Total Protein Albumin Prealbumin Triglycerides Cholesterol LDL Cholesterol Direct HDL Cholesterol Urine pH Urine WBC (Auto) Urine Creatinine Urine Total Protein Fluid Total Protein Vancomycin Trough Rheumatoid Factor Complement C4 Miscellaneous Test Crossmatch 12/15/16 12/16/16 12/16/16 23:34 05:25 11:24 WBC RBC Hgb Hct MCV MCH MCHC RDW Plt Count Lymph % (Auto) [place] % (Auto) Lymph # [place] # Baso # Seg Neutrophils % Seg Neuts % (Manual) Lymphocytes % (Manual) Monocytes % (Manual) Eosinophils % (Manual) Basophils % (Manual) Nucleated RBC % Seg Neutrophils # Seg Neutrophils # Man Lymphocytes # (Manual) Monocytes # (Manual) Eosinophils # (Manual) Basophils # (Manual) PT INR Fibrinogen dRVVT Confirm Interp Factor V Activity POC ABG pH POC ABG pCO2 POC ABG pO2 ABG pO2 ABG HCO3 ABG Base Excess ABG Hemoglobin Oxyhemoglobin Sodium Potassium Chloride Carbon Dioxide BUN Creatinine Glucose POC Glucose 127 H 139 H 165 H Lactic Acid Calcium Phosphorus Magnesium Direct Bilirubin AST ALT Alkaline Phosphatase Lactate Dehydrogenase Troponin T C-Reactive Protein Total Protein Albumin Prealbumin Triglycerides Cholesterol LDL Cholesterol Direct HDL Cholesterol Urine pH Urine WBC (Auto) Urine Creatinine Urine Total Protein Fluid Total Protein Vancomycin Trough Rheumatoid Factor Complement C4 Miscellaneous Test Crossmatch 12/16/16 12/16/16 12/16/16 15:30 16:25 17:31 WBC 17.8 H RBC 2.38 L Hgb 6.4 L Hct 20.3 L MCV MCH 27 L MCHC RDW 17.4 H Plt Count Lymph % (Auto) [place] % (Auto) Lymph # [place] # Baso # Seg Neutrophils % Seg Neuts % (Manual) Lymphocytes % (Manual) Monocytes % (Manual) 10.0 H Eosinophils % (Manual) Basophils % (Manual) Nucleated RBC % Seg Neutrophils # Seg Neutrophils # Man 8.5 H Lymphocytes # (Manual) Monocytes # (Manual) 1.8 H Eosinophils # (Manual) Basophils # (Manual) PT INR Fibrinogen dRVVT Confirm Interp Factor V Activity POC ABG pH POC ABG pCO2 POC ABG pO2 ABG pO2 ABG HCO3 ABG Base Excess ABG Hemoglobin Oxyhemoglobin Sodium Potassium Chloride Carbon Dioxide BUN Creatinine Glucose POC Glucose 176 H Lactic Acid Calcium Phosphorus Magnesium Direct Bilirubin AST ALT Alkaline Phosphatase Lactate Dehydrogenase Troponin T C-Reactive Protein Total Protein Albumin Prealbumin Triglycerides Cholesterol LDL Cholesterol Direct HDL Cholesterol Urine pH Urine WBC (Auto) Urine Creatinine Urine Total Protein Fluid Total Protein Vancomycin Trough Rheumatoid Factor Complement C4 Miscellaneous Test Crossmatch See Detail 12/17/16 12/17/16 12/17/16 00:14 04:00 05:00 WBC 20.0 H RBC 2.99 L Hgb 8.5 L Hct 25.7 L MCV MCH MCHC RDW 17.2 H Plt Count Lymph % (Auto) [place] % (Auto) Lymph # [place] # Baso # Seg Neutrophils % Seg Neuts % (Manual) Lymphocytes % (Manual) Monocytes % (Manual) Eosinophils % (Manual) Basophils % (Manual) Nucleated RBC % Seg Neutrophils # Seg Neutrophils # Man Lymphocytes # (Manual) Monocytes # (Manual) Eosinophils # (Manual) Basophils # (Manual) PT INR Fibrinogen dRVVT Confirm Interp Factor V Activity POC ABG pH POC ABG pCO2 POC ABG pO2 ABG pO2 ABG HCO3 ABG Base Excess ABG Hemoglobin Oxyhemoglobin Sodium Potassium Chloride 97.7 L Carbon Dioxide BUN 73 H Creatinine 1.7 H Glucose 136 H POC Glucose 148 H Lactic Acid Calcium Phosphorus 2.20 L Magnesium 2.70 H Direct Bilirubin AST ALT Alkaline Phosphatase Lactate Dehydrogenase Troponin T C-Reactive Protein Total Protein Albumin Prealbumin Triglycerides Cholesterol LDL Cholesterol Direct HDL Cholesterol Urine pH Urine WBC (Auto) Urine Creatinine Urine Total Protein Fluid Total Protein Vancomycin Trough Rheumatoid Factor Complement C4 Miscellaneous Test Crossmatch 12/17/16 12/17/16 12/17/16 05:39 12:50 16:32 WBC RBC Hgb Hct MCV MCH MCHC RDW Plt Count Lymph % (Auto) [place] % (Auto) Lymph # [place] # Baso # Seg Neutrophils % Seg Neuts % (Manual) Lymphocytes % (Manual) Monocytes % (Manual) Eosinophils % (Manual) Basophils % (Manual) Nucleated RBC % Seg Neutrophils # Seg Neutrophils # Man Lymphocytes # (Manual) Monocytes # (Manual) Eosinophils # (Manual) Basophils # (Manual) PT INR Fibrinogen dRVVT Confirm Interp Factor V Activity POC ABG pH POC ABG pCO2 POC ABG pO2 ABG pO2 ABG HCO3 ABG Base Excess ABG Hemoglobin Oxyhemoglobin Sodium Potassium Chloride Carbon Dioxide BUN Creatinine Glucose POC Glucose 162 H 146 H 169 H Lactic Acid Calcium Phosphorus Magnesium Direct Bilirubin AST ALT Alkaline Phosphatase Lactate Dehydrogenase Troponin T C-Reactive Protein Total Protein Albumin Prealbumin Triglycerides Cholesterol LDL Cholesterol Direct HDL Cholesterol Urine pH Urine WBC (Auto) Urine Creatinine Urine Total Protein Fluid Total Protein Vancomycin Trough Rheumatoid Factor Complement C4 Miscellaneous Test Crossmatch 12/17/16 12/18/16 12/18/16 23:57 05:00 05:32 WBC RBC Hgb Hct MCV MCH MCHC RDW Plt Count Lymph % (Auto) [place] % (Auto) Lymph # [place] # Baso # Seg Neutrophils % Seg Neuts % (Manual) Lymphocytes % (Manual) Monocytes % (Manual) Eosinophils % (Manual) Basophils % (Manual) Nucleated RBC % Seg Neutrophils # Seg Neutrophils # Man Lymphocytes # (Manual) Monocytes # (Manual) Eosinophils # (Manual) Basophils # (Manual) PT INR Fibrinogen dRVVT Confirm Interp Factor V Activity POC ABG pH POC ABG pCO2 POC ABG pO2 ABG pO2 ABG HCO3 ABG Base Excess ABG Hemoglobin Oxyhemoglobin Sodium Potassium Chloride 97.0 L Carbon Dioxide BUN 63 H Creatinine 1.4 H Glucose 174 H POC Glucose 145 H 201 H Lactic Acid Calcium Phosphorus 1.70 L D Magnesium Direct Bilirubin AST ALT Alkaline Phosphatase 257 H Lactate Dehydrogenase Troponin T C-Reactive Protein Total Protein 5.9 L Albumin 1.8 L Prealbumin Triglycerides Cholesterol LDL Cholesterol Direct HDL Cholesterol Urine pH Urine WBC (Auto) Urine Creatinine Urine Total Protein Fluid Total Protein Vancomycin Trough Rheumatoid Factor Complement C4 Miscellaneous Test Crossmatch 12/18/16 12/18/16 12/18/16 11:43 16:52 23:52 WBC RBC Hgb Hct MCV MCH MCHC RDW Plt Count Lymph % (Auto) [place] % (Auto) Lymph # [place] # Baso # Seg Neutrophils % Seg Neuts % (Manual) Lymphocytes % (Manual) Monocytes % (Manual) Eosinophils % (Manual) Basophils % (Manual) Nucleated RBC % Seg Neutrophils # Seg Neutrophils # Man Lymphocytes # (Manual) Monocytes # (Manual) Eosinophils # (Manual) Basophils # (Manual) PT INR Fibrinogen dRVVT Confirm Interp Factor V Activity POC ABG pH POC ABG pCO2 POC ABG pO2 ABG pO2 ABG HCO3 ABG Base Excess ABG Hemoglobin Oxyhemoglobin Sodium Potassium Chloride Carbon Dioxide BUN Creatinine Glucose POC Glucose 177 H 110 H 162 H Lactic Acid Calcium Phosphorus Magnesium Direct Bilirubin AST ALT Alkaline Phosphatase Lactate Dehydrogenase Troponin T C-Reactive Protein Total Protein Albumin Prealbumin Triglycerides Cholesterol LDL Cholesterol Direct HDL Cholesterol Urine pH Urine WBC (Auto) Urine Creatinine Urine Total Protein Fluid Total Protein Vancomycin Trough Rheumatoid Factor Complement C4 Miscellaneous Test Crossmatch 12/19/16 12/19/16 12/19/16 05:02 05:24 09:30 WBC 20.1 H RBC 2.73 L Hgb 7.6 L Hct 23.6 L MCV MCH MCHC RDW 17.6 H Plt Count Lymph % (Auto) [place] % (Auto) Lymph # [place] # Baso # Seg Neutrophils % Seg Neuts % (Manual) Lymphocytes % (Manual) 13.0 L Monocytes % (Manual) Eosinophils % (Manual) Basophils % (Manual) Nucleated RBC % 1.0 H Seg Neutrophils # Seg Neutrophils # Man 12.9 H Lymphocytes # (Manual) Monocytes # (Manual) 1.4 H Eosinophils # (Manual) Basophils # (Manual) 0.2 H PT INR Fibrinogen dRVVT Confirm Interp Factor V Activity POC ABG pH POC ABG pCO2 POC ABG pO2 ABG pO2 ABG HCO3 ABG Base Excess ABG Hemoglobin Oxyhemoglobin Sodium Potassium Chloride 97.8 L Carbon Dioxide BUN 84 H Creatinine 1.6 H Glucose 133 H POC Glucose 134 H Lactic Acid Calcium Phosphorus Magnesium Direct Bilirubin AST ALT Alkaline Phosphatase Lactate Dehydrogenase Troponin T C-Reactive Protein Total Protein Albumin Prealbumin Triglycerides Cholesterol LDL Cholesterol Direct HDL Cholesterol Urine pH Urine WBC (Auto) Urine Creatinine Urine Total Protein Fluid Total Protein Vancomycin Trough Rheumatoid Factor Complement C4 Miscellaneous Test Crossmatch 12/19/16 12/19/16 12/19/16 09:36 11:12 18:29 WBC RBC Hgb Hct MCV MCH MCHC RDW Plt Count Lymph % (Auto) [place] % (Auto) Lymph # [place] # Baso # Seg Neutrophils % Seg Neuts % (Manual) Lymphocytes % (Manual) Monocytes % (Manual) Eosinophils % (Manual) Basophils % (Manual) Nucleated RBC % Seg Neutrophils # Seg Neutrophils # Man Lymphocytes # (Manual) Monocytes # (Manual) Eosinophils # (Manual) Basophils # (Manual) PT INR Fibrinogen dRVVT Confirm Interp Factor V Activity POC ABG pH 7.503 H POC ABG pCO2 30.1 L POC ABG pO2 ABG pO2 ABG HCO3 ABG Base Excess ABG Hemoglobin Oxyhemoglobin Sodium Potassium Chloride Carbon Dioxide BUN Creatinine Glucose POC Glucose 138 H 156 H Lactic Acid Calcium Phosphorus Magnesium Direct Bilirubin AST ALT Alkaline Phosphatase Lactate Dehydrogenase Troponin T C-Reactive Protein Total Protein Albumin Prealbumin Triglycerides Cholesterol LDL Cholesterol Direct HDL Cholesterol Urine pH Urine WBC (Auto) Urine Creatinine Urine Total Protein Fluid Total Protein Vancomycin Trough Rheumatoid Factor Complement C4 Miscellaneous Test Crossmatch 12/20/16 12/20/16 12/20/16 00:03 06:17 07:07 WBC RBC Hgb Hct MCV MCH MCHC RDW Plt Count Lymph % (Auto) [place] % (Auto) Lymph # [place] # Baso # Seg Neutrophils % Seg Neuts % (Manual) Lymphocytes % (Manual) Monocytes % (Manual) Eosinophils % (Manual) Basophils % (Manual) Nucleated RBC % Seg Neutrophils # Seg Neutrophils # Man Lymphocytes # (Manual) Monocytes # (Manual) Eosinophils # (Manual) Basophils # (Manual) PT INR Fibrinogen dRVVT Confirm Interp Factor V Activity POC ABG pH POC ABG pCO2 POC ABG pO2 ABG pO2 ABG HCO3 ABG Base Excess ABG Hemoglobin Oxyhemoglobin Sodium Potassium Chloride 97.1 L Carbon Dioxide 20 L BUN 97 H Creatinine 1.8 H Glucose 153 H POC Glucose 152 H 175 H Lactic Acid Calcium Phosphorus Magnesium Direct Bilirubin AST ALT Alkaline Phosphatase Lactate Dehydrogenase Troponin T C-Reactive Protein Total Protein Albumin Prealbumin Triglycerides Cholesterol LDL Cholesterol Direct HDL Cholesterol Urine pH Urine WBC (Auto) Urine Creatinine Urine Total Protein Fluid Total Protein Vancomycin Trough Rheumatoid Factor Complement C4 Miscellaneous Test Crossmatch 12/20/16 12/20/16 12/20/16 12:00 17:42 23:53 WBC RBC Hgb Hct MCV MCH MCHC RDW Plt Count Lymph % (Auto) [place] % (Auto) Lymph # [place] # Baso # Seg Neutrophils % Seg Neuts % (Manual) Lymphocytes % (Manual) Monocytes % (Manual) Eosinophils % (Manual) Basophils % (Manual) Nucleated RBC % Seg Neutrophils # Seg Neutrophils # Man Lymphocytes # (Manual) Monocytes # (Manual) Eosinophils # (Manual) Basophils # (Manual) PT INR Fibrinogen dRVVT Confirm Interp Factor V Activity POC ABG pH POC ABG pCO2 POC ABG pO2 ABG pO2 ABG HCO3 ABG Base Excess ABG Hemoglobin Oxyhemoglobin Sodium Potassium Chloride Carbon Dioxide BUN Creatinine Glucose POC Glucose 141 H 156 H 132 H Lactic Acid Calcium Phosphorus Magnesium Direct Bilirubin AST ALT Alkaline Phosphatase Lactate Dehydrogenase Troponin T C-Reactive Protein Total Protein Albumin Prealbumin Triglycerides Cholesterol LDL Cholesterol Direct HDL Cholesterol Urine pH Urine WBC (Auto) Urine Creatinine Urine Total Protein Fluid Total Protein Vancomycin Trough Rheumatoid Factor Complement C4 Miscellaneous Test Crossmatch 12/21/16 12/21/16 12/21/16 05:49 08:50 12:19 WBC RBC Hgb Hct MCV MCH MCHC RDW Plt Count Lymph % (Auto) [place] % (Auto) Lymph # [place] # Baso # Seg Neutrophils % Seg Neuts % (Manual) Lymphocytes % (Manual) Monocytes % (Manual) Eosinophils % (Manual) Basophils % (Manual) Nucleated RBC % Seg Neutrophils # Seg Neutrophils # Man Lymphocytes # (Manual) Monocytes # (Manual) Eosinophils # (Manual) Basophils # (Manual) PT INR Fibrinogen dRVVT Confirm Interp Factor V Activity POC ABG pH POC ABG pCO2 POC ABG pO2 ABG pO2 ABG HCO3 ABG Base Excess ABG Hemoglobin Oxyhemoglobin Sodium Potassium 5.2 H D Chloride Carbon Dioxide BUN 63 H Creatinine Glucose 122 H POC Glucose 132 H 136 H Lactic Acid Calcium 8.3 L Phosphorus Magnesium Direct Bilirubin AST ALT Alkaline Phosphatase Lactate Dehydrogenase Troponin T C-Reactive Protein Total Protein Albumin Prealbumin Triglycerides Cholesterol LDL Cholesterol Direct HDL Cholesterol Urine pH Urine WBC (Auto) Urine Creatinine Urine Total Protein Fluid Total Protein Vancomycin Trough Rheumatoid Factor Complement C4 Miscellaneous Test Crossmatch 12/21/16 12/21/16 12/22/16 17:22 23:58 05:49 WBC RBC Hgb Hct MCV MCH MCHC RDW Plt Count Lymph % (Auto) [place] % (Auto) Lymph # [place] # Baso # Seg Neutrophils % Seg Neuts % (Manual) Lymphocytes % (Manual) Monocytes % (Manual) Eosinophils % (Manual) Basophils % (Manual) Nucleated RBC % Seg Neutrophils # Seg Neutrophils # Man Lymphocytes # (Manual) Monocytes # (Manual) Eosinophils # (Manual) Basophils # (Manual) PT INR Fibrinogen dRVVT Confirm Interp Factor V Activity POC ABG pH POC ABG pCO2 POC ABG pO2 ABG pO2 ABG HCO3 ABG Base Excess ABG Hemoglobin Oxyhemoglobin Sodium Potassium Chloride Carbon Dioxide BUN Creatinine Glucose POC Glucose 135 H 149 H 140 H Lactic Acid Calcium Phosphorus Magnesium Direct Bilirubin AST ALT Alkaline Phosphatase Lactate Dehydrogenase Troponin T C-Reactive Protein Total Protein Albumin Prealbumin Triglycerides Cholesterol LDL Cholesterol Direct HDL Cholesterol Urine pH Urine WBC (Auto) Urine Creatinine Urine Total Protein Fluid Total Protein Vancomycin Trough Rheumatoid Factor Complement C4 Miscellaneous Test Crossmatch 12/22/16 12/22/16 12/22/16 06:10 11:17 17:31 WBC RBC Hgb Hct MCV MCH MCHC RDW Plt Count Lymph % (Auto) [place] % (Auto) Lymph # [place] # Baso # Seg Neutrophils % Seg Neuts % (Manual) Lymphocytes % (Manual) Monocytes % (Manual) Eosinophils % (Manual) Basophils % (Manual) Nucleated RBC % Seg Neutrophils # Seg Neutrophils # Man Lymphocytes # (Manual) Monocytes # (Manual) Eosinophils # (Manual) Basophils # (Manual) PT INR Fibrinogen dRVVT Confirm Interp Factor V Activity POC ABG pH POC ABG pCO2 POC ABG pO2 ABG pO2 ABG HCO3 ABG Base Excess ABG Hemoglobin Oxyhemoglobin Sodium Potassium Chloride Carbon Dioxide BUN 76 H Creatinine 1.5 H Glucose 241 H POC Glucose 193 H 148 H Lactic Acid Calcium Phosphorus Magnesium Direct Bilirubin AST ALT Alkaline Phosphatase Lactate Dehydrogenase Troponin T C-Reactive Protein Total Protein Albumin Prealbumin Triglycerides Cholesterol LDL Cholesterol Direct HDL Cholesterol Urine pH Urine WBC (Auto) Urine Creatinine Urine Total Protein Fluid Total Protein Vancomycin Trough Rheumatoid Factor Complement C4 Miscellaneous Test Crossmatch 12/22/16 12/23/16 12/23/16 23:58 05:00 05:26 WBC RBC Hgb Hct MCV MCH MCHC RDW Plt Count Lymph % (Auto) [place] % (Auto) Lymph # [place] # Baso # Seg Neutrophils % Seg Neuts % (Manual) Lymphocytes % (Manual) Monocytes % (Manual) Eosinophils % (Manual) Basophils % (Manual) Nucleated RBC % Seg Neutrophils # Seg Neutrophils # Man Lymphocytes # (Manual) Monocytes # (Manual) Eosinophils # (Manual) Basophils # (Manual) PT INR Fibrinogen dRVVT Confirm Interp Factor V Activity POC ABG pH POC ABG pCO2 POC ABG pO2 ABG pO2 ABG HCO3 ABG Base Excess ABG Hemoglobin Oxyhemoglobin Sodium Potassium Chloride Carbon Dioxide BUN 49 H Creatinine Glucose 143 H POC Glucose 165 H 154 H Lactic Acid Calcium 8.2 L Phosphorus Magnesium 1.60 L Direct Bilirubin AST ALT Alkaline Phosphatase Lactate Dehydrogenase Troponin T C-Reactive Protein Total Protein Albumin Prealbumin Triglycerides Cholesterol LDL Cholesterol Direct HDL Cholesterol Urine pH Urine WBC (Auto) Urine Creatinine Urine Total Protein Fluid Total Protein Vancomycin Trough Rheumatoid Factor Complement C4 Miscellaneous Test Crossmatch 12/23/16 12/23/16 12/24/16 12:35 17:01 00:01 WBC RBC Hgb Hct MCV MCH MCHC RDW Plt Count Lymph % (Auto) [place] % (Auto) Lymph # [place] # Baso # Seg Neutrophils % Seg Neuts % (Manual) Lymphocytes % (Manual) Monocytes % (Manual) Eosinophils % (Manual) Basophils % (Manual) Nucleated RBC % Seg Neutrophils # Seg Neutrophils # Man Lymphocytes # (Manual) Monocytes # (Manual) Eosinophils # (Manual) Basophils # (Manual) PT INR Fibrinogen dRVVT Confirm Interp Factor V Activity POC ABG pH POC ABG pCO2 POC ABG pO2 ABG pO2 ABG HCO3 ABG Base Excess ABG Hemoglobin Oxyhemoglobin Sodium Potassium Chloride Carbon Dioxide BUN Creatinine Glucose POC Glucose 164 H 149 H 135 H Lactic Acid Calcium Phosphorus Magnesium Direct Bilirubin AST ALT Alkaline Phosphatase Lactate Dehydrogenase Troponin T C-Reactive Protein Total Protein Albumin Prealbumin Triglycerides Cholesterol LDL Cholesterol Direct HDL Cholesterol Urine pH Urine WBC (Auto) Urine Creatinine Urine Total Protein Fluid Total Protein Vancomycin Trough Rheumatoid Factor Complement C4 Miscellaneous Test Crossmatch 12/24/16 12/24/16 12/24/16 05:41 07:01 11:38 WBC RBC Hgb Hct MCV MCH MCHC RDW Plt Count Lymph % (Auto) [place] % (Auto) Lymph # [place] # Baso # Seg Neutrophils % Seg Neuts % (Manual) Lymphocytes % (Manual) Monocytes % (Manual) Eosinophils % (Manual) Basophils % (Manual) Nucleated RBC % Seg Neutrophils # Seg Neutrophils # Man Lymphocytes # (Manual) Monocytes # (Manual) Eosinophils # (Manual) Basophils # (Manual) PT INR Fibrinogen dRVVT Confirm Interp Factor V Activity POC ABG pH POC ABG pCO2 POC ABG pO2 ABG pO2 ABG HCO3 ABG Base Excess ABG Hemoglobin Oxyhemoglobin Sodium Potassium Chloride Carbon Dioxide BUN 72 H Creatinine 1.3 H Glucose 130 H POC Glucose 132 H 156 H Lactic Acid Calcium 8.2 L Phosphorus Magnesium Direct Bilirubin AST ALT Alkaline Phosphatase Lactate Dehydrogenase Troponin T C-Reactive Protein Total Protein Albumin Prealbumin Triglycerides Cholesterol LDL Cholesterol Direct HDL Cholesterol Urine pH Urine WBC (Auto) Urine Creatinine Urine Total Protein Fluid Total Protein Vancomycin Trough Rheumatoid Factor Complement C4 Miscellaneous Test Crossmatch 12/24/16 12/25/16 12/25/16 17:53 00:23 05:45 WBC RBC Hgb Hct MCV MCH MCHC RDW Plt Count Lymph % (Auto) [place] % (Auto) Lymph # [place] # Baso # Seg Neutrophils % Seg Neuts % (Manual) Lymphocytes % (Manual) Monocytes % (Manual) Eosinophils % (Manual) Basophils % (Manual) Nucleated RBC % Seg Neutrophils # Seg Neutrophils # Man Lymphocytes # (Manual) Monocytes # (Manual) Eosinophils # (Manual) Basophils # (Manual) PT INR Fibrinogen dRVVT Confirm Interp Factor V Activity POC ABG pH POC ABG pCO2 POC ABG pO2 ABG pO2 ABG HCO3 ABG Base Excess ABG Hemoglobin Oxyhemoglobin Sodium 146 H Potassium Chloride Carbon Dioxide BUN 51 H Creatinine Glucose 109 H POC Glucose 169 H 117 H Lactic Acid Calcium Phosphorus Magnesium Direct Bilirubin AST ALT Alkaline Phosphatase Lactate Dehydrogenase Troponin T C-Reactive Protein Total Protein Albumin Prealbumin Triglycerides Cholesterol LDL Cholesterol Direct HDL Cholesterol Urine pH Urine WBC (Auto) Urine Creatinine Urine Total Protein Fluid Total Protein Vancomycin Trough Rheumatoid Factor Complement C4 Miscellaneous Test Crossmatch 12/25/16 12/25/16 12/25/16 06:43 11:29 17:14 WBC RBC Hgb Hct MCV MCH MCHC RDW Plt Count Lymph % (Auto) [place] % (Auto) Lymph # [place] # Baso # Seg Neutrophils % Seg Neuts % (Manual) Lymphocytes % (Manual) Monocytes % (Manual) Eosinophils % (Manual) Basophils % (Manual) Nucleated RBC % Seg Neutrophils # Seg Neutrophils # Man Lymphocytes # (Manual) Monocytes # (Manual) Eosinophils # (Manual) Basophils # (Manual) PT INR Fibrinogen dRVVT Confirm Interp Factor V Activity POC ABG pH POC ABG pCO2 POC ABG pO2 ABG pO2 ABG HCO3 ABG Base Excess ABG Hemoglobin Oxyhemoglobin Sodium Potassium Chloride Carbon Dioxide BUN Creatinine Glucose POC Glucose 117 H 128 H 120 H Lactic Acid Calcium Phosphorus Magnesium Direct Bilirubin AST ALT Alkaline Phosphatase Lactate Dehydrogenase Troponin T C-Reactive Protein Total Protein Albumin Prealbumin Triglycerides Cholesterol LDL Cholesterol Direct HDL Cholesterol Urine pH Urine WBC (Auto) Urine Creatinine Urine Total Protein Fluid Total Protein Vancomycin Trough Rheumatoid Factor Complement C4 Miscellaneous Test Crossmatch 12/25/16 12/26/16 12/26/16 23:54 05:40 05:50 WBC 16.2 H RBC 2.32 L Hgb 6.2 L Hct 20.1 L MCV MCH 27 L MCHC RDW 18.6 H Plt Count Lymph % (Auto) [place] % (Auto) Lymph # [place] # Baso # Seg Neutrophils % Seg Neuts % (Manual) Lymphocytes % (Manual) Monocytes % (Manual) Eosinophils % (Manual) Basophils % (Manual) Nucleated RBC % Seg Neutrophils # Seg Neutrophils # Man Lymphocytes # (Manual) Monocytes # (Manual) Eosinophils # (Manual) Basophils # (Manual) PT INR Fibrinogen dRVVT Confirm Interp Factor V Activity POC ABG pH POC ABG pCO2 POC ABG pO2 ABG pO2 ABG HCO3 ABG Base Excess ABG Hemoglobin Oxyhemoglobin Sodium Potassium Chloride Carbon Dioxide BUN Creatinine Glucose POC Glucose 126 H 132 H Lactic Acid Calcium Phosphorus Magnesium Direct Bilirubin AST ALT Alkaline Phosphatase Lactate Dehydrogenase Troponin T C-Reactive Protein Total Protein Albumin Prealbumin Triglycerides Cholesterol LDL Cholesterol Direct HDL Cholesterol Urine pH Urine WBC (Auto) Urine Creatinine Urine Total Protein Fluid Total Protein Vancomycin Trough Rheumatoid Factor Complement C4 Miscellaneous Test Crossmatch 12/26/16 12/26/16 12/26/16 05:50 12:17 12:33 WBC RBC Hgb Hct MCV MCH MCHC RDW Plt Count Lymph % (Auto) [place] % (Auto) Lymph # [place] # Baso # Seg Neutrophils % Seg Neuts % (Manual) Lymphocytes % (Manual) Monocytes % (Manual) Eosinophils % (Manual) Basophils % (Manual) Nucleated RBC % Seg Neutrophils # Seg Neutrophils # Man Lymphocytes # (Manual) Monocytes # (Manual) Eosinophils # (Manual) Basophils # (Manual) PT INR Fibrinogen dRVVT Confirm Interp Factor V Activity POC ABG pH POC ABG pCO2 POC ABG pO2 ABG pO2 ABG HCO3 ABG Base Excess ABG Hemoglobin Oxyhemoglobin Sodium Potassium Chloride Carbon Dioxide BUN 73 H Creatinine 1.3 H Glucose 113 H POC Glucose 117 H Lactic Acid Calcium Phosphorus Magnesium Direct Bilirubin AST ALT Alkaline Phosphatase Lactate Dehydrogenase Troponin T C-Reactive Protein Total Protein Albumin Prealbumin Triglycerides Cholesterol LDL Cholesterol Direct HDL Cholesterol Urine pH Urine WBC (Auto) Urine Creatinine Urine Total Protein Fluid Total Protein Vancomycin Trough Rheumatoid Factor Complement C4 Miscellaneous Test Crossmatch See Detail 12/26/16 12/26/16 12/27/16 20:00 23:21 05:00 WBC RBC Hgb 8.4 L Hct 26.3 L D MCV MCH MCHC RDW Plt Count Lymph % (Auto) [place] % (Auto) Lymph # [place] # Baso # Seg Neutrophils % Seg Neuts % (Manual) Lymphocytes % (Manual) Monocytes % (Manual) Eosinophils % (Manual) Basophils % (Manual) Nucleated RBC % Seg Neutrophils # Seg Neutrophils # Man Lymphocytes # (Manual) Monocytes # (Manual) Eosinophils # (Manual) Basophils # (Manual) PT INR Fibrinogen dRVVT Confirm Interp Factor V Activity POC ABG pH POC ABG pCO2 POC ABG pO2 ABG pO2 ABG HCO3 ABG Base Excess ABG Hemoglobin Oxyhemoglobin Sodium Potassium Chloride Carbon Dioxide BUN 85 H Creatinine 1.6 H Glucose 118 H POC Glucose 124 H Lactic Acid Calcium Phosphorus 4.80 H Magnesium Direct Bilirubin AST ALT Alkaline Phosphatase Lactate Dehydrogenase Troponin T C-Reactive Protein Total Protein Albumin Prealbumin Triglycerides Cholesterol LDL Cholesterol Direct HDL Cholesterol Urine pH Urine WBC (Auto) Urine Creatinine Urine Total Protein Fluid Total Protein Vancomycin Trough Rheumatoid Factor Complement C4 Miscellaneous Test Crossmatch 12/27/16 12/27/16 12/27/16 05:00 05:35 12:24 WBC RBC Hgb 7.6 L Hct 22.8 L MCV MCH MCHC RDW Plt Count Lymph % (Auto) [place] % (Auto) Lymph # [place] # Baso # Seg Neutrophils % Seg Neuts % (Manual) Lymphocytes % (Manual) Monocytes % (Manual) Eosinophils % (Manual) Basophils % (Manual) Nucleated RBC % Seg Neutrophils # Seg Neutrophils # Man Lymphocytes # (Manual) Monocytes # (Manual) Eosinophils # (Manual) Basophils # (Manual) PT INR Fibrinogen dRVVT Confirm Interp Factor V Activity POC ABG pH POC ABG pCO2 POC ABG pO2 ABG pO2 ABG HCO3 ABG Base Excess ABG Hemoglobin Oxyhemoglobin Sodium Potassium Chloride Carbon Dioxide BUN Creatinine Glucose POC Glucose 115 H 131 H Lactic Acid Calcium Phosphorus Magnesium Direct Bilirubin AST ALT Alkaline Phosphatase Lactate Dehydrogenase Troponin T C-Reactive Protein Total Protein Albumin Prealbumin Triglycerides Cholesterol LDL Cholesterol Direct HDL Cholesterol Urine pH Urine WBC (Auto) Urine Creatinine Urine Total Protein Fluid Total Protein Vancomycin Trough Rheumatoid Factor Complement C4 Miscellaneous Test Crossmatch 12/27/16 12/28/16 12/28/16 17:16 00:18 04:00 WBC RBC Hgb Hct MCV MCH MCHC RDW Plt Count Lymph % (Auto) [place] % (Auto) Lymph # [place] # Baso # Seg Neutrophils % Seg Neuts % (Manual) Lymphocytes % (Manual) Monocytes % (Manual) Eosinophils % (Manual) Basophils % (Manual) Nucleated RBC % Seg Neutrophils # Seg Neutrophils # Man Lymphocytes # (Manual) Monocytes # (Manual) Eosinophils # (Manual) Basophils # (Manual) PT INR Fibrinogen dRVVT Confirm Interp Factor V Activity POC ABG pH POC ABG pCO2 POC ABG pO2 ABG pO2 ABG HCO3 ABG Base Excess ABG Hemoglobin Oxyhemoglobin Sodium Potassium 3.5 L Chloride Carbon Dioxide BUN 57 H Creatinine Glucose 118 H POC Glucose 136 H 120 H Lactic Acid Calcium 8.3 L Phosphorus Magnesium Direct Bilirubin AST ALT Alkaline Phosphatase Lactate Dehydrogenase Troponin T C-Reactive Protein Total Protein Albumin Prealbumin Triglycerides Cholesterol LDL Cholesterol Direct HDL Cholesterol Urine pH Urine WBC (Auto) Urine Creatinine Urine Total Protein Fluid Total Protein Vancomycin Trough Rheumatoid Factor Complement C4 Miscellaneous Test Crossmatch 12/28/16 12/28/16 12/28/16 04:00 05:11 08:30 WBC 17.0 H RBC 2.58 L Hgb 7.1 L Hct 22.0 L MCV MCH MCHC RDW 17.6 H Plt Count Lymph % (Auto) 12.2 L [place] % (Auto) Lymph # [place] # 1.1 H Baso # Seg Neutrophils % 80.5 H Seg Neuts % (Manual) Lymphocytes % (Manual) Monocytes % (Manual) Eosinophils % (Manual) Basophils % (Manual) Nucleated RBC % Seg Neutrophils # 13.7 H Seg Neutrophils # Man Lymphocytes # (Manual) Monocytes # (Manual) Eosinophils # (Manual) Basophils # (Manual) PT 16.1 H INR 1.23 H Fibrinogen dRVVT Confirm Interp Factor V Activity POC ABG pH POC ABG pCO2 POC ABG pO2 ABG pO2 ABG HCO3 ABG Base Excess ABG Hemoglobin Oxyhemoglobin Sodium Potassium Chloride Carbon Dioxide BUN Creatinine Glucose POC Glucose 122 H Lactic Acid Calcium Phosphorus Magnesium Direct Bilirubin AST ALT Alkaline Phosphatase Lactate Dehydrogenase Troponin T C-Reactive Protein Total Protein Albumin Prealbumin Triglycerides Cholesterol LDL Cholesterol Direct HDL Cholesterol Urine pH Urine WBC (Auto) Urine Creatinine Urine Total Protein Fluid Total Protein Vancomycin Trough Rheumatoid Factor Complement C4 Miscellaneous Test Crossmatch 12/28/16 12/28/16 12/28/16 12:27 16:32 23:46 WBC RBC Hgb Hct MCV MCH MCHC RDW Plt Count Lymph % (Auto) [place] % (Auto) Lymph # [place] # Baso # Seg Neutrophils % Seg Neuts % (Manual) Lymphocytes % (Manual) Monocytes % (Manual) Eosinophils % (Manual) Basophils % (Manual) Nucleated RBC % Seg Neutrophils # Seg Neutrophils # Man Lymphocytes # (Manual) Monocytes # (Manual) Eosinophils # (Manual) Basophils # (Manual) PT INR Fibrinogen dRVVT Confirm Interp Factor V Activity POC ABG pH POC ABG pCO2 POC ABG pO2 ABG pO2 ABG HCO3 ABG Base Excess ABG Hemoglobin Oxyhemoglobin Sodium Potassium Chloride Carbon Dioxide BUN Creatinine Glucose POC Glucose 127 H 117 H 108 H Lactic Acid Calcium Phosphorus Magnesium Direct Bilirubin AST ALT Alkaline Phosphatase Lactate Dehydrogenase Troponin T C-Reactive Protein Total Protein Albumin Prealbumin Triglycerides Cholesterol LDL Cholesterol Direct HDL Cholesterol Urine pH Urine WBC (Auto) Urine Creatinine Urine Total Protein Fluid Total Protein Vancomycin Trough Rheumatoid Factor Complement C4 Miscellaneous Test Crossmatch 12/29/16 12/29/16 12/29/16 05:15 05:15 05:32 WBC RBC Hgb Hct MCV MCH MCHC RDW Plt Count Lymph % (Auto) [place] % (Auto) Lymph # [place] # Baso # Seg Neutrophils % Seg Neuts % (Manual) Lymphocytes % (Manual) Monocytes % (Manual) Eosinophils % (Manual) Basophils % (Manual) Nucleated RBC % Seg Neutrophils # Seg Neutrophils # Man Lymphocytes # (Manual) Monocytes # (Manual) Eosinophils # (Manual) Basophils # (Manual) PT INR Fibrinogen dRVVT Confirm Interp Factor V Activity POC ABG pH POC ABG pCO2 POC ABG pO2 ABG pO2 ABG HCO3 ABG Base Excess ABG Hemoglobin Oxyhemoglobin Sodium Potassium Chloride Carbon Dioxide BUN 74 H Creatinine 1.6 H Glucose 111 H POC Glucose 123 H Lactic Acid Calcium Phosphorus Magnesium Direct Bilirubin AST ALT Alkaline Phosphatase Lactate Dehydrogenase Troponin T C-Reactive Protein Total Protein Albumin Prealbumin 0.110 L Triglycerides Cholesterol LDL Cholesterol Direct HDL Cholesterol Urine pH Urine WBC (Auto) Urine Creatinine Urine Total Protein Fluid Total Protein Vancomycin Trough Rheumatoid Factor Complement C4 Miscellaneous Test Crossmatch 12/29/16 12/29/16 12/29/16 11:43 13:45 14:00 WBC 13.8 H RBC 2.26 L Hgb 6.3 L Hct 20.4 L MCV MCH MCHC RDW 18.3 H Plt Count Lymph % (Auto) [place] % (Auto) Lymph # [place] # 0.9 H Baso # Seg Neutrophils % 78.6 H Seg Neuts % (Manual) Lymphocytes % (Manual) Monocytes % (Manual) Eosinophils % (Manual) Basophils % (Manual) Nucleated RBC % Seg Neutrophils # 10.8 H Seg Neutrophils # Man Lymphocytes # (Manual) Monocytes # (Manual) Eosinophils # (Manual) Basophils # (Manual) PT INR Fibrinogen dRVVT Confirm Interp Factor V Activity POC ABG pH POC ABG pCO2 POC ABG pO2 ABG pO2 ABG HCO3 ABG Base Excess ABG Hemoglobin Oxyhemoglobin Sodium Potassium Chloride Carbon Dioxide BUN Creatinine Glucose POC Glucose 133 H Lactic Acid Calcium Phosphorus Magnesium Direct Bilirubin AST ALT Alkaline Phosphatase Lactate Dehydrogenase Troponin T C-Reactive Protein Total Protein Albumin Prealbumin Triglycerides Cholesterol LDL Cholesterol Direct HDL Cholesterol Urine pH Urine WBC (Auto) Urine Creatinine Urine Total Protein Fluid Total Protein Vancomycin Trough Rheumatoid Factor Complement C4 Miscellaneous Test Crossmatch See Detail 12/29/16 12/29/16 12/29/16 17:03 23:15 23:22 WBC RBC Hgb 7.3 L Hct 22.3 L MCV MCH MCHC RDW Plt Count Lymph % (Auto) [place] % (Auto) Lymph # [place] # Baso # Seg Neutrophils % Seg Neuts % (Manual) Lymphocytes % (Manual) Monocytes % (Manual) Eosinophils % (Manual) Basophils % (Manual) Nucleated RBC % Seg Neutrophils # Seg Neutrophils # Man Lymphocytes # (Manual) Monocytes # (Manual) Eosinophils # (Manual) Basophils # (Manual) PT INR Fibrinogen dRVVT Confirm Interp Factor V Activity POC ABG pH POC ABG pCO2 POC ABG pO2 ABG pO2 ABG HCO3 ABG Base Excess ABG Hemoglobin Oxyhemoglobin Sodium Potassium Chloride Carbon Dioxide BUN Creatinine Glucose POC Glucose 139 H 120 H Lactic Acid Calcium Phosphorus Magnesium Direct Bilirubin AST ALT Alkaline Phosphatase Lactate Dehydrogenase Troponin T C-Reactive Protein Total Protein Albumin Prealbumin Triglycerides Cholesterol LDL Cholesterol Direct HDL Cholesterol Urine pH Urine WBC (Auto) Urine Creatinine Urine Total Protein Fluid Total Protein Vancomycin Trough Rheumatoid Factor Complement C4 Miscellaneous Test Crossmatch 12/30/16 12/30/16 12/30/16 04:20 04:20 05:43 WBC 15.6 H RBC 2.81 L Hgb 8.0 L Hct 24.0 L MCV MCH MCHC RDW 16.9 H Plt Count Lymph % (Auto) [place] % (Auto) Lymph # [place] # 1.0 H Baso # Seg Neutrophils % 76.2 H Seg Neuts % (Manual) Lymphocytes % (Manual) Monocytes % (Manual) Eosinophils % (Manual) Basophils % (Manual) Nucleated RBC % Seg Neutrophils # 11.9 H Seg Neutrophils # Man Lymphocytes # (Manual) Monocytes # (Manual) Eosinophils # (Manual) Basophils # (Manual) PT INR Fibrinogen dRVVT Confirm Interp Factor V Activity POC ABG pH POC ABG pCO2 POC ABG pO2 ABG pO2 ABG HCO3 ABG Base Excess ABG Hemoglobin Oxyhemoglobin Sodium Potassium Chloride Carbon Dioxide BUN 87 H Creatinine 1.8 H Glucose 119 H POC Glucose 115 H Lactic Acid Calcium Phosphorus Magnesium Direct Bilirubin AST ALT Alkaline Phosphatase Lactate Dehydrogenase Troponin T C-Reactive Protein Total Protein Albumin Prealbumin Triglycerides Cholesterol LDL Cholesterol Direct HDL Cholesterol Urine pH Urine WBC (Auto) Urine Creatinine Urine Total Protein Fluid Total Protein Vancomycin Trough Rheumatoid Factor Complement C4 Miscellaneous Test Crossmatch 12/30/16 12/30/16 12/31/16 17:27 23:21 04:00 WBC RBC Hgb Hct MCV MCH MCHC RDW Plt Count Lymph % (Auto) [place] % (Auto) Lymph # [place] # Baso # Seg Neutrophils % Seg Neuts % (Manual) Lymphocytes % (Manual) Monocytes % (Manual) Eosinophils % (Manual) Basophils % (Manual) Nucleated RBC % Seg Neutrophils # Seg Neutrophils # Man Lymphocytes # (Manual) Monocytes # (Manual) Eosinophils # (Manual) Basophils # (Manual) PT INR Fibrinogen dRVVT Confirm Interp Factor V Activity POC ABG pH POC ABG pCO2 POC ABG pO2 ABG pO2 ABG HCO3 ABG Base Excess ABG Hemoglobin Oxyhemoglobin Sodium Potassium Chloride Carbon Dioxide BUN 59 H Creatinine Glucose 298 H POC Glucose 144 H 125 H Lactic Acid Calcium Phosphorus Magnesium Direct Bilirubin AST ALT Alkaline Phosphatase Lactate Dehydrogenase Troponin T C-Reactive Protein Total Protein Albumin Prealbumin Triglycerides Cholesterol LDL Cholesterol Direct HDL Cholesterol Urine pH Urine WBC (Auto) Urine Creatinine Urine Total Protein Fluid Total Protein Vancomycin Trough Rheumatoid Factor Complement C4 Miscellaneous Test Crossmatch 12/31/16 12/31/16 12/31/16 05:11 12:18 18:17 WBC RBC Hgb Hct MCV MCH MCHC RDW Plt Count Lymph % (Auto) [place] % (Auto) Lymph # [place] # Baso # Seg Neutrophils % Seg Neuts % (Manual) Lymphocytes % (Manual) Monocytes % (Manual) Eosinophils % (Manual) Basophils % (Manual) Nucleated RBC % Seg Neutrophils # Seg Neutrophils # Man Lymphocytes # (Manual) Monocytes # (Manual) Eosinophils # (Manual) Basophils # (Manual) PT INR Fibrinogen dRVVT Confirm Interp Factor V Activity POC ABG pH POC ABG pCO2 POC ABG pO2 ABG pO2 ABG HCO3 ABG Base Excess ABG Hemoglobin Oxyhemoglobin Sodium Potassium Chloride Carbon Dioxide BUN Creatinine Glucose POC Glucose 167 H 125 H 133 H Lactic Acid Calcium Phosphorus Magnesium Direct Bilirubin AST ALT Alkaline Phosphatase Lactate Dehydrogenase Troponin T C-Reactive Protein Total Protein Albumin Prealbumin Triglycerides Cholesterol LDL Cholesterol Direct HDL Cholesterol Urine pH Urine WBC (Auto) Urine Creatinine Urine Total Protein Fluid Total Protein Vancomycin Trough Rheumatoid Factor Complement C4 Miscellaneous Test Crossmatch 12/31/16 01/01/17 01/01/17 23:55 05:00 05:12 WBC RBC Hgb Hct MCV MCH MCHC RDW Plt Count Lymph % (Auto) [place] % (Auto) Lymph # [place] # Baso # Seg Neutrophils % Seg Neuts % (Manual) Lymphocytes % (Manual) Monocytes % (Manual) Eosinophils % (Manual) Basophils % (Manual) Nucleated RBC % Seg Neutrophils # Seg Neutrophils # Man Lymphocytes # (Manual) Monocytes # (Manual) Eosinophils # (Manual) Basophils # (Manual) PT INR Fibrinogen dRVVT Confirm Interp Factor V Activity POC ABG pH POC ABG pCO2 POC ABG pO2 ABG pO2 ABG HCO3 ABG Base Excess ABG Hemoglobin Oxyhemoglobin Sodium Potassium Chloride Carbon Dioxide BUN 76 H Creatinine 1.5 H Glucose 109 H POC Glucose 129 H 129 H Lactic Acid Calcium Phosphorus Magnesium Direct Bilirubin AST ALT Alkaline Phosphatase 536 H Lactate Dehydrogenase Troponin T C-Reactive Protein Total Protein Albumin 1.5 L Prealbumin Triglycerides Cholesterol LDL Cholesterol Direct HDL Cholesterol Urine pH Urine WBC (Auto) Urine Creatinine Urine Total Protein Fluid Total Protein Vancomycin Trough Rheumatoid Factor Complement C4 Miscellaneous Test Crossmatch 01/01/17 01/01/17 01/01/17 12:25 17:01 23:32 WBC RBC Hgb Hct MCV MCH MCHC RDW Plt Count Lymph % (Auto) [place] % (Auto) Lymph # [place] # Baso # Seg Neutrophils % Seg Neuts % (Manual) Lymphocytes % (Manual) Monocytes % (Manual) Eosinophils % (Manual) Basophils % (Manual) Nucleated RBC % Seg Neutrophils # Seg Neutrophils # Man Lymphocytes # (Manual) Monocytes # (Manual) Eosinophils # (Manual) Basophils # (Manual) PT INR Fibrinogen dRVVT Confirm Interp Factor V Activity POC ABG pH POC ABG pCO2 POC ABG pO2 ABG pO2 ABG HCO3 ABG Base Excess ABG Hemoglobin Oxyhemoglobin Sodium Potassium Chloride Carbon Dioxide BUN Creatinine Glucose POC Glucose 140 H 142 H 112 H Lactic Acid Calcium Phosphorus Magnesium Direct Bilirubin AST ALT Alkaline Phosphatase Lactate Dehydrogenase Troponin T C-Reactive Protein Total Protein Albumin Prealbumin Triglycerides Cholesterol LDL Cholesterol Direct HDL Cholesterol Urine pH Urine WBC (Auto) Urine Creatinine Urine Total Protein Fluid Total Protein Vancomycin Trough Rheumatoid Factor Complement C4 Miscellaneous Test Crossmatch 01/02/17 01/02/17 01/02/17 04:56 06:00 11:37 WBC RBC Hgb Hct MCV MCH MCHC RDW Plt Count Lymph % (Auto) [place] % (Auto) Lymph # [place] # Baso # Seg Neutrophils % Seg Neuts % (Manual) Lymphocytes % (Manual) Monocytes % (Manual) Eosinophils % (Manual) Basophils % (Manual) Nucleated RBC % Seg Neutrophils # Seg Neutrophils # Man Lymphocytes # (Manual) Monocytes # (Manual) Eosinophils # (Manual) Basophils # (Manual) PT INR Fibrinogen dRVVT Confirm Interp Factor V Activity POC ABG pH POC ABG pCO2 POC ABG pO2 ABG pO2 ABG HCO3 ABG Base Excess ABG Hemoglobin Oxyhemoglobin Sodium Potassium Chloride Carbon Dioxide BUN 88 H Creatinine 1.7 H Glucose 113 H POC Glucose 136 H 200 H Lactic Acid Calcium Phosphorus Magnesium Direct Bilirubin AST ALT Alkaline Phosphatase Lactate Dehydrogenase Troponin T C-Reactive Protein Total Protein Albumin Prealbumin Triglycerides Cholesterol LDL Cholesterol Direct HDL Cholesterol Urine pH Urine WBC (Auto) Urine Creatinine Urine Total Protein Fluid Total Protein Vancomycin Trough Rheumatoid Factor Complement C4 Miscellaneous Test Crossmatch 01/02/17 01/02/17 01/03/17 17:42 22:52 04:54 WBC RBC Hgb Hct MCV MCH MCHC RDW Plt Count Lymph % (Auto) [place] % (Auto) Lymph # [place] # Baso # Seg Neutrophils % Seg Neuts % (Manual) Lymphocytes % (Manual) Monocytes % (Manual) Eosinophils % (Manual) Basophils % (Manual) Nucleated RBC % Seg Neutrophils # Seg Neutrophils # Man Lymphocytes # (Manual) Monocytes # (Manual) Eosinophils # (Manual) Basophils # (Manual) PT INR Fibrinogen dRVVT Confirm Interp Factor V Activity POC ABG pH POC ABG pCO2 POC ABG pO2 ABG pO2 ABG HCO3 ABG Base Excess ABG Hemoglobin Oxyhemoglobin Sodium Potassium Chloride Carbon Dioxide BUN Creatinine Glucose POC Glucose 112 H 133 H 111 H Lactic Acid Calcium Phosphorus Magnesium Direct Bilirubin AST ALT Alkaline Phosphatase Lactate Dehydrogenase Troponin T C-Reactive Protein Total Protein Albumin Prealbumin Triglycerides Cholesterol LDL Cholesterol Direct HDL Cholesterol Urine pH Urine WBC (Auto) Urine Creatinine Urine Total Protein Fluid Total Protein Vancomycin Trough Rheumatoid Factor Complement C4 Miscellaneous Test Crossmatch 01/03/17 01/03/17 01/03/17 05:00 05:00 14:02 WBC 11.2 H RBC 2.56 L Hgb 7.2 L Hct 22.3 L MCV MCH MCHC RDW 17.3 H Plt Count Lymph % (Auto) [place] % (Auto) 10.0 H Lymph # [place] # 1.1 H Baso # Seg Neutrophils % 70.5 H Seg Neuts % (Manual) Lymphocytes % (Manual) Monocytes % (Manual) Eosinophils % (Manual) Basophils % (Manual) Nucleated RBC % Seg Neutrophils # 7.9 H Seg Neutrophils # Man Lymphocytes # (Manual) Monocytes # (Manual) Eosinophils # (Manual) Basophils # (Manual) PT INR Fibrinogen dRVVT Confirm Interp Factor V Activity POC ABG pH POC ABG pCO2 POC ABG pO2 ABG pO2 ABG HCO3 ABG Base Excess ABG Hemoglobin Oxyhemoglobin Sodium Potassium Chloride Carbon Dioxide BUN 60 H Creatinine 1.3 H Glucose 110 H POC Glucose 119 H Lactic Acid Calcium Phosphorus Magnesium Direct Bilirubin AST ALT Alkaline Phosphatase Lactate Dehydrogenase Troponin T C-Reactive Protein Total Protein Albumin Prealbumin Triglycerides Cholesterol LDL Cholesterol Direct HDL Cholesterol Urine pH Urine WBC (Auto) Urine Creatinine Urine Total Protein Fluid Total Protein Vancomycin Trough Rheumatoid Factor Complement C4 Miscellaneous Test Crossmatch 01/03/17 01/03/17 01/04/17 18:13 23:40 05:57 WBC RBC Hgb Hct MCV MCH MCHC RDW Plt Count Lymph % (Auto) [place] % (Auto) Lymph # [place] # Baso # Seg Neutrophils % Seg Neuts % (Manual) Lymphocytes % (Manual) Monocytes % (Manual) Eosinophils % (Manual) Basophils % (Manual) Nucleated RBC % Seg Neutrophils # Seg Neutrophils # Man Lymphocytes # (Manual) Monocytes # (Manual) Eosinophils # (Manual) Basophils # (Manual) PT INR Fibrinogen dRVVT Confirm Interp Factor V Activity POC ABG pH POC ABG pCO2 POC ABG pO2 ABG pO2 ABG HCO3 ABG Base Excess ABG Hemoglobin Oxyhemoglobin Sodium Potassium Chloride Carbon Dioxide BUN Creatinine Glucose POC Glucose 107 H 129 H 111 H Lactic Acid Calcium Phosphorus Magnesium Direct Bilirubin AST ALT Alkaline Phosphatase Lactate Dehydrogenase Troponin T C-Reactive Protein Total Protein Albumin Prealbumin Triglycerides Cholesterol LDL Cholesterol Direct HDL Cholesterol Urine pH Urine WBC (Auto) Urine Creatinine Urine Total Protein Fluid Total Protein Vancomycin Trough Rheumatoid Factor Complement C4 Miscellaneous Test Crossmatch 01/04/17 01/04/17 01/04/17 12:46 15:27 17:11 WBC RBC Hgb Hct MCV MCH MCHC RDW Plt Count Lymph % (Auto) [place] % (Auto) Lymph # [place] # Baso # Seg Neutrophils % Seg Neuts % (Manual) Lymphocytes % (Manual) Monocytes % (Manual) Eosinophils % (Manual) Basophils % (Manual) Nucleated RBC % Seg Neutrophils # Seg Neutrophils # Man Lymphocytes # (Manual) Monocytes # (Manual) Eosinophils # (Manual) Basophils # (Manual) PT INR Fibrinogen dRVVT Confirm Interp Factor V Activity POC ABG pH POC ABG pCO2 POC ABG pO2 ABG pO2 ABG HCO3 ABG Base Excess ABG Hemoglobin Oxyhemoglobin Sodium Potassium Chloride Carbon Dioxide BUN 43 H Creatinine Glucose 124 H POC Glucose 159 H 125 H Lactic Acid Calcium 8.0 L Phosphorus 2.10 L Magnesium Direct Bilirubin AST ALT Alkaline Phosphatase Lactate Dehydrogenase Troponin T C-Reactive Protein Total Protein Albumin Prealbumin Triglycerides Cholesterol LDL Cholesterol Direct HDL Cholesterol Urine pH Urine WBC (Auto) Urine Creatinine Urine Total Protein Fluid Total Protein Vancomycin Trough Rheumatoid Factor Complement C4 Miscellaneous Test Crossmatch 01/04/17 01/05/17 01/05/17 23:31 04:00 05:46 WBC RBC Hgb Hct MCV MCH MCHC RDW Plt Count Lymph % (Auto) [place] % (Auto) Lymph # [place] # Baso # Seg Neutrophils % Seg Neuts % (Manual) Lymphocytes % (Manual) Monocytes % (Manual) Eosinophils % (Manual) Basophils % (Manual) Nucleated RBC % Seg Neutrophils # Seg Neutrophils # Man Lymphocytes # (Manual) Monocytes # (Manual) Eosinophils # (Manual) Basophils # (Manual) PT INR Fibrinogen dRVVT Confirm Interp Factor V Activity POC ABG pH POC ABG pCO2 POC ABG pO2 ABG pO2 ABG HCO3 ABG Base Excess ABG Hemoglobin Oxyhemoglobin Sodium Potassium Chloride Carbon Dioxide BUN 52 H Creatinine 1.3 H Glucose 113 H POC Glucose 123 H 118 H Lactic Acid Calcium Phosphorus 2.40 L Magnesium Direct Bilirubin AST ALT Alkaline Phosphatase Lactate Dehydrogenase Troponin T C-Reactive Protein Total Protein Albumin Prealbumin Triglycerides Cholesterol LDL Cholesterol Direct HDL Cholesterol Urine pH Urine WBC (Auto) Urine Creatinine Urine Total Protein Fluid Total Protein Vancomycin Trough Rheumatoid Factor Complement C4 Miscellaneous Test Crossmatch 01/05/17 01/05/17 01/05/17 11:41 17:48 23:27 WBC RBC Hgb Hct MCV MCH MCHC RDW Plt Count Lymph % (Auto) [place] % (Auto) Lymph # [place] # Baso # Seg Neutrophils % Seg Neuts % (Manual) Lymphocytes % (Manual) Monocytes % (Manual) Eosinophils % (Manual) Basophils % (Manual) Nucleated RBC % Seg Neutrophils # Seg Neutrophils # Man Lymphocytes # (Manual) Monocytes # (Manual) Eosinophils # (Manual) Basophils # (Manual) PT INR Fibrinogen dRVVT Confirm Interp Factor V Activity POC ABG pH POC ABG pCO2 POC ABG pO2 ABG pO2 ABG HCO3 ABG Base Excess ABG Hemoglobin Oxyhemoglobin Sodium Potassium Chloride Carbon Dioxide BUN Creatinine Glucose POC Glucose 163 H 142 H 155 H Lactic Acid Calcium Phosphorus Magnesium Direct Bilirubin AST ALT Alkaline Phosphatase Lactate Dehydrogenase Troponin T C-Reactive Protein Total Protein Albumin Prealbumin Triglycerides Cholesterol LDL Cholesterol Direct HDL Cholesterol Urine pH Urine WBC (Auto) Urine Creatinine Urine Total Protein Fluid Total Protein Vancomycin Trough Rheumatoid Factor Complement C4 Miscellaneous Test Crossmatch 01/06/17 01/06/17 01/06/17 05:20 07:35 11:18 WBC RBC Hgb Hct MCV MCH MCHC RDW Plt Count Lymph % (Auto) [place] % (Auto) Lymph # [place] # Baso # Seg Neutrophils % Seg Neuts % (Manual) Lymphocytes % (Manual) Monocytes % (Manual) Eosinophils % (Manual) Basophils % (Manual) Nucleated RBC % Seg Neutrophils # Seg Neutrophils # Man Lymphocytes # (Manual) Monocytes # (Manual) Eosinophils # (Manual) Basophils # (Manual) PT INR Fibrinogen dRVVT Confirm Interp Factor V Activity POC ABG pH POC ABG pCO2 POC ABG pO2 ABG pO2 ABG HCO3 ABG Base Excess ABG Hemoglobin Oxyhemoglobin Sodium Potassium Chloride Carbon Dioxide BUN 74 H Creatinine 1.6 H Glucose 135 H POC Glucose 108 H 149 H Lactic Acid Calcium Phosphorus Magnesium Direct Bilirubin AST ALT Alkaline Phosphatase Lactate Dehydrogenase Troponin T C-Reactive Protein Total Protein Albumin Prealbumin Triglycerides Cholesterol LDL Cholesterol Direct HDL Cholesterol Urine pH Urine WBC (Auto) Urine Creatinine Urine Total Protein Fluid Total Protein Vancomycin Trough Rheumatoid Factor Complement C4 Miscellaneous Test Crossmatch 01/06/17 01/07/17 01/07/17 17:17 00:23 05:31 WBC RBC Hgb Hct MCV MCH MCHC RDW Plt Count Lymph % (Auto) [place] % (Auto) Lymph # [place] # Baso # Seg Neutrophils % Seg Neuts % (Manual) Lymphocytes % (Manual) Monocytes % (Manual) Eosinophils % (Manual) Basophils % (Manual) Nucleated RBC % Seg Neutrophils # Seg Neutrophils # Man Lymphocytes # (Manual) Monocytes # (Manual) Eosinophils # (Manual) Basophils # (Manual) PT INR Fibrinogen dRVVT Confirm Interp Factor V Activity POC ABG pH POC ABG pCO2 POC ABG pO2 ABG pO2 ABG HCO3 ABG Base Excess ABG Hemoglobin Oxyhemoglobin Sodium Potassium Chloride Carbon Dioxide BUN Creatinine Glucose POC Glucose 146 H 165 H 153 H Lactic Acid Calcium Phosphorus Magnesium Direct Bilirubin AST ALT Alkaline Phosphatase Lactate Dehydrogenase Troponin T C-Reactive Protein Total Protein Albumin Prealbumin Triglycerides Cholesterol LDL Cholesterol Direct HDL Cholesterol Urine pH Urine WBC (Auto) Urine Creatinine Urine Total Protein Fluid Total Protein Vancomycin Trough Rheumatoid Factor Complement C4 Miscellaneous Test Crossmatch 01/07/17 01/07/17 01/07/17 06:00 11:39 17:11 WBC RBC Hgb Hct MCV MCH MCHC RDW Plt Count Lymph % (Auto) [place] % (Auto) Lymph # [place] # Baso # Seg Neutrophils % Seg Neuts % (Manual) Lymphocytes % (Manual) Monocytes % (Manual) Eosinophils % (Manual) Basophils % (Manual) Nucleated RBC % Seg Neutrophils # Seg Neutrophils # Man Lymphocytes # (Manual) Monocytes # (Manual) Eosinophils # (Manual) Basophils # (Manual) PT INR Fibrinogen dRVVT Confirm Interp Factor V Activity POC ABG pH POC ABG pCO2 POC ABG pO2 ABG pO2 ABG HCO3 ABG Base Excess ABG Hemoglobin Oxyhemoglobin Sodium Potassium Chloride Carbon Dioxide BUN 42 H Creatinine Glucose 175 H POC Glucose 163 H 163 H Lactic Acid Calcium Phosphorus 2.40 L D Magnesium Direct Bilirubin AST ALT Alkaline Phosphatase Lactate Dehydrogenase Troponin T C-Reactive Protein Total Protein Albumin Prealbumin Triglycerides Cholesterol LDL Cholesterol Direct HDL Cholesterol Urine pH Urine WBC (Auto) Urine Creatinine Urine Total Protein Fluid Total Protein Vancomycin Trough Rheumatoid Factor Complement C4 Miscellaneous Test Crossmatch 01/07/17 01/08/17 01/08/17 23:40 05:00 05:00 WBC 27.4 H RBC 2.27 L Hgb 6.1 L Hct 20.4 L MCV MCH 27 L MCHC RDW 17.8 H Plt Count Lymph % (Auto) [place] % (Auto) Lymph # [place] # Baso # Seg Neutrophils % Seg Neuts % (Manual) Lymphocytes % (Manual) Monocytes % (Manual) Eosinophils % (Manual) Basophils % (Manual) Nucleated RBC % Seg Neutrophils # Seg Neutrophils # Man Lymphocytes # (Manual) Monocytes # (Manual) Eosinophils # (Manual) Basophils # (Manual) PT INR Fibrinogen dRVVT Confirm Interp Factor V Activity POC ABG pH POC ABG pCO2 POC ABG pO2 ABG pO2 ABG HCO3 ABG Base Excess ABG Hemoglobin Oxyhemoglobin Sodium Potassium Chloride Carbon Dioxide 16 L D BUN 62 H Creatinine 1.6 H D Glucose 103 H POC Glucose 135 H Lactic Acid Calcium Phosphorus Magnesium Direct Bilirubin AST ALT Alkaline Phosphatase Lactate Dehydrogenase Troponin T C-Reactive Protein Total Protein Albumin Prealbumin Triglycerides Cholesterol LDL Cholesterol Direct HDL Cholesterol Urine pH Urine WBC (Auto) Urine Creatinine Urine Total Protein Fluid Total Protein Vancomycin Trough Rheumatoid Factor Complement C4 Miscellaneous Test Crossmatch 01/08/17 01/08/17 01/08/17 05:25 10:37 10:37 WBC RBC Hgb Hct MCV MCH MCHC RDW Plt Count Lymph % (Auto) [place] % (Auto) Lymph # [place] # Baso # Seg Neutrophils % Seg Neuts % (Manual) Lymphocytes % (Manual) Monocytes % (Manual) Eosinophils % (Manual) Basophils % (Manual) Nucleated RBC % Seg Neutrophils # Seg Neutrophils # Man Lymphocytes # (Manual) Monocytes # (Manual) Eosinophils # (Manual) Basophils # (Manual) PT INR Fibrinogen dRVVT Confirm Interp Factor V Activity POC ABG pH POC ABG pCO2 POC ABG pO2 ABG pO2 ABG HCO3 ABG Base Excess ABG Hemoglobin Oxyhemoglobin Sodium Potassium Chloride Carbon Dioxide BUN Creatinine Glucose POC Glucose 106 H Lactic Acid Calcium Phosphorus Magnesium Direct Bilirubin AST ALT Alkaline Phosphatase Lactate Dehydrogenase Troponin T C-Reactive Protein 24.40 H Total Protein Albumin Prealbumin Triglycerides Cholesterol LDL Cholesterol Direct HDL Cholesterol Urine pH Urine WBC (Auto) Urine Creatinine Urine Total Protein Fluid Total Protein Vancomycin Trough Rheumatoid Factor Complement C4 Miscellaneous Test Crossmatch See Detail 01/08/17 01/08/17 01/08/17 10:37 11:33 15:15 WBC RBC Hgb Hct MCV MCH MCHC RDW Plt Count Lymph % (Auto) [place] % (Auto) Lymph # [place] # Baso # Seg Neutrophils % Seg Neuts % (Manual) Lymphocytes % (Manual) Monocytes % (Manual) Eosinophils % (Manual) Basophils % (Manual) Nucleated RBC % Seg Neutrophils # Seg Neutrophils # Man Lymphocytes # (Manual) Monocytes # (Manual) Eosinophils # (Manual) Basophils # (Manual) PT INR Fibrinogen dRVVT Confirm Interp Factor V Activity POC ABG pH POC ABG pCO2 POC ABG pO2 ABG pO2 ABG HCO3 ABG Base Excess ABG Hemoglobin Oxyhemoglobin Sodium Potassium Chloride Carbon Dioxide BUN Creatinine Glucose POC Glucose 157 H Lactic Acid 9.70 H* 9.10 H* Calcium Phosphorus Magnesium Direct Bilirubin AST ALT Alkaline Phosphatase Lactate Dehydrogenase Troponin T C-Reactive Protein Total Protein Albumin Prealbumin Triglycerides Cholesterol LDL Cholesterol Direct HDL Cholesterol Urine pH Urine WBC (Auto) Urine Creatinine Urine Total Protein Fluid Total Protein Vancomycin Trough Rheumatoid Factor Complement C4 Miscellaneous Test Crossmatch 01/08/17 01/08/17 01/09/17 17:19 23:12 04:40 WBC RBC Hgb Hct MCV MCH MCHC RDW Plt Count Lymph % (Auto) [place] % (Auto) Lymph # [place] # Baso # Seg Neutrophils % Seg Neuts % (Manual) Lymphocytes % (Manual) Monocytes % (Manual) Eosinophils % (Manual) Basophils % (Manual) Nucleated RBC % Seg Neutrophils # Seg Neutrophils # Man Lymphocytes # (Manual) Monocytes # (Manual) Eosinophils # (Manual) Basophils # (Manual) PT INR Fibrinogen dRVVT Confirm Interp Factor V Activity POC ABG pH POC ABG pCO2 POC ABG pO2 ABG pO2 ABG HCO3 ABG Base Excess ABG Hemoglobin Oxyhemoglobin Sodium 147 H Potassium Chloride Carbon Dioxide BUN 82 H Creatinine 1.8 H Glucose 137 H POC Glucose 164 H 157 H Lactic Acid Calcium Phosphorus Magnesium Direct Bilirubin AST ALT Alkaline Phosphatase Lactate Dehydrogenase Troponin T C-Reactive Protein Total Protein Albumin Prealbumin Triglycerides Cholesterol LDL Cholesterol Direct HDL Cholesterol Urine pH Urine WBC (Auto) Urine Creatinine Urine Total Protein Fluid Total Protein Vancomycin Trough Rheumatoid Factor Complement C4 Miscellaneous Test Crossmatch 01/09/17 01/09/17 01/09/17 05:42 08:22 10:57 WBC RBC Hgb Hct MCV MCH MCHC RDW Plt Count Lymph % (Auto) [place] % (Auto) Lymph # [place] # Baso # Seg Neutrophils % Seg Neuts % (Manual) Lymphocytes % (Manual) Monocytes % (Manual) Eosinophils % (Manual) Basophils % (Manual) Nucleated RBC % Seg Neutrophils # Seg Neutrophils # Man Lymphocytes # (Manual) Monocytes # (Manual) Eosinophils # (Manual) Basophils # (Manual) PT INR Fibrinogen dRVVT Confirm Interp Factor V Activity POC ABG pH POC ABG pCO2 POC ABG pO2 ABG pO2 ABG HCO3 ABG Base Excess ABG Hemoglobin Oxyhemoglobin Sodium Potassium Chloride Carbon Dioxide BUN Creatinine Glucose POC Glucose 156 H 122 H Lactic Acid 2.30 H* Calcium Phosphorus Magnesium Direct Bilirubin AST ALT Alkaline Phosphatase Lactate Dehydrogenase Troponin T C-Reactive Protein Total Protein Albumin Prealbumin Triglycerides Cholesterol LDL Cholesterol Direct HDL Cholesterol Urine pH Urine WBC (Auto) Urine Creatinine Urine Total Protein Fluid Total Protein Vancomycin Trough Rheumatoid Factor Complement C4 Miscellaneous Test Crossmatch 01/09/17 01/09/17 01/09/17 13:30 17:14 18:45 WBC RBC Hgb Hct MCV MCH MCHC RDW Plt Count Lymph % (Auto) [place] % (Auto) Lymph # [place] # Baso # Seg Neutrophils % Seg Neuts % (Manual) Lymphocytes % (Manual) Monocytes % (Manual) Eosinophils % (Manual) Basophils % (Manual) Nucleated RBC % Seg Neutrophils # Seg Neutrophils # Man Lymphocytes # (Manual) Monocytes # (Manual) Eosinophils # (Manual) Basophils # (Manual) PT INR Fibrinogen dRVVT Confirm Interp Factor V Activity POC ABG pH POC ABG pCO2 POC ABG pO2 ABG pO2 ABG HCO3 ABG Base Excess ABG Hemoglobin Oxyhemoglobin Sodium Potassium Chloride Carbon Dioxide BUN Creatinine Glucose POC Glucose 127 H Lactic Acid Calcium Phosphorus Magnesium Direct Bilirubin AST ALT Alkaline Phosphatase Lactate Dehydrogenase Troponin T C-Reactive Protein 24.70 H Total Protein Albumin Prealbumin Triglycerides Cholesterol LDL Cholesterol Direct HDL Cholesterol Urine pH Urine WBC (Auto) Urine Creatinine Urine Total Protein Fluid Total Protein Vancomycin Trough Rheumatoid Factor Complement C4 Miscellaneous Test Flexitest 1 H Crossmatch 01/10/17 01/10/17 01/10/17 01:21 04:00 04:00 WBC 18.1 H RBC 3.22 L Hgb 8.8 L Hct 27.0 L D MCV MCH 27 L MCHC RDW 17.0 H Plt Count Lymph % (Auto) [place] % (Auto) Lymph # [place] # Baso # Seg Neutrophils % Seg Neuts % (Manual) Lymphocytes % (Manual) Monocytes % (Manual) Eosinophils % (Manual) Basophils % (Manual) Nucleated RBC % Seg Neutrophils # Seg Neutrophils # Man Lymphocytes # (Manual) Monocytes # (Manual) Eosinophils # (Manual) Basophils # (Manual) PT INR Fibrinogen dRVVT Confirm Interp Factor V Activity POC ABG pH POC ABG pCO2 POC ABG pO2 ABG pO2 ABG HCO3 ABG Base Excess ABG Hemoglobin Oxyhemoglobin Sodium Potassium Chloride Carbon Dioxide BUN 59 H Creatinine 1.3 H Glucose 122 H POC Glucose 160 H Lactic Acid Calcium Phosphorus Magnesium Direct Bilirubin AST ALT Alkaline Phosphatase Lactate Dehydrogenase Troponin T C-Reactive Protein Total Protein Albumin Prealbumin Triglycerides Cholesterol LDL Cholesterol Direct HDL Cholesterol Urine pH Urine WBC (Auto) Urine Creatinine Urine Total Protein Fluid Total Protein Vancomycin Trough Rheumatoid Factor Complement C4 Miscellaneous Test Crossmatch 01/10/17 01/10/17 01/10/17 05:36 12:14 17:55 WBC RBC Hgb Hct MCV MCH MCHC RDW Plt Count Lymph % (Auto) [place] % (Auto) Lymph # [place] # Baso # Seg Neutrophils % Seg Neuts % (Manual) Lymphocytes % (Manual) Monocytes % (Manual) Eosinophils % (Manual) Basophils % (Manual) Nucleated RBC % Seg Neutrophils # Seg Neutrophils # Man Lymphocytes # (Manual) Monocytes # (Manual) Eosinophils # (Manual) Basophils # (Manual) PT INR Fibrinogen dRVVT Confirm Interp Factor V Activity POC ABG pH POC ABG pCO2 POC ABG pO2 ABG pO2 ABG HCO3 ABG Base Excess ABG Hemoglobin Oxyhemoglobin Sodium Potassium Chloride Carbon Dioxide BUN Creatinine Glucose POC Glucose 163 H 120 H 144 H Lactic Acid Calcium Phosphorus Magnesium Direct Bilirubin AST ALT Alkaline Phosphatase Lactate Dehydrogenase Troponin T C-Reactive Protein Total Protein Albumin Prealbumin Triglycerides Cholesterol LDL Cholesterol Direct HDL Cholesterol Urine pH Urine WBC (Auto) Urine Creatinine Urine Total Protein Fluid Total Protein Vancomycin Trough Rheumatoid Factor Complement C4 Miscellaneous Test Crossmatch 01/11/17 01/11/17 01/11/17 00:09 04:00 04:00 WBC 15.8 H RBC 3.04 L Hgb 8.2 L Hct 25.5 L MCV MCH 27 L MCHC RDW 17.3 H Plt Count Lymph % (Auto) [place] % (Auto) Lymph # [place] # Baso # Seg Neutrophils % Seg Neuts % (Manual) Lymphocytes % (Manual) Monocytes % (Manual) Eosinophils % (Manual) Basophils % (Manual) Nucleated RBC % Seg Neutrophils # Seg Neutrophils # Man Lymphocytes # (Manual) Monocytes # (Manual) Eosinophils # (Manual) Basophils # (Manual) PT INR Fibrinogen dRVVT Confirm Interp Factor V Activity POC ABG pH POC ABG pCO2 POC ABG pO2 ABG pO2 ABG HCO3 ABG Base Excess ABG Hemoglobin Oxyhemoglobin Sodium Potassium Chloride Carbon Dioxide BUN 78 H Creatinine 1.6 H Glucose 109 H POC Glucose 122 H Lactic Acid Calcium Phosphorus Magnesium Direct Bilirubin AST ALT Alkaline Phosphatase Lactate Dehydrogenase Troponin T C-Reactive Protein Total Protein Albumin Prealbumin Triglycerides Cholesterol LDL Cholesterol Direct HDL Cholesterol Urine pH Urine WBC (Auto) Urine Creatinine Urine Total Protein Fluid Total Protein Vancomycin Trough Rheumatoid Factor Complement C4 Miscellaneous Test Crossmatch 01/11/17 01/11/17 01/11/17 12:46 18:23 23:42 WBC RBC Hgb Hct MCV MCH MCHC RDW Plt Count Lymph % (Auto) [place] % (Auto) Lymph # [place] # Baso # Seg Neutrophils % Seg Neuts % (Manual) Lymphocytes % (Manual) Monocytes % (Manual) Eosinophils % (Manual) Basophils % (Manual) Nucleated RBC % Seg Neutrophils # Seg Neutrophils # Man Lymphocytes # (Manual) Monocytes # (Manual) Eosinophils # (Manual) Basophils # (Manual) PT INR Fibrinogen dRVVT Confirm Interp Factor V Activity POC ABG pH POC ABG pCO2 POC ABG pO2 ABG pO2 ABG HCO3 ABG Base Excess ABG Hemoglobin Oxyhemoglobin Sodium Potassium Chloride Carbon Dioxide BUN Creatinine Glucose POC Glucose 148 H 125 H 124 H Lactic Acid Calcium Phosphorus Magnesium Direct Bilirubin AST ALT Alkaline Phosphatase Lactate Dehydrogenase Troponin T C-Reactive Protein Total Protein Albumin Prealbumin Triglycerides Cholesterol LDL Cholesterol Direct HDL Cholesterol Urine pH Urine WBC (Auto) Urine Creatinine Urine Total Protein Fluid Total Protein Vancomycin Trough Rheumatoid Factor Complement C4 Miscellaneous Test Crossmatch 01/12/17 01/12/17 01/12/17 04:30 04:30 05:47 WBC 15.8 H RBC 3.31 L Hgb 8.9 L Hct 27.9 L MCV MCH 27 L MCHC RDW 17.4 H Plt Count Lymph % (Auto) [place] % (Auto) Lymph # [place] # Baso # Seg Neutrophils % Seg Neuts % (Manual) Lymphocytes % (Manual) Monocytes % (Manual) Eosinophils % (Manual) Basophils % (Manual) Nucleated RBC % Seg Neutrophils # Seg Neutrophils # Man Lymphocytes # (Manual) Monocytes # (Manual) Eosinophils # (Manual) Basophils # (Manual) PT INR Fibrinogen dRVVT Confirm Interp Factor V Activity POC ABG pH POC ABG pCO2 POC ABG pO2 ABG pO2 ABG HCO3 ABG Base Excess ABG Hemoglobin Oxyhemoglobin Sodium Potassium Chloride Carbon Dioxide BUN 57 H Creatinine Glucose 121 H POC Glucose 110 H Lactic Acid Calcium Phosphorus 2.10 L Magnesium Direct Bilirubin AST ALT Alkaline Phosphatase Lactate Dehydrogenase Troponin T C-Reactive Protein Total Protein Albumin Prealbumin Triglycerides Cholesterol LDL Cholesterol Direct HDL Cholesterol Urine pH Urine WBC (Auto) Urine Creatinine Urine Total Protein Fluid Total Protein Vancomycin Trough Rheumatoid Factor Complement C4 Miscellaneous Test Crossmatch 01/12/17 01/12/17 01/12/17 11:35 17:45 23:14 WBC RBC Hgb Hct MCV MCH MCHC RDW Plt Count Lymph % (Auto) [place] % (Auto) Lymph # [place] # Baso # Seg Neutrophils % Seg Neuts % (Manual) Lymphocytes % (Manual) Monocytes % (Manual) Eosinophils % (Manual) Basophils % (Manual) Nucleated RBC % Seg Neutrophils # Seg Neutrophils # Man Lymphocytes # (Manual) Monocytes # (Manual) Eosinophils # (Manual) Basophils # (Manual) PT INR Fibrinogen dRVVT Confirm Interp Factor V Activity POC ABG pH POC ABG pCO2 POC ABG pO2 ABG pO2 ABG HCO3 ABG Base Excess ABG Hemoglobin Oxyhemoglobin Sodium Potassium Chloride Carbon Dioxide BUN Creatinine Glucose POC Glucose 146 H 117 H 123 H Lactic Acid Calcium Phosphorus Magnesium Direct Bilirubin AST ALT Alkaline Phosphatase Lactate Dehydrogenase Troponin T C-Reactive Protein Total Protein Albumin Prealbumin Triglycerides Cholesterol LDL Cholesterol Direct HDL Cholesterol Urine pH Urine WBC (Auto) Urine Creatinine Urine Total Protein Fluid Total Protein Vancomycin Trough Rheumatoid Factor Complement C4 Miscellaneous Test Crossmatch 01/13/17 01/13/17 01/13/17 05:32 06:00 12:10 WBC RBC Hgb Hct MCV MCH MCHC RDW Plt Count Lymph % (Auto) [place] % (Auto) Lymph # [place] # Baso # Seg Neutrophils % Seg Neuts % (Manual) Lymphocytes % (Manual) Monocytes % (Manual) Eosinophils % (Manual) Basophils % (Manual) Nucleated RBC % Seg Neutrophils # Seg Neutrophils # Man Lymphocytes # (Manual) Monocytes # (Manual) Eosinophils # (Manual) Basophils # (Manual) PT INR Fibrinogen dRVVT Confirm Interp Factor V Activity POC ABG pH POC ABG pCO2 POC ABG pO2 ABG pO2 ABG HCO3 ABG Base Excess ABG Hemoglobin Oxyhemoglobin Sodium Potassium Chloride Carbon Dioxide BUN 80 H Creatinine 1.4 H Glucose 106 H POC Glucose 106 H Lactic Acid Calcium Phosphorus Magnesium Direct Bilirubin AST ALT Alkaline Phosphatase Lactate Dehydrogenase Troponin T C-Reactive Protein Total Protein Albumin Prealbumin Triglycerides Cholesterol LDL Cholesterol Direct HDL Cholesterol Urine pH Urine WBC (Auto) Urine Creatinine Urine Total Protein Fluid Total Protein 3.0 L Vancomycin Trough Rheumatoid Factor Complement C4 Miscellaneous Test Crossmatch 01/13/17 01/13/17 01/13/17 12:17 15:50 17:30 WBC RBC Hgb Hct MCV MCH MCHC RDW Plt Count Lymph % (Auto) [place] % (Auto) Lymph # [place] # Baso # Seg Neutrophils % Seg Neuts % (Manual) Lymphocytes % (Manual) Monocytes % (Manual) Eosinophils % (Manual) Basophils % (Manual) Nucleated RBC % Seg Neutrophils # Seg Neutrophils # Man Lymphocytes # (Manual) Monocytes # (Manual) Eosinophils # (Manual) Basophils # (Manual) PT 15.4 H INR 1.16 H Fibrinogen dRVVT Confirm Interp Factor V Activity POC ABG pH POC ABG pCO2 POC ABG pO2 ABG pO2 ABG HCO3 ABG Base Excess ABG Hemoglobin Oxyhemoglobin Sodium Potassium Chloride Carbon Dioxide BUN Creatinine Glucose POC Glucose 168 H 110 H Lactic Acid Calcium Phosphorus Magnesium Direct Bilirubin AST ALT Alkaline Phosphatase Lactate Dehydrogenase Troponin T C-Reactive Protein Total Protein Albumin Prealbumin Triglycerides Cholesterol LDL Cholesterol Direct HDL Cholesterol Urine pH Urine WBC (Auto) Urine Creatinine Urine Total Protein Fluid Total Protein Vancomycin Trough Rheumatoid Factor Complement C4 Miscellaneous Test Crossmatch 01/13/17 01/14/17 01/14/17 23:42 05:24 05:30 WBC RBC Hgb Hct MCV MCH MCHC RDW Plt Count Lymph % (Auto) [place] % (Auto) Lymph # [place] # Baso # Seg Neutrophils % Seg Neuts % (Manual) Lymphocytes % (Manual) Monocytes % (Manual) Eosinophils % (Manual) Basophils % (Manual) Nucleated RBC % Seg Neutrophils # Seg Neutrophils # Man Lymphocytes # (Manual) Monocytes # (Manual) Eosinophils # (Manual) Basophils # (Manual) PT INR Fibrinogen dRVVT Confirm Interp Factor V Activity POC ABG pH POC ABG pCO2 POC ABG pO2 ABG pO2 ABG HCO3 ABG Base Excess ABG Hemoglobin Oxyhemoglobin Sodium Potassium Chloride Carbon Dioxide BUN 58 H Creatinine Glucose 114 H POC Glucose 155 H 121 H Lactic Acid Calcium Phosphorus Magnesium Direct Bilirubin AST ALT Alkaline Phosphatase Lactate Dehydrogenase Troponin T C-Reactive Protein Total Protein Albumin Prealbumin Triglycerides Cholesterol LDL Cholesterol Direct HDL Cholesterol Urine pH Urine WBC (Auto) Urine Creatinine Urine Total Protein Fluid Total Protein Vancomycin Trough Rheumatoid Factor Complement C4 Miscellaneous Test Crossmatch 01/14/17 01/14/17 01/15/17 12:48 17:36 00:15 WBC RBC Hgb Hct MCV MCH MCHC RDW Plt Count Lymph % (Auto) [place] % (Auto) Lymph # [place] # Baso # Seg Neutrophils % Seg Neuts % (Manual) Lymphocytes % (Manual) Monocytes % (Manual) Eosinophils % (Manual) Basophils % (Manual) Nucleated RBC % Seg Neutrophils # Seg Neutrophils # Man Lymphocytes # (Manual) Monocytes # (Manual) Eosinophils # (Manual) Basophils # (Manual) PT INR Fibrinogen dRVVT Confirm Interp Factor V Activity POC ABG pH POC ABG pCO2 POC ABG pO2 ABG pO2 ABG HCO3 ABG Base Excess ABG Hemoglobin Oxyhemoglobin Sodium Potassium Chloride Carbon Dioxide BUN Creatinine Glucose POC Glucose 130 H 135 H 132 H Lactic Acid Calcium Phosphorus Magnesium Direct Bilirubin AST ALT Alkaline Phosphatase Lactate Dehydrogenase Troponin T C-Reactive Protein Total Protein Albumin Prealbumin Triglycerides Cholesterol LDL Cholesterol Direct HDL Cholesterol Urine pH Urine WBC (Auto) Urine Creatinine Urine Total Protein Fluid Total Protein Vancomycin Trough Rheumatoid Factor Complement C4 Miscellaneous Test Crossmatch 01/15/17 01/15/17 01/15/17 05:01 11:55 12:45 WBC 16.2 H RBC 3.00 L Hgb 8.1 L Hct 25.4 L MCV MCH 27 L MCHC RDW 17.6 H Plt Count Lymph % (Auto) 11.7 L [place] % (Auto) 7.8 H Lymph # [place] # 1.3 H Baso # Seg Neutrophils % 80.1 H Seg Neuts % (Manual) Lymphocytes % (Manual) Monocytes % (Manual) Eosinophils % (Manual) Basophils % (Manual) Nucleated RBC % Seg Neutrophils # 13.0 H Seg Neutrophils # Man Lymphocytes # (Manual) Monocytes # (Manual) Eosinophils # (Manual) Basophils # (Manual) PT INR Fibrinogen dRVVT Confirm Interp Factor V Activity POC ABG pH POC ABG pCO2 POC ABG pO2 ABG pO2 ABG HCO3 ABG Base Excess ABG Hemoglobin Oxyhemoglobin Sodium Potassium Chloride Carbon Dioxide BUN Creatinine Glucose POC Glucose 126 H 125 H Lactic Acid Calcium Phosphorus Magnesium Direct Bilirubin AST ALT Alkaline Phosphatase Lactate Dehydrogenase Troponin T C-Reactive Protein Total Protein Albumin Prealbumin Triglycerides Cholesterol LDL Cholesterol Direct HDL Cholesterol Urine pH Urine WBC (Auto) Urine Creatinine Urine Total Protein Fluid Total Protein Vancomycin Trough Rheumatoid Factor Complement C4 Miscellaneous Test Crossmatch 01/15/17 01/15/17 01/15/17 12:45 17:31 23:39 WBC RBC Hgb Hct MCV MCH MCHC RDW Plt Count Lymph % (Auto) [place] % (Auto) Lymph # [place] # Baso # Seg Neutrophils % Seg Neuts % (Manual) Lymphocytes % (Manual) Monocytes % (Manual) Eosinophils % (Manual) Basophils % (Manual) Nucleated RBC % Seg Neutrophils # Seg Neutrophils # Man Lymphocytes # (Manual) Monocytes # (Manual) Eosinophils # (Manual) Basophils # (Manual) PT INR Fibrinogen dRVVT Confirm Interp Factor V Activity POC ABG pH POC ABG pCO2 POC ABG pO2 ABG pO2 ABG HCO3 ABG Base Excess ABG Hemoglobin Oxyhemoglobin Sodium 136 L Potassium Chloride Carbon Dioxide BUN 87 H Creatinine 1.7 H Glucose 108 H POC Glucose 129 H 112 H Lactic Acid Calcium Phosphorus Magnesium Direct Bilirubin AST ALT Alkaline Phosphatase Lactate Dehydrogenase Troponin T C-Reactive Protein Total Protein Albumin Prealbumin Triglycerides Cholesterol LDL Cholesterol Direct HDL Cholesterol Urine pH Urine WBC (Auto) Urine Creatinine Urine Total Protein Fluid Total Protein Vancomycin Trough Rheumatoid Factor Complement C4 Miscellaneous Test Crossmatch 01/16/17 01/16/17 01/16/17 05:23 11:42 12:32 WBC RBC Hgb Hct MCV MCH MCHC RDW Plt Count Lymph % (Auto) [place] % (Auto) Lymph # [place] # Baso # Seg Neutrophils % Seg Neuts % (Manual) Lymphocytes % (Manual) Monocytes % (Manual) Eosinophils % (Manual) Basophils % (Manual) Nucleated RBC % Seg Neutrophils # Seg Neutrophils # Man Lymphocytes # (Manual) Monocytes # (Manual) Eosinophils # (Manual) Basophils # (Manual) PT INR Fibrinogen dRVVT Confirm Interp Factor V Activity POC ABG pH 7.499 H POC ABG pCO2 30.9 L POC ABG pO2 51 L ABG pO2 ABG HCO3 ABG Base Excess ABG Hemoglobin Oxyhemoglobin Sodium Potassium Chloride Carbon Dioxide BUN Creatinine Glucose POC Glucose 118 H 133 H Lactic Acid Calcium Phosphorus Magnesium Direct Bilirubin AST ALT Alkaline Phosphatase Lactate Dehydrogenase Troponin T C-Reactive Protein Total Protein Albumin Prealbumin Triglycerides Cholesterol LDL Cholesterol Direct HDL Cholesterol Urine pH Urine WBC (Auto) Urine Creatinine Urine Total Protein Fluid Total Protein Vancomycin Trough Rheumatoid Factor Complement C4 Miscellaneous Test Crossmatch 01/16/17 01/16/17 01/16/17 17:52 23:57 Unknown WBC RBC Hgb Hct MCV MCH MCHC RDW Plt Count Lymph % (Auto) [place] % (Auto) Lymph # [place] # Baso # Seg Neutrophils % Seg Neuts % (Manual) Lymphocytes % (Manual) Monocytes % (Manual) Eosinophils % (Manual) Basophils % (Manual) Nucleated RBC % Seg Neutrophils # Seg Neutrophils # Man Lymphocytes # (Manual) Monocytes # (Manual) Eosinophils # (Manual) Basophils # (Manual) PT INR Fibrinogen dRVVT Confirm Interp Factor V Activity POC ABG pH POC ABG pCO2 POC ABG pO2 ABG pO2 ABG HCO3 ABG Base Excess ABG Hemoglobin Oxyhemoglobin Sodium 135 L Potassium Chloride Carbon Dioxide BUN 101 H Creatinine 1.8 H Glucose 117 H POC Glucose 130 H 143 H Lactic Acid Calcium Phosphorus 5.80 H Magnesium Direct Bilirubin AST ALT Alkaline Phosphatase Lactate Dehydrogenase Troponin T C-Reactive Protein Total Protein Albumin Prealbumin Triglycerides Cholesterol LDL Cholesterol Direct HDL Cholesterol Urine pH Urine WBC (Auto) Urine Creatinine Urine Total Protein Fluid Total Protein Vancomycin Trough Rheumatoid Factor Complement C4 Miscellaneous Test Crossmatch 01/17/17 01/17/17 01/17/17 05:30 05:46 11:49 WBC RBC Hgb Hct MCV MCH MCHC RDW Plt Count Lymph % (Auto) [place] % (Auto) Lymph # [place] # Baso # Seg Neutrophils % Seg Neuts % (Manual) Lymphocytes % (Manual) Monocytes % (Manual) Eosinophils % (Manual) Basophils % (Manual) Nucleated RBC % Seg Neutrophils # Seg Neutrophils # Man Lymphocytes # (Manual) Monocytes # (Manual) Eosinophils # (Manual) Basophils # (Manual) PT INR Fibrinogen dRVVT Confirm Interp Factor V Activity POC ABG pH POC ABG pCO2 POC ABG pO2 ABG pO2 ABG HCO3 ABG Base Excess ABG Hemoglobin Oxyhemoglobin Sodium 134 L Potassium Chloride 95.8 L Carbon Dioxide BUN 66 H Creatinine 1.3 H Glucose 138 H POC Glucose 147 H 124 H Lactic Acid Calcium Phosphorus Magnesium Direct Bilirubin AST ALT Alkaline Phosphatase 254 H Lactate Dehydrogenase Troponin T C-Reactive Protein Total Protein Albumin 1.3 L Prealbumin Triglycerides Cholesterol LDL Cholesterol Direct HDL Cholesterol Urine pH Urine WBC (Auto) Urine Creatinine Urine Total Protein Fluid Total Protein Vancomycin Trough Rheumatoid Factor Complement C4 Miscellaneous Test Crossmatch 01/17/17 01/17/17 01/18/17 17:30 23:41 05:15 WBC RBC Hgb Hct MCV MCH MCHC RDW Plt Count Lymph % (Auto) [place] % (Auto) Lymph # [place] # Baso # Seg Neutrophils % Seg Neuts % (Manual) Lymphocytes % (Manual) Monocytes % (Manual) Eosinophils % (Manual) Basophils % (Manual) Nucleated RBC % Seg Neutrophils # Seg Neutrophils # Man Lymphocytes # (Manual) Monocytes # (Manual) Eosinophils # (Manual) Basophils # (Manual) PT INR Fibrinogen dRVVT Confirm Interp Factor V Activity POC ABG pH POC ABG pCO2 POC ABG pO2 ABG pO2 ABG HCO3 ABG Base Excess ABG Hemoglobin Oxyhemoglobin Sodium Potassium Chloride Carbon Dioxide BUN 89 H Creatinine 1.7 H Glucose 118 H POC Glucose 137 H 119 H Lactic Acid Calcium Phosphorus Magnesium Direct Bilirubin AST ALT Alkaline Phosphatase Lactate Dehydrogenase Troponin T C-Reactive Protein Total Protein Albumin Prealbumin Triglycerides Cholesterol LDL Cholesterol Direct HDL Cholesterol Urine pH Urine WBC (Auto) Urine Creatinine Urine Total Protein Fluid Total Protein Vancomycin Trough Rheumatoid Factor Complement C4 Miscellaneous Test Crossmatch 01/18/17 01/18/17 01/18/17 05:19 12:16 18:11 WBC RBC Hgb Hct MCV MCH MCHC RDW Plt Count Lymph % (Auto) [place] % (Auto) Lymph # [place] # Baso # Seg Neutrophils % Seg Neuts % (Manual) Lymphocytes % (Manual) Monocytes % (Manual) Eosinophils % (Manual) Basophils % (Manual) Nucleated RBC % Seg Neutrophils # Seg Neutrophils # Man Lymphocytes # (Manual) Monocytes # (Manual) Eosinophils # (Manual) Basophils # (Manual) PT INR Fibrinogen dRVVT Confirm Interp Factor V Activity POC ABG pH POC ABG pCO2 POC ABG pO2 ABG pO2 ABG HCO3 ABG Base Excess ABG Hemoglobin Oxyhemoglobin Sodium Potassium Chloride Carbon Dioxide BUN Creatinine Glucose POC Glucose 134 H 188 H 113 H Lactic Acid Calcium Phosphorus Magnesium Direct Bilirubin AST ALT Alkaline Phosphatase Lactate Dehydrogenase Troponin T C-Reactive Protein Total Protein Albumin Prealbumin Triglycerides Cholesterol LDL Cholesterol Direct HDL Cholesterol Urine pH Urine WBC (Auto) Urine Creatinine Urine Total Protein Fluid Total Protein Vancomycin Trough Rheumatoid Factor Complement C4 Miscellaneous Test Crossmatch 01/19/17 01/19/17 01/19/17 00:00 05:30 05:36 WBC RBC Hgb Hct MCV MCH MCHC RDW Plt Count Lymph % (Auto) [place] % (Auto) Lymph # [place] # Baso # Seg Neutrophils % Seg Neuts % (Manual) Lymphocytes % (Manual) Monocytes % (Manual) Eosinophils % (Manual) Basophils % (Manual) Nucleated RBC % Seg Neutrophils # Seg Neutrophils # Man Lymphocytes # (Manual) Monocytes # (Manual) Eosinophils # (Manual) Basophils # (Manual) PT INR Fibrinogen dRVVT Confirm Interp Factor V Activity POC ABG pH POC ABG pCO2 POC ABG pO2 ABG pO2 ABG HCO3 ABG Base Excess ABG Hemoglobin Oxyhemoglobin Sodium Potassium Chloride Carbon Dioxide BUN 70 H Creatinine 1.5 H Glucose 121 H POC Glucose 137 H 155 H Lactic Acid Calcium Phosphorus 2.10 L D Magnesium Direct Bilirubin AST ALT Alkaline Phosphatase Lactate Dehydrogenase Troponin T C-Reactive Protein Total Protein Albumin Prealbumin Triglycerides Cholesterol LDL Cholesterol Direct HDL Cholesterol Urine pH Urine WBC (Auto) Urine Creatinine Urine Total Protein Fluid Total Protein Vancomycin Trough Rheumatoid Factor Complement C4 Miscellaneous Test Crossmatch 01/19/17 01/19/17 01/19/17 11:59 15:32 17:57 WBC RBC Hgb Hct MCV MCH MCHC RDW Plt Count Lymph % (Auto) [place] % (Auto) Lymph # [place] # Baso # Seg Neutrophils % Seg Neuts % (Manual) Lymphocytes % (Manual) Monocytes % (Manual) Eosinophils % (Manual) Basophils % (Manual) Nucleated RBC % Seg Neutrophils # Seg Neutrophils # Man Lymphocytes # (Manual) Monocytes # (Manual) Eosinophils # (Manual) Basophils # (Manual) PT INR Fibrinogen dRVVT Confirm Interp Factor V Activity POC ABG pH POC ABG pCO2 33.1 L POC ABG pO2 76 L ABG pO2 ABG HCO3 ABG Base Excess ABG Hemoglobin Oxyhemoglobin Sodium Potassium Chloride Carbon Dioxide BUN Creatinine Glucose POC Glucose 156 H 129 H Lactic Acid Calcium Phosphorus Magnesium Direct Bilirubin AST ALT Alkaline Phosphatase Lactate Dehydrogenase Troponin T C-Reactive Protein Total Protein Albumin Prealbumin Triglycerides Cholesterol LDL Cholesterol Direct HDL Cholesterol Urine pH Urine WBC (Auto) Urine Creatinine Urine Total Protein Fluid Total Protein Vancomycin Trough Rheumatoid Factor Complement C4 Miscellaneous Test Crossmatch 01/19/17 01/20/17 01/20/17 23:49 04:00 05:21 WBC RBC Hgb Hct MCV MCH MCHC RDW Plt Count Lymph % (Auto) [place] % (Auto) Lymph # [place] # Baso # Seg Neutrophils % Seg Neuts % (Manual) Lymphocytes % (Manual) Monocytes % (Manual) Eosinophils % (Manual) Basophils % (Manual) Nucleated RBC % Seg Neutrophils # Seg Neutrophils # Man Lymphocytes # (Manual) Monocytes # (Manual) Eosinophils # (Manual) Basophils # (Manual) PT INR Fibrinogen dRVVT Confirm Interp Factor V Activity POC ABG pH POC ABG pCO2 POC ABG pO2 ABG pO2 ABG HCO3 ABG Base Excess ABG Hemoglobin Oxyhemoglobin Sodium Potassium Chloride Carbon Dioxide BUN 96 H Creatinine 1.9 H Glucose 106 H POC Glucose 125 H 130 H Lactic Acid Calcium Phosphorus 2.40 L Magnesium Direct Bilirubin AST ALT Alkaline Phosphatase Lactate Dehydrogenase Troponin T C-Reactive Protein Total Protein Albumin Prealbumin Triglycerides Cholesterol LDL Cholesterol Direct HDL Cholesterol Urine pH Urine WBC (Auto) Urine Creatinine Urine Total Protein Fluid Total Protein Vancomycin Trough Rheumatoid Factor Complement C4 Miscellaneous Test Crossmatch 01/20/17 01/20/17 01/20/17 11:58 12:17 17:26 WBC RBC Hgb Hct MCV MCH MCHC RDW Plt Count Lymph % (Auto) [place] % (Auto) Lymph # [place] # Baso # Seg Neutrophils % Seg Neuts % (Manual) Lymphocytes % (Manual) Monocytes % (Manual) Eosinophils % (Manual) Basophils % (Manual) Nucleated RBC % Seg Neutrophils # Seg Neutrophils # Man Lymphocytes # (Manual) Monocytes # (Manual) Eosinophils # (Manual) Basophils # (Manual) PT INR Fibrinogen dRVVT Confirm Interp Factor V Activity POC ABG pH POC ABG pCO2 POC ABG pO2 70 L ABG pO2 ABG HCO3 ABG Base Excess ABG Hemoglobin Oxyhemoglobin Sodium Potassium Chloride Carbon Dioxide BUN Creatinine Glucose POC Glucose 118 H 154 H Lactic Acid Calcium Phosphorus Magnesium Direct Bilirubin AST ALT Alkaline Phosphatase Lactate Dehydrogenase Troponin T C-Reactive Protein Total Protein Albumin Prealbumin Triglycerides Cholesterol LDL Cholesterol Direct HDL Cholesterol Urine pH Urine WBC (Auto) Urine Creatinine Urine Total Protein Fluid Total Protein Vancomycin Trough Rheumatoid Factor Complement C4 Miscellaneous Test Crossmatch 01/21/17 01/21/17 01/21/17 04:00 04:56 11:46 WBC RBC Hgb Hct MCV MCH MCHC RDW Plt Count Lymph % (Auto) [place] % (Auto) Lymph # [place] # Baso # Seg Neutrophils % Seg Neuts % (Manual) Lymphocytes % (Manual) Monocytes % (Manual) Eosinophils % (Manual) Basophils % (Manual) Nucleated RBC % Seg Neutrophils # Seg Neutrophils # Man Lymphocytes # (Manual) Monocytes # (Manual) Eosinophils # (Manual) Basophils # (Manual) PT INR Fibrinogen dRVVT Confirm Interp Factor V Activity POC ABG pH POC ABG pCO2 POC ABG pO2 ABG pO2 ABG HCO3 ABG Base Excess ABG Hemoglobin Oxyhemoglobin Sodium Potassium 3.5 L Chloride 97.4 L Carbon Dioxide BUN 66 H Creatinine 1.4 H Glucose POC Glucose 116 H 106 H Lactic Acid Calcium Phosphorus 2.10 L Magnesium Direct Bilirubin AST ALT Alkaline Phosphatase Lactate Dehydrogenase Troponin T C-Reactive Protein Total Protein Albumin Prealbumin Triglycerides Cholesterol LDL Cholesterol Direct HDL Cholesterol Urine pH Urine WBC (Auto) Urine Creatinine Urine Total Protein Fluid Total Protein Vancomycin Trough Rheumatoid Factor Complement C4 Miscellaneous Test Crossmatch 01/21/17 01/21/17 01/22/17 17:25 23:49 05:35 WBC RBC Hgb Hct MCV MCH MCHC RDW Plt Count Lymph % (Auto) [place] % (Auto) Lymph # [place] # Baso # Seg Neutrophils % Seg Neuts % (Manual) Lymphocytes % (Manual) Monocytes % (Manual) Eosinophils % (Manual) Basophils % (Manual) Nucleated RBC % Seg Neutrophils # Seg Neutrophils # Man Lymphocytes # (Manual) Monocytes # (Manual) Eosinophils # (Manual) Basophils # (Manual) PT INR Fibrinogen dRVVT Confirm Interp Factor V Activity POC ABG pH POC ABG pCO2 POC ABG pO2 ABG pO2 ABG HCO3 ABG Base Excess ABG Hemoglobin Oxyhemoglobin Sodium Potassium Chloride Carbon Dioxide BUN Creatinine Glucose POC Glucose 106 H 133 H 107 H Lactic Acid Calcium Phosphorus Magnesium Direct Bilirubin AST ALT Alkaline Phosphatase Lactate Dehydrogenase Troponin T C-Reactive Protein Total Protein Albumin Prealbumin Triglycerides Cholesterol LDL Cholesterol Direct HDL Cholesterol Urine pH Urine WBC (Auto) Urine Creatinine Urine Total Protein Fluid Total Protein Vancomycin Trough Rheumatoid Factor Complement C4 Miscellaneous Test Crossmatch 01/22/17 01/22/17 01/22/17 07:20 07:20 11:31 WBC RBC 2.75 L Hgb 7.5 L Hct 22.7 L MCV MCH 27 L MCHC RDW 17.5 H Plt Count Lymph % (Auto) [place] % (Auto) Lymph # [place] # Baso # Seg Neutrophils % Seg Neuts % (Manual) Lymphocytes % (Manual) Monocytes % (Manual) Eosinophils % (Manual) Basophils % (Manual) Nucleated RBC % Seg Neutrophils # Seg Neutrophils # Man Lymphocytes # (Manual) Monocytes # (Manual) Eosinophils # (Manual) Basophils # (Manual) PT INR Fibrinogen dRVVT Confirm Interp Factor V Activity POC ABG pH POC ABG pCO2 POC ABG pO2 ABG pO2 ABG HCO3 ABG Base Excess ABG Hemoglobin Oxyhemoglobin Sodium Potassium 3.3 L Chloride Carbon Dioxide BUN 42 H Creatinine Glucose 105 H POC Glucose 124 H Lactic Acid Calcium Phosphorus 1.70 L Magnesium Direct Bilirubin AST ALT Alkaline Phosphatase Lactate Dehydrogenase Troponin T C-Reactive Protein Total Protein Albumin Prealbumin Triglycerides Cholesterol LDL Cholesterol Direct HDL Cholesterol Urine pH Urine WBC (Auto) Urine Creatinine Urine Total Protein Fluid Total Protein Vancomycin Trough Rheumatoid Factor Complement C4 Miscellaneous Test Crossmatch 01/22/17 01/22/17 01/23/17 17:16 23:35 05:35 WBC RBC Hgb Hct MCV MCH MCHC RDW Plt Count Lymph % (Auto) [place] % (Auto) Lymph # [place] # Baso # Seg Neutrophils % Seg Neuts % (Manual) Lymphocytes % (Manual) Monocytes % (Manual) Eosinophils % (Manual) Basophils % (Manual) Nucleated RBC % Seg Neutrophils # Seg Neutrophils # Man Lymphocytes # (Manual) Monocytes # (Manual) Eosinophils # (Manual) Basophils # (Manual) PT INR Fibrinogen dRVVT Confirm Interp Factor V Activity POC ABG pH POC ABG pCO2 POC ABG pO2 ABG pO2 ABG HCO3 ABG Base Excess ABG Hemoglobin Oxyhemoglobin Sodium Potassium Chloride Carbon Dioxide BUN Creatinine Glucose POC Glucose 135 H 120 H 111 H Lactic Acid Calcium Phosphorus Magnesium Direct Bilirubin AST ALT Alkaline Phosphatase Lactate Dehydrogenase Troponin T C-Reactive Protein Total Protein Albumin Prealbumin Triglycerides Cholesterol LDL Cholesterol Direct HDL Cholesterol Urine pH Urine WBC (Auto) Urine Creatinine Urine Total Protein Fluid Total Protein Vancomycin Trough Rheumatoid Factor Complement C4 Miscellaneous Test Crossmatch 01/23/17 06:10 WBC RBC Hgb Hct MCV MCH MCHC RDW Plt Count Lymph % (Auto) [place] % (Auto) Lymph # [place] # Baso # Seg Neutrophils % Seg Neuts % (Manual) Lymphocytes % (Manual) Monocytes % (Manual) Eosinophils % (Manual) Basophils % (Manual) Nucleated RBC % Seg Neutrophils # Seg Neutrophils # Man Lymphocytes # (Manual) Monocytes # (Manual) Eosinophils # (Manual) Basophils # (Manual) PT INR Fibrinogen dRVVT Confirm Interp Factor V Activity POC ABG pH POC ABG pCO2 POC ABG pO2 ABG pO2 ABG HCO3 ABG Base Excess ABG Hemoglobin Oxyhemoglobin Sodium Potassium 3.3 L Chloride Carbon Dioxide BUN 66 H Creatinine 1.3 H Glucose 109 H POC Glucose Lactic Acid Calcium Phosphorus 2.20 L D Magnesium Direct Bilirubin AST ALT Alkaline Phosphatase Lactate Dehydrogenase Troponin T C-Reactive Protein Total Protein Albumin Prealbumin Triglycerides Cholesterol LDL Cholesterol Direct HDL Cholesterol Urine pH Urine WBC (Auto) Urine Creatinine Urine Total Protein Fluid Total Protein Vancomycin Trough Rheumatoid Factor Complement C4 Miscellaneous Test Crossmatch Allied health notes reviewed: RT (not tolerating weaning. Has been on hold as she has been vomiting)
[2017-01-23] MEDS: NORVASC PO SCH (16:32)
[2017-01-23] MEDS: APRESOLINE PO SCH (16:33)
[2017-01-23] MEDS: ALBURX 25% (ALBUMIN) IV SCH (17:25)
--- NOTE | 2017-01-23 19:52 | Progress Note ---
Assessment and Plan Assessment and plan: 46 years old female with massive stroke, now in vegetative state - Massive stroke with mass effect On vegetative state - Multiple episodes of sepsis with septic shock during her hospitalization Due to aspiration pneumonia/peritonitis from gastric perforation/UTI/candidemia/ decubitus ulcer Currently on meropenem with stop date 02/04 Scheduled for sacral decubitus debridement - Acute hypoxic respiratory failure Status post tracheostomy Unweanable from vent support - Acute renal failure Likely due to ATN Renal function improved significantly, creatinine within normal limits now - Paroxysmal atrial fibrillation with RVR Status post failed cardioversion Rate control Not on anticoagulation due to anemia/thrombocytopenia/massive stroke - Diabetes Accu-Cheks and SSI - Anemia Multifactorial, status post multiple PRBC transfusions Monitoring H&H - Thrombocytopenia Possible secondary to sepsis Now resolved - Electrolyte abnormalities Monitoring and replacing as needed - Severe protein calorie malnutrition Tube feeding per dietitian - Encephalopathy Toxic metabolic initially, underlying conditions treated In vegetative state now - Per family's wishes, full code despite extremely poor prognosis History Interval history: Ron[place] fever, tachycardic Hospitalist Physical - Constitutional Vitals: Temp Pulse Resp BP Pulse Ox 98.8 F 94 H 37 H 134/82 100 01/23/17 19:47 01/23/17 19:00 01/23/17 19:00 01/23/17 19:00 01/23/17 19:00 General appearance: Present: mild distress, obese - Neck Neck: Present: supple. Absent: enlarged thyroid, masses or JVD - Respiratory Respiratory effort: other (on vent) Respiratory: bilateral: diminished, rhonchi, negative: wheezing - Cardiovascular Rhythm: other (tachycardic) Heart Sounds: Present: S1 & S2. Absent: systolic murmur - Extremities Extremities: no ischemia, abnormal (contractures especially upper extremities) - Abdominal General gastrointestinal: soft, non-tender, non-distended, normal bowel sounds, other (PEG) - Psychiatric Psychiatric: other (unresponsive) - Neurologic Neurologic: other (left upward gaze, right-sided hemiplegia) - Additional findings Additional findings: Stage IV sacral decubitus Results - Labs CBC & Chem 7: 01/25/17 04:00 01/25/17 04:00 Labs: Laboratory Last Values WBC 9.4 K/mm3 (4.5-11.0) 01/22/17 07:20 RBC 2.75 M/mm3 (3.65-5.03) L 01/22/17 07:20 Hgb 7.5 gm/dl (10.1-14.3) L 01/22/17 07:20 Hct 22.7 % (30.3-42.9) L 01/22/17 07:20 MCV 82 fl (79-97) 01/22/17 07:20 MCH 27 pg (28-32) L 01/22/17 07:20 MCHC 33 % (30-34) 01/22/17 07:20 RDW 17.5 % (13.2-15.2) H 01/22/17 07:20 Plt Count 335 K/mm3 (140-440) 01/22/17 07:20 Lymph % (Auto) 11.7 % (13.4-35.0) L 01/15/17 12:45 [place] % (Auto) 7.8 % (0.0-7.3) H 01/15/17 12:45 Eos % (Auto) 0.1 % (0.0-4.3) 01/15/17 12:45 Baso % (Auto) 0.3 % (0.0-1.8) 01/15/17 12:45 Lymph # 1.9 K/mm3 (1.2-5.4) 01/15/17 12:45 [place] # 1.3 K/mm3 (0.0-0.8) H 01/15/17 12:45 Eos # 0.0 K/mm3 (0.0-0.4) 01/15/17 12:45 Baso # 0.0 K/mm3 (0.0-0.1) 01/15/17 12:45 Add Manual Diff Complete 12/19/16 05:02 Total Counted 100 12/19/16 05:02 Seg Neutrophils % 80.1 % (40.0-70.0) H 01/15/17 12:45 Seg Neuts % (Manual) 64.0 % (40.0-70.0) 12/19/16 05:02 Band Neutrophils % 15.0 % 12/19/16 05:02 Lymphocytes % (Manual) 13.0 % (13.4-35.0) L 12/19/16 05:02 Reactive Lymphs % (Man) 0 % 12/19/16 05:02 Monocytes % (Manual) 7.0 % (0.0-7.3) 12/19/16 05:02 Eosinophils % (Manual) 0 % (0.0-4.3) 12/19/16 05:02 Basophils % (Manual) 1.0 % (0.0-1.8) 12/19/16 05:02 Metamyelocytes % 0 % 12/19/16 05:02 Myelocytes % 0 % 12/19/16 05:02 Promyelocytes % 0 % 12/19/16 05:02 Blast Cells % 0 % 12/19/16 05:02 Nucleated RBC % 1.0 % (0.0-0.9) H 12/19/16 05:02 Seg Neutrophils # 13.0 K/mm3 (1.8-7.7) H 01/15/17 12:45 Seg Neutrophils # Man 12.9 K/mm3 (1.8-7.7) H 12/19/16 05:02 Band Neutrophils # 3.0 K/mm3 12/19/16 05:02 Lymphocytes # (Manual) 2.6 K/mm3 (1.2-5.4) 12/19/16 05:02 Abs React Lymphs (Man) 0.0 K/mm3 12/19/16 05:02 Monocytes # (Manual) 1.4 K/mm3 (0.0-0.8) H 12/19/16 05:02 Eosinophils # (Manual) 0.0 K/mm3 (0.0-0.4) 12/19/16 05:02 Basophils # (Manual) 0.2 K/mm3 (0.0-0.1) H 12/19/16 05:02 Metamyelocytes # 0.0 K/mm3 12/19/16 05:02 Myelocytes # 0.0 K/mm3 12/19/16 05:02 Promyelocytes # 0.0 K/mm3 12/19/16 05:02 Blast Cells # 0.0 K/mm3 12/19/16 05:02 Pathologist Review 09/13/16 04:00 WBC Morphology Not Reportable 12/19/16 05:02 Hypersegmented Neuts Not Reportable 12/19/16 05:02 Hyposegmented Neuts Not Reportable 12/19/16 05:02 Hypogranular Neuts Not Reportable 12/19/16 05:02 Smudge Cells Not Reportable 12/19/16 05:02 Toxic Granulation Not Reportable 12/19/16 05:02 Toxic Vacuolation Not Reportable 12/19/16 05:02 Dohle Bodies Not Reportable 12/19/16 05:02 Pelger-Huet Anomaly Not Reportable 12/19/16 05:02 Jasmina Rods Not Reportable 12/19/16 05:02 Platelet Estimate Consistent w auto 12/19/16 05:02 Clumped Platelets Not Reportable 12/19/16 05:02 Plt Clumps, EDTA Not Reportable 12/19/16 05:02 Large Platelets Not Reportable 12/19/16 05:02 Giant Platelets Not Reportable 12/19/16 05:02 Platelet Satelliting Not Reportable 12/19/16 05:02 Plt Morphology Comment Not Reportable 12/19/16 05:02 RBC Morphology Not Reportable 12/19/16 05:02 Dimorphic RBCs Not Reportable 12/19/16 05:02 Polychromasia Not Reportable 12/19/16 05:02 Hypochromasia Not Reportable 12/19/16 05:02 Poikilocytosis Not Reportable 12/19/16 05:02 Anisocytosis Not Reportable 12/19/16 05:02 Microcytosis Not Reportable 12/19/16 05:02 Macrocytosis Not Reportable 12/19/16 05:02 Spherocytes Not Reportable 12/19/16 05:02 Pappenheimer Bodies Not Reportable 12/19/16 05:02 Sickle Cells Not Reportable 12/19/16 05:02 Target Cells Few 12/19/16 05:02 Tear Drop Cells Not Reportable 12/19/16 05:02 Ovalocytes Not Reportable 12/19/16 05:02 Stomatocytes Rare 12/03/16 04:00 Helmet Cells Not Reportable 12/19/16 05:02 [place] Bodies Not Reportable 12/19/16 05:02 [place] Rings Not Reportable 12/19/16 05:02 [place] Cells Not Reportable 12/19/16 05:02 Bite Cells Not Reportable 12/19/16 05:02 Crenated Cell Not Reportable 12/19/16 05:02 Elliptocytes Not Reportable 12/19/16 05:02 Acanthocytes (Spur) Not Reportable 12/19/16 05:02 Rouleaux Not Reportable 12/19/16 05:02 Hemoglobin C Crystals Not Reportable 12/19/16 05:02 Schistocytes Not Reportable 12/19/16 05:02 Malaria parasites Not Reportable 12/19/16 05:02 ESR > 140.0 mm/Hr (0-20) 09/08/16 11:48 Jun Bodies Not Reportable 12/19/16 05:02 Hem Pathologist Commnt No 12/19/16 05:02 PT 15.4 Sec. (12.2-14.9) H 01/13/17 15:50 INR 1.16 (0.87-1.13) H 01/13/17 15:50 APTT 33.0 Sec. (24.2-36.6) 10/09/16 03:45 Thrombin Time 16.8 Sec. (15.1-19.6) 09/03/16 00:10 Fibrinogen 750 mg/dl (211-480) H 09/08/16 11:48 Lupus Anticoagulant see below 09/12/16 09:59 LA PTT Baseline See scanned report 09/12/16 09:59 dRVVT Confirm Interp Positive (Negative) H 09/12/16 09:59 dRVVT Screen 50:50 See scanned report 09/12/16 09:59 dRVVT Mix Interpret See scanned report 09/12/16 09:59 Protein C Antigen 122 % (70-140) 09/08/16 15:35 Free Protein S 97 % normal (50-147) 09/08/16 15:35 Total Protein S 109 % (70-140) 09/08/16 15:35 Antithrombin III Ag 100 % (80-120) 09/08/16 15:35 Heparin Anti-Xa, Unfract Negative (Negative) 09/29/16 13:35 Factor V Activity 182 % (65-150) H 09/08/16 15:35 POC ABG pH 7.436 (7.35-7.45) 01/20/17 12: ABG pH 7.450 pH Units (7.350-7.450) 12/05/16 Unknown POC ABG pCO2 35.3 (35-45) 01/20/17 12: ABG pCO2 29.6 mm Hg 12/05/16 Unknown POC ABG pO2 70 (80-105) L 01/20/17 12: ABG pO2 75.2 mm Hg (80.0-90.0) L 12/05/16 Unknown POC ABG HCO3 23.8 01/20/17 12: ABG HCO3 20.1 mmol/L (20.0-26.0) 12/05/16 Unknown POC ABG Total CO2 25 01/20/17 12: POC ABG O2 Sat 94 01/20/17 12: ABG O2 Saturation 96.8 % (95.0-99.0) 12/05/16 Unknown ABG O2 Content 9.9 (0.0-44) 12/05/16 Unknown POC ABG Base Excess 0 01/20/17 12: ABG Base Excess -3.4 mmol/L (-2.0-3.0) L 12/05/16 Unknown ABG Hemoglobin 7.4 gm/dl (12.0-16.0) L 12/05/16 Unknown ABG Carboxyhemoglobin 1.8 % (0.0-5.0) 12/05/16 Unknown ABG Methemoglobin 0.6 % (0.0-1.5) 12/05/16 Unknown Oxyhemoglobin 94.5 % (95.0-99.0) L 12/05/16 Unknown FiO2 30 % 01/20/17 12:17 Sodium 141 mmol/L (137-145) 01/23/17 06:10 Potassium 3.3 mmol/L (3.6-5.0) L 01/23/17 06:10 Chloride 101.3 mmol/L (98-107) 01/23/17 06:10 Carbon Dioxide 25 mmol/L (22-30) 01/23/17 06:10 Anion Gap 18 mmol/L 01/23/17 06:10 BUN 66 mg/dL (7-17) H 01/23/17 06:10 Creatinine 1.3 mg/dL (0.7-1.2) H 01/23/17 06:10 Estimated GFR 54 ml/min 01/23/17 06:10 BUN/Creatinine Ratio 51 % 01/23/17 06:10 Glucose 109 mg/dL (65-100) H 01/23/17 06:10 POC Glucose 120 (70-105) H 01/23/17 17:27 Osmolality 351 Mosm/kg 09/16/16 11:47 Lactic Acid 2.30 mmol/L (0.7-2.0) H* 01/09/17 08:22 Calcium 9.0 mg/dL (8.4-10.2) 01/23/17 06:10 Phosphorus 2.20 mg/dL (2.5-4.5) L D 01/23/17 06:10 Magnesium 1.70 mg/dL (1.7-2.3) 01/23/17 06:10 Total Bilirubin 0.40 mg/dL (0.1-1.2) 01/17/17 05:30 Direct Bilirubin 0.3 mg/dL (0-0.2) H 10/10/16 05:00 Indirect Bilirubin 0.1 mg/dL 10/10/16 05:00 AST 26 units/L (5-40) 01/17/17 05:30 ALT 35 units/L (7-56) 01/17/17 05:30 Alkaline Phosphatase 254 units/L (35-129) H 01/17/17 05:30 Ammonia 27.0 umol/L (25-60) 09/07/16 08:37 Lactate Dehydrogenase 170 units/L (91-180) 01/13/17 15:50 Total Creatine Kinase 121 units/L (30-135) 09/29/16 20:12 CK-MB (CK-2) < 1.0 ng/mL (0.0-4.0) 09/29/16 20:12 CK-MB (CK-2) Rel Index 0.8 (0-4) 09/29/16 20:12 Troponin T 0.204 ng/mL (0.00-0.029) H* 09/29/16 20:12 C-Reactive Protein 24.70 mg/dL (0.00-1.30) H 01/09/17 13:30 Total Protein 6.6 g/dL (6.3-8.2) 01/17/17 05:30 Albumin 1.3 g/dL (3.9-5) L 01/17/17 05:30 Albumin/Globulin Ratio 0.2 % 01/17/17 05:30 Prealbumin 0.110 g/L (0.200-0.400) L 12/29/16 05:15 Triglycerides 137 mg/dL (2-149) 09/29/16 20:12 Cholesterol 31 mg/dL (50-199) L 09/29/16 20:12 LDL Cholesterol Direct 4 mg/dL (50-130) L 09/29/16 20:12 HDL Cholesterol 3 mg/dL (40-59) L 09/29/16 20:12 Cholesterol/HDL Ratio 10.33 % 09/29/16 20:12 Angiotensin Convert Enz See scanned report 09/08/16 11:48 Renin 0.99 ng/mL/h (0.25-5.82) 10/07/16 10:56 Aldosterone <1 ng/dL () 10/07/16 10:56 Aldosterone/Renin Dir see below 10/07/16 10:56 Serotonin Release Assay See scanned report 09/29/16 13:35 TSH 1.010 mlU/mL (0.270-4.200) 09/07/16 08:37 HCG, Qual Negative (Negative) 09/03/16 00:10 Urine Color Yellow (Yellow) 11/05/16 13:09 Urine Turbidity Clear (Clear) 11/05/16 13:09 Urine pH 9.0 (5.0-7.0) H 11/05/16 13:09 Ur Specific [place] 1.011 (1.003-1.030) 11/05/16 13:09 Urine Protein 100 mg/dl mg/dL (Negative) 11/05/16 13:09 Urine Glucose (UA) Neg mg/dL (Negative) 11/05/16 13:09 Urine Ketones Neg mg/dL (Negative) 11/05/16 13:09 Urine Blood Neg (Negative) 11/05/16 13:09 Urine Nitrite Neg (Negative) 11/05/16 13:09 Urine Bilirubin Neg (Negative) 11/05/16 13:09 Urine Urobilinogen < 2.0 mg/dL (<2.0) 11/05/16 13:09 Ur Leukocyte Esterase Neg (Negative) 11/05/16 13:09 Urine WBC (Auto) 4.0 /HPF (0.0-6.0) 11/05/16 13:09 Urine RBC (Auto) 1.0 /HPF (0.0-6.0) 11/05/16 13:09 U Epithel Cells (Auto) 1.0 /HPF (0-13.0) 10/07/16 18:30 Urine Bacteria (Auto) 4+ /HPF (Negative) 11/05/16 13:09 Urine WBC Clumps 2+ /HPF 09/07/16 02:47 Hyaline Casts 4 /LPF 09/07/16 02:47 Urine Mucus Few /HPF 10/07/16 18:30 Urine Yeast (Budding) 3+ /HPF 10/07/16 18:30 Urine Eosinophils None seen (None Seen) 09/07/16 16:00 Urine Total Volume 950 11/12/16 10:18 Urine Creatinine 19.7 mg/dL (0.1-20.0) 11/12/16 10:18 Height (in) 65.0 inches 11/12/16 10:18 Weight (lb) 181.0 lbs 11/12/16 10:18 Creatinine Clearance 5 11/12/16 10:18 Urine Sodium 36 mEq/L 09/16/16 19:19 Urine Total Protein 16 mg/dL (5-11.8) H 09/16/16 19:19 Fluid Type Pleural 01/13/17 12:10 Fluid Color Yellow 01/13/17 12:10 Fluid Appearance Hazy 01/13/17 12:10 Fluid WBC 182 /mm3 01/13/17 12:10 Fluid RBC 41 /mm3 01/13/17 12:10 Fluid Seg Neutrophils 85.0 % 01/13/17 12:10 Fluid Lymphocytes 8.0 % 01/13/17 12:10 Fluid Reactive Lymphs 0 % 01/13/17 12:10 Fluid Monocytes 6.0 % 01/13/17 12:10 Fluid Eosinophils 1.0 % 01/13/17 12:10 Fluid Basophils 0 % 01/13/17 12:10 Fluid Total Protein 3.0 (15.0-45.0) L 01/13/17 12:10 Fluid LDH 1322 01/13/17 12:10 Fluid Comment Diff performed 01/13/17 12:10 Vancomycin Trough 2.3 ug/mL (5.0-20.0) L 09/21/16 13:00 Random Vancomycin 16.5 ug/mL (0-40.0) 11/28/16 09:45 Urine Opiates Screen Presumptive negative 09/03/16 15:11 Urine Methadone Screen Presumptive positive 09/03/16 15:11 Ur Barbiturates Screen Presumptive positive 09/03/16 15:11 Ur Phencyclidine Scrn Presumptive negative 09/03/16 15:11 Ur Amphetamines Screen Presumptive negative 09/03/16 15:11 U Benzodiazepines Scrn Presumptive negative 09/03/16 15:11 Urine Cocaine Screen Presumptive negative 09/03/16 15:11 U Marijuana (THC) Screen Presumptive positive 09/03/16 15:11 Drugs of Abuse Note Disclamer 09/03/16 15:11 Rheumatoid Factor 24 IU/ml (0-13) H 09/08/16 11:48 SAHIL Screen Negative (Negative) 09/07/16 09:20 Proteinase 3 (PR3) Ab <1.0 AI (<1.0) 09/07/16 09:20 Myeloperoxidase Ab <1.0 AI (<1.0) 09/07/16 09:20 Sjogren's Antibody <1.0 AI (<1.0) 09/08/16 15:35 Scl-70 Scleroderma Ab <1.0 AI (<1.0) 09/08/16 15:35 Centromere B Antibody <1.0 AI (<1.0) 09/08/16 12:02 Heparin-induced Plt Ab Negative (Negative) 09/29/16 13:35 UF Heparin High Dose 11 % Release 09/29/16 13:35 SUDHIR UFH Low Dose 0.1 6 % Release 09/29/16 13:35 SUDHIR UFH Low Dose 0.5 8 % Release 09/29/16 13:35 Cardiolipid IgG Ab <14 GPL (<=14) 09/12/16 09:59 Cardiolipid IgA Ab <11 APL (<=11) 09/12/16 09:59 Cardiolipid IgM Ab <12 MPL (<=12) 09/12/16 09:59 Complement C3 148 mg/dL (90-180) 09/07/16 09:20 Complement C4 58 mg/dL (16-47) H 09/07/16 09:20 RPR Nonreactive (Nonreactive) 09/08/16 11:48 Hepatitis A IgM Ab Non-reactive (NonReactive) 09/24/16 14:40 Hep Bs Antigen Non-reactive (Negative) 09/24/16 14:40 Hep B Core IgM Ab Non-reactive (NonReactive) 09/24/16 14:40 Hepatitis C Antibody Non-reactive (NonReactive) 09/24/16 14:40 HIV 1&2 Antibody Rapid Non react (Non React) 09/08/16 11:48 HIV P24 Antigen Non react (Non React) 09/08/16 11:48 Miscellaneous Test Flexitest 1 H 01/09/17 18:45 Blood Type A POSITIVE 01/08/17 10:37 Antibody Screen Negative 01/08/17 10:37 DELORIS Antibody Screen Negative 11/24/16 11:20 Crossmatch See Detail 01/08/17 10:37
[2017-01-23] MEDS ORDERED: TPN ADULT IV SCH (20:00)
[2017-01-23] MEDS ORDERED: INTRALIPID 20% 250 ML IV SCH (20:00)
[2017-01-24] MEDS: APRESOLINE PO SCH ×4 (00:07→22:07)
[2017-01-24] MEDS: HumuLIN R SUB-Q SCH ×3 (00:23→13:36)
[2017-01-24] MEDS: LOPRESSOR PO SCH ×5 (00:24→17:54)
[2017-01-24] MEDS: DUONEB *Not for PRN Use IH SCH ×4 (01:55→20:13)
[2017-01-24] MEDS: REGLAN IV SCH ×3 (05:51→22:04)
[2017-01-24] MEDS: LASIX IV SCH ×2 (05:53→17:53)
[2017-01-24] MEDS: ALBURX 25% (ALBUMIN) IV SCH (05:54)
[2017-01-24 06:49] LABS: BUN/Creatinine Ratio 47; Blood Urea Nitrogen 47 mg/dL (7-17); Calcium 8.9 mg/dL (8.4-10.2); Hemolysis Index 2
--- NOTE | 2017-01-24 09:02 | Progress Note ---
Assessment and Plan Assessment * Oliguric acute kidney injury secondary to ATN on CKD - baseline SCr 1.7mg/dL --24h urine CrCl 5ml/min Sep 24 * Acute CVA - left MCA with midline shift * Atrial fibrillation w/ RVR * Enteric fistula * Acute hypoxic respiratory failure * Sacral decubitus ulcer s/p debridement, wound vac in place * s/p Cardiac arrest * Hx of GI bleed * Left renal artery stenosis * Anemia * Hx of hypertension * s/p Candidemia * metabolic acidosis Plan: * Continue HD MWF * UF as tolerated * Adjust K bath with dialysis * Transfuse pRBC per primary team prn. Epogen 20k TIW * Dose medications for renal function * Avoid potential nephrotoxins * Rate control per cardiology * Vent management per pulm/CCM * Pressors prn for MAP>65 Subjective Date of service: 01/24/17 Principal diagnosis: Acute resp failure on MVS; S/P Acute CVA; Acute Encephalopathy; JUANITA Interval history: new events from last pm noted Objective - Exam Narrative Exam: Gen. appearance: Patient lying in bed, no apparent distress, 4. restraints HEENT: Normocephalic, atraumatic, pupils equally round and reactive to light, extraocular movement intact, and no sclericterus,. No JVD or thyromegaly or nodule,neck supple, no carotid bruit ,mucous membranes moist, unable to examine oral cavity Heart: S1, S2, regular rate and rhythm Lungs: Clear to auscultation bilaterally, breathing comfortable Abdomen: Positive bowel sounds, nontender, nondistended, no organomegaly Extremity: No edema, cyanosis, clubbing Skin: No rash, nodules, warm, dry Neuro: Difficult to assess, facial droop, moves all 4 extremities - Vital Signs Vital signs: Vital Signs - 12hr 01/23/17 01/23/17 01/23/17 22:00 23:00 23:27 Temperature 98.7 F Pulse Rate 102 H 108 H Pulse Rate [ Anterior Bilateral Throughout] Respiratory 21 21 Rate Respiratory Rate [Anterior Bilateral Throughout] Blood Pressure 123/83 124/76 O2 Sat by Pulse 99 99 Oximetry O2 Sat by Pulse Oximetry [ Assessment] 01/24/17 01/24/17 01/24/17 00:00 00:07 00:13 Temperature Pulse Rate 112 H 97 H 111 H Pulse Rate [ Anterior Bilateral Throughout] Respiratory 25 H Rate Respiratory Rate [Anterior Bilateral Throughout] Blood Pressure 124/84 122/70 112/79 O2 Sat by Pulse 100 100 Oximetry O2 Sat by Pulse Oximetry [ Assessment] 01/24/17 01/24/17 01/24/17 00:24 01:00 01:57 Temperature Pulse Rate 117 H 105 H Pulse Rate [ 110 H Anterior Bilateral Throughout] Respiratory 24 Rate Respiratory 19 Rate [Anterior Bilateral Throughout] Blood Pressure 134/90 121/82 O2 Sat by Pulse 100 Oximetry O2 Sat by Pulse Oximetry [ Assessment] 01/24/17 01/24/17 01/24/17 02:00 02:10 03:00 Temperature Pulse Rate 109 H 110 H Pulse Rate [ 108 H Anterior Bilateral Throughout] Respiratory 17 24 Rate Respiratory 15 Rate [Anterior Bilateral Throughout] Blood Pressure 132/76 112/67 O2 Sat by Pulse 98 100 Oximetry O2 Sat by Pulse Oximetry [ Assessment] 01/24/17 01/24/17 01/24/17 03:03 03:55 04:00 Temperature 99.7 F H Pulse Rate 106 H Pulse Rate [ Anterior Bilateral Throughout] Respiratory 17 Rate Respiratory Rate [Anterior Bilateral Throughout] Blood Pressure 113/68 O2 Sat by Pulse 100 Oximetry O2 Sat by Pulse 99 Oximetry [ Assessment] 01/24/17 01/24/17 01/24/17 04:20 05:00 05:51 Temperature Pulse Rate 105 H 101 H 108 H Pulse Rate [ Anterior Bilateral Throughout] Respiratory 19 Rate Respiratory Rate [Anterior Bilateral Throughout] Blood Pressure 118/70 96/50 125/80 O2 Sat by Pulse 100 100 Oximetry O2 Sat by Pulse Oximetry [ Assessment] 01/24/17 01/24/17 01/24/17 06:00 07:00 08:00 Temperature 97.8 F Pulse Rate 101 H 95 H 98 H Pulse Rate [ Anterior Bilateral Throughout] Respiratory 23 20 25 H Rate Respiratory Rate [Anterior Bilateral Throughout] Blood Pressure 130/77 124/78 124/78 O2 Sat by Pulse 100 100 100 Oximetry O2 Sat by Pulse Oximetry [ Assessment] - Lab 01/22/17 07:20 01/24/17 05:50 Most recent lab results ABG pH 7.450 pH Units (7.350-7.450) 12/05/16 Unknown ABG pCO2 29.6 mm Hg 12/05/16 Unknown ABG pO2 75.2 mm Hg (80.0-90.0) L 12/05/16 Unknown ABG HCO3 20.1 mmol/L (20.0-26.0) 12/05/16 Unknown ABG O2 Saturation 96.8 % (95.0-99.0) 12/05/16 Unknown Calcium 8.9 mg/dL (8.4-10.2) 01/24/17 05:50 Phosphorus 2.30 mg/dL (2.5-4.5) L 01/24/17 05:50 Magnesium 1.60 mg/dL (1.7-2.3) L 01/24/17 05:50 Urine Creatinine 19.7 mg/dL (0.1-20.0) 11/12/16 10:18 Urine Sodium 36 mEq/L 09/16/16 19:19 Urine Total Protein 16 mg/dL (5-11.8) H 09/16/16 19:19
[2017-01-24] MEDS: HEPARIN SUB-Q SCH ×2 (09:44→22:05)
[2017-01-24] MEDS: ROBINUL PO SCH ×2 (09:44→22:05)
[2017-01-24] MEDS: PROTONIX FEEDTUBE SCH (09:44)
[2017-01-24] MEDS: MERREM IV SCH (10:02)
[2017-01-24] MEDS: NACL 0.9% IV SCH (10:02)
[2017-01-24] MEDS: NORVASC PO SCH (10:02)
--- NOTE | 2017-01-24 10:23 | Progress Note ---
Assessment and Plan Acute Hypoxemic Respiratory Failure (now with exacerbation and back on MVS) Hypertension (unable to receive p.o. meds) Atrial Fibrillation with RVR s/p tracheostomy Acute encephalopathy s/p CVA Oropharyngeal dysphagia Enterococcal bacteremia sepsis syndrome Sacral Decubitus Ulcer (s/p surgical debridement) Anemia Obesity JUANITA now on hemodialysis Enteric Fistula (Still await Ethics consult evaluation) - continue to hold tube feeds due to persistent emesis; continue reglan at 5mg IV q6h - will discuss PEG placement with surgeon to aid transfer to a intermodal customer service care facility - will order right chest tube placement for continuous suction and see if aids weaning - repeated CXR prior to ensure there is still persistent effusion - continue fentanyl patch for pain issues especially s/p debridement - continue wound care per WCT and RN's (she is s/p surgical debridement) - continue anti-infectives per ID recs - prn CRP & lactate levels if clinically indicated (Follow WBC also) - keep on with daily PSV trials and / or T-piece as tolerated (Tolerated 5 mins today) - continue TPN administration - continue scopolamine for secretion control - continue to wean FiO2 for sats > 94% - continue bronchodilators and pulmonary toilet - VAP bundle addressed - continue prn IV metoprolol - continue metoprolol and amlodipine (hold for hypotension) - continue to follow electrolytes and correct as necessary - continue GI & VTE prophylaxis - Continue flu & pneumovax per protocol - ethics consult placed and pending .....she remains critically ill on life sustaining interventions including MVS and at risk for further deterioration including ....34' CCT today without overlap ....care plan discussed at length during team rounds ...intermodal customer service prognosis remains guarded and this has intermittently been conveyed to family Subjective Date of service: 01/24/17 Principal diagnosis: Acute resp failure on MVS; S/P Acute CVA; Acute Encephalopathy; JUANITA Interval history: Patient is seen today for: Acute resp failure on MVS; S/P Acute CVA; Acute Encephalopathy; JUANITA Seen and examined at bedside; 24hour events reviewed; nursing and respiratory care staff consulted; no adverse overnight events reported to me; Cecilia remains critically ill and is still not tolerating weaning well; did not tolerate recent trickle feeding trial also; AMS is persistent; no seizure activity Objective Vital Signs - 12hr 12/06/0601/23/17 01/24/17 23:00 23:27 00:00 Temperature 98.7 F Pulse Rate 108 H 112 H Pulse Rate [ Anterior Bilateral Throughout] Respiratory 21 25 H Rate Respiratory Rate [Anterior Bilateral Throughout] Blood Pressure 124/76 124/84 O2 Sat by Pulse 99 100 Oximetry O2 Sat by Pulse Oximetry [ Assessment] 01/24/17 01/24/17 01/24/17 00:07 00:13 00:24 Temperature Pulse Rate 97 H 111 H 117 H Pulse Rate [ Anterior Bilateral Throughout] Respiratory Rate Respiratory Rate [Anterior Bilateral Throughout] Blood Pressure 122/70 112/79 134/90 O2 Sat by Pulse 100 Oximetry O2 Sat by Pulse Oximetry [ Assessment] 01/24/17 01/24/17 01/24/17 01:00 01:57 02:00 Temperature Pulse Rate 105 H 109 H Pulse Rate [ 110 H Anterior Bilateral Throughout] Respiratory 24 17 Rate Respiratory 19 Rate [Anterior Bilateral Throughout] Blood Pressure 121/82 132/76 O2 Sat by Pulse 100 98 Oximetry O2 Sat by Pulse Oximetry [ Assessment] 01/24/17 01/24/17 01/24/17 02:10 03:00 03:03 Temperature Pulse Rate 110 H Pulse Rate [ 108 H Anterior Bilateral Throughout] Respiratory 24 Rate Respiratory 15 Rate [Anterior Bilateral Throughout] Blood Pressure 112/67 O2 Sat by Pulse 100 Oximetry O2 Sat by Pulse 99 Oximetry [ Assessment] 01/24/17 01/24/17 01/24/17 03:55 04:00 04:20 Temperature 99.7 F H Pulse Rate 106 H 105 H Pulse Rate [ Anterior Bilateral Throughout] Respiratory 17 Rate Respiratory Rate [Anterior Bilateral Throughout] Blood Pressure 113/68 118/70 O2 Sat by Pulse 100 100 Oximetry O2 Sat by Pulse Oximetry [ Assessment] 01/24/17 01/24/17 01/24/17 05:00 05:51 06:00 Temperature Pulse Rate 101 H 108 H 101 H Pulse Rate [ Anterior Bilateral Throughout] Respiratory 19 23 Rate Respiratory Rate [Anterior Bilateral Throughout] Blood Pressure 96/50 125/80 130/77 O2 Sat by Pulse 100 100 Oximetry O2 Sat by Pulse Oximetry [ Assessment] 01/24/17 01/24/17 01/24/17 07:00 08:00 09:35 Temperature 97.8 F Pulse Rate 95 H 98 H 97 H Pulse Rate [ Anterior Bilateral Throughout] Respiratory 20 25 H Rate Respiratory Rate [Anterior Bilateral Throughout] Blood Pressure 124/78 124/78 112/71 O2 Sat by Pulse 100 100 Oximetry O2 Sat by Pulse Oximetry [ Assessment] 01/24/17 01/24/17 09:41 09:51 Temperature Pulse Rate Pulse Rate [ 103 H 101 H Anterior Bilateral Throughout] Respiratory Rate Respiratory 29 H 21 Rate [Anterior Bilateral Throughout] Blood Pressure O2 Sat by Pulse Oximetry O2 Sat by Pulse Oximetry [ Assessment] Constitutional: appears uncomfortable, other (not tracking) Eyes: non-icteric, other (tracheostomy tube in midline of neck) ENT: oropharynx moist, oropharyngeal exudate pre Neck: supple, no lymphadenopathy, no JVD, other (no thyromegaly) Effort: mildly labored Ascultation: Bilateral: diminished breath sounds (R > l base), rhonchi (and referred upper airway sounds) Percussion: Right: dull (base) Cardiovascular: regular rate and rhythm, other (no rubs / murmurs) Gastrointestinal: hypoactive bowel sounds, soft, non-tender, non-distended, other (RLQ & LUQ stomas with colostomy bags) Integumentary: decubitus ulcer (sacral; stage 4 s/p surgical debridement), other (no rash; no cellulitis; poor turgor) Extremities: no cyanosis, pulses normal, no ischemia or petechiae, edema (1+ bilaterally) Neurologic: pupils equal and round, unable to assess, other (encephalopathic) Psychiatric: other (unable to assess) CBC and BMP: 01/26/17 04:20 01/26/17 04:20 ABG, PT/INR, D-dimer: ABG POC ABG pH 7.436 (7.35-7.45) 01/20/17 12: ABG pH 7.450 pH Units (7.350-7.450) 12/05/16 Unknown POC ABG pCO2 35.3 (35-45) 01/20/17 12: ABG pCO2 29.6 mm Hg 12/05/16 Unknown POC ABG pO2 70 (80-105) L 01/20/17 12: ABG pO2 75.2 mm Hg (80.0-90.0) L 12/05/16 Unknown POC ABG HCO3 23.8 01/20/17 12:17 POC ABG Total CO2 25 01/20/17 12:17 POC ABG O2 Sat 94 01/20/17 12:17 ABG O2 Saturation 96.8 % (95.0-99.0) 12/05/16 Unknown PT/INR, D-dimer PT 15.4 Sec. (12.2-14.9) H 01/13/17 15:50 INR 1.16 (0.87-1.13) H 01/13/17 15:50 Abnormal lab findings: Abnormal Labs 09/03/16 09/03/16 09/03/16 00:03 00:10 00:10 WBC 13.9 H RBC 5.95 H Hgb Hct 44.0 H MCV 74 L MCH 22 L MCHC RDW 17.5 H Plt Count Lymph % (Auto) [place] % (Auto) Lymph # [place] # Baso # Seg Neutrophils % Seg Neuts % (Manual) Lymphocytes % (Manual) 54.0 H Monocytes % (Manual) Eosinophils % (Manual) Basophils % (Manual) Nucleated RBC % Seg Neutrophils # Seg Neutrophils # Man Lymphocytes # (Manual) 7.5 H Monocytes # (Manual) Eosinophils # (Manual) Basophils # (Manual) PT INR Fibrinogen dRVVT Confirm Interp Factor V Activity POC ABG pH POC ABG pCO2 POC ABG pO2 ABG pO2 ABG HCO3 ABG Base Excess ABG Hemoglobin Oxyhemoglobin Sodium Potassium 2.8 L* Chloride Carbon Dioxide 21 L BUN Creatinine 1.7 H Glucose 159 H POC Glucose 177 H Lactic Acid Calcium Phosphorus Magnesium Direct Bilirubin AST ALT Alkaline Phosphatase Lactate Dehydrogenase Troponin T C-Reactive Protein Total Protein Albumin Prealbumin Triglycerides Cholesterol LDL Cholesterol Direct HDL Cholesterol Urine pH Urine WBC (Auto) Urine Creatinine Urine Total Protein Fluid Total Protein Vancomycin Trough Rheumatoid Factor Complement C4 Miscellaneous Test Crossmatch 09/03/16 09/03/16 09/03/16 12:12 15:07 16:20 WBC RBC Hgb Hct MCV MCH MCHC RDW Plt Count Lymph % (Auto) [place] % (Auto) Lymph # [place] # Baso # Seg Neutrophils % Seg Neuts % (Manual) Lymphocytes % (Manual) Monocytes % (Manual) Eosinophils % (Manual) Basophils % (Manual) Nucleated RBC % Seg Neutrophils # Seg Neutrophils # Man Lymphocytes # (Manual) Monocytes # (Manual) Eosinophils # (Manual) Basophils # (Manual) PT INR Fibrinogen dRVVT Confirm Interp Factor V Activity POC ABG pH 7.452 H POC ABG pCO2 POC ABG pO2 ABG pO2 ABG HCO3 ABG Base Excess ABG Hemoglobin Oxyhemoglobin Sodium Potassium Chloride Carbon Dioxide BUN Creatinine Glucose POC Glucose 178 H Lactic Acid Calcium Phosphorus 2.20 L Magnesium 1.60 L Direct Bilirubin AST ALT Alkaline Phosphatase Lactate Dehydrogenase Troponin T C-Reactive Protein Total Protein Albumin Prealbumin Triglycerides Cholesterol LDL Cholesterol Direct HDL Cholesterol Urine pH Urine WBC (Auto) Urine Creatinine Urine Total Protein Fluid Total Protein Vancomycin Trough Rheumatoid Factor Complement C4 Miscellaneous Test Crossmatch 09/03/16 09/03/16 09/03/16 17:57 17:58 23:50 WBC RBC Hgb Hct MCV MCH MCHC RDW Plt Count Lymph % (Auto) [place] % (Auto) Lymph # [place] # Baso # Seg Neutrophils % Seg Neuts % (Manual) Lymphocytes % (Manual) Monocytes % (Manual) Eosinophils % (Manual) Basophils % (Manual) Nucleated RBC % Seg Neutrophils # Seg Neutrophils # Man Lymphocytes # (Manual) Monocytes # (Manual) Eosinophils # (Manual) Basophils # (Manual) PT INR Fibrinogen dRVVT Confirm Interp Factor V Activity POC ABG pH POC ABG pCO2 POC ABG pO2 ABG pO2 ABG HCO3 ABG Base Excess ABG Hemoglobin Oxyhemoglobin Sodium Potassium Chloride Carbon Dioxide BUN Creatinine Glucose POC Glucose 162 H 145 H Lactic Acid Calcium Phosphorus 2.30 L Magnesium Direct Bilirubin AST ALT Alkaline Phosphatase Lactate Dehydrogenase Troponin T C-Reactive Protein Total Protein Albumin Prealbumin Triglycerides Cholesterol LDL Cholesterol Direct HDL Cholesterol Urine pH Urine WBC (Auto) Urine Creatinine Urine Total Protein Fluid Total Protein Vancomycin Trough Rheumatoid Factor Complement C4 Miscellaneous Test Crossmatch 09/04/16 09/04/16 09/04/16 03:31 03:31 05:42 WBC RBC Hgb 9.7 L D Hct MCV 72 L MCH 23 L MCHC RDW 17.5 H Plt Count Lymph % (Auto) 11.1 L [place] % (Auto) Lymph # [place] # Baso # Seg Neutrophils % 84.3 H Seg Neuts % (Manual) Lymphocytes % (Manual) Monocytes % (Manual) Eosinophils % (Manual) Basophils % (Manual) Nucleated RBC % Seg Neutrophils # 8.9 H Seg Neutrophils # Man Lymphocytes # (Manual) Monocytes # (Manual) Eosinophils # (Manual) Basophils # (Manual) PT INR Fibrinogen dRVVT Confirm Interp Factor V Activity POC ABG pH POC ABG pCO2 POC ABG pO2 ABG pO2 ABG HCO3 ABG Base Excess ABG Hemoglobin Oxyhemoglobin Sodium 135 L Potassium 2.9 L* Chloride 97.2 L Carbon Dioxide 19 L BUN Creatinine 1.7 H Glucose 170 H POC Glucose 152 H Lactic Acid Calcium Phosphorus Magnesium Direct Bilirubin AST ALT Alkaline Phosphatase Lactate Dehydrogenase Troponin T C-Reactive Protein Total Protein Albumin Prealbumin Triglycerides 160 H Cholesterol LDL Cholesterol Direct HDL Cholesterol 31 L Urine pH Urine WBC (Auto) Urine Creatinine Urine Total Protein Fluid Total Protein Vancomycin Trough Rheumatoid Factor Complement C4 Miscellaneous Test Crossmatch 09/04/16 09/04/16 09/04/16 11:34 17:46 23:29 WBC RBC Hgb Hct MCV MCH MCHC RDW Plt Count Lymph % (Auto) [place] % (Auto) Lymph # [place] # Baso # Seg Neutrophils % Seg Neuts % (Manual) Lymphocytes % (Manual) Monocytes % (Manual) Eosinophils % (Manual) Basophils % (Manual) Nucleated RBC % Seg Neutrophils # Seg Neutrophils # Man Lymphocytes # (Manual) Monocytes # (Manual) Eosinophils # (Manual) Basophils # (Manual) PT INR Fibrinogen dRVVT Confirm Interp Factor V Activity POC ABG pH POC ABG pCO2 POC ABG pO2 ABG pO2 ABG HCO3 ABG Base Excess ABG Hemoglobin Oxyhemoglobin Sodium Potassium Chloride Carbon Dioxide BUN Creatinine Glucose POC Glucose 165 H 210 H 139 H Lactic Acid Calcium Phosphorus Magnesium Direct Bilirubin AST ALT Alkaline Phosphatase Lactate Dehydrogenase Troponin T C-Reactive Protein Total Protein Albumin Prealbumin Triglycerides Cholesterol LDL Cholesterol Direct HDL Cholesterol Urine pH Urine WBC (Auto) Urine Creatinine Urine Total Protein Fluid Total Protein Vancomycin Trough Rheumatoid Factor Complement C4 Miscellaneous Test Crossmatch 09/05/16 09/05/16 09/05/16 04:05 04:05 05:38 WBC RBC Hgb Hct MCV 76 L D MCH 23 L MCHC RDW 17.8 H Plt Count Lymph % (Auto) [place] % (Auto) Lymph # [place] # Baso # Seg Neutrophils % Seg Neuts % (Manual) Lymphocytes % (Manual) Monocytes % (Manual) Eosinophils % (Manual) Basophils % (Manual) Nucleated RBC % Seg Neutrophils # Seg Neutrophils # Man Lymphocytes # (Manual) Monocytes # (Manual) Eosinophils # (Manual) Basophils # (Manual) PT INR Fibrinogen dRVVT Confirm Interp Factor V Activity POC ABG pH POC ABG pCO2 POC ABG pO2 ABG pO2 ABG HCO3 ABG Base Excess ABG Hemoglobin Oxyhemoglobin Sodium 134 L Potassium Chloride Carbon Dioxide 18 L BUN Creatinine 1.8 H Glucose 192 H POC Glucose 175 H Lactic Acid Calcium Phosphorus Magnesium Direct Bilirubin AST ALT Alkaline Phosphatase Lactate Dehydrogenase Troponin T C-Reactive Protein Total Protein Albumin Prealbumin Triglycerides Cholesterol LDL Cholesterol Direct HDL Cholesterol Urine pH Urine WBC (Auto) Urine Creatinine Urine Total Protein Fluid Total Protein Vancomycin Trough Rheumatoid Factor Complement C4 Miscellaneous Test Crossmatch 09/05/16 09/05/16 09/05/16 11:38 17:48 23:22 WBC RBC Hgb Hct MCV MCH MCHC RDW Plt Count Lymph % (Auto) [place] % (Auto) Lymph # [place] # Baso # Seg Neutrophils % Seg Neuts % (Manual) Lymphocytes % (Manual) Monocytes % (Manual) Eosinophils % (Manual) Basophils % (Manual) Nucleated RBC % Seg Neutrophils # Seg Neutrophils # Man Lymphocytes # (Manual) Monocytes # (Manual) Eosinophils # (Manual) Basophils # (Manual) PT INR Fibrinogen dRVVT Confirm Interp Factor V Activity POC ABG pH POC ABG pCO2 POC ABG pO2 ABG pO2 ABG HCO3 ABG Base Excess ABG Hemoglobin Oxyhemoglobin Sodium Potassium Chloride Carbon Dioxide BUN Creatinine Glucose POC Glucose 164 H 186 H 195 H Lactic Acid Calcium Phosphorus Magnesium Direct Bilirubin AST ALT Alkaline Phosphatase Lactate Dehydrogenase Troponin T C-Reactive Protein Total Protein Albumin Prealbumin Triglycerides Cholesterol LDL Cholesterol Direct HDL Cholesterol Urine pH Urine WBC (Auto) Urine Creatinine Urine Total Protein Fluid Total Protein Vancomycin Trough Rheumatoid Factor Complement C4 Miscellaneous Test Crossmatch 09/06/16 09/06/16 09/06/16 04:12 05:59 07:32 WBC RBC Hgb Hct MCV MCH MCHC RDW Plt Count Lymph % (Auto) [place] % (Auto) Lymph # [place] # Baso # Seg Neutrophils % Seg Neuts % (Manual) Lymphocytes % (Manual) Monocytes % (Manual) Eosinophils % (Manual) Basophils % (Manual) Nucleated RBC % Seg Neutrophils # Seg Neutrophils # Man Lymphocytes # (Manual) Monocytes # (Manual) Eosinophils # (Manual) Basophils # (Manual) PT INR Fibrinogen dRVVT Confirm Interp Factor V Activity POC ABG pH 7.514 H POC ABG pCO2 29.1 L POC ABG pO2 72 L ABG pO2 ABG HCO3 ABG Base Excess ABG Hemoglobin Oxyhemoglobin Sodium 133 L Potassium 3.4 L Chloride 94.9 L Carbon Dioxide 19 L BUN 30 H Creatinine 2.1 H Glucose 139 H POC Glucose 146 H Lactic Acid Calcium Phosphorus Magnesium Direct Bilirubin AST ALT Alkaline Phosphatase Lactate Dehydrogenase Troponin T C-Reactive Protein Total Protein Albumin Prealbumin Triglycerides Cholesterol LDL Cholesterol Direct HDL Cholesterol Urine pH Urine WBC (Auto) Urine Creatinine Urine Total Protein Fluid Total Protein Vancomycin Trough Rheumatoid Factor Complement C4 Miscellaneous Test Crossmatch 09/06/16 09/06/16 09/06/16 11:57 17:58 19:02 WBC RBC Hgb Hct MCV MCH MCHC RDW Plt Count Lymph % (Auto) [place] % (Auto) Lymph # [place] # Baso # Seg Neutrophils % Seg Neuts % (Manual) Lymphocytes % (Manual) Monocytes % (Manual) Eosinophils % (Manual) Basophils % (Manual) Nucleated RBC % Seg Neutrophils # Seg Neutrophils # Man Lymphocytes # (Manual) Monocytes # (Manual) Eosinophils # (Manual) Basophils # (Manual) PT INR Fibrinogen dRVVT Confirm Interp Factor V Activity POC ABG pH 7.465 H POC ABG pCO2 32.0 L POC ABG pO2 ABG pO2 ABG HCO3 ABG Base Excess ABG Hemoglobin Oxyhemoglobin Sodium Potassium Chloride Carbon Dioxide BUN Creatinine Glucose POC Glucose 165 H 160 H Lactic Acid Calcium Phosphorus Magnesium Direct Bilirubin AST ALT Alkaline Phosphatase Lactate Dehydrogenase Troponin T C-Reactive Protein Total Protein Albumin Prealbumin Triglycerides Cholesterol LDL Cholesterol Direct HDL Cholesterol Urine pH Urine WBC (Auto) Urine Creatinine Urine Total Protein Fluid Total Protein Vancomycin Trough Rheumatoid Factor Complement C4 Miscellaneous Test Crossmatch 09/06/16 09/07/16 09/07/16 23:45 02:47 02:47 WBC RBC Hgb Hct MCV MCH MCHC RDW Plt Count Lymph % (Auto) [place] % (Auto) Lymph # [place] # Baso # Seg Neutrophils % Seg Neuts % (Manual) Lymphocytes % (Manual) Monocytes % (Manual) Eosinophils % (Manual) Basophils % (Manual) Nucleated RBC % Seg Neutrophils # Seg Neutrophils # Man Lymphocytes # (Manual) Monocytes # (Manual) Eosinophils # (Manual) Basophils # (Manual) PT INR Fibrinogen dRVVT Confirm Interp Factor V Activity POC ABG pH POC ABG pCO2 POC ABG pO2 ABG pO2 ABG HCO3 ABG Base Excess ABG Hemoglobin Oxyhemoglobin Sodium Potassium Chloride Carbon Dioxide BUN Creatinine Glucose POC Glucose 204 H Lactic Acid Calcium Phosphorus Magnesium Direct Bilirubin AST ALT Alkaline Phosphatase Lactate Dehydrogenase Troponin T C-Reactive Protein Total Protein Albumin Prealbumin Triglycerides Cholesterol LDL Cholesterol Direct HDL Cholesterol Urine pH Urine WBC (Auto) 68.0 H Urine Creatinine 106.1 H Urine Total Protein Fluid Total Protein Vancomycin Trough Rheumatoid Factor Complement C4 Miscellaneous Test Crossmatch 09/07/16 09/07/16 09/07/16 04:50 06:19 06:39 WBC RBC Hgb Hct MCV MCH MCHC RDW Plt Count Lymph % (Auto) [place] % (Auto) Lymph # [place] # Baso # Seg Neutrophils % Seg Neuts % (Manual) Lymphocytes % (Manual) Monocytes % (Manual) Eosinophils % (Manual) Basophils % (Manual) Nucleated RBC % Seg Neutrophils # Seg Neutrophils # Man Lymphocytes # (Manual) Monocytes # (Manual) Eosinophils # (Manual) Basophils # (Manual) PT INR Fibrinogen dRVVT Confirm Interp Factor V Activity POC ABG pH 7.457 H POC ABG pCO2 32.1 L POC ABG pO2 76 L ABG pO2 ABG HCO3 ABG Base Excess ABG Hemoglobin Oxyhemoglobin Sodium 132 L Potassium Chloride 94.7 L Carbon Dioxide BUN 53 H Creatinine 2.9 H Glucose 151 H POC Glucose 149 H Lactic Acid Calcium Phosphorus Magnesium Direct Bilirubin AST ALT Alkaline Phosphatase Lactate Dehydrogenase Troponin T C-Reactive Protein Total Protein Albumin Prealbumin Triglycerides Cholesterol LDL Cholesterol Direct HDL Cholesterol Urine pH Urine WBC (Auto) Urine Creatinine Urine Total Protein Fluid Total Protein Vancomycin Trough Rheumatoid Factor Complement C4 Miscellaneous Test Crossmatch 09/07/16 09/07/16 09/07/16 09:20 11:43 11:43 WBC 19.4 H RBC Hgb 8.3 L Hct 26.4 L D MCV 72 L D MCH 22 L MCHC RDW 17.9 H Plt Count Lymph % (Auto) 8.5 L [place] % (Auto) Lymph # [place] # 1.0 H Baso # Seg Neutrophils % 85.8 H Seg Neuts % (Manual) Lymphocytes % (Manual) Monocytes % (Manual) Eosinophils % (Manual) Basophils % (Manual) Nucleated RBC % Seg Neutrophils # 16.6 H Seg Neutrophils # Man Lymphocytes # (Manual) Monocytes # (Manual) Eosinophils # (Manual) Basophils # (Manual) PT INR Fibrinogen dRVVT Confirm Interp Factor V Activity POC ABG pH POC ABG pCO2 POC ABG pO2 ABG pO2 ABG HCO3 ABG Base Excess ABG Hemoglobin Oxyhemoglobin Sodium 134 L Potassium Chloride 97.2 L Carbon Dioxide 20 L BUN 58 H Creatinine 2.9 H Glucose 147 H POC Glucose Lactic Acid Calcium Phosphorus 2.40 L Magnesium 2.40 H Direct Bilirubin AST ALT Alkaline Phosphatase Lactate Dehydrogenase Troponin T C-Reactive Protein Total Protein 5.8 L Albumin 2.2 L Prealbumin Triglycerides Cholesterol LDL Cholesterol Direct HDL Cholesterol Urine pH Urine WBC (Auto) Urine Creatinine Urine Total Protein Fluid Total Protein Vancomycin Trough Rheumatoid Factor Complement C4 58 H Miscellaneous Test Crossmatch 09/07/16 09/07/16 09/07/16 11:50 16:00 17:31 WBC RBC Hgb Hct MCV MCH MCHC RDW Plt Count Lymph % (Auto) [place] % (Auto) Lymph # [place] # Baso # Seg Neutrophils % Seg Neuts % (Manual) Lymphocytes % (Manual) Monocytes % (Manual) Eosinophils % (Manual) Basophils % (Manual) Nucleated RBC % Seg Neutrophils # Seg Neutrophils # Man Lymphocytes # (Manual) Monocytes # (Manual) Eosinophils # (Manual) Basophils # (Manual) PT INR Fibrinogen dRVVT Confirm Interp Factor V Activity POC ABG pH POC ABG pCO2 POC ABG pO2 158 H ABG pO2 ABG HCO3 ABG Base Excess ABG Hemoglobin Oxyhemoglobin Sodium Potassium Chloride Carbon Dioxide BUN Creatinine Glucose POC Glucose 175 H Lactic Acid Calcium Phosphorus Magnesium Direct Bilirubin AST ALT Alkaline Phosphatase Lactate Dehydrogenase Troponin T C-Reactive Protein Total Protein Albumin Prealbumin Triglycerides Cholesterol LDL Cholesterol Direct HDL Cholesterol Urine pH Urine WBC (Auto) Urine Creatinine 66.3 H Urine Total Protein Fluid Total Protein Vancomycin Trough Rheumatoid Factor Complement C4 Miscellaneous Test Crossmatch 09/07/16 09/08/16 09/08/16 23:50 05:46 06:18 WBC 17.8 H RBC 3.58 L Hgb 8.1 L Hct 25.5 L MCV 71 L MCH 23 L MCHC RDW 18.4 H Plt Count Lymph % (Auto) [place] % (Auto) Lymph # [place] # Baso # Seg Neutrophils % Seg Neuts % (Manual) 92.0 H Lymphocytes % (Manual) 6.0 L Monocytes % (Manual) Eosinophils % (Manual) Basophils % (Manual) Nucleated RBC % Seg Neutrophils # Seg Neutrophils # Man 16.4 H Lymphocytes # (Manual) 1.1 L Monocytes # (Manual) Eosinophils # (Manual) Basophils # (Manual) PT INR Fibrinogen dRVVT Confirm Interp Factor V Activity POC ABG pH POC ABG pCO2 34.3 L POC ABG pO2 71 L ABG pO2 ABG HCO3 ABG Base Excess ABG Hemoglobin Oxyhemoglobin Sodium Potassium Chloride Carbon Dioxide BUN Creatinine Glucose POC Glucose 216 H Lactic Acid Calcium Phosphorus Magnesium Direct Bilirubin AST ALT Alkaline Phosphatase Lactate Dehydrogenase Troponin T C-Reactive Protein Total Protein Albumin Prealbumin Triglycerides Cholesterol LDL Cholesterol Direct HDL Cholesterol Urine pH Urine WBC (Auto) Urine Creatinine Urine Total Protein Fluid Total Protein Vancomycin Trough Rheumatoid Factor Complement C4 Miscellaneous Test Crossmatch 09/08/16 09/08/16 09/08/16 06:18 06:51 10:55 WBC RBC Hgb Hct MCV MCH MCHC RDW Plt Count Lymph % (Auto) [place] % (Auto) Lymph # [place] # Baso # Seg Neutrophils % Seg Neuts % (Manual) Lymphocytes % (Manual) Monocytes % (Manual) Eosinophils % (Manual) Basophils % (Manual) Nucleated RBC % Seg Neutrophils # Seg Neutrophils # Man Lymphocytes # (Manual) Monocytes # (Manual) Eosinophils # (Manual) Basophils # (Manual) PT INR Fibrinogen dRVVT Confirm Interp Factor V Activity POC ABG pH POC ABG pCO2 POC ABG pO2 ABG pO2 ABG HCO3 ABG Base Excess ABG Hemoglobin Oxyhemoglobin Sodium 133 L Potassium Chloride 96.9 L Carbon Dioxide 20 L BUN 63 H Creatinine 2.7 H Glucose 195 H POC Glucose 204 H 169 H Lactic Acid Calcium Phosphorus Magnesium Direct Bilirubin AST ALT Alkaline Phosphatase Lactate Dehydrogenase Troponin T C-Reactive Protein Total Protein Albumin Prealbumin Triglycerides Cholesterol LDL Cholesterol Direct HDL Cholesterol Urine pH Urine WBC (Auto) Urine Creatinine Urine Total Protein Fluid Total Protein Vancomycin Trough Rheumatoid Factor Complement C4 Miscellaneous Test Crossmatch 09/08/16 09/08/16 09/08/16 11:48 11:48 11:48 WBC RBC Hgb Hct MCV MCH MCHC RDW Plt Count Lymph % (Auto) [place] % (Auto) Lymph # [place] # Baso # Seg Neutrophils % Seg Neuts % (Manual) Lymphocytes % (Manual) Monocytes % (Manual) Eosinophils % (Manual) Basophils % (Manual) Nucleated RBC % Seg Neutrophils # Seg Neutrophils # Man Lymphocytes # (Manual) Monocytes # (Manual) Eosinophils # (Manual) Basophils # (Manual) PT INR Fibrinogen 750 H dRVVT Confirm Interp Factor V Activity POC ABG pH POC ABG pCO2 POC ABG pO2 ABG pO2 ABG HCO3 ABG Base Excess ABG Hemoglobin Oxyhemoglobin Sodium Potassium Chloride Carbon Dioxide BUN Creatinine Glucose POC Glucose Lactic Acid Calcium Phosphorus Magnesium Direct Bilirubin AST ALT Alkaline Phosphatase Lactate Dehydrogenase Troponin T C-Reactive Protein 15.70 H Total Protein Albumin Prealbumin Triglycerides Cholesterol LDL Cholesterol Direct HDL Cholesterol Urine pH Urine WBC (Auto) Urine Creatinine Urine Total Protein Fluid Total Protein Vancomycin Trough Rheumatoid Factor 24 H Complement C4 Miscellaneous Test Crossmatch 09/08/16 09/08/16 09/09/16 15:35 18:25 00:24 WBC RBC Hgb Hct MCV MCH MCHC RDW Plt Count Lymph % (Auto) [place] % (Auto) Lymph # [place] # Baso # Seg Neutrophils % Seg Neuts % (Manual) Lymphocytes % (Manual) Monocytes % (Manual) Eosinophils % (Manual) Basophils % (Manual) Nucleated RBC % Seg Neutrophils # Seg Neutrophils # Man Lymphocytes # (Manual) Monocytes # (Manual) Eosinophils # (Manual) Basophils # (Manual) PT INR Fibrinogen dRVVT Confirm Interp Factor V Activity 182 H POC ABG pH POC ABG pCO2 POC ABG pO2 ABG pO2 ABG HCO3 ABG Base Excess ABG Hemoglobin Oxyhemoglobin Sodium Potassium Chloride Carbon Dioxide BUN Creatinine Glucose POC Glucose 184 H 216 H Lactic Acid Calcium Phosphorus Magnesium Direct Bilirubin AST ALT Alkaline Phosphatase Lactate Dehydrogenase Troponin T C-Reactive Protein Total Protein Albumin Prealbumin Triglycerides Cholesterol LDL Cholesterol Direct HDL Cholesterol Urine pH Urine WBC (Auto) Urine Creatinine Urine Total Protein Fluid Total Protein Vancomycin Trough Rheumatoid Factor Complement C4 Miscellaneous Test Crossmatch 09/09/16 09/09/16 09/09/16 03:00 03:00 04:04 WBC 27.9 H RBC Hgb 8.7 L Hct 28.1 L MCV 72 L MCH 22 L MCHC RDW 18.4 H Plt Count 485 H Lymph % (Auto) [place] % (Auto) Lymph # [place] # Baso # Seg Neutrophils % Seg Neuts % (Manual) 77.0 H Lymphocytes % (Manual) 9.0 L Monocytes % (Manual) Eosinophils % (Manual) Basophils % (Manual) Nucleated RBC % Seg Neutrophils # Seg Neutrophils # Man 21.5 H Lymphocytes # (Manual) Monocytes # (Manual) 2.0 H Eosinophils # (Manual) Basophils # (Manual) PT INR Fibrinogen dRVVT Confirm Interp Factor V Activity POC ABG pH POC ABG pCO2 POC ABG pO2 121 H ABG pO2 ABG HCO3 ABG Base Excess ABG Hemoglobin Oxyhemoglobin Sodium 135 L Potassium Chloride 96.3 L Carbon Dioxide 21 L BUN 83 H Creatinine 3.0 H Glucose 135 H POC Glucose Lactic Acid Calcium Phosphorus Magnesium Direct Bilirubin AST ALT Alkaline Phosphatase Lactate Dehydrogenase Troponin T C-Reactive Protein Total Protein Albumin Prealbumin Triglycerides Cholesterol LDL Cholesterol Direct HDL Cholesterol Urine pH Urine WBC (Auto) Urine Creatinine Urine Total Protein Fluid Total Protein Vancomycin Trough Rheumatoid Factor Complement C4 Miscellaneous Test Crossmatch 09/09/16 09/09/16 09/09/16 05:41 11:55 14:13 WBC RBC Hgb Hct MCV MCH MCHC RDW Plt Count Lymph % (Auto) [place] % (Auto) Lymph # [place] # Baso # Seg Neutrophils % Seg Neuts % (Manual) Lymphocytes % (Manual) Monocytes % (Manual) Eosinophils % (Manual) Basophils % (Manual) Nucleated RBC % Seg Neutrophils # Seg Neutrophils # Man Lymphocytes # (Manual) Monocytes # (Manual) Eosinophils # (Manual) Basophils # (Manual) PT INR Fibrinogen dRVVT Confirm Interp Factor V Activity POC ABG pH POC ABG pCO2 POC ABG pO2 ABG pO2 ABG HCO3 ABG Base Excess ABG Hemoglobin Oxyhemoglobin Sodium Potassium Chloride Carbon Dioxide BUN Creatinine Glucose POC Glucose 155 H 186 H Lactic Acid Calcium Phosphorus Magnesium Direct Bilirubin AST ALT Alkaline Phosphatase Lactate Dehydrogenase Troponin T C-Reactive Protein Total Protein Albumin Prealbumin Triglycerides Cholesterol LDL Cholesterol Direct HDL Cholesterol Urine pH Urine WBC (Auto) 25.0 H Urine Creatinine Urine Total Protein Fluid Total Protein Vancomycin Trough Rheumatoid Factor Complement C4 Miscellaneous Test Crossmatch 09/09/16 09/09/16 09/10/16 17:33 23:13 05:09 WBC RBC Hgb Hct MCV MCH MCHC RDW Plt Count Lymph % (Auto) [place] % (Auto) Lymph # [place] # Baso # Seg Neutrophils % Seg Neuts % (Manual) Lymphocytes % (Manual) Monocytes % (Manual) Eosinophils % (Manual) Basophils % (Manual) Nucleated RBC % Seg Neutrophils # Seg Neutrophils # Man Lymphocytes # (Manual) Monocytes # (Manual) Eosinophils # (Manual) Basophils # (Manual) PT INR Fibrinogen dRVVT Confirm Interp Factor V Activity POC ABG pH POC ABG pCO2 POC ABG pO2 74 L ABG pO2 ABG HCO3 ABG Base Excess ABG Hemoglobin Oxyhemoglobin Sodium Potassium Chloride Carbon Dioxide BUN Creatinine Glucose POC Glucose 211 H 215 H Lactic Acid Calcium Phosphorus Magnesium Direct Bilirubin AST ALT Alkaline Phosphatase Lactate Dehydrogenase Troponin T C-Reactive Protein Total Protein Albumin Prealbumin Triglycerides Cholesterol LDL Cholesterol Direct HDL Cholesterol Urine pH Urine WBC (Auto) Urine Creatinine Urine Total Protein Fluid Total Protein Vancomycin Trough Rheumatoid Factor Complement C4 Miscellaneous Test Crossmatch 09/10/16 09/10/16 09/10/16 05:17 05:17 11:31 WBC 15.8 H RBC 3.25 L Hgb 7.3 L Hct 22.9 L MCV 71 L MCH 23 L MCHC RDW 18.4 H Plt Count Lymph % (Auto) [place] % (Auto) Lymph # [place] # Baso # Seg Neutrophils % Seg Neuts % (Manual) 91.0 H Lymphocytes % (Manual) 4.0 L Monocytes % (Manual) Eosinophils % (Manual) Basophils % (Manual) Nucleated RBC % Seg Neutrophils # Seg Neutrophils # Man 14.4 H Lymphocytes # (Manual) 0.6 L Monocytes # (Manual) Eosinophils # (Manual) Basophils # (Manual) PT INR Fibrinogen dRVVT Confirm Interp Factor V Activity POC ABG pH POC ABG pCO2 POC ABG pO2 ABG pO2 ABG HCO3 ABG Base Excess ABG Hemoglobin Oxyhemoglobin Sodium Potassium Chloride Carbon Dioxide 21 L BUN 93 H Creatinine 2.9 H Glucose 146 H POC Glucose 188 H Lactic Acid Calcium 8.1 L Phosphorus Magnesium Direct Bilirubin AST ALT Alkaline Phosphatase Lactate Dehydrogenase Troponin T C-Reactive Protein Total Protein Albumin Prealbumin Triglycerides Cholesterol LDL Cholesterol Direct HDL Cholesterol Urine pH Urine WBC (Auto) Urine Creatinine Urine Total Protein Fluid Total Protein Vancomycin Trough Rheumatoid Factor Complement C4 Miscellaneous Test Crossmatch 09/10/16 09/10/16 09/10/16 13:17 17:20 23:32 WBC RBC Hgb Hct MCV MCH MCHC RDW Plt Count Lymph % (Auto) [place] % (Auto) Lymph # [place] # Baso # Seg Neutrophils % Seg Neuts % (Manual) Lymphocytes % (Manual) Monocytes % (Manual) Eosinophils % (Manual) Basophils % (Manual) Nucleated RBC % Seg Neutrophils # Seg Neutrophils # Man Lymphocytes # (Manual) Monocytes # (Manual) Eosinophils # (Manual) Basophils # (Manual) PT INR Fibrinogen dRVVT Confirm Interp Factor V Activity POC ABG pH POC ABG pCO2 POC ABG pO2 ABG pO2 ABG HCO3 ABG Base Excess ABG Hemoglobin Oxyhemoglobin Sodium Potassium Chloride Carbon Dioxide BUN Creatinine Glucose POC Glucose 199 H 186 H Lactic Acid Calcium Phosphorus Magnesium Direct Bilirubin AST ALT Alkaline Phosphatase Lactate Dehydrogenase Troponin T C-Reactive Protein Total Protein Albumin Prealbumin Triglycerides Cholesterol LDL Cholesterol Direct HDL Cholesterol Urine pH Urine WBC (Auto) Urine Creatinine Urine Total Protein Fluid Total Protein Vancomycin Trough Rheumatoid Factor Complement C4 Miscellaneous Test Crossmatch See Detail 09/11/16 09/11/16 09/11/16 05:10 05:10 05:17 WBC 28.4 H RBC Hgb 9.2 L Hct 29.3 L D MCV 73 L MCH 23 L MCHC RDW 18.9 H Plt Count 452 H Lymph % (Auto) [place] % (Auto) Lymph # [place] # Baso # Seg Neutrophils % Seg Neuts % (Manual) 89.5 H Lymphocytes % (Manual) 2.0 L Monocytes % (Manual) Eosinophils % (Manual) Basophils % (Manual) Nucleated RBC % Seg Neutrophils # Seg Neutrophils # Man 25.4 H Lymphocytes # (Manual) 0.6 L Monocytes # (Manual) 1.3 H Eosinophils # (Manual) Basophils # (Manual) PT INR Fibrinogen dRVVT Confirm Interp Factor V Activity POC ABG pH POC ABG pCO2 POC ABG pO2 ABG pO2 ABG HCO3 ABG Base Excess ABG Hemoglobin Oxyhemoglobin Sodium 136 L Potassium Chloride Carbon Dioxide 18 L BUN 107 H Creatinine 2.6 H Glucose 187 H POC Glucose 230 H Lactic Acid Calcium 8.3 L Phosphorus Magnesium Direct Bilirubin AST ALT Alkaline Phosphatase Lactate Dehydrogenase Troponin T C-Reactive Protein Total Protein Albumin Prealbumin Triglycerides Cholesterol LDL Cholesterol Direct HDL Cholesterol Urine pH Urine WBC (Auto) Urine Creatinine Urine Total Protein Fluid Total Protein Vancomycin Trough Rheumatoid Factor Complement C4 Miscellaneous Test Crossmatch 09/11/16 09/11/16 09/11/16 05:55 12:02 17:32 WBC RBC Hgb Hct MCV MCH MCHC RDW Plt Count Lymph % (Auto) [place] % (Auto) Lymph # [place] # Baso # Seg Neutrophils % Seg Neuts % (Manual) Lymphocytes % (Manual) Monocytes % (Manual) Eosinophils % (Manual) Basophils % (Manual) Nucleated RBC % Seg Neutrophils # Seg Neutrophils # Man Lymphocytes # (Manual) Monocytes # (Manual) Eosinophils # (Manual) Basophils # (Manual) PT INR Fibrinogen dRVVT Confirm Interp Factor V Activity POC ABG pH POC ABG pCO2 33.8 L POC ABG pO2 ABG pO2 ABG HCO3 ABG Base Excess ABG Hemoglobin Oxyhemoglobin Sodium Potassium Chloride Carbon Dioxide BUN Creatinine Glucose POC Glucose 191 H 239 H Lactic Acid Calcium Phosphorus Magnesium Direct Bilirubin AST ALT Alkaline Phosphatase Lactate Dehydrogenase Troponin T C-Reactive Protein Total Protein Albumin Prealbumin Triglycerides Cholesterol LDL Cholesterol Direct HDL Cholesterol Urine pH Urine WBC (Auto) Urine Creatinine Urine Total Protein Fluid Total Protein Vancomycin Trough Rheumatoid Factor Complement C4 Miscellaneous Test Crossmatch 09/11/16 09/12/16 09/12/16 23:52 05:09 05:32 WBC RBC Hgb Hct MCV MCH MCHC RDW Plt Count Lymph % (Auto) [place] % (Auto) Lymph # [place] # Baso # Seg Neutrophils % Seg Neuts % (Manual) Lymphocytes % (Manual) Monocytes % (Manual) Eosinophils % (Manual) Basophils % (Manual) Nucleated RBC % Seg Neutrophils # Seg Neutrophils # Man Lymphocytes # (Manual) Monocytes # (Manual) Eosinophils # (Manual) Basophils # (Manual) PT INR Fibrinogen dRVVT Confirm Interp Factor V Activity POC ABG pH POC ABG pCO2 34.6 L POC ABG pO2 ABG pO2 ABG HCO3 ABG Base Excess ABG Hemoglobin Oxyhemoglobin Sodium Potassium Chloride Carbon Dioxide BUN Creatinine Glucose POC Glucose 265 H 184 H Lactic Acid Calcium Phosphorus Magnesium Direct Bilirubin AST ALT Alkaline Phosphatase Lactate Dehydrogenase Troponin T C-Reactive Protein Total Protein Albumin Prealbumin Triglycerides Cholesterol LDL Cholesterol Direct HDL Cholesterol Urine pH Urine WBC (Auto) Urine Creatinine Urine Total Protein Fluid Total Protein Vancomycin Trough Rheumatoid Factor Complement C4 Miscellaneous Test Crossmatch 09/12/16 09/12/16 09/12/16 06:45 06:45 07:22 WBC 31.7 H RBC 3.54 L Hgb 8.3 L Hct 25.9 L MCV 73 L MCH 23 L MCHC RDW 18.9 H Plt Count Lymph % (Auto) [place] % (Auto) Lymph # [place] # Baso # Seg Neutrophils % Seg Neuts % (Manual) 88.5 H Lymphocytes % (Manual) 4.5 L Monocytes % (Manual) Eosinophils % (Manual) Basophils % (Manual) Nucleated RBC % Seg Neutrophils # Seg Neutrophils # Man 28.1 H Lymphocytes # (Manual) Monocytes # (Manual) 1.0 H Eosinophils # (Manual) Basophils # (Manual) PT INR Fibrinogen dRVVT Confirm Interp Factor V Activity POC ABG pH POC ABG pCO2 POC ABG pO2 ABG pO2 ABG HCO3 ABG Base Excess ABG Hemoglobin Oxyhemoglobin Sodium Potassium Chloride Carbon Dioxide 20 L BUN 115 H Creatinine 2.7 H Glucose 165 H POC Glucose Lactic Acid Calcium 8.0 L Phosphorus Magnesium Direct Bilirubin AST ALT Alkaline Phosphatase Lactate Dehydrogenase Troponin T C-Reactive Protein Total Protein Albumin Prealbumin Triglycerides 217 H Cholesterol LDL Cholesterol Direct HDL Cholesterol Urine pH Urine WBC (Auto) Urine Creatinine Urine Total Protein Fluid Total Protein Vancomycin Trough Rheumatoid Factor Complement C4 Miscellaneous Test Crossmatch 09/12/16 09/12/16 09/12/16 07:22 09:59 12:21 WBC RBC Hgb Hct MCV MCH MCHC RDW Plt Count Lymph % (Auto) [place] % (Auto) Lymph # [place] # Baso # Seg Neutrophils % Seg Neuts % (Manual) Lymphocytes % (Manual) Monocytes % (Manual) Eosinophils % (Manual) Basophils % (Manual) Nucleated RBC % Seg Neutrophils # Seg Neutrophils # Man Lymphocytes # (Manual) Monocytes # (Manual) Eosinophils # (Manual) Basophils # (Manual) PT INR Fibrinogen dRVVT Confirm Interp Positive H Factor V Activity POC ABG pH POC ABG pCO2 POC ABG pO2 ABG pO2 ABG HCO3 ABG Base Excess ABG Hemoglobin Oxyhemoglobin Sodium Potassium Chloride Carbon Dioxide BUN Creatinine Glucose POC Glucose 224 H Lactic Acid Calcium Phosphorus Magnesium Direct Bilirubin AST ALT Alkaline Phosphatase Lactate Dehydrogenase Troponin T C-Reactive Protein 1.70 H Total Protein Albumin Prealbumin Triglycerides Cholesterol LDL Cholesterol Direct HDL Cholesterol Urine pH Urine WBC (Auto) Urine Creatinine Urine Total Protein Fluid Total Protein Vancomycin Trough Rheumatoid Factor Complement C4 Miscellaneous Test Crossmatch 09/12/16 09/12/16 09/13/16 16:51 23:28 04:00 WBC 45.0 H* RBC Hgb 9.4 L Hct MCV 75 L MCH 23 L MCHC RDW 19.0 H Plt Count 470 H Lymph % (Auto) [place] % (Auto) Lymph # [place] # Baso # Seg Neutrophils % Seg Neuts % (Manual) 89.0 H Lymphocytes % (Manual) 5.0 L Monocytes % (Manual) Eosinophils % (Manual) Basophils % (Manual) Nucleated RBC % Seg Neutrophils # Seg Neutrophils # Man 40.1 H Lymphocytes # (Manual) Monocytes # (Manual) Eosinophils # (Manual) Basophils # (Manual) PT INR Fibrinogen dRVVT Confirm Interp Factor V Activity POC ABG pH POC ABG pCO2 POC ABG pO2 ABG pO2 ABG HCO3 ABG Base Excess ABG Hemoglobin Oxyhemoglobin Sodium Potassium Chloride Carbon Dioxide BUN Creatinine Glucose POC Glucose 169 H 150 H Lactic Acid Calcium Phosphorus Magnesium Direct Bilirubin AST ALT Alkaline Phosphatase Lactate Dehydrogenase Troponin T C-Reactive Protein Total Protein Albumin Prealbumin Triglycerides Cholesterol LDL Cholesterol Direct HDL Cholesterol Urine pH Urine WBC (Auto) Urine Creatinine Urine Total Protein Fluid Total Protein Vancomycin Trough Rheumatoid Factor Complement C4 Miscellaneous Test Crossmatch 09/13/16 09/13/16 09/13/16 04:00 11:26 17:31 WBC RBC Hgb Hct MCV MCH MCHC RDW Plt Count Lymph % (Auto) [place] % (Auto) Lymph # [place] # Baso # Seg Neutrophils % Seg Neuts % (Manual) Lymphocytes % (Manual) Monocytes % (Manual) Eosinophils % (Manual) Basophils % (Manual) Nucleated RBC % Seg Neutrophils # Seg Neutrophils # Man Lymphocytes # (Manual) Monocytes # (Manual) Eosinophils # (Manual) Basophils # (Manual) PT INR Fibrinogen dRVVT Confirm Interp Factor V Activity POC ABG pH POC ABG pCO2 POC ABG pO2 ABG pO2 ABG HCO3 ABG Base Excess ABG Hemoglobin Oxyhemoglobin Sodium Potassium Chloride Carbon Dioxide 20 L BUN 116 H Creatinine 3.0 H Glucose 172 H POC Glucose 140 H 183 H Lactic Acid Calcium Phosphorus Magnesium Direct Bilirubin AST ALT Alkaline Phosphatase Lactate Dehydrogenase Troponin T C-Reactive Protein Total Protein 6.2 L Albumin 2.9 L Prealbumin Triglycerides Cholesterol LDL Cholesterol Direct HDL Cholesterol Urine pH Urine WBC (Auto) Urine Creatinine Urine Total Protein Fluid Total Protein Vancomycin Trough Rheumatoid Factor Complement C4 Miscellaneous Test Crossmatch 09/13/16 09/14/16 09/14/16 23:23 04:06 04:07 WBC 29.4 H RBC Hgb 8.9 L Hct 27.3 L MCV 75 L MCH 24 L MCHC RDW 19.1 H Plt Count Lymph % (Auto) [place] % (Auto) Lymph # [place] # Baso # Seg Neutrophils % Seg Neuts % (Manual) 84.0 H Lymphocytes % (Manual) 6.0 L Monocytes % (Manual) 9.0 H Eosinophils % (Manual) Basophils % (Manual) Nucleated RBC % Seg Neutrophils # Seg Neutrophils # Man 24.7 H Lymphocytes # (Manual) Monocytes # (Manual) 2.6 H Eosinophils # (Manual) Basophils # (Manual) PT INR Fibrinogen dRVVT Confirm Interp Factor V Activity POC ABG pH 7.342 L POC ABG pCO2 POC ABG pO2 116 H ABG pO2 ABG HCO3 ABG Base Excess ABG Hemoglobin Oxyhemoglobin Sodium Potassium Chloride Carbon Dioxide BUN Creatinine Glucose POC Glucose 154 H Lactic Acid Calcium Phosphorus Magnesium Direct Bilirubin AST ALT Alkaline Phosphatase Lactate Dehydrogenase Troponin T C-Reactive Protein Total Protein Albumin Prealbumin Triglycerides Cholesterol LDL Cholesterol Direct HDL Cholesterol Urine pH Urine WBC (Auto) Urine Creatinine Urine Total Protein Fluid Total Protein Vancomycin Trough Rheumatoid Factor Complement C4 Miscellaneous Test Crossmatch 09/14/16 09/14/16 09/14/16 04:07 05:29 12:19 WBC RBC Hgb Hct MCV MCH MCHC RDW Plt Count Lymph % (Auto) [place] % (Auto) Lymph # [place] # Baso # Seg Neutrophils % Seg Neuts % (Manual) Lymphocytes % (Manual) Monocytes % (Manual) Eosinophils % (Manual) Basophils % (Manual) Nucleated RBC % Seg Neutrophils # Seg Neutrophils # Man Lymphocytes # (Manual) Monocytes # (Manual) Eosinophils # (Manual) Basophils # (Manual) PT INR Fibrinogen dRVVT Confirm Interp Factor V Activity POC ABG pH POC ABG pCO2 POC ABG pO2 ABG pO2 ABG HCO3 ABG Base Excess ABG Hemoglobin Oxyhemoglobin Sodium 136 L Potassium Chloride Carbon Dioxide 18 L BUN 121 H Creatinine 2.8 H Glucose 214 H POC Glucose 239 H 181 H Lactic Acid Calcium Phosphorus Magnesium Direct Bilirubin AST ALT Alkaline Phosphatase Lactate Dehydrogenase Troponin T C-Reactive Protein Total Protein Albumin Prealbumin Triglycerides Cholesterol LDL Cholesterol Direct HDL Cholesterol Urine pH Urine WBC (Auto) Urine Creatinine Urine Total Protein Fluid Total Protein Vancomycin Trough Rheumatoid Factor Complement C4 Miscellaneous Test Crossmatch 09/14/16 09/14/16 09/15/16 18:12 23:37 05:00 WBC 26.1 H RBC 3.05 L Hgb 7.2 L Hct 22.9 L MCV 75 L MCH 24 L MCHC RDW 19.0 H Plt Count Lymph % (Auto) [place] % (Auto) Lymph # [place] # Baso # Seg Neutrophils % Seg Neuts % (Manual) Lymphocytes % (Manual) Monocytes % (Manual) Eosinophils % (Manual) Basophils % (Manual) Nucleated RBC % Seg Neutrophils # Seg Neutrophils # Man Lymphocytes # (Manual) Monocytes # (Manual) Eosinophils # (Manual) Basophils # (Manual) PT INR Fibrinogen dRVVT Confirm Interp Factor V Activity POC ABG pH POC ABG pCO2 POC ABG pO2 ABG pO2 ABG HCO3 ABG Base Excess ABG Hemoglobin Oxyhemoglobin Sodium Potassium Chloride Carbon Dioxide BUN Creatinine Glucose POC Glucose 266 H 154 H Lactic Acid Calcium Phosphorus Magnesium Direct Bilirubin AST ALT Alkaline Phosphatase Lactate Dehydrogenase Troponin T C-Reactive Protein Total Protein Albumin Prealbumin Triglycerides Cholesterol LDL Cholesterol Direct HDL Cholesterol Urine pH Urine WBC (Auto) Urine Creatinine Urine Total Protein Fluid Total Protein Vancomycin Trough Rheumatoid Factor Complement C4 Miscellaneous Test Crossmatch 09/15/16 09/15/16 09/15/16 05:00 05:17 12:45 WBC RBC Hgb Hct MCV MCH MCHC RDW Plt Count Lymph % (Auto) [place] % (Auto) Lymph # [place] # Baso # Seg Neutrophils % Seg Neuts % (Manual) Lymphocytes % (Manual) Monocytes % (Manual) Eosinophils % (Manual) Basophils % (Manual) Nucleated RBC % Seg Neutrophils # Seg Neutrophils # Man Lymphocytes # (Manual) Monocytes # (Manual) Eosinophils # (Manual) Basophils # (Manual) PT INR Fibrinogen dRVVT Confirm Interp Factor V Activity POC ABG pH POC ABG pCO2 POC ABG pO2 ABG pO2 ABG HCO3 ABG Base Excess ABG Hemoglobin Oxyhemoglobin Sodium Potassium 5.2 H Chloride Carbon Dioxide 18 L BUN 139 H Creatinine 3.7 H Glucose 227 H POC Glucose 226 H 244 H Lactic Acid Calcium 8.3 L Phosphorus Magnesium Direct Bilirubin AST ALT Alkaline Phosphatase Lactate Dehydrogenase Troponin T C-Reactive Protein Total Protein Albumin Prealbumin Triglycerides Cholesterol LDL Cholesterol Direct HDL Cholesterol Urine pH Urine WBC (Auto) Urine Creatinine Urine Total Protein Fluid Total Protein Vancomycin Trough Rheumatoid Factor Complement C4 Miscellaneous Test Crossmatch 09/15/16 09/15/16 09/15/16 14:32 17:33 23:35 WBC RBC Hgb Hct MCV MCH MCHC RDW Plt Count Lymph % (Auto) [place] % (Auto) Lymph # [place] # Baso # Seg Neutrophils % Seg Neuts % (Manual) Lymphocytes % (Manual) Monocytes % (Manual) Eosinophils % (Manual) Basophils % (Manual) Nucleated RBC % Seg Neutrophils # Seg Neutrophils # Man Lymphocytes # (Manual) Monocytes # (Manual) Eosinophils # (Manual) Basophils # (Manual) PT INR Fibrinogen dRVVT Confirm Interp Factor V Activity POC ABG pH POC ABG pCO2 27.7 L POC ABG pO2 120 H ABG pO2 ABG HCO3 ABG Base Excess ABG Hemoglobin Oxyhemoglobin Sodium Potassium Chloride Carbon Dioxide BUN Creatinine Glucose POC Glucose 232 H 167 H Lactic Acid Calcium Phosphorus Magnesium Direct Bilirubin AST ALT Alkaline Phosphatase Lactate Dehydrogenase Troponin T C-Reactive Protein Total Protein Albumin Prealbumin Triglycerides Cholesterol LDL Cholesterol Direct HDL Cholesterol Urine pH Urine WBC (Auto) Urine Creatinine Urine Total Protein Fluid Total Protein Vancomycin Trough Rheumatoid Factor Complement C4 Miscellaneous Test Crossmatch 09/16/16 09/16/16 09/16/16 03:58 10:27 10:27 WBC 19.0 H RBC 2.77 L Hgb 6.5 L Hct 20.9 L MCV 76 L MCH 23 L MCHC RDW 19.3 H Plt Count Lymph % (Auto) 11.0 L [place] % (Auto) Lymph # [place] # 1.1 H Baso # Seg Neutrophils % 82.5 H Seg Neuts % (Manual) Lymphocytes % (Manual) Monocytes % (Manual) Eosinophils % (Manual) Basophils % (Manual) Nucleated RBC % Seg Neutrophils # 15.7 H Seg Neutrophils # Man Lymphocytes # (Manual) Monocytes # (Manual) Eosinophils # (Manual) Basophils # (Manual) PT INR Fibrinogen dRVVT Confirm Interp Factor V Activity POC ABG pH POC ABG pCO2 POC ABG pO2 ABG pO2 ABG HCO3 ABG Base Excess ABG Hemoglobin Oxyhemoglobin Sodium Potassium Chloride 109.3 H Carbon Dioxide 18 L BUN 139 H Creatinine 4.1 H Glucose 144 H POC Glucose 146 H Lactic Acid Calcium 8.1 L Phosphorus Magnesium Direct Bilirubin AST ALT Alkaline Phosphatase Lactate Dehydrogenase Troponin T C-Reactive Protein Total Protein Albumin Prealbumin Triglycerides Cholesterol LDL Cholesterol Direct HDL Cholesterol Urine pH Urine WBC (Auto) Urine Creatinine Urine Total Protein Fluid Total Protein Vancomycin Trough Rheumatoid Factor Complement C4 Miscellaneous Test Crossmatch 09/16/16 09/16/16 09/16/16 12:04 12:10 13:55 WBC RBC Hgb Hct MCV MCH MCHC RDW Plt Count Lymph % (Auto) [place] % (Auto) Lymph # [place] # Baso # Seg Neutrophils % Seg Neuts % (Manual) Lymphocytes % (Manual) Monocytes % (Manual) Eosinophils % (Manual) Basophils % (Manual) Nucleated RBC % Seg Neutrophils # Seg Neutrophils # Man Lymphocytes # (Manual) Monocytes # (Manual) Eosinophils # (Manual) Basophils # (Manual) PT INR Fibrinogen dRVVT Confirm Interp Factor V Activity POC ABG pH POC ABG pCO2 32.9 L POC ABG pO2 ABG pO2 ABG HCO3 ABG Base Excess ABG Hemoglobin Oxyhemoglobin Sodium Potassium Chloride Carbon Dioxide BUN Creatinine Glucose POC Glucose 185 H Lactic Acid Calcium Phosphorus Magnesium Direct Bilirubin AST ALT Alkaline Phosphatase Lactate Dehydrogenase Troponin T C-Reactive Protein Total Protein Albumin Prealbumin Triglycerides Cholesterol LDL Cholesterol Direct HDL Cholesterol Urine pH Urine WBC (Auto) Urine Creatinine Urine Total Protein Fluid Total Protein Vancomycin Trough Rheumatoid Factor Complement C4 Miscellaneous Test Crossmatch See Detail 09/16/16 09/16/16 09/16/16 17:55 19:19 23:48 WBC RBC Hgb Hct MCV MCH MCHC RDW Plt Count Lymph % (Auto) [place] % (Auto) Lymph # [place] # Baso # Seg Neutrophils % Seg Neuts % (Manual) Lymphocytes % (Manual) Monocytes % (Manual) Eosinophils % (Manual) Basophils % (Manual) Nucleated RBC % Seg Neutrophils # Seg Neutrophils # Man Lymphocytes # (Manual) Monocytes # (Manual) Eosinophils # (Manual) Basophils # (Manual) PT INR Fibrinogen dRVVT Confirm Interp Factor V Activity POC ABG pH POC ABG pCO2 POC ABG pO2 ABG pO2 ABG HCO3 ABG Base Excess ABG Hemoglobin Oxyhemoglobin Sodium Potassium Chloride Carbon Dioxide BUN Creatinine Glucose POC Glucose 222 H 107 H Lactic Acid Calcium Phosphorus Magnesium Direct Bilirubin AST ALT Alkaline Phosphatase Lactate Dehydrogenase Troponin T C-Reactive Protein Total Protein Albumin Prealbumin Triglycerides Cholesterol LDL Cholesterol Direct HDL Cholesterol Urine pH Urine WBC (Auto) Urine Creatinine 47.4 H Urine Total Protein 16 H Fluid Total Protein Vancomycin Trough Rheumatoid Factor Complement C4 Miscellaneous Test Crossmatch 09/17/16 09/17/16 09/17/16 03:45 03:45 04:55 WBC 19.6 H RBC 3.41 L Hgb 8.5 L Hct 26.7 L MCV 78 L MCH 25 L MCHC RDW 19.9 H Plt Count Lymph % (Auto) 9.3 L [place] % (Auto) Lymph # [place] # 1.2 H Baso # Seg Neutrophils % 83.9 H Seg Neuts % (Manual) Lymphocytes % (Manual) Monocytes % (Manual) Eosinophils % (Manual) Basophils % (Manual) Nucleated RBC % Seg Neutrophils # 16.4 H Seg Neutrophils # Man Lymphocytes # (Manual) Monocytes # (Manual) Eosinophils # (Manual) Basophils # (Manual) PT INR Fibrinogen dRVVT Confirm Interp Factor V Activity POC ABG pH POC ABG pCO2 POC ABG pO2 ABG pO2 ABG HCO3 ABG Base Excess ABG Hemoglobin Oxyhemoglobin Sodium 146 H Potassium 5.1 H Chloride 110.9 H Carbon Dioxide 16 L BUN 146 H Creatinine 4.0 H Glucose 108 H POC Glucose 133 H Lactic Acid Calcium Phosphorus Magnesium 3.00 H Direct Bilirubin AST ALT Alkaline Phosphatase Lactate Dehydrogenase Troponin T C-Reactive Protein Total Protein Albumin Prealbumin Triglycerides Cholesterol LDL Cholesterol Direct HDL Cholesterol Urine pH Urine WBC (Auto) Urine Creatinine Urine Total Protein Fluid Total Protein Vancomycin Trough Rheumatoid Factor Complement C4 Miscellaneous Test Crossmatch 09/17/16 09/17/16 09/17/16 11:15 17:33 23:47 WBC RBC Hgb Hct MCV MCH MCHC RDW Plt Count Lymph % (Auto) [place] % (Auto) Lymph # [place] # Baso # Seg Neutrophils % Seg Neuts % (Manual) Lymphocytes % (Manual) Monocytes % (Manual) Eosinophils % (Manual) Basophils % (Manual) Nucleated RBC % Seg Neutrophils # Seg Neutrophils # Man Lymphocytes # (Manual) Monocytes # (Manual) Eosinophils # (Manual) Basophils # (Manual) PT INR Fibrinogen dRVVT Confirm Interp Factor V Activity POC ABG pH POC ABG pCO2 POC ABG pO2 ABG pO2 ABG HCO3 ABG Base Excess ABG Hemoglobin Oxyhemoglobin Sodium Potassium Chloride Carbon Dioxide BUN Creatinine Glucose POC Glucose 176 H 246 H 148 H Lactic Acid Calcium Phosphorus Magnesium Direct Bilirubin AST ALT Alkaline Phosphatase Lactate Dehydrogenase Troponin T C-Reactive Protein Total Protein Albumin Prealbumin Triglycerides Cholesterol LDL Cholesterol Direct HDL Cholesterol Urine pH Urine WBC (Auto) Urine Creatinine Urine Total Protein Fluid Total Protein Vancomycin Trough Rheumatoid Factor Complement C4 Miscellaneous Test Crossmatch 09/18/16 09/18/16 09/18/16 05:33 08:31 08:31 WBC 18.0 H RBC 3.17 L Hgb 9.0 L Hct 25.7 L MCV MCH MCHC 35 H RDW 20.4 H Plt Count Lymph % (Auto) [place] % (Auto) Lymph # [place] # Baso # Seg Neutrophils % Seg Neuts % (Manual) Lymphocytes % (Manual) Monocytes % (Manual) Eosinophils % (Manual) Basophils % (Manual) Nucleated RBC % Seg Neutrophils # Seg Neutrophils # Man Lymphocytes # (Manual) Monocytes # (Manual) Eosinophils # (Manual) Basophils # (Manual) PT INR Fibrinogen dRVVT Confirm Interp Factor V Activity POC ABG pH POC ABG pCO2 POC ABG pO2 ABG pO2 ABG HCO3 ABG Base Excess ABG Hemoglobin Oxyhemoglobin Sodium Potassium Chloride Carbon Dioxide 15 L BUN 124 H Creatinine 3.8 H Glucose POC Glucose 120 H Lactic Acid Calcium 8.1 L Phosphorus Magnesium Direct Bilirubin AST ALT Alkaline Phosphatase Lactate Dehydrogenase Troponin T C-Reactive Protein Total Protein Albumin Prealbumin Triglycerides Cholesterol LDL Cholesterol Direct HDL Cholesterol Urine pH Urine WBC (Auto) Urine Creatinine Urine Total Protein Fluid Total Protein Vancomycin Trough Rheumatoid Factor Complement C4 Miscellaneous Test Crossmatch 09/18/16 09/18/16 09/18/16 12:03 15:34 17:50 WBC RBC Hgb Hct MCV MCH MCHC RDW Plt Count Lymph % (Auto) [place] % (Auto) Lymph # [place] # Baso # Seg Neutrophils % Seg Neuts % (Manual) Lymphocytes % (Manual) Monocytes % (Manual) Eosinophils % (Manual) Basophils % (Manual) Nucleated RBC % Seg Neutrophils # Seg Neutrophils # Man Lymphocytes # (Manual) Monocytes # (Manual) Eosinophils # (Manual) Basophils # (Manual) PT INR Fibrinogen dRVVT Confirm Interp Factor V Activity POC ABG pH POC ABG pCO2 25.7 L POC ABG pO2 66 L ABG pO2 ABG HCO3 ABG Base Excess ABG Hemoglobin Oxyhemoglobin Sodium Potassium Chloride Carbon Dioxide BUN Creatinine Glucose POC Glucose 156 H 220 H Lactic Acid Calcium Phosphorus Magnesium Direct Bilirubin AST ALT Alkaline Phosphatase Lactate Dehydrogenase Troponin T C-Reactive Protein Total Protein Albumin Prealbumin Triglycerides Cholesterol LDL Cholesterol Direct HDL Cholesterol Urine pH Urine WBC (Auto) Urine Creatinine Urine Total Protein Fluid Total Protein Vancomycin Trough Rheumatoid Factor Complement C4 Miscellaneous Test Crossmatch 09/19/16 09/19/16 09/19/16 06:21 09:50 09:50 WBC 17.1 H RBC 3.49 L Hgb 9.0 L Hct 28.1 L MCV MCH 26 L MCHC RDW 20.8 H Plt Count Lymph % (Auto) 11.5 L [place] % (Auto) 7.5 H Lymph # [place] # 1.3 H Baso # Seg Neutrophils % 79.8 H Seg Neuts % (Manual) Lymphocytes % (Manual) Monocytes % (Manual) Eosinophils % (Manual) Basophils % (Manual) Nucleated RBC % Seg Neutrophils # 13.7 H Seg Neutrophils # Man Lymphocytes # (Manual) Monocytes # (Manual) Eosinophils # (Manual) Basophils # (Manual) PT INR Fibrinogen dRVVT Confirm Interp Factor V Activity POC ABG pH POC ABG pCO2 POC ABG pO2 ABG pO2 ABG HCO3 ABG Base Excess ABG Hemoglobin Oxyhemoglobin Sodium Potassium Chloride 108.6 H Carbon Dioxide 15 L BUN 125 H Creatinine 4.1 H Glucose 124 H POC Glucose 119 H Lactic Acid Calcium Phosphorus Magnesium Direct Bilirubin AST ALT Alkaline Phosphatase Lactate Dehydrogenase Troponin T C-Reactive Protein Total Protein Albumin Prealbumin Triglycerides Cholesterol LDL Cholesterol Direct HDL Cholesterol Urine pH Urine WBC (Auto) Urine Creatinine Urine Total Protein Fluid Total Protein Vancomycin Trough Rheumatoid Factor Complement C4 Miscellaneous Test Crossmatch 09/19/16 09/19/16 09/19/16 11:25 17:53 23:36 WBC RBC Hgb Hct MCV MCH MCHC RDW Plt Count Lymph % (Auto) [place] % (Auto) Lymph # [place] # Baso # Seg Neutrophils % Seg Neuts % (Manual) Lymphocytes % (Manual) Monocytes % (Manual) Eosinophils % (Manual) Basophils % (Manual) Nucleated RBC % Seg Neutrophils # Seg Neutrophils # Man Lymphocytes # (Manual) Monocytes # (Manual) Eosinophils # (Manual) Basophils # (Manual) PT INR Fibrinogen dRVVT Confirm Interp Factor V Activity POC ABG pH POC ABG pCO2 POC ABG pO2 ABG pO2 ABG HCO3 ABG Base Excess ABG Hemoglobin Oxyhemoglobin Sodium Potassium Chloride Carbon Dioxide BUN Creatinine Glucose POC Glucose 160 H 245 H 121 H Lactic Acid Calcium Phosphorus Magnesium Direct Bilirubin AST ALT Alkaline Phosphatase Lactate Dehydrogenase Troponin T C-Reactive Protein Total Protein Albumin Prealbumin Triglycerides Cholesterol LDL Cholesterol Direct HDL Cholesterol Urine pH Urine WBC (Auto) Urine Creatinine Urine Total Protein Fluid Total Protein Vancomycin Trough Rheumatoid Factor Complement C4 Miscellaneous Test Crossmatch 09/20/16 09/20/16 09/20/16 04:10 04:10 04:10 WBC 17.0 H RBC 3.21 L Hgb 8.2 L Hct 25.5 L MCV MCH 26 L MCHC RDW 20.9 H Plt Count Lymph % (Auto) [place] % (Auto) Lymph # [place] # Baso # Seg Neutrophils % Seg Neuts % (Manual) Lymphocytes % (Manual) Monocytes % (Manual) Eosinophils % (Manual) Basophils % (Manual) Nucleated RBC % Seg Neutrophils # Seg Neutrophils # Man Lymphocytes # (Manual) Monocytes # (Manual) Eosinophils # (Manual) Basophils # (Manual) PT INR Fibrinogen dRVVT Confirm Interp Factor V Activity POC ABG pH POC ABG pCO2 POC ABG pO2 ABG pO2 ABG HCO3 ABG Base Excess ABG Hemoglobin Oxyhemoglobin Sodium Potassium Chloride 111.0 H Carbon Dioxide 16 L BUN 129 H Creatinine 3.7 H Glucose 115 H POC Glucose Lactic Acid Calcium 8.2 L Phosphorus Magnesium Direct Bilirubin AST ALT Alkaline Phosphatase Lactate Dehydrogenase Troponin T C-Reactive Protein Total Protein Albumin Prealbumin Triglycerides 243 H Cholesterol LDL Cholesterol Direct HDL Cholesterol Urine pH Urine WBC (Auto) Urine Creatinine Urine Total Protein Fluid Total Protein Vancomycin Trough Rheumatoid Factor Complement C4 Miscellaneous Test Crossmatch 09/20/16 09/20/16 09/20/16 05:40 11:52 16:50 WBC RBC Hgb Hct MCV MCH MCHC RDW Plt Count Lymph % (Auto) [place] % (Auto) Lymph # [place] # Baso # Seg Neutrophils % Seg Neuts % (Manual) Lymphocytes % (Manual) Monocytes % (Manual) Eosinophils % (Manual) Basophils % (Manual) Nucleated RBC % Seg Neutrophils # Seg Neutrophils # Man Lymphocytes # (Manual) Monocytes # (Manual) Eosinophils # (Manual) Basophils # (Manual) PT INR Fibrinogen dRVVT Confirm Interp Factor V Activity POC ABG pH POC ABG pCO2 POC ABG pO2 ABG pO2 ABG HCO3 ABG Base Excess ABG Hemoglobin Oxyhemoglobin Sodium Potassium Chloride Carbon Dioxide BUN Creatinine Glucose POC Glucose 131 H 183 H 236 H Lactic Acid Calcium Phosphorus Magnesium Direct Bilirubin AST ALT Alkaline Phosphatase Lactate Dehydrogenase Troponin T C-Reactive Protein Total Protein Albumin Prealbumin Triglycerides Cholesterol LDL Cholesterol Direct HDL Cholesterol Urine pH Urine WBC (Auto) Urine Creatinine Urine Total Protein Fluid Total Protein Vancomycin Trough Rheumatoid Factor Complement C4 Miscellaneous Test Crossmatch 09/20/16 09/21/16 09/21/16 23:51 03:30 04:44 WBC RBC Hgb Hct MCV MCH MCHC RDW Plt Count Lymph % (Auto) [place] % (Auto) Lymph # [place] # Baso # Seg Neutrophils % Seg Neuts % (Manual) Lymphocytes % (Manual) Monocytes % (Manual) Eosinophils % (Manual) Basophils % (Manual) Nucleated RBC % Seg Neutrophils # Seg Neutrophils # Man Lymphocytes # (Manual) Monocytes # (Manual) Eosinophils # (Manual) Basophils # (Manual) PT INR Fibrinogen dRVVT Confirm Interp Factor V Activity POC ABG pH POC ABG pCO2 POC ABG pO2 ABG pO2 ABG HCO3 ABG Base Excess ABG Hemoglobin Oxyhemoglobin Sodium Potassium Chloride Carbon Dioxide BUN Creatinine Glucose POC Glucose 114 H 141 H Lactic Acid Calcium Phosphorus Magnesium 2.70 H Direct Bilirubin AST ALT Alkaline Phosphatase Lactate Dehydrogenase Troponin T C-Reactive Protein Total Protein Albumin Prealbumin Triglycerides Cholesterol LDL Cholesterol Direct HDL Cholesterol Urine pH Urine WBC (Auto) Urine Creatinine Urine Total Protein Fluid Total Protein Vancomycin Trough Rheumatoid Factor Complement C4 Miscellaneous Test Crossmatch 09/21/16 09/21/16 09/21/16 07:45 07:45 10:01 WBC 13.8 H RBC 2.94 L Hgb 7.5 L Hct 23.5 L MCV MCH 26 L MCHC RDW 21.2 H Plt Count Lymph % (Auto) 6.9 L [place] % (Auto) 9.4 H Lymph # 0.9 L [place] # 1.3 H Baso # Seg Neutrophils % 83.2 H Seg Neuts % (Manual) Lymphocytes % (Manual) Monocytes % (Manual) Eosinophils % (Manual) Basophils % (Manual) Nucleated RBC % Seg Neutrophils # 11.5 H Seg Neutrophils # Man Lymphocytes # (Manual) Monocytes # (Manual) Eosinophils # (Manual) Basophils # (Manual) PT INR Fibrinogen dRVVT Confirm Interp Factor V Activity POC ABG pH 7.308 L POC ABG pCO2 31.9 L POC ABG pO2 148 H ABG pO2 ABG HCO3 ABG Base Excess ABG Hemoglobin Oxyhemoglobin Sodium 147 H Potassium Chloride 114.2 H Carbon Dioxide 15 L BUN 120 H Creatinine 3.9 H Glucose 156 H POC Glucose Lactic Acid Calcium 8.2 L Phosphorus Magnesium Direct Bilirubin AST ALT Alkaline Phosphatase Lactate Dehydrogenase Troponin T C-Reactive Protein Total Protein Albumin Prealbumin Triglycerides Cholesterol LDL Cholesterol Direct HDL Cholesterol Urine pH Urine WBC (Auto) Urine Creatinine Urine Total Protein Fluid Total Protein Vancomycin Trough Rheumatoid Factor Complement C4 Miscellaneous Test Crossmatch 09/21/16 09/21/16 09/21/16 12:00 12:03 13:00 WBC RBC Hgb Hct MCV MCH MCHC RDW Plt Count Lymph % (Auto) [place] % (Auto) Lymph # [place] # Baso # Seg Neutrophils % Seg Neuts % (Manual) Lymphocytes % (Manual) Monocytes % (Manual) Eosinophils % (Manual) Basophils % (Manual) Nucleated RBC % Seg Neutrophils # Seg Neutrophils # Man Lymphocytes # (Manual) Monocytes # (Manual) Eosinophils # (Manual) Basophils # (Manual) PT INR Fibrinogen dRVVT Confirm Interp Factor V Activity POC ABG pH POC ABG pCO2 POC ABG pO2 ABG pO2 ABG HCO3 ABG Base Excess ABG Hemoglobin Oxyhemoglobin Sodium Potassium Chloride Carbon Dioxide BUN Creatinine Glucose POC Glucose 163 H Lactic Acid Calcium Phosphorus Magnesium Direct Bilirubin AST ALT Alkaline Phosphatase Lactate Dehydrogenase Troponin T C-Reactive Protein Total Protein Albumin Prealbumin Triglycerides Cholesterol LDL Cholesterol Direct HDL Cholesterol Urine pH Urine WBC (Auto) Urine Creatinine 54.8 H Urine Total Protein Fluid Total Protein Vancomycin Trough 2.3 L Rheumatoid Factor Complement C4 Miscellaneous Test Crossmatch 09/21/16 09/21/16 09/22/16 16:51 23:17 06:27 WBC RBC Hgb Hct MCV MCH MCHC RDW Plt Count Lymph % (Auto) [place] % (Auto) Lymph # [place] # Baso # Seg Neutrophils % Seg Neuts % (Manual) Lymphocytes % (Manual) Monocytes % (Manual) Eosinophils % (Manual) Basophils % (Manual) Nucleated RBC % Seg Neutrophils # Seg Neutrophils # Man Lymphocytes # (Manual) Monocytes # (Manual) Eosinophils # (Manual) Basophils # (Manual) PT INR Fibrinogen dRVVT Confirm Interp Factor V Activity POC ABG pH POC ABG pCO2 POC ABG pO2 ABG pO2 ABG HCO3 ABG Base Excess ABG Hemoglobin Oxyhemoglobin Sodium Potassium Chloride Carbon Dioxide BUN Creatinine Glucose POC Glucose 206 H 114 H 115 H Lactic Acid Calcium Phosphorus Magnesium Direct Bilirubin AST ALT Alkaline Phosphatase Lactate Dehydrogenase Troponin T C-Reactive Protein Total Protein Albumin Prealbumin Triglycerides Cholesterol LDL Cholesterol Direct HDL Cholesterol Urine pH Urine WBC (Auto) Urine Creatinine Urine Total Protein Fluid Total Protein Vancomycin Trough Rheumatoid Factor Complement C4 Miscellaneous Test Crossmatch 09/22/16 09/22/16 09/22/16 07:50 07:50 12:00 WBC 17.8 H RBC 3.04 L Hgb 8.0 L Hct 24.7 L MCV MCH 26 L MCHC RDW 21.6 H Plt Count Lymph % (Auto) [place] % (Auto) Lymph # [place] # Baso # Seg Neutrophils % Seg Neuts % (Manual) Lymphocytes % (Manual) Monocytes % (Manual) Eosinophils % (Manual) Basophils % (Manual) Nucleated RBC % Seg Neutrophils # Seg Neutrophils # Man Lymphocytes # (Manual) Monocytes # (Manual) Eosinophils # (Manual) Basophils # (Manual) PT INR Fibrinogen dRVVT Confirm Interp Factor V Activity POC ABG pH POC ABG pCO2 POC ABG pO2 ABG pO2 ABG HCO3 ABG Base Excess ABG Hemoglobin Oxyhemoglobin Sodium 150 H Potassium Chloride 118.2 H Carbon Dioxide 14 L BUN 111 H Creatinine 3.7 H Glucose 157 H POC Glucose 183 H Lactic Acid Calcium Phosphorus Magnesium Direct Bilirubin AST ALT Alkaline Phosphatase Lactate Dehydrogenase Troponin T C-Reactive Protein Total Protein Albumin Prealbumin Triglycerides Cholesterol LDL Cholesterol Direct HDL Cholesterol Urine pH Urine WBC (Auto) Urine Creatinine Urine Total Protein Fluid Total Protein Vancomycin Trough Rheumatoid Factor Complement C4 Miscellaneous Test Crossmatch 09/22/16 09/22/16 09/23/16 17:29 23:10 05:00 WBC 19.2 H RBC 3.13 L Hgb 8.0 L Hct 25.2 L MCV MCH 26 L MCHC RDW 22.1 H Plt Count Lymph % (Auto) [place] % (Auto) Lymph # [place] # Baso # Seg Neutrophils % Seg Neuts % (Manual) 92.0 H Lymphocytes % (Manual) 3.0 L Monocytes % (Manual) Eosinophils % (Manual) Basophils % (Manual) Nucleated RBC % Seg Neutrophils # Seg Neutrophils # Man 17.7 H Lymphocytes # (Manual) 0.6 L Monocytes # (Manual) Eosinophils # (Manual) Basophils # (Manual) PT INR Fibrinogen dRVVT Confirm Interp Factor V Activity POC ABG pH POC ABG pCO2 POC ABG pO2 ABG pO2 ABG HCO3 ABG Base Excess ABG Hemoglobin Oxyhemoglobin Sodium Potassium Chloride Carbon Dioxide BUN Creatinine Glucose POC Glucose 197 H 169 H Lactic Acid Calcium Phosphorus Magnesium Direct Bilirubin AST ALT Alkaline Phosphatase Lactate Dehydrogenase Troponin T C-Reactive Protein Total Protein Albumin Prealbumin Triglycerides Cholesterol LDL Cholesterol Direct HDL Cholesterol Urine pH Urine WBC (Auto) Urine Creatinine Urine Total Protein Fluid Total Protein Vancomycin Trough Rheumatoid Factor Complement C4 Miscellaneous Test Crossmatch 09/23/16 09/23/16 09/23/16 05:00 05:00 05:10 WBC RBC Hgb Hct MCV MCH MCHC RDW Plt Count Lymph % (Auto) [place] % (Auto) Lymph # [place] # Baso # Seg Neutrophils % Seg Neuts % (Manual) Lymphocytes % (Manual) Monocytes % (Manual) Eosinophils % (Manual) Basophils % (Manual) Nucleated RBC % Seg Neutrophils # Seg Neutrophils # Man Lymphocytes # (Manual) Monocytes # (Manual) Eosinophils # (Manual) Basophils # (Manual) PT INR Fibrinogen dRVVT Confirm Interp Factor V Activity POC ABG pH POC ABG pCO2 POC ABG pO2 ABG pO2 ABG HCO3 ABG Base Excess ABG Hemoglobin Oxyhemoglobin Sodium 147 H Potassium 3.2 L Chloride 115.7 H Carbon Dioxide 13 L BUN 111 H Creatinine 3.8 H Glucose 194 H POC Glucose 188 H Lactic Acid Calcium 7.3 L D Phosphorus Magnesium Direct Bilirubin AST ALT Alkaline Phosphatase Lactate Dehydrogenase Troponin T C-Reactive Protein 3.20 H Total Protein Albumin Prealbumin Triglycerides Cholesterol LDL Cholesterol Direct HDL Cholesterol Urine pH Urine WBC (Auto) Urine Creatinine Urine Total Protein Fluid Total Protein Vancomycin Trough Rheumatoid Factor Complement C4 Miscellaneous Test Crossmatch 09/23/16 09/23/16 09/23/16 11:37 12:29 18:01 WBC RBC Hgb Hct MCV MCH MCHC RDW Plt Count Lymph % (Auto) [place] % (Auto) Lymph # [place] # Baso # Seg Neutrophils % Seg Neuts % (Manual) Lymphocytes % (Manual) Monocytes % (Manual) Eosinophils % (Manual) Basophils % (Manual) Nucleated RBC % Seg Neutrophils # Seg Neutrophils # Man Lymphocytes # (Manual) Monocytes # (Manual) Eosinophils # (Manual) Basophils # (Manual) PT INR Fibrinogen dRVVT Confirm Interp Factor V Activity POC ABG pH POC ABG pCO2 18.9 L POC ABG pO2 143 H ABG pO2 ABG HCO3 ABG Base Excess ABG Hemoglobin Oxyhemoglobin Sodium Potassium Chloride Carbon Dioxide BUN Creatinine Glucose POC Glucose 153 H 108 H Lactic Acid Calcium Phosphorus Magnesium Direct Bilirubin AST ALT Alkaline Phosphatase Lactate Dehydrogenase Troponin T C-Reactive Protein Total Protein Albumin Prealbumin Triglycerides Cholesterol LDL Cholesterol Direct HDL Cholesterol Urine pH Urine WBC (Auto) Urine Creatinine Urine Total Protein Fluid Total Protein Vancomycin Trough Rheumatoid Factor Complement C4 Miscellaneous Test Crossmatch 09/23/16 09/23/16 09/24/16 21:19 23:43 05:16 WBC RBC Hgb Hct MCV MCH MCHC RDW Plt Count Lymph % (Auto) [place] % (Auto) Lymph # [place] # Baso # Seg Neutrophils % Seg Neuts % (Manual) Lymphocytes % (Manual) Monocytes % (Manual) Eosinophils % (Manual) Basophils % (Manual) Nucleated RBC % Seg Neutrophils # Seg Neutrophils # Man Lymphocytes # (Manual) Monocytes # (Manual) Eosinophils # (Manual) Basophils # (Manual) PT INR Fibrinogen dRVVT Confirm Interp Factor V Activity POC ABG pH POC ABG pCO2 17.3 L POC ABG pO2 112 H ABG pO2 ABG HCO3 ABG Base Excess ABG Hemoglobin Oxyhemoglobin Sodium Potassium Chloride Carbon Dioxide BUN Creatinine Glucose POC Glucose 143 H 164 H Lactic Acid Calcium Phosphorus Magnesium Direct Bilirubin AST ALT Alkaline Phosphatase Lactate Dehydrogenase Troponin T C-Reactive Protein Total Protein Albumin Prealbumin Triglycerides Cholesterol LDL Cholesterol Direct HDL Cholesterol Urine pH Urine WBC (Auto) Urine Creatinine Urine Total Protein Fluid Total Protein Vancomycin Trough Rheumatoid Factor Complement C4 Miscellaneous Test Crossmatch 09/24/16 09/24/16 09/24/16 05:21 11:58 17:06 WBC RBC Hgb Hct MCV MCH MCHC RDW Plt Count Lymph % (Auto) [place] % (Auto) Lymph # [place] # Baso # Seg Neutrophils % Seg Neuts % (Manual) Lymphocytes % (Manual) Monocytes % (Manual) Eosinophils % (Manual) Basophils % (Manual) Nucleated RBC % Seg Neutrophils # Seg Neutrophils # Man Lymphocytes # (Manual) Monocytes # (Manual) Eosinophils # (Manual) Basophils # (Manual) PT INR Fibrinogen dRVVT Confirm Interp Factor V Activity POC ABG pH POC ABG pCO2 POC ABG pO2 ABG pO2 ABG HCO3 ABG Base Excess ABG Hemoglobin Oxyhemoglobin Sodium Potassium Chloride Carbon Dioxide 10 L BUN 103 H Creatinine 4.3 H Glucose 163 H POC Glucose 173 H 167 H Lactic Acid Calcium 6.5 L Phosphorus Magnesium Direct Bilirubin AST ALT Alkaline Phosphatase Lactate Dehydrogenase Troponin T C-Reactive Protein Total Protein Albumin Prealbumin Triglycerides Cholesterol LDL Cholesterol Direct HDL Cholesterol Urine pH Urine WBC (Auto) Urine Creatinine Urine Total Protein Fluid Total Protein Vancomycin Trough Rheumatoid Factor Complement C4 Miscellaneous Test Crossmatch 09/24/16 09/24/16 09/24/16 20:15 21:02 23:48 WBC RBC Hgb Hct MCV MCH MCHC RDW Plt Count Lymph % (Auto) [place] % (Auto) Lymph # [place] # Baso # Seg Neutrophils % Seg Neuts % (Manual) Lymphocytes % (Manual) Monocytes % (Manual) Eosinophils % (Manual) Basophils % (Manual) Nucleated RBC % Seg Neutrophils # Seg Neutrophils # Man Lymphocytes # (Manual) Monocytes # (Manual) Eosinophils # (Manual) Basophils # (Manual) PT INR Fibrinogen dRVVT Confirm Interp Factor V Activity POC ABG pH 7.288 L POC ABG pCO2 30.2 L 21.5 L POC ABG pO2 32 L 39 L ABG pO2 ABG HCO3 ABG Base Excess ABG Hemoglobin Oxyhemoglobin Sodium Potassium Chloride Carbon Dioxide BUN Creatinine Glucose POC Glucose 109 H Lactic Acid Calcium Phosphorus Magnesium Direct Bilirubin AST ALT Alkaline Phosphatase Lactate Dehydrogenase Troponin T C-Reactive Protein Total Protein Albumin Prealbumin Triglycerides Cholesterol LDL Cholesterol Direct HDL Cholesterol Urine pH Urine WBC (Auto) Urine Creatinine Urine Total Protein Fluid Total Protein Vancomycin Trough Rheumatoid Factor Complement C4 Miscellaneous Test Crossmatch 09/25/16 09/25/16 09/25/16 04:20 04:20 04:20 WBC RBC 2.58 L Hgb 7.0 L Hct 21.0 L MCV MCH 27 L MCHC RDW 23.8 H Plt Count Lymph % (Auto) [place] % (Auto) Lymph # [place] # Baso # Seg Neutrophils % Seg Neuts % (Manual) Lymphocytes % (Manual) 12.0 L Monocytes % (Manual) Eosinophils % (Manual) 7.0 H Basophils % (Manual) 2.0 H Nucleated RBC % Seg Neutrophils # Seg Neutrophils # Man Lymphocytes # (Manual) 0.9 L Monocytes # (Manual) Eosinophils # (Manual) 0.5 H Basophils # (Manual) PT INR Fibrinogen dRVVT Confirm Interp Factor V Activity POC ABG pH POC ABG pCO2 POC ABG pO2 ABG pO2 ABG HCO3 ABG Base Excess ABG Hemoglobin Oxyhemoglobin Sodium Potassium Chloride Carbon Dioxide 15 L BUN 72 H Creatinine 3.8 H Glucose POC Glucose Lactic Acid Calcium 6.0 L Phosphorus 4.60 H Magnesium 1.60 L Direct Bilirubin AST ALT Alkaline Phosphatase Lactate Dehydrogenase Troponin T C-Reactive Protein Total Protein Albumin Prealbumin Triglycerides Cholesterol LDL Cholesterol Direct HDL Cholesterol Urine pH Urine WBC (Auto) Urine Creatinine Urine Total Protein Fluid Total Protein Vancomycin Trough Rheumatoid Factor Complement C4 Miscellaneous Test Crossmatch 09/25/16 09/25/16 09/25/16 04:57 08:02 10:30 WBC RBC Hgb Hct MCV MCH MCHC RDW Plt Count Lymph % (Auto) [place] % (Auto) Lymph # [place] # Baso # Seg Neutrophils % Seg Neuts % (Manual) Lymphocytes % (Manual) Monocytes % (Manual) Eosinophils % (Manual) Basophils % (Manual) Nucleated RBC % Seg Neutrophils # Seg Neutrophils # Man Lymphocytes # (Manual) Monocytes # (Manual) Eosinophils # (Manual) Basophils # (Manual) PT INR Fibrinogen dRVVT Confirm Interp Factor V Activity POC ABG pH POC ABG pCO2 24.7 L POC ABG pO2 152 H ABG pO2 ABG HCO3 ABG Base Excess ABG Hemoglobin Oxyhemoglobin Sodium Potassium Chloride Carbon Dioxide BUN Creatinine Glucose POC Glucose 113 H Lactic Acid Calcium Phosphorus Magnesium Direct Bilirubin AST ALT Alkaline Phosphatase Lactate Dehydrogenase Troponin T C-Reactive Protein Total Protein Albumin Prealbumin Triglycerides Cholesterol LDL Cholesterol Direct HDL Cholesterol Urine pH Urine WBC (Auto) Urine Creatinine Urine Total Protein Fluid Total Protein Vancomycin Trough Rheumatoid Factor Complement C4 Miscellaneous Test Crossmatch See Detail 09/25/16 09/25/16 09/25/16 12:05 17:44 23:47 WBC RBC Hgb Hct MCV MCH MCHC RDW Plt Count Lymph % (Auto) [place] % (Auto) Lymph # [place] # Baso # Seg Neutrophils % Seg Neuts % (Manual) Lymphocytes % (Manual) Monocytes % (Manual) Eosinophils % (Manual) Basophils % (Manual) Nucleated RBC % Seg Neutrophils # Seg Neutrophils # Man Lymphocytes # (Manual) Monocytes # (Manual) Eosinophils # (Manual) Basophils # (Manual) PT INR Fibrinogen dRVVT Confirm Interp Factor V Activity POC ABG pH POC ABG pCO2 POC ABG pO2 ABG pO2 ABG HCO3 ABG Base Excess ABG Hemoglobin Oxyhemoglobin Sodium Potassium Chloride Carbon Dioxide BUN Creatinine Glucose POC Glucose 117 H 119 H 150 H Lactic Acid Calcium Phosphorus Magnesium Direct Bilirubin AST ALT Alkaline Phosphatase Lactate Dehydrogenase Troponin T C-Reactive Protein Total Protein Albumin Prealbumin Triglycerides Cholesterol LDL Cholesterol Direct HDL Cholesterol Urine pH Urine WBC (Auto) Urine Creatinine Urine Total Protein Fluid Total Protein Vancomycin Trough Rheumatoid Factor Complement C4 Miscellaneous Test Crossmatch 09/26/16 09/26/16 09/26/16 04:25 04:25 04:25 WBC RBC 2.65 L Hgb 7.4 L Hct 21.6 L MCV MCH MCHC RDW 22.5 H Plt Count Lymph % (Auto) [place] % (Auto) Lymph # [place] # Baso # Seg Neutrophils % Seg Neuts % (Manual) Lymphocytes % (Manual) 6.0 L Monocytes % (Manual) Eosinophils % (Manual) 11.0 H Basophils % (Manual) Nucleated RBC % Seg Neutrophils # Seg Neutrophils # Man Lymphocytes # (Manual) 0.4 L Monocytes # (Manual) Eosinophils # (Manual) 0.6 H Basophils # (Manual) PT INR Fibrinogen dRVVT Confirm Interp Factor V Activity POC ABG pH POC ABG pCO2 POC ABG pO2 ABG pO2 ABG HCO3 ABG Base Excess ABG Hemoglobin Oxyhemoglobin Sodium Potassium Chloride 97.0 L Carbon Dioxide 19 L BUN 43 H Creatinine 2.6 H Glucose 130 H POC Glucose Lactic Acid 4.40 H* Calcium 6.7 L Phosphorus Magnesium Direct Bilirubin AST ALT Alkaline Phosphatase Lactate Dehydrogenase Troponin T C-Reactive Protein Total Protein Albumin Prealbumin Triglycerides Cholesterol LDL Cholesterol Direct HDL Cholesterol Urine pH Urine WBC (Auto) Urine Creatinine Urine Total Protein Fluid Total Protein Vancomycin Trough Rheumatoid Factor Complement C4 Miscellaneous Test Crossmatch 09/26/16 09/26/16 09/26/16 05:20 11:44 12:12 WBC RBC Hgb Hct MCV MCH MCHC RDW Plt Count Lymph % (Auto) [place] % (Auto) Lymph # [place] # Baso # Seg Neutrophils % Seg Neuts % (Manual) Lymphocytes % (Manual) Monocytes % (Manual) Eosinophils % (Manual) Basophils % (Manual) Nucleated RBC % Seg Neutrophils # Seg Neutrophils # Man Lymphocytes # (Manual) Monocytes # (Manual) Eosinophils # (Manual) Basophils # (Manual) PT INR Fibrinogen dRVVT Confirm Interp Factor V Activity POC ABG pH POC ABG pCO2 27.0 L POC ABG pO2 69 L ABG pO2 ABG HCO3 ABG Base Excess ABG Hemoglobin Oxyhemoglobin Sodium Potassium Chloride Carbon Dioxide BUN Creatinine Glucose POC Glucose 121 H 128 H Lactic Acid Calcium Phosphorus Magnesium Direct Bilirubin AST ALT Alkaline Phosphatase Lactate Dehydrogenase Troponin T C-Reactive Protein Total Protein Albumin Prealbumin Triglycerides Cholesterol LDL Cholesterol Direct HDL Cholesterol Urine pH Urine WBC (Auto) Urine Creatinine Urine Total Protein Fluid Total Protein Vancomycin Trough Rheumatoid Factor Complement C4 Miscellaneous Test Crossmatch 09/26/16 09/26/16 09/27/16 18:31 23:40 08:20 WBC RBC Hgb Hct MCV MCH MCHC RDW Plt Count Lymph % (Auto) [place] % (Auto) Lymph # [place] # Baso # Seg Neutrophils % Seg Neuts % (Manual) Lymphocytes % (Manual) Monocytes % (Manual) Eosinophils % (Manual) Basophils % (Manual) Nucleated RBC % Seg Neutrophils # Seg Neutrophils # Man Lymphocytes # (Manual) Monocytes # (Manual) Eosinophils # (Manual) Basophils # (Manual) PT INR Fibrinogen dRVVT Confirm Interp Factor V Activity POC ABG pH POC ABG pCO2 POC ABG pO2 ABG pO2 ABG HCO3 ABG Base Excess ABG Hemoglobin Oxyhemoglobin Sodium Potassium Chloride Carbon Dioxide BUN Creatinine Glucose POC Glucose 120 H 133 H Lactic Acid 4.10 H* Calcium Phosphorus Magnesium Direct Bilirubin AST ALT Alkaline Phosphatase Lactate Dehydrogenase Troponin T C-Reactive Protein Total Protein Albumin Prealbumin Triglycerides Cholesterol LDL Cholesterol Direct HDL Cholesterol Urine pH Urine WBC (Auto) Urine Creatinine Urine Total Protein Fluid Total Protein Vancomycin Trough Rheumatoid Factor Complement C4 Miscellaneous Test Crossmatch 09/27/16 09/27/16 09/27/16 11:23 15:00 18:15 WBC RBC Hgb Hct MCV MCH MCHC RDW Plt Count Lymph % (Auto) [place] % (Auto) Lymph # [place] # Baso # Seg Neutrophils % Seg Neuts % (Manual) Lymphocytes % (Manual) Monocytes % (Manual) Eosinophils % (Manual) Basophils % (Manual) Nucleated RBC % Seg Neutrophils # Seg Neutrophils # Man Lymphocytes # (Manual) Monocytes # (Manual) Eosinophils # (Manual) Basophils # (Manual) PT INR Fibrinogen dRVVT Confirm Interp Factor V Activity POC ABG pH 7.459 H POC ABG pCO2 27.1 L POC ABG pO2 140 H ABG pO2 ABG HCO3 ABG Base Excess ABG Hemoglobin Oxyhemoglobin Sodium Potassium Chloride Carbon Dioxide BUN Creatinine Glucose POC Glucose 114 H 127 H Lactic Acid Calcium Phosphorus Magnesium Direct Bilirubin AST ALT Alkaline Phosphatase Lactate Dehydrogenase Troponin T C-Reactive Protein Total Protein Albumin Prealbumin Triglycerides Cholesterol LDL Cholesterol Direct HDL Cholesterol Urine pH Urine WBC (Auto) Urine Creatinine Urine Total Protein Fluid Total Protein Vancomycin Trough Rheumatoid Factor Complement C4 Miscellaneous Test Crossmatch 09/27/16 09/27/16 09/28/16 Unknown Unknown 03:45 WBC RBC 2.49 L Hgb 6.8 L Hct 20.7 L MCV MCH 27 L MCHC RDW 22.1 H Plt Count Lymph % (Auto) [place] % (Auto) Lymph # [place] # Baso # Seg Neutrophils % Seg Neuts % (Manual) 32.0 L Lymphocytes % (Manual) 12.0 L Monocytes % (Manual) 11.0 H Eosinophils % (Manual) 10.0 H Basophils % (Manual) Nucleated RBC % Seg Neutrophils # Seg Neutrophils # Man Lymphocytes # (Manual) 1.0 L Monocytes # (Manual) 0.9 H Eosinophils # (Manual) 0.8 H Basophils # (Manual) PT INR Fibrinogen dRVVT Confirm Interp Factor V Activity POC ABG pH POC ABG pCO2 POC ABG pO2 ABG pO2 ABG HCO3 ABG Base Excess ABG Hemoglobin Oxyhemoglobin Sodium 135 L 135 L Potassium 3.5 L Chloride 93.6 L 94.4 L Carbon Dioxide 17 L 21 L BUN 45 H 28 H Creatinine 3.3 H 2.5 H Glucose 106 H POC Glucose Lactic Acid Calcium 7.3 L 7.1 L Phosphorus Magnesium Direct Bilirubin AST ALT Alkaline Phosphatase Lactate Dehydrogenase Troponin T C-Reactive Protein Total Protein Albumin Prealbumin Triglycerides Cholesterol LDL Cholesterol Direct HDL Cholesterol Urine pH Urine WBC (Auto) Urine Creatinine Urine Total Protein Fluid Total Protein Vancomycin Trough Rheumatoid Factor Complement C4 Miscellaneous Test Crossmatch 09/28/16 09/28/16 09/28/16 03:45 07:25 11:58 WBC 13.3 H RBC 3.01 L Hgb 8.4 L Hct 25.0 L MCV MCH MCHC RDW 20.5 H Plt Count 128 L Lymph % (Auto) [place] % (Auto) Lymph # [place] # Baso # Seg Neutrophils % Seg Neuts % (Manual) Lymphocytes % (Manual) 7.0 L Monocytes % (Manual) Eosinophils % (Manual) 6.0 H Basophils % (Manual) Nucleated RBC % Seg Neutrophils # Seg Neutrophils # Man Lymphocytes # (Manual) 0.9 L Monocytes # (Manual) Eosinophils # (Manual) 0.8 H Basophils # (Manual) PT INR Fibrinogen dRVVT Confirm Interp Factor V Activity POC ABG pH POC ABG pCO2 POC ABG pO2 ABG pO2 ABG HCO3 ABG Base Excess ABG Hemoglobin Oxyhemoglobin Sodium Potassium Chloride Carbon Dioxide BUN Creatinine Glucose POC Glucose 121 H Lactic Acid 4.50 H* Calcium Phosphorus Magnesium Direct Bilirubin AST ALT Alkaline Phosphatase Lactate Dehydrogenase Troponin T C-Reactive Protein Total Protein Albumin Prealbumin Triglycerides Cholesterol LDL Cholesterol Direct HDL Cholesterol Urine pH Urine WBC (Auto) Urine Creatinine Urine Total Protein Fluid Total Protein Vancomycin Trough Rheumatoid Factor Complement C4 Miscellaneous Test Crossmatch 09/29/16 09/29/16 09/29/16 06:45 06:45 06:45 WBC 14.9 H RBC 2.74 L Hgb 7.6 L Hct 23.2 L MCV MCH MCHC RDW 20.5 H Plt Count 81 L Lymph % (Auto) [place] % (Auto) Lymph # [place] # Baso # Seg Neutrophils % Seg Neuts % (Manual) 81.0 H Lymphocytes % (Manual) 4.0 L Monocytes % (Manual) Eosinophils % (Manual) Basophils % (Manual) Nucleated RBC % Seg Neutrophils # Seg Neutrophils # Man 12.1 H Lymphocytes # (Manual) 0.6 L Monocytes # (Manual) Eosinophils # (Manual) Basophils # (Manual) PT INR Fibrinogen dRVVT Confirm Interp Factor V Activity POC ABG pH POC ABG pCO2 POC ABG pO2 ABG pO2 ABG HCO3 ABG Base Excess ABG Hemoglobin Oxyhemoglobin Sodium 133 L Potassium 3.4 L Chloride 92.5 L Carbon Dioxide 21 L BUN 33 H Creatinine 3.0 H Glucose POC Glucose Lactic Acid Calcium 6.6 L Phosphorus Magnesium 1.40 L Direct Bilirubin 0.9 H AST ALT Alkaline Phosphatase Lactate Dehydrogenase Troponin T C-Reactive Protein Total Protein 4.3 L Albumin 1.3 L Prealbumin Triglycerides Cholesterol LDL Cholesterol Direct HDL Cholesterol Urine pH Urine WBC (Auto) Urine Creatinine Urine Total Protein Fluid Total Protein Vancomycin Trough Rheumatoid Factor Complement C4 Miscellaneous Test Crossmatch 09/29/16 09/29/16 09/30/16 17:52 20:12 00:07 WBC RBC Hgb Hct MCV MCH MCHC RDW Plt Count Lymph % (Auto) [place] % (Auto) Lymph # [place] # Baso # Seg Neutrophils % Seg Neuts % (Manual) Lymphocytes % (Manual) Monocytes % (Manual) Eosinophils % (Manual) Basophils % (Manual) Nucleated RBC % Seg Neutrophils # Seg Neutrophils # Man Lymphocytes # (Manual) Monocytes # (Manual) Eosinophils # (Manual) Basophils # (Manual) PT INR Fibrinogen dRVVT Confirm Interp Factor V Activity POC ABG pH POC ABG pCO2 POC ABG pO2 ABG pO2 ABG HCO3 ABG Base Excess ABG Hemoglobin Oxyhemoglobin Sodium Potassium Chloride Carbon Dioxide BUN Creatinine Glucose POC Glucose 50 L 51 L Lactic Acid Calcium Phosphorus Magnesium Direct Bilirubin AST ALT Alkaline Phosphatase Lactate Dehydrogenase Troponin T 0.204 H* C-Reactive Protein Total Protein Albumin Prealbumin Triglycerides Cholesterol 31 L LDL Cholesterol Direct 4 L HDL Cholesterol 3 L Urine pH Urine WBC (Auto) Urine Creatinine Urine Total Protein Fluid Total Protein Vancomycin Trough Rheumatoid Factor Complement C4 Miscellaneous Test Crossmatch 09/30/16 09/30/16 09/30/16 01:30 05:15 06:10 WBC RBC Hgb Hct MCV MCH MCHC RDW Plt Count Lymph % (Auto) [place] % (Auto) Lymph # [place] # Baso # Seg Neutrophils % Seg Neuts % (Manual) Lymphocytes % (Manual) Monocytes % (Manual) Eosinophils % (Manual) Basophils % (Manual) Nucleated RBC % Seg Neutrophils # Seg Neutrophils # Man Lymphocytes # (Manual) Monocytes # (Manual) Eosinophils # (Manual) Basophils # (Manual) PT INR Fibrinogen dRVVT Confirm Interp Factor V Activity POC ABG pH POC ABG pCO2 POC ABG pO2 ABG pO2 ABG HCO3 ABG Base Excess ABG Hemoglobin Oxyhemoglobin Sodium 133 L Potassium 3.2 L Chloride 93.2 L Carbon Dioxide 19 L BUN 36 H Creatinine 3.2 H Glucose 104 H POC Glucose 167 H 146 H Lactic Acid Calcium 6.4 L Phosphorus Magnesium 1.60 L Direct Bilirubin AST ALT Alkaline Phosphatase Lactate Dehydrogenase Troponin T C-Reactive Protein Total Protein Albumin Prealbumin Triglycerides Cholesterol LDL Cholesterol Direct HDL Cholesterol Urine pH Urine WBC (Auto) Urine Creatinine Urine Total Protein Fluid Total Protein Vancomycin Trough Rheumatoid Factor Complement C4 Miscellaneous Test Crossmatch 09/30/16 09/30/16 09/30/16 11:26 13:39 18:38 WBC RBC Hgb Hct MCV MCH MCHC RDW Plt Count Lymph % (Auto) [place] % (Auto) Lymph # [place] # Baso # Seg Neutrophils % Seg Neuts % (Manual) Lymphocytes % (Manual) Monocytes % (Manual) Eosinophils % (Manual) Basophils % (Manual) Nucleated RBC % Seg Neutrophils # Seg Neutrophils # Man Lymphocytes # (Manual) Monocytes # (Manual) Eosinophils # (Manual) Basophils # (Manual) PT INR Fibrinogen dRVVT Confirm Interp Factor V Activity POC ABG pH 7.479 H POC ABG pCO2 29.8 L POC ABG pO2 117 H ABG pO2 ABG HCO3 ABG Base Excess ABG Hemoglobin Oxyhemoglobin Sodium Potassium Chloride Carbon Dioxide BUN Creatinine Glucose POC Glucose 140 H 122 H Lactic Acid Calcium Phosphorus Magnesium Direct Bilirubin AST ALT Alkaline Phosphatase Lactate Dehydrogenase Troponin T C-Reactive Protein Total Protein Albumin Prealbumin Triglycerides Cholesterol LDL Cholesterol Direct HDL Cholesterol Urine pH Urine WBC (Auto) Urine Creatinine Urine Total Protein Fluid Total Protein Vancomycin Trough Rheumatoid Factor Complement C4 Miscellaneous Test Crossmatch 10/01/16 10/01/16 10/01/16 06:00 06:00 12:37 WBC 12.6 H RBC 2.75 L Hgb 7.3 L Hct 23.3 L MCV MCH 27 L MCHC RDW 20.6 H Plt Count 72 L Lymph % (Auto) [place] % (Auto) Lymph # [place] # Baso # Seg Neutrophils % Seg Neuts % (Manual) 31.0 L Lymphocytes % (Manual) 8.0 L Monocytes % (Manual) Eosinophils % (Manual) Basophils % (Manual) Nucleated RBC % 3.0 H Seg Neutrophils # Seg Neutrophils # Man Lymphocytes # (Manual) 1.0 L Monocytes # (Manual) Eosinophils # (Manual) Basophils # (Manual) PT INR Fibrinogen dRVVT Confirm Interp Factor V Activity POC ABG pH POC ABG pCO2 POC ABG pO2 ABG pO2 ABG HCO3 ABG Base Excess ABG Hemoglobin Oxyhemoglobin Sodium 127 L Potassium Chloride 86.8 L Carbon Dioxide 20 L BUN 42 H Creatinine 3.5 H Glucose POC Glucose 65 L Lactic Acid Calcium 7.0 L Phosphorus Magnesium Direct Bilirubin AST ALT Alkaline Phosphatase Lactate Dehydrogenase Troponin T C-Reactive Protein Total Protein Albumin Prealbumin Triglycerides Cholesterol LDL Cholesterol Direct HDL Cholesterol Urine pH Urine WBC (Auto) Urine Creatinine Urine Total Protein Fluid Total Protein Vancomycin Trough Rheumatoid Factor Complement C4 Miscellaneous Test Crossmatch 10/01/16 10/01/16 10/02/16 17:39 23:32 00:59 WBC RBC Hgb Hct MCV MCH MCHC RDW Plt Count Lymph % (Auto) [place] % (Auto) Lymph # [place] # Baso # Seg Neutrophils % Seg Neuts % (Manual) Lymphocytes % (Manual) Monocytes % (Manual) Eosinophils % (Manual) Basophils % (Manual) Nucleated RBC % Seg Neutrophils # Seg Neutrophils # Man Lymphocytes # (Manual) Monocytes # (Manual) Eosinophils # (Manual) Basophils # (Manual) PT INR Fibrinogen dRVVT Confirm Interp Factor V Activity POC ABG pH POC ABG pCO2 POC ABG pO2 ABG pO2 ABG HCO3 ABG Base Excess ABG Hemoglobin Oxyhemoglobin Sodium Potassium Chloride Carbon Dioxide BUN Creatinine Glucose POC Glucose 107 H 52 L 145 H Lactic Acid Calcium Phosphorus Magnesium Direct Bilirubin AST ALT Alkaline Phosphatase Lactate Dehydrogenase Troponin T C-Reactive Protein Total Protein Albumin Prealbumin Triglycerides Cholesterol LDL Cholesterol Direct HDL Cholesterol Urine pH Urine WBC (Auto) Urine Creatinine Urine Total Protein Fluid Total Protein Vancomycin Trough Rheumatoid Factor Complement C4 Miscellaneous Test Crossmatch 10/02/16 10/02/16 10/02/16 10:30 10:50 10:50 WBC 14.7 H RBC 2.76 L Hgb 7.4 L Hct 23.6 L MCV MCH 27 L MCHC RDW 20.2 H Plt Count 79 L Lymph % (Auto) [place] % (Auto) Lymph # [place] # Baso # Seg Neutrophils % Seg Neuts % (Manual) 86.0 H Lymphocytes % (Manual) 6.0 L Monocytes % (Manual) Eosinophils % (Manual) Basophils % (Manual) Nucleated RBC % Seg Neutrophils # Seg Neutrophils # Man 12.6 H Lymphocytes # (Manual) 0.9 L Monocytes # (Manual) Eosinophils # (Manual) Basophils # (Manual) PT INR Fibrinogen dRVVT Confirm Interp Factor V Activity POC ABG pH 7.486 H POC ABG pCO2 30.1 L POC ABG pO2 108 H ABG pO2 ABG HCO3 ABG Base Excess ABG Hemoglobin Oxyhemoglobin Sodium 131 L Potassium 3.4 L Chloride 89.9 L Carbon Dioxide BUN 26 H Creatinine 2.6 H Glucose POC Glucose Lactic Acid Calcium 7.0 L Phosphorus Magnesium Direct Bilirubin AST ALT Alkaline Phosphatase Lactate Dehydrogenase Troponin T C-Reactive Protein Total Protein Albumin Prealbumin Triglycerides Cholesterol LDL Cholesterol Direct HDL Cholesterol Urine pH Urine WBC (Auto) Urine Creatinine Urine Total Protein Fluid Total Protein Vancomycin Trough Rheumatoid Factor Complement C4 Miscellaneous Test Crossmatch 10/02/16 10/03/16 10/03/16 23:45 00:45 05:10 WBC 12.9 H RBC 2.77 L Hgb 7.6 L Hct 23.7 L MCV MCH 27 L MCHC RDW 19.7 H Plt Count 89 L Lymph % (Auto) [place] % (Auto) Lymph # [place] # Baso # Seg Neutrophils % Seg Neuts % (Manual) Lymphocytes % (Manual) 8.0 L Monocytes % (Manual) Eosinophils % (Manual) Basophils % (Manual) Nucleated RBC % Seg Neutrophils # 11.9 H Seg Neutrophils # Man Lymphocytes # (Manual) 1.0 L Monocytes # (Manual) Eosinophils # (Manual) Basophils # (Manual) PT INR Fibrinogen dRVVT Confirm Interp Factor V Activity POC ABG pH POC ABG pCO2 POC ABG pO2 ABG pO2 ABG HCO3 ABG Base Excess ABG Hemoglobin Oxyhemoglobin Sodium Potassium Chloride Carbon Dioxide BUN Creatinine Glucose POC Glucose 55 L 199 H Lactic Acid Calcium Phosphorus Magnesium Direct Bilirubin AST ALT Alkaline Phosphatase Lactate Dehydrogenase Troponin T C-Reactive Protein Total Protein Albumin Prealbumin Triglycerides Cholesterol LDL Cholesterol Direct HDL Cholesterol Urine pH Urine WBC (Auto) Urine Creatinine Urine Total Protein Fluid Total Protein Vancomycin Trough Rheumatoid Factor Complement C4 Miscellaneous Test Crossmatch 10/03/16 10/03/16 10/03/16 05:10 12:14 13:18 WBC RBC Hgb Hct MCV MCH MCHC RDW Plt Count Lymph % (Auto) [place] % (Auto) Lymph # [place] # Baso # Seg Neutrophils % Seg Neuts % (Manual) Lymphocytes % (Manual) Monocytes % (Manual) Eosinophils % (Manual) Basophils % (Manual) Nucleated RBC % Seg Neutrophils # Seg Neutrophils # Man Lymphocytes # (Manual) Monocytes # (Manual) Eosinophils # (Manual) Basophils # (Manual) PT INR Fibrinogen dRVVT Confirm Interp Factor V Activity POC ABG pH POC ABG pCO2 POC ABG pO2 ABG pO2 ABG HCO3 ABG Base Excess ABG Hemoglobin Oxyhemoglobin Sodium 129 L Potassium 3.3 L Chloride 88.8 L Carbon Dioxide 20 L BUN 29 H Creatinine 2.8 H Glucose POC Glucose 68 L 127 H Lactic Acid Calcium 7.2 L Phosphorus Magnesium Direct Bilirubin AST ALT Alkaline Phosphatase Lactate Dehydrogenase Troponin T C-Reactive Protein Total Protein Albumin Prealbumin Triglycerides Cholesterol LDL Cholesterol Direct HDL Cholesterol Urine pH Urine WBC (Auto) Urine Creatinine Urine Total Protein Fluid Total Protein Vancomycin Trough Rheumatoid Factor Complement C4 Miscellaneous Test Crossmatch 10/03/16 10/03/16 10/03/16 14:42 18:21 19:09 WBC RBC Hgb Hct MCV MCH MCHC RDW Plt Count Lymph % (Auto) [place] % (Auto) Lymph # [place] # Baso # Seg Neutrophils % Seg Neuts % (Manual) Lymphocytes % (Manual) Monocytes % (Manual) Eosinophils % (Manual) Basophils % (Manual) Nucleated RBC % Seg Neutrophils # Seg Neutrophils # Man Lymphocytes # (Manual) Monocytes # (Manual) Eosinophils # (Manual) Basophils # (Manual) PT INR Fibrinogen dRVVT Confirm Interp Factor V Activity POC ABG pH 7.499 H POC ABG pCO2 28.4 L POC ABG pO2 44 L ABG pO2 ABG HCO3 ABG Base Excess ABG Hemoglobin Oxyhemoglobin Sodium Potassium Chloride Carbon Dioxide BUN Creatinine Glucose POC Glucose 64 L 205 H Lactic Acid Calcium Phosphorus Magnesium Direct Bilirubin AST ALT Alkaline Phosphatase Lactate Dehydrogenase Troponin T C-Reactive Protein Total Protein Albumin Prealbumin Triglycerides Cholesterol LDL Cholesterol Direct HDL Cholesterol Urine pH Urine WBC (Auto) Urine Creatinine Urine Total Protein Fluid Total Protein Vancomycin Trough Rheumatoid Factor Complement C4 Miscellaneous Test Crossmatch 10/03/16 10/04/16 10/04/16 23:33 04:18 06:30 WBC RBC 2.54 L Hgb 7.1 L Hct 21.7 L MCV MCH MCHC RDW 19.5 H Plt Count 76 L Lymph % (Auto) [place] % (Auto) Lymph # [place] # Baso # Seg Neutrophils % Seg Neuts % (Manual) 88.0 H Lymphocytes % (Manual) 6.0 L Monocytes % (Manual) Eosinophils % (Manual) Basophils % (Manual) Nucleated RBC % Seg Neutrophils # Seg Neutrophils # Man 8.8 H Lymphocytes # (Manual) 0.6 L Monocytes # (Manual) Eosinophils # (Manual) Basophils # (Manual) PT INR Fibrinogen dRVVT Confirm Interp Factor V Activity POC ABG pH 7.461 H POC ABG pCO2 33.6 L POC ABG pO2 211 H ABG pO2 ABG HCO3 ABG Base Excess ABG Hemoglobin Oxyhemoglobin Sodium Potassium Chloride Carbon Dioxide BUN Creatinine Glucose POC Glucose 136 H Lactic Acid Calcium Phosphorus Magnesium Direct Bilirubin AST ALT Alkaline Phosphatase Lactate Dehydrogenase Troponin T C-Reactive Protein Total Protein Albumin Prealbumin Triglycerides Cholesterol LDL Cholesterol Direct HDL Cholesterol Urine pH Urine WBC (Auto) Urine Creatinine Urine Total Protein Fluid Total Protein Vancomycin Trough Rheumatoid Factor Complement C4 Miscellaneous Test Crossmatch 10/04/16 10/04/16 10/04/16 06:30 11:45 17:54 WBC RBC Hgb Hct MCV MCH MCHC RDW Plt Count Lymph % (Auto) [place] % (Auto) Lymph # [place] # Baso # Seg Neutrophils % Seg Neuts % (Manual) Lymphocytes % (Manual) Monocytes % (Manual) Eosinophils % (Manual) Basophils % (Manual) Nucleated RBC % Seg Neutrophils # Seg Neutrophils # Man Lymphocytes # (Manual) Monocytes # (Manual) Eosinophils # (Manual) Basophils # (Manual) PT INR Fibrinogen dRVVT Confirm Interp Factor V Activity POC ABG pH POC ABG pCO2 POC ABG pO2 ABG pO2 ABG HCO3 ABG Base Excess ABG Hemoglobin Oxyhemoglobin Sodium 128 L Potassium Chloride 87.4 L Carbon Dioxide 20 L BUN 34 H Creatinine 2.9 H Glucose 127 H POC Glucose 158 H 160 H Lactic Acid Calcium 7.4 L Phosphorus Magnesium Direct Bilirubin AST ALT Alkaline Phosphatase Lactate Dehydrogenase Troponin T C-Reactive Protein Total Protein Albumin Prealbumin Triglycerides Cholesterol LDL Cholesterol Direct HDL Cholesterol Urine pH Urine WBC (Auto) Urine Creatinine Urine Total Protein Fluid Total Protein Vancomycin Trough Rheumatoid Factor Complement C4 Miscellaneous Test Crossmatch 10/04/16 10/05/16 10/05/16 23:25 04:30 05:00 WBC RBC 2.64 L Hgb 7.5 L Hct 22.6 L MCV MCH MCHC RDW 19.3 H Plt Count 80 L Lymph % (Auto) [place] % (Auto) Lymph # [place] # Baso # Seg Neutrophils % Seg Neuts % (Manual) Lymphocytes % (Manual) 12.0 L Monocytes % (Manual) Eosinophils % (Manual) Basophils % (Manual) Nucleated RBC % Seg Neutrophils # Seg Neutrophils # Man Lymphocytes # (Manual) Monocytes # (Manual) Eosinophils # (Manual) Basophils # (Manual) PT INR Fibrinogen dRVVT Confirm Interp Factor V Activity POC ABG pH 7.475 H POC ABG pCO2 33.3 L POC ABG pO2 140 H ABG pO2 ABG HCO3 ABG Base Excess ABG Hemoglobin Oxyhemoglobin Sodium Potassium Chloride Carbon Dioxide BUN Creatinine Glucose POC Glucose 141 H Lactic Acid Calcium Phosphorus Magnesium Direct Bilirubin AST ALT Alkaline Phosphatase Lactate Dehydrogenase Troponin T C-Reactive Protein Total Protein Albumin Prealbumin Triglycerides Cholesterol LDL Cholesterol Direct HDL Cholesterol Urine pH Urine WBC (Auto) Urine Creatinine Urine Total Protein Fluid Total Protein Vancomycin Trough Rheumatoid Factor Complement C4 Miscellaneous Test Crossmatch 10/05/16 10/05/16 10/05/16 05:00 05:09 12:58 WBC RBC Hgb Hct MCV MCH MCHC RDW Plt Count Lymph % (Auto) [place] % (Auto) Lymph # [place] # Baso # Seg Neutrophils % Seg Neuts % (Manual) Lymphocytes % (Manual) Monocytes % (Manual) Eosinophils % (Manual) Basophils % (Manual) Nucleated RBC % Seg Neutrophils # Seg Neutrophils # Man Lymphocytes # (Manual) Monocytes # (Manual) Eosinophils # (Manual) Basophils # (Manual) PT INR Fibrinogen dRVVT Confirm Interp Factor V Activity POC ABG pH POC ABG pCO2 POC ABG pO2 ABG pO2 ABG HCO3 ABG Base Excess ABG Hemoglobin Oxyhemoglobin Sodium 131 L Potassium Chloride 94.0 L Carbon Dioxide 20 L BUN 22 H Creatinine 2.0 H Glucose 123 H POC Glucose 166 H 179 H Lactic Acid Calcium 7.7 L Phosphorus 2.20 L D Magnesium Direct Bilirubin AST ALT Alkaline Phosphatase Lactate Dehydrogenase Troponin T C-Reactive Protein Total Protein Albumin Prealbumin Triglycerides Cholesterol LDL Cholesterol Direct HDL Cholesterol Urine pH Urine WBC (Auto) Urine Creatinine Urine Total Protein Fluid Total Protein Vancomycin Trough Rheumatoid Factor Complement C4 Miscellaneous Test Crossmatch 10/05/16 10/05/16 10/05/16 15:50 18:53 23:12 WBC RBC Hgb Hct MCV MCH MCHC RDW Plt Count Lymph % (Auto) [place] % (Auto) Lymph # [place] # Baso # Seg Neutrophils % Seg Neuts % (Manual) Lymphocytes % (Manual) Monocytes % (Manual) Eosinophils % (Manual) Basophils % (Manual) Nucleated RBC % Seg Neutrophils # Seg Neutrophils # Man Lymphocytes # (Manual) Monocytes # (Manual) Eosinophils # (Manual) Basophils # (Manual) PT INR Fibrinogen dRVVT Confirm Interp Factor V Activity POC ABG pH POC ABG pCO2 POC ABG pO2 ABG pO2 ABG HCO3 ABG Base Excess ABG Hemoglobin Oxyhemoglobin Sodium Potassium Chloride Carbon Dioxide BUN Creatinine Glucose POC Glucose 150 H 164 H Lactic Acid Calcium Phosphorus Magnesium Direct Bilirubin AST ALT Alkaline Phosphatase Lactate Dehydrogenase Troponin T C-Reactive Protein Total Protein Albumin Prealbumin Triglycerides Cholesterol LDL Cholesterol Direct HDL Cholesterol Urine pH Urine WBC (Auto) Urine Creatinine Urine Total Protein Fluid Total Protein Vancomycin Trough Rheumatoid Factor Complement C4 Miscellaneous Test Crossmatch See Detail 10/06/16 10/06/16 10/06/16 03:50 03:50 04:53 WBC RBC 3.00 L Hgb 8.6 L Hct 25.8 L MCV MCH MCHC RDW 17.9 H Plt Count 65 L Lymph % (Auto) [place] % (Auto) Lymph # [place] # Baso # Seg Neutrophils % Seg Neuts % (Manual) 30.0 L Lymphocytes % (Manual) 5.0 L Monocytes % (Manual) Eosinophils % (Manual) Basophils % (Manual) Nucleated RBC % Seg Neutrophils # Seg Neutrophils # Man Lymphocytes # (Manual) 0.4 L Monocytes # (Manual) Eosinophils # (Manual) Basophils # (Manual) PT INR Fibrinogen dRVVT Confirm Interp Factor V Activity POC ABG pH 7.310 L POC ABG pCO2 49.0 H POC ABG pO2 ABG pO2 ABG HCO3 ABG Base Excess ABG Hemoglobin Oxyhemoglobin Sodium 133 L Potassium Chloride 95.9 L Carbon Dioxide BUN 26 H Creatinine 2.0 H Glucose 116 H POC Glucose Lactic Acid Calcium 7.8 L Phosphorus Magnesium Direct Bilirubin AST ALT Alkaline Phosphatase Lactate Dehydrogenase Troponin T C-Reactive Protein Total Protein Albumin Prealbumin Triglycerides Cholesterol LDL Cholesterol Direct HDL Cholesterol Urine pH Urine WBC (Auto) Urine Creatinine Urine Total Protein Fluid Total Protein Vancomycin Trough Rheumatoid Factor Complement C4 Miscellaneous Test Crossmatch 10/06/16 10/06/16 10/06/16 05:23 11:52 18:34 WBC RBC Hgb Hct MCV MCH MCHC RDW Plt Count Lymph % (Auto) [place] % (Auto) Lymph # [place] # Baso # Seg Neutrophils % Seg Neuts % (Manual) Lymphocytes % (Manual) Monocytes % (Manual) Eosinophils % (Manual) Basophils % (Manual) Nucleated RBC % Seg Neutrophils # Seg Neutrophils # Man Lymphocytes # (Manual) Monocytes # (Manual) Eosinophils # (Manual) Basophils # (Manual) PT INR Fibrinogen dRVVT Confirm Interp Factor V Activity POC ABG pH POC ABG pCO2 POC ABG pO2 ABG pO2 ABG HCO3 ABG Base Excess ABG Hemoglobin Oxyhemoglobin Sodium Potassium Chloride Carbon Dioxide BUN Creatinine Glucose POC Glucose 126 H 116 H 129 H Lactic Acid Calcium Phosphorus Magnesium Direct Bilirubin AST ALT Alkaline Phosphatase Lactate Dehydrogenase Troponin T C-Reactive Protein Total Protein Albumin Prealbumin Triglycerides Cholesterol LDL Cholesterol Direct HDL Cholesterol Urine pH Urine WBC (Auto) Urine Creatinine Urine Total Protein Fluid Total Protein Vancomycin Trough Rheumatoid Factor Complement C4 Miscellaneous Test Crossmatch 10/07/16 10/07/16 10/07/16 03:45 05:00 10:00 WBC 17.0 H RBC 2.68 L Hgb 7.3 L Hct 25.3 L MCV MCH 27 L MCHC 29 L RDW 19.6 H Plt Count 74 L Lymph % (Auto) [place] % (Auto) Lymph # [place] # Baso # Seg Neutrophils % Seg Neuts % (Manual) Lymphocytes % (Manual) 12.0 L Monocytes % (Manual) Eosinophils % (Manual) Basophils % (Manual) Nucleated RBC % 4.0 H Seg Neutrophils # Seg Neutrophils # Man 10.7 H Lymphocytes # (Manual) Monocytes # (Manual) Eosinophils # (Manual) Basophils # (Manual) PT INR Fibrinogen dRVVT Confirm Interp Factor V Activity POC ABG pH POC ABG pCO2 POC ABG pO2 ABG pO2 ABG HCO3 ABG Base Excess ABG Hemoglobin Oxyhemoglobin Sodium 130 L Potassium 3.2 L Chloride 93.9 L Carbon Dioxide 20 L BUN 44 H Creatinine 2.7 H Glucose 129 H POC Glucose Lactic Acid Calcium 7.4 L Phosphorus Magnesium Direct Bilirubin AST ALT 6 L Alkaline Phosphatase 195 H Lactate Dehydrogenase Troponin T C-Reactive Protein Total Protein 4.9 L Albumin 1.0 L Prealbumin Triglycerides Cholesterol LDL Cholesterol Direct HDL Cholesterol Urine pH Urine WBC (Auto) Urine Creatinine Urine Total Protein Fluid Total Protein Vancomycin Trough Rheumatoid Factor Complement C4 Miscellaneous Test Flexitest 1 H Crossmatch 10/07/16 10/07/16 10/07/16 10:00 11:24 18:10 WBC RBC Hgb Hct MCV MCH MCHC RDW Plt Count Lymph % (Auto) [place] % (Auto) Lymph # [place] # Baso # Seg Neutrophils % Seg Neuts % (Manual) Lymphocytes % (Manual) Monocytes % (Manual) Eosinophils % (Manual) Basophils % (Manual) Nucleated RBC % Seg Neutrophils # Seg Neutrophils # Man Lymphocytes # (Manual) Monocytes # (Manual) Eosinophils # (Manual) Basophils # (Manual) PT INR Fibrinogen dRVVT Confirm Interp Factor V Activity POC ABG pH POC ABG pCO2 POC ABG pO2 ABG pO2 ABG HCO3 ABG Base Excess ABG Hemoglobin Oxyhemoglobin Sodium Potassium Chloride Carbon Dioxide BUN Creatinine Glucose POC Glucose 116 H 130 H Lactic Acid Calcium Phosphorus Magnesium Direct Bilirubin AST ALT Alkaline Phosphatase Lactate Dehydrogenase Troponin T C-Reactive Protein 19.40 H Total Protein Albumin Prealbumin Triglycerides Cholesterol LDL Cholesterol Direct HDL Cholesterol Urine pH Urine WBC (Auto) Urine Creatinine Urine Total Protein Fluid Total Protein Vancomycin Trough Rheumatoid Factor Complement C4 Miscellaneous Test Crossmatch 10/07/16 10/08/16 10/08/16 18:30 00:00 04:00 WBC RBC Hgb Hct MCV MCH MCHC RDW Plt Count Lymph % (Auto) [place] % (Auto) Lymph # [place] # Baso # Seg Neutrophils % Seg Neuts % (Manual) Lymphocytes % (Manual) Monocytes % (Manual) Eosinophils % (Manual) Basophils % (Manual) Nucleated RBC % Seg Neutrophils # Seg Neutrophils # Man Lymphocytes # (Manual) Monocytes # (Manual) Eosinophils # (Manual) Basophils # (Manual) PT INR Fibrinogen dRVVT Confirm Interp Factor V Activity POC ABG pH POC ABG pCO2 POC ABG pO2 ABG pO2 ABG HCO3 ABG Base Excess ABG Hemoglobin Oxyhemoglobin Sodium 132 L Potassium 3.3 L Chloride 93.6 L Carbon Dioxide 17 L BUN 59 H Creatinine 2.7 H Glucose 121 H POC Glucose 122 H Lactic Acid Calcium 7.6 L Phosphorus Magnesium Direct Bilirubin AST ALT Alkaline Phosphatase Lactate Dehydrogenase Troponin T C-Reactive Protein Total Protein Albumin Prealbumin Triglycerides Cholesterol LDL Cholesterol Direct HDL Cholesterol Urine pH Urine WBC (Auto) > 182.0 H Urine Creatinine Urine Total Protein Fluid Total Protein Vancomycin Trough Rheumatoid Factor Complement C4 Miscellaneous Test Crossmatch 10/08/16 10/08/16 10/08/16 04:30 05:30 11:51 WBC RBC 5.15 H Hgb 14.4 H D Hct 44.5 H D MCV MCH MCHC RDW 19.5 H Plt Count 56 L Lymph % (Auto) [place] % (Auto) Lymph # [place] # Baso # Seg Neutrophils % Seg Neuts % (Manual) 24.0 L Lymphocytes % (Manual) 8.0 L Monocytes % (Manual) Eosinophils % (Manual) Basophils % (Manual) Nucleated RBC % 9.0 H Seg Neutrophils # Seg Neutrophils # Man Lymphocytes # (Manual) 0.7 L Monocytes # (Manual) Eosinophils # (Manual) Basophils # (Manual) PT INR Fibrinogen dRVVT Confirm Interp Factor V Activity POC ABG pH POC ABG pCO2 POC ABG pO2 ABG pO2 ABG HCO3 ABG Base Excess ABG Hemoglobin Oxyhemoglobin Sodium Potassium Chloride Carbon Dioxide BUN Creatinine Glucose POC Glucose 125 H 150 H Lactic Acid Calcium Phosphorus Magnesium Direct Bilirubin AST ALT Alkaline Phosphatase Lactate Dehydrogenase Troponin T C-Reactive Protein Total Protein Albumin Prealbumin Triglycerides Cholesterol LDL Cholesterol Direct HDL Cholesterol Urine pH Urine WBC (Auto) Urine Creatinine Urine Total Protein Fluid Total Protein Vancomycin Trough Rheumatoid Factor Complement C4 Miscellaneous Test Crossmatch 10/08/16 10/08/16 10/08/16 12:49 17:07 19:30 WBC RBC Hgb 7.1 L D Hct 22.4 L D MCV MCH MCHC RDW Plt Count Lymph % (Auto) [place] % (Auto) Lymph # [place] # Baso # Seg Neutrophils % Seg Neuts % (Manual) Lymphocytes % (Manual) Monocytes % (Manual) Eosinophils % (Manual) Basophils % (Manual) Nucleated RBC % Seg Neutrophils # Seg Neutrophils # Man Lymphocytes # (Manual) Monocytes # (Manual) Eosinophils # (Manual) Basophils # (Manual) PT INR Fibrinogen dRVVT Confirm Interp Factor V Activity POC ABG pH POC ABG pCO2 28.2 L POC ABG pO2 111 H ABG pO2 ABG HCO3 ABG Base Excess ABG Hemoglobin Oxyhemoglobin Sodium Potassium Chloride Carbon Dioxide BUN Creatinine Glucose POC Glucose 145 H Lactic Acid Calcium Phosphorus Magnesium Direct Bilirubin AST ALT Alkaline Phosphatase Lactate Dehydrogenase Troponin T C-Reactive Protein Total Protein Albumin Prealbumin Triglycerides Cholesterol LDL Cholesterol Direct HDL Cholesterol Urine pH Urine WBC (Auto) Urine Creatinine Urine Total Protein Fluid Total Protein Vancomycin Trough Rheumatoid Factor Complement C4 Miscellaneous Test Crossmatch 10/08/16 10/09/16 10/09/16 19:30 03:45 03:45 WBC 12.6 H RBC 2.36 L Hgb 6.7 L Hct 21.1 L MCV MCH MCHC RDW 19.5 H Plt Count 75 L Lymph % (Auto) [place] % (Auto) Lymph # [place] # Baso # Seg Neutrophils % Seg Neuts % (Manual) Lymphocytes % (Manual) Monocytes % (Manual) 10.0 H Eosinophils % (Manual) Basophils % (Manual) Nucleated RBC % 3.0 H Seg Neutrophils # Seg Neutrophils # Man Lymphocytes # (Manual) Monocytes # (Manual) 1.3 H Eosinophils # (Manual) Basophils # (Manual) PT 18.0 H INR 1.41 H Fibrinogen dRVVT Confirm Interp Factor V Activity POC ABG pH POC ABG pCO2 POC ABG pO2 ABG pO2 ABG HCO3 ABG Base Excess ABG Hemoglobin Oxyhemoglobin Sodium 135 L Potassium Chloride Carbon Dioxide 17 L BUN 81 H Creatinine 3.2 H Glucose 109 H POC Glucose Lactic Acid Calcium 7.4 L Phosphorus 4.60 H D Magnesium Direct Bilirubin AST ALT Alkaline Phosphatase Lactate Dehydrogenase Troponin T C-Reactive Protein Total Protein Albumin Prealbumin Triglycerides Cholesterol LDL Cholesterol Direct HDL Cholesterol Urine pH Urine WBC (Auto) Urine Creatinine Urine Total Protein Fluid Total Protein Vancomycin Trough Rheumatoid Factor Complement C4 Miscellaneous Test Crossmatch 10/09/16 10/09/16 10/09/16 03:45 05:14 07:20 WBC RBC Hgb Hct MCV MCH MCHC RDW Plt Count Lymph % (Auto) [place] % (Auto) Lymph # [place] # Baso # Seg Neutrophils % Seg Neuts % (Manual) Lymphocytes % (Manual) Monocytes % (Manual) Eosinophils % (Manual) Basophils % (Manual) Nucleated RBC % Seg Neutrophils # Seg Neutrophils # Man Lymphocytes # (Manual) Monocytes # (Manual) Eosinophils # (Manual) Basophils # (Manual) PT 19.0 H INR 1.51 H Fibrinogen dRVVT Confirm Interp Factor V Activity POC ABG pH POC ABG pCO2 POC ABG pO2 ABG pO2 ABG HCO3 ABG Base Excess ABG Hemoglobin Oxyhemoglobin Sodium Potassium Chloride Carbon Dioxide BUN Creatinine Glucose POC Glucose 151 H Lactic Acid Calcium Phosphorus Magnesium Direct Bilirubin AST ALT Alkaline Phosphatase Lactate Dehydrogenase Troponin T C-Reactive Protein Total Protein Albumin Prealbumin Triglycerides Cholesterol LDL Cholesterol Direct HDL Cholesterol Urine pH Urine WBC (Auto) Urine Creatinine Urine Total Protein Fluid Total Protein Vancomycin Trough Rheumatoid Factor Complement C4 Miscellaneous Test Crossmatch See Detail 10/09/16 10/09/16 10/09/16 11:46 16:20 16:43 WBC RBC Hgb 7.2 L Hct 22.2 L MCV MCH MCHC RDW Plt Count Lymph % (Auto) [place] % (Auto) Lymph # [place] # Baso # Seg Neutrophils % Seg Neuts % (Manual) Lymphocytes % (Manual) Monocytes % (Manual) Eosinophils % (Manual) Basophils % (Manual) Nucleated RBC % Seg Neutrophils # Seg Neutrophils # Man Lymphocytes # (Manual) Monocytes # (Manual) Eosinophils # (Manual) Basophils # (Manual) PT INR Fibrinogen dRVVT Confirm Interp Factor V Activity POC ABG pH POC ABG pCO2 POC ABG pO2 ABG pO2 ABG HCO3 ABG Base Excess ABG Hemoglobin Oxyhemoglobin Sodium Potassium Chloride Carbon Dioxide BUN Creatinine Glucose POC Glucose 133 H 141 H Lactic Acid Calcium Phosphorus Magnesium Direct Bilirubin AST ALT Alkaline Phosphatase Lactate Dehydrogenase Troponin T C-Reactive Protein Total Protein Albumin Prealbumin Triglycerides Cholesterol LDL Cholesterol Direct HDL Cholesterol Urine pH Urine WBC (Auto) Urine Creatinine Urine Total Protein Fluid Total Protein Vancomycin Trough Rheumatoid Factor Complement C4 Miscellaneous Test Crossmatch 10/10/16 10/10/16 10/10/16 05:00 05:00 11:19 WBC 18.5 H RBC 2.19 L Hgb 6.4 L Hct 19.6 L* MCV MCH MCHC RDW 19.3 H Plt Count 93 L Lymph % (Auto) [place] % (Auto) Lymph # [place] # Baso # Seg Neutrophils % Seg Neuts % (Manual) Lymphocytes % (Manual) 10.0 L Monocytes % (Manual) Eosinophils % (Manual) Basophils % (Manual) Nucleated RBC % 4.0 H Seg Neutrophils # Seg Neutrophils # Man 11.3 H Lymphocytes # (Manual) Monocytes # (Manual) Eosinophils # (Manual) Basophils # (Manual) PT INR Fibrinogen dRVVT Confirm Interp Factor V Activity POC ABG pH POC ABG pCO2 POC ABG pO2 ABG pO2 ABG HCO3 ABG Base Excess ABG Hemoglobin Oxyhemoglobin Sodium Potassium 5.7 H D Chloride Carbon Dioxide 16 L BUN 94 H Creatinine 3.1 H Glucose 131 H POC Glucose 153 H Lactic Acid Calcium 8.2 L Phosphorus 5.10 H Magnesium 2.40 H Direct Bilirubin 0.3 H AST ALT < 5 L Alkaline Phosphatase 319 H Lactate Dehydrogenase Troponin T C-Reactive Protein Total Protein 5.1 L Albumin 1.0 L Prealbumin Triglycerides Cholesterol LDL Cholesterol Direct HDL Cholesterol Urine pH Urine WBC (Auto) Urine Creatinine Urine Total Protein Fluid Total Protein Vancomycin Trough Rheumatoid Factor Complement C4 Miscellaneous Test Crossmatch 10/10/16 10/10/16 10/11/16 17:50 23:30 04:15 WBC RBC Hgb Hct MCV MCH MCHC RDW Plt Count Lymph % (Auto) [place] % (Auto) Lymph # [place] # Baso # Seg Neutrophils % Seg Neuts % (Manual) Lymphocytes % (Manual) Monocytes % (Manual) Eosinophils % (Manual) Basophils % (Manual) Nucleated RBC % Seg Neutrophils # Seg Neutrophils # Man Lymphocytes # (Manual) Monocytes # (Manual) Eosinophils # (Manual) Basophils # (Manual) PT INR Fibrinogen dRVVT Confirm Interp Factor V Activity POC ABG pH POC ABG pCO2 POC ABG pO2 ABG pO2 ABG HCO3 ABG Base Excess ABG Hemoglobin Oxyhemoglobin Sodium Potassium Chloride 96.4 L Carbon Dioxide 21 L BUN 57 H Creatinine 2.1 H Glucose 151 H POC Glucose 146 H 141 H Lactic Acid Calcium 8.3 L Phosphorus Magnesium Direct Bilirubin AST ALT Alkaline Phosphatase Lactate Dehydrogenase Troponin T C-Reactive Protein Total Protein Albumin Prealbumin Triglycerides Cholesterol LDL Cholesterol Direct HDL Cholesterol Urine pH Urine WBC (Auto) Urine Creatinine Urine Total Protein Fluid Total Protein Vancomycin Trough Rheumatoid Factor Complement C4 Miscellaneous Test Crossmatch 10/11/16 10/11/16 10/11/16 04:15 04:15 05:30 WBC 28.3 H RBC 3.12 L Hgb 9.3 L Hct 28.7 L D MCV MCH MCHC RDW 17.7 H Plt Count 128 L Lymph % (Auto) [place] % (Auto) Lymph # [place] # Baso # Seg Neutrophils % Seg Neuts % (Manual) Lymphocytes % (Manual) Monocytes % (Manual) Eosinophils % (Manual) Basophils % (Manual) Nucleated RBC % Seg Neutrophils # Seg Neutrophils # Man Lymphocytes # (Manual) Monocytes # (Manual) Eosinophils # (Manual) Basophils # (Manual) PT INR Fibrinogen dRVVT Confirm Interp Factor V Activity POC ABG pH POC ABG pCO2 POC ABG pO2 ABG pO2 ABG HCO3 ABG Base Excess ABG Hemoglobin Oxyhemoglobin Sodium Potassium Chloride Carbon Dioxide BUN Creatinine Glucose POC Glucose 167 H Lactic Acid Calcium Phosphorus Magnesium Direct Bilirubin AST ALT Alkaline Phosphatase Lactate Dehydrogenase Troponin T C-Reactive Protein 15.80 H Total Protein Albumin Prealbumin Triglycerides Cholesterol LDL Cholesterol Direct HDL Cholesterol Urine pH Urine WBC (Auto) Urine Creatinine Urine Total Protein Fluid Total Protein Vancomycin Trough Rheumatoid Factor Complement C4 Miscellaneous Test Crossmatch 10/11/16 10/11/16 10/11/16 11:40 15:49 23:57 WBC RBC Hgb Hct MCV MCH MCHC RDW Plt Count Lymph % (Auto) [place] % (Auto) Lymph # [place] # Baso # Seg Neutrophils % Seg Neuts % (Manual) Lymphocytes % (Manual) Monocytes % (Manual) Eosinophils % (Manual) Basophils % (Manual) Nucleated RBC % Seg Neutrophils # Seg Neutrophils # Man Lymphocytes # (Manual) Monocytes # (Manual) Eosinophils # (Manual) Basophils # (Manual) PT INR Fibrinogen dRVVT Confirm Interp Factor V Activity POC ABG pH POC ABG pCO2 POC ABG pO2 ABG pO2 ABG HCO3 ABG Base Excess ABG Hemoglobin Oxyhemoglobin Sodium Potassium Chloride Carbon Dioxide BUN Creatinine Glucose POC Glucose 139 H 168 H 161 H Lactic Acid Calcium Phosphorus Magnesium Direct Bilirubin AST ALT Alkaline Phosphatase Lactate Dehydrogenase Troponin T C-Reactive Protein Total Protein Albumin Prealbumin Triglycerides Cholesterol LDL Cholesterol Direct HDL Cholesterol Urine pH Urine WBC (Auto) Urine Creatinine Urine Total Protein Fluid Total Protein Vancomycin Trough Rheumatoid Factor Complement C4 Miscellaneous Test Crossmatch 10/12/16 10/12/16 10/12/16 04:40 04:40 05:44 WBC 22.5 H RBC 2.88 L Hgb 8.8 L Hct 26.8 L MCV MCH MCHC RDW 17.8 H Plt Count Lymph % (Auto) [place] % (Auto) Lymph # [place] # Baso # Seg Neutrophils % Seg Neuts % (Manual) Lymphocytes % (Manual) Monocytes % (Manual) Eosinophils % (Manual) Basophils % (Manual) Nucleated RBC % Seg Neutrophils # Seg Neutrophils # Man Lymphocytes # (Manual) Monocytes # (Manual) Eosinophils # (Manual) Basophils # (Manual) PT INR Fibrinogen dRVVT Confirm Interp Factor V Activity POC ABG pH POC ABG pCO2 POC ABG pO2 ABG pO2 ABG HCO3 ABG Base Excess ABG Hemoglobin Oxyhemoglobin Sodium 134 L Potassium Chloride 93.0 L Carbon Dioxide BUN 74 H Creatinine 2.5 H Glucose 137 H POC Glucose 158 H Lactic Acid Calcium 8.2 L Phosphorus Magnesium Direct Bilirubin AST ALT Alkaline Phosphatase Lactate Dehydrogenase Troponin T C-Reactive Protein Total Protein Albumin Prealbumin Triglycerides Cholesterol LDL Cholesterol Direct HDL Cholesterol Urine pH Urine WBC (Auto) Urine Creatinine Urine Total Protein Fluid Total Protein Vancomycin Trough Rheumatoid Factor Complement C4 Miscellaneous Test Crossmatch 10/12/16 10/12/16 10/12/16 12:27 18:18 23:46 WBC RBC Hgb Hct MCV MCH MCHC RDW Plt Count Lymph % (Auto) [place] % (Auto) Lymph # [place] # Baso # Seg Neutrophils % Seg Neuts % (Manual) Lymphocytes % (Manual) Monocytes % (Manual) Eosinophils % (Manual) Basophils % (Manual) Nucleated RBC % Seg Neutrophils # Seg Neutrophils # Man Lymphocytes # (Manual) Monocytes # (Manual) Eosinophils # (Manual) Basophils # (Manual) PT INR Fibrinogen dRVVT Confirm Interp Factor V Activity POC ABG pH POC ABG pCO2 POC ABG pO2 ABG pO2 ABG HCO3 ABG Base Excess ABG Hemoglobin Oxyhemoglobin Sodium Potassium Chloride Carbon Dioxide BUN Creatinine Glucose POC Glucose 153 H 140 H 150 H Lactic Acid Calcium Phosphorus Magnesium Direct Bilirubin AST ALT Alkaline Phosphatase Lactate Dehydrogenase Troponin T C-Reactive Protein Total Protein Albumin Prealbumin Triglycerides Cholesterol LDL Cholesterol Direct HDL Cholesterol Urine pH Urine WBC (Auto) Urine Creatinine Urine Total Protein Fluid Total Protein Vancomycin Trough Rheumatoid Factor Complement C4 Miscellaneous Test Crossmatch 10/13/16 10/13/16 10/13/16 06:22 09:20 12:29 WBC RBC Hgb Hct MCV MCH MCHC RDW Plt Count Lymph % (Auto) [place] % (Auto) Lymph # [place] # Baso # Seg Neutrophils % Seg Neuts % (Manual) Lymphocytes % (Manual) Monocytes % (Manual) Eosinophils % (Manual) Basophils % (Manual) Nucleated RBC % Seg Neutrophils # Seg Neutrophils # Man Lymphocytes # (Manual) Monocytes # (Manual) Eosinophils # (Manual) Basophils # (Manual) PT INR Fibrinogen dRVVT Confirm Interp Factor V Activity POC ABG pH POC ABG pCO2 POC ABG pO2 ABG pO2 ABG HCO3 ABG Base Excess ABG Hemoglobin Oxyhemoglobin Sodium Potassium Chloride Carbon Dioxide BUN Creatinine Glucose POC Glucose 165 H 193 H Lactic Acid Calcium Phosphorus Magnesium Direct Bilirubin AST ALT Alkaline Phosphatase Lactate Dehydrogenase Troponin T C-Reactive Protein Total Protein Albumin Prealbumin Triglycerides Cholesterol LDL Cholesterol Direct HDL Cholesterol Urine pH Urine WBC (Auto) Urine Creatinine Urine Total Protein Fluid Total Protein Vancomycin Trough Rheumatoid Factor Complement C4 Miscellaneous Test Flexitest 1 H Crossmatch 10/13/16 10/13/16 10/13/16 18:09 Unknown Unknown WBC 23.4 H RBC 2.83 L Hgb 8.7 L Hct 26.1 L MCV MCH MCHC RDW 18.1 H Plt Count Lymph % (Auto) [place] % (Auto) Lymph # [place] # Baso # Seg Neutrophils % Seg Neuts % (Manual) Lymphocytes % (Manual) Monocytes % (Manual) Eosinophils % (Manual) Basophils % (Manual) Nucleated RBC % Seg Neutrophils # Seg Neutrophils # Man Lymphocytes # (Manual) Monocytes # (Manual) Eosinophils # (Manual) Basophils # (Manual) PT INR Fibrinogen dRVVT Confirm Interp Factor V Activity POC ABG pH POC ABG pCO2 POC ABG pO2 ABG pO2 ABG HCO3 ABG Base Excess ABG Hemoglobin Oxyhemoglobin Sodium Potassium Chloride 95.8 L Carbon Dioxide BUN 82 H Creatinine 2.6 H Glucose 152 H POC Glucose 166 H Lactic Acid Calcium Phosphorus Magnesium Direct Bilirubin AST ALT Alkaline Phosphatase Lactate Dehydrogenase Troponin T C-Reactive Protein Total Protein Albumin Prealbumin Triglycerides Cholesterol LDL Cholesterol Direct HDL Cholesterol Urine pH Urine WBC (Auto) Urine Creatinine Urine Total Protein Fluid Total Protein Vancomycin Trough Rheumatoid Factor Complement C4 Miscellaneous Test Crossmatch 10/14/16 10/14/16 10/14/16 05:38 06:35 08:10 WBC 20.7 H RBC 2.81 L Hgb 8.4 L Hct 27.2 L MCV MCH MCHC RDW 19.4 H Plt Count Lymph % (Auto) [place] % (Auto) Lymph # [place] # Baso # Seg Neutrophils % Seg Neuts % (Manual) Lymphocytes % (Manual) Monocytes % (Manual) Eosinophils % (Manual) Basophils % (Manual) Nucleated RBC % Seg Neutrophils # Seg Neutrophils # Man Lymphocytes # (Manual) Monocytes # (Manual) Eosinophils # (Manual) Basophils # (Manual) PT INR Fibrinogen dRVVT Confirm Interp Factor V Activity POC ABG pH POC ABG pCO2 POC ABG pO2 ABG pO2 ABG HCO3 ABG Base Excess ABG Hemoglobin Oxyhemoglobin Sodium Potassium Chloride Carbon Dioxide BUN 58 H Creatinine 1.9 H Glucose 169 H POC Glucose 195 H Lactic Acid Calcium Phosphorus Magnesium Direct Bilirubin AST ALT Alkaline Phosphatase Lactate Dehydrogenase Troponin T C-Reactive Protein Total Protein Albumin Prealbumin Triglycerides Cholesterol LDL Cholesterol Direct HDL Cholesterol Urine pH Urine WBC (Auto) Urine Creatinine Urine Total Protein Fluid Total Protein Vancomycin Trough Rheumatoid Factor Complement C4 Miscellaneous Test Crossmatch 10/14/16 10/14/16 10/14/16 11:44 17:13 23:28 WBC RBC Hgb Hct MCV MCH MCHC RDW Plt Count Lymph % (Auto) [place] % (Auto) Lymph # [place] # Baso # Seg Neutrophils % Seg Neuts % (Manual) Lymphocytes % (Manual) Monocytes % (Manual) Eosinophils % (Manual) Basophils % (Manual) Nucleated RBC % Seg Neutrophils # Seg Neutrophils # Man Lymphocytes # (Manual) Monocytes # (Manual) Eosinophils # (Manual) Basophils # (Manual) PT INR Fibrinogen dRVVT Confirm Interp Factor V Activity POC ABG pH POC ABG pCO2 POC ABG pO2 ABG pO2 ABG HCO3 ABG Base Excess ABG Hemoglobin Oxyhemoglobin Sodium Potassium Chloride Carbon Dioxide BUN Creatinine Glucose POC Glucose 174 H 121 H 151 H Lactic Acid Calcium Phosphorus Magnesium Direct Bilirubin AST ALT Alkaline Phosphatase Lactate Dehydrogenase Troponin T C-Reactive Protein Total Protein Albumin Prealbumin Triglycerides Cholesterol LDL Cholesterol Direct HDL Cholesterol Urine pH Urine WBC (Auto) Urine Creatinine Urine Total Protein Fluid Total Protein Vancomycin Trough Rheumatoid Factor Complement C4 Miscellaneous Test Crossmatch 10/15/16 10/15/16 10/15/16 05:06 12:26 17:48 WBC RBC Hgb Hct MCV MCH MCHC RDW Plt Count Lymph % (Auto) [place] % (Auto) Lymph # [place] # Baso # Seg Neutrophils % Seg Neuts % (Manual) Lymphocytes % (Manual) Monocytes % (Manual) Eosinophils % (Manual) Basophils % (Manual) Nucleated RBC % Seg Neutrophils # Seg Neutrophils # Man Lymphocytes # (Manual) Monocytes # (Manual) Eosinophils # (Manual) Basophils # (Manual) PT INR Fibrinogen dRVVT Confirm Interp Factor V Activity POC ABG pH POC ABG pCO2 POC ABG pO2 ABG pO2 ABG HCO3 ABG Base Excess ABG Hemoglobin Oxyhemoglobin Sodium Potassium Chloride Carbon Dioxide BUN Creatinine Glucose POC Glucose 151 H 149 H 153 H Lactic Acid Calcium Phosphorus Magnesium Direct Bilirubin AST ALT Alkaline Phosphatase Lactate Dehydrogenase Troponin T C-Reactive Protein Total Protein Albumin Prealbumin Triglycerides Cholesterol LDL Cholesterol Direct HDL Cholesterol Urine pH Urine WBC (Auto) Urine Creatinine Urine Total Protein Fluid Total Protein Vancomycin Trough Rheumatoid Factor Complement C4 Miscellaneous Test Crossmatch 10/15/16 10/15/16 10/16/16 Unknown Unknown 00:02 WBC 23.4 H RBC 2.78 L Hgb 8.5 L Hct 25.7 L MCV MCH MCHC RDW 18.7 H Plt Count Lymph % (Auto) [place] % (Auto) Lymph # [place] # Baso # Seg Neutrophils % Seg Neuts % (Manual) Lymphocytes % (Manual) Monocytes % (Manual) Eosinophils % (Manual) Basophils % (Manual) Nucleated RBC % Seg Neutrophils # Seg Neutrophils # Man Lymphocytes # (Manual) Monocytes # (Manual) Eosinophils # (Manual) Basophils # (Manual) PT INR Fibrinogen dRVVT Confirm Interp Factor V Activity POC ABG pH POC ABG pCO2 POC ABG pO2 ABG pO2 ABG HCO3 ABG Base Excess ABG Hemoglobin Oxyhemoglobin Sodium Potassium Chloride Carbon Dioxide BUN 73 H Creatinine 2.3 H Glucose 120 H POC Glucose 137 H Lactic Acid Calcium Phosphorus Magnesium Direct Bilirubin AST ALT Alkaline Phosphatase Lactate Dehydrogenase Troponin T C-Reactive Protein Total Protein Albumin Prealbumin Triglycerides Cholesterol LDL Cholesterol Direct HDL Cholesterol Urine pH Urine WBC (Auto) Urine Creatinine Urine Total Protein Fluid Total Protein Vancomycin Trough Rheumatoid Factor Complement C4 Miscellaneous Test Crossmatch 10/16/16 10/16/16 10/16/16 05:44 06:25 06:25 WBC 22.5 H RBC 2.76 L Hgb 8.3 L Hct 25.2 L MCV MCH MCHC RDW 18.3 H Plt Count Lymph % (Auto) [place] % (Auto) Lymph # [place] # Baso # Seg Neutrophils % Seg Neuts % (Manual) Lymphocytes % (Manual) Monocytes % (Manual) Eosinophils % (Manual) Basophils % (Manual) Nucleated RBC % Seg Neutrophils # Seg Neutrophils # Man Lymphocytes # (Manual) Monocytes # (Manual) Eosinophils # (Manual) Basophils # (Manual) PT INR Fibrinogen dRVVT Confirm Interp Factor V Activity POC ABG pH POC ABG pCO2 POC ABG pO2 ABG pO2 ABG HCO3 ABG Base Excess ABG Hemoglobin Oxyhemoglobin Sodium Potassium Chloride Carbon Dioxide BUN 92 H Creatinine 3.0 H Glucose 138 H POC Glucose 110 H Lactic Acid Calcium Phosphorus Magnesium Direct Bilirubin AST ALT Alkaline Phosphatase Lactate Dehydrogenase Troponin T C-Reactive Protein Total Protein Albumin Prealbumin Triglycerides Cholesterol LDL Cholesterol Direct HDL Cholesterol Urine pH Urine WBC (Auto) Urine Creatinine Urine Total Protein Fluid Total Protein Vancomycin Trough Rheumatoid Factor Complement C4 Miscellaneous Test Crossmatch 10/16/16 10/16/16 10/16/16 11:27 11:48 17:36 WBC RBC Hgb Hct MCV MCH MCHC RDW Plt Count Lymph % (Auto) [place] % (Auto) Lymph # [place] # Baso # Seg Neutrophils % Seg Neuts % (Manual) Lymphocytes % (Manual) Monocytes % (Manual) Eosinophils % (Manual) Basophils % (Manual) Nucleated RBC % Seg Neutrophils # Seg Neutrophils # Man Lymphocytes # (Manual) Monocytes # (Manual) Eosinophils # (Manual) Basophils # (Manual) PT INR Fibrinogen dRVVT Confirm Interp Factor V Activity POC ABG pH 7.582 H POC ABG pCO2 27.4 L POC ABG pO2 110 H ABG pO2 ABG HCO3 ABG Base Excess ABG Hemoglobin Oxyhemoglobin Sodium Potassium Chloride Carbon Dioxide BUN Creatinine Glucose POC Glucose 121 H 133 H Lactic Acid Calcium Phosphorus Magnesium Direct Bilirubin AST ALT Alkaline Phosphatase Lactate Dehydrogenase Troponin T C-Reactive Protein Total Protein Albumin Prealbumin Triglycerides Cholesterol LDL Cholesterol Direct HDL Cholesterol Urine pH Urine WBC (Auto) Urine Creatinine Urine Total Protein Fluid Total Protein Vancomycin Trough Rheumatoid Factor Complement C4 Miscellaneous Test Crossmatch 10/16/16 10/17/16 10/17/16 20:48 04:24 04:24 WBC 21.4 H RBC 2.72 L Hgb 8.0 L Hct 25.2 L MCV MCH MCHC RDW 18.0 H Plt Count Lymph % (Auto) [place] % (Auto) Lymph # [place] # Baso # Seg Neutrophils % Seg Neuts % (Manual) Lymphocytes % (Manual) Monocytes % (Manual) Eosinophils % (Manual) Basophils % (Manual) Nucleated RBC % Seg Neutrophils # Seg Neutrophils # Man Lymphocytes # (Manual) Monocytes # (Manual) Eosinophils # (Manual) Basophils # (Manual) PT INR Fibrinogen dRVVT Confirm Interp Factor V Activity POC ABG pH 7.561 H POC ABG pCO2 24.4 L POC ABG pO2 77 L ABG pO2 ABG HCO3 ABG Base Excess ABG Hemoglobin Oxyhemoglobin Sodium 148 H Potassium Chloride Carbon Dioxide BUN 104 H Creatinine 3.0 H Glucose 149 H POC Glucose Lactic Acid Calcium Phosphorus Magnesium Direct Bilirubin AST ALT Alkaline Phosphatase 138 H Lactate Dehydrogenase Troponin T C-Reactive Protein Total Protein 6.2 L Albumin 1.5 L Prealbumin Triglycerides Cholesterol LDL Cholesterol Direct HDL Cholesterol Urine pH Urine WBC (Auto) Urine Creatinine Urine Total Protein Fluid Total Protein Vancomycin Trough Rheumatoid Factor Complement C4 Miscellaneous Test Crossmatch 10/17/16 10/17/16 10/17/16 06:02 12:17 17:14 WBC RBC Hgb Hct MCV MCH MCHC RDW Plt Count Lymph % (Auto) [place] % (Auto) Lymph # [place] # Baso # Seg Neutrophils % Seg Neuts % (Manual) Lymphocytes % (Manual) Monocytes % (Manual) Eosinophils % (Manual) Basophils % (Manual) Nucleated RBC % Seg Neutrophils # Seg Neutrophils # Man Lymphocytes # (Manual) Monocytes # (Manual) Eosinophils # (Manual) Basophils # (Manual) PT INR Fibrinogen dRVVT Confirm Interp Factor V Activity POC ABG pH POC ABG pCO2 POC ABG pO2 ABG pO2 ABG HCO3 ABG Base Excess ABG Hemoglobin Oxyhemoglobin Sodium Potassium Chloride Carbon Dioxide BUN Creatinine Glucose POC Glucose 170 H 167 H 126 H Lactic Acid Calcium Phosphorus Magnesium Direct Bilirubin AST ALT Alkaline Phosphatase Lactate Dehydrogenase Troponin T C-Reactive Protein Total Protein Albumin Prealbumin Triglycerides Cholesterol LDL Cholesterol Direct HDL Cholesterol Urine pH Urine WBC (Auto) Urine Creatinine Urine Total Protein Fluid Total Protein Vancomycin Trough Rheumatoid Factor Complement C4 Miscellaneous Test Crossmatch 10/17/16 10/18/16 10/18/16 23:17 04:00 04:00 WBC 20.7 H RBC 2.47 L Hgb 7.4 L Hct 22.9 L MCV MCH MCHC RDW 17.5 H Plt Count Lymph % (Auto) [place] % (Auto) Lymph # [place] # Baso # Seg Neutrophils % Seg Neuts % (Manual) Lymphocytes % (Manual) Monocytes % (Manual) Eosinophils % (Manual) Basophils % (Manual) Nucleated RBC % Seg Neutrophils # Seg Neutrophils # Man Lymphocytes # (Manual) Monocytes # (Manual) Eosinophils # (Manual) Basophils # (Manual) PT INR Fibrinogen dRVVT Confirm Interp Factor V Activity POC ABG pH POC ABG pCO2 POC ABG pO2 ABG pO2 ABG HCO3 ABG Base Excess ABG Hemoglobin Oxyhemoglobin Sodium 149 H Potassium Chloride 107.9 H Carbon Dioxide 20 L BUN 117 H Creatinine 3.2 H Glucose 119 H POC Glucose 121 H Lactic Acid Calcium Phosphorus Magnesium Direct Bilirubin AST ALT Alkaline Phosphatase Lactate Dehydrogenase Troponin T C-Reactive Protein Total Protein Albumin Prealbumin Triglycerides Cholesterol LDL Cholesterol Direct HDL Cholesterol Urine pH Urine WBC (Auto) Urine Creatinine Urine Total Protein Fluid Total Protein Vancomycin Trough Rheumatoid Factor Complement C4 Miscellaneous Test Crossmatch 10/18/16 10/18/16 10/18/16 05:23 10:46 17:30 WBC RBC Hgb Hct MCV MCH MCHC RDW Plt Count Lymph % (Auto) [place] % (Auto) Lymph # [place] # Baso # Seg Neutrophils % Seg Neuts % (Manual) Lymphocytes % (Manual) Monocytes % (Manual) Eosinophils % (Manual) Basophils % (Manual) Nucleated RBC % Seg Neutrophils # Seg Neutrophils # Man Lymphocytes # (Manual) Monocytes # (Manual) Eosinophils # (Manual) Basophils # (Manual) PT INR Fibrinogen dRVVT Confirm Interp Factor V Activity POC ABG pH POC ABG pCO2 POC ABG pO2 ABG pO2 ABG HCO3 ABG Base Excess ABG Hemoglobin Oxyhemoglobin Sodium Potassium Chloride Carbon Dioxide BUN Creatinine Glucose POC Glucose 119 H 155 H 124 H Lactic Acid Calcium Phosphorus Magnesium Direct Bilirubin AST ALT Alkaline Phosphatase Lactate Dehydrogenase Troponin T C-Reactive Protein Total Protein Albumin Prealbumin Triglycerides Cholesterol LDL Cholesterol Direct HDL Cholesterol Urine pH Urine WBC (Auto) Urine Creatinine Urine Total Protein Fluid Total Protein Vancomycin Trough Rheumatoid Factor Complement C4 Miscellaneous Test Crossmatch 10/19/16 10/19/16 10/19/16 04:00 04:00 05:25 WBC 17.4 H RBC 2.54 L Hgb 7.7 L Hct 23.6 L MCV MCH MCHC RDW 17.3 H Plt Count Lymph % (Auto) [place] % (Auto) Lymph # [place] # Baso # Seg Neutrophils % Seg Neuts % (Manual) Lymphocytes % (Manual) Monocytes % (Manual) Eosinophils % (Manual) Basophils % (Manual) Nucleated RBC % Seg Neutrophils # Seg Neutrophils # Man Lymphocytes # (Manual) Monocytes # (Manual) Eosinophils # (Manual) Basophils # (Manual) PT INR Fibrinogen dRVVT Confirm Interp Factor V Activity POC ABG pH POC ABG pCO2 POC ABG pO2 ABG pO2 ABG HCO3 ABG Base Excess ABG Hemoglobin Oxyhemoglobin Sodium Potassium Chloride Carbon Dioxide BUN 72 H Creatinine 2.1 H Glucose 116 H POC Glucose 119 H Lactic Acid Calcium Phosphorus Magnesium Direct Bilirubin AST ALT Alkaline Phosphatase Lactate Dehydrogenase Troponin T C-Reactive Protein Total Protein Albumin Prealbumin Triglycerides Cholesterol LDL Cholesterol Direct HDL Cholesterol Urine pH Urine WBC (Auto) Urine Creatinine Urine Total Protein Fluid Total Protein Vancomycin Trough Rheumatoid Factor Complement C4 Miscellaneous Test Crossmatch 10/19/16 10/19/16 10/20/16 11:46 23:59 06:00 WBC RBC Hgb Hct MCV MCH MCHC RDW Plt Count Lymph % (Auto) [place] % (Auto) Lymph # [place] # Baso # Seg Neutrophils % Seg Neuts % (Manual) Lymphocytes % (Manual) Monocytes % (Manual) Eosinophils % (Manual) Basophils % (Manual) Nucleated RBC % Seg Neutrophils # Seg Neutrophils # Man Lymphocytes # (Manual) Monocytes # (Manual) Eosinophils # (Manual) Basophils # (Manual) PT INR Fibrinogen dRVVT Confirm Interp Factor V Activity POC ABG pH POC ABG pCO2 POC ABG pO2 ABG pO2 ABG HCO3 ABG Base Excess ABG Hemoglobin Oxyhemoglobin Sodium Potassium Chloride Carbon Dioxide 17 L BUN 94 H Creatinine 2.7 H Glucose POC Glucose 116 H 117 H Lactic Acid Calcium Phosphorus Magnesium Direct Bilirubin AST ALT Alkaline Phosphatase Lactate Dehydrogenase Troponin T C-Reactive Protein Total Protein Albumin Prealbumin Triglycerides Cholesterol LDL Cholesterol Direct HDL Cholesterol Urine pH Urine WBC (Auto) Urine Creatinine Urine Total Protein Fluid Total Protein Vancomycin Trough Rheumatoid Factor Complement C4 Miscellaneous Test Crossmatch 10/20/16 10/20/16 10/20/16 06:00 11:49 16:00 WBC 19.7 H RBC 2.51 L Hgb 7.7 L Hct 23.5 L MCV MCH MCHC RDW 17.5 H Plt Count Lymph % (Auto) [place] % (Auto) Lymph # [place] # Baso # Seg Neutrophils % Seg Neuts % (Manual) Lymphocytes % (Manual) Monocytes % (Manual) Eosinophils % (Manual) Basophils % (Manual) Nucleated RBC % Seg Neutrophils # Seg Neutrophils # Man Lymphocytes # (Manual) Monocytes # (Manual) Eosinophils # (Manual) Basophils # (Manual) PT INR Fibrinogen dRVVT Confirm Interp Factor V Activity POC ABG pH POC ABG pCO2 POC ABG pO2 ABG pO2 ABG HCO3 ABG Base Excess ABG Hemoglobin Oxyhemoglobin Sodium Potassium Chloride Carbon Dioxide BUN Creatinine Glucose POC Glucose 117 H Lactic Acid Calcium Phosphorus Magnesium Direct Bilirubin AST ALT Alkaline Phosphatase Lactate Dehydrogenase Troponin T C-Reactive Protein Total Protein Albumin Prealbumin Triglycerides Cholesterol LDL Cholesterol Direct HDL Cholesterol Urine pH Urine WBC (Auto) Urine Creatinine Urine Total Protein Fluid Total Protein Vancomycin Trough Rheumatoid Factor Complement C4 Miscellaneous Test Flexitest 1 H Crossmatch 10/20/16 10/20/16 10/21/16 18:36 23:39 04:00 WBC RBC Hgb Hct MCV MCH MCHC RDW Plt Count Lymph % (Auto) [place] % (Auto) Lymph # [place] # Baso # Seg Neutrophils % Seg Neuts % (Manual) Lymphocytes % (Manual) Monocytes % (Manual) Eosinophils % (Manual) Basophils % (Manual) Nucleated RBC % Seg Neutrophils # Seg Neutrophils # Man Lymphocytes # (Manual) Monocytes # (Manual) Eosinophils # (Manual) Basophils # (Manual) PT INR Fibrinogen dRVVT Confirm Interp Factor V Activity POC ABG pH POC ABG pCO2 POC ABG pO2 ABG pO2 ABG HCO3 ABG Base Excess ABG Hemoglobin Oxyhemoglobin Sodium Potassium 5.4 H D Chloride Carbon Dioxide 15 L BUN 110 H Creatinine 3.0 H Glucose POC Glucose 127 H 114 H Lactic Acid Calcium Phosphorus Magnesium Direct Bilirubin AST ALT Alkaline Phosphatase Lactate Dehydrogenase Troponin T C-Reactive Protein Total Protein Albumin Prealbumin Triglycerides Cholesterol LDL Cholesterol Direct HDL Cholesterol Urine pH Urine WBC (Auto) Urine Creatinine Urine Total Protein Fluid Total Protein Vancomycin Trough Rheumatoid Factor Complement C4 Miscellaneous Test Crossmatch 10/21/16 10/21/16 10/22/16 05:54 23:46 05:18 WBC RBC Hgb Hct MCV MCH MCHC RDW Plt Count Lymph % (Auto) [place] % (Auto) Lymph # [place] # Baso # Seg Neutrophils % Seg Neuts % (Manual) Lymphocytes % (Manual) Monocytes % (Manual) Eosinophils % (Manual) Basophils % (Manual) Nucleated RBC % Seg Neutrophils # Seg Neutrophils # Man Lymphocytes # (Manual) Monocytes # (Manual) Eosinophils # (Manual) Basophils # (Manual) PT INR Fibrinogen dRVVT Confirm Interp Factor V Activity POC ABG pH POC ABG pCO2 POC ABG pO2 ABG pO2 ABG HCO3 ABG Base Excess ABG Hemoglobin Oxyhemoglobin Sodium Potassium Chloride Carbon Dioxide BUN Creatinine Glucose POC Glucose 119 H 108 H 109 H Lactic Acid Calcium Phosphorus Magnesium Direct Bilirubin AST ALT Alkaline Phosphatase Lactate Dehydrogenase Troponin T C-Reactive Protein Total Protein Albumin Prealbumin Triglycerides Cholesterol LDL Cholesterol Direct HDL Cholesterol Urine pH Urine WBC (Auto) Urine Creatinine Urine Total Protein Fluid Total Protein Vancomycin Trough Rheumatoid Factor Complement C4 Miscellaneous Test Crossmatch 10/22/16 10/22/16 10/22/16 06:40 06:40 06:40 WBC 14.0 H RBC 2.03 L Hgb 7.0 L Hct 20.5 L MCV 98 H MCH 34 H MCHC 35 H RDW 17.8 H Plt Count Lymph % (Auto) [place] % (Auto) 9.9 H Lymph # [place] # 1.4 H Baso # 0.2 H Seg Neutrophils % 72.0 H Seg Neuts % (Manual) Lymphocytes % (Manual) Monocytes % (Manual) Eosinophils % (Manual) Basophils % (Manual) Nucleated RBC % Seg Neutrophils # 10.0 H Seg Neutrophils # Man Lymphocytes # (Manual) Monocytes # (Manual) Eosinophils # (Manual) Basophils # (Manual) PT INR Fibrinogen dRVVT Confirm Interp Factor V Activity POC ABG pH POC ABG pCO2 POC ABG pO2 ABG pO2 ABG HCO3 ABG Base Excess ABG Hemoglobin Oxyhemoglobin Sodium 130 L D Potassium Chloride 92.4 L Carbon Dioxide 20 L BUN 50 H Creatinine 1.6 H Glucose 589 H* POC Glucose Lactic Acid Calcium 7.8 L D Phosphorus Magnesium 1.60 L Direct Bilirubin AST ALT Alkaline Phosphatase Lactate Dehydrogenase Troponin T C-Reactive Protein Total Protein Albumin Prealbumin Triglycerides Cholesterol LDL Cholesterol Direct HDL Cholesterol Urine pH Urine WBC (Auto) Urine Creatinine Urine Total Protein Fluid Total Protein Vancomycin Trough Rheumatoid Factor Complement C4 Miscellaneous Test Crossmatch 10/22/16 10/22/16 10/22/16 11:39 16:44 23:36 WBC RBC Hgb Hct MCV MCH MCHC RDW Plt Count Lymph % (Auto) [place] % (Auto) Lymph # [place] # Baso # Seg Neutrophils % Seg Neuts % (Manual) Lymphocytes % (Manual) Monocytes % (Manual) Eosinophils % (Manual) Basophils % (Manual) Nucleated RBC % Seg Neutrophils # Seg Neutrophils # Man Lymphocytes # (Manual) Monocytes # (Manual) Eosinophils # (Manual) Basophils # (Manual) PT INR Fibrinogen dRVVT Confirm Interp Factor V Activity POC ABG pH POC ABG pCO2 POC ABG pO2 ABG pO2 ABG HCO3 ABG Base Excess ABG Hemoglobin Oxyhemoglobin Sodium Potassium Chloride Carbon Dioxide BUN Creatinine Glucose POC Glucose 142 H 163 H 123 H Lactic Acid Calcium Phosphorus Magnesium Direct Bilirubin AST ALT Alkaline Phosphatase Lactate Dehydrogenase Troponin T C-Reactive Protein Total Protein Albumin Prealbumin Triglycerides Cholesterol LDL Cholesterol Direct HDL Cholesterol Urine pH Urine WBC (Auto) Urine Creatinine Urine Total Protein Fluid Total Protein Vancomycin Trough Rheumatoid Factor Complement C4 Miscellaneous Test Crossmatch 10/23/16 10/23/16 10/23/16 04:58 06:00 12:12 WBC RBC Hgb Hct MCV MCH MCHC RDW Plt Count Lymph % (Auto) [place] % (Auto) Lymph # [place] # Baso # Seg Neutrophils % Seg Neuts % (Manual) Lymphocytes % (Manual) Monocytes % (Manual) Eosinophils % (Manual) Basophils % (Manual) Nucleated RBC % Seg Neutrophils # Seg Neutrophils # Man Lymphocytes # (Manual) Monocytes # (Manual) Eosinophils # (Manual) Basophils # (Manual) PT INR Fibrinogen dRVVT Confirm Interp Factor V Activity POC ABG pH POC ABG pCO2 POC ABG pO2 ABG pO2 ABG HCO3 ABG Base Excess ABG Hemoglobin Oxyhemoglobin Sodium 133 L Potassium 3.5 L Chloride 96.1 L Carbon Dioxide 18 L BUN 76 H Creatinine 2.1 H Glucose POC Glucose 133 H 138 H Lactic Acid Calcium 8.3 L Phosphorus Magnesium Direct Bilirubin AST ALT Alkaline Phosphatase Lactate Dehydrogenase Troponin T C-Reactive Protein Total Protein Albumin Prealbumin Triglycerides Cholesterol LDL Cholesterol Direct HDL Cholesterol Urine pH Urine WBC (Auto) Urine Creatinine Urine Total Protein Fluid Total Protein Vancomycin Trough Rheumatoid Factor Complement C4 Miscellaneous Test Crossmatch 10/23/16 10/23/16 10/24/16 16:53 23:37 04:00 WBC RBC Hgb Hct MCV MCH MCHC RDW Plt Count Lymph % (Auto) [place] % (Auto) Lymph # [place] # Baso # Seg Neutrophils % Seg Neuts % (Manual) Lymphocytes % (Manual) Monocytes % (Manual) Eosinophils % (Manual) Basophils % (Manual) Nucleated RBC % Seg Neutrophils # Seg Neutrophils # Man Lymphocytes # (Manual) Monocytes # (Manual) Eosinophils # (Manual) Basophils # (Manual) PT INR Fibrinogen dRVVT Confirm Interp Factor V Activity POC ABG pH POC ABG pCO2 POC ABG pO2 ABG pO2 ABG HCO3 ABG Base Excess ABG Hemoglobin Oxyhemoglobin Sodium 131 L Potassium Chloride 94.5 L Carbon Dioxide 19 L BUN 97 H Creatinine 2.6 H Glucose 110 H POC Glucose 125 H 123 H Lactic Acid Calcium 8.3 L Phosphorus Magnesium Direct Bilirubin AST ALT Alkaline Phosphatase Lactate Dehydrogenase Troponin T C-Reactive Protein Total Protein Albumin Prealbumin Triglycerides Cholesterol LDL Cholesterol Direct HDL Cholesterol Urine pH Urine WBC (Auto) Urine Creatinine Urine Total Protein Fluid Total Protein Vancomycin Trough Rheumatoid Factor Complement C4 Miscellaneous Test Crossmatch 10/24/16 10/24/16 10/24/16 07:49 11:39 17:52 WBC RBC Hgb 6.0 L Hct 19.7 L* MCV MCH MCHC RDW Plt Count Lymph % (Auto) [place] % (Auto) Lymph # [place] # Baso # Seg Neutrophils % Seg Neuts % (Manual) Lymphocytes % (Manual) Monocytes % (Manual) Eosinophils % (Manual) Basophils % (Manual) Nucleated RBC % Seg Neutrophils # Seg Neutrophils # Man Lymphocytes # (Manual) Monocytes # (Manual) Eosinophils # (Manual) Basophils # (Manual) PT INR Fibrinogen dRVVT Confirm Interp Factor V Activity POC ABG pH POC ABG pCO2 POC ABG pO2 ABG pO2 ABG HCO3 ABG Base Excess ABG Hemoglobin Oxyhemoglobin Sodium Potassium Chloride Carbon Dioxide BUN Creatinine Glucose POC Glucose 106 H 158 H Lactic Acid Calcium Phosphorus Magnesium Direct Bilirubin AST ALT Alkaline Phosphatase Lactate Dehydrogenase Troponin T C-Reactive Protein Total Protein Albumin Prealbumin Triglycerides Cholesterol LDL Cholesterol Direct HDL Cholesterol Urine pH Urine WBC (Auto) Urine Creatinine Urine Total Protein Fluid Total Protein Vancomycin Trough Rheumatoid Factor Complement C4 Miscellaneous Test Crossmatch 10/24/16 10/24/16 10/24/16 20:00 22:27 Unknown WBC RBC Hgb 9.4 L D Hct 27.5 L D MCV MCH MCHC RDW Plt Count Lymph % (Auto) [place] % (Auto) Lymph # [place] # Baso # Seg Neutrophils % Seg Neuts % (Manual) Lymphocytes % (Manual) Monocytes % (Manual) Eosinophils % (Manual) Basophils % (Manual) Nucleated RBC % Seg Neutrophils # Seg Neutrophils # Man Lymphocytes # (Manual) Monocytes # (Manual) Eosinophils # (Manual) Basophils # (Manual) PT INR Fibrinogen dRVVT Confirm Interp Factor V Activity POC ABG pH POC ABG pCO2 POC ABG pO2 ABG pO2 ABG HCO3 ABG Base Excess ABG Hemoglobin Oxyhemoglobin Sodium Potassium Chloride Carbon Dioxide BUN Creatinine Glucose POC Glucose 125 H Lactic Acid Calcium Phosphorus Magnesium Direct Bilirubin AST ALT Alkaline Phosphatase Lactate Dehydrogenase Troponin T C-Reactive Protein Total Protein Albumin Prealbumin Triglycerides Cholesterol LDL Cholesterol Direct HDL Cholesterol Urine pH Urine WBC (Auto) Urine Creatinine Urine Total Protein Fluid Total Protein Vancomycin Trough Rheumatoid Factor Complement C4 Miscellaneous Test Crossmatch See Detail 10/25/16 10/25/16 10/25/16 04:00 04:00 04:00 WBC 14.2 H RBC 2.98 L Hgb 9.0 L Hct 26.2 L MCV MCH MCHC RDW 16.6 H Plt Count Lymph % (Auto) [place] % (Auto) 10.7 H Lymph # [place] # 1.5 H Baso # Seg Neutrophils % 73.6 H Seg Neuts % (Manual) Lymphocytes % (Manual) Monocytes % (Manual) Eosinophils % (Manual) Basophils % (Manual) Nucleated RBC % Seg Neutrophils # 10.5 H Seg Neutrophils # Man Lymphocytes # (Manual) Monocytes # (Manual) Eosinophils # (Manual) Basophils # (Manual) PT INR Fibrinogen dRVVT Confirm Interp Factor V Activity POC ABG pH POC ABG pCO2 POC ABG pO2 ABG pO2 ABG HCO3 ABG Base Excess ABG Hemoglobin Oxyhemoglobin Sodium 132 L Potassium Chloride 94.7 L Carbon Dioxide BUN 51 H Creatinine 1.6 H Glucose 130 H POC Glucose Lactic Acid Calcium 8.3 L Phosphorus 1.60 L D Magnesium Direct Bilirubin AST ALT Alkaline Phosphatase Lactate Dehydrogenase Troponin T C-Reactive Protein Total Protein Albumin Prealbumin Triglycerides Cholesterol LDL Cholesterol Direct HDL Cholesterol Urine pH Urine WBC (Auto) Urine Creatinine Urine Total Protein Fluid Total Protein Vancomycin Trough Rheumatoid Factor Complement C4 Miscellaneous Test Crossmatch 10/25/16 10/25/16 10/25/16 04:32 11:48 17:22 WBC RBC Hgb Hct MCV MCH MCHC RDW Plt Count Lymph % (Auto) [place] % (Auto) Lymph # [place] # Baso # Seg Neutrophils % Seg Neuts % (Manual) Lymphocytes % (Manual) Monocytes % (Manual) Eosinophils % (Manual) Basophils % (Manual) Nucleated RBC % Seg Neutrophils # Seg Neutrophils # Man Lymphocytes # (Manual) Monocytes # (Manual) Eosinophils # (Manual) Basophils # (Manual) PT INR Fibrinogen dRVVT Confirm Interp Factor V Activity POC ABG pH POC ABG pCO2 POC ABG pO2 ABG pO2 ABG HCO3 ABG Base Excess ABG Hemoglobin Oxyhemoglobin Sodium Potassium Chloride Carbon Dioxide BUN Creatinine Glucose POC Glucose 124 H 171 H 120 H Lactic Acid Calcium Phosphorus Magnesium Direct Bilirubin AST ALT Alkaline Phosphatase Lactate Dehydrogenase Troponin T C-Reactive Protein Total Protein Albumin Prealbumin Triglycerides Cholesterol LDL Cholesterol Direct HDL Cholesterol Urine pH Urine WBC (Auto) Urine Creatinine Urine Total Protein Fluid Total Protein Vancomycin Trough Rheumatoid Factor Complement C4 Miscellaneous Test Crossmatch 10/26/16 10/26/16 10/26/16 04:54 07:06 07:06 WBC 16.9 H RBC 3.06 L Hgb 9.1 L Hct 26.9 L MCV MCH MCHC RDW 16.9 H Plt Count Lymph % (Auto) [place] % (Auto) Lymph # [place] # Baso # Seg Neutrophils % Seg Neuts % (Manual) 71.0 H Lymphocytes % (Manual) 5.0 L Monocytes % (Manual) 12.0 H Eosinophils % (Manual) Basophils % (Manual) Nucleated RBC % Seg Neutrophils # Seg Neutrophils # Man 12.0 H Lymphocytes # (Manual) 0.8 L Monocytes # (Manual) 2.0 H Eosinophils # (Manual) Basophils # (Manual) PT INR Fibrinogen dRVVT Confirm Interp Factor V Activity POC ABG pH POC ABG pCO2 POC ABG pO2 ABG pO2 ABG HCO3 ABG Base Excess ABG Hemoglobin Oxyhemoglobin Sodium 135 L Potassium Chloride 97.1 L Carbon Dioxide BUN 73 H Creatinine 2.2 H Glucose 117 H POC Glucose 123 H Lactic Acid Calcium Phosphorus 1.70 L Magnesium Direct Bilirubin AST ALT Alkaline Phosphatase Lactate Dehydrogenase Troponin T C-Reactive Protein Total Protein Albumin Prealbumin Triglycerides Cholesterol LDL Cholesterol Direct HDL Cholesterol Urine pH Urine WBC (Auto) Urine Creatinine Urine Total Protein Fluid Total Protein Vancomycin Trough Rheumatoid Factor Complement C4 Miscellaneous Test Crossmatch 10/26/16 10/26/16 10/26/16 12:12 17:29 23:42 WBC RBC Hgb Hct MCV MCH MCHC RDW Plt Count Lymph % (Auto) [place] % (Auto) Lymph # [place] # Baso # Seg Neutrophils % Seg Neuts % (Manual) Lymphocytes % (Manual) Monocytes % (Manual) Eosinophils % (Manual) Basophils % (Manual) Nucleated RBC % Seg Neutrophils # Seg Neutrophils # Man Lymphocytes # (Manual) Monocytes # (Manual) Eosinophils # (Manual) Basophils # (Manual) PT INR Fibrinogen dRVVT Confirm Interp Factor V Activity POC ABG pH POC ABG pCO2 POC ABG pO2 ABG pO2 ABG HCO3 ABG Base Excess ABG Hemoglobin Oxyhemoglobin Sodium Potassium Chloride Carbon Dioxide BUN Creatinine Glucose POC Glucose 126 H 161 H 118 H Lactic Acid Calcium Phosphorus Magnesium Direct Bilirubin AST ALT Alkaline Phosphatase Lactate Dehydrogenase Troponin T C-Reactive Protein Total Protein Albumin Prealbumin Triglycerides Cholesterol LDL Cholesterol Direct HDL Cholesterol Urine pH Urine WBC (Auto) Urine Creatinine Urine Total Protein Fluid Total Protein Vancomycin Trough Rheumatoid Factor Complement C4 Miscellaneous Test Crossmatch 10/27/16 10/27/16 10/27/16 05:03 06:30 06:30 WBC 13.9 H RBC 3.09 L Hgb 9.2 L Hct 27.5 L MCV MCH MCHC RDW 17.0 H Plt Count Lymph % (Auto) [place] % (Auto) Lymph # [place] # Baso # Seg Neutrophils % Seg Neuts % (Manual) 78.0 H Lymphocytes % (Manual) Monocytes % (Manual) Eosinophils % (Manual) Basophils % (Manual) Nucleated RBC % 2.0 H Seg Neutrophils # Seg Neutrophils # Man 10.8 H Lymphocytes # (Manual) Monocytes # (Manual) 1.0 H Eosinophils # (Manual) Basophils # (Manual) PT INR Fibrinogen dRVVT Confirm Interp Factor V Activity POC ABG pH POC ABG pCO2 POC ABG pO2 ABG pO2 ABG HCO3 ABG Base Excess ABG Hemoglobin Oxyhemoglobin Sodium Potassium Chloride Carbon Dioxide BUN 40 H Creatinine 1.5 H Glucose 135 H POC Glucose 107 H Lactic Acid Calcium 8.3 L Phosphorus 1.30 L D Magnesium Direct Bilirubin AST ALT Alkaline Phosphatase Lactate Dehydrogenase Troponin T C-Reactive Protein Total Protein Albumin Prealbumin Triglycerides Cholesterol LDL Cholesterol Direct HDL Cholesterol Urine pH Urine WBC (Auto) Urine Creatinine Urine Total Protein Fluid Total Protein Vancomycin Trough Rheumatoid Factor Complement C4 Miscellaneous Test Crossmatch 10/27/16 10/27/16 10/27/16 13:27 18:07 23:40 WBC RBC Hgb Hct MCV MCH MCHC RDW Plt Count Lymph % (Auto) [place] % (Auto) Lymph # [place] # Baso # Seg Neutrophils % Seg Neuts % (Manual) Lymphocytes % (Manual) Monocytes % (Manual) Eosinophils % (Manual) Basophils % (Manual) Nucleated RBC % Seg Neutrophils # Seg Neutrophils # Man Lymphocytes # (Manual) Monocytes # (Manual) Eosinophils # (Manual) Basophils # (Manual) PT INR Fibrinogen dRVVT Confirm Interp Factor V Activity POC ABG pH POC ABG pCO2 POC ABG pO2 ABG pO2 ABG HCO3 ABG Base Excess ABG Hemoglobin Oxyhemoglobin Sodium Potassium Chloride Carbon Dioxide BUN Creatinine Glucose POC Glucose 117 H 121 H 118 H Lactic Acid Calcium Phosphorus Magnesium Direct Bilirubin AST ALT Alkaline Phosphatase Lactate Dehydrogenase Troponin T C-Reactive Protein Total Protein Albumin Prealbumin Triglycerides Cholesterol LDL Cholesterol Direct HDL Cholesterol Urine pH Urine WBC (Auto) Urine Creatinine Urine Total Protein Fluid Total Protein Vancomycin Trough Rheumatoid Factor Complement C4 Miscellaneous Test Crossmatch 10/28/16 10/28/16 10/28/16 05:48 06:45 06:45 WBC 14.7 H RBC 3.05 L Hgb 9.0 L Hct 26.9 L MCV MCH MCHC RDW 16.8 H Plt Count Lymph % (Auto) 8.2 L [place] % (Auto) 8.4 H Lymph # [place] # 1.2 H Baso # Seg Neutrophils % 81.9 H Seg Neuts % (Manual) Lymphocytes % (Manual) Monocytes % (Manual) Eosinophils % (Manual) Basophils % (Manual) Nucleated RBC % Seg Neutrophils # 12.1 H Seg Neutrophils # Man Lymphocytes # (Manual) Monocytes # (Manual) Eosinophils # (Manual) Basophils # (Manual) PT INR Fibrinogen dRVVT Confirm Interp Factor V Activity POC ABG pH POC ABG pCO2 POC ABG pO2 ABG pO2 ABG HCO3 ABG Base Excess ABG Hemoglobin Oxyhemoglobin Sodium Potassium Chloride Carbon Dioxide BUN 60 H Creatinine 1.9 H Glucose 120 H POC Glucose 114 H Lactic Acid Calcium Phosphorus Magnesium Direct Bilirubin AST ALT Alkaline Phosphatase Lactate Dehydrogenase Troponin T C-Reactive Protein Total Protein Albumin Prealbumin Triglycerides Cholesterol LDL Cholesterol Direct HDL Cholesterol Urine pH Urine WBC (Auto) Urine Creatinine Urine Total Protein Fluid Total Protein Vancomycin Trough Rheumatoid Factor Complement C4 Miscellaneous Test Crossmatch 10/28/16 10/28/16 10/29/16 17:08 23:50 05:10 WBC RBC Hgb Hct MCV MCH MCHC RDW Plt Count Lymph % (Auto) [place] % (Auto) Lymph # [place] # Baso # Seg Neutrophils % Seg Neuts % (Manual) Lymphocytes % (Manual) Monocytes % (Manual) Eosinophils % (Manual) Basophils % (Manual) Nucleated RBC % Seg Neutrophils # Seg Neutrophils # Man Lymphocytes # (Manual) Monocytes # (Manual) Eosinophils # (Manual) Basophils # (Manual) PT INR Fibrinogen dRVVT Confirm Interp Factor V Activity POC ABG pH POC ABG pCO2 POC ABG pO2 ABG pO2 ABG HCO3 ABG Base Excess ABG Hemoglobin Oxyhemoglobin Sodium Potassium Chloride Carbon Dioxide BUN Creatinine Glucose POC Glucose 109 H 110 H 124 H Lactic Acid Calcium Phosphorus Magnesium Direct Bilirubin AST ALT Alkaline Phosphatase Lactate Dehydrogenase Troponin T C-Reactive Protein Total Protein Albumin Prealbumin Triglycerides Cholesterol LDL Cholesterol Direct HDL Cholesterol Urine pH Urine WBC (Auto) Urine Creatinine Urine Total Protein Fluid Total Protein Vancomycin Trough Rheumatoid Factor Complement C4 Miscellaneous Test Crossmatch 10/29/16 10/29/16 10/29/16 07:45 07:45 12:19 WBC 14.7 H RBC 3.15 L Hgb 9.3 L Hct 28.9 L MCV MCH MCHC RDW 17.0 H Plt Count Lymph % (Auto) 11.9 L [place] % (Auto) 8.6 H Lymph # [place] # 1.3 H Baso # Seg Neutrophils % 78.1 H Seg Neuts % (Manual) Lymphocytes % (Manual) Monocytes % (Manual) Eosinophils % (Manual) Basophils % (Manual) Nucleated RBC % Seg Neutrophils # 11.4 H Seg Neutrophils # Man Lymphocytes # (Manual) Monocytes # (Manual) Eosinophils # (Manual) Basophils # (Manual) PT INR Fibrinogen dRVVT Confirm Interp Factor V Activity POC ABG pH POC ABG pCO2 POC ABG pO2 ABG pO2 ABG HCO3 ABG Base Excess ABG Hemoglobin Oxyhemoglobin Sodium Potassium 5.1 H Chloride Carbon Dioxide 19 L BUN 78 H Creatinine 2.2 H Glucose 116 H POC Glucose 118 H Lactic Acid Calcium Phosphorus Magnesium Direct Bilirubin AST ALT Alkaline Phosphatase Lactate Dehydrogenase Troponin T C-Reactive Protein Total Protein Albumin Prealbumin Triglycerides Cholesterol LDL Cholesterol Direct HDL Cholesterol Urine pH Urine WBC (Auto) Urine Creatinine Urine Total Protein Fluid Total Protein Vancomycin Trough Rheumatoid Factor Complement C4 Miscellaneous Test Crossmatch 10/29/16 10/30/16 10/30/16 17:49 01:52 03:28 WBC RBC Hgb Hct MCV MCH MCHC RDW Plt Count Lymph % (Auto) [place] % (Auto) Lymph # [place] # Baso # Seg Neutrophils % Seg Neuts % (Manual) Lymphocytes % (Manual) Monocytes % (Manual) Eosinophils % (Manual) Basophils % (Manual) Nucleated RBC % Seg Neutrophils # Seg Neutrophils # Man Lymphocytes # (Manual) Monocytes # (Manual) Eosinophils # (Manual) Basophils # (Manual) PT INR Fibrinogen dRVVT Confirm Interp Factor V Activity POC ABG pH POC ABG pCO2 POC ABG pO2 ABG pO2 ABG HCO3 ABG Base Excess ABG Hemoglobin Oxyhemoglobin Sodium Potassium 5.4 H Chloride 97.5 L Carbon Dioxide 19 L BUN 90 H Creatinine 2.5 H Glucose POC Glucose 120 H 129 H Lactic Acid Calcium Phosphorus 5.20 H Magnesium Direct Bilirubin AST ALT Alkaline Phosphatase Lactate Dehydrogenase Troponin T C-Reactive Protein Total Protein Albumin Prealbumin Triglycerides Cholesterol LDL Cholesterol Direct HDL Cholesterol Urine pH Urine WBC (Auto) Urine Creatinine Urine Total Protein Fluid Total Protein Vancomycin Trough Rheumatoid Factor Complement C4 Miscellaneous Test Crossmatch 10/30/16 10/30/16 10/30/16 03:28 08:19 08:19 WBC 11.6 H 15.9 H RBC 2.75 L 2.82 L Hgb 7.9 L 8.3 L Hct 24.2 L 25.2 L MCV MCH MCHC RDW 16.7 H 17.2 H Plt Count Lymph % (Auto) [place] % (Auto) 9.8 H Lymph # [place] # 1.1 H Baso # Seg Neutrophils % 74.2 H Seg Neuts % (Manual) Lymphocytes % (Manual) Monocytes % (Manual) Eosinophils % (Manual) Basophils % (Manual) Nucleated RBC % Seg Neutrophils # 8.6 H Seg Neutrophils # Man Lymphocytes # (Manual) Monocytes # (Manual) Eosinophils # (Manual) Basophils # (Manual) PT INR Fibrinogen dRVVT Confirm Interp Factor V Activity POC ABG pH POC ABG pCO2 POC ABG pO2 ABG pO2 ABG HCO3 ABG Base Excess ABG Hemoglobin Oxyhemoglobin Sodium Potassium 5.3 H Chloride 97.4 L Carbon Dioxide 19 L BUN 93 H Creatinine 2.6 H Glucose POC Glucose Lactic Acid Calcium Phosphorus Magnesium Direct Bilirubin AST ALT Alkaline Phosphatase Lactate Dehydrogenase Troponin T C-Reactive Protein Total Protein Albumin Prealbumin Triglycerides Cholesterol LDL Cholesterol Direct HDL Cholesterol Urine pH Urine WBC (Auto) Urine Creatinine Urine Total Protein Fluid Total Protein Vancomycin Trough Rheumatoid Factor Complement C4 Miscellaneous Test Crossmatch 10/30/16 10/30/16 10/31/16 17:11 23:56 00:40 WBC RBC Hgb Hct MCV MCH MCHC RDW Plt Count Lymph % (Auto) [place] % (Auto) Lymph # [place] # Baso # Seg Neutrophils % Seg Neuts % (Manual) Lymphocytes % (Manual) Monocytes % (Manual) Eosinophils % (Manual) Basophils % (Manual) Nucleated RBC % Seg Neutrophils # Seg Neutrophils # Man Lymphocytes # (Manual) Monocytes # (Manual) Eosinophils # (Manual) Basophils # (Manual) PT INR Fibrinogen dRVVT Confirm Interp Factor V Activity POC ABG pH POC ABG pCO2 POC ABG pO2 ABG pO2 ABG HCO3 ABG Base Excess ABG Hemoglobin Oxyhemoglobin Sodium Potassium Chloride Carbon Dioxide BUN Creatinine Glucose POC Glucose 106 H 117 H 120 H Lactic Acid Calcium Phosphorus Magnesium Direct Bilirubin AST ALT Alkaline Phosphatase Lactate Dehydrogenase Troponin T C-Reactive Protein Total Protein Albumin Prealbumin Triglycerides Cholesterol LDL Cholesterol Direct HDL Cholesterol Urine pH Urine WBC (Auto) Urine Creatinine Urine Total Protein Fluid Total Protein Vancomycin Trough Rheumatoid Factor Complement C4 Miscellaneous Test Crossmatch 10/31/16 10/31/16 10/31/16 05:43 07:15 07:15 WBC 12.1 H RBC 2.63 L Hgb 7.7 L Hct 23.3 L MCV MCH MCHC RDW 16.7 H Plt Count Lymph % (Auto) 11.7 L [place] % (Auto) 7.7 H Lymph # [place] # 0.9 H Baso # Seg Neutrophils % 78.0 H Seg Neuts % (Manual) Lymphocytes % (Manual) Monocytes % (Manual) Eosinophils % (Manual) Basophils % (Manual) Nucleated RBC % Seg Neutrophils # 9.4 H Seg Neutrophils # Man Lymphocytes # (Manual) Monocytes # (Manual) Eosinophils # (Manual) Basophils # (Manual) PT INR Fibrinogen dRVVT Confirm Interp Factor V Activity POC ABG pH POC ABG pCO2 POC ABG pO2 ABG pO2 ABG HCO3 ABG Base Excess ABG Hemoglobin Oxyhemoglobin Sodium Potassium Chloride 96.4 L Carbon Dioxide 21 L BUN 99 H Creatinine 2.6 H Glucose 144 H POC Glucose 125 H Lactic Acid Calcium Phosphorus 4.80 H Magnesium Direct Bilirubin AST ALT Alkaline Phosphatase Lactate Dehydrogenase Troponin T C-Reactive Protein Total Protein Albumin Prealbumin Triglycerides Cholesterol LDL Cholesterol Direct HDL Cholesterol Urine pH Urine WBC (Auto) Urine Creatinine Urine Total Protein Fluid Total Protein Vancomycin Trough Rheumatoid Factor Complement C4 Miscellaneous Test Crossmatch 10/31/16 10/31/16 11/01/16 11:46 18:34 00:20 WBC RBC Hgb Hct MCV MCH MCHC RDW Plt Count Lymph % (Auto) [place] % (Auto) Lymph # [place] # Baso # Seg Neutrophils % Seg Neuts % (Manual) Lymphocytes % (Manual) Monocytes % (Manual) Eosinophils % (Manual) Basophils % (Manual) Nucleated RBC % Seg Neutrophils # Seg Neutrophils # Man Lymphocytes # (Manual) Monocytes # (Manual) Eosinophils # (Manual) Basophils # (Manual) PT INR Fibrinogen dRVVT Confirm Interp Factor V Activity POC ABG pH POC ABG pCO2 POC ABG pO2 ABG pO2 ABG HCO3 ABG Base Excess ABG Hemoglobin Oxyhemoglobin Sodium Potassium Chloride Carbon Dioxide BUN Creatinine Glucose POC Glucose 159 H 140 H 132 H Lactic Acid Calcium Phosphorus Magnesium Direct Bilirubin AST ALT Alkaline Phosphatase Lactate Dehydrogenase Troponin T C-Reactive Protein Total Protein Albumin Prealbumin Triglycerides Cholesterol LDL Cholesterol Direct HDL Cholesterol Urine pH Urine WBC (Auto) Urine Creatinine Urine Total Protein Fluid Total Protein Vancomycin Trough Rheumatoid Factor Complement C4 Miscellaneous Test Crossmatch 11/01/16 11/01/16 11/01/16 04:55 04:55 06:11 WBC 11.2 H RBC 2.68 L Hgb 7.5 L Hct 23.7 L MCV MCH MCHC RDW 16.1 H Plt Count Lymph % (Auto) [place] % (Auto) 9.8 H Lymph # [place] # 1.1 H Baso # Seg Neutrophils % 70.8 H Seg Neuts % (Manual) Lymphocytes % (Manual) Monocytes % (Manual) Eosinophils % (Manual) Basophils % (Manual) Nucleated RBC % Seg Neutrophils # 7.9 H Seg Neutrophils # Man Lymphocytes # (Manual) Monocytes # (Manual) Eosinophils # (Manual) Basophils # (Manual) PT INR Fibrinogen dRVVT Confirm Interp Factor V Activity POC ABG pH POC ABG pCO2 POC ABG pO2 ABG pO2 ABG HCO3 ABG Base Excess ABG Hemoglobin Oxyhemoglobin Sodium Potassium 3.3 L D Chloride Carbon Dioxide BUN 61 H Creatinine 1.9 H Glucose 114 H POC Glucose 115 H Lactic Acid Calcium Phosphorus 1.80 L D Magnesium Direct Bilirubin AST ALT Alkaline Phosphatase Lactate Dehydrogenase Troponin T C-Reactive Protein Total Protein Albumin Prealbumin Triglycerides Cholesterol LDL Cholesterol Direct HDL Cholesterol Urine pH Urine WBC (Auto) Urine Creatinine Urine Total Protein Fluid Total Protein Vancomycin Trough Rheumatoid Factor Complement C4 Miscellaneous Test Crossmatch 11/01/16 11/01/16 11/01/16 12:29 18:23 23:58 WBC RBC Hgb Hct MCV MCH MCHC RDW Plt Count Lymph % (Auto) [place] % (Auto) Lymph # [place] # Baso # Seg Neutrophils % Seg Neuts % (Manual) Lymphocytes % (Manual) Monocytes % (Manual) Eosinophils % (Manual) Basophils % (Manual) Nucleated RBC % Seg Neutrophils # Seg Neutrophils # Man Lymphocytes # (Manual) Monocytes # (Manual) Eosinophils # (Manual) Basophils # (Manual) PT INR Fibrinogen dRVVT Confirm Interp Factor V Activity POC ABG pH POC ABG pCO2 POC ABG pO2 ABG pO2 ABG HCO3 ABG Base Excess ABG Hemoglobin Oxyhemoglobin Sodium Potassium Chloride Carbon Dioxide BUN Creatinine Glucose POC Glucose 142 H 143 H 128 H Lactic Acid Calcium Phosphorus Magnesium Direct Bilirubin AST ALT Alkaline Phosphatase Lactate Dehydrogenase Troponin T C-Reactive Protein Total Protein Albumin Prealbumin Triglycerides Cholesterol LDL Cholesterol Direct HDL Cholesterol Urine pH Urine WBC (Auto) Urine Creatinine Urine Total Protein Fluid Total Protein Vancomycin Trough Rheumatoid Factor Complement C4 Miscellaneous Test Crossmatch 11/02/16 11/02/16 11/02/16 04:16 05:29 11:58 WBC RBC Hgb Hct MCV MCH MCHC RDW Plt Count Lymph % (Auto) [place] % (Auto) Lymph # [place] # Baso # Seg Neutrophils % Seg Neuts % (Manual) Lymphocytes % (Manual) Monocytes % (Manual) Eosinophils % (Manual) Basophils % (Manual) Nucleated RBC % Seg Neutrophils # Seg Neutrophils # Man Lymphocytes # (Manual) Monocytes # (Manual) Eosinophils # (Manual) Basophils # (Manual) PT INR Fibrinogen dRVVT Confirm Interp Factor V Activity POC ABG pH POC ABG pCO2 POC ABG pO2 ABG pO2 ABG HCO3 ABG Base Excess ABG Hemoglobin Oxyhemoglobin Sodium Potassium 3.1 L Chloride Carbon Dioxide BUN 73 H Creatinine 2.3 H Glucose 112 H POC Glucose 135 H 149 H Lactic Acid Calcium Phosphorus Magnesium Direct Bilirubin AST ALT Alkaline Phosphatase Lactate Dehydrogenase Troponin T C-Reactive Protein Total Protein Albumin Prealbumin Triglycerides Cholesterol LDL Cholesterol Direct HDL Cholesterol Urine pH Urine WBC (Auto) Urine Creatinine Urine Total Protein Fluid Total Protein Vancomycin Trough Rheumatoid Factor Complement C4 Miscellaneous Test Crossmatch 11/02/16 11/02/16 11/03/16 17:42 22:54 06:00 WBC RBC Hgb Hct MCV MCH MCHC RDW Plt Count Lymph % (Auto) [place] % (Auto) Lymph # [place] # Baso # Seg Neutrophils % Seg Neuts % (Manual) Lymphocytes % (Manual) Monocytes % (Manual) Eosinophils % (Manual) Basophils % (Manual) Nucleated RBC % Seg Neutrophils # Seg Neutrophils # Man Lymphocytes # (Manual) Monocytes # (Manual) Eosinophils # (Manual) Basophils # (Manual) PT INR Fibrinogen dRVVT Confirm Interp Factor V Activity POC ABG pH POC ABG pCO2 POC ABG pO2 ABG pO2 ABG HCO3 ABG Base Excess ABG Hemoglobin Oxyhemoglobin Sodium Potassium Chloride 96.7 L Carbon Dioxide BUN 41 H Creatinine 1.5 H Glucose 145 H POC Glucose 182 H 115 H Lactic Acid Calcium Phosphorus 1.60 L D Magnesium 1.50 L Direct Bilirubin AST ALT Alkaline Phosphatase Lactate Dehydrogenase Troponin T C-Reactive Protein Total Protein Albumin Prealbumin Triglycerides Cholesterol LDL Cholesterol Direct HDL Cholesterol Urine pH Urine WBC (Auto) Urine Creatinine Urine Total Protein Fluid Total Protein Vancomycin Trough Rheumatoid Factor Complement C4 Miscellaneous Test Crossmatch 11/03/16 11/03/16 11/03/16 11:53 17:45 23:37 WBC RBC Hgb Hct MCV MCH MCHC RDW Plt Count Lymph % (Auto) [place] % (Auto) Lymph # [place] # Baso # Seg Neutrophils % Seg Neuts % (Manual) Lymphocytes % (Manual) Monocytes % (Manual) Eosinophils % (Manual) Basophils % (Manual) Nucleated RBC % Seg Neutrophils # Seg Neutrophils # Man Lymphocytes # (Manual) Monocytes # (Manual) Eosinophils # (Manual) Basophils # (Manual) PT INR Fibrinogen dRVVT Confirm Interp Factor V Activity POC ABG pH POC ABG pCO2 POC ABG pO2 ABG pO2 ABG HCO3 ABG Base Excess ABG Hemoglobin Oxyhemoglobin Sodium Potassium Chloride Carbon Dioxide BUN Creatinine Glucose POC Glucose 131 H 134 H 113 H Lactic Acid Calcium Phosphorus Magnesium Direct Bilirubin AST ALT Alkaline Phosphatase Lactate Dehydrogenase Troponin T C-Reactive Protein Total Protein Albumin Prealbumin Triglycerides Cholesterol LDL Cholesterol Direct HDL Cholesterol Urine pH Urine WBC (Auto) Urine Creatinine Urine Total Protein Fluid Total Protein Vancomycin Trough Rheumatoid Factor Complement C4 Miscellaneous Test Crossmatch 11/04/16 11/04/16 11/04/16 05:41 06:00 12:10 WBC RBC Hgb Hct MCV MCH MCHC RDW Plt Count Lymph % (Auto) [place] % (Auto) Lymph # [place] # Baso # Seg Neutrophils % Seg Neuts % (Manual) Lymphocytes % (Manual) Monocytes % (Manual) Eosinophils % (Manual) Basophils % (Manual) Nucleated RBC % Seg Neutrophils # Seg Neutrophils # Man Lymphocytes # (Manual) Monocytes # (Manual) Eosinophils # (Manual) Basophils # (Manual) PT INR Fibrinogen dRVVT Confirm Interp Factor V Activity POC ABG pH POC ABG pCO2 POC ABG pO2 ABG pO2 ABG HCO3 ABG Base Excess ABG Hemoglobin Oxyhemoglobin Sodium Potassium Chloride 96.7 L Carbon Dioxide BUN 52 H Creatinine 1.9 H Glucose 126 H POC Glucose 137 H 191 H Lactic Acid Calcium Phosphorus Magnesium Direct Bilirubin AST ALT Alkaline Phosphatase Lactate Dehydrogenase Troponin T C-Reactive Protein Total Protein Albumin Prealbumin Triglycerides Cholesterol LDL Cholesterol Direct HDL Cholesterol Urine pH Urine WBC (Auto) Urine Creatinine Urine Total Protein Fluid Total Protein Vancomycin Trough Rheumatoid Factor Complement C4 Miscellaneous Test Crossmatch 11/04/16 11/05/16 11/05/16 22:57 03:10 05:10 WBC RBC Hgb Hct MCV MCH MCHC RDW Plt Count Lymph % (Auto) [place] % (Auto) Lymph # [place] # Baso # Seg Neutrophils % Seg Neuts % (Manual) Lymphocytes % (Manual) Monocytes % (Manual) Eosinophils % (Manual) Basophils % (Manual) Nucleated RBC % Seg Neutrophils # Seg Neutrophils # Man Lymphocytes # (Manual) Monocytes # (Manual) Eosinophils # (Manual) Basophils # (Manual) PT INR Fibrinogen dRVVT Confirm Interp Factor V Activity POC ABG pH POC ABG pCO2 POC ABG pO2 ABG pO2 ABG HCO3 ABG Base Excess ABG Hemoglobin Oxyhemoglobin Sodium 136 L Potassium Chloride 97.2 L Carbon Dioxide BUN 32 H Creatinine 1.3 H Glucose 123 H POC Glucose 125 H 108 H Lactic Acid Calcium 7.8 L Phosphorus Magnesium Direct Bilirubin AST ALT Alkaline Phosphatase Lactate Dehydrogenase Troponin T C-Reactive Protein Total Protein Albumin Prealbumin Triglycerides Cholesterol LDL Cholesterol Direct HDL Cholesterol Urine pH Urine WBC (Auto) Urine Creatinine Urine Total Protein Fluid Total Protein Vancomycin Trough Rheumatoid Factor Complement C4 Miscellaneous Test Crossmatch 11/05/16 11/05/16 11/05/16 12:23 13:09 13:25 WBC RBC Hgb Hct MCV MCH MCHC RDW Plt Count Lymph % (Auto) [place] % (Auto) Lymph # [place] # Baso # Seg Neutrophils % Seg Neuts % (Manual) Lymphocytes % (Manual) Monocytes % (Manual) Eosinophils % (Manual) Basophils % (Manual) Nucleated RBC % Seg Neutrophils # Seg Neutrophils # Man Lymphocytes # (Manual) Monocytes # (Manual) Eosinophils # (Manual) Basophils # (Manual) PT INR Fibrinogen dRVVT Confirm Interp Factor V Activity POC ABG pH POC ABG pCO2 POC ABG pO2 ABG pO2 ABG HCO3 ABG Base Excess ABG Hemoglobin Oxyhemoglobin Sodium Potassium Chloride Carbon Dioxide BUN Creatinine Glucose POC Glucose 124 H Lactic Acid Calcium Phosphorus Magnesium Direct Bilirubin AST ALT Alkaline Phosphatase Lactate Dehydrogenase Troponin T C-Reactive Protein 11.40 H Total Protein Albumin Prealbumin Triglycerides Cholesterol LDL Cholesterol Direct HDL Cholesterol Urine pH 9.0 H Urine WBC (Auto) Urine Creatinine Urine Total Protein Fluid Total Protein Vancomycin Trough Rheumatoid Factor Complement C4 Miscellaneous Test Crossmatch 11/05/16 11/05/16 11/05/16 13:25 17:54 23:42 WBC RBC Hgb Hct MCV MCH MCHC RDW Plt Count Lymph % (Auto) [place] % (Auto) Lymph # [place] # Baso # Seg Neutrophils % Seg Neuts % (Manual) Lymphocytes % (Manual) Monocytes % (Manual) Eosinophils % (Manual) Basophils % (Manual) Nucleated RBC % Seg Neutrophils # Seg Neutrophils # Man Lymphocytes # (Manual) Monocytes # (Manual) Eosinophils # (Manual) Basophils # (Manual) PT INR Fibrinogen dRVVT Confirm Interp Factor V Activity POC ABG pH POC ABG pCO2 POC ABG pO2 ABG pO2 ABG HCO3 ABG Base Excess ABG Hemoglobin Oxyhemoglobin Sodium Potassium Chloride Carbon Dioxide BUN Creatinine Glucose POC Glucose 114 H 134 H Lactic Acid Calcium Phosphorus Magnesium Direct Bilirubin AST ALT Alkaline Phosphatase Lactate Dehydrogenase Troponin T C-Reactive Protein Total Protein Albumin Prealbumin Triglycerides Cholesterol LDL Cholesterol Direct HDL Cholesterol Urine pH Urine WBC (Auto) Urine Creatinine Urine Total Protein Fluid Total Protein Vancomycin Trough Rheumatoid Factor Complement C4 Miscellaneous Test Flexitest 1 H Crossmatch 11/06/16 11/06/16 11/06/16 04:56 06:25 06:25 WBC RBC 2.50 L Hgb 7.3 L Hct 22.5 L MCV MCH MCHC RDW 16.9 H Plt Count Lymph % (Auto) [place] % (Auto) 10.5 H Lymph # [place] # 1.1 H Baso # Seg Neutrophils % Seg Neuts % (Manual) Lymphocytes % (Manual) Monocytes % (Manual) Eosinophils % (Manual) Basophils % (Manual) Nucleated RBC % Seg Neutrophils # Seg Neutrophils # Man Lymphocytes # (Manual) Monocytes # (Manual) Eosinophils # (Manual) Basophils # (Manual) PT INR Fibrinogen dRVVT Confirm Interp Factor V Activity POC ABG pH POC ABG pCO2 POC ABG pO2 ABG pO2 ABG HCO3 ABG Base Excess ABG Hemoglobin Oxyhemoglobin Sodium Potassium 5.1 H Chloride 95.9 L Carbon Dioxide BUN 52 H Creatinine 1.8 H Glucose 117 H POC Glucose 120 H Lactic Acid Calcium Phosphorus Magnesium Direct Bilirubin AST 103 H ALT 77 H Alkaline Phosphatase 285 H Lactate Dehydrogenase Troponin T C-Reactive Protein Total Protein 6.2 L Albumin 1.8 L Prealbumin 0.180 L Triglycerides Cholesterol LDL Cholesterol Direct HDL Cholesterol Urine pH Urine WBC (Auto) Urine Creatinine Urine Total Protein Fluid Total Protein Vancomycin Trough Rheumatoid Factor Complement C4 Miscellaneous Test Crossmatch 11/06/16 11/06/16 11/06/16 11:56 17:14 23:52 WBC RBC Hgb Hct MCV MCH MCHC RDW Plt Count Lymph % (Auto) [place] % (Auto) Lymph # [place] # Baso # Seg Neutrophils % Seg Neuts % (Manual) Lymphocytes % (Manual) Monocytes % (Manual) Eosinophils % (Manual) Basophils % (Manual) Nucleated RBC % Seg Neutrophils # Seg Neutrophils # Man Lymphocytes # (Manual) Monocytes # (Manual) Eosinophils # (Manual) Basophils # (Manual) PT INR Fibrinogen dRVVT Confirm Interp Factor V Activity POC ABG pH POC ABG pCO2 POC ABG pO2 ABG pO2 ABG HCO3 ABG Base Excess ABG Hemoglobin Oxyhemoglobin Sodium Potassium Chloride Carbon Dioxide BUN Creatinine Glucose POC Glucose 141 H 125 H 130 H Lactic Acid Calcium Phosphorus Magnesium Direct Bilirubin AST ALT Alkaline Phosphatase Lactate Dehydrogenase Troponin T C-Reactive Protein Total Protein Albumin Prealbumin Triglycerides Cholesterol LDL Cholesterol Direct HDL Cholesterol Urine pH Urine WBC (Auto) Urine Creatinine Urine Total Protein Fluid Total Protein Vancomycin Trough Rheumatoid Factor Complement C4 Miscellaneous Test Crossmatch 11/07/16 11/07/16 11/07/16 06:30 06:30 09:37 WBC RBC 2.18 L Hgb 6.3 L Hct 19.7 L* MCV MCH MCHC RDW 16.8 H Plt Count Lymph % (Auto) [place] % (Auto) 10.0 H Lymph # [place] # 1.0 H Baso # Seg Neutrophils % Seg Neuts % (Manual) Lymphocytes % (Manual) Monocytes % (Manual) Eosinophils % (Manual) Basophils % (Manual) Nucleated RBC % Seg Neutrophils # Seg Neutrophils # Man Lymphocytes # (Manual) Monocytes # (Manual) Eosinophils # (Manual) Basophils # (Manual) PT INR Fibrinogen dRVVT Confirm Interp Factor V Activity POC ABG pH POC ABG pCO2 POC ABG pO2 ABG pO2 ABG HCO3 ABG Base Excess ABG Hemoglobin Oxyhemoglobin Sodium 135 L Potassium Chloride 95.6 L Carbon Dioxide BUN 70 H Creatinine 2.0 H Glucose 126 H POC Glucose Lactic Acid Calcium Phosphorus Magnesium Direct Bilirubin AST ALT Alkaline Phosphatase Lactate Dehydrogenase Troponin T C-Reactive Protein Total Protein Albumin Prealbumin Triglycerides Cholesterol LDL Cholesterol Direct HDL Cholesterol Urine pH Urine WBC (Auto) Urine Creatinine Urine Total Protein Fluid Total Protein Vancomycin Trough Rheumatoid Factor Complement C4 Miscellaneous Test Crossmatch See Detail 11/07/16 11/07/16 11/07/16 12:52 18:51 21:26 WBC RBC Hgb Hct MCV MCH MCHC RDW Plt Count Lymph % (Auto) [place] % (Auto) Lymph # [place] # Baso # Seg Neutrophils % Seg Neuts % (Manual) Lymphocytes % (Manual) Monocytes % (Manual) Eosinophils % (Manual) Basophils % (Manual) Nucleated RBC % Seg Neutrophils # Seg Neutrophils # Man Lymphocytes # (Manual) Monocytes # (Manual) Eosinophils # (Manual) Basophils # (Manual) PT INR Fibrinogen dRVVT Confirm Interp Factor V Activity POC ABG pH 7.523 H POC ABG pCO2 34.6 L POC ABG pO2 53 L ABG pO2 ABG HCO3 ABG Base Excess ABG Hemoglobin Oxyhemoglobin Sodium Potassium Chloride Carbon Dioxide BUN Creatinine Glucose POC Glucose 142 H 155 H Lactic Acid Calcium Phosphorus Magnesium Direct Bilirubin AST ALT Alkaline Phosphatase Lactate Dehydrogenase Troponin T C-Reactive Protein Total Protein Albumin Prealbumin Triglycerides Cholesterol LDL Cholesterol Direct HDL Cholesterol Urine pH Urine WBC (Auto) Urine Creatinine Urine Total Protein Fluid Total Protein Vancomycin Trough Rheumatoid Factor Complement C4 Miscellaneous Test Crossmatch 11/07/16 11/08/16 11/08/16 21:34 13:03 23:37 WBC RBC 2.63 L Hgb 7.7 L Hct 22.7 L MCV MCH MCHC RDW 17.0 H Plt Count Lymph % (Auto) [place] % (Auto) Lymph # [place] # Baso # Seg Neutrophils % Seg Neuts % (Manual) Lymphocytes % (Manual) Monocytes % (Manual) Eosinophils % (Manual) Basophils % (Manual) Nucleated RBC % Seg Neutrophils # Seg Neutrophils # Man Lymphocytes # (Manual) Monocytes # (Manual) Eosinophils # (Manual) Basophils # (Manual) PT INR Fibrinogen dRVVT Confirm Interp Factor V Activity POC ABG pH 7.478 H POC ABG pCO2 34.0 L POC ABG pO2 50 L ABG pO2 ABG HCO3 ABG Base Excess ABG Hemoglobin Oxyhemoglobin Sodium Potassium Chloride Carbon Dioxide BUN Creatinine Glucose POC Glucose 113 H Lactic Acid Calcium Phosphorus Magnesium Direct Bilirubin AST ALT Alkaline Phosphatase Lactate Dehydrogenase Troponin T C-Reactive Protein Total Protein Albumin Prealbumin Triglycerides Cholesterol LDL Cholesterol Direct HDL Cholesterol Urine pH Urine WBC (Auto) Urine Creatinine Urine Total Protein Fluid Total Protein Vancomycin Trough Rheumatoid Factor Complement C4 Miscellaneous Test Crossmatch 11/09/16 11/09/16 11/09/16 04:35 10:15 18:21 WBC RBC 2.68 L Hgb 7.8 L Hct 23.3 L MCV MCH MCHC RDW 17.0 H Plt Count Lymph % (Auto) [place] % (Auto) 12.1 H Lymph # [place] # 1.1 H Baso # Seg Neutrophils % Seg Neuts % (Manual) Lymphocytes % (Manual) Monocytes % (Manual) Eosinophils % (Manual) Basophils % (Manual) Nucleated RBC % Seg Neutrophils # Seg Neutrophils # Man Lymphocytes # (Manual) Monocytes # (Manual) Eosinophils # (Manual) Basophils # (Manual) PT INR Fibrinogen dRVVT Confirm Interp Factor V Activity POC ABG pH POC ABG pCO2 POC ABG pO2 ABG pO2 ABG HCO3 ABG Base Excess ABG Hemoglobin Oxyhemoglobin Sodium Potassium Chloride Carbon Dioxide BUN 51 H Creatinine 1.8 H Glucose POC Glucose 60 L Lactic Acid Calcium 8.3 L Phosphorus Magnesium Direct Bilirubin AST ALT Alkaline Phosphatase Lactate Dehydrogenase Troponin T C-Reactive Protein Total Protein Albumin Prealbumin Triglycerides Cholesterol LDL Cholesterol Direct HDL Cholesterol Urine pH Urine WBC (Auto) Urine Creatinine Urine Total Protein Fluid Total Protein Vancomycin Trough Rheumatoid Factor Complement C4 Miscellaneous Test Crossmatch 11/09/16 11/10/16 11/10/16 18:55 07:00 11:51 WBC RBC Hgb Hct MCV MCH MCHC RDW Plt Count Lymph % (Auto) [place] % (Auto) Lymph # [place] # Baso # Seg Neutrophils % Seg Neuts % (Manual) Lymphocytes % (Manual) Monocytes % (Manual) Eosinophils % (Manual) Basophils % (Manual) Nucleated RBC % Seg Neutrophils # Seg Neutrophils # Man Lymphocytes # (Manual) Monocytes # (Manual) Eosinophils # (Manual) Basophils # (Manual) PT INR Fibrinogen dRVVT Confirm Interp Factor V Activity POC ABG pH POC ABG pCO2 POC ABG pO2 ABG pO2 ABG HCO3 ABG Base Excess ABG Hemoglobin Oxyhemoglobin Sodium Potassium 3.0 L D Chloride 97.4 L Carbon Dioxide BUN 28 H Creatinine 1.3 H Glucose POC Glucose 68 L 120 H Lactic Acid Calcium 7.8 L Phosphorus Magnesium Direct Bilirubin AST ALT Alkaline Phosphatase Lactate Dehydrogenase Troponin T C-Reactive Protein Total Protein Albumin Prealbumin Triglycerides Cholesterol LDL Cholesterol Direct HDL Cholesterol Urine pH Urine WBC (Auto) Urine Creatinine Urine Total Protein Fluid Total Protein Vancomycin Trough Rheumatoid Factor Complement C4 Miscellaneous Test Crossmatch 11/10/16 11/11/16 11/11/16 14:20 06:59 06:59 WBC RBC 2.81 L Hgb 8.1 L Hct 24.4 L MCV MCH MCHC RDW 16.4 H Plt Count Lymph % (Auto) [place] % (Auto) 10.8 H Lymph # [place] # 1.0 H Baso # Seg Neutrophils % Seg Neuts % (Manual) Lymphocytes % (Manual) Monocytes % (Manual) Eosinophils % (Manual) Basophils % (Manual) Nucleated RBC % Seg Neutrophils # Seg Neutrophils # Man Lymphocytes # (Manual) Monocytes # (Manual) Eosinophils # (Manual) Basophils # (Manual) PT INR Fibrinogen dRVVT Confirm Interp Factor V Activity POC ABG pH POC ABG pCO2 POC ABG pO2 ABG pO2 ABG HCO3 ABG Base Excess ABG Hemoglobin Oxyhemoglobin Sodium Potassium Chloride Carbon Dioxide BUN Creatinine Glucose POC Glucose Lactic Acid Calcium Phosphorus Magnesium Direct Bilirubin AST ALT Alkaline Phosphatase Lactate Dehydrogenase 196 H Troponin T C-Reactive Protein Total Protein 6.1 L Albumin Prealbumin Triglycerides Cholesterol LDL Cholesterol Direct HDL Cholesterol Urine pH Urine WBC (Auto) Urine Creatinine Urine Total Protein Fluid Total Protein < 3.0 L Vancomycin Trough Rheumatoid Factor Complement C4 Miscellaneous Test Crossmatch 11/11/16 11/11/16 11/12/16 06:59 09:50 04:00 WBC RBC Hgb Hct MCV MCH MCHC RDW Plt Count Lymph % (Auto) [place] % (Auto) Lymph # [place] # Baso # Seg Neutrophils % Seg Neuts % (Manual) Lymphocytes % (Manual) Monocytes % (Manual) Eosinophils % (Manual) Basophils % (Manual) Nucleated RBC % Seg Neutrophils # Seg Neutrophils # Man Lymphocytes # (Manual) Monocytes # (Manual) Eosinophils # (Manual) Basophils # (Manual) PT INR 1.18 H Fibrinogen dRVVT Confirm Interp Factor V Activity POC ABG pH POC ABG pCO2 POC ABG pO2 ABG pO2 ABG HCO3 ABG Base Excess ABG Hemoglobin Oxyhemoglobin Sodium 136 L 133 L Potassium Chloride 96.1 L 94.8 L Carbon Dioxide 21 L BUN 37 H 42 H Creatinine 1.8 H 2.0 H Glucose POC Glucose Lactic Acid Calcium Phosphorus Magnesium Direct Bilirubin AST ALT Alkaline Phosphatase Lactate Dehydrogenase Troponin T C-Reactive Protein Total Protein Albumin Prealbumin Triglycerides Cholesterol LDL Cholesterol Direct HDL Cholesterol Urine pH Urine WBC (Auto) Urine Creatinine Urine Total Protein Fluid Total Protein Vancomycin Trough Rheumatoid Factor Complement C4 Miscellaneous Test Crossmatch 11/12/16 11/12/16 11/13/16 04:00 23:55 05:53 WBC RBC Hgb 8.9 L Hct 27.2 L MCV MCH MCHC RDW Plt Count Lymph % (Auto) [place] % (Auto) Lymph # [place] # Baso # Seg Neutrophils % Seg Neuts % (Manual) Lymphocytes % (Manual) Monocytes % (Manual) Eosinophils % (Manual) Basophils % (Manual) Nucleated RBC % Seg Neutrophils # Seg Neutrophils # Man Lymphocytes # (Manual) Monocytes # (Manual) Eosinophils # (Manual) Basophils # (Manual) PT INR Fibrinogen dRVVT Confirm Interp Factor V Activity POC ABG pH POC ABG pCO2 POC ABG pO2 ABG pO2 ABG HCO3 ABG Base Excess ABG Hemoglobin Oxyhemoglobin Sodium Potassium Chloride Carbon Dioxide BUN Creatinine Glucose POC Glucose 132 H 120 H Lactic Acid Calcium Phosphorus Magnesium Direct Bilirubin AST ALT Alkaline Phosphatase Lactate Dehydrogenase Troponin T C-Reactive Protein Total Protein Albumin Prealbumin Triglycerides Cholesterol LDL Cholesterol Direct HDL Cholesterol Urine pH Urine WBC (Auto) Urine Creatinine Urine Total Protein Fluid Total Protein Vancomycin Trough Rheumatoid Factor Complement C4 Miscellaneous Test Crossmatch 11/13/16 11/13/16 11/13/16 11:43 17:09 23:41 WBC RBC Hgb Hct MCV MCH MCHC RDW Plt Count Lymph % (Auto) [place] % (Auto) Lymph # [place] # Baso # Seg Neutrophils % Seg Neuts % (Manual) Lymphocytes % (Manual) Monocytes % (Manual) Eosinophils % (Manual) Basophils % (Manual) Nucleated RBC % Seg Neutrophils # Seg Neutrophils # Man Lymphocytes # (Manual) Monocytes # (Manual) Eosinophils # (Manual) Basophils # (Manual) PT INR Fibrinogen dRVVT Confirm Interp Factor V Activity POC ABG pH POC ABG pCO2 POC ABG pO2 ABG pO2 ABG HCO3 ABG Base Excess ABG Hemoglobin Oxyhemoglobin Sodium Potassium Chloride Carbon Dioxide BUN Creatinine Glucose POC Glucose 114 H 113 H 108 H Lactic Acid Calcium Phosphorus Magnesium Direct Bilirubin AST ALT Alkaline Phosphatase Lactate Dehydrogenase Troponin T C-Reactive Protein Total Protein Albumin Prealbumin Triglycerides Cholesterol LDL Cholesterol Direct HDL Cholesterol Urine pH Urine WBC (Auto) Urine Creatinine Urine Total Protein Fluid Total Protein Vancomycin Trough Rheumatoid Factor Complement C4 Miscellaneous Test Crossmatch 11/13/16 11/15/16 11/15/16 Unknown 00:37 03:30 WBC 11.2 H RBC 2.72 L Hgb 7.6 L Hct 23.4 L MCV MCH MCHC RDW 16.5 H Plt Count Lymph % (Auto) [place] % (Auto) Lymph # [place] # Baso # Seg Neutrophils % Seg Neuts % (Manual) Lymphocytes % (Manual) Monocytes % (Manual) Eosinophils % (Manual) Basophils % (Manual) Nucleated RBC % Seg Neutrophils # Seg Neutrophils # Man Lymphocytes # (Manual) Monocytes # (Manual) Eosinophils # (Manual) Basophils # (Manual) PT INR Fibrinogen dRVVT Confirm Interp Factor V Activity POC ABG pH POC ABG pCO2 POC ABG pO2 ABG pO2 ABG HCO3 ABG Base Excess ABG Hemoglobin Oxyhemoglobin Sodium 135 L Potassium Chloride 95.2 L Carbon Dioxide BUN 52 H Creatinine 2.2 H Glucose POC Glucose 108 H Lactic Acid Calcium Phosphorus Magnesium Direct Bilirubin AST ALT Alkaline Phosphatase Lactate Dehydrogenase Troponin T C-Reactive Protein Total Protein Albumin Prealbumin Triglycerides Cholesterol LDL Cholesterol Direct HDL Cholesterol Urine pH Urine WBC (Auto) Urine Creatinine Urine Total Protein Fluid Total Protein Vancomycin Trough Rheumatoid Factor Complement C4 Miscellaneous Test Crossmatch 11/15/16 11/15/16 11/15/16 03:30 05:04 11:50 WBC RBC Hgb Hct MCV MCH MCHC RDW Plt Count Lymph % (Auto) [place] % (Auto) Lymph # [place] # Baso # Seg Neutrophils % Seg Neuts % (Manual) Lymphocytes % (Manual) Monocytes % (Manual) Eosinophils % (Manual) Basophils % (Manual) Nucleated RBC % Seg Neutrophils # Seg Neutrophils # Man Lymphocytes # (Manual) Monocytes # (Manual) Eosinophils # (Manual) Basophils # (Manual) PT INR Fibrinogen dRVVT Confirm Interp Factor V Activity POC ABG pH POC ABG pCO2 POC ABG pO2 ABG pO2 ABG HCO3 ABG Base Excess ABG Hemoglobin Oxyhemoglobin Sodium Potassium 3.4 L Chloride Carbon Dioxide BUN 25 H Creatinine 1.5 H Glucose 103 H POC Glucose 121 H 144 H Lactic Acid Calcium Phosphorus Magnesium Direct Bilirubin AST ALT Alkaline Phosphatase Lactate Dehydrogenase Troponin T C-Reactive Protein Total Protein Albumin Prealbumin Triglycerides Cholesterol LDL Cholesterol Direct HDL Cholesterol Urine pH Urine WBC (Auto) Urine Creatinine Urine Total Protein Fluid Total Protein Vancomycin Trough Rheumatoid Factor Complement C4 Miscellaneous Test Crossmatch 11/15/16 11/15/16 11/16/16 21:28 23:20 11:44 WBC RBC Hgb Hct MCV MCH MCHC RDW Plt Count Lymph % (Auto) [place] % (Auto) Lymph # [place] # Baso # Seg Neutrophils % Seg Neuts % (Manual) Lymphocytes % (Manual) Monocytes % (Manual) Eosinophils % (Manual) Basophils % (Manual) Nucleated RBC % Seg Neutrophils # Seg Neutrophils # Man Lymphocytes # (Manual) Monocytes # (Manual) Eosinophils # (Manual) Basophils # (Manual) PT INR Fibrinogen dRVVT Confirm Interp Factor V Activity POC ABG pH 7.462 H POC ABG pCO2 POC ABG pO2 71 L ABG pO2 ABG HCO3 ABG Base Excess ABG Hemoglobin Oxyhemoglobin Sodium Potassium Chloride Carbon Dioxide BUN Creatinine Glucose POC Glucose 116 H 133 H Lactic Acid Calcium Phosphorus Magnesium Direct Bilirubin AST ALT Alkaline Phosphatase Lactate Dehydrogenase Troponin T C-Reactive Protein Total Protein Albumin Prealbumin Triglycerides Cholesterol LDL Cholesterol Direct HDL Cholesterol Urine pH Urine WBC (Auto) Urine Creatinine Urine Total Protein Fluid Total Protein Vancomycin Trough Rheumatoid Factor Complement C4 Miscellaneous Test Crossmatch 11/16/16 11/16/16 11/16/16 12:20 17:05 23:35 WBC 11.7 H RBC 2.73 L Hgb 7.6 L Hct 23.7 L MCV MCH MCHC RDW 16.6 H Plt Count Lymph % (Auto) [place] % (Auto) Lymph # [place] # Baso # Seg Neutrophils % Seg Neuts % (Manual) Lymphocytes % (Manual) Monocytes % (Manual) Eosinophils % (Manual) Basophils % (Manual) Nucleated RBC % Seg Neutrophils # Seg Neutrophils # Man Lymphocytes # (Manual) Monocytes # (Manual) Eosinophils # (Manual) Basophils # (Manual) PT INR Fibrinogen dRVVT Confirm Interp Factor V Activity POC ABG pH POC ABG pCO2 POC ABG pO2 ABG pO2 ABG HCO3 ABG Base Excess ABG Hemoglobin Oxyhemoglobin Sodium Potassium Chloride Carbon Dioxide BUN Creatinine Glucose POC Glucose 154 H 125 H Lactic Acid Calcium Phosphorus Magnesium Direct Bilirubin AST ALT Alkaline Phosphatase Lactate Dehydrogenase Troponin T C-Reactive Protein Total Protein Albumin Prealbumin Triglycerides Cholesterol LDL Cholesterol Direct HDL Cholesterol Urine pH Urine WBC (Auto) Urine Creatinine Urine Total Protein Fluid Total Protein Vancomycin Trough Rheumatoid Factor Complement C4 Miscellaneous Test Crossmatch 11/17/16 11/17/16 11/17/16 03:20 03:20 03:20 WBC RBC 2.55 L Hgb 7.3 L Hct 21.9 L MCV MCH MCHC RDW 16.6 H Plt Count Lymph % (Auto) [place] % (Auto) 11.5 H Lymph # [place] # 1.1 H Baso # Seg Neutrophils % Seg Neuts % (Manual) Lymphocytes % (Manual) Monocytes % (Manual) Eosinophils % (Manual) Basophils % (Manual) Nucleated RBC % Seg Neutrophils # Seg Neutrophils # Man Lymphocytes # (Manual) Monocytes # (Manual) Eosinophils # (Manual) Basophils # (Manual) PT 16.8 H INR 1.37 H Fibrinogen dRVVT Confirm Interp Factor V Activity POC ABG pH POC ABG pCO2 POC ABG pO2 ABG pO2 ABG HCO3 ABG Base Excess ABG Hemoglobin Oxyhemoglobin Sodium Potassium 3.5 L Chloride Carbon Dioxide BUN 21 H Creatinine Glucose POC Glucose Lactic Acid Calcium 7.9 L Phosphorus Magnesium Direct Bilirubin AST ALT Alkaline Phosphatase Lactate Dehydrogenase Troponin T C-Reactive Protein Total Protein Albumin Prealbumin Triglycerides Cholesterol LDL Cholesterol Direct HDL Cholesterol Urine pH Urine WBC (Auto) Urine Creatinine Urine Total Protein Fluid Total Protein Vancomycin Trough Rheumatoid Factor Complement C4 Miscellaneous Test Crossmatch 11/17/16 11/17/16 11/17/16 06:34 11:21 21:22 WBC RBC Hgb Hct MCV MCH MCHC RDW Plt Count Lymph % (Auto) [place] % (Auto) Lymph # [place] # Baso # Seg Neutrophils % Seg Neuts % (Manual) Lymphocytes % (Manual) Monocytes % (Manual) Eosinophils % (Manual) Basophils % (Manual) Nucleated RBC % Seg Neutrophils # Seg Neutrophils # Man Lymphocytes # (Manual) Monocytes # (Manual) Eosinophils # (Manual) Basophils # (Manual) PT INR Fibrinogen dRVVT Confirm Interp Factor V Activity POC ABG pH 7.467 H POC ABG pCO2 POC ABG pO2 73 L ABG pO2 ABG HCO3 ABG Base Excess ABG Hemoglobin Oxyhemoglobin Sodium Potassium Chloride Carbon Dioxide BUN Creatinine Glucose POC Glucose 121 H 119 H Lactic Acid Calcium Phosphorus Magnesium Direct Bilirubin AST ALT Alkaline Phosphatase Lactate Dehydrogenase Troponin T C-Reactive Protein Total Protein Albumin Prealbumin Triglycerides Cholesterol LDL Cholesterol Direct HDL Cholesterol Urine pH Urine WBC (Auto) Urine Creatinine Urine Total Protein Fluid Total Protein Vancomycin Trough Rheumatoid Factor Complement C4 Miscellaneous Test Crossmatch 11/18/16 11/18/16 11/19/16 12:16 17:19 00:00 WBC RBC Hgb Hct MCV MCH MCHC RDW Plt Count Lymph % (Auto) [place] % (Auto) Lymph # [place] # Baso # Seg Neutrophils % Seg Neuts % (Manual) Lymphocytes % (Manual) Monocytes % (Manual) Eosinophils % (Manual) Basophils % (Manual) Nucleated RBC % Seg Neutrophils # Seg Neutrophils # Man Lymphocytes # (Manual) Monocytes # (Manual) Eosinophils # (Manual) Basophils # (Manual) PT INR Fibrinogen dRVVT Confirm Interp Factor V Activity POC ABG pH POC ABG pCO2 POC ABG pO2 ABG pO2 ABG HCO3 ABG Base Excess ABG Hemoglobin Oxyhemoglobin Sodium Potassium Chloride Carbon Dioxide BUN Creatinine Glucose POC Glucose 124 H 162 H 139 H Lactic Acid Calcium Phosphorus Magnesium Direct Bilirubin AST ALT Alkaline Phosphatase Lactate Dehydrogenase Troponin T C-Reactive Protein Total Protein Albumin Prealbumin Triglycerides Cholesterol LDL Cholesterol Direct HDL Cholesterol Urine pH Urine WBC (Auto) Urine Creatinine Urine Total Protein Fluid Total Protein Vancomycin Trough Rheumatoid Factor Complement C4 Miscellaneous Test Crossmatch 11/19/16 11/19/16 11/20/16 05:00 12:43 00:40 WBC RBC Hgb Hct MCV MCH MCHC RDW Plt Count Lymph % (Auto) [place] % (Auto) Lymph # [place] # Baso # Seg Neutrophils % Seg Neuts % (Manual) Lymphocytes % (Manual) Monocytes % (Manual) Eosinophils % (Manual) Basophils % (Manual) Nucleated RBC % Seg Neutrophils # Seg Neutrophils # Man Lymphocytes # (Manual) Monocytes # (Manual) Eosinophils # (Manual) Basophils # (Manual) PT INR Fibrinogen dRVVT Confirm Interp Factor V Activity POC ABG pH POC ABG pCO2 POC ABG pO2 ABG pO2 ABG HCO3 ABG Base Excess ABG Hemoglobin Oxyhemoglobin Sodium Potassium Chloride Carbon Dioxide BUN Creatinine Glucose POC Glucose 110 H 125 H 136 H Lactic Acid Calcium Phosphorus Magnesium Direct Bilirubin AST ALT Alkaline Phosphatase Lactate Dehydrogenase Troponin T C-Reactive Protein Total Protein Albumin Prealbumin Triglycerides Cholesterol LDL Cholesterol Direct HDL Cholesterol Urine pH Urine WBC (Auto) Urine Creatinine Urine Total Protein Fluid Total Protein Vancomycin Trough Rheumatoid Factor Complement C4 Miscellaneous Test Crossmatch 11/20/16 11/20/16 11/20/16 05:00 05:00 05:51 WBC 13.1 H RBC 2.74 L Hgb 7.7 L Hct 23.6 L MCV MCH MCHC RDW 16.9 H Plt Count Lymph % (Auto) [place] % (Auto) 10.8 H Lymph # [place] # 1.4 H Baso # Seg Neutrophils % Seg Neuts % (Manual) Lymphocytes % (Manual) Monocytes % (Manual) Eosinophils % (Manual) Basophils % (Manual) Nucleated RBC % Seg Neutrophils # 7.9 H Seg Neutrophils # Man Lymphocytes # (Manual) Monocytes # (Manual) Eosinophils # (Manual) Basophils # (Manual) PT INR Fibrinogen dRVVT Confirm Interp Factor V Activity POC ABG pH POC ABG pCO2 POC ABG pO2 ABG pO2 ABG HCO3 ABG Base Excess ABG Hemoglobin Oxyhemoglobin Sodium Potassium Chloride Carbon Dioxide BUN 31 H Creatinine 1.8 H Glucose 129 H POC Glucose 133 H Lactic Acid Calcium Phosphorus Magnesium Direct Bilirubin AST ALT Alkaline Phosphatase Lactate Dehydrogenase Troponin T C-Reactive Protein Total Protein Albumin Prealbumin Triglycerides Cholesterol LDL Cholesterol Direct HDL Cholesterol Urine pH Urine WBC (Auto) Urine Creatinine Urine Total Protein Fluid Total Protein Vancomycin Trough Rheumatoid Factor Complement C4 Miscellaneous Test Crossmatch 11/20/16 11/20/16 11/21/16 12:40 18:10 01:20 WBC RBC Hgb Hct MCV MCH MCHC RDW Plt Count Lymph % (Auto) [place] % (Auto) Lymph # [place] # Baso # Seg Neutrophils % Seg Neuts % (Manual) Lymphocytes % (Manual) Monocytes % (Manual) Eosinophils % (Manual) Basophils % (Manual) Nucleated RBC % Seg Neutrophils # Seg Neutrophils # Man Lymphocytes # (Manual) Monocytes # (Manual) Eosinophils # (Manual) Basophils # (Manual) PT INR Fibrinogen dRVVT Confirm Interp Factor V Activity POC ABG pH POC ABG pCO2 POC ABG pO2 ABG pO2 ABG HCO3 ABG Base Excess ABG Hemoglobin Oxyhemoglobin Sodium Potassium Chloride Carbon Dioxide BUN Creatinine Glucose POC Glucose 134 H 138 H 136 H Lactic Acid Calcium Phosphorus Magnesium Direct Bilirubin AST ALT Alkaline Phosphatase Lactate Dehydrogenase Troponin T C-Reactive Protein Total Protein Albumin Prealbumin Triglycerides Cholesterol LDL Cholesterol Direct HDL Cholesterol Urine pH Urine WBC (Auto) Urine Creatinine Urine Total Protein Fluid Total Protein Vancomycin Trough Rheumatoid Factor Complement C4 Miscellaneous Test Crossmatch 11/21/16 11/21/16 11/21/16 07:04 07:45 07:45 WBC 22.0 H RBC 2.91 L Hgb 8.2 L Hct 25.4 L MCV MCH MCHC RDW 17.1 H Plt Count Lymph % (Auto) [place] % (Auto) Lymph # [place] # Baso # Seg Neutrophils % Seg Neuts % (Manual) Lymphocytes % (Manual) 8.0 L Monocytes % (Manual) Eosinophils % (Manual) Basophils % (Manual) Nucleated RBC % Seg Neutrophils # Seg Neutrophils # Man 14.7 H Lymphocytes # (Manual) Monocytes # (Manual) 1.1 H Eosinophils # (Manual) Basophils # (Manual) PT INR Fibrinogen dRVVT Confirm Interp Factor V Activity POC ABG pH POC ABG pCO2 POC ABG pO2 ABG pO2 ABG HCO3 ABG Base Excess ABG Hemoglobin Oxyhemoglobin Sodium Potassium Chloride Carbon Dioxide BUN 42 H Creatinine 2.0 H Glucose POC Glucose 108 H Lactic Acid Calcium Phosphorus Magnesium Direct Bilirubin AST ALT Alkaline Phosphatase Lactate Dehydrogenase Troponin T C-Reactive Protein Total Protein Albumin Prealbumin Triglycerides Cholesterol LDL Cholesterol Direct HDL Cholesterol Urine pH Urine WBC (Auto) Urine Creatinine Urine Total Protein Fluid Total Protein Vancomycin Trough Rheumatoid Factor Complement C4 Miscellaneous Test Crossmatch 11/21/16 11/21/16 11/21/16 08:38 10:09 11:20 WBC RBC Hgb Hct MCV MCH MCHC RDW Plt Count Lymph % (Auto) [place] % (Auto) Lymph # [place] # Baso # Seg Neutrophils % Seg Neuts % (Manual) Lymphocytes % (Manual) Monocytes % (Manual) Eosinophils % (Manual) Basophils % (Manual) Nucleated RBC % Seg Neutrophils # Seg Neutrophils # Man Lymphocytes # (Manual) Monocytes # (Manual) Eosinophils # (Manual) Basophils # (Manual) PT INR Fibrinogen dRVVT Confirm Interp Factor V Activity POC ABG pH 7.346 L POC ABG pCO2 34.4 L POC ABG pO2 314 H ABG pO2 ABG HCO3 ABG Base Excess ABG Hemoglobin Oxyhemoglobin Sodium Potassium Chloride Carbon Dioxide BUN Creatinine Glucose POC Glucose 195 H 153 H Lactic Acid Calcium Phosphorus Magnesium Direct Bilirubin AST ALT Alkaline Phosphatase Lactate Dehydrogenase Troponin T C-Reactive Protein Total Protein Albumin Prealbumin Triglycerides Cholesterol LDL Cholesterol Direct HDL Cholesterol Urine pH Urine WBC (Auto) Urine Creatinine Urine Total Protein Fluid Total Protein Vancomycin Trough Rheumatoid Factor Complement C4 Miscellaneous Test Crossmatch 11/21/16 11/22/16 11/22/16 23:37 04:48 05:00 WBC 29.7 H RBC 2.73 L Hgb 7.5 L Hct 24.2 L MCV MCH 27 L MCHC RDW 17.4 H Plt Count Lymph % (Auto) [place] % (Auto) Lymph # [place] # Baso # Seg Neutrophils % Seg Neuts % (Manual) Lymphocytes % (Manual) 7.0 L Monocytes % (Manual) Eosinophils % (Manual) Basophils % (Manual) Nucleated RBC % Seg Neutrophils # Seg Neutrophils # Man 15.4 H Lymphocytes # (Manual) Monocytes # (Manual) Eosinophils # (Manual) Basophils # (Manual) PT INR Fibrinogen dRVVT Confirm Interp Factor V Activity POC ABG pH POC ABG pCO2 24.6 L POC ABG pO2 189 H ABG pO2 ABG HCO3 ABG Base Excess ABG Hemoglobin Oxyhemoglobin Sodium Potassium Chloride Carbon Dioxide BUN Creatinine Glucose POC Glucose 65 L Lactic Acid Calcium Phosphorus Magnesium Direct Bilirubin AST ALT Alkaline Phosphatase Lactate Dehydrogenase Troponin T C-Reactive Protein Total Protein Albumin Prealbumin Triglycerides Cholesterol LDL Cholesterol Direct HDL Cholesterol Urine pH Urine WBC (Auto) Urine Creatinine Urine Total Protein Fluid Total Protein Vancomycin Trough Rheumatoid Factor Complement C4 Miscellaneous Test Crossmatch 11/22/16 11/23/16 11/23/16 05:00 03:44 04:06 WBC RBC 2.52 L Hgb 7.2 L Hct 21.5 L MCV MCH MCHC RDW 17.1 H Plt Count Lymph % (Auto) [place] % (Auto) 12.4 H Lymph # [place] # 1.4 H Baso # Seg Neutrophils % Seg Neuts % (Manual) Lymphocytes % (Manual) Monocytes % (Manual) Eosinophils % (Manual) Basophils % (Manual) Nucleated RBC % Seg Neutrophils # Seg Neutrophils # Man Lymphocytes # (Manual) Monocytes # (Manual) Eosinophils # (Manual) Basophils # (Manual) PT INR Fibrinogen dRVVT Confirm Interp Factor V Activity POC ABG pH 7.493 H POC ABG pCO2 29.5 L POC ABG pO2 49 L ABG pO2 ABG HCO3 ABG Base Excess ABG Hemoglobin Oxyhemoglobin Sodium 134 L Potassium Chloride 95.9 L Carbon Dioxide 14 L D BUN 51 H Creatinine 2.6 H Glucose POC Glucose Lactic Acid Calcium Phosphorus Magnesium Direct Bilirubin AST ALT Alkaline Phosphatase Lactate Dehydrogenase Troponin T C-Reactive Protein Total Protein Albumin Prealbumin Triglycerides Cholesterol LDL Cholesterol Direct HDL Cholesterol Urine pH Urine WBC (Auto) Urine Creatinine Urine Total Protein Fluid Total Protein Vancomycin Trough Rheumatoid Factor Complement C4 Miscellaneous Test Crossmatch 11/23/16 11/23/16 11/24/16 04:06 11:29 06:39 WBC RBC Hgb Hct MCV MCH MCHC RDW Plt Count Lymph % (Auto) [place] % (Auto) Lymph # [place] # Baso # Seg Neutrophils % Seg Neuts % (Manual) Lymphocytes % (Manual) Monocytes % (Manual) Eosinophils % (Manual) Basophils % (Manual) Nucleated RBC % Seg Neutrophils # Seg Neutrophils # Man Lymphocytes # (Manual) Monocytes # (Manual) Eosinophils # (Manual) Basophils # (Manual) PT INR Fibrinogen dRVVT Confirm Interp Factor V Activity POC ABG pH POC ABG pCO2 POC ABG pO2 ABG pO2 ABG HCO3 ABG Base Excess ABG Hemoglobin Oxyhemoglobin Sodium 136 L Potassium Chloride 95.2 L Carbon Dioxide BUN 60 H Creatinine 2.9 H Glucose POC Glucose 69 L 305 H Lactic Acid Calcium Phosphorus Magnesium 1.60 L Direct Bilirubin AST ALT Alkaline Phosphatase Lactate Dehydrogenase Troponin T C-Reactive Protein Total Protein Albumin Prealbumin Triglycerides Cholesterol LDL Cholesterol Direct HDL Cholesterol Urine pH Urine WBC (Auto) Urine Creatinine Urine Total Protein Fluid Total Protein Vancomycin Trough Rheumatoid Factor Complement C4 Miscellaneous Test Crossmatch 11/24/16 11/24/16 11/24/16 06:43 08:08 08:08 WBC 11.2 H RBC 2.47 L Hgb 6.8 L Hct 20.6 L MCV MCH MCHC RDW 17.0 H Plt Count Lymph % (Auto) [place] % (Auto) 10.3 H Lymph # [place] # 1.2 H Baso # Seg Neutrophils % Seg Neuts % (Manual) Lymphocytes % (Manual) Monocytes % (Manual) Eosinophils % (Manual) Basophils % (Manual) Nucleated RBC % Seg Neutrophils # Seg Neutrophils # Man Lymphocytes # (Manual) Monocytes # (Manual) Eosinophils # (Manual) Basophils # (Manual) PT INR Fibrinogen dRVVT Confirm Interp Factor V Activity POC ABG pH POC ABG pCO2 POC ABG pO2 ABG pO2 ABG HCO3 ABG Base Excess ABG Hemoglobin Oxyhemoglobin Sodium 135 L Potassium Chloride 96.3 L Carbon Dioxide BUN 61 H Creatinine 3.1 H Glucose POC Glucose 62 L Lactic Acid Calcium 8.2 L Phosphorus Magnesium Direct Bilirubin AST ALT Alkaline Phosphatase Lactate Dehydrogenase Troponin T C-Reactive Protein Total Protein Albumin Prealbumin Triglycerides Cholesterol LDL Cholesterol Direct HDL Cholesterol Urine pH Urine WBC (Auto) Urine Creatinine Urine Total Protein Fluid Total Protein Vancomycin Trough Rheumatoid Factor Complement C4 Miscellaneous Test Crossmatch 11/24/16 11/24/16 11/24/16 08:34 11:20 12:41 WBC RBC Hgb Hct MCV MCH MCHC RDW Plt Count Lymph % (Auto) [place] % (Auto) Lymph # [place] # Baso # Seg Neutrophils % Seg Neuts % (Manual) Lymphocytes % (Manual) Monocytes % (Manual) Eosinophils % (Manual) Basophils % (Manual) Nucleated RBC % Seg Neutrophils # Seg Neutrophils # Man Lymphocytes # (Manual) Monocytes # (Manual) Eosinophils # (Manual) Basophils # (Manual) PT INR Fibrinogen dRVVT Confirm Interp Factor V Activity POC ABG pH POC ABG pCO2 POC ABG pO2 ABG pO2 ABG HCO3 ABG Base Excess ABG Hemoglobin Oxyhemoglobin Sodium Potassium Chloride Carbon Dioxide BUN Creatinine Glucose POC Glucose 108 H Lactic Acid Calcium Phosphorus Magnesium 1.60 L Direct Bilirubin AST ALT Alkaline Phosphatase Lactate Dehydrogenase Troponin T C-Reactive Protein Total Protein Albumin Prealbumin Triglycerides Cholesterol LDL Cholesterol Direct HDL Cholesterol Urine pH Urine WBC (Auto) Urine Creatinine Urine Total Protein Fluid Total Protein Vancomycin Trough Rheumatoid Factor Complement C4 Miscellaneous Test Crossmatch See Detail 11/25/16 11/25/16 11/25/16 00:03 04:42 04:42 WBC RBC 3.03 L Hgb 8.6 L Hct 25.3 L MCV MCH MCHC RDW 16.2 H Plt Count Lymph % (Auto) [place] % (Auto) 8.1 H Lymph # [place] # Baso # Seg Neutrophils % 71.3 H Seg Neuts % (Manual) Lymphocytes % (Manual) Monocytes % (Manual) Eosinophils % (Manual) Basophils % (Manual) Nucleated RBC % Seg Neutrophils # Seg Neutrophils # Man Lymphocytes # (Manual) Monocytes # (Manual) Eosinophils # (Manual) Basophils # (Manual) PT INR Fibrinogen dRVVT Confirm Interp Factor V Activity POC ABG pH POC ABG pCO2 POC ABG pO2 ABG pO2 ABG HCO3 ABG Base Excess ABG Hemoglobin Oxyhemoglobin Sodium Potassium Chloride Carbon Dioxide BUN 61 H Creatinine 3.0 H Glucose 102 H POC Glucose 113 H Lactic Acid Calcium 8.2 L Phosphorus Magnesium Direct Bilirubin AST ALT Alkaline Phosphatase 142 H Lactate Dehydrogenase Troponin T C-Reactive Protein Total Protein 5.7 L Albumin 1.5 L Prealbumin Triglycerides Cholesterol LDL Cholesterol Direct HDL Cholesterol Urine pH Urine WBC (Auto) Urine Creatinine Urine Total Protein Fluid Total Protein Vancomycin Trough Rheumatoid Factor Complement C4 Miscellaneous Test Crossmatch 11/25/16 11/25/16 11/25/16 05:12 11:31 14:12 WBC RBC Hgb Hct MCV MCH MCHC RDW Plt Count Lymph % (Auto) [place] % (Auto) Lymph # [place] # Baso # Seg Neutrophils % Seg Neuts % (Manual) Lymphocytes % (Manual) Monocytes % (Manual) Eosinophils % (Manual) Basophils % (Manual) Nucleated RBC % Seg Neutrophils # Seg Neutrophils # Man Lymphocytes # (Manual) Monocytes # (Manual) Eosinophils # (Manual) Basophils # (Manual) PT INR Fibrinogen dRVVT Confirm Interp Factor V Activity POC ABG pH 7.487 H POC ABG pCO2 POC ABG pO2 153 H ABG pO2 ABG HCO3 ABG Base Excess ABG Hemoglobin Oxyhemoglobin Sodium Potassium Chloride Carbon Dioxide BUN Creatinine Glucose POC Glucose 131 H 140 H Lactic Acid Calcium Phosphorus Magnesium Direct Bilirubin AST ALT Alkaline Phosphatase Lactate Dehydrogenase Troponin T C-Reactive Protein Total Protein Albumin Prealbumin Triglycerides Cholesterol LDL Cholesterol Direct HDL Cholesterol Urine pH Urine WBC (Auto) Urine Creatinine Urine Total Protein Fluid Total Protein Vancomycin Trough Rheumatoid Factor Complement C4 Miscellaneous Test Crossmatch 11/25/16 11/26/16 11/26/16 17:23 00:09 05:13 WBC RBC 2.94 L Hgb 8.4 L Hct 24.6 L MCV MCH MCHC RDW 16.4 H Plt Count Lymph % (Auto) [place] % (Auto) 12.3 H Lymph # [place] # 1.1 H Baso # Seg Neutrophils % Seg Neuts % (Manual) Lymphocytes % (Manual) Monocytes % (Manual) Eosinophils % (Manual) Basophils % (Manual) Nucleated RBC % Seg Neutrophils # Seg Neutrophils # Man Lymphocytes # (Manual) Monocytes # (Manual) Eosinophils # (Manual) Basophils # (Manual) PT INR Fibrinogen dRVVT Confirm Interp Factor V Activity POC ABG pH POC ABG pCO2 POC ABG pO2 ABG pO2 ABG HCO3 ABG Base Excess ABG Hemoglobin Oxyhemoglobin Sodium Potassium Chloride Carbon Dioxide BUN Creatinine Glucose POC Glucose 146 H 112 H Lactic Acid Calcium Phosphorus Magnesium Direct Bilirubin AST ALT Alkaline Phosphatase Lactate Dehydrogenase Troponin T C-Reactive Protein Total Protein Albumin Prealbumin Triglycerides Cholesterol LDL Cholesterol Direct HDL Cholesterol Urine pH Urine WBC (Auto) Urine Creatinine Urine Total Protein Fluid Total Protein Vancomycin Trough Rheumatoid Factor Complement C4 Miscellaneous Test Crossmatch 11/26/16 11/26/16 11/26/16 05:13 05:28 11:53 WBC RBC Hgb Hct MCV MCH MCHC RDW Plt Count Lymph % (Auto) [place] % (Auto) Lymph # [place] # Baso # Seg Neutrophils % Seg Neuts % (Manual) Lymphocytes % (Manual) Monocytes % (Manual) Eosinophils % (Manual) Basophils % (Manual) Nucleated RBC % Seg Neutrophils # Seg Neutrophils # Man Lymphocytes # (Manual) Monocytes # (Manual) Eosinophils # (Manual) Basophils # (Manual) PT INR Fibrinogen dRVVT Confirm Interp Factor V Activity POC ABG pH POC ABG pCO2 POC ABG pO2 ABG pO2 ABG HCO3 ABG Base Excess ABG Hemoglobin Oxyhemoglobin Sodium Potassium Chloride 97.8 L Carbon Dioxide BUN 37 H Creatinine 2.0 H Glucose 109 H POC Glucose 117 H 111 H Lactic Acid Calcium 7.9 L Phosphorus 1.80 L D Magnesium Direct Bilirubin AST ALT Alkaline Phosphatase Lactate Dehydrogenase Troponin T C-Reactive Protein Total Protein Albumin Prealbumin Triglycerides Cholesterol LDL Cholesterol Direct HDL Cholesterol Urine pH Urine WBC (Auto) Urine Creatinine Urine Total Protein Fluid Total Protein Vancomycin Trough Rheumatoid Factor Complement C4 Miscellaneous Test Crossmatch 11/26/16 11/27/16 11/27/16 17:14 04:50 06:02 WBC RBC Hgb Hct MCV MCH MCHC RDW Plt Count Lymph % (Auto) [place] % (Auto) Lymph # [place] # Baso # Seg Neutrophils % Seg Neuts % (Manual) Lymphocytes % (Manual) Monocytes % (Manual) Eosinophils % (Manual) Basophils % (Manual) Nucleated RBC % Seg Neutrophils # Seg Neutrophils # Man Lymphocytes # (Manual) Monocytes # (Manual) Eosinophils # (Manual) Basophils # (Manual) PT INR Fibrinogen dRVVT Confirm Interp Factor V Activity POC ABG pH POC ABG pCO2 POC ABG pO2 ABG pO2 75.2 L ABG HCO3 26.4 H ABG Base Excess ABG Hemoglobin 7.6 L Oxyhemoglobin 94.8 L Sodium Potassium Chloride Carbon Dioxide BUN 49 H Creatinine 2.3 H Glucose POC Glucose 115 H Lactic Acid Calcium Phosphorus 1.50 L Magnesium Direct Bilirubin AST ALT Alkaline Phosphatase Lactate Dehydrogenase Troponin T C-Reactive Protein Total Protein Albumin Prealbumin Triglycerides Cholesterol LDL Cholesterol Direct HDL Cholesterol Urine pH Urine WBC (Auto) Urine Creatinine Urine Total Protein Fluid Total Protein Vancomycin Trough Rheumatoid Factor Complement C4 Miscellaneous Test Crossmatch 11/27/16 11/27/16 11/27/16 06:02 11:25 17:25 WBC 11.6 H RBC 2.75 L Hgb 7.6 L Hct 23.4 L MCV MCH MCHC RDW 16.5 H Plt Count Lymph % (Auto) [place] % (Auto) Lymph # [place] # Baso # Seg Neutrophils % Seg Neuts % (Manual) Lymphocytes % (Manual) Monocytes % (Manual) Eosinophils % (Manual) Basophils % (Manual) Nucleated RBC % Seg Neutrophils # Seg Neutrophils # Man Lymphocytes # (Manual) Monocytes # (Manual) Eosinophils # (Manual) Basophils # (Manual) PT INR Fibrinogen dRVVT Confirm Interp Factor V Activity POC ABG pH POC ABG pCO2 POC ABG pO2 ABG pO2 ABG HCO3 ABG Base Excess ABG Hemoglobin Oxyhemoglobin Sodium Potassium Chloride Carbon Dioxide BUN Creatinine Glucose POC Glucose 114 H 126 H Lactic Acid Calcium Phosphorus Magnesium Direct Bilirubin AST ALT Alkaline Phosphatase Lactate Dehydrogenase Troponin T C-Reactive Protein Total Protein Albumin Prealbumin Triglycerides Cholesterol LDL Cholesterol Direct HDL Cholesterol Urine pH Urine WBC (Auto) Urine Creatinine Urine Total Protein Fluid Total Protein Vancomycin Trough Rheumatoid Factor Complement C4 Miscellaneous Test Crossmatch 11/28/16 11/28/16 11/28/16 04:45 05:33 05:44 WBC RBC Hgb Hct MCV MCH MCHC RDW Plt Count Lymph % (Auto) [place] % (Auto) Lymph # [place] # Baso # Seg Neutrophils % Seg Neuts % (Manual) Lymphocytes % (Manual) Monocytes % (Manual) Eosinophils % (Manual) Basophils % (Manual) Nucleated RBC % Seg Neutrophils # Seg Neutrophils # Man Lymphocytes # (Manual) Monocytes # (Manual) Eosinophils # (Manual) Basophils # (Manual) PT INR Fibrinogen dRVVT Confirm Interp Factor V Activity POC ABG pH POC ABG pCO2 POC ABG pO2 ABG pO2 99.3 H ABG HCO3 ABG Base Excess ABG Hemoglobin 8.3 L Oxyhemoglobin Sodium Potassium Chloride Carbon Dioxide BUN 63 H Creatinine 2.4 H Glucose 102 H POC Glucose 108 H Lactic Acid Calcium Phosphorus 1.80 L Magnesium Direct Bilirubin AST ALT Alkaline Phosphatase Lactate Dehydrogenase Troponin T C-Reactive Protein Total Protein Albumin Prealbumin Triglycerides Cholesterol LDL Cholesterol Direct HDL Cholesterol Urine pH Urine WBC (Auto) Urine Creatinine Urine Total Protein Fluid Total Protein Vancomycin Trough Rheumatoid Factor Complement C4 Miscellaneous Test Crossmatch 11/28/16 11/28/16 11/28/16 12:31 16:09 23:46 WBC RBC Hgb Hct MCV MCH MCHC RDW Plt Count Lymph % (Auto) [place] % (Auto) Lymph # [place] # Baso # Seg Neutrophils % Seg Neuts % (Manual) Lymphocytes % (Manual) Monocytes % (Manual) Eosinophils % (Manual) Basophils % (Manual) Nucleated RBC % Seg Neutrophils # Seg Neutrophils # Man Lymphocytes # (Manual) Monocytes # (Manual) Eosinophils # (Manual) Basophils # (Manual) PT INR Fibrinogen dRVVT Confirm Interp Factor V Activity POC ABG pH POC ABG pCO2 POC ABG pO2 ABG pO2 ABG HCO3 ABG Base Excess ABG Hemoglobin Oxyhemoglobin Sodium Potassium Chloride Carbon Dioxide BUN Creatinine Glucose POC Glucose 126 H 111 H 119 H Lactic Acid Calcium Phosphorus Magnesium Direct Bilirubin AST ALT Alkaline Phosphatase Lactate Dehydrogenase Troponin T C-Reactive Protein Total Protein Albumin Prealbumin Triglycerides Cholesterol LDL Cholesterol Direct HDL Cholesterol Urine pH Urine WBC (Auto) Urine Creatinine Urine Total Protein Fluid Total Protein Vancomycin Trough Rheumatoid Factor Complement C4 Miscellaneous Test Crossmatch 11/29/16 11/29/16 11/29/16 03:33 04:52 05:10 WBC RBC Hgb Hct MCV MCH MCHC RDW Plt Count Lymph % (Auto) [place] % (Auto) Lymph # [place] # Baso # Seg Neutrophils % Seg Neuts % (Manual) Lymphocytes % (Manual) Monocytes % (Manual) Eosinophils % (Manual) Basophils % (Manual) Nucleated RBC % Seg Neutrophils # Seg Neutrophils # Man Lymphocytes # (Manual) Monocytes # (Manual) Eosinophils # (Manual) Basophils # (Manual) PT INR Fibrinogen dRVVT Confirm Interp Factor V Activity POC ABG pH POC ABG pCO2 POC ABG pO2 ABG pO2 ABG HCO3 ABG Base Excess ABG Hemoglobin 7.0 L Oxyhemoglobin 94.9 L Sodium Potassium Chloride Carbon Dioxide BUN 73 H Creatinine 2.7 H Glucose POC Glucose 108 H Lactic Acid Calcium Phosphorus Magnesium Direct Bilirubin AST ALT Alkaline Phosphatase Lactate Dehydrogenase Troponin T C-Reactive Protein Total Protein Albumin Prealbumin Triglycerides Cholesterol LDL Cholesterol Direct HDL Cholesterol Urine pH Urine WBC (Auto) Urine Creatinine Urine Total Protein Fluid Total Protein Vancomycin Trough Rheumatoid Factor Complement C4 Miscellaneous Test Crossmatch 11/29/16 11/29/16 11/29/16 12:16 18:05 23:46 WBC RBC Hgb Hct MCV MCH MCHC RDW Plt Count Lymph % (Auto) [place] % (Auto) Lymph # [place] # Baso # Seg Neutrophils % Seg Neuts % (Manual) Lymphocytes % (Manual) Monocytes % (Manual) Eosinophils % (Manual) Basophils % (Manual) Nucleated RBC % Seg Neutrophils # Seg Neutrophils # Man Lymphocytes # (Manual) Monocytes # (Manual) Eosinophils # (Manual) Basophils # (Manual) PT INR Fibrinogen dRVVT Confirm Interp Factor V Activity POC ABG pH POC ABG pCO2 POC ABG pO2 ABG pO2 ABG HCO3 ABG Base Excess ABG Hemoglobin Oxyhemoglobin Sodium Potassium Chloride Carbon Dioxide BUN Creatinine Glucose POC Glucose 133 H 146 H 141 H Lactic Acid Calcium Phosphorus Magnesium Direct Bilirubin AST ALT Alkaline Phosphatase Lactate Dehydrogenase Troponin T C-Reactive Protein Total Protein Albumin Prealbumin Triglycerides Cholesterol LDL Cholesterol Direct HDL Cholesterol Urine pH Urine WBC (Auto) Urine Creatinine Urine Total Protein Fluid Total Protein Vancomycin Trough Rheumatoid Factor Complement C4 Miscellaneous Test Crossmatch 11/30/16 11/30/16 11/30/16 04:17 04:17 04:32 WBC 12.0 H RBC 2.80 L Hgb 7.8 L Hct 23.6 L MCV MCH MCHC RDW 16.6 H Plt Count Lymph % (Auto) [place] % (Auto) 11.3 H Lymph # [place] # 1.4 H Baso # Seg Neutrophils % Seg Neuts % (Manual) Lymphocytes % (Manual) Monocytes % (Manual) Eosinophils % (Manual) Basophils % (Manual) Nucleated RBC % Seg Neutrophils # 8.2 H Seg Neutrophils # Man Lymphocytes # (Manual) Monocytes # (Manual) Eosinophils # (Manual) Basophils # (Manual) PT INR Fibrinogen dRVVT Confirm Interp Factor V Activity POC ABG pH POC ABG pCO2 POC ABG pO2 ABG pO2 ABG HCO3 ABG Base Excess ABG Hemoglobin Oxyhemoglobin Sodium 169 H* D Potassium 5.1 H Chloride 121.5 H Carbon Dioxide BUN 34 H Creatinine 1.3 H D Glucose 133 H POC Glucose 131 H Lactic Acid Calcium 10.3 H Phosphorus Magnesium Direct Bilirubin AST ALT Alkaline Phosphatase Lactate Dehydrogenase Troponin T C-Reactive Protein Total Protein Albumin Prealbumin Triglycerides Cholesterol LDL Cholesterol Direct HDL Cholesterol Urine pH Urine WBC (Auto) Urine Creatinine Urine Total Protein Fluid Total Protein Vancomycin Trough Rheumatoid Factor Complement C4 Miscellaneous Test Crossmatch 11/30/16 11/30/16 11/30/16 05:45 11:10 17:26 WBC RBC Hgb Hct MCV MCH MCHC RDW Plt Count Lymph % (Auto) [place] % (Auto) Lymph # [place] # Baso # Seg Neutrophils % Seg Neuts % (Manual) Lymphocytes % (Manual) Monocytes % (Manual) Eosinophils % (Manual) Basophils % (Manual) Nucleated RBC % Seg Neutrophils # Seg Neutrophils # Man Lymphocytes # (Manual) Monocytes # (Manual) Eosinophils # (Manual) Basophils # (Manual) PT INR Fibrinogen dRVVT Confirm Interp Factor V Activity POC ABG pH POC ABG pCO2 POC ABG pO2 ABG pO2 ABG HCO3 ABG Base Excess ABG Hemoglobin Oxyhemoglobin Sodium Potassium Chloride Carbon Dioxide BUN 45 H Creatinine 1.6 H Glucose 131 H POC Glucose 146 H 134 H Lactic Acid Calcium Phosphorus Magnesium Direct Bilirubin AST ALT Alkaline Phosphatase Lactate Dehydrogenase Troponin T C-Reactive Protein Total Protein Albumin Prealbumin Triglycerides Cholesterol LDL Cholesterol Direct HDL Cholesterol Urine pH Urine WBC (Auto) Urine Creatinine Urine Total Protein Fluid Total Protein Vancomycin Trough Rheumatoid Factor Complement C4 Miscellaneous Test Crossmatch 11/30/16 12/01/16 12/01/16 23:35 00:06 03:35 WBC RBC Hgb Hct MCV MCH MCHC RDW Plt Count Lymph % (Auto) [place] % (Auto) Lymph # [place] # Baso # Seg Neutrophils % Seg Neuts % (Manual) Lymphocytes % (Manual) Monocytes % (Manual) Eosinophils % (Manual) Basophils % (Manual) Nucleated RBC % Seg Neutrophils # Seg Neutrophils # Man Lymphocytes # (Manual) Monocytes # (Manual) Eosinophils # (Manual) Basophils # (Manual) PT INR Fibrinogen dRVVT Confirm Interp Factor V Activity POC ABG pH POC ABG pCO2 POC ABG pO2 ABG pO2 ABG HCO3 ABG Base Excess ABG Hemoglobin 6.9 L Oxyhemoglobin Sodium Potassium Chloride Carbon Dioxide BUN 58 H Creatinine 1.8 H Glucose 146 H POC Glucose 151 H Lactic Acid Calcium Phosphorus Magnesium Direct Bilirubin AST ALT Alkaline Phosphatase Lactate Dehydrogenase Troponin T C-Reactive Protein Total Protein Albumin Prealbumin Triglycerides Cholesterol LDL Cholesterol Direct HDL Cholesterol Urine pH Urine WBC (Auto) Urine Creatinine Urine Total Protein Fluid Total Protein Vancomycin Trough Rheumatoid Factor Complement C4 Miscellaneous Test Crossmatch 12/01/16 12/01/16 12/01/16 03:35 05:47 11:52 WBC 12.3 H RBC 2.82 L Hgb 7.8 L Hct 23.7 L MCV MCH MCHC RDW 16.7 H Plt Count Lymph % (Auto) [place] % (Auto) 9.8 H Lymph # [place] # 1.2 H Baso # Seg Neutrophils % Seg Neuts % (Manual) Lymphocytes % (Manual) Monocytes % (Manual) Eosinophils % (Manual) Basophils % (Manual) Nucleated RBC % Seg Neutrophils # 8.4 H Seg Neutrophils # Man Lymphocytes # (Manual) Monocytes # (Manual) Eosinophils # (Manual) Basophils # (Manual) PT INR Fibrinogen dRVVT Confirm Interp Factor V Activity POC ABG pH POC ABG pCO2 POC ABG pO2 ABG pO2 ABG HCO3 ABG Base Excess ABG Hemoglobin Oxyhemoglobin Sodium Potassium Chloride Carbon Dioxide BUN Creatinine Glucose POC Glucose 152 H 152 H Lactic Acid Calcium Phosphorus Magnesium Direct Bilirubin AST ALT Alkaline Phosphatase Lactate Dehydrogenase Troponin T C-Reactive Protein Total Protein Albumin Prealbumin Triglycerides Cholesterol LDL Cholesterol Direct HDL Cholesterol Urine pH Urine WBC (Auto) Urine Creatinine Urine Total Protein Fluid Total Protein Vancomycin Trough Rheumatoid Factor Complement C4 Miscellaneous Test Crossmatch 12/01/16 12/01/16 12/02/16 17:40 23:41 05:00 WBC RBC Hgb Hct MCV MCH MCHC RDW Plt Count Lymph % (Auto) [place] % (Auto) Lymph # [place] # Baso # Seg Neutrophils % Seg Neuts % (Manual) Lymphocytes % (Manual) Monocytes % (Manual) Eosinophils % (Manual) Basophils % (Manual) Nucleated RBC % Seg Neutrophils # Seg Neutrophils # Man Lymphocytes # (Manual) Monocytes # (Manual) Eosinophils # (Manual) Basophils # (Manual) PT INR Fibrinogen dRVVT Confirm Interp Factor V Activity POC ABG pH POC ABG pCO2 POC ABG pO2 ABG pO2 ABG HCO3 ABG Base Excess ABG Hemoglobin Oxyhemoglobin Sodium Potassium Chloride Carbon Dioxide BUN 45 H Creatinine Glucose 115 H POC Glucose 140 H 144 H Lactic Acid Calcium Phosphorus Magnesium Direct Bilirubin AST ALT Alkaline Phosphatase Lactate Dehydrogenase Troponin T C-Reactive Protein Total Protein Albumin Prealbumin Triglycerides Cholesterol LDL Cholesterol Direct HDL Cholesterol Urine pH Urine WBC (Auto) Urine Creatinine Urine Total Protein Fluid Total Protein Vancomycin Trough Rheumatoid Factor Complement C4 Miscellaneous Test Crossmatch 12/02/16 12/02/16 12/02/16 05:31 11:20 17:38 WBC RBC Hgb Hct MCV MCH MCHC RDW Plt Count Lymph % (Auto) [place] % (Auto) Lymph # [place] # Baso # Seg Neutrophils % Seg Neuts % (Manual) Lymphocytes % (Manual) Monocytes % (Manual) Eosinophils % (Manual) Basophils % (Manual) Nucleated RBC % Seg Neutrophils # Seg Neutrophils # Man Lymphocytes # (Manual) Monocytes # (Manual) Eosinophils # (Manual) Basophils # (Manual) PT INR Fibrinogen dRVVT Confirm Interp Factor V Activity POC ABG pH POC ABG pCO2 POC ABG pO2 ABG pO2 ABG HCO3 ABG Base Excess ABG Hemoglobin Oxyhemoglobin Sodium Potassium Chloride Carbon Dioxide BUN Creatinine Glucose POC Glucose 136 H 177 H 139 H Lactic Acid Calcium Phosphorus Magnesium Direct Bilirubin AST ALT Alkaline Phosphatase Lactate Dehydrogenase Troponin T C-Reactive Protein Total Protein Albumin Prealbumin Triglycerides Cholesterol LDL Cholesterol Direct HDL Cholesterol Urine pH Urine WBC (Auto) Urine Creatinine Urine Total Protein Fluid Total Protein Vancomycin Trough Rheumatoid Factor Complement C4 Miscellaneous Test Crossmatch 12/02/16 12/03/16 12/03/16 23:43 04:00 04:00 WBC 20.4 H RBC 2.74 L Hgb 7.4 L Hct 23.6 L MCV MCH 27 L MCHC RDW 17.1 H Plt Count Lymph % (Auto) [place] % (Auto) Lymph # [place] # Baso # Seg Neutrophils % Seg Neuts % (Manual) 31.0 L Lymphocytes % (Manual) Monocytes % (Manual) Eosinophils % (Manual) Basophils % (Manual) Nucleated RBC % Seg Neutrophils # Seg Neutrophils # Man Lymphocytes # (Manual) Monocytes # (Manual) Eosinophils # (Manual) Basophils # (Manual) PT INR Fibrinogen dRVVT Confirm Interp Factor V Activity POC ABG pH POC ABG pCO2 POC ABG pO2 ABG pO2 ABG HCO3 ABG Base Excess ABG Hemoglobin Oxyhemoglobin Sodium Potassium Chloride Carbon Dioxide BUN 61 H Creatinine 1.6 H Glucose 119 H POC Glucose 158 H Lactic Acid Calcium Phosphorus Magnesium Direct Bilirubin AST ALT Alkaline Phosphatase Lactate Dehydrogenase Troponin T C-Reactive Protein Total Protein Albumin Prealbumin Triglycerides Cholesterol LDL Cholesterol Direct HDL Cholesterol Urine pH Urine WBC (Auto) Urine Creatinine Urine Total Protein Fluid Total Protein Vancomycin Trough Rheumatoid Factor Complement C4 Miscellaneous Test Crossmatch 12/03/16 12/03/16 12/03/16 05:02 12:11 18:16 WBC RBC Hgb Hct MCV MCH MCHC RDW Plt Count Lymph % (Auto) [place] % (Auto) Lymph # [place] # Baso # Seg Neutrophils % Seg Neuts % (Manual) Lymphocytes % (Manual) Monocytes % (Manual) Eosinophils % (Manual) Basophils % (Manual) Nucleated RBC % Seg Neutrophils # Seg Neutrophils # Man Lymphocytes # (Manual) Monocytes # (Manual) Eosinophils # (Manual) Basophils # (Manual) PT INR Fibrinogen dRVVT Confirm Interp Factor V Activity POC ABG pH POC ABG pCO2 POC ABG pO2 ABG pO2 ABG HCO3 ABG Base Excess ABG Hemoglobin Oxyhemoglobin Sodium Potassium Chloride Carbon Dioxide BUN Creatinine Glucose POC Glucose 146 H 157 H 124 H Lactic Acid Calcium Phosphorus Magnesium Direct Bilirubin AST ALT Alkaline Phosphatase Lactate Dehydrogenase Troponin T C-Reactive Protein Total Protein Albumin Prealbumin Triglycerides Cholesterol LDL Cholesterol Direct HDL Cholesterol Urine pH Urine WBC (Auto) Urine Creatinine Urine Total Protein Fluid Total Protein Vancomycin Trough Rheumatoid Factor Complement C4 Miscellaneous Test Crossmatch 12/03/16 12/04/16 12/04/16 23:41 04:00 04:45 WBC RBC Hgb Hct MCV MCH MCHC RDW Plt Count Lymph % (Auto) [place] % (Auto) Lymph # [place] # Baso # Seg Neutrophils % Seg Neuts % (Manual) Lymphocytes % (Manual) Monocytes % (Manual) Eosinophils % (Manual) Basophils % (Manual) Nucleated RBC % Seg Neutrophils # Seg Neutrophils # Man Lymphocytes # (Manual) Monocytes # (Manual) Eosinophils # (Manual) Basophils # (Manual) PT INR Fibrinogen dRVVT Confirm Interp Factor V Activity POC ABG pH POC ABG pCO2 POC ABG pO2 ABG pO2 ABG HCO3 ABG Base Excess ABG Hemoglobin Oxyhemoglobin Sodium Potassium Chloride Carbon Dioxide BUN 76 H Creatinine 1.6 H Glucose POC Glucose 130 H 136 H Lactic Acid Calcium Phosphorus Magnesium Direct Bilirubin AST ALT Alkaline Phosphatase 155 H Lactate Dehydrogenase Troponin T C-Reactive Protein Total Protein 5.5 L Albumin 1.5 L Prealbumin Triglycerides Cholesterol LDL Cholesterol Direct HDL Cholesterol Urine pH Urine WBC (Auto) Urine Creatinine Urine Total Protein Fluid Total Protein Vancomycin Trough Rheumatoid Factor Complement C4 Miscellaneous Test Crossmatch 12/04/16 12/04/16 12/05/16 12:08 17:23 00:10 WBC RBC Hgb Hct MCV MCH MCHC RDW Plt Count Lymph % (Auto) [place] % (Auto) Lymph # [place] # Baso # Seg Neutrophils % Seg Neuts % (Manual) Lymphocytes % (Manual) Monocytes % (Manual) Eosinophils % (Manual) Basophils % (Manual) Nucleated RBC % Seg Neutrophils # Seg Neutrophils # Man Lymphocytes # (Manual) Monocytes # (Manual) Eosinophils # (Manual) Basophils # (Manual) PT INR Fibrinogen dRVVT Confirm Interp Factor V Activity POC ABG pH POC ABG pCO2 POC ABG pO2 ABG pO2 ABG HCO3 ABG Base Excess ABG Hemoglobin Oxyhemoglobin Sodium Potassium Chloride Carbon Dioxide BUN Creatinine Glucose POC Glucose 114 H 129 H 124 H Lactic Acid Calcium Phosphorus Magnesium Direct Bilirubin AST ALT Alkaline Phosphatase Lactate Dehydrogenase Troponin T C-Reactive Protein Total Protein Albumin Prealbumin Triglycerides Cholesterol LDL Cholesterol Direct HDL Cholesterol Urine pH Urine WBC (Auto) Urine Creatinine Urine Total Protein Fluid Total Protein Vancomycin Trough Rheumatoid Factor Complement C4 Miscellaneous Test Crossmatch 12/05/16 12/05/16 12/05/16 05:00 05:00 05:18 WBC RBC Hgb Hct MCV MCH MCHC RDW Plt Count Lymph % (Auto) [place] % (Auto) Lymph # [place] # Baso # Seg Neutrophils % Seg Neuts % (Manual) Lymphocytes % (Manual) Monocytes % (Manual) Eosinophils % (Manual) Basophils % (Manual) Nucleated RBC % Seg Neutrophils # Seg Neutrophils # Man Lymphocytes # (Manual) Monocytes # (Manual) Eosinophils # (Manual) Basophils # (Manual) PT INR Fibrinogen dRVVT Confirm Interp Factor V Activity POC ABG pH POC ABG pCO2 POC ABG pO2 ABG pO2 ABG HCO3 ABG Base Excess ABG Hemoglobin Oxyhemoglobin Sodium Potassium Chloride Carbon Dioxide 21 L BUN 85 H Creatinine 1.9 H Glucose 131 H POC Glucose 154 H Lactic Acid Calcium Phosphorus Magnesium Direct Bilirubin AST ALT Alkaline Phosphatase Lactate Dehydrogenase Troponin T C-Reactive Protein 19.30 H Total Protein Albumin Prealbumin Triglycerides Cholesterol LDL Cholesterol Direct HDL Cholesterol Urine pH Urine WBC (Auto) Urine Creatinine Urine Total Protein Fluid Total Protein Vancomycin Trough Rheumatoid Factor Complement C4 Miscellaneous Test Crossmatch 12/05/16 12/05/16 12/05/16 11:43 17:46 23:25 WBC RBC Hgb Hct MCV MCH MCHC RDW Plt Count Lymph % (Auto) [place] % (Auto) Lymph # [place] # Baso # Seg Neutrophils % Seg Neuts % (Manual) Lymphocytes % (Manual) Monocytes % (Manual) Eosinophils % (Manual) Basophils % (Manual) Nucleated RBC % Seg Neutrophils # Seg Neutrophils # Man Lymphocytes # (Manual) Monocytes # (Manual) Eosinophils # (Manual) Basophils # (Manual) PT INR Fibrinogen dRVVT Confirm Interp Factor V Activity POC ABG pH POC ABG pCO2 POC ABG pO2 ABG pO2 ABG HCO3 ABG Base Excess ABG Hemoglobin Oxyhemoglobin Sodium Potassium Chloride Carbon Dioxide BUN Creatinine Glucose POC Glucose 117 H 113 H 111 H Lactic Acid Calcium Phosphorus Magnesium Direct Bilirubin AST ALT Alkaline Phosphatase Lactate Dehydrogenase Troponin T C-Reactive Protein Total Protein Albumin Prealbumin Triglycerides Cholesterol LDL Cholesterol Direct HDL Cholesterol Urine pH Urine WBC (Auto) Urine Creatinine Urine Total Protein Fluid Total Protein Vancomycin Trough Rheumatoid Factor Complement C4 Miscellaneous Test Crossmatch 12/05/16 12/06/16 12/06/16 Unknown 04:58 06:00 WBC RBC Hgb Hct MCV MCH MCHC RDW Plt Count Lymph % (Auto) [place] % (Auto) Lymph # [place] # Baso # Seg Neutrophils % Seg Neuts % (Manual) Lymphocytes % (Manual) Monocytes % (Manual) Eosinophils % (Manual) Basophils % (Manual) Nucleated RBC % Seg Neutrophils # Seg Neutrophils # Man Lymphocytes # (Manual) Monocytes # (Manual) Eosinophils # (Manual) Basophils # (Manual) PT INR Fibrinogen dRVVT Confirm Interp Factor V Activity POC ABG pH POC ABG pCO2 POC ABG pO2 ABG pO2 75.2 L ABG HCO3 ABG Base Excess -3.4 L ABG Hemoglobin 7.4 L Oxyhemoglobin 94.5 L Sodium Potassium Chloride Carbon Dioxide 20 L BUN 99 H Creatinine 2.1 H Glucose 126 H POC Glucose 145 H Lactic Acid Calcium Phosphorus 4.80 H Magnesium Direct Bilirubin AST ALT Alkaline Phosphatase Lactate Dehydrogenase Troponin T C-Reactive Protein Total Protein Albumin Prealbumin Triglycerides Cholesterol LDL Cholesterol Direct HDL Cholesterol Urine pH Urine WBC (Auto) Urine Creatinine Urine Total Protein Fluid Total Protein Vancomycin Trough Rheumatoid Factor Complement C4 Miscellaneous Test Crossmatch 12/06/16 12/06/16 12/06/16 06:46 11:54 17:55 WBC RBC Hgb 8.3 L Hct 26.4 L MCV MCH MCHC RDW Plt Count Lymph % (Auto) [place] % (Auto) Lymph # [place] # Baso # Seg Neutrophils % Seg Neuts % (Manual) Lymphocytes % (Manual) Monocytes % (Manual) Eosinophils % (Manual) Basophils % (Manual) Nucleated RBC % Seg Neutrophils # Seg Neutrophils # Man Lymphocytes # (Manual) Monocytes # (Manual) Eosinophils # (Manual) Basophils # (Manual) PT INR Fibrinogen dRVVT Confirm Interp Factor V Activity POC ABG pH POC ABG pCO2 POC ABG pO2 ABG pO2 ABG HCO3 ABG Base Excess ABG Hemoglobin Oxyhemoglobin Sodium Potassium Chloride Carbon Dioxide BUN Creatinine Glucose POC Glucose 126 H 157 H Lactic Acid Calcium Phosphorus Magnesium Direct Bilirubin AST ALT Alkaline Phosphatase Lactate Dehydrogenase Troponin T C-Reactive Protein Total Protein Albumin Prealbumin Triglycerides Cholesterol LDL Cholesterol Direct HDL Cholesterol Urine pH Urine WBC (Auto) Urine Creatinine Urine Total Protein Fluid Total Protein Vancomycin Trough Rheumatoid Factor Complement C4 Miscellaneous Test Crossmatch 12/06/16 12/07/16 12/07/16 23:59 05:34 06:30 WBC RBC Hgb Hct MCV MCH MCHC RDW Plt Count Lymph % (Auto) [place] % (Auto) Lymph # [place] # Baso # Seg Neutrophils % Seg Neuts % (Manual) Lymphocytes % (Manual) Monocytes % (Manual) Eosinophils % (Manual) Basophils % (Manual) Nucleated RBC % Seg Neutrophils # Seg Neutrophils # Man Lymphocytes # (Manual) Monocytes # (Manual) Eosinophils # (Manual) Basophils # (Manual) PT INR Fibrinogen dRVVT Confirm Interp Factor V Activity POC ABG pH POC ABG pCO2 POC ABG pO2 ABG pO2 ABG HCO3 ABG Base Excess ABG Hemoglobin Oxyhemoglobin Sodium Potassium Chloride Carbon Dioxide BUN 67 H Creatinine 1.4 H Glucose 126 H POC Glucose 129 H 129 H Lactic Acid Calcium Phosphorus Magnesium Direct Bilirubin AST ALT Alkaline Phosphatase Lactate Dehydrogenase Troponin T C-Reactive Protein Total Protein Albumin Prealbumin Triglycerides Cholesterol LDL Cholesterol Direct HDL Cholesterol Urine pH Urine WBC (Auto) Urine Creatinine Urine Total Protein Fluid Total Protein Vancomycin Trough Rheumatoid Factor Complement C4 Miscellaneous Test Crossmatch 12/07/16 12/07/16 12/07/16 06:30 08:00 09:45 WBC 18.8 H RBC 2.52 L Hgb 6.9 L 6.8 L Hct 21.2 L 21.1 L MCV MCH 27 L MCHC RDW 18.0 H Plt Count Lymph % (Auto) [place] % (Auto) 9.9 H Lymph # [place] # 1.9 H Baso # Seg Neutrophils % 71.8 H Seg Neuts % (Manual) Lymphocytes % (Manual) Monocytes % (Manual) Eosinophils % (Manual) Basophils % (Manual) Nucleated RBC % Seg Neutrophils # 13.5 H Seg Neutrophils # Man Lymphocytes # (Manual) Monocytes # (Manual) Eosinophils # (Manual) Basophils # (Manual) PT INR Fibrinogen dRVVT Confirm Interp Factor V Activity POC ABG pH POC ABG pCO2 POC ABG pO2 ABG pO2 ABG HCO3 ABG Base Excess ABG Hemoglobin Oxyhemoglobin Sodium Potassium Chloride Carbon Dioxide BUN Creatinine Glucose POC Glucose Lactic Acid Calcium Phosphorus Magnesium Direct Bilirubin AST ALT Alkaline Phosphatase Lactate Dehydrogenase Troponin T C-Reactive Protein Total Protein Albumin Prealbumin Triglycerides Cholesterol LDL Cholesterol Direct HDL Cholesterol Urine pH Urine WBC (Auto) Urine Creatinine Urine Total Protein Fluid Total Protein Vancomycin Trough Rheumatoid Factor Complement C4 Miscellaneous Test Crossmatch See Detail 12/07/16 12/07/16 12/07/16 11:44 18:19 23:59 WBC RBC Hgb Hct MCV MCH MCHC RDW Plt Count Lymph % (Auto) [place] % (Auto) Lymph # [place] # Baso # Seg Neutrophils % Seg Neuts % (Manual) Lymphocytes % (Manual) Monocytes % (Manual) Eosinophils % (Manual) Basophils % (Manual) Nucleated RBC % Seg Neutrophils # Seg Neutrophils # Man Lymphocytes # (Manual) Monocytes # (Manual) Eosinophils # (Manual) Basophils # (Manual) PT INR Fibrinogen dRVVT Confirm Interp Factor V Activity POC ABG pH POC ABG pCO2 POC ABG pO2 ABG pO2 ABG HCO3 ABG Base Excess ABG Hemoglobin Oxyhemoglobin Sodium Potassium Chloride Carbon Dioxide BUN Creatinine Glucose POC Glucose 137 H 138 H 133 H Lactic Acid Calcium Phosphorus Magnesium Direct Bilirubin AST ALT Alkaline Phosphatase Lactate Dehydrogenase Troponin T C-Reactive Protein Total Protein Albumin Prealbumin Triglycerides Cholesterol LDL Cholesterol Direct HDL Cholesterol Urine pH Urine WBC (Auto) Urine Creatinine Urine Total Protein Fluid Total Protein Vancomycin Trough Rheumatoid Factor Complement C4 Miscellaneous Test Crossmatch 12/08/16 12/08/16 12/08/16 05:25 05:30 05:30 WBC 23.8 H RBC 2.88 L Hgb 8.1 L Hct 24.3 L MCV MCH MCHC RDW 16.7 H Plt Count Lymph % (Auto) [place] % (Auto) Lymph # [place] # Baso # Seg Neutrophils % Seg Neuts % (Manual) 76.0 H Lymphocytes % (Manual) 9.0 L Monocytes % (Manual) 9.0 H Eosinophils % (Manual) Basophils % (Manual) Nucleated RBC % Seg Neutrophils # Seg Neutrophils # Man 18.1 H Lymphocytes # (Manual) Monocytes # (Manual) 2.1 H Eosinophils # (Manual) Basophils # (Manual) PT INR Fibrinogen dRVVT Confirm Interp Factor V Activity POC ABG pH POC ABG pCO2 POC ABG pO2 ABG pO2 ABG HCO3 ABG Base Excess ABG Hemoglobin Oxyhemoglobin Sodium Potassium Chloride Carbon Dioxide 21 L BUN 76 H Creatinine 1.6 H Glucose 133 H POC Glucose 177 H Lactic Acid Calcium Phosphorus Magnesium Direct Bilirubin AST ALT Alkaline Phosphatase Lactate Dehydrogenase Troponin T C-Reactive Protein Total Protein Albumin Prealbumin Triglycerides Cholesterol LDL Cholesterol Direct HDL Cholesterol Urine pH Urine WBC (Auto) Urine Creatinine Urine Total Protein Fluid Total Protein Vancomycin Trough Rheumatoid Factor Complement C4 Miscellaneous Test Crossmatch 12/08/16 12/08/16 12/09/16 11:45 18:00 00:00 WBC RBC Hgb Hct MCV MCH MCHC RDW Plt Count Lymph % (Auto) [place] % (Auto) Lymph # [place] # Baso # Seg Neutrophils % Seg Neuts % (Manual) Lymphocytes % (Manual) Monocytes % (Manual) Eosinophils % (Manual) Basophils % (Manual) Nucleated RBC % Seg Neutrophils # Seg Neutrophils # Man Lymphocytes # (Manual) Monocytes # (Manual) Eosinophils # (Manual) Basophils # (Manual) PT INR Fibrinogen dRVVT Confirm Interp Factor V Activity POC ABG pH POC ABG pCO2 POC ABG pO2 ABG pO2 ABG HCO3 ABG Base Excess ABG Hemoglobin Oxyhemoglobin Sodium Potassium Chloride Carbon Dioxide BUN Creatinine Glucose POC Glucose 163 H 123 H 137 H Lactic Acid Calcium Phosphorus Magnesium Direct Bilirubin AST ALT Alkaline Phosphatase Lactate Dehydrogenase Troponin T C-Reactive Protein Total Protein Albumin Prealbumin Triglycerides Cholesterol LDL Cholesterol Direct HDL Cholesterol Urine pH Urine WBC (Auto) Urine Creatinine Urine Total Protein Fluid Total Protein Vancomycin Trough Rheumatoid Factor Complement C4 Miscellaneous Test Crossmatch 12/09/16 12/09/16 12/09/16 05:34 06:00 06:00 WBC 15.5 H RBC 2.87 L Hgb 8.0 L Hct 24.2 L MCV MCH MCHC RDW 17.2 H Plt Count Lymph % (Auto) [place] % (Auto) 11.6 H Lymph # [place] # 1.8 H Baso # Seg Neutrophils % 70.8 H Seg Neuts % (Manual) Lymphocytes % (Manual) Monocytes % (Manual) Eosinophils % (Manual) Basophils % (Manual) Nucleated RBC % Seg Neutrophils # 11.0 H Seg Neutrophils # Man Lymphocytes # (Manual) Monocytes # (Manual) Eosinophils # (Manual) Basophils # (Manual) PT INR Fibrinogen dRVVT Confirm Interp Factor V Activity POC ABG pH POC ABG pCO2 POC ABG pO2 ABG pO2 ABG HCO3 ABG Base Excess ABG Hemoglobin Oxyhemoglobin Sodium Potassium Chloride Carbon Dioxide BUN 51 H Creatinine Glucose 117 H POC Glucose 136 H Lactic Acid Calcium Phosphorus Magnesium Direct Bilirubin AST ALT Alkaline Phosphatase Lactate Dehydrogenase Troponin T C-Reactive Protein Total Protein Albumin Prealbumin Triglycerides Cholesterol LDL Cholesterol Direct HDL Cholesterol Urine pH Urine WBC (Auto) Urine Creatinine Urine Total Protein Fluid Total Protein Vancomycin Trough Rheumatoid Factor Complement C4 Miscellaneous Test Crossmatch 12/09/16 12/09/16 12/09/16 12:29 17:52 23:10 WBC RBC Hgb Hct MCV MCH MCHC RDW Plt Count Lymph % (Auto) [place] % (Auto) Lymph # [place] # Baso # Seg Neutrophils % Seg Neuts % (Manual) Lymphocytes % (Manual) Monocytes % (Manual) Eosinophils % (Manual) Basophils % (Manual) Nucleated RBC % Seg Neutrophils # Seg Neutrophils # Man Lymphocytes # (Manual) Monocytes # (Manual) Eosinophils # (Manual) Basophils # (Manual) PT INR Fibrinogen dRVVT Confirm Interp Factor V Activity POC ABG pH POC ABG pCO2 POC ABG pO2 ABG pO2 ABG HCO3 ABG Base Excess ABG Hemoglobin Oxyhemoglobin Sodium Potassium Chloride Carbon Dioxide BUN Creatinine Glucose POC Glucose 139 H 140 H 129 H Lactic Acid Calcium Phosphorus Magnesium Direct Bilirubin AST ALT Alkaline Phosphatase Lactate Dehydrogenase Troponin T C-Reactive Protein Total Protein Albumin Prealbumin Triglycerides Cholesterol LDL Cholesterol Direct HDL Cholesterol Urine pH Urine WBC (Auto) Urine Creatinine Urine Total Protein Fluid Total Protein Vancomycin Trough Rheumatoid Factor Complement C4 Miscellaneous Test Crossmatch 12/10/16 12/10/16 12/10/16 05:00 05:00 06:54 WBC 15.7 H RBC 2.87 L Hgb 8.2 L Hct 24.4 L MCV MCH MCHC RDW 17.2 H Plt Count Lymph % (Auto) [place] % (Auto) 8.3 H Lymph # [place] # 1.3 H Baso # Seg Neutrophils % 72.8 H Seg Neuts % (Manual) Lymphocytes % (Manual) Monocytes % (Manual) Eosinophils % (Manual) Basophils % (Manual) Nucleated RBC % Seg Neutrophils # 11.4 H Seg Neutrophils # Man Lymphocytes # (Manual) Monocytes # (Manual) Eosinophils # (Manual) Basophils # (Manual) PT INR Fibrinogen dRVVT Confirm Interp Factor V Activity POC ABG pH POC ABG pCO2 POC ABG pO2 ABG pO2 ABG HCO3 ABG Base Excess ABG Hemoglobin Oxyhemoglobin Sodium Potassium Chloride Carbon Dioxide BUN 64 H Creatinine 1.4 H Glucose 134 H POC Glucose 154 H Lactic Acid Calcium Phosphorus Magnesium Direct Bilirubin AST ALT Alkaline Phosphatase Lactate Dehydrogenase Troponin T C-Reactive Protein Total Protein Albumin Prealbumin Triglycerides Cholesterol LDL Cholesterol Direct HDL Cholesterol Urine pH Urine WBC (Auto) Urine Creatinine Urine Total Protein Fluid Total Protein Vancomycin Trough Rheumatoid Factor Complement C4 Miscellaneous Test Crossmatch 12/10/16 12/10/16 12/10/16 11:58 17:29 23:52 WBC RBC Hgb Hct MCV MCH MCHC RDW Plt Count Lymph % (Auto) [place] % (Auto) Lymph # [place] # Baso # Seg Neutrophils % Seg Neuts % (Manual) Lymphocytes % (Manual) Monocytes % (Manual) Eosinophils % (Manual) Basophils % (Manual) Nucleated RBC % Seg Neutrophils # Seg Neutrophils # Man Lymphocytes # (Manual) Monocytes # (Manual) Eosinophils # (Manual) Basophils # (Manual) PT INR Fibrinogen dRVVT Confirm Interp Factor V Activity POC ABG pH POC ABG pCO2 POC ABG pO2 ABG pO2 ABG HCO3 ABG Base Excess ABG Hemoglobin Oxyhemoglobin Sodium Potassium Chloride Carbon Dioxide BUN Creatinine Glucose POC Glucose 144 H 163 H 125 H Lactic Acid Calcium Phosphorus Magnesium Direct Bilirubin AST ALT Alkaline Phosphatase Lactate Dehydrogenase Troponin T C-Reactive Protein Total Protein Albumin Prealbumin Triglycerides Cholesterol LDL Cholesterol Direct HDL Cholesterol Urine pH Urine WBC (Auto) Urine Creatinine Urine Total Protein Fluid Total Protein Vancomycin Trough Rheumatoid Factor Complement C4 Miscellaneous Test Crossmatch 12/11/16 12/11/16 12/11/16 05:38 06:30 06:30 WBC 14.4 H RBC 2.76 L Hgb 7.7 L Hct 23.4 L MCV MCH MCHC RDW 17.2 H Plt Count Lymph % (Auto) [place] % (Auto) 8.8 H Lymph # [place] # 1.3 H Baso # Seg Neutrophils % 72.5 H Seg Neuts % (Manual) Lymphocytes % (Manual) Monocytes % (Manual) Eosinophils % (Manual) Basophils % (Manual) Nucleated RBC % Seg Neutrophils # 10.5 H Seg Neutrophils # Man Lymphocytes # (Manual) Monocytes # (Manual) Eosinophils # (Manual) Basophils # (Manual) PT INR Fibrinogen dRVVT Confirm Interp Factor V Activity POC ABG pH POC ABG pCO2 POC ABG pO2 ABG pO2 ABG HCO3 ABG Base Excess ABG Hemoglobin Oxyhemoglobin Sodium Potassium Chloride Carbon Dioxide BUN 43 H Creatinine Glucose 124 H POC Glucose 141 H Lactic Acid Calcium 8.3 L Phosphorus Magnesium 1.60 L Direct Bilirubin AST ALT Alkaline Phosphatase Lactate Dehydrogenase Troponin T C-Reactive Protein Total Protein Albumin Prealbumin Triglycerides Cholesterol LDL Cholesterol Direct HDL Cholesterol Urine pH Urine WBC (Auto) Urine Creatinine Urine Total Protein Fluid Total Protein Vancomycin Trough Rheumatoid Factor Complement C4 Miscellaneous Test Crossmatch 12/11/16 12/11/16 12/11/16 11:15 17:59 23:48 WBC RBC Hgb Hct MCV MCH MCHC RDW Plt Count Lymph % (Auto) [place] % (Auto) Lymph # [place] # Baso # Seg Neutrophils % Seg Neuts % (Manual) Lymphocytes % (Manual) Monocytes % (Manual) Eosinophils % (Manual) Basophils % (Manual) Nucleated RBC % Seg Neutrophils # Seg Neutrophils # Man Lymphocytes # (Manual) Monocytes # (Manual) Eosinophils # (Manual) Basophils # (Manual) PT INR Fibrinogen dRVVT Confirm Interp Factor V Activity POC ABG pH POC ABG pCO2 POC ABG pO2 ABG pO2 ABG HCO3 ABG Base Excess ABG Hemoglobin Oxyhemoglobin Sodium Potassium Chloride Carbon Dioxide BUN Creatinine Glucose POC Glucose 188 H 106 H 119 H Lactic Acid Calcium Phosphorus Magnesium Direct Bilirubin AST ALT Alkaline Phosphatase Lactate Dehydrogenase Troponin T C-Reactive Protein Total Protein Albumin Prealbumin Triglycerides Cholesterol LDL Cholesterol Direct HDL Cholesterol Urine pH Urine WBC (Auto) Urine Creatinine Urine Total Protein Fluid Total Protein Vancomycin Trough Rheumatoid Factor Complement C4 Miscellaneous Test Crossmatch 12/12/16 12/12/16 12/12/16 05:00 06:01 12:20 WBC 16.7 H RBC 2.87 L Hgb 8.0 L Hct 24.2 L MCV MCH MCHC RDW 17.6 H Plt Count Lymph % (Auto) [place] % (Auto) Lymph # [place] # 1.2 H Baso # Seg Neutrophils % 75.3 H Seg Neuts % (Manual) Lymphocytes % (Manual) Monocytes % (Manual) Eosinophils % (Manual) Basophils % (Manual) Nucleated RBC % Seg Neutrophils # 12.6 H Seg Neutrophils # Man Lymphocytes # (Manual) Monocytes # (Manual) Eosinophils # (Manual) Basophils # (Manual) PT INR Fibrinogen dRVVT Confirm Interp Factor V Activity POC ABG pH POC ABG pCO2 POC ABG pO2 ABG pO2 ABG HCO3 ABG Base Excess ABG Hemoglobin Oxyhemoglobin Sodium Potassium Chloride Carbon Dioxide BUN Creatinine Glucose POC Glucose 134 H 149 H Lactic Acid Calcium Phosphorus Magnesium Direct Bilirubin AST ALT Alkaline Phosphatase Lactate Dehydrogenase Troponin T C-Reactive Protein Total Protein Albumin Prealbumin Triglycerides Cholesterol LDL Cholesterol Direct HDL Cholesterol Urine pH Urine WBC (Auto) Urine Creatinine Urine Total Protein Fluid Total Protein Vancomycin Trough Rheumatoid Factor Complement C4 Miscellaneous Test Crossmatch 12/12/16 12/12/16 12/12/16 17:38 23:01 Unknown WBC RBC Hgb Hct MCV MCH MCHC RDW Plt Count Lymph % (Auto) [place] % (Auto) Lymph # [place] # Baso # Seg Neutrophils % Seg Neuts % (Manual) Lymphocytes % (Manual) Monocytes % (Manual) Eosinophils % (Manual) Basophils % (Manual) Nucleated RBC % Seg Neutrophils # Seg Neutrophils # Man Lymphocytes # (Manual) Monocytes # (Manual) Eosinophils # (Manual) Basophils # (Manual) PT INR Fibrinogen dRVVT Confirm Interp Factor V Activity POC ABG pH POC ABG pCO2 POC ABG pO2 ABG pO2 ABG HCO3 ABG Base Excess ABG Hemoglobin Oxyhemoglobin Sodium Potassium Chloride Carbon Dioxide BUN 60 H Creatinine 1.3 H Glucose 126 H POC Glucose 127 H 144 H Lactic Acid Calcium Phosphorus Magnesium Direct Bilirubin AST ALT Alkaline Phosphatase Lactate Dehydrogenase Troponin T C-Reactive Protein Total Protein Albumin Prealbumin Triglycerides Cholesterol LDL Cholesterol Direct HDL Cholesterol Urine pH Urine WBC (Auto) Urine Creatinine Urine Total Protein Fluid Total Protein Vancomycin Trough Rheumatoid Factor Complement C4 Miscellaneous Test Crossmatch 12/13/16 12/13/16 12/13/16 04:00 04:00 05:19 WBC 18.7 H RBC 2.89 L Hgb 8.3 L Hct 24.6 L MCV MCH MCHC RDW 17.5 H Plt Count Lymph % (Auto) [place] % (Auto) Lymph # [place] # 1.3 H Baso # Seg Neutrophils % 71.5 H Seg Neuts % (Manual) Lymphocytes % (Manual) Monocytes % (Manual) Eosinophils % (Manual) Basophils % (Manual) Nucleated RBC % Seg Neutrophils # 13.4 H Seg Neutrophils # Man Lymphocytes # (Manual) Monocytes # (Manual) Eosinophils # (Manual) Basophils # (Manual) PT INR Fibrinogen dRVVT Confirm Interp Factor V Activity POC ABG pH POC ABG pCO2 POC ABG pO2 ABG pO2 ABG HCO3 ABG Base Excess ABG Hemoglobin Oxyhemoglobin Sodium Potassium Chloride Carbon Dioxide BUN 73 H Creatinine 1.5 H Glucose 141 H POC Glucose 171 H Lactic Acid Calcium Phosphorus Magnesium Direct Bilirubin AST ALT Alkaline Phosphatase Lactate Dehydrogenase Troponin T C-Reactive Protein Total Protein Albumin Prealbumin Triglycerides Cholesterol LDL Cholesterol Direct HDL Cholesterol Urine pH Urine WBC (Auto) Urine Creatinine Urine Total Protein Fluid Total Protein Vancomycin Trough Rheumatoid Factor Complement C4 Miscellaneous Test Crossmatch 12/13/16 12/13/16 12/14/16 12:28 16:48 00:01 WBC RBC Hgb Hct MCV MCH MCHC RDW Plt Count Lymph % (Auto) [place] % (Auto) Lymph # [place] # Baso # Seg Neutrophils % Seg Neuts % (Manual) Lymphocytes % (Manual) Monocytes % (Manual) Eosinophils % (Manual) Basophils % (Manual) Nucleated RBC % Seg Neutrophils # Seg Neutrophils # Man Lymphocytes # (Manual) Monocytes # (Manual) Eosinophils # (Manual) Basophils # (Manual) PT INR Fibrinogen dRVVT Confirm Interp Factor V Activity POC ABG pH POC ABG pCO2 POC ABG pO2 ABG pO2 ABG HCO3 ABG Base Excess ABG Hemoglobin Oxyhemoglobin Sodium Potassium Chloride Carbon Dioxide BUN Creatinine Glucose POC Glucose 206 H 173 H 139 H Lactic Acid Calcium Phosphorus Magnesium Direct Bilirubin AST ALT Alkaline Phosphatase Lactate Dehydrogenase Troponin T C-Reactive Protein Total Protein Albumin Prealbumin Triglycerides Cholesterol LDL Cholesterol Direct HDL Cholesterol Urine pH Urine WBC (Auto) Urine Creatinine Urine Total Protein Fluid Total Protein Vancomycin Trough Rheumatoid Factor Complement C4 Miscellaneous Test Crossmatch 12/14/16 12/14/16 12/14/16 05:16 06:10 11:17 WBC RBC Hgb Hct MCV MCH MCHC RDW Plt Count Lymph % (Auto) [place] % (Auto) Lymph # [place] # Baso # Seg Neutrophils % Seg Neuts % (Manual) Lymphocytes % (Manual) Monocytes % (Manual) Eosinophils % (Manual) Basophils % (Manual) Nucleated RBC % Seg Neutrophils # Seg Neutrophils # Man Lymphocytes # (Manual) Monocytes # (Manual) Eosinophils # (Manual) Basophils # (Manual) PT INR Fibrinogen dRVVT Confirm Interp Factor V Activity POC ABG pH POC ABG pCO2 POC ABG pO2 ABG pO2 ABG HCO3 ABG Base Excess ABG Hemoglobin Oxyhemoglobin Sodium Potassium Chloride Carbon Dioxide BUN 57 H Creatinine 1.4 H Glucose 135 H POC Glucose 158 H 137 H Lactic Acid Calcium Phosphorus Magnesium Direct Bilirubin AST ALT Alkaline Phosphatase Lactate Dehydrogenase Troponin T C-Reactive Protein Total Protein Albumin Prealbumin Triglycerides Cholesterol LDL Cholesterol Direct HDL Cholesterol Urine pH Urine WBC (Auto) Urine Creatinine Urine Total Protein Fluid Total Protein Vancomycin Trough Rheumatoid Factor Complement C4 Miscellaneous Test Crossmatch 12/14/16 12/14/16 12/15/16 17:52 23:27 04:00 WBC RBC Hgb Hct MCV MCH MCHC RDW Plt Count Lymph % (Auto) [place] % (Auto) Lymph # [place] # Baso # Seg Neutrophils % Seg Neuts % (Manual) Lymphocytes % (Manual) Monocytes % (Manual) Eosinophils % (Manual) Basophils % (Manual) Nucleated RBC % Seg Neutrophils # Seg Neutrophils # Man Lymphocytes # (Manual) Monocytes # (Manual) Eosinophils # (Manual) Basophils # (Manual) PT INR Fibrinogen dRVVT Confirm Interp Factor V Activity POC ABG pH POC ABG pCO2 POC ABG pO2 ABG pO2 ABG HCO3 ABG Base Excess ABG Hemoglobin Oxyhemoglobin Sodium Potassium Chloride 97.9 L Carbon Dioxide BUN 75 H Creatinine 1.6 H Glucose 122 H POC Glucose 149 H 163 H Lactic Acid Calcium Phosphorus 5.20 H Magnesium Direct Bilirubin AST ALT Alkaline Phosphatase Lactate Dehydrogenase Troponin T C-Reactive Protein Total Protein Albumin Prealbumin Triglycerides Cholesterol LDL Cholesterol Direct HDL Cholesterol Urine pH Urine WBC (Auto) Urine Creatinine Urine Total Protein Fluid Total Protein Vancomycin Trough Rheumatoid Factor Complement C4 Miscellaneous Test Crossmatch 12/15/16 12/15/16 12/15/16 05:50 11:24 17:01 WBC RBC Hgb Hct MCV MCH MCHC RDW Plt Count Lymph % (Auto) [place] % (Auto) Lymph # [place] # Baso # Seg Neutrophils % Seg Neuts % (Manual) Lymphocytes % (Manual) Monocytes % (Manual) Eosinophils % (Manual) Basophils % (Manual) Nucleated RBC % Seg Neutrophils # Seg Neutrophils # Man Lymphocytes # (Manual) Monocytes # (Manual) Eosinophils # (Manual) Basophils # (Manual) PT INR Fibrinogen dRVVT Confirm Interp Factor V Activity POC ABG pH POC ABG pCO2 POC ABG pO2 ABG pO2 ABG HCO3 ABG Base Excess ABG Hemoglobin Oxyhemoglobin Sodium Potassium Chloride Carbon Dioxide BUN Creatinine Glucose POC Glucose 150 H 146 H 167 H Lactic Acid Calcium Phosphorus Magnesium Direct Bilirubin AST ALT Alkaline Phosphatase Lactate Dehydrogenase Troponin T C-Reactive Protein Total Protein Albumin Prealbumin Triglycerides Cholesterol LDL Cholesterol Direct HDL Cholesterol Urine pH Urine WBC (Auto) Urine Creatinine Urine Total Protein Fluid Total Protein Vancomycin Trough Rheumatoid Factor Complement C4 Miscellaneous Test Crossmatch 12/15/16 12/16/16 12/16/16 23:34 05:25 11:24 WBC RBC Hgb Hct MCV MCH MCHC RDW Plt Count Lymph % (Auto) [place] % (Auto) Lymph # [place] # Baso # Seg Neutrophils % Seg Neuts % (Manual) Lymphocytes % (Manual) Monocytes % (Manual) Eosinophils % (Manual) Basophils % (Manual) Nucleated RBC % Seg Neutrophils # Seg Neutrophils # Man Lymphocytes # (Manual) Monocytes # (Manual) Eosinophils # (Manual) Basophils # (Manual) PT INR Fibrinogen dRVVT Confirm Interp Factor V Activity POC ABG pH POC ABG pCO2 POC ABG pO2 ABG pO2 ABG HCO3 ABG Base Excess ABG Hemoglobin Oxyhemoglobin Sodium Potassium Chloride Carbon Dioxide BUN Creatinine Glucose POC Glucose 127 H 139 H 165 H Lactic Acid Calcium Phosphorus Magnesium Direct Bilirubin AST ALT Alkaline Phosphatase Lactate Dehydrogenase Troponin T C-Reactive Protein Total Protein Albumin Prealbumin Triglycerides Cholesterol LDL Cholesterol Direct HDL Cholesterol Urine pH Urine WBC (Auto) Urine Creatinine Urine Total Protein Fluid Total Protein Vancomycin Trough Rheumatoid Factor Complement C4 Miscellaneous Test Crossmatch 12/16/16 12/16/16 12/16/16 15:30 16:25 17:31 WBC 17.8 H RBC 2.38 L Hgb 6.4 L Hct 20.3 L MCV MCH 27 L MCHC RDW 17.4 H Plt Count Lymph % (Auto) [place] % (Auto) Lymph # [place] # Baso # Seg Neutrophils % Seg Neuts % (Manual) Lymphocytes % (Manual) Monocytes % (Manual) 10.0 H Eosinophils % (Manual) Basophils % (Manual) Nucleated RBC % Seg Neutrophils # Seg Neutrophils # Man 8.5 H Lymphocytes # (Manual) Monocytes # (Manual) 1.8 H Eosinophils # (Manual) Basophils # (Manual) PT INR Fibrinogen dRVVT Confirm Interp Factor V Activity POC ABG pH POC ABG pCO2 POC ABG pO2 ABG pO2 ABG HCO3 ABG Base Excess ABG Hemoglobin Oxyhemoglobin Sodium Potassium Chloride Carbon Dioxide BUN Creatinine Glucose POC Glucose 176 H Lactic Acid Calcium Phosphorus Magnesium Direct Bilirubin AST ALT Alkaline Phosphatase Lactate Dehydrogenase Troponin T C-Reactive Protein Total Protein Albumin Prealbumin Triglycerides Cholesterol LDL Cholesterol Direct HDL Cholesterol Urine pH Urine WBC (Auto) Urine Creatinine Urine Total Protein Fluid Total Protein Vancomycin Trough Rheumatoid Factor Complement C4 Miscellaneous Test Crossmatch See Detail 12/17/16 12/17/16 12/17/16 00:14 04:00 05:00 WBC 20.0 H RBC 2.99 L Hgb 8.5 L Hct 25.7 L MCV MCH MCHC RDW 17.2 H Plt Count Lymph % (Auto) [place] % (Auto) Lymph # [place] # Baso # Seg Neutrophils % Seg Neuts % (Manual) Lymphocytes % (Manual) Monocytes % (Manual) Eosinophils % (Manual) Basophils % (Manual) Nucleated RBC % Seg Neutrophils # Seg Neutrophils # Man Lymphocytes # (Manual) Monocytes # (Manual) Eosinophils # (Manual) Basophils # (Manual) PT INR Fibrinogen dRVVT Confirm Interp Factor V Activity POC ABG pH POC ABG pCO2 POC ABG pO2 ABG pO2 ABG HCO3 ABG Base Excess ABG Hemoglobin Oxyhemoglobin Sodium Potassium Chloride 97.7 L Carbon Dioxide BUN 73 H Creatinine 1.7 H Glucose 136 H POC Glucose 148 H Lactic Acid Calcium Phosphorus 2.20 L Magnesium 2.70 H Direct Bilirubin AST ALT Alkaline Phosphatase Lactate Dehydrogenase Troponin T C-Reactive Protein Total Protein Albumin Prealbumin Triglycerides Cholesterol LDL Cholesterol Direct HDL Cholesterol Urine pH Urine WBC (Auto) Urine Creatinine Urine Total Protein Fluid Total Protein Vancomycin Trough Rheumatoid Factor Complement C4 Miscellaneous Test Crossmatch 12/17/16 12/17/16 12/17/16 05:39 12:50 16:32 WBC RBC Hgb Hct MCV MCH MCHC RDW Plt Count Lymph % (Auto) [place] % (Auto) Lymph # [place] # Baso # Seg Neutrophils % Seg Neuts % (Manual) Lymphocytes % (Manual) Monocytes % (Manual) Eosinophils % (Manual) Basophils % (Manual) Nucleated RBC % Seg Neutrophils # Seg Neutrophils # Man Lymphocytes # (Manual) Monocytes # (Manual) Eosinophils # (Manual) Basophils # (Manual) PT INR Fibrinogen dRVVT Confirm Interp Factor V Activity POC ABG pH POC ABG pCO2 POC ABG pO2 ABG pO2 ABG HCO3 ABG Base Excess ABG Hemoglobin Oxyhemoglobin Sodium Potassium Chloride Carbon Dioxide BUN Creatinine Glucose POC Glucose 162 H 146 H 169 H Lactic Acid Calcium Phosphorus Magnesium Direct Bilirubin AST ALT Alkaline Phosphatase Lactate Dehydrogenase Troponin T C-Reactive Protein Total Protein Albumin Prealbumin Triglycerides Cholesterol LDL Cholesterol Direct HDL Cholesterol Urine pH Urine WBC (Auto) Urine Creatinine Urine Total Protein Fluid Total Protein Vancomycin Trough Rheumatoid Factor Complement C4 Miscellaneous Test Crossmatch 12/17/16 12/18/16 12/18/16 23:57 05:00 05:32 WBC RBC Hgb Hct MCV MCH MCHC RDW Plt Count Lymph % (Auto) [place] % (Auto) Lymph # [place] # Baso # Seg Neutrophils % Seg Neuts % (Manual) Lymphocytes % (Manual) Monocytes % (Manual) Eosinophils % (Manual) Basophils % (Manual) Nucleated RBC % Seg Neutrophils # Seg Neutrophils # Man Lymphocytes # (Manual) Monocytes # (Manual) Eosinophils # (Manual) Basophils # (Manual) PT INR Fibrinogen dRVVT Confirm Interp Factor V Activity POC ABG pH POC ABG pCO2 POC ABG pO2 ABG pO2 ABG HCO3 ABG Base Excess ABG Hemoglobin Oxyhemoglobin Sodium Potassium Chloride 97.0 L Carbon Dioxide BUN 63 H Creatinine 1.4 H Glucose 174 H POC Glucose 145 H 201 H Lactic Acid Calcium Phosphorus 1.70 L D Magnesium Direct Bilirubin AST ALT Alkaline Phosphatase 257 H Lactate Dehydrogenase Troponin T C-Reactive Protein Total Protein 5.9 L Albumin 1.8 L Prealbumin Triglycerides Cholesterol LDL Cholesterol Direct HDL Cholesterol Urine pH Urine WBC (Auto) Urine Creatinine Urine Total Protein Fluid Total Protein Vancomycin Trough Rheumatoid Factor Complement C4 Miscellaneous Test Crossmatch 12/18/16 12/18/16 12/18/16 11:43 16:52 23:52 WBC RBC Hgb Hct MCV MCH MCHC RDW Plt Count Lymph % (Auto) [place] % (Auto) Lymph # [place] # Baso # Seg Neutrophils % Seg Neuts % (Manual) Lymphocytes % (Manual) Monocytes % (Manual) Eosinophils % (Manual) Basophils % (Manual) Nucleated RBC % Seg Neutrophils # Seg Neutrophils # Man Lymphocytes # (Manual) Monocytes # (Manual) Eosinophils # (Manual) Basophils # (Manual) PT INR Fibrinogen dRVVT Confirm Interp Factor V Activity POC ABG pH POC ABG pCO2 POC ABG pO2 ABG pO2 ABG HCO3 ABG Base Excess ABG Hemoglobin Oxyhemoglobin Sodium Potassium Chloride Carbon Dioxide BUN Creatinine Glucose POC Glucose 177 H 110 H 162 H Lactic Acid Calcium Phosphorus Magnesium Direct Bilirubin AST ALT Alkaline Phosphatase Lactate Dehydrogenase Troponin T C-Reactive Protein Total Protein Albumin Prealbumin Triglycerides Cholesterol LDL Cholesterol Direct HDL Cholesterol Urine pH Urine WBC (Auto) Urine Creatinine Urine Total Protein Fluid Total Protein Vancomycin Trough Rheumatoid Factor Complement C4 Miscellaneous Test Crossmatch 12/19/16 12/19/16 12/19/16 05:02 05:24 09:30 WBC 20.1 H RBC 2.73 L Hgb 7.6 L Hct 23.6 L MCV MCH MCHC RDW 17.6 H Plt Count Lymph % (Auto) [place] % (Auto) Lymph # [place] # Baso # Seg Neutrophils % Seg Neuts % (Manual) Lymphocytes % (Manual) 13.0 L Monocytes % (Manual) Eosinophils % (Manual) Basophils % (Manual) Nucleated RBC % 1.0 H Seg Neutrophils # Seg Neutrophils # Man 12.9 H Lymphocytes # (Manual) Monocytes # (Manual) 1.4 H Eosinophils # (Manual) Basophils # (Manual) 0.2 H PT INR Fibrinogen dRVVT Confirm Interp Factor V Activity POC ABG pH POC ABG pCO2 POC ABG pO2 ABG pO2 ABG HCO3 ABG Base Excess ABG Hemoglobin Oxyhemoglobin Sodium Potassium Chloride 97.8 L Carbon Dioxide BUN 84 H Creatinine 1.6 H Glucose 133 H POC Glucose 134 H Lactic Acid Calcium Phosphorus Magnesium Direct Bilirubin AST ALT Alkaline Phosphatase Lactate Dehydrogenase Troponin T C-Reactive Protein Total Protein Albumin Prealbumin Triglycerides Cholesterol LDL Cholesterol Direct HDL Cholesterol Urine pH Urine WBC (Auto) Urine Creatinine Urine Total Protein Fluid Total Protein Vancomycin Trough Rheumatoid Factor Complement C4 Miscellaneous Test Crossmatch 12/19/16 12/19/16 12/19/16 09:36 11:12 18:29 WBC RBC Hgb Hct MCV MCH MCHC RDW Plt Count Lymph % (Auto) [place] % (Auto) Lymph # [place] # Baso # Seg Neutrophils % Seg Neuts % (Manual) Lymphocytes % (Manual) Monocytes % (Manual) Eosinophils % (Manual) Basophils % (Manual) Nucleated RBC % Seg Neutrophils # Seg Neutrophils # Man Lymphocytes # (Manual) Monocytes # (Manual) Eosinophils # (Manual) Basophils # (Manual) PT INR Fibrinogen dRVVT Confirm Interp Factor V Activity POC ABG pH 7.503 H POC ABG pCO2 30.1 L POC ABG pO2 ABG pO2 ABG HCO3 ABG Base Excess ABG Hemoglobin Oxyhemoglobin Sodium Potassium Chloride Carbon Dioxide BUN Creatinine Glucose POC Glucose 138 H 156 H Lactic Acid Calcium Phosphorus Magnesium Direct Bilirubin AST ALT Alkaline Phosphatase Lactate Dehydrogenase Troponin T C-Reactive Protein Total Protein Albumin Prealbumin Triglycerides Cholesterol LDL Cholesterol Direct HDL Cholesterol Urine pH Urine WBC (Auto) Urine Creatinine Urine Total Protein Fluid Total Protein Vancomycin Trough Rheumatoid Factor Complement C4 Miscellaneous Test Crossmatch 12/20/16 12/20/16 12/20/16 00:03 06:17 07:07 WBC RBC Hgb Hct MCV MCH MCHC RDW Plt Count Lymph % (Auto) [place] % (Auto) Lymph # [place] # Baso # Seg Neutrophils % Seg Neuts % (Manual) Lymphocytes % (Manual) Monocytes % (Manual) Eosinophils % (Manual) Basophils % (Manual) Nucleated RBC % Seg Neutrophils # Seg Neutrophils # Man Lymphocytes # (Manual) Monocytes # (Manual) Eosinophils # (Manual) Basophils # (Manual) PT INR Fibrinogen dRVVT Confirm Interp Factor V Activity POC ABG pH POC ABG pCO2 POC ABG pO2 ABG pO2 ABG HCO3 ABG Base Excess ABG Hemoglobin Oxyhemoglobin Sodium Potassium Chloride 97.1 L Carbon Dioxide 20 L BUN 97 H Creatinine 1.8 H Glucose 153 H POC Glucose 152 H 175 H Lactic Acid Calcium Phosphorus Magnesium Direct Bilirubin AST ALT Alkaline Phosphatase Lactate Dehydrogenase Troponin T C-Reactive Protein Total Protein Albumin Prealbumin Triglycerides Cholesterol LDL Cholesterol Direct HDL Cholesterol Urine pH Urine WBC (Auto) Urine Creatinine Urine Total Protein Fluid Total Protein Vancomycin Trough Rheumatoid Factor Complement C4 Miscellaneous Test Crossmatch 12/20/16 12/20/16 12/20/16 12:00 17:42 23:53 WBC RBC Hgb Hct MCV MCH MCHC RDW Plt Count Lymph % (Auto) [place] % (Auto) Lymph # [place] # Baso # Seg Neutrophils % Seg Neuts % (Manual) Lymphocytes % (Manual) Monocytes % (Manual) Eosinophils % (Manual) Basophils % (Manual) Nucleated RBC % Seg Neutrophils # Seg Neutrophils # Man Lymphocytes # (Manual) Monocytes # (Manual) Eosinophils # (Manual) Basophils # (Manual) PT INR Fibrinogen dRVVT Confirm Interp Factor V Activity POC ABG pH POC ABG pCO2 POC ABG pO2 ABG pO2 ABG HCO3 ABG Base Excess ABG Hemoglobin Oxyhemoglobin Sodium Potassium Chloride Carbon Dioxide BUN Creatinine Glucose POC Glucose 141 H 156 H 132 H Lactic Acid Calcium Phosphorus Magnesium Direct Bilirubin AST ALT Alkaline Phosphatase Lactate Dehydrogenase Troponin T C-Reactive Protein Total Protein Albumin Prealbumin Triglycerides Cholesterol LDL Cholesterol Direct HDL Cholesterol Urine pH Urine WBC (Auto) Urine Creatinine Urine Total Protein Fluid Total Protein Vancomycin Trough Rheumatoid Factor Complement C4 Miscellaneous Test Crossmatch 12/21/16 12/21/16 12/21/16 05:49 08:50 12:19 WBC RBC Hgb Hct MCV MCH MCHC RDW Plt Count Lymph % (Auto) [place] % (Auto) Lymph # [place] # Baso # Seg Neutrophils % Seg Neuts % (Manual) Lymphocytes % (Manual) Monocytes % (Manual) Eosinophils % (Manual) Basophils % (Manual) Nucleated RBC % Seg Neutrophils # Seg Neutrophils # Man Lymphocytes # (Manual) Monocytes # (Manual) Eosinophils # (Manual) Basophils # (Manual) PT INR Fibrinogen dRVVT Confirm Interp Factor V Activity POC ABG pH POC ABG pCO2 POC ABG pO2 ABG pO2 ABG HCO3 ABG Base Excess ABG Hemoglobin Oxyhemoglobin Sodium Potassium 5.2 H D Chloride Carbon Dioxide BUN 63 H Creatinine Glucose 122 H POC Glucose 132 H 136 H Lactic Acid Calcium 8.3 L Phosphorus Magnesium Direct Bilirubin AST ALT Alkaline Phosphatase Lactate Dehydrogenase Troponin T C-Reactive Protein Total Protein Albumin Prealbumin Triglycerides Cholesterol LDL Cholesterol Direct HDL Cholesterol Urine pH Urine WBC (Auto) Urine Creatinine Urine Total Protein Fluid Total Protein Vancomycin Trough Rheumatoid Factor Complement C4 Miscellaneous Test Crossmatch 12/21/16 12/21/16 12/22/16 17:22 23:58 05:49 WBC RBC Hgb Hct MCV MCH MCHC RDW Plt Count Lymph % (Auto) [place] % (Auto) Lymph # [place] # Baso # Seg Neutrophils % Seg Neuts % (Manual) Lymphocytes % (Manual) Monocytes % (Manual) Eosinophils % (Manual) Basophils % (Manual) Nucleated RBC % Seg Neutrophils # Seg Neutrophils # Man Lymphocytes # (Manual) Monocytes # (Manual) Eosinophils # (Manual) Basophils # (Manual) PT INR Fibrinogen dRVVT Confirm Interp Factor V Activity POC ABG pH POC ABG pCO2 POC ABG pO2 ABG pO2 ABG HCO3 ABG Base Excess ABG Hemoglobin Oxyhemoglobin Sodium Potassium Chloride Carbon Dioxide BUN Creatinine Glucose POC Glucose 135 H 149 H 140 H Lactic Acid Calcium Phosphorus Magnesium Direct Bilirubin AST ALT Alkaline Phosphatase Lactate Dehydrogenase Troponin T C-Reactive Protein Total Protein Albumin Prealbumin Triglycerides Cholesterol LDL Cholesterol Direct HDL Cholesterol Urine pH Urine WBC (Auto) Urine Creatinine Urine Total Protein Fluid Total Protein Vancomycin Trough Rheumatoid Factor Complement C4 Miscellaneous Test Crossmatch 12/22/16 12/22/16 12/22/16 06:10 11:17 17:31 WBC RBC Hgb Hct MCV MCH MCHC RDW Plt Count Lymph % (Auto) [place] % (Auto) Lymph # [place] # Baso # Seg Neutrophils % Seg Neuts % (Manual) Lymphocytes % (Manual) Monocytes % (Manual) Eosinophils % (Manual) Basophils % (Manual) Nucleated RBC % Seg Neutrophils # Seg Neutrophils # Man Lymphocytes # (Manual) Monocytes # (Manual) Eosinophils # (Manual) Basophils # (Manual) PT INR Fibrinogen dRVVT Confirm Interp Factor V Activity POC ABG pH POC ABG pCO2 POC ABG pO2 ABG pO2 ABG HCO3 ABG Base Excess ABG Hemoglobin Oxyhemoglobin Sodium Potassium Chloride Carbon Dioxide BUN 76 H Creatinine 1.5 H Glucose 241 H POC Glucose 193 H 148 H Lactic Acid Calcium Phosphorus Magnesium Direct Bilirubin AST ALT Alkaline Phosphatase Lactate Dehydrogenase Troponin T C-Reactive Protein Total Protein Albumin Prealbumin Triglycerides Cholesterol LDL Cholesterol Direct HDL Cholesterol Urine pH Urine WBC (Auto) Urine Creatinine Urine Total Protein Fluid Total Protein Vancomycin Trough Rheumatoid Factor Complement C4 Miscellaneous Test Crossmatch 12/22/16 12/23/16 12/23/16 23:58 05:00 05:26 WBC RBC Hgb Hct MCV MCH MCHC RDW Plt Count Lymph % (Auto) [place] % (Auto) Lymph # [place] # Baso # Seg Neutrophils % Seg Neuts % (Manual) Lymphocytes % (Manual) Monocytes % (Manual) Eosinophils % (Manual) Basophils % (Manual) Nucleated RBC % Seg Neutrophils # Seg Neutrophils # Man Lymphocytes # (Manual) Monocytes # (Manual) Eosinophils # (Manual) Basophils # (Manual) PT INR Fibrinogen dRVVT Confirm Interp Factor V Activity POC ABG pH POC ABG pCO2 POC ABG pO2 ABG pO2 ABG HCO3 ABG Base Excess ABG Hemoglobin Oxyhemoglobin Sodium Potassium Chloride Carbon Dioxide BUN 49 H Creatinine Glucose 143 H POC Glucose 165 H 154 H Lactic Acid Calcium 8.2 L Phosphorus Magnesium 1.60 L Direct Bilirubin AST ALT Alkaline Phosphatase Lactate Dehydrogenase Troponin T C-Reactive Protein Total Protein Albumin Prealbumin Triglycerides Cholesterol LDL Cholesterol Direct HDL Cholesterol Urine pH Urine WBC (Auto) Urine Creatinine Urine Total Protein Fluid Total Protein Vancomycin Trough Rheumatoid Factor Complement C4 Miscellaneous Test Crossmatch 12/23/16 12/23/16 12/24/16 12:35 17:01 00:01 WBC RBC Hgb Hct MCV MCH MCHC RDW Plt Count Lymph % (Auto) [place] % (Auto) Lymph # [place] # Baso # Seg Neutrophils % Seg Neuts % (Manual) Lymphocytes % (Manual) Monocytes % (Manual) Eosinophils % (Manual) Basophils % (Manual) Nucleated RBC % Seg Neutrophils # Seg Neutrophils # Man Lymphocytes # (Manual) Monocytes # (Manual) Eosinophils # (Manual) Basophils # (Manual) PT INR Fibrinogen dRVVT Confirm Interp Factor V Activity POC ABG pH POC ABG pCO2 POC ABG pO2 ABG pO2 ABG HCO3 ABG Base Excess ABG Hemoglobin Oxyhemoglobin Sodium Potassium Chloride Carbon Dioxide BUN Creatinine Glucose POC Glucose 164 H 149 H 135 H Lactic Acid Calcium Phosphorus Magnesium Direct Bilirubin AST ALT Alkaline Phosphatase Lactate Dehydrogenase Troponin T C-Reactive Protein Total Protein Albumin Prealbumin Triglycerides Cholesterol LDL Cholesterol Direct HDL Cholesterol Urine pH Urine WBC (Auto) Urine Creatinine Urine Total Protein Fluid Total Protein Vancomycin Trough Rheumatoid Factor Complement C4 Miscellaneous Test Crossmatch 12/24/16 12/24/16 12/24/16 05:41 07:01 11:38 WBC RBC Hgb Hct MCV MCH MCHC RDW Plt Count Lymph % (Auto) [place] % (Auto) Lymph # [place] # Baso # Seg Neutrophils % Seg Neuts % (Manual) Lymphocytes % (Manual) Monocytes % (Manual) Eosinophils % (Manual) Basophils % (Manual) Nucleated RBC % Seg Neutrophils # Seg Neutrophils # Man Lymphocytes # (Manual) Monocytes # (Manual) Eosinophils # (Manual) Basophils # (Manual) PT INR Fibrinogen dRVVT Confirm Interp Factor V Activity POC ABG pH POC ABG pCO2 POC ABG pO2 ABG pO2 ABG HCO3 ABG Base Excess ABG Hemoglobin Oxyhemoglobin Sodium Potassium Chloride Carbon Dioxide BUN 72 H Creatinine 1.3 H Glucose 130 H POC Glucose 132 H 156 H Lactic Acid Calcium 8.2 L Phosphorus Magnesium Direct Bilirubin AST ALT Alkaline Phosphatase Lactate Dehydrogenase Troponin T C-Reactive Protein Total Protein Albumin Prealbumin Triglycerides Cholesterol LDL Cholesterol Direct HDL Cholesterol Urine pH Urine WBC (Auto) Urine Creatinine Urine Total Protein Fluid Total Protein Vancomycin Trough Rheumatoid Factor Complement C4 Miscellaneous Test Crossmatch 12/24/16 12/25/16 12/25/16 17:53 00:23 05:45 WBC RBC Hgb Hct MCV MCH MCHC RDW Plt Count Lymph % (Auto) [place] % (Auto) Lymph # [place] # Baso # Seg Neutrophils % Seg Neuts % (Manual) Lymphocytes % (Manual) Monocytes % (Manual) Eosinophils % (Manual) Basophils % (Manual) Nucleated RBC % Seg Neutrophils # Seg Neutrophils # Man Lymphocytes # (Manual) Monocytes # (Manual) Eosinophils # (Manual) Basophils # (Manual) PT INR Fibrinogen dRVVT Confirm Interp Factor V Activity POC ABG pH POC ABG pCO2 POC ABG pO2 ABG pO2 ABG HCO3 ABG Base Excess ABG Hemoglobin Oxyhemoglobin Sodium 146 H Potassium Chloride Carbon Dioxide BUN 51 H Creatinine Glucose 109 H POC Glucose 169 H 117 H Lactic Acid Calcium Phosphorus Magnesium Direct Bilirubin AST ALT Alkaline Phosphatase Lactate Dehydrogenase Troponin T C-Reactive Protein Total Protein Albumin Prealbumin Triglycerides Cholesterol LDL Cholesterol Direct HDL Cholesterol Urine pH Urine WBC (Auto) Urine Creatinine Urine Total Protein Fluid Total Protein Vancomycin Trough Rheumatoid Factor Complement C4 Miscellaneous Test Crossmatch 12/25/16 12/25/16 12/25/16 06:43 11:29 17:14 WBC RBC Hgb Hct MCV MCH MCHC RDW Plt Count Lymph % (Auto) [place] % (Auto) Lymph # [place] # Baso # Seg Neutrophils % Seg Neuts % (Manual) Lymphocytes % (Manual) Monocytes % (Manual) Eosinophils % (Manual) Basophils % (Manual) Nucleated RBC % Seg Neutrophils # Seg Neutrophils # Man Lymphocytes # (Manual) Monocytes # (Manual) Eosinophils # (Manual) Basophils # (Manual) PT INR Fibrinogen dRVVT Confirm Interp Factor V Activity POC ABG pH POC ABG pCO2 POC ABG pO2 ABG pO2 ABG HCO3 ABG Base Excess ABG Hemoglobin Oxyhemoglobin Sodium Potassium Chloride Carbon Dioxide BUN Creatinine Glucose POC Glucose 117 H 128 H 120 H Lactic Acid Calcium Phosphorus Magnesium Direct Bilirubin AST ALT Alkaline Phosphatase Lactate Dehydrogenase Troponin T C-Reactive Protein Total Protein Albumin Prealbumin Triglycerides Cholesterol LDL Cholesterol Direct HDL Cholesterol Urine pH Urine WBC (Auto) Urine Creatinine Urine Total Protein Fluid Total Protein Vancomycin Trough Rheumatoid Factor Complement C4 Miscellaneous Test Crossmatch 12/25/16 12/26/16 12/26/16 23:54 05:40 05:50 WBC 16.2 H RBC 2.32 L Hgb 6.2 L Hct 20.1 L MCV MCH 27 L MCHC RDW 18.6 H Plt Count Lymph % (Auto) [place] % (Auto) Lymph # [place] # Baso # Seg Neutrophils % Seg Neuts % (Manual) Lymphocytes % (Manual) Monocytes % (Manual) Eosinophils % (Manual) Basophils % (Manual) Nucleated RBC % Seg Neutrophils # Seg Neutrophils # Man Lymphocytes # (Manual) Monocytes # (Manual) Eosinophils # (Manual) Basophils # (Manual) PT INR Fibrinogen dRVVT Confirm Interp Factor V Activity POC ABG pH POC ABG pCO2 POC ABG pO2 ABG pO2 ABG HCO3 ABG Base Excess ABG Hemoglobin Oxyhemoglobin Sodium Potassium Chloride Carbon Dioxide BUN Creatinine Glucose POC Glucose 126 H 132 H Lactic Acid Calcium Phosphorus Magnesium Direct Bilirubin AST ALT Alkaline Phosphatase Lactate Dehydrogenase Troponin T C-Reactive Protein Total Protein Albumin Prealbumin Triglycerides Cholesterol LDL Cholesterol Direct HDL Cholesterol Urine pH Urine WBC (Auto) Urine Creatinine Urine Total Protein Fluid Total Protein Vancomycin Trough Rheumatoid Factor Complement C4 Miscellaneous Test Crossmatch 12/26/16 12/26/16 12/26/16 05:50 12:17 12:33 WBC RBC Hgb Hct MCV MCH MCHC RDW Plt Count Lymph % (Auto) [place] % (Auto) Lymph # [place] # Baso # Seg Neutrophils % Seg Neuts % (Manual) Lymphocytes % (Manual) Monocytes % (Manual) Eosinophils % (Manual) Basophils % (Manual) Nucleated RBC % Seg Neutrophils # Seg Neutrophils # Man Lymphocytes # (Manual) Monocytes # (Manual) Eosinophils # (Manual) Basophils # (Manual) PT INR Fibrinogen dRVVT Confirm Interp Factor V Activity POC ABG pH POC ABG pCO2 POC ABG pO2 ABG pO2 ABG HCO3 ABG Base Excess ABG Hemoglobin Oxyhemoglobin Sodium Potassium Chloride Carbon Dioxide BUN 73 H Creatinine 1.3 H Glucose 113 H POC Glucose 117 H Lactic Acid Calcium Phosphorus Magnesium Direct Bilirubin AST ALT Alkaline Phosphatase Lactate Dehydrogenase Troponin T C-Reactive Protein Total Protein Albumin Prealbumin Triglycerides Cholesterol LDL Cholesterol Direct HDL Cholesterol Urine pH Urine WBC (Auto) Urine Creatinine Urine Total Protein Fluid Total Protein Vancomycin Trough Rheumatoid Factor Complement C4 Miscellaneous Test Crossmatch See Detail 12/26/16 12/26/16 12/27/16 20:00 23:21 05:00 WBC RBC Hgb 8.4 L Hct 26.3 L D MCV MCH MCHC RDW Plt Count Lymph % (Auto) [place] % (Auto) Lymph # [place] # Baso # Seg Neutrophils % Seg Neuts % (Manual) Lymphocytes % (Manual) Monocytes % (Manual) Eosinophils % (Manual) Basophils % (Manual) Nucleated RBC % Seg Neutrophils # Seg Neutrophils # Man Lymphocytes # (Manual) Monocytes # (Manual) Eosinophils # (Manual) Basophils # (Manual) PT INR Fibrinogen dRVVT Confirm Interp Factor V Activity POC ABG pH POC ABG pCO2 POC ABG pO2 ABG pO2 ABG HCO3 ABG Base Excess ABG Hemoglobin Oxyhemoglobin Sodium Potassium Chloride Carbon Dioxide BUN 85 H Creatinine 1.6 H Glucose 118 H POC Glucose 124 H Lactic Acid Calcium Phosphorus 4.80 H Magnesium Direct Bilirubin AST ALT Alkaline Phosphatase Lactate Dehydrogenase Troponin T C-Reactive Protein Total Protein Albumin Prealbumin Triglycerides Cholesterol LDL Cholesterol Direct HDL Cholesterol Urine pH Urine WBC (Auto) Urine Creatinine Urine Total Protein Fluid Total Protein Vancomycin Trough Rheumatoid Factor Complement C4 Miscellaneous Test Crossmatch 12/27/16 12/27/16 12/27/16 05:00 05:35 12:24 WBC RBC Hgb 7.6 L Hct 22.8 L MCV MCH MCHC RDW Plt Count Lymph % (Auto) [place] % (Auto) Lymph # [place] # Baso # Seg Neutrophils % Seg Neuts % (Manual) Lymphocytes % (Manual) Monocytes % (Manual) Eosinophils % (Manual) Basophils % (Manual) Nucleated RBC % Seg Neutrophils # Seg Neutrophils # Man Lymphocytes # (Manual) Monocytes # (Manual) Eosinophils # (Manual) Basophils # (Manual) PT INR Fibrinogen dRVVT Confirm Interp Factor V Activity POC ABG pH POC ABG pCO2 POC ABG pO2 ABG pO2 ABG HCO3 ABG Base Excess ABG Hemoglobin Oxyhemoglobin Sodium Potassium Chloride Carbon Dioxide BUN Creatinine Glucose POC Glucose 115 H 131 H Lactic Acid Calcium Phosphorus Magnesium Direct Bilirubin AST ALT Alkaline Phosphatase Lactate Dehydrogenase Troponin T C-Reactive Protein Total Protein Albumin Prealbumin Triglycerides Cholesterol LDL Cholesterol Direct HDL Cholesterol Urine pH Urine WBC (Auto) Urine Creatinine Urine Total Protein Fluid Total Protein Vancomycin Trough Rheumatoid Factor Complement C4 Miscellaneous Test Crossmatch 12/27/16 12/28/16 12/28/16 17:16 00:18 04:00 WBC RBC Hgb Hct MCV MCH MCHC RDW Plt Count Lymph % (Auto) [place] % (Auto) Lymph # [place] # Baso # Seg Neutrophils % Seg Neuts % (Manual) Lymphocytes % (Manual) Monocytes % (Manual) Eosinophils % (Manual) Basophils % (Manual) Nucleated RBC % Seg Neutrophils # Seg Neutrophils # Man Lymphocytes # (Manual) Monocytes # (Manual) Eosinophils # (Manual) Basophils # (Manual) PT INR Fibrinogen dRVVT Confirm Interp Factor V Activity POC ABG pH POC ABG pCO2 POC ABG pO2 ABG pO2 ABG HCO3 ABG Base Excess ABG Hemoglobin Oxyhemoglobin Sodium Potassium 3.5 L Chloride Carbon Dioxide BUN 57 H Creatinine Glucose 118 H POC Glucose 136 H 120 H Lactic Acid Calcium 8.3 L Phosphorus Magnesium Direct Bilirubin AST ALT Alkaline Phosphatase Lactate Dehydrogenase Troponin T C-Reactive Protein Total Protein Albumin Prealbumin Triglycerides Cholesterol LDL Cholesterol Direct HDL Cholesterol Urine pH Urine WBC (Auto) Urine Creatinine Urine Total Protein Fluid Total Protein Vancomycin Trough Rheumatoid Factor Complement C4 Miscellaneous Test Crossmatch 12/28/16 12/28/16 12/28/16 04:00 05:11 08:30 WBC 17.0 H RBC 2.58 L Hgb 7.1 L Hct 22.0 L MCV MCH MCHC RDW 17.6 H Plt Count Lymph % (Auto) 12.2 L [place] % (Auto) Lymph # [place] # 1.1 H Baso # Seg Neutrophils % 80.5 H Seg Neuts % (Manual) Lymphocytes % (Manual) Monocytes % (Manual) Eosinophils % (Manual) Basophils % (Manual) Nucleated RBC % Seg Neutrophils # 13.7 H Seg Neutrophils # Man Lymphocytes # (Manual) Monocytes # (Manual) Eosinophils # (Manual) Basophils # (Manual) PT 16.1 H INR 1.23 H Fibrinogen dRVVT Confirm Interp Factor V Activity POC ABG pH POC ABG pCO2 POC ABG pO2 ABG pO2 ABG HCO3 ABG Base Excess ABG Hemoglobin Oxyhemoglobin Sodium Potassium Chloride Carbon Dioxide BUN Creatinine Glucose POC Glucose 122 H Lactic Acid Calcium Phosphorus Magnesium Direct Bilirubin AST ALT Alkaline Phosphatase Lactate Dehydrogenase Troponin T C-Reactive Protein Total Protein Albumin Prealbumin Triglycerides Cholesterol LDL Cholesterol Direct HDL Cholesterol Urine pH Urine WBC (Auto) Urine Creatinine Urine Total Protein Fluid Total Protein Vancomycin Trough Rheumatoid Factor Complement C4 Miscellaneous Test Crossmatch 12/28/16 12/28/16 12/28/16 12:27 16:32 23:46 WBC RBC Hgb Hct MCV MCH MCHC RDW Plt Count Lymph % (Auto) [place] % (Auto) Lymph # [place] # Baso # Seg Neutrophils % Seg Neuts % (Manual) Lymphocytes % (Manual) Monocytes % (Manual) Eosinophils % (Manual) Basophils % (Manual) Nucleated RBC % Seg Neutrophils # Seg Neutrophils # Man Lymphocytes # (Manual) Monocytes # (Manual) Eosinophils # (Manual) Basophils # (Manual) PT INR Fibrinogen dRVVT Confirm Interp Factor V Activity POC ABG pH POC ABG pCO2 POC ABG pO2 ABG pO2 ABG HCO3 ABG Base Excess ABG Hemoglobin Oxyhemoglobin Sodium Potassium Chloride Carbon Dioxide BUN Creatinine Glucose POC Glucose 127 H 117 H 108 H Lactic Acid Calcium Phosphorus Magnesium Direct Bilirubin AST ALT Alkaline Phosphatase Lactate Dehydrogenase Troponin T C-Reactive Protein Total Protein Albumin Prealbumin Triglycerides Cholesterol LDL Cholesterol Direct HDL Cholesterol Urine pH Urine WBC (Auto) Urine Creatinine Urine Total Protein Fluid Total Protein Vancomycin Trough Rheumatoid Factor Complement C4 Miscellaneous Test Crossmatch 12/29/16 12/29/16 12/29/16 05:15 05:15 05:32 WBC RBC Hgb Hct MCV MCH MCHC RDW Plt Count Lymph % (Auto) [place] % (Auto) Lymph # [place] # Baso # Seg Neutrophils % Seg Neuts % (Manual) Lymphocytes % (Manual) Monocytes % (Manual) Eosinophils % (Manual) Basophils % (Manual) Nucleated RBC % Seg Neutrophils # Seg Neutrophils # Man Lymphocytes # (Manual) Monocytes # (Manual) Eosinophils # (Manual) Basophils # (Manual) PT INR Fibrinogen dRVVT Confirm Interp Factor V Activity POC ABG pH POC ABG pCO2 POC ABG pO2 ABG pO2 ABG HCO3 ABG Base Excess ABG Hemoglobin Oxyhemoglobin Sodium Potassium Chloride Carbon Dioxide BUN 74 H Creatinine 1.6 H Glucose 111 H POC Glucose 123 H Lactic Acid Calcium Phosphorus Magnesium Direct Bilirubin AST ALT Alkaline Phosphatase Lactate Dehydrogenase Troponin T C-Reactive Protein Total Protein Albumin Prealbumin 0.110 L Triglycerides Cholesterol LDL Cholesterol Direct HDL Cholesterol Urine pH Urine WBC (Auto) Urine Creatinine Urine Total Protein Fluid Total Protein Vancomycin Trough Rheumatoid Factor Complement C4 Miscellaneous Test Crossmatch 12/29/16 12/29/16 12/29/16 11:43 13:45 14:00 WBC 13.8 H RBC 2.26 L Hgb 6.3 L Hct 20.4 L MCV MCH MCHC RDW 18.3 H Plt Count Lymph % (Auto) [place] % (Auto) Lymph # [place] # 0.9 H Baso # Seg Neutrophils % 78.6 H Seg Neuts % (Manual) Lymphocytes % (Manual) Monocytes % (Manual) Eosinophils % (Manual) Basophils % (Manual) Nucleated RBC % Seg Neutrophils # 10.8 H Seg Neutrophils # Man Lymphocytes # (Manual) Monocytes # (Manual) Eosinophils # (Manual) Basophils # (Manual) PT INR Fibrinogen dRVVT Confirm Interp Factor V Activity POC ABG pH POC ABG pCO2 POC ABG pO2 ABG pO2 ABG HCO3 ABG Base Excess ABG Hemoglobin Oxyhemoglobin Sodium Potassium Chloride Carbon Dioxide BUN Creatinine Glucose POC Glucose 133 H Lactic Acid Calcium Phosphorus Magnesium Direct Bilirubin AST ALT Alkaline Phosphatase Lactate Dehydrogenase Troponin T C-Reactive Protein Total Protein Albumin Prealbumin Triglycerides Cholesterol LDL Cholesterol Direct HDL Cholesterol Urine pH Urine WBC (Auto) Urine Creatinine Urine Total Protein Fluid Total Protein Vancomycin Trough Rheumatoid Factor Complement C4 Miscellaneous Test Crossmatch See Detail 12/29/16 12/29/16 12/29/16 17:03 23:15 23:22 WBC RBC Hgb 7.3 L Hct 22.3 L MCV MCH MCHC RDW Plt Count Lymph % (Auto) [place] % (Auto) Lymph # [place] # Baso # Seg Neutrophils % Seg Neuts % (Manual) Lymphocytes % (Manual) Monocytes % (Manual) Eosinophils % (Manual) Basophils % (Manual) Nucleated RBC % Seg Neutrophils # Seg Neutrophils # Man Lymphocytes # (Manual) Monocytes # (Manual) Eosinophils # (Manual) Basophils # (Manual) PT INR Fibrinogen dRVVT Confirm Interp Factor V Activity POC ABG pH POC ABG pCO2 POC ABG pO2 ABG pO2 ABG HCO3 ABG Base Excess ABG Hemoglobin Oxyhemoglobin Sodium Potassium Chloride Carbon Dioxide BUN Creatinine Glucose POC Glucose 139 H 120 H Lactic Acid Calcium Phosphorus Magnesium Direct Bilirubin AST ALT Alkaline Phosphatase Lactate Dehydrogenase Troponin T C-Reactive Protein Total Protein Albumin Prealbumin Triglycerides Cholesterol LDL Cholesterol Direct HDL Cholesterol Urine pH Urine WBC (Auto) Urine Creatinine Urine Total Protein Fluid Total Protein Vancomycin Trough Rheumatoid Factor Complement C4 Miscellaneous Test Crossmatch 12/30/16 12/30/16 12/30/16 04:20 04:20 05:43 WBC 15.6 H RBC 2.81 L Hgb 8.0 L Hct 24.0 L MCV MCH MCHC RDW 16.9 H Plt Count Lymph % (Auto) [place] % (Auto) Lymph # [place] # 1.0 H Baso # Seg Neutrophils % 76.2 H Seg Neuts % (Manual) Lymphocytes % (Manual) Monocytes % (Manual) Eosinophils % (Manual) Basophils % (Manual) Nucleated RBC % Seg Neutrophils # 11.9 H Seg Neutrophils # Man Lymphocytes # (Manual) Monocytes # (Manual) Eosinophils # (Manual) Basophils # (Manual) PT INR Fibrinogen dRVVT Confirm Interp Factor V Activity POC ABG pH POC ABG pCO2 POC ABG pO2 ABG pO2 ABG HCO3 ABG Base Excess ABG Hemoglobin Oxyhemoglobin Sodium Potassium Chloride Carbon Dioxide BUN 87 H Creatinine 1.8 H Glucose 119 H POC Glucose 115 H Lactic Acid Calcium Phosphorus Magnesium Direct Bilirubin AST ALT Alkaline Phosphatase Lactate Dehydrogenase Troponin T C-Reactive Protein Total Protein Albumin Prealbumin Triglycerides Cholesterol LDL Cholesterol Direct HDL Cholesterol Urine pH Urine WBC (Auto) Urine Creatinine Urine Total Protein Fluid Total Protein Vancomycin Trough Rheumatoid Factor Complement C4 Miscellaneous Test Crossmatch 12/30/16 12/30/16 12/31/16 17:27 23:21 04:00 WBC RBC Hgb Hct MCV MCH MCHC RDW Plt Count Lymph % (Auto) [place] % (Auto) Lymph # [place] # Baso # Seg Neutrophils % Seg Neuts % (Manual) Lymphocytes % (Manual) Monocytes % (Manual) Eosinophils % (Manual) Basophils % (Manual) Nucleated RBC % Seg Neutrophils # Seg Neutrophils # Man Lymphocytes # (Manual) Monocytes # (Manual) Eosinophils # (Manual) Basophils # (Manual) PT INR Fibrinogen dRVVT Confirm Interp Factor V Activity POC ABG pH POC ABG pCO2 POC ABG pO2 ABG pO2 ABG HCO3 ABG Base Excess ABG Hemoglobin Oxyhemoglobin Sodium Potassium Chloride Carbon Dioxide BUN 59 H Creatinine Glucose 298 H POC Glucose 144 H 125 H Lactic Acid Calcium Phosphorus Magnesium Direct Bilirubin AST ALT Alkaline Phosphatase Lactate Dehydrogenase Troponin T C-Reactive Protein Total Protein Albumin Prealbumin Triglycerides Cholesterol LDL Cholesterol Direct HDL Cholesterol Urine pH Urine WBC (Auto) Urine Creatinine Urine Total Protein Fluid Total Protein Vancomycin Trough Rheumatoid Factor Complement C4 Miscellaneous Test Crossmatch 12/31/16 12/31/16 12/31/16 05:11 12:18 18:17 WBC RBC Hgb Hct MCV MCH MCHC RDW Plt Count Lymph % (Auto) [place] % (Auto) Lymph # [place] # Baso # Seg Neutrophils % Seg Neuts % (Manual) Lymphocytes % (Manual) Monocytes % (Manual) Eosinophils % (Manual) Basophils % (Manual) Nucleated RBC % Seg Neutrophils # Seg Neutrophils # Man Lymphocytes # (Manual) Monocytes # (Manual) Eosinophils # (Manual) Basophils # (Manual) PT INR Fibrinogen dRVVT Confirm Interp Factor V Activity POC ABG pH POC ABG pCO2 POC ABG pO2 ABG pO2 ABG HCO3 ABG Base Excess ABG Hemoglobin Oxyhemoglobin Sodium Potassium Chloride Carbon Dioxide BUN Creatinine Glucose POC Glucose 167 H 125 H 133 H Lactic Acid Calcium Phosphorus Magnesium Direct Bilirubin AST ALT Alkaline Phosphatase Lactate Dehydrogenase Troponin T C-Reactive Protein Total Protein Albumin Prealbumin Triglycerides Cholesterol LDL Cholesterol Direct HDL Cholesterol Urine pH Urine WBC (Auto) Urine Creatinine Urine Total Protein Fluid Total Protein Vancomycin Trough Rheumatoid Factor Complement C4 Miscellaneous Test Crossmatch 12/31/16 01/01/17 01/01/17 23:55 05:00 05:12 WBC RBC Hgb Hct MCV MCH MCHC RDW Plt Count Lymph % (Auto) [place] % (Auto) Lymph # [place] # Baso # Seg Neutrophils % Seg Neuts % (Manual) Lymphocytes % (Manual) Monocytes % (Manual) Eosinophils % (Manual) Basophils % (Manual) Nucleated RBC % Seg Neutrophils # Seg Neutrophils # Man Lymphocytes # (Manual) Monocytes # (Manual) Eosinophils # (Manual) Basophils # (Manual) PT INR Fibrinogen dRVVT Confirm Interp Factor V Activity POC ABG pH POC ABG pCO2 POC ABG pO2 ABG pO2 ABG HCO3 ABG Base Excess ABG Hemoglobin Oxyhemoglobin Sodium Potassium Chloride Carbon Dioxide BUN 76 H Creatinine 1.5 H Glucose 109 H POC Glucose 129 H 129 H Lactic Acid Calcium Phosphorus Magnesium Direct Bilirubin AST ALT Alkaline Phosphatase 536 H Lactate Dehydrogenase Troponin T C-Reactive Protein Total Protein Albumin 1.5 L Prealbumin Triglycerides Cholesterol LDL Cholesterol Direct HDL Cholesterol Urine pH Urine WBC (Auto) Urine Creatinine Urine Total Protein Fluid Total Protein Vancomycin Trough Rheumatoid Factor Complement C4 Miscellaneous Test Crossmatch 01/01/17 01/01/17 01/01/17 12:25 17:01 23:32 WBC RBC Hgb Hct MCV MCH MCHC RDW Plt Count Lymph % (Auto) [place] % (Auto) Lymph # [place] # Baso # Seg Neutrophils % Seg Neuts % (Manual) Lymphocytes % (Manual) Monocytes % (Manual) Eosinophils % (Manual) Basophils % (Manual) Nucleated RBC % Seg Neutrophils # Seg Neutrophils # Man Lymphocytes # (Manual) Monocytes # (Manual) Eosinophils # (Manual) Basophils # (Manual) PT INR Fibrinogen dRVVT Confirm Interp Factor V Activity POC ABG pH POC ABG pCO2 POC ABG pO2 ABG pO2 ABG HCO3 ABG Base Excess ABG Hemoglobin Oxyhemoglobin Sodium Potassium Chloride Carbon Dioxide BUN Creatinine Glucose POC Glucose 140 H 142 H 112 H Lactic Acid Calcium Phosphorus Magnesium Direct Bilirubin AST ALT Alkaline Phosphatase Lactate Dehydrogenase Troponin T C-Reactive Protein Total Protein Albumin Prealbumin Triglycerides Cholesterol LDL Cholesterol Direct HDL Cholesterol Urine pH Urine WBC (Auto) Urine Creatinine Urine Total Protein Fluid Total Protein Vancomycin Trough Rheumatoid Factor Complement C4 Miscellaneous Test Crossmatch 01/02/17 01/02/17 01/02/17 04:56 06:00 11:37 WBC RBC Hgb Hct MCV MCH MCHC RDW Plt Count Lymph % (Auto) [place] % (Auto) Lymph # [place] # Baso # Seg Neutrophils % Seg Neuts % (Manual) Lymphocytes % (Manual) Monocytes % (Manual) Eosinophils % (Manual) Basophils % (Manual) Nucleated RBC % Seg Neutrophils # Seg Neutrophils # Man Lymphocytes # (Manual) Monocytes # (Manual) Eosinophils # (Manual) Basophils # (Manual) PT INR Fibrinogen dRVVT Confirm Interp Factor V Activity POC ABG pH POC ABG pCO2 POC ABG pO2 ABG pO2 ABG HCO3 ABG Base Excess ABG Hemoglobin Oxyhemoglobin Sodium Potassium Chloride Carbon Dioxide BUN 88 H Creatinine 1.7 H Glucose 113 H POC Glucose 136 H 200 H Lactic Acid Calcium Phosphorus Magnesium Direct Bilirubin AST ALT Alkaline Phosphatase Lactate Dehydrogenase Troponin T C-Reactive Protein Total Protein Albumin Prealbumin Triglycerides Cholesterol LDL Cholesterol Direct HDL Cholesterol Urine pH Urine WBC (Auto) Urine Creatinine Urine Total Protein Fluid Total Protein Vancomycin Trough Rheumatoid Factor Complement C4 Miscellaneous Test Crossmatch 01/02/17 01/02/17 01/03/17 17:42 22:52 04:54 WBC RBC Hgb Hct MCV MCH MCHC RDW Plt Count Lymph % (Auto) [place] % (Auto) Lymph # [place] # Baso # Seg Neutrophils % Seg Neuts % (Manual) Lymphocytes % (Manual) Monocytes % (Manual) Eosinophils % (Manual) Basophils % (Manual) Nucleated RBC % Seg Neutrophils # Seg Neutrophils # Man Lymphocytes # (Manual) Monocytes # (Manual) Eosinophils # (Manual) Basophils # (Manual) PT INR Fibrinogen dRVVT Confirm Interp Factor V Activity POC ABG pH POC ABG pCO2 POC ABG pO2 ABG pO2 ABG HCO3 ABG Base Excess ABG Hemoglobin Oxyhemoglobin Sodium Potassium Chloride Carbon Dioxide BUN Creatinine Glucose POC Glucose 112 H 133 H 111 H Lactic Acid Calcium Phosphorus Magnesium Direct Bilirubin AST ALT Alkaline Phosphatase Lactate Dehydrogenase Troponin T C-Reactive Protein Total Protein Albumin Prealbumin Triglycerides Cholesterol LDL Cholesterol Direct HDL Cholesterol Urine pH Urine WBC (Auto) Urine Creatinine Urine Total Protein Fluid Total Protein Vancomycin Trough Rheumatoid Factor Complement C4 Miscellaneous Test Crossmatch 01/03/17 01/03/17 01/03/17 05:00 05:00 14:02 WBC 11.2 H RBC 2.56 L Hgb 7.2 L Hct 22.3 L MCV MCH MCHC RDW 17.3 H Plt Count Lymph % (Auto) [place] % (Auto) 10.0 H Lymph # [place] # 1.1 H Baso # Seg Neutrophils % 70.5 H Seg Neuts % (Manual) Lymphocytes % (Manual) Monocytes % (Manual) Eosinophils % (Manual) Basophils % (Manual) Nucleated RBC % Seg Neutrophils # 7.9 H Seg Neutrophils # Man Lymphocytes # (Manual) Monocytes # (Manual) Eosinophils # (Manual) Basophils # (Manual) PT INR Fibrinogen dRVVT Confirm Interp Factor V Activity POC ABG pH POC ABG pCO2 POC ABG pO2 ABG pO2 ABG HCO3 ABG Base Excess ABG Hemoglobin Oxyhemoglobin Sodium Potassium Chloride Carbon Dioxide BUN 60 H Creatinine 1.3 H Glucose 110 H POC Glucose 119 H Lactic Acid Calcium Phosphorus Magnesium Direct Bilirubin AST ALT Alkaline Phosphatase Lactate Dehydrogenase Troponin T C-Reactive Protein Total Protein Albumin Prealbumin Triglycerides Cholesterol LDL Cholesterol Direct HDL Cholesterol Urine pH Urine WBC (Auto) Urine Creatinine Urine Total Protein Fluid Total Protein Vancomycin Trough Rheumatoid Factor Complement C4 Miscellaneous Test Crossmatch 01/03/17 01/03/17 01/04/17 18:13 23:40 05:57 WBC RBC Hgb Hct MCV MCH MCHC RDW Plt Count Lymph % (Auto) [place] % (Auto) Lymph # [place] # Baso # Seg Neutrophils % Seg Neuts % (Manual) Lymphocytes % (Manual) Monocytes % (Manual) Eosinophils % (Manual) Basophils % (Manual) Nucleated RBC % Seg Neutrophils # Seg Neutrophils # Man Lymphocytes # (Manual) Monocytes # (Manual) Eosinophils # (Manual) Basophils # (Manual) PT INR Fibrinogen dRVVT Confirm Interp Factor V Activity POC ABG pH POC ABG pCO2 POC ABG pO2 ABG pO2 ABG HCO3 ABG Base Excess ABG Hemoglobin Oxyhemoglobin Sodium Potassium Chloride Carbon Dioxide BUN Creatinine Glucose POC Glucose 107 H 129 H 111 H Lactic Acid Calcium Phosphorus Magnesium Direct Bilirubin AST ALT Alkaline Phosphatase Lactate Dehydrogenase Troponin T C-Reactive Protein Total Protein Albumin Prealbumin Triglycerides Cholesterol LDL Cholesterol Direct HDL Cholesterol Urine pH Urine WBC (Auto) Urine Creatinine Urine Total Protein Fluid Total Protein Vancomycin Trough Rheumatoid Factor Complement C4 Miscellaneous Test Crossmatch 01/04/17 01/04/17 01/04/17 12:46 15:27 17:11 WBC RBC Hgb Hct MCV MCH MCHC RDW Plt Count Lymph % (Auto) [place] % (Auto) Lymph # [place] # Baso # Seg Neutrophils % Seg Neuts % (Manual) Lymphocytes % (Manual) Monocytes % (Manual) Eosinophils % (Manual) Basophils % (Manual) Nucleated RBC % Seg Neutrophils # Seg Neutrophils # Man Lymphocytes # (Manual) Monocytes # (Manual) Eosinophils # (Manual) Basophils # (Manual) PT INR Fibrinogen dRVVT Confirm Interp Factor V Activity POC ABG pH POC ABG pCO2 POC ABG pO2 ABG pO2 ABG HCO3 ABG Base Excess ABG Hemoglobin Oxyhemoglobin Sodium Potassium Chloride Carbon Dioxide BUN 43 H Creatinine Glucose 124 H POC Glucose 159 H 125 H Lactic Acid Calcium 8.0 L Phosphorus 2.10 L Magnesium Direct Bilirubin AST ALT Alkaline Phosphatase Lactate Dehydrogenase Troponin T C-Reactive Protein Total Protein Albumin Prealbumin Triglycerides Cholesterol LDL Cholesterol Direct HDL Cholesterol Urine pH Urine WBC (Auto) Urine Creatinine Urine Total Protein Fluid Total Protein Vancomycin Trough Rheumatoid Factor Complement C4 Miscellaneous Test Crossmatch 1101/05/17 01/05/17 23:31 04:00 05:46 WBC RBC Hgb Hct MCV MCH MCHC RDW Plt Count Lymph % (Auto) [place] % (Auto) Lymph # [place] # Baso # Seg Neutrophils % Seg Neuts % (Manual) Lymphocytes % (Manual) Monocytes % (Manual) Eosinophils % (Manual) Basophils % (Manual) Nucleated RBC % Seg Neutrophils # Seg Neutrophils # Man Lymphocytes # (Manual) Monocytes # (Manual) Eosinophils # (Manual) Basophils # (Manual) PT INR Fibrinogen dRVVT Confirm Interp Factor V Activity POC ABG pH POC ABG pCO2 POC ABG pO2 ABG pO2 ABG HCO3 ABG Base Excess ABG Hemoglobin Oxyhemoglobin Sodium Potassium Chloride Carbon Dioxide BUN 52 H Creatinine 1.3 H Glucose 113 H POC Glucose 123 H 118 H Lactic Acid Calcium Phosphorus 2.40 L Magnesium Direct Bilirubin AST ALT Alkaline Phosphatase Lactate Dehydrogenase Troponin T C-Reactive Protein Total Protein Albumin Prealbumin Triglycerides Cholesterol LDL Cholesterol Direct HDL Cholesterol Urine pH Urine WBC (Auto) Urine Creatinine Urine Total Protein Fluid Total Protein Vancomycin Trough Rheumatoid Factor Complement C4 Miscellaneous Test Crossmatch 01/05/17 01/05/17 01/05/17 11:41 17:48 23:27 WBC RBC Hgb Hct MCV MCH MCHC RDW Plt Count Lymph % (Auto) [place] % (Auto) Lymph # [place] # Baso # Seg Neutrophils % Seg Neuts % (Manual) Lymphocytes % (Manual) Monocytes % (Manual) Eosinophils % (Manual) Basophils % (Manual) Nucleated RBC % Seg Neutrophils # Seg Neutrophils # Man Lymphocytes # (Manual) Monocytes # (Manual) Eosinophils # (Manual) Basophils # (Manual) PT INR Fibrinogen dRVVT Confirm Interp Factor V Activity POC ABG pH POC ABG pCO2 POC ABG pO2 ABG pO2 ABG HCO3 ABG Base Excess ABG Hemoglobin Oxyhemoglobin Sodium Potassium Chloride Carbon Dioxide BUN Creatinine Glucose POC Glucose 163 H 142 H 155 H Lactic Acid Calcium Phosphorus Magnesium Direct Bilirubin AST ALT Alkaline Phosphatase Lactate Dehydrogenase Troponin T C-Reactive Protein Total Protein Albumin Prealbumin Triglycerides Cholesterol LDL Cholesterol Direct HDL Cholesterol Urine pH Urine WBC (Auto) Urine Creatinine Urine Total Protein Fluid Total Protein Vancomycin Trough Rheumatoid Factor Complement C4 Miscellaneous Test Crossmatch 01/06/17 01/06/17 01/06/17 05:20 07:35 11:18 WBC RBC Hgb Hct MCV MCH MCHC RDW Plt Count Lymph % (Auto) [place] % (Auto) Lymph # [place] # Baso # Seg Neutrophils % Seg Neuts % (Manual) Lymphocytes % (Manual) Monocytes % (Manual) Eosinophils % (Manual) Basophils % (Manual) Nucleated RBC % Seg Neutrophils # Seg Neutrophils # Man Lymphocytes # (Manual) Monocytes # (Manual) Eosinophils # (Manual) Basophils # (Manual) PT INR Fibrinogen dRVVT Confirm Interp Factor V Activity POC ABG pH POC ABG pCO2 POC ABG pO2 ABG pO2 ABG HCO3 ABG Base Excess ABG Hemoglobin Oxyhemoglobin Sodium Potassium Chloride Carbon Dioxide BUN 74 H Creatinine 1.6 H Glucose 135 H POC Glucose 108 H 149 H Lactic Acid Calcium Phosphorus Magnesium Direct Bilirubin AST ALT Alkaline Phosphatase Lactate Dehydrogenase Troponin T C-Reactive Protein Total Protein Albumin Prealbumin Triglycerides Cholesterol LDL Cholesterol Direct HDL Cholesterol Urine pH Urine WBC (Auto) Urine Creatinine Urine Total Protein Fluid Total Protein Vancomycin Trough Rheumatoid Factor Complement C4 Miscellaneous Test Crossmatch 01/06/17 01/07/17 01/07/17 17:17 00:23 05:31 WBC RBC Hgb Hct MCV MCH MCHC RDW Plt Count Lymph % (Auto) [place] % (Auto) Lymph # [place] # Baso # Seg Neutrophils % Seg Neuts % (Manual) Lymphocytes % (Manual) Monocytes % (Manual) Eosinophils % (Manual) Basophils % (Manual) Nucleated RBC % Seg Neutrophils # Seg Neutrophils # Man Lymphocytes # (Manual) Monocytes # (Manual) Eosinophils # (Manual) Basophils # (Manual) PT INR Fibrinogen dRVVT Confirm Interp Factor V Activity POC ABG pH POC ABG pCO2 POC ABG pO2 ABG pO2 ABG HCO3 ABG Base Excess ABG Hemoglobin Oxyhemoglobin Sodium Potassium Chloride Carbon Dioxide BUN Creatinine Glucose POC Glucose 146 H 165 H 153 H Lactic Acid Calcium Phosphorus Magnesium Direct Bilirubin AST ALT Alkaline Phosphatase Lactate Dehydrogenase Troponin T C-Reactive Protein Total Protein Albumin Prealbumin Triglycerides Cholesterol LDL Cholesterol Direct HDL Cholesterol Urine pH Urine WBC (Auto) Urine Creatinine Urine Total Protein Fluid Total Protein Vancomycin Trough Rheumatoid Factor Complement C4 Miscellaneous Test Crossmatch 01/07/17 01/07/17 01/07/17 06:00 11:39 17:11 WBC RBC Hgb Hct MCV MCH MCHC RDW Plt Count Lymph % (Auto) [place] % (Auto) Lymph # [place] # Baso # Seg Neutrophils % Seg Neuts % (Manual) Lymphocytes % (Manual) Monocytes % (Manual) Eosinophils % (Manual) Basophils % (Manual) Nucleated RBC % Seg Neutrophils # Seg Neutrophils # Man Lymphocytes # (Manual) Monocytes # (Manual) Eosinophils # (Manual) Basophils # (Manual) PT INR Fibrinogen dRVVT Confirm Interp Factor V Activity POC ABG pH POC ABG pCO2 POC ABG pO2 ABG pO2 ABG HCO3 ABG Base Excess ABG Hemoglobin Oxyhemoglobin Sodium Potassium Chloride Carbon Dioxide BUN 42 H Creatinine Glucose 175 H POC Glucose 163 H 163 H Lactic Acid Calcium Phosphorus 2.40 L D Magnesium Direct Bilirubin AST ALT Alkaline Phosphatase Lactate Dehydrogenase Troponin T C-Reactive Protein Total Protein Albumin Prealbumin Triglycerides Cholesterol LDL Cholesterol Direct HDL Cholesterol Urine pH Urine WBC (Auto) Urine Creatinine Urine Total Protein Fluid Total Protein Vancomycin Trough Rheumatoid Factor Complement C4 Miscellaneous Test Crossmatch 01/07/17 01/08/17 01/08/17 23:40 05:00 05:00 WBC 27.4 H RBC 2.27 L Hgb 6.1 L Hct 20.4 L MCV MCH 27 L MCHC RDW 17.8 H Plt Count Lymph % (Auto) [place] % (Auto) Lymph # [place] # Baso # Seg Neutrophils % Seg Neuts % (Manual) Lymphocytes % (Manual) Monocytes % (Manual) Eosinophils % (Manual) Basophils % (Manual) Nucleated RBC % Seg Neutrophils # Seg Neutrophils # Man Lymphocytes # (Manual) Monocytes # (Manual) Eosinophils # (Manual) Basophils # (Manual) PT INR Fibrinogen dRVVT Confirm Interp Factor V Activity POC ABG pH POC ABG pCO2 POC ABG pO2 ABG pO2 ABG HCO3 ABG Base Excess ABG Hemoglobin Oxyhemoglobin Sodium Potassium Chloride Carbon Dioxide 16 L D BUN 62 H Creatinine 1.6 H D Glucose 103 H POC Glucose 135 H Lactic Acid Calcium Phosphorus Magnesium Direct Bilirubin AST ALT Alkaline Phosphatase Lactate Dehydrogenase Troponin T C-Reactive Protein Total Protein Albumin Prealbumin Triglycerides Cholesterol LDL Cholesterol Direct HDL Cholesterol Urine pH Urine WBC (Auto) Urine Creatinine Urine Total Protein Fluid Total Protein Vancomycin Trough Rheumatoid Factor Complement C4 Miscellaneous Test Crossmatch 01/08/17 01/08/17 01/08/17 05:25 10:37 10:37 WBC RBC Hgb Hct MCV MCH MCHC RDW Plt Count Lymph % (Auto) [place] % (Auto) Lymph # [place] # Baso # Seg Neutrophils % Seg Neuts % (Manual) Lymphocytes % (Manual) Monocytes % (Manual) Eosinophils % (Manual) Basophils % (Manual) Nucleated RBC % Seg Neutrophils # Seg Neutrophils # Man Lymphocytes # (Manual) Monocytes # (Manual) Eosinophils # (Manual) Basophils # (Manual) PT INR Fibrinogen dRVVT Confirm Interp Factor V Activity POC ABG pH POC ABG pCO2 POC ABG pO2 ABG pO2 ABG HCO3 ABG Base Excess ABG Hemoglobin Oxyhemoglobin Sodium Potassium Chloride Carbon Dioxide BUN Creatinine Glucose POC Glucose 106 H Lactic Acid Calcium Phosphorus Magnesium Direct Bilirubin AST ALT Alkaline Phosphatase Lactate Dehydrogenase Troponin T C-Reactive Protein 24.40 H Total Protein Albumin Prealbumin Triglycerides Cholesterol LDL Cholesterol Direct HDL Cholesterol Urine pH Urine WBC (Auto) Urine Creatinine Urine Total Protein Fluid Total Protein Vancomycin Trough Rheumatoid Factor Complement C4 Miscellaneous Test Crossmatch See Detail 01/08/17 01/08/17 01/08/17 10:37 11:33 15:15 WBC RBC Hgb Hct MCV MCH MCHC RDW Plt Count Lymph % (Auto) [place] % (Auto) Lymph # [place] # Baso # Seg Neutrophils % Seg Neuts % (Manual) Lymphocytes % (Manual) Monocytes % (Manual) Eosinophils % (Manual) Basophils % (Manual) Nucleated RBC % Seg Neutrophils # Seg Neutrophils # Man Lymphocytes # (Manual) Monocytes # (Manual) Eosinophils # (Manual) Basophils # (Manual) PT INR Fibrinogen dRVVT Confirm Interp Factor V Activity POC ABG pH POC ABG pCO2 POC ABG pO2 ABG pO2 ABG HCO3 ABG Base Excess ABG Hemoglobin Oxyhemoglobin Sodium Potassium Chloride Carbon Dioxide BUN Creatinine Glucose POC Glucose 157 H Lactic Acid 9.70 H* 9.10 H* Calcium Phosphorus Magnesium Direct Bilirubin AST ALT Alkaline Phosphatase Lactate Dehydrogenase Troponin T C-Reactive Protein Total Protein Albumin Prealbumin Triglycerides Cholesterol LDL Cholesterol Direct HDL Cholesterol Urine pH Urine WBC (Auto) Urine Creatinine Urine Total Protein Fluid Total Protein Vancomycin Trough Rheumatoid Factor Complement C4 Miscellaneous Test Crossmatch 01/08/17 01/08/17 01/09/17 17:19 23:12 04:40 WBC RBC Hgb Hct MCV MCH MCHC RDW Plt Count Lymph % (Auto) [place] % (Auto) Lymph # [place] # Baso # Seg Neutrophils % Seg Neuts % (Manual) Lymphocytes % (Manual) Monocytes % (Manual) Eosinophils % (Manual) Basophils % (Manual) Nucleated RBC % Seg Neutrophils # Seg Neutrophils # Man Lymphocytes # (Manual) Monocytes # (Manual) Eosinophils # (Manual) Basophils # (Manual) PT INR Fibrinogen dRVVT Confirm Interp Factor V Activity POC ABG pH POC ABG pCO2 POC ABG pO2 ABG pO2 ABG HCO3 ABG Base Excess ABG Hemoglobin Oxyhemoglobin Sodium 147 H Potassium Chloride Carbon Dioxide BUN 82 H Creatinine 1.8 H Glucose 137 H POC Glucose 164 H 157 H Lactic Acid Calcium Phosphorus Magnesium Direct Bilirubin AST ALT Alkaline Phosphatase Lactate Dehydrogenase Troponin T C-Reactive Protein Total Protein Albumin Prealbumin Triglycerides Cholesterol LDL Cholesterol Direct HDL Cholesterol Urine pH Urine WBC (Auto) Urine Creatinine Urine Total Protein Fluid Total Protein Vancomycin Trough Rheumatoid Factor Complement C4 Miscellaneous Test Crossmatch 01/09/17 01/09/17 01/09/17 05:42 08:22 10:57 WBC RBC Hgb Hct MCV MCH MCHC RDW Plt Count Lymph % (Auto) [place] % (Auto) Lymph # [place] # Baso # Seg Neutrophils % Seg Neuts % (Manual) Lymphocytes % (Manual) Monocytes % (Manual) Eosinophils % (Manual) Basophils % (Manual) Nucleated RBC % Seg Neutrophils # Seg Neutrophils # Man Lymphocytes # (Manual) Monocytes # (Manual) Eosinophils # (Manual) Basophils # (Manual) PT INR Fibrinogen dRVVT Confirm Interp Factor V Activity POC ABG pH POC ABG pCO2 POC ABG pO2 ABG pO2 ABG HCO3 ABG Base Excess ABG Hemoglobin Oxyhemoglobin Sodium Potassium Chloride Carbon Dioxide BUN Creatinine Glucose POC Glucose 156 H 122 H Lactic Acid 2.30 H* Calcium Phosphorus Magnesium Direct Bilirubin AST ALT Alkaline Phosphatase Lactate Dehydrogenase Troponin T C-Reactive Protein Total Protein Albumin Prealbumin Triglycerides Cholesterol LDL Cholesterol Direct HDL Cholesterol Urine pH Urine WBC (Auto) Urine Creatinine Urine Total Protein Fluid Total Protein Vancomycin Trough Rheumatoid Factor Complement C4 Miscellaneous Test Crossmatch 01/09/17 01/09/17 01/09/17 13:30 17:14 18:45 WBC RBC Hgb Hct MCV MCH MCHC RDW Plt Count Lymph % (Auto) [place] % (Auto) Lymph # [place] # Baso # Seg Neutrophils % Seg Neuts % (Manual) Lymphocytes % (Manual) Monocytes % (Manual) Eosinophils % (Manual) Basophils % (Manual) Nucleated RBC % Seg Neutrophils # Seg Neutrophils # Man Lymphocytes # (Manual) Monocytes # (Manual) Eosinophils # (Manual) Basophils # (Manual) PT INR Fibrinogen dRVVT Confirm Interp Factor V Activity POC ABG pH POC ABG pCO2 POC ABG pO2 ABG pO2 ABG HCO3 ABG Base Excess ABG Hemoglobin Oxyhemoglobin Sodium Potassium Chloride Carbon Dioxide BUN Creatinine Glucose POC Glucose 127 H Lactic Acid Calcium Phosphorus Magnesium Direct Bilirubin AST ALT Alkaline Phosphatase Lactate Dehydrogenase Troponin T C-Reactive Protein 24.70 H Total Protein Albumin Prealbumin Triglycerides Cholesterol LDL Cholesterol Direct HDL Cholesterol Urine pH Urine WBC (Auto) Urine Creatinine Urine Total Protein Fluid Total Protein Vancomycin Trough Rheumatoid Factor Complement C4 Miscellaneous Test Flexitest 1 H Crossmatch 01/10/17 01/10/17 01/10/17 01:21 04:00 04:00 WBC 18.1 H RBC 3.22 L Hgb 8.8 L Hct 27.0 L D MCV MCH 27 L MCHC RDW 17.0 H Plt Count Lymph % (Auto) [place] % (Auto) Lymph # [place] # Baso # Seg Neutrophils % Seg Neuts % (Manual) Lymphocytes % (Manual) Monocytes % (Manual) Eosinophils % (Manual) Basophils % (Manual) Nucleated RBC % Seg Neutrophils # Seg Neutrophils # Man Lymphocytes # (Manual) Monocytes # (Manual) Eosinophils # (Manual) Basophils # (Manual) PT INR Fibrinogen dRVVT Confirm Interp Factor V Activity POC ABG pH POC ABG pCO2 POC ABG pO2 ABG pO2 ABG HCO3 ABG Base Excess ABG Hemoglobin Oxyhemoglobin Sodium Potassium Chloride Carbon Dioxide BUN 59 H Creatinine 1.3 H Glucose 122 H POC Glucose 160 H Lactic Acid Calcium Phosphorus Magnesium Direct Bilirubin AST ALT Alkaline Phosphatase Lactate Dehydrogenase Troponin T C-Reactive Protein Total Protein Albumin Prealbumin Triglycerides Cholesterol LDL Cholesterol Direct HDL Cholesterol Urine pH Urine WBC (Auto) Urine Creatinine Urine Total Protein Fluid Total Protein Vancomycin Trough Rheumatoid Factor Complement C4 Miscellaneous Test Crossmatch 01/10/17 01/10/17 01/10/17 05:36 12:14 17:55 WBC RBC Hgb Hct MCV MCH MCHC RDW Plt Count Lymph % (Auto) [place] % (Auto) Lymph # [place] # Baso # Seg Neutrophils % Seg Neuts % (Manual) Lymphocytes % (Manual) Monocytes % (Manual) Eosinophils % (Manual) Basophils % (Manual) Nucleated RBC % Seg Neutrophils # Seg Neutrophils # Man Lymphocytes # (Manual) Monocytes # (Manual) Eosinophils # (Manual) Basophils # (Manual) PT INR Fibrinogen dRVVT Confirm Interp Factor V Activity POC ABG pH POC ABG pCO2 POC ABG pO2 ABG pO2 ABG HCO3 ABG Base Excess ABG Hemoglobin Oxyhemoglobin Sodium Potassium Chloride Carbon Dioxide BUN Creatinine Glucose POC Glucose 163 H 120 H 144 H Lactic Acid Calcium Phosphorus Magnesium Direct Bilirubin AST ALT Alkaline Phosphatase Lactate Dehydrogenase Troponin T C-Reactive Protein Total Protein Albumin Prealbumin Triglycerides Cholesterol LDL Cholesterol Direct HDL Cholesterol Urine pH Urine WBC (Auto) Urine Creatinine Urine Total Protein Fluid Total Protein Vancomycin Trough Rheumatoid Factor Complement C4 Miscellaneous Test Crossmatch 01/11/17 01/11/17 01/11/17 00:09 04:00 04:00 WBC 15.8 H RBC 3.04 L Hgb 8.2 L Hct 25.5 L MCV MCH 27 L MCHC RDW 17.3 H Plt Count Lymph % (Auto) [place] % (Auto) Lymph # [place] # Baso # Seg Neutrophils % Seg Neuts % (Manual) Lymphocytes % (Manual) Monocytes % (Manual) Eosinophils % (Manual) Basophils % (Manual) Nucleated RBC % Seg Neutrophils # Seg Neutrophils # Man Lymphocytes # (Manual) Monocytes # (Manual) Eosinophils # (Manual) Basophils # (Manual) PT INR Fibrinogen dRVVT Confirm Interp Factor V Activity POC ABG pH POC ABG pCO2 POC ABG pO2 ABG pO2 ABG HCO3 ABG Base Excess ABG Hemoglobin Oxyhemoglobin Sodium Potassium Chloride Carbon Dioxide BUN 78 H Creatinine 1.6 H Glucose 109 H POC Glucose 122 H Lactic Acid Calcium Phosphorus Magnesium Direct Bilirubin AST ALT Alkaline Phosphatase Lactate Dehydrogenase Troponin T C-Reactive Protein Total Protein Albumin Prealbumin Triglycerides Cholesterol LDL Cholesterol Direct HDL Cholesterol Urine pH Urine WBC (Auto) Urine Creatinine Urine Total Protein Fluid Total Protein Vancomycin Trough Rheumatoid Factor Complement C4 Miscellaneous Test Crossmatch 01/11/17 01/11/17 01/11/17 12:46 18:23 23:42 WBC RBC Hgb Hct MCV MCH MCHC RDW Plt Count Lymph % (Auto) [place] % (Auto) Lymph # [place] # Baso # Seg Neutrophils % Seg Neuts % (Manual) Lymphocytes % (Manual) Monocytes % (Manual) Eosinophils % (Manual) Basophils % (Manual) Nucleated RBC % Seg Neutrophils # Seg Neutrophils # Man Lymphocytes # (Manual) Monocytes # (Manual) Eosinophils # (Manual) Basophils # (Manual) PT INR Fibrinogen dRVVT Confirm Interp Factor V Activity POC ABG pH POC ABG pCO2 POC ABG pO2 ABG pO2 ABG HCO3 ABG Base Excess ABG Hemoglobin Oxyhemoglobin Sodium Potassium Chloride Carbon Dioxide BUN Creatinine Glucose POC Glucose 148 H 125 H 124 H Lactic Acid Calcium Phosphorus Magnesium Direct Bilirubin AST ALT Alkaline Phosphatase Lactate Dehydrogenase Troponin T C-Reactive Protein Total Protein Albumin Prealbumin Triglycerides Cholesterol LDL Cholesterol Direct HDL Cholesterol Urine pH Urine WBC (Auto) Urine Creatinine Urine Total Protein Fluid Total Protein Vancomycin Trough Rheumatoid Factor Complement C4 Miscellaneous Test Crossmatch 01/12/17 01/12/17 01/12/17 04:30 04:30 05:47 WBC 15.8 H RBC 3.31 L Hgb 8.9 L Hct 27.9 L MCV MCH 27 L MCHC RDW 17.4 H Plt Count Lymph % (Auto) [place] % (Auto) Lymph # [place] # Baso # Seg Neutrophils % Seg Neuts % (Manual) Lymphocytes % (Manual) Monocytes % (Manual) Eosinophils % (Manual) Basophils % (Manual) Nucleated RBC % Seg Neutrophils # Seg Neutrophils # Man Lymphocytes # (Manual) Monocytes # (Manual) Eosinophils # (Manual) Basophils # (Manual) PT INR Fibrinogen dRVVT Confirm Interp Factor V Activity POC ABG pH POC ABG pCO2 POC ABG pO2 ABG pO2 ABG HCO3 ABG Base Excess ABG Hemoglobin Oxyhemoglobin Sodium Potassium Chloride Carbon Dioxide BUN 57 H Creatinine Glucose 121 H POC Glucose 110 H Lactic Acid Calcium Phosphorus 2.10 L Magnesium Direct Bilirubin AST ALT Alkaline Phosphatase Lactate Dehydrogenase Troponin T C-Reactive Protein Total Protein Albumin Prealbumin Triglycerides Cholesterol LDL Cholesterol Direct HDL Cholesterol Urine pH Urine WBC (Auto) Urine Creatinine Urine Total Protein Fluid Total Protein Vancomycin Trough Rheumatoid Factor Complement C4 Miscellaneous Test Crossmatch 01/12/17 01/12/17 01/12/17 11:35 17:45 23:14 WBC RBC Hgb Hct MCV MCH MCHC RDW Plt Count Lymph % (Auto) [place] % (Auto) Lymph # [place] # Baso # Seg Neutrophils % Seg Neuts % (Manual) Lymphocytes % (Manual) Monocytes % (Manual) Eosinophils % (Manual) Basophils % (Manual) Nucleated RBC % Seg Neutrophils # Seg Neutrophils # Man Lymphocytes # (Manual) Monocytes # (Manual) Eosinophils # (Manual) Basophils # (Manual) PT INR Fibrinogen dRVVT Confirm Interp Factor V Activity POC ABG pH POC ABG pCO2 POC ABG pO2 ABG pO2 ABG HCO3 ABG Base Excess ABG Hemoglobin Oxyhemoglobin Sodium Potassium Chloride Carbon Dioxide BUN Creatinine Glucose POC Glucose 146 H 117 H 123 H Lactic Acid Calcium Phosphorus Magnesium Direct Bilirubin AST ALT Alkaline Phosphatase Lactate Dehydrogenase Troponin T C-Reactive Protein Total Protein Albumin Prealbumin Triglycerides Cholesterol LDL Cholesterol Direct HDL Cholesterol Urine pH Urine WBC (Auto) Urine Creatinine Urine Total Protein Fluid Total Protein Vancomycin Trough Rheumatoid Factor Complement C4 Miscellaneous Test Crossmatch 01/13/17 01/13/17 01/13/17 05:32 06:00 12:10 WBC RBC Hgb Hct MCV MCH MCHC RDW Plt Count Lymph % (Auto) [place] % (Auto) Lymph # [place] # Baso # Seg Neutrophils % Seg Neuts % (Manual) Lymphocytes % (Manual) Monocytes % (Manual) Eosinophils % (Manual) Basophils % (Manual) Nucleated RBC % Seg Neutrophils # Seg Neutrophils # Man Lymphocytes # (Manual) Monocytes # (Manual) Eosinophils # (Manual) Basophils # (Manual) PT INR Fibrinogen dRVVT Confirm Interp Factor V Activity POC ABG pH POC ABG pCO2 POC ABG pO2 ABG pO2 ABG HCO3 ABG Base Excess ABG Hemoglobin Oxyhemoglobin Sodium Potassium Chloride Carbon Dioxide BUN 80 H Creatinine 1.4 H Glucose 106 H POC Glucose 106 H Lactic Acid Calcium Phosphorus Magnesium Direct Bilirubin AST ALT Alkaline Phosphatase Lactate Dehydrogenase Troponin T C-Reactive Protein Total Protein Albumin Prealbumin Triglycerides Cholesterol LDL Cholesterol Direct HDL Cholesterol Urine pH Urine WBC (Auto) Urine Creatinine Urine Total Protein Fluid Total Protein 3.0 L Vancomycin Trough Rheumatoid Factor Complement C4 Miscellaneous Test Crossmatch 01/13/17 01/13/17 01/13/17 12:17 15:50 17:30 WBC RBC Hgb Hct MCV MCH MCHC RDW Plt Count Lymph % (Auto) [place] % (Auto) Lymph # [place] # Baso # Seg Neutrophils % Seg Neuts % (Manual) Lymphocytes % (Manual) Monocytes % (Manual) Eosinophils % (Manual) Basophils % (Manual) Nucleated RBC % Seg Neutrophils # Seg Neutrophils # Man Lymphocytes # (Manual) Monocytes # (Manual) Eosinophils # (Manual) Basophils # (Manual) PT 15.4 H INR 1.16 H Fibrinogen dRVVT Confirm Interp Factor V Activity POC ABG pH POC ABG pCO2 POC ABG pO2 ABG pO2 ABG HCO3 ABG Base Excess ABG Hemoglobin Oxyhemoglobin Sodium Potassium Chloride Carbon Dioxide BUN Creatinine Glucose POC Glucose 168 H 110 H Lactic Acid Calcium Phosphorus Magnesium Direct Bilirubin AST ALT Alkaline Phosphatase Lactate Dehydrogenase Troponin T C-Reactive Protein Total Protein Albumin Prealbumin Triglycerides Cholesterol LDL Cholesterol Direct HDL Cholesterol Urine pH Urine WBC (Auto) Urine Creatinine Urine Total Protein Fluid Total Protein Vancomycin Trough Rheumatoid Factor Complement C4 Miscellaneous Test Crossmatch 01/13/17 01/14/17 01/14/17 23:42 05:24 05:30 WBC RBC Hgb Hct MCV MCH MCHC RDW Plt Count Lymph % (Auto) [place] % (Auto) Lymph # [place] # Baso # Seg Neutrophils % Seg Neuts % (Manual) Lymphocytes % (Manual) Monocytes % (Manual) Eosinophils % (Manual) Basophils % (Manual) Nucleated RBC % Seg Neutrophils # Seg Neutrophils # Man Lymphocytes # (Manual) Monocytes # (Manual) Eosinophils # (Manual) Basophils # (Manual) PT INR Fibrinogen dRVVT Confirm Interp Factor V Activity POC ABG pH POC ABG pCO2 POC ABG pO2 ABG pO2 ABG HCO3 ABG Base Excess ABG Hemoglobin Oxyhemoglobin Sodium Potassium Chloride Carbon Dioxide BUN 58 H Creatinine Glucose 114 H POC Glucose 155 H 121 H Lactic Acid Calcium Phosphorus Magnesium Direct Bilirubin AST ALT Alkaline Phosphatase Lactate Dehydrogenase Troponin T C-Reactive Protein Total Protein Albumin Prealbumin Triglycerides Cholesterol LDL Cholesterol Direct HDL Cholesterol Urine pH Urine WBC (Auto) Urine Creatinine Urine Total Protein Fluid Total Protein Vancomycin Trough Rheumatoid Factor Complement C4 Miscellaneous Test Crossmatch 01/14/17 01/14/17 01/15/17 12:48 17:36 00:15 WBC RBC Hgb Hct MCV MCH MCHC RDW Plt Count Lymph % (Auto) [place] % (Auto) Lymph # [place] # Baso # Seg Neutrophils % Seg Neuts % (Manual) Lymphocytes % (Manual) Monocytes % (Manual) Eosinophils % (Manual) Basophils % (Manual) Nucleated RBC % Seg Neutrophils # Seg Neutrophils # Man Lymphocytes # (Manual) Monocytes # (Manual) Eosinophils # (Manual) Basophils # (Manual) PT INR Fibrinogen dRVVT Confirm Interp Factor V Activity POC ABG pH POC ABG pCO2 POC ABG pO2 ABG pO2 ABG HCO3 ABG Base Excess ABG Hemoglobin Oxyhemoglobin Sodium Potassium Chloride Carbon Dioxide BUN Creatinine Glucose POC Glucose 130 H 135 H 132 H Lactic Acid Calcium Phosphorus Magnesium Direct Bilirubin AST ALT Alkaline Phosphatase Lactate Dehydrogenase Troponin T C-Reactive Protein Total Protein Albumin Prealbumin Triglycerides Cholesterol LDL Cholesterol Direct HDL Cholesterol Urine pH Urine WBC (Auto) Urine Creatinine Urine Total Protein Fluid Total Protein Vancomycin Trough Rheumatoid Factor Complement C4 Miscellaneous Test Crossmatch 01/15/17 01/15/17 01/15/17 05:01 11:55 12:45 WBC 16.2 H RBC 3.00 L Hgb 8.1 L Hct 25.4 L MCV MCH 27 L MCHC RDW 17.6 H Plt Count Lymph % (Auto) 11.7 L [place] % (Auto) 7.8 H Lymph # [place] # 1.3 H Baso # Seg Neutrophils % 80.1 H Seg Neuts % (Manual) Lymphocytes % (Manual) Monocytes % (Manual) Eosinophils % (Manual) Basophils % (Manual) Nucleated RBC % Seg Neutrophils # 13.0 H Seg Neutrophils # Man Lymphocytes # (Manual) Monocytes # (Manual) Eosinophils # (Manual) Basophils # (Manual) PT INR Fibrinogen dRVVT Confirm Interp Factor V Activity POC ABG pH POC ABG pCO2 POC ABG pO2 ABG pO2 ABG HCO3 ABG Base Excess ABG Hemoglobin Oxyhemoglobin Sodium Potassium Chloride Carbon Dioxide BUN Creatinine Glucose POC Glucose 126 H 125 H Lactic Acid Calcium Phosphorus Magnesium Direct Bilirubin AST ALT Alkaline Phosphatase Lactate Dehydrogenase Troponin T C-Reactive Protein Total Protein Albumin Prealbumin Triglycerides Cholesterol LDL Cholesterol Direct HDL Cholesterol Urine pH Urine WBC (Auto) Urine Creatinine Urine Total Protein Fluid Total Protein Vancomycin Trough Rheumatoid Factor Complement C4 Miscellaneous Test Crossmatch 01/15/17 01/15/17 01/15/17 12:45 17:31 23:39 WBC RBC Hgb Hct MCV MCH MCHC RDW Plt Count Lymph % (Auto) [place] % (Auto) Lymph # [place] # Baso # Seg Neutrophils % Seg Neuts % (Manual) Lymphocytes % (Manual) Monocytes % (Manual) Eosinophils % (Manual) Basophils % (Manual) Nucleated RBC % Seg Neutrophils # Seg Neutrophils # Man Lymphocytes # (Manual) Monocytes # (Manual) Eosinophils # (Manual) Basophils # (Manual) PT INR Fibrinogen dRVVT Confirm Interp Factor V Activity POC ABG pH POC ABG pCO2 POC ABG pO2 ABG pO2 ABG HCO3 ABG Base Excess ABG Hemoglobin Oxyhemoglobin Sodium 136 L Potassium Chloride Carbon Dioxide BUN 87 H Creatinine 1.7 H Glucose 108 H POC Glucose 129 H 112 H Lactic Acid Calcium Phosphorus Magnesium Direct Bilirubin AST ALT Alkaline Phosphatase Lactate Dehydrogenase Troponin T C-Reactive Protein Total Protein Albumin Prealbumin Triglycerides Cholesterol LDL Cholesterol Direct HDL Cholesterol Urine pH Urine WBC (Auto) Urine Creatinine Urine Total Protein Fluid Total Protein Vancomycin Trough Rheumatoid Factor Complement C4 Miscellaneous Test Crossmatch 01/16/17 01/16/17 01/16/17 05:23 11:42 12:32 WBC RBC Hgb Hct MCV MCH MCHC RDW Plt Count Lymph % (Auto) [place] % (Auto) Lymph # [place] # Baso # Seg Neutrophils % Seg Neuts % (Manual) Lymphocytes % (Manual) Monocytes % (Manual) Eosinophils % (Manual) Basophils % (Manual) Nucleated RBC % Seg Neutrophils # Seg Neutrophils # Man Lymphocytes # (Manual) Monocytes # (Manual) Eosinophils # (Manual) Basophils # (Manual) PT INR Fibrinogen dRVVT Confirm Interp Factor V Activity POC ABG pH 7.499 H POC ABG pCO2 30.9 L POC ABG pO2 51 L ABG pO2 ABG HCO3 ABG Base Excess ABG Hemoglobin Oxyhemoglobin Sodium Potassium Chloride Carbon Dioxide BUN Creatinine Glucose POC Glucose 118 H 133 H Lactic Acid Calcium Phosphorus Magnesium Direct Bilirubin AST ALT Alkaline Phosphatase Lactate Dehydrogenase Troponin T C-Reactive Protein Total Protein Albumin Prealbumin Triglycerides Cholesterol LDL Cholesterol Direct HDL Cholesterol Urine pH Urine WBC (Auto) Urine Creatinine Urine Total Protein Fluid Total Protein Vancomycin Trough Rheumatoid Factor Complement C4 Miscellaneous Test Crossmatch 01/16/17 01/16/17 01/16/17 17:52 23:57 Unknown WBC RBC Hgb Hct MCV MCH MCHC RDW Plt Count Lymph % (Auto) [place] % (Auto) Lymph # [place] # Baso # Seg Neutrophils % Seg Neuts % (Manual) Lymphocytes % (Manual) Monocytes % (Manual) Eosinophils % (Manual) Basophils % (Manual) Nucleated RBC % Seg Neutrophils # Seg Neutrophils # Man Lymphocytes # (Manual) Monocytes # (Manual) Eosinophils # (Manual) Basophils # (Manual) PT INR Fibrinogen dRVVT Confirm Interp Factor V Activity POC ABG pH POC ABG pCO2 POC ABG pO2 ABG pO2 ABG HCO3 ABG Base Excess ABG Hemoglobin Oxyhemoglobin Sodium 135 L Potassium Chloride Carbon Dioxide BUN 101 H Creatinine 1.8 H Glucose 117 H POC Glucose 130 H 143 H Lactic Acid Calcium Phosphorus 5.80 H Magnesium Direct Bilirubin AST ALT Alkaline Phosphatase Lactate Dehydrogenase Troponin T C-Reactive Protein Total Protein Albumin Prealbumin Triglycerides Cholesterol LDL Cholesterol Direct HDL Cholesterol Urine pH Urine WBC (Auto) Urine Creatinine Urine Total Protein Fluid Total Protein Vancomycin Trough Rheumatoid Factor Complement C4 Miscellaneous Test Crossmatch 01/17/17 01/17/17 01/17/17 05:30 05:46 11:49 WBC RBC Hgb Hct MCV MCH MCHC RDW Plt Count Lymph % (Auto) [place] % (Auto) Lymph # [place] # Baso # Seg Neutrophils % Seg Neuts % (Manual) Lymphocytes % (Manual) Monocytes % (Manual) Eosinophils % (Manual) Basophils % (Manual) Nucleated RBC % Seg Neutrophils # Seg Neutrophils # Man Lymphocytes # (Manual) Monocytes # (Manual) Eosinophils # (Manual) Basophils # (Manual) PT INR Fibrinogen dRVVT Confirm Interp Factor V Activity POC ABG pH POC ABG pCO2 POC ABG pO2 ABG pO2 ABG HCO3 ABG Base Excess ABG Hemoglobin Oxyhemoglobin Sodium 134 L Potassium Chloride 95.8 L Carbon Dioxide BUN 66 H Creatinine 1.3 H Glucose 138 H POC Glucose 147 H 124 H Lactic Acid Calcium Phosphorus Magnesium Direct Bilirubin AST ALT Alkaline Phosphatase 254 H Lactate Dehydrogenase Troponin T C-Reactive Protein Total Protein Albumin 1.3 L Prealbumin Triglycerides Cholesterol LDL Cholesterol Direct HDL Cholesterol Urine pH Urine WBC (Auto) Urine Creatinine Urine Total Protein Fluid Total Protein Vancomycin Trough Rheumatoid Factor Complement C4 Miscellaneous Test Crossmatch 01/17/17 01/17/17 01/18/17 17:30 23:41 05:15 WBC RBC Hgb Hct MCV MCH MCHC RDW Plt Count Lymph % (Auto) [place] % (Auto) Lymph # [place] # Baso # Seg Neutrophils % Seg Neuts % (Manual) Lymphocytes % (Manual) Monocytes % (Manual) Eosinophils % (Manual) Basophils % (Manual) Nucleated RBC % Seg Neutrophils # Seg Neutrophils # Man Lymphocytes # (Manual) Monocytes # (Manual) Eosinophils # (Manual) Basophils # (Manual) PT INR Fibrinogen dRVVT Confirm Interp Factor V Activity POC ABG pH POC ABG pCO2 POC ABG pO2 ABG pO2 ABG HCO3 ABG Base Excess ABG Hemoglobin Oxyhemoglobin Sodium Potassium Chloride Carbon Dioxide BUN 89 H Creatinine 1.7 H Glucose 118 H POC Glucose 137 H 119 H Lactic Acid Calcium Phosphorus Magnesium Direct Bilirubin AST ALT Alkaline Phosphatase Lactate Dehydrogenase Troponin T C-Reactive Protein Total Protein Albumin Prealbumin Triglycerides Cholesterol LDL Cholesterol Direct HDL Cholesterol Urine pH Urine WBC (Auto) Urine Creatinine Urine Total Protein Fluid Total Protein Vancomycin Trough Rheumatoid Factor Complement C4 Miscellaneous Test Crossmatch 01/18/17 01/18/17 01/18/17 05:19 12:16 18:11 WBC RBC Hgb Hct MCV MCH MCHC RDW Plt Count Lymph % (Auto) [place] % (Auto) Lymph # [place] # Baso # Seg Neutrophils % Seg Neuts % (Manual) Lymphocytes % (Manual) Monocytes % (Manual) Eosinophils % (Manual) Basophils % (Manual) Nucleated RBC % Seg Neutrophils # Seg Neutrophils # Man Lymphocytes # (Manual) Monocytes # (Manual) Eosinophils # (Manual) Basophils # (Manual) PT INR Fibrinogen dRVVT Confirm Interp Factor V Activity POC ABG pH POC ABG pCO2 POC ABG pO2 ABG pO2 ABG HCO3 ABG Base Excess ABG Hemoglobin Oxyhemoglobin Sodium Potassium Chloride Carbon Dioxide BUN Creatinine Glucose POC Glucose 134 H 188 H 113 H Lactic Acid Calcium Phosphorus Magnesium Direct Bilirubin AST ALT Alkaline Phosphatase Lactate Dehydrogenase Troponin T C-Reactive Protein Total Protein Albumin Prealbumin Triglycerides Cholesterol LDL Cholesterol Direct HDL Cholesterol Urine pH Urine WBC (Auto) Urine Creatinine Urine Total Protein Fluid Total Protein Vancomycin Trough Rheumatoid Factor Complement C4 Miscellaneous Test Crossmatch 01/19/17 01/19/17 01/19/17 00:00 05:30 05:36 WBC RBC Hgb Hct MCV MCH MCHC RDW Plt Count Lymph % (Auto) [place] % (Auto) Lymph # [place] # Baso # Seg Neutrophils % Seg Neuts % (Manual) Lymphocytes % (Manual) Monocytes % (Manual) Eosinophils % (Manual) Basophils % (Manual) Nucleated RBC % Seg Neutrophils # Seg Neutrophils # Man Lymphocytes # (Manual) Monocytes # (Manual) Eosinophils # (Manual) Basophils # (Manual) PT INR Fibrinogen dRVVT Confirm Interp Factor V Activity POC ABG pH POC ABG pCO2 POC ABG pO2 ABG pO2 ABG HCO3 ABG Base Excess ABG Hemoglobin Oxyhemoglobin Sodium Potassium Chloride Carbon Dioxide BUN 70 H Creatinine 1.5 H Glucose 121 H POC Glucose 137 H 155 H Lactic Acid Calcium Phosphorus 2.10 L D Magnesium Direct Bilirubin AST ALT Alkaline Phosphatase Lactate Dehydrogenase Troponin T C-Reactive Protein Total Protein Albumin Prealbumin Triglycerides Cholesterol LDL Cholesterol Direct HDL Cholesterol Urine pH Urine WBC (Auto) Urine Creatinine Urine Total Protein Fluid Total Protein Vancomycin Trough Rheumatoid Factor Complement C4 Miscellaneous Test Crossmatch 01/19/17 01/19/17 01/19/17 11:59 15:32 17:57 WBC RBC Hgb Hct MCV MCH MCHC RDW Plt Count Lymph % (Auto) [place] % (Auto) Lymph # [place] # Baso # Seg Neutrophils % Seg Neuts % (Manual) Lymphocytes % (Manual) Monocytes % (Manual) Eosinophils % (Manual) Basophils % (Manual) Nucleated RBC % Seg Neutrophils # Seg Neutrophils # Man Lymphocytes # (Manual) Monocytes # (Manual) Eosinophils # (Manual) Basophils # (Manual) PT INR Fibrinogen dRVVT Confirm Interp Factor V Activity POC ABG pH POC ABG pCO2 33.1 L POC ABG pO2 76 L ABG pO2 ABG HCO3 ABG Base Excess ABG Hemoglobin Oxyhemoglobin Sodium Potassium Chloride Carbon Dioxide BUN Creatinine Glucose POC Glucose 156 H 129 H Lactic Acid Calcium Phosphorus Magnesium Direct Bilirubin AST ALT Alkaline Phosphatase Lactate Dehydrogenase Troponin T C-Reactive Protein Total Protein Albumin Prealbumin Triglycerides Cholesterol LDL Cholesterol Direct HDL Cholesterol Urine pH Urine WBC (Auto) Urine Creatinine Urine Total Protein Fluid Total Protein Vancomycin Trough Rheumatoid Factor Complement C4 Miscellaneous Test Crossmatch 01/19/17 01/20/17 01/20/17 23:49 04:00 05:21 WBC RBC Hgb Hct MCV MCH MCHC RDW Plt Count Lymph % (Auto) [place] % (Auto) Lymph # [place] # Baso # Seg Neutrophils % Seg Neuts % (Manual) Lymphocytes % (Manual) Monocytes % (Manual) Eosinophils % (Manual) Basophils % (Manual) Nucleated RBC % Seg Neutrophils # Seg Neutrophils # Man Lymphocytes # (Manual) Monocytes # (Manual) Eosinophils # (Manual) Basophils # (Manual) PT INR Fibrinogen dRVVT Confirm Interp Factor V Activity POC ABG pH POC ABG pCO2 POC ABG pO2 ABG pO2 ABG HCO3 ABG Base Excess ABG Hemoglobin Oxyhemoglobin Sodium Potassium Chloride Carbon Dioxide BUN 96 H Creatinine 1.9 H Glucose 106 H POC Glucose 125 H 130 H Lactic Acid Calcium Phosphorus 2.40 L Magnesium Direct Bilirubin AST ALT Alkaline Phosphatase Lactate Dehydrogenase Troponin T C-Reactive Protein Total Protein Albumin Prealbumin Triglycerides Cholesterol LDL Cholesterol Direct HDL Cholesterol Urine pH Urine WBC (Auto) Urine Creatinine Urine Total Protein Fluid Total Protein Vancomycin Trough Rheumatoid Factor Complement C4 Miscellaneous Test Crossmatch 01/20/17 01/20/17 01/20/17 11:58 12:17 17:26 WBC RBC Hgb Hct MCV MCH MCHC RDW Plt Count Lymph % (Auto) [place] % (Auto) Lymph # [place] # Baso # Seg Neutrophils % Seg Neuts % (Manual) Lymphocytes % (Manual) Monocytes % (Manual) Eosinophils % (Manual) Basophils % (Manual) Nucleated RBC % Seg Neutrophils # Seg Neutrophils # Man Lymphocytes # (Manual) Monocytes # (Manual) Eosinophils # (Manual) Basophils # (Manual) PT INR Fibrinogen dRVVT Confirm Interp Factor V Activity POC ABG pH POC ABG pCO2 POC ABG pO2 70 L ABG pO2 ABG HCO3 ABG Base Excess ABG Hemoglobin Oxyhemoglobin Sodium Potassium Chloride Carbon Dioxide BUN Creatinine Glucose POC Glucose 118 H 154 H Lactic Acid Calcium Phosphorus Magnesium Direct Bilirubin AST ALT Alkaline Phosphatase Lactate Dehydrogenase Troponin T C-Reactive Protein Total Protein Albumin Prealbumin Triglycerides Cholesterol LDL Cholesterol Direct HDL Cholesterol Urine pH Urine WBC (Auto) Urine Creatinine Urine Total Protein Fluid Total Protein Vancomycin Trough Rheumatoid Factor Complement C4 Miscellaneous Test Crossmatch 01/21/17 01/21/17 01/21/17 04:00 04:56 11:46 WBC RBC Hgb Hct MCV MCH MCHC RDW Plt Count Lymph % (Auto) [place] % (Auto) Lymph # [place] # Baso # Seg Neutrophils % Seg Neuts % (Manual) Lymphocytes % (Manual) Monocytes % (Manual) Eosinophils % (Manual) Basophils % (Manual) Nucleated RBC % Seg Neutrophils # Seg Neutrophils # Man Lymphocytes # (Manual) Monocytes # (Manual) Eosinophils # (Manual) Basophils # (Manual) PT INR Fibrinogen dRVVT Confirm Interp Factor V Activity POC ABG pH POC ABG pCO2 POC ABG pO2 ABG pO2 ABG HCO3 ABG Base Excess ABG Hemoglobin Oxyhemoglobin Sodium Potassium 3.5 L Chloride 97.4 L Carbon Dioxide BUN 66 H Creatinine 1.4 H Glucose POC Glucose 116 H 106 H Lactic Acid Calcium Phosphorus 2.10 L Magnesium Direct Bilirubin AST ALT Alkaline Phosphatase Lactate Dehydrogenase Troponin T C-Reactive Protein Total Protein Albumin Prealbumin Triglycerides Cholesterol LDL Cholesterol Direct HDL Cholesterol Urine pH Urine WBC (Auto) Urine Creatinine Urine Total Protein Fluid Total Protein Vancomycin Trough Rheumatoid Factor Complement C4 Miscellaneous Test Crossmatch 01/21/17 01/21/17 01/22/17 17:25 23:49 05:35 WBC RBC Hgb Hct MCV MCH MCHC RDW Plt Count Lymph % (Auto) [place] % (Auto) Lymph # [place] # Baso # Seg Neutrophils % Seg Neuts % (Manual) Lymphocytes % (Manual) Monocytes % (Manual) Eosinophils % (Manual) Basophils % (Manual) Nucleated RBC % Seg Neutrophils # Seg Neutrophils # Man Lymphocytes # (Manual) Monocytes # (Manual) Eosinophils # (Manual) Basophils # (Manual) PT INR Fibrinogen dRVVT Confirm Interp Factor V Activity POC ABG pH POC ABG pCO2 POC ABG pO2 ABG pO2 ABG HCO3 ABG Base Excess ABG Hemoglobin Oxyhemoglobin Sodium Potassium Chloride Carbon Dioxide BUN Creatinine Glucose POC Glucose 106 H 133 H 107 H Lactic Acid Calcium Phosphorus Magnesium Direct Bilirubin AST ALT Alkaline Phosphatase Lactate Dehydrogenase Troponin T C-Reactive Protein Total Protein Albumin Prealbumin Triglycerides Cholesterol LDL Cholesterol Direct HDL Cholesterol Urine pH Urine WBC (Auto) Urine Creatinine Urine Total Protein Fluid Total Protein Vancomycin Trough Rheumatoid Factor Complement C4 Miscellaneous Test Crossmatch 01/22/17 01/22/17 01/22/17 07:20 07:20 11:31 WBC RBC 2.75 L Hgb 7.5 L Hct 22.7 L MCV MCH 27 L MCHC RDW 17.5 H Plt Count Lymph % (Auto) [place] % (Auto) Lymph # [place] # Baso # Seg Neutrophils % Seg Neuts % (Manual) Lymphocytes % (Manual) Monocytes % (Manual) Eosinophils % (Manual) Basophils % (Manual) Nucleated RBC % Seg Neutrophils # Seg Neutrophils # Man Lymphocytes # (Manual) Monocytes # (Manual) Eosinophils # (Manual) Basophils # (Manual) PT INR Fibrinogen dRVVT Confirm Interp Factor V Activity POC ABG pH POC ABG pCO2 POC ABG pO2 ABG pO2 ABG HCO3 ABG Base Excess ABG Hemoglobin Oxyhemoglobin Sodium Potassium 3.3 L Chloride Carbon Dioxide BUN 42 H Creatinine Glucose 105 H POC Glucose 124 H Lactic Acid Calcium Phosphorus 1.70 L Magnesium Direct Bilirubin AST ALT Alkaline Phosphatase Lactate Dehydrogenase Troponin T C-Reactive Protein Total Protein Albumin Prealbumin Triglycerides Cholesterol LDL Cholesterol Direct HDL Cholesterol Urine pH Urine WBC (Auto) Urine Creatinine Urine Total Protein Fluid Total Protein Vancomycin Trough Rheumatoid Factor Complement C4 Miscellaneous Test Crossmatch 01/22/17 01/22/17 01/23/17 17:16 23:35 05:35 WBC RBC Hgb Hct MCV MCH MCHC RDW Plt Count Lymph % (Auto) [place] % (Auto) Lymph # [place] # Baso # Seg Neutrophils % Seg Neuts % (Manual) Lymphocytes % (Manual) Monocytes % (Manual) Eosinophils % (Manual) Basophils % (Manual) Nucleated RBC % Seg Neutrophils # Seg Neutrophils # Man Lymphocytes # (Manual) Monocytes # (Manual) Eosinophils # (Manual) Basophils # (Manual) PT INR Fibrinogen dRVVT Confirm Interp Factor V Activity POC ABG pH POC ABG pCO2 POC ABG pO2 ABG pO2 ABG HCO3 ABG Base Excess ABG Hemoglobin Oxyhemoglobin Sodium Potassium Chloride Carbon Dioxide BUN Creatinine Glucose POC Glucose 135 H 120 H 111 H Lactic Acid Calcium Phosphorus Magnesium Direct Bilirubin AST ALT Alkaline Phosphatase Lactate Dehydrogenase Troponin T C-Reactive Protein Total Protein Albumin Prealbumin Triglycerides Cholesterol LDL Cholesterol Direct HDL Cholesterol Urine pH Urine WBC (Auto) Urine Creatinine Urine Total Protein Fluid Total Protein Vancomycin Trough Rheumatoid Factor Complement C4 Miscellaneous Test Crossmatch 01/23/17 01/23/17 01/23/17 06:10 17:27 23:44 WBC RBC Hgb Hct MCV MCH MCHC RDW Plt Count Lymph % (Auto) [place] % (Auto) Lymph # [place] # Baso # Seg Neutrophils % Seg Neuts % (Manual) Lymphocytes % (Manual) Monocytes % (Manual) Eosinophils % (Manual) Basophils % (Manual) Nucleated RBC % Seg Neutrophils # Seg Neutrophils # Man Lymphocytes # (Manual) Monocytes # (Manual) Eosinophils # (Manual) Basophils # (Manual) PT INR Fibrinogen dRVVT Confirm Interp Factor V Activity POC ABG pH POC ABG pCO2 POC ABG pO2 ABG pO2 ABG HCO3 ABG Base Excess ABG Hemoglobin Oxyhemoglobin Sodium Potassium 3.3 L Chloride Carbon Dioxide BUN 66 H Creatinine 1.3 H Glucose 109 H POC Glucose 120 H 115 H Lactic Acid Calcium Phosphorus 2.20 L D Magnesium Direct Bilirubin AST ALT Alkaline Phosphatase Lactate Dehydrogenase Troponin T C-Reactive Protein Total Protein Albumin Prealbumin Triglycerides Cholesterol LDL Cholesterol Direct HDL Cholesterol Urine pH Urine WBC (Auto) Urine Creatinine Urine Total Protein Fluid Total Protein Vancomycin Trough Rheumatoid Factor Complement C4 Miscellaneous Test Crossmatch 01/24/17 01/24/17 05:19 05:50 WBC RBC Hgb Hct MCV MCH MCHC RDW Plt Count Lymph % (Auto) [place] % (Auto) Lymph # [place] # Baso # Seg Neutrophils % Seg Neuts % (Manual) Lymphocytes % (Manual) Monocytes % (Manual) Eosinophils % (Manual) Basophils % (Manual) Nucleated RBC % Seg Neutrophils # Seg Neutrophils # Man Lymphocytes # (Manual) Monocytes # (Manual) Eosinophils # (Manual) Basophils # (Manual) PT INR Fibrinogen dRVVT Confirm Interp Factor V Activity POC ABG pH POC ABG pCO2 POC ABG pO2 ABG pO2 ABG HCO3 ABG Base Excess ABG Hemoglobin Oxyhemoglobin Sodium Potassium Chloride Carbon Dioxide BUN 47 H Creatinine Glucose 117 H POC Glucose 126 H Lactic Acid Calcium Phosphorus 2.30 L Magnesium 1.60 L Direct Bilirubin AST ALT Alkaline Phosphatase Lactate Dehydrogenase Troponin T C-Reactive Protein Total Protein Albumin Prealbumin Triglycerides Cholesterol LDL Cholesterol Direct HDL Cholesterol Urine pH Urine WBC (Auto) Urine Creatinine Urine Total Protein Fluid Total Protein Vancomycin Trough Rheumatoid Factor Complement C4 Miscellaneous Test Crossmatch Allied health notes reviewed: RT (not tolerating weaning. Has been on hold as she has been vomiting)
[2017-01-24] MEDS ORDERED: MAGNESIUM SULFATE 1 GM in NACL 0.9% 50 ML IV ONE (11:00)
--- NOTE | 2017-01-24 14:32 | Progress Note ---
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 Current Visit: Yes Status: Acute Plan to address problem: 1) Debride at bedside tomorrow Subjective Date of service: 01/24/17 Patient Reports: Positive: no new complaints Objective Vital Signs - 12hr 01/24/17 01/24/17 01/24/17 03:00 03:03 03:55 Temperature 99.7 F H Pulse Rate 110 H Pulse Rate [ Anterior Bilateral Throughout] Respiratory 24 Rate Respiratory Rate [Anterior Bilateral Throughout] Blood Pressure 112/67 O2 Sat by Pulse 100 Oximetry O2 Sat by Pulse 99 Oximetry [ Assessment] 01/24/17 01/24/17 01/24/17 04:00 04:20 05:00 Temperature Pulse Rate 106 H 105 H 101 H Pulse Rate [ Anterior Bilateral Throughout] Respiratory 17 19 Rate Respiratory Rate [Anterior Bilateral Throughout] Blood Pressure 113/68 118/70 96/50 O2 Sat by Pulse 100 100 100 Oximetry O2 Sat by Pulse Oximetry [ Assessment] 01/24/17 01/24/17 01/24/17 05:51 06:00 07:00 Temperature Pulse Rate 108 H 101 H 95 H Pulse Rate [ Anterior Bilateral Throughout] Respiratory 23 20 Rate Respiratory Rate [Anterior Bilateral Throughout] Blood Pressure 125/80 130/77 124/78 O2 Sat by Pulse 100 100 Oximetry O2 Sat by Pulse Oximetry [ Assessment] 01/24/17 01/24/17 01/24/17 08:00 09:00 09:35 Temperature 97.8 F Pulse Rate 98 H 96 H 97 H Pulse Rate [ Anterior Bilateral Throughout] Respiratory 25 H 22 Rate Respiratory Rate [Anterior Bilateral Throughout] Blood Pressure 124/78 111/72 112/71 O2 Sat by Pulse 100 Oximetry O2 Sat by Pulse Oximetry [ Assessment] 01/24/17 01/24/17 01/24/17 09:41 09:51 10:00 Temperature Pulse Rate 101 H Pulse Rate [ 103 H 101 H Anterior Bilateral Throughout] Respiratory 24 Rate Respiratory 29 H 21 Rate [Anterior Bilateral Throughout] Blood Pressure 125/79 O2 Sat by Pulse 99 Oximetry O2 Sat by Pulse Oximetry [ Assessment] 01/24/17 01/24/17 01/24/17 10:02 11:00 12:00 Temperature 97.8 F Pulse Rate 101 H 99 H 101 H Pulse Rate [ Anterior Bilateral Throughout] Respiratory 22 22 Rate Respiratory Rate [Anterior Bilateral Throughout] Blood Pressure 125/79 104/61 132/76 O2 Sat by Pulse 99 100 Oximetry O2 Sat by Pulse Oximetry [ Assessment] 01/24/17 01/24/17 01/24/17 12:01 13:00 13:37 Temperature Pulse Rate 101 H 94 H Pulse Rate [ Anterior Bilateral Throughout] Respiratory 23 Rate Respiratory Rate [Anterior Bilateral Throughout] Blood Pressure 127/81 122/78 111/75 O2 Sat by Pulse 100 Oximetry O2 Sat by Pulse Oximetry [ Assessment] 01/24/17 14:00 Temperature Pulse Rate 95 H Pulse Rate [ Anterior Bilateral Throughout] Respiratory 21 Rate Respiratory Rate [Anterior Bilateral Throughout] Blood Pressure 121/71 O2 Sat by Pulse 100 Oximetry O2 Sat by Pulse Oximetry [ Assessment] - Integumentary other (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, SQ and fascia.) - Labs 01/22/17 07:20 01/24/17 05:50 Diabetes panel 01/24/17 Range/Units 05:50 Sodium 141 (137-145) mmol/L Potassium 3.8 (3.6-5.0) mmol/L Chloride 102.2 (98-107) mmol/L Carbon Dioxide 25 (22-30) mmol/L BUN 47 H (7-17) mg/dL Creatinine 1.0 (0.7-1.2) mg/dL Glucose 117 H (65-100) mg/dL Calcium 8.9 (8.4-10.2) mg/dL Calcium panel 01/24/17 Range/Units 05:50 Calcium 8.9 (8.4-10.2) mg/dL Phosphorus 2.30 L (2.5-4.5) mg/dL Pituitary panel 01/24/17 Range/Units 05:50 Sodium 141 (137-145) mmol/L Potassium 3.8 (3.6-5.0) mmol/L Chloride 102.2 (98-107) mmol/L Carbon Dioxide 25 (22-30) mmol/L BUN 47 H (7-17) mg/dL Creatinine 1.0 (0.7-1.2) mg/dL Glucose 117 H (65-100) mg/dL Calcium 8.9 (8.4-10.2) mg/dL Adrenal panel 01/24/17 Range/Units 05:50 Sodium 141 (137-145) mmol/L Potassium 3.8 (3.6-5.0) mmol/L Chloride 102.2 (98-107) mmol/L Carbon Dioxide 25 (22-30) mmol/L BUN 47 H (7-17) mg/dL Creatinine 1.0 (0.7-1.2) mg/dL Glucose 117 H (65-100) mg/dL Calcium 8.9 (8.4-10.2) mg/dL
[2017-01-24] MEDS ORDERED: TPN ADULT IV SCH (20:00)
--- NOTE | 2017-01-24 22:38 | Progress Note ---
Assessment and Plan Assessment and plan: 46 years old female with massive stroke, now in vegetative state - Massive stroke with mass effect On vegetative state - Multiple episodes of sepsis with septic shock during her hospitalization Due to aspiration pneumonia/peritonitis from gastric perforation/UTI/candidemia/ decubitus ulcer Currently on meropenem with stop date 02/04 Scheduled for sacral decubitus debridement - Acute hypoxic respiratory failure Status post tracheostomy Unweanable from vent support - Acute renal failure Likely due to ATN Renal function improved significantly, creatinine within normal limits now - Paroxysmal atrial fibrillation with RVR Status post failed cardioversion Rate control Not on anticoagulation due to anemia/thrombocytopenia/massive stroke - Diabetes Accu-Cheks and SSI - Anemia Multifactorial, status post multiple PRBC transfusions Monitoring H&H - Thrombocytopenia Possible secondary to sepsis Now resolved - Electrolyte abnormalities Monitoring and replacing as needed - Severe protein calorie malnutrition Tube feeding per dietitian - Encephalopathy Toxic metabolic initially, underlying conditions treated In vegetative state now - Per family's wishes, full code despite extremely poor prognosis History Interval history: low grade fever, tachycardic no family at bedside Hospitalist Physical - Constitutional Vitals: Temp Pulse Resp BP Pulse Ox 98.6 F 91 H 19 118/67 99 01/24/17 19:00 01/24/17 22:07 01/24/17 22:00 01/24/17 22:07 01/24/17 22:00 General appearance: Present: mild distress - Neck Neck: Present: supple, other (trach). Absent: enlarged thyroid, masses or JVD - Respiratory Respiratory effort: labored, other (on vent) Respiratory: bilateral: diminished, rhonchi, negative: wheezing - Cardiovascular Rhythm: other (tachycardic) - Extremities Extremities: no ischemia, abnormal (contractures UE>LE) - Abdominal General gastrointestinal: soft, non-distended, normal bowel sounds, other (PEG) - Psychiatric Psychiatric: other (unresponsive) - Neurologic Neurologic: other (L upward gaze, R hemiplegia) - Additional findings Additional findings: sacral decubitus Results - Labs CBC & Chem 7: 01/25/17 04:00 01/25/17 04:00 Labs: Laboratory Last Values WBC 9.4 K/mm3 (4.5-11.0) 01/22/17 07:20 RBC 2.75 M/mm3 (3.65-5.03) L 01/22/17 07:20 Hgb 7.5 gm/dl (10.1-14.3) L 01/22/17 07:20 Hct 22.7 % (30.3-42.9) L 01/22/17 07:20 MCV 82 fl (79-97) 01/22/17 07:20 MCH 27 pg (28-32) L 01/22/17 07:20 MCHC 33 % (30-34) 01/22/17 07:20 RDW 17.5 % (13.2-15.2) H 01/22/17 07:20 Plt Count 335 K/mm3 (140-440) 01/22/17 07:20 Lymph % (Auto) 11.7 % (13.4-35.0) L 01/15/17 12:45 Loving % (Auto) 7.8 % (0.0-7.3) H 01/15/17 12:45 Eos % (Auto) 0.1 % (0.0-4.3) 01/15/17 12:45 Baso % (Auto) 0.3 % (0.0-1.8) 01/15/17 12:45 Lymph # 1.9 K/mm3 (1.2-5.4) 01/15/17 12:45 Loving # 1.3 K/mm3 (0.0-0.8) H 01/15/17 12:45 Eos # 0.0 K/mm3 (0.0-0.4) 01/15/17 12:45 Baso # 0.0 K/mm3 (0.0-0.1) 01/15/17 12:45 Add Manual Diff Complete 12/19/16 05:02 Total Counted 100 12/19/16 05:02 Seg Neutrophils % 80.1 % (40.0-70.0) H 01/15/17 12:45 Seg Neuts % (Manual) 64.0 % (40.0-70.0) 12/19/16 05:02 Band Neutrophils % 15.0 % 12/19/16 05:02 Lymphocytes % (Manual) 13.0 % (13.4-35.0) L 12/19/16 05:02 Reactive Lymphs % (Man) 0 % 12/19/16 05:02 Monocytes % (Manual) 7.0 % (0.0-7.3) 12/19/16 05:02 Eosinophils % (Manual) 0 % (0.0-4.3) 12/19/16 05:02 Basophils % (Manual) 1.0 % (0.0-1.8) 12/19/16 05:02 Metamyelocytes % 0 % 12/19/16 05:02 Myelocytes % 0 % 12/19/16 05:02 Promyelocytes % 0 % 12/19/16 05:02 Blast Cells % 0 % 12/19/16 05:02 Nucleated RBC % 1.0 % (0.0-0.9) H 12/19/16 05:02 Seg Neutrophils # 13.0 K/mm3 (1.8-7.7) H 01/15/17 12:45 Seg Neutrophils # Man 12.9 K/mm3 (1.8-7.7) H 12/19/16 05:02 Band Neutrophils # 3.0 K/mm3 12/19/16 05:02 Lymphocytes # (Manual) 2.6 K/mm3 (1.2-5.4) 12/19/16 05:02 Abs React Lymphs (Man) 0.0 K/mm3 12/19/16 05:02 Monocytes # (Manual) 1.4 K/mm3 (0.0-0.8) H 12/19/16 05:02 Eosinophils # (Manual) 0.0 K/mm3 (0.0-0.4) 12/19/16 05:02 Basophils # (Manual) 0.2 K/mm3 (0.0-0.1) H 12/19/16 05:02 Metamyelocytes # 0.0 K/mm3 12/19/16 05:02 Myelocytes # 0.0 K/mm3 12/19/16 05:02 Promyelocytes # 0.0 K/mm3 12/19/16 05:02 Blast Cells # 0.0 K/mm3 12/19/16 05:02 Pathologist Review 09/13/16 04:00 WBC Morphology Not Reportable 12/19/16 05:02 Hypersegmented Neuts Not Reportable 12/19/16 05:02 Hyposegmented Neuts Not Reportable 12/19/16 05:02 Hypogranular Neuts Not Reportable 12/19/16 05:02 Smudge Cells Not Reportable 12/19/16 05:02 Toxic Granulation Not Reportable 12/19/16 05:02 Toxic Vacuolation Not Reportable 12/19/16 05:02 Dohle Bodies Not Reportable 12/19/16 05:02 Pelger-Huet Anomaly Not Reportable 12/19/16 05:02 Jasmina Rods Not Reportable 12/19/16 05:02 Platelet Estimate Consistent w auto 12/19/16 05:02 Clumped Platelets Not Reportable 12/19/16 05:02 Plt Clumps, EDTA Not Reportable 12/19/16 05:02 Large Platelets Not Reportable 12/19/16 05:02 Giant Platelets Not Reportable 12/19/16 05:02 Platelet Satelliting Not Reportable 12/19/16 05:02 Plt Morphology Comment Not Reportable 12/19/16 05:02 RBC Morphology Not Reportable 12/19/16 05:02 Dimorphic RBCs Not Reportable 12/19/16 05:02 Polychromasia Not Reportable 12/19/16 05:02 Hypochromasia Not Reportable 12/19/16 05:02 Poikilocytosis Not Reportable 12/19/16 05:02 Anisocytosis Not Reportable 12/19/16 05:02 Microcytosis Not Reportable 12/19/16 05:02 Macrocytosis Not Reportable 12/19/16 05:02 Spherocytes Not Reportable 12/19/16 05:02 Pappenheimer Bodies Not Reportable 12/19/16 05:02 Sickle Cells Not Reportable 12/19/16 05:02 Target Cells Few 12/19/16 05:02 Tear Drop Cells Not Reportable 12/19/16 05:02 Ovalocytes Not Reportable 12/19/16 05:02 Stomatocytes Rare 12/03/16 04:00 Helmet Cells Not Reportable 12/19/16 05:02 [place] Bodies Not Reportable 12/19/16 05:02 Lebo Rings Not Reportable 12/19/16 05:02 Chuck Cells Not Reportable 12/19/16 05:02 Bite Cells Not Reportable 12/19/16 05:02 Crenated Cell Not Reportable 12/19/16 05:02 Elliptocytes Not Reportable 12/19/16 05:02 Acanthocytes (Spur) Not Reportable 12/19/16 05:02 Rouleaux Not Reportable 12/19/16 05:02 Hemoglobin C Crystals Not Reportable 12/19/16 05:02 Schistocytes Not Reportable 12/19/16 05:02 Malaria parasites Not Reportable 12/19/16 05:02 ESR > 140.0 mm/Hr (0-20) 09/08/16 11:48 Jun Bodies Not Reportable 12/19/16 05:02 Hem Pathologist Commnt No 12/19/16 05:02 PT 15.4 Sec. (12.2-14.9) H 01/13/17 15:50 INR 1.16 (0.87-1.13) H 01/13/17 15:50 APTT 33.0 Sec. (24.2-36.6) 10/09/16 03:45 Thrombin Time 16.8 Sec. (15.1-19.6) 09/03/16 00:10 Fibrinogen 750 mg/dl (211-480) H 09/08/16 11:48 Lupus Anticoagulant see below 09/12/16 09:59 LA PTT Baseline See scanned report 09/12/16 09:59 dRVVT Confirm Interp Positive (Negative) H 09/12/16 09:59 dRVVT Screen 50:50 See scanned report 09/12/16 09:59 dRVVT Mix Interpret See scanned report 09/12/16 09:59 Protein C Antigen 122 % (70-140) 09/08/16 15:35 Free Protein S 97 % normal (50-147) 09/08/16 15:35 Total Protein S 109 % (70-140) 09/08/16 15:35 Antithrombin III Ag 100 % (80-120) 09/08/16 15:35 Heparin Anti-Xa, Unfract Negative (Negative) 09/29/16 13:35 Factor V Activity 182 % (65-150) H 09/08/16 15:35 POC ABG pH 7.436 (7.35-7.45) 01/20/17 12: ABG pH 7.450 pH Units (7.350-7.450) 12/05/16 Unknown POC ABG pCO2 35.3 (35-45) 01/20/17 12: ABG pCO2 29.6 mm Hg 12/05/16 Unknown POC ABG pO2 70 (80-105) L 01/20/17 12:17 ABG pO2 75.2 mm Hg (80.0-90.0) L 12/05/16 Unknown POC ABG HCO3 23.8 01/20/17 12: ABG HCO3 20.1 mmol/L (20.0-26.0) 12/05/16 Unknown POC ABG Total CO2 25 01/20/17 12:17 POC ABG O2 Sat 94 01/20/17 12: ABG O2 Saturation 96.8 % (95.0-99.0) 12/05/16 Unknown ABG O2 Content 9.9 (0.0-44) 12/05/16 Unknown POC ABG Base Excess 0 01/20/17 12: ABG Base Excess -3.4 mmol/L (-2.0-3.0) L 12/05/16 Unknown ABG Hemoglobin 7.4 gm/dl (12.0-16.0) L 12/05/16 Unknown ABG Carboxyhemoglobin 1.8 % (0.0-5.0) 12/05/16 Unknown ABG Methemoglobin 0.6 % (0.0-1.5) 12/05/16 Unknown Oxyhemoglobin 94.5 % (95.0-99.0) L 12/05/16 Unknown FiO2 30 % 01/20/17 12:17 Sodium 141 mmol/L (137-145) 01/24/17 05:50 Potassium 3.8 mmol/L (3.6-5.0) 01/24/17 05:50 Chloride 102.2 mmol/L (98-107) 01/24/17 05:50 Carbon Dioxide 25 mmol/L (22-30) 01/24/17 05:50 Anion Gap 18 mmol/L 01/24/17 05:50 BUN 47 mg/dL (7-17) H 01/24/17 05:50 Creatinine 1.0 mg/dL (0.7-1.2) 01/24/17 05:50 Estimated GFR > 60 ml/min 01/24/17 05:50 BUN/Creatinine Ratio 47 % 01/24/17 05:50 Glucose 117 mg/dL (65-100) H 01/24/17 05:50 POC Glucose 127 (70-105) H 01/24/17 17:08 Osmolality 351 Mosm/kg 09/16/16 11:47 Lactic Acid 2.30 mmol/L (0.7-2.0) H* 01/09/17 08:22 Calcium 8.9 mg/dL (8.4-10.2) 01/24/17 05:50 Phosphorus 2.30 mg/dL (2.5-4.5) L 01/24/17 05:50 Magnesium 1.60 mg/dL (1.7-2.3) L 01/24/17 05:50 Total Bilirubin 0.40 mg/dL (0.1-1.2) 01/17/17 05:30 Direct Bilirubin 0.3 mg/dL (0-0.2) H 10/10/16 05:00 Indirect Bilirubin 0.1 mg/dL 10/10/16 05:00 AST 26 units/L (5-40) 01/17/17 05:30 ALT 35 units/L (7-56) 01/17/17 05:30 Alkaline Phosphatase 254 units/L (35-129) H 01/17/17 05:30 Ammonia 27.0 umol/L (25-60) 09/07/16 08:37 Lactate Dehydrogenase 170 units/L (91-180) 01/13/17 15:50 Total Creatine Kinase 121 units/L (30-135) 09/29/16 20:12 CK-MB (CK-2) < 1.0 ng/mL (0.0-4.0) 09/29/16 20:12 CK-MB (CK-2) Rel Index 0.8 (0-4) 09/29/16 20:12 Troponin T 0.204 ng/mL (0.00-0.029) H* 09/29/16 20:12 C-Reactive Protein 24.70 mg/dL (0.00-1.30) H 01/09/17 13:30 Total Protein 6.6 g/dL (6.3-8.2) 01/17/17 05:30 Albumin 1.3 g/dL (3.9-5) L 01/17/17 05:30 Albumin/Globulin Ratio 0.2 % 01/17/17 05:30 Prealbumin 0.110 g/L (0.200-0.400) L 12/29/16 05:15 Triglycerides 137 mg/dL (2-149) 09/29/16 20:12 Cholesterol 31 mg/dL (50-199) L 09/29/16 20:12 LDL Cholesterol Direct 4 mg/dL (50-130) L 09/29/16 20:12 HDL Cholesterol 3 mg/dL (40-59) L 09/29/16 20:12 Cholesterol/HDL Ratio 10.33 % 09/29/16 20:12 Angiotensin Convert Enz See scanned report 09/08/16 11:48 Renin 0.99 ng/mL/h (0.25-5.82) 10/07/16 10:56 Aldosterone <1 ng/dL () 10/07/16 10:56 Aldosterone/Renin Dir see below 10/07/16 10:56 Serotonin Release Assay See scanned report 09/29/16 13:35 TSH 1.010 mlU/mL (0.270-4.200) 09/07/16 08:37 HCG, Qual Negative (Negative) 09/03/16 00:10 Urine Color Yellow (Yellow) 11/05/16 13:09 Urine Turbidity Clear (Clear) 11/05/16 13:09 Urine pH 9.0 (5.0-7.0) H 11/05/16 13:09 Ur Specific [place] 1.011 (1.003-1.030) 11/05/16 13:09 Urine Protein 100 mg/dl mg/dL (Negative) 11/05/16 13:09 Urine Glucose (UA) Neg mg/dL (Negative) 11/05/16 13:09 Urine Ketones Neg mg/dL (Negative) 11/05/16 13:09 Urine Blood Neg (Negative) 11/05/16 13:09 Urine Nitrite Neg (Negative) 11/05/16 13:09 Urine Bilirubin Neg (Negative) 11/05/16 13:09 Urine Urobilinogen < 2.0 mg/dL (<2.0) 11/05/16 13:09 Ur Leukocyte Esterase Neg (Negative) 11/05/16 13:09 Urine WBC (Auto) 4.0 /HPF (0.0-6.0) 11/05/16 13:09 Urine RBC (Auto) 1.0 /HPF (0.0-6.0) 11/05/16 13:09 U Epithel Cells (Auto) 1.0 /HPF (0-13.0) 10/07/16 18:30 Urine Bacteria (Auto) 4+ /HPF (Negative) 11/05/16 13:09 Urine WBC Clumps 2+ /HPF 09/07/16 02:47 Hyaline Casts 4 /LPF 09/07/16 02:47 Urine Mucus Few /HPF 10/07/16 18:30 Urine Yeast (Budding) 3+ /HPF 10/07/16 18:30 Urine Eosinophils None seen (None Seen) 09/07/16 16:00 Urine Total Volume 950 11/12/16 10:18 Urine Creatinine 19.7 mg/dL (0.1-20.0) 11/12/16 10:18 Height (in) 65.0 inches 11/12/16 10:18 Weight (lb) 181.0 lbs 11/12/16 10:18 Creatinine Clearance 5 11/12/16 10:18 Urine Sodium 36 mEq/L 09/16/16 19:19 Urine Total Protein 16 mg/dL (5-11.8) H 09/16/16 19:19 Fluid Type Pleural 01/13/17 12:10 Fluid Color Yellow 01/13/17 12:10 Fluid Appearance Hazy 01/13/17 12:10 Fluid WBC 182 /mm3 01/13/17 12:10 Fluid RBC 41 /mm3 01/13/17 12:10 Fluid Seg Neutrophils 85.0 % 01/13/17 12:10 Fluid Lymphocytes 8.0 % 01/13/17 12:10 Fluid Reactive Lymphs 0 % 01/13/17 12:10 Fluid Monocytes 6.0 % 01/13/17 12:10 Fluid Eosinophils 1.0 % 01/13/17 12:10 Fluid Basophils 0 % 01/13/17 12:10 Fluid Total Protein 3.0 (15.0-45.0) L 01/13/17 12:10 Fluid LDH 1322 01/13/17 12:10 Fluid Comment Diff performed 01/13/17 12:10 Vancomycin Trough 2.3 ug/mL (5.0-20.0) L 09/21/16 13:00 Random Vancomycin 16.5 ug/mL (0-40.0) 11/28/16 09:45 Urine Opiates Screen Presumptive negative 09/03/16 15:11 Urine Methadone Screen Presumptive positive 09/03/16 15:11 Ur Barbiturates Screen Presumptive positive 09/03/16 15:11 Ur Phencyclidine Scrn Presumptive negative 09/03/16 15:11 Ur Amphetamines Screen Presumptive negative 09/03/16 15:11 U Benzodiazepines Scrn Presumptive negative 09/03/16 15:11 Urine Cocaine Screen Presumptive negative 09/03/16 15:11 U Marijuana (THC) Screen Presumptive positive 09/03/16 15:11 Drugs of Abuse Note Disclamer 09/03/16 15:11 Rheumatoid Factor 24 IU/ml (0-13) H 09/08/16 11:48 SAHIL Screen Negative (Negative) 09/07/16 09:20 Proteinase 3 (PR3) Ab <1.0 AI (<1.0) 09/07/16 09:20 Myeloperoxidase Ab <1.0 AI (<1.0) 09/07/16 09:20 Sjogren's Antibody <1.0 AI (<1.0) 09/08/16 15:35 Scl-70 Scleroderma Ab <1.0 AI (<1.0) 09/08/16 15:35 Centromere B Antibody <1.0 AI (<1.0) 09/08/16 12:02 Heparin-induced Plt Ab Negative (Negative) 09/29/16 13:35 UF Heparin High Dose 11 % Release 09/29/16 13:35 SUDHIR UFH Low Dose 0.1 6 % Release 09/29/16 13:35 SUDHIR UFH Low Dose 0.5 8 % Release 09/29/16 13:35 Cardiolipid IgG Ab <14 GPL (<=14) 09/12/16 09:59 Cardiolipid IgA Ab <11 APL (<=11) 09/12/16 09:59 Cardiolipid IgM Ab <12 MPL (<=12) 09/12/16 09:59 Complement C3 148 mg/dL (90-180) 09/07/16 09:20 Complement C4 58 mg/dL (16-47) H 09/07/16 09:20 RPR Nonreactive (Nonreactive) 09/08/16 11:48 Hepatitis A IgM Ab Non-reactive (NonReactive) 09/24/16 14:40 Hep Bs Antigen Non-reactive (Negative) 09/24/16 14:40 Hep B Core IgM Ab Non-reactive (NonReactive) 09/24/16 14:40 Hepatitis C Antibody Non-reactive (NonReactive) 09/24/16 14:40 HIV 1&2 Antibody Rapid Non react (Non React) 09/08/16 11:48 HIV P24 Antigen Non react (Non React) 09/08/16 11:48 Miscellaneous Test Flexitest 1 H 01/09/17 18:45 Blood Type A POSITIVE 01/08/17 10:37 Antibody Screen Negative 01/08/17 10:37 DELORIS Antibody Screen Negative 11/24/16 11:20 Crossmatch See Detail 01/08/17 10:37
[2017-01-25] MEDS: LOPRESSOR PO SCH ×3 (00:10→12:55)
[2017-01-25] MEDS: DUONEB *Not for PRN Use IH SCH ×4 (01:35→19:45)
[2017-01-25 04:46] LABS: Basophils # (Auto) 0.1 K/mm3 (0.0-0.1); Basophils % (Auto) 0.7 % (0.0-1.8); Eosinophils # (Auto) 0.1 K/mm3 (0.0-0.4); Eosinophils % (Auto) 1.4 % (0.0-4.3); Hematocrit 20.9 % (30.3-42.9); Hemoglobin 6.7 gm/dl (10.1-14.3); Lymphocytes # (Auto) 1.9 K/mm3 (1.2-5.4); Lymphocytes % (Auto) 20.4 % (13.4-35.0); Mean Corpuscular HGB Conc 32 % (30-34); Mean Corpuscular Hemoglobin 27 pg (28-32); Mean Corpuscular Volume 84 fl (79-97); Monocytes % (Auto) 10.1 % (0.0-7.3); Platelet Count 282 K/mm3 (140-440); Red Blood Count 2.49 M/mm3 (3.65-5.03); Red Cell Distribution Width 18.8 % (13.2-15.2)
[2017-01-25 05:01] LABS: Calcium 9.4 mg/dL (8.4-10.2)
[2017-01-25] MEDS: APRESOLINE PO SCH ×2 (06:00→22:23)
[2017-01-25] MEDS: HumuLIN R SUB-Q SCH (06:00)
[2017-01-25] MEDS: REGLAN IV SCH ×2 (06:07→22:22)
[2017-01-25] MEDS: LASIX IV SCH (06:09)
--- NOTE | 2017-01-25 08:28 | Progress Note ---
Assessment and Plan Assessment * Oliguric acute kidney injury secondary to ATN on CKD - baseline SCr 1.7mg/dL --24h urine CrCl 5ml/min Sep 24 * Acute CVA - left MCA with midline shift * Atrial fibrillation w/ RVR * Enteric fistula * Acute hypoxic respiratory failure * Sacral decubitus ulcer s/p debridement, wound vac in place * s/p Cardiac arrest * Hx of GI bleed * Left renal artery stenosis * Anemia * Hx of hypertension * s/p Candidemia * metabolic acidosis Plan: * Continue HD MWF * UF as tolerated * Adjust K bath with dialysis * Transfuse pRBC per primary team prn. Epogen 20k TIW * Dose medications for renal function * Avoid potential nephrotoxins * Rate control per cardiology * Vent management per pulm/CCM * Pressors prn for MAP>65 Subjective Date of service: 01/25/17 Principal diagnosis: Acute resp failure on MVS; S/P Acute CVA; Acute Encephalopathy; JUANITA Interval history: new events from last pm noted Objective - Exam Narrative Exam: Gen. appearance: Patient lying in bed, no apparent distress, 4. restraints HEENT: Normocephalic, atraumatic, pupils equally round and reactive to light, extraocular movement intact, and no sclericterus,. No JVD or thyromegaly or nodule,neck supple, no carotid bruit ,mucous membranes moist, unable to examine oral cavity Heart: S1, S2, regular rate and rhythm Lungs: Clear to auscultation bilaterally, breathing comfortable Abdomen: Positive bowel sounds, nontender, nondistended, no organomegaly Extremity: No edema, cyanosis, clubbing Skin: No rash, nodules, warm, dry Neuro: Difficult to assess, facial droop, moves all 4 extremities - Vital Signs Vital signs: Vital Signs - 12hr 01/24/17 01/24/17 01/24/17 20:51 21:00 22:00 Temperature Pulse Rate 92 H 91 H Pulse Rate [ 92 H Anterior Bilateral Throughout] Respiratory 25 H 19 Rate Respiratory 17 Rate [Anterior Bilateral Throughout] Blood Pressure 125/78 118/67 O2 Sat by Pulse 100 99 Oximetry O2 Sat by Pulse Oximetry [ Assessment] 01/24/17 01/24/17 01/24/17 22:07 23:00 23:35 Temperature Pulse Rate 91 H 91 H 92 H Pulse Rate [ Anterior Bilateral Throughout] Respiratory 21 19 Rate Respiratory Rate [Anterior Bilateral Throughout] Blood Pressure 118/67 116/65 119/69 O2 Sat by Pulse 100 100 Oximetry O2 Sat by Pulse Oximetry [ Assessment] 01/25/17 01/25/17 01/25/17 00:00 01:00 01:35 Temperature 97.5 F L Pulse Rate 92 H 92 H Pulse Rate [ 90 Anterior Bilateral Throughout] Respiratory 18 18 Rate Respiratory 13 Rate [Anterior Bilateral Throughout] Blood Pressure 116/68 117/71 O2 Sat by Pulse 98 100 Oximetry O2 Sat by Pulse Oximetry [ Assessment] 01/25/17 01/25/17 01/25/17 01:50 02:00 02:55 Temperature Pulse Rate 93 H Pulse Rate [ 93 H Anterior Bilateral Throughout] Respiratory 18 Rate Respiratory 14 Rate [Anterior Bilateral Throughout] Blood Pressure 120/70 O2 Sat by Pulse 100 Oximetry O2 Sat by Pulse 99 Oximetry [ Assessment] 01/25/17 01/25/17 01/25/17 03:00 04:00 04:23 Temperature 98.9 F Pulse Rate 92 H 97 H 96 H Pulse Rate [ Anterior Bilateral Throughout] Respiratory 19 21 Rate Respiratory Rate [Anterior Bilateral Throughout] Blood Pressure 109/65 114/66 115/69 O2 Sat by Pulse 100 100 100 Oximetry O2 Sat by Pulse Oximetry [ Assessment] 01/25/17 01/25/17 01/25/17 05:00 06:00 06:11 Temperature Pulse Rate 96 H 99 H 98 H Pulse Rate [ Anterior Bilateral Throughout] Respiratory 19 22 Rate Respiratory Rate [Anterior Bilateral Throughout] Blood Pressure 114/71 122/72 122/72 O2 Sat by Pulse 100 100 Oximetry O2 Sat by Pulse Oximetry [ Assessment] 01/25/17 01/25/17 01/25/17 07:00 07:13 07:17 Temperature Pulse Rate 90 89 90 Pulse Rate [ Anterior Bilateral Throughout] Respiratory 21 26 H Rate Respiratory Rate [Anterior Bilateral Throughout] Blood Pressure 109/61 111/65 111/65 O2 Sat by Pulse 99 100 99 Oximetry O2 Sat by Pulse Oximetry [ Assessment] 01/25/17 01/25/17 01/25/17 07:19 07:26 08:00 Temperature Pulse Rate 94 H Pulse Rate [ 91 H 91 H Anterior Bilateral Throughout] Respiratory 35 H Rate Respiratory 30 H 31 H Rate [Anterior Bilateral Throughout] Blood Pressure 121/74 O2 Sat by Pulse Oximetry O2 Sat by Pulse Oximetry [ Assessment] - Lab 01/25/17 04:00 01/25/17 04:00 Most recent lab results ABG pH 7.450 pH Units (7.350-7.450) 12/05/16 Unknown ABG pCO2 29.6 mm Hg 12/05/16 Unknown ABG pO2 75.2 mm Hg (80.0-90.0) L 12/05/16 Unknown ABG HCO3 20.1 mmol/L (20.0-26.0) 12/05/16 Unknown ABG O2 Saturation 96.8 % (95.0-99.0) 12/05/16 Unknown Calcium 9.4 mg/dL (8.4-10.2) 01/25/17 04:00 Phosphorus 3.90 mg/dL (2.5-4.5) D 01/25/17 04:00 Magnesium 2.00 mg/dL (1.7-2.3) 01/25/17 04:00 Urine Creatinine 19.7 mg/dL (0.1-20.0) 11/12/16 10:18 Urine Sodium 36 mEq/L 09/16/16 19:19 Urine Total Protein 16 mg/dL (5-11.8) H 09/16/16 19:19
--- NOTE | 2017-01-25 08:57 | Progress Note ---
Assessment and Plan Patient is 46-year-old woman with a history of hypertension, diabetes mellitus, asthma, hyperlipidemia, chronic kidney disease and anxiety, who was brought in by family because she couldn't get her words out, her face was also twisted, she was admitted for acute CVA and accelerated hypertension, she had a hx of poor adherence with her medications, and uncontrolled htn. Patient's SBP on admission was noted be greater than 260. TPA was started but this it was discontinued after 5 minutes because her blood pressure became uncontrolled. The TPA was not initiated again because the patient was outside the TPA window. Patient has had a prolonged hospital stay complicated with recurrent severe sepsis. Patient with most recent event also status post cardiac arrest on , with CPR and ROSC. Acute on chronic Hypoxemic Respiratory Failure ( not tolerating spontaneous breathing trials) Sepsis -recurrent s/p tracheostomy Hypertension Atrial Fibrillation with RVR Acute encephalopathy s/p CVA Oropharyngeal dysphagia Enterococcal bacteremia Sacral Decubitus Ulcer- unstageable s/p debridement Anemia Obesity JUANITA now on hemodialysis Enteric Fistula - VAP bundle addressed -CXR prn, s/p thoracentesis. Plan to get CXR and IR for pleural pig tail for drainage. - continue NGT to LIS -Continue promotility agent--reglan - continue wound care per WCT - Vasopressor if MAP falls < 65mmHg - keep on with daily PSV trials and / or T-piece as tolerated - continue TPN administration (continue TPN; NPO except for meds) - continue airway clearance and secretion management - continue to wean FiO2 for sats > 94% - continue antihypertensives and monitor hemodynamics closely - continue HD/UF per nephrology - continue to follow electrolytes and correct as necessary - continue GI & VTE prophylaxis -per Cardiology--failed cardioversion, not a candidate fro full anticoagulation. No further recommendations for management of atrial fibrillation. Rate control as tolerated by hemodynamics For further interventions per surgical service, as it pertains to the replacement of the PEG tube-Surgical service states that the patient is too high risk to attempt PEG placement. They will reassess the patient and make a determination if they can attempt PEG placement at this time. Transfuse 1 unit PRBC to keep HgH>7g/dL .....she remains critically ill on life sustaining interventions including MVS and at risk for further deterioration including ...mcc prognosis remains poor - Patient Problems (1) Acute respiratory failure with hypoxia Current Visit: Yes Status: Acute (2) Acute blood loss anemia Current Visit: Yes Status: Resolved (3) Acute CVA (cerebrovascular accident) Current Visit: Yes Status: Acute (4) Chronic renal insufficiency Current Visit: Yes Status: Acute (5) Uncontrolled hypertension Current Visit: Yes Status: Acute (6) Leukocytosis (leucocytosis) Current Visit: Yes Status: Acute Qualifiers: Leukocytosis type: leukemoid reaction Qualified Code(s): D72.823 - Leukemoid reaction (7) Dislodged gastrostomy tube Current Visit: Yes Status: Acute (8) Fungemia Current Visit: Yes Status: Resolved (9) Cardiopulmonary arrest with successful resuscitation Current Visit: Yes Status: Acute Subjective Date of service: 01/25/17 Principal diagnosis: Acute resp failure on MVS; S/P Acute CVA; Acute Encephalopathy; JUANITA Interval history: Patient is seen today for: Acute resp failure on MVS; S/P Acute CVA; Acute Encephalopathy; JUANITA Seen and examined at bedside; 24hour events reviewed; nursing and respiratory care staff consulted; no adverse overnight events reported to me; she remains critically ill , not tolerating SBT.Continues to require PS 20 to generate tidal volumes 280 to 300 Per RN on going vomiting. Vitals, labs, medications, chart reviewed. Discussed on interdisciplinary rounds Objective - Exam Narrative Exam: General appearance: somnolent non communicative, on the vent via trach in mild resp distress, not following commands Eyes: anicteric sclera, moist conjunctivae; PERRLA HENT: Atraumatic; oropharynx limited; Normal external ears. +NGT with greenish secretion Neck: +trach in place; supple, no thyromegaly or lymphadenopathy Lungs: brit coarse BS CV: rrr Abdomen: Soft, non-tender, +old PEG site no drainage. +iliostomy. Right sided Surgical site x 2 with ostomy bag draining small amount yellowish secretion Extremities: +peripheral edema Skin: sacral area wounds - Sacrum wound measuring 9x11cm. Necrotic tissue noted on the wound edges and in the wound bed Neuro: alert non verbal on the vent. Lines: PICC / gutierrez Vital Signs - 12hr 01/24/17 01/24/17 01/24/17 21:00 22:00 22:07 Temperature Pulse Rate 92 H 91 H 91 H Pulse Rate [ Anterior Bilateral Throughout] Respiratory 25 H 19 Rate Respiratory Rate [Anterior Bilateral Throughout] Blood Pressure 125/78 118/67 118/67 O2 Sat by Pulse 100 99 Oximetry O2 Sat by Pulse Oximetry [ Assessment] 01/24/17 01/24/17 01/25/17 23:00 23:35 00:00 Temperature 97.5 F L Pulse Rate 91 H 92 H 92 H Pulse Rate [ Anterior Bilateral Throughout] Respiratory 21 19 18 Rate Respiratory Rate [Anterior Bilateral Throughout] Blood Pressure 116/65 119/69 116/68 O2 Sat by Pulse 100 100 98 Oximetry O2 Sat by Pulse Oximetry [ Assessment] 01/25/17 01/25/17 01/25/17 01:00 01:35 01:50 Temperature Pulse Rate 92 H Pulse Rate [ 90 93 H Anterior Bilateral Throughout] Respiratory 18 Rate Respiratory 13 14 Rate [Anterior Bilateral Throughout] Blood Pressure 117/71 O2 Sat by Pulse 100 Oximetry O2 Sat by Pulse Oximetry [ Assessment] 01/25/17 01/25/17 01/25/17 02:00 02:55 03:00 Temperature Pulse Rate 93 H 92 H Pulse Rate [ Anterior Bilateral Throughout] Respiratory 18 19 Rate Respiratory Rate [Anterior Bilateral Throughout] Blood Pressure 120/70 109/65 O2 Sat by Pulse 100 100 Oximetry O2 Sat by Pulse 99 Oximetry [ Assessment] 01/25/17 01/25/17 01/25/17 04:00 04:23 05:00 Temperature 98.9 F Pulse Rate 97 H 96 H 96 H Pulse Rate [ Anterior Bilateral Throughout] Respiratory 21 19 Rate Respiratory Rate [Anterior Bilateral Throughout] Blood Pressure 114/66 115/69 114/71 O2 Sat by Pulse 100 100 100 Oximetry O2 Sat by Pulse Oximetry [ Assessment] 01/25/17 01/25/17 01/25/17 06:00 06:11 07:00 Temperature Pulse Rate 99 H 98 H 90 Pulse Rate [ Anterior Bilateral Throughout] Respiratory 22 21 Rate Respiratory Rate [Anterior Bilateral Throughout] Blood Pressure 122/72 122/72 109/61 O2 Sat by Pulse 100 99 Oximetry O2 Sat by Pulse Oximetry [ Assessment] 01/25/17 01/25/17 01/25/17 07:13 07:17 07:19 Temperature Pulse Rate 89 90 Pulse Rate [ 91 H Anterior Bilateral Throughout] Respiratory 26 H Rate Respiratory 30 H Rate [Anterior Bilateral Throughout] Blood Pressure 111/65 111/65 O2 Sat by Pulse 100 99 Oximetry O2 Sat by Pulse Oximetry [ Assessment] 01/25/17 01/25/17 07:26 08:00 Temperature Pulse Rate 94 H Pulse Rate [ 91 H Anterior Bilateral Throughout] Respiratory 35 H Rate Respiratory 31 H Rate [Anterior Bilateral Throughout] Blood Pressure 121/74 O2 Sat by Pulse Oximetry O2 Sat by Pulse Oximetry [ Assessment] Constitutional: appears uncomfortable, other (not tracking) Eyes: non-icteric, other (tracheostomy tube in midline of neck) ENT: oropharynx moist, oropharyngeal exudate pre Neck: supple, no lymphadenopathy, no JVD, other (no thyromegaly) Effort: mildly labored Ascultation: Bilateral: clear, diminished breath sounds (bases), rales, rhonchi (and referred upper airway sounds) Percussion: Bilateral: not dull, dull (bases) Cardiovascular: regular rate and rhythm, other (no rubs / murmurs) Gastrointestinal: hypoactive bowel sounds, soft, non-tender, non-distended, other (RLQ & LUQ stomas with colostomy bags) Integumentary: decubitus ulcer (sacral; stage 4 s/p surgical debridement), other (no rash; no cellulitis; poor turgor) Extremities: no cyanosis, pulses normal, no ischemia or petechiae, edema (1+ bilaterally) Neurologic: pupils equal and round, unable to assess, other (encephalopathic) Psychiatric: other (unable to assess) CBC and BMP: 01/25/17 04:00 01/25/17 04:00 ABG, PT/INR, D-dimer: ABG POC ABG pH 7.436 (7.35-7.45) 01/20/17 12: ABG pH 7.450 pH Units (7.350-7.450) 12/05/16 Unknown POC ABG pCO2 35.3 (35-45) 01/20/17 12: ABG pCO2 29.6 mm Hg 12/05/16 Unknown POC ABG pO2 70 (80-105) L 01/20/17 12: ABG pO2 75.2 mm Hg (80.0-90.0) L 12/05/16 Unknown POC ABG HCO3 23.8 01/20/17 12: POC ABG Total CO2 25 01/20/17 12:17 POC ABG O2 Sat 94 01/20/17 12:17 ABG O2 Saturation 96.8 % (95.0-99.0) 12/05/16 Unknown PT/INR, D-dimer PT 15.4 Sec. (12.2-14.9) H 01/13/17 15:50 INR 1.16 (0.87-1.13) H 01/13/17 15:50 Abnormal lab findings: Abnormal Labs 09/03/16 09/03/16 09/03/16 00:03 00:10 00:10 WBC 13.9 H RBC 5.95 H Hgb Hct 44.0 H MCV 74 L MCH 22 L MCHC RDW 17.5 H Plt Count Lymph % (Auto) Stanton % (Auto) Lymph # Stanton # Baso # Seg Neutrophils % Seg Neuts % (Manual) Lymphocytes % (Manual) 54.0 H Monocytes % (Manual) Eosinophils % (Manual) Basophils % (Manual) Nucleated RBC % Seg Neutrophils # Seg Neutrophils # Man Lymphocytes # (Manual) 7.5 H Monocytes # (Manual) Eosinophils # (Manual) Basophils # (Manual) PT INR Fibrinogen dRVVT Confirm Interp Factor V Activity POC ABG pH POC ABG pCO2 POC ABG pO2 ABG pO2 ABG HCO3 ABG Base Excess ABG Hemoglobin Oxyhemoglobin Sodium Potassium 2.8 L* Chloride Carbon Dioxide 21 L BUN Creatinine 1.7 H Glucose 159 H POC Glucose 177 H Lactic Acid Calcium Phosphorus Magnesium Direct Bilirubin AST ALT Alkaline Phosphatase Lactate Dehydrogenase Troponin T C-Reactive Protein Total Protein Albumin Prealbumin Triglycerides Cholesterol LDL Cholesterol Direct HDL Cholesterol Urine pH Urine WBC (Auto) Urine Creatinine Urine Total Protein Fluid Total Protein Vancomycin Trough Rheumatoid Factor Complement C4 Miscellaneous Test Crossmatch 09/03/16 09/03/16 09/03/16 12:12 15:07 16:20 WBC RBC Hgb Hct MCV MCH MCHC RDW Plt Count Lymph % (Auto) Stanton % (Auto) Lymph # Stanton # Baso # Seg Neutrophils % Seg Neuts % (Manual) Lymphocytes % (Manual) Monocytes % (Manual) Eosinophils % (Manual) Basophils % (Manual) Nucleated RBC % Seg Neutrophils # Seg Neutrophils # Man Lymphocytes # (Manual) Monocytes # (Manual) Eosinophils # (Manual) Basophils # (Manual) PT INR Fibrinogen dRVVT Confirm Interp Factor V Activity POC ABG pH 7.452 H POC ABG pCO2 POC ABG pO2 ABG pO2 ABG HCO3 ABG Base Excess ABG Hemoglobin Oxyhemoglobin Sodium Potassium Chloride Carbon Dioxide BUN Creatinine Glucose POC Glucose 178 H Lactic Acid Calcium Phosphorus 2.20 L Magnesium 1.60 L Direct Bilirubin AST ALT Alkaline Phosphatase Lactate Dehydrogenase Troponin T C-Reactive Protein Total Protein Albumin Prealbumin Triglycerides Cholesterol LDL Cholesterol Direct HDL Cholesterol Urine pH Urine WBC (Auto) Urine Creatinine Urine Total Protein Fluid Total Protein Vancomycin Trough Rheumatoid Factor Complement C4 Miscellaneous Test Crossmatch 09/03/16 09/03/16 09/03/16 17:57 17:58 23:50 WBC RBC Hgb Hct MCV MCH MCHC RDW Plt Count Lymph % (Auto) Stanton % (Auto) Lymph # Stanton # Baso # Seg Neutrophils % Seg Neuts % (Manual) Lymphocytes % (Manual) Monocytes % (Manual) Eosinophils % (Manual) Basophils % (Manual) Nucleated RBC % Seg Neutrophils # Seg Neutrophils # Man Lymphocytes # (Manual) Monocytes # (Manual) Eosinophils # (Manual) Basophils # (Manual) PT INR Fibrinogen dRVVT Confirm Interp Factor V Activity POC ABG pH POC ABG pCO2 POC ABG pO2 ABG pO2 ABG HCO3 ABG Base Excess ABG Hemoglobin Oxyhemoglobin Sodium Potassium Chloride Carbon Dioxide BUN Creatinine Glucose POC Glucose 162 H 145 H Lactic Acid Calcium Phosphorus 2.30 L Magnesium Direct Bilirubin AST ALT Alkaline Phosphatase Lactate Dehydrogenase Troponin T C-Reactive Protein Total Protein Albumin Prealbumin Triglycerides Cholesterol LDL Cholesterol Direct HDL Cholesterol Urine pH Urine WBC (Auto) Urine Creatinine Urine Total Protein Fluid Total Protein Vancomycin Trough Rheumatoid Factor Complement C4 Miscellaneous Test Crossmatch 09/04/16 09/04/16 09/04/16 03:31 03:31 05:42 WBC RBC Hgb 9.7 L D Hct MCV 72 L MCH 23 L MCHC RDW 17.5 H Plt Count Lymph % (Auto) 11.1 L Stanton % (Auto) Lymph # Stanton # Baso # Seg Neutrophils % 84.3 H Seg Neuts % (Manual) Lymphocytes % (Manual) Monocytes % (Manual) Eosinophils % (Manual) Basophils % (Manual) Nucleated RBC % Seg Neutrophils # 8.9 H Seg Neutrophils # Man Lymphocytes # (Manual) Monocytes # (Manual) Eosinophils # (Manual) Basophils # (Manual) PT INR Fibrinogen dRVVT Confirm Interp Factor V Activity POC ABG pH POC ABG pCO2 POC ABG pO2 ABG pO2 ABG HCO3 ABG Base Excess ABG Hemoglobin Oxyhemoglobin Sodium 135 L Potassium 2.9 L* Chloride 97.2 L Carbon Dioxide 19 L BUN Creatinine 1.7 H Glucose 170 H POC Glucose 152 H Lactic Acid Calcium Phosphorus Magnesium Direct Bilirubin AST ALT Alkaline Phosphatase Lactate Dehydrogenase Troponin T C-Reactive Protein Total Protein Albumin Prealbumin Triglycerides 160 H Cholesterol LDL Cholesterol Direct HDL Cholesterol 31 L Urine pH Urine WBC (Auto) Urine Creatinine Urine Total Protein Fluid Total Protein Vancomycin Trough Rheumatoid Factor Complement C4 Miscellaneous Test Crossmatch 09/04/16 09/04/16 09/04/16 11:34 17:46 23:29 WBC RBC Hgb Hct MCV MCH MCHC RDW Plt Count Lymph % (Auto) Stanton % (Auto) Lymph # Stanton # Baso # Seg Neutrophils % Seg Neuts % (Manual) Lymphocytes % (Manual) Monocytes % (Manual) Eosinophils % (Manual) Basophils % (Manual) Nucleated RBC % Seg Neutrophils # Seg Neutrophils # Man Lymphocytes # (Manual) Monocytes # (Manual) Eosinophils # (Manual) Basophils # (Manual) PT INR Fibrinogen dRVVT Confirm Interp Factor V Activity POC ABG pH POC ABG pCO2 POC ABG pO2 ABG pO2 ABG HCO3 ABG Base Excess ABG Hemoglobin Oxyhemoglobin Sodium Potassium Chloride Carbon Dioxide BUN Creatinine Glucose POC Glucose 165 H 210 H 139 H Lactic Acid Calcium Phosphorus Magnesium Direct Bilirubin AST ALT Alkaline Phosphatase Lactate Dehydrogenase Troponin T C-Reactive Protein Total Protein Albumin Prealbumin Triglycerides Cholesterol LDL Cholesterol Direct HDL Cholesterol Urine pH Urine WBC (Auto) Urine Creatinine Urine Total Protein Fluid Total Protein Vancomycin Trough Rheumatoid Factor Complement C4 Miscellaneous Test Crossmatch 09/05/16 09/05/16 09/05/16 04:05 04:05 05:38 WBC RBC Hgb Hct MCV 76 L D MCH 23 L MCHC RDW 17.8 H Plt Count Lymph % (Auto) Stanton % (Auto) Lymph # Stanton # Baso # Seg Neutrophils % Seg Neuts % (Manual) Lymphocytes % (Manual) Monocytes % (Manual) Eosinophils % (Manual) Basophils % (Manual) Nucleated RBC % Seg Neutrophils # Seg Neutrophils # Man Lymphocytes # (Manual) Monocytes # (Manual) Eosinophils # (Manual) Basophils # (Manual) PT INR Fibrinogen dRVVT Confirm Interp Factor V Activity POC ABG pH POC ABG pCO2 POC ABG pO2 ABG pO2 ABG HCO3 ABG Base Excess ABG Hemoglobin Oxyhemoglobin Sodium 134 L Potassium Chloride Carbon Dioxide 18 L BUN Creatinine 1.8 H Glucose 192 H POC Glucose 175 H Lactic Acid Calcium Phosphorus Magnesium Direct Bilirubin AST ALT Alkaline Phosphatase Lactate Dehydrogenase Troponin T C-Reactive Protein Total Protein Albumin Prealbumin Triglycerides Cholesterol LDL Cholesterol Direct HDL Cholesterol Urine pH Urine WBC (Auto) Urine Creatinine Urine Total Protein Fluid Total Protein Vancomycin Trough Rheumatoid Factor Complement C4 Miscellaneous Test Crossmatch 09/05/16 09/05/16 09/05/16 11:38 17:48 23:22 WBC RBC Hgb Hct MCV MCH MCHC RDW Plt Count Lymph % (Auto) Stanton % (Auto) Lymph # Stanton # Baso # Seg Neutrophils % Seg Neuts % (Manual) Lymphocytes % (Manual) Monocytes % (Manual) Eosinophils % (Manual) Basophils % (Manual) Nucleated RBC % Seg Neutrophils # Seg Neutrophils # Man Lymphocytes # (Manual) Monocytes # (Manual) Eosinophils # (Manual) Basophils # (Manual) PT INR Fibrinogen dRVVT Confirm Interp Factor V Activity POC ABG pH POC ABG pCO2 POC ABG pO2 ABG pO2 ABG HCO3 ABG Base Excess ABG Hemoglobin Oxyhemoglobin Sodium Potassium Chloride Carbon Dioxide BUN Creatinine Glucose POC Glucose 164 H 186 H 195 H Lactic Acid Calcium Phosphorus Magnesium Direct Bilirubin AST ALT Alkaline Phosphatase Lactate Dehydrogenase Troponin T C-Reactive Protein Total Protein Albumin Prealbumin Triglycerides Cholesterol LDL Cholesterol Direct HDL Cholesterol Urine pH Urine WBC (Auto) Urine Creatinine Urine Total Protein Fluid Total Protein Vancomycin Trough Rheumatoid Factor Complement C4 Miscellaneous Test Crossmatch 09/06/16 09/06/16 09/06/16 04:12 05:59 07:32 WBC RBC Hgb Hct MCV MCH MCHC RDW Plt Count Lymph % (Auto) Stanton % (Auto) Lymph # Stanton # Baso # Seg Neutrophils % Seg Neuts % (Manual) Lymphocytes % (Manual) Monocytes % (Manual) Eosinophils % (Manual) Basophils % (Manual) Nucleated RBC % Seg Neutrophils # Seg Neutrophils # Man Lymphocytes # (Manual) Monocytes # (Manual) Eosinophils # (Manual) Basophils # (Manual) PT INR Fibrinogen dRVVT Confirm Interp Factor V Activity POC ABG pH 7.514 H POC ABG pCO2 29.1 L POC ABG pO2 72 L ABG pO2 ABG HCO3 ABG Base Excess ABG Hemoglobin Oxyhemoglobin Sodium 133 L Potassium 3.4 L Chloride 94.9 L Carbon Dioxide 19 L BUN 30 H Creatinine 2.1 H Glucose 139 H POC Glucose 146 H Lactic Acid Calcium Phosphorus Magnesium Direct Bilirubin AST ALT Alkaline Phosphatase Lactate Dehydrogenase Troponin T C-Reactive Protein Total Protein Albumin Prealbumin Triglycerides Cholesterol LDL Cholesterol Direct HDL Cholesterol Urine pH Urine WBC (Auto) Urine Creatinine Urine Total Protein Fluid Total Protein Vancomycin Trough Rheumatoid Factor Complement C4 Miscellaneous Test Crossmatch 09/06/16 09/06/16 09/06/16 11:57 17:58 19:02 WBC RBC Hgb Hct MCV MCH MCHC RDW Plt Count Lymph % (Auto) Stanton % (Auto) Lymph # Stanton # Baso # Seg Neutrophils % Seg Neuts % (Manual) Lymphocytes % (Manual) Monocytes % (Manual) Eosinophils % (Manual) Basophils % (Manual) Nucleated RBC % Seg Neutrophils # Seg Neutrophils # Man Lymphocytes # (Manual) Monocytes # (Manual) Eosinophils # (Manual) Basophils # (Manual) PT INR Fibrinogen dRVVT Confirm Interp Factor V Activity POC ABG pH 7.465 H POC ABG pCO2 32.0 L POC ABG pO2 ABG pO2 ABG HCO3 ABG Base Excess ABG Hemoglobin Oxyhemoglobin Sodium Potassium Chloride Carbon Dioxide BUN Creatinine Glucose POC Glucose 165 H 160 H Lactic Acid Calcium Phosphorus Magnesium Direct Bilirubin AST ALT Alkaline Phosphatase Lactate Dehydrogenase Troponin T C-Reactive Protein Total Protein Albumin Prealbumin Triglycerides Cholesterol LDL Cholesterol Direct HDL Cholesterol Urine pH Urine WBC (Auto) Urine Creatinine Urine Total Protein Fluid Total Protein Vancomycin Trough Rheumatoid Factor Complement C4 Miscellaneous Test Crossmatch 09/06/16 09/07/16 09/07/16 23:45 02:47 02:47 WBC RBC Hgb Hct MCV MCH MCHC RDW Plt Count Lymph % (Auto) Stanton % (Auto) Lymph # Stanton # Baso # Seg Neutrophils % Seg Neuts % (Manual) Lymphocytes % (Manual) Monocytes % (Manual) Eosinophils % (Manual) Basophils % (Manual) Nucleated RBC % Seg Neutrophils # Seg Neutrophils # Man Lymphocytes # (Manual) Monocytes # (Manual) Eosinophils # (Manual) Basophils # (Manual) PT INR Fibrinogen dRVVT Confirm Interp Factor V Activity POC ABG pH POC ABG pCO2 POC ABG pO2 ABG pO2 ABG HCO3 ABG Base Excess ABG Hemoglobin Oxyhemoglobin Sodium Potassium Chloride Carbon Dioxide BUN Creatinine Glucose POC Glucose 204 H Lactic Acid Calcium Phosphorus Magnesium Direct Bilirubin AST ALT Alkaline Phosphatase Lactate Dehydrogenase Troponin T C-Reactive Protein Total Protein Albumin Prealbumin Triglycerides Cholesterol LDL Cholesterol Direct HDL Cholesterol Urine pH Urine WBC (Auto) 68.0 H Urine Creatinine 106.1 H Urine Total Protein Fluid Total Protein Vancomycin Trough Rheumatoid Factor Complement C4 Miscellaneous Test Crossmatch 09/07/16 09/07/16 09/07/16 04:50 06:19 06:39 WBC RBC Hgb Hct MCV MCH MCHC RDW Plt Count Lymph % (Auto) Stanton % (Auto) Lymph # Stanton # Baso # Seg Neutrophils % Seg Neuts % (Manual) Lymphocytes % (Manual) Monocytes % (Manual) Eosinophils % (Manual) Basophils % (Manual) Nucleated RBC % Seg Neutrophils # Seg Neutrophils # Man Lymphocytes # (Manual) Monocytes # (Manual) Eosinophils # (Manual) Basophils # (Manual) PT INR Fibrinogen dRVVT Confirm Interp Factor V Activity POC ABG pH 7.457 H POC ABG pCO2 32.1 L POC ABG pO2 76 L ABG pO2 ABG HCO3 ABG Base Excess ABG Hemoglobin Oxyhemoglobin Sodium 132 L Potassium Chloride 94.7 L Carbon Dioxide BUN 53 H Creatinine 2.9 H Glucose 151 H POC Glucose 149 H Lactic Acid Calcium Phosphorus Magnesium Direct Bilirubin AST ALT Alkaline Phosphatase Lactate Dehydrogenase Troponin T C-Reactive Protein Total Protein Albumin Prealbumin Triglycerides Cholesterol LDL Cholesterol Direct HDL Cholesterol Urine pH Urine WBC (Auto) Urine Creatinine Urine Total Protein Fluid Total Protein Vancomycin Trough Rheumatoid Factor Complement C4 Miscellaneous Test Crossmatch 09/07/16 09/07/16 09/07/16 09:20 11:43 11:43 WBC 19.4 H RBC Hgb 8.3 L Hct 26.4 L D MCV 72 L D MCH 22 L MCHC RDW 17.9 H Plt Count Lymph % (Auto) 8.5 L Stanton % (Auto) Lymph # Stanton # 1.0 H Baso # Seg Neutrophils % 85.8 H Seg Neuts % (Manual) Lymphocytes % (Manual) Monocytes % (Manual) Eosinophils % (Manual) Basophils % (Manual) Nucleated RBC % Seg Neutrophils # 16.6 H Seg Neutrophils # Man Lymphocytes # (Manual) Monocytes # (Manual) Eosinophils # (Manual) Basophils # (Manual) PT INR Fibrinogen dRVVT Confirm Interp Factor V Activity POC ABG pH POC ABG pCO2 POC ABG pO2 ABG pO2 ABG HCO3 ABG Base Excess ABG Hemoglobin Oxyhemoglobin Sodium 134 L Potassium Chloride 97.2 L Carbon Dioxide 20 L BUN 58 H Creatinine 2.9 H Glucose 147 H POC Glucose Lactic Acid Calcium Phosphorus 2.40 L Magnesium 2.40 H Direct Bilirubin AST ALT Alkaline Phosphatase Lactate Dehydrogenase Troponin T C-Reactive Protein Total Protein 5.8 L Albumin 2.2 L Prealbumin Triglycerides Cholesterol LDL Cholesterol Direct HDL Cholesterol Urine pH Urine WBC (Auto) Urine Creatinine Urine Total Protein Fluid Total Protein Vancomycin Trough Rheumatoid Factor Complement C4 58 H Miscellaneous Test Crossmatch 09/07/16 09/07/16 09/07/16 11:50 16:00 17:31 WBC RBC Hgb Hct MCV MCH MCHC RDW Plt Count Lymph % (Auto) Stanton % (Auto) Lymph # Stanton # Baso # Seg Neutrophils % Seg Neuts % (Manual) Lymphocytes % (Manual) Monocytes % (Manual) Eosinophils % (Manual) Basophils % (Manual) Nucleated RBC % Seg Neutrophils # Seg Neutrophils # Man Lymphocytes # (Manual) Monocytes # (Manual) Eosinophils # (Manual) Basophils # (Manual) PT INR Fibrinogen dRVVT Confirm Interp Factor V Activity POC ABG pH POC ABG pCO2 POC ABG pO2 158 H ABG pO2 ABG HCO3 ABG Base Excess ABG Hemoglobin Oxyhemoglobin Sodium Potassium Chloride Carbon Dioxide BUN Creatinine Glucose POC Glucose 175 H Lactic Acid Calcium Phosphorus Magnesium Direct Bilirubin AST ALT Alkaline Phosphatase Lactate Dehydrogenase Troponin T C-Reactive Protein Total Protein Albumin Prealbumin Triglycerides Cholesterol LDL Cholesterol Direct HDL Cholesterol Urine pH Urine WBC (Auto) Urine Creatinine 66.3 H Urine Total Protein Fluid Total Protein Vancomycin Trough Rheumatoid Factor Complement C4 Miscellaneous Test Crossmatch 09/07/16 09/08/16 09/08/16 23:50 05:46 06:18 WBC 17.8 H RBC 3.58 L Hgb 8.1 L Hct 25.5 L MCV 71 L MCH 23 L MCHC RDW 18.4 H Plt Count Lymph % (Auto) Stanton % (Auto) Lymph # Stanton # Baso # Seg Neutrophils % Seg Neuts % (Manual) 92.0 H Lymphocytes % (Manual) 6.0 L Monocytes % (Manual) Eosinophils % (Manual) Basophils % (Manual) Nucleated RBC % Seg Neutrophils # Seg Neutrophils # Man 16.4 H Lymphocytes # (Manual) 1.1 L Monocytes # (Manual) Eosinophils # (Manual) Basophils # (Manual) PT INR Fibrinogen dRVVT Confirm Interp Factor V Activity POC ABG pH POC ABG pCO2 34.3 L POC ABG pO2 71 L ABG pO2 ABG HCO3 ABG Base Excess ABG Hemoglobin Oxyhemoglobin Sodium Potassium Chloride Carbon Dioxide BUN Creatinine Glucose POC Glucose 216 H Lactic Acid Calcium Phosphorus Magnesium Direct Bilirubin AST ALT Alkaline Phosphatase Lactate Dehydrogenase Troponin T C-Reactive Protein Total Protein Albumin Prealbumin Triglycerides Cholesterol LDL Cholesterol Direct HDL Cholesterol Urine pH Urine WBC (Auto) Urine Creatinine Urine Total Protein Fluid Total Protein Vancomycin Trough Rheumatoid Factor Complement C4 Miscellaneous Test Crossmatch 09/08/16 09/08/16 09/08/16 06:18 06:51 10:55 WBC RBC Hgb Hct MCV MCH MCHC RDW Plt Count Lymph % (Auto) [place] % (Auto) Lymph # [place] # Baso # Seg Neutrophils % Seg Neuts % (Manual) Lymphocytes % (Manual) Monocytes % (Manual) Eosinophils % (Manual) Basophils % (Manual) Nucleated RBC % Seg Neutrophils # Seg Neutrophils # Man Lymphocytes # (Manual) Monocytes # (Manual) Eosinophils # (Manual) Basophils # (Manual) PT INR Fibrinogen dRVVT Confirm Interp Factor V Activity POC ABG pH POC ABG pCO2 POC ABG pO2 ABG pO2 ABG HCO3 ABG Base Excess ABG Hemoglobin Oxyhemoglobin Sodium 133 L Potassium Chloride 96.9 L Carbon Dioxide 20 L BUN 63 H Creatinine 2.7 H Glucose 195 H POC Glucose 204 H 169 H Lactic Acid Calcium Phosphorus Magnesium Direct Bilirubin AST ALT Alkaline Phosphatase Lactate Dehydrogenase Troponin T C-Reactive Protein Total Protein Albumin Prealbumin Triglycerides Cholesterol LDL Cholesterol Direct HDL Cholesterol Urine pH Urine WBC (Auto) Urine Creatinine Urine Total Protein Fluid Total Protein Vancomycin Trough Rheumatoid Factor Complement C4 Miscellaneous Test Crossmatch 09/08/16 09/08/16 09/08/16 11:48 11:48 11:48 WBC RBC Hgb Hct MCV MCH MCHC RDW Plt Count Lymph % (Auto) [place] % (Auto) Lymph # [place] # Baso # Seg Neutrophils % Seg Neuts % (Manual) Lymphocytes % (Manual) Monocytes % (Manual) Eosinophils % (Manual) Basophils % (Manual) Nucleated RBC % Seg Neutrophils # Seg Neutrophils # Man Lymphocytes # (Manual) Monocytes # (Manual) Eosinophils # (Manual) Basophils # (Manual) PT INR Fibrinogen 750 H dRVVT Confirm Interp Factor V Activity POC ABG pH POC ABG pCO2 POC ABG pO2 ABG pO2 ABG HCO3 ABG Base Excess ABG Hemoglobin Oxyhemoglobin Sodium Potassium Chloride Carbon Dioxide BUN Creatinine Glucose POC Glucose Lactic Acid Calcium Phosphorus Magnesium Direct Bilirubin AST ALT Alkaline Phosphatase Lactate Dehydrogenase Troponin T C-Reactive Protein 15.70 H Total Protein Albumin Prealbumin Triglycerides Cholesterol LDL Cholesterol Direct HDL Cholesterol Urine pH Urine WBC (Auto) Urine Creatinine Urine Total Protein Fluid Total Protein Vancomycin Trough Rheumatoid Factor 24 H Complement C4 Miscellaneous Test Crossmatch 09/08/16 09/08/16 09/09/16 15:35 18:25 00:24 WBC RBC Hgb Hct MCV MCH MCHC RDW Plt Count Lymph % (Auto) [place] % (Auto) Lymph # [place] # Baso # Seg Neutrophils % Seg Neuts % (Manual) Lymphocytes % (Manual) Monocytes % (Manual) Eosinophils % (Manual) Basophils % (Manual) Nucleated RBC % Seg Neutrophils # Seg Neutrophils # Man Lymphocytes # (Manual) Monocytes # (Manual) Eosinophils # (Manual) Basophils # (Manual) PT INR Fibrinogen dRVVT Confirm Interp Factor V Activity 182 H POC ABG pH POC ABG pCO2 POC ABG pO2 ABG pO2 ABG HCO3 ABG Base Excess ABG Hemoglobin Oxyhemoglobin Sodium Potassium Chloride Carbon Dioxide BUN Creatinine Glucose POC Glucose 184 H 216 H Lactic Acid Calcium Phosphorus Magnesium Direct Bilirubin AST ALT Alkaline Phosphatase Lactate Dehydrogenase Troponin T C-Reactive Protein Total Protein Albumin Prealbumin Triglycerides Cholesterol LDL Cholesterol Direct HDL Cholesterol Urine pH Urine WBC (Auto) Urine Creatinine Urine Total Protein Fluid Total Protein Vancomycin Trough Rheumatoid Factor Complement C4 Miscellaneous Test Crossmatch 09/09/16 09/09/16 09/09/16 03:00 03:00 04:04 WBC 27.9 H RBC Hgb 8.7 L Hct 28.1 L MCV 72 L MCH 22 L MCHC RDW 18.4 H Plt Count 485 H Lymph % (Auto) [place] % (Auto) Lymph # [place] # Baso # Seg Neutrophils % Seg Neuts % (Manual) 77.0 H Lymphocytes % (Manual) 9.0 L Monocytes % (Manual) Eosinophils % (Manual) Basophils % (Manual) Nucleated RBC % Seg Neutrophils # Seg Neutrophils # Man 21.5 H Lymphocytes # (Manual) Monocytes # (Manual) 2.0 H Eosinophils # (Manual) Basophils # (Manual) PT INR Fibrinogen dRVVT Confirm Interp Factor V Activity POC ABG pH POC ABG pCO2 POC ABG pO2 121 H ABG pO2 ABG HCO3 ABG Base Excess ABG Hemoglobin Oxyhemoglobin Sodium 135 L Potassium Chloride 96.3 L Carbon Dioxide 21 L BUN 83 H Creatinine 3.0 H Glucose 135 H POC Glucose Lactic Acid Calcium Phosphorus Magnesium Direct Bilirubin AST ALT Alkaline Phosphatase Lactate Dehydrogenase Troponin T C-Reactive Protein Total Protein Albumin Prealbumin Triglycerides Cholesterol LDL Cholesterol Direct HDL Cholesterol Urine pH Urine WBC (Auto) Urine Creatinine Urine Total Protein Fluid Total Protein Vancomycin Trough Rheumatoid Factor Complement C4 Miscellaneous Test Crossmatch 09/09/16 09/09/16 09/09/16 05:41 11:55 14:13 WBC RBC Hgb Hct MCV MCH MCHC RDW Plt Count Lymph % (Auto) [place] % (Auto) Lymph # [place] # Baso # Seg Neutrophils % Seg Neuts % (Manual) Lymphocytes % (Manual) Monocytes % (Manual) Eosinophils % (Manual) Basophils % (Manual) Nucleated RBC % Seg Neutrophils # Seg Neutrophils # Man Lymphocytes # (Manual) Monocytes # (Manual) Eosinophils # (Manual) Basophils # (Manual) PT INR Fibrinogen dRVVT Confirm Interp Factor V Activity POC ABG pH POC ABG pCO2 POC ABG pO2 ABG pO2 ABG HCO3 ABG Base Excess ABG Hemoglobin Oxyhemoglobin Sodium Potassium Chloride Carbon Dioxide BUN Creatinine Glucose POC Glucose 155 H 186 H Lactic Acid Calcium Phosphorus Magnesium Direct Bilirubin AST ALT Alkaline Phosphatase Lactate Dehydrogenase Troponin T C-Reactive Protein Total Protein Albumin Prealbumin Triglycerides Cholesterol LDL Cholesterol Direct HDL Cholesterol Urine pH Urine WBC (Auto) 25.0 H Urine Creatinine Urine Total Protein Fluid Total Protein Vancomycin Trough Rheumatoid Factor Complement C4 Miscellaneous Test Crossmatch 09/09/16 09/09/16 09/10/16 17:33 23:13 05:09 WBC RBC Hgb Hct MCV MCH MCHC RDW Plt Count Lymph % (Auto) [place] % (Auto) Lymph # [place] # Baso # Seg Neutrophils % Seg Neuts % (Manual) Lymphocytes % (Manual) Monocytes % (Manual) Eosinophils % (Manual) Basophils % (Manual) Nucleated RBC % Seg Neutrophils # Seg Neutrophils # Man Lymphocytes # (Manual) Monocytes # (Manual) Eosinophils # (Manual) Basophils # (Manual) PT INR Fibrinogen dRVVT Confirm Interp Factor V Activity POC ABG pH POC ABG pCO2 POC ABG pO2 74 L ABG pO2 ABG HCO3 ABG Base Excess ABG Hemoglobin Oxyhemoglobin Sodium Potassium Chloride Carbon Dioxide BUN Creatinine Glucose POC Glucose 211 H 215 H Lactic Acid Calcium Phosphorus Magnesium Direct Bilirubin AST ALT Alkaline Phosphatase Lactate Dehydrogenase Troponin T C-Reactive Protein Total Protein Albumin Prealbumin Triglycerides Cholesterol LDL Cholesterol Direct HDL Cholesterol Urine pH Urine WBC (Auto) Urine Creatinine Urine Total Protein Fluid Total Protein Vancomycin Trough Rheumatoid Factor Complement C4 Miscellaneous Test Crossmatch 09/10/16 09/10/16 09/10/16 05:17 05:17 11:31 WBC 15.8 H RBC 3.25 L Hgb 7.3 L Hct 22.9 L MCV 71 L MCH 23 L MCHC RDW 18.4 H Plt Count Lymph % (Auto) [place] % (Auto) Lymph # [place] # Baso # Seg Neutrophils % Seg Neuts % (Manual) 91.0 H Lymphocytes % (Manual) 4.0 L Monocytes % (Manual) Eosinophils % (Manual) Basophils % (Manual) Nucleated RBC % Seg Neutrophils # Seg Neutrophils # Man 14.4 H Lymphocytes # (Manual) 0.6 L Monocytes # (Manual) Eosinophils # (Manual) Basophils # (Manual) PT INR Fibrinogen dRVVT Confirm Interp Factor V Activity POC ABG pH POC ABG pCO2 POC ABG pO2 ABG pO2 ABG HCO3 ABG Base Excess ABG Hemoglobin Oxyhemoglobin Sodium Potassium Chloride Carbon Dioxide 21 L BUN 93 H Creatinine 2.9 H Glucose 146 H POC Glucose 188 H Lactic Acid Calcium 8.1 L Phosphorus Magnesium Direct Bilirubin AST ALT Alkaline Phosphatase Lactate Dehydrogenase Troponin T C-Reactive Protein Total Protein Albumin Prealbumin Triglycerides Cholesterol LDL Cholesterol Direct HDL Cholesterol Urine pH Urine WBC (Auto) Urine Creatinine Urine Total Protein Fluid Total Protein Vancomycin Trough Rheumatoid Factor Complement C4 Miscellaneous Test Crossmatch 09/10/16 09/10/16 09/10/16 13:17 17:20 23:32 WBC RBC Hgb Hct MCV MCH MCHC RDW Plt Count Lymph % (Auto) [place] % (Auto) Lymph # [place] # Baso # Seg Neutrophils % Seg Neuts % (Manual) Lymphocytes % (Manual) Monocytes % (Manual) Eosinophils % (Manual) Basophils % (Manual) Nucleated RBC % Seg Neutrophils # Seg Neutrophils # Man Lymphocytes # (Manual) Monocytes # (Manual) Eosinophils # (Manual) Basophils # (Manual) PT INR Fibrinogen dRVVT Confirm Interp Factor V Activity POC ABG pH POC ABG pCO2 POC ABG pO2 ABG pO2 ABG HCO3 ABG Base Excess ABG Hemoglobin Oxyhemoglobin Sodium Potassium Chloride Carbon Dioxide BUN Creatinine Glucose POC Glucose 199 H 186 H Lactic Acid Calcium Phosphorus Magnesium Direct Bilirubin AST ALT Alkaline Phosphatase Lactate Dehydrogenase Troponin T C-Reactive Protein Total Protein Albumin Prealbumin Triglycerides Cholesterol LDL Cholesterol Direct HDL Cholesterol Urine pH Urine WBC (Auto) Urine Creatinine Urine Total Protein Fluid Total Protein Vancomycin Trough Rheumatoid Factor Complement C4 Miscellaneous Test Crossmatch See Detail 09/11/16 09/11/16 09/11/16 05:10 05:10 05:17 WBC 28.4 H RBC Hgb 9.2 L Hct 29.3 L D MCV 73 L MCH 23 L MCHC RDW 18.9 H Plt Count 452 H Lymph % (Auto) [place] % (Auto) Lymph # [place] # Baso # Seg Neutrophils % Seg Neuts % (Manual) 89.5 H Lymphocytes % (Manual) 2.0 L Monocytes % (Manual) Eosinophils % (Manual) Basophils % (Manual) Nucleated RBC % Seg Neutrophils # Seg Neutrophils # Man 25.4 H Lymphocytes # (Manual) 0.6 L Monocytes # (Manual) 1.3 H Eosinophils # (Manual) Basophils # (Manual) PT INR Fibrinogen dRVVT Confirm Interp Factor V Activity POC ABG pH POC ABG pCO2 POC ABG pO2 ABG pO2 ABG HCO3 ABG Base Excess ABG Hemoglobin Oxyhemoglobin Sodium 136 L Potassium Chloride Carbon Dioxide 18 L BUN 107 H Creatinine 2.6 H Glucose 187 H POC Glucose 230 H Lactic Acid Calcium 8.3 L Phosphorus Magnesium Direct Bilirubin AST ALT Alkaline Phosphatase Lactate Dehydrogenase Troponin T C-Reactive Protein Total Protein Albumin Prealbumin Triglycerides Cholesterol LDL Cholesterol Direct HDL Cholesterol Urine pH Urine WBC (Auto) Urine Creatinine Urine Total Protein Fluid Total Protein Vancomycin Trough Rheumatoid Factor Complement C4 Miscellaneous Test Crossmatch 09/11/16 09/11/16 09/11/16 05:55 12:02 17:32 WBC RBC Hgb Hct MCV MCH MCHC RDW Plt Count Lymph % (Auto) [place] % (Auto) Lymph # [place] # Baso # Seg Neutrophils % Seg Neuts % (Manual) Lymphocytes % (Manual) Monocytes % (Manual) Eosinophils % (Manual) Basophils % (Manual) Nucleated RBC % Seg Neutrophils # Seg Neutrophils # Man Lymphocytes # (Manual) Monocytes # (Manual) Eosinophils # (Manual) Basophils # (Manual) PT INR Fibrinogen dRVVT Confirm Interp Factor V Activity POC ABG pH POC ABG pCO2 33.8 L POC ABG pO2 ABG pO2 ABG HCO3 ABG Base Excess ABG Hemoglobin Oxyhemoglobin Sodium Potassium Chloride Carbon Dioxide BUN Creatinine Glucose POC Glucose 191 H 239 H Lactic Acid Calcium Phosphorus Magnesium Direct Bilirubin AST ALT Alkaline Phosphatase Lactate Dehydrogenase Troponin T C-Reactive Protein Total Protein Albumin Prealbumin Triglycerides Cholesterol LDL Cholesterol Direct HDL Cholesterol Urine pH Urine WBC (Auto) Urine Creatinine Urine Total Protein Fluid Total Protein Vancomycin Trough Rheumatoid Factor Complement C4 Miscellaneous Test Crossmatch 09/11/16 09/12/16 09/12/16 23:52 05:09 05:32 WBC RBC Hgb Hct MCV MCH MCHC RDW Plt Count Lymph % (Auto) [place] % (Auto) Lymph # [place] # Baso # Seg Neutrophils % Seg Neuts % (Manual) Lymphocytes % (Manual) Monocytes % (Manual) Eosinophils % (Manual) Basophils % (Manual) Nucleated RBC % Seg Neutrophils # Seg Neutrophils # Man Lymphocytes # (Manual) Monocytes # (Manual) Eosinophils # (Manual) Basophils # (Manual) PT INR Fibrinogen dRVVT Confirm Interp Factor V Activity POC ABG pH POC ABG pCO2 34.6 L POC ABG pO2 ABG pO2 ABG HCO3 ABG Base Excess ABG Hemoglobin Oxyhemoglobin Sodium Potassium Chloride Carbon Dioxide BUN Creatinine Glucose POC Glucose 265 H 184 H Lactic Acid Calcium Phosphorus Magnesium Direct Bilirubin AST ALT Alkaline Phosphatase Lactate Dehydrogenase Troponin T C-Reactive Protein Total Protein Albumin Prealbumin Triglycerides Cholesterol LDL Cholesterol Direct HDL Cholesterol Urine pH Urine WBC (Auto) Urine Creatinine Urine Total Protein Fluid Total Protein Vancomycin Trough Rheumatoid Factor Complement C4 Miscellaneous Test Crossmatch 09/12/16 09/12/16 09/12/16 06:45 06:45 07:22 WBC 31.7 H RBC 3.54 L Hgb 8.3 L Hct 25.9 L MCV 73 L MCH 23 L MCHC RDW 18.9 H Plt Count Lymph % (Auto) [place] % (Auto) Lymph # [place] # Baso # Seg Neutrophils % Seg Neuts % (Manual) 88.5 H Lymphocytes % (Manual) 4.5 L Monocytes % (Manual) Eosinophils % (Manual) Basophils % (Manual) Nucleated RBC % Seg Neutrophils # Seg Neutrophils # Man 28.1 H Lymphocytes # (Manual) Monocytes # (Manual) 1.0 H Eosinophils # (Manual) Basophils # (Manual) PT INR Fibrinogen dRVVT Confirm Interp Factor V Activity POC ABG pH POC ABG pCO2 POC ABG pO2 ABG pO2 ABG HCO3 ABG Base Excess ABG Hemoglobin Oxyhemoglobin Sodium Potassium Chloride Carbon Dioxide 20 L BUN 115 H Creatinine 2.7 H Glucose 165 H POC Glucose Lactic Acid Calcium 8.0 L Phosphorus Magnesium Direct Bilirubin AST ALT Alkaline Phosphatase Lactate Dehydrogenase Troponin T C-Reactive Protein Total Protein Albumin Prealbumin Triglycerides 217 H Cholesterol LDL Cholesterol Direct HDL Cholesterol Urine pH Urine WBC (Auto) Urine Creatinine Urine Total Protein Fluid Total Protein Vancomycin Trough Rheumatoid Factor Complement C4 Miscellaneous Test Crossmatch 09/12/16 09/12/16 09/12/16 07:22 09:59 12:21 WBC RBC Hgb Hct MCV MCH MCHC RDW Plt Count Lymph % (Auto) [place] % (Auto) Lymph # [place] # Baso # Seg Neutrophils % Seg Neuts % (Manual) Lymphocytes % (Manual) Monocytes % (Manual) Eosinophils % (Manual) Basophils % (Manual) Nucleated RBC % Seg Neutrophils # Seg Neutrophils # Man Lymphocytes # (Manual) Monocytes # (Manual) Eosinophils # (Manual) Basophils # (Manual) PT INR Fibrinogen dRVVT Confirm Interp Positive H Factor V Activity POC ABG pH POC ABG pCO2 POC ABG pO2 ABG pO2 ABG HCO3 ABG Base Excess ABG Hemoglobin Oxyhemoglobin Sodium Potassium Chloride Carbon Dioxide BUN Creatinine Glucose POC Glucose 224 H Lactic Acid Calcium Phosphorus Magnesium Direct Bilirubin AST ALT Alkaline Phosphatase Lactate Dehydrogenase Troponin T C-Reactive Protein 1.70 H Total Protein Albumin Prealbumin Triglycerides Cholesterol LDL Cholesterol Direct HDL Cholesterol Urine pH Urine WBC (Auto) Urine Creatinine Urine Total Protein Fluid Total Protein Vancomycin Trough Rheumatoid Factor Complement C4 Miscellaneous Test Crossmatch 09/12/16 09/12/16 09/13/16 16:51 23:28 04:00 WBC 45.0 H* RBC Hgb 9.4 L Hct MCV 75 L MCH 23 L MCHC RDW 19.0 H Plt Count 470 H Lymph % (Auto) [place] % (Auto) Lymph # [place] # Baso # Seg Neutrophils % Seg Neuts % (Manual) 89.0 H Lymphocytes % (Manual) 5.0 L Monocytes % (Manual) Eosinophils % (Manual) Basophils % (Manual) Nucleated RBC % Seg Neutrophils # Seg Neutrophils # Man 40.1 H Lymphocytes # (Manual) Monocytes # (Manual) Eosinophils # (Manual) Basophils # (Manual) PT INR Fibrinogen dRVVT Confirm Interp Factor V Activity POC ABG pH POC ABG pCO2 POC ABG pO2 ABG pO2 ABG HCO3 ABG Base Excess ABG Hemoglobin Oxyhemoglobin Sodium Potassium Chloride Carbon Dioxide BUN Creatinine Glucose POC Glucose 169 H 150 H Lactic Acid Calcium Phosphorus Magnesium Direct Bilirubin AST ALT Alkaline Phosphatase Lactate Dehydrogenase Troponin T C-Reactive Protein Total Protein Albumin Prealbumin Triglycerides Cholesterol LDL Cholesterol Direct HDL Cholesterol Urine pH Urine WBC (Auto) Urine Creatinine Urine Total Protein Fluid Total Protein Vancomycin Trough Rheumatoid Factor Complement C4 Miscellaneous Test Crossmatch 09/13/16 09/13/16 09/13/16 04:00 11:26 17:31 WBC RBC Hgb Hct MCV MCH MCHC RDW Plt Count Lymph % (Auto) [place] % (Auto) Lymph # [place] # Baso # Seg Neutrophils % Seg Neuts % (Manual) Lymphocytes % (Manual) Monocytes % (Manual) Eosinophils % (Manual) Basophils % (Manual) Nucleated RBC % Seg Neutrophils # Seg Neutrophils # Man Lymphocytes # (Manual) Monocytes # (Manual) Eosinophils # (Manual) Basophils # (Manual) PT INR Fibrinogen dRVVT Confirm Interp Factor V Activity POC ABG pH POC ABG pCO2 POC ABG pO2 ABG pO2 ABG HCO3 ABG Base Excess ABG Hemoglobin Oxyhemoglobin Sodium Potassium Chloride Carbon Dioxide 20 L BUN 116 H Creatinine 3.0 H Glucose 172 H POC Glucose 140 H 183 H Lactic Acid Calcium Phosphorus Magnesium Direct Bilirubin AST ALT Alkaline Phosphatase Lactate Dehydrogenase Troponin T C-Reactive Protein Total Protein 6.2 L Albumin 2.9 L Prealbumin Triglycerides Cholesterol LDL Cholesterol Direct HDL Cholesterol Urine pH Urine WBC (Auto) Urine Creatinine Urine Total Protein Fluid Total Protein Vancomycin Trough Rheumatoid Factor Complement C4 Miscellaneous Test Crossmatch 09/13/16 09/14/16 09/14/16 23:23 04:06 04:07 WBC 29.4 H RBC Hgb 8.9 L Hct 27.3 L MCV 75 L MCH 24 L MCHC RDW 19.1 H Plt Count Lymph % (Auto) [place] % (Auto) Lymph # [place] # Baso # Seg Neutrophils % Seg Neuts % (Manual) 84.0 H Lymphocytes % (Manual) 6.0 L Monocytes % (Manual) 9.0 H Eosinophils % (Manual) Basophils % (Manual) Nucleated RBC % Seg Neutrophils # Seg Neutrophils # Man 24.7 H Lymphocytes # (Manual) Monocytes # (Manual) 2.6 H Eosinophils # (Manual) Basophils # (Manual) PT INR Fibrinogen dRVVT Confirm Interp Factor V Activity POC ABG pH 7.342 L POC ABG pCO2 POC ABG pO2 116 H ABG pO2 ABG HCO3 ABG Base Excess ABG Hemoglobin Oxyhemoglobin Sodium Potassium Chloride Carbon Dioxide BUN Creatinine Glucose POC Glucose 154 H Lactic Acid Calcium Phosphorus Magnesium Direct Bilirubin AST ALT Alkaline Phosphatase Lactate Dehydrogenase Troponin T C-Reactive Protein Total Protein Albumin Prealbumin Triglycerides Cholesterol LDL Cholesterol Direct HDL Cholesterol Urine pH Urine WBC (Auto) Urine Creatinine Urine Total Protein Fluid Total Protein Vancomycin Trough Rheumatoid Factor Complement C4 Miscellaneous Test Crossmatch 09/14/16 09/14/16 09/14/16 04:07 05:29 12:19 WBC RBC Hgb Hct MCV MCH MCHC RDW Plt Count Lymph % (Auto) [place] % (Auto) Lymph # [place] # Baso # Seg Neutrophils % Seg Neuts % (Manual) Lymphocytes % (Manual) Monocytes % (Manual) Eosinophils % (Manual) Basophils % (Manual) Nucleated RBC % Seg Neutrophils # Seg Neutrophils # Man Lymphocytes # (Manual) Monocytes # (Manual) Eosinophils # (Manual) Basophils # (Manual) PT INR Fibrinogen dRVVT Confirm Interp Factor V Activity POC ABG pH POC ABG pCO2 POC ABG pO2 ABG pO2 ABG HCO3 ABG Base Excess ABG Hemoglobin Oxyhemoglobin Sodium 136 L Potassium Chloride Carbon Dioxide 18 L BUN 121 H Creatinine 2.8 H Glucose 214 H POC Glucose 239 H 181 H Lactic Acid Calcium Phosphorus Magnesium Direct Bilirubin AST ALT Alkaline Phosphatase Lactate Dehydrogenase Troponin T C-Reactive Protein Total Protein Albumin Prealbumin Triglycerides Cholesterol LDL Cholesterol Direct HDL Cholesterol Urine pH Urine WBC (Auto) Urine Creatinine Urine Total Protein Fluid Total Protein Vancomycin Trough Rheumatoid Factor Complement C4 Miscellaneous Test Crossmatch 09/14/16 09/14/16 09/15/16 18:12 23:37 05:00 WBC 26.1 H RBC 3.05 L Hgb 7.2 L Hct 22.9 L MCV 75 L MCH 24 L MCHC RDW 19.0 H Plt Count Lymph % (Auto) [place] % (Auto) Lymph # [place] # Baso # Seg Neutrophils % Seg Neuts % (Manual) Lymphocytes % (Manual) Monocytes % (Manual) Eosinophils % (Manual) Basophils % (Manual) Nucleated RBC % Seg Neutrophils # Seg Neutrophils # Man Lymphocytes # (Manual) Monocytes # (Manual) Eosinophils # (Manual) Basophils # (Manual) PT INR Fibrinogen dRVVT Confirm Interp Factor V Activity POC ABG pH POC ABG pCO2 POC ABG pO2 ABG pO2 ABG HCO3 ABG Base Excess ABG Hemoglobin Oxyhemoglobin Sodium Potassium Chloride Carbon Dioxide BUN Creatinine Glucose POC Glucose 266 H 154 H Lactic Acid Calcium Phosphorus Magnesium Direct Bilirubin AST ALT Alkaline Phosphatase Lactate Dehydrogenase Troponin T C-Reactive Protein Total Protein Albumin Prealbumin Triglycerides Cholesterol LDL Cholesterol Direct HDL Cholesterol Urine pH Urine WBC (Auto) Urine Creatinine Urine Total Protein Fluid Total Protein Vancomycin Trough Rheumatoid Factor Complement C4 Miscellaneous Test Crossmatch 09/15/16 09/15/16 09/15/16 05:00 05:17 12:45 WBC RBC Hgb Hct MCV MCH MCHC RDW Plt Count Lymph % (Auto) [place] % (Auto) Lymph # [place] # Baso # Seg Neutrophils % Seg Neuts % (Manual) Lymphocytes % (Manual) Monocytes % (Manual) Eosinophils % (Manual) Basophils % (Manual) Nucleated RBC % Seg Neutrophils # Seg Neutrophils # Man Lymphocytes # (Manual) Monocytes # (Manual) Eosinophils # (Manual) Basophils # (Manual) PT INR Fibrinogen dRVVT Confirm Interp Factor V Activity POC ABG pH POC ABG pCO2 POC ABG pO2 ABG pO2 ABG HCO3 ABG Base Excess ABG Hemoglobin Oxyhemoglobin Sodium Potassium 5.2 H Chloride Carbon Dioxide 18 L BUN 139 H Creatinine 3.7 H Glucose 227 H POC Glucose 226 H 244 H Lactic Acid Calcium 8.3 L Phosphorus Magnesium Direct Bilirubin AST ALT Alkaline Phosphatase Lactate Dehydrogenase Troponin T C-Reactive Protein Total Protein Albumin Prealbumin Triglycerides Cholesterol LDL Cholesterol Direct HDL Cholesterol Urine pH Urine WBC (Auto) Urine Creatinine Urine Total Protein Fluid Total Protein Vancomycin Trough Rheumatoid Factor Complement C4 Miscellaneous Test Crossmatch 09/15/16 09/15/16 09/15/16 14:32 17:33 23:35 WBC RBC Hgb Hct MCV MCH MCHC RDW Plt Count Lymph % (Auto) [place] % (Auto) Lymph # [place] # Baso # Seg Neutrophils % Seg Neuts % (Manual) Lymphocytes % (Manual) Monocytes % (Manual) Eosinophils % (Manual) Basophils % (Manual) Nucleated RBC % Seg Neutrophils # Seg Neutrophils # Man Lymphocytes # (Manual) Monocytes # (Manual) Eosinophils # (Manual) Basophils # (Manual) PT INR Fibrinogen dRVVT Confirm Interp Factor V Activity POC ABG pH POC ABG pCO2 27.7 L POC ABG pO2 120 H ABG pO2 ABG HCO3 ABG Base Excess ABG Hemoglobin Oxyhemoglobin Sodium Potassium Chloride Carbon Dioxide BUN Creatinine Glucose POC Glucose 232 H 167 H Lactic Acid Calcium Phosphorus Magnesium Direct Bilirubin AST ALT Alkaline Phosphatase Lactate Dehydrogenase Troponin T C-Reactive Protein Total Protein Albumin Prealbumin Triglycerides Cholesterol LDL Cholesterol Direct HDL Cholesterol Urine pH Urine WBC (Auto) Urine Creatinine Urine Total Protein Fluid Total Protein Vancomycin Trough Rheumatoid Factor Complement C4 Miscellaneous Test Crossmatch 09/16/16 09/16/16 09/16/16 03:58 10:27 10:27 WBC 19.0 H RBC 2.77 L Hgb 6.5 L Hct 20.9 L MCV 76 L MCH 23 L MCHC RDW 19.3 H Plt Count Lymph % (Auto) 11.0 L [place] % (Auto) Lymph # [place] # 1.1 H Baso # Seg Neutrophils % 82.5 H Seg Neuts % (Manual) Lymphocytes % (Manual) Monocytes % (Manual) Eosinophils % (Manual) Basophils % (Manual) Nucleated RBC % Seg Neutrophils # 15.7 H Seg Neutrophils # Man Lymphocytes # (Manual) Monocytes # (Manual) Eosinophils # (Manual) Basophils # (Manual) PT INR Fibrinogen dRVVT Confirm Interp Factor V Activity POC ABG pH POC ABG pCO2 POC ABG pO2 ABG pO2 ABG HCO3 ABG Base Excess ABG Hemoglobin Oxyhemoglobin Sodium Potassium Chloride 109.3 H Carbon Dioxide 18 L BUN 139 H Creatinine 4.1 H Glucose 144 H POC Glucose 146 H Lactic Acid Calcium 8.1 L Phosphorus Magnesium Direct Bilirubin AST ALT Alkaline Phosphatase Lactate Dehydrogenase Troponin T C-Reactive Protein Total Protein Albumin Prealbumin Triglycerides Cholesterol LDL Cholesterol Direct HDL Cholesterol Urine pH Urine WBC (Auto) Urine Creatinine Urine Total Protein Fluid Total Protein Vancomycin Trough Rheumatoid Factor Complement C4 Miscellaneous Test Crossmatch 09/16/16 09/16/16 09/16/16 12:04 12:10 13:55 WBC RBC Hgb Hct MCV MCH MCHC RDW Plt Count Lymph % (Auto) [place] % (Auto) Lymph # [place] # Baso # Seg Neutrophils % Seg Neuts % (Manual) Lymphocytes % (Manual) Monocytes % (Manual) Eosinophils % (Manual) Basophils % (Manual) Nucleated RBC % Seg Neutrophils # Seg Neutrophils # Man Lymphocytes # (Manual) Monocytes # (Manual) Eosinophils # (Manual) Basophils # (Manual) PT INR Fibrinogen dRVVT Confirm Interp Factor V Activity POC ABG pH POC ABG pCO2 32.9 L POC ABG pO2 ABG pO2 ABG HCO3 ABG Base Excess ABG Hemoglobin Oxyhemoglobin Sodium Potassium Chloride Carbon Dioxide BUN Creatinine Glucose POC Glucose 185 H Lactic Acid Calcium Phosphorus Magnesium Direct Bilirubin AST ALT Alkaline Phosphatase Lactate Dehydrogenase Troponin T C-Reactive Protein Total Protein Albumin Prealbumin Triglycerides Cholesterol LDL Cholesterol Direct HDL Cholesterol Urine pH Urine WBC (Auto) Urine Creatinine Urine Total Protein Fluid Total Protein Vancomycin Trough Rheumatoid Factor Complement C4 Miscellaneous Test Crossmatch See Detail 09/16/16 09/16/16 09/16/16 17:55 19:19 23:48 WBC RBC Hgb Hct MCV MCH MCHC RDW Plt Count Lymph % (Auto) [place] % (Auto) Lymph # [place] # Baso # Seg Neutrophils % Seg Neuts % (Manual) Lymphocytes % (Manual) Monocytes % (Manual) Eosinophils % (Manual) Basophils % (Manual) Nucleated RBC % Seg Neutrophils # Seg Neutrophils # Man Lymphocytes # (Manual) Monocytes # (Manual) Eosinophils # (Manual) Basophils # (Manual) PT INR Fibrinogen dRVVT Confirm Interp Factor V Activity POC ABG pH POC ABG pCO2 POC ABG pO2 ABG pO2 ABG HCO3 ABG Base Excess ABG Hemoglobin Oxyhemoglobin Sodium Potassium Chloride Carbon Dioxide BUN Creatinine Glucose POC Glucose 222 H 107 H Lactic Acid Calcium Phosphorus Magnesium Direct Bilirubin AST ALT Alkaline Phosphatase Lactate Dehydrogenase Troponin T C-Reactive Protein Total Protein Albumin Prealbumin Triglycerides Cholesterol LDL Cholesterol Direct HDL Cholesterol Urine pH Urine WBC (Auto) Urine Creatinine 47.4 H Urine Total Protein 16 H Fluid Total Protein Vancomycin Trough Rheumatoid Factor Complement C4 Miscellaneous Test Crossmatch 09/17/16 09/17/16 09/17/16 03:45 03:45 04:55 WBC 19.6 H RBC 3.41 L Hgb 8.5 L Hct 26.7 L MCV 78 L MCH 25 L MCHC RDW 19.9 H Plt Count Lymph % (Auto) 9.3 L [place] % (Auto) Lymph # [place] # 1.2 H Baso # Seg Neutrophils % 83.9 H Seg Neuts % (Manual) Lymphocytes % (Manual) Monocytes % (Manual) Eosinophils % (Manual) Basophils % (Manual) Nucleated RBC % Seg Neutrophils # 16.4 H Seg Neutrophils # Man Lymphocytes # (Manual) Monocytes # (Manual) Eosinophils # (Manual) Basophils # (Manual) PT INR Fibrinogen dRVVT Confirm Interp Factor V Activity POC ABG pH POC ABG pCO2 POC ABG pO2 ABG pO2 ABG HCO3 ABG Base Excess ABG Hemoglobin Oxyhemoglobin Sodium 146 H Potassium 5.1 H Chloride 110.9 H Carbon Dioxide 16 L BUN 146 H Creatinine 4.0 H Glucose 108 H POC Glucose 133 H Lactic Acid Calcium Phosphorus Magnesium 3.00 H Direct Bilirubin AST ALT Alkaline Phosphatase Lactate Dehydrogenase Troponin T C-Reactive Protein Total Protein Albumin Prealbumin Triglycerides Cholesterol LDL Cholesterol Direct HDL Cholesterol Urine pH Urine WBC (Auto) Urine Creatinine Urine Total Protein Fluid Total Protein Vancomycin Trough Rheumatoid Factor Complement C4 Miscellaneous Test Crossmatch 09/17/16 09/17/16 09/17/16 11:15 17:33 23:47 WBC RBC Hgb Hct MCV MCH MCHC RDW Plt Count Lymph % (Auto) [place] % (Auto) Lymph # [place] # Baso # Seg Neutrophils % Seg Neuts % (Manual) Lymphocytes % (Manual) Monocytes % (Manual) Eosinophils % (Manual) Basophils % (Manual) Nucleated RBC % Seg Neutrophils # Seg Neutrophils # Man Lymphocytes # (Manual) Monocytes # (Manual) Eosinophils # (Manual) Basophils # (Manual) PT INR Fibrinogen dRVVT Confirm Interp Factor V Activity POC ABG pH POC ABG pCO2 POC ABG pO2 ABG pO2 ABG HCO3 ABG Base Excess ABG Hemoglobin Oxyhemoglobin Sodium Potassium Chloride Carbon Dioxide BUN Creatinine Glucose POC Glucose 176 H 246 H 148 H Lactic Acid Calcium Phosphorus Magnesium Direct Bilirubin AST ALT Alkaline Phosphatase Lactate Dehydrogenase Troponin T C-Reactive Protein Total Protein Albumin Prealbumin Triglycerides Cholesterol LDL Cholesterol Direct HDL Cholesterol Urine pH Urine WBC (Auto) Urine Creatinine Urine Total Protein Fluid Total Protein Vancomycin Trough Rheumatoid Factor Complement C4 Miscellaneous Test Crossmatch 09/18/16 09/18/16 09/18/16 05:33 08:31 08:31 WBC 18.0 H RBC 3.17 L Hgb 9.0 L Hct 25.7 L MCV MCH MCHC 35 H RDW 20.4 H Plt Count Lymph % (Auto) [place] % (Auto) Lymph # [place] # Baso # Seg Neutrophils % Seg Neuts % (Manual) Lymphocytes % (Manual) Monocytes % (Manual) Eosinophils % (Manual) Basophils % (Manual) Nucleated RBC % Seg Neutrophils # Seg Neutrophils # Man Lymphocytes # (Manual) Monocytes # (Manual) Eosinophils # (Manual) Basophils # (Manual) PT INR Fibrinogen dRVVT Confirm Interp Factor V Activity POC ABG pH POC ABG pCO2 POC ABG pO2 ABG pO2 ABG HCO3 ABG Base Excess ABG Hemoglobin Oxyhemoglobin Sodium Potassium Chloride Carbon Dioxide 15 L BUN 124 H Creatinine 3.8 H Glucose POC Glucose 120 H Lactic Acid Calcium 8.1 L Phosphorus Magnesium Direct Bilirubin AST ALT Alkaline Phosphatase Lactate Dehydrogenase Troponin T C-Reactive Protein Total Protein Albumin Prealbumin Triglycerides Cholesterol LDL Cholesterol Direct HDL Cholesterol Urine pH Urine WBC (Auto) Urine Creatinine Urine Total Protein Fluid Total Protein Vancomycin Trough Rheumatoid Factor Complement C4 Miscellaneous Test Crossmatch 09/18/16 09/18/16 09/18/16 12:03 15:34 17:50 WBC RBC Hgb Hct MCV MCH MCHC RDW Plt Count Lymph % (Auto) [place] % (Auto) Lymph # [place] # Baso # Seg Neutrophils % Seg Neuts % (Manual) Lymphocytes % (Manual) Monocytes % (Manual) Eosinophils % (Manual) Basophils % (Manual) Nucleated RBC % Seg Neutrophils # Seg Neutrophils # Man Lymphocytes # (Manual) Monocytes # (Manual) Eosinophils # (Manual) Basophils # (Manual) PT INR Fibrinogen dRVVT Confirm Interp Factor V Activity POC ABG pH POC ABG pCO2 25.7 L POC ABG pO2 66 L ABG pO2 ABG HCO3 ABG Base Excess ABG Hemoglobin Oxyhemoglobin Sodium Potassium Chloride Carbon Dioxide BUN Creatinine Glucose POC Glucose 156 H 220 H Lactic Acid Calcium Phosphorus Magnesium Direct Bilirubin AST ALT Alkaline Phosphatase Lactate Dehydrogenase Troponin T C-Reactive Protein Total Protein Albumin Prealbumin Triglycerides Cholesterol LDL Cholesterol Direct HDL Cholesterol Urine pH Urine WBC (Auto) Urine Creatinine Urine Total Protein Fluid Total Protein Vancomycin Trough Rheumatoid Factor Complement C4 Miscellaneous Test Crossmatch 09/19/16 09/19/16 09/19/16 06:21 09:50 09:50 WBC 17.1 H RBC 3.49 L Hgb 9.0 L Hct 28.1 L MCV MCH 26 L MCHC RDW 20.8 H Plt Count Lymph % (Auto) 11.5 L [place] % (Auto) 7.5 H Lymph # [place] # 1.3 H Baso # Seg Neutrophils % 79.8 H Seg Neuts % (Manual) Lymphocytes % (Manual) Monocytes % (Manual) Eosinophils % (Manual) Basophils % (Manual) Nucleated RBC % Seg Neutrophils # 13.7 H Seg Neutrophils # Man Lymphocytes # (Manual) Monocytes # (Manual) Eosinophils # (Manual) Basophils # (Manual) PT INR Fibrinogen dRVVT Confirm Interp Factor V Activity POC ABG pH POC ABG pCO2 POC ABG pO2 ABG pO2 ABG HCO3 ABG Base Excess ABG Hemoglobin Oxyhemoglobin Sodium Potassium Chloride 108.6 H Carbon Dioxide 15 L BUN 125 H Creatinine 4.1 H Glucose 124 H POC Glucose 119 H Lactic Acid Calcium Phosphorus Magnesium Direct Bilirubin AST ALT Alkaline Phosphatase Lactate Dehydrogenase Troponin T C-Reactive Protein Total Protein Albumin Prealbumin Triglycerides Cholesterol LDL Cholesterol Direct HDL Cholesterol Urine pH Urine WBC (Auto) Urine Creatinine Urine Total Protein Fluid Total Protein Vancomycin Trough Rheumatoid Factor Complement C4 Miscellaneous Test Crossmatch 09/19/16 09/19/16 09/19/16 11:25 17:53 23:36 WBC RBC Hgb Hct MCV MCH MCHC RDW Plt Count Lymph % (Auto) [place] % (Auto) Lymph # [place] # Baso # Seg Neutrophils % Seg Neuts % (Manual) Lymphocytes % (Manual) Monocytes % (Manual) Eosinophils % (Manual) Basophils % (Manual) Nucleated RBC % Seg Neutrophils # Seg Neutrophils # Man Lymphocytes # (Manual) Monocytes # (Manual) Eosinophils # (Manual) Basophils # (Manual) PT INR Fibrinogen dRVVT Confirm Interp Factor V Activity POC ABG pH POC ABG pCO2 POC ABG pO2 ABG pO2 ABG HCO3 ABG Base Excess ABG Hemoglobin Oxyhemoglobin Sodium Potassium Chloride Carbon Dioxide BUN Creatinine Glucose POC Glucose 160 H 245 H 121 H Lactic Acid Calcium Phosphorus Magnesium Direct Bilirubin AST ALT Alkaline Phosphatase Lactate Dehydrogenase Troponin T C-Reactive Protein Total Protein Albumin Prealbumin Triglycerides Cholesterol LDL Cholesterol Direct HDL Cholesterol Urine pH Urine WBC (Auto) Urine Creatinine Urine Total Protein Fluid Total Protein Vancomycin Trough Rheumatoid Factor Complement C4 Miscellaneous Test Crossmatch 09/20/16 09/20/16 09/20/16 04:10 04:10 04:10 WBC 17.0 H RBC 3.21 L Hgb 8.2 L Hct 25.5 L MCV MCH 26 L MCHC RDW 20.9 H Plt Count Lymph % (Auto) [place] % (Auto) Lymph # [place] # Baso # Seg Neutrophils % Seg Neuts % (Manual) Lymphocytes % (Manual) Monocytes % (Manual) Eosinophils % (Manual) Basophils % (Manual) Nucleated RBC % Seg Neutrophils # Seg Neutrophils # Man Lymphocytes # (Manual) Monocytes # (Manual) Eosinophils # (Manual) Basophils # (Manual) PT INR Fibrinogen dRVVT Confirm Interp Factor V Activity POC ABG pH POC ABG pCO2 POC ABG pO2 ABG pO2 ABG HCO3 ABG Base Excess ABG Hemoglobin Oxyhemoglobin Sodium Potassium Chloride 111.0 H Carbon Dioxide 16 L BUN 129 H Creatinine 3.7 H Glucose 115 H POC Glucose Lactic Acid Calcium 8.2 L Phosphorus Magnesium Direct Bilirubin AST ALT Alkaline Phosphatase Lactate Dehydrogenase Troponin T C-Reactive Protein Total Protein Albumin Prealbumin Triglycerides 243 H Cholesterol LDL Cholesterol Direct HDL Cholesterol Urine pH Urine WBC (Auto) Urine Creatinine Urine Total Protein Fluid Total Protein Vancomycin Trough Rheumatoid Factor Complement C4 Miscellaneous Test Crossmatch 09/20/16 09/20/16 09/20/16 05:40 11:52 16:50 WBC RBC Hgb Hct MCV MCH MCHC RDW Plt Count Lymph % (Auto) [place] % (Auto) Lymph # [place] # Baso # Seg Neutrophils % Seg Neuts % (Manual) Lymphocytes % (Manual) Monocytes % (Manual) Eosinophils % (Manual) Basophils % (Manual) Nucleated RBC % Seg Neutrophils # Seg Neutrophils # Man Lymphocytes # (Manual) Monocytes # (Manual) Eosinophils # (Manual) Basophils # (Manual) PT INR Fibrinogen dRVVT Confirm Interp Factor V Activity POC ABG pH POC ABG pCO2 POC ABG pO2 ABG pO2 ABG HCO3 ABG Base Excess ABG Hemoglobin Oxyhemoglobin Sodium Potassium Chloride Carbon Dioxide BUN Creatinine Glucose POC Glucose 131 H 183 H 236 H Lactic Acid Calcium Phosphorus Magnesium Direct Bilirubin AST ALT Alkaline Phosphatase Lactate Dehydrogenase Troponin T C-Reactive Protein Total Protein Albumin Prealbumin Triglycerides Cholesterol LDL Cholesterol Direct HDL Cholesterol Urine pH Urine WBC (Auto) Urine Creatinine Urine Total Protein Fluid Total Protein Vancomycin Trough Rheumatoid Factor Complement C4 Miscellaneous Test Crossmatch 09/20/16 09/21/16 09/21/16 23:51 03:30 04:44 WBC RBC Hgb Hct MCV MCH MCHC RDW Plt Count Lymph % (Auto) [place] % (Auto) Lymph # [place] # Baso # Seg Neutrophils % Seg Neuts % (Manual) Lymphocytes % (Manual) Monocytes % (Manual) Eosinophils % (Manual) Basophils % (Manual) Nucleated RBC % Seg Neutrophils # Seg Neutrophils # Man Lymphocytes # (Manual) Monocytes # (Manual) Eosinophils # (Manual) Basophils # (Manual) PT INR Fibrinogen dRVVT Confirm Interp Factor V Activity POC ABG pH POC ABG pCO2 POC ABG pO2 ABG pO2 ABG HCO3 ABG Base Excess ABG Hemoglobin Oxyhemoglobin Sodium Potassium Chloride Carbon Dioxide BUN Creatinine Glucose POC Glucose 114 H 141 H Lactic Acid Calcium Phosphorus Magnesium 2.70 H Direct Bilirubin AST ALT Alkaline Phosphatase Lactate Dehydrogenase Troponin T C-Reactive Protein Total Protein Albumin Prealbumin Triglycerides Cholesterol LDL Cholesterol Direct HDL Cholesterol Urine pH Urine WBC (Auto) Urine Creatinine Urine Total Protein Fluid Total Protein Vancomycin Trough Rheumatoid Factor Complement C4 Miscellaneous Test Crossmatch 09/21/16 09/21/16 09/21/16 07:45 07:45 10:01 WBC 13.8 H RBC 2.94 L Hgb 7.5 L Hct 23.5 L MCV MCH 26 L MCHC RDW 21.2 H Plt Count Lymph % (Auto) 6.9 L [place] % (Auto) 9.4 H Lymph # 0.9 L [place] # 1.3 H Baso # Seg Neutrophils % 83.2 H Seg Neuts % (Manual) Lymphocytes % (Manual) Monocytes % (Manual) Eosinophils % (Manual) Basophils % (Manual) Nucleated RBC % Seg Neutrophils # 11.5 H Seg Neutrophils # Man Lymphocytes # (Manual) Monocytes # (Manual) Eosinophils # (Manual) Basophils # (Manual) PT INR Fibrinogen dRVVT Confirm Interp Factor V Activity POC ABG pH 7.308 L POC ABG pCO2 31.9 L POC ABG pO2 148 H ABG pO2 ABG HCO3 ABG Base Excess ABG Hemoglobin Oxyhemoglobin Sodium 147 H Potassium Chloride 114.2 H Carbon Dioxide 15 L BUN 120 H Creatinine 3.9 H Glucose 156 H POC Glucose Lactic Acid Calcium 8.2 L Phosphorus Magnesium Direct Bilirubin AST ALT Alkaline Phosphatase Lactate Dehydrogenase Troponin T C-Reactive Protein Total Protein Albumin Prealbumin Triglycerides Cholesterol LDL Cholesterol Direct HDL Cholesterol Urine pH Urine WBC (Auto) Urine Creatinine Urine Total Protein Fluid Total Protein Vancomycin Trough Rheumatoid Factor Complement C4 Miscellaneous Test Crossmatch 09/21/16 09/21/16 09/21/16 12:00 12:03 13:00 WBC RBC Hgb Hct MCV MCH MCHC RDW Plt Count Lymph % (Auto) [place] % (Auto) Lymph # [place] # Baso # Seg Neutrophils % Seg Neuts % (Manual) Lymphocytes % (Manual) Monocytes % (Manual) Eosinophils % (Manual) Basophils % (Manual) Nucleated RBC % Seg Neutrophils # Seg Neutrophils # Man Lymphocytes # (Manual) Monocytes # (Manual) Eosinophils # (Manual) Basophils # (Manual) PT INR Fibrinogen dRVVT Confirm Interp Factor V Activity POC ABG pH POC ABG pCO2 POC ABG pO2 ABG pO2 ABG HCO3 ABG Base Excess ABG Hemoglobin Oxyhemoglobin Sodium Potassium Chloride Carbon Dioxide BUN Creatinine Glucose POC Glucose 163 H Lactic Acid Calcium Phosphorus Magnesium Direct Bilirubin AST ALT Alkaline Phosphatase Lactate Dehydrogenase Troponin T C-Reactive Protein Total Protein Albumin Prealbumin Triglycerides Cholesterol LDL Cholesterol Direct HDL Cholesterol Urine pH Urine WBC (Auto) Urine Creatinine 54.8 H Urine Total Protein Fluid Total Protein Vancomycin Trough 2.3 L Rheumatoid Factor Complement C4 Miscellaneous Test Crossmatch 09/21/16 09/21/16 09/22/16 16:51 23:17 06:27 WBC RBC Hgb Hct MCV MCH MCHC RDW Plt Count Lymph % (Auto) [place] % (Auto) Lymph # [place] # Baso # Seg Neutrophils % Seg Neuts % (Manual) Lymphocytes % (Manual) Monocytes % (Manual) Eosinophils % (Manual) Basophils % (Manual) Nucleated RBC % Seg Neutrophils # Seg Neutrophils # Man Lymphocytes # (Manual) Monocytes # (Manual) Eosinophils # (Manual) Basophils # (Manual) PT INR Fibrinogen dRVVT Confirm Interp Factor V Activity POC ABG pH POC ABG pCO2 POC ABG pO2 ABG pO2 ABG HCO3 ABG Base Excess ABG Hemoglobin Oxyhemoglobin Sodium Potassium Chloride Carbon Dioxide BUN Creatinine Glucose POC Glucose 206 H 114 H 115 H Lactic Acid Calcium Phosphorus Magnesium Direct Bilirubin AST ALT Alkaline Phosphatase Lactate Dehydrogenase Troponin T C-Reactive Protein Total Protein Albumin Prealbumin Triglycerides Cholesterol LDL Cholesterol Direct HDL Cholesterol Urine pH Urine WBC (Auto) Urine Creatinine Urine Total Protein Fluid Total Protein Vancomycin Trough Rheumatoid Factor Complement C4 Miscellaneous Test Crossmatch 09/22/16 09/22/16 09/22/16 07:50 07:50 12:00 WBC 17.8 H RBC 3.04 L Hgb 8.0 L Hct 24.7 L MCV MCH 26 L MCHC RDW 21.6 H Plt Count Lymph % (Auto) [place] % (Auto) Lymph # [place] # Baso # Seg Neutrophils % Seg Neuts % (Manual) Lymphocytes % (Manual) Monocytes % (Manual) Eosinophils % (Manual) Basophils % (Manual) Nucleated RBC % Seg Neutrophils # Seg Neutrophils # Man Lymphocytes # (Manual) Monocytes # (Manual) Eosinophils # (Manual) Basophils # (Manual) PT INR Fibrinogen dRVVT Confirm Interp Factor V Activity POC ABG pH POC ABG pCO2 POC ABG pO2 ABG pO2 ABG HCO3 ABG Base Excess ABG Hemoglobin Oxyhemoglobin Sodium 150 H Potassium Chloride 118.2 H Carbon Dioxide 14 L BUN 111 H Creatinine 3.7 H Glucose 157 H POC Glucose 183 H Lactic Acid Calcium Phosphorus Magnesium Direct Bilirubin AST ALT Alkaline Phosphatase Lactate Dehydrogenase Troponin T C-Reactive Protein Total Protein Albumin Prealbumin Triglycerides Cholesterol LDL Cholesterol Direct HDL Cholesterol Urine pH Urine WBC (Auto) Urine Creatinine Urine Total Protein Fluid Total Protein Vancomycin Trough Rheumatoid Factor Complement C4 Miscellaneous Test Crossmatch 09/22/16 09/22/16 09/23/16 17:29 23:10 05:00 WBC 19.2 H RBC 3.13 L Hgb 8.0 L Hct 25.2 L MCV MCH 26 L MCHC RDW 22.1 H Plt Count Lymph % (Auto) [place] % (Auto) Lymph # [place] # Baso # Seg Neutrophils % Seg Neuts % (Manual) 92.0 H Lymphocytes % (Manual) 3.0 L Monocytes % (Manual) Eosinophils % (Manual) Basophils % (Manual) Nucleated RBC % Seg Neutrophils # Seg Neutrophils # Man 17.7 H Lymphocytes # (Manual) 0.6 L Monocytes # (Manual) Eosinophils # (Manual) Basophils # (Manual) PT INR Fibrinogen dRVVT Confirm Interp Factor V Activity POC ABG pH POC ABG pCO2 POC ABG pO2 ABG pO2 ABG HCO3 ABG Base Excess ABG Hemoglobin Oxyhemoglobin Sodium Potassium Chloride Carbon Dioxide BUN Creatinine Glucose POC Glucose 197 H 169 H Lactic Acid Calcium Phosphorus Magnesium Direct Bilirubin AST ALT Alkaline Phosphatase Lactate Dehydrogenase Troponin T C-Reactive Protein Total Protein Albumin Prealbumin Triglycerides Cholesterol LDL Cholesterol Direct HDL Cholesterol Urine pH Urine WBC (Auto) Urine Creatinine Urine Total Protein Fluid Total Protein Vancomycin Trough Rheumatoid Factor Complement C4 Miscellaneous Test Crossmatch 09/23/16 09/23/16 09/23/16 05:00 05:00 05:10 WBC RBC Hgb Hct MCV MCH MCHC RDW Plt Count Lymph % (Auto) [place] % (Auto) Lymph # [place] # Baso # Seg Neutrophils % Seg Neuts % (Manual) Lymphocytes % (Manual) Monocytes % (Manual) Eosinophils % (Manual) Basophils % (Manual) Nucleated RBC % Seg Neutrophils # Seg Neutrophils # Man Lymphocytes # (Manual) Monocytes # (Manual) Eosinophils # (Manual) Basophils # (Manual) PT INR Fibrinogen dRVVT Confirm Interp Factor V Activity POC ABG pH POC ABG pCO2 POC ABG pO2 ABG pO2 ABG HCO3 ABG Base Excess ABG Hemoglobin Oxyhemoglobin Sodium 147 H Potassium 3.2 L Chloride 115.7 H Carbon Dioxide 13 L BUN 111 H Creatinine 3.8 H Glucose 194 H POC Glucose 188 H Lactic Acid Calcium 7.3 L D Phosphorus Magnesium Direct Bilirubin AST ALT Alkaline Phosphatase Lactate Dehydrogenase Troponin T C-Reactive Protein 3.20 H Total Protein Albumin Prealbumin Triglycerides Cholesterol LDL Cholesterol Direct HDL Cholesterol Urine pH Urine WBC (Auto) Urine Creatinine Urine Total Protein Fluid Total Protein Vancomycin Trough Rheumatoid Factor Complement C4 Miscellaneous Test Crossmatch 09/23/16 09/23/16 09/23/16 11:37 12:29 18:01 WBC RBC Hgb Hct MCV MCH MCHC RDW Plt Count Lymph % (Auto) [place] % (Auto) Lymph # [place] # Baso # Seg Neutrophils % Seg Neuts % (Manual) Lymphocytes % (Manual) Monocytes % (Manual) Eosinophils % (Manual) Basophils % (Manual) Nucleated RBC % Seg Neutrophils # Seg Neutrophils # Man Lymphocytes # (Manual) Monocytes # (Manual) Eosinophils # (Manual) Basophils # (Manual) PT INR Fibrinogen dRVVT Confirm Interp Factor V Activity POC ABG pH POC ABG pCO2 18.9 L POC ABG pO2 143 H ABG pO2 ABG HCO3 ABG Base Excess ABG Hemoglobin Oxyhemoglobin Sodium Potassium Chloride Carbon Dioxide BUN Creatinine Glucose POC Glucose 153 H 108 H Lactic Acid Calcium Phosphorus Magnesium Direct Bilirubin AST ALT Alkaline Phosphatase Lactate Dehydrogenase Troponin T C-Reactive Protein Total Protein Albumin Prealbumin Triglycerides Cholesterol LDL Cholesterol Direct HDL Cholesterol Urine pH Urine WBC (Auto) Urine Creatinine Urine Total Protein Fluid Total Protein Vancomycin Trough Rheumatoid Factor Complement C4 Miscellaneous Test Crossmatch 09/23/16 09/23/16 09/24/16 21:19 23:43 05:16 WBC RBC Hgb Hct MCV MCH MCHC RDW Plt Count Lymph % (Auto) [place] % (Auto) Lymph # [place] # Baso # Seg Neutrophils % Seg Neuts % (Manual) Lymphocytes % (Manual) Monocytes % (Manual) Eosinophils % (Manual) Basophils % (Manual) Nucleated RBC % Seg Neutrophils # Seg Neutrophils # Man Lymphocytes # (Manual) Monocytes # (Manual) Eosinophils # (Manual) Basophils # (Manual) PT INR Fibrinogen dRVVT Confirm Interp Factor V Activity POC ABG pH POC ABG pCO2 17.3 L POC ABG pO2 112 H ABG pO2 ABG HCO3 ABG Base Excess ABG Hemoglobin Oxyhemoglobin Sodium Potassium Chloride Carbon Dioxide BUN Creatinine Glucose POC Glucose 143 H 164 H Lactic Acid Calcium Phosphorus Magnesium Direct Bilirubin AST ALT Alkaline Phosphatase Lactate Dehydrogenase Troponin T C-Reactive Protein Total Protein Albumin Prealbumin Triglycerides Cholesterol LDL Cholesterol Direct HDL Cholesterol Urine pH Urine WBC (Auto) Urine Creatinine Urine Total Protein Fluid Total Protein Vancomycin Trough Rheumatoid Factor Complement C4 Miscellaneous Test Crossmatch 09/24/16 09/24/16 09/24/16 05:21 11:58 17:06 WBC RBC Hgb Hct MCV MCH MCHC RDW Plt Count Lymph % (Auto) [place] % (Auto) Lymph # [place] # Baso # Seg Neutrophils % Seg Neuts % (Manual) Lymphocytes % (Manual) Monocytes % (Manual) Eosinophils % (Manual) Basophils % (Manual) Nucleated RBC % Seg Neutrophils # Seg Neutrophils # Man Lymphocytes # (Manual) Monocytes # (Manual) Eosinophils # (Manual) Basophils # (Manual) PT INR Fibrinogen dRVVT Confirm Interp Factor V Activity POC ABG pH POC ABG pCO2 POC ABG pO2 ABG pO2 ABG HCO3 ABG Base Excess ABG Hemoglobin Oxyhemoglobin Sodium Potassium Chloride Carbon Dioxide 10 L BUN 103 H Creatinine 4.3 H Glucose 163 H POC Glucose 173 H 167 H Lactic Acid Calcium 6.5 L Phosphorus Magnesium Direct Bilirubin AST ALT Alkaline Phosphatase Lactate Dehydrogenase Troponin T C-Reactive Protein Total Protein Albumin Prealbumin Triglycerides Cholesterol LDL Cholesterol Direct HDL Cholesterol Urine pH Urine WBC (Auto) Urine Creatinine Urine Total Protein Fluid Total Protein Vancomycin Trough Rheumatoid Factor Complement C4 Miscellaneous Test Crossmatch 09/24/16 09/24/16 09/24/16 20:15 21:02 23:48 WBC RBC Hgb Hct MCV MCH MCHC RDW Plt Count Lymph % (Auto) [place] % (Auto) Lymph # [place] # Baso # Seg Neutrophils % Seg Neuts % (Manual) Lymphocytes % (Manual) Monocytes % (Manual) Eosinophils % (Manual) Basophils % (Manual) Nucleated RBC % Seg Neutrophils # Seg Neutrophils # Man Lymphocytes # (Manual) Monocytes # (Manual) Eosinophils # (Manual) Basophils # (Manual) PT INR Fibrinogen dRVVT Confirm Interp Factor V Activity POC ABG pH 7.288 L POC ABG pCO2 30.2 L 21.5 L POC ABG pO2 32 L 39 L ABG pO2 ABG HCO3 ABG Base Excess ABG Hemoglobin Oxyhemoglobin Sodium Potassium Chloride Carbon Dioxide BUN Creatinine Glucose POC Glucose 109 H Lactic Acid Calcium Phosphorus Magnesium Direct Bilirubin AST ALT Alkaline Phosphatase Lactate Dehydrogenase Troponin T C-Reactive Protein Total Protein Albumin Prealbumin Triglycerides Cholesterol LDL Cholesterol Direct HDL Cholesterol Urine pH Urine WBC (Auto) Urine Creatinine Urine Total Protein Fluid Total Protein Vancomycin Trough Rheumatoid Factor Complement C4 Miscellaneous Test Crossmatch 09/25/16 09/25/16 09/25/16 04:20 04:20 04:20 WBC RBC 2.58 L Hgb 7.0 L Hct 21.0 L MCV MCH 27 L MCHC RDW 23.8 H Plt Count Lymph % (Auto) [place] % (Auto) Lymph # [place] # Baso # Seg Neutrophils % Seg Neuts % (Manual) Lymphocytes % (Manual) 12.0 L Monocytes % (Manual) Eosinophils % (Manual) 7.0 H Basophils % (Manual) 2.0 H Nucleated RBC % Seg Neutrophils # Seg Neutrophils # Man Lymphocytes # (Manual) 0.9 L Monocytes # (Manual) Eosinophils # (Manual) 0.5 H Basophils # (Manual) PT INR Fibrinogen dRVVT Confirm Interp Factor V Activity POC ABG pH POC ABG pCO2 POC ABG pO2 ABG pO2 ABG HCO3 ABG Base Excess ABG Hemoglobin Oxyhemoglobin Sodium Potassium Chloride Carbon Dioxide 15 L BUN 72 H Creatinine 3.8 H Glucose POC Glucose Lactic Acid Calcium 6.0 L Phosphorus 4.60 H Magnesium 1.60 L Direct Bilirubin AST ALT Alkaline Phosphatase Lactate Dehydrogenase Troponin T C-Reactive Protein Total Protein Albumin Prealbumin Triglycerides Cholesterol LDL Cholesterol Direct HDL Cholesterol Urine pH Urine WBC (Auto) Urine Creatinine Urine Total Protein Fluid Total Protein Vancomycin Trough Rheumatoid Factor Complement C4 Miscellaneous Test Crossmatch 09/25/16 09/25/16 09/25/16 04:57 08:02 10:30 WBC RBC Hgb Hct MCV MCH MCHC RDW Plt Count Lymph % (Auto) [place] % (Auto) Lymph # [place] # Baso # Seg Neutrophils % Seg Neuts % (Manual) Lymphocytes % (Manual) Monocytes % (Manual) Eosinophils % (Manual) Basophils % (Manual) Nucleated RBC % Seg Neutrophils # Seg Neutrophils # Man Lymphocytes # (Manual) Monocytes # (Manual) Eosinophils # (Manual) Basophils # (Manual) PT INR Fibrinogen dRVVT Confirm Interp Factor V Activity POC ABG pH POC ABG pCO2 24.7 L POC ABG pO2 152 H ABG pO2 ABG HCO3 ABG Base Excess ABG Hemoglobin Oxyhemoglobin Sodium Potassium Chloride Carbon Dioxide BUN Creatinine Glucose POC Glucose 113 H Lactic Acid Calcium Phosphorus Magnesium Direct Bilirubin AST ALT Alkaline Phosphatase Lactate Dehydrogenase Troponin T C-Reactive Protein Total Protein Albumin Prealbumin Triglycerides Cholesterol LDL Cholesterol Direct HDL Cholesterol Urine pH Urine WBC (Auto) Urine Creatinine Urine Total Protein Fluid Total Protein Vancomycin Trough Rheumatoid Factor Complement C4 Miscellaneous Test Crossmatch See Detail 09/25/16 09/25/16 09/25/16 12:05 17:44 23:47 WBC RBC Hgb Hct MCV MCH MCHC RDW Plt Count Lymph % (Auto) [place] % (Auto) Lymph # [place] # Baso # Seg Neutrophils % Seg Neuts % (Manual) Lymphocytes % (Manual) Monocytes % (Manual) Eosinophils % (Manual) Basophils % (Manual) Nucleated RBC % Seg Neutrophils # Seg Neutrophils # Man Lymphocytes # (Manual) Monocytes # (Manual) Eosinophils # (Manual) Basophils # (Manual) PT INR Fibrinogen dRVVT Confirm Interp Factor V Activity POC ABG pH POC ABG pCO2 POC ABG pO2 ABG pO2 ABG HCO3 ABG Base Excess ABG Hemoglobin Oxyhemoglobin Sodium Potassium Chloride Carbon Dioxide BUN Creatinine Glucose POC Glucose 117 H 119 H 150 H Lactic Acid Calcium Phosphorus Magnesium Direct Bilirubin AST ALT Alkaline Phosphatase Lactate Dehydrogenase Troponin T C-Reactive Protein Total Protein Albumin Prealbumin Triglycerides Cholesterol LDL Cholesterol Direct HDL Cholesterol Urine pH Urine WBC (Auto) Urine Creatinine Urine Total Protein Fluid Total Protein Vancomycin Trough Rheumatoid Factor Complement C4 Miscellaneous Test Crossmatch 09/26/16 09/26/16 09/26/16 04:25 04:25 04:25 WBC RBC 2.65 L Hgb 7.4 L Hct 21.6 L MCV MCH MCHC RDW 22.5 H Plt Count Lymph % (Auto) [place] % (Auto) Lymph # [place] # Baso # Seg Neutrophils % Seg Neuts % (Manual) Lymphocytes % (Manual) 6.0 L Monocytes % (Manual) Eosinophils % (Manual) 11.0 H Basophils % (Manual) Nucleated RBC % Seg Neutrophils # Seg Neutrophils # Man Lymphocytes # (Manual) 0.4 L Monocytes # (Manual) Eosinophils # (Manual) 0.6 H Basophils # (Manual) PT INR Fibrinogen dRVVT Confirm Interp Factor V Activity POC ABG pH POC ABG pCO2 POC ABG pO2 ABG pO2 ABG HCO3 ABG Base Excess ABG Hemoglobin Oxyhemoglobin Sodium Potassium Chloride 97.0 L Carbon Dioxide 19 L BUN 43 H Creatinine 2.6 H Glucose 130 H POC Glucose Lactic Acid 4.40 H* Calcium 6.7 L Phosphorus Magnesium Direct Bilirubin AST ALT Alkaline Phosphatase Lactate Dehydrogenase Troponin T C-Reactive Protein Total Protein Albumin Prealbumin Triglycerides Cholesterol LDL Cholesterol Direct HDL Cholesterol Urine pH Urine WBC (Auto) Urine Creatinine Urine Total Protein Fluid Total Protein Vancomycin Trough Rheumatoid Factor Complement C4 Miscellaneous Test Crossmatch 09/26/16 09/26/16 09/26/16 05:20 11:44 12:12 WBC RBC Hgb Hct MCV MCH MCHC RDW Plt Count Lymph % (Auto) [place] % (Auto) Lymph # [place] # Baso # Seg Neutrophils % Seg Neuts % (Manual) Lymphocytes % (Manual) Monocytes % (Manual) Eosinophils % (Manual) Basophils % (Manual) Nucleated RBC % Seg Neutrophils # Seg Neutrophils # Man Lymphocytes # (Manual) Monocytes # (Manual) Eosinophils # (Manual) Basophils # (Manual) PT INR Fibrinogen dRVVT Confirm Interp Factor V Activity POC ABG pH POC ABG pCO2 27.0 L POC ABG pO2 69 L ABG pO2 ABG HCO3 ABG Base Excess ABG Hemoglobin Oxyhemoglobin Sodium Potassium Chloride Carbon Dioxide BUN Creatinine Glucose POC Glucose 121 H 128 H Lactic Acid Calcium Phosphorus Magnesium Direct Bilirubin AST ALT Alkaline Phosphatase Lactate Dehydrogenase Troponin T C-Reactive Protein Total Protein Albumin Prealbumin Triglycerides Cholesterol LDL Cholesterol Direct HDL Cholesterol Urine pH Urine WBC (Auto) Urine Creatinine Urine Total Protein Fluid Total Protein Vancomycin Trough Rheumatoid Factor Complement C4 Miscellaneous Test Crossmatch 09/26/16 09/26/16 09/27/16 18:31 23:40 08:20 WBC RBC Hgb Hct MCV MCH MCHC RDW Plt Count Lymph % (Auto) [place] % (Auto) Lymph # [place] # Baso # Seg Neutrophils % Seg Neuts % (Manual) Lymphocytes % (Manual) Monocytes % (Manual) Eosinophils % (Manual) Basophils % (Manual) Nucleated RBC % Seg Neutrophils # Seg Neutrophils # Man Lymphocytes # (Manual) Monocytes # (Manual) Eosinophils # (Manual) Basophils # (Manual) PT INR Fibrinogen dRVVT Confirm Interp Factor V Activity POC ABG pH POC ABG pCO2 POC ABG pO2 ABG pO2 ABG HCO3 ABG Base Excess ABG Hemoglobin Oxyhemoglobin Sodium Potassium Chloride Carbon Dioxide BUN Creatinine Glucose POC Glucose 120 H 133 H Lactic Acid 4.10 H* Calcium Phosphorus Magnesium Direct Bilirubin AST ALT Alkaline Phosphatase Lactate Dehydrogenase Troponin T C-Reactive Protein Total Protein Albumin Prealbumin Triglycerides Cholesterol LDL Cholesterol Direct HDL Cholesterol Urine pH Urine WBC (Auto) Urine Creatinine Urine Total Protein Fluid Total Protein Vancomycin Trough Rheumatoid Factor Complement C4 Miscellaneous Test Crossmatch 09/27/16 09/27/16 09/27/16 11:23 15:00 18:15 WBC RBC Hgb Hct MCV MCH MCHC RDW Plt Count Lymph % (Auto) [place] % (Auto) Lymph # [place] # Baso # Seg Neutrophils % Seg Neuts % (Manual) Lymphocytes % (Manual) Monocytes % (Manual) Eosinophils % (Manual) Basophils % (Manual) Nucleated RBC % Seg Neutrophils # Seg Neutrophils # Man Lymphocytes # (Manual) Monocytes # (Manual) Eosinophils # (Manual) Basophils # (Manual) PT INR Fibrinogen dRVVT Confirm Interp Factor V Activity POC ABG pH 7.459 H POC ABG pCO2 27.1 L POC ABG pO2 140 H ABG pO2 ABG HCO3 ABG Base Excess ABG Hemoglobin Oxyhemoglobin Sodium Potassium Chloride Carbon Dioxide BUN Creatinine Glucose POC Glucose 114 H 127 H Lactic Acid Calcium Phosphorus Magnesium Direct Bilirubin AST ALT Alkaline Phosphatase Lactate Dehydrogenase Troponin T C-Reactive Protein Total Protein Albumin Prealbumin Triglycerides Cholesterol LDL Cholesterol Direct HDL Cholesterol Urine pH Urine WBC (Auto) Urine Creatinine Urine Total Protein Fluid Total Protein Vancomycin Trough Rheumatoid Factor Complement C4 Miscellaneous Test Crossmatch 09/27/16 09/27/16 09/28/16 Unknown Unknown 03:45 WBC RBC 2.49 L Hgb 6.8 L Hct 20.7 L MCV MCH 27 L MCHC RDW 22.1 H Plt Count Lymph % (Auto) [place] % (Auto) Lymph # [place] # Baso # Seg Neutrophils % Seg Neuts % (Manual) 32.0 L Lymphocytes % (Manual) 12.0 L Monocytes % (Manual) 11.0 H Eosinophils % (Manual) 10.0 H Basophils % (Manual) Nucleated RBC % Seg Neutrophils # Seg Neutrophils # Man Lymphocytes # (Manual) 1.0 L Monocytes # (Manual) 0.9 H Eosinophils # (Manual) 0.8 H Basophils # (Manual) PT INR Fibrinogen dRVVT Confirm Interp Factor V Activity POC ABG pH POC ABG pCO2 POC ABG pO2 ABG pO2 ABG HCO3 ABG Base Excess ABG Hemoglobin Oxyhemoglobin Sodium 135 L 135 L Potassium 3.5 L Chloride 93.6 L 94.4 L Carbon Dioxide 17 L 21 L BUN 45 H 28 H Creatinine 3.3 H 2.5 H Glucose 106 H POC Glucose Lactic Acid Calcium 7.3 L 7.1 L Phosphorus Magnesium Direct Bilirubin AST ALT Alkaline Phosphatase Lactate Dehydrogenase Troponin T C-Reactive Protein Total Protein Albumin Prealbumin Triglycerides Cholesterol LDL Cholesterol Direct HDL Cholesterol Urine pH Urine WBC (Auto) Urine Creatinine Urine Total Protein Fluid Total Protein Vancomycin Trough Rheumatoid Factor Complement C4 Miscellaneous Test Crossmatch 09/28/16 09/28/16 09/28/16 03:45 07:25 11:58 WBC 13.3 H RBC 3.01 L Hgb 8.4 L Hct 25.0 L MCV MCH MCHC RDW 20.5 H Plt Count 128 L Lymph % (Auto) [place] % (Auto) Lymph # [place] # Baso # Seg Neutrophils % Seg Neuts % (Manual) Lymphocytes % (Manual) 7.0 L Monocytes % (Manual) Eosinophils % (Manual) 6.0 H Basophils % (Manual) Nucleated RBC % Seg Neutrophils # Seg Neutrophils # Man Lymphocytes # (Manual) 0.9 L Monocytes # (Manual) Eosinophils # (Manual) 0.8 H Basophils # (Manual) PT INR Fibrinogen dRVVT Confirm Interp Factor V Activity POC ABG pH POC ABG pCO2 POC ABG pO2 ABG pO2 ABG HCO3 ABG Base Excess ABG Hemoglobin Oxyhemoglobin Sodium Potassium Chloride Carbon Dioxide BUN Creatinine Glucose POC Glucose 121 H Lactic Acid 4.50 H* Calcium Phosphorus Magnesium Direct Bilirubin AST ALT Alkaline Phosphatase Lactate Dehydrogenase Troponin T C-Reactive Protein Total Protein Albumin Prealbumin Triglycerides Cholesterol LDL Cholesterol Direct HDL Cholesterol Urine pH Urine WBC (Auto) Urine Creatinine Urine Total Protein Fluid Total Protein Vancomycin Trough Rheumatoid Factor Complement C4 Miscellaneous Test Crossmatch 09/29/16 09/29/16 09/29/16 06:45 06:45 06:45 WBC 14.9 H RBC 2.74 L Hgb 7.6 L Hct 23.2 L MCV MCH MCHC RDW 20.5 H Plt Count 81 L Lymph % (Auto) [place] % (Auto) Lymph # [place] # Baso # Seg Neutrophils % Seg Neuts % (Manual) 81.0 H Lymphocytes % (Manual) 4.0 L Monocytes % (Manual) Eosinophils % (Manual) Basophils % (Manual) Nucleated RBC % Seg Neutrophils # Seg Neutrophils # Man 12.1 H Lymphocytes # (Manual) 0.6 L Monocytes # (Manual) Eosinophils # (Manual) Basophils # (Manual) PT INR Fibrinogen dRVVT Confirm Interp Factor V Activity POC ABG pH POC ABG pCO2 POC ABG pO2 ABG pO2 ABG HCO3 ABG Base Excess ABG Hemoglobin Oxyhemoglobin Sodium 133 L Potassium 3.4 L Chloride 92.5 L Carbon Dioxide 21 L BUN 33 H Creatinine 3.0 H Glucose POC Glucose Lactic Acid Calcium 6.6 L Phosphorus Magnesium 1.40 L Direct Bilirubin 0.9 H AST ALT Alkaline Phosphatase Lactate Dehydrogenase Troponin T C-Reactive Protein Total Protein 4.3 L Albumin 1.3 L Prealbumin Triglycerides Cholesterol LDL Cholesterol Direct HDL Cholesterol Urine pH Urine WBC (Auto) Urine Creatinine Urine Total Protein Fluid Total Protein Vancomycin Trough Rheumatoid Factor Complement C4 Miscellaneous Test Crossmatch 09/29/16 09/29/16 09/30/16 17:52 20:12 00:07 WBC RBC Hgb Hct MCV MCH MCHC RDW Plt Count Lymph % (Auto) [place] % (Auto) Lymph # [place] # Baso # Seg Neutrophils % Seg Neuts % (Manual) Lymphocytes % (Manual) Monocytes % (Manual) Eosinophils % (Manual) Basophils % (Manual) Nucleated RBC % Seg Neutrophils # Seg Neutrophils # Man Lymphocytes # (Manual) Monocytes # (Manual) Eosinophils # (Manual) Basophils # (Manual) PT INR Fibrinogen dRVVT Confirm Interp Factor V Activity POC ABG pH POC ABG pCO2 POC ABG pO2 ABG pO2 ABG HCO3 ABG Base Excess ABG Hemoglobin Oxyhemoglobin Sodium Potassium Chloride Carbon Dioxide BUN Creatinine Glucose POC Glucose 50 L 51 L Lactic Acid Calcium Phosphorus Magnesium Direct Bilirubin AST ALT Alkaline Phosphatase Lactate Dehydrogenase Troponin T 0.204 H* C-Reactive Protein Total Protein Albumin Prealbumin Triglycerides Cholesterol 31 L LDL Cholesterol Direct 4 L HDL Cholesterol 3 L Urine pH Urine WBC (Auto) Urine Creatinine Urine Total Protein Fluid Total Protein Vancomycin Trough Rheumatoid Factor Complement C4 Miscellaneous Test Crossmatch 09/30/16 09/30/16 09/30/16 01:30 05:15 06:10 WBC RBC Hgb Hct MCV MCH MCHC RDW Plt Count Lymph % (Auto) [place] % (Auto) Lymph # [place] # Baso # Seg Neutrophils % Seg Neuts % (Manual) Lymphocytes % (Manual) Monocytes % (Manual) Eosinophils % (Manual) Basophils % (Manual) Nucleated RBC % Seg Neutrophils # Seg Neutrophils # Man Lymphocytes # (Manual) Monocytes # (Manual) Eosinophils # (Manual) Basophils # (Manual) PT INR Fibrinogen dRVVT Confirm Interp Factor V Activity POC ABG pH POC ABG pCO2 POC ABG pO2 ABG pO2 ABG HCO3 ABG Base Excess ABG Hemoglobin Oxyhemoglobin Sodium 133 L Potassium 3.2 L Chloride 93.2 L Carbon Dioxide 19 L BUN 36 H Creatinine 3.2 H Glucose 104 H POC Glucose 167 H 146 H Lactic Acid Calcium 6.4 L Phosphorus Magnesium 1.60 L Direct Bilirubin AST ALT Alkaline Phosphatase Lactate Dehydrogenase Troponin T C-Reactive Protein Total Protein Albumin Prealbumin Triglycerides Cholesterol LDL Cholesterol Direct HDL Cholesterol Urine pH Urine WBC (Auto) Urine Creatinine Urine Total Protein Fluid Total Protein Vancomycin Trough Rheumatoid Factor Complement C4 Miscellaneous Test Crossmatch 09/30/16 09/30/16 09/30/16 11:26 13:39 18:38 WBC RBC Hgb Hct MCV MCH MCHC RDW Plt Count Lymph % (Auto) [place] % (Auto) Lymph # [place] # Baso # Seg Neutrophils % Seg Neuts % (Manual) Lymphocytes % (Manual) Monocytes % (Manual) Eosinophils % (Manual) Basophils % (Manual) Nucleated RBC % Seg Neutrophils # Seg Neutrophils # Man Lymphocytes # (Manual) Monocytes # (Manual) Eosinophils # (Manual) Basophils # (Manual) PT INR Fibrinogen dRVVT Confirm Interp Factor V Activity POC ABG pH 7.479 H POC ABG pCO2 29.8 L POC ABG pO2 117 H ABG pO2 ABG HCO3 ABG Base Excess ABG Hemoglobin Oxyhemoglobin Sodium Potassium Chloride Carbon Dioxide BUN Creatinine Glucose POC Glucose 140 H 122 H Lactic Acid Calcium Phosphorus Magnesium Direct Bilirubin AST ALT Alkaline Phosphatase Lactate Dehydrogenase Troponin T C-Reactive Protein Total Protein Albumin Prealbumin Triglycerides Cholesterol LDL Cholesterol Direct HDL Cholesterol Urine pH Urine WBC (Auto) Urine Creatinine Urine Total Protein Fluid Total Protein Vancomycin Trough Rheumatoid Factor Complement C4 Miscellaneous Test Crossmatch 10/01/16 10/01/16 10/01/16 06:00 06:00 12:37 WBC 12.6 H RBC 2.75 L Hgb 7.3 L Hct 23.3 L MCV MCH 27 L MCHC RDW 20.6 H Plt Count 72 L Lymph % (Auto) [place] % (Auto) Lymph # [place] # Baso # Seg Neutrophils % Seg Neuts % (Manual) 31.0 L Lymphocytes % (Manual) 8.0 L Monocytes % (Manual) Eosinophils % (Manual) Basophils % (Manual) Nucleated RBC % 3.0 H Seg Neutrophils # Seg Neutrophils # Man Lymphocytes # (Manual) 1.0 L Monocytes # (Manual) Eosinophils # (Manual) Basophils # (Manual) PT INR Fibrinogen dRVVT Confirm Interp Factor V Activity POC ABG pH POC ABG pCO2 POC ABG pO2 ABG pO2 ABG HCO3 ABG Base Excess ABG Hemoglobin Oxyhemoglobin Sodium 127 L Potassium Chloride 86.8 L Carbon Dioxide 20 L BUN 42 H Creatinine 3.5 H Glucose POC Glucose 65 L Lactic Acid Calcium 7.0 L Phosphorus Magnesium Direct Bilirubin AST ALT Alkaline Phosphatase Lactate Dehydrogenase Troponin T C-Reactive Protein Total Protein Albumin Prealbumin Triglycerides Cholesterol LDL Cholesterol Direct HDL Cholesterol Urine pH Urine WBC (Auto) Urine Creatinine Urine Total Protein Fluid Total Protein Vancomycin Trough Rheumatoid Factor Complement C4 Miscellaneous Test Crossmatch 10/01/16 10/01/16 10/02/16 17:39 23:32 00:59 WBC RBC Hgb Hct MCV MCH MCHC RDW Plt Count Lymph % (Auto) [place] % (Auto) Lymph # [place] # Baso # Seg Neutrophils % Seg Neuts % (Manual) Lymphocytes % (Manual) Monocytes % (Manual) Eosinophils % (Manual) Basophils % (Manual) Nucleated RBC % Seg Neutrophils # Seg Neutrophils # Man Lymphocytes # (Manual) Monocytes # (Manual) Eosinophils # (Manual) Basophils # (Manual) PT INR Fibrinogen dRVVT Confirm Interp Factor V Activity POC ABG pH POC ABG pCO2 POC ABG pO2 ABG pO2 ABG HCO3 ABG Base Excess ABG Hemoglobin Oxyhemoglobin Sodium Potassium Chloride Carbon Dioxide BUN Creatinine Glucose POC Glucose 107 H 52 L 145 H Lactic Acid Calcium Phosphorus Magnesium Direct Bilirubin AST ALT Alkaline Phosphatase Lactate Dehydrogenase Troponin T C-Reactive Protein Total Protein Albumin Prealbumin Triglycerides Cholesterol LDL Cholesterol Direct HDL Cholesterol Urine pH Urine WBC (Auto) Urine Creatinine Urine Total Protein Fluid Total Protein Vancomycin Trough Rheumatoid Factor Complement C4 Miscellaneous Test Crossmatch 10/02/16 10/02/16 10/02/16 10:30 10:50 10:50 WBC 14.7 H RBC 2.76 L Hgb 7.4 L Hct 23.6 L MCV MCH 27 L MCHC RDW 20.2 H Plt Count 79 L Lymph % (Auto) [place] % (Auto) Lymph # [place] # Baso # Seg Neutrophils % Seg Neuts % (Manual) 86.0 H Lymphocytes % (Manual) 6.0 L Monocytes % (Manual) Eosinophils % (Manual) Basophils % (Manual) Nucleated RBC % Seg Neutrophils # Seg Neutrophils # Man 12.6 H Lymphocytes # (Manual) 0.9 L Monocytes # (Manual) Eosinophils # (Manual) Basophils # (Manual) PT INR Fibrinogen dRVVT Confirm Interp Factor V Activity POC ABG pH 7.486 H POC ABG pCO2 30.1 L POC ABG pO2 108 H ABG pO2 ABG HCO3 ABG Base Excess ABG Hemoglobin Oxyhemoglobin Sodium 131 L Potassium 3.4 L Chloride 89.9 L Carbon Dioxide BUN 26 H Creatinine 2.6 H Glucose POC Glucose Lactic Acid Calcium 7.0 L Phosphorus Magnesium Direct Bilirubin AST ALT Alkaline Phosphatase Lactate Dehydrogenase Troponin T C-Reactive Protein Total Protein Albumin Prealbumin Triglycerides Cholesterol LDL Cholesterol Direct HDL Cholesterol Urine pH Urine WBC (Auto) Urine Creatinine Urine Total Protein Fluid Total Protein Vancomycin Trough Rheumatoid Factor Complement C4 Miscellaneous Test Crossmatch 10/02/16 10/03/16 10/03/16 23:45 00:45 05:10 WBC 12.9 H RBC 2.77 L Hgb 7.6 L Hct 23.7 L MCV MCH 27 L MCHC RDW 19.7 H Plt Count 89 L Lymph % (Auto) [place] % (Auto) Lymph # [place] # Baso # Seg Neutrophils % Seg Neuts % (Manual) Lymphocytes % (Manual) 8.0 L Monocytes % (Manual) Eosinophils % (Manual) Basophils % (Manual) Nucleated RBC % Seg Neutrophils # 11.9 H Seg Neutrophils # Man Lymphocytes # (Manual) 1.0 L Monocytes # (Manual) Eosinophils # (Manual) Basophils # (Manual) PT INR Fibrinogen dRVVT Confirm Interp Factor V Activity POC ABG pH POC ABG pCO2 POC ABG pO2 ABG pO2 ABG HCO3 ABG Base Excess ABG Hemoglobin Oxyhemoglobin Sodium Potassium Chloride Carbon Dioxide BUN Creatinine Glucose POC Glucose 55 L 199 H Lactic Acid Calcium Phosphorus Magnesium Direct Bilirubin AST ALT Alkaline Phosphatase Lactate Dehydrogenase Troponin T C-Reactive Protein Total Protein Albumin Prealbumin Triglycerides Cholesterol LDL Cholesterol Direct HDL Cholesterol Urine pH Urine WBC (Auto) Urine Creatinine Urine Total Protein Fluid Total Protein Vancomycin Trough Rheumatoid Factor Complement C4 Miscellaneous Test Crossmatch 10/03/16 10/03/16 10/03/16 05:10 12:14 13:18 WBC RBC Hgb Hct MCV MCH MCHC RDW Plt Count Lymph % (Auto) [place] % (Auto) Lymph # [place] # Baso # Seg Neutrophils % Seg Neuts % (Manual) Lymphocytes % (Manual) Monocytes % (Manual) Eosinophils % (Manual) Basophils % (Manual) Nucleated RBC % Seg Neutrophils # Seg Neutrophils # Man Lymphocytes # (Manual) Monocytes # (Manual) Eosinophils # (Manual) Basophils # (Manual) PT INR Fibrinogen dRVVT Confirm Interp Factor V Activity POC ABG pH POC ABG pCO2 POC ABG pO2 ABG pO2 ABG HCO3 ABG Base Excess ABG Hemoglobin Oxyhemoglobin Sodium 129 L Potassium 3.3 L Chloride 88.8 L Carbon Dioxide 20 L BUN 29 H Creatinine 2.8 H Glucose POC Glucose 68 L 127 H Lactic Acid Calcium 7.2 L Phosphorus Magnesium Direct Bilirubin AST ALT Alkaline Phosphatase Lactate Dehydrogenase Troponin T C-Reactive Protein Total Protein Albumin Prealbumin Triglycerides Cholesterol LDL Cholesterol Direct HDL Cholesterol Urine pH Urine WBC (Auto) Urine Creatinine Urine Total Protein Fluid Total Protein Vancomycin Trough Rheumatoid Factor Complement C4 Miscellaneous Test Crossmatch 10/03/16 10/03/16 10/03/16 14:42 18:21 19:09 WBC RBC Hgb Hct MCV MCH MCHC RDW Plt Count Lymph % (Auto) [place] % (Auto) Lymph # [place] # Baso # Seg Neutrophils % Seg Neuts % (Manual) Lymphocytes % (Manual) Monocytes % (Manual) Eosinophils % (Manual) Basophils % (Manual) Nucleated RBC % Seg Neutrophils # Seg Neutrophils # Man Lymphocytes # (Manual) Monocytes # (Manual) Eosinophils # (Manual) Basophils # (Manual) PT INR Fibrinogen dRVVT Confirm Interp Factor V Activity POC ABG pH 7.499 H POC ABG pCO2 28.4 L POC ABG pO2 44 L ABG pO2 ABG HCO3 ABG Base Excess ABG Hemoglobin Oxyhemoglobin Sodium Potassium Chloride Carbon Dioxide BUN Creatinine Glucose POC Glucose 64 L 205 H Lactic Acid Calcium Phosphorus Magnesium Direct Bilirubin AST ALT Alkaline Phosphatase Lactate Dehydrogenase Troponin T C-Reactive Protein Total Protein Albumin Prealbumin Triglycerides Cholesterol LDL Cholesterol Direct HDL Cholesterol Urine pH Urine WBC (Auto) Urine Creatinine Urine Total Protein Fluid Total Protein Vancomycin Trough Rheumatoid Factor Complement C4 Miscellaneous Test Crossmatch 10/03/16 10/04/16 10/04/16 23:33 04:18 06:30 WBC RBC 2.54 L Hgb 7.1 L Hct 21.7 L MCV MCH MCHC RDW 19.5 H Plt Count 76 L Lymph % (Auto) [place] % (Auto) Lymph # [place] # Baso # Seg Neutrophils % Seg Neuts % (Manual) 88.0 H Lymphocytes % (Manual) 6.0 L Monocytes % (Manual) Eosinophils % (Manual) Basophils % (Manual) Nucleated RBC % Seg Neutrophils # Seg Neutrophils # Man 8.8 H Lymphocytes # (Manual) 0.6 L Monocytes # (Manual) Eosinophils # (Manual) Basophils # (Manual) PT INR Fibrinogen dRVVT Confirm Interp Factor V Activity POC ABG pH 7.461 H POC ABG pCO2 33.6 L POC ABG pO2 211 H ABG pO2 ABG HCO3 ABG Base Excess ABG Hemoglobin Oxyhemoglobin Sodium Potassium Chloride Carbon Dioxide BUN Creatinine Glucose POC Glucose 136 H Lactic Acid Calcium Phosphorus Magnesium Direct Bilirubin AST ALT Alkaline Phosphatase Lactate Dehydrogenase Troponin T C-Reactive Protein Total Protein Albumin Prealbumin Triglycerides Cholesterol LDL Cholesterol Direct HDL Cholesterol Urine pH Urine WBC (Auto) Urine Creatinine Urine Total Protein Fluid Total Protein Vancomycin Trough Rheumatoid Factor Complement C4 Miscellaneous Test Crossmatch 10/04/16 10/04/16 10/04/16 06:30 11:45 17:54 WBC RBC Hgb Hct MCV MCH MCHC RDW Plt Count Lymph % (Auto) [place] % (Auto) Lymph # [place] # Baso # Seg Neutrophils % Seg Neuts % (Manual) Lymphocytes % (Manual) Monocytes % (Manual) Eosinophils % (Manual) Basophils % (Manual) Nucleated RBC % Seg Neutrophils # Seg Neutrophils # Man Lymphocytes # (Manual) Monocytes # (Manual) Eosinophils # (Manual) Basophils # (Manual) PT INR Fibrinogen dRVVT Confirm Interp Factor V Activity POC ABG pH POC ABG pCO2 POC ABG pO2 ABG pO2 ABG HCO3 ABG Base Excess ABG Hemoglobin Oxyhemoglobin Sodium 128 L Potassium Chloride 87.4 L Carbon Dioxide 20 L BUN 34 H Creatinine 2.9 H Glucose 127 H POC Glucose 158 H 160 H Lactic Acid Calcium 7.4 L Phosphorus Magnesium Direct Bilirubin AST ALT Alkaline Phosphatase Lactate Dehydrogenase Troponin T C-Reactive Protein Total Protein Albumin Prealbumin Triglycerides Cholesterol LDL Cholesterol Direct HDL Cholesterol Urine pH Urine WBC (Auto) Urine Creatinine Urine Total Protein Fluid Total Protein Vancomycin Trough Rheumatoid Factor Complement C4 Miscellaneous Test Crossmatch 10/04/16 10/05/16 10/05/16 23:25 04:30 05:00 WBC RBC 2.64 L Hgb 7.5 L Hct 22.6 L MCV MCH MCHC RDW 19.3 H Plt Count 80 L Lymph % (Auto) [place] % (Auto) Lymph # [place] # Baso # Seg Neutrophils % Seg Neuts % (Manual) Lymphocytes % (Manual) 12.0 L Monocytes % (Manual) Eosinophils % (Manual) Basophils % (Manual) Nucleated RBC % Seg Neutrophils # Seg Neutrophils # Man Lymphocytes # (Manual) Monocytes # (Manual) Eosinophils # (Manual) Basophils # (Manual) PT INR Fibrinogen dRVVT Confirm Interp Factor V Activity POC ABG pH 7.475 H POC ABG pCO2 33.3 L POC ABG pO2 140 H ABG pO2 ABG HCO3 ABG Base Excess ABG Hemoglobin Oxyhemoglobin Sodium Potassium Chloride Carbon Dioxide BUN Creatinine Glucose POC Glucose 141 H Lactic Acid Calcium Phosphorus Magnesium Direct Bilirubin AST ALT Alkaline Phosphatase Lactate Dehydrogenase Troponin T C-Reactive Protein Total Protein Albumin Prealbumin Triglycerides Cholesterol LDL Cholesterol Direct HDL Cholesterol Urine pH Urine WBC (Auto) Urine Creatinine Urine Total Protein Fluid Total Protein Vancomycin Trough Rheumatoid Factor Complement C4 Miscellaneous Test Crossmatch 10/05/16 10/05/16 10/05/16 05:00 05:09 12:58 WBC RBC Hgb Hct MCV MCH MCHC RDW Plt Count Lymph % (Auto) [place] % (Auto) Lymph # [place] # Baso # Seg Neutrophils % Seg Neuts % (Manual) Lymphocytes % (Manual) Monocytes % (Manual) Eosinophils % (Manual) Basophils % (Manual) Nucleated RBC % Seg Neutrophils # Seg Neutrophils # Man Lymphocytes # (Manual) Monocytes # (Manual) Eosinophils # (Manual) Basophils # (Manual) PT INR Fibrinogen dRVVT Confirm Interp Factor V Activity POC ABG pH POC ABG pCO2 POC ABG pO2 ABG pO2 ABG HCO3 ABG Base Excess ABG Hemoglobin Oxyhemoglobin Sodium 131 L Potassium Chloride 94.0 L Carbon Dioxide 20 L BUN 22 H Creatinine 2.0 H Glucose 123 H POC Glucose 166 H 179 H Lactic Acid Calcium 7.7 L Phosphorus 2.20 L D Magnesium Direct Bilirubin AST ALT Alkaline Phosphatase Lactate Dehydrogenase Troponin T C-Reactive Protein Total Protein Albumin Prealbumin Triglycerides Cholesterol LDL Cholesterol Direct HDL Cholesterol Urine pH Urine WBC (Auto) Urine Creatinine Urine Total Protein Fluid Total Protein Vancomycin Trough Rheumatoid Factor Complement C4 Miscellaneous Test Crossmatch 10/05/16 10/05/16 10/05/16 15:50 18:53 23:12 WBC RBC Hgb Hct MCV MCH MCHC RDW Plt Count Lymph % (Auto) [place] % (Auto) Lymph # [place] # Baso # Seg Neutrophils % Seg Neuts % (Manual) Lymphocytes % (Manual) Monocytes % (Manual) Eosinophils % (Manual) Basophils % (Manual) Nucleated RBC % Seg Neutrophils # Seg Neutrophils # Man Lymphocytes # (Manual) Monocytes # (Manual) Eosinophils # (Manual) Basophils # (Manual) PT INR Fibrinogen dRVVT Confirm Interp Factor V Activity POC ABG pH POC ABG pCO2 POC ABG pO2 ABG pO2 ABG HCO3 ABG Base Excess ABG Hemoglobin Oxyhemoglobin Sodium Potassium Chloride Carbon Dioxide BUN Creatinine Glucose POC Glucose 150 H 164 H Lactic Acid Calcium Phosphorus Magnesium Direct Bilirubin AST ALT Alkaline Phosphatase Lactate Dehydrogenase Troponin T C-Reactive Protein Total Protein Albumin Prealbumin Triglycerides Cholesterol LDL Cholesterol Direct HDL Cholesterol Urine pH Urine WBC (Auto) Urine Creatinine Urine Total Protein Fluid Total Protein Vancomycin Trough Rheumatoid Factor Complement C4 Miscellaneous Test Crossmatch See Detail 10/06/16 10/06/16 10/06/16 03:50 03:50 04:53 WBC RBC 3.00 L Hgb 8.6 L Hct 25.8 L MCV MCH MCHC RDW 17.9 H Plt Count 65 L Lymph % (Auto) [place] % (Auto) Lymph # [place] # Baso # Seg Neutrophils % Seg Neuts % (Manual) 30.0 L Lymphocytes % (Manual) 5.0 L Monocytes % (Manual) Eosinophils % (Manual) Basophils % (Manual) Nucleated RBC % Seg Neutrophils # Seg Neutrophils # Man Lymphocytes # (Manual) 0.4 L Monocytes # (Manual) Eosinophils # (Manual) Basophils # (Manual) PT INR Fibrinogen dRVVT Confirm Interp Factor V Activity POC ABG pH 7.310 L POC ABG pCO2 49.0 H POC ABG pO2 ABG pO2 ABG HCO3 ABG Base Excess ABG Hemoglobin Oxyhemoglobin Sodium 133 L Potassium Chloride 95.9 L Carbon Dioxide BUN 26 H Creatinine 2.0 H Glucose 116 H POC Glucose Lactic Acid Calcium 7.8 L Phosphorus Magnesium Direct Bilirubin AST ALT Alkaline Phosphatase Lactate Dehydrogenase Troponin T C-Reactive Protein Total Protein Albumin Prealbumin Triglycerides Cholesterol LDL Cholesterol Direct HDL Cholesterol Urine pH Urine WBC (Auto) Urine Creatinine Urine Total Protein Fluid Total Protein Vancomycin Trough Rheumatoid Factor Complement C4 Miscellaneous Test Crossmatch 10/06/16 10/06/16 10/06/16 05:23 11:52 18:34 WBC RBC Hgb Hct MCV MCH MCHC RDW Plt Count Lymph % (Auto) [place] % (Auto) Lymph # [place] # Baso # Seg Neutrophils % Seg Neuts % (Manual) Lymphocytes % (Manual) Monocytes % (Manual) Eosinophils % (Manual) Basophils % (Manual) Nucleated RBC % Seg Neutrophils # Seg Neutrophils # Man Lymphocytes # (Manual) Monocytes # (Manual) Eosinophils # (Manual) Basophils # (Manual) PT INR Fibrinogen dRVVT Confirm Interp Factor V Activity POC ABG pH POC ABG pCO2 POC ABG pO2 ABG pO2 ABG HCO3 ABG Base Excess ABG Hemoglobin Oxyhemoglobin Sodium Potassium Chloride Carbon Dioxide BUN Creatinine Glucose POC Glucose 126 H 116 H 129 H Lactic Acid Calcium Phosphorus Magnesium Direct Bilirubin AST ALT Alkaline Phosphatase Lactate Dehydrogenase Troponin T C-Reactive Protein Total Protein Albumin Prealbumin Triglycerides Cholesterol LDL Cholesterol Direct HDL Cholesterol Urine pH Urine WBC (Auto) Urine Creatinine Urine Total Protein Fluid Total Protein Vancomycin Trough Rheumatoid Factor Complement C4 Miscellaneous Test Crossmatch 10/07/16 10/07/16 10/07/16 03:45 05:00 10:00 WBC 17.0 H RBC 2.68 L Hgb 7.3 L Hct 25.3 L MCV MCH 27 L MCHC 29 L RDW 19.6 H Plt Count 74 L Lymph % (Auto) [place] % (Auto) Lymph # [place] # Baso # Seg Neutrophils % Seg Neuts % (Manual) Lymphocytes % (Manual) 12.0 L Monocytes % (Manual) Eosinophils % (Manual) Basophils % (Manual) Nucleated RBC % 4.0 H Seg Neutrophils # Seg Neutrophils # Man 10.7 H Lymphocytes # (Manual) Monocytes # (Manual) Eosinophils # (Manual) Basophils # (Manual) PT INR Fibrinogen dRVVT Confirm Interp Factor V Activity POC ABG pH POC ABG pCO2 POC ABG pO2 ABG pO2 ABG HCO3 ABG Base Excess ABG Hemoglobin Oxyhemoglobin Sodium 130 L Potassium 3.2 L Chloride 93.9 L Carbon Dioxide 20 L BUN 44 H Creatinine 2.7 H Glucose 129 H POC Glucose Lactic Acid Calcium 7.4 L Phosphorus Magnesium Direct Bilirubin AST ALT 6 L Alkaline Phosphatase 195 H Lactate Dehydrogenase Troponin T C-Reactive Protein Total Protein 4.9 L Albumin 1.0 L Prealbumin Triglycerides Cholesterol LDL Cholesterol Direct HDL Cholesterol Urine pH Urine WBC (Auto) Urine Creatinine Urine Total Protein Fluid Total Protein Vancomycin Trough Rheumatoid Factor Complement C4 Miscellaneous Test Flexitest 1 H Crossmatch 10/07/16 10/07/16 10/07/16 10:00 11:24 18:10 WBC RBC Hgb Hct MCV MCH MCHC RDW Plt Count Lymph % (Auto) [place] % (Auto) Lymph # [place] # Baso # Seg Neutrophils % Seg Neuts % (Manual) Lymphocytes % (Manual) Monocytes % (Manual) Eosinophils % (Manual) Basophils % (Manual) Nucleated RBC % Seg Neutrophils # Seg Neutrophils # Man Lymphocytes # (Manual) Monocytes # (Manual) Eosinophils # (Manual) Basophils # (Manual) PT INR Fibrinogen dRVVT Confirm Interp Factor V Activity POC ABG pH POC ABG pCO2 POC ABG pO2 ABG pO2 ABG HCO3 ABG Base Excess ABG Hemoglobin Oxyhemoglobin Sodium Potassium Chloride Carbon Dioxide BUN Creatinine Glucose POC Glucose 116 H 130 H Lactic Acid Calcium Phosphorus Magnesium Direct Bilirubin AST ALT Alkaline Phosphatase Lactate Dehydrogenase Troponin T C-Reactive Protein 19.40 H Total Protein Albumin Prealbumin Triglycerides Cholesterol LDL Cholesterol Direct HDL Cholesterol Urine pH Urine WBC (Auto) Urine Creatinine Urine Total Protein Fluid Total Protein Vancomycin Trough Rheumatoid Factor Complement C4 Miscellaneous Test Crossmatch 10/07/16 10/08/16 10/08/16 18:30 00:00 04:00 WBC RBC Hgb Hct MCV MCH MCHC RDW Plt Count Lymph % (Auto) [place] % (Auto) Lymph # [place] # Baso # Seg Neutrophils % Seg Neuts % (Manual) Lymphocytes % (Manual) Monocytes % (Manual) Eosinophils % (Manual) Basophils % (Manual) Nucleated RBC % Seg Neutrophils # Seg Neutrophils # Man Lymphocytes # (Manual) Monocytes # (Manual) Eosinophils # (Manual) Basophils # (Manual) PT INR Fibrinogen dRVVT Confirm Interp Factor V Activity POC ABG pH POC ABG pCO2 POC ABG pO2 ABG pO2 ABG HCO3 ABG Base Excess ABG Hemoglobin Oxyhemoglobin Sodium 132 L Potassium 3.3 L Chloride 93.6 L Carbon Dioxide 17 L BUN 59 H Creatinine 2.7 H Glucose 121 H POC Glucose 122 H Lactic Acid Calcium 7.6 L Phosphorus Magnesium Direct Bilirubin AST ALT Alkaline Phosphatase Lactate Dehydrogenase Troponin T C-Reactive Protein Total Protein Albumin Prealbumin Triglycerides Cholesterol LDL Cholesterol Direct HDL Cholesterol Urine pH Urine WBC (Auto) > 182.0 H Urine Creatinine Urine Total Protein Fluid Total Protein Vancomycin Trough Rheumatoid Factor Complement C4 Miscellaneous Test Crossmatch 10/08/16 10/08/16 10/08/16 04:30 05:30 11:51 WBC RBC 5.15 H Hgb 14.4 H D Hct 44.5 H D MCV MCH MCHC RDW 19.5 H Plt Count 56 L Lymph % (Auto) [place] % (Auto) Lymph # [place] # Baso # Seg Neutrophils % Seg Neuts % (Manual) 24.0 L Lymphocytes % (Manual) 8.0 L Monocytes % (Manual) Eosinophils % (Manual) Basophils % (Manual) Nucleated RBC % 9.0 H Seg Neutrophils # Seg Neutrophils # Man Lymphocytes # (Manual) 0.7 L Monocytes # (Manual) Eosinophils # (Manual) Basophils # (Manual) PT INR Fibrinogen dRVVT Confirm Interp Factor V Activity POC ABG pH POC ABG pCO2 POC ABG pO2 ABG pO2 ABG HCO3 ABG Base Excess ABG Hemoglobin Oxyhemoglobin Sodium Potassium Chloride Carbon Dioxide BUN Creatinine Glucose POC Glucose 125 H 150 H Lactic Acid Calcium Phosphorus Magnesium Direct Bilirubin AST ALT Alkaline Phosphatase Lactate Dehydrogenase Troponin T C-Reactive Protein Total Protein Albumin Prealbumin Triglycerides Cholesterol LDL Cholesterol Direct HDL Cholesterol Urine pH Urine WBC (Auto) Urine Creatinine Urine Total Protein Fluid Total Protein Vancomycin Trough Rheumatoid Factor Complement C4 Miscellaneous Test Crossmatch 10/08/16 10/08/16 10/08/16 12:49 17:07 19:30 WBC RBC Hgb 7.1 L D Hct 22.4 L D MCV MCH MCHC RDW Plt Count Lymph % (Auto) [place] % (Auto) Lymph # [place] # Baso # Seg Neutrophils % Seg Neuts % (Manual) Lymphocytes % (Manual) Monocytes % (Manual) Eosinophils % (Manual) Basophils % (Manual) Nucleated RBC % Seg Neutrophils # Seg Neutrophils # Man Lymphocytes # (Manual) Monocytes # (Manual) Eosinophils # (Manual) Basophils # (Manual) PT INR Fibrinogen dRVVT Confirm Interp Factor V Activity POC ABG pH POC ABG pCO2 28.2 L POC ABG pO2 111 H ABG pO2 ABG HCO3 ABG Base Excess ABG Hemoglobin Oxyhemoglobin Sodium Potassium Chloride Carbon Dioxide BUN Creatinine Glucose POC Glucose 145 H Lactic Acid Calcium Phosphorus Magnesium Direct Bilirubin AST ALT Alkaline Phosphatase Lactate Dehydrogenase Troponin T C-Reactive Protein Total Protein Albumin Prealbumin Triglycerides Cholesterol LDL Cholesterol Direct HDL Cholesterol Urine pH Urine WBC (Auto) Urine Creatinine Urine Total Protein Fluid Total Protein Vancomycin Trough Rheumatoid Factor Complement C4 Miscellaneous Test Crossmatch 10/08/16 10/09/16 10/09/16 19:30 03:45 03:45 WBC 12.6 H RBC 2.36 L Hgb 6.7 L Hct 21.1 L MCV MCH MCHC RDW 19.5 H Plt Count 75 L Lymph % (Auto) [place] % (Auto) Lymph # [place] # Baso # Seg Neutrophils % Seg Neuts % (Manual) Lymphocytes % (Manual) Monocytes % (Manual) 10.0 H Eosinophils % (Manual) Basophils % (Manual) Nucleated RBC % 3.0 H Seg Neutrophils # Seg Neutrophils # Man Lymphocytes # (Manual) Monocytes # (Manual) 1.3 H Eosinophils # (Manual) Basophils # (Manual) PT 18.0 H INR 1.41 H Fibrinogen dRVVT Confirm Interp Factor V Activity POC ABG pH POC ABG pCO2 POC ABG pO2 ABG pO2 ABG HCO3 ABG Base Excess ABG Hemoglobin Oxyhemoglobin Sodium 135 L Potassium Chloride Carbon Dioxide 17 L BUN 81 H Creatinine 3.2 H Glucose 109 H POC Glucose Lactic Acid Calcium 7.4 L Phosphorus 4.60 H D Magnesium Direct Bilirubin AST ALT Alkaline Phosphatase Lactate Dehydrogenase Troponin T C-Reactive Protein Total Protein Albumin Prealbumin Triglycerides Cholesterol LDL Cholesterol Direct HDL Cholesterol Urine pH Urine WBC (Auto) Urine Creatinine Urine Total Protein Fluid Total Protein Vancomycin Trough Rheumatoid Factor Complement C4 Miscellaneous Test Crossmatch 10/09/16 10/09/16 10/09/16 03:45 05:14 07:20 WBC RBC Hgb Hct MCV MCH MCHC RDW Plt Count Lymph % (Auto) [place] % (Auto) Lymph # [place] # Baso # Seg Neutrophils % Seg Neuts % (Manual) Lymphocytes % (Manual) Monocytes % (Manual) Eosinophils % (Manual) Basophils % (Manual) Nucleated RBC % Seg Neutrophils # Seg Neutrophils # Man Lymphocytes # (Manual) Monocytes # (Manual) Eosinophils # (Manual) Basophils # (Manual) PT 19.0 H INR 1.51 H Fibrinogen dRVVT Confirm Interp Factor V Activity POC ABG pH POC ABG pCO2 POC ABG pO2 ABG pO2 ABG HCO3 ABG Base Excess ABG Hemoglobin Oxyhemoglobin Sodium Potassium Chloride Carbon Dioxide BUN Creatinine Glucose POC Glucose 151 H Lactic Acid Calcium Phosphorus Magnesium Direct Bilirubin AST ALT Alkaline Phosphatase Lactate Dehydrogenase Troponin T C-Reactive Protein Total Protein Albumin Prealbumin Triglycerides Cholesterol LDL Cholesterol Direct HDL Cholesterol Urine pH Urine WBC (Auto) Urine Creatinine Urine Total Protein Fluid Total Protein Vancomycin Trough Rheumatoid Factor Complement C4 Miscellaneous Test Crossmatch See Detail 10/09/16 10/09/16 10/09/16 11:46 16:20 16:43 WBC RBC Hgb 7.2 L Hct 22.2 L MCV MCH MCHC RDW Plt Count Lymph % (Auto) [place] % (Auto) Lymph # [place] # Baso # Seg Neutrophils % Seg Neuts % (Manual) Lymphocytes % (Manual) Monocytes % (Manual) Eosinophils % (Manual) Basophils % (Manual) Nucleated RBC % Seg Neutrophils # Seg Neutrophils # Man Lymphocytes # (Manual) Monocytes # (Manual) Eosinophils # (Manual) Basophils # (Manual) PT INR Fibrinogen dRVVT Confirm Interp Factor V Activity POC ABG pH POC ABG pCO2 POC ABG pO2 ABG pO2 ABG HCO3 ABG Base Excess ABG Hemoglobin Oxyhemoglobin Sodium Potassium Chloride Carbon Dioxide BUN Creatinine Glucose POC Glucose 133 H 141 H Lactic Acid Calcium Phosphorus Magnesium Direct Bilirubin AST ALT Alkaline Phosphatase Lactate Dehydrogenase Troponin T C-Reactive Protein Total Protein Albumin Prealbumin Triglycerides Cholesterol LDL Cholesterol Direct HDL Cholesterol Urine pH Urine WBC (Auto) Urine Creatinine Urine Total Protein Fluid Total Protein Vancomycin Trough Rheumatoid Factor Complement C4 Miscellaneous Test Crossmatch 10/10/16 10/10/16 10/10/16 05:00 05:00 11:19 WBC 18.5 H RBC 2.19 L Hgb 6.4 L Hct 19.6 L* MCV MCH MCHC RDW 19.3 H Plt Count 93 L Lymph % (Auto) [place] % (Auto) Lymph # [place] # Baso # Seg Neutrophils % Seg Neuts % (Manual) Lymphocytes % (Manual) 10.0 L Monocytes % (Manual) Eosinophils % (Manual) Basophils % (Manual) Nucleated RBC % 4.0 H Seg Neutrophils # Seg Neutrophils # Man 11.3 H Lymphocytes # (Manual) Monocytes # (Manual) Eosinophils # (Manual) Basophils # (Manual) PT INR Fibrinogen dRVVT Confirm Interp Factor V Activity POC ABG pH POC ABG pCO2 POC ABG pO2 ABG pO2 ABG HCO3 ABG Base Excess ABG Hemoglobin Oxyhemoglobin Sodium Potassium 5.7 H D Chloride Carbon Dioxide 16 L BUN 94 H Creatinine 3.1 H Glucose 131 H POC Glucose 153 H Lactic Acid Calcium 8.2 L Phosphorus 5.10 H Magnesium 2.40 H Direct Bilirubin 0.3 H AST ALT < 5 L Alkaline Phosphatase 319 H Lactate Dehydrogenase Troponin T C-Reactive Protein Total Protein 5.1 L Albumin 1.0 L Prealbumin Triglycerides Cholesterol LDL Cholesterol Direct HDL Cholesterol Urine pH Urine WBC (Auto) Urine Creatinine Urine Total Protein Fluid Total Protein Vancomycin Trough Rheumatoid Factor Complement C4 Miscellaneous Test Crossmatch 10/10/16 10/10/16 10/11/16 17:50 23:30 04:15 WBC RBC Hgb Hct MCV MCH MCHC RDW Plt Count Lymph % (Auto) [place] % (Auto) Lymph # [place] # Baso # Seg Neutrophils % Seg Neuts % (Manual) Lymphocytes % (Manual) Monocytes % (Manual) Eosinophils % (Manual) Basophils % (Manual) Nucleated RBC % Seg Neutrophils # Seg Neutrophils # Man Lymphocytes # (Manual) Monocytes # (Manual) Eosinophils # (Manual) Basophils # (Manual) PT INR Fibrinogen dRVVT Confirm Interp Factor V Activity POC ABG pH POC ABG pCO2 POC ABG pO2 ABG pO2 ABG HCO3 ABG Base Excess ABG Hemoglobin Oxyhemoglobin Sodium Potassium Chloride 96.4 L Carbon Dioxide 21 L BUN 57 H Creatinine 2.1 H Glucose 151 H POC Glucose 146 H 141 H Lactic Acid Calcium 8.3 L Phosphorus Magnesium Direct Bilirubin AST ALT Alkaline Phosphatase Lactate Dehydrogenase Troponin T C-Reactive Protein Total Protein Albumin Prealbumin Triglycerides Cholesterol LDL Cholesterol Direct HDL Cholesterol Urine pH Urine WBC (Auto) Urine Creatinine Urine Total Protein Fluid Total Protein Vancomycin Trough Rheumatoid Factor Complement C4 Miscellaneous Test Crossmatch 10/11/16 10/11/16 10/11/16 04:15 04:15 05:30 WBC 28.3 H RBC 3.12 L Hgb 9.3 L Hct 28.7 L D MCV MCH MCHC RDW 17.7 H Plt Count 128 L Lymph % (Auto) [place] % (Auto) Lymph # [place] # Baso # Seg Neutrophils % Seg Neuts % (Manual) Lymphocytes % (Manual) Monocytes % (Manual) Eosinophils % (Manual) Basophils % (Manual) Nucleated RBC % Seg Neutrophils # Seg Neutrophils # Man Lymphocytes # (Manual) Monocytes # (Manual) Eosinophils # (Manual) Basophils # (Manual) PT INR Fibrinogen dRVVT Confirm Interp Factor V Activity POC ABG pH POC ABG pCO2 POC ABG pO2 ABG pO2 ABG HCO3 ABG Base Excess ABG Hemoglobin Oxyhemoglobin Sodium Potassium Chloride Carbon Dioxide BUN Creatinine Glucose POC Glucose 167 H Lactic Acid Calcium Phosphorus Magnesium Direct Bilirubin AST ALT Alkaline Phosphatase Lactate Dehydrogenase Troponin T C-Reactive Protein 15.80 H Total Protein Albumin Prealbumin Triglycerides Cholesterol LDL Cholesterol Direct HDL Cholesterol Urine pH Urine WBC (Auto) Urine Creatinine Urine Total Protein Fluid Total Protein Vancomycin Trough Rheumatoid Factor Complement C4 Miscellaneous Test Crossmatch 10/11/16 10/11/16 10/11/16 11:40 15:49 23:57 WBC RBC Hgb Hct MCV MCH MCHC RDW Plt Count Lymph % (Auto) [place] % (Auto) Lymph # [place] # Baso # Seg Neutrophils % Seg Neuts % (Manual) Lymphocytes % (Manual) Monocytes % (Manual) Eosinophils % (Manual) Basophils % (Manual) Nucleated RBC % Seg Neutrophils # Seg Neutrophils # Man Lymphocytes # (Manual) Monocytes # (Manual) Eosinophils # (Manual) Basophils # (Manual) PT INR Fibrinogen dRVVT Confirm Interp Factor V Activity POC ABG pH POC ABG pCO2 POC ABG pO2 ABG pO2 ABG HCO3 ABG Base Excess ABG Hemoglobin Oxyhemoglobin Sodium Potassium Chloride Carbon Dioxide BUN Creatinine Glucose POC Glucose 139 H 168 H 161 H Lactic Acid Calcium Phosphorus Magnesium Direct Bilirubin AST ALT Alkaline Phosphatase Lactate Dehydrogenase Troponin T C-Reactive Protein Total Protein Albumin Prealbumin Triglycerides Cholesterol LDL Cholesterol Direct HDL Cholesterol Urine pH Urine WBC (Auto) Urine Creatinine Urine Total Protein Fluid Total Protein Vancomycin Trough Rheumatoid Factor Complement C4 Miscellaneous Test Crossmatch 10/12/16 10/12/16 10/12/16 04:40 04:40 05:44 WBC 22.5 H RBC 2.88 L Hgb 8.8 L Hct 26.8 L MCV MCH MCHC RDW 17.8 H Plt Count Lymph % (Auto) [place] % (Auto) Lymph # [place] # Baso # Seg Neutrophils % Seg Neuts % (Manual) Lymphocytes % (Manual) Monocytes % (Manual) Eosinophils % (Manual) Basophils % (Manual) Nucleated RBC % Seg Neutrophils # Seg Neutrophils # Man Lymphocytes # (Manual) Monocytes # (Manual) Eosinophils # (Manual) Basophils # (Manual) PT INR Fibrinogen dRVVT Confirm Interp Factor V Activity POC ABG pH POC ABG pCO2 POC ABG pO2 ABG pO2 ABG HCO3 ABG Base Excess ABG Hemoglobin Oxyhemoglobin Sodium 134 L Potassium Chloride 93.0 L Carbon Dioxide BUN 74 H Creatinine 2.5 H Glucose 137 H POC Glucose 158 H Lactic Acid Calcium 8.2 L Phosphorus Magnesium Direct Bilirubin AST ALT Alkaline Phosphatase Lactate Dehydrogenase Troponin T C-Reactive Protein Total Protein Albumin Prealbumin Triglycerides Cholesterol LDL Cholesterol Direct HDL Cholesterol Urine pH Urine WBC (Auto) Urine Creatinine Urine Total Protein Fluid Total Protein Vancomycin Trough Rheumatoid Factor Complement C4 Miscellaneous Test Crossmatch 10/12/16 10/12/16 10/12/16 12:27 18:18 23:46 WBC RBC Hgb Hct MCV MCH MCHC RDW Plt Count Lymph % (Auto) [place] % (Auto) Lymph # [place] # Baso # Seg Neutrophils % Seg Neuts % (Manual) Lymphocytes % (Manual) Monocytes % (Manual) Eosinophils % (Manual) Basophils % (Manual) Nucleated RBC % Seg Neutrophils # Seg Neutrophils # Man Lymphocytes # (Manual) Monocytes # (Manual) Eosinophils # (Manual) Basophils # (Manual) PT INR Fibrinogen dRVVT Confirm Interp Factor V Activity POC ABG pH POC ABG pCO2 POC ABG pO2 ABG pO2 ABG HCO3 ABG Base Excess ABG Hemoglobin Oxyhemoglobin Sodium Potassium Chloride Carbon Dioxide BUN Creatinine Glucose POC Glucose 153 H 140 H 150 H Lactic Acid Calcium Phosphorus Magnesium Direct Bilirubin AST ALT Alkaline Phosphatase Lactate Dehydrogenase Troponin T C-Reactive Protein Total Protein Albumin Prealbumin Triglycerides Cholesterol LDL Cholesterol Direct HDL Cholesterol Urine pH Urine WBC (Auto) Urine Creatinine Urine Total Protein Fluid Total Protein Vancomycin Trough Rheumatoid Factor Complement C4 Miscellaneous Test Crossmatch 10/13/16 10/13/16 10/13/16 06:22 09:20 12:29 WBC RBC Hgb Hct MCV MCH MCHC RDW Plt Count Lymph % (Auto) [place] % (Auto) Lymph # [place] # Baso # Seg Neutrophils % Seg Neuts % (Manual) Lymphocytes % (Manual) Monocytes % (Manual) Eosinophils % (Manual) Basophils % (Manual) Nucleated RBC % Seg Neutrophils # Seg Neutrophils # Man Lymphocytes # (Manual) Monocytes # (Manual) Eosinophils # (Manual) Basophils # (Manual) PT INR Fibrinogen dRVVT Confirm Interp Factor V Activity POC ABG pH POC ABG pCO2 POC ABG pO2 ABG pO2 ABG HCO3 ABG Base Excess ABG Hemoglobin Oxyhemoglobin Sodium Potassium Chloride Carbon Dioxide BUN Creatinine Glucose POC Glucose 165 H 193 H Lactic Acid Calcium Phosphorus Magnesium Direct Bilirubin AST ALT Alkaline Phosphatase Lactate Dehydrogenase Troponin T C-Reactive Protein Total Protein Albumin Prealbumin Triglycerides Cholesterol LDL Cholesterol Direct HDL Cholesterol Urine pH Urine WBC (Auto) Urine Creatinine Urine Total Protein Fluid Total Protein Vancomycin Trough Rheumatoid Factor Complement C4 Miscellaneous Test Flexitest 1 H Crossmatch 10/13/16 10/13/16 10/13/16 18:09 Unknown Unknown WBC 23.4 H RBC 2.83 L Hgb 8.7 L Hct 26.1 L MCV MCH MCHC RDW 18.1 H Plt Count Lymph % (Auto) [place] % (Auto) Lymph # [place] # Baso # Seg Neutrophils % Seg Neuts % (Manual) Lymphocytes % (Manual) Monocytes % (Manual) Eosinophils % (Manual) Basophils % (Manual) Nucleated RBC % Seg Neutrophils # Seg Neutrophils # Man Lymphocytes # (Manual) Monocytes # (Manual) Eosinophils # (Manual) Basophils # (Manual) PT INR Fibrinogen dRVVT Confirm Interp Factor V Activity POC ABG pH POC ABG pCO2 POC ABG pO2 ABG pO2 ABG HCO3 ABG Base Excess ABG Hemoglobin Oxyhemoglobin Sodium Potassium Chloride 95.8 L Carbon Dioxide BUN 82 H Creatinine 2.6 H Glucose 152 H POC Glucose 166 H Lactic Acid Calcium Phosphorus Magnesium Direct Bilirubin AST ALT Alkaline Phosphatase Lactate Dehydrogenase Troponin T C-Reactive Protein Total Protein Albumin Prealbumin Triglycerides Cholesterol LDL Cholesterol Direct HDL Cholesterol Urine pH Urine WBC (Auto) Urine Creatinine Urine Total Protein Fluid Total Protein Vancomycin Trough Rheumatoid Factor Complement C4 Miscellaneous Test Crossmatch 10/14/16 10/14/16 10/14/16 05:38 06:35 08:10 WBC 20.7 H RBC 2.81 L Hgb 8.4 L Hct 27.2 L MCV MCH MCHC RDW 19.4 H Plt Count Lymph % (Auto) [place] % (Auto) Lymph # [place] # Baso # Seg Neutrophils % Seg Neuts % (Manual) Lymphocytes % (Manual) Monocytes % (Manual) Eosinophils % (Manual) Basophils % (Manual) Nucleated RBC % Seg Neutrophils # Seg Neutrophils # Man Lymphocytes # (Manual) Monocytes # (Manual) Eosinophils # (Manual) Basophils # (Manual) PT INR Fibrinogen dRVVT Confirm Interp Factor V Activity POC ABG pH POC ABG pCO2 POC ABG pO2 ABG pO2 ABG HCO3 ABG Base Excess ABG Hemoglobin Oxyhemoglobin Sodium Potassium Chloride Carbon Dioxide BUN 58 H Creatinine 1.9 H Glucose 169 H POC Glucose 195 H Lactic Acid Calcium Phosphorus Magnesium Direct Bilirubin AST ALT Alkaline Phosphatase Lactate Dehydrogenase Troponin T C-Reactive Protein Total Protein Albumin Prealbumin Triglycerides Cholesterol LDL Cholesterol Direct HDL Cholesterol Urine pH Urine WBC (Auto) Urine Creatinine Urine Total Protein Fluid Total Protein Vancomycin Trough Rheumatoid Factor Complement C4 Miscellaneous Test Crossmatch 10/14/16 10/14/16 10/14/16 11:44 17:13 23:28 WBC RBC Hgb Hct MCV MCH MCHC RDW Plt Count Lymph % (Auto) [place] % (Auto) Lymph # [place] # Baso # Seg Neutrophils % Seg Neuts % (Manual) Lymphocytes % (Manual) Monocytes % (Manual) Eosinophils % (Manual) Basophils % (Manual) Nucleated RBC % Seg Neutrophils # Seg Neutrophils # Man Lymphocytes # (Manual) Monocytes # (Manual) Eosinophils # (Manual) Basophils # (Manual) PT INR Fibrinogen dRVVT Confirm Interp Factor V Activity POC ABG pH POC ABG pCO2 POC ABG pO2 ABG pO2 ABG HCO3 ABG Base Excess ABG Hemoglobin Oxyhemoglobin Sodium Potassium Chloride Carbon Dioxide BUN Creatinine Glucose POC Glucose 174 H 121 H 151 H Lactic Acid Calcium Phosphorus Magnesium Direct Bilirubin AST ALT Alkaline Phosphatase Lactate Dehydrogenase Troponin T C-Reactive Protein Total Protein Albumin Prealbumin Triglycerides Cholesterol LDL Cholesterol Direct HDL Cholesterol Urine pH Urine WBC (Auto) Urine Creatinine Urine Total Protein Fluid Total Protein Vancomycin Trough Rheumatoid Factor Complement C4 Miscellaneous Test Crossmatch 10/15/16 10/15/16 10/15/16 05:06 12:26 17:48 WBC RBC Hgb Hct MCV MCH MCHC RDW Plt Count Lymph % (Auto) [place] % (Auto) Lymph # [place] # Baso # Seg Neutrophils % Seg Neuts % (Manual) Lymphocytes % (Manual) Monocytes % (Manual) Eosinophils % (Manual) Basophils % (Manual) Nucleated RBC % Seg Neutrophils # Seg Neutrophils # Man Lymphocytes # (Manual) Monocytes # (Manual) Eosinophils # (Manual) Basophils # (Manual) PT INR Fibrinogen dRVVT Confirm Interp Factor V Activity POC ABG pH POC ABG pCO2 POC ABG pO2 ABG pO2 ABG HCO3 ABG Base Excess ABG Hemoglobin Oxyhemoglobin Sodium Potassium Chloride Carbon Dioxide BUN Creatinine Glucose POC Glucose 151 H 149 H 153 H Lactic Acid Calcium Phosphorus Magnesium Direct Bilirubin AST ALT Alkaline Phosphatase Lactate Dehydrogenase Troponin T C-Reactive Protein Total Protein Albumin Prealbumin Triglycerides Cholesterol LDL Cholesterol Direct HDL Cholesterol Urine pH Urine WBC (Auto) Urine Creatinine Urine Total Protein Fluid Total Protein Vancomycin Trough Rheumatoid Factor Complement C4 Miscellaneous Test Crossmatch 10/15/16 10/15/16 10/16/16 Unknown Unknown 00:02 WBC 23.4 H RBC 2.78 L Hgb 8.5 L Hct 25.7 L MCV MCH MCHC RDW 18.7 H Plt Count Lymph % (Auto) [place] % (Auto) Lymph # [place] # Baso # Seg Neutrophils % Seg Neuts % (Manual) Lymphocytes % (Manual) Monocytes % (Manual) Eosinophils % (Manual) Basophils % (Manual) Nucleated RBC % Seg Neutrophils # Seg Neutrophils # Man Lymphocytes # (Manual) Monocytes # (Manual) Eosinophils # (Manual) Basophils # (Manual) PT INR Fibrinogen dRVVT Confirm Interp Factor V Activity POC ABG pH POC ABG pCO2 POC ABG pO2 ABG pO2 ABG HCO3 ABG Base Excess ABG Hemoglobin Oxyhemoglobin Sodium Potassium Chloride Carbon Dioxide BUN 73 H Creatinine 2.3 H Glucose 120 H POC Glucose 137 H Lactic Acid Calcium Phosphorus Magnesium Direct Bilirubin AST ALT Alkaline Phosphatase Lactate Dehydrogenase Troponin T C-Reactive Protein Total Protein Albumin Prealbumin Triglycerides Cholesterol LDL Cholesterol Direct HDL Cholesterol Urine pH Urine WBC (Auto) Urine Creatinine Urine Total Protein Fluid Total Protein Vancomycin Trough Rheumatoid Factor Complement C4 Miscellaneous Test Crossmatch 10/16/16 10/16/16 10/16/16 05:44 06:25 06:25 WBC 22.5 H RBC 2.76 L Hgb 8.3 L Hct 25.2 L MCV MCH MCHC RDW 18.3 H Plt Count Lymph % (Auto) [place] % (Auto) Lymph # [place] # Baso # Seg Neutrophils % Seg Neuts % (Manual) Lymphocytes % (Manual) Monocytes % (Manual) Eosinophils % (Manual) Basophils % (Manual) Nucleated RBC % Seg Neutrophils # Seg Neutrophils # Man Lymphocytes # (Manual) Monocytes # (Manual) Eosinophils # (Manual) Basophils # (Manual) PT INR Fibrinogen dRVVT Confirm Interp Factor V Activity POC ABG pH POC ABG pCO2 POC ABG pO2 ABG pO2 ABG HCO3 ABG Base Excess ABG Hemoglobin Oxyhemoglobin Sodium Potassium Chloride Carbon Dioxide BUN 92 H Creatinine 3.0 H Glucose 138 H POC Glucose 110 H Lactic Acid Calcium Phosphorus Magnesium Direct Bilirubin AST ALT Alkaline Phosphatase Lactate Dehydrogenase Troponin T C-Reactive Protein Total Protein Albumin Prealbumin Triglycerides Cholesterol LDL Cholesterol Direct HDL Cholesterol Urine pH Urine WBC (Auto) Urine Creatinine Urine Total Protein Fluid Total Protein Vancomycin Trough Rheumatoid Factor Complement C4 Miscellaneous Test Crossmatch 10/16/16 10/16/16 10/16/16 11:27 11:48 17:36 WBC RBC Hgb Hct MCV MCH MCHC RDW Plt Count Lymph % (Auto) [place] % (Auto) Lymph # [place] # Baso # Seg Neutrophils % Seg Neuts % (Manual) Lymphocytes % (Manual) Monocytes % (Manual) Eosinophils % (Manual) Basophils % (Manual) Nucleated RBC % Seg Neutrophils # Seg Neutrophils # Man Lymphocytes # (Manual) Monocytes # (Manual) Eosinophils # (Manual) Basophils # (Manual) PT INR Fibrinogen dRVVT Confirm Interp Factor V Activity POC ABG pH 7.582 H POC ABG pCO2 27.4 L POC ABG pO2 110 H ABG pO2 ABG HCO3 ABG Base Excess ABG Hemoglobin Oxyhemoglobin Sodium Potassium Chloride Carbon Dioxide BUN Creatinine Glucose POC Glucose 121 H 133 H Lactic Acid Calcium Phosphorus Magnesium Direct Bilirubin AST ALT Alkaline Phosphatase Lactate Dehydrogenase Troponin T C-Reactive Protein Total Protein Albumin Prealbumin Triglycerides Cholesterol LDL Cholesterol Direct HDL Cholesterol Urine pH Urine WBC (Auto) Urine Creatinine Urine Total Protein Fluid Total Protein Vancomycin Trough Rheumatoid Factor Complement C4 Miscellaneous Test Crossmatch 10/16/16 10/17/16 10/17/16 20:48 04:24 04:24 WBC 21.4 H RBC 2.72 L Hgb 8.0 L Hct 25.2 L MCV MCH MCHC RDW 18.0 H Plt Count Lymph % (Auto) [place] % (Auto) Lymph # [place] # Baso # Seg Neutrophils % Seg Neuts % (Manual) Lymphocytes % (Manual) Monocytes % (Manual) Eosinophils % (Manual) Basophils % (Manual) Nucleated RBC % Seg Neutrophils # Seg Neutrophils # Man Lymphocytes # (Manual) Monocytes # (Manual) Eosinophils # (Manual) Basophils # (Manual) PT INR Fibrinogen dRVVT Confirm Interp Factor V Activity POC ABG pH 7.561 H POC ABG pCO2 24.4 L POC ABG pO2 77 L ABG pO2 ABG HCO3 ABG Base Excess ABG Hemoglobin Oxyhemoglobin Sodium 148 H Potassium Chloride Carbon Dioxide BUN 104 H Creatinine 3.0 H Glucose 149 H POC Glucose Lactic Acid Calcium Phosphorus Magnesium Direct Bilirubin AST ALT Alkaline Phosphatase 138 H Lactate Dehydrogenase Troponin T C-Reactive Protein Total Protein 6.2 L Albumin 1.5 L Prealbumin Triglycerides Cholesterol LDL Cholesterol Direct HDL Cholesterol Urine pH Urine WBC (Auto) Urine Creatinine Urine Total Protein Fluid Total Protein Vancomycin Trough Rheumatoid Factor Complement C4 Miscellaneous Test Crossmatch 10/17/16 10/17/16 10/17/16 06:02 12:17 17:14 WBC RBC Hgb Hct MCV MCH MCHC RDW Plt Count Lymph % (Auto) [place] % (Auto) Lymph # [place] # Baso # Seg Neutrophils % Seg Neuts % (Manual) Lymphocytes % (Manual) Monocytes % (Manual) Eosinophils % (Manual) Basophils % (Manual) Nucleated RBC % Seg Neutrophils # Seg Neutrophils # Man Lymphocytes # (Manual) Monocytes # (Manual) Eosinophils # (Manual) Basophils # (Manual) PT INR Fibrinogen dRVVT Confirm Interp Factor V Activity POC ABG pH POC ABG pCO2 POC ABG pO2 ABG pO2 ABG HCO3 ABG Base Excess ABG Hemoglobin Oxyhemoglobin Sodium Potassium Chloride Carbon Dioxide BUN Creatinine Glucose POC Glucose 170 H 167 H 126 H Lactic Acid Calcium Phosphorus Magnesium Direct Bilirubin AST ALT Alkaline Phosphatase Lactate Dehydrogenase Troponin T C-Reactive Protein Total Protein Albumin Prealbumin Triglycerides Cholesterol LDL Cholesterol Direct HDL Cholesterol Urine pH Urine WBC (Auto) Urine Creatinine Urine Total Protein Fluid Total Protein Vancomycin Trough Rheumatoid Factor Complement C4 Miscellaneous Test Crossmatch 10/17/16 10/18/16 10/18/16 23:17 04:00 04:00 WBC 20.7 H RBC 2.47 L Hgb 7.4 L Hct 22.9 L MCV MCH MCHC RDW 17.5 H Plt Count Lymph % (Auto) [place] % (Auto) Lymph # [place] # Baso # Seg Neutrophils % Seg Neuts % (Manual) Lymphocytes % (Manual) Monocytes % (Manual) Eosinophils % (Manual) Basophils % (Manual) Nucleated RBC % Seg Neutrophils # Seg Neutrophils # Man Lymphocytes # (Manual) Monocytes # (Manual) Eosinophils # (Manual) Basophils # (Manual) PT INR Fibrinogen dRVVT Confirm Interp Factor V Activity POC ABG pH POC ABG pCO2 POC ABG pO2 ABG pO2 ABG HCO3 ABG Base Excess ABG Hemoglobin Oxyhemoglobin Sodium 149 H Potassium Chloride 107.9 H Carbon Dioxide 20 L BUN 117 H Creatinine 3.2 H Glucose 119 H POC Glucose 121 H Lactic Acid Calcium Phosphorus Magnesium Direct Bilirubin AST ALT Alkaline Phosphatase Lactate Dehydrogenase Troponin T C-Reactive Protein Total Protein Albumin Prealbumin Triglycerides Cholesterol LDL Cholesterol Direct HDL Cholesterol Urine pH Urine WBC (Auto) Urine Creatinine Urine Total Protein Fluid Total Protein Vancomycin Trough Rheumatoid Factor Complement C4 Miscellaneous Test Crossmatch 10/18/16 10/18/16 10/18/16 05:23 10:46 17:30 WBC RBC Hgb Hct MCV MCH MCHC RDW Plt Count Lymph % (Auto) [place] % (Auto) Lymph # [place] # Baso # Seg Neutrophils % Seg Neuts % (Manual) Lymphocytes % (Manual) Monocytes % (Manual) Eosinophils % (Manual) Basophils % (Manual) Nucleated RBC % Seg Neutrophils # Seg Neutrophils # Man Lymphocytes # (Manual) Monocytes # (Manual) Eosinophils # (Manual) Basophils # (Manual) PT INR Fibrinogen dRVVT Confirm Interp Factor V Activity POC ABG pH POC ABG pCO2 POC ABG pO2 ABG pO2 ABG HCO3 ABG Base Excess ABG Hemoglobin Oxyhemoglobin Sodium Potassium Chloride Carbon Dioxide BUN Creatinine Glucose POC Glucose 119 H 155 H 124 H Lactic Acid Calcium Phosphorus Magnesium Direct Bilirubin AST ALT Alkaline Phosphatase Lactate Dehydrogenase Troponin T C-Reactive Protein Total Protein Albumin Prealbumin Triglycerides Cholesterol LDL Cholesterol Direct HDL Cholesterol Urine pH Urine WBC (Auto) Urine Creatinine Urine Total Protein Fluid Total Protein Vancomycin Trough Rheumatoid Factor Complement C4 Miscellaneous Test Crossmatch 10/19/16 10/19/16 10/19/16 04:00 04:00 05:25 WBC 17.4 H RBC 2.54 L Hgb 7.7 L Hct 23.6 L MCV MCH MCHC RDW 17.3 H Plt Count Lymph % (Auto) [place] % (Auto) Lymph # [place] # Baso # Seg Neutrophils % Seg Neuts % (Manual) Lymphocytes % (Manual) Monocytes % (Manual) Eosinophils % (Manual) Basophils % (Manual) Nucleated RBC % Seg Neutrophils # Seg Neutrophils # Man Lymphocytes # (Manual) Monocytes # (Manual) Eosinophils # (Manual) Basophils # (Manual) PT INR Fibrinogen dRVVT Confirm Interp Factor V Activity POC ABG pH POC ABG pCO2 POC ABG pO2 ABG pO2 ABG HCO3 ABG Base Excess ABG Hemoglobin Oxyhemoglobin Sodium Potassium Chloride Carbon Dioxide BUN 72 H Creatinine 2.1 H Glucose 116 H POC Glucose 119 H Lactic Acid Calcium Phosphorus Magnesium Direct Bilirubin AST ALT Alkaline Phosphatase Lactate Dehydrogenase Troponin T C-Reactive Protein Total Protein Albumin Prealbumin Triglycerides Cholesterol LDL Cholesterol Direct HDL Cholesterol Urine pH Urine WBC (Auto) Urine Creatinine Urine Total Protein Fluid Total Protein Vancomycin Trough Rheumatoid Factor Complement C4 Miscellaneous Test Crossmatch 10/19/16 10/19/16 10/20/16 11:46 23:59 06:00 WBC RBC Hgb Hct MCV MCH MCHC RDW Plt Count Lymph % (Auto) [place] % (Auto) Lymph # [place] # Baso # Seg Neutrophils % Seg Neuts % (Manual) Lymphocytes % (Manual) Monocytes % (Manual) Eosinophils % (Manual) Basophils % (Manual) Nucleated RBC % Seg Neutrophils # Seg Neutrophils # Man Lymphocytes # (Manual) Monocytes # (Manual) Eosinophils # (Manual) Basophils # (Manual) PT INR Fibrinogen dRVVT Confirm Interp Factor V Activity POC ABG pH POC ABG pCO2 POC ABG pO2 ABG pO2 ABG HCO3 ABG Base Excess ABG Hemoglobin Oxyhemoglobin Sodium Potassium Chloride Carbon Dioxide 17 L BUN 94 H Creatinine 2.7 H Glucose POC Glucose 116 H 117 H Lactic Acid Calcium Phosphorus Magnesium Direct Bilirubin AST ALT Alkaline Phosphatase Lactate Dehydrogenase Troponin T C-Reactive Protein Total Protein Albumin Prealbumin Triglycerides Cholesterol LDL Cholesterol Direct HDL Cholesterol Urine pH Urine WBC (Auto) Urine Creatinine Urine Total Protein Fluid Total Protein Vancomycin Trough Rheumatoid Factor Complement C4 Miscellaneous Test Crossmatch 10/20/16 10/20/16 10/20/16 06:00 11:49 16:00 WBC 19.7 H RBC 2.51 L Hgb 7.7 L Hct 23.5 L MCV MCH MCHC RDW 17.5 H Plt Count Lymph % (Auto) [place] % (Auto) Lymph # [place] # Baso # Seg Neutrophils % Seg Neuts % (Manual) Lymphocytes % (Manual) Monocytes % (Manual) Eosinophils % (Manual) Basophils % (Manual) Nucleated RBC % Seg Neutrophils # Seg Neutrophils # Man Lymphocytes # (Manual) Monocytes # (Manual) Eosinophils # (Manual) Basophils # (Manual) PT INR Fibrinogen dRVVT Confirm Interp Factor V Activity POC ABG pH POC ABG pCO2 POC ABG pO2 ABG pO2 ABG HCO3 ABG Base Excess ABG Hemoglobin Oxyhemoglobin Sodium Potassium Chloride Carbon Dioxide BUN Creatinine Glucose POC Glucose 117 H Lactic Acid Calcium Phosphorus Magnesium Direct Bilirubin AST ALT Alkaline Phosphatase Lactate Dehydrogenase Troponin T C-Reactive Protein Total Protein Albumin Prealbumin Triglycerides Cholesterol LDL Cholesterol Direct HDL Cholesterol Urine pH Urine WBC (Auto) Urine Creatinine Urine Total Protein Fluid Total Protein Vancomycin Trough Rheumatoid Factor Complement C4 Miscellaneous Test Flexitest 1 H Crossmatch 10/20/16 10/20/16 10/21/16 18:36 23:39 04:00 WBC RBC Hgb Hct MCV MCH MCHC RDW Plt Count Lymph % (Auto) [place] % (Auto) Lymph # [place] # Baso # Seg Neutrophils % Seg Neuts % (Manual) Lymphocytes % (Manual) Monocytes % (Manual) Eosinophils % (Manual) Basophils % (Manual) Nucleated RBC % Seg Neutrophils # Seg Neutrophils # Man Lymphocytes # (Manual) Monocytes # (Manual) Eosinophils # (Manual) Basophils # (Manual) PT INR Fibrinogen dRVVT Confirm Interp Factor V Activity POC ABG pH POC ABG pCO2 POC ABG pO2 ABG pO2 ABG HCO3 ABG Base Excess ABG Hemoglobin Oxyhemoglobin Sodium Potassium 5.4 H D Chloride Carbon Dioxide 15 L BUN 110 H Creatinine 3.0 H Glucose POC Glucose 127 H 114 H Lactic Acid Calcium Phosphorus Magnesium Direct Bilirubin AST ALT Alkaline Phosphatase Lactate Dehydrogenase Troponin T C-Reactive Protein Total Protein Albumin Prealbumin Triglycerides Cholesterol LDL Cholesterol Direct HDL Cholesterol Urine pH Urine WBC (Auto) Urine Creatinine Urine Total Protein Fluid Total Protein Vancomycin Trough Rheumatoid Factor Complement C4 Miscellaneous Test Crossmatch 10/21/16 10/21/16 10/22/16 05:54 23:46 05:18 WBC RBC Hgb Hct MCV MCH MCHC RDW Plt Count Lymph % (Auto) [place] % (Auto) Lymph # [place] # Baso # Seg Neutrophils % Seg Neuts % (Manual) Lymphocytes % (Manual) Monocytes % (Manual) Eosinophils % (Manual) Basophils % (Manual) Nucleated RBC % Seg Neutrophils # Seg Neutrophils # Man Lymphocytes # (Manual) Monocytes # (Manual) Eosinophils # (Manual) Basophils # (Manual) PT INR Fibrinogen dRVVT Confirm Interp Factor V Activity POC ABG pH POC ABG pCO2 POC ABG pO2 ABG pO2 ABG HCO3 ABG Base Excess ABG Hemoglobin Oxyhemoglobin Sodium Potassium Chloride Carbon Dioxide BUN Creatinine Glucose POC Glucose 119 H 108 H 109 H Lactic Acid Calcium Phosphorus Magnesium Direct Bilirubin AST ALT Alkaline Phosphatase Lactate Dehydrogenase Troponin T C-Reactive Protein Total Protein Albumin Prealbumin Triglycerides Cholesterol LDL Cholesterol Direct HDL Cholesterol Urine pH Urine WBC (Auto) Urine Creatinine Urine Total Protein Fluid Total Protein Vancomycin Trough Rheumatoid Factor Complement C4 Miscellaneous Test Crossmatch 10/22/16 10/22/16 10/22/16 06:40 06:40 06:40 WBC 14.0 H RBC 2.03 L Hgb 7.0 L Hct 20.5 L MCV 98 H MCH 34 H MCHC 35 H RDW 17.8 H Plt Count Lymph % (Auto) [place] % (Auto) 9.9 H Lymph # [place] # 1.4 H Baso # 0.2 H Seg Neutrophils % 72.0 H Seg Neuts % (Manual) Lymphocytes % (Manual) Monocytes % (Manual) Eosinophils % (Manual) Basophils % (Manual) Nucleated RBC % Seg Neutrophils # 10.0 H Seg Neutrophils # Man Lymphocytes # (Manual) Monocytes # (Manual) Eosinophils # (Manual) Basophils # (Manual) PT INR Fibrinogen dRVVT Confirm Interp Factor V Activity POC ABG pH POC ABG pCO2 POC ABG pO2 ABG pO2 ABG HCO3 ABG Base Excess ABG Hemoglobin Oxyhemoglobin Sodium 130 L D Potassium Chloride 92.4 L Carbon Dioxide 20 L BUN 50 H Creatinine 1.6 H Glucose 589 H* POC Glucose Lactic Acid Calcium 7.8 L D Phosphorus Magnesium 1.60 L Direct Bilirubin AST ALT Alkaline Phosphatase Lactate Dehydrogenase Troponin T C-Reactive Protein Total Protein Albumin Prealbumin Triglycerides Cholesterol LDL Cholesterol Direct HDL Cholesterol Urine pH Urine WBC (Auto) Urine Creatinine Urine Total Protein Fluid Total Protein Vancomycin Trough Rheumatoid Factor Complement C4 Miscellaneous Test Crossmatch 10/22/16 10/22/16 10/22/16 11:39 16:44 23:36 WBC RBC Hgb Hct MCV MCH MCHC RDW Plt Count Lymph % (Auto) [place] % (Auto) Lymph # [place] # Baso # Seg Neutrophils % Seg Neuts % (Manual) Lymphocytes % (Manual) Monocytes % (Manual) Eosinophils % (Manual) Basophils % (Manual) Nucleated RBC % Seg Neutrophils # Seg Neutrophils # Man Lymphocytes # (Manual) Monocytes # (Manual) Eosinophils # (Manual) Basophils # (Manual) PT INR Fibrinogen dRVVT Confirm Interp Factor V Activity POC ABG pH POC ABG pCO2 POC ABG pO2 ABG pO2 ABG HCO3 ABG Base Excess ABG Hemoglobin Oxyhemoglobin Sodium Potassium Chloride Carbon Dioxide BUN Creatinine Glucose POC Glucose 142 H 163 H 123 H Lactic Acid Calcium Phosphorus Magnesium Direct Bilirubin AST ALT Alkaline Phosphatase Lactate Dehydrogenase Troponin T C-Reactive Protein Total Protein Albumin Prealbumin Triglycerides Cholesterol LDL Cholesterol Direct HDL Cholesterol Urine pH Urine WBC (Auto) Urine Creatinine Urine Total Protein Fluid Total Protein Vancomycin Trough Rheumatoid Factor Complement C4 Miscellaneous Test Crossmatch 10/23/16 10/23/16 10/23/16 04:58 06:00 12:12 WBC RBC Hgb Hct MCV MCH MCHC RDW Plt Count Lymph % (Auto) [place] % (Auto) Lymph # [place] # Baso # Seg Neutrophils % Seg Neuts % (Manual) Lymphocytes % (Manual) Monocytes % (Manual) Eosinophils % (Manual) Basophils % (Manual) Nucleated RBC % Seg Neutrophils # Seg Neutrophils # Man Lymphocytes # (Manual) Monocytes # (Manual) Eosinophils # (Manual) Basophils # (Manual) PT INR Fibrinogen dRVVT Confirm Interp Factor V Activity POC ABG pH POC ABG pCO2 POC ABG pO2 ABG pO2 ABG HCO3 ABG Base Excess ABG Hemoglobin Oxyhemoglobin Sodium 133 L Potassium 3.5 L Chloride 96.1 L Carbon Dioxide 18 L BUN 76 H Creatinine 2.1 H Glucose POC Glucose 133 H 138 H Lactic Acid Calcium 8.3 L Phosphorus Magnesium Direct Bilirubin AST ALT Alkaline Phosphatase Lactate Dehydrogenase Troponin T C-Reactive Protein Total Protein Albumin Prealbumin Triglycerides Cholesterol LDL Cholesterol Direct HDL Cholesterol Urine pH Urine WBC (Auto) Urine Creatinine Urine Total Protein Fluid Total Protein Vancomycin Trough Rheumatoid Factor Complement C4 Miscellaneous Test Crossmatch 10/23/16 10/23/16 10/24/16 16:53 23:37 04:00 WBC RBC Hgb Hct MCV MCH MCHC RDW Plt Count Lymph % (Auto) [place] % (Auto) Lymph # [place] # Baso # Seg Neutrophils % Seg Neuts % (Manual) Lymphocytes % (Manual) Monocytes % (Manual) Eosinophils % (Manual) Basophils % (Manual) Nucleated RBC % Seg Neutrophils # Seg Neutrophils # Man Lymphocytes # (Manual) Monocytes # (Manual) Eosinophils # (Manual) Basophils # (Manual) PT INR Fibrinogen dRVVT Confirm Interp Factor V Activity POC ABG pH POC ABG pCO2 POC ABG pO2 ABG pO2 ABG HCO3 ABG Base Excess ABG Hemoglobin Oxyhemoglobin Sodium 131 L Potassium Chloride 94.5 L Carbon Dioxide 19 L BUN 97 H Creatinine 2.6 H Glucose 110 H POC Glucose 125 H 123 H Lactic Acid Calcium 8.3 L Phosphorus Magnesium Direct Bilirubin AST ALT Alkaline Phosphatase Lactate Dehydrogenase Troponin T C-Reactive Protein Total Protein Albumin Prealbumin Triglycerides Cholesterol LDL Cholesterol Direct HDL Cholesterol Urine pH Urine WBC (Auto) Urine Creatinine Urine Total Protein Fluid Total Protein Vancomycin Trough Rheumatoid Factor Complement C4 Miscellaneous Test Crossmatch 10/24/16 10/24/16 10/24/16 07:49 11:39 17:52 WBC RBC Hgb 6.0 L Hct 19.7 L* MCV MCH MCHC RDW Plt Count Lymph % (Auto) [place] % (Auto) Lymph # [place] # Baso # Seg Neutrophils % Seg Neuts % (Manual) Lymphocytes % (Manual) Monocytes % (Manual) Eosinophils % (Manual) Basophils % (Manual) Nucleated RBC % Seg Neutrophils # Seg Neutrophils # Man Lymphocytes # (Manual) Monocytes # (Manual) Eosinophils # (Manual) Basophils # (Manual) PT INR Fibrinogen dRVVT Confirm Interp Factor V Activity POC ABG pH POC ABG pCO2 POC ABG pO2 ABG pO2 ABG HCO3 ABG Base Excess ABG Hemoglobin Oxyhemoglobin Sodium Potassium Chloride Carbon Dioxide BUN Creatinine Glucose POC Glucose 106 H 158 H Lactic Acid Calcium Phosphorus Magnesium Direct Bilirubin AST ALT Alkaline Phosphatase Lactate Dehydrogenase Troponin T C-Reactive Protein Total Protein Albumin Prealbumin Triglycerides Cholesterol LDL Cholesterol Direct HDL Cholesterol Urine pH Urine WBC (Auto) Urine Creatinine Urine Total Protein Fluid Total Protein Vancomycin Trough Rheumatoid Factor Complement C4 Miscellaneous Test Crossmatch 10/24/16 10/24/16 10/24/16 20:00 22:27 Unknown WBC RBC Hgb 9.4 L D Hct 27.5 L D MCV MCH MCHC RDW Plt Count Lymph % (Auto) [place] % (Auto) Lymph # [place] # Baso # Seg Neutrophils % Seg Neuts % (Manual) Lymphocytes % (Manual) Monocytes % (Manual) Eosinophils % (Manual) Basophils % (Manual) Nucleated RBC % Seg Neutrophils # Seg Neutrophils # Man Lymphocytes # (Manual) Monocytes # (Manual) Eosinophils # (Manual) Basophils # (Manual) PT INR Fibrinogen dRVVT Confirm Interp Factor V Activity POC ABG pH POC ABG pCO2 POC ABG pO2 ABG pO2 ABG HCO3 ABG Base Excess ABG Hemoglobin Oxyhemoglobin Sodium Potassium Chloride Carbon Dioxide BUN Creatinine Glucose POC Glucose 125 H Lactic Acid Calcium Phosphorus Magnesium Direct Bilirubin AST ALT Alkaline Phosphatase Lactate Dehydrogenase Troponin T C-Reactive Protein Total Protein Albumin Prealbumin Triglycerides Cholesterol LDL Cholesterol Direct HDL Cholesterol Urine pH Urine WBC (Auto) Urine Creatinine Urine Total Protein Fluid Total Protein Vancomycin Trough Rheumatoid Factor Complement C4 Miscellaneous Test Crossmatch See Detail 10/25/16 10/25/16 10/25/16 04:00 04:00 04:00 WBC 14.2 H RBC 2.98 L Hgb 9.0 L Hct 26.2 L MCV MCH MCHC RDW 16.6 H Plt Count Lymph % (Auto) [place] % (Auto) 10.7 H Lymph # [place] # 1.5 H Baso # Seg Neutrophils % 73.6 H Seg Neuts % (Manual) Lymphocytes % (Manual) Monocytes % (Manual) Eosinophils % (Manual) Basophils % (Manual) Nucleated RBC % Seg Neutrophils # 10.5 H Seg Neutrophils # Man Lymphocytes # (Manual) Monocytes # (Manual) Eosinophils # (Manual) Basophils # (Manual) PT INR Fibrinogen dRVVT Confirm Interp Factor V Activity POC ABG pH POC ABG pCO2 POC ABG pO2 ABG pO2 ABG HCO3 ABG Base Excess ABG Hemoglobin Oxyhemoglobin Sodium 132 L Potassium Chloride 94.7 L Carbon Dioxide BUN 51 H Creatinine 1.6 H Glucose 130 H POC Glucose Lactic Acid Calcium 8.3 L Phosphorus 1.60 L D Magnesium Direct Bilirubin AST ALT Alkaline Phosphatase Lactate Dehydrogenase Troponin T C-Reactive Protein Total Protein Albumin Prealbumin Triglycerides Cholesterol LDL Cholesterol Direct HDL Cholesterol Urine pH Urine WBC (Auto) Urine Creatinine Urine Total Protein Fluid Total Protein Vancomycin Trough Rheumatoid Factor Complement C4 Miscellaneous Test Crossmatch 10/25/16 10/25/16 10/25/16 04:32 11:48 17:22 WBC RBC Hgb Hct MCV MCH MCHC RDW Plt Count Lymph % (Auto) [place] % (Auto) Lymph # [place] # Baso # Seg Neutrophils % Seg Neuts % (Manual) Lymphocytes % (Manual) Monocytes % (Manual) Eosinophils % (Manual) Basophils % (Manual) Nucleated RBC % Seg Neutrophils # Seg Neutrophils # Man Lymphocytes # (Manual) Monocytes # (Manual) Eosinophils # (Manual) Basophils # (Manual) PT INR Fibrinogen dRVVT Confirm Interp Factor V Activity POC ABG pH POC ABG pCO2 POC ABG pO2 ABG pO2 ABG HCO3 ABG Base Excess ABG Hemoglobin Oxyhemoglobin Sodium Potassium Chloride Carbon Dioxide BUN Creatinine Glucose POC Glucose 124 H 171 H 120 H Lactic Acid Calcium Phosphorus Magnesium Direct Bilirubin AST ALT Alkaline Phosphatase Lactate Dehydrogenase Troponin T C-Reactive Protein Total Protein Albumin Prealbumin Triglycerides Cholesterol LDL Cholesterol Direct HDL Cholesterol Urine pH Urine WBC (Auto) Urine Creatinine Urine Total Protein Fluid Total Protein Vancomycin Trough Rheumatoid Factor Complement C4 Miscellaneous Test Crossmatch 10/26/16 10/26/16 10/26/16 04:54 07:06 07:06 WBC 16.9 H RBC 3.06 L Hgb 9.1 L Hct 26.9 L MCV MCH MCHC RDW 16.9 H Plt Count Lymph % (Auto) [place] % (Auto) Lymph # [place] # Baso # Seg Neutrophils % Seg Neuts % (Manual) 71.0 H Lymphocytes % (Manual) 5.0 L Monocytes % (Manual) 12.0 H Eosinophils % (Manual) Basophils % (Manual) Nucleated RBC % Seg Neutrophils # Seg Neutrophils # Man 12.0 H Lymphocytes # (Manual) 0.8 L Monocytes # (Manual) 2.0 H Eosinophils # (Manual) Basophils # (Manual) PT INR Fibrinogen dRVVT Confirm Interp Factor V Activity POC ABG pH POC ABG pCO2 POC ABG pO2 ABG pO2 ABG HCO3 ABG Base Excess ABG Hemoglobin Oxyhemoglobin Sodium 135 L Potassium Chloride 97.1 L Carbon Dioxide BUN 73 H Creatinine 2.2 H Glucose 117 H POC Glucose 123 H Lactic Acid Calcium Phosphorus 1.70 L Magnesium Direct Bilirubin AST ALT Alkaline Phosphatase Lactate Dehydrogenase Troponin T C-Reactive Protein Total Protein Albumin Prealbumin Triglycerides Cholesterol LDL Cholesterol Direct HDL Cholesterol Urine pH Urine WBC (Auto) Urine Creatinine Urine Total Protein Fluid Total Protein Vancomycin Trough Rheumatoid Factor Complement C4 Miscellaneous Test Crossmatch 10/26/16 10/26/16 10/26/16 12:12 17:29 23:42 WBC RBC Hgb Hct MCV MCH MCHC RDW Plt Count Lymph % (Auto) [place] % (Auto) Lymph # [place] # Baso # Seg Neutrophils % Seg Neuts % (Manual) Lymphocytes % (Manual) Monocytes % (Manual) Eosinophils % (Manual) Basophils % (Manual) Nucleated RBC % Seg Neutrophils # Seg Neutrophils # Man Lymphocytes # (Manual) Monocytes # (Manual) Eosinophils # (Manual) Basophils # (Manual) PT INR Fibrinogen dRVVT Confirm Interp Factor V Activity POC ABG pH POC ABG pCO2 POC ABG pO2 ABG pO2 ABG HCO3 ABG Base Excess ABG Hemoglobin Oxyhemoglobin Sodium Potassium Chloride Carbon Dioxide BUN Creatinine Glucose POC Glucose 126 H 161 H 118 H Lactic Acid Calcium Phosphorus Magnesium Direct Bilirubin AST ALT Alkaline Phosphatase Lactate Dehydrogenase Troponin T C-Reactive Protein Total Protein Albumin Prealbumin Triglycerides Cholesterol LDL Cholesterol Direct HDL Cholesterol Urine pH Urine WBC (Auto) Urine Creatinine Urine Total Protein Fluid Total Protein Vancomycin Trough Rheumatoid Factor Complement C4 Miscellaneous Test Crossmatch 10/27/16 10/27/16 10/27/16 05:03 06:30 06:30 WBC 13.9 H RBC 3.09 L Hgb 9.2 L Hct 27.5 L MCV MCH MCHC RDW 17.0 H Plt Count Lymph % (Auto) [place] % (Auto) Lymph # [place] # Baso # Seg Neutrophils % Seg Neuts % (Manual) 78.0 H Lymphocytes % (Manual) Monocytes % (Manual) Eosinophils % (Manual) Basophils % (Manual) Nucleated RBC % 2.0 H Seg Neutrophils # Seg Neutrophils # Man 10.8 H Lymphocytes # (Manual) Monocytes # (Manual) 1.0 H Eosinophils # (Manual) Basophils # (Manual) PT INR Fibrinogen dRVVT Confirm Interp Factor V Activity POC ABG pH POC ABG pCO2 POC ABG pO2 ABG pO2 ABG HCO3 ABG Base Excess ABG Hemoglobin Oxyhemoglobin Sodium Potassium Chloride Carbon Dioxide BUN 40 H Creatinine 1.5 H Glucose 135 H POC Glucose 107 H Lactic Acid Calcium 8.3 L Phosphorus 1.30 L D Magnesium Direct Bilirubin AST ALT Alkaline Phosphatase Lactate Dehydrogenase Troponin T C-Reactive Protein Total Protein Albumin Prealbumin Triglycerides Cholesterol LDL Cholesterol Direct HDL Cholesterol Urine pH Urine WBC (Auto) Urine Creatinine Urine Total Protein Fluid Total Protein Vancomycin Trough Rheumatoid Factor Complement C4 Miscellaneous Test Crossmatch 10/27/16 10/27/16 10/27/16 13:27 18:07 23:40 WBC RBC Hgb Hct MCV MCH MCHC RDW Plt Count Lymph % (Auto) [place] % (Auto) Lymph # [place] # Baso # Seg Neutrophils % Seg Neuts % (Manual) Lymphocytes % (Manual) Monocytes % (Manual) Eosinophils % (Manual) Basophils % (Manual) Nucleated RBC % Seg Neutrophils # Seg Neutrophils # Man Lymphocytes # (Manual) Monocytes # (Manual) Eosinophils # (Manual) Basophils # (Manual) PT INR Fibrinogen dRVVT Confirm Interp Factor V Activity POC ABG pH POC ABG pCO2 POC ABG pO2 ABG pO2 ABG HCO3 ABG Base Excess ABG Hemoglobin Oxyhemoglobin Sodium Potassium Chloride Carbon Dioxide BUN Creatinine Glucose POC Glucose 117 H 121 H 118 H Lactic Acid Calcium Phosphorus Magnesium Direct Bilirubin AST ALT Alkaline Phosphatase Lactate Dehydrogenase Troponin T C-Reactive Protein Total Protein Albumin Prealbumin Triglycerides Cholesterol LDL Cholesterol Direct HDL Cholesterol Urine pH Urine WBC (Auto) Urine Creatinine Urine Total Protein Fluid Total Protein Vancomycin Trough Rheumatoid Factor Complement C4 Miscellaneous Test Crossmatch 10/28/16 10/28/16 10/28/16 05:48 06:45 06:45 WBC 14.7 H RBC 3.05 L Hgb 9.0 L Hct 26.9 L MCV MCH MCHC RDW 16.8 H Plt Count Lymph % (Auto) 8.2 L [place] % (Auto) 8.4 H Lymph # [place] # 1.2 H Baso # Seg Neutrophils % 81.9 H Seg Neuts % (Manual) Lymphocytes % (Manual) Monocytes % (Manual) Eosinophils % (Manual) Basophils % (Manual) Nucleated RBC % Seg Neutrophils # 12.1 H Seg Neutrophils # Man Lymphocytes # (Manual) Monocytes # (Manual) Eosinophils # (Manual) Basophils # (Manual) PT INR Fibrinogen dRVVT Confirm Interp Factor V Activity POC ABG pH POC ABG pCO2 POC ABG pO2 ABG pO2 ABG HCO3 ABG Base Excess ABG Hemoglobin Oxyhemoglobin Sodium Potassium Chloride Carbon Dioxide BUN 60 H Creatinine 1.9 H Glucose 120 H POC Glucose 114 H Lactic Acid Calcium Phosphorus Magnesium Direct Bilirubin AST ALT Alkaline Phosphatase Lactate Dehydrogenase Troponin T C-Reactive Protein Total Protein Albumin Prealbumin Triglycerides Cholesterol LDL Cholesterol Direct HDL Cholesterol Urine pH Urine WBC (Auto) Urine Creatinine Urine Total Protein Fluid Total Protein Vancomycin Trough Rheumatoid Factor Complement C4 Miscellaneous Test Crossmatch 10/28/16 10/28/16 10/29/16 17:08 23:50 05:10 WBC RBC Hgb Hct MCV MCH MCHC RDW Plt Count Lymph % (Auto) [place] % (Auto) Lymph # [place] # Baso # Seg Neutrophils % Seg Neuts % (Manual) Lymphocytes % (Manual) Monocytes % (Manual) Eosinophils % (Manual) Basophils % (Manual) Nucleated RBC % Seg Neutrophils # Seg Neutrophils # Man Lymphocytes # (Manual) Monocytes # (Manual) Eosinophils # (Manual) Basophils # (Manual) PT INR Fibrinogen dRVVT Confirm Interp Factor V Activity POC ABG pH POC ABG pCO2 POC ABG pO2 ABG pO2 ABG HCO3 ABG Base Excess ABG Hemoglobin Oxyhemoglobin Sodium Potassium Chloride Carbon Dioxide BUN Creatinine Glucose POC Glucose 109 H 110 H 124 H Lactic Acid Calcium Phosphorus Magnesium Direct Bilirubin AST ALT Alkaline Phosphatase Lactate Dehydrogenase Troponin T C-Reactive Protein Total Protein Albumin Prealbumin Triglycerides Cholesterol LDL Cholesterol Direct HDL Cholesterol Urine pH Urine WBC (Auto) Urine Creatinine Urine Total Protein Fluid Total Protein Vancomycin Trough Rheumatoid Factor Complement C4 Miscellaneous Test Crossmatch 10/29/16 10/29/16 10/29/16 07:45 07:45 12:19 WBC 14.7 H RBC 3.15 L Hgb 9.3 L Hct 28.9 L MCV MCH MCHC RDW 17.0 H Plt Count Lymph % (Auto) 11.9 L [place] % (Auto) 8.6 H Lymph # [place] # 1.3 H Baso # Seg Neutrophils % 78.1 H Seg Neuts % (Manual) Lymphocytes % (Manual) Monocytes % (Manual) Eosinophils % (Manual) Basophils % (Manual) Nucleated RBC % Seg Neutrophils # 11.4 H Seg Neutrophils # Man Lymphocytes # (Manual) Monocytes # (Manual) Eosinophils # (Manual) Basophils # (Manual) PT INR Fibrinogen dRVVT Confirm Interp Factor V Activity POC ABG pH POC ABG pCO2 POC ABG pO2 ABG pO2 ABG HCO3 ABG Base Excess ABG Hemoglobin Oxyhemoglobin Sodium Potassium 5.1 H Chloride Carbon Dioxide 19 L BUN 78 H Creatinine 2.2 H Glucose 116 H POC Glucose 118 H Lactic Acid Calcium Phosphorus Magnesium Direct Bilirubin AST ALT Alkaline Phosphatase Lactate Dehydrogenase Troponin T C-Reactive Protein Total Protein Albumin Prealbumin Triglycerides Cholesterol LDL Cholesterol Direct HDL Cholesterol Urine pH Urine WBC (Auto) Urine Creatinine Urine Total Protein Fluid Total Protein Vancomycin Trough Rheumatoid Factor Complement C4 Miscellaneous Test Crossmatch 10/29/16 10/30/16 10/30/16 17:49 01:52 03:28 WBC RBC Hgb Hct MCV MCH MCHC RDW Plt Count Lymph % (Auto) [place] % (Auto) Lymph # [place] # Baso # Seg Neutrophils % Seg Neuts % (Manual) Lymphocytes % (Manual) Monocytes % (Manual) Eosinophils % (Manual) Basophils % (Manual) Nucleated RBC % Seg Neutrophils # Seg Neutrophils # Man Lymphocytes # (Manual) Monocytes # (Manual) Eosinophils # (Manual) Basophils # (Manual) PT INR Fibrinogen dRVVT Confirm Interp Factor V Activity POC ABG pH POC ABG pCO2 POC ABG pO2 ABG pO2 ABG HCO3 ABG Base Excess ABG Hemoglobin Oxyhemoglobin Sodium Potassium 5.4 H Chloride 97.5 L Carbon Dioxide 19 L BUN 90 H Creatinine 2.5 H Glucose POC Glucose 120 H 129 H Lactic Acid Calcium Phosphorus 5.20 H Magnesium Direct Bilirubin AST ALT Alkaline Phosphatase Lactate Dehydrogenase Troponin T C-Reactive Protein Total Protein Albumin Prealbumin Triglycerides Cholesterol LDL Cholesterol Direct HDL Cholesterol Urine pH Urine WBC (Auto) Urine Creatinine Urine Total Protein Fluid Total Protein Vancomycin Trough Rheumatoid Factor Complement C4 Miscellaneous Test Crossmatch 10/30/16 10/30/16 10/30/16 03:28 08:19 08:19 WBC 11.6 H 15.9 H RBC 2.75 L 2.82 L Hgb 7.9 L 8.3 L Hct 24.2 L 25.2 L MCV MCH MCHC RDW 16.7 H 17.2 H Plt Count Lymph % (Auto) [place] % (Auto) 9.8 H Lymph # [place] # 1.1 H Baso # Seg Neutrophils % 74.2 H Seg Neuts % (Manual) Lymphocytes % (Manual) Monocytes % (Manual) Eosinophils % (Manual) Basophils % (Manual) Nucleated RBC % Seg Neutrophils # 8.6 H Seg Neutrophils # Man Lymphocytes # (Manual) Monocytes # (Manual) Eosinophils # (Manual) Basophils # (Manual) PT INR Fibrinogen dRVVT Confirm Interp Factor V Activity POC ABG pH POC ABG pCO2 POC ABG pO2 ABG pO2 ABG HCO3 ABG Base Excess ABG Hemoglobin Oxyhemoglobin Sodium Potassium 5.3 H Chloride 97.4 L Carbon Dioxide 19 L BUN 93 H Creatinine 2.6 H Glucose POC Glucose Lactic Acid Calcium Phosphorus Magnesium Direct Bilirubin AST ALT Alkaline Phosphatase Lactate Dehydrogenase Troponin T C-Reactive Protein Total Protein Albumin Prealbumin Triglycerides Cholesterol LDL Cholesterol Direct HDL Cholesterol Urine pH Urine WBC (Auto) Urine Creatinine Urine Total Protein Fluid Total Protein Vancomycin Trough Rheumatoid Factor Complement C4 Miscellaneous Test Crossmatch 10/30/16 10/30/16 10/31/16 17:11 23:56 00:40 WBC RBC Hgb Hct MCV MCH MCHC RDW Plt Count Lymph % (Auto) [place] % (Auto) Lymph # [place] # Baso # Seg Neutrophils % Seg Neuts % (Manual) Lymphocytes % (Manual) Monocytes % (Manual) Eosinophils % (Manual) Basophils % (Manual) Nucleated RBC % Seg Neutrophils # Seg Neutrophils # Man Lymphocytes # (Manual) Monocytes # (Manual) Eosinophils # (Manual) Basophils # (Manual) PT INR Fibrinogen dRVVT Confirm Interp Factor V Activity POC ABG pH POC ABG pCO2 POC ABG pO2 ABG pO2 ABG HCO3 ABG Base Excess ABG Hemoglobin Oxyhemoglobin Sodium Potassium Chloride Carbon Dioxide BUN Creatinine Glucose POC Glucose 106 H 117 H 120 H Lactic Acid Calcium Phosphorus Magnesium Direct Bilirubin AST ALT Alkaline Phosphatase Lactate Dehydrogenase Troponin T C-Reactive Protein Total Protein Albumin Prealbumin Triglycerides Cholesterol LDL Cholesterol Direct HDL Cholesterol Urine pH Urine WBC (Auto) Urine Creatinine Urine Total Protein Fluid Total Protein Vancomycin Trough Rheumatoid Factor Complement C4 Miscellaneous Test Crossmatch 10/31/16 10/31/16 10/31/16 05:43 07:15 07:15 WBC 12.1 H RBC 2.63 L Hgb 7.7 L Hct 23.3 L MCV MCH MCHC RDW 16.7 H Plt Count Lymph % (Auto) 11.7 L [place] % (Auto) 7.7 H Lymph # [place] # 0.9 H Baso # Seg Neutrophils % 78.0 H Seg Neuts % (Manual) Lymphocytes % (Manual) Monocytes % (Manual) Eosinophils % (Manual) Basophils % (Manual) Nucleated RBC % Seg Neutrophils # 9.4 H Seg Neutrophils # Man Lymphocytes # (Manual) Monocytes # (Manual) Eosinophils # (Manual) Basophils # (Manual) PT INR Fibrinogen dRVVT Confirm Interp Factor V Activity POC ABG pH POC ABG pCO2 POC ABG pO2 ABG pO2 ABG HCO3 ABG Base Excess ABG Hemoglobin Oxyhemoglobin Sodium Potassium Chloride 96.4 L Carbon Dioxide 21 L BUN 99 H Creatinine 2.6 H Glucose 144 H POC Glucose 125 H Lactic Acid Calcium Phosphorus 4.80 H Magnesium Direct Bilirubin AST ALT Alkaline Phosphatase Lactate Dehydrogenase Troponin T C-Reactive Protein Total Protein Albumin Prealbumin Triglycerides Cholesterol LDL Cholesterol Direct HDL Cholesterol Urine pH Urine WBC (Auto) Urine Creatinine Urine Total Protein Fluid Total Protein Vancomycin Trough Rheumatoid Factor Complement C4 Miscellaneous Test Crossmatch 10/31/16 10/31/16 11/01/16 11:46 18:34 00:20 WBC RBC Hgb Hct MCV MCH MCHC RDW Plt Count Lymph % (Auto) [place] % (Auto) Lymph # [place] # Baso # Seg Neutrophils % Seg Neuts % (Manual) Lymphocytes % (Manual) Monocytes % (Manual) Eosinophils % (Manual) Basophils % (Manual) Nucleated RBC % Seg Neutrophils # Seg Neutrophils # Man Lymphocytes # (Manual) Monocytes # (Manual) Eosinophils # (Manual) Basophils # (Manual) PT INR Fibrinogen dRVVT Confirm Interp Factor V Activity POC ABG pH POC ABG pCO2 POC ABG pO2 ABG pO2 ABG HCO3 ABG Base Excess ABG Hemoglobin Oxyhemoglobin Sodium Potassium Chloride Carbon Dioxide BUN Creatinine Glucose POC Glucose 159 H 140 H 132 H Lactic Acid Calcium Phosphorus Magnesium Direct Bilirubin AST ALT Alkaline Phosphatase Lactate Dehydrogenase Troponin T C-Reactive Protein Total Protein Albumin Prealbumin Triglycerides Cholesterol LDL Cholesterol Direct HDL Cholesterol Urine pH Urine WBC (Auto) Urine Creatinine Urine Total Protein Fluid Total Protein Vancomycin Trough Rheumatoid Factor Complement C4 Miscellaneous Test Crossmatch 11/01/16 11/01/16 11/01/16 04:55 04:55 06:11 WBC 11.2 H RBC 2.68 L Hgb 7.5 L Hct 23.7 L MCV MCH MCHC RDW 16.1 H Plt Count Lymph % (Auto) [place] % (Auto) 9.8 H Lymph # [place] # 1.1 H Baso # Seg Neutrophils % 70.8 H Seg Neuts % (Manual) Lymphocytes % (Manual) Monocytes % (Manual) Eosinophils % (Manual) Basophils % (Manual) Nucleated RBC % Seg Neutrophils # 7.9 H Seg Neutrophils # Man Lymphocytes # (Manual) Monocytes # (Manual) Eosinophils # (Manual) Basophils # (Manual) PT INR Fibrinogen dRVVT Confirm Interp Factor V Activity POC ABG pH POC ABG pCO2 POC ABG pO2 ABG pO2 ABG HCO3 ABG Base Excess ABG Hemoglobin Oxyhemoglobin Sodium Potassium 3.3 L D Chloride Carbon Dioxide BUN 61 H Creatinine 1.9 H Glucose 114 H POC Glucose 115 H Lactic Acid Calcium Phosphorus 1.80 L D Magnesium Direct Bilirubin AST ALT Alkaline Phosphatase Lactate Dehydrogenase Troponin T C-Reactive Protein Total Protein Albumin Prealbumin Triglycerides Cholesterol LDL Cholesterol Direct HDL Cholesterol Urine pH Urine WBC (Auto) Urine Creatinine Urine Total Protein Fluid Total Protein Vancomycin Trough Rheumatoid Factor Complement C4 Miscellaneous Test Crossmatch 11/01/16 11/01/16 11/01/16 12:29 18:23 23:58 WBC RBC Hgb Hct MCV MCH MCHC RDW Plt Count Lymph % (Auto) [place] % (Auto) Lymph # [place] # Baso # Seg Neutrophils % Seg Neuts % (Manual) Lymphocytes % (Manual) Monocytes % (Manual) Eosinophils % (Manual) Basophils % (Manual) Nucleated RBC % Seg Neutrophils # Seg Neutrophils # Man Lymphocytes # (Manual) Monocytes # (Manual) Eosinophils # (Manual) Basophils # (Manual) PT INR Fibrinogen dRVVT Confirm Interp Factor V Activity POC ABG pH POC ABG pCO2 POC ABG pO2 ABG pO2 ABG HCO3 ABG Base Excess ABG Hemoglobin Oxyhemoglobin Sodium Potassium Chloride Carbon Dioxide BUN Creatinine Glucose POC Glucose 142 H 143 H 128 H Lactic Acid Calcium Phosphorus Magnesium Direct Bilirubin AST ALT Alkaline Phosphatase Lactate Dehydrogenase Troponin T C-Reactive Protein Total Protein Albumin Prealbumin Triglycerides Cholesterol LDL Cholesterol Direct HDL Cholesterol Urine pH Urine WBC (Auto) Urine Creatinine Urine Total Protein Fluid Total Protein Vancomycin Trough Rheumatoid Factor Complement C4 Miscellaneous Test Crossmatch 11/02/16 11/02/16 11/02/16 04:16 05:29 11:58 WBC RBC Hgb Hct MCV MCH MCHC RDW Plt Count Lymph % (Auto) [place] % (Auto) Lymph # [place] # Baso # Seg Neutrophils % Seg Neuts % (Manual) Lymphocytes % (Manual) Monocytes % (Manual) Eosinophils % (Manual) Basophils % (Manual) Nucleated RBC % Seg Neutrophils # Seg Neutrophils # Man Lymphocytes # (Manual) Monocytes # (Manual) Eosinophils # (Manual) Basophils # (Manual) PT INR Fibrinogen dRVVT Confirm Interp Factor V Activity POC ABG pH POC ABG pCO2 POC ABG pO2 ABG pO2 ABG HCO3 ABG Base Excess ABG Hemoglobin Oxyhemoglobin Sodium Potassium 3.1 L Chloride Carbon Dioxide BUN 73 H Creatinine 2.3 H Glucose 112 H POC Glucose 135 H 149 H Lactic Acid Calcium Phosphorus Magnesium Direct Bilirubin AST ALT Alkaline Phosphatase Lactate Dehydrogenase Troponin T C-Reactive Protein Total Protein Albumin Prealbumin Triglycerides Cholesterol LDL Cholesterol Direct HDL Cholesterol Urine pH Urine WBC (Auto) Urine Creatinine Urine Total Protein Fluid Total Protein Vancomycin Trough Rheumatoid Factor Complement C4 Miscellaneous Test Crossmatch 11/02/16 11/02/16 11/03/16 17:42 22:54 06:00 WBC RBC Hgb Hct MCV MCH MCHC RDW Plt Count Lymph % (Auto) [place] % (Auto) Lymph # [place] # Baso # Seg Neutrophils % Seg Neuts % (Manual) Lymphocytes % (Manual) Monocytes % (Manual) Eosinophils % (Manual) Basophils % (Manual) Nucleated RBC % Seg Neutrophils # Seg Neutrophils # Man Lymphocytes # (Manual) Monocytes # (Manual) Eosinophils # (Manual) Basophils # (Manual) PT INR Fibrinogen dRVVT Confirm Interp Factor V Activity POC ABG pH POC ABG pCO2 POC ABG pO2 ABG pO2 ABG HCO3 ABG Base Excess ABG Hemoglobin Oxyhemoglobin Sodium Potassium Chloride 96.7 L Carbon Dioxide BUN 41 H Creatinine 1.5 H Glucose 145 H POC Glucose 182 H 115 H Lactic Acid Calcium Phosphorus 1.60 L D Magnesium 1.50 L Direct Bilirubin AST ALT Alkaline Phosphatase Lactate Dehydrogenase Troponin T C-Reactive Protein Total Protein Albumin Prealbumin Triglycerides Cholesterol LDL Cholesterol Direct HDL Cholesterol Urine pH Urine WBC (Auto) Urine Creatinine Urine Total Protein Fluid Total Protein Vancomycin Trough Rheumatoid Factor Complement C4 Miscellaneous Test Crossmatch 11/03/16 11/03/16 11/03/16 11:53 17:45 23:37 WBC RBC Hgb Hct MCV MCH MCHC RDW Plt Count Lymph % (Auto) [place] % (Auto) Lymph # [place] # Baso # Seg Neutrophils % Seg Neuts % (Manual) Lymphocytes % (Manual) Monocytes % (Manual) Eosinophils % (Manual) Basophils % (Manual) Nucleated RBC % Seg Neutrophils # Seg Neutrophils # Man Lymphocytes # (Manual) Monocytes # (Manual) Eosinophils # (Manual) Basophils # (Manual) PT INR Fibrinogen dRVVT Confirm Interp Factor V Activity POC ABG pH POC ABG pCO2 POC ABG pO2 ABG pO2 ABG HCO3 ABG Base Excess ABG Hemoglobin Oxyhemoglobin Sodium Potassium Chloride Carbon Dioxide BUN Creatinine Glucose POC Glucose 131 H 134 H 113 H Lactic Acid Calcium Phosphorus Magnesium Direct Bilirubin AST ALT Alkaline Phosphatase Lactate Dehydrogenase Troponin T C-Reactive Protein Total Protein Albumin Prealbumin Triglycerides Cholesterol LDL Cholesterol Direct HDL Cholesterol Urine pH Urine WBC (Auto) Urine Creatinine Urine Total Protein Fluid Total Protein Vancomycin Trough Rheumatoid Factor Complement C4 Miscellaneous Test Crossmatch 11/04/16 11/04/16 11/04/16 05:41 06:00 12:10 WBC RBC Hgb Hct MCV MCH MCHC RDW Plt Count Lymph % (Auto) [place] % (Auto) Lymph # [place] # Baso # Seg Neutrophils % Seg Neuts % (Manual) Lymphocytes % (Manual) Monocytes % (Manual) Eosinophils % (Manual) Basophils % (Manual) Nucleated RBC % Seg Neutrophils # Seg Neutrophils # Man Lymphocytes # (Manual) Monocytes # (Manual) Eosinophils # (Manual) Basophils # (Manual) PT INR Fibrinogen dRVVT Confirm Interp Factor V Activity POC ABG pH POC ABG pCO2 POC ABG pO2 ABG pO2 ABG HCO3 ABG Base Excess ABG Hemoglobin Oxyhemoglobin Sodium Potassium Chloride 96.7 L Carbon Dioxide BUN 52 H Creatinine 1.9 H Glucose 126 H POC Glucose 137 H 191 H Lactic Acid Calcium Phosphorus Magnesium Direct Bilirubin AST ALT Alkaline Phosphatase Lactate Dehydrogenase Troponin T C-Reactive Protein Total Protein Albumin Prealbumin Triglycerides Cholesterol LDL Cholesterol Direct HDL Cholesterol Urine pH Urine WBC (Auto) Urine Creatinine Urine Total Protein Fluid Total Protein Vancomycin Trough Rheumatoid Factor Complement C4 Miscellaneous Test Crossmatch 11/04/16 11/05/16 11/05/16 22:57 03:10 05:10 WBC RBC Hgb Hct MCV MCH MCHC RDW Plt Count Lymph % (Auto) [place] % (Auto) Lymph # [place] # Baso # Seg Neutrophils % Seg Neuts % (Manual) Lymphocytes % (Manual) Monocytes % (Manual) Eosinophils % (Manual) Basophils % (Manual) Nucleated RBC % Seg Neutrophils # Seg Neutrophils # Man Lymphocytes # (Manual) Monocytes # (Manual) Eosinophils # (Manual) Basophils # (Manual) PT INR Fibrinogen dRVVT Confirm Interp Factor V Activity POC ABG pH POC ABG pCO2 POC ABG pO2 ABG pO2 ABG HCO3 ABG Base Excess ABG Hemoglobin Oxyhemoglobin Sodium 136 L Potassium Chloride 97.2 L Carbon Dioxide BUN 32 H Creatinine 1.3 H Glucose 123 H POC Glucose 125 H 108 H Lactic Acid Calcium 7.8 L Phosphorus Magnesium Direct Bilirubin AST ALT Alkaline Phosphatase Lactate Dehydrogenase Troponin T C-Reactive Protein Total Protein Albumin Prealbumin Triglycerides Cholesterol LDL Cholesterol Direct HDL Cholesterol Urine pH Urine WBC (Auto) Urine Creatinine Urine Total Protein Fluid Total Protein Vancomycin Trough Rheumatoid Factor Complement C4 Miscellaneous Test Crossmatch 11/05/16 11/05/16 11/05/16 12:23 13:09 13:25 WBC RBC Hgb Hct MCV MCH MCHC RDW Plt Count Lymph % (Auto) [place] % (Auto) Lymph # [place] # Baso # Seg Neutrophils % Seg Neuts % (Manual) Lymphocytes % (Manual) Monocytes % (Manual) Eosinophils % (Manual) Basophils % (Manual) Nucleated RBC % Seg Neutrophils # Seg Neutrophils # Man Lymphocytes # (Manual) Monocytes # (Manual) Eosinophils # (Manual) Basophils # (Manual) PT INR Fibrinogen dRVVT Confirm Interp Factor V Activity POC ABG pH POC ABG pCO2 POC ABG pO2 ABG pO2 ABG HCO3 ABG Base Excess ABG Hemoglobin Oxyhemoglobin Sodium Potassium Chloride Carbon Dioxide BUN Creatinine Glucose POC Glucose 124 H Lactic Acid Calcium Phosphorus Magnesium Direct Bilirubin AST ALT Alkaline Phosphatase Lactate Dehydrogenase Troponin T C-Reactive Protein 11.40 H Total Protein Albumin Prealbumin Triglycerides Cholesterol LDL Cholesterol Direct HDL Cholesterol Urine pH 9.0 H Urine WBC (Auto) Urine Creatinine Urine Total Protein Fluid Total Protein Vancomycin Trough Rheumatoid Factor Complement C4 Miscellaneous Test Crossmatch 11/05/16 11/05/16 11/05/16 13:25 17:54 23:42 WBC RBC Hgb Hct MCV MCH MCHC RDW Plt Count Lymph % (Auto) [place] % (Auto) Lymph # [place] # Baso # Seg Neutrophils % Seg Neuts % (Manual) Lymphocytes % (Manual) Monocytes % (Manual) Eosinophils % (Manual) Basophils % (Manual) Nucleated RBC % Seg Neutrophils # Seg Neutrophils # Man Lymphocytes # (Manual) Monocytes # (Manual) Eosinophils # (Manual) Basophils # (Manual) PT INR Fibrinogen dRVVT Confirm Interp Factor V Activity POC ABG pH POC ABG pCO2 POC ABG pO2 ABG pO2 ABG HCO3 ABG Base Excess ABG Hemoglobin Oxyhemoglobin Sodium Potassium Chloride Carbon Dioxide BUN Creatinine Glucose POC Glucose 114 H 134 H Lactic Acid Calcium Phosphorus Magnesium Direct Bilirubin AST ALT Alkaline Phosphatase Lactate Dehydrogenase Troponin T C-Reactive Protein Total Protein Albumin Prealbumin Triglycerides Cholesterol LDL Cholesterol Direct HDL Cholesterol Urine pH Urine WBC (Auto) Urine Creatinine Urine Total Protein Fluid Total Protein Vancomycin Trough Rheumatoid Factor Complement C4 Miscellaneous Test Flexitest 1 H Crossmatch 11/06/16 11/06/16 11/06/16 04:56 06:25 06:25 WBC RBC 2.50 L Hgb 7.3 L Hct 22.5 L MCV MCH MCHC RDW 16.9 H Plt Count Lymph % (Auto) [place] % (Auto) 10.5 H Lymph # [place] # 1.1 H Baso # Seg Neutrophils % Seg Neuts % (Manual) Lymphocytes % (Manual) Monocytes % (Manual) Eosinophils % (Manual) Basophils % (Manual) Nucleated RBC % Seg Neutrophils # Seg Neutrophils # Man Lymphocytes # (Manual) Monocytes # (Manual) Eosinophils # (Manual) Basophils # (Manual) PT INR Fibrinogen dRVVT Confirm Interp Factor V Activity POC ABG pH POC ABG pCO2 POC ABG pO2 ABG pO2 ABG HCO3 ABG Base Excess ABG Hemoglobin Oxyhemoglobin Sodium Potassium 5.1 H Chloride 95.9 L Carbon Dioxide BUN 52 H Creatinine 1.8 H Glucose 117 H POC Glucose 120 H Lactic Acid Calcium Phosphorus Magnesium Direct Bilirubin AST 103 H ALT 77 H Alkaline Phosphatase 285 H Lactate Dehydrogenase Troponin T C-Reactive Protein Total Protein 6.2 L Albumin 1.8 L Prealbumin 0.180 L Triglycerides Cholesterol LDL Cholesterol Direct HDL Cholesterol Urine pH Urine WBC (Auto) Urine Creatinine Urine Total Protein Fluid Total Protein Vancomycin Trough Rheumatoid Factor Complement C4 Miscellaneous Test Crossmatch 11/06/16 11/06/16 11/06/16 11:56 17:14 23:52 WBC RBC Hgb Hct MCV MCH MCHC RDW Plt Count Lymph % (Auto) [place] % (Auto) Lymph # [place] # Baso # Seg Neutrophils % Seg Neuts % (Manual) Lymphocytes % (Manual) Monocytes % (Manual) Eosinophils % (Manual) Basophils % (Manual) Nucleated RBC % Seg Neutrophils # Seg Neutrophils # Man Lymphocytes # (Manual) Monocytes # (Manual) Eosinophils # (Manual) Basophils # (Manual) PT INR Fibrinogen dRVVT Confirm Interp Factor V Activity POC ABG pH POC ABG pCO2 POC ABG pO2 ABG pO2 ABG HCO3 ABG Base Excess ABG Hemoglobin Oxyhemoglobin Sodium Potassium Chloride Carbon Dioxide BUN Creatinine Glucose POC Glucose 141 H 125 H 130 H Lactic Acid Calcium Phosphorus Magnesium Direct Bilirubin AST ALT Alkaline Phosphatase Lactate Dehydrogenase Troponin T C-Reactive Protein Total Protein Albumin Prealbumin Triglycerides Cholesterol LDL Cholesterol Direct HDL Cholesterol Urine pH Urine WBC (Auto) Urine Creatinine Urine Total Protein Fluid Total Protein Vancomycin Trough Rheumatoid Factor Complement C4 Miscellaneous Test Crossmatch 11/07/16 11/07/16 11/07/16 06:30 06:30 09:37 WBC RBC 2.18 L Hgb 6.3 L Hct 19.7 L* MCV MCH MCHC RDW 16.8 H Plt Count Lymph % (Auto) [place] % (Auto) 10.0 H Lymph # [place] # 1.0 H Baso # Seg Neutrophils % Seg Neuts % (Manual) Lymphocytes % (Manual) Monocytes % (Manual) Eosinophils % (Manual) Basophils % (Manual) Nucleated RBC % Seg Neutrophils # Seg Neutrophils # Man Lymphocytes # (Manual) Monocytes # (Manual) Eosinophils # (Manual) Basophils # (Manual) PT INR Fibrinogen dRVVT Confirm Interp Factor V Activity POC ABG pH POC ABG pCO2 POC ABG pO2 ABG pO2 ABG HCO3 ABG Base Excess ABG Hemoglobin Oxyhemoglobin Sodium 135 L Potassium Chloride 95.6 L Carbon Dioxide BUN 70 H Creatinine 2.0 H Glucose 126 H POC Glucose Lactic Acid Calcium Phosphorus Magnesium Direct Bilirubin AST ALT Alkaline Phosphatase Lactate Dehydrogenase Troponin T C-Reactive Protein Total Protein Albumin Prealbumin Triglycerides Cholesterol LDL Cholesterol Direct HDL Cholesterol Urine pH Urine WBC (Auto) Urine Creatinine Urine Total Protein Fluid Total Protein Vancomycin Trough Rheumatoid Factor Complement C4 Miscellaneous Test Crossmatch See Detail 11/07/16 11/07/16 11/07/16 12:52 18:51 21:26 WBC RBC Hgb Hct MCV MCH MCHC RDW Plt Count Lymph % (Auto) [place] % (Auto) Lymph # [place] # Baso # Seg Neutrophils % Seg Neuts % (Manual) Lymphocytes % (Manual) Monocytes % (Manual) Eosinophils % (Manual) Basophils % (Manual) Nucleated RBC % Seg Neutrophils # Seg Neutrophils # Man Lymphocytes # (Manual) Monocytes # (Manual) Eosinophils # (Manual) Basophils # (Manual) PT INR Fibrinogen dRVVT Confirm Interp Factor V Activity POC ABG pH 7.523 H POC ABG pCO2 34.6 L POC ABG pO2 53 L ABG pO2 ABG HCO3 ABG Base Excess ABG Hemoglobin Oxyhemoglobin Sodium Potassium Chloride Carbon Dioxide BUN Creatinine Glucose POC Glucose 142 H 155 H Lactic Acid Calcium Phosphorus Magnesium Direct Bilirubin AST ALT Alkaline Phosphatase Lactate Dehydrogenase Troponin T C-Reactive Protein Total Protein Albumin Prealbumin Triglycerides Cholesterol LDL Cholesterol Direct HDL Cholesterol Urine pH Urine WBC (Auto) Urine Creatinine Urine Total Protein Fluid Total Protein Vancomycin Trough Rheumatoid Factor Complement C4 Miscellaneous Test Crossmatch 11/07/16 11/08/16 11/08/16 21:34 13:03 23:37 WBC RBC 2.63 L Hgb 7.7 L Hct 22.7 L MCV MCH MCHC RDW 17.0 H Plt Count Lymph % (Auto) [place] % (Auto) Lymph # [place] # Baso # Seg Neutrophils % Seg Neuts % (Manual) Lymphocytes % (Manual) Monocytes % (Manual) Eosinophils % (Manual) Basophils % (Manual) Nucleated RBC % Seg Neutrophils # Seg Neutrophils # Man Lymphocytes # (Manual) Monocytes # (Manual) Eosinophils # (Manual) Basophils # (Manual) PT INR Fibrinogen dRVVT Confirm Interp Factor V Activity POC ABG pH 7.478 H POC ABG pCO2 34.0 L POC ABG pO2 50 L ABG pO2 ABG HCO3 ABG Base Excess ABG Hemoglobin Oxyhemoglobin Sodium Potassium Chloride Carbon Dioxide BUN Creatinine Glucose POC Glucose 113 H Lactic Acid Calcium Phosphorus Magnesium Direct Bilirubin AST ALT Alkaline Phosphatase Lactate Dehydrogenase Troponin T C-Reactive Protein Total Protein Albumin Prealbumin Triglycerides Cholesterol LDL Cholesterol Direct HDL Cholesterol Urine pH Urine WBC (Auto) Urine Creatinine Urine Total Protein Fluid Total Protein Vancomycin Trough Rheumatoid Factor Complement C4 Miscellaneous Test Crossmatch 11/09/16 11/09/16 11/09/16 04:35 10:15 18:21 WBC RBC 2.68 L Hgb 7.8 L Hct 23.3 L MCV MCH MCHC RDW 17.0 H Plt Count Lymph % (Auto) [place] % (Auto) 12.1 H Lymph # [place] # 1.1 H Baso # Seg Neutrophils % Seg Neuts % (Manual) Lymphocytes % (Manual) Monocytes % (Manual) Eosinophils % (Manual) Basophils % (Manual) Nucleated RBC % Seg Neutrophils # Seg Neutrophils # Man Lymphocytes # (Manual) Monocytes # (Manual) Eosinophils # (Manual) Basophils # (Manual) PT INR Fibrinogen dRVVT Confirm Interp Factor V Activity POC ABG pH POC ABG pCO2 POC ABG pO2 ABG pO2 ABG HCO3 ABG Base Excess ABG Hemoglobin Oxyhemoglobin Sodium Potassium Chloride Carbon Dioxide BUN 51 H Creatinine 1.8 H Glucose POC Glucose 60 L Lactic Acid Calcium 8.3 L Phosphorus Magnesium Direct Bilirubin AST ALT Alkaline Phosphatase Lactate Dehydrogenase Troponin T C-Reactive Protein Total Protein Albumin Prealbumin Triglycerides Cholesterol LDL Cholesterol Direct HDL Cholesterol Urine pH Urine WBC (Auto) Urine Creatinine Urine Total Protein Fluid Total Protein Vancomycin Trough Rheumatoid Factor Complement C4 Miscellaneous Test Crossmatch 11/09/16 11/10/16 11/10/16 18:55 07:00 11:51 WBC RBC Hgb Hct MCV MCH MCHC RDW Plt Count Lymph % (Auto) [place] % (Auto) Lymph # [place] # Baso # Seg Neutrophils % Seg Neuts % (Manual) Lymphocytes % (Manual) Monocytes % (Manual) Eosinophils % (Manual) Basophils % (Manual) Nucleated RBC % Seg Neutrophils # Seg Neutrophils # Man Lymphocytes # (Manual) Monocytes # (Manual) Eosinophils # (Manual) Basophils # (Manual) PT INR Fibrinogen dRVVT Confirm Interp Factor V Activity POC ABG pH POC ABG pCO2 POC ABG pO2 ABG pO2 ABG HCO3 ABG Base Excess ABG Hemoglobin Oxyhemoglobin Sodium Potassium 3.0 L D Chloride 97.4 L Carbon Dioxide BUN 28 H Creatinine 1.3 H Glucose POC Glucose 68 L 120 H Lactic Acid Calcium 7.8 L Phosphorus Magnesium Direct Bilirubin AST ALT Alkaline Phosphatase Lactate Dehydrogenase Troponin T C-Reactive Protein Total Protein Albumin Prealbumin Triglycerides Cholesterol LDL Cholesterol Direct HDL Cholesterol Urine pH Urine WBC (Auto) Urine Creatinine Urine Total Protein Fluid Total Protein Vancomycin Trough Rheumatoid Factor Complement C4 Miscellaneous Test Crossmatch 11/10/16 11/11/16 11/11/16 14:20 06:59 06:59 WBC RBC 2.81 L Hgb 8.1 L Hct 24.4 L MCV MCH MCHC RDW 16.4 H Plt Count Lymph % (Auto) [place] % (Auto) 10.8 H Lymph # [place] # 1.0 H Baso # Seg Neutrophils % Seg Neuts % (Manual) Lymphocytes % (Manual) Monocytes % (Manual) Eosinophils % (Manual) Basophils % (Manual) Nucleated RBC % Seg Neutrophils # Seg Neutrophils # Man Lymphocytes # (Manual) Monocytes # (Manual) Eosinophils # (Manual) Basophils # (Manual) PT INR Fibrinogen dRVVT Confirm Interp Factor V Activity POC ABG pH POC ABG pCO2 POC ABG pO2 ABG pO2 ABG HCO3 ABG Base Excess ABG Hemoglobin Oxyhemoglobin Sodium Potassium Chloride Carbon Dioxide BUN Creatinine Glucose POC Glucose Lactic Acid Calcium Phosphorus Magnesium Direct Bilirubin AST ALT Alkaline Phosphatase Lactate Dehydrogenase 196 H Troponin T C-Reactive Protein Total Protein 6.1 L Albumin Prealbumin Triglycerides Cholesterol LDL Cholesterol Direct HDL Cholesterol Urine pH Urine WBC (Auto) Urine Creatinine Urine Total Protein Fluid Total Protein < 3.0 L Vancomycin Trough Rheumatoid Factor Complement C4 Miscellaneous Test Crossmatch 11/11/16 11/11/16 11/12/16 06:59 09:50 04:00 WBC RBC Hgb Hct MCV MCH MCHC RDW Plt Count Lymph % (Auto) [place] % (Auto) Lymph # [place] # Baso # Seg Neutrophils % Seg Neuts % (Manual) Lymphocytes % (Manual) Monocytes % (Manual) Eosinophils % (Manual) Basophils % (Manual) Nucleated RBC % Seg Neutrophils # Seg Neutrophils # Man Lymphocytes # (Manual) Monocytes # (Manual) Eosinophils # (Manual) Basophils # (Manual) PT INR 1.18 H Fibrinogen dRVVT Confirm Interp Factor V Activity POC ABG pH POC ABG pCO2 POC ABG pO2 ABG pO2 ABG HCO3 ABG Base Excess ABG Hemoglobin Oxyhemoglobin Sodium 136 L 133 L Potassium Chloride 96.1 L 94.8 L Carbon Dioxide 21 L BUN 37 H 42 H Creatinine 1.8 H 2.0 H Glucose POC Glucose Lactic Acid Calcium Phosphorus Magnesium Direct Bilirubin AST ALT Alkaline Phosphatase Lactate Dehydrogenase Troponin T C-Reactive Protein Total Protein Albumin Prealbumin Triglycerides Cholesterol LDL Cholesterol Direct HDL Cholesterol Urine pH Urine WBC (Auto) Urine Creatinine Urine Total Protein Fluid Total Protein Vancomycin Trough Rheumatoid Factor Complement C4 Miscellaneous Test Crossmatch 11/12/16 11/12/16 11/13/16 04:00 23:55 05:53 WBC RBC Hgb 8.9 L Hct 27.2 L MCV MCH MCHC RDW Plt Count Lymph % (Auto) [place] % (Auto) Lymph # [place] # Baso # Seg Neutrophils % Seg Neuts % (Manual) Lymphocytes % (Manual) Monocytes % (Manual) Eosinophils % (Manual) Basophils % (Manual) Nucleated RBC % Seg Neutrophils # Seg Neutrophils # Man Lymphocytes # (Manual) Monocytes # (Manual) Eosinophils # (Manual) Basophils # (Manual) PT INR Fibrinogen dRVVT Confirm Interp Factor V Activity POC ABG pH POC ABG pCO2 POC ABG pO2 ABG pO2 ABG HCO3 ABG Base Excess ABG Hemoglobin Oxyhemoglobin Sodium Potassium Chloride Carbon Dioxide BUN Creatinine Glucose POC Glucose 132 H 120 H Lactic Acid Calcium Phosphorus Magnesium Direct Bilirubin AST ALT Alkaline Phosphatase Lactate Dehydrogenase Troponin T C-Reactive Protein Total Protein Albumin Prealbumin Triglycerides Cholesterol LDL Cholesterol Direct HDL Cholesterol Urine pH Urine WBC (Auto) Urine Creatinine Urine Total Protein Fluid Total Protein Vancomycin Trough Rheumatoid Factor Complement C4 Miscellaneous Test Crossmatch 11/13/16 11/13/16 11/13/16 11:43 17:09 23:41 WBC RBC Hgb Hct MCV MCH MCHC RDW Plt Count Lymph % (Auto) [place] % (Auto) Lymph # [place] # Baso # Seg Neutrophils % Seg Neuts % (Manual) Lymphocytes % (Manual) Monocytes % (Manual) Eosinophils % (Manual) Basophils % (Manual) Nucleated RBC % Seg Neutrophils # Seg Neutrophils # Man Lymphocytes # (Manual) Monocytes # (Manual) Eosinophils # (Manual) Basophils # (Manual) PT INR Fibrinogen dRVVT Confirm Interp Factor V Activity POC ABG pH POC ABG pCO2 POC ABG pO2 ABG pO2 ABG HCO3 ABG Base Excess ABG Hemoglobin Oxyhemoglobin Sodium Potassium Chloride Carbon Dioxide BUN Creatinine Glucose POC Glucose 114 H 113 H 108 H Lactic Acid Calcium Phosphorus Magnesium Direct Bilirubin AST ALT Alkaline Phosphatase Lactate Dehydrogenase Troponin T C-Reactive Protein Total Protein Albumin Prealbumin Triglycerides Cholesterol LDL Cholesterol Direct HDL Cholesterol Urine pH Urine WBC (Auto) Urine Creatinine Urine Total Protein Fluid Total Protein Vancomycin Trough Rheumatoid Factor Complement C4 Miscellaneous Test Crossmatch 11/13/16 11/15/16 11/15/16 Unknown 00:37 03:30 WBC 11.2 H RBC 2.72 L Hgb 7.6 L Hct 23.4 L MCV MCH MCHC RDW 16.5 H Plt Count Lymph % (Auto) [place] % (Auto) Lymph # [place] # Baso # Seg Neutrophils % Seg Neuts % (Manual) Lymphocytes % (Manual) Monocytes % (Manual) Eosinophils % (Manual) Basophils % (Manual) Nucleated RBC % Seg Neutrophils # Seg Neutrophils # Man Lymphocytes # (Manual) Monocytes # (Manual) Eosinophils # (Manual) Basophils # (Manual) PT INR Fibrinogen dRVVT Confirm Interp Factor V Activity POC ABG pH POC ABG pCO2 POC ABG pO2 ABG pO2 ABG HCO3 ABG Base Excess ABG Hemoglobin Oxyhemoglobin Sodium 135 L Potassium Chloride 95.2 L Carbon Dioxide BUN 52 H Creatinine 2.2 H Glucose POC Glucose 108 H Lactic Acid Calcium Phosphorus Magnesium Direct Bilirubin AST ALT Alkaline Phosphatase Lactate Dehydrogenase Troponin T C-Reactive Protein Total Protein Albumin Prealbumin Triglycerides Cholesterol LDL Cholesterol Direct HDL Cholesterol Urine pH Urine WBC (Auto) Urine Creatinine Urine Total Protein Fluid Total Protein Vancomycin Trough Rheumatoid Factor Complement C4 Miscellaneous Test Crossmatch 11/15/16 11/15/16 11/15/16 03:30 05:04 11:50 WBC RBC Hgb Hct MCV MCH MCHC RDW Plt Count Lymph % (Auto) [place] % (Auto) Lymph # [place] # Baso # Seg Neutrophils % Seg Neuts % (Manual) Lymphocytes % (Manual) Monocytes % (Manual) Eosinophils % (Manual) Basophils % (Manual) Nucleated RBC % Seg Neutrophils # Seg Neutrophils # Man Lymphocytes # (Manual) Monocytes # (Manual) Eosinophils # (Manual) Basophils # (Manual) PT INR Fibrinogen dRVVT Confirm Interp Factor V Activity POC ABG pH POC ABG pCO2 POC ABG pO2 ABG pO2 ABG HCO3 ABG Base Excess ABG Hemoglobin Oxyhemoglobin Sodium Potassium 3.4 L Chloride Carbon Dioxide BUN 25 H Creatinine 1.5 H Glucose 103 H POC Glucose 121 H 144 H Lactic Acid Calcium Phosphorus Magnesium Direct Bilirubin AST ALT Alkaline Phosphatase Lactate Dehydrogenase Troponin T C-Reactive Protein Total Protein Albumin Prealbumin Triglycerides Cholesterol LDL Cholesterol Direct HDL Cholesterol Urine pH Urine WBC (Auto) Urine Creatinine Urine Total Protein Fluid Total Protein Vancomycin Trough Rheumatoid Factor Complement C4 Miscellaneous Test Crossmatch 11/15/16 11/15/16 11/16/16 21:28 23:20 11:44 WBC RBC Hgb Hct MCV MCH MCHC RDW Plt Count Lymph % (Auto) [place] % (Auto) Lymph # [place] # Baso # Seg Neutrophils % Seg Neuts % (Manual) Lymphocytes % (Manual) Monocytes % (Manual) Eosinophils % (Manual) Basophils % (Manual) Nucleated RBC % Seg Neutrophils # Seg Neutrophils # Man Lymphocytes # (Manual) Monocytes # (Manual) Eosinophils # (Manual) Basophils # (Manual) PT INR Fibrinogen dRVVT Confirm Interp Factor V Activity POC ABG pH 7.462 H POC ABG pCO2 POC ABG pO2 71 L ABG pO2 ABG HCO3 ABG Base Excess ABG Hemoglobin Oxyhemoglobin Sodium Potassium Chloride Carbon Dioxide BUN Creatinine Glucose POC Glucose 116 H 133 H Lactic Acid Calcium Phosphorus Magnesium Direct Bilirubin AST ALT Alkaline Phosphatase Lactate Dehydrogenase Troponin T C-Reactive Protein Total Protein Albumin Prealbumin Triglycerides Cholesterol LDL Cholesterol Direct HDL Cholesterol Urine pH Urine WBC (Auto) Urine Creatinine Urine Total Protein Fluid Total Protein Vancomycin Trough Rheumatoid Factor Complement C4 Miscellaneous Test Crossmatch 11/16/16 11/16/16 11/16/16 12:20 17:05 23:35 WBC 11.7 H RBC 2.73 L Hgb 7.6 L Hct 23.7 L MCV MCH MCHC RDW 16.6 H Plt Count Lymph % (Auto) [place] % (Auto) Lymph # [place] # Baso # Seg Neutrophils % Seg Neuts % (Manual) Lymphocytes % (Manual) Monocytes % (Manual) Eosinophils % (Manual) Basophils % (Manual) Nucleated RBC % Seg Neutrophils # Seg Neutrophils # Man Lymphocytes # (Manual) Monocytes # (Manual) Eosinophils # (Manual) Basophils # (Manual) PT INR Fibrinogen dRVVT Confirm Interp Factor V Activity POC ABG pH POC ABG pCO2 POC ABG pO2 ABG pO2 ABG HCO3 ABG Base Excess ABG Hemoglobin Oxyhemoglobin Sodium Potassium Chloride Carbon Dioxide BUN Creatinine Glucose POC Glucose 154 H 125 H Lactic Acid Calcium Phosphorus Magnesium Direct Bilirubin AST ALT Alkaline Phosphatase Lactate Dehydrogenase Troponin T C-Reactive Protein Total Protein Albumin Prealbumin Triglycerides Cholesterol LDL Cholesterol Direct HDL Cholesterol Urine pH Urine WBC (Auto) Urine Creatinine Urine Total Protein Fluid Total Protein Vancomycin Trough Rheumatoid Factor Complement C4 Miscellaneous Test Crossmatch 11/17/16 11/17/16 11/17/16 03:20 03:20 03:20 WBC RBC 2.55 L Hgb 7.3 L Hct 21.9 L MCV MCH MCHC RDW 16.6 H Plt Count Lymph % (Auto) [place] % (Auto) 11.5 H Lymph # [place] # 1.1 H Baso # Seg Neutrophils % Seg Neuts % (Manual) Lymphocytes % (Manual) Monocytes % (Manual) Eosinophils % (Manual) Basophils % (Manual) Nucleated RBC % Seg Neutrophils # Seg Neutrophils # Man Lymphocytes # (Manual) Monocytes # (Manual) Eosinophils # (Manual) Basophils # (Manual) PT 16.8 H INR 1.37 H Fibrinogen dRVVT Confirm Interp Factor V Activity POC ABG pH POC ABG pCO2 POC ABG pO2 ABG pO2 ABG HCO3 ABG Base Excess ABG Hemoglobin Oxyhemoglobin Sodium Potassium 3.5 L Chloride Carbon Dioxide BUN 21 H Creatinine Glucose POC Glucose Lactic Acid Calcium 7.9 L Phosphorus Magnesium Direct Bilirubin AST ALT Alkaline Phosphatase Lactate Dehydrogenase Troponin T C-Reactive Protein Total Protein Albumin Prealbumin Triglycerides Cholesterol LDL Cholesterol Direct HDL Cholesterol Urine pH Urine WBC (Auto) Urine Creatinine Urine Total Protein Fluid Total Protein Vancomycin Trough Rheumatoid Factor Complement C4 Miscellaneous Test Crossmatch 11/17/16 11/17/16 11/17/16 06:34 11:21 21:22 WBC RBC Hgb Hct MCV MCH MCHC RDW Plt Count Lymph % (Auto) [place] % (Auto) Lymph # [place] # Baso # Seg Neutrophils % Seg Neuts % (Manual) Lymphocytes % (Manual) Monocytes % (Manual) Eosinophils % (Manual) Basophils % (Manual) Nucleated RBC % Seg Neutrophils # Seg Neutrophils # Man Lymphocytes # (Manual) Monocytes # (Manual) Eosinophils # (Manual) Basophils # (Manual) PT INR Fibrinogen dRVVT Confirm Interp Factor V Activity POC ABG pH 7.467 H POC ABG pCO2 POC ABG pO2 73 L ABG pO2 ABG HCO3 ABG Base Excess ABG Hemoglobin Oxyhemoglobin Sodium Potassium Chloride Carbon Dioxide BUN Creatinine Glucose POC Glucose 121 H 119 H Lactic Acid Calcium Phosphorus Magnesium Direct Bilirubin AST ALT Alkaline Phosphatase Lactate Dehydrogenase Troponin T C-Reactive Protein Total Protein Albumin Prealbumin Triglycerides Cholesterol LDL Cholesterol Direct HDL Cholesterol Urine pH Urine WBC (Auto) Urine Creatinine Urine Total Protein Fluid Total Protein Vancomycin Trough Rheumatoid Factor Complement C4 Miscellaneous Test Crossmatch 11/18/16 11/18/16 11/19/16 12:16 17:19 00:00 WBC RBC Hgb Hct MCV MCH MCHC RDW Plt Count Lymph % (Auto) [place] % (Auto) Lymph # [place] # Baso # Seg Neutrophils % Seg Neuts % (Manual) Lymphocytes % (Manual) Monocytes % (Manual) Eosinophils % (Manual) Basophils % (Manual) Nucleated RBC % Seg Neutrophils # Seg Neutrophils # Man Lymphocytes # (Manual) Monocytes # (Manual) Eosinophils # (Manual) Basophils # (Manual) PT INR Fibrinogen dRVVT Confirm Interp Factor V Activity POC ABG pH POC ABG pCO2 POC ABG pO2 ABG pO2 ABG HCO3 ABG Base Excess ABG Hemoglobin Oxyhemoglobin Sodium Potassium Chloride Carbon Dioxide BUN Creatinine Glucose POC Glucose 124 H 162 H 139 H Lactic Acid Calcium Phosphorus Magnesium Direct Bilirubin AST ALT Alkaline Phosphatase Lactate Dehydrogenase Troponin T C-Reactive Protein Total Protein Albumin Prealbumin Triglycerides Cholesterol LDL Cholesterol Direct HDL Cholesterol Urine pH Urine WBC (Auto) Urine Creatinine Urine Total Protein Fluid Total Protein Vancomycin Trough Rheumatoid Factor Complement C4 Miscellaneous Test Crossmatch 11/19/16 11/19/16 11/20/16 05:00 12:43 00:40 WBC RBC Hgb Hct MCV MCH MCHC RDW Plt Count Lymph % (Auto) [place] % (Auto) Lymph # [place] # Baso # Seg Neutrophils % Seg Neuts % (Manual) Lymphocytes % (Manual) Monocytes % (Manual) Eosinophils % (Manual) Basophils % (Manual) Nucleated RBC % Seg Neutrophils # Seg Neutrophils # Man Lymphocytes # (Manual) Monocytes # (Manual) Eosinophils # (Manual) Basophils # (Manual) PT INR Fibrinogen dRVVT Confirm Interp Factor V Activity POC ABG pH POC ABG pCO2 POC ABG pO2 ABG pO2 ABG HCO3 ABG Base Excess ABG Hemoglobin Oxyhemoglobin Sodium Potassium Chloride Carbon Dioxide BUN Creatinine Glucose POC Glucose 110 H 125 H 136 H Lactic Acid Calcium Phosphorus Magnesium Direct Bilirubin AST ALT Alkaline Phosphatase Lactate Dehydrogenase Troponin T C-Reactive Protein Total Protein Albumin Prealbumin Triglycerides Cholesterol LDL Cholesterol Direct HDL Cholesterol Urine pH Urine WBC (Auto) Urine Creatinine Urine Total Protein Fluid Total Protein Vancomycin Trough Rheumatoid Factor Complement C4 Miscellaneous Test Crossmatch 11/20/16 11/20/16 11/20/16 05:00 05:00 05:51 WBC 13.1 H RBC 2.74 L Hgb 7.7 L Hct 23.6 L MCV MCH MCHC RDW 16.9 H Plt Count Lymph % (Auto) [place] % (Auto) 10.8 H Lymph # [place] # 1.4 H Baso # Seg Neutrophils % Seg Neuts % (Manual) Lymphocytes % (Manual) Monocytes % (Manual) Eosinophils % (Manual) Basophils % (Manual) Nucleated RBC % Seg Neutrophils # 7.9 H Seg Neutrophils # Man Lymphocytes # (Manual) Monocytes # (Manual) Eosinophils # (Manual) Basophils # (Manual) PT INR Fibrinogen dRVVT Confirm Interp Factor V Activity POC ABG pH POC ABG pCO2 POC ABG pO2 ABG pO2 ABG HCO3 ABG Base Excess ABG Hemoglobin Oxyhemoglobin Sodium Potassium Chloride Carbon Dioxide BUN 31 H Creatinine 1.8 H Glucose 129 H POC Glucose 133 H Lactic Acid Calcium Phosphorus Magnesium Direct Bilirubin AST ALT Alkaline Phosphatase Lactate Dehydrogenase Troponin T C-Reactive Protein Total Protein Albumin Prealbumin Triglycerides Cholesterol LDL Cholesterol Direct HDL Cholesterol Urine pH Urine WBC (Auto) Urine Creatinine Urine Total Protein Fluid Total Protein Vancomycin Trough Rheumatoid Factor Complement C4 Miscellaneous Test Crossmatch 11/20/16 11/20/16 11/21/16 12:40 18:10 01:20 WBC RBC Hgb Hct MCV MCH MCHC RDW Plt Count Lymph % (Auto) [place] % (Auto) Lymph # [place] # Baso # Seg Neutrophils % Seg Neuts % (Manual) Lymphocytes % (Manual) Monocytes % (Manual) Eosinophils % (Manual) Basophils % (Manual) Nucleated RBC % Seg Neutrophils # Seg Neutrophils # Man Lymphocytes # (Manual) Monocytes # (Manual) Eosinophils # (Manual) Basophils # (Manual) PT INR Fibrinogen dRVVT Confirm Interp Factor V Activity POC ABG pH POC ABG pCO2 POC ABG pO2 ABG pO2 ABG HCO3 ABG Base Excess ABG Hemoglobin Oxyhemoglobin Sodium Potassium Chloride Carbon Dioxide BUN Creatinine Glucose POC Glucose 134 H 138 H 136 H Lactic Acid Calcium Phosphorus Magnesium Direct Bilirubin AST ALT Alkaline Phosphatase Lactate Dehydrogenase Troponin T C-Reactive Protein Total Protein Albumin Prealbumin Triglycerides Cholesterol LDL Cholesterol Direct HDL Cholesterol Urine pH Urine WBC (Auto) Urine Creatinine Urine Total Protein Fluid Total Protein Vancomycin Trough Rheumatoid Factor Complement C4 Miscellaneous Test Crossmatch 11/21/16 11/21/16 11/21/16 07:04 07:45 07:45 WBC 22.0 H RBC 2.91 L Hgb 8.2 L Hct 25.4 L MCV MCH MCHC RDW 17.1 H Plt Count Lymph % (Auto) [place] % (Auto) Lymph # [place] # Baso # Seg Neutrophils % Seg Neuts % (Manual) Lymphocytes % (Manual) 8.0 L Monocytes % (Manual) Eosinophils % (Manual) Basophils % (Manual) Nucleated RBC % Seg Neutrophils # Seg Neutrophils # Man 14.7 H Lymphocytes # (Manual) Monocytes # (Manual) 1.1 H Eosinophils # (Manual) Basophils # (Manual) PT INR Fibrinogen dRVVT Confirm Interp Factor V Activity POC ABG pH POC ABG pCO2 POC ABG pO2 ABG pO2 ABG HCO3 ABG Base Excess ABG Hemoglobin Oxyhemoglobin Sodium Potassium Chloride Carbon Dioxide BUN 42 H Creatinine 2.0 H Glucose POC Glucose 108 H Lactic Acid Calcium Phosphorus Magnesium Direct Bilirubin AST ALT Alkaline Phosphatase Lactate Dehydrogenase Troponin T C-Reactive Protein Total Protein Albumin Prealbumin Triglycerides Cholesterol LDL Cholesterol Direct HDL Cholesterol Urine pH Urine WBC (Auto) Urine Creatinine Urine Total Protein Fluid Total Protein Vancomycin Trough Rheumatoid Factor Complement C4 Miscellaneous Test Crossmatch 11/21/16 11/21/16 11/21/16 08:38 10:09 11:20 WBC RBC Hgb Hct MCV MCH MCHC RDW Plt Count Lymph % (Auto) [place] % (Auto) Lymph # [place] # Baso # Seg Neutrophils % Seg Neuts % (Manual) Lymphocytes % (Manual) Monocytes % (Manual) Eosinophils % (Manual) Basophils % (Manual) Nucleated RBC % Seg Neutrophils # Seg Neutrophils # Man Lymphocytes # (Manual) Monocytes # (Manual) Eosinophils # (Manual) Basophils # (Manual) PT INR Fibrinogen dRVVT Confirm Interp Factor V Activity POC ABG pH 7.346 L POC ABG pCO2 34.4 L POC ABG pO2 314 H ABG pO2 ABG HCO3 ABG Base Excess ABG Hemoglobin Oxyhemoglobin Sodium Potassium Chloride Carbon Dioxide BUN Creatinine Glucose POC Glucose 195 H 153 H Lactic Acid Calcium Phosphorus Magnesium Direct Bilirubin AST ALT Alkaline Phosphatase Lactate Dehydrogenase Troponin T C-Reactive Protein Total Protein Albumin Prealbumin Triglycerides Cholesterol LDL Cholesterol Direct HDL Cholesterol Urine pH Urine WBC (Auto) Urine Creatinine Urine Total Protein Fluid Total Protein Vancomycin Trough Rheumatoid Factor Complement C4 Miscellaneous Test Crossmatch 11/21/16 11/22/16 11/22/16 23:37 04:48 05:00 WBC 29.7 H RBC 2.73 L Hgb 7.5 L Hct 24.2 L MCV MCH 27 L MCHC RDW 17.4 H Plt Count Lymph % (Auto) [place] % (Auto) Lymph # [place] # Baso # Seg Neutrophils % Seg Neuts % (Manual) Lymphocytes % (Manual) 7.0 L Monocytes % (Manual) Eosinophils % (Manual) Basophils % (Manual) Nucleated RBC % Seg Neutrophils # Seg Neutrophils # Man 15.4 H Lymphocytes # (Manual) Monocytes # (Manual) Eosinophils # (Manual) Basophils # (Manual) PT INR Fibrinogen dRVVT Confirm Interp Factor V Activity POC ABG pH POC ABG pCO2 24.6 L POC ABG pO2 189 H ABG pO2 ABG HCO3 ABG Base Excess ABG Hemoglobin Oxyhemoglobin Sodium Potassium Chloride Carbon Dioxide BUN Creatinine Glucose POC Glucose 65 L Lactic Acid Calcium Phosphorus Magnesium Direct Bilirubin AST ALT Alkaline Phosphatase Lactate Dehydrogenase Troponin T C-Reactive Protein Total Protein Albumin Prealbumin Triglycerides Cholesterol LDL Cholesterol Direct HDL Cholesterol Urine pH Urine WBC (Auto) Urine Creatinine Urine Total Protein Fluid Total Protein Vancomycin Trough Rheumatoid Factor Complement C4 Miscellaneous Test Crossmatch 11/22/16 11/23/16 11/23/16 05:00 03:44 04:06 WBC RBC 2.52 L Hgb 7.2 L Hct 21.5 L MCV MCH MCHC RDW 17.1 H Plt Count Lymph % (Auto) [place] % (Auto) 12.4 H Lymph # [place] # 1.4 H Baso # Seg Neutrophils % Seg Neuts % (Manual) Lymphocytes % (Manual) Monocytes % (Manual) Eosinophils % (Manual) Basophils % (Manual) Nucleated RBC % Seg Neutrophils # Seg Neutrophils # Man Lymphocytes # (Manual) Monocytes # (Manual) Eosinophils # (Manual) Basophils # (Manual) PT INR Fibrinogen dRVVT Confirm Interp Factor V Activity POC ABG pH 7.493 H POC ABG pCO2 29.5 L POC ABG pO2 49 L ABG pO2 ABG HCO3 ABG Base Excess ABG Hemoglobin Oxyhemoglobin Sodium 134 L Potassium Chloride 95.9 L Carbon Dioxide 14 L D BUN 51 H Creatinine 2.6 H Glucose POC Glucose Lactic Acid Calcium Phosphorus Magnesium Direct Bilirubin AST ALT Alkaline Phosphatase Lactate Dehydrogenase Troponin T C-Reactive Protein Total Protein Albumin Prealbumin Triglycerides Cholesterol LDL Cholesterol Direct HDL Cholesterol Urine pH Urine WBC (Auto) Urine Creatinine Urine Total Protein Fluid Total Protein Vancomycin Trough Rheumatoid Factor Complement C4 Miscellaneous Test Crossmatch 11/23/16 11/23/16 11/24/16 04:06 11:29 06:39 WBC RBC Hgb Hct MCV MCH MCHC RDW Plt Count Lymph % (Auto) [place] % (Auto) Lymph # [place] # Baso # Seg Neutrophils % Seg Neuts % (Manual) Lymphocytes % (Manual) Monocytes % (Manual) Eosinophils % (Manual) Basophils % (Manual) Nucleated RBC % Seg Neutrophils # Seg Neutrophils # Man Lymphocytes # (Manual) Monocytes # (Manual) Eosinophils # (Manual) Basophils # (Manual) PT INR Fibrinogen dRVVT Confirm Interp Factor V Activity POC ABG pH POC ABG pCO2 POC ABG pO2 ABG pO2 ABG HCO3 ABG Base Excess ABG Hemoglobin Oxyhemoglobin Sodium 136 L Potassium Chloride 95.2 L Carbon Dioxide BUN 60 H Creatinine 2.9 H Glucose POC Glucose 69 L 305 H Lactic Acid Calcium Phosphorus Magnesium 1.60 L Direct Bilirubin AST ALT Alkaline Phosphatase Lactate Dehydrogenase Troponin T C-Reactive Protein Total Protein Albumin Prealbumin Triglycerides Cholesterol LDL Cholesterol Direct HDL Cholesterol Urine pH Urine WBC (Auto) Urine Creatinine Urine Total Protein Fluid Total Protein Vancomycin Trough Rheumatoid Factor Complement C4 Miscellaneous Test Crossmatch 11/24/16 11/24/16 11/24/16 06:43 08:08 08:08 WBC 11.2 H RBC 2.47 L Hgb 6.8 L Hct 20.6 L MCV MCH MCHC RDW 17.0 H Plt Count Lymph % (Auto) [place] % (Auto) 10.3 H Lymph # [place] # 1.2 H Baso # Seg Neutrophils % Seg Neuts % (Manual) Lymphocytes % (Manual) Monocytes % (Manual) Eosinophils % (Manual) Basophils % (Manual) Nucleated RBC % Seg Neutrophils # Seg Neutrophils # Man Lymphocytes # (Manual) Monocytes # (Manual) Eosinophils # (Manual) Basophils # (Manual) PT INR Fibrinogen dRVVT Confirm Interp Factor V Activity POC ABG pH POC ABG pCO2 POC ABG pO2 ABG pO2 ABG HCO3 ABG Base Excess ABG Hemoglobin Oxyhemoglobin Sodium 135 L Potassium Chloride 96.3 L Carbon Dioxide BUN 61 H Creatinine 3.1 H Glucose POC Glucose 62 L Lactic Acid Calcium 8.2 L Phosphorus Magnesium Direct Bilirubin AST ALT Alkaline Phosphatase Lactate Dehydrogenase Troponin T C-Reactive Protein Total Protein Albumin Prealbumin Triglycerides Cholesterol LDL Cholesterol Direct HDL Cholesterol Urine pH Urine WBC (Auto) Urine Creatinine Urine Total Protein Fluid Total Protein Vancomycin Trough Rheumatoid Factor Complement C4 Miscellaneous Test Crossmatch 11/24/16 11/24/16 11/24/16 08:34 11:20 12:41 WBC RBC Hgb Hct MCV MCH MCHC RDW Plt Count Lymph % (Auto) [place] % (Auto) Lymph # [place] # Baso # Seg Neutrophils % Seg Neuts % (Manual) Lymphocytes % (Manual) Monocytes % (Manual) Eosinophils % (Manual) Basophils % (Manual) Nucleated RBC % Seg Neutrophils # Seg Neutrophils # Man Lymphocytes # (Manual) Monocytes # (Manual) Eosinophils # (Manual) Basophils # (Manual) PT INR Fibrinogen dRVVT Confirm Interp Factor V Activity POC ABG pH POC ABG pCO2 POC ABG pO2 ABG pO2 ABG HCO3 ABG Base Excess ABG Hemoglobin Oxyhemoglobin Sodium Potassium Chloride Carbon Dioxide BUN Creatinine Glucose POC Glucose 108 H Lactic Acid Calcium Phosphorus Magnesium 1.60 L Direct Bilirubin AST ALT Alkaline Phosphatase Lactate Dehydrogenase Troponin T C-Reactive Protein Total Protein Albumin Prealbumin Triglycerides Cholesterol LDL Cholesterol Direct HDL Cholesterol Urine pH Urine WBC (Auto) Urine Creatinine Urine Total Protein Fluid Total Protein Vancomycin Trough Rheumatoid Factor Complement C4 Miscellaneous Test Crossmatch See Detail 11/25/16 11/25/16 11/25/16 00:03 04:42 04:42 WBC RBC 3.03 L Hgb 8.6 L Hct 25.3 L MCV MCH MCHC RDW 16.2 H Plt Count Lymph % (Auto) [place] % (Auto) 8.1 H Lymph # [place] # Baso # Seg Neutrophils % 71.3 H Seg Neuts % (Manual) Lymphocytes % (Manual) Monocytes % (Manual) Eosinophils % (Manual) Basophils % (Manual) Nucleated RBC % Seg Neutrophils # Seg Neutrophils # Man Lymphocytes # (Manual) Monocytes # (Manual) Eosinophils # (Manual) Basophils # (Manual) PT INR Fibrinogen dRVVT Confirm Interp Factor V Activity POC ABG pH POC ABG pCO2 POC ABG pO2 ABG pO2 ABG HCO3 ABG Base Excess ABG Hemoglobin Oxyhemoglobin Sodium Potassium Chloride Carbon Dioxide BUN 61 H Creatinine 3.0 H Glucose 102 H POC Glucose 113 H Lactic Acid Calcium 8.2 L Phosphorus Magnesium Direct Bilirubin AST ALT Alkaline Phosphatase 142 H Lactate Dehydrogenase Troponin T C-Reactive Protein Total Protein 5.7 L Albumin 1.5 L Prealbumin Triglycerides Cholesterol LDL Cholesterol Direct HDL Cholesterol Urine pH Urine WBC (Auto) Urine Creatinine Urine Total Protein Fluid Total Protein Vancomycin Trough Rheumatoid Factor Complement C4 Miscellaneous Test Crossmatch 11/25/16 11/25/16 11/25/16 05:12 11:31 14:12 WBC RBC Hgb Hct MCV MCH MCHC RDW Plt Count Lymph % (Auto) [place] % (Auto) Lymph # [place] # Baso # Seg Neutrophils % Seg Neuts % (Manual) Lymphocytes % (Manual) Monocytes % (Manual) Eosinophils % (Manual) Basophils % (Manual) Nucleated RBC % Seg Neutrophils # Seg Neutrophils # Man Lymphocytes # (Manual) Monocytes # (Manual) Eosinophils # (Manual) Basophils # (Manual) PT INR Fibrinogen dRVVT Confirm Interp Factor V Activity POC ABG pH 7.487 H POC ABG pCO2 POC ABG pO2 153 H ABG pO2 ABG HCO3 ABG Base Excess ABG Hemoglobin Oxyhemoglobin Sodium Potassium Chloride Carbon Dioxide BUN Creatinine Glucose POC Glucose 131 H 140 H Lactic Acid Calcium Phosphorus Magnesium Direct Bilirubin AST ALT Alkaline Phosphatase Lactate Dehydrogenase Troponin T C-Reactive Protein Total Protein Albumin Prealbumin Triglycerides Cholesterol LDL Cholesterol Direct HDL Cholesterol Urine pH Urine WBC (Auto) Urine Creatinine Urine Total Protein Fluid Total Protein Vancomycin Trough Rheumatoid Factor Complement C4 Miscellaneous Test Crossmatch 11/25/16 11/26/16 11/26/16 17:23 00:09 05:13 WBC RBC 2.94 L Hgb 8.4 L Hct 24.6 L MCV MCH MCHC RDW 16.4 H Plt Count Lymph % (Auto) [place] % (Auto) 12.3 H Lymph # [place] # 1.1 H Baso # Seg Neutrophils % Seg Neuts % (Manual) Lymphocytes % (Manual) Monocytes % (Manual) Eosinophils % (Manual) Basophils % (Manual) Nucleated RBC % Seg Neutrophils # Seg Neutrophils # Man Lymphocytes # (Manual) Monocytes # (Manual) Eosinophils # (Manual) Basophils # (Manual) PT INR Fibrinogen dRVVT Confirm Interp Factor V Activity POC ABG pH POC ABG pCO2 POC ABG pO2 ABG pO2 ABG HCO3 ABG Base Excess ABG Hemoglobin Oxyhemoglobin Sodium Potassium Chloride Carbon Dioxide BUN Creatinine Glucose POC Glucose 146 H 112 H Lactic Acid Calcium Phosphorus Magnesium Direct Bilirubin AST ALT Alkaline Phosphatase Lactate Dehydrogenase Troponin T C-Reactive Protein Total Protein Albumin Prealbumin Triglycerides Cholesterol LDL Cholesterol Direct HDL Cholesterol Urine pH Urine WBC (Auto) Urine Creatinine Urine Total Protein Fluid Total Protein Vancomycin Trough Rheumatoid Factor Complement C4 Miscellaneous Test Crossmatch 11/26/16 11/26/16 11/26/16 05:13 05:28 11:53 WBC RBC Hgb Hct MCV MCH MCHC RDW Plt Count Lymph % (Auto) [place] % (Auto) Lymph # [place] # Baso # Seg Neutrophils % Seg Neuts % (Manual) Lymphocytes % (Manual) Monocytes % (Manual) Eosinophils % (Manual) Basophils % (Manual) Nucleated RBC % Seg Neutrophils # Seg Neutrophils # Man Lymphocytes # (Manual) Monocytes # (Manual) Eosinophils # (Manual) Basophils # (Manual) PT INR Fibrinogen dRVVT Confirm Interp Factor V Activity POC ABG pH POC ABG pCO2 POC ABG pO2 ABG pO2 ABG HCO3 ABG Base Excess ABG Hemoglobin Oxyhemoglobin Sodium Potassium Chloride 97.8 L Carbon Dioxide BUN 37 H Creatinine 2.0 H Glucose 109 H POC Glucose 117 H 111 H Lactic Acid Calcium 7.9 L Phosphorus 1.80 L D Magnesium Direct Bilirubin AST ALT Alkaline Phosphatase Lactate Dehydrogenase Troponin T C-Reactive Protein Total Protein Albumin Prealbumin Triglycerides Cholesterol LDL Cholesterol Direct HDL Cholesterol Urine pH Urine WBC (Auto) Urine Creatinine Urine Total Protein Fluid Total Protein Vancomycin Trough Rheumatoid Factor Complement C4 Miscellaneous Test Crossmatch 11/26/16 11/27/16 11/27/16 17:14 04:50 06:02 WBC RBC Hgb Hct MCV MCH MCHC RDW Plt Count Lymph % (Auto) [place] % (Auto) Lymph # [place] # Baso # Seg Neutrophils % Seg Neuts % (Manual) Lymphocytes % (Manual) Monocytes % (Manual) Eosinophils % (Manual) Basophils % (Manual) Nucleated RBC % Seg Neutrophils # Seg Neutrophils # Man Lymphocytes # (Manual) Monocytes # (Manual) Eosinophils # (Manual) Basophils # (Manual) PT INR Fibrinogen dRVVT Confirm Interp Factor V Activity POC ABG pH POC ABG pCO2 POC ABG pO2 ABG pO2 75.2 L ABG HCO3 26.4 H ABG Base Excess ABG Hemoglobin 7.6 L Oxyhemoglobin 94.8 L Sodium Potassium Chloride Carbon Dioxide BUN 49 H Creatinine 2.3 H Glucose POC Glucose 115 H Lactic Acid Calcium Phosphorus 1.50 L Magnesium Direct Bilirubin AST ALT Alkaline Phosphatase Lactate Dehydrogenase Troponin T C-Reactive Protein Total Protein Albumin Prealbumin Triglycerides Cholesterol LDL Cholesterol Direct HDL Cholesterol Urine pH Urine WBC (Auto) Urine Creatinine Urine Total Protein Fluid Total Protein Vancomycin Trough Rheumatoid Factor Complement C4 Miscellaneous Test Crossmatch 11/27/16 11/27/16 11/27/16 06:02 11:25 17:25 WBC 11.6 H RBC 2.75 L Hgb 7.6 L Hct 23.4 L MCV MCH MCHC RDW 16.5 H Plt Count Lymph % (Auto) [place] % (Auto) Lymph # [place] # Baso # Seg Neutrophils % Seg Neuts % (Manual) Lymphocytes % (Manual) Monocytes % (Manual) Eosinophils % (Manual) Basophils % (Manual) Nucleated RBC % Seg Neutrophils # Seg Neutrophils # Man Lymphocytes # (Manual) Monocytes # (Manual) Eosinophils # (Manual) Basophils # (Manual) PT INR Fibrinogen dRVVT Confirm Interp Factor V Activity POC ABG pH POC ABG pCO2 POC ABG pO2 ABG pO2 ABG HCO3 ABG Base Excess ABG Hemoglobin Oxyhemoglobin Sodium Potassium Chloride Carbon Dioxide BUN Creatinine Glucose POC Glucose 114 H 126 H Lactic Acid Calcium Phosphorus Magnesium Direct Bilirubin AST ALT Alkaline Phosphatase Lactate Dehydrogenase Troponin T C-Reactive Protein Total Protein Albumin Prealbumin Triglycerides Cholesterol LDL Cholesterol Direct HDL Cholesterol Urine pH Urine WBC (Auto) Urine Creatinine Urine Total Protein Fluid Total Protein Vancomycin Trough Rheumatoid Factor Complement C4 Miscellaneous Test Crossmatch 11/28/16 11/28/16 11/28/16 04:45 05:33 05:44 WBC RBC Hgb Hct MCV MCH MCHC RDW Plt Count Lymph % (Auto) [place] % (Auto) Lymph # [place] # Baso # Seg Neutrophils % Seg Neuts % (Manual) Lymphocytes % (Manual) Monocytes % (Manual) Eosinophils % (Manual) Basophils % (Manual) Nucleated RBC % Seg Neutrophils # Seg Neutrophils # Man Lymphocytes # (Manual) Monocytes # (Manual) Eosinophils # (Manual) Basophils # (Manual) PT INR Fibrinogen dRVVT Confirm Interp Factor V Activity POC ABG pH POC ABG pCO2 POC ABG pO2 ABG pO2 99.3 H ABG HCO3 ABG Base Excess ABG Hemoglobin 8.3 L Oxyhemoglobin Sodium Potassium Chloride Carbon Dioxide BUN 63 H Creatinine 2.4 H Glucose 102 H POC Glucose 108 H Lactic Acid Calcium Phosphorus 1.80 L Magnesium Direct Bilirubin AST ALT Alkaline Phosphatase Lactate Dehydrogenase Troponin T C-Reactive Protein Total Protein Albumin Prealbumin Triglycerides Cholesterol LDL Cholesterol Direct HDL Cholesterol Urine pH Urine WBC (Auto) Urine Creatinine Urine Total Protein Fluid Total Protein Vancomycin Trough Rheumatoid Factor Complement C4 Miscellaneous Test Crossmatch 11/28/16 11/28/16 11/28/16 12:31 16:09 23:46 WBC RBC Hgb Hct MCV MCH MCHC RDW Plt Count Lymph % (Auto) [place] % (Auto) Lymph # [place] # Baso # Seg Neutrophils % Seg Neuts % (Manual) Lymphocytes % (Manual) Monocytes % (Manual) Eosinophils % (Manual) Basophils % (Manual) Nucleated RBC % Seg Neutrophils # Seg Neutrophils # Man Lymphocytes # (Manual) Monocytes # (Manual) Eosinophils # (Manual) Basophils # (Manual) PT INR Fibrinogen dRVVT Confirm Interp Factor V Activity POC ABG pH POC ABG pCO2 POC ABG pO2 ABG pO2 ABG HCO3 ABG Base Excess ABG Hemoglobin Oxyhemoglobin Sodium Potassium Chloride Carbon Dioxide BUN Creatinine Glucose POC Glucose 126 H 111 H 119 H Lactic Acid Calcium Phosphorus Magnesium Direct Bilirubin AST ALT Alkaline Phosphatase Lactate Dehydrogenase Troponin T C-Reactive Protein Total Protein Albumin Prealbumin Triglycerides Cholesterol LDL Cholesterol Direct HDL Cholesterol Urine pH Urine WBC (Auto) Urine Creatinine Urine Total Protein Fluid Total Protein Vancomycin Trough Rheumatoid Factor Complement C4 Miscellaneous Test Crossmatch 11/29/16 11/29/16 11/29/16 03:33 04:52 05:10 WBC RBC Hgb Hct MCV MCH MCHC RDW Plt Count Lymph % (Auto) [place] % (Auto) Lymph # [place] # Baso # Seg Neutrophils % Seg Neuts % (Manual) Lymphocytes % (Manual) Monocytes % (Manual) Eosinophils % (Manual) Basophils % (Manual) Nucleated RBC % Seg Neutrophils # Seg Neutrophils # Man Lymphocytes # (Manual) Monocytes # (Manual) Eosinophils # (Manual) Basophils # (Manual) PT INR Fibrinogen dRVVT Confirm Interp Factor V Activity POC ABG pH POC ABG pCO2 POC ABG pO2 ABG pO2 ABG HCO3 ABG Base Excess ABG Hemoglobin 7.0 L Oxyhemoglobin 94.9 L Sodium Potassium Chloride Carbon Dioxide BUN 73 H Creatinine 2.7 H Glucose POC Glucose 108 H Lactic Acid Calcium Phosphorus Magnesium Direct Bilirubin AST ALT Alkaline Phosphatase Lactate Dehydrogenase Troponin T C-Reactive Protein Total Protein Albumin Prealbumin Triglycerides Cholesterol LDL Cholesterol Direct HDL Cholesterol Urine pH Urine WBC (Auto) Urine Creatinine Urine Total Protein Fluid Total Protein Vancomycin Trough Rheumatoid Factor Complement C4 Miscellaneous Test Crossmatch 11/29/16 11/29/16 11/29/16 12:16 18:05 23:46 WBC RBC Hgb Hct MCV MCH MCHC RDW Plt Count Lymph % (Auto) [place] % (Auto) Lymph # [place] # Baso # Seg Neutrophils % Seg Neuts % (Manual) Lymphocytes % (Manual) Monocytes % (Manual) Eosinophils % (Manual) Basophils % (Manual) Nucleated RBC % Seg Neutrophils # Seg Neutrophils # Man Lymphocytes # (Manual) Monocytes # (Manual) Eosinophils # (Manual) Basophils # (Manual) PT INR Fibrinogen dRVVT Confirm Interp Factor V Activity POC ABG pH POC ABG pCO2 POC ABG pO2 ABG pO2 ABG HCO3 ABG Base Excess ABG Hemoglobin Oxyhemoglobin Sodium Potassium Chloride Carbon Dioxide BUN Creatinine Glucose POC Glucose 133 H 146 H 141 H Lactic Acid Calcium Phosphorus Magnesium Direct Bilirubin AST ALT Alkaline Phosphatase Lactate Dehydrogenase Troponin T C-Reactive Protein Total Protein Albumin Prealbumin Triglycerides Cholesterol LDL Cholesterol Direct HDL Cholesterol Urine pH Urine WBC (Auto) Urine Creatinine Urine Total Protein Fluid Total Protein Vancomycin Trough Rheumatoid Factor Complement C4 Miscellaneous Test Crossmatch 11/30/16 11/30/16 11/30/16 04:17 04:17 04:32 WBC 12.0 H RBC 2.80 L Hgb 7.8 L Hct 23.6 L MCV MCH MCHC RDW 16.6 H Plt Count Lymph % (Auto) [place] % (Auto) 11.3 H Lymph # [place] # 1.4 H Baso # Seg Neutrophils % Seg Neuts % (Manual) Lymphocytes % (Manual) Monocytes % (Manual) Eosinophils % (Manual) Basophils % (Manual) Nucleated RBC % Seg Neutrophils # 8.2 H Seg Neutrophils # Man Lymphocytes # (Manual) Monocytes # (Manual) Eosinophils # (Manual) Basophils # (Manual) PT INR Fibrinogen dRVVT Confirm Interp Factor V Activity POC ABG pH POC ABG pCO2 POC ABG pO2 ABG pO2 ABG HCO3 ABG Base Excess ABG Hemoglobin Oxyhemoglobin Sodium 169 H* D Potassium 5.1 H Chloride 121.5 H Carbon Dioxide BUN 34 H Creatinine 1.3 H D Glucose 133 H POC Glucose 131 H Lactic Acid Calcium 10.3 H Phosphorus Magnesium Direct Bilirubin AST ALT Alkaline Phosphatase Lactate Dehydrogenase Troponin T C-Reactive Protein Total Protein Albumin Prealbumin Triglycerides Cholesterol LDL Cholesterol Direct HDL Cholesterol Urine pH Urine WBC (Auto) Urine Creatinine Urine Total Protein Fluid Total Protein Vancomycin Trough Rheumatoid Factor Complement C4 Miscellaneous Test Crossmatch 11/30/16 11/30/16 11/30/16 05:45 11:10 17:26 WBC RBC Hgb Hct MCV MCH MCHC RDW Plt Count Lymph % (Auto) [place] % (Auto) Lymph # [place] # Baso # Seg Neutrophils % Seg Neuts % (Manual) Lymphocytes % (Manual) Monocytes % (Manual) Eosinophils % (Manual) Basophils % (Manual) Nucleated RBC % Seg Neutrophils # Seg Neutrophils # Man Lymphocytes # (Manual) Monocytes # (Manual) Eosinophils # (Manual) Basophils # (Manual) PT INR Fibrinogen dRVVT Confirm Interp Factor V Activity POC ABG pH POC ABG pCO2 POC ABG pO2 ABG pO2 ABG HCO3 ABG Base Excess ABG Hemoglobin Oxyhemoglobin Sodium Potassium Chloride Carbon Dioxide BUN 45 H Creatinine 1.6 H Glucose 131 H POC Glucose 146 H 134 H Lactic Acid Calcium Phosphorus Magnesium Direct Bilirubin AST ALT Alkaline Phosphatase Lactate Dehydrogenase Troponin T C-Reactive Protein Total Protein Albumin Prealbumin Triglycerides Cholesterol LDL Cholesterol Direct HDL Cholesterol Urine pH Urine WBC (Auto) Urine Creatinine Urine Total Protein Fluid Total Protein Vancomycin Trough Rheumatoid Factor Complement C4 Miscellaneous Test Crossmatch 11/30/16 12/01/16 12/01/16 23:35 00:06 03:35 WBC RBC Hgb Hct MCV MCH MCHC RDW Plt Count Lymph % (Auto) [place] % (Auto) Lymph # [place] # Baso # Seg Neutrophils % Seg Neuts % (Manual) Lymphocytes % (Manual) Monocytes % (Manual) Eosinophils % (Manual) Basophils % (Manual) Nucleated RBC % Seg Neutrophils # Seg Neutrophils # Man Lymphocytes # (Manual) Monocytes # (Manual) Eosinophils # (Manual) Basophils # (Manual) PT INR Fibrinogen dRVVT Confirm Interp Factor V Activity POC ABG pH POC ABG pCO2 POC ABG pO2 ABG pO2 ABG HCO3 ABG Base Excess ABG Hemoglobin 6.9 L Oxyhemoglobin Sodium Potassium Chloride Carbon Dioxide BUN 58 H Creatinine 1.8 H Glucose 146 H POC Glucose 151 H Lactic Acid Calcium Phosphorus Magnesium Direct Bilirubin AST ALT Alkaline Phosphatase Lactate Dehydrogenase Troponin T C-Reactive Protein Total Protein Albumin Prealbumin Triglycerides Cholesterol LDL Cholesterol Direct HDL Cholesterol Urine pH Urine WBC (Auto) Urine Creatinine Urine Total Protein Fluid Total Protein Vancomycin Trough Rheumatoid Factor Complement C4 Miscellaneous Test Crossmatch 12/01/16 12/01/16 12/01/16 03:35 05:47 11:52 WBC 12.3 H RBC 2.82 L Hgb 7.8 L Hct 23.7 L MCV MCH MCHC RDW 16.7 H Plt Count Lymph % (Auto) [place] % (Auto) 9.8 H Lymph # [place] # 1.2 H Baso # Seg Neutrophils % Seg Neuts % (Manual) Lymphocytes % (Manual) Monocytes % (Manual) Eosinophils % (Manual) Basophils % (Manual) Nucleated RBC % Seg Neutrophils # 8.4 H Seg Neutrophils # Man Lymphocytes # (Manual) Monocytes # (Manual) Eosinophils # (Manual) Basophils # (Manual) PT INR Fibrinogen dRVVT Confirm Interp Factor V Activity POC ABG pH POC ABG pCO2 POC ABG pO2 ABG pO2 ABG HCO3 ABG Base Excess ABG Hemoglobin Oxyhemoglobin Sodium Potassium Chloride Carbon Dioxide BUN Creatinine Glucose POC Glucose 152 H 152 H Lactic Acid Calcium Phosphorus Magnesium Direct Bilirubin AST ALT Alkaline Phosphatase Lactate Dehydrogenase Troponin T C-Reactive Protein Total Protein Albumin Prealbumin Triglycerides Cholesterol LDL Cholesterol Direct HDL Cholesterol Urine pH Urine WBC (Auto) Urine Creatinine Urine Total Protein Fluid Total Protein Vancomycin Trough Rheumatoid Factor Complement C4 Miscellaneous Test Crossmatch 12/01/16 12/01/16 12/02/16 17:40 23:41 05:00 WBC RBC Hgb Hct MCV MCH MCHC RDW Plt Count Lymph % (Auto) [place] % (Auto) Lymph # [place] # Baso # Seg Neutrophils % Seg Neuts % (Manual) Lymphocytes % (Manual) Monocytes % (Manual) Eosinophils % (Manual) Basophils % (Manual) Nucleated RBC % Seg Neutrophils # Seg Neutrophils # Man Lymphocytes # (Manual) Monocytes # (Manual) Eosinophils # (Manual) Basophils # (Manual) PT INR Fibrinogen dRVVT Confirm Interp Factor V Activity POC ABG pH POC ABG pCO2 POC ABG pO2 ABG pO2 ABG HCO3 ABG Base Excess ABG Hemoglobin Oxyhemoglobin Sodium Potassium Chloride Carbon Dioxide BUN 45 H Creatinine Glucose 115 H POC Glucose 140 H 144 H Lactic Acid Calcium Phosphorus Magnesium Direct Bilirubin AST ALT Alkaline Phosphatase Lactate Dehydrogenase Troponin T C-Reactive Protein Total Protein Albumin Prealbumin Triglycerides Cholesterol LDL Cholesterol Direct HDL Cholesterol Urine pH Urine WBC (Auto) Urine Creatinine Urine Total Protein Fluid Total Protein Vancomycin Trough Rheumatoid Factor Complement C4 Miscellaneous Test Crossmatch 12/02/16 12/02/16 12/02/16 05:31 11:20 17:38 WBC RBC Hgb Hct MCV MCH MCHC RDW Plt Count Lymph % (Auto) [place] % (Auto) Lymph # [place] # Baso # Seg Neutrophils % Seg Neuts % (Manual) Lymphocytes % (Manual) Monocytes % (Manual) Eosinophils % (Manual) Basophils % (Manual) Nucleated RBC % Seg Neutrophils # Seg Neutrophils # Man Lymphocytes # (Manual) Monocytes # (Manual) Eosinophils # (Manual) Basophils # (Manual) PT INR Fibrinogen dRVVT Confirm Interp Factor V Activity POC ABG pH POC ABG pCO2 POC ABG pO2 ABG pO2 ABG HCO3 ABG Base Excess ABG Hemoglobin Oxyhemoglobin Sodium Potassium Chloride Carbon Dioxide BUN Creatinine Glucose POC Glucose 136 H 177 H 139 H Lactic Acid Calcium Phosphorus Magnesium Direct Bilirubin AST ALT Alkaline Phosphatase Lactate Dehydrogenase Troponin T C-Reactive Protein Total Protein Albumin Prealbumin Triglycerides Cholesterol LDL Cholesterol Direct HDL Cholesterol Urine pH Urine WBC (Auto) Urine Creatinine Urine Total Protein Fluid Total Protein Vancomycin Trough Rheumatoid Factor Complement C4 Miscellaneous Test Crossmatch 12/02/16 12/03/16 12/03/16 23:43 04:00 04:00 WBC 20.4 H RBC 2.74 L Hgb 7.4 L Hct 23.6 L MCV MCH 27 L MCHC RDW 17.1 H Plt Count Lymph % (Auto) [place] % (Auto) Lymph # [place] # Baso # Seg Neutrophils % Seg Neuts % (Manual) 31.0 L Lymphocytes % (Manual) Monocytes % (Manual) Eosinophils % (Manual) Basophils % (Manual) Nucleated RBC % Seg Neutrophils # Seg Neutrophils # Man Lymphocytes # (Manual) Monocytes # (Manual) Eosinophils # (Manual) Basophils # (Manual) PT INR Fibrinogen dRVVT Confirm Interp Factor V Activity POC ABG pH POC ABG pCO2 POC ABG pO2 ABG pO2 ABG HCO3 ABG Base Excess ABG Hemoglobin Oxyhemoglobin Sodium Potassium Chloride Carbon Dioxide BUN 61 H Creatinine 1.6 H Glucose 119 H POC Glucose 158 H Lactic Acid Calcium Phosphorus Magnesium Direct Bilirubin AST ALT Alkaline Phosphatase Lactate Dehydrogenase Troponin T C-Reactive Protein Total Protein Albumin Prealbumin Triglycerides Cholesterol LDL Cholesterol Direct HDL Cholesterol Urine pH Urine WBC (Auto) Urine Creatinine Urine Total Protein Fluid Total Protein Vancomycin Trough Rheumatoid Factor Complement C4 Miscellaneous Test Crossmatch 12/03/16 12/03/16 12/03/16 05:02 12:11 18:16 WBC RBC Hgb Hct MCV MCH MCHC RDW Plt Count Lymph % (Auto) [place] % (Auto) Lymph # [place] # Baso # Seg Neutrophils % Seg Neuts % (Manual) Lymphocytes % (Manual) Monocytes % (Manual) Eosinophils % (Manual) Basophils % (Manual) Nucleated RBC % Seg Neutrophils # Seg Neutrophils # Man Lymphocytes # (Manual) Monocytes # (Manual) Eosinophils # (Manual) Basophils # (Manual) PT INR Fibrinogen dRVVT Confirm Interp Factor V Activity POC ABG pH POC ABG pCO2 POC ABG pO2 ABG pO2 ABG HCO3 ABG Base Excess ABG Hemoglobin Oxyhemoglobin Sodium Potassium Chloride Carbon Dioxide BUN Creatinine Glucose POC Glucose 146 H 157 H 124 H Lactic Acid Calcium Phosphorus Magnesium Direct Bilirubin AST ALT Alkaline Phosphatase Lactate Dehydrogenase Troponin T C-Reactive Protein Total Protein Albumin Prealbumin Triglycerides Cholesterol LDL Cholesterol Direct HDL Cholesterol Urine pH Urine WBC (Auto) Urine Creatinine Urine Total Protein Fluid Total Protein Vancomycin Trough Rheumatoid Factor Complement C4 Miscellaneous Test Crossmatch 12/03/16 12/04/16 12/04/16 23:41 04:00 04:45 WBC RBC Hgb Hct MCV MCH MCHC RDW Plt Count Lymph % (Auto) [place] % (Auto) Lymph # [place] # Baso # Seg Neutrophils % Seg Neuts % (Manual) Lymphocytes % (Manual) Monocytes % (Manual) Eosinophils % (Manual) Basophils % (Manual) Nucleated RBC % Seg Neutrophils # Seg Neutrophils # Man Lymphocytes # (Manual) Monocytes # (Manual) Eosinophils # (Manual) Basophils # (Manual) PT INR Fibrinogen dRVVT Confirm Interp Factor V Activity POC ABG pH POC ABG pCO2 POC ABG pO2 ABG pO2 ABG HCO3 ABG Base Excess ABG Hemoglobin Oxyhemoglobin Sodium Potassium Chloride Carbon Dioxide BUN 76 H Creatinine 1.6 H Glucose POC Glucose 130 H 136 H Lactic Acid Calcium Phosphorus Magnesium Direct Bilirubin AST ALT Alkaline Phosphatase 155 H Lactate Dehydrogenase Troponin T C-Reactive Protein Total Protein 5.5 L Albumin 1.5 L Prealbumin Triglycerides Cholesterol LDL Cholesterol Direct HDL Cholesterol Urine pH Urine WBC (Auto) Urine Creatinine Urine Total Protein Fluid Total Protein Vancomycin Trough Rheumatoid Factor Complement C4 Miscellaneous Test Crossmatch 12/04/16 12/04/16 12/05/16 12:08 17:23 00:10 WBC RBC Hgb Hct MCV MCH MCHC RDW Plt Count Lymph % (Auto) [place] % (Auto) Lymph # [place] # Baso # Seg Neutrophils % Seg Neuts % (Manual) Lymphocytes % (Manual) Monocytes % (Manual) Eosinophils % (Manual) Basophils % (Manual) Nucleated RBC % Seg Neutrophils # Seg Neutrophils # Man Lymphocytes # (Manual) Monocytes # (Manual) Eosinophils # (Manual) Basophils # (Manual) PT INR Fibrinogen dRVVT Confirm Interp Factor V Activity POC ABG pH POC ABG pCO2 POC ABG pO2 ABG pO2 ABG HCO3 ABG Base Excess ABG Hemoglobin Oxyhemoglobin Sodium Potassium Chloride Carbon Dioxide BUN Creatinine Glucose POC Glucose 114 H 129 H 124 H Lactic Acid Calcium Phosphorus Magnesium Direct Bilirubin AST ALT Alkaline Phosphatase Lactate Dehydrogenase Troponin T C-Reactive Protein Total Protein Albumin Prealbumin Triglycerides Cholesterol LDL Cholesterol Direct HDL Cholesterol Urine pH Urine WBC (Auto) Urine Creatinine Urine Total Protein Fluid Total Protein Vancomycin Trough Rheumatoid Factor Complement C4 Miscellaneous Test Crossmatch 12/05/16 12/05/16 12/05/16 05:00 05:00 05:18 WBC RBC Hgb Hct MCV MCH MCHC RDW Plt Count Lymph % (Auto) [place] % (Auto) Lymph # [place] # Baso # Seg Neutrophils % Seg Neuts % (Manual) Lymphocytes % (Manual) Monocytes % (Manual) Eosinophils % (Manual) Basophils % (Manual) Nucleated RBC % Seg Neutrophils # Seg Neutrophils # Man Lymphocytes # (Manual) Monocytes # (Manual) Eosinophils # (Manual) Basophils # (Manual) PT INR Fibrinogen dRVVT Confirm Interp Factor V Activity POC ABG pH POC ABG pCO2 POC ABG pO2 ABG pO2 ABG HCO3 ABG Base Excess ABG Hemoglobin Oxyhemoglobin Sodium Potassium Chloride Carbon Dioxide 21 L BUN 85 H Creatinine 1.9 H Glucose 131 H POC Glucose 154 H Lactic Acid Calcium Phosphorus Magnesium Direct Bilirubin AST ALT Alkaline Phosphatase Lactate Dehydrogenase Troponin T C-Reactive Protein 19.30 H Total Protein Albumin Prealbumin Triglycerides Cholesterol LDL Cholesterol Direct HDL Cholesterol Urine pH Urine WBC (Auto) Urine Creatinine Urine Total Protein Fluid Total Protein Vancomycin Trough Rheumatoid Factor Complement C4 Miscellaneous Test Crossmatch 12/05/16 12/05/16 12/05/16 11:43 17:46 23:25 WBC RBC Hgb Hct MCV MCH MCHC RDW Plt Count Lymph % (Auto) [place] % (Auto) Lymph # [place] # Baso # Seg Neutrophils % Seg Neuts % (Manual) Lymphocytes % (Manual) Monocytes % (Manual) Eosinophils % (Manual) Basophils % (Manual) Nucleated RBC % Seg Neutrophils # Seg Neutrophils # Man Lymphocytes # (Manual) Monocytes # (Manual) Eosinophils # (Manual) Basophils # (Manual) PT INR Fibrinogen dRVVT Confirm Interp Factor V Activity POC ABG pH POC ABG pCO2 POC ABG pO2 ABG pO2 ABG HCO3 ABG Base Excess ABG Hemoglobin Oxyhemoglobin Sodium Potassium Chloride Carbon Dioxide BUN Creatinine Glucose POC Glucose 117 H 113 H 111 H Lactic Acid Calcium Phosphorus Magnesium Direct Bilirubin AST ALT Alkaline Phosphatase Lactate Dehydrogenase Troponin T C-Reactive Protein Total Protein Albumin Prealbumin Triglycerides Cholesterol LDL Cholesterol Direct HDL Cholesterol Urine pH Urine WBC (Auto) Urine Creatinine Urine Total Protein Fluid Total Protein Vancomycin Trough Rheumatoid Factor Complement C4 Miscellaneous Test Crossmatch 12/05/16 12/06/16 12/06/16 Unknown 04:58 06:00 WBC RBC Hgb Hct MCV MCH MCHC RDW Plt Count Lymph % (Auto) [place] % (Auto) Lymph # [place] # Baso # Seg Neutrophils % Seg Neuts % (Manual) Lymphocytes % (Manual) Monocytes % (Manual) Eosinophils % (Manual) Basophils % (Manual) Nucleated RBC % Seg Neutrophils # Seg Neutrophils # Man Lymphocytes # (Manual) Monocytes # (Manual) Eosinophils # (Manual) Basophils # (Manual) PT INR Fibrinogen dRVVT Confirm Interp Factor V Activity POC ABG pH POC ABG pCO2 POC ABG pO2 ABG pO2 75.2 L ABG HCO3 ABG Base Excess -3.4 L ABG Hemoglobin 7.4 L Oxyhemoglobin 94.5 L Sodium Potassium Chloride Carbon Dioxide 20 L BUN 99 H Creatinine 2.1 H Glucose 126 H POC Glucose 145 H Lactic Acid Calcium Phosphorus 4.80 H Magnesium Direct Bilirubin AST ALT Alkaline Phosphatase Lactate Dehydrogenase Troponin T C-Reactive Protein Total Protein Albumin Prealbumin Triglycerides Cholesterol LDL Cholesterol Direct HDL Cholesterol Urine pH Urine WBC (Auto) Urine Creatinine Urine Total Protein Fluid Total Protein Vancomycin Trough Rheumatoid Factor Complement C4 Miscellaneous Test Crossmatch 12/06/16 12/06/16 12/06/16 06:46 11:54 17:55 WBC RBC Hgb 8.3 L Hct 26.4 L MCV MCH MCHC RDW Plt Count Lymph % (Auto) [place] % (Auto) Lymph # [place] # Baso # Seg Neutrophils % Seg Neuts % (Manual) Lymphocytes % (Manual) Monocytes % (Manual) Eosinophils % (Manual) Basophils % (Manual) Nucleated RBC % Seg Neutrophils # Seg Neutrophils # Man Lymphocytes # (Manual) Monocytes # (Manual) Eosinophils # (Manual) Basophils # (Manual) PT INR Fibrinogen dRVVT Confirm Interp Factor V Activity POC ABG pH POC ABG pCO2 POC ABG pO2 ABG pO2 ABG HCO3 ABG Base Excess ABG Hemoglobin Oxyhemoglobin Sodium Potassium Chloride Carbon Dioxide BUN Creatinine Glucose POC Glucose 126 H 157 H Lactic Acid Calcium Phosphorus Magnesium Direct Bilirubin AST ALT Alkaline Phosphatase Lactate Dehydrogenase Troponin T C-Reactive Protein Total Protein Albumin Prealbumin Triglycerides Cholesterol LDL Cholesterol Direct HDL Cholesterol Urine pH Urine WBC (Auto) Urine Creatinine Urine Total Protein Fluid Total Protein Vancomycin Trough Rheumatoid Factor Complement C4 Miscellaneous Test Crossmatch 12/06/16 12/07/16 12/07/16 23:59 05:34 06:30 WBC RBC Hgb Hct MCV MCH MCHC RDW Plt Count Lymph % (Auto) [place] % (Auto) Lymph # [place] # Baso # Seg Neutrophils % Seg Neuts % (Manual) Lymphocytes % (Manual) Monocytes % (Manual) Eosinophils % (Manual) Basophils % (Manual) Nucleated RBC % Seg Neutrophils # Seg Neutrophils # Man Lymphocytes # (Manual) Monocytes # (Manual) Eosinophils # (Manual) Basophils # (Manual) PT INR Fibrinogen dRVVT Confirm Interp Factor V Activity POC ABG pH POC ABG pCO2 POC ABG pO2 ABG pO2 ABG HCO3 ABG Base Excess ABG Hemoglobin Oxyhemoglobin Sodium Potassium Chloride Carbon Dioxide BUN 67 H Creatinine 1.4 H Glucose 126 H POC Glucose 129 H 129 H Lactic Acid Calcium Phosphorus Magnesium Direct Bilirubin AST ALT Alkaline Phosphatase Lactate Dehydrogenase Troponin T C-Reactive Protein Total Protein Albumin Prealbumin Triglycerides Cholesterol LDL Cholesterol Direct HDL Cholesterol Urine pH Urine WBC (Auto) Urine Creatinine Urine Total Protein Fluid Total Protein Vancomycin Trough Rheumatoid Factor Complement C4 Miscellaneous Test Crossmatch 12/07/16 12/07/16 12/07/16 06:30 08:00 09:45 WBC 18.8 H RBC 2.52 L Hgb 6.9 L 6.8 L Hct 21.2 L 21.1 L MCV MCH 27 L MCHC RDW 18.0 H Plt Count Lymph % (Auto) [place] % (Auto) 9.9 H Lymph # [place] # 1.9 H Baso # Seg Neutrophils % 71.8 H Seg Neuts % (Manual) Lymphocytes % (Manual) Monocytes % (Manual) Eosinophils % (Manual) Basophils % (Manual) Nucleated RBC % Seg Neutrophils # 13.5 H Seg Neutrophils # Man Lymphocytes # (Manual) Monocytes # (Manual) Eosinophils # (Manual) Basophils # (Manual) PT INR Fibrinogen dRVVT Confirm Interp Factor V Activity POC ABG pH POC ABG pCO2 POC ABG pO2 ABG pO2 ABG HCO3 ABG Base Excess ABG Hemoglobin Oxyhemoglobin Sodium Potassium Chloride Carbon Dioxide BUN Creatinine Glucose POC Glucose Lactic Acid Calcium Phosphorus Magnesium Direct Bilirubin AST ALT Alkaline Phosphatase Lactate Dehydrogenase Troponin T C-Reactive Protein Total Protein Albumin Prealbumin Triglycerides Cholesterol LDL Cholesterol Direct HDL Cholesterol Urine pH Urine WBC (Auto) Urine Creatinine Urine Total Protein Fluid Total Protein Vancomycin Trough Rheumatoid Factor Complement C4 Miscellaneous Test Crossmatch See Detail 12/07/16 12/07/16 12/07/16 11:44 18:19 23:59 WBC RBC Hgb Hct MCV MCH MCHC RDW Plt Count Lymph % (Auto) [place] % (Auto) Lymph # [place] # Baso # Seg Neutrophils % Seg Neuts % (Manual) Lymphocytes % (Manual) Monocytes % (Manual) Eosinophils % (Manual) Basophils % (Manual) Nucleated RBC % Seg Neutrophils # Seg Neutrophils # Man Lymphocytes # (Manual) Monocytes # (Manual) Eosinophils # (Manual) Basophils # (Manual) PT INR Fibrinogen dRVVT Confirm Interp Factor V Activity POC ABG pH POC ABG pCO2 POC ABG pO2 ABG pO2 ABG HCO3 ABG Base Excess ABG Hemoglobin Oxyhemoglobin Sodium Potassium Chloride Carbon Dioxide BUN Creatinine Glucose POC Glucose 137 H 138 H 133 H Lactic Acid Calcium Phosphorus Magnesium Direct Bilirubin AST ALT Alkaline Phosphatase Lactate Dehydrogenase Troponin T C-Reactive Protein Total Protein Albumin Prealbumin Triglycerides Cholesterol LDL Cholesterol Direct HDL Cholesterol Urine pH Urine WBC (Auto) Urine Creatinine Urine Total Protein Fluid Total Protein Vancomycin Trough Rheumatoid Factor Complement C4 Miscellaneous Test Crossmatch 12/08/16 12/08/16 12/08/16 05:25 05:30 05:30 WBC 23.8 H RBC 2.88 L Hgb 8.1 L Hct 24.3 L MCV MCH MCHC RDW 16.7 H Plt Count Lymph % (Auto) [place] % (Auto) Lymph # [place] # Baso # Seg Neutrophils % Seg Neuts % (Manual) 76.0 H Lymphocytes % (Manual) 9.0 L Monocytes % (Manual) 9.0 H Eosinophils % (Manual) Basophils % (Manual) Nucleated RBC % Seg Neutrophils # Seg Neutrophils # Man 18.1 H Lymphocytes # (Manual) Monocytes # (Manual) 2.1 H Eosinophils # (Manual) Basophils # (Manual) PT INR Fibrinogen dRVVT Confirm Interp Factor V Activity POC ABG pH POC ABG pCO2 POC ABG pO2 ABG pO2 ABG HCO3 ABG Base Excess ABG Hemoglobin Oxyhemoglobin Sodium Potassium Chloride Carbon Dioxide 21 L BUN 76 H Creatinine 1.6 H Glucose 133 H POC Glucose 177 H Lactic Acid Calcium Phosphorus Magnesium Direct Bilirubin AST ALT Alkaline Phosphatase Lactate Dehydrogenase Troponin T C-Reactive Protein Total Protein Albumin Prealbumin Triglycerides Cholesterol LDL Cholesterol Direct HDL Cholesterol Urine pH Urine WBC (Auto) Urine Creatinine Urine Total Protein Fluid Total Protein Vancomycin Trough Rheumatoid Factor Complement C4 Miscellaneous Test Crossmatch 12/08/16 12/08/16 12/09/16 11:45 18:00 00:00 WBC RBC Hgb Hct MCV MCH MCHC RDW Plt Count Lymph % (Auto) [place] % (Auto) Lymph # [place] # Baso # Seg Neutrophils % Seg Neuts % (Manual) Lymphocytes % (Manual) Monocytes % (Manual) Eosinophils % (Manual) Basophils % (Manual) Nucleated RBC % Seg Neutrophils # Seg Neutrophils # Man Lymphocytes # (Manual) Monocytes # (Manual) Eosinophils # (Manual) Basophils # (Manual) PT INR Fibrinogen dRVVT Confirm Interp Factor V Activity POC ABG pH POC ABG pCO2 POC ABG pO2 ABG pO2 ABG HCO3 ABG Base Excess ABG Hemoglobin Oxyhemoglobin Sodium Potassium Chloride Carbon Dioxide BUN Creatinine Glucose POC Glucose 163 H 123 H 137 H Lactic Acid Calcium Phosphorus Magnesium Direct Bilirubin AST ALT Alkaline Phosphatase Lactate Dehydrogenase Troponin T C-Reactive Protein Total Protein Albumin Prealbumin Triglycerides Cholesterol LDL Cholesterol Direct HDL Cholesterol Urine pH Urine WBC (Auto) Urine Creatinine Urine Total Protein Fluid Total Protein Vancomycin Trough Rheumatoid Factor Complement C4 Miscellaneous Test Crossmatch 12/09/16 12/09/16 12/09/16 05:34 06:00 06:00 WBC 15.5 H RBC 2.87 L Hgb 8.0 L Hct 24.2 L MCV MCH MCHC RDW 17.2 H Plt Count Lymph % (Auto) [place] % (Auto) 11.6 H Lymph # [place] # 1.8 H Baso # Seg Neutrophils % 70.8 H Seg Neuts % (Manual) Lymphocytes % (Manual) Monocytes % (Manual) Eosinophils % (Manual) Basophils % (Manual) Nucleated RBC % Seg Neutrophils # 11.0 H Seg Neutrophils # Man Lymphocytes # (Manual) Monocytes # (Manual) Eosinophils # (Manual) Basophils # (Manual) PT INR Fibrinogen dRVVT Confirm Interp Factor V Activity POC ABG pH POC ABG pCO2 POC ABG pO2 ABG pO2 ABG HCO3 ABG Base Excess ABG Hemoglobin Oxyhemoglobin Sodium Potassium Chloride Carbon Dioxide BUN 51 H Creatinine Glucose 117 H POC Glucose 136 H Lactic Acid Calcium Phosphorus Magnesium Direct Bilirubin AST ALT Alkaline Phosphatase Lactate Dehydrogenase Troponin T C-Reactive Protein Total Protein Albumin Prealbumin Triglycerides Cholesterol LDL Cholesterol Direct HDL Cholesterol Urine pH Urine WBC (Auto) Urine Creatinine Urine Total Protein Fluid Total Protein Vancomycin Trough Rheumatoid Factor Complement C4 Miscellaneous Test Crossmatch 12/09/16 12/09/16 12/09/16 12:29 17:52 23:10 WBC RBC Hgb Hct MCV MCH MCHC RDW Plt Count Lymph % (Auto) [place] % (Auto) Lymph # [place] # Baso # Seg Neutrophils % Seg Neuts % (Manual) Lymphocytes % (Manual) Monocytes % (Manual) Eosinophils % (Manual) Basophils % (Manual) Nucleated RBC % Seg Neutrophils # Seg Neutrophils # Man Lymphocytes # (Manual) Monocytes # (Manual) Eosinophils # (Manual) Basophils # (Manual) PT INR Fibrinogen dRVVT Confirm Interp Factor V Activity POC ABG pH POC ABG pCO2 POC ABG pO2 ABG pO2 ABG HCO3 ABG Base Excess ABG Hemoglobin Oxyhemoglobin Sodium Potassium Chloride Carbon Dioxide BUN Creatinine Glucose POC Glucose 139 H 140 H 129 H Lactic Acid Calcium Phosphorus Magnesium Direct Bilirubin AST ALT Alkaline Phosphatase Lactate Dehydrogenase Troponin T C-Reactive Protein Total Protein Albumin Prealbumin Triglycerides Cholesterol LDL Cholesterol Direct HDL Cholesterol Urine pH Urine WBC (Auto) Urine Creatinine Urine Total Protein Fluid Total Protein Vancomycin Trough Rheumatoid Factor Complement C4 Miscellaneous Test Crossmatch 12/10/16 12/10/16 12/10/16 05:00 05:00 06:54 WBC 15.7 H RBC 2.87 L Hgb 8.2 L Hct 24.4 L MCV MCH MCHC RDW 17.2 H Plt Count Lymph % (Auto) [place] % (Auto) 8.3 H Lymph # [place] # 1.3 H Baso # Seg Neutrophils % 72.8 H Seg Neuts % (Manual) Lymphocytes % (Manual) Monocytes % (Manual) Eosinophils % (Manual) Basophils % (Manual) Nucleated RBC % Seg Neutrophils # 11.4 H Seg Neutrophils # Man Lymphocytes # (Manual) Monocytes # (Manual) Eosinophils # (Manual) Basophils # (Manual) PT INR Fibrinogen dRVVT Confirm Interp Factor V Activity POC ABG pH POC ABG pCO2 POC ABG pO2 ABG pO2 ABG HCO3 ABG Base Excess ABG Hemoglobin Oxyhemoglobin Sodium Potassium Chloride Carbon Dioxide BUN 64 H Creatinine 1.4 H Glucose 134 H POC Glucose 154 H Lactic Acid Calcium Phosphorus Magnesium Direct Bilirubin AST ALT Alkaline Phosphatase Lactate Dehydrogenase Troponin T C-Reactive Protein Total Protein Albumin Prealbumin Triglycerides Cholesterol LDL Cholesterol Direct HDL Cholesterol Urine pH Urine WBC (Auto) Urine Creatinine Urine Total Protein Fluid Total Protein Vancomycin Trough Rheumatoid Factor Complement C4 Miscellaneous Test Crossmatch 12/10/16 12/10/16 12/10/16 11:58 17:29 23:52 WBC RBC Hgb Hct MCV MCH MCHC RDW Plt Count Lymph % (Auto) [place] % (Auto) Lymph # [place] # Baso # Seg Neutrophils % Seg Neuts % (Manual) Lymphocytes % (Manual) Monocytes % (Manual) Eosinophils % (Manual) Basophils % (Manual) Nucleated RBC % Seg Neutrophils # Seg Neutrophils # Man Lymphocytes # (Manual) Monocytes # (Manual) Eosinophils # (Manual) Basophils # (Manual) PT INR Fibrinogen dRVVT Confirm Interp Factor V Activity POC ABG pH POC ABG pCO2 POC ABG pO2 ABG pO2 ABG HCO3 ABG Base Excess ABG Hemoglobin Oxyhemoglobin Sodium Potassium Chloride Carbon Dioxide BUN Creatinine Glucose POC Glucose 144 H 163 H 125 H Lactic Acid Calcium Phosphorus Magnesium Direct Bilirubin AST ALT Alkaline Phosphatase Lactate Dehydrogenase Troponin T C-Reactive Protein Total Protein Albumin Prealbumin Triglycerides Cholesterol LDL Cholesterol Direct HDL Cholesterol Urine pH Urine WBC (Auto) Urine Creatinine Urine Total Protein Fluid Total Protein Vancomycin Trough Rheumatoid Factor Complement C4 Miscellaneous Test Crossmatch 12/11/16 12/11/16 12/11/16 05:38 06:30 06:30 WBC 14.4 H RBC 2.76 L Hgb 7.7 L Hct 23.4 L MCV MCH MCHC RDW 17.2 H Plt Count Lymph % (Auto) [place] % (Auto) 8.8 H Lymph # [place] # 1.3 H Baso # Seg Neutrophils % 72.5 H Seg Neuts % (Manual) Lymphocytes % (Manual) Monocytes % (Manual) Eosinophils % (Manual) Basophils % (Manual) Nucleated RBC % Seg Neutrophils # 10.5 H Seg Neutrophils # Man Lymphocytes # (Manual) Monocytes # (Manual) Eosinophils # (Manual) Basophils # (Manual) PT INR Fibrinogen dRVVT Confirm Interp Factor V Activity POC ABG pH POC ABG pCO2 POC ABG pO2 ABG pO2 ABG HCO3 ABG Base Excess ABG Hemoglobin Oxyhemoglobin Sodium Potassium Chloride Carbon Dioxide BUN 43 H Creatinine Glucose 124 H POC Glucose 141 H Lactic Acid Calcium 8.3 L Phosphorus Magnesium 1.60 L Direct Bilirubin AST ALT Alkaline Phosphatase Lactate Dehydrogenase Troponin T C-Reactive Protein Total Protein Albumin Prealbumin Triglycerides Cholesterol LDL Cholesterol Direct HDL Cholesterol Urine pH Urine WBC (Auto) Urine Creatinine Urine Total Protein Fluid Total Protein Vancomycin Trough Rheumatoid Factor Complement C4 Miscellaneous Test Crossmatch 12/11/16 12/11/16 12/11/16 11:15 17:59 23:48 WBC RBC Hgb Hct MCV MCH MCHC RDW Plt Count Lymph % (Auto) [place] % (Auto) Lymph # [place] # Baso # Seg Neutrophils % Seg Neuts % (Manual) Lymphocytes % (Manual) Monocytes % (Manual) Eosinophils % (Manual) Basophils % (Manual) Nucleated RBC % Seg Neutrophils # Seg Neutrophils # Man Lymphocytes # (Manual) Monocytes # (Manual) Eosinophils # (Manual) Basophils # (Manual) PT INR Fibrinogen dRVVT Confirm Interp Factor V Activity POC ABG pH POC ABG pCO2 POC ABG pO2 ABG pO2 ABG HCO3 ABG Base Excess ABG Hemoglobin Oxyhemoglobin Sodium Potassium Chloride Carbon Dioxide BUN Creatinine Glucose POC Glucose 188 H 106 H 119 H Lactic Acid Calcium Phosphorus Magnesium Direct Bilirubin AST ALT Alkaline Phosphatase Lactate Dehydrogenase Troponin T C-Reactive Protein Total Protein Albumin Prealbumin Triglycerides Cholesterol LDL Cholesterol Direct HDL Cholesterol Urine pH Urine WBC (Auto) Urine Creatinine Urine Total Protein Fluid Total Protein Vancomycin Trough Rheumatoid Factor Complement C4 Miscellaneous Test Crossmatch 12/12/16 12/12/16 12/12/16 05:00 06:01 12:20 WBC 16.7 H RBC 2.87 L Hgb 8.0 L Hct 24.2 L MCV MCH MCHC RDW 17.6 H Plt Count Lymph % (Auto) [place] % (Auto) Lymph # [place] # 1.2 H Baso # Seg Neutrophils % 75.3 H Seg Neuts % (Manual) Lymphocytes % (Manual) Monocytes % (Manual) Eosinophils % (Manual) Basophils % (Manual) Nucleated RBC % Seg Neutrophils # 12.6 H Seg Neutrophils # Man Lymphocytes # (Manual) Monocytes # (Manual) Eosinophils # (Manual) Basophils # (Manual) PT INR Fibrinogen dRVVT Confirm Interp Factor V Activity POC ABG pH POC ABG pCO2 POC ABG pO2 ABG pO2 ABG HCO3 ABG Base Excess ABG Hemoglobin Oxyhemoglobin Sodium Potassium Chloride Carbon Dioxide BUN Creatinine Glucose POC Glucose 134 H 149 H Lactic Acid Calcium Phosphorus Magnesium Direct Bilirubin AST ALT Alkaline Phosphatase Lactate Dehydrogenase Troponin T C-Reactive Protein Total Protein Albumin Prealbumin Triglycerides Cholesterol LDL Cholesterol Direct HDL Cholesterol Urine pH Urine WBC (Auto) Urine Creatinine Urine Total Protein Fluid Total Protein Vancomycin Trough Rheumatoid Factor Complement C4 Miscellaneous Test Crossmatch 12/12/16 12/12/16 12/12/16 17:38 23:01 Unknown WBC RBC Hgb Hct MCV MCH MCHC RDW Plt Count Lymph % (Auto) [place] % (Auto) Lymph # [place] # Baso # Seg Neutrophils % Seg Neuts % (Manual) Lymphocytes % (Manual) Monocytes % (Manual) Eosinophils % (Manual) Basophils % (Manual) Nucleated RBC % Seg Neutrophils # Seg Neutrophils # Man Lymphocytes # (Manual) Monocytes # (Manual) Eosinophils # (Manual) Basophils # (Manual) PT INR Fibrinogen dRVVT Confirm Interp Factor V Activity POC ABG pH POC ABG pCO2 POC ABG pO2 ABG pO2 ABG HCO3 ABG Base Excess ABG Hemoglobin Oxyhemoglobin Sodium Potassium Chloride Carbon Dioxide BUN 60 H Creatinine 1.3 H Glucose 126 H POC Glucose 127 H 144 H Lactic Acid Calcium Phosphorus Magnesium Direct Bilirubin AST ALT Alkaline Phosphatase Lactate Dehydrogenase Troponin T C-Reactive Protein Total Protein Albumin Prealbumin Triglycerides Cholesterol LDL Cholesterol Direct HDL Cholesterol Urine pH Urine WBC (Auto) Urine Creatinine Urine Total Protein Fluid Total Protein Vancomycin Trough Rheumatoid Factor Complement C4 Miscellaneous Test Crossmatch 12/13/16 12/13/16 12/13/16 04:00 04:00 05:19 WBC 18.7 H RBC 2.89 L Hgb 8.3 L Hct 24.6 L MCV MCH MCHC RDW 17.5 H Plt Count Lymph % (Auto) [place] % (Auto) Lymph # [place] # 1.3 H Baso # Seg Neutrophils % 71.5 H Seg Neuts % (Manual) Lymphocytes % (Manual) Monocytes % (Manual) Eosinophils % (Manual) Basophils % (Manual) Nucleated RBC % Seg Neutrophils # 13.4 H Seg Neutrophils # Man Lymphocytes # (Manual) Monocytes # (Manual) Eosinophils # (Manual) Basophils # (Manual) PT INR Fibrinogen dRVVT Confirm Interp Factor V Activity POC ABG pH POC ABG pCO2 POC ABG pO2 ABG pO2 ABG HCO3 ABG Base Excess ABG Hemoglobin Oxyhemoglobin Sodium Potassium Chloride Carbon Dioxide BUN 73 H Creatinine 1.5 H Glucose 141 H POC Glucose 171 H Lactic Acid Calcium Phosphorus Magnesium Direct Bilirubin AST ALT Alkaline Phosphatase Lactate Dehydrogenase Troponin T C-Reactive Protein Total Protein Albumin Prealbumin Triglycerides Cholesterol LDL Cholesterol Direct HDL Cholesterol Urine pH Urine WBC (Auto) Urine Creatinine Urine Total Protein Fluid Total Protein Vancomycin Trough Rheumatoid Factor Complement C4 Miscellaneous Test Crossmatch 12/13/16 12/13/16 12/14/16 12:28 16:48 00:01 WBC RBC Hgb Hct MCV MCH MCHC RDW Plt Count Lymph % (Auto) [place] % (Auto) Lymph # [place] # Baso # Seg Neutrophils % Seg Neuts % (Manual) Lymphocytes % (Manual) Monocytes % (Manual) Eosinophils % (Manual) Basophils % (Manual) Nucleated RBC % Seg Neutrophils # Seg Neutrophils # Man Lymphocytes # (Manual) Monocytes # (Manual) Eosinophils # (Manual) Basophils # (Manual) PT INR Fibrinogen dRVVT Confirm Interp Factor V Activity POC ABG pH POC ABG pCO2 POC ABG pO2 ABG pO2 ABG HCO3 ABG Base Excess ABG Hemoglobin Oxyhemoglobin Sodium Potassium Chloride Carbon Dioxide BUN Creatinine Glucose POC Glucose 206 H 173 H 139 H Lactic Acid Calcium Phosphorus Magnesium Direct Bilirubin AST ALT Alkaline Phosphatase Lactate Dehydrogenase Troponin T C-Reactive Protein Total Protein Albumin Prealbumin Triglycerides Cholesterol LDL Cholesterol Direct HDL Cholesterol Urine pH Urine WBC (Auto) Urine Creatinine Urine Total Protein Fluid Total Protein Vancomycin Trough Rheumatoid Factor Complement C4 Miscellaneous Test Crossmatch 12/14/16 12/14/16 12/14/16 05:16 06:10 11:17 WBC RBC Hgb Hct MCV MCH MCHC RDW Plt Count Lymph % (Auto) [place] % (Auto) Lymph # [place] # Baso # Seg Neutrophils % Seg Neuts % (Manual) Lymphocytes % (Manual) Monocytes % (Manual) Eosinophils % (Manual) Basophils % (Manual) Nucleated RBC % Seg Neutrophils # Seg Neutrophils # Man Lymphocytes # (Manual) Monocytes # (Manual) Eosinophils # (Manual) Basophils # (Manual) PT INR Fibrinogen dRVVT Confirm Interp Factor V Activity POC ABG pH POC ABG pCO2 POC ABG pO2 ABG pO2 ABG HCO3 ABG Base Excess ABG Hemoglobin Oxyhemoglobin Sodium Potassium Chloride Carbon Dioxide BUN 57 H Creatinine 1.4 H Glucose 135 H POC Glucose 158 H 137 H Lactic Acid Calcium Phosphorus Magnesium Direct Bilirubin AST ALT Alkaline Phosphatase Lactate Dehydrogenase Troponin T C-Reactive Protein Total Protein Albumin Prealbumin Triglycerides Cholesterol LDL Cholesterol Direct HDL Cholesterol Urine pH Urine WBC (Auto) Urine Creatinine Urine Total Protein Fluid Total Protein Vancomycin Trough Rheumatoid Factor Complement C4 Miscellaneous Test Crossmatch 12/14/16 12/14/16 12/15/16 17:52 23:27 04:00 WBC RBC Hgb Hct MCV MCH MCHC RDW Plt Count Lymph % (Auto) [place] % (Auto) Lymph # [place] # Baso # Seg Neutrophils % Seg Neuts % (Manual) Lymphocytes % (Manual) Monocytes % (Manual) Eosinophils % (Manual) Basophils % (Manual) Nucleated RBC % Seg Neutrophils # Seg Neutrophils # Man Lymphocytes # (Manual) Monocytes # (Manual) Eosinophils # (Manual) Basophils # (Manual) PT INR Fibrinogen dRVVT Confirm Interp Factor V Activity POC ABG pH POC ABG pCO2 POC ABG pO2 ABG pO2 ABG HCO3 ABG Base Excess ABG Hemoglobin Oxyhemoglobin Sodium Potassium Chloride 97.9 L Carbon Dioxide BUN 75 H Creatinine 1.6 H Glucose 122 H POC Glucose 149 H 163 H Lactic Acid Calcium Phosphorus 5.20 H Magnesium Direct Bilirubin AST ALT Alkaline Phosphatase Lactate Dehydrogenase Troponin T C-Reactive Protein Total Protein Albumin Prealbumin Triglycerides Cholesterol LDL Cholesterol Direct HDL Cholesterol Urine pH Urine WBC (Auto) Urine Creatinine Urine Total Protein Fluid Total Protein Vancomycin Trough Rheumatoid Factor Complement C4 Miscellaneous Test Crossmatch 12/15/16 12/15/16 12/15/16 05:50 11:24 17:01 WBC RBC Hgb Hct MCV MCH MCHC RDW Plt Count Lymph % (Auto) [place] % (Auto) Lymph # [place] # Baso # Seg Neutrophils % Seg Neuts % (Manual) Lymphocytes % (Manual) Monocytes % (Manual) Eosinophils % (Manual) Basophils % (Manual) Nucleated RBC % Seg Neutrophils # Seg Neutrophils # Man Lymphocytes # (Manual) Monocytes # (Manual) Eosinophils # (Manual) Basophils # (Manual) PT INR Fibrinogen dRVVT Confirm Interp Factor V Activity POC ABG pH POC ABG pCO2 POC ABG pO2 ABG pO2 ABG HCO3 ABG Base Excess ABG Hemoglobin Oxyhemoglobin Sodium Potassium Chloride Carbon Dioxide BUN Creatinine Glucose POC Glucose 150 H 146 H 167 H Lactic Acid Calcium Phosphorus Magnesium Direct Bilirubin AST ALT Alkaline Phosphatase Lactate Dehydrogenase Troponin T C-Reactive Protein Total Protein Albumin Prealbumin Triglycerides Cholesterol LDL Cholesterol Direct HDL Cholesterol Urine pH Urine WBC (Auto) Urine Creatinine Urine Total Protein Fluid Total Protein Vancomycin Trough Rheumatoid Factor Complement C4 Miscellaneous Test Crossmatch 12/15/16 12/16/16 12/16/16 23:34 05:25 11:24 WBC RBC Hgb Hct MCV MCH MCHC RDW Plt Count Lymph % (Auto) [place] % (Auto) Lymph # [place] # Baso # Seg Neutrophils % Seg Neuts % (Manual) Lymphocytes % (Manual) Monocytes % (Manual) Eosinophils % (Manual) Basophils % (Manual) Nucleated RBC % Seg Neutrophils # Seg Neutrophils # Man Lymphocytes # (Manual) Monocytes # (Manual) Eosinophils # (Manual) Basophils # (Manual) PT INR Fibrinogen dRVVT Confirm Interp Factor V Activity POC ABG pH POC ABG pCO2 POC ABG pO2 ABG pO2 ABG HCO3 ABG Base Excess ABG Hemoglobin Oxyhemoglobin Sodium Potassium Chloride Carbon Dioxide BUN Creatinine Glucose POC Glucose 127 H 139 H 165 H Lactic Acid Calcium Phosphorus Magnesium Direct Bilirubin AST ALT Alkaline Phosphatase Lactate Dehydrogenase Troponin T C-Reactive Protein Total Protein Albumin Prealbumin Triglycerides Cholesterol LDL Cholesterol Direct HDL Cholesterol Urine pH Urine WBC (Auto) Urine Creatinine Urine Total Protein Fluid Total Protein Vancomycin Trough Rheumatoid Factor Complement C4 Miscellaneous Test Crossmatch 12/16/16 12/16/16 12/16/16 15:30 16:25 17:31 WBC 17.8 H RBC 2.38 L Hgb 6.4 L Hct 20.3 L MCV MCH 27 L MCHC RDW 17.4 H Plt Count Lymph % (Auto) [place] % (Auto) Lymph # [place] # Baso # Seg Neutrophils % Seg Neuts % (Manual) Lymphocytes % (Manual) Monocytes % (Manual) 10.0 H Eosinophils % (Manual) Basophils % (Manual) Nucleated RBC % Seg Neutrophils # Seg Neutrophils # Man 8.5 H Lymphocytes # (Manual) Monocytes # (Manual) 1.8 H Eosinophils # (Manual) Basophils # (Manual) PT INR Fibrinogen dRVVT Confirm Interp Factor V Activity POC ABG pH POC ABG pCO2 POC ABG pO2 ABG pO2 ABG HCO3 ABG Base Excess ABG Hemoglobin Oxyhemoglobin Sodium Potassium Chloride Carbon Dioxide BUN Creatinine Glucose POC Glucose 176 H Lactic Acid Calcium Phosphorus Magnesium Direct Bilirubin AST ALT Alkaline Phosphatase Lactate Dehydrogenase Troponin T C-Reactive Protein Total Protein Albumin Prealbumin Triglycerides Cholesterol LDL Cholesterol Direct HDL Cholesterol Urine pH Urine WBC (Auto) Urine Creatinine Urine Total Protein Fluid Total Protein Vancomycin Trough Rheumatoid Factor Complement C4 Miscellaneous Test Crossmatch See Detail 12/17/16 12/17/16 12/17/16 00:14 04:00 05:00 WBC 20.0 H RBC 2.99 L Hgb 8.5 L Hct 25.7 L MCV MCH MCHC RDW 17.2 H Plt Count Lymph % (Auto) [place] % (Auto) Lymph # [place] # Baso # Seg Neutrophils % Seg Neuts % (Manual) Lymphocytes % (Manual) Monocytes % (Manual) Eosinophils % (Manual) Basophils % (Manual) Nucleated RBC % Seg Neutrophils # Seg Neutrophils # Man Lymphocytes # (Manual) Monocytes # (Manual) Eosinophils # (Manual) Basophils # (Manual) PT INR Fibrinogen dRVVT Confirm Interp Factor V Activity POC ABG pH POC ABG pCO2 POC ABG pO2 ABG pO2 ABG HCO3 ABG Base Excess ABG Hemoglobin Oxyhemoglobin Sodium Potassium Chloride 97.7 L Carbon Dioxide BUN 73 H Creatinine 1.7 H Glucose 136 H POC Glucose 148 H Lactic Acid Calcium Phosphorus 2.20 L Magnesium 2.70 H Direct Bilirubin AST ALT Alkaline Phosphatase Lactate Dehydrogenase Troponin T C-Reactive Protein Total Protein Albumin Prealbumin Triglycerides Cholesterol LDL Cholesterol Direct HDL Cholesterol Urine pH Urine WBC (Auto) Urine Creatinine Urine Total Protein Fluid Total Protein Vancomycin Trough Rheumatoid Factor Complement C4 Miscellaneous Test Crossmatch 12/17/16 12/17/16 12/17/16 05:39 12:50 16:32 WBC RBC Hgb Hct MCV MCH MCHC RDW Plt Count Lymph % (Auto) [place] % (Auto) Lymph # [place] # Baso # Seg Neutrophils % Seg Neuts % (Manual) Lymphocytes % (Manual) Monocytes % (Manual) Eosinophils % (Manual) Basophils % (Manual) Nucleated RBC % Seg Neutrophils # Seg Neutrophils # Man Lymphocytes # (Manual) Monocytes # (Manual) Eosinophils # (Manual) Basophils # (Manual) PT INR Fibrinogen dRVVT Confirm Interp Factor V Activity POC ABG pH POC ABG pCO2 POC ABG pO2 ABG pO2 ABG HCO3 ABG Base Excess ABG Hemoglobin Oxyhemoglobin Sodium Potassium Chloride Carbon Dioxide BUN Creatinine Glucose POC Glucose 162 H 146 H 169 H Lactic Acid Calcium Phosphorus Magnesium Direct Bilirubin AST ALT Alkaline Phosphatase Lactate Dehydrogenase Troponin T C-Reactive Protein Total Protein Albumin Prealbumin Triglycerides Cholesterol LDL Cholesterol Direct HDL Cholesterol Urine pH Urine WBC (Auto) Urine Creatinine Urine Total Protein Fluid Total Protein Vancomycin Trough Rheumatoid Factor Complement C4 Miscellaneous Test Crossmatch 12/17/16 12/18/16 12/18/16 23:57 05:00 05:32 WBC RBC Hgb Hct MCV MCH MCHC RDW Plt Count Lymph % (Auto) [place] % (Auto) Lymph # [place] # Baso # Seg Neutrophils % Seg Neuts % (Manual) Lymphocytes % (Manual) Monocytes % (Manual) Eosinophils % (Manual) Basophils % (Manual) Nucleated RBC % Seg Neutrophils # Seg Neutrophils # Man Lymphocytes # (Manual) Monocytes # (Manual) Eosinophils # (Manual) Basophils # (Manual) PT INR Fibrinogen dRVVT Confirm Interp Factor V Activity POC ABG pH POC ABG pCO2 POC ABG pO2 ABG pO2 ABG HCO3 ABG Base Excess ABG Hemoglobin Oxyhemoglobin Sodium Potassium Chloride 97.0 L Carbon Dioxide BUN 63 H Creatinine 1.4 H Glucose 174 H POC Glucose 145 H 201 H Lactic Acid Calcium Phosphorus 1.70 L D Magnesium Direct Bilirubin AST ALT Alkaline Phosphatase 257 H Lactate Dehydrogenase Troponin T C-Reactive Protein Total Protein 5.9 L Albumin 1.8 L Prealbumin Triglycerides Cholesterol LDL Cholesterol Direct HDL Cholesterol Urine pH Urine WBC (Auto) Urine Creatinine Urine Total Protein Fluid Total Protein Vancomycin Trough Rheumatoid Factor Complement C4 Miscellaneous Test Crossmatch 12/18/16 12/18/16 12/18/16 11:43 16:52 23:52 WBC RBC Hgb Hct MCV MCH MCHC RDW Plt Count Lymph % (Auto) [place] % (Auto) Lymph # [place] # Baso # Seg Neutrophils % Seg Neuts % (Manual) Lymphocytes % (Manual) Monocytes % (Manual) Eosinophils % (Manual) Basophils % (Manual) Nucleated RBC % Seg Neutrophils # Seg Neutrophils # Man Lymphocytes # (Manual) Monocytes # (Manual) Eosinophils # (Manual) Basophils # (Manual) PT INR Fibrinogen dRVVT Confirm Interp Factor V Activity POC ABG pH POC ABG pCO2 POC ABG pO2 ABG pO2 ABG HCO3 ABG Base Excess ABG Hemoglobin Oxyhemoglobin Sodium Potassium Chloride Carbon Dioxide BUN Creatinine Glucose POC Glucose 177 H 110 H 162 H Lactic Acid Calcium Phosphorus Magnesium Direct Bilirubin AST ALT Alkaline Phosphatase Lactate Dehydrogenase Troponin T C-Reactive Protein Total Protein Albumin Prealbumin Triglycerides Cholesterol LDL Cholesterol Direct HDL Cholesterol Urine pH Urine WBC (Auto) Urine Creatinine Urine Total Protein Fluid Total Protein Vancomycin Trough Rheumatoid Factor Complement C4 Miscellaneous Test Crossmatch 12/19/16 12/19/16 12/19/16 05:02 05:24 09:30 WBC 20.1 H RBC 2.73 L Hgb 7.6 L Hct 23.6 L MCV MCH MCHC RDW 17.6 H Plt Count Lymph % (Auto) [place] % (Auto) Lymph # [place] # Baso # Seg Neutrophils % Seg Neuts % (Manual) Lymphocytes % (Manual) 13.0 L Monocytes % (Manual) Eosinophils % (Manual) Basophils % (Manual) Nucleated RBC % 1.0 H Seg Neutrophils # Seg Neutrophils # Man 12.9 H Lymphocytes # (Manual) Monocytes # (Manual) 1.4 H Eosinophils # (Manual) Basophils # (Manual) 0.2 H PT INR Fibrinogen dRVVT Confirm Interp Factor V Activity POC ABG pH POC ABG pCO2 POC ABG pO2 ABG pO2 ABG HCO3 ABG Base Excess ABG Hemoglobin Oxyhemoglobin Sodium Potassium Chloride 97.8 L Carbon Dioxide BUN 84 H Creatinine 1.6 H Glucose 133 H POC Glucose 134 H Lactic Acid Calcium Phosphorus Magnesium Direct Bilirubin AST ALT Alkaline Phosphatase Lactate Dehydrogenase Troponin T C-Reactive Protein Total Protein Albumin Prealbumin Triglycerides Cholesterol LDL Cholesterol Direct HDL Cholesterol Urine pH Urine WBC (Auto) Urine Creatinine Urine Total Protein Fluid Total Protein Vancomycin Trough Rheumatoid Factor Complement C4 Miscellaneous Test Crossmatch 12/19/16 12/19/16 12/19/16 09:36 11:12 18:29 WBC RBC Hgb Hct MCV MCH MCHC RDW Plt Count Lymph % (Auto) [place] % (Auto) Lymph # [place] # Baso # Seg Neutrophils % Seg Neuts % (Manual) Lymphocytes % (Manual) Monocytes % (Manual) Eosinophils % (Manual) Basophils % (Manual) Nucleated RBC % Seg Neutrophils # Seg Neutrophils # Man Lymphocytes # (Manual) Monocytes # (Manual) Eosinophils # (Manual) Basophils # (Manual) PT INR Fibrinogen dRVVT Confirm Interp Factor V Activity POC ABG pH 7.503 H POC ABG pCO2 30.1 L POC ABG pO2 ABG pO2 ABG HCO3 ABG Base Excess ABG Hemoglobin Oxyhemoglobin Sodium Potassium Chloride Carbon Dioxide BUN Creatinine Glucose POC Glucose 138 H 156 H Lactic Acid Calcium Phosphorus Magnesium Direct Bilirubin AST ALT Alkaline Phosphatase Lactate Dehydrogenase Troponin T C-Reactive Protein Total Protein Albumin Prealbumin Triglycerides Cholesterol LDL Cholesterol Direct HDL Cholesterol Urine pH Urine WBC (Auto) Urine Creatinine Urine Total Protein Fluid Total Protein Vancomycin Trough Rheumatoid Factor Complement C4 Miscellaneous Test Crossmatch 12/20/16 12/20/16 12/20/16 00:03 06:17 07:07 WBC RBC Hgb Hct MCV MCH MCHC RDW Plt Count Lymph % (Auto) [place] % (Auto) Lymph # [place] # Baso # Seg Neutrophils % Seg Neuts % (Manual) Lymphocytes % (Manual) Monocytes % (Manual) Eosinophils % (Manual) Basophils % (Manual) Nucleated RBC % Seg Neutrophils # Seg Neutrophils # Man Lymphocytes # (Manual) Monocytes # (Manual) Eosinophils # (Manual) Basophils # (Manual) PT INR Fibrinogen dRVVT Confirm Interp Factor V Activity POC ABG pH POC ABG pCO2 POC ABG pO2 ABG pO2 ABG HCO3 ABG Base Excess ABG Hemoglobin Oxyhemoglobin Sodium Potassium Chloride 97.1 L Carbon Dioxide 20 L BUN 97 H Creatinine 1.8 H Glucose 153 H POC Glucose 152 H 175 H Lactic Acid Calcium Phosphorus Magnesium Direct Bilirubin AST ALT Alkaline Phosphatase Lactate Dehydrogenase Troponin T C-Reactive Protein Total Protein Albumin Prealbumin Triglycerides Cholesterol LDL Cholesterol Direct HDL Cholesterol Urine pH Urine WBC (Auto) Urine Creatinine Urine Total Protein Fluid Total Protein Vancomycin Trough Rheumatoid Factor Complement C4 Miscellaneous Test Crossmatch 12/20/16 12/20/16 12/20/16 12:00 17:42 23:53 WBC RBC Hgb Hct MCV MCH MCHC RDW Plt Count Lymph % (Auto) [place] % (Auto) Lymph # [place] # Baso # Seg Neutrophils % Seg Neuts % (Manual) Lymphocytes % (Manual) Monocytes % (Manual) Eosinophils % (Manual) Basophils % (Manual) Nucleated RBC % Seg Neutrophils # Seg Neutrophils # Man Lymphocytes # (Manual) Monocytes # (Manual) Eosinophils # (Manual) Basophils # (Manual) PT INR Fibrinogen dRVVT Confirm Interp Factor V Activity POC ABG pH POC ABG pCO2 POC ABG pO2 ABG pO2 ABG HCO3 ABG Base Excess ABG Hemoglobin Oxyhemoglobin Sodium Potassium Chloride Carbon Dioxide BUN Creatinine Glucose POC Glucose 141 H 156 H 132 H Lactic Acid Calcium Phosphorus Magnesium Direct Bilirubin AST ALT Alkaline Phosphatase Lactate Dehydrogenase Troponin T C-Reactive Protein Total Protein Albumin Prealbumin Triglycerides Cholesterol LDL Cholesterol Direct HDL Cholesterol Urine pH Urine WBC (Auto) Urine Creatinine Urine Total Protein Fluid Total Protein Vancomycin Trough Rheumatoid Factor Complement C4 Miscellaneous Test Crossmatch 12/21/16 12/21/16 12/21/16 05:49 08:50 12:19 WBC RBC Hgb Hct MCV MCH MCHC RDW Plt Count Lymph % (Auto) [place] % (Auto) Lymph # [place] # Baso # Seg Neutrophils % Seg Neuts % (Manual) Lymphocytes % (Manual) Monocytes % (Manual) Eosinophils % (Manual) Basophils % (Manual) Nucleated RBC % Seg Neutrophils # Seg Neutrophils # Man Lymphocytes # (Manual) Monocytes # (Manual) Eosinophils # (Manual) Basophils # (Manual) PT INR Fibrinogen dRVVT Confirm Interp Factor V Activity POC ABG pH POC ABG pCO2 POC ABG pO2 ABG pO2 ABG HCO3 ABG Base Excess ABG Hemoglobin Oxyhemoglobin Sodium Potassium 5.2 H D Chloride Carbon Dioxide BUN 63 H Creatinine Glucose 122 H POC Glucose 132 H 136 H Lactic Acid Calcium 8.3 L Phosphorus Magnesium Direct Bilirubin AST ALT Alkaline Phosphatase Lactate Dehydrogenase Troponin T C-Reactive Protein Total Protein Albumin Prealbumin Triglycerides Cholesterol LDL Cholesterol Direct HDL Cholesterol Urine pH Urine WBC (Auto) Urine Creatinine Urine Total Protein Fluid Total Protein Vancomycin Trough Rheumatoid Factor Complement C4 Miscellaneous Test Crossmatch 12/21/16 12/21/16 12/22/16 17:22 23:58 05:49 WBC RBC Hgb Hct MCV MCH MCHC RDW Plt Count Lymph % (Auto) [place] % (Auto) Lymph # [place] # Baso # Seg Neutrophils % Seg Neuts % (Manual) Lymphocytes % (Manual) Monocytes % (Manual) Eosinophils % (Manual) Basophils % (Manual) Nucleated RBC % Seg Neutrophils # Seg Neutrophils # Man Lymphocytes # (Manual) Monocytes # (Manual) Eosinophils # (Manual) Basophils # (Manual) PT INR Fibrinogen dRVVT Confirm Interp Factor V Activity POC ABG pH POC ABG pCO2 POC ABG pO2 ABG pO2 ABG HCO3 ABG Base Excess ABG Hemoglobin Oxyhemoglobin Sodium Potassium Chloride Carbon Dioxide BUN Creatinine Glucose POC Glucose 135 H 149 H 140 H Lactic Acid Calcium Phosphorus Magnesium Direct Bilirubin AST ALT Alkaline Phosphatase Lactate Dehydrogenase Troponin T C-Reactive Protein Total Protein Albumin Prealbumin Triglycerides Cholesterol LDL Cholesterol Direct HDL Cholesterol Urine pH Urine WBC (Auto) Urine Creatinine Urine Total Protein Fluid Total Protein Vancomycin Trough Rheumatoid Factor Complement C4 Miscellaneous Test Crossmatch 12/22/16 12/22/16 12/22/16 06:10 11:17 17:31 WBC RBC Hgb Hct MCV MCH MCHC RDW Plt Count Lymph % (Auto) [place] % (Auto) Lymph # [place] # Baso # Seg Neutrophils % Seg Neuts % (Manual) Lymphocytes % (Manual) Monocytes % (Manual) Eosinophils % (Manual) Basophils % (Manual) Nucleated RBC % Seg Neutrophils # Seg Neutrophils # Man Lymphocytes # (Manual) Monocytes # (Manual) Eosinophils # (Manual) Basophils # (Manual) PT INR Fibrinogen dRVVT Confirm Interp Factor V Activity POC ABG pH POC ABG pCO2 POC ABG pO2 ABG pO2 ABG HCO3 ABG Base Excess ABG Hemoglobin Oxyhemoglobin Sodium Potassium Chloride Carbon Dioxide BUN 76 H Creatinine 1.5 H Glucose 241 H POC Glucose 193 H 148 H Lactic Acid Calcium Phosphorus Magnesium Direct Bilirubin AST ALT Alkaline Phosphatase Lactate Dehydrogenase Troponin T C-Reactive Protein Total Protein Albumin Prealbumin Triglycerides Cholesterol LDL Cholesterol Direct HDL Cholesterol Urine pH Urine WBC (Auto) Urine Creatinine Urine Total Protein Fluid Total Protein Vancomycin Trough Rheumatoid Factor Complement C4 Miscellaneous Test Crossmatch 12/22/16 12/23/16 12/23/16 23:58 05:00 05:26 WBC RBC Hgb Hct MCV MCH MCHC RDW Plt Count Lymph % (Auto) [place] % (Auto) Lymph # [place] # Baso # Seg Neutrophils % Seg Neuts % (Manual) Lymphocytes % (Manual) Monocytes % (Manual) Eosinophils % (Manual) Basophils % (Manual) Nucleated RBC % Seg Neutrophils # Seg Neutrophils # Man Lymphocytes # (Manual) Monocytes # (Manual) Eosinophils # (Manual) Basophils # (Manual) PT INR Fibrinogen dRVVT Confirm Interp Factor V Activity POC ABG pH POC ABG pCO2 POC ABG pO2 ABG pO2 ABG HCO3 ABG Base Excess ABG Hemoglobin Oxyhemoglobin Sodium Potassium Chloride Carbon Dioxide BUN 49 H Creatinine Glucose 143 H POC Glucose 165 H 154 H Lactic Acid Calcium 8.2 L Phosphorus Magnesium 1.60 L Direct Bilirubin AST ALT Alkaline Phosphatase Lactate Dehydrogenase Troponin T C-Reactive Protein Total Protein Albumin Prealbumin Triglycerides Cholesterol LDL Cholesterol Direct HDL Cholesterol Urine pH Urine WBC (Auto) Urine Creatinine Urine Total Protein Fluid Total Protein Vancomycin Trough Rheumatoid Factor Complement C4 Miscellaneous Test Crossmatch 12/23/16 12/23/16 12/24/16 12:35 17:01 00:01 WBC RBC Hgb Hct MCV MCH MCHC RDW Plt Count Lymph % (Auto) [place] % (Auto) Lymph # [place] # Baso # Seg Neutrophils % Seg Neuts % (Manual) Lymphocytes % (Manual) Monocytes % (Manual) Eosinophils % (Manual) Basophils % (Manual) Nucleated RBC % Seg Neutrophils # Seg Neutrophils # Man Lymphocytes # (Manual) Monocytes # (Manual) Eosinophils # (Manual) Basophils # (Manual) PT INR Fibrinogen dRVVT Confirm Interp Factor V Activity POC ABG pH POC ABG pCO2 POC ABG pO2 ABG pO2 ABG HCO3 ABG Base Excess ABG Hemoglobin Oxyhemoglobin Sodium Potassium Chloride Carbon Dioxide BUN Creatinine Glucose POC Glucose 164 H 149 H 135 H Lactic Acid Calcium Phosphorus Magnesium Direct Bilirubin AST ALT Alkaline Phosphatase Lactate Dehydrogenase Troponin T C-Reactive Protein Total Protein Albumin Prealbumin Triglycerides Cholesterol LDL Cholesterol Direct HDL Cholesterol Urine pH Urine WBC (Auto) Urine Creatinine Urine Total Protein Fluid Total Protein Vancomycin Trough Rheumatoid Factor Complement C4 Miscellaneous Test Crossmatch 12/24/16 12/24/16 12/24/16 05:41 07:01 11:38 WBC RBC Hgb Hct MCV MCH MCHC RDW Plt Count Lymph % (Auto) [place] % (Auto) Lymph # [place] # Baso # Seg Neutrophils % Seg Neuts % (Manual) Lymphocytes % (Manual) Monocytes % (Manual) Eosinophils % (Manual) Basophils % (Manual) Nucleated RBC % Seg Neutrophils # Seg Neutrophils # Man Lymphocytes # (Manual) Monocytes # (Manual) Eosinophils # (Manual) Basophils # (Manual) PT INR Fibrinogen dRVVT Confirm Interp Factor V Activity POC ABG pH POC ABG pCO2 POC ABG pO2 ABG pO2 ABG HCO3 ABG Base Excess ABG Hemoglobin Oxyhemoglobin Sodium Potassium Chloride Carbon Dioxide BUN 72 H Creatinine 1.3 H Glucose 130 H POC Glucose 132 H 156 H Lactic Acid Calcium 8.2 L Phosphorus Magnesium Direct Bilirubin AST ALT Alkaline Phosphatase Lactate Dehydrogenase Troponin T C-Reactive Protein Total Protein Albumin Prealbumin Triglycerides Cholesterol LDL Cholesterol Direct HDL Cholesterol Urine pH Urine WBC (Auto) Urine Creatinine Urine Total Protein Fluid Total Protein Vancomycin Trough Rheumatoid Factor Complement C4 Miscellaneous Test Crossmatch 12/24/16 12/25/16 12/25/16 17:53 00:23 05:45 WBC RBC Hgb Hct MCV MCH MCHC RDW Plt Count Lymph % (Auto) [place] % (Auto) Lymph # [place] # Baso # Seg Neutrophils % Seg Neuts % (Manual) Lymphocytes % (Manual) Monocytes % (Manual) Eosinophils % (Manual) Basophils % (Manual) Nucleated RBC % Seg Neutrophils # Seg Neutrophils # Man Lymphocytes # (Manual) Monocytes # (Manual) Eosinophils # (Manual) Basophils # (Manual) PT INR Fibrinogen dRVVT Confirm Interp Factor V Activity POC ABG pH POC ABG pCO2 POC ABG pO2 ABG pO2 ABG HCO3 ABG Base Excess ABG Hemoglobin Oxyhemoglobin Sodium 146 H Potassium Chloride Carbon Dioxide BUN 51 H Creatinine Glucose 109 H POC Glucose 169 H 117 H Lactic Acid Calcium Phosphorus Magnesium Direct Bilirubin AST ALT Alkaline Phosphatase Lactate Dehydrogenase Troponin T C-Reactive Protein Total Protein Albumin Prealbumin Triglycerides Cholesterol LDL Cholesterol Direct HDL Cholesterol Urine pH Urine WBC (Auto) Urine Creatinine Urine Total Protein Fluid Total Protein Vancomycin Trough Rheumatoid Factor Complement C4 Miscellaneous Test Crossmatch 12/25/16 12/25/16 12/25/16 06:43 11:29 17:14 WBC RBC Hgb Hct MCV MCH MCHC RDW Plt Count Lymph % (Auto) [place] % (Auto) Lymph # [place] # Baso # Seg Neutrophils % Seg Neuts % (Manual) Lymphocytes % (Manual) Monocytes % (Manual) Eosinophils % (Manual) Basophils % (Manual) Nucleated RBC % Seg Neutrophils # Seg Neutrophils # Man Lymphocytes # (Manual) Monocytes # (Manual) Eosinophils # (Manual) Basophils # (Manual) PT INR Fibrinogen dRVVT Confirm Interp Factor V Activity POC ABG pH POC ABG pCO2 POC ABG pO2 ABG pO2 ABG HCO3 ABG Base Excess ABG Hemoglobin Oxyhemoglobin Sodium Potassium Chloride Carbon Dioxide BUN Creatinine Glucose POC Glucose 117 H 128 H 120 H Lactic Acid Calcium Phosphorus Magnesium Direct Bilirubin AST ALT Alkaline Phosphatase Lactate Dehydrogenase Troponin T C-Reactive Protein Total Protein Albumin Prealbumin Triglycerides Cholesterol LDL Cholesterol Direct HDL Cholesterol Urine pH Urine WBC (Auto) Urine Creatinine Urine Total Protein Fluid Total Protein Vancomycin Trough Rheumatoid Factor Complement C4 Miscellaneous Test Crossmatch 12/25/16 12/26/16 12/26/16 23:54 05:40 05:50 WBC 16.2 H RBC 2.32 L Hgb 6.2 L Hct 20.1 L MCV MCH 27 L MCHC RDW 18.6 H Plt Count Lymph % (Auto) [place] % (Auto) Lymph # [place] # Baso # Seg Neutrophils % Seg Neuts % (Manual) Lymphocytes % (Manual) Monocytes % (Manual) Eosinophils % (Manual) Basophils % (Manual) Nucleated RBC % Seg Neutrophils # Seg Neutrophils # Man Lymphocytes # (Manual) Monocytes # (Manual) Eosinophils # (Manual) Basophils # (Manual) PT INR Fibrinogen dRVVT Confirm Interp Factor V Activity POC ABG pH POC ABG pCO2 POC ABG pO2 ABG pO2 ABG HCO3 ABG Base Excess ABG Hemoglobin Oxyhemoglobin Sodium Potassium Chloride Carbon Dioxide BUN Creatinine Glucose POC Glucose 126 H 132 H Lactic Acid Calcium Phosphorus Magnesium Direct Bilirubin AST ALT Alkaline Phosphatase Lactate Dehydrogenase Troponin T C-Reactive Protein Total Protein Albumin Prealbumin Triglycerides Cholesterol LDL Cholesterol Direct HDL Cholesterol Urine pH Urine WBC (Auto) Urine Creatinine Urine Total Protein Fluid Total Protein Vancomycin Trough Rheumatoid Factor Complement C4 Miscellaneous Test Crossmatch 12/26/16 12/26/16 12/26/16 05:50 12:17 12:33 WBC RBC Hgb Hct MCV MCH MCHC RDW Plt Count Lymph % (Auto) [place] % (Auto) Lymph # [place] # Baso # Seg Neutrophils % Seg Neuts % (Manual) Lymphocytes % (Manual) Monocytes % (Manual) Eosinophils % (Manual) Basophils % (Manual) Nucleated RBC % Seg Neutrophils # Seg Neutrophils # Man Lymphocytes # (Manual) Monocytes # (Manual) Eosinophils # (Manual) Basophils # (Manual) PT INR Fibrinogen dRVVT Confirm Interp Factor V Activity POC ABG pH POC ABG pCO2 POC ABG pO2 ABG pO2 ABG HCO3 ABG Base Excess ABG Hemoglobin Oxyhemoglobin Sodium Potassium Chloride Carbon Dioxide BUN 73 H Creatinine 1.3 H Glucose 113 H POC Glucose 117 H Lactic Acid Calcium Phosphorus Magnesium Direct Bilirubin AST ALT Alkaline Phosphatase Lactate Dehydrogenase Troponin T C-Reactive Protein Total Protein Albumin Prealbumin Triglycerides Cholesterol LDL Cholesterol Direct HDL Cholesterol Urine pH Urine WBC (Auto) Urine Creatinine Urine Total Protein Fluid Total Protein Vancomycin Trough Rheumatoid Factor Complement C4 Miscellaneous Test Crossmatch See Detail 12/26/16 12/26/16 12/27/16 20:00 23:21 05:00 WBC RBC Hgb 8.4 L Hct 26.3 L D MCV MCH MCHC RDW Plt Count Lymph % (Auto) [place] % (Auto) Lymph # [place] # Baso # Seg Neutrophils % Seg Neuts % (Manual) Lymphocytes % (Manual) Monocytes % (Manual) Eosinophils % (Manual) Basophils % (Manual) Nucleated RBC % Seg Neutrophils # Seg Neutrophils # Man Lymphocytes # (Manual) Monocytes # (Manual) Eosinophils # (Manual) Basophils # (Manual) PT INR Fibrinogen dRVVT Confirm Interp Factor V Activity POC ABG pH POC ABG pCO2 POC ABG pO2 ABG pO2 ABG HCO3 ABG Base Excess ABG Hemoglobin Oxyhemoglobin Sodium Potassium Chloride Carbon Dioxide BUN 85 H Creatinine 1.6 H Glucose 118 H POC Glucose 124 H Lactic Acid Calcium Phosphorus 4.80 H Magnesium Direct Bilirubin AST ALT Alkaline Phosphatase Lactate Dehydrogenase Troponin T C-Reactive Protein Total Protein Albumin Prealbumin Triglycerides Cholesterol LDL Cholesterol Direct HDL Cholesterol Urine pH Urine WBC (Auto) Urine Creatinine Urine Total Protein Fluid Total Protein Vancomycin Trough Rheumatoid Factor Complement C4 Miscellaneous Test Crossmatch 12/27/16 12/27/16 12/27/16 05:00 05:35 12:24 WBC RBC Hgb 7.6 L Hct 22.8 L MCV MCH MCHC RDW Plt Count Lymph % (Auto) [place] % (Auto) Lymph # [place] # Baso # Seg Neutrophils % Seg Neuts % (Manual) Lymphocytes % (Manual) Monocytes % (Manual) Eosinophils % (Manual) Basophils % (Manual) Nucleated RBC % Seg Neutrophils # Seg Neutrophils # Man Lymphocytes # (Manual) Monocytes # (Manual) Eosinophils # (Manual) Basophils # (Manual) PT INR Fibrinogen dRVVT Confirm Interp Factor V Activity POC ABG pH POC ABG pCO2 POC ABG pO2 ABG pO2 ABG HCO3 ABG Base Excess ABG Hemoglobin Oxyhemoglobin Sodium Potassium Chloride Carbon Dioxide BUN Creatinine Glucose POC Glucose 115 H 131 H Lactic Acid Calcium Phosphorus Magnesium Direct Bilirubin AST ALT Alkaline Phosphatase Lactate Dehydrogenase Troponin T C-Reactive Protein Total Protein Albumin Prealbumin Triglycerides Cholesterol LDL Cholesterol Direct HDL Cholesterol Urine pH Urine WBC (Auto) Urine Creatinine Urine Total Protein Fluid Total Protein Vancomycin Trough Rheumatoid Factor Complement C4 Miscellaneous Test Crossmatch 12/27/16 12/28/16 12/28/16 17:16 00:18 04:00 WBC RBC Hgb Hct MCV MCH MCHC RDW Plt Count Lymph % (Auto) [place] % (Auto) Lymph # [place] # Baso # Seg Neutrophils % Seg Neuts % (Manual) Lymphocytes % (Manual) Monocytes % (Manual) Eosinophils % (Manual) Basophils % (Manual) Nucleated RBC % Seg Neutrophils # Seg Neutrophils # Man Lymphocytes # (Manual) Monocytes # (Manual) Eosinophils # (Manual) Basophils # (Manual) PT INR Fibrinogen dRVVT Confirm Interp Factor V Activity POC ABG pH POC ABG pCO2 POC ABG pO2 ABG pO2 ABG HCO3 ABG Base Excess ABG Hemoglobin Oxyhemoglobin Sodium Potassium 3.5 L Chloride Carbon Dioxide BUN 57 H Creatinine Glucose 118 H POC Glucose 136 H 120 H Lactic Acid Calcium 8.3 L Phosphorus Magnesium Direct Bilirubin AST ALT Alkaline Phosphatase Lactate Dehydrogenase Troponin T C-Reactive Protein Total Protein Albumin Prealbumin Triglycerides Cholesterol LDL Cholesterol Direct HDL Cholesterol Urine pH Urine WBC (Auto) Urine Creatinine Urine Total Protein Fluid Total Protein Vancomycin Trough Rheumatoid Factor Complement C4 Miscellaneous Test Crossmatch 12/28/16 12/28/16 12/28/16 04:00 05:11 08:30 WBC 17.0 H RBC 2.58 L Hgb 7.1 L Hct 22.0 L MCV MCH MCHC RDW 17.6 H Plt Count Lymph % (Auto) 12.2 L [place] % (Auto) Lymph # [place] # 1.1 H Baso # Seg Neutrophils % 80.5 H Seg Neuts % (Manual) Lymphocytes % (Manual) Monocytes % (Manual) Eosinophils % (Manual) Basophils % (Manual) Nucleated RBC % Seg Neutrophils # 13.7 H Seg Neutrophils # Man Lymphocytes # (Manual) Monocytes # (Manual) Eosinophils # (Manual) Basophils # (Manual) PT 16.1 H INR 1.23 H Fibrinogen dRVVT Confirm Interp Factor V Activity POC ABG pH POC ABG pCO2 POC ABG pO2 ABG pO2 ABG HCO3 ABG Base Excess ABG Hemoglobin Oxyhemoglobin Sodium Potassium Chloride Carbon Dioxide BUN Creatinine Glucose POC Glucose 122 H Lactic Acid Calcium Phosphorus Magnesium Direct Bilirubin AST ALT Alkaline Phosphatase Lactate Dehydrogenase Troponin T C-Reactive Protein Total Protein Albumin Prealbumin Triglycerides Cholesterol LDL Cholesterol Direct HDL Cholesterol Urine pH Urine WBC (Auto) Urine Creatinine Urine Total Protein Fluid Total Protein Vancomycin Trough Rheumatoid Factor Complement C4 Miscellaneous Test Crossmatch 12/28/16 12/28/16 12/28/16 12:27 16:32 23:46 WBC RBC Hgb Hct MCV MCH MCHC RDW Plt Count Lymph % (Auto) [place] % (Auto) Lymph # [place] # Baso # Seg Neutrophils % Seg Neuts % (Manual) Lymphocytes % (Manual) Monocytes % (Manual) Eosinophils % (Manual) Basophils % (Manual) Nucleated RBC % Seg Neutrophils # Seg Neutrophils # Man Lymphocytes # (Manual) Monocytes # (Manual) Eosinophils # (Manual) Basophils # (Manual) PT INR Fibrinogen dRVVT Confirm Interp Factor V Activity POC ABG pH POC ABG pCO2 POC ABG pO2 ABG pO2 ABG HCO3 ABG Base Excess ABG Hemoglobin Oxyhemoglobin Sodium Potassium Chloride Carbon Dioxide BUN Creatinine Glucose POC Glucose 127 H 117 H 108 H Lactic Acid Calcium Phosphorus Magnesium Direct Bilirubin AST ALT Alkaline Phosphatase Lactate Dehydrogenase Troponin T C-Reactive Protein Total Protein Albumin Prealbumin Triglycerides Cholesterol LDL Cholesterol Direct HDL Cholesterol Urine pH Urine WBC (Auto) Urine Creatinine Urine Total Protein Fluid Total Protein Vancomycin Trough Rheumatoid Factor Complement C4 Miscellaneous Test Crossmatch 12/29/16 12/29/16 12/29/16 05:15 05:15 05:32 WBC RBC Hgb Hct MCV MCH MCHC RDW Plt Count Lymph % (Auto) [place] % (Auto) Lymph # [place] # Baso # Seg Neutrophils % Seg Neuts % (Manual) Lymphocytes % (Manual) Monocytes % (Manual) Eosinophils % (Manual) Basophils % (Manual) Nucleated RBC % Seg Neutrophils # Seg Neutrophils # Man Lymphocytes # (Manual) Monocytes # (Manual) Eosinophils # (Manual) Basophils # (Manual) PT INR Fibrinogen dRVVT Confirm Interp Factor V Activity POC ABG pH POC ABG pCO2 POC ABG pO2 ABG pO2 ABG HCO3 ABG Base Excess ABG Hemoglobin Oxyhemoglobin Sodium Potassium Chloride Carbon Dioxide BUN 74 H Creatinine 1.6 H Glucose 111 H POC Glucose 123 H Lactic Acid Calcium Phosphorus Magnesium Direct Bilirubin AST ALT Alkaline Phosphatase Lactate Dehydrogenase Troponin T C-Reactive Protein Total Protein Albumin Prealbumin 0.110 L Triglycerides Cholesterol LDL Cholesterol Direct HDL Cholesterol Urine pH Urine WBC (Auto) Urine Creatinine Urine Total Protein Fluid Total Protein Vancomycin Trough Rheumatoid Factor Complement C4 Miscellaneous Test Crossmatch 12/29/16 12/29/16 12/29/16 11:43 13:45 14:00 WBC 13.8 H RBC 2.26 L Hgb 6.3 L Hct 20.4 L MCV MCH MCHC RDW 18.3 H Plt Count Lymph % (Auto) [place] % (Auto) Lymph # [place] # 0.9 H Baso # Seg Neutrophils % 78.6 H Seg Neuts % (Manual) Lymphocytes % (Manual) Monocytes % (Manual) Eosinophils % (Manual) Basophils % (Manual) Nucleated RBC % Seg Neutrophils # 10.8 H Seg Neutrophils # Man Lymphocytes # (Manual) Monocytes # (Manual) Eosinophils # (Manual) Basophils # (Manual) PT INR Fibrinogen dRVVT Confirm Interp Factor V Activity POC ABG pH POC ABG pCO2 POC ABG pO2 ABG pO2 ABG HCO3 ABG Base Excess ABG Hemoglobin Oxyhemoglobin Sodium Potassium Chloride Carbon Dioxide BUN Creatinine Glucose POC Glucose 133 H Lactic Acid Calcium Phosphorus Magnesium Direct Bilirubin AST ALT Alkaline Phosphatase Lactate Dehydrogenase Troponin T C-Reactive Protein Total Protein Albumin Prealbumin Triglycerides Cholesterol LDL Cholesterol Direct HDL Cholesterol Urine pH Urine WBC (Auto) Urine Creatinine Urine Total Protein Fluid Total Protein Vancomycin Trough Rheumatoid Factor Complement C4 Miscellaneous Test Crossmatch See Detail 12/29/16 12/29/16 12/29/16 17:03 23:15 23:22 WBC RBC Hgb 7.3 L Hct 22.3 L MCV MCH MCHC RDW Plt Count Lymph % (Auto) [place] % (Auto) Lymph # [place] # Baso # Seg Neutrophils % Seg Neuts % (Manual) Lymphocytes % (Manual) Monocytes % (Manual) Eosinophils % (Manual) Basophils % (Manual) Nucleated RBC % Seg Neutrophils # Seg Neutrophils # Man Lymphocytes # (Manual) Monocytes # (Manual) Eosinophils # (Manual) Basophils # (Manual) PT INR Fibrinogen dRVVT Confirm Interp Factor V Activity POC ABG pH POC ABG pCO2 POC ABG pO2 ABG pO2 ABG HCO3 ABG Base Excess ABG Hemoglobin Oxyhemoglobin Sodium Potassium Chloride Carbon Dioxide BUN Creatinine Glucose POC Glucose 139 H 120 H Lactic Acid Calcium Phosphorus Magnesium Direct Bilirubin AST ALT Alkaline Phosphatase Lactate Dehydrogenase Troponin T C-Reactive Protein Total Protein Albumin Prealbumin Triglycerides Cholesterol LDL Cholesterol Direct HDL Cholesterol Urine pH Urine WBC (Auto) Urine Creatinine Urine Total Protein Fluid Total Protein Vancomycin Trough Rheumatoid Factor Complement C4 Miscellaneous Test Crossmatch 12/30/16 12/30/16 12/30/16 04:20 04:20 05:43 WBC 15.6 H RBC 2.81 L Hgb 8.0 L Hct 24.0 L MCV MCH MCHC RDW 16.9 H Plt Count Lymph % (Auto) [place] % (Auto) Lymph # [place] # 1.0 H Baso # Seg Neutrophils % 76.2 H Seg Neuts % (Manual) Lymphocytes % (Manual) Monocytes % (Manual) Eosinophils % (Manual) Basophils % (Manual) Nucleated RBC % Seg Neutrophils # 11.9 H Seg Neutrophils # Man Lymphocytes # (Manual) Monocytes # (Manual) Eosinophils # (Manual) Basophils # (Manual) PT INR Fibrinogen dRVVT Confirm Interp Factor V Activity POC ABG pH POC ABG pCO2 POC ABG pO2 ABG pO2 ABG HCO3 ABG Base Excess ABG Hemoglobin Oxyhemoglobin Sodium Potassium Chloride Carbon Dioxide BUN 87 H Creatinine 1.8 H Glucose 119 H POC Glucose 115 H Lactic Acid Calcium Phosphorus Magnesium Direct Bilirubin AST ALT Alkaline Phosphatase Lactate Dehydrogenase Troponin T C-Reactive Protein Total Protein Albumin Prealbumin Triglycerides Cholesterol LDL Cholesterol Direct HDL Cholesterol Urine pH Urine WBC (Auto) Urine Creatinine Urine Total Protein Fluid Total Protein Vancomycin Trough Rheumatoid Factor Complement C4 Miscellaneous Test Crossmatch 12/30/16 12/30/16 12/31/16 17:27 23:21 04:00 WBC RBC Hgb Hct MCV MCH MCHC RDW Plt Count Lymph % (Auto) [place] % (Auto) Lymph # [place] # Baso # Seg Neutrophils % Seg Neuts % (Manual) Lymphocytes % (Manual) Monocytes % (Manual) Eosinophils % (Manual) Basophils % (Manual) Nucleated RBC % Seg Neutrophils # Seg Neutrophils # Man Lymphocytes # (Manual) Monocytes # (Manual) Eosinophils # (Manual) Basophils # (Manual) PT INR Fibrinogen dRVVT Confirm Interp Factor V Activity POC ABG pH POC ABG pCO2 POC ABG pO2 ABG pO2 ABG HCO3 ABG Base Excess ABG Hemoglobin Oxyhemoglobin Sodium Potassium Chloride Carbon Dioxide BUN 59 H Creatinine Glucose 298 H POC Glucose 144 H 125 H Lactic Acid Calcium Phosphorus Magnesium Direct Bilirubin AST ALT Alkaline Phosphatase Lactate Dehydrogenase Troponin T C-Reactive Protein Total Protein Albumin Prealbumin Triglycerides Cholesterol LDL Cholesterol Direct HDL Cholesterol Urine pH Urine WBC (Auto) Urine Creatinine Urine Total Protein Fluid Total Protein Vancomycin Trough Rheumatoid Factor Complement C4 Miscellaneous Test Crossmatch 12/31/16 12/31/16 12/31/16 05:11 12:18 18:17 WBC RBC Hgb Hct MCV MCH MCHC RDW Plt Count Lymph % (Auto) [place] % (Auto) Lymph # [place] # Baso # Seg Neutrophils % Seg Neuts % (Manual) Lymphocytes % (Manual) Monocytes % (Manual) Eosinophils % (Manual) Basophils % (Manual) Nucleated RBC % Seg Neutrophils # Seg Neutrophils # Man Lymphocytes # (Manual) Monocytes # (Manual) Eosinophils # (Manual) Basophils # (Manual) PT INR Fibrinogen dRVVT Confirm Interp Factor V Activity POC ABG pH POC ABG pCO2 POC ABG pO2 ABG pO2 ABG HCO3 ABG Base Excess ABG Hemoglobin Oxyhemoglobin Sodium Potassium Chloride Carbon Dioxide BUN Creatinine Glucose POC Glucose 167 H 125 H 133 H Lactic Acid Calcium Phosphorus Magnesium Direct Bilirubin AST ALT Alkaline Phosphatase Lactate Dehydrogenase Troponin T C-Reactive Protein Total Protein Albumin Prealbumin Triglycerides Cholesterol LDL Cholesterol Direct HDL Cholesterol Urine pH Urine WBC (Auto) Urine Creatinine Urine Total Protein Fluid Total Protein Vancomycin Trough Rheumatoid Factor Complement C4 Miscellaneous Test Crossmatch 12/31/16 01/01/17 01/01/17 23:55 05:00 05:12 WBC RBC Hgb Hct MCV MCH MCHC RDW Plt Count Lymph % (Auto) [place] % (Auto) Lymph # [place] # Baso # Seg Neutrophils % Seg Neuts % (Manual) Lymphocytes % (Manual) Monocytes % (Manual) Eosinophils % (Manual) Basophils % (Manual) Nucleated RBC % Seg Neutrophils # Seg Neutrophils # Man Lymphocytes # (Manual) Monocytes # (Manual) Eosinophils # (Manual) Basophils # (Manual) PT INR Fibrinogen dRVVT Confirm Interp Factor V Activity POC ABG pH POC ABG pCO2 POC ABG pO2 ABG pO2 ABG HCO3 ABG Base Excess ABG Hemoglobin Oxyhemoglobin Sodium Potassium Chloride Carbon Dioxide BUN 76 H Creatinine 1.5 H Glucose 109 H POC Glucose 129 H 129 H Lactic Acid Calcium Phosphorus Magnesium Direct Bilirubin AST ALT Alkaline Phosphatase 536 H Lactate Dehydrogenase Troponin T C-Reactive Protein Total Protein Albumin 1.5 L Prealbumin Triglycerides Cholesterol LDL Cholesterol Direct HDL Cholesterol Urine pH Urine WBC (Auto) Urine Creatinine Urine Total Protein Fluid Total Protein Vancomycin Trough Rheumatoid Factor Complement C4 Miscellaneous Test Crossmatch 01/01/17 01/01/17 01/01/17 12:25 17:01 23:32 WBC RBC Hgb Hct MCV MCH MCHC RDW Plt Count Lymph % (Auto) [place] % (Auto) Lymph # [place] # Baso # Seg Neutrophils % Seg Neuts % (Manual) Lymphocytes % (Manual) Monocytes % (Manual) Eosinophils % (Manual) Basophils % (Manual) Nucleated RBC % Seg Neutrophils # Seg Neutrophils # Man Lymphocytes # (Manual) Monocytes # (Manual) Eosinophils # (Manual) Basophils # (Manual) PT INR Fibrinogen dRVVT Confirm Interp Factor V Activity POC ABG pH POC ABG pCO2 POC ABG pO2 ABG pO2 ABG HCO3 ABG Base Excess ABG Hemoglobin Oxyhemoglobin Sodium Potassium Chloride Carbon Dioxide BUN Creatinine Glucose POC Glucose 140 H 142 H 112 H Lactic Acid Calcium Phosphorus Magnesium Direct Bilirubin AST ALT Alkaline Phosphatase Lactate Dehydrogenase Troponin T C-Reactive Protein Total Protein Albumin Prealbumin Triglycerides Cholesterol LDL Cholesterol Direct HDL Cholesterol Urine pH Urine WBC (Auto) Urine Creatinine Urine Total Protein Fluid Total Protein Vancomycin Trough Rheumatoid Factor Complement C4 Miscellaneous Test Crossmatch 01/02/17 01/02/17 01/02/17 04:56 06:00 11:37 WBC RBC Hgb Hct MCV MCH MCHC RDW Plt Count Lymph % (Auto) [place] % (Auto) Lymph # [place] # Baso # Seg Neutrophils % Seg Neuts % (Manual) Lymphocytes % (Manual) Monocytes % (Manual) Eosinophils % (Manual) Basophils % (Manual) Nucleated RBC % Seg Neutrophils # Seg Neutrophils # Man Lymphocytes # (Manual) Monocytes # (Manual) Eosinophils # (Manual) Basophils # (Manual) PT INR Fibrinogen dRVVT Confirm Interp Factor V Activity POC ABG pH POC ABG pCO2 POC ABG pO2 ABG pO2 ABG HCO3 ABG Base Excess ABG Hemoglobin Oxyhemoglobin Sodium Potassium Chloride Carbon Dioxide BUN 88 H Creatinine 1.7 H Glucose 113 H POC Glucose 136 H 200 H Lactic Acid Calcium Phosphorus Magnesium Direct Bilirubin AST ALT Alkaline Phosphatase Lactate Dehydrogenase Troponin T C-Reactive Protein Total Protein Albumin Prealbumin Triglycerides Cholesterol LDL Cholesterol Direct HDL Cholesterol Urine pH Urine WBC (Auto) Urine Creatinine Urine Total Protein Fluid Total Protein Vancomycin Trough Rheumatoid Factor Complement C4 Miscellaneous Test Crossmatch 01/02/17 01/02/17 01/03/17 17:42 22:52 04:54 WBC RBC Hgb Hct MCV MCH MCHC RDW Plt Count Lymph % (Auto) [place] % (Auto) Lymph # [place] # Baso # Seg Neutrophils % Seg Neuts % (Manual) Lymphocytes % (Manual) Monocytes % (Manual) Eosinophils % (Manual) Basophils % (Manual) Nucleated RBC % Seg Neutrophils # Seg Neutrophils # Man Lymphocytes # (Manual) Monocytes # (Manual) Eosinophils # (Manual) Basophils # (Manual) PT INR Fibrinogen dRVVT Confirm Interp Factor V Activity POC ABG pH POC ABG pCO2 POC ABG pO2 ABG pO2 ABG HCO3 ABG Base Excess ABG Hemoglobin Oxyhemoglobin Sodium Potassium Chloride Carbon Dioxide BUN Creatinine Glucose POC Glucose 112 H 133 H 111 H Lactic Acid Calcium Phosphorus Magnesium Direct Bilirubin AST ALT Alkaline Phosphatase Lactate Dehydrogenase Troponin T C-Reactive Protein Total Protein Albumin Prealbumin Triglycerides Cholesterol LDL Cholesterol Direct HDL Cholesterol Urine pH Urine WBC (Auto) Urine Creatinine Urine Total Protein Fluid Total Protein Vancomycin Trough Rheumatoid Factor Complement C4 Miscellaneous Test Crossmatch 01/03/17 01/03/17 01/03/17 05:00 05:00 14:02 WBC 11.2 H RBC 2.56 L Hgb 7.2 L Hct 22.3 L MCV MCH MCHC RDW 17.3 H Plt Count Lymph % (Auto) [place] % (Auto) 10.0 H Lymph # [place] # 1.1 H Baso # Seg Neutrophils % 70.5 H Seg Neuts % (Manual) Lymphocytes % (Manual) Monocytes % (Manual) Eosinophils % (Manual) Basophils % (Manual) Nucleated RBC % Seg Neutrophils # 7.9 H Seg Neutrophils # Man Lymphocytes # (Manual) Monocytes # (Manual) Eosinophils # (Manual) Basophils # (Manual) PT INR Fibrinogen dRVVT Confirm Interp Factor V Activity POC ABG pH POC ABG pCO2 POC ABG pO2 ABG pO2 ABG HCO3 ABG Base Excess ABG Hemoglobin Oxyhemoglobin Sodium Potassium Chloride Carbon Dioxide BUN 60 H Creatinine 1.3 H Glucose 110 H POC Glucose 119 H Lactic Acid Calcium Phosphorus Magnesium Direct Bilirubin AST ALT Alkaline Phosphatase Lactate Dehydrogenase Troponin T C-Reactive Protein Total Protein Albumin Prealbumin Triglycerides Cholesterol LDL Cholesterol Direct HDL Cholesterol Urine pH Urine WBC (Auto) Urine Creatinine Urine Total Protein Fluid Total Protein Vancomycin Trough Rheumatoid Factor Complement C4 Miscellaneous Test Crossmatch 01/03/17 01/03/17 01/04/17 18:13 23:40 05:57 WBC RBC Hgb Hct MCV MCH MCHC RDW Plt Count Lymph % (Auto) [place] % (Auto) Lymph # [place] # Baso # Seg Neutrophils % Seg Neuts % (Manual) Lymphocytes % (Manual) Monocytes % (Manual) Eosinophils % (Manual) Basophils % (Manual) Nucleated RBC % Seg Neutrophils # Seg Neutrophils # Man Lymphocytes # (Manual) Monocytes # (Manual) Eosinophils # (Manual) Basophils # (Manual) PT INR Fibrinogen dRVVT Confirm Interp Factor V Activity POC ABG pH POC ABG pCO2 POC ABG pO2 ABG pO2 ABG HCO3 ABG Base Excess ABG Hemoglobin Oxyhemoglobin Sodium Potassium Chloride Carbon Dioxide BUN Creatinine Glucose POC Glucose 107 H 129 H 111 H Lactic Acid Calcium Phosphorus Magnesium Direct Bilirubin AST ALT Alkaline Phosphatase Lactate Dehydrogenase Troponin T C-Reactive Protein Total Protein Albumin Prealbumin Triglycerides Cholesterol LDL Cholesterol Direct HDL Cholesterol Urine pH Urine WBC (Auto) Urine Creatinine Urine Total Protein Fluid Total Protein Vancomycin Trough Rheumatoid Factor Complement C4 Miscellaneous Test Crossmatch 01/04/17 01/04/17 01/04/17 12:46 15:27 17:11 WBC RBC Hgb Hct MCV MCH MCHC RDW Plt Count Lymph % (Auto) [place] % (Auto) Lymph # [place] # Baso # Seg Neutrophils % Seg Neuts % (Manual) Lymphocytes % (Manual) Monocytes % (Manual) Eosinophils % (Manual) Basophils % (Manual) Nucleated RBC % Seg Neutrophils # Seg Neutrophils # Man Lymphocytes # (Manual) Monocytes # (Manual) Eosinophils # (Manual) Basophils # (Manual) PT INR Fibrinogen dRVVT Confirm Interp Factor V Activity POC ABG pH POC ABG pCO2 POC ABG pO2 ABG pO2 ABG HCO3 ABG Base Excess ABG Hemoglobin Oxyhemoglobin Sodium Potassium Chloride Carbon Dioxide BUN 43 H Creatinine Glucose 124 H POC Glucose 159 H 125 H Lactic Acid Calcium 8.0 L Phosphorus 2.10 L Magnesium Direct Bilirubin AST ALT Alkaline Phosphatase Lactate Dehydrogenase Troponin T C-Reactive Protein Total Protein Albumin Prealbumin Triglycerides Cholesterol LDL Cholesterol Direct HDL Cholesterol Urine pH Urine WBC (Auto) Urine Creatinine Urine Total Protein Fluid Total Protein Vancomycin Trough Rheumatoid Factor Complement C4 Miscellaneous Test Crossmatch 01/04/17 01/05/17 01/05/17 23:31 04:00 05:46 WBC RBC Hgb Hct MCV MCH MCHC RDW Plt Count Lymph % (Auto) [place] % (Auto) Lymph # [place] # Baso # Seg Neutrophils % Seg Neuts % (Manual) Lymphocytes % (Manual) Monocytes % (Manual) Eosinophils % (Manual) Basophils % (Manual) Nucleated RBC % Seg Neutrophils # Seg Neutrophils # Man Lymphocytes # (Manual) Monocytes # (Manual) Eosinophils # (Manual) Basophils # (Manual) PT INR Fibrinogen dRVVT Confirm Interp Factor V Activity POC ABG pH POC ABG pCO2 POC ABG pO2 ABG pO2 ABG HCO3 ABG Base Excess ABG Hemoglobin Oxyhemoglobin Sodium Potassium Chloride Carbon Dioxide BUN 52 H Creatinine 1.3 H Glucose 113 H POC Glucose 123 H 118 H Lactic Acid Calcium Phosphorus 2.40 L Magnesium Direct Bilirubin AST ALT Alkaline Phosphatase Lactate Dehydrogenase Troponin T C-Reactive Protein Total Protein Albumin Prealbumin Triglycerides Cholesterol LDL Cholesterol Direct HDL Cholesterol Urine pH Urine WBC (Auto) Urine Creatinine Urine Total Protein Fluid Total Protein Vancomycin Trough Rheumatoid Factor Complement C4 Miscellaneous Test Crossmatch 01/05/17 01/05/17 01/05/17 11:41 17:48 23:27 WBC RBC Hgb Hct MCV MCH MCHC RDW Plt Count Lymph % (Auto) [place] % (Auto) Lymph # [place] # Baso # Seg Neutrophils % Seg Neuts % (Manual) Lymphocytes % (Manual) Monocytes % (Manual) Eosinophils % (Manual) Basophils % (Manual) Nucleated RBC % Seg Neutrophils # Seg Neutrophils # Man Lymphocytes # (Manual) Monocytes # (Manual) Eosinophils # (Manual) Basophils # (Manual) PT INR Fibrinogen dRVVT Confirm Interp Factor V Activity POC ABG pH POC ABG pCO2 POC ABG pO2 ABG pO2 ABG HCO3 ABG Base Excess ABG Hemoglobin Oxyhemoglobin Sodium Potassium Chloride Carbon Dioxide BUN Creatinine Glucose POC Glucose 163 H 142 H 155 H Lactic Acid Calcium Phosphorus Magnesium Direct Bilirubin AST ALT Alkaline Phosphatase Lactate Dehydrogenase Troponin T C-Reactive Protein Total Protein Albumin Prealbumin Triglycerides Cholesterol LDL Cholesterol Direct HDL Cholesterol Urine pH Urine WBC (Auto) Urine Creatinine Urine Total Protein Fluid Total Protein Vancomycin Trough Rheumatoid Factor Complement C4 Miscellaneous Test Crossmatch 01/06/17 01/06/17 01/06/17 05:20 07:35 11:18 WBC RBC Hgb Hct MCV MCH MCHC RDW Plt Count Lymph % (Auto) [place] % (Auto) Lymph # [place] # Baso # Seg Neutrophils % Seg Neuts % (Manual) Lymphocytes % (Manual) Monocytes % (Manual) Eosinophils % (Manual) Basophils % (Manual) Nucleated RBC % Seg Neutrophils # Seg Neutrophils # Man Lymphocytes # (Manual) Monocytes # (Manual) Eosinophils # (Manual) Basophils # (Manual) PT INR Fibrinogen dRVVT Confirm Interp Factor V Activity POC ABG pH POC ABG pCO2 POC ABG pO2 ABG pO2 ABG HCO3 ABG Base Excess ABG Hemoglobin Oxyhemoglobin Sodium Potassium Chloride Carbon Dioxide BUN 74 H Creatinine 1.6 H Glucose 135 H POC Glucose 108 H 149 H Lactic Acid Calcium Phosphorus Magnesium Direct Bilirubin AST ALT Alkaline Phosphatase Lactate Dehydrogenase Troponin T C-Reactive Protein Total Protein Albumin Prealbumin Triglycerides Cholesterol LDL Cholesterol Direct HDL Cholesterol Urine pH Urine WBC (Auto) Urine Creatinine Urine Total Protein Fluid Total Protein Vancomycin Trough Rheumatoid Factor Complement C4 Miscellaneous Test Crossmatch 01/06/17 01/07/17 01/07/17 17:17 00:23 05:31 WBC RBC Hgb Hct MCV MCH MCHC RDW Plt Count Lymph % (Auto) [place] % (Auto) Lymph # [place] # Baso # Seg Neutrophils % Seg Neuts % (Manual) Lymphocytes % (Manual) Monocytes % (Manual) Eosinophils % (Manual) Basophils % (Manual) Nucleated RBC % Seg Neutrophils # Seg Neutrophils # Man Lymphocytes # (Manual) Monocytes # (Manual) Eosinophils # (Manual) Basophils # (Manual) PT INR Fibrinogen dRVVT Confirm Interp Factor V Activity POC ABG pH POC ABG pCO2 POC ABG pO2 ABG pO2 ABG HCO3 ABG Base Excess ABG Hemoglobin Oxyhemoglobin Sodium Potassium Chloride Carbon Dioxide BUN Creatinine Glucose POC Glucose 146 H 165 H 153 H Lactic Acid Calcium Phosphorus Magnesium Direct Bilirubin AST ALT Alkaline Phosphatase Lactate Dehydrogenase Troponin T C-Reactive Protein Total Protein Albumin Prealbumin Triglycerides Cholesterol LDL Cholesterol Direct HDL Cholesterol Urine pH Urine WBC (Auto) Urine Creatinine Urine Total Protein Fluid Total Protein Vancomycin Trough Rheumatoid Factor Complement C4 Miscellaneous Test Crossmatch 01/07/17 01/07/17 01/07/17 06:00 11:39 17:11 WBC RBC Hgb Hct MCV MCH MCHC RDW Plt Count Lymph % (Auto) [place] % (Auto) Lymph # [place] # Baso # Seg Neutrophils % Seg Neuts % (Manual) Lymphocytes % (Manual) Monocytes % (Manual) Eosinophils % (Manual) Basophils % (Manual) Nucleated RBC % Seg Neutrophils # Seg Neutrophils # Man Lymphocytes # (Manual) Monocytes # (Manual) Eosinophils # (Manual) Basophils # (Manual) PT INR Fibrinogen dRVVT Confirm Interp Factor V Activity POC ABG pH POC ABG pCO2 POC ABG pO2 ABG pO2 ABG HCO3 ABG Base Excess ABG Hemoglobin Oxyhemoglobin Sodium Potassium Chloride Carbon Dioxide BUN 42 H Creatinine Glucose 175 H POC Glucose 163 H 163 H Lactic Acid Calcium Phosphorus 2.40 L D Magnesium Direct Bilirubin AST ALT Alkaline Phosphatase Lactate Dehydrogenase Troponin T C-Reactive Protein Total Protein Albumin Prealbumin Triglycerides Cholesterol LDL Cholesterol Direct HDL Cholesterol Urine pH Urine WBC (Auto) Urine Creatinine Urine Total Protein Fluid Total Protein Vancomycin Trough Rheumatoid Factor Complement C4 Miscellaneous Test Crossmatch 01/07/17 01/08/17 01/08/17 23:40 05:00 05:00 WBC 27.4 H RBC 2.27 L Hgb 6.1 L Hct 20.4 L MCV MCH 27 L MCHC RDW 17.8 H Plt Count Lymph % (Auto) [place] % (Auto) Lymph # [place] # Baso # Seg Neutrophils % Seg Neuts % (Manual) Lymphocytes % (Manual) Monocytes % (Manual) Eosinophils % (Manual) Basophils % (Manual) Nucleated RBC % Seg Neutrophils # Seg Neutrophils # Man Lymphocytes # (Manual) Monocytes # (Manual) Eosinophils # (Manual) Basophils # (Manual) PT INR Fibrinogen dRVVT Confirm Interp Factor V Activity POC ABG pH POC ABG pCO2 POC ABG pO2 ABG pO2 ABG HCO3 ABG Base Excess ABG Hemoglobin Oxyhemoglobin Sodium Potassium Chloride Carbon Dioxide 16 L D BUN 62 H Creatinine 1.6 H D Glucose 103 H POC Glucose 135 H Lactic Acid Calcium Phosphorus Magnesium Direct Bilirubin AST ALT Alkaline Phosphatase Lactate Dehydrogenase Troponin T C-Reactive Protein Total Protein Albumin Prealbumin Triglycerides Cholesterol LDL Cholesterol Direct HDL Cholesterol Urine pH Urine WBC (Auto) Urine Creatinine Urine Total Protein Fluid Total Protein Vancomycin Trough Rheumatoid Factor Complement C4 Miscellaneous Test Crossmatch 01/08/17 01/08/17 01/08/17 05:25 10:37 10:37 WBC RBC Hgb Hct MCV MCH MCHC RDW Plt Count Lymph % (Auto) [place] % (Auto) Lymph # [place] # Baso # Seg Neutrophils % Seg Neuts % (Manual) Lymphocytes % (Manual) Monocytes % (Manual) Eosinophils % (Manual) Basophils % (Manual) Nucleated RBC % Seg Neutrophils # Seg Neutrophils # Man Lymphocytes # (Manual) Monocytes # (Manual) Eosinophils # (Manual) Basophils # (Manual) PT INR Fibrinogen dRVVT Confirm Interp Factor V Activity POC ABG pH POC ABG pCO2 POC ABG pO2 ABG pO2 ABG HCO3 ABG Base Excess ABG Hemoglobin Oxyhemoglobin Sodium Potassium Chloride Carbon Dioxide BUN Creatinine Glucose POC Glucose 106 H Lactic Acid Calcium Phosphorus Magnesium Direct Bilirubin AST ALT Alkaline Phosphatase Lactate Dehydrogenase Troponin T C-Reactive Protein 24.40 H Total Protein Albumin Prealbumin Triglycerides Cholesterol LDL Cholesterol Direct HDL Cholesterol Urine pH Urine WBC (Auto) Urine Creatinine Urine Total Protein Fluid Total Protein Vancomycin Trough Rheumatoid Factor Complement C4 Miscellaneous Test Crossmatch See Detail 01/08/17 01/08/17 01/08/17 10:37 11:33 15:15 WBC RBC Hgb Hct MCV MCH MCHC RDW Plt Count Lymph % (Auto) [place] % (Auto) Lymph # [place] # Baso # Seg Neutrophils % Seg Neuts % (Manual) Lymphocytes % (Manual) Monocytes % (Manual) Eosinophils % (Manual) Basophils % (Manual) Nucleated RBC % Seg Neutrophils # Seg Neutrophils # Man Lymphocytes # (Manual) Monocytes # (Manual) Eosinophils # (Manual) Basophils # (Manual) PT INR Fibrinogen dRVVT Confirm Interp Factor V Activity POC ABG pH POC ABG pCO2 POC ABG pO2 ABG pO2 ABG HCO3 ABG Base Excess ABG Hemoglobin Oxyhemoglobin Sodium Potassium Chloride Carbon Dioxide BUN Creatinine Glucose POC Glucose 157 H Lactic Acid 9.70 H* 9.10 H* Calcium Phosphorus Magnesium Direct Bilirubin AST ALT Alkaline Phosphatase Lactate Dehydrogenase Troponin T C-Reactive Protein Total Protein Albumin Prealbumin Triglycerides Cholesterol LDL Cholesterol Direct HDL Cholesterol Urine pH Urine WBC (Auto) Urine Creatinine Urine Total Protein Fluid Total Protein Vancomycin Trough Rheumatoid Factor Complement C4 Miscellaneous Test Crossmatch 01/08/17 01/08/17 01/09/17 17:19 23:12 04:40 WBC RBC Hgb Hct MCV MCH MCHC RDW Plt Count Lymph % (Auto) [place] % (Auto) Lymph # [place] # Baso # Seg Neutrophils % Seg Neuts % (Manual) Lymphocytes % (Manual) Monocytes % (Manual) Eosinophils % (Manual) Basophils % (Manual) Nucleated RBC % Seg Neutrophils # Seg Neutrophils # Man Lymphocytes # (Manual) Monocytes # (Manual) Eosinophils # (Manual) Basophils # (Manual) PT INR Fibrinogen dRVVT Confirm Interp Factor V Activity POC ABG pH POC ABG pCO2 POC ABG pO2 ABG pO2 ABG HCO3 ABG Base Excess ABG Hemoglobin Oxyhemoglobin Sodium 147 H Potassium Chloride Carbon Dioxide BUN 82 H Creatinine 1.8 H Glucose 137 H POC Glucose 164 H 157 H Lactic Acid Calcium Phosphorus Magnesium Direct Bilirubin AST ALT Alkaline Phosphatase Lactate Dehydrogenase Troponin T C-Reactive Protein Total Protein Albumin Prealbumin Triglycerides Cholesterol LDL Cholesterol Direct HDL Cholesterol Urine pH Urine WBC (Auto) Urine Creatinine Urine Total Protein Fluid Total Protein Vancomycin Trough Rheumatoid Factor Complement C4 Miscellaneous Test Crossmatch 01/09/17 01/09/17 01/09/17 05:42 08:22 10:57 WBC RBC Hgb Hct MCV MCH MCHC RDW Plt Count Lymph % (Auto) [place] % (Auto) Lymph # [place] # Baso # Seg Neutrophils % Seg Neuts % (Manual) Lymphocytes % (Manual) Monocytes % (Manual) Eosinophils % (Manual) Basophils % (Manual) Nucleated RBC % Seg Neutrophils # Seg Neutrophils # Man Lymphocytes # (Manual) Monocytes # (Manual) Eosinophils # (Manual) Basophils # (Manual) PT INR Fibrinogen dRVVT Confirm Interp Factor V Activity POC ABG pH POC ABG pCO2 POC ABG pO2 ABG pO2 ABG HCO3 ABG Base Excess ABG Hemoglobin Oxyhemoglobin Sodium Potassium Chloride Carbon Dioxide BUN Creatinine Glucose POC Glucose 156 H 122 H Lactic Acid 2.30 H* Calcium Phosphorus Magnesium Direct Bilirubin AST ALT Alkaline Phosphatase Lactate Dehydrogenase Troponin T C-Reactive Protein Total Protein Albumin Prealbumin Triglycerides Cholesterol LDL Cholesterol Direct HDL Cholesterol Urine pH Urine WBC (Auto) Urine Creatinine Urine Total Protein Fluid Total Protein Vancomycin Trough Rheumatoid Factor Complement C4 Miscellaneous Test Crossmatch 01/09/17 01/09/17 01/09/17 13:30 17:14 18:45 WBC RBC Hgb Hct MCV MCH MCHC RDW Plt Count Lymph % (Auto) [place] % (Auto) Lymph # [place] # Baso # Seg Neutrophils % Seg Neuts % (Manual) Lymphocytes % (Manual) Monocytes % (Manual) Eosinophils % (Manual) Basophils % (Manual) Nucleated RBC % Seg Neutrophils # Seg Neutrophils # Man Lymphocytes # (Manual) Monocytes # (Manual) Eosinophils # (Manual) Basophils # (Manual) PT INR Fibrinogen dRVVT Confirm Interp Factor V Activity POC ABG pH POC ABG pCO2 POC ABG pO2 ABG pO2 ABG HCO3 ABG Base Excess ABG Hemoglobin Oxyhemoglobin Sodium Potassium Chloride Carbon Dioxide BUN Creatinine Glucose POC Glucose 127 H Lactic Acid Calcium Phosphorus Magnesium Direct Bilirubin AST ALT Alkaline Phosphatase Lactate Dehydrogenase Troponin T C-Reactive Protein 24.70 H Total Protein Albumin Prealbumin Triglycerides Cholesterol LDL Cholesterol Direct HDL Cholesterol Urine pH Urine WBC (Auto) Urine Creatinine Urine Total Protein Fluid Total Protein Vancomycin Trough Rheumatoid Factor Complement C4 Miscellaneous Test Flexitest 1 H Crossmatch 01/10/17 01/10/17 01/10/17 01:21 04:00 04:00 WBC 18.1 H RBC 3.22 L Hgb 8.8 L Hct 27.0 L D MCV MCH 27 L MCHC RDW 17.0 H Plt Count Lymph % (Auto) [place] % (Auto) Lymph # [place] # Baso # Seg Neutrophils % Seg Neuts % (Manual) Lymphocytes % (Manual) Monocytes % (Manual) Eosinophils % (Manual) Basophils % (Manual) Nucleated RBC % Seg Neutrophils # Seg Neutrophils # Man Lymphocytes # (Manual) Monocytes # (Manual) Eosinophils # (Manual) Basophils # (Manual) PT INR Fibrinogen dRVVT Confirm Interp Factor V Activity POC ABG pH POC ABG pCO2 POC ABG pO2 ABG pO2 ABG HCO3 ABG Base Excess ABG Hemoglobin Oxyhemoglobin Sodium Potassium Chloride Carbon Dioxide BUN 59 H Creatinine 1.3 H Glucose 122 H POC Glucose 160 H Lactic Acid Calcium Phosphorus Magnesium Direct Bilirubin AST ALT Alkaline Phosphatase Lactate Dehydrogenase Troponin T C-Reactive Protein Total Protein Albumin Prealbumin Triglycerides Cholesterol LDL Cholesterol Direct HDL Cholesterol Urine pH Urine WBC (Auto) Urine Creatinine Urine Total Protein Fluid Total Protein Vancomycin Trough Rheumatoid Factor Complement C4 Miscellaneous Test Crossmatch 01/10/17 01/10/17 01/10/17 05:36 12:14 17:55 WBC RBC Hgb Hct MCV MCH MCHC RDW Plt Count Lymph % (Auto) [place] % (Auto) Lymph # [place] # Baso # Seg Neutrophils % Seg Neuts % (Manual) Lymphocytes % (Manual) Monocytes % (Manual) Eosinophils % (Manual) Basophils % (Manual) Nucleated RBC % Seg Neutrophils # Seg Neutrophils # Man Lymphocytes # (Manual) Monocytes # (Manual) Eosinophils # (Manual) Basophils # (Manual) PT INR Fibrinogen dRVVT Confirm Interp Factor V Activity POC ABG pH POC ABG pCO2 POC ABG pO2 ABG pO2 ABG HCO3 ABG Base Excess ABG Hemoglobin Oxyhemoglobin Sodium Potassium Chloride Carbon Dioxide BUN Creatinine Glucose POC Glucose 163 H 120 H 144 H Lactic Acid Calcium Phosphorus Magnesium Direct Bilirubin AST ALT Alkaline Phosphatase Lactate Dehydrogenase Troponin T C-Reactive Protein Total Protein Albumin Prealbumin Triglycerides Cholesterol LDL Cholesterol Direct HDL Cholesterol Urine pH Urine WBC (Auto) Urine Creatinine Urine Total Protein Fluid Total Protein Vancomycin Trough Rheumatoid Factor Complement C4 Miscellaneous Test Crossmatch 01/11/17 01/11/17 01/11/17 00:09 04:00 04:00 WBC 15.8 H RBC 3.04 L Hgb 8.2 L Hct 25.5 L MCV MCH 27 L MCHC RDW 17.3 H Plt Count Lymph % (Auto) [place] % (Auto) Lymph # [place] # Baso # Seg Neutrophils % Seg Neuts % (Manual) Lymphocytes % (Manual) Monocytes % (Manual) Eosinophils % (Manual) Basophils % (Manual) Nucleated RBC % Seg Neutrophils # Seg Neutrophils # Man Lymphocytes # (Manual) Monocytes # (Manual) Eosinophils # (Manual) Basophils # (Manual) PT INR Fibrinogen dRVVT Confirm Interp Factor V Activity POC ABG pH POC ABG pCO2 POC ABG pO2 ABG pO2 ABG HCO3 ABG Base Excess ABG Hemoglobin Oxyhemoglobin Sodium Potassium Chloride Carbon Dioxide BUN 78 H Creatinine 1.6 H Glucose 109 H POC Glucose 122 H Lactic Acid Calcium Phosphorus Magnesium Direct Bilirubin AST ALT Alkaline Phosphatase Lactate Dehydrogenase Troponin T C-Reactive Protein Total Protein Albumin Prealbumin Triglycerides Cholesterol LDL Cholesterol Direct HDL Cholesterol Urine pH Urine WBC (Auto) Urine Creatinine Urine Total Protein Fluid Total Protein Vancomycin Trough Rheumatoid Factor Complement C4 Miscellaneous Test Crossmatch 01/11/17 01/11/17 01/11/17 12:46 18:23 23:42 WBC RBC Hgb Hct MCV MCH MCHC RDW Plt Count Lymph % (Auto) [place] % (Auto) Lymph # [place] # Baso # Seg Neutrophils % Seg Neuts % (Manual) Lymphocytes % (Manual) Monocytes % (Manual) Eosinophils % (Manual) Basophils % (Manual) Nucleated RBC % Seg Neutrophils # Seg Neutrophils # Man Lymphocytes # (Manual) Monocytes # (Manual) Eosinophils # (Manual) Basophils # (Manual) PT INR Fibrinogen dRVVT Confirm Interp Factor V Activity POC ABG pH POC ABG pCO2 POC ABG pO2 ABG pO2 ABG HCO3 ABG Base Excess ABG Hemoglobin Oxyhemoglobin Sodium Potassium Chloride Carbon Dioxide BUN Creatinine Glucose POC Glucose 148 H 125 H 124 H Lactic Acid Calcium Phosphorus Magnesium Direct Bilirubin AST ALT Alkaline Phosphatase Lactate Dehydrogenase Troponin T C-Reactive Protein Total Protein Albumin Prealbumin Triglycerides Cholesterol LDL Cholesterol Direct HDL Cholesterol Urine pH Urine WBC (Auto) Urine Creatinine Urine Total Protein Fluid Total Protein Vancomycin Trough Rheumatoid Factor Complement C4 Miscellaneous Test Crossmatch 01/12/17 01/12/17 01/12/17 04:30 04:30 05:47 WBC 15.8 H RBC 3.31 L Hgb 8.9 L Hct 27.9 L MCV MCH 27 L MCHC RDW 17.4 H Plt Count Lymph % (Auto) [place] % (Auto) Lymph # [place] # Baso # Seg Neutrophils % Seg Neuts % (Manual) Lymphocytes % (Manual) Monocytes % (Manual) Eosinophils % (Manual) Basophils % (Manual) Nucleated RBC % Seg Neutrophils # Seg Neutrophils # Man Lymphocytes # (Manual) Monocytes # (Manual) Eosinophils # (Manual) Basophils # (Manual) PT INR Fibrinogen dRVVT Confirm Interp Factor V Activity POC ABG pH POC ABG pCO2 POC ABG pO2 ABG pO2 ABG HCO3 ABG Base Excess ABG Hemoglobin Oxyhemoglobin Sodium Potassium Chloride Carbon Dioxide BUN 57 H Creatinine Glucose 121 H POC Glucose 110 H Lactic Acid Calcium Phosphorus 2.10 L Magnesium Direct Bilirubin AST ALT Alkaline Phosphatase Lactate Dehydrogenase Troponin T C-Reactive Protein Total Protein Albumin Prealbumin Triglycerides Cholesterol LDL Cholesterol Direct HDL Cholesterol Urine pH Urine WBC (Auto) Urine Creatinine Urine Total Protein Fluid Total Protein Vancomycin Trough Rheumatoid Factor Complement C4 Miscellaneous Test Crossmatch 01/12/17 01/12/17 01/12/17 11:35 17:45 23:14 WBC RBC Hgb Hct MCV MCH MCHC RDW Plt Count Lymph % (Auto) [place] % (Auto) Lymph # [place] # Baso # Seg Neutrophils % Seg Neuts % (Manual) Lymphocytes % (Manual) Monocytes % (Manual) Eosinophils % (Manual) Basophils % (Manual) Nucleated RBC % Seg Neutrophils # Seg Neutrophils # Man Lymphocytes # (Manual) Monocytes # (Manual) Eosinophils # (Manual) Basophils # (Manual) PT INR Fibrinogen dRVVT Confirm Interp Factor V Activity POC ABG pH POC ABG pCO2 POC ABG pO2 ABG pO2 ABG HCO3 ABG Base Excess ABG Hemoglobin Oxyhemoglobin Sodium Potassium Chloride Carbon Dioxide BUN Creatinine Glucose POC Glucose 146 H 117 H 123 H Lactic Acid Calcium Phosphorus Magnesium Direct Bilirubin AST ALT Alkaline Phosphatase Lactate Dehydrogenase Troponin T C-Reactive Protein Total Protein Albumin Prealbumin Triglycerides Cholesterol LDL Cholesterol Direct HDL Cholesterol Urine pH Urine WBC (Auto) Urine Creatinine Urine Total Protein Fluid Total Protein Vancomycin Trough Rheumatoid Factor Complement C4 Miscellaneous Test Crossmatch 01/13/17 01/13/17 01/13/17 05:32 06:00 12:10 WBC RBC Hgb Hct MCV MCH MCHC RDW Plt Count Lymph % (Auto) [place] % (Auto) Lymph # [place] # Baso # Seg Neutrophils % Seg Neuts % (Manual) Lymphocytes % (Manual) Monocytes % (Manual) Eosinophils % (Manual) Basophils % (Manual) Nucleated RBC % Seg Neutrophils # Seg Neutrophils # Man Lymphocytes # (Manual) Monocytes # (Manual) Eosinophils # (Manual) Basophils # (Manual) PT INR Fibrinogen dRVVT Confirm Interp Factor V Activity POC ABG pH POC ABG pCO2 POC ABG pO2 ABG pO2 ABG HCO3 ABG Base Excess ABG Hemoglobin Oxyhemoglobin Sodium Potassium Chloride Carbon Dioxide BUN 80 H Creatinine 1.4 H Glucose 106 H POC Glucose 106 H Lactic Acid Calcium Phosphorus Magnesium Direct Bilirubin AST ALT Alkaline Phosphatase Lactate Dehydrogenase Troponin T C-Reactive Protein Total Protein Albumin Prealbumin Triglycerides Cholesterol LDL Cholesterol Direct HDL Cholesterol Urine pH Urine WBC (Auto) Urine Creatinine Urine Total Protein Fluid Total Protein 3.0 L Vancomycin Trough Rheumatoid Factor Complement C4 Miscellaneous Test Crossmatch 01/13/17 01/13/17 01/13/17 12:17 15:50 17:30 WBC RBC Hgb Hct MCV MCH MCHC RDW Plt Count Lymph % (Auto) [place] % (Auto) Lymph # [place] # Baso # Seg Neutrophils % Seg Neuts % (Manual) Lymphocytes % (Manual) Monocytes % (Manual) Eosinophils % (Manual) Basophils % (Manual) Nucleated RBC % Seg Neutrophils # Seg Neutrophils # Man Lymphocytes # (Manual) Monocytes # (Manual) Eosinophils # (Manual) Basophils # (Manual) PT 15.4 H INR 1.16 H Fibrinogen dRVVT Confirm Interp Factor V Activity POC ABG pH POC ABG pCO2 POC ABG pO2 ABG pO2 ABG HCO3 ABG Base Excess ABG Hemoglobin Oxyhemoglobin Sodium Potassium Chloride Carbon Dioxide BUN Creatinine Glucose POC Glucose 168 H 110 H Lactic Acid Calcium Phosphorus Magnesium Direct Bilirubin AST ALT Alkaline Phosphatase Lactate Dehydrogenase Troponin T C-Reactive Protein Total Protein Albumin Prealbumin Triglycerides Cholesterol LDL Cholesterol Direct HDL Cholesterol Urine pH Urine WBC (Auto) Urine Creatinine Urine Total Protein Fluid Total Protein Vancomycin Trough Rheumatoid Factor Complement C4 Miscellaneous Test Crossmatch 01/13/17 01/14/17 01/14/17 23:42 05:24 05:30 WBC RBC Hgb Hct MCV MCH MCHC RDW Plt Count Lymph % (Auto) [place] % (Auto) Lymph # [place] # Baso # Seg Neutrophils % Seg Neuts % (Manual) Lymphocytes % (Manual) Monocytes % (Manual) Eosinophils % (Manual) Basophils % (Manual) Nucleated RBC % Seg Neutrophils # Seg Neutrophils # Man Lymphocytes # (Manual) Monocytes # (Manual) Eosinophils # (Manual) Basophils # (Manual) PT INR Fibrinogen dRVVT Confirm Interp Factor V Activity POC ABG pH POC ABG pCO2 POC ABG pO2 ABG pO2 ABG HCO3 ABG Base Excess ABG Hemoglobin Oxyhemoglobin Sodium Potassium Chloride Carbon Dioxide BUN 58 H Creatinine Glucose 114 H POC Glucose 155 H 121 H Lactic Acid Calcium Phosphorus Magnesium Direct Bilirubin AST ALT Alkaline Phosphatase Lactate Dehydrogenase Troponin T C-Reactive Protein Total Protein Albumin Prealbumin Triglycerides Cholesterol LDL Cholesterol Direct HDL Cholesterol Urine pH Urine WBC (Auto) Urine Creatinine Urine Total Protein Fluid Total Protein Vancomycin Trough Rheumatoid Factor Complement C4 Miscellaneous Test Crossmatch 01/14/17 01/14/17 01/15/17 12:48 17:36 00:15 WBC RBC Hgb Hct MCV MCH MCHC RDW Plt Count Lymph % (Auto) [place] % (Auto) Lymph # [place] # Baso # Seg Neutrophils % Seg Neuts % (Manual) Lymphocytes % (Manual) Monocytes % (Manual) Eosinophils % (Manual) Basophils % (Manual) Nucleated RBC % Seg Neutrophils # Seg Neutrophils # Man Lymphocytes # (Manual) Monocytes # (Manual) Eosinophils # (Manual) Basophils # (Manual) PT INR Fibrinogen dRVVT Confirm Interp Factor V Activity POC ABG pH POC ABG pCO2 POC ABG pO2 ABG pO2 ABG HCO3 ABG Base Excess ABG Hemoglobin Oxyhemoglobin Sodium Potassium Chloride Carbon Dioxide BUN Creatinine Glucose POC Glucose 130 H 135 H 132 H Lactic Acid Calcium Phosphorus Magnesium Direct Bilirubin AST ALT Alkaline Phosphatase Lactate Dehydrogenase Troponin T C-Reactive Protein Total Protein Albumin Prealbumin Triglycerides Cholesterol LDL Cholesterol Direct HDL Cholesterol Urine pH Urine WBC (Auto) Urine Creatinine Urine Total Protein Fluid Total Protein Vancomycin Trough Rheumatoid Factor Complement C4 Miscellaneous Test Crossmatch 01/15/17 01/15/17 01/15/17 05:01 11:55 12:45 WBC 16.2 H RBC 3.00 L Hgb 8.1 L Hct 25.4 L MCV MCH 27 L MCHC RDW 17.6 H Plt Count Lymph % (Auto) 11.7 L [place] % (Auto) 7.8 H Lymph # [place] # 1.3 H Baso # Seg Neutrophils % 80.1 H Seg Neuts % (Manual) Lymphocytes % (Manual) Monocytes % (Manual) Eosinophils % (Manual) Basophils % (Manual) Nucleated RBC % Seg Neutrophils # 13.0 H Seg Neutrophils # Man Lymphocytes # (Manual) Monocytes # (Manual) Eosinophils # (Manual) Basophils # (Manual) PT INR Fibrinogen dRVVT Confirm Interp Factor V Activity POC ABG pH POC ABG pCO2 POC ABG pO2 ABG pO2 ABG HCO3 ABG Base Excess ABG Hemoglobin Oxyhemoglobin Sodium Potassium Chloride Carbon Dioxide BUN Creatinine Glucose POC Glucose 126 H 125 H Lactic Acid Calcium Phosphorus Magnesium Direct Bilirubin AST ALT Alkaline Phosphatase Lactate Dehydrogenase Troponin T C-Reactive Protein Total Protein Albumin Prealbumin Triglycerides Cholesterol LDL Cholesterol Direct HDL Cholesterol Urine pH Urine WBC (Auto) Urine Creatinine Urine Total Protein Fluid Total Protein Vancomycin Trough Rheumatoid Factor Complement C4 Miscellaneous Test Crossmatch 01/15/17 01/15/17 01/15/17 12:45 17:31 23:39 WBC RBC Hgb Hct MCV MCH MCHC RDW Plt Count Lymph % (Auto) [place] % (Auto) Lymph # [place] # Baso # Seg Neutrophils % Seg Neuts % (Manual) Lymphocytes % (Manual) Monocytes % (Manual) Eosinophils % (Manual) Basophils % (Manual) Nucleated RBC % Seg Neutrophils # Seg Neutrophils # Man Lymphocytes # (Manual) Monocytes # (Manual) Eosinophils # (Manual) Basophils # (Manual) PT INR Fibrinogen dRVVT Confirm Interp Factor V Activity POC ABG pH POC ABG pCO2 POC ABG pO2 ABG pO2 ABG HCO3 ABG Base Excess ABG Hemoglobin Oxyhemoglobin Sodium 136 L Potassium Chloride Carbon Dioxide BUN 87 H Creatinine 1.7 H Glucose 108 H POC Glucose 129 H 112 H Lactic Acid Calcium Phosphorus Magnesium Direct Bilirubin AST ALT Alkaline Phosphatase Lactate Dehydrogenase Troponin T C-Reactive Protein Total Protein Albumin Prealbumin Triglycerides Cholesterol LDL Cholesterol Direct HDL Cholesterol Urine pH Urine WBC (Auto) Urine Creatinine Urine Total Protein Fluid Total Protein Vancomycin Trough Rheumatoid Factor Complement C4 Miscellaneous Test Crossmatch 01/16/17 01/16/17 01/16/17 05:23 11:42 12:32 WBC RBC Hgb Hct MCV MCH MCHC RDW Plt Count Lymph % (Auto) [place] % (Auto) Lymph # [place] # Baso # Seg Neutrophils % Seg Neuts % (Manual) Lymphocytes % (Manual) Monocytes % (Manual) Eosinophils % (Manual) Basophils % (Manual) Nucleated RBC % Seg Neutrophils # Seg Neutrophils # Man Lymphocytes # (Manual) Monocytes # (Manual) Eosinophils # (Manual) Basophils # (Manual) PT INR Fibrinogen dRVVT Confirm Interp Factor V Activity POC ABG pH 7.499 H POC ABG pCO2 30.9 L POC ABG pO2 51 L ABG pO2 ABG HCO3 ABG Base Excess ABG Hemoglobin Oxyhemoglobin Sodium Potassium Chloride Carbon Dioxide BUN Creatinine Glucose POC Glucose 118 H 133 H Lactic Acid Calcium Phosphorus Magnesium Direct Bilirubin AST ALT Alkaline Phosphatase Lactate Dehydrogenase Troponin T C-Reactive Protein Total Protein Albumin Prealbumin Triglycerides Cholesterol LDL Cholesterol Direct HDL Cholesterol Urine pH Urine WBC (Auto) Urine Creatinine Urine Total Protein Fluid Total Protein Vancomycin Trough Rheumatoid Factor Complement C4 Miscellaneous Test Crossmatch 01/16/17 01/16/17 01/16/17 17:52 23:57 Unknown WBC RBC Hgb Hct MCV MCH MCHC RDW Plt Count Lymph % (Auto) [place] % (Auto) Lymph # [place] # Baso # Seg Neutrophils % Seg Neuts % (Manual) Lymphocytes % (Manual) Monocytes % (Manual) Eosinophils % (Manual) Basophils % (Manual) Nucleated RBC % Seg Neutrophils # Seg Neutrophils # Man Lymphocytes # (Manual) Monocytes # (Manual) Eosinophils # (Manual) Basophils # (Manual) PT INR Fibrinogen dRVVT Confirm Interp Factor V Activity POC ABG pH POC ABG pCO2 POC ABG pO2 ABG pO2 ABG HCO3 ABG Base Excess ABG Hemoglobin Oxyhemoglobin Sodium 135 L Potassium Chloride Carbon Dioxide BUN 101 H Creatinine 1.8 H Glucose 117 H POC Glucose 130 H 143 H Lactic Acid Calcium Phosphorus 5.80 H Magnesium Direct Bilirubin AST ALT Alkaline Phosphatase Lactate Dehydrogenase Troponin T C-Reactive Protein Total Protein Albumin Prealbumin Triglycerides Cholesterol LDL Cholesterol Direct HDL Cholesterol Urine pH Urine WBC (Auto) Urine Creatinine Urine Total Protein Fluid Total Protein Vancomycin Trough Rheumatoid Factor Complement C4 Miscellaneous Test Crossmatch 01/17/17 01/17/17 01/17/17 05:30 05:46 11:49 WBC RBC Hgb Hct MCV MCH MCHC RDW Plt Count Lymph % (Auto) [place] % (Auto) Lymph # [place] # Baso # Seg Neutrophils % Seg Neuts % (Manual) Lymphocytes % (Manual) Monocytes % (Manual) Eosinophils % (Manual) Basophils % (Manual) Nucleated RBC % Seg Neutrophils # Seg Neutrophils # Man Lymphocytes # (Manual) Monocytes # (Manual) Eosinophils # (Manual) Basophils # (Manual) PT INR Fibrinogen dRVVT Confirm Interp Factor V Activity POC ABG pH POC ABG pCO2 POC ABG pO2 ABG pO2 ABG HCO3 ABG Base Excess ABG Hemoglobin Oxyhemoglobin Sodium 134 L Potassium Chloride 95.8 L Carbon Dioxide BUN 66 H Creatinine 1.3 H Glucose 138 H POC Glucose 147 H 124 H Lactic Acid Calcium Phosphorus Magnesium Direct Bilirubin AST ALT Alkaline Phosphatase 254 H Lactate Dehydrogenase Troponin T C-Reactive Protein Total Protein Albumin 1.3 L Prealbumin Triglycerides Cholesterol LDL Cholesterol Direct HDL Cholesterol Urine pH Urine WBC (Auto) Urine Creatinine Urine Total Protein Fluid Total Protein Vancomycin Trough Rheumatoid Factor Complement C4 Miscellaneous Test Crossmatch 01/17/17 01/17/17 01/18/17 17:30 23:41 05:15 WBC RBC Hgb Hct MCV MCH MCHC RDW Plt Count Lymph % (Auto) [place] % (Auto) Lymph # [place] # Baso # Seg Neutrophils % Seg Neuts % (Manual) Lymphocytes % (Manual) Monocytes % (Manual) Eosinophils % (Manual) Basophils % (Manual) Nucleated RBC % Seg Neutrophils # Seg Neutrophils # Man Lymphocytes # (Manual) Monocytes # (Manual) Eosinophils # (Manual) Basophils # (Manual) PT INR Fibrinogen dRVVT Confirm Interp Factor V Activity POC ABG pH POC ABG pCO2 POC ABG pO2 ABG pO2 ABG HCO3 ABG Base Excess ABG Hemoglobin Oxyhemoglobin Sodium Potassium Chloride Carbon Dioxide BUN 89 H Creatinine 1.7 H Glucose 118 H POC Glucose 137 H 119 H Lactic Acid Calcium Phosphorus Magnesium Direct Bilirubin AST ALT Alkaline Phosphatase Lactate Dehydrogenase Troponin T C-Reactive Protein Total Protein Albumin Prealbumin Triglycerides Cholesterol LDL Cholesterol Direct HDL Cholesterol Urine pH Urine WBC (Auto) Urine Creatinine Urine Total Protein Fluid Total Protein Vancomycin Trough Rheumatoid Factor Complement C4 Miscellaneous Test Crossmatch 01/18/17 01/18/17 01/18/17 05:19 12:16 18:11 WBC RBC Hgb Hct MCV MCH MCHC RDW Plt Count Lymph % (Auto) [place] % (Auto) Lymph # [place] # Baso # Seg Neutrophils % Seg Neuts % (Manual) Lymphocytes % (Manual) Monocytes % (Manual) Eosinophils % (Manual) Basophils % (Manual) Nucleated RBC % Seg Neutrophils # Seg Neutrophils # Man Lymphocytes # (Manual) Monocytes # (Manual) Eosinophils # (Manual) Basophils # (Manual) PT INR Fibrinogen dRVVT Confirm Interp Factor V Activity POC ABG pH POC ABG pCO2 POC ABG pO2 ABG pO2 ABG HCO3 ABG Base Excess ABG Hemoglobin Oxyhemoglobin Sodium Potassium Chloride Carbon Dioxide BUN Creatinine Glucose POC Glucose 134 H 188 H 113 H Lactic Acid Calcium Phosphorus Magnesium Direct Bilirubin AST ALT Alkaline Phosphatase Lactate Dehydrogenase Troponin T C-Reactive Protein Total Protein Albumin Prealbumin Triglycerides Cholesterol LDL Cholesterol Direct HDL Cholesterol Urine pH Urine WBC (Auto) Urine Creatinine Urine Total Protein Fluid Total Protein Vancomycin Trough Rheumatoid Factor Complement C4 Miscellaneous Test Crossmatch 01/19/17 01/19/17 01/19/17 00:00 05:30 05:36 WBC RBC Hgb Hct MCV MCH MCHC RDW Plt Count Lymph % (Auto) [place] % (Auto) Lymph # [place] # Baso # Seg Neutrophils % Seg Neuts % (Manual) Lymphocytes % (Manual) Monocytes % (Manual) Eosinophils % (Manual) Basophils % (Manual) Nucleated RBC % Seg Neutrophils # Seg Neutrophils # Man Lymphocytes # (Manual) Monocytes # (Manual) Eosinophils # (Manual) Basophils # (Manual) PT INR Fibrinogen dRVVT Confirm Interp Factor V Activity POC ABG pH POC ABG pCO2 POC ABG pO2 ABG pO2 ABG HCO3 ABG Base Excess ABG Hemoglobin Oxyhemoglobin Sodium Potassium Chloride Carbon Dioxide BUN 70 H Creatinine 1.5 H Glucose 121 H POC Glucose 137 H 155 H Lactic Acid Calcium Phosphorus 2.10 L D Magnesium Direct Bilirubin AST ALT Alkaline Phosphatase Lactate Dehydrogenase Troponin T C-Reactive Protein Total Protein Albumin Prealbumin Triglycerides Cholesterol LDL Cholesterol Direct HDL Cholesterol Urine pH Urine WBC (Auto) Urine Creatinine Urine Total Protein Fluid Total Protein Vancomycin Trough Rheumatoid Factor Complement C4 Miscellaneous Test Crossmatch 01/19/17 01/19/17 01/19/17 11:59 15:32 17:57 WBC RBC Hgb Hct MCV MCH MCHC RDW Plt Count Lymph % (Auto) [place] % (Auto) Lymph # [place] # Baso # Seg Neutrophils % Seg Neuts % (Manual) Lymphocytes % (Manual) Monocytes % (Manual) Eosinophils % (Manual) Basophils % (Manual) Nucleated RBC % Seg Neutrophils # Seg Neutrophils # Man Lymphocytes # (Manual) Monocytes # (Manual) Eosinophils # (Manual) Basophils # (Manual) PT INR Fibrinogen dRVVT Confirm Interp Factor V Activity POC ABG pH POC ABG pCO2 33.1 L POC ABG pO2 76 L ABG pO2 ABG HCO3 ABG Base Excess ABG Hemoglobin Oxyhemoglobin Sodium Potassium Chloride Carbon Dioxide BUN Creatinine Glucose POC Glucose 156 H 129 H Lactic Acid Calcium Phosphorus Magnesium Direct Bilirubin AST ALT Alkaline Phosphatase Lactate Dehydrogenase Troponin T C-Reactive Protein Total Protein Albumin Prealbumin Triglycerides Cholesterol LDL Cholesterol Direct HDL Cholesterol Urine pH Urine WBC (Auto) Urine Creatinine Urine Total Protein Fluid Total Protein Vancomycin Trough Rheumatoid Factor Complement C4 Miscellaneous Test Crossmatch 01/19/17 01/20/17 01/20/17 23:49 04:00 05:21 WBC RBC Hgb Hct MCV MCH MCHC RDW Plt Count Lymph % (Auto) [place] % (Auto) Lymph # [place] # Baso # Seg Neutrophils % Seg Neuts % (Manual) Lymphocytes % (Manual) Monocytes % (Manual) Eosinophils % (Manual) Basophils % (Manual) Nucleated RBC % Seg Neutrophils # Seg Neutrophils # Man Lymphocytes # (Manual) Monocytes # (Manual) Eosinophils # (Manual) Basophils # (Manual) PT INR Fibrinogen dRVVT Confirm Interp Factor V Activity POC ABG pH POC ABG pCO2 POC ABG pO2 ABG pO2 ABG HCO3 ABG Base Excess ABG Hemoglobin Oxyhemoglobin Sodium Potassium Chloride Carbon Dioxide BUN 96 H Creatinine 1.9 H Glucose 106 H POC Glucose 125 H 130 H Lactic Acid Calcium Phosphorus 2.40 L Magnesium Direct Bilirubin AST ALT Alkaline Phosphatase Lactate Dehydrogenase Troponin T C-Reactive Protein Total Protein Albumin Prealbumin Triglycerides Cholesterol LDL Cholesterol Direct HDL Cholesterol Urine pH Urine WBC (Auto) Urine Creatinine Urine Total Protein Fluid Total Protein Vancomycin Trough Rheumatoid Factor Complement C4 Miscellaneous Test Crossmatch 01/20/17 01/20/17 01/20/17 11:58 12:17 17:26 WBC RBC Hgb Hct MCV MCH MCHC RDW Plt Count Lymph % (Auto) [place] % (Auto) Lymph # [place] # Baso # Seg Neutrophils % Seg Neuts % (Manual) Lymphocytes % (Manual) Monocytes % (Manual) Eosinophils % (Manual) Basophils % (Manual) Nucleated RBC % Seg Neutrophils # Seg Neutrophils # Man Lymphocytes # (Manual) Monocytes # (Manual) Eosinophils # (Manual) Basophils # (Manual) PT INR Fibrinogen dRVVT Confirm Interp Factor V Activity POC ABG pH POC ABG pCO2 POC ABG pO2 70 L ABG pO2 ABG HCO3 ABG Base Excess ABG Hemoglobin Oxyhemoglobin Sodium Potassium Chloride Carbon Dioxide BUN Creatinine Glucose POC Glucose 118 H 154 H Lactic Acid Calcium Phosphorus Magnesium Direct Bilirubin AST ALT Alkaline Phosphatase Lactate Dehydrogenase Troponin T C-Reactive Protein Total Protein Albumin Prealbumin Triglycerides Cholesterol LDL Cholesterol Direct HDL Cholesterol Urine pH Urine WBC (Auto) Urine Creatinine Urine Total Protein Fluid Total Protein Vancomycin Trough Rheumatoid Factor Complement C4 Miscellaneous Test Crossmatch 01/21/17 01/21/17 01/21/17 04:00 04:56 11:46 WBC RBC Hgb Hct MCV MCH MCHC RDW Plt Count Lymph % (Auto) [place] % (Auto) Lymph # [place] # Baso # Seg Neutrophils % Seg Neuts % (Manual) Lymphocytes % (Manual) Monocytes % (Manual) Eosinophils % (Manual) Basophils % (Manual) Nucleated RBC % Seg Neutrophils # Seg Neutrophils # Man Lymphocytes # (Manual) Monocytes # (Manual) Eosinophils # (Manual) Basophils # (Manual) PT INR Fibrinogen dRVVT Confirm Interp Factor V Activity POC ABG pH POC ABG pCO2 POC ABG pO2 ABG pO2 ABG HCO3 ABG Base Excess ABG Hemoglobin Oxyhemoglobin Sodium Potassium 3.5 L Chloride 97.4 L Carbon Dioxide BUN 66 H Creatinine 1.4 H Glucose POC Glucose 116 H 106 H Lactic Acid Calcium Phosphorus 2.10 L Magnesium Direct Bilirubin AST ALT Alkaline Phosphatase Lactate Dehydrogenase Troponin T C-Reactive Protein Total Protein Albumin Prealbumin Triglycerides Cholesterol LDL Cholesterol Direct HDL Cholesterol Urine pH Urine WBC (Auto) Urine Creatinine Urine Total Protein Fluid Total Protein Vancomycin Trough Rheumatoid Factor Complement C4 Miscellaneous Test Crossmatch 01/21/17 01/21/17 01/22/17 17:25 23:49 05:35 WBC RBC Hgb Hct MCV MCH MCHC RDW Plt Count Lymph % (Auto) [place] % (Auto) Lymph # [place] # Baso # Seg Neutrophils % Seg Neuts % (Manual) Lymphocytes % (Manual) Monocytes % (Manual) Eosinophils % (Manual) Basophils % (Manual) Nucleated RBC % Seg Neutrophils # Seg Neutrophils # Man Lymphocytes # (Manual) Monocytes # (Manual) Eosinophils # (Manual) Basophils # (Manual) PT INR Fibrinogen dRVVT Confirm Interp Factor V Activity POC ABG pH POC ABG pCO2 POC ABG pO2 ABG pO2 ABG HCO3 ABG Base Excess ABG Hemoglobin Oxyhemoglobin Sodium Potassium Chloride Carbon Dioxide BUN Creatinine Glucose POC Glucose 106 H 133 H 107 H Lactic Acid Calcium Phosphorus Magnesium Direct Bilirubin AST ALT Alkaline Phosphatase Lactate Dehydrogenase Troponin T C-Reactive Protein Total Protein Albumin Prealbumin Triglycerides Cholesterol LDL Cholesterol Direct HDL Cholesterol Urine pH Urine WBC (Auto) Urine Creatinine Urine Total Protein Fluid Total Protein Vancomycin Trough Rheumatoid Factor Complement C4 Miscellaneous Test Crossmatch 01/22/17 01/22/17 01/22/17 07:20 07:20 11:31 WBC RBC 2.75 L Hgb 7.5 L Hct 22.7 L MCV MCH 27 L MCHC RDW 17.5 H Plt Count Lymph % (Auto) [place] % (Auto) Lymph # [place] # Baso # Seg Neutrophils % Seg Neuts % (Manual) Lymphocytes % (Manual) Monocytes % (Manual) Eosinophils % (Manual) Basophils % (Manual) Nucleated RBC % Seg Neutrophils # Seg Neutrophils # Man Lymphocytes # (Manual) Monocytes # (Manual) Eosinophils # (Manual) Basophils # (Manual) PT INR Fibrinogen dRVVT Confirm Interp Factor V Activity POC ABG pH POC ABG pCO2 POC ABG pO2 ABG pO2 ABG HCO3 ABG Base Excess ABG Hemoglobin Oxyhemoglobin Sodium Potassium 3.3 L Chloride Carbon Dioxide BUN 42 H Creatinine Glucose 105 H POC Glucose 124 H Lactic Acid Calcium Phosphorus 1.70 L Magnesium Direct Bilirubin AST ALT Alkaline Phosphatase Lactate Dehydrogenase Troponin T C-Reactive Protein Total Protein Albumin Prealbumin Triglycerides Cholesterol LDL Cholesterol Direct HDL Cholesterol Urine pH Urine WBC (Auto) Urine Creatinine Urine Total Protein Fluid Total Protein Vancomycin Trough Rheumatoid Factor Complement C4 Miscellaneous Test Crossmatch 01/22/17 01/22/17 01/23/17 17:16 23:35 05:35 WBC RBC Hgb Hct MCV MCH MCHC RDW Plt Count Lymph % (Auto) [place] % (Auto) Lymph # [place] # Baso # Seg Neutrophils % Seg Neuts % (Manual) Lymphocytes % (Manual) Monocytes % (Manual) Eosinophils % (Manual) Basophils % (Manual) Nucleated RBC % Seg Neutrophils # Seg Neutrophils # Man Lymphocytes # (Manual) Monocytes # (Manual) Eosinophils # (Manual) Basophils # (Manual) PT INR Fibrinogen dRVVT Confirm Interp Factor V Activity POC ABG pH POC ABG pCO2 POC ABG pO2 ABG pO2 ABG HCO3 ABG Base Excess ABG Hemoglobin Oxyhemoglobin Sodium Potassium Chloride Carbon Dioxide BUN Creatinine Glucose POC Glucose 135 H 120 H 111 H Lactic Acid Calcium Phosphorus Magnesium Direct Bilirubin AST ALT Alkaline Phosphatase Lactate Dehydrogenase Troponin T C-Reactive Protein Total Protein Albumin Prealbumin Triglycerides Cholesterol LDL Cholesterol Direct HDL Cholesterol Urine pH Urine WBC (Auto) Urine Creatinine Urine Total Protein Fluid Total Protein Vancomycin Trough Rheumatoid Factor Complement C4 Miscellaneous Test Crossmatch 01/23/17 01/23/17 01/23/17 06:10 17:27 23:44 WBC RBC Hgb Hct MCV MCH MCHC RDW Plt Count Lymph % (Auto) [place] % (Auto) Lymph # [place] # Baso # Seg Neutrophils % Seg Neuts % (Manual) Lymphocytes % (Manual) Monocytes % (Manual) Eosinophils % (Manual) Basophils % (Manual) Nucleated RBC % Seg Neutrophils # Seg Neutrophils # Man Lymphocytes # (Manual) Monocytes # (Manual) Eosinophils # (Manual) Basophils # (Manual) PT INR Fibrinogen dRVVT Confirm Interp Factor V Activity POC ABG pH POC ABG pCO2 POC ABG pO2 ABG pO2 ABG HCO3 ABG Base Excess ABG Hemoglobin Oxyhemoglobin Sodium Potassium 3.3 L Chloride Carbon Dioxide BUN 66 H Creatinine 1.3 H Glucose 109 H POC Glucose 120 H 115 H Lactic Acid Calcium Phosphorus 2.20 L D Magnesium Direct Bilirubin AST ALT Alkaline Phosphatase Lactate Dehydrogenase Troponin T C-Reactive Protein Total Protein Albumin Prealbumin Triglycerides Cholesterol LDL Cholesterol Direct HDL Cholesterol Urine pH Urine WBC (Auto) Urine Creatinine Urine Total Protein Fluid Total Protein Vancomycin Trough Rheumatoid Factor Complement C4 Miscellaneous Test Crossmatch 01/24/17 01/24/17 01/24/17 05:19 05:50 12:19 WBC RBC Hgb Hct MCV MCH MCHC RDW Plt Count Lymph % (Auto) [place] % (Auto) Lymph # [place] # Baso # Seg Neutrophils % Seg Neuts % (Manual) Lymphocytes % (Manual) Monocytes % (Manual) Eosinophils % (Manual) Basophils % (Manual) Nucleated RBC % Seg Neutrophils # Seg Neutrophils # Man Lymphocytes # (Manual) Monocytes # (Manual) Eosinophils # (Manual) Basophils # (Manual) PT INR Fibrinogen dRVVT Confirm Interp Factor V Activity POC ABG pH POC ABG pCO2 POC ABG pO2 ABG pO2 ABG HCO3 ABG Base Excess ABG Hemoglobin Oxyhemoglobin Sodium Potassium Chloride Carbon Dioxide BUN 47 H Creatinine Glucose 117 H POC Glucose 126 H 119 H Lactic Acid Calcium Phosphorus 2.30 L Magnesium 1.60 L Direct Bilirubin AST ALT Alkaline Phosphatase Lactate Dehydrogenase Troponin T C-Reactive Protein Total Protein Albumin Prealbumin Triglycerides Cholesterol LDL Cholesterol Direct HDL Cholesterol Urine pH Urine WBC (Auto) Urine Creatinine Urine Total Protein Fluid Total Protein Vancomycin Trough Rheumatoid Factor Complement C4 Miscellaneous Test Crossmatch 01/24/17 01/25/17 01/25/17 17:08 00:37 04:00 WBC RBC Hgb Hct MCV MCH MCHC RDW Plt Count Lymph % (Auto) [place] % (Auto) Lymph # [place] # Baso # Seg Neutrophils % Seg Neuts % (Manual) Lymphocytes % (Manual) Monocytes % (Manual) Eosinophils % (Manual) Basophils % (Manual) Nucleated RBC % Seg Neutrophils # Seg Neutrophils # Man Lymphocytes # (Manual) Monocytes # (Manual) Eosinophils # (Manual) Basophils # (Manual) PT INR Fibrinogen dRVVT Confirm Interp Factor V Activity POC ABG pH POC ABG pCO2 POC ABG pO2 ABG pO2 ABG HCO3 ABG Base Excess ABG Hemoglobin Oxyhemoglobin Sodium Potassium Chloride Carbon Dioxide BUN 72 H Creatinine 1.3 H Glucose POC Glucose 127 H 110 H Lactic Acid Calcium Phosphorus Magnesium Direct Bilirubin AST ALT Alkaline Phosphatase Lactate Dehydrogenase Troponin T C-Reactive Protein Total Protein Albumin Prealbumin Triglycerides Cholesterol LDL Cholesterol Direct HDL Cholesterol Urine pH Urine WBC (Auto) Urine Creatinine Urine Total Protein Fluid Total Protein Vancomycin Trough Rheumatoid Factor Complement C4 Miscellaneous Test Crossmatch 01/25/17 04:00 WBC RBC 2.49 L Hgb 6.7 L Hct 20.9 L MCV MCH 27 L MCHC RDW 18.8 H Plt Count Lymph % (Auto) [place] % (Auto) 10.1 H Lymph # [place] # 1.0 H Baso # Seg Neutrophils % Seg Neuts % (Manual) Lymphocytes % (Manual) Monocytes % (Manual) Eosinophils % (Manual) Basophils % (Manual) Nucleated RBC % Seg Neutrophils # Seg Neutrophils # Man Lymphocytes # (Manual) Monocytes # (Manual) Eosinophils # (Manual) Basophils # (Manual) PT INR Fibrinogen dRVVT Confirm Interp Factor V Activity POC ABG pH POC ABG pCO2 POC ABG pO2 ABG pO2 ABG HCO3 ABG Base Excess ABG Hemoglobin Oxyhemoglobin Sodium Potassium Chloride Carbon Dioxide BUN Creatinine Glucose POC Glucose Lactic Acid Calcium Phosphorus Magnesium Direct Bilirubin AST ALT Alkaline Phosphatase Lactate Dehydrogenase Troponin T C-Reactive Protein Total Protein Albumin Prealbumin Triglycerides Cholesterol LDL Cholesterol Direct HDL Cholesterol Urine pH Urine WBC (Auto) Urine Creatinine Urine Total Protein Fluid Total Protein Vancomycin Trough Rheumatoid Factor Complement C4 Miscellaneous Test Crossmatch Allied health notes reviewed: RT (not tolerating weaning. Has been on PS 18/5, desaturations if PS is weaned)
[2017-01-25] MEDS ORDERED: NACL 0.9% 500 ML 500 ML IV ONE ×2 (10:28→15:01)
[2017-01-25] MEDS: NORVASC PO SCH (11:00)
[2017-01-25] MEDS: DURAGESIC TD SCH (11:00)
[2017-01-25] MEDS: ROBINUL PO SCH ×2 (11:01→22:22)
[2017-01-25] MEDS: HEPARIN SUB-Q SCH ×2 (11:01→22:22)
[2017-01-25] MEDS: PROTONIX FEEDTUBE SCH (11:01)
--- NOTE | 2017-01-25 11:27 | Progress Note ---
Assessment and Plan Assessment: 1) Recurrent SIRS: unclear source, fever better. 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 gastric perf (PEG placed on 09/20) +/- TPN +/- central lines -TTE 10/07 no vegetations -PICC exchanged on 10/03 -fully treated with micafungin for 14 days last day 10/13 4) History CA-UTI s/p gutierrez exchanged 5) Diarrhea - ? etiology ? antibiotic-induced, not better. 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 from GI bleed 13) Recent abdominal wall abscess at surgical site-treated 14 ) Recent Enterococcal bacteremia from PICC line infection. 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 no cultures obtained - worsening 16) Presumed VAP: sputum + MDR Pseudomonas / Proteus Plan: -continue meropenem total 4 weeks until 02/04 -to the OR for further debridement -please obtain deep wound cx Thank you Dr Brown or your consultation, will follow up with you. Pauline Carias MD Infectious Diseases Specialist [facility] ([facility] M [phone] O [phone] Subjective Date of service: 01/25/17 Principal diagnosis: Acute resp failure on MVS; S/P Acute CVA; Acute Encephalopathy; JUANITA Interval history: Interval history: Alert, no fever, remains on the vent via trach + TPN Microbiology: Blood cultures: 09/13 neg 8/ Silvia albicans / Silvia / neg 10/07 neg 11/05 neg 11/07 ngtd 11/22 E faecalis 1 of 4 bottles 11/25 neg 12/27 neg 01/09 ngtd Urine cultures: 09/10 neg 09/13 neg 8/ 10-100K mixed species 10/07 neg 11/05 VRE 11/07 mixed bacteria Respiratory cultures: 09/07 neg 09/13 neg 09/23 neg 11/07 MDR Pseudomonas 10 tracheal + VRE 01/09 Pseudomonas x 3 and Proteues Pleural effusion: ngtd Wound cultures: 10/17 abd wall wound purulence + Pseudomonas MDR Stool cultures: cath tip 11/07 + [employer]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 +NGT with greenish secretion Neck: +trach in place; supple, no thyromegaly or lymphadenopathy Lungs: brit coarse BS CV: rrr Abdomen: Soft, non-tender, +old PEG site no drainage. +iliostomy. 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 Necrotic tissue noted on the wound edges and in the wound bed Psych: somnolent . Neuro: alert non verbal on the vent. Lines: PICC / gutierrez - Constitutional Vitals: Vital Signs Temp Pulse Resp BP Pulse Ox 97.5 F L 99 H 30 H 99/61 100 01/25/17 09:26 01/25/17 10:46 01/25/17 10:46 01/25/17 10:46 01/25/17 10:46 Temperature -Last 24 Hours Temperature 97.5 F Temperature 98.9 F Temperature 97.5 F Temperature 98.6 F Temperature 98.7 F Temperature 97.8 F - Labs CBC & Chem 7: 01/25/17 04:00 01/25/17 04:00 Labs: Abnormal lab results 01/24/17 01/24/17 01/25/17 Range/Units 12:19 17:08 00:37 RBC (3.65-5.03) M/mm3 Hgb (10.1-14.3) gm/dl Hct (30.3-42.9) % MCH (28-32) pg RDW (13.2-15.2) % [place] % (Auto) (0.0-7.3) % [place] # (0.0-0.8) K/mm3 BUN (7-17) mg/dL Creatinine (0.7-1.2) mg/dL POC Glucose 119 H 127 H 110 H (70-105) 01/25/17 01/25/17 Range/Units 04:00 04:00 RBC 2.49 L (3.65-5.03) M/mm3 Hgb 6.7 L (10.1-14.3) gm/dl Hct 20.9 L (30.3-42.9) % MCH 27 L (28-32) pg RDW 18.8 H (13.2-15.2) % [place] % (Auto) 10.1 H (0.0-7.3) % [place] # 1.0 H (0.0-0.8) K/mm3 BUN 72 H (7-17) mg/dL Creatinine 1.3 H (0.7-1.2) mg/dL POC Glucose (70-105)
[2017-01-25] MEDS: HEPARIN IV PRN (12:23)
[2017-01-25] MEDS: NACL 0.9% IV SCH (12:30)
[2017-01-25] MEDS: MERREM IV SCH (12:30)
[2017-01-25] MEDS ORDERED: NACL 0.9% 1000 ML 1,000 ML IV SCH (13:00)
--- NOTE | 2017-01-25 18:16 | Progress Note ---
Assessment and Plan Assessment and plan: 46 years old female with massive stroke, now in vegetative state - Massive stroke with mass effect On vegetative state - Multiple episodes of sepsis with septic shock during her hospitalization Due to aspiration pneumonia/peritonitis from gastric perforation/UTI/candidemia/ decubitus ulcer Currently on meropenem with stop date 02/04 Scheduled for sacral decubitus debridement - Acute hypoxic respiratory failure Status post tracheostomy Unweanable from vent support - Acute renal failure Likely due to ATN Renal function improved significantly, creatinine reaching normal limits, but now trending up IVF and recheck - Paroxysmal atrial fibrillation with RVR Status post failed cardioversion Rate control Not on anticoagulation due to anemia/thrombocytopenia/massive stroke - Diabetes Accu-Cheks and SSI - Anemia Multifactorial, status post multiple PRBC transfusions Monitoring H&H Hgb down to 6.7 today, transfuse 1 unit PRBC and monitor - Thrombocytopenia Possible secondary to sepsis Now resolved - Electrolyte abnormalities Monitoring and replacing as needed - Severe protein calorie malnutrition TPN per dietitian - Encephalopathy Toxic metabolic initially, underlying conditions treated In vegetative state now - Per family's wishes, full code despite extremely poor prognosis History Interval history: no acute events Hospitalist Physical - Constitutional Vitals: Temp Pulse Resp BP Pulse Ox 97.5 F L 114 H 32 H 146/92 100 01/25/17 12:21 01/25/17 17:17 01/25/17 15:30 01/25/17 17:17 01/25/17 17:17 General appearance: Present: mild distress - Neck Neck: Present: supple, other (trach). Absent: masses or JVD - Respiratory Respiratory effort: labored, other (on vent) Respiratory: bilateral: diminished, rhonchi, negative: wheezing - Cardiovascular Rhythm: other (tachycardic) Heart Sounds: Present: S1 & S2. Absent: systolic murmur - Extremities Extremities: no ischemia - Abdominal General gastrointestinal: soft, non-distended, normal bowel sounds, other (PEG) - Psychiatric Psychiatric: other (unresponsive) - Neurologic Neurologic: other (Lupward gaze, R hemiplegia) - Additional findings Additional findings: sacral decubitus Results - Labs CBC & Chem 7: 01/25/17 04:00 01/25/17 04:00 Labs: Laboratory Last Values WBC 9.5 K/mm3 (4.5-11.0) 01/25/17 04:00 RBC 2.49 M/mm3 (3.65-5.03) L 01/25/17 04:00 Hgb 6.7 gm/dl (10.1-14.3) L 01/25/17 04:00 Hct 20.9 % (30.3-42.9) L 01/25/17 04:00 MCV 84 fl (79-97) 01/25/17 04:00 MCH 27 pg (28-32) L 01/25/17 04:00 MCHC 32 % (30-34) 01/25/17 04:00 RDW 18.8 % (13.2-15.2) H 01/25/17 04:00 Plt Count 282 K/mm3 (140-440) 01/25/17 04:00 Lymph % (Auto) 20.4 % (13.4-35.0) 01/25/17 04:00 [place] % (Auto) 10.1 % (0.0-7.3) H 01/25/17 04:00 Eos % (Auto) 1.4 % (0.0-4.3) 01/25/17 04:00 Baso % (Auto) 0.7 % (0.0-1.8) 01/25/17 04:00 Lymph # 1.9 K/mm3 (1.2-5.4) 01/25/17 04:00 [place] # 1.0 K/mm3 (0.0-0.8) H 01/25/17 04:00 Eos # 0.1 K/mm3 (0.0-0.4) 01/25/17 04:00 Baso # 0.1 K/mm3 (0.0-0.1) 01/25/17 04:00 Add Manual Diff Complete 12/19/16 05:02 Total Counted 100 12/19/16 05:02 Seg Neutrophils % 67.4 % (40.0-70.0) 01/25/17 04:00 Seg Neuts % (Manual) 64.0 % (40.0-70.0) 12/19/16 05:02 Band Neutrophils % 15.0 % 12/19/16 05:02 Lymphocytes % (Manual) 13.0 % (13.4-35.0) L 12/19/16 05:02 Reactive Lymphs % (Man) 0 % 12/19/16 05:02 Monocytes % (Manual) 7.0 % (0.0-7.3) 12/19/16 05:02 Eosinophils % (Manual) 0 % (0.0-4.3) 12/19/16 05:02 Basophils % (Manual) 1.0 % (0.0-1.8) 12/19/16 05:02 Metamyelocytes % 0 % 12/19/16 05:02 Myelocytes % 0 % 12/19/16 05:02 Promyelocytes % 0 % 12/19/16 05:02 Blast Cells % 0 % 12/19/16 05:02 Nucleated RBC % 1.0 % (0.0-0.9) H 12/19/16 05:02 Seg Neutrophils # 6.4 K/mm3 (1.8-7.7) 01/25/17 04:00 Seg Neutrophils # Man 12.9 K/mm3 (1.8-7.7) H 12/19/16 05:02 Band Neutrophils # 3.0 K/mm3 12/19/16 05:02 Lymphocytes # (Manual) 2.6 K/mm3 (1.2-5.4) 12/19/16 05:02 Abs React Lymphs (Man) 0.0 K/mm3 12/19/16 05:02 Monocytes # (Manual) 1.4 K/mm3 (0.0-0.8) H 12/19/16 05:02 Eosinophils # (Manual) 0.0 K/mm3 (0.0-0.4) 12/19/16 05:02 Basophils # (Manual) 0.2 K/mm3 (0.0-0.1) H 12/19/16 05:02 Metamyelocytes # 0.0 K/mm3 12/19/16 05:02 Myelocytes # 0.0 K/mm3 12/19/16 05:02 Promyelocytes # 0.0 K/mm3 12/19/16 05:02 Blast Cells # 0.0 K/mm3 12/19/16 05:02 Pathologist Review 09/13/16 04:00 WBC Morphology Not Reportable 12/19/16 05:02 Hypersegmented Neuts Not Reportable 12/19/16 05:02 Hyposegmented Neuts Not Reportable 12/19/16 05:02 Hypogranular Neuts Not Reportable 12/19/16 05:02 Smudge Cells Not Reportable 12/19/16 05:02 Toxic Granulation Not Reportable 12/19/16 05:02 Toxic Vacuolation Not Reportable 12/19/16 05:02 Dohle Bodies Not Reportable 12/19/16 05:02 Pelger-Huet Anomaly Not Reportable 12/19/16 05:02 Jasmina Rods Not Reportable 12/19/16 05:02 Platelet Estimate Consistent w auto 12/19/16 05:02 Clumped Platelets Not Reportable 12/19/16 05:02 Plt Clumps, EDTA Not Reportable 12/19/16 05:02 Large Platelets Not Reportable 12/19/16 05:02 Giant Platelets Not Reportable 12/19/16 05:02 Platelet Satelliting Not Reportable 12/19/16 05:02 Plt Morphology Comment Not Reportable 12/19/16 05:02 RBC Morphology Not Reportable 12/19/16 05:02 Dimorphic RBCs Not Reportable 12/19/16 05:02 Polychromasia Not Reportable 12/19/16 05:02 Hypochromasia Not Reportable 12/19/16 05:02 Poikilocytosis Not Reportable 12/19/16 05:02 Anisocytosis Not Reportable 12/19/16 05:02 Microcytosis Not Reportable 12/19/16 05:02 Macrocytosis Not Reportable 12/19/16 05:02 Spherocytes Not Reportable 12/19/16 05:02 Pappenheimer Bodies Not Reportable 12/19/16 05:02 Sickle Cells Not Reportable 12/19/16 05:02 Target Cells Few 12/19/16 05:02 Tear Drop Cells Not Reportable 12/19/16 05:02 Ovalocytes Not Reportable 12/19/16 05:02 Stomatocytes Rare 12/03/16 04:00 Helmet Cells Not Reportable 12/19/16 05:02 [place]et-[place] Bodies Not Reportable 12/19/16 05:02 Gruver Rings Not Reportable 12/19/16 05:02 Chuck Cells Not Reportable 12/19/16 05:02 Bite Cells Not Reportable 12/19/16 05:02 Crenated Cell Not Reportable 12/19/16 05:02 Elliptocytes Not Reportable 12/19/16 05:02 Acanthocytes (Spur) Not Reportable 12/19/16 05:02 Rouleaux Not Reportable 12/19/16 05:02 Hemoglobin C Crystals Not Reportable 12/19/16 05:02 Schistocytes Not Reportable 12/19/16 05:02 Malaria parasites Not Reportable 12/19/16 05:02 ESR > 140.0 mm/Hr (0-20) 09/08/16 11:48 Jun Bodies Not Reportable 12/19/16 05:02 Hem Pathologist Commnt No 12/19/16 05:02 PT 15.4 Sec. (12.2-14.9) H 01/13/17 15:50 INR 1.16 (0.87-1.13) H 01/13/17 15:50 APTT 33.0 Sec. (24.2-36.6) 10/09/16 03:45 Thrombin Time 16.8 Sec. (15.1-19.6) 09/03/16 00:10 Fibrinogen 750 mg/dl (211-480) H 09/08/16 11:48 Lupus Anticoagulant see below 09/12/16 09:59 LA PTT Baseline See scanned report 09/12/16 09:59 dRVVT Confirm Interp Positive (Negative) H 09/12/16 09:59 dRVVT Screen 50:50 See scanned report 09/12/16 09:59 dRVVT Mix Interpret See scanned report 09/12/16 09:59 Protein C Antigen 122 % (70-140) 09/08/16 15:35 Free Protein S 97 % normal (50-147) 09/08/16 15:35 Total Protein S 109 % (70-140) 09/08/16 15:35 Antithrombin III Ag 100 % (80-120) 09/08/16 15:35 Heparin Anti-Xa, Unfract Negative (Negative) 09/29/16 13:35 Factor V Activity 182 % (65-150) H 09/08/16 15:35 POC ABG pH 7.436 (7.35-7.45) 01/20/17 12: ABG pH 7.450 pH Units (7.350-7.450) 12/05/16 Unknown POC ABG pCO2 35.3 (35-45) 01/20/17 12: ABG pCO2 29.6 mm Hg 12/05/16 Unknown POC ABG pO2 70 (80-105) L 01/20/17 12: ABG pO2 75.2 mm Hg (80.0-90.0) L 12/05/16 Unknown POC ABG HCO3 23.8 01/20/17 12: ABG HCO3 20.1 mmol/L (20.0-26.0) 12/05/16 Unknown POC ABG Total CO2 25 01/20/17 12: POC ABG O2 Sat 94 01/20/17 12: ABG O2 Saturation 96.8 % (95.0-99.0) 12/05/16 Unknown ABG O2 Content 9.9 (0.0-44) 12/05/16 Unknown POC ABG Base Excess 0 01/20/17 12: ABG Base Excess -3.4 mmol/L (-2.0-3.0) L 12/05/16 Unknown ABG Hemoglobin 7.4 gm/dl (12.0-16.0) L 12/05/16 Unknown ABG Carboxyhemoglobin 1.8 % (0.0-5.0) 12/05/16 Unknown ABG Methemoglobin 0.6 % (0.0-1.5) 12/05/16 Unknown Oxyhemoglobin 94.5 % (95.0-99.0) L 12/05/16 Unknown FiO2 30 % 01/20/17 12:17 Sodium 137 mmol/L (137-145) 01/25/17 04:00 Potassium 4.3 mmol/L (3.6-5.0) 01/25/17 04:00 Chloride 99.4 mmol/L (98-107) 01/25/17 04:00 Carbon Dioxide 24 mmol/L (22-30) 01/25/17 04:00 Anion Gap 18 mmol/L 01/25/17 04:00 BUN 72 mg/dL (7-17) H 01/25/17 04:00 Creatinine 1.3 mg/dL (0.7-1.2) H 01/25/17 04:00 Estimated GFR 54 ml/min 01/25/17 04:00 BUN/Creatinine Ratio 55 % 01/25/17 04:00 Glucose 97 mg/dL (65-100) 01/25/17 04:00 POC Glucose 128 (70-105) H 01/25/17 13:05 Osmolality 351 Mosm/kg 09/16/16 11:47 Lactic Acid 2.30 mmol/L (0.7-2.0) H* 01/09/17 08:22 Calcium 9.4 mg/dL (8.4-10.2) 01/25/17 04:00 Phosphorus 3.90 mg/dL (2.5-4.5) D 01/25/17 04:00 Magnesium 2.00 mg/dL (1.7-2.3) 01/25/17 04:00 Total Bilirubin 0.40 mg/dL (0.1-1.2) 01/17/17 05:30 Direct Bilirubin 0.3 mg/dL (0-0.2) H 10/10/16 05:00 Indirect Bilirubin 0.1 mg/dL 10/10/16 05:00 AST 26 units/L (5-40) 01/17/17 05:30 ALT 35 units/L (7-56) 01/17/17 05:30 Alkaline Phosphatase 254 units/L (35-129) H 01/17/17 05:30 Ammonia 27.0 umol/L (25-60) 09/07/16 08:37 Lactate Dehydrogenase 170 units/L (91-180) 01/13/17 15:50 Total Creatine Kinase 121 units/L (30-135) 09/29/16 20:12 CK-MB (CK-2) < 1.0 ng/mL (0.0-4.0) 09/29/16 20:12 CK-MB (CK-2) Rel Index 0.8 (0-4) 09/29/16 20:12 Troponin T 0.204 ng/mL (0.00-0.029) H* 09/29/16 20:12 C-Reactive Protein 24.70 mg/dL (0.00-1.30) H 01/09/17 13:30 Total Protein 6.6 g/dL (6.3-8.2) 01/17/17 05:30 Albumin 1.3 g/dL (3.9-5) L 01/17/17 05:30 Albumin/Globulin Ratio 0.2 % 01/17/17 05:30 Prealbumin 0.110 g/L (0.200-0.400) L 12/29/16 05:15 Triglycerides 137 mg/dL (2-149) 09/29/16 20:12 Cholesterol 31 mg/dL (50-199) L 09/29/16 20:12 LDL Cholesterol Direct 4 mg/dL (50-130) L 09/29/16 20:12 HDL Cholesterol 3 mg/dL (40-59) L 09/29/16 20:12 Cholesterol/HDL Ratio 10.33 % 09/29/16 20:12 Angiotensin Convert Enz See scanned report 09/08/16 11:48 Renin 0.99 ng/mL/h (0.25-5.82) 10/07/16 10:56 Aldosterone <1 ng/dL () 10/07/16 10:56 Aldosterone/Renin Dir see below 10/07/16 10:56 Serotonin Release Assay See scanned report 09/29/16 13:35 TSH 1.010 mlU/mL (0.270-4.200) 09/07/16 08:37 HCG, Qual Negative (Negative) 09/03/16 00:10 Urine Color Yellow (Yellow) 11/05/16 13:09 Urine Turbidity Clear (Clear) 11/05/16 13:09 Urine pH 9.0 (5.0-7.0) H 11/05/16 13:09 Ur Specific [place] 1.011 (1.003-1.030) 11/05/16 13:09 Urine Protein 100 mg/dl mg/dL (Negative) 11/05/16 13:09 Urine Glucose (UA) Neg mg/dL (Negative) 11/05/16 13:09 Urine Ketones Neg mg/dL (Negative) 11/05/16 13:09 Urine Blood Neg (Negative) 11/05/16 13:09 Urine Nitrite Neg (Negative) 11/05/16 13:09 Urine Bilirubin Neg (Negative) 11/05/16 13:09 Urine Urobilinogen < 2.0 mg/dL (<2.0) 11/05/16 13:09 Ur Leukocyte Esterase Neg (Negative) 11/05/16 13:09 Urine WBC (Auto) 4.0 /HPF (0.0-6.0) 11/05/16 13:09 Urine RBC (Auto) 1.0 /HPF (0.0-6.0) 11/05/16 13:09 U Epithel Cells (Auto) 1.0 /HPF (0-13.0) 10/07/16 18:30 Urine Bacteria (Auto) 4+ /HPF (Negative) 11/05/16 13:09 Urine WBC Clumps 2+ /HPF 09/07/16 02:47 Hyaline Casts 4 /LPF 09/07/16 02:47 Urine Mucus Few /HPF 10/07/16 18:30 Urine Yeast (Budding) 3+ /HPF 10/07/16 18:30 Urine Eosinophils None seen (None Seen) 09/07/16 16:00 Urine Total Volume 950 11/12/16 10:18 Urine Creatinine 19.7 mg/dL (0.1-20.0) 11/12/16 10:18 Height (in) 65.0 inches 11/12/16 10:18 Weight (lb) 181.0 lbs 11/12/16 10:18 Creatinine Clearance 5 11/12/16 10:18 Urine Sodium 36 mEq/L 09/16/16 19:19 Urine Total Protein 16 mg/dL (5-11.8) H 09/16/16 19:19 Fluid Type Pleural 01/13/17 12:10 Fluid Color Yellow 01/13/17 12:10 Fluid Appearance Hazy 01/13/17 12:10 Fluid WBC 182 /mm3 01/13/17 12:10 Fluid RBC 41 /mm3 01/13/17 12:10 Fluid Seg Neutrophils 85.0 % 01/13/17 12:10 Fluid Lymphocytes 8.0 % 01/13/17 12:10 Fluid Reactive Lymphs 0 % 01/13/17 12:10 Fluid Monocytes 6.0 % 01/13/17 12:10 Fluid Eosinophils 1.0 % 01/13/17 12:10 Fluid Basophils 0 % 01/13/17 12:10 Fluid Total Protein 3.0 (15.0-45.0) L 01/13/17 12:10 Fluid LDH 1322 01/13/17 12:10 Fluid Comment Diff performed 01/13/17 12:10 Vancomycin Trough 2.3 ug/mL (5.0-20.0) L 09/21/16 13:00 Random Vancomycin 16.5 ug/mL (0-40.0) 11/28/16 09:45 Urine Opiates Screen Presumptive negative 09/03/16 15:11 Urine Methadone Screen Presumptive positive 09/03/16 15:11 Ur Barbiturates Screen Presumptive positive 09/03/16 15:11 Ur Phencyclidine Scrn Presumptive negative 09/03/16 15:11 Ur Amphetamines Screen Presumptive negative 09/03/16 15:11 U Benzodiazepines Scrn Presumptive negative 09/03/16 15:11 Urine Cocaine Screen Presumptive negative 09/03/16 15:11 U Marijuana (THC) Screen Presumptive positive 09/03/16 15:11 Drugs of Abuse Note Disclamer 09/03/16 15:11 Rheumatoid Factor 24 IU/ml (0-13) H 09/08/16 11:48 SAHIL Screen Negative (Negative) 09/07/16 09:20 Proteinase 3 (PR3) Ab <1.0 AI (<1.0) 09/07/16 09:20 Myeloperoxidase Ab <1.0 AI (<1.0) 09/07/16 09:20 Sjogren's Antibody <1.0 AI (<1.0) 09/08/16 15:35 Scl-70 Scleroderma Ab <1.0 AI (<1.0) 09/08/16 15:35 Centromere B Antibody <1.0 AI (<1.0) 09/08/16 12:02 Heparin-induced Plt Ab Negative (Negative) 09/29/16 13:35 UF Heparin High Dose 11 % Release 09/29/16 13:35 SUDHIR UFH Low Dose 0.1 6 % Release 09/29/16 13:35 SUDHIR UFH Low Dose 0.5 8 % Release 09/29/16 13:35 Cardiolipid IgG Ab <14 GPL (<=14) 09/12/16 09:59 Cardiolipid IgA Ab <11 APL (<=11) 09/12/16 09:59 Cardiolipid IgM Ab <12 MPL (<=12) 09/12/16 09:59 Complement C3 148 mg/dL (90-180) 09/07/16 09:20 Complement C4 58 mg/dL (16-47) H 09/07/16 09:20 RPR Nonreactive (Nonreactive) 09/08/16 11:48 Hepatitis A IgM Ab Non-reactive (NonReactive) 09/24/16 14:40 Hep Bs Antigen Non-reactive (Negative) 09/24/16 14:40 Hep B Core IgM Ab Non-reactive (NonReactive) 09/24/16 14:40 Hepatitis C Antibody Non-reactive (NonReactive) 09/24/16 14:40 HIV 1&2 Antibody Rapid Non react (Non React) 09/08/16 11:48 HIV P24 Antigen Non react (Non React) 09/08/16 11:48 Miscellaneous Test Flexitest 1 H 01/09/17 18:45 Blood Type A POSITIVE 01/25/17 11:15 Antibody Screen Negative 01/25/17 11:15 DELORIS Antibody Screen Negative 11/24/16 11:20 Crossmatch See Detail 01/25/17 11:15
[2017-01-25] MEDS ORDERED: INTRALIPID 20% 250 ML IV SCH (20:00)
[2017-01-25] MEDS ORDERED: TPN ADULT IV SCH (20:00)
[2017-01-26] MEDS: LOPRESSOR PO SCH ×3 (01:21→17:13)
[2017-01-26] MEDS: HumuLIN R SUB-Q SCH ×5 (01:26→16:27)
[2017-01-26] MEDS: DUONEB *Not for PRN Use IH SCH ×4 (01:56→19:28)
[2017-01-26 04:40] LABS: Basophils # (Auto) 0.1 K/mm3 (0.0-0.1); Basophils % (Auto) 0.8 % (0.0-1.8); Eosinophils # (Auto) 0.1 K/mm3 (0.0-0.4); Eosinophils % (Auto) 0.6 % (0.0-4.3); Hematocrit 26.9 % (30.3-42.9); Lymphocytes # (Auto) 2.2 K/mm3 (1.2-5.4); Lymphocytes % (Auto) 16.5 % (13.4-35.0); Mean Corpuscular HGB Conc 33 % (30-34); Mean Corpuscular Hemoglobin 27 pg (28-32); Mean Corpuscular Volume 82 fl (79-97); Monocytes # (Auto) 1.2 K/mm3 (0.0-0.8); Platelet Count 305 K/mm3 (140-440); Red Blood Count 3.28 M/mm3 (3.65-5.03); Red Cell Distribution Width 17.2 % (13.2-15.2)
[2017-01-26 05:02] LABS: BUN/Creatinine Ratio 46; Blood Urea Nitrogen 51 mg/dL (7-17); Calcium 8.8 mg/dL (8.4-10.2); Hemolysis Index 12
[2017-01-26] MEDS: LASIX IV SCH ×3 (05:43→17:22)
[2017-01-26] MEDS: REGLAN IV SCH ×3 (05:44→22:07)
[2017-01-26] MEDS: APRESOLINE PO SCH ×4 (06:53→22:08)
--- NOTE | 2017-01-26 07:42 | XRay Report ---
PORTABLE CHEST INDICATION: Evaluate for chest tube. COMPARISON: Yesterday. FINDINGS: Portable, frontal chest radiograph, 4:26 PM, 01/25/2017 again demonstrates predominantly right mid to lower lung haziness with right hemidiaphragm again obscured. Subtle similar process though likely improved on the left with now better left hemidiaphragmatic visualization. Stable cardiomediastinal silhouette, tracheostomy tube as also left sided dual-lumen catheter and left upper extremity PICC tips about the cavoatrial junction or upper aspect of the right atrium. EKG leads. Intact bones. CONCLUSION: 1. Improving left lower lobe aeration while right mid to lower lung hazy opacity/layering effusion remains, as described. 2. Stable supporting devices. Thank you for the opportunity to participate in this patient's care.
--- NOTE | 2017-01-26 07:47 | XRay Report ---
PORTABLE CHEST INDICATION: Effusions. COMPARISON: 01/16/2017 FINDINGS: Portable, frontal chest radiograph again demonstrates predominantly right mid to lower lung haziness/layering pleural fluid. Hemidiaphragms remain obscured, though left lower lung haziness may be slightly improved radiographically. Grossly stable cardiomediastinal silhouette, esophagogastric tube as also left upper extremity PICC and dual lumen central catheter with their tips about the cavoatrial junction/upper aspect of the right atrium. New tracheostomy tube. EKG leads. Stable bones. CONCLUSION: 1. Interval tracheostomy and slight radiographic improvement in left lower lung haziness, as described. 2. Stable right lung haziness/layering pleural fluid and various other supporting devices, as described. Thank you for the opportunity to participate in this patient's care.
[2017-01-26] MEDS: HEPARIN SUB-Q SCH ×2 (10:21→22:07)
[2017-01-26] MEDS: PROTONIX FEEDTUBE SCH (10:21)
[2017-01-26] MEDS: ROBINUL PO SCH ×2 (10:21→22:07)
--- NOTE | 2017-01-26 10:57 | Progress Note ---
Assessment and Plan Assessment: 1) Recurrent SIRS: unclear source, fever better. 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 gastric perf (PEG placed on 09/20) +/- TPN +/- central lines -TTE 10/07 no vegetations -PICC exchanged on 10/03 -fully treated with micafungin for 14 days last day 10/13 4) History CA-UTI s/p gutierrez exchanged 5) Diarrhea - ? etiology ? antibiotic-induced, not better. 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 from GI bleed 13) Recent abdominal wall abscess at surgical site-treated 14 ) Recent Enterococcal bacteremia from PICC line infection. 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 -worsening -S/P debridement at bedside - new wound cx 01/24 +GNRs 16) Presumed VAP: sputum + MDR Pseudomonas / Proteus Plan: -continue meropenem total 4 weeks until 02/04 -f/u deep wound cx Thank you Dr Brown or your consultation, will follow up with you. Pauline Carias MD Infectious Diseases Specialist [facility] ([facility] M [phone] O [phone] Subjective Date of service: 01/26/17 Principal diagnosis: Acute resp failure on MVS; S/P Acute CVA; Acute Encephalopathy; JUANITA Interval history: Interval history: Alert, no fever, remains on the vent via trach + TPN Microbiology: Blood cultures: 09/13 neg / Silvia albicans 09/25 Silvia 09/29 neg 10/07 neg 11/05 neg 11/07 ngtd 10/3 E faecalis 1 of 4 bottles 11/25 neg 12/27 neg 01/09 ngtd Urine cultures: 09/10 neg 09/13 neg 8/ 10-100K mixed species 10/07 neg 11/05 VRE 11/07 mixed bacteria Respiratory cultures: 09/07 neg 09/13 neg 09/23 neg 11/07 MDR Pseudomonas 10 tracheal + VRE 01/09 Pseudomonas x 3 and Proteues Pleural effusion: ngtd Wound cultures: 10/17 abd wall wound purulence + Pseudomonas MDR 01/24 GNRs Stool cultures: cath tip 11/07 + LAB TECHNOLOGIST Current Antimicrobials: meropenem 01/08 Previous Antimicrobials: Zosyn 10/07 Vancomycin PO 10/01 Metronidazole 09/25 Micafungin 09/27-10/13 Meropenem 10/10 Vanco 10/17 zosyn 10/21 Cefepime 11/10 vancomyin 11/07 fluconazole 10/19 cefepime 10/29levaquin 11/05 vanco 11/23 Objective - Exam Narrative Exam: General appearance: somnolent non communicative, on the vent via trach in mild resp distress, no following commands Eyes: anicteric sclera, moist conjunctivae; PERRLA HENT: Atraumatic; oropharynx limited; Normal external ears. +NGT with greenish secretion Neck: +trach in place; supple, no thyromegaly or lymphadenopathy Lungs: brit coarse BS CV: rrr Abdomen: Soft, non-tender, +old PEG site no drainage. +iliostomy. Right sided Surgical site x 2 with ostomy bag draining small amount yellowish secretion Extremities: +peripheral edema Skin: sacral area wounds - per wound care STAGE 4 PRESSURE INJURY TO SACRAL MEASURES 7.5X6X2.5, WITH UNDERMINING FROM @9-1 OCLOCK-2.8CM-ULCER CLEANED WITH WOUND ASSISTANT PROFESSOR SURGICAL TECHNOLOGY-ULCER NEW - Sacrum wound measuring 9x11cm. Necrotic tissue noted on the wound edges and in the wound bed Psych: somnolent . Neuro: alert non verbal on the vent. Lines: PICC / gutierrez - Constitutional Vitals: Vital Signs Temp Pulse Resp BP Pulse Ox 99.4 F 109 H 19 97/58 99 01/26/17 08:00 01/26/17 08:38 01/26/17 08:38 01/26/17 08:22 01/26/17 08:22 Temperature -Last 24 Hours Temperature 99.4 F Temperature 98.6 F Temperature 98.8 F Temperature 98.6 F Temperature 98.6 F Temperature 97.5 F Temperature 98.8 F Temperature 98.6 F Temperature 98.8 F Temperature 97.5 F Temperature 98.9 F - Labs CBC & Chem 7: 01/26/17 04:20 01/26/17 04:20 Labs: Abnormal lab results 01/08/17 01/25/17 01/25/17 Range/Units 10:37 11:15 13:05 WBC (4.5-11.0) K/mm3 RBC (3.65-5.03) M/mm3 Hgb (10.1-14.3) gm/dl Hct (30.3-42.9) % MCH (28-32) pg RDW (13.2-15.2) % [place] % (Auto) (0.0-7.3) % [place] # (0.0-0.8) K/mm3 Seg Neutrophils % (40.0-70.0) % Seg Neutrophils # (1.8-7.7) K/mm3 BUN (7-17) mg/dL Glucose (65-100) mg/dL POC Glucose 128 H (70-105) Crossmatch See Detail See Detail 01/25/17 01/25/17 01/26/17 Range/Units 18:02 23:07 01:20 WBC (4.5-11.0) K/mm3 RBC (3.65-5.03) M/mm3 Hgb (10.1-14.3) gm/dl Hct (30.3-42.9) % MCH (28-32) pg RDW (13.2-15.2) % [place] % (Auto) (0.0-7.3) % [place] # (0.0-0.8) K/mm3 Seg Neutrophils % (40.0-70.0) % Seg Neutrophils # (1.8-7.7) K/mm3 BUN (7-17) mg/dL Glucose (65-100) mg/dL POC Glucose 120 H 123 H 112 H (70-105) Crossmatch 01/26/17 01/26/17 Range/Units 04:20 04:20 WBC 13.1 H (4.5-11.0) K/mm3 RBC 3.28 L (3.65-5.03) M/mm3 Hgb 9.0 L (10.1-14.3) gm/dl Hct 26.9 L D (30.3-42.9) % MCH 27 L (28-32) pg RDW 17.2 H (13.2-15.2) % [place] % (Auto) 9.0 H (0.0-7.3) % [place] # 1.2 H (0.0-0.8) K/mm3 Seg Neutrophils % 73.1 H (40.0-70.0) % Seg Neutrophils # 9.6 H (1.8-7.7) K/mm3 BUN 51 H (7-17) mg/dL Glucose 117 H (65-100) mg/dL POC Glucose (70-105) Crossmatch
--- NOTE | 2017-01-26 11:21 | Progress Note ---
Assessment and Plan Acute Hypoxemic Respiratory Failure (now with exacerbation and back on MVS) Hypertension (unable to receive p.o. meds) Atrial Fibrillation with RVR s/p tracheostomy Acute encephalopathy s/p CVA Oropharyngeal dysphagia Enterococcal bacteremia sepsis syndrome Sacral Decubitus Ulcer (s/p surgical debridement) Anemia Obesity JUANITA now on hemodialysis Enteric Fistula (spoke with her brother who states that he had a family discussion with her kids yesterday but they are not yet ready to give up on their mother) - continue to hold tube feeds due to persistent emesis; continue reglan at 5mg IV q6h - discussed PEG placement with surgeon to aid d/c planning to a intermediate project manager ventilator facility and will consult IR for G-J tube placement re: absorption issues / emesis - no indication for chest tube placement - continue fentanyl patch for pain issues especially s/p debridement - continue wound care per WCT and RN's (she is s/p surgical debridement) - continue anti-infectives per ID recs - prn CRP & lactate levels if clinically indicated (Follow WBC also) - keep on with daily PSV trials and / or T-piece as tolerated (Tolerated only 5 minutes today) - continue TPN administration - continue scopolamine for secretion control - continue to wean FiO2 for sats > 94% - continue bronchodilators and pulmonary toilet - VAP bundle addressed - continue prn IV metorolol - continue metoprolol and amlodipine (hold for hypotension) - continue to follow electrolytes and correct as necessary - continue GI & VTE prophylaxis - Continue flu & pneumovax per protocol - ethics consult placed and pending .....she remains critically ill on life sustaining interventions including MVS and at risk for further deterioration including ....38' CCT today without overlap ....care plan discussed at length during team rounds ...intermediate project manager prognosis remains guarded and this has intermittently been conveyed to family Subjective Date of service: 01/26/17 Principal diagnosis: Acute resp failure on MVS; S/P Acute CVA; Acute Encephalopathy; JUANITA Interval history: Patient is seen today for: Acute resp failure on MVS; S/P Acute CVA; Acute Encephalopathy; JUANITA Seen and examined at bedside; 24hour events reviewed; nursing and respiratory care staff consulted; no adverse overnight events reported to me; silvia remains critically ill and is still not tolerating weaning well; CXR reviewed; USS chest reviewed; no significant effusion that i believe chest tube placement is warranted for; AMS is persistent Objective Vital Signs - 12hr 01/25/17 01/25/17 01/25/17 23:30 23:42 23:45 Temperature 98.8 F Pulse Rate 113 H 118 H Pulse Rate [ Anterior Bilateral Throughout] Respiratory 29 H 31 H Rate Respiratory Rate [Anterior Bilateral Throughout] Blood Pressure 108/68 109/70 O2 Sat by Pulse 100 100 Oximetry O2 Sat by Pulse Oximetry [ Assessment] 01/26/17 01/26/17 01/26/17 00:00 00:15 00:30 Temperature Pulse Rate 114 H 111 H Pulse Rate [ Anterior Bilateral Throughout] Respiratory 29 H 29 H 30 H Rate Respiratory Rate [Anterior Bilateral Throughout] Blood Pressure 113/71 116/69 110/72 O2 Sat by Pulse 100 100 100 Oximetry O2 Sat by Pulse 100 Oximetry [ Assessment] 01/26/17 01/26/17 01/26/17 00:45 01:01 01:15 Temperature Pulse Rate 111 H 118 H 115 H Pulse Rate [ Anterior Bilateral Throughout] Respiratory 29 H 30 H 29 H Rate Respiratory Rate [Anterior Bilateral Throughout] Blood Pressure 106/74 110/77 119/71 O2 Sat by Pulse 100 100 100 Oximetry O2 Sat by Pulse Oximetry [ Assessment] 01/26/17 01/26/17 01/26/17 01:21 01:30 01:45 Temperature Pulse Rate 120 H 111 H 98 H Pulse Rate [ Anterior Bilateral Throughout] Respiratory 30 H 28 H Rate Respiratory Rate [Anterior Bilateral Throughout] Blood Pressure 119/71 123/81 110/62 O2 Sat by Pulse 100 100 Oximetry O2 Sat by Pulse Oximetry [ Assessment] 01/26/17 01/26/17 01/26/17 01:55 02:00 02:15 Temperature Pulse Rate 95 H 96 H Pulse Rate [ 95 H 100 H Anterior Bilateral Throughout] Respiratory 23 22 Rate Respiratory 24 23 Rate [Anterior Bilateral Throughout] Blood Pressure 110/71 109/70 O2 Sat by Pulse 100 100 Oximetry O2 Sat by Pulse Oximetry [ Assessment] 01/26/17 01/26/17 01/26/17 02:30 02:45 03:00 Temperature Pulse Rate 96 H 98 H 99 H Pulse Rate [ Anterior Bilateral Throughout] Respiratory 21 23 22 Rate Respiratory Rate [Anterior Bilateral Throughout] Blood Pressure 111/73 111/75 116/74 O2 Sat by Pulse 100 100 100 Oximetry O2 Sat by Pulse Oximetry [ Assessment] 01/26/17 01/26/17 01/26/17 03:15 03:30 03:45 Temperature Pulse Rate 97 H 99 H 104 H Pulse Rate [ Anterior Bilateral Throughout] Respiratory 22 22 18 Rate Respiratory Rate [Anterior Bilateral Throughout] Blood Pressure 113/74 114/64 116/73 O2 Sat by Pulse 100 99 100 Oximetry O2 Sat by Pulse Oximetry [ Assessment] 01/26/17 01/26/17 01/26/17 03:50 04:00 04:15 Temperature 98.6 F Pulse Rate 104 H 102 H 103 H Pulse Rate [ Anterior Bilateral Throughout] Respiratory 20 21 Rate Respiratory Rate [Anterior Bilateral Throughout] Blood Pressure 116/73 102/64 110/66 O2 Sat by Pulse 100 100 100 Oximetry O2 Sat by Pulse Oximetry [ Assessment] 01/26/17 01/26/17 01/26/17 04:30 04:45 05:00 Temperature Pulse Rate 101 H 101 H 104 H Pulse Rate [ Anterior Bilateral Throughout] Respiratory 18 18 20 Rate Respiratory Rate [Anterior Bilateral Throughout] Blood Pressure 115/64 107/60 116/67 O2 Sat by Pulse 99 99 99 Oximetry O2 Sat by Pulse Oximetry [ Assessment] 01/26/17 01/26/17 01/26/17 05:15 05:30 05:45 Temperature Pulse Rate 103 H 105 H 107 H Pulse Rate [ Anterior Bilateral Throughout] Respiratory 22 22 27 H Rate Respiratory Rate [Anterior Bilateral Throughout] Blood Pressure 112/65 106/68 118/69 O2 Sat by Pulse 99 100 99 Oximetry O2 Sat by Pulse Oximetry [ Assessment] 01/26/17 01/26/17 01/26/17 06:00 06:03 06:15 Temperature Pulse Rate 103 H 106 H 102 H Pulse Rate [ Anterior Bilateral Throughout] Respiratory 16 37 H 22 Rate Respiratory Rate [Anterior Bilateral Throughout] Blood Pressure 100/61 100/61 92/58 O2 Sat by Pulse 99 99 100 Oximetry O2 Sat by Pulse Oximetry [ Assessment] 01/26/17 01/26/17 01/26/17 06:31 06:45 06:53 Temperature Pulse Rate 113 H 107 H 98 H Pulse Rate [ Anterior Bilateral Throughout] Respiratory 27 H 27 H Rate Respiratory Rate [Anterior Bilateral Throughout] Blood Pressure 134/81 104/67 107/56 O2 Sat by Pulse 99 99 Oximetry O2 Sat by Pulse Oximetry [ Assessment] 01/26/17 01/26/17 01/26/17 08:00 08:22 08:38 Temperature 99.4 F Pulse Rate 105 H Pulse Rate [ 103 H 109 H Anterior Bilateral Throughout] Respiratory Rate Respiratory 19 19 Rate [Anterior Bilateral Throughout] Blood Pressure 97/58 O2 Sat by Pulse 99 Oximetry O2 Sat by Pulse Oximetry [ Assessment] Constitutional: appears uncomfortable, other (not tracking) Eyes: non-icteric, other (tracheostomy tube in midline of neck) ENT: oropharynx moist, oropharyngeal exudate pre Neck: supple, no lymphadenopathy, no JVD, other (no thyromegaly) Effort: mildly labored Ascultation: Bilateral: diminished breath sounds (right base), rhonchi (and referred upper airway sounds) Percussion: Right: dull (base) Cardiovascular: regular rate and rhythm, other (no rubs / murmurs) Gastrointestinal: hypoactive bowel sounds, soft, non-tender, non-distended, other (RLQ & LUQ stomas with colostomy bags) Integumentary: decubitus ulcer (sacral; stage 4 s/p surgical debridement), other (no rash; no cellulitis; poor turgor) Extremities: no cyanosis, pulses normal, no ischemia or petechiae, edema (1+ bilaterally) Neurologic: pupils equal and round, unable to assess, other (encephalopathic) Psychiatric: other (unable to assess) CBC and BMP: 01/26/17 04:20 01/27/17 04:00 ABG, PT/INR, D-dimer: ABG POC ABG pH 7.436 (7.35-7.45) 01/20/17 12: ABG pH 7.450 pH Units (7.350-7.450) 12/05/16 Unknown POC ABG pCO2 35.3 (35-45) 01/20/17 12: ABG pCO2 29.6 mm Hg 12/05/16 Unknown POC ABG pO2 70 (80-105) L 01/20/17 12: ABG pO2 75.2 mm Hg (80.0-90.0) L 12/05/16 Unknown POC ABG HCO3 23.8 01/20/17 12: POC ABG Total CO2 25 01/20/17 12:17 POC ABG O2 Sat 94 12/01/17 12:17 ABG O2 Saturation 96.8 % (95.0-99.0) 12/05/16 Unknown PT/INR, D-dimer PT 15.4 Sec. (12.2-14.9) H 01/13/17 15:50 INR 1.16 (0.87-1.13) H 01/13/17 15:50 Abnormal lab findings: Abnormal Labs 09/03/16 09/03/16 09/03/16 00:03 00:10 00:10 WBC 13.9 H RBC 5.95 H Hgb Hct 44.0 H MCV 74 L MCH 22 L MCHC RDW 17.5 H Plt Count Lymph % (Auto) [place] % (Auto) Lymph # [place] # Baso # Seg Neutrophils % Seg Neuts % (Manual) Lymphocytes % (Manual) 54.0 H Monocytes % (Manual) Eosinophils % (Manual) Basophils % (Manual) Nucleated RBC % Seg Neutrophils # Seg Neutrophils # Man Lymphocytes # (Manual) 7.5 H Monocytes # (Manual) Eosinophils # (Manual) Basophils # (Manual) PT INR Fibrinogen dRVVT Confirm Interp Factor V Activity POC ABG pH POC ABG pCO2 POC ABG pO2 ABG pO2 ABG HCO3 ABG Base Excess ABG Hemoglobin Oxyhemoglobin Sodium Potassium 2.8 L* Chloride Carbon Dioxide 21 L BUN Creatinine 1.7 H Glucose 159 H POC Glucose 177 H Lactic Acid Calcium Phosphorus Magnesium Direct Bilirubin AST ALT Alkaline Phosphatase Lactate Dehydrogenase Troponin T C-Reactive Protein Total Protein Albumin Prealbumin Triglycerides Cholesterol LDL Cholesterol Direct HDL Cholesterol Urine pH Urine WBC (Auto) Urine Creatinine Urine Total Protein Fluid Total Protein Vancomycin Trough Rheumatoid Factor Complement C4 Miscellaneous Test Crossmatch 09/03/16 09/03/16 09/03/16 12:12 15:07 16:20 WBC RBC Hgb Hct MCV MCH MCHC RDW Plt Count Lymph % (Auto) [place] % (Auto) Lymph # [place] # Baso # Seg Neutrophils % Seg Neuts % (Manual) Lymphocytes % (Manual) Monocytes % (Manual) Eosinophils % (Manual) Basophils % (Manual) Nucleated RBC % Seg Neutrophils # Seg Neutrophils # Man Lymphocytes # (Manual) Monocytes # (Manual) Eosinophils # (Manual) Basophils # (Manual) PT INR Fibrinogen dRVVT Confirm Interp Factor V Activity POC ABG pH 7.452 H POC ABG pCO2 POC ABG pO2 ABG pO2 ABG HCO3 ABG Base Excess ABG Hemoglobin Oxyhemoglobin Sodium Potassium Chloride Carbon Dioxide BUN Creatinine Glucose POC Glucose 178 H Lactic Acid Calcium Phosphorus 2.20 L Magnesium 1.60 L Direct Bilirubin AST ALT Alkaline Phosphatase Lactate Dehydrogenase Troponin T C-Reactive Protein Total Protein Albumin Prealbumin Triglycerides Cholesterol LDL Cholesterol Direct HDL Cholesterol Urine pH Urine WBC (Auto) Urine Creatinine Urine Total Protein Fluid Total Protein Vancomycin Trough Rheumatoid Factor Complement C4 Miscellaneous Test Crossmatch 09/03/16 09/03/16 09/03/16 17:57 17:58 23:50 WBC RBC Hgb Hct MCV MCH MCHC RDW Plt Count Lymph % (Auto) [place] % (Auto) Lymph # [place] # Baso # Seg Neutrophils % Seg Neuts % (Manual) Lymphocytes % (Manual) Monocytes % (Manual) Eosinophils % (Manual) Basophils % (Manual) Nucleated RBC % Seg Neutrophils # Seg Neutrophils # Man Lymphocytes # (Manual) Monocytes # (Manual) Eosinophils # (Manual) Basophils # (Manual) PT INR Fibrinogen dRVVT Confirm Interp Factor V Activity POC ABG pH POC ABG pCO2 POC ABG pO2 ABG pO2 ABG HCO3 ABG Base Excess ABG Hemoglobin Oxyhemoglobin Sodium Potassium Chloride Carbon Dioxide BUN Creatinine Glucose POC Glucose 162 H 145 H Lactic Acid Calcium Phosphorus 2.30 L Magnesium Direct Bilirubin AST ALT Alkaline Phosphatase Lactate Dehydrogenase Troponin T C-Reactive Protein Total Protein Albumin Prealbumin Triglycerides Cholesterol LDL Cholesterol Direct HDL Cholesterol Urine pH Urine WBC (Auto) Urine Creatinine Urine Total Protein Fluid Total Protein Vancomycin Trough Rheumatoid Factor Complement C4 Miscellaneous Test Crossmatch 09/04/16 09/04/16 09/04/16 03:31 03:31 05:42 WBC RBC Hgb 9.7 L D Hct MCV 72 L MCH 23 L MCHC RDW 17.5 H Plt Count Lymph % (Auto) 11.1 L [place] % (Auto) Lymph # [place] # Baso # Seg Neutrophils % 84.3 H Seg Neuts % (Manual) Lymphocytes % (Manual) Monocytes % (Manual) Eosinophils % (Manual) Basophils % (Manual) Nucleated RBC % Seg Neutrophils # 8.9 H Seg Neutrophils # Man Lymphocytes # (Manual) Monocytes # (Manual) Eosinophils # (Manual) Basophils # (Manual) PT INR Fibrinogen dRVVT Confirm Interp Factor V Activity POC ABG pH POC ABG pCO2 POC ABG pO2 ABG pO2 ABG HCO3 ABG Base Excess ABG Hemoglobin Oxyhemoglobin Sodium 135 L Potassium 2.9 L* Chloride 97.2 L Carbon Dioxide 19 L BUN Creatinine 1.7 H Glucose 170 H POC Glucose 152 H Lactic Acid Calcium Phosphorus Magnesium Direct Bilirubin AST ALT Alkaline Phosphatase Lactate Dehydrogenase Troponin T C-Reactive Protein Total Protein Albumin Prealbumin Triglycerides 160 H Cholesterol LDL Cholesterol Direct HDL Cholesterol 31 L Urine pH Urine WBC (Auto) Urine Creatinine Urine Total Protein Fluid Total Protein Vancomycin Trough Rheumatoid Factor Complement C4 Miscellaneous Test Crossmatch 09/04/16 09/04/16 09/04/16 11:34 17:46 23:29 WBC RBC Hgb Hct MCV MCH MCHC RDW Plt Count Lymph % (Auto) [place] % (Auto) Lymph # [place] # Baso # Seg Neutrophils % Seg Neuts % (Manual) Lymphocytes % (Manual) Monocytes % (Manual) Eosinophils % (Manual) Basophils % (Manual) Nucleated RBC % Seg Neutrophils # Seg Neutrophils # Man Lymphocytes # (Manual) Monocytes # (Manual) Eosinophils # (Manual) Basophils # (Manual) PT INR Fibrinogen dRVVT Confirm Interp Factor V Activity POC ABG pH POC ABG pCO2 POC ABG pO2 ABG pO2 ABG HCO3 ABG Base Excess ABG Hemoglobin Oxyhemoglobin Sodium Potassium Chloride Carbon Dioxide BUN Creatinine Glucose POC Glucose 165 H 210 H 139 H Lactic Acid Calcium Phosphorus Magnesium Direct Bilirubin AST ALT Alkaline Phosphatase Lactate Dehydrogenase Troponin T C-Reactive Protein Total Protein Albumin Prealbumin Triglycerides Cholesterol LDL Cholesterol Direct HDL Cholesterol Urine pH Urine WBC (Auto) Urine Creatinine Urine Total Protein Fluid Total Protein Vancomycin Trough Rheumatoid Factor Complement C4 Miscellaneous Test Crossmatch 09/05/16 09/05/16 09/05/16 04:05 04:05 05:38 WBC RBC Hgb Hct MCV 76 L D MCH 23 L MCHC RDW 17.8 H Plt Count Lymph % (Auto) [place] % (Auto) Lymph # [place] # Baso # Seg Neutrophils % Seg Neuts % (Manual) Lymphocytes % (Manual) Monocytes % (Manual) Eosinophils % (Manual) Basophils % (Manual) Nucleated RBC % Seg Neutrophils # Seg Neutrophils # Man Lymphocytes # (Manual) Monocytes # (Manual) Eosinophils # (Manual) Basophils # (Manual) PT INR Fibrinogen dRVVT Confirm Interp Factor V Activity POC ABG pH POC ABG pCO2 POC ABG pO2 ABG pO2 ABG HCO3 ABG Base Excess ABG Hemoglobin Oxyhemoglobin Sodium 134 L Potassium Chloride Carbon Dioxide 18 L BUN Creatinine 1.8 H Glucose 192 H POC Glucose 175 H Lactic Acid Calcium Phosphorus Magnesium Direct Bilirubin AST ALT Alkaline Phosphatase Lactate Dehydrogenase Troponin T C-Reactive Protein Total Protein Albumin Prealbumin Triglycerides Cholesterol LDL Cholesterol Direct HDL Cholesterol Urine pH Urine WBC (Auto) Urine Creatinine Urine Total Protein Fluid Total Protein Vancomycin Trough Rheumatoid Factor Complement C4 Miscellaneous Test Crossmatch 09/05/16 09/05/16 09/05/16 11:38 17:48 23:22 WBC RBC Hgb Hct MCV MCH MCHC RDW Plt Count Lymph % (Auto) [place] % (Auto) Lymph # [place] # Baso # Seg Neutrophils % Seg Neuts % (Manual) Lymphocytes % (Manual) Monocytes % (Manual) Eosinophils % (Manual) Basophils % (Manual) Nucleated RBC % Seg Neutrophils # Seg Neutrophils # Man Lymphocytes # (Manual) Monocytes # (Manual) Eosinophils # (Manual) Basophils # (Manual) PT INR Fibrinogen dRVVT Confirm Interp Factor V Activity POC ABG pH POC ABG pCO2 POC ABG pO2 ABG pO2 ABG HCO3 ABG Base Excess ABG Hemoglobin Oxyhemoglobin Sodium Potassium Chloride Carbon Dioxide BUN Creatinine Glucose POC Glucose 164 H 186 H 195 H Lactic Acid Calcium Phosphorus Magnesium Direct Bilirubin AST ALT Alkaline Phosphatase Lactate Dehydrogenase Troponin T C-Reactive Protein Total Protein Albumin Prealbumin Triglycerides Cholesterol LDL Cholesterol Direct HDL Cholesterol Urine pH Urine WBC (Auto) Urine Creatinine Urine Total Protein Fluid Total Protein Vancomycin Trough Rheumatoid Factor Complement C4 Miscellaneous Test Crossmatch 09/06/16 09/06/16 09/06/16 04:12 05:59 07:32 WBC RBC Hgb Hct MCV MCH MCHC RDW Plt Count Lymph % (Auto) [place] % (Auto) Lymph # [place] # Baso # Seg Neutrophils % Seg Neuts % (Manual) Lymphocytes % (Manual) Monocytes % (Manual) Eosinophils % (Manual) Basophils % (Manual) Nucleated RBC % Seg Neutrophils # Seg Neutrophils # Man Lymphocytes # (Manual) Monocytes # (Manual) Eosinophils # (Manual) Basophils # (Manual) PT INR Fibrinogen dRVVT Confirm Interp Factor V Activity POC ABG pH 7.514 H POC ABG pCO2 29.1 L POC ABG pO2 72 L ABG pO2 ABG HCO3 ABG Base Excess ABG Hemoglobin Oxyhemoglobin Sodium 133 L Potassium 3.4 L Chloride 94.9 L Carbon Dioxide 19 L BUN 30 H Creatinine 2.1 H Glucose 139 H POC Glucose 146 H Lactic Acid Calcium Phosphorus Magnesium Direct Bilirubin AST ALT Alkaline Phosphatase Lactate Dehydrogenase Troponin T C-Reactive Protein Total Protein Albumin Prealbumin Triglycerides Cholesterol LDL Cholesterol Direct HDL Cholesterol Urine pH Urine WBC (Auto) Urine Creatinine Urine Total Protein Fluid Total Protein Vancomycin Trough Rheumatoid Factor Complement C4 Miscellaneous Test Crossmatch 09/06/16 09/06/16 09/06/16 11:57 17:58 19:02 WBC RBC Hgb Hct MCV MCH MCHC RDW Plt Count Lymph % (Auto) [place] % (Auto) Lymph # [place] # Baso # Seg Neutrophils % Seg Neuts % (Manual) Lymphocytes % (Manual) Monocytes % (Manual) Eosinophils % (Manual) Basophils % (Manual) Nucleated RBC % Seg Neutrophils # Seg Neutrophils # Man Lymphocytes # (Manual) Monocytes # (Manual) Eosinophils # (Manual) Basophils # (Manual) PT INR Fibrinogen dRVVT Confirm Interp Factor V Activity POC ABG pH 7.465 H POC ABG pCO2 32.0 L POC ABG pO2 ABG pO2 ABG HCO3 ABG Base Excess ABG Hemoglobin Oxyhemoglobin Sodium Potassium Chloride Carbon Dioxide BUN Creatinine Glucose POC Glucose 165 H 160 H Lactic Acid Calcium Phosphorus Magnesium Direct Bilirubin AST ALT Alkaline Phosphatase Lactate Dehydrogenase Troponin T C-Reactive Protein Total Protein Albumin Prealbumin Triglycerides Cholesterol LDL Cholesterol Direct HDL Cholesterol Urine pH Urine WBC (Auto) Urine Creatinine Urine Total Protein Fluid Total Protein Vancomycin Trough Rheumatoid Factor Complement C4 Miscellaneous Test Crossmatch 09/06/16 09/07/16 09/07/16 23:45 02:47 02:47 WBC RBC Hgb Hct MCV MCH MCHC RDW Plt Count Lymph % (Auto) [place] % (Auto) Lymph # [place] # Baso # Seg Neutrophils % Seg Neuts % (Manual) Lymphocytes % (Manual) Monocytes % (Manual) Eosinophils % (Manual) Basophils % (Manual) Nucleated RBC % Seg Neutrophils # Seg Neutrophils # Man Lymphocytes # (Manual) Monocytes # (Manual) Eosinophils # (Manual) Basophils # (Manual) PT INR Fibrinogen dRVVT Confirm Interp Factor V Activity POC ABG pH POC ABG pCO2 POC ABG pO2 ABG pO2 ABG HCO3 ABG Base Excess ABG Hemoglobin Oxyhemoglobin Sodium Potassium Chloride Carbon Dioxide BUN Creatinine Glucose POC Glucose 204 H Lactic Acid Calcium Phosphorus Magnesium Direct Bilirubin AST ALT Alkaline Phosphatase Lactate Dehydrogenase Troponin T C-Reactive Protein Total Protein Albumin Prealbumin Triglycerides Cholesterol LDL Cholesterol Direct HDL Cholesterol Urine pH Urine WBC (Auto) 68.0 H Urine Creatinine 106.1 H Urine Total Protein Fluid Total Protein Vancomycin Trough Rheumatoid Factor Complement C4 Miscellaneous Test Crossmatch 09/07/16 09/07/16 09/07/16 04:50 06:19 06:39 WBC RBC Hgb Hct MCV MCH MCHC RDW Plt Count Lymph % (Auto) [place] % (Auto) Lymph # [place] # Baso # Seg Neutrophils % Seg Neuts % (Manual) Lymphocytes % (Manual) Monocytes % (Manual) Eosinophils % (Manual) Basophils % (Manual) Nucleated RBC % Seg Neutrophils # Seg Neutrophils # Man Lymphocytes # (Manual) Monocytes # (Manual) Eosinophils # (Manual) Basophils # (Manual) PT INR Fibrinogen dRVVT Confirm Interp Factor V Activity POC ABG pH 7.457 H POC ABG pCO2 32.1 L POC ABG pO2 76 L ABG pO2 ABG HCO3 ABG Base Excess ABG Hemoglobin Oxyhemoglobin Sodium 132 L Potassium Chloride 94.7 L Carbon Dioxide BUN 53 H Creatinine 2.9 H Glucose 151 H POC Glucose 149 H Lactic Acid Calcium Phosphorus Magnesium Direct Bilirubin AST ALT Alkaline Phosphatase Lactate Dehydrogenase Troponin T C-Reactive Protein Total Protein Albumin Prealbumin Triglycerides Cholesterol LDL Cholesterol Direct HDL Cholesterol Urine pH Urine WBC (Auto) Urine Creatinine Urine Total Protein Fluid Total Protein Vancomycin Trough Rheumatoid Factor Complement C4 Miscellaneous Test Crossmatch 09/07/16 09/07/16 09/07/16 09:20 11:43 11:43 WBC 19.4 H RBC Hgb 8.3 L Hct 26.4 L D MCV 72 L D MCH 22 L MCHC RDW 17.9 H Plt Count Lymph % (Auto) 8.5 L [place] % (Auto) Lymph # [place] # 1.0 H Baso # Seg Neutrophils % 85.8 H Seg Neuts % (Manual) Lymphocytes % (Manual) Monocytes % (Manual) Eosinophils % (Manual) Basophils % (Manual) Nucleated RBC % Seg Neutrophils # 16.6 H Seg Neutrophils # Man Lymphocytes # (Manual) Monocytes # (Manual) Eosinophils # (Manual) Basophils # (Manual) PT INR Fibrinogen dRVVT Confirm Interp Factor V Activity POC ABG pH POC ABG pCO2 POC ABG pO2 ABG pO2 ABG HCO3 ABG Base Excess ABG Hemoglobin Oxyhemoglobin Sodium 134 L Potassium Chloride 97.2 L Carbon Dioxide 20 L BUN 58 H Creatinine 2.9 H Glucose 147 H POC Glucose Lactic Acid Calcium Phosphorus 2.40 L Magnesium 2.40 H Direct Bilirubin AST ALT Alkaline Phosphatase Lactate Dehydrogenase Troponin T C-Reactive Protein Total Protein 5.8 L Albumin 2.2 L Prealbumin Triglycerides Cholesterol LDL Cholesterol Direct HDL Cholesterol Urine pH Urine WBC (Auto) Urine Creatinine Urine Total Protein Fluid Total Protein Vancomycin Trough Rheumatoid Factor Complement C4 58 H Miscellaneous Test Crossmatch 09/07/16 09/07/16 09/07/16 11:50 16:00 17:31 WBC RBC Hgb Hct MCV MCH MCHC RDW Plt Count Lymph % (Auto) [place] % (Auto) Lymph # [place] # Baso # Seg Neutrophils % Seg Neuts % (Manual) Lymphocytes % (Manual) Monocytes % (Manual) Eosinophils % (Manual) Basophils % (Manual) Nucleated RBC % Seg Neutrophils # Seg Neutrophils # Man Lymphocytes # (Manual) Monocytes # (Manual) Eosinophils # (Manual) Basophils # (Manual) PT INR Fibrinogen dRVVT Confirm Interp Factor V Activity POC ABG pH POC ABG pCO2 POC ABG pO2 158 H ABG pO2 ABG HCO3 ABG Base Excess ABG Hemoglobin Oxyhemoglobin Sodium Potassium Chloride Carbon Dioxide BUN Creatinine Glucose POC Glucose 175 H Lactic Acid Calcium Phosphorus Magnesium Direct Bilirubin AST ALT Alkaline Phosphatase Lactate Dehydrogenase Troponin T C-Reactive Protein Total Protein Albumin Prealbumin Triglycerides Cholesterol LDL Cholesterol Direct HDL Cholesterol Urine pH Urine WBC (Auto) Urine Creatinine 66.3 H Urine Total Protein Fluid Total Protein Vancomycin Trough Rheumatoid Factor Complement C4 Miscellaneous Test Crossmatch 09/07/16 09/08/16 09/08/16 23:50 05:46 06:18 WBC 17.8 H RBC 3.58 L Hgb 8.1 L Hct 25.5 L MCV 71 L MCH 23 L MCHC RDW 18.4 H Plt Count Lymph % (Auto) [place] % (Auto) Lymph # [place] # Baso # Seg Neutrophils % Seg Neuts % (Manual) 92.0 H Lymphocytes % (Manual) 6.0 L Monocytes % (Manual) Eosinophils % (Manual) Basophils % (Manual) Nucleated RBC % Seg Neutrophils # Seg Neutrophils # Man 16.4 H Lymphocytes # (Manual) 1.1 L Monocytes # (Manual) Eosinophils # (Manual) Basophils # (Manual) PT INR Fibrinogen dRVVT Confirm Interp Factor V Activity POC ABG pH POC ABG pCO2 34.3 L POC ABG pO2 71 L ABG pO2 ABG HCO3 ABG Base Excess ABG Hemoglobin Oxyhemoglobin Sodium Potassium Chloride Carbon Dioxide BUN Creatinine Glucose POC Glucose 216 H Lactic Acid Calcium Phosphorus Magnesium Direct Bilirubin AST ALT Alkaline Phosphatase Lactate Dehydrogenase Troponin T C-Reactive Protein Total Protein Albumin Prealbumin Triglycerides Cholesterol LDL Cholesterol Direct HDL Cholesterol Urine pH Urine WBC (Auto) Urine Creatinine Urine Total Protein Fluid Total Protein Vancomycin Trough Rheumatoid Factor Complement C4 Miscellaneous Test Crossmatch 09/08/16 09/08/16 09/08/16 06:18 06:51 10:55 WBC RBC Hgb Hct MCV MCH MCHC RDW Plt Count Lymph % (Auto) [place] % (Auto) Lymph # [place] # Baso # Seg Neutrophils % Seg Neuts % (Manual) Lymphocytes % (Manual) Monocytes % (Manual) Eosinophils % (Manual) Basophils % (Manual) Nucleated RBC % Seg Neutrophils # Seg Neutrophils # Man Lymphocytes # (Manual) Monocytes # (Manual) Eosinophils # (Manual) Basophils # (Manual) PT INR Fibrinogen dRVVT Confirm Interp Factor V Activity POC ABG pH POC ABG pCO2 POC ABG pO2 ABG pO2 ABG HCO3 ABG Base Excess ABG Hemoglobin Oxyhemoglobin Sodium 133 L Potassium Chloride 96.9 L Carbon Dioxide 20 L BUN 63 H Creatinine 2.7 H Glucose 195 H POC Glucose 204 H 169 H Lactic Acid Calcium Phosphorus Magnesium Direct Bilirubin AST ALT Alkaline Phosphatase Lactate Dehydrogenase Troponin T C-Reactive Protein Total Protein Albumin Prealbumin Triglycerides Cholesterol LDL Cholesterol Direct HDL Cholesterol Urine pH Urine WBC (Auto) Urine Creatinine Urine Total Protein Fluid Total Protein Vancomycin Trough Rheumatoid Factor Complement C4 Miscellaneous Test Crossmatch 09/08/16 09/08/16 09/08/16 11:48 11:48 11:48 WBC RBC Hgb Hct MCV MCH MCHC RDW Plt Count Lymph % (Auto) [place] % (Auto) Lymph # [place] # Baso # Seg Neutrophils % Seg Neuts % (Manual) Lymphocytes % (Manual) Monocytes % (Manual) Eosinophils % (Manual) Basophils % (Manual) Nucleated RBC % Seg Neutrophils # Seg Neutrophils # Man Lymphocytes # (Manual) Monocytes # (Manual) Eosinophils # (Manual) Basophils # (Manual) PT INR Fibrinogen 750 H dRVVT Confirm Interp Factor V Activity POC ABG pH POC ABG pCO2 POC ABG pO2 ABG pO2 ABG HCO3 ABG Base Excess ABG Hemoglobin Oxyhemoglobin Sodium Potassium Chloride Carbon Dioxide BUN Creatinine Glucose POC Glucose Lactic Acid Calcium Phosphorus Magnesium Direct Bilirubin AST ALT Alkaline Phosphatase Lactate Dehydrogenase Troponin T C-Reactive Protein 15.70 H Total Protein Albumin Prealbumin Triglycerides Cholesterol LDL Cholesterol Direct HDL Cholesterol Urine pH Urine WBC (Auto) Urine Creatinine Urine Total Protein Fluid Total Protein Vancomycin Trough Rheumatoid Factor 24 H Complement C4 Miscellaneous Test Crossmatch 09/08/16 09/08/16 09/09/16 15:35 18:25 00:24 WBC RBC Hgb Hct MCV MCH MCHC RDW Plt Count Lymph % (Auto) [place] % (Auto) Lymph # [place] # Baso # Seg Neutrophils % Seg Neuts % (Manual) Lymphocytes % (Manual) Monocytes % (Manual) Eosinophils % (Manual) Basophils % (Manual) Nucleated RBC % Seg Neutrophils # Seg Neutrophils # Man Lymphocytes # (Manual) Monocytes # (Manual) Eosinophils # (Manual) Basophils # (Manual) PT INR Fibrinogen dRVVT Confirm Interp Factor V Activity 182 H POC ABG pH POC ABG pCO2 POC ABG pO2 ABG pO2 ABG HCO3 ABG Base Excess ABG Hemoglobin Oxyhemoglobin Sodium Potassium Chloride Carbon Dioxide BUN Creatinine Glucose POC Glucose 184 H 216 H Lactic Acid Calcium Phosphorus Magnesium Direct Bilirubin AST ALT Alkaline Phosphatase Lactate Dehydrogenase Troponin T C-Reactive Protein Total Protein Albumin Prealbumin Triglycerides Cholesterol LDL Cholesterol Direct HDL Cholesterol Urine pH Urine WBC (Auto) Urine Creatinine Urine Total Protein Fluid Total Protein Vancomycin Trough Rheumatoid Factor Complement C4 Miscellaneous Test Crossmatch 09/09/16 09/09/16 09/09/16 03:00 03:00 04:04 WBC 27.9 H RBC Hgb 8.7 L Hct 28.1 L MCV 72 L MCH 22 L MCHC RDW 18.4 H Plt Count 485 H Lymph % (Auto) [place] % (Auto) Lymph # [place] # Baso # Seg Neutrophils % Seg Neuts % (Manual) 77.0 H Lymphocytes % (Manual) 9.0 L Monocytes % (Manual) Eosinophils % (Manual) Basophils % (Manual) Nucleated RBC % Seg Neutrophils # Seg Neutrophils # Man 21.5 H Lymphocytes # (Manual) Monocytes # (Manual) 2.0 H Eosinophils # (Manual) Basophils # (Manual) PT INR Fibrinogen dRVVT Confirm Interp Factor V Activity POC ABG pH POC ABG pCO2 POC ABG pO2 121 H ABG pO2 ABG HCO3 ABG Base Excess ABG Hemoglobin Oxyhemoglobin Sodium 135 L Potassium Chloride 96.3 L Carbon Dioxide 21 L BUN 83 H Creatinine 3.0 H Glucose 135 H POC Glucose Lactic Acid Calcium Phosphorus Magnesium Direct Bilirubin AST ALT Alkaline Phosphatase Lactate Dehydrogenase Troponin T C-Reactive Protein Total Protein Albumin Prealbumin Triglycerides Cholesterol LDL Cholesterol Direct HDL Cholesterol Urine pH Urine WBC (Auto) Urine Creatinine Urine Total Protein Fluid Total Protein Vancomycin Trough Rheumatoid Factor Complement C4 Miscellaneous Test Crossmatch 09/09/16 09/09/16 09/09/16 05:41 11:55 14:13 WBC RBC Hgb Hct MCV MCH MCHC RDW Plt Count Lymph % (Auto) [place] % (Auto) Lymph # [place] # Baso # Seg Neutrophils % Seg Neuts % (Manual) Lymphocytes % (Manual) Monocytes % (Manual) Eosinophils % (Manual) Basophils % (Manual) Nucleated RBC % Seg Neutrophils # Seg Neutrophils # Man Lymphocytes # (Manual) Monocytes # (Manual) Eosinophils # (Manual) Basophils # (Manual) PT INR Fibrinogen dRVVT Confirm Interp Factor V Activity POC ABG pH POC ABG pCO2 POC ABG pO2 ABG pO2 ABG HCO3 ABG Base Excess ABG Hemoglobin Oxyhemoglobin Sodium Potassium Chloride Carbon Dioxide BUN Creatinine Glucose POC Glucose 155 H 186 H Lactic Acid Calcium Phosphorus Magnesium Direct Bilirubin AST ALT Alkaline Phosphatase Lactate Dehydrogenase Troponin T C-Reactive Protein Total Protein Albumin Prealbumin Triglycerides Cholesterol LDL Cholesterol Direct HDL Cholesterol Urine pH Urine WBC (Auto) 25.0 H Urine Creatinine Urine Total Protein Fluid Total Protein Vancomycin Trough Rheumatoid Factor Complement C4 Miscellaneous Test Crossmatch 09/09/16 09/09/16 09/10/16 17:33 23:13 05:09 WBC RBC Hgb Hct MCV MCH MCHC RDW Plt Count Lymph % (Auto) [place] % (Auto) Lymph # [place] # Baso # Seg Neutrophils % Seg Neuts % (Manual) Lymphocytes % (Manual) Monocytes % (Manual) Eosinophils % (Manual) Basophils % (Manual) Nucleated RBC % Seg Neutrophils # Seg Neutrophils # Man Lymphocytes # (Manual) Monocytes # (Manual) Eosinophils # (Manual) Basophils # (Manual) PT INR Fibrinogen dRVVT Confirm Interp Factor V Activity POC ABG pH POC ABG pCO2 POC ABG pO2 74 L ABG pO2 ABG HCO3 ABG Base Excess ABG Hemoglobin Oxyhemoglobin Sodium Potassium Chloride Carbon Dioxide BUN Creatinine Glucose POC Glucose 211 H 215 H Lactic Acid Calcium Phosphorus Magnesium Direct Bilirubin AST ALT Alkaline Phosphatase Lactate Dehydrogenase Troponin T C-Reactive Protein Total Protein Albumin Prealbumin Triglycerides Cholesterol LDL Cholesterol Direct HDL Cholesterol Urine pH Urine WBC (Auto) Urine Creatinine Urine Total Protein Fluid Total Protein Vancomycin Trough Rheumatoid Factor Complement C4 Miscellaneous Test Crossmatch 09/10/16 09/10/16 09/10/16 05:17 05:17 11:31 WBC 15.8 H RBC 3.25 L Hgb 7.3 L Hct 22.9 L MCV 71 L MCH 23 L MCHC RDW 18.4 H Plt Count Lymph % (Auto) [place] % (Auto) Lymph # [place] # Baso # Seg Neutrophils % Seg Neuts % (Manual) 91.0 H Lymphocytes % (Manual) 4.0 L Monocytes % (Manual) Eosinophils % (Manual) Basophils % (Manual) Nucleated RBC % Seg Neutrophils # Seg Neutrophils # Man 14.4 H Lymphocytes # (Manual) 0.6 L Monocytes # (Manual) Eosinophils # (Manual) Basophils # (Manual) PT INR Fibrinogen dRVVT Confirm Interp Factor V Activity POC ABG pH POC ABG pCO2 POC ABG pO2 ABG pO2 ABG HCO3 ABG Base Excess ABG Hemoglobin Oxyhemoglobin Sodium Potassium Chloride Carbon Dioxide 21 L BUN 93 H Creatinine 2.9 H Glucose 146 H POC Glucose 188 H Lactic Acid Calcium 8.1 L Phosphorus Magnesium Direct Bilirubin AST ALT Alkaline Phosphatase Lactate Dehydrogenase Troponin T C-Reactive Protein Total Protein Albumin Prealbumin Triglycerides Cholesterol LDL Cholesterol Direct HDL Cholesterol Urine pH Urine WBC (Auto) Urine Creatinine Urine Total Protein Fluid Total Protein Vancomycin Trough Rheumatoid Factor Complement C4 Miscellaneous Test Crossmatch 09/10/16 09/10/16 09/10/16 13:17 17:20 23:32 WBC RBC Hgb Hct MCV MCH MCHC RDW Plt Count Lymph % (Auto) [place] % (Auto) Lymph # [place] # Baso # Seg Neutrophils % Seg Neuts % (Manual) Lymphocytes % (Manual) Monocytes % (Manual) Eosinophils % (Manual) Basophils % (Manual) Nucleated RBC % Seg Neutrophils # Seg Neutrophils # Man Lymphocytes # (Manual) Monocytes # (Manual) Eosinophils # (Manual) Basophils # (Manual) PT INR Fibrinogen dRVVT Confirm Interp Factor V Activity POC ABG pH POC ABG pCO2 POC ABG pO2 ABG pO2 ABG HCO3 ABG Base Excess ABG Hemoglobin Oxyhemoglobin Sodium Potassium Chloride Carbon Dioxide BUN Creatinine Glucose POC Glucose 199 H 186 H Lactic Acid Calcium Phosphorus Magnesium Direct Bilirubin AST ALT Alkaline Phosphatase Lactate Dehydrogenase Troponin T C-Reactive Protein Total Protein Albumin Prealbumin Triglycerides Cholesterol LDL Cholesterol Direct HDL Cholesterol Urine pH Urine WBC (Auto) Urine Creatinine Urine Total Protein Fluid Total Protein Vancomycin Trough Rheumatoid Factor Complement C4 Miscellaneous Test Crossmatch See Detail 09/11/16 09/11/16 09/11/16 05:10 05:10 05:17 WBC 28.4 H RBC Hgb 9.2 L Hct 29.3 L D MCV 73 L MCH 23 L MCHC RDW 18.9 H Plt Count 452 H Lymph % (Auto) [place] % (Auto) Lymph # [place] # Baso # Seg Neutrophils % Seg Neuts % (Manual) 89.5 H Lymphocytes % (Manual) 2.0 L Monocytes % (Manual) Eosinophils % (Manual) Basophils % (Manual) Nucleated RBC % Seg Neutrophils # Seg Neutrophils # Man 25.4 H Lymphocytes # (Manual) 0.6 L Monocytes # (Manual) 1.3 H Eosinophils # (Manual) Basophils # (Manual) PT INR Fibrinogen dRVVT Confirm Interp Factor V Activity POC ABG pH POC ABG pCO2 POC ABG pO2 ABG pO2 ABG HCO3 ABG Base Excess ABG Hemoglobin Oxyhemoglobin Sodium 136 L Potassium Chloride Carbon Dioxide 18 L BUN 107 H Creatinine 2.6 H Glucose 187 H POC Glucose 230 H Lactic Acid Calcium 8.3 L Phosphorus Magnesium Direct Bilirubin AST ALT Alkaline Phosphatase Lactate Dehydrogenase Troponin T C-Reactive Protein Total Protein Albumin Prealbumin Triglycerides Cholesterol LDL Cholesterol Direct HDL Cholesterol Urine pH Urine WBC (Auto) Urine Creatinine Urine Total Protein Fluid Total Protein Vancomycin Trough Rheumatoid Factor Complement C4 Miscellaneous Test Crossmatch 09/11/16 09/11/16 09/11/16 05:55 12:02 17:32 WBC RBC Hgb Hct MCV MCH MCHC RDW Plt Count Lymph % (Auto) [place] % (Auto) Lymph # [place] # Baso # Seg Neutrophils % Seg Neuts % (Manual) Lymphocytes % (Manual) Monocytes % (Manual) Eosinophils % (Manual) Basophils % (Manual) Nucleated RBC % Seg Neutrophils # Seg Neutrophils # Man Lymphocytes # (Manual) Monocytes # (Manual) Eosinophils # (Manual) Basophils # (Manual) PT INR Fibrinogen dRVVT Confirm Interp Factor V Activity POC ABG pH POC ABG pCO2 33.8 L POC ABG pO2 ABG pO2 ABG HCO3 ABG Base Excess ABG Hemoglobin Oxyhemoglobin Sodium Potassium Chloride Carbon Dioxide BUN Creatinine Glucose POC Glucose 191 H 239 H Lactic Acid Calcium Phosphorus Magnesium Direct Bilirubin AST ALT Alkaline Phosphatase Lactate Dehydrogenase Troponin T C-Reactive Protein Total Protein Albumin Prealbumin Triglycerides Cholesterol LDL Cholesterol Direct HDL Cholesterol Urine pH Urine WBC (Auto) Urine Creatinine Urine Total Protein Fluid Total Protein Vancomycin Trough Rheumatoid Factor Complement C4 Miscellaneous Test Crossmatch 09/11/16 09/12/16 09/12/16 23:52 05:09 05:32 WBC RBC Hgb Hct MCV MCH MCHC RDW Plt Count Lymph % (Auto) [place] % (Auto) Lymph # [place] # Baso # Seg Neutrophils % Seg Neuts % (Manual) Lymphocytes % (Manual) Monocytes % (Manual) Eosinophils % (Manual) Basophils % (Manual) Nucleated RBC % Seg Neutrophils # Seg Neutrophils # Man Lymphocytes # (Manual) Monocytes # (Manual) Eosinophils # (Manual) Basophils # (Manual) PT INR Fibrinogen dRVVT Confirm Interp Factor V Activity POC ABG pH POC ABG pCO2 34.6 L POC ABG pO2 ABG pO2 ABG HCO3 ABG Base Excess ABG Hemoglobin Oxyhemoglobin Sodium Potassium Chloride Carbon Dioxide BUN Creatinine Glucose POC Glucose 265 H 184 H Lactic Acid Calcium Phosphorus Magnesium Direct Bilirubin AST ALT Alkaline Phosphatase Lactate Dehydrogenase Troponin T C-Reactive Protein Total Protein Albumin Prealbumin Triglycerides Cholesterol LDL Cholesterol Direct HDL Cholesterol Urine pH Urine WBC (Auto) Urine Creatinine Urine Total Protein Fluid Total Protein Vancomycin Trough Rheumatoid Factor Complement C4 Miscellaneous Test Crossmatch 09/12/16 09/12/16 09/12/16 06:45 06:45 07:22 WBC 31.7 H RBC 3.54 L Hgb 8.3 L Hct 25.9 L MCV 73 L MCH 23 L MCHC RDW 18.9 H Plt Count Lymph % (Auto) [place] % (Auto) Lymph # [place] # Baso # Seg Neutrophils % Seg Neuts % (Manual) 88.5 H Lymphocytes % (Manual) 4.5 L Monocytes % (Manual) Eosinophils % (Manual) Basophils % (Manual) Nucleated RBC % Seg Neutrophils # Seg Neutrophils # Man 28.1 H Lymphocytes # (Manual) Monocytes # (Manual) 1.0 H Eosinophils # (Manual) Basophils # (Manual) PT INR Fibrinogen dRVVT Confirm Interp Factor V Activity POC ABG pH POC ABG pCO2 POC ABG pO2 ABG pO2 ABG HCO3 ABG Base Excess ABG Hemoglobin Oxyhemoglobin Sodium Potassium Chloride Carbon Dioxide 20 L BUN 115 H Creatinine 2.7 H Glucose 165 H POC Glucose Lactic Acid Calcium 8.0 L Phosphorus Magnesium Direct Bilirubin AST ALT Alkaline Phosphatase Lactate Dehydrogenase Troponin T C-Reactive Protein Total Protein Albumin Prealbumin Triglycerides 217 H Cholesterol LDL Cholesterol Direct HDL Cholesterol Urine pH Urine WBC (Auto) Urine Creatinine Urine Total Protein Fluid Total Protein Vancomycin Trough Rheumatoid Factor Complement C4 Miscellaneous Test Crossmatch 09/12/16 09/12/16 09/12/16 07:22 09:59 12:21 WBC RBC Hgb Hct MCV MCH MCHC RDW Plt Count Lymph % (Auto) [place] % (Auto) Lymph # [place] # Baso # Seg Neutrophils % Seg Neuts % (Manual) Lymphocytes % (Manual) Monocytes % (Manual) Eosinophils % (Manual) Basophils % (Manual) Nucleated RBC % Seg Neutrophils # Seg Neutrophils # Man Lymphocytes # (Manual) Monocytes # (Manual) Eosinophils # (Manual) Basophils # (Manual) PT INR Fibrinogen dRVVT Confirm Interp Positive H Factor V Activity POC ABG pH POC ABG pCO2 POC ABG pO2 ABG pO2 ABG HCO3 ABG Base Excess ABG Hemoglobin Oxyhemoglobin Sodium Potassium Chloride Carbon Dioxide BUN Creatinine Glucose POC Glucose 224 H Lactic Acid Calcium Phosphorus Magnesium Direct Bilirubin AST ALT Alkaline Phosphatase Lactate Dehydrogenase Troponin T C-Reactive Protein 1.70 H Total Protein Albumin Prealbumin Triglycerides Cholesterol LDL Cholesterol Direct HDL Cholesterol Urine pH Urine WBC (Auto) Urine Creatinine Urine Total Protein Fluid Total Protein Vancomycin Trough Rheumatoid Factor Complement C4 Miscellaneous Test Crossmatch 09/12/16 09/12/16 09/13/16 16:51 23:28 04:00 WBC 45.0 H* RBC Hgb 9.4 L Hct MCV 75 L MCH 23 L MCHC RDW 19.0 H Plt Count 470 H Lymph % (Auto) [place] % (Auto) Lymph # [place] # Baso # Seg Neutrophils % Seg Neuts % (Manual) 89.0 H Lymphocytes % (Manual) 5.0 L Monocytes % (Manual) Eosinophils % (Manual) Basophils % (Manual) Nucleated RBC % Seg Neutrophils # Seg Neutrophils # Man 40.1 H Lymphocytes # (Manual) Monocytes # (Manual) Eosinophils # (Manual) Basophils # (Manual) PT INR Fibrinogen dRVVT Confirm Interp Factor V Activity POC ABG pH POC ABG pCO2 POC ABG pO2 ABG pO2 ABG HCO3 ABG Base Excess ABG Hemoglobin Oxyhemoglobin Sodium Potassium Chloride Carbon Dioxide BUN Creatinine Glucose POC Glucose 169 H 150 H Lactic Acid Calcium Phosphorus Magnesium Direct Bilirubin AST ALT Alkaline Phosphatase Lactate Dehydrogenase Troponin T C-Reactive Protein Total Protein Albumin Prealbumin Triglycerides Cholesterol LDL Cholesterol Direct HDL Cholesterol Urine pH Urine WBC (Auto) Urine Creatinine Urine Total Protein Fluid Total Protein Vancomycin Trough Rheumatoid Factor Complement C4 Miscellaneous Test Crossmatch 09/13/16 09/13/16 09/13/16 04:00 11:26 17:31 WBC RBC Hgb Hct MCV MCH MCHC RDW Plt Count Lymph % (Auto) [place] % (Auto) Lymph # [place] # Baso # Seg Neutrophils % Seg Neuts % (Manual) Lymphocytes % (Manual) Monocytes % (Manual) Eosinophils % (Manual) Basophils % (Manual) Nucleated RBC % Seg Neutrophils # Seg Neutrophils # Man Lymphocytes # (Manual) Monocytes # (Manual) Eosinophils # (Manual) Basophils # (Manual) PT INR Fibrinogen dRVVT Confirm Interp Factor V Activity POC ABG pH POC ABG pCO2 POC ABG pO2 ABG pO2 ABG HCO3 ABG Base Excess ABG Hemoglobin Oxyhemoglobin Sodium Potassium Chloride Carbon Dioxide 20 L BUN 116 H Creatinine 3.0 H Glucose 172 H POC Glucose 140 H 183 H Lactic Acid Calcium Phosphorus Magnesium Direct Bilirubin AST ALT Alkaline Phosphatase Lactate Dehydrogenase Troponin T C-Reactive Protein Total Protein 6.2 L Albumin 2.9 L Prealbumin Triglycerides Cholesterol LDL Cholesterol Direct HDL Cholesterol Urine pH Urine WBC (Auto) Urine Creatinine Urine Total Protein Fluid Total Protein Vancomycin Trough Rheumatoid Factor Complement C4 Miscellaneous Test Crossmatch 09/13/16 09/14/16 09/14/16 23:23 04:06 04:07 WBC 29.4 H RBC Hgb 8.9 L Hct 27.3 L MCV 75 L MCH 24 L MCHC RDW 19.1 H Plt Count Lymph % (Auto) [place] % (Auto) Lymph # [place] # Baso # Seg Neutrophils % Seg Neuts % (Manual) 84.0 H Lymphocytes % (Manual) 6.0 L Monocytes % (Manual) 9.0 H Eosinophils % (Manual) Basophils % (Manual) Nucleated RBC % Seg Neutrophils # Seg Neutrophils # Man 24.7 H Lymphocytes # (Manual) Monocytes # (Manual) 2.6 H Eosinophils # (Manual) Basophils # (Manual) PT INR Fibrinogen dRVVT Confirm Interp Factor V Activity POC ABG pH 7.342 L POC ABG pCO2 POC ABG pO2 116 H ABG pO2 ABG HCO3 ABG Base Excess ABG Hemoglobin Oxyhemoglobin Sodium Potassium Chloride Carbon Dioxide BUN Creatinine Glucose POC Glucose 154 H Lactic Acid Calcium Phosphorus Magnesium Direct Bilirubin AST ALT Alkaline Phosphatase Lactate Dehydrogenase Troponin T C-Reactive Protein Total Protein Albumin Prealbumin Triglycerides Cholesterol LDL Cholesterol Direct HDL Cholesterol Urine pH Urine WBC (Auto) Urine Creatinine Urine Total Protein Fluid Total Protein Vancomycin Trough Rheumatoid Factor Complement C4 Miscellaneous Test Crossmatch 09/14/16 09/14/16 09/14/16 04:07 05:29 12:19 WBC RBC Hgb Hct MCV MCH MCHC RDW Plt Count Lymph % (Auto) [place] % (Auto) Lymph # [place] # Baso # Seg Neutrophils % Seg Neuts % (Manual) Lymphocytes % (Manual) Monocytes % (Manual) Eosinophils % (Manual) Basophils % (Manual) Nucleated RBC % Seg Neutrophils # Seg Neutrophils # Man Lymphocytes # (Manual) Monocytes # (Manual) Eosinophils # (Manual) Basophils # (Manual) PT INR Fibrinogen dRVVT Confirm Interp Factor V Activity POC ABG pH POC ABG pCO2 POC ABG pO2 ABG pO2 ABG HCO3 ABG Base Excess ABG Hemoglobin Oxyhemoglobin Sodium 136 L Potassium Chloride Carbon Dioxide 18 L BUN 121 H Creatinine 2.8 H Glucose 214 H POC Glucose 239 H 181 H Lactic Acid Calcium Phosphorus Magnesium Direct Bilirubin AST ALT Alkaline Phosphatase Lactate Dehydrogenase Troponin T C-Reactive Protein Total Protein Albumin Prealbumin Triglycerides Cholesterol LDL Cholesterol Direct HDL Cholesterol Urine pH Urine WBC (Auto) Urine Creatinine Urine Total Protein Fluid Total Protein Vancomycin Trough Rheumatoid Factor Complement C4 Miscellaneous Test Crossmatch 09/14/16 09/14/16 09/15/16 18:12 23:37 05:00 WBC 26.1 H RBC 3.05 L Hgb 7.2 L Hct 22.9 L MCV 75 L MCH 24 L MCHC RDW 19.0 H Plt Count Lymph % (Auto) [place] % (Auto) Lymph # [place] # Baso # Seg Neutrophils % Seg Neuts % (Manual) Lymphocytes % (Manual) Monocytes % (Manual) Eosinophils % (Manual) Basophils % (Manual) Nucleated RBC % Seg Neutrophils # Seg Neutrophils # Man Lymphocytes # (Manual) Monocytes # (Manual) Eosinophils # (Manual) Basophils # (Manual) PT INR Fibrinogen dRVVT Confirm Interp Factor V Activity POC ABG pH POC ABG pCO2 POC ABG pO2 ABG pO2 ABG HCO3 ABG Base Excess ABG Hemoglobin Oxyhemoglobin Sodium Potassium Chloride Carbon Dioxide BUN Creatinine Glucose POC Glucose 266 H 154 H Lactic Acid Calcium Phosphorus Magnesium Direct Bilirubin AST ALT Alkaline Phosphatase Lactate Dehydrogenase Troponin T C-Reactive Protein Total Protein Albumin Prealbumin Triglycerides Cholesterol LDL Cholesterol Direct HDL Cholesterol Urine pH Urine WBC (Auto) Urine Creatinine Urine Total Protein Fluid Total Protein Vancomycin Trough Rheumatoid Factor Complement C4 Miscellaneous Test Crossmatch 09/15/16 09/15/16 09/15/16 05:00 05:17 12:45 WBC RBC Hgb Hct MCV MCH MCHC RDW Plt Count Lymph % (Auto) [place] % (Auto) Lymph # [place] # Baso # Seg Neutrophils % Seg Neuts % (Manual) Lymphocytes % (Manual) Monocytes % (Manual) Eosinophils % (Manual) Basophils % (Manual) Nucleated RBC % Seg Neutrophils # Seg Neutrophils # Man Lymphocytes # (Manual) Monocytes # (Manual) Eosinophils # (Manual) Basophils # (Manual) PT INR Fibrinogen dRVVT Confirm Interp Factor V Activity POC ABG pH POC ABG pCO2 POC ABG pO2 ABG pO2 ABG HCO3 ABG Base Excess ABG Hemoglobin Oxyhemoglobin Sodium Potassium 5.2 H Chloride Carbon Dioxide 18 L BUN 139 H Creatinine 3.7 H Glucose 227 H POC Glucose 226 H 244 H Lactic Acid Calcium 8.3 L Phosphorus Magnesium Direct Bilirubin AST ALT Alkaline Phosphatase Lactate Dehydrogenase Troponin T C-Reactive Protein Total Protein Albumin Prealbumin Triglycerides Cholesterol LDL Cholesterol Direct HDL Cholesterol Urine pH Urine WBC (Auto) Urine Creatinine Urine Total Protein Fluid Total Protein Vancomycin Trough Rheumatoid Factor Complement C4 Miscellaneous Test Crossmatch 09/15/16 09/15/16 09/15/16 14:32 17:33 23:35 WBC RBC Hgb Hct MCV MCH MCHC RDW Plt Count Lymph % (Auto) [place] % (Auto) Lymph # [place] # Baso # Seg Neutrophils % Seg Neuts % (Manual) Lymphocytes % (Manual) Monocytes % (Manual) Eosinophils % (Manual) Basophils % (Manual) Nucleated RBC % Seg Neutrophils # Seg Neutrophils # Man Lymphocytes # (Manual) Monocytes # (Manual) Eosinophils # (Manual) Basophils # (Manual) PT INR Fibrinogen dRVVT Confirm Interp Factor V Activity POC ABG pH POC ABG pCO2 27.7 L POC ABG pO2 120 H ABG pO2 ABG HCO3 ABG Base Excess ABG Hemoglobin Oxyhemoglobin Sodium Potassium Chloride Carbon Dioxide BUN Creatinine Glucose POC Glucose 232 H 167 H Lactic Acid Calcium Phosphorus Magnesium Direct Bilirubin AST ALT Alkaline Phosphatase Lactate Dehydrogenase Troponin T C-Reactive Protein Total Protein Albumin Prealbumin Triglycerides Cholesterol LDL Cholesterol Direct HDL Cholesterol Urine pH Urine WBC (Auto) Urine Creatinine Urine Total Protein Fluid Total Protein Vancomycin Trough Rheumatoid Factor Complement C4 Miscellaneous Test Crossmatch 09/16/16 09/16/16 09/16/16 03:58 10:27 10:27 WBC 19.0 H RBC 2.77 L Hgb 6.5 L Hct 20.9 L MCV 76 L MCH 23 L MCHC RDW 19.3 H Plt Count Lymph % (Auto) 11.0 L [place] % (Auto) Lymph # [place] # 1.1 H Baso # Seg Neutrophils % 82.5 H Seg Neuts % (Manual) Lymphocytes % (Manual) Monocytes % (Manual) Eosinophils % (Manual) Basophils % (Manual) Nucleated RBC % Seg Neutrophils # 15.7 H Seg Neutrophils # Man Lymphocytes # (Manual) Monocytes # (Manual) Eosinophils # (Manual) Basophils # (Manual) PT INR Fibrinogen dRVVT Confirm Interp Factor V Activity POC ABG pH POC ABG pCO2 POC ABG pO2 ABG pO2 ABG HCO3 ABG Base Excess ABG Hemoglobin Oxyhemoglobin Sodium Potassium Chloride 109.3 H Carbon Dioxide 18 L BUN 139 H Creatinine 4.1 H Glucose 144 H POC Glucose 146 H Lactic Acid Calcium 8.1 L Phosphorus Magnesium Direct Bilirubin AST ALT Alkaline Phosphatase Lactate Dehydrogenase Troponin T C-Reactive Protein Total Protein Albumin Prealbumin Triglycerides Cholesterol LDL Cholesterol Direct HDL Cholesterol Urine pH Urine WBC (Auto) Urine Creatinine Urine Total Protein Fluid Total Protein Vancomycin Trough Rheumatoid Factor Complement C4 Miscellaneous Test Crossmatch 09/16/16 09/16/16 09/16/16 12:04 12:10 13:55 WBC RBC Hgb Hct MCV MCH MCHC RDW Plt Count Lymph % (Auto) [place] % (Auto) Lymph # [place] # Baso # Seg Neutrophils % Seg Neuts % (Manual) Lymphocytes % (Manual) Monocytes % (Manual) Eosinophils % (Manual) Basophils % (Manual) Nucleated RBC % Seg Neutrophils # Seg Neutrophils # Man Lymphocytes # (Manual) Monocytes # (Manual) Eosinophils # (Manual) Basophils # (Manual) PT INR Fibrinogen dRVVT Confirm Interp Factor V Activity POC ABG pH POC ABG pCO2 32.9 L POC ABG pO2 ABG pO2 ABG HCO3 ABG Base Excess ABG Hemoglobin Oxyhemoglobin Sodium Potassium Chloride Carbon Dioxide BUN Creatinine Glucose POC Glucose 185 H Lactic Acid Calcium Phosphorus Magnesium Direct Bilirubin AST ALT Alkaline Phosphatase Lactate Dehydrogenase Troponin T C-Reactive Protein Total Protein Albumin Prealbumin Triglycerides Cholesterol LDL Cholesterol Direct HDL Cholesterol Urine pH Urine WBC (Auto) Urine Creatinine Urine Total Protein Fluid Total Protein Vancomycin Trough Rheumatoid Factor Complement C4 Miscellaneous Test Crossmatch See Detail 09/16/16 09/16/16 09/16/16 17:55 19:19 23:48 WBC RBC Hgb Hct MCV MCH MCHC RDW Plt Count Lymph % (Auto) [place] % (Auto) Lymph # [place] # Baso # Seg Neutrophils % Seg Neuts % (Manual) Lymphocytes % (Manual) Monocytes % (Manual) Eosinophils % (Manual) Basophils % (Manual) Nucleated RBC % Seg Neutrophils # Seg Neutrophils # Man Lymphocytes # (Manual) Monocytes # (Manual) Eosinophils # (Manual) Basophils # (Manual) PT INR Fibrinogen dRVVT Confirm Interp Factor V Activity POC ABG pH POC ABG pCO2 POC ABG pO2 ABG pO2 ABG HCO3 ABG Base Excess ABG Hemoglobin Oxyhemoglobin Sodium Potassium Chloride Carbon Dioxide BUN Creatinine Glucose POC Glucose 222 H 107 H Lactic Acid Calcium Phosphorus Magnesium Direct Bilirubin AST ALT Alkaline Phosphatase Lactate Dehydrogenase Troponin T C-Reactive Protein Total Protein Albumin Prealbumin Triglycerides Cholesterol LDL Cholesterol Direct HDL Cholesterol Urine pH Urine WBC (Auto) Urine Creatinine 47.4 H Urine Total Protein 16 H Fluid Total Protein Vancomycin Trough Rheumatoid Factor Complement C4 Miscellaneous Test Crossmatch 09/17/16 09/17/16 09/17/16 03:45 03:45 04:55 WBC 19.6 H RBC 3.41 L Hgb 8.5 L Hct 26.7 L MCV 78 L MCH 25 L MCHC RDW 19.9 H Plt Count Lymph % (Auto) 9.3 L [place] % (Auto) Lymph # [place] # 1.2 H Baso # Seg Neutrophils % 83.9 H Seg Neuts % (Manual) Lymphocytes % (Manual) Monocytes % (Manual) Eosinophils % (Manual) Basophils % (Manual) Nucleated RBC % Seg Neutrophils # 16.4 H Seg Neutrophils # Man Lymphocytes # (Manual) Monocytes # (Manual) Eosinophils # (Manual) Basophils # (Manual) PT INR Fibrinogen dRVVT Confirm Interp Factor V Activity POC ABG pH POC ABG pCO2 POC ABG pO2 ABG pO2 ABG HCO3 ABG Base Excess ABG Hemoglobin Oxyhemoglobin Sodium 146 H Potassium 5.1 H Chloride 110.9 H Carbon Dioxide 16 L BUN 146 H Creatinine 4.0 H Glucose 108 H POC Glucose 133 H Lactic Acid Calcium Phosphorus Magnesium 3.00 H Direct Bilirubin AST ALT Alkaline Phosphatase Lactate Dehydrogenase Troponin T C-Reactive Protein Total Protein Albumin Prealbumin Triglycerides Cholesterol LDL Cholesterol Direct HDL Cholesterol Urine pH Urine WBC (Auto) Urine Creatinine Urine Total Protein Fluid Total Protein Vancomycin Trough Rheumatoid Factor Complement C4 Miscellaneous Test Crossmatch 09/17/16 09/17/16 09/17/16 11:15 17:33 23:47 WBC RBC Hgb Hct MCV MCH MCHC RDW Plt Count Lymph % (Auto) [place] % (Auto) Lymph # [place] # Baso # Seg Neutrophils % Seg Neuts % (Manual) Lymphocytes % (Manual) Monocytes % (Manual) Eosinophils % (Manual) Basophils % (Manual) Nucleated RBC % Seg Neutrophils # Seg Neutrophils # Man Lymphocytes # (Manual) Monocytes # (Manual) Eosinophils # (Manual) Basophils # (Manual) PT INR Fibrinogen dRVVT Confirm Interp Factor V Activity POC ABG pH POC ABG pCO2 POC ABG pO2 ABG pO2 ABG HCO3 ABG Base Excess ABG Hemoglobin Oxyhemoglobin Sodium Potassium Chloride Carbon Dioxide BUN Creatinine Glucose POC Glucose 176 H 246 H 148 H Lactic Acid Calcium Phosphorus Magnesium Direct Bilirubin AST ALT Alkaline Phosphatase Lactate Dehydrogenase Troponin T C-Reactive Protein Total Protein Albumin Prealbumin Triglycerides Cholesterol LDL Cholesterol Direct HDL Cholesterol Urine pH Urine WBC (Auto) Urine Creatinine Urine Total Protein Fluid Total Protein Vancomycin Trough Rheumatoid Factor Complement C4 Miscellaneous Test Crossmatch 09/18/16 09/18/16 09/18/16 05:33 08:31 08:31 WBC 18.0 H RBC 3.17 L Hgb 9.0 L Hct 25.7 L MCV MCH MCHC 35 H RDW 20.4 H Plt Count Lymph % (Auto) [place] % (Auto) Lymph # [place] # Baso # Seg Neutrophils % Seg Neuts % (Manual) Lymphocytes % (Manual) Monocytes % (Manual) Eosinophils % (Manual) Basophils % (Manual) Nucleated RBC % Seg Neutrophils # Seg Neutrophils # Man Lymphocytes # (Manual) Monocytes # (Manual) Eosinophils # (Manual) Basophils # (Manual) PT INR Fibrinogen dRVVT Confirm Interp Factor V Activity POC ABG pH POC ABG pCO2 POC ABG pO2 ABG pO2 ABG HCO3 ABG Base Excess ABG Hemoglobin Oxyhemoglobin Sodium Potassium Chloride Carbon Dioxide 15 L BUN 124 H Creatinine 3.8 H Glucose POC Glucose 120 H Lactic Acid Calcium 8.1 L Phosphorus Magnesium Direct Bilirubin AST ALT Alkaline Phosphatase Lactate Dehydrogenase Troponin T C-Reactive Protein Total Protein Albumin Prealbumin Triglycerides Cholesterol LDL Cholesterol Direct HDL Cholesterol Urine pH Urine WBC (Auto) Urine Creatinine Urine Total Protein Fluid Total Protein Vancomycin Trough Rheumatoid Factor Complement C4 Miscellaneous Test Crossmatch 09/18/16 09/18/16 09/18/16 12:03 15:34 17:50 WBC RBC Hgb Hct MCV MCH MCHC RDW Plt Count Lymph % (Auto) [place] % (Auto) Lymph # [place] # Baso # Seg Neutrophils % Seg Neuts % (Manual) Lymphocytes % (Manual) Monocytes % (Manual) Eosinophils % (Manual) Basophils % (Manual) Nucleated RBC % Seg Neutrophils # Seg Neutrophils # Man Lymphocytes # (Manual) Monocytes # (Manual) Eosinophils # (Manual) Basophils # (Manual) PT INR Fibrinogen dRVVT Confirm Interp Factor V Activity POC ABG pH POC ABG pCO2 25.7 L POC ABG pO2 66 L ABG pO2 ABG HCO3 ABG Base Excess ABG Hemoglobin Oxyhemoglobin Sodium Potassium Chloride Carbon Dioxide BUN Creatinine Glucose POC Glucose 156 H 220 H Lactic Acid Calcium Phosphorus Magnesium Direct Bilirubin AST ALT Alkaline Phosphatase Lactate Dehydrogenase Troponin T C-Reactive Protein Total Protein Albumin Prealbumin Triglycerides Cholesterol LDL Cholesterol Direct HDL Cholesterol Urine pH Urine WBC (Auto) Urine Creatinine Urine Total Protein Fluid Total Protein Vancomycin Trough Rheumatoid Factor Complement C4 Miscellaneous Test Crossmatch 09/19/16 09/19/16 09/19/16 06:21 09:50 09:50 WBC 17.1 H RBC 3.49 L Hgb 9.0 L Hct 28.1 L MCV MCH 26 L MCHC RDW 20.8 H Plt Count Lymph % (Auto) 11.5 L [place] % (Auto) 7.5 H Lymph # [place] # 1.3 H Baso # Seg Neutrophils % 79.8 H Seg Neuts % (Manual) Lymphocytes % (Manual) Monocytes % (Manual) Eosinophils % (Manual) Basophils % (Manual) Nucleated RBC % Seg Neutrophils # 13.7 H Seg Neutrophils # Man Lymphocytes # (Manual) Monocytes # (Manual) Eosinophils # (Manual) Basophils # (Manual) PT INR Fibrinogen dRVVT Confirm Interp Factor V Activity POC ABG pH POC ABG pCO2 POC ABG pO2 ABG pO2 ABG HCO3 ABG Base Excess ABG Hemoglobin Oxyhemoglobin Sodium Potassium Chloride 108.6 H Carbon Dioxide 15 L BUN 125 H Creatinine 4.1 H Glucose 124 H POC Glucose 119 H Lactic Acid Calcium Phosphorus Magnesium Direct Bilirubin AST ALT Alkaline Phosphatase Lactate Dehydrogenase Troponin T C-Reactive Protein Total Protein Albumin Prealbumin Triglycerides Cholesterol LDL Cholesterol Direct HDL Cholesterol Urine pH Urine WBC (Auto) Urine Creatinine Urine Total Protein Fluid Total Protein Vancomycin Trough Rheumatoid Factor Complement C4 Miscellaneous Test Crossmatch 09/19/16 09/19/16 09/19/16 11:25 17:53 23:36 WBC RBC Hgb Hct MCV MCH MCHC RDW Plt Count Lymph % (Auto) [place] % (Auto) Lymph # [place] # Baso # Seg Neutrophils % Seg Neuts % (Manual) Lymphocytes % (Manual) Monocytes % (Manual) Eosinophils % (Manual) Basophils % (Manual) Nucleated RBC % Seg Neutrophils # Seg Neutrophils # Man Lymphocytes # (Manual) Monocytes # (Manual) Eosinophils # (Manual) Basophils # (Manual) PT INR Fibrinogen dRVVT Confirm Interp Factor V Activity POC ABG pH POC ABG pCO2 POC ABG pO2 ABG pO2 ABG HCO3 ABG Base Excess ABG Hemoglobin Oxyhemoglobin Sodium Potassium Chloride Carbon Dioxide BUN Creatinine Glucose POC Glucose 160 H 245 H 121 H Lactic Acid Calcium Phosphorus Magnesium Direct Bilirubin AST ALT Alkaline Phosphatase Lactate Dehydrogenase Troponin T C-Reactive Protein Total Protein Albumin Prealbumin Triglycerides Cholesterol LDL Cholesterol Direct HDL Cholesterol Urine pH Urine WBC (Auto) Urine Creatinine Urine Total Protein Fluid Total Protein Vancomycin Trough Rheumatoid Factor Complement C4 Miscellaneous Test Crossmatch 09/20/16 09/20/16 09/20/16 04:10 04:10 04:10 WBC 17.0 H RBC 3.21 L Hgb 8.2 L Hct 25.5 L MCV MCH 26 L MCHC RDW 20.9 H Plt Count Lymph % (Auto) [place] % (Auto) Lymph # [place] # Baso # Seg Neutrophils % Seg Neuts % (Manual) Lymphocytes % (Manual) Monocytes % (Manual) Eosinophils % (Manual) Basophils % (Manual) Nucleated RBC % Seg Neutrophils # Seg Neutrophils # Man Lymphocytes # (Manual) Monocytes # (Manual) Eosinophils # (Manual) Basophils # (Manual) PT INR Fibrinogen dRVVT Confirm Interp Factor V Activity POC ABG pH POC ABG pCO2 POC ABG pO2 ABG pO2 ABG HCO3 ABG Base Excess ABG Hemoglobin Oxyhemoglobin Sodium Potassium Chloride 111.0 H Carbon Dioxide 16 L BUN 129 H Creatinine 3.7 H Glucose 115 H POC Glucose Lactic Acid Calcium 8.2 L Phosphorus Magnesium Direct Bilirubin AST ALT Alkaline Phosphatase Lactate Dehydrogenase Troponin T C-Reactive Protein Total Protein Albumin Prealbumin Triglycerides 243 H Cholesterol LDL Cholesterol Direct HDL Cholesterol Urine pH Urine WBC (Auto) Urine Creatinine Urine Total Protein Fluid Total Protein Vancomycin Trough Rheumatoid Factor Complement C4 Miscellaneous Test Crossmatch 09/20/16 09/20/16 09/20/16 05:40 11:52 16:50 WBC RBC Hgb Hct MCV MCH MCHC RDW Plt Count Lymph % (Auto) [place] % (Auto) Lymph # [place] # Baso # Seg Neutrophils % Seg Neuts % (Manual) Lymphocytes % (Manual) Monocytes % (Manual) Eosinophils % (Manual) Basophils % (Manual) Nucleated RBC % Seg Neutrophils # Seg Neutrophils # Man Lymphocytes # (Manual) Monocytes # (Manual) Eosinophils # (Manual) Basophils # (Manual) PT INR Fibrinogen dRVVT Confirm Interp Factor V Activity POC ABG pH POC ABG pCO2 POC ABG pO2 ABG pO2 ABG HCO3 ABG Base Excess ABG Hemoglobin Oxyhemoglobin Sodium Potassium Chloride Carbon Dioxide BUN Creatinine Glucose POC Glucose 131 H 183 H 236 H Lactic Acid Calcium Phosphorus Magnesium Direct Bilirubin AST ALT Alkaline Phosphatase Lactate Dehydrogenase Troponin T C-Reactive Protein Total Protein Albumin Prealbumin Triglycerides Cholesterol LDL Cholesterol Direct HDL Cholesterol Urine pH Urine WBC (Auto) Urine Creatinine Urine Total Protein Fluid Total Protein Vancomycin Trough Rheumatoid Factor Complement C4 Miscellaneous Test Crossmatch 09/20/16 09/21/16 09/21/16 23:51 03:30 04:44 WBC RBC Hgb Hct MCV MCH MCHC RDW Plt Count Lymph % (Auto) [place] % (Auto) Lymph # [place] # Baso # Seg Neutrophils % Seg Neuts % (Manual) Lymphocytes % (Manual) Monocytes % (Manual) Eosinophils % (Manual) Basophils % (Manual) Nucleated RBC % Seg Neutrophils # Seg Neutrophils # Man Lymphocytes # (Manual) Monocytes # (Manual) Eosinophils # (Manual) Basophils # (Manual) PT INR Fibrinogen dRVVT Confirm Interp Factor V Activity POC ABG pH POC ABG pCO2 POC ABG pO2 ABG pO2 ABG HCO3 ABG Base Excess ABG Hemoglobin Oxyhemoglobin Sodium Potassium Chloride Carbon Dioxide BUN Creatinine Glucose POC Glucose 114 H 141 H Lactic Acid Calcium Phosphorus Magnesium 2.70 H Direct Bilirubin AST ALT Alkaline Phosphatase Lactate Dehydrogenase Troponin T C-Reactive Protein Total Protein Albumin Prealbumin Triglycerides Cholesterol LDL Cholesterol Direct HDL Cholesterol Urine pH Urine WBC (Auto) Urine Creatinine Urine Total Protein Fluid Total Protein Vancomycin Trough Rheumatoid Factor Complement C4 Miscellaneous Test Crossmatch 09/21/16 09/21/16 09/21/16 07:45 07:45 10:01 WBC 13.8 H RBC 2.94 L Hgb 7.5 L Hct 23.5 L MCV MCH 26 L MCHC RDW 21.2 H Plt Count Lymph % (Auto) 6.9 L [place] % (Auto) 9.4 H Lymph # 0.9 L [place] # 1.3 H Baso # Seg Neutrophils % 83.2 H Seg Neuts % (Manual) Lymphocytes % (Manual) Monocytes % (Manual) Eosinophils % (Manual) Basophils % (Manual) Nucleated RBC % Seg Neutrophils # 11.5 H Seg Neutrophils # Man Lymphocytes # (Manual) Monocytes # (Manual) Eosinophils # (Manual) Basophils # (Manual) PT INR Fibrinogen dRVVT Confirm Interp Factor V Activity POC ABG pH 7.308 L POC ABG pCO2 31.9 L POC ABG pO2 148 H ABG pO2 ABG HCO3 ABG Base Excess ABG Hemoglobin Oxyhemoglobin Sodium 147 H Potassium Chloride 114.2 H Carbon Dioxide 15 L BUN 120 H Creatinine 3.9 H Glucose 156 H POC Glucose Lactic Acid Calcium 8.2 L Phosphorus Magnesium Direct Bilirubin AST ALT Alkaline Phosphatase Lactate Dehydrogenase Troponin T C-Reactive Protein Total Protein Albumin Prealbumin Triglycerides Cholesterol LDL Cholesterol Direct HDL Cholesterol Urine pH Urine WBC (Auto) Urine Creatinine Urine Total Protein Fluid Total Protein Vancomycin Trough Rheumatoid Factor Complement C4 Miscellaneous Test Crossmatch 09/21/16 09/21/16 09/21/16 12:00 12:03 13:00 WBC RBC Hgb Hct MCV MCH MCHC RDW Plt Count Lymph % (Auto) [place] % (Auto) Lymph # [place] # Baso # Seg Neutrophils % Seg Neuts % (Manual) Lymphocytes % (Manual) Monocytes % (Manual) Eosinophils % (Manual) Basophils % (Manual) Nucleated RBC % Seg Neutrophils # Seg Neutrophils # Man Lymphocytes # (Manual) Monocytes # (Manual) Eosinophils # (Manual) Basophils # (Manual) PT INR Fibrinogen dRVVT Confirm Interp Factor V Activity POC ABG pH POC ABG pCO2 POC ABG pO2 ABG pO2 ABG HCO3 ABG Base Excess ABG Hemoglobin Oxyhemoglobin Sodium Potassium Chloride Carbon Dioxide BUN Creatinine Glucose POC Glucose 163 H Lactic Acid Calcium Phosphorus Magnesium Direct Bilirubin AST ALT Alkaline Phosphatase Lactate Dehydrogenase Troponin T C-Reactive Protein Total Protein Albumin Prealbumin Triglycerides Cholesterol LDL Cholesterol Direct HDL Cholesterol Urine pH Urine WBC (Auto) Urine Creatinine 54.8 H Urine Total Protein Fluid Total Protein Vancomycin Trough 2.3 L Rheumatoid Factor Complement C4 Miscellaneous Test Crossmatch 09/21/16 09/21/16 09/22/16 16:51 23:17 06:27 WBC RBC Hgb Hct MCV MCH MCHC RDW Plt Count Lymph % (Auto) [place] % (Auto) Lymph # [place] # Baso # Seg Neutrophils % Seg Neuts % (Manual) Lymphocytes % (Manual) Monocytes % (Manual) Eosinophils % (Manual) Basophils % (Manual) Nucleated RBC % Seg Neutrophils # Seg Neutrophils # Man Lymphocytes # (Manual) Monocytes # (Manual) Eosinophils # (Manual) Basophils # (Manual) PT INR Fibrinogen dRVVT Confirm Interp Factor V Activity POC ABG pH POC ABG pCO2 POC ABG pO2 ABG pO2 ABG HCO3 ABG Base Excess ABG Hemoglobin Oxyhemoglobin Sodium Potassium Chloride Carbon Dioxide BUN Creatinine Glucose POC Glucose 206 H 114 H 115 H Lactic Acid Calcium Phosphorus Magnesium Direct Bilirubin AST ALT Alkaline Phosphatase Lactate Dehydrogenase Troponin T C-Reactive Protein Total Protein Albumin Prealbumin Triglycerides Cholesterol LDL Cholesterol Direct HDL Cholesterol Urine pH Urine WBC (Auto) Urine Creatinine Urine Total Protein Fluid Total Protein Vancomycin Trough Rheumatoid Factor Complement C4 Miscellaneous Test Crossmatch 09/22/16 09/22/16 09/22/16 07:50 07:50 12:00 WBC 17.8 H RBC 3.04 L Hgb 8.0 L Hct 24.7 L MCV MCH 26 L MCHC RDW 21.6 H Plt Count Lymph % (Auto) [place] % (Auto) Lymph # [place] # Baso # Seg Neutrophils % Seg Neuts % (Manual) Lymphocytes % (Manual) Monocytes % (Manual) Eosinophils % (Manual) Basophils % (Manual) Nucleated RBC % Seg Neutrophils # Seg Neutrophils # Man Lymphocytes # (Manual) Monocytes # (Manual) Eosinophils # (Manual) Basophils # (Manual) PT INR Fibrinogen dRVVT Confirm Interp Factor V Activity POC ABG pH POC ABG pCO2 POC ABG pO2 ABG pO2 ABG HCO3 ABG Base Excess ABG Hemoglobin Oxyhemoglobin Sodium 150 H Potassium Chloride 118.2 H Carbon Dioxide 14 L BUN 111 H Creatinine 3.7 H Glucose 157 H POC Glucose 183 H Lactic Acid Calcium Phosphorus Magnesium Direct Bilirubin AST ALT Alkaline Phosphatase Lactate Dehydrogenase Troponin T C-Reactive Protein Total Protein Albumin Prealbumin Triglycerides Cholesterol LDL Cholesterol Direct HDL Cholesterol Urine pH Urine WBC (Auto) Urine Creatinine Urine Total Protein Fluid Total Protein Vancomycin Trough Rheumatoid Factor Complement C4 Miscellaneous Test Crossmatch 09/22/16 09/22/16 09/23/16 17:29 23:10 05:00 WBC 19.2 H RBC 3.13 L Hgb 8.0 L Hct 25.2 L MCV MCH 26 L MCHC RDW 22.1 H Plt Count Lymph % (Auto) [place] % (Auto) Lymph # [place] # Baso # Seg Neutrophils % Seg Neuts % (Manual) 92.0 H Lymphocytes % (Manual) 3.0 L Monocytes % (Manual) Eosinophils % (Manual) Basophils % (Manual) Nucleated RBC % Seg Neutrophils # Seg Neutrophils # Man 17.7 H Lymphocytes # (Manual) 0.6 L Monocytes # (Manual) Eosinophils # (Manual) Basophils # (Manual) PT INR Fibrinogen dRVVT Confirm Interp Factor V Activity POC ABG pH POC ABG pCO2 POC ABG pO2 ABG pO2 ABG HCO3 ABG Base Excess ABG Hemoglobin Oxyhemoglobin Sodium Potassium Chloride Carbon Dioxide BUN Creatinine Glucose POC Glucose 197 H 169 H Lactic Acid Calcium Phosphorus Magnesium Direct Bilirubin AST ALT Alkaline Phosphatase Lactate Dehydrogenase Troponin T C-Reactive Protein Total Protein Albumin Prealbumin Triglycerides Cholesterol LDL Cholesterol Direct HDL Cholesterol Urine pH Urine WBC (Auto) Urine Creatinine Urine Total Protein Fluid Total Protein Vancomycin Trough Rheumatoid Factor Complement C4 Miscellaneous Test Crossmatch 09/23/16 09/23/16 09/23/16 05:00 05:00 05:10 WBC RBC Hgb Hct MCV MCH MCHC RDW Plt Count Lymph % (Auto) [place] % (Auto) Lymph # [place] # Baso # Seg Neutrophils % Seg Neuts % (Manual) Lymphocytes % (Manual) Monocytes % (Manual) Eosinophils % (Manual) Basophils % (Manual) Nucleated RBC % Seg Neutrophils # Seg Neutrophils # Man Lymphocytes # (Manual) Monocytes # (Manual) Eosinophils # (Manual) Basophils # (Manual) PT INR Fibrinogen dRVVT Confirm Interp Factor V Activity POC ABG pH POC ABG pCO2 POC ABG pO2 ABG pO2 ABG HCO3 ABG Base Excess ABG Hemoglobin Oxyhemoglobin Sodium 147 H Potassium 3.2 L Chloride 115.7 H Carbon Dioxide 13 L BUN 111 H Creatinine 3.8 H Glucose 194 H POC Glucose 188 H Lactic Acid Calcium 7.3 L D Phosphorus Magnesium Direct Bilirubin AST ALT Alkaline Phosphatase Lactate Dehydrogenase Troponin T C-Reactive Protein 3.20 H Total Protein Albumin Prealbumin Triglycerides Cholesterol LDL Cholesterol Direct HDL Cholesterol Urine pH Urine WBC (Auto) Urine Creatinine Urine Total Protein Fluid Total Protein Vancomycin Trough Rheumatoid Factor Complement C4 Miscellaneous Test Crossmatch 09/23/16 09/23/16 09/23/16 11:37 12:29 18:01 WBC RBC Hgb Hct MCV MCH MCHC RDW Plt Count Lymph % (Auto) [place] % (Auto) Lymph # [place] # Baso # Seg Neutrophils % Seg Neuts % (Manual) Lymphocytes % (Manual) Monocytes % (Manual) Eosinophils % (Manual) Basophils % (Manual) Nucleated RBC % Seg Neutrophils # Seg Neutrophils # Man Lymphocytes # (Manual) Monocytes # (Manual) Eosinophils # (Manual) Basophils # (Manual) PT INR Fibrinogen dRVVT Confirm Interp Factor V Activity POC ABG pH POC ABG pCO2 18.9 L POC ABG pO2 143 H ABG pO2 ABG HCO3 ABG Base Excess ABG Hemoglobin Oxyhemoglobin Sodium Potassium Chloride Carbon Dioxide BUN Creatinine Glucose POC Glucose 153 H 108 H Lactic Acid Calcium Phosphorus Magnesium Direct Bilirubin AST ALT Alkaline Phosphatase Lactate Dehydrogenase Troponin T C-Reactive Protein Total Protein Albumin Prealbumin Triglycerides Cholesterol LDL Cholesterol Direct HDL Cholesterol Urine pH Urine WBC (Auto) Urine Creatinine Urine Total Protein Fluid Total Protein Vancomycin Trough Rheumatoid Factor Complement C4 Miscellaneous Test Crossmatch 09/23/16 09/23/16 09/24/16 21:19 23:43 05:16 WBC RBC Hgb Hct MCV MCH MCHC RDW Plt Count Lymph % (Auto) [place] % (Auto) Lymph # [place] # Baso # Seg Neutrophils % Seg Neuts % (Manual) Lymphocytes % (Manual) Monocytes % (Manual) Eosinophils % (Manual) Basophils % (Manual) Nucleated RBC % Seg Neutrophils # Seg Neutrophils # Man Lymphocytes # (Manual) Monocytes # (Manual) Eosinophils # (Manual) Basophils # (Manual) PT INR Fibrinogen dRVVT Confirm Interp Factor V Activity POC ABG pH POC ABG pCO2 17.3 L POC ABG pO2 112 H ABG pO2 ABG HCO3 ABG Base Excess ABG Hemoglobin Oxyhemoglobin Sodium Potassium Chloride Carbon Dioxide BUN Creatinine Glucose POC Glucose 143 H 164 H Lactic Acid Calcium Phosphorus Magnesium Direct Bilirubin AST ALT Alkaline Phosphatase Lactate Dehydrogenase Troponin T C-Reactive Protein Total Protein Albumin Prealbumin Triglycerides Cholesterol LDL Cholesterol Direct HDL Cholesterol Urine pH Urine WBC (Auto) Urine Creatinine Urine Total Protein Fluid Total Protein Vancomycin Trough Rheumatoid Factor Complement C4 Miscellaneous Test Crossmatch 09/24/16 09/24/16 09/24/16 05:21 11:58 17:06 WBC RBC Hgb Hct MCV MCH MCHC RDW Plt Count Lymph % (Auto) [place] % (Auto) Lymph # [place] # Baso # Seg Neutrophils % Seg Neuts % (Manual) Lymphocytes % (Manual) Monocytes % (Manual) Eosinophils % (Manual) Basophils % (Manual) Nucleated RBC % Seg Neutrophils # Seg Neutrophils # Man Lymphocytes # (Manual) Monocytes # (Manual) Eosinophils # (Manual) Basophils # (Manual) PT INR Fibrinogen dRVVT Confirm Interp Factor V Activity POC ABG pH POC ABG pCO2 POC ABG pO2 ABG pO2 ABG HCO3 ABG Base Excess ABG Hemoglobin Oxyhemoglobin Sodium Potassium Chloride Carbon Dioxide 10 L BUN 103 H Creatinine 4.3 H Glucose 163 H POC Glucose 173 H 167 H Lactic Acid Calcium 6.5 L Phosphorus Magnesium Direct Bilirubin AST ALT Alkaline Phosphatase Lactate Dehydrogenase Troponin T C-Reactive Protein Total Protein Albumin Prealbumin Triglycerides Cholesterol LDL Cholesterol Direct HDL Cholesterol Urine pH Urine WBC (Auto) Urine Creatinine Urine Total Protein Fluid Total Protein Vancomycin Trough Rheumatoid Factor Complement C4 Miscellaneous Test Crossmatch 09/24/16 09/24/16 09/24/16 20:15 21:02 23:48 WBC RBC Hgb Hct MCV MCH MCHC RDW Plt Count Lymph % (Auto) [place] % (Auto) Lymph # [place] # Baso # Seg Neutrophils % Seg Neuts % (Manual) Lymphocytes % (Manual) Monocytes % (Manual) Eosinophils % (Manual) Basophils % (Manual) Nucleated RBC % Seg Neutrophils # Seg Neutrophils # Man Lymphocytes # (Manual) Monocytes # (Manual) Eosinophils # (Manual) Basophils # (Manual) PT INR Fibrinogen dRVVT Confirm Interp Factor V Activity POC ABG pH 7.288 L POC ABG pCO2 30.2 L 21.5 L POC ABG pO2 32 L 39 L ABG pO2 ABG HCO3 ABG Base Excess ABG Hemoglobin Oxyhemoglobin Sodium Potassium Chloride Carbon Dioxide BUN Creatinine Glucose POC Glucose 109 H Lactic Acid Calcium Phosphorus Magnesium Direct Bilirubin AST ALT Alkaline Phosphatase Lactate Dehydrogenase Troponin T C-Reactive Protein Total Protein Albumin Prealbumin Triglycerides Cholesterol LDL Cholesterol Direct HDL Cholesterol Urine pH Urine WBC (Auto) Urine Creatinine Urine Total Protein Fluid Total Protein Vancomycin Trough Rheumatoid Factor Complement C4 Miscellaneous Test Crossmatch 09/25/16 09/25/16 09/25/16 04:20 04:20 04:20 WBC RBC 2.58 L Hgb 7.0 L Hct 21.0 L MCV MCH 27 L MCHC RDW 23.8 H Plt Count Lymph % (Auto) [place] % (Auto) Lymph # [place] # Baso # Seg Neutrophils % Seg Neuts % (Manual) Lymphocytes % (Manual) 12.0 L Monocytes % (Manual) Eosinophils % (Manual) 7.0 H Basophils % (Manual) 2.0 H Nucleated RBC % Seg Neutrophils # Seg Neutrophils # Man Lymphocytes # (Manual) 0.9 L Monocytes # (Manual) Eosinophils # (Manual) 0.5 H Basophils # (Manual) PT INR Fibrinogen dRVVT Confirm Interp Factor V Activity POC ABG pH POC ABG pCO2 POC ABG pO2 ABG pO2 ABG HCO3 ABG Base Excess ABG Hemoglobin Oxyhemoglobin Sodium Potassium Chloride Carbon Dioxide 15 L BUN 72 H Creatinine 3.8 H Glucose POC Glucose Lactic Acid Calcium 6.0 L Phosphorus 4.60 H Magnesium 1.60 L Direct Bilirubin AST ALT Alkaline Phosphatase Lactate Dehydrogenase Troponin T C-Reactive Protein Total Protein Albumin Prealbumin Triglycerides Cholesterol LDL Cholesterol Direct HDL Cholesterol Urine pH Urine WBC (Auto) Urine Creatinine Urine Total Protein Fluid Total Protein Vancomycin Trough Rheumatoid Factor Complement C4 Miscellaneous Test Crossmatch 09/25/16 09/25/16 09/25/16 04:57 08:02 10:30 WBC RBC Hgb Hct MCV MCH MCHC RDW Plt Count Lymph % (Auto) [place] % (Auto) Lymph # [place] # Baso # Seg Neutrophils % Seg Neuts % (Manual) Lymphocytes % (Manual) Monocytes % (Manual) Eosinophils % (Manual) Basophils % (Manual) Nucleated RBC % Seg Neutrophils # Seg Neutrophils # Man Lymphocytes # (Manual) Monocytes # (Manual) Eosinophils # (Manual) Basophils # (Manual) PT INR Fibrinogen dRVVT Confirm Interp Factor V Activity POC ABG pH POC ABG pCO2 24.7 L POC ABG pO2 152 H ABG pO2 ABG HCO3 ABG Base Excess ABG Hemoglobin Oxyhemoglobin Sodium Potassium Chloride Carbon Dioxide BUN Creatinine Glucose POC Glucose 113 H Lactic Acid Calcium Phosphorus Magnesium Direct Bilirubin AST ALT Alkaline Phosphatase Lactate Dehydrogenase Troponin T C-Reactive Protein Total Protein Albumin Prealbumin Triglycerides Cholesterol LDL Cholesterol Direct HDL Cholesterol Urine pH Urine WBC (Auto) Urine Creatinine Urine Total Protein Fluid Total Protein Vancomycin Trough Rheumatoid Factor Complement C4 Miscellaneous Test Crossmatch See Detail 09/25/16 09/25/16 09/25/16 12:05 17:44 23:47 WBC RBC Hgb Hct MCV MCH MCHC RDW Plt Count Lymph % (Auto) [place] % (Auto) Lymph # [place] # Baso # Seg Neutrophils % Seg Neuts % (Manual) Lymphocytes % (Manual) Monocytes % (Manual) Eosinophils % (Manual) Basophils % (Manual) Nucleated RBC % Seg Neutrophils # Seg Neutrophils # Man Lymphocytes # (Manual) Monocytes # (Manual) Eosinophils # (Manual) Basophils # (Manual) PT INR Fibrinogen dRVVT Confirm Interp Factor V Activity POC ABG pH POC ABG pCO2 POC ABG pO2 ABG pO2 ABG HCO3 ABG Base Excess ABG Hemoglobin Oxyhemoglobin Sodium Potassium Chloride Carbon Dioxide BUN Creatinine Glucose POC Glucose 117 H 119 H 150 H Lactic Acid Calcium Phosphorus Magnesium Direct Bilirubin AST ALT Alkaline Phosphatase Lactate Dehydrogenase Troponin T C-Reactive Protein Total Protein Albumin Prealbumin Triglycerides Cholesterol LDL Cholesterol Direct HDL Cholesterol Urine pH Urine WBC (Auto) Urine Creatinine Urine Total Protein Fluid Total Protein Vancomycin Trough Rheumatoid Factor Complement C4 Miscellaneous Test Crossmatch 09/26/16 09/26/16 09/26/16 04:25 04:25 04:25 WBC RBC 2.65 L Hgb 7.4 L Hct 21.6 L MCV MCH MCHC RDW 22.5 H Plt Count Lymph % (Auto) [place] % (Auto) Lymph # [place] # Baso # Seg Neutrophils % Seg Neuts % (Manual) Lymphocytes % (Manual) 6.0 L Monocytes % (Manual) Eosinophils % (Manual) 11.0 H Basophils % (Manual) Nucleated RBC % Seg Neutrophils # Seg Neutrophils # Man Lymphocytes # (Manual) 0.4 L Monocytes # (Manual) Eosinophils # (Manual) 0.6 H Basophils # (Manual) PT INR Fibrinogen dRVVT Confirm Interp Factor V Activity POC ABG pH POC ABG pCO2 POC ABG pO2 ABG pO2 ABG HCO3 ABG Base Excess ABG Hemoglobin Oxyhemoglobin Sodium Potassium Chloride 97.0 L Carbon Dioxide 19 L BUN 43 H Creatinine 2.6 H Glucose 130 H POC Glucose Lactic Acid 4.40 H* Calcium 6.7 L Phosphorus Magnesium Direct Bilirubin AST ALT Alkaline Phosphatase Lactate Dehydrogenase Troponin T C-Reactive Protein Total Protein Albumin Prealbumin Triglycerides Cholesterol LDL Cholesterol Direct HDL Cholesterol Urine pH Urine WBC (Auto) Urine Creatinine Urine Total Protein Fluid Total Protein Vancomycin Trough Rheumatoid Factor Complement C4 Miscellaneous Test Crossmatch 09/26/16 09/26/16 09/26/16 05:20 11:44 12:12 WBC RBC Hgb Hct MCV MCH MCHC RDW Plt Count Lymph % (Auto) [place] % (Auto) Lymph # [place] # Baso # Seg Neutrophils % Seg Neuts % (Manual) Lymphocytes % (Manual) Monocytes % (Manual) Eosinophils % (Manual) Basophils % (Manual) Nucleated RBC % Seg Neutrophils # Seg Neutrophils # Man Lymphocytes # (Manual) Monocytes # (Manual) Eosinophils # (Manual) Basophils # (Manual) PT INR Fibrinogen dRVVT Confirm Interp Factor V Activity POC ABG pH POC ABG pCO2 27.0 L POC ABG pO2 69 L ABG pO2 ABG HCO3 ABG Base Excess ABG Hemoglobin Oxyhemoglobin Sodium Potassium Chloride Carbon Dioxide BUN Creatinine Glucose POC Glucose 121 H 128 H Lactic Acid Calcium Phosphorus Magnesium Direct Bilirubin AST ALT Alkaline Phosphatase Lactate Dehydrogenase Troponin T C-Reactive Protein Total Protein Albumin Prealbumin Triglycerides Cholesterol LDL Cholesterol Direct HDL Cholesterol Urine pH Urine WBC (Auto) Urine Creatinine Urine Total Protein Fluid Total Protein Vancomycin Trough Rheumatoid Factor Complement C4 Miscellaneous Test Crossmatch 09/26/16 09/26/16 09/27/16 18:31 23:40 08:20 WBC RBC Hgb Hct MCV MCH MCHC RDW Plt Count Lymph % (Auto) [place] % (Auto) Lymph # [place] # Baso # Seg Neutrophils % Seg Neuts % (Manual) Lymphocytes % (Manual) Monocytes % (Manual) Eosinophils % (Manual) Basophils % (Manual) Nucleated RBC % Seg Neutrophils # Seg Neutrophils # Man Lymphocytes # (Manual) Monocytes # (Manual) Eosinophils # (Manual) Basophils # (Manual) PT INR Fibrinogen dRVVT Confirm Interp Factor V Activity POC ABG pH POC ABG pCO2 POC ABG pO2 ABG pO2 ABG HCO3 ABG Base Excess ABG Hemoglobin Oxyhemoglobin Sodium Potassium Chloride Carbon Dioxide BUN Creatinine Glucose POC Glucose 120 H 133 H Lactic Acid 4.10 H* Calcium Phosphorus Magnesium Direct Bilirubin AST ALT Alkaline Phosphatase Lactate Dehydrogenase Troponin T C-Reactive Protein Total Protein Albumin Prealbumin Triglycerides Cholesterol LDL Cholesterol Direct HDL Cholesterol Urine pH Urine WBC (Auto) Urine Creatinine Urine Total Protein Fluid Total Protein Vancomycin Trough Rheumatoid Factor Complement C4 Miscellaneous Test Crossmatch 09/27/16 09/27/1617 11:23 15:00 18:15 WBC RBC Hgb Hct MCV MCH MCHC RDW Plt Count Lymph % (Auto) [place] % (Auto) Lymph # [place] # Baso # Seg Neutrophils % Seg Neuts % (Manual) Lymphocytes % (Manual) Monocytes % (Manual) Eosinophils % (Manual) Basophils % (Manual) Nucleated RBC % Seg Neutrophils # Seg Neutrophils # Man Lymphocytes # (Manual) Monocytes # (Manual) Eosinophils # (Manual) Basophils # (Manual) PT INR Fibrinogen dRVVT Confirm Interp Factor V Activity POC ABG pH 7.459 H POC ABG pCO2 27.1 L POC ABG pO2 140 H ABG pO2 ABG HCO3 ABG Base Excess ABG Hemoglobin Oxyhemoglobin Sodium Potassium Chloride Carbon Dioxide BUN Creatinine Glucose POC Glucose 114 H 127 H Lactic Acid Calcium Phosphorus Magnesium Direct Bilirubin AST ALT Alkaline Phosphatase Lactate Dehydrogenase Troponin T C-Reactive Protein Total Protein Albumin Prealbumin Triglycerides Cholesterol LDL Cholesterol Direct HDL Cholesterol Urine pH Urine WBC (Auto) Urine Creatinine Urine Total Protein Fluid Total Protein Vancomycin Trough Rheumatoid Factor Complement C4 Miscellaneous Test Crossmatch 09/27/16 09/27/16 09/28/16 Unknown Unknown 03:45 WBC RBC 2.49 L Hgb 6.8 L Hct 20.7 L MCV MCH 27 L MCHC RDW 22.1 H Plt Count Lymph % (Auto) [place] % (Auto) Lymph # [place] # Baso # Seg Neutrophils % Seg Neuts % (Manual) 32.0 L Lymphocytes % (Manual) 12.0 L Monocytes % (Manual) 11.0 H Eosinophils % (Manual) 10.0 H Basophils % (Manual) Nucleated RBC % Seg Neutrophils # Seg Neutrophils # Man Lymphocytes # (Manual) 1.0 L Monocytes # (Manual) 0.9 H Eosinophils # (Manual) 0.8 H Basophils # (Manual) PT INR Fibrinogen dRVVT Confirm Interp Factor V Activity POC ABG pH POC ABG pCO2 POC ABG pO2 ABG pO2 ABG HCO3 ABG Base Excess ABG Hemoglobin Oxyhemoglobin Sodium 135 L 135 L Potassium 3.5 L Chloride 93.6 L 94.4 L Carbon Dioxide 17 L 21 L BUN 45 H 28 H Creatinine 3.3 H 2.5 H Glucose 106 H POC Glucose Lactic Acid Calcium 7.3 L 7.1 L Phosphorus Magnesium Direct Bilirubin AST ALT Alkaline Phosphatase Lactate Dehydrogenase Troponin T C-Reactive Protein Total Protein Albumin Prealbumin Triglycerides Cholesterol LDL Cholesterol Direct HDL Cholesterol Urine pH Urine WBC (Auto) Urine Creatinine Urine Total Protein Fluid Total Protein Vancomycin Trough Rheumatoid Factor Complement C4 Miscellaneous Test Crossmatch 09/28/16 09/28/16 09/28/16 03:45 07:25 11:58 WBC 13.3 H RBC 3.01 L Hgb 8.4 L Hct 25.0 L MCV MCH MCHC RDW 20.5 H Plt Count 128 L Lymph % (Auto) [place] % (Auto) Lymph # [place] # Baso # Seg Neutrophils % Seg Neuts % (Manual) Lymphocytes % (Manual) 7.0 L Monocytes % (Manual) Eosinophils % (Manual) 6.0 H Basophils % (Manual) Nucleated RBC % Seg Neutrophils # Seg Neutrophils # Man Lymphocytes # (Manual) 0.9 L Monocytes # (Manual) Eosinophils # (Manual) 0.8 H Basophils # (Manual) PT INR Fibrinogen dRVVT Confirm Interp Factor V Activity POC ABG pH POC ABG pCO2 POC ABG pO2 ABG pO2 ABG HCO3 ABG Base Excess ABG Hemoglobin Oxyhemoglobin Sodium Potassium Chloride Carbon Dioxide BUN Creatinine Glucose POC Glucose 121 H Lactic Acid 4.50 H* Calcium Phosphorus Magnesium Direct Bilirubin AST ALT Alkaline Phosphatase Lactate Dehydrogenase Troponin T C-Reactive Protein Total Protein Albumin Prealbumin Triglycerides Cholesterol LDL Cholesterol Direct HDL Cholesterol Urine pH Urine WBC (Auto) Urine Creatinine Urine Total Protein Fluid Total Protein Vancomycin Trough Rheumatoid Factor Complement C4 Miscellaneous Test Crossmatch 09/29/16 09/29/16 09/29/16 06:45 06:45 06:45 WBC 14.9 H RBC 2.74 L Hgb 7.6 L Hct 23.2 L MCV MCH MCHC RDW 20.5 H Plt Count 81 L Lymph % (Auto) [place] % (Auto) Lymph # [place] # Baso # Seg Neutrophils % Seg Neuts % (Manual) 81.0 H Lymphocytes % (Manual) 4.0 L Monocytes % (Manual) Eosinophils % (Manual) Basophils % (Manual) Nucleated RBC % Seg Neutrophils # Seg Neutrophils # Man 12.1 H Lymphocytes # (Manual) 0.6 L Monocytes # (Manual) Eosinophils # (Manual) Basophils # (Manual) PT INR Fibrinogen dRVVT Confirm Interp Factor V Activity POC ABG pH POC ABG pCO2 POC ABG pO2 ABG pO2 ABG HCO3 ABG Base Excess ABG Hemoglobin Oxyhemoglobin Sodium 133 L Potassium 3.4 L Chloride 92.5 L Carbon Dioxide 21 L BUN 33 H Creatinine 3.0 H Glucose POC Glucose Lactic Acid Calcium 6.6 L Phosphorus Magnesium 1.40 L Direct Bilirubin 0.9 H AST ALT Alkaline Phosphatase Lactate Dehydrogenase Troponin T C-Reactive Protein Total Protein 4.3 L Albumin 1.3 L Prealbumin Triglycerides Cholesterol LDL Cholesterol Direct HDL Cholesterol Urine pH Urine WBC (Auto) Urine Creatinine Urine Total Protein Fluid Total Protein Vancomycin Trough Rheumatoid Factor Complement C4 Miscellaneous Test Crossmatch 09/29/16 09/29/16 09/30/16 17:52 20:12 00:07 WBC RBC Hgb Hct MCV MCH MCHC RDW Plt Count Lymph % (Auto) [place] % (Auto) Lymph # [place] # Baso # Seg Neutrophils % Seg Neuts % (Manual) Lymphocytes % (Manual) Monocytes % (Manual) Eosinophils % (Manual) Basophils % (Manual) Nucleated RBC % Seg Neutrophils # Seg Neutrophils # Man Lymphocytes # (Manual) Monocytes # (Manual) Eosinophils # (Manual) Basophils # (Manual) PT INR Fibrinogen dRVVT Confirm Interp Factor V Activity POC ABG pH POC ABG pCO2 POC ABG pO2 ABG pO2 ABG HCO3 ABG Base Excess ABG Hemoglobin Oxyhemoglobin Sodium Potassium Chloride Carbon Dioxide BUN Creatinine Glucose POC Glucose 50 L 51 L Lactic Acid Calcium Phosphorus Magnesium Direct Bilirubin AST ALT Alkaline Phosphatase Lactate Dehydrogenase Troponin T 0.204 H* C-Reactive Protein Total Protein Albumin Prealbumin Triglycerides Cholesterol 31 L LDL Cholesterol Direct 4 L HDL Cholesterol 3 L Urine pH Urine WBC (Auto) Urine Creatinine Urine Total Protein Fluid Total Protein Vancomycin Trough Rheumatoid Factor Complement C4 Miscellaneous Test Crossmatch 09/30/16 09/30/16 09/30/16 01:30 05:15 06:10 WBC RBC Hgb Hct MCV MCH MCHC RDW Plt Count Lymph % (Auto) [place] % (Auto) Lymph # [place] # Baso # Seg Neutrophils % Seg Neuts % (Manual) Lymphocytes % (Manual) Monocytes % (Manual) Eosinophils % (Manual) Basophils % (Manual) Nucleated RBC % Seg Neutrophils # Seg Neutrophils # Man Lymphocytes # (Manual) Monocytes # (Manual) Eosinophils # (Manual) Basophils # (Manual) PT INR Fibrinogen dRVVT Confirm Interp Factor V Activity POC ABG pH POC ABG pCO2 POC ABG pO2 ABG pO2 ABG HCO3 ABG Base Excess ABG Hemoglobin Oxyhemoglobin Sodium 133 L Potassium 3.2 L Chloride 93.2 L Carbon Dioxide 19 L BUN 36 H Creatinine 3.2 H Glucose 104 H POC Glucose 167 H 146 H Lactic Acid Calcium 6.4 L Phosphorus Magnesium 1.60 L Direct Bilirubin AST ALT Alkaline Phosphatase Lactate Dehydrogenase Troponin T C-Reactive Protein Total Protein Albumin Prealbumin Triglycerides Cholesterol LDL Cholesterol Direct HDL Cholesterol Urine pH Urine WBC (Auto) Urine Creatinine Urine Total Protein Fluid Total Protein Vancomycin Trough Rheumatoid Factor Complement C4 Miscellaneous Test Crossmatch 09/30/16 09/30/16 09/30/16 11:26 13:39 18:38 WBC RBC Hgb Hct MCV MCH MCHC RDW Plt Count Lymph % (Auto) [place] % (Auto) Lymph # [place] # Baso # Seg Neutrophils % Seg Neuts % (Manual) Lymphocytes % (Manual) Monocytes % (Manual) Eosinophils % (Manual) Basophils % (Manual) Nucleated RBC % Seg Neutrophils # Seg Neutrophils # Man Lymphocytes # (Manual) Monocytes # (Manual) Eosinophils # (Manual) Basophils # (Manual) PT INR Fibrinogen dRVVT Confirm Interp Factor V Activity POC ABG pH 7.479 H POC ABG pCO2 29.8 L POC ABG pO2 117 H ABG pO2 ABG HCO3 ABG Base Excess ABG Hemoglobin Oxyhemoglobin Sodium Potassium Chloride Carbon Dioxide BUN Creatinine Glucose POC Glucose 140 H 122 H Lactic Acid Calcium Phosphorus Magnesium Direct Bilirubin AST ALT Alkaline Phosphatase Lactate Dehydrogenase Troponin T C-Reactive Protein Total Protein Albumin Prealbumin Triglycerides Cholesterol LDL Cholesterol Direct HDL Cholesterol Urine pH Urine WBC (Auto) Urine Creatinine Urine Total Protein Fluid Total Protein Vancomycin Trough Rheumatoid Factor Complement C4 Miscellaneous Test Crossmatch 10/01/16 10/01/16 10/01/16 06:00 06:00 12:37 WBC 12.6 H RBC 2.75 L Hgb 7.3 L Hct 23.3 L MCV MCH 27 L MCHC RDW 20.6 H Plt Count 72 L Lymph % (Auto) [place] % (Auto) Lymph # [place] # Baso # Seg Neutrophils % Seg Neuts % (Manual) 31.0 L Lymphocytes % (Manual) 8.0 L Monocytes % (Manual) Eosinophils % (Manual) Basophils % (Manual) Nucleated RBC % 3.0 H Seg Neutrophils # Seg Neutrophils # Man Lymphocytes # (Manual) 1.0 L Monocytes # (Manual) Eosinophils # (Manual) Basophils # (Manual) PT INR Fibrinogen dRVVT Confirm Interp Factor V Activity POC ABG pH POC ABG pCO2 POC ABG pO2 ABG pO2 ABG HCO3 ABG Base Excess ABG Hemoglobin Oxyhemoglobin Sodium 127 L Potassium Chloride 86.8 L Carbon Dioxide 20 L BUN 42 H Creatinine 3.5 H Glucose POC Glucose 65 L Lactic Acid Calcium 7.0 L Phosphorus Magnesium Direct Bilirubin AST ALT Alkaline Phosphatase Lactate Dehydrogenase Troponin T C-Reactive Protein Total Protein Albumin Prealbumin Triglycerides Cholesterol LDL Cholesterol Direct HDL Cholesterol Urine pH Urine WBC (Auto) Urine Creatinine Urine Total Protein Fluid Total Protein Vancomycin Trough Rheumatoid Factor Complement C4 Miscellaneous Test Crossmatch 10/01/16 10/01/16 10/02/16 17:39 23:32 00:59 WBC RBC Hgb Hct MCV MCH MCHC RDW Plt Count Lymph % (Auto) [place] % (Auto) Lymph # [place] # Baso # Seg Neutrophils % Seg Neuts % (Manual) Lymphocytes % (Manual) Monocytes % (Manual) Eosinophils % (Manual) Basophils % (Manual) Nucleated RBC % Seg Neutrophils # Seg Neutrophils # Man Lymphocytes # (Manual) Monocytes # (Manual) Eosinophils # (Manual) Basophils # (Manual) PT INR Fibrinogen dRVVT Confirm Interp Factor V Activity POC ABG pH POC ABG pCO2 POC ABG pO2 ABG pO2 ABG HCO3 ABG Base Excess ABG Hemoglobin Oxyhemoglobin Sodium Potassium Chloride Carbon Dioxide BUN Creatinine Glucose POC Glucose 107 H 52 L 145 H Lactic Acid Calcium Phosphorus Magnesium Direct Bilirubin AST ALT Alkaline Phosphatase Lactate Dehydrogenase Troponin T C-Reactive Protein Total Protein Albumin Prealbumin Triglycerides Cholesterol LDL Cholesterol Direct HDL Cholesterol Urine pH Urine WBC (Auto) Urine Creatinine Urine Total Protein Fluid Total Protein Vancomycin Trough Rheumatoid Factor Complement C4 Miscellaneous Test Crossmatch 10/02/16 10/02/16 10/02/16 10:30 10:50 10:50 WBC 14.7 H RBC 2.76 L Hgb 7.4 L Hct 23.6 L MCV MCH 27 L MCHC RDW 20.2 H Plt Count 79 L Lymph % (Auto) [place] % (Auto) Lymph # [place] # Baso # Seg Neutrophils % Seg Neuts % (Manual) 86.0 H Lymphocytes % (Manual) 6.0 L Monocytes % (Manual) Eosinophils % (Manual) Basophils % (Manual) Nucleated RBC % Seg Neutrophils # Seg Neutrophils # Man 12.6 H Lymphocytes # (Manual) 0.9 L Monocytes # (Manual) Eosinophils # (Manual) Basophils # (Manual) PT INR Fibrinogen dRVVT Confirm Interp Factor V Activity POC ABG pH 7.486 H POC ABG pCO2 30.1 L POC ABG pO2 108 H ABG pO2 ABG HCO3 ABG Base Excess ABG Hemoglobin Oxyhemoglobin Sodium 131 L Potassium 3.4 L Chloride 89.9 L Carbon Dioxide BUN 26 H Creatinine 2.6 H Glucose POC Glucose Lactic Acid Calcium 7.0 L Phosphorus Magnesium Direct Bilirubin AST ALT Alkaline Phosphatase Lactate Dehydrogenase Troponin T C-Reactive Protein Total Protein Albumin Prealbumin Triglycerides Cholesterol LDL Cholesterol Direct HDL Cholesterol Urine pH Urine WBC (Auto) Urine Creatinine Urine Total Protein Fluid Total Protein Vancomycin Trough Rheumatoid Factor Complement C4 Miscellaneous Test Crossmatch 10/02/16 10/03/16 10/03/16 23:45 00:45 05:10 WBC 12.9 H RBC 2.77 L Hgb 7.6 L Hct 23.7 L MCV MCH 27 L MCHC RDW 19.7 H Plt Count 89 L Lymph % (Auto) [place] % (Auto) Lymph # [place] # Baso # Seg Neutrophils % Seg Neuts % (Manual) Lymphocytes % (Manual) 8.0 L Monocytes % (Manual) Eosinophils % (Manual) Basophils % (Manual) Nucleated RBC % Seg Neutrophils # 11.9 H Seg Neutrophils # Man Lymphocytes # (Manual) 1.0 L Monocytes # (Manual) Eosinophils # (Manual) Basophils # (Manual) PT INR Fibrinogen dRVVT Confirm Interp Factor V Activity POC ABG pH POC ABG pCO2 POC ABG pO2 ABG pO2 ABG HCO3 ABG Base Excess ABG Hemoglobin Oxyhemoglobin Sodium Potassium Chloride Carbon Dioxide BUN Creatinine Glucose POC Glucose 55 L 199 H Lactic Acid Calcium Phosphorus Magnesium Direct Bilirubin AST ALT Alkaline Phosphatase Lactate Dehydrogenase Troponin T C-Reactive Protein Total Protein Albumin Prealbumin Triglycerides Cholesterol LDL Cholesterol Direct HDL Cholesterol Urine pH Urine WBC (Auto) Urine Creatinine Urine Total Protein Fluid Total Protein Vancomycin Trough Rheumatoid Factor Complement C4 Miscellaneous Test Crossmatch 10/03/16 10/03/16 10/03/16 05:10 12:14 13:18 WBC RBC Hgb Hct MCV MCH MCHC RDW Plt Count Lymph % (Auto) [place] % (Auto) Lymph # [place] # Baso # Seg Neutrophils % Seg Neuts % (Manual) Lymphocytes % (Manual) Monocytes % (Manual) Eosinophils % (Manual) Basophils % (Manual) Nucleated RBC % Seg Neutrophils # Seg Neutrophils # Man Lymphocytes # (Manual) Monocytes # (Manual) Eosinophils # (Manual) Basophils # (Manual) PT INR Fibrinogen dRVVT Confirm Interp Factor V Activity POC ABG pH POC ABG pCO2 POC ABG pO2 ABG pO2 ABG HCO3 ABG Base Excess ABG Hemoglobin Oxyhemoglobin Sodium 129 L Potassium 3.3 L Chloride 88.8 L Carbon Dioxide 20 L BUN 29 H Creatinine 2.8 H Glucose POC Glucose 68 L 127 H Lactic Acid Calcium 7.2 L Phosphorus Magnesium Direct Bilirubin AST ALT Alkaline Phosphatase Lactate Dehydrogenase Troponin T C-Reactive Protein Total Protein Albumin Prealbumin Triglycerides Cholesterol LDL Cholesterol Direct HDL Cholesterol Urine pH Urine WBC (Auto) Urine Creatinine Urine Total Protein Fluid Total Protein Vancomycin Trough Rheumatoid Factor Complement C4 Miscellaneous Test Crossmatch 10/03/16 10/03/16 10/03/16 14:42 18:21 19:09 WBC RBC Hgb Hct MCV MCH MCHC RDW Plt Count Lymph % (Auto) [place] % (Auto) Lymph # [place] # Baso # Seg Neutrophils % Seg Neuts % (Manual) Lymphocytes % (Manual) Monocytes % (Manual) Eosinophils % (Manual) Basophils % (Manual) Nucleated RBC % Seg Neutrophils # Seg Neutrophils # Man Lymphocytes # (Manual) Monocytes # (Manual) Eosinophils # (Manual) Basophils # (Manual) PT INR Fibrinogen dRVVT Confirm Interp Factor V Activity POC ABG pH 7.499 H POC ABG pCO2 28.4 L POC ABG pO2 44 L ABG pO2 ABG HCO3 ABG Base Excess ABG Hemoglobin Oxyhemoglobin Sodium Potassium Chloride Carbon Dioxide BUN Creatinine Glucose POC Glucose 64 L 205 H Lactic Acid Calcium Phosphorus Magnesium Direct Bilirubin AST ALT Alkaline Phosphatase Lactate Dehydrogenase Troponin T C-Reactive Protein Total Protein Albumin Prealbumin Triglycerides Cholesterol LDL Cholesterol Direct HDL Cholesterol Urine pH Urine WBC (Auto) Urine Creatinine Urine Total Protein Fluid Total Protein Vancomycin Trough Rheumatoid Factor Complement C4 Miscellaneous Test Crossmatch 10/03/16 10/04/16 10/04/16 23:33 04:18 06:30 WBC RBC 2.54 L Hgb 7.1 L Hct 21.7 L MCV MCH MCHC RDW 19.5 H Plt Count 76 L Lymph % (Auto) [place] % (Auto) Lymph # [place] # Baso # Seg Neutrophils % Seg Neuts % (Manual) 88.0 H Lymphocytes % (Manual) 6.0 L Monocytes % (Manual) Eosinophils % (Manual) Basophils % (Manual) Nucleated RBC % Seg Neutrophils # Seg Neutrophils # Man 8.8 H Lymphocytes # (Manual) 0.6 L Monocytes # (Manual) Eosinophils # (Manual) Basophils # (Manual) PT INR Fibrinogen dRVVT Confirm Interp Factor V Activity POC ABG pH 7.461 H POC ABG pCO2 33.6 L POC ABG pO2 211 H ABG pO2 ABG HCO3 ABG Base Excess ABG Hemoglobin Oxyhemoglobin Sodium Potassium Chloride Carbon Dioxide BUN Creatinine Glucose POC Glucose 136 H Lactic Acid Calcium Phosphorus Magnesium Direct Bilirubin AST ALT Alkaline Phosphatase Lactate Dehydrogenase Troponin T C-Reactive Protein Total Protein Albumin Prealbumin Triglycerides Cholesterol LDL Cholesterol Direct HDL Cholesterol Urine pH Urine WBC (Auto) Urine Creatinine Urine Total Protein Fluid Total Protein Vancomycin Trough Rheumatoid Factor Complement C4 Miscellaneous Test Crossmatch 10/04/16 10/04/16 10/04/16 06:30 11:45 17:54 WBC RBC Hgb Hct MCV MCH MCHC RDW Plt Count Lymph % (Auto) [place] % (Auto) Lymph # [place] # Baso # Seg Neutrophils % Seg Neuts % (Manual) Lymphocytes % (Manual) Monocytes % (Manual) Eosinophils % (Manual) Basophils % (Manual) Nucleated RBC % Seg Neutrophils # Seg Neutrophils # Man Lymphocytes # (Manual) Monocytes # (Manual) Eosinophils # (Manual) Basophils # (Manual) PT INR Fibrinogen dRVVT Confirm Interp Factor V Activity POC ABG pH POC ABG pCO2 POC ABG pO2 ABG pO2 ABG HCO3 ABG Base Excess ABG Hemoglobin Oxyhemoglobin Sodium 128 L Potassium Chloride 87.4 L Carbon Dioxide 20 L BUN 34 H Creatinine 2.9 H Glucose 127 H POC Glucose 158 H 160 H Lactic Acid Calcium 7.4 L Phosphorus Magnesium Direct Bilirubin AST ALT Alkaline Phosphatase Lactate Dehydrogenase Troponin T C-Reactive Protein Total Protein Albumin Prealbumin Triglycerides Cholesterol LDL Cholesterol Direct HDL Cholesterol Urine pH Urine WBC (Auto) Urine Creatinine Urine Total Protein Fluid Total Protein Vancomycin Trough Rheumatoid Factor Complement C4 Miscellaneous Test Crossmatch 10/04/16 10/05/16 10/05/16 23:25 04:30 05:00 WBC RBC 2.64 L Hgb 7.5 L Hct 22.6 L MCV MCH MCHC RDW 19.3 H Plt Count 80 L Lymph % (Auto) [place] % (Auto) Lymph # [place] # Baso # Seg Neutrophils % Seg Neuts % (Manual) Lymphocytes % (Manual) 12.0 L Monocytes % (Manual) Eosinophils % (Manual) Basophils % (Manual) Nucleated RBC % Seg Neutrophils # Seg Neutrophils # Man Lymphocytes # (Manual) Monocytes # (Manual) Eosinophils # (Manual) Basophils # (Manual) PT INR Fibrinogen dRVVT Confirm Interp Factor V Activity POC ABG pH 7.475 H POC ABG pCO2 33.3 L POC ABG pO2 140 H ABG pO2 ABG HCO3 ABG Base Excess ABG Hemoglobin Oxyhemoglobin Sodium Potassium Chloride Carbon Dioxide BUN Creatinine Glucose POC Glucose 141 H Lactic Acid Calcium Phosphorus Magnesium Direct Bilirubin AST ALT Alkaline Phosphatase Lactate Dehydrogenase Troponin T C-Reactive Protein Total Protein Albumin Prealbumin Triglycerides Cholesterol LDL Cholesterol Direct HDL Cholesterol Urine pH Urine WBC (Auto) Urine Creatinine Urine Total Protein Fluid Total Protein Vancomycin Trough Rheumatoid Factor Complement C4 Miscellaneous Test Crossmatch 10/05/16 10/05/16 10/05/16 05:00 05:09 12:58 WBC RBC Hgb Hct MCV MCH MCHC RDW Plt Count Lymph % (Auto) [place] % (Auto) Lymph # [place] # Baso # Seg Neutrophils % Seg Neuts % (Manual) Lymphocytes % (Manual) Monocytes % (Manual) Eosinophils % (Manual) Basophils % (Manual) Nucleated RBC % Seg Neutrophils # Seg Neutrophils # Man Lymphocytes # (Manual) Monocytes # (Manual) Eosinophils # (Manual) Basophils # (Manual) PT INR Fibrinogen dRVVT Confirm Interp Factor V Activity POC ABG pH POC ABG pCO2 POC ABG pO2 ABG pO2 ABG HCO3 ABG Base Excess ABG Hemoglobin Oxyhemoglobin Sodium 131 L Potassium Chloride 94.0 L Carbon Dioxide 20 L BUN 22 H Creatinine 2.0 H Glucose 123 H POC Glucose 166 H 179 H Lactic Acid Calcium 7.7 L Phosphorus 2.20 L D Magnesium Direct Bilirubin AST ALT Alkaline Phosphatase Lactate Dehydrogenase Troponin T C-Reactive Protein Total Protein Albumin Prealbumin Triglycerides Cholesterol LDL Cholesterol Direct HDL Cholesterol Urine pH Urine WBC (Auto) Urine Creatinine Urine Total Protein Fluid Total Protein Vancomycin Trough Rheumatoid Factor Complement C4 Miscellaneous Test Crossmatch 10/05/16 10/05/16 10/05/16 15:50 18:53 23:12 WBC RBC Hgb Hct MCV MCH MCHC RDW Plt Count Lymph % (Auto) [place] % (Auto) Lymph # [place] # Baso # Seg Neutrophils % Seg Neuts % (Manual) Lymphocytes % (Manual) Monocytes % (Manual) Eosinophils % (Manual) Basophils % (Manual) Nucleated RBC % Seg Neutrophils # Seg Neutrophils # Man Lymphocytes # (Manual) Monocytes # (Manual) Eosinophils # (Manual) Basophils # (Manual) PT INR Fibrinogen dRVVT Confirm Interp Factor V Activity POC ABG pH POC ABG pCO2 POC ABG pO2 ABG pO2 ABG HCO3 ABG Base Excess ABG Hemoglobin Oxyhemoglobin Sodium Potassium Chloride Carbon Dioxide BUN Creatinine Glucose POC Glucose 150 H 164 H Lactic Acid Calcium Phosphorus Magnesium Direct Bilirubin AST ALT Alkaline Phosphatase Lactate Dehydrogenase Troponin T C-Reactive Protein Total Protein Albumin Prealbumin Triglycerides Cholesterol LDL Cholesterol Direct HDL Cholesterol Urine pH Urine WBC (Auto) Urine Creatinine Urine Total Protein Fluid Total Protein Vancomycin Trough Rheumatoid Factor Complement C4 Miscellaneous Test Crossmatch See Detail 10/06/16 10/06/16 10/06/16 03:50 03:50 04:53 WBC RBC 3.00 L Hgb 8.6 L Hct 25.8 L MCV MCH MCHC RDW 17.9 H Plt Count 65 L Lymph % (Auto) [place] % (Auto) Lymph # [place] # Baso # Seg Neutrophils % Seg Neuts % (Manual) 30.0 L Lymphocytes % (Manual) 5.0 L Monocytes % (Manual) Eosinophils % (Manual) Basophils % (Manual) Nucleated RBC % Seg Neutrophils # Seg Neutrophils # Man Lymphocytes # (Manual) 0.4 L Monocytes # (Manual) Eosinophils # (Manual) Basophils # (Manual) PT INR Fibrinogen dRVVT Confirm Interp Factor V Activity POC ABG pH 7.310 L POC ABG pCO2 49.0 H POC ABG pO2 ABG pO2 ABG HCO3 ABG Base Excess ABG Hemoglobin Oxyhemoglobin Sodium 133 L Potassium Chloride 95.9 L Carbon Dioxide BUN 26 H Creatinine 2.0 H Glucose 116 H POC Glucose Lactic Acid Calcium 7.8 L Phosphorus Magnesium Direct Bilirubin AST ALT Alkaline Phosphatase Lactate Dehydrogenase Troponin T C-Reactive Protein Total Protein Albumin Prealbumin Triglycerides Cholesterol LDL Cholesterol Direct HDL Cholesterol Urine pH Urine WBC (Auto) Urine Creatinine Urine Total Protein Fluid Total Protein Vancomycin Trough Rheumatoid Factor Complement C4 Miscellaneous Test Crossmatch 10/06/16 10/06/16 10/06/16 05:23 11:52 18:34 WBC RBC Hgb Hct MCV MCH MCHC RDW Plt Count Lymph % (Auto) [place] % (Auto) Lymph # [place] # Baso # Seg Neutrophils % Seg Neuts % (Manual) Lymphocytes % (Manual) Monocytes % (Manual) Eosinophils % (Manual) Basophils % (Manual) Nucleated RBC % Seg Neutrophils # Seg Neutrophils # Man Lymphocytes # (Manual) Monocytes # (Manual) Eosinophils # (Manual) Basophils # (Manual) PT INR Fibrinogen dRVVT Confirm Interp Factor V Activity POC ABG pH POC ABG pCO2 POC ABG pO2 ABG pO2 ABG HCO3 ABG Base Excess ABG Hemoglobin Oxyhemoglobin Sodium Potassium Chloride Carbon Dioxide BUN Creatinine Glucose POC Glucose 126 H 116 H 129 H Lactic Acid Calcium Phosphorus Magnesium Direct Bilirubin AST ALT Alkaline Phosphatase Lactate Dehydrogenase Troponin T C-Reactive Protein Total Protein Albumin Prealbumin Triglycerides Cholesterol LDL Cholesterol Direct HDL Cholesterol Urine pH Urine WBC (Auto) Urine Creatinine Urine Total Protein Fluid Total Protein Vancomycin Trough Rheumatoid Factor Complement C4 Miscellaneous Test Crossmatch 10/07/16 10/07/16 10/07/16 03:45 05:00 10:00 WBC 17.0 H RBC 2.68 L Hgb 7.3 L Hct 25.3 L MCV MCH 27 L MCHC 29 L RDW 19.6 H Plt Count 74 L Lymph % (Auto) [place] % (Auto) Lymph # [place] # Baso # Seg Neutrophils % Seg Neuts % (Manual) Lymphocytes % (Manual) 12.0 L Monocytes % (Manual) Eosinophils % (Manual) Basophils % (Manual) Nucleated RBC % 4.0 H Seg Neutrophils # Seg Neutrophils # Man 10.7 H Lymphocytes # (Manual) Monocytes # (Manual) Eosinophils # (Manual) Basophils # (Manual) PT INR Fibrinogen dRVVT Confirm Interp Factor V Activity POC ABG pH POC ABG pCO2 POC ABG pO2 ABG pO2 ABG HCO3 ABG Base Excess ABG Hemoglobin Oxyhemoglobin Sodium 130 L Potassium 3.2 L Chloride 93.9 L Carbon Dioxide 20 L BUN 44 H Creatinine 2.7 H Glucose 129 H POC Glucose Lactic Acid Calcium 7.4 L Phosphorus Magnesium Direct Bilirubin AST ALT 6 L Alkaline Phosphatase 195 H Lactate Dehydrogenase Troponin T C-Reactive Protein Total Protein 4.9 L Albumin 1.0 L Prealbumin Triglycerides Cholesterol LDL Cholesterol Direct HDL Cholesterol Urine pH Urine WBC (Auto) Urine Creatinine Urine Total Protein Fluid Total Protein Vancomycin Trough Rheumatoid Factor Complement C4 Miscellaneous Test Flexitest 1 H Crossmatch 10/07/16 10/07/16 10/07/16 10:00 11:24 18:10 WBC RBC Hgb Hct MCV MCH MCHC RDW Plt Count Lymph % (Auto) [place] % (Auto) Lymph # [place] # Baso # Seg Neutrophils % Seg Neuts % (Manual) Lymphocytes % (Manual) Monocytes % (Manual) Eosinophils % (Manual) Basophils % (Manual) Nucleated RBC % Seg Neutrophils # Seg Neutrophils # Man Lymphocytes # (Manual) Monocytes # (Manual) Eosinophils # (Manual) Basophils # (Manual) PT INR Fibrinogen dRVVT Confirm Interp Factor V Activity POC ABG pH POC ABG pCO2 POC ABG pO2 ABG pO2 ABG HCO3 ABG Base Excess ABG Hemoglobin Oxyhemoglobin Sodium Potassium Chloride Carbon Dioxide BUN Creatinine Glucose POC Glucose 116 H 130 H Lactic Acid Calcium Phosphorus Magnesium Direct Bilirubin AST ALT Alkaline Phosphatase Lactate Dehydrogenase Troponin T C-Reactive Protein 19.40 H Total Protein Albumin Prealbumin Triglycerides Cholesterol LDL Cholesterol Direct HDL Cholesterol Urine pH Urine WBC (Auto) Urine Creatinine Urine Total Protein Fluid Total Protein Vancomycin Trough Rheumatoid Factor Complement C4 Miscellaneous Test Crossmatch 10/07/16 10/08/16 10/08/16 18:30 00:00 04:00 WBC RBC Hgb Hct MCV MCH MCHC RDW Plt Count Lymph % (Auto) [place] % (Auto) Lymph # [place] # Baso # Seg Neutrophils % Seg Neuts % (Manual) Lymphocytes % (Manual) Monocytes % (Manual) Eosinophils % (Manual) Basophils % (Manual) Nucleated RBC % Seg Neutrophils # Seg Neutrophils # Man Lymphocytes # (Manual) Monocytes # (Manual) Eosinophils # (Manual) Basophils # (Manual) PT INR Fibrinogen dRVVT Confirm Interp Factor V Activity POC ABG pH POC ABG pCO2 POC ABG pO2 ABG pO2 ABG HCO3 ABG Base Excess ABG Hemoglobin Oxyhemoglobin Sodium 132 L Potassium 3.3 L Chloride 93.6 L Carbon Dioxide 17 L BUN 59 H Creatinine 2.7 H Glucose 121 H POC Glucose 122 H Lactic Acid Calcium 7.6 L Phosphorus Magnesium Direct Bilirubin AST ALT Alkaline Phosphatase Lactate Dehydrogenase Troponin T C-Reactive Protein Total Protein Albumin Prealbumin Triglycerides Cholesterol LDL Cholesterol Direct HDL Cholesterol Urine pH Urine WBC (Auto) > 182.0 H Urine Creatinine Urine Total Protein Fluid Total Protein Vancomycin Trough Rheumatoid Factor Complement C4 Miscellaneous Test Crossmatch 10/08/16 10/08/16 10/08/16 04:30 05:30 11:51 WBC RBC 5.15 H Hgb 14.4 H D Hct 44.5 H D MCV MCH MCHC RDW 19.5 H Plt Count 56 L Lymph % (Auto) [place] % (Auto) Lymph # [place] # Baso # Seg Neutrophils % Seg Neuts % (Manual) 24.0 L Lymphocytes % (Manual) 8.0 L Monocytes % (Manual) Eosinophils % (Manual) Basophils % (Manual) Nucleated RBC % 9.0 H Seg Neutrophils # Seg Neutrophils # Man Lymphocytes # (Manual) 0.7 L Monocytes # (Manual) Eosinophils # (Manual) Basophils # (Manual) PT INR Fibrinogen dRVVT Confirm Interp Factor V Activity POC ABG pH POC ABG pCO2 POC ABG pO2 ABG pO2 ABG HCO3 ABG Base Excess ABG Hemoglobin Oxyhemoglobin Sodium Potassium Chloride Carbon Dioxide BUN Creatinine Glucose POC Glucose 125 H 150 H Lactic Acid Calcium Phosphorus Magnesium Direct Bilirubin AST ALT Alkaline Phosphatase Lactate Dehydrogenase Troponin T C-Reactive Protein Total Protein Albumin Prealbumin Triglycerides Cholesterol LDL Cholesterol Direct HDL Cholesterol Urine pH Urine WBC (Auto) Urine Creatinine Urine Total Protein Fluid Total Protein Vancomycin Trough Rheumatoid Factor Complement C4 Miscellaneous Test Crossmatch 10/08/16 10/08/16 10/08/16 12:49 17:07 19:30 WBC RBC Hgb 7.1 L D Hct 22.4 L D MCV MCH MCHC RDW Plt Count Lymph % (Auto) [place] % (Auto) Lymph # [place] # Baso # Seg Neutrophils % Seg Neuts % (Manual) Lymphocytes % (Manual) Monocytes % (Manual) Eosinophils % (Manual) Basophils % (Manual) Nucleated RBC % Seg Neutrophils # Seg Neutrophils # Man Lymphocytes # (Manual) Monocytes # (Manual) Eosinophils # (Manual) Basophils # (Manual) PT INR Fibrinogen dRVVT Confirm Interp Factor V Activity POC ABG pH POC ABG pCO2 28.2 L POC ABG pO2 111 H ABG pO2 ABG HCO3 ABG Base Excess ABG Hemoglobin Oxyhemoglobin Sodium Potassium Chloride Carbon Dioxide BUN Creatinine Glucose POC Glucose 145 H Lactic Acid Calcium Phosphorus Magnesium Direct Bilirubin AST ALT Alkaline Phosphatase Lactate Dehydrogenase Troponin T C-Reactive Protein Total Protein Albumin Prealbumin Triglycerides Cholesterol LDL Cholesterol Direct HDL Cholesterol Urine pH Urine WBC (Auto) Urine Creatinine Urine Total Protein Fluid Total Protein Vancomycin Trough Rheumatoid Factor Complement C4 Miscellaneous Test Crossmatch 10/08/16 10/09/16 10/09/16 19:30 03:45 03:45 WBC 12.6 H RBC 2.36 L Hgb 6.7 L Hct 21.1 L MCV MCH MCHC RDW 19.5 H Plt Count 75 L Lymph % (Auto) [place] % (Auto) Lymph # [place] # Baso # Seg Neutrophils % Seg Neuts % (Manual) Lymphocytes % (Manual) Monocytes % (Manual) 10.0 H Eosinophils % (Manual) Basophils % (Manual) Nucleated RBC % 3.0 H Seg Neutrophils # Seg Neutrophils # Man Lymphocytes # (Manual) Monocytes # (Manual) 1.3 H Eosinophils # (Manual) Basophils # (Manual) PT 18.0 H INR 1.41 H Fibrinogen dRVVT Confirm Interp Factor V Activity POC ABG pH POC ABG pCO2 POC ABG pO2 ABG pO2 ABG HCO3 ABG Base Excess ABG Hemoglobin Oxyhemoglobin Sodium 135 L Potassium Chloride Carbon Dioxide 17 L BUN 81 H Creatinine 3.2 H Glucose 109 H POC Glucose Lactic Acid Calcium 7.4 L Phosphorus 4.60 H D Magnesium Direct Bilirubin AST ALT Alkaline Phosphatase Lactate Dehydrogenase Troponin T C-Reactive Protein Total Protein Albumin Prealbumin Triglycerides Cholesterol LDL Cholesterol Direct HDL Cholesterol Urine pH Urine WBC (Auto) Urine Creatinine Urine Total Protein Fluid Total Protein Vancomycin Trough Rheumatoid Factor Complement C4 Miscellaneous Test Crossmatch 10/09/16 10/09/16 10/09/16 03:45 05:14 07:20 WBC RBC Hgb Hct MCV MCH MCHC RDW Plt Count Lymph % (Auto) [place] % (Auto) Lymph # [place] # Baso # Seg Neutrophils % Seg Neuts % (Manual) Lymphocytes % (Manual) Monocytes % (Manual) Eosinophils % (Manual) Basophils % (Manual) Nucleated RBC % Seg Neutrophils # Seg Neutrophils # Man Lymphocytes # (Manual) Monocytes # (Manual) Eosinophils # (Manual) Basophils # (Manual) PT 19.0 H INR 1.51 H Fibrinogen dRVVT Confirm Interp Factor V Activity POC ABG pH POC ABG pCO2 POC ABG pO2 ABG pO2 ABG HCO3 ABG Base Excess ABG Hemoglobin Oxyhemoglobin Sodium Potassium Chloride Carbon Dioxide BUN Creatinine Glucose POC Glucose 151 H Lactic Acid Calcium Phosphorus Magnesium Direct Bilirubin AST ALT Alkaline Phosphatase Lactate Dehydrogenase Troponin T C-Reactive Protein Total Protein Albumin Prealbumin Triglycerides Cholesterol LDL Cholesterol Direct HDL Cholesterol Urine pH Urine WBC (Auto) Urine Creatinine Urine Total Protein Fluid Total Protein Vancomycin Trough Rheumatoid Factor Complement C4 Miscellaneous Test Crossmatch See Detail 10/09/16 10/09/16 10/09/16 11:46 16:20 16:43 WBC RBC Hgb 7.2 L Hct 22.2 L MCV MCH MCHC RDW Plt Count Lymph % (Auto) [place] % (Auto) Lymph # [place] # Baso # Seg Neutrophils % Seg Neuts % (Manual) Lymphocytes % (Manual) Monocytes % (Manual) Eosinophils % (Manual) Basophils % (Manual) Nucleated RBC % Seg Neutrophils # Seg Neutrophils # Man Lymphocytes # (Manual) Monocytes # (Manual) Eosinophils # (Manual) Basophils # (Manual) PT INR Fibrinogen dRVVT Confirm Interp Factor V Activity POC ABG pH POC ABG pCO2 POC ABG pO2 ABG pO2 ABG HCO3 ABG Base Excess ABG Hemoglobin Oxyhemoglobin Sodium Potassium Chloride Carbon Dioxide BUN Creatinine Glucose POC Glucose 133 H 141 H Lactic Acid Calcium Phosphorus Magnesium Direct Bilirubin AST ALT Alkaline Phosphatase Lactate Dehydrogenase Troponin T C-Reactive Protein Total Protein Albumin Prealbumin Triglycerides Cholesterol LDL Cholesterol Direct HDL Cholesterol Urine pH Urine WBC (Auto) Urine Creatinine Urine Total Protein Fluid Total Protein Vancomycin Trough Rheumatoid Factor Complement C4 Miscellaneous Test Crossmatch 10/10/16 10/10/16 10/10/16 05:00 05:00 11:19 WBC 18.5 H RBC 2.19 L Hgb 6.4 L Hct 19.6 L* MCV MCH MCHC RDW 19.3 H Plt Count 93 L Lymph % (Auto) [place] % (Auto) Lymph # [place] # Baso # Seg Neutrophils % Seg Neuts % (Manual) Lymphocytes % (Manual) 10.0 L Monocytes % (Manual) Eosinophils % (Manual) Basophils % (Manual) Nucleated RBC % 4.0 H Seg Neutrophils # Seg Neutrophils # Man 11.3 H Lymphocytes # (Manual) Monocytes # (Manual) Eosinophils # (Manual) Basophils # (Manual) PT INR Fibrinogen dRVVT Confirm Interp Factor V Activity POC ABG pH POC ABG pCO2 POC ABG pO2 ABG pO2 ABG HCO3 ABG Base Excess ABG Hemoglobin Oxyhemoglobin Sodium Potassium 5.7 H D Chloride Carbon Dioxide 16 L BUN 94 H Creatinine 3.1 H Glucose 131 H POC Glucose 153 H Lactic Acid Calcium 8.2 L Phosphorus 5.10 H Magnesium 2.40 H Direct Bilirubin 0.3 H AST ALT < 5 L Alkaline Phosphatase 319 H Lactate Dehydrogenase Troponin T C-Reactive Protein Total Protein 5.1 L Albumin 1.0 L Prealbumin Triglycerides Cholesterol LDL Cholesterol Direct HDL Cholesterol Urine pH Urine WBC (Auto) Urine Creatinine Urine Total Protein Fluid Total Protein Vancomycin Trough Rheumatoid Factor Complement C4 Miscellaneous Test Crossmatch 10/10/16 10/10/16 10/11/16 17:50 23:30 04:15 WBC RBC Hgb Hct MCV MCH MCHC RDW Plt Count Lymph % (Auto) [place] % (Auto) Lymph # [place] # Baso # Seg Neutrophils % Seg Neuts % (Manual) Lymphocytes % (Manual) Monocytes % (Manual) Eosinophils % (Manual) Basophils % (Manual) Nucleated RBC % Seg Neutrophils # Seg Neutrophils # Man Lymphocytes # (Manual) Monocytes # (Manual) Eosinophils # (Manual) Basophils # (Manual) PT INR Fibrinogen dRVVT Confirm Interp Factor V Activity POC ABG pH POC ABG pCO2 POC ABG pO2 ABG pO2 ABG HCO3 ABG Base Excess ABG Hemoglobin Oxyhemoglobin Sodium Potassium Chloride 96.4 L Carbon Dioxide 21 L BUN 57 H Creatinine 2.1 H Glucose 151 H POC Glucose 146 H 141 H Lactic Acid Calcium 8.3 L Phosphorus Magnesium Direct Bilirubin AST ALT Alkaline Phosphatase Lactate Dehydrogenase Troponin T C-Reactive Protein Total Protein Albumin Prealbumin Triglycerides Cholesterol LDL Cholesterol Direct HDL Cholesterol Urine pH Urine WBC (Auto) Urine Creatinine Urine Total Protein Fluid Total Protein Vancomycin Trough Rheumatoid Factor Complement C4 Miscellaneous Test Crossmatch 10/11/16 10/11/16 10/11/16 04:15 04:15 05:30 WBC 28.3 H RBC 3.12 L Hgb 9.3 L Hct 28.7 L D MCV MCH MCHC RDW 17.7 H Plt Count 128 L Lymph % (Auto) [place] % (Auto) Lymph # [place] # Baso # Seg Neutrophils % Seg Neuts % (Manual) Lymphocytes % (Manual) Monocytes % (Manual) Eosinophils % (Manual) Basophils % (Manual) Nucleated RBC % Seg Neutrophils # Seg Neutrophils # Man Lymphocytes # (Manual) Monocytes # (Manual) Eosinophils # (Manual) Basophils # (Manual) PT INR Fibrinogen dRVVT Confirm Interp Factor V Activity POC ABG pH POC ABG pCO2 POC ABG pO2 ABG pO2 ABG HCO3 ABG Base Excess ABG Hemoglobin Oxyhemoglobin Sodium Potassium Chloride Carbon Dioxide BUN Creatinine Glucose POC Glucose 167 H Lactic Acid Calcium Phosphorus Magnesium Direct Bilirubin AST ALT Alkaline Phosphatase Lactate Dehydrogenase Troponin T C-Reactive Protein 15.80 H Total Protein Albumin Prealbumin Triglycerides Cholesterol LDL Cholesterol Direct HDL Cholesterol Urine pH Urine WBC (Auto) Urine Creatinine Urine Total Protein Fluid Total Protein Vancomycin Trough Rheumatoid Factor Complement C4 Miscellaneous Test Crossmatch 10/11/16 10/11/16 10/11/16 11:40 15:49 23:57 WBC RBC Hgb Hct MCV MCH MCHC RDW Plt Count Lymph % (Auto) [place] % (Auto) Lymph # [place] # Baso # Seg Neutrophils % Seg Neuts % (Manual) Lymphocytes % (Manual) Monocytes % (Manual) Eosinophils % (Manual) Basophils % (Manual) Nucleated RBC % Seg Neutrophils # Seg Neutrophils # Man Lymphocytes # (Manual) Monocytes # (Manual) Eosinophils # (Manual) Basophils # (Manual) PT INR Fibrinogen dRVVT Confirm Interp Factor V Activity POC ABG pH POC ABG pCO2 POC ABG pO2 ABG pO2 ABG HCO3 ABG Base Excess ABG Hemoglobin Oxyhemoglobin Sodium Potassium Chloride Carbon Dioxide BUN Creatinine Glucose POC Glucose 139 H 168 H 161 H Lactic Acid Calcium Phosphorus Magnesium Direct Bilirubin AST ALT Alkaline Phosphatase Lactate Dehydrogenase Troponin T C-Reactive Protein Total Protein Albumin Prealbumin Triglycerides Cholesterol LDL Cholesterol Direct HDL Cholesterol Urine pH Urine WBC (Auto) Urine Creatinine Urine Total Protein Fluid Total Protein Vancomycin Trough Rheumatoid Factor Complement C4 Miscellaneous Test Crossmatch 10/12/16 10/12/16 10/12/16 04:40 04:40 05:44 WBC 22.5 H RBC 2.88 L Hgb 8.8 L Hct 26.8 L MCV MCH MCHC RDW 17.8 H Plt Count Lymph % (Auto) [place] % (Auto) Lymph # [place] # Baso # Seg Neutrophils % Seg Neuts % (Manual) Lymphocytes % (Manual) Monocytes % (Manual) Eosinophils % (Manual) Basophils % (Manual) Nucleated RBC % Seg Neutrophils # Seg Neutrophils # Man Lymphocytes # (Manual) Monocytes # (Manual) Eosinophils # (Manual) Basophils # (Manual) PT INR Fibrinogen dRVVT Confirm Interp Factor V Activity POC ABG pH POC ABG pCO2 POC ABG pO2 ABG pO2 ABG HCO3 ABG Base Excess ABG Hemoglobin Oxyhemoglobin Sodium 134 L Potassium Chloride 93.0 L Carbon Dioxide BUN 74 H Creatinine 2.5 H Glucose 137 H POC Glucose 158 H Lactic Acid Calcium 8.2 L Phosphorus Magnesium Direct Bilirubin AST ALT Alkaline Phosphatase Lactate Dehydrogenase Troponin T C-Reactive Protein Total Protein Albumin Prealbumin Triglycerides Cholesterol LDL Cholesterol Direct HDL Cholesterol Urine pH Urine WBC (Auto) Urine Creatinine Urine Total Protein Fluid Total Protein Vancomycin Trough Rheumatoid Factor Complement C4 Miscellaneous Test Crossmatch 10/12/16 10/12/1617 12:27 18:18 23:46 WBC RBC Hgb Hct MCV MCH MCHC RDW Plt Count Lymph % (Auto) [place] % (Auto) Lymph # [place] # Baso # Seg Neutrophils % Seg Neuts % (Manual) Lymphocytes % (Manual) Monocytes % (Manual) Eosinophils % (Manual) Basophils % (Manual) Nucleated RBC % Seg Neutrophils # Seg Neutrophils # Man Lymphocytes # (Manual) Monocytes # (Manual) Eosinophils # (Manual) Basophils # (Manual) PT INR Fibrinogen dRVVT Confirm Interp Factor V Activity POC ABG pH POC ABG pCO2 POC ABG pO2 ABG pO2 ABG HCO3 ABG Base Excess ABG Hemoglobin Oxyhemoglobin Sodium Potassium Chloride Carbon Dioxide BUN Creatinine Glucose POC Glucose 153 H 140 H 150 H Lactic Acid Calcium Phosphorus Magnesium Direct Bilirubin AST ALT Alkaline Phosphatase Lactate Dehydrogenase Troponin T C-Reactive Protein Total Protein Albumin Prealbumin Triglycerides Cholesterol LDL Cholesterol Direct HDL Cholesterol Urine pH Urine WBC (Auto) Urine Creatinine Urine Total Protein Fluid Total Protein Vancomycin Trough Rheumatoid Factor Complement C4 Miscellaneous Test Crossmatch 10/13/16 10/13/16 10/13/16 06:22 09:20 12:29 WBC RBC Hgb Hct MCV MCH MCHC RDW Plt Count Lymph % (Auto) [place] % (Auto) Lymph # [place] # Baso # Seg Neutrophils % Seg Neuts % (Manual) Lymphocytes % (Manual) Monocytes % (Manual) Eosinophils % (Manual) Basophils % (Manual) Nucleated RBC % Seg Neutrophils # Seg Neutrophils # Man Lymphocytes # (Manual) Monocytes # (Manual) Eosinophils # (Manual) Basophils # (Manual) PT INR Fibrinogen dRVVT Confirm Interp Factor V Activity POC ABG pH POC ABG pCO2 POC ABG pO2 ABG pO2 ABG HCO3 ABG Base Excess ABG Hemoglobin Oxyhemoglobin Sodium Potassium Chloride Carbon Dioxide BUN Creatinine Glucose POC Glucose 165 H 193 H Lactic Acid Calcium Phosphorus Magnesium Direct Bilirubin AST ALT Alkaline Phosphatase Lactate Dehydrogenase Troponin T C-Reactive Protein Total Protein Albumin Prealbumin Triglycerides Cholesterol LDL Cholesterol Direct HDL Cholesterol Urine pH Urine WBC (Auto) Urine Creatinine Urine Total Protein Fluid Total Protein Vancomycin Trough Rheumatoid Factor Complement C4 Miscellaneous Test Flexitest 1 H Crossmatch 10/13/16 10/13/16 10/13/16 18:09 Unknown Unknown WBC 23.4 H RBC 2.83 L Hgb 8.7 L Hct 26.1 L MCV MCH MCHC RDW 18.1 H Plt Count Lymph % (Auto) [place] % (Auto) Lymph # [place] # Baso # Seg Neutrophils % Seg Neuts % (Manual) Lymphocytes % (Manual) Monocytes % (Manual) Eosinophils % (Manual) Basophils % (Manual) Nucleated RBC % Seg Neutrophils # Seg Neutrophils # Man Lymphocytes # (Manual) Monocytes # (Manual) Eosinophils # (Manual) Basophils # (Manual) PT INR Fibrinogen dRVVT Confirm Interp Factor V Activity POC ABG pH POC ABG pCO2 POC ABG pO2 ABG pO2 ABG HCO3 ABG Base Excess ABG Hemoglobin Oxyhemoglobin Sodium Potassium Chloride 95.8 L Carbon Dioxide BUN 82 H Creatinine 2.6 H Glucose 152 H POC Glucose 166 H Lactic Acid Calcium Phosphorus Magnesium Direct Bilirubin AST ALT Alkaline Phosphatase Lactate Dehydrogenase Troponin T C-Reactive Protein Total Protein Albumin Prealbumin Triglycerides Cholesterol LDL Cholesterol Direct HDL Cholesterol Urine pH Urine WBC (Auto) Urine Creatinine Urine Total Protein Fluid Total Protein Vancomycin Trough Rheumatoid Factor Complement C4 Miscellaneous Test Crossmatch 10/14/16 10/14/16 10/14/16 05:38 06:35 08:10 WBC 20.7 H RBC 2.81 L Hgb 8.4 L Hct 27.2 L MCV MCH MCHC RDW 19.4 H Plt Count Lymph % (Auto) [place] % (Auto) Lymph # [place] # Baso # Seg Neutrophils % Seg Neuts % (Manual) Lymphocytes % (Manual) Monocytes % (Manual) Eosinophils % (Manual) Basophils % (Manual) Nucleated RBC % Seg Neutrophils # Seg Neutrophils # Man Lymphocytes # (Manual) Monocytes # (Manual) Eosinophils # (Manual) Basophils # (Manual) PT INR Fibrinogen dRVVT Confirm Interp Factor V Activity POC ABG pH POC ABG pCO2 POC ABG pO2 ABG pO2 ABG HCO3 ABG Base Excess ABG Hemoglobin Oxyhemoglobin Sodium Potassium Chloride Carbon Dioxide BUN 58 H Creatinine 1.9 H Glucose 169 H POC Glucose 195 H Lactic Acid Calcium Phosphorus Magnesium Direct Bilirubin AST ALT Alkaline Phosphatase Lactate Dehydrogenase Troponin T C-Reactive Protein Total Protein Albumin Prealbumin Triglycerides Cholesterol LDL Cholesterol Direct HDL Cholesterol Urine pH Urine WBC (Auto) Urine Creatinine Urine Total Protein Fluid Total Protein Vancomycin Trough Rheumatoid Factor Complement C4 Miscellaneous Test Crossmatch 10/14/16 10/14/16 10/14/16 11:44 17:13 23:28 WBC RBC Hgb Hct MCV MCH MCHC RDW Plt Count Lymph % (Auto) [place] % (Auto) Lymph # [place] # Baso # Seg Neutrophils % Seg Neuts % (Manual) Lymphocytes % (Manual) Monocytes % (Manual) Eosinophils % (Manual) Basophils % (Manual) Nucleated RBC % Seg Neutrophils # Seg Neutrophils # Man Lymphocytes # (Manual) Monocytes # (Manual) Eosinophils # (Manual) Basophils # (Manual) PT INR Fibrinogen dRVVT Confirm Interp Factor V Activity POC ABG pH POC ABG pCO2 POC ABG pO2 ABG pO2 ABG HCO3 ABG Base Excess ABG Hemoglobin Oxyhemoglobin Sodium Potassium Chloride Carbon Dioxide BUN Creatinine Glucose POC Glucose 174 H 121 H 151 H Lactic Acid Calcium Phosphorus Magnesium Direct Bilirubin AST ALT Alkaline Phosphatase Lactate Dehydrogenase Troponin T C-Reactive Protein Total Protein Albumin Prealbumin Triglycerides Cholesterol LDL Cholesterol Direct HDL Cholesterol Urine pH Urine WBC (Auto) Urine Creatinine Urine Total Protein Fluid Total Protein Vancomycin Trough Rheumatoid Factor Complement C4 Miscellaneous Test Crossmatch 10/15/16 10/15/16 10/15/16 05:06 12:26 17:48 WBC RBC Hgb Hct MCV MCH MCHC RDW Plt Count Lymph % (Auto) [place] % (Auto) Lymph # [place] # Baso # Seg Neutrophils % Seg Neuts % (Manual) Lymphocytes % (Manual) Monocytes % (Manual) Eosinophils % (Manual) Basophils % (Manual) Nucleated RBC % Seg Neutrophils # Seg Neutrophils # Man Lymphocytes # (Manual) Monocytes # (Manual) Eosinophils # (Manual) Basophils # (Manual) PT INR Fibrinogen dRVVT Confirm Interp Factor V Activity POC ABG pH POC ABG pCO2 POC ABG pO2 ABG pO2 ABG HCO3 ABG Base Excess ABG Hemoglobin Oxyhemoglobin Sodium Potassium Chloride Carbon Dioxide BUN Creatinine Glucose POC Glucose 151 H 149 H 153 H Lactic Acid Calcium Phosphorus Magnesium Direct Bilirubin AST ALT Alkaline Phosphatase Lactate Dehydrogenase Troponin T C-Reactive Protein Total Protein Albumin Prealbumin Triglycerides Cholesterol LDL Cholesterol Direct HDL Cholesterol Urine pH Urine WBC (Auto) Urine Creatinine Urine Total Protein Fluid Total Protein Vancomycin Trough Rheumatoid Factor Complement C4 Miscellaneous Test Crossmatch 10/15/16 10/15/16 10/16/16 Unknown Unknown 00:02 WBC 23.4 H RBC 2.78 L Hgb 8.5 L Hct 25.7 L MCV MCH MCHC RDW 18.7 H Plt Count Lymph % (Auto) [place] % (Auto) Lymph # [place] # Baso # Seg Neutrophils % Seg Neuts % (Manual) Lymphocytes % (Manual) Monocytes % (Manual) Eosinophils % (Manual) Basophils % (Manual) Nucleated RBC % Seg Neutrophils # Seg Neutrophils # Man Lymphocytes # (Manual) Monocytes # (Manual) Eosinophils # (Manual) Basophils # (Manual) PT INR Fibrinogen dRVVT Confirm Interp Factor V Activity POC ABG pH POC ABG pCO2 POC ABG pO2 ABG pO2 ABG HCO3 ABG Base Excess ABG Hemoglobin Oxyhemoglobin Sodium Potassium Chloride Carbon Dioxide BUN 73 H Creatinine 2.3 H Glucose 120 H POC Glucose 137 H Lactic Acid Calcium Phosphorus Magnesium Direct Bilirubin AST ALT Alkaline Phosphatase Lactate Dehydrogenase Troponin T C-Reactive Protein Total Protein Albumin Prealbumin Triglycerides Cholesterol LDL Cholesterol Direct HDL Cholesterol Urine pH Urine WBC (Auto) Urine Creatinine Urine Total Protein Fluid Total Protein Vancomycin Trough Rheumatoid Factor Complement C4 Miscellaneous Test Crossmatch 10/16/16 10/16/16 10/16/16 05:44 06:25 06:25 WBC 22.5 H RBC 2.76 L Hgb 8.3 L Hct 25.2 L MCV MCH MCHC RDW 18.3 H Plt Count Lymph % (Auto) [place] % (Auto) Lymph # [place] # Baso # Seg Neutrophils % Seg Neuts % (Manual) Lymphocytes % (Manual) Monocytes % (Manual) Eosinophils % (Manual) Basophils % (Manual) Nucleated RBC % Seg Neutrophils # Seg Neutrophils # Man Lymphocytes # (Manual) Monocytes # (Manual) Eosinophils # (Manual) Basophils # (Manual) PT INR Fibrinogen dRVVT Confirm Interp Factor V Activity POC ABG pH POC ABG pCO2 POC ABG pO2 ABG pO2 ABG HCO3 ABG Base Excess ABG Hemoglobin Oxyhemoglobin Sodium Potassium Chloride Carbon Dioxide BUN 92 H Creatinine 3.0 H Glucose 138 H POC Glucose 110 H Lactic Acid Calcium Phosphorus Magnesium Direct Bilirubin AST ALT Alkaline Phosphatase Lactate Dehydrogenase Troponin T C-Reactive Protein Total Protein Albumin Prealbumin Triglycerides Cholesterol LDL Cholesterol Direct HDL Cholesterol Urine pH Urine WBC (Auto) Urine Creatinine Urine Total Protein Fluid Total Protein Vancomycin Trough Rheumatoid Factor Complement C4 Miscellaneous Test Crossmatch 10/16/16 10/16/16 10/16/16 11:27 11:48 17:36 WBC RBC Hgb Hct MCV MCH MCHC RDW Plt Count Lymph % (Auto) [place] % (Auto) Lymph # [place] # Baso # Seg Neutrophils % Seg Neuts % (Manual) Lymphocytes % (Manual) Monocytes % (Manual) Eosinophils % (Manual) Basophils % (Manual) Nucleated RBC % Seg Neutrophils # Seg Neutrophils # Man Lymphocytes # (Manual) Monocytes # (Manual) Eosinophils # (Manual) Basophils # (Manual) PT INR Fibrinogen dRVVT Confirm Interp Factor V Activity POC ABG pH 7.582 H POC ABG pCO2 27.4 L POC ABG pO2 110 H ABG pO2 ABG HCO3 ABG Base Excess ABG Hemoglobin Oxyhemoglobin Sodium Potassium Chloride Carbon Dioxide BUN Creatinine Glucose POC Glucose 121 H 133 H Lactic Acid Calcium Phosphorus Magnesium Direct Bilirubin AST ALT Alkaline Phosphatase Lactate Dehydrogenase Troponin T C-Reactive Protein Total Protein Albumin Prealbumin Triglycerides Cholesterol LDL Cholesterol Direct HDL Cholesterol Urine pH Urine WBC (Auto) Urine Creatinine Urine Total Protein Fluid Total Protein Vancomycin Trough Rheumatoid Factor Complement C4 Miscellaneous Test Crossmatch 10/16/16 10/17/16 10/17/16 20:48 04:24 04:24 WBC 21.4 H RBC 2.72 L Hgb 8.0 L Hct 25.2 L MCV MCH MCHC RDW 18.0 H Plt Count Lymph % (Auto) [place] % (Auto) Lymph # [place] # Baso # Seg Neutrophils % Seg Neuts % (Manual) Lymphocytes % (Manual) Monocytes % (Manual) Eosinophils % (Manual) Basophils % (Manual) Nucleated RBC % Seg Neutrophils # Seg Neutrophils # Man Lymphocytes # (Manual) Monocytes # (Manual) Eosinophils # (Manual) Basophils # (Manual) PT INR Fibrinogen dRVVT Confirm Interp Factor V Activity POC ABG pH 7.561 H POC ABG pCO2 24.4 L POC ABG pO2 77 L ABG pO2 ABG HCO3 ABG Base Excess ABG Hemoglobin Oxyhemoglobin Sodium 148 H Potassium Chloride Carbon Dioxide BUN 104 H Creatinine 3.0 H Glucose 149 H POC Glucose Lactic Acid Calcium Phosphorus Magnesium Direct Bilirubin AST ALT Alkaline Phosphatase 138 H Lactate Dehydrogenase Troponin T C-Reactive Protein Total Protein 6.2 L Albumin 1.5 L Prealbumin Triglycerides Cholesterol LDL Cholesterol Direct HDL Cholesterol Urine pH Urine WBC (Auto) Urine Creatinine Urine Total Protein Fluid Total Protein Vancomycin Trough Rheumatoid Factor Complement C4 Miscellaneous Test Crossmatch 10/17/16 10/17/16 10/17/16 06:02 12:17 17:14 WBC RBC Hgb Hct MCV MCH MCHC RDW Plt Count Lymph % (Auto) [place] % (Auto) Lymph # [place] # Baso # Seg Neutrophils % Seg Neuts % (Manual) Lymphocytes % (Manual) Monocytes % (Manual) Eosinophils % (Manual) Basophils % (Manual) Nucleated RBC % Seg Neutrophils # Seg Neutrophils # Man Lymphocytes # (Manual) Monocytes # (Manual) Eosinophils # (Manual) Basophils # (Manual) PT INR Fibrinogen dRVVT Confirm Interp Factor V Activity POC ABG pH POC ABG pCO2 POC ABG pO2 ABG pO2 ABG HCO3 ABG Base Excess ABG Hemoglobin Oxyhemoglobin Sodium Potassium Chloride Carbon Dioxide BUN Creatinine Glucose POC Glucose 170 H 167 H 126 H Lactic Acid Calcium Phosphorus Magnesium Direct Bilirubin AST ALT Alkaline Phosphatase Lactate Dehydrogenase Troponin T C-Reactive Protein Total Protein Albumin Prealbumin Triglycerides Cholesterol LDL Cholesterol Direct HDL Cholesterol Urine pH Urine WBC (Auto) Urine Creatinine Urine Total Protein Fluid Total Protein Vancomycin Trough Rheumatoid Factor Complement C4 Miscellaneous Test Crossmatch 10/17/16 10/18/16 10/18/16 23:17 04:00 04:00 WBC 20.7 H RBC 2.47 L Hgb 7.4 L Hct 22.9 L MCV MCH MCHC RDW 17.5 H Plt Count Lymph % (Auto) [place] % (Auto) Lymph # [place] # Baso # Seg Neutrophils % Seg Neuts % (Manual) Lymphocytes % (Manual) Monocytes % (Manual) Eosinophils % (Manual) Basophils % (Manual) Nucleated RBC % Seg Neutrophils # Seg Neutrophils # Man Lymphocytes # (Manual) Monocytes # (Manual) Eosinophils # (Manual) Basophils # (Manual) PT INR Fibrinogen dRVVT Confirm Interp Factor V Activity POC ABG pH POC ABG pCO2 POC ABG pO2 ABG pO2 ABG HCO3 ABG Base Excess ABG Hemoglobin Oxyhemoglobin Sodium 149 H Potassium Chloride 107.9 H Carbon Dioxide 20 L BUN 117 H Creatinine 3.2 H Glucose 119 H POC Glucose 121 H Lactic Acid Calcium Phosphorus Magnesium Direct Bilirubin AST ALT Alkaline Phosphatase Lactate Dehydrogenase Troponin T C-Reactive Protein Total Protein Albumin Prealbumin Triglycerides Cholesterol LDL Cholesterol Direct HDL Cholesterol Urine pH Urine WBC (Auto) Urine Creatinine Urine Total Protein Fluid Total Protein Vancomycin Trough Rheumatoid Factor Complement C4 Miscellaneous Test Crossmatch 10/18/16 10/18/16 10/18/16 05:23 10:46 17:30 WBC RBC Hgb Hct MCV MCH MCHC RDW Plt Count Lymph % (Auto) [place] % (Auto) Lymph # [place] # Baso # Seg Neutrophils % Seg Neuts % (Manual) Lymphocytes % (Manual) Monocytes % (Manual) Eosinophils % (Manual) Basophils % (Manual) Nucleated RBC % Seg Neutrophils # Seg Neutrophils # Man Lymphocytes # (Manual) Monocytes # (Manual) Eosinophils # (Manual) Basophils # (Manual) PT INR Fibrinogen dRVVT Confirm Interp Factor V Activity POC ABG pH POC ABG pCO2 POC ABG pO2 ABG pO2 ABG HCO3 ABG Base Excess ABG Hemoglobin Oxyhemoglobin Sodium Potassium Chloride Carbon Dioxide BUN Creatinine Glucose POC Glucose 119 H 155 H 124 H Lactic Acid Calcium Phosphorus Magnesium Direct Bilirubin AST ALT Alkaline Phosphatase Lactate Dehydrogenase Troponin T C-Reactive Protein Total Protein Albumin Prealbumin Triglycerides Cholesterol LDL Cholesterol Direct HDL Cholesterol Urine pH Urine WBC (Auto) Urine Creatinine Urine Total Protein Fluid Total Protein Vancomycin Trough Rheumatoid Factor Complement C4 Miscellaneous Test Crossmatch 10/19/16 10/19/16 10/19/16 04:00 04:00 05:25 WBC 17.4 H RBC 2.54 L Hgb 7.7 L Hct 23.6 L MCV MCH MCHC RDW 17.3 H Plt Count Lymph % (Auto) [place] % (Auto) Lymph # [place] # Baso # Seg Neutrophils % Seg Neuts % (Manual) Lymphocytes % (Manual) Monocytes % (Manual) Eosinophils % (Manual) Basophils % (Manual) Nucleated RBC % Seg Neutrophils # Seg Neutrophils # Man Lymphocytes # (Manual) Monocytes # (Manual) Eosinophils # (Manual) Basophils # (Manual) PT INR Fibrinogen dRVVT Confirm Interp Factor V Activity POC ABG pH POC ABG pCO2 POC ABG pO2 ABG pO2 ABG HCO3 ABG Base Excess ABG Hemoglobin Oxyhemoglobin Sodium Potassium Chloride Carbon Dioxide BUN 72 H Creatinine 2.1 H Glucose 116 H POC Glucose 119 H Lactic Acid Calcium Phosphorus Magnesium Direct Bilirubin AST ALT Alkaline Phosphatase Lactate Dehydrogenase Troponin T C-Reactive Protein Total Protein Albumin Prealbumin Triglycerides Cholesterol LDL Cholesterol Direct HDL Cholesterol Urine pH Urine WBC (Auto) Urine Creatinine Urine Total Protein Fluid Total Protein Vancomycin Trough Rheumatoid Factor Complement C4 Miscellaneous Test Crossmatch 10/19/16 10/19/16 10/20/16 11:46 23:59 06:00 WBC RBC Hgb Hct MCV MCH MCHC RDW Plt Count Lymph % (Auto) [place] % (Auto) Lymph # [place] # Baso # Seg Neutrophils % Seg Neuts % (Manual) Lymphocytes % (Manual) Monocytes % (Manual) Eosinophils % (Manual) Basophils % (Manual) Nucleated RBC % Seg Neutrophils # Seg Neutrophils # Man Lymphocytes # (Manual) Monocytes # (Manual) Eosinophils # (Manual) Basophils # (Manual) PT INR Fibrinogen dRVVT Confirm Interp Factor V Activity POC ABG pH POC ABG pCO2 POC ABG pO2 ABG pO2 ABG HCO3 ABG Base Excess ABG Hemoglobin Oxyhemoglobin Sodium Potassium Chloride Carbon Dioxide 17 L BUN 94 H Creatinine 2.7 H Glucose POC Glucose 116 H 117 H Lactic Acid Calcium Phosphorus Magnesium Direct Bilirubin AST ALT Alkaline Phosphatase Lactate Dehydrogenase Troponin T C-Reactive Protein Total Protein Albumin Prealbumin Triglycerides Cholesterol LDL Cholesterol Direct HDL Cholesterol Urine pH Urine WBC (Auto) Urine Creatinine Urine Total Protein Fluid Total Protein Vancomycin Trough Rheumatoid Factor Complement C4 Miscellaneous Test Crossmatch 10/20/16 10/20/16 10/20/16 06:00 11:49 16:00 WBC 19.7 H RBC 2.51 L Hgb 7.7 L Hct 23.5 L MCV MCH MCHC RDW 17.5 H Plt Count Lymph % (Auto) [place] % (Auto) Lymph # [place] # Baso # Seg Neutrophils % Seg Neuts % (Manual) Lymphocytes % (Manual) Monocytes % (Manual) Eosinophils % (Manual) Basophils % (Manual) Nucleated RBC % Seg Neutrophils # Seg Neutrophils # Man Lymphocytes # (Manual) Monocytes # (Manual) Eosinophils # (Manual) Basophils # (Manual) PT INR Fibrinogen dRVVT Confirm Interp Factor V Activity POC ABG pH POC ABG pCO2 POC ABG pO2 ABG pO2 ABG HCO3 ABG Base Excess ABG Hemoglobin Oxyhemoglobin Sodium Potassium Chloride Carbon Dioxide BUN Creatinine Glucose POC Glucose 117 H Lactic Acid Calcium Phosphorus Magnesium Direct Bilirubin AST ALT Alkaline Phosphatase Lactate Dehydrogenase Troponin T C-Reactive Protein Total Protein Albumin Prealbumin Triglycerides Cholesterol LDL Cholesterol Direct HDL Cholesterol Urine pH Urine WBC (Auto) Urine Creatinine Urine Total Protein Fluid Total Protein Vancomycin Trough Rheumatoid Factor Complement C4 Miscellaneous Test Flexitest 1 H Crossmatch 10/20/16 10/20/16 10/21/16 18:36 23:39 04:00 WBC RBC Hgb Hct MCV MCH MCHC RDW Plt Count Lymph % (Auto) [place] % (Auto) Lymph # [place] # Baso # Seg Neutrophils % Seg Neuts % (Manual) Lymphocytes % (Manual) Monocytes % (Manual) Eosinophils % (Manual) Basophils % (Manual) Nucleated RBC % Seg Neutrophils # Seg Neutrophils # Man Lymphocytes # (Manual) Monocytes # (Manual) Eosinophils # (Manual) Basophils # (Manual) PT INR Fibrinogen dRVVT Confirm Interp Factor V Activity POC ABG pH POC ABG pCO2 POC ABG pO2 ABG pO2 ABG HCO3 ABG Base Excess ABG Hemoglobin Oxyhemoglobin Sodium Potassium 5.4 H D Chloride Carbon Dioxide 15 L BUN 110 H Creatinine 3.0 H Glucose POC Glucose 127 H 114 H Lactic Acid Calcium Phosphorus Magnesium Direct Bilirubin AST ALT Alkaline Phosphatase Lactate Dehydrogenase Troponin T C-Reactive Protein Total Protein Albumin Prealbumin Triglycerides Cholesterol LDL Cholesterol Direct HDL Cholesterol Urine pH Urine WBC (Auto) Urine Creatinine Urine Total Protein Fluid Total Protein Vancomycin Trough Rheumatoid Factor Complement C4 Miscellaneous Test Crossmatch 10/21/16 10/21/16 10/22/16 05:54 23:46 05:18 WBC RBC Hgb Hct MCV MCH MCHC RDW Plt Count Lymph % (Auto) [place] % (Auto) Lymph # [place] # Baso # Seg Neutrophils % Seg Neuts % (Manual) Lymphocytes % (Manual) Monocytes % (Manual) Eosinophils % (Manual) Basophils % (Manual) Nucleated RBC % Seg Neutrophils # Seg Neutrophils # Man Lymphocytes # (Manual) Monocytes # (Manual) Eosinophils # (Manual) Basophils # (Manual) PT INR Fibrinogen dRVVT Confirm Interp Factor V Activity POC ABG pH POC ABG pCO2 POC ABG pO2 ABG pO2 ABG HCO3 ABG Base Excess ABG Hemoglobin Oxyhemoglobin Sodium Potassium Chloride Carbon Dioxide BUN Creatinine Glucose POC Glucose 119 H 108 H 109 H Lactic Acid Calcium Phosphorus Magnesium Direct Bilirubin AST ALT Alkaline Phosphatase Lactate Dehydrogenase Troponin T C-Reactive Protein Total Protein Albumin Prealbumin Triglycerides Cholesterol LDL Cholesterol Direct HDL Cholesterol Urine pH Urine WBC (Auto) Urine Creatinine Urine Total Protein Fluid Total Protein Vancomycin Trough Rheumatoid Factor Complement C4 Miscellaneous Test Crossmatch 10/22/16 10/22/16 10/22/16 06:40 06:40 06:40 WBC 14.0 H RBC 2.03 L Hgb 7.0 L Hct 20.5 L MCV 98 H MCH 34 H MCHC 35 H RDW 17.8 H Plt Count Lymph % (Auto) [place] % (Auto) 9.9 H Lymph # [place] # 1.4 H Baso # 0.2 H Seg Neutrophils % 72.0 H Seg Neuts % (Manual) Lymphocytes % (Manual) Monocytes % (Manual) Eosinophils % (Manual) Basophils % (Manual) Nucleated RBC % Seg Neutrophils # 10.0 H Seg Neutrophils # Man Lymphocytes # (Manual) Monocytes # (Manual) Eosinophils # (Manual) Basophils # (Manual) PT INR Fibrinogen dRVVT Confirm Interp Factor V Activity POC ABG pH POC ABG pCO2 POC ABG pO2 ABG pO2 ABG HCO3 ABG Base Excess ABG Hemoglobin Oxyhemoglobin Sodium 130 L D Potassium Chloride 92.4 L Carbon Dioxide 20 L BUN 50 H Creatinine 1.6 H Glucose 589 H* POC Glucose Lactic Acid Calcium 7.8 L D Phosphorus Magnesium 1.60 L Direct Bilirubin AST ALT Alkaline Phosphatase Lactate Dehydrogenase Troponin T C-Reactive Protein Total Protein Albumin Prealbumin Triglycerides Cholesterol LDL Cholesterol Direct HDL Cholesterol Urine pH Urine WBC (Auto) Urine Creatinine Urine Total Protein Fluid Total Protein Vancomycin Trough Rheumatoid Factor Complement C4 Miscellaneous Test Crossmatch 10/22/16 10/22/16 10/22/16 11:39 16:44 23:36 WBC RBC Hgb Hct MCV MCH MCHC RDW Plt Count Lymph % (Auto) [place] % (Auto) Lymph # [place] # Baso # Seg Neutrophils % Seg Neuts % (Manual) Lymphocytes % (Manual) Monocytes % (Manual) Eosinophils % (Manual) Basophils % (Manual) Nucleated RBC % Seg Neutrophils # Seg Neutrophils # Man Lymphocytes # (Manual) Monocytes # (Manual) Eosinophils # (Manual) Basophils # (Manual) PT INR Fibrinogen dRVVT Confirm Interp Factor V Activity POC ABG pH POC ABG pCO2 POC ABG pO2 ABG pO2 ABG HCO3 ABG Base Excess ABG Hemoglobin Oxyhemoglobin Sodium Potassium Chloride Carbon Dioxide BUN Creatinine Glucose POC Glucose 142 H 163 H 123 H Lactic Acid Calcium Phosphorus Magnesium Direct Bilirubin AST ALT Alkaline Phosphatase Lactate Dehydrogenase Troponin T C-Reactive Protein Total Protein Albumin Prealbumin Triglycerides Cholesterol LDL Cholesterol Direct HDL Cholesterol Urine pH Urine WBC (Auto) Urine Creatinine Urine Total Protein Fluid Total Protein Vancomycin Trough Rheumatoid Factor Complement C4 Miscellaneous Test Crossmatch 10/23/16 10/23/16 10/23/16 04:58 06:00 12:12 WBC RBC Hgb Hct MCV MCH MCHC RDW Plt Count Lymph % (Auto) [place] % (Auto) Lymph # [place] # Baso # Seg Neutrophils % Seg Neuts % (Manual) Lymphocytes % (Manual) Monocytes % (Manual) Eosinophils % (Manual) Basophils % (Manual) Nucleated RBC % Seg Neutrophils # Seg Neutrophils # Man Lymphocytes # (Manual) Monocytes # (Manual) Eosinophils # (Manual) Basophils # (Manual) PT INR Fibrinogen dRVVT Confirm Interp Factor V Activity POC ABG pH POC ABG pCO2 POC ABG pO2 ABG pO2 ABG HCO3 ABG Base Excess ABG Hemoglobin Oxyhemoglobin Sodium 133 L Potassium 3.5 L Chloride 96.1 L Carbon Dioxide 18 L BUN 76 H Creatinine 2.1 H Glucose POC Glucose 133 H 138 H Lactic Acid Calcium 8.3 L Phosphorus Magnesium Direct Bilirubin AST ALT Alkaline Phosphatase Lactate Dehydrogenase Troponin T C-Reactive Protein Total Protein Albumin Prealbumin Triglycerides Cholesterol LDL Cholesterol Direct HDL Cholesterol Urine pH Urine WBC (Auto) Urine Creatinine Urine Total Protein Fluid Total Protein Vancomycin Trough Rheumatoid Factor Complement C4 Miscellaneous Test Crossmatch 10/23/16 10/23/16 10/24/16 16:53 23:37 04:00 WBC RBC Hgb Hct MCV MCH MCHC RDW Plt Count Lymph % (Auto) [place] % (Auto) Lymph # [place] # Baso # Seg Neutrophils % Seg Neuts % (Manual) Lymphocytes % (Manual) Monocytes % (Manual) Eosinophils % (Manual) Basophils % (Manual) Nucleated RBC % Seg Neutrophils # Seg Neutrophils # Man Lymphocytes # (Manual) Monocytes # (Manual) Eosinophils # (Manual) Basophils # (Manual) PT INR Fibrinogen dRVVT Confirm Interp Factor V Activity POC ABG pH POC ABG pCO2 POC ABG pO2 ABG pO2 ABG HCO3 ABG Base Excess ABG Hemoglobin Oxyhemoglobin Sodium 131 L Potassium Chloride 94.5 L Carbon Dioxide 19 L BUN 97 H Creatinine 2.6 H Glucose 110 H POC Glucose 125 H 123 H Lactic Acid Calcium 8.3 L Phosphorus Magnesium Direct Bilirubin AST ALT Alkaline Phosphatase Lactate Dehydrogenase Troponin T C-Reactive Protein Total Protein Albumin Prealbumin Triglycerides Cholesterol LDL Cholesterol Direct HDL Cholesterol Urine pH Urine WBC (Auto) Urine Creatinine Urine Total Protein Fluid Total Protein Vancomycin Trough Rheumatoid Factor Complement C4 Miscellaneous Test Crossmatch 10/24/16 10/24/16 10/24/16 07:49 11:39 17:52 WBC RBC Hgb 6.0 L Hct 19.7 L* MCV MCH MCHC RDW Plt Count Lymph % (Auto) [place] % (Auto) Lymph # [place] # Baso # Seg Neutrophils % Seg Neuts % (Manual) Lymphocytes % (Manual) Monocytes % (Manual) Eosinophils % (Manual) Basophils % (Manual) Nucleated RBC % Seg Neutrophils # Seg Neutrophils # Man Lymphocytes # (Manual) Monocytes # (Manual) Eosinophils # (Manual) Basophils # (Manual) PT INR Fibrinogen dRVVT Confirm Interp Factor V Activity POC ABG pH POC ABG pCO2 POC ABG pO2 ABG pO2 ABG HCO3 ABG Base Excess ABG Hemoglobin Oxyhemoglobin Sodium Potassium Chloride Carbon Dioxide BUN Creatinine Glucose POC Glucose 106 H 158 H Lactic Acid Calcium Phosphorus Magnesium Direct Bilirubin AST ALT Alkaline Phosphatase Lactate Dehydrogenase Troponin T C-Reactive Protein Total Protein Albumin Prealbumin Triglycerides Cholesterol LDL Cholesterol Direct HDL Cholesterol Urine pH Urine WBC (Auto) Urine Creatinine Urine Total Protein Fluid Total Protein Vancomycin Trough Rheumatoid Factor Complement C4 Miscellaneous Test Crossmatch 10/24/16 10/24/16 10/24/16 20:00 22:27 Unknown WBC RBC Hgb 9.4 L D Hct 27.5 L D MCV MCH MCHC RDW Plt Count Lymph % (Auto) [place] % (Auto) Lymph # [place] # Baso # Seg Neutrophils % Seg Neuts % (Manual) Lymphocytes % (Manual) Monocytes % (Manual) Eosinophils % (Manual) Basophils % (Manual) Nucleated RBC % Seg Neutrophils # Seg Neutrophils # Man Lymphocytes # (Manual) Monocytes # (Manual) Eosinophils # (Manual) Basophils # (Manual) PT INR Fibrinogen dRVVT Confirm Interp Factor V Activity POC ABG pH POC ABG pCO2 POC ABG pO2 ABG pO2 ABG HCO3 ABG Base Excess ABG Hemoglobin Oxyhemoglobin Sodium Potassium Chloride Carbon Dioxide BUN Creatinine Glucose POC Glucose 125 H Lactic Acid Calcium Phosphorus Magnesium Direct Bilirubin AST ALT Alkaline Phosphatase Lactate Dehydrogenase Troponin T C-Reactive Protein Total Protein Albumin Prealbumin Triglycerides Cholesterol LDL Cholesterol Direct HDL Cholesterol Urine pH Urine WBC (Auto) Urine Creatinine Urine Total Protein Fluid Total Protein Vancomycin Trough Rheumatoid Factor Complement C4 Miscellaneous Test Crossmatch See Detail 10/25/16 10/25/16 10/25/16 04:00 04:00 04:00 WBC 14.2 H RBC 2.98 L Hgb 9.0 L Hct 26.2 L MCV MCH MCHC RDW 16.6 H Plt Count Lymph % (Auto) [place] % (Auto) 10.7 H Lymph # [place] # 1.5 H Baso # Seg Neutrophils % 73.6 H Seg Neuts % (Manual) Lymphocytes % (Manual) Monocytes % (Manual) Eosinophils % (Manual) Basophils % (Manual) Nucleated RBC % Seg Neutrophils # 10.5 H Seg Neutrophils # Man Lymphocytes # (Manual) Monocytes # (Manual) Eosinophils # (Manual) Basophils # (Manual) PT INR Fibrinogen dRVVT Confirm Interp Factor V Activity POC ABG pH POC ABG pCO2 POC ABG pO2 ABG pO2 ABG HCO3 ABG Base Excess ABG Hemoglobin Oxyhemoglobin Sodium 132 L Potassium Chloride 94.7 L Carbon Dioxide BUN 51 H Creatinine 1.6 H Glucose 130 H POC Glucose Lactic Acid Calcium 8.3 L Phosphorus 1.60 L D Magnesium Direct Bilirubin AST ALT Alkaline Phosphatase Lactate Dehydrogenase Troponin T C-Reactive Protein Total Protein Albumin Prealbumin Triglycerides Cholesterol LDL Cholesterol Direct HDL Cholesterol Urine pH Urine WBC (Auto) Urine Creatinine Urine Total Protein Fluid Total Protein Vancomycin Trough Rheumatoid Factor Complement C4 Miscellaneous Test Crossmatch 10/25/16 10/25/16 10/25/16 04:32 11:48 17:22 WBC RBC Hgb Hct MCV MCH MCHC RDW Plt Count Lymph % (Auto) [place] % (Auto) Lymph # [place] # Baso # Seg Neutrophils % Seg Neuts % (Manual) Lymphocytes % (Manual) Monocytes % (Manual) Eosinophils % (Manual) Basophils % (Manual) Nucleated RBC % Seg Neutrophils # Seg Neutrophils # Man Lymphocytes # (Manual) Monocytes # (Manual) Eosinophils # (Manual) Basophils # (Manual) PT INR Fibrinogen dRVVT Confirm Interp Factor V Activity POC ABG pH POC ABG pCO2 POC ABG pO2 ABG pO2 ABG HCO3 ABG Base Excess ABG Hemoglobin Oxyhemoglobin Sodium Potassium Chloride Carbon Dioxide BUN Creatinine Glucose POC Glucose 124 H 171 H 120 H Lactic Acid Calcium Phosphorus Magnesium Direct Bilirubin AST ALT Alkaline Phosphatase Lactate Dehydrogenase Troponin T C-Reactive Protein Total Protein Albumin Prealbumin Triglycerides Cholesterol LDL Cholesterol Direct HDL Cholesterol Urine pH Urine WBC (Auto) Urine Creatinine Urine Total Protein Fluid Total Protein Vancomycin Trough Rheumatoid Factor Complement C4 Miscellaneous Test Crossmatch 10/26/16 10/26/16 10/26/16 04:54 07:06 07:06 WBC 16.9 H RBC 3.06 L Hgb 9.1 L Hct 26.9 L MCV MCH MCHC RDW 16.9 H Plt Count Lymph % (Auto) [place] % (Auto) Lymph # [place] # Baso # Seg Neutrophils % Seg Neuts % (Manual) 71.0 H Lymphocytes % (Manual) 5.0 L Monocytes % (Manual) 12.0 H Eosinophils % (Manual) Basophils % (Manual) Nucleated RBC % Seg Neutrophils # Seg Neutrophils # Man 12.0 H Lymphocytes # (Manual) 0.8 L Monocytes # (Manual) 2.0 H Eosinophils # (Manual) Basophils # (Manual) PT INR Fibrinogen dRVVT Confirm Interp Factor V Activity POC ABG pH POC ABG pCO2 POC ABG pO2 ABG pO2 ABG HCO3 ABG Base Excess ABG Hemoglobin Oxyhemoglobin Sodium 135 L Potassium Chloride 97.1 L Carbon Dioxide BUN 73 H Creatinine 2.2 H Glucose 117 H POC Glucose 123 H Lactic Acid Calcium Phosphorus 1.70 L Magnesium Direct Bilirubin AST ALT Alkaline Phosphatase Lactate Dehydrogenase Troponin T C-Reactive Protein Total Protein Albumin Prealbumin Triglycerides Cholesterol LDL Cholesterol Direct HDL Cholesterol Urine pH Urine WBC (Auto) Urine Creatinine Urine Total Protein Fluid Total Protein Vancomycin Trough Rheumatoid Factor Complement C4 Miscellaneous Test Crossmatch 10/26/16 10/26/16 10/26/16 12:12 17:29 23:42 WBC RBC Hgb Hct MCV MCH MCHC RDW Plt Count Lymph % (Auto) [place] % (Auto) Lymph # [place] # Baso # Seg Neutrophils % Seg Neuts % (Manual) Lymphocytes % (Manual) Monocytes % (Manual) Eosinophils % (Manual) Basophils % (Manual) Nucleated RBC % Seg Neutrophils # Seg Neutrophils # Man Lymphocytes # (Manual) Monocytes # (Manual) Eosinophils # (Manual) Basophils # (Manual) PT INR Fibrinogen dRVVT Confirm Interp Factor V Activity POC ABG pH POC ABG pCO2 POC ABG pO2 ABG pO2 ABG HCO3 ABG Base Excess ABG Hemoglobin Oxyhemoglobin Sodium Potassium Chloride Carbon Dioxide BUN Creatinine Glucose POC Glucose 126 H 161 H 118 H Lactic Acid Calcium Phosphorus Magnesium Direct Bilirubin AST ALT Alkaline Phosphatase Lactate Dehydrogenase Troponin T C-Reactive Protein Total Protein Albumin Prealbumin Triglycerides Cholesterol LDL Cholesterol Direct HDL Cholesterol Urine pH Urine WBC (Auto) Urine Creatinine Urine Total Protein Fluid Total Protein Vancomycin Trough Rheumatoid Factor Complement C4 Miscellaneous Test Crossmatch 10/27/16 10/27/16 10/27/16 05:03 06:30 06:30 WBC 13.9 H RBC 3.09 L Hgb 9.2 L Hct 27.5 L MCV MCH MCHC RDW 17.0 H Plt Count Lymph % (Auto) [place] % (Auto) Lymph # [place] # Baso # Seg Neutrophils % Seg Neuts % (Manual) 78.0 H Lymphocytes % (Manual) Monocytes % (Manual) Eosinophils % (Manual) Basophils % (Manual) Nucleated RBC % 2.0 H Seg Neutrophils # Seg Neutrophils # Man 10.8 H Lymphocytes # (Manual) Monocytes # (Manual) 1.0 H Eosinophils # (Manual) Basophils # (Manual) PT INR Fibrinogen dRVVT Confirm Interp Factor V Activity POC ABG pH POC ABG pCO2 POC ABG pO2 ABG pO2 ABG HCO3 ABG Base Excess ABG Hemoglobin Oxyhemoglobin Sodium Potassium Chloride Carbon Dioxide BUN 40 H Creatinine 1.5 H Glucose 135 H POC Glucose 107 H Lactic Acid Calcium 8.3 L Phosphorus 1.30 L D Magnesium Direct Bilirubin AST ALT Alkaline Phosphatase Lactate Dehydrogenase Troponin T C-Reactive Protein Total Protein Albumin Prealbumin Triglycerides Cholesterol LDL Cholesterol Direct HDL Cholesterol Urine pH Urine WBC (Auto) Urine Creatinine Urine Total Protein Fluid Total Protein Vancomycin Trough Rheumatoid Factor Complement C4 Miscellaneous Test Crossmatch 10/27/16 10/27/16 10/27/16 13:27 18:07 23:40 WBC RBC Hgb Hct MCV MCH MCHC RDW Plt Count Lymph % (Auto) [place] % (Auto) Lymph # [place] # Baso # Seg Neutrophils % Seg Neuts % (Manual) Lymphocytes % (Manual) Monocytes % (Manual) Eosinophils % (Manual) Basophils % (Manual) Nucleated RBC % Seg Neutrophils # Seg Neutrophils # Man Lymphocytes # (Manual) Monocytes # (Manual) Eosinophils # (Manual) Basophils # (Manual) PT INR Fibrinogen dRVVT Confirm Interp Factor V Activity POC ABG pH POC ABG pCO2 POC ABG pO2 ABG pO2 ABG HCO3 ABG Base Excess ABG Hemoglobin Oxyhemoglobin Sodium Potassium Chloride Carbon Dioxide BUN Creatinine Glucose POC Glucose 117 H 121 H 118 H Lactic Acid Calcium Phosphorus Magnesium Direct Bilirubin AST ALT Alkaline Phosphatase Lactate Dehydrogenase Troponin T C-Reactive Protein Total Protein Albumin Prealbumin Triglycerides Cholesterol LDL Cholesterol Direct HDL Cholesterol Urine pH Urine WBC (Auto) Urine Creatinine Urine Total Protein Fluid Total Protein Vancomycin Trough Rheumatoid Factor Complement C4 Miscellaneous Test Crossmatch 10/28/16 10/28/16 10/28/16 05:48 06:45 06:45 WBC 14.7 H RBC 3.05 L Hgb 9.0 L Hct 26.9 L MCV MCH MCHC RDW 16.8 H Plt Count Lymph % (Auto) 8.2 L [place] % (Auto) 8.4 H Lymph # [place] # 1.2 H Baso # Seg Neutrophils % 81.9 H Seg Neuts % (Manual) Lymphocytes % (Manual) Monocytes % (Manual) Eosinophils % (Manual) Basophils % (Manual) Nucleated RBC % Seg Neutrophils # 12.1 H Seg Neutrophils # Man Lymphocytes # (Manual) Monocytes # (Manual) Eosinophils # (Manual) Basophils # (Manual) PT INR Fibrinogen dRVVT Confirm Interp Factor V Activity POC ABG pH POC ABG pCO2 POC ABG pO2 ABG pO2 ABG HCO3 ABG Base Excess ABG Hemoglobin Oxyhemoglobin Sodium Potassium Chloride Carbon Dioxide BUN 60 H Creatinine 1.9 H Glucose 120 H POC Glucose 114 H Lactic Acid Calcium Phosphorus Magnesium Direct Bilirubin AST ALT Alkaline Phosphatase Lactate Dehydrogenase Troponin T C-Reactive Protein Total Protein Albumin Prealbumin Triglycerides Cholesterol LDL Cholesterol Direct HDL Cholesterol Urine pH Urine WBC (Auto) Urine Creatinine Urine Total Protein Fluid Total Protein Vancomycin Trough Rheumatoid Factor Complement C4 Miscellaneous Test Crossmatch 10/28/16 10/28/16 10/29/16 17:08 23:50 05:10 WBC RBC Hgb Hct MCV MCH MCHC RDW Plt Count Lymph % (Auto) [place] % (Auto) Lymph # [place] # Baso # Seg Neutrophils % Seg Neuts % (Manual) Lymphocytes % (Manual) Monocytes % (Manual) Eosinophils % (Manual) Basophils % (Manual) Nucleated RBC % Seg Neutrophils # Seg Neutrophils # Man Lymphocytes # (Manual) Monocytes # (Manual) Eosinophils # (Manual) Basophils # (Manual) PT INR Fibrinogen dRVVT Confirm Interp Factor V Activity POC ABG pH POC ABG pCO2 POC ABG pO2 ABG pO2 ABG HCO3 ABG Base Excess ABG Hemoglobin Oxyhemoglobin Sodium Potassium Chloride Carbon Dioxide BUN Creatinine Glucose POC Glucose 109 H 110 H 124 H Lactic Acid Calcium Phosphorus Magnesium Direct Bilirubin AST ALT Alkaline Phosphatase Lactate Dehydrogenase Troponin T C-Reactive Protein Total Protein Albumin Prealbumin Triglycerides Cholesterol LDL Cholesterol Direct HDL Cholesterol Urine pH Urine WBC (Auto) Urine Creatinine Urine Total Protein Fluid Total Protein Vancomycin Trough Rheumatoid Factor Complement C4 Miscellaneous Test Crossmatch 10/29/16 10/29/16 10/29/16 07:45 07:45 12:19 WBC 14.7 H RBC 3.15 L Hgb 9.3 L Hct 28.9 L MCV MCH MCHC RDW 17.0 H Plt Count Lymph % (Auto) 11.9 L [place] % (Auto) 8.6 H Lymph # [place] # 1.3 H Baso # Seg Neutrophils % 78.1 H Seg Neuts % (Manual) Lymphocytes % (Manual) Monocytes % (Manual) Eosinophils % (Manual) Basophils % (Manual) Nucleated RBC % Seg Neutrophils # 11.4 H Seg Neutrophils # Man Lymphocytes # (Manual) Monocytes # (Manual) Eosinophils # (Manual) Basophils # (Manual) PT INR Fibrinogen dRVVT Confirm Interp Factor V Activity POC ABG pH POC ABG pCO2 POC ABG pO2 ABG pO2 ABG HCO3 ABG Base Excess ABG Hemoglobin Oxyhemoglobin Sodium Potassium 5.1 H Chloride Carbon Dioxide 19 L BUN 78 H Creatinine 2.2 H Glucose 116 H POC Glucose 118 H Lactic Acid Calcium Phosphorus Magnesium Direct Bilirubin AST ALT Alkaline Phosphatase Lactate Dehydrogenase Troponin T C-Reactive Protein Total Protein Albumin Prealbumin Triglycerides Cholesterol LDL Cholesterol Direct HDL Cholesterol Urine pH Urine WBC (Auto) Urine Creatinine Urine Total Protein Fluid Total Protein Vancomycin Trough Rheumatoid Factor Complement C4 Miscellaneous Test Crossmatch 10/29/16 10/30/16 10/30/16 17:49 01:52 03:28 WBC RBC Hgb Hct MCV MCH MCHC RDW Plt Count Lymph % (Auto) [place] % (Auto) Lymph # [place] # Baso # Seg Neutrophils % Seg Neuts % (Manual) Lymphocytes % (Manual) Monocytes % (Manual) Eosinophils % (Manual) Basophils % (Manual) Nucleated RBC % Seg Neutrophils # Seg Neutrophils # Man Lymphocytes # (Manual) Monocytes # (Manual) Eosinophils # (Manual) Basophils # (Manual) PT INR Fibrinogen dRVVT Confirm Interp Factor V Activity POC ABG pH POC ABG pCO2 POC ABG pO2 ABG pO2 ABG HCO3 ABG Base Excess ABG Hemoglobin Oxyhemoglobin Sodium Potassium 5.4 H Chloride 97.5 L Carbon Dioxide 19 L BUN 90 H Creatinine 2.5 H Glucose POC Glucose 120 H 129 H Lactic Acid Calcium Phosphorus 5.20 H Magnesium Direct Bilirubin AST ALT Alkaline Phosphatase Lactate Dehydrogenase Troponin T C-Reactive Protein Total Protein Albumin Prealbumin Triglycerides Cholesterol LDL Cholesterol Direct HDL Cholesterol Urine pH Urine WBC (Auto) Urine Creatinine Urine Total Protein Fluid Total Protein Vancomycin Trough Rheumatoid Factor Complement C4 Miscellaneous Test Crossmatch 10/30/16 10/30/16 10/30/16 03:28 08:19 08:19 WBC 11.6 H 15.9 H RBC 2.75 L 2.82 L Hgb 7.9 L 8.3 L Hct 24.2 L 25.2 L MCV MCH MCHC RDW 16.7 H 17.2 H Plt Count Lymph % (Auto) [place] % (Auto) 9.8 H Lymph # [place] # 1.1 H Baso # Seg Neutrophils % 74.2 H Seg Neuts % (Manual) Lymphocytes % (Manual) Monocytes % (Manual) Eosinophils % (Manual) Basophils % (Manual) Nucleated RBC % Seg Neutrophils # 8.6 H Seg Neutrophils # Man Lymphocytes # (Manual) Monocytes # (Manual) Eosinophils # (Manual) Basophils # (Manual) PT INR Fibrinogen dRVVT Confirm Interp Factor V Activity POC ABG pH POC ABG pCO2 POC ABG pO2 ABG pO2 ABG HCO3 ABG Base Excess ABG Hemoglobin Oxyhemoglobin Sodium Potassium 5.3 H Chloride 97.4 L Carbon Dioxide 19 L BUN 93 H Creatinine 2.6 H Glucose POC Glucose Lactic Acid Calcium Phosphorus Magnesium Direct Bilirubin AST ALT Alkaline Phosphatase Lactate Dehydrogenase Troponin T C-Reactive Protein Total Protein Albumin Prealbumin Triglycerides Cholesterol LDL Cholesterol Direct HDL Cholesterol Urine pH Urine WBC (Auto) Urine Creatinine Urine Total Protein Fluid Total Protein Vancomycin Trough Rheumatoid Factor Complement C4 Miscellaneous Test Crossmatch 10/30/16 10/30/16 10/31/16 17:11 23:56 00:40 WBC RBC Hgb Hct MCV MCH MCHC RDW Plt Count Lymph % (Auto) [place] % (Auto) Lymph # [place] # Baso # Seg Neutrophils % Seg Neuts % (Manual) Lymphocytes % (Manual) Monocytes % (Manual) Eosinophils % (Manual) Basophils % (Manual) Nucleated RBC % Seg Neutrophils # Seg Neutrophils # Man Lymphocytes # (Manual) Monocytes # (Manual) Eosinophils # (Manual) Basophils # (Manual) PT INR Fibrinogen dRVVT Confirm Interp Factor V Activity POC ABG pH POC ABG pCO2 POC ABG pO2 ABG pO2 ABG HCO3 ABG Base Excess ABG Hemoglobin Oxyhemoglobin Sodium Potassium Chloride Carbon Dioxide BUN Creatinine Glucose POC Glucose 106 H 117 H 120 H Lactic Acid Calcium Phosphorus Magnesium Direct Bilirubin AST ALT Alkaline Phosphatase Lactate Dehydrogenase Troponin T C-Reactive Protein Total Protein Albumin Prealbumin Triglycerides Cholesterol LDL Cholesterol Direct HDL Cholesterol Urine pH Urine WBC (Auto) Urine Creatinine Urine Total Protein Fluid Total Protein Vancomycin Trough Rheumatoid Factor Complement C4 Miscellaneous Test Crossmatch 10/31/16 10/31/16 10/31/16 05:43 07:15 07:15 WBC 12.1 H RBC 2.63 L Hgb 7.7 L Hct 23.3 L MCV MCH MCHC RDW 16.7 H Plt Count Lymph % (Auto) 11.7 L [place] % (Auto) 7.7 H Lymph # [place] # 0.9 H Baso # Seg Neutrophils % 78.0 H Seg Neuts % (Manual) Lymphocytes % (Manual) Monocytes % (Manual) Eosinophils % (Manual) Basophils % (Manual) Nucleated RBC % Seg Neutrophils # 9.4 H Seg Neutrophils # Man Lymphocytes # (Manual) Monocytes # (Manual) Eosinophils # (Manual) Basophils # (Manual) PT INR Fibrinogen dRVVT Confirm Interp Factor V Activity POC ABG pH POC ABG pCO2 POC ABG pO2 ABG pO2 ABG HCO3 ABG Base Excess ABG Hemoglobin Oxyhemoglobin Sodium Potassium Chloride 96.4 L Carbon Dioxide 21 L BUN 99 H Creatinine 2.6 H Glucose 144 H POC Glucose 125 H Lactic Acid Calcium Phosphorus 4.80 H Magnesium Direct Bilirubin AST ALT Alkaline Phosphatase Lactate Dehydrogenase Troponin T C-Reactive Protein Total Protein Albumin Prealbumin Triglycerides Cholesterol LDL Cholesterol Direct HDL Cholesterol Urine pH Urine WBC (Auto) Urine Creatinine Urine Total Protein Fluid Total Protein Vancomycin Trough Rheumatoid Factor Complement C4 Miscellaneous Test Crossmatch 10/31/16 10/31/16 11/01/16 11:46 18:34 00:20 WBC RBC Hgb Hct MCV MCH MCHC RDW Plt Count Lymph % (Auto) [place] % (Auto) Lymph # [place] # Baso # Seg Neutrophils % Seg Neuts % (Manual) Lymphocytes % (Manual) Monocytes % (Manual) Eosinophils % (Manual) Basophils % (Manual) Nucleated RBC % Seg Neutrophils # Seg Neutrophils # Man Lymphocytes # (Manual) Monocytes # (Manual) Eosinophils # (Manual) Basophils # (Manual) PT INR Fibrinogen dRVVT Confirm Interp Factor V Activity POC ABG pH POC ABG pCO2 POC ABG pO2 ABG pO2 ABG HCO3 ABG Base Excess ABG Hemoglobin Oxyhemoglobin Sodium Potassium Chloride Carbon Dioxide BUN Creatinine Glucose POC Glucose 159 H 140 H 132 H Lactic Acid Calcium Phosphorus Magnesium Direct Bilirubin AST ALT Alkaline Phosphatase Lactate Dehydrogenase Troponin T C-Reactive Protein Total Protein Albumin Prealbumin Triglycerides Cholesterol LDL Cholesterol Direct HDL Cholesterol Urine pH Urine WBC (Auto) Urine Creatinine Urine Total Protein Fluid Total Protein Vancomycin Trough Rheumatoid Factor Complement C4 Miscellaneous Test Crossmatch 11/01/16 11/01/16 11/01/16 04:55 04:55 06:11 WBC 11.2 H RBC 2.68 L Hgb 7.5 L Hct 23.7 L MCV MCH MCHC RDW 16.1 H Plt Count Lymph % (Auto) [place] % (Auto) 9.8 H Lymph # [place] # 1.1 H Baso # Seg Neutrophils % 70.8 H Seg Neuts % (Manual) Lymphocytes % (Manual) Monocytes % (Manual) Eosinophils % (Manual) Basophils % (Manual) Nucleated RBC % Seg Neutrophils # 7.9 H Seg Neutrophils # Man Lymphocytes # (Manual) Monocytes # (Manual) Eosinophils # (Manual) Basophils # (Manual) PT INR Fibrinogen dRVVT Confirm Interp Factor V Activity POC ABG pH POC ABG pCO2 POC ABG pO2 ABG pO2 ABG HCO3 ABG Base Excess ABG Hemoglobin Oxyhemoglobin Sodium Potassium 3.3 L D Chloride Carbon Dioxide BUN 61 H Creatinine 1.9 H Glucose 114 H POC Glucose 115 H Lactic Acid Calcium Phosphorus 1.80 L D Magnesium Direct Bilirubin AST ALT Alkaline Phosphatase Lactate Dehydrogenase Troponin T C-Reactive Protein Total Protein Albumin Prealbumin Triglycerides Cholesterol LDL Cholesterol Direct HDL Cholesterol Urine pH Urine WBC (Auto) Urine Creatinine Urine Total Protein Fluid Total Protein Vancomycin Trough Rheumatoid Factor Complement C4 Miscellaneous Test Crossmatch 11/01/16 11/01/16 11/01/16 12:29 18:23 23:58 WBC RBC Hgb Hct MCV MCH MCHC RDW Plt Count Lymph % (Auto) [place] % (Auto) Lymph # [place] # Baso # Seg Neutrophils % Seg Neuts % (Manual) Lymphocytes % (Manual) Monocytes % (Manual) Eosinophils % (Manual) Basophils % (Manual) Nucleated RBC % Seg Neutrophils # Seg Neutrophils # Man Lymphocytes # (Manual) Monocytes # (Manual) Eosinophils # (Manual) Basophils # (Manual) PT INR Fibrinogen dRVVT Confirm Interp Factor V Activity POC ABG pH POC ABG pCO2 POC ABG pO2 ABG pO2 ABG HCO3 ABG Base Excess ABG Hemoglobin Oxyhemoglobin Sodium Potassium Chloride Carbon Dioxide BUN Creatinine Glucose POC Glucose 142 H 143 H 128 H Lactic Acid Calcium Phosphorus Magnesium Direct Bilirubin AST ALT Alkaline Phosphatase Lactate Dehydrogenase Troponin T C-Reactive Protein Total Protein Albumin Prealbumin Triglycerides Cholesterol LDL Cholesterol Direct HDL Cholesterol Urine pH Urine WBC (Auto) Urine Creatinine Urine Total Protein Fluid Total Protein Vancomycin Trough Rheumatoid Factor Complement C4 Miscellaneous Test Crossmatch 11/02/16 11/02/16 11/02/16 04:16 05:29 11:58 WBC RBC Hgb Hct MCV MCH MCHC RDW Plt Count Lymph % (Auto) [place] % (Auto) Lymph # [place] # Baso # Seg Neutrophils % Seg Neuts % (Manual) Lymphocytes % (Manual) Monocytes % (Manual) Eosinophils % (Manual) Basophils % (Manual) Nucleated RBC % Seg Neutrophils # Seg Neutrophils # Man Lymphocytes # (Manual) Monocytes # (Manual) Eosinophils # (Manual) Basophils # (Manual) PT INR Fibrinogen dRVVT Confirm Interp Factor V Activity POC ABG pH POC ABG pCO2 POC ABG pO2 ABG pO2 ABG HCO3 ABG Base Excess ABG Hemoglobin Oxyhemoglobin Sodium Potassium 3.1 L Chloride Carbon Dioxide BUN 73 H Creatinine 2.3 H Glucose 112 H POC Glucose 135 H 149 H Lactic Acid Calcium Phosphorus Magnesium Direct Bilirubin AST ALT Alkaline Phosphatase Lactate Dehydrogenase Troponin T C-Reactive Protein Total Protein Albumin Prealbumin Triglycerides Cholesterol LDL Cholesterol Direct HDL Cholesterol Urine pH Urine WBC (Auto) Urine Creatinine Urine Total Protein Fluid Total Protein Vancomycin Trough Rheumatoid Factor Complement C4 Miscellaneous Test Crossmatch 11/02/16 11/02/16 11/03/16 17:42 22:54 06:00 WBC RBC Hgb Hct MCV MCH MCHC RDW Plt Count Lymph % (Auto) [place] % (Auto) Lymph # [place] # Baso # Seg Neutrophils % Seg Neuts % (Manual) Lymphocytes % (Manual) Monocytes % (Manual) Eosinophils % (Manual) Basophils % (Manual) Nucleated RBC % Seg Neutrophils # Seg Neutrophils # Man Lymphocytes # (Manual) Monocytes # (Manual) Eosinophils # (Manual) Basophils # (Manual) PT INR Fibrinogen dRVVT Confirm Interp Factor V Activity POC ABG pH POC ABG pCO2 POC ABG pO2 ABG pO2 ABG HCO3 ABG Base Excess ABG Hemoglobin Oxyhemoglobin Sodium Potassium Chloride 96.7 L Carbon Dioxide BUN 41 H Creatinine 1.5 H Glucose 145 H POC Glucose 182 H 115 H Lactic Acid Calcium Phosphorus 1.60 L D Magnesium 1.50 L Direct Bilirubin AST ALT Alkaline Phosphatase Lactate Dehydrogenase Troponin T C-Reactive Protein Total Protein Albumin Prealbumin Triglycerides Cholesterol LDL Cholesterol Direct HDL Cholesterol Urine pH Urine WBC (Auto) Urine Creatinine Urine Total Protein Fluid Total Protein Vancomycin Trough Rheumatoid Factor Complement C4 Miscellaneous Test Crossmatch 11/03/16 11/03/16 11/03/16 11:53 17:45 23:37 WBC RBC Hgb Hct MCV MCH MCHC RDW Plt Count Lymph % (Auto) [place] % (Auto) Lymph # [place] # Baso # Seg Neutrophils % Seg Neuts % (Manual) Lymphocytes % (Manual) Monocytes % (Manual) Eosinophils % (Manual) Basophils % (Manual) Nucleated RBC % Seg Neutrophils # Seg Neutrophils # Man Lymphocytes # (Manual) Monocytes # (Manual) Eosinophils # (Manual) Basophils # (Manual) PT INR Fibrinogen dRVVT Confirm Interp Factor V Activity POC ABG pH POC ABG pCO2 POC ABG pO2 ABG pO2 ABG HCO3 ABG Base Excess ABG Hemoglobin Oxyhemoglobin Sodium Potassium Chloride Carbon Dioxide BUN Creatinine Glucose POC Glucose 131 H 134 H 113 H Lactic Acid Calcium Phosphorus Magnesium Direct Bilirubin AST ALT Alkaline Phosphatase Lactate Dehydrogenase Troponin T C-Reactive Protein Total Protein Albumin Prealbumin Triglycerides Cholesterol LDL Cholesterol Direct HDL Cholesterol Urine pH Urine WBC (Auto) Urine Creatinine Urine Total Protein Fluid Total Protein Vancomycin Trough Rheumatoid Factor Complement C4 Miscellaneous Test Crossmatch 11/04/16 11/04/16 11/04/16 05:41 06:00 12:10 WBC RBC Hgb Hct MCV MCH MCHC RDW Plt Count Lymph % (Auto) [place] % (Auto) Lymph # [place] # Baso # Seg Neutrophils % Seg Neuts % (Manual) Lymphocytes % (Manual) Monocytes % (Manual) Eosinophils % (Manual) Basophils % (Manual) Nucleated RBC % Seg Neutrophils # Seg Neutrophils # Man Lymphocytes # (Manual) Monocytes # (Manual) Eosinophils # (Manual) Basophils # (Manual) PT INR Fibrinogen dRVVT Confirm Interp Factor V Activity POC ABG pH POC ABG pCO2 POC ABG pO2 ABG pO2 ABG HCO3 ABG Base Excess ABG Hemoglobin Oxyhemoglobin Sodium Potassium Chloride 96.7 L Carbon Dioxide BUN 52 H Creatinine 1.9 H Glucose 126 H POC Glucose 137 H 191 H Lactic Acid Calcium Phosphorus Magnesium Direct Bilirubin AST ALT Alkaline Phosphatase Lactate Dehydrogenase Troponin T C-Reactive Protein Total Protein Albumin Prealbumin Triglycerides Cholesterol LDL Cholesterol Direct HDL Cholesterol Urine pH Urine WBC (Auto) Urine Creatinine Urine Total Protein Fluid Total Protein Vancomycin Trough Rheumatoid Factor Complement C4 Miscellaneous Test Crossmatch 11/04/16 11/05/16 11/05/16 22:57 03:10 05:10 WBC RBC Hgb Hct MCV MCH MCHC RDW Plt Count Lymph % (Auto) [place] % (Auto) Lymph # [place] # Baso # Seg Neutrophils % Seg Neuts % (Manual) Lymphocytes % (Manual) Monocytes % (Manual) Eosinophils % (Manual) Basophils % (Manual) Nucleated RBC % Seg Neutrophils # Seg Neutrophils # Man Lymphocytes # (Manual) Monocytes # (Manual) Eosinophils # (Manual) Basophils # (Manual) PT INR Fibrinogen dRVVT Confirm Interp Factor V Activity POC ABG pH POC ABG pCO2 POC ABG pO2 ABG pO2 ABG HCO3 ABG Base Excess ABG Hemoglobin Oxyhemoglobin Sodium 136 L Potassium Chloride 97.2 L Carbon Dioxide BUN 32 H Creatinine 1.3 H Glucose 123 H POC Glucose 125 H 108 H Lactic Acid Calcium 7.8 L Phosphorus Magnesium Direct Bilirubin AST ALT Alkaline Phosphatase Lactate Dehydrogenase Troponin T C-Reactive Protein Total Protein Albumin Prealbumin Triglycerides Cholesterol LDL Cholesterol Direct HDL Cholesterol Urine pH Urine WBC (Auto) Urine Creatinine Urine Total Protein Fluid Total Protein Vancomycin Trough Rheumatoid Factor Complement C4 Miscellaneous Test Crossmatch 11/05/16 11/05/16 11/05/16 12:23 13:09 13:25 WBC RBC Hgb Hct MCV MCH MCHC RDW Plt Count Lymph % (Auto) [place] % (Auto) Lymph # [place] # Baso # Seg Neutrophils % Seg Neuts % (Manual) Lymphocytes % (Manual) Monocytes % (Manual) Eosinophils % (Manual) Basophils % (Manual) Nucleated RBC % Seg Neutrophils # Seg Neutrophils # Man Lymphocytes # (Manual) Monocytes # (Manual) Eosinophils # (Manual) Basophils # (Manual) PT INR Fibrinogen dRVVT Confirm Interp Factor V Activity POC ABG pH POC ABG pCO2 POC ABG pO2 ABG pO2 ABG HCO3 ABG Base Excess ABG Hemoglobin Oxyhemoglobin Sodium Potassium Chloride Carbon Dioxide BUN Creatinine Glucose POC Glucose 124 H Lactic Acid Calcium Phosphorus Magnesium Direct Bilirubin AST ALT Alkaline Phosphatase Lactate Dehydrogenase Troponin T C-Reactive Protein 11.40 H Total Protein Albumin Prealbumin Triglycerides Cholesterol LDL Cholesterol Direct HDL Cholesterol Urine pH 9.0 H Urine WBC (Auto) Urine Creatinine Urine Total Protein Fluid Total Protein Vancomycin Trough Rheumatoid Factor Complement C4 Miscellaneous Test Crossmatch 11/05/16 11/05/16 11/05/16 13:25 17:54 23:42 WBC RBC Hgb Hct MCV MCH MCHC RDW Plt Count Lymph % (Auto) [place] % (Auto) Lymph # [place] # Baso # Seg Neutrophils % Seg Neuts % (Manual) Lymphocytes % (Manual) Monocytes % (Manual) Eosinophils % (Manual) Basophils % (Manual) Nucleated RBC % Seg Neutrophils # Seg Neutrophils # Man Lymphocytes # (Manual) Monocytes # (Manual) Eosinophils # (Manual) Basophils # (Manual) PT INR Fibrinogen dRVVT Confirm Interp Factor V Activity POC ABG pH POC ABG pCO2 POC ABG pO2 ABG pO2 ABG HCO3 ABG Base Excess ABG Hemoglobin Oxyhemoglobin Sodium Potassium Chloride Carbon Dioxide BUN Creatinine Glucose POC Glucose 114 H 134 H Lactic Acid Calcium Phosphorus Magnesium Direct Bilirubin AST ALT Alkaline Phosphatase Lactate Dehydrogenase Troponin T C-Reactive Protein Total Protein Albumin Prealbumin Triglycerides Cholesterol LDL Cholesterol Direct HDL Cholesterol Urine pH Urine WBC (Auto) Urine Creatinine Urine Total Protein Fluid Total Protein Vancomycin Trough Rheumatoid Factor Complement C4 Miscellaneous Test Flexitest 1 H Crossmatch 11/06/16 11/06/16 11/06/16 04:56 06:25 06:25 WBC RBC 2.50 L Hgb 7.3 L Hct 22.5 L MCV MCH MCHC RDW 16.9 H Plt Count Lymph % (Auto) [place] % (Auto) 10.5 H Lymph # [place] # 1.1 H Baso # Seg Neutrophils % Seg Neuts % (Manual) Lymphocytes % (Manual) Monocytes % (Manual) Eosinophils % (Manual) Basophils % (Manual) Nucleated RBC % Seg Neutrophils # Seg Neutrophils # Man Lymphocytes # (Manual) Monocytes # (Manual) Eosinophils # (Manual) Basophils # (Manual) PT INR Fibrinogen dRVVT Confirm Interp Factor V Activity POC ABG pH POC ABG pCO2 POC ABG pO2 ABG pO2 ABG HCO3 ABG Base Excess ABG Hemoglobin Oxyhemoglobin Sodium Potassium 5.1 H Chloride 95.9 L Carbon Dioxide BUN 52 H Creatinine 1.8 H Glucose 117 H POC Glucose 120 H Lactic Acid Calcium Phosphorus Magnesium Direct Bilirubin AST 103 H ALT 77 H Alkaline Phosphatase 285 H Lactate Dehydrogenase Troponin T C-Reactive Protein Total Protein 6.2 L Albumin 1.8 L Prealbumin 0.180 L Triglycerides Cholesterol LDL Cholesterol Direct HDL Cholesterol Urine pH Urine WBC (Auto) Urine Creatinine Urine Total Protein Fluid Total Protein Vancomycin Trough Rheumatoid Factor Complement C4 Miscellaneous Test Crossmatch 11/06/16 11/06/16 11/06/16 11:56 17:14 23:52 WBC RBC Hgb Hct MCV MCH MCHC RDW Plt Count Lymph % (Auto) [place] % (Auto) Lymph # [place] # Baso # Seg Neutrophils % Seg Neuts % (Manual) Lymphocytes % (Manual) Monocytes % (Manual) Eosinophils % (Manual) Basophils % (Manual) Nucleated RBC % Seg Neutrophils # Seg Neutrophils # Man Lymphocytes # (Manual) Monocytes # (Manual) Eosinophils # (Manual) Basophils # (Manual) PT INR Fibrinogen dRVVT Confirm Interp Factor V Activity POC ABG pH POC ABG pCO2 POC ABG pO2 ABG pO2 ABG HCO3 ABG Base Excess ABG Hemoglobin Oxyhemoglobin Sodium Potassium Chloride Carbon Dioxide BUN Creatinine Glucose POC Glucose 141 H 125 H 130 H Lactic Acid Calcium Phosphorus Magnesium Direct Bilirubin AST ALT Alkaline Phosphatase Lactate Dehydrogenase Troponin T C-Reactive Protein Total Protein Albumin Prealbumin Triglycerides Cholesterol LDL Cholesterol Direct HDL Cholesterol Urine pH Urine WBC (Auto) Urine Creatinine Urine Total Protein Fluid Total Protein Vancomycin Trough Rheumatoid Factor Complement C4 Miscellaneous Test Crossmatch 11/07/16 11/07/16 11/07/16 06:30 06:30 09:37 WBC RBC 2.18 L Hgb 6.3 L Hct 19.7 L* MCV MCH MCHC RDW 16.8 H Plt Count Lymph % (Auto) [place] % (Auto) 10.0 H Lymph # [place] # 1.0 H Baso # Seg Neutrophils % Seg Neuts % (Manual) Lymphocytes % (Manual) Monocytes % (Manual) Eosinophils % (Manual) Basophils % (Manual) Nucleated RBC % Seg Neutrophils # Seg Neutrophils # Man Lymphocytes # (Manual) Monocytes # (Manual) Eosinophils # (Manual) Basophils # (Manual) PT INR Fibrinogen dRVVT Confirm Interp Factor V Activity POC ABG pH POC ABG pCO2 POC ABG pO2 ABG pO2 ABG HCO3 ABG Base Excess ABG Hemoglobin Oxyhemoglobin Sodium 135 L Potassium Chloride 95.6 L Carbon Dioxide BUN 70 H Creatinine 2.0 H Glucose 126 H POC Glucose Lactic Acid Calcium Phosphorus Magnesium Direct Bilirubin AST ALT Alkaline Phosphatase Lactate Dehydrogenase Troponin T C-Reactive Protein Total Protein Albumin Prealbumin Triglycerides Cholesterol LDL Cholesterol Direct HDL Cholesterol Urine pH Urine WBC (Auto) Urine Creatinine Urine Total Protein Fluid Total Protein Vancomycin Trough Rheumatoid Factor Complement C4 Miscellaneous Test Crossmatch See Detail 11/07/16 11/07/16 11/07/16 12:52 18:51 21:26 WBC RBC Hgb Hct MCV MCH MCHC RDW Plt Count Lymph % (Auto) [place] % (Auto) Lymph # [place] # Baso # Seg Neutrophils % Seg Neuts % (Manual) Lymphocytes % (Manual) Monocytes % (Manual) Eosinophils % (Manual) Basophils % (Manual) Nucleated RBC % Seg Neutrophils # Seg Neutrophils # Man Lymphocytes # (Manual) Monocytes # (Manual) Eosinophils # (Manual) Basophils # (Manual) PT INR Fibrinogen dRVVT Confirm Interp Factor V Activity POC ABG pH 7.523 H POC ABG pCO2 34.6 L POC ABG pO2 53 L ABG pO2 ABG HCO3 ABG Base Excess ABG Hemoglobin Oxyhemoglobin Sodium Potassium Chloride Carbon Dioxide BUN Creatinine Glucose POC Glucose 142 H 155 H Lactic Acid Calcium Phosphorus Magnesium Direct Bilirubin AST ALT Alkaline Phosphatase Lactate Dehydrogenase Troponin T C-Reactive Protein Total Protein Albumin Prealbumin Triglycerides Cholesterol LDL Cholesterol Direct HDL Cholesterol Urine pH Urine WBC (Auto) Urine Creatinine Urine Total Protein Fluid Total Protein Vancomycin Trough Rheumatoid Factor Complement C4 Miscellaneous Test Crossmatch 11/07/16 11/08/16 11/08/16 21:34 13:03 23:37 WBC RBC 2.63 L Hgb 7.7 L Hct 22.7 L MCV MCH MCHC RDW 17.0 H Plt Count Lymph % (Auto) [place] % (Auto) Lymph # [place] # Baso # Seg Neutrophils % Seg Neuts % (Manual) Lymphocytes % (Manual) Monocytes % (Manual) Eosinophils % (Manual) Basophils % (Manual) Nucleated RBC % Seg Neutrophils # Seg Neutrophils # Man Lymphocytes # (Manual) Monocytes # (Manual) Eosinophils # (Manual) Basophils # (Manual) PT INR Fibrinogen dRVVT Confirm Interp Factor V Activity POC ABG pH 7.478 H POC ABG pCO2 34.0 L POC ABG pO2 50 L ABG pO2 ABG HCO3 ABG Base Excess ABG Hemoglobin Oxyhemoglobin Sodium Potassium Chloride Carbon Dioxide BUN Creatinine Glucose POC Glucose 113 H Lactic Acid Calcium Phosphorus Magnesium Direct Bilirubin AST ALT Alkaline Phosphatase Lactate Dehydrogenase Troponin T C-Reactive Protein Total Protein Albumin Prealbumin Triglycerides Cholesterol LDL Cholesterol Direct HDL Cholesterol Urine pH Urine WBC (Auto) Urine Creatinine Urine Total Protein Fluid Total Protein Vancomycin Trough Rheumatoid Factor Complement C4 Miscellaneous Test Crossmatch 11/09/16 11/09/16 11/09/16 04:35 10:15 18:21 WBC RBC 2.68 L Hgb 7.8 L Hct 23.3 L MCV MCH MCHC RDW 17.0 H Plt Count Lymph % (Auto) [place] % (Auto) 12.1 H Lymph # [place] # 1.1 H Baso # Seg Neutrophils % Seg Neuts % (Manual) Lymphocytes % (Manual) Monocytes % (Manual) Eosinophils % (Manual) Basophils % (Manual) Nucleated RBC % Seg Neutrophils # Seg Neutrophils # Man Lymphocytes # (Manual) Monocytes # (Manual) Eosinophils # (Manual) Basophils # (Manual) PT INR Fibrinogen dRVVT Confirm Interp Factor V Activity POC ABG pH POC ABG pCO2 POC ABG pO2 ABG pO2 ABG HCO3 ABG Base Excess ABG Hemoglobin Oxyhemoglobin Sodium Potassium Chloride Carbon Dioxide BUN 51 H Creatinine 1.8 H Glucose POC Glucose 60 L Lactic Acid Calcium 8.3 L Phosphorus Magnesium Direct Bilirubin AST ALT Alkaline Phosphatase Lactate Dehydrogenase Troponin T C-Reactive Protein Total Protein Albumin Prealbumin Triglycerides Cholesterol LDL Cholesterol Direct HDL Cholesterol Urine pH Urine WBC (Auto) Urine Creatinine Urine Total Protein Fluid Total Protein Vancomycin Trough Rheumatoid Factor Complement C4 Miscellaneous Test Crossmatch 11/09/16 11/10/16 11/10/16 18:55 07:00 11:51 WBC RBC Hgb Hct MCV MCH MCHC RDW Plt Count Lymph % (Auto) [place] % (Auto) Lymph # [place] # Baso # Seg Neutrophils % Seg Neuts % (Manual) Lymphocytes % (Manual) Monocytes % (Manual) Eosinophils % (Manual) Basophils % (Manual) Nucleated RBC % Seg Neutrophils # Seg Neutrophils # Man Lymphocytes # (Manual) Monocytes # (Manual) Eosinophils # (Manual) Basophils # (Manual) PT INR Fibrinogen dRVVT Confirm Interp Factor V Activity POC ABG pH POC ABG pCO2 POC ABG pO2 ABG pO2 ABG HCO3 ABG Base Excess ABG Hemoglobin Oxyhemoglobin Sodium Potassium 3.0 L D Chloride 97.4 L Carbon Dioxide BUN 28 H Creatinine 1.3 H Glucose POC Glucose 68 L 120 H Lactic Acid Calcium 7.8 L Phosphorus Magnesium Direct Bilirubin AST ALT Alkaline Phosphatase Lactate Dehydrogenase Troponin T C-Reactive Protein Total Protein Albumin Prealbumin Triglycerides Cholesterol LDL Cholesterol Direct HDL Cholesterol Urine pH Urine WBC (Auto) Urine Creatinine Urine Total Protein Fluid Total Protein Vancomycin Trough Rheumatoid Factor Complement C4 Miscellaneous Test Crossmatch 11/10/16 11/11/16 11/11/16 14:20 06:59 06:59 WBC RBC 2.81 L Hgb 8.1 L Hct 24.4 L MCV MCH MCHC RDW 16.4 H Plt Count Lymph % (Auto) [place] % (Auto) 10.8 H Lymph # [place] # 1.0 H Baso # Seg Neutrophils % Seg Neuts % (Manual) Lymphocytes % (Manual) Monocytes % (Manual) Eosinophils % (Manual) Basophils % (Manual) Nucleated RBC % Seg Neutrophils # Seg Neutrophils # Man Lymphocytes # (Manual) Monocytes # (Manual) Eosinophils # (Manual) Basophils # (Manual) PT INR Fibrinogen dRVVT Confirm Interp Factor V Activity POC ABG pH POC ABG pCO2 POC ABG pO2 ABG pO2 ABG HCO3 ABG Base Excess ABG Hemoglobin Oxyhemoglobin Sodium Potassium Chloride Carbon Dioxide BUN Creatinine Glucose POC Glucose Lactic Acid Calcium Phosphorus Magnesium Direct Bilirubin AST ALT Alkaline Phosphatase Lactate Dehydrogenase 196 H Troponin T C-Reactive Protein Total Protein 6.1 L Albumin Prealbumin Triglycerides Cholesterol LDL Cholesterol Direct HDL Cholesterol Urine pH Urine WBC (Auto) Urine Creatinine Urine Total Protein Fluid Total Protein < 3.0 L Vancomycin Trough Rheumatoid Factor Complement C4 Miscellaneous Test Crossmatch 11/11/16 11/11/16 11/12/16 06:59 09:50 04:00 WBC RBC Hgb Hct MCV MCH MCHC RDW Plt Count Lymph % (Auto) [place] % (Auto) Lymph # [place] # Baso # Seg Neutrophils % Seg Neuts % (Manual) Lymphocytes % (Manual) Monocytes % (Manual) Eosinophils % (Manual) Basophils % (Manual) Nucleated RBC % Seg Neutrophils # Seg Neutrophils # Man Lymphocytes # (Manual) Monocytes # (Manual) Eosinophils # (Manual) Basophils # (Manual) PT INR 1.18 H Fibrinogen dRVVT Confirm Interp Factor V Activity POC ABG pH POC ABG pCO2 POC ABG pO2 ABG pO2 ABG HCO3 ABG Base Excess ABG Hemoglobin Oxyhemoglobin Sodium 136 L 133 L Potassium Chloride 96.1 L 94.8 L Carbon Dioxide 21 L BUN 37 H 42 H Creatinine 1.8 H 2.0 H Glucose POC Glucose Lactic Acid Calcium Phosphorus Magnesium Direct Bilirubin AST ALT Alkaline Phosphatase Lactate Dehydrogenase Troponin T C-Reactive Protein Total Protein Albumin Prealbumin Triglycerides Cholesterol LDL Cholesterol Direct HDL Cholesterol Urine pH Urine WBC (Auto) Urine Creatinine Urine Total Protein Fluid Total Protein Vancomycin Trough Rheumatoid Factor Complement C4 Miscellaneous Test Crossmatch 11/12/16 11/12/16 11/13/16 04:00 23:55 05:53 WBC RBC Hgb 8.9 L Hct 27.2 L MCV MCH MCHC RDW Plt Count Lymph % (Auto) [place] % (Auto) Lymph # [place] # Baso # Seg Neutrophils % Seg Neuts % (Manual) Lymphocytes % (Manual) Monocytes % (Manual) Eosinophils % (Manual) Basophils % (Manual) Nucleated RBC % Seg Neutrophils # Seg Neutrophils # Man Lymphocytes # (Manual) Monocytes # (Manual) Eosinophils # (Manual) Basophils # (Manual) PT INR Fibrinogen dRVVT Confirm Interp Factor V Activity POC ABG pH POC ABG pCO2 POC ABG pO2 ABG pO2 ABG HCO3 ABG Base Excess ABG Hemoglobin Oxyhemoglobin Sodium Potassium Chloride Carbon Dioxide BUN Creatinine Glucose POC Glucose 132 H 120 H Lactic Acid Calcium Phosphorus Magnesium Direct Bilirubin AST ALT Alkaline Phosphatase Lactate Dehydrogenase Troponin T C-Reactive Protein Total Protein Albumin Prealbumin Triglycerides Cholesterol LDL Cholesterol Direct HDL Cholesterol Urine pH Urine WBC (Auto) Urine Creatinine Urine Total Protein Fluid Total Protein Vancomycin Trough Rheumatoid Factor Complement C4 Miscellaneous Test Crossmatch 11/13/16 11/13/16 11/13/16 11:43 17:09 23:41 WBC RBC Hgb Hct MCV MCH MCHC RDW Plt Count Lymph % (Auto) [place] % (Auto) Lymph # [place] # Baso # Seg Neutrophils % Seg Neuts % (Manual) Lymphocytes % (Manual) Monocytes % (Manual) Eosinophils % (Manual) Basophils % (Manual) Nucleated RBC % Seg Neutrophils # Seg Neutrophils # Man Lymphocytes # (Manual) Monocytes # (Manual) Eosinophils # (Manual) Basophils # (Manual) PT INR Fibrinogen dRVVT Confirm Interp Factor V Activity POC ABG pH POC ABG pCO2 POC ABG pO2 ABG pO2 ABG HCO3 ABG Base Excess ABG Hemoglobin Oxyhemoglobin Sodium Potassium Chloride Carbon Dioxide BUN Creatinine Glucose POC Glucose 114 H 113 H 108 H Lactic Acid Calcium Phosphorus Magnesium Direct Bilirubin AST ALT Alkaline Phosphatase Lactate Dehydrogenase Troponin T C-Reactive Protein Total Protein Albumin Prealbumin Triglycerides Cholesterol LDL Cholesterol Direct HDL Cholesterol Urine pH Urine WBC (Auto) Urine Creatinine Urine Total Protein Fluid Total Protein Vancomycin Trough Rheumatoid Factor Complement C4 Miscellaneous Test Crossmatch 11/13/16 11/15/16 11/15/16 Unknown 00:37 03:30 WBC 11.2 H RBC 2.72 L Hgb 7.6 L Hct 23.4 L MCV MCH MCHC RDW 16.5 H Plt Count Lymph % (Auto) [place] % (Auto) Lymph # [place] # Baso # Seg Neutrophils % Seg Neuts % (Manual) Lymphocytes % (Manual) Monocytes % (Manual) Eosinophils % (Manual) Basophils % (Manual) Nucleated RBC % Seg Neutrophils # Seg Neutrophils # Man Lymphocytes # (Manual) Monocytes # (Manual) Eosinophils # (Manual) Basophils # (Manual) PT INR Fibrinogen dRVVT Confirm Interp Factor V Activity POC ABG pH POC ABG pCO2 POC ABG pO2 ABG pO2 ABG HCO3 ABG Base Excess ABG Hemoglobin Oxyhemoglobin Sodium 135 L Potassium Chloride 95.2 L Carbon Dioxide BUN 52 H Creatinine 2.2 H Glucose POC Glucose 108 H Lactic Acid Calcium Phosphorus Magnesium Direct Bilirubin AST ALT Alkaline Phosphatase Lactate Dehydrogenase Troponin T C-Reactive Protein Total Protein Albumin Prealbumin Triglycerides Cholesterol LDL Cholesterol Direct HDL Cholesterol Urine pH Urine WBC (Auto) Urine Creatinine Urine Total Protein Fluid Total Protein Vancomycin Trough Rheumatoid Factor Complement C4 Miscellaneous Test Crossmatch 11/15/16 11/15/16 11/15/16 03:30 05:04 11:50 WBC RBC Hgb Hct MCV MCH MCHC RDW Plt Count Lymph % (Auto) [place] % (Auto) Lymph # [place] # Baso # Seg Neutrophils % Seg Neuts % (Manual) Lymphocytes % (Manual) Monocytes % (Manual) Eosinophils % (Manual) Basophils % (Manual) Nucleated RBC % Seg Neutrophils # Seg Neutrophils # Man Lymphocytes # (Manual) Monocytes # (Manual) Eosinophils # (Manual) Basophils # (Manual) PT INR Fibrinogen dRVVT Confirm Interp Factor V Activity POC ABG pH POC ABG pCO2 POC ABG pO2 ABG pO2 ABG HCO3 ABG Base Excess ABG Hemoglobin Oxyhemoglobin Sodium Potassium 3.4 L Chloride Carbon Dioxide BUN 25 H Creatinine 1.5 H Glucose 103 H POC Glucose 121 H 144 H Lactic Acid Calcium Phosphorus Magnesium Direct Bilirubin AST ALT Alkaline Phosphatase Lactate Dehydrogenase Troponin T C-Reactive Protein Total Protein Albumin Prealbumin Triglycerides Cholesterol LDL Cholesterol Direct HDL Cholesterol Urine pH Urine WBC (Auto) Urine Creatinine Urine Total Protein Fluid Total Protein Vancomycin Trough Rheumatoid Factor Complement C4 Miscellaneous Test Crossmatch 11/15/16 11/15/16 11/16/16 21:28 23:20 11:44 WBC RBC Hgb Hct MCV MCH MCHC RDW Plt Count Lymph % (Auto) [place] % (Auto) Lymph # [place] # Baso # Seg Neutrophils % Seg Neuts % (Manual) Lymphocytes % (Manual) Monocytes % (Manual) Eosinophils % (Manual) Basophils % (Manual) Nucleated RBC % Seg Neutrophils # Seg Neutrophils # Man Lymphocytes # (Manual) Monocytes # (Manual) Eosinophils # (Manual) Basophils # (Manual) PT INR Fibrinogen dRVVT Confirm Interp Factor V Activity POC ABG pH 7.462 H POC ABG pCO2 POC ABG pO2 71 L ABG pO2 ABG HCO3 ABG Base Excess ABG Hemoglobin Oxyhemoglobin Sodium Potassium Chloride Carbon Dioxide BUN Creatinine Glucose POC Glucose 116 H 133 H Lactic Acid Calcium Phosphorus Magnesium Direct Bilirubin AST ALT Alkaline Phosphatase Lactate Dehydrogenase Troponin T C-Reactive Protein Total Protein Albumin Prealbumin Triglycerides Cholesterol LDL Cholesterol Direct HDL Cholesterol Urine pH Urine WBC (Auto) Urine Creatinine Urine Total Protein Fluid Total Protein Vancomycin Trough Rheumatoid Factor Complement C4 Miscellaneous Test Crossmatch 11/16/16 11/16/16 11/16/16 12:20 17:05 23:35 WBC 11.7 H RBC 2.73 L Hgb 7.6 L Hct 23.7 L MCV MCH MCHC RDW 16.6 H Plt Count Lymph % (Auto) [place] % (Auto) Lymph # [place] # Baso # Seg Neutrophils % Seg Neuts % (Manual) Lymphocytes % (Manual) Monocytes % (Manual) Eosinophils % (Manual) Basophils % (Manual) Nucleated RBC % Seg Neutrophils # Seg Neutrophils # Man Lymphocytes # (Manual) Monocytes # (Manual) Eosinophils # (Manual) Basophils # (Manual) PT INR Fibrinogen dRVVT Confirm Interp Factor V Activity POC ABG pH POC ABG pCO2 POC ABG pO2 ABG pO2 ABG HCO3 ABG Base Excess ABG Hemoglobin Oxyhemoglobin Sodium Potassium Chloride Carbon Dioxide BUN Creatinine Glucose POC Glucose 154 H 125 H Lactic Acid Calcium Phosphorus Magnesium Direct Bilirubin AST ALT Alkaline Phosphatase Lactate Dehydrogenase Troponin T C-Reactive Protein Total Protein Albumin Prealbumin Triglycerides Cholesterol LDL Cholesterol Direct HDL Cholesterol Urine pH Urine WBC (Auto) Urine Creatinine Urine Total Protein Fluid Total Protein Vancomycin Trough Rheumatoid Factor Complement C4 Miscellaneous Test Crossmatch 11/17/16 11/17/16 11/17/16 03:20 03:20 03:20 WBC RBC 2.55 L Hgb 7.3 L Hct 21.9 L MCV MCH MCHC RDW 16.6 H Plt Count Lymph % (Auto) [place] % (Auto) 11.5 H Lymph # [place] # 1.1 H Baso # Seg Neutrophils % Seg Neuts % (Manual) Lymphocytes % (Manual) Monocytes % (Manual) Eosinophils % (Manual) Basophils % (Manual) Nucleated RBC % Seg Neutrophils # Seg Neutrophils # Man Lymphocytes # (Manual) Monocytes # (Manual) Eosinophils # (Manual) Basophils # (Manual) PT 16.8 H INR 1.37 H Fibrinogen dRVVT Confirm Interp Factor V Activity POC ABG pH POC ABG pCO2 POC ABG pO2 ABG pO2 ABG HCO3 ABG Base Excess ABG Hemoglobin Oxyhemoglobin Sodium Potassium 3.5 L Chloride Carbon Dioxide BUN 21 H Creatinine Glucose POC Glucose Lactic Acid Calcium 7.9 L Phosphorus Magnesium Direct Bilirubin AST ALT Alkaline Phosphatase Lactate Dehydrogenase Troponin T C-Reactive Protein Total Protein Albumin Prealbumin Triglycerides Cholesterol LDL Cholesterol Direct HDL Cholesterol Urine pH Urine WBC (Auto) Urine Creatinine Urine Total Protein Fluid Total Protein Vancomycin Trough Rheumatoid Factor Complement C4 Miscellaneous Test Crossmatch 11/17/16 11/17/16 11/17/16 06:34 11:21 21:22 WBC RBC Hgb Hct MCV MCH MCHC RDW Plt Count Lymph % (Auto) [place] % (Auto) Lymph # [place] # Baso # Seg Neutrophils % Seg Neuts % (Manual) Lymphocytes % (Manual) Monocytes % (Manual) Eosinophils % (Manual) Basophils % (Manual) Nucleated RBC % Seg Neutrophils # Seg Neutrophils # Man Lymphocytes # (Manual) Monocytes # (Manual) Eosinophils # (Manual) Basophils # (Manual) PT INR Fibrinogen dRVVT Confirm Interp Factor V Activity POC ABG pH 7.467 H POC ABG pCO2 POC ABG pO2 73 L ABG pO2 ABG HCO3 ABG Base Excess ABG Hemoglobin Oxyhemoglobin Sodium Potassium Chloride Carbon Dioxide BUN Creatinine Glucose POC Glucose 121 H 119 H Lactic Acid Calcium Phosphorus Magnesium Direct Bilirubin AST ALT Alkaline Phosphatase Lactate Dehydrogenase Troponin T C-Reactive Protein Total Protein Albumin Prealbumin Triglycerides Cholesterol LDL Cholesterol Direct HDL Cholesterol Urine pH Urine WBC (Auto) Urine Creatinine Urine Total Protein Fluid Total Protein Vancomycin Trough Rheumatoid Factor Complement C4 Miscellaneous Test Crossmatch 11/18/16 11/18/16 11/19/16 12:16 17:19 00:00 WBC RBC Hgb Hct MCV MCH MCHC RDW Plt Count Lymph % (Auto) [place] % (Auto) Lymph # [place] # Baso # Seg Neutrophils % Seg Neuts % (Manual) Lymphocytes % (Manual) Monocytes % (Manual) Eosinophils % (Manual) Basophils % (Manual) Nucleated RBC % Seg Neutrophils # Seg Neutrophils # Man Lymphocytes # (Manual) Monocytes # (Manual) Eosinophils # (Manual) Basophils # (Manual) PT INR Fibrinogen dRVVT Confirm Interp Factor V Activity POC ABG pH POC ABG pCO2 POC ABG pO2 ABG pO2 ABG HCO3 ABG Base Excess ABG Hemoglobin Oxyhemoglobin Sodium Potassium Chloride Carbon Dioxide BUN Creatinine Glucose POC Glucose 124 H 162 H 139 H Lactic Acid Calcium Phosphorus Magnesium Direct Bilirubin AST ALT Alkaline Phosphatase Lactate Dehydrogenase Troponin T C-Reactive Protein Total Protein Albumin Prealbumin Triglycerides Cholesterol LDL Cholesterol Direct HDL Cholesterol Urine pH Urine WBC (Auto) Urine Creatinine Urine Total Protein Fluid Total Protein Vancomycin Trough Rheumatoid Factor Complement C4 Miscellaneous Test Crossmatch 11/19/16 11/19/16 11/20/16 05:00 12:43 00:40 WBC RBC Hgb Hct MCV MCH MCHC RDW Plt Count Lymph % (Auto) [place] % (Auto) Lymph # [place] # Baso # Seg Neutrophils % Seg Neuts % (Manual) Lymphocytes % (Manual) Monocytes % (Manual) Eosinophils % (Manual) Basophils % (Manual) Nucleated RBC % Seg Neutrophils # Seg Neutrophils # Man Lymphocytes # (Manual) Monocytes # (Manual) Eosinophils # (Manual) Basophils # (Manual) PT INR Fibrinogen dRVVT Confirm Interp Factor V Activity POC ABG pH POC ABG pCO2 POC ABG pO2 ABG pO2 ABG HCO3 ABG Base Excess ABG Hemoglobin Oxyhemoglobin Sodium Potassium Chloride Carbon Dioxide BUN Creatinine Glucose POC Glucose 110 H 125 H 136 H Lactic Acid Calcium Phosphorus Magnesium Direct Bilirubin AST ALT Alkaline Phosphatase Lactate Dehydrogenase Troponin T C-Reactive Protein Total Protein Albumin Prealbumin Triglycerides Cholesterol LDL Cholesterol Direct HDL Cholesterol Urine pH Urine WBC (Auto) Urine Creatinine Urine Total Protein Fluid Total Protein Vancomycin Trough Rheumatoid Factor Complement C4 Miscellaneous Test Crossmatch 11/20/16 11/20/16 11/20/16 05:00 05:00 05:51 WBC 13.1 H RBC 2.74 L Hgb 7.7 L Hct 23.6 L MCV MCH MCHC RDW 16.9 H Plt Count Lymph % (Auto) [place] % (Auto) 10.8 H Lymph # [place] # 1.4 H Baso # Seg Neutrophils % Seg Neuts % (Manual) Lymphocytes % (Manual) Monocytes % (Manual) Eosinophils % (Manual) Basophils % (Manual) Nucleated RBC % Seg Neutrophils # 7.9 H Seg Neutrophils # Man Lymphocytes # (Manual) Monocytes # (Manual) Eosinophils # (Manual) Basophils # (Manual) PT INR Fibrinogen dRVVT Confirm Interp Factor V Activity POC ABG pH POC ABG pCO2 POC ABG pO2 ABG pO2 ABG HCO3 ABG Base Excess ABG Hemoglobin Oxyhemoglobin Sodium Potassium Chloride Carbon Dioxide BUN 31 H Creatinine 1.8 H Glucose 129 H POC Glucose 133 H Lactic Acid Calcium Phosphorus Magnesium Direct Bilirubin AST ALT Alkaline Phosphatase Lactate Dehydrogenase Troponin T C-Reactive Protein Total Protein Albumin Prealbumin Triglycerides Cholesterol LDL Cholesterol Direct HDL Cholesterol Urine pH Urine WBC (Auto) Urine Creatinine Urine Total Protein Fluid Total Protein Vancomycin Trough Rheumatoid Factor Complement C4 Miscellaneous Test Crossmatch 11/20/16 11/20/16 11/21/16 12:40 18:10 01:20 WBC RBC Hgb Hct MCV MCH MCHC RDW Plt Count Lymph % (Auto) [place] % (Auto) Lymph # [place] # Baso # Seg Neutrophils % Seg Neuts % (Manual) Lymphocytes % (Manual) Monocytes % (Manual) Eosinophils % (Manual) Basophils % (Manual) Nucleated RBC % Seg Neutrophils # Seg Neutrophils # Man Lymphocytes # (Manual) Monocytes # (Manual) Eosinophils # (Manual) Basophils # (Manual) PT INR Fibrinogen dRVVT Confirm Interp Factor V Activity POC ABG pH POC ABG pCO2 POC ABG pO2 ABG pO2 ABG HCO3 ABG Base Excess ABG Hemoglobin Oxyhemoglobin Sodium Potassium Chloride Carbon Dioxide BUN Creatinine Glucose POC Glucose 134 H 138 H 136 H Lactic Acid Calcium Phosphorus Magnesium Direct Bilirubin AST ALT Alkaline Phosphatase Lactate Dehydrogenase Troponin T C-Reactive Protein Total Protein Albumin Prealbumin Triglycerides Cholesterol LDL Cholesterol Direct HDL Cholesterol Urine pH Urine WBC (Auto) Urine Creatinine Urine Total Protein Fluid Total Protein Vancomycin Trough Rheumatoid Factor Complement C4 Miscellaneous Test Crossmatch 11/21/16 11/21/16 11/21/16 07:04 07:45 07:45 WBC 22.0 H RBC 2.91 L Hgb 8.2 L Hct 25.4 L MCV MCH MCHC RDW 17.1 H Plt Count Lymph % (Auto) [place] % (Auto) Lymph # [place] # Baso # Seg Neutrophils % Seg Neuts % (Manual) Lymphocytes % (Manual) 8.0 L Monocytes % (Manual) Eosinophils % (Manual) Basophils % (Manual) Nucleated RBC % Seg Neutrophils # Seg Neutrophils # Man 14.7 H Lymphocytes # (Manual) Monocytes # (Manual) 1.1 H Eosinophils # (Manual) Basophils # (Manual) PT INR Fibrinogen dRVVT Confirm Interp Factor V Activity POC ABG pH POC ABG pCO2 POC ABG pO2 ABG pO2 ABG HCO3 ABG Base Excess ABG Hemoglobin Oxyhemoglobin Sodium Potassium Chloride Carbon Dioxide BUN 42 H Creatinine 2.0 H Glucose POC Glucose 108 H Lactic Acid Calcium Phosphorus Magnesium Direct Bilirubin AST ALT Alkaline Phosphatase Lactate Dehydrogenase Troponin T C-Reactive Protein Total Protein Albumin Prealbumin Triglycerides Cholesterol LDL Cholesterol Direct HDL Cholesterol Urine pH Urine WBC (Auto) Urine Creatinine Urine Total Protein Fluid Total Protein Vancomycin Trough Rheumatoid Factor Complement C4 Miscellaneous Test Crossmatch 11/21/16 11/21/16 11/21/16 08:38 10:09 11:20 WBC RBC Hgb Hct MCV MCH MCHC RDW Plt Count Lymph % (Auto) [place] % (Auto) Lymph # [place] # Baso # Seg Neutrophils % Seg Neuts % (Manual) Lymphocytes % (Manual) Monocytes % (Manual) Eosinophils % (Manual) Basophils % (Manual) Nucleated RBC % Seg Neutrophils # Seg Neutrophils # Man Lymphocytes # (Manual) Monocytes # (Manual) Eosinophils # (Manual) Basophils # (Manual) PT INR Fibrinogen dRVVT Confirm Interp Factor V Activity POC ABG pH 7.346 L POC ABG pCO2 34.4 L POC ABG pO2 314 H ABG pO2 ABG HCO3 ABG Base Excess ABG Hemoglobin Oxyhemoglobin Sodium Potassium Chloride Carbon Dioxide BUN Creatinine Glucose POC Glucose 195 H 153 H Lactic Acid Calcium Phosphorus Magnesium Direct Bilirubin AST ALT Alkaline Phosphatase Lactate Dehydrogenase Troponin T C-Reactive Protein Total Protein Albumin Prealbumin Triglycerides Cholesterol LDL Cholesterol Direct HDL Cholesterol Urine pH Urine WBC (Auto) Urine Creatinine Urine Total Protein Fluid Total Protein Vancomycin Trough Rheumatoid Factor Complement C4 Miscellaneous Test Crossmatch 11/21/16 11/22/16 11/22/16 23:37 04:48 05:00 WBC 29.7 H RBC 2.73 L Hgb 7.5 L Hct 24.2 L MCV MCH 27 L MCHC RDW 17.4 H Plt Count Lymph % (Auto) [place] % (Auto) Lymph # [place] # Baso # Seg Neutrophils % Seg Neuts % (Manual) Lymphocytes % (Manual) 7.0 L Monocytes % (Manual) Eosinophils % (Manual) Basophils % (Manual) Nucleated RBC % Seg Neutrophils # Seg Neutrophils # Man 15.4 H Lymphocytes # (Manual) Monocytes # (Manual) Eosinophils # (Manual) Basophils # (Manual) PT INR Fibrinogen dRVVT Confirm Interp Factor V Activity POC ABG pH POC ABG pCO2 24.6 L POC ABG pO2 189 H ABG pO2 ABG HCO3 ABG Base Excess ABG Hemoglobin Oxyhemoglobin Sodium Potassium Chloride Carbon Dioxide BUN Creatinine Glucose POC Glucose 65 L Lactic Acid Calcium Phosphorus Magnesium Direct Bilirubin AST ALT Alkaline Phosphatase Lactate Dehydrogenase Troponin T C-Reactive Protein Total Protein Albumin Prealbumin Triglycerides Cholesterol LDL Cholesterol Direct HDL Cholesterol Urine pH Urine WBC (Auto) Urine Creatinine Urine Total Protein Fluid Total Protein Vancomycin Trough Rheumatoid Factor Complement C4 Miscellaneous Test Crossmatch 11/22/16 11/23/16 11/23/16 05:00 03:44 04:06 WBC RBC 2.52 L Hgb 7.2 L Hct 21.5 L MCV MCH MCHC RDW 17.1 H Plt Count Lymph % (Auto) [place] % (Auto) 12.4 H Lymph # [place] # 1.4 H Baso # Seg Neutrophils % Seg Neuts % (Manual) Lymphocytes % (Manual) Monocytes % (Manual) Eosinophils % (Manual) Basophils % (Manual) Nucleated RBC % Seg Neutrophils # Seg Neutrophils # Man Lymphocytes # (Manual) Monocytes # (Manual) Eosinophils # (Manual) Basophils # (Manual) PT INR Fibrinogen dRVVT Confirm Interp Factor V Activity POC ABG pH 7.493 H POC ABG pCO2 29.5 L POC ABG pO2 49 L ABG pO2 ABG HCO3 ABG Base Excess ABG Hemoglobin Oxyhemoglobin Sodium 134 L Potassium Chloride 95.9 L Carbon Dioxide 14 L D BUN 51 H Creatinine 2.6 H Glucose POC Glucose Lactic Acid Calcium Phosphorus Magnesium Direct Bilirubin AST ALT Alkaline Phosphatase Lactate Dehydrogenase Troponin T C-Reactive Protein Total Protein Albumin Prealbumin Triglycerides Cholesterol LDL Cholesterol Direct HDL Cholesterol Urine pH Urine WBC (Auto) Urine Creatinine Urine Total Protein Fluid Total Protein Vancomycin Trough Rheumatoid Factor Complement C4 Miscellaneous Test Crossmatch 11/23/16 11/23/16 11/24/16 04:06 11:29 06:39 WBC RBC Hgb Hct MCV MCH MCHC RDW Plt Count Lymph % (Auto) [place] % (Auto) Lymph # [place] # Baso # Seg Neutrophils % Seg Neuts % (Manual) Lymphocytes % (Manual) Monocytes % (Manual) Eosinophils % (Manual) Basophils % (Manual) Nucleated RBC % Seg Neutrophils # Seg Neutrophils # Man Lymphocytes # (Manual) Monocytes # (Manual) Eosinophils # (Manual) Basophils # (Manual) PT INR Fibrinogen dRVVT Confirm Interp Factor V Activity POC ABG pH POC ABG pCO2 POC ABG pO2 ABG pO2 ABG HCO3 ABG Base Excess ABG Hemoglobin Oxyhemoglobin Sodium 136 L Potassium Chloride 95.2 L Carbon Dioxide BUN 60 H Creatinine 2.9 H Glucose POC Glucose 69 L 305 H Lactic Acid Calcium Phosphorus Magnesium 1.60 L Direct Bilirubin AST ALT Alkaline Phosphatase Lactate Dehydrogenase Troponin T C-Reactive Protein Total Protein Albumin Prealbumin Triglycerides Cholesterol LDL Cholesterol Direct HDL Cholesterol Urine pH Urine WBC (Auto) Urine Creatinine Urine Total Protein Fluid Total Protein Vancomycin Trough Rheumatoid Factor Complement C4 Miscellaneous Test Crossmatch 11/24/16 11/24/16 11/24/16 06:43 08:08 08:08 WBC 11.2 H RBC 2.47 L Hgb 6.8 L Hct 20.6 L MCV MCH MCHC RDW 17.0 H Plt Count Lymph % (Auto) [place] % (Auto) 10.3 H Lymph # [place] # 1.2 H Baso # Seg Neutrophils % Seg Neuts % (Manual) Lymphocytes % (Manual) Monocytes % (Manual) Eosinophils % (Manual) Basophils % (Manual) Nucleated RBC % Seg Neutrophils # Seg Neutrophils # Man Lymphocytes # (Manual) Monocytes # (Manual) Eosinophils # (Manual) Basophils # (Manual) PT INR Fibrinogen dRVVT Confirm Interp Factor V Activity POC ABG pH POC ABG pCO2 POC ABG pO2 ABG pO2 ABG HCO3 ABG Base Excess ABG Hemoglobin Oxyhemoglobin Sodium 135 L Potassium Chloride 96.3 L Carbon Dioxide BUN 61 H Creatinine 3.1 H Glucose POC Glucose 62 L Lactic Acid Calcium 8.2 L Phosphorus Magnesium Direct Bilirubin AST ALT Alkaline Phosphatase Lactate Dehydrogenase Troponin T C-Reactive Protein Total Protein Albumin Prealbumin Triglycerides Cholesterol LDL Cholesterol Direct HDL Cholesterol Urine pH Urine WBC (Auto) Urine Creatinine Urine Total Protein Fluid Total Protein Vancomycin Trough Rheumatoid Factor Complement C4 Miscellaneous Test Crossmatch 11/24/16 11/24/16 11/24/16 08:34 11:20 12:41 WBC RBC Hgb Hct MCV MCH MCHC RDW Plt Count Lymph % (Auto) [place] % (Auto) Lymph # [place] # Baso # Seg Neutrophils % Seg Neuts % (Manual) Lymphocytes % (Manual) Monocytes % (Manual) Eosinophils % (Manual) Basophils % (Manual) Nucleated RBC % Seg Neutrophils # Seg Neutrophils # Man Lymphocytes # (Manual) Monocytes # (Manual) Eosinophils # (Manual) Basophils # (Manual) PT INR Fibrinogen dRVVT Confirm Interp Factor V Activity POC ABG pH POC ABG pCO2 POC ABG pO2 ABG pO2 ABG HCO3 ABG Base Excess ABG Hemoglobin Oxyhemoglobin Sodium Potassium Chloride Carbon Dioxide BUN Creatinine Glucose POC Glucose 108 H Lactic Acid Calcium Phosphorus Magnesium 1.60 L Direct Bilirubin AST ALT Alkaline Phosphatase Lactate Dehydrogenase Troponin T C-Reactive Protein Total Protein Albumin Prealbumin Triglycerides Cholesterol LDL Cholesterol Direct HDL Cholesterol Urine pH Urine WBC (Auto) Urine Creatinine Urine Total Protein Fluid Total Protein Vancomycin Trough Rheumatoid Factor Complement C4 Miscellaneous Test Crossmatch See Detail 11/25/16 11/25/16 11/25/16 00:03 04:42 04:42 WBC RBC 3.03 L Hgb 8.6 L Hct 25.3 L MCV MCH MCHC RDW 16.2 H Plt Count Lymph % (Auto) [place] % (Auto) 8.1 H Lymph # [place] # Baso # Seg Neutrophils % 71.3 H Seg Neuts % (Manual) Lymphocytes % (Manual) Monocytes % (Manual) Eosinophils % (Manual) Basophils % (Manual) Nucleated RBC % Seg Neutrophils # Seg Neutrophils # Man Lymphocytes # (Manual) Monocytes # (Manual) Eosinophils # (Manual) Basophils # (Manual) PT INR Fibrinogen dRVVT Confirm Interp Factor V Activity POC ABG pH POC ABG pCO2 POC ABG pO2 ABG pO2 ABG HCO3 ABG Base Excess ABG Hemoglobin Oxyhemoglobin Sodium Potassium Chloride Carbon Dioxide BUN 61 H Creatinine 3.0 H Glucose 102 H POC Glucose 113 H Lactic Acid Calcium 8.2 L Phosphorus Magnesium Direct Bilirubin AST ALT Alkaline Phosphatase 142 H Lactate Dehydrogenase Troponin T C-Reactive Protein Total Protein 5.7 L Albumin 1.5 L Prealbumin Triglycerides Cholesterol LDL Cholesterol Direct HDL Cholesterol Urine pH Urine WBC (Auto) Urine Creatinine Urine Total Protein Fluid Total Protein Vancomycin Trough Rheumatoid Factor Complement C4 Miscellaneous Test Crossmatch 11/25/16 11/25/16 11/25/16 05:12 11:31 14:12 WBC RBC Hgb Hct MCV MCH MCHC RDW Plt Count Lymph % (Auto) [place] % (Auto) Lymph # [place] # Baso # Seg Neutrophils % Seg Neuts % (Manual) Lymphocytes % (Manual) Monocytes % (Manual) Eosinophils % (Manual) Basophils % (Manual) Nucleated RBC % Seg Neutrophils # Seg Neutrophils # Man Lymphocytes # (Manual) Monocytes # (Manual) Eosinophils # (Manual) Basophils # (Manual) PT INR Fibrinogen dRVVT Confirm Interp Factor V Activity POC ABG pH 7.487 H POC ABG pCO2 POC ABG pO2 153 H ABG pO2 ABG HCO3 ABG Base Excess ABG Hemoglobin Oxyhemoglobin Sodium Potassium Chloride Carbon Dioxide BUN Creatinine Glucose POC Glucose 131 H 140 H Lactic Acid Calcium Phosphorus Magnesium Direct Bilirubin AST ALT Alkaline Phosphatase Lactate Dehydrogenase Troponin T C-Reactive Protein Total Protein Albumin Prealbumin Triglycerides Cholesterol LDL Cholesterol Direct HDL Cholesterol Urine pH Urine WBC (Auto) Urine Creatinine Urine Total Protein Fluid Total Protein Vancomycin Trough Rheumatoid Factor Complement C4 Miscellaneous Test Crossmatch 11/25/16 11/26/16 11/26/16 17:23 00:09 05:13 WBC RBC 2.94 L Hgb 8.4 L Hct 24.6 L MCV MCH MCHC RDW 16.4 H Plt Count Lymph % (Auto) [place] % (Auto) 12.3 H Lymph # [place] # 1.1 H Baso # Seg Neutrophils % Seg Neuts % (Manual) Lymphocytes % (Manual) Monocytes % (Manual) Eosinophils % (Manual) Basophils % (Manual) Nucleated RBC % Seg Neutrophils # Seg Neutrophils # Man Lymphocytes # (Manual) Monocytes # (Manual) Eosinophils # (Manual) Basophils # (Manual) PT INR Fibrinogen dRVVT Confirm Interp Factor V Activity POC ABG pH POC ABG pCO2 POC ABG pO2 ABG pO2 ABG HCO3 ABG Base Excess ABG Hemoglobin Oxyhemoglobin Sodium Potassium Chloride Carbon Dioxide BUN Creatinine Glucose POC Glucose 146 H 112 H Lactic Acid Calcium Phosphorus Magnesium Direct Bilirubin AST ALT Alkaline Phosphatase Lactate Dehydrogenase Troponin T C-Reactive Protein Total Protein Albumin Prealbumin Triglycerides Cholesterol LDL Cholesterol Direct HDL Cholesterol Urine pH Urine WBC (Auto) Urine Creatinine Urine Total Protein Fluid Total Protein Vancomycin Trough Rheumatoid Factor Complement C4 Miscellaneous Test Crossmatch 11/26/16 11/26/16 11/26/16 05:13 05:28 11:53 WBC RBC Hgb Hct MCV MCH MCHC RDW Plt Count Lymph % (Auto) [place] % (Auto) Lymph # [place] # Baso # Seg Neutrophils % Seg Neuts % (Manual) Lymphocytes % (Manual) Monocytes % (Manual) Eosinophils % (Manual) Basophils % (Manual) Nucleated RBC % Seg Neutrophils # Seg Neutrophils # Man Lymphocytes # (Manual) Monocytes # (Manual) Eosinophils # (Manual) Basophils # (Manual) PT INR Fibrinogen dRVVT Confirm Interp Factor V Activity POC ABG pH POC ABG pCO2 POC ABG pO2 ABG pO2 ABG HCO3 ABG Base Excess ABG Hemoglobin Oxyhemoglobin Sodium Potassium Chloride 97.8 L Carbon Dioxide BUN 37 H Creatinine 2.0 H Glucose 109 H POC Glucose 117 H 111 H Lactic Acid Calcium 7.9 L Phosphorus 1.80 L D Magnesium Direct Bilirubin AST ALT Alkaline Phosphatase Lactate Dehydrogenase Troponin T C-Reactive Protein Total Protein Albumin Prealbumin Triglycerides Cholesterol LDL Cholesterol Direct HDL Cholesterol Urine pH Urine WBC (Auto) Urine Creatinine Urine Total Protein Fluid Total Protein Vancomycin Trough Rheumatoid Factor Complement C4 Miscellaneous Test Crossmatch 11/26/16 11/27/16 11/27/16 17:14 04:50 06:02 WBC RBC Hgb Hct MCV MCH MCHC RDW Plt Count Lymph % (Auto) [place] % (Auto) Lymph # [place] # Baso # Seg Neutrophils % Seg Neuts % (Manual) Lymphocytes % (Manual) Monocytes % (Manual) Eosinophils % (Manual) Basophils % (Manual) Nucleated RBC % Seg Neutrophils # Seg Neutrophils # Man Lymphocytes # (Manual) Monocytes # (Manual) Eosinophils # (Manual) Basophils # (Manual) PT INR Fibrinogen dRVVT Confirm Interp Factor V Activity POC ABG pH POC ABG pCO2 POC ABG pO2 ABG pO2 75.2 L ABG HCO3 26.4 H ABG Base Excess ABG Hemoglobin 7.6 L Oxyhemoglobin 94.8 L Sodium Potassium Chloride Carbon Dioxide BUN 49 H Creatinine 2.3 H Glucose POC Glucose 115 H Lactic Acid Calcium Phosphorus 1.50 L Magnesium Direct Bilirubin AST ALT Alkaline Phosphatase Lactate Dehydrogenase Troponin T C-Reactive Protein Total Protein Albumin Prealbumin Triglycerides Cholesterol LDL Cholesterol Direct HDL Cholesterol Urine pH Urine WBC (Auto) Urine Creatinine Urine Total Protein Fluid Total Protein Vancomycin Trough Rheumatoid Factor Complement C4 Miscellaneous Test Crossmatch 11/27/16 11/27/16 11/27/16 06:02 11:25 17:25 WBC 11.6 H RBC 2.75 L Hgb 7.6 L Hct 23.4 L MCV MCH MCHC RDW 16.5 H Plt Count Lymph % (Auto) [place] % (Auto) Lymph # [place] # Baso # Seg Neutrophils % Seg Neuts % (Manual) Lymphocytes % (Manual) Monocytes % (Manual) Eosinophils % (Manual) Basophils % (Manual) Nucleated RBC % Seg Neutrophils # Seg Neutrophils # Man Lymphocytes # (Manual) Monocytes # (Manual) Eosinophils # (Manual) Basophils # (Manual) PT INR Fibrinogen dRVVT Confirm Interp Factor V Activity POC ABG pH POC ABG pCO2 POC ABG pO2 ABG pO2 ABG HCO3 ABG Base Excess ABG Hemoglobin Oxyhemoglobin Sodium Potassium Chloride Carbon Dioxide BUN Creatinine Glucose POC Glucose 114 H 126 H Lactic Acid Calcium Phosphorus Magnesium Direct Bilirubin AST ALT Alkaline Phosphatase Lactate Dehydrogenase Troponin T C-Reactive Protein Total Protein Albumin Prealbumin Triglycerides Cholesterol LDL Cholesterol Direct HDL Cholesterol Urine pH Urine WBC (Auto) Urine Creatinine Urine Total Protein Fluid Total Protein Vancomycin Trough Rheumatoid Factor Complement C4 Miscellaneous Test Crossmatch 11/28/16 11/28/16 11/28/16 04:45 05:33 05:44 WBC RBC Hgb Hct MCV MCH MCHC RDW Plt Count Lymph % (Auto) [place] % (Auto) Lymph # [place] # Baso # Seg Neutrophils % Seg Neuts % (Manual) Lymphocytes % (Manual) Monocytes % (Manual) Eosinophils % (Manual) Basophils % (Manual) Nucleated RBC % Seg Neutrophils # Seg Neutrophils # Man Lymphocytes # (Manual) Monocytes # (Manual) Eosinophils # (Manual) Basophils # (Manual) PT INR Fibrinogen dRVVT Confirm Interp Factor V Activity POC ABG pH POC ABG pCO2 POC ABG pO2 ABG pO2 99.3 H ABG HCO3 ABG Base Excess ABG Hemoglobin 8.3 L Oxyhemoglobin Sodium Potassium Chloride Carbon Dioxide BUN 63 H Creatinine 2.4 H Glucose 102 H POC Glucose 108 H Lactic Acid Calcium Phosphorus 1.80 L Magnesium Direct Bilirubin AST ALT Alkaline Phosphatase Lactate Dehydrogenase Troponin T C-Reactive Protein Total Protein Albumin Prealbumin Triglycerides Cholesterol LDL Cholesterol Direct HDL Cholesterol Urine pH Urine WBC (Auto) Urine Creatinine Urine Total Protein Fluid Total Protein Vancomycin Trough Rheumatoid Factor Complement C4 Miscellaneous Test Crossmatch 11/28/16 11/28/16 11/28/16 12:31 16:09 23:46 WBC RBC Hgb Hct MCV MCH MCHC RDW Plt Count Lymph % (Auto) [place] % (Auto) Lymph # [place] # Baso # Seg Neutrophils % Seg Neuts % (Manual) Lymphocytes % (Manual) Monocytes % (Manual) Eosinophils % (Manual) Basophils % (Manual) Nucleated RBC % Seg Neutrophils # Seg Neutrophils # Man Lymphocytes # (Manual) Monocytes # (Manual) Eosinophils # (Manual) Basophils # (Manual) PT INR Fibrinogen dRVVT Confirm Interp Factor V Activity POC ABG pH POC ABG pCO2 POC ABG pO2 ABG pO2 ABG HCO3 ABG Base Excess ABG Hemoglobin Oxyhemoglobin Sodium Potassium Chloride Carbon Dioxide BUN Creatinine Glucose POC Glucose 126 H 111 H 119 H Lactic Acid Calcium Phosphorus Magnesium Direct Bilirubin AST ALT Alkaline Phosphatase Lactate Dehydrogenase Troponin T C-Reactive Protein Total Protein Albumin Prealbumin Triglycerides Cholesterol LDL Cholesterol Direct HDL Cholesterol Urine pH Urine WBC (Auto) Urine Creatinine Urine Total Protein Fluid Total Protein Vancomycin Trough Rheumatoid Factor Complement C4 Miscellaneous Test Crossmatch 11/29/16 11/29/16 11/29/16 03:33 04:52 05:10 WBC RBC Hgb Hct MCV MCH MCHC RDW Plt Count Lymph % (Auto) [place] % (Auto) Lymph # [place] # Baso # Seg Neutrophils % Seg Neuts % (Manual) Lymphocytes % (Manual) Monocytes % (Manual) Eosinophils % (Manual) Basophils % (Manual) Nucleated RBC % Seg Neutrophils # Seg Neutrophils # Man Lymphocytes # (Manual) Monocytes # (Manual) Eosinophils # (Manual) Basophils # (Manual) PT INR Fibrinogen dRVVT Confirm Interp Factor V Activity POC ABG pH POC ABG pCO2 POC ABG pO2 ABG pO2 ABG HCO3 ABG Base Excess ABG Hemoglobin 7.0 L Oxyhemoglobin 94.9 L Sodium Potassium Chloride Carbon Dioxide BUN 73 H Creatinine 2.7 H Glucose POC Glucose 108 H Lactic Acid Calcium Phosphorus Magnesium Direct Bilirubin AST ALT Alkaline Phosphatase Lactate Dehydrogenase Troponin T C-Reactive Protein Total Protein Albumin Prealbumin Triglycerides Cholesterol LDL Cholesterol Direct HDL Cholesterol Urine pH Urine WBC (Auto) Urine Creatinine Urine Total Protein Fluid Total Protein Vancomycin Trough Rheumatoid Factor Complement C4 Miscellaneous Test Crossmatch 11/29/16 11/29/16 11/29/16 12:16 18:05 23:46 WBC RBC Hgb Hct MCV MCH MCHC RDW Plt Count Lymph % (Auto) [place] % (Auto) Lymph # [place] # Baso # Seg Neutrophils % Seg Neuts % (Manual) Lymphocytes % (Manual) Monocytes % (Manual) Eosinophils % (Manual) Basophils % (Manual) Nucleated RBC % Seg Neutrophils # Seg Neutrophils # Man Lymphocytes # (Manual) Monocytes # (Manual) Eosinophils # (Manual) Basophils # (Manual) PT INR Fibrinogen dRVVT Confirm Interp Factor V Activity POC ABG pH POC ABG pCO2 POC ABG pO2 ABG pO2 ABG HCO3 ABG Base Excess ABG Hemoglobin Oxyhemoglobin Sodium Potassium Chloride Carbon Dioxide BUN Creatinine Glucose POC Glucose 133 H 146 H 141 H Lactic Acid Calcium Phosphorus Magnesium Direct Bilirubin AST ALT Alkaline Phosphatase Lactate Dehydrogenase Troponin T C-Reactive Protein Total Protein Albumin Prealbumin Triglycerides Cholesterol LDL Cholesterol Direct HDL Cholesterol Urine pH Urine WBC (Auto) Urine Creatinine Urine Total Protein Fluid Total Protein Vancomycin Trough Rheumatoid Factor Complement C4 Miscellaneous Test Crossmatch 11/30/16 11/30/16 11/30/16 04:17 04:17 04:32 WBC 12.0 H RBC 2.80 L Hgb 7.8 L Hct 23.6 L MCV MCH MCHC RDW 16.6 H Plt Count Lymph % (Auto) [place] % (Auto) 11.3 H Lymph # [place] # 1.4 H Baso # Seg Neutrophils % Seg Neuts % (Manual) Lymphocytes % (Manual) Monocytes % (Manual) Eosinophils % (Manual) Basophils % (Manual) Nucleated RBC % Seg Neutrophils # 8.2 H Seg Neutrophils # Man Lymphocytes # (Manual) Monocytes # (Manual) Eosinophils # (Manual) Basophils # (Manual) PT INR Fibrinogen dRVVT Confirm Interp Factor V Activity POC ABG pH POC ABG pCO2 POC ABG pO2 ABG pO2 ABG HCO3 ABG Base Excess ABG Hemoglobin Oxyhemoglobin Sodium 169 H* D Potassium 5.1 H Chloride 121.5 H Carbon Dioxide BUN 34 H Creatinine 1.3 H D Glucose 133 H POC Glucose 131 H Lactic Acid Calcium 10.3 H Phosphorus Magnesium Direct Bilirubin AST ALT Alkaline Phosphatase Lactate Dehydrogenase Troponin T C-Reactive Protein Total Protein Albumin Prealbumin Triglycerides Cholesterol LDL Cholesterol Direct HDL Cholesterol Urine pH Urine WBC (Auto) Urine Creatinine Urine Total Protein Fluid Total Protein Vancomycin Trough Rheumatoid Factor Complement C4 Miscellaneous Test Crossmatch 11/30/16 11/30/16 11/30/16 05:45 11:10 17:26 WBC RBC Hgb Hct MCV MCH MCHC RDW Plt Count Lymph % (Auto) [place] % (Auto) Lymph # [place] # Baso # Seg Neutrophils % Seg Neuts % (Manual) Lymphocytes % (Manual) Monocytes % (Manual) Eosinophils % (Manual) Basophils % (Manual) Nucleated RBC % Seg Neutrophils # Seg Neutrophils # Man Lymphocytes # (Manual) Monocytes # (Manual) Eosinophils # (Manual) Basophils # (Manual) PT INR Fibrinogen dRVVT Confirm Interp Factor V Activity POC ABG pH POC ABG pCO2 POC ABG pO2 ABG pO2 ABG HCO3 ABG Base Excess ABG Hemoglobin Oxyhemoglobin Sodium Potassium Chloride Carbon Dioxide BUN 45 H Creatinine 1.6 H Glucose 131 H POC Glucose 146 H 134 H Lactic Acid Calcium Phosphorus Magnesium Direct Bilirubin AST ALT Alkaline Phosphatase Lactate Dehydrogenase Troponin T C-Reactive Protein Total Protein Albumin Prealbumin Triglycerides Cholesterol LDL Cholesterol Direct HDL Cholesterol Urine pH Urine WBC (Auto) Urine Creatinine Urine Total Protein Fluid Total Protein Vancomycin Trough Rheumatoid Factor Complement C4 Miscellaneous Test Crossmatch 11/30/16 12/01/16 12/01/16 23:35 00:06 03:35 WBC RBC Hgb Hct MCV MCH MCHC RDW Plt Count Lymph % (Auto) [place] % (Auto) Lymph # [place] # Baso # Seg Neutrophils % Seg Neuts % (Manual) Lymphocytes % (Manual) Monocytes % (Manual) Eosinophils % (Manual) Basophils % (Manual) Nucleated RBC % Seg Neutrophils # Seg Neutrophils # Man Lymphocytes # (Manual) Monocytes # (Manual) Eosinophils # (Manual) Basophils # (Manual) PT INR Fibrinogen dRVVT Confirm Interp Factor V Activity POC ABG pH POC ABG pCO2 POC ABG pO2 ABG pO2 ABG HCO3 ABG Base Excess ABG Hemoglobin 6.9 L Oxyhemoglobin Sodium Potassium Chloride Carbon Dioxide BUN 58 H Creatinine 1.8 H Glucose 146 H POC Glucose 151 H Lactic Acid Calcium Phosphorus Magnesium Direct Bilirubin AST ALT Alkaline Phosphatase Lactate Dehydrogenase Troponin T C-Reactive Protein Total Protein Albumin Prealbumin Triglycerides Cholesterol LDL Cholesterol Direct HDL Cholesterol Urine pH Urine WBC (Auto) Urine Creatinine Urine Total Protein Fluid Total Protein Vancomycin Trough Rheumatoid Factor Complement C4 Miscellaneous Test Crossmatch 12/01/16 12/01/16 12/01/16 03:35 05:47 11:52 WBC 12.3 H RBC 2.82 L Hgb 7.8 L Hct 23.7 L MCV MCH MCHC RDW 16.7 H Plt Count Lymph % (Auto) [place] % (Auto) 9.8 H Lymph # [place] # 1.2 H Baso # Seg Neutrophils % Seg Neuts % (Manual) Lymphocytes % (Manual) Monocytes % (Manual) Eosinophils % (Manual) Basophils % (Manual) Nucleated RBC % Seg Neutrophils # 8.4 H Seg Neutrophils # Man Lymphocytes # (Manual) Monocytes # (Manual) Eosinophils # (Manual) Basophils # (Manual) PT INR Fibrinogen dRVVT Confirm Interp Factor V Activity POC ABG pH POC ABG pCO2 POC ABG pO2 ABG pO2 ABG HCO3 ABG Base Excess ABG Hemoglobin Oxyhemoglobin Sodium Potassium Chloride Carbon Dioxide BUN Creatinine Glucose POC Glucose 152 H 152 H Lactic Acid Calcium Phosphorus Magnesium Direct Bilirubin AST ALT Alkaline Phosphatase Lactate Dehydrogenase Troponin T C-Reactive Protein Total Protein Albumin Prealbumin Triglycerides Cholesterol LDL Cholesterol Direct HDL Cholesterol Urine pH Urine WBC (Auto) Urine Creatinine Urine Total Protein Fluid Total Protein Vancomycin Trough Rheumatoid Factor Complement C4 Miscellaneous Test Crossmatch 12/01/16 12/01/16 12/02/16 17:40 23:41 05:00 WBC RBC Hgb Hct MCV MCH MCHC RDW Plt Count Lymph % (Auto) [place] % (Auto) Lymph # [place] # Baso # Seg Neutrophils % Seg Neuts % (Manual) Lymphocytes % (Manual) Monocytes % (Manual) Eosinophils % (Manual) Basophils % (Manual) Nucleated RBC % Seg Neutrophils # Seg Neutrophils # Man Lymphocytes # (Manual) Monocytes # (Manual) Eosinophils # (Manual) Basophils # (Manual) PT INR Fibrinogen dRVVT Confirm Interp Factor V Activity POC ABG pH POC ABG pCO2 POC ABG pO2 ABG pO2 ABG HCO3 ABG Base Excess ABG Hemoglobin Oxyhemoglobin Sodium Potassium Chloride Carbon Dioxide BUN 45 H Creatinine Glucose 115 H POC Glucose 140 H 144 H Lactic Acid Calcium Phosphorus Magnesium Direct Bilirubin AST ALT Alkaline Phosphatase Lactate Dehydrogenase Troponin T C-Reactive Protein Total Protein Albumin Prealbumin Triglycerides Cholesterol LDL Cholesterol Direct HDL Cholesterol Urine pH Urine WBC (Auto) Urine Creatinine Urine Total Protein Fluid Total Protein Vancomycin Trough Rheumatoid Factor Complement C4 Miscellaneous Test Crossmatch 12/02/16 12/02/16 12/02/16 05:31 11:20 17:38 WBC RBC Hgb Hct MCV MCH MCHC RDW Plt Count Lymph % (Auto) [place] % (Auto) Lymph # [place] # Baso # Seg Neutrophils % Seg Neuts % (Manual) Lymphocytes % (Manual) Monocytes % (Manual) Eosinophils % (Manual) Basophils % (Manual) Nucleated RBC % Seg Neutrophils # Seg Neutrophils # Man Lymphocytes # (Manual) Monocytes # (Manual) Eosinophils # (Manual) Basophils # (Manual) PT INR Fibrinogen dRVVT Confirm Interp Factor V Activity POC ABG pH POC ABG pCO2 POC ABG pO2 ABG pO2 ABG HCO3 ABG Base Excess ABG Hemoglobin Oxyhemoglobin Sodium Potassium Chloride Carbon Dioxide BUN Creatinine Glucose POC Glucose 136 H 177 H 139 H Lactic Acid Calcium Phosphorus Magnesium Direct Bilirubin AST ALT Alkaline Phosphatase Lactate Dehydrogenase Troponin T C-Reactive Protein Total Protein Albumin Prealbumin Triglycerides Cholesterol LDL Cholesterol Direct HDL Cholesterol Urine pH Urine WBC (Auto) Urine Creatinine Urine Total Protein Fluid Total Protein Vancomycin Trough Rheumatoid Factor Complement C4 Miscellaneous Test Crossmatch 12/02/16 12/03/16 12/03/16 23:43 04:00 04:00 WBC 20.4 H RBC 2.74 L Hgb 7.4 L Hct 23.6 L MCV MCH 27 L MCHC RDW 17.1 H Plt Count Lymph % (Auto) [place] % (Auto) Lymph # [place] # Baso # Seg Neutrophils % Seg Neuts % (Manual) 31.0 L Lymphocytes % (Manual) Monocytes % (Manual) Eosinophils % (Manual) Basophils % (Manual) Nucleated RBC % Seg Neutrophils # Seg Neutrophils # Man Lymphocytes # (Manual) Monocytes # (Manual) Eosinophils # (Manual) Basophils # (Manual) PT INR Fibrinogen dRVVT Confirm Interp Factor V Activity POC ABG pH POC ABG pCO2 POC ABG pO2 ABG pO2 ABG HCO3 ABG Base Excess ABG Hemoglobin Oxyhemoglobin Sodium Potassium Chloride Carbon Dioxide BUN 61 H Creatinine 1.6 H Glucose 119 H POC Glucose 158 H Lactic Acid Calcium Phosphorus Magnesium Direct Bilirubin AST ALT Alkaline Phosphatase Lactate Dehydrogenase Troponin T C-Reactive Protein Total Protein Albumin Prealbumin Triglycerides Cholesterol LDL Cholesterol Direct HDL Cholesterol Urine pH Urine WBC (Auto) Urine Creatinine Urine Total Protein Fluid Total Protein Vancomycin Trough Rheumatoid Factor Complement C4 Miscellaneous Test Crossmatch 12/03/16 12/03/16 12/03/16 05:02 12:11 18:16 WBC RBC Hgb Hct MCV MCH MCHC RDW Plt Count Lymph % (Auto) [place] % (Auto) Lymph # [place] # Baso # Seg Neutrophils % Seg Neuts % (Manual) Lymphocytes % (Manual) Monocytes % (Manual) Eosinophils % (Manual) Basophils % (Manual) Nucleated RBC % Seg Neutrophils # Seg Neutrophils # Man Lymphocytes # (Manual) Monocytes # (Manual) Eosinophils # (Manual) Basophils # (Manual) PT INR Fibrinogen dRVVT Confirm Interp Factor V Activity POC ABG pH POC ABG pCO2 POC ABG pO2 ABG pO2 ABG HCO3 ABG Base Excess ABG Hemoglobin Oxyhemoglobin Sodium Potassium Chloride Carbon Dioxide BUN Creatinine Glucose POC Glucose 146 H 157 H 124 H Lactic Acid Calcium Phosphorus Magnesium Direct Bilirubin AST ALT Alkaline Phosphatase Lactate Dehydrogenase Troponin T C-Reactive Protein Total Protein Albumin Prealbumin Triglycerides Cholesterol LDL Cholesterol Direct HDL Cholesterol Urine pH Urine WBC (Auto) Urine Creatinine Urine Total Protein Fluid Total Protein Vancomycin Trough Rheumatoid Factor Complement C4 Miscellaneous Test Crossmatch 12/03/16 12/04/16 12/04/16 23:41 04:00 04:45 WBC RBC Hgb Hct MCV MCH MCHC RDW Plt Count Lymph % (Auto) [place] % (Auto) Lymph # [place] # Baso # Seg Neutrophils % Seg Neuts % (Manual) Lymphocytes % (Manual) Monocytes % (Manual) Eosinophils % (Manual) Basophils % (Manual) Nucleated RBC % Seg Neutrophils # Seg Neutrophils # Man Lymphocytes # (Manual) Monocytes # (Manual) Eosinophils # (Manual) Basophils # (Manual) PT INR Fibrinogen dRVVT Confirm Interp Factor V Activity POC ABG pH POC ABG pCO2 POC ABG pO2 ABG pO2 ABG HCO3 ABG Base Excess ABG Hemoglobin Oxyhemoglobin Sodium Potassium Chloride Carbon Dioxide BUN 76 H Creatinine 1.6 H Glucose POC Glucose 130 H 136 H Lactic Acid Calcium Phosphorus Magnesium Direct Bilirubin AST ALT Alkaline Phosphatase 155 H Lactate Dehydrogenase Troponin T C-Reactive Protein Total Protein 5.5 L Albumin 1.5 L Prealbumin Triglycerides Cholesterol LDL Cholesterol Direct HDL Cholesterol Urine pH Urine WBC (Auto) Urine Creatinine Urine Total Protein Fluid Total Protein Vancomycin Trough Rheumatoid Factor Complement C4 Miscellaneous Test Crossmatch 12/04/16 12/04/16 12/05/16 12:08 17:23 00:10 WBC RBC Hgb Hct MCV MCH MCHC RDW Plt Count Lymph % (Auto) [place] % (Auto) Lymph # [place] # Baso # Seg Neutrophils % Seg Neuts % (Manual) Lymphocytes % (Manual) Monocytes % (Manual) Eosinophils % (Manual) Basophils % (Manual) Nucleated RBC % Seg Neutrophils # Seg Neutrophils # Man Lymphocytes # (Manual) Monocytes # (Manual) Eosinophils # (Manual) Basophils # (Manual) PT INR Fibrinogen dRVVT Confirm Interp Factor V Activity POC ABG pH POC ABG pCO2 POC ABG pO2 ABG pO2 ABG HCO3 ABG Base Excess ABG Hemoglobin Oxyhemoglobin Sodium Potassium Chloride Carbon Dioxide BUN Creatinine Glucose POC Glucose 114 H 129 H 124 H Lactic Acid Calcium Phosphorus Magnesium Direct Bilirubin AST ALT Alkaline Phosphatase Lactate Dehydrogenase Troponin T C-Reactive Protein Total Protein Albumin Prealbumin Triglycerides Cholesterol LDL Cholesterol Direct HDL Cholesterol Urine pH Urine WBC (Auto) Urine Creatinine Urine Total Protein Fluid Total Protein Vancomycin Trough Rheumatoid Factor Complement C4 Miscellaneous Test Crossmatch 12/05/16 12/05/16 12/05/16 05:00 05:00 05:18 WBC RBC Hgb Hct MCV MCH MCHC RDW Plt Count Lymph % (Auto) [place] % (Auto) Lymph # [place] # Baso # Seg Neutrophils % Seg Neuts % (Manual) Lymphocytes % (Manual) Monocytes % (Manual) Eosinophils % (Manual) Basophils % (Manual) Nucleated RBC % Seg Neutrophils # Seg Neutrophils # Man Lymphocytes # (Manual) Monocytes # (Manual) Eosinophils # (Manual) Basophils # (Manual) PT INR Fibrinogen dRVVT Confirm Interp Factor V Activity POC ABG pH POC ABG pCO2 POC ABG pO2 ABG pO2 ABG HCO3 ABG Base Excess ABG Hemoglobin Oxyhemoglobin Sodium Potassium Chloride Carbon Dioxide 21 L BUN 85 H Creatinine 1.9 H Glucose 131 H POC Glucose 154 H Lactic Acid Calcium Phosphorus Magnesium Direct Bilirubin AST ALT Alkaline Phosphatase Lactate Dehydrogenase Troponin T C-Reactive Protein 19.30 H Total Protein Albumin Prealbumin Triglycerides Cholesterol LDL Cholesterol Direct HDL Cholesterol Urine pH Urine WBC (Auto) Urine Creatinine Urine Total Protein Fluid Total Protein Vancomycin Trough Rheumatoid Factor Complement C4 Miscellaneous Test Crossmatch 12/05/16 12/05/16 12/05/16 11:43 17:46 23:25 WBC RBC Hgb Hct MCV MCH MCHC RDW Plt Count Lymph % (Auto) [place] % (Auto) Lymph # [place] # Baso # Seg Neutrophils % Seg Neuts % (Manual) Lymphocytes % (Manual) Monocytes % (Manual) Eosinophils % (Manual) Basophils % (Manual) Nucleated RBC % Seg Neutrophils # Seg Neutrophils # Man Lymphocytes # (Manual) Monocytes # (Manual) Eosinophils # (Manual) Basophils # (Manual) PT INR Fibrinogen dRVVT Confirm Interp Factor V Activity POC ABG pH POC ABG pCO2 POC ABG pO2 ABG pO2 ABG HCO3 ABG Base Excess ABG Hemoglobin Oxyhemoglobin Sodium Potassium Chloride Carbon Dioxide BUN Creatinine Glucose POC Glucose 117 H 113 H 111 H Lactic Acid Calcium Phosphorus Magnesium Direct Bilirubin AST ALT Alkaline Phosphatase Lactate Dehydrogenase Troponin T C-Reactive Protein Total Protein Albumin Prealbumin Triglycerides Cholesterol LDL Cholesterol Direct HDL Cholesterol Urine pH Urine WBC (Auto) Urine Creatinine Urine Total Protein Fluid Total Protein Vancomycin Trough Rheumatoid Factor Complement C4 Miscellaneous Test Crossmatch 12/05/16 12/06/16 12/06/16 Unknown 04:58 06:00 WBC RBC Hgb Hct MCV MCH MCHC RDW Plt Count Lymph % (Auto) [place] % (Auto) Lymph # [place] # Baso # Seg Neutrophils % Seg Neuts % (Manual) Lymphocytes % (Manual) Monocytes % (Manual) Eosinophils % (Manual) Basophils % (Manual) Nucleated RBC % Seg Neutrophils # Seg Neutrophils # Man Lymphocytes # (Manual) Monocytes # (Manual) Eosinophils # (Manual) Basophils # (Manual) PT INR Fibrinogen dRVVT Confirm Interp Factor V Activity POC ABG pH POC ABG pCO2 POC ABG pO2 ABG pO2 75.2 L ABG HCO3 ABG Base Excess -3.4 L ABG Hemoglobin 7.4 L Oxyhemoglobin 94.5 L Sodium Potassium Chloride Carbon Dioxide 20 L BUN 99 H Creatinine 2.1 H Glucose 126 H POC Glucose 145 H Lactic Acid Calcium Phosphorus 4.80 H Magnesium Direct Bilirubin AST ALT Alkaline Phosphatase Lactate Dehydrogenase Troponin T C-Reactive Protein Total Protein Albumin Prealbumin Triglycerides Cholesterol LDL Cholesterol Direct HDL Cholesterol Urine pH Urine WBC (Auto) Urine Creatinine Urine Total Protein Fluid Total Protein Vancomycin Trough Rheumatoid Factor Complement C4 Miscellaneous Test Crossmatch 12/06/16 12/06/16 12/06/16 06:46 11:54 17:55 WBC RBC Hgb 8.3 L Hct 26.4 L MCV MCH MCHC RDW Plt Count Lymph % (Auto) [place] % (Auto) Lymph # [place] # Baso # Seg Neutrophils % Seg Neuts % (Manual) Lymphocytes % (Manual) Monocytes % (Manual) Eosinophils % (Manual) Basophils % (Manual) Nucleated RBC % Seg Neutrophils # Seg Neutrophils # Man Lymphocytes # (Manual) Monocytes # (Manual) Eosinophils # (Manual) Basophils # (Manual) PT INR Fibrinogen dRVVT Confirm Interp Factor V Activity POC ABG pH POC ABG pCO2 POC ABG pO2 ABG pO2 ABG HCO3 ABG Base Excess ABG Hemoglobin Oxyhemoglobin Sodium Potassium Chloride Carbon Dioxide BUN Creatinine Glucose POC Glucose 126 H 157 H Lactic Acid Calcium Phosphorus Magnesium Direct Bilirubin AST ALT Alkaline Phosphatase Lactate Dehydrogenase Troponin T C-Reactive Protein Total Protein Albumin Prealbumin Triglycerides Cholesterol LDL Cholesterol Direct HDL Cholesterol Urine pH Urine WBC (Auto) Urine Creatinine Urine Total Protein Fluid Total Protein Vancomycin Trough Rheumatoid Factor Complement C4 Miscellaneous Test Crossmatch 12/06/16 12/07/16 12/07/16 23:59 05:34 06:30 WBC RBC Hgb Hct MCV MCH MCHC RDW Plt Count Lymph % (Auto) [place] % (Auto) Lymph # [place] # Baso # Seg Neutrophils % Seg Neuts % (Manual) Lymphocytes % (Manual) Monocytes % (Manual) Eosinophils % (Manual) Basophils % (Manual) Nucleated RBC % Seg Neutrophils # Seg Neutrophils # Man Lymphocytes # (Manual) Monocytes # (Manual) Eosinophils # (Manual) Basophils # (Manual) PT INR Fibrinogen dRVVT Confirm Interp Factor V Activity POC ABG pH POC ABG pCO2 POC ABG pO2 ABG pO2 ABG HCO3 ABG Base Excess ABG Hemoglobin Oxyhemoglobin Sodium Potassium Chloride Carbon Dioxide BUN 67 H Creatinine 1.4 H Glucose 126 H POC Glucose 129 H 129 H Lactic Acid Calcium Phosphorus Magnesium Direct Bilirubin AST ALT Alkaline Phosphatase Lactate Dehydrogenase Troponin T C-Reactive Protein Total Protein Albumin Prealbumin Triglycerides Cholesterol LDL Cholesterol Direct HDL Cholesterol Urine pH Urine WBC (Auto) Urine Creatinine Urine Total Protein Fluid Total Protein Vancomycin Trough Rheumatoid Factor Complement C4 Miscellaneous Test Crossmatch 12/07/16 12/07/16 12/07/16 06:30 08:00 09:45 WBC 18.8 H RBC 2.52 L Hgb 6.9 L 6.8 L Hct 21.2 L 21.1 L MCV MCH 27 L MCHC RDW 18.0 H Plt Count Lymph % (Auto) [place] % (Auto) 9.9 H Lymph # [place] # 1.9 H Baso # Seg Neutrophils % 71.8 H Seg Neuts % (Manual) Lymphocytes % (Manual) Monocytes % (Manual) Eosinophils % (Manual) Basophils % (Manual) Nucleated RBC % Seg Neutrophils # 13.5 H Seg Neutrophils # Man Lymphocytes # (Manual) Monocytes # (Manual) Eosinophils # (Manual) Basophils # (Manual) PT INR Fibrinogen dRVVT Confirm Interp Factor V Activity POC ABG pH POC ABG pCO2 POC ABG pO2 ABG pO2 ABG HCO3 ABG Base Excess ABG Hemoglobin Oxyhemoglobin Sodium Potassium Chloride Carbon Dioxide BUN Creatinine Glucose POC Glucose Lactic Acid Calcium Phosphorus Magnesium Direct Bilirubin AST ALT Alkaline Phosphatase Lactate Dehydrogenase Troponin T C-Reactive Protein Total Protein Albumin Prealbumin Triglycerides Cholesterol LDL Cholesterol Direct HDL Cholesterol Urine pH Urine WBC (Auto) Urine Creatinine Urine Total Protein Fluid Total Protein Vancomycin Trough Rheumatoid Factor Complement C4 Miscellaneous Test Crossmatch See Detail 12/07/16 12/07/16 12/07/16 11:44 18:19 23:59 WBC RBC Hgb Hct MCV MCH MCHC RDW Plt Count Lymph % (Auto) [place] % (Auto) Lymph # [place] # Baso # Seg Neutrophils % Seg Neuts % (Manual) Lymphocytes % (Manual) Monocytes % (Manual) Eosinophils % (Manual) Basophils % (Manual) Nucleated RBC % Seg Neutrophils # Seg Neutrophils # Man Lymphocytes # (Manual) Monocytes # (Manual) Eosinophils # (Manual) Basophils # (Manual) PT INR Fibrinogen dRVVT Confirm Interp Factor V Activity POC ABG pH POC ABG pCO2 POC ABG pO2 ABG pO2 ABG HCO3 ABG Base Excess ABG Hemoglobin Oxyhemoglobin Sodium Potassium Chloride Carbon Dioxide BUN Creatinine Glucose POC Glucose 137 H 138 H 133 H Lactic Acid Calcium Phosphorus Magnesium Direct Bilirubin AST ALT Alkaline Phosphatase Lactate Dehydrogenase Troponin T C-Reactive Protein Total Protein Albumin Prealbumin Triglycerides Cholesterol LDL Cholesterol Direct HDL Cholesterol Urine pH Urine WBC (Auto) Urine Creatinine Urine Total Protein Fluid Total Protein Vancomycin Trough Rheumatoid Factor Complement C4 Miscellaneous Test Crossmatch 12/08/16 12/08/16 12/08/16 05:25 05:30 05:30 WBC 23.8 H RBC 2.88 L Hgb 8.1 L Hct 24.3 L MCV MCH MCHC RDW 16.7 H Plt Count Lymph % (Auto) [place] % (Auto) Lymph # [place] # Baso # Seg Neutrophils % Seg Neuts % (Manual) 76.0 H Lymphocytes % (Manual) 9.0 L Monocytes % (Manual) 9.0 H Eosinophils % (Manual) Basophils % (Manual) Nucleated RBC % Seg Neutrophils # Seg Neutrophils # Man 18.1 H Lymphocytes # (Manual) Monocytes # (Manual) 2.1 H Eosinophils # (Manual) Basophils # (Manual) PT INR Fibrinogen dRVVT Confirm Interp Factor V Activity POC ABG pH POC ABG pCO2 POC ABG pO2 ABG pO2 ABG HCO3 ABG Base Excess ABG Hemoglobin Oxyhemoglobin Sodium Potassium Chloride Carbon Dioxide 21 L BUN 76 H Creatinine 1.6 H Glucose 133 H POC Glucose 177 H Lactic Acid Calcium Phosphorus Magnesium Direct Bilirubin AST ALT Alkaline Phosphatase Lactate Dehydrogenase Troponin T C-Reactive Protein Total Protein Albumin Prealbumin Triglycerides Cholesterol LDL Cholesterol Direct HDL Cholesterol Urine pH Urine WBC (Auto) Urine Creatinine Urine Total Protein Fluid Total Protein Vancomycin Trough Rheumatoid Factor Complement C4 Miscellaneous Test Crossmatch 12/08/16 12/08/16 12/09/16 11:45 18:00 00:00 WBC RBC Hgb Hct MCV MCH MCHC RDW Plt Count Lymph % (Auto) [place] % (Auto) Lymph # [place] # Baso # Seg Neutrophils % Seg Neuts % (Manual) Lymphocytes % (Manual) Monocytes % (Manual) Eosinophils % (Manual) Basophils % (Manual) Nucleated RBC % Seg Neutrophils # Seg Neutrophils # Man Lymphocytes # (Manual) Monocytes # (Manual) Eosinophils # (Manual) Basophils # (Manual) PT INR Fibrinogen dRVVT Confirm Interp Factor V Activity POC ABG pH POC ABG pCO2 POC ABG pO2 ABG pO2 ABG HCO3 ABG Base Excess ABG Hemoglobin Oxyhemoglobin Sodium Potassium Chloride Carbon Dioxide BUN Creatinine Glucose POC Glucose 163 H 123 H 137 H Lactic Acid Calcium Phosphorus Magnesium Direct Bilirubin AST ALT Alkaline Phosphatase Lactate Dehydrogenase Troponin T C-Reactive Protein Total Protein Albumin Prealbumin Triglycerides Cholesterol LDL Cholesterol Direct HDL Cholesterol Urine pH Urine WBC (Auto) Urine Creatinine Urine Total Protein Fluid Total Protein Vancomycin Trough Rheumatoid Factor Complement C4 Miscellaneous Test Crossmatch 12/09/16 12/09/16 12/09/16 05:34 06:00 06:00 WBC 15.5 H RBC 2.87 L Hgb 8.0 L Hct 24.2 L MCV MCH MCHC RDW 17.2 H Plt Count Lymph % (Auto) [place] % (Auto) 11.6 H Lymph # [place] # 1.8 H Baso # Seg Neutrophils % 70.8 H Seg Neuts % (Manual) Lymphocytes % (Manual) Monocytes % (Manual) Eosinophils % (Manual) Basophils % (Manual) Nucleated RBC % Seg Neutrophils # 11.0 H Seg Neutrophils # Man Lymphocytes # (Manual) Monocytes # (Manual) Eosinophils # (Manual) Basophils # (Manual) PT INR Fibrinogen dRVVT Confirm Interp Factor V Activity POC ABG pH POC ABG pCO2 POC ABG pO2 ABG pO2 ABG HCO3 ABG Base Excess ABG Hemoglobin Oxyhemoglobin Sodium Potassium Chloride Carbon Dioxide BUN 51 H Creatinine Glucose 117 H POC Glucose 136 H Lactic Acid Calcium Phosphorus Magnesium Direct Bilirubin AST ALT Alkaline Phosphatase Lactate Dehydrogenase Troponin T C-Reactive Protein Total Protein Albumin Prealbumin Triglycerides Cholesterol LDL Cholesterol Direct HDL Cholesterol Urine pH Urine WBC (Auto) Urine Creatinine Urine Total Protein Fluid Total Protein Vancomycin Trough Rheumatoid Factor Complement C4 Miscellaneous Test Crossmatch 12/09/16 12/09/16 12/09/16 12:29 17:52 23:10 WBC RBC Hgb Hct MCV MCH MCHC RDW Plt Count Lymph % (Auto) [place] % (Auto) Lymph # [place] # Baso # Seg Neutrophils % Seg Neuts % (Manual) Lymphocytes % (Manual) Monocytes % (Manual) Eosinophils % (Manual) Basophils % (Manual) Nucleated RBC % Seg Neutrophils # Seg Neutrophils # Man Lymphocytes # (Manual) Monocytes # (Manual) Eosinophils # (Manual) Basophils # (Manual) PT INR Fibrinogen dRVVT Confirm Interp Factor V Activity POC ABG pH POC ABG pCO2 POC ABG pO2 ABG pO2 ABG HCO3 ABG Base Excess ABG Hemoglobin Oxyhemoglobin Sodium Potassium Chloride Carbon Dioxide BUN Creatinine Glucose POC Glucose 139 H 140 H 129 H Lactic Acid Calcium Phosphorus Magnesium Direct Bilirubin AST ALT Alkaline Phosphatase Lactate Dehydrogenase Troponin T C-Reactive Protein Total Protein Albumin Prealbumin Triglycerides Cholesterol LDL Cholesterol Direct HDL Cholesterol Urine pH Urine WBC (Auto) Urine Creatinine Urine Total Protein Fluid Total Protein Vancomycin Trough Rheumatoid Factor Complement C4 Miscellaneous Test Crossmatch 12/10/16 12/10/16 12/10/16 05:00 05:00 06:54 WBC 15.7 H RBC 2.87 L Hgb 8.2 L Hct 24.4 L MCV MCH MCHC RDW 17.2 H Plt Count Lymph % (Auto) [place] % (Auto) 8.3 H Lymph # [place] # 1.3 H Baso # Seg Neutrophils % 72.8 H Seg Neuts % (Manual) Lymphocytes % (Manual) Monocytes % (Manual) Eosinophils % (Manual) Basophils % (Manual) Nucleated RBC % Seg Neutrophils # 11.4 H Seg Neutrophils # Man Lymphocytes # (Manual) Monocytes # (Manual) Eosinophils # (Manual) Basophils # (Manual) PT INR Fibrinogen dRVVT Confirm Interp Factor V Activity POC ABG pH POC ABG pCO2 POC ABG pO2 ABG pO2 ABG HCO3 ABG Base Excess ABG Hemoglobin Oxyhemoglobin Sodium Potassium Chloride Carbon Dioxide BUN 64 H Creatinine 1.4 H Glucose 134 H POC Glucose 154 H Lactic Acid Calcium Phosphorus Magnesium Direct Bilirubin AST ALT Alkaline Phosphatase Lactate Dehydrogenase Troponin T C-Reactive Protein Total Protein Albumin Prealbumin Triglycerides Cholesterol LDL Cholesterol Direct HDL Cholesterol Urine pH Urine WBC (Auto) Urine Creatinine Urine Total Protein Fluid Total Protein Vancomycin Trough Rheumatoid Factor Complement C4 Miscellaneous Test Crossmatch 12/10/16 12/10/16 12/10/16 11:58 17:29 23:52 WBC RBC Hgb Hct MCV MCH MCHC RDW Plt Count Lymph % (Auto) [place] % (Auto) Lymph # [place] # Baso # Seg Neutrophils % Seg Neuts % (Manual) Lymphocytes % (Manual) Monocytes % (Manual) Eosinophils % (Manual) Basophils % (Manual) Nucleated RBC % Seg Neutrophils # Seg Neutrophils # Man Lymphocytes # (Manual) Monocytes # (Manual) Eosinophils # (Manual) Basophils # (Manual) PT INR Fibrinogen dRVVT Confirm Interp Factor V Activity POC ABG pH POC ABG pCO2 POC ABG pO2 ABG pO2 ABG HCO3 ABG Base Excess ABG Hemoglobin Oxyhemoglobin Sodium Potassium Chloride Carbon Dioxide BUN Creatinine Glucose POC Glucose 144 H 163 H 125 H Lactic Acid Calcium Phosphorus Magnesium Direct Bilirubin AST ALT Alkaline Phosphatase Lactate Dehydrogenase Troponin T C-Reactive Protein Total Protein Albumin Prealbumin Triglycerides Cholesterol LDL Cholesterol Direct HDL Cholesterol Urine pH Urine WBC (Auto) Urine Creatinine Urine Total Protein Fluid Total Protein Vancomycin Trough Rheumatoid Factor Complement C4 Miscellaneous Test Crossmatch 12/11/16 12/11/16 12/11/16 05:38 06:30 06:30 WBC 14.4 H RBC 2.76 L Hgb 7.7 L Hct 23.4 L MCV MCH MCHC RDW 17.2 H Plt Count Lymph % (Auto) [place] % (Auto) 8.8 H Lymph # [place] # 1.3 H Baso # Seg Neutrophils % 72.5 H Seg Neuts % (Manual) Lymphocytes % (Manual) Monocytes % (Manual) Eosinophils % (Manual) Basophils % (Manual) Nucleated RBC % Seg Neutrophils # 10.5 H Seg Neutrophils # Man Lymphocytes # (Manual) Monocytes # (Manual) Eosinophils # (Manual) Basophils # (Manual) PT INR Fibrinogen dRVVT Confirm Interp Factor V Activity POC ABG pH POC ABG pCO2 POC ABG pO2 ABG pO2 ABG HCO3 ABG Base Excess ABG Hemoglobin Oxyhemoglobin Sodium Potassium Chloride Carbon Dioxide BUN 43 H Creatinine Glucose 124 H POC Glucose 141 H Lactic Acid Calcium 8.3 L Phosphorus Magnesium 1.60 L Direct Bilirubin AST ALT Alkaline Phosphatase Lactate Dehydrogenase Troponin T C-Reactive Protein Total Protein Albumin Prealbumin Triglycerides Cholesterol LDL Cholesterol Direct HDL Cholesterol Urine pH Urine WBC (Auto) Urine Creatinine Urine Total Protein Fluid Total Protein Vancomycin Trough Rheumatoid Factor Complement C4 Miscellaneous Test Crossmatch 12/11/16 12/11/16 12/11/16 11:15 17:59 23:48 WBC RBC Hgb Hct MCV MCH MCHC RDW Plt Count Lymph % (Auto) [place] % (Auto) Lymph # [place] # Baso # Seg Neutrophils % Seg Neuts % (Manual) Lymphocytes % (Manual) Monocytes % (Manual) Eosinophils % (Manual) Basophils % (Manual) Nucleated RBC % Seg Neutrophils # Seg Neutrophils # Man Lymphocytes # (Manual) Monocytes # (Manual) Eosinophils # (Manual) Basophils # (Manual) PT INR Fibrinogen dRVVT Confirm Interp Factor V Activity POC ABG pH POC ABG pCO2 POC ABG pO2 ABG pO2 ABG HCO3 ABG Base Excess ABG Hemoglobin Oxyhemoglobin Sodium Potassium Chloride Carbon Dioxide BUN Creatinine Glucose POC Glucose 188 H 106 H 119 H Lactic Acid Calcium Phosphorus Magnesium Direct Bilirubin AST ALT Alkaline Phosphatase Lactate Dehydrogenase Troponin T C-Reactive Protein Total Protein Albumin Prealbumin Triglycerides Cholesterol LDL Cholesterol Direct HDL Cholesterol Urine pH Urine WBC (Auto) Urine Creatinine Urine Total Protein Fluid Total Protein Vancomycin Trough Rheumatoid Factor Complement C4 Miscellaneous Test Crossmatch 12/12/16 12/12/16 12/12/16 05:00 06:01 12:20 WBC 16.7 H RBC 2.87 L Hgb 8.0 L Hct 24.2 L MCV MCH MCHC RDW 17.6 H Plt Count Lymph % (Auto) [place] % (Auto) Lymph # [place] # 1.2 H Baso # Seg Neutrophils % 75.3 H Seg Neuts % (Manual) Lymphocytes % (Manual) Monocytes % (Manual) Eosinophils % (Manual) Basophils % (Manual) Nucleated RBC % Seg Neutrophils # 12.6 H Seg Neutrophils # Man Lymphocytes # (Manual) Monocytes # (Manual) Eosinophils # (Manual) Basophils # (Manual) PT INR Fibrinogen dRVVT Confirm Interp Factor V Activity POC ABG pH POC ABG pCO2 POC ABG pO2 ABG pO2 ABG HCO3 ABG Base Excess ABG Hemoglobin Oxyhemoglobin Sodium Potassium Chloride Carbon Dioxide BUN Creatinine Glucose POC Glucose 134 H 149 H Lactic Acid Calcium Phosphorus Magnesium Direct Bilirubin AST ALT Alkaline Phosphatase Lactate Dehydrogenase Troponin T C-Reactive Protein Total Protein Albumin Prealbumin Triglycerides Cholesterol LDL Cholesterol Direct HDL Cholesterol Urine pH Urine WBC (Auto) Urine Creatinine Urine Total Protein Fluid Total Protein Vancomycin Trough Rheumatoid Factor Complement C4 Miscellaneous Test Crossmatch 12/12/16 12/12/16 12/12/16 17:38 23:01 Unknown WBC RBC Hgb Hct MCV MCH MCHC RDW Plt Count Lymph % (Auto) [place] % (Auto) Lymph # [place] # Baso # Seg Neutrophils % Seg Neuts % (Manual) Lymphocytes % (Manual) Monocytes % (Manual) Eosinophils % (Manual) Basophils % (Manual) Nucleated RBC % Seg Neutrophils # Seg Neutrophils # Man Lymphocytes # (Manual) Monocytes # (Manual) Eosinophils # (Manual) Basophils # (Manual) PT INR Fibrinogen dRVVT Confirm Interp Factor V Activity POC ABG pH POC ABG pCO2 POC ABG pO2 ABG pO2 ABG HCO3 ABG Base Excess ABG Hemoglobin Oxyhemoglobin Sodium Potassium Chloride Carbon Dioxide BUN 60 H Creatinine 1.3 H Glucose 126 H POC Glucose 127 H 144 H Lactic Acid Calcium Phosphorus Magnesium Direct Bilirubin AST ALT Alkaline Phosphatase Lactate Dehydrogenase Troponin T C-Reactive Protein Total Protein Albumin Prealbumin Triglycerides Cholesterol LDL Cholesterol Direct HDL Cholesterol Urine pH Urine WBC (Auto) Urine Creatinine Urine Total Protein Fluid Total Protein Vancomycin Trough Rheumatoid Factor Complement C4 Miscellaneous Test Crossmatch 12/13/16 12/13/16 12/13/16 04:00 04:00 05:19 WBC 18.7 H RBC 2.89 L Hgb 8.3 L Hct 24.6 L MCV MCH MCHC RDW 17.5 H Plt Count Lymph % (Auto) [place] % (Auto) Lymph # [place] # 1.3 H Baso # Seg Neutrophils % 71.5 H Seg Neuts % (Manual) Lymphocytes % (Manual) Monocytes % (Manual) Eosinophils % (Manual) Basophils % (Manual) Nucleated RBC % Seg Neutrophils # 13.4 H Seg Neutrophils # Man Lymphocytes # (Manual) Monocytes # (Manual) Eosinophils # (Manual) Basophils # (Manual) PT INR Fibrinogen dRVVT Confirm Interp Factor V Activity POC ABG pH POC ABG pCO2 POC ABG pO2 ABG pO2 ABG HCO3 ABG Base Excess ABG Hemoglobin Oxyhemoglobin Sodium Potassium Chloride Carbon Dioxide BUN 73 H Creatinine 1.5 H Glucose 141 H POC Glucose 171 H Lactic Acid Calcium Phosphorus Magnesium Direct Bilirubin AST ALT Alkaline Phosphatase Lactate Dehydrogenase Troponin T C-Reactive Protein Total Protein Albumin Prealbumin Triglycerides Cholesterol LDL Cholesterol Direct HDL Cholesterol Urine pH Urine WBC (Auto) Urine Creatinine Urine Total Protein Fluid Total Protein Vancomycin Trough Rheumatoid Factor Complement C4 Miscellaneous Test Crossmatch 12/13/16 12/13/16 12/14/16 12:28 16:48 00:01 WBC RBC Hgb Hct MCV MCH MCHC RDW Plt Count Lymph % (Auto) [place] % (Auto) Lymph # [place] # Baso # Seg Neutrophils % Seg Neuts % (Manual) Lymphocytes % (Manual) Monocytes % (Manual) Eosinophils % (Manual) Basophils % (Manual) Nucleated RBC % Seg Neutrophils # Seg Neutrophils # Man Lymphocytes # (Manual) Monocytes # (Manual) Eosinophils # (Manual) Basophils # (Manual) PT INR Fibrinogen dRVVT Confirm Interp Factor V Activity POC ABG pH POC ABG pCO2 POC ABG pO2 ABG pO2 ABG HCO3 ABG Base Excess ABG Hemoglobin Oxyhemoglobin Sodium Potassium Chloride Carbon Dioxide BUN Creatinine Glucose POC Glucose 206 H 173 H 139 H Lactic Acid Calcium Phosphorus Magnesium Direct Bilirubin AST ALT Alkaline Phosphatase Lactate Dehydrogenase Troponin T C-Reactive Protein Total Protein Albumin Prealbumin Triglycerides Cholesterol LDL Cholesterol Direct HDL Cholesterol Urine pH Urine WBC (Auto) Urine Creatinine Urine Total Protein Fluid Total Protein Vancomycin Trough Rheumatoid Factor Complement C4 Miscellaneous Test Crossmatch 12/14/16 12/14/16 12/14/16 05:16 06:10 11:17 WBC RBC Hgb Hct MCV MCH MCHC RDW Plt Count Lymph % (Auto) [place] % (Auto) Lymph # [place] # Baso # Seg Neutrophils % Seg Neuts % (Manual) Lymphocytes % (Manual) Monocytes % (Manual) Eosinophils % (Manual) Basophils % (Manual) Nucleated RBC % Seg Neutrophils # Seg Neutrophils # Man Lymphocytes # (Manual) Monocytes # (Manual) Eosinophils # (Manual) Basophils # (Manual) PT INR Fibrinogen dRVVT Confirm Interp Factor V Activity POC ABG pH POC ABG pCO2 POC ABG pO2 ABG pO2 ABG HCO3 ABG Base Excess ABG Hemoglobin Oxyhemoglobin Sodium Potassium Chloride Carbon Dioxide BUN 57 H Creatinine 1.4 H Glucose 135 H POC Glucose 158 H 137 H Lactic Acid Calcium Phosphorus Magnesium Direct Bilirubin AST ALT Alkaline Phosphatase Lactate Dehydrogenase Troponin T C-Reactive Protein Total Protein Albumin Prealbumin Triglycerides Cholesterol LDL Cholesterol Direct HDL Cholesterol Urine pH Urine WBC (Auto) Urine Creatinine Urine Total Protein Fluid Total Protein Vancomycin Trough Rheumatoid Factor Complement C4 Miscellaneous Test Crossmatch 12/14/16 12/14/16 12/15/16 17:52 23:27 04:00 WBC RBC Hgb Hct MCV MCH MCHC RDW Plt Count Lymph % (Auto) [place] % (Auto) Lymph # [place] # Baso # Seg Neutrophils % Seg Neuts % (Manual) Lymphocytes % (Manual) Monocytes % (Manual) Eosinophils % (Manual) Basophils % (Manual) Nucleated RBC % Seg Neutrophils # Seg Neutrophils # Man Lymphocytes # (Manual) Monocytes # (Manual) Eosinophils # (Manual) Basophils # (Manual) PT INR Fibrinogen dRVVT Confirm Interp Factor V Activity POC ABG pH POC ABG pCO2 POC ABG pO2 ABG pO2 ABG HCO3 ABG Base Excess ABG Hemoglobin Oxyhemoglobin Sodium Potassium Chloride 97.9 L Carbon Dioxide BUN 75 H Creatinine 1.6 H Glucose 122 H POC Glucose 149 H 163 H Lactic Acid Calcium Phosphorus 5.20 H Magnesium Direct Bilirubin AST ALT Alkaline Phosphatase Lactate Dehydrogenase Troponin T C-Reactive Protein Total Protein Albumin Prealbumin Triglycerides Cholesterol LDL Cholesterol Direct HDL Cholesterol Urine pH Urine WBC (Auto) Urine Creatinine Urine Total Protein Fluid Total Protein Vancomycin Trough Rheumatoid Factor Complement C4 Miscellaneous Test Crossmatch 12/15/16 12/15/16 12/15/16 05:50 11:24 17:01 WBC RBC Hgb Hct MCV MCH MCHC RDW Plt Count Lymph % (Auto) [place] % (Auto) Lymph # [place] # Baso # Seg Neutrophils % Seg Neuts % (Manual) Lymphocytes % (Manual) Monocytes % (Manual) Eosinophils % (Manual) Basophils % (Manual) Nucleated RBC % Seg Neutrophils # Seg Neutrophils # Man Lymphocytes # (Manual) Monocytes # (Manual) Eosinophils # (Manual) Basophils # (Manual) PT INR Fibrinogen dRVVT Confirm Interp Factor V Activity POC ABG pH POC ABG pCO2 POC ABG pO2 ABG pO2 ABG HCO3 ABG Base Excess ABG Hemoglobin Oxyhemoglobin Sodium Potassium Chloride Carbon Dioxide BUN Creatinine Glucose POC Glucose 150 H 146 H 167 H Lactic Acid Calcium Phosphorus Magnesium Direct Bilirubin AST ALT Alkaline Phosphatase Lactate Dehydrogenase Troponin T C-Reactive Protein Total Protein Albumin Prealbumin Triglycerides Cholesterol LDL Cholesterol Direct HDL Cholesterol Urine pH Urine WBC (Auto) Urine Creatinine Urine Total Protein Fluid Total Protein Vancomycin Trough Rheumatoid Factor Complement C4 Miscellaneous Test Crossmatch 12/15/16 12/16/16 12/16/16 23:34 05:25 11:24 WBC RBC Hgb Hct MCV MCH MCHC RDW Plt Count Lymph % (Auto) [place] % (Auto) Lymph # [place] # Baso # Seg Neutrophils % Seg Neuts % (Manual) Lymphocytes % (Manual) Monocytes % (Manual) Eosinophils % (Manual) Basophils % (Manual) Nucleated RBC % Seg Neutrophils # Seg Neutrophils # Man Lymphocytes # (Manual) Monocytes # (Manual) Eosinophils # (Manual) Basophils # (Manual) PT INR Fibrinogen dRVVT Confirm Interp Factor V Activity POC ABG pH POC ABG pCO2 POC ABG pO2 ABG pO2 ABG HCO3 ABG Base Excess ABG Hemoglobin Oxyhemoglobin Sodium Potassium Chloride Carbon Dioxide BUN Creatinine Glucose POC Glucose 127 H 139 H 165 H Lactic Acid Calcium Phosphorus Magnesium Direct Bilirubin AST ALT Alkaline Phosphatase Lactate Dehydrogenase Troponin T C-Reactive Protein Total Protein Albumin Prealbumin Triglycerides Cholesterol LDL Cholesterol Direct HDL Cholesterol Urine pH Urine WBC (Auto) Urine Creatinine Urine Total Protein Fluid Total Protein Vancomycin Trough Rheumatoid Factor Complement C4 Miscellaneous Test Crossmatch 12/16/16 12/16/16 12/16/16 15:30 16:25 17:31 WBC 17.8 H RBC 2.38 L Hgb 6.4 L Hct 20.3 L MCV MCH 27 L MCHC RDW 17.4 H Plt Count Lymph % (Auto) [place] % (Auto) Lymph # [place] # Baso # Seg Neutrophils % Seg Neuts % (Manual) Lymphocytes % (Manual) Monocytes % (Manual) 10.0 H Eosinophils % (Manual) Basophils % (Manual) Nucleated RBC % Seg Neutrophils # Seg Neutrophils # Man 8.5 H Lymphocytes # (Manual) Monocytes # (Manual) 1.8 H Eosinophils # (Manual) Basophils # (Manual) PT INR Fibrinogen dRVVT Confirm Interp Factor V Activity POC ABG pH POC ABG pCO2 POC ABG pO2 ABG pO2 ABG HCO3 ABG Base Excess ABG Hemoglobin Oxyhemoglobin Sodium Potassium Chloride Carbon Dioxide BUN Creatinine Glucose POC Glucose 176 H Lactic Acid Calcium Phosphorus Magnesium Direct Bilirubin AST ALT Alkaline Phosphatase Lactate Dehydrogenase Troponin T C-Reactive Protein Total Protein Albumin Prealbumin Triglycerides Cholesterol LDL Cholesterol Direct HDL Cholesterol Urine pH Urine WBC (Auto) Urine Creatinine Urine Total Protein Fluid Total Protein Vancomycin Trough Rheumatoid Factor Complement C4 Miscellaneous Test Crossmatch See Detail 12/17/16 12/17/16 12/17/16 00:14 04:00 05:00 WBC 20.0 H RBC 2.99 L Hgb 8.5 L Hct 25.7 L MCV MCH MCHC RDW 17.2 H Plt Count Lymph % (Auto) [place] % (Auto) Lymph # [place] # Baso # Seg Neutrophils % Seg Neuts % (Manual) Lymphocytes % (Manual) Monocytes % (Manual) Eosinophils % (Manual) Basophils % (Manual) Nucleated RBC % Seg Neutrophils # Seg Neutrophils # Man Lymphocytes # (Manual) Monocytes # (Manual) Eosinophils # (Manual) Basophils # (Manual) PT INR Fibrinogen dRVVT Confirm Interp Factor V Activity POC ABG pH POC ABG pCO2 POC ABG pO2 ABG pO2 ABG HCO3 ABG Base Excess ABG Hemoglobin Oxyhemoglobin Sodium Potassium Chloride 97.7 L Carbon Dioxide BUN 73 H Creatinine 1.7 H Glucose 136 H POC Glucose 148 H Lactic Acid Calcium Phosphorus 2.20 L Magnesium 2.70 H Direct Bilirubin AST ALT Alkaline Phosphatase Lactate Dehydrogenase Troponin T C-Reactive Protein Total Protein Albumin Prealbumin Triglycerides Cholesterol LDL Cholesterol Direct HDL Cholesterol Urine pH Urine WBC (Auto) Urine Creatinine Urine Total Protein Fluid Total Protein Vancomycin Trough Rheumatoid Factor Complement C4 Miscellaneous Test Crossmatch 12/17/16 12/17/16 12/17/16 05:39 12:50 16:32 WBC RBC Hgb Hct MCV MCH MCHC RDW Plt Count Lymph % (Auto) [place] % (Auto) Lymph # [place] # Baso # Seg Neutrophils % Seg Neuts % (Manual) Lymphocytes % (Manual) Monocytes % (Manual) Eosinophils % (Manual) Basophils % (Manual) Nucleated RBC % Seg Neutrophils # Seg Neutrophils # Man Lymphocytes # (Manual) Monocytes # (Manual) Eosinophils # (Manual) Basophils # (Manual) PT INR Fibrinogen dRVVT Confirm Interp Factor V Activity POC ABG pH POC ABG pCO2 POC ABG pO2 ABG pO2 ABG HCO3 ABG Base Excess ABG Hemoglobin Oxyhemoglobin Sodium Potassium Chloride Carbon Dioxide BUN Creatinine Glucose POC Glucose 162 H 146 H 169 H Lactic Acid Calcium Phosphorus Magnesium Direct Bilirubin AST ALT Alkaline Phosphatase Lactate Dehydrogenase Troponin T C-Reactive Protein Total Protein Albumin Prealbumin Triglycerides Cholesterol LDL Cholesterol Direct HDL Cholesterol Urine pH Urine WBC (Auto) Urine Creatinine Urine Total Protein Fluid Total Protein Vancomycin Trough Rheumatoid Factor Complement C4 Miscellaneous Test Crossmatch 12/17/16 12/18/16 12/18/16 23:57 05:00 05:32 WBC RBC Hgb Hct MCV MCH MCHC RDW Plt Count Lymph % (Auto) [place] % (Auto) Lymph # [place] # Baso # Seg Neutrophils % Seg Neuts % (Manual) Lymphocytes % (Manual) Monocytes % (Manual) Eosinophils % (Manual) Basophils % (Manual) Nucleated RBC % Seg Neutrophils # Seg Neutrophils # Man Lymphocytes # (Manual) Monocytes # (Manual) Eosinophils # (Manual) Basophils # (Manual) PT INR Fibrinogen dRVVT Confirm Interp Factor V Activity POC ABG pH POC ABG pCO2 POC ABG pO2 ABG pO2 ABG HCO3 ABG Base Excess ABG Hemoglobin Oxyhemoglobin Sodium Potassium Chloride 97.0 L Carbon Dioxide BUN 63 H Creatinine 1.4 H Glucose 174 H POC Glucose 145 H 201 H Lactic Acid Calcium Phosphorus 1.70 L D Magnesium Direct Bilirubin AST ALT Alkaline Phosphatase 257 H Lactate Dehydrogenase Troponin T C-Reactive Protein Total Protein 5.9 L Albumin 1.8 L Prealbumin Triglycerides Cholesterol LDL Cholesterol Direct HDL Cholesterol Urine pH Urine WBC (Auto) Urine Creatinine Urine Total Protein Fluid Total Protein Vancomycin Trough Rheumatoid Factor Complement C4 Miscellaneous Test Crossmatch 12/18/16 12/18/16 12/18/16 11:43 16:52 23:52 WBC RBC Hgb Hct MCV MCH MCHC RDW Plt Count Lymph % (Auto) [place] % (Auto) Lymph # [place] # Baso # Seg Neutrophils % Seg Neuts % (Manual) Lymphocytes % (Manual) Monocytes % (Manual) Eosinophils % (Manual) Basophils % (Manual) Nucleated RBC % Seg Neutrophils # Seg Neutrophils # Man Lymphocytes # (Manual) Monocytes # (Manual) Eosinophils # (Manual) Basophils # (Manual) PT INR Fibrinogen dRVVT Confirm Interp Factor V Activity POC ABG pH POC ABG pCO2 POC ABG pO2 ABG pO2 ABG HCO3 ABG Base Excess ABG Hemoglobin Oxyhemoglobin Sodium Potassium Chloride Carbon Dioxide BUN Creatinine Glucose POC Glucose 177 H 110 H 162 H Lactic Acid Calcium Phosphorus Magnesium Direct Bilirubin AST ALT Alkaline Phosphatase Lactate Dehydrogenase Troponin T C-Reactive Protein Total Protein Albumin Prealbumin Triglycerides Cholesterol LDL Cholesterol Direct HDL Cholesterol Urine pH Urine WBC (Auto) Urine Creatinine Urine Total Protein Fluid Total Protein Vancomycin Trough Rheumatoid Factor Complement C4 Miscellaneous Test Crossmatch 12/19/16 12/19/16 12/19/16 05:02 05:24 09:30 WBC 20.1 H RBC 2.73 L Hgb 7.6 L Hct 23.6 L MCV MCH MCHC RDW 17.6 H Plt Count Lymph % (Auto) [place] % (Auto) Lymph # [place] # Baso # Seg Neutrophils % Seg Neuts % (Manual) Lymphocytes % (Manual) 13.0 L Monocytes % (Manual) Eosinophils % (Manual) Basophils % (Manual) Nucleated RBC % 1.0 H Seg Neutrophils # Seg Neutrophils # Man 12.9 H Lymphocytes # (Manual) Monocytes # (Manual) 1.4 H Eosinophils # (Manual) Basophils # (Manual) 0.2 H PT INR Fibrinogen dRVVT Confirm Interp Factor V Activity POC ABG pH POC ABG pCO2 POC ABG pO2 ABG pO2 ABG HCO3 ABG Base Excess ABG Hemoglobin Oxyhemoglobin Sodium Potassium Chloride 97.8 L Carbon Dioxide BUN 84 H Creatinine 1.6 H Glucose 133 H POC Glucose 134 H Lactic Acid Calcium Phosphorus Magnesium Direct Bilirubin AST ALT Alkaline Phosphatase Lactate Dehydrogenase Troponin T C-Reactive Protein Total Protein Albumin Prealbumin Triglycerides Cholesterol LDL Cholesterol Direct HDL Cholesterol Urine pH Urine WBC (Auto) Urine Creatinine Urine Total Protein Fluid Total Protein Vancomycin Trough Rheumatoid Factor Complement C4 Miscellaneous Test Crossmatch 12/19/16 12/19/16 12/19/16 09:36 11:12 18:29 WBC RBC Hgb Hct MCV MCH MCHC RDW Plt Count Lymph % (Auto) [place] % (Auto) Lymph # [place] # Baso # Seg Neutrophils % Seg Neuts % (Manual) Lymphocytes % (Manual) Monocytes % (Manual) Eosinophils % (Manual) Basophils % (Manual) Nucleated RBC % Seg Neutrophils # Seg Neutrophils # Man Lymphocytes # (Manual) Monocytes # (Manual) Eosinophils # (Manual) Basophils # (Manual) PT INR Fibrinogen dRVVT Confirm Interp Factor V Activity POC ABG pH 7.503 H POC ABG pCO2 30.1 L POC ABG pO2 ABG pO2 ABG HCO3 ABG Base Excess ABG Hemoglobin Oxyhemoglobin Sodium Potassium Chloride Carbon Dioxide BUN Creatinine Glucose POC Glucose 138 H 156 H Lactic Acid Calcium Phosphorus Magnesium Direct Bilirubin AST ALT Alkaline Phosphatase Lactate Dehydrogenase Troponin T C-Reactive Protein Total Protein Albumin Prealbumin Triglycerides Cholesterol LDL Cholesterol Direct HDL Cholesterol Urine pH Urine WBC (Auto) Urine Creatinine Urine Total Protein Fluid Total Protein Vancomycin Trough Rheumatoid Factor Complement C4 Miscellaneous Test Crossmatch 12/20/16 12/20/16 12/20/16 00:03 06:17 07:07 WBC RBC Hgb Hct MCV MCH MCHC RDW Plt Count Lymph % (Auto) [place] % (Auto) Lymph # [place] # Baso # Seg Neutrophils % Seg Neuts % (Manual) Lymphocytes % (Manual) Monocytes % (Manual) Eosinophils % (Manual) Basophils % (Manual) Nucleated RBC % Seg Neutrophils # Seg Neutrophils # Man Lymphocytes # (Manual) Monocytes # (Manual) Eosinophils # (Manual) Basophils # (Manual) PT INR Fibrinogen dRVVT Confirm Interp Factor V Activity POC ABG pH POC ABG pCO2 POC ABG pO2 ABG pO2 ABG HCO3 ABG Base Excess ABG Hemoglobin Oxyhemoglobin Sodium Potassium Chloride 97.1 L Carbon Dioxide 20 L BUN 97 H Creatinine 1.8 H Glucose 153 H POC Glucose 152 H 175 H Lactic Acid Calcium Phosphorus Magnesium Direct Bilirubin AST ALT Alkaline Phosphatase Lactate Dehydrogenase Troponin T C-Reactive Protein Total Protein Albumin Prealbumin Triglycerides Cholesterol LDL Cholesterol Direct HDL Cholesterol Urine pH Urine WBC (Auto) Urine Creatinine Urine Total Protein Fluid Total Protein Vancomycin Trough Rheumatoid Factor Complement C4 Miscellaneous Test Crossmatch 12/20/16 12/20/16 12/20/16 12:00 17:42 23:53 WBC RBC Hgb Hct MCV MCH MCHC RDW Plt Count Lymph % (Auto) [place] % (Auto) Lymph # [place] # Baso # Seg Neutrophils % Seg Neuts % (Manual) Lymphocytes % (Manual) Monocytes % (Manual) Eosinophils % (Manual) Basophils % (Manual) Nucleated RBC % Seg Neutrophils # Seg Neutrophils # Man Lymphocytes # (Manual) Monocytes # (Manual) Eosinophils # (Manual) Basophils # (Manual) PT INR Fibrinogen dRVVT Confirm Interp Factor V Activity POC ABG pH POC ABG pCO2 POC ABG pO2 ABG pO2 ABG HCO3 ABG Base Excess ABG Hemoglobin Oxyhemoglobin Sodium Potassium Chloride Carbon Dioxide BUN Creatinine Glucose POC Glucose 141 H 156 H 132 H Lactic Acid Calcium Phosphorus Magnesium Direct Bilirubin AST ALT Alkaline Phosphatase Lactate Dehydrogenase Troponin T C-Reactive Protein Total Protein Albumin Prealbumin Triglycerides Cholesterol LDL Cholesterol Direct HDL Cholesterol Urine pH Urine WBC (Auto) Urine Creatinine Urine Total Protein Fluid Total Protein Vancomycin Trough Rheumatoid Factor Complement C4 Miscellaneous Test Crossmatch 12/21/16 12/21/16 12/21/16 05:49 08:50 12:19 WBC RBC Hgb Hct MCV MCH MCHC RDW Plt Count Lymph % (Auto) [place] % (Auto) Lymph # [place] # Baso # Seg Neutrophils % Seg Neuts % (Manual) Lymphocytes % (Manual) Monocytes % (Manual) Eosinophils % (Manual) Basophils % (Manual) Nucleated RBC % Seg Neutrophils # Seg Neutrophils # Man Lymphocytes # (Manual) Monocytes # (Manual) Eosinophils # (Manual) Basophils # (Manual) PT INR Fibrinogen dRVVT Confirm Interp Factor V Activity POC ABG pH POC ABG pCO2 POC ABG pO2 ABG pO2 ABG HCO3 ABG Base Excess ABG Hemoglobin Oxyhemoglobin Sodium Potassium 5.2 H D Chloride Carbon Dioxide BUN 63 H Creatinine Glucose 122 H POC Glucose 132 H 136 H Lactic Acid Calcium 8.3 L Phosphorus Magnesium Direct Bilirubin AST ALT Alkaline Phosphatase Lactate Dehydrogenase Troponin T C-Reactive Protein Total Protein Albumin Prealbumin Triglycerides Cholesterol LDL Cholesterol Direct HDL Cholesterol Urine pH Urine WBC (Auto) Urine Creatinine Urine Total Protein Fluid Total Protein Vancomycin Trough Rheumatoid Factor Complement C4 Miscellaneous Test Crossmatch 12/21/16 12/21/16 12/22/16 17:22 23:58 05:49 WBC RBC Hgb Hct MCV MCH MCHC RDW Plt Count Lymph % (Auto) [place] % (Auto) Lymph # [place] # Baso # Seg Neutrophils % Seg Neuts % (Manual) Lymphocytes % (Manual) Monocytes % (Manual) Eosinophils % (Manual) Basophils % (Manual) Nucleated RBC % Seg Neutrophils # Seg Neutrophils # Man Lymphocytes # (Manual) Monocytes # (Manual) Eosinophils # (Manual) Basophils # (Manual) PT INR Fibrinogen dRVVT Confirm Interp Factor V Activity POC ABG pH POC ABG pCO2 POC ABG pO2 ABG pO2 ABG HCO3 ABG Base Excess ABG Hemoglobin Oxyhemoglobin Sodium Potassium Chloride Carbon Dioxide BUN Creatinine Glucose POC Glucose 135 H 149 H 140 H Lactic Acid Calcium Phosphorus Magnesium Direct Bilirubin AST ALT Alkaline Phosphatase Lactate Dehydrogenase Troponin T C-Reactive Protein Total Protein Albumin Prealbumin Triglycerides Cholesterol LDL Cholesterol Direct HDL Cholesterol Urine pH Urine WBC (Auto) Urine Creatinine Urine Total Protein Fluid Total Protein Vancomycin Trough Rheumatoid Factor Complement C4 Miscellaneous Test Crossmatch 12/22/16 12/22/16 12/22/16 06:10 11:17 17:31 WBC RBC Hgb Hct MCV MCH MCHC RDW Plt Count Lymph % (Auto) [place] % (Auto) Lymph # [place] # Baso # Seg Neutrophils % Seg Neuts % (Manual) Lymphocytes % (Manual) Monocytes % (Manual) Eosinophils % (Manual) Basophils % (Manual) Nucleated RBC % Seg Neutrophils # Seg Neutrophils # Man Lymphocytes # (Manual) Monocytes # (Manual) Eosinophils # (Manual) Basophils # (Manual) PT INR Fibrinogen dRVVT Confirm Interp Factor V Activity POC ABG pH POC ABG pCO2 POC ABG pO2 ABG pO2 ABG HCO3 ABG Base Excess ABG Hemoglobin Oxyhemoglobin Sodium Potassium Chloride Carbon Dioxide BUN 76 H Creatinine 1.5 H Glucose 241 H POC Glucose 193 H 148 H Lactic Acid Calcium Phosphorus Magnesium Direct Bilirubin AST ALT Alkaline Phosphatase Lactate Dehydrogenase Troponin T C-Reactive Protein Total Protein Albumin Prealbumin Triglycerides Cholesterol LDL Cholesterol Direct HDL Cholesterol Urine pH Urine WBC (Auto) Urine Creatinine Urine Total Protein Fluid Total Protein Vancomycin Trough Rheumatoid Factor Complement C4 Miscellaneous Test Crossmatch 12/22/16 12/23/16 12/23/16 23:58 05:00 05:26 WBC RBC Hgb Hct MCV MCH MCHC RDW Plt Count Lymph % (Auto) [place] % (Auto) Lymph # [place] # Baso # Seg Neutrophils % Seg Neuts % (Manual) Lymphocytes % (Manual) Monocytes % (Manual) Eosinophils % (Manual) Basophils % (Manual) Nucleated RBC % Seg Neutrophils # Seg Neutrophils # Man Lymphocytes # (Manual) Monocytes # (Manual) Eosinophils # (Manual) Basophils # (Manual) PT INR Fibrinogen dRVVT Confirm Interp Factor V Activity POC ABG pH POC ABG pCO2 POC ABG pO2 ABG pO2 ABG HCO3 ABG Base Excess ABG Hemoglobin Oxyhemoglobin Sodium Potassium Chloride Carbon Dioxide BUN 49 H Creatinine Glucose 143 H POC Glucose 165 H 154 H Lactic Acid Calcium 8.2 L Phosphorus Magnesium 1.60 L Direct Bilirubin AST ALT Alkaline Phosphatase Lactate Dehydrogenase Troponin T C-Reactive Protein Total Protein Albumin Prealbumin Triglycerides Cholesterol LDL Cholesterol Direct HDL Cholesterol Urine pH Urine WBC (Auto) Urine Creatinine Urine Total Protein Fluid Total Protein Vancomycin Trough Rheumatoid Factor Complement C4 Miscellaneous Test Crossmatch 12/23/16 12/23/16 12/24/16 12:35 17:01 00:01 WBC RBC Hgb Hct MCV MCH MCHC RDW Plt Count Lymph % (Auto) [place] % (Auto) Lymph # [place] # Baso # Seg Neutrophils % Seg Neuts % (Manual) Lymphocytes % (Manual) Monocytes % (Manual) Eosinophils % (Manual) Basophils % (Manual) Nucleated RBC % Seg Neutrophils # Seg Neutrophils # Man Lymphocytes # (Manual) Monocytes # (Manual) Eosinophils # (Manual) Basophils # (Manual) PT INR Fibrinogen dRVVT Confirm Interp Factor V Activity POC ABG pH POC ABG pCO2 POC ABG pO2 ABG pO2 ABG HCO3 ABG Base Excess ABG Hemoglobin Oxyhemoglobin Sodium Potassium Chloride Carbon Dioxide BUN Creatinine Glucose POC Glucose 164 H 149 H 135 H Lactic Acid Calcium Phosphorus Magnesium Direct Bilirubin AST ALT Alkaline Phosphatase Lactate Dehydrogenase Troponin T C-Reactive Protein Total Protein Albumin Prealbumin Triglycerides Cholesterol LDL Cholesterol Direct HDL Cholesterol Urine pH Urine WBC (Auto) Urine Creatinine Urine Total Protein Fluid Total Protein Vancomycin Trough Rheumatoid Factor Complement C4 Miscellaneous Test Crossmatch 12/24/16 12/24/16 12/24/16 05:41 07:01 11:38 WBC RBC Hgb Hct MCV MCH MCHC RDW Plt Count Lymph % (Auto) [place] % (Auto) Lymph # [place] # Baso # Seg Neutrophils % Seg Neuts % (Manual) Lymphocytes % (Manual) Monocytes % (Manual) Eosinophils % (Manual) Basophils % (Manual) Nucleated RBC % Seg Neutrophils # Seg Neutrophils # Man Lymphocytes # (Manual) Monocytes # (Manual) Eosinophils # (Manual) Basophils # (Manual) PT INR Fibrinogen dRVVT Confirm Interp Factor V Activity POC ABG pH POC ABG pCO2 POC ABG pO2 ABG pO2 ABG HCO3 ABG Base Excess ABG Hemoglobin Oxyhemoglobin Sodium Potassium Chloride Carbon Dioxide BUN 72 H Creatinine 1.3 H Glucose 130 H POC Glucose 132 H 156 H Lactic Acid Calcium 8.2 L Phosphorus Magnesium Direct Bilirubin AST ALT Alkaline Phosphatase Lactate Dehydrogenase Troponin T C-Reactive Protein Total Protein Albumin Prealbumin Triglycerides Cholesterol LDL Cholesterol Direct HDL Cholesterol Urine pH Urine WBC (Auto) Urine Creatinine Urine Total Protein Fluid Total Protein Vancomycin Trough Rheumatoid Factor Complement C4 Miscellaneous Test Crossmatch 12/24/16 12/25/16 12/25/16 17:53 00:23 05:45 WBC RBC Hgb Hct MCV MCH MCHC RDW Plt Count Lymph % (Auto) [place] % (Auto) Lymph # [place] # Baso # Seg Neutrophils % Seg Neuts % (Manual) Lymphocytes % (Manual) Monocytes % (Manual) Eosinophils % (Manual) Basophils % (Manual) Nucleated RBC % Seg Neutrophils # Seg Neutrophils # Man Lymphocytes # (Manual) Monocytes # (Manual) Eosinophils # (Manual) Basophils # (Manual) PT INR Fibrinogen dRVVT Confirm Interp Factor V Activity POC ABG pH POC ABG pCO2 POC ABG pO2 ABG pO2 ABG HCO3 ABG Base Excess ABG Hemoglobin Oxyhemoglobin Sodium 146 H Potassium Chloride Carbon Dioxide BUN 51 H Creatinine Glucose 109 H POC Glucose 169 H 117 H Lactic Acid Calcium Phosphorus Magnesium Direct Bilirubin AST ALT Alkaline Phosphatase Lactate Dehydrogenase Troponin T C-Reactive Protein Total Protein Albumin Prealbumin Triglycerides Cholesterol LDL Cholesterol Direct HDL Cholesterol Urine pH Urine WBC (Auto) Urine Creatinine Urine Total Protein Fluid Total Protein Vancomycin Trough Rheumatoid Factor Complement C4 Miscellaneous Test Crossmatch 12/25/16 12/25/16 12/25/16 06:43 11:29 17:14 WBC RBC Hgb Hct MCV MCH MCHC RDW Plt Count Lymph % (Auto) [place] % (Auto) Lymph # [place] # Baso # Seg Neutrophils % Seg Neuts % (Manual) Lymphocytes % (Manual) Monocytes % (Manual) Eosinophils % (Manual) Basophils % (Manual) Nucleated RBC % Seg Neutrophils # Seg Neutrophils # Man Lymphocytes # (Manual) Monocytes # (Manual) Eosinophils # (Manual) Basophils # (Manual) PT INR Fibrinogen dRVVT Confirm Interp Factor V Activity POC ABG pH POC ABG pCO2 POC ABG pO2 ABG pO2 ABG HCO3 ABG Base Excess ABG Hemoglobin Oxyhemoglobin Sodium Potassium Chloride Carbon Dioxide BUN Creatinine Glucose POC Glucose 117 H 128 H 120 H Lactic Acid Calcium Phosphorus Magnesium Direct Bilirubin AST ALT Alkaline Phosphatase Lactate Dehydrogenase Troponin T C-Reactive Protein Total Protein Albumin Prealbumin Triglycerides Cholesterol LDL Cholesterol Direct HDL Cholesterol Urine pH Urine WBC (Auto) Urine Creatinine Urine Total Protein Fluid Total Protein Vancomycin Trough Rheumatoid Factor Complement C4 Miscellaneous Test Crossmatch 12/25/16 12/26/16 12/26/16 23:54 05:40 05:50 WBC 16.2 H RBC 2.32 L Hgb 6.2 L Hct 20.1 L MCV MCH 27 L MCHC RDW 18.6 H Plt Count Lymph % (Auto) [place] % (Auto) Lymph # [place] # Baso # Seg Neutrophils % Seg Neuts % (Manual) Lymphocytes % (Manual) Monocytes % (Manual) Eosinophils % (Manual) Basophils % (Manual) Nucleated RBC % Seg Neutrophils # Seg Neutrophils # Man Lymphocytes # (Manual) Monocytes # (Manual) Eosinophils # (Manual) Basophils # (Manual) PT INR Fibrinogen dRVVT Confirm Interp Factor V Activity POC ABG pH POC ABG pCO2 POC ABG pO2 ABG pO2 ABG HCO3 ABG Base Excess ABG Hemoglobin Oxyhemoglobin Sodium Potassium Chloride Carbon Dioxide BUN Creatinine Glucose POC Glucose 126 H 132 H Lactic Acid Calcium Phosphorus Magnesium Direct Bilirubin AST ALT Alkaline Phosphatase Lactate Dehydrogenase Troponin T C-Reactive Protein Total Protein Albumin Prealbumin Triglycerides Cholesterol LDL Cholesterol Direct HDL Cholesterol Urine pH Urine WBC (Auto) Urine Creatinine Urine Total Protein Fluid Total Protein Vancomycin Trough Rheumatoid Factor Complement C4 Miscellaneous Test Crossmatch 12/26/16 12/26/16 12/26/16 05:50 12:17 12:33 WBC RBC Hgb Hct MCV MCH MCHC RDW Plt Count Lymph % (Auto) [place] % (Auto) Lymph # [place] # Baso # Seg Neutrophils % Seg Neuts % (Manual) Lymphocytes % (Manual) Monocytes % (Manual) Eosinophils % (Manual) Basophils % (Manual) Nucleated RBC % Seg Neutrophils # Seg Neutrophils # Man Lymphocytes # (Manual) Monocytes # (Manual) Eosinophils # (Manual) Basophils # (Manual) PT INR Fibrinogen dRVVT Confirm Interp Factor V Activity POC ABG pH POC ABG pCO2 POC ABG pO2 ABG pO2 ABG HCO3 ABG Base Excess ABG Hemoglobin Oxyhemoglobin Sodium Potassium Chloride Carbon Dioxide BUN 73 H Creatinine 1.3 H Glucose 113 H POC Glucose 117 H Lactic Acid Calcium Phosphorus Magnesium Direct Bilirubin AST ALT Alkaline Phosphatase Lactate Dehydrogenase Troponin T C-Reactive Protein Total Protein Albumin Prealbumin Triglycerides Cholesterol LDL Cholesterol Direct HDL Cholesterol Urine pH Urine WBC (Auto) Urine Creatinine Urine Total Protein Fluid Total Protein Vancomycin Trough Rheumatoid Factor Complement C4 Miscellaneous Test Crossmatch See Detail 12/26/16 12/26/16 12/27/16 20:00 23:21 05:00 WBC RBC Hgb 8.4 L Hct 26.3 L D MCV MCH MCHC RDW Plt Count Lymph % (Auto) [place] % (Auto) Lymph # [place] # Baso # Seg Neutrophils % Seg Neuts % (Manual) Lymphocytes % (Manual) Monocytes % (Manual) Eosinophils % (Manual) Basophils % (Manual) Nucleated RBC % Seg Neutrophils # Seg Neutrophils # Man Lymphocytes # (Manual) Monocytes # (Manual) Eosinophils # (Manual) Basophils # (Manual) PT INR Fibrinogen dRVVT Confirm Interp Factor V Activity POC ABG pH POC ABG pCO2 POC ABG pO2 ABG pO2 ABG HCO3 ABG Base Excess ABG Hemoglobin Oxyhemoglobin Sodium Potassium Chloride Carbon Dioxide BUN 85 H Creatinine 1.6 H Glucose 118 H POC Glucose 124 H Lactic Acid Calcium Phosphorus 4.80 H Magnesium Direct Bilirubin AST ALT Alkaline Phosphatase Lactate Dehydrogenase Troponin T C-Reactive Protein Total Protein Albumin Prealbumin Triglycerides Cholesterol LDL Cholesterol Direct HDL Cholesterol Urine pH Urine WBC (Auto) Urine Creatinine Urine Total Protein Fluid Total Protein Vancomycin Trough Rheumatoid Factor Complement C4 Miscellaneous Test Crossmatch 12/27/16 12/27/16 12/27/16 05:00 05:35 12:24 WBC RBC Hgb 7.6 L Hct 22.8 L MCV MCH MCHC RDW Plt Count Lymph % (Auto) [place] % (Auto) Lymph # [place] # Baso # Seg Neutrophils % Seg Neuts % (Manual) Lymphocytes % (Manual) Monocytes % (Manual) Eosinophils % (Manual) Basophils % (Manual) Nucleated RBC % Seg Neutrophils # Seg Neutrophils # Man Lymphocytes # (Manual) Monocytes # (Manual) Eosinophils # (Manual) Basophils # (Manual) PT INR Fibrinogen dRVVT Confirm Interp Factor V Activity POC ABG pH POC ABG pCO2 POC ABG pO2 ABG pO2 ABG HCO3 ABG Base Excess ABG Hemoglobin Oxyhemoglobin Sodium Potassium Chloride Carbon Dioxide BUN Creatinine Glucose POC Glucose 115 H 131 H Lactic Acid Calcium Phosphorus Magnesium Direct Bilirubin AST ALT Alkaline Phosphatase Lactate Dehydrogenase Troponin T C-Reactive Protein Total Protein Albumin Prealbumin Triglycerides Cholesterol LDL Cholesterol Direct HDL Cholesterol Urine pH Urine WBC (Auto) Urine Creatinine Urine Total Protein Fluid Total Protein Vancomycin Trough Rheumatoid Factor Complement C4 Miscellaneous Test Crossmatch 12/27/16 12/28/16 12/28/16 17:16 00:18 04:00 WBC RBC Hgb Hct MCV MCH MCHC RDW Plt Count Lymph % (Auto) [place] % (Auto) Lymph # [place] # Baso # Seg Neutrophils % Seg Neuts % (Manual) Lymphocytes % (Manual) Monocytes % (Manual) Eosinophils % (Manual) Basophils % (Manual) Nucleated RBC % Seg Neutrophils # Seg Neutrophils # Man Lymphocytes # (Manual) Monocytes # (Manual) Eosinophils # (Manual) Basophils # (Manual) PT INR Fibrinogen dRVVT Confirm Interp Factor V Activity POC ABG pH POC ABG pCO2 POC ABG pO2 ABG pO2 ABG HCO3 ABG Base Excess ABG Hemoglobin Oxyhemoglobin Sodium Potassium 3.5 L Chloride Carbon Dioxide BUN 57 H Creatinine Glucose 118 H POC Glucose 136 H 120 H Lactic Acid Calcium 8.3 L Phosphorus Magnesium Direct Bilirubin AST ALT Alkaline Phosphatase Lactate Dehydrogenase Troponin T C-Reactive Protein Total Protein Albumin Prealbumin Triglycerides Cholesterol LDL Cholesterol Direct HDL Cholesterol Urine pH Urine WBC (Auto) Urine Creatinine Urine Total Protein Fluid Total Protein Vancomycin Trough Rheumatoid Factor Complement C4 Miscellaneous Test Crossmatch 12/28/16 12/28/16 12/28/16 04:00 05:11 08:30 WBC 17.0 H RBC 2.58 L Hgb 7.1 L Hct 22.0 L MCV MCH MCHC RDW 17.6 H Plt Count Lymph % (Auto) 12.2 L [place] % (Auto) Lymph # [place] # 1.1 H Baso # Seg Neutrophils % 80.5 H Seg Neuts % (Manual) Lymphocytes % (Manual) Monocytes % (Manual) Eosinophils % (Manual) Basophils % (Manual) Nucleated RBC % Seg Neutrophils # 13.7 H Seg Neutrophils # Man Lymphocytes # (Manual) Monocytes # (Manual) Eosinophils # (Manual) Basophils # (Manual) PT 16.1 H INR 1.23 H Fibrinogen dRVVT Confirm Interp Factor V Activity POC ABG pH POC ABG pCO2 POC ABG pO2 ABG pO2 ABG HCO3 ABG Base Excess ABG Hemoglobin Oxyhemoglobin Sodium Potassium Chloride Carbon Dioxide BUN Creatinine Glucose POC Glucose 122 H Lactic Acid Calcium Phosphorus Magnesium Direct Bilirubin AST ALT Alkaline Phosphatase Lactate Dehydrogenase Troponin T C-Reactive Protein Total Protein Albumin Prealbumin Triglycerides Cholesterol LDL Cholesterol Direct HDL Cholesterol Urine pH Urine WBC (Auto) Urine Creatinine Urine Total Protein Fluid Total Protein Vancomycin Trough Rheumatoid Factor Complement C4 Miscellaneous Test Crossmatch 12/28/16 12/28/16 12/28/16 12:27 16:32 23:46 WBC RBC Hgb Hct MCV MCH MCHC RDW Plt Count Lymph % (Auto) [place] % (Auto) Lymph # [place] # Baso # Seg Neutrophils % Seg Neuts % (Manual) Lymphocytes % (Manual) Monocytes % (Manual) Eosinophils % (Manual) Basophils % (Manual) Nucleated RBC % Seg Neutrophils # Seg Neutrophils # Man Lymphocytes # (Manual) Monocytes # (Manual) Eosinophils # (Manual) Basophils # (Manual) PT INR Fibrinogen dRVVT Confirm Interp Factor V Activity POC ABG pH POC ABG pCO2 POC ABG pO2 ABG pO2 ABG HCO3 ABG Base Excess ABG Hemoglobin Oxyhemoglobin Sodium Potassium Chloride Carbon Dioxide BUN Creatinine Glucose POC Glucose 127 H 117 H 108 H Lactic Acid Calcium Phosphorus Magnesium Direct Bilirubin AST ALT Alkaline Phosphatase Lactate Dehydrogenase Troponin T C-Reactive Protein Total Protein Albumin Prealbumin Triglycerides Cholesterol LDL Cholesterol Direct HDL Cholesterol Urine pH Urine WBC (Auto) Urine Creatinine Urine Total Protein Fluid Total Protein Vancomycin Trough Rheumatoid Factor Complement C4 Miscellaneous Test Crossmatch 12/29/16 12/29/16 12/29/16 05:15 05:15 05:32 WBC RBC Hgb Hct MCV MCH MCHC RDW Plt Count Lymph % (Auto) [place] % (Auto) Lymph # [place] # Baso # Seg Neutrophils % Seg Neuts % (Manual) Lymphocytes % (Manual) Monocytes % (Manual) Eosinophils % (Manual) Basophils % (Manual) Nucleated RBC % Seg Neutrophils # Seg Neutrophils # Man Lymphocytes # (Manual) Monocytes # (Manual) Eosinophils # (Manual) Basophils # (Manual) PT INR Fibrinogen dRVVT Confirm Interp Factor V Activity POC ABG pH POC ABG pCO2 POC ABG pO2 ABG pO2 ABG HCO3 ABG Base Excess ABG Hemoglobin Oxyhemoglobin Sodium Potassium Chloride Carbon Dioxide BUN 74 H Creatinine 1.6 H Glucose 111 H POC Glucose 123 H Lactic Acid Calcium Phosphorus Magnesium Direct Bilirubin AST ALT Alkaline Phosphatase Lactate Dehydrogenase Troponin T C-Reactive Protein Total Protein Albumin Prealbumin 0.110 L Triglycerides Cholesterol LDL Cholesterol Direct HDL Cholesterol Urine pH Urine WBC (Auto) Urine Creatinine Urine Total Protein Fluid Total Protein Vancomycin Trough Rheumatoid Factor Complement C4 Miscellaneous Test Crossmatch 12/29/16 12/29/16 12/29/16 11:43 13:45 14:00 WBC 13.8 H RBC 2.26 L Hgb 6.3 L Hct 20.4 L MCV MCH MCHC RDW 18.3 H Plt Count Lymph % (Auto) [place] % (Auto) Lymph # [place] # 0.9 H Baso # Seg Neutrophils % 78.6 H Seg Neuts % (Manual) Lymphocytes % (Manual) Monocytes % (Manual) Eosinophils % (Manual) Basophils % (Manual) Nucleated RBC % Seg Neutrophils # 10.8 H Seg Neutrophils # Man Lymphocytes # (Manual) Monocytes # (Manual) Eosinophils # (Manual) Basophils # (Manual) PT INR Fibrinogen dRVVT Confirm Interp Factor V Activity POC ABG pH POC ABG pCO2 POC ABG pO2 ABG pO2 ABG HCO3 ABG Base Excess ABG Hemoglobin Oxyhemoglobin Sodium Potassium Chloride Carbon Dioxide BUN Creatinine Glucose POC Glucose 133 H Lactic Acid Calcium Phosphorus Magnesium Direct Bilirubin AST ALT Alkaline Phosphatase Lactate Dehydrogenase Troponin T C-Reactive Protein Total Protein Albumin Prealbumin Triglycerides Cholesterol LDL Cholesterol Direct HDL Cholesterol Urine pH Urine WBC (Auto) Urine Creatinine Urine Total Protein Fluid Total Protein Vancomycin Trough Rheumatoid Factor Complement C4 Miscellaneous Test Crossmatch See Detail 12/29/16 12/29/16 12/29/16 17:03 23:15 23:22 WBC RBC Hgb 7.3 L Hct 22.3 L MCV MCH MCHC RDW Plt Count Lymph % (Auto) [place] % (Auto) Lymph # [place] # Baso # Seg Neutrophils % Seg Neuts % (Manual) Lymphocytes % (Manual) Monocytes % (Manual) Eosinophils % (Manual) Basophils % (Manual) Nucleated RBC % Seg Neutrophils # Seg Neutrophils # Man Lymphocytes # (Manual) Monocytes # (Manual) Eosinophils # (Manual) Basophils # (Manual) PT INR Fibrinogen dRVVT Confirm Interp Factor V Activity POC ABG pH POC ABG pCO2 POC ABG pO2 ABG pO2 ABG HCO3 ABG Base Excess ABG Hemoglobin Oxyhemoglobin Sodium Potassium Chloride Carbon Dioxide BUN Creatinine Glucose POC Glucose 139 H 120 H Lactic Acid Calcium Phosphorus Magnesium Direct Bilirubin AST ALT Alkaline Phosphatase Lactate Dehydrogenase Troponin T C-Reactive Protein Total Protein Albumin Prealbumin Triglycerides Cholesterol LDL Cholesterol Direct HDL Cholesterol Urine pH Urine WBC (Auto) Urine Creatinine Urine Total Protein Fluid Total Protein Vancomycin Trough Rheumatoid Factor Complement C4 Miscellaneous Test Crossmatch 12/30/16 12/30/16 12/30/16 04:20 04:20 05:43 WBC 15.6 H RBC 2.81 L Hgb 8.0 L Hct 24.0 L MCV MCH MCHC RDW 16.9 H Plt Count Lymph % (Auto) [place] % (Auto) Lymph # [place] # 1.0 H Baso # Seg Neutrophils % 76.2 H Seg Neuts % (Manual) Lymphocytes % (Manual) Monocytes % (Manual) Eosinophils % (Manual) Basophils % (Manual) Nucleated RBC % Seg Neutrophils # 11.9 H Seg Neutrophils # Man Lymphocytes # (Manual) Monocytes # (Manual) Eosinophils # (Manual) Basophils # (Manual) PT INR Fibrinogen dRVVT Confirm Interp Factor V Activity POC ABG pH POC ABG pCO2 POC ABG pO2 ABG pO2 ABG HCO3 ABG Base Excess ABG Hemoglobin Oxyhemoglobin Sodium Potassium Chloride Carbon Dioxide BUN 87 H Creatinine 1.8 H Glucose 119 H POC Glucose 115 H Lactic Acid Calcium Phosphorus Magnesium Direct Bilirubin AST ALT Alkaline Phosphatase Lactate Dehydrogenase Troponin T C-Reactive Protein Total Protein Albumin Prealbumin Triglycerides Cholesterol LDL Cholesterol Direct HDL Cholesterol Urine pH Urine WBC (Auto) Urine Creatinine Urine Total Protein Fluid Total Protein Vancomycin Trough Rheumatoid Factor Complement C4 Miscellaneous Test Crossmatch 12/30/16 12/30/16 12/31/16 17:27 23:21 04:00 WBC RBC Hgb Hct MCV MCH MCHC RDW Plt Count Lymph % (Auto) [place] % (Auto) Lymph # [place] # Baso # Seg Neutrophils % Seg Neuts % (Manual) Lymphocytes % (Manual) Monocytes % (Manual) Eosinophils % (Manual) Basophils % (Manual) Nucleated RBC % Seg Neutrophils # Seg Neutrophils # Man Lymphocytes # (Manual) Monocytes # (Manual) Eosinophils # (Manual) Basophils # (Manual) PT INR Fibrinogen dRVVT Confirm Interp Factor V Activity POC ABG pH POC ABG pCO2 POC ABG pO2 ABG pO2 ABG HCO3 ABG Base Excess ABG Hemoglobin Oxyhemoglobin Sodium Potassium Chloride Carbon Dioxide BUN 59 H Creatinine Glucose 298 H POC Glucose 144 H 125 H Lactic Acid Calcium Phosphorus Magnesium Direct Bilirubin AST ALT Alkaline Phosphatase Lactate Dehydrogenase Troponin T C-Reactive Protein Total Protein Albumin Prealbumin Triglycerides Cholesterol LDL Cholesterol Direct HDL Cholesterol Urine pH Urine WBC (Auto) Urine Creatinine Urine Total Protein Fluid Total Protein Vancomycin Trough Rheumatoid Factor Complement C4 Miscellaneous Test Crossmatch 12/31/16 12/31/16 12/31/16 05:11 12:18 18:17 WBC RBC Hgb Hct MCV MCH MCHC RDW Plt Count Lymph % (Auto) [place] % (Auto) Lymph # [place] # Baso # Seg Neutrophils % Seg Neuts % (Manual) Lymphocytes % (Manual) Monocytes % (Manual) Eosinophils % (Manual) Basophils % (Manual) Nucleated RBC % Seg Neutrophils # Seg Neutrophils # Man Lymphocytes # (Manual) Monocytes # (Manual) Eosinophils # (Manual) Basophils # (Manual) PT INR Fibrinogen dRVVT Confirm Interp Factor V Activity POC ABG pH POC ABG pCO2 POC ABG pO2 ABG pO2 ABG HCO3 ABG Base Excess ABG Hemoglobin Oxyhemoglobin Sodium Potassium Chloride Carbon Dioxide BUN Creatinine Glucose POC Glucose 167 H 125 H 133 H Lactic Acid Calcium Phosphorus Magnesium Direct Bilirubin AST ALT Alkaline Phosphatase Lactate Dehydrogenase Troponin T C-Reactive Protein Total Protein Albumin Prealbumin Triglycerides Cholesterol LDL Cholesterol Direct HDL Cholesterol Urine pH Urine WBC (Auto) Urine Creatinine Urine Total Protein Fluid Total Protein Vancomycin Trough Rheumatoid Factor Complement C4 Miscellaneous Test Crossmatch 12/31/16 01/01/17 01/01/17 23:55 05:00 05:12 WBC RBC Hgb Hct MCV MCH MCHC RDW Plt Count Lymph % (Auto) [place] % (Auto) Lymph # [place] # Baso # Seg Neutrophils % Seg Neuts % (Manual) Lymphocytes % (Manual) Monocytes % (Manual) Eosinophils % (Manual) Basophils % (Manual) Nucleated RBC % Seg Neutrophils # Seg Neutrophils # Man Lymphocytes # (Manual) Monocytes # (Manual) Eosinophils # (Manual) Basophils # (Manual) PT INR Fibrinogen dRVVT Confirm Interp Factor V Activity POC ABG pH POC ABG pCO2 POC ABG pO2 ABG pO2 ABG HCO3 ABG Base Excess ABG Hemoglobin Oxyhemoglobin Sodium Potassium Chloride Carbon Dioxide BUN 76 H Creatinine 1.5 H Glucose 109 H POC Glucose 129 H 129 H Lactic Acid Calcium Phosphorus Magnesium Direct Bilirubin AST ALT Alkaline Phosphatase 536 H Lactate Dehydrogenase Troponin T C-Reactive Protein Total Protein Albumin 1.5 L Prealbumin Triglycerides Cholesterol LDL Cholesterol Direct HDL Cholesterol Urine pH Urine WBC (Auto) Urine Creatinine Urine Total Protein Fluid Total Protein Vancomycin Trough Rheumatoid Factor Complement C4 Miscellaneous Test Crossmatch 01/01/17 01/01/17 01/01/17 12:25 17:01 23:32 WBC RBC Hgb Hct MCV MCH MCHC RDW Plt Count Lymph % (Auto) [place] % (Auto) Lymph # [place] # Baso # Seg Neutrophils % Seg Neuts % (Manual) Lymphocytes % (Manual) Monocytes % (Manual) Eosinophils % (Manual) Basophils % (Manual) Nucleated RBC % Seg Neutrophils # Seg Neutrophils # Man Lymphocytes # (Manual) Monocytes # (Manual) Eosinophils # (Manual) Basophils # (Manual) PT INR Fibrinogen dRVVT Confirm Interp Factor V Activity POC ABG pH POC ABG pCO2 POC ABG pO2 ABG pO2 ABG HCO3 ABG Base Excess ABG Hemoglobin Oxyhemoglobin Sodium Potassium Chloride Carbon Dioxide BUN Creatinine Glucose POC Glucose 140 H 142 H 112 H Lactic Acid Calcium Phosphorus Magnesium Direct Bilirubin AST ALT Alkaline Phosphatase Lactate Dehydrogenase Troponin T C-Reactive Protein Total Protein Albumin Prealbumin Triglycerides Cholesterol LDL Cholesterol Direct HDL Cholesterol Urine pH Urine WBC (Auto) Urine Creatinine Urine Total Protein Fluid Total Protein Vancomycin Trough Rheumatoid Factor Complement C4 Miscellaneous Test Crossmatch 01/02/17 01/02/17 01/02/17 04:56 06:00 11:37 WBC RBC Hgb Hct MCV MCH MCHC RDW Plt Count Lymph % (Auto) [place] % (Auto) Lymph # [place] # Baso # Seg Neutrophils % Seg Neuts % (Manual) Lymphocytes % (Manual) Monocytes % (Manual) Eosinophils % (Manual) Basophils % (Manual) Nucleated RBC % Seg Neutrophils # Seg Neutrophils # Man Lymphocytes # (Manual) Monocytes # (Manual) Eosinophils # (Manual) Basophils # (Manual) PT INR Fibrinogen dRVVT Confirm Interp Factor V Activity POC ABG pH POC ABG pCO2 POC ABG pO2 ABG pO2 ABG HCO3 ABG Base Excess ABG Hemoglobin Oxyhemoglobin Sodium Potassium Chloride Carbon Dioxide BUN 88 H Creatinine 1.7 H Glucose 113 H POC Glucose 136 H 200 H Lactic Acid Calcium Phosphorus Magnesium Direct Bilirubin AST ALT Alkaline Phosphatase Lactate Dehydrogenase Troponin T C-Reactive Protein Total Protein Albumin Prealbumin Triglycerides Cholesterol LDL Cholesterol Direct HDL Cholesterol Urine pH Urine WBC (Auto) Urine Creatinine Urine Total Protein Fluid Total Protein Vancomycin Trough Rheumatoid Factor Complement C4 Miscellaneous Test Crossmatch 01/02/17 01/02/17 01/03/17 17:42 22:52 04:54 WBC RBC Hgb Hct MCV MCH MCHC RDW Plt Count Lymph % (Auto) [place] % (Auto) Lymph # [place] # Baso # Seg Neutrophils % Seg Neuts % (Manual) Lymphocytes % (Manual) Monocytes % (Manual) Eosinophils % (Manual) Basophils % (Manual) Nucleated RBC % Seg Neutrophils # Seg Neutrophils # Man Lymphocytes # (Manual) Monocytes # (Manual) Eosinophils # (Manual) Basophils # (Manual) PT INR Fibrinogen dRVVT Confirm Interp Factor V Activity POC ABG pH POC ABG pCO2 POC ABG pO2 ABG pO2 ABG HCO3 ABG Base Excess ABG Hemoglobin Oxyhemoglobin Sodium Potassium Chloride Carbon Dioxide BUN Creatinine Glucose POC Glucose 112 H 133 H 111 H Lactic Acid Calcium Phosphorus Magnesium Direct Bilirubin AST ALT Alkaline Phosphatase Lactate Dehydrogenase Troponin T C-Reactive Protein Total Protein Albumin Prealbumin Triglycerides Cholesterol LDL Cholesterol Direct HDL Cholesterol Urine pH Urine WBC (Auto) Urine Creatinine Urine Total Protein Fluid Total Protein Vancomycin Trough Rheumatoid Factor Complement C4 Miscellaneous Test Crossmatch 01/03/17 01/03/17 01/03/17 05:00 05:00 14:02 WBC 11.2 H RBC 2.56 L Hgb 7.2 L Hct 22.3 L MCV MCH MCHC RDW 17.3 H Plt Count Lymph % (Auto) [place] % (Auto) 10.0 H Lymph # [place] # 1.1 H Baso # Seg Neutrophils % 70.5 H Seg Neuts % (Manual) Lymphocytes % (Manual) Monocytes % (Manual) Eosinophils % (Manual) Basophils % (Manual) Nucleated RBC % Seg Neutrophils # 7.9 H Seg Neutrophils # Man Lymphocytes # (Manual) Monocytes # (Manual) Eosinophils # (Manual) Basophils # (Manual) PT INR Fibrinogen dRVVT Confirm Interp Factor V Activity POC ABG pH POC ABG pCO2 POC ABG pO2 ABG pO2 ABG HCO3 ABG Base Excess ABG Hemoglobin Oxyhemoglobin Sodium Potassium Chloride Carbon Dioxide BUN 60 H Creatinine 1.3 H Glucose 110 H POC Glucose 119 H Lactic Acid Calcium Phosphorus Magnesium Direct Bilirubin AST ALT Alkaline Phosphatase Lactate Dehydrogenase Troponin T C-Reactive Protein Total Protein Albumin Prealbumin Triglycerides Cholesterol LDL Cholesterol Direct HDL Cholesterol Urine pH Urine WBC (Auto) Urine Creatinine Urine Total Protein Fluid Total Protein Vancomycin Trough Rheumatoid Factor Complement C4 Miscellaneous Test Crossmatch 01/03/17 01/03/17 01/04/17 18:13 23:40 05:57 WBC RBC Hgb Hct MCV MCH MCHC RDW Plt Count Lymph % (Auto) [place] % (Auto) Lymph # [place] # Baso # Seg Neutrophils % Seg Neuts % (Manual) Lymphocytes % (Manual) Monocytes % (Manual) Eosinophils % (Manual) Basophils % (Manual) Nucleated RBC % Seg Neutrophils # Seg Neutrophils # Man Lymphocytes # (Manual) Monocytes # (Manual) Eosinophils # (Manual) Basophils # (Manual) PT INR Fibrinogen dRVVT Confirm Interp Factor V Activity POC ABG pH POC ABG pCO2 POC ABG pO2 ABG pO2 ABG HCO3 ABG Base Excess ABG Hemoglobin Oxyhemoglobin Sodium Potassium Chloride Carbon Dioxide BUN Creatinine Glucose POC Glucose 107 H 129 H 111 H Lactic Acid Calcium Phosphorus Magnesium Direct Bilirubin AST ALT Alkaline Phosphatase Lactate Dehydrogenase Troponin T C-Reactive Protein Total Protein Albumin Prealbumin Triglycerides Cholesterol LDL Cholesterol Direct HDL Cholesterol Urine pH Urine WBC (Auto) Urine Creatinine Urine Total Protein Fluid Total Protein Vancomycin Trough Rheumatoid Factor Complement C4 Miscellaneous Test Crossmatch 01/04/17 01/04/17 01/04/17 12:46 15:27 17:11 WBC RBC Hgb Hct MCV MCH MCHC RDW Plt Count Lymph % (Auto) [place] % (Auto) Lymph # [place] # Baso # Seg Neutrophils % Seg Neuts % (Manual) Lymphocytes % (Manual) Monocytes % (Manual) Eosinophils % (Manual) Basophils % (Manual) Nucleated RBC % Seg Neutrophils # Seg Neutrophils # Man Lymphocytes # (Manual) Monocytes # (Manual) Eosinophils # (Manual) Basophils # (Manual) PT INR Fibrinogen dRVVT Confirm Interp Factor V Activity POC ABG pH POC ABG pCO2 POC ABG pO2 ABG pO2 ABG HCO3 ABG Base Excess ABG Hemoglobin Oxyhemoglobin Sodium Potassium Chloride Carbon Dioxide BUN 43 H Creatinine Glucose 124 H POC Glucose 159 H 125 H Lactic Acid Calcium 8.0 L Phosphorus 2.10 L Magnesium Direct Bilirubin AST ALT Alkaline Phosphatase Lactate Dehydrogenase Troponin T C-Reactive Protein Total Protein Albumin Prealbumin Triglycerides Cholesterol LDL Cholesterol Direct HDL Cholesterol Urine pH Urine WBC (Auto) Urine Creatinine Urine Total Protein Fluid Total Protein Vancomycin Trough Rheumatoid Factor Complement C4 Miscellaneous Test Crossmatch 01/04/17 01/05/17 01/05/17 23:31 04:00 05:46 WBC RBC Hgb Hct MCV MCH MCHC RDW Plt Count Lymph % (Auto) [place] % (Auto) Lymph # [place] # Baso # Seg Neutrophils % Seg Neuts % (Manual) Lymphocytes % (Manual) Monocytes % (Manual) Eosinophils % (Manual) Basophils % (Manual) Nucleated RBC % Seg Neutrophils # Seg Neutrophils # Man Lymphocytes # (Manual) Monocytes # (Manual) Eosinophils # (Manual) Basophils # (Manual) PT INR Fibrinogen dRVVT Confirm Interp Factor V Activity POC ABG pH POC ABG pCO2 POC ABG pO2 ABG pO2 ABG HCO3 ABG Base Excess ABG Hemoglobin Oxyhemoglobin Sodium Potassium Chloride Carbon Dioxide BUN 52 H Creatinine 1.3 H Glucose 113 H POC Glucose 123 H 118 H Lactic Acid Calcium Phosphorus 2.40 L Magnesium Direct Bilirubin AST ALT Alkaline Phosphatase Lactate Dehydrogenase Troponin T C-Reactive Protein Total Protein Albumin Prealbumin Triglycerides Cholesterol LDL Cholesterol Direct HDL Cholesterol Urine pH Urine WBC (Auto) Urine Creatinine Urine Total Protein Fluid Total Protein Vancomycin Trough Rheumatoid Factor Complement C4 Miscellaneous Test Crossmatch 01/05/17 01/05/17 01/05/17 11:41 17:48 23:27 WBC RBC Hgb Hct MCV MCH MCHC RDW Plt Count Lymph % (Auto) [place] % (Auto) Lymph # [place] # Baso # Seg Neutrophils % Seg Neuts % (Manual) Lymphocytes % (Manual) Monocytes % (Manual) Eosinophils % (Manual) Basophils % (Manual) Nucleated RBC % Seg Neutrophils # Seg Neutrophils # Man Lymphocytes # (Manual) Monocytes # (Manual) Eosinophils # (Manual) Basophils # (Manual) PT INR Fibrinogen dRVVT Confirm Interp Factor V Activity POC ABG pH POC ABG pCO2 POC ABG pO2 ABG pO2 ABG HCO3 ABG Base Excess ABG Hemoglobin Oxyhemoglobin Sodium Potassium Chloride Carbon Dioxide BUN Creatinine Glucose POC Glucose 163 H 142 H 155 H Lactic Acid Calcium Phosphorus Magnesium Direct Bilirubin AST ALT Alkaline Phosphatase Lactate Dehydrogenase Troponin T C-Reactive Protein Total Protein Albumin Prealbumin Triglycerides Cholesterol LDL Cholesterol Direct HDL Cholesterol Urine pH Urine WBC (Auto) Urine Creatinine Urine Total Protein Fluid Total Protein Vancomycin Trough Rheumatoid Factor Complement C4 Miscellaneous Test Crossmatch 01/06/17 01/06/17 01/06/17 05:20 07:35 11:18 WBC RBC Hgb Hct MCV MCH MCHC RDW Plt Count Lymph % (Auto) [place] % (Auto) Lymph # [place] # Baso # Seg Neutrophils % Seg Neuts % (Manual) Lymphocytes % (Manual) Monocytes % (Manual) Eosinophils % (Manual) Basophils % (Manual) Nucleated RBC % Seg Neutrophils # Seg Neutrophils # Man Lymphocytes # (Manual) Monocytes # (Manual) Eosinophils # (Manual) Basophils # (Manual) PT INR Fibrinogen dRVVT Confirm Interp Factor V Activity POC ABG pH POC ABG pCO2 POC ABG pO2 ABG pO2 ABG HCO3 ABG Base Excess ABG Hemoglobin Oxyhemoglobin Sodium Potassium Chloride Carbon Dioxide BUN 74 H Creatinine 1.6 H Glucose 135 H POC Glucose 108 H 149 H Lactic Acid Calcium Phosphorus Magnesium Direct Bilirubin AST ALT Alkaline Phosphatase Lactate Dehydrogenase Troponin T C-Reactive Protein Total Protein Albumin Prealbumin Triglycerides Cholesterol LDL Cholesterol Direct HDL Cholesterol Urine pH Urine WBC (Auto) Urine Creatinine Urine Total Protein Fluid Total Protein Vancomycin Trough Rheumatoid Factor Complement C4 Miscellaneous Test Crossmatch 01/06/17 01/07/17 01/07/17 17:17 00:23 05:31 WBC RBC Hgb Hct MCV MCH MCHC RDW Plt Count Lymph % (Auto) [place] % (Auto) Lymph # [place] # Baso # Seg Neutrophils % Seg Neuts % (Manual) Lymphocytes % (Manual) Monocytes % (Manual) Eosinophils % (Manual) Basophils % (Manual) Nucleated RBC % Seg Neutrophils # Seg Neutrophils # Man Lymphocytes # (Manual) Monocytes # (Manual) Eosinophils # (Manual) Basophils # (Manual) PT INR Fibrinogen dRVVT Confirm Interp Factor V Activity POC ABG pH POC ABG pCO2 POC ABG pO2 ABG pO2 ABG HCO3 ABG Base Excess ABG Hemoglobin Oxyhemoglobin Sodium Potassium Chloride Carbon Dioxide BUN Creatinine Glucose POC Glucose 146 H 165 H 153 H Lactic Acid Calcium Phosphorus Magnesium Direct Bilirubin AST ALT Alkaline Phosphatase Lactate Dehydrogenase Troponin T C-Reactive Protein Total Protein Albumin Prealbumin Triglycerides Cholesterol LDL Cholesterol Direct HDL Cholesterol Urine pH Urine WBC (Auto) Urine Creatinine Urine Total Protein Fluid Total Protein Vancomycin Trough Rheumatoid Factor Complement C4 Miscellaneous Test Crossmatch 01/07/17 01/07/17 01/07/17 06:00 11:39 17:11 WBC RBC Hgb Hct MCV MCH MCHC RDW Plt Count Lymph % (Auto) [place] % (Auto) Lymph # [place] # Baso # Seg Neutrophils % Seg Neuts % (Manual) Lymphocytes % (Manual) Monocytes % (Manual) Eosinophils % (Manual) Basophils % (Manual) Nucleated RBC % Seg Neutrophils # Seg Neutrophils # Man Lymphocytes # (Manual) Monocytes # (Manual) Eosinophils # (Manual) Basophils # (Manual) PT INR Fibrinogen dRVVT Confirm Interp Factor V Activity POC ABG pH POC ABG pCO2 POC ABG pO2 ABG pO2 ABG HCO3 ABG Base Excess ABG Hemoglobin Oxyhemoglobin Sodium Potassium Chloride Carbon Dioxide BUN 42 H Creatinine Glucose 175 H POC Glucose 163 H 163 H Lactic Acid Calcium Phosphorus 2.40 L D Magnesium Direct Bilirubin AST ALT Alkaline Phosphatase Lactate Dehydrogenase Troponin T C-Reactive Protein Total Protein Albumin Prealbumin Triglycerides Cholesterol LDL Cholesterol Direct HDL Cholesterol Urine pH Urine WBC (Auto) Urine Creatinine Urine Total Protein Fluid Total Protein Vancomycin Trough Rheumatoid Factor Complement C4 Miscellaneous Test Crossmatch 01/07/17 01/08/17 01/08/17 23:40 05:00 05:00 WBC 27.4 H RBC 2.27 L Hgb 6.1 L Hct 20.4 L MCV MCH 27 L MCHC RDW 17.8 H Plt Count Lymph % (Auto) [place] % (Auto) Lymph # [place] # Baso # Seg Neutrophils % Seg Neuts % (Manual) Lymphocytes % (Manual) Monocytes % (Manual) Eosinophils % (Manual) Basophils % (Manual) Nucleated RBC % Seg Neutrophils # Seg Neutrophils # Man Lymphocytes # (Manual) Monocytes # (Manual) Eosinophils # (Manual) Basophils # (Manual) PT INR Fibrinogen dRVVT Confirm Interp Factor V Activity POC ABG pH POC ABG pCO2 POC ABG pO2 ABG pO2 ABG HCO3 ABG Base Excess ABG Hemoglobin Oxyhemoglobin Sodium Potassium Chloride Carbon Dioxide 16 L D BUN 62 H Creatinine 1.6 H D Glucose 103 H POC Glucose 135 H Lactic Acid Calcium Phosphorus Magnesium Direct Bilirubin AST ALT Alkaline Phosphatase Lactate Dehydrogenase Troponin T C-Reactive Protein Total Protein Albumin Prealbumin Triglycerides Cholesterol LDL Cholesterol Direct HDL Cholesterol Urine pH Urine WBC (Auto) Urine Creatinine Urine Total Protein Fluid Total Protein Vancomycin Trough Rheumatoid Factor Complement C4 Miscellaneous Test Crossmatch 01/08/17 01/08/17 01/08/17 05:25 10:37 10:37 WBC RBC Hgb Hct MCV MCH MCHC RDW Plt Count Lymph % (Auto) [place] % (Auto) Lymph # [place] # Baso # Seg Neutrophils % Seg Neuts % (Manual) Lymphocytes % (Manual) Monocytes % (Manual) Eosinophils % (Manual) Basophils % (Manual) Nucleated RBC % Seg Neutrophils # Seg Neutrophils # Man Lymphocytes # (Manual) Monocytes # (Manual) Eosinophils # (Manual) Basophils # (Manual) PT INR Fibrinogen dRVVT Confirm Interp Factor V Activity POC ABG pH POC ABG pCO2 POC ABG pO2 ABG pO2 ABG HCO3 ABG Base Excess ABG Hemoglobin Oxyhemoglobin Sodium Potassium Chloride Carbon Dioxide BUN Creatinine Glucose POC Glucose 106 H Lactic Acid Calcium Phosphorus Magnesium Direct Bilirubin AST ALT Alkaline Phosphatase Lactate Dehydrogenase Troponin T C-Reactive Protein 24.40 H Total Protein Albumin Prealbumin Triglycerides Cholesterol LDL Cholesterol Direct HDL Cholesterol Urine pH Urine WBC (Auto) Urine Creatinine Urine Total Protein Fluid Total Protein Vancomycin Trough Rheumatoid Factor Complement C4 Miscellaneous Test Crossmatch See Detail 01/08/17 01/08/17 01/08/17 10:37 11:33 15:15 WBC RBC Hgb Hct MCV MCH MCHC RDW Plt Count Lymph % (Auto) [place] % (Auto) Lymph # [place] # Baso # Seg Neutrophils % Seg Neuts % (Manual) Lymphocytes % (Manual) Monocytes % (Manual) Eosinophils % (Manual) Basophils % (Manual) Nucleated RBC % Seg Neutrophils # Seg Neutrophils # Man Lymphocytes # (Manual) Monocytes # (Manual) Eosinophils # (Manual) Basophils # (Manual) PT INR Fibrinogen dRVVT Confirm Interp Factor V Activity POC ABG pH POC ABG pCO2 POC ABG pO2 ABG pO2 ABG HCO3 ABG Base Excess ABG Hemoglobin Oxyhemoglobin Sodium Potassium Chloride Carbon Dioxide BUN Creatinine Glucose POC Glucose 157 H Lactic Acid 9.70 H* 9.10 H* Calcium Phosphorus Magnesium Direct Bilirubin AST ALT Alkaline Phosphatase Lactate Dehydrogenase Troponin T C-Reactive Protein Total Protein Albumin Prealbumin Triglycerides Cholesterol LDL Cholesterol Direct HDL Cholesterol Urine pH Urine WBC (Auto) Urine Creatinine Urine Total Protein Fluid Total Protein Vancomycin Trough Rheumatoid Factor Complement C4 Miscellaneous Test Crossmatch 01/08/17 01/08/17 01/09/17 17:19 23:12 04:40 WBC RBC Hgb Hct MCV MCH MCHC RDW Plt Count Lymph % (Auto) [place] % (Auto) Lymph # [place] # Baso # Seg Neutrophils % Seg Neuts % (Manual) Lymphocytes % (Manual) Monocytes % (Manual) Eosinophils % (Manual) Basophils % (Manual) Nucleated RBC % Seg Neutrophils # Seg Neutrophils # Man Lymphocytes # (Manual) Monocytes # (Manual) Eosinophils # (Manual) Basophils # (Manual) PT INR Fibrinogen dRVVT Confirm Interp Factor V Activity POC ABG pH POC ABG pCO2 POC ABG pO2 ABG pO2 ABG HCO3 ABG Base Excess ABG Hemoglobin Oxyhemoglobin Sodium 147 H Potassium Chloride Carbon Dioxide BUN 82 H Creatinine 1.8 H Glucose 137 H POC Glucose 164 H 157 H Lactic Acid Calcium Phosphorus Magnesium Direct Bilirubin AST ALT Alkaline Phosphatase Lactate Dehydrogenase Troponin T C-Reactive Protein Total Protein Albumin Prealbumin Triglycerides Cholesterol LDL Cholesterol Direct HDL Cholesterol Urine pH Urine WBC (Auto) Urine Creatinine Urine Total Protein Fluid Total Protein Vancomycin Trough Rheumatoid Factor Complement C4 Miscellaneous Test Crossmatch 01/09/17 01/09/17 01/09/17 05:42 08:22 10:57 WBC RBC Hgb Hct MCV MCH MCHC RDW Plt Count Lymph % (Auto) [place] % (Auto) Lymph # [place] # Baso # Seg Neutrophils % Seg Neuts % (Manual) Lymphocytes % (Manual) Monocytes % (Manual) Eosinophils % (Manual) Basophils % (Manual) Nucleated RBC % Seg Neutrophils # Seg Neutrophils # Man Lymphocytes # (Manual) Monocytes # (Manual) Eosinophils # (Manual) Basophils # (Manual) PT INR Fibrinogen dRVVT Confirm Interp Factor V Activity POC ABG pH POC ABG pCO2 POC ABG pO2 ABG pO2 ABG HCO3 ABG Base Excess ABG Hemoglobin Oxyhemoglobin Sodium Potassium Chloride Carbon Dioxide BUN Creatinine Glucose POC Glucose 156 H 122 H Lactic Acid 2.30 H* Calcium Phosphorus Magnesium Direct Bilirubin AST ALT Alkaline Phosphatase Lactate Dehydrogenase Troponin T C-Reactive Protein Total Protein Albumin Prealbumin Triglycerides Cholesterol LDL Cholesterol Direct HDL Cholesterol Urine pH Urine WBC (Auto) Urine Creatinine Urine Total Protein Fluid Total Protein Vancomycin Trough Rheumatoid Factor Complement C4 Miscellaneous Test Crossmatch 01/09/17 01/09/17 01/09/17 13:30 17:14 18:45 WBC RBC Hgb Hct MCV MCH MCHC RDW Plt Count Lymph % (Auto) [place] % (Auto) Lymph # [place] # Baso # Seg Neutrophils % Seg Neuts % (Manual) Lymphocytes % (Manual) Monocytes % (Manual) Eosinophils % (Manual) Basophils % (Manual) Nucleated RBC % Seg Neutrophils # Seg Neutrophils # Man Lymphocytes # (Manual) Monocytes # (Manual) Eosinophils # (Manual) Basophils # (Manual) PT INR Fibrinogen dRVVT Confirm Interp Factor V Activity POC ABG pH POC ABG pCO2 POC ABG pO2 ABG pO2 ABG HCO3 ABG Base Excess ABG Hemoglobin Oxyhemoglobin Sodium Potassium Chloride Carbon Dioxide BUN Creatinine Glucose POC Glucose 127 H Lactic Acid Calcium Phosphorus Magnesium Direct Bilirubin AST ALT Alkaline Phosphatase Lactate Dehydrogenase Troponin T C-Reactive Protein 24.70 H Total Protein Albumin Prealbumin Triglycerides Cholesterol LDL Cholesterol Direct HDL Cholesterol Urine pH Urine WBC (Auto) Urine Creatinine Urine Total Protein Fluid Total Protein Vancomycin Trough Rheumatoid Factor Complement C4 Miscellaneous Test Flexitest 1 H Crossmatch 01/10/17 01/10/17 01/10/17 01:21 04:00 04:00 WBC 18.1 H RBC 3.22 L Hgb 8.8 L Hct 27.0 L D MCV MCH 27 L MCHC RDW 17.0 H Plt Count Lymph % (Auto) [place] % (Auto) Lymph # [place] # Baso # Seg Neutrophils % Seg Neuts % (Manual) Lymphocytes % (Manual) Monocytes % (Manual) Eosinophils % (Manual) Basophils % (Manual) Nucleated RBC % Seg Neutrophils # Seg Neutrophils # Man Lymphocytes # (Manual) Monocytes # (Manual) Eosinophils # (Manual) Basophils # (Manual) PT INR Fibrinogen dRVVT Confirm Interp Factor V Activity POC ABG pH POC ABG pCO2 POC ABG pO2 ABG pO2 ABG HCO3 ABG Base Excess ABG Hemoglobin Oxyhemoglobin Sodium Potassium Chloride Carbon Dioxide BUN 59 H Creatinine 1.3 H Glucose 122 H POC Glucose 160 H Lactic Acid Calcium Phosphorus Magnesium Direct Bilirubin AST ALT Alkaline Phosphatase Lactate Dehydrogenase Troponin T C-Reactive Protein Total Protein Albumin Prealbumin Triglycerides Cholesterol LDL Cholesterol Direct HDL Cholesterol Urine pH Urine WBC (Auto) Urine Creatinine Urine Total Protein Fluid Total Protein Vancomycin Trough Rheumatoid Factor Complement C4 Miscellaneous Test Crossmatch 01/10/17 01/10/17 01/10/17 05:36 12:14 17:55 WBC RBC Hgb Hct MCV MCH MCHC RDW Plt Count Lymph % (Auto) [place] % (Auto) Lymph # [place] # Baso # Seg Neutrophils % Seg Neuts % (Manual) Lymphocytes % (Manual) Monocytes % (Manual) Eosinophils % (Manual) Basophils % (Manual) Nucleated RBC % Seg Neutrophils # Seg Neutrophils # Man Lymphocytes # (Manual) Monocytes # (Manual) Eosinophils # (Manual) Basophils # (Manual) PT INR Fibrinogen dRVVT Confirm Interp Factor V Activity POC ABG pH POC ABG pCO2 POC ABG pO2 ABG pO2 ABG HCO3 ABG Base Excess ABG Hemoglobin Oxyhemoglobin Sodium Potassium Chloride Carbon Dioxide BUN Creatinine Glucose POC Glucose 163 H 120 H 144 H Lactic Acid Calcium Phosphorus Magnesium Direct Bilirubin AST ALT Alkaline Phosphatase Lactate Dehydrogenase Troponin T C-Reactive Protein Total Protein Albumin Prealbumin Triglycerides Cholesterol LDL Cholesterol Direct HDL Cholesterol Urine pH Urine WBC (Auto) Urine Creatinine Urine Total Protein Fluid Total Protein Vancomycin Trough Rheumatoid Factor Complement C4 Miscellaneous Test Crossmatch 01/11/17 01/11/17 01/11/17 00:09 04:00 04:00 WBC 15.8 H RBC 3.04 L Hgb 8.2 L Hct 25.5 L MCV MCH 27 L MCHC RDW 17.3 H Plt Count Lymph % (Auto) [place] % (Auto) Lymph # [place] # Baso # Seg Neutrophils % Seg Neuts % (Manual) Lymphocytes % (Manual) Monocytes % (Manual) Eosinophils % (Manual) Basophils % (Manual) Nucleated RBC % Seg Neutrophils # Seg Neutrophils # Man Lymphocytes # (Manual) Monocytes # (Manual) Eosinophils # (Manual) Basophils # (Manual) PT INR Fibrinogen dRVVT Confirm Interp Factor V Activity POC ABG pH POC ABG pCO2 POC ABG pO2 ABG pO2 ABG HCO3 ABG Base Excess ABG Hemoglobin Oxyhemoglobin Sodium Potassium Chloride Carbon Dioxide BUN 78 H Creatinine 1.6 H Glucose 109 H POC Glucose 122 H Lactic Acid Calcium Phosphorus Magnesium Direct Bilirubin AST ALT Alkaline Phosphatase Lactate Dehydrogenase Troponin T C-Reactive Protein Total Protein Albumin Prealbumin Triglycerides Cholesterol LDL Cholesterol Direct HDL Cholesterol Urine pH Urine WBC (Auto) Urine Creatinine Urine Total Protein Fluid Total Protein Vancomycin Trough Rheumatoid Factor Complement C4 Miscellaneous Test Crossmatch 01/11/17 01/11/17 01/11/17 12:46 18:23 23:42 WBC RBC Hgb Hct MCV MCH MCHC RDW Plt Count Lymph % (Auto) [place] % (Auto) Lymph # [place] # Baso # Seg Neutrophils % Seg Neuts % (Manual) Lymphocytes % (Manual) Monocytes % (Manual) Eosinophils % (Manual) Basophils % (Manual) Nucleated RBC % Seg Neutrophils # Seg Neutrophils # Man Lymphocytes # (Manual) Monocytes # (Manual) Eosinophils # (Manual) Basophils # (Manual) PT INR Fibrinogen dRVVT Confirm Interp Factor V Activity POC ABG pH POC ABG pCO2 POC ABG pO2 ABG pO2 ABG HCO3 ABG Base Excess ABG Hemoglobin Oxyhemoglobin Sodium Potassium Chloride Carbon Dioxide BUN Creatinine Glucose POC Glucose 148 H 125 H 124 H Lactic Acid Calcium Phosphorus Magnesium Direct Bilirubin AST ALT Alkaline Phosphatase Lactate Dehydrogenase Troponin T C-Reactive Protein Total Protein Albumin Prealbumin Triglycerides Cholesterol LDL Cholesterol Direct HDL Cholesterol Urine pH Urine WBC (Auto) Urine Creatinine Urine Total Protein Fluid Total Protein Vancomycin Trough Rheumatoid Factor Complement C4 Miscellaneous Test Crossmatch 01/12/17 01/12/17 01/12/17 04:30 04:30 05:47 WBC 15.8 H RBC 3.31 L Hgb 8.9 L Hct 27.9 L MCV MCH 27 L MCHC RDW 17.4 H Plt Count Lymph % (Auto) [place] % (Auto) Lymph # [place] # Baso # Seg Neutrophils % Seg Neuts % (Manual) Lymphocytes % (Manual) Monocytes % (Manual) Eosinophils % (Manual) Basophils % (Manual) Nucleated RBC % Seg Neutrophils # Seg Neutrophils # Man Lymphocytes # (Manual) Monocytes # (Manual) Eosinophils # (Manual) Basophils # (Manual) PT INR Fibrinogen dRVVT Confirm Interp Factor V Activity POC ABG pH POC ABG pCO2 POC ABG pO2 ABG pO2 ABG HCO3 ABG Base Excess ABG Hemoglobin Oxyhemoglobin Sodium Potassium Chloride Carbon Dioxide BUN 57 H Creatinine Glucose 121 H POC Glucose 110 H Lactic Acid Calcium Phosphorus 2.10 L Magnesium Direct Bilirubin AST ALT Alkaline Phosphatase Lactate Dehydrogenase Troponin T C-Reactive Protein Total Protein Albumin Prealbumin Triglycerides Cholesterol LDL Cholesterol Direct HDL Cholesterol Urine pH Urine WBC (Auto) Urine Creatinine Urine Total Protein Fluid Total Protein Vancomycin Trough Rheumatoid Factor Complement C4 Miscellaneous Test Crossmatch 01/12/17 01/12/17 01/12/17 11:35 17:45 23:14 WBC RBC Hgb Hct MCV MCH MCHC RDW Plt Count Lymph % (Auto) [place] % (Auto) Lymph # [place] # Baso # Seg Neutrophils % Seg Neuts % (Manual) Lymphocytes % (Manual) Monocytes % (Manual) Eosinophils % (Manual) Basophils % (Manual) Nucleated RBC % Seg Neutrophils # Seg Neutrophils # Man Lymphocytes # (Manual) Monocytes # (Manual) Eosinophils # (Manual) Basophils # (Manual) PT INR Fibrinogen dRVVT Confirm Interp Factor V Activity POC ABG pH POC ABG pCO2 POC ABG pO2 ABG pO2 ABG HCO3 ABG Base Excess ABG Hemoglobin Oxyhemoglobin Sodium Potassium Chloride Carbon Dioxide BUN Creatinine Glucose POC Glucose 146 H 117 H 123 H Lactic Acid Calcium Phosphorus Magnesium Direct Bilirubin AST ALT Alkaline Phosphatase Lactate Dehydrogenase Troponin T C-Reactive Protein Total Protein Albumin Prealbumin Triglycerides Cholesterol LDL Cholesterol Direct HDL Cholesterol Urine pH Urine WBC (Auto) Urine Creatinine Urine Total Protein Fluid Total Protein Vancomycin Trough Rheumatoid Factor Complement C4 Miscellaneous Test Crossmatch 01/13/17 01/13/17 01/13/17 05:32 06:00 12:10 WBC RBC Hgb Hct MCV MCH MCHC RDW Plt Count Lymph % (Auto) [place] % (Auto) Lymph # [place] # Baso # Seg Neutrophils % Seg Neuts % (Manual) Lymphocytes % (Manual) Monocytes % (Manual) Eosinophils % (Manual) Basophils % (Manual) Nucleated RBC % Seg Neutrophils # Seg Neutrophils # Man Lymphocytes # (Manual) Monocytes # (Manual) Eosinophils # (Manual) Basophils # (Manual) PT INR Fibrinogen dRVVT Confirm Interp Factor V Activity POC ABG pH POC ABG pCO2 POC ABG pO2 ABG pO2 ABG HCO3 ABG Base Excess ABG Hemoglobin Oxyhemoglobin Sodium Potassium Chloride Carbon Dioxide BUN 80 H Creatinine 1.4 H Glucose 106 H POC Glucose 106 H Lactic Acid Calcium Phosphorus Magnesium Direct Bilirubin AST ALT Alkaline Phosphatase Lactate Dehydrogenase Troponin T C-Reactive Protein Total Protein Albumin Prealbumin Triglycerides Cholesterol LDL Cholesterol Direct HDL Cholesterol Urine pH Urine WBC (Auto) Urine Creatinine Urine Total Protein Fluid Total Protein 3.0 L Vancomycin Trough Rheumatoid Factor Complement C4 Miscellaneous Test Crossmatch 01/13/17 01/13/17 01/13/17 12:17 15:50 17:30 WBC RBC Hgb Hct MCV MCH MCHC RDW Plt Count Lymph % (Auto) [place] % (Auto) Lymph # [place] # Baso # Seg Neutrophils % Seg Neuts % (Manual) Lymphocytes % (Manual) Monocytes % (Manual) Eosinophils % (Manual) Basophils % (Manual) Nucleated RBC % Seg Neutrophils # Seg Neutrophils # Man Lymphocytes # (Manual) Monocytes # (Manual) Eosinophils # (Manual) Basophils # (Manual) PT 15.4 H INR 1.16 H Fibrinogen dRVVT Confirm Interp Factor V Activity POC ABG pH POC ABG pCO2 POC ABG pO2 ABG pO2 ABG HCO3 ABG Base Excess ABG Hemoglobin Oxyhemoglobin Sodium Potassium Chloride Carbon Dioxide BUN Creatinine Glucose POC Glucose 168 H 110 H Lactic Acid Calcium Phosphorus Magnesium Direct Bilirubin AST ALT Alkaline Phosphatase Lactate Dehydrogenase Troponin T C-Reactive Protein Total Protein Albumin Prealbumin Triglycerides Cholesterol LDL Cholesterol Direct HDL Cholesterol Urine pH Urine WBC (Auto) Urine Creatinine Urine Total Protein Fluid Total Protein Vancomycin Trough Rheumatoid Factor Complement C4 Miscellaneous Test Crossmatch 01/13/17 01/14/17 01/14/17 23:42 05:24 05:30 WBC RBC Hgb Hct MCV MCH MCHC RDW Plt Count Lymph % (Auto) [place] % (Auto) Lymph # [place] # Baso # Seg Neutrophils % Seg Neuts % (Manual) Lymphocytes % (Manual) Monocytes % (Manual) Eosinophils % (Manual) Basophils % (Manual) Nucleated RBC % Seg Neutrophils # Seg Neutrophils # Man Lymphocytes # (Manual) Monocytes # (Manual) Eosinophils # (Manual) Basophils # (Manual) PT INR Fibrinogen dRVVT Confirm Interp Factor V Activity POC ABG pH POC ABG pCO2 POC ABG pO2 ABG pO2 ABG HCO3 ABG Base Excess ABG Hemoglobin Oxyhemoglobin Sodium Potassium Chloride Carbon Dioxide BUN 58 H Creatinine Glucose 114 H POC Glucose 155 H 121 H Lactic Acid Calcium Phosphorus Magnesium Direct Bilirubin AST ALT Alkaline Phosphatase Lactate Dehydrogenase Troponin T C-Reactive Protein Total Protein Albumin Prealbumin Triglycerides Cholesterol LDL Cholesterol Direct HDL Cholesterol Urine pH Urine WBC (Auto) Urine Creatinine Urine Total Protein Fluid Total Protein Vancomycin Trough Rheumatoid Factor Complement C4 Miscellaneous Test Crossmatch 01/14/17 01/14/17 01/15/17 12:48 17:36 00:15 WBC RBC Hgb Hct MCV MCH MCHC RDW Plt Count Lymph % (Auto) [place] % (Auto) Lymph # [place] # Baso # Seg Neutrophils % Seg Neuts % (Manual) Lymphocytes % (Manual) Monocytes % (Manual) Eosinophils % (Manual) Basophils % (Manual) Nucleated RBC % Seg Neutrophils # Seg Neutrophils # Man Lymphocytes # (Manual) Monocytes # (Manual) Eosinophils # (Manual) Basophils # (Manual) PT INR Fibrinogen dRVVT Confirm Interp Factor V Activity POC ABG pH POC ABG pCO2 POC ABG pO2 ABG pO2 ABG HCO3 ABG Base Excess ABG Hemoglobin Oxyhemoglobin Sodium Potassium Chloride Carbon Dioxide BUN Creatinine Glucose POC Glucose 130 H 135 H 132 H Lactic Acid Calcium Phosphorus Magnesium Direct Bilirubin AST ALT Alkaline Phosphatase Lactate Dehydrogenase Troponin T C-Reactive Protein Total Protein Albumin Prealbumin Triglycerides Cholesterol LDL Cholesterol Direct HDL Cholesterol Urine pH Urine WBC (Auto) Urine Creatinine Urine Total Protein Fluid Total Protein Vancomycin Trough Rheumatoid Factor Complement C4 Miscellaneous Test Crossmatch 01/15/17 01/15/17 01/15/17 05:01 11:55 12:45 WBC 16.2 H RBC 3.00 L Hgb 8.1 L Hct 25.4 L MCV MCH 27 L MCHC RDW 17.6 H Plt Count Lymph % (Auto) 11.7 L [place] % (Auto) 7.8 H Lymph # [place] # 1.3 H Baso # Seg Neutrophils % 80.1 H Seg Neuts % (Manual) Lymphocytes % (Manual) Monocytes % (Manual) Eosinophils % (Manual) Basophils % (Manual) Nucleated RBC % Seg Neutrophils # 13.0 H Seg Neutrophils # Man Lymphocytes # (Manual) Monocytes # (Manual) Eosinophils # (Manual) Basophils # (Manual) PT INR Fibrinogen dRVVT Confirm Interp Factor V Activity POC ABG pH POC ABG pCO2 POC ABG pO2 ABG pO2 ABG HCO3 ABG Base Excess ABG Hemoglobin Oxyhemoglobin Sodium Potassium Chloride Carbon Dioxide BUN Creatinine Glucose POC Glucose 126 H 125 H Lactic Acid Calcium Phosphorus Magnesium Direct Bilirubin AST ALT Alkaline Phosphatase Lactate Dehydrogenase Troponin T C-Reactive Protein Total Protein Albumin Prealbumin Triglycerides Cholesterol LDL Cholesterol Direct HDL Cholesterol Urine pH Urine WBC (Auto) Urine Creatinine Urine Total Protein Fluid Total Protein Vancomycin Trough Rheumatoid Factor Complement C4 Miscellaneous Test Crossmatch 01/15/17 01/15/17 01/15/17 12:45 17:31 23:39 WBC RBC Hgb Hct MCV MCH MCHC RDW Plt Count Lymph % (Auto) [place] % (Auto) Lymph # [place] # Baso # Seg Neutrophils % Seg Neuts % (Manual) Lymphocytes % (Manual) Monocytes % (Manual) Eosinophils % (Manual) Basophils % (Manual) Nucleated RBC % Seg Neutrophils # Seg Neutrophils # Man Lymphocytes # (Manual) Monocytes # (Manual) Eosinophils # (Manual) Basophils # (Manual) PT INR Fibrinogen dRVVT Confirm Interp Factor V Activity POC ABG pH POC ABG pCO2 POC ABG pO2 ABG pO2 ABG HCO3 ABG Base Excess ABG Hemoglobin Oxyhemoglobin Sodium 136 L Potassium Chloride Carbon Dioxide BUN 87 H Creatinine 1.7 H Glucose 108 H POC Glucose 129 H 112 H Lactic Acid Calcium Phosphorus Magnesium Direct Bilirubin AST ALT Alkaline Phosphatase Lactate Dehydrogenase Troponin T C-Reactive Protein Total Protein Albumin Prealbumin Triglycerides Cholesterol LDL Cholesterol Direct HDL Cholesterol Urine pH Urine WBC (Auto) Urine Creatinine Urine Total Protein Fluid Total Protein Vancomycin Trough Rheumatoid Factor Complement C4 Miscellaneous Test Crossmatch 01/16/17 01/16/17 01/16/17 05:23 11:42 12:32 WBC RBC Hgb Hct MCV MCH MCHC RDW Plt Count Lymph % (Auto) [place] % (Auto) Lymph # [place] # Baso # Seg Neutrophils % Seg Neuts % (Manual) Lymphocytes % (Manual) Monocytes % (Manual) Eosinophils % (Manual) Basophils % (Manual) Nucleated RBC % Seg Neutrophils # Seg Neutrophils # Man Lymphocytes # (Manual) Monocytes # (Manual) Eosinophils # (Manual) Basophils # (Manual) PT INR Fibrinogen dRVVT Confirm Interp Factor V Activity POC ABG pH 7.499 H POC ABG pCO2 30.9 L POC ABG pO2 51 L ABG pO2 ABG HCO3 ABG Base Excess ABG Hemoglobin Oxyhemoglobin Sodium Potassium Chloride Carbon Dioxide BUN Creatinine Glucose POC Glucose 118 H 133 H Lactic Acid Calcium Phosphorus Magnesium Direct Bilirubin AST ALT Alkaline Phosphatase Lactate Dehydrogenase Troponin T C-Reactive Protein Total Protein Albumin Prealbumin Triglycerides Cholesterol LDL Cholesterol Direct HDL Cholesterol Urine pH Urine WBC (Auto) Urine Creatinine Urine Total Protein Fluid Total Protein Vancomycin Trough Rheumatoid Factor Complement C4 Miscellaneous Test Crossmatch 01/16/17 01/16/17 01/16/17 17:52 23:57 Unknown WBC RBC Hgb Hct MCV MCH MCHC RDW Plt Count Lymph % (Auto) [place] % (Auto) Lymph # [place] # Baso # Seg Neutrophils % Seg Neuts % (Manual) Lymphocytes % (Manual) Monocytes % (Manual) Eosinophils % (Manual) Basophils % (Manual) Nucleated RBC % Seg Neutrophils # Seg Neutrophils # Man Lymphocytes # (Manual) Monocytes # (Manual) Eosinophils # (Manual) Basophils # (Manual) PT INR Fibrinogen dRVVT Confirm Interp Factor V Activity POC ABG pH POC ABG pCO2 POC ABG pO2 ABG pO2 ABG HCO3 ABG Base Excess ABG Hemoglobin Oxyhemoglobin Sodium 135 L Potassium Chloride Carbon Dioxide BUN 101 H Creatinine 1.8 H Glucose 117 H POC Glucose 130 H 143 H Lactic Acid Calcium Phosphorus 5.80 H Magnesium Direct Bilirubin AST ALT Alkaline Phosphatase Lactate Dehydrogenase Troponin T C-Reactive Protein Total Protein Albumin Prealbumin Triglycerides Cholesterol LDL Cholesterol Direct HDL Cholesterol Urine pH Urine WBC (Auto) Urine Creatinine Urine Total Protein Fluid Total Protein Vancomycin Trough Rheumatoid Factor Complement C4 Miscellaneous Test Crossmatch 01/17/17 01/17/17 01/17/17 05:30 05:46 11:49 WBC RBC Hgb Hct MCV MCH MCHC RDW Plt Count Lymph % (Auto) [place] % (Auto) Lymph # [place] # Baso # Seg Neutrophils % Seg Neuts % (Manual) Lymphocytes % (Manual) Monocytes % (Manual) Eosinophils % (Manual) Basophils % (Manual) Nucleated RBC % Seg Neutrophils # Seg Neutrophils # Man Lymphocytes # (Manual) Monocytes # (Manual) Eosinophils # (Manual) Basophils # (Manual) PT INR Fibrinogen dRVVT Confirm Interp Factor V Activity POC ABG pH POC ABG pCO2 POC ABG pO2 ABG pO2 ABG HCO3 ABG Base Excess ABG Hemoglobin Oxyhemoglobin Sodium 134 L Potassium Chloride 95.8 L Carbon Dioxide BUN 66 H Creatinine 1.3 H Glucose 138 H POC Glucose 147 H 124 H Lactic Acid Calcium Phosphorus Magnesium Direct Bilirubin AST ALT Alkaline Phosphatase 254 H Lactate Dehydrogenase Troponin T C-Reactive Protein Total Protein Albumin 1.3 L Prealbumin Triglycerides Cholesterol LDL Cholesterol Direct HDL Cholesterol Urine pH Urine WBC (Auto) Urine Creatinine Urine Total Protein Fluid Total Protein Vancomycin Trough Rheumatoid Factor Complement C4 Miscellaneous Test Crossmatch 01/17/17 01/17/17 01/18/17 17:30 23:41 05:15 WBC RBC Hgb Hct MCV MCH MCHC RDW Plt Count Lymph % (Auto) [place] % (Auto) Lymph # [place] # Baso # Seg Neutrophils % Seg Neuts % (Manual) Lymphocytes % (Manual) Monocytes % (Manual) Eosinophils % (Manual) Basophils % (Manual) Nucleated RBC % Seg Neutrophils # Seg Neutrophils # Man Lymphocytes # (Manual) Monocytes # (Manual) Eosinophils # (Manual) Basophils # (Manual) PT INR Fibrinogen dRVVT Confirm Interp Factor V Activity POC ABG pH POC ABG pCO2 POC ABG pO2 ABG pO2 ABG HCO3 ABG Base Excess ABG Hemoglobin Oxyhemoglobin Sodium Potassium Chloride Carbon Dioxide BUN 89 H Creatinine 1.7 H Glucose 118 H POC Glucose 137 H 119 H Lactic Acid Calcium Phosphorus Magnesium Direct Bilirubin AST ALT Alkaline Phosphatase Lactate Dehydrogenase Troponin T C-Reactive Protein Total Protein Albumin Prealbumin Triglycerides Cholesterol LDL Cholesterol Direct HDL Cholesterol Urine pH Urine WBC (Auto) Urine Creatinine Urine Total Protein Fluid Total Protein Vancomycin Trough Rheumatoid Factor Complement C4 Miscellaneous Test Crossmatch 01/18/17 01/18/17 01/18/17 05:19 12:16 18:11 WBC RBC Hgb Hct MCV MCH MCHC RDW Plt Count Lymph % (Auto) [place] % (Auto) Lymph # [place] # Baso # Seg Neutrophils % Seg Neuts % (Manual) Lymphocytes % (Manual) Monocytes % (Manual) Eosinophils % (Manual) Basophils % (Manual) Nucleated RBC % Seg Neutrophils # Seg Neutrophils # Man Lymphocytes # (Manual) Monocytes # (Manual) Eosinophils # (Manual) Basophils # (Manual) PT INR Fibrinogen dRVVT Confirm Interp Factor V Activity POC ABG pH POC ABG pCO2 POC ABG pO2 ABG pO2 ABG HCO3 ABG Base Excess ABG Hemoglobin Oxyhemoglobin Sodium Potassium Chloride Carbon Dioxide BUN Creatinine Glucose POC Glucose 134 H 188 H 113 H Lactic Acid Calcium Phosphorus Magnesium Direct Bilirubin AST ALT Alkaline Phosphatase Lactate Dehydrogenase Troponin T C-Reactive Protein Total Protein Albumin Prealbumin Triglycerides Cholesterol LDL Cholesterol Direct HDL Cholesterol Urine pH Urine WBC (Auto) Urine Creatinine Urine Total Protein Fluid Total Protein Vancomycin Trough Rheumatoid Factor Complement C4 Miscellaneous Test Crossmatch 01/19/17 01/19/17 01/19/17 00:00 05:30 05:36 WBC RBC Hgb Hct MCV MCH MCHC RDW Plt Count Lymph % (Auto) [place] % (Auto) Lymph # [place] # Baso # Seg Neutrophils % Seg Neuts % (Manual) Lymphocytes % (Manual) Monocytes % (Manual) Eosinophils % (Manual) Basophils % (Manual) Nucleated RBC % Seg Neutrophils # Seg Neutrophils # Man Lymphocytes # (Manual) Monocytes # (Manual) Eosinophils # (Manual) Basophils # (Manual) PT INR Fibrinogen dRVVT Confirm Interp Factor V Activity POC ABG pH POC ABG pCO2 POC ABG pO2 ABG pO2 ABG HCO3 ABG Base Excess ABG Hemoglobin Oxyhemoglobin Sodium Potassium Chloride Carbon Dioxide BUN 70 H Creatinine 1.5 H Glucose 121 H POC Glucose 137 H 155 H Lactic Acid Calcium Phosphorus 2.10 L D Magnesium Direct Bilirubin AST ALT Alkaline Phosphatase Lactate Dehydrogenase Troponin T C-Reactive Protein Total Protein Albumin Prealbumin Triglycerides Cholesterol LDL Cholesterol Direct HDL Cholesterol Urine pH Urine WBC (Auto) Urine Creatinine Urine Total Protein Fluid Total Protein Vancomycin Trough Rheumatoid Factor Complement C4 Miscellaneous Test Crossmatch 01/19/17 01/19/17 01/19/17 11:59 15:32 17:57 WBC RBC Hgb Hct MCV MCH MCHC RDW Plt Count Lymph % (Auto) [place] % (Auto) Lymph # [place] # Baso # Seg Neutrophils % Seg Neuts % (Manual) Lymphocytes % (Manual) Monocytes % (Manual) Eosinophils % (Manual) Basophils % (Manual) Nucleated RBC % Seg Neutrophils # Seg Neutrophils # Man Lymphocytes # (Manual) Monocytes # (Manual) Eosinophils # (Manual) Basophils # (Manual) PT INR Fibrinogen dRVVT Confirm Interp Factor V Activity POC ABG pH POC ABG pCO2 33.1 L POC ABG pO2 76 L ABG pO2 ABG HCO3 ABG Base Excess ABG Hemoglobin Oxyhemoglobin Sodium Potassium Chloride Carbon Dioxide BUN Creatinine Glucose POC Glucose 156 H 129 H Lactic Acid Calcium Phosphorus Magnesium Direct Bilirubin AST ALT Alkaline Phosphatase Lactate Dehydrogenase Troponin T C-Reactive Protein Total Protein Albumin Prealbumin Triglycerides Cholesterol LDL Cholesterol Direct HDL Cholesterol Urine pH Urine WBC (Auto) Urine Creatinine Urine Total Protein Fluid Total Protein Vancomycin Trough Rheumatoid Factor Complement C4 Miscellaneous Test Crossmatch 01/19/17 01/20/17 01/20/17 23:49 04:00 05:21 WBC RBC Hgb Hct MCV MCH MCHC RDW Plt Count Lymph % (Auto) [place] % (Auto) Lymph # [place] # Baso # Seg Neutrophils % Seg Neuts % (Manual) Lymphocytes % (Manual) Monocytes % (Manual) Eosinophils % (Manual) Basophils % (Manual) Nucleated RBC % Seg Neutrophils # Seg Neutrophils # Man Lymphocytes # (Manual) Monocytes # (Manual) Eosinophils # (Manual) Basophils # (Manual) PT INR Fibrinogen dRVVT Confirm Interp Factor V Activity POC ABG pH POC ABG pCO2 POC ABG pO2 ABG pO2 ABG HCO3 ABG Base Excess ABG Hemoglobin Oxyhemoglobin Sodium Potassium Chloride Carbon Dioxide BUN 96 H Creatinine 1.9 H Glucose 106 H POC Glucose 125 H 130 H Lactic Acid Calcium Phosphorus 2.40 L Magnesium Direct Bilirubin AST ALT Alkaline Phosphatase Lactate Dehydrogenase Troponin T C-Reactive Protein Total Protein Albumin Prealbumin Triglycerides Cholesterol LDL Cholesterol Direct HDL Cholesterol Urine pH Urine WBC (Auto) Urine Creatinine Urine Total Protein Fluid Total Protein Vancomycin Trough Rheumatoid Factor Complement C4 Miscellaneous Test Crossmatch 01/20/17 01/20/17 01/20/17 11:58 12:17 17:26 WBC RBC Hgb Hct MCV MCH MCHC RDW Plt Count Lymph % (Auto) [place] % (Auto) Lymph # [place] # Baso # Seg Neutrophils % Seg Neuts % (Manual) Lymphocytes % (Manual) Monocytes % (Manual) Eosinophils % (Manual) Basophils % (Manual) Nucleated RBC % Seg Neutrophils # Seg Neutrophils # Man Lymphocytes # (Manual) Monocytes # (Manual) Eosinophils # (Manual) Basophils # (Manual) PT INR Fibrinogen dRVVT Confirm Interp Factor V Activity POC ABG pH POC ABG pCO2 POC ABG pO2 70 L ABG pO2 ABG HCO3 ABG Base Excess ABG Hemoglobin Oxyhemoglobin Sodium Potassium Chloride Carbon Dioxide BUN Creatinine Glucose POC Glucose 118 H 154 H Lactic Acid Calcium Phosphorus Magnesium Direct Bilirubin AST ALT Alkaline Phosphatase Lactate Dehydrogenase Troponin T C-Reactive Protein Total Protein Albumin Prealbumin Triglycerides Cholesterol LDL Cholesterol Direct HDL Cholesterol Urine pH Urine WBC (Auto) Urine Creatinine Urine Total Protein Fluid Total Protein Vancomycin Trough Rheumatoid Factor Complement C4 Miscellaneous Test Crossmatch 01/21/17 01/21/17 01/21/17 04:00 04:56 11:46 WBC RBC Hgb Hct MCV MCH MCHC RDW Plt Count Lymph % (Auto) [place] % (Auto) Lymph # [place] # Baso # Seg Neutrophils % Seg Neuts % (Manual) Lymphocytes % (Manual) Monocytes % (Manual) Eosinophils % (Manual) Basophils % (Manual) Nucleated RBC % Seg Neutrophils # Seg Neutrophils # Man Lymphocytes # (Manual) Monocytes # (Manual) Eosinophils # (Manual) Basophils # (Manual) PT INR Fibrinogen dRVVT Confirm Interp Factor V Activity POC ABG pH POC ABG pCO2 POC ABG pO2 ABG pO2 ABG HCO3 ABG Base Excess ABG Hemoglobin Oxyhemoglobin Sodium Potassium 3.5 L Chloride 97.4 L Carbon Dioxide BUN 66 H Creatinine 1.4 H Glucose POC Glucose 116 H 106 H Lactic Acid Calcium Phosphorus 2.10 L Magnesium Direct Bilirubin AST ALT Alkaline Phosphatase Lactate Dehydrogenase Troponin T C-Reactive Protein Total Protein Albumin Prealbumin Triglycerides Cholesterol LDL Cholesterol Direct HDL Cholesterol Urine pH Urine WBC (Auto) Urine Creatinine Urine Total Protein Fluid Total Protein Vancomycin Trough Rheumatoid Factor Complement C4 Miscellaneous Test Crossmatch 01/21/17 01/21/17 01/22/17 17:25 23:49 05:35 WBC RBC Hgb Hct MCV MCH MCHC RDW Plt Count Lymph % (Auto) [place] % (Auto) Lymph # [place] # Baso # Seg Neutrophils % Seg Neuts % (Manual) Lymphocytes % (Manual) Monocytes % (Manual) Eosinophils % (Manual) Basophils % (Manual) Nucleated RBC % Seg Neutrophils # Seg Neutrophils # Man Lymphocytes # (Manual) Monocytes # (Manual) Eosinophils # (Manual) Basophils # (Manual) PT INR Fibrinogen dRVVT Confirm Interp Factor V Activity POC ABG pH POC ABG pCO2 POC ABG pO2 ABG pO2 ABG HCO3 ABG Base Excess ABG Hemoglobin Oxyhemoglobin Sodium Potassium Chloride Carbon Dioxide BUN Creatinine Glucose POC Glucose 106 H 133 H 107 H Lactic Acid Calcium Phosphorus Magnesium Direct Bilirubin AST ALT Alkaline Phosphatase Lactate Dehydrogenase Troponin T C-Reactive Protein Total Protein Albumin Prealbumin Triglycerides Cholesterol LDL Cholesterol Direct HDL Cholesterol Urine pH Urine WBC (Auto) Urine Creatinine Urine Total Protein Fluid Total Protein Vancomycin Trough Rheumatoid Factor Complement C4 Miscellaneous Test Crossmatch 01/22/17 01/22/17 01/22/17 07:20 07:20 11:31 WBC RBC 2.75 L Hgb 7.5 L Hct 22.7 L MCV MCH 27 L MCHC RDW 17.5 H Plt Count Lymph % (Auto) [place] % (Auto) Lymph # [place] # Baso # Seg Neutrophils % Seg Neuts % (Manual) Lymphocytes % (Manual) Monocytes % (Manual) Eosinophils % (Manual) Basophils % (Manual) Nucleated RBC % Seg Neutrophils # Seg Neutrophils # Man Lymphocytes # (Manual) Monocytes # (Manual) Eosinophils # (Manual) Basophils # (Manual) PT INR Fibrinogen dRVVT Confirm Interp Factor V Activity POC ABG pH POC ABG pCO2 POC ABG pO2 ABG pO2 ABG HCO3 ABG Base Excess ABG Hemoglobin Oxyhemoglobin Sodium Potassium 3.3 L Chloride Carbon Dioxide BUN 42 H Creatinine Glucose 105 H POC Glucose 124 H Lactic Acid Calcium Phosphorus 1.70 L Magnesium Direct Bilirubin AST ALT Alkaline Phosphatase Lactate Dehydrogenase Troponin T C-Reactive Protein Total Protein Albumin Prealbumin Triglycerides Cholesterol LDL Cholesterol Direct HDL Cholesterol Urine pH Urine WBC (Auto) Urine Creatinine Urine Total Protein Fluid Total Protein Vancomycin Trough Rheumatoid Factor Complement C4 Miscellaneous Test Crossmatch 01/22/17 01/22/17 01/23/17 17:16 23:35 05:35 WBC RBC Hgb Hct MCV MCH MCHC RDW Plt Count Lymph % (Auto) [place] % (Auto) Lymph # [place] # Baso # Seg Neutrophils % Seg Neuts % (Manual) Lymphocytes % (Manual) Monocytes % (Manual) Eosinophils % (Manual) Basophils % (Manual) Nucleated RBC % Seg Neutrophils # Seg Neutrophils # Man Lymphocytes # (Manual) Monocytes # (Manual) Eosinophils # (Manual) Basophils # (Manual) PT INR Fibrinogen dRVVT Confirm Interp Factor V Activity POC ABG pH POC ABG pCO2 POC ABG pO2 ABG pO2 ABG HCO3 ABG Base Excess ABG Hemoglobin Oxyhemoglobin Sodium Potassium Chloride Carbon Dioxide BUN Creatinine Glucose POC Glucose 135 H 120 H 111 H Lactic Acid Calcium Phosphorus Magnesium Direct Bilirubin AST ALT Alkaline Phosphatase Lactate Dehydrogenase Troponin T C-Reactive Protein Total Protein Albumin Prealbumin Triglycerides Cholesterol LDL Cholesterol Direct HDL Cholesterol Urine pH Urine WBC (Auto) Urine Creatinine Urine Total Protein Fluid Total Protein Vancomycin Trough Rheumatoid Factor Complement C4 Miscellaneous Test Crossmatch 01/23/17 01/23/17 01/23/17 06:10 17:27 23:44 WBC RBC Hgb Hct MCV MCH MCHC RDW Plt Count Lymph % (Auto) [place] % (Auto) Lymph # [place] # Baso # Seg Neutrophils % Seg Neuts % (Manual) Lymphocytes % (Manual) Monocytes % (Manual) Eosinophils % (Manual) Basophils % (Manual) Nucleated RBC % Seg Neutrophils # Seg Neutrophils # Man Lymphocytes # (Manual) Monocytes # (Manual) Eosinophils # (Manual) Basophils # (Manual) PT INR Fibrinogen dRVVT Confirm Interp Factor V Activity POC ABG pH POC ABG pCO2 POC ABG pO2 ABG pO2 ABG HCO3 ABG Base Excess ABG Hemoglobin Oxyhemoglobin Sodium Potassium 3.3 L Chloride Carbon Dioxide BUN 66 H Creatinine 1.3 H Glucose 109 H POC Glucose 120 H 115 H Lactic Acid Calcium Phosphorus 2.20 L D Magnesium Direct Bilirubin AST ALT Alkaline Phosphatase Lactate Dehydrogenase Troponin T C-Reactive Protein Total Protein Albumin Prealbumin Triglycerides Cholesterol LDL Cholesterol Direct HDL Cholesterol Urine pH Urine WBC (Auto) Urine Creatinine Urine Total Protein Fluid Total Protein Vancomycin Trough Rheumatoid Factor Complement C4 Miscellaneous Test Crossmatch 01/24/17 01/24/17 01/24/17 05:19 05:50 12:19 WBC RBC Hgb Hct MCV MCH MCHC RDW Plt Count Lymph % (Auto) [place] % (Auto) Lymph # [place] # Baso # Seg Neutrophils % Seg Neuts % (Manual) Lymphocytes % (Manual) Monocytes % (Manual) Eosinophils % (Manual) Basophils % (Manual) Nucleated RBC % Seg Neutrophils # Seg Neutrophils # Man Lymphocytes # (Manual) Monocytes # (Manual) Eosinophils # (Manual) Basophils # (Manual) PT INR Fibrinogen dRVVT Confirm Interp Factor V Activity POC ABG pH POC ABG pCO2 POC ABG pO2 ABG pO2 ABG HCO3 ABG Base Excess ABG Hemoglobin Oxyhemoglobin Sodium Potassium Chloride Carbon Dioxide BUN 47 H Creatinine Glucose 117 H POC Glucose 126 H 119 H Lactic Acid Calcium Phosphorus 2.30 L Magnesium 1.60 L Direct Bilirubin AST ALT Alkaline Phosphatase Lactate Dehydrogenase Troponin T C-Reactive Protein Total Protein Albumin Prealbumin Triglycerides Cholesterol LDL Cholesterol Direct HDL Cholesterol Urine pH Urine WBC (Auto) Urine Creatinine Urine Total Protein Fluid Total Protein Vancomycin Trough Rheumatoid Factor Complement C4 Miscellaneous Test Crossmatch 01/24/17 01/25/17 01/25/17 17:08 00:37 04:00 WBC RBC Hgb Hct MCV MCH MCHC RDW Plt Count Lymph % (Auto) [place] % (Auto) Lymph # [place] # Baso # Seg Neutrophils % Seg Neuts % (Manual) Lymphocytes % (Manual) Monocytes % (Manual) Eosinophils % (Manual) Basophils % (Manual) Nucleated RBC % Seg Neutrophils # Seg Neutrophils # Man Lymphocytes # (Manual) Monocytes # (Manual) Eosinophils # (Manual) Basophils # (Manual) PT INR Fibrinogen dRVVT Confirm Interp Factor V Activity POC ABG pH POC ABG pCO2 POC ABG pO2 ABG pO2 ABG HCO3 ABG Base Excess ABG Hemoglobin Oxyhemoglobin Sodium Potassium Chloride Carbon Dioxide BUN 72 H Creatinine 1.3 H Glucose POC Glucose 127 H 110 H Lactic Acid Calcium Phosphorus Magnesium Direct Bilirubin AST ALT Alkaline Phosphatase Lactate Dehydrogenase Troponin T C-Reactive Protein Total Protein Albumin Prealbumin Triglycerides Cholesterol LDL Cholesterol Direct HDL Cholesterol Urine pH Urine WBC (Auto) Urine Creatinine Urine Total Protein Fluid Total Protein Vancomycin Trough Rheumatoid Factor Complement C4 Miscellaneous Test Crossmatch 01/25/17 01/25/17 01/25/17 04:00 11:15 13:05 WBC RBC 2.49 L Hgb 6.7 L Hct 20.9 L MCV MCH 27 L MCHC RDW 18.8 H Plt Count Lymph % (Auto) [place] % (Auto) 10.1 H Lymph # [place] # 1.0 H Baso # Seg Neutrophils % Seg Neuts % (Manual) Lymphocytes % (Manual) Monocytes % (Manual) Eosinophils % (Manual) Basophils % (Manual) Nucleated RBC % Seg Neutrophils # Seg Neutrophils # Man Lymphocytes # (Manual) Monocytes # (Manual) Eosinophils # (Manual) Basophils # (Manual) PT INR Fibrinogen dRVVT Confirm Interp Factor V Activity POC ABG pH POC ABG pCO2 POC ABG pO2 ABG pO2 ABG HCO3 ABG Base Excess ABG Hemoglobin Oxyhemoglobin Sodium Potassium Chloride Carbon Dioxide BUN Creatinine Glucose POC Glucose 128 H Lactic Acid Calcium Phosphorus Magnesium Direct Bilirubin AST ALT Alkaline Phosphatase Lactate Dehydrogenase Troponin T C-Reactive Protein Total Protein Albumin Prealbumin Triglycerides Cholesterol LDL Cholesterol Direct HDL Cholesterol Urine pH Urine WBC (Auto) Urine Creatinine Urine Total Protein Fluid Total Protein Vancomycin Trough Rheumatoid Factor Complement C4 Miscellaneous Test Crossmatch See Detail 01/25/17 01/25/17 01/26/17 18:02 23:07 01:20 WBC RBC Hgb Hct MCV MCH MCHC RDW Plt Count Lymph % (Auto) [place] % (Auto) Lymph # [place] # Baso # Seg Neutrophils % Seg Neuts % (Manual) Lymphocytes % (Manual) Monocytes % (Manual) Eosinophils % (Manual) Basophils % (Manual) Nucleated RBC % Seg Neutrophils # Seg Neutrophils # Man Lymphocytes # (Manual) Monocytes # (Manual) Eosinophils # (Manual) Basophils # (Manual) PT INR Fibrinogen dRVVT Confirm Interp Factor V Activity POC ABG pH POC ABG pCO2 POC ABG pO2 ABG pO2 ABG HCO3 ABG Base Excess ABG Hemoglobin Oxyhemoglobin Sodium Potassium Chloride Carbon Dioxide BUN Creatinine Glucose POC Glucose 120 H 123 H 112 H Lactic Acid Calcium Phosphorus Magnesium Direct Bilirubin AST ALT Alkaline Phosphatase Lactate Dehydrogenase Troponin T C-Reactive Protein Total Protein Albumin Prealbumin Triglycerides Cholesterol LDL Cholesterol Direct HDL Cholesterol Urine pH Urine WBC (Auto) Urine Creatinine Urine Total Protein Fluid Total Protein Vancomycin Trough Rheumatoid Factor Complement C4 Miscellaneous Test Crossmatch 01/26/17 01/26/17 04:20 04:20 WBC 13.1 H RBC 3.28 L Hgb 9.0 L Hct 26.9 L D MCV MCH 27 L MCHC RDW 17.2 H Plt Count Lymph % (Auto) [place] % (Auto) 9.0 H Lymph # [place] # 1.2 H Baso # Seg Neutrophils % 73.1 H Seg Neuts % (Manual) Lymphocytes % (Manual) Monocytes % (Manual) Eosinophils % (Manual) Basophils % (Manual) Nucleated RBC % Seg Neutrophils # 9.6 H Seg Neutrophils # Man Lymphocytes # (Manual) Monocytes # (Manual) Eosinophils # (Manual) Basophils # (Manual) PT INR Fibrinogen dRVVT Confirm Interp Factor V Activity POC ABG pH POC ABG pCO2 POC ABG pO2 ABG pO2 ABG HCO3 ABG Base Excess ABG Hemoglobin Oxyhemoglobin Sodium Potassium Chloride Carbon Dioxide BUN 51 H Creatinine Glucose 117 H POC Glucose Lactic Acid Calcium Phosphorus Magnesium Direct Bilirubin AST ALT Alkaline Phosphatase Lactate Dehydrogenase Troponin T C-Reactive Protein Total Protein Albumin Prealbumin Triglycerides Cholesterol LDL Cholesterol Direct HDL Cholesterol Urine pH Urine WBC (Auto) Urine Creatinine Urine Total Protein Fluid Total Protein Vancomycin Trough Rheumatoid Factor Complement C4 Miscellaneous Test Crossmatch Allied health notes reviewed: RT (not tolerating weaning. Has been on PS 18/5, desaturations if PS is weaned)
--- NOTE | 2017-01-26 11:38 | Progress Note ---
Assessment and Plan Malnutrition with need for nutritional support. History of sepsis previous PEG , gastric perforation secondary to dislodging of that PEG. Persistent abdominal wall drainage. Given the patient's history, there is a possibility that a replacement PEG can be done however this is met with a higher risk than before giving the patient's history. As she is currently not tolerating tube feeds via nasogastric tube, I do not believe she would tolerate tube feeds via PEG tube limiting the current indications of placement. She may benefit from a gastrojejunostomy tube possibly placed by IR. I have discussed this with Dr. House. Based upon the conversation other options will be explored. If no other options are found then we'll discuss the risks and benefits with the family of placement. - Patient Problems (1) Dislodged gastrostomy tube Current Visit: Yes Status: Acute Subjective Date of service: 01/26/17 (asked to re evaluate for placement of a PEG) Patient Reports: Positive: afebrile, other Narrative: The patient is well-known to the service as she is had a history of a previous PEG placed by myself with subsequent dislodging and resulting linkage causing peritonitis. She was taken to the OR for a partial gastrectomy involving the gastrotomy. She has been maintained in ICU for supportive care. She is currently on TPN and is unable to tolerate tube feeds with a history of nausea and vomiting following initiation. Reinsertion of a PEG tube is then brought as a possible means for nutritional status and upkeep. Objective Vital Signs - 12hr 01/25/17 01/25/17 01/26/17 23:42 23:45 00:00 Temperature 98.8 F Pulse Rate 118 H Pulse Rate [ Anterior Bilateral Throughout] Respiratory 31 H 29 H Rate Respiratory Rate [Anterior Bilateral Throughout] Blood Pressure 109/70 113/71 O2 Sat by Pulse 100 100 Oximetry O2 Sat by Pulse 100 Oximetry [ Assessment] 01/26/17 01/26/17 01/26/17 00:15 00:30 00:45 Temperature Pulse Rate 114 H 111 H 111 H Pulse Rate [ Anterior Bilateral Throughout] Respiratory 29 H 30 H 29 H Rate Respiratory Rate [Anterior Bilateral Throughout] Blood Pressure 116/69 110/72 106/74 O2 Sat by Pulse 100 100 100 Oximetry O2 Sat by Pulse Oximetry [ Assessment] 01/26/17 01/26/17 01/26/17 01:01 01:15 01:21 Temperature Pulse Rate 118 H 115 H 120 H Pulse Rate [ Anterior Bilateral Throughout] Respiratory 30 H 29 H Rate Respiratory Rate [Anterior Bilateral Throughout] Blood Pressure 110/77 119/71 119/71 O2 Sat by Pulse 100 100 Oximetry O2 Sat by Pulse Oximetry [ Assessment] 01/26/17 01/26/17 01/26/17 01:30 01:45 01:55 Temperature Pulse Rate 111 H 98 H Pulse Rate [ 95 H Anterior Bilateral Throughout] Respiratory 30 H 28 H Rate Respiratory 24 Rate [Anterior Bilateral Throughout] Blood Pressure 123/81 110/62 O2 Sat by Pulse 100 100 Oximetry O2 Sat by Pulse Oximetry [ Assessment] 01/26/17 01/26/17 01/26/17 02:00 02:15 02:30 Temperature Pulse Rate 95 H 96 H 96 H Pulse Rate [ 100 H Anterior Bilateral Throughout] Respiratory 23 22 21 Rate Respiratory 23 Rate [Anterior Bilateral Throughout] Blood Pressure 110/71 109/70 111/73 O2 Sat by Pulse 100 100 100 Oximetry O2 Sat by Pulse Oximetry [ Assessment] 01/26/17 01/26/17 01/26/17 02:45 03:00 03:15 Temperature Pulse Rate 98 H 99 H 97 H Pulse Rate [ Anterior Bilateral Throughout] Respiratory 23 22 22 Rate Respiratory Rate [Anterior Bilateral Throughout] Blood Pressure 111/75 116/74 113/74 O2 Sat by Pulse 100 100 100 Oximetry O2 Sat by Pulse Oximetry [ Assessment] 01/26/17 01/26/17 01/26/17 03:30 03:45 03:50 Temperature Pulse Rate 99 H 104 H 104 H Pulse Rate [ Anterior Bilateral Throughout] Respiratory 22 18 Rate Respiratory Rate [Anterior Bilateral Throughout] Blood Pressure 114/64 116/73 116/73 O2 Sat by Pulse 99 100 100 Oximetry O2 Sat by Pulse Oximetry [ Assessment] 01/26/17 01/26/17 01/26/17 04:00 04:15 04:30 Temperature 98.6 F Pulse Rate 102 H 103 H 101 H Pulse Rate [ Anterior Bilateral Throughout] Respiratory 20 21 18 Rate Respiratory Rate [Anterior Bilateral Throughout] Blood Pressure 102/64 110/66 115/64 O2 Sat by Pulse 100 100 99 Oximetry O2 Sat by Pulse Oximetry [ Assessment] 01/26/17 01/26/17 01/26/17 04:45 05:00 05:15 Temperature Pulse Rate 101 H 104 H 103 H Pulse Rate [ Anterior Bilateral Throughout] Respiratory 18 20 22 Rate Respiratory Rate [Anterior Bilateral Throughout] Blood Pressure 107/60 116/67 112/65 O2 Sat by Pulse 99 99 99 Oximetry O2 Sat by Pulse Oximetry [ Assessment] 01/26/17 01/26/17 01/26/17 05:30 05:45 06:00 Temperature Pulse Rate 105 H 107 H 103 H Pulse Rate [ Anterior Bilateral Throughout] Respiratory 22 27 H 16 Rate Respiratory Rate [Anterior Bilateral Throughout] Blood Pressure 106/68 118/69 100/61 O2 Sat by Pulse 100 99 99 Oximetry O2 Sat by Pulse Oximetry [ Assessment] 01/26/17 01/26/17 01/26/17 06:03 06:15 06:31 Temperature Pulse Rate 106 H 102 H 113 H Pulse Rate [ Anterior Bilateral Throughout] Respiratory 37 H 22 27 H Rate Respiratory Rate [Anterior Bilateral Throughout] Blood Pressure 100/61 92/58 134/81 O2 Sat by Pulse 99 100 99 Oximetry O2 Sat by Pulse Oximetry [ Assessment] 01/26/17 01/26/17 01/26/17 06:45 06:53 08:00 Temperature 99.4 F Pulse Rate 107 H 98 H Pulse Rate [ 103 H Anterior Bilateral Throughout] Respiratory 27 H Rate Respiratory 19 Rate [Anterior Bilateral Throughout] Blood Pressure 104/67 107/56 O2 Sat by Pulse 99 Oximetry O2 Sat by Pulse Oximetry [ Assessment] 01/26/17 01/26/17 08:22 08:38 Temperature Pulse Rate 105 H Pulse Rate [ 109 H Anterior Bilateral Throughout] Respiratory Rate Respiratory 19 Rate [Anterior Bilateral Throughout] Blood Pressure 97/58 O2 Sat by Pulse 99 Oximetry O2 Sat by Pulse Oximetry [ Assessment] - General physical appearance no distress - Neck trachea midline - Respiratory normal respiratory effort, other (on the ventilator.) - Abdomen soft, not tender, not distended, wound (right upper quadrant trocar site continues to drain purulent material however there is no induration or erythema. The fluid is being collected in an ostomy bag. The epigastric PEG tube site is closed no evidence of infection.) - Labs 01/26/17 04:20 01/26/17 04:20 Diabetes panel 01/26/17 Range/Units 04:20 Sodium 137 (137-145) mmol/L Potassium 4.6 (3.6-5.0) mmol/L Chloride 98.2 (98-107) mmol/L Carbon Dioxide 25 (22-30) mmol/L BUN 51 H (7-17) mg/dL Creatinine 1.1 (0.7-1.2) mg/dL Glucose 117 H (65-100) mg/dL Calcium 8.8 (8.4-10.2) mg/dL Calcium panel 01/26/17 Range/Units 04:20 Calcium 8.8 (8.4-10.2) mg/dL Phosphorus 3.60 (2.5-4.5) mg/dL Pituitary panel 01/26/17 Range/Units 04:20 Sodium 137 (137-145) mmol/L Potassium 4.6 (3.6-5.0) mmol/L Chloride 98.2 (98-107) mmol/L Carbon Dioxide 25 (22-30) mmol/L BUN 51 H (7-17) mg/dL Creatinine 1.1 (0.7-1.2) mg/dL Glucose 117 H (65-100) mg/dL Calcium 8.8 (8.4-10.2) mg/dL Adrenal panel 01/26/17 Range/Units 04:20 Sodium 137 (137-145) mmol/L Potassium 4.6 (3.6-5.0) mmol/L Chloride 98.2 (98-107) mmol/L Carbon Dioxide 25 (22-30) mmol/L BUN 51 H (7-17) mg/dL Creatinine 1.1 (0.7-1.2) mg/dL Glucose 117 H (65-100) mg/dL Calcium 8.8 (8.4-10.2) mg/dL
[2017-01-26] MEDS: MERREM IV SCH (14:01)
[2017-01-26] MEDS: NACL 0.9% IV SCH (14:01)
--- NOTE | 2017-01-26 14:53 | Event Note ---
Date: 01/26/17 Consulted for possible right sided chest tube. IR has been previously consulted for chest tube placement but there was an insuffient amount of fluid. Will order chest ultrasound to determine amount of pleural fluid. If too low, would not be able to place image guided chest tube.
--- NOTE | 2017-01-26 16:07 | Progress Note ---
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 Epogen 20k TIW * Dose medications for renal function * Avoid potential nephrotoxins * Rate control per cardiology * Vent management per pulm/CCM * Pressors prn for MAP>65 Subjective Date of service: 01/26/17 Principal diagnosis: Acute resp failure on MVS; S/P Acute CVA; Acute Encephalopathy; JUANITA Interval history: new events from last pm noted Objective - Exam Narrative Exam: Gen. appearance: Patient lying in bed, no apparent distress, 4. restraints HEENT: Normocephalic, atraumatic, pupils equally round and reactive to light, extraocular movement intact, and no sclericterus,. No JVD or thyromegaly or nodule,neck supple, no carotid bruit ,mucous membranes moist, unable to examine oral cavity Heart: S1, S2, regular rate and rhythm Lungs: Clear to auscultation bilaterally, breathing comfortable Abdomen: Positive bowel sounds, nontender, nondistended, no organomegaly Extremity: No edema, cyanosis, clubbing Skin: No rash, nodules, warm, dry Neuro: Difficult to assess, facial droop, moves all 4 extremities - Vital Signs Vital signs: Vital Signs - 12hr 01/26/17 01/26/17 01/26/17 04:15 04:30 04:45 Temperature Pulse Rate 103 H 101 H 101 H Pulse Rate [ Anterior Bilateral Throughout] Respiratory 21 18 18 Rate Respiratory Rate [Anterior Bilateral Throughout] Blood Pressure 110/66 115/64 107/60 O2 Sat by Pulse 100 99 99 Oximetry 01/26/17 01/26/17 01/26/17 05:00 05:15 05:30 Temperature Pulse Rate 104 H 103 H 105 H Pulse Rate [ Anterior Bilateral Throughout] Respiratory 20 22 22 Rate Respiratory Rate [Anterior Bilateral Throughout] Blood Pressure 116/67 112/65 106/68 O2 Sat by Pulse 99 99 100 Oximetry 01/26/17 01/26/17 01/26/17 05:45 06:00 06:03 Temperature Pulse Rate 107 H 103 H 106 H Pulse Rate [ Anterior Bilateral Throughout] Respiratory 27 H 16 37 H Rate Respiratory Rate [Anterior Bilateral Throughout] Blood Pressure 118/69 100/61 100/61 O2 Sat by Pulse 99 99 99 Oximetry 01/26/17 01/26/17 01/26/17 06:15 06:31 06:45 Temperature Pulse Rate 102 H 113 H 107 H Pulse Rate [ Anterior Bilateral Throughout] Respiratory 22 27 H 27 H Rate Respiratory Rate [Anterior Bilateral Throughout] Blood Pressure 92/58 134/81 104/67 O2 Sat by Pulse 100 99 99 Oximetry 01/26/17 01/26/17 01/26/17 06:53 07:00 07:15 Temperature Pulse Rate 98 H 106 H 106 H Pulse Rate [ Anterior Bilateral Throughout] Respiratory 21 17 Rate Respiratory Rate [Anterior Bilateral Throughout] Blood Pressure 107/56 113/66 107/60 O2 Sat by Pulse 100 99 Oximetry 01/26/17 01/26/17 01/26/17 07:30 07:45 08:00 Temperature 99.4 F Pulse Rate 107 H 105 H 108 H Pulse Rate [ 103 H Anterior Bilateral Throughout] Respiratory 22 17 20 Rate Respiratory 19 Rate [Anterior Bilateral Throughout] Blood Pressure 105/68 104/62 122/77 O2 Sat by Pulse 100 99 100 Oximetry 01/26/17 01/26/17 01/26/17 08:15 08:22 08:30 Temperature Pulse Rate 103 H 105 H 103 H Pulse Rate [ Anterior Bilateral Throughout] Respiratory 21 16 Rate Respiratory Rate [Anterior Bilateral Throughout] Blood Pressure 97/58 97/58 100/61 O2 Sat by Pulse 100 99 98 Oximetry 01/26/17 01/26/17 01/26/17 08:38 08:45 09:00 Temperature Pulse Rate 104 H 104 H Pulse Rate [ 109 H Anterior Bilateral Throughout] Respiratory 23 20 Rate Respiratory 19 Rate [Anterior Bilateral Throughout] Blood Pressure 96/57 91/59 O2 Sat by Pulse 100 100 Oximetry 01/26/17 01/26/17 01/26/17 09:15 09:30 09:45 Temperature Pulse Rate 105 H 105 H 106 H Pulse Rate [ Anterior Bilateral Throughout] Respiratory 21 17 19 Rate Respiratory Rate [Anterior Bilateral Throughout] Blood Pressure 97/57 98/58 105/68 O2 Sat by Pulse 96 100 100 Oximetry 01/26/17 01/26/17 01/26/17 10:00 10:15 10:31 Temperature Pulse Rate 105 H 109 H 125 H Pulse Rate [ Anterior Bilateral Throughout] Respiratory 20 18 23 Rate Respiratory Rate [Anterior Bilateral Throughout] Blood Pressure 110/63 111/63 105/68 O2 Sat by Pulse 100 100 100 Oximetry 01/26/17 01/26/17 01/26/17 10:45 11:00 11:15 Temperature Pulse Rate 113 H 118 H 119 H Pulse Rate [ Anterior Bilateral Throughout] Respiratory 21 22 21 Rate Respiratory Rate [Anterior Bilateral Throughout] Blood Pressure 105/68 109/64 106/70 O2 Sat by Pulse 93 94 93 Oximetry 01/26/17 01/26/17 01/26/17 11:30 11:44 11:56 Temperature 99.0 F Pulse Rate 111 H 114 H Pulse Rate [ Anterior Bilateral Throughout] Respiratory 25 H Rate Respiratory Rate [Anterior Bilateral Throughout] Blood Pressure 96/54 97/50 O2 Sat by Pulse 91 91 Oximetry 01/26/17 01/26/17 14:02 14:12 Temperature Pulse Rate Pulse Rate [ 117 H 117 H Anterior Bilateral Throughout] Respiratory Rate Respiratory 26 H 26 H Rate [Anterior Bilateral Throughout] Blood Pressure O2 Sat by Pulse Oximetry - Lab 01/26/17 04:20 01/26/17 04:20 Most recent lab results ABG pH 7.450 pH Units (7.350-7.450) 12/05/16 Unknown ABG pCO2 29.6 mm Hg 12/05/16 Unknown ABG pO2 75.2 mm Hg (80.0-90.0) L 12/05/16 Unknown ABG HCO3 20.1 mmol/L (20.0-26.0) 12/05/16 Unknown ABG O2 Saturation 96.8 % (95.0-99.0) 12/05/16 Unknown Calcium 8.8 mg/dL (8.4-10.2) 01/26/17 04:20 Phosphorus 3.60 mg/dL (2.5-4.5) 01/26/17 04:20 Magnesium 1.80 mg/dL (1.7-2.3) 01/26/17 04:20 Urine Creatinine 19.7 mg/dL (0.1-20.0) 11/12/16 10:18 Urine Sodium 36 mEq/L 09/16/16 19:19 Urine Total Protein 16 mg/dL (5-11.8) H 09/16/16 19:19
[2017-01-26] MEDS: TRANSDERM-SCOP TD SCH (16:37)
[2017-01-26] MEDS: NORVASC PO SCH (17:14)
--- NOTE | 2017-01-26 19:04 | Ultrasound Report ---
FINAL REPORT PROCEDURE: US CHEST TECHNIQUE: Ultrasound of the right chest HISTORY: assess right pleural fluid amount COMPARISON: No prior studies are available for comparison. FINDINGS: Small right pleural effusion in the in 230 cc range . Associated airspace disease IMPRESSION: Right pleural effusion documented by ultrasound
[2017-01-26] MEDS ORDERED: TPN ADULT IV SCH (20:00)
--- NOTE | 2017-01-26 20:51 | Progress Note ---
Assessment and Plan Assessment and plan: 46 years old female with massive stroke, now in vegetative state - Massive stroke with mass effect On vegetative state - Multiple episodes of sepsis with septic shock during her hospitalization Due to aspiration pneumonia/peritonitis from gastric perforation/UTI/candidemia/ decubitus ulcer Status post recent sacral decubitus debridement Right pleural effusion - scheduled for chest ultrasound for possible thoracentesis Currently on meropenem with stop date 02/04 - Acute hypoxic respiratory failure Status post tracheostomy Unweanable from vent support - Acute renal failure Likely due to ATN Renal function improved significantly, creatinine reaching normal limits Nephrology following - Paroxysmal atrial fibrillation with RVR Status post failed cardioversion Rate control Not on anticoagulation due to anemia/thrombocytopenia/massive stroke - Diabetes Accu-Cheks and SSI - Anemia Multifactorial, status post multiple PRBC transfusions Monitoring H&H - Thrombocytopenia Possible secondary to sepsis Now resolved - Electrolyte abnormalities Monitoring and replacing daily as needed - Severe protein calorie malnutrition TPN per dietitian - Encephalopathy Toxic metabolic initially, underlying conditions treated In vegetative state now - Per family's wishes, full code despite extremely poor prognosis History Interval history: Remains tachycardic, tachypneic, on vent Scheduled for chest ultrasound for possible thoracentesis Hospitalist Physical - Constitutional Vitals: Temp Pulse Resp BP Pulse Ox 100.6 F H 126 H 30 H 103/65 99 01/26/17 20:00 01/26/17 19:39 01/26/17 19:39 01/26/17 19:29 01/26/17 19:29 General appearance: Present: mild distress - Neck Neck: Present: other (trach). Absent: enlarged thyroid, masses or JVD - Respiratory Respiratory effort: other (on vent) Respiratory: bilateral: diminished, rales, rhonchi, negative: wheezing - Cardiovascular Rhythm: other (tachycardic) Heart Sounds: Present: S1 & S2. Absent: systolic murmur - Extremities Extremities: no ischemia Extremity abnormal: other (contractures UE>LE) - Abdominal General gastrointestinal: soft, non-distended, normal bowel sounds, other - Psychiatric Psychiatric: other (unresponsive) - Neurologic Neurologic: other (left upward gaze, hemiplegia) Results - Labs CBC & Chem 7: 01/26/17 04:20 01/26/17 04:20 Labs: Laboratory Last Values WBC 13.1 K/mm3 (4.5-11.0) H 01/26/17 04:20 RBC 3.28 M/mm3 (3.65-5.03) L 01/26/17 04:20 Hgb 9.0 gm/dl (10.1-14.3) L 01/26/17 04:20 Hct 26.9 % (30.3-42.9) L D 01/26/17 04:20 MCV 82 fl (79-97) 01/26/17 04:20 MCH 27 pg (28-32) L 01/26/17 04:20 MCHC 33 % (30-34) 01/26/17 04:20 RDW 17.2 % (13.2-15.2) H 01/26/17 04:20 Plt Count 305 K/mm3 (140-440) 01/26/17 04:20 Lymph % (Auto) 16.5 % (13.4-35.0) 01/26/17 04:20 [place] % (Auto) 9.0 % (0.0-7.3) H 01/26/17 04:20 Eos % (Auto) 0.6 % (0.0-4.3) 01/26/17 04:20 Baso % (Auto) 0.8 % (0.0-1.8) 01/26/17 04:20 Lymph # 2.2 K/mm3 (1.2-5.4) 01/26/17 04:20 [place] # 1.2 K/mm3 (0.0-0.8) H 01/26/17 04:20 Eos # 0.1 K/mm3 (0.0-0.4) 01/26/17 04:20 Baso # 0.1 K/mm3 (0.0-0.1) 01/26/17 04:20 Add Manual Diff Complete 12/19/16 05:02 Total Counted 100 12/19/16 05:02 Seg Neutrophils % 73.1 % (40.0-70.0) H 01/26/17 04:20 Seg Neuts % (Manual) 64.0 % (40.0-70.0) 12/19/16 05:02 Band Neutrophils % 15.0 % 12/19/16 05:02 Lymphocytes % (Manual) 13.0 % (13.4-35.0) L 12/19/16 05:02 Reactive Lymphs % (Man) 0 % 12/19/16 05:02 Monocytes % (Manual) 7.0 % (0.0-7.3) 12/19/16 05:02 Eosinophils % (Manual) 0 % (0.0-4.3) 12/19/16 05:02 Basophils % (Manual) 1.0 % (0.0-1.8) 12/19/16 05:02 Metamyelocytes % 0 % 12/19/16 05:02 Myelocytes % 0 % 12/19/16 05:02 Promyelocytes % 0 % 12/19/16 05:02 Blast Cells % 0 % 12/19/16 05:02 Nucleated RBC % 1.0 % (0.0-0.9) H 12/19/16 05:02 Seg Neutrophils # 9.6 K/mm3 (1.8-7.7) H 01/26/17 04:20 Seg Neutrophils # Man 12.9 K/mm3 (1.8-7.7) H 12/19/16 05:02 Band Neutrophils # 3.0 K/mm3 12/19/16 05:02 Lymphocytes # (Manual) 2.6 K/mm3 (1.2-5.4) 12/19/16 05:02 Abs React Lymphs (Man) 0.0 K/mm3 12/19/16 05:02 Monocytes # (Manual) 1.4 K/mm3 (0.0-0.8) H 12/19/16 05:02 Eosinophils # (Manual) 0.0 K/mm3 (0.0-0.4) 12/19/16 05:02 Basophils # (Manual) 0.2 K/mm3 (0.0-0.1) H 12/19/16 05:02 Metamyelocytes # 0.0 K/mm3 12/19/16 05:02 Myelocytes # 0.0 K/mm3 12/19/16 05:02 Promyelocytes # 0.0 K/mm3 12/19/16 05:02 Blast Cells # 0.0 K/mm3 12/19/16 05:02 Pathologist Review 09/13/16 04:00 WBC Morphology Not Reportable 12/19/16 05:02 Hypersegmented Neuts Not Reportable 12/19/16 05:02 Hyposegmented Neuts Not Reportable 12/19/16 05:02 Hypogranular Neuts Not Reportable 12/19/16 05:02 Smudge Cells Not Reportable 12/19/16 05:02 Toxic Granulation Not Reportable 12/19/16 05:02 Toxic Vacuolation Not Reportable 12/19/16 05:02 Dohle Bodies Not Reportable 12/19/16 05:02 Pelger-Huet Anomaly Not Reportable 12/19/16 05:02 Jasmina Rods Not Reportable 12/19/16 05:02 Platelet Estimate Consistent w auto 12/19/16 05:02 Clumped Platelets Not Reportable 12/19/16 05:02 Plt Clumps, EDTA Not Reportable 12/19/16 05:02 Large Platelets Not Reportable 12/19/16 05:02 Giant Platelets Not Reportable 12/19/16 05:02 Platelet Satelliting Not Reportable 12/19/16 05:02 Plt Morphology Comment Not Reportable 12/19/16 05:02 RBC Morphology Not Reportable 12/19/16 05:02 Dimorphic RBCs Not Reportable 12/19/16 05:02 Polychromasia Not Reportable 12/19/16 05:02 Hypochromasia Not Reportable 12/19/16 05:02 Poikilocytosis Not Reportable 12/19/16 05:02 Anisocytosis Not Reportable 12/19/16 05:02 Microcytosis Not Reportable 12/19/16 05:02 Macrocytosis Not Reportable 12/19/16 05:02 Spherocytes Not Reportable 12/19/16 05:02 Pappenheimer Bodies Not Reportable 12/19/16 05:02 Sickle Cells Not Reportable 12/19/16 05:02 Target Cells Few 12/19/16 05:02 Tear Drop Cells Not Reportable 12/19/16 05:02 Ovalocytes Not Reportable 12/19/16 05:02 Stomatocytes Rare 12/03/16 04:00 Helmet Cells Not Reportable 12/19/16 05:02 Monet-Al[place]ene Bodies Not Reportable 12/19/16 05:02 [place] Rings Not Reportable 12/19/16 05:02 [place] Cells Not Reportable 12/19/16 05:02 Bite Cells Not Reportable 12/19/16 05:02 Crenated Cell Not Reportable 12/19/16 05:02 Elliptocytes Not Reportable 12/19/16 05:02 Acanthocytes (Spur) Not Reportable 12/19/16 05:02 Rouleaux Not Reportable 12/19/16 05:02 Hemoglobin C Crystals Not Reportable 12/19/16 05:02 Schistocytes Not Reportable 12/19/16 05:02 Malaria parasites Not Reportable 12/19/16 05:02 ESR > 140.0 mm/Hr (0-20) 09/08/16 11:48 Jun Bodies Not Reportable 12/19/16 05:02 Hem Pathologist Commnt No 12/19/16 05:02 PT 15.4 Sec. (12.2-14.9) H 01/13/17 15:50 INR 1.16 (0.87-1.13) H 01/13/17 15:50 APTT 33.0 Sec. (24.2-36.6) 10/09/16 03:45 Thrombin Time 16.8 Sec. (15.1-19.6) 09/03/16 00:10 Fibrinogen 750 mg/dl (211-480) H 09/08/16 11:48 Lupus Anticoagulant see below 09/12/16 09:59 LA PTT Baseline See scanned report 09/12/16 09:59 dRVVT Confirm Interp Positive (Negative) H 09/12/16 09:59 dRVVT Screen 50:50 See scanned report 09/12/16 09:59 dRVVT Mix Interpret See scanned report 09/12/16 09:59 Protein C Antigen 122 % (70-140) 09/08/16 15:35 Free Protein S 97 % normal (50-147) 09/08/16 15:35 Total Protein S 109 % (70-140) 09/08/16 15:35 Antithrombin III Ag 100 % (80-120) 09/08/16 15:35 Heparin Anti-Xa, Unfract Negative (Negative) 09/29/16 13:35 Factor V Activity 182 % (65-150) H 09/08/16 15:35 POC ABG pH 7.436 (7.35-7.45) 01/20/17 12:17 ABG pH 7.450 pH Units (7.350-7.450) 12/05/16 Unknown POC ABG pCO2 35.3 (35-45) 01/20/17 12: ABG pCO2 29.6 mm Hg 12/05/16 Unknown POC ABG pO2 70 (80-105) L 01/20/17 12: ABG pO2 75.2 mm Hg (80.0-90.0) L 12/05/16 Unknown POC ABG HCO3 23.8 01/20/17 12: ABG HCO3 20.1 mmol/L (20.0-26.0) 12/05/16 Unknown POC ABG Total CO2 25 01/20/17 12: POC ABG O2 Sat 94 01/20/17 12: ABG O2 Saturation 96.8 % (95.0-99.0) 12/05/16 Unknown ABG O2 Content 9.9 (0.0-44) 12/05/16 Unknown POC ABG Base Excess 0 01/20/17 12: ABG Base Excess -3.4 mmol/L (-2.0-3.0) L 12/05/16 Unknown ABG Hemoglobin 7.4 gm/dl (12.0-16.0) L 12/05/16 Unknown ABG Carboxyhemoglobin 1.8 % (0.0-5.0) 12/05/16 Unknown ABG Methemoglobin 0.6 % (0.0-1.5) 12/05/16 Unknown Oxyhemoglobin 94.5 % (95.0-99.0) L 12/05/16 Unknown FiO2 30 % 01/20/17 12:17 Sodium 137 mmol/L (137-145) 01/26/17 04:20 Potassium 4.6 mmol/L (3.6-5.0) 01/26/17 04:20 Chloride 98.2 mmol/L (98-107) 01/26/17 04:20 Carbon Dioxide 25 mmol/L (22-30) 01/26/17 04:20 Anion Gap 18 mmol/L 01/26/17 04:20 BUN 51 mg/dL (7-17) H 01/26/17 04:20 Creatinine 1.1 mg/dL (0.7-1.2) 01/26/17 04:20 Estimated GFR > 60 ml/min 01/26/17 04:20 BUN/Creatinine Ratio 46 % 01/26/17 04:20 Glucose 117 mg/dL (65-100) H 01/26/17 04:20 POC Glucose 133 (70-105) H 01/26/17 17:11 Osmolality 351 Mosm/kg 09/16/16 11:47 Lactic Acid 2.30 mmol/L (0.7-2.0) H* 01/09/17 08:22 Calcium 8.8 mg/dL (8.4-10.2) 01/26/17 04:20 Phosphorus 3.60 mg/dL (2.5-4.5) 01/26/17 04:20 Magnesium 1.80 mg/dL (1.7-2.3) 01/26/17 04:20 Total Bilirubin 0.40 mg/dL (0.1-1.2) 01/17/17 05:30 Direct Bilirubin 0.3 mg/dL (0-0.2) H 10/10/16 05:00 Indirect Bilirubin 0.1 mg/dL 10/10/16 05:00 AST 26 units/L (5-40) 01/17/17 05:30 ALT 35 units/L (7-56) 01/17/17 05:30 Alkaline Phosphatase 254 units/L (35-129) H 01/17/17 05:30 Ammonia 27.0 umol/L (25-60) 09/07/16 08:37 Lactate Dehydrogenase 170 units/L (91-180) 01/13/17 15:50 Total Creatine Kinase 121 units/L (30-135) 09/29/16 20:12 CK-MB (CK-2) < 1.0 ng/mL (0.0-4.0) 09/29/16 20:12 CK-MB (CK-2) Rel Index 0.8 (0-4) 09/29/16 20:12 Troponin T 0.204 ng/mL (0.00-0.029) H* 09/29/16 20:12 C-Reactive Protein 24.70 mg/dL (0.00-1.30) H 01/09/17 13:30 Total Protein 6.6 g/dL (6.3-8.2) 01/17/17 05:30 Albumin 1.3 g/dL (3.9-5) L 01/17/17 05:30 Albumin/Globulin Ratio 0.2 % 01/17/17 05:30 Prealbumin 0.110 g/L (0.200-0.400) L 12/29/16 05:15 Triglycerides 137 mg/dL (2-149) 09/29/16 20:12 Cholesterol 31 mg/dL (50-199) L 09/29/16 20:12 LDL Cholesterol Direct 4 mg/dL (50-130) L 09/29/16 20:12 HDL Cholesterol 3 mg/dL (40-59) L 09/29/16 20:12 Cholesterol/HDL Ratio 10.33 % 09/29/16 20:12 Angiotensin Convert Enz See scanned report 09/08/16 11:48 Renin 0.99 ng/mL/h (0.25-5.82) 10/07/16 10:56 Aldosterone <1 ng/dL () 10/07/16 10:56 Aldosterone/Renin Dir see below 10/07/16 10:56 Serotonin Release Assay See scanned report 09/29/16 13:35 TSH 1.010 mlU/mL (0.270-4.200) 09/07/16 08:37 HCG, Qual Negative (Negative) 09/03/16 00:10 Urine Color Yellow (Yellow) 11/05/16 13:09 Urine Turbidity Clear (Clear) 11/05/16 13:09 Urine pH 9.0 (5.0-7.0) H 11/05/16 13:09 Ur Specific [place] 1.011 (1.003-1.030) 11/05/16 13:09 Urine Protein 100 mg/dl mg/dL (Negative) 11/05/16 13:09 Urine Glucose (UA) Neg mg/dL (Negative) 11/05/16 13:09 Urine Ketones Neg mg/dL (Negative) 11/05/16 13:09 Urine Blood Neg (Negative) 11/05/16 13:09 Urine Nitrite Neg (Negative) 11/05/16 13:09 Urine Bilirubin Neg (Negative) 11/05/16 13:09 Urine Urobilinogen < 2.0 mg/dL (<2.0) 11/05/16 13:09 Ur Leukocyte Esterase Neg (Negative) 11/05/16 13:09 Urine WBC (Auto) 4.0 /HPF (0.0-6.0) 11/05/16 13:09 Urine RBC (Auto) 1.0 /HPF (0.0-6.0) 11/05/16 13:09 U Epithel Cells (Auto) 1.0 /HPF (0-13.0) 10/07/16 18:30 Urine Bacteria (Auto) 4+ /HPF (Negative) 11/05/16 13:09 Urine WBC Clumps 2+ /HPF 09/07/16 02:47 Hyaline Casts 4 /LPF 09/07/16 02:47 Urine Mucus Few /HPF 10/07/16 18:30 Urine Yeast (Budding) 3+ /HPF 10/07/16 18:30 Urine Eosinophils None seen (None Seen) 09/07/16 16:00 Urine Total Volume 950 11/12/16 10:18 Urine Creatinine 19.7 mg/dL (0.1-20.0) 11/12/16 10:18 Height (in) 65.0 inches 11/12/16 10:18 Weight (lb) 181.0 lbs 11/12/16 10:18 Creatinine Clearance 5 11/12/16 10:18 Urine Sodium 36 mEq/L 09/16/16 19:19 Urine Total Protein 16 mg/dL (5-11.8) H 09/16/16 19:19 Fluid Type Pleural 01/13/17 12:10 Fluid Color Yellow 01/13/17 12:10 Fluid Appearance Hazy 01/13/17 12:10 Fluid WBC 182 /mm3 01/13/17 12:10 Fluid RBC 41 /mm3 01/13/17 12:10 Fluid Seg Neutrophils 85.0 % 01/13/17 12:10 Fluid Lymphocytes 8.0 % 01/13/17 12:10 Fluid Reactive Lymphs 0 % 01/13/17 12:10 Fluid Monocytes 6.0 % 01/13/17 12:10 Fluid Eosinophils 1.0 % 01/13/17 12:10 Fluid Basophils 0 % 01/13/17 12:10 Fluid Total Protein 3.0 (15.0-45.0) L 01/13/17 12:10 Fluid LDH 1322 01/13/17 12:10 Fluid Comment Diff performed 01/13/17 12:10 Vancomycin Trough 2.3 ug/mL (5.0-20.0) L 09/21/16 13:00 Random Vancomycin 16.5 ug/mL (0-40.0) 10/09/17 09:45 Urine Opiates Screen Presumptive negative 09/03/16 15:11 Urine Methadone Screen Presumptive positive 09/03/16 15:11 Ur Barbiturates Screen Presumptive positive 09/03/16 15:11 Ur Phencyclidine Scrn Presumptive negative 09/03/16 15:11 Ur Amphetamines Screen Presumptive negative 09/03/16 15:11 U Benzodiazepines Scrn Presumptive negative 09/03/16 15:11 Urine Cocaine Screen Presumptive negative 09/03/16 15:11 U Marijuana (THC) Screen Presumptive positive 09/03/16 15:11 Drugs of Abuse Note Disclamer 09/03/16 15:11 Rheumatoid Factor 24 IU/ml (0-13) H 09/08/16 11:48 SAHIL Screen Negative (Negative) 09/07/16 09:20 Proteinase 3 (PR3) Ab <1.0 AI (<1.0) 09/07/16 09:20 Myeloperoxidase Ab <1.0 AI (<1.0) 09/07/16 09:20 Sjogren's Antibody <1.0 AI (<1.0) 09/08/16 15:35 Scl-70 Scleroderma Ab <1.0 AI (<1.0) 09/08/16 15:35 Centromere B Antibody <1.0 AI (<1.0) 09/08/16 12:02 Heparin-induced Plt Ab Negative (Negative) 09/29/16 13:35 UF Heparin High Dose 11 % Release 09/29/16 13:35 SUDHIR UFH Low Dose 0.1 6 % Release 09/29/16 13:35 SUDHIR UFH Low Dose 0.5 8 % Release 09/29/16 13:35 Cardiolipid IgG Ab <14 GPL (<=14) 09/12/16 09:59 Cardiolipid IgA Ab <11 APL (<=11) 09/12/16 09:59 Cardiolipid IgM Ab <12 MPL (<=12) 09/12/16 09:59 Complement C3 148 mg/dL (90-180) 09/07/16 09:20 Complement C4 58 mg/dL (16-47) H 09/07/16 09:20 RPR Nonreactive (Nonreactive) 09/08/16 11:48 Hepatitis A IgM Ab Non-reactive (NonReactive) 09/24/16 14:40 Hep Bs Antigen Non-reactive (Negative) 09/24/16 14:40 Hep B Core IgM Ab Non-reactive (NonReactive) 09/24/16 14:40 Hepatitis C Antibody Non-reactive (NonReactive) 09/24/16 14:40 HIV 1&2 Antibody Rapid Non react (Non React) 09/08/16 11:48 HIV P24 Antigen Non react (Non React) 09/08/16 11:48 Miscellaneous Test Flexitest 1 H 01/09/17 18:45 Blood Type A POSITIVE 01/25/17 11:15 Antibody Screen Negative 01/25/17 11:15 DELORIS Antibody Screen Negative 11/24/16 11:20 Crossmatch See Detail 01/25/17 11:15
[2017-01-27] MEDS: LOPRESSOR PO SCH ×3 (01:41→18:21)
[2017-01-27] MEDS: HumuLIN R SUB-Q SCH ×4 (01:42→18:19)
[2017-01-27] MEDS: DUONEB *Not for PRN Use IH SCH ×4 (02:42→19:32)
[2017-01-27] MEDS: LASIX IV SCH (05:54)
[2017-01-27] MEDS: REGLAN IV SCH ×3 (05:54→22:21)
[2017-01-27] MEDS: APRESOLINE PO SCH ×2 (06:13→13:15)
[2017-01-27 06:34] LABS: Calcium 9.1 mg/dL (8.4-10.2)
[2017-01-27] MEDS: MERREM IV SCH (09:58)
[2017-01-27] MEDS: NACL 0.9% IV SCH (09:58)
[2017-01-27] MEDS: ROBINUL PO SCH ×2 (09:59→22:21)
[2017-01-27] MEDS: HEPARIN SUB-Q SCH ×2 (09:59→22:21)
[2017-01-27] MEDS: PROTONIX FEEDTUBE SCH (09:59)
[2017-01-27] MEDS: NORVASC PO SCH (10:03)
--- NOTE | 2017-01-27 10:08 | Progress Note ---
Assessment and Plan Assessment: 1) Recurrent SIRS: unclear source, fever better. 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 gastric perf (PEG placed on 09/20) +/- TPN +/- central lines -TTE 10/07 no vegetations -PICC exchanged on 10/03 -fully treated with micafungin for 14 days last day 10/13 4) History CA-UTI s/p gutierrez exchanged 5) Diarrhea - ? etiology ? antibiotic-induced, not better. 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 from GI bleed 13) Recent abdominal wall abscess at surgical site-treated 14 ) Recent Enterococcal bacteremia from PICC line infection. 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 -worsening -S/P debridement at bedside - new wound cx 01/24 +GNRs 16) Presumed VAP: sputum + MDR Pseudomonas / Proteus Plan: -continue meropenem total 4 weeks until 02/04 -f/u deep wound cx I will be off this weekend, but available over the phone. Thank you Dr Brown or your consultation, will follow up with you. Pauline Carias MD Infectious Diseases Specialist [facility] ([facility] M [phone] O [phone] Subjective Date of service: 01/27/17 Principal diagnosis: Acute resp failure on MVS; S/P Acute CVA; Acute Encephalopathy; JUANITA Interval history: Interval history: Alert, temp 100.6 , remains on the vent via trach + TPN Microbiology: Blood cultures: 09/13 neg 09/23 Silvia albicans 09/25 Silvia 09/29 neg 10/07 neg 11/05 neg 11/07 ngtd 103 E faecalis 1 of 4 bottles 11/25 neg 12/27 neg 01/09 ngtd Urine cultures: 09/10 neg 09/13 neg 8 10-100K mixed species 10/07 neg 11/05 VRE 11/07 mixed bacteria Respiratory cultures: 09/07 neg 09/13 neg 8 neg 11/07 MDR Pseudomonas 102 tracheal + VRE 01/09 Pseudomonas x 3 and Proteues Pleural effusion: ngtd Wound cultures: 10/17 abd wall wound purulence + Pseudomonas MDR 01/24 GNRs Stool cultures: cath tip 11/07 + CARCASS SPLITTER Current Antimicrobials: meropenem 01/08 Previous Antimicrobials: Zosyn 10/07 Vancomycin PO 10/01 Metronidazole 09/25 Micafungin 09/27-10/13 Meropenem 10/10 Vanco 10/17 zosyn 10/21 Cefepime 11/10 vancomyin 11/07 fluconazole 10/19 cefepime 10/29levaquin 11/05 vanco 11/23 Objective - Exam Narrative Exam: General appearance: somnolent non communicative, on the vent via trach in mild resp distress, no following commands Eyes: anicteric sclera, moist conjunctivae; PERRLA HENT: Atraumatic; oropharynx limited; Normal external ears. +NGT with greenish secretion Neck: +trach in place; supple, no thyromegaly or lymphadenopathy Lungs: brit coarse BS CV: rrr Abdomen: Soft, non-tender, +old PEG site no drainage. +iliostomy. Right sided Surgical site x 2 with ostomy bag draining small amount yellowish secretion Extremities: +peripheral edema Skin: sacral area wounds - per wound care STAGE 4 PRESSURE INJURY TO SACRAL MEASURES 7.5X6X2.5, WITH UNDERMINING FROM @9-1 OCLOCK-2.8CM-ULCER CLEANED WITH WOUND TECHNICAL DIRECTOR-ULCER NEW - Sacrum wound measuring 9x11cm. Necrotic tissue noted on the wound edges and in the wound bed Psych: somnolent . Neuro: alert non verbal on the vent. Lines: PICC / gutierrez - Constitutional Vitals: Vital Signs Temp Pulse Resp BP Pulse Ox 99.2 F 116 H 22 94/59 99 01/27/17 08:00 01/27/17 10:03 01/27/17 08:45 01/27/17 10:03 01/27/17 08:45 Temperature -Last 24 Hours Temperature 99.2 F Temperature 99.2 F Temperature 99.7 F Temperature 99.8 F Temperature 100.6 F Temperature 99.7 F Temperature 99.0 F - Labs CBC & Chem 7: 01/26/17 04:20 01/27/17 04:00 Labs: Abnormal lab results 01/26/17 01/26/17 01/27/17 Range/Units 11:23 17:11 00:30 Chloride (98-107) mmol/L Carbon Dioxide (22-30) mmol/L BUN (7-17) mg/dL Creatinine (0.7-1.2) mg/dL Glucose (65-100) mg/dL POC Glucose 125 H 133 H 135 H (70-105) Phosphorus (2.5-4.5) mg/dL 01/27/17 01/27/17 Range/Units 04:00 05:12 Chloride 97.7 L (98-107) mmol/L Carbon Dioxide 21 L (22-30) mmol/L BUN 79 H (7-17) mg/dL Creatinine 1.7 H D (0.7-1.2) mg/dL Glucose 112 H (65-100) mg/dL POC Glucose 116 H (70-105) Phosphorus 5.00 H D (2.5-4.5) mg/dL
--- NOTE | 2017-01-27 12:25 | Progress Note ---
Assessment and Plan Patient is 46-year-old woman with a history of hypertension, diabetes mellitus, asthma, hyperlipidemia, chronic kidney disease and anxiety, who was brought in by family because she couldn't get her words out, her face was also twisted, she was admitted for acute CVA and accelerated hypertension, she had a hx of poor adherence with her medications, and uncontrolled htn. Patient's SBP on admission was noted be greater than 260. TPA was started but this it was discontinued after 5 minutes because her blood pressure became uncontrolled. The TPA was not initiated again because the patient was outside the TPA window. Patient has had a prolonged hospital stay complicated with recurrent severe sepsis. Patient with most recent event also status post cardiac arrest on , with CPR and ROSC. Acute on chronic Hypoxemic Respiratory Failure ( not tolerating spontaneous breathing trials) Sepsis -recurrent s/p tracheostomy Hypertension Atrial Fibrillation with RVR Acute encephalopathy s/p CVA Oropharyngeal dysphagia Enterococcal bacteremia Sacral Decubitus Ulcer- unstageable s/p debridement Anemia Obesity JUANITA now on hemodialysis Enteric Fistula - VAP bundle addressed - continue NGT to LIS -Continue promotility agent--reglan - continue wound care/wound vac per WCT - Vasopressor if MAP falls < 65mmHg - keep on with daily PSV trials and / or T-piece as tolerated - continue TPN administration (continue TPN; NPO except for meds) - continue airway clearance and secretion management - continue to wean FiO2 for sats > 94% - continue antihypertensives and monitor hemodynamics closely - continue HD/UF per nephrology - continue to follow electrolytes and correct as necessary - continue GI & VTE prophylaxis Transfuse 1 unit PRBC as needed to keep HgH>7g/dL .....she remains critically ill on life sustaining interventions including MVS and at risk for further deterioration including ...senior living prognosis remains poor - Patient Problems (1) Acute respiratory failure with hypoxia Current Visit: Yes Status: Acute (2) Acute blood loss anemia Current Visit: Yes Status: Resolved (3) Acute CVA (cerebrovascular accident) Current Visit: Yes Status: Acute (4) Chronic renal insufficiency Current Visit: Yes Status: Acute (5) Uncontrolled hypertension Current Visit: Yes Status: Acute (6) Leukocytosis (leucocytosis) Current Visit: Yes Status: Acute Qualifiers: Leukocytosis type: leukemoid reaction Qualified Code(s): D72.823 - Leukemoid reaction (7) Dislodged gastrostomy tube Current Visit: Yes Status: Acute (8) Fungemia Current Visit: Yes Status: Resolved (9) Cardiopulmonary arrest with successful resuscitation Current Visit: Yes Status: Acute Subjective Date of service: 01/27/17 Principal diagnosis: Acute resp failure on MVS; S/P Acute CVA; Acute Encephalopathy; JUANITA Interval history: Patient is seen today for: Acute resp failure on MVS; S/P Acute CVA; Acute Encephalopathy; JUANITA Seen and examined at bedside; 24hour events reviewed; nursing and respiratory care staff consulted; no adverse overnight events reported to me; she remains critically ill , RT held weaning today, patient has had recurrent vomiting with episodes of desaturations Per RN on going vomiting. Vitals, labs, medications, chart reviewed. Discussed on interdisciplinary rounds Objective - Exam Narrative Exam: General appearance: somnolent non communicative, on the vent via trach in mild resp distress, no following commands Eyes: anicteric sclera, moist conjunctivae; PERRLA HENT: Atraumatic; oropharynx limited; Normal external ears. +NGT with greenish secretion Neck: +trach in place; supple, no thyromegaly or lymphadenopathy Lungs: brit coarse BS CV: rrr Abdomen: Soft, non-tender, +old PEG site no drainage. +iliostomy. Right sided Surgical site x 2 with ostomy bag draining small amount yellowish secretion Extremities: +peripheral edema Skin: sacral area wounds -s/p wound vac Psych: somnolent . Neuro: alert non verbal on the vent. Lines: PICC / gutierrez Vital Signs - 12hr 01/27/17 01/27/17 01/27/17 00:30 00:45 01:00 Temperature Pulse Rate 121 H 120 H 118 H Pulse Rate [ Apical] Pulse Rate [ From Monitor] Respiratory 26 H 26 H 23 Rate Respiratory Rate [ Generalized] Blood Pressure 94/48 84/44 87/55 O2 Sat by Pulse 97 91 98 Oximetry O2 Sat by Pulse Oximetry [ Assessment] 01/27/17 01/27/17 01/27/17 01:15 01:30 01:41 Temperature Pulse Rate 118 H 119 H 121 H Pulse Rate [ Apical] Pulse Rate [ From Monitor] Respiratory 23 24 Rate Respiratory Rate [ Generalized] Blood Pressure 88/58 94/56 88/44 O2 Sat by Pulse 98 98 Oximetry O2 Sat by Pulse Oximetry [ Assessment] 01/27/17 01/27/17 01/27/17 01:45 02:00 02:15 Temperature Pulse Rate 117 H 117 H 118 H Pulse Rate [ Apical] Pulse Rate [ From Monitor] Respiratory 27 H 20 22 Rate Respiratory Rate [ Generalized] Blood Pressure 88/39 95/47 95/43 O2 Sat by Pulse 97 98 98 Oximetry O2 Sat by Pulse Oximetry [ Assessment] 01/27/17 01/27/17 01/27/17 02:30 02:46 03:00 Temperature Pulse Rate 117 H 133 H 123 H Pulse Rate [ Apical] Pulse Rate [ From Monitor] Respiratory 22 29 H 22 Rate Respiratory Rate [ Generalized] Blood Pressure 95/49 95/49 103/53 O2 Sat by Pulse 98 98 97 Oximetry O2 Sat by Pulse Oximetry [ Assessment] 01/27/17 01/27/17 01/27/17 03:15 03:30 03:45 Temperature Pulse Rate 118 H 117 H 114 H Pulse Rate [ Apical] Pulse Rate [ From Monitor] Respiratory 27 H 22 27 H Rate Respiratory Rate [ Generalized] Blood Pressure 105/54 104/54 96/51 O2 Sat by Pulse 97 98 98 Oximetry O2 Sat by Pulse Oximetry [ Assessment] 01/27/17 01/27/17 01/27/17 03:47 03:48 04:00 Temperature 99.7 F H Pulse Rate 114 H 116 H Pulse Rate [ 116 H Apical] Pulse Rate [ From Monitor] Respiratory 25 H Rate Respiratory Rate [ Generalized] Blood Pressure 96/51 99/57 O2 Sat by Pulse 98 97 Oximetry O2 Sat by Pulse Oximetry [ Assessment] 01/27/17 01/27/17 01/27/17 04:15 04:30 04:45 Temperature Pulse Rate 108 H 116 H 116 H Pulse Rate [ Apical] Pulse Rate [ From Monitor] Respiratory 26 H 27 H 31 H Rate Respiratory Rate [ Generalized] Blood Pressure 82/49 97/60 88/56 O2 Sat by Pulse 98 98 93 Oximetry O2 Sat by Pulse Oximetry [ Assessment] 01/27/17 01/27/17 01/27/17 05:00 05:15 05:30 Temperature Pulse Rate 114 H 112 H 113 H Pulse Rate [ Apical] Pulse Rate [ From Monitor] Respiratory 32 H 27 H 28 H Rate Respiratory Rate [ Generalized] Blood Pressure 92/57 98/57 98/57 O2 Sat by Pulse 100 96 99 Oximetry O2 Sat by Pulse Oximetry [ Assessment] 01/27/17 01/27/17 01/27/17 05:45 06:00 06:13 Temperature Pulse Rate 111 H 117 H 112 H Pulse Rate [ Apical] Pulse Rate [ From Monitor] Respiratory 23 28 H Rate Respiratory Rate [ Generalized] Blood Pressure 95/52 97/54 97/54 O2 Sat by Pulse 99 95 Oximetry O2 Sat by Pulse Oximetry [ Assessment] 01/27/17 01/27/17 01/27/17 06:15 06:30 06:45 Temperature Pulse Rate 113 H 116 H 115 H Pulse Rate [ Apical] Pulse Rate [ From Monitor] Respiratory 28 H 22 33 H Rate Respiratory Rate [ Generalized] Blood Pressure 93/53 86/59 92/51 O2 Sat by Pulse 99 90 89 Oximetry O2 Sat by Pulse Oximetry [ Assessment] 01/27/17 01/27/17 01/27/17 07:00 07:15 07:30 Temperature Pulse Rate 113 H 115 H 115 H Pulse Rate [ Apical] Pulse Rate [ From Monitor] Respiratory 26 H 30 H 19 Rate Respiratory Rate [ Generalized] Blood Pressure 86/49 96/54 105/57 O2 Sat by Pulse 93 95 96 Oximetry O2 Sat by Pulse Oximetry [ Assessment] 01/27/17 01/27/17 01/27/17 07:45 08:00 08:15 Temperature 99.2 F Pulse Rate 114 H 115 H 113 H Pulse Rate [ Apical] Pulse Rate [ 115 H From Monitor] Respiratory 26 H 18 16 Rate Respiratory Rate [ Generalized] Blood Pressure 88/53 107/46 98/53 O2 Sat by Pulse 92 98 99 Oximetry O2 Sat by Pulse Oximetry [ Assessment] 01/27/17 01/27/17 01/27/17 08:30 08:45 10:00 Temperature Pulse Rate 111 H 114 H 110 H Pulse Rate [ Apical] Pulse Rate [ From Monitor] Respiratory 27 H 22 Rate Respiratory 23 Rate [ Generalized] Blood Pressure 94/51 92/58 O2 Sat by Pulse 98 99 Oximetry O2 Sat by Pulse Oximetry [ Assessment] 01/27/17 01/27/17 01/27/17 10:03 10:45 10:55 Temperature Pulse Rate 116 H 116 H Pulse Rate [ Apical] Pulse Rate [ From Monitor] Respiratory Rate Respiratory Rate [ Generalized] Blood Pressure 94/59 94/59 O2 Sat by Pulse 97 Oximetry O2 Sat by Pulse 98 Oximetry [ Assessment] 01/27/17 01/27/17 11:15 11:50 Temperature Pulse Rate 112 H 120 H Pulse Rate [ Apical] Pulse Rate [ From Monitor] Respiratory Rate Respiratory Rate [ Generalized] Blood Pressure 94/59 O2 Sat by Pulse 97 98 Oximetry O2 Sat by Pulse Oximetry [ Assessment] Constitutional: appears uncomfortable, other (not tracking) Eyes: non-icteric, other (tracheostomy tube in midline of neck) ENT: oropharynx moist, oropharyngeal exudate pre Neck: supple, no lymphadenopathy, no JVD, other (no thyromegaly) Effort: mildly labored Ascultation: Bilateral: clear, diminished breath sounds (bases), rales, rhonchi (and referred upper airway sounds) Percussion: Bilateral: not dull, dull (bases) Cardiovascular: regular rate and rhythm, other (no rubs / murmurs) Gastrointestinal: hypoactive bowel sounds, soft, non-tender, non-distended, other (RLQ & LUQ stomas with colostomy bags) Integumentary: decubitus ulcer (sacral; stage 4 s/p surgical debridement), other (no rash; no cellulitis; poor turgor) Extremities: no cyanosis, pulses normal, no ischemia or petechiae, edema (1+ bilaterally) Neurologic: pupils equal and round, unable to assess, other (encephalopathic) Psychiatric: other (unable to assess) CBC and BMP: 02/02/17 10:16 02/03/17 07:38 ABG, PT/INR, D-dimer: ABG POC ABG pH 7.436 (7.35-7.45) 01/20/17 12:17 ABG pH 7.450 pH Units (7.350-7.450) 12/05/16 Unknown POC ABG pCO2 35.3 (35-45) 01/20/17 12: ABG pCO2 29.6 mm Hg 12/05/16 Unknown POC ABG pO2 70 (80-105) L 01/20/17 12: ABG pO2 75.2 mm Hg (80.0-90.0) L 12/05/16 Unknown POC ABG HCO3 23.8 01/20/17 12:17 POC ABG Total CO2 25 01/20/17 12:17 POC ABG O2 Sat 94 01/20/17 12:17 ABG O2 Saturation 96.8 % (95.0-99.0) 12/05/16 Unknown PT/INR, D-dimer PT 15.4 Sec. (12.2-14.9) H 01/13/17 15:50 INR 1.16 (0.87-1.13) H 01/13/17 15:50 Abnormal lab findings: Abnormal Labs 09/03/16 09/03/16 09/03/16 00:03 00:10 00:10 WBC 13.9 H RBC 5.95 H Hgb Hct 44.0 H MCV 74 L MCH 22 L MCHC RDW 17.5 H Plt Count Lymph % (Auto) [place] % (Auto) Lymph # [place] # Baso # Seg Neutrophils % Seg Neuts % (Manual) Lymphocytes % (Manual) 54.0 H Monocytes % (Manual) Eosinophils % (Manual) Basophils % (Manual) Nucleated RBC % Seg Neutrophils # Seg Neutrophils # Man Lymphocytes # (Manual) 7.5 H Monocytes # (Manual) Eosinophils # (Manual) Basophils # (Manual) PT INR Fibrinogen dRVVT Confirm Interp Factor V Activity POC ABG pH POC ABG pCO2 POC ABG pO2 ABG pO2 ABG HCO3 ABG Base Excess ABG Hemoglobin Oxyhemoglobin Sodium Potassium 2.8 L* Chloride Carbon Dioxide 21 L BUN Creatinine 1.7 H Glucose 159 H POC Glucose 177 H Lactic Acid Calcium Phosphorus Magnesium Direct Bilirubin AST ALT Alkaline Phosphatase Lactate Dehydrogenase Troponin T C-Reactive Protein Total Protein Albumin Prealbumin Triglycerides Cholesterol LDL Cholesterol Direct HDL Cholesterol Urine pH Urine WBC (Auto) Urine Creatinine Urine Total Protein Fluid Total Protein Vancomycin Trough Rheumatoid Factor Complement C4 Miscellaneous Test Crossmatch 09/03/16 09/03/16 09/03/16 12:12 15:07 16:20 WBC RBC Hgb Hct MCV MCH MCHC RDW Plt Count Lymph % (Auto) [place] % (Auto) Lymph # [place] # Baso # Seg Neutrophils % Seg Neuts % (Manual) Lymphocytes % (Manual) Monocytes % (Manual) Eosinophils % (Manual) Basophils % (Manual) Nucleated RBC % Seg Neutrophils # Seg Neutrophils # Man Lymphocytes # (Manual) Monocytes # (Manual) Eosinophils # (Manual) Basophils # (Manual) PT INR Fibrinogen dRVVT Confirm Interp Factor V Activity POC ABG pH 7.452 H POC ABG pCO2 POC ABG pO2 ABG pO2 ABG HCO3 ABG Base Excess ABG Hemoglobin Oxyhemoglobin Sodium Potassium Chloride Carbon Dioxide BUN Creatinine Glucose POC Glucose 178 H Lactic Acid Calcium Phosphorus 2.20 L Magnesium 1.60 L Direct Bilirubin AST ALT Alkaline Phosphatase Lactate Dehydrogenase Troponin T C-Reactive Protein Total Protein Albumin Prealbumin Triglycerides Cholesterol LDL Cholesterol Direct HDL Cholesterol Urine pH Urine WBC (Auto) Urine Creatinine Urine Total Protein Fluid Total Protein Vancomycin Trough Rheumatoid Factor Complement C4 Miscellaneous Test Crossmatch 09/03/16 09/03/16 09/03/16 17:57 17:58 23:50 WBC RBC Hgb Hct MCV MCH MCHC RDW Plt Count Lymph % (Auto) [place] % (Auto) Lymph # [place] # Baso # Seg Neutrophils % Seg Neuts % (Manual) Lymphocytes % (Manual) Monocytes % (Manual) Eosinophils % (Manual) Basophils % (Manual) Nucleated RBC % Seg Neutrophils # Seg Neutrophils # Man Lymphocytes # (Manual) Monocytes # (Manual) Eosinophils # (Manual) Basophils # (Manual) PT INR Fibrinogen dRVVT Confirm Interp Factor V Activity POC ABG pH POC ABG pCO2 POC ABG pO2 ABG pO2 ABG HCO3 ABG Base Excess ABG Hemoglobin Oxyhemoglobin Sodium Potassium Chloride Carbon Dioxide BUN Creatinine Glucose POC Glucose 162 H 145 H Lactic Acid Calcium Phosphorus 2.30 L Magnesium Direct Bilirubin AST ALT Alkaline Phosphatase Lactate Dehydrogenase Troponin T C-Reactive Protein Total Protein Albumin Prealbumin Triglycerides Cholesterol LDL Cholesterol Direct HDL Cholesterol Urine pH Urine WBC (Auto) Urine Creatinine Urine Total Protein Fluid Total Protein Vancomycin Trough Rheumatoid Factor Complement C4 Miscellaneous Test Crossmatch 09/04/16 09/04/16 09/04/16 03:31 03:31 05:42 WBC RBC Hgb 9.7 L D Hct MCV 72 L MCH 23 L MCHC RDW 17.5 H Plt Count Lymph % (Auto) 11.1 L [place] % (Auto) Lymph # [place] # Baso # Seg Neutrophils % 84.3 H Seg Neuts % (Manual) Lymphocytes % (Manual) Monocytes % (Manual) Eosinophils % (Manual) Basophils % (Manual) Nucleated RBC % Seg Neutrophils # 8.9 H Seg Neutrophils # Man Lymphocytes # (Manual) Monocytes # (Manual) Eosinophils # (Manual) Basophils # (Manual) PT INR Fibrinogen dRVVT Confirm Interp Factor V Activity POC ABG pH POC ABG pCO2 POC ABG pO2 ABG pO2 ABG HCO3 ABG Base Excess ABG Hemoglobin Oxyhemoglobin Sodium 135 L Potassium 2.9 L* Chloride 97.2 L Carbon Dioxide 19 L BUN Creatinine 1.7 H Glucose 170 H POC Glucose 152 H Lactic Acid Calcium Phosphorus Magnesium Direct Bilirubin AST ALT Alkaline Phosphatase Lactate Dehydrogenase Troponin T C-Reactive Protein Total Protein Albumin Prealbumin Triglycerides 160 H Cholesterol LDL Cholesterol Direct HDL Cholesterol 31 L Urine pH Urine WBC (Auto) Urine Creatinine Urine Total Protein Fluid Total Protein Vancomycin Trough Rheumatoid Factor Complement C4 Miscellaneous Test Crossmatch 09/04/16 09/04/16 09/04/16 11:34 17:46 23:29 WBC RBC Hgb Hct MCV MCH MCHC RDW Plt Count Lymph % (Auto) [place] % (Auto) Lymph # [place] # Baso # Seg Neutrophils % Seg Neuts % (Manual) Lymphocytes % (Manual) Monocytes % (Manual) Eosinophils % (Manual) Basophils % (Manual) Nucleated RBC % Seg Neutrophils # Seg Neutrophils # Man Lymphocytes # (Manual) Monocytes # (Manual) Eosinophils # (Manual) Basophils # (Manual) PT INR Fibrinogen dRVVT Confirm Interp Factor V Activity POC ABG pH POC ABG pCO2 POC ABG pO2 ABG pO2 ABG HCO3 ABG Base Excess ABG Hemoglobin Oxyhemoglobin Sodium Potassium Chloride Carbon Dioxide BUN Creatinine Glucose POC Glucose 165 H 210 H 139 H Lactic Acid Calcium Phosphorus Magnesium Direct Bilirubin AST ALT Alkaline Phosphatase Lactate Dehydrogenase Troponin T C-Reactive Protein Total Protein Albumin Prealbumin Triglycerides Cholesterol LDL Cholesterol Direct HDL Cholesterol Urine pH Urine WBC (Auto) Urine Creatinine Urine Total Protein Fluid Total Protein Vancomycin Trough Rheumatoid Factor Complement C4 Miscellaneous Test Crossmatch 09/05/16 09/05/16 09/05/16 04:05 04:05 05:38 WBC RBC Hgb Hct MCV 76 L D MCH 23 L MCHC RDW 17.8 H Plt Count Lymph % (Auto) [place] % (Auto) Lymph # [place] # Baso # Seg Neutrophils % Seg Neuts % (Manual) Lymphocytes % (Manual) Monocytes % (Manual) Eosinophils % (Manual) Basophils % (Manual) Nucleated RBC % Seg Neutrophils # Seg Neutrophils # Man Lymphocytes # (Manual) Monocytes # (Manual) Eosinophils # (Manual) Basophils # (Manual) PT INR Fibrinogen dRVVT Confirm Interp Factor V Activity POC ABG pH POC ABG pCO2 POC ABG pO2 ABG pO2 ABG HCO3 ABG Base Excess ABG Hemoglobin Oxyhemoglobin Sodium 134 L Potassium Chloride Carbon Dioxide 18 L BUN Creatinine 1.8 H Glucose 192 H POC Glucose 175 H Lactic Acid Calcium Phosphorus Magnesium Direct Bilirubin AST ALT Alkaline Phosphatase Lactate Dehydrogenase Troponin T C-Reactive Protein Total Protein Albumin Prealbumin Triglycerides Cholesterol LDL Cholesterol Direct HDL Cholesterol Urine pH Urine WBC (Auto) Urine Creatinine Urine Total Protein Fluid Total Protein Vancomycin Trough Rheumatoid Factor Complement C4 Miscellaneous Test Crossmatch 09/05/16 09/05/16 09/05/16 11:38 17:48 23:22 WBC RBC Hgb Hct MCV MCH MCHC RDW Plt Count Lymph % (Auto) [place] % (Auto) Lymph # [place] # Baso # Seg Neutrophils % Seg Neuts % (Manual) Lymphocytes % (Manual) Monocytes % (Manual) Eosinophils % (Manual) Basophils % (Manual) Nucleated RBC % Seg Neutrophils # Seg Neutrophils # Man Lymphocytes # (Manual) Monocytes # (Manual) Eosinophils # (Manual) Basophils # (Manual) PT INR Fibrinogen dRVVT Confirm Interp Factor V Activity POC ABG pH POC ABG pCO2 POC ABG pO2 ABG pO2 ABG HCO3 ABG Base Excess ABG Hemoglobin Oxyhemoglobin Sodium Potassium Chloride Carbon Dioxide BUN Creatinine Glucose POC Glucose 164 H 186 H 195 H Lactic Acid Calcium Phosphorus Magnesium Direct Bilirubin AST ALT Alkaline Phosphatase Lactate Dehydrogenase Troponin T C-Reactive Protein Total Protein Albumin Prealbumin Triglycerides Cholesterol LDL Cholesterol Direct HDL Cholesterol Urine pH Urine WBC (Auto) Urine Creatinine Urine Total Protein Fluid Total Protein Vancomycin Trough Rheumatoid Factor Complement C4 Miscellaneous Test Crossmatch 09/06/16 09/06/16 09/06/16 04:12 05:59 07:32 WBC RBC Hgb Hct MCV MCH MCHC RDW Plt Count Lymph % (Auto) [place] % (Auto) Lymph # [place] # Baso # Seg Neutrophils % Seg Neuts % (Manual) Lymphocytes % (Manual) Monocytes % (Manual) Eosinophils % (Manual) Basophils % (Manual) Nucleated RBC % Seg Neutrophils # Seg Neutrophils # Man Lymphocytes # (Manual) Monocytes # (Manual) Eosinophils # (Manual) Basophils # (Manual) PT INR Fibrinogen dRVVT Confirm Interp Factor V Activity POC ABG pH 7.514 H POC ABG pCO2 29.1 L POC ABG pO2 72 L ABG pO2 ABG HCO3 ABG Base Excess ABG Hemoglobin Oxyhemoglobin Sodium 133 L Potassium 3.4 L Chloride 94.9 L Carbon Dioxide 19 L BUN 30 H Creatinine 2.1 H Glucose 139 H POC Glucose 146 H Lactic Acid Calcium Phosphorus Magnesium Direct Bilirubin AST ALT Alkaline Phosphatase Lactate Dehydrogenase Troponin T C-Reactive Protein Total Protein Albumin Prealbumin Triglycerides Cholesterol LDL Cholesterol Direct HDL Cholesterol Urine pH Urine WBC (Auto) Urine Creatinine Urine Total Protein Fluid Total Protein Vancomycin Trough Rheumatoid Factor Complement C4 Miscellaneous Test Crossmatch 09/06/16 09/06/16 09/06/16 11:57 17:58 19:02 WBC RBC Hgb Hct MCV MCH MCHC RDW Plt Count Lymph % (Auto) [place] % (Auto) Lymph # [place] # Baso # Seg Neutrophils % Seg Neuts % (Manual) Lymphocytes % (Manual) Monocytes % (Manual) Eosinophils % (Manual) Basophils % (Manual) Nucleated RBC % Seg Neutrophils # Seg Neutrophils # Man Lymphocytes # (Manual) Monocytes # (Manual) Eosinophils # (Manual) Basophils # (Manual) PT INR Fibrinogen dRVVT Confirm Interp Factor V Activity POC ABG pH 7.465 H POC ABG pCO2 32.0 L POC ABG pO2 ABG pO2 ABG HCO3 ABG Base Excess ABG Hemoglobin Oxyhemoglobin Sodium Potassium Chloride Carbon Dioxide BUN Creatinine Glucose POC Glucose 165 H 160 H Lactic Acid Calcium Phosphorus Magnesium Direct Bilirubin AST ALT Alkaline Phosphatase Lactate Dehydrogenase Troponin T C-Reactive Protein Total Protein Albumin Prealbumin Triglycerides Cholesterol LDL Cholesterol Direct HDL Cholesterol Urine pH Urine WBC (Auto) Urine Creatinine Urine Total Protein Fluid Total Protein Vancomycin Trough Rheumatoid Factor Complement C4 Miscellaneous Test Crossmatch 09/06/16 09/07/16 09/07/16 23:45 02:47 02:47 WBC RBC Hgb Hct MCV MCH MCHC RDW Plt Count Lymph % (Auto) [place] % (Auto) Lymph # [place] # Baso # Seg Neutrophils % Seg Neuts % (Manual) Lymphocytes % (Manual) Monocytes % (Manual) Eosinophils % (Manual) Basophils % (Manual) Nucleated RBC % Seg Neutrophils # Seg Neutrophils # Man Lymphocytes # (Manual) Monocytes # (Manual) Eosinophils # (Manual) Basophils # (Manual) PT INR Fibrinogen dRVVT Confirm Interp Factor V Activity POC ABG pH POC ABG pCO2 POC ABG pO2 ABG pO2 ABG HCO3 ABG Base Excess ABG Hemoglobin Oxyhemoglobin Sodium Potassium Chloride Carbon Dioxide BUN Creatinine Glucose POC Glucose 204 H Lactic Acid Calcium Phosphorus Magnesium Direct Bilirubin AST ALT Alkaline Phosphatase Lactate Dehydrogenase Troponin T C-Reactive Protein Total Protein Albumin Prealbumin Triglycerides Cholesterol LDL Cholesterol Direct HDL Cholesterol Urine pH Urine WBC (Auto) 68.0 H Urine Creatinine 106.1 H Urine Total Protein Fluid Total Protein Vancomycin Trough Rheumatoid Factor Complement C4 Miscellaneous Test Crossmatch 09/07/16 09/07/16 09/07/16 04:50 06:19 06:39 WBC RBC Hgb Hct MCV MCH MCHC RDW Plt Count Lymph % (Auto) [place] % (Auto) Lymph # [place] # Baso # Seg Neutrophils % Seg Neuts % (Manual) Lymphocytes % (Manual) Monocytes % (Manual) Eosinophils % (Manual) Basophils % (Manual) Nucleated RBC % Seg Neutrophils # Seg Neutrophils # Man Lymphocytes # (Manual) Monocytes # (Manual) Eosinophils # (Manual) Basophils # (Manual) PT INR Fibrinogen dRVVT Confirm Interp Factor V Activity POC ABG pH 7.457 H POC ABG pCO2 32.1 L POC ABG pO2 76 L ABG pO2 ABG HCO3 ABG Base Excess ABG Hemoglobin Oxyhemoglobin Sodium 132 L Potassium Chloride 94.7 L Carbon Dioxide BUN 53 H Creatinine 2.9 H Glucose 151 H POC Glucose 149 H Lactic Acid Calcium Phosphorus Magnesium Direct Bilirubin AST ALT Alkaline Phosphatase Lactate Dehydrogenase Troponin T C-Reactive Protein Total Protein Albumin Prealbumin Triglycerides Cholesterol LDL Cholesterol Direct HDL Cholesterol Urine pH Urine WBC (Auto) Urine Creatinine Urine Total Protein Fluid Total Protein Vancomycin Trough Rheumatoid Factor Complement C4 Miscellaneous Test Crossmatch 09/07/16 09/07/16 09/07/16 09:20 11:43 11:43 WBC 19.4 H RBC Hgb 8.3 L Hct 26.4 L D MCV 72 L D MCH 22 L MCHC RDW 17.9 H Plt Count Lymph % (Auto) 8.5 L [place] % (Auto) Lymph # [place] # 1.0 H Baso # Seg Neutrophils % 85.8 H Seg Neuts % (Manual) Lymphocytes % (Manual) Monocytes % (Manual) Eosinophils % (Manual) Basophils % (Manual) Nucleated RBC % Seg Neutrophils # 16.6 H Seg Neutrophils # Man Lymphocytes # (Manual) Monocytes # (Manual) Eosinophils # (Manual) Basophils # (Manual) PT INR Fibrinogen dRVVT Confirm Interp Factor V Activity POC ABG pH POC ABG pCO2 POC ABG pO2 ABG pO2 ABG HCO3 ABG Base Excess ABG Hemoglobin Oxyhemoglobin Sodium 134 L Potassium Chloride 97.2 L Carbon Dioxide 20 L BUN 58 H Creatinine 2.9 H Glucose 147 H POC Glucose Lactic Acid Calcium Phosphorus 2.40 L Magnesium 2.40 H Direct Bilirubin AST ALT Alkaline Phosphatase Lactate Dehydrogenase Troponin T C-Reactive Protein Total Protein 5.8 L Albumin 2.2 L Prealbumin Triglycerides Cholesterol LDL Cholesterol Direct HDL Cholesterol Urine pH Urine WBC (Auto) Urine Creatinine Urine Total Protein Fluid Total Protein Vancomycin Trough Rheumatoid Factor Complement C4 58 H Miscellaneous Test Crossmatch 09/07/16 09/07/16 09/07/16 11:50 16:00 17:31 WBC RBC Hgb Hct MCV MCH MCHC RDW Plt Count Lymph % (Auto) [place] % (Auto) Lymph # [place] # Baso # Seg Neutrophils % Seg Neuts % (Manual) Lymphocytes % (Manual) Monocytes % (Manual) Eosinophils % (Manual) Basophils % (Manual) Nucleated RBC % Seg Neutrophils # Seg Neutrophils # Man Lymphocytes # (Manual) Monocytes # (Manual) Eosinophils # (Manual) Basophils # (Manual) PT INR Fibrinogen dRVVT Confirm Interp Factor V Activity POC ABG pH POC ABG pCO2 POC ABG pO2 158 H ABG pO2 ABG HCO3 ABG Base Excess ABG Hemoglobin Oxyhemoglobin Sodium Potassium Chloride Carbon Dioxide BUN Creatinine Glucose POC Glucose 175 H Lactic Acid Calcium Phosphorus Magnesium Direct Bilirubin AST ALT Alkaline Phosphatase Lactate Dehydrogenase Troponin T C-Reactive Protein Total Protein Albumin Prealbumin Triglycerides Cholesterol LDL Cholesterol Direct HDL Cholesterol Urine pH Urine WBC (Auto) Urine Creatinine 66.3 H Urine Total Protein Fluid Total Protein Vancomycin Trough Rheumatoid Factor Complement C4 Miscellaneous Test Crossmatch 09/07/16 09/08/16 09/08/16 23:50 05:46 06:18 WBC 17.8 H RBC 3.58 L Hgb 8.1 L Hct 25.5 L MCV 71 L MCH 23 L MCHC RDW 18.4 H Plt Count Lymph % (Auto) [place] % (Auto) Lymph # [place] # Baso # Seg Neutrophils % Seg Neuts % (Manual) 92.0 H Lymphocytes % (Manual) 6.0 L Monocytes % (Manual) Eosinophils % (Manual) Basophils % (Manual) Nucleated RBC % Seg Neutrophils # Seg Neutrophils # Man 16.4 H Lymphocytes # (Manual) 1.1 L Monocytes # (Manual) Eosinophils # (Manual) Basophils # (Manual) PT INR Fibrinogen dRVVT Confirm Interp Factor V Activity POC ABG pH POC ABG pCO2 34.3 L POC ABG pO2 71 L ABG pO2 ABG HCO3 ABG Base Excess ABG Hemoglobin Oxyhemoglobin Sodium Potassium Chloride Carbon Dioxide BUN Creatinine Glucose POC Glucose 216 H Lactic Acid Calcium Phosphorus Magnesium Direct Bilirubin AST ALT Alkaline Phosphatase Lactate Dehydrogenase Troponin T C-Reactive Protein Total Protein Albumin Prealbumin Triglycerides Cholesterol LDL Cholesterol Direct HDL Cholesterol Urine pH Urine WBC (Auto) Urine Creatinine Urine Total Protein Fluid Total Protein Vancomycin Trough Rheumatoid Factor Complement C4 Miscellaneous Test Crossmatch 09/08/16 09/08/16 09/08/16 06:18 06:51 10:55 WBC RBC Hgb Hct MCV MCH MCHC RDW Plt Count Lymph % (Auto) [place] % (Auto) Lymph # [place] # Baso # Seg Neutrophils % Seg Neuts % (Manual) Lymphocytes % (Manual) Monocytes % (Manual) Eosinophils % (Manual) Basophils % (Manual) Nucleated RBC % Seg Neutrophils # Seg Neutrophils # Man Lymphocytes # (Manual) Monocytes # (Manual) Eosinophils # (Manual) Basophils # (Manual) PT INR Fibrinogen dRVVT Confirm Interp Factor V Activity POC ABG pH POC ABG pCO2 POC ABG pO2 ABG pO2 ABG HCO3 ABG Base Excess ABG Hemoglobin Oxyhemoglobin Sodium 133 L Potassium Chloride 96.9 L Carbon Dioxide 20 L BUN 63 H Creatinine 2.7 H Glucose 195 H POC Glucose 204 H 169 H Lactic Acid Calcium Phosphorus Magnesium Direct Bilirubin AST ALT Alkaline Phosphatase Lactate Dehydrogenase Troponin T C-Reactive Protein Total Protein Albumin Prealbumin Triglycerides Cholesterol LDL Cholesterol Direct HDL Cholesterol Urine pH Urine WBC (Auto) Urine Creatinine Urine Total Protein Fluid Total Protein Vancomycin Trough Rheumatoid Factor Complement C4 Miscellaneous Test Crossmatch 09/08/16 09/08/16 09/08/16 11:48 11:48 11:48 WBC RBC Hgb Hct MCV MCH MCHC RDW Plt Count Lymph % (Auto) [place] % (Auto) Lymph # [place] # Baso # Seg Neutrophils % Seg Neuts % (Manual) Lymphocytes % (Manual) Monocytes % (Manual) Eosinophils % (Manual) Basophils % (Manual) Nucleated RBC % Seg Neutrophils # Seg Neutrophils # Man Lymphocytes # (Manual) Monocytes # (Manual) Eosinophils # (Manual) Basophils # (Manual) PT INR Fibrinogen 750 H dRVVT Confirm Interp Factor V Activity POC ABG pH POC ABG pCO2 POC ABG pO2 ABG pO2 ABG HCO3 ABG Base Excess ABG Hemoglobin Oxyhemoglobin Sodium Potassium Chloride Carbon Dioxide BUN Creatinine Glucose POC Glucose Lactic Acid Calcium Phosphorus Magnesium Direct Bilirubin AST ALT Alkaline Phosphatase Lactate Dehydrogenase Troponin T C-Reactive Protein 15.70 H Total Protein Albumin Prealbumin Triglycerides Cholesterol LDL Cholesterol Direct HDL Cholesterol Urine pH Urine WBC (Auto) Urine Creatinine Urine Total Protein Fluid Total Protein Vancomycin Trough Rheumatoid Factor 24 H Complement C4 Miscellaneous Test Crossmatch 09/08/16 09/08/16 09/09/16 15:35 18:25 00:24 WBC RBC Hgb Hct MCV MCH MCHC RDW Plt Count Lymph % (Auto) [place] % (Auto) Lymph # [place] # Baso # Seg Neutrophils % Seg Neuts % (Manual) Lymphocytes % (Manual) Monocytes % (Manual) Eosinophils % (Manual) Basophils % (Manual) Nucleated RBC % Seg Neutrophils # Seg Neutrophils # Man Lymphocytes # (Manual) Monocytes # (Manual) Eosinophils # (Manual) Basophils # (Manual) PT INR Fibrinogen dRVVT Confirm Interp Factor V Activity 182 H POC ABG pH POC ABG pCO2 POC ABG pO2 ABG pO2 ABG HCO3 ABG Base Excess ABG Hemoglobin Oxyhemoglobin Sodium Potassium Chloride Carbon Dioxide BUN Creatinine Glucose POC Glucose 184 H 216 H Lactic Acid Calcium Phosphorus Magnesium Direct Bilirubin AST ALT Alkaline Phosphatase Lactate Dehydrogenase Troponin T C-Reactive Protein Total Protein Albumin Prealbumin Triglycerides Cholesterol LDL Cholesterol Direct HDL Cholesterol Urine pH Urine WBC (Auto) Urine Creatinine Urine Total Protein Fluid Total Protein Vancomycin Trough Rheumatoid Factor Complement C4 Miscellaneous Test Crossmatch 09/09/16 09/09/16 09/09/16 03:00 03:00 04:04 WBC 27.9 H RBC Hgb 8.7 L Hct 28.1 L MCV 72 L MCH 22 L MCHC RDW 18.4 H Plt Count 485 H Lymph % (Auto) [place] % (Auto) Lymph # [place] # Baso # Seg Neutrophils % Seg Neuts % (Manual) 77.0 H Lymphocytes % (Manual) 9.0 L Monocytes % (Manual) Eosinophils % (Manual) Basophils % (Manual) Nucleated RBC % Seg Neutrophils # Seg Neutrophils # Man 21.5 H Lymphocytes # (Manual) Monocytes # (Manual) 2.0 H Eosinophils # (Manual) Basophils # (Manual) PT INR Fibrinogen dRVVT Confirm Interp Factor V Activity POC ABG pH POC ABG pCO2 POC ABG pO2 121 H ABG pO2 ABG HCO3 ABG Base Excess ABG Hemoglobin Oxyhemoglobin Sodium 135 L Potassium Chloride 96.3 L Carbon Dioxide 21 L BUN 83 H Creatinine 3.0 H Glucose 135 H POC Glucose Lactic Acid Calcium Phosphorus Magnesium Direct Bilirubin AST ALT Alkaline Phosphatase Lactate Dehydrogenase Troponin T C-Reactive Protein Total Protein Albumin Prealbumin Triglycerides Cholesterol LDL Cholesterol Direct HDL Cholesterol Urine pH Urine WBC (Auto) Urine Creatinine Urine Total Protein Fluid Total Protein Vancomycin Trough Rheumatoid Factor Complement C4 Miscellaneous Test Crossmatch 09/09/16 09/09/16 09/09/16 05:41 11:55 14:13 WBC RBC Hgb Hct MCV MCH MCHC RDW Plt Count Lymph % (Auto) [place] % (Auto) Lymph # [place] # Baso # Seg Neutrophils % Seg Neuts % (Manual) Lymphocytes % (Manual) Monocytes % (Manual) Eosinophils % (Manual) Basophils % (Manual) Nucleated RBC % Seg Neutrophils # Seg Neutrophils # Man Lymphocytes # (Manual) Monocytes # (Manual) Eosinophils # (Manual) Basophils # (Manual) PT INR Fibrinogen dRVVT Confirm Interp Factor V Activity POC ABG pH POC ABG pCO2 POC ABG pO2 ABG pO2 ABG HCO3 ABG Base Excess ABG Hemoglobin Oxyhemoglobin Sodium Potassium Chloride Carbon Dioxide BUN Creatinine Glucose POC Glucose 155 H 186 H Lactic Acid Calcium Phosphorus Magnesium Direct Bilirubin AST ALT Alkaline Phosphatase Lactate Dehydrogenase Troponin T C-Reactive Protein Total Protein Albumin Prealbumin Triglycerides Cholesterol LDL Cholesterol Direct HDL Cholesterol Urine pH Urine WBC (Auto) 25.0 H Urine Creatinine Urine Total Protein Fluid Total Protein Vancomycin Trough Rheumatoid Factor Complement C4 Miscellaneous Test Crossmatch 09/09/16 09/09/16 09/10/16 17:33 23:13 05:09 WBC RBC Hgb Hct MCV MCH MCHC RDW Plt Count Lymph % (Auto) [place] % (Auto) Lymph # [place] # Baso # Seg Neutrophils % Seg Neuts % (Manual) Lymphocytes % (Manual) Monocytes % (Manual) Eosinophils % (Manual) Basophils % (Manual) Nucleated RBC % Seg Neutrophils # Seg Neutrophils # Man Lymphocytes # (Manual) Monocytes # (Manual) Eosinophils # (Manual) Basophils # (Manual) PT INR Fibrinogen dRVVT Confirm Interp Factor V Activity POC ABG pH POC ABG pCO2 POC ABG pO2 74 L ABG pO2 ABG HCO3 ABG Base Excess ABG Hemoglobin Oxyhemoglobin Sodium Potassium Chloride Carbon Dioxide BUN Creatinine Glucose POC Glucose 211 H 215 H Lactic Acid Calcium Phosphorus Magnesium Direct Bilirubin AST ALT Alkaline Phosphatase Lactate Dehydrogenase Troponin T C-Reactive Protein Total Protein Albumin Prealbumin Triglycerides Cholesterol LDL Cholesterol Direct HDL Cholesterol Urine pH Urine WBC (Auto) Urine Creatinine Urine Total Protein Fluid Total Protein Vancomycin Trough Rheumatoid Factor Complement C4 Miscellaneous Test Crossmatch 09/10/16 09/10/16 09/10/16 05:17 05:17 11:31 WBC 15.8 H RBC 3.25 L Hgb 7.3 L Hct 22.9 L MCV 71 L MCH 23 L MCHC RDW 18.4 H Plt Count Lymph % (Auto) [place] % (Auto) Lymph # [place] # Baso # Seg Neutrophils % Seg Neuts % (Manual) 91.0 H Lymphocytes % (Manual) 4.0 L Monocytes % (Manual) Eosinophils % (Manual) Basophils % (Manual) Nucleated RBC % Seg Neutrophils # Seg Neutrophils # Man 14.4 H Lymphocytes # (Manual) 0.6 L Monocytes # (Manual) Eosinophils # (Manual) Basophils # (Manual) PT INR Fibrinogen dRVVT Confirm Interp Factor V Activity POC ABG pH POC ABG pCO2 POC ABG pO2 ABG pO2 ABG HCO3 ABG Base Excess ABG Hemoglobin Oxyhemoglobin Sodium Potassium Chloride Carbon Dioxide 21 L BUN 93 H Creatinine 2.9 H Glucose 146 H POC Glucose 188 H Lactic Acid Calcium 8.1 L Phosphorus Magnesium Direct Bilirubin AST ALT Alkaline Phosphatase Lactate Dehydrogenase Troponin T C-Reactive Protein Total Protein Albumin Prealbumin Triglycerides Cholesterol LDL Cholesterol Direct HDL Cholesterol Urine pH Urine WBC (Auto) Urine Creatinine Urine Total Protein Fluid Total Protein Vancomycin Trough Rheumatoid Factor Complement C4 Miscellaneous Test Crossmatch 09/10/16 09/10/16 09/10/16 13:17 17:20 23:32 WBC RBC Hgb Hct MCV MCH MCHC RDW Plt Count Lymph % (Auto) [place] % (Auto) Lymph # [place] # Baso # Seg Neutrophils % Seg Neuts % (Manual) Lymphocytes % (Manual) Monocytes % (Manual) Eosinophils % (Manual) Basophils % (Manual) Nucleated RBC % Seg Neutrophils # Seg Neutrophils # Man Lymphocytes # (Manual) Monocytes # (Manual) Eosinophils # (Manual) Basophils # (Manual) PT INR Fibrinogen dRVVT Confirm Interp Factor V Activity POC ABG pH POC ABG pCO2 POC ABG pO2 ABG pO2 ABG HCO3 ABG Base Excess ABG Hemoglobin Oxyhemoglobin Sodium Potassium Chloride Carbon Dioxide BUN Creatinine Glucose POC Glucose 199 H 186 H Lactic Acid Calcium Phosphorus Magnesium Direct Bilirubin AST ALT Alkaline Phosphatase Lactate Dehydrogenase Troponin T C-Reactive Protein Total Protein Albumin Prealbumin Triglycerides Cholesterol LDL Cholesterol Direct HDL Cholesterol Urine pH Urine WBC (Auto) Urine Creatinine Urine Total Protein Fluid Total Protein Vancomycin Trough Rheumatoid Factor Complement C4 Miscellaneous Test Crossmatch See Detail 09/11/16 09/11/16 09/11/16 05:10 05:10 05:17 WBC 28.4 H RBC Hgb 9.2 L Hct 29.3 L D MCV 73 L MCH 23 L MCHC RDW 18.9 H Plt Count 452 H Lymph % (Auto) [place] % (Auto) Lymph # [place] # Baso # Seg Neutrophils % Seg Neuts % (Manual) 89.5 H Lymphocytes % (Manual) 2.0 L Monocytes % (Manual) Eosinophils % (Manual) Basophils % (Manual) Nucleated RBC % Seg Neutrophils # Seg Neutrophils # Man 25.4 H Lymphocytes # (Manual) 0.6 L Monocytes # (Manual) 1.3 H Eosinophils # (Manual) Basophils # (Manual) PT INR Fibrinogen dRVVT Confirm Interp Factor V Activity POC ABG pH POC ABG pCO2 POC ABG pO2 ABG pO2 ABG HCO3 ABG Base Excess ABG Hemoglobin Oxyhemoglobin Sodium 136 L Potassium Chloride Carbon Dioxide 18 L BUN 107 H Creatinine 2.6 H Glucose 187 H POC Glucose 230 H Lactic Acid Calcium 8.3 L Phosphorus Magnesium Direct Bilirubin AST ALT Alkaline Phosphatase Lactate Dehydrogenase Troponin T C-Reactive Protein Total Protein Albumin Prealbumin Triglycerides Cholesterol LDL Cholesterol Direct HDL Cholesterol Urine pH Urine WBC (Auto) Urine Creatinine Urine Total Protein Fluid Total Protein Vancomycin Trough Rheumatoid Factor Complement C4 Miscellaneous Test Crossmatch 09/11/16 09/11/16 09/11/16 05:55 12:02 17:32 WBC RBC Hgb Hct MCV MCH MCHC RDW Plt Count Lymph % (Auto) [place] % (Auto) Lymph # [place] # Baso # Seg Neutrophils % Seg Neuts % (Manual) Lymphocytes % (Manual) Monocytes % (Manual) Eosinophils % (Manual) Basophils % (Manual) Nucleated RBC % Seg Neutrophils # Seg Neutrophils # Man Lymphocytes # (Manual) Monocytes # (Manual) Eosinophils # (Manual) Basophils # (Manual) PT INR Fibrinogen dRVVT Confirm Interp Factor V Activity POC ABG pH POC ABG pCO2 33.8 L POC ABG pO2 ABG pO2 ABG HCO3 ABG Base Excess ABG Hemoglobin Oxyhemoglobin Sodium Potassium Chloride Carbon Dioxide BUN Creatinine Glucose POC Glucose 191 H 239 H Lactic Acid Calcium Phosphorus Magnesium Direct Bilirubin AST ALT Alkaline Phosphatase Lactate Dehydrogenase Troponin T C-Reactive Protein Total Protein Albumin Prealbumin Triglycerides Cholesterol LDL Cholesterol Direct HDL Cholesterol Urine pH Urine WBC (Auto) Urine Creatinine Urine Total Protein Fluid Total Protein Vancomycin Trough Rheumatoid Factor Complement C4 Miscellaneous Test Crossmatch 09/11/16 09/12/16 09/12/16 23:52 05:09 05:32 WBC RBC Hgb Hct MCV MCH MCHC RDW Plt Count Lymph % (Auto) [place] % (Auto) Lymph # [place] # Baso # Seg Neutrophils % Seg Neuts % (Manual) Lymphocytes % (Manual) Monocytes % (Manual) Eosinophils % (Manual) Basophils % (Manual) Nucleated RBC % Seg Neutrophils # Seg Neutrophils # Man Lymphocytes # (Manual) Monocytes # (Manual) Eosinophils # (Manual) Basophils # (Manual) PT INR Fibrinogen dRVVT Confirm Interp Factor V Activity POC ABG pH POC ABG pCO2 34.6 L POC ABG pO2 ABG pO2 ABG HCO3 ABG Base Excess ABG Hemoglobin Oxyhemoglobin Sodium Potassium Chloride Carbon Dioxide BUN Creatinine Glucose POC Glucose 265 H 184 H Lactic Acid Calcium Phosphorus Magnesium Direct Bilirubin AST ALT Alkaline Phosphatase Lactate Dehydrogenase Troponin T C-Reactive Protein Total Protein Albumin Prealbumin Triglycerides Cholesterol LDL Cholesterol Direct HDL Cholesterol Urine pH Urine WBC (Auto) Urine Creatinine Urine Total Protein Fluid Total Protein Vancomycin Trough Rheumatoid Factor Complement C4 Miscellaneous Test Crossmatch 09/12/16 09/12/16 09/12/16 06:45 06:45 07:22 WBC 31.7 H RBC 3.54 L Hgb 8.3 L Hct 25.9 L MCV 73 L MCH 23 L MCHC RDW 18.9 H Plt Count Lymph % (Auto) [place] % (Auto) Lymph # [place] # Baso # Seg Neutrophils % Seg Neuts % (Manual) 88.5 H Lymphocytes % (Manual) 4.5 L Monocytes % (Manual) Eosinophils % (Manual) Basophils % (Manual) Nucleated RBC % Seg Neutrophils # Seg Neutrophils # Man 28.1 H Lymphocytes # (Manual) Monocytes # (Manual) 1.0 H Eosinophils # (Manual) Basophils # (Manual) PT INR Fibrinogen dRVVT Confirm Interp Factor V Activity POC ABG pH POC ABG pCO2 POC ABG pO2 ABG pO2 ABG HCO3 ABG Base Excess ABG Hemoglobin Oxyhemoglobin Sodium Potassium Chloride Carbon Dioxide 20 L BUN 115 H Creatinine 2.7 H Glucose 165 H POC Glucose Lactic Acid Calcium 8.0 L Phosphorus Magnesium Direct Bilirubin AST ALT Alkaline Phosphatase Lactate Dehydrogenase Troponin T C-Reactive Protein Total Protein Albumin Prealbumin Triglycerides 217 H Cholesterol LDL Cholesterol Direct HDL Cholesterol Urine pH Urine WBC (Auto) Urine Creatinine Urine Total Protein Fluid Total Protein Vancomycin Trough Rheumatoid Factor Complement C4 Miscellaneous Test Crossmatch 09/12/16 09/12/16 09/12/16 07:22 09:59 12:21 WBC RBC Hgb Hct MCV MCH MCHC RDW Plt Count Lymph % (Auto) [place] % (Auto) Lymph # [place] # Baso # Seg Neutrophils % Seg Neuts % (Manual) Lymphocytes % (Manual) Monocytes % (Manual) Eosinophils % (Manual) Basophils % (Manual) Nucleated RBC % Seg Neutrophils # Seg Neutrophils # Man Lymphocytes # (Manual) Monocytes # (Manual) Eosinophils # (Manual) Basophils # (Manual) PT INR Fibrinogen dRVVT Confirm Interp Positive H Factor V Activity POC ABG pH POC ABG pCO2 POC ABG pO2 ABG pO2 ABG HCO3 ABG Base Excess ABG Hemoglobin Oxyhemoglobin Sodium Potassium Chloride Carbon Dioxide BUN Creatinine Glucose POC Glucose 224 H Lactic Acid Calcium Phosphorus Magnesium Direct Bilirubin AST ALT Alkaline Phosphatase Lactate Dehydrogenase Troponin T C-Reactive Protein 1.70 H Total Protein Albumin Prealbumin Triglycerides Cholesterol LDL Cholesterol Direct HDL Cholesterol Urine pH Urine WBC (Auto) Urine Creatinine Urine Total Protein Fluid Total Protein Vancomycin Trough Rheumatoid Factor Complement C4 Miscellaneous Test Crossmatch 09/12/16 09/12/16 09/13/16 16:51 23:28 04:00 WBC 45.0 H* RBC Hgb 9.4 L Hct MCV 75 L MCH 23 L MCHC RDW 19.0 H Plt Count 470 H Lymph % (Auto) [place] % (Auto) Lymph # [place] # Baso # Seg Neutrophils % Seg Neuts % (Manual) 89.0 H Lymphocytes % (Manual) 5.0 L Monocytes % (Manual) Eosinophils % (Manual) Basophils % (Manual) Nucleated RBC % Seg Neutrophils # Seg Neutrophils # Man 40.1 H Lymphocytes # (Manual) Monocytes # (Manual) Eosinophils # (Manual) Basophils # (Manual) PT INR Fibrinogen dRVVT Confirm Interp Factor V Activity POC ABG pH POC ABG pCO2 POC ABG pO2 ABG pO2 ABG HCO3 ABG Base Excess ABG Hemoglobin Oxyhemoglobin Sodium Potassium Chloride Carbon Dioxide BUN Creatinine Glucose POC Glucose 169 H 150 H Lactic Acid Calcium Phosphorus Magnesium Direct Bilirubin AST ALT Alkaline Phosphatase Lactate Dehydrogenase Troponin T C-Reactive Protein Total Protein Albumin Prealbumin Triglycerides Cholesterol LDL Cholesterol Direct HDL Cholesterol Urine pH Urine WBC (Auto) Urine Creatinine Urine Total Protein Fluid Total Protein Vancomycin Trough Rheumatoid Factor Complement C4 Miscellaneous Test Crossmatch 09/13/16 09/13/16 09/13/16 04:00 11:26 17:31 WBC RBC Hgb Hct MCV MCH MCHC RDW Plt Count Lymph % (Auto) [place] % (Auto) Lymph # [place] # Baso # Seg Neutrophils % Seg Neuts % (Manual) Lymphocytes % (Manual) Monocytes % (Manual) Eosinophils % (Manual) Basophils % (Manual) Nucleated RBC % Seg Neutrophils # Seg Neutrophils # Man Lymphocytes # (Manual) Monocytes # (Manual) Eosinophils # (Manual) Basophils # (Manual) PT INR Fibrinogen dRVVT Confirm Interp Factor V Activity POC ABG pH POC ABG pCO2 POC ABG pO2 ABG pO2 ABG HCO3 ABG Base Excess ABG Hemoglobin Oxyhemoglobin Sodium Potassium Chloride Carbon Dioxide 20 L BUN 116 H Creatinine 3.0 H Glucose 172 H POC Glucose 140 H 183 H Lactic Acid Calcium Phosphorus Magnesium Direct Bilirubin AST ALT Alkaline Phosphatase Lactate Dehydrogenase Troponin T C-Reactive Protein Total Protein 6.2 L Albumin 2.9 L Prealbumin Triglycerides Cholesterol LDL Cholesterol Direct HDL Cholesterol Urine pH Urine WBC (Auto) Urine Creatinine Urine Total Protein Fluid Total Protein Vancomycin Trough Rheumatoid Factor Complement C4 Miscellaneous Test Crossmatch 09/13/16 09/14/16 09/14/16 23:23 04:06 04:07 WBC 29.4 H RBC Hgb 8.9 L Hct 27.3 L MCV 75 L MCH 24 L MCHC RDW 19.1 H Plt Count Lymph % (Auto) [place] % (Auto) Lymph # [place] # Baso # Seg Neutrophils % Seg Neuts % (Manual) 84.0 H Lymphocytes % (Manual) 6.0 L Monocytes % (Manual) 9.0 H Eosinophils % (Manual) Basophils % (Manual) Nucleated RBC % Seg Neutrophils # Seg Neutrophils # Man 24.7 H Lymphocytes # (Manual) Monocytes # (Manual) 2.6 H Eosinophils # (Manual) Basophils # (Manual) PT INR Fibrinogen dRVVT Confirm Interp Factor V Activity POC ABG pH 7.342 L POC ABG pCO2 POC ABG pO2 116 H ABG pO2 ABG HCO3 ABG Base Excess ABG Hemoglobin Oxyhemoglobin Sodium Potassium Chloride Carbon Dioxide BUN Creatinine Glucose POC Glucose 154 H Lactic Acid Calcium Phosphorus Magnesium Direct Bilirubin AST ALT Alkaline Phosphatase Lactate Dehydrogenase Troponin T C-Reactive Protein Total Protein Albumin Prealbumin Triglycerides Cholesterol LDL Cholesterol Direct HDL Cholesterol Urine pH Urine WBC (Auto) Urine Creatinine Urine Total Protein Fluid Total Protein Vancomycin Trough Rheumatoid Factor Complement C4 Miscellaneous Test Crossmatch 09/14/16 09/14/16 09/14/16 04:07 05:29 12:19 WBC RBC Hgb Hct MCV MCH MCHC RDW Plt Count Lymph % (Auto) [place] % (Auto) Lymph # [place] # Baso # Seg Neutrophils % Seg Neuts % (Manual) Lymphocytes % (Manual) Monocytes % (Manual) Eosinophils % (Manual) Basophils % (Manual) Nucleated RBC % Seg Neutrophils # Seg Neutrophils # Man Lymphocytes # (Manual) Monocytes # (Manual) Eosinophils # (Manual) Basophils # (Manual) PT INR Fibrinogen dRVVT Confirm Interp Factor V Activity POC ABG pH POC ABG pCO2 POC ABG pO2 ABG pO2 ABG HCO3 ABG Base Excess ABG Hemoglobin Oxyhemoglobin Sodium 136 L Potassium Chloride Carbon Dioxide 18 L BUN 121 H Creatinine 2.8 H Glucose 214 H POC Glucose 239 H 181 H Lactic Acid Calcium Phosphorus Magnesium Direct Bilirubin AST ALT Alkaline Phosphatase Lactate Dehydrogenase Troponin T C-Reactive Protein Total Protein Albumin Prealbumin Triglycerides Cholesterol LDL Cholesterol Direct HDL Cholesterol Urine pH Urine WBC (Auto) Urine Creatinine Urine Total Protein Fluid Total Protein Vancomycin Trough Rheumatoid Factor Complement C4 Miscellaneous Test Crossmatch 09/14/16 09/14/16 09/15/16 18:12 23:37 05:00 WBC 26.1 H RBC 3.05 L Hgb 7.2 L Hct 22.9 L MCV 75 L MCH 24 L MCHC RDW 19.0 H Plt Count Lymph % (Auto) [place] % (Auto) Lymph # [place] # Baso # Seg Neutrophils % Seg Neuts % (Manual) Lymphocytes % (Manual) Monocytes % (Manual) Eosinophils % (Manual) Basophils % (Manual) Nucleated RBC % Seg Neutrophils # Seg Neutrophils # Man Lymphocytes # (Manual) Monocytes # (Manual) Eosinophils # (Manual) Basophils # (Manual) PT INR Fibrinogen dRVVT Confirm Interp Factor V Activity POC ABG pH POC ABG pCO2 POC ABG pO2 ABG pO2 ABG HCO3 ABG Base Excess ABG Hemoglobin Oxyhemoglobin Sodium Potassium Chloride Carbon Dioxide BUN Creatinine Glucose POC Glucose 266 H 154 H Lactic Acid Calcium Phosphorus Magnesium Direct Bilirubin AST ALT Alkaline Phosphatase Lactate Dehydrogenase Troponin T C-Reactive Protein Total Protein Albumin Prealbumin Triglycerides Cholesterol LDL Cholesterol Direct HDL Cholesterol Urine pH Urine WBC (Auto) Urine Creatinine Urine Total Protein Fluid Total Protein Vancomycin Trough Rheumatoid Factor Complement C4 Miscellaneous Test Crossmatch 09/15/16 09/15/16 09/15/16 05:00 05:17 12:45 WBC RBC Hgb Hct MCV MCH MCHC RDW Plt Count Lymph % (Auto) [place] % (Auto) Lymph # [place] # Baso # Seg Neutrophils % Seg Neuts % (Manual) Lymphocytes % (Manual) Monocytes % (Manual) Eosinophils % (Manual) Basophils % (Manual) Nucleated RBC % Seg Neutrophils # Seg Neutrophils # Man Lymphocytes # (Manual) Monocytes # (Manual) Eosinophils # (Manual) Basophils # (Manual) PT INR Fibrinogen dRVVT Confirm Interp Factor V Activity POC ABG pH POC ABG pCO2 POC ABG pO2 ABG pO2 ABG HCO3 ABG Base Excess ABG Hemoglobin Oxyhemoglobin Sodium Potassium 5.2 H Chloride Carbon Dioxide 18 L BUN 139 H Creatinine 3.7 H Glucose 227 H POC Glucose 226 H 244 H Lactic Acid Calcium 8.3 L Phosphorus Magnesium Direct Bilirubin AST ALT Alkaline Phosphatase Lactate Dehydrogenase Troponin T C-Reactive Protein Total Protein Albumin Prealbumin Triglycerides Cholesterol LDL Cholesterol Direct HDL Cholesterol Urine pH Urine WBC (Auto) Urine Creatinine Urine Total Protein Fluid Total Protein Vancomycin Trough Rheumatoid Factor Complement C4 Miscellaneous Test Crossmatch 09/15/16 09/15/16 09/15/16 14:32 17:33 23:35 WBC RBC Hgb Hct MCV MCH MCHC RDW Plt Count Lymph % (Auto) [place] % (Auto) Lymph # [place] # Baso # Seg Neutrophils % Seg Neuts % (Manual) Lymphocytes % (Manual) Monocytes % (Manual) Eosinophils % (Manual) Basophils % (Manual) Nucleated RBC % Seg Neutrophils # Seg Neutrophils # Man Lymphocytes # (Manual) Monocytes # (Manual) Eosinophils # (Manual) Basophils # (Manual) PT INR Fibrinogen dRVVT Confirm Interp Factor V Activity POC ABG pH POC ABG pCO2 27.7 L POC ABG pO2 120 H ABG pO2 ABG HCO3 ABG Base Excess ABG Hemoglobin Oxyhemoglobin Sodium Potassium Chloride Carbon Dioxide BUN Creatinine Glucose POC Glucose 232 H 167 H Lactic Acid Calcium Phosphorus Magnesium Direct Bilirubin AST ALT Alkaline Phosphatase Lactate Dehydrogenase Troponin T C-Reactive Protein Total Protein Albumin Prealbumin Triglycerides Cholesterol LDL Cholesterol Direct HDL Cholesterol Urine pH Urine WBC (Auto) Urine Creatinine Urine Total Protein Fluid Total Protein Vancomycin Trough Rheumatoid Factor Complement C4 Miscellaneous Test Crossmatch 09/16/16 09/16/16 09/16/16 03:58 10:27 10:27 WBC 19.0 H RBC 2.77 L Hgb 6.5 L Hct 20.9 L MCV 76 L MCH 23 L MCHC RDW 19.3 H Plt Count Lymph % (Auto) 11.0 L [place] % (Auto) Lymph # [place] # 1.1 H Baso # Seg Neutrophils % 82.5 H Seg Neuts % (Manual) Lymphocytes % (Manual) Monocytes % (Manual) Eosinophils % (Manual) Basophils % (Manual) Nucleated RBC % Seg Neutrophils # 15.7 H Seg Neutrophils # Man Lymphocytes # (Manual) Monocytes # (Manual) Eosinophils # (Manual) Basophils # (Manual) PT INR Fibrinogen dRVVT Confirm Interp Factor V Activity POC ABG pH POC ABG pCO2 POC ABG pO2 ABG pO2 ABG HCO3 ABG Base Excess ABG Hemoglobin Oxyhemoglobin Sodium Potassium Chloride 109.3 H Carbon Dioxide 18 L BUN 139 H Creatinine 4.1 H Glucose 144 H POC Glucose 146 H Lactic Acid Calcium 8.1 L Phosphorus Magnesium Direct Bilirubin AST ALT Alkaline Phosphatase Lactate Dehydrogenase Troponin T C-Reactive Protein Total Protein Albumin Prealbumin Triglycerides Cholesterol LDL Cholesterol Direct HDL Cholesterol Urine pH Urine WBC (Auto) Urine Creatinine Urine Total Protein Fluid Total Protein Vancomycin Trough Rheumatoid Factor Complement C4 Miscellaneous Test Crossmatch 09/16/16 09/16/16 09/16/16 12:04 12:10 13:55 WBC RBC Hgb Hct MCV MCH MCHC RDW Plt Count Lymph % (Auto) [place] % (Auto) Lymph # [place] # Baso # Seg Neutrophils % Seg Neuts % (Manual) Lymphocytes % (Manual) Monocytes % (Manual) Eosinophils % (Manual) Basophils % (Manual) Nucleated RBC % Seg Neutrophils # Seg Neutrophils # Man Lymphocytes # (Manual) Monocytes # (Manual) Eosinophils # (Manual) Basophils # (Manual) PT INR Fibrinogen dRVVT Confirm Interp Factor V Activity POC ABG pH POC ABG pCO2 32.9 L POC ABG pO2 ABG pO2 ABG HCO3 ABG Base Excess ABG Hemoglobin Oxyhemoglobin Sodium Potassium Chloride Carbon Dioxide BUN Creatinine Glucose POC Glucose 185 H Lactic Acid Calcium Phosphorus Magnesium Direct Bilirubin AST ALT Alkaline Phosphatase Lactate Dehydrogenase Troponin T C-Reactive Protein Total Protein Albumin Prealbumin Triglycerides Cholesterol LDL Cholesterol Direct HDL Cholesterol Urine pH Urine WBC (Auto) Urine Creatinine Urine Total Protein Fluid Total Protein Vancomycin Trough Rheumatoid Factor Complement C4 Miscellaneous Test Crossmatch See Detail 09/16/16 09/16/16 09/16/16 17:55 19:19 23:48 WBC RBC Hgb Hct MCV MCH MCHC RDW Plt Count Lymph % (Auto) [place] % (Auto) Lymph # [place] # Baso # Seg Neutrophils % Seg Neuts % (Manual) Lymphocytes % (Manual) Monocytes % (Manual) Eosinophils % (Manual) Basophils % (Manual) Nucleated RBC % Seg Neutrophils # Seg Neutrophils # Man Lymphocytes # (Manual) Monocytes # (Manual) Eosinophils # (Manual) Basophils # (Manual) PT INR Fibrinogen dRVVT Confirm Interp Factor V Activity POC ABG pH POC ABG pCO2 POC ABG pO2 ABG pO2 ABG HCO3 ABG Base Excess ABG Hemoglobin Oxyhemoglobin Sodium Potassium Chloride Carbon Dioxide BUN Creatinine Glucose POC Glucose 222 H 107 H Lactic Acid Calcium Phosphorus Magnesium Direct Bilirubin AST ALT Alkaline Phosphatase Lactate Dehydrogenase Troponin T C-Reactive Protein Total Protein Albumin Prealbumin Triglycerides Cholesterol LDL Cholesterol Direct HDL Cholesterol Urine pH Urine WBC (Auto) Urine Creatinine 47.4 H Urine Total Protein 16 H Fluid Total Protein Vancomycin Trough Rheumatoid Factor Complement C4 Miscellaneous Test Crossmatch 09/17/16 09/17/16 09/17/16 03:45 03:45 04:55 WBC 19.6 H RBC 3.41 L Hgb 8.5 L Hct 26.7 L MCV 78 L MCH 25 L MCHC RDW 19.9 H Plt Count Lymph % (Auto) 9.3 L [place] % (Auto) Lymph # [place] # 1.2 H Baso # Seg Neutrophils % 83.9 H Seg Neuts % (Manual) Lymphocytes % (Manual) Monocytes % (Manual) Eosinophils % (Manual) Basophils % (Manual) Nucleated RBC % Seg Neutrophils # 16.4 H Seg Neutrophils # Man Lymphocytes # (Manual) Monocytes # (Manual) Eosinophils # (Manual) Basophils # (Manual) PT INR Fibrinogen dRVVT Confirm Interp Factor V Activity POC ABG pH POC ABG pCO2 POC ABG pO2 ABG pO2 ABG HCO3 ABG Base Excess ABG Hemoglobin Oxyhemoglobin Sodium 146 H Potassium 5.1 H Chloride 110.9 H Carbon Dioxide 16 L BUN 146 H Creatinine 4.0 H Glucose 108 H POC Glucose 133 H Lactic Acid Calcium Phosphorus Magnesium 3.00 H Direct Bilirubin AST ALT Alkaline Phosphatase Lactate Dehydrogenase Troponin T C-Reactive Protein Total Protein Albumin Prealbumin Triglycerides Cholesterol LDL Cholesterol Direct HDL Cholesterol Urine pH Urine WBC (Auto) Urine Creatinine Urine Total Protein Fluid Total Protein Vancomycin Trough Rheumatoid Factor Complement C4 Miscellaneous Test Crossmatch 09/17/16 09/17/16 09/17/16 11:15 17:33 23:47 WBC RBC Hgb Hct MCV MCH MCHC RDW Plt Count Lymph % (Auto) [place] % (Auto) Lymph # [place] # Baso # Seg Neutrophils % Seg Neuts % (Manual) Lymphocytes % (Manual) Monocytes % (Manual) Eosinophils % (Manual) Basophils % (Manual) Nucleated RBC % Seg Neutrophils # Seg Neutrophils # Man Lymphocytes # (Manual) Monocytes # (Manual) Eosinophils # (Manual) Basophils # (Manual) PT INR Fibrinogen dRVVT Confirm Interp Factor V Activity POC ABG pH POC ABG pCO2 POC ABG pO2 ABG pO2 ABG HCO3 ABG Base Excess ABG Hemoglobin Oxyhemoglobin Sodium Potassium Chloride Carbon Dioxide BUN Creatinine Glucose POC Glucose 176 H 246 H 148 H Lactic Acid Calcium Phosphorus Magnesium Direct Bilirubin AST ALT Alkaline Phosphatase Lactate Dehydrogenase Troponin T C-Reactive Protein Total Protein Albumin Prealbumin Triglycerides Cholesterol LDL Cholesterol Direct HDL Cholesterol Urine pH Urine WBC (Auto) Urine Creatinine Urine Total Protein Fluid Total Protein Vancomycin Trough Rheumatoid Factor Complement C4 Miscellaneous Test Crossmatch 09/18/16 09/18/16 09/18/16 05:33 08:31 08:31 WBC 18.0 H RBC 3.17 L Hgb 9.0 L Hct 25.7 L MCV MCH MCHC 35 H RDW 20.4 H Plt Count Lymph % (Auto) [place] % (Auto) Lymph # [place] # Baso # Seg Neutrophils % Seg Neuts % (Manual) Lymphocytes % (Manual) Monocytes % (Manual) Eosinophils % (Manual) Basophils % (Manual) Nucleated RBC % Seg Neutrophils # Seg Neutrophils # Man Lymphocytes # (Manual) Monocytes # (Manual) Eosinophils # (Manual) Basophils # (Manual) PT INR Fibrinogen dRVVT Confirm Interp Factor V Activity POC ABG pH POC ABG pCO2 POC ABG pO2 ABG pO2 ABG HCO3 ABG Base Excess ABG Hemoglobin Oxyhemoglobin Sodium Potassium Chloride Carbon Dioxide 15 L BUN 124 H Creatinine 3.8 H Glucose POC Glucose 120 H Lactic Acid Calcium 8.1 L Phosphorus Magnesium Direct Bilirubin AST ALT Alkaline Phosphatase Lactate Dehydrogenase Troponin T C-Reactive Protein Total Protein Albumin Prealbumin Triglycerides Cholesterol LDL Cholesterol Direct HDL Cholesterol Urine pH Urine WBC (Auto) Urine Creatinine Urine Total Protein Fluid Total Protein Vancomycin Trough Rheumatoid Factor Complement C4 Miscellaneous Test Crossmatch 09/18/16 09/18/16 09/18/16 12:03 15:34 17:50 WBC RBC Hgb Hct MCV MCH MCHC RDW Plt Count Lymph % (Auto) [place] % (Auto) Lymph # [place] # Baso # Seg Neutrophils % Seg Neuts % (Manual) Lymphocytes % (Manual) Monocytes % (Manual) Eosinophils % (Manual) Basophils % (Manual) Nucleated RBC % Seg Neutrophils # Seg Neutrophils # Man Lymphocytes # (Manual) Monocytes # (Manual) Eosinophils # (Manual) Basophils # (Manual) PT INR Fibrinogen dRVVT Confirm Interp Factor V Activity POC ABG pH POC ABG pCO2 25.7 L POC ABG pO2 66 L ABG pO2 ABG HCO3 ABG Base Excess ABG Hemoglobin Oxyhemoglobin Sodium Potassium Chloride Carbon Dioxide BUN Creatinine Glucose POC Glucose 156 H 220 H Lactic Acid Calcium Phosphorus Magnesium Direct Bilirubin AST ALT Alkaline Phosphatase Lactate Dehydrogenase Troponin T C-Reactive Protein Total Protein Albumin Prealbumin Triglycerides Cholesterol LDL Cholesterol Direct HDL Cholesterol Urine pH Urine WBC (Auto) Urine Creatinine Urine Total Protein Fluid Total Protein Vancomycin Trough Rheumatoid Factor Complement C4 Miscellaneous Test Crossmatch 09/19/16 09/19/16 09/19/16 06:21 09:50 09:50 WBC 17.1 H RBC 3.49 L Hgb 9.0 L Hct 28.1 L MCV MCH 26 L MCHC RDW 20.8 H Plt Count Lymph % (Auto) 11.5 L [place] % (Auto) 7.5 H Lymph # [place] # 1.3 H Baso # Seg Neutrophils % 79.8 H Seg Neuts % (Manual) Lymphocytes % (Manual) Monocytes % (Manual) Eosinophils % (Manual) Basophils % (Manual) Nucleated RBC % Seg Neutrophils # 13.7 H Seg Neutrophils # Man Lymphocytes # (Manual) Monocytes # (Manual) Eosinophils # (Manual) Basophils # (Manual) PT INR Fibrinogen dRVVT Confirm Interp Factor V Activity POC ABG pH POC ABG pCO2 POC ABG pO2 ABG pO2 ABG HCO3 ABG Base Excess ABG Hemoglobin Oxyhemoglobin Sodium Potassium Chloride 108.6 H Carbon Dioxide 15 L BUN 125 H Creatinine 4.1 H Glucose 124 H POC Glucose 119 H Lactic Acid Calcium Phosphorus Magnesium Direct Bilirubin AST ALT Alkaline Phosphatase Lactate Dehydrogenase Troponin T C-Reactive Protein Total Protein Albumin Prealbumin Triglycerides Cholesterol LDL Cholesterol Direct HDL Cholesterol Urine pH Urine WBC (Auto) Urine Creatinine Urine Total Protein Fluid Total Protein Vancomycin Trough Rheumatoid Factor Complement C4 Miscellaneous Test Crossmatch 09/19/16 09/19/16 09/19/16 11:25 17:53 23:36 WBC RBC Hgb Hct MCV MCH MCHC RDW Plt Count Lymph % (Auto) [place] % (Auto) Lymph # [place] # Baso # Seg Neutrophils % Seg Neuts % (Manual) Lymphocytes % (Manual) Monocytes % (Manual) Eosinophils % (Manual) Basophils % (Manual) Nucleated RBC % Seg Neutrophils # Seg Neutrophils # Man Lymphocytes # (Manual) Monocytes # (Manual) Eosinophils # (Manual) Basophils # (Manual) PT INR Fibrinogen dRVVT Confirm Interp Factor V Activity POC ABG pH POC ABG pCO2 POC ABG pO2 ABG pO2 ABG HCO3 ABG Base Excess ABG Hemoglobin Oxyhemoglobin Sodium Potassium Chloride Carbon Dioxide BUN Creatinine Glucose POC Glucose 160 H 245 H 121 H Lactic Acid Calcium Phosphorus Magnesium Direct Bilirubin AST ALT Alkaline Phosphatase Lactate Dehydrogenase Troponin T C-Reactive Protein Total Protein Albumin Prealbumin Triglycerides Cholesterol LDL Cholesterol Direct HDL Cholesterol Urine pH Urine WBC (Auto) Urine Creatinine Urine Total Protein Fluid Total Protein Vancomycin Trough Rheumatoid Factor Complement C4 Miscellaneous Test Crossmatch 09/20/16 09/20/16 09/20/16 04:10 04:10 04:10 WBC 17.0 H RBC 3.21 L Hgb 8.2 L Hct 25.5 L MCV MCH 26 L MCHC RDW 20.9 H Plt Count Lymph % (Auto) [place] % (Auto) Lymph # [place] # Baso # Seg Neutrophils % Seg Neuts % (Manual) Lymphocytes % (Manual) Monocytes % (Manual) Eosinophils % (Manual) Basophils % (Manual) Nucleated RBC % Seg Neutrophils # Seg Neutrophils # Man Lymphocytes # (Manual) Monocytes # (Manual) Eosinophils # (Manual) Basophils # (Manual) PT INR Fibrinogen dRVVT Confirm Interp Factor V Activity POC ABG pH POC ABG pCO2 POC ABG pO2 ABG pO2 ABG HCO3 ABG Base Excess ABG Hemoglobin Oxyhemoglobin Sodium Potassium Chloride 111.0 H Carbon Dioxide 16 L BUN 129 H Creatinine 3.7 H Glucose 115 H POC Glucose Lactic Acid Calcium 8.2 L Phosphorus Magnesium Direct Bilirubin AST ALT Alkaline Phosphatase Lactate Dehydrogenase Troponin T C-Reactive Protein Total Protein Albumin Prealbumin Triglycerides 243 H Cholesterol LDL Cholesterol Direct HDL Cholesterol Urine pH Urine WBC (Auto) Urine Creatinine Urine Total Protein Fluid Total Protein Vancomycin Trough Rheumatoid Factor Complement C4 Miscellaneous Test Crossmatch 09/20/16 09/20/16 09/20/16 05:40 11:52 16:50 WBC RBC Hgb Hct MCV MCH MCHC RDW Plt Count Lymph % (Auto) [place] % (Auto) Lymph # [place] # Baso # Seg Neutrophils % Seg Neuts % (Manual) Lymphocytes % (Manual) Monocytes % (Manual) Eosinophils % (Manual) Basophils % (Manual) Nucleated RBC % Seg Neutrophils # Seg Neutrophils # Man Lymphocytes # (Manual) Monocytes # (Manual) Eosinophils # (Manual) Basophils # (Manual) PT INR Fibrinogen dRVVT Confirm Interp Factor V Activity POC ABG pH POC ABG pCO2 POC ABG pO2 ABG pO2 ABG HCO3 ABG Base Excess ABG Hemoglobin Oxyhemoglobin Sodium Potassium Chloride Carbon Dioxide BUN Creatinine Glucose POC Glucose 131 H 183 H 236 H Lactic Acid Calcium Phosphorus Magnesium Direct Bilirubin AST ALT Alkaline Phosphatase Lactate Dehydrogenase Troponin T C-Reactive Protein Total Protein Albumin Prealbumin Triglycerides Cholesterol LDL Cholesterol Direct HDL Cholesterol Urine pH Urine WBC (Auto) Urine Creatinine Urine Total Protein Fluid Total Protein Vancomycin Trough Rheumatoid Factor Complement C4 Miscellaneous Test Crossmatch 09/20/16 09/21/16 09/21/16 23:51 03:30 04:44 WBC RBC Hgb Hct MCV MCH MCHC RDW Plt Count Lymph % (Auto) [place] % (Auto) Lymph # [place] # Baso # Seg Neutrophils % Seg Neuts % (Manual) Lymphocytes % (Manual) Monocytes % (Manual) Eosinophils % (Manual) Basophils % (Manual) Nucleated RBC % Seg Neutrophils # Seg Neutrophils # Man Lymphocytes # (Manual) Monocytes # (Manual) Eosinophils # (Manual) Basophils # (Manual) PT INR Fibrinogen dRVVT Confirm Interp Factor V Activity POC ABG pH POC ABG pCO2 POC ABG pO2 ABG pO2 ABG HCO3 ABG Base Excess ABG Hemoglobin Oxyhemoglobin Sodium Potassium Chloride Carbon Dioxide BUN Creatinine Glucose POC Glucose 114 H 141 H Lactic Acid Calcium Phosphorus Magnesium 2.70 H Direct Bilirubin AST ALT Alkaline Phosphatase Lactate Dehydrogenase Troponin T C-Reactive Protein Total Protein Albumin Prealbumin Triglycerides Cholesterol LDL Cholesterol Direct HDL Cholesterol Urine pH Urine WBC (Auto) Urine Creatinine Urine Total Protein Fluid Total Protein Vancomycin Trough Rheumatoid Factor Complement C4 Miscellaneous Test Crossmatch 09/21/16 09/21/16 09/21/16 07:45 07:45 10:01 WBC 13.8 H RBC 2.94 L Hgb 7.5 L Hct 23.5 L MCV MCH 26 L MCHC RDW 21.2 H Plt Count Lymph % (Auto) 6.9 L [place] % (Auto) 9.4 H Lymph # 0.9 L [place] # 1.3 H Baso # Seg Neutrophils % 83.2 H Seg Neuts % (Manual) Lymphocytes % (Manual) Monocytes % (Manual) Eosinophils % (Manual) Basophils % (Manual) Nucleated RBC % Seg Neutrophils # 11.5 H Seg Neutrophils # Man Lymphocytes # (Manual) Monocytes # (Manual) Eosinophils # (Manual) Basophils # (Manual) PT INR Fibrinogen dRVVT Confirm Interp Factor V Activity POC ABG pH 7.308 L POC ABG pCO2 31.9 L POC ABG pO2 148 H ABG pO2 ABG HCO3 ABG Base Excess ABG Hemoglobin Oxyhemoglobin Sodium 147 H Potassium Chloride 114.2 H Carbon Dioxide 15 L BUN 120 H Creatinine 3.9 H Glucose 156 H POC Glucose Lactic Acid Calcium 8.2 L Phosphorus Magnesium Direct Bilirubin AST ALT Alkaline Phosphatase Lactate Dehydrogenase Troponin T C-Reactive Protein Total Protein Albumin Prealbumin Triglycerides Cholesterol LDL Cholesterol Direct HDL Cholesterol Urine pH Urine WBC (Auto) Urine Creatinine Urine Total Protein Fluid Total Protein Vancomycin Trough Rheumatoid Factor Complement C4 Miscellaneous Test Crossmatch 09/21/16 09/21/16 09/21/16 12:00 12:03 13:00 WBC RBC Hgb Hct MCV MCH MCHC RDW Plt Count Lymph % (Auto) [place] % (Auto) Lymph # [place] # Baso # Seg Neutrophils % Seg Neuts % (Manual) Lymphocytes % (Manual) Monocytes % (Manual) Eosinophils % (Manual) Basophils % (Manual) Nucleated RBC % Seg Neutrophils # Seg Neutrophils # Man Lymphocytes # (Manual) Monocytes # (Manual) Eosinophils # (Manual) Basophils # (Manual) PT INR Fibrinogen dRVVT Confirm Interp Factor V Activity POC ABG pH POC ABG pCO2 POC ABG pO2 ABG pO2 ABG HCO3 ABG Base Excess ABG Hemoglobin Oxyhemoglobin Sodium Potassium Chloride Carbon Dioxide BUN Creatinine Glucose POC Glucose 163 H Lactic Acid Calcium Phosphorus Magnesium Direct Bilirubin AST ALT Alkaline Phosphatase Lactate Dehydrogenase Troponin T C-Reactive Protein Total Protein Albumin Prealbumin Triglycerides Cholesterol LDL Cholesterol Direct HDL Cholesterol Urine pH Urine WBC (Auto) Urine Creatinine 54.8 H Urine Total Protein Fluid Total Protein Vancomycin Trough 2.3 L Rheumatoid Factor Complement C4 Miscellaneous Test Crossmatch 09/21/16 09/21/16 09/22/16 16:51 23:17 06:27 WBC RBC Hgb Hct MCV MCH MCHC RDW Plt Count Lymph % (Auto) [place] % (Auto) Lymph # [place] # Baso # Seg Neutrophils % Seg Neuts % (Manual) Lymphocytes % (Manual) Monocytes % (Manual) Eosinophils % (Manual) Basophils % (Manual) Nucleated RBC % Seg Neutrophils # Seg Neutrophils # Man Lymphocytes # (Manual) Monocytes # (Manual) Eosinophils # (Manual) Basophils # (Manual) PT INR Fibrinogen dRVVT Confirm Interp Factor V Activity POC ABG pH POC ABG pCO2 POC ABG pO2 ABG pO2 ABG HCO3 ABG Base Excess ABG Hemoglobin Oxyhemoglobin Sodium Potassium Chloride Carbon Dioxide BUN Creatinine Glucose POC Glucose 206 H 114 H 115 H Lactic Acid Calcium Phosphorus Magnesium Direct Bilirubin AST ALT Alkaline Phosphatase Lactate Dehydrogenase Troponin T C-Reactive Protein Total Protein Albumin Prealbumin Triglycerides Cholesterol LDL Cholesterol Direct HDL Cholesterol Urine pH Urine WBC (Auto) Urine Creatinine Urine Total Protein Fluid Total Protein Vancomycin Trough Rheumatoid Factor Complement C4 Miscellaneous Test Crossmatch 09/22/16 09/22/16 09/22/16 07:50 07:50 12:00 WBC 17.8 H RBC 3.04 L Hgb 8.0 L Hct 24.7 L MCV MCH 26 L MCHC RDW 21.6 H Plt Count Lymph % (Auto) [place] % (Auto) Lymph # [place] # Baso # Seg Neutrophils % Seg Neuts % (Manual) Lymphocytes % (Manual) Monocytes % (Manual) Eosinophils % (Manual) Basophils % (Manual) Nucleated RBC % Seg Neutrophils # Seg Neutrophils # Man Lymphocytes # (Manual) Monocytes # (Manual) Eosinophils # (Manual) Basophils # (Manual) PT INR Fibrinogen dRVVT Confirm Interp Factor V Activity POC ABG pH POC ABG pCO2 POC ABG pO2 ABG pO2 ABG HCO3 ABG Base Excess ABG Hemoglobin Oxyhemoglobin Sodium 150 H Potassium Chloride 118.2 H Carbon Dioxide 14 L BUN 111 H Creatinine 3.7 H Glucose 157 H POC Glucose 183 H Lactic Acid Calcium Phosphorus Magnesium Direct Bilirubin AST ALT Alkaline Phosphatase Lactate Dehydrogenase Troponin T C-Reactive Protein Total Protein Albumin Prealbumin Triglycerides Cholesterol LDL Cholesterol Direct HDL Cholesterol Urine pH Urine WBC (Auto) Urine Creatinine Urine Total Protein Fluid Total Protein Vancomycin Trough Rheumatoid Factor Complement C4 Miscellaneous Test Crossmatch 09/22/16 09/22/16 09/23/16 17:29 23:10 05:00 WBC 19.2 H RBC 3.13 L Hgb 8.0 L Hct 25.2 L MCV MCH 26 L MCHC RDW 22.1 H Plt Count Lymph % (Auto) [place] % (Auto) Lymph # [place] # Baso # Seg Neutrophils % Seg Neuts % (Manual) 92.0 H Lymphocytes % (Manual) 3.0 L Monocytes % (Manual) Eosinophils % (Manual) Basophils % (Manual) Nucleated RBC % Seg Neutrophils # Seg Neutrophils # Man 17.7 H Lymphocytes # (Manual) 0.6 L Monocytes # (Manual) Eosinophils # (Manual) Basophils # (Manual) PT INR Fibrinogen dRVVT Confirm Interp Factor V Activity POC ABG pH POC ABG pCO2 POC ABG pO2 ABG pO2 ABG HCO3 ABG Base Excess ABG Hemoglobin Oxyhemoglobin Sodium Potassium Chloride Carbon Dioxide BUN Creatinine Glucose POC Glucose 197 H 169 H Lactic Acid Calcium Phosphorus Magnesium Direct Bilirubin AST ALT Alkaline Phosphatase Lactate Dehydrogenase Troponin T C-Reactive Protein Total Protein Albumin Prealbumin Triglycerides Cholesterol LDL Cholesterol Direct HDL Cholesterol Urine pH Urine WBC (Auto) Urine Creatinine Urine Total Protein Fluid Total Protein Vancomycin Trough Rheumatoid Factor Complement C4 Miscellaneous Test Crossmatch 09/23/16 09/23/16 09/23/16 05:00 05:00 05:10 WBC RBC Hgb Hct MCV MCH MCHC RDW Plt Count Lymph % (Auto) [place] % (Auto) Lymph # [place] # Baso # Seg Neutrophils % Seg Neuts % (Manual) Lymphocytes % (Manual) Monocytes % (Manual) Eosinophils % (Manual) Basophils % (Manual) Nucleated RBC % Seg Neutrophils # Seg Neutrophils # Man Lymphocytes # (Manual) Monocytes # (Manual) Eosinophils # (Manual) Basophils # (Manual) PT INR Fibrinogen dRVVT Confirm Interp Factor V Activity POC ABG pH POC ABG pCO2 POC ABG pO2 ABG pO2 ABG HCO3 ABG Base Excess ABG Hemoglobin Oxyhemoglobin Sodium 147 H Potassium 3.2 L Chloride 115.7 H Carbon Dioxide 13 L BUN 111 H Creatinine 3.8 H Glucose 194 H POC Glucose 188 H Lactic Acid Calcium 7.3 L D Phosphorus Magnesium Direct Bilirubin AST ALT Alkaline Phosphatase Lactate Dehydrogenase Troponin T C-Reactive Protein 3.20 H Total Protein Albumin Prealbumin Triglycerides Cholesterol LDL Cholesterol Direct HDL Cholesterol Urine pH Urine WBC (Auto) Urine Creatinine Urine Total Protein Fluid Total Protein Vancomycin Trough Rheumatoid Factor Complement C4 Miscellaneous Test Crossmatch 09/23/16 09/23/16 09/23/16 11:37 12:29 18:01 WBC RBC Hgb Hct MCV MCH MCHC RDW Plt Count Lymph % (Auto) [place] % (Auto) Lymph # [place] # Baso # Seg Neutrophils % Seg Neuts % (Manual) Lymphocytes % (Manual) Monocytes % (Manual) Eosinophils % (Manual) Basophils % (Manual) Nucleated RBC % Seg Neutrophils # Seg Neutrophils # Man Lymphocytes # (Manual) Monocytes # (Manual) Eosinophils # (Manual) Basophils # (Manual) PT INR Fibrinogen dRVVT Confirm Interp Factor V Activity POC ABG pH POC ABG pCO2 18.9 L POC ABG pO2 143 H ABG pO2 ABG HCO3 ABG Base Excess ABG Hemoglobin Oxyhemoglobin Sodium Potassium Chloride Carbon Dioxide BUN Creatinine Glucose POC Glucose 153 H 108 H Lactic Acid Calcium Phosphorus Magnesium Direct Bilirubin AST ALT Alkaline Phosphatase Lactate Dehydrogenase Troponin T C-Reactive Protein Total Protein Albumin Prealbumin Triglycerides Cholesterol LDL Cholesterol Direct HDL Cholesterol Urine pH Urine WBC (Auto) Urine Creatinine Urine Total Protein Fluid Total Protein Vancomycin Trough Rheumatoid Factor Complement C4 Miscellaneous Test Crossmatch 09/23/16 09/23/16 09/24/16 21:19 23:43 05:16 WBC RBC Hgb Hct MCV MCH MCHC RDW Plt Count Lymph % (Auto) [place] % (Auto) Lymph # [place] # Baso # Seg Neutrophils % Seg Neuts % (Manual) Lymphocytes % (Manual) Monocytes % (Manual) Eosinophils % (Manual) Basophils % (Manual) Nucleated RBC % Seg Neutrophils # Seg Neutrophils # Man Lymphocytes # (Manual) Monocytes # (Manual) Eosinophils # (Manual) Basophils # (Manual) PT INR Fibrinogen dRVVT Confirm Interp Factor V Activity POC ABG pH POC ABG pCO2 17.3 L POC ABG pO2 112 H ABG pO2 ABG HCO3 ABG Base Excess ABG Hemoglobin Oxyhemoglobin Sodium Potassium Chloride Carbon Dioxide BUN Creatinine Glucose POC Glucose 143 H 164 H Lactic Acid Calcium Phosphorus Magnesium Direct Bilirubin AST ALT Alkaline Phosphatase Lactate Dehydrogenase Troponin T C-Reactive Protein Total Protein Albumin Prealbumin Triglycerides Cholesterol LDL Cholesterol Direct HDL Cholesterol Urine pH Urine WBC (Auto) Urine Creatinine Urine Total Protein Fluid Total Protein Vancomycin Trough Rheumatoid Factor Complement C4 Miscellaneous Test Crossmatch 09/24/16 09/24/16 09/24/16 05:21 11:58 17:06 WBC RBC Hgb Hct MCV MCH MCHC RDW Plt Count Lymph % (Auto) [place] % (Auto) Lymph # [place] # Baso # Seg Neutrophils % Seg Neuts % (Manual) Lymphocytes % (Manual) Monocytes % (Manual) Eosinophils % (Manual) Basophils % (Manual) Nucleated RBC % Seg Neutrophils # Seg Neutrophils # Man Lymphocytes # (Manual) Monocytes # (Manual) Eosinophils # (Manual) Basophils # (Manual) PT INR Fibrinogen dRVVT Confirm Interp Factor V Activity POC ABG pH POC ABG pCO2 POC ABG pO2 ABG pO2 ABG HCO3 ABG Base Excess ABG Hemoglobin Oxyhemoglobin Sodium Potassium Chloride Carbon Dioxide 10 L BUN 103 H Creatinine 4.3 H Glucose 163 H POC Glucose 173 H 167 H Lactic Acid Calcium 6.5 L Phosphorus Magnesium Direct Bilirubin AST ALT Alkaline Phosphatase Lactate Dehydrogenase Troponin T C-Reactive Protein Total Protein Albumin Prealbumin Triglycerides Cholesterol LDL Cholesterol Direct HDL Cholesterol Urine pH Urine WBC (Auto) Urine Creatinine Urine Total Protein Fluid Total Protein Vancomycin Trough Rheumatoid Factor Complement C4 Miscellaneous Test Crossmatch 09/24/16 09/24/16 09/24/16 20:15 21:02 23:48 WBC RBC Hgb Hct MCV MCH MCHC RDW Plt Count Lymph % (Auto) [place] % (Auto) Lymph # [place] # Baso # Seg Neutrophils % Seg Neuts % (Manual) Lymphocytes % (Manual) Monocytes % (Manual) Eosinophils % (Manual) Basophils % (Manual) Nucleated RBC % Seg Neutrophils # Seg Neutrophils # Man Lymphocytes # (Manual) Monocytes # (Manual) Eosinophils # (Manual) Basophils # (Manual) PT INR Fibrinogen dRVVT Confirm Interp Factor V Activity POC ABG pH 7.288 L POC ABG pCO2 30.2 L 21.5 L POC ABG pO2 32 L 39 L ABG pO2 ABG HCO3 ABG Base Excess ABG Hemoglobin Oxyhemoglobin Sodium Potassium Chloride Carbon Dioxide BUN Creatinine Glucose POC Glucose 109 H Lactic Acid Calcium Phosphorus Magnesium Direct Bilirubin AST ALT Alkaline Phosphatase Lactate Dehydrogenase Troponin T C-Reactive Protein Total Protein Albumin Prealbumin Triglycerides Cholesterol LDL Cholesterol Direct HDL Cholesterol Urine pH Urine WBC (Auto) Urine Creatinine Urine Total Protein Fluid Total Protein Vancomycin Trough Rheumatoid Factor Complement C4 Miscellaneous Test Crossmatch 09/25/16 09/25/16 09/25/16 04:20 04:20 04:20 WBC RBC 2.58 L Hgb 7.0 L Hct 21.0 L MCV MCH 27 L MCHC RDW 23.8 H Plt Count Lymph % (Auto) [place] % (Auto) Lymph # [place] # Baso # Seg Neutrophils % Seg Neuts % (Manual) Lymphocytes % (Manual) 12.0 L Monocytes % (Manual) Eosinophils % (Manual) 7.0 H Basophils % (Manual) 2.0 H Nucleated RBC % Seg Neutrophils # Seg Neutrophils # Man Lymphocytes # (Manual) 0.9 L Monocytes # (Manual) Eosinophils # (Manual) 0.5 H Basophils # (Manual) PT INR Fibrinogen dRVVT Confirm Interp Factor V Activity POC ABG pH POC ABG pCO2 POC ABG pO2 ABG pO2 ABG HCO3 ABG Base Excess ABG Hemoglobin Oxyhemoglobin Sodium Potassium Chloride Carbon Dioxide 15 L BUN 72 H Creatinine 3.8 H Glucose POC Glucose Lactic Acid Calcium 6.0 L Phosphorus 4.60 H Magnesium 1.60 L Direct Bilirubin AST ALT Alkaline Phosphatase Lactate Dehydrogenase Troponin T C-Reactive Protein Total Protein Albumin Prealbumin Triglycerides Cholesterol LDL Cholesterol Direct HDL Cholesterol Urine pH Urine WBC (Auto) Urine Creatinine Urine Total Protein Fluid Total Protein Vancomycin Trough Rheumatoid Factor Complement C4 Miscellaneous Test Crossmatch 09/25/16 09/25/16 09/25/16 04:57 08:02 10:30 WBC RBC Hgb Hct MCV MCH MCHC RDW Plt Count Lymph % (Auto) [place] % (Auto) Lymph # [place] # Baso # Seg Neutrophils % Seg Neuts % (Manual) Lymphocytes % (Manual) Monocytes % (Manual) Eosinophils % (Manual) Basophils % (Manual) Nucleated RBC % Seg Neutrophils # Seg Neutrophils # Man Lymphocytes # (Manual) Monocytes # (Manual) Eosinophils # (Manual) Basophils # (Manual) PT INR Fibrinogen dRVVT Confirm Interp Factor V Activity POC ABG pH POC ABG pCO2 24.7 L POC ABG pO2 152 H ABG pO2 ABG HCO3 ABG Base Excess ABG Hemoglobin Oxyhemoglobin Sodium Potassium Chloride Carbon Dioxide BUN Creatinine Glucose POC Glucose 113 H Lactic Acid Calcium Phosphorus Magnesium Direct Bilirubin AST ALT Alkaline Phosphatase Lactate Dehydrogenase Troponin T C-Reactive Protein Total Protein Albumin Prealbumin Triglycerides Cholesterol LDL Cholesterol Direct HDL Cholesterol Urine pH Urine WBC (Auto) Urine Creatinine Urine Total Protein Fluid Total Protein Vancomycin Trough Rheumatoid Factor Complement C4 Miscellaneous Test Crossmatch See Detail 09/25/16 09/25/16 09/25/16 12:05 17:44 23:47 WBC RBC Hgb Hct MCV MCH MCHC RDW Plt Count Lymph % (Auto) [place] % (Auto) Lymph # [place] # Baso # Seg Neutrophils % Seg Neuts % (Manual) Lymphocytes % (Manual) Monocytes % (Manual) Eosinophils % (Manual) Basophils % (Manual) Nucleated RBC % Seg Neutrophils # Seg Neutrophils # Man Lymphocytes # (Manual) Monocytes # (Manual) Eosinophils # (Manual) Basophils # (Manual) PT INR Fibrinogen dRVVT Confirm Interp Factor V Activity POC ABG pH POC ABG pCO2 POC ABG pO2 ABG pO2 ABG HCO3 ABG Base Excess ABG Hemoglobin Oxyhemoglobin Sodium Potassium Chloride Carbon Dioxide BUN Creatinine Glucose POC Glucose 117 H 119 H 150 H Lactic Acid Calcium Phosphorus Magnesium Direct Bilirubin AST ALT Alkaline Phosphatase Lactate Dehydrogenase Troponin T C-Reactive Protein Total Protein Albumin Prealbumin Triglycerides Cholesterol LDL Cholesterol Direct HDL Cholesterol Urine pH Urine WBC (Auto) Urine Creatinine Urine Total Protein Fluid Total Protein Vancomycin Trough Rheumatoid Factor Complement C4 Miscellaneous Test Crossmatch 09/26/16 09/26/16 09/26/16 04:25 04:25 04:25 WBC RBC 2.65 L Hgb 7.4 L Hct 21.6 L MCV MCH MCHC RDW 22.5 H Plt Count Lymph % (Auto) [place] % (Auto) Lymph # [place] # Baso # Seg Neutrophils % Seg Neuts % (Manual) Lymphocytes % (Manual) 6.0 L Monocytes % (Manual) Eosinophils % (Manual) 11.0 H Basophils % (Manual) Nucleated RBC % Seg Neutrophils # Seg Neutrophils # Man Lymphocytes # (Manual) 0.4 L Monocytes # (Manual) Eosinophils # (Manual) 0.6 H Basophils # (Manual) PT INR Fibrinogen dRVVT Confirm Interp Factor V Activity POC ABG pH POC ABG pCO2 POC ABG pO2 ABG pO2 ABG HCO3 ABG Base Excess ABG Hemoglobin Oxyhemoglobin Sodium Potassium Chloride 97.0 L Carbon Dioxide 19 L BUN 43 H Creatinine 2.6 H Glucose 130 H POC Glucose Lactic Acid 4.40 H* Calcium 6.7 L Phosphorus Magnesium Direct Bilirubin AST ALT Alkaline Phosphatase Lactate Dehydrogenase Troponin T C-Reactive Protein Total Protein Albumin Prealbumin Triglycerides Cholesterol LDL Cholesterol Direct HDL Cholesterol Urine pH Urine WBC (Auto) Urine Creatinine Urine Total Protein Fluid Total Protein Vancomycin Trough Rheumatoid Factor Complement C4 Miscellaneous Test Crossmatch 09/26/16 09/26/16 09/26/16 05:20 11:44 12:12 WBC RBC Hgb Hct MCV MCH MCHC RDW Plt Count Lymph % (Auto) [place] % (Auto) Lymph # [place] # Baso # Seg Neutrophils % Seg Neuts % (Manual) Lymphocytes % (Manual) Monocytes % (Manual) Eosinophils % (Manual) Basophils % (Manual) Nucleated RBC % Seg Neutrophils # Seg Neutrophils # Man Lymphocytes # (Manual) Monocytes # (Manual) Eosinophils # (Manual) Basophils # (Manual) PT INR Fibrinogen dRVVT Confirm Interp Factor V Activity POC ABG pH POC ABG pCO2 27.0 L POC ABG pO2 69 L ABG pO2 ABG HCO3 ABG Base Excess ABG Hemoglobin Oxyhemoglobin Sodium Potassium Chloride Carbon Dioxide BUN Creatinine Glucose POC Glucose 121 H 128 H Lactic Acid Calcium Phosphorus Magnesium Direct Bilirubin AST ALT Alkaline Phosphatase Lactate Dehydrogenase Troponin T C-Reactive Protein Total Protein Albumin Prealbumin Triglycerides Cholesterol LDL Cholesterol Direct HDL Cholesterol Urine pH Urine WBC (Auto) Urine Creatinine Urine Total Protein Fluid Total Protein Vancomycin Trough Rheumatoid Factor Complement C4 Miscellaneous Test Crossmatch 09/26/16 09/26/16 09/27/16 18:31 23:40 08:20 WBC RBC Hgb Hct MCV MCH MCHC RDW Plt Count Lymph % (Auto) [place] % (Auto) Lymph # [place] # Baso # Seg Neutrophils % Seg Neuts % (Manual) Lymphocytes % (Manual) Monocytes % (Manual) Eosinophils % (Manual) Basophils % (Manual) Nucleated RBC % Seg Neutrophils # Seg Neutrophils # Man Lymphocytes # (Manual) Monocytes # (Manual) Eosinophils # (Manual) Basophils # (Manual) PT INR Fibrinogen dRVVT Confirm Interp Factor V Activity POC ABG pH POC ABG pCO2 POC ABG pO2 ABG pO2 ABG HCO3 ABG Base Excess ABG Hemoglobin Oxyhemoglobin Sodium Potassium Chloride Carbon Dioxide BUN Creatinine Glucose POC Glucose 120 H 133 H Lactic Acid 4.10 H* Calcium Phosphorus Magnesium Direct Bilirubin AST ALT Alkaline Phosphatase Lactate Dehydrogenase Troponin T C-Reactive Protein Total Protein Albumin Prealbumin Triglycerides Cholesterol LDL Cholesterol Direct HDL Cholesterol Urine pH Urine WBC (Auto) Urine Creatinine Urine Total Protein Fluid Total Protein Vancomycin Trough Rheumatoid Factor Complement C4 Miscellaneous Test Crossmatch 09/27/16 09/27/16 09/27/16 11:23 15:00 18:15 WBC RBC Hgb Hct MCV MCH MCHC RDW Plt Count Lymph % (Auto) [place] % (Auto) Lymph # [place] # Baso # Seg Neutrophils % Seg Neuts % (Manual) Lymphocytes % (Manual) Monocytes % (Manual) Eosinophils % (Manual) Basophils % (Manual) Nucleated RBC % Seg Neutrophils # Seg Neutrophils # Man Lymphocytes # (Manual) Monocytes # (Manual) Eosinophils # (Manual) Basophils # (Manual) PT INR Fibrinogen dRVVT Confirm Interp Factor V Activity POC ABG pH 7.459 H POC ABG pCO2 27.1 L POC ABG pO2 140 H ABG pO2 ABG HCO3 ABG Base Excess ABG Hemoglobin Oxyhemoglobin Sodium Potassium Chloride Carbon Dioxide BUN Creatinine Glucose POC Glucose 114 H 127 H Lactic Acid Calcium Phosphorus Magnesium Direct Bilirubin AST ALT Alkaline Phosphatase Lactate Dehydrogenase Troponin T C-Reactive Protein Total Protein Albumin Prealbumin Triglycerides Cholesterol LDL Cholesterol Direct HDL Cholesterol Urine pH Urine WBC (Auto) Urine Creatinine Urine Total Protein Fluid Total Protein Vancomycin Trough Rheumatoid Factor Complement C4 Miscellaneous Test Crossmatch 09/27/16 09/27/16 09/28/16 Unknown Unknown 03:45 WBC RBC 2.49 L Hgb 6.8 L Hct 20.7 L MCV MCH 27 L MCHC RDW 22.1 H Plt Count Lymph % (Auto) [place] % (Auto) Lymph # [place] # Baso # Seg Neutrophils % Seg Neuts % (Manual) 32.0 L Lymphocytes % (Manual) 12.0 L Monocytes % (Manual) 11.0 H Eosinophils % (Manual) 10.0 H Basophils % (Manual) Nucleated RBC % Seg Neutrophils # Seg Neutrophils # Man Lymphocytes # (Manual) 1.0 L Monocytes # (Manual) 0.9 H Eosinophils # (Manual) 0.8 H Basophils # (Manual) PT INR Fibrinogen dRVVT Confirm Interp Factor V Activity POC ABG pH POC ABG pCO2 POC ABG pO2 ABG pO2 ABG HCO3 ABG Base Excess ABG Hemoglobin Oxyhemoglobin Sodium 135 L 135 L Potassium 3.5 L Chloride 93.6 L 94.4 L Carbon Dioxide 17 L 21 L BUN 45 H 28 H Creatinine 3.3 H 2.5 H Glucose 106 H POC Glucose Lactic Acid Calcium 7.3 L 7.1 L Phosphorus Magnesium Direct Bilirubin AST ALT Alkaline Phosphatase Lactate Dehydrogenase Troponin T C-Reactive Protein Total Protein Albumin Prealbumin Triglycerides Cholesterol LDL Cholesterol Direct HDL Cholesterol Urine pH Urine WBC (Auto) Urine Creatinine Urine Total Protein Fluid Total Protein Vancomycin Trough Rheumatoid Factor Complement C4 Miscellaneous Test Crossmatch 09/28/16 09/28/16 09/28/16 03:45 07:25 11:58 WBC 13.3 H RBC 3.01 L Hgb 8.4 L Hct 25.0 L MCV MCH MCHC RDW 20.5 H Plt Count 128 L Lymph % (Auto) [place] % (Auto) Lymph # [place] # Baso # Seg Neutrophils % Seg Neuts % (Manual) Lymphocytes % (Manual) 7.0 L Monocytes % (Manual) Eosinophils % (Manual) 6.0 H Basophils % (Manual) Nucleated RBC % Seg Neutrophils # Seg Neutrophils # Man Lymphocytes # (Manual) 0.9 L Monocytes # (Manual) Eosinophils # (Manual) 0.8 H Basophils # (Manual) PT INR Fibrinogen dRVVT Confirm Interp Factor V Activity POC ABG pH POC ABG pCO2 POC ABG pO2 ABG pO2 ABG HCO3 ABG Base Excess ABG Hemoglobin Oxyhemoglobin Sodium Potassium Chloride Carbon Dioxide BUN Creatinine Glucose POC Glucose 121 H Lactic Acid 4.50 H* Calcium Phosphorus Magnesium Direct Bilirubin AST ALT Alkaline Phosphatase Lactate Dehydrogenase Troponin T C-Reactive Protein Total Protein Albumin Prealbumin Triglycerides Cholesterol LDL Cholesterol Direct HDL Cholesterol Urine pH Urine WBC (Auto) Urine Creatinine Urine Total Protein Fluid Total Protein Vancomycin Trough Rheumatoid Factor Complement C4 Miscellaneous Test Crossmatch 09/29/16 09/29/16 09/29/16 06:45 06:45 06:45 WBC 14.9 H RBC 2.74 L Hgb 7.6 L Hct 23.2 L MCV MCH MCHC RDW 20.5 H Plt Count 81 L Lymph % (Auto) [place] % (Auto) Lymph # [place] # Baso # Seg Neutrophils % Seg Neuts % (Manual) 81.0 H Lymphocytes % (Manual) 4.0 L Monocytes % (Manual) Eosinophils % (Manual) Basophils % (Manual) Nucleated RBC % Seg Neutrophils # Seg Neutrophils # Man 12.1 H Lymphocytes # (Manual) 0.6 L Monocytes # (Manual) Eosinophils # (Manual) Basophils # (Manual) PT INR Fibrinogen dRVVT Confirm Interp Factor V Activity POC ABG pH POC ABG pCO2 POC ABG pO2 ABG pO2 ABG HCO3 ABG Base Excess ABG Hemoglobin Oxyhemoglobin Sodium 133 L Potassium 3.4 L Chloride 92.5 L Carbon Dioxide 21 L BUN 33 H Creatinine 3.0 H Glucose POC Glucose Lactic Acid Calcium 6.6 L Phosphorus Magnesium 1.40 L Direct Bilirubin 0.9 H AST ALT Alkaline Phosphatase Lactate Dehydrogenase Troponin T C-Reactive Protein Total Protein 4.3 L Albumin 1.3 L Prealbumin Triglycerides Cholesterol LDL Cholesterol Direct HDL Cholesterol Urine pH Urine WBC (Auto) Urine Creatinine Urine Total Protein Fluid Total Protein Vancomycin Trough Rheumatoid Factor Complement C4 Miscellaneous Test Crossmatch 09/29/16 09/29/16 09/30/16 17:52 20:12 00:07 WBC RBC Hgb Hct MCV MCH MCHC RDW Plt Count Lymph % (Auto) [place] % (Auto) Lymph # [place] # Baso # Seg Neutrophils % Seg Neuts % (Manual) Lymphocytes % (Manual) Monocytes % (Manual) Eosinophils % (Manual) Basophils % (Manual) Nucleated RBC % Seg Neutrophils # Seg Neutrophils # Man Lymphocytes # (Manual) Monocytes # (Manual) Eosinophils # (Manual) Basophils # (Manual) PT INR Fibrinogen dRVVT Confirm Interp Factor V Activity POC ABG pH POC ABG pCO2 POC ABG pO2 ABG pO2 ABG HCO3 ABG Base Excess ABG Hemoglobin Oxyhemoglobin Sodium Potassium Chloride Carbon Dioxide BUN Creatinine Glucose POC Glucose 50 L 51 L Lactic Acid Calcium Phosphorus Magnesium Direct Bilirubin AST ALT Alkaline Phosphatase Lactate Dehydrogenase Troponin T 0.204 H* C-Reactive Protein Total Protein Albumin Prealbumin Triglycerides Cholesterol 31 L LDL Cholesterol Direct 4 L HDL Cholesterol 3 L Urine pH Urine WBC (Auto) Urine Creatinine Urine Total Protein Fluid Total Protein Vancomycin Trough Rheumatoid Factor Complement C4 Miscellaneous Test Crossmatch 09/30/16 09/30/16 09/30/16 01:30 05:15 06:10 WBC RBC Hgb Hct MCV MCH MCHC RDW Plt Count Lymph % (Auto) [place] % (Auto) Lymph # [place] # Baso # Seg Neutrophils % Seg Neuts % (Manual) Lymphocytes % (Manual) Monocytes % (Manual) Eosinophils % (Manual) Basophils % (Manual) Nucleated RBC % Seg Neutrophils # Seg Neutrophils # Man Lymphocytes # (Manual) Monocytes # (Manual) Eosinophils # (Manual) Basophils # (Manual) PT INR Fibrinogen dRVVT Confirm Interp Factor V Activity POC ABG pH POC ABG pCO2 POC ABG pO2 ABG pO2 ABG HCO3 ABG Base Excess ABG Hemoglobin Oxyhemoglobin Sodium 133 L Potassium 3.2 L Chloride 93.2 L Carbon Dioxide 19 L BUN 36 H Creatinine 3.2 H Glucose 104 H POC Glucose 167 H 146 H Lactic Acid Calcium 6.4 L Phosphorus Magnesium 1.60 L Direct Bilirubin AST ALT Alkaline Phosphatase Lactate Dehydrogenase Troponin T C-Reactive Protein Total Protein Albumin Prealbumin Triglycerides Cholesterol LDL Cholesterol Direct HDL Cholesterol Urine pH Urine WBC (Auto) Urine Creatinine Urine Total Protein Fluid Total Protein Vancomycin Trough Rheumatoid Factor Complement C4 Miscellaneous Test Crossmatch 09/30/16 09/30/16 09/30/16 11:26 13:39 18:38 WBC RBC Hgb Hct MCV MCH MCHC RDW Plt Count Lymph % (Auto) [place] % (Auto) Lymph # [place] # Baso # Seg Neutrophils % Seg Neuts % (Manual) Lymphocytes % (Manual) Monocytes % (Manual) Eosinophils % (Manual) Basophils % (Manual) Nucleated RBC % Seg Neutrophils # Seg Neutrophils # Man Lymphocytes # (Manual) Monocytes # (Manual) Eosinophils # (Manual) Basophils # (Manual) PT INR Fibrinogen dRVVT Confirm Interp Factor V Activity POC ABG pH 7.479 H POC ABG pCO2 29.8 L POC ABG pO2 117 H ABG pO2 ABG HCO3 ABG Base Excess ABG Hemoglobin Oxyhemoglobin Sodium Potassium Chloride Carbon Dioxide BUN Creatinine Glucose POC Glucose 140 H 122 H Lactic Acid Calcium Phosphorus Magnesium Direct Bilirubin AST ALT Alkaline Phosphatase Lactate Dehydrogenase Troponin T C-Reactive Protein Total Protein Albumin Prealbumin Triglycerides Cholesterol LDL Cholesterol Direct HDL Cholesterol Urine pH Urine WBC (Auto) Urine Creatinine Urine Total Protein Fluid Total Protein Vancomycin Trough Rheumatoid Factor Complement C4 Miscellaneous Test Crossmatch 10/01/16 10/01/16 10/01/16 06:00 06:00 12:37 WBC 12.6 H RBC 2.75 L Hgb 7.3 L Hct 23.3 L MCV MCH 27 L MCHC RDW 20.6 H Plt Count 72 L Lymph % (Auto) [place] % (Auto) Lymph # [place] # Baso # Seg Neutrophils % Seg Neuts % (Manual) 31.0 L Lymphocytes % (Manual) 8.0 L Monocytes % (Manual) Eosinophils % (Manual) Basophils % (Manual) Nucleated RBC % 3.0 H Seg Neutrophils # Seg Neutrophils # Man Lymphocytes # (Manual) 1.0 L Monocytes # (Manual) Eosinophils # (Manual) Basophils # (Manual) PT INR Fibrinogen dRVVT Confirm Interp Factor V Activity POC ABG pH POC ABG pCO2 POC ABG pO2 ABG pO2 ABG HCO3 ABG Base Excess ABG Hemoglobin Oxyhemoglobin Sodium 127 L Potassium Chloride 86.8 L Carbon Dioxide 20 L BUN 42 H Creatinine 3.5 H Glucose POC Glucose 65 L Lactic Acid Calcium 7.0 L Phosphorus Magnesium Direct Bilirubin AST ALT Alkaline Phosphatase Lactate Dehydrogenase Troponin T C-Reactive Protein Total Protein Albumin Prealbumin Triglycerides Cholesterol LDL Cholesterol Direct HDL Cholesterol Urine pH Urine WBC (Auto) Urine Creatinine Urine Total Protein Fluid Total Protein Vancomycin Trough Rheumatoid Factor Complement C4 Miscellaneous Test Crossmatch 10/01/16 10/01/16 10/02/16 17:39 23:32 00:59 WBC RBC Hgb Hct MCV MCH MCHC RDW Plt Count Lymph % (Auto) [place] % (Auto) Lymph # [place] # Baso # Seg Neutrophils % Seg Neuts % (Manual) Lymphocytes % (Manual) Monocytes % (Manual) Eosinophils % (Manual) Basophils % (Manual) Nucleated RBC % Seg Neutrophils # Seg Neutrophils # Man Lymphocytes # (Manual) Monocytes # (Manual) Eosinophils # (Manual) Basophils # (Manual) PT INR Fibrinogen dRVVT Confirm Interp Factor V Activity POC ABG pH POC ABG pCO2 POC ABG pO2 ABG pO2 ABG HCO3 ABG Base Excess ABG Hemoglobin Oxyhemoglobin Sodium Potassium Chloride Carbon Dioxide BUN Creatinine Glucose POC Glucose 107 H 52 L 145 H Lactic Acid Calcium Phosphorus Magnesium Direct Bilirubin AST ALT Alkaline Phosphatase Lactate Dehydrogenase Troponin T C-Reactive Protein Total Protein Albumin Prealbumin Triglycerides Cholesterol LDL Cholesterol Direct HDL Cholesterol Urine pH Urine WBC (Auto) Urine Creatinine Urine Total Protein Fluid Total Protein Vancomycin Trough Rheumatoid Factor Complement C4 Miscellaneous Test Crossmatch 10/02/16 10/02/16 10/02/16 10:30 10:50 10:50 WBC 14.7 H RBC 2.76 L Hgb 7.4 L Hct 23.6 L MCV MCH 27 L MCHC RDW 20.2 H Plt Count 79 L Lymph % (Auto) [place] % (Auto) Lymph # [place] # Baso # Seg Neutrophils % Seg Neuts % (Manual) 86.0 H Lymphocytes % (Manual) 6.0 L Monocytes % (Manual) Eosinophils % (Manual) Basophils % (Manual) Nucleated RBC % Seg Neutrophils # Seg Neutrophils # Man 12.6 H Lymphocytes # (Manual) 0.9 L Monocytes # (Manual) Eosinophils # (Manual) Basophils # (Manual) PT INR Fibrinogen dRVVT Confirm Interp Factor V Activity POC ABG pH 7.486 H POC ABG pCO2 30.1 L POC ABG pO2 108 H ABG pO2 ABG HCO3 ABG Base Excess ABG Hemoglobin Oxyhemoglobin Sodium 131 L Potassium 3.4 L Chloride 89.9 L Carbon Dioxide BUN 26 H Creatinine 2.6 H Glucose POC Glucose Lactic Acid Calcium 7.0 L Phosphorus Magnesium Direct Bilirubin AST ALT Alkaline Phosphatase Lactate Dehydrogenase Troponin T C-Reactive Protein Total Protein Albumin Prealbumin Triglycerides Cholesterol LDL Cholesterol Direct HDL Cholesterol Urine pH Urine WBC (Auto) Urine Creatinine Urine Total Protein Fluid Total Protein Vancomycin Trough Rheumatoid Factor Complement C4 Miscellaneous Test Crossmatch 10/02/16 10/03/16 10/03/16 23:45 00:45 05:10 WBC 12.9 H RBC 2.77 L Hgb 7.6 L Hct 23.7 L MCV MCH 27 L MCHC RDW 19.7 H Plt Count 89 L Lymph % (Auto) [place] % (Auto) Lymph # [place] # Baso # Seg Neutrophils % Seg Neuts % (Manual) Lymphocytes % (Manual) 8.0 L Monocytes % (Manual) Eosinophils % (Manual) Basophils % (Manual) Nucleated RBC % Seg Neutrophils # 11.9 H Seg Neutrophils # Man Lymphocytes # (Manual) 1.0 L Monocytes # (Manual) Eosinophils # (Manual) Basophils # (Manual) PT INR Fibrinogen dRVVT Confirm Interp Factor V Activity POC ABG pH POC ABG pCO2 POC ABG pO2 ABG pO2 ABG HCO3 ABG Base Excess ABG Hemoglobin Oxyhemoglobin Sodium Potassium Chloride Carbon Dioxide BUN Creatinine Glucose POC Glucose 55 L 199 H Lactic Acid Calcium Phosphorus Magnesium Direct Bilirubin AST ALT Alkaline Phosphatase Lactate Dehydrogenase Troponin T C-Reactive Protein Total Protein Albumin Prealbumin Triglycerides Cholesterol LDL Cholesterol Direct HDL Cholesterol Urine pH Urine WBC (Auto) Urine Creatinine Urine Total Protein Fluid Total Protein Vancomycin Trough Rheumatoid Factor Complement C4 Miscellaneous Test Crossmatch 10/03/16 10/03/16 10/03/16 05:10 12:14 13:18 WBC RBC Hgb Hct MCV MCH MCHC RDW Plt Count Lymph % (Auto) [place] % (Auto) Lymph # [place] # Baso # Seg Neutrophils % Seg Neuts % (Manual) Lymphocytes % (Manual) Monocytes % (Manual) Eosinophils % (Manual) Basophils % (Manual) Nucleated RBC % Seg Neutrophils # Seg Neutrophils # Man Lymphocytes # (Manual) Monocytes # (Manual) Eosinophils # (Manual) Basophils # (Manual) PT INR Fibrinogen dRVVT Confirm Interp Factor V Activity POC ABG pH POC ABG pCO2 POC ABG pO2 ABG pO2 ABG HCO3 ABG Base Excess ABG Hemoglobin Oxyhemoglobin Sodium 129 L Potassium 3.3 L Chloride 88.8 L Carbon Dioxide 20 L BUN 29 H Creatinine 2.8 H Glucose POC Glucose 68 L 127 H Lactic Acid Calcium 7.2 L Phosphorus Magnesium Direct Bilirubin AST ALT Alkaline Phosphatase Lactate Dehydrogenase Troponin T C-Reactive Protein Total Protein Albumin Prealbumin Triglycerides Cholesterol LDL Cholesterol Direct HDL Cholesterol Urine pH Urine WBC (Auto) Urine Creatinine Urine Total Protein Fluid Total Protein Vancomycin Trough Rheumatoid Factor Complement C4 Miscellaneous Test Crossmatch 10/03/16 10/03/16 10/03/16 14:42 18:21 19:09 WBC RBC Hgb Hct MCV MCH MCHC RDW Plt Count Lymph % (Auto) [place] % (Auto) Lymph # [place] # Baso # Seg Neutrophils % Seg Neuts % (Manual) Lymphocytes % (Manual) Monocytes % (Manual) Eosinophils % (Manual) Basophils % (Manual) Nucleated RBC % Seg Neutrophils # Seg Neutrophils # Man Lymphocytes # (Manual) Monocytes # (Manual) Eosinophils # (Manual) Basophils # (Manual) PT INR Fibrinogen dRVVT Confirm Interp Factor V Activity POC ABG pH 7.499 H POC ABG pCO2 28.4 L POC ABG pO2 44 L ABG pO2 ABG HCO3 ABG Base Excess ABG Hemoglobin Oxyhemoglobin Sodium Potassium Chloride Carbon Dioxide BUN Creatinine Glucose POC Glucose 64 L 205 H Lactic Acid Calcium Phosphorus Magnesium Direct Bilirubin AST ALT Alkaline Phosphatase Lactate Dehydrogenase Troponin T C-Reactive Protein Total Protein Albumin Prealbumin Triglycerides Cholesterol LDL Cholesterol Direct HDL Cholesterol Urine pH Urine WBC (Auto) Urine Creatinine Urine Total Protein Fluid Total Protein Vancomycin Trough Rheumatoid Factor Complement C4 Miscellaneous Test Crossmatch 10/03/16 10/04/16 10/04/16 23:33 04:18 06:30 WBC RBC 2.54 L Hgb 7.1 L Hct 21.7 L MCV MCH MCHC RDW 19.5 H Plt Count 76 L Lymph % (Auto) [place] % (Auto) Lymph # [place] # Baso # Seg Neutrophils % Seg Neuts % (Manual) 88.0 H Lymphocytes % (Manual) 6.0 L Monocytes % (Manual) Eosinophils % (Manual) Basophils % (Manual) Nucleated RBC % Seg Neutrophils # Seg Neutrophils # Man 8.8 H Lymphocytes # (Manual) 0.6 L Monocytes # (Manual) Eosinophils # (Manual) Basophils # (Manual) PT INR Fibrinogen dRVVT Confirm Interp Factor V Activity POC ABG pH 7.461 H POC ABG pCO2 33.6 L POC ABG pO2 211 H ABG pO2 ABG HCO3 ABG Base Excess ABG Hemoglobin Oxyhemoglobin Sodium Potassium Chloride Carbon Dioxide BUN Creatinine Glucose POC Glucose 136 H Lactic Acid Calcium Phosphorus Magnesium Direct Bilirubin AST ALT Alkaline Phosphatase Lactate Dehydrogenase Troponin T C-Reactive Protein Total Protein Albumin Prealbumin Triglycerides Cholesterol LDL Cholesterol Direct HDL Cholesterol Urine pH Urine WBC (Auto) Urine Creatinine Urine Total Protein Fluid Total Protein Vancomycin Trough Rheumatoid Factor Complement C4 Miscellaneous Test Crossmatch 10/04/16 10/04/16 10/04/16 06:30 11:45 17:54 WBC RBC Hgb Hct MCV MCH MCHC RDW Plt Count Lymph % (Auto) [place] % (Auto) Lymph # [place] # Baso # Seg Neutrophils % Seg Neuts % (Manual) Lymphocytes % (Manual) Monocytes % (Manual) Eosinophils % (Manual) Basophils % (Manual) Nucleated RBC % Seg Neutrophils # Seg Neutrophils # Man Lymphocytes # (Manual) Monocytes # (Manual) Eosinophils # (Manual) Basophils # (Manual) PT INR Fibrinogen dRVVT Confirm Interp Factor V Activity POC ABG pH POC ABG pCO2 POC ABG pO2 ABG pO2 ABG HCO3 ABG Base Excess ABG Hemoglobin Oxyhemoglobin Sodium 128 L Potassium Chloride 87.4 L Carbon Dioxide 20 L BUN 34 H Creatinine 2.9 H Glucose 127 H POC Glucose 158 H 160 H Lactic Acid Calcium 7.4 L Phosphorus Magnesium Direct Bilirubin AST ALT Alkaline Phosphatase Lactate Dehydrogenase Troponin T C-Reactive Protein Total Protein Albumin Prealbumin Triglycerides Cholesterol LDL Cholesterol Direct HDL Cholesterol Urine pH Urine WBC (Auto) Urine Creatinine Urine Total Protein Fluid Total Protein Vancomycin Trough Rheumatoid Factor Complement C4 Miscellaneous Test Crossmatch 10/04/16 10/05/16 10/05/16 23:25 04:30 05:00 WBC RBC 2.64 L Hgb 7.5 L Hct 22.6 L MCV MCH MCHC RDW 19.3 H Plt Count 80 L Lymph % (Auto) [place] % (Auto) Lymph # [place] # Baso # Seg Neutrophils % Seg Neuts % (Manual) Lymphocytes % (Manual) 12.0 L Monocytes % (Manual) Eosinophils % (Manual) Basophils % (Manual) Nucleated RBC % Seg Neutrophils # Seg Neutrophils # Man Lymphocytes # (Manual) Monocytes # (Manual) Eosinophils # (Manual) Basophils # (Manual) PT INR Fibrinogen dRVVT Confirm Interp Factor V Activity POC ABG pH 7.475 H POC ABG pCO2 33.3 L POC ABG pO2 140 H ABG pO2 ABG HCO3 ABG Base Excess ABG Hemoglobin Oxyhemoglobin Sodium Potassium Chloride Carbon Dioxide BUN Creatinine Glucose POC Glucose 141 H Lactic Acid Calcium Phosphorus Magnesium Direct Bilirubin AST ALT Alkaline Phosphatase Lactate Dehydrogenase Troponin T C-Reactive Protein Total Protein Albumin Prealbumin Triglycerides Cholesterol LDL Cholesterol Direct HDL Cholesterol Urine pH Urine WBC (Auto) Urine Creatinine Urine Total Protein Fluid Total Protein Vancomycin Trough Rheumatoid Factor Complement C4 Miscellaneous Test Crossmatch 10/05/16 10/05/16 10/05/16 05:00 05:09 12:58 WBC RBC Hgb Hct MCV MCH MCHC RDW Plt Count Lymph % (Auto) [place] % (Auto) Lymph # [place] # Baso # Seg Neutrophils % Seg Neuts % (Manual) Lymphocytes % (Manual) Monocytes % (Manual) Eosinophils % (Manual) Basophils % (Manual) Nucleated RBC % Seg Neutrophils # Seg Neutrophils # Man Lymphocytes # (Manual) Monocytes # (Manual) Eosinophils # (Manual) Basophils # (Manual) PT INR Fibrinogen dRVVT Confirm Interp Factor V Activity POC ABG pH POC ABG pCO2 POC ABG pO2 ABG pO2 ABG HCO3 ABG Base Excess ABG Hemoglobin Oxyhemoglobin Sodium 131 L Potassium Chloride 94.0 L Carbon Dioxide 20 L BUN 22 H Creatinine 2.0 H Glucose 123 H POC Glucose 166 H 179 H Lactic Acid Calcium 7.7 L Phosphorus 2.20 L D Magnesium Direct Bilirubin AST ALT Alkaline Phosphatase Lactate Dehydrogenase Troponin T C-Reactive Protein Total Protein Albumin Prealbumin Triglycerides Cholesterol LDL Cholesterol Direct HDL Cholesterol Urine pH Urine WBC (Auto) Urine Creatinine Urine Total Protein Fluid Total Protein Vancomycin Trough Rheumatoid Factor Complement C4 Miscellaneous Test Crossmatch 10/05/16 10/05/16 10/05/16 15:50 18:53 23:12 WBC RBC Hgb Hct MCV MCH MCHC RDW Plt Count Lymph % (Auto) [place] % (Auto) Lymph # [place] # Baso # Seg Neutrophils % Seg Neuts % (Manual) Lymphocytes % (Manual) Monocytes % (Manual) Eosinophils % (Manual) Basophils % (Manual) Nucleated RBC % Seg Neutrophils # Seg Neutrophils # Man Lymphocytes # (Manual) Monocytes # (Manual) Eosinophils # (Manual) Basophils # (Manual) PT INR Fibrinogen dRVVT Confirm Interp Factor V Activity POC ABG pH POC ABG pCO2 POC ABG pO2 ABG pO2 ABG HCO3 ABG Base Excess ABG Hemoglobin Oxyhemoglobin Sodium Potassium Chloride Carbon Dioxide BUN Creatinine Glucose POC Glucose 150 H 164 H Lactic Acid Calcium Phosphorus Magnesium Direct Bilirubin AST ALT Alkaline Phosphatase Lactate Dehydrogenase Troponin T C-Reactive Protein Total Protein Albumin Prealbumin Triglycerides Cholesterol LDL Cholesterol Direct HDL Cholesterol Urine pH Urine WBC (Auto) Urine Creatinine Urine Total Protein Fluid Total Protein Vancomycin Trough Rheumatoid Factor Complement C4 Miscellaneous Test Crossmatch See Detail 10/06/16 10/06/16 10/06/16 03:50 03:50 04:53 WBC RBC 3.00 L Hgb 8.6 L Hct 25.8 L MCV MCH MCHC RDW 17.9 H Plt Count 65 L Lymph % (Auto) [place] % (Auto) Lymph # [place] # Baso # Seg Neutrophils % Seg Neuts % (Manual) 30.0 L Lymphocytes % (Manual) 5.0 L Monocytes % (Manual) Eosinophils % (Manual) Basophils % (Manual) Nucleated RBC % Seg Neutrophils # Seg Neutrophils # Man Lymphocytes # (Manual) 0.4 L Monocytes # (Manual) Eosinophils # (Manual) Basophils # (Manual) PT INR Fibrinogen dRVVT Confirm Interp Factor V Activity POC ABG pH 7.310 L POC ABG pCO2 49.0 H POC ABG pO2 ABG pO2 ABG HCO3 ABG Base Excess ABG Hemoglobin Oxyhemoglobin Sodium 133 L Potassium Chloride 95.9 L Carbon Dioxide BUN 26 H Creatinine 2.0 H Glucose 116 H POC Glucose Lactic Acid Calcium 7.8 L Phosphorus Magnesium Direct Bilirubin AST ALT Alkaline Phosphatase Lactate Dehydrogenase Troponin T C-Reactive Protein Total Protein Albumin Prealbumin Triglycerides Cholesterol LDL Cholesterol Direct HDL Cholesterol Urine pH Urine WBC (Auto) Urine Creatinine Urine Total Protein Fluid Total Protein Vancomycin Trough Rheumatoid Factor Complement C4 Miscellaneous Test Crossmatch 10/06/16 10/06/16 10/06/16 05:23 11:52 18:34 WBC RBC Hgb Hct MCV MCH MCHC RDW Plt Count Lymph % (Auto) [place] % (Auto) Lymph # [place] # Baso # Seg Neutrophils % Seg Neuts % (Manual) Lymphocytes % (Manual) Monocytes % (Manual) Eosinophils % (Manual) Basophils % (Manual) Nucleated RBC % Seg Neutrophils # Seg Neutrophils # Man Lymphocytes # (Manual) Monocytes # (Manual) Eosinophils # (Manual) Basophils # (Manual) PT INR Fibrinogen dRVVT Confirm Interp Factor V Activity POC ABG pH POC ABG pCO2 POC ABG pO2 ABG pO2 ABG HCO3 ABG Base Excess ABG Hemoglobin Oxyhemoglobin Sodium Potassium Chloride Carbon Dioxide BUN Creatinine Glucose POC Glucose 126 H 116 H 129 H Lactic Acid Calcium Phosphorus Magnesium Direct Bilirubin AST ALT Alkaline Phosphatase Lactate Dehydrogenase Troponin T C-Reactive Protein Total Protein Albumin Prealbumin Triglycerides Cholesterol LDL Cholesterol Direct HDL Cholesterol Urine pH Urine WBC (Auto) Urine Creatinine Urine Total Protein Fluid Total Protein Vancomycin Trough Rheumatoid Factor Complement C4 Miscellaneous Test Crossmatch 10/07/16 10/07/16 10/07/16 03:45 05:00 10:00 WBC 17.0 H RBC 2.68 L Hgb 7.3 L Hct 25.3 L MCV MCH 27 L MCHC 29 L RDW 19.6 H Plt Count 74 L Lymph % (Auto) [place] % (Auto) Lymph # [place] # Baso # Seg Neutrophils % Seg Neuts % (Manual) Lymphocytes % (Manual) 12.0 L Monocytes % (Manual) Eosinophils % (Manual) Basophils % (Manual) Nucleated RBC % 4.0 H Seg Neutrophils # Seg Neutrophils # Man 10.7 H Lymphocytes # (Manual) Monocytes # (Manual) Eosinophils # (Manual) Basophils # (Manual) PT INR Fibrinogen dRVVT Confirm Interp Factor V Activity POC ABG pH POC ABG pCO2 POC ABG pO2 ABG pO2 ABG HCO3 ABG Base Excess ABG Hemoglobin Oxyhemoglobin Sodium 130 L Potassium 3.2 L Chloride 93.9 L Carbon Dioxide 20 L BUN 44 H Creatinine 2.7 H Glucose 129 H POC Glucose Lactic Acid Calcium 7.4 L Phosphorus Magnesium Direct Bilirubin AST ALT 6 L Alkaline Phosphatase 195 H Lactate Dehydrogenase Troponin T C-Reactive Protein Total Protein 4.9 L Albumin 1.0 L Prealbumin Triglycerides Cholesterol LDL Cholesterol Direct HDL Cholesterol Urine pH Urine WBC (Auto) Urine Creatinine Urine Total Protein Fluid Total Protein Vancomycin Trough Rheumatoid Factor Complement C4 Miscellaneous Test Flexitest 1 H Crossmatch 10/07/16 10/07/16 10/07/16 10:00 11:24 18:10 WBC RBC Hgb Hct MCV MCH MCHC RDW Plt Count Lymph % (Auto) [place] % (Auto) Lymph # [place] # Baso # Seg Neutrophils % Seg Neuts % (Manual) Lymphocytes % (Manual) Monocytes % (Manual) Eosinophils % (Manual) Basophils % (Manual) Nucleated RBC % Seg Neutrophils # Seg Neutrophils # Man Lymphocytes # (Manual) Monocytes # (Manual) Eosinophils # (Manual) Basophils # (Manual) PT INR Fibrinogen dRVVT Confirm Interp Factor V Activity POC ABG pH POC ABG pCO2 POC ABG pO2 ABG pO2 ABG HCO3 ABG Base Excess ABG Hemoglobin Oxyhemoglobin Sodium Potassium Chloride Carbon Dioxide BUN Creatinine Glucose POC Glucose 116 H 130 H Lactic Acid Calcium Phosphorus Magnesium Direct Bilirubin AST ALT Alkaline Phosphatase Lactate Dehydrogenase Troponin T C-Reactive Protein 19.40 H Total Protein Albumin Prealbumin Triglycerides Cholesterol LDL Cholesterol Direct HDL Cholesterol Urine pH Urine WBC (Auto) Urine Creatinine Urine Total Protein Fluid Total Protein Vancomycin Trough Rheumatoid Factor Complement C4 Miscellaneous Test Crossmatch 10/07/16 10/08/16 10/08/16 18:30 00:00 04:00 WBC RBC Hgb Hct MCV MCH MCHC RDW Plt Count Lymph % (Auto) [place] % (Auto) Lymph # [place] # Baso # Seg Neutrophils % Seg Neuts % (Manual) Lymphocytes % (Manual) Monocytes % (Manual) Eosinophils % (Manual) Basophils % (Manual) Nucleated RBC % Seg Neutrophils # Seg Neutrophils # Man Lymphocytes # (Manual) Monocytes # (Manual) Eosinophils # (Manual) Basophils # (Manual) PT INR Fibrinogen dRVVT Confirm Interp Factor V Activity POC ABG pH POC ABG pCO2 POC ABG pO2 ABG pO2 ABG HCO3 ABG Base Excess ABG Hemoglobin Oxyhemoglobin Sodium 132 L Potassium 3.3 L Chloride 93.6 L Carbon Dioxide 17 L BUN 59 H Creatinine 2.7 H Glucose 121 H POC Glucose 122 H Lactic Acid Calcium 7.6 L Phosphorus Magnesium Direct Bilirubin AST ALT Alkaline Phosphatase Lactate Dehydrogenase Troponin T C-Reactive Protein Total Protein Albumin Prealbumin Triglycerides Cholesterol LDL Cholesterol Direct HDL Cholesterol Urine pH Urine WBC (Auto) > 182.0 H Urine Creatinine Urine Total Protein Fluid Total Protein Vancomycin Trough Rheumatoid Factor Complement C4 Miscellaneous Test Crossmatch 10/08/16 10/08/16 10/08/16 04:30 05:30 11:51 WBC RBC 5.15 H Hgb 14.4 H D Hct 44.5 H D MCV MCH MCHC RDW 19.5 H Plt Count 56 L Lymph % (Auto) [place] % (Auto) Lymph # [place] # Baso # Seg Neutrophils % Seg Neuts % (Manual) 24.0 L Lymphocytes % (Manual) 8.0 L Monocytes % (Manual) Eosinophils % (Manual) Basophils % (Manual) Nucleated RBC % 9.0 H Seg Neutrophils # Seg Neutrophils # Man Lymphocytes # (Manual) 0.7 L Monocytes # (Manual) Eosinophils # (Manual) Basophils # (Manual) PT INR Fibrinogen dRVVT Confirm Interp Factor V Activity POC ABG pH POC ABG pCO2 POC ABG pO2 ABG pO2 ABG HCO3 ABG Base Excess ABG Hemoglobin Oxyhemoglobin Sodium Potassium Chloride Carbon Dioxide BUN Creatinine Glucose POC Glucose 125 H 150 H Lactic Acid Calcium Phosphorus Magnesium Direct Bilirubin AST ALT Alkaline Phosphatase Lactate Dehydrogenase Troponin T C-Reactive Protein Total Protein Albumin Prealbumin Triglycerides Cholesterol LDL Cholesterol Direct HDL Cholesterol Urine pH Urine WBC (Auto) Urine Creatinine Urine Total Protein Fluid Total Protein Vancomycin Trough Rheumatoid Factor Complement C4 Miscellaneous Test Crossmatch 10/08/16 10/08/16 10/08/16 12:49 17:07 19:30 WBC RBC Hgb 7.1 L D Hct 22.4 L D MCV MCH MCHC RDW Plt Count Lymph % (Auto) [place] % (Auto) Lymph # [place] # Baso # Seg Neutrophils % Seg Neuts % (Manual) Lymphocytes % (Manual) Monocytes % (Manual) Eosinophils % (Manual) Basophils % (Manual) Nucleated RBC % Seg Neutrophils # Seg Neutrophils # Man Lymphocytes # (Manual) Monocytes # (Manual) Eosinophils # (Manual) Basophils # (Manual) PT INR Fibrinogen dRVVT Confirm Interp Factor V Activity POC ABG pH POC ABG pCO2 28.2 L POC ABG pO2 111 H ABG pO2 ABG HCO3 ABG Base Excess ABG Hemoglobin Oxyhemoglobin Sodium Potassium Chloride Carbon Dioxide BUN Creatinine Glucose POC Glucose 145 H Lactic Acid Calcium Phosphorus Magnesium Direct Bilirubin AST ALT Alkaline Phosphatase Lactate Dehydrogenase Troponin T C-Reactive Protein Total Protein Albumin Prealbumin Triglycerides Cholesterol LDL Cholesterol Direct HDL Cholesterol Urine pH Urine WBC (Auto) Urine Creatinine Urine Total Protein Fluid Total Protein Vancomycin Trough Rheumatoid Factor Complement C4 Miscellaneous Test Crossmatch 10/08/16 10/09/16 10/09/16 19:30 03:45 03:45 WBC 12.6 H RBC 2.36 L Hgb 6.7 L Hct 21.1 L MCV MCH MCHC RDW 19.5 H Plt Count 75 L Lymph % (Auto) [place] % (Auto) Lymph # [place] # Baso # Seg Neutrophils % Seg Neuts % (Manual) Lymphocytes % (Manual) Monocytes % (Manual) 10.0 H Eosinophils % (Manual) Basophils % (Manual) Nucleated RBC % 3.0 H Seg Neutrophils # Seg Neutrophils # Man Lymphocytes # (Manual) Monocytes # (Manual) 1.3 H Eosinophils # (Manual) Basophils # (Manual) PT 18.0 H INR 1.41 H Fibrinogen dRVVT Confirm Interp Factor V Activity POC ABG pH POC ABG pCO2 POC ABG pO2 ABG pO2 ABG HCO3 ABG Base Excess ABG Hemoglobin Oxyhemoglobin Sodium 135 L Potassium Chloride Carbon Dioxide 17 L BUN 81 H Creatinine 3.2 H Glucose 109 H POC Glucose Lactic Acid Calcium 7.4 L Phosphorus 4.60 H D Magnesium Direct Bilirubin AST ALT Alkaline Phosphatase Lactate Dehydrogenase Troponin T C-Reactive Protein Total Protein Albumin Prealbumin Triglycerides Cholesterol LDL Cholesterol Direct HDL Cholesterol Urine pH Urine WBC (Auto) Urine Creatinine Urine Total Protein Fluid Total Protein Vancomycin Trough Rheumatoid Factor Complement C4 Miscellaneous Test Crossmatch 10/09/16 10/09/16 10/09/16 03:45 05:14 07:20 WBC RBC Hgb Hct MCV MCH MCHC RDW Plt Count Lymph % (Auto) [place] % (Auto) Lymph # [place] # Baso # Seg Neutrophils % Seg Neuts % (Manual) Lymphocytes % (Manual) Monocytes % (Manual) Eosinophils % (Manual) Basophils % (Manual) Nucleated RBC % Seg Neutrophils # Seg Neutrophils # Man Lymphocytes # (Manual) Monocytes # (Manual) Eosinophils # (Manual) Basophils # (Manual) PT 19.0 H INR 1.51 H Fibrinogen dRVVT Confirm Interp Factor V Activity POC ABG pH POC ABG pCO2 POC ABG pO2 ABG pO2 ABG HCO3 ABG Base Excess ABG Hemoglobin Oxyhemoglobin Sodium Potassium Chloride Carbon Dioxide BUN Creatinine Glucose POC Glucose 151 H Lactic Acid Calcium Phosphorus Magnesium Direct Bilirubin AST ALT Alkaline Phosphatase Lactate Dehydrogenase Troponin T C-Reactive Protein Total Protein Albumin Prealbumin Triglycerides Cholesterol LDL Cholesterol Direct HDL Cholesterol Urine pH Urine WBC (Auto) Urine Creatinine Urine Total Protein Fluid Total Protein Vancomycin Trough Rheumatoid Factor Complement C4 Miscellaneous Test Crossmatch See Detail 10/09/16 10/09/16 10/09/16 11:46 16:20 16:43 WBC RBC Hgb 7.2 L Hct 22.2 L MCV MCH MCHC RDW Plt Count Lymph % (Auto) [place] % (Auto) Lymph # [place] # Baso # Seg Neutrophils % Seg Neuts % (Manual) Lymphocytes % (Manual) Monocytes % (Manual) Eosinophils % (Manual) Basophils % (Manual) Nucleated RBC % Seg Neutrophils # Seg Neutrophils # Man Lymphocytes # (Manual) Monocytes # (Manual) Eosinophils # (Manual) Basophils # (Manual) PT INR Fibrinogen dRVVT Confirm Interp Factor V Activity POC ABG pH POC ABG pCO2 POC ABG pO2 ABG pO2 ABG HCO3 ABG Base Excess ABG Hemoglobin Oxyhemoglobin Sodium Potassium Chloride Carbon Dioxide BUN Creatinine Glucose POC Glucose 133 H 141 H Lactic Acid Calcium Phosphorus Magnesium Direct Bilirubin AST ALT Alkaline Phosphatase Lactate Dehydrogenase Troponin T C-Reactive Protein Total Protein Albumin Prealbumin Triglycerides Cholesterol LDL Cholesterol Direct HDL Cholesterol Urine pH Urine WBC (Auto) Urine Creatinine Urine Total Protein Fluid Total Protein Vancomycin Trough Rheumatoid Factor Complement C4 Miscellaneous Test Crossmatch 10/10/16 10/10/16 10/10/16 05:00 05:00 11:19 WBC 18.5 H RBC 2.19 L Hgb 6.4 L Hct 19.6 L* MCV MCH MCHC RDW 19.3 H Plt Count 93 L Lymph % (Auto) [place] % (Auto) Lymph # [place] # Baso # Seg Neutrophils % Seg Neuts % (Manual) Lymphocytes % (Manual) 10.0 L Monocytes % (Manual) Eosinophils % (Manual) Basophils % (Manual) Nucleated RBC % 4.0 H Seg Neutrophils # Seg Neutrophils # Man 11.3 H Lymphocytes # (Manual) Monocytes # (Manual) Eosinophils # (Manual) Basophils # (Manual) PT INR Fibrinogen dRVVT Confirm Interp Factor V Activity POC ABG pH POC ABG pCO2 POC ABG pO2 ABG pO2 ABG HCO3 ABG Base Excess ABG Hemoglobin Oxyhemoglobin Sodium Potassium 5.7 H D Chloride Carbon Dioxide 16 L BUN 94 H Creatinine 3.1 H Glucose 131 H POC Glucose 153 H Lactic Acid Calcium 8.2 L Phosphorus 5.10 H Magnesium 2.40 H Direct Bilirubin 0.3 H AST ALT < 5 L Alkaline Phosphatase 319 H Lactate Dehydrogenase Troponin T C-Reactive Protein Total Protein 5.1 L Albumin 1.0 L Prealbumin Triglycerides Cholesterol LDL Cholesterol Direct HDL Cholesterol Urine pH Urine WBC (Auto) Urine Creatinine Urine Total Protein Fluid Total Protein Vancomycin Trough Rheumatoid Factor Complement C4 Miscellaneous Test Crossmatch 10/10/16 10/10/16 10/11/16 17:50 23:30 04:15 WBC RBC Hgb Hct MCV MCH MCHC RDW Plt Count Lymph % (Auto) [place] % (Auto) Lymph # [place] # Baso # Seg Neutrophils % Seg Neuts % (Manual) Lymphocytes % (Manual) Monocytes % (Manual) Eosinophils % (Manual) Basophils % (Manual) Nucleated RBC % Seg Neutrophils # Seg Neutrophils # Man Lymphocytes # (Manual) Monocytes # (Manual) Eosinophils # (Manual) Basophils # (Manual) PT INR Fibrinogen dRVVT Confirm Interp Factor V Activity POC ABG pH POC ABG pCO2 POC ABG pO2 ABG pO2 ABG HCO3 ABG Base Excess ABG Hemoglobin Oxyhemoglobin Sodium Potassium Chloride 96.4 L Carbon Dioxide 21 L BUN 57 H Creatinine 2.1 H Glucose 151 H POC Glucose 146 H 141 H Lactic Acid Calcium 8.3 L Phosphorus Magnesium Direct Bilirubin AST ALT Alkaline Phosphatase Lactate Dehydrogenase Troponin T C-Reactive Protein Total Protein Albumin Prealbumin Triglycerides Cholesterol LDL Cholesterol Direct HDL Cholesterol Urine pH Urine WBC (Auto) Urine Creatinine Urine Total Protein Fluid Total Protein Vancomycin Trough Rheumatoid Factor Complement C4 Miscellaneous Test Crossmatch 10/11/16 10/11/16 10/11/16 04:15 04:15 05:30 WBC 28.3 H RBC 3.12 L Hgb 9.3 L Hct 28.7 L D MCV MCH MCHC RDW 17.7 H Plt Count 128 L Lymph % (Auto) [place] % (Auto) Lymph # [place] # Baso # Seg Neutrophils % Seg Neuts % (Manual) Lymphocytes % (Manual) Monocytes % (Manual) Eosinophils % (Manual) Basophils % (Manual) Nucleated RBC % Seg Neutrophils # Seg Neutrophils # Man Lymphocytes # (Manual) Monocytes # (Manual) Eosinophils # (Manual) Basophils # (Manual) PT INR Fibrinogen dRVVT Confirm Interp Factor V Activity POC ABG pH POC ABG pCO2 POC ABG pO2 ABG pO2 ABG HCO3 ABG Base Excess ABG Hemoglobin Oxyhemoglobin Sodium Potassium Chloride Carbon Dioxide BUN Creatinine Glucose POC Glucose 167 H Lactic Acid Calcium Phosphorus Magnesium Direct Bilirubin AST ALT Alkaline Phosphatase Lactate Dehydrogenase Troponin T C-Reactive Protein 15.80 H Total Protein Albumin Prealbumin Triglycerides Cholesterol LDL Cholesterol Direct HDL Cholesterol Urine pH Urine WBC (Auto) Urine Creatinine Urine Total Protein Fluid Total Protein Vancomycin Trough Rheumatoid Factor Complement C4 Miscellaneous Test Crossmatch 10/11/16 10/11/16 10/11/16 11:40 15:49 23:57 WBC RBC Hgb Hct MCV MCH MCHC RDW Plt Count Lymph % (Auto) [place] % (Auto) Lymph # [place] # Baso # Seg Neutrophils % Seg Neuts % (Manual) Lymphocytes % (Manual) Monocytes % (Manual) Eosinophils % (Manual) Basophils % (Manual) Nucleated RBC % Seg Neutrophils # Seg Neutrophils # Man Lymphocytes # (Manual) Monocytes # (Manual) Eosinophils # (Manual) Basophils # (Manual) PT INR Fibrinogen dRVVT Confirm Interp Factor V Activity POC ABG pH POC ABG pCO2 POC ABG pO2 ABG pO2 ABG HCO3 ABG Base Excess ABG Hemoglobin Oxyhemoglobin Sodium Potassium Chloride Carbon Dioxide BUN Creatinine Glucose POC Glucose 139 H 168 H 161 H Lactic Acid Calcium Phosphorus Magnesium Direct Bilirubin AST ALT Alkaline Phosphatase Lactate Dehydrogenase Troponin T C-Reactive Protein Total Protein Albumin Prealbumin Triglycerides Cholesterol LDL Cholesterol Direct HDL Cholesterol Urine pH Urine WBC (Auto) Urine Creatinine Urine Total Protein Fluid Total Protein Vancomycin Trough Rheumatoid Factor Complement C4 Miscellaneous Test Crossmatch 10/12/16 10/12/16 10/12/16 04:40 04:40 05:44 WBC 22.5 H RBC 2.88 L Hgb 8.8 L Hct 26.8 L MCV MCH MCHC RDW 17.8 H Plt Count Lymph % (Auto) [place] % (Auto) Lymph # [place] # Baso # Seg Neutrophils % Seg Neuts % (Manual) Lymphocytes % (Manual) Monocytes % (Manual) Eosinophils % (Manual) Basophils % (Manual) Nucleated RBC % Seg Neutrophils # Seg Neutrophils # Man Lymphocytes # (Manual) Monocytes # (Manual) Eosinophils # (Manual) Basophils # (Manual) PT INR Fibrinogen dRVVT Confirm Interp Factor V Activity POC ABG pH POC ABG pCO2 POC ABG pO2 ABG pO2 ABG HCO3 ABG Base Excess ABG Hemoglobin Oxyhemoglobin Sodium 134 L Potassium Chloride 93.0 L Carbon Dioxide BUN 74 H Creatinine 2.5 H Glucose 137 H POC Glucose 158 H Lactic Acid Calcium 8.2 L Phosphorus Magnesium Direct Bilirubin AST ALT Alkaline Phosphatase Lactate Dehydrogenase Troponin T C-Reactive Protein Total Protein Albumin Prealbumin Triglycerides Cholesterol LDL Cholesterol Direct HDL Cholesterol Urine pH Urine WBC (Auto) Urine Creatinine Urine Total Protein Fluid Total Protein Vancomycin Trough Rheumatoid Factor Complement C4 Miscellaneous Test Crossmatch 10/12/16 10/12/16 10/12/16 12:27 18:18 23:46 WBC RBC Hgb Hct MCV MCH MCHC RDW Plt Count Lymph % (Auto) [place] % (Auto) Lymph # [place] # Baso # Seg Neutrophils % Seg Neuts % (Manual) Lymphocytes % (Manual) Monocytes % (Manual) Eosinophils % (Manual) Basophils % (Manual) Nucleated RBC % Seg Neutrophils # Seg Neutrophils # Man Lymphocytes # (Manual) Monocytes # (Manual) Eosinophils # (Manual) Basophils # (Manual) PT INR Fibrinogen dRVVT Confirm Interp Factor V Activity POC ABG pH POC ABG pCO2 POC ABG pO2 ABG pO2 ABG HCO3 ABG Base Excess ABG Hemoglobin Oxyhemoglobin Sodium Potassium Chloride Carbon Dioxide BUN Creatinine Glucose POC Glucose 153 H 140 H 150 H Lactic Acid Calcium Phosphorus Magnesium Direct Bilirubin AST ALT Alkaline Phosphatase Lactate Dehydrogenase Troponin T C-Reactive Protein Total Protein Albumin Prealbumin Triglycerides Cholesterol LDL Cholesterol Direct HDL Cholesterol Urine pH Urine WBC (Auto) Urine Creatinine Urine Total Protein Fluid Total Protein Vancomycin Trough Rheumatoid Factor Complement C4 Miscellaneous Test Crossmatch 10/13/16 10/13/16 10/13/16 06:22 09:20 12:29 WBC RBC Hgb Hct MCV MCH MCHC RDW Plt Count Lymph % (Auto) [place] % (Auto) Lymph # [place] # Baso # Seg Neutrophils % Seg Neuts % (Manual) Lymphocytes % (Manual) Monocytes % (Manual) Eosinophils % (Manual) Basophils % (Manual) Nucleated RBC % Seg Neutrophils # Seg Neutrophils # Man Lymphocytes # (Manual) Monocytes # (Manual) Eosinophils # (Manual) Basophils # (Manual) PT INR Fibrinogen dRVVT Confirm Interp Factor V Activity POC ABG pH POC ABG pCO2 POC ABG pO2 ABG pO2 ABG HCO3 ABG Base Excess ABG Hemoglobin Oxyhemoglobin Sodium Potassium Chloride Carbon Dioxide BUN Creatinine Glucose POC Glucose 165 H 193 H Lactic Acid Calcium Phosphorus Magnesium Direct Bilirubin AST ALT Alkaline Phosphatase Lactate Dehydrogenase Troponin T C-Reactive Protein Total Protein Albumin Prealbumin Triglycerides Cholesterol LDL Cholesterol Direct HDL Cholesterol Urine pH Urine WBC (Auto) Urine Creatinine Urine Total Protein Fluid Total Protein Vancomycin Trough Rheumatoid Factor Complement C4 Miscellaneous Test Flexitest 1 H Crossmatch 10/13/16 10/13/16 10/13/16 18:09 Unknown Unknown WBC 23.4 H RBC 2.83 L Hgb 8.7 L Hct 26.1 L MCV MCH MCHC RDW 18.1 H Plt Count Lymph % (Auto) [place] % (Auto) Lymph # [place] # Baso # Seg Neutrophils % Seg Neuts % (Manual) Lymphocytes % (Manual) Monocytes % (Manual) Eosinophils % (Manual) Basophils % (Manual) Nucleated RBC % Seg Neutrophils # Seg Neutrophils # Man Lymphocytes # (Manual) Monocytes # (Manual) Eosinophils # (Manual) Basophils # (Manual) PT INR Fibrinogen dRVVT Confirm Interp Factor V Activity POC ABG pH POC ABG pCO2 POC ABG pO2 ABG pO2 ABG HCO3 ABG Base Excess ABG Hemoglobin Oxyhemoglobin Sodium Potassium Chloride 95.8 L Carbon Dioxide BUN 82 H Creatinine 2.6 H Glucose 152 H POC Glucose 166 H Lactic Acid Calcium Phosphorus Magnesium Direct Bilirubin AST ALT Alkaline Phosphatase Lactate Dehydrogenase Troponin T C-Reactive Protein Total Protein Albumin Prealbumin Triglycerides Cholesterol LDL Cholesterol Direct HDL Cholesterol Urine pH Urine WBC (Auto) Urine Creatinine Urine Total Protein Fluid Total Protein Vancomycin Trough Rheumatoid Factor Complement C4 Miscellaneous Test Crossmatch 10/14/16 10/14/16 10/14/16 05:38 06:35 08:10 WBC 20.7 H RBC 2.81 L Hgb 8.4 L Hct 27.2 L MCV MCH MCHC RDW 19.4 H Plt Count Lymph % (Auto) [place] % (Auto) Lymph # [place] # Baso # Seg Neutrophils % Seg Neuts % (Manual) Lymphocytes % (Manual) Monocytes % (Manual) Eosinophils % (Manual) Basophils % (Manual) Nucleated RBC % Seg Neutrophils # Seg Neutrophils # Man Lymphocytes # (Manual) Monocytes # (Manual) Eosinophils # (Manual) Basophils # (Manual) PT INR Fibrinogen dRVVT Confirm Interp Factor V Activity POC ABG pH POC ABG pCO2 POC ABG pO2 ABG pO2 ABG HCO3 ABG Base Excess ABG Hemoglobin Oxyhemoglobin Sodium Potassium Chloride Carbon Dioxide BUN 58 H Creatinine 1.9 H Glucose 169 H POC Glucose 195 H Lactic Acid Calcium Phosphorus Magnesium Direct Bilirubin AST ALT Alkaline Phosphatase Lactate Dehydrogenase Troponin T C-Reactive Protein Total Protein Albumin Prealbumin Triglycerides Cholesterol LDL Cholesterol Direct HDL Cholesterol Urine pH Urine WBC (Auto) Urine Creatinine Urine Total Protein Fluid Total Protein Vancomycin Trough Rheumatoid Factor Complement C4 Miscellaneous Test Crossmatch 10/14/16 10/14/16 10/14/16 11:44 17:13 23:28 WBC RBC Hgb Hct MCV MCH MCHC RDW Plt Count Lymph % (Auto) [place] % (Auto) Lymph # [place] # Baso # Seg Neutrophils % Seg Neuts % (Manual) Lymphocytes % (Manual) Monocytes % (Manual) Eosinophils % (Manual) Basophils % (Manual) Nucleated RBC % Seg Neutrophils # Seg Neutrophils # Man Lymphocytes # (Manual) Monocytes # (Manual) Eosinophils # (Manual) Basophils # (Manual) PT INR Fibrinogen dRVVT Confirm Interp Factor V Activity POC ABG pH POC ABG pCO2 POC ABG pO2 ABG pO2 ABG HCO3 ABG Base Excess ABG Hemoglobin Oxyhemoglobin Sodium Potassium Chloride Carbon Dioxide BUN Creatinine Glucose POC Glucose 174 H 121 H 151 H Lactic Acid Calcium Phosphorus Magnesium Direct Bilirubin AST ALT Alkaline Phosphatase Lactate Dehydrogenase Troponin T C-Reactive Protein Total Protein Albumin Prealbumin Triglycerides Cholesterol LDL Cholesterol Direct HDL Cholesterol Urine pH Urine WBC (Auto) Urine Creatinine Urine Total Protein Fluid Total Protein Vancomycin Trough Rheumatoid Factor Complement C4 Miscellaneous Test Crossmatch 10/15/16 10/15/16 10/15/16 05:06 12:26 17:48 WBC RBC Hgb Hct MCV MCH MCHC RDW Plt Count Lymph % (Auto) [place] % (Auto) Lymph # [place] # Baso # Seg Neutrophils % Seg Neuts % (Manual) Lymphocytes % (Manual) Monocytes % (Manual) Eosinophils % (Manual) Basophils % (Manual) Nucleated RBC % Seg Neutrophils # Seg Neutrophils # Man Lymphocytes # (Manual) Monocytes # (Manual) Eosinophils # (Manual) Basophils # (Manual) PT INR Fibrinogen dRVVT Confirm Interp Factor V Activity POC ABG pH POC ABG pCO2 POC ABG pO2 ABG pO2 ABG HCO3 ABG Base Excess ABG Hemoglobin Oxyhemoglobin Sodium Potassium Chloride Carbon Dioxide BUN Creatinine Glucose POC Glucose 151 H 149 H 153 H Lactic Acid Calcium Phosphorus Magnesium Direct Bilirubin AST ALT Alkaline Phosphatase Lactate Dehydrogenase Troponin T C-Reactive Protein Total Protein Albumin Prealbumin Triglycerides Cholesterol LDL Cholesterol Direct HDL Cholesterol Urine pH Urine WBC (Auto) Urine Creatinine Urine Total Protein Fluid Total Protein Vancomycin Trough Rheumatoid Factor Complement C4 Miscellaneous Test Crossmatch 10/15/16 10/15/16 10/16/16 Unknown Unknown 00:02 WBC 23.4 H RBC 2.78 L Hgb 8.5 L Hct 25.7 L MCV MCH MCHC RDW 18.7 H Plt Count Lymph % (Auto) [place] % (Auto) Lymph # [place] # Baso # Seg Neutrophils % Seg Neuts % (Manual) Lymphocytes % (Manual) Monocytes % (Manual) Eosinophils % (Manual) Basophils % (Manual) Nucleated RBC % Seg Neutrophils # Seg Neutrophils # Man Lymphocytes # (Manual) Monocytes # (Manual) Eosinophils # (Manual) Basophils # (Manual) PT INR Fibrinogen dRVVT Confirm Interp Factor V Activity POC ABG pH POC ABG pCO2 POC ABG pO2 ABG pO2 ABG HCO3 ABG Base Excess ABG Hemoglobin Oxyhemoglobin Sodium Potassium Chloride Carbon Dioxide BUN 73 H Creatinine 2.3 H Glucose 120 H POC Glucose 137 H Lactic Acid Calcium Phosphorus Magnesium Direct Bilirubin AST ALT Alkaline Phosphatase Lactate Dehydrogenase Troponin T C-Reactive Protein Total Protein Albumin Prealbumin Triglycerides Cholesterol LDL Cholesterol Direct HDL Cholesterol Urine pH Urine WBC (Auto) Urine Creatinine Urine Total Protein Fluid Total Protein Vancomycin Trough Rheumatoid Factor Complement C4 Miscellaneous Test Crossmatch 10/16/16 10/16/16 10/16/16 05:44 06:25 06:25 WBC 22.5 H RBC 2.76 L Hgb 8.3 L Hct 25.2 L MCV MCH MCHC RDW 18.3 H Plt Count Lymph % (Auto) [place] % (Auto) Lymph # [place] # Baso # Seg Neutrophils % Seg Neuts % (Manual) Lymphocytes % (Manual) Monocytes % (Manual) Eosinophils % (Manual) Basophils % (Manual) Nucleated RBC % Seg Neutrophils # Seg Neutrophils # Man Lymphocytes # (Manual) Monocytes # (Manual) Eosinophils # (Manual) Basophils # (Manual) PT INR Fibrinogen dRVVT Confirm Interp Factor V Activity POC ABG pH POC ABG pCO2 POC ABG pO2 ABG pO2 ABG HCO3 ABG Base Excess ABG Hemoglobin Oxyhemoglobin Sodium Potassium Chloride Carbon Dioxide BUN 92 H Creatinine 3.0 H Glucose 138 H POC Glucose 110 H Lactic Acid Calcium Phosphorus Magnesium Direct Bilirubin AST ALT Alkaline Phosphatase Lactate Dehydrogenase Troponin T C-Reactive Protein Total Protein Albumin Prealbumin Triglycerides Cholesterol LDL Cholesterol Direct HDL Cholesterol Urine pH Urine WBC (Auto) Urine Creatinine Urine Total Protein Fluid Total Protein Vancomycin Trough Rheumatoid Factor Complement C4 Miscellaneous Test Crossmatch 10/16/16 10/16/16 10/16/16 11:27 11:48 17:36 WBC RBC Hgb Hct MCV MCH MCHC RDW Plt Count Lymph % (Auto) [place] % (Auto) Lymph # [place] # Baso # Seg Neutrophils % Seg Neuts % (Manual) Lymphocytes % (Manual) Monocytes % (Manual) Eosinophils % (Manual) Basophils % (Manual) Nucleated RBC % Seg Neutrophils # Seg Neutrophils # Man Lymphocytes # (Manual) Monocytes # (Manual) Eosinophils # (Manual) Basophils # (Manual) PT INR Fibrinogen dRVVT Confirm Interp Factor V Activity POC ABG pH 7.582 H POC ABG pCO2 27.4 L POC ABG pO2 110 H ABG pO2 ABG HCO3 ABG Base Excess ABG Hemoglobin Oxyhemoglobin Sodium Potassium Chloride Carbon Dioxide BUN Creatinine Glucose POC Glucose 121 H 133 H Lactic Acid Calcium Phosphorus Magnesium Direct Bilirubin AST ALT Alkaline Phosphatase Lactate Dehydrogenase Troponin T C-Reactive Protein Total Protein Albumin Prealbumin Triglycerides Cholesterol LDL Cholesterol Direct HDL Cholesterol Urine pH Urine WBC (Auto) Urine Creatinine Urine Total Protein Fluid Total Protein Vancomycin Trough Rheumatoid Factor Complement C4 Miscellaneous Test Crossmatch 10/16/16 10/17/16 10/17/16 20:48 04:24 04:24 WBC 21.4 H RBC 2.72 L Hgb 8.0 L Hct 25.2 L MCV MCH MCHC RDW 18.0 H Plt Count Lymph % (Auto) [place] % (Auto) Lymph # [place] # Baso # Seg Neutrophils % Seg Neuts % (Manual) Lymphocytes % (Manual) Monocytes % (Manual) Eosinophils % (Manual) Basophils % (Manual) Nucleated RBC % Seg Neutrophils # Seg Neutrophils # Man Lymphocytes # (Manual) Monocytes # (Manual) Eosinophils # (Manual) Basophils # (Manual) PT INR Fibrinogen dRVVT Confirm Interp Factor V Activity POC ABG pH 7.561 H POC ABG pCO2 24.4 L POC ABG pO2 77 L ABG pO2 ABG HCO3 ABG Base Excess ABG Hemoglobin Oxyhemoglobin Sodium 148 H Potassium Chloride Carbon Dioxide BUN 104 H Creatinine 3.0 H Glucose 149 H POC Glucose Lactic Acid Calcium Phosphorus Magnesium Direct Bilirubin AST ALT Alkaline Phosphatase 138 H Lactate Dehydrogenase Troponin T C-Reactive Protein Total Protein 6.2 L Albumin 1.5 L Prealbumin Triglycerides Cholesterol LDL Cholesterol Direct HDL Cholesterol Urine pH Urine WBC (Auto) Urine Creatinine Urine Total Protein Fluid Total Protein Vancomycin Trough Rheumatoid Factor Complement C4 Miscellaneous Test Crossmatch 10/17/16 10/17/16 10/17/16 06:02 12:17 17:14 WBC RBC Hgb Hct MCV MCH MCHC RDW Plt Count Lymph % (Auto) [place] % (Auto) Lymph # [place] # Baso # Seg Neutrophils % Seg Neuts % (Manual) Lymphocytes % (Manual) Monocytes % (Manual) Eosinophils % (Manual) Basophils % (Manual) Nucleated RBC % Seg Neutrophils # Seg Neutrophils # Man Lymphocytes # (Manual) Monocytes # (Manual) Eosinophils # (Manual) Basophils # (Manual) PT INR Fibrinogen dRVVT Confirm Interp Factor V Activity POC ABG pH POC ABG pCO2 POC ABG pO2 ABG pO2 ABG HCO3 ABG Base Excess ABG Hemoglobin Oxyhemoglobin Sodium Potassium Chloride Carbon Dioxide BUN Creatinine Glucose POC Glucose 170 H 167 H 126 H Lactic Acid Calcium Phosphorus Magnesium Direct Bilirubin AST ALT Alkaline Phosphatase Lactate Dehydrogenase Troponin T C-Reactive Protein Total Protein Albumin Prealbumin Triglycerides Cholesterol LDL Cholesterol Direct HDL Cholesterol Urine pH Urine WBC (Auto) Urine Creatinine Urine Total Protein Fluid Total Protein Vancomycin Trough Rheumatoid Factor Complement C4 Miscellaneous Test Crossmatch 10/17/16 10/18/16 10/18/16 23:17 04:00 04:00 WBC 20.7 H RBC 2.47 L Hgb 7.4 L Hct 22.9 L MCV MCH MCHC RDW 17.5 H Plt Count Lymph % (Auto) [place] % (Auto) Lymph # [place] # Baso # Seg Neutrophils % Seg Neuts % (Manual) Lymphocytes % (Manual) Monocytes % (Manual) Eosinophils % (Manual) Basophils % (Manual) Nucleated RBC % Seg Neutrophils # Seg Neutrophils # Man Lymphocytes # (Manual) Monocytes # (Manual) Eosinophils # (Manual) Basophils # (Manual) PT INR Fibrinogen dRVVT Confirm Interp Factor V Activity POC ABG pH POC ABG pCO2 POC ABG pO2 ABG pO2 ABG HCO3 ABG Base Excess ABG Hemoglobin Oxyhemoglobin Sodium 149 H Potassium Chloride 107.9 H Carbon Dioxide 20 L BUN 117 H Creatinine 3.2 H Glucose 119 H POC Glucose 121 H Lactic Acid Calcium Phosphorus Magnesium Direct Bilirubin AST ALT Alkaline Phosphatase Lactate Dehydrogenase Troponin T C-Reactive Protein Total Protein Albumin Prealbumin Triglycerides Cholesterol LDL Cholesterol Direct HDL Cholesterol Urine pH Urine WBC (Auto) Urine Creatinine Urine Total Protein Fluid Total Protein Vancomycin Trough Rheumatoid Factor Complement C4 Miscellaneous Test Crossmatch 10/18/16 10/18/16 10/18/16 05:23 10:46 17:30 WBC RBC Hgb Hct MCV MCH MCHC RDW Plt Count Lymph % (Auto) [place] % (Auto) Lymph # [place] # Baso # Seg Neutrophils % Seg Neuts % (Manual) Lymphocytes % (Manual) Monocytes % (Manual) Eosinophils % (Manual) Basophils % (Manual) Nucleated RBC % Seg Neutrophils # Seg Neutrophils # Man Lymphocytes # (Manual) Monocytes # (Manual) Eosinophils # (Manual) Basophils # (Manual) PT INR Fibrinogen dRVVT Confirm Interp Factor V Activity POC ABG pH POC ABG pCO2 POC ABG pO2 ABG pO2 ABG HCO3 ABG Base Excess ABG Hemoglobin Oxyhemoglobin Sodium Potassium Chloride Carbon Dioxide BUN Creatinine Glucose POC Glucose 119 H 155 H 124 H Lactic Acid Calcium Phosphorus Magnesium Direct Bilirubin AST ALT Alkaline Phosphatase Lactate Dehydrogenase Troponin T C-Reactive Protein Total Protein Albumin Prealbumin Triglycerides Cholesterol LDL Cholesterol Direct HDL Cholesterol Urine pH Urine WBC (Auto) Urine Creatinine Urine Total Protein Fluid Total Protein Vancomycin Trough Rheumatoid Factor Complement C4 Miscellaneous Test Crossmatch 10/19/16 10/19/16 10/19/16 04:00 04:00 05:25 WBC 17.4 H RBC 2.54 L Hgb 7.7 L Hct 23.6 L MCV MCH MCHC RDW 17.3 H Plt Count Lymph % (Auto) [place] % (Auto) Lymph # [place] # Baso # Seg Neutrophils % Seg Neuts % (Manual) Lymphocytes % (Manual) Monocytes % (Manual) Eosinophils % (Manual) Basophils % (Manual) Nucleated RBC % Seg Neutrophils # Seg Neutrophils # Man Lymphocytes # (Manual) Monocytes # (Manual) Eosinophils # (Manual) Basophils # (Manual) PT INR Fibrinogen dRVVT Confirm Interp Factor V Activity POC ABG pH POC ABG pCO2 POC ABG pO2 ABG pO2 ABG HCO3 ABG Base Excess ABG Hemoglobin Oxyhemoglobin Sodium Potassium Chloride Carbon Dioxide BUN 72 H Creatinine 2.1 H Glucose 116 H POC Glucose 119 H Lactic Acid Calcium Phosphorus Magnesium Direct Bilirubin AST ALT Alkaline Phosphatase Lactate Dehydrogenase Troponin T C-Reactive Protein Total Protein Albumin Prealbumin Triglycerides Cholesterol LDL Cholesterol Direct HDL Cholesterol Urine pH Urine WBC (Auto) Urine Creatinine Urine Total Protein Fluid Total Protein Vancomycin Trough Rheumatoid Factor Complement C4 Miscellaneous Test Crossmatch 10/19/16 10/19/16 10/20/16 11:46 23:59 06:00 WBC RBC Hgb Hct MCV MCH MCHC RDW Plt Count Lymph % (Auto) [place] % (Auto) Lymph # [place] # Baso # Seg Neutrophils % Seg Neuts % (Manual) Lymphocytes % (Manual) Monocytes % (Manual) Eosinophils % (Manual) Basophils % (Manual) Nucleated RBC % Seg Neutrophils # Seg Neutrophils # Man Lymphocytes # (Manual) Monocytes # (Manual) Eosinophils # (Manual) Basophils # (Manual) PT INR Fibrinogen dRVVT Confirm Interp Factor V Activity POC ABG pH POC ABG pCO2 POC ABG pO2 ABG pO2 ABG HCO3 ABG Base Excess ABG Hemoglobin Oxyhemoglobin Sodium Potassium Chloride Carbon Dioxide 17 L BUN 94 H Creatinine 2.7 H Glucose POC Glucose 116 H 117 H Lactic Acid Calcium Phosphorus Magnesium Direct Bilirubin AST ALT Alkaline Phosphatase Lactate Dehydrogenase Troponin T C-Reactive Protein Total Protein Albumin Prealbumin Triglycerides Cholesterol LDL Cholesterol Direct HDL Cholesterol Urine pH Urine WBC (Auto) Urine Creatinine Urine Total Protein Fluid Total Protein Vancomycin Trough Rheumatoid Factor Complement C4 Miscellaneous Test Crossmatch 10/20/16 10/20/16 10/20/16 06:00 11:49 16:00 WBC 19.7 H RBC 2.51 L Hgb 7.7 L Hct 23.5 L MCV MCH MCHC RDW 17.5 H Plt Count Lymph % (Auto) [place] % (Auto) Lymph # [place] # Baso # Seg Neutrophils % Seg Neuts % (Manual) Lymphocytes % (Manual) Monocytes % (Manual) Eosinophils % (Manual) Basophils % (Manual) Nucleated RBC % Seg Neutrophils # Seg Neutrophils # Man Lymphocytes # (Manual) Monocytes # (Manual) Eosinophils # (Manual) Basophils # (Manual) PT INR Fibrinogen dRVVT Confirm Interp Factor V Activity POC ABG pH POC ABG pCO2 POC ABG pO2 ABG pO2 ABG HCO3 ABG Base Excess ABG Hemoglobin Oxyhemoglobin Sodium Potassium Chloride Carbon Dioxide BUN Creatinine Glucose POC Glucose 117 H Lactic Acid Calcium Phosphorus Magnesium Direct Bilirubin AST ALT Alkaline Phosphatase Lactate Dehydrogenase Troponin T C-Reactive Protein Total Protein Albumin Prealbumin Triglycerides Cholesterol LDL Cholesterol Direct HDL Cholesterol Urine pH Urine WBC (Auto) Urine Creatinine Urine Total Protein Fluid Total Protein Vancomycin Trough Rheumatoid Factor Complement C4 Miscellaneous Test Flexitest 1 H Crossmatch 10/20/16 10/20/16 10/21/16 18:36 23:39 04:00 WBC RBC Hgb Hct MCV MCH MCHC RDW Plt Count Lymph % (Auto) [place] % (Auto) Lymph # [place] # Baso # Seg Neutrophils % Seg Neuts % (Manual) Lymphocytes % (Manual) Monocytes % (Manual) Eosinophils % (Manual) Basophils % (Manual) Nucleated RBC % Seg Neutrophils # Seg Neutrophils # Man Lymphocytes # (Manual) Monocytes # (Manual) Eosinophils # (Manual) Basophils # (Manual) PT INR Fibrinogen dRVVT Confirm Interp Factor V Activity POC ABG pH POC ABG pCO2 POC ABG pO2 ABG pO2 ABG HCO3 ABG Base Excess ABG Hemoglobin Oxyhemoglobin Sodium Potassium 5.4 H D Chloride Carbon Dioxide 15 L BUN 110 H Creatinine 3.0 H Glucose POC Glucose 127 H 114 H Lactic Acid Calcium Phosphorus Magnesium Direct Bilirubin AST ALT Alkaline Phosphatase Lactate Dehydrogenase Troponin T C-Reactive Protein Total Protein Albumin Prealbumin Triglycerides Cholesterol LDL Cholesterol Direct HDL Cholesterol Urine pH Urine WBC (Auto) Urine Creatinine Urine Total Protein Fluid Total Protein Vancomycin Trough Rheumatoid Factor Complement C4 Miscellaneous Test Crossmatch 10/21/16 10/21/16 10/22/16 05:54 23:46 05:18 WBC RBC Hgb Hct MCV MCH MCHC RDW Plt Count Lymph % (Auto) [place] % (Auto) Lymph # [place] # Baso # Seg Neutrophils % Seg Neuts % (Manual) Lymphocytes % (Manual) Monocytes % (Manual) Eosinophils % (Manual) Basophils % (Manual) Nucleated RBC % Seg Neutrophils # Seg Neutrophils # Man Lymphocytes # (Manual) Monocytes # (Manual) Eosinophils # (Manual) Basophils # (Manual) PT INR Fibrinogen dRVVT Confirm Interp Factor V Activity POC ABG pH POC ABG pCO2 POC ABG pO2 ABG pO2 ABG HCO3 ABG Base Excess ABG Hemoglobin Oxyhemoglobin Sodium Potassium Chloride Carbon Dioxide BUN Creatinine Glucose POC Glucose 119 H 108 H 109 H Lactic Acid Calcium Phosphorus Magnesium Direct Bilirubin AST ALT Alkaline Phosphatase Lactate Dehydrogenase Troponin T C-Reactive Protein Total Protein Albumin Prealbumin Triglycerides Cholesterol LDL Cholesterol Direct HDL Cholesterol Urine pH Urine WBC (Auto) Urine Creatinine Urine Total Protein Fluid Total Protein Vancomycin Trough Rheumatoid Factor Complement C4 Miscellaneous Test Crossmatch 10/22/16 10/22/16 10/22/16 06:40 06:40 06:40 WBC 14.0 H RBC 2.03 L Hgb 7.0 L Hct 20.5 L MCV 98 H MCH 34 H MCHC 35 H RDW 17.8 H Plt Count Lymph % (Auto) [place] % (Auto) 9.9 H Lymph # [place] # 1.4 H Baso # 0.2 H Seg Neutrophils % 72.0 H Seg Neuts % (Manual) Lymphocytes % (Manual) Monocytes % (Manual) Eosinophils % (Manual) Basophils % (Manual) Nucleated RBC % Seg Neutrophils # 10.0 H Seg Neutrophils # Man Lymphocytes # (Manual) Monocytes # (Manual) Eosinophils # (Manual) Basophils # (Manual) PT INR Fibrinogen dRVVT Confirm Interp Factor V Activity POC ABG pH POC ABG pCO2 POC ABG pO2 ABG pO2 ABG HCO3 ABG Base Excess ABG Hemoglobin Oxyhemoglobin Sodium 130 L D Potassium Chloride 92.4 L Carbon Dioxide 20 L BUN 50 H Creatinine 1.6 H Glucose 589 H* POC Glucose Lactic Acid Calcium 7.8 L D Phosphorus Magnesium 1.60 L Direct Bilirubin AST ALT Alkaline Phosphatase Lactate Dehydrogenase Troponin T C-Reactive Protein Total Protein Albumin Prealbumin Triglycerides Cholesterol LDL Cholesterol Direct HDL Cholesterol Urine pH Urine WBC (Auto) Urine Creatinine Urine Total Protein Fluid Total Protein Vancomycin Trough Rheumatoid Factor Complement C4 Miscellaneous Test Crossmatch 10/22/16 10/22/16 10/22/16 11:39 16:44 23:36 WBC RBC Hgb Hct MCV MCH MCHC RDW Plt Count Lymph % (Auto) [place] % (Auto) Lymph # [place] # Baso # Seg Neutrophils % Seg Neuts % (Manual) Lymphocytes % (Manual) Monocytes % (Manual) Eosinophils % (Manual) Basophils % (Manual) Nucleated RBC % Seg Neutrophils # Seg Neutrophils # Man Lymphocytes # (Manual) Monocytes # (Manual) Eosinophils # (Manual) Basophils # (Manual) PT INR Fibrinogen dRVVT Confirm Interp Factor V Activity POC ABG pH POC ABG pCO2 POC ABG pO2 ABG pO2 ABG HCO3 ABG Base Excess ABG Hemoglobin Oxyhemoglobin Sodium Potassium Chloride Carbon Dioxide BUN Creatinine Glucose POC Glucose 142 H 163 H 123 H Lactic Acid Calcium Phosphorus Magnesium Direct Bilirubin AST ALT Alkaline Phosphatase Lactate Dehydrogenase Troponin T C-Reactive Protein Total Protein Albumin Prealbumin Triglycerides Cholesterol LDL Cholesterol Direct HDL Cholesterol Urine pH Urine WBC (Auto) Urine Creatinine Urine Total Protein Fluid Total Protein Vancomycin Trough Rheumatoid Factor Complement C4 Miscellaneous Test Crossmatch 10/23/16 10/23/16 10/23/16 04:58 06:00 12:12 WBC RBC Hgb Hct MCV MCH MCHC RDW Plt Count Lymph % (Auto) [place] % (Auto) Lymph # [place] # Baso # Seg Neutrophils % Seg Neuts % (Manual) Lymphocytes % (Manual) Monocytes % (Manual) Eosinophils % (Manual) Basophils % (Manual) Nucleated RBC % Seg Neutrophils # Seg Neutrophils # Man Lymphocytes # (Manual) Monocytes # (Manual) Eosinophils # (Manual) Basophils # (Manual) PT INR Fibrinogen dRVVT Confirm Interp Factor V Activity POC ABG pH POC ABG pCO2 POC ABG pO2 ABG pO2 ABG HCO3 ABG Base Excess ABG Hemoglobin Oxyhemoglobin Sodium 133 L Potassium 3.5 L Chloride 96.1 L Carbon Dioxide 18 L BUN 76 H Creatinine 2.1 H Glucose POC Glucose 133 H 138 H Lactic Acid Calcium 8.3 L Phosphorus Magnesium Direct Bilirubin AST ALT Alkaline Phosphatase Lactate Dehydrogenase Troponin T C-Reactive Protein Total Protein Albumin Prealbumin Triglycerides Cholesterol LDL Cholesterol Direct HDL Cholesterol Urine pH Urine WBC (Auto) Urine Creatinine Urine Total Protein Fluid Total Protein Vancomycin Trough Rheumatoid Factor Complement C4 Miscellaneous Test Crossmatch 10/23/16 10/23/16 10/24/16 16:53 23:37 04:00 WBC RBC Hgb Hct MCV MCH MCHC RDW Plt Count Lymph % (Auto) [place] % (Auto) Lymph # [place] # Baso # Seg Neutrophils % Seg Neuts % (Manual) Lymphocytes % (Manual) Monocytes % (Manual) Eosinophils % (Manual) Basophils % (Manual) Nucleated RBC % Seg Neutrophils # Seg Neutrophils # Man Lymphocytes # (Manual) Monocytes # (Manual) Eosinophils # (Manual) Basophils # (Manual) PT INR Fibrinogen dRVVT Confirm Interp Factor V Activity POC ABG pH POC ABG pCO2 POC ABG pO2 ABG pO2 ABG HCO3 ABG Base Excess ABG Hemoglobin Oxyhemoglobin Sodium 131 L Potassium Chloride 94.5 L Carbon Dioxide 19 L BUN 97 H Creatinine 2.6 H Glucose 110 H POC Glucose 125 H 123 H Lactic Acid Calcium 8.3 L Phosphorus Magnesium Direct Bilirubin AST ALT Alkaline Phosphatase Lactate Dehydrogenase Troponin T C-Reactive Protein Total Protein Albumin Prealbumin Triglycerides Cholesterol LDL Cholesterol Direct HDL Cholesterol Urine pH Urine WBC (Auto) Urine Creatinine Urine Total Protein Fluid Total Protein Vancomycin Trough Rheumatoid Factor Complement C4 Miscellaneous Test Crossmatch 10/24/16 10/24/16 10/24/16 07:49 11:39 17:52 WBC RBC Hgb 6.0 L Hct 19.7 L* MCV MCH MCHC RDW Plt Count Lymph % (Auto) [place] % (Auto) Lymph # [place] # Baso # Seg Neutrophils % Seg Neuts % (Manual) Lymphocytes % (Manual) Monocytes % (Manual) Eosinophils % (Manual) Basophils % (Manual) Nucleated RBC % Seg Neutrophils # Seg Neutrophils # Man Lymphocytes # (Manual) Monocytes # (Manual) Eosinophils # (Manual) Basophils # (Manual) PT INR Fibrinogen dRVVT Confirm Interp Factor V Activity POC ABG pH POC ABG pCO2 POC ABG pO2 ABG pO2 ABG HCO3 ABG Base Excess ABG Hemoglobin Oxyhemoglobin Sodium Potassium Chloride Carbon Dioxide BUN Creatinine Glucose POC Glucose 106 H 158 H Lactic Acid Calcium Phosphorus Magnesium Direct Bilirubin AST ALT Alkaline Phosphatase Lactate Dehydrogenase Troponin T C-Reactive Protein Total Protein Albumin Prealbumin Triglycerides Cholesterol LDL Cholesterol Direct HDL Cholesterol Urine pH Urine WBC (Auto) Urine Creatinine Urine Total Protein Fluid Total Protein Vancomycin Trough Rheumatoid Factor Complement C4 Miscellaneous Test Crossmatch 10/24/16 10/24/16 10/24/16 20:00 22:27 Unknown WBC RBC Hgb 9.4 L D Hct 27.5 L D MCV MCH MCHC RDW Plt Count Lymph % (Auto) [place] % (Auto) Lymph # [place] # Baso # Seg Neutrophils % Seg Neuts % (Manual) Lymphocytes % (Manual) Monocytes % (Manual) Eosinophils % (Manual) Basophils % (Manual) Nucleated RBC % Seg Neutrophils # Seg Neutrophils # Man Lymphocytes # (Manual) Monocytes # (Manual) Eosinophils # (Manual) Basophils # (Manual) PT INR Fibrinogen dRVVT Confirm Interp Factor V Activity POC ABG pH POC ABG pCO2 POC ABG pO2 ABG pO2 ABG HCO3 ABG Base Excess ABG Hemoglobin Oxyhemoglobin Sodium Potassium Chloride Carbon Dioxide BUN Creatinine Glucose POC Glucose 125 H Lactic Acid Calcium Phosphorus Magnesium Direct Bilirubin AST ALT Alkaline Phosphatase Lactate Dehydrogenase Troponin T C-Reactive Protein Total Protein Albumin Prealbumin Triglycerides Cholesterol LDL Cholesterol Direct HDL Cholesterol Urine pH Urine WBC (Auto) Urine Creatinine Urine Total Protein Fluid Total Protein Vancomycin Trough Rheumatoid Factor Complement C4 Miscellaneous Test Crossmatch See Detail 10/25/16 10/25/16 10/25/16 04:00 04:00 04:00 WBC 14.2 H RBC 2.98 L Hgb 9.0 L Hct 26.2 L MCV MCH MCHC RDW 16.6 H Plt Count Lymph % (Auto) [place] % (Auto) 10.7 H Lymph # [place] # 1.5 H Baso # Seg Neutrophils % 73.6 H Seg Neuts % (Manual) Lymphocytes % (Manual) Monocytes % (Manual) Eosinophils % (Manual) Basophils % (Manual) Nucleated RBC % Seg Neutrophils # 10.5 H Seg Neutrophils # Man Lymphocytes # (Manual) Monocytes # (Manual) Eosinophils # (Manual) Basophils # (Manual) PT INR Fibrinogen dRVVT Confirm Interp Factor V Activity POC ABG pH POC ABG pCO2 POC ABG pO2 ABG pO2 ABG HCO3 ABG Base Excess ABG Hemoglobin Oxyhemoglobin Sodium 132 L Potassium Chloride 94.7 L Carbon Dioxide BUN 51 H Creatinine 1.6 H Glucose 130 H POC Glucose Lactic Acid Calcium 8.3 L Phosphorus 1.60 L D Magnesium Direct Bilirubin AST ALT Alkaline Phosphatase Lactate Dehydrogenase Troponin T C-Reactive Protein Total Protein Albumin Prealbumin Triglycerides Cholesterol LDL Cholesterol Direct HDL Cholesterol Urine pH Urine WBC (Auto) Urine Creatinine Urine Total Protein Fluid Total Protein Vancomycin Trough Rheumatoid Factor Complement C4 Miscellaneous Test Crossmatch 10/25/16 10/25/16 10/25/16 04:32 11:48 17:22 WBC RBC Hgb Hct MCV MCH MCHC RDW Plt Count Lymph % (Auto) [place] % (Auto) Lymph # [place] # Baso # Seg Neutrophils % Seg Neuts % (Manual) Lymphocytes % (Manual) Monocytes % (Manual) Eosinophils % (Manual) Basophils % (Manual) Nucleated RBC % Seg Neutrophils # Seg Neutrophils # Man Lymphocytes # (Manual) Monocytes # (Manual) Eosinophils # (Manual) Basophils # (Manual) PT INR Fibrinogen dRVVT Confirm Interp Factor V Activity POC ABG pH POC ABG pCO2 POC ABG pO2 ABG pO2 ABG HCO3 ABG Base Excess ABG Hemoglobin Oxyhemoglobin Sodium Potassium Chloride Carbon Dioxide BUN Creatinine Glucose POC Glucose 124 H 171 H 120 H Lactic Acid Calcium Phosphorus Magnesium Direct Bilirubin AST ALT Alkaline Phosphatase Lactate Dehydrogenase Troponin T C-Reactive Protein Total Protein Albumin Prealbumin Triglycerides Cholesterol LDL Cholesterol Direct HDL Cholesterol Urine pH Urine WBC (Auto) Urine Creatinine Urine Total Protein Fluid Total Protein Vancomycin Trough Rheumatoid Factor Complement C4 Miscellaneous Test Crossmatch 10/26/16 10/26/16 10/26/16 04:54 07:06 07:06 WBC 16.9 H RBC 3.06 L Hgb 9.1 L Hct 26.9 L MCV MCH MCHC RDW 16.9 H Plt Count Lymph % (Auto) [place] % (Auto) Lymph # [place] # Baso # Seg Neutrophils % Seg Neuts % (Manual) 71.0 H Lymphocytes % (Manual) 5.0 L Monocytes % (Manual) 12.0 H Eosinophils % (Manual) Basophils % (Manual) Nucleated RBC % Seg Neutrophils # Seg Neutrophils # Man 12.0 H Lymphocytes # (Manual) 0.8 L Monocytes # (Manual) 2.0 H Eosinophils # (Manual) Basophils # (Manual) PT INR Fibrinogen dRVVT Confirm Interp Factor V Activity POC ABG pH POC ABG pCO2 POC ABG pO2 ABG pO2 ABG HCO3 ABG Base Excess ABG Hemoglobin Oxyhemoglobin Sodium 135 L Potassium Chloride 97.1 L Carbon Dioxide BUN 73 H Creatinine 2.2 H Glucose 117 H POC Glucose 123 H Lactic Acid Calcium Phosphorus 1.70 L Magnesium Direct Bilirubin AST ALT Alkaline Phosphatase Lactate Dehydrogenase Troponin T C-Reactive Protein Total Protein Albumin Prealbumin Triglycerides Cholesterol LDL Cholesterol Direct HDL Cholesterol Urine pH Urine WBC (Auto) Urine Creatinine Urine Total Protein Fluid Total Protein Vancomycin Trough Rheumatoid Factor Complement C4 Miscellaneous Test Crossmatch 10/26/16 10/26/16 10/26/16 12:12 17:29 23:42 WBC RBC Hgb Hct MCV MCH MCHC RDW Plt Count Lymph % (Auto) [place] % (Auto) Lymph # [place] # Baso # Seg Neutrophils % Seg Neuts % (Manual) Lymphocytes % (Manual) Monocytes % (Manual) Eosinophils % (Manual) Basophils % (Manual) Nucleated RBC % Seg Neutrophils # Seg Neutrophils # Man Lymphocytes # (Manual) Monocytes # (Manual) Eosinophils # (Manual) Basophils # (Manual) PT INR Fibrinogen dRVVT Confirm Interp Factor V Activity POC ABG pH POC ABG pCO2 POC ABG pO2 ABG pO2 ABG HCO3 ABG Base Excess ABG Hemoglobin Oxyhemoglobin Sodium Potassium Chloride Carbon Dioxide BUN Creatinine Glucose POC Glucose 126 H 161 H 118 H Lactic Acid Calcium Phosphorus Magnesium Direct Bilirubin AST ALT Alkaline Phosphatase Lactate Dehydrogenase Troponin T C-Reactive Protein Total Protein Albumin Prealbumin Triglycerides Cholesterol LDL Cholesterol Direct HDL Cholesterol Urine pH Urine WBC (Auto) Urine Creatinine Urine Total Protein Fluid Total Protein Vancomycin Trough Rheumatoid Factor Complement C4 Miscellaneous Test Crossmatch 10/27/16 10/27/16 10/27/16 05:03 06:30 06:30 WBC 13.9 H RBC 3.09 L Hgb 9.2 L Hct 27.5 L MCV MCH MCHC RDW 17.0 H Plt Count Lymph % (Auto) [place] % (Auto) Lymph # [place] # Baso # Seg Neutrophils % Seg Neuts % (Manual) 78.0 H Lymphocytes % (Manual) Monocytes % (Manual) Eosinophils % (Manual) Basophils % (Manual) Nucleated RBC % 2.0 H Seg Neutrophils # Seg Neutrophils # Man 10.8 H Lymphocytes # (Manual) Monocytes # (Manual) 1.0 H Eosinophils # (Manual) Basophils # (Manual) PT INR Fibrinogen dRVVT Confirm Interp Factor V Activity POC ABG pH POC ABG pCO2 POC ABG pO2 ABG pO2 ABG HCO3 ABG Base Excess ABG Hemoglobin Oxyhemoglobin Sodium Potassium Chloride Carbon Dioxide BUN 40 H Creatinine 1.5 H Glucose 135 H POC Glucose 107 H Lactic Acid Calcium 8.3 L Phosphorus 1.30 L D Magnesium Direct Bilirubin AST ALT Alkaline Phosphatase Lactate Dehydrogenase Troponin T C-Reactive Protein Total Protein Albumin Prealbumin Triglycerides Cholesterol LDL Cholesterol Direct HDL Cholesterol Urine pH Urine WBC (Auto) Urine Creatinine Urine Total Protein Fluid Total Protein Vancomycin Trough Rheumatoid Factor Complement C4 Miscellaneous Test Crossmatch 10/27/16 10/27/16 10/27/16 13:27 18:07 23:40 WBC RBC Hgb Hct MCV MCH MCHC RDW Plt Count Lymph % (Auto) [place] % (Auto) Lymph # [place] # Baso # Seg Neutrophils % Seg Neuts % (Manual) Lymphocytes % (Manual) Monocytes % (Manual) Eosinophils % (Manual) Basophils % (Manual) Nucleated RBC % Seg Neutrophils # Seg Neutrophils # Man Lymphocytes # (Manual) Monocytes # (Manual) Eosinophils # (Manual) Basophils # (Manual) PT INR Fibrinogen dRVVT Confirm Interp Factor V Activity POC ABG pH POC ABG pCO2 POC ABG pO2 ABG pO2 ABG HCO3 ABG Base Excess ABG Hemoglobin Oxyhemoglobin Sodium Potassium Chloride Carbon Dioxide BUN Creatinine Glucose POC Glucose 117 H 121 H 118 H Lactic Acid Calcium Phosphorus Magnesium Direct Bilirubin AST ALT Alkaline Phosphatase Lactate Dehydrogenase Troponin T C-Reactive Protein Total Protein Albumin Prealbumin Triglycerides Cholesterol LDL Cholesterol Direct HDL Cholesterol Urine pH Urine WBC (Auto) Urine Creatinine Urine Total Protein Fluid Total Protein Vancomycin Trough Rheumatoid Factor Complement C4 Miscellaneous Test Crossmatch 10/28/16 10/28/16 10/28/16 05:48 06:45 06:45 WBC 14.7 H RBC 3.05 L Hgb 9.0 L Hct 26.9 L MCV MCH MCHC RDW 16.8 H Plt Count Lymph % (Auto) 8.2 L [place] % (Auto) 8.4 H Lymph # [place] # 1.2 H Baso # Seg Neutrophils % 81.9 H Seg Neuts % (Manual) Lymphocytes % (Manual) Monocytes % (Manual) Eosinophils % (Manual) Basophils % (Manual) Nucleated RBC % Seg Neutrophils # 12.1 H Seg Neutrophils # Man Lymphocytes # (Manual) Monocytes # (Manual) Eosinophils # (Manual) Basophils # (Manual) PT INR Fibrinogen dRVVT Confirm Interp Factor V Activity POC ABG pH POC ABG pCO2 POC ABG pO2 ABG pO2 ABG HCO3 ABG Base Excess ABG Hemoglobin Oxyhemoglobin Sodium Potassium Chloride Carbon Dioxide BUN 60 H Creatinine 1.9 H Glucose 120 H POC Glucose 114 H Lactic Acid Calcium Phosphorus Magnesium Direct Bilirubin AST ALT Alkaline Phosphatase Lactate Dehydrogenase Troponin T C-Reactive Protein Total Protein Albumin Prealbumin Triglycerides Cholesterol LDL Cholesterol Direct HDL Cholesterol Urine pH Urine WBC (Auto) Urine Creatinine Urine Total Protein Fluid Total Protein Vancomycin Trough Rheumatoid Factor Complement C4 Miscellaneous Test Crossmatch 10/28/16 10/28/16 10/29/16 17:08 23:50 05:10 WBC RBC Hgb Hct MCV MCH MCHC RDW Plt Count Lymph % (Auto) [place] % (Auto) Lymph # [place] # Baso # Seg Neutrophils % Seg Neuts % (Manual) Lymphocytes % (Manual) Monocytes % (Manual) Eosinophils % (Manual) Basophils % (Manual) Nucleated RBC % Seg Neutrophils # Seg Neutrophils # Man Lymphocytes # (Manual) Monocytes # (Manual) Eosinophils # (Manual) Basophils # (Manual) PT INR Fibrinogen dRVVT Confirm Interp Factor V Activity POC ABG pH POC ABG pCO2 POC ABG pO2 ABG pO2 ABG HCO3 ABG Base Excess ABG Hemoglobin Oxyhemoglobin Sodium Potassium Chloride Carbon Dioxide BUN Creatinine Glucose POC Glucose 109 H 110 H 124 H Lactic Acid Calcium Phosphorus Magnesium Direct Bilirubin AST ALT Alkaline Phosphatase Lactate Dehydrogenase Troponin T C-Reactive Protein Total Protein Albumin Prealbumin Triglycerides Cholesterol LDL Cholesterol Direct HDL Cholesterol Urine pH Urine WBC (Auto) Urine Creatinine Urine Total Protein Fluid Total Protein Vancomycin Trough Rheumatoid Factor Complement C4 Miscellaneous Test Crossmatch 10/29/16 10/29/16 10/29/16 07:45 07:45 12:19 WBC 14.7 H RBC 3.15 L Hgb 9.3 L Hct 28.9 L MCV MCH MCHC RDW 17.0 H Plt Count Lymph % (Auto) 11.9 L [place] % (Auto) 8.6 H Lymph # [place] # 1.3 H Baso # Seg Neutrophils % 78.1 H Seg Neuts % (Manual) Lymphocytes % (Manual) Monocytes % (Manual) Eosinophils % (Manual) Basophils % (Manual) Nucleated RBC % Seg Neutrophils # 11.4 H Seg Neutrophils # Man Lymphocytes # (Manual) Monocytes # (Manual) Eosinophils # (Manual) Basophils # (Manual) PT INR Fibrinogen dRVVT Confirm Interp Factor V Activity POC ABG pH POC ABG pCO2 POC ABG pO2 ABG pO2 ABG HCO3 ABG Base Excess ABG Hemoglobin Oxyhemoglobin Sodium Potassium 5.1 H Chloride Carbon Dioxide 19 L BUN 78 H Creatinine 2.2 H Glucose 116 H POC Glucose 118 H Lactic Acid Calcium Phosphorus Magnesium Direct Bilirubin AST ALT Alkaline Phosphatase Lactate Dehydrogenase Troponin T C-Reactive Protein Total Protein Albumin Prealbumin Triglycerides Cholesterol LDL Cholesterol Direct HDL Cholesterol Urine pH Urine WBC (Auto) Urine Creatinine Urine Total Protein Fluid Total Protein Vancomycin Trough Rheumatoid Factor Complement C4 Miscellaneous Test Crossmatch 10/29/16 10/30/16 10/30/16 17:49 01:52 03:28 WBC RBC Hgb Hct MCV MCH MCHC RDW Plt Count Lymph % (Auto) [place] % (Auto) Lymph # [place] # Baso # Seg Neutrophils % Seg Neuts % (Manual) Lymphocytes % (Manual) Monocytes % (Manual) Eosinophils % (Manual) Basophils % (Manual) Nucleated RBC % Seg Neutrophils # Seg Neutrophils # Man Lymphocytes # (Manual) Monocytes # (Manual) Eosinophils # (Manual) Basophils # (Manual) PT INR Fibrinogen dRVVT Confirm Interp Factor V Activity POC ABG pH POC ABG pCO2 POC ABG pO2 ABG pO2 ABG HCO3 ABG Base Excess ABG Hemoglobin Oxyhemoglobin Sodium Potassium 5.4 H Chloride 97.5 L Carbon Dioxide 19 L BUN 90 H Creatinine 2.5 H Glucose POC Glucose 120 H 129 H Lactic Acid Calcium Phosphorus 5.20 H Magnesium Direct Bilirubin AST ALT Alkaline Phosphatase Lactate Dehydrogenase Troponin T C-Reactive Protein Total Protein Albumin Prealbumin Triglycerides Cholesterol LDL Cholesterol Direct HDL Cholesterol Urine pH Urine WBC (Auto) Urine Creatinine Urine Total Protein Fluid Total Protein Vancomycin Trough Rheumatoid Factor Complement C4 Miscellaneous Test Crossmatch 10/30/16 10/30/16 10/30/16 03:28 08:19 08:19 WBC 11.6 H 15.9 H RBC 2.75 L 2.82 L Hgb 7.9 L 8.3 L Hct 24.2 L 25.2 L MCV MCH MCHC RDW 16.7 H 17.2 H Plt Count Lymph % (Auto) [place] % (Auto) 9.8 H Lymph # [place] # 1.1 H Baso # Seg Neutrophils % 74.2 H Seg Neuts % (Manual) Lymphocytes % (Manual) Monocytes % (Manual) Eosinophils % (Manual) Basophils % (Manual) Nucleated RBC % Seg Neutrophils # 8.6 H Seg Neutrophils # Man Lymphocytes # (Manual) Monocytes # (Manual) Eosinophils # (Manual) Basophils # (Manual) PT INR Fibrinogen dRVVT Confirm Interp Factor V Activity POC ABG pH POC ABG pCO2 POC ABG pO2 ABG pO2 ABG HCO3 ABG Base Excess ABG Hemoglobin Oxyhemoglobin Sodium Potassium 5.3 H Chloride 97.4 L Carbon Dioxide 19 L BUN 93 H Creatinine 2.6 H Glucose POC Glucose Lactic Acid Calcium Phosphorus Magnesium Direct Bilirubin AST ALT Alkaline Phosphatase Lactate Dehydrogenase Troponin T C-Reactive Protein Total Protein Albumin Prealbumin Triglycerides Cholesterol LDL Cholesterol Direct HDL Cholesterol Urine pH Urine WBC (Auto) Urine Creatinine Urine Total Protein Fluid Total Protein Vancomycin Trough Rheumatoid Factor Complement C4 Miscellaneous Test Crossmatch 10/30/16 10/30/16 10/31/16 17:11 23:56 00:40 WBC RBC Hgb Hct MCV MCH MCHC RDW Plt Count Lymph % (Auto) [place] % (Auto) Lymph # [place] # Baso # Seg Neutrophils % Seg Neuts % (Manual) Lymphocytes % (Manual) Monocytes % (Manual) Eosinophils % (Manual) Basophils % (Manual) Nucleated RBC % Seg Neutrophils # Seg Neutrophils # Man Lymphocytes # (Manual) Monocytes # (Manual) Eosinophils # (Manual) Basophils # (Manual) PT INR Fibrinogen dRVVT Confirm Interp Factor V Activity POC ABG pH POC ABG pCO2 POC ABG pO2 ABG pO2 ABG HCO3 ABG Base Excess ABG Hemoglobin Oxyhemoglobin Sodium Potassium Chloride Carbon Dioxide BUN Creatinine Glucose POC Glucose 106 H 117 H 120 H Lactic Acid Calcium Phosphorus Magnesium Direct Bilirubin AST ALT Alkaline Phosphatase Lactate Dehydrogenase Troponin T C-Reactive Protein Total Protein Albumin Prealbumin Triglycerides Cholesterol LDL Cholesterol Direct HDL Cholesterol Urine pH Urine WBC (Auto) Urine Creatinine Urine Total Protein Fluid Total Protein Vancomycin Trough Rheumatoid Factor Complement C4 Miscellaneous Test Crossmatch 10/31/16 10/31/16 10/31/16 05:43 07:15 07:15 WBC 12.1 H RBC 2.63 L Hgb 7.7 L Hct 23.3 L MCV MCH MCHC RDW 16.7 H Plt Count Lymph % (Auto) 11.7 L [place] % (Auto) 7.7 H Lymph # [place] # 0.9 H Baso # Seg Neutrophils % 78.0 H Seg Neuts % (Manual) Lymphocytes % (Manual) Monocytes % (Manual) Eosinophils % (Manual) Basophils % (Manual) Nucleated RBC % Seg Neutrophils # 9.4 H Seg Neutrophils # Man Lymphocytes # (Manual) Monocytes # (Manual) Eosinophils # (Manual) Basophils # (Manual) PT INR Fibrinogen dRVVT Confirm Interp Factor V Activity POC ABG pH POC ABG pCO2 POC ABG pO2 ABG pO2 ABG HCO3 ABG Base Excess ABG Hemoglobin Oxyhemoglobin Sodium Potassium Chloride 96.4 L Carbon Dioxide 21 L BUN 99 H Creatinine 2.6 H Glucose 144 H POC Glucose 125 H Lactic Acid Calcium Phosphorus 4.80 H Magnesium Direct Bilirubin AST ALT Alkaline Phosphatase Lactate Dehydrogenase Troponin T C-Reactive Protein Total Protein Albumin Prealbumin Triglycerides Cholesterol LDL Cholesterol Direct HDL Cholesterol Urine pH Urine WBC (Auto) Urine Creatinine Urine Total Protein Fluid Total Protein Vancomycin Trough Rheumatoid Factor Complement C4 Miscellaneous Test Crossmatch 10/31/16 10/31/16 11/01/16 11:46 18:34 00:20 WBC RBC Hgb Hct MCV MCH MCHC RDW Plt Count Lymph % (Auto) [place] % (Auto) Lymph # [place] # Baso # Seg Neutrophils % Seg Neuts % (Manual) Lymphocytes % (Manual) Monocytes % (Manual) Eosinophils % (Manual) Basophils % (Manual) Nucleated RBC % Seg Neutrophils # Seg Neutrophils # Man Lymphocytes # (Manual) Monocytes # (Manual) Eosinophils # (Manual) Basophils # (Manual) PT INR Fibrinogen dRVVT Confirm Interp Factor V Activity POC ABG pH POC ABG pCO2 POC ABG pO2 ABG pO2 ABG HCO3 ABG Base Excess ABG Hemoglobin Oxyhemoglobin Sodium Potassium Chloride Carbon Dioxide BUN Creatinine Glucose POC Glucose 159 H 140 H 132 H Lactic Acid Calcium Phosphorus Magnesium Direct Bilirubin AST ALT Alkaline Phosphatase Lactate Dehydrogenase Troponin T C-Reactive Protein Total Protein Albumin Prealbumin Triglycerides Cholesterol LDL Cholesterol Direct HDL Cholesterol Urine pH Urine WBC (Auto) Urine Creatinine Urine Total Protein Fluid Total Protein Vancomycin Trough Rheumatoid Factor Complement C4 Miscellaneous Test Crossmatch 11/01/16 11/01/16 11/01/16 04:55 04:55 06:11 WBC 11.2 H RBC 2.68 L Hgb 7.5 L Hct 23.7 L MCV MCH MCHC RDW 16.1 H Plt Count Lymph % (Auto) [place] % (Auto) 9.8 H Lymph # [place] # 1.1 H Baso # Seg Neutrophils % 70.8 H Seg Neuts % (Manual) Lymphocytes % (Manual) Monocytes % (Manual) Eosinophils % (Manual) Basophils % (Manual) Nucleated RBC % Seg Neutrophils # 7.9 H Seg Neutrophils # Man Lymphocytes # (Manual) Monocytes # (Manual) Eosinophils # (Manual) Basophils # (Manual) PT INR Fibrinogen dRVVT Confirm Interp Factor V Activity POC ABG pH POC ABG pCO2 POC ABG pO2 ABG pO2 ABG HCO3 ABG Base Excess ABG Hemoglobin Oxyhemoglobin Sodium Potassium 3.3 L D Chloride Carbon Dioxide BUN 61 H Creatinine 1.9 H Glucose 114 H POC Glucose 115 H Lactic Acid Calcium Phosphorus 1.80 L D Magnesium Direct Bilirubin AST ALT Alkaline Phosphatase Lactate Dehydrogenase Troponin T C-Reactive Protein Total Protein Albumin Prealbumin Triglycerides Cholesterol LDL Cholesterol Direct HDL Cholesterol Urine pH Urine WBC (Auto) Urine Creatinine Urine Total Protein Fluid Total Protein Vancomycin Trough Rheumatoid Factor Complement C4 Miscellaneous Test Crossmatch 11/01/16 11/01/16 11/01/16 12:29 18:23 23:58 WBC RBC Hgb Hct MCV MCH MCHC RDW Plt Count Lymph % (Auto) [place] % (Auto) Lymph # [place] # Baso # Seg Neutrophils % Seg Neuts % (Manual) Lymphocytes % (Manual) Monocytes % (Manual) Eosinophils % (Manual) Basophils % (Manual) Nucleated RBC % Seg Neutrophils # Seg Neutrophils # Man Lymphocytes # (Manual) Monocytes # (Manual) Eosinophils # (Manual) Basophils # (Manual) PT INR Fibrinogen dRVVT Confirm Interp Factor V Activity POC ABG pH POC ABG pCO2 POC ABG pO2 ABG pO2 ABG HCO3 ABG Base Excess ABG Hemoglobin Oxyhemoglobin Sodium Potassium Chloride Carbon Dioxide BUN Creatinine Glucose POC Glucose 142 H 143 H 128 H Lactic Acid Calcium Phosphorus Magnesium Direct Bilirubin AST ALT Alkaline Phosphatase Lactate Dehydrogenase Troponin T C-Reactive Protein Total Protein Albumin Prealbumin Triglycerides Cholesterol LDL Cholesterol Direct HDL Cholesterol Urine pH Urine WBC (Auto) Urine Creatinine Urine Total Protein Fluid Total Protein Vancomycin Trough Rheumatoid Factor Complement C4 Miscellaneous Test Crossmatch 11/02/16 11/02/16 11/02/16 04:16 05:29 11:58 WBC RBC Hgb Hct MCV MCH MCHC RDW Plt Count Lymph % (Auto) [place] % (Auto) Lymph # [place] # Baso # Seg Neutrophils % Seg Neuts % (Manual) Lymphocytes % (Manual) Monocytes % (Manual) Eosinophils % (Manual) Basophils % (Manual) Nucleated RBC % Seg Neutrophils # Seg Neutrophils # Man Lymphocytes # (Manual) Monocytes # (Manual) Eosinophils # (Manual) Basophils # (Manual) PT INR Fibrinogen dRVVT Confirm Interp Factor V Activity POC ABG pH POC ABG pCO2 POC ABG pO2 ABG pO2 ABG HCO3 ABG Base Excess ABG Hemoglobin Oxyhemoglobin Sodium Potassium 3.1 L Chloride Carbon Dioxide BUN 73 H Creatinine 2.3 H Glucose 112 H POC Glucose 135 H 149 H Lactic Acid Calcium Phosphorus Magnesium Direct Bilirubin AST ALT Alkaline Phosphatase Lactate Dehydrogenase Troponin T C-Reactive Protein Total Protein Albumin Prealbumin Triglycerides Cholesterol LDL Cholesterol Direct HDL Cholesterol Urine pH Urine WBC (Auto) Urine Creatinine Urine Total Protein Fluid Total Protein Vancomycin Trough Rheumatoid Factor Complement C4 Miscellaneous Test Crossmatch 11/02/16 11/02/16 11/03/16 17:42 22:54 06:00 WBC RBC Hgb Hct MCV MCH MCHC RDW Plt Count Lymph % (Auto) [place] % (Auto) Lymph # [place] # Baso # Seg Neutrophils % Seg Neuts % (Manual) Lymphocytes % (Manual) Monocytes % (Manual) Eosinophils % (Manual) Basophils % (Manual) Nucleated RBC % Seg Neutrophils # Seg Neutrophils # Man Lymphocytes # (Manual) Monocytes # (Manual) Eosinophils # (Manual) Basophils # (Manual) PT INR Fibrinogen dRVVT Confirm Interp Factor V Activity POC ABG pH POC ABG pCO2 POC ABG pO2 ABG pO2 ABG HCO3 ABG Base Excess ABG Hemoglobin Oxyhemoglobin Sodium Potassium Chloride 96.7 L Carbon Dioxide BUN 41 H Creatinine 1.5 H Glucose 145 H POC Glucose 182 H 115 H Lactic Acid Calcium Phosphorus 1.60 L D Magnesium 1.50 L Direct Bilirubin AST ALT Alkaline Phosphatase Lactate Dehydrogenase Troponin T C-Reactive Protein Total Protein Albumin Prealbumin Triglycerides Cholesterol LDL Cholesterol Direct HDL Cholesterol Urine pH Urine WBC (Auto) Urine Creatinine Urine Total Protein Fluid Total Protein Vancomycin Trough Rheumatoid Factor Complement C4 Miscellaneous Test Crossmatch 11/03/16 11/03/16 11/03/16 11:53 17:45 23:37 WBC RBC Hgb Hct MCV MCH MCHC RDW Plt Count Lymph % (Auto) [place] % (Auto) Lymph # [place] # Baso # Seg Neutrophils % Seg Neuts % (Manual) Lymphocytes % (Manual) Monocytes % (Manual) Eosinophils % (Manual) Basophils % (Manual) Nucleated RBC % Seg Neutrophils # Seg Neutrophils # Man Lymphocytes # (Manual) Monocytes # (Manual) Eosinophils # (Manual) Basophils # (Manual) PT INR Fibrinogen dRVVT Confirm Interp Factor V Activity POC ABG pH POC ABG pCO2 POC ABG pO2 ABG pO2 ABG HCO3 ABG Base Excess ABG Hemoglobin Oxyhemoglobin Sodium Potassium Chloride Carbon Dioxide BUN Creatinine Glucose POC Glucose 131 H 134 H 113 H Lactic Acid Calcium Phosphorus Magnesium Direct Bilirubin AST ALT Alkaline Phosphatase Lactate Dehydrogenase Troponin T C-Reactive Protein Total Protein Albumin Prealbumin Triglycerides Cholesterol LDL Cholesterol Direct HDL Cholesterol Urine pH Urine WBC (Auto) Urine Creatinine Urine Total Protein Fluid Total Protein Vancomycin Trough Rheumatoid Factor Complement C4 Miscellaneous Test Crossmatch 11/04/16 11/04/16 11/04/16 05:41 06:00 12:10 WBC RBC Hgb Hct MCV MCH MCHC RDW Plt Count Lymph % (Auto) [place] % (Auto) Lymph # [place] # Baso # Seg Neutrophils % Seg Neuts % (Manual) Lymphocytes % (Manual) Monocytes % (Manual) Eosinophils % (Manual) Basophils % (Manual) Nucleated RBC % Seg Neutrophils # Seg Neutrophils # Man Lymphocytes # (Manual) Monocytes # (Manual) Eosinophils # (Manual) Basophils # (Manual) PT INR Fibrinogen dRVVT Confirm Interp Factor V Activity POC ABG pH POC ABG pCO2 POC ABG pO2 ABG pO2 ABG HCO3 ABG Base Excess ABG Hemoglobin Oxyhemoglobin Sodium Potassium Chloride 96.7 L Carbon Dioxide BUN 52 H Creatinine 1.9 H Glucose 126 H POC Glucose 137 H 191 H Lactic Acid Calcium Phosphorus Magnesium Direct Bilirubin AST ALT Alkaline Phosphatase Lactate Dehydrogenase Troponin T C-Reactive Protein Total Protein Albumin Prealbumin Triglycerides Cholesterol LDL Cholesterol Direct HDL Cholesterol Urine pH Urine WBC (Auto) Urine Creatinine Urine Total Protein Fluid Total Protein Vancomycin Trough Rheumatoid Factor Complement C4 Miscellaneous Test Crossmatch 11/04/16 11/05/16 11/05/16 22:57 03:10 05:10 WBC RBC Hgb Hct MCV MCH MCHC RDW Plt Count Lymph % (Auto) [place] % (Auto) Lymph # [place] # Baso # Seg Neutrophils % Seg Neuts % (Manual) Lymphocytes % (Manual) Monocytes % (Manual) Eosinophils % (Manual) Basophils % (Manual) Nucleated RBC % Seg Neutrophils # Seg Neutrophils # Man Lymphocytes # (Manual) Monocytes # (Manual) Eosinophils # (Manual) Basophils # (Manual) PT INR Fibrinogen dRVVT Confirm Interp Factor V Activity POC ABG pH POC ABG pCO2 POC ABG pO2 ABG pO2 ABG HCO3 ABG Base Excess ABG Hemoglobin Oxyhemoglobin Sodium 136 L Potassium Chloride 97.2 L Carbon Dioxide BUN 32 H Creatinine 1.3 H Glucose 123 H POC Glucose 125 H 108 H Lactic Acid Calcium 7.8 L Phosphorus Magnesium Direct Bilirubin AST ALT Alkaline Phosphatase Lactate Dehydrogenase Troponin T C-Reactive Protein Total Protein Albumin Prealbumin Triglycerides Cholesterol LDL Cholesterol Direct HDL Cholesterol Urine pH Urine WBC (Auto) Urine Creatinine Urine Total Protein Fluid Total Protein Vancomycin Trough Rheumatoid Factor Complement C4 Miscellaneous Test Crossmatch 11/05/16 11/05/16 11/05/16 12:23 13:09 13:25 WBC RBC Hgb Hct MCV MCH MCHC RDW Plt Count Lymph % (Auto) [place] % (Auto) Lymph # [place] # Baso # Seg Neutrophils % Seg Neuts % (Manual) Lymphocytes % (Manual) Monocytes % (Manual) Eosinophils % (Manual) Basophils % (Manual) Nucleated RBC % Seg Neutrophils # Seg Neutrophils # Man Lymphocytes # (Manual) Monocytes # (Manual) Eosinophils # (Manual) Basophils # (Manual) PT INR Fibrinogen dRVVT Confirm Interp Factor V Activity POC ABG pH POC ABG pCO2 POC ABG pO2 ABG pO2 ABG HCO3 ABG Base Excess ABG Hemoglobin Oxyhemoglobin Sodium Potassium Chloride Carbon Dioxide BUN Creatinine Glucose POC Glucose 124 H Lactic Acid Calcium Phosphorus Magnesium Direct Bilirubin AST ALT Alkaline Phosphatase Lactate Dehydrogenase Troponin T C-Reactive Protein 11.40 H Total Protein Albumin Prealbumin Triglycerides Cholesterol LDL Cholesterol Direct HDL Cholesterol Urine pH 9.0 H Urine WBC (Auto) Urine Creatinine Urine Total Protein Fluid Total Protein Vancomycin Trough Rheumatoid Factor Complement C4 Miscellaneous Test Crossmatch 11/05/16 11/05/16 11/05/16 13:25 17:54 23:42 WBC RBC Hgb Hct MCV MCH MCHC RDW Plt Count Lymph % (Auto) [place] % (Auto) Lymph # [place] # Baso # Seg Neutrophils % Seg Neuts % (Manual) Lymphocytes % (Manual) Monocytes % (Manual) Eosinophils % (Manual) Basophils % (Manual) Nucleated RBC % Seg Neutrophils # Seg Neutrophils # Man Lymphocytes # (Manual) Monocytes # (Manual) Eosinophils # (Manual) Basophils # (Manual) PT INR Fibrinogen dRVVT Confirm Interp Factor V Activity POC ABG pH POC ABG pCO2 POC ABG pO2 ABG pO2 ABG HCO3 ABG Base Excess ABG Hemoglobin Oxyhemoglobin Sodium Potassium Chloride Carbon Dioxide BUN Creatinine Glucose POC Glucose 114 H 134 H Lactic Acid Calcium Phosphorus Magnesium Direct Bilirubin AST ALT Alkaline Phosphatase Lactate Dehydrogenase Troponin T C-Reactive Protein Total Protein Albumin Prealbumin Triglycerides Cholesterol LDL Cholesterol Direct HDL Cholesterol Urine pH Urine WBC (Auto) Urine Creatinine Urine Total Protein Fluid Total Protein Vancomycin Trough Rheumatoid Factor Complement C4 Miscellaneous Test Flexitest 1 H Crossmatch 11/06/16 11/06/16 11/06/16 04:56 06:25 06:25 WBC RBC 2.50 L Hgb 7.3 L Hct 22.5 L MCV MCH MCHC RDW 16.9 H Plt Count Lymph % (Auto) [place] % (Auto) 10.5 H Lymph # [place] # 1.1 H Baso # Seg Neutrophils % Seg Neuts % (Manual) Lymphocytes % (Manual) Monocytes % (Manual) Eosinophils % (Manual) Basophils % (Manual) Nucleated RBC % Seg Neutrophils # Seg Neutrophils # Man Lymphocytes # (Manual) Monocytes # (Manual) Eosinophils # (Manual) Basophils # (Manual) PT INR Fibrinogen dRVVT Confirm Interp Factor V Activity POC ABG pH POC ABG pCO2 POC ABG pO2 ABG pO2 ABG HCO3 ABG Base Excess ABG Hemoglobin Oxyhemoglobin Sodium Potassium 5.1 H Chloride 95.9 L Carbon Dioxide BUN 52 H Creatinine 1.8 H Glucose 117 H POC Glucose 120 H Lactic Acid Calcium Phosphorus Magnesium Direct Bilirubin AST 103 H ALT 77 H Alkaline Phosphatase 285 H Lactate Dehydrogenase Troponin T C-Reactive Protein Total Protein 6.2 L Albumin 1.8 L Prealbumin 0.180 L Triglycerides Cholesterol LDL Cholesterol Direct HDL Cholesterol Urine pH Urine WBC (Auto) Urine Creatinine Urine Total Protein Fluid Total Protein Vancomycin Trough Rheumatoid Factor Complement C4 Miscellaneous Test Crossmatch 11/06/16 11/06/16 11/06/16 11:56 17:14 23:52 WBC RBC Hgb Hct MCV MCH MCHC RDW Plt Count Lymph % (Auto) [place] % (Auto) Lymph # [place] # Baso # Seg Neutrophils % Seg Neuts % (Manual) Lymphocytes % (Manual) Monocytes % (Manual) Eosinophils % (Manual) Basophils % (Manual) Nucleated RBC % Seg Neutrophils # Seg Neutrophils # Man Lymphocytes # (Manual) Monocytes # (Manual) Eosinophils # (Manual) Basophils # (Manual) PT INR Fibrinogen dRVVT Confirm Interp Factor V Activity POC ABG pH POC ABG pCO2 POC ABG pO2 ABG pO2 ABG HCO3 ABG Base Excess ABG Hemoglobin Oxyhemoglobin Sodium Potassium Chloride Carbon Dioxide BUN Creatinine Glucose POC Glucose 141 H 125 H 130 H Lactic Acid Calcium Phosphorus Magnesium Direct Bilirubin AST ALT Alkaline Phosphatase Lactate Dehydrogenase Troponin T C-Reactive Protein Total Protein Albumin Prealbumin Triglycerides Cholesterol LDL Cholesterol Direct HDL Cholesterol Urine pH Urine WBC (Auto) Urine Creatinine Urine Total Protein Fluid Total Protein Vancomycin Trough Rheumatoid Factor Complement C4 Miscellaneous Test Crossmatch 11/07/16 11/07/16 11/07/16 06:30 06:30 09:37 WBC RBC 2.18 L Hgb 6.3 L Hct 19.7 L* MCV MCH MCHC RDW 16.8 H Plt Count Lymph % (Auto) [place] % (Auto) 10.0 H Lymph # [place] # 1.0 H Baso # Seg Neutrophils % Seg Neuts % (Manual) Lymphocytes % (Manual) Monocytes % (Manual) Eosinophils % (Manual) Basophils % (Manual) Nucleated RBC % Seg Neutrophils # Seg Neutrophils # Man Lymphocytes # (Manual) Monocytes # (Manual) Eosinophils # (Manual) Basophils # (Manual) PT INR Fibrinogen dRVVT Confirm Interp Factor V Activity POC ABG pH POC ABG pCO2 POC ABG pO2 ABG pO2 ABG HCO3 ABG Base Excess ABG Hemoglobin Oxyhemoglobin Sodium 135 L Potassium Chloride 95.6 L Carbon Dioxide BUN 70 H Creatinine 2.0 H Glucose 126 H POC Glucose Lactic Acid Calcium Phosphorus Magnesium Direct Bilirubin AST ALT Alkaline Phosphatase Lactate Dehydrogenase Troponin T C-Reactive Protein Total Protein Albumin Prealbumin Triglycerides Cholesterol LDL Cholesterol Direct HDL Cholesterol Urine pH Urine WBC (Auto) Urine Creatinine Urine Total Protein Fluid Total Protein Vancomycin Trough Rheumatoid Factor Complement C4 Miscellaneous Test Crossmatch See Detail 11/07/16 11/07/16 11/07/16 12:52 18:51 21:26 WBC RBC Hgb Hct MCV MCH MCHC RDW Plt Count Lymph % (Auto) [place] % (Auto) Lymph # [place] # Baso # Seg Neutrophils % Seg Neuts % (Manual) Lymphocytes % (Manual) Monocytes % (Manual) Eosinophils % (Manual) Basophils % (Manual) Nucleated RBC % Seg Neutrophils # Seg Neutrophils # Man Lymphocytes # (Manual) Monocytes # (Manual) Eosinophils # (Manual) Basophils # (Manual) PT INR Fibrinogen dRVVT Confirm Interp Factor V Activity POC ABG pH 7.523 H POC ABG pCO2 34.6 L POC ABG pO2 53 L ABG pO2 ABG HCO3 ABG Base Excess ABG Hemoglobin Oxyhemoglobin Sodium Potassium Chloride Carbon Dioxide BUN Creatinine Glucose POC Glucose 142 H 155 H Lactic Acid Calcium Phosphorus Magnesium Direct Bilirubin AST ALT Alkaline Phosphatase Lactate Dehydrogenase Troponin T C-Reactive Protein Total Protein Albumin Prealbumin Triglycerides Cholesterol LDL Cholesterol Direct HDL Cholesterol Urine pH Urine WBC (Auto) Urine Creatinine Urine Total Protein Fluid Total Protein Vancomycin Trough Rheumatoid Factor Complement C4 Miscellaneous Test Crossmatch 11/07/16 11/08/16 11/08/16 21:34 13:03 23:37 WBC RBC 2.63 L Hgb 7.7 L Hct 22.7 L MCV MCH MCHC RDW 17.0 H Plt Count Lymph % (Auto) [place] % (Auto) Lymph # [place] # Baso # Seg Neutrophils % Seg Neuts % (Manual) Lymphocytes % (Manual) Monocytes % (Manual) Eosinophils % (Manual) Basophils % (Manual) Nucleated RBC % Seg Neutrophils # Seg Neutrophils # Man Lymphocytes # (Manual) Monocytes # (Manual) Eosinophils # (Manual) Basophils # (Manual) PT INR Fibrinogen dRVVT Confirm Interp Factor V Activity POC ABG pH 7.478 H POC ABG pCO2 34.0 L POC ABG pO2 50 L ABG pO2 ABG HCO3 ABG Base Excess ABG Hemoglobin Oxyhemoglobin Sodium Potassium Chloride Carbon Dioxide BUN Creatinine Glucose POC Glucose 113 H Lactic Acid Calcium Phosphorus Magnesium Direct Bilirubin AST ALT Alkaline Phosphatase Lactate Dehydrogenase Troponin T C-Reactive Protein Total Protein Albumin Prealbumin Triglycerides Cholesterol LDL Cholesterol Direct HDL Cholesterol Urine pH Urine WBC (Auto) Urine Creatinine Urine Total Protein Fluid Total Protein Vancomycin Trough Rheumatoid Factor Complement C4 Miscellaneous Test Crossmatch 11/09/16 11/09/16 11/09/16 04:35 10:15 18:21 WBC RBC 2.68 L Hgb 7.8 L Hct 23.3 L MCV MCH MCHC RDW 17.0 H Plt Count Lymph % (Auto) [place] % (Auto) 12.1 H Lymph # [place] # 1.1 H Baso # Seg Neutrophils % Seg Neuts % (Manual) Lymphocytes % (Manual) Monocytes % (Manual) Eosinophils % (Manual) Basophils % (Manual) Nucleated RBC % Seg Neutrophils # Seg Neutrophils # Man Lymphocytes # (Manual) Monocytes # (Manual) Eosinophils # (Manual) Basophils # (Manual) PT INR Fibrinogen dRVVT Confirm Interp Factor V Activity POC ABG pH POC ABG pCO2 POC ABG pO2 ABG pO2 ABG HCO3 ABG Base Excess ABG Hemoglobin Oxyhemoglobin Sodium Potassium Chloride Carbon Dioxide BUN 51 H Creatinine 1.8 H Glucose POC Glucose 60 L Lactic Acid Calcium 8.3 L Phosphorus Magnesium Direct Bilirubin AST ALT Alkaline Phosphatase Lactate Dehydrogenase Troponin T C-Reactive Protein Total Protein Albumin Prealbumin Triglycerides Cholesterol LDL Cholesterol Direct HDL Cholesterol Urine pH Urine WBC (Auto) Urine Creatinine Urine Total Protein Fluid Total Protein Vancomycin Trough Rheumatoid Factor Complement C4 Miscellaneous Test Crossmatch 11/09/16 11/10/16 11/10/16 18:55 07:00 11:51 WBC RBC Hgb Hct MCV MCH MCHC RDW Plt Count Lymph % (Auto) [place] % (Auto) Lymph # [place] # Baso # Seg Neutrophils % Seg Neuts % (Manual) Lymphocytes % (Manual) Monocytes % (Manual) Eosinophils % (Manual) Basophils % (Manual) Nucleated RBC % Seg Neutrophils # Seg Neutrophils # Man Lymphocytes # (Manual) Monocytes # (Manual) Eosinophils # (Manual) Basophils # (Manual) PT INR Fibrinogen dRVVT Confirm Interp Factor V Activity POC ABG pH POC ABG pCO2 POC ABG pO2 ABG pO2 ABG HCO3 ABG Base Excess ABG Hemoglobin Oxyhemoglobin Sodium Potassium 3.0 L D Chloride 97.4 L Carbon Dioxide BUN 28 H Creatinine 1.3 H Glucose POC Glucose 68 L 120 H Lactic Acid Calcium 7.8 L Phosphorus Magnesium Direct Bilirubin AST ALT Alkaline Phosphatase Lactate Dehydrogenase Troponin T C-Reactive Protein Total Protein Albumin Prealbumin Triglycerides Cholesterol LDL Cholesterol Direct HDL Cholesterol Urine pH Urine WBC (Auto) Urine Creatinine Urine Total Protein Fluid Total Protein Vancomycin Trough Rheumatoid Factor Complement C4 Miscellaneous Test Crossmatch 11/10/16 11/11/16 11/11/16 14:20 06:59 06:59 WBC RBC 2.81 L Hgb 8.1 L Hct 24.4 L MCV MCH MCHC RDW 16.4 H Plt Count Lymph % (Auto) [place] % (Auto) 10.8 H Lymph # [place] # 1.0 H Baso # Seg Neutrophils % Seg Neuts % (Manual) Lymphocytes % (Manual) Monocytes % (Manual) Eosinophils % (Manual) Basophils % (Manual) Nucleated RBC % Seg Neutrophils # Seg Neutrophils # Man Lymphocytes # (Manual) Monocytes # (Manual) Eosinophils # (Manual) Basophils # (Manual) PT INR Fibrinogen dRVVT Confirm Interp Factor V Activity POC ABG pH POC ABG pCO2 POC ABG pO2 ABG pO2 ABG HCO3 ABG Base Excess ABG Hemoglobin Oxyhemoglobin Sodium Potassium Chloride Carbon Dioxide BUN Creatinine Glucose POC Glucose Lactic Acid Calcium Phosphorus Magnesium Direct Bilirubin AST ALT Alkaline Phosphatase Lactate Dehydrogenase 196 H Troponin T C-Reactive Protein Total Protein 6.1 L Albumin Prealbumin Triglycerides Cholesterol LDL Cholesterol Direct HDL Cholesterol Urine pH Urine WBC (Auto) Urine Creatinine Urine Total Protein Fluid Total Protein < 3.0 L Vancomycin Trough Rheumatoid Factor Complement C4 Miscellaneous Test Crossmatch 11/11/16 11/11/16 11/12/16 06:59 09:50 04:00 WBC RBC Hgb Hct MCV MCH MCHC RDW Plt Count Lymph % (Auto) [place] % (Auto) Lymph # [place] # Baso # Seg Neutrophils % Seg Neuts % (Manual) Lymphocytes % (Manual) Monocytes % (Manual) Eosinophils % (Manual) Basophils % (Manual) Nucleated RBC % Seg Neutrophils # Seg Neutrophils # Man Lymphocytes # (Manual) Monocytes # (Manual) Eosinophils # (Manual) Basophils # (Manual) PT INR 1.18 H Fibrinogen dRVVT Confirm Interp Factor V Activity POC ABG pH POC ABG pCO2 POC ABG pO2 ABG pO2 ABG HCO3 ABG Base Excess ABG Hemoglobin Oxyhemoglobin Sodium 136 L 133 L Potassium Chloride 96.1 L 94.8 L Carbon Dioxide 21 L BUN 37 H 42 H Creatinine 1.8 H 2.0 H Glucose POC Glucose Lactic Acid Calcium Phosphorus Magnesium Direct Bilirubin AST ALT Alkaline Phosphatase Lactate Dehydrogenase Troponin T C-Reactive Protein Total Protein Albumin Prealbumin Triglycerides Cholesterol LDL Cholesterol Direct HDL Cholesterol Urine pH Urine WBC (Auto) Urine Creatinine Urine Total Protein Fluid Total Protein Vancomycin Trough Rheumatoid Factor Complement C4 Miscellaneous Test Crossmatch 11/12/16 11/12/16 11/13/16 04:00 23:55 05:53 WBC RBC Hgb 8.9 L Hct 27.2 L MCV MCH MCHC RDW Plt Count Lymph % (Auto) [place] % (Auto) Lymph # [place] # Baso # Seg Neutrophils % Seg Neuts % (Manual) Lymphocytes % (Manual) Monocytes % (Manual) Eosinophils % (Manual) Basophils % (Manual) Nucleated RBC % Seg Neutrophils # Seg Neutrophils # Man Lymphocytes # (Manual) Monocytes # (Manual) Eosinophils # (Manual) Basophils # (Manual) PT INR Fibrinogen dRVVT Confirm Interp Factor V Activity POC ABG pH POC ABG pCO2 POC ABG pO2 ABG pO2 ABG HCO3 ABG Base Excess ABG Hemoglobin Oxyhemoglobin Sodium Potassium Chloride Carbon Dioxide BUN Creatinine Glucose POC Glucose 132 H 120 H Lactic Acid Calcium Phosphorus Magnesium Direct Bilirubin AST ALT Alkaline Phosphatase Lactate Dehydrogenase Troponin T C-Reactive Protein Total Protein Albumin Prealbumin Triglycerides Cholesterol LDL Cholesterol Direct HDL Cholesterol Urine pH Urine WBC (Auto) Urine Creatinine Urine Total Protein Fluid Total Protein Vancomycin Trough Rheumatoid Factor Complement C4 Miscellaneous Test Crossmatch 11/13/16 11/13/16 11/13/16 11:43 17:09 23:41 WBC RBC Hgb Hct MCV MCH MCHC RDW Plt Count Lymph % (Auto) [place] % (Auto) Lymph # [place] # Baso # Seg Neutrophils % Seg Neuts % (Manual) Lymphocytes % (Manual) Monocytes % (Manual) Eosinophils % (Manual) Basophils % (Manual) Nucleated RBC % Seg Neutrophils # Seg Neutrophils # Man Lymphocytes # (Manual) Monocytes # (Manual) Eosinophils # (Manual) Basophils # (Manual) PT INR Fibrinogen dRVVT Confirm Interp Factor V Activity POC ABG pH POC ABG pCO2 POC ABG pO2 ABG pO2 ABG HCO3 ABG Base Excess ABG Hemoglobin Oxyhemoglobin Sodium Potassium Chloride Carbon Dioxide BUN Creatinine Glucose POC Glucose 114 H 113 H 108 H Lactic Acid Calcium Phosphorus Magnesium Direct Bilirubin AST ALT Alkaline Phosphatase Lactate Dehydrogenase Troponin T C-Reactive Protein Total Protein Albumin Prealbumin Triglycerides Cholesterol LDL Cholesterol Direct HDL Cholesterol Urine pH Urine WBC (Auto) Urine Creatinine Urine Total Protein Fluid Total Protein Vancomycin Trough Rheumatoid Factor Complement C4 Miscellaneous Test Crossmatch 11/13/16 11/15/16 11/15/16 Unknown 00:37 03:30 WBC 11.2 H RBC 2.72 L Hgb 7.6 L Hct 23.4 L MCV MCH MCHC RDW 16.5 H Plt Count Lymph % (Auto) [place] % (Auto) Lymph # [place] # Baso # Seg Neutrophils % Seg Neuts % (Manual) Lymphocytes % (Manual) Monocytes % (Manual) Eosinophils % (Manual) Basophils % (Manual) Nucleated RBC % Seg Neutrophils # Seg Neutrophils # Man Lymphocytes # (Manual) Monocytes # (Manual) Eosinophils # (Manual) Basophils # (Manual) PT INR Fibrinogen dRVVT Confirm Interp Factor V Activity POC ABG pH POC ABG pCO2 POC ABG pO2 ABG pO2 ABG HCO3 ABG Base Excess ABG Hemoglobin Oxyhemoglobin Sodium 135 L Potassium Chloride 95.2 L Carbon Dioxide BUN 52 H Creatinine 2.2 H Glucose POC Glucose 108 H Lactic Acid Calcium Phosphorus Magnesium Direct Bilirubin AST ALT Alkaline Phosphatase Lactate Dehydrogenase Troponin T C-Reactive Protein Total Protein Albumin Prealbumin Triglycerides Cholesterol LDL Cholesterol Direct HDL Cholesterol Urine pH Urine WBC (Auto) Urine Creatinine Urine Total Protein Fluid Total Protein Vancomycin Trough Rheumatoid Factor Complement C4 Miscellaneous Test Crossmatch 11/15/16 11/15/16 11/15/16 03:30 05:04 11:50 WBC RBC Hgb Hct MCV MCH MCHC RDW Plt Count Lymph % (Auto) [place] % (Auto) Lymph # [place] # Baso # Seg Neutrophils % Seg Neuts % (Manual) Lymphocytes % (Manual) Monocytes % (Manual) Eosinophils % (Manual) Basophils % (Manual) Nucleated RBC % Seg Neutrophils # Seg Neutrophils # Man Lymphocytes # (Manual) Monocytes # (Manual) Eosinophils # (Manual) Basophils # (Manual) PT INR Fibrinogen dRVVT Confirm Interp Factor V Activity POC ABG pH POC ABG pCO2 POC ABG pO2 ABG pO2 ABG HCO3 ABG Base Excess ABG Hemoglobin Oxyhemoglobin Sodium Potassium 3.4 L Chloride Carbon Dioxide BUN 25 H Creatinine 1.5 H Glucose 103 H POC Glucose 121 H 144 H Lactic Acid Calcium Phosphorus Magnesium Direct Bilirubin AST ALT Alkaline Phosphatase Lactate Dehydrogenase Troponin T C-Reactive Protein Total Protein Albumin Prealbumin Triglycerides Cholesterol LDL Cholesterol Direct HDL Cholesterol Urine pH Urine WBC (Auto) Urine Creatinine Urine Total Protein Fluid Total Protein Vancomycin Trough Rheumatoid Factor Complement C4 Miscellaneous Test Crossmatch 11/15/16 11/15/16 11/16/16 21:28 23:20 11:44 WBC RBC Hgb Hct MCV MCH MCHC RDW Plt Count Lymph % (Auto) [place] % (Auto) Lymph # [place] # Baso # Seg Neutrophils % Seg Neuts % (Manual) Lymphocytes % (Manual) Monocytes % (Manual) Eosinophils % (Manual) Basophils % (Manual) Nucleated RBC % Seg Neutrophils # Seg Neutrophils # Man Lymphocytes # (Manual) Monocytes # (Manual) Eosinophils # (Manual) Basophils # (Manual) PT INR Fibrinogen dRVVT Confirm Interp Factor V Activity POC ABG pH 7.462 H POC ABG pCO2 POC ABG pO2 71 L ABG pO2 ABG HCO3 ABG Base Excess ABG Hemoglobin Oxyhemoglobin Sodium Potassium Chloride Carbon Dioxide BUN Creatinine Glucose POC Glucose 116 H 133 H Lactic Acid Calcium Phosphorus Magnesium Direct Bilirubin AST ALT Alkaline Phosphatase Lactate Dehydrogenase Troponin T C-Reactive Protein Total Protein Albumin Prealbumin Triglycerides Cholesterol LDL Cholesterol Direct HDL Cholesterol Urine pH Urine WBC (Auto) Urine Creatinine Urine Total Protein Fluid Total Protein Vancomycin Trough Rheumatoid Factor Complement C4 Miscellaneous Test Crossmatch 11/16/16 11/16/16 11/16/16 12:20 17:05 23:35 WBC 11.7 H RBC 2.73 L Hgb 7.6 L Hct 23.7 L MCV MCH MCHC RDW 16.6 H Plt Count Lymph % (Auto) [place] % (Auto) Lymph # [place] # Baso # Seg Neutrophils % Seg Neuts % (Manual) Lymphocytes % (Manual) Monocytes % (Manual) Eosinophils % (Manual) Basophils % (Manual) Nucleated RBC % Seg Neutrophils # Seg Neutrophils # Man Lymphocytes # (Manual) Monocytes # (Manual) Eosinophils # (Manual) Basophils # (Manual) PT INR Fibrinogen dRVVT Confirm Interp Factor V Activity POC ABG pH POC ABG pCO2 POC ABG pO2 ABG pO2 ABG HCO3 ABG Base Excess ABG Hemoglobin Oxyhemoglobin Sodium Potassium Chloride Carbon Dioxide BUN Creatinine Glucose POC Glucose 154 H 125 H Lactic Acid Calcium Phosphorus Magnesium Direct Bilirubin AST ALT Alkaline Phosphatase Lactate Dehydrogenase Troponin T C-Reactive Protein Total Protein Albumin Prealbumin Triglycerides Cholesterol LDL Cholesterol Direct HDL Cholesterol Urine pH Urine WBC (Auto) Urine Creatinine Urine Total Protein Fluid Total Protein Vancomycin Trough Rheumatoid Factor Complement C4 Miscellaneous Test Crossmatch 11/17/16 11/17/16 11/17/16 03:20 03:20 03:20 WBC RBC 2.55 L Hgb 7.3 L Hct 21.9 L MCV MCH MCHC RDW 16.6 H Plt Count Lymph % (Auto) [place] % (Auto) 11.5 H Lymph # [place] # 1.1 H Baso # Seg Neutrophils % Seg Neuts % (Manual) Lymphocytes % (Manual) Monocytes % (Manual) Eosinophils % (Manual) Basophils % (Manual) Nucleated RBC % Seg Neutrophils # Seg Neutrophils # Man Lymphocytes # (Manual) Monocytes # (Manual) Eosinophils # (Manual) Basophils # (Manual) PT 16.8 H INR 1.37 H Fibrinogen dRVVT Confirm Interp Factor V Activity POC ABG pH POC ABG pCO2 POC ABG pO2 ABG pO2 ABG HCO3 ABG Base Excess ABG Hemoglobin Oxyhemoglobin Sodium Potassium 3.5 L Chloride Carbon Dioxide BUN 21 H Creatinine Glucose POC Glucose Lactic Acid Calcium 7.9 L Phosphorus Magnesium Direct Bilirubin AST ALT Alkaline Phosphatase Lactate Dehydrogenase Troponin T C-Reactive Protein Total Protein Albumin Prealbumin Triglycerides Cholesterol LDL Cholesterol Direct HDL Cholesterol Urine pH Urine WBC (Auto) Urine Creatinine Urine Total Protein Fluid Total Protein Vancomycin Trough Rheumatoid Factor Complement C4 Miscellaneous Test Crossmatch 11/17/16 11/17/16 11/17/16 06:34 11:21 21:22 WBC RBC Hgb Hct MCV MCH MCHC RDW Plt Count Lymph % (Auto) [place] % (Auto) Lymph # [place] # Baso # Seg Neutrophils % Seg Neuts % (Manual) Lymphocytes % (Manual) Monocytes % (Manual) Eosinophils % (Manual) Basophils % (Manual) Nucleated RBC % Seg Neutrophils # Seg Neutrophils # Man Lymphocytes # (Manual) Monocytes # (Manual) Eosinophils # (Manual) Basophils # (Manual) PT INR Fibrinogen dRVVT Confirm Interp Factor V Activity POC ABG pH 7.467 H POC ABG pCO2 POC ABG pO2 73 L ABG pO2 ABG HCO3 ABG Base Excess ABG Hemoglobin Oxyhemoglobin Sodium Potassium Chloride Carbon Dioxide BUN Creatinine Glucose POC Glucose 121 H 119 H Lactic Acid Calcium Phosphorus Magnesium Direct Bilirubin AST ALT Alkaline Phosphatase Lactate Dehydrogenase Troponin T C-Reactive Protein Total Protein Albumin Prealbumin Triglycerides Cholesterol LDL Cholesterol Direct HDL Cholesterol Urine pH Urine WBC (Auto) Urine Creatinine Urine Total Protein Fluid Total Protein Vancomycin Trough Rheumatoid Factor Complement C4 Miscellaneous Test Crossmatch 11/18/16 11/18/16 11/19/16 12:16 17:19 00:00 WBC RBC Hgb Hct MCV MCH MCHC RDW Plt Count Lymph % (Auto) [place] % (Auto) Lymph # [place] # Baso # Seg Neutrophils % Seg Neuts % (Manual) Lymphocytes % (Manual) Monocytes % (Manual) Eosinophils % (Manual) Basophils % (Manual) Nucleated RBC % Seg Neutrophils # Seg Neutrophils # Man Lymphocytes # (Manual) Monocytes # (Manual) Eosinophils # (Manual) Basophils # (Manual) PT INR Fibrinogen dRVVT Confirm Interp Factor V Activity POC ABG pH POC ABG pCO2 POC ABG pO2 ABG pO2 ABG HCO3 ABG Base Excess ABG Hemoglobin Oxyhemoglobin Sodium Potassium Chloride Carbon Dioxide BUN Creatinine Glucose POC Glucose 124 H 162 H 139 H Lactic Acid Calcium Phosphorus Magnesium Direct Bilirubin AST ALT Alkaline Phosphatase Lactate Dehydrogenase Troponin T C-Reactive Protein Total Protein Albumin Prealbumin Triglycerides Cholesterol LDL Cholesterol Direct HDL Cholesterol Urine pH Urine WBC (Auto) Urine Creatinine Urine Total Protein Fluid Total Protein Vancomycin Trough Rheumatoid Factor Complement C4 Miscellaneous Test Crossmatch 11/19/16 11/19/16 11/20/16 05:00 12:43 00:40 WBC RBC Hgb Hct MCV MCH MCHC RDW Plt Count Lymph % (Auto) [place] % (Auto) Lymph # [place] # Baso # Seg Neutrophils % Seg Neuts % (Manual) Lymphocytes % (Manual) Monocytes % (Manual) Eosinophils % (Manual) Basophils % (Manual) Nucleated RBC % Seg Neutrophils # Seg Neutrophils # Man Lymphocytes # (Manual) Monocytes # (Manual) Eosinophils # (Manual) Basophils # (Manual) PT INR Fibrinogen dRVVT Confirm Interp Factor V Activity POC ABG pH POC ABG pCO2 POC ABG pO2 ABG pO2 ABG HCO3 ABG Base Excess ABG Hemoglobin Oxyhemoglobin Sodium Potassium Chloride Carbon Dioxide BUN Creatinine Glucose POC Glucose 110 H 125 H 136 H Lactic Acid Calcium Phosphorus Magnesium Direct Bilirubin AST ALT Alkaline Phosphatase Lactate Dehydrogenase Troponin T C-Reactive Protein Total Protein Albumin Prealbumin Triglycerides Cholesterol LDL Cholesterol Direct HDL Cholesterol Urine pH Urine WBC (Auto) Urine Creatinine Urine Total Protein Fluid Total Protein Vancomycin Trough Rheumatoid Factor Complement C4 Miscellaneous Test Crossmatch 11/20/16 11/20/16 11/20/16 05:00 05:00 05:51 WBC 13.1 H RBC 2.74 L Hgb 7.7 L Hct 23.6 L MCV MCH MCHC RDW 16.9 H Plt Count Lymph % (Auto) [place] % (Auto) 10.8 H Lymph # [place] # 1.4 H Baso # Seg Neutrophils % Seg Neuts % (Manual) Lymphocytes % (Manual) Monocytes % (Manual) Eosinophils % (Manual) Basophils % (Manual) Nucleated RBC % Seg Neutrophils # 7.9 H Seg Neutrophils # Man Lymphocytes # (Manual) Monocytes # (Manual) Eosinophils # (Manual) Basophils # (Manual) PT INR Fibrinogen dRVVT Confirm Interp Factor V Activity POC ABG pH POC ABG pCO2 POC ABG pO2 ABG pO2 ABG HCO3 ABG Base Excess ABG Hemoglobin Oxyhemoglobin Sodium Potassium Chloride Carbon Dioxide BUN 31 H Creatinine 1.8 H Glucose 129 H POC Glucose 133 H Lactic Acid Calcium Phosphorus Magnesium Direct Bilirubin AST ALT Alkaline Phosphatase Lactate Dehydrogenase Troponin T C-Reactive Protein Total Protein Albumin Prealbumin Triglycerides Cholesterol LDL Cholesterol Direct HDL Cholesterol Urine pH Urine WBC (Auto) Urine Creatinine Urine Total Protein Fluid Total Protein Vancomycin Trough Rheumatoid Factor Complement C4 Miscellaneous Test Crossmatch 11/20/16 11/20/16 11/21/16 12:40 18:10 01:20 WBC RBC Hgb Hct MCV MCH MCHC RDW Plt Count Lymph % (Auto) [place] % (Auto) Lymph # [place] # Baso # Seg Neutrophils % Seg Neuts % (Manual) Lymphocytes % (Manual) Monocytes % (Manual) Eosinophils % (Manual) Basophils % (Manual) Nucleated RBC % Seg Neutrophils # Seg Neutrophils # Man Lymphocytes # (Manual) Monocytes # (Manual) Eosinophils # (Manual) Basophils # (Manual) PT INR Fibrinogen dRVVT Confirm Interp Factor V Activity POC ABG pH POC ABG pCO2 POC ABG pO2 ABG pO2 ABG HCO3 ABG Base Excess ABG Hemoglobin Oxyhemoglobin Sodium Potassium Chloride Carbon Dioxide BUN Creatinine Glucose POC Glucose 134 H 138 H 136 H Lactic Acid Calcium Phosphorus Magnesium Direct Bilirubin AST ALT Alkaline Phosphatase Lactate Dehydrogenase Troponin T C-Reactive Protein Total Protein Albumin Prealbumin Triglycerides Cholesterol LDL Cholesterol Direct HDL Cholesterol Urine pH Urine WBC (Auto) Urine Creatinine Urine Total Protein Fluid Total Protein Vancomycin Trough Rheumatoid Factor Complement C4 Miscellaneous Test Crossmatch 11/21/16 11/21/16 11/21/16 07:04 07:45 07:45 WBC 22.0 H RBC 2.91 L Hgb 8.2 L Hct 25.4 L MCV MCH MCHC RDW 17.1 H Plt Count Lymph % (Auto) [place] % (Auto) Lymph # [place] # Baso # Seg Neutrophils % Seg Neuts % (Manual) Lymphocytes % (Manual) 8.0 L Monocytes % (Manual) Eosinophils % (Manual) Basophils % (Manual) Nucleated RBC % Seg Neutrophils # Seg Neutrophils # Man 14.7 H Lymphocytes # (Manual) Monocytes # (Manual) 1.1 H Eosinophils # (Manual) Basophils # (Manual) PT INR Fibrinogen dRVVT Confirm Interp Factor V Activity POC ABG pH POC ABG pCO2 POC ABG pO2 ABG pO2 ABG HCO3 ABG Base Excess ABG Hemoglobin Oxyhemoglobin Sodium Potassium Chloride Carbon Dioxide BUN 42 H Creatinine 2.0 H Glucose POC Glucose 108 H Lactic Acid Calcium Phosphorus Magnesium Direct Bilirubin AST ALT Alkaline Phosphatase Lactate Dehydrogenase Troponin T C-Reactive Protein Total Protein Albumin Prealbumin Triglycerides Cholesterol LDL Cholesterol Direct HDL Cholesterol Urine pH Urine WBC (Auto) Urine Creatinine Urine Total Protein Fluid Total Protein Vancomycin Trough Rheumatoid Factor Complement C4 Miscellaneous Test Crossmatch 11/21/16 11/21/16 11/21/16 08:38 10:09 11:20 WBC RBC Hgb Hct MCV MCH MCHC RDW Plt Count Lymph % (Auto) [place] % (Auto) Lymph # [place] # Baso # Seg Neutrophils % Seg Neuts % (Manual) Lymphocytes % (Manual) Monocytes % (Manual) Eosinophils % (Manual) Basophils % (Manual) Nucleated RBC % Seg Neutrophils # Seg Neutrophils # Man Lymphocytes # (Manual) Monocytes # (Manual) Eosinophils # (Manual) Basophils # (Manual) PT INR Fibrinogen dRVVT Confirm Interp Factor V Activity POC ABG pH 7.346 L POC ABG pCO2 34.4 L POC ABG pO2 314 H ABG pO2 ABG HCO3 ABG Base Excess ABG Hemoglobin Oxyhemoglobin Sodium Potassium Chloride Carbon Dioxide BUN Creatinine Glucose POC Glucose 195 H 153 H Lactic Acid Calcium Phosphorus Magnesium Direct Bilirubin AST ALT Alkaline Phosphatase Lactate Dehydrogenase Troponin T C-Reactive Protein Total Protein Albumin Prealbumin Triglycerides Cholesterol LDL Cholesterol Direct HDL Cholesterol Urine pH Urine WBC (Auto) Urine Creatinine Urine Total Protein Fluid Total Protein Vancomycin Trough Rheumatoid Factor Complement C4 Miscellaneous Test Crossmatch 11/21/16 11/22/16 11/22/16 23:37 04:48 05:00 WBC 29.7 H RBC 2.73 L Hgb 7.5 L Hct 24.2 L MCV MCH 27 L MCHC RDW 17.4 H Plt Count Lymph % (Auto) [place] % (Auto) Lymph # [place] # Baso # Seg Neutrophils % Seg Neuts % (Manual) Lymphocytes % (Manual) 7.0 L Monocytes % (Manual) Eosinophils % (Manual) Basophils % (Manual) Nucleated RBC % Seg Neutrophils # Seg Neutrophils # Man 15.4 H Lymphocytes # (Manual) Monocytes # (Manual) Eosinophils # (Manual) Basophils # (Manual) PT INR Fibrinogen dRVVT Confirm Interp Factor V Activity POC ABG pH POC ABG pCO2 24.6 L POC ABG pO2 189 H ABG pO2 ABG HCO3 ABG Base Excess ABG Hemoglobin Oxyhemoglobin Sodium Potassium Chloride Carbon Dioxide BUN Creatinine Glucose POC Glucose 65 L Lactic Acid Calcium Phosphorus Magnesium Direct Bilirubin AST ALT Alkaline Phosphatase Lactate Dehydrogenase Troponin T C-Reactive Protein Total Protein Albumin Prealbumin Triglycerides Cholesterol LDL Cholesterol Direct HDL Cholesterol Urine pH Urine WBC (Auto) Urine Creatinine Urine Total Protein Fluid Total Protein Vancomycin Trough Rheumatoid Factor Complement C4 Miscellaneous Test Crossmatch 11/22/16 11/23/16 11/23/16 05:00 03:44 04:06 WBC RBC 2.52 L Hgb 7.2 L Hct 21.5 L MCV MCH MCHC RDW 17.1 H Plt Count Lymph % (Auto) [place] % (Auto) 12.4 H Lymph # [place] # 1.4 H Baso # Seg Neutrophils % Seg Neuts % (Manual) Lymphocytes % (Manual) Monocytes % (Manual) Eosinophils % (Manual) Basophils % (Manual) Nucleated RBC % Seg Neutrophils # Seg Neutrophils # Man Lymphocytes # (Manual) Monocytes # (Manual) Eosinophils # (Manual) Basophils # (Manual) PT INR Fibrinogen dRVVT Confirm Interp Factor V Activity POC ABG pH 7.493 H POC ABG pCO2 29.5 L POC ABG pO2 49 L ABG pO2 ABG HCO3 ABG Base Excess ABG Hemoglobin Oxyhemoglobin Sodium 134 L Potassium Chloride 95.9 L Carbon Dioxide 14 L D BUN 51 H Creatinine 2.6 H Glucose POC Glucose Lactic Acid Calcium Phosphorus Magnesium Direct Bilirubin AST ALT Alkaline Phosphatase Lactate Dehydrogenase Troponin T C-Reactive Protein Total Protein Albumin Prealbumin Triglycerides Cholesterol LDL Cholesterol Direct HDL Cholesterol Urine pH Urine WBC (Auto) Urine Creatinine Urine Total Protein Fluid Total Protein Vancomycin Trough Rheumatoid Factor Complement C4 Miscellaneous Test Crossmatch 11/23/16 11/23/16 11/24/16 04:06 11:29 06:39 WBC RBC Hgb Hct MCV MCH MCHC RDW Plt Count Lymph % (Auto) [place] % (Auto) Lymph # [place] # Baso # Seg Neutrophils % Seg Neuts % (Manual) Lymphocytes % (Manual) Monocytes % (Manual) Eosinophils % (Manual) Basophils % (Manual) Nucleated RBC % Seg Neutrophils # Seg Neutrophils # Man Lymphocytes # (Manual) Monocytes # (Manual) Eosinophils # (Manual) Basophils # (Manual) PT INR Fibrinogen dRVVT Confirm Interp Factor V Activity POC ABG pH POC ABG pCO2 POC ABG pO2 ABG pO2 ABG HCO3 ABG Base Excess ABG Hemoglobin Oxyhemoglobin Sodium 136 L Potassium Chloride 95.2 L Carbon Dioxide BUN 60 H Creatinine 2.9 H Glucose POC Glucose 69 L 305 H Lactic Acid Calcium Phosphorus Magnesium 1.60 L Direct Bilirubin AST ALT Alkaline Phosphatase Lactate Dehydrogenase Troponin T C-Reactive Protein Total Protein Albumin Prealbumin Triglycerides Cholesterol LDL Cholesterol Direct HDL Cholesterol Urine pH Urine WBC (Auto) Urine Creatinine Urine Total Protein Fluid Total Protein Vancomycin Trough Rheumatoid Factor Complement C4 Miscellaneous Test Crossmatch 11/24/16 11/24/16 11/24/16 06:43 08:08 08:08 WBC 11.2 H RBC 2.47 L Hgb 6.8 L Hct 20.6 L MCV MCH MCHC RDW 17.0 H Plt Count Lymph % (Auto) [place] % (Auto) 10.3 H Lymph # [place] # 1.2 H Baso # Seg Neutrophils % Seg Neuts % (Manual) Lymphocytes % (Manual) Monocytes % (Manual) Eosinophils % (Manual) Basophils % (Manual) Nucleated RBC % Seg Neutrophils # Seg Neutrophils # Man Lymphocytes # (Manual) Monocytes # (Manual) Eosinophils # (Manual) Basophils # (Manual) PT INR Fibrinogen dRVVT Confirm Interp Factor V Activity POC ABG pH POC ABG pCO2 POC ABG pO2 ABG pO2 ABG HCO3 ABG Base Excess ABG Hemoglobin Oxyhemoglobin Sodium 135 L Potassium Chloride 96.3 L Carbon Dioxide BUN 61 H Creatinine 3.1 H Glucose POC Glucose 62 L Lactic Acid Calcium 8.2 L Phosphorus Magnesium Direct Bilirubin AST ALT Alkaline Phosphatase Lactate Dehydrogenase Troponin T C-Reactive Protein Total Protein Albumin Prealbumin Triglycerides Cholesterol LDL Cholesterol Direct HDL Cholesterol Urine pH Urine WBC (Auto) Urine Creatinine Urine Total Protein Fluid Total Protein Vancomycin Trough Rheumatoid Factor Complement C4 Miscellaneous Test Crossmatch 11/24/16 11/24/16 11/24/16 08:34 11:20 12:41 WBC RBC Hgb Hct MCV MCH MCHC RDW Plt Count Lymph % (Auto) [place] % (Auto) Lymph # [place] # Baso # Seg Neutrophils % Seg Neuts % (Manual) Lymphocytes % (Manual) Monocytes % (Manual) Eosinophils % (Manual) Basophils % (Manual) Nucleated RBC % Seg Neutrophils # Seg Neutrophils # Man Lymphocytes # (Manual) Monocytes # (Manual) Eosinophils # (Manual) Basophils # (Manual) PT INR Fibrinogen dRVVT Confirm Interp Factor V Activity POC ABG pH POC ABG pCO2 POC ABG pO2 ABG pO2 ABG HCO3 ABG Base Excess ABG Hemoglobin Oxyhemoglobin Sodium Potassium Chloride Carbon Dioxide BUN Creatinine Glucose POC Glucose 108 H Lactic Acid Calcium Phosphorus Magnesium 1.60 L Direct Bilirubin AST ALT Alkaline Phosphatase Lactate Dehydrogenase Troponin T C-Reactive Protein Total Protein Albumin Prealbumin Triglycerides Cholesterol LDL Cholesterol Direct HDL Cholesterol Urine pH Urine WBC (Auto) Urine Creatinine Urine Total Protein Fluid Total Protein Vancomycin Trough Rheumatoid Factor Complement C4 Miscellaneous Test Crossmatch See Detail 11/25/16 11/25/16 11/25/16 00:03 04:42 04:42 WBC RBC 3.03 L Hgb 8.6 L Hct 25.3 L MCV MCH MCHC RDW 16.2 H Plt Count Lymph % (Auto) [place] % (Auto) 8.1 H Lymph # [place] # Baso # Seg Neutrophils % 71.3 H Seg Neuts % (Manual) Lymphocytes % (Manual) Monocytes % (Manual) Eosinophils % (Manual) Basophils % (Manual) Nucleated RBC % Seg Neutrophils # Seg Neutrophils # Man Lymphocytes # (Manual) Monocytes # (Manual) Eosinophils # (Manual) Basophils # (Manual) PT INR Fibrinogen dRVVT Confirm Interp Factor V Activity POC ABG pH POC ABG pCO2 POC ABG pO2 ABG pO2 ABG HCO3 ABG Base Excess ABG Hemoglobin Oxyhemoglobin Sodium Potassium Chloride Carbon Dioxide BUN 61 H Creatinine 3.0 H Glucose 102 H POC Glucose 113 H Lactic Acid Calcium 8.2 L Phosphorus Magnesium Direct Bilirubin AST ALT Alkaline Phosphatase 142 H Lactate Dehydrogenase Troponin T C-Reactive Protein Total Protein 5.7 L Albumin 1.5 L Prealbumin Triglycerides Cholesterol LDL Cholesterol Direct HDL Cholesterol Urine pH Urine WBC (Auto) Urine Creatinine Urine Total Protein Fluid Total Protein Vancomycin Trough Rheumatoid Factor Complement C4 Miscellaneous Test Crossmatch 11/25/16 11/25/16 11/25/16 05:12 11:31 14:12 WBC RBC Hgb Hct MCV MCH MCHC RDW Plt Count Lymph % (Auto) [place] % (Auto) Lymph # [place] # Baso # Seg Neutrophils % Seg Neuts % (Manual) Lymphocytes % (Manual) Monocytes % (Manual) Eosinophils % (Manual) Basophils % (Manual) Nucleated RBC % Seg Neutrophils # Seg Neutrophils # Man Lymphocytes # (Manual) Monocytes # (Manual) Eosinophils # (Manual) Basophils # (Manual) PT INR Fibrinogen dRVVT Confirm Interp Factor V Activity POC ABG pH 7.487 H POC ABG pCO2 POC ABG pO2 153 H ABG pO2 ABG HCO3 ABG Base Excess ABG Hemoglobin Oxyhemoglobin Sodium Potassium Chloride Carbon Dioxide BUN Creatinine Glucose POC Glucose 131 H 140 H Lactic Acid Calcium Phosphorus Magnesium Direct Bilirubin AST ALT Alkaline Phosphatase Lactate Dehydrogenase Troponin T C-Reactive Protein Total Protein Albumin Prealbumin Triglycerides Cholesterol LDL Cholesterol Direct HDL Cholesterol Urine pH Urine WBC (Auto) Urine Creatinine Urine Total Protein Fluid Total Protein Vancomycin Trough Rheumatoid Factor Complement C4 Miscellaneous Test Crossmatch 11/25/16 11/26/16 11/26/16 17:23 00:09 05:13 WBC RBC 2.94 L Hgb 8.4 L Hct 24.6 L MCV MCH MCHC RDW 16.4 H Plt Count Lymph % (Auto) [place] % (Auto) 12.3 H Lymph # [place] # 1.1 H Baso # Seg Neutrophils % Seg Neuts % (Manual) Lymphocytes % (Manual) Monocytes % (Manual) Eosinophils % (Manual) Basophils % (Manual) Nucleated RBC % Seg Neutrophils # Seg Neutrophils # Man Lymphocytes # (Manual) Monocytes # (Manual) Eosinophils # (Manual) Basophils # (Manual) PT INR Fibrinogen dRVVT Confirm Interp Factor V Activity POC ABG pH POC ABG pCO2 POC ABG pO2 ABG pO2 ABG HCO3 ABG Base Excess ABG Hemoglobin Oxyhemoglobin Sodium Potassium Chloride Carbon Dioxide BUN Creatinine Glucose POC Glucose 146 H 112 H Lactic Acid Calcium Phosphorus Magnesium Direct Bilirubin AST ALT Alkaline Phosphatase Lactate Dehydrogenase Troponin T C-Reactive Protein Total Protein Albumin Prealbumin Triglycerides Cholesterol LDL Cholesterol Direct HDL Cholesterol Urine pH Urine WBC (Auto) Urine Creatinine Urine Total Protein Fluid Total Protein Vancomycin Trough Rheumatoid Factor Complement C4 Miscellaneous Test Crossmatch 11/26/16 11/26/16 11/26/16 05:13 05:28 11:53 WBC RBC Hgb Hct MCV MCH MCHC RDW Plt Count Lymph % (Auto) [place] % (Auto) Lymph # [place] # Baso # Seg Neutrophils % Seg Neuts % (Manual) Lymphocytes % (Manual) Monocytes % (Manual) Eosinophils % (Manual) Basophils % (Manual) Nucleated RBC % Seg Neutrophils # Seg Neutrophils # Man Lymphocytes # (Manual) Monocytes # (Manual) Eosinophils # (Manual) Basophils # (Manual) PT INR Fibrinogen dRVVT Confirm Interp Factor V Activity POC ABG pH POC ABG pCO2 POC ABG pO2 ABG pO2 ABG HCO3 ABG Base Excess ABG Hemoglobin Oxyhemoglobin Sodium Potassium Chloride 97.8 L Carbon Dioxide BUN 37 H Creatinine 2.0 H Glucose 109 H POC Glucose 117 H 111 H Lactic Acid Calcium 7.9 L Phosphorus 1.80 L D Magnesium Direct Bilirubin AST ALT Alkaline Phosphatase Lactate Dehydrogenase Troponin T C-Reactive Protein Total Protein Albumin Prealbumin Triglycerides Cholesterol LDL Cholesterol Direct HDL Cholesterol Urine pH Urine WBC (Auto) Urine Creatinine Urine Total Protein Fluid Total Protein Vancomycin Trough Rheumatoid Factor Complement C4 Miscellaneous Test Crossmatch 11/26/16 11/27/16 11/27/16 17:14 04:50 06:02 WBC RBC Hgb Hct MCV MCH MCHC RDW Plt Count Lymph % (Auto) [place] % (Auto) Lymph # [place] # Baso # Seg Neutrophils % Seg Neuts % (Manual) Lymphocytes % (Manual) Monocytes % (Manual) Eosinophils % (Manual) Basophils % (Manual) Nucleated RBC % Seg Neutrophils # Seg Neutrophils # Man Lymphocytes # (Manual) Monocytes # (Manual) Eosinophils # (Manual) Basophils # (Manual) PT INR Fibrinogen dRVVT Confirm Interp Factor V Activity POC ABG pH POC ABG pCO2 POC ABG pO2 ABG pO2 75.2 L ABG HCO3 26.4 H ABG Base Excess ABG Hemoglobin 7.6 L Oxyhemoglobin 94.8 L Sodium Potassium Chloride Carbon Dioxide BUN 49 H Creatinine 2.3 H Glucose POC Glucose 115 H Lactic Acid Calcium Phosphorus 1.50 L Magnesium Direct Bilirubin AST ALT Alkaline Phosphatase Lactate Dehydrogenase Troponin T C-Reactive Protein Total Protein Albumin Prealbumin Triglycerides Cholesterol LDL Cholesterol Direct HDL Cholesterol Urine pH Urine WBC (Auto) Urine Creatinine Urine Total Protein Fluid Total Protein Vancomycin Trough Rheumatoid Factor Complement C4 Miscellaneous Test Crossmatch 11/27/16 11/27/16 11/27/16 06:02 11:25 17:25 WBC 11.6 H RBC 2.75 L Hgb 7.6 L Hct 23.4 L MCV MCH MCHC RDW 16.5 H Plt Count Lymph % (Auto) [place] % (Auto) Lymph # [place] # Baso # Seg Neutrophils % Seg Neuts % (Manual) Lymphocytes % (Manual) Monocytes % (Manual) Eosinophils % (Manual) Basophils % (Manual) Nucleated RBC % Seg Neutrophils # Seg Neutrophils # Man Lymphocytes # (Manual) Monocytes # (Manual) Eosinophils # (Manual) Basophils # (Manual) PT INR Fibrinogen dRVVT Confirm Interp Factor V Activity POC ABG pH POC ABG pCO2 POC ABG pO2 ABG pO2 ABG HCO3 ABG Base Excess ABG Hemoglobin Oxyhemoglobin Sodium Potassium Chloride Carbon Dioxide BUN Creatinine Glucose POC Glucose 114 H 126 H Lactic Acid Calcium Phosphorus Magnesium Direct Bilirubin AST ALT Alkaline Phosphatase Lactate Dehydrogenase Troponin T C-Reactive Protein Total Protein Albumin Prealbumin Triglycerides Cholesterol LDL Cholesterol Direct HDL Cholesterol Urine pH Urine WBC (Auto) Urine Creatinine Urine Total Protein Fluid Total Protein Vancomycin Trough Rheumatoid Factor Complement C4 Miscellaneous Test Crossmatch 11/28/16 11/28/16 11/28/16 04:45 05:33 05:44 WBC RBC Hgb Hct MCV MCH MCHC RDW Plt Count Lymph % (Auto) [place] % (Auto) Lymph # [place] # Baso # Seg Neutrophils % Seg Neuts % (Manual) Lymphocytes % (Manual) Monocytes % (Manual) Eosinophils % (Manual) Basophils % (Manual) Nucleated RBC % Seg Neutrophils # Seg Neutrophils # Man Lymphocytes # (Manual) Monocytes # (Manual) Eosinophils # (Manual) Basophils # (Manual) PT INR Fibrinogen dRVVT Confirm Interp Factor V Activity POC ABG pH POC ABG pCO2 POC ABG pO2 ABG pO2 99.3 H ABG HCO3 ABG Base Excess ABG Hemoglobin 8.3 L Oxyhemoglobin Sodium Potassium Chloride Carbon Dioxide BUN 63 H Creatinine 2.4 H Glucose 102 H POC Glucose 108 H Lactic Acid Calcium Phosphorus 1.80 L Magnesium Direct Bilirubin AST ALT Alkaline Phosphatase Lactate Dehydrogenase Troponin T C-Reactive Protein Total Protein Albumin Prealbumin Triglycerides Cholesterol LDL Cholesterol Direct HDL Cholesterol Urine pH Urine WBC (Auto) Urine Creatinine Urine Total Protein Fluid Total Protein Vancomycin Trough Rheumatoid Factor Complement C4 Miscellaneous Test Crossmatch 11/28/16 11/28/16 11/28/16 12:31 16:09 23:46 WBC RBC Hgb Hct MCV MCH MCHC RDW Plt Count Lymph % (Auto) [place] % (Auto) Lymph # [place] # Baso # Seg Neutrophils % Seg Neuts % (Manual) Lymphocytes % (Manual) Monocytes % (Manual) Eosinophils % (Manual) Basophils % (Manual) Nucleated RBC % Seg Neutrophils # Seg Neutrophils # Man Lymphocytes # (Manual) Monocytes # (Manual) Eosinophils # (Manual) Basophils # (Manual) PT INR Fibrinogen dRVVT Confirm Interp Factor V Activity POC ABG pH POC ABG pCO2 POC ABG pO2 ABG pO2 ABG HCO3 ABG Base Excess ABG Hemoglobin Oxyhemoglobin Sodium Potassium Chloride Carbon Dioxide BUN Creatinine Glucose POC Glucose 126 H 111 H 119 H Lactic Acid Calcium Phosphorus Magnesium Direct Bilirubin AST ALT Alkaline Phosphatase Lactate Dehydrogenase Troponin T C-Reactive Protein Total Protein Albumin Prealbumin Triglycerides Cholesterol LDL Cholesterol Direct HDL Cholesterol Urine pH Urine WBC (Auto) Urine Creatinine Urine Total Protein Fluid Total Protein Vancomycin Trough Rheumatoid Factor Complement C4 Miscellaneous Test Crossmatch 11/29/16 11/29/16 11/29/16 03:33 04:52 05:10 WBC RBC Hgb Hct MCV MCH MCHC RDW Plt Count Lymph % (Auto) [place] % (Auto) Lymph # [place] # Baso # Seg Neutrophils % Seg Neuts % (Manual) Lymphocytes % (Manual) Monocytes % (Manual) Eosinophils % (Manual) Basophils % (Manual) Nucleated RBC % Seg Neutrophils # Seg Neutrophils # Man Lymphocytes # (Manual) Monocytes # (Manual) Eosinophils # (Manual) Basophils # (Manual) PT INR Fibrinogen dRVVT Confirm Interp Factor V Activity POC ABG pH POC ABG pCO2 POC ABG pO2 ABG pO2 ABG HCO3 ABG Base Excess ABG Hemoglobin 7.0 L Oxyhemoglobin 94.9 L Sodium Potassium Chloride Carbon Dioxide BUN 73 H Creatinine 2.7 H Glucose POC Glucose 108 H Lactic Acid Calcium Phosphorus Magnesium Direct Bilirubin AST ALT Alkaline Phosphatase Lactate Dehydrogenase Troponin T C-Reactive Protein Total Protein Albumin Prealbumin Triglycerides Cholesterol LDL Cholesterol Direct HDL Cholesterol Urine pH Urine WBC (Auto) Urine Creatinine Urine Total Protein Fluid Total Protein Vancomycin Trough Rheumatoid Factor Complement C4 Miscellaneous Test Crossmatch 11/29/16 11/29/16 11/29/16 12:16 18:05 23:46 WBC RBC Hgb Hct MCV MCH MCHC RDW Plt Count Lymph % (Auto) [place] % (Auto) Lymph # [place] # Baso # Seg Neutrophils % Seg Neuts % (Manual) Lymphocytes % (Manual) Monocytes % (Manual) Eosinophils % (Manual) Basophils % (Manual) Nucleated RBC % Seg Neutrophils # Seg Neutrophils # Man Lymphocytes # (Manual) Monocytes # (Manual) Eosinophils # (Manual) Basophils # (Manual) PT INR Fibrinogen dRVVT Confirm Interp Factor V Activity POC ABG pH POC ABG pCO2 POC ABG pO2 ABG pO2 ABG HCO3 ABG Base Excess ABG Hemoglobin Oxyhemoglobin Sodium Potassium Chloride Carbon Dioxide BUN Creatinine Glucose POC Glucose 133 H 146 H 141 H Lactic Acid Calcium Phosphorus Magnesium Direct Bilirubin AST ALT Alkaline Phosphatase Lactate Dehydrogenase Troponin T C-Reactive Protein Total Protein Albumin Prealbumin Triglycerides Cholesterol LDL Cholesterol Direct HDL Cholesterol Urine pH Urine WBC (Auto) Urine Creatinine Urine Total Protein Fluid Total Protein Vancomycin Trough Rheumatoid Factor Complement C4 Miscellaneous Test Crossmatch 11/30/16 11/30/16 11/30/16 04:17 04:17 04:32 WBC 12.0 H RBC 2.80 L Hgb 7.8 L Hct 23.6 L MCV MCH MCHC RDW 16.6 H Plt Count Lymph % (Auto) [place] % (Auto) 11.3 H Lymph # [place] # 1.4 H Baso # Seg Neutrophils % Seg Neuts % (Manual) Lymphocytes % (Manual) Monocytes % (Manual) Eosinophils % (Manual) Basophils % (Manual) Nucleated RBC % Seg Neutrophils # 8.2 H Seg Neutrophils # Man Lymphocytes # (Manual) Monocytes # (Manual) Eosinophils # (Manual) Basophils # (Manual) PT INR Fibrinogen dRVVT Confirm Interp Factor V Activity POC ABG pH POC ABG pCO2 POC ABG pO2 ABG pO2 ABG HCO3 ABG Base Excess ABG Hemoglobin Oxyhemoglobin Sodium 169 H* D Potassium 5.1 H Chloride 121.5 H Carbon Dioxide BUN 34 H Creatinine 1.3 H D Glucose 133 H POC Glucose 131 H Lactic Acid Calcium 10.3 H Phosphorus Magnesium Direct Bilirubin AST ALT Alkaline Phosphatase Lactate Dehydrogenase Troponin T C-Reactive Protein Total Protein Albumin Prealbumin Triglycerides Cholesterol LDL Cholesterol Direct HDL Cholesterol Urine pH Urine WBC (Auto) Urine Creatinine Urine Total Protein Fluid Total Protein Vancomycin Trough Rheumatoid Factor Complement C4 Miscellaneous Test Crossmatch 11/30/16 11/30/16 11/30/16 05:45 11:10 17:26 WBC RBC Hgb Hct MCV MCH MCHC RDW Plt Count Lymph % (Auto) [place] % (Auto) Lymph # [place] # Baso # Seg Neutrophils % Seg Neuts % (Manual) Lymphocytes % (Manual) Monocytes % (Manual) Eosinophils % (Manual) Basophils % (Manual) Nucleated RBC % Seg Neutrophils # Seg Neutrophils # Man Lymphocytes # (Manual) Monocytes # (Manual) Eosinophils # (Manual) Basophils # (Manual) PT INR Fibrinogen dRVVT Confirm Interp Factor V Activity POC ABG pH POC ABG pCO2 POC ABG pO2 ABG pO2 ABG HCO3 ABG Base Excess ABG Hemoglobin Oxyhemoglobin Sodium Potassium Chloride Carbon Dioxide BUN 45 H Creatinine 1.6 H Glucose 131 H POC Glucose 146 H 134 H Lactic Acid Calcium Phosphorus Magnesium Direct Bilirubin AST ALT Alkaline Phosphatase Lactate Dehydrogenase Troponin T C-Reactive Protein Total Protein Albumin Prealbumin Triglycerides Cholesterol LDL Cholesterol Direct HDL Cholesterol Urine pH Urine WBC (Auto) Urine Creatinine Urine Total Protein Fluid Total Protein Vancomycin Trough Rheumatoid Factor Complement C4 Miscellaneous Test Crossmatch 11/30/16 12/01/16 12/01/16 23:35 00:06 03:35 WBC RBC Hgb Hct MCV MCH MCHC RDW Plt Count Lymph % (Auto) [place] % (Auto) Lymph # [place] # Baso # Seg Neutrophils % Seg Neuts % (Manual) Lymphocytes % (Manual) Monocytes % (Manual) Eosinophils % (Manual) Basophils % (Manual) Nucleated RBC % Seg Neutrophils # Seg Neutrophils # Man Lymphocytes # (Manual) Monocytes # (Manual) Eosinophils # (Manual) Basophils # (Manual) PT INR Fibrinogen dRVVT Confirm Interp Factor V Activity POC ABG pH POC ABG pCO2 POC ABG pO2 ABG pO2 ABG HCO3 ABG Base Excess ABG Hemoglobin 6.9 L Oxyhemoglobin Sodium Potassium Chloride Carbon Dioxide BUN 58 H Creatinine 1.8 H Glucose 146 H POC Glucose 151 H Lactic Acid Calcium Phosphorus Magnesium Direct Bilirubin AST ALT Alkaline Phosphatase Lactate Dehydrogenase Troponin T C-Reactive Protein Total Protein Albumin Prealbumin Triglycerides Cholesterol LDL Cholesterol Direct HDL Cholesterol Urine pH Urine WBC (Auto) Urine Creatinine Urine Total Protein Fluid Total Protein Vancomycin Trough Rheumatoid Factor Complement C4 Miscellaneous Test Crossmatch 12/01/16 12/01/16 12/01/16 03:35 05:47 11:52 WBC 12.3 H RBC 2.82 L Hgb 7.8 L Hct 23.7 L MCV MCH MCHC RDW 16.7 H Plt Count Lymph % (Auto) [place] % (Auto) 9.8 H Lymph # [place] # 1.2 H Baso # Seg Neutrophils % Seg Neuts % (Manual) Lymphocytes % (Manual) Monocytes % (Manual) Eosinophils % (Manual) Basophils % (Manual) Nucleated RBC % Seg Neutrophils # 8.4 H Seg Neutrophils # Man Lymphocytes # (Manual) Monocytes # (Manual) Eosinophils # (Manual) Basophils # (Manual) PT INR Fibrinogen dRVVT Confirm Interp Factor V Activity POC ABG pH POC ABG pCO2 POC ABG pO2 ABG pO2 ABG HCO3 ABG Base Excess ABG Hemoglobin Oxyhemoglobin Sodium Potassium Chloride Carbon Dioxide BUN Creatinine Glucose POC Glucose 152 H 152 H Lactic Acid Calcium Phosphorus Magnesium Direct Bilirubin AST ALT Alkaline Phosphatase Lactate Dehydrogenase Troponin T C-Reactive Protein Total Protein Albumin Prealbumin Triglycerides Cholesterol LDL Cholesterol Direct HDL Cholesterol Urine pH Urine WBC (Auto) Urine Creatinine Urine Total Protein Fluid Total Protein Vancomycin Trough Rheumatoid Factor Complement C4 Miscellaneous Test Crossmatch 12/01/16 12/01/16 12/02/16 17:40 23:41 05:00 WBC RBC Hgb Hct MCV MCH MCHC RDW Plt Count Lymph % (Auto) [place] % (Auto) Lymph # [place] # Baso # Seg Neutrophils % Seg Neuts % (Manual) Lymphocytes % (Manual) Monocytes % (Manual) Eosinophils % (Manual) Basophils % (Manual) Nucleated RBC % Seg Neutrophils # Seg Neutrophils # Man Lymphocytes # (Manual) Monocytes # (Manual) Eosinophils # (Manual) Basophils # (Manual) PT INR Fibrinogen dRVVT Confirm Interp Factor V Activity POC ABG pH POC ABG pCO2 POC ABG pO2 ABG pO2 ABG HCO3 ABG Base Excess ABG Hemoglobin Oxyhemoglobin Sodium Potassium Chloride Carbon Dioxide BUN 45 H Creatinine Glucose 115 H POC Glucose 140 H 144 H Lactic Acid Calcium Phosphorus Magnesium Direct Bilirubin AST ALT Alkaline Phosphatase Lactate Dehydrogenase Troponin T C-Reactive Protein Total Protein Albumin Prealbumin Triglycerides Cholesterol LDL Cholesterol Direct HDL Cholesterol Urine pH Urine WBC (Auto) Urine Creatinine Urine Total Protein Fluid Total Protein Vancomycin Trough Rheumatoid Factor Complement C4 Miscellaneous Test Crossmatch 12/02/16 12/02/16 12/02/16 05:31 11:20 17:38 WBC RBC Hgb Hct MCV MCH MCHC RDW Plt Count Lymph % (Auto) [place] % (Auto) Lymph # [place] # Baso # Seg Neutrophils % Seg Neuts % (Manual) Lymphocytes % (Manual) Monocytes % (Manual) Eosinophils % (Manual) Basophils % (Manual) Nucleated RBC % Seg Neutrophils # Seg Neutrophils # Man Lymphocytes # (Manual) Monocytes # (Manual) Eosinophils # (Manual) Basophils # (Manual) PT INR Fibrinogen dRVVT Confirm Interp Factor V Activity POC ABG pH POC ABG pCO2 POC ABG pO2 ABG pO2 ABG HCO3 ABG Base Excess ABG Hemoglobin Oxyhemoglobin Sodium Potassium Chloride Carbon Dioxide BUN Creatinine Glucose POC Glucose 136 H 177 H 139 H Lactic Acid Calcium Phosphorus Magnesium Direct Bilirubin AST ALT Alkaline Phosphatase Lactate Dehydrogenase Troponin T C-Reactive Protein Total Protein Albumin Prealbumin Triglycerides Cholesterol LDL Cholesterol Direct HDL Cholesterol Urine pH Urine WBC (Auto) Urine Creatinine Urine Total Protein Fluid Total Protein Vancomycin Trough Rheumatoid Factor Complement C4 Miscellaneous Test Crossmatch 12/02/16 12/03/16 12/03/16 23:43 04:00 04:00 WBC 20.4 H RBC 2.74 L Hgb 7.4 L Hct 23.6 L MCV MCH 27 L MCHC RDW 17.1 H Plt Count Lymph % (Auto) [place] % (Auto) Lymph # [place] # Baso # Seg Neutrophils % Seg Neuts % (Manual) 31.0 L Lymphocytes % (Manual) Monocytes % (Manual) Eosinophils % (Manual) Basophils % (Manual) Nucleated RBC % Seg Neutrophils # Seg Neutrophils # Man Lymphocytes # (Manual) Monocytes # (Manual) Eosinophils # (Manual) Basophils # (Manual) PT INR Fibrinogen dRVVT Confirm Interp Factor V Activity POC ABG pH POC ABG pCO2 POC ABG pO2 ABG pO2 ABG HCO3 ABG Base Excess ABG Hemoglobin Oxyhemoglobin Sodium Potassium Chloride Carbon Dioxide BUN 61 H Creatinine 1.6 H Glucose 119 H POC Glucose 158 H Lactic Acid Calcium Phosphorus Magnesium Direct Bilirubin AST ALT Alkaline Phosphatase Lactate Dehydrogenase Troponin T C-Reactive Protein Total Protein Albumin Prealbumin Triglycerides Cholesterol LDL Cholesterol Direct HDL Cholesterol Urine pH Urine WBC (Auto) Urine Creatinine Urine Total Protein Fluid Total Protein Vancomycin Trough Rheumatoid Factor Complement C4 Miscellaneous Test Crossmatch 12/03/16 12/03/16 12/03/16 05:02 12:11 18:16 WBC RBC Hgb Hct MCV MCH MCHC RDW Plt Count Lymph % (Auto) [place] % (Auto) Lymph # [place] # Baso # Seg Neutrophils % Seg Neuts % (Manual) Lymphocytes % (Manual) Monocytes % (Manual) Eosinophils % (Manual) Basophils % (Manual) Nucleated RBC % Seg Neutrophils # Seg Neutrophils # Man Lymphocytes # (Manual) Monocytes # (Manual) Eosinophils # (Manual) Basophils # (Manual) PT INR Fibrinogen dRVVT Confirm Interp Factor V Activity POC ABG pH POC ABG pCO2 POC ABG pO2 ABG pO2 ABG HCO3 ABG Base Excess ABG Hemoglobin Oxyhemoglobin Sodium Potassium Chloride Carbon Dioxide BUN Creatinine Glucose POC Glucose 146 H 157 H 124 H Lactic Acid Calcium Phosphorus Magnesium Direct Bilirubin AST ALT Alkaline Phosphatase Lactate Dehydrogenase Troponin T C-Reactive Protein Total Protein Albumin Prealbumin Triglycerides Cholesterol LDL Cholesterol Direct HDL Cholesterol Urine pH Urine WBC (Auto) Urine Creatinine Urine Total Protein Fluid Total Protein Vancomycin Trough Rheumatoid Factor Complement C4 Miscellaneous Test Crossmatch 12/03/16 12/04/16 12/04/16 23:41 04:00 04:45 WBC RBC Hgb Hct MCV MCH MCHC RDW Plt Count Lymph % (Auto) [place] % (Auto) Lymph # [place] # Baso # Seg Neutrophils % Seg Neuts % (Manual) Lymphocytes % (Manual) Monocytes % (Manual) Eosinophils % (Manual) Basophils % (Manual) Nucleated RBC % Seg Neutrophils # Seg Neutrophils # Man Lymphocytes # (Manual) Monocytes # (Manual) Eosinophils # (Manual) Basophils # (Manual) PT INR Fibrinogen dRVVT Confirm Interp Factor V Activity POC ABG pH POC ABG pCO2 POC ABG pO2 ABG pO2 ABG HCO3 ABG Base Excess ABG Hemoglobin Oxyhemoglobin Sodium Potassium Chloride Carbon Dioxide BUN 76 H Creatinine 1.6 H Glucose POC Glucose 130 H 136 H Lactic Acid Calcium Phosphorus Magnesium Direct Bilirubin AST ALT Alkaline Phosphatase 155 H Lactate Dehydrogenase Troponin T C-Reactive Protein Total Protein 5.5 L Albumin 1.5 L Prealbumin Triglycerides Cholesterol LDL Cholesterol Direct HDL Cholesterol Urine pH Urine WBC (Auto) Urine Creatinine Urine Total Protein Fluid Total Protein Vancomycin Trough Rheumatoid Factor Complement C4 Miscellaneous Test Crossmatch 12/04/16 12/04/16 12/05/16 12:08 17:23 00:10 WBC RBC Hgb Hct MCV MCH MCHC RDW Plt Count Lymph % (Auto) [place] % (Auto) Lymph # [place] # Baso # Seg Neutrophils % Seg Neuts % (Manual) Lymphocytes % (Manual) Monocytes % (Manual) Eosinophils % (Manual) Basophils % (Manual) Nucleated RBC % Seg Neutrophils # Seg Neutrophils # Man Lymphocytes # (Manual) Monocytes # (Manual) Eosinophils # (Manual) Basophils # (Manual) PT INR Fibrinogen dRVVT Confirm Interp Factor V Activity POC ABG pH POC ABG pCO2 POC ABG pO2 ABG pO2 ABG HCO3 ABG Base Excess ABG Hemoglobin Oxyhemoglobin Sodium Potassium Chloride Carbon Dioxide BUN Creatinine Glucose POC Glucose 114 H 129 H 124 H Lactic Acid Calcium Phosphorus Magnesium Direct Bilirubin AST ALT Alkaline Phosphatase Lactate Dehydrogenase Troponin T C-Reactive Protein Total Protein Albumin Prealbumin Triglycerides Cholesterol LDL Cholesterol Direct HDL Cholesterol Urine pH Urine WBC (Auto) Urine Creatinine Urine Total Protein Fluid Total Protein Vancomycin Trough Rheumatoid Factor Complement C4 Miscellaneous Test Crossmatch 12/05/16 12/05/16 12/05/16 05:00 05:00 05:18 WBC RBC Hgb Hct MCV MCH MCHC RDW Plt Count Lymph % (Auto) [place] % (Auto) Lymph # [place] # Baso # Seg Neutrophils % Seg Neuts % (Manual) Lymphocytes % (Manual) Monocytes % (Manual) Eosinophils % (Manual) Basophils % (Manual) Nucleated RBC % Seg Neutrophils # Seg Neutrophils # Man Lymphocytes # (Manual) Monocytes # (Manual) Eosinophils # (Manual) Basophils # (Manual) PT INR Fibrinogen dRVVT Confirm Interp Factor V Activity POC ABG pH POC ABG pCO2 POC ABG pO2 ABG pO2 ABG HCO3 ABG Base Excess ABG Hemoglobin Oxyhemoglobin Sodium Potassium Chloride Carbon Dioxide 21 L BUN 85 H Creatinine 1.9 H Glucose 131 H POC Glucose 154 H Lactic Acid Calcium Phosphorus Magnesium Direct Bilirubin AST ALT Alkaline Phosphatase Lactate Dehydrogenase Troponin T C-Reactive Protein 19.30 H Total Protein Albumin Prealbumin Triglycerides Cholesterol LDL Cholesterol Direct HDL Cholesterol Urine pH Urine WBC (Auto) Urine Creatinine Urine Total Protein Fluid Total Protein Vancomycin Trough Rheumatoid Factor Complement C4 Miscellaneous Test Crossmatch 12/05/16 12/05/16 12/05/16 11:43 17:46 23:25 WBC RBC Hgb Hct MCV MCH MCHC RDW Plt Count Lymph % (Auto) [place] % (Auto) Lymph # [place] # Baso # Seg Neutrophils % Seg Neuts % (Manual) Lymphocytes % (Manual) Monocytes % (Manual) Eosinophils % (Manual) Basophils % (Manual) Nucleated RBC % Seg Neutrophils # Seg Neutrophils # Man Lymphocytes # (Manual) Monocytes # (Manual) Eosinophils # (Manual) Basophils # (Manual) PT INR Fibrinogen dRVVT Confirm Interp Factor V Activity POC ABG pH POC ABG pCO2 POC ABG pO2 ABG pO2 ABG HCO3 ABG Base Excess ABG Hemoglobin Oxyhemoglobin Sodium Potassium Chloride Carbon Dioxide BUN Creatinine Glucose POC Glucose 117 H 113 H 111 H Lactic Acid Calcium Phosphorus Magnesium Direct Bilirubin AST ALT Alkaline Phosphatase Lactate Dehydrogenase Troponin T C-Reactive Protein Total Protein Albumin Prealbumin Triglycerides Cholesterol LDL Cholesterol Direct HDL Cholesterol Urine pH Urine WBC (Auto) Urine Creatinine Urine Total Protein Fluid Total Protein Vancomycin Trough Rheumatoid Factor Complement C4 Miscellaneous Test Crossmatch 12/05/16 12/06/16 12/06/16 Unknown 04:58 06:00 WBC RBC Hgb Hct MCV MCH MCHC RDW Plt Count Lymph % (Auto) [place] % (Auto) Lymph # [place] # Baso # Seg Neutrophils % Seg Neuts % (Manual) Lymphocytes % (Manual) Monocytes % (Manual) Eosinophils % (Manual) Basophils % (Manual) Nucleated RBC % Seg Neutrophils # Seg Neutrophils # Man Lymphocytes # (Manual) Monocytes # (Manual) Eosinophils # (Manual) Basophils # (Manual) PT INR Fibrinogen dRVVT Confirm Interp Factor V Activity POC ABG pH POC ABG pCO2 POC ABG pO2 ABG pO2 75.2 L ABG HCO3 ABG Base Excess -3.4 L ABG Hemoglobin 7.4 L Oxyhemoglobin 94.5 L Sodium Potassium Chloride Carbon Dioxide 20 L BUN 99 H Creatinine 2.1 H Glucose 126 H POC Glucose 145 H Lactic Acid Calcium Phosphorus 4.80 H Magnesium Direct Bilirubin AST ALT Alkaline Phosphatase Lactate Dehydrogenase Troponin T C-Reactive Protein Total Protein Albumin Prealbumin Triglycerides Cholesterol LDL Cholesterol Direct HDL Cholesterol Urine pH Urine WBC (Auto) Urine Creatinine Urine Total Protein Fluid Total Protein Vancomycin Trough Rheumatoid Factor Complement C4 Miscellaneous Test Crossmatch 12/06/16 12/06/16 12/06/16 06:46 11:54 17:55 WBC RBC Hgb 8.3 L Hct 26.4 L MCV MCH MCHC RDW Plt Count Lymph % (Auto) [place] % (Auto) Lymph # [place] # Baso # Seg Neutrophils % Seg Neuts % (Manual) Lymphocytes % (Manual) Monocytes % (Manual) Eosinophils % (Manual) Basophils % (Manual) Nucleated RBC % Seg Neutrophils # Seg Neutrophils # Man Lymphocytes # (Manual) Monocytes # (Manual) Eosinophils # (Manual) Basophils # (Manual) PT INR Fibrinogen dRVVT Confirm Interp Factor V Activity POC ABG pH POC ABG pCO2 POC ABG pO2 ABG pO2 ABG HCO3 ABG Base Excess ABG Hemoglobin Oxyhemoglobin Sodium Potassium Chloride Carbon Dioxide BUN Creatinine Glucose POC Glucose 126 H 157 H Lactic Acid Calcium Phosphorus Magnesium Direct Bilirubin AST ALT Alkaline Phosphatase Lactate Dehydrogenase Troponin T C-Reactive Protein Total Protein Albumin Prealbumin Triglycerides Cholesterol LDL Cholesterol Direct HDL Cholesterol Urine pH Urine WBC (Auto) Urine Creatinine Urine Total Protein Fluid Total Protein Vancomycin Trough Rheumatoid Factor Complement C4 Miscellaneous Test Crossmatch 12/06/16 12/07/16 12/07/16 23:59 05:34 06:30 WBC RBC Hgb Hct MCV MCH MCHC RDW Plt Count Lymph % (Auto) [place] % (Auto) Lymph # [place] # Baso # Seg Neutrophils % Seg Neuts % (Manual) Lymphocytes % (Manual) Monocytes % (Manual) Eosinophils % (Manual) Basophils % (Manual) Nucleated RBC % Seg Neutrophils # Seg Neutrophils # Man Lymphocytes # (Manual) Monocytes # (Manual) Eosinophils # (Manual) Basophils # (Manual) PT INR Fibrinogen dRVVT Confirm Interp Factor V Activity POC ABG pH POC ABG pCO2 POC ABG pO2 ABG pO2 ABG HCO3 ABG Base Excess ABG Hemoglobin Oxyhemoglobin Sodium Potassium Chloride Carbon Dioxide BUN 67 H Creatinine 1.4 H Glucose 126 H POC Glucose 129 H 129 H Lactic Acid Calcium Phosphorus Magnesium Direct Bilirubin AST ALT Alkaline Phosphatase Lactate Dehydrogenase Troponin T C-Reactive Protein Total Protein Albumin Prealbumin Triglycerides Cholesterol LDL Cholesterol Direct HDL Cholesterol Urine pH Urine WBC (Auto) Urine Creatinine Urine Total Protein Fluid Total Protein Vancomycin Trough Rheumatoid Factor Complement C4 Miscellaneous Test Crossmatch 12/07/16 12/07/16 12/07/16 06:30 08:00 09:45 WBC 18.8 H RBC 2.52 L Hgb 6.9 L 6.8 L Hct 21.2 L 21.1 L MCV MCH 27 L MCHC RDW 18.0 H Plt Count Lymph % (Auto) [place] % (Auto) 9.9 H Lymph # [place] # 1.9 H Baso # Seg Neutrophils % 71.8 H Seg Neuts % (Manual) Lymphocytes % (Manual) Monocytes % (Manual) Eosinophils % (Manual) Basophils % (Manual) Nucleated RBC % Seg Neutrophils # 13.5 H Seg Neutrophils # Man Lymphocytes # (Manual) Monocytes # (Manual) Eosinophils # (Manual) Basophils # (Manual) PT INR Fibrinogen dRVVT Confirm Interp Factor V Activity POC ABG pH POC ABG pCO2 POC ABG pO2 ABG pO2 ABG HCO3 ABG Base Excess ABG Hemoglobin Oxyhemoglobin Sodium Potassium Chloride Carbon Dioxide BUN Creatinine Glucose POC Glucose Lactic Acid Calcium Phosphorus Magnesium Direct Bilirubin AST ALT Alkaline Phosphatase Lactate Dehydrogenase Troponin T C-Reactive Protein Total Protein Albumin Prealbumin Triglycerides Cholesterol LDL Cholesterol Direct HDL Cholesterol Urine pH Urine WBC (Auto) Urine Creatinine Urine Total Protein Fluid Total Protein Vancomycin Trough Rheumatoid Factor Complement C4 Miscellaneous Test Crossmatch See Detail 12/07/16 12/07/16 12/07/16 11:44 18:19 23:59 WBC RBC Hgb Hct MCV MCH MCHC RDW Plt Count Lymph % (Auto) [place] % (Auto) Lymph # [place] # Baso # Seg Neutrophils % Seg Neuts % (Manual) Lymphocytes % (Manual) Monocytes % (Manual) Eosinophils % (Manual) Basophils % (Manual) Nucleated RBC % Seg Neutrophils # Seg Neutrophils # Man Lymphocytes # (Manual) Monocytes # (Manual) Eosinophils # (Manual) Basophils # (Manual) PT INR Fibrinogen dRVVT Confirm Interp Factor V Activity POC ABG pH POC ABG pCO2 POC ABG pO2 ABG pO2 ABG HCO3 ABG Base Excess ABG Hemoglobin Oxyhemoglobin Sodium Potassium Chloride Carbon Dioxide BUN Creatinine Glucose POC Glucose 137 H 138 H 133 H Lactic Acid Calcium Phosphorus Magnesium Direct Bilirubin AST ALT Alkaline Phosphatase Lactate Dehydrogenase Troponin T C-Reactive Protein Total Protein Albumin Prealbumin Triglycerides Cholesterol LDL Cholesterol Direct HDL Cholesterol Urine pH Urine WBC (Auto) Urine Creatinine Urine Total Protein Fluid Total Protein Vancomycin Trough Rheumatoid Factor Complement C4 Miscellaneous Test Crossmatch 12/08/16 12/08/16 12/08/16 05:25 05:30 05:30 WBC 23.8 H RBC 2.88 L Hgb 8.1 L Hct 24.3 L MCV MCH MCHC RDW 16.7 H Plt Count Lymph % (Auto) [place] % (Auto) Lymph # [place] # Baso # Seg Neutrophils % Seg Neuts % (Manual) 76.0 H Lymphocytes % (Manual) 9.0 L Monocytes % (Manual) 9.0 H Eosinophils % (Manual) Basophils % (Manual) Nucleated RBC % Seg Neutrophils # Seg Neutrophils # Man 18.1 H Lymphocytes # (Manual) Monocytes # (Manual) 2.1 H Eosinophils # (Manual) Basophils # (Manual) PT INR Fibrinogen dRVVT Confirm Interp Factor V Activity POC ABG pH POC ABG pCO2 POC ABG pO2 ABG pO2 ABG HCO3 ABG Base Excess ABG Hemoglobin Oxyhemoglobin Sodium Potassium Chloride Carbon Dioxide 21 L BUN 76 H Creatinine 1.6 H Glucose 133 H POC Glucose 177 H Lactic Acid Calcium Phosphorus Magnesium Direct Bilirubin AST ALT Alkaline Phosphatase Lactate Dehydrogenase Troponin T C-Reactive Protein Total Protein Albumin Prealbumin Triglycerides Cholesterol LDL Cholesterol Direct HDL Cholesterol Urine pH Urine WBC (Auto) Urine Creatinine Urine Total Protein Fluid Total Protein Vancomycin Trough Rheumatoid Factor Complement C4 Miscellaneous Test Crossmatch 12/08/16 12/08/16 12/09/16 11:45 18:00 00:00 WBC RBC Hgb Hct MCV MCH MCHC RDW Plt Count Lymph % (Auto) [place] % (Auto) Lymph # [place] # Baso # Seg Neutrophils % Seg Neuts % (Manual) Lymphocytes % (Manual) Monocytes % (Manual) Eosinophils % (Manual) Basophils % (Manual) Nucleated RBC % Seg Neutrophils # Seg Neutrophils # Man Lymphocytes # (Manual) Monocytes # (Manual) Eosinophils # (Manual) Basophils # (Manual) PT INR Fibrinogen dRVVT Confirm Interp Factor V Activity POC ABG pH POC ABG pCO2 POC ABG pO2 ABG pO2 ABG HCO3 ABG Base Excess ABG Hemoglobin Oxyhemoglobin Sodium Potassium Chloride Carbon Dioxide BUN Creatinine Glucose POC Glucose 163 H 123 H 137 H Lactic Acid Calcium Phosphorus Magnesium Direct Bilirubin AST ALT Alkaline Phosphatase Lactate Dehydrogenase Troponin T C-Reactive Protein Total Protein Albumin Prealbumin Triglycerides Cholesterol LDL Cholesterol Direct HDL Cholesterol Urine pH Urine WBC (Auto) Urine Creatinine Urine Total Protein Fluid Total Protein Vancomycin Trough Rheumatoid Factor Complement C4 Miscellaneous Test Crossmatch 12/09/16 12/09/16 12/09/16 05:34 06:00 06:00 WBC 15.5 H RBC 2.87 L Hgb 8.0 L Hct 24.2 L MCV MCH MCHC RDW 17.2 H Plt Count Lymph % (Auto) [place] % (Auto) 11.6 H Lymph # [place] # 1.8 H Baso # Seg Neutrophils % 70.8 H Seg Neuts % (Manual) Lymphocytes % (Manual) Monocytes % (Manual) Eosinophils % (Manual) Basophils % (Manual) Nucleated RBC % Seg Neutrophils # 11.0 H Seg Neutrophils # Man Lymphocytes # (Manual) Monocytes # (Manual) Eosinophils # (Manual) Basophils # (Manual) PT INR Fibrinogen dRVVT Confirm Interp Factor V Activity POC ABG pH POC ABG pCO2 POC ABG pO2 ABG pO2 ABG HCO3 ABG Base Excess ABG Hemoglobin Oxyhemoglobin Sodium Potassium Chloride Carbon Dioxide BUN 51 H Creatinine Glucose 117 H POC Glucose 136 H Lactic Acid Calcium Phosphorus Magnesium Direct Bilirubin AST ALT Alkaline Phosphatase Lactate Dehydrogenase Troponin T C-Reactive Protein Total Protein Albumin Prealbumin Triglycerides Cholesterol LDL Cholesterol Direct HDL Cholesterol Urine pH Urine WBC (Auto) Urine Creatinine Urine Total Protein Fluid Total Protein Vancomycin Trough Rheumatoid Factor Complement C4 Miscellaneous Test Crossmatch 12/09/16 12/09/16 12/09/16 12:29 17:52 23:10 WBC RBC Hgb Hct MCV MCH MCHC RDW Plt Count Lymph % (Auto) [place] % (Auto) Lymph # [place] # Baso # Seg Neutrophils % Seg Neuts % (Manual) Lymphocytes % (Manual) Monocytes % (Manual) Eosinophils % (Manual) Basophils % (Manual) Nucleated RBC % Seg Neutrophils # Seg Neutrophils # Man Lymphocytes # (Manual) Monocytes # (Manual) Eosinophils # (Manual) Basophils # (Manual) PT INR Fibrinogen dRVVT Confirm Interp Factor V Activity POC ABG pH POC ABG pCO2 POC ABG pO2 ABG pO2 ABG HCO3 ABG Base Excess ABG Hemoglobin Oxyhemoglobin Sodium Potassium Chloride Carbon Dioxide BUN Creatinine Glucose POC Glucose 139 H 140 H 129 H Lactic Acid Calcium Phosphorus Magnesium Direct Bilirubin AST ALT Alkaline Phosphatase Lactate Dehydrogenase Troponin T C-Reactive Protein Total Protein Albumin Prealbumin Triglycerides Cholesterol LDL Cholesterol Direct HDL Cholesterol Urine pH Urine WBC (Auto) Urine Creatinine Urine Total Protein Fluid Total Protein Vancomycin Trough Rheumatoid Factor Complement C4 Miscellaneous Test Crossmatch 12/10/16 12/10/16 12/10/16 05:00 05:00 06:54 WBC 15.7 H RBC 2.87 L Hgb 8.2 L Hct 24.4 L MCV MCH MCHC RDW 17.2 H Plt Count Lymph % (Auto) [place] % (Auto) 8.3 H Lymph # [place] # 1.3 H Baso # Seg Neutrophils % 72.8 H Seg Neuts % (Manual) Lymphocytes % (Manual) Monocytes % (Manual) Eosinophils % (Manual) Basophils % (Manual) Nucleated RBC % Seg Neutrophils # 11.4 H Seg Neutrophils # Man Lymphocytes # (Manual) Monocytes # (Manual) Eosinophils # (Manual) Basophils # (Manual) PT INR Fibrinogen dRVVT Confirm Interp Factor V Activity POC ABG pH POC ABG pCO2 POC ABG pO2 ABG pO2 ABG HCO3 ABG Base Excess ABG Hemoglobin Oxyhemoglobin Sodium Potassium Chloride Carbon Dioxide BUN 64 H Creatinine 1.4 H Glucose 134 H POC Glucose 154 H Lactic Acid Calcium Phosphorus Magnesium Direct Bilirubin AST ALT Alkaline Phosphatase Lactate Dehydrogenase Troponin T C-Reactive Protein Total Protein Albumin Prealbumin Triglycerides Cholesterol LDL Cholesterol Direct HDL Cholesterol Urine pH Urine WBC (Auto) Urine Creatinine Urine Total Protein Fluid Total Protein Vancomycin Trough Rheumatoid Factor Complement C4 Miscellaneous Test Crossmatch 12/10/16 12/10/16 12/10/16 11:58 17:29 23:52 WBC RBC Hgb Hct MCV MCH MCHC RDW Plt Count Lymph % (Auto) [place] % (Auto) Lymph # [place] # Baso # Seg Neutrophils % Seg Neuts % (Manual) Lymphocytes % (Manual) Monocytes % (Manual) Eosinophils % (Manual) Basophils % (Manual) Nucleated RBC % Seg Neutrophils # Seg Neutrophils # Man Lymphocytes # (Manual) Monocytes # (Manual) Eosinophils # (Manual) Basophils # (Manual) PT INR Fibrinogen dRVVT Confirm Interp Factor V Activity POC ABG pH POC ABG pCO2 POC ABG pO2 ABG pO2 ABG HCO3 ABG Base Excess ABG Hemoglobin Oxyhemoglobin Sodium Potassium Chloride Carbon Dioxide BUN Creatinine Glucose POC Glucose 144 H 163 H 125 H Lactic Acid Calcium Phosphorus Magnesium Direct Bilirubin AST ALT Alkaline Phosphatase Lactate Dehydrogenase Troponin T C-Reactive Protein Total Protein Albumin Prealbumin Triglycerides Cholesterol LDL Cholesterol Direct HDL Cholesterol Urine pH Urine WBC (Auto) Urine Creatinine Urine Total Protein Fluid Total Protein Vancomycin Trough Rheumatoid Factor Complement C4 Miscellaneous Test Crossmatch 12/11/16 12/11/16 12/11/16 05:38 06:30 06:30 WBC 14.4 H RBC 2.76 L Hgb 7.7 L Hct 23.4 L MCV MCH MCHC RDW 17.2 H Plt Count Lymph % (Auto) [place] % (Auto) 8.8 H Lymph # [place] # 1.3 H Baso # Seg Neutrophils % 72.5 H Seg Neuts % (Manual) Lymphocytes % (Manual) Monocytes % (Manual) Eosinophils % (Manual) Basophils % (Manual) Nucleated RBC % Seg Neutrophils # 10.5 H Seg Neutrophils # Man Lymphocytes # (Manual) Monocytes # (Manual) Eosinophils # (Manual) Basophils # (Manual) PT INR Fibrinogen dRVVT Confirm Interp Factor V Activity POC ABG pH POC ABG pCO2 POC ABG pO2 ABG pO2 ABG HCO3 ABG Base Excess ABG Hemoglobin Oxyhemoglobin Sodium Potassium Chloride Carbon Dioxide BUN 43 H Creatinine Glucose 124 H POC Glucose 141 H Lactic Acid Calcium 8.3 L Phosphorus Magnesium 1.60 L Direct Bilirubin AST ALT Alkaline Phosphatase Lactate Dehydrogenase Troponin T C-Reactive Protein Total Protein Albumin Prealbumin Triglycerides Cholesterol LDL Cholesterol Direct HDL Cholesterol Urine pH Urine WBC (Auto) Urine Creatinine Urine Total Protein Fluid Total Protein Vancomycin Trough Rheumatoid Factor Complement C4 Miscellaneous Test Crossmatch 12/11/16 12/11/16 12/11/16 11:15 17:59 23:48 WBC RBC Hgb Hct MCV MCH MCHC RDW Plt Count Lymph % (Auto) [place] % (Auto) Lymph # [place] # Baso # Seg Neutrophils % Seg Neuts % (Manual) Lymphocytes % (Manual) Monocytes % (Manual) Eosinophils % (Manual) Basophils % (Manual) Nucleated RBC % Seg Neutrophils # Seg Neutrophils # Man Lymphocytes # (Manual) Monocytes # (Manual) Eosinophils # (Manual) Basophils # (Manual) PT INR Fibrinogen dRVVT Confirm Interp Factor V Activity POC ABG pH POC ABG pCO2 POC ABG pO2 ABG pO2 ABG HCO3 ABG Base Excess ABG Hemoglobin Oxyhemoglobin Sodium Potassium Chloride Carbon Dioxide BUN Creatinine Glucose POC Glucose 188 H 106 H 119 H Lactic Acid Calcium Phosphorus Magnesium Direct Bilirubin AST ALT Alkaline Phosphatase Lactate Dehydrogenase Troponin T C-Reactive Protein Total Protein Albumin Prealbumin Triglycerides Cholesterol LDL Cholesterol Direct HDL Cholesterol Urine pH Urine WBC (Auto) Urine Creatinine Urine Total Protein Fluid Total Protein Vancomycin Trough Rheumatoid Factor Complement C4 Miscellaneous Test Crossmatch 12/12/16 12/12/16 12/12/16 05:00 06:01 12:20 WBC 16.7 H RBC 2.87 L Hgb 8.0 L Hct 24.2 L MCV MCH MCHC RDW 17.6 H Plt Count Lymph % (Auto) [place] % (Auto) Lymph # [place] # 1.2 H Baso # Seg Neutrophils % 75.3 H Seg Neuts % (Manual) Lymphocytes % (Manual) Monocytes % (Manual) Eosinophils % (Manual) Basophils % (Manual) Nucleated RBC % Seg Neutrophils # 12.6 H Seg Neutrophils # Man Lymphocytes # (Manual) Monocytes # (Manual) Eosinophils # (Manual) Basophils # (Manual) PT INR Fibrinogen dRVVT Confirm Interp Factor V Activity POC ABG pH POC ABG pCO2 POC ABG pO2 ABG pO2 ABG HCO3 ABG Base Excess ABG Hemoglobin Oxyhemoglobin Sodium Potassium Chloride Carbon Dioxide BUN Creatinine Glucose POC Glucose 134 H 149 H Lactic Acid Calcium Phosphorus Magnesium Direct Bilirubin AST ALT Alkaline Phosphatase Lactate Dehydrogenase Troponin T C-Reactive Protein Total Protein Albumin Prealbumin Triglycerides Cholesterol LDL Cholesterol Direct HDL Cholesterol Urine pH Urine WBC (Auto) Urine Creatinine Urine Total Protein Fluid Total Protein Vancomycin Trough Rheumatoid Factor Complement C4 Miscellaneous Test Crossmatch 12/12/16 12/12/16 12/12/16 17:38 23:01 Unknown WBC RBC Hgb Hct MCV MCH MCHC RDW Plt Count Lymph % (Auto) [place] % (Auto) Lymph # [place] # Baso # Seg Neutrophils % Seg Neuts % (Manual) Lymphocytes % (Manual) Monocytes % (Manual) Eosinophils % (Manual) Basophils % (Manual) Nucleated RBC % Seg Neutrophils # Seg Neutrophils # Man Lymphocytes # (Manual) Monocytes # (Manual) Eosinophils # (Manual) Basophils # (Manual) PT INR Fibrinogen dRVVT Confirm Interp Factor V Activity POC ABG pH POC ABG pCO2 POC ABG pO2 ABG pO2 ABG HCO3 ABG Base Excess ABG Hemoglobin Oxyhemoglobin Sodium Potassium Chloride Carbon Dioxide BUN 60 H Creatinine 1.3 H Glucose 126 H POC Glucose 127 H 144 H Lactic Acid Calcium Phosphorus Magnesium Direct Bilirubin AST ALT Alkaline Phosphatase Lactate Dehydrogenase Troponin T C-Reactive Protein Total Protein Albumin Prealbumin Triglycerides Cholesterol LDL Cholesterol Direct HDL Cholesterol Urine pH Urine WBC (Auto) Urine Creatinine Urine Total Protein Fluid Total Protein Vancomycin Trough Rheumatoid Factor Complement C4 Miscellaneous Test Crossmatch 12/13/16 12/13/16 12/13/16 04:00 04:00 05:19 WBC 18.7 H RBC 2.89 L Hgb 8.3 L Hct 24.6 L MCV MCH MCHC RDW 17.5 H Plt Count Lymph % (Auto) [place] % (Auto) Lymph # [place] # 1.3 H Baso # Seg Neutrophils % 71.5 H Seg Neuts % (Manual) Lymphocytes % (Manual) Monocytes % (Manual) Eosinophils % (Manual) Basophils % (Manual) Nucleated RBC % Seg Neutrophils # 13.4 H Seg Neutrophils # Man Lymphocytes # (Manual) Monocytes # (Manual) Eosinophils # (Manual) Basophils # (Manual) PT INR Fibrinogen dRVVT Confirm Interp Factor V Activity POC ABG pH POC ABG pCO2 POC ABG pO2 ABG pO2 ABG HCO3 ABG Base Excess ABG Hemoglobin Oxyhemoglobin Sodium Potassium Chloride Carbon Dioxide BUN 73 H Creatinine 1.5 H Glucose 141 H POC Glucose 171 H Lactic Acid Calcium Phosphorus Magnesium Direct Bilirubin AST ALT Alkaline Phosphatase Lactate Dehydrogenase Troponin T C-Reactive Protein Total Protein Albumin Prealbumin Triglycerides Cholesterol LDL Cholesterol Direct HDL Cholesterol Urine pH Urine WBC (Auto) Urine Creatinine Urine Total Protein Fluid Total Protein Vancomycin Trough Rheumatoid Factor Complement C4 Miscellaneous Test Crossmatch 12/13/16 12/13/16 12/14/16 12:28 16:48 00:01 WBC RBC Hgb Hct MCV MCH MCHC RDW Plt Count Lymph % (Auto) [place] % (Auto) Lymph # [place] # Baso # Seg Neutrophils % Seg Neuts % (Manual) Lymphocytes % (Manual) Monocytes % (Manual) Eosinophils % (Manual) Basophils % (Manual) Nucleated RBC % Seg Neutrophils # Seg Neutrophils # Man Lymphocytes # (Manual) Monocytes # (Manual) Eosinophils # (Manual) Basophils # (Manual) PT INR Fibrinogen dRVVT Confirm Interp Factor V Activity POC ABG pH POC ABG pCO2 POC ABG pO2 ABG pO2 ABG HCO3 ABG Base Excess ABG Hemoglobin Oxyhemoglobin Sodium Potassium Chloride Carbon Dioxide BUN Creatinine Glucose POC Glucose 206 H 173 H 139 H Lactic Acid Calcium Phosphorus Magnesium Direct Bilirubin AST ALT Alkaline Phosphatase Lactate Dehydrogenase Troponin T C-Reactive Protein Total Protein Albumin Prealbumin Triglycerides Cholesterol LDL Cholesterol Direct HDL Cholesterol Urine pH Urine WBC (Auto) Urine Creatinine Urine Total Protein Fluid Total Protein Vancomycin Trough Rheumatoid Factor Complement C4 Miscellaneous Test Crossmatch 12/14/16 12/14/16 12/14/16 05:16 06:10 11:17 WBC RBC Hgb Hct MCV MCH MCHC RDW Plt Count Lymph % (Auto) [place] % (Auto) Lymph # [place] # Baso # Seg Neutrophils % Seg Neuts % (Manual) Lymphocytes % (Manual) Monocytes % (Manual) Eosinophils % (Manual) Basophils % (Manual) Nucleated RBC % Seg Neutrophils # Seg Neutrophils # Man Lymphocytes # (Manual) Monocytes # (Manual) Eosinophils # (Manual) Basophils # (Manual) PT INR Fibrinogen dRVVT Confirm Interp Factor V Activity POC ABG pH POC ABG pCO2 POC ABG pO2 ABG pO2 ABG HCO3 ABG Base Excess ABG Hemoglobin Oxyhemoglobin Sodium Potassium Chloride Carbon Dioxide BUN 57 H Creatinine 1.4 H Glucose 135 H POC Glucose 158 H 137 H Lactic Acid Calcium Phosphorus Magnesium Direct Bilirubin AST ALT Alkaline Phosphatase Lactate Dehydrogenase Troponin T C-Reactive Protein Total Protein Albumin Prealbumin Triglycerides Cholesterol LDL Cholesterol Direct HDL Cholesterol Urine pH Urine WBC (Auto) Urine Creatinine Urine Total Protein Fluid Total Protein Vancomycin Trough Rheumatoid Factor Complement C4 Miscellaneous Test Crossmatch 12/14/16 12/14/16 12/15/16 17:52 23:27 04:00 WBC RBC Hgb Hct MCV MCH MCHC RDW Plt Count Lymph % (Auto) [place] % (Auto) Lymph # [place] # Baso # Seg Neutrophils % Seg Neuts % (Manual) Lymphocytes % (Manual) Monocytes % (Manual) Eosinophils % (Manual) Basophils % (Manual) Nucleated RBC % Seg Neutrophils # Seg Neutrophils # Man Lymphocytes # (Manual) Monocytes # (Manual) Eosinophils # (Manual) Basophils # (Manual) PT INR Fibrinogen dRVVT Confirm Interp Factor V Activity POC ABG pH POC ABG pCO2 POC ABG pO2 ABG pO2 ABG HCO3 ABG Base Excess ABG Hemoglobin Oxyhemoglobin Sodium Potassium Chloride 97.9 L Carbon Dioxide BUN 75 H Creatinine 1.6 H Glucose 122 H POC Glucose 149 H 163 H Lactic Acid Calcium Phosphorus 5.20 H Magnesium Direct Bilirubin AST ALT Alkaline Phosphatase Lactate Dehydrogenase Troponin T C-Reactive Protein Total Protein Albumin Prealbumin Triglycerides Cholesterol LDL Cholesterol Direct HDL Cholesterol Urine pH Urine WBC (Auto) Urine Creatinine Urine Total Protein Fluid Total Protein Vancomycin Trough Rheumatoid Factor Complement C4 Miscellaneous Test Crossmatch 12/15/16 12/15/16 12/15/16 05:50 11:24 17:01 WBC RBC Hgb Hct MCV MCH MCHC RDW Plt Count Lymph % (Auto) [place] % (Auto) Lymph # [place] # Baso # Seg Neutrophils % Seg Neuts % (Manual) Lymphocytes % (Manual) Monocytes % (Manual) Eosinophils % (Manual) Basophils % (Manual) Nucleated RBC % Seg Neutrophils # Seg Neutrophils # Man Lymphocytes # (Manual) Monocytes # (Manual) Eosinophils # (Manual) Basophils # (Manual) PT INR Fibrinogen dRVVT Confirm Interp Factor V Activity POC ABG pH POC ABG pCO2 POC ABG pO2 ABG pO2 ABG HCO3 ABG Base Excess ABG Hemoglobin Oxyhemoglobin Sodium Potassium Chloride Carbon Dioxide BUN Creatinine Glucose POC Glucose 150 H 146 H 167 H Lactic Acid Calcium Phosphorus Magnesium Direct Bilirubin AST ALT Alkaline Phosphatase Lactate Dehydrogenase Troponin T C-Reactive Protein Total Protein Albumin Prealbumin Triglycerides Cholesterol LDL Cholesterol Direct HDL Cholesterol Urine pH Urine WBC (Auto) Urine Creatinine Urine Total Protein Fluid Total Protein Vancomycin Trough Rheumatoid Factor Complement C4 Miscellaneous Test Crossmatch 12/15/16 12/16/16 12/16/16 23:34 05:25 11:24 WBC RBC Hgb Hct MCV MCH MCHC RDW Plt Count Lymph % (Auto) [place] % (Auto) Lymph # [place] # Baso # Seg Neutrophils % Seg Neuts % (Manual) Lymphocytes % (Manual) Monocytes % (Manual) Eosinophils % (Manual) Basophils % (Manual) Nucleated RBC % Seg Neutrophils # Seg Neutrophils # Man Lymphocytes # (Manual) Monocytes # (Manual) Eosinophils # (Manual) Basophils # (Manual) PT INR Fibrinogen dRVVT Confirm Interp Factor V Activity POC ABG pH POC ABG pCO2 POC ABG pO2 ABG pO2 ABG HCO3 ABG Base Excess ABG Hemoglobin Oxyhemoglobin Sodium Potassium Chloride Carbon Dioxide BUN Creatinine Glucose POC Glucose 127 H 139 H 165 H Lactic Acid Calcium Phosphorus Magnesium Direct Bilirubin AST ALT Alkaline Phosphatase Lactate Dehydrogenase Troponin T C-Reactive Protein Total Protein Albumin Prealbumin Triglycerides Cholesterol LDL Cholesterol Direct HDL Cholesterol Urine pH Urine WBC (Auto) Urine Creatinine Urine Total Protein Fluid Total Protein Vancomycin Trough Rheumatoid Factor Complement C4 Miscellaneous Test Crossmatch 12/16/16 12/16/16 12/16/16 15:30 16:25 17:31 WBC 17.8 H RBC 2.38 L Hgb 6.4 L Hct 20.3 L MCV MCH 27 L MCHC RDW 17.4 H Plt Count Lymph % (Auto) [place] % (Auto) Lymph # [place] # Baso # Seg Neutrophils % Seg Neuts % (Manual) Lymphocytes % (Manual) Monocytes % (Manual) 10.0 H Eosinophils % (Manual) Basophils % (Manual) Nucleated RBC % Seg Neutrophils # Seg Neutrophils # Man 8.5 H Lymphocytes # (Manual) Monocytes # (Manual) 1.8 H Eosinophils # (Manual) Basophils # (Manual) PT INR Fibrinogen dRVVT Confirm Interp Factor V Activity POC ABG pH POC ABG pCO2 POC ABG pO2 ABG pO2 ABG HCO3 ABG Base Excess ABG Hemoglobin Oxyhemoglobin Sodium Potassium Chloride Carbon Dioxide BUN Creatinine Glucose POC Glucose 176 H Lactic Acid Calcium Phosphorus Magnesium Direct Bilirubin AST ALT Alkaline Phosphatase Lactate Dehydrogenase Troponin T C-Reactive Protein Total Protein Albumin Prealbumin Triglycerides Cholesterol LDL Cholesterol Direct HDL Cholesterol Urine pH Urine WBC (Auto) Urine Creatinine Urine Total Protein Fluid Total Protein Vancomycin Trough Rheumatoid Factor Complement C4 Miscellaneous Test Crossmatch See Detail 12/17/16 12/17/16 12/17/16 00:14 04:00 05:00 WBC 20.0 H RBC 2.99 L Hgb 8.5 L Hct 25.7 L MCV MCH MCHC RDW 17.2 H Plt Count Lymph % (Auto) [place] % (Auto) Lymph # [place] # Baso # Seg Neutrophils % Seg Neuts % (Manual) Lymphocytes % (Manual) Monocytes % (Manual) Eosinophils % (Manual) Basophils % (Manual) Nucleated RBC % Seg Neutrophils # Seg Neutrophils # Man Lymphocytes # (Manual) Monocytes # (Manual) Eosinophils # (Manual) Basophils # (Manual) PT INR Fibrinogen dRVVT Confirm Interp Factor V Activity POC ABG pH POC ABG pCO2 POC ABG pO2 ABG pO2 ABG HCO3 ABG Base Excess ABG Hemoglobin Oxyhemoglobin Sodium Potassium Chloride 97.7 L Carbon Dioxide BUN 73 H Creatinine 1.7 H Glucose 136 H POC Glucose 148 H Lactic Acid Calcium Phosphorus 2.20 L Magnesium 2.70 H Direct Bilirubin AST ALT Alkaline Phosphatase Lactate Dehydrogenase Troponin T C-Reactive Protein Total Protein Albumin Prealbumin Triglycerides Cholesterol LDL Cholesterol Direct HDL Cholesterol Urine pH Urine WBC (Auto) Urine Creatinine Urine Total Protein Fluid Total Protein Vancomycin Trough Rheumatoid Factor Complement C4 Miscellaneous Test Crossmatch 12/17/16 12/17/16 12/17/16 05:39 12:50 16:32 WBC RBC Hgb Hct MCV MCH MCHC RDW Plt Count Lymph % (Auto) [place] % (Auto) Lymph # [place] # Baso # Seg Neutrophils % Seg Neuts % (Manual) Lymphocytes % (Manual) Monocytes % (Manual) Eosinophils % (Manual) Basophils % (Manual) Nucleated RBC % Seg Neutrophils # Seg Neutrophils # Man Lymphocytes # (Manual) Monocytes # (Manual) Eosinophils # (Manual) Basophils # (Manual) PT INR Fibrinogen dRVVT Confirm Interp Factor V Activity POC ABG pH POC ABG pCO2 POC ABG pO2 ABG pO2 ABG HCO3 ABG Base Excess ABG Hemoglobin Oxyhemoglobin Sodium Potassium Chloride Carbon Dioxide BUN Creatinine Glucose POC Glucose 162 H 146 H 169 H Lactic Acid Calcium Phosphorus Magnesium Direct Bilirubin AST ALT Alkaline Phosphatase Lactate Dehydrogenase Troponin T C-Reactive Protein Total Protein Albumin Prealbumin Triglycerides Cholesterol LDL Cholesterol Direct HDL Cholesterol Urine pH Urine WBC (Auto) Urine Creatinine Urine Total Protein Fluid Total Protein Vancomycin Trough Rheumatoid Factor Complement C4 Miscellaneous Test Crossmatch 12/17/16 12/18/16 12/18/16 23:57 05:00 05:32 WBC RBC Hgb Hct MCV MCH MCHC RDW Plt Count Lymph % (Auto) [place] % (Auto) Lymph # [place] # Baso # Seg Neutrophils % Seg Neuts % (Manual) Lymphocytes % (Manual) Monocytes % (Manual) Eosinophils % (Manual) Basophils % (Manual) Nucleated RBC % Seg Neutrophils # Seg Neutrophils # Man Lymphocytes # (Manual) Monocytes # (Manual) Eosinophils # (Manual) Basophils # (Manual) PT INR Fibrinogen dRVVT Confirm Interp Factor V Activity POC ABG pH POC ABG pCO2 POC ABG pO2 ABG pO2 ABG HCO3 ABG Base Excess ABG Hemoglobin Oxyhemoglobin Sodium Potassium Chloride 97.0 L Carbon Dioxide BUN 63 H Creatinine 1.4 H Glucose 174 H POC Glucose 145 H 201 H Lactic Acid Calcium Phosphorus 1.70 L D Magnesium Direct Bilirubin AST ALT Alkaline Phosphatase 257 H Lactate Dehydrogenase Troponin T C-Reactive Protein Total Protein 5.9 L Albumin 1.8 L Prealbumin Triglycerides Cholesterol LDL Cholesterol Direct HDL Cholesterol Urine pH Urine WBC (Auto) Urine Creatinine Urine Total Protein Fluid Total Protein Vancomycin Trough Rheumatoid Factor Complement C4 Miscellaneous Test Crossmatch 12/18/16 12/18/16 12/18/16 11:43 16:52 23:52 WBC RBC Hgb Hct MCV MCH MCHC RDW Plt Count Lymph % (Auto) [place] % (Auto) Lymph # [place] # Baso # Seg Neutrophils % Seg Neuts % (Manual) Lymphocytes % (Manual) Monocytes % (Manual) Eosinophils % (Manual) Basophils % (Manual) Nucleated RBC % Seg Neutrophils # Seg Neutrophils # Man Lymphocytes # (Manual) Monocytes # (Manual) Eosinophils # (Manual) Basophils # (Manual) PT INR Fibrinogen dRVVT Confirm Interp Factor V Activity POC ABG pH POC ABG pCO2 POC ABG pO2 ABG pO2 ABG HCO3 ABG Base Excess ABG Hemoglobin Oxyhemoglobin Sodium Potassium Chloride Carbon Dioxide BUN Creatinine Glucose POC Glucose 177 H 110 H 162 H Lactic Acid Calcium Phosphorus Magnesium Direct Bilirubin AST ALT Alkaline Phosphatase Lactate Dehydrogenase Troponin T C-Reactive Protein Total Protein Albumin Prealbumin Triglycerides Cholesterol LDL Cholesterol Direct HDL Cholesterol Urine pH Urine WBC (Auto) Urine Creatinine Urine Total Protein Fluid Total Protein Vancomycin Trough Rheumatoid Factor Complement C4 Miscellaneous Test Crossmatch 12/19/16 12/19/16 12/19/16 05:02 05:24 09:30 WBC 20.1 H RBC 2.73 L Hgb 7.6 L Hct 23.6 L MCV MCH MCHC RDW 17.6 H Plt Count Lymph % (Auto) [place] % (Auto) Lymph # [place] # Baso # Seg Neutrophils % Seg Neuts % (Manual) Lymphocytes % (Manual) 13.0 L Monocytes % (Manual) Eosinophils % (Manual) Basophils % (Manual) Nucleated RBC % 1.0 H Seg Neutrophils # Seg Neutrophils # Man 12.9 H Lymphocytes # (Manual) Monocytes # (Manual) 1.4 H Eosinophils # (Manual) Basophils # (Manual) 0.2 H PT INR Fibrinogen dRVVT Confirm Interp Factor V Activity POC ABG pH POC ABG pCO2 POC ABG pO2 ABG pO2 ABG HCO3 ABG Base Excess ABG Hemoglobin Oxyhemoglobin Sodium Potassium Chloride 97.8 L Carbon Dioxide BUN 84 H Creatinine 1.6 H Glucose 133 H POC Glucose 134 H Lactic Acid Calcium Phosphorus Magnesium Direct Bilirubin AST ALT Alkaline Phosphatase Lactate Dehydrogenase Troponin T C-Reactive Protein Total Protein Albumin Prealbumin Triglycerides Cholesterol LDL Cholesterol Direct HDL Cholesterol Urine pH Urine WBC (Auto) Urine Creatinine Urine Total Protein Fluid Total Protein Vancomycin Trough Rheumatoid Factor Complement C4 Miscellaneous Test Crossmatch 12/19/16 12/19/16 12/19/16 09:36 11:12 18:29 WBC RBC Hgb Hct MCV MCH MCHC RDW Plt Count Lymph % (Auto) [place] % (Auto) Lymph # [place] # Baso # Seg Neutrophils % Seg Neuts % (Manual) Lymphocytes % (Manual) Monocytes % (Manual) Eosinophils % (Manual) Basophils % (Manual) Nucleated RBC % Seg Neutrophils # Seg Neutrophils # Man Lymphocytes # (Manual) Monocytes # (Manual) Eosinophils # (Manual) Basophils # (Manual) PT INR Fibrinogen dRVVT Confirm Interp Factor V Activity POC ABG pH 7.503 H POC ABG pCO2 30.1 L POC ABG pO2 ABG pO2 ABG HCO3 ABG Base Excess ABG Hemoglobin Oxyhemoglobin Sodium Potassium Chloride Carbon Dioxide BUN Creatinine Glucose POC Glucose 138 H 156 H Lactic Acid Calcium Phosphorus Magnesium Direct Bilirubin AST ALT Alkaline Phosphatase Lactate Dehydrogenase Troponin T C-Reactive Protein Total Protein Albumin Prealbumin Triglycerides Cholesterol LDL Cholesterol Direct HDL Cholesterol Urine pH Urine WBC (Auto) Urine Creatinine Urine Total Protein Fluid Total Protein Vancomycin Trough Rheumatoid Factor Complement C4 Miscellaneous Test Crossmatch 12/20/16 12/20/16 12/20/16 00:03 06:17 07:07 WBC RBC Hgb Hct MCV MCH MCHC RDW Plt Count Lymph % (Auto) [place] % (Auto) Lymph # [place] # Baso # Seg Neutrophils % Seg Neuts % (Manual) Lymphocytes % (Manual) Monocytes % (Manual) Eosinophils % (Manual) Basophils % (Manual) Nucleated RBC % Seg Neutrophils # Seg Neutrophils # Man Lymphocytes # (Manual) Monocytes # (Manual) Eosinophils # (Manual) Basophils # (Manual) PT INR Fibrinogen dRVVT Confirm Interp Factor V Activity POC ABG pH POC ABG pCO2 POC ABG pO2 ABG pO2 ABG HCO3 ABG Base Excess ABG Hemoglobin Oxyhemoglobin Sodium Potassium Chloride 97.1 L Carbon Dioxide 20 L BUN 97 H Creatinine 1.8 H Glucose 153 H POC Glucose 152 H 175 H Lactic Acid Calcium Phosphorus Magnesium Direct Bilirubin AST ALT Alkaline Phosphatase Lactate Dehydrogenase Troponin T C-Reactive Protein Total Protein Albumin Prealbumin Triglycerides Cholesterol LDL Cholesterol Direct HDL Cholesterol Urine pH Urine WBC (Auto) Urine Creatinine Urine Total Protein Fluid Total Protein Vancomycin Trough Rheumatoid Factor Complement C4 Miscellaneous Test Crossmatch 12/20/16 12/20/16 12/20/16 12:00 17:42 23:53 WBC RBC Hgb Hct MCV MCH MCHC RDW Plt Count Lymph % (Auto) [place] % (Auto) Lymph # [place] # Baso # Seg Neutrophils % Seg Neuts % (Manual) Lymphocytes % (Manual) Monocytes % (Manual) Eosinophils % (Manual) Basophils % (Manual) Nucleated RBC % Seg Neutrophils # Seg Neutrophils # Man Lymphocytes # (Manual) Monocytes # (Manual) Eosinophils # (Manual) Basophils # (Manual) PT INR Fibrinogen dRVVT Confirm Interp Factor V Activity POC ABG pH POC ABG pCO2 POC ABG pO2 ABG pO2 ABG HCO3 ABG Base Excess ABG Hemoglobin Oxyhemoglobin Sodium Potassium Chloride Carbon Dioxide BUN Creatinine Glucose POC Glucose 141 H 156 H 132 H Lactic Acid Calcium Phosphorus Magnesium Direct Bilirubin AST ALT Alkaline Phosphatase Lactate Dehydrogenase Troponin T C-Reactive Protein Total Protein Albumin Prealbumin Triglycerides Cholesterol LDL Cholesterol Direct HDL Cholesterol Urine pH Urine WBC (Auto) Urine Creatinine Urine Total Protein Fluid Total Protein Vancomycin Trough Rheumatoid Factor Complement C4 Miscellaneous Test Crossmatch 12/21/16 12/21/16 12/21/16 05:49 08:50 12:19 WBC RBC Hgb Hct MCV MCH MCHC RDW Plt Count Lymph % (Auto) [place] % (Auto) Lymph # [place] # Baso # Seg Neutrophils % Seg Neuts % (Manual) Lymphocytes % (Manual) Monocytes % (Manual) Eosinophils % (Manual) Basophils % (Manual) Nucleated RBC % Seg Neutrophils # Seg Neutrophils # Man Lymphocytes # (Manual) Monocytes # (Manual) Eosinophils # (Manual) Basophils # (Manual) PT INR Fibrinogen dRVVT Confirm Interp Factor V Activity POC ABG pH POC ABG pCO2 POC ABG pO2 ABG pO2 ABG HCO3 ABG Base Excess ABG Hemoglobin Oxyhemoglobin Sodium Potassium 5.2 H D Chloride Carbon Dioxide BUN 63 H Creatinine Glucose 122 H POC Glucose 132 H 136 H Lactic Acid Calcium 8.3 L Phosphorus Magnesium Direct Bilirubin AST ALT Alkaline Phosphatase Lactate Dehydrogenase Troponin T C-Reactive Protein Total Protein Albumin Prealbumin Triglycerides Cholesterol LDL Cholesterol Direct HDL Cholesterol Urine pH Urine WBC (Auto) Urine Creatinine Urine Total Protein Fluid Total Protein Vancomycin Trough Rheumatoid Factor Complement C4 Miscellaneous Test Crossmatch 12/21/16 12/21/16 12/22/16 17:22 23:58 05:49 WBC RBC Hgb Hct MCV MCH MCHC RDW Plt Count Lymph % (Auto) [place] % (Auto) Lymph # [place] # Baso # Seg Neutrophils % Seg Neuts % (Manual) Lymphocytes % (Manual) Monocytes % (Manual) Eosinophils % (Manual) Basophils % (Manual) Nucleated RBC % Seg Neutrophils # Seg Neutrophils # Man Lymphocytes # (Manual) Monocytes # (Manual) Eosinophils # (Manual) Basophils # (Manual) PT INR Fibrinogen dRVVT Confirm Interp Factor V Activity POC ABG pH POC ABG pCO2 POC ABG pO2 ABG pO2 ABG HCO3 ABG Base Excess ABG Hemoglobin Oxyhemoglobin Sodium Potassium Chloride Carbon Dioxide BUN Creatinine Glucose POC Glucose 135 H 149 H 140 H Lactic Acid Calcium Phosphorus Magnesium Direct Bilirubin AST ALT Alkaline Phosphatase Lactate Dehydrogenase Troponin T C-Reactive Protein Total Protein Albumin Prealbumin Triglycerides Cholesterol LDL Cholesterol Direct HDL Cholesterol Urine pH Urine WBC (Auto) Urine Creatinine Urine Total Protein Fluid Total Protein Vancomycin Trough Rheumatoid Factor Complement C4 Miscellaneous Test Crossmatch 12/22/16 12/22/16 12/22/16 06:10 11:17 17:31 WBC RBC Hgb Hct MCV MCH MCHC RDW Plt Count Lymph % (Auto) [place] % (Auto) Lymph # [place] # Baso # Seg Neutrophils % Seg Neuts % (Manual) Lymphocytes % (Manual) Monocytes % (Manual) Eosinophils % (Manual) Basophils % (Manual) Nucleated RBC % Seg Neutrophils # Seg Neutrophils # Man Lymphocytes # (Manual) Monocytes # (Manual) Eosinophils # (Manual) Basophils # (Manual) PT INR Fibrinogen dRVVT Confirm Interp Factor V Activity POC ABG pH POC ABG pCO2 POC ABG pO2 ABG pO2 ABG HCO3 ABG Base Excess ABG Hemoglobin Oxyhemoglobin Sodium Potassium Chloride Carbon Dioxide BUN 76 H Creatinine 1.5 H Glucose 241 H POC Glucose 193 H 148 H Lactic Acid Calcium Phosphorus Magnesium Direct Bilirubin AST ALT Alkaline Phosphatase Lactate Dehydrogenase Troponin T C-Reactive Protein Total Protein Albumin Prealbumin Triglycerides Cholesterol LDL Cholesterol Direct HDL Cholesterol Urine pH Urine WBC (Auto) Urine Creatinine Urine Total Protein Fluid Total Protein Vancomycin Trough Rheumatoid Factor Complement C4 Miscellaneous Test Crossmatch 12/22/16 12/23/16 12/23/16 23:58 05:00 05:26 WBC RBC Hgb Hct MCV MCH MCHC RDW Plt Count Lymph % (Auto) [place] % (Auto) Lymph # [place] # Baso # Seg Neutrophils % Seg Neuts % (Manual) Lymphocytes % (Manual) Monocytes % (Manual) Eosinophils % (Manual) Basophils % (Manual) Nucleated RBC % Seg Neutrophils # Seg Neutrophils # Man Lymphocytes # (Manual) Monocytes # (Manual) Eosinophils # (Manual) Basophils # (Manual) PT INR Fibrinogen dRVVT Confirm Interp Factor V Activity POC ABG pH POC ABG pCO2 POC ABG pO2 ABG pO2 ABG HCO3 ABG Base Excess ABG Hemoglobin Oxyhemoglobin Sodium Potassium Chloride Carbon Dioxide BUN 49 H Creatinine Glucose 143 H POC Glucose 165 H 154 H Lactic Acid Calcium 8.2 L Phosphorus Magnesium 1.60 L Direct Bilirubin AST ALT Alkaline Phosphatase Lactate Dehydrogenase Troponin T C-Reactive Protein Total Protein Albumin Prealbumin Triglycerides Cholesterol LDL Cholesterol Direct HDL Cholesterol Urine pH Urine WBC (Auto) Urine Creatinine Urine Total Protein Fluid Total Protein Vancomycin Trough Rheumatoid Factor Complement C4 Miscellaneous Test Crossmatch 12/23/16 12/23/16 12/24/16 12:35 17:01 00:01 WBC RBC Hgb Hct MCV MCH MCHC RDW Plt Count Lymph % (Auto) [place] % (Auto) Lymph # [place] # Baso # Seg Neutrophils % Seg Neuts % (Manual) Lymphocytes % (Manual) Monocytes % (Manual) Eosinophils % (Manual) Basophils % (Manual) Nucleated RBC % Seg Neutrophils # Seg Neutrophils # Man Lymphocytes # (Manual) Monocytes # (Manual) Eosinophils # (Manual) Basophils # (Manual) PT INR Fibrinogen dRVVT Confirm Interp Factor V Activity POC ABG pH POC ABG pCO2 POC ABG pO2 ABG pO2 ABG HCO3 ABG Base Excess ABG Hemoglobin Oxyhemoglobin Sodium Potassium Chloride Carbon Dioxide BUN Creatinine Glucose POC Glucose 164 H 149 H 135 H Lactic Acid Calcium Phosphorus Magnesium Direct Bilirubin AST ALT Alkaline Phosphatase Lactate Dehydrogenase Troponin T C-Reactive Protein Total Protein Albumin Prealbumin Triglycerides Cholesterol LDL Cholesterol Direct HDL Cholesterol Urine pH Urine WBC (Auto) Urine Creatinine Urine Total Protein Fluid Total Protein Vancomycin Trough Rheumatoid Factor Complement C4 Miscellaneous Test Crossmatch 12/24/16 12/24/16 12/24/16 05:41 07:01 11:38 WBC RBC Hgb Hct MCV MCH MCHC RDW Plt Count Lymph % (Auto) [place] % (Auto) Lymph # [place] # Baso # Seg Neutrophils % Seg Neuts % (Manual) Lymphocytes % (Manual) Monocytes % (Manual) Eosinophils % (Manual) Basophils % (Manual) Nucleated RBC % Seg Neutrophils # Seg Neutrophils # Man Lymphocytes # (Manual) Monocytes # (Manual) Eosinophils # (Manual) Basophils # (Manual) PT INR Fibrinogen dRVVT Confirm Interp Factor V Activity POC ABG pH POC ABG pCO2 POC ABG pO2 ABG pO2 ABG HCO3 ABG Base Excess ABG Hemoglobin Oxyhemoglobin Sodium Potassium Chloride Carbon Dioxide BUN 72 H Creatinine 1.3 H Glucose 130 H POC Glucose 132 H 156 H Lactic Acid Calcium 8.2 L Phosphorus Magnesium Direct Bilirubin AST ALT Alkaline Phosphatase Lactate Dehydrogenase Troponin T C-Reactive Protein Total Protein Albumin Prealbumin Triglycerides Cholesterol LDL Cholesterol Direct HDL Cholesterol Urine pH Urine WBC (Auto) Urine Creatinine Urine Total Protein Fluid Total Protein Vancomycin Trough Rheumatoid Factor Complement C4 Miscellaneous Test Crossmatch 12/24/16 12/25/16 12/25/16 17:53 00:23 05:45 WBC RBC Hgb Hct MCV MCH MCHC RDW Plt Count Lymph % (Auto) [place] % (Auto) Lymph # [place] # Baso # Seg Neutrophils % Seg Neuts % (Manual) Lymphocytes % (Manual) Monocytes % (Manual) Eosinophils % (Manual) Basophils % (Manual) Nucleated RBC % Seg Neutrophils # Seg Neutrophils # Man Lymphocytes # (Manual) Monocytes # (Manual) Eosinophils # (Manual) Basophils # (Manual) PT INR Fibrinogen dRVVT Confirm Interp Factor V Activity POC ABG pH POC ABG pCO2 POC ABG pO2 ABG pO2 ABG HCO3 ABG Base Excess ABG Hemoglobin Oxyhemoglobin Sodium 146 H Potassium Chloride Carbon Dioxide BUN 51 H Creatinine Glucose 109 H POC Glucose 169 H 117 H Lactic Acid Calcium Phosphorus Magnesium Direct Bilirubin AST ALT Alkaline Phosphatase Lactate Dehydrogenase Troponin T C-Reactive Protein Total Protein Albumin Prealbumin Triglycerides Cholesterol LDL Cholesterol Direct HDL Cholesterol Urine pH Urine WBC (Auto) Urine Creatinine Urine Total Protein Fluid Total Protein Vancomycin Trough Rheumatoid Factor Complement C4 Miscellaneous Test Crossmatch 12/25/16 12/25/16 12/25/16 06:43 11:29 17:14 WBC RBC Hgb Hct MCV MCH MCHC RDW Plt Count Lymph % (Auto) [place] % (Auto) Lymph # [place] # Baso # Seg Neutrophils % Seg Neuts % (Manual) Lymphocytes % (Manual) Monocytes % (Manual) Eosinophils % (Manual) Basophils % (Manual) Nucleated RBC % Seg Neutrophils # Seg Neutrophils # Man Lymphocytes # (Manual) Monocytes # (Manual) Eosinophils # (Manual) Basophils # (Manual) PT INR Fibrinogen dRVVT Confirm Interp Factor V Activity POC ABG pH POC ABG pCO2 POC ABG pO2 ABG pO2 ABG HCO3 ABG Base Excess ABG Hemoglobin Oxyhemoglobin Sodium Potassium Chloride Carbon Dioxide BUN Creatinine Glucose POC Glucose 117 H 128 H 120 H Lactic Acid Calcium Phosphorus Magnesium Direct Bilirubin AST ALT Alkaline Phosphatase Lactate Dehydrogenase Troponin T C-Reactive Protein Total Protein Albumin Prealbumin Triglycerides Cholesterol LDL Cholesterol Direct HDL Cholesterol Urine pH Urine WBC (Auto) Urine Creatinine Urine Total Protein Fluid Total Protein Vancomycin Trough Rheumatoid Factor Complement C4 Miscellaneous Test Crossmatch 12/25/16 12/26/16 12/26/16 23:54 05:40 05:50 WBC 16.2 H RBC 2.32 L Hgb 6.2 L Hct 20.1 L MCV MCH 27 L MCHC RDW 18.6 H Plt Count Lymph % (Auto) [place] % (Auto) Lymph # [place] # Baso # Seg Neutrophils % Seg Neuts % (Manual) Lymphocytes % (Manual) Monocytes % (Manual) Eosinophils % (Manual) Basophils % (Manual) Nucleated RBC % Seg Neutrophils # Seg Neutrophils # Man Lymphocytes # (Manual) Monocytes # (Manual) Eosinophils # (Manual) Basophils # (Manual) PT INR Fibrinogen dRVVT Confirm Interp Factor V Activity POC ABG pH POC ABG pCO2 POC ABG pO2 ABG pO2 ABG HCO3 ABG Base Excess ABG Hemoglobin Oxyhemoglobin Sodium Potassium Chloride Carbon Dioxide BUN Creatinine Glucose POC Glucose 126 H 132 H Lactic Acid Calcium Phosphorus Magnesium Direct Bilirubin AST ALT Alkaline Phosphatase Lactate Dehydrogenase Troponin T C-Reactive Protein Total Protein Albumin Prealbumin Triglycerides Cholesterol LDL Cholesterol Direct HDL Cholesterol Urine pH Urine WBC (Auto) Urine Creatinine Urine Total Protein Fluid Total Protein Vancomycin Trough Rheumatoid Factor Complement C4 Miscellaneous Test Crossmatch 12/26/16 12/26/16 12/26/16 05:50 12:17 12:33 WBC RBC Hgb Hct MCV MCH MCHC RDW Plt Count Lymph % (Auto) [place] % (Auto) Lymph # [place] # Baso # Seg Neutrophils % Seg Neuts % (Manual) Lymphocytes % (Manual) Monocytes % (Manual) Eosinophils % (Manual) Basophils % (Manual) Nucleated RBC % Seg Neutrophils # Seg Neutrophils # Man Lymphocytes # (Manual) Monocytes # (Manual) Eosinophils # (Manual) Basophils # (Manual) PT INR Fibrinogen dRVVT Confirm Interp Factor V Activity POC ABG pH POC ABG pCO2 POC ABG pO2 ABG pO2 ABG HCO3 ABG Base Excess ABG Hemoglobin Oxyhemoglobin Sodium Potassium Chloride Carbon Dioxide BUN 73 H Creatinine 1.3 H Glucose 113 H POC Glucose 117 H Lactic Acid Calcium Phosphorus Magnesium Direct Bilirubin AST ALT Alkaline Phosphatase Lactate Dehydrogenase Troponin T C-Reactive Protein Total Protein Albumin Prealbumin Triglycerides Cholesterol LDL Cholesterol Direct HDL Cholesterol Urine pH Urine WBC (Auto) Urine Creatinine Urine Total Protein Fluid Total Protein Vancomycin Trough Rheumatoid Factor Complement C4 Miscellaneous Test Crossmatch See Detail 12/26/16 12/26/16 12/27/16 20:00 23:21 05:00 WBC RBC Hgb 8.4 L Hct 26.3 L D MCV MCH MCHC RDW Plt Count Lymph % (Auto) [place] % (Auto) Lymph # [place] # Baso # Seg Neutrophils % Seg Neuts % (Manual) Lymphocytes % (Manual) Monocytes % (Manual) Eosinophils % (Manual) Basophils % (Manual) Nucleated RBC % Seg Neutrophils # Seg Neutrophils # Man Lymphocytes # (Manual) Monocytes # (Manual) Eosinophils # (Manual) Basophils # (Manual) PT INR Fibrinogen dRVVT Confirm Interp Factor V Activity POC ABG pH POC ABG pCO2 POC ABG pO2 ABG pO2 ABG HCO3 ABG Base Excess ABG Hemoglobin Oxyhemoglobin Sodium Potassium Chloride Carbon Dioxide BUN 85 H Creatinine 1.6 H Glucose 118 H POC Glucose 124 H Lactic Acid Calcium Phosphorus 4.80 H Magnesium Direct Bilirubin AST ALT Alkaline Phosphatase Lactate Dehydrogenase Troponin T C-Reactive Protein Total Protein Albumin Prealbumin Triglycerides Cholesterol LDL Cholesterol Direct HDL Cholesterol Urine pH Urine WBC (Auto) Urine Creatinine Urine Total Protein Fluid Total Protein Vancomycin Trough Rheumatoid Factor Complement C4 Miscellaneous Test Crossmatch 12/27/16 12/27/16 12/27/16 05:00 05:35 12:24 WBC RBC Hgb 7.6 L Hct 22.8 L MCV MCH MCHC RDW Plt Count Lymph % (Auto) [place] % (Auto) Lymph # [place] # Baso # Seg Neutrophils % Seg Neuts % (Manual) Lymphocytes % (Manual) Monocytes % (Manual) Eosinophils % (Manual) Basophils % (Manual) Nucleated RBC % Seg Neutrophils # Seg Neutrophils # Man Lymphocytes # (Manual) Monocytes # (Manual) Eosinophils # (Manual) Basophils # (Manual) PT INR Fibrinogen dRVVT Confirm Interp Factor V Activity POC ABG pH POC ABG pCO2 POC ABG pO2 ABG pO2 ABG HCO3 ABG Base Excess ABG Hemoglobin Oxyhemoglobin Sodium Potassium Chloride Carbon Dioxide BUN Creatinine Glucose POC Glucose 115 H 131 H Lactic Acid Calcium Phosphorus Magnesium Direct Bilirubin AST ALT Alkaline Phosphatase Lactate Dehydrogenase Troponin T C-Reactive Protein Total Protein Albumin Prealbumin Triglycerides Cholesterol LDL Cholesterol Direct HDL Cholesterol Urine pH Urine WBC (Auto) Urine Creatinine Urine Total Protein Fluid Total Protein Vancomycin Trough Rheumatoid Factor Complement C4 Miscellaneous Test Crossmatch 12/27/16 12/28/16 12/28/16 17:16 00:18 04:00 WBC RBC Hgb Hct MCV MCH MCHC RDW Plt Count Lymph % (Auto) [place] % (Auto) Lymph # [place] # Baso # Seg Neutrophils % Seg Neuts % (Manual) Lymphocytes % (Manual) Monocytes % (Manual) Eosinophils % (Manual) Basophils % (Manual) Nucleated RBC % Seg Neutrophils # Seg Neutrophils # Man Lymphocytes # (Manual) Monocytes # (Manual) Eosinophils # (Manual) Basophils # (Manual) PT INR Fibrinogen dRVVT Confirm Interp Factor V Activity POC ABG pH POC ABG pCO2 POC ABG pO2 ABG pO2 ABG HCO3 ABG Base Excess ABG Hemoglobin Oxyhemoglobin Sodium Potassium 3.5 L Chloride Carbon Dioxide BUN 57 H Creatinine Glucose 118 H POC Glucose 136 H 120 H Lactic Acid Calcium 8.3 L Phosphorus Magnesium Direct Bilirubin AST ALT Alkaline Phosphatase Lactate Dehydrogenase Troponin T C-Reactive Protein Total Protein Albumin Prealbumin Triglycerides Cholesterol LDL Cholesterol Direct HDL Cholesterol Urine pH Urine WBC (Auto) Urine Creatinine Urine Total Protein Fluid Total Protein Vancomycin Trough Rheumatoid Factor Complement C4 Miscellaneous Test Crossmatch 12/28/16 12/28/16 12/28/16 04:00 05:11 08:30 WBC 17.0 H RBC 2.58 L Hgb 7.1 L Hct 22.0 L MCV MCH MCHC RDW 17.6 H Plt Count Lymph % (Auto) 12.2 L [place] % (Auto) Lymph # [place] # 1.1 H Baso # Seg Neutrophils % 80.5 H Seg Neuts % (Manual) Lymphocytes % (Manual) Monocytes % (Manual) Eosinophils % (Manual) Basophils % (Manual) Nucleated RBC % Seg Neutrophils # 13.7 H Seg Neutrophils # Man Lymphocytes # (Manual) Monocytes # (Manual) Eosinophils # (Manual) Basophils # (Manual) PT 16.1 H INR 1.23 H Fibrinogen dRVVT Confirm Interp Factor V Activity POC ABG pH POC ABG pCO2 POC ABG pO2 ABG pO2 ABG HCO3 ABG Base Excess ABG Hemoglobin Oxyhemoglobin Sodium Potassium Chloride Carbon Dioxide BUN Creatinine Glucose POC Glucose 122 H Lactic Acid Calcium Phosphorus Magnesium Direct Bilirubin AST ALT Alkaline Phosphatase Lactate Dehydrogenase Troponin T C-Reactive Protein Total Protein Albumin Prealbumin Triglycerides Cholesterol LDL Cholesterol Direct HDL Cholesterol Urine pH Urine WBC (Auto) Urine Creatinine Urine Total Protein Fluid Total Protein Vancomycin Trough Rheumatoid Factor Complement C4 Miscellaneous Test Crossmatch 12/28/16 12/28/16 12/28/16 12:27 16:32 23:46 WBC RBC Hgb Hct MCV MCH MCHC RDW Plt Count Lymph % (Auto) [place] % (Auto) Lymph # [place] # Baso # Seg Neutrophils % Seg Neuts % (Manual) Lymphocytes % (Manual) Monocytes % (Manual) Eosinophils % (Manual) Basophils % (Manual) Nucleated RBC % Seg Neutrophils # Seg Neutrophils # Man Lymphocytes # (Manual) Monocytes # (Manual) Eosinophils # (Manual) Basophils # (Manual) PT INR Fibrinogen dRVVT Confirm Interp Factor V Activity POC ABG pH POC ABG pCO2 POC ABG pO2 ABG pO2 ABG HCO3 ABG Base Excess ABG Hemoglobin Oxyhemoglobin Sodium Potassium Chloride Carbon Dioxide BUN Creatinine Glucose POC Glucose 127 H 117 H 108 H Lactic Acid Calcium Phosphorus Magnesium Direct Bilirubin AST ALT Alkaline Phosphatase Lactate Dehydrogenase Troponin T C-Reactive Protein Total Protein Albumin Prealbumin Triglycerides Cholesterol LDL Cholesterol Direct HDL Cholesterol Urine pH Urine WBC (Auto) Urine Creatinine Urine Total Protein Fluid Total Protein Vancomycin Trough Rheumatoid Factor Complement C4 Miscellaneous Test Crossmatch 12/29/16 12/29/16 12/29/16 05:15 05:15 05:32 WBC RBC Hgb Hct MCV MCH MCHC RDW Plt Count Lymph % (Auto) [place] % (Auto) Lymph # [place] # Baso # Seg Neutrophils % Seg Neuts % (Manual) Lymphocytes % (Manual) Monocytes % (Manual) Eosinophils % (Manual) Basophils % (Manual) Nucleated RBC % Seg Neutrophils # Seg Neutrophils # Man Lymphocytes # (Manual) Monocytes # (Manual) Eosinophils # (Manual) Basophils # (Manual) PT INR Fibrinogen dRVVT Confirm Interp Factor V Activity POC ABG pH POC ABG pCO2 POC ABG pO2 ABG pO2 ABG HCO3 ABG Base Excess ABG Hemoglobin Oxyhemoglobin Sodium Potassium Chloride Carbon Dioxide BUN 74 H Creatinine 1.6 H Glucose 111 H POC Glucose 123 H Lactic Acid Calcium Phosphorus Magnesium Direct Bilirubin AST ALT Alkaline Phosphatase Lactate Dehydrogenase Troponin T C-Reactive Protein Total Protein Albumin Prealbumin 0.110 L Triglycerides Cholesterol LDL Cholesterol Direct HDL Cholesterol Urine pH Urine WBC (Auto) Urine Creatinine Urine Total Protein Fluid Total Protein Vancomycin Trough Rheumatoid Factor Complement C4 Miscellaneous Test Crossmatch 12/29/16 12/29/16 12/29/16 11:43 13:45 14:00 WBC 13.8 H RBC 2.26 L Hgb 6.3 L Hct 20.4 L MCV MCH MCHC RDW 18.3 H Plt Count Lymph % (Auto) [place] % (Auto) Lymph # [place] # 0.9 H Baso # Seg Neutrophils % 78.6 H Seg Neuts % (Manual) Lymphocytes % (Manual) Monocytes % (Manual) Eosinophils % (Manual) Basophils % (Manual) Nucleated RBC % Seg Neutrophils # 10.8 H Seg Neutrophils # Man Lymphocytes # (Manual) Monocytes # (Manual) Eosinophils # (Manual) Basophils # (Manual) PT INR Fibrinogen dRVVT Confirm Interp Factor V Activity POC ABG pH POC ABG pCO2 POC ABG pO2 ABG pO2 ABG HCO3 ABG Base Excess ABG Hemoglobin Oxyhemoglobin Sodium Potassium Chloride Carbon Dioxide BUN Creatinine Glucose POC Glucose 133 H Lactic Acid Calcium Phosphorus Magnesium Direct Bilirubin AST ALT Alkaline Phosphatase Lactate Dehydrogenase Troponin T C-Reactive Protein Total Protein Albumin Prealbumin Triglycerides Cholesterol LDL Cholesterol Direct HDL Cholesterol Urine pH Urine WBC (Auto) Urine Creatinine Urine Total Protein Fluid Total Protein Vancomycin Trough Rheumatoid Factor Complement C4 Miscellaneous Test Crossmatch See Detail 12/29/16 12/29/16 12/29/16 17:03 23:15 23:22 WBC RBC Hgb 7.3 L Hct 22.3 L MCV MCH MCHC RDW Plt Count Lymph % (Auto) [place] % (Auto) Lymph # [place] # Baso # Seg Neutrophils % Seg Neuts % (Manual) Lymphocytes % (Manual) Monocytes % (Manual) Eosinophils % (Manual) Basophils % (Manual) Nucleated RBC % Seg Neutrophils # Seg Neutrophils # Man Lymphocytes # (Manual) Monocytes # (Manual) Eosinophils # (Manual) Basophils # (Manual) PT INR Fibrinogen dRVVT Confirm Interp Factor V Activity POC ABG pH POC ABG pCO2 POC ABG pO2 ABG pO2 ABG HCO3 ABG Base Excess ABG Hemoglobin Oxyhemoglobin Sodium Potassium Chloride Carbon Dioxide BUN Creatinine Glucose POC Glucose 139 H 120 H Lactic Acid Calcium Phosphorus Magnesium Direct Bilirubin AST ALT Alkaline Phosphatase Lactate Dehydrogenase Troponin T C-Reactive Protein Total Protein Albumin Prealbumin Triglycerides Cholesterol LDL Cholesterol Direct HDL Cholesterol Urine pH Urine WBC (Auto) Urine Creatinine Urine Total Protein Fluid Total Protein Vancomycin Trough Rheumatoid Factor Complement C4 Miscellaneous Test Crossmatch 12/30/16 12/30/16 12/30/16 04:20 04:20 05:43 WBC 15.6 H RBC 2.81 L Hgb 8.0 L Hct 24.0 L MCV MCH MCHC RDW 16.9 H Plt Count Lymph % (Auto) [place] % (Auto) Lymph # [place] # 1.0 H Baso # Seg Neutrophils % 76.2 H Seg Neuts % (Manual) Lymphocytes % (Manual) Monocytes % (Manual) Eosinophils % (Manual) Basophils % (Manual) Nucleated RBC % Seg Neutrophils # 11.9 H Seg Neutrophils # Man Lymphocytes # (Manual) Monocytes # (Manual) Eosinophils # (Manual) Basophils # (Manual) PT INR Fibrinogen dRVVT Confirm Interp Factor V Activity POC ABG pH POC ABG pCO2 POC ABG pO2 ABG pO2 ABG HCO3 ABG Base Excess ABG Hemoglobin Oxyhemoglobin Sodium Potassium Chloride Carbon Dioxide BUN 87 H Creatinine 1.8 H Glucose 119 H POC Glucose 115 H Lactic Acid Calcium Phosphorus Magnesium Direct Bilirubin AST ALT Alkaline Phosphatase Lactate Dehydrogenase Troponin T C-Reactive Protein Total Protein Albumin Prealbumin Triglycerides Cholesterol LDL Cholesterol Direct HDL Cholesterol Urine pH Urine WBC (Auto) Urine Creatinine Urine Total Protein Fluid Total Protein Vancomycin Trough Rheumatoid Factor Complement C4 Miscellaneous Test Crossmatch 12/30/16 12/30/16 12/31/16 17:27 23:21 04:00 WBC RBC Hgb Hct MCV MCH MCHC RDW Plt Count Lymph % (Auto) [place] % (Auto) Lymph # [place] # Baso # Seg Neutrophils % Seg Neuts % (Manual) Lymphocytes % (Manual) Monocytes % (Manual) Eosinophils % (Manual) Basophils % (Manual) Nucleated RBC % Seg Neutrophils # Seg Neutrophils # Man Lymphocytes # (Manual) Monocytes # (Manual) Eosinophils # (Manual) Basophils # (Manual) PT INR Fibrinogen dRVVT Confirm Interp Factor V Activity POC ABG pH POC ABG pCO2 POC ABG pO2 ABG pO2 ABG HCO3 ABG Base Excess ABG Hemoglobin Oxyhemoglobin Sodium Potassium Chloride Carbon Dioxide BUN 59 H Creatinine Glucose 298 H POC Glucose 144 H 125 H Lactic Acid Calcium Phosphorus Magnesium Direct Bilirubin AST ALT Alkaline Phosphatase Lactate Dehydrogenase Troponin T C-Reactive Protein Total Protein Albumin Prealbumin Triglycerides Cholesterol LDL Cholesterol Direct HDL Cholesterol Urine pH Urine WBC (Auto) Urine Creatinine Urine Total Protein Fluid Total Protein Vancomycin Trough Rheumatoid Factor Complement C4 Miscellaneous Test Crossmatch 12/31/16 12/31/16 12/31/16 05:11 12:18 18:17 WBC RBC Hgb Hct MCV MCH MCHC RDW Plt Count Lymph % (Auto) [place] % (Auto) Lymph # [place] # Baso # Seg Neutrophils % Seg Neuts % (Manual) Lymphocytes % (Manual) Monocytes % (Manual) Eosinophils % (Manual) Basophils % (Manual) Nucleated RBC % Seg Neutrophils # Seg Neutrophils # Man Lymphocytes # (Manual) Monocytes # (Manual) Eosinophils # (Manual) Basophils # (Manual) PT INR Fibrinogen dRVVT Confirm Interp Factor V Activity POC ABG pH POC ABG pCO2 POC ABG pO2 ABG pO2 ABG HCO3 ABG Base Excess ABG Hemoglobin Oxyhemoglobin Sodium Potassium Chloride Carbon Dioxide BUN Creatinine Glucose POC Glucose 167 H 125 H 133 H Lactic Acid Calcium Phosphorus Magnesium Direct Bilirubin AST ALT Alkaline Phosphatase Lactate Dehydrogenase Troponin T C-Reactive Protein Total Protein Albumin Prealbumin Triglycerides Cholesterol LDL Cholesterol Direct HDL Cholesterol Urine pH Urine WBC (Auto) Urine Creatinine Urine Total Protein Fluid Total Protein Vancomycin Trough Rheumatoid Factor Complement C4 Miscellaneous Test Crossmatch 12/31/16 01/01/17 01/01/17 23:55 05:00 05:12 WBC RBC Hgb Hct MCV MCH MCHC RDW Plt Count Lymph % (Auto) [place] % (Auto) Lymph # [place] # Baso # Seg Neutrophils % Seg Neuts % (Manual) Lymphocytes % (Manual) Monocytes % (Manual) Eosinophils % (Manual) Basophils % (Manual) Nucleated RBC % Seg Neutrophils # Seg Neutrophils # Man Lymphocytes # (Manual) Monocytes # (Manual) Eosinophils # (Manual) Basophils # (Manual) PT INR Fibrinogen dRVVT Confirm Interp Factor V Activity POC ABG pH POC ABG pCO2 POC ABG pO2 ABG pO2 ABG HCO3 ABG Base Excess ABG Hemoglobin Oxyhemoglobin Sodium Potassium Chloride Carbon Dioxide BUN 76 H Creatinine 1.5 H Glucose 109 H POC Glucose 129 H 129 H Lactic Acid Calcium Phosphorus Magnesium Direct Bilirubin AST ALT Alkaline Phosphatase 536 H Lactate Dehydrogenase Troponin T C-Reactive Protein Total Protein Albumin 1.5 L Prealbumin Triglycerides Cholesterol LDL Cholesterol Direct HDL Cholesterol Urine pH Urine WBC (Auto) Urine Creatinine Urine Total Protein Fluid Total Protein Vancomycin Trough Rheumatoid Factor Complement C4 Miscellaneous Test Crossmatch 01/01/17 01/01/17 01/01/17 12:25 17:01 23:32 WBC RBC Hgb Hct MCV MCH MCHC RDW Plt Count Lymph % (Auto) [place] % (Auto) Lymph # [place] # Baso # Seg Neutrophils % Seg Neuts % (Manual) Lymphocytes % (Manual) Monocytes % (Manual) Eosinophils % (Manual) Basophils % (Manual) Nucleated RBC % Seg Neutrophils # Seg Neutrophils # Man Lymphocytes # (Manual) Monocytes # (Manual) Eosinophils # (Manual) Basophils # (Manual) PT INR Fibrinogen dRVVT Confirm Interp Factor V Activity POC ABG pH POC ABG pCO2 POC ABG pO2 ABG pO2 ABG HCO3 ABG Base Excess ABG Hemoglobin Oxyhemoglobin Sodium Potassium Chloride Carbon Dioxide BUN Creatinine Glucose POC Glucose 140 H 142 H 112 H Lactic Acid Calcium Phosphorus Magnesium Direct Bilirubin AST ALT Alkaline Phosphatase Lactate Dehydrogenase Troponin T C-Reactive Protein Total Protein Albumin Prealbumin Triglycerides Cholesterol LDL Cholesterol Direct HDL Cholesterol Urine pH Urine WBC (Auto) Urine Creatinine Urine Total Protein Fluid Total Protein Vancomycin Trough Rheumatoid Factor Complement C4 Miscellaneous Test Crossmatch 01/02/17 01/02/17 01/02/17 04:56 06:00 11:37 WBC RBC Hgb Hct MCV MCH MCHC RDW Plt Count Lymph % (Auto) [place] % (Auto) Lymph # [place] # Baso # Seg Neutrophils % Seg Neuts % (Manual) Lymphocytes % (Manual) Monocytes % (Manual) Eosinophils % (Manual) Basophils % (Manual) Nucleated RBC % Seg Neutrophils # Seg Neutrophils # Man Lymphocytes # (Manual) Monocytes # (Manual) Eosinophils # (Manual) Basophils # (Manual) PT INR Fibrinogen dRVVT Confirm Interp Factor V Activity POC ABG pH POC ABG pCO2 POC ABG pO2 ABG pO2 ABG HCO3 ABG Base Excess ABG Hemoglobin Oxyhemoglobin Sodium Potassium Chloride Carbon Dioxide BUN 88 H Creatinine 1.7 H Glucose 113 H POC Glucose 136 H 200 H Lactic Acid Calcium Phosphorus Magnesium Direct Bilirubin AST ALT Alkaline Phosphatase Lactate Dehydrogenase Troponin T C-Reactive Protein Total Protein Albumin Prealbumin Triglycerides Cholesterol LDL Cholesterol Direct HDL Cholesterol Urine pH Urine WBC (Auto) Urine Creatinine Urine Total Protein Fluid Total Protein Vancomycin Trough Rheumatoid Factor Complement C4 Miscellaneous Test Crossmatch 01/02/17 01/02/17 01/03/17 17:42 22:52 04:54 WBC RBC Hgb Hct MCV MCH MCHC RDW Plt Count Lymph % (Auto) [place] % (Auto) Lymph # [place] # Baso # Seg Neutrophils % Seg Neuts % (Manual) Lymphocytes % (Manual) Monocytes % (Manual) Eosinophils % (Manual) Basophils % (Manual) Nucleated RBC % Seg Neutrophils # Seg Neutrophils # Man Lymphocytes # (Manual) Monocytes # (Manual) Eosinophils # (Manual) Basophils # (Manual) PT INR Fibrinogen dRVVT Confirm Interp Factor V Activity POC ABG pH POC ABG pCO2 POC ABG pO2 ABG pO2 ABG HCO3 ABG Base Excess ABG Hemoglobin Oxyhemoglobin Sodium Potassium Chloride Carbon Dioxide BUN Creatinine Glucose POC Glucose 112 H 133 H 111 H Lactic Acid Calcium Phosphorus Magnesium Direct Bilirubin AST ALT Alkaline Phosphatase Lactate Dehydrogenase Troponin T C-Reactive Protein Total Protein Albumin Prealbumin Triglycerides Cholesterol LDL Cholesterol Direct HDL Cholesterol Urine pH Urine WBC (Auto) Urine Creatinine Urine Total Protein Fluid Total Protein Vancomycin Trough Rheumatoid Factor Complement C4 Miscellaneous Test Crossmatch 01/03/17 01/03/17 01/03/17 05:00 05:00 14:02 WBC 11.2 H RBC 2.56 L Hgb 7.2 L Hct 22.3 L MCV MCH MCHC RDW 17.3 H Plt Count Lymph % (Auto) [place] % (Auto) 10.0 H Lymph # [place] # 1.1 H Baso # Seg Neutrophils % 70.5 H Seg Neuts % (Manual) Lymphocytes % (Manual) Monocytes % (Manual) Eosinophils % (Manual) Basophils % (Manual) Nucleated RBC % Seg Neutrophils # 7.9 H Seg Neutrophils # Man Lymphocytes # (Manual) Monocytes # (Manual) Eosinophils # (Manual) Basophils # (Manual) PT INR Fibrinogen dRVVT Confirm Interp Factor V Activity POC ABG pH POC ABG pCO2 POC ABG pO2 ABG pO2 ABG HCO3 ABG Base Excess ABG Hemoglobin Oxyhemoglobin Sodium Potassium Chloride Carbon Dioxide BUN 60 H Creatinine 1.3 H Glucose 110 H POC Glucose 119 H Lactic Acid Calcium Phosphorus Magnesium Direct Bilirubin AST ALT Alkaline Phosphatase Lactate Dehydrogenase Troponin T C-Reactive Protein Total Protein Albumin Prealbumin Triglycerides Cholesterol LDL Cholesterol Direct HDL Cholesterol Urine pH Urine WBC (Auto) Urine Creatinine Urine Total Protein Fluid Total Protein Vancomycin Trough Rheumatoid Factor Complement C4 Miscellaneous Test Crossmatch 01/03/17 01/03/17 01/04/17 18:13 23:40 05:57 WBC RBC Hgb Hct MCV MCH MCHC RDW Plt Count Lymph % (Auto) [place] % (Auto) Lymph # [place] # Baso # Seg Neutrophils % Seg Neuts % (Manual) Lymphocytes % (Manual) Monocytes % (Manual) Eosinophils % (Manual) Basophils % (Manual) Nucleated RBC % Seg Neutrophils # Seg Neutrophils # Man Lymphocytes # (Manual) Monocytes # (Manual) Eosinophils # (Manual) Basophils # (Manual) PT INR Fibrinogen dRVVT Confirm Interp Factor V Activity POC ABG pH POC ABG pCO2 POC ABG pO2 ABG pO2 ABG HCO3 ABG Base Excess ABG Hemoglobin Oxyhemoglobin Sodium Potassium Chloride Carbon Dioxide BUN Creatinine Glucose POC Glucose 107 H 129 H 111 H Lactic Acid Calcium Phosphorus Magnesium Direct Bilirubin AST ALT Alkaline Phosphatase Lactate Dehydrogenase Troponin T C-Reactive Protein Total Protein Albumin Prealbumin Triglycerides Cholesterol LDL Cholesterol Direct HDL Cholesterol Urine pH Urine WBC (Auto) Urine Creatinine Urine Total Protein Fluid Total Protein Vancomycin Trough Rheumatoid Factor Complement C4 Miscellaneous Test Crossmatch 01/04/17 01/04/17 01/04/17 12:46 15:27 17:11 WBC RBC Hgb Hct MCV MCH MCHC RDW Plt Count Lymph % (Auto) [place] % (Auto) Lymph # [place] # Baso # Seg Neutrophils % Seg Neuts % (Manual) Lymphocytes % (Manual) Monocytes % (Manual) Eosinophils % (Manual) Basophils % (Manual) Nucleated RBC % Seg Neutrophils # Seg Neutrophils # Man Lymphocytes # (Manual) Monocytes # (Manual) Eosinophils # (Manual) Basophils # (Manual) PT INR Fibrinogen dRVVT Confirm Interp Factor V Activity POC ABG pH POC ABG pCO2 POC ABG pO2 ABG pO2 ABG HCO3 ABG Base Excess ABG Hemoglobin Oxyhemoglobin Sodium Potassium Chloride Carbon Dioxide BUN 43 H Creatinine Glucose 124 H POC Glucose 159 H 125 H Lactic Acid Calcium 8.0 L Phosphorus 2.10 L Magnesium Direct Bilirubin AST ALT Alkaline Phosphatase Lactate Dehydrogenase Troponin T C-Reactive Protein Total Protein Albumin Prealbumin Triglycerides Cholesterol LDL Cholesterol Direct HDL Cholesterol Urine pH Urine WBC (Auto) Urine Creatinine Urine Total Protein Fluid Total Protein Vancomycin Trough Rheumatoid Factor Complement C4 Miscellaneous Test Crossmatch 01/04/17 01/05/17 01/05/17 23:31 04:00 05:46 WBC RBC Hgb Hct MCV MCH MCHC RDW Plt Count Lymph % (Auto) [place] % (Auto) Lymph # [place] # Baso # Seg Neutrophils % Seg Neuts % (Manual) Lymphocytes % (Manual) Monocytes % (Manual) Eosinophils % (Manual) Basophils % (Manual) Nucleated RBC % Seg Neutrophils # Seg Neutrophils # Man Lymphocytes # (Manual) Monocytes # (Manual) Eosinophils # (Manual) Basophils # (Manual) PT INR Fibrinogen dRVVT Confirm Interp Factor V Activity POC ABG pH POC ABG pCO2 POC ABG pO2 ABG pO2 ABG HCO3 ABG Base Excess ABG Hemoglobin Oxyhemoglobin Sodium Potassium Chloride Carbon Dioxide BUN 52 H Creatinine 1.3 H Glucose 113 H POC Glucose 123 H 118 H Lactic Acid Calcium Phosphorus 2.40 L Magnesium Direct Bilirubin AST ALT Alkaline Phosphatase Lactate Dehydrogenase Troponin T C-Reactive Protein Total Protein Albumin Prealbumin Triglycerides Cholesterol LDL Cholesterol Direct HDL Cholesterol Urine pH Urine WBC (Auto) Urine Creatinine Urine Total Protein Fluid Total Protein Vancomycin Trough Rheumatoid Factor Complement C4 Miscellaneous Test Crossmatch 01/05/17 01/05/17 01/05/17 11:41 17:48 23:27 WBC RBC Hgb Hct MCV MCH MCHC RDW Plt Count Lymph % (Auto) [place] % (Auto) Lymph # [place] # Baso # Seg Neutrophils % Seg Neuts % (Manual) Lymphocytes % (Manual) Monocytes % (Manual) Eosinophils % (Manual) Basophils % (Manual) Nucleated RBC % Seg Neutrophils # Seg Neutrophils # Man Lymphocytes # (Manual) Monocytes # (Manual) Eosinophils # (Manual) Basophils # (Manual) PT INR Fibrinogen dRVVT Confirm Interp Factor V Activity POC ABG pH POC ABG pCO2 POC ABG pO2 ABG pO2 ABG HCO3 ABG Base Excess ABG Hemoglobin Oxyhemoglobin Sodium Potassium Chloride Carbon Dioxide BUN Creatinine Glucose POC Glucose 163 H 142 H 155 H Lactic Acid Calcium Phosphorus Magnesium Direct Bilirubin AST ALT Alkaline Phosphatase Lactate Dehydrogenase Troponin T C-Reactive Protein Total Protein Albumin Prealbumin Triglycerides Cholesterol LDL Cholesterol Direct HDL Cholesterol Urine pH Urine WBC (Auto) Urine Creatinine Urine Total Protein Fluid Total Protein Vancomycin Trough Rheumatoid Factor Complement C4 Miscellaneous Test Crossmatch 01/06/17 01/06/17 01/06/17 05:20 07:35 11:18 WBC RBC Hgb Hct MCV MCH MCHC RDW Plt Count Lymph % (Auto) [place] % (Auto) Lymph # [place] # Baso # Seg Neutrophils % Seg Neuts % (Manual) Lymphocytes % (Manual) Monocytes % (Manual) Eosinophils % (Manual) Basophils % (Manual) Nucleated RBC % Seg Neutrophils # Seg Neutrophils # Man Lymphocytes # (Manual) Monocytes # (Manual) Eosinophils # (Manual) Basophils # (Manual) PT INR Fibrinogen dRVVT Confirm Interp Factor V Activity POC ABG pH POC ABG pCO2 POC ABG pO2 ABG pO2 ABG HCO3 ABG Base Excess ABG Hemoglobin Oxyhemoglobin Sodium Potassium Chloride Carbon Dioxide BUN 74 H Creatinine 1.6 H Glucose 135 H POC Glucose 108 H 149 H Lactic Acid Calcium Phosphorus Magnesium Direct Bilirubin AST ALT Alkaline Phosphatase Lactate Dehydrogenase Troponin T C-Reactive Protein Total Protein Albumin Prealbumin Triglycerides Cholesterol LDL Cholesterol Direct HDL Cholesterol Urine pH Urine WBC (Auto) Urine Creatinine Urine Total Protein Fluid Total Protein Vancomycin Trough Rheumatoid Factor Complement C4 Miscellaneous Test Crossmatch 01/06/17 01/07/17 01/07/17 17:17 00:23 05:31 WBC RBC Hgb Hct MCV MCH MCHC RDW Plt Count Lymph % (Auto) [place] % (Auto) Lymph # [place] # Baso # Seg Neutrophils % Seg Neuts % (Manual) Lymphocytes % (Manual) Monocytes % (Manual) Eosinophils % (Manual) Basophils % (Manual) Nucleated RBC % Seg Neutrophils # Seg Neutrophils # Man Lymphocytes # (Manual) Monocytes # (Manual) Eosinophils # (Manual) Basophils # (Manual) PT INR Fibrinogen dRVVT Confirm Interp Factor V Activity POC ABG pH POC ABG pCO2 POC ABG pO2 ABG pO2 ABG HCO3 ABG Base Excess ABG Hemoglobin Oxyhemoglobin Sodium Potassium Chloride Carbon Dioxide BUN Creatinine Glucose POC Glucose 146 H 165 H 153 H Lactic Acid Calcium Phosphorus Magnesium Direct Bilirubin AST ALT Alkaline Phosphatase Lactate Dehydrogenase Troponin T C-Reactive Protein Total Protein Albumin Prealbumin Triglycerides Cholesterol LDL Cholesterol Direct HDL Cholesterol Urine pH Urine WBC (Auto) Urine Creatinine Urine Total Protein Fluid Total Protein Vancomycin Trough Rheumatoid Factor Complement C4 Miscellaneous Test Crossmatch 01/07/17 01/07/17 01/07/17 06:00 11:39 17:11 WBC RBC Hgb Hct MCV MCH MCHC RDW Plt Count Lymph % (Auto) [place] % (Auto) Lymph # [place] # Baso # Seg Neutrophils % Seg Neuts % (Manual) Lymphocytes % (Manual) Monocytes % (Manual) Eosinophils % (Manual) Basophils % (Manual) Nucleated RBC % Seg Neutrophils # Seg Neutrophils # Man Lymphocytes # (Manual) Monocytes # (Manual) Eosinophils # (Manual) Basophils # (Manual) PT INR Fibrinogen dRVVT Confirm Interp Factor V Activity POC ABG pH POC ABG pCO2 POC ABG pO2 ABG pO2 ABG HCO3 ABG Base Excess ABG Hemoglobin Oxyhemoglobin Sodium Potassium Chloride Carbon Dioxide BUN 42 H Creatinine Glucose 175 H POC Glucose 163 H 163 H Lactic Acid Calcium Phosphorus 2.40 L D Magnesium Direct Bilirubin AST ALT Alkaline Phosphatase Lactate Dehydrogenase Troponin T C-Reactive Protein Total Protein Albumin Prealbumin Triglycerides Cholesterol LDL Cholesterol Direct HDL Cholesterol Urine pH Urine WBC (Auto) Urine Creatinine Urine Total Protein Fluid Total Protein Vancomycin Trough Rheumatoid Factor Complement C4 Miscellaneous Test Crossmatch 01/07/17 01/08/17 01/08/17 23:40 05:00 05:00 WBC 27.4 H RBC 2.27 L Hgb 6.1 L Hct 20.4 L MCV MCH 27 L MCHC RDW 17.8 H Plt Count Lymph % (Auto) [place] % (Auto) Lymph # [place] # Baso # Seg Neutrophils % Seg Neuts % (Manual) Lymphocytes % (Manual) Monocytes % (Manual) Eosinophils % (Manual) Basophils % (Manual) Nucleated RBC % Seg Neutrophils # Seg Neutrophils # Man Lymphocytes # (Manual) Monocytes # (Manual) Eosinophils # (Manual) Basophils # (Manual) PT INR Fibrinogen dRVVT Confirm Interp Factor V Activity POC ABG pH POC ABG pCO2 POC ABG pO2 ABG pO2 ABG HCO3 ABG Base Excess ABG Hemoglobin Oxyhemoglobin Sodium Potassium Chloride Carbon Dioxide 16 L D BUN 62 H Creatinine 1.6 H D Glucose 103 H POC Glucose 135 H Lactic Acid Calcium Phosphorus Magnesium Direct Bilirubin AST ALT Alkaline Phosphatase Lactate Dehydrogenase Troponin T C-Reactive Protein Total Protein Albumin Prealbumin Triglycerides Cholesterol LDL Cholesterol Direct HDL Cholesterol Urine pH Urine WBC (Auto) Urine Creatinine Urine Total Protein Fluid Total Protein Vancomycin Trough Rheumatoid Factor Complement C4 Miscellaneous Test Crossmatch 01/08/17 01/08/17 01/08/17 05:25 10:37 10:37 WBC RBC Hgb Hct MCV MCH MCHC RDW Plt Count Lymph % (Auto) [place] % (Auto) Lymph # [place] # Baso # Seg Neutrophils % Seg Neuts % (Manual) Lymphocytes % (Manual) Monocytes % (Manual) Eosinophils % (Manual) Basophils % (Manual) Nucleated RBC % Seg Neutrophils # Seg Neutrophils # Man Lymphocytes # (Manual) Monocytes # (Manual) Eosinophils # (Manual) Basophils # (Manual) PT INR Fibrinogen dRVVT Confirm Interp Factor V Activity POC ABG pH POC ABG pCO2 POC ABG pO2 ABG pO2 ABG HCO3 ABG Base Excess ABG Hemoglobin Oxyhemoglobin Sodium Potassium Chloride Carbon Dioxide BUN Creatinine Glucose POC Glucose 106 H Lactic Acid Calcium Phosphorus Magnesium Direct Bilirubin AST ALT Alkaline Phosphatase Lactate Dehydrogenase Troponin T C-Reactive Protein 24.40 H Total Protein Albumin Prealbumin Triglycerides Cholesterol LDL Cholesterol Direct HDL Cholesterol Urine pH Urine WBC (Auto) Urine Creatinine Urine Total Protein Fluid Total Protein Vancomycin Trough Rheumatoid Factor Complement C4 Miscellaneous Test Crossmatch See Detail 01/08/17 01/08/17 01/08/17 10:37 11:33 15:15 WBC RBC Hgb Hct MCV MCH MCHC RDW Plt Count Lymph % (Auto) [place] % (Auto) Lymph # [place] # Baso # Seg Neutrophils % Seg Neuts % (Manual) Lymphocytes % (Manual) Monocytes % (Manual) Eosinophils % (Manual) Basophils % (Manual) Nucleated RBC % Seg Neutrophils # Seg Neutrophils # Man Lymphocytes # (Manual) Monocytes # (Manual) Eosinophils # (Manual) Basophils # (Manual) PT INR Fibrinogen dRVVT Confirm Interp Factor V Activity POC ABG pH POC ABG pCO2 POC ABG pO2 ABG pO2 ABG HCO3 ABG Base Excess ABG Hemoglobin Oxyhemoglobin Sodium Potassium Chloride Carbon Dioxide BUN Creatinine Glucose POC Glucose 157 H Lactic Acid 9.70 H* 9.10 H* Calcium Phosphorus Magnesium Direct Bilirubin AST ALT Alkaline Phosphatase Lactate Dehydrogenase Troponin T C-Reactive Protein Total Protein Albumin Prealbumin Triglycerides Cholesterol LDL Cholesterol Direct HDL Cholesterol Urine pH Urine WBC (Auto) Urine Creatinine Urine Total Protein Fluid Total Protein Vancomycin Trough Rheumatoid Factor Complement C4 Miscellaneous Test Crossmatch 01/08/17 01/08/17 01/09/17 17:19 23:12 04:40 WBC RBC Hgb Hct MCV MCH MCHC RDW Plt Count Lymph % (Auto) [place] % (Auto) Lymph # [place] # Baso # Seg Neutrophils % Seg Neuts % (Manual) Lymphocytes % (Manual) Monocytes % (Manual) Eosinophils % (Manual) Basophils % (Manual) Nucleated RBC % Seg Neutrophils # Seg Neutrophils # Man Lymphocytes # (Manual) Monocytes # (Manual) Eosinophils # (Manual) Basophils # (Manual) PT INR Fibrinogen dRVVT Confirm Interp Factor V Activity POC ABG pH POC ABG pCO2 POC ABG pO2 ABG pO2 ABG HCO3 ABG Base Excess ABG Hemoglobin Oxyhemoglobin Sodium 147 H Potassium Chloride Carbon Dioxide BUN 82 H Creatinine 1.8 H Glucose 137 H POC Glucose 164 H 157 H Lactic Acid Calcium Phosphorus Magnesium Direct Bilirubin AST ALT Alkaline Phosphatase Lactate Dehydrogenase Troponin T C-Reactive Protein Total Protein Albumin Prealbumin Triglycerides Cholesterol LDL Cholesterol Direct HDL Cholesterol Urine pH Urine WBC (Auto) Urine Creatinine Urine Total Protein Fluid Total Protein Vancomycin Trough Rheumatoid Factor Complement C4 Miscellaneous Test Crossmatch 01/09/17 01/09/17 01/09/17 05:42 08:22 10:57 WBC RBC Hgb Hct MCV MCH MCHC RDW Plt Count Lymph % (Auto) [place] % (Auto) Lymph # [place] # Baso # Seg Neutrophils % Seg Neuts % (Manual) Lymphocytes % (Manual) Monocytes % (Manual) Eosinophils % (Manual) Basophils % (Manual) Nucleated RBC % Seg Neutrophils # Seg Neutrophils # Man Lymphocytes # (Manual) Monocytes # (Manual) Eosinophils # (Manual) Basophils # (Manual) PT INR Fibrinogen dRVVT Confirm Interp Factor V Activity POC ABG pH POC ABG pCO2 POC ABG pO2 ABG pO2 ABG HCO3 ABG Base Excess ABG Hemoglobin Oxyhemoglobin Sodium Potassium Chloride Carbon Dioxide BUN Creatinine Glucose POC Glucose 156 H 122 H Lactic Acid 2.30 H* Calcium Phosphorus Magnesium Direct Bilirubin AST ALT Alkaline Phosphatase Lactate Dehydrogenase Troponin T C-Reactive Protein Total Protein Albumin Prealbumin Triglycerides Cholesterol LDL Cholesterol Direct HDL Cholesterol Urine pH Urine WBC (Auto) Urine Creatinine Urine Total Protein Fluid Total Protein Vancomycin Trough Rheumatoid Factor Complement C4 Miscellaneous Test Crossmatch 01/09/17 01/09/17 01/09/17 13:30 17:14 18:45 WBC RBC Hgb Hct MCV MCH MCHC RDW Plt Count Lymph % (Auto) [place] % (Auto) Lymph # [place] # Baso # Seg Neutrophils % Seg Neuts % (Manual) Lymphocytes % (Manual) Monocytes % (Manual) Eosinophils % (Manual) Basophils % (Manual) Nucleated RBC % Seg Neutrophils # Seg Neutrophils # Man Lymphocytes # (Manual) Monocytes # (Manual) Eosinophils # (Manual) Basophils # (Manual) PT INR Fibrinogen dRVVT Confirm Interp Factor V Activity POC ABG pH POC ABG pCO2 POC ABG pO2 ABG pO2 ABG HCO3 ABG Base Excess ABG Hemoglobin Oxyhemoglobin Sodium Potassium Chloride Carbon Dioxide BUN Creatinine Glucose POC Glucose 127 H Lactic Acid Calcium Phosphorus Magnesium Direct Bilirubin AST ALT Alkaline Phosphatase Lactate Dehydrogenase Troponin T C-Reactive Protein 24.70 H Total Protein Albumin Prealbumin Triglycerides Cholesterol LDL Cholesterol Direct HDL Cholesterol Urine pH Urine WBC (Auto) Urine Creatinine Urine Total Protein Fluid Total Protein Vancomycin Trough Rheumatoid Factor Complement C4 Miscellaneous Test Flexitest 1 H Crossmatch 01/10/17 01/10/17 01/10/17 01:21 04:00 04:00 WBC 18.1 H RBC 3.22 L Hgb 8.8 L Hct 27.0 L D MCV MCH 27 L MCHC RDW 17.0 H Plt Count Lymph % (Auto) [place] % (Auto) Lymph # [place] # Baso # Seg Neutrophils % Seg Neuts % (Manual) Lymphocytes % (Manual) Monocytes % (Manual) Eosinophils % (Manual) Basophils % (Manual) Nucleated RBC % Seg Neutrophils # Seg Neutrophils # Man Lymphocytes # (Manual) Monocytes # (Manual) Eosinophils # (Manual) Basophils # (Manual) PT INR Fibrinogen dRVVT Confirm Interp Factor V Activity POC ABG pH POC ABG pCO2 POC ABG pO2 ABG pO2 ABG HCO3 ABG Base Excess ABG Hemoglobin Oxyhemoglobin Sodium Potassium Chloride Carbon Dioxide BUN 59 H Creatinine 1.3 H Glucose 122 H POC Glucose 160 H Lactic Acid Calcium Phosphorus Magnesium Direct Bilirubin AST ALT Alkaline Phosphatase Lactate Dehydrogenase Troponin T C-Reactive Protein Total Protein Albumin Prealbumin Triglycerides Cholesterol LDL Cholesterol Direct HDL Cholesterol Urine pH Urine WBC (Auto) Urine Creatinine Urine Total Protein Fluid Total Protein Vancomycin Trough Rheumatoid Factor Complement C4 Miscellaneous Test Crossmatch 01/10/17 01/10/17 01/10/17 05:36 12:14 17:55 WBC RBC Hgb Hct MCV MCH MCHC RDW Plt Count Lymph % (Auto) [place] % (Auto) Lymph # [place] # Baso # Seg Neutrophils % Seg Neuts % (Manual) Lymphocytes % (Manual) Monocytes % (Manual) Eosinophils % (Manual) Basophils % (Manual) Nucleated RBC % Seg Neutrophils # Seg Neutrophils # Man Lymphocytes # (Manual) Monocytes # (Manual) Eosinophils # (Manual) Basophils # (Manual) PT INR Fibrinogen dRVVT Confirm Interp Factor V Activity POC ABG pH POC ABG pCO2 POC ABG pO2 ABG pO2 ABG HCO3 ABG Base Excess ABG Hemoglobin Oxyhemoglobin Sodium Potassium Chloride Carbon Dioxide BUN Creatinine Glucose POC Glucose 163 H 120 H 144 H Lactic Acid Calcium Phosphorus Magnesium Direct Bilirubin AST ALT Alkaline Phosphatase Lactate Dehydrogenase Troponin T C-Reactive Protein Total Protein Albumin Prealbumin Triglycerides Cholesterol LDL Cholesterol Direct HDL Cholesterol Urine pH Urine WBC (Auto) Urine Creatinine Urine Total Protein Fluid Total Protein Vancomycin Trough Rheumatoid Factor Complement C4 Miscellaneous Test Crossmatch 01/11/17 01/11/17 01/11/17 00:09 04:00 04:00 WBC 15.8 H RBC 3.04 L Hgb 8.2 L Hct 25.5 L MCV MCH 27 L MCHC RDW 17.3 H Plt Count Lymph % (Auto) [place] % (Auto) Lymph # [place] # Baso # Seg Neutrophils % Seg Neuts % (Manual) Lymphocytes % (Manual) Monocytes % (Manual) Eosinophils % (Manual) Basophils % (Manual) Nucleated RBC % Seg Neutrophils # Seg Neutrophils # Man Lymphocytes # (Manual) Monocytes # (Manual) Eosinophils # (Manual) Basophils # (Manual) PT INR Fibrinogen dRVVT Confirm Interp Factor V Activity POC ABG pH POC ABG pCO2 POC ABG pO2 ABG pO2 ABG HCO3 ABG Base Excess ABG Hemoglobin Oxyhemoglobin Sodium Potassium Chloride Carbon Dioxide BUN 78 H Creatinine 1.6 H Glucose 109 H POC Glucose 122 H Lactic Acid Calcium Phosphorus Magnesium Direct Bilirubin AST ALT Alkaline Phosphatase Lactate Dehydrogenase Troponin T C-Reactive Protein Total Protein Albumin Prealbumin Triglycerides Cholesterol LDL Cholesterol Direct HDL Cholesterol Urine pH Urine WBC (Auto) Urine Creatinine Urine Total Protein Fluid Total Protein Vancomycin Trough Rheumatoid Factor Complement C4 Miscellaneous Test Crossmatch 01/11/17 01/11/17 01/11/17 12:46 18:23 23:42 WBC RBC Hgb Hct MCV MCH MCHC RDW Plt Count Lymph % (Auto) [place] % (Auto) Lymph # [place] # Baso # Seg Neutrophils % Seg Neuts % (Manual) Lymphocytes % (Manual) Monocytes % (Manual) Eosinophils % (Manual) Basophils % (Manual) Nucleated RBC % Seg Neutrophils # Seg Neutrophils # Man Lymphocytes # (Manual) Monocytes # (Manual) Eosinophils # (Manual) Basophils # (Manual) PT INR Fibrinogen dRVVT Confirm Interp Factor V Activity POC ABG pH POC ABG pCO2 POC ABG pO2 ABG pO2 ABG HCO3 ABG Base Excess ABG Hemoglobin Oxyhemoglobin Sodium Potassium Chloride Carbon Dioxide BUN Creatinine Glucose POC Glucose 148 H 125 H 124 H Lactic Acid Calcium Phosphorus Magnesium Direct Bilirubin AST ALT Alkaline Phosphatase Lactate Dehydrogenase Troponin T C-Reactive Protein Total Protein Albumin Prealbumin Triglycerides Cholesterol LDL Cholesterol Direct HDL Cholesterol Urine pH Urine WBC (Auto) Urine Creatinine Urine Total Protein Fluid Total Protein Vancomycin Trough Rheumatoid Factor Complement C4 Miscellaneous Test Crossmatch 01/12/17 01/12/17 01/12/17 04:30 04:30 05:47 WBC 15.8 H RBC 3.31 L Hgb 8.9 L Hct 27.9 L MCV MCH 27 L MCHC RDW 17.4 H Plt Count Lymph % (Auto) [place] % (Auto) Lymph # [place] # Baso # Seg Neutrophils % Seg Neuts % (Manual) Lymphocytes % (Manual) Monocytes % (Manual) Eosinophils % (Manual) Basophils % (Manual) Nucleated RBC % Seg Neutrophils # Seg Neutrophils # Man Lymphocytes # (Manual) Monocytes # (Manual) Eosinophils # (Manual) Basophils # (Manual) PT INR Fibrinogen dRVVT Confirm Interp Factor V Activity POC ABG pH POC ABG pCO2 POC ABG pO2 ABG pO2 ABG HCO3 ABG Base Excess ABG Hemoglobin Oxyhemoglobin Sodium Potassium Chloride Carbon Dioxide BUN 57 H Creatinine Glucose 121 H POC Glucose 110 H Lactic Acid Calcium Phosphorus 2.10 L Magnesium Direct Bilirubin AST ALT Alkaline Phosphatase Lactate Dehydrogenase Troponin T C-Reactive Protein Total Protein Albumin Prealbumin Triglycerides Cholesterol LDL Cholesterol Direct HDL Cholesterol Urine pH Urine WBC (Auto) Urine Creatinine Urine Total Protein Fluid Total Protein Vancomycin Trough Rheumatoid Factor Complement C4 Miscellaneous Test Crossmatch 01/12/17 01/12/17 01/12/17 11:35 17:45 23:14 WBC RBC Hgb Hct MCV MCH MCHC RDW Plt Count Lymph % (Auto) [place] % (Auto) Lymph # [place] # Baso # Seg Neutrophils % Seg Neuts % (Manual) Lymphocytes % (Manual) Monocytes % (Manual) Eosinophils % (Manual) Basophils % (Manual) Nucleated RBC % Seg Neutrophils # Seg Neutrophils # Man Lymphocytes # (Manual) Monocytes # (Manual) Eosinophils # (Manual) Basophils # (Manual) PT INR Fibrinogen dRVVT Confirm Interp Factor V Activity POC ABG pH POC ABG pCO2 POC ABG pO2 ABG pO2 ABG HCO3 ABG Base Excess ABG Hemoglobin Oxyhemoglobin Sodium Potassium Chloride Carbon Dioxide BUN Creatinine Glucose POC Glucose 146 H 117 H 123 H Lactic Acid Calcium Phosphorus Magnesium Direct Bilirubin AST ALT Alkaline Phosphatase Lactate Dehydrogenase Troponin T C-Reactive Protein Total Protein Albumin Prealbumin Triglycerides Cholesterol LDL Cholesterol Direct HDL Cholesterol Urine pH Urine WBC (Auto) Urine Creatinine Urine Total Protein Fluid Total Protein Vancomycin Trough Rheumatoid Factor Complement C4 Miscellaneous Test Crossmatch 01/13/17 01/13/17 01/13/17 05:32 06:00 12:10 WBC RBC Hgb Hct MCV MCH MCHC RDW Plt Count Lymph % (Auto) [place] % (Auto) Lymph # [place] # Baso # Seg Neutrophils % Seg Neuts % (Manual) Lymphocytes % (Manual) Monocytes % (Manual) Eosinophils % (Manual) Basophils % (Manual) Nucleated RBC % Seg Neutrophils # Seg Neutrophils # Man Lymphocytes # (Manual) Monocytes # (Manual) Eosinophils # (Manual) Basophils # (Manual) PT INR Fibrinogen dRVVT Confirm Interp Factor V Activity POC ABG pH POC ABG pCO2 POC ABG pO2 ABG pO2 ABG HCO3 ABG Base Excess ABG Hemoglobin Oxyhemoglobin Sodium Potassium Chloride Carbon Dioxide BUN 80 H Creatinine 1.4 H Glucose 106 H POC Glucose 106 H Lactic Acid Calcium Phosphorus Magnesium Direct Bilirubin AST ALT Alkaline Phosphatase Lactate Dehydrogenase Troponin T C-Reactive Protein Total Protein Albumin Prealbumin Triglycerides Cholesterol LDL Cholesterol Direct HDL Cholesterol Urine pH Urine WBC (Auto) Urine Creatinine Urine Total Protein Fluid Total Protein 3.0 L Vancomycin Trough Rheumatoid Factor Complement C4 Miscellaneous Test Crossmatch 01/13/17 01/13/17 01/13/17 12:17 15:50 17:30 WBC RBC Hgb Hct MCV MCH MCHC RDW Plt Count Lymph % (Auto) [place] % (Auto) Lymph # [place] # Baso # Seg Neutrophils % Seg Neuts % (Manual) Lymphocytes % (Manual) Monocytes % (Manual) Eosinophils % (Manual) Basophils % (Manual) Nucleated RBC % Seg Neutrophils # Seg Neutrophils # Man Lymphocytes # (Manual) Monocytes # (Manual) Eosinophils # (Manual) Basophils # (Manual) PT 15.4 H INR 1.16 H Fibrinogen dRVVT Confirm Interp Factor V Activity POC ABG pH POC ABG pCO2 POC ABG pO2 ABG pO2 ABG HCO3 ABG Base Excess ABG Hemoglobin Oxyhemoglobin Sodium Potassium Chloride Carbon Dioxide BUN Creatinine Glucose POC Glucose 168 H 110 H Lactic Acid Calcium Phosphorus Magnesium Direct Bilirubin AST ALT Alkaline Phosphatase Lactate Dehydrogenase Troponin T C-Reactive Protein Total Protein Albumin Prealbumin Triglycerides Cholesterol LDL Cholesterol Direct HDL Cholesterol Urine pH Urine WBC (Auto) Urine Creatinine Urine Total Protein Fluid Total Protein Vancomycin Trough Rheumatoid Factor Complement C4 Miscellaneous Test Crossmatch 01/13/17 01/14/17 01/14/17 23:42 05:24 05:30 WBC RBC Hgb Hct MCV MCH MCHC RDW Plt Count Lymph % (Auto) [place] % (Auto) Lymph # [place] # Baso # Seg Neutrophils % Seg Neuts % (Manual) Lymphocytes % (Manual) Monocytes % (Manual) Eosinophils % (Manual) Basophils % (Manual) Nucleated RBC % Seg Neutrophils # Seg Neutrophils # Man Lymphocytes # (Manual) Monocytes # (Manual) Eosinophils # (Manual) Basophils # (Manual) PT INR Fibrinogen dRVVT Confirm Interp Factor V Activity POC ABG pH POC ABG pCO2 POC ABG pO2 ABG pO2 ABG HCO3 ABG Base Excess ABG Hemoglobin Oxyhemoglobin Sodium Potassium Chloride Carbon Dioxide BUN 58 H Creatinine Glucose 114 H POC Glucose 155 H 121 H Lactic Acid Calcium Phosphorus Magnesium Direct Bilirubin AST ALT Alkaline Phosphatase Lactate Dehydrogenase Troponin T C-Reactive Protein Total Protein Albumin Prealbumin Triglycerides Cholesterol LDL Cholesterol Direct HDL Cholesterol Urine pH Urine WBC (Auto) Urine Creatinine Urine Total Protein Fluid Total Protein Vancomycin Trough Rheumatoid Factor Complement C4 Miscellaneous Test Crossmatch 01/14/17 01/14/17 01/15/17 12:48 17:36 00:15 WBC RBC Hgb Hct MCV MCH MCHC RDW Plt Count Lymph % (Auto) [place] % (Auto) Lymph # [place] # Baso # Seg Neutrophils % Seg Neuts % (Manual) Lymphocytes % (Manual) Monocytes % (Manual) Eosinophils % (Manual) Basophils % (Manual) Nucleated RBC % Seg Neutrophils # Seg Neutrophils # Man Lymphocytes # (Manual) Monocytes # (Manual) Eosinophils # (Manual) Basophils # (Manual) PT INR Fibrinogen dRVVT Confirm Interp Factor V Activity POC ABG pH POC ABG pCO2 POC ABG pO2 ABG pO2 ABG HCO3 ABG Base Excess ABG Hemoglobin Oxyhemoglobin Sodium Potassium Chloride Carbon Dioxide BUN Creatinine Glucose POC Glucose 130 H 135 H 132 H Lactic Acid Calcium Phosphorus Magnesium Direct Bilirubin AST ALT Alkaline Phosphatase Lactate Dehydrogenase Troponin T C-Reactive Protein Total Protein Albumin Prealbumin Triglycerides Cholesterol LDL Cholesterol Direct HDL Cholesterol Urine pH Urine WBC (Auto) Urine Creatinine Urine Total Protein Fluid Total Protein Vancomycin Trough Rheumatoid Factor Complement C4 Miscellaneous Test Crossmatch 01/15/17 01/15/17 01/15/17 05:01 11:55 12:45 WBC 16.2 H RBC 3.00 L Hgb 8.1 L Hct 25.4 L MCV MCH 27 L MCHC RDW 17.6 H Plt Count Lymph % (Auto) 11.7 L [place] % (Auto) 7.8 H Lymph # [place] # 1.3 H Baso # Seg Neutrophils % 80.1 H Seg Neuts % (Manual) Lymphocytes % (Manual) Monocytes % (Manual) Eosinophils % (Manual) Basophils % (Manual) Nucleated RBC % Seg Neutrophils # 13.0 H Seg Neutrophils # Man Lymphocytes # (Manual) Monocytes # (Manual) Eosinophils # (Manual) Basophils # (Manual) PT INR Fibrinogen dRVVT Confirm Interp Factor V Activity POC ABG pH POC ABG pCO2 POC ABG pO2 ABG pO2 ABG HCO3 ABG Base Excess ABG Hemoglobin Oxyhemoglobin Sodium Potassium Chloride Carbon Dioxide BUN Creatinine Glucose POC Glucose 126 H 125 H Lactic Acid Calcium Phosphorus Magnesium Direct Bilirubin AST ALT Alkaline Phosphatase Lactate Dehydrogenase Troponin T C-Reactive Protein Total Protein Albumin Prealbumin Triglycerides Cholesterol LDL Cholesterol Direct HDL Cholesterol Urine pH Urine WBC (Auto) Urine Creatinine Urine Total Protein Fluid Total Protein Vancomycin Trough Rheumatoid Factor Complement C4 Miscellaneous Test Crossmatch 01/15/17 01/15/17 01/15/17 12:45 17:31 23:39 WBC RBC Hgb Hct MCV MCH MCHC RDW Plt Count Lymph % (Auto) [place] % (Auto) Lymph # [place] # Baso # Seg Neutrophils % Seg Neuts % (Manual) Lymphocytes % (Manual) Monocytes % (Manual) Eosinophils % (Manual) Basophils % (Manual) Nucleated RBC % Seg Neutrophils # Seg Neutrophils # Man Lymphocytes # (Manual) Monocytes # (Manual) Eosinophils # (Manual) Basophils # (Manual) PT INR Fibrinogen dRVVT Confirm Interp Factor V Activity POC ABG pH POC ABG pCO2 POC ABG pO2 ABG pO2 ABG HCO3 ABG Base Excess ABG Hemoglobin Oxyhemoglobin Sodium 136 L Potassium Chloride Carbon Dioxide BUN 87 H Creatinine 1.7 H Glucose 108 H POC Glucose 129 H 112 H Lactic Acid Calcium Phosphorus Magnesium Direct Bilirubin AST ALT Alkaline Phosphatase Lactate Dehydrogenase Troponin T C-Reactive Protein Total Protein Albumin Prealbumin Triglycerides Cholesterol LDL Cholesterol Direct HDL Cholesterol Urine pH Urine WBC (Auto) Urine Creatinine Urine Total Protein Fluid Total Protein Vancomycin Trough Rheumatoid Factor Complement C4 Miscellaneous Test Crossmatch 01/16/17 01/16/17 01/16/17 05:23 11:42 12:32 WBC RBC Hgb Hct MCV MCH MCHC RDW Plt Count Lymph % (Auto) [place] % (Auto) Lymph # [place] # Baso # Seg Neutrophils % Seg Neuts % (Manual) Lymphocytes % (Manual) Monocytes % (Manual) Eosinophils % (Manual) Basophils % (Manual) Nucleated RBC % Seg Neutrophils # Seg Neutrophils # Man Lymphocytes # (Manual) Monocytes # (Manual) Eosinophils # (Manual) Basophils # (Manual) PT INR Fibrinogen dRVVT Confirm Interp Factor V Activity POC ABG pH 7.499 H POC ABG pCO2 30.9 L POC ABG pO2 51 L ABG pO2 ABG HCO3 ABG Base Excess ABG Hemoglobin Oxyhemoglobin Sodium Potassium Chloride Carbon Dioxide BUN Creatinine Glucose POC Glucose 118 H 133 H Lactic Acid Calcium Phosphorus Magnesium Direct Bilirubin AST ALT Alkaline Phosphatase Lactate Dehydrogenase Troponin T C-Reactive Protein Total Protein Albumin Prealbumin Triglycerides Cholesterol LDL Cholesterol Direct HDL Cholesterol Urine pH Urine WBC (Auto) Urine Creatinine Urine Total Protein Fluid Total Protein Vancomycin Trough Rheumatoid Factor Complement C4 Miscellaneous Test Crossmatch 01/16/17 01/16/17 01/16/17 17:52 23:57 Unknown WBC RBC Hgb Hct MCV MCH MCHC RDW Plt Count Lymph % (Auto) [place] % (Auto) Lymph # [place] # Baso # Seg Neutrophils % Seg Neuts % (Manual) Lymphocytes % (Manual) Monocytes % (Manual) Eosinophils % (Manual) Basophils % (Manual) Nucleated RBC % Seg Neutrophils # Seg Neutrophils # Man Lymphocytes # (Manual) Monocytes # (Manual) Eosinophils # (Manual) Basophils # (Manual) PT INR Fibrinogen dRVVT Confirm Interp Factor V Activity POC ABG pH POC ABG pCO2 POC ABG pO2 ABG pO2 ABG HCO3 ABG Base Excess ABG Hemoglobin Oxyhemoglobin Sodium 135 L Potassium Chloride Carbon Dioxide BUN 101 H Creatinine 1.8 H Glucose 117 H POC Glucose 130 H 143 H Lactic Acid Calcium Phosphorus 5.80 H Magnesium Direct Bilirubin AST ALT Alkaline Phosphatase Lactate Dehydrogenase Troponin T C-Reactive Protein Total Protein Albumin Prealbumin Triglycerides Cholesterol LDL Cholesterol Direct HDL Cholesterol Urine pH Urine WBC (Auto) Urine Creatinine Urine Total Protein Fluid Total Protein Vancomycin Trough Rheumatoid Factor Complement C4 Miscellaneous Test Crossmatch 01/17/17 01/17/17 01/17/17 05:30 05:46 11:49 WBC RBC Hgb Hct MCV MCH MCHC RDW Plt Count Lymph % (Auto) [place] % (Auto) Lymph # [place] # Baso # Seg Neutrophils % Seg Neuts % (Manual) Lymphocytes % (Manual) Monocytes % (Manual) Eosinophils % (Manual) Basophils % (Manual) Nucleated RBC % Seg Neutrophils # Seg Neutrophils # Man Lymphocytes # (Manual) Monocytes # (Manual) Eosinophils # (Manual) Basophils # (Manual) PT INR Fibrinogen dRVVT Confirm Interp Factor V Activity POC ABG pH POC ABG pCO2 POC ABG pO2 ABG pO2 ABG HCO3 ABG Base Excess ABG Hemoglobin Oxyhemoglobin Sodium 134 L Potassium Chloride 95.8 L Carbon Dioxide BUN 66 H Creatinine 1.3 H Glucose 138 H POC Glucose 147 H 124 H Lactic Acid Calcium Phosphorus Magnesium Direct Bilirubin AST ALT Alkaline Phosphatase 254 H Lactate Dehydrogenase Troponin T C-Reactive Protein Total Protein Albumin 1.3 L Prealbumin Triglycerides Cholesterol LDL Cholesterol Direct HDL Cholesterol Urine pH Urine WBC (Auto) Urine Creatinine Urine Total Protein Fluid Total Protein Vancomycin Trough Rheumatoid Factor Complement C4 Miscellaneous Test Crossmatch 01/17/17 01/17/17 01/18/17 17:30 23:41 05:15 WBC RBC Hgb Hct MCV MCH MCHC RDW Plt Count Lymph % (Auto) [place] % (Auto) Lymph # [place] # Baso # Seg Neutrophils % Seg Neuts % (Manual) Lymphocytes % (Manual) Monocytes % (Manual) Eosinophils % (Manual) Basophils % (Manual) Nucleated RBC % Seg Neutrophils # Seg Neutrophils # Man Lymphocytes # (Manual) Monocytes # (Manual) Eosinophils # (Manual) Basophils # (Manual) PT INR Fibrinogen dRVVT Confirm Interp Factor V Activity POC ABG pH POC ABG pCO2 POC ABG pO2 ABG pO2 ABG HCO3 ABG Base Excess ABG Hemoglobin Oxyhemoglobin Sodium Potassium Chloride Carbon Dioxide BUN 89 H Creatinine 1.7 H Glucose 118 H POC Glucose 137 H 119 H Lactic Acid Calcium Phosphorus Magnesium Direct Bilirubin AST ALT Alkaline Phosphatase Lactate Dehydrogenase Troponin T C-Reactive Protein Total Protein Albumin Prealbumin Triglycerides Cholesterol LDL Cholesterol Direct HDL Cholesterol Urine pH Urine WBC (Auto) Urine Creatinine Urine Total Protein Fluid Total Protein Vancomycin Trough Rheumatoid Factor Complement C4 Miscellaneous Test Crossmatch 01/18/17 01/18/17 01/18/17 05:19 12:16 18:11 WBC RBC Hgb Hct MCV MCH MCHC RDW Plt Count Lymph % (Auto) [place] % (Auto) Lymph # [place] # Baso # Seg Neutrophils % Seg Neuts % (Manual) Lymphocytes % (Manual) Monocytes % (Manual) Eosinophils % (Manual) Basophils % (Manual) Nucleated RBC % Seg Neutrophils # Seg Neutrophils # Man Lymphocytes # (Manual) Monocytes # (Manual) Eosinophils # (Manual) Basophils # (Manual) PT INR Fibrinogen dRVVT Confirm Interp Factor V Activity POC ABG pH POC ABG pCO2 POC ABG pO2 ABG pO2 ABG HCO3 ABG Base Excess ABG Hemoglobin Oxyhemoglobin Sodium Potassium Chloride Carbon Dioxide BUN Creatinine Glucose POC Glucose 134 H 188 H 113 H Lactic Acid Calcium Phosphorus Magnesium Direct Bilirubin AST ALT Alkaline Phosphatase Lactate Dehydrogenase Troponin T C-Reactive Protein Total Protein Albumin Prealbumin Triglycerides Cholesterol LDL Cholesterol Direct HDL Cholesterol Urine pH Urine WBC (Auto) Urine Creatinine Urine Total Protein Fluid Total Protein Vancomycin Trough Rheumatoid Factor Complement C4 Miscellaneous Test Crossmatch 01/19/17 01/19/17 01/19/17 00:00 05:30 05:36 WBC RBC Hgb Hct MCV MCH MCHC RDW Plt Count Lymph % (Auto) [place] % (Auto) Lymph # [place] # Baso # Seg Neutrophils % Seg Neuts % (Manual) Lymphocytes % (Manual) Monocytes % (Manual) Eosinophils % (Manual) Basophils % (Manual) Nucleated RBC % Seg Neutrophils # Seg Neutrophils # Man Lymphocytes # (Manual) Monocytes # (Manual) Eosinophils # (Manual) Basophils # (Manual) PT INR Fibrinogen dRVVT Confirm Interp Factor V Activity POC ABG pH POC ABG pCO2 POC ABG pO2 ABG pO2 ABG HCO3 ABG Base Excess ABG Hemoglobin Oxyhemoglobin Sodium Potassium Chloride Carbon Dioxide BUN 70 H Creatinine 1.5 H Glucose 121 H POC Glucose 137 H 155 H Lactic Acid Calcium Phosphorus 2.10 L D Magnesium Direct Bilirubin AST ALT Alkaline Phosphatase Lactate Dehydrogenase Troponin T C-Reactive Protein Total Protein Albumin Prealbumin Triglycerides Cholesterol LDL Cholesterol Direct HDL Cholesterol Urine pH Urine WBC (Auto) Urine Creatinine Urine Total Protein Fluid Total Protein Vancomycin Trough Rheumatoid Factor Complement C4 Miscellaneous Test Crossmatch 01/19/17 01/19/17 01/19/17 11:59 15:32 17:57 WBC RBC Hgb Hct MCV MCH MCHC RDW Plt Count Lymph % (Auto) [place] % (Auto) Lymph # [place] # Baso # Seg Neutrophils % Seg Neuts % (Manual) Lymphocytes % (Manual) Monocytes % (Manual) Eosinophils % (Manual) Basophils % (Manual) Nucleated RBC % Seg Neutrophils # Seg Neutrophils # Man Lymphocytes # (Manual) Monocytes # (Manual) Eosinophils # (Manual) Basophils # (Manual) PT INR Fibrinogen dRVVT Confirm Interp Factor V Activity POC ABG pH POC ABG pCO2 33.1 L POC ABG pO2 76 L ABG pO2 ABG HCO3 ABG Base Excess ABG Hemoglobin Oxyhemoglobin Sodium Potassium Chloride Carbon Dioxide BUN Creatinine Glucose POC Glucose 156 H 129 H Lactic Acid Calcium Phosphorus Magnesium Direct Bilirubin AST ALT Alkaline Phosphatase Lactate Dehydrogenase Troponin T C-Reactive Protein Total Protein Albumin Prealbumin Triglycerides Cholesterol LDL Cholesterol Direct HDL Cholesterol Urine pH Urine WBC (Auto) Urine Creatinine Urine Total Protein Fluid Total Protein Vancomycin Trough Rheumatoid Factor Complement C4 Miscellaneous Test Crossmatch 01/19/17 01/20/17 01/20/17 23:49 04:00 05:21 WBC RBC Hgb Hct MCV MCH MCHC RDW Plt Count Lymph % (Auto) [place] % (Auto) Lymph # [place] # Baso # Seg Neutrophils % Seg Neuts % (Manual) Lymphocytes % (Manual) Monocytes % (Manual) Eosinophils % (Manual) Basophils % (Manual) Nucleated RBC % Seg Neutrophils # Seg Neutrophils # Man Lymphocytes # (Manual) Monocytes # (Manual) Eosinophils # (Manual) Basophils # (Manual) PT INR Fibrinogen dRVVT Confirm Interp Factor V Activity POC ABG pH POC ABG pCO2 POC ABG pO2 ABG pO2 ABG HCO3 ABG Base Excess ABG Hemoglobin Oxyhemoglobin Sodium Potassium Chloride Carbon Dioxide BUN 96 H Creatinine 1.9 H Glucose 106 H POC Glucose 125 H 130 H Lactic Acid Calcium Phosphorus 2.40 L Magnesium Direct Bilirubin AST ALT Alkaline Phosphatase Lactate Dehydrogenase Troponin T C-Reactive Protein Total Protein Albumin Prealbumin Triglycerides Cholesterol LDL Cholesterol Direct HDL Cholesterol Urine pH Urine WBC (Auto) Urine Creatinine Urine Total Protein Fluid Total Protein Vancomycin Trough Rheumatoid Factor Complement C4 Miscellaneous Test Crossmatch 01/20/17 01/20/17 01/20/17 11:58 12:17 17:26 WBC RBC Hgb Hct MCV MCH MCHC RDW Plt Count Lymph % (Auto) [place] % (Auto) Lymph # [place] # Baso # Seg Neutrophils % Seg Neuts % (Manual) Lymphocytes % (Manual) Monocytes % (Manual) Eosinophils % (Manual) Basophils % (Manual) Nucleated RBC % Seg Neutrophils # Seg Neutrophils # Man Lymphocytes # (Manual) Monocytes # (Manual) Eosinophils # (Manual) Basophils # (Manual) PT INR Fibrinogen dRVVT Confirm Interp Factor V Activity POC ABG pH POC ABG pCO2 POC ABG pO2 70 L ABG pO2 ABG HCO3 ABG Base Excess ABG Hemoglobin Oxyhemoglobin Sodium Potassium Chloride Carbon Dioxide BUN Creatinine Glucose POC Glucose 118 H 154 H Lactic Acid Calcium Phosphorus Magnesium Direct Bilirubin AST ALT Alkaline Phosphatase Lactate Dehydrogenase Troponin T C-Reactive Protein Total Protein Albumin Prealbumin Triglycerides Cholesterol LDL Cholesterol Direct HDL Cholesterol Urine pH Urine WBC (Auto) Urine Creatinine Urine Total Protein Fluid Total Protein Vancomycin Trough Rheumatoid Factor Complement C4 Miscellaneous Test Crossmatch 01/21/17 01/21/17 01/21/17 04:00 04:56 11:46 WBC RBC Hgb Hct MCV MCH MCHC RDW Plt Count Lymph % (Auto) [place] % (Auto) Lymph # [place] # Baso # Seg Neutrophils % Seg Neuts % (Manual) Lymphocytes % (Manual) Monocytes % (Manual) Eosinophils % (Manual) Basophils % (Manual) Nucleated RBC % Seg Neutrophils # Seg Neutrophils # Man Lymphocytes # (Manual) Monocytes # (Manual) Eosinophils # (Manual) Basophils # (Manual) PT INR Fibrinogen dRVVT Confirm Interp Factor V Activity POC ABG pH POC ABG pCO2 POC ABG pO2 ABG pO2 ABG HCO3 ABG Base Excess ABG Hemoglobin Oxyhemoglobin Sodium Potassium 3.5 L Chloride 97.4 L Carbon Dioxide BUN 66 H Creatinine 1.4 H Glucose POC Glucose 116 H 106 H Lactic Acid Calcium Phosphorus 2.10 L Magnesium Direct Bilirubin AST ALT Alkaline Phosphatase Lactate Dehydrogenase Troponin T C-Reactive Protein Total Protein Albumin Prealbumin Triglycerides Cholesterol LDL Cholesterol Direct HDL Cholesterol Urine pH Urine WBC (Auto) Urine Creatinine Urine Total Protein Fluid Total Protein Vancomycin Trough Rheumatoid Factor Complement C4 Miscellaneous Test Crossmatch 01/21/17 01/21/17 01/22/17 17:25 23:49 05:35 WBC RBC Hgb Hct MCV MCH MCHC RDW Plt Count Lymph % (Auto) [place] % (Auto) Lymph # [place] # Baso # Seg Neutrophils % Seg Neuts % (Manual) Lymphocytes % (Manual) Monocytes % (Manual) Eosinophils % (Manual) Basophils % (Manual) Nucleated RBC % Seg Neutrophils # Seg Neutrophils # Man Lymphocytes # (Manual) Monocytes # (Manual) Eosinophils # (Manual) Basophils # (Manual) PT INR Fibrinogen dRVVT Confirm Interp Factor V Activity POC ABG pH POC ABG pCO2 POC ABG pO2 ABG pO2 ABG HCO3 ABG Base Excess ABG Hemoglobin Oxyhemoglobin Sodium Potassium Chloride Carbon Dioxide BUN Creatinine Glucose POC Glucose 106 H 133 H 107 H Lactic Acid Calcium Phosphorus Magnesium Direct Bilirubin AST ALT Alkaline Phosphatase Lactate Dehydrogenase Troponin T C-Reactive Protein Total Protein Albumin Prealbumin Triglycerides Cholesterol LDL Cholesterol Direct HDL Cholesterol Urine pH Urine WBC (Auto) Urine Creatinine Urine Total Protein Fluid Total Protein Vancomycin Trough Rheumatoid Factor Complement C4 Miscellaneous Test Crossmatch 01/22/17 01/22/17 01/22/17 07:20 07:20 11:31 WBC RBC 2.75 L Hgb 7.5 L Hct 22.7 L MCV MCH 27 L MCHC RDW 17.5 H Plt Count Lymph % (Auto) [place] % (Auto) Lymph # [place] # Baso # Seg Neutrophils % Seg Neuts % (Manual) Lymphocytes % (Manual) Monocytes % (Manual) Eosinophils % (Manual) Basophils % (Manual) Nucleated RBC % Seg Neutrophils # Seg Neutrophils # Man Lymphocytes # (Manual) Monocytes # (Manual) Eosinophils # (Manual) Basophils # (Manual) PT INR Fibrinogen dRVVT Confirm Interp Factor V Activity POC ABG pH POC ABG pCO2 POC ABG pO2 ABG pO2 ABG HCO3 ABG Base Excess ABG Hemoglobin Oxyhemoglobin Sodium Potassium 3.3 L Chloride Carbon Dioxide BUN 42 H Creatinine Glucose 105 H POC Glucose 124 H Lactic Acid Calcium Phosphorus 1.70 L Magnesium Direct Bilirubin AST ALT Alkaline Phosphatase Lactate Dehydrogenase Troponin T C-Reactive Protein Total Protein Albumin Prealbumin Triglycerides Cholesterol LDL Cholesterol Direct HDL Cholesterol Urine pH Urine WBC (Auto) Urine Creatinine Urine Total Protein Fluid Total Protein Vancomycin Trough Rheumatoid Factor Complement C4 Miscellaneous Test Crossmatch 01/22/17 01/22/17 01/23/17 17:16 23:35 05:35 WBC RBC Hgb Hct MCV MCH MCHC RDW Plt Count Lymph % (Auto) [place] % (Auto) Lymph # [place] # Baso # Seg Neutrophils % Seg Neuts % (Manual) Lymphocytes % (Manual) Monocytes % (Manual) Eosinophils % (Manual) Basophils % (Manual) Nucleated RBC % Seg Neutrophils # Seg Neutrophils # Man Lymphocytes # (Manual) Monocytes # (Manual) Eosinophils # (Manual) Basophils # (Manual) PT INR Fibrinogen dRVVT Confirm Interp Factor V Activity POC ABG pH POC ABG pCO2 POC ABG pO2 ABG pO2 ABG HCO3 ABG Base Excess ABG Hemoglobin Oxyhemoglobin Sodium Potassium Chloride Carbon Dioxide BUN Creatinine Glucose POC Glucose 135 H 120 H 111 H Lactic Acid Calcium Phosphorus Magnesium Direct Bilirubin AST ALT Alkaline Phosphatase Lactate Dehydrogenase Troponin T C-Reactive Protein Total Protein Albumin Prealbumin Triglycerides Cholesterol LDL Cholesterol Direct HDL Cholesterol Urine pH Urine WBC (Auto) Urine Creatinine Urine Total Protein Fluid Total Protein Vancomycin Trough Rheumatoid Factor Complement C4 Miscellaneous Test Crossmatch 01/23/17 01/23/17 01/23/17 06:10 17:27 23:44 WBC RBC Hgb Hct MCV MCH MCHC RDW Plt Count Lymph % (Auto) [place] % (Auto) Lymph # [place] # Baso # Seg Neutrophils % Seg Neuts % (Manual) Lymphocytes % (Manual) Monocytes % (Manual) Eosinophils % (Manual) Basophils % (Manual) Nucleated RBC % Seg Neutrophils # Seg Neutrophils # Man Lymphocytes # (Manual) Monocytes # (Manual) Eosinophils # (Manual) Basophils # (Manual) PT INR Fibrinogen dRVVT Confirm Interp Factor V Activity POC ABG pH POC ABG pCO2 POC ABG pO2 ABG pO2 ABG HCO3 ABG Base Excess ABG Hemoglobin Oxyhemoglobin Sodium Potassium 3.3 L Chloride Carbon Dioxide BUN 66 H Creatinine 1.3 H Glucose 109 H POC Glucose 120 H 115 H Lactic Acid Calcium Phosphorus 2.20 L D Magnesium Direct Bilirubin AST ALT Alkaline Phosphatase Lactate Dehydrogenase Troponin T C-Reactive Protein Total Protein Albumin Prealbumin Triglycerides Cholesterol LDL Cholesterol Direct HDL Cholesterol Urine pH Urine WBC (Auto) Urine Creatinine Urine Total Protein Fluid Total Protein Vancomycin Trough Rheumatoid Factor Complement C4 Miscellaneous Test Crossmatch 01/24/17 01/24/17 01/24/17 05:19 05:50 12:19 WBC RBC Hgb Hct MCV MCH MCHC RDW Plt Count Lymph % (Auto) [place] % (Auto) Lymph # [place] # Baso # Seg Neutrophils % Seg Neuts % (Manual) Lymphocytes % (Manual) Monocytes % (Manual) Eosinophils % (Manual) Basophils % (Manual) Nucleated RBC % Seg Neutrophils # Seg Neutrophils # Man Lymphocytes # (Manual) Monocytes # (Manual) Eosinophils # (Manual) Basophils # (Manual) PT INR Fibrinogen dRVVT Confirm Interp Factor V Activity POC ABG pH POC ABG pCO2 POC ABG pO2 ABG pO2 ABG HCO3 ABG Base Excess ABG Hemoglobin Oxyhemoglobin Sodium Potassium Chloride Carbon Dioxide BUN 47 H Creatinine Glucose 117 H POC Glucose 126 H 119 H Lactic Acid Calcium Phosphorus 2.30 L Magnesium 1.60 L Direct Bilirubin AST ALT Alkaline Phosphatase Lactate Dehydrogenase Troponin T C-Reactive Protein Total Protein Albumin Prealbumin Triglycerides Cholesterol LDL Cholesterol Direct HDL Cholesterol Urine pH Urine WBC (Auto) Urine Creatinine Urine Total Protein Fluid Total Protein Vancomycin Trough Rheumatoid Factor Complement C4 Miscellaneous Test Crossmatch 01/24/17 01/25/17 01/25/17 17:08 00:37 04:00 WBC RBC Hgb Hct MCV MCH MCHC RDW Plt Count Lymph % (Auto) [place] % (Auto) Lymph # [place] # Baso # Seg Neutrophils % Seg Neuts % (Manual) Lymphocytes % (Manual) Monocytes % (Manual) Eosinophils % (Manual) Basophils % (Manual) Nucleated RBC % Seg Neutrophils # Seg Neutrophils # Man Lymphocytes # (Manual) Monocytes # (Manual) Eosinophils # (Manual) Basophils # (Manual) PT INR Fibrinogen dRVVT Confirm Interp Factor V Activity POC ABG pH POC ABG pCO2 POC ABG pO2 ABG pO2 ABG HCO3 ABG Base Excess ABG Hemoglobin Oxyhemoglobin Sodium Potassium Chloride Carbon Dioxide BUN 72 H Creatinine 1.3 H Glucose POC Glucose 127 H 110 H Lactic Acid Calcium Phosphorus Magnesium Direct Bilirubin AST ALT Alkaline Phosphatase Lactate Dehydrogenase Troponin T C-Reactive Protein Total Protein Albumin Prealbumin Triglycerides Cholesterol LDL Cholesterol Direct HDL Cholesterol Urine pH Urine WBC (Auto) Urine Creatinine Urine Total Protein Fluid Total Protein Vancomycin Trough Rheumatoid Factor Complement C4 Miscellaneous Test Crossmatch 01/25/17 01/25/17 01/25/17 04:00 11:15 13:05 WBC RBC 2.49 L Hgb 6.7 L Hct 20.9 L MCV MCH 27 L MCHC RDW 18.8 H Plt Count Lymph % (Auto) [place] % (Auto) 10.1 H Lymph # [place] # 1.0 H Baso # Seg Neutrophils % Seg Neuts % (Manual) Lymphocytes % (Manual) Monocytes % (Manual) Eosinophils % (Manual) Basophils % (Manual) Nucleated RBC % Seg Neutrophils # Seg Neutrophils # Man Lymphocytes # (Manual) Monocytes # (Manual) Eosinophils # (Manual) Basophils # (Manual) PT INR Fibrinogen dRVVT Confirm Interp Factor V Activity POC ABG pH POC ABG pCO2 POC ABG pO2 ABG pO2 ABG HCO3 ABG Base Excess ABG Hemoglobin Oxyhemoglobin Sodium Potassium Chloride Carbon Dioxide BUN Creatinine Glucose POC Glucose 128 H Lactic Acid Calcium Phosphorus Magnesium Direct Bilirubin AST ALT Alkaline Phosphatase Lactate Dehydrogenase Troponin T C-Reactive Protein Total Protein Albumin Prealbumin Triglycerides Cholesterol LDL Cholesterol Direct HDL Cholesterol Urine pH Urine WBC (Auto) Urine Creatinine Urine Total Protein Fluid Total Protein Vancomycin Trough Rheumatoid Factor Complement C4 Miscellaneous Test Crossmatch See Detail 01/25/17 01/25/17 01/26/17 18:02 23:07 01:20 WBC RBC Hgb Hct MCV MCH MCHC RDW Plt Count Lymph % (Auto) [place] % (Auto) Lymph # [place] # Baso # Seg Neutrophils % Seg Neuts % (Manual) Lymphocytes % (Manual) Monocytes % (Manual) Eosinophils % (Manual) Basophils % (Manual) Nucleated RBC % Seg Neutrophils # Seg Neutrophils # Man Lymphocytes # (Manual) Monocytes # (Manual) Eosinophils # (Manual) Basophils # (Manual) PT INR Fibrinogen dRVVT Confirm Interp Factor V Activity POC ABG pH POC ABG pCO2 POC ABG pO2 ABG pO2 ABG HCO3 ABG Base Excess ABG Hemoglobin Oxyhemoglobin Sodium Potassium Chloride Carbon Dioxide BUN Creatinine Glucose POC Glucose 120 H 123 H 112 H Lactic Acid Calcium Phosphorus Magnesium Direct Bilirubin AST ALT Alkaline Phosphatase Lactate Dehydrogenase Troponin T C-Reactive Protein Total Protein Albumin Prealbumin Triglycerides Cholesterol LDL Cholesterol Direct HDL Cholesterol Urine pH Urine WBC (Auto) Urine Creatinine Urine Total Protein Fluid Total Protein Vancomycin Trough Rheumatoid Factor Complement C4 Miscellaneous Test Crossmatch 01/26/17 01/26/17 01/26/17 04:20 04:20 11:23 WBC 13.1 H RBC 3.28 L Hgb 9.0 L Hct 26.9 L D MCV MCH 27 L MCHC RDW 17.2 H Plt Count Lymph % (Auto) [place] % (Auto) 9.0 H Lymph # [place] # 1.2 H Baso # Seg Neutrophils % 73.1 H Seg Neuts % (Manual) Lymphocytes % (Manual) Monocytes % (Manual) Eosinophils % (Manual) Basophils % (Manual) Nucleated RBC % Seg Neutrophils # 9.6 H Seg Neutrophils # Man Lymphocytes # (Manual) Monocytes # (Manual) Eosinophils # (Manual) Basophils # (Manual) PT INR Fibrinogen dRVVT Confirm Interp Factor V Activity POC ABG pH POC ABG pCO2 POC ABG pO2 ABG pO2 ABG HCO3 ABG Base Excess ABG Hemoglobin Oxyhemoglobin Sodium Potassium Chloride Carbon Dioxide BUN 51 H Creatinine Glucose 117 H POC Glucose 125 H Lactic Acid Calcium Phosphorus Magnesium Direct Bilirubin AST ALT Alkaline Phosphatase Lactate Dehydrogenase Troponin T C-Reactive Protein Total Protein Albumin Prealbumin Triglycerides Cholesterol LDL Cholesterol Direct HDL Cholesterol Urine pH Urine WBC (Auto) Urine Creatinine Urine Total Protein Fluid Total Protein Vancomycin Trough Rheumatoid Factor Complement C4 Miscellaneous Test Crossmatch 01/26/17 01/27/17 01/27/17 17:11 00:30 04:00 WBC RBC Hgb Hct MCV MCH MCHC RDW Plt Count Lymph % (Auto) [place] % (Auto) Lymph # [place] # Baso # Seg Neutrophils % Seg Neuts % (Manual) Lymphocytes % (Manual) Monocytes % (Manual) Eosinophils % (Manual) Basophils % (Manual) Nucleated RBC % Seg Neutrophils # Seg Neutrophils # Man Lymphocytes # (Manual) Monocytes # (Manual) Eosinophils # (Manual) Basophils # (Manual) PT INR Fibrinogen dRVVT Confirm Interp Factor V Activity POC ABG pH POC ABG pCO2 POC ABG pO2 ABG pO2 ABG HCO3 ABG Base Excess ABG Hemoglobin Oxyhemoglobin Sodium Potassium Chloride 97.7 L Carbon Dioxide 21 L BUN 79 H Creatinine 1.7 H D Glucose 112 H POC Glucose 133 H 135 H Lactic Acid Calcium Phosphorus 5.00 H D Magnesium Direct Bilirubin AST ALT Alkaline Phosphatase Lactate Dehydrogenase Troponin T C-Reactive Protein Total Protein Albumin Prealbumin Triglycerides Cholesterol LDL Cholesterol Direct HDL Cholesterol Urine pH Urine WBC (Auto) Urine Creatinine Urine Total Protein Fluid Total Protein Vancomycin Trough Rheumatoid Factor Complement C4 Miscellaneous Test Crossmatch 01/27/17 05:12 WBC RBC Hgb Hct MCV MCH MCHC RDW Plt Count Lymph % (Auto) [place] % (Auto) Lymph # [place] # Baso # Seg Neutrophils % Seg Neuts % (Manual) Lymphocytes % (Manual) Monocytes % (Manual) Eosinophils % (Manual) Basophils % (Manual) Nucleated RBC % Seg Neutrophils # Seg Neutrophils # Man Lymphocytes # (Manual) Monocytes # (Manual) Eosinophils # (Manual) Basophils # (Manual) PT INR Fibrinogen dRVVT Confirm Interp Factor V Activity POC ABG pH POC ABG pCO2 POC ABG pO2 ABG pO2 ABG HCO3 ABG Base Excess ABG Hemoglobin Oxyhemoglobin Sodium Potassium Chloride Carbon Dioxide BUN Creatinine Glucose POC Glucose 116 H Lactic Acid Calcium Phosphorus Magnesium Direct Bilirubin AST ALT Alkaline Phosphatase Lactate Dehydrogenase Troponin T C-Reactive Protein Total Protein Albumin Prealbumin Triglycerides Cholesterol LDL Cholesterol Direct HDL Cholesterol Urine pH Urine WBC (Auto) Urine Creatinine Urine Total Protein Fluid Total Protein Vancomycin Trough Rheumatoid Factor Complement C4 Miscellaneous Test Crossmatch Allied health notes reviewed: RT (not tolerating weaning. Has been on hold as she has been vomiting)
[2017-01-27] MEDS ORDERED: ATIVAN IV ONE (12:30)
[2017-01-27] MEDS: HEPARIN IV PRN (15:09)
--- NOTE | 2017-01-27 15:31 | Progress Note ---
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 Epogen TIW prn * Vent management per pulm/CCM * Pressors prn for MAP>65 * Dose medications for renal function Subjective Date of service: 01/27/17 Principal diagnosis: Acute resp failure on MVS; S/P Acute CVA; Acute Encephalopathy; JUANITA Interval history: No acute events Objective - Vital Signs Vital signs: Vital Signs - 12hr 01/27/17 01/27/17 01/27/17 03:45 03:47 03:48 Temperature 99.7 F H Pulse Rate 114 H 114 H Pulse Rate [ Apical] Pulse Rate [ From Monitor] Respiratory 27 H Rate Respiratory Rate [ Generalized] Blood Pressure 96/51 96/51 O2 Sat by Pulse 98 98 Oximetry O2 Sat by Pulse Oximetry [ Anterior Bilateral Throughout] O2 Sat by Pulse Oximetry [ Assessment] 01/27/17 01/27/17 01/27/17 04:00 04:15 04:30 Temperature Pulse Rate 116 H 108 H 116 H Pulse Rate [ 116 H Apical] Pulse Rate [ From Monitor] Respiratory 25 H 26 H 27 H Rate Respiratory Rate [ Generalized] Blood Pressure 99/57 82/49 97/60 O2 Sat by Pulse 97 98 98 Oximetry O2 Sat by Pulse Oximetry [ Anterior Bilateral Throughout] O2 Sat by Pulse Oximetry [ Assessment] 01/27/17 01/27/17 01/27/17 04:45 05:00 05:15 Temperature Pulse Rate 116 H 114 H 112 H Pulse Rate [ Apical] Pulse Rate [ From Monitor] Respiratory 31 H 32 H 27 H Rate Respiratory Rate [ Generalized] Blood Pressure 88/56 92/57 98/57 O2 Sat by Pulse 93 100 96 Oximetry O2 Sat by Pulse Oximetry [ Anterior Bilateral Throughout] O2 Sat by Pulse Oximetry [ Assessment] 01/27/17 01/27/1701/27/17 05:30 05:45 06:00 Temperature Pulse Rate 113 H 111 H 117 H Pulse Rate [ Apical] Pulse Rate [ From Monitor] Respiratory 28 H 23 28 H Rate Respiratory Rate [ Generalized] Blood Pressure 98/57 95/52 97/54 O2 Sat by Pulse 99 99 95 Oximetry O2 Sat by Pulse Oximetry [ Anterior Bilateral Throughout] O2 Sat by Pulse Oximetry [ Assessment] 01/27/17 01/27/17 01/27/17 06:13 06:15 06:30 Temperature Pulse Rate 112 H 113 H 116 H Pulse Rate [ Apical] Pulse Rate [ From Monitor] Respiratory 28 H 22 Rate Respiratory Rate [ Generalized] Blood Pressure 97/54 93/53 86/59 O2 Sat by Pulse 99 90 Oximetry O2 Sat by Pulse Oximetry [ Anterior Bilateral Throughout] O2 Sat by Pulse Oximetry [ Assessment] 01/27/17 01/27/17 01/27/17 06:45 07:00 07:15 Temperature Pulse Rate 115 H 113 H 115 H Pulse Rate [ Apical] Pulse Rate [ From Monitor] Respiratory 33 H 26 H 30 H Rate Respiratory Rate [ Generalized] Blood Pressure 92/51 86/49 96/54 O2 Sat by Pulse 89 93 95 Oximetry O2 Sat by Pulse Oximetry [ Anterior Bilateral Throughout] O2 Sat by Pulse Oximetry [ Assessment] 01/27/17 01/27/17 01/27/17 07:30 07:45 08:00 Temperature 99.2 F Pulse Rate 115 H 114 H 115 H Pulse Rate [ Apical] Pulse Rate [ 115 H From Monitor] Respiratory 19 26 H 18 Rate Respiratory Rate [ Generalized] Blood Pressure 105/57 88/53 107/46 O2 Sat by Pulse 96 92 98 Oximetry O2 Sat by Pulse Oximetry [ Anterior Bilateral Throughout] O2 Sat by Pulse Oximetry [ Assessment] 01/27/17 01/27/17 01/27/17 08:15 08:30 08:45 Temperature Pulse Rate 113 H 111 H 114 H Pulse Rate [ Apical] Pulse Rate [ From Monitor] Respiratory 16 27 H 22 Rate Respiratory Rate [ Generalized] Blood Pressure 98/53 94/51 92/58 O2 Sat by Pulse 99 98 99 Oximetry O2 Sat by Pulse Oximetry [ Anterior Bilateral Throughout] O2 Sat by Pulse Oximetry [ Assessment] 01/27/17 01/27/17 01/27/17 09:00 09:15 09:30 Temperature Pulse Rate 112 H 114 H 111 H Pulse Rate [ Apical] Pulse Rate [ From Monitor] Respiratory 19 18 26 H Rate Respiratory Rate [ Generalized] Blood Pressure 100/53 105/55 101/58 O2 Sat by Pulse 98 98 98 Oximetry O2 Sat by Pulse Oximetry [ Anterior Bilateral Throughout] O2 Sat by Pulse Oximetry [ Assessment] 01/27/17 01/27/17 01/27/17 09:45 10:00 10:03 Temperature Pulse Rate 113 H 122 H 116 H Pulse Rate [ Apical] Pulse Rate [ From Monitor] Respiratory 22 26 H Rate Respiratory 23 Rate [ Generalized] Blood Pressure 96/59 94/59 94/59 O2 Sat by Pulse 98 98 Oximetry O2 Sat by Pulse Oximetry [ Anterior Bilateral Throughout] O2 Sat by Pulse Oximetry [ Assessment] 01/27/17 01/27/17 01/27/17 10:15 10:30 10:45 Temperature Pulse Rate 113 H 110 H 113 H Pulse Rate [ Apical] Pulse Rate [ From Monitor] Respiratory 17 20 25 H Rate Respiratory Rate [ Generalized] Blood Pressure 93/49 91/50 94/46 O2 Sat by Pulse 98 98 97 Oximetry O2 Sat by Pulse Oximetry [ Anterior Bilateral Throughout] O2 Sat by Pulse 98 Oximetry [ Assessment] 01/27/17 01/27/17 01/27/17 10:55 11:00 11:15 Temperature Pulse Rate 116 H 111 H 116 H Pulse Rate [ Apical] Pulse Rate [ From Monitor] Respiratory 20 25 H Rate Respiratory Rate [ Generalized] Blood Pressure 94/59 90/44 88/49 O2 Sat by Pulse 97 97 97 Oximetry O2 Sat by Pulse Oximetry [ Anterior Bilateral Throughout] O2 Sat by Pulse Oximetry [ Assessment] 01/27/17 01/27/17 01/27/17 11:30 11:45 11:50 Temperature 99.3 F Pulse Rate 124 H 139 H 110 H Pulse Rate [ Apical] Pulse Rate [ From Monitor] Respiratory 38 H 49 H Rate Respiratory Rate [ Generalized] Blood Pressure 98/56 110/57 110/57 O2 Sat by Pulse 97 91 98 Oximetry O2 Sat by Pulse 90 Oximetry [ Anterior Bilateral Throughout] O2 Sat by Pulse Oximetry [ Assessment] 01/27/17 01/27/17 01/27/17 12:00 12:15 12:16 Temperature 99.3 F Pulse Rate 138 H 145 H 162 H Pulse Rate [ Apical] Pulse Rate [ 138 H From Monitor] Respiratory 19 21 Rate Respiratory Rate [ Generalized] Blood Pressure 103/58 95/48 95/48 O2 Sat by Pulse 94 92 Oximetry O2 Sat by Pulse Oximetry [ Anterior Bilateral Throughout] O2 Sat by Pulse Oximetry [ Assessment] 01/27/17 01/27/17 01/27/17 12:30 12:46 12:47 Temperature Pulse Rate 166 H 161 H 148 H Pulse Rate [ Apical] Pulse Rate [ From Monitor] Respiratory 36 H 33 H Rate Respiratory Rate [ Generalized] Blood Pressure 92/48 90/42 92/48 O2 Sat by Pulse 92 94 Oximetry O2 Sat by Pulse Oximetry [ Anterior Bilateral Throughout] O2 Sat by Pulse Oximetry [ Assessment] 01/27/17 01/27/17 01/27/17 13:00 13:03 13:15 Temperature Pulse Rate 146 H 137 H 128 H Pulse Rate [ Apical] Pulse Rate [ From Monitor] Respiratory 36 H 32 H Rate Respiratory Rate [ Generalized] Blood Pressure 91/30 89/40 91/42 O2 Sat by Pulse 96 98 Oximetry O2 Sat by Pulse Oximetry [ Anterior Bilateral Throughout] O2 Sat by Pulse Oximetry [ Assessment] 01/27/17 01/27/17 01/27/17 13:30 13:32 13:46 Temperature Pulse Rate 127 H 128 H 126 H Pulse Rate [ Apical] Pulse Rate [ From Monitor] Respiratory 30 H 28 H Rate Respiratory Rate [ Generalized] Blood Pressure 92/49 92/49 89/50 O2 Sat by Pulse 99 100 Oximetry O2 Sat by Pulse Oximetry [ Anterior Bilateral Throughout] O2 Sat by Pulse Oximetry [ Assessment] 01/27/17 01/27/17 01/27/17 13:49 14:05 14:15 Temperature Pulse Rate 132 H 126 H 124 H Pulse Rate [ Apical] Pulse Rate [ From Monitor] Respiratory Rate Respiratory Rate [ Generalized] Blood Pressure 89/50 94/49 85/54 O2 Sat by Pulse Oximetry O2 Sat by Pulse Oximetry [ Anterior Bilateral Throughout] O2 Sat by Pulse Oximetry [ Assessment] 01/27/17 01/27/17 01/27/17 14:33 14:51 15:05 Temperature 99.3 F Pulse Rate 121 H 121 H 119 H Pulse Rate [ Apical] Pulse Rate [ From Monitor] Respiratory 30 H Rate Respiratory Rate [ Generalized] Blood Pressure 94/48 88/55 98/59 O2 Sat by Pulse Oximetry O2 Sat by Pulse 99 Oximetry [ Anterior Bilateral Throughout] O2 Sat by Pulse Oximetry [ Assessment] - General Appearance General appearance: chronically ill, intubated EENT: ATNC Neck: other (trach) Respiratory: Present: Other (coarse breath sounds) Cardiology: regular, S1S2 Neurologic: other (does not respond to tactile/verbal stimuli) Musculoskeletal: other (dependent edema) - Lab 01/26/17 04:20 01/27/17 04:00 Most recent lab results ABG pH 7.450 pH Units (7.350-7.450) 12/05/16 Unknown ABG pCO2 29.6 mm Hg 12/05/16 Unknown ABG pO2 75.2 mm Hg (80.0-90.0) L 12/05/16 Unknown ABG HCO3 20.1 mmol/L (20.0-26.0) 12/05/16 Unknown ABG O2 Saturation 96.8 % (95.0-99.0) 12/05/16 Unknown Calcium 9.1 mg/dL (8.4-10.2) 01/27/17 04:00 Phosphorus 5.00 mg/dL (2.5-4.5) H D 01/27/17 04:00 Magnesium 2.10 mg/dL (1.7-2.3) 01/27/17 04:00 Urine Creatinine 19.7 mg/dL (0.1-20.0) 11/12/16 10:18 Urine Sodium 36 mEq/L 09/16/16 19:19 Urine Total Protein 16 mg/dL (5-11.8) H 09/16/16 19:19
--- NOTE | 2017-01-27 16:59 | Progress Note ---
Assessment and Plan Assessment and plan: 46 years old female with massive stroke, now in vegetative state - Massive stroke with mass effect On vegetative state - Multiple episodes of sepsis with septic shock during her hospitalization Due to aspiration pneumonia/peritonitis from gastric perforation/UTI/candidemia/ decubitus ulcer Status post recent sacral decubitus debridement Right pleural effusion - scheduled for chest ultrasound for possible thoracentesis Currently on meropenem with stop date 02/04 - Acute hypoxic respiratory failure Status post tracheostomy Unweanable from vent support - Acute renal failure Likely due to ATN Renal function improved significantly, creatinine reached normal limits, now slight trend up Nephrology following - Paroxysmal atrial fibrillation with RVR Status post failed cardioversion Rate control Not on anticoagulation due to anemia/thrombocytopenia/massive stroke - Diabetes Accu-Cheks and SSI - Anemia Multifactorial, status post multiple PRBC transfusions Monitoring H&H - Thrombocytopenia Possible secondary to sepsis Now resolved - Electrolyte abnormalities Monitoring and replacing daily as needed - Severe protein calorie malnutrition TPN per dietitian - Encephalopathy Toxic metabolic initially, underlying conditions treated In vegetative state now - Per family's wishes, full code despite extremely poor prognosis History Interval history: Remains tachycardic, tachypneic, on vent; low grade fever Hospitalist Physical - Constitutional Vitals: Temp Pulse Resp BP Pulse Ox 97.4 F L 119 H 30 H 98/59 99 01/27/17 16:00 01/27/17 15:05 01/27/17 15:05 01/27/17 15:05 01/27/17 15:05 General appearance: Present: mild distress - Neck Neck: Present: supple, other (trcah). Absent: masses or JVD - Respiratory Respiratory effort: labored, other (on ) Respiratory: bilateral: diminished, rhonchi - Cardiovascular Rhythm: other (tachycardic) Heart Sounds: Present: S1 & S2. Absent: systolic murmur - Extremities Extremities: no ischemia Extremity abnormal: edema - Abdominal General gastrointestinal: soft, non-tender, non-distended, normal bowel sounds - Psychiatric Psychiatric: other (unresponsive) Results - Labs CBC & Chem 7: 01/26/17 04:20 01/27/17 04:00 Labs: Laboratory Last Values WBC 13.1 K/mm3 (4.5-11.0) H 01/26/17 04:20 RBC 3.28 M/mm3 (3.65-5.03) L 01/26/17 04:20 Hgb 9.0 gm/dl (10.1-14.3) L 01/26/17 04:20 Hct 26.9 % (30.3-42.9) L D 01/26/17 04:20 MCV 82 fl (79-97) 01/26/17 04:20 MCH 27 pg (28-32) L 01/26/17 04:20 MCHC 33 % (30-34) 01/26/17 04:20 RDW 17.2 % (13.2-15.2) H 01/26/17 04:20 Plt Count 305 K/mm3 (140-440) 01/26/17 04:20 Lymph % (Auto) 16.5 % (13.4-35.0) 01/26/17 04:20 [place] % (Auto) 9.0 % (0.0-7.3) H 01/26/17 04:20 Eos % (Auto) 0.6 % (0.0-4.3) 01/26/17 04:20 Baso % (Auto) 0.8 % (0.0-1.8) 01/26/17 04:20 Lymph # 2.2 K/mm3 (1.2-5.4) 01/26/17 04:20 [place] # 1.2 K/mm3 (0.0-0.8) H 01/26/17 04:20 Eos # 0.1 K/mm3 (0.0-0.4) 01/26/17 04:20 Baso # 0.1 K/mm3 (0.0-0.1) 01/26/17 04:20 Add Manual Diff Complete 12/19/16 05:02 Total Counted 100 12/19/16 05:02 Seg Neutrophils % 73.1 % (40.0-70.0) H 01/26/17 04:20 Seg Neuts % (Manual) 64.0 % (40.0-70.0) 12/19/16 05:02 Band Neutrophils % 15.0 % 12/19/16 05:02 Lymphocytes % (Manual) 13.0 % (13.4-35.0) L 12/19/16 05:02 Reactive Lymphs % (Man) 0 % 12/19/16 05:02 Monocytes % (Manual) 7.0 % (0.0-7.3) 12/19/16 05:02 Eosinophils % (Manual) 0 % (0.0-4.3) 12/19/16 05:02 Basophils % (Manual) 1.0 % (0.0-1.8) 12/19/16 05:02 Metamyelocytes % 0 % 12/19/16 05:02 Myelocytes % 0 % 12/19/16 05:02 Promyelocytes % 0 % 12/19/16 05:02 Blast Cells % 0 % 12/19/16 05:02 Nucleated RBC % 1.0 % (0.0-0.9) H 12/19/16 05:02 Seg Neutrophils # 9.6 K/mm3 (1.8-7.7) H 01/26/17 04:20 Seg Neutrophils # Man 12.9 K/mm3 (1.8-7.7) H 12/19/16 05:02 Band Neutrophils # 3.0 K/mm3 12/19/16 05:02 Lymphocytes # (Manual) 2.6 K/mm3 (1.2-5.4) 12/19/16 05:02 Abs React Lymphs (Man) 0.0 K/mm3 12/19/16 05:02 Monocytes # (Manual) 1.4 K/mm3 (0.0-0.8) H 12/19/16 05:02 Eosinophils # (Manual) 0.0 K/mm3 (0.0-0.4) 12/19/16 05:02 Basophils # (Manual) 0.2 K/mm3 (0.0-0.1) H 12/19/16 05:02 Metamyelocytes # 0.0 K/mm3 12/19/16 05:02 Myelocytes # 0.0 K/mm3 12/19/16 05:02 Promyelocytes # 0.0 K/mm3 12/19/16 05:02 Blast Cells # 0.0 K/mm3 12/19/16 05:02 Pathologist Review 09/13/16 04:00 WBC Morphology Not Reportable 12/19/16 05:02 Hypersegmented Neuts Not Reportable 12/19/16 05:02 Hyposegmented Neuts Not Reportable 12/19/16 05:02 Hypogranular Neuts Not Reportable 12/19/16 05:02 Smudge Cells Not Reportable 12/19/16 05:02 Toxic Granulation Not Reportable 12/19/16 05:02 Toxic Vacuolation Not Reportable 12/19/16 05:02 Dohle Bodies Not Reportable 12/19/16 05:02 Pelger-Huet Anomaly Not Reportable 12/19/16 05:02 Jasmina Rods Not Reportable 12/19/16 05:02 Platelet Estimate Consistent w auto 12/19/16 05:02 Clumped Platelets Not Reportable 12/19/16 05:02 Plt Clumps, EDTA Not Reportable 12/19/16 05:02 Large Platelets Not Reportable 12/19/16 05:02 Giant Platelets Not Reportable 12/19/16 05:02 Platelet Satelliting Not Reportable 12/19/16 05:02 Plt Morphology Comment Not Reportable 12/19/16 05:02 RBC Morphology Not Reportable 12/19/16 05:02 Dimorphic RBCs Not Reportable 12/19/16 05:02 Polychromasia Not Reportable 12/19/16 05:02 Hypochromasia Not Reportable 12/19/16 05:02 Poikilocytosis Not Reportable 12/19/16 05:02 Anisocytosis Not Reportable 12/19/16 05:02 Microcytosis Not Reportable 12/19/16 05:02 Macrocytosis Not Reportable 12/19/16 05:02 Spherocytes Not Reportable 12/19/16 05:02 Pappenheimer Bodies Not Reportable 12/19/16 05:02 Sickle Cells Not Reportable 12/19/16 05:02 Target Cells Few 12/19/16 05:02 Tear Drop Cells Not Reportable 12/19/16 05:02 Ovalocytes Not Reportable 12/19/16 05:02 Stomatocytes Rare 12/03/16 04:00 Helmet Cells Not Reportable 12/19/16 05:02 Monet-Misenheimer Bodies Not Reportable 12/19/16 05:02 [place] Rings Not Reportable 12/19/16 05:02 Chuck Cells Not Reportable 12/19/16 05:02 Bite Cells Not Reportable 12/19/16 05:02 Crenated Cell Not Reportable 12/19/16 05:02 Elliptocytes Not Reportable 12/19/16 05:02 Acanthocytes (Spur) Not Reportable 12/19/16 05:02 Rouleaux Not Reportable 12/19/16 05:02 Hemoglobin C Crystals Not Reportable 12/19/16 05:02 Schistocytes Not Reportable 12/19/16 05:02 Malaria parasites Not Reportable 12/19/16 05:02 ESR > 140.0 mm/Hr (0-20) 09/08/16 11:48 Jun Bodies Not Reportable 12/19/16 05:02 Hem Pathologist Commnt No 12/19/16 05:02 PT 15.4 Sec. (12.2-14.9) H 01/13/17 15:50 INR 1.16 (0.87-1.13) H 01/13/17 15:50 APTT 33.0 Sec. (24.2-36.6) 10/09/16 03:45 Thrombin Time 16.8 Sec. (15.1-19.6) 09/03/16 00:10 Fibrinogen 750 mg/dl (211-480) H 09/08/16 11:48 Lupus Anticoagulant see below 09/12/16 09:59 LA PTT Baseline See scanned report 09/12/16 09:59 dRVVT Confirm Interp Positive (Negative) H 09/12/16 09:59 dRVVT Screen 50:50 See scanned report 09/12/16 09:59 dRVVT Mix Interpret See scanned report 09/12/16 09:59 Protein C Antigen 122 % (70-140) 09/08/16 15:35 Free Protein S 97 % normal (50-147) 09/08/16 15:35 Total Protein S 109 % (70-140) 09/08/16 15:35 Antithrombin III Ag 100 % (80-120) 09/08/16 15:35 Heparin Anti-Xa, Unfract Negative (Negative) 09/29/16 13:35 Factor V Activity 182 % (65-150) H 09/08/16 15:35 POC ABG pH 7.436 (7.35-7.45) 01/20/17 12: ABG pH 7.450 pH Units (7.350-7.450) 12/05/16 Unknown POC ABG pCO2 35.3 (35-45) 01/20/17 12: ABG pCO2 29.6 mm Hg 12/05/16 Unknown POC ABG pO2 70 (80-105) L 01/20/17 12: ABG pO2 75.2 mm Hg (80.0-90.0) L 12/05/16 Unknown POC ABG HCO3 23.8 01/20/17 12: ABG HCO3 20.1 mmol/L (20.0-26.0) 12/05/16 Unknown POC ABG Total CO2 25 01/20/17 12: POC ABG O2 Sat 94 01/20/17 12: ABG O2 Saturation 96.8 % (95.0-99.0) 12/05/16 Unknown ABG O2 Content 9.9 (0.0-44) 12/05/16 Unknown POC ABG Base Excess 0 01/20/17 12: ABG Base Excess -3.4 mmol/L (-2.0-3.0) L 12/05/16 Unknown ABG Hemoglobin 7.4 gm/dl (12.0-16.0) L 12/05/16 Unknown ABG Carboxyhemoglobin 1.8 % (0.0-5.0) 12/05/16 Unknown ABG Methemoglobin 0.6 % (0.0-1.5) 12/05/16 Unknown Oxyhemoglobin 94.5 % (95.0-99.0) L 12/05/16 Unknown FiO2 30 % 01/20/17 12:17 Sodium 137 mmol/L (137-145) 01/27/17 04:00 Potassium 4.8 mmol/L (3.6-5.0) 01/27/17 04:00 Chloride 97.7 mmol/L (98-107) L 01/27/17 04:00 Carbon Dioxide 21 mmol/L (22-30) L 01/27/17 04:00 Anion Gap 23 mmol/L 01/27/17 04:00 BUN 79 mg/dL (7-17) H 01/27/17 04:00 Creatinine 1.7 mg/dL (0.7-1.2) H D 01/27/17 04:00 Estimated GFR 39 ml/min 01/27/17 04:00 BUN/Creatinine Ratio 46 % 01/27/17 04:00 Glucose 112 mg/dL (65-100) H 01/27/17 04:00 POC Glucose 153 (70-105) H 01/27/17 12:18 Osmolality 351 Mosm/kg 09/16/16 11:47 Lactic Acid 2.30 mmol/L (0.7-2.0) H* 01/09/17 08:22 Calcium 9.1 mg/dL (8.4-10.2) 01/27/17 04:00 Phosphorus 5.00 mg/dL (2.5-4.5) H D 01/27/17 04:00 Magnesium 2.10 mg/dL (1.7-2.3) 01/27/17 04:00 Total Bilirubin 0.40 mg/dL (0.1-1.2) 01/17/17 05:30 Direct Bilirubin 0.3 mg/dL (0-0.2) H 10/10/16 05:00 Indirect Bilirubin 0.1 mg/dL 10/10/16 05:00 AST 26 units/L (5-40) 01/17/17 05:30 ALT 35 units/L (7-56) 01/17/17 05:30 Alkaline Phosphatase 254 units/L (35-129) H 01/17/17 05:30 Ammonia 27.0 umol/L (25-60) 09/07/16 08:37 Lactate Dehydrogenase 170 units/L (91-180) 01/13/17 15:50 Total Creatine Kinase 121 units/L (30-135) 09/29/16 20:12 CK-MB (CK-2) < 1.0 ng/mL (0.0-4.0) 09/29/16 20:12 CK-MB (CK-2) Rel Index 0.8 (0-4) 09/29/16 20:12 Troponin T 0.204 ng/mL (0.00-0.029) H* 09/29/16 20:12 C-Reactive Protein 24.70 mg/dL (0.00-1.30) H 01/09/17 13:30 Total Protein 6.6 g/dL (6.3-8.2) 01/17/17 05:30 Albumin 1.3 g/dL (3.9-5) L 01/17/17 05:30 Albumin/Globulin Ratio 0.2 % 01/17/17 05:30 Prealbumin 0.110 g/L (0.200-0.400) L 12/29/16 05:15 Triglycerides 137 mg/dL (2-149) 09/29/16 20:12 Cholesterol 31 mg/dL (50-199) L 09/29/16 20:12 LDL Cholesterol Direct 4 mg/dL (50-130) L 09/29/16 20:12 HDL Cholesterol 3 mg/dL (40-59) L 09/29/16 20:12 Cholesterol/HDL Ratio 10.33 % 09/29/16 20:12 Angiotensin Convert Enz See scanned report 09/08/16 11:48 Renin 0.99 ng/mL/h (0.25-5.82) 10/07/16 10:56 Aldosterone <1 ng/dL () 10/07/16 10:56 Aldosterone/Renin Dir see below 10/07/16 10:56 Serotonin Release Assay See scanned report 09/29/16 13:35 TSH 1.010 mlU/mL (0.270-4.200) 09/07/16 08:37 HCG, Qual Negative (Negative) 09/03/16 00:10 Urine Color Yellow (Yellow) 11/05/16 13:09 Urine Turbidity Clear (Clear) 11/05/16 13:09 Urine pH 9.0 (5.0-7.0) H 11/05/16 13:09 Ur Specific [place] 1.011 (1.003-1.030) 11/05/16 13:09 Urine Protein 100 mg/dl mg/dL (Negative) 11/05/16 13:09 Urine Glucose (UA) Neg mg/dL (Negative) 11/05/16 13:09 Urine Ketones Neg mg/dL (Negative) 11/05/16 13:09 Urine Blood Neg (Negative) 11/05/16 13:09 Urine Nitrite Neg (Negative) 11/05/16 13:09 Urine Bilirubin Neg (Negative) 11/05/16 13:09 Urine Urobilinogen < 2.0 mg/dL (<2.0) 11/05/16 13:09 Ur Leukocyte Esterase Neg (Negative) 11/05/16 13:09 Urine WBC (Auto) 4.0 /HPF (0.0-6.0) 11/05/16 13:09 Urine RBC (Auto) 1.0 /HPF (0.0-6.0) 11/05/16 13:09 U Epithel Cells (Auto) 1.0 /HPF (0-13.0) 10/07/16 18:30 Urine Bacteria (Auto) 4+ /HPF (Negative) 11/05/16 13:09 Urine WBC Clumps 2+ /HPF 09/07/16 02:47 Hyaline Casts 4 /LPF 09/07/16 02:47 Urine Mucus Few /HPF 10/07/16 18:30 Urine Yeast (Budding) 3+ /HPF 10/07/16 18:30 Urine Eosinophils None seen (None Seen) 09/07/16 16:00 Urine Total Volume 950 11/12/16 10:18 Urine Creatinine 19.7 mg/dL (0.1-20.0) 11/12/16 10:18 Height (in) 65.0 inches 11/12/16 10:18 Weight (lb) 181.0 lbs 11/12/16 10:18 Creatinine Clearance 5 11/12/16 10:18 Urine Sodium 36 mEq/L 09/16/16 19:19 Urine Total Protein 16 mg/dL (5-11.8) H 09/16/16 19:19 Fluid Type Pleural 01/13/17 12:10 Fluid Color Yellow 01/13/17 12:10 Fluid Appearance Hazy 01/13/17 12:10 Fluid WBC 182 /mm3 01/13/17 12:10 Fluid RBC 41 /mm3 01/13/17 12:10 Fluid Seg Neutrophils 85.0 % 01/13/17 12:10 Fluid Lymphocytes 8.0 % 01/13/17 12:10 Fluid Reactive Lymphs 0 % 01/13/17 12:10 Fluid Monocytes 6.0 % 01/13/17 12:10 Fluid Eosinophils 1.0 % 01/13/17 12:10 Fluid Basophils 0 % 01/13/17 12:10 Fluid Total Protein 3.0 (15.0-45.0) L 01/13/17 12:10 Fluid LDH 1322 01/13/17 12:10 Fluid Comment Diff performed 01/13/17 12:10 Vancomycin Trough 2.3 ug/mL (5.0-20.0) L 09/21/16 13:00 Random Vancomycin 16.5 ug/mL (0-40.0) 11/28/16 09:45 Urine Opiates Screen Presumptive negative 09/03/16 15:11 Urine Methadone Screen Presumptive positive 09/03/16 15:11 Ur Barbiturates Screen Presumptive positive 09/03/16 15:11 Ur Phencyclidine Scrn Presumptive negative 09/03/16 15:11 Ur Amphetamines Screen Presumptive negative 09/03/16 15:11 U Benzodiazepines Scrn Presumptive negative 09/03/16 15:11 Urine Cocaine Screen Presumptive negative 09/03/16 15:11 U Marijuana (THC) Screen Presumptive positive 09/03/16 15:11 Drugs of Abuse Note Disclamer 09/03/16 15:11 Rheumatoid Factor 24 IU/ml (0-13) H 09/08/16 11:48 SAHIL Screen Negative (Negative) 09/07/16 09:20 Proteinase 3 (PR3) Ab <1.0 AI (<1.0) 09/07/16 09:20 Myeloperoxidase Ab <1.0 AI (<1.0) 09/07/16 09:20 Sjogren's Antibody <1.0 AI (<1.0) 09/08/16 15:35 Scl-70 Scleroderma Ab <1.0 AI (<1.0) 09/08/16 15:35 Centromere B Antibody <1.0 AI (<1.0) 09/08/16 12:02 Heparin-induced Plt Ab Negative (Negative) 09/29/16 13:35 UF Heparin High Dose 11 % Release 09/29/16 13:35 SUDHIR UFH Low Dose 0.1 6 % Release 09/29/16 13:35 SUDHIR UFH Low Dose 0.5 8 % Release 09/29/16 13:35 Cardiolipid IgG Ab <14 GPL (<=14) 09/12/16 09:59 Cardiolipid IgA Ab <11 APL (<=11) 09/12/16 09:59 Cardiolipid IgM Ab <12 MPL (<=12) 09/12/16 09:59 Complement C3 148 mg/dL (90-180) 09/07/16 09:20 Complement C4 58 mg/dL (16-47) H 09/07/16 09:20 RPR Nonreactive (Nonreactive) 09/08/16 11:48 Hepatitis A IgM Ab Non-reactive (NonReactive) 09/24/16 14:40 Hep Bs Antigen Non-reactive (Negative) 09/24/16 14:40 Hep B Core IgM Ab Non-reactive (NonReactive) 09/24/16 14:40 Hepatitis C Antibody Non-reactive (NonReactive) 09/24/16 14:40 HIV 1&2 Antibody Rapid Non react (Non React) 09/08/16 11:48 HIV P24 Antigen Non react (Non React) 09/08/16 11:48 Miscellaneous Test Flexitest 1 H 01/09/17 18:45 Blood Type A POSITIVE 01/25/17 11:15 Antibody Screen Negative 01/25/17 11:15 DELORIS Antibody Screen Negative 11/24/16 11:20 Crossmatch See Detail 01/25/17 11:15
[2017-01-27] MEDS ORDERED: TPN ADULT IV SCH (20:00)
[2017-01-27] MEDS ORDERED: INTRALIPID 20% 250 ML IV SCH (20:00)
[2017-01-28] MEDS: LOPRESSOR PO SCH ×4 (00:21→23:55)
[2017-01-28] MEDS: HumuLIN R SUB-Q SCH ×3 (00:22→13:00)
[2017-01-28] MEDS: APRESOLINE PO SCH ×4 (00:23→23:58)
[2017-01-28] MEDS: DUONEB *Not for PRN Use IH SCH ×4 (03:12→20:12)
[2017-01-28] MEDS: REGLAN IV SCH ×3 (05:45→23:55)
[2017-01-28 06:23] LABS: Basophils # (Auto) 0.1 K/mm3 (0.0-0.1); Basophils % (Auto) 0.4 % (0.0-1.8); Eosinophils # (Auto) 0.1 K/mm3 (0.0-0.4); Eosinophils % (Auto) 0.4 % (0.0-4.3); Hematocrit 23.5 % (30.3-42.9); Hemoglobin 7.4 gm/dl (10.1-14.3); Lymphocytes # (Auto) 1.5 K/mm3 (1.2-5.4); Lymphocytes % (Auto) 10.2 % (13.4-35.0); Mean Corpuscular HGB Conc 31 % (30-34); Mean Corpuscular Hemoglobin 26 pg (28-32); Mean Corpuscular Volume 83 fl (79-97); Monocytes # (Auto) 1.6 K/mm3 (0.0-0.8); Platelet Count 306 K/mm3 (140-440); Red Blood Count 2.82 M/mm3 (3.65-5.03); Red Cell Distribution Width 17.6 % (13.2-15.2)
[2017-01-28 06:24] LABS: Albumin 1.4 g/dL (3.9-5); Bilirubin,Direct 0.2 mg/dL (0-0.2); Calcium 8.6 mg/dL (8.4-10.2)
[2017-01-28] MEDS: NACL 0.9% IV SCH (10:33)
[2017-01-28] MEDS: MERREM IV SCH (10:33)
[2017-01-28] MEDS: PROTONIX FEEDTUBE SCH (10:35)
[2017-01-28] MEDS: HEPARIN SUB-Q SCH ×2 (10:35→23:55)
[2017-01-28] MEDS: ROBINUL PO SCH ×2 (10:35→23:55)
[2017-01-28] MEDS: NORVASC PO SCH (10:36)
--- NOTE | 2017-01-28 11:43 | Progress Note ---
Assessment and Plan Assessment and plan: 46 years old female with massive stroke, now in vegetative state -- Massive stroke with mass effect, Continue supportive care -- Multiple episodes of sepsis with septic shock during her hospitalization s/p aspiration pneumonia/peritonitis from gastric perforation/UTI/candidemia/ decubitus ulcer s/p sacral decubitus debridement, Right pleural effusion - scheduled for chest ultrasound for possible thoracentesis Currently on meropenem with stop date 02/04 -- Acute hypoxic respiratory failure, s/p tracheostomy vent dependent -- Acute renal failure/ ATN, improved significantly, creatinine near normal limits -- Paroxysmal atrial fibrillation with RVR, failed cardioversion Rate control , not a candidate for anticoagulation -- Diabetes, Accu-Cheks and SSI -- Anemia, Multifactorial, status post multiple PRBC transfusions -- Thrombocytopenia/secondary to sepsis -- Electrolyte abnormalities, correct as needed -- Severe protein calorie malnutrition, TPN -- Encephalopathy, Toxic metabolic initially, underlying conditions treated -- full code, family has underwent realistic expectations poor prognosis Continue current management History Interval history: Patient seen and examined this morning medical records reviewed He remains critically ill unresponsive Vital signs reviewed Hospitalist Physical - Constitutional Vitals: Temp Pulse Resp BP Pulse Ox 98.3 F 114 H 22 99/46 99 01/28/17 08:00 01/28/17 10:36 01/28/17 08:38 01/28/17 10:36 01/28/17 08:15 General appearance: Present: no acute distress, other (unresponsive, status post tracheostomy) - EENT ENT: other (tracheostomy) - Neck Neck: Present: supple - Respiratory Respiratory effort: normal Respiratory: bilateral: diminished, rhonchi, negative: rales, wheezing - Cardiovascular Rhythm: regular Heart Sounds: Present: S1 & S2 (echocardiogram) - Extremities Extremity abnormal: edema - Abdominal General gastrointestinal: soft, non-tender, non-distended, normal bowel sounds, other (PEG tube in place) - Integumentary Integumentary: Present: clear, warm - Psychiatric Psychiatric: other (unresponsive) - Neurologic Neurologic: other (unresponsive) Results - Labs CBC & Chem 7: 01/28/17 04:00 01/28/17 04:00 Labs: Laboratory Last Values WBC 14.4 K/mm3 (4.5-11.0) H 01/28/17 04:00 RBC 2.82 M/mm3 (3.65-5.03) L 01/28/17 04:00 Hgb 7.4 gm/dl (10.1-14.3) L 01/28/17 04:00 Hct 23.5 % (30.3-42.9) L 01/28/17 04:00 MCV 83 fl (79-97) 01/28/17 04:00 MCH 26 pg (28-32) L 01/28/17 04:00 MCHC 31 % (30-34) 01/28/17 04:00 RDW 17.6 % (13.2-15.2) H 01/28/17 04:00 Plt Count 306 K/mm3 (140-440) 01/28/17 04:00 Lymph % (Auto) 10.2 % (13.4-35.0) L 01/28/17 04:00 [place] % (Auto) 11.0 % (0.0-7.3) H 01/28/17 04:00 Eos % (Auto) 0.4 % (0.0-4.3) 01/28/17 04:00 Baso % (Auto) 0.4 % (0.0-1.8) 01/28/17 04:00 Lymph # 1.5 K/mm3 (1.2-5.4) 01/28/17 04:00 [place] # 1.6 K/mm3 (0.0-0.8) H 01/28/17 04:00 Eos # 0.1 K/mm3 (0.0-0.4) 01/28/17 04:00 Baso # 0.1 K/mm3 (0.0-0.1) 01/28/17 04:00 Add Manual Diff Complete 12/19/16 05:02 Total Counted 100 12/19/16 05:02 Seg Neutrophils % 78.0 % (40.0-70.0) H 01/28/17 04:00 Seg Neuts % (Manual) 64.0 % (40.0-70.0) 12/19/16 05:02 Band Neutrophils % 15.0 % 12/19/16 05:02 Lymphocytes % (Manual) 13.0 % (13.4-35.0) L 12/19/16 05:02 Reactive Lymphs % (Man) 0 % 12/19/16 05:02 Monocytes % (Manual) 7.0 % (0.0-7.3) 12/19/16 05:02 Eosinophils % (Manual) 0 % (0.0-4.3) 12/19/16 05:02 Basophils % (Manual) 1.0 % (0.0-1.8) 12/19/16 05:02 Metamyelocytes % 0 % 12/19/16 05:02 Myelocytes % 0 % 12/19/16 05:02 Promyelocytes % 0 % 12/19/16 05:02 Blast Cells % 0 % 12/19/16 05:02 Nucleated RBC % 1.0 % (0.0-0.9) H 12/19/16 05:02 Seg Neutrophils # 11.3 K/mm3 (1.8-7.7) H 01/28/17 04:00 Seg Neutrophils # Man 12.9 K/mm3 (1.8-7.7) H 12/19/16 05:02 Band Neutrophils # 3.0 K/mm3 12/19/16 05:02 Lymphocytes # (Manual) 2.6 K/mm3 (1.2-5.4) 12/19/16 05:02 Abs React Lymphs (Man) 0.0 K/mm3 12/19/16 05:02 Monocytes # (Manual) 1.4 K/mm3 (0.0-0.8) H 12/19/16 05:02 Eosinophils # (Manual) 0.0 K/mm3 (0.0-0.4) 12/19/16 05:02 Basophils # (Manual) 0.2 K/mm3 (0.0-0.1) H 12/19/16 05:02 Metamyelocytes # 0.0 K/mm3 12/19/16 05:02 Myelocytes # 0.0 K/mm3 12/19/16 05:02 Promyelocytes # 0.0 K/mm3 12/19/16 05:02 Blast Cells # 0.0 K/mm3 12/19/16 05:02 Pathologist Review 09/13/16 04:00 WBC Morphology Not Reportable 12/19/16 05:02 Hypersegmented Neuts Not Reportable 12/19/16 05:02 Hyposegmented Neuts Not Reportable 12/19/16 05:02 Hypogranular Neuts Not Reportable 12/19/16 05:02 Smudge Cells Not Reportable 12/19/16 05:02 Toxic Granulation Not Reportable 12/19/16 05:02 Toxic Vacuolation Not Reportable 12/19/16 05:02 Dohle Bodies Not Reportable 12/19/16 05:02 Pelger-Huet Anomaly Not Reportable 12/19/16 05:02 Jasmina Rods Not Reportable 12/19/16 05:02 Platelet Estimate Consistent w auto 12/19/16 05:02 Clumped Platelets Not Reportable 12/19/16 05:02 Plt Clumps, EDTA Not Reportable 12/19/16 05:02 Large Platelets Not Reportable 12/19/16 05:02 Giant Platelets Not Reportable 12/19/16 05:02 Platelet Satelliting Not Reportable 12/19/16 05:02 Plt Morphology Comment Not Reportable 12/19/16 05:02 RBC Morphology Not Reportable 12/19/16 05:02 Dimorphic RBCs Not Reportable 12/19/16 05:02 Polychromasia Not Reportable 12/19/16 05:02 Hypochromasia Not Reportable 12/19/16 05:02 Poikilocytosis Not Reportable 12/19/16 05:02 Anisocytosis Not Reportable 12/19/16 05:02 Microcytosis Not Reportable 12/19/16 05:02 Macrocytosis Not Reportable 12/19/16 05:02 Spherocytes Not Reportable 12/19/16 05:02 Pappenheimer Bodies Not Reportable 12/19/16 05:02 Sickle Cells Not Reportable 12/19/16 05:02 Target Cells Few 12/19/16 05:02 Tear Drop Cells Not Reportable 12/19/16 05:02 Ovalocytes Not Reportable 12/19/16 05:02 Stomatocytes Rare 12/03/16 04:00 Helmet Cells Not Reportable 12/19/16 05:02 [place] Bodies Not Reportable 12/19/16 05:02 [place] Rings Not Reportable 12/19/16 05:02 [place] Cells Not Reportable 12/19/16 05:02 Bite Cells Not Reportable 12/19/16 05:02 Crenated Cell Not Reportable 12/19/16 05:02 Elliptocytes Not Reportable 12/19/16 05:02 Acanthocytes (Spur) Not Reportable 12/19/16 05:02 Rouleaux Not Reportable 12/19/16 05:02 Hemoglobin C Crystals Not Reportable 12/19/16 05:02 Schistocytes Not Reportable 12/19/16 05:02 Malaria parasites Not Reportable 12/19/16 05:02 ESR > 140.0 mm/Hr (0-20) 09/08/16 11:48 Jun Bodies Not Reportable 12/19/16 05:02 Hem Pathologist Commnt No 12/19/16 05:02 PT 15.4 Sec. (12.2-14.9) H 01/13/17 15:50 INR 1.16 (0.87-1.13) H 01/13/17 15:50 APTT 33.0 Sec. (24.2-36.6) 10/09/16 03:45 Thrombin Time 16.8 Sec. (15.1-19.6) 09/03/16 00:10 Fibrinogen 750 mg/dl (211-480) H 09/08/16 11:48 Lupus Anticoagulant see below 09/12/16 09:59 LA PTT Baseline See scanned report 09/12/16 09:59 dRVVT Confirm Interp Positive (Negative) H 09/12/16 09:59 dRVVT Screen 50:50 See scanned report 09/12/16 09:59 dRVVT Mix Interpret See scanned report 09/12/16 09:59 Protein C Antigen 122 % (70-140) 09/08/16 15:35 Free Protein S 97 % normal (50-147) 09/08/16 15:35 Total Protein S 109 % (70-140) 09/08/16 15:35 Antithrombin III Ag 100 % (80-120) 09/08/16 15:35 Heparin Anti-Xa, Unfract Negative (Negative) 09/29/16 13:35 Factor V Activity 182 % (65-150) H 09/08/16 15:35 POC ABG pH 7.436 (7.35-7.45) 01/20/17 12: ABG pH 7.450 pH Units (7.350-7.450) 12/05/16 Unknown POC ABG pCO2 35.3 (35-45) 01/20/17 12: ABG pCO2 29.6 mm Hg 12/05/16 Unknown POC ABG pO2 70 (80-105) L 01/20/17 12: ABG pO2 75.2 mm Hg (80.0-90.0) L 12/05/16 Unknown POC ABG HCO3 23.8 01/20/17 12: ABG HCO3 20.1 mmol/L (20.0-26.0) 12/05/16 Unknown POC ABG Total CO2 25 01/20/17 12: POC ABG O2 Sat 94 01/20/17 12: ABG O2 Saturation 96.8 % (95.0-99.0) 12/05/16 Unknown ABG O2 Content 9.9 (0.0-44) 12/05/16 Unknown POC ABG Base Excess 0 01/20/17 12: ABG Base Excess -3.4 mmol/L (-2.0-3.0) L 12/05/16 Unknown ABG Hemoglobin 7.4 gm/dl (12.0-16.0) L 12/05/16 Unknown ABG Carboxyhemoglobin 1.8 % (0.0-5.0) 12/05/16 Unknown ABG Methemoglobin 0.6 % (0.0-1.5) 12/05/16 Unknown Oxyhemoglobin 94.5 % (95.0-99.0) L 12/05/16 Unknown FiO2 30 % 01/20/17 12:17 Sodium 137 mmol/L (137-145) 01/28/17 04:00 Potassium 4.0 mmol/L (3.6-5.0) 01/28/17 04:00 Chloride 99.0 mmol/L (98-107) 01/28/17 04:00 Carbon Dioxide 24 mmol/L (22-30) 01/28/17 04:00 Anion Gap 18 mmol/L 01/28/17 04:00 BUN 55 mg/dL (7-17) H 01/28/17 04:00 Creatinine 1.3 mg/dL (0.7-1.2) H 01/28/17 04:00 Estimated GFR 53 ml/min 01/28/17 04:00 BUN/Creatinine Ratio 42 % 01/28/17 04:00 Glucose 114 mg/dL (65-100) H 01/28/17 04:00 POC Glucose 126 (70-105) H 01/28/17 04:59 Osmolality 351 Mosm/kg 09/16/16 11:47 Lactic Acid 2.30 mmol/L (0.7-2.0) H* 01/09/17 08:22 Calcium 8.6 mg/dL (8.4-10.2) 01/28/17 04:00 Phosphorus 3.30 mg/dL (2.5-4.5) D 01/28/17 04:00 Magnesium 2.00 mg/dL (1.7-2.3) 01/28/17 04:00 Total Bilirubin 0.50 mg/dL (0.1-1.2) 01/28/17 04:00 Direct Bilirubin 0.2 mg/dL (0-0.2) 01/28/17 04:00 Indirect Bilirubin 0.3 mg/dL 01/28/17 04:00 AST 14 units/L (5-40) 01/28/17 04:00 ALT 9 units/L (7-56) 01/28/17 04:00 Alkaline Phosphatase 113 units/L (35-129) 01/28/17 04:00 Ammonia 27.0 umol/L (25-60) 09/07/16 08:37 Lactate Dehydrogenase 170 units/L (91-180) 01/13/17 15:50 Total Creatine Kinase 121 units/L (30-135) 09/29/16 20:12 CK-MB (CK-2) < 1.0 ng/mL (0.0-4.0) 09/29/16 20:12 CK-MB (CK-2) Rel Index 0.8 (0-4) 09/29/16 20:12 Troponin T 0.204 ng/mL (0.00-0.029) H* 09/29/16 20:12 C-Reactive Protein 24.70 mg/dL (0.00-1.30) H 01/09/17 13:30 Total Protein 6.3 g/dL (6.3-8.2) 01/28/17 04:00 Albumin 1.4 g/dL (3.9-5) L 01/28/17 04:00 Albumin/Globulin Ratio 0.3 % 01/28/17 04:00 Prealbumin 0.110 g/L (0.200-0.400) L 12/29/16 05:15 Triglycerides 137 mg/dL (2-149) 09/29/16 20:12 Cholesterol 31 mg/dL (50-199) L 09/29/16 20:12 LDL Cholesterol Direct 4 mg/dL (50-130) L 09/29/16 20:12 HDL Cholesterol 3 mg/dL (40-59) L 09/29/16 20:12 Cholesterol/HDL Ratio 10.33 % 09/29/16 20:12 Angiotensin Convert Enz See scanned report 09/08/16 11:48 Renin 0.99 ng/mL/h (0.25-5.82) 10/07/16 10:56 Aldosterone <1 ng/dL () 10/07/16 10:56 Aldosterone/Renin Dir see below 10/07/16 10:56 Serotonin Release Assay See scanned report 09/29/16 13:35 TSH 1.010 mlU/mL (0.270-4.200) 09/07/16 08:37 HCG, Qual Negative (Negative) 09/03/16 00:10 Urine Color Yellow (Yellow) 11/05/16 13:09 Urine Turbidity Clear (Clear) 11/05/16 13:09 Urine pH 9.0 (5.0-7.0) H 11/05/16 13:09 Ur Specific [place] 1.011 (1.003-1.030) 11/05/16 13:09 Urine Protein 100 mg/dl mg/dL (Negative) 11/05/16 13:09 Urine Glucose (UA) Neg mg/dL (Negative) 11/05/16 13:09 Urine Ketones Neg mg/dL (Negative) 11/05/16 13:09 Urine Blood Neg (Negative) 11/05/16 13:09 Urine Nitrite Neg (Negative) 11/05/16 13:09 Urine Bilirubin Neg (Negative) 11/05/16 13:09 Urine Urobilinogen < 2.0 mg/dL (<2.0) 11/05/16 13:09 Ur Leukocyte Esterase Neg (Negative) 11/05/16 13:09 Urine WBC (Auto) 4.0 /HPF (0.0-6.0) 11/05/16 13:09 Urine RBC (Auto) 1.0 /HPF (0.0-6.0) 11/05/16 13:09 U Epithel Cells (Auto) 1.0 /HPF (0-13.0) 10/07/16 18:30 Urine Bacteria (Auto) 4+ /HPF (Negative) 11/05/16 13:09 Urine WBC Clumps 2+ /HPF 09/07/16 02:47 Hyaline Casts 4 /LPF 09/07/16 02:47 Urine Mucus Few /HPF 10/07/16 18:30 Urine Yeast (Budding) 3+ /HPF 10/07/16 18:30 Urine Eosinophils None seen (None Seen) 09/07/16 16:00 Urine Total Volume 950 11/12/16 10:18 Urine Creatinine 19.7 mg/dL (0.1-20.0) 11/12/16 10:18 Height (in) 65.0 inches 11/12/16 10:18 Weight (lb) 181.0 lbs 11/12/16 10:18 Creatinine Clearance 5 11/12/16 10:18 Urine Sodium 36 mEq/L 09/16/16 19:19 Urine Total Protein 16 mg/dL (5-11.8) H 09/16/16 19:19 Fluid Type Pleural 01/13/17 12:10 Fluid Color Yellow 01/13/17 12:10 Fluid Appearance Hazy 01/13/17 12:10 Fluid WBC 182 /mm3 01/13/17 12:10 Fluid RBC 41 /mm3 01/13/17 12:10 Fluid Seg Neutrophils 85.0 % 01/13/17 12:10 Fluid Lymphocytes 8.0 % 01/13/17 12:10 Fluid Reactive Lymphs 0 % 01/13/17 12:10 Fluid Monocytes 6.0 % 01/13/17 12:10 Fluid Eosinophils 1.0 % 01/13/17 12:10 Fluid Basophils 0 % 01/13/17 12:10 Fluid Total Protein 3.0 (15.0-45.0) L 01/13/17 12:10 Fluid LDH 1322 01/13/17 12:10 Fluid Comment Diff performed 01/13/17 12:10 Vancomycin Trough 2.3 ug/mL (5.0-20.0) L 09/21/16 13:00 Random Vancomycin 16.5 ug/mL (0-40.0) 11/28/16 09:45 Urine Opiates Screen Presumptive negative 09/03/16 15:11 Urine Methadone Screen Presumptive positive 09/03/16 15:11 Ur Barbiturates Screen Presumptive positive 09/03/16 15:11 Ur Phencyclidine Scrn Presumptive negative 09/03/16 15:11 Ur Amphetamines Screen Presumptive negative 09/03/16 15:11 U Benzodiazepines Scrn Presumptive negative 09/03/16 15:11 Urine Cocaine Screen Presumptive negative 09/03/16 15:11 U Marijuana (THC) Screen Presumptive positive 09/03/16 15:11 Drugs of Abuse Note Disclamer 09/03/16 15:11 Rheumatoid Factor 24 IU/ml (0-13) H 09/08/16 11:48 SAHIL Screen Negative (Negative) 09/07/16 09:20 Proteinase 3 (PR3) Ab <1.0 AI (<1.0) 09/07/16 09:20 Myeloperoxidase Ab <1.0 AI (<1.0) 09/07/16 09:20 Sjogren's Antibody <1.0 AI (<1.0) 09/08/16 15:35 Scl-70 Scleroderma Ab <1.0 AI (<1.0) 09/08/16 15:35 Centromere B Antibody <1.0 AI (<1.0) 09/08/16 12:02 Heparin-induced Plt Ab Negative (Negative) 09/29/16 13:35 UF Heparin High Dose 11 % Release 09/29/16 13:35 SUDHIR UFH Low Dose 0.1 6 % Release 09/29/16 13:35 SUDHIR UFH Low Dose 0.5 8 % Release 09/29/16 13:35 Cardiolipid IgG Ab <14 GPL (<=14) 09/12/16 09:59 Cardiolipid IgA Ab <11 APL (<=11) 09/12/16 09:59 Cardiolipid IgM Ab <12 MPL (<=12) 09/12/16 09:59 Complement C3 148 mg/dL (90-180) 09/07/16 09:20 Complement C4 58 mg/dL (16-47) H 09/07/16 09:20 RPR Nonreactive (Nonreactive) 09/08/16 11:48 Hepatitis A IgM Ab Non-reactive (NonReactive) 09/24/16 14:40 Hep Bs Antigen Non-reactive (Negative) 09/24/16 14:40 Hep B Core IgM Ab Non-reactive (NonReactive) 09/24/16 14:40 Hepatitis C Antibody Non-reactive (NonReactive) 09/24/16 14:40 HIV 1&2 Antibody Rapid Non react (Non React) 09/08/16 11:48 HIV P24 Antigen Non react (Non React) 09/08/16 11:48 Miscellaneous Test Flexitest 1 H 01/09/17 18:45 Blood Type A POSITIVE 01/25/17 11:15 Antibody Screen Negative 01/25/17 11:15 DELORIS Antibody Screen Negative 11/24/16 11:20 Crossmatch See Detail 01/25/17 11:15
[2017-01-28] MEDS: DURAGESIC TD SCH (12:59)
[2017-01-28] MEDS: TRANSDERM-SCOP TD SCH (13:00)
--- NOTE | 2017-01-28 16:36 | Progress Note ---
Assessment and Plan Assessment * Oliguric acute kidney injury secondary to ATN on CKD - baseline SCr 1.7mg/dL --24h urine CrCl 5ml/min Sep 24 * Acute CVA - left MCA with midline shift * Atrial fibrillation w/ RVR * Enteric fistula * Acute hypoxic respiratory failure * Sacral decubitus ulcer s/p debridement, wound vac in place * s/p Cardiac arrest * Hx of GI bleed * Left renal artery stenosis * Anemia * Hx of hypertension * s/p Candidemia Plan: * Continue HD MWF. No acute need for HD today * UF as tolerated * Adjust K bath with dialysis * Transfuse pRBC per primary team. Epogen TIW prn * Vent management per pulm/CCM * Pressors prn for MAP>65 * Dose medications for renal function Subjective Date of service: 01/28/17 Principal diagnosis: Acute resp failure on MVS; S/P Acute CVA; Acute Encephalopathy; JUANITA Interval history: No acute events overnight. Objective - Exam Narrative Exam: DEFERRED - Vital Signs Vital signs: Vital Signs - 12hr 01/28/17 01/28/17 01/28/17 04:45 05:00 05:15 Temperature Pulse Rate 106 H 103 H 106 H Pulse Rate [ Anterior Bilateral Throughout] Pulse Rate [ From Monitor] Respiratory 19 22 21 Rate Respiratory Rate [Anterior Bilateral Throughout] Respiratory Rate [ Generalized] Blood Pressure 98/51 94/52 98/49 O2 Sat by Pulse 99 99 99 Oximetry O2 Sat by Pulse Oximetry [ Assessment] 01/28/17 01/28/17 01/28/17 05:30 05:45 06:00 Temperature Pulse Rate 106 H 105 H 105 H Pulse Rate [ Anterior Bilateral Throughout] Pulse Rate [ From Monitor] Respiratory 22 18 20 Rate Respiratory Rate [Anterior Bilateral Throughout] Respiratory Rate [ Generalized] Blood Pressure 93/49 79/48 83/42 O2 Sat by Pulse 98 99 98 Oximetry O2 Sat by Pulse Oximetry [ Assessment] 01/28/17 01/28/17 01/28/17 06:15 06:30 06:45 Temperature Pulse Rate 106 H 109 H 108 H Pulse Rate [ Anterior Bilateral Throughout] Pulse Rate [ From Monitor] Respiratory 19 23 20 Rate Respiratory Rate [Anterior Bilateral Throughout] Respiratory Rate [ Generalized] Blood Pressure 83/41 86/49 89/50 O2 Sat by Pulse 98 99 100 Oximetry O2 Sat by Pulse Oximetry [ Assessment] 01/28/17 01/28/17 01/28/17 07:00 07:16 07:30 Temperature Pulse Rate 109 H 113 H 105 H Pulse Rate [ Anterior Bilateral Throughout] Pulse Rate [ From Monitor] Respiratory 20 20 21 Rate Respiratory Rate [Anterior Bilateral Throughout] Respiratory Rate [ Generalized] Blood Pressure 96/45 87/47 96/48 O2 Sat by Pulse 100 100 100 Oximetry O2 Sat by Pulse Oximetry [ Assessment] 01/28/17 01/28/17 01/28/17 07:45 08:00 08:14 Temperature 98.3 F Pulse Rate 109 H 107 H 112 H Pulse Rate [ Anterior Bilateral Throughout] Pulse Rate [ 107 H From Monitor] Respiratory 20 20 Rate Respiratory Rate [Anterior Bilateral Throughout] Respiratory Rate [ Generalized] Blood Pressure 92/51 91/43 102/50 O2 Sat by Pulse 99 99 99 Oximetry O2 Sat by Pulse Oximetry [ Assessment] 01/28/17 01/28/17 01/28/17 08:15 08:20 08:30 Temperature Pulse Rate 107 H 109 H Pulse Rate [ 103 H Anterior Bilateral Throughout] Pulse Rate [ From Monitor] Respiratory 19 12 Rate Respiratory 21 Rate [Anterior Bilateral Throughout] Respiratory Rate [ Generalized] Blood Pressure 102/50 93/47 O2 Sat by Pulse 99 98 Oximetry O2 Sat by Pulse Oximetry [ Assessment] 01/28/17 01/28/17 01/28/17 08:38 08:45 09:00 Temperature Pulse Rate 112 H 111 H Pulse Rate [ 115 H Anterior Bilateral Throughout] Pulse Rate [ From Monitor] Respiratory 22 22 Rate Respiratory 22 Rate [Anterior Bilateral Throughout] Respiratory Rate [ Generalized] Blood Pressure 92/42 91/43 O2 Sat by Pulse 99 99 Oximetry O2 Sat by Pulse Oximetry [ Assessment] 01/28/17 01/28/17 01/28/17 09:15 09:30 09:45 Temperature Pulse Rate 108 H 110 H 107 H Pulse Rate [ Anterior Bilateral Throughout] Pulse Rate [ From Monitor] Respiratory 22 25 H 20 Rate Respiratory Rate [Anterior Bilateral Throughout] Respiratory Rate [ Generalized] Blood Pressure 92/40 85/38 87/41 O2 Sat by Pulse 99 99 99 Oximetry O2 Sat by Pulse Oximetry [ Assessment] 01/28/17 01/28/17 01/28/17 10:00 10:15 10:30 Temperature Pulse Rate 112 H 115 H 114 H Pulse Rate [ Anterior Bilateral Throughout] Pulse Rate [ From Monitor] Respiratory 17 20 25 H Rate Respiratory Rate [Anterior Bilateral Throughout] Respiratory 26 H Rate [ Generalized] Blood Pressure 92/47 94/53 99/46 O2 Sat by Pulse 99 99 99 Oximetry O2 Sat by Pulse Oximetry [ Assessment] 01/28/17 01/28/17 01/28/17 10:36 10:45 11:00 Temperature Pulse Rate 114 H 114 H 109 H Pulse Rate [ Anterior Bilateral Throughout] Pulse Rate [ From Monitor] Respiratory 20 24 Rate Respiratory Rate [Anterior Bilateral Throughout] Respiratory Rate [ Generalized] Blood Pressure 99/46 97/51 97/48 O2 Sat by Pulse 99 99 Oximetry O2 Sat by Pulse Oximetry [ Assessment] 01/28/17 01/28/17 01/28/17 11:15 11:30 11:45 Temperature Pulse Rate 102 H 102 H 99 H Pulse Rate [ Anterior Bilateral Throughout] Pulse Rate [ From Monitor] Respiratory 21 20 18 Rate Respiratory Rate [Anterior Bilateral Throughout] Respiratory Rate [ Generalized] Blood Pressure 89/45 95/45 88/45 O2 Sat by Pulse 99 99 99 Oximetry O2 Sat by Pulse Oximetry [ Assessment] 01/28/17 01/28/17 01/28/17 11:53 12:00 12:15 Temperature 98.0 F Pulse Rate 105 H 105 H 102 H Pulse Rate [ Anterior Bilateral Throughout] Pulse Rate [ 105 H From Monitor] Respiratory 20 19 Rate Respiratory Rate [Anterior Bilateral Throughout] Respiratory Rate [ Generalized] Blood Pressure 88/45 91/52 91/50 O2 Sat by Pulse 99 99 98 Oximetry O2 Sat by Pulse Oximetry [ Assessment] 01/28/17 01/28/17 01/28/17 12:30 13:01 13:02 Temperature Pulse Rate 103 H 105 H 105 H Pulse Rate [ Anterior Bilateral Throughout] Pulse Rate [ From Monitor] Respiratory 22 Rate Respiratory Rate [Anterior Bilateral Throughout] Respiratory Rate [ Generalized] Blood Pressure 94/49 89/51 95/45 O2 Sat by Pulse 99 Oximetry O2 Sat by Pulse Oximetry [ Assessment] 01/28/17 01/28/17 01/28/17 14:00 14:13 16:00 Temperature 99.3 F Pulse Rate Pulse Rate [ 108 H 101 H Anterior Bilateral Throughout] Pulse Rate [ From Monitor] Respiratory Rate Respiratory 21 23 Rate [Anterior Bilateral Throughout] Respiratory Rate [ Generalized] Blood Pressure O2 Sat by Pulse Oximetry O2 Sat by Pulse Oximetry [ Assessment] 01/28/17 01/28/17 16:08 16:09 Temperature Pulse Rate 116 H Pulse Rate [ Anterior Bilateral Throughout] Pulse Rate [ From Monitor] Respiratory Rate Respiratory Rate [Anterior Bilateral Throughout] Respiratory Rate [ Generalized] Blood Pressure 98/47 O2 Sat by Pulse 99 Oximetry O2 Sat by Pulse 99 Oximetry [ Assessment] - Lab 01/28/17 04:00 01/28/17 04:00 Most recent lab results ABG pH 7.450 pH Units (7.350-7.450) 12/05/16 Unknown ABG pCO2 29.6 mm Hg 12/05/16 Unknown ABG pO2 75.2 mm Hg (80.0-90.0) L 12/05/16 Unknown ABG HCO3 20.1 mmol/L (20.0-26.0) 12/05/16 Unknown ABG O2 Saturation 96.8 % (95.0-99.0) 12/05/16 Unknown Calcium 8.6 mg/dL (8.4-10.2) 01/28/17 04:00 Phosphorus 3.30 mg/dL (2.5-4.5) D 01/28/17 04:00 Magnesium 2.00 mg/dL (1.7-2.3) 01/28/17 04:00 Urine Creatinine 19.7 mg/dL (0.1-20.0) 11/12/16 10:18 Urine Sodium 36 mEq/L 09/16/16 19:19 Urine Total Protein 16 mg/dL (5-11.8) H 09/16/16 19:19
[2017-01-28] MEDS ORDERED: TPN ADULT IV SCH (20:00)
[2017-01-29] MEDS: DUONEB *Not for PRN Use IH SCH ×4 (02:15→19:23)
[2017-01-29] MEDS: LOPRESSOR PO SCH ×6 (05:39→18:36)
[2017-01-29] MEDS: REGLAN IV SCH ×3 (05:40→22:07)
[2017-01-29] MEDS: HumuLIN R SUB-Q SCH ×4 (05:43→18:23)
[2017-01-29] MEDS: APRESOLINE PO SCH ×3 (05:43→22:09)
[2017-01-29 06:05] LABS: BUN/Creatinine Ratio TNR; Blood Urea Nitrogen TNR mg/dL (7-17)
[2017-01-29 06:06] LABS: Calcium TNR mg/dL (8.4-10.2); Hemolysis Index TNR
[2017-01-29 07:03] LABS: Calcium 9.1 mg/dL (8.4-10.2)
[2017-01-29] MEDS: HEPARIN SUB-Q SCH ×2 (10:06→22:08)
[2017-01-29] MEDS: ROBINUL PO SCH ×2 (10:06→22:07)
[2017-01-29] MEDS: PROTONIX FEEDTUBE SCH (10:06)
[2017-01-29] MEDS: NORVASC PO SCH (10:07)
[2017-01-29] MEDS: MERREM IV SCH (10:17)
[2017-01-29] MEDS: NACL 0.9% IV SCH (10:17)
--- NOTE | 2017-01-29 12:00 | Progress Note ---
Assessment and Plan Acute Hypoxemic Respiratory Failure (now with exacerbation and back on MVS) Hypertension (unable to receive p.o. meds) Atrial Fibrillation with RVR s/p tracheostomy Acute encephalopathy s/p CVA Oropharyngeal dysphagia Enterococcal bacteremia sepsis syndrome Sacral Decubitus Ulcer (s/p surgical debridement) Anemia Obesity JUANITA now on hemodialysis Enteric [place]ist[place] (spoke with her brother yesterday who states that he had a family discussion with her kids and they are not yet ready to give up on their mother) - continue to hold tube feeds due to persistent emesis; continue reglan at 5mg IV q6h - IR consulted for G-J tube - no indication for chest tube placement - continue fentanyl patch for pain issues especially s/p debridement - continue wound care per WCT and RN's (she is s/p surgical debridement) - continue anti-infectives per ID recs - prn CRP & lactate levels if clinically indicated (Follow WBC also) - keep on with daily PSV trials and / or T-piece as tolerated (Tolerated only 5 minutes today) - continue TPN administration - continue scopolamine for secretion control - continue to wean FiO2 for sats > 94% - continue bronchodilators and pulmonary toilet - VAP bundle addressed - continue prn IV metorolol - continue metoprolol and amlodipine (hold for hypotension) - continue to follow electrolytes and correct as necessary - continue GI & VTE prophylaxis - Continue flu & pneumovax per protocol - ethics consult placed and pending .....she remains critically ill on life sustaining interventions including MVS and at risk for further deterioration including ....34' CCT today without overlap ....care plan discussed at length during team rounds ...intermediate prognosis remains guarded and this has intermittently been conveyed to family Subjective Date of service: 01/29/17 Principal diagnosis: Acute resp failure on MVS; S/P Acute CVA; Acute Encephalopathy; JUANITA Interval history: Patient is seen today for: Acute resp failure on MVS; S/P Acute CVA; Acute Encephalopathy; JUANITA Seen and examined at bedside; 24hour events reviewed; nursing and respiratory care staff consulted; no adverse overnight events reported to me; silvia remains critically ill and is still not tolerating weaning well; no new issues otherwise Objective Vital Signs - 12hr 01/29/17 01/29/17 01/29/17 00:00 00:16 00:30 Temperature Pulse Rate 115 H 126 H 102 H Pulse Rate [ Anterior Bilateral Throughout] Pulse Rate [ 118 H From Monitor] Respiratory 19 19 15 Rate Respiratory Rate [Anterior Bilateral Throughout] Blood Pressure 108/60 133/72 135/75 O2 Sat by Pulse 98 99 99 Oximetry O2 Sat by Pulse Oximetry [ Assessment] 01/29/17 01/29/17 01/29/17 00:45 01:00 01:15 Temperature Pulse Rate 95 H 92 H 92 H Pulse Rate [ Anterior Bilateral Throughout] Pulse Rate [ From Monitor] Respiratory 22 16 20 Rate Respiratory Rate [Anterior Bilateral Throughout] Blood Pressure 120/68 118/71 117/71 O2 Sat by Pulse 99 99 97 Oximetry O2 Sat by Pulse Oximetry [ Assessment] 01/29/17 01/29/17 01/29/17 01:30 01:45 02:00 Temperature Pulse Rate 89 92 H 93 H Pulse Rate [ Anterior Bilateral Throughout] Pulse Rate [ From Monitor] Respiratory 16 18 17 Rate Respiratory Rate [Anterior Bilateral Throughout] Blood Pressure 117/71 120/78 121/74 O2 Sat by Pulse 100 100 100 Oximetry O2 Sat by Pulse Oximetry [ Assessment] 01/29/17 01/29/17 01/29/17 02:15 02:30 02:44 Temperature Pulse Rate 94 H 91 H Pulse Rate [ 94 H 96 H Anterior Bilateral Throughout] Pulse Rate [ From Monitor] Respiratory 25 H 26 H Rate Respiratory 17 17 Rate [Anterior Bilateral Throughout] Blood Pressure 123/78 115/73 O2 Sat by Pulse 100 98 Oximetry O2 Sat by Pulse 100 Oximetry [ Assessment] 01/29/17 01/29/17 01/29/17 02:45 03:00 03:15 Temperature Pulse Rate 93 H 93 H 93 H Pulse Rate [ Anterior Bilateral Throughout] Pulse Rate [ From Monitor] Respiratory 15 17 16 Rate Respiratory Rate [Anterior Bilateral Throughout] Blood Pressure 116/68 122/77 128/79 O2 Sat by Pulse 100 100 100 Oximetry O2 Sat by Pulse Oximetry [ Assessment] 01/29/17 01/29/17 01/29/17 03:30 03:44 03:45 Temperature 99.1 F Pulse Rate 94 H 94 H Pulse Rate [ Anterior Bilateral Throughout] Pulse Rate [ From Monitor] Respiratory 19 15 Rate Respiratory Rate [Anterior Bilateral Throughout] Blood Pressure 122/75 111/66 O2 Sat by Pulse 100 100 Oximetry O2 Sat by Pulse Oximetry [ Assessment] 01/29/17 01/29/17 01/29/17 04:00 04:15 04:30 Temperature Pulse Rate 94 H 95 H 100 H Pulse Rate [ Anterior Bilateral Throughout] Pulse Rate [ 98 H From Monitor] Respiratory 19 13 21 Rate Respiratory Rate [Anterior Bilateral Throughout] Blood Pressure 110/64 111/69 111/69 O2 Sat by Pulse 97 100 100 Oximetry O2 Sat by Pulse Oximetry [ Assessment] 01/29/17 01/29/17 01/29/17 04:46 05:00 05:09 Temperature Pulse Rate 103 H 106 H 103 H Pulse Rate [ Anterior Bilateral Throughout] Pulse Rate [ From Monitor] Respiratory 18 25 H Rate Respiratory Rate [Anterior Bilateral Throughout] Blood Pressure 111/69 111/69 111/69 O2 Sat by Pulse 98 99 99 Oximetry O2 Sat by Pulse Oximetry [ Assessment] 01/29/17 01/29/17 01/29/17 05:15 05:30 05:39 Temperature Pulse Rate 96 H 90 99 H Pulse Rate [ Anterior Bilateral Throughout] Pulse Rate [ From Monitor] Respiratory 18 17 Rate Respiratory Rate [Anterior Bilateral Throughout] Blood Pressure 113/73 111/71 113/72 O2 Sat by Pulse 98 97 Oximetry O2 Sat by Pulse Oximetry [ Assessment] 01/29/17 01/29/17 01/29/17 05:43 05:45 06:00 Temperature Pulse Rate 90 87 82 Pulse Rate [ Anterior Bilateral Throughout] Pulse Rate [ From Monitor] Respiratory 17 19 Rate Respiratory Rate [Anterior Bilateral Throughout] Blood Pressure 111/71 118/76 116/72 O2 Sat by Pulse 98 98 Oximetry O2 Sat by Pulse Oximetry [ Assessment] 01/29/17 01/29/17 01/29/17 06:15 06:30 06:45 Temperature Pulse Rate 79 77 80 Pulse Rate [ Anterior Bilateral Throughout] Pulse Rate [ From Monitor] Respiratory 15 17 17 Rate Respiratory Rate [Anterior Bilateral Throughout] Blood Pressure 117/69 109/70 121/78 O2 Sat by Pulse 98 98 98 Oximetry O2 Sat by Pulse Oximetry [ Assessment] 01/29/17 01/29/17 01/29/17 07:00 07:15 07:30 Temperature Pulse Rate 80 78 79 Pulse Rate [ Anterior Bilateral Throughout] Pulse Rate [ From Monitor] Respiratory 14 15 17 Rate Respiratory Rate [Anterior Bilateral Throughout] Blood Pressure 132/82 115/70 118/78 O2 Sat by Pulse 100 99 99 Oximetry O2 Sat by Pulse Oximetry [ Assessment] 01/29/17 01/29/17 01/29/17 07:45 08:00 08:05 Temperature Pulse Rate 78 79 80 Pulse Rate [ 79 Anterior Bilateral Throughout] Pulse Rate [ 79 From Monitor] Respiratory 15 23 Rate Respiratory 15 Rate [Anterior Bilateral Throughout] Blood Pressure 124/70 115/65 115/65 O2 Sat by Pulse 99 84 100 Oximetry O2 Sat by Pulse Oximetry [ Assessment] 01/29/17 01/29/17 08:19 11:36 Temperature Pulse Rate 80 Pulse Rate [ 80 Anterior Bilateral Throughout] Pulse Rate [ From Monitor] Respiratory Rate Respiratory 21 Rate [Anterior Bilateral Throughout] Blood Pressure 126/81 O2 Sat by Pulse 100 Oximetry O2 Sat by Pulse Oximetry [ Assessment] Constitutional: appears uncomfortable, other (not tracking) Eyes: non-icteric, other (tracheostomy tube in midline of neck) ENT: oropharynx moist, oropharyngeal exudate pre Neck: supple, no lymphadenopathy, no JVD, other (no thyromegaly) Effort: mildly labored Ascultation: Bilateral: diminished breath sounds (right base), rhonchi (and referred upper airway sounds) Percussion: Right: dull (base), Bilateral: not dull Cardiovascular: regular rate and rhythm, other (no rubs / murmurs) Gastrointestinal: hypoactive bowel sounds, soft, non-tender, non-distended, other (RLQ & LUQ stomas with colostomy bags) Integumentary: decubitus ulcer (sacral; stage 4 s/p surgical debridement), other (no rash; no cellulitis; poor turgor) Extremities: no cyanosis, pulses normal, no ischemia or petechiae, edema (1+ bilaterally) Neurologic: pupils equal and round, unable to assess, other (encephalopathic) Psychiatric: other (unable to assess) CBC and BMP: 02/02/17 10:16 02/04/17 04:00 ABG, PT/INR, D-dimer: ABG POC ABG pH 7.436 (7.35-7.45) 01/20/17 12:17 ABG pH 7.450 pH Units (7.350-7.450) 12/05/16 Unknown POC ABG pCO2 35.3 (35-45) 01/20/17 12:17 ABG pCO2 29.6 mm Hg 12/05/16 Unknown POC ABG pO2 70 (80-105) L 01/20/17 12:17 ABG pO2 75.2 mm Hg (80.0-90.0) L 12/05/16 Unknown POC ABG HCO3 23.8 01/20/17 12:17 POC ABG Total CO2 25 01/20/17 12:17 POC ABG O2 Sat 94 01/20/17 12:17 ABG O2 Saturation 96.8 % (95.0-99.0) 12/05/16 Unknown PT/INR, D-dimer PT 15.4 Sec. (12.2-14.9) H 01/13/17 15:50 INR 1.16 (0.87-1.13) H 01/13/17 15:50 Abnormal lab findings: Abnormal Labs 09/03/16 09/03/16 09/03/16 00:03 00:10 00:10 WBC 13.9 H RBC 5.95 H Hgb Hct 44.0 H MCV 74 L MCH 22 L MCHC RDW 17.5 H Plt Count Lymph % (Auto) [place] % (Auto) Lymph # [place] # Baso # Seg Neutrophils % Seg Neuts % (Manual) Lymphocytes % (Manual) 54.0 H Monocytes % (Manual) Eosinophils % (Manual) Basophils % (Manual) Nucleated RBC % Seg Neutrophils # Seg Neutrophils # Man Lymphocytes # (Manual) 7.5 H Monocytes # (Manual) Eosinophils # (Manual) Basophils # (Manual) PT INR Fibrinogen dRVVT Confirm Interp Factor V Activity POC ABG pH POC ABG pCO2 POC ABG pO2 ABG pO2 ABG HCO3 ABG Base Excess ABG Hemoglobin Oxyhemoglobin Sodium Potassium 2.8 L* Chloride Carbon Dioxide 21 L BUN Creatinine 1.7 H Glucose 159 H POC Glucose 177 H Lactic Acid Calcium Phosphorus Magnesium Direct Bilirubin AST ALT Alkaline Phosphatase Lactate Dehydrogenase Troponin T C-Reactive Protein Total Protein Albumin Prealbumin Triglycerides Cholesterol LDL Cholesterol Direct HDL Cholesterol Urine pH Urine WBC (Auto) Urine Creatinine Urine Total Protein Fluid Total Protein Vancomycin Trough Rheumatoid Factor Complement C4 Miscellaneous Test Crossmatch 09/03/16 09/03/16 09/03/16 12:12 15:07 16:20 WBC RBC Hgb Hct MCV MCH MCHC RDW Plt Count Lymph % (Auto) [place] % (Auto) Lymph # [place] # Baso # Seg Neutrophils % Seg Neuts % (Manual) Lymphocytes % (Manual) Monocytes % (Manual) Eosinophils % (Manual) Basophils % (Manual) Nucleated RBC % Seg Neutrophils # Seg Neutrophils # Man Lymphocytes # (Manual) Monocytes # (Manual) Eosinophils # (Manual) Basophils # (Manual) PT INR Fibrinogen dRVVT Confirm Interp Factor V Activity POC ABG pH 7.452 H POC ABG pCO2 POC ABG pO2 ABG pO2 ABG HCO3 ABG Base Excess ABG Hemoglobin Oxyhemoglobin Sodium Potassium Chloride Carbon Dioxide BUN Creatinine Glucose POC Glucose 178 H Lactic Acid Calcium Phosphorus 2.20 L Magnesium 1.60 L Direct Bilirubin AST ALT Alkaline Phosphatase Lactate Dehydrogenase Troponin T C-Reactive Protein Total Protein Albumin Prealbumin Triglycerides Cholesterol LDL Cholesterol Direct HDL Cholesterol Urine pH Urine WBC (Auto) Urine Creatinine Urine Total Protein Fluid Total Protein Vancomycin Trough Rheumatoid Factor Complement C4 Miscellaneous Test Crossmatch 09/03/16 09/03/16 09/03/16 17:57 17:58 23:50 WBC RBC Hgb Hct MCV MCH MCHC RDW Plt Count Lymph % (Auto) [place] % (Auto) Lymph # [place] # Baso # Seg Neutrophils % Seg Neuts % (Manual) Lymphocytes % (Manual) Monocytes % (Manual) Eosinophils % (Manual) Basophils % (Manual) Nucleated RBC % Seg Neutrophils # Seg Neutrophils # Man Lymphocytes # (Manual) Monocytes # (Manual) Eosinophils # (Manual) Basophils # (Manual) PT INR Fibrinogen dRVVT Confirm Interp Factor V Activity POC ABG pH POC ABG pCO2 POC ABG pO2 ABG pO2 ABG HCO3 ABG Base Excess ABG Hemoglobin Oxyhemoglobin Sodium Potassium Chloride Carbon Dioxide BUN Creatinine Glucose POC Glucose 162 H 145 H Lactic Acid Calcium Phosphorus 2.30 L Magnesium Direct Bilirubin AST ALT Alkaline Phosphatase Lactate Dehydrogenase Troponin T C-Reactive Protein Total Protein Albumin Prealbumin Triglycerides Cholesterol LDL Cholesterol Direct HDL Cholesterol Urine pH Urine WBC (Auto) Urine Creatinine Urine Total Protein Fluid Total Protein Vancomycin Trough Rheumatoid Factor Complement C4 Miscellaneous Test Crossmatch 09/04/16 09/04/16 09/04/16 03:31 03:31 05:42 WBC RBC Hgb 9.7 L D Hct MCV 72 L MCH 23 L MCHC RDW 17.5 H Plt Count Lymph % (Auto) 11.1 L [place] % (Auto) Lymph # [place] # Baso # Seg Neutrophils % 84.3 H Seg Neuts % (Manual) Lymphocytes % (Manual) Monocytes % (Manual) Eosinophils % (Manual) Basophils % (Manual) Nucleated RBC % Seg Neutrophils # 8.9 H Seg Neutrophils # Man Lymphocytes # (Manual) Monocytes # (Manual) Eosinophils # (Manual) Basophils # (Manual) PT INR Fibrinogen dRVVT Confirm Interp Factor V Activity POC ABG pH POC ABG pCO2 POC ABG pO2 ABG pO2 ABG HCO3 ABG Base Excess ABG Hemoglobin Oxyhemoglobin Sodium 135 L Potassium 2.9 L* Chloride 97.2 L Carbon Dioxide 19 L BUN Creatinine 1.7 H Glucose 170 H POC Glucose 152 H Lactic Acid Calcium Phosphorus Magnesium Direct Bilirubin AST ALT Alkaline Phosphatase Lactate Dehydrogenase Troponin T C-Reactive Protein Total Protein Albumin Prealbumin Triglycerides 160 H Cholesterol LDL Cholesterol Direct HDL Cholesterol 31 L Urine pH Urine WBC (Auto) Urine Creatinine Urine Total Protein Fluid Total Protein Vancomycin Trough Rheumatoid Factor Complement C4 Miscellaneous Test Crossmatch 09/04/16 09/04/16 09/04/16 11:34 17:46 23:29 WBC RBC Hgb Hct MCV MCH MCHC RDW Plt Count Lymph % (Auto) [place] % (Auto) Lymph # [place] # Baso # Seg Neutrophils % Seg Neuts % (Manual) Lymphocytes % (Manual) Monocytes % (Manual) Eosinophils % (Manual) Basophils % (Manual) Nucleated RBC % Seg Neutrophils # Seg Neutrophils # Man Lymphocytes # (Manual) Monocytes # (Manual) Eosinophils # (Manual) Basophils # (Manual) PT INR Fibrinogen dRVVT Confirm Interp Factor V Activity POC ABG pH POC ABG pCO2 POC ABG pO2 ABG pO2 ABG HCO3 ABG Base Excess ABG Hemoglobin Oxyhemoglobin Sodium Potassium Chloride Carbon Dioxide BUN Creatinine Glucose POC Glucose 165 H 210 H 139 H Lactic Acid Calcium Phosphorus Magnesium Direct Bilirubin AST ALT Alkaline Phosphatase Lactate Dehydrogenase Troponin T C-Reactive Protein Total Protein Albumin Prealbumin Triglycerides Cholesterol LDL Cholesterol Direct HDL Cholesterol Urine pH Urine WBC (Auto) Urine Creatinine Urine Total Protein Fluid Total Protein Vancomycin Trough Rheumatoid Factor Complement C4 Miscellaneous Test Crossmatch 09/05/16 09/05/16 09/05/16 04:05 04:05 05:38 WBC RBC Hgb Hct MCV 76 L D MCH 23 L MCHC RDW 17.8 H Plt Count Lymph % (Auto) [place] % (Auto) Lymph # [place] # Baso # Seg Neutrophils % Seg Neuts % (Manual) Lymphocytes % (Manual) Monocytes % (Manual) Eosinophils % (Manual) Basophils % (Manual) Nucleated RBC % Seg Neutrophils # Seg Neutrophils # Man Lymphocytes # (Manual) Monocytes # (Manual) Eosinophils # (Manual) Basophils # (Manual) PT INR Fibrinogen dRVVT Confirm Interp Factor V Activity POC ABG pH POC ABG pCO2 POC ABG pO2 ABG pO2 ABG HCO3 ABG Base Excess ABG Hemoglobin Oxyhemoglobin Sodium 134 L Potassium Chloride Carbon Dioxide 18 L BUN Creatinine 1.8 H Glucose 192 H POC Glucose 175 H Lactic Acid Calcium Phosphorus Magnesium Direct Bilirubin AST ALT Alkaline Phosphatase Lactate Dehydrogenase Troponin T C-Reactive Protein Total Protein Albumin Prealbumin Triglycerides Cholesterol LDL Cholesterol Direct HDL Cholesterol Urine pH Urine WBC (Auto) Urine Creatinine Urine Total Protein Fluid Total Protein Vancomycin Trough Rheumatoid Factor Complement C4 Miscellaneous Test Crossmatch 09/05/16 09/05/16 09/05/16 11:38 17:48 23:22 WBC RBC Hgb Hct MCV MCH MCHC RDW Plt Count Lymph % (Auto) [place] % (Auto) Lymph # [place] # Baso # Seg Neutrophils % Seg Neuts % (Manual) Lymphocytes % (Manual) Monocytes % (Manual) Eosinophils % (Manual) Basophils % (Manual) Nucleated RBC % Seg Neutrophils # Seg Neutrophils # Man Lymphocytes # (Manual) Monocytes # (Manual) Eosinophils # (Manual) Basophils # (Manual) PT INR Fibrinogen dRVVT Confirm Interp Factor V Activity POC ABG pH POC ABG pCO2 POC ABG pO2 ABG pO2 ABG HCO3 ABG Base Excess ABG Hemoglobin Oxyhemoglobin Sodium Potassium Chloride Carbon Dioxide BUN Creatinine Glucose POC Glucose 164 H 186 H 195 H Lactic Acid Calcium Phosphorus Magnesium Direct Bilirubin AST ALT Alkaline Phosphatase Lactate Dehydrogenase Troponin T C-Reactive Protein Total Protein Albumin Prealbumin Triglycerides Cholesterol LDL Cholesterol Direct HDL Cholesterol Urine pH Urine WBC (Auto) Urine Creatinine Urine Total Protein Fluid Total Protein Vancomycin Trough Rheumatoid Factor Complement C4 Miscellaneous Test Crossmatch 09/06/16 09/06/16 09/06/16 04:12 05:59 07:32 WBC RBC Hgb Hct MCV MCH MCHC RDW Plt Count Lymph % (Auto) [place] % (Auto) Lymph # [place] # Baso # Seg Neutrophils % Seg Neuts % (Manual) Lymphocytes % (Manual) Monocytes % (Manual) Eosinophils % (Manual) Basophils % (Manual) Nucleated RBC % Seg Neutrophils # Seg Neutrophils # Man Lymphocytes # (Manual) Monocytes # (Manual) Eosinophils # (Manual) Basophils # (Manual) PT INR Fibrinogen dRVVT Confirm Interp Factor V Activity POC ABG pH 7.514 H POC ABG pCO2 29.1 L POC ABG pO2 72 L ABG pO2 ABG HCO3 ABG Base Excess ABG Hemoglobin Oxyhemoglobin Sodium 133 L Potassium 3.4 L Chloride 94.9 L Carbon Dioxide 19 L BUN 30 H Creatinine 2.1 H Glucose 139 H POC Glucose 146 H Lactic Acid Calcium Phosphorus Magnesium Direct Bilirubin AST ALT Alkaline Phosphatase Lactate Dehydrogenase Troponin T C-Reactive Protein Total Protein Albumin Prealbumin Triglycerides Cholesterol LDL Cholesterol Direct HDL Cholesterol Urine pH Urine WBC (Auto) Urine Creatinine Urine Total Protein Fluid Total Protein Vancomycin Trough Rheumatoid Factor Complement C4 Miscellaneous Test Crossmatch 09/06/16 09/06/16 09/06/16 11:57 17:58 19:02 WBC RBC Hgb Hct MCV MCH MCHC RDW Plt Count Lymph % (Auto) [place] % (Auto) Lymph # [place] # Baso # Seg Neutrophils % Seg Neuts % (Manual) Lymphocytes % (Manual) Monocytes % (Manual) Eosinophils % (Manual) Basophils % (Manual) Nucleated RBC % Seg Neutrophils # Seg Neutrophils # Man Lymphocytes # (Manual) Monocytes # (Manual) Eosinophils # (Manual) Basophils # (Manual) PT INR Fibrinogen dRVVT Confirm Interp Factor V Activity POC ABG pH 7.465 H POC ABG pCO2 32.0 L POC ABG pO2 ABG pO2 ABG HCO3 ABG Base Excess ABG Hemoglobin Oxyhemoglobin Sodium Potassium Chloride Carbon Dioxide BUN Creatinine Glucose POC Glucose 165 H 160 H Lactic Acid Calcium Phosphorus Magnesium Direct Bilirubin AST ALT Alkaline Phosphatase Lactate Dehydrogenase Troponin T C-Reactive Protein Total Protein Albumin Prealbumin Triglycerides Cholesterol LDL Cholesterol Direct HDL Cholesterol Urine pH Urine WBC (Auto) Urine Creatinine Urine Total Protein Fluid Total Protein Vancomycin Trough Rheumatoid Factor Complement C4 Miscellaneous Test Crossmatch 09/06/16 09/07/16 09/07/16 23:45 02:47 02:47 WBC RBC Hgb Hct MCV MCH MCHC RDW Plt Count Lymph % (Auto) [place] % (Auto) Lymph # [place] # Baso # Seg Neutrophils % Seg Neuts % (Manual) Lymphocytes % (Manual) Monocytes % (Manual) Eosinophils % (Manual) Basophils % (Manual) Nucleated RBC % Seg Neutrophils # Seg Neutrophils # Man Lymphocytes # (Manual) Monocytes # (Manual) Eosinophils # (Manual) Basophils # (Manual) PT INR Fibrinogen dRVVT Confirm Interp Factor V Activity POC ABG pH POC ABG pCO2 POC ABG pO2 ABG pO2 ABG HCO3 ABG Base Excess ABG Hemoglobin Oxyhemoglobin Sodium Potassium Chloride Carbon Dioxide BUN Creatinine Glucose POC Glucose 204 H Lactic Acid Calcium Phosphorus Magnesium Direct Bilirubin AST ALT Alkaline Phosphatase Lactate Dehydrogenase Troponin T C-Reactive Protein Total Protein Albumin Prealbumin Triglycerides Cholesterol LDL Cholesterol Direct HDL Cholesterol Urine pH Urine WBC (Auto) 68.0 H Urine Creatinine 106.1 H Urine Total Protein Fluid Total Protein Vancomycin Trough Rheumatoid Factor Complement C4 Miscellaneous Test Crossmatch 09/07/16 09/07/16 09/07/16 04:50 06:19 06:39 WBC RBC Hgb Hct MCV MCH MCHC RDW Plt Count Lymph % (Auto) [place] % (Auto) Lymph # [place] # Baso # Seg Neutrophils % Seg Neuts % (Manual) Lymphocytes % (Manual) Monocytes % (Manual) Eosinophils % (Manual) Basophils % (Manual) Nucleated RBC % Seg Neutrophils # Seg Neutrophils # Man Lymphocytes # (Manual) Monocytes # (Manual) Eosinophils # (Manual) Basophils # (Manual) PT INR Fibrinogen dRVVT Confirm Interp Factor V Activity POC ABG pH 7.457 H POC ABG pCO2 32.1 L POC ABG pO2 76 L ABG pO2 ABG HCO3 ABG Base Excess ABG Hemoglobin Oxyhemoglobin Sodium 132 L Potassium Chloride 94.7 L Carbon Dioxide BUN 53 H Creatinine 2.9 H Glucose 151 H POC Glucose 149 H Lactic Acid Calcium Phosphorus Magnesium Direct Bilirubin AST ALT Alkaline Phosphatase Lactate Dehydrogenase Troponin T C-Reactive Protein Total Protein Albumin Prealbumin Triglycerides Cholesterol LDL Cholesterol Direct HDL Cholesterol Urine pH Urine WBC (Auto) Urine Creatinine Urine Total Protein Fluid Total Protein Vancomycin Trough Rheumatoid Factor Complement C4 Miscellaneous Test Crossmatch 09/07/16 09/07/16 09/07/16 09:20 11:43 11:43 WBC 19.4 H RBC Hgb 8.3 L Hct 26.4 L D MCV 72 L D MCH 22 L MCHC RDW 17.9 H Plt Count Lymph % (Auto) 8.5 L [place] % (Auto) Lymph # [place] # 1.0 H Baso # Seg Neutrophils % 85.8 H Seg Neuts % (Manual) Lymphocytes % (Manual) Monocytes % (Manual) Eosinophils % (Manual) Basophils % (Manual) Nucleated RBC % Seg Neutrophils # 16.6 H Seg Neutrophils # Man Lymphocytes # (Manual) Monocytes # (Manual) Eosinophils # (Manual) Basophils # (Manual) PT INR Fibrinogen dRVVT Confirm Interp Factor V Activity POC ABG pH POC ABG pCO2 POC ABG pO2 ABG pO2 ABG HCO3 ABG Base Excess ABG Hemoglobin Oxyhemoglobin Sodium 134 L Potassium Chloride 97.2 L Carbon Dioxide 20 L BUN 58 H Creatinine 2.9 H Glucose 147 H POC Glucose Lactic Acid Calcium Phosphorus 2.40 L Magnesium 2.40 H Direct Bilirubin AST ALT Alkaline Phosphatase Lactate Dehydrogenase Troponin T C-Reactive Protein Total Protein 5.8 L Albumin 2.2 L Prealbumin Triglycerides Cholesterol LDL Cholesterol Direct HDL Cholesterol Urine pH Urine WBC (Auto) Urine Creatinine Urine Total Protein Fluid Total Protein Vancomycin Trough Rheumatoid Factor Complement C4 58 H Miscellaneous Test Crossmatch 09/07/16 09/07/16 09/07/16 11:50 16:00 17:31 WBC RBC Hgb Hct MCV MCH MCHC RDW Plt Count Lymph % (Auto) [place] % (Auto) Lymph # [place] # Baso # Seg Neutrophils % Seg Neuts % (Manual) Lymphocytes % (Manual) Monocytes % (Manual) Eosinophils % (Manual) Basophils % (Manual) Nucleated RBC % Seg Neutrophils # Seg Neutrophils # Man Lymphocytes # (Manual) Monocytes # (Manual) Eosinophils # (Manual) Basophils # (Manual) PT INR Fibrinogen dRVVT Confirm Interp Factor V Activity POC ABG pH POC ABG pCO2 POC ABG pO2 158 H ABG pO2 ABG HCO3 ABG Base Excess ABG Hemoglobin Oxyhemoglobin Sodium Potassium Chloride Carbon Dioxide BUN Creatinine Glucose POC Glucose 175 H Lactic Acid Calcium Phosphorus Magnesium Direct Bilirubin AST ALT Alkaline Phosphatase Lactate Dehydrogenase Troponin T C-Reactive Protein Total Protein Albumin Prealbumin Triglycerides Cholesterol LDL Cholesterol Direct HDL Cholesterol Urine pH Urine WBC (Auto) Urine Creatinine 66.3 H Urine Total Protein Fluid Total Protein Vancomycin Trough Rheumatoid Factor Complement C4 Miscellaneous Test Crossmatch 09/07/16 09/08/16 09/08/16 23:50 05:46 06:18 WBC 17.8 H RBC 3.58 L Hgb 8.1 L Hct 25.5 L MCV 71 L MCH 23 L MCHC RDW 18.4 H Plt Count Lymph % (Auto) [place] % (Auto) Lymph # [place] # Baso # Seg Neutrophils % Seg Neuts % (Manual) 92.0 H Lymphocytes % (Manual) 6.0 L Monocytes % (Manual) Eosinophils % (Manual) Basophils % (Manual) Nucleated RBC % Seg Neutrophils # Seg Neutrophils # Man 16.4 H Lymphocytes # (Manual) 1.1 L Monocytes # (Manual) Eosinophils # (Manual) Basophils # (Manual) PT INR Fibrinogen dRVVT Confirm Interp Factor V Activity POC ABG pH POC ABG pCO2 34.3 L POC ABG pO2 71 L ABG pO2 ABG HCO3 ABG Base Excess ABG Hemoglobin Oxyhemoglobin Sodium Potassium Chloride Carbon Dioxide BUN Creatinine Glucose POC Glucose 216 H Lactic Acid Calcium Phosphorus Magnesium Direct Bilirubin AST ALT Alkaline Phosphatase Lactate Dehydrogenase Troponin T C-Reactive Protein Total Protein Albumin Prealbumin Triglycerides Cholesterol LDL Cholesterol Direct HDL Cholesterol Urine pH Urine WBC (Auto) Urine Creatinine Urine Total Protein Fluid Total Protein Vancomycin Trough Rheumatoid Factor Complement C4 Miscellaneous Test Crossmatch 09/08/16 09/08/16 09/08/16 06:18 06:51 10:55 WBC RBC Hgb Hct MCV MCH MCHC RDW Plt Count Lymph % (Auto) [place] % (Auto) Lymph # [place] # Baso # Seg Neutrophils % Seg Neuts % (Manual) Lymphocytes % (Manual) Monocytes % (Manual) Eosinophils % (Manual) Basophils % (Manual) Nucleated RBC % Seg Neutrophils # Seg Neutrophils # Man Lymphocytes # (Manual) Monocytes # (Manual) Eosinophils # (Manual) Basophils # (Manual) PT INR Fibrinogen dRVVT Confirm Interp Factor V Activity POC ABG pH POC ABG pCO2 POC ABG pO2 ABG pO2 ABG HCO3 ABG Base Excess ABG Hemoglobin Oxyhemoglobin Sodium 133 L Potassium Chloride 96.9 L Carbon Dioxide 20 L BUN 63 H Creatinine 2.7 H Glucose 195 H POC Glucose 204 H 169 H Lactic Acid Calcium Phosphorus Magnesium Direct Bilirubin AST ALT Alkaline Phosphatase Lactate Dehydrogenase Troponin T C-Reactive Protein Total Protein Albumin Prealbumin Triglycerides Cholesterol LDL Cholesterol Direct HDL Cholesterol Urine pH Urine WBC (Auto) Urine Creatinine Urine Total Protein Fluid Total Protein Vancomycin Trough Rheumatoid Factor Complement C4 Miscellaneous Test Crossmatch 09/08/16 09/08/16 09/08/16 11:48 11:48 11:48 WBC RBC Hgb Hct MCV MCH MCHC RDW Plt Count Lymph % (Auto) [place] % (Auto) Lymph # [place] # Baso # Seg Neutrophils % Seg Neuts % (Manual) Lymphocytes % (Manual) Monocytes % (Manual) Eosinophils % (Manual) Basophils % (Manual) Nucleated RBC % Seg Neutrophils # Seg Neutrophils # Man Lymphocytes # (Manual) Monocytes # (Manual) Eosinophils # (Manual) Basophils # (Manual) PT INR Fibrinogen 750 H dRVVT Confirm Interp Factor V Activity POC ABG pH POC ABG pCO2 POC ABG pO2 ABG pO2 ABG HCO3 ABG Base Excess ABG Hemoglobin Oxyhemoglobin Sodium Potassium Chloride Carbon Dioxide BUN Creatinine Glucose POC Glucose Lactic Acid Calcium Phosphorus Magnesium Direct Bilirubin AST ALT Alkaline Phosphatase Lactate Dehydrogenase Troponin T C-Reactive Protein 15.70 H Total Protein Albumin Prealbumin Triglycerides Cholesterol LDL Cholesterol Direct HDL Cholesterol Urine pH Urine WBC (Auto) Urine Creatinine Urine Total Protein Fluid Total Protein Vancomycin Trough Rheumatoid Factor 24 H Complement C4 Miscellaneous Test Crossmatch 09/08/16 09/08/16 09/09/16 15:35 18:25 00:24 WBC RBC Hgb Hct MCV MCH MCHC RDW Plt Count Lymph % (Auto) [place] % (Auto) Lymph # [place] # Baso # Seg Neutrophils % Seg Neuts % (Manual) Lymphocytes % (Manual) Monocytes % (Manual) Eosinophils % (Manual) Basophils % (Manual) Nucleated RBC % Seg Neutrophils # Seg Neutrophils # Man Lymphocytes # (Manual) Monocytes # (Manual) Eosinophils # (Manual) Basophils # (Manual) PT INR Fibrinogen dRVVT Confirm Interp Factor V Activity 182 H POC ABG pH POC ABG pCO2 POC ABG pO2 ABG pO2 ABG HCO3 ABG Base Excess ABG Hemoglobin Oxyhemoglobin Sodium Potassium Chloride Carbon Dioxide BUN Creatinine Glucose POC Glucose 184 H 216 H Lactic Acid Calcium Phosphorus Magnesium Direct Bilirubin AST ALT Alkaline Phosphatase Lactate Dehydrogenase Troponin T C-Reactive Protein Total Protein Albumin Prealbumin Triglycerides Cholesterol LDL Cholesterol Direct HDL Cholesterol Urine pH Urine WBC (Auto) Urine Creatinine Urine Total Protein Fluid Total Protein Vancomycin Trough Rheumatoid Factor Complement C4 Miscellaneous Test Crossmatch 09/09/16 09/09/16 09/09/16 03:00 03:00 04:04 WBC 27.9 H RBC Hgb 8.7 L Hct 28.1 L MCV 72 L MCH 22 L MCHC RDW 18.4 H Plt Count 485 H Lymph % (Auto) [place] % (Auto) Lymph # [place] # Baso # Seg Neutrophils % Seg Neuts % (Manual) 77.0 H Lymphocytes % (Manual) 9.0 L Monocytes % (Manual) Eosinophils % (Manual) Basophils % (Manual) Nucleated RBC % Seg Neutrophils # Seg Neutrophils # Man 21.5 H Lymphocytes # (Manual) Monocytes # (Manual) 2.0 H Eosinophils # (Manual) Basophils # (Manual) PT INR Fibrinogen dRVVT Confirm Interp Factor V Activity POC ABG pH POC ABG pCO2 POC ABG pO2 121 H ABG pO2 ABG HCO3 ABG Base Excess ABG Hemoglobin Oxyhemoglobin Sodium 135 L Potassium Chloride 96.3 L Carbon Dioxide 21 L BUN 83 H Creatinine 3.0 H Glucose 135 H POC Glucose Lactic Acid Calcium Phosphorus Magnesium Direct Bilirubin AST ALT Alkaline Phosphatase Lactate Dehydrogenase Troponin T C-Reactive Protein Total Protein Albumin Prealbumin Triglycerides Cholesterol LDL Cholesterol Direct HDL Cholesterol Urine pH Urine WBC (Auto) Urine Creatinine Urine Total Protein Fluid Total Protein Vancomycin Trough Rheumatoid Factor Complement C4 Miscellaneous Test Crossmatch 09/09/16 09/09/16 09/09/16 05:41 11:55 14:13 WBC RBC Hgb Hct MCV MCH MCHC RDW Plt Count Lymph % (Auto) [place] % (Auto) Lymph # [place] # Baso # Seg Neutrophils % Seg Neuts % (Manual) Lymphocytes % (Manual) Monocytes % (Manual) Eosinophils % (Manual) Basophils % (Manual) Nucleated RBC % Seg Neutrophils # Seg Neutrophils # Man Lymphocytes # (Manual) Monocytes # (Manual) Eosinophils # (Manual) Basophils # (Manual) PT INR Fibrinogen dRVVT Confirm Interp Factor V Activity POC ABG pH POC ABG pCO2 POC ABG pO2 ABG pO2 ABG HCO3 ABG Base Excess ABG Hemoglobin Oxyhemoglobin Sodium Potassium Chloride Carbon Dioxide BUN Creatinine Glucose POC Glucose 155 H 186 H Lactic Acid Calcium Phosphorus Magnesium Direct Bilirubin AST ALT Alkaline Phosphatase Lactate Dehydrogenase Troponin T C-Reactive Protein Total Protein Albumin Prealbumin Triglycerides Cholesterol LDL Cholesterol Direct HDL Cholesterol Urine pH Urine WBC (Auto) 25.0 H Urine Creatinine Urine Total Protein Fluid Total Protein Vancomycin Trough Rheumatoid Factor Complement C4 Miscellaneous Test Crossmatch 09/09/16 09/09/16 09/10/16 17:33 23:13 05:09 WBC RBC Hgb Hct MCV MCH MCHC RDW Plt Count Lymph % (Auto) [place] % (Auto) Lymph # [place] # Baso # Seg Neutrophils % Seg Neuts % (Manual) Lymphocytes % (Manual) Monocytes % (Manual) Eosinophils % (Manual) Basophils % (Manual) Nucleated RBC % Seg Neutrophils # Seg Neutrophils # Man Lymphocytes # (Manual) Monocytes # (Manual) Eosinophils # (Manual) Basophils # (Manual) PT INR Fibrinogen dRVVT Confirm Interp Factor V Activity POC ABG pH POC ABG pCO2 POC ABG pO2 74 L ABG pO2 ABG HCO3 ABG Base Excess ABG Hemoglobin Oxyhemoglobin Sodium Potassium Chloride Carbon Dioxide BUN Creatinine Glucose POC Glucose 211 H 215 H Lactic Acid Calcium Phosphorus Magnesium Direct Bilirubin AST ALT Alkaline Phosphatase Lactate Dehydrogenase Troponin T C-Reactive Protein Total Protein Albumin Prealbumin Triglycerides Cholesterol LDL Cholesterol Direct HDL Cholesterol Urine pH Urine WBC (Auto) Urine Creatinine Urine Total Protein Fluid Total Protein Vancomycin Trough Rheumatoid Factor Complement C4 Miscellaneous Test Crossmatch 09/10/16 09/10/16 09/10/16 05:17 05:17 11:31 WBC 15.8 H RBC 3.25 L Hgb 7.3 L Hct 22.9 L MCV 71 L MCH 23 L MCHC RDW 18.4 H Plt Count Lymph % (Auto) [place] % (Auto) Lymph # [place] # Baso # Seg Neutrophils % Seg Neuts % (Manual) 91.0 H Lymphocytes % (Manual) 4.0 L Monocytes % (Manual) Eosinophils % (Manual) Basophils % (Manual) Nucleated RBC % Seg Neutrophils # Seg Neutrophils # Man 14.4 H Lymphocytes # (Manual) 0.6 L Monocytes # (Manual) Eosinophils # (Manual) Basophils # (Manual) PT INR Fibrinogen dRVVT Confirm Interp Factor V Activity POC ABG pH POC ABG pCO2 POC ABG pO2 ABG pO2 ABG HCO3 ABG Base Excess ABG Hemoglobin Oxyhemoglobin Sodium Potassium Chloride Carbon Dioxide 21 L BUN 93 H Creatinine 2.9 H Glucose 146 H POC Glucose 188 H Lactic Acid Calcium 8.1 L Phosphorus Magnesium Direct Bilirubin AST ALT Alkaline Phosphatase Lactate Dehydrogenase Troponin T C-Reactive Protein Total Protein Albumin Prealbumin Triglycerides Cholesterol LDL Cholesterol Direct HDL Cholesterol Urine pH Urine WBC (Auto) Urine Creatinine Urine Total Protein Fluid Total Protein Vancomycin Trough Rheumatoid Factor Complement C4 Miscellaneous Test Crossmatch 09/10/16 09/10/16 09/10/16 13:17 17:20 23:32 WBC RBC Hgb Hct MCV MCH MCHC RDW Plt Count Lymph % (Auto) [place] % (Auto) Lymph # [place] # Baso # Seg Neutrophils % Seg Neuts % (Manual) Lymphocytes % (Manual) Monocytes % (Manual) Eosinophils % (Manual) Basophils % (Manual) Nucleated RBC % Seg Neutrophils # Seg Neutrophils # Man Lymphocytes # (Manual) Monocytes # (Manual) Eosinophils # (Manual) Basophils # (Manual) PT INR Fibrinogen dRVVT Confirm Interp Factor V Activity POC ABG pH POC ABG pCO2 POC ABG pO2 ABG pO2 ABG HCO3 ABG Base Excess ABG Hemoglobin Oxyhemoglobin Sodium Potassium Chloride Carbon Dioxide BUN Creatinine Glucose POC Glucose 199 H 186 H Lactic Acid Calcium Phosphorus Magnesium Direct Bilirubin AST ALT Alkaline Phosphatase Lactate Dehydrogenase Troponin T C-Reactive Protein Total Protein Albumin Prealbumin Triglycerides Cholesterol LDL Cholesterol Direct HDL Cholesterol Urine pH Urine WBC (Auto) Urine Creatinine Urine Total Protein Fluid Total Protein Vancomycin Trough Rheumatoid Factor Complement C4 Miscellaneous Test Crossmatch See Detail 09/11/16 09/11/16 09/11/16 05:10 05:10 05:17 WBC 28.4 H RBC Hgb 9.2 L Hct 29.3 L D MCV 73 L MCH 23 L MCHC RDW 18.9 H Plt Count 452 H Lymph % (Auto) [place] % (Auto) Lymph # [place] # Baso # Seg Neutrophils % Seg Neuts % (Manual) 89.5 H Lymphocytes % (Manual) 2.0 L Monocytes % (Manual) Eosinophils % (Manual) Basophils % (Manual) Nucleated RBC % Seg Neutrophils # Seg Neutrophils # Man 25.4 H Lymphocytes # (Manual) 0.6 L Monocytes # (Manual) 1.3 H Eosinophils # (Manual) Basophils # (Manual) PT INR Fibrinogen dRVVT Confirm Interp Factor V Activity POC ABG pH POC ABG pCO2 POC ABG pO2 ABG pO2 ABG HCO3 ABG Base Excess ABG Hemoglobin Oxyhemoglobin Sodium 136 L Potassium Chloride Carbon Dioxide 18 L BUN 107 H Creatinine 2.6 H Glucose 187 H POC Glucose 230 H Lactic Acid Calcium 8.3 L Phosphorus Magnesium Direct Bilirubin AST ALT Alkaline Phosphatase Lactate Dehydrogenase Troponin T C-Reactive Protein Total Protein Albumin Prealbumin Triglycerides Cholesterol LDL Cholesterol Direct HDL Cholesterol Urine pH Urine WBC (Auto) Urine Creatinine Urine Total Protein Fluid Total Protein Vancomycin Trough Rheumatoid Factor Complement C4 Miscellaneous Test Crossmatch 09/11/16 09/11/16 09/11/16 05:55 12:02 17:32 WBC RBC Hgb Hct MCV MCH MCHC RDW Plt Count Lymph % (Auto) [place] % (Auto) Lymph # [place] # Baso # Seg Neutrophils % Seg Neuts % (Manual) Lymphocytes % (Manual) Monocytes % (Manual) Eosinophils % (Manual) Basophils % (Manual) Nucleated RBC % Seg Neutrophils # Seg Neutrophils # Man Lymphocytes # (Manual) Monocytes # (Manual) Eosinophils # (Manual) Basophils # (Manual) PT INR Fibrinogen dRVVT Confirm Interp Factor V Activity POC ABG pH POC ABG pCO2 33.8 L POC ABG pO2 ABG pO2 ABG HCO3 ABG Base Excess ABG Hemoglobin Oxyhemoglobin Sodium Potassium Chloride Carbon Dioxide BUN Creatinine Glucose POC Glucose 191 H 239 H Lactic Acid Calcium Phosphorus Magnesium Direct Bilirubin AST ALT Alkaline Phosphatase Lactate Dehydrogenase Troponin T C-Reactive Protein Total Protein Albumin Prealbumin Triglycerides Cholesterol LDL Cholesterol Direct HDL Cholesterol Urine pH Urine WBC (Auto) Urine Creatinine Urine Total Protein Fluid Total Protein Vancomycin Trough Rheumatoid Factor Complement C4 Miscellaneous Test Crossmatch 09/11/16 09/12/16 09/12/16 23:52 05:09 05:32 WBC RBC Hgb Hct MCV MCH MCHC RDW Plt Count Lymph % (Auto) [place] % (Auto) Lymph # [place] # Baso # Seg Neutrophils % Seg Neuts % (Manual) Lymphocytes % (Manual) Monocytes % (Manual) Eosinophils % (Manual) Basophils % (Manual) Nucleated RBC % Seg Neutrophils # Seg Neutrophils # Man Lymphocytes # (Manual) Monocytes # (Manual) Eosinophils # (Manual) Basophils # (Manual) PT INR Fibrinogen dRVVT Confirm Interp Factor V Activity POC ABG pH POC ABG pCO2 34.6 L POC ABG pO2 ABG pO2 ABG HCO3 ABG Base Excess ABG Hemoglobin Oxyhemoglobin Sodium Potassium Chloride Carbon Dioxide BUN Creatinine Glucose POC Glucose 265 H 184 H Lactic Acid Calcium Phosphorus Magnesium Direct Bilirubin AST ALT Alkaline Phosphatase Lactate Dehydrogenase Troponin T C-Reactive Protein Total Protein Albumin Prealbumin Triglycerides Cholesterol LDL Cholesterol Direct HDL Cholesterol Urine pH Urine WBC (Auto) Urine Creatinine Urine Total Protein Fluid Total Protein Vancomycin Trough Rheumatoid Factor Complement C4 Miscellaneous Test Crossmatch 09/12/16 09/12/16 09/12/16 06:45 06:45 07:22 WBC 31.7 H RBC 3.54 L Hgb 8.3 L Hct 25.9 L MCV 73 L MCH 23 L MCHC RDW 18.9 H Plt Count Lymph % (Auto) [place] % (Auto) Lymph # [place] # Baso # Seg Neutrophils % Seg Neuts % (Manual) 88.5 H Lymphocytes % (Manual) 4.5 L Monocytes % (Manual) Eosinophils % (Manual) Basophils % (Manual) Nucleated RBC % Seg Neutrophils # Seg Neutrophils # Man 28.1 H Lymphocytes # (Manual) Monocytes # (Manual) 1.0 H Eosinophils # (Manual) Basophils # (Manual) PT INR Fibrinogen dRVVT Confirm Interp Factor V Activity POC ABG pH POC ABG pCO2 POC ABG pO2 ABG pO2 ABG HCO3 ABG Base Excess ABG Hemoglobin Oxyhemoglobin Sodium Potassium Chloride Carbon Dioxide 20 L BUN 115 H Creatinine 2.7 H Glucose 165 H POC Glucose Lactic Acid Calcium 8.0 L Phosphorus Magnesium Direct Bilirubin AST ALT Alkaline Phosphatase Lactate Dehydrogenase Troponin T C-Reactive Protein Total Protein Albumin Prealbumin Triglycerides 217 H Cholesterol LDL Cholesterol Direct HDL Cholesterol Urine pH Urine WBC (Auto) Urine Creatinine Urine Total Protein Fluid Total Protein Vancomycin Trough Rheumatoid Factor Complement C4 Miscellaneous Test Crossmatch 09/12/16 09/12/16 09/12/16 07:22 09:59 12:21 WBC RBC Hgb Hct MCV MCH MCHC RDW Plt Count Lymph % (Auto) [place] % (Auto) Lymph # [place] # Baso # Seg Neutrophils % Seg Neuts % (Manual) Lymphocytes % (Manual) Monocytes % (Manual) Eosinophils % (Manual) Basophils % (Manual) Nucleated RBC % Seg Neutrophils # Seg Neutrophils # Man Lymphocytes # (Manual) Monocytes # (Manual) Eosinophils # (Manual) Basophils # (Manual) PT INR Fibrinogen dRVVT Confirm Interp Positive H Factor V Activity POC ABG pH POC ABG pCO2 POC ABG pO2 ABG pO2 ABG HCO3 ABG Base Excess ABG Hemoglobin Oxyhemoglobin Sodium Potassium Chloride Carbon Dioxide BUN Creatinine Glucose POC Glucose 224 H Lactic Acid Calcium Phosphorus Magnesium Direct Bilirubin AST ALT Alkaline Phosphatase Lactate Dehydrogenase Troponin T C-Reactive Protein 1.70 H Total Protein Albumin Prealbumin Triglycerides Cholesterol LDL Cholesterol Direct HDL Cholesterol Urine pH Urine WBC (Auto) Urine Creatinine Urine Total Protein Fluid Total Protein Vancomycin Trough Rheumatoid Factor Complement C4 Miscellaneous Test Crossmatch 09/12/16 09/12/16 09/13/16 16:51 23:28 04:00 WBC 45.0 H* RBC Hgb 9.4 L Hct MCV 75 L MCH 23 L MCHC RDW 19.0 H Plt Count 470 H Lymph % (Auto) [place] % (Auto) Lymph # [place] # Baso # Seg Neutrophils % Seg Neuts % (Manual) 89.0 H Lymphocytes % (Manual) 5.0 L Monocytes % (Manual) Eosinophils % (Manual) Basophils % (Manual) Nucleated RBC % Seg Neutrophils # Seg Neutrophils # Man 40.1 H Lymphocytes # (Manual) Monocytes # (Manual) Eosinophils # (Manual) Basophils # (Manual) PT INR Fibrinogen dRVVT Confirm Interp Factor V Activity POC ABG pH POC ABG pCO2 POC ABG pO2 ABG pO2 ABG HCO3 ABG Base Excess ABG Hemoglobin Oxyhemoglobin Sodium Potassium Chloride Carbon Dioxide BUN Creatinine Glucose POC Glucose 169 H 150 H Lactic Acid Calcium Phosphorus Magnesium Direct Bilirubin AST ALT Alkaline Phosphatase Lactate Dehydrogenase Troponin T C-Reactive Protein Total Protein Albumin Prealbumin Triglycerides Cholesterol LDL Cholesterol Direct HDL Cholesterol Urine pH Urine WBC (Auto) Urine Creatinine Urine Total Protein Fluid Total Protein Vancomycin Trough Rheumatoid Factor Complement C4 Miscellaneous Test Crossmatch 09/13/16 09/13/16 09/13/16 04:00 11:26 17:31 WBC RBC Hgb Hct MCV MCH MCHC RDW Plt Count Lymph % (Auto) [place] % (Auto) Lymph # [place] # Baso # Seg Neutrophils % Seg Neuts % (Manual) Lymphocytes % (Manual) Monocytes % (Manual) Eosinophils % (Manual) Basophils % (Manual) Nucleated RBC % Seg Neutrophils # Seg Neutrophils # Man Lymphocytes # (Manual) Monocytes # (Manual) Eosinophils # (Manual) Basophils # (Manual) PT INR Fibrinogen dRVVT Confirm Interp Factor V Activity POC ABG pH POC ABG pCO2 POC ABG pO2 ABG pO2 ABG HCO3 ABG Base Excess ABG Hemoglobin Oxyhemoglobin Sodium Potassium Chloride Carbon Dioxide 20 L BUN 116 H Creatinine 3.0 H Glucose 172 H POC Glucose 140 H 183 H Lactic Acid Calcium Phosphorus Magnesium Direct Bilirubin AST ALT Alkaline Phosphatase Lactate Dehydrogenase Troponin T C-Reactive Protein Total Protein 6.2 L Albumin 2.9 L Prealbumin Triglycerides Cholesterol LDL Cholesterol Direct HDL Cholesterol Urine pH Urine WBC (Auto) Urine Creatinine Urine Total Protein Fluid Total Protein Vancomycin Trough Rheumatoid Factor Complement C4 Miscellaneous Test Crossmatch 09/13/16 09/14/16 09/14/16 23:23 04:06 04:07 WBC 29.4 H RBC Hgb 8.9 L Hct 27.3 L MCV 75 L MCH 24 L MCHC RDW 19.1 H Plt Count Lymph % (Auto) [place] % (Auto) Lymph # [place] # Baso # Seg Neutrophils % Seg Neuts % (Manual) 84.0 H Lymphocytes % (Manual) 6.0 L Monocytes % (Manual) 9.0 H Eosinophils % (Manual) Basophils % (Manual) Nucleated RBC % Seg Neutrophils # Seg Neutrophils # Man 24.7 H Lymphocytes # (Manual) Monocytes # (Manual) 2.6 H Eosinophils # (Manual) Basophils # (Manual) PT INR Fibrinogen dRVVT Confirm Interp Factor V Activity POC ABG pH 7.342 L POC ABG pCO2 POC ABG pO2 116 H ABG pO2 ABG HCO3 ABG Base Excess ABG Hemoglobin Oxyhemoglobin Sodium Potassium Chloride Carbon Dioxide BUN Creatinine Glucose POC Glucose 154 H Lactic Acid Calcium Phosphorus Magnesium Direct Bilirubin AST ALT Alkaline Phosphatase Lactate Dehydrogenase Troponin T C-Reactive Protein Total Protein Albumin Prealbumin Triglycerides Cholesterol LDL Cholesterol Direct HDL Cholesterol Urine pH Urine WBC (Auto) Urine Creatinine Urine Total Protein Fluid Total Protein Vancomycin Trough Rheumatoid Factor Complement C4 Miscellaneous Test Crossmatch 09/14/16 09/14/16 09/14/16 04:07 05:29 12:19 WBC RBC Hgb Hct MCV MCH MCHC RDW Plt Count Lymph % (Auto) [place] % (Auto) Lymph # [place] # Baso # Seg Neutrophils % Seg Neuts % (Manual) Lymphocytes % (Manual) Monocytes % (Manual) Eosinophils % (Manual) Basophils % (Manual) Nucleated RBC % Seg Neutrophils # Seg Neutrophils # Man Lymphocytes # (Manual) Monocytes # (Manual) Eosinophils # (Manual) Basophils # (Manual) PT INR Fibrinogen dRVVT Confirm Interp Factor V Activity POC ABG pH POC ABG pCO2 POC ABG pO2 ABG pO2 ABG HCO3 ABG Base Excess ABG Hemoglobin Oxyhemoglobin Sodium 136 L Potassium Chloride Carbon Dioxide 18 L BUN 121 H Creatinine 2.8 H Glucose 214 H POC Glucose 239 H 181 H Lactic Acid Calcium Phosphorus Magnesium Direct Bilirubin AST ALT Alkaline Phosphatase Lactate Dehydrogenase Troponin T C-Reactive Protein Total Protein Albumin Prealbumin Triglycerides Cholesterol LDL Cholesterol Direct HDL Cholesterol Urine pH Urine WBC (Auto) Urine Creatinine Urine Total Protein Fluid Total Protein Vancomycin Trough Rheumatoid Factor Complement C4 Miscellaneous Test Crossmatch 09/14/16 09/14/16 09/15/16 18:12 23:37 05:00 WBC 26.1 H RBC 3.05 L Hgb 7.2 L Hct 22.9 L MCV 75 L MCH 24 L MCHC RDW 19.0 H Plt Count Lymph % (Auto) [place] % (Auto) Lymph # [place] # Baso # Seg Neutrophils % Seg Neuts % (Manual) Lymphocytes % (Manual) Monocytes % (Manual) Eosinophils % (Manual) Basophils % (Manual) Nucleated RBC % Seg Neutrophils # Seg Neutrophils # Man Lymphocytes # (Manual) Monocytes # (Manual) Eosinophils # (Manual) Basophils # (Manual) PT INR Fibrinogen dRVVT Confirm Interp Factor V Activity POC ABG pH POC ABG pCO2 POC ABG pO2 ABG pO2 ABG HCO3 ABG Base Excess ABG Hemoglobin Oxyhemoglobin Sodium Potassium Chloride Carbon Dioxide BUN Creatinine Glucose POC Glucose 266 H 154 H Lactic Acid Calcium Phosphorus Magnesium Direct Bilirubin AST ALT Alkaline Phosphatase Lactate Dehydrogenase Troponin T C-Reactive Protein Total Protein Albumin Prealbumin Triglycerides Cholesterol LDL Cholesterol Direct HDL Cholesterol Urine pH Urine WBC (Auto) Urine Creatinine Urine Total Protein Fluid Total Protein Vancomycin Trough Rheumatoid Factor Complement C4 Miscellaneous Test Crossmatch 09/15/16 09/15/16 09/15/16 05:00 05:17 12:45 WBC RBC Hgb Hct MCV MCH MCHC RDW Plt Count Lymph % (Auto) [place] % (Auto) Lymph # [place] # Baso # Seg Neutrophils % Seg Neuts % (Manual) Lymphocytes % (Manual) Monocytes % (Manual) Eosinophils % (Manual) Basophils % (Manual) Nucleated RBC % Seg Neutrophils # Seg Neutrophils # Man Lymphocytes # (Manual) Monocytes # (Manual) Eosinophils # (Manual) Basophils # (Manual) PT INR Fibrinogen dRVVT Confirm Interp Factor V Activity POC ABG pH POC ABG pCO2 POC ABG pO2 ABG pO2 ABG HCO3 ABG Base Excess ABG Hemoglobin Oxyhemoglobin Sodium Potassium 5.2 H Chloride Carbon Dioxide 18 L BUN 139 H Creatinine 3.7 H Glucose 227 H POC Glucose 226 H 244 H Lactic Acid Calcium 8.3 L Phosphorus Magnesium Direct Bilirubin AST ALT Alkaline Phosphatase Lactate Dehydrogenase Troponin T C-Reactive Protein Total Protein Albumin Prealbumin Triglycerides Cholesterol LDL Cholesterol Direct HDL Cholesterol Urine pH Urine WBC (Auto) Urine Creatinine Urine Total Protein Fluid Total Protein Vancomycin Trough Rheumatoid Factor Complement C4 Miscellaneous Test Crossmatch 09/15/16 09/15/16 09/15/16 14:32 17:33 23:35 WBC RBC Hgb Hct MCV MCH MCHC RDW Plt Count Lymph % (Auto) [place] % (Auto) Lymph # [place] # Baso # Seg Neutrophils % Seg Neuts % (Manual) Lymphocytes % (Manual) Monocytes % (Manual) Eosinophils % (Manual) Basophils % (Manual) Nucleated RBC % Seg Neutrophils # Seg Neutrophils # Man Lymphocytes # (Manual) Monocytes # (Manual) Eosinophils # (Manual) Basophils # (Manual) PT INR Fibrinogen dRVVT Confirm Interp Factor V Activity POC ABG pH POC ABG pCO2 27.7 L POC ABG pO2 120 H ABG pO2 ABG HCO3 ABG Base Excess ABG Hemoglobin Oxyhemoglobin Sodium Potassium Chloride Carbon Dioxide BUN Creatinine Glucose POC Glucose 232 H 167 H Lactic Acid Calcium Phosphorus Magnesium Direct Bilirubin AST ALT Alkaline Phosphatase Lactate Dehydrogenase Troponin T C-Reactive Protein Total Protein Albumin Prealbumin Triglycerides Cholesterol LDL Cholesterol Direct HDL Cholesterol Urine pH Urine WBC (Auto) Urine Creatinine Urine Total Protein Fluid Total Protein Vancomycin Trough Rheumatoid Factor Complement C4 Miscellaneous Test Crossmatch 09/16/16 09/16/16 09/16/16 03:58 10:27 10:27 WBC 19.0 H RBC 2.77 L Hgb 6.5 L Hct 20.9 L MCV 76 L MCH 23 L MCHC RDW 19.3 H Plt Count Lymph % (Auto) 11.0 L [place] % (Auto) Lymph # [place] # 1.1 H Baso # Seg Neutrophils % 82.5 H Seg Neuts % (Manual) Lymphocytes % (Manual) Monocytes % (Manual) Eosinophils % (Manual) Basophils % (Manual) Nucleated RBC % Seg Neutrophils # 15.7 H Seg Neutrophils # Man Lymphocytes # (Manual) Monocytes # (Manual) Eosinophils # (Manual) Basophils # (Manual) PT INR Fibrinogen dRVVT Confirm Interp Factor V Activity POC ABG pH POC ABG pCO2 POC ABG pO2 ABG pO2 ABG HCO3 ABG Base Excess ABG Hemoglobin Oxyhemoglobin Sodium Potassium Chloride 109.3 H Carbon Dioxide 18 L BUN 139 H Creatinine 4.1 H Glucose 144 H POC Glucose 146 H Lactic Acid Calcium 8.1 L Phosphorus Magnesium Direct Bilirubin AST ALT Alkaline Phosphatase Lactate Dehydrogenase Troponin T C-Reactive Protein Total Protein Albumin Prealbumin Triglycerides Cholesterol LDL Cholesterol Direct HDL Cholesterol Urine pH Urine WBC (Auto) Urine Creatinine Urine Total Protein Fluid Total Protein Vancomycin Trough Rheumatoid Factor Complement C4 Miscellaneous Test Crossmatch 09/16/16 09/16/16 09/16/16 12:04 12:10 13:55 WBC RBC Hgb Hct MCV MCH MCHC RDW Plt Count Lymph % (Auto) [place] % (Auto) Lymph # [place] # Baso # Seg Neutrophils % Seg Neuts % (Manual) Lymphocytes % (Manual) Monocytes % (Manual) Eosinophils % (Manual) Basophils % (Manual) Nucleated RBC % Seg Neutrophils # Seg Neutrophils # Man Lymphocytes # (Manual) Monocytes # (Manual) Eosinophils # (Manual) Basophils # (Manual) PT INR Fibrinogen dRVVT Confirm Interp Factor V Activity POC ABG pH POC ABG pCO2 32.9 L POC ABG pO2 ABG pO2 ABG HCO3 ABG Base Excess ABG Hemoglobin Oxyhemoglobin Sodium Potassium Chloride Carbon Dioxide BUN Creatinine Glucose POC Glucose 185 H Lactic Acid Calcium Phosphorus Magnesium Direct Bilirubin AST ALT Alkaline Phosphatase Lactate Dehydrogenase Troponin T C-Reactive Protein Total Protein Albumin Prealbumin Triglycerides Cholesterol LDL Cholesterol Direct HDL Cholesterol Urine pH Urine WBC (Auto) Urine Creatinine Urine Total Protein Fluid Total Protein Vancomycin Trough Rheumatoid Factor Complement C4 Miscellaneous Test Crossmatch See Detail 09/16/16 09/16/16 09/16/16 17:55 19:19 23:48 WBC RBC Hgb Hct MCV MCH MCHC RDW Plt Count Lymph % (Auto) [place] % (Auto) Lymph # [place] # Baso # Seg Neutrophils % Seg Neuts % (Manual) Lymphocytes % (Manual) Monocytes % (Manual) Eosinophils % (Manual) Basophils % (Manual) Nucleated RBC % Seg Neutrophils # Seg Neutrophils # Man Lymphocytes # (Manual) Monocytes # (Manual) Eosinophils # (Manual) Basophils # (Manual) PT INR Fibrinogen dRVVT Confirm Interp Factor V Activity POC ABG pH POC ABG pCO2 POC ABG pO2 ABG pO2 ABG HCO3 ABG Base Excess ABG Hemoglobin Oxyhemoglobin Sodium Potassium Chloride Carbon Dioxide BUN Creatinine Glucose POC Glucose 222 H 107 H Lactic Acid Calcium Phosphorus Magnesium Direct Bilirubin AST ALT Alkaline Phosphatase Lactate Dehydrogenase Troponin T C-Reactive Protein Total Protein Albumin Prealbumin Triglycerides Cholesterol LDL Cholesterol Direct HDL Cholesterol Urine pH Urine WBC (Auto) Urine Creatinine 47.4 H Urine Total Protein 16 H Fluid Total Protein Vancomycin Trough Rheumatoid Factor Complement C4 Miscellaneous Test Crossmatch 09/17/16 09/17/16 09/17/16 03:45 03:45 04:55 WBC 19.6 H RBC 3.41 L Hgb 8.5 L Hct 26.7 L MCV 78 L MCH 25 L MCHC RDW 19.9 H Plt Count Lymph % (Auto) 9.3 L [place] % (Auto) Lymph # [place] # 1.2 H Baso # Seg Neutrophils % 83.9 H Seg Neuts % (Manual) Lymphocytes % (Manual) Monocytes % (Manual) Eosinophils % (Manual) Basophils % (Manual) Nucleated RBC % Seg Neutrophils # 16.4 H Seg Neutrophils # Man Lymphocytes # (Manual) Monocytes # (Manual) Eosinophils # (Manual) Basophils # (Manual) PT INR Fibrinogen dRVVT Confirm Interp Factor V Activity POC ABG pH POC ABG pCO2 POC ABG pO2 ABG pO2 ABG HCO3 ABG Base Excess ABG Hemoglobin Oxyhemoglobin Sodium 146 H Potassium 5.1 H Chloride 110.9 H Carbon Dioxide 16 L BUN 146 H Creatinine 4.0 H Glucose 108 H POC Glucose 133 H Lactic Acid Calcium Phosphorus Magnesium 3.00 H Direct Bilirubin AST ALT Alkaline Phosphatase Lactate Dehydrogenase Troponin T C-Reactive Protein Total Protein Albumin Prealbumin Triglycerides Cholesterol LDL Cholesterol Direct HDL Cholesterol Urine pH Urine WBC (Auto) Urine Creatinine Urine Total Protein Fluid Total Protein Vancomycin Trough Rheumatoid Factor Complement C4 Miscellaneous Test Crossmatch 09/17/16 09/17/16 09/17/16 11:15 17:33 23:47 WBC RBC Hgb Hct MCV MCH MCHC RDW Plt Count Lymph % (Auto) [place] % (Auto) Lymph # [place] # Baso # Seg Neutrophils % Seg Neuts % (Manual) Lymphocytes % (Manual) Monocytes % (Manual) Eosinophils % (Manual) Basophils % (Manual) Nucleated RBC % Seg Neutrophils # Seg Neutrophils # Man Lymphocytes # (Manual) Monocytes # (Manual) Eosinophils # (Manual) Basophils # (Manual) PT INR Fibrinogen dRVVT Confirm Interp Factor V Activity POC ABG pH POC ABG pCO2 POC ABG pO2 ABG pO2 ABG HCO3 ABG Base Excess ABG Hemoglobin Oxyhemoglobin Sodium Potassium Chloride Carbon Dioxide BUN Creatinine Glucose POC Glucose 176 H 246 H 148 H Lactic Acid Calcium Phosphorus Magnesium Direct Bilirubin AST ALT Alkaline Phosphatase Lactate Dehydrogenase Troponin T C-Reactive Protein Total Protein Albumin Prealbumin Triglycerides Cholesterol LDL Cholesterol Direct HDL Cholesterol Urine pH Urine WBC (Auto) Urine Creatinine Urine Total Protein Fluid Total Protein Vancomycin Trough Rheumatoid Factor Complement C4 Miscellaneous Test Crossmatch 09/18/16 09/18/16 09/18/16 05:33 08:31 08:31 WBC 18.0 H RBC 3.17 L Hgb 9.0 L Hct 25.7 L MCV MCH MCHC 35 H RDW 20.4 H Plt Count Lymph % (Auto) [place] % (Auto) Lymph # [place] # Baso # Seg Neutrophils % Seg Neuts % (Manual) Lymphocytes % (Manual) Monocytes % (Manual) Eosinophils % (Manual) Basophils % (Manual) Nucleated RBC % Seg Neutrophils # Seg Neutrophils # Man Lymphocytes # (Manual) Monocytes # (Manual) Eosinophils # (Manual) Basophils # (Manual) PT INR Fibrinogen dRVVT Confirm Interp Factor V Activity POC ABG pH POC ABG pCO2 POC ABG pO2 ABG pO2 ABG HCO3 ABG Base Excess ABG Hemoglobin Oxyhemoglobin Sodium Potassium Chloride Carbon Dioxide 15 L BUN 124 H Creatinine 3.8 H Glucose POC Glucose 120 H Lactic Acid Calcium 8.1 L Phosphorus Magnesium Direct Bilirubin AST ALT Alkaline Phosphatase Lactate Dehydrogenase Troponin T C-Reactive Protein Total Protein Albumin Prealbumin Triglycerides Cholesterol LDL Cholesterol Direct HDL Cholesterol Urine pH Urine WBC (Auto) Urine Creatinine Urine Total Protein Fluid Total Protein Vancomycin Trough Rheumatoid Factor Complement C4 Miscellaneous Test Crossmatch 09/18/16 09/18/16 09/18/16 12:03 15:34 17:50 WBC RBC Hgb Hct MCV MCH MCHC RDW Plt Count Lymph % (Auto) [place] % (Auto) Lymph # [place] # Baso # Seg Neutrophils % Seg Neuts % (Manual) Lymphocytes % (Manual) Monocytes % (Manual) Eosinophils % (Manual) Basophils % (Manual) Nucleated RBC % Seg Neutrophils # Seg Neutrophils # Man Lymphocytes # (Manual) Monocytes # (Manual) Eosinophils # (Manual) Basophils # (Manual) PT INR Fibrinogen dRVVT Confirm Interp Factor V Activity POC ABG pH POC ABG pCO2 25.7 L POC ABG pO2 66 L ABG pO2 ABG HCO3 ABG Base Excess ABG Hemoglobin Oxyhemoglobin Sodium Potassium Chloride Carbon Dioxide BUN Creatinine Glucose POC Glucose 156 H 220 H Lactic Acid Calcium Phosphorus Magnesium Direct Bilirubin AST ALT Alkaline Phosphatase Lactate Dehydrogenase Troponin T C-Reactive Protein Total Protein Albumin Prealbumin Triglycerides Cholesterol LDL Cholesterol Direct HDL Cholesterol Urine pH Urine WBC (Auto) Urine Creatinine Urine Total Protein Fluid Total Protein Vancomycin Trough Rheumatoid Factor Complement C4 Miscellaneous Test Crossmatch 09/19/16 09/19/16 09/19/16 06:21 09:50 09:50 WBC 17.1 H RBC 3.49 L Hgb 9.0 L Hct 28.1 L MCV MCH 26 L MCHC RDW 20.8 H Plt Count Lymph % (Auto) 11.5 L [place] % (Auto) 7.5 H Lymph # [place] # 1.3 H Baso # Seg Neutrophils % 79.8 H Seg Neuts % (Manual) Lymphocytes % (Manual) Monocytes % (Manual) Eosinophils % (Manual) Basophils % (Manual) Nucleated RBC % Seg Neutrophils # 13.7 H Seg Neutrophils # Man Lymphocytes # (Manual) Monocytes # (Manual) Eosinophils # (Manual) Basophils # (Manual) PT INR Fibrinogen dRVVT Confirm Interp Factor V Activity POC ABG pH POC ABG pCO2 POC ABG pO2 ABG pO2 ABG HCO3 ABG Base Excess ABG Hemoglobin Oxyhemoglobin Sodium Potassium Chloride 108.6 H Carbon Dioxide 15 L BUN 125 H Creatinine 4.1 H Glucose 124 H POC Glucose 119 H Lactic Acid Calcium Phosphorus Magnesium Direct Bilirubin AST ALT Alkaline Phosphatase Lactate Dehydrogenase Troponin T C-Reactive Protein Total Protein Albumin Prealbumin Triglycerides Cholesterol LDL Cholesterol Direct HDL Cholesterol Urine pH Urine WBC (Auto) Urine Creatinine Urine Total Protein Fluid Total Protein Vancomycin Trough Rheumatoid Factor Complement C4 Miscellaneous Test Crossmatch 09/19/16 09/19/16 09/19/16 11:25 17:53 23:36 WBC RBC Hgb Hct MCV MCH MCHC RDW Plt Count Lymph % (Auto) [place] % (Auto) Lymph # [place] # Baso # Seg Neutrophils % Seg Neuts % (Manual) Lymphocytes % (Manual) Monocytes % (Manual) Eosinophils % (Manual) Basophils % (Manual) Nucleated RBC % Seg Neutrophils # Seg Neutrophils # Man Lymphocytes # (Manual) Monocytes # (Manual) Eosinophils # (Manual) Basophils # (Manual) PT INR Fibrinogen dRVVT Confirm Interp Factor V Activity POC ABG pH POC ABG pCO2 POC ABG pO2 ABG pO2 ABG HCO3 ABG Base Excess ABG Hemoglobin Oxyhemoglobin Sodium Potassium Chloride Carbon Dioxide BUN Creatinine Glucose POC Glucose 160 H 245 H 121 H Lactic Acid Calcium Phosphorus Magnesium Direct Bilirubin AST ALT Alkaline Phosphatase Lactate Dehydrogenase Troponin T C-Reactive Protein Total Protein Albumin Prealbumin Triglycerides Cholesterol LDL Cholesterol Direct HDL Cholesterol Urine pH Urine WBC (Auto) Urine Creatinine Urine Total Protein Fluid Total Protein Vancomycin Trough Rheumatoid Factor Complement C4 Miscellaneous Test Crossmatch 09/20/16 09/20/16 09/20/16 04:10 04:10 04:10 WBC 17.0 H RBC 3.21 L Hgb 8.2 L Hct 25.5 L MCV MCH 26 L MCHC RDW 20.9 H Plt Count Lymph % (Auto) [place] % (Auto) Lymph # [place] # Baso # Seg Neutrophils % Seg Neuts % (Manual) Lymphocytes % (Manual) Monocytes % (Manual) Eosinophils % (Manual) Basophils % (Manual) Nucleated RBC % Seg Neutrophils # Seg Neutrophils # Man Lymphocytes # (Manual) Monocytes # (Manual) Eosinophils # (Manual) Basophils # (Manual) PT INR Fibrinogen dRVVT Confirm Interp Factor V Activity POC ABG pH POC ABG pCO2 POC ABG pO2 ABG pO2 ABG HCO3 ABG Base Excess ABG Hemoglobin Oxyhemoglobin Sodium Potassium Chloride 111.0 H Carbon Dioxide 16 L BUN 129 H Creatinine 3.7 H Glucose 115 H POC Glucose Lactic Acid Calcium 8.2 L Phosphorus Magnesium Direct Bilirubin AST ALT Alkaline Phosphatase Lactate Dehydrogenase Troponin T C-Reactive Protein Total Protein Albumin Prealbumin Triglycerides 243 H Cholesterol LDL Cholesterol Direct HDL Cholesterol Urine pH Urine WBC (Auto) Urine Creatinine Urine Total Protein Fluid Total Protein Vancomycin Trough Rheumatoid Factor Complement C4 Miscellaneous Test Crossmatch 09/20/16 09/20/16 09/20/16 05:40 11:52 16:50 WBC RBC Hgb Hct MCV MCH MCHC RDW Plt Count Lymph % (Auto) [place] % (Auto) Lymph # [place] # Baso # Seg Neutrophils % Seg Neuts % (Manual) Lymphocytes % (Manual) Monocytes % (Manual) Eosinophils % (Manual) Basophils % (Manual) Nucleated RBC % Seg Neutrophils # Seg Neutrophils # Man Lymphocytes # (Manual) Monocytes # (Manual) Eosinophils # (Manual) Basophils # (Manual) PT INR Fibrinogen dRVVT Confirm Interp Factor V Activity POC ABG pH POC ABG pCO2 POC ABG pO2 ABG pO2 ABG HCO3 ABG Base Excess ABG Hemoglobin Oxyhemoglobin Sodium Potassium Chloride Carbon Dioxide BUN Creatinine Glucose POC Glucose 131 H 183 H 236 H Lactic Acid Calcium Phosphorus Magnesium Direct Bilirubin AST ALT Alkaline Phosphatase Lactate Dehydrogenase Troponin T C-Reactive Protein Total Protein Albumin Prealbumin Triglycerides Cholesterol LDL Cholesterol Direct HDL Cholesterol Urine pH Urine WBC (Auto) Urine Creatinine Urine Total Protein Fluid Total Protein Vancomycin Trough Rheumatoid Factor Complement C4 Miscellaneous Test Crossmatch 09/20/16 09/21/16 09/21/16 23:51 03:30 04:44 WBC RBC Hgb Hct MCV MCH MCHC RDW Plt Count Lymph % (Auto) [place] % (Auto) Lymph # [place] # Baso # Seg Neutrophils % Seg Neuts % (Manual) Lymphocytes % (Manual) Monocytes % (Manual) Eosinophils % (Manual) Basophils % (Manual) Nucleated RBC % Seg Neutrophils # Seg Neutrophils # Man Lymphocytes # (Manual) Monocytes # (Manual) Eosinophils # (Manual) Basophils # (Manual) PT INR Fibrinogen dRVVT Confirm Interp Factor V Activity POC ABG pH POC ABG pCO2 POC ABG pO2 ABG pO2 ABG HCO3 ABG Base Excess ABG Hemoglobin Oxyhemoglobin Sodium Potassium Chloride Carbon Dioxide BUN Creatinine Glucose POC Glucose 114 H 141 H Lactic Acid Calcium Phosphorus Magnesium 2.70 H Direct Bilirubin AST ALT Alkaline Phosphatase Lactate Dehydrogenase Troponin T C-Reactive Protein Total Protein Albumin Prealbumin Triglycerides Cholesterol LDL Cholesterol Direct HDL Cholesterol Urine pH Urine WBC (Auto) Urine Creatinine Urine Total Protein Fluid Total Protein Vancomycin Trough Rheumatoid Factor Complement C4 Miscellaneous Test Crossmatch 09/21/16 09/21/16 09/21/16 07:45 07:45 10:01 WBC 13.8 H RBC 2.94 L Hgb 7.5 L Hct 23.5 L MCV MCH 26 L MCHC RDW 21.2 H Plt Count Lymph % (Auto) 6.9 L [place] % (Auto) 9.4 H Lymph # 0.9 L [place] # 1.3 H Baso # Seg Neutrophils % 83.2 H Seg Neuts % (Manual) Lymphocytes % (Manual) Monocytes % (Manual) Eosinophils % (Manual) Basophils % (Manual) Nucleated RBC % Seg Neutrophils # 11.5 H Seg Neutrophils # Man Lymphocytes # (Manual) Monocytes # (Manual) Eosinophils # (Manual) Basophils # (Manual) PT INR Fibrinogen dRVVT Confirm Interp Factor V Activity POC ABG pH 7.308 L POC ABG pCO2 31.9 L POC ABG pO2 148 H ABG pO2 ABG HCO3 ABG Base Excess ABG Hemoglobin Oxyhemoglobin Sodium 147 H Potassium Chloride 114.2 H Carbon Dioxide 15 L BUN 120 H Creatinine 3.9 H Glucose 156 H POC Glucose Lactic Acid Calcium 8.2 L Phosphorus Magnesium Direct Bilirubin AST ALT Alkaline Phosphatase Lactate Dehydrogenase Troponin T C-Reactive Protein Total Protein Albumin Prealbumin Triglycerides Cholesterol LDL Cholesterol Direct HDL Cholesterol Urine pH Urine WBC (Auto) Urine Creatinine Urine Total Protein Fluid Total Protein Vancomycin Trough Rheumatoid Factor Complement C4 Miscellaneous Test Crossmatch 09/21/16 09/21/16 09/21/16 12:00 12:03 13:00 WBC RBC Hgb Hct MCV MCH MCHC RDW Plt Count Lymph % (Auto) [place] % (Auto) Lymph # [place] # Baso # Seg Neutrophils % Seg Neuts % (Manual) Lymphocytes % (Manual) Monocytes % (Manual) Eosinophils % (Manual) Basophils % (Manual) Nucleated RBC % Seg Neutrophils # Seg Neutrophils # Man Lymphocytes # (Manual) Monocytes # (Manual) Eosinophils # (Manual) Basophils # (Manual) PT INR Fibrinogen dRVVT Confirm Interp Factor V Activity POC ABG pH POC ABG pCO2 POC ABG pO2 ABG pO2 ABG HCO3 ABG Base Excess ABG Hemoglobin Oxyhemoglobin Sodium Potassium Chloride Carbon Dioxide BUN Creatinine Glucose POC Glucose 163 H Lactic Acid Calcium Phosphorus Magnesium Direct Bilirubin AST ALT Alkaline Phosphatase Lactate Dehydrogenase Troponin T C-Reactive Protein Total Protein Albumin Prealbumin Triglycerides Cholesterol LDL Cholesterol Direct HDL Cholesterol Urine pH Urine WBC (Auto) Urine Creatinine 54.8 H Urine Total Protein Fluid Total Protein Vancomycin Trough 2.3 L Rheumatoid Factor Complement C4 Miscellaneous Test Crossmatch 09/21/16 09/21/16 09/22/16 16:51 23:17 06:27 WBC RBC Hgb Hct MCV MCH MCHC RDW Plt Count Lymph % (Auto) [place] % (Auto) Lymph # [place] # Baso # Seg Neutrophils % Seg Neuts % (Manual) Lymphocytes % (Manual) Monocytes % (Manual) Eosinophils % (Manual) Basophils % (Manual) Nucleated RBC % Seg Neutrophils # Seg Neutrophils # Man Lymphocytes # (Manual) Monocytes # (Manual) Eosinophils # (Manual) Basophils # (Manual) PT INR Fibrinogen dRVVT Confirm Interp Factor V Activity POC ABG pH POC ABG pCO2 POC ABG pO2 ABG pO2 ABG HCO3 ABG Base Excess ABG Hemoglobin Oxyhemoglobin Sodium Potassium Chloride Carbon Dioxide BUN Creatinine Glucose POC Glucose 206 H 114 H 115 H Lactic Acid Calcium Phosphorus Magnesium Direct Bilirubin AST ALT Alkaline Phosphatase Lactate Dehydrogenase Troponin T C-Reactive Protein Total Protein Albumin Prealbumin Triglycerides Cholesterol LDL Cholesterol Direct HDL Cholesterol Urine pH Urine WBC (Auto) Urine Creatinine Urine Total Protein Fluid Total Protein Vancomycin Trough Rheumatoid Factor Complement C4 Miscellaneous Test Crossmatch 09/22/16 09/22/16 09/22/16 07:50 07:50 12:00 WBC 17.8 H RBC 3.04 L Hgb 8.0 L Hct 24.7 L MCV MCH 26 L MCHC RDW 21.6 H Plt Count Lymph % (Auto) [place] % (Auto) Lymph # [place] # Baso # Seg Neutrophils % Seg Neuts % (Manual) Lymphocytes % (Manual) Monocytes % (Manual) Eosinophils % (Manual) Basophils % (Manual) Nucleated RBC % Seg Neutrophils # Seg Neutrophils # Man Lymphocytes # (Manual) Monocytes # (Manual) Eosinophils # (Manual) Basophils # (Manual) PT INR Fibrinogen dRVVT Confirm Interp Factor V Activity POC ABG pH POC ABG pCO2 POC ABG pO2 ABG pO2 ABG HCO3 ABG Base Excess ABG Hemoglobin Oxyhemoglobin Sodium 150 H Potassium Chloride 118.2 H Carbon Dioxide 14 L BUN 111 H Creatinine 3.7 H Glucose 157 H POC Glucose 183 H Lactic Acid Calcium Phosphorus Magnesium Direct Bilirubin AST ALT Alkaline Phosphatase Lactate Dehydrogenase Troponin T C-Reactive Protein Total Protein Albumin Prealbumin Triglycerides Cholesterol LDL Cholesterol Direct HDL Cholesterol Urine pH Urine WBC (Auto) Urine Creatinine Urine Total Protein Fluid Total Protein Vancomycin Trough Rheumatoid Factor Complement C4 Miscellaneous Test Crossmatch 09/22/16 09/22/16 09/23/16 17:29 23:10 05:00 WBC 19.2 H RBC 3.13 L Hgb 8.0 L Hct 25.2 L MCV MCH 26 L MCHC RDW 22.1 H Plt Count Lymph % (Auto) [place] % (Auto) Lymph # [place] # Baso # Seg Neutrophils % Seg Neuts % (Manual) 92.0 H Lymphocytes % (Manual) 3.0 L Monocytes % (Manual) Eosinophils % (Manual) Basophils % (Manual) Nucleated RBC % Seg Neutrophils # Seg Neutrophils # Man 17.7 H Lymphocytes # (Manual) 0.6 L Monocytes # (Manual) Eosinophils # (Manual) Basophils # (Manual) PT INR Fibrinogen dRVVT Confirm Interp Factor V Activity POC ABG pH POC ABG pCO2 POC ABG pO2 ABG pO2 ABG HCO3 ABG Base Excess ABG Hemoglobin Oxyhemoglobin Sodium Potassium Chloride Carbon Dioxide BUN Creatinine Glucose POC Glucose 197 H 169 H Lactic Acid Calcium Phosphorus Magnesium Direct Bilirubin AST ALT Alkaline Phosphatase Lactate Dehydrogenase Troponin T C-Reactive Protein Total Protein Albumin Prealbumin Triglycerides Cholesterol LDL Cholesterol Direct HDL Cholesterol Urine pH Urine WBC (Auto) Urine Creatinine Urine Total Protein Fluid Total Protein Vancomycin Trough Rheumatoid Factor Complement C4 Miscellaneous Test Crossmatch 09/23/16 09/23/16 09/23/16 05:00 05:00 05:10 WBC RBC Hgb Hct MCV MCH MCHC RDW Plt Count Lymph % (Auto) [place] % (Auto) Lymph # [place] # Baso # Seg Neutrophils % Seg Neuts % (Manual) Lymphocytes % (Manual) Monocytes % (Manual) Eosinophils % (Manual) Basophils % (Manual) Nucleated RBC % Seg Neutrophils # Seg Neutrophils # Man Lymphocytes # (Manual) Monocytes # (Manual) Eosinophils # (Manual) Basophils # (Manual) PT INR Fibrinogen dRVVT Confirm Interp Factor V Activity POC ABG pH POC ABG pCO2 POC ABG pO2 ABG pO2 ABG HCO3 ABG Base Excess ABG Hemoglobin Oxyhemoglobin Sodium 147 H Potassium 3.2 L Chloride 115.7 H Carbon Dioxide 13 L BUN 111 H Creatinine 3.8 H Glucose 194 H POC Glucose 188 H Lactic Acid Calcium 7.3 L D Phosphorus Magnesium Direct Bilirubin AST ALT Alkaline Phosphatase Lactate Dehydrogenase Troponin T C-Reactive Protein 3.20 H Total Protein Albumin Prealbumin Triglycerides Cholesterol LDL Cholesterol Direct HDL Cholesterol Urine pH Urine WBC (Auto) Urine Creatinine Urine Total Protein Fluid Total Protein Vancomycin Trough Rheumatoid Factor Complement C4 Miscellaneous Test Crossmatch 09/23/16 09/23/16 09/23/16 11:37 12:29 18:01 WBC RBC Hgb Hct MCV MCH MCHC RDW Plt Count Lymph % (Auto) [place] % (Auto) Lymph # [place] # Baso # Seg Neutrophils % Seg Neuts % (Manual) Lymphocytes % (Manual) Monocytes % (Manual) Eosinophils % (Manual) Basophils % (Manual) Nucleated RBC % Seg Neutrophils # Seg Neutrophils # Man Lymphocytes # (Manual) Monocytes # (Manual) Eosinophils # (Manual) Basophils # (Manual) PT INR Fibrinogen dRVVT Confirm Interp Factor V Activity POC ABG pH POC ABG pCO2 18.9 L POC ABG pO2 143 H ABG pO2 ABG HCO3 ABG Base Excess ABG Hemoglobin Oxyhemoglobin Sodium Potassium Chloride Carbon Dioxide BUN Creatinine Glucose POC Glucose 153 H 108 H Lactic Acid Calcium Phosphorus Magnesium Direct Bilirubin AST ALT Alkaline Phosphatase Lactate Dehydrogenase Troponin T C-Reactive Protein Total Protein Albumin Prealbumin Triglycerides Cholesterol LDL Cholesterol Direct HDL Cholesterol Urine pH Urine WBC (Auto) Urine Creatinine Urine Total Protein Fluid Total Protein Vancomycin Trough Rheumatoid Factor Complement C4 Miscellaneous Test Crossmatch 09/23/16 09/23/16 09/24/16 21:19 23:43 05:16 WBC RBC Hgb Hct MCV MCH MCHC RDW Plt Count Lymph % (Auto) [place] % (Auto) Lymph # [place] # Baso # Seg Neutrophils % Seg Neuts % (Manual) Lymphocytes % (Manual) Monocytes % (Manual) Eosinophils % (Manual) Basophils % (Manual) Nucleated RBC % Seg Neutrophils # Seg Neutrophils # Man Lymphocytes # (Manual) Monocytes # (Manual) Eosinophils # (Manual) Basophils # (Manual) PT INR Fibrinogen dRVVT Confirm Interp Factor V Activity POC ABG pH POC ABG pCO2 17.3 L POC ABG pO2 112 H ABG pO2 ABG HCO3 ABG Base Excess ABG Hemoglobin Oxyhemoglobin Sodium Potassium Chloride Carbon Dioxide BUN Creatinine Glucose POC Glucose 143 H 164 H Lactic Acid Calcium Phosphorus Magnesium Direct Bilirubin AST ALT Alkaline Phosphatase Lactate Dehydrogenase Troponin T C-Reactive Protein Total Protein Albumin Prealbumin Triglycerides Cholesterol LDL Cholesterol Direct HDL Cholesterol Urine pH Urine WBC (Auto) Urine Creatinine Urine Total Protein Fluid Total Protein Vancomycin Trough Rheumatoid Factor Complement C4 Miscellaneous Test Crossmatch 09/24/16 09/24/16 09/24/16 05:21 11:58 17:06 WBC RBC Hgb Hct MCV MCH MCHC RDW Plt Count Lymph % (Auto) [place] % (Auto) Lymph # [place] # Baso # Seg Neutrophils % Seg Neuts % (Manual) Lymphocytes % (Manual) Monocytes % (Manual) Eosinophils % (Manual) Basophils % (Manual) Nucleated RBC % Seg Neutrophils # Seg Neutrophils # Man Lymphocytes # (Manual) Monocytes # (Manual) Eosinophils # (Manual) Basophils # (Manual) PT INR Fibrinogen dRVVT Confirm Interp Factor V Activity POC ABG pH POC ABG pCO2 POC ABG pO2 ABG pO2 ABG HCO3 ABG Base Excess ABG Hemoglobin Oxyhemoglobin Sodium Potassium Chloride Carbon Dioxide 10 L BUN 103 H Creatinine 4.3 H Glucose 163 H POC Glucose 173 H 167 H Lactic Acid Calcium 6.5 L Phosphorus Magnesium Direct Bilirubin AST ALT Alkaline Phosphatase Lactate Dehydrogenase Troponin T C-Reactive Protein Total Protein Albumin Prealbumin Triglycerides Cholesterol LDL Cholesterol Direct HDL Cholesterol Urine pH Urine WBC (Auto) Urine Creatinine Urine Total Protein Fluid Total Protein Vancomycin Trough Rheumatoid Factor Complement C4 Miscellaneous Test Crossmatch 09/24/16 09/24/16 09/24/16 20:15 21:02 23:48 WBC RBC Hgb Hct MCV MCH MCHC RDW Plt Count Lymph % (Auto) [place] % (Auto) Lymph # [place] # Baso # Seg Neutrophils % Seg Neuts % (Manual) Lymphocytes % (Manual) Monocytes % (Manual) Eosinophils % (Manual) Basophils % (Manual) Nucleated RBC % Seg Neutrophils # Seg Neutrophils # Man Lymphocytes # (Manual) Monocytes # (Manual) Eosinophils # (Manual) Basophils # (Manual) PT INR Fibrinogen dRVVT Confirm Interp Factor V Activity POC ABG pH 7.288 L POC ABG pCO2 30.2 L 21.5 L POC ABG pO2 32 L 39 L ABG pO2 ABG HCO3 ABG Base Excess ABG Hemoglobin Oxyhemoglobin Sodium Potassium Chloride Carbon Dioxide BUN Creatinine Glucose POC Glucose 109 H Lactic Acid Calcium Phosphorus Magnesium Direct Bilirubin AST ALT Alkaline Phosphatase Lactate Dehydrogenase Troponin T C-Reactive Protein Total Protein Albumin Prealbumin Triglycerides Cholesterol LDL Cholesterol Direct HDL Cholesterol Urine pH Urine WBC (Auto) Urine Creatinine Urine Total Protein Fluid Total Protein Vancomycin Trough Rheumatoid Factor Complement C4 Miscellaneous Test Crossmatch 09/25/16 09/25/16 09/25/16 04:20 04:20 04:20 WBC RBC 2.58 L Hgb 7.0 L Hct 21.0 L MCV MCH 27 L MCHC RDW 23.8 H Plt Count Lymph % (Auto) [place] % (Auto) Lymph # [place] # Baso # Seg Neutrophils % Seg Neuts % (Manual) Lymphocytes % (Manual) 12.0 L Monocytes % (Manual) Eosinophils % (Manual) 7.0 H Basophils % (Manual) 2.0 H Nucleated RBC % Seg Neutrophils # Seg Neutrophils # Man Lymphocytes # (Manual) 0.9 L Monocytes # (Manual) Eosinophils # (Manual) 0.5 H Basophils # (Manual) PT INR Fibrinogen dRVVT Confirm Interp Factor V Activity POC ABG pH POC ABG pCO2 POC ABG pO2 ABG pO2 ABG HCO3 ABG Base Excess ABG Hemoglobin Oxyhemoglobin Sodium Potassium Chloride Carbon Dioxide 15 L BUN 72 H Creatinine 3.8 H Glucose POC Glucose Lactic Acid Calcium 6.0 L Phosphorus 4.60 H Magnesium 1.60 L Direct Bilirubin AST ALT Alkaline Phosphatase Lactate Dehydrogenase Troponin T C-Reactive Protein Total Protein Albumin Prealbumin Triglycerides Cholesterol LDL Cholesterol Direct HDL Cholesterol Urine pH Urine WBC (Auto) Urine Creatinine Urine Total Protein Fluid Total Protein Vancomycin Trough Rheumatoid Factor Complement C4 Miscellaneous Test Crossmatch 09/25/16 09/25/16 09/25/16 04:57 08:02 10:30 WBC RBC Hgb Hct MCV MCH MCHC RDW Plt Count Lymph % (Auto) [place] % (Auto) Lymph # [place] # Baso # Seg Neutrophils % Seg Neuts % (Manual) Lymphocytes % (Manual) Monocytes % (Manual) Eosinophils % (Manual) Basophils % (Manual) Nucleated RBC % Seg Neutrophils # Seg Neutrophils # Man Lymphocytes # (Manual) Monocytes # (Manual) Eosinophils # (Manual) Basophils # (Manual) PT INR Fibrinogen dRVVT Confirm Interp Factor V Activity POC ABG pH POC ABG pCO2 24.7 L POC ABG pO2 152 H ABG pO2 ABG HCO3 ABG Base Excess ABG Hemoglobin Oxyhemoglobin Sodium Potassium Chloride Carbon Dioxide BUN Creatinine Glucose POC Glucose 113 H Lactic Acid Calcium Phosphorus Magnesium Direct Bilirubin AST ALT Alkaline Phosphatase Lactate Dehydrogenase Troponin T C-Reactive Protein Total Protein Albumin Prealbumin Triglycerides Cholesterol LDL Cholesterol Direct HDL Cholesterol Urine pH Urine WBC (Auto) Urine Creatinine Urine Total Protein Fluid Total Protein Vancomycin Trough Rheumatoid Factor Complement C4 Miscellaneous Test Crossmatch See Detail 09/25/16 09/25/16 09/25/16 12:05 17:44 23:47 WBC RBC Hgb Hct MCV MCH MCHC RDW Plt Count Lymph % (Auto) [place] % (Auto) Lymph # [place] # Baso # Seg Neutrophils % Seg Neuts % (Manual) Lymphocytes % (Manual) Monocytes % (Manual) Eosinophils % (Manual) Basophils % (Manual) Nucleated RBC % Seg Neutrophils # Seg Neutrophils # Man Lymphocytes # (Manual) Monocytes # (Manual) Eosinophils # (Manual) Basophils # (Manual) PT INR Fibrinogen dRVVT Confirm Interp Factor V Activity POC ABG pH POC ABG pCO2 POC ABG pO2 ABG pO2 ABG HCO3 ABG Base Excess ABG Hemoglobin Oxyhemoglobin Sodium Potassium Chloride Carbon Dioxide BUN Creatinine Glucose POC Glucose 117 H 119 H 150 H Lactic Acid Calcium Phosphorus Magnesium Direct Bilirubin AST ALT Alkaline Phosphatase Lactate Dehydrogenase Troponin T C-Reactive Protein Total Protein Albumin Prealbumin Triglycerides Cholesterol LDL Cholesterol Direct HDL Cholesterol Urine pH Urine WBC (Auto) Urine Creatinine Urine Total Protein Fluid Total Protein Vancomycin Trough Rheumatoid Factor Complement C4 Miscellaneous Test Crossmatch 09/26/16 09/26/16 09/26/16 04:25 04:25 04:25 WBC RBC 2.65 L Hgb 7.4 L Hct 21.6 L MCV MCH MCHC RDW 22.5 H Plt Count Lymph % (Auto) [place] % (Auto) Lymph # [place] # Baso # Seg Neutrophils % Seg Neuts % (Manual) Lymphocytes % (Manual) 6.0 L Monocytes % (Manual) Eosinophils % (Manual) 11.0 H Basophils % (Manual) Nucleated RBC % Seg Neutrophils # Seg Neutrophils # Man Lymphocytes # (Manual) 0.4 L Monocytes # (Manual) Eosinophils # (Manual) 0.6 H Basophils # (Manual) PT INR Fibrinogen dRVVT Confirm Interp Factor V Activity POC ABG pH POC ABG pCO2 POC ABG pO2 ABG pO2 ABG HCO3 ABG Base Excess ABG Hemoglobin Oxyhemoglobin Sodium Potassium Chloride 97.0 L Carbon Dioxide 19 L BUN 43 H Creatinine 2.6 H Glucose 130 H POC Glucose Lactic Acid 4.40 H* Calcium 6.7 L Phosphorus Magnesium Direct Bilirubin AST ALT Alkaline Phosphatase Lactate Dehydrogenase Troponin T C-Reactive Protein Total Protein Albumin Prealbumin Triglycerides Cholesterol LDL Cholesterol Direct HDL Cholesterol Urine pH Urine WBC (Auto) Urine Creatinine Urine Total Protein Fluid Total Protein Vancomycin Trough Rheumatoid Factor Complement C4 Miscellaneous Test Crossmatch 09/26/16 09/26/16 09/26/16 05:20 11:44 12:12 WBC RBC Hgb Hct MCV MCH MCHC RDW Plt Count Lymph % (Auto) [place] % (Auto) Lymph # [place] # Baso # Seg Neutrophils % Seg Neuts % (Manual) Lymphocytes % (Manual) Monocytes % (Manual) Eosinophils % (Manual) Basophils % (Manual) Nucleated RBC % Seg Neutrophils # Seg Neutrophils # Man Lymphocytes # (Manual) Monocytes # (Manual) Eosinophils # (Manual) Basophils # (Manual) PT INR Fibrinogen dRVVT Confirm Interp Factor V Activity POC ABG pH POC ABG pCO2 27.0 L POC ABG pO2 69 L ABG pO2 ABG HCO3 ABG Base Excess ABG Hemoglobin Oxyhemoglobin Sodium Potassium Chloride Carbon Dioxide BUN Creatinine Glucose POC Glucose 121 H 128 H Lactic Acid Calcium Phosphorus Magnesium Direct Bilirubin AST ALT Alkaline Phosphatase Lactate Dehydrogenase Troponin T C-Reactive Protein Total Protein Albumin Prealbumin Triglycerides Cholesterol LDL Cholesterol Direct HDL Cholesterol Urine pH Urine WBC (Auto) Urine Creatinine Urine Total Protein Fluid Total Protein Vancomycin Trough Rheumatoid Factor Complement C4 Miscellaneous Test Crossmatch 09/26/16 09/26/16 09/27/16 18:31 23:40 08:20 WBC RBC Hgb Hct MCV MCH MCHC RDW Plt Count Lymph % (Auto) [place] % (Auto) Lymph # [place] # Baso # Seg Neutrophils % Seg Neuts % (Manual) Lymphocytes % (Manual) Monocytes % (Manual) Eosinophils % (Manual) Basophils % (Manual) Nucleated RBC % Seg Neutrophils # Seg Neutrophils # Man Lymphocytes # (Manual) Monocytes # (Manual) Eosinophils # (Manual) Basophils # (Manual) PT INR Fibrinogen dRVVT Confirm Interp Factor V Activity POC ABG pH POC ABG pCO2 POC ABG pO2 ABG pO2 ABG HCO3 ABG Base Excess ABG Hemoglobin Oxyhemoglobin Sodium Potassium Chloride Carbon Dioxide BUN Creatinine Glucose POC Glucose 120 H 133 H Lactic Acid 4.10 H* Calcium Phosphorus Magnesium Direct Bilirubin AST ALT Alkaline Phosphatase Lactate Dehydrogenase Troponin T C-Reactive Protein Total Protein Albumin Prealbumin Triglycerides Cholesterol LDL Cholesterol Direct HDL Cholesterol Urine pH Urine WBC (Auto) Urine Creatinine Urine Total Protein Fluid Total Protein Vancomycin Trough Rheumatoid Factor Complement C4 Miscellaneous Test Crossmatch 09/27/16 09/27/16 09/27/16 11:23 15:00 18:15 WBC RBC Hgb Hct MCV MCH MCHC RDW Plt Count Lymph % (Auto) [place] % (Auto) Lymph # [place] # Baso # Seg Neutrophils % Seg Neuts % (Manual) Lymphocytes % (Manual) Monocytes % (Manual) Eosinophils % (Manual) Basophils % (Manual) Nucleated RBC % Seg Neutrophils # Seg Neutrophils # Man Lymphocytes # (Manual) Monocytes # (Manual) Eosinophils # (Manual) Basophils # (Manual) PT INR Fibrinogen dRVVT Confirm Interp Factor V Activity POC ABG pH 7.459 H POC ABG pCO2 27.1 L POC ABG pO2 140 H ABG pO2 ABG HCO3 ABG Base Excess ABG Hemoglobin Oxyhemoglobin Sodium Potassium Chloride Carbon Dioxide BUN Creatinine Glucose POC Glucose 114 H 127 H Lactic Acid Calcium Phosphorus Magnesium Direct Bilirubin AST ALT Alkaline Phosphatase Lactate Dehydrogenase Troponin T C-Reactive Protein Total Protein Albumin Prealbumin Triglycerides Cholesterol LDL Cholesterol Direct HDL Cholesterol Urine pH Urine WBC (Auto) Urine Creatinine Urine Total Protein Fluid Total Protein Vancomycin Trough Rheumatoid Factor Complement C4 Miscellaneous Test Crossmatch 09/27/16 09/27/16 09/28/16 Unknown Unknown 03:45 WBC RBC 2.49 L Hgb 6.8 L Hct 20.7 L MCV MCH 27 L MCHC RDW 22.1 H Plt Count Lymph % (Auto) [place] % (Auto) Lymph # [place] # Baso # Seg Neutrophils % Seg Neuts % (Manual) 32.0 L Lymphocytes % (Manual) 12.0 L Monocytes % (Manual) 11.0 H Eosinophils % (Manual) 10.0 H Basophils % (Manual) Nucleated RBC % Seg Neutrophils # Seg Neutrophils # Man Lymphocytes # (Manual) 1.0 L Monocytes # (Manual) 0.9 H Eosinophils # (Manual) 0.8 H Basophils # (Manual) PT INR Fibrinogen dRVVT Confirm Interp Factor V Activity POC ABG pH POC ABG pCO2 POC ABG pO2 ABG pO2 ABG HCO3 ABG Base Excess ABG Hemoglobin Oxyhemoglobin Sodium 135 L 135 L Potassium 3.5 L Chloride 93.6 L 94.4 L Carbon Dioxide 17 L 21 L BUN 45 H 28 H Creatinine 3.3 H 2.5 H Glucose 106 H POC Glucose Lactic Acid Calcium 7.3 L 7.1 L Phosphorus Magnesium Direct Bilirubin AST ALT Alkaline Phosphatase Lactate Dehydrogenase Troponin T C-Reactive Protein Total Protein Albumin Prealbumin Triglycerides Cholesterol LDL Cholesterol Direct HDL Cholesterol Urine pH Urine WBC (Auto) Urine Creatinine Urine Total Protein Fluid Total Protein Vancomycin Trough Rheumatoid Factor Complement C4 Miscellaneous Test Crossmatch 09/28/16 09/28/16 09/28/16 03:45 07:25 11:58 WBC 13.3 H RBC 3.01 L Hgb 8.4 L Hct 25.0 L MCV MCH MCHC RDW 20.5 H Plt Count 128 L Lymph % (Auto) [place] % (Auto) Lymph # [place] # Baso # Seg Neutrophils % Seg Neuts % (Manual) Lymphocytes % (Manual) 7.0 L Monocytes % (Manual) Eosinophils % (Manual) 6.0 H Basophils % (Manual) Nucleated RBC % Seg Neutrophils # Seg Neutrophils # Man Lymphocytes # (Manual) 0.9 L Monocytes # (Manual) Eosinophils # (Manual) 0.8 H Basophils # (Manual) PT INR Fibrinogen dRVVT Confirm Interp Factor V Activity POC ABG pH POC ABG pCO2 POC ABG pO2 ABG pO2 ABG HCO3 ABG Base Excess ABG Hemoglobin Oxyhemoglobin Sodium Potassium Chloride Carbon Dioxide BUN Creatinine Glucose POC Glucose 121 H Lactic Acid 4.50 H* Calcium Phosphorus Magnesium Direct Bilirubin AST ALT Alkaline Phosphatase Lactate Dehydrogenase Troponin T C-Reactive Protein Total Protein Albumin Prealbumin Triglycerides Cholesterol LDL Cholesterol Direct HDL Cholesterol Urine pH Urine WBC (Auto) Urine Creatinine Urine Total Protein Fluid Total Protein Vancomycin Trough Rheumatoid Factor Complement C4 Miscellaneous Test Crossmatch 09/29/16 09/29/16 09/29/16 06:45 06:45 06:45 WBC 14.9 H RBC 2.74 L Hgb 7.6 L Hct 23.2 L MCV MCH MCHC RDW 20.5 H Plt Count 81 L Lymph % (Auto) [place] % (Auto) Lymph # [place] # Baso # Seg Neutrophils % Seg Neuts % (Manual) 81.0 H Lymphocytes % (Manual) 4.0 L Monocytes % (Manual) Eosinophils % (Manual) Basophils % (Manual) Nucleated RBC % Seg Neutrophils # Seg Neutrophils # Man 12.1 H Lymphocytes # (Manual) 0.6 L Monocytes # (Manual) Eosinophils # (Manual) Basophils # (Manual) PT INR Fibrinogen dRVVT Confirm Interp Factor V Activity POC ABG pH POC ABG pCO2 POC ABG pO2 ABG pO2 ABG HCO3 ABG Base Excess ABG Hemoglobin Oxyhemoglobin Sodium 133 L Potassium 3.4 L Chloride 92.5 L Carbon Dioxide 21 L BUN 33 H Creatinine 3.0 H Glucose POC Glucose Lactic Acid Calcium 6.6 L Phosphorus Magnesium 1.40 L Direct Bilirubin 0.9 H AST ALT Alkaline Phosphatase Lactate Dehydrogenase Troponin T C-Reactive Protein Total Protein 4.3 L Albumin 1.3 L Prealbumin Triglycerides Cholesterol LDL Cholesterol Direct HDL Cholesterol Urine pH Urine WBC (Auto) Urine Creatinine Urine Total Protein Fluid Total Protein Vancomycin Trough Rheumatoid Factor Complement C4 Miscellaneous Test Crossmatch 09/29/16 09/29/16 09/30/16 17:52 20:12 00:07 WBC RBC Hgb Hct MCV MCH MCHC RDW Plt Count Lymph % (Auto) [place] % (Auto) Lymph # [place] # Baso # Seg Neutrophils % Seg Neuts % (Manual) Lymphocytes % (Manual) Monocytes % (Manual) Eosinophils % (Manual) Basophils % (Manual) Nucleated RBC % Seg Neutrophils # Seg Neutrophils # Man Lymphocytes # (Manual) Monocytes # (Manual) Eosinophils # (Manual) Basophils # (Manual) PT INR Fibrinogen dRVVT Confirm Interp Factor V Activity POC ABG pH POC ABG pCO2 POC ABG pO2 ABG pO2 ABG HCO3 ABG Base Excess ABG Hemoglobin Oxyhemoglobin Sodium Potassium Chloride Carbon Dioxide BUN Creatinine Glucose POC Glucose 50 L 51 L Lactic Acid Calcium Phosphorus Magnesium Direct Bilirubin AST ALT Alkaline Phosphatase Lactate Dehydrogenase Troponin T 0.204 H* C-Reactive Protein Total Protein Albumin Prealbumin Triglycerides Cholesterol 31 L LDL Cholesterol Direct 4 L HDL Cholesterol 3 L Urine pH Urine WBC (Auto) Urine Creatinine Urine Total Protein Fluid Total Protein Vancomycin Trough Rheumatoid Factor Complement C4 Miscellaneous Test Crossmatch 09/30/16 09/30/16 09/30/16 01:30 05:15 06:10 WBC RBC Hgb Hct MCV MCH MCHC RDW Plt Count Lymph % (Auto) [place] % (Auto) Lymph # [place] # Baso # Seg Neutrophils % Seg Neuts % (Manual) Lymphocytes % (Manual) Monocytes % (Manual) Eosinophils % (Manual) Basophils % (Manual) Nucleated RBC % Seg Neutrophils # Seg Neutrophils # Man Lymphocytes # (Manual) Monocytes # (Manual) Eosinophils # (Manual) Basophils # (Manual) PT INR Fibrinogen dRVVT Confirm Interp Factor V Activity POC ABG pH POC ABG pCO2 POC ABG pO2 ABG pO2 ABG HCO3 ABG Base Excess ABG Hemoglobin Oxyhemoglobin Sodium 133 L Potassium 3.2 L Chloride 93.2 L Carbon Dioxide 19 L BUN 36 H Creatinine 3.2 H Glucose 104 H POC Glucose 167 H 146 H Lactic Acid Calcium 6.4 L Phosphorus Magnesium 1.60 L Direct Bilirubin AST ALT Alkaline Phosphatase Lactate Dehydrogenase Troponin T C-Reactive Protein Total Protein Albumin Prealbumin Triglycerides Cholesterol LDL Cholesterol Direct HDL Cholesterol Urine pH Urine WBC (Auto) Urine Creatinine Urine Total Protein Fluid Total Protein Vancomycin Trough Rheumatoid Factor Complement C4 Miscellaneous Test Crossmatch 09/30/16 09/30/16 09/30/16 11:26 13:39 18:38 WBC RBC Hgb Hct MCV MCH MCHC RDW Plt Count Lymph % (Auto) [place] % (Auto) Lymph # [place] # Baso # Seg Neutrophils % Seg Neuts % (Manual) Lymphocytes % (Manual) Monocytes % (Manual) Eosinophils % (Manual) Basophils % (Manual) Nucleated RBC % Seg Neutrophils # Seg Neutrophils # Man Lymphocytes # (Manual) Monocytes # (Manual) Eosinophils # (Manual) Basophils # (Manual) PT INR Fibrinogen dRVVT Confirm Interp Factor V Activity POC ABG pH 7.479 H POC ABG pCO2 29.8 L POC ABG pO2 117 H ABG pO2 ABG HCO3 ABG Base Excess ABG Hemoglobin Oxyhemoglobin Sodium Potassium Chloride Carbon Dioxide BUN Creatinine Glucose POC Glucose 140 H 122 H Lactic Acid Calcium Phosphorus Magnesium Direct Bilirubin AST ALT Alkaline Phosphatase Lactate Dehydrogenase Troponin T C-Reactive Protein Total Protein Albumin Prealbumin Triglycerides Cholesterol LDL Cholesterol Direct HDL Cholesterol Urine pH Urine WBC (Auto) Urine Creatinine Urine Total Protein Fluid Total Protein Vancomycin Trough Rheumatoid Factor Complement C4 Miscellaneous Test Crossmatch 10/01/16 10/01/16 10/01/16 06:00 06:00 12:37 WBC 12.6 H RBC 2.75 L Hgb 7.3 L Hct 23.3 L MCV MCH 27 L MCHC RDW 20.6 H Plt Count 72 L Lymph % (Auto) [place] % (Auto) Lymph # [place] # Baso # Seg Neutrophils % Seg Neuts % (Manual) 31.0 L Lymphocytes % (Manual) 8.0 L Monocytes % (Manual) Eosinophils % (Manual) Basophils % (Manual) Nucleated RBC % 3.0 H Seg Neutrophils # Seg Neutrophils # Man Lymphocytes # (Manual) 1.0 L Monocytes # (Manual) Eosinophils # (Manual) Basophils # (Manual) PT INR Fibrinogen dRVVT Confirm Interp Factor V Activity POC ABG pH POC ABG pCO2 POC ABG pO2 ABG pO2 ABG HCO3 ABG Base Excess ABG Hemoglobin Oxyhemoglobin Sodium 127 L Potassium Chloride 86.8 L Carbon Dioxide 20 L BUN 42 H Creatinine 3.5 H Glucose POC Glucose 65 L Lactic Acid Calcium 7.0 L Phosphorus Magnesium Direct Bilirubin AST ALT Alkaline Phosphatase Lactate Dehydrogenase Troponin T C-Reactive Protein Total Protein Albumin Prealbumin Triglycerides Cholesterol LDL Cholesterol Direct HDL Cholesterol Urine pH Urine WBC (Auto) Urine Creatinine Urine Total Protein Fluid Total Protein Vancomycin Trough Rheumatoid Factor Complement C4 Miscellaneous Test Crossmatch 10/01/16 10/01/16 10/02/16 17:39 23:32 00:59 WBC RBC Hgb Hct MCV MCH MCHC RDW Plt Count Lymph % (Auto) [place] % (Auto) Lymph # [place] # Baso # Seg Neutrophils % Seg Neuts % (Manual) Lymphocytes % (Manual) Monocytes % (Manual) Eosinophils % (Manual) Basophils % (Manual) Nucleated RBC % Seg Neutrophils # Seg Neutrophils # Man Lymphocytes # (Manual) Monocytes # (Manual) Eosinophils # (Manual) Basophils # (Manual) PT INR Fibrinogen dRVVT Confirm Interp Factor V Activity POC ABG pH POC ABG pCO2 POC ABG pO2 ABG pO2 ABG HCO3 ABG Base Excess ABG Hemoglobin Oxyhemoglobin Sodium Potassium Chloride Carbon Dioxide BUN Creatinine Glucose POC Glucose 107 H 52 L 145 H Lactic Acid Calcium Phosphorus Magnesium Direct Bilirubin AST ALT Alkaline Phosphatase Lactate Dehydrogenase Troponin T C-Reactive Protein Total Protein Albumin Prealbumin Triglycerides Cholesterol LDL Cholesterol Direct HDL Cholesterol Urine pH Urine WBC (Auto) Urine Creatinine Urine Total Protein Fluid Total Protein Vancomycin Trough Rheumatoid Factor Complement C4 Miscellaneous Test Crossmatch 10/02/16 10/02/16 10/02/16 10:30 10:50 10:50 WBC 14.7 H RBC 2.76 L Hgb 7.4 L Hct 23.6 L MCV MCH 27 L MCHC RDW 20.2 H Plt Count 79 L Lymph % (Auto) [place] % (Auto) Lymph # [place] # Baso # Seg Neutrophils % Seg Neuts % (Manual) 86.0 H Lymphocytes % (Manual) 6.0 L Monocytes % (Manual) Eosinophils % (Manual) Basophils % (Manual) Nucleated RBC % Seg Neutrophils # Seg Neutrophils # Man 12.6 H Lymphocytes # (Manual) 0.9 L Monocytes # (Manual) Eosinophils # (Manual) Basophils # (Manual) PT INR Fibrinogen dRVVT Confirm Interp Factor V Activity POC ABG pH 7.486 H POC ABG pCO2 30.1 L POC ABG pO2 108 H ABG pO2 ABG HCO3 ABG Base Excess ABG Hemoglobin Oxyhemoglobin Sodium 131 L Potassium 3.4 L Chloride 89.9 L Carbon Dioxide BUN 26 H Creatinine 2.6 H Glucose POC Glucose Lactic Acid Calcium 7.0 L Phosphorus Magnesium Direct Bilirubin AST ALT Alkaline Phosphatase Lactate Dehydrogenase Troponin T C-Reactive Protein Total Protein Albumin Prealbumin Triglycerides Cholesterol LDL Cholesterol Direct HDL Cholesterol Urine pH Urine WBC (Auto) Urine Creatinine Urine Total Protein Fluid Total Protein Vancomycin Trough Rheumatoid Factor Complement C4 Miscellaneous Test Crossmatch 10/02/16 10/03/16 10/03/16 23:45 00:45 05:10 WBC 12.9 H RBC 2.77 L Hgb 7.6 L Hct 23.7 L MCV MCH 27 L MCHC RDW 19.7 H Plt Count 89 L Lymph % (Auto) [place] % (Auto) Lymph # [place] # Baso # Seg Neutrophils % Seg Neuts % (Manual) Lymphocytes % (Manual) 8.0 L Monocytes % (Manual) Eosinophils % (Manual) Basophils % (Manual) Nucleated RBC % Seg Neutrophils # 11.9 H Seg Neutrophils # Man Lymphocytes # (Manual) 1.0 L Monocytes # (Manual) Eosinophils # (Manual) Basophils # (Manual) PT INR Fibrinogen dRVVT Confirm Interp Factor V Activity POC ABG pH POC ABG pCO2 POC ABG pO2 ABG pO2 ABG HCO3 ABG Base Excess ABG Hemoglobin Oxyhemoglobin Sodium Potassium Chloride Carbon Dioxide BUN Creatinine Glucose POC Glucose 55 L 199 H Lactic Acid Calcium Phosphorus Magnesium Direct Bilirubin AST ALT Alkaline Phosphatase Lactate Dehydrogenase Troponin T C-Reactive Protein Total Protein Albumin Prealbumin Triglycerides Cholesterol LDL Cholesterol Direct HDL Cholesterol Urine pH Urine WBC (Auto) Urine Creatinine Urine Total Protein Fluid Total Protein Vancomycin Trough Rheumatoid Factor Complement C4 Miscellaneous Test Crossmatch 10/03/16 10/03/16 10/03/16 05:10 12:14 13:18 WBC RBC Hgb Hct MCV MCH MCHC RDW Plt Count Lymph % (Auto) [place] % (Auto) Lymph # [place] # Baso # Seg Neutrophils % Seg Neuts % (Manual) Lymphocytes % (Manual) Monocytes % (Manual) Eosinophils % (Manual) Basophils % (Manual) Nucleated RBC % Seg Neutrophils # Seg Neutrophils # Man Lymphocytes # (Manual) Monocytes # (Manual) Eosinophils # (Manual) Basophils # (Manual) PT INR Fibrinogen dRVVT Confirm Interp Factor V Activity POC ABG pH POC ABG pCO2 POC ABG pO2 ABG pO2 ABG HCO3 ABG Base Excess ABG Hemoglobin Oxyhemoglobin Sodium 129 L Potassium 3.3 L Chloride 88.8 L Carbon Dioxide 20 L BUN 29 H Creatinine 2.8 H Glucose POC Glucose 68 L 127 H Lactic Acid Calcium 7.2 L Phosphorus Magnesium Direct Bilirubin AST ALT Alkaline Phosphatase Lactate Dehydrogenase Troponin T C-Reactive Protein Total Protein Albumin Prealbumin Triglycerides Cholesterol LDL Cholesterol Direct HDL Cholesterol Urine pH Urine WBC (Auto) Urine Creatinine Urine Total Protein Fluid Total Protein Vancomycin Trough Rheumatoid Factor Complement C4 Miscellaneous Test Crossmatch 10/03/16 10/03/16 10/03/16 14:42 18:21 19:09 WBC RBC Hgb Hct MCV MCH MCHC RDW Plt Count Lymph % (Auto) [place] % (Auto) Lymph # [place] # Baso # Seg Neutrophils % Seg Neuts % (Manual) Lymphocytes % (Manual) Monocytes % (Manual) Eosinophils % (Manual) Basophils % (Manual) Nucleated RBC % Seg Neutrophils # Seg Neutrophils # Man Lymphocytes # (Manual) Monocytes # (Manual) Eosinophils # (Manual) Basophils # (Manual) PT INR Fibrinogen dRVVT Confirm Interp Factor V Activity POC ABG pH 7.499 H POC ABG pCO2 28.4 L POC ABG pO2 44 L ABG pO2 ABG HCO3 ABG Base Excess ABG Hemoglobin Oxyhemoglobin Sodium Potassium Chloride Carbon Dioxide BUN Creatinine Glucose POC Glucose 64 L 205 H Lactic Acid Calcium Phosphorus Magnesium Direct Bilirubin AST ALT Alkaline Phosphatase Lactate Dehydrogenase Troponin T C-Reactive Protein Total Protein Albumin Prealbumin Triglycerides Cholesterol LDL Cholesterol Direct HDL Cholesterol Urine pH Urine WBC (Auto) Urine Creatinine Urine Total Protein Fluid Total Protein Vancomycin Trough Rheumatoid Factor Complement C4 Miscellaneous Test Crossmatch 10/03/16 10/04/16 10/04/16 23:33 04:18 06:30 WBC RBC 2.54 L Hgb 7.1 L Hct 21.7 L MCV MCH MCHC RDW 19.5 H Plt Count 76 L Lymph % (Auto) [place] % (Auto) Lymph # [place] # Baso # Seg Neutrophils % Seg Neuts % (Manual) 88.0 H Lymphocytes % (Manual) 6.0 L Monocytes % (Manual) Eosinophils % (Manual) Basophils % (Manual) Nucleated RBC % Seg Neutrophils # Seg Neutrophils # Man 8.8 H Lymphocytes # (Manual) 0.6 L Monocytes # (Manual) Eosinophils # (Manual) Basophils # (Manual) PT INR Fibrinogen dRVVT Confirm Interp Factor V Activity POC ABG pH 7.461 H POC ABG pCO2 33.6 L POC ABG pO2 211 H ABG pO2 ABG HCO3 ABG Base Excess ABG Hemoglobin Oxyhemoglobin Sodium Potassium Chloride Carbon Dioxide BUN Creatinine Glucose POC Glucose 136 H Lactic Acid Calcium Phosphorus Magnesium Direct Bilirubin AST ALT Alkaline Phosphatase Lactate Dehydrogenase Troponin T C-Reactive Protein Total Protein Albumin Prealbumin Triglycerides Cholesterol LDL Cholesterol Direct HDL Cholesterol Urine pH Urine WBC (Auto) Urine Creatinine Urine Total Protein Fluid Total Protein Vancomycin Trough Rheumatoid Factor Complement C4 Miscellaneous Test Crossmatch 10/04/16 10/04/16 10/04/16 06:30 11:45 17:54 WBC RBC Hgb Hct MCV MCH MCHC RDW Plt Count Lymph % (Auto) [place] % (Auto) Lymph # [place] # Baso # Seg Neutrophils % Seg Neuts % (Manual) Lymphocytes % (Manual) Monocytes % (Manual) Eosinophils % (Manual) Basophils % (Manual) Nucleated RBC % Seg Neutrophils # Seg Neutrophils # Man Lymphocytes # (Manual) Monocytes # (Manual) Eosinophils # (Manual) Basophils # (Manual) PT INR Fibrinogen dRVVT Confirm Interp Factor V Activity POC ABG pH POC ABG pCO2 POC ABG pO2 ABG pO2 ABG HCO3 ABG Base Excess ABG Hemoglobin Oxyhemoglobin Sodium 128 L Potassium Chloride 87.4 L Carbon Dioxide 20 L BUN 34 H Creatinine 2.9 H Glucose 127 H POC Glucose 158 H 160 H Lactic Acid Calcium 7.4 L Phosphorus Magnesium Direct Bilirubin AST ALT Alkaline Phosphatase Lactate Dehydrogenase Troponin T C-Reactive Protein Total Protein Albumin Prealbumin Triglycerides Cholesterol LDL Cholesterol Direct HDL Cholesterol Urine pH Urine WBC (Auto) Urine Creatinine Urine Total Protein Fluid Total Protein Vancomycin Trough Rheumatoid Factor Complement C4 Miscellaneous Test Crossmatch 10/04/16 10/05/16 10/05/16 23:25 04:30 05:00 WBC RBC 2.64 L Hgb 7.5 L Hct 22.6 L MCV MCH MCHC RDW 19.3 H Plt Count 80 L Lymph % (Auto) [place] % (Auto) Lymph # [place] # Baso # Seg Neutrophils % Seg Neuts % (Manual) Lymphocytes % (Manual) 12.0 L Monocytes % (Manual) Eosinophils % (Manual) Basophils % (Manual) Nucleated RBC % Seg Neutrophils # Seg Neutrophils # Man Lymphocytes # (Manual) Monocytes # (Manual) Eosinophils # (Manual) Basophils # (Manual) PT INR Fibrinogen dRVVT Confirm Interp Factor V Activity POC ABG pH 7.475 H POC ABG pCO2 33.3 L POC ABG pO2 140 H ABG pO2 ABG HCO3 ABG Base Excess ABG Hemoglobin Oxyhemoglobin Sodium Potassium Chloride Carbon Dioxide BUN Creatinine Glucose POC Glucose 141 H Lactic Acid Calcium Phosphorus Magnesium Direct Bilirubin AST ALT Alkaline Phosphatase Lactate Dehydrogenase Troponin T C-Reactive Protein Total Protein Albumin Prealbumin Triglycerides Cholesterol LDL Cholesterol Direct HDL Cholesterol Urine pH Urine WBC (Auto) Urine Creatinine Urine Total Protein Fluid Total Protein Vancomycin Trough Rheumatoid Factor Complement C4 Miscellaneous Test Crossmatch 10/05/16 10/05/16 10/05/16 05:00 05:09 12:58 WBC RBC Hgb Hct MCV MCH MCHC RDW Plt Count Lymph % (Auto) [place] % (Auto) Lymph # [place] # Baso # Seg Neutrophils % Seg Neuts % (Manual) Lymphocytes % (Manual) Monocytes % (Manual) Eosinophils % (Manual) Basophils % (Manual) Nucleated RBC % Seg Neutrophils # Seg Neutrophils # Man Lymphocytes # (Manual) Monocytes # (Manual) Eosinophils # (Manual) Basophils # (Manual) PT INR Fibrinogen dRVVT Confirm Interp Factor V Activity POC ABG pH POC ABG pCO2 POC ABG pO2 ABG pO2 ABG HCO3 ABG Base Excess ABG Hemoglobin Oxyhemoglobin Sodium 131 L Potassium Chloride 94.0 L Carbon Dioxide 20 L BUN 22 H Creatinine 2.0 H Glucose 123 H POC Glucose 166 H 179 H Lactic Acid Calcium 7.7 L Phosphorus 2.20 L D Magnesium Direct Bilirubin AST ALT Alkaline Phosphatase Lactate Dehydrogenase Troponin T C-Reactive Protein Total Protein Albumin Prealbumin Triglycerides Cholesterol LDL Cholesterol Direct HDL Cholesterol Urine pH Urine WBC (Auto) Urine Creatinine Urine Total Protein Fluid Total Protein Vancomycin Trough Rheumatoid Factor Complement C4 Miscellaneous Test Crossmatch 10/05/16 10/05/16 10/05/16 15:50 18:53 23:12 WBC RBC Hgb Hct MCV MCH MCHC RDW Plt Count Lymph % (Auto) [place] % (Auto) Lymph # [place] # Baso # Seg Neutrophils % Seg Neuts % (Manual) Lymphocytes % (Manual) Monocytes % (Manual) Eosinophils % (Manual) Basophils % (Manual) Nucleated RBC % Seg Neutrophils # Seg Neutrophils # Man Lymphocytes # (Manual) Monocytes # (Manual) Eosinophils # (Manual) Basophils # (Manual) PT INR Fibrinogen dRVVT Confirm Interp Factor V Activity POC ABG pH POC ABG pCO2 POC ABG pO2 ABG pO2 ABG HCO3 ABG Base Excess ABG Hemoglobin Oxyhemoglobin Sodium Potassium Chloride Carbon Dioxide BUN Creatinine Glucose POC Glucose 150 H 164 H Lactic Acid Calcium Phosphorus Magnesium Direct Bilirubin AST ALT Alkaline Phosphatase Lactate Dehydrogenase Troponin T C-Reactive Protein Total Protein Albumin Prealbumin Triglycerides Cholesterol LDL Cholesterol Direct HDL Cholesterol Urine pH Urine WBC (Auto) Urine Creatinine Urine Total Protein Fluid Total Protein Vancomycin Trough Rheumatoid Factor Complement C4 Miscellaneous Test Crossmatch See Detail 10/06/16 10/06/16 10/06/16 03:50 03:50 04:53 WBC RBC 3.00 L Hgb 8.6 L Hct 25.8 L MCV MCH MCHC RDW 17.9 H Plt Count 65 L Lymph % (Auto) [place] % (Auto) Lymph # [place] # Baso # Seg Neutrophils % Seg Neuts % (Manual) 30.0 L Lymphocytes % (Manual) 5.0 L Monocytes % (Manual) Eosinophils % (Manual) Basophils % (Manual) Nucleated RBC % Seg Neutrophils # Seg Neutrophils # Man Lymphocytes # (Manual) 0.4 L Monocytes # (Manual) Eosinophils # (Manual) Basophils # (Manual) PT INR Fibrinogen dRVVT Confirm Interp Factor V Activity POC ABG pH 7.310 L POC ABG pCO2 49.0 H POC ABG pO2 ABG pO2 ABG HCO3 ABG Base Excess ABG Hemoglobin Oxyhemoglobin Sodium 133 L Potassium Chloride 95.9 L Carbon Dioxide BUN 26 H Creatinine 2.0 H Glucose 116 H POC Glucose Lactic Acid Calcium 7.8 L Phosphorus Magnesium Direct Bilirubin AST ALT Alkaline Phosphatase Lactate Dehydrogenase Troponin T C-Reactive Protein Total Protein Albumin Prealbumin Triglycerides Cholesterol LDL Cholesterol Direct HDL Cholesterol Urine pH Urine WBC (Auto) Urine Creatinine Urine Total Protein Fluid Total Protein Vancomycin Trough Rheumatoid Factor Complement C4 Miscellaneous Test Crossmatch 10/06/16 10/06/16 10/06/16 05:23 11:52 18:34 WBC RBC Hgb Hct MCV MCH MCHC RDW Plt Count Lymph % (Auto) [place] % (Auto) Lymph # [place] # Baso # Seg Neutrophils % Seg Neuts % (Manual) Lymphocytes % (Manual) Monocytes % (Manual) Eosinophils % (Manual) Basophils % (Manual) Nucleated RBC % Seg Neutrophils # Seg Neutrophils # Man Lymphocytes # (Manual) Monocytes # (Manual) Eosinophils # (Manual) Basophils # (Manual) PT INR Fibrinogen dRVVT Confirm Interp Factor V Activity POC ABG pH POC ABG pCO2 POC ABG pO2 ABG pO2 ABG HCO3 ABG Base Excess ABG Hemoglobin Oxyhemoglobin Sodium Potassium Chloride Carbon Dioxide BUN Creatinine Glucose POC Glucose 126 H 116 H 129 H Lactic Acid Calcium Phosphorus Magnesium Direct Bilirubin AST ALT Alkaline Phosphatase Lactate Dehydrogenase Troponin T C-Reactive Protein Total Protein Albumin Prealbumin Triglycerides Cholesterol LDL Cholesterol Direct HDL Cholesterol Urine pH Urine WBC (Auto) Urine Creatinine Urine Total Protein Fluid Total Protein Vancomycin Trough Rheumatoid Factor Complement C4 Miscellaneous Test Crossmatch 10/07/16 10/07/16 10/07/16 03:45 05:00 10:00 WBC 17.0 H RBC 2.68 L Hgb 7.3 L Hct 25.3 L MCV MCH 27 L MCHC 29 L RDW 19.6 H Plt Count 74 L Lymph % (Auto) [place] % (Auto) Lymph # [place] # Baso # Seg Neutrophils % Seg Neuts % (Manual) Lymphocytes % (Manual) 12.0 L Monocytes % (Manual) Eosinophils % (Manual) Basophils % (Manual) Nucleated RBC % 4.0 H Seg Neutrophils # Seg Neutrophils # Man 10.7 H Lymphocytes # (Manual) Monocytes # (Manual) Eosinophils # (Manual) Basophils # (Manual) PT INR Fibrinogen dRVVT Confirm Interp Factor V Activity POC ABG pH POC ABG pCO2 POC ABG pO2 ABG pO2 ABG HCO3 ABG Base Excess ABG Hemoglobin Oxyhemoglobin Sodium 130 L Potassium 3.2 L Chloride 93.9 L Carbon Dioxide 20 L BUN 44 H Creatinine 2.7 H Glucose 129 H POC Glucose Lactic Acid Calcium 7.4 L Phosphorus Magnesium Direct Bilirubin AST ALT 6 L Alkaline Phosphatase 195 H Lactate Dehydrogenase Troponin T C-Reactive Protein Total Protein 4.9 L Albumin 1.0 L Prealbumin Triglycerides Cholesterol LDL Cholesterol Direct HDL Cholesterol Urine pH Urine WBC (Auto) Urine Creatinine Urine Total Protein Fluid Total Protein Vancomycin Trough Rheumatoid Factor Complement C4 Miscellaneous Test Flexitest 1 H Crossmatch 10/07/16 10/07/16 10/07/16 10:00 11:24 18:10 WBC RBC Hgb Hct MCV MCH MCHC RDW Plt Count Lymph % (Auto) [place] % (Auto) Lymph # [place] # Baso # Seg Neutrophils % Seg Neuts % (Manual) Lymphocytes % (Manual) Monocytes % (Manual) Eosinophils % (Manual) Basophils % (Manual) Nucleated RBC % Seg Neutrophils # Seg Neutrophils # Man Lymphocytes # (Manual) Monocytes # (Manual) Eosinophils # (Manual) Basophils # (Manual) PT INR Fibrinogen dRVVT Confirm Interp Factor V Activity POC ABG pH POC ABG pCO2 POC ABG pO2 ABG pO2 ABG HCO3 ABG Base Excess ABG Hemoglobin Oxyhemoglobin Sodium Potassium Chloride Carbon Dioxide BUN Creatinine Glucose POC Glucose 116 H 130 H Lactic Acid Calcium Phosphorus Magnesium Direct Bilirubin AST ALT Alkaline Phosphatase Lactate Dehydrogenase Troponin T C-Reactive Protein 19.40 H Total Protein Albumin Prealbumin Triglycerides Cholesterol LDL Cholesterol Direct HDL Cholesterol Urine pH Urine WBC (Auto) Urine Creatinine Urine Total Protein Fluid Total Protein Vancomycin Trough Rheumatoid Factor Complement C4 Miscellaneous Test Crossmatch 10/07/16 10/08/16 10/08/16 18:30 00:00 04:00 WBC RBC Hgb Hct MCV MCH MCHC RDW Plt Count Lymph % (Auto) [place] % (Auto) Lymph # [place] # Baso # Seg Neutrophils % Seg Neuts % (Manual) Lymphocytes % (Manual) Monocytes % (Manual) Eosinophils % (Manual) Basophils % (Manual) Nucleated RBC % Seg Neutrophils # Seg Neutrophils # Man Lymphocytes # (Manual) Monocytes # (Manual) Eosinophils # (Manual) Basophils # (Manual) PT INR Fibrinogen dRVVT Confirm Interp Factor V Activity POC ABG pH POC ABG pCO2 POC ABG pO2 ABG pO2 ABG HCO3 ABG Base Excess ABG Hemoglobin Oxyhemoglobin Sodium 132 L Potassium 3.3 L Chloride 93.6 L Carbon Dioxide 17 L BUN 59 H Creatinine 2.7 H Glucose 121 H POC Glucose 122 H Lactic Acid Calcium 7.6 L Phosphorus Magnesium Direct Bilirubin AST ALT Alkaline Phosphatase Lactate Dehydrogenase Troponin T C-Reactive Protein Total Protein Albumin Prealbumin Triglycerides Cholesterol LDL Cholesterol Direct HDL Cholesterol Urine pH Urine WBC (Auto) > 182.0 H Urine Creatinine Urine Total Protein Fluid Total Protein Vancomycin Trough Rheumatoid Factor Complement C4 Miscellaneous Test Crossmatch 10/08/16 10/08/16 10/08/16 04:30 05:30 11:51 WBC RBC 5.15 H Hgb 14.4 H D Hct 44.5 H D MCV MCH MCHC RDW 19.5 H Plt Count 56 L Lymph % (Auto) [place] % (Auto) Lymph # [place] # Baso # Seg Neutrophils % Seg Neuts % (Manual) 24.0 L Lymphocytes % (Manual) 8.0 L Monocytes % (Manual) Eosinophils % (Manual) Basophils % (Manual) Nucleated RBC % 9.0 H Seg Neutrophils # Seg Neutrophils # Man Lymphocytes # (Manual) 0.7 L Monocytes # (Manual) Eosinophils # (Manual) Basophils # (Manual) PT INR Fibrinogen dRVVT Confirm Interp Factor V Activity POC ABG pH POC ABG pCO2 POC ABG pO2 ABG pO2 ABG HCO3 ABG Base Excess ABG Hemoglobin Oxyhemoglobin Sodium Potassium Chloride Carbon Dioxide BUN Creatinine Glucose POC Glucose 125 H 150 H Lactic Acid Calcium Phosphorus Magnesium Direct Bilirubin AST ALT Alkaline Phosphatase Lactate Dehydrogenase Troponin T C-Reactive Protein Total Protein Albumin Prealbumin Triglycerides Cholesterol LDL Cholesterol Direct HDL Cholesterol Urine pH Urine WBC (Auto) Urine Creatinine Urine Total Protein Fluid Total Protein Vancomycin Trough Rheumatoid Factor Complement C4 Miscellaneous Test Crossmatch 10/08/16 10/08/16 10/08/16 12:49 17:07 19:30 WBC RBC Hgb 7.1 L D Hct 22.4 L D MCV MCH MCHC RDW Plt Count Lymph % (Auto) [place] % (Auto) Lymph # [place] # Baso # Seg Neutrophils % Seg Neuts % (Manual) Lymphocytes % (Manual) Monocytes % (Manual) Eosinophils % (Manual) Basophils % (Manual) Nucleated RBC % Seg Neutrophils # Seg Neutrophils # Man Lymphocytes # (Manual) Monocytes # (Manual) Eosinophils # (Manual) Basophils # (Manual) PT INR Fibrinogen dRVVT Confirm Interp Factor V Activity POC ABG pH POC ABG pCO2 28.2 L POC ABG pO2 111 H ABG pO2 ABG HCO3 ABG Base Excess ABG Hemoglobin Oxyhemoglobin Sodium Potassium Chloride Carbon Dioxide BUN Creatinine Glucose POC Glucose 145 H Lactic Acid Calcium Phosphorus Magnesium Direct Bilirubin AST ALT Alkaline Phosphatase Lactate Dehydrogenase Troponin T C-Reactive Protein Total Protein Albumin Prealbumin Triglycerides Cholesterol LDL Cholesterol Direct HDL Cholesterol Urine pH Urine WBC (Auto) Urine Creatinine Urine Total Protein Fluid Total Protein Vancomycin Trough Rheumatoid Factor Complement C4 Miscellaneous Test Crossmatch 10/08/16 10/09/16 10/09/16 19:30 03:45 03:45 WBC 12.6 H RBC 2.36 L Hgb 6.7 L Hct 21.1 L MCV MCH MCHC RDW 19.5 H Plt Count 75 L Lymph % (Auto) [place] % (Auto) Lymph # [place] # Baso # Seg Neutrophils % Seg Neuts % (Manual) Lymphocytes % (Manual) Monocytes % (Manual) 10.0 H Eosinophils % (Manual) Basophils % (Manual) Nucleated RBC % 3.0 H Seg Neutrophils # Seg Neutrophils # Man Lymphocytes # (Manual) Monocytes # (Manual) 1.3 H Eosinophils # (Manual) Basophils # (Manual) PT 18.0 H INR 1.41 H Fibrinogen dRVVT Confirm Interp Factor V Activity POC ABG pH POC ABG pCO2 POC ABG pO2 ABG pO2 ABG HCO3 ABG Base Excess ABG Hemoglobin Oxyhemoglobin Sodium 135 L Potassium Chloride Carbon Dioxide 17 L BUN 81 H Creatinine 3.2 H Glucose 109 H POC Glucose Lactic Acid Calcium 7.4 L Phosphorus 4.60 H D Magnesium Direct Bilirubin AST ALT Alkaline Phosphatase Lactate Dehydrogenase Troponin T C-Reactive Protein Total Protein Albumin Prealbumin Triglycerides Cholesterol LDL Cholesterol Direct HDL Cholesterol Urine pH Urine WBC (Auto) Urine Creatinine Urine Total Protein Fluid Total Protein Vancomycin Trough Rheumatoid Factor Complement C4 Miscellaneous Test Crossmatch 10/09/16 10/09/16 10/09/16 03:45 05:14 07:20 WBC RBC Hgb Hct MCV MCH MCHC RDW Plt Count Lymph % (Auto) [place] % (Auto) Lymph # [place] # Baso # Seg Neutrophils % Seg Neuts % (Manual) Lymphocytes % (Manual) Monocytes % (Manual) Eosinophils % (Manual) Basophils % (Manual) Nucleated RBC % Seg Neutrophils # Seg Neutrophils # Man Lymphocytes # (Manual) Monocytes # (Manual) Eosinophils # (Manual) Basophils # (Manual) PT 19.0 H INR 1.51 H Fibrinogen dRVVT Confirm Interp Factor V Activity POC ABG pH POC ABG pCO2 POC ABG pO2 ABG pO2 ABG HCO3 ABG Base Excess ABG Hemoglobin Oxyhemoglobin Sodium Potassium Chloride Carbon Dioxide BUN Creatinine Glucose POC Glucose 151 H Lactic Acid Calcium Phosphorus Magnesium Direct Bilirubin AST ALT Alkaline Phosphatase Lactate Dehydrogenase Troponin T C-Reactive Protein Total Protein Albumin Prealbumin Triglycerides Cholesterol LDL Cholesterol Direct HDL Cholesterol Urine pH Urine WBC (Auto) Urine Creatinine Urine Total Protein Fluid Total Protein Vancomycin Trough Rheumatoid Factor Complement C4 Miscellaneous Test Crossmatch See Detail 10/09/16 10/09/16 10/09/16 11:46 16:20 16:43 WBC RBC Hgb 7.2 L Hct 22.2 L MCV MCH MCHC RDW Plt Count Lymph % (Auto) [place] % (Auto) Lymph # [place] # Baso # Seg Neutrophils % Seg Neuts % (Manual) Lymphocytes % (Manual) Monocytes % (Manual) Eosinophils % (Manual) Basophils % (Manual) Nucleated RBC % Seg Neutrophils # Seg Neutrophils # Man Lymphocytes # (Manual) Monocytes # (Manual) Eosinophils # (Manual) Basophils # (Manual) PT INR Fibrinogen dRVVT Confirm Interp Factor V Activity POC ABG pH POC ABG pCO2 POC ABG pO2 ABG pO2 ABG HCO3 ABG Base Excess ABG Hemoglobin Oxyhemoglobin Sodium Potassium Chloride Carbon Dioxide BUN Creatinine Glucose POC Glucose 133 H 141 H Lactic Acid Calcium Phosphorus Magnesium Direct Bilirubin AST ALT Alkaline Phosphatase Lactate Dehydrogenase Troponin T C-Reactive Protein Total Protein Albumin Prealbumin Triglycerides Cholesterol LDL Cholesterol Direct HDL Cholesterol Urine pH Urine WBC (Auto) Urine Creatinine Urine Total Protein Fluid Total Protein Vancomycin Trough Rheumatoid Factor Complement C4 Miscellaneous Test Crossmatch 10/10/16 10/10/16 10/10/16 05:00 05:00 11:19 WBC 18.5 H RBC 2.19 L Hgb 6.4 L Hct 19.6 L* MCV MCH MCHC RDW 19.3 H Plt Count 93 L Lymph % (Auto) [place] % (Auto) Lymph # [place] # Baso # Seg Neutrophils % Seg Neuts % (Manual) Lymphocytes % (Manual) 10.0 L Monocytes % (Manual) Eosinophils % (Manual) Basophils % (Manual) Nucleated RBC % 4.0 H Seg Neutrophils # Seg Neutrophils # Man 11.3 H Lymphocytes # (Manual) Monocytes # (Manual) Eosinophils # (Manual) Basophils # (Manual) PT INR Fibrinogen dRVVT Confirm Interp Factor V Activity POC ABG pH POC ABG pCO2 POC ABG pO2 ABG pO2 ABG HCO3 ABG Base Excess ABG Hemoglobin Oxyhemoglobin Sodium Potassium 5.7 H D Chloride Carbon Dioxide 16 L BUN 94 H Creatinine 3.1 H Glucose 131 H POC Glucose 153 H Lactic Acid Calcium 8.2 L Phosphorus 5.10 H Magnesium 2.40 H Direct Bilirubin 0.3 H AST ALT < 5 L Alkaline Phosphatase 319 H Lactate Dehydrogenase Troponin T C-Reactive Protein Total Protein 5.1 L Albumin 1.0 L Prealbumin Triglycerides Cholesterol LDL Cholesterol Direct HDL Cholesterol Urine pH Urine WBC (Auto) Urine Creatinine Urine Total Protein Fluid Total Protein Vancomycin Trough Rheumatoid Factor Complement C4 Miscellaneous Test Crossmatch 10/10/16 10/10/16 10/11/16 17:50 23:30 04:15 WBC RBC Hgb Hct MCV MCH MCHC RDW Plt Count Lymph % (Auto) [place] % (Auto) Lymph # [place] # Baso # Seg Neutrophils % Seg Neuts % (Manual) Lymphocytes % (Manual) Monocytes % (Manual) Eosinophils % (Manual) Basophils % (Manual) Nucleated RBC % Seg Neutrophils # Seg Neutrophils # Man Lymphocytes # (Manual) Monocytes # (Manual) Eosinophils # (Manual) Basophils # (Manual) PT INR Fibrinogen dRVVT Confirm Interp Factor V Activity POC ABG pH POC ABG pCO2 POC ABG pO2 ABG pO2 ABG HCO3 ABG Base Excess ABG Hemoglobin Oxyhemoglobin Sodium Potassium Chloride 96.4 L Carbon Dioxide 21 L BUN 57 H Creatinine 2.1 H Glucose 151 H POC Glucose 146 H 141 H Lactic Acid Calcium 8.3 L Phosphorus Magnesium Direct Bilirubin AST ALT Alkaline Phosphatase Lactate Dehydrogenase Troponin T C-Reactive Protein Total Protein Albumin Prealbumin Triglycerides Cholesterol LDL Cholesterol Direct HDL Cholesterol Urine pH Urine WBC (Auto) Urine Creatinine Urine Total Protein Fluid Total Protein Vancomycin Trough Rheumatoid Factor Complement C4 Miscellaneous Test Crossmatch 10/11/16 10/11/16 10/11/16 04:15 04:15 05:30 WBC 28.3 H RBC 3.12 L Hgb 9.3 L Hct 28.7 L D MCV MCH MCHC RDW 17.7 H Plt Count 128 L Lymph % (Auto) [place] % (Auto) Lymph # [place] # Baso # Seg Neutrophils % Seg Neuts % (Manual) Lymphocytes % (Manual) Monocytes % (Manual) Eosinophils % (Manual) Basophils % (Manual) Nucleated RBC % Seg Neutrophils # Seg Neutrophils # Man Lymphocytes # (Manual) Monocytes # (Manual) Eosinophils # (Manual) Basophils # (Manual) PT INR Fibrinogen dRVVT Confirm Interp Factor V Activity POC ABG pH POC ABG pCO2 POC ABG pO2 ABG pO2 ABG HCO3 ABG Base Excess ABG Hemoglobin Oxyhemoglobin Sodium Potassium Chloride Carbon Dioxide BUN Creatinine Glucose POC Glucose 167 H Lactic Acid Calcium Phosphorus Magnesium Direct Bilirubin AST ALT Alkaline Phosphatase Lactate Dehydrogenase Troponin T C-Reactive Protein 15.80 H Total Protein Albumin Prealbumin Triglycerides Cholesterol LDL Cholesterol Direct HDL Cholesterol Urine pH Urine WBC (Auto) Urine Creatinine Urine Total Protein Fluid Total Protein Vancomycin Trough Rheumatoid Factor Complement C4 Miscellaneous Test Crossmatch 10/11/16 10/11/16 10/11/16 11:40 15:49 23:57 WBC RBC Hgb Hct MCV MCH MCHC RDW Plt Count Lymph % (Auto) [place] % (Auto) Lymph # [place] # Baso # Seg Neutrophils % Seg Neuts % (Manual) Lymphocytes % (Manual) Monocytes % (Manual) Eosinophils % (Manual) Basophils % (Manual) Nucleated RBC % Seg Neutrophils # Seg Neutrophils # Man Lymphocytes # (Manual) Monocytes # (Manual) Eosinophils # (Manual) Basophils # (Manual) PT INR Fibrinogen dRVVT Confirm Interp Factor V Activity POC ABG pH POC ABG pCO2 POC ABG pO2 ABG pO2 ABG HCO3 ABG Base Excess ABG Hemoglobin Oxyhemoglobin Sodium Potassium Chloride Carbon Dioxide BUN Creatinine Glucose POC Glucose 139 H 168 H 161 H Lactic Acid Calcium Phosphorus Magnesium Direct Bilirubin AST ALT Alkaline Phosphatase Lactate Dehydrogenase Troponin T C-Reactive Protein Total Protein Albumin Prealbumin Triglycerides Cholesterol LDL Cholesterol Direct HDL Cholesterol Urine pH Urine WBC (Auto) Urine Creatinine Urine Total Protein Fluid Total Protein Vancomycin Trough Rheumatoid Factor Complement C4 Miscellaneous Test Crossmatch 10/12/16 10/12/16 10/12/16 04:40 04:40 05:44 WBC 22.5 H RBC 2.88 L Hgb 8.8 L Hct 26.8 L MCV MCH MCHC RDW 17.8 H Plt Count Lymph % (Auto) [place] % (Auto) Lymph # [place] # Baso # Seg Neutrophils % Seg Neuts % (Manual) Lymphocytes % (Manual) Monocytes % (Manual) Eosinophils % (Manual) Basophils % (Manual) Nucleated RBC % Seg Neutrophils # Seg Neutrophils # Man Lymphocytes # (Manual) Monocytes # (Manual) Eosinophils # (Manual) Basophils # (Manual) PT INR Fibrinogen dRVVT Confirm Interp Factor V Activity POC ABG pH POC ABG pCO2 POC ABG pO2 ABG pO2 ABG HCO3 ABG Base Excess ABG Hemoglobin Oxyhemoglobin Sodium 134 L Potassium Chloride 93.0 L Carbon Dioxide BUN 74 H Creatinine 2.5 H Glucose 137 H POC Glucose 158 H Lactic Acid Calcium 8.2 L Phosphorus Magnesium Direct Bilirubin AST ALT Alkaline Phosphatase Lactate Dehydrogenase Troponin T C-Reactive Protein Total Protein Albumin Prealbumin Triglycerides Cholesterol LDL Cholesterol Direct HDL Cholesterol Urine pH Urine WBC (Auto) Urine Creatinine Urine Total Protein Fluid Total Protein Vancomycin Trough Rheumatoid Factor Complement C4 Miscellaneous Test Crossmatch 10/12/16 10/12/16 10/12/16 12:27 18:18 23:46 WBC RBC Hgb Hct MCV MCH MCHC RDW Plt Count Lymph % (Auto) [place] % (Auto) Lymph # [place] # Baso # Seg Neutrophils % Seg Neuts % (Manual) Lymphocytes % (Manual) Monocytes % (Manual) Eosinophils % (Manual) Basophils % (Manual) Nucleated RBC % Seg Neutrophils # Seg Neutrophils # Man Lymphocytes # (Manual) Monocytes # (Manual) Eosinophils # (Manual) Basophils # (Manual) PT INR Fibrinogen dRVVT Confirm Interp Factor V Activity POC ABG pH POC ABG pCO2 POC ABG pO2 ABG pO2 ABG HCO3 ABG Base Excess ABG Hemoglobin Oxyhemoglobin Sodium Potassium Chloride Carbon Dioxide BUN Creatinine Glucose POC Glucose 153 H 140 H 150 H Lactic Acid Calcium Phosphorus Magnesium Direct Bilirubin AST ALT Alkaline Phosphatase Lactate Dehydrogenase Troponin T C-Reactive Protein Total Protein Albumin Prealbumin Triglycerides Cholesterol LDL Cholesterol Direct HDL Cholesterol Urine pH Urine WBC (Auto) Urine Creatinine Urine Total Protein Fluid Total Protein Vancomycin Trough Rheumatoid Factor Complement C4 Miscellaneous Test Crossmatch 10/13/16 10/13/16 10/13/16 06:22 09:20 12:29 WBC RBC Hgb Hct MCV MCH MCHC RDW Plt Count Lymph % (Auto) [place] % (Auto) Lymph # [place] # Baso # Seg Neutrophils % Seg Neuts % (Manual) Lymphocytes % (Manual) Monocytes % (Manual) Eosinophils % (Manual) Basophils % (Manual) Nucleated RBC % Seg Neutrophils # Seg Neutrophils # Man Lymphocytes # (Manual) Monocytes # (Manual) Eosinophils # (Manual) Basophils # (Manual) PT INR Fibrinogen dRVVT Confirm Interp Factor V Activity POC ABG pH POC ABG pCO2 POC ABG pO2 ABG pO2 ABG HCO3 ABG Base Excess ABG Hemoglobin Oxyhemoglobin Sodium Potassium Chloride Carbon Dioxide BUN Creatinine Glucose POC Glucose 165 H 193 H Lactic Acid Calcium Phosphorus Magnesium Direct Bilirubin AST ALT Alkaline Phosphatase Lactate Dehydrogenase Troponin T C-Reactive Protein Total Protein Albumin Prealbumin Triglycerides Cholesterol LDL Cholesterol Direct HDL Cholesterol Urine pH Urine WBC (Auto) Urine Creatinine Urine Total Protein Fluid Total Protein Vancomycin Trough Rheumatoid Factor Complement C4 Miscellaneous Test Flexitest 1 H Crossmatch 10/13/16 10/13/16 10/13/16 18:09 Unknown Unknown WBC 23.4 H RBC 2.83 L Hgb 8.7 L Hct 26.1 L MCV MCH MCHC RDW 18.1 H Plt Count Lymph % (Auto) [place] % (Auto) Lymph # [place] # Baso # Seg Neutrophils % Seg Neuts % (Manual) Lymphocytes % (Manual) Monocytes % (Manual) Eosinophils % (Manual) Basophils % (Manual) Nucleated RBC % Seg Neutrophils # Seg Neutrophils # Man Lymphocytes # (Manual) Monocytes # (Manual) Eosinophils # (Manual) Basophils # (Manual) PT INR Fibrinogen dRVVT Confirm Interp Factor V Activity POC ABG pH POC ABG pCO2 POC ABG pO2 ABG pO2 ABG HCO3 ABG Base Excess ABG Hemoglobin Oxyhemoglobin Sodium Potassium Chloride 95.8 L Carbon Dioxide BUN 82 H Creatinine 2.6 H Glucose 152 H POC Glucose 166 H Lactic Acid Calcium Phosphorus Magnesium Direct Bilirubin AST ALT Alkaline Phosphatase Lactate Dehydrogenase Troponin T C-Reactive Protein Total Protein Albumin Prealbumin Triglycerides Cholesterol LDL Cholesterol Direct HDL Cholesterol Urine pH Urine WBC (Auto) Urine Creatinine Urine Total Protein Fluid Total Protein Vancomycin Trough Rheumatoid Factor Complement C4 Miscellaneous Test Crossmatch 10/14/16 10/14/16 10/14/16 05:38 06:35 08:10 WBC 20.7 H RBC 2.81 L Hgb 8.4 L Hct 27.2 L MCV MCH MCHC RDW 19.4 H Plt Count Lymph % (Auto) [place] % (Auto) Lymph # [place] # Baso # Seg Neutrophils % Seg Neuts % (Manual) Lymphocytes % (Manual) Monocytes % (Manual) Eosinophils % (Manual) Basophils % (Manual) Nucleated RBC % Seg Neutrophils # Seg Neutrophils # Man Lymphocytes # (Manual) Monocytes # (Manual) Eosinophils # (Manual) Basophils # (Manual) PT INR Fibrinogen dRVVT Confirm Interp Factor V Activity POC ABG pH POC ABG pCO2 POC ABG pO2 ABG pO2 ABG HCO3 ABG Base Excess ABG Hemoglobin Oxyhemoglobin Sodium Potassium Chloride Carbon Dioxide BUN 58 H Creatinine 1.9 H Glucose 169 H POC Glucose 195 H Lactic Acid Calcium Phosphorus Magnesium Direct Bilirubin AST ALT Alkaline Phosphatase Lactate Dehydrogenase Troponin T C-Reactive Protein Total Protein Albumin Prealbumin Triglycerides Cholesterol LDL Cholesterol Direct HDL Cholesterol Urine pH Urine WBC (Auto) Urine Creatinine Urine Total Protein Fluid Total Protein Vancomycin Trough Rheumatoid Factor Complement C4 Miscellaneous Test Crossmatch 10/14/16 10/14/16 10/14/16 11:44 17:13 23:28 WBC RBC Hgb Hct MCV MCH MCHC RDW Plt Count Lymph % (Auto) [place] % (Auto) Lymph # [place] # Baso # Seg Neutrophils % Seg Neuts % (Manual) Lymphocytes % (Manual) Monocytes % (Manual) Eosinophils % (Manual) Basophils % (Manual) Nucleated RBC % Seg Neutrophils # Seg Neutrophils # Man Lymphocytes # (Manual) Monocytes # (Manual) Eosinophils # (Manual) Basophils # (Manual) PT INR Fibrinogen dRVVT Confirm Interp Factor V Activity POC ABG pH POC ABG pCO2 POC ABG pO2 ABG pO2 ABG HCO3 ABG Base Excess ABG Hemoglobin Oxyhemoglobin Sodium Potassium Chloride Carbon Dioxide BUN Creatinine Glucose POC Glucose 174 H 121 H 151 H Lactic Acid Calcium Phosphorus Magnesium Direct Bilirubin AST ALT Alkaline Phosphatase Lactate Dehydrogenase Troponin T C-Reactive Protein Total Protein Albumin Prealbumin Triglycerides Cholesterol LDL Cholesterol Direct HDL Cholesterol Urine pH Urine WBC (Auto) Urine Creatinine Urine Total Protein Fluid Total Protein Vancomycin Trough Rheumatoid Factor Complement C4 Miscellaneous Test Crossmatch 10/15/16 10/15/16 10/15/16 05:06 12:26 17:48 WBC RBC Hgb Hct MCV MCH MCHC RDW Plt Count Lymph % (Auto) [place] % (Auto) Lymph # [place] # Baso # Seg Neutrophils % Seg Neuts % (Manual) Lymphocytes % (Manual) Monocytes % (Manual) Eosinophils % (Manual) Basophils % (Manual) Nucleated RBC % Seg Neutrophils # Seg Neutrophils # Man Lymphocytes # (Manual) Monocytes # (Manual) Eosinophils # (Manual) Basophils # (Manual) PT INR Fibrinogen dRVVT Confirm Interp Factor V Activity POC ABG pH POC ABG pCO2 POC ABG pO2 ABG pO2 ABG HCO3 ABG Base Excess ABG Hemoglobin Oxyhemoglobin Sodium Potassium Chloride Carbon Dioxide BUN Creatinine Glucose POC Glucose 151 H 149 H 153 H Lactic Acid Calcium Phosphorus Magnesium Direct Bilirubin AST ALT Alkaline Phosphatase Lactate Dehydrogenase Troponin T C-Reactive Protein Total Protein Albumin Prealbumin Triglycerides Cholesterol LDL Cholesterol Direct HDL Cholesterol Urine pH Urine WBC (Auto) Urine Creatinine Urine Total Protein Fluid Total Protein Vancomycin Trough Rheumatoid Factor Complement C4 Miscellaneous Test Crossmatch 10/15/16 10/15/16 10/16/16 Unknown Unknown 00:02 WBC 23.4 H RBC 2.78 L Hgb 8.5 L Hct 25.7 L MCV MCH MCHC RDW 18.7 H Plt Count Lymph % (Auto) [place] % (Auto) Lymph # [place] # Baso # Seg Neutrophils % Seg Neuts % (Manual) Lymphocytes % (Manual) Monocytes % (Manual) Eosinophils % (Manual) Basophils % (Manual) Nucleated RBC % Seg Neutrophils # Seg Neutrophils # Man Lymphocytes # (Manual) Monocytes # (Manual) Eosinophils # (Manual) Basophils # (Manual) PT INR Fibrinogen dRVVT Confirm Interp Factor V Activity POC ABG pH POC ABG pCO2 POC ABG pO2 ABG pO2 ABG HCO3 ABG Base Excess ABG Hemoglobin Oxyhemoglobin Sodium Potassium Chloride Carbon Dioxide BUN 73 H Creatinine 2.3 H Glucose 120 H POC Glucose 137 H Lactic Acid Calcium Phosphorus Magnesium Direct Bilirubin AST ALT Alkaline Phosphatase Lactate Dehydrogenase Troponin T C-Reactive Protein Total Protein Albumin Prealbumin Triglycerides Cholesterol LDL Cholesterol Direct HDL Cholesterol Urine pH Urine WBC (Auto) Urine Creatinine Urine Total Protein Fluid Total Protein Vancomycin Trough Rheumatoid Factor Complement C4 Miscellaneous Test Crossmatch 10/16/16 10/16/16 10/16/16 05:44 06:25 06:25 WBC 22.5 H RBC 2.76 L Hgb 8.3 L Hct 25.2 L MCV MCH MCHC RDW 18.3 H Plt Count Lymph % (Auto) [place] % (Auto) Lymph # [place] # Baso # Seg Neutrophils % Seg Neuts % (Manual) Lymphocytes % (Manual) Monocytes % (Manual) Eosinophils % (Manual) Basophils % (Manual) Nucleated RBC % Seg Neutrophils # Seg Neutrophils # Man Lymphocytes # (Manual) Monocytes # (Manual) Eosinophils # (Manual) Basophils # (Manual) PT INR Fibrinogen dRVVT Confirm Interp Factor V Activity POC ABG pH POC ABG pCO2 POC ABG pO2 ABG pO2 ABG HCO3 ABG Base Excess ABG Hemoglobin Oxyhemoglobin Sodium Potassium Chloride Carbon Dioxide BUN 92 H Creatinine 3.0 H Glucose 138 H POC Glucose 110 H Lactic Acid Calcium Phosphorus Magnesium Direct Bilirubin AST ALT Alkaline Phosphatase Lactate Dehydrogenase Troponin T C-Reactive Protein Total Protein Albumin Prealbumin Triglycerides Cholesterol LDL Cholesterol Direct HDL Cholesterol Urine pH Urine WBC (Auto) Urine Creatinine Urine Total Protein Fluid Total Protein Vancomycin Trough Rheumatoid Factor Complement C4 Miscellaneous Test Crossmatch 10/16/16 10/16/16 10/16/16 11:27 11:48 17:36 WBC RBC Hgb Hct MCV MCH MCHC RDW Plt Count Lymph % (Auto) [place] % (Auto) Lymph # [place] # Baso # Seg Neutrophils % Seg Neuts % (Manual) Lymphocytes % (Manual) Monocytes % (Manual) Eosinophils % (Manual) Basophils % (Manual) Nucleated RBC % Seg Neutrophils # Seg Neutrophils # Man Lymphocytes # (Manual) Monocytes # (Manual) Eosinophils # (Manual) Basophils # (Manual) PT INR Fibrinogen dRVVT Confirm Interp Factor V Activity POC ABG pH 7.582 H POC ABG pCO2 27.4 L POC ABG pO2 110 H ABG pO2 ABG HCO3 ABG Base Excess ABG Hemoglobin Oxyhemoglobin Sodium Potassium Chloride Carbon Dioxide BUN Creatinine Glucose POC Glucose 121 H 133 H Lactic Acid Calcium Phosphorus Magnesium Direct Bilirubin AST ALT Alkaline Phosphatase Lactate Dehydrogenase Troponin T C-Reactive Protein Total Protein Albumin Prealbumin Triglycerides Cholesterol LDL Cholesterol Direct HDL Cholesterol Urine pH Urine WBC (Auto) Urine Creatinine Urine Total Protein Fluid Total Protein Vancomycin Trough Rheumatoid Factor Complement C4 Miscellaneous Test Crossmatch 10/16/16 10/17/16 10/17/16 20:48 04:24 04:24 WBC 21.4 H RBC 2.72 L Hgb 8.0 L Hct 25.2 L MCV MCH MCHC RDW 18.0 H Plt Count Lymph % (Auto) [place] % (Auto) Lymph # [place] # Baso # Seg Neutrophils % Seg Neuts % (Manual) Lymphocytes % (Manual) Monocytes % (Manual) Eosinophils % (Manual) Basophils % (Manual) Nucleated RBC % Seg Neutrophils # Seg Neutrophils # Man Lymphocytes # (Manual) Monocytes # (Manual) Eosinophils # (Manual) Basophils # (Manual) PT INR Fibrinogen dRVVT Confirm Interp Factor V Activity POC ABG pH 7.561 H POC ABG pCO2 24.4 L POC ABG pO2 77 L ABG pO2 ABG HCO3 ABG Base Excess ABG Hemoglobin Oxyhemoglobin Sodium 148 H Potassium Chloride Carbon Dioxide BUN 104 H Creatinine 3.0 H Glucose 149 H POC Glucose Lactic Acid Calcium Phosphorus Magnesium Direct Bilirubin AST ALT Alkaline Phosphatase 138 H Lactate Dehydrogenase Troponin T C-Reactive Protein Total Protein 6.2 L Albumin 1.5 L Prealbumin Triglycerides Cholesterol LDL Cholesterol Direct HDL Cholesterol Urine pH Urine WBC (Auto) Urine Creatinine Urine Total Protein Fluid Total Protein Vancomycin Trough Rheumatoid Factor Complement C4 Miscellaneous Test Crossmatch 10/17/16 10/17/16 10/17/16 06:02 12:17 17:14 WBC RBC Hgb Hct MCV MCH MCHC RDW Plt Count Lymph % (Auto) [place] % (Auto) Lymph # [place] # Baso # Seg Neutrophils % Seg Neuts % (Manual) Lymphocytes % (Manual) Monocytes % (Manual) Eosinophils % (Manual) Basophils % (Manual) Nucleated RBC % Seg Neutrophils # Seg Neutrophils # Man Lymphocytes # (Manual) Monocytes # (Manual) Eosinophils # (Manual) Basophils # (Manual) PT INR Fibrinogen dRVVT Confirm Interp Factor V Activity POC ABG pH POC ABG pCO2 POC ABG pO2 ABG pO2 ABG HCO3 ABG Base Excess ABG Hemoglobin Oxyhemoglobin Sodium Potassium Chloride Carbon Dioxide BUN Creatinine Glucose POC Glucose 170 H 167 H 126 H Lactic Acid Calcium Phosphorus Magnesium Direct Bilirubin AST ALT Alkaline Phosphatase Lactate Dehydrogenase Troponin T C-Reactive Protein Total Protein Albumin Prealbumin Triglycerides Cholesterol LDL Cholesterol Direct HDL Cholesterol Urine pH Urine WBC (Auto) Urine Creatinine Urine Total Protein Fluid Total Protein Vancomycin Trough Rheumatoid Factor Complement C4 Miscellaneous Test Crossmatch 10/17/16 10/18/16 10/18/16 23:17 04:00 04:00 WBC 20.7 H RBC 2.47 L Hgb 7.4 L Hct 22.9 L MCV MCH MCHC RDW 17.5 H Plt Count Lymph % (Auto) [place] % (Auto) Lymph # [place] # Baso # Seg Neutrophils % Seg Neuts % (Manual) Lymphocytes % (Manual) Monocytes % (Manual) Eosinophils % (Manual) Basophils % (Manual) Nucleated RBC % Seg Neutrophils # Seg Neutrophils # Man Lymphocytes # (Manual) Monocytes # (Manual) Eosinophils # (Manual) Basophils # (Manual) PT INR Fibrinogen dRVVT Confirm Interp Factor V Activity POC ABG pH POC ABG pCO2 POC ABG pO2 ABG pO2 ABG HCO3 ABG Base Excess ABG Hemoglobin Oxyhemoglobin Sodium 149 H Potassium Chloride 107.9 H Carbon Dioxide 20 L BUN 117 H Creatinine 3.2 H Glucose 119 H POC Glucose 121 H Lactic Acid Calcium Phosphorus Magnesium Direct Bilirubin AST ALT Alkaline Phosphatase Lactate Dehydrogenase Troponin T C-Reactive Protein Total Protein Albumin Prealbumin Triglycerides Cholesterol LDL Cholesterol Direct HDL Cholesterol Urine pH Urine WBC (Auto) Urine Creatinine Urine Total Protein Fluid Total Protein Vancomycin Trough Rheumatoid Factor Complement C4 Miscellaneous Test Crossmatch 10/18/16 10/18/16 10/18/16 05:23 10:46 17:30 WBC RBC Hgb Hct MCV MCH MCHC RDW Plt Count Lymph % (Auto) [place] % (Auto) Lymph # [place] # Baso # Seg Neutrophils % Seg Neuts % (Manual) Lymphocytes % (Manual) Monocytes % (Manual) Eosinophils % (Manual) Basophils % (Manual) Nucleated RBC % Seg Neutrophils # Seg Neutrophils # Man Lymphocytes # (Manual) Monocytes # (Manual) Eosinophils # (Manual) Basophils # (Manual) PT INR Fibrinogen dRVVT Confirm Interp Factor V Activity POC ABG pH POC ABG pCO2 POC ABG pO2 ABG pO2 ABG HCO3 ABG Base Excess ABG Hemoglobin Oxyhemoglobin Sodium Potassium Chloride Carbon Dioxide BUN Creatinine Glucose POC Glucose 119 H 155 H 124 H Lactic Acid Calcium Phosphorus Magnesium Direct Bilirubin AST ALT Alkaline Phosphatase Lactate Dehydrogenase Troponin T C-Reactive Protein Total Protein Albumin Prealbumin Triglycerides Cholesterol LDL Cholesterol Direct HDL Cholesterol Urine pH Urine WBC (Auto) Urine Creatinine Urine Total Protein Fluid Total Protein Vancomycin Trough Rheumatoid Factor Complement C4 Miscellaneous Test Crossmatch 10/19/16 10/19/16 10/19/16 04:00 04:00 05:25 WBC 17.4 H RBC 2.54 L Hgb 7.7 L Hct 23.6 L MCV MCH MCHC RDW 17.3 H Plt Count Lymph % (Auto) [place] % (Auto) Lymph # [place] # Baso # Seg Neutrophils % Seg Neuts % (Manual) Lymphocytes % (Manual) Monocytes % (Manual) Eosinophils % (Manual) Basophils % (Manual) Nucleated RBC % Seg Neutrophils # Seg Neutrophils # Man Lymphocytes # (Manual) Monocytes # (Manual) Eosinophils # (Manual) Basophils # (Manual) PT INR Fibrinogen dRVVT Confirm Interp Factor V Activity POC ABG pH POC ABG pCO2 POC ABG pO2 ABG pO2 ABG HCO3 ABG Base Excess ABG Hemoglobin Oxyhemoglobin Sodium Potassium Chloride Carbon Dioxide BUN 72 H Creatinine 2.1 H Glucose 116 H POC Glucose 119 H Lactic Acid Calcium Phosphorus Magnesium Direct Bilirubin AST ALT Alkaline Phosphatase Lactate Dehydrogenase Troponin T C-Reactive Protein Total Protein Albumin Prealbumin Triglycerides Cholesterol LDL Cholesterol Direct HDL Cholesterol Urine pH Urine WBC (Auto) Urine Creatinine Urine Total Protein Fluid Total Protein Vancomycin Trough Rheumatoid Factor Complement C4 Miscellaneous Test Crossmatch 10/19/16 10/19/16 10/20/16 11:46 23:59 06:00 WBC RBC Hgb Hct MCV MCH MCHC RDW Plt Count Lymph % (Auto) [place] % (Auto) Lymph # [place] # Baso # Seg Neutrophils % Seg Neuts % (Manual) Lymphocytes % (Manual) Monocytes % (Manual) Eosinophils % (Manual) Basophils % (Manual) Nucleated RBC % Seg Neutrophils # Seg Neutrophils # Man Lymphocytes # (Manual) Monocytes # (Manual) Eosinophils # (Manual) Basophils # (Manual) PT INR Fibrinogen dRVVT Confirm Interp Factor V Activity POC ABG pH POC ABG pCO2 POC ABG pO2 ABG pO2 ABG HCO3 ABG Base Excess ABG Hemoglobin Oxyhemoglobin Sodium Potassium Chloride Carbon Dioxide 17 L BUN 94 H Creatinine 2.7 H Glucose POC Glucose 116 H 117 H Lactic Acid Calcium Phosphorus Magnesium Direct Bilirubin AST ALT Alkaline Phosphatase Lactate Dehydrogenase Troponin T C-Reactive Protein Total Protein Albumin Prealbumin Triglycerides Cholesterol LDL Cholesterol Direct HDL Cholesterol Urine pH Urine WBC (Auto) Urine Creatinine Urine Total Protein Fluid Total Protein Vancomycin Trough Rheumatoid Factor Complement C4 Miscellaneous Test Crossmatch 10/20/16 10/20/16 10/20/16 06:00 11:49 16:00 WBC 19.7 H RBC 2.51 L Hgb 7.7 L Hct 23.5 L MCV MCH MCHC RDW 17.5 H Plt Count Lymph % (Auto) [place] % (Auto) Lymph # [place] # Baso # Seg Neutrophils % Seg Neuts % (Manual) Lymphocytes % (Manual) Monocytes % (Manual) Eosinophils % (Manual) Basophils % (Manual) Nucleated RBC % Seg Neutrophils # Seg Neutrophils # Man Lymphocytes # (Manual) Monocytes # (Manual) Eosinophils # (Manual) Basophils # (Manual) PT INR Fibrinogen dRVVT Confirm Interp Factor V Activity POC ABG pH POC ABG pCO2 POC ABG pO2 ABG pO2 ABG HCO3 ABG Base Excess ABG Hemoglobin Oxyhemoglobin Sodium Potassium Chloride Carbon Dioxide BUN Creatinine Glucose POC Glucose 117 H Lactic Acid Calcium Phosphorus Magnesium Direct Bilirubin AST ALT Alkaline Phosphatase Lactate Dehydrogenase Troponin T C-Reactive Protein Total Protein Albumin Prealbumin Triglycerides Cholesterol LDL Cholesterol Direct HDL Cholesterol Urine pH Urine WBC (Auto) Urine Creatinine Urine Total Protein Fluid Total Protein Vancomycin Trough Rheumatoid Factor Complement C4 Miscellaneous Test Flexitest 1 H Crossmatch 10/20/16 10/20/16 10/21/16 18:36 23:39 04:00 WBC RBC Hgb Hct MCV MCH MCHC RDW Plt Count Lymph % (Auto) [place] % (Auto) Lymph # [place] # Baso # Seg Neutrophils % Seg Neuts % (Manual) Lymphocytes % (Manual) Monocytes % (Manual) Eosinophils % (Manual) Basophils % (Manual) Nucleated RBC % Seg Neutrophils # Seg Neutrophils # Man Lymphocytes # (Manual) Monocytes # (Manual) Eosinophils # (Manual) Basophils # (Manual) PT INR Fibrinogen dRVVT Confirm Interp Factor V Activity POC ABG pH POC ABG pCO2 POC ABG pO2 ABG pO2 ABG HCO3 ABG Base Excess ABG Hemoglobin Oxyhemoglobin Sodium Potassium 5.4 H D Chloride Carbon Dioxide 15 L BUN 110 H Creatinine 3.0 H Glucose POC Glucose 127 H 114 H Lactic Acid Calcium Phosphorus Magnesium Direct Bilirubin AST ALT Alkaline Phosphatase Lactate Dehydrogenase Troponin T C-Reactive Protein Total Protein Albumin Prealbumin Triglycerides Cholesterol LDL Cholesterol Direct HDL Cholesterol Urine pH Urine WBC (Auto) Urine Creatinine Urine Total Protein Fluid Total Protein Vancomycin Trough Rheumatoid Factor Complement C4 Miscellaneous Test Crossmatch 10/21/16 10/21/16 10/22/16 05:54 23:46 05:18 WBC RBC Hgb Hct MCV MCH MCHC RDW Plt Count Lymph % (Auto) [place] % (Auto) Lymph # [place] # Baso # Seg Neutrophils % Seg Neuts % (Manual) Lymphocytes % (Manual) Monocytes % (Manual) Eosinophils % (Manual) Basophils % (Manual) Nucleated RBC % Seg Neutrophils # Seg Neutrophils # Man Lymphocytes # (Manual) Monocytes # (Manual) Eosinophils # (Manual) Basophils # (Manual) PT INR Fibrinogen dRVVT Confirm Interp Factor V Activity POC ABG pH POC ABG pCO2 POC ABG pO2 ABG pO2 ABG HCO3 ABG Base Excess ABG Hemoglobin Oxyhemoglobin Sodium Potassium Chloride Carbon Dioxide BUN Creatinine Glucose POC Glucose 119 H 108 H 109 H Lactic Acid Calcium Phosphorus Magnesium Direct Bilirubin AST ALT Alkaline Phosphatase Lactate Dehydrogenase Troponin T C-Reactive Protein Total Protein Albumin Prealbumin Triglycerides Cholesterol LDL Cholesterol Direct HDL Cholesterol Urine pH Urine WBC (Auto) Urine Creatinine Urine Total Protein Fluid Total Protein Vancomycin Trough Rheumatoid Factor Complement C4 Miscellaneous Test Crossmatch 10/22/16 10/22/16 10/22/16 06:40 06:40 06:40 WBC 14.0 H RBC 2.03 L Hgb 7.0 L Hct 20.5 L MCV 98 H MCH 34 H MCHC 35 H RDW 17.8 H Plt Count Lymph % (Auto) [place] % (Auto) 9.9 H Lymph # [place] # 1.4 H Baso # 0.2 H Seg Neutrophils % 72.0 H Seg Neuts % (Manual) Lymphocytes % (Manual) Monocytes % (Manual) Eosinophils % (Manual) Basophils % (Manual) Nucleated RBC % Seg Neutrophils # 10.0 H Seg Neutrophils # Man Lymphocytes # (Manual) Monocytes # (Manual) Eosinophils # (Manual) Basophils # (Manual) PT INR Fibrinogen dRVVT Confirm Interp Factor V Activity POC ABG pH POC ABG pCO2 POC ABG pO2 ABG pO2 ABG HCO3 ABG Base Excess ABG Hemoglobin Oxyhemoglobin Sodium 130 L D Potassium Chloride 92.4 L Carbon Dioxide 20 L BUN 50 H Creatinine 1.6 H Glucose 589 H* POC Glucose Lactic Acid Calcium 7.8 L D Phosphorus Magnesium 1.60 L Direct Bilirubin AST ALT Alkaline Phosphatase Lactate Dehydrogenase Troponin T C-Reactive Protein Total Protein Albumin Prealbumin Triglycerides Cholesterol LDL Cholesterol Direct HDL Cholesterol Urine pH Urine WBC (Auto) Urine Creatinine Urine Total Protein Fluid Total Protein Vancomycin Trough Rheumatoid Factor Complement C4 Miscellaneous Test Crossmatch 10/22/16 10/22/16 10/22/16 11:39 16:44 23:36 WBC RBC Hgb Hct MCV MCH MCHC RDW Plt Count Lymph % (Auto) [place] % (Auto) Lymph # [place] # Baso # Seg Neutrophils % Seg Neuts % (Manual) Lymphocytes % (Manual) Monocytes % (Manual) Eosinophils % (Manual) Basophils % (Manual) Nucleated RBC % Seg Neutrophils # Seg Neutrophils # Man Lymphocytes # (Manual) Monocytes # (Manual) Eosinophils # (Manual) Basophils # (Manual) PT INR Fibrinogen dRVVT Confirm Interp Factor V Activity POC ABG pH POC ABG pCO2 POC ABG pO2 ABG pO2 ABG HCO3 ABG Base Excess ABG Hemoglobin Oxyhemoglobin Sodium Potassium Chloride Carbon Dioxide BUN Creatinine Glucose POC Glucose 142 H 163 H 123 H Lactic Acid Calcium Phosphorus Magnesium Direct Bilirubin AST ALT Alkaline Phosphatase Lactate Dehydrogenase Troponin T C-Reactive Protein Total Protein Albumin Prealbumin Triglycerides Cholesterol LDL Cholesterol Direct HDL Cholesterol Urine pH Urine WBC (Auto) Urine Creatinine Urine Total Protein Fluid Total Protein Vancomycin Trough Rheumatoid Factor Complement C4 Miscellaneous Test Crossmatch 10/23/16 10/23/16 10/23/16 04:58 06:00 12:12 WBC RBC Hgb Hct MCV MCH MCHC RDW Plt Count Lymph % (Auto) [place] % (Auto) Lymph # [place] # Baso # Seg Neutrophils % Seg Neuts % (Manual) Lymphocytes % (Manual) Monocytes % (Manual) Eosinophils % (Manual) Basophils % (Manual) Nucleated RBC % Seg Neutrophils # Seg Neutrophils # Man Lymphocytes # (Manual) Monocytes # (Manual) Eosinophils # (Manual) Basophils # (Manual) PT INR Fibrinogen dRVVT Confirm Interp Factor V Activity POC ABG pH POC ABG pCO2 POC ABG pO2 ABG pO2 ABG HCO3 ABG Base Excess ABG Hemoglobin Oxyhemoglobin Sodium 133 L Potassium 3.5 L Chloride 96.1 L Carbon Dioxide 18 L BUN 76 H Creatinine 2.1 H Glucose POC Glucose 133 H 138 H Lactic Acid Calcium 8.3 L Phosphorus Magnesium Direct Bilirubin AST ALT Alkaline Phosphatase Lactate Dehydrogenase Troponin T C-Reactive Protein Total Protein Albumin Prealbumin Triglycerides Cholesterol LDL Cholesterol Direct HDL Cholesterol Urine pH Urine WBC (Auto) Urine Creatinine Urine Total Protein Fluid Total Protein Vancomycin Trough Rheumatoid Factor Complement C4 Miscellaneous Test Crossmatch 10/23/16 10/23/16 10/24/16 16:53 23:37 04:00 WBC RBC Hgb Hct MCV MCH MCHC RDW Plt Count Lymph % (Auto) [place] % (Auto) Lymph # [place] # Baso # Seg Neutrophils % Seg Neuts % (Manual) Lymphocytes % (Manual) Monocytes % (Manual) Eosinophils % (Manual) Basophils % (Manual) Nucleated RBC % Seg Neutrophils # Seg Neutrophils # Man Lymphocytes # (Manual) Monocytes # (Manual) Eosinophils # (Manual) Basophils # (Manual) PT INR Fibrinogen dRVVT Confirm Interp Factor V Activity POC ABG pH POC ABG pCO2 POC ABG pO2 ABG pO2 ABG HCO3 ABG Base Excess ABG Hemoglobin Oxyhemoglobin Sodium 131 L Potassium Chloride 94.5 L Carbon Dioxide 19 L BUN 97 H Creatinine 2.6 H Glucose 110 H POC Glucose 125 H 123 H Lactic Acid Calcium 8.3 L Phosphorus Magnesium Direct Bilirubin AST ALT Alkaline Phosphatase Lactate Dehydrogenase Troponin T C-Reactive Protein Total Protein Albumin Prealbumin Triglycerides Cholesterol LDL Cholesterol Direct HDL Cholesterol Urine pH Urine WBC (Auto) Urine Creatinine Urine Total Protein Fluid Total Protein Vancomycin Trough Rheumatoid Factor Complement C4 Miscellaneous Test Crossmatch 10/24/16 10/24/16 10/24/16 07:49 11:39 17:52 WBC RBC Hgb 6.0 L Hct 19.7 L* MCV MCH MCHC RDW Plt Count Lymph % (Auto) [place] % (Auto) Lymph # [place] # Baso # Seg Neutrophils % Seg Neuts % (Manual) Lymphocytes % (Manual) Monocytes % (Manual) Eosinophils % (Manual) Basophils % (Manual) Nucleated RBC % Seg Neutrophils # Seg Neutrophils # Man Lymphocytes # (Manual) Monocytes # (Manual) Eosinophils # (Manual) Basophils # (Manual) PT INR Fibrinogen dRVVT Confirm Interp Factor V Activity POC ABG pH POC ABG pCO2 POC ABG pO2 ABG pO2 ABG HCO3 ABG Base Excess ABG Hemoglobin Oxyhemoglobin Sodium Potassium Chloride Carbon Dioxide BUN Creatinine Glucose POC Glucose 106 H 158 H Lactic Acid Calcium Phosphorus Magnesium Direct Bilirubin AST ALT Alkaline Phosphatase Lactate Dehydrogenase Troponin T C-Reactive Protein Total Protein Albumin Prealbumin Triglycerides Cholesterol LDL Cholesterol Direct HDL Cholesterol Urine pH Urine WBC (Auto) Urine Creatinine Urine Total Protein Fluid Total Protein Vancomycin Trough Rheumatoid Factor Complement C4 Miscellaneous Test Crossmatch 10/24/16 10/24/16 10/24/16 20:00 22:27 Unknown WBC RBC Hgb 9.4 L D Hct 27.5 L D MCV MCH MCHC RDW Plt Count Lymph % (Auto) [place] % (Auto) Lymph # [place] # Baso # Seg Neutrophils % Seg Neuts % (Manual) Lymphocytes % (Manual) Monocytes % (Manual) Eosinophils % (Manual) Basophils % (Manual) Nucleated RBC % Seg Neutrophils # Seg Neutrophils # Man Lymphocytes # (Manual) Monocytes # (Manual) Eosinophils # (Manual) Basophils # (Manual) PT INR Fibrinogen dRVVT Confirm Interp Factor V Activity POC ABG pH POC ABG pCO2 POC ABG pO2 ABG pO2 ABG HCO3 ABG Base Excess ABG Hemoglobin Oxyhemoglobin Sodium Potassium Chloride Carbon Dioxide BUN Creatinine Glucose POC Glucose 125 H Lactic Acid Calcium Phosphorus Magnesium Direct Bilirubin AST ALT Alkaline Phosphatase Lactate Dehydrogenase Troponin T C-Reactive Protein Total Protein Albumin Prealbumin Triglycerides Cholesterol LDL Cholesterol Direct HDL Cholesterol Urine pH Urine WBC (Auto) Urine Creatinine Urine Total Protein Fluid Total Protein Vancomycin Trough Rheumatoid Factor Complement C4 Miscellaneous Test Crossmatch See Detail 10/25/16 10/25/16 10/25/16 04:00 04:00 04:00 WBC 14.2 H RBC 2.98 L Hgb 9.0 L Hct 26.2 L MCV MCH MCHC RDW 16.6 H Plt Count Lymph % (Auto) [place] % (Auto) 10.7 H Lymph # [place] # 1.5 H Baso # Seg Neutrophils % 73.6 H Seg Neuts % (Manual) Lymphocytes % (Manual) Monocytes % (Manual) Eosinophils % (Manual) Basophils % (Manual) Nucleated RBC % Seg Neutrophils # 10.5 H Seg Neutrophils # Man Lymphocytes # (Manual) Monocytes # (Manual) Eosinophils # (Manual) Basophils # (Manual) PT INR Fibrinogen dRVVT Confirm Interp Factor V Activity POC ABG pH POC ABG pCO2 POC ABG pO2 ABG pO2 ABG HCO3 ABG Base Excess ABG Hemoglobin Oxyhemoglobin Sodium 132 L Potassium Chloride 94.7 L Carbon Dioxide BUN 51 H Creatinine 1.6 H Glucose 130 H POC Glucose Lactic Acid Calcium 8.3 L Phosphorus 1.60 L D Magnesium Direct Bilirubin AST ALT Alkaline Phosphatase Lactate Dehydrogenase Troponin T C-Reactive Protein Total Protein Albumin Prealbumin Triglycerides Cholesterol LDL Cholesterol Direct HDL Cholesterol Urine pH Urine WBC (Auto) Urine Creatinine Urine Total Protein Fluid Total Protein Vancomycin Trough Rheumatoid Factor Complement C4 Miscellaneous Test Crossmatch 10/25/16 10/25/16 10/25/16 04:32 11:48 17:22 WBC RBC Hgb Hct MCV MCH MCHC RDW Plt Count Lymph % (Auto) [place] % (Auto) Lymph # [place] # Baso # Seg Neutrophils % Seg Neuts % (Manual) Lymphocytes % (Manual) Monocytes % (Manual) Eosinophils % (Manual) Basophils % (Manual) Nucleated RBC % Seg Neutrophils # Seg Neutrophils # Man Lymphocytes # (Manual) Monocytes # (Manual) Eosinophils # (Manual) Basophils # (Manual) PT INR Fibrinogen dRVVT Confirm Interp Factor V Activity POC ABG pH POC ABG pCO2 POC ABG pO2 ABG pO2 ABG HCO3 ABG Base Excess ABG Hemoglobin Oxyhemoglobin Sodium Potassium Chloride Carbon Dioxide BUN Creatinine Glucose POC Glucose 124 H 171 H 120 H Lactic Acid Calcium Phosphorus Magnesium Direct Bilirubin AST ALT Alkaline Phosphatase Lactate Dehydrogenase Troponin T C-Reactive Protein Total Protein Albumin Prealbumin Triglycerides Cholesterol LDL Cholesterol Direct HDL Cholesterol Urine pH Urine WBC (Auto) Urine Creatinine Urine Total Protein Fluid Total Protein Vancomycin Trough Rheumatoid Factor Complement C4 Miscellaneous Test Crossmatch 10/26/16 10/26/16 10/26/16 04:54 07:06 07:06 WBC 16.9 H RBC 3.06 L Hgb 9.1 L Hct 26.9 L MCV MCH MCHC RDW 16.9 H Plt Count Lymph % (Auto) [place] % (Auto) Lymph # [place] # Baso # Seg Neutrophils % Seg Neuts % (Manual) 71.0 H Lymphocytes % (Manual) 5.0 L Monocytes % (Manual) 12.0 H Eosinophils % (Manual) Basophils % (Manual) Nucleated RBC % Seg Neutrophils # Seg Neutrophils # Man 12.0 H Lymphocytes # (Manual) 0.8 L Monocytes # (Manual) 2.0 H Eosinophils # (Manual) Basophils # (Manual) PT INR Fibrinogen dRVVT Confirm Interp Factor V Activity POC ABG pH POC ABG pCO2 POC ABG pO2 ABG pO2 ABG HCO3 ABG Base Excess ABG Hemoglobin Oxyhemoglobin Sodium 135 L Potassium Chloride 97.1 L Carbon Dioxide BUN 73 H Creatinine 2.2 H Glucose 117 H POC Glucose 123 H Lactic Acid Calcium Phosphorus 1.70 L Magnesium Direct Bilirubin AST ALT Alkaline Phosphatase Lactate Dehydrogenase Troponin T C-Reactive Protein Total Protein Albumin Prealbumin Triglycerides Cholesterol LDL Cholesterol Direct HDL Cholesterol Urine pH Urine WBC (Auto) Urine Creatinine Urine Total Protein Fluid Total Protein Vancomycin Trough Rheumatoid Factor Complement C4 Miscellaneous Test Crossmatch 10/26/16 10/26/16 10/26/16 12:12 17:29 23:42 WBC RBC Hgb Hct MCV MCH MCHC RDW Plt Count Lymph % (Auto) [place] % (Auto) Lymph # [place] # Baso # Seg Neutrophils % Seg Neuts % (Manual) Lymphocytes % (Manual) Monocytes % (Manual) Eosinophils % (Manual) Basophils % (Manual) Nucleated RBC % Seg Neutrophils # Seg Neutrophils # Man Lymphocytes # (Manual) Monocytes # (Manual) Eosinophils # (Manual) Basophils # (Manual) PT INR Fibrinogen dRVVT Confirm Interp Factor V Activity POC ABG pH POC ABG pCO2 POC ABG pO2 ABG pO2 ABG HCO3 ABG Base Excess ABG Hemoglobin Oxyhemoglobin Sodium Potassium Chloride Carbon Dioxide BUN Creatinine Glucose POC Glucose 126 H 161 H 118 H Lactic Acid Calcium Phosphorus Magnesium Direct Bilirubin AST ALT Alkaline Phosphatase Lactate Dehydrogenase Troponin T C-Reactive Protein Total Protein Albumin Prealbumin Triglycerides Cholesterol LDL Cholesterol Direct HDL Cholesterol Urine pH Urine WBC (Auto) Urine Creatinine Urine Total Protein Fluid Total Protein Vancomycin Trough Rheumatoid Factor Complement C4 Miscellaneous Test Crossmatch 10/27/16 10/27/16 10/27/16 05:03 06:30 06:30 WBC 13.9 H RBC 3.09 L Hgb 9.2 L Hct 27.5 L MCV MCH MCHC RDW 17.0 H Plt Count Lymph % (Auto) [place] % (Auto) Lymph # [place] # Baso # Seg Neutrophils % Seg Neuts % (Manual) 78.0 H Lymphocytes % (Manual) Monocytes % (Manual) Eosinophils % (Manual) Basophils % (Manual) Nucleated RBC % 2.0 H Seg Neutrophils # Seg Neutrophils # Man 10.8 H Lymphocytes # (Manual) Monocytes # (Manual) 1.0 H Eosinophils # (Manual) Basophils # (Manual) PT INR Fibrinogen dRVVT Confirm Interp Factor V Activity POC ABG pH POC ABG pCO2 POC ABG pO2 ABG pO2 ABG HCO3 ABG Base Excess ABG Hemoglobin Oxyhemoglobin Sodium Potassium Chloride Carbon Dioxide BUN 40 H Creatinine 1.5 H Glucose 135 H POC Glucose 107 H Lactic Acid Calcium 8.3 L Phosphorus 1.30 L D Magnesium Direct Bilirubin AST ALT Alkaline Phosphatase Lactate Dehydrogenase Troponin T C-Reactive Protein Total Protein Albumin Prealbumin Triglycerides Cholesterol LDL Cholesterol Direct HDL Cholesterol Urine pH Urine WBC (Auto) Urine Creatinine Urine Total Protein Fluid Total Protein Vancomycin Trough Rheumatoid Factor Complement C4 Miscellaneous Test Crossmatch 10/27/16 10/27/16 10/27/16 13:27 18:07 23:40 WBC RBC Hgb Hct MCV MCH MCHC RDW Plt Count Lymph % (Auto) [place] % (Auto) Lymph # [place] # Baso # Seg Neutrophils % Seg Neuts % (Manual) Lymphocytes % (Manual) Monocytes % (Manual) Eosinophils % (Manual) Basophils % (Manual) Nucleated RBC % Seg Neutrophils # Seg Neutrophils # Man Lymphocytes # (Manual) Monocytes # (Manual) Eosinophils # (Manual) Basophils # (Manual) PT INR Fibrinogen dRVVT Confirm Interp Factor V Activity POC ABG pH POC ABG pCO2 POC ABG pO2 ABG pO2 ABG HCO3 ABG Base Excess ABG Hemoglobin Oxyhemoglobin Sodium Potassium Chloride Carbon Dioxide BUN Creatinine Glucose POC Glucose 117 H 121 H 118 H Lactic Acid Calcium Phosphorus Magnesium Direct Bilirubin AST ALT Alkaline Phosphatase Lactate Dehydrogenase Troponin T C-Reactive Protein Total Protein Albumin Prealbumin Triglycerides Cholesterol LDL Cholesterol Direct HDL Cholesterol Urine pH Urine WBC (Auto) Urine Creatinine Urine Total Protein Fluid Total Protein Vancomycin Trough Rheumatoid Factor Complement C4 Miscellaneous Test Crossmatch 10/28/16 10/28/16 10/28/16 05:48 06:45 06:45 WBC 14.7 H RBC 3.05 L Hgb 9.0 L Hct 26.9 L MCV MCH MCHC RDW 16.8 H Plt Count Lymph % (Auto) 8.2 L [place] % (Auto) 8.4 H Lymph # [place] # 1.2 H Baso # Seg Neutrophils % 81.9 H Seg Neuts % (Manual) Lymphocytes % (Manual) Monocytes % (Manual) Eosinophils % (Manual) Basophils % (Manual) Nucleated RBC % Seg Neutrophils # 12.1 H Seg Neutrophils # Man Lymphocytes # (Manual) Monocytes # (Manual) Eosinophils # (Manual) Basophils # (Manual) PT INR Fibrinogen dRVVT Confirm Interp Factor V Activity POC ABG pH POC ABG pCO2 POC ABG pO2 ABG pO2 ABG HCO3 ABG Base Excess ABG Hemoglobin Oxyhemoglobin Sodium Potassium Chloride Carbon Dioxide BUN 60 H Creatinine 1.9 H Glucose 120 H POC Glucose 114 H Lactic Acid Calcium Phosphorus Magnesium Direct Bilirubin AST ALT Alkaline Phosphatase Lactate Dehydrogenase Troponin T C-Reactive Protein Total Protein Albumin Prealbumin Triglycerides Cholesterol LDL Cholesterol Direct HDL Cholesterol Urine pH Urine WBC (Auto) Urine Creatinine Urine Total Protein Fluid Total Protein Vancomycin Trough Rheumatoid Factor Complement C4 Miscellaneous Test Crossmatch 10/28/16 10/28/16 10/29/16 17:08 23:50 05:10 WBC RBC Hgb Hct MCV MCH MCHC RDW Plt Count Lymph % (Auto) [place] % (Auto) Lymph # [place] # Baso # Seg Neutrophils % Seg Neuts % (Manual) Lymphocytes % (Manual) Monocytes % (Manual) Eosinophils % (Manual) Basophils % (Manual) Nucleated RBC % Seg Neutrophils # Seg Neutrophils # Man Lymphocytes # (Manual) Monocytes # (Manual) Eosinophils # (Manual) Basophils # (Manual) PT INR Fibrinogen dRVVT Confirm Interp Factor V Activity POC ABG pH POC ABG pCO2 POC ABG pO2 ABG pO2 ABG HCO3 ABG Base Excess ABG Hemoglobin Oxyhemoglobin Sodium Potassium Chloride Carbon Dioxide BUN Creatinine Glucose POC Glucose 109 H 110 H 124 H Lactic Acid Calcium Phosphorus Magnesium Direct Bilirubin AST ALT Alkaline Phosphatase Lactate Dehydrogenase Troponin T C-Reactive Protein Total Protein Albumin Prealbumin Triglycerides Cholesterol LDL Cholesterol Direct HDL Cholesterol Urine pH Urine WBC (Auto) Urine Creatinine Urine Total Protein Fluid Total Protein Vancomycin Trough Rheumatoid Factor Complement C4 Miscellaneous Test Crossmatch 10/29/16 10/29/16 10/29/16 07:45 07:45 12:19 WBC 14.7 H RBC 3.15 L Hgb 9.3 L Hct 28.9 L MCV MCH MCHC RDW 17.0 H Plt Count Lymph % (Auto) 11.9 L [place] % (Auto) 8.6 H Lymph # [place] # 1.3 H Baso # Seg Neutrophils % 78.1 H Seg Neuts % (Manual) Lymphocytes % (Manual) Monocytes % (Manual) Eosinophils % (Manual) Basophils % (Manual) Nucleated RBC % Seg Neutrophils # 11.4 H Seg Neutrophils # Man Lymphocytes # (Manual) Monocytes # (Manual) Eosinophils # (Manual) Basophils # (Manual) PT INR Fibrinogen dRVVT Confirm Interp Factor V Activity POC ABG pH POC ABG pCO2 POC ABG pO2 ABG pO2 ABG HCO3 ABG Base Excess ABG Hemoglobin Oxyhemoglobin Sodium Potassium 5.1 H Chloride Carbon Dioxide 19 L BUN 78 H Creatinine 2.2 H Glucose 116 H POC Glucose 118 H Lactic Acid Calcium Phosphorus Magnesium Direct Bilirubin AST ALT Alkaline Phosphatase Lactate Dehydrogenase Troponin T C-Reactive Protein Total Protein Albumin Prealbumin Triglycerides Cholesterol LDL Cholesterol Direct HDL Cholesterol Urine pH Urine WBC (Auto) Urine Creatinine Urine Total Protein Fluid Total Protein Vancomycin Trough Rheumatoid Factor Complement C4 Miscellaneous Test Crossmatch 10/29/16 10/30/16 10/30/16 17:49 01:52 03:28 WBC RBC Hgb Hct MCV MCH MCHC RDW Plt Count Lymph % (Auto) [place] % (Auto) Lymph # [place] # Baso # Seg Neutrophils % Seg Neuts % (Manual) Lymphocytes % (Manual) Monocytes % (Manual) Eosinophils % (Manual) Basophils % (Manual) Nucleated RBC % Seg Neutrophils # Seg Neutrophils # Man Lymphocytes # (Manual) Monocytes # (Manual) Eosinophils # (Manual) Basophils # (Manual) PT INR Fibrinogen dRVVT Confirm Interp Factor V Activity POC ABG pH POC ABG pCO2 POC ABG pO2 ABG pO2 ABG HCO3 ABG Base Excess ABG Hemoglobin Oxyhemoglobin Sodium Potassium 5.4 H Chloride 97.5 L Carbon Dioxide 19 L BUN 90 H Creatinine 2.5 H Glucose POC Glucose 120 H 129 H Lactic Acid Calcium Phosphorus 5.20 H Magnesium Direct Bilirubin AST ALT Alkaline Phosphatase Lactate Dehydrogenase Troponin T C-Reactive Protein Total Protein Albumin Prealbumin Triglycerides Cholesterol LDL Cholesterol Direct HDL Cholesterol Urine pH Urine WBC (Auto) Urine Creatinine Urine Total Protein Fluid Total Protein Vancomycin Trough Rheumatoid Factor Complement C4 Miscellaneous Test Crossmatch 10/30/16 10/30/16 10/30/16 03:28 08:19 08:19 WBC 11.6 H 15.9 H RBC 2.75 L 2.82 L Hgb 7.9 L 8.3 L Hct 24.2 L 25.2 L MCV MCH MCHC RDW 16.7 H 17.2 H Plt Count Lymph % (Auto) [place] % (Auto) 9.8 H Lymph # [place] # 1.1 H Baso # Seg Neutrophils % 74.2 H Seg Neuts % (Manual) Lymphocytes % (Manual) Monocytes % (Manual) Eosinophils % (Manual) Basophils % (Manual) Nucleated RBC % Seg Neutrophils # 8.6 H Seg Neutrophils # Man Lymphocytes # (Manual) Monocytes # (Manual) Eosinophils # (Manual) Basophils # (Manual) PT INR Fibrinogen dRVVT Confirm Interp Factor V Activity POC ABG pH POC ABG pCO2 POC ABG pO2 ABG pO2 ABG HCO3 ABG Base Excess ABG Hemoglobin Oxyhemoglobin Sodium Potassium 5.3 H Chloride 97.4 L Carbon Dioxide 19 L BUN 93 H Creatinine 2.6 H Glucose POC Glucose Lactic Acid Calcium Phosphorus Magnesium Direct Bilirubin AST ALT Alkaline Phosphatase Lactate Dehydrogenase Troponin T C-Reactive Protein Total Protein Albumin Prealbumin Triglycerides Cholesterol LDL Cholesterol Direct HDL Cholesterol Urine pH Urine WBC (Auto) Urine Creatinine Urine Total Protein Fluid Total Protein Vancomycin Trough Rheumatoid Factor Complement C4 Miscellaneous Test Crossmatch 10/30/16 10/30/16 10/31/16 17:11 23:56 00:40 WBC RBC Hgb Hct MCV MCH MCHC RDW Plt Count Lymph % (Auto) [place] % (Auto) Lymph # [place] # Baso # Seg Neutrophils % Seg Neuts % (Manual) Lymphocytes % (Manual) Monocytes % (Manual) Eosinophils % (Manual) Basophils % (Manual) Nucleated RBC % Seg Neutrophils # Seg Neutrophils # Man Lymphocytes # (Manual) Monocytes # (Manual) Eosinophils # (Manual) Basophils # (Manual) PT INR Fibrinogen dRVVT Confirm Interp Factor V Activity POC ABG pH POC ABG pCO2 POC ABG pO2 ABG pO2 ABG HCO3 ABG Base Excess ABG Hemoglobin Oxyhemoglobin Sodium Potassium Chloride Carbon Dioxide BUN Creatinine Glucose POC Glucose 106 H 117 H 120 H Lactic Acid Calcium Phosphorus Magnesium Direct Bilirubin AST ALT Alkaline Phosphatase Lactate Dehydrogenase Troponin T C-Reactive Protein Total Protein Albumin Prealbumin Triglycerides Cholesterol LDL Cholesterol Direct HDL Cholesterol Urine pH Urine WBC (Auto) Urine Creatinine Urine Total Protein Fluid Total Protein Vancomycin Trough Rheumatoid Factor Complement C4 Miscellaneous Test Crossmatch 10/31/16 10/31/16 10/31/16 05:43 07:15 07:15 WBC 12.1 H RBC 2.63 L Hgb 7.7 L Hct 23.3 L MCV MCH MCHC RDW 16.7 H Plt Count Lymph % (Auto) 11.7 L [place] % (Auto) 7.7 H Lymph # [place] # 0.9 H Baso # Seg Neutrophils % 78.0 H Seg Neuts % (Manual) Lymphocytes % (Manual) Monocytes % (Manual) Eosinophils % (Manual) Basophils % (Manual) Nucleated RBC % Seg Neutrophils # 9.4 H Seg Neutrophils # Man Lymphocytes # (Manual) Monocytes # (Manual) Eosinophils # (Manual) Basophils # (Manual) PT INR Fibrinogen dRVVT Confirm Interp Factor V Activity POC ABG pH POC ABG pCO2 POC ABG pO2 ABG pO2 ABG HCO3 ABG Base Excess ABG Hemoglobin Oxyhemoglobin Sodium Potassium Chloride 96.4 L Carbon Dioxide 21 L BUN 99 H Creatinine 2.6 H Glucose 144 H POC Glucose 125 H Lactic Acid Calcium Phosphorus 4.80 H Magnesium Direct Bilirubin AST ALT Alkaline Phosphatase Lactate Dehydrogenase Troponin T C-Reactive Protein Total Protein Albumin Prealbumin Triglycerides Cholesterol LDL Cholesterol Direct HDL Cholesterol Urine pH Urine WBC (Auto) Urine Creatinine Urine Total Protein Fluid Total Protein Vancomycin Trough Rheumatoid Factor Complement C4 Miscellaneous Test Crossmatch 10/31/16 10/31/16 11/01/16 11:46 18:34 00:20 WBC RBC Hgb Hct MCV MCH MCHC RDW Plt Count Lymph % (Auto) [place] % (Auto) Lymph # [place] # Baso # Seg Neutrophils % Seg Neuts % (Manual) Lymphocytes % (Manual) Monocytes % (Manual) Eosinophils % (Manual) Basophils % (Manual) Nucleated RBC % Seg Neutrophils # Seg Neutrophils # Man Lymphocytes # (Manual) Monocytes # (Manual) Eosinophils # (Manual) Basophils # (Manual) PT INR Fibrinogen dRVVT Confirm Interp Factor V Activity POC ABG pH POC ABG pCO2 POC ABG pO2 ABG pO2 ABG HCO3 ABG Base Excess ABG Hemoglobin Oxyhemoglobin Sodium Potassium Chloride Carbon Dioxide BUN Creatinine Glucose POC Glucose 159 H 140 H 132 H Lactic Acid Calcium Phosphorus Magnesium Direct Bilirubin AST ALT Alkaline Phosphatase Lactate Dehydrogenase Troponin T C-Reactive Protein Total Protein Albumin Prealbumin Triglycerides Cholesterol LDL Cholesterol Direct HDL Cholesterol Urine pH Urine WBC (Auto) Urine Creatinine Urine Total Protein Fluid Total Protein Vancomycin Trough Rheumatoid Factor Complement C4 Miscellaneous Test Crossmatch 11/01/16 11/01/16 11/01/16 04:55 04:55 06:11 WBC 11.2 H RBC 2.68 L Hgb 7.5 L Hct 23.7 L MCV MCH MCHC RDW 16.1 H Plt Count Lymph % (Auto) [place] % (Auto) 9.8 H Lymph # [place] # 1.1 H Baso # Seg Neutrophils % 70.8 H Seg Neuts % (Manual) Lymphocytes % (Manual) Monocytes % (Manual) Eosinophils % (Manual) Basophils % (Manual) Nucleated RBC % Seg Neutrophils # 7.9 H Seg Neutrophils # Man Lymphocytes # (Manual) Monocytes # (Manual) Eosinophils # (Manual) Basophils # (Manual) PT INR Fibrinogen dRVVT Confirm Interp Factor V Activity POC ABG pH POC ABG pCO2 POC ABG pO2 ABG pO2 ABG HCO3 ABG Base Excess ABG Hemoglobin Oxyhemoglobin Sodium Potassium 3.3 L D Chloride Carbon Dioxide BUN 61 H Creatinine 1.9 H Glucose 114 H POC Glucose 115 H Lactic Acid Calcium Phosphorus 1.80 L D Magnesium Direct Bilirubin AST ALT Alkaline Phosphatase Lactate Dehydrogenase Troponin T C-Reactive Protein Total Protein Albumin Prealbumin Triglycerides Cholesterol LDL Cholesterol Direct HDL Cholesterol Urine pH Urine WBC (Auto) Urine Creatinine Urine Total Protein Fluid Total Protein Vancomycin Trough Rheumatoid Factor Complement C4 Miscellaneous Test Crossmatch 11/01/16 11/01/16 11/01/16 12:29 18:23 23:58 WBC RBC Hgb Hct MCV MCH MCHC RDW Plt Count Lymph % (Auto) [place] % (Auto) Lymph # [place] # Baso # Seg Neutrophils % Seg Neuts % (Manual) Lymphocytes % (Manual) Monocytes % (Manual) Eosinophils % (Manual) Basophils % (Manual) Nucleated RBC % Seg Neutrophils # Seg Neutrophils # Man Lymphocytes # (Manual) Monocytes # (Manual) Eosinophils # (Manual) Basophils # (Manual) PT INR Fibrinogen dRVVT Confirm Interp Factor V Activity POC ABG pH POC ABG pCO2 POC ABG pO2 ABG pO2 ABG HCO3 ABG Base Excess ABG Hemoglobin Oxyhemoglobin Sodium Potassium Chloride Carbon Dioxide BUN Creatinine Glucose POC Glucose 142 H 143 H 128 H Lactic Acid Calcium Phosphorus Magnesium Direct Bilirubin AST ALT Alkaline Phosphatase Lactate Dehydrogenase Troponin T C-Reactive Protein Total Protein Albumin Prealbumin Triglycerides Cholesterol LDL Cholesterol Direct HDL Cholesterol Urine pH Urine WBC (Auto) Urine Creatinine Urine Total Protein Fluid Total Protein Vancomycin Trough Rheumatoid Factor Complement C4 Miscellaneous Test Crossmatch 11/02/16 11/02/16 11/02/16 04:16 05:29 11:58 WBC RBC Hgb Hct MCV MCH MCHC RDW Plt Count Lymph % (Auto) [place] % (Auto) Lymph # [place] # Baso # Seg Neutrophils % Seg Neuts % (Manual) Lymphocytes % (Manual) Monocytes % (Manual) Eosinophils % (Manual) Basophils % (Manual) Nucleated RBC % Seg Neutrophils # Seg Neutrophils # Man Lymphocytes # (Manual) Monocytes # (Manual) Eosinophils # (Manual) Basophils # (Manual) PT INR Fibrinogen dRVVT Confirm Interp Factor V Activity POC ABG pH POC ABG pCO2 POC ABG pO2 ABG pO2 ABG HCO3 ABG Base Excess ABG Hemoglobin Oxyhemoglobin Sodium Potassium 3.1 L Chloride Carbon Dioxide BUN 73 H Creatinine 2.3 H Glucose 112 H POC Glucose 135 H 149 H Lactic Acid Calcium Phosphorus Magnesium Direct Bilirubin AST ALT Alkaline Phosphatase Lactate Dehydrogenase Troponin T C-Reactive Protein Total Protein Albumin Prealbumin Triglycerides Cholesterol LDL Cholesterol Direct HDL Cholesterol Urine pH Urine WBC (Auto) Urine Creatinine Urine Total Protein Fluid Total Protein Vancomycin Trough Rheumatoid Factor Complement C4 Miscellaneous Test Crossmatch 11/02/16 11/02/16 11/03/16 17:42 22:54 06:00 WBC RBC Hgb Hct MCV MCH MCHC RDW Plt Count Lymph % (Auto) [place] % (Auto) Lymph # [place] # Baso # Seg Neutrophils % Seg Neuts % (Manual) Lymphocytes % (Manual) Monocytes % (Manual) Eosinophils % (Manual) Basophils % (Manual) Nucleated RBC % Seg Neutrophils # Seg Neutrophils # Man Lymphocytes # (Manual) Monocytes # (Manual) Eosinophils # (Manual) Basophils # (Manual) PT INR Fibrinogen dRVVT Confirm Interp Factor V Activity POC ABG pH POC ABG pCO2 POC ABG pO2 ABG pO2 ABG HCO3 ABG Base Excess ABG Hemoglobin Oxyhemoglobin Sodium Potassium Chloride 96.7 L Carbon Dioxide BUN 41 H Creatinine 1.5 H Glucose 145 H POC Glucose 182 H 115 H Lactic Acid Calcium Phosphorus 1.60 L D Magnesium 1.50 L Direct Bilirubin AST ALT Alkaline Phosphatase Lactate Dehydrogenase Troponin T C-Reactive Protein Total Protein Albumin Prealbumin Triglycerides Cholesterol LDL Cholesterol Direct HDL Cholesterol Urine pH Urine WBC (Auto) Urine Creatinine Urine Total Protein Fluid Total Protein Vancomycin Trough Rheumatoid Factor Complement C4 Miscellaneous Test Crossmatch 11/03/16 11/03/16 11/03/16 11:53 17:45 23:37 WBC RBC Hgb Hct MCV MCH MCHC RDW Plt Count Lymph % (Auto) [place] % (Auto) Lymph # [place] # Baso # Seg Neutrophils % Seg Neuts % (Manual) Lymphocytes % (Manual) Monocytes % (Manual) Eosinophils % (Manual) Basophils % (Manual) Nucleated RBC % Seg Neutrophils # Seg Neutrophils # Man Lymphocytes # (Manual) Monocytes # (Manual) Eosinophils # (Manual) Basophils # (Manual) PT INR Fibrinogen dRVVT Confirm Interp Factor V Activity POC ABG pH POC ABG pCO2 POC ABG pO2 ABG pO2 ABG HCO3 ABG Base Excess ABG Hemoglobin Oxyhemoglobin Sodium Potassium Chloride Carbon Dioxide BUN Creatinine Glucose POC Glucose 131 H 134 H 113 H Lactic Acid Calcium Phosphorus Magnesium Direct Bilirubin AST ALT Alkaline Phosphatase Lactate Dehydrogenase Troponin T C-Reactive Protein Total Protein Albumin Prealbumin Triglycerides Cholesterol LDL Cholesterol Direct HDL Cholesterol Urine pH Urine WBC (Auto) Urine Creatinine Urine Total Protein Fluid Total Protein Vancomycin Trough Rheumatoid Factor Complement C4 Miscellaneous Test Crossmatch 11/04/16 11/04/16 11/04/16 05:41 06:00 12:10 WBC RBC Hgb Hct MCV MCH MCHC RDW Plt Count Lymph % (Auto) [place] % (Auto) Lymph # [place] # Baso # Seg Neutrophils % Seg Neuts % (Manual) Lymphocytes % (Manual) Monocytes % (Manual) Eosinophils % (Manual) Basophils % (Manual) Nucleated RBC % Seg Neutrophils # Seg Neutrophils # Man Lymphocytes # (Manual) Monocytes # (Manual) Eosinophils # (Manual) Basophils # (Manual) PT INR Fibrinogen dRVVT Confirm Interp Factor V Activity POC ABG pH POC ABG pCO2 POC ABG pO2 ABG pO2 ABG HCO3 ABG Base Excess ABG Hemoglobin Oxyhemoglobin Sodium Potassium Chloride 96.7 L Carbon Dioxide BUN 52 H Creatinine 1.9 H Glucose 126 H POC Glucose 137 H 191 H Lactic Acid Calcium Phosphorus Magnesium Direct Bilirubin AST ALT Alkaline Phosphatase Lactate Dehydrogenase Troponin T C-Reactive Protein Total Protein Albumin Prealbumin Triglycerides Cholesterol LDL Cholesterol Direct HDL Cholesterol Urine pH Urine WBC (Auto) Urine Creatinine Urine Total Protein Fluid Total Protein Vancomycin Trough Rheumatoid Factor Complement C4 Miscellaneous Test Crossmatch 0911/05/16 11/05/16 22:57 03:10 05:10 WBC RBC Hgb Hct MCV MCH MCHC RDW Plt Count Lymph % (Auto) [place] % (Auto) Lymph # [place] # Baso # Seg Neutrophils % Seg Neuts % (Manual) Lymphocytes % (Manual) Monocytes % (Manual) Eosinophils % (Manual) Basophils % (Manual) Nucleated RBC % Seg Neutrophils # Seg Neutrophils # Man Lymphocytes # (Manual) Monocytes # (Manual) Eosinophils # (Manual) Basophils # (Manual) PT INR Fibrinogen dRVVT Confirm Interp Factor V Activity POC ABG pH POC ABG pCO2 POC ABG pO2 ABG pO2 ABG HCO3 ABG Base Excess ABG Hemoglobin Oxyhemoglobin Sodium 136 L Potassium Chloride 97.2 L Carbon Dioxide BUN 32 H Creatinine 1.3 H Glucose 123 H POC Glucose 125 H 108 H Lactic Acid Calcium 7.8 L Phosphorus Magnesium Direct Bilirubin AST ALT Alkaline Phosphatase Lactate Dehydrogenase Troponin T C-Reactive Protein Total Protein Albumin Prealbumin Triglycerides Cholesterol LDL Cholesterol Direct HDL Cholesterol Urine pH Urine WBC (Auto) Urine Creatinine Urine Total Protein Fluid Total Protein Vancomycin Trough Rheumatoid Factor Complement C4 Miscellaneous Test Crossmatch 11/05/16 11/05/16 11/05/16 12:23 13:09 13:25 WBC RBC Hgb Hct MCV MCH MCHC RDW Plt Count Lymph % (Auto) [place] % (Auto) Lymph # [place] # Baso # Seg Neutrophils % Seg Neuts % (Manual) Lymphocytes % (Manual) Monocytes % (Manual) Eosinophils % (Manual) Basophils % (Manual) Nucleated RBC % Seg Neutrophils # Seg Neutrophils # Man Lymphocytes # (Manual) Monocytes # (Manual) Eosinophils # (Manual) Basophils # (Manual) PT INR Fibrinogen dRVVT Confirm Interp Factor V Activity POC ABG pH POC ABG pCO2 POC ABG pO2 ABG pO2 ABG HCO3 ABG Base Excess ABG Hemoglobin Oxyhemoglobin Sodium Potassium Chloride Carbon Dioxide BUN Creatinine Glucose POC Glucose 124 H Lactic Acid Calcium Phosphorus Magnesium Direct Bilirubin AST ALT Alkaline Phosphatase Lactate Dehydrogenase Troponin T C-Reactive Protein 11.40 H Total Protein Albumin Prealbumin Triglycerides Cholesterol LDL Cholesterol Direct HDL Cholesterol Urine pH 9.0 H Urine WBC (Auto) Urine Creatinine Urine Total Protein Fluid Total Protein Vancomycin Trough Rheumatoid Factor Complement C4 Miscellaneous Test Crossmatch 11/05/16 11/05/16 11/05/16 13:25 17:54 23:42 WBC RBC Hgb Hct MCV MCH MCHC RDW Plt Count Lymph % (Auto) [place] % (Auto) Lymph # [place] # Baso # Seg Neutrophils % Seg Neuts % (Manual) Lymphocytes % (Manual) Monocytes % (Manual) Eosinophils % (Manual) Basophils % (Manual) Nucleated RBC % Seg Neutrophils # Seg Neutrophils # Man Lymphocytes # (Manual) Monocytes # (Manual) Eosinophils # (Manual) Basophils # (Manual) PT INR Fibrinogen dRVVT Confirm Interp Factor V Activity POC ABG pH POC ABG pCO2 POC ABG pO2 ABG pO2 ABG HCO3 ABG Base Excess ABG Hemoglobin Oxyhemoglobin Sodium Potassium Chloride Carbon Dioxide BUN Creatinine Glucose POC Glucose 114 H 134 H Lactic Acid Calcium Phosphorus Magnesium Direct Bilirubin AST ALT Alkaline Phosphatase Lactate Dehydrogenase Troponin T C-Reactive Protein Total Protein Albumin Prealbumin Triglycerides Cholesterol LDL Cholesterol Direct HDL Cholesterol Urine pH Urine WBC (Auto) Urine Creatinine Urine Total Protein Fluid Total Protein Vancomycin Trough Rheumatoid Factor Complement C4 Miscellaneous Test Flexitest 1 H Crossmatch 11/06/16 11/06/16 11/06/16 04:56 06:25 06:25 WBC RBC 2.50 L Hgb 7.3 L Hct 22.5 L MCV MCH MCHC RDW 16.9 H Plt Count Lymph % (Auto) [place] % (Auto) 10.5 H Lymph # [place] # 1.1 H Baso # Seg Neutrophils % Seg Neuts % (Manual) Lymphocytes % (Manual) Monocytes % (Manual) Eosinophils % (Manual) Basophils % (Manual) Nucleated RBC % Seg Neutrophils # Seg Neutrophils # Man Lymphocytes # (Manual) Monocytes # (Manual) Eosinophils # (Manual) Basophils # (Manual) PT INR Fibrinogen dRVVT Confirm Interp Factor V Activity POC ABG pH POC ABG pCO2 POC ABG pO2 ABG pO2 ABG HCO3 ABG Base Excess ABG Hemoglobin Oxyhemoglobin Sodium Potassium 5.1 H Chloride 95.9 L Carbon Dioxide BUN 52 H Creatinine 1.8 H Glucose 117 H POC Glucose 120 H Lactic Acid Calcium Phosphorus Magnesium Direct Bilirubin AST 103 H ALT 77 H Alkaline Phosphatase 285 H Lactate Dehydrogenase Troponin T C-Reactive Protein Total Protein 6.2 L Albumin 1.8 L Prealbumin 0.180 L Triglycerides Cholesterol LDL Cholesterol Direct HDL Cholesterol Urine pH Urine WBC (Auto) Urine Creatinine Urine Total Protein Fluid Total Protein Vancomycin Trough Rheumatoid Factor Complement C4 Miscellaneous Test Crossmatch 11/06/16 11/06/16 11/06/16 11:56 17:14 23:52 WBC RBC Hgb Hct MCV MCH MCHC RDW Plt Count Lymph % (Auto) [place] % (Auto) Lymph # [place] # Baso # Seg Neutrophils % Seg Neuts % (Manual) Lymphocytes % (Manual) Monocytes % (Manual) Eosinophils % (Manual) Basophils % (Manual) Nucleated RBC % Seg Neutrophils # Seg Neutrophils # Man Lymphocytes # (Manual) Monocytes # (Manual) Eosinophils # (Manual) Basophils # (Manual) PT INR Fibrinogen dRVVT Confirm Interp Factor V Activity POC ABG pH POC ABG pCO2 POC ABG pO2 ABG pO2 ABG HCO3 ABG Base Excess ABG Hemoglobin Oxyhemoglobin Sodium Potassium Chloride Carbon Dioxide BUN Creatinine Glucose POC Glucose 141 H 125 H 130 H Lactic Acid Calcium Phosphorus Magnesium Direct Bilirubin AST ALT Alkaline Phosphatase Lactate Dehydrogenase Troponin T C-Reactive Protein Total Protein Albumin Prealbumin Triglycerides Cholesterol LDL Cholesterol Direct HDL Cholesterol Urine pH Urine WBC (Auto) Urine Creatinine Urine Total Protein Fluid Total Protein Vancomycin Trough Rheumatoid Factor Complement C4 Miscellaneous Test Crossmatch 11/07/16 11/07/16 11/07/16 06:30 06:30 09:37 WBC RBC 2.18 L Hgb 6.3 L Hct 19.7 L* MCV MCH MCHC RDW 16.8 H Plt Count Lymph % (Auto) [place] % (Auto) 10.0 H Lymph # [place] # 1.0 H Baso # Seg Neutrophils % Seg Neuts % (Manual) Lymphocytes % (Manual) Monocytes % (Manual) Eosinophils % (Manual) Basophils % (Manual) Nucleated RBC % Seg Neutrophils # Seg Neutrophils # Man Lymphocytes # (Manual) Monocytes # (Manual) Eosinophils # (Manual) Basophils # (Manual) PT INR Fibrinogen dRVVT Confirm Interp Factor V Activity POC ABG pH POC ABG pCO2 POC ABG pO2 ABG pO2 ABG HCO3 ABG Base Excess ABG Hemoglobin Oxyhemoglobin Sodium 135 L Potassium Chloride 95.6 L Carbon Dioxide BUN 70 H Creatinine 2.0 H Glucose 126 H POC Glucose Lactic Acid Calcium Phosphorus Magnesium Direct Bilirubin AST ALT Alkaline Phosphatase Lactate Dehydrogenase Troponin T C-Reactive Protein Total Protein Albumin Prealbumin Triglycerides Cholesterol LDL Cholesterol Direct HDL Cholesterol Urine pH Urine WBC (Auto) Urine Creatinine Urine Total Protein Fluid Total Protein Vancomycin Trough Rheumatoid Factor Complement C4 Miscellaneous Test Crossmatch See Detail 11/07/16 11/07/16 11/07/16 12:52 18:51 21:26 WBC RBC Hgb Hct MCV MCH MCHC RDW Plt Count Lymph % (Auto) [place] % (Auto) Lymph # [place] # Baso # Seg Neutrophils % Seg Neuts % (Manual) Lymphocytes % (Manual) Monocytes % (Manual) Eosinophils % (Manual) Basophils % (Manual) Nucleated RBC % Seg Neutrophils # Seg Neutrophils # Man Lymphocytes # (Manual) Monocytes # (Manual) Eosinophils # (Manual) Basophils # (Manual) PT INR Fibrinogen dRVVT Confirm Interp Factor V Activity POC ABG pH 7.523 H POC ABG pCO2 34.6 L POC ABG pO2 53 L ABG pO2 ABG HCO3 ABG Base Excess ABG Hemoglobin Oxyhemoglobin Sodium Potassium Chloride Carbon Dioxide BUN Creatinine Glucose POC Glucose 142 H 155 H Lactic Acid Calcium Phosphorus Magnesium Direct Bilirubin AST ALT Alkaline Phosphatase Lactate Dehydrogenase Troponin T C-Reactive Protein Total Protein Albumin Prealbumin Triglycerides Cholesterol LDL Cholesterol Direct HDL Cholesterol Urine pH Urine WBC (Auto) Urine Creatinine Urine Total Protein Fluid Total Protein Vancomycin Trough Rheumatoid Factor Complement C4 Miscellaneous Test Crossmatch 11/07/16 11/08/16 11/08/16 21:34 13:03 23:37 WBC RBC 2.63 L Hgb 7.7 L Hct 22.7 L MCV MCH MCHC RDW 17.0 H Plt Count Lymph % (Auto) [place] % (Auto) Lymph # [place] # Baso # Seg Neutrophils % Seg Neuts % (Manual) Lymphocytes % (Manual) Monocytes % (Manual) Eosinophils % (Manual) Basophils % (Manual) Nucleated RBC % Seg Neutrophils # Seg Neutrophils # Man Lymphocytes # (Manual) Monocytes # (Manual) Eosinophils # (Manual) Basophils # (Manual) PT INR Fibrinogen dRVVT Confirm Interp Factor V Activity POC ABG pH 7.478 H POC ABG pCO2 34.0 L POC ABG pO2 50 L ABG pO2 ABG HCO3 ABG Base Excess ABG Hemoglobin Oxyhemoglobin Sodium Potassium Chloride Carbon Dioxide BUN Creatinine Glucose POC Glucose 113 H Lactic Acid Calcium Phosphorus Magnesium Direct Bilirubin AST ALT Alkaline Phosphatase Lactate Dehydrogenase Troponin T C-Reactive Protein Total Protein Albumin Prealbumin Triglycerides Cholesterol LDL Cholesterol Direct HDL Cholesterol Urine pH Urine WBC (Auto) Urine Creatinine Urine Total Protein Fluid Total Protein Vancomycin Trough Rheumatoid Factor Complement C4 Miscellaneous Test Crossmatch 11/09/16 11/09/16 11/09/16 04:35 10:15 18:21 WBC RBC 2.68 L Hgb 7.8 L Hct 23.3 L MCV MCH MCHC RDW 17.0 H Plt Count Lymph % (Auto) [place] % (Auto) 12.1 H Lymph # [place] # 1.1 H Baso # Seg Neutrophils % Seg Neuts % (Manual) Lymphocytes % (Manual) Monocytes % (Manual) Eosinophils % (Manual) Basophils % (Manual) Nucleated RBC % Seg Neutrophils # Seg Neutrophils # Man Lymphocytes # (Manual) Monocytes # (Manual) Eosinophils # (Manual) Basophils # (Manual) PT INR Fibrinogen dRVVT Confirm Interp Factor V Activity POC ABG pH POC ABG pCO2 POC ABG pO2 ABG pO2 ABG HCO3 ABG Base Excess ABG Hemoglobin Oxyhemoglobin Sodium Potassium Chloride Carbon Dioxide BUN 51 H Creatinine 1.8 H Glucose POC Glucose 60 L Lactic Acid Calcium 8.3 L Phosphorus Magnesium Direct Bilirubin AST ALT Alkaline Phosphatase Lactate Dehydrogenase Troponin T C-Reactive Protein Total Protein Albumin Prealbumin Triglycerides Cholesterol LDL Cholesterol Direct HDL Cholesterol Urine pH Urine WBC (Auto) Urine Creatinine Urine Total Protein Fluid Total Protein Vancomycin Trough Rheumatoid Factor Complement C4 Miscellaneous Test Crossmatch 11/09/16 11/10/16 11/10/16 18:55 07:00 11:51 WBC RBC Hgb Hct MCV MCH MCHC RDW Plt Count Lymph % (Auto) [place] % (Auto) Lymph # [place] # Baso # Seg Neutrophils % Seg Neuts % (Manual) Lymphocytes % (Manual) Monocytes % (Manual) Eosinophils % (Manual) Basophils % (Manual) Nucleated RBC % Seg Neutrophils # Seg Neutrophils # Man Lymphocytes # (Manual) Monocytes # (Manual) Eosinophils # (Manual) Basophils # (Manual) PT INR Fibrinogen dRVVT Confirm Interp Factor V Activity POC ABG pH POC ABG pCO2 POC ABG pO2 ABG pO2 ABG HCO3 ABG Base Excess ABG Hemoglobin Oxyhemoglobin Sodium Potassium 3.0 L D Chloride 97.4 L Carbon Dioxide BUN 28 H Creatinine 1.3 H Glucose POC Glucose 68 L 120 H Lactic Acid Calcium 7.8 L Phosphorus Magnesium Direct Bilirubin AST ALT Alkaline Phosphatase Lactate Dehydrogenase Troponin T C-Reactive Protein Total Protein Albumin Prealbumin Triglycerides Cholesterol LDL Cholesterol Direct HDL Cholesterol Urine pH Urine WBC (Auto) Urine Creatinine Urine Total Protein Fluid Total Protein Vancomycin Trough Rheumatoid Factor Complement C4 Miscellaneous Test Crossmatch 11/10/16 11/11/16 11/11/16 14:20 06:59 06:59 WBC RBC 2.81 L Hgb 8.1 L Hct 24.4 L MCV MCH MCHC RDW 16.4 H Plt Count Lymph % (Auto) [place] % (Auto) 10.8 H Lymph # [place] # 1.0 H Baso # Seg Neutrophils % Seg Neuts % (Manual) Lymphocytes % (Manual) Monocytes % (Manual) Eosinophils % (Manual) Basophils % (Manual) Nucleated RBC % Seg Neutrophils # Seg Neutrophils # Man Lymphocytes # (Manual) Monocytes # (Manual) Eosinophils # (Manual) Basophils # (Manual) PT INR Fibrinogen dRVVT Confirm Interp Factor V Activity POC ABG pH POC ABG pCO2 POC ABG pO2 ABG pO2 ABG HCO3 ABG Base Excess ABG Hemoglobin Oxyhemoglobin Sodium Potassium Chloride Carbon Dioxide BUN Creatinine Glucose POC Glucose Lactic Acid Calcium Phosphorus Magnesium Direct Bilirubin AST ALT Alkaline Phosphatase Lactate Dehydrogenase 196 H Troponin T C-Reactive Protein Total Protein 6.1 L Albumin Prealbumin Triglycerides Cholesterol LDL Cholesterol Direct HDL Cholesterol Urine pH Urine WBC (Auto) Urine Creatinine Urine Total Protein Fluid Total Protein < 3.0 L Vancomycin Trough Rheumatoid Factor Complement C4 Miscellaneous Test Crossmatch 11/11/16 11/11/16 11/12/16 06:59 09:50 04:00 WBC RBC Hgb Hct MCV MCH MCHC RDW Plt Count Lymph % (Auto) [place] % (Auto) Lymph # [place] # Baso # Seg Neutrophils % Seg Neuts % (Manual) Lymphocytes % (Manual) Monocytes % (Manual) Eosinophils % (Manual) Basophils % (Manual) Nucleated RBC % Seg Neutrophils # Seg Neutrophils # Man Lymphocytes # (Manual) Monocytes # (Manual) Eosinophils # (Manual) Basophils # (Manual) PT INR 1.18 H Fibrinogen dRVVT Confirm Interp Factor V Activity POC ABG pH POC ABG pCO2 POC ABG pO2 ABG pO2 ABG HCO3 ABG Base Excess ABG Hemoglobin Oxyhemoglobin Sodium 136 L 133 L Potassium Chloride 96.1 L 94.8 L Carbon Dioxide 21 L BUN 37 H 42 H Creatinine 1.8 H 2.0 H Glucose POC Glucose Lactic Acid Calcium Phosphorus Magnesium Direct Bilirubin AST ALT Alkaline Phosphatase Lactate Dehydrogenase Troponin T C-Reactive Protein Total Protein Albumin Prealbumin Triglycerides Cholesterol LDL Cholesterol Direct HDL Cholesterol Urine pH Urine WBC (Auto) Urine Creatinine Urine Total Protein Fluid Total Protein Vancomycin Trough Rheumatoid Factor Complement C4 Miscellaneous Test Crossmatch 11/12/16 11/12/16 11/13/16 04:00 23:55 05:53 WBC RBC Hgb 8.9 L Hct 27.2 L MCV MCH MCHC RDW Plt Count Lymph % (Auto) [place] % (Auto) Lymph # [place] # Baso # Seg Neutrophils % Seg Neuts % (Manual) Lymphocytes % (Manual) Monocytes % (Manual) Eosinophils % (Manual) Basophils % (Manual) Nucleated RBC % Seg Neutrophils # Seg Neutrophils # Man Lymphocytes # (Manual) Monocytes # (Manual) Eosinophils # (Manual) Basophils # (Manual) PT INR Fibrinogen dRVVT Confirm Interp Factor V Activity POC ABG pH POC ABG pCO2 POC ABG pO2 ABG pO2 ABG HCO3 ABG Base Excess ABG Hemoglobin Oxyhemoglobin Sodium Potassium Chloride Carbon Dioxide BUN Creatinine Glucose POC Glucose 132 H 120 H Lactic Acid Calcium Phosphorus Magnesium Direct Bilirubin AST ALT Alkaline Phosphatase Lactate Dehydrogenase Troponin T C-Reactive Protein Total Protein Albumin Prealbumin Triglycerides Cholesterol LDL Cholesterol Direct HDL Cholesterol Urine pH Urine WBC (Auto) Urine Creatinine Urine Total Protein Fluid Total Protein Vancomycin Trough Rheumatoid Factor Complement C4 Miscellaneous Test Crossmatch 11/13/16 11/13/16 11/13/16 11:43 17:09 23:41 WBC RBC Hgb Hct MCV MCH MCHC RDW Plt Count Lymph % (Auto) [place] % (Auto) Lymph # [place] # Baso # Seg Neutrophils % Seg Neuts % (Manual) Lymphocytes % (Manual) Monocytes % (Manual) Eosinophils % (Manual) Basophils % (Manual) Nucleated RBC % Seg Neutrophils # Seg Neutrophils # Man Lymphocytes # (Manual) Monocytes # (Manual) Eosinophils # (Manual) Basophils # (Manual) PT INR Fibrinogen dRVVT Confirm Interp Factor V Activity POC ABG pH POC ABG pCO2 POC ABG pO2 ABG pO2 ABG HCO3 ABG Base Excess ABG Hemoglobin Oxyhemoglobin Sodium Potassium Chloride Carbon Dioxide BUN Creatinine Glucose POC Glucose 114 H 113 H 108 H Lactic Acid Calcium Phosphorus Magnesium Direct Bilirubin AST ALT Alkaline Phosphatase Lactate Dehydrogenase Troponin T C-Reactive Protein Total Protein Albumin Prealbumin Triglycerides Cholesterol LDL Cholesterol Direct HDL Cholesterol Urine pH Urine WBC (Auto) Urine Creatinine Urine Total Protein Fluid Total Protein Vancomycin Trough Rheumatoid Factor Complement C4 Miscellaneous Test Crossmatch 11/13/16 11/15/16 11/15/16 Unknown 00:37 03:30 WBC 11.2 H RBC 2.72 L Hgb 7.6 L Hct 23.4 L MCV MCH MCHC RDW 16.5 H Plt Count Lymph % (Auto) [place] % (Auto) Lymph # [place] # Baso # Seg Neutrophils % Seg Neuts % (Manual) Lymphocytes % (Manual) Monocytes % (Manual) Eosinophils % (Manual) Basophils % (Manual) Nucleated RBC % Seg Neutrophils # Seg Neutrophils # Man Lymphocytes # (Manual) Monocytes # (Manual) Eosinophils # (Manual) Basophils # (Manual) PT INR Fibrinogen dRVVT Confirm Interp Factor V Activity POC ABG pH POC ABG pCO2 POC ABG pO2 ABG pO2 ABG HCO3 ABG Base Excess ABG Hemoglobin Oxyhemoglobin Sodium 135 L Potassium Chloride 95.2 L Carbon Dioxide BUN 52 H Creatinine 2.2 H Glucose POC Glucose 108 H Lactic Acid Calcium Phosphorus Magnesium Direct Bilirubin AST ALT Alkaline Phosphatase Lactate Dehydrogenase Troponin T C-Reactive Protein Total Protein Albumin Prealbumin Triglycerides Cholesterol LDL Cholesterol Direct HDL Cholesterol Urine pH Urine WBC (Auto) Urine Creatinine Urine Total Protein Fluid Total Protein Vancomycin Trough Rheumatoid Factor Complement C4 Miscellaneous Test Crossmatch 11/15/16 11/15/16 11/15/16 03:30 05:04 11:50 WBC RBC Hgb Hct MCV MCH MCHC RDW Plt Count Lymph % (Auto) [place] % (Auto) Lymph # [place] # Baso # Seg Neutrophils % Seg Neuts % (Manual) Lymphocytes % (Manual) Monocytes % (Manual) Eosinophils % (Manual) Basophils % (Manual) Nucleated RBC % Seg Neutrophils # Seg Neutrophils # Man Lymphocytes # (Manual) Monocytes # (Manual) Eosinophils # (Manual) Basophils # (Manual) PT INR Fibrinogen dRVVT Confirm Interp Factor V Activity POC ABG pH POC ABG pCO2 POC ABG pO2 ABG pO2 ABG HCO3 ABG Base Excess ABG Hemoglobin Oxyhemoglobin Sodium Potassium 3.4 L Chloride Carbon Dioxide BUN 25 H Creatinine 1.5 H Glucose 103 H POC Glucose 121 H 144 H Lactic Acid Calcium Phosphorus Magnesium Direct Bilirubin AST ALT Alkaline Phosphatase Lactate Dehydrogenase Troponin T C-Reactive Protein Total Protein Albumin Prealbumin Triglycerides Cholesterol LDL Cholesterol Direct HDL Cholesterol Urine pH Urine WBC (Auto) Urine Creatinine Urine Total Protein Fluid Total Protein Vancomycin Trough Rheumatoid Factor Complement C4 Miscellaneous Test Crossmatch 11/15/16 11/15/16 11/16/16 21:28 23:20 11:44 WBC RBC Hgb Hct MCV MCH MCHC RDW Plt Count Lymph % (Auto) [place] % (Auto) Lymph # [place] # Baso # Seg Neutrophils % Seg Neuts % (Manual) Lymphocytes % (Manual) Monocytes % (Manual) Eosinophils % (Manual) Basophils % (Manual) Nucleated RBC % Seg Neutrophils # Seg Neutrophils # Man Lymphocytes # (Manual) Monocytes # (Manual) Eosinophils # (Manual) Basophils # (Manual) PT INR Fibrinogen dRVVT Confirm Interp Factor V Activity POC ABG pH 7.462 H POC ABG pCO2 POC ABG pO2 71 L ABG pO2 ABG HCO3 ABG Base Excess ABG Hemoglobin Oxyhemoglobin Sodium Potassium Chloride Carbon Dioxide BUN Creatinine Glucose POC Glucose 116 H 133 H Lactic Acid Calcium Phosphorus Magnesium Direct Bilirubin AST ALT Alkaline Phosphatase Lactate Dehydrogenase Troponin T C-Reactive Protein Total Protein Albumin Prealbumin Triglycerides Cholesterol LDL Cholesterol Direct HDL Cholesterol Urine pH Urine WBC (Auto) Urine Creatinine Urine Total Protein Fluid Total Protein Vancomycin Trough Rheumatoid Factor Complement C4 Miscellaneous Test Crossmatch 11/16/16 11/16/16 11/16/16 12:20 17:05 23:35 WBC 11.7 H RBC 2.73 L Hgb 7.6 L Hct 23.7 L MCV MCH MCHC RDW 16.6 H Plt Count Lymph % (Auto) [place] % (Auto) Lymph # [place] # Baso # Seg Neutrophils % Seg Neuts % (Manual) Lymphocytes % (Manual) Monocytes % (Manual) Eosinophils % (Manual) Basophils % (Manual) Nucleated RBC % Seg Neutrophils # Seg Neutrophils # Man Lymphocytes # (Manual) Monocytes # (Manual) Eosinophils # (Manual) Basophils # (Manual) PT INR Fibrinogen dRVVT Confirm Interp Factor V Activity POC ABG pH POC ABG pCO2 POC ABG pO2 ABG pO2 ABG HCO3 ABG Base Excess ABG Hemoglobin Oxyhemoglobin Sodium Potassium Chloride Carbon Dioxide BUN Creatinine Glucose POC Glucose 154 H 125 H Lactic Acid Calcium Phosphorus Magnesium Direct Bilirubin AST ALT Alkaline Phosphatase Lactate Dehydrogenase Troponin T C-Reactive Protein Total Protein Albumin Prealbumin Triglycerides Cholesterol LDL Cholesterol Direct HDL Cholesterol Urine pH Urine WBC (Auto) Urine Creatinine Urine Total Protein Fluid Total Protein Vancomycin Trough Rheumatoid Factor Complement C4 Miscellaneous Test Crossmatch 11/17/16 11/17/16 11/17/16 03:20 03:20 03:20 WBC RBC 2.55 L Hgb 7.3 L Hct 21.9 L MCV MCH MCHC RDW 16.6 H Plt Count Lymph % (Auto) [place] % (Auto) 11.5 H Lymph # [place] # 1.1 H Baso # Seg Neutrophils % Seg Neuts % (Manual) Lymphocytes % (Manual) Monocytes % (Manual) Eosinophils % (Manual) Basophils % (Manual) Nucleated RBC % Seg Neutrophils # Seg Neutrophils # Man Lymphocytes # (Manual) Monocytes # (Manual) Eosinophils # (Manual) Basophils # (Manual) PT 16.8 H INR 1.37 H Fibrinogen dRVVT Confirm Interp Factor V Activity POC ABG pH POC ABG pCO2 POC ABG pO2 ABG pO2 ABG HCO3 ABG Base Excess ABG Hemoglobin Oxyhemoglobin Sodium Potassium 3.5 L Chloride Carbon Dioxide BUN 21 H Creatinine Glucose POC Glucose Lactic Acid Calcium 7.9 L Phosphorus Magnesium Direct Bilirubin AST ALT Alkaline Phosphatase Lactate Dehydrogenase Troponin T C-Reactive Protein Total Protein Albumin Prealbumin Triglycerides Cholesterol LDL Cholesterol Direct HDL Cholesterol Urine pH Urine WBC (Auto) Urine Creatinine Urine Total Protein Fluid Total Protein Vancomycin Trough Rheumatoid Factor Complement C4 Miscellaneous Test Crossmatch 11/17/16 11/17/16 11/17/16 06:34 11:21 21:22 WBC RBC Hgb Hct MCV MCH MCHC RDW Plt Count Lymph % (Auto) [place] % (Auto) Lymph # [place] # Baso # Seg Neutrophils % Seg Neuts % (Manual) Lymphocytes % (Manual) Monocytes % (Manual) Eosinophils % (Manual) Basophils % (Manual) Nucleated RBC % Seg Neutrophils # Seg Neutrophils # Man Lymphocytes # (Manual) Monocytes # (Manual) Eosinophils # (Manual) Basophils # (Manual) PT INR Fibrinogen dRVVT Confirm Interp Factor V Activity POC ABG pH 7.467 H POC ABG pCO2 POC ABG pO2 73 L ABG pO2 ABG HCO3 ABG Base Excess ABG Hemoglobin Oxyhemoglobin Sodium Potassium Chloride Carbon Dioxide BUN Creatinine Glucose POC Glucose 121 H 119 H Lactic Acid Calcium Phosphorus Magnesium Direct Bilirubin AST ALT Alkaline Phosphatase Lactate Dehydrogenase Troponin T C-Reactive Protein Total Protein Albumin Prealbumin Triglycerides Cholesterol LDL Cholesterol Direct HDL Cholesterol Urine pH Urine WBC (Auto) Urine Creatinine Urine Total Protein Fluid Total Protein Vancomycin Trough Rheumatoid Factor Complement C4 Miscellaneous Test Crossmatch 11/18/16 11/18/16 11/19/16 12:16 17:19 00:00 WBC RBC Hgb Hct MCV MCH MCHC RDW Plt Count Lymph % (Auto) [place] % (Auto) Lymph # [place] # Baso # Seg Neutrophils % Seg Neuts % (Manual) Lymphocytes % (Manual) Monocytes % (Manual) Eosinophils % (Manual) Basophils % (Manual) Nucleated RBC % Seg Neutrophils # Seg Neutrophils # Man Lymphocytes # (Manual) Monocytes # (Manual) Eosinophils # (Manual) Basophils # (Manual) PT INR Fibrinogen dRVVT Confirm Interp Factor V Activity POC ABG pH POC ABG pCO2 POC ABG pO2 ABG pO2 ABG HCO3 ABG Base Excess ABG Hemoglobin Oxyhemoglobin Sodium Potassium Chloride Carbon Dioxide BUN Creatinine Glucose POC Glucose 124 H 162 H 139 H Lactic Acid Calcium Phosphorus Magnesium Direct Bilirubin AST ALT Alkaline Phosphatase Lactate Dehydrogenase Troponin T C-Reactive Protein Total Protein Albumin Prealbumin Triglycerides Cholesterol LDL Cholesterol Direct HDL Cholesterol Urine pH Urine WBC (Auto) Urine Creatinine Urine Total Protein Fluid Total Protein Vancomycin Trough Rheumatoid Factor Complement C4 Miscellaneous Test Crossmatch 11/19/16 11/19/16 11/20/16 05:00 12:43 00:40 WBC RBC Hgb Hct MCV MCH MCHC RDW Plt Count Lymph % (Auto) [place] % (Auto) Lymph # [place] # Baso # Seg Neutrophils % Seg Neuts % (Manual) Lymphocytes % (Manual) Monocytes % (Manual) Eosinophils % (Manual) Basophils % (Manual) Nucleated RBC % Seg Neutrophils # Seg Neutrophils # Man Lymphocytes # (Manual) Monocytes # (Manual) Eosinophils # (Manual) Basophils # (Manual) PT INR Fibrinogen dRVVT Confirm Interp Factor V Activity POC ABG pH POC ABG pCO2 POC ABG pO2 ABG pO2 ABG HCO3 ABG Base Excess ABG Hemoglobin Oxyhemoglobin Sodium Potassium Chloride Carbon Dioxide BUN Creatinine Glucose POC Glucose 110 H 125 H 136 H Lactic Acid Calcium Phosphorus Magnesium Direct Bilirubin AST ALT Alkaline Phosphatase Lactate Dehydrogenase Troponin T C-Reactive Protein Total Protein Albumin Prealbumin Triglycerides Cholesterol LDL Cholesterol Direct HDL Cholesterol Urine pH Urine WBC (Auto) Urine Creatinine Urine Total Protein Fluid Total Protein Vancomycin Trough Rheumatoid Factor Complement C4 Miscellaneous Test Crossmatch 11/20/16 11/20/16 11/20/16 05:00 05:00 05:51 WBC 13.1 H RBC 2.74 L Hgb 7.7 L Hct 23.6 L MCV MCH MCHC RDW 16.9 H Plt Count Lymph % (Auto) [place] % (Auto) 10.8 H Lymph # [place] # 1.4 H Baso # Seg Neutrophils % Seg Neuts % (Manual) Lymphocytes % (Manual) Monocytes % (Manual) Eosinophils % (Manual) Basophils % (Manual) Nucleated RBC % Seg Neutrophils # 7.9 H Seg Neutrophils # Man Lymphocytes # (Manual) Monocytes # (Manual) Eosinophils # (Manual) Basophils # (Manual) PT INR Fibrinogen dRVVT Confirm Interp Factor V Activity POC ABG pH POC ABG pCO2 POC ABG pO2 ABG pO2 ABG HCO3 ABG Base Excess ABG Hemoglobin Oxyhemoglobin Sodium Potassium Chloride Carbon Dioxide BUN 31 H Creatinine 1.8 H Glucose 129 H POC Glucose 133 H Lactic Acid Calcium Phosphorus Magnesium Direct Bilirubin AST ALT Alkaline Phosphatase Lactate Dehydrogenase Troponin T C-Reactive Protein Total Protein Albumin Prealbumin Triglycerides Cholesterol LDL Cholesterol Direct HDL Cholesterol Urine pH Urine WBC (Auto) Urine Creatinine Urine Total Protein Fluid Total Protein Vancomycin Trough Rheumatoid Factor Complement C4 Miscellaneous Test Crossmatch 11/20/16 11/20/16 11/21/16 12:40 18:10 01:20 WBC RBC Hgb Hct MCV MCH MCHC RDW Plt Count Lymph % (Auto) [place] % (Auto) Lymph # [place] # Baso # Seg Neutrophils % Seg Neuts % (Manual) Lymphocytes % (Manual) Monocytes % (Manual) Eosinophils % (Manual) Basophils % (Manual) Nucleated RBC % Seg Neutrophils # Seg Neutrophils # Man Lymphocytes # (Manual) Monocytes # (Manual) Eosinophils # (Manual) Basophils # (Manual) PT INR Fibrinogen dRVVT Confirm Interp Factor V Activity POC ABG pH POC ABG pCO2 POC ABG pO2 ABG pO2 ABG HCO3 ABG Base Excess ABG Hemoglobin Oxyhemoglobin Sodium Potassium Chloride Carbon Dioxide BUN Creatinine Glucose POC Glucose 134 H 138 H 136 H Lactic Acid Calcium Phosphorus Magnesium Direct Bilirubin AST ALT Alkaline Phosphatase Lactate Dehydrogenase Troponin T C-Reactive Protein Total Protein Albumin Prealbumin Triglycerides Cholesterol LDL Cholesterol Direct HDL Cholesterol Urine pH Urine WBC (Auto) Urine Creatinine Urine Total Protein Fluid Total Protein Vancomycin Trough Rheumatoid Factor Complement C4 Miscellaneous Test Crossmatch 11/21/16 11/21/16 11/21/16 07:04 07:45 07:45 WBC 22.0 H RBC 2.91 L Hgb 8.2 L Hct 25.4 L MCV MCH MCHC RDW 17.1 H Plt Count Lymph % (Auto) [place] % (Auto) Lymph # [place] # Baso # Seg Neutrophils % Seg Neuts % (Manual) Lymphocytes % (Manual) 8.0 L Monocytes % (Manual) Eosinophils % (Manual) Basophils % (Manual) Nucleated RBC % Seg Neutrophils # Seg Neutrophils # Man 14.7 H Lymphocytes # (Manual) Monocytes # (Manual) 1.1 H Eosinophils # (Manual) Basophils # (Manual) PT INR Fibrinogen dRVVT Confirm Interp Factor V Activity POC ABG pH POC ABG pCO2 POC ABG pO2 ABG pO2 ABG HCO3 ABG Base Excess ABG Hemoglobin Oxyhemoglobin Sodium Potassium Chloride Carbon Dioxide BUN 42 H Creatinine 2.0 H Glucose POC Glucose 108 H Lactic Acid Calcium Phosphorus Magnesium Direct Bilirubin AST ALT Alkaline Phosphatase Lactate Dehydrogenase Troponin T C-Reactive Protein Total Protein Albumin Prealbumin Triglycerides Cholesterol LDL Cholesterol Direct HDL Cholesterol Urine pH Urine WBC (Auto) Urine Creatinine Urine Total Protein Fluid Total Protein Vancomycin Trough Rheumatoid Factor Complement C4 Miscellaneous Test Crossmatch 11/21/16 11/21/16 11/21/16 08:38 10:09 11:20 WBC RBC Hgb Hct MCV MCH MCHC RDW Plt Count Lymph % (Auto) [place] % (Auto) Lymph # [place] # Baso # Seg Neutrophils % Seg Neuts % (Manual) Lymphocytes % (Manual) Monocytes % (Manual) Eosinophils % (Manual) Basophils % (Manual) Nucleated RBC % Seg Neutrophils # Seg Neutrophils # Man Lymphocytes # (Manual) Monocytes # (Manual) Eosinophils # (Manual) Basophils # (Manual) PT INR Fibrinogen dRVVT Confirm Interp Factor V Activity POC ABG pH 7.346 L POC ABG pCO2 34.4 L POC ABG pO2 314 H ABG pO2 ABG HCO3 ABG Base Excess ABG Hemoglobin Oxyhemoglobin Sodium Potassium Chloride Carbon Dioxide BUN Creatinine Glucose POC Glucose 195 H 153 H Lactic Acid Calcium Phosphorus Magnesium Direct Bilirubin AST ALT Alkaline Phosphatase Lactate Dehydrogenase Troponin T C-Reactive Protein Total Protein Albumin Prealbumin Triglycerides Cholesterol LDL Cholesterol Direct HDL Cholesterol Urine pH Urine WBC (Auto) Urine Creatinine Urine Total Protein Fluid Total Protein Vancomycin Trough Rheumatoid Factor Complement C4 Miscellaneous Test Crossmatch 11/21/16 11/22/16 11/22/16 23:37 04:48 05:00 WBC 29.7 H RBC 2.73 L Hgb 7.5 L Hct 24.2 L MCV MCH 27 L MCHC RDW 17.4 H Plt Count Lymph % (Auto) [place] % (Auto) Lymph # [place] # Baso # Seg Neutrophils % Seg Neuts % (Manual) Lymphocytes % (Manual) 7.0 L Monocytes % (Manual) Eosinophils % (Manual) Basophils % (Manual) Nucleated RBC % Seg Neutrophils # Seg Neutrophils # Man 15.4 H Lymphocytes # (Manual) Monocytes # (Manual) Eosinophils # (Manual) Basophils # (Manual) PT INR Fibrinogen dRVVT Confirm Interp Factor V Activity POC ABG pH POC ABG pCO2 24.6 L POC ABG pO2 189 H ABG pO2 ABG HCO3 ABG Base Excess ABG Hemoglobin Oxyhemoglobin Sodium Potassium Chloride Carbon Dioxide BUN Creatinine Glucose POC Glucose 65 L Lactic Acid Calcium Phosphorus Magnesium Direct Bilirubin AST ALT Alkaline Phosphatase Lactate Dehydrogenase Troponin T C-Reactive Protein Total Protein Albumin Prealbumin Triglycerides Cholesterol LDL Cholesterol Direct HDL Cholesterol Urine pH Urine WBC (Auto) Urine Creatinine Urine Total Protein Fluid Total Protein Vancomycin Trough Rheumatoid Factor Complement C4 Miscellaneous Test Crossmatch 11/22/16 11/23/16 11/23/16 05:00 03:44 04:06 WBC RBC 2.52 L Hgb 7.2 L Hct 21.5 L MCV MCH MCHC RDW 17.1 H Plt Count Lymph % (Auto) [place] % (Auto) 12.4 H Lymph # [place] # 1.4 H Baso # Seg Neutrophils % Seg Neuts % (Manual) Lymphocytes % (Manual) Monocytes % (Manual) Eosinophils % (Manual) Basophils % (Manual) Nucleated RBC % Seg Neutrophils # Seg Neutrophils # Man Lymphocytes # (Manual) Monocytes # (Manual) Eosinophils # (Manual) Basophils # (Manual) PT INR Fibrinogen dRVVT Confirm Interp Factor V Activity POC ABG pH 7.493 H POC ABG pCO2 29.5 L POC ABG pO2 49 L ABG pO2 ABG HCO3 ABG Base Excess ABG Hemoglobin Oxyhemoglobin Sodium 134 L Potassium Chloride 95.9 L Carbon Dioxide 14 L D BUN 51 H Creatinine 2.6 H Glucose POC Glucose Lactic Acid Calcium Phosphorus Magnesium Direct Bilirubin AST ALT Alkaline Phosphatase Lactate Dehydrogenase Troponin T C-Reactive Protein Total Protein Albumin Prealbumin Triglycerides Cholesterol LDL Cholesterol Direct HDL Cholesterol Urine pH Urine WBC (Auto) Urine Creatinine Urine Total Protein Fluid Total Protein Vancomycin Trough Rheumatoid Factor Complement C4 Miscellaneous Test Crossmatch 11/23/16 11/23/16 11/24/16 04:06 11:29 06:39 WBC RBC Hgb Hct MCV MCH MCHC RDW Plt Count Lymph % (Auto) [place] % (Auto) Lymph # [place] # Baso # Seg Neutrophils % Seg Neuts % (Manual) Lymphocytes % (Manual) Monocytes % (Manual) Eosinophils % (Manual) Basophils % (Manual) Nucleated RBC % Seg Neutrophils # Seg Neutrophils # Man Lymphocytes # (Manual) Monocytes # (Manual) Eosinophils # (Manual) Basophils # (Manual) PT INR Fibrinogen dRVVT Confirm Interp Factor V Activity POC ABG pH POC ABG pCO2 POC ABG pO2 ABG pO2 ABG HCO3 ABG Base Excess ABG Hemoglobin Oxyhemoglobin Sodium 136 L Potassium Chloride 95.2 L Carbon Dioxide BUN 60 H Creatinine 2.9 H Glucose POC Glucose 69 L 305 H Lactic Acid Calcium Phosphorus Magnesium 1.60 L Direct Bilirubin AST ALT Alkaline Phosphatase Lactate Dehydrogenase Troponin T C-Reactive Protein Total Protein Albumin Prealbumin Triglycerides Cholesterol LDL Cholesterol Direct HDL Cholesterol Urine pH Urine WBC (Auto) Urine Creatinine Urine Total Protein Fluid Total Protein Vancomycin Trough Rheumatoid Factor Complement C4 Miscellaneous Test Crossmatch 11/24/16 11/24/16 11/24/16 06:43 08:08 08:08 WBC 11.2 H RBC 2.47 L Hgb 6.8 L Hct 20.6 L MCV MCH MCHC RDW 17.0 H Plt Count Lymph % (Auto) [place] % (Auto) 10.3 H Lymph # [place] # 1.2 H Baso # Seg Neutrophils % Seg Neuts % (Manual) Lymphocytes % (Manual) Monocytes % (Manual) Eosinophils % (Manual) Basophils % (Manual) Nucleated RBC % Seg Neutrophils # Seg Neutrophils # Man Lymphocytes # (Manual) Monocytes # (Manual) Eosinophils # (Manual) Basophils # (Manual) PT INR Fibrinogen dRVVT Confirm Interp Factor V Activity POC ABG pH POC ABG pCO2 POC ABG pO2 ABG pO2 ABG HCO3 ABG Base Excess ABG Hemoglobin Oxyhemoglobin Sodium 135 L Potassium Chloride 96.3 L Carbon Dioxide BUN 61 H Creatinine 3.1 H Glucose POC Glucose 62 L Lactic Acid Calcium 8.2 L Phosphorus Magnesium Direct Bilirubin AST ALT Alkaline Phosphatase Lactate Dehydrogenase Troponin T C-Reactive Protein Total Protein Albumin Prealbumin Triglycerides Cholesterol LDL Cholesterol Direct HDL Cholesterol Urine pH Urine WBC (Auto) Urine Creatinine Urine Total Protein Fluid Total Protein Vancomycin Trough Rheumatoid Factor Complement C4 Miscellaneous Test Crossmatch 11/24/16 11/24/16 11/24/16 08:34 11:20 12:41 WBC RBC Hgb Hct MCV MCH MCHC RDW Plt Count Lymph % (Auto) [place] % (Auto) Lymph # [place] # Baso # Seg Neutrophils % Seg Neuts % (Manual) Lymphocytes % (Manual) Monocytes % (Manual) Eosinophils % (Manual) Basophils % (Manual) Nucleated RBC % Seg Neutrophils # Seg Neutrophils # Man Lymphocytes # (Manual) Monocytes # (Manual) Eosinophils # (Manual) Basophils # (Manual) PT INR Fibrinogen dRVVT Confirm Interp Factor V Activity POC ABG pH POC ABG pCO2 POC ABG pO2 ABG pO2 ABG HCO3 ABG Base Excess ABG Hemoglobin Oxyhemoglobin Sodium Potassium Chloride Carbon Dioxide BUN Creatinine Glucose POC Glucose 108 H Lactic Acid Calcium Phosphorus Magnesium 1.60 L Direct Bilirubin AST ALT Alkaline Phosphatase Lactate Dehydrogenase Troponin T C-Reactive Protein Total Protein Albumin Prealbumin Triglycerides Cholesterol LDL Cholesterol Direct HDL Cholesterol Urine pH Urine WBC (Auto) Urine Creatinine Urine Total Protein Fluid Total Protein Vancomycin Trough Rheumatoid Factor Complement C4 Miscellaneous Test Crossmatch See Detail 11/25/16 11/25/16 11/25/16 00:03 04:42 04:42 WBC RBC 3.03 L Hgb 8.6 L Hct 25.3 L MCV MCH MCHC RDW 16.2 H Plt Count Lymph % (Auto) [place] % (Auto) 8.1 H Lymph # [place] # Baso # Seg Neutrophils % 71.3 H Seg Neuts % (Manual) Lymphocytes % (Manual) Monocytes % (Manual) Eosinophils % (Manual) Basophils % (Manual) Nucleated RBC % Seg Neutrophils # Seg Neutrophils # Man Lymphocytes # (Manual) Monocytes # (Manual) Eosinophils # (Manual) Basophils # (Manual) PT INR Fibrinogen dRVVT Confirm Interp Factor V Activity POC ABG pH POC ABG pCO2 POC ABG pO2 ABG pO2 ABG HCO3 ABG Base Excess ABG Hemoglobin Oxyhemoglobin Sodium Potassium Chloride Carbon Dioxide BUN 61 H Creatinine 3.0 H Glucose 102 H POC Glucose 113 H Lactic Acid Calcium 8.2 L Phosphorus Magnesium Direct Bilirubin AST ALT Alkaline Phosphatase 142 H Lactate Dehydrogenase Troponin T C-Reactive Protein Total Protein 5.7 L Albumin 1.5 L Prealbumin Triglycerides Cholesterol LDL Cholesterol Direct HDL Cholesterol Urine pH Urine WBC (Auto) Urine Creatinine Urine Total Protein Fluid Total Protein Vancomycin Trough Rheumatoid Factor Complement C4 Miscellaneous Test Crossmatch 11/25/16 11/25/16 11/25/16 05:12 11:31 14:12 WBC RBC Hgb Hct MCV MCH MCHC RDW Plt Count Lymph % (Auto) [place] % (Auto) Lymph # [place] # Baso # Seg Neutrophils % Seg Neuts % (Manual) Lymphocytes % (Manual) Monocytes % (Manual) Eosinophils % (Manual) Basophils % (Manual) Nucleated RBC % Seg Neutrophils # Seg Neutrophils # Man Lymphocytes # (Manual) Monocytes # (Manual) Eosinophils # (Manual) Basophils # (Manual) PT INR Fibrinogen dRVVT Confirm Interp Factor V Activity POC ABG pH 7.487 H POC ABG pCO2 POC ABG pO2 153 H ABG pO2 ABG HCO3 ABG Base Excess ABG Hemoglobin Oxyhemoglobin Sodium Potassium Chloride Carbon Dioxide BUN Creatinine Glucose POC Glucose 131 H 140 H Lactic Acid Calcium Phosphorus Magnesium Direct Bilirubin AST ALT Alkaline Phosphatase Lactate Dehydrogenase Troponin T C-Reactive Protein Total Protein Albumin Prealbumin Triglycerides Cholesterol LDL Cholesterol Direct HDL Cholesterol Urine pH Urine WBC (Auto) Urine Creatinine Urine Total Protein Fluid Total Protein Vancomycin Trough Rheumatoid Factor Complement C4 Miscellaneous Test Crossmatch 11/25/16 11/26/16 11/26/16 17:23 00:09 05:13 WBC RBC 2.94 L Hgb 8.4 L Hct 24.6 L MCV MCH MCHC RDW 16.4 H Plt Count Lymph % (Auto) [place] % (Auto) 12.3 H Lymph # [place] # 1.1 H Baso # Seg Neutrophils % Seg Neuts % (Manual) Lymphocytes % (Manual) Monocytes % (Manual) Eosinophils % (Manual) Basophils % (Manual) Nucleated RBC % Seg Neutrophils # Seg Neutrophils # Man Lymphocytes # (Manual) Monocytes # (Manual) Eosinophils # (Manual) Basophils # (Manual) PT INR Fibrinogen dRVVT Confirm Interp Factor V Activity POC ABG pH POC ABG pCO2 POC ABG pO2 ABG pO2 ABG HCO3 ABG Base Excess ABG Hemoglobin Oxyhemoglobin Sodium Potassium Chloride Carbon Dioxide BUN Creatinine Glucose POC Glucose 146 H 112 H Lactic Acid Calcium Phosphorus Magnesium Direct Bilirubin AST ALT Alkaline Phosphatase Lactate Dehydrogenase Troponin T C-Reactive Protein Total Protein Albumin Prealbumin Triglycerides Cholesterol LDL Cholesterol Direct HDL Cholesterol Urine pH Urine WBC (Auto) Urine Creatinine Urine Total Protein Fluid Total Protein Vancomycin Trough Rheumatoid Factor Complement C4 Miscellaneous Test Crossmatch 11/26/16 11/26/16 11/26/16 05:13 05:28 11:53 WBC RBC Hgb Hct MCV MCH MCHC RDW Plt Count Lymph % (Auto) [place] % (Auto) Lymph # [place] # Baso # Seg Neutrophils % Seg Neuts % (Manual) Lymphocytes % (Manual) Monocytes % (Manual) Eosinophils % (Manual) Basophils % (Manual) Nucleated RBC % Seg Neutrophils # Seg Neutrophils # Man Lymphocytes # (Manual) Monocytes # (Manual) Eosinophils # (Manual) Basophils # (Manual) PT INR Fibrinogen dRVVT Confirm Interp Factor V Activity POC ABG pH POC ABG pCO2 POC ABG pO2 ABG pO2 ABG HCO3 ABG Base Excess ABG Hemoglobin Oxyhemoglobin Sodium Potassium Chloride 97.8 L Carbon Dioxide BUN 37 H Creatinine 2.0 H Glucose 109 H POC Glucose 117 H 111 H Lactic Acid Calcium 7.9 L Phosphorus 1.80 L D Magnesium Direct Bilirubin AST ALT Alkaline Phosphatase Lactate Dehydrogenase Troponin T C-Reactive Protein Total Protein Albumin Prealbumin Triglycerides Cholesterol LDL Cholesterol Direct HDL Cholesterol Urine pH Urine WBC (Auto) Urine Creatinine Urine Total Protein Fluid Total Protein Vancomycin Trough Rheumatoid Factor Complement C4 Miscellaneous Test Crossmatch 11/26/16 11/27/16 11/27/16 17:14 04:50 06:02 WBC RBC Hgb Hct MCV MCH MCHC RDW Plt Count Lymph % (Auto) [place] % (Auto) Lymph # [place] # Baso # Seg Neutrophils % Seg Neuts % (Manual) Lymphocytes % (Manual) Monocytes % (Manual) Eosinophils % (Manual) Basophils % (Manual) Nucleated RBC % Seg Neutrophils # Seg Neutrophils # Man Lymphocytes # (Manual) Monocytes # (Manual) Eosinophils # (Manual) Basophils # (Manual) PT INR Fibrinogen dRVVT Confirm Interp Factor V Activity POC ABG pH POC ABG pCO2 POC ABG pO2 ABG pO2 75.2 L ABG HCO3 26.4 H ABG Base Excess ABG Hemoglobin 7.6 L Oxyhemoglobin 94.8 L Sodium Potassium Chloride Carbon Dioxide BUN 49 H Creatinine 2.3 H Glucose POC Glucose 115 H Lactic Acid Calcium Phosphorus 1.50 L Magnesium Direct Bilirubin AST ALT Alkaline Phosphatase Lactate Dehydrogenase Troponin T C-Reactive Protein Total Protein Albumin Prealbumin Triglycerides Cholesterol LDL Cholesterol Direct HDL Cholesterol Urine pH Urine WBC (Auto) Urine Creatinine Urine Total Protein Fluid Total Protein Vancomycin Trough Rheumatoid Factor Complement C4 Miscellaneous Test Crossmatch 11/27/16 11/27/16 11/27/16 06:02 11:25 17:25 WBC 11.6 H RBC 2.75 L Hgb 7.6 L Hct 23.4 L MCV MCH MCHC RDW 16.5 H Plt Count Lymph % (Auto) [place] % (Auto) Lymph # [place] # Baso # Seg Neutrophils % Seg Neuts % (Manual) Lymphocytes % (Manual) Monocytes % (Manual) Eosinophils % (Manual) Basophils % (Manual) Nucleated RBC % Seg Neutrophils # Seg Neutrophils # Man Lymphocytes # (Manual) Monocytes # (Manual) Eosinophils # (Manual) Basophils # (Manual) PT INR Fibrinogen dRVVT Confirm Interp Factor V Activity POC ABG pH POC ABG pCO2 POC ABG pO2 ABG pO2 ABG HCO3 ABG Base Excess ABG Hemoglobin Oxyhemoglobin Sodium Potassium Chloride Carbon Dioxide BUN Creatinine Glucose POC Glucose 114 H 126 H Lactic Acid Calcium Phosphorus Magnesium Direct Bilirubin AST ALT Alkaline Phosphatase Lactate Dehydrogenase Troponin T C-Reactive Protein Total Protein Albumin Prealbumin Triglycerides Cholesterol LDL Cholesterol Direct HDL Cholesterol Urine pH Urine WBC (Auto) Urine Creatinine Urine Total Protein Fluid Total Protein Vancomycin Trough Rheumatoid Factor Complement C4 Miscellaneous Test Crossmatch 11/28/16 11/28/16 11/28/16 04:45 05:33 05:44 WBC RBC Hgb Hct MCV MCH MCHC RDW Plt Count Lymph % (Auto) [place] % (Auto) Lymph # [place] # Baso # Seg Neutrophils % Seg Neuts % (Manual) Lymphocytes % (Manual) Monocytes % (Manual) Eosinophils % (Manual) Basophils % (Manual) Nucleated RBC % Seg Neutrophils # Seg Neutrophils # Man Lymphocytes # (Manual) Monocytes # (Manual) Eosinophils # (Manual) Basophils # (Manual) PT INR Fibrinogen dRVVT Confirm Interp Factor V Activity POC ABG pH POC ABG pCO2 POC ABG pO2 ABG pO2 99.3 H ABG HCO3 ABG Base Excess ABG Hemoglobin 8.3 L Oxyhemoglobin Sodium Potassium Chloride Carbon Dioxide BUN 63 H Creatinine 2.4 H Glucose 102 H POC Glucose 108 H Lactic Acid Calcium Phosphorus 1.80 L Magnesium Direct Bilirubin AST ALT Alkaline Phosphatase Lactate Dehydrogenase Troponin T C-Reactive Protein Total Protein Albumin Prealbumin Triglycerides Cholesterol LDL Cholesterol Direct HDL Cholesterol Urine pH Urine WBC (Auto) Urine Creatinine Urine Total Protein Fluid Total Protein Vancomycin Trough Rheumatoid Factor Complement C4 Miscellaneous Test Crossmatch 11/28/16 11/28/16 11/28/16 12:31 16:09 23:46 WBC RBC Hgb Hct MCV MCH MCHC RDW Plt Count Lymph % (Auto) [place] % (Auto) Lymph # [place] # Baso # Seg Neutrophils % Seg Neuts % (Manual) Lymphocytes % (Manual) Monocytes % (Manual) Eosinophils % (Manual) Basophils % (Manual) Nucleated RBC % Seg Neutrophils # Seg Neutrophils # Man Lymphocytes # (Manual) Monocytes # (Manual) Eosinophils # (Manual) Basophils # (Manual) PT INR Fibrinogen dRVVT Confirm Interp Factor V Activity POC ABG pH POC ABG pCO2 POC ABG pO2 ABG pO2 ABG HCO3 ABG Base Excess ABG Hemoglobin Oxyhemoglobin Sodium Potassium Chloride Carbon Dioxide BUN Creatinine Glucose POC Glucose 126 H 111 H 119 H Lactic Acid Calcium Phosphorus Magnesium Direct Bilirubin AST ALT Alkaline Phosphatase Lactate Dehydrogenase Troponin T C-Reactive Protein Total Protein Albumin Prealbumin Triglycerides Cholesterol LDL Cholesterol Direct HDL Cholesterol Urine pH Urine WBC (Auto) Urine Creatinine Urine Total Protein Fluid Total Protein Vancomycin Trough Rheumatoid Factor Complement C4 Miscellaneous Test Crossmatch 11/29/16 11/29/16 11/29/16 03:33 04:52 05:10 WBC RBC Hgb Hct MCV MCH MCHC RDW Plt Count Lymph % (Auto) [place] % (Auto) Lymph # [place] # Baso # Seg Neutrophils % Seg Neuts % (Manual) Lymphocytes % (Manual) Monocytes % (Manual) Eosinophils % (Manual) Basophils % (Manual) Nucleated RBC % Seg Neutrophils # Seg Neutrophils # Man Lymphocytes # (Manual) Monocytes # (Manual) Eosinophils # (Manual) Basophils # (Manual) PT INR Fibrinogen dRVVT Confirm Interp Factor V Activity POC ABG pH POC ABG pCO2 POC ABG pO2 ABG pO2 ABG HCO3 ABG Base Excess ABG Hemoglobin 7.0 L Oxyhemoglobin 94.9 L Sodium Potassium Chloride Carbon Dioxide BUN 73 H Creatinine 2.7 H Glucose POC Glucose 108 H Lactic Acid Calcium Phosphorus Magnesium Direct Bilirubin AST ALT Alkaline Phosphatase Lactate Dehydrogenase Troponin T C-Reactive Protein Total Protein Albumin Prealbumin Triglycerides Cholesterol LDL Cholesterol Direct HDL Cholesterol Urine pH Urine WBC (Auto) Urine Creatinine Urine Total Protein Fluid Total Protein Vancomycin Trough Rheumatoid Factor Complement C4 Miscellaneous Test Crossmatch 11/29/16 11/29/16 11/29/16 12:16 18:05 23:46 WBC RBC Hgb Hct MCV MCH MCHC RDW Plt Count Lymph % (Auto) [place] % (Auto) Lymph # [place] # Baso # Seg Neutrophils % Seg Neuts % (Manual) Lymphocytes % (Manual) Monocytes % (Manual) Eosinophils % (Manual) Basophils % (Manual) Nucleated RBC % Seg Neutrophils # Seg Neutrophils # Man Lymphocytes # (Manual) Monocytes # (Manual) Eosinophils # (Manual) Basophils # (Manual) PT INR Fibrinogen dRVVT Confirm Interp Factor V Activity POC ABG pH POC ABG pCO2 POC ABG pO2 ABG pO2 ABG HCO3 ABG Base Excess ABG Hemoglobin Oxyhemoglobin Sodium Potassium Chloride Carbon Dioxide BUN Creatinine Glucose POC Glucose 133 H 146 H 141 H Lactic Acid Calcium Phosphorus Magnesium Direct Bilirubin AST ALT Alkaline Phosphatase Lactate Dehydrogenase Troponin T C-Reactive Protein Total Protein Albumin Prealbumin Triglycerides Cholesterol LDL Cholesterol Direct HDL Cholesterol Urine pH Urine WBC (Auto) Urine Creatinine Urine Total Protein Fluid Total Protein Vancomycin Trough Rheumatoid Factor Complement C4 Miscellaneous Test Crossmatch 11/30/16 11/30/16 11/30/16 04:17 04:17 04:32 WBC 12.0 H RBC 2.80 L Hgb 7.8 L Hct 23.6 L MCV MCH MCHC RDW 16.6 H Plt Count Lymph % (Auto) [place] % (Auto) 11.3 H Lymph # [place] # 1.4 H Baso # Seg Neutrophils % Seg Neuts % (Manual) Lymphocytes % (Manual) Monocytes % (Manual) Eosinophils % (Manual) Basophils % (Manual) Nucleated RBC % Seg Neutrophils # 8.2 H Seg Neutrophils # Man Lymphocytes # (Manual) Monocytes # (Manual) Eosinophils # (Manual) Basophils # (Manual) PT INR Fibrinogen dRVVT Confirm Interp Factor V Activity POC ABG pH POC ABG pCO2 POC ABG pO2 ABG pO2 ABG HCO3 ABG Base Excess ABG Hemoglobin Oxyhemoglobin Sodium 169 H* D Potassium 5.1 H Chloride 121.5 H Carbon Dioxide BUN 34 H Creatinine 1.3 H D Glucose 133 H POC Glucose 131 H Lactic Acid Calcium 10.3 H Phosphorus Magnesium Direct Bilirubin AST ALT Alkaline Phosphatase Lactate Dehydrogenase Troponin T C-Reactive Protein Total Protein Albumin Prealbumin Triglycerides Cholesterol LDL Cholesterol Direct HDL Cholesterol Urine pH Urine WBC (Auto) Urine Creatinine Urine Total Protein Fluid Total Protein Vancomycin Trough Rheumatoid Factor Complement C4 Miscellaneous Test Crossmatch 11/30/16 11/30/16 11/30/16 05:45 11:10 17:26 WBC RBC Hgb Hct MCV MCH MCHC RDW Plt Count Lymph % (Auto) [place] % (Auto) Lymph # [place] # Baso # Seg Neutrophils % Seg Neuts % (Manual) Lymphocytes % (Manual) Monocytes % (Manual) Eosinophils % (Manual) Basophils % (Manual) Nucleated RBC % Seg Neutrophils # Seg Neutrophils # Man Lymphocytes # (Manual) Monocytes # (Manual) Eosinophils # (Manual) Basophils # (Manual) PT INR Fibrinogen dRVVT Confirm Interp Factor V Activity POC ABG pH POC ABG pCO2 POC ABG pO2 ABG pO2 ABG HCO3 ABG Base Excess ABG Hemoglobin Oxyhemoglobin Sodium Potassium Chloride Carbon Dioxide BUN 45 H Creatinine 1.6 H Glucose 131 H POC Glucose 146 H 134 H Lactic Acid Calcium Phosphorus Magnesium Direct Bilirubin AST ALT Alkaline Phosphatase Lactate Dehydrogenase Troponin T C-Reactive Protein Total Protein Albumin Prealbumin Triglycerides Cholesterol LDL Cholesterol Direct HDL Cholesterol Urine pH Urine WBC (Auto) Urine Creatinine Urine Total Protein Fluid Total Protein Vancomycin Trough Rheumatoid Factor Complement C4 Miscellaneous Test Crossmatch 11/30/16 12/01/16 12/01/16 23:35 00:06 03:35 WBC RBC Hgb Hct MCV MCH MCHC RDW Plt Count Lymph % (Auto) [place] % (Auto) Lymph # [place] # Baso # Seg Neutrophils % Seg Neuts % (Manual) Lymphocytes % (Manual) Monocytes % (Manual) Eosinophils % (Manual) Basophils % (Manual) Nucleated RBC % Seg Neutrophils # Seg Neutrophils # Man Lymphocytes # (Manual) Monocytes # (Manual) Eosinophils # (Manual) Basophils # (Manual) PT INR Fibrinogen dRVVT Confirm Interp Factor V Activity POC ABG pH POC ABG pCO2 POC ABG pO2 ABG pO2 ABG HCO3 ABG Base Excess ABG Hemoglobin 6.9 L Oxyhemoglobin Sodium Potassium Chloride Carbon Dioxide BUN 58 H Creatinine 1.8 H Glucose 146 H POC Glucose 151 H Lactic Acid Calcium Phosphorus Magnesium Direct Bilirubin AST ALT Alkaline Phosphatase Lactate Dehydrogenase Troponin T C-Reactive Protein Total Protein Albumin Prealbumin Triglycerides Cholesterol LDL Cholesterol Direct HDL Cholesterol Urine pH Urine WBC (Auto) Urine Creatinine Urine Total Protein Fluid Total Protein Vancomycin Trough Rheumatoid Factor Complement C4 Miscellaneous Test Crossmatch 12/01/16 12/01/16 12/01/16 03:35 05:47 11:52 WBC 12.3 H RBC 2.82 L Hgb 7.8 L Hct 23.7 L MCV MCH MCHC RDW 16.7 H Plt Count Lymph % (Auto) [place] % (Auto) 9.8 H Lymph # [place] # 1.2 H Baso # Seg Neutrophils % Seg Neuts % (Manual) Lymphocytes % (Manual) Monocytes % (Manual) Eosinophils % (Manual) Basophils % (Manual) Nucleated RBC % Seg Neutrophils # 8.4 H Seg Neutrophils # Man Lymphocytes # (Manual) Monocytes # (Manual) Eosinophils # (Manual) Basophils # (Manual) PT INR Fibrinogen dRVVT Confirm Interp Factor V Activity POC ABG pH POC ABG pCO2 POC ABG pO2 ABG pO2 ABG HCO3 ABG Base Excess ABG Hemoglobin Oxyhemoglobin Sodium Potassium Chloride Carbon Dioxide BUN Creatinine Glucose POC Glucose 152 H 152 H Lactic Acid Calcium Phosphorus Magnesium Direct Bilirubin AST ALT Alkaline Phosphatase Lactate Dehydrogenase Troponin T C-Reactive Protein Total Protein Albumin Prealbumin Triglycerides Cholesterol LDL Cholesterol Direct HDL Cholesterol Urine pH Urine WBC (Auto) Urine Creatinine Urine Total Protein Fluid Total Protein Vancomycin Trough Rheumatoid Factor Complement C4 Miscellaneous Test Crossmatch 12/01/16 12/01/16 12/02/16 17:40 23:41 05:00 WBC RBC Hgb Hct MCV MCH MCHC RDW Plt Count Lymph % (Auto) [place] % (Auto) Lymph # [place] # Baso # Seg Neutrophils % Seg Neuts % (Manual) Lymphocytes % (Manual) Monocytes % (Manual) Eosinophils % (Manual) Basophils % (Manual) Nucleated RBC % Seg Neutrophils # Seg Neutrophils # Man Lymphocytes # (Manual) Monocytes # (Manual) Eosinophils # (Manual) Basophils # (Manual) PT INR Fibrinogen dRVVT Confirm Interp Factor V Activity POC ABG pH POC ABG pCO2 POC ABG pO2 ABG pO2 ABG HCO3 ABG Base Excess ABG Hemoglobin Oxyhemoglobin Sodium Potassium Chloride Carbon Dioxide BUN 45 H Creatinine Glucose 115 H POC Glucose 140 H 144 H Lactic Acid Calcium Phosphorus Magnesium Direct Bilirubin AST ALT Alkaline Phosphatase Lactate Dehydrogenase Troponin T C-Reactive Protein Total Protein Albumin Prealbumin Triglycerides Cholesterol LDL Cholesterol Direct HDL Cholesterol Urine pH Urine WBC (Auto) Urine Creatinine Urine Total Protein Fluid Total Protein Vancomycin Trough Rheumatoid Factor Complement C4 Miscellaneous Test Crossmatch 12/02/16 12/02/16 12/02/16 05:31 11:20 17:38 WBC RBC Hgb Hct MCV MCH MCHC RDW Plt Count Lymph % (Auto) [place] % (Auto) Lymph # [place] # Baso # Seg Neutrophils % Seg Neuts % (Manual) Lymphocytes % (Manual) Monocytes % (Manual) Eosinophils % (Manual) Basophils % (Manual) Nucleated RBC % Seg Neutrophils # Seg Neutrophils # Man Lymphocytes # (Manual) Monocytes # (Manual) Eosinophils # (Manual) Basophils # (Manual) PT INR Fibrinogen dRVVT Confirm Interp Factor V Activity POC ABG pH POC ABG pCO2 POC ABG pO2 ABG pO2 ABG HCO3 ABG Base Excess ABG Hemoglobin Oxyhemoglobin Sodium Potassium Chloride Carbon Dioxide BUN Creatinine Glucose POC Glucose 136 H 177 H 139 H Lactic Acid Calcium Phosphorus Magnesium Direct Bilirubin AST ALT Alkaline Phosphatase Lactate Dehydrogenase Troponin T C-Reactive Protein Total Protein Albumin Prealbumin Triglycerides Cholesterol LDL Cholesterol Direct HDL Cholesterol Urine pH Urine WBC (Auto) Urine Creatinine Urine Total Protein Fluid Total Protein Vancomycin Trough Rheumatoid Factor Complement C4 Miscellaneous Test Crossmatch 12/02/16 12/03/16 12/03/16 23:43 04:00 04:00 WBC 20.4 H RBC 2.74 L Hgb 7.4 L Hct 23.6 L MCV MCH 27 L MCHC RDW 17.1 H Plt Count Lymph % (Auto) [place] % (Auto) Lymph # [place] # Baso # Seg Neutrophils % Seg Neuts % (Manual) 31.0 L Lymphocytes % (Manual) Monocytes % (Manual) Eosinophils % (Manual) Basophils % (Manual) Nucleated RBC % Seg Neutrophils # Seg Neutrophils # Man Lymphocytes # (Manual) Monocytes # (Manual) Eosinophils # (Manual) Basophils # (Manual) PT INR Fibrinogen dRVVT Confirm Interp Factor V Activity POC ABG pH POC ABG pCO2 POC ABG pO2 ABG pO2 ABG HCO3 ABG Base Excess ABG Hemoglobin Oxyhemoglobin Sodium Potassium Chloride Carbon Dioxide BUN 61 H Creatinine 1.6 H Glucose 119 H POC Glucose 158 H Lactic Acid Calcium Phosphorus Magnesium Direct Bilirubin AST ALT Alkaline Phosphatase Lactate Dehydrogenase Troponin T C-Reactive Protein Total Protein Albumin Prealbumin Triglycerides Cholesterol LDL Cholesterol Direct HDL Cholesterol Urine pH Urine WBC (Auto) Urine Creatinine Urine Total Protein Fluid Total Protein Vancomycin Trough Rheumatoid Factor Complement C4 Miscellaneous Test Crossmatch 12/03/16 12/03/16 12/03/16 05:02 12:11 18:16 WBC RBC Hgb Hct MCV MCH MCHC RDW Plt Count Lymph % (Auto) [place] % (Auto) Lymph # [place] # Baso # Seg Neutrophils % Seg Neuts % (Manual) Lymphocytes % (Manual) Monocytes % (Manual) Eosinophils % (Manual) Basophils % (Manual) Nucleated RBC % Seg Neutrophils # Seg Neutrophils # Man Lymphocytes # (Manual) Monocytes # (Manual) Eosinophils # (Manual) Basophils # (Manual) PT INR Fibrinogen dRVVT Confirm Interp Factor V Activity POC ABG pH POC ABG pCO2 POC ABG pO2 ABG pO2 ABG HCO3 ABG Base Excess ABG Hemoglobin Oxyhemoglobin Sodium Potassium Chloride Carbon Dioxide BUN Creatinine Glucose POC Glucose 146 H 157 H 124 H Lactic Acid Calcium Phosphorus Magnesium Direct Bilirubin AST ALT Alkaline Phosphatase Lactate Dehydrogenase Troponin T C-Reactive Protein Total Protein Albumin Prealbumin Triglycerides Cholesterol LDL Cholesterol Direct HDL Cholesterol Urine pH Urine WBC (Auto) Urine Creatinine Urine Total Protein Fluid Total Protein Vancomycin Trough Rheumatoid Factor Complement C4 Miscellaneous Test Crossmatch 12/03/16 12/04/16 12/04/16 23:41 04:00 04:45 WBC RBC Hgb Hct MCV MCH MCHC RDW Plt Count Lymph % (Auto) [place] % (Auto) Lymph # [place] # Baso # Seg Neutrophils % Seg Neuts % (Manual) Lymphocytes % (Manual) Monocytes % (Manual) Eosinophils % (Manual) Basophils % (Manual) Nucleated RBC % Seg Neutrophils # Seg Neutrophils # Man Lymphocytes # (Manual) Monocytes # (Manual) Eosinophils # (Manual) Basophils # (Manual) PT INR Fibrinogen dRVVT Confirm Interp Factor V Activity POC ABG pH POC ABG pCO2 POC ABG pO2 ABG pO2 ABG HCO3 ABG Base Excess ABG Hemoglobin Oxyhemoglobin Sodium Potassium Chloride Carbon Dioxide BUN 76 H Creatinine 1.6 H Glucose POC Glucose 130 H 136 H Lactic Acid Calcium Phosphorus Magnesium Direct Bilirubin AST ALT Alkaline Phosphatase 155 H Lactate Dehydrogenase Troponin T C-Reactive Protein Total Protein 5.5 L Albumin 1.5 L Prealbumin Triglycerides Cholesterol LDL Cholesterol Direct HDL Cholesterol Urine pH Urine WBC (Auto) Urine Creatinine Urine Total Protein Fluid Total Protein Vancomycin Trough Rheumatoid Factor Complement C4 Miscellaneous Test Crossmatch 12/04/16 12/04/16 12/05/16 12:08 17:23 00:10 WBC RBC Hgb Hct MCV MCH MCHC RDW Plt Count Lymph % (Auto) [place] % (Auto) Lymph # [place] # Baso # Seg Neutrophils % Seg Neuts % (Manual) Lymphocytes % (Manual) Monocytes % (Manual) Eosinophils % (Manual) Basophils % (Manual) Nucleated RBC % Seg Neutrophils # Seg Neutrophils # Man Lymphocytes # (Manual) Monocytes # (Manual) Eosinophils # (Manual) Basophils # (Manual) PT INR Fibrinogen dRVVT Confirm Interp Factor V Activity POC ABG pH POC ABG pCO2 POC ABG pO2 ABG pO2 ABG HCO3 ABG Base Excess ABG Hemoglobin Oxyhemoglobin Sodium Potassium Chloride Carbon Dioxide BUN Creatinine Glucose POC Glucose 114 H 129 H 124 H Lactic Acid Calcium Phosphorus Magnesium Direct Bilirubin AST ALT Alkaline Phosphatase Lactate Dehydrogenase Troponin T C-Reactive Protein Total Protein Albumin Prealbumin Triglycerides Cholesterol LDL Cholesterol Direct HDL Cholesterol Urine pH Urine WBC (Auto) Urine Creatinine Urine Total Protein Fluid Total Protein Vancomycin Trough Rheumatoid Factor Complement C4 Miscellaneous Test Crossmatch 12/05/16 12/05/16 12/05/16 05:00 05:00 05:18 WBC RBC Hgb Hct MCV MCH MCHC RDW Plt Count Lymph % (Auto) [place] % (Auto) Lymph # [place] # Baso # Seg Neutrophils % Seg Neuts % (Manual) Lymphocytes % (Manual) Monocytes % (Manual) Eosinophils % (Manual) Basophils % (Manual) Nucleated RBC % Seg Neutrophils # Seg Neutrophils # Man Lymphocytes # (Manual) Monocytes # (Manual) Eosinophils # (Manual) Basophils # (Manual) PT INR Fibrinogen dRVVT Confirm Interp Factor V Activity POC ABG pH POC ABG pCO2 POC ABG pO2 ABG pO2 ABG HCO3 ABG Base Excess ABG Hemoglobin Oxyhemoglobin Sodium Potassium Chloride Carbon Dioxide 21 L BUN 85 H Creatinine 1.9 H Glucose 131 H POC Glucose 154 H Lactic Acid Calcium Phosphorus Magnesium Direct Bilirubin AST ALT Alkaline Phosphatase Lactate Dehydrogenase Troponin T C-Reactive Protein 19.30 H Total Protein Albumin Prealbumin Triglycerides Cholesterol LDL Cholesterol Direct HDL Cholesterol Urine pH Urine WBC (Auto) Urine Creatinine Urine Total Protein Fluid Total Protein Vancomycin Trough Rheumatoid Factor Complement C4 Miscellaneous Test Crossmatch 12/05/16 12/05/16 12/05/16 11:43 17:46 23:25 WBC RBC Hgb Hct MCV MCH MCHC RDW Plt Count Lymph % (Auto) [place] % (Auto) Lymph # [place] # Baso # Seg Neutrophils % Seg Neuts % (Manual) Lymphocytes % (Manual) Monocytes % (Manual) Eosinophils % (Manual) Basophils % (Manual) Nucleated RBC % Seg Neutrophils # Seg Neutrophils # Man Lymphocytes # (Manual) Monocytes # (Manual) Eosinophils # (Manual) Basophils # (Manual) PT INR Fibrinogen dRVVT Confirm Interp Factor V Activity POC ABG pH POC ABG pCO2 POC ABG pO2 ABG pO2 ABG HCO3 ABG Base Excess ABG Hemoglobin Oxyhemoglobin Sodium Potassium Chloride Carbon Dioxide BUN Creatinine Glucose POC Glucose 117 H 113 H 111 H Lactic Acid Calcium Phosphorus Magnesium Direct Bilirubin AST ALT Alkaline Phosphatase Lactate Dehydrogenase Troponin T C-Reactive Protein Total Protein Albumin Prealbumin Triglycerides Cholesterol LDL Cholesterol Direct HDL Cholesterol Urine pH Urine WBC (Auto) Urine Creatinine Urine Total Protein Fluid Total Protein Vancomycin Trough Rheumatoid Factor Complement C4 Miscellaneous Test Crossmatch 12/05/16 12/06/16 12/06/16 Unknown 04:58 06:00 WBC RBC Hgb Hct MCV MCH MCHC RDW Plt Count Lymph % (Auto) [place] % (Auto) Lymph # [place] # Baso # Seg Neutrophils % Seg Neuts % (Manual) Lymphocytes % (Manual) Monocytes % (Manual) Eosinophils % (Manual) Basophils % (Manual) Nucleated RBC % Seg Neutrophils # Seg Neutrophils # Man Lymphocytes # (Manual) Monocytes # (Manual) Eosinophils # (Manual) Basophils # (Manual) PT INR Fibrinogen dRVVT Confirm Interp Factor V Activity POC ABG pH POC ABG pCO2 POC ABG pO2 ABG pO2 75.2 L ABG HCO3 ABG Base Excess -3.4 L ABG Hemoglobin 7.4 L Oxyhemoglobin 94.5 L Sodium Potassium Chloride Carbon Dioxide 20 L BUN 99 H Creatinine 2.1 H Glucose 126 H POC Glucose 145 H Lactic Acid Calcium Phosphorus 4.80 H Magnesium Direct Bilirubin AST ALT Alkaline Phosphatase Lactate Dehydrogenase Troponin T C-Reactive Protein Total Protein Albumin Prealbumin Triglycerides Cholesterol LDL Cholesterol Direct HDL Cholesterol Urine pH Urine WBC (Auto) Urine Creatinine Urine Total Protein Fluid Total Protein Vancomycin Trough Rheumatoid Factor Complement C4 Miscellaneous Test Crossmatch 12/06/16 12/06/16 12/06/16 06:46 11:54 17:55 WBC RBC Hgb 8.3 L Hct 26.4 L MCV MCH MCHC RDW Plt Count Lymph % (Auto) [place] % (Auto) Lymph # [place] # Baso # Seg Neutrophils % Seg Neuts % (Manual) Lymphocytes % (Manual) Monocytes % (Manual) Eosinophils % (Manual) Basophils % (Manual) Nucleated RBC % Seg Neutrophils # Seg Neutrophils # Man Lymphocytes # (Manual) Monocytes # (Manual) Eosinophils # (Manual) Basophils # (Manual) PT INR Fibrinogen dRVVT Confirm Interp Factor V Activity POC ABG pH POC ABG pCO2 POC ABG pO2 ABG pO2 ABG HCO3 ABG Base Excess ABG Hemoglobin Oxyhemoglobin Sodium Potassium Chloride Carbon Dioxide BUN Creatinine Glucose POC Glucose 126 H 157 H Lactic Acid Calcium Phosphorus Magnesium Direct Bilirubin AST ALT Alkaline Phosphatase Lactate Dehydrogenase Troponin T C-Reactive Protein Total Protein Albumin Prealbumin Triglycerides Cholesterol LDL Cholesterol Direct HDL Cholesterol Urine pH Urine WBC (Auto) Urine Creatinine Urine Total Protein Fluid Total Protein Vancomycin Trough Rheumatoid Factor Complement C4 Miscellaneous Test Crossmatch 12/06/16 12/07/16 12/07/16 23:59 05:34 06:30 WBC RBC Hgb Hct MCV MCH MCHC RDW Plt Count Lymph % (Auto) [place] % (Auto) Lymph # [place] # Baso # Seg Neutrophils % Seg Neuts % (Manual) Lymphocytes % (Manual) Monocytes % (Manual) Eosinophils % (Manual) Basophils % (Manual) Nucleated RBC % Seg Neutrophils # Seg Neutrophils # Man Lymphocytes # (Manual) Monocytes # (Manual) Eosinophils # (Manual) Basophils # (Manual) PT INR Fibrinogen dRVVT Confirm Interp Factor V Activity POC ABG pH POC ABG pCO2 POC ABG pO2 ABG pO2 ABG HCO3 ABG Base Excess ABG Hemoglobin Oxyhemoglobin Sodium Potassium Chloride Carbon Dioxide BUN 67 H Creatinine 1.4 H Glucose 126 H POC Glucose 129 H 129 H Lactic Acid Calcium Phosphorus Magnesium Direct Bilirubin AST ALT Alkaline Phosphatase Lactate Dehydrogenase Troponin T C-Reactive Protein Total Protein Albumin Prealbumin Triglycerides Cholesterol LDL Cholesterol Direct HDL Cholesterol Urine pH Urine WBC (Auto) Urine Creatinine Urine Total Protein Fluid Total Protein Vancomycin Trough Rheumatoid Factor Complement C4 Miscellaneous Test Crossmatch 12/07/16 12/07/16 12/07/16 06:30 08:00 09:45 WBC 18.8 H RBC 2.52 L Hgb 6.9 L 6.8 L Hct 21.2 L 21.1 L MCV MCH 27 L MCHC RDW 18.0 H Plt Count Lymph % (Auto) [place] % (Auto) 9.9 H Lymph # [place] # 1.9 H Baso # Seg Neutrophils % 71.8 H Seg Neuts % (Manual) Lymphocytes % (Manual) Monocytes % (Manual) Eosinophils % (Manual) Basophils % (Manual) Nucleated RBC % Seg Neutrophils # 13.5 H Seg Neutrophils # Man Lymphocytes # (Manual) Monocytes # (Manual) Eosinophils # (Manual) Basophils # (Manual) PT INR Fibrinogen dRVVT Confirm Interp Factor V Activity POC ABG pH POC ABG pCO2 POC ABG pO2 ABG pO2 ABG HCO3 ABG Base Excess ABG Hemoglobin Oxyhemoglobin Sodium Potassium Chloride Carbon Dioxide BUN Creatinine Glucose POC Glucose Lactic Acid Calcium Phosphorus Magnesium Direct Bilirubin AST ALT Alkaline Phosphatase Lactate Dehydrogenase Troponin T C-Reactive Protein Total Protein Albumin Prealbumin Triglycerides Cholesterol LDL Cholesterol Direct HDL Cholesterol Urine pH Urine WBC (Auto) Urine Creatinine Urine Total Protein Fluid Total Protein Vancomycin Trough Rheumatoid Factor Complement C4 Miscellaneous Test Crossmatch See Detail 12/07/16 12/07/1612/07/17 11:44 18:19 23:59 WBC RBC Hgb Hct MCV MCH MCHC RDW Plt Count Lymph % (Auto) [place] % (Auto) Lymph # [place] # Baso # Seg Neutrophils % Seg Neuts % (Manual) Lymphocytes % (Manual) Monocytes % (Manual) Eosinophils % (Manual) Basophils % (Manual) Nucleated RBC % Seg Neutrophils # Seg Neutrophils # Man Lymphocytes # (Manual) Monocytes # (Manual) Eosinophils # (Manual) Basophils # (Manual) PT INR Fibrinogen dRVVT Confirm Interp Factor V Activity POC ABG pH POC ABG pCO2 POC ABG pO2 ABG pO2 ABG HCO3 ABG Base Excess ABG Hemoglobin Oxyhemoglobin Sodium Potassium Chloride Carbon Dioxide BUN Creatinine Glucose POC Glucose 137 H 138 H 133 H Lactic Acid Calcium Phosphorus Magnesium Direct Bilirubin AST ALT Alkaline Phosphatase Lactate Dehydrogenase Troponin T C-Reactive Protein Total Protein Albumin Prealbumin Triglycerides Cholesterol LDL Cholesterol Direct HDL Cholesterol Urine pH Urine WBC (Auto) Urine Creatinine Urine Total Protein Fluid Total Protein Vancomycin Trough Rheumatoid Factor Complement C4 Miscellaneous Test Crossmatch 12/08/16 12/08/16 12/08/16 05:25 05:30 05:30 WBC 23.8 H RBC 2.88 L Hgb 8.1 L Hct 24.3 L MCV MCH MCHC RDW 16.7 H Plt Count Lymph % (Auto) [place] % (Auto) Lymph # [place] # Baso # Seg Neutrophils % Seg Neuts % (Manual) 76.0 H Lymphocytes % (Manual) 9.0 L Monocytes % (Manual) 9.0 H Eosinophils % (Manual) Basophils % (Manual) Nucleated RBC % Seg Neutrophils # Seg Neutrophils # Man 18.1 H Lymphocytes # (Manual) Monocytes # (Manual) 2.1 H Eosinophils # (Manual) Basophils # (Manual) PT INR Fibrinogen dRVVT Confirm Interp Factor V Activity POC ABG pH POC ABG pCO2 POC ABG pO2 ABG pO2 ABG HCO3 ABG Base Excess ABG Hemoglobin Oxyhemoglobin Sodium Potassium Chloride Carbon Dioxide 21 L BUN 76 H Creatinine 1.6 H Glucose 133 H POC Glucose 177 H Lactic Acid Calcium Phosphorus Magnesium Direct Bilirubin AST ALT Alkaline Phosphatase Lactate Dehydrogenase Troponin T C-Reactive Protein Total Protein Albumin Prealbumin Triglycerides Cholesterol LDL Cholesterol Direct HDL Cholesterol Urine pH Urine WBC (Auto) Urine Creatinine Urine Total Protein Fluid Total Protein Vancomycin Trough Rheumatoid Factor Complement C4 Miscellaneous Test Crossmatch 12/08/16 12/08/16 12/09/16 11:45 18:00 00:00 WBC RBC Hgb Hct MCV MCH MCHC RDW Plt Count Lymph % (Auto) [place] % (Auto) Lymph # [place] # Baso # Seg Neutrophils % Seg Neuts % (Manual) Lymphocytes % (Manual) Monocytes % (Manual) Eosinophils % (Manual) Basophils % (Manual) Nucleated RBC % Seg Neutrophils # Seg Neutrophils # Man Lymphocytes # (Manual) Monocytes # (Manual) Eosinophils # (Manual) Basophils # (Manual) PT INR Fibrinogen dRVVT Confirm Interp Factor V Activity POC ABG pH POC ABG pCO2 POC ABG pO2 ABG pO2 ABG HCO3 ABG Base Excess ABG Hemoglobin Oxyhemoglobin Sodium Potassium Chloride Carbon Dioxide BUN Creatinine Glucose POC Glucose 163 H 123 H 137 H Lactic Acid Calcium Phosphorus Magnesium Direct Bilirubin AST ALT Alkaline Phosphatase Lactate Dehydrogenase Troponin T C-Reactive Protein Total Protein Albumin Prealbumin Triglycerides Cholesterol LDL Cholesterol Direct HDL Cholesterol Urine pH Urine WBC (Auto) Urine Creatinine Urine Total Protein Fluid Total Protein Vancomycin Trough Rheumatoid Factor Complement C4 Miscellaneous Test Crossmatch 12/09/16 12/09/16 12/09/16 05:34 06:00 06:00 WBC 15.5 H RBC 2.87 L Hgb 8.0 L Hct 24.2 L MCV MCH MCHC RDW 17.2 H Plt Count Lymph % (Auto) [place] % (Auto) 11.6 H Lymph # [place] # 1.8 H Baso # Seg Neutrophils % 70.8 H Seg Neuts % (Manual) Lymphocytes % (Manual) Monocytes % (Manual) Eosinophils % (Manual) Basophils % (Manual) Nucleated RBC % Seg Neutrophils # 11.0 H Seg Neutrophils # Man Lymphocytes # (Manual) Monocytes # (Manual) Eosinophils # (Manual) Basophils # (Manual) PT INR Fibrinogen dRVVT Confirm Interp Factor V Activity POC ABG pH POC ABG pCO2 POC ABG pO2 ABG pO2 ABG HCO3 ABG Base Excess ABG Hemoglobin Oxyhemoglobin Sodium Potassium Chloride Carbon Dioxide BUN 51 H Creatinine Glucose 117 H POC Glucose 136 H Lactic Acid Calcium Phosphorus Magnesium Direct Bilirubin AST ALT Alkaline Phosphatase Lactate Dehydrogenase Troponin T C-Reactive Protein Total Protein Albumin Prealbumin Triglycerides Cholesterol LDL Cholesterol Direct HDL Cholesterol Urine pH Urine WBC (Auto) Urine Creatinine Urine Total Protein Fluid Total Protein Vancomycin Trough Rheumatoid Factor Complement C4 Miscellaneous Test Crossmatch 12/09/16 12/09/16 12/09/16 12:29 17:52 23:10 WBC RBC Hgb Hct MCV MCH MCHC RDW Plt Count Lymph % (Auto) [place] % (Auto) Lymph # [place] # Baso # Seg Neutrophils % Seg Neuts % (Manual) Lymphocytes % (Manual) Monocytes % (Manual) Eosinophils % (Manual) Basophils % (Manual) Nucleated RBC % Seg Neutrophils # Seg Neutrophils # Man Lymphocytes # (Manual) Monocytes # (Manual) Eosinophils # (Manual) Basophils # (Manual) PT INR Fibrinogen dRVVT Confirm Interp Factor V Activity POC ABG pH POC ABG pCO2 POC ABG pO2 ABG pO2 ABG HCO3 ABG Base Excess ABG Hemoglobin Oxyhemoglobin Sodium Potassium Chloride Carbon Dioxide BUN Creatinine Glucose POC Glucose 139 H 140 H 129 H Lactic Acid Calcium Phosphorus Magnesium Direct Bilirubin AST ALT Alkaline Phosphatase Lactate Dehydrogenase Troponin T C-Reactive Protein Total Protein Albumin Prealbumin Triglycerides Cholesterol LDL Cholesterol Direct HDL Cholesterol Urine pH Urine WBC (Auto) Urine Creatinine Urine Total Protein Fluid Total Protein Vancomycin Trough Rheumatoid Factor Complement C4 Miscellaneous Test Crossmatch 12/10/16 12/10/16 12/10/16 05:00 05:00 06:54 WBC 15.7 H RBC 2.87 L Hgb 8.2 L Hct 24.4 L MCV MCH MCHC RDW 17.2 H Plt Count Lymph % (Auto) [place] % (Auto) 8.3 H Lymph # [place] # 1.3 H Baso # Seg Neutrophils % 72.8 H Seg Neuts % (Manual) Lymphocytes % (Manual) Monocytes % (Manual) Eosinophils % (Manual) Basophils % (Manual) Nucleated RBC % Seg Neutrophils # 11.4 H Seg Neutrophils # Man Lymphocytes # (Manual) Monocytes # (Manual) Eosinophils # (Manual) Basophils # (Manual) PT INR Fibrinogen dRVVT Confirm Interp Factor V Activity POC ABG pH POC ABG pCO2 POC ABG pO2 ABG pO2 ABG HCO3 ABG Base Excess ABG Hemoglobin Oxyhemoglobin Sodium Potassium Chloride Carbon Dioxide BUN 64 H Creatinine 1.4 H Glucose 134 H POC Glucose 154 H Lactic Acid Calcium Phosphorus Magnesium Direct Bilirubin AST ALT Alkaline Phosphatase Lactate Dehydrogenase Troponin T C-Reactive Protein Total Protein Albumin Prealbumin Triglycerides Cholesterol LDL Cholesterol Direct HDL Cholesterol Urine pH Urine WBC (Auto) Urine Creatinine Urine Total Protein Fluid Total Protein Vancomycin Trough Rheumatoid Factor Complement C4 Miscellaneous Test Crossmatch 12/10/16 12/10/16 12/10/16 11:58 17:29 23:52 WBC RBC Hgb Hct MCV MCH MCHC RDW Plt Count Lymph % (Auto) [place] % (Auto) Lymph # [place] # Baso # Seg Neutrophils % Seg Neuts % (Manual) Lymphocytes % (Manual) Monocytes % (Manual) Eosinophils % (Manual) Basophils % (Manual) Nucleated RBC % Seg Neutrophils # Seg Neutrophils # Man Lymphocytes # (Manual) Monocytes # (Manual) Eosinophils # (Manual) Basophils # (Manual) PT INR Fibrinogen dRVVT Confirm Interp Factor V Activity POC ABG pH POC ABG pCO2 POC ABG pO2 ABG pO2 ABG HCO3 ABG Base Excess ABG Hemoglobin Oxyhemoglobin Sodium Potassium Chloride Carbon Dioxide BUN Creatinine Glucose POC Glucose 144 H 163 H 125 H Lactic Acid Calcium Phosphorus Magnesium Direct Bilirubin AST ALT Alkaline Phosphatase Lactate Dehydrogenase Troponin T C-Reactive Protein Total Protein Albumin Prealbumin Triglycerides Cholesterol LDL Cholesterol Direct HDL Cholesterol Urine pH Urine WBC (Auto) Urine Creatinine Urine Total Protein Fluid Total Protein Vancomycin Trough Rheumatoid Factor Complement C4 Miscellaneous Test Crossmatch 12/11/16 12/11/16 12/11/16 05:38 06:30 06:30 WBC 14.4 H RBC 2.76 L Hgb 7.7 L Hct 23.4 L MCV MCH MCHC RDW 17.2 H Plt Count Lymph % (Auto) [place] % (Auto) 8.8 H Lymph # [place] # 1.3 H Baso # Seg Neutrophils % 72.5 H Seg Neuts % (Manual) Lymphocytes % (Manual) Monocytes % (Manual) Eosinophils % (Manual) Basophils % (Manual) Nucleated RBC % Seg Neutrophils # 10.5 H Seg Neutrophils # Man Lymphocytes # (Manual) Monocytes # (Manual) Eosinophils # (Manual) Basophils # (Manual) PT INR Fibrinogen dRVVT Confirm Interp Factor V Activity POC ABG pH POC ABG pCO2 POC ABG pO2 ABG pO2 ABG HCO3 ABG Base Excess ABG Hemoglobin Oxyhemoglobin Sodium Potassium Chloride Carbon Dioxide BUN 43 H Creatinine Glucose 124 H POC Glucose 141 H Lactic Acid Calcium 8.3 L Phosphorus Magnesium 1.60 L Direct Bilirubin AST ALT Alkaline Phosphatase Lactate Dehydrogenase Troponin T C-Reactive Protein Total Protein Albumin Prealbumin Triglycerides Cholesterol LDL Cholesterol Direct HDL Cholesterol Urine pH Urine WBC (Auto) Urine Creatinine Urine Total Protein Fluid Total Protein Vancomycin Trough Rheumatoid Factor Complement C4 Miscellaneous Test Crossmatch 12/11/16 12/11/16 12/11/16 11:15 17:59 23:48 WBC RBC Hgb Hct MCV MCH MCHC RDW Plt Count Lymph % (Auto) [place] % (Auto) Lymph # [place] # Baso # Seg Neutrophils % Seg Neuts % (Manual) Lymphocytes % (Manual) Monocytes % (Manual) Eosinophils % (Manual) Basophils % (Manual) Nucleated RBC % Seg Neutrophils # Seg Neutrophils # Man Lymphocytes # (Manual) Monocytes # (Manual) Eosinophils # (Manual) Basophils # (Manual) PT INR Fibrinogen dRVVT Confirm Interp Factor V Activity POC ABG pH POC ABG pCO2 POC ABG pO2 ABG pO2 ABG HCO3 ABG Base Excess ABG Hemoglobin Oxyhemoglobin Sodium Potassium Chloride Carbon Dioxide BUN Creatinine Glucose POC Glucose 188 H 106 H 119 H Lactic Acid Calcium Phosphorus Magnesium Direct Bilirubin AST ALT Alkaline Phosphatase Lactate Dehydrogenase Troponin T C-Reactive Protein Total Protein Albumin Prealbumin Triglycerides Cholesterol LDL Cholesterol Direct HDL Cholesterol Urine pH Urine WBC (Auto) Urine Creatinine Urine Total Protein Fluid Total Protein Vancomycin Trough Rheumatoid Factor Complement C4 Miscellaneous Test Crossmatch 12/12/16 12/12/16 12/12/16 05:00 06:01 12:20 WBC 16.7 H RBC 2.87 L Hgb 8.0 L Hct 24.2 L MCV MCH MCHC RDW 17.6 H Plt Count Lymph % (Auto) [place] % (Auto) Lymph # [place] # 1.2 H Baso # Seg Neutrophils % 75.3 H Seg Neuts % (Manual) Lymphocytes % (Manual) Monocytes % (Manual) Eosinophils % (Manual) Basophils % (Manual) Nucleated RBC % Seg Neutrophils # 12.6 H Seg Neutrophils # Man Lymphocytes # (Manual) Monocytes # (Manual) Eosinophils # (Manual) Basophils # (Manual) PT INR Fibrinogen dRVVT Confirm Interp Factor V Activity POC ABG pH POC ABG pCO2 POC ABG pO2 ABG pO2 ABG HCO3 ABG Base Excess ABG Hemoglobin Oxyhemoglobin Sodium Potassium Chloride Carbon Dioxide BUN Creatinine Glucose POC Glucose 134 H 149 H Lactic Acid Calcium Phosphorus Magnesium Direct Bilirubin AST ALT Alkaline Phosphatase Lactate Dehydrogenase Troponin T C-Reactive Protein Total Protein Albumin Prealbumin Triglycerides Cholesterol LDL Cholesterol Direct HDL Cholesterol Urine pH Urine WBC (Auto) Urine Creatinine Urine Total Protein Fluid Total Protein Vancomycin Trough Rheumatoid Factor Complement C4 Miscellaneous Test Crossmatch 12/12/16 12/12/16 12/12/16 17:38 23:01 Unknown WBC RBC Hgb Hct MCV MCH MCHC RDW Plt Count Lymph % (Auto) [place] % (Auto) Lymph # [place] # Baso # Seg Neutrophils % Seg Neuts % (Manual) Lymphocytes % (Manual) Monocytes % (Manual) Eosinophils % (Manual) Basophils % (Manual) Nucleated RBC % Seg Neutrophils # Seg Neutrophils # Man Lymphocytes # (Manual) Monocytes # (Manual) Eosinophils # (Manual) Basophils # (Manual) PT INR Fibrinogen dRVVT Confirm Interp Factor V Activity POC ABG pH POC ABG pCO2 POC ABG pO2 ABG pO2 ABG HCO3 ABG Base Excess ABG Hemoglobin Oxyhemoglobin Sodium Potassium Chloride Carbon Dioxide BUN 60 H Creatinine 1.3 H Glucose 126 H POC Glucose 127 H 144 H Lactic Acid Calcium Phosphorus Magnesium Direct Bilirubin AST ALT Alkaline Phosphatase Lactate Dehydrogenase Troponin T C-Reactive Protein Total Protein Albumin Prealbumin Triglycerides Cholesterol LDL Cholesterol Direct HDL Cholesterol Urine pH Urine WBC (Auto) Urine Creatinine Urine Total Protein Fluid Total Protein Vancomycin Trough Rheumatoid Factor Complement C4 Miscellaneous Test Crossmatch 12/13/16 12/13/16 12/13/16 04:00 04:00 05:19 WBC 18.7 H RBC 2.89 L Hgb 8.3 L Hct 24.6 L MCV MCH MCHC RDW 17.5 H Plt Count Lymph % (Auto) [place] % (Auto) Lymph # [place] # 1.3 H Baso # Seg Neutrophils % 71.5 H Seg Neuts % (Manual) Lymphocytes % (Manual) Monocytes % (Manual) Eosinophils % (Manual) Basophils % (Manual) Nucleated RBC % Seg Neutrophils # 13.4 H Seg Neutrophils # Man Lymphocytes # (Manual) Monocytes # (Manual) Eosinophils # (Manual) Basophils # (Manual) PT INR Fibrinogen dRVVT Confirm Interp Factor V Activity POC ABG pH POC ABG pCO2 POC ABG pO2 ABG pO2 ABG HCO3 ABG Base Excess ABG Hemoglobin Oxyhemoglobin Sodium Potassium Chloride Carbon Dioxide BUN 73 H Creatinine 1.5 H Glucose 141 H POC Glucose 171 H Lactic Acid Calcium Phosphorus Magnesium Direct Bilirubin AST ALT Alkaline Phosphatase Lactate Dehydrogenase Troponin T C-Reactive Protein Total Protein Albumin Prealbumin Triglycerides Cholesterol LDL Cholesterol Direct HDL Cholesterol Urine pH Urine WBC (Auto) Urine Creatinine Urine Total Protein Fluid Total Protein Vancomycin Trough Rheumatoid Factor Complement C4 Miscellaneous Test Crossmatch 12/13/16 12/13/16 12/14/16 12:28 16:48 00:01 WBC RBC Hgb Hct MCV MCH MCHC RDW Plt Count Lymph % (Auto) [place] % (Auto) Lymph # [place] # Baso # Seg Neutrophils % Seg Neuts % (Manual) Lymphocytes % (Manual) Monocytes % (Manual) Eosinophils % (Manual) Basophils % (Manual) Nucleated RBC % Seg Neutrophils # Seg Neutrophils # Man Lymphocytes # (Manual) Monocytes # (Manual) Eosinophils # (Manual) Basophils # (Manual) PT INR Fibrinogen dRVVT Confirm Interp Factor V Activity POC ABG pH POC ABG pCO2 POC ABG pO2 ABG pO2 ABG HCO3 ABG Base Excess ABG Hemoglobin Oxyhemoglobin Sodium Potassium Chloride Carbon Dioxide BUN Creatinine Glucose POC Glucose 206 H 173 H 139 H Lactic Acid Calcium Phosphorus Magnesium Direct Bilirubin AST ALT Alkaline Phosphatase Lactate Dehydrogenase Troponin T C-Reactive Protein Total Protein Albumin Prealbumin Triglycerides Cholesterol LDL Cholesterol Direct HDL Cholesterol Urine pH Urine WBC (Auto) Urine Creatinine Urine Total Protein Fluid Total Protein Vancomycin Trough Rheumatoid Factor Complement C4 Miscellaneous Test Crossmatch 12/14/16 12/14/16 12/14/16 05:16 06:10 11:17 WBC RBC Hgb Hct MCV MCH MCHC RDW Plt Count Lymph % (Auto) [place] % (Auto) Lymph # [place] # Baso # Seg Neutrophils % Seg Neuts % (Manual) Lymphocytes % (Manual) Monocytes % (Manual) Eosinophils % (Manual) Basophils % (Manual) Nucleated RBC % Seg Neutrophils # Seg Neutrophils # Man Lymphocytes # (Manual) Monocytes # (Manual) Eosinophils # (Manual) Basophils # (Manual) PT INR Fibrinogen dRVVT Confirm Interp Factor V Activity POC ABG pH POC ABG pCO2 POC ABG pO2 ABG pO2 ABG HCO3 ABG Base Excess ABG Hemoglobin Oxyhemoglobin Sodium Potassium Chloride Carbon Dioxide BUN 57 H Creatinine 1.4 H Glucose 135 H POC Glucose 158 H 137 H Lactic Acid Calcium Phosphorus Magnesium Direct Bilirubin AST ALT Alkaline Phosphatase Lactate Dehydrogenase Troponin T C-Reactive Protein Total Protein Albumin Prealbumin Triglycerides Cholesterol LDL Cholesterol Direct HDL Cholesterol Urine pH Urine WBC (Auto) Urine Creatinine Urine Total Protein Fluid Total Protein Vancomycin Trough Rheumatoid Factor Complement C4 Miscellaneous Test Crossmatch 12/14/16 12/14/16 12/15/16 17:52 23:27 04:00 WBC RBC Hgb Hct MCV MCH MCHC RDW Plt Count Lymph % (Auto) [place] % (Auto) Lymph # [place] # Baso # Seg Neutrophils % Seg Neuts % (Manual) Lymphocytes % (Manual) Monocytes % (Manual) Eosinophils % (Manual) Basophils % (Manual) Nucleated RBC % Seg Neutrophils # Seg Neutrophils # Man Lymphocytes # (Manual) Monocytes # (Manual) Eosinophils # (Manual) Basophils # (Manual) PT INR Fibrinogen dRVVT Confirm Interp Factor V Activity POC ABG pH POC ABG pCO2 POC ABG pO2 ABG pO2 ABG HCO3 ABG Base Excess ABG Hemoglobin Oxyhemoglobin Sodium Potassium Chloride 97.9 L Carbon Dioxide BUN 75 H Creatinine 1.6 H Glucose 122 H POC Glucose 149 H 163 H Lactic Acid Calcium Phosphorus 5.20 H Magnesium Direct Bilirubin AST ALT Alkaline Phosphatase Lactate Dehydrogenase Troponin T C-Reactive Protein Total Protein Albumin Prealbumin Triglycerides Cholesterol LDL Cholesterol Direct HDL Cholesterol Urine pH Urine WBC (Auto) Urine Creatinine Urine Total Protein Fluid Total Protein Vancomycin Trough Rheumatoid Factor Complement C4 Miscellaneous Test Crossmatch 12/15/16 12/15/16 12/15/16 05:50 11:24 17:01 WBC RBC Hgb Hct MCV MCH MCHC RDW Plt Count Lymph % (Auto) [place] % (Auto) Lymph # [place] # Baso # Seg Neutrophils % Seg Neuts % (Manual) Lymphocytes % (Manual) Monocytes % (Manual) Eosinophils % (Manual) Basophils % (Manual) Nucleated RBC % Seg Neutrophils # Seg Neutrophils # Man Lymphocytes # (Manual) Monocytes # (Manual) Eosinophils # (Manual) Basophils # (Manual) PT INR Fibrinogen dRVVT Confirm Interp Factor V Activity POC ABG pH POC ABG pCO2 POC ABG pO2 ABG pO2 ABG HCO3 ABG Base Excess ABG Hemoglobin Oxyhemoglobin Sodium Potassium Chloride Carbon Dioxide BUN Creatinine Glucose POC Glucose 150 H 146 H 167 H Lactic Acid Calcium Phosphorus Magnesium Direct Bilirubin AST ALT Alkaline Phosphatase Lactate Dehydrogenase Troponin T C-Reactive Protein Total Protein Albumin Prealbumin Triglycerides Cholesterol LDL Cholesterol Direct HDL Cholesterol Urine pH Urine WBC (Auto) Urine Creatinine Urine Total Protein Fluid Total Protein Vancomycin Trough Rheumatoid Factor Complement C4 Miscellaneous Test Crossmatch 12/15/16 12/16/16 12/16/16 23:34 05:25 11:24 WBC RBC Hgb Hct MCV MCH MCHC RDW Plt Count Lymph % (Auto) [place] % (Auto) Lymph # [place] # Baso # Seg Neutrophils % Seg Neuts % (Manual) Lymphocytes % (Manual) Monocytes % (Manual) Eosinophils % (Manual) Basophils % (Manual) Nucleated RBC % Seg Neutrophils # Seg Neutrophils # Man Lymphocytes # (Manual) Monocytes # (Manual) Eosinophils # (Manual) Basophils # (Manual) PT INR Fibrinogen dRVVT Confirm Interp Factor V Activity POC ABG pH POC ABG pCO2 POC ABG pO2 ABG pO2 ABG HCO3 ABG Base Excess ABG Hemoglobin Oxyhemoglobin Sodium Potassium Chloride Carbon Dioxide BUN Creatinine Glucose POC Glucose 127 H 139 H 165 H Lactic Acid Calcium Phosphorus Magnesium Direct Bilirubin AST ALT Alkaline Phosphatase Lactate Dehydrogenase Troponin T C-Reactive Protein Total Protein Albumin Prealbumin Triglycerides Cholesterol LDL Cholesterol Direct HDL Cholesterol Urine pH Urine WBC (Auto) Urine Creatinine Urine Total Protein Fluid Total Protein Vancomycin Trough Rheumatoid Factor Complement C4 Miscellaneous Test Crossmatch 12/16/16 12/16/16 12/16/16 15:30 16:25 17:31 WBC 17.8 H RBC 2.38 L Hgb 6.4 L Hct 20.3 L MCV MCH 27 L MCHC RDW 17.4 H Plt Count Lymph % (Auto) [place] % (Auto) Lymph # [place] # Baso # Seg Neutrophils % Seg Neuts % (Manual) Lymphocytes % (Manual) Monocytes % (Manual) 10.0 H Eosinophils % (Manual) Basophils % (Manual) Nucleated RBC % Seg Neutrophils # Seg Neutrophils # Man 8.5 H Lymphocytes # (Manual) Monocytes # (Manual) 1.8 H Eosinophils # (Manual) Basophils # (Manual) PT INR Fibrinogen dRVVT Confirm Interp Factor V Activity POC ABG pH POC ABG pCO2 POC ABG pO2 ABG pO2 ABG HCO3 ABG Base Excess ABG Hemoglobin Oxyhemoglobin Sodium Potassium Chloride Carbon Dioxide BUN Creatinine Glucose POC Glucose 176 H Lactic Acid Calcium Phosphorus Magnesium Direct Bilirubin AST ALT Alkaline Phosphatase Lactate Dehydrogenase Troponin T C-Reactive Protein Total Protein Albumin Prealbumin Triglycerides Cholesterol LDL Cholesterol Direct HDL Cholesterol Urine pH Urine WBC (Auto) Urine Creatinine Urine Total Protein Fluid Total Protein Vancomycin Trough Rheumatoid Factor Complement C4 Miscellaneous Test Crossmatch See Detail 12/17/16 12/17/16 12/17/16 00:14 04:00 05:00 WBC 20.0 H RBC 2.99 L Hgb 8.5 L Hct 25.7 L MCV MCH MCHC RDW 17.2 H Plt Count Lymph % (Auto) [place] % (Auto) Lymph # [place] # Baso # Seg Neutrophils % Seg Neuts % (Manual) Lymphocytes % (Manual) Monocytes % (Manual) Eosinophils % (Manual) Basophils % (Manual) Nucleated RBC % Seg Neutrophils # Seg Neutrophils # Man Lymphocytes # (Manual) Monocytes # (Manual) Eosinophils # (Manual) Basophils # (Manual) PT INR Fibrinogen dRVVT Confirm Interp Factor V Activity POC ABG pH POC ABG pCO2 POC ABG pO2 ABG pO2 ABG HCO3 ABG Base Excess ABG Hemoglobin Oxyhemoglobin Sodium Potassium Chloride 97.7 L Carbon Dioxide BUN 73 H Creatinine 1.7 H Glucose 136 H POC Glucose 148 H Lactic Acid Calcium Phosphorus 2.20 L Magnesium 2.70 H Direct Bilirubin AST ALT Alkaline Phosphatase Lactate Dehydrogenase Troponin T C-Reactive Protein Total Protein Albumin Prealbumin Triglycerides Cholesterol LDL Cholesterol Direct HDL Cholesterol Urine pH Urine WBC (Auto) Urine Creatinine Urine Total Protein Fluid Total Protein Vancomycin Trough Rheumatoid Factor Complement C4 Miscellaneous Test Crossmatch 12/17/16 12/17/16 12/17/16 05:39 12:50 16:32 WBC RBC Hgb Hct MCV MCH MCHC RDW Plt Count Lymph % (Auto) [place] % (Auto) Lymph # [place] # Baso # Seg Neutrophils % Seg Neuts % (Manual) Lymphocytes % (Manual) Monocytes % (Manual) Eosinophils % (Manual) Basophils % (Manual) Nucleated RBC % Seg Neutrophils # Seg Neutrophils # Man Lymphocytes # (Manual) Monocytes # (Manual) Eosinophils # (Manual) Basophils # (Manual) PT INR Fibrinogen dRVVT Confirm Interp Factor V Activity POC ABG pH POC ABG pCO2 POC ABG pO2 ABG pO2 ABG HCO3 ABG Base Excess ABG Hemoglobin Oxyhemoglobin Sodium Potassium Chloride Carbon Dioxide BUN Creatinine Glucose POC Glucose 162 H 146 H 169 H Lactic Acid Calcium Phosphorus Magnesium Direct Bilirubin AST ALT Alkaline Phosphatase Lactate Dehydrogenase Troponin T C-Reactive Protein Total Protein Albumin Prealbumin Triglycerides Cholesterol LDL Cholesterol Direct HDL Cholesterol Urine pH Urine WBC (Auto) Urine Creatinine Urine Total Protein Fluid Total Protein Vancomycin Trough Rheumatoid Factor Complement C4 Miscellaneous Test Crossmatch 12/17/16 12/18/16 12/18/16 23:57 05:00 05:32 WBC RBC Hgb Hct MCV MCH MCHC RDW Plt Count Lymph % (Auto) [place] % (Auto) Lymph # [place] # Baso # Seg Neutrophils % Seg Neuts % (Manual) Lymphocytes % (Manual) Monocytes % (Manual) Eosinophils % (Manual) Basophils % (Manual) Nucleated RBC % Seg Neutrophils # Seg Neutrophils # Man Lymphocytes # (Manual) Monocytes # (Manual) Eosinophils # (Manual) Basophils # (Manual) PT INR Fibrinogen dRVVT Confirm Interp Factor V Activity POC ABG pH POC ABG pCO2 POC ABG pO2 ABG pO2 ABG HCO3 ABG Base Excess ABG Hemoglobin Oxyhemoglobin Sodium Potassium Chloride 97.0 L Carbon Dioxide BUN 63 H Creatinine 1.4 H Glucose 174 H POC Glucose 145 H 201 H Lactic Acid Calcium Phosphorus 1.70 L D Magnesium Direct Bilirubin AST ALT Alkaline Phosphatase 257 H Lactate Dehydrogenase Troponin T C-Reactive Protein Total Protein 5.9 L Albumin 1.8 L Prealbumin Triglycerides Cholesterol LDL Cholesterol Direct HDL Cholesterol Urine pH Urine WBC (Auto) Urine Creatinine Urine Total Protein Fluid Total Protein Vancomycin Trough Rheumatoid Factor Complement C4 Miscellaneous Test Crossmatch 12/18/16 12/18/16 12/18/16 11:43 16:52 23:52 WBC RBC Hgb Hct MCV MCH MCHC RDW Plt Count Lymph % (Auto) [place] % (Auto) Lymph # [place] # Baso # Seg Neutrophils % Seg Neuts % (Manual) Lymphocytes % (Manual) Monocytes % (Manual) Eosinophils % (Manual) Basophils % (Manual) Nucleated RBC % Seg Neutrophils # Seg Neutrophils # Man Lymphocytes # (Manual) Monocytes # (Manual) Eosinophils # (Manual) Basophils # (Manual) PT INR Fibrinogen dRVVT Confirm Interp Factor V Activity POC ABG pH POC ABG pCO2 POC ABG pO2 ABG pO2 ABG HCO3 ABG Base Excess ABG Hemoglobin Oxyhemoglobin Sodium Potassium Chloride Carbon Dioxide BUN Creatinine Glucose POC Glucose 177 H 110 H 162 H Lactic Acid Calcium Phosphorus Magnesium Direct Bilirubin AST ALT Alkaline Phosphatase Lactate Dehydrogenase Troponin T C-Reactive Protein Total Protein Albumin Prealbumin Triglycerides Cholesterol LDL Cholesterol Direct HDL Cholesterol Urine pH Urine WBC (Auto) Urine Creatinine Urine Total Protein Fluid Total Protein Vancomycin Trough Rheumatoid Factor Complement C4 Miscellaneous Test Crossmatch 12/19/16 12/19/16 12/19/16 05:02 05:24 09:30 WBC 20.1 H RBC 2.73 L Hgb 7.6 L Hct 23.6 L MCV MCH MCHC RDW 17.6 H Plt Count Lymph % (Auto) [place] % (Auto) Lymph # [place] # Baso # Seg Neutrophils % Seg Neuts % (Manual) Lymphocytes % (Manual) 13.0 L Monocytes % (Manual) Eosinophils % (Manual) Basophils % (Manual) Nucleated RBC % 1.0 H Seg Neutrophils # Seg Neutrophils # Man 12.9 H Lymphocytes # (Manual) Monocytes # (Manual) 1.4 H Eosinophils # (Manual) Basophils # (Manual) 0.2 H PT INR Fibrinogen dRVVT Confirm Interp Factor V Activity POC ABG pH POC ABG pCO2 POC ABG pO2 ABG pO2 ABG HCO3 ABG Base Excess ABG Hemoglobin Oxyhemoglobin Sodium Potassium Chloride 97.8 L Carbon Dioxide BUN 84 H Creatinine 1.6 H Glucose 133 H POC Glucose 134 H Lactic Acid Calcium Phosphorus Magnesium Direct Bilirubin AST ALT Alkaline Phosphatase Lactate Dehydrogenase Troponin T C-Reactive Protein Total Protein Albumin Prealbumin Triglycerides Cholesterol LDL Cholesterol Direct HDL Cholesterol Urine pH Urine WBC (Auto) Urine Creatinine Urine Total Protein Fluid Total Protein Vancomycin Trough Rheumatoid Factor Complement C4 Miscellaneous Test Crossmatch 12/19/16 12/19/16 12/19/16 09:36 11:12 18:29 WBC RBC Hgb Hct MCV MCH MCHC RDW Plt Count Lymph % (Auto) [place] % (Auto) Lymph # [place] # Baso # Seg Neutrophils % Seg Neuts % (Manual) Lymphocytes % (Manual) Monocytes % (Manual) Eosinophils % (Manual) Basophils % (Manual) Nucleated RBC % Seg Neutrophils # Seg Neutrophils # Man Lymphocytes # (Manual) Monocytes # (Manual) Eosinophils # (Manual) Basophils # (Manual) PT INR Fibrinogen dRVVT Confirm Interp Factor V Activity POC ABG pH 7.503 H POC ABG pCO2 30.1 L POC ABG pO2 ABG pO2 ABG HCO3 ABG Base Excess ABG Hemoglobin Oxyhemoglobin Sodium Potassium Chloride Carbon Dioxide BUN Creatinine Glucose POC Glucose 138 H 156 H Lactic Acid Calcium Phosphorus Magnesium Direct Bilirubin AST ALT Alkaline Phosphatase Lactate Dehydrogenase Troponin T C-Reactive Protein Total Protein Albumin Prealbumin Triglycerides Cholesterol LDL Cholesterol Direct HDL Cholesterol Urine pH Urine WBC (Auto) Urine Creatinine Urine Total Protein Fluid Total Protein Vancomycin Trough Rheumatoid Factor Complement C4 Miscellaneous Test Crossmatch 12/20/16 12/20/16 12/20/16 00:03 06:17 07:07 WBC RBC Hgb Hct MCV MCH MCHC RDW Plt Count Lymph % (Auto) [place] % (Auto) Lymph # [place] # Baso # Seg Neutrophils % Seg Neuts % (Manual) Lymphocytes % (Manual) Monocytes % (Manual) Eosinophils % (Manual) Basophils % (Manual) Nucleated RBC % Seg Neutrophils # Seg Neutrophils # Man Lymphocytes # (Manual) Monocytes # (Manual) Eosinophils # (Manual) Basophils # (Manual) PT INR Fibrinogen dRVVT Confirm Interp Factor V Activity POC ABG pH POC ABG pCO2 POC ABG pO2 ABG pO2 ABG HCO3 ABG Base Excess ABG Hemoglobin Oxyhemoglobin Sodium Potassium Chloride 97.1 L Carbon Dioxide 20 L BUN 97 H Creatinine 1.8 H Glucose 153 H POC Glucose 152 H 175 H Lactic Acid Calcium Phosphorus Magnesium Direct Bilirubin AST ALT Alkaline Phosphatase Lactate Dehydrogenase Troponin T C-Reactive Protein Total Protein Albumin Prealbumin Triglycerides Cholesterol LDL Cholesterol Direct HDL Cholesterol Urine pH Urine WBC (Auto) Urine Creatinine Urine Total Protein Fluid Total Protein Vancomycin Trough Rheumatoid Factor Complement C4 Miscellaneous Test Crossmatch 12/20/16 12/20/16 12/20/16 12:00 17:42 23:53 WBC RBC Hgb Hct MCV MCH MCHC RDW Plt Count Lymph % (Auto) [place] % (Auto) Lymph # [place] # Baso # Seg Neutrophils % Seg Neuts % (Manual) Lymphocytes % (Manual) Monocytes % (Manual) Eosinophils % (Manual) Basophils % (Manual) Nucleated RBC % Seg Neutrophils # Seg Neutrophils # Man Lymphocytes # (Manual) Monocytes # (Manual) Eosinophils # (Manual) Basophils # (Manual) PT INR Fibrinogen dRVVT Confirm Interp Factor V Activity POC ABG pH POC ABG pCO2 POC ABG pO2 ABG pO2 ABG HCO3 ABG Base Excess ABG Hemoglobin Oxyhemoglobin Sodium Potassium Chloride Carbon Dioxide BUN Creatinine Glucose POC Glucose 141 H 156 H 132 H Lactic Acid Calcium Phosphorus Magnesium Direct Bilirubin AST ALT Alkaline Phosphatase Lactate Dehydrogenase Troponin T C-Reactive Protein Total Protein Albumin Prealbumin Triglycerides Cholesterol LDL Cholesterol Direct HDL Cholesterol Urine pH Urine WBC (Auto) Urine Creatinine Urine Total Protein Fluid Total Protein Vancomycin Trough Rheumatoid Factor Complement C4 Miscellaneous Test Crossmatch 12/21/16 12/21/16 12/21/16 05:49 08:50 12:19 WBC RBC Hgb Hct MCV MCH MCHC RDW Plt Count Lymph % (Auto) [place] % (Auto) Lymph # [place] # Baso # Seg Neutrophils % Seg Neuts % (Manual) Lymphocytes % (Manual) Monocytes % (Manual) Eosinophils % (Manual) Basophils % (Manual) Nucleated RBC % Seg Neutrophils # Seg Neutrophils # Man Lymphocytes # (Manual) Monocytes # (Manual) Eosinophils # (Manual) Basophils # (Manual) PT INR Fibrinogen dRVVT Confirm Interp Factor V Activity POC ABG pH POC ABG pCO2 POC ABG pO2 ABG pO2 ABG HCO3 ABG Base Excess ABG Hemoglobin Oxyhemoglobin Sodium Potassium 5.2 H D Chloride Carbon Dioxide BUN 63 H Creatinine Glucose 122 H POC Glucose 132 H 136 H Lactic Acid Calcium 8.3 L Phosphorus Magnesium Direct Bilirubin AST ALT Alkaline Phosphatase Lactate Dehydrogenase Troponin T C-Reactive Protein Total Protein Albumin Prealbumin Triglycerides Cholesterol LDL Cholesterol Direct HDL Cholesterol Urine pH Urine WBC (Auto) Urine Creatinine Urine Total Protein Fluid Total Protein Vancomycin Trough Rheumatoid Factor Complement C4 Miscellaneous Test Crossmatch 12/21/16 12/21/16 12/22/16 17:22 23:58 05:49 WBC RBC Hgb Hct MCV MCH MCHC RDW Plt Count Lymph % (Auto) [place] % (Auto) Lymph # [place] # Baso # Seg Neutrophils % Seg Neuts % (Manual) Lymphocytes % (Manual) Monocytes % (Manual) Eosinophils % (Manual) Basophils % (Manual) Nucleated RBC % Seg Neutrophils # Seg Neutrophils # Man Lymphocytes # (Manual) Monocytes # (Manual) Eosinophils # (Manual) Basophils # (Manual) PT INR Fibrinogen dRVVT Confirm Interp Factor V Activity POC ABG pH POC ABG pCO2 POC ABG pO2 ABG pO2 ABG HCO3 ABG Base Excess ABG Hemoglobin Oxyhemoglobin Sodium Potassium Chloride Carbon Dioxide BUN Creatinine Glucose POC Glucose 135 H 149 H 140 H Lactic Acid Calcium Phosphorus Magnesium Direct Bilirubin AST ALT Alkaline Phosphatase Lactate Dehydrogenase Troponin T C-Reactive Protein Total Protein Albumin Prealbumin Triglycerides Cholesterol LDL Cholesterol Direct HDL Cholesterol Urine pH Urine WBC (Auto) Urine Creatinine Urine Total Protein Fluid Total Protein Vancomycin Trough Rheumatoid Factor Complement C4 Miscellaneous Test Crossmatch 12/22/16 12/22/16 12/22/16 06:10 11:17 17:31 WBC RBC Hgb Hct MCV MCH MCHC RDW Plt Count Lymph % (Auto) [place] % (Auto) Lymph # [place] # Baso # Seg Neutrophils % Seg Neuts % (Manual) Lymphocytes % (Manual) Monocytes % (Manual) Eosinophils % (Manual) Basophils % (Manual) Nucleated RBC % Seg Neutrophils # Seg Neutrophils # Man Lymphocytes # (Manual) Monocytes # (Manual) Eosinophils # (Manual) Basophils # (Manual) PT INR Fibrinogen dRVVT Confirm Interp Factor V Activity POC ABG pH POC ABG pCO2 POC ABG pO2 ABG pO2 ABG HCO3 ABG Base Excess ABG Hemoglobin Oxyhemoglobin Sodium Potassium Chloride Carbon Dioxide BUN 76 H Creatinine 1.5 H Glucose 241 H POC Glucose 193 H 148 H Lactic Acid Calcium Phosphorus Magnesium Direct Bilirubin AST ALT Alkaline Phosphatase Lactate Dehydrogenase Troponin T C-Reactive Protein Total Protein Albumin Prealbumin Triglycerides Cholesterol LDL Cholesterol Direct HDL Cholesterol Urine pH Urine WBC (Auto) Urine Creatinine Urine Total Protein Fluid Total Protein Vancomycin Trough Rheumatoid Factor Complement C4 Miscellaneous Test Crossmatch 12/22/16 12/23/16 12/23/16 23:58 05:00 05:26 WBC RBC Hgb Hct MCV MCH MCHC RDW Plt Count Lymph % (Auto) [place] % (Auto) Lymph # [place] # Baso # Seg Neutrophils % Seg Neuts % (Manual) Lymphocytes % (Manual) Monocytes % (Manual) Eosinophils % (Manual) Basophils % (Manual) Nucleated RBC % Seg Neutrophils # Seg Neutrophils # Man Lymphocytes # (Manual) Monocytes # (Manual) Eosinophils # (Manual) Basophils # (Manual) PT INR Fibrinogen dRVVT Confirm Interp Factor V Activity POC ABG pH POC ABG pCO2 POC ABG pO2 ABG pO2 ABG HCO3 ABG Base Excess ABG Hemoglobin Oxyhemoglobin Sodium Potassium Chloride Carbon Dioxide BUN 49 H Creatinine Glucose 143 H POC Glucose 165 H 154 H Lactic Acid Calcium 8.2 L Phosphorus Magnesium 1.60 L Direct Bilirubin AST ALT Alkaline Phosphatase Lactate Dehydrogenase Troponin T C-Reactive Protein Total Protein Albumin Prealbumin Triglycerides Cholesterol LDL Cholesterol Direct HDL Cholesterol Urine pH Urine WBC (Auto) Urine Creatinine Urine Total Protein Fluid Total Protein Vancomycin Trough Rheumatoid Factor Complement C4 Miscellaneous Test Crossmatch 12/23/16 12/23/16 12/24/16 12:35 17:01 00:01 WBC RBC Hgb Hct MCV MCH MCHC RDW Plt Count Lymph % (Auto) [place] % (Auto) Lymph # [place] # Baso # Seg Neutrophils % Seg Neuts % (Manual) Lymphocytes % (Manual) Monocytes % (Manual) Eosinophils % (Manual) Basophils % (Manual) Nucleated RBC % Seg Neutrophils # Seg Neutrophils # Man Lymphocytes # (Manual) Monocytes # (Manual) Eosinophils # (Manual) Basophils # (Manual) PT INR Fibrinogen dRVVT Confirm Interp Factor V Activity POC ABG pH POC ABG pCO2 POC ABG pO2 ABG pO2 ABG HCO3 ABG Base Excess ABG Hemoglobin Oxyhemoglobin Sodium Potassium Chloride Carbon Dioxide BUN Creatinine Glucose POC Glucose 164 H 149 H 135 H Lactic Acid Calcium Phosphorus Magnesium Direct Bilirubin AST ALT Alkaline Phosphatase Lactate Dehydrogenase Troponin T C-Reactive Protein Total Protein Albumin Prealbumin Triglycerides Cholesterol LDL Cholesterol Direct HDL Cholesterol Urine pH Urine WBC (Auto) Urine Creatinine Urine Total Protein Fluid Total Protein Vancomycin Trough Rheumatoid Factor Complement C4 Miscellaneous Test Crossmatch 12/24/16 12/24/16 12/24/16 05:41 07:01 11:38 WBC RBC Hgb Hct MCV MCH MCHC RDW Plt Count Lymph % (Auto) [place] % (Auto) Lymph # [place] # Baso # Seg Neutrophils % Seg Neuts % (Manual) Lymphocytes % (Manual) Monocytes % (Manual) Eosinophils % (Manual) Basophils % (Manual) Nucleated RBC % Seg Neutrophils # Seg Neutrophils # Man Lymphocytes # (Manual) Monocytes # (Manual) Eosinophils # (Manual) Basophils # (Manual) PT INR Fibrinogen dRVVT Confirm Interp Factor V Activity POC ABG pH POC ABG pCO2 POC ABG pO2 ABG pO2 ABG HCO3 ABG Base Excess ABG Hemoglobin Oxyhemoglobin Sodium Potassium Chloride Carbon Dioxide BUN 72 H Creatinine 1.3 H Glucose 130 H POC Glucose 132 H 156 H Lactic Acid Calcium 8.2 L Phosphorus Magnesium Direct Bilirubin AST ALT Alkaline Phosphatase Lactate Dehydrogenase Troponin T C-Reactive Protein Total Protein Albumin Prealbumin Triglycerides Cholesterol LDL Cholesterol Direct HDL Cholesterol Urine pH Urine WBC (Auto) Urine Creatinine Urine Total Protein Fluid Total Protein Vancomycin Trough Rheumatoid Factor Complement C4 Miscellaneous Test Crossmatch 12/24/16 12/25/16 12/25/16 17:53 00:23 05:45 WBC RBC Hgb Hct MCV MCH MCHC RDW Plt Count Lymph % (Auto) [place] % (Auto) Lymph # [place] # Baso # Seg Neutrophils % Seg Neuts % (Manual) Lymphocytes % (Manual) Monocytes % (Manual) Eosinophils % (Manual) Basophils % (Manual) Nucleated RBC % Seg Neutrophils # Seg Neutrophils # Man Lymphocytes # (Manual) Monocytes # (Manual) Eosinophils # (Manual) Basophils # (Manual) PT INR Fibrinogen dRVVT Confirm Interp Factor V Activity POC ABG pH POC ABG pCO2 POC ABG pO2 ABG pO2 ABG HCO3 ABG Base Excess ABG Hemoglobin Oxyhemoglobin Sodium 146 H Potassium Chloride Carbon Dioxide BUN 51 H Creatinine Glucose 109 H POC Glucose 169 H 117 H Lactic Acid Calcium Phosphorus Magnesium Direct Bilirubin AST ALT Alkaline Phosphatase Lactate Dehydrogenase Troponin T C-Reactive Protein Total Protein Albumin Prealbumin Triglycerides Cholesterol LDL Cholesterol Direct HDL Cholesterol Urine pH Urine WBC (Auto) Urine Creatinine Urine Total Protein Fluid Total Protein Vancomycin Trough Rheumatoid Factor Complement C4 Miscellaneous Test Crossmatch 12/25/16 12/25/16 12/25/16 06:43 11:29 17:14 WBC RBC Hgb Hct MCV MCH MCHC RDW Plt Count Lymph % (Auto) [place] % (Auto) Lymph # [place] # Baso # Seg Neutrophils % Seg Neuts % (Manual) Lymphocytes % (Manual) Monocytes % (Manual) Eosinophils % (Manual) Basophils % (Manual) Nucleated RBC % Seg Neutrophils # Seg Neutrophils # Man Lymphocytes # (Manual) Monocytes # (Manual) Eosinophils # (Manual) Basophils # (Manual) PT INR Fibrinogen dRVVT Confirm Interp Factor V Activity POC ABG pH POC ABG pCO2 POC ABG pO2 ABG pO2 ABG HCO3 ABG Base Excess ABG Hemoglobin Oxyhemoglobin Sodium Potassium Chloride Carbon Dioxide BUN Creatinine Glucose POC Glucose 117 H 128 H 120 H Lactic Acid Calcium Phosphorus Magnesium Direct Bilirubin AST ALT Alkaline Phosphatase Lactate Dehydrogenase Troponin T C-Reactive Protein Total Protein Albumin Prealbumin Triglycerides Cholesterol LDL Cholesterol Direct HDL Cholesterol Urine pH Urine WBC (Auto) Urine Creatinine Urine Total Protein Fluid Total Protein Vancomycin Trough Rheumatoid Factor Complement C4 Miscellaneous Test Crossmatch 12/25/16 12/26/16 12/26/16 23:54 05:40 05:50 WBC 16.2 H RBC 2.32 L Hgb 6.2 L Hct 20.1 L MCV MCH 27 L MCHC RDW 18.6 H Plt Count Lymph % (Auto) [place] % (Auto) Lymph # [place] # Baso # Seg Neutrophils % Seg Neuts % (Manual) Lymphocytes % (Manual) Monocytes % (Manual) Eosinophils % (Manual) Basophils % (Manual) Nucleated RBC % Seg Neutrophils # Seg Neutrophils # Man Lymphocytes # (Manual) Monocytes # (Manual) Eosinophils # (Manual) Basophils # (Manual) PT INR Fibrinogen dRVVT Confirm Interp Factor V Activity POC ABG pH POC ABG pCO2 POC ABG pO2 ABG pO2 ABG HCO3 ABG Base Excess ABG Hemoglobin Oxyhemoglobin Sodium Potassium Chloride Carbon Dioxide BUN Creatinine Glucose POC Glucose 126 H 132 H Lactic Acid Calcium Phosphorus Magnesium Direct Bilirubin AST ALT Alkaline Phosphatase Lactate Dehydrogenase Troponin T C-Reactive Protein Total Protein Albumin Prealbumin Triglycerides Cholesterol LDL Cholesterol Direct HDL Cholesterol Urine pH Urine WBC (Auto) Urine Creatinine Urine Total Protein Fluid Total Protein Vancomycin Trough Rheumatoid Factor Complement C4 Miscellaneous Test Crossmatch 12/26/16 12/26/16 12/26/16 05:50 12:17 12:33 WBC RBC Hgb Hct MCV MCH MCHC RDW Plt Count Lymph % (Auto) [place] % (Auto) Lymph # [place] # Baso # Seg Neutrophils % Seg Neuts % (Manual) Lymphocytes % (Manual) Monocytes % (Manual) Eosinophils % (Manual) Basophils % (Manual) Nucleated RBC % Seg Neutrophils # Seg Neutrophils # Man Lymphocytes # (Manual) Monocytes # (Manual) Eosinophils # (Manual) Basophils # (Manual) PT INR Fibrinogen dRVVT Confirm Interp Factor V Activity POC ABG pH POC ABG pCO2 POC ABG pO2 ABG pO2 ABG HCO3 ABG Base Excess ABG Hemoglobin Oxyhemoglobin Sodium Potassium Chloride Carbon Dioxide BUN 73 H Creatinine 1.3 H Glucose 113 H POC Glucose 117 H Lactic Acid Calcium Phosphorus Magnesium Direct Bilirubin AST ALT Alkaline Phosphatase Lactate Dehydrogenase Troponin T C-Reactive Protein Total Protein Albumin Prealbumin Triglycerides Cholesterol LDL Cholesterol Direct HDL Cholesterol Urine pH Urine WBC (Auto) Urine Creatinine Urine Total Protein Fluid Total Protein Vancomycin Trough Rheumatoid Factor Complement C4 Miscellaneous Test Crossmatch See Detail 12/26/16 12/26/16 12/27/16 20:00 23:21 05:00 WBC RBC Hgb 8.4 L Hct 26.3 L D MCV MCH MCHC RDW Plt Count Lymph % (Auto) [place] % (Auto) Lymph # [place] # Baso # Seg Neutrophils % Seg Neuts % (Manual) Lymphocytes % (Manual) Monocytes % (Manual) Eosinophils % (Manual) Basophils % (Manual) Nucleated RBC % Seg Neutrophils # Seg Neutrophils # Man Lymphocytes # (Manual) Monocytes # (Manual) Eosinophils # (Manual) Basophils # (Manual) PT INR Fibrinogen dRVVT Confirm Interp Factor V Activity POC ABG pH POC ABG pCO2 POC ABG pO2 ABG pO2 ABG HCO3 ABG Base Excess ABG Hemoglobin Oxyhemoglobin Sodium Potassium Chloride Carbon Dioxide BUN 85 H Creatinine 1.6 H Glucose 118 H POC Glucose 124 H Lactic Acid Calcium Phosphorus 4.80 H Magnesium Direct Bilirubin AST ALT Alkaline Phosphatase Lactate Dehydrogenase Troponin T C-Reactive Protein Total Protein Albumin Prealbumin Triglycerides Cholesterol LDL Cholesterol Direct HDL Cholesterol Urine pH Urine WBC (Auto) Urine Creatinine Urine Total Protein Fluid Total Protein Vancomycin Trough Rheumatoid Factor Complement C4 Miscellaneous Test Crossmatch 12/27/16 12/27/16 12/27/16 05:00 05:35 12:24 WBC RBC Hgb 7.6 L Hct 22.8 L MCV MCH MCHC RDW Plt Count Lymph % (Auto) [place] % (Auto) Lymph # [place] # Baso # Seg Neutrophils % Seg Neuts % (Manual) Lymphocytes % (Manual) Monocytes % (Manual) Eosinophils % (Manual) Basophils % (Manual) Nucleated RBC % Seg Neutrophils # Seg Neutrophils # Man Lymphocytes # (Manual) Monocytes # (Manual) Eosinophils # (Manual) Basophils # (Manual) PT INR Fibrinogen dRVVT Confirm Interp Factor V Activity POC ABG pH POC ABG pCO2 POC ABG pO2 ABG pO2 ABG HCO3 ABG Base Excess ABG Hemoglobin Oxyhemoglobin Sodium Potassium Chloride Carbon Dioxide BUN Creatinine Glucose POC Glucose 115 H 131 H Lactic Acid Calcium Phosphorus Magnesium Direct Bilirubin AST ALT Alkaline Phosphatase Lactate Dehydrogenase Troponin T C-Reactive Protein Total Protein Albumin Prealbumin Triglycerides Cholesterol LDL Cholesterol Direct HDL Cholesterol Urine pH Urine WBC (Auto) Urine Creatinine Urine Total Protein Fluid Total Protein Vancomycin Trough Rheumatoid Factor Complement C4 Miscellaneous Test Crossmatch 12/27/16 12/28/16 12/28/16 17:16 00:18 04:00 WBC RBC Hgb Hct MCV MCH MCHC RDW Plt Count Lymph % (Auto) [place] % (Auto) Lymph # [place] # Baso # Seg Neutrophils % Seg Neuts % (Manual) Lymphocytes % (Manual) Monocytes % (Manual) Eosinophils % (Manual) Basophils % (Manual) Nucleated RBC % Seg Neutrophils # Seg Neutrophils # Man Lymphocytes # (Manual) Monocytes # (Manual) Eosinophils # (Manual) Basophils # (Manual) PT INR Fibrinogen dRVVT Confirm Interp Factor V Activity POC ABG pH POC ABG pCO2 POC ABG pO2 ABG pO2 ABG HCO3 ABG Base Excess ABG Hemoglobin Oxyhemoglobin Sodium Potassium 3.5 L Chloride Carbon Dioxide BUN 57 H Creatinine Glucose 118 H POC Glucose 136 H 120 H Lactic Acid Calcium 8.3 L Phosphorus Magnesium Direct Bilirubin AST ALT Alkaline Phosphatase Lactate Dehydrogenase Troponin T C-Reactive Protein Total Protein Albumin Prealbumin Triglycerides Cholesterol LDL Cholesterol Direct HDL Cholesterol Urine pH Urine WBC (Auto) Urine Creatinine Urine Total Protein Fluid Total Protein Vancomycin Trough Rheumatoid Factor Complement C4 Miscellaneous Test Crossmatch 12/28/16 12/28/16 12/28/16 04:00 05:11 08:30 WBC 17.0 H RBC 2.58 L Hgb 7.1 L Hct 22.0 L MCV MCH MCHC RDW 17.6 H Plt Count Lymph % (Auto) 12.2 L [place] % (Auto) Lymph # [place] # 1.1 H Baso # Seg Neutrophils % 80.5 H Seg Neuts % (Manual) Lymphocytes % (Manual) Monocytes % (Manual) Eosinophils % (Manual) Basophils % (Manual) Nucleated RBC % Seg Neutrophils # 13.7 H Seg Neutrophils # Man Lymphocytes # (Manual) Monocytes # (Manual) Eosinophils # (Manual) Basophils # (Manual) PT 16.1 H INR 1.23 H Fibrinogen dRVVT Confirm Interp Factor V Activity POC ABG pH POC ABG pCO2 POC ABG pO2 ABG pO2 ABG HCO3 ABG Base Excess ABG Hemoglobin Oxyhemoglobin Sodium Potassium Chloride Carbon Dioxide BUN Creatinine Glucose POC Glucose 122 H Lactic Acid Calcium Phosphorus Magnesium Direct Bilirubin AST ALT Alkaline Phosphatase Lactate Dehydrogenase Troponin T C-Reactive Protein Total Protein Albumin Prealbumin Triglycerides Cholesterol LDL Cholesterol Direct HDL Cholesterol Urine pH Urine WBC (Auto) Urine Creatinine Urine Total Protein Fluid Total Protein Vancomycin Trough Rheumatoid Factor Complement C4 Miscellaneous Test Crossmatch 12/28/16 12/28/16 12/28/16 12:27 16:32 23:46 WBC RBC Hgb Hct MCV MCH MCHC RDW Plt Count Lymph % (Auto) [place] % (Auto) Lymph # [place] # Baso # Seg Neutrophils % Seg Neuts % (Manual) Lymphocytes % (Manual) Monocytes % (Manual) Eosinophils % (Manual) Basophils % (Manual) Nucleated RBC % Seg Neutrophils # Seg Neutrophils # Man Lymphocytes # (Manual) Monocytes # (Manual) Eosinophils # (Manual) Basophils # (Manual) PT INR Fibrinogen dRVVT Confirm Interp Factor V Activity POC ABG pH POC ABG pCO2 POC ABG pO2 ABG pO2 ABG HCO3 ABG Base Excess ABG Hemoglobin Oxyhemoglobin Sodium Potassium Chloride Carbon Dioxide BUN Creatinine Glucose POC Glucose 127 H 117 H 108 H Lactic Acid Calcium Phosphorus Magnesium Direct Bilirubin AST ALT Alkaline Phosphatase Lactate Dehydrogenase Troponin T C-Reactive Protein Total Protein Albumin Prealbumin Triglycerides Cholesterol LDL Cholesterol Direct HDL Cholesterol Urine pH Urine WBC (Auto) Urine Creatinine Urine Total Protein Fluid Total Protein Vancomycin Trough Rheumatoid Factor Complement C4 Miscellaneous Test Crossmatch 12/29/16 12/29/16 12/29/16 05:15 05:15 05:32 WBC RBC Hgb Hct MCV MCH MCHC RDW Plt Count Lymph % (Auto) [place] % (Auto) Lymph # [place] # Baso # Seg Neutrophils % Seg Neuts % (Manual) Lymphocytes % (Manual) Monocytes % (Manual) Eosinophils % (Manual) Basophils % (Manual) Nucleated RBC % Seg Neutrophils # Seg Neutrophils # Man Lymphocytes # (Manual) Monocytes # (Manual) Eosinophils # (Manual) Basophils # (Manual) PT INR Fibrinogen dRVVT Confirm Interp Factor V Activity POC ABG pH POC ABG pCO2 POC ABG pO2 ABG pO2 ABG HCO3 ABG Base Excess ABG Hemoglobin Oxyhemoglobin Sodium Potassium Chloride Carbon Dioxide BUN 74 H Creatinine 1.6 H Glucose 111 H POC Glucose 123 H Lactic Acid Calcium Phosphorus Magnesium Direct Bilirubin AST ALT Alkaline Phosphatase Lactate Dehydrogenase Troponin T C-Reactive Protein Total Protein Albumin Prealbumin 0.110 L Triglycerides Cholesterol LDL Cholesterol Direct HDL Cholesterol Urine pH Urine WBC (Auto) Urine Creatinine Urine Total Protein Fluid Total Protein Vancomycin Trough Rheumatoid Factor Complement C4 Miscellaneous Test Crossmatch 12/29/16 12/29/16 12/29/16 11:43 13:45 14:00 WBC 13.8 H RBC 2.26 L Hgb 6.3 L Hct 20.4 L MCV MCH MCHC RDW 18.3 H Plt Count Lymph % (Auto) [place] % (Auto) Lymph # [place] # 0.9 H Baso # Seg Neutrophils % 78.6 H Seg Neuts % (Manual) Lymphocytes % (Manual) Monocytes % (Manual) Eosinophils % (Manual) Basophils % (Manual) Nucleated RBC % Seg Neutrophils # 10.8 H Seg Neutrophils # Man Lymphocytes # (Manual) Monocytes # (Manual) Eosinophils # (Manual) Basophils # (Manual) PT INR Fibrinogen dRVVT Confirm Interp Factor V Activity POC ABG pH POC ABG pCO2 POC ABG pO2 ABG pO2 ABG HCO3 ABG Base Excess ABG Hemoglobin Oxyhemoglobin Sodium Potassium Chloride Carbon Dioxide BUN Creatinine Glucose POC Glucose 133 H Lactic Acid Calcium Phosphorus Magnesium Direct Bilirubin AST ALT Alkaline Phosphatase Lactate Dehydrogenase Troponin T C-Reactive Protein Total Protein Albumin Prealbumin Triglycerides Cholesterol LDL Cholesterol Direct HDL Cholesterol Urine pH Urine WBC (Auto) Urine Creatinine Urine Total Protein Fluid Total Protein Vancomycin Trough Rheumatoid Factor Complement C4 Miscellaneous Test Crossmatch See Detail 12/29/16 12/29/16 12/29/16 17:03 23:15 23:22 WBC RBC Hgb 7.3 L Hct 22.3 L MCV MCH MCHC RDW Plt Count Lymph % (Auto) [place] % (Auto) Lymph # [place] # Baso # Seg Neutrophils % Seg Neuts % (Manual) Lymphocytes % (Manual) Monocytes % (Manual) Eosinophils % (Manual) Basophils % (Manual) Nucleated RBC % Seg Neutrophils # Seg Neutrophils # Man Lymphocytes # (Manual) Monocytes # (Manual) Eosinophils # (Manual) Basophils # (Manual) PT INR Fibrinogen dRVVT Confirm Interp Factor V Activity POC ABG pH POC ABG pCO2 POC ABG pO2 ABG pO2 ABG HCO3 ABG Base Excess ABG Hemoglobin Oxyhemoglobin Sodium Potassium Chloride Carbon Dioxide BUN Creatinine Glucose POC Glucose 139 H 120 H Lactic Acid Calcium Phosphorus Magnesium Direct Bilirubin AST ALT Alkaline Phosphatase Lactate Dehydrogenase Troponin T C-Reactive Protein Total Protein Albumin Prealbumin Triglycerides Cholesterol LDL Cholesterol Direct HDL Cholesterol Urine pH Urine WBC (Auto) Urine Creatinine Urine Total Protein Fluid Total Protein Vancomycin Trough Rheumatoid Factor Complement C4 Miscellaneous Test Crossmatch 12/30/16 12/30/16 12/30/16 04:20 04:20 05:43 WBC 15.6 H RBC 2.81 L Hgb 8.0 L Hct 24.0 L MCV MCH MCHC RDW 16.9 H Plt Count Lymph % (Auto) [place] % (Auto) Lymph # [place] # 1.0 H Baso # Seg Neutrophils % 76.2 H Seg Neuts % (Manual) Lymphocytes % (Manual) Monocytes % (Manual) Eosinophils % (Manual) Basophils % (Manual) Nucleated RBC % Seg Neutrophils # 11.9 H Seg Neutrophils # Man Lymphocytes # (Manual) Monocytes # (Manual) Eosinophils # (Manual) Basophils # (Manual) PT INR Fibrinogen dRVVT Confirm Interp Factor V Activity POC ABG pH POC ABG pCO2 POC ABG pO2 ABG pO2 ABG HCO3 ABG Base Excess ABG Hemoglobin Oxyhemoglobin Sodium Potassium Chloride Carbon Dioxide BUN 87 H Creatinine 1.8 H Glucose 119 H POC Glucose 115 H Lactic Acid Calcium Phosphorus Magnesium Direct Bilirubin AST ALT Alkaline Phosphatase Lactate Dehydrogenase Troponin T C-Reactive Protein Total Protein Albumin Prealbumin Triglycerides Cholesterol LDL Cholesterol Direct HDL Cholesterol Urine pH Urine WBC (Auto) Urine Creatinine Urine Total Protein Fluid Total Protein Vancomycin Trough Rheumatoid Factor Complement C4 Miscellaneous Test Crossmatch 12/30/16 12/30/16 12/31/16 17:27 23:21 04:00 WBC RBC Hgb Hct MCV MCH MCHC RDW Plt Count Lymph % (Auto) [place] % (Auto) Lymph # [place] # Baso # Seg Neutrophils % Seg Neuts % (Manual) Lymphocytes % (Manual) Monocytes % (Manual) Eosinophils % (Manual) Basophils % (Manual) Nucleated RBC % Seg Neutrophils # Seg Neutrophils # Man Lymphocytes # (Manual) Monocytes # (Manual) Eosinophils # (Manual) Basophils # (Manual) PT INR Fibrinogen dRVVT Confirm Interp Factor V Activity POC ABG pH POC ABG pCO2 POC ABG pO2 ABG pO2 ABG HCO3 ABG Base Excess ABG Hemoglobin Oxyhemoglobin Sodium Potassium Chloride Carbon Dioxide BUN 59 H Creatinine Glucose 298 H POC Glucose 144 H 125 H Lactic Acid Calcium Phosphorus Magnesium Direct Bilirubin AST ALT Alkaline Phosphatase Lactate Dehydrogenase Troponin T C-Reactive Protein Total Protein Albumin Prealbumin Triglycerides Cholesterol LDL Cholesterol Direct HDL Cholesterol Urine pH Urine WBC (Auto) Urine Creatinine Urine Total Protein Fluid Total Protein Vancomycin Trough Rheumatoid Factor Complement C4 Miscellaneous Test Crossmatch 12/31/16 12/31/16 12/31/16 05:11 12:18 18:17 WBC RBC Hgb Hct MCV MCH MCHC RDW Plt Count Lymph % (Auto) [place] % (Auto) Lymph # [place] # Baso # Seg Neutrophils % Seg Neuts % (Manual) Lymphocytes % (Manual) Monocytes % (Manual) Eosinophils % (Manual) Basophils % (Manual) Nucleated RBC % Seg Neutrophils # Seg Neutrophils # Man Lymphocytes # (Manual) Monocytes # (Manual) Eosinophils # (Manual) Basophils # (Manual) PT INR Fibrinogen dRVVT Confirm Interp Factor V Activity POC ABG pH POC ABG pCO2 POC ABG pO2 ABG pO2 ABG HCO3 ABG Base Excess ABG Hemoglobin Oxyhemoglobin Sodium Potassium Chloride Carbon Dioxide BUN Creatinine Glucose POC Glucose 167 H 125 H 133 H Lactic Acid Calcium Phosphorus Magnesium Direct Bilirubin AST ALT Alkaline Phosphatase Lactate Dehydrogenase Troponin T C-Reactive Protein Total Protein Albumin Prealbumin Triglycerides Cholesterol LDL Cholesterol Direct HDL Cholesterol Urine pH Urine WBC (Auto) Urine Creatinine Urine Total Protein Fluid Total Protein Vancomycin Trough Rheumatoid Factor Complement C4 Miscellaneous Test Crossmatch 12/31/16 01/01/17 01/01/17 23:55 05:00 05:12 WBC RBC Hgb Hct MCV MCH MCHC RDW Plt Count Lymph % (Auto) [place] % (Auto) Lymph # [place] # Baso # Seg Neutrophils % Seg Neuts % (Manual) Lymphocytes % (Manual) Monocytes % (Manual) Eosinophils % (Manual) Basophils % (Manual) Nucleated RBC % Seg Neutrophils # Seg Neutrophils # Man Lymphocytes # (Manual) Monocytes # (Manual) Eosinophils # (Manual) Basophils # (Manual) PT INR Fibrinogen dRVVT Confirm Interp Factor V Activity POC ABG pH POC ABG pCO2 POC ABG pO2 ABG pO2 ABG HCO3 ABG Base Excess ABG Hemoglobin Oxyhemoglobin Sodium Potassium Chloride Carbon Dioxide BUN 76 H Creatinine 1.5 H Glucose 109 H POC Glucose 129 H 129 H Lactic Acid Calcium Phosphorus Magnesium Direct Bilirubin AST ALT Alkaline Phosphatase 536 H Lactate Dehydrogenase Troponin T C-Reactive Protein Total Protein Albumin 1.5 L Prealbumin Triglycerides Cholesterol LDL Cholesterol Direct HDL Cholesterol Urine pH Urine WBC (Auto) Urine Creatinine Urine Total Protein Fluid Total Protein Vancomycin Trough Rheumatoid Factor Complement C4 Miscellaneous Test Crossmatch 01/01/17 01/01/17 01/01/17 12:25 17:01 23:32 WBC RBC Hgb Hct MCV MCH MCHC RDW Plt Count Lymph % (Auto) [place] % (Auto) Lymph # [place] # Baso # Seg Neutrophils % Seg Neuts % (Manual) Lymphocytes % (Manual) Monocytes % (Manual) Eosinophils % (Manual) Basophils % (Manual) Nucleated RBC % Seg Neutrophils # Seg Neutrophils # Man Lymphocytes # (Manual) Monocytes # (Manual) Eosinophils # (Manual) Basophils # (Manual) PT INR Fibrinogen dRVVT Confirm Interp Factor V Activity POC ABG pH POC ABG pCO2 POC ABG pO2 ABG pO2 ABG HCO3 ABG Base Excess ABG Hemoglobin Oxyhemoglobin Sodium Potassium Chloride Carbon Dioxide BUN Creatinine Glucose POC Glucose 140 H 142 H 112 H Lactic Acid Calcium Phosphorus Magnesium Direct Bilirubin AST ALT Alkaline Phosphatase Lactate Dehydrogenase Troponin T C-Reactive Protein Total Protein Albumin Prealbumin Triglycerides Cholesterol LDL Cholesterol Direct HDL Cholesterol Urine pH Urine WBC (Auto) Urine Creatinine Urine Total Protein Fluid Total Protein Vancomycin Trough Rheumatoid Factor Complement C4 Miscellaneous Test Crossmatch 01/02/17 01/02/17 01/02/17 04:56 06:00 11:37 WBC RBC Hgb Hct MCV MCH MCHC RDW Plt Count Lymph % (Auto) [place] % (Auto) Lymph # [place] # Baso # Seg Neutrophils % Seg Neuts % (Manual) Lymphocytes % (Manual) Monocytes % (Manual) Eosinophils % (Manual) Basophils % (Manual) Nucleated RBC % Seg Neutrophils # Seg Neutrophils # Man Lymphocytes # (Manual) Monocytes # (Manual) Eosinophils # (Manual) Basophils # (Manual) PT INR Fibrinogen dRVVT Confirm Interp Factor V Activity POC ABG pH POC ABG pCO2 POC ABG pO2 ABG pO2 ABG HCO3 ABG Base Excess ABG Hemoglobin Oxyhemoglobin Sodium Potassium Chloride Carbon Dioxide BUN 88 H Creatinine 1.7 H Glucose 113 H POC Glucose 136 H 200 H Lactic Acid Calcium Phosphorus Magnesium Direct Bilirubin AST ALT Alkaline Phosphatase Lactate Dehydrogenase Troponin T C-Reactive Protein Total Protein Albumin Prealbumin Triglycerides Cholesterol LDL Cholesterol Direct HDL Cholesterol Urine pH Urine WBC (Auto) Urine Creatinine Urine Total Protein Fluid Total Protein Vancomycin Trough Rheumatoid Factor Complement C4 Miscellaneous Test Crossmatch 01/02/17 01/02/17 01/03/17 17:42 22:52 04:54 WBC RBC Hgb Hct MCV MCH MCHC RDW Plt Count Lymph % (Auto) [place] % (Auto) Lymph # [place] # Baso # Seg Neutrophils % Seg Neuts % (Manual) Lymphocytes % (Manual) Monocytes % (Manual) Eosinophils % (Manual) Basophils % (Manual) Nucleated RBC % Seg Neutrophils # Seg Neutrophils # Man Lymphocytes # (Manual) Monocytes # (Manual) Eosinophils # (Manual) Basophils # (Manual) PT INR Fibrinogen dRVVT Confirm Interp Factor V Activity POC ABG pH POC ABG pCO2 POC ABG pO2 ABG pO2 ABG HCO3 ABG Base Excess ABG Hemoglobin Oxyhemoglobin Sodium Potassium Chloride Carbon Dioxide BUN Creatinine Glucose POC Glucose 112 H 133 H 111 H Lactic Acid Calcium Phosphorus Magnesium Direct Bilirubin AST ALT Alkaline Phosphatase Lactate Dehydrogenase Troponin T C-Reactive Protein Total Protein Albumin Prealbumin Triglycerides Cholesterol LDL Cholesterol Direct HDL Cholesterol Urine pH Urine WBC (Auto) Urine Creatinine Urine Total Protein Fluid Total Protein Vancomycin Trough Rheumatoid Factor Complement C4 Miscellaneous Test Crossmatch 01/03/17 01/03/17 01/03/17 05:00 05:00 14:02 WBC 11.2 H RBC 2.56 L Hgb 7.2 L Hct 22.3 L MCV MCH MCHC RDW 17.3 H Plt Count Lymph % (Auto) [place] % (Auto) 10.0 H Lymph # [place] # 1.1 H Baso # Seg Neutrophils % 70.5 H Seg Neuts % (Manual) Lymphocytes % (Manual) Monocytes % (Manual) Eosinophils % (Manual) Basophils % (Manual) Nucleated RBC % Seg Neutrophils # 7.9 H Seg Neutrophils # Man Lymphocytes # (Manual) Monocytes # (Manual) Eosinophils # (Manual) Basophils # (Manual) PT INR Fibrinogen dRVVT Confirm Interp Factor V Activity POC ABG pH POC ABG pCO2 POC ABG pO2 ABG pO2 ABG HCO3 ABG Base Excess ABG Hemoglobin Oxyhemoglobin Sodium Potassium Chloride Carbon Dioxide BUN 60 H Creatinine 1.3 H Glucose 110 H POC Glucose 119 H Lactic Acid Calcium Phosphorus Magnesium Direct Bilirubin AST ALT Alkaline Phosphatase Lactate Dehydrogenase Troponin T C-Reactive Protein Total Protein Albumin Prealbumin Triglycerides Cholesterol LDL Cholesterol Direct HDL Cholesterol Urine pH Urine WBC (Auto) Urine Creatinine Urine Total Protein Fluid Total Protein Vancomycin Trough Rheumatoid Factor Complement C4 Miscellaneous Test Crossmatch 01/03/17 01/03/17 01/04/17 18:13 23:40 05:57 WBC RBC Hgb Hct MCV MCH MCHC RDW Plt Count Lymph % (Auto) [place] % (Auto) Lymph # [place] # Baso # Seg Neutrophils % Seg Neuts % (Manual) Lymphocytes % (Manual) Monocytes % (Manual) Eosinophils % (Manual) Basophils % (Manual) Nucleated RBC % Seg Neutrophils # Seg Neutrophils # Man Lymphocytes # (Manual) Monocytes # (Manual) Eosinophils # (Manual) Basophils # (Manual) PT INR Fibrinogen dRVVT Confirm Interp Factor V Activity POC ABG pH POC ABG pCO2 POC ABG pO2 ABG pO2 ABG HCO3 ABG Base Excess ABG Hemoglobin Oxyhemoglobin Sodium Potassium Chloride Carbon Dioxide BUN Creatinine Glucose POC Glucose 107 H 129 H 111 H Lactic Acid Calcium Phosphorus Magnesium Direct Bilirubin AST ALT Alkaline Phosphatase Lactate Dehydrogenase Troponin T C-Reactive Protein Total Protein Albumin Prealbumin Triglycerides Cholesterol LDL Cholesterol Direct HDL Cholesterol Urine pH Urine WBC (Auto) Urine Creatinine Urine Total Protein Fluid Total Protein Vancomycin Trough Rheumatoid Factor Complement C4 Miscellaneous Test Crossmatch 01/04/17 01/04/17 01/04/17 12:46 15:27 17:11 WBC RBC Hgb Hct MCV MCH MCHC RDW Plt Count Lymph % (Auto) [place] % (Auto) Lymph # [place] # Baso # Seg Neutrophils % Seg Neuts % (Manual) Lymphocytes % (Manual) Monocytes % (Manual) Eosinophils % (Manual) Basophils % (Manual) Nucleated RBC % Seg Neutrophils # Seg Neutrophils # Man Lymphocytes # (Manual) Monocytes # (Manual) Eosinophils # (Manual) Basophils # (Manual) PT INR Fibrinogen dRVVT Confirm Interp Factor V Activity POC ABG pH POC ABG pCO2 POC ABG pO2 ABG pO2 ABG HCO3 ABG Base Excess ABG Hemoglobin Oxyhemoglobin Sodium Potassium Chloride Carbon Dioxide BUN 43 H Creatinine Glucose 124 H POC Glucose 159 H 125 H Lactic Acid Calcium 8.0 L Phosphorus 2.10 L Magnesium Direct Bilirubin AST ALT Alkaline Phosphatase Lactate Dehydrogenase Troponin T C-Reactive Protein Total Protein Albumin Prealbumin Triglycerides Cholesterol LDL Cholesterol Direct HDL Cholesterol Urine pH Urine WBC (Auto) Urine Creatinine Urine Total Protein Fluid Total Protein Vancomycin Trough Rheumatoid Factor Complement C4 Miscellaneous Test Crossmatch 01/04/17 01/05/17 01/05/17 23:31 04:00 05:46 WBC RBC Hgb Hct MCV MCH MCHC RDW Plt Count Lymph % (Auto) [place] % (Auto) Lymph # [place] # Baso # Seg Neutrophils % Seg Neuts % (Manual) Lymphocytes % (Manual) Monocytes % (Manual) Eosinophils % (Manual) Basophils % (Manual) Nucleated RBC % Seg Neutrophils # Seg Neutrophils # Man Lymphocytes # (Manual) Monocytes # (Manual) Eosinophils # (Manual) Basophils # (Manual) PT INR Fibrinogen dRVVT Confirm Interp Factor V Activity POC ABG pH POC ABG pCO2 POC ABG pO2 ABG pO2 ABG HCO3 ABG Base Excess ABG Hemoglobin Oxyhemoglobin Sodium Potassium Chloride Carbon Dioxide BUN 52 H Creatinine 1.3 H Glucose 113 H POC Glucose 123 H 118 H Lactic Acid Calcium Phosphorus 2.40 L Magnesium Direct Bilirubin AST ALT Alkaline Phosphatase Lactate Dehydrogenase Troponin T C-Reactive Protein Total Protein Albumin Prealbumin Triglycerides Cholesterol LDL Cholesterol Direct HDL Cholesterol Urine pH Urine WBC (Auto) Urine Creatinine Urine Total Protein Fluid Total Protein Vancomycin Trough Rheumatoid Factor Complement C4 Miscellaneous Test Crossmatch 01/05/17 01/05/17 01/05/17 11:41 17:48 23:27 WBC RBC Hgb Hct MCV MCH MCHC RDW Plt Count Lymph % (Auto) [place] % (Auto) Lymph # [place] # Baso # Seg Neutrophils % Seg Neuts % (Manual) Lymphocytes % (Manual) Monocytes % (Manual) Eosinophils % (Manual) Basophils % (Manual) Nucleated RBC % Seg Neutrophils # Seg Neutrophils # Man Lymphocytes # (Manual) Monocytes # (Manual) Eosinophils # (Manual) Basophils # (Manual) PT INR Fibrinogen dRVVT Confirm Interp Factor V Activity POC ABG pH POC ABG pCO2 POC ABG pO2 ABG pO2 ABG HCO3 ABG Base Excess ABG Hemoglobin Oxyhemoglobin Sodium Potassium Chloride Carbon Dioxide BUN Creatinine Glucose POC Glucose 163 H 142 H 155 H Lactic Acid Calcium Phosphorus Magnesium Direct Bilirubin AST ALT Alkaline Phosphatase Lactate Dehydrogenase Troponin T C-Reactive Protein Total Protein Albumin Prealbumin Triglycerides Cholesterol LDL Cholesterol Direct HDL Cholesterol Urine pH Urine WBC (Auto) Urine Creatinine Urine Total Protein Fluid Total Protein Vancomycin Trough Rheumatoid Factor Complement C4 Miscellaneous Test Crossmatch 01/06/17 01/06/17 01/06/17 05:20 07:35 11:18 WBC RBC Hgb Hct MCV MCH MCHC RDW Plt Count Lymph % (Auto) [place] % (Auto) Lymph # [place] # Baso # Seg Neutrophils % Seg Neuts % (Manual) Lymphocytes % (Manual) Monocytes % (Manual) Eosinophils % (Manual) Basophils % (Manual) Nucleated RBC % Seg Neutrophils # Seg Neutrophils # Man Lymphocytes # (Manual) Monocytes # (Manual) Eosinophils # (Manual) Basophils # (Manual) PT INR Fibrinogen dRVVT Confirm Interp Factor V Activity POC ABG pH POC ABG pCO2 POC ABG pO2 ABG pO2 ABG HCO3 ABG Base Excess ABG Hemoglobin Oxyhemoglobin Sodium Potassium Chloride Carbon Dioxide BUN 74 H Creatinine 1.6 H Glucose 135 H POC Glucose 108 H 149 H Lactic Acid Calcium Phosphorus Magnesium Direct Bilirubin AST ALT Alkaline Phosphatase Lactate Dehydrogenase Troponin T C-Reactive Protein Total Protein Albumin Prealbumin Triglycerides Cholesterol LDL Cholesterol Direct HDL Cholesterol Urine pH Urine WBC (Auto) Urine Creatinine Urine Total Protein Fluid Total Protein Vancomycin Trough Rheumatoid Factor Complement C4 Miscellaneous Test Crossmatch 01/06/17 01/07/17 01/07/17 17:17 00:23 05:31 WBC RBC Hgb Hct MCV MCH MCHC RDW Plt Count Lymph % (Auto) [place] % (Auto) Lymph # [place] # Baso # Seg Neutrophils % Seg Neuts % (Manual) Lymphocytes % (Manual) Monocytes % (Manual) Eosinophils % (Manual) Basophils % (Manual) Nucleated RBC % Seg Neutrophils # Seg Neutrophils # Man Lymphocytes # (Manual) Monocytes # (Manual) Eosinophils # (Manual) Basophils # (Manual) PT INR Fibrinogen dRVVT Confirm Interp Factor V Activity POC ABG pH POC ABG pCO2 POC ABG pO2 ABG pO2 ABG HCO3 ABG Base Excess ABG Hemoglobin Oxyhemoglobin Sodium Potassium Chloride Carbon Dioxide BUN Creatinine Glucose POC Glucose 146 H 165 H 153 H Lactic Acid Calcium Phosphorus Magnesium Direct Bilirubin AST ALT Alkaline Phosphatase Lactate Dehydrogenase Troponin T C-Reactive Protein Total Protein Albumin Prealbumin Triglycerides Cholesterol LDL Cholesterol Direct HDL Cholesterol Urine pH Urine WBC (Auto) Urine Creatinine Urine Total Protein Fluid Total Protein Vancomycin Trough Rheumatoid Factor Complement C4 Miscellaneous Test Crossmatch 01/07/17 01/07/17 01/07/17 06:00 11:39 17:11 WBC RBC Hgb Hct MCV MCH MCHC RDW Plt Count Lymph % (Auto) [place] % (Auto) Lymph # [place] # Baso # Seg Neutrophils % Seg Neuts % (Manual) Lymphocytes % (Manual) Monocytes % (Manual) Eosinophils % (Manual) Basophils % (Manual) Nucleated RBC % Seg Neutrophils # Seg Neutrophils # Man Lymphocytes # (Manual) Monocytes # (Manual) Eosinophils # (Manual) Basophils # (Manual) PT INR Fibrinogen dRVVT Confirm Interp Factor V Activity POC ABG pH POC ABG pCO2 POC ABG pO2 ABG pO2 ABG HCO3 ABG Base Excess ABG Hemoglobin Oxyhemoglobin Sodium Potassium Chloride Carbon Dioxide BUN 42 H Creatinine Glucose 175 H POC Glucose 163 H 163 H Lactic Acid Calcium Phosphorus 2.40 L D Magnesium Direct Bilirubin AST ALT Alkaline Phosphatase Lactate Dehydrogenase Troponin T C-Reactive Protein Total Protein Albumin Prealbumin Triglycerides Cholesterol LDL Cholesterol Direct HDL Cholesterol Urine pH Urine WBC (Auto) Urine Creatinine Urine Total Protein Fluid Total Protein Vancomycin Trough Rheumatoid Factor Complement C4 Miscellaneous Test Crossmatch 01/07/17 01/08/17 01/08/17 23:40 05:00 05:00 WBC 27.4 H RBC 2.27 L Hgb 6.1 L Hct 20.4 L MCV MCH 27 L MCHC RDW 17.8 H Plt Count Lymph % (Auto) [place] % (Auto) Lymph # [place] # Baso # Seg Neutrophils % Seg Neuts % (Manual) Lymphocytes % (Manual) Monocytes % (Manual) Eosinophils % (Manual) Basophils % (Manual) Nucleated RBC % Seg Neutrophils # Seg Neutrophils # Man Lymphocytes # (Manual) Monocytes # (Manual) Eosinophils # (Manual) Basophils # (Manual) PT INR Fibrinogen dRVVT Confirm Interp Factor V Activity POC ABG pH POC ABG pCO2 POC ABG pO2 ABG pO2 ABG HCO3 ABG Base Excess ABG Hemoglobin Oxyhemoglobin Sodium Potassium Chloride Carbon Dioxide 16 L D BUN 62 H Creatinine 1.6 H D Glucose 103 H POC Glucose 135 H Lactic Acid Calcium Phosphorus Magnesium Direct Bilirubin AST ALT Alkaline Phosphatase Lactate Dehydrogenase Troponin T C-Reactive Protein Total Protein Albumin Prealbumin Triglycerides Cholesterol LDL Cholesterol Direct HDL Cholesterol Urine pH Urine WBC (Auto) Urine Creatinine Urine Total Protein Fluid Total Protein Vancomycin Trough Rheumatoid Factor Complement C4 Miscellaneous Test Crossmatch 01/08/17 01/08/1717 05:25 10:37 10:37 WBC RBC Hgb Hct MCV MCH MCHC RDW Plt Count Lymph % (Auto) [place] % (Auto) Lymph # [place] # Baso # Seg Neutrophils % Seg Neuts % (Manual) Lymphocytes % (Manual) Monocytes % (Manual) Eosinophils % (Manual) Basophils % (Manual) Nucleated RBC % Seg Neutrophils # Seg Neutrophils # Man Lymphocytes # (Manual) Monocytes # (Manual) Eosinophils # (Manual) Basophils # (Manual) PT INR Fibrinogen dRVVT Confirm Interp Factor V Activity POC ABG pH POC ABG pCO2 POC ABG pO2 ABG pO2 ABG HCO3 ABG Base Excess ABG Hemoglobin Oxyhemoglobin Sodium Potassium Chloride Carbon Dioxide BUN Creatinine Glucose POC Glucose 106 H Lactic Acid Calcium Phosphorus Magnesium Direct Bilirubin AST ALT Alkaline Phosphatase Lactate Dehydrogenase Troponin T C-Reactive Protein 24.40 H Total Protein Albumin Prealbumin Triglycerides Cholesterol LDL Cholesterol Direct HDL Cholesterol Urine pH Urine WBC (Auto) Urine Creatinine Urine Total Protein Fluid Total Protein Vancomycin Trough Rheumatoid Factor Complement C4 Miscellaneous Test Crossmatch See Detail 01/08/17 01/08/17 01/08/17 10:37 11:33 15:15 WBC RBC Hgb Hct MCV MCH MCHC RDW Plt Count Lymph % (Auto) [place] % (Auto) Lymph # [place] # Baso # Seg Neutrophils % Seg Neuts % (Manual) Lymphocytes % (Manual) Monocytes % (Manual) Eosinophils % (Manual) Basophils % (Manual) Nucleated RBC % Seg Neutrophils # Seg Neutrophils # Man Lymphocytes # (Manual) Monocytes # (Manual) Eosinophils # (Manual) Basophils # (Manual) PT INR Fibrinogen dRVVT Confirm Interp Factor V Activity POC ABG pH POC ABG pCO2 POC ABG pO2 ABG pO2 ABG HCO3 ABG Base Excess ABG Hemoglobin Oxyhemoglobin Sodium Potassium Chloride Carbon Dioxide BUN Creatinine Glucose POC Glucose 157 H Lactic Acid 9.70 H* 9.10 H* Calcium Phosphorus Magnesium Direct Bilirubin AST ALT Alkaline Phosphatase Lactate Dehydrogenase Troponin T C-Reactive Protein Total Protein Albumin Prealbumin Triglycerides Cholesterol LDL Cholesterol Direct HDL Cholesterol Urine pH Urine WBC (Auto) Urine Creatinine Urine Total Protein Fluid Total Protein Vancomycin Trough Rheumatoid Factor Complement C4 Miscellaneous Test Crossmatch 01/08/17 01/08/17 01/09/17 17:19 23:12 04:40 WBC RBC Hgb Hct MCV MCH MCHC RDW Plt Count Lymph % (Auto) [place] % (Auto) Lymph # [place] # Baso # Seg Neutrophils % Seg Neuts % (Manual) Lymphocytes % (Manual) Monocytes % (Manual) Eosinophils % (Manual) Basophils % (Manual) Nucleated RBC % Seg Neutrophils # Seg Neutrophils # Man Lymphocytes # (Manual) Monocytes # (Manual) Eosinophils # (Manual) Basophils # (Manual) PT INR Fibrinogen dRVVT Confirm Interp Factor V Activity POC ABG pH POC ABG pCO2 POC ABG pO2 ABG pO2 ABG HCO3 ABG Base Excess ABG Hemoglobin Oxyhemoglobin Sodium 147 H Potassium Chloride Carbon Dioxide BUN 82 H Creatinine 1.8 H Glucose 137 H POC Glucose 164 H 157 H Lactic Acid Calcium Phosphorus Magnesium Direct Bilirubin AST ALT Alkaline Phosphatase Lactate Dehydrogenase Troponin T C-Reactive Protein Total Protein Albumin Prealbumin Triglycerides Cholesterol LDL Cholesterol Direct HDL Cholesterol Urine pH Urine WBC (Auto) Urine Creatinine Urine Total Protein Fluid Total Protein Vancomycin Trough Rheumatoid Factor Complement C4 Miscellaneous Test Crossmatch 01/09/17 01/09/17 01/09/17 05:42 08:22 10:57 WBC RBC Hgb Hct MCV MCH MCHC RDW Plt Count Lymph % (Auto) [place] % (Auto) Lymph # [place] # Baso # Seg Neutrophils % Seg Neuts % (Manual) Lymphocytes % (Manual) Monocytes % (Manual) Eosinophils % (Manual) Basophils % (Manual) Nucleated RBC % Seg Neutrophils # Seg Neutrophils # Man Lymphocytes # (Manual) Monocytes # (Manual) Eosinophils # (Manual) Basophils # (Manual) PT INR Fibrinogen dRVVT Confirm Interp Factor V Activity POC ABG pH POC ABG pCO2 POC ABG pO2 ABG pO2 ABG HCO3 ABG Base Excess ABG Hemoglobin Oxyhemoglobin Sodium Potassium Chloride Carbon Dioxide BUN Creatinine Glucose POC Glucose 156 H 122 H Lactic Acid 2.30 H* Calcium Phosphorus Magnesium Direct Bilirubin AST ALT Alkaline Phosphatase Lactate Dehydrogenase Troponin T C-Reactive Protein Total Protein Albumin Prealbumin Triglycerides Cholesterol LDL Cholesterol Direct HDL Cholesterol Urine pH Urine WBC (Auto) Urine Creatinine Urine Total Protein Fluid Total Protein Vancomycin Trough Rheumatoid Factor Complement C4 Miscellaneous Test Crossmatch 01/09/17 01/09/17 01/09/17 13:30 17:14 18:45 WBC RBC Hgb Hct MCV MCH MCHC RDW Plt Count Lymph % (Auto) [place] % (Auto) Lymph # [place] # Baso # Seg Neutrophils % Seg Neuts % (Manual) Lymphocytes % (Manual) Monocytes % (Manual) Eosinophils % (Manual) Basophils % (Manual) Nucleated RBC % Seg Neutrophils # Seg Neutrophils # Man Lymphocytes # (Manual) Monocytes # (Manual) Eosinophils # (Manual) Basophils # (Manual) PT INR Fibrinogen dRVVT Confirm Interp Factor V Activity POC ABG pH POC ABG pCO2 POC ABG pO2 ABG pO2 ABG HCO3 ABG Base Excess ABG Hemoglobin Oxyhemoglobin Sodium Potassium Chloride Carbon Dioxide BUN Creatinine Glucose POC Glucose 127 H Lactic Acid Calcium Phosphorus Magnesium Direct Bilirubin AST ALT Alkaline Phosphatase Lactate Dehydrogenase Troponin T C-Reactive Protein 24.70 H Total Protein Albumin Prealbumin Triglycerides Cholesterol LDL Cholesterol Direct HDL Cholesterol Urine pH Urine WBC (Auto) Urine Creatinine Urine Total Protein Fluid Total Protein Vancomycin Trough Rheumatoid Factor Complement C4 Miscellaneous Test Flexitest 1 H Crossmatch 01/10/17 01/10/17 01/10/17 01:21 04:00 04:00 WBC 18.1 H RBC 3.22 L Hgb 8.8 L Hct 27.0 L D MCV MCH 27 L MCHC RDW 17.0 H Plt Count Lymph % (Auto) [place] % (Auto) Lymph # [place] # Baso # Seg Neutrophils % Seg Neuts % (Manual) Lymphocytes % (Manual) Monocytes % (Manual) Eosinophils % (Manual) Basophils % (Manual) Nucleated RBC % Seg Neutrophils # Seg Neutrophils # Man Lymphocytes # (Manual) Monocytes # (Manual) Eosinophils # (Manual) Basophils # (Manual) PT INR Fibrinogen dRVVT Confirm Interp Factor V Activity POC ABG pH POC ABG pCO2 POC ABG pO2 ABG pO2 ABG HCO3 ABG Base Excess ABG Hemoglobin Oxyhemoglobin Sodium Potassium Chloride Carbon Dioxide BUN 59 H Creatinine 1.3 H Glucose 122 H POC Glucose 160 H Lactic Acid Calcium Phosphorus Magnesium Direct Bilirubin AST ALT Alkaline Phosphatase Lactate Dehydrogenase Troponin T C-Reactive Protein Total Protein Albumin Prealbumin Triglycerides Cholesterol LDL Cholesterol Direct HDL Cholesterol Urine pH Urine WBC (Auto) Urine Creatinine Urine Total Protein Fluid Total Protein Vancomycin Trough Rheumatoid Factor Complement C4 Miscellaneous Test Crossmatch 01/10/17 01/10/17 01/10/17 05:36 12:14 17:55 WBC RBC Hgb Hct MCV MCH MCHC RDW Plt Count Lymph % (Auto) [place] % (Auto) Lymph # [place] # Baso # Seg Neutrophils % Seg Neuts % (Manual) Lymphocytes % (Manual) Monocytes % (Manual) Eosinophils % (Manual) Basophils % (Manual) Nucleated RBC % Seg Neutrophils # Seg Neutrophils # Man Lymphocytes # (Manual) Monocytes # (Manual) Eosinophils # (Manual) Basophils # (Manual) PT INR Fibrinogen dRVVT Confirm Interp Factor V Activity POC ABG pH POC ABG pCO2 POC ABG pO2 ABG pO2 ABG HCO3 ABG Base Excess ABG Hemoglobin Oxyhemoglobin Sodium Potassium Chloride Carbon Dioxide BUN Creatinine Glucose POC Glucose 163 H 120 H 144 H Lactic Acid Calcium Phosphorus Magnesium Direct Bilirubin AST ALT Alkaline Phosphatase Lactate Dehydrogenase Troponin T C-Reactive Protein Total Protein Albumin Prealbumin Triglycerides Cholesterol LDL Cholesterol Direct HDL Cholesterol Urine pH Urine WBC (Auto) Urine Creatinine Urine Total Protein Fluid Total Protein Vancomycin Trough Rheumatoid Factor Complement C4 Miscellaneous Test Crossmatch 01/11/17 01/11/17 01/11/17 00:09 04:00 04:00 WBC 15.8 H RBC 3.04 L Hgb 8.2 L Hct 25.5 L MCV MCH 27 L MCHC RDW 17.3 H Plt Count Lymph % (Auto) [place] % (Auto) Lymph # [place] # Baso # Seg Neutrophils % Seg Neuts % (Manual) Lymphocytes % (Manual) Monocytes % (Manual) Eosinophils % (Manual) Basophils % (Manual) Nucleated RBC % Seg Neutrophils # Seg Neutrophils # Man Lymphocytes # (Manual) Monocytes # (Manual) Eosinophils # (Manual) Basophils # (Manual) PT INR Fibrinogen dRVVT Confirm Interp Factor V Activity POC ABG pH POC ABG pCO2 POC ABG pO2 ABG pO2 ABG HCO3 ABG Base Excess ABG Hemoglobin Oxyhemoglobin Sodium Potassium Chloride Carbon Dioxide BUN 78 H Creatinine 1.6 H Glucose 109 H POC Glucose 122 H Lactic Acid Calcium Phosphorus Magnesium Direct Bilirubin AST ALT Alkaline Phosphatase Lactate Dehydrogenase Troponin T C-Reactive Protein Total Protein Albumin Prealbumin Triglycerides Cholesterol LDL Cholesterol Direct HDL Cholesterol Urine pH Urine WBC (Auto) Urine Creatinine Urine Total Protein Fluid Total Protein Vancomycin Trough Rheumatoid Factor Complement C4 Miscellaneous Test Crossmatch 01/11/17 01/11/17 01/11/17 12:46 18:23 23:42 WBC RBC Hgb Hct MCV MCH MCHC RDW Plt Count Lymph % (Auto) [place] % (Auto) Lymph # [place] # Baso # Seg Neutrophils % Seg Neuts % (Manual) Lymphocytes % (Manual) Monocytes % (Manual) Eosinophils % (Manual) Basophils % (Manual) Nucleated RBC % Seg Neutrophils # Seg Neutrophils # Man Lymphocytes # (Manual) Monocytes # (Manual) Eosinophils # (Manual) Basophils # (Manual) PT INR Fibrinogen dRVVT Confirm Interp Factor V Activity POC ABG pH POC ABG pCO2 POC ABG pO2 ABG pO2 ABG HCO3 ABG Base Excess ABG Hemoglobin Oxyhemoglobin Sodium Potassium Chloride Carbon Dioxide BUN Creatinine Glucose POC Glucose 148 H 125 H 124 H Lactic Acid Calcium Phosphorus Magnesium Direct Bilirubin AST ALT Alkaline Phosphatase Lactate Dehydrogenase Troponin T C-Reactive Protein Total Protein Albumin Prealbumin Triglycerides Cholesterol LDL Cholesterol Direct HDL Cholesterol Urine pH Urine WBC (Auto) Urine Creatinine Urine Total Protein Fluid Total Protein Vancomycin Trough Rheumatoid Factor Complement C4 Miscellaneous Test Crossmatch 01/12/17 01/12/17 01/12/17 04:30 04:30 05:47 WBC 15.8 H RBC 3.31 L Hgb 8.9 L Hct 27.9 L MCV MCH 27 L MCHC RDW 17.4 H Plt Count Lymph % (Auto) [place] % (Auto) Lymph # [place] # Baso # Seg Neutrophils % Seg Neuts % (Manual) Lymphocytes % (Manual) Monocytes % (Manual) Eosinophils % (Manual) Basophils % (Manual) Nucleated RBC % Seg Neutrophils # Seg Neutrophils # Man Lymphocytes # (Manual) Monocytes # (Manual) Eosinophils # (Manual) Basophils # (Manual) PT INR Fibrinogen dRVVT Confirm Interp Factor V Activity POC ABG pH POC ABG pCO2 POC ABG pO2 ABG pO2 ABG HCO3 ABG Base Excess ABG Hemoglobin Oxyhemoglobin Sodium Potassium Chloride Carbon Dioxide BUN 57 H Creatinine Glucose 121 H POC Glucose 110 H Lactic Acid Calcium Phosphorus 2.10 L Magnesium Direct Bilirubin AST ALT Alkaline Phosphatase Lactate Dehydrogenase Troponin T C-Reactive Protein Total Protein Albumin Prealbumin Triglycerides Cholesterol LDL Cholesterol Direct HDL Cholesterol Urine pH Urine WBC (Auto) Urine Creatinine Urine Total Protein Fluid Total Protein Vancomycin Trough Rheumatoid Factor Complement C4 Miscellaneous Test Crossmatch 01/12/17 01/12/17 01/12/17 11:35 17:45 23:14 WBC RBC Hgb Hct MCV MCH MCHC RDW Plt Count Lymph % (Auto) [place] % (Auto) Lymph # [place] # Baso # Seg Neutrophils % Seg Neuts % (Manual) Lymphocytes % (Manual) Monocytes % (Manual) Eosinophils % (Manual) Basophils % (Manual) Nucleated RBC % Seg Neutrophils # Seg Neutrophils # Man Lymphocytes # (Manual) Monocytes # (Manual) Eosinophils # (Manual) Basophils # (Manual) PT INR Fibrinogen dRVVT Confirm Interp Factor V Activity POC ABG pH POC ABG pCO2 POC ABG pO2 ABG pO2 ABG HCO3 ABG Base Excess ABG Hemoglobin Oxyhemoglobin Sodium Potassium Chloride Carbon Dioxide BUN Creatinine Glucose POC Glucose 146 H 117 H 123 H Lactic Acid Calcium Phosphorus Magnesium Direct Bilirubin AST ALT Alkaline Phosphatase Lactate Dehydrogenase Troponin T C-Reactive Protein Total Protein Albumin Prealbumin Triglycerides Cholesterol LDL Cholesterol Direct HDL Cholesterol Urine pH Urine WBC (Auto) Urine Creatinine Urine Total Protein Fluid Total Protein Vancomycin Trough Rheumatoid Factor Complement C4 Miscellaneous Test Crossmatch 01/13/17 01/13/17 01/13/17 05:32 06:00 12:10 WBC RBC Hgb Hct MCV MCH MCHC RDW Plt Count Lymph % (Auto) [place] % (Auto) Lymph # [place] # Baso # Seg Neutrophils % Seg Neuts % (Manual) Lymphocytes % (Manual) Monocytes % (Manual) Eosinophils % (Manual) Basophils % (Manual) Nucleated RBC % Seg Neutrophils # Seg Neutrophils # Man Lymphocytes # (Manual) Monocytes # (Manual) Eosinophils # (Manual) Basophils # (Manual) PT INR Fibrinogen dRVVT Confirm Interp Factor V Activity POC ABG pH POC ABG pCO2 POC ABG pO2 ABG pO2 ABG HCO3 ABG Base Excess ABG Hemoglobin Oxyhemoglobin Sodium Potassium Chloride Carbon Dioxide BUN 80 H Creatinine 1.4 H Glucose 106 H POC Glucose 106 H Lactic Acid Calcium Phosphorus Magnesium Direct Bilirubin AST ALT Alkaline Phosphatase Lactate Dehydrogenase Troponin T C-Reactive Protein Total Protein Albumin Prealbumin Triglycerides Cholesterol LDL Cholesterol Direct HDL Cholesterol Urine pH Urine WBC (Auto) Urine Creatinine Urine Total Protein Fluid Total Protein 3.0 L Vancomycin Trough Rheumatoid Factor Complement C4 Miscellaneous Test Crossmatch 01/13/17 01/13/17 01/13/17 12:17 15:50 17:30 WBC RBC Hgb Hct MCV MCH MCHC RDW Plt Count Lymph % (Auto) [place] % (Auto) Lymph # [place] # Baso # Seg Neutrophils % Seg Neuts % (Manual) Lymphocytes % (Manual) Monocytes % (Manual) Eosinophils % (Manual) Basophils % (Manual) Nucleated RBC % Seg Neutrophils # Seg Neutrophils # Man Lymphocytes # (Manual) Monocytes # (Manual) Eosinophils # (Manual) Basophils # (Manual) PT 15.4 H INR 1.16 H Fibrinogen dRVVT Confirm Interp Factor V Activity POC ABG pH POC ABG pCO2 POC ABG pO2 ABG pO2 ABG HCO3 ABG Base Excess ABG Hemoglobin Oxyhemoglobin Sodium Potassium Chloride Carbon Dioxide BUN Creatinine Glucose POC Glucose 168 H 110 H Lactic Acid Calcium Phosphorus Magnesium Direct Bilirubin AST ALT Alkaline Phosphatase Lactate Dehydrogenase Troponin T C-Reactive Protein Total Protein Albumin Prealbumin Triglycerides Cholesterol LDL Cholesterol Direct HDL Cholesterol Urine pH Urine WBC (Auto) Urine Creatinine Urine Total Protein Fluid Total Protein Vancomycin Trough Rheumatoid Factor Complement C4 Miscellaneous Test Crossmatch 01/13/17 01/14/17 01/14/17 23:42 05:24 05:30 WBC RBC Hgb Hct MCV MCH MCHC RDW Plt Count Lymph % (Auto) [place] % (Auto) Lymph # [place] # Baso # Seg Neutrophils % Seg Neuts % (Manual) Lymphocytes % (Manual) Monocytes % (Manual) Eosinophils % (Manual) Basophils % (Manual) Nucleated RBC % Seg Neutrophils # Seg Neutrophils # Man Lymphocytes # (Manual) Monocytes # (Manual) Eosinophils # (Manual) Basophils # (Manual) PT INR Fibrinogen dRVVT Confirm Interp Factor V Activity POC ABG pH POC ABG pCO2 POC ABG pO2 ABG pO2 ABG HCO3 ABG Base Excess ABG Hemoglobin Oxyhemoglobin Sodium Potassium Chloride Carbon Dioxide BUN 58 H Creatinine Glucose 114 H POC Glucose 155 H 121 H Lactic Acid Calcium Phosphorus Magnesium Direct Bilirubin AST ALT Alkaline Phosphatase Lactate Dehydrogenase Troponin T C-Reactive Protein Total Protein Albumin Prealbumin Triglycerides Cholesterol LDL Cholesterol Direct HDL Cholesterol Urine pH Urine WBC (Auto) Urine Creatinine Urine Total Protein Fluid Total Protein Vancomycin Trough Rheumatoid Factor Complement C4 Miscellaneous Test Crossmatch 01/14/17 01/14/17 01/15/17 12:48 17:36 00:15 WBC RBC Hgb Hct MCV MCH MCHC RDW Plt Count Lymph % (Auto) [place] % (Auto) Lymph # [place] # Baso # Seg Neutrophils % Seg Neuts % (Manual) Lymphocytes % (Manual) Monocytes % (Manual) Eosinophils % (Manual) Basophils % (Manual) Nucleated RBC % Seg Neutrophils # Seg Neutrophils # Man Lymphocytes # (Manual) Monocytes # (Manual) Eosinophils # (Manual) Basophils # (Manual) PT INR Fibrinogen dRVVT Confirm Interp Factor V Activity POC ABG pH POC ABG pCO2 POC ABG pO2 ABG pO2 ABG HCO3 ABG Base Excess ABG Hemoglobin Oxyhemoglobin Sodium Potassium Chloride Carbon Dioxide BUN Creatinine Glucose POC Glucose 130 H 135 H 132 H Lactic Acid Calcium Phosphorus Magnesium Direct Bilirubin AST ALT Alkaline Phosphatase Lactate Dehydrogenase Troponin T C-Reactive Protein Total Protein Albumin Prealbumin Triglycerides Cholesterol LDL Cholesterol Direct HDL Cholesterol Urine pH Urine WBC (Auto) Urine Creatinine Urine Total Protein Fluid Total Protein Vancomycin Trough Rheumatoid Factor Complement C4 Miscellaneous Test Crossmatch 01/15/17 01/15/17 01/15/17 05:01 11:55 12:45 WBC 16.2 H RBC 3.00 L Hgb 8.1 L Hct 25.4 L MCV MCH 27 L MCHC RDW 17.6 H Plt Count Lymph % (Auto) 11.7 L [place] % (Auto) 7.8 H Lymph # [place] # 1.3 H Baso # Seg Neutrophils % 80.1 H Seg Neuts % (Manual) Lymphocytes % (Manual) Monocytes % (Manual) Eosinophils % (Manual) Basophils % (Manual) Nucleated RBC % Seg Neutrophils # 13.0 H Seg Neutrophils # Man Lymphocytes # (Manual) Monocytes # (Manual) Eosinophils # (Manual) Basophils # (Manual) PT INR Fibrinogen dRVVT Confirm Interp Factor V Activity POC ABG pH POC ABG pCO2 POC ABG pO2 ABG pO2 ABG HCO3 ABG Base Excess ABG Hemoglobin Oxyhemoglobin Sodium Potassium Chloride Carbon Dioxide BUN Creatinine Glucose POC Glucose 126 H 125 H Lactic Acid Calcium Phosphorus Magnesium Direct Bilirubin AST ALT Alkaline Phosphatase Lactate Dehydrogenase Troponin T C-Reactive Protein Total Protein Albumin Prealbumin Triglycerides Cholesterol LDL Cholesterol Direct HDL Cholesterol Urine pH Urine WBC (Auto) Urine Creatinine Urine Total Protein Fluid Total Protein Vancomycin Trough Rheumatoid Factor Complement C4 Miscellaneous Test Crossmatch 01/15/17 01/15/17 01/15/17 12:45 17:31 23:39 WBC RBC Hgb Hct MCV MCH MCHC RDW Plt Count Lymph % (Auto) [place] % (Auto) Lymph # [place] # Baso # Seg Neutrophils % Seg Neuts % (Manual) Lymphocytes % (Manual) Monocytes % (Manual) Eosinophils % (Manual) Basophils % (Manual) Nucleated RBC % Seg Neutrophils # Seg Neutrophils # Man Lymphocytes # (Manual) Monocytes # (Manual) Eosinophils # (Manual) Basophils # (Manual) PT INR Fibrinogen dRVVT Confirm Interp Factor V Activity POC ABG pH POC ABG pCO2 POC ABG pO2 ABG pO2 ABG HCO3 ABG Base Excess ABG Hemoglobin Oxyhemoglobin Sodium 136 L Potassium Chloride Carbon Dioxide BUN 87 H Creatinine 1.7 H Glucose 108 H POC Glucose 129 H 112 H Lactic Acid Calcium Phosphorus Magnesium Direct Bilirubin AST ALT Alkaline Phosphatase Lactate Dehydrogenase Troponin T C-Reactive Protein Total Protein Albumin Prealbumin Triglycerides Cholesterol LDL Cholesterol Direct HDL Cholesterol Urine pH Urine WBC (Auto) Urine Creatinine Urine Total Protein Fluid Total Protein Vancomycin Trough Rheumatoid Factor Complement C4 Miscellaneous Test Crossmatch 01/16/17 01/16/17 01/16/17 05:23 11:42 12:32 WBC RBC Hgb Hct MCV MCH MCHC RDW Plt Count Lymph % (Auto) [place] % (Auto) Lymph # [place] # Baso # Seg Neutrophils % Seg Neuts % (Manual) Lymphocytes % (Manual) Monocytes % (Manual) Eosinophils % (Manual) Basophils % (Manual) Nucleated RBC % Seg Neutrophils # Seg Neutrophils # Man Lymphocytes # (Manual) Monocytes # (Manual) Eosinophils # (Manual) Basophils # (Manual) PT INR Fibrinogen dRVVT Confirm Interp Factor V Activity POC ABG pH 7.499 H POC ABG pCO2 30.9 L POC ABG pO2 51 L ABG pO2 ABG HCO3 ABG Base Excess ABG Hemoglobin Oxyhemoglobin Sodium Potassium Chloride Carbon Dioxide BUN Creatinine Glucose POC Glucose 118 H 133 H Lactic Acid Calcium Phosphorus Magnesium Direct Bilirubin AST ALT Alkaline Phosphatase Lactate Dehydrogenase Troponin T C-Reactive Protein Total Protein Albumin Prealbumin Triglycerides Cholesterol LDL Cholesterol Direct HDL Cholesterol Urine pH Urine WBC (Auto) Urine Creatinine Urine Total Protein Fluid Total Protein Vancomycin Trough Rheumatoid Factor Complement C4 Miscellaneous Test Crossmatch 01/16/17 01/16/17 01/16/17 17:52 23:57 Unknown WBC RBC Hgb Hct MCV MCH MCHC RDW Plt Count Lymph % (Auto) [place] % (Auto) Lymph # [place] # Baso # Seg Neutrophils % Seg Neuts % (Manual) Lymphocytes % (Manual) Monocytes % (Manual) Eosinophils % (Manual) Basophils % (Manual) Nucleated RBC % Seg Neutrophils # Seg Neutrophils # Man Lymphocytes # (Manual) Monocytes # (Manual) Eosinophils # (Manual) Basophils # (Manual) PT INR Fibrinogen dRVVT Confirm Interp Factor V Activity POC ABG pH POC ABG pCO2 POC ABG pO2 ABG pO2 ABG HCO3 ABG Base Excess ABG Hemoglobin Oxyhemoglobin Sodium 135 L Potassium Chloride Carbon Dioxide BUN 101 H Creatinine 1.8 H Glucose 117 H POC Glucose 130 H 143 H Lactic Acid Calcium Phosphorus 5.80 H Magnesium Direct Bilirubin AST ALT Alkaline Phosphatase Lactate Dehydrogenase Troponin T C-Reactive Protein Total Protein Albumin Prealbumin Triglycerides Cholesterol LDL Cholesterol Direct HDL Cholesterol Urine pH Urine WBC (Auto) Urine Creatinine Urine Total Protein Fluid Total Protein Vancomycin Trough Rheumatoid Factor Complement C4 Miscellaneous Test Crossmatch 01/17/17 01/17/17 01/17/17 05:30 05:46 11:49 WBC RBC Hgb Hct MCV MCH MCHC RDW Plt Count Lymph % (Auto) [place] % (Auto) Lymph # [place] # Baso # Seg Neutrophils % Seg Neuts % (Manual) Lymphocytes % (Manual) Monocytes % (Manual) Eosinophils % (Manual) Basophils % (Manual) Nucleated RBC % Seg Neutrophils # Seg Neutrophils # Man Lymphocytes # (Manual) Monocytes # (Manual) Eosinophils # (Manual) Basophils # (Manual) PT INR Fibrinogen dRVVT Confirm Interp Factor V Activity POC ABG pH POC ABG pCO2 POC ABG pO2 ABG pO2 ABG HCO3 ABG Base Excess ABG Hemoglobin Oxyhemoglobin Sodium 134 L Potassium Chloride 95.8 L Carbon Dioxide BUN 66 H Creatinine 1.3 H Glucose 138 H POC Glucose 147 H 124 H Lactic Acid Calcium Phosphorus Magnesium Direct Bilirubin AST ALT Alkaline Phosphatase 254 H Lactate Dehydrogenase Troponin T C-Reactive Protein Total Protein Albumin 1.3 L Prealbumin Triglycerides Cholesterol LDL Cholesterol Direct HDL Cholesterol Urine pH Urine WBC (Auto) Urine Creatinine Urine Total Protein Fluid Total Protein Vancomycin Trough Rheumatoid Factor Complement C4 Miscellaneous Test Crossmatch 01/17/17 01/17/17 01/18/17 17:30 23:41 05:15 WBC RBC Hgb Hct MCV MCH MCHC RDW Plt Count Lymph % (Auto) [place] % (Auto) Lymph # [place] # Baso # Seg Neutrophils % Seg Neuts % (Manual) Lymphocytes % (Manual) Monocytes % (Manual) Eosinophils % (Manual) Basophils % (Manual) Nucleated RBC % Seg Neutrophils # Seg Neutrophils # Man Lymphocytes # (Manual) Monocytes # (Manual) Eosinophils # (Manual) Basophils # (Manual) PT INR Fibrinogen dRVVT Confirm Interp Factor V Activity POC ABG pH POC ABG pCO2 POC ABG pO2 ABG pO2 ABG HCO3 ABG Base Excess ABG Hemoglobin Oxyhemoglobin Sodium Potassium Chloride Carbon Dioxide BUN 89 H Creatinine 1.7 H Glucose 118 H POC Glucose 137 H 119 H Lactic Acid Calcium Phosphorus Magnesium Direct Bilirubin AST ALT Alkaline Phosphatase Lactate Dehydrogenase Troponin T C-Reactive Protein Total Protein Albumin Prealbumin Triglycerides Cholesterol LDL Cholesterol Direct HDL Cholesterol Urine pH Urine WBC (Auto) Urine Creatinine Urine Total Protein Fluid Total Protein Vancomycin Trough Rheumatoid Factor Complement C4 Miscellaneous Test Crossmatch 01/18/17 01/18/17 01/18/17 05:19 12:16 18:11 WBC RBC Hgb Hct MCV MCH MCHC RDW Plt Count Lymph % (Auto) [place] % (Auto) Lymph # [place] # Baso # Seg Neutrophils % Seg Neuts % (Manual) Lymphocytes % (Manual) Monocytes % (Manual) Eosinophils % (Manual) Basophils % (Manual) Nucleated RBC % Seg Neutrophils # Seg Neutrophils # Man Lymphocytes # (Manual) Monocytes # (Manual) Eosinophils # (Manual) Basophils # (Manual) PT INR Fibrinogen dRVVT Confirm Interp Factor V Activity POC ABG pH POC ABG pCO2 POC ABG pO2 ABG pO2 ABG HCO3 ABG Base Excess ABG Hemoglobin Oxyhemoglobin Sodium Potassium Chloride Carbon Dioxide BUN Creatinine Glucose POC Glucose 134 H 188 H 113 H Lactic Acid Calcium Phosphorus Magnesium Direct Bilirubin AST ALT Alkaline Phosphatase Lactate Dehydrogenase Troponin T C-Reactive Protein Total Protein Albumin Prealbumin Triglycerides Cholesterol LDL Cholesterol Direct HDL Cholesterol Urine pH Urine WBC (Auto) Urine Creatinine Urine Total Protein Fluid Total Protein Vancomycin Trough Rheumatoid Factor Complement C4 Miscellaneous Test Crossmatch 01/19/17 01/19/17 01/19/17 00:00 05:30 05:36 WBC RBC Hgb Hct MCV MCH MCHC RDW Plt Count Lymph % (Auto) [place] % (Auto) Lymph # [place] # Baso # Seg Neutrophils % Seg Neuts % (Manual) Lymphocytes % (Manual) Monocytes % (Manual) Eosinophils % (Manual) Basophils % (Manual) Nucleated RBC % Seg Neutrophils # Seg Neutrophils # Man Lymphocytes # (Manual) Monocytes # (Manual) Eosinophils # (Manual) Basophils # (Manual) PT INR Fibrinogen dRVVT Confirm Interp Factor V Activity POC ABG pH POC ABG pCO2 POC ABG pO2 ABG pO2 ABG HCO3 ABG Base Excess ABG Hemoglobin Oxyhemoglobin Sodium Potassium Chloride Carbon Dioxide BUN 70 H Creatinine 1.5 H Glucose 121 H POC Glucose 137 H 155 H Lactic Acid Calcium Phosphorus 2.10 L D Magnesium Direct Bilirubin AST ALT Alkaline Phosphatase Lactate Dehydrogenase Troponin T C-Reactive Protein Total Protein Albumin Prealbumin Triglycerides Cholesterol LDL Cholesterol Direct HDL Cholesterol Urine pH Urine WBC (Auto) Urine Creatinine Urine Total Protein Fluid Total Protein Vancomycin Trough Rheumatoid Factor Complement C4 Miscellaneous Test Crossmatch 01/19/17 01/19/17 01/19/17 11:59 15:32 17:57 WBC RBC Hgb Hct MCV MCH MCHC RDW Plt Count Lymph % (Auto) [place] % (Auto) Lymph # [place] # Baso # Seg Neutrophils % Seg Neuts % (Manual) Lymphocytes % (Manual) Monocytes % (Manual) Eosinophils % (Manual) Basophils % (Manual) Nucleated RBC % Seg Neutrophils # Seg Neutrophils # Man Lymphocytes # (Manual) Monocytes # (Manual) Eosinophils # (Manual) Basophils # (Manual) PT INR Fibrinogen dRVVT Confirm Interp Factor V Activity POC ABG pH POC ABG pCO2 33.1 L POC ABG pO2 76 L ABG pO2 ABG HCO3 ABG Base Excess ABG Hemoglobin Oxyhemoglobin Sodium Potassium Chloride Carbon Dioxide BUN Creatinine Glucose POC Glucose 156 H 129 H Lactic Acid Calcium Phosphorus Magnesium Direct Bilirubin AST ALT Alkaline Phosphatase Lactate Dehydrogenase Troponin T C-Reactive Protein Total Protein Albumin Prealbumin Triglycerides Cholesterol LDL Cholesterol Direct HDL Cholesterol Urine pH Urine WBC (Auto) Urine Creatinine Urine Total Protein Fluid Total Protein Vancomycin Trough Rheumatoid Factor Complement C4 Miscellaneous Test Crossmatch 01/19/17 01/20/17 01/20/17 23:49 04:00 05:21 WBC RBC Hgb Hct MCV MCH MCHC RDW Plt Count Lymph % (Auto) [place] % (Auto) Lymph # [place] # Baso # Seg Neutrophils % Seg Neuts % (Manual) Lymphocytes % (Manual) Monocytes % (Manual) Eosinophils % (Manual) Basophils % (Manual) Nucleated RBC % Seg Neutrophils # Seg Neutrophils # Man Lymphocytes # (Manual) Monocytes # (Manual) Eosinophils # (Manual) Basophils # (Manual) PT INR Fibrinogen dRVVT Confirm Interp Factor V Activity POC ABG pH POC ABG pCO2 POC ABG pO2 ABG pO2 ABG HCO3 ABG Base Excess ABG Hemoglobin Oxyhemoglobin Sodium Potassium Chloride Carbon Dioxide BUN 96 H Creatinine 1.9 H Glucose 106 H POC Glucose 125 H 130 H Lactic Acid Calcium Phosphorus 2.40 L Magnesium Direct Bilirubin AST ALT Alkaline Phosphatase Lactate Dehydrogenase Troponin T C-Reactive Protein Total Protein Albumin Prealbumin Triglycerides Cholesterol LDL Cholesterol Direct HDL Cholesterol Urine pH Urine WBC (Auto) Urine Creatinine Urine Total Protein Fluid Total Protein Vancomycin Trough Rheumatoid Factor Complement C4 Miscellaneous Test Crossmatch 01/20/17 01/20/17 01/20/17 11:58 12:17 17:26 WBC RBC Hgb Hct MCV MCH MCHC RDW Plt Count Lymph % (Auto) [place] % (Auto) Lymph # [place] # Baso # Seg Neutrophils % Seg Neuts % (Manual) Lymphocytes % (Manual) Monocytes % (Manual) Eosinophils % (Manual) Basophils % (Manual) Nucleated RBC % Seg Neutrophils # Seg Neutrophils # Man Lymphocytes # (Manual) Monocytes # (Manual) Eosinophils # (Manual) Basophils # (Manual) PT INR Fibrinogen dRVVT Confirm Interp Factor V Activity POC ABG pH POC ABG pCO2 POC ABG pO2 70 L ABG pO2 ABG HCO3 ABG Base Excess ABG Hemoglobin Oxyhemoglobin Sodium Potassium Chloride Carbon Dioxide BUN Creatinine Glucose POC Glucose 118 H 154 H Lactic Acid Calcium Phosphorus Magnesium Direct Bilirubin AST ALT Alkaline Phosphatase Lactate Dehydrogenase Troponin T C-Reactive Protein Total Protein Albumin Prealbumin Triglycerides Cholesterol LDL Cholesterol Direct HDL Cholesterol Urine pH Urine WBC (Auto) Urine Creatinine Urine Total Protein Fluid Total Protein Vancomycin Trough Rheumatoid Factor Complement C4 Miscellaneous Test Crossmatch 01/21/17 01/21/17 01/21/17 04:00 04:56 11:46 WBC RBC Hgb Hct MCV MCH MCHC RDW Plt Count Lymph % (Auto) [place] % (Auto) Lymph # [place] # Baso # Seg Neutrophils % Seg Neuts % (Manual) Lymphocytes % (Manual) Monocytes % (Manual) Eosinophils % (Manual) Basophils % (Manual) Nucleated RBC % Seg Neutrophils # Seg Neutrophils # Man Lymphocytes # (Manual) Monocytes # (Manual) Eosinophils # (Manual) Basophils # (Manual) PT INR Fibrinogen dRVVT Confirm Interp Factor V Activity POC ABG pH POC ABG pCO2 POC ABG pO2 ABG pO2 ABG HCO3 ABG Base Excess ABG Hemoglobin Oxyhemoglobin Sodium Potassium 3.5 L Chloride 97.4 L Carbon Dioxide BUN 66 H Creatinine 1.4 H Glucose POC Glucose 116 H 106 H Lactic Acid Calcium Phosphorus 2.10 L Magnesium Direct Bilirubin AST ALT Alkaline Phosphatase Lactate Dehydrogenase Troponin T C-Reactive Protein Total Protein Albumin Prealbumin Triglycerides Cholesterol LDL Cholesterol Direct HDL Cholesterol Urine pH Urine WBC (Auto) Urine Creatinine Urine Total Protein Fluid Total Protein Vancomycin Trough Rheumatoid Factor Complement C4 Miscellaneous Test Crossmatch 01/21/17 01/21/17 01/22/17 17:25 23:49 05:35 WBC RBC Hgb Hct MCV MCH MCHC RDW Plt Count Lymph % (Auto) [place] % (Auto) Lymph # [place] # Baso # Seg Neutrophils % Seg Neuts % (Manual) Lymphocytes % (Manual) Monocytes % (Manual) Eosinophils % (Manual) Basophils % (Manual) Nucleated RBC % Seg Neutrophils # Seg Neutrophils # Man Lymphocytes # (Manual) Monocytes # (Manual) Eosinophils # (Manual) Basophils # (Manual) PT INR Fibrinogen dRVVT Confirm Interp Factor V Activity POC ABG pH POC ABG pCO2 POC ABG pO2 ABG pO2 ABG HCO3 ABG Base Excess ABG Hemoglobin Oxyhemoglobin Sodium Potassium Chloride Carbon Dioxide BUN Creatinine Glucose POC Glucose 106 H 133 H 107 H Lactic Acid Calcium Phosphorus Magnesium Direct Bilirubin AST ALT Alkaline Phosphatase Lactate Dehydrogenase Troponin T C-Reactive Protein Total Protein Albumin Prealbumin Triglycerides Cholesterol LDL Cholesterol Direct HDL Cholesterol Urine pH Urine WBC (Auto) Urine Creatinine Urine Total Protein Fluid Total Protein Vancomycin Trough Rheumatoid Factor Complement C4 Miscellaneous Test Crossmatch 01/22/17 01/22/17 01/22/17 07:20 07:20 11:31 WBC RBC 2.75 L Hgb 7.5 L Hct 22.7 L MCV MCH 27 L MCHC RDW 17.5 H Plt Count Lymph % (Auto) [place] % (Auto) Lymph # [place] # Baso # Seg Neutrophils % Seg Neuts % (Manual) Lymphocytes % (Manual) Monocytes % (Manual) Eosinophils % (Manual) Basophils % (Manual) Nucleated RBC % Seg Neutrophils # Seg Neutrophils # Man Lymphocytes # (Manual) Monocytes # (Manual) Eosinophils # (Manual) Basophils # (Manual) PT INR Fibrinogen dRVVT Confirm Interp Factor V Activity POC ABG pH POC ABG pCO2 POC ABG pO2 ABG pO2 ABG HCO3 ABG Base Excess ABG Hemoglobin Oxyhemoglobin Sodium Potassium 3.3 L Chloride Carbon Dioxide BUN 42 H Creatinine Glucose 105 H POC Glucose 124 H Lactic Acid Calcium Phosphorus 1.70 L Magnesium Direct Bilirubin AST ALT Alkaline Phosphatase Lactate Dehydrogenase Troponin T C-Reactive Protein Total Protein Albumin Prealbumin Triglycerides Cholesterol LDL Cholesterol Direct HDL Cholesterol Urine pH Urine WBC (Auto) Urine Creatinine Urine Total Protein Fluid Total Protein Vancomycin Trough Rheumatoid Factor Complement C4 Miscellaneous Test Crossmatch 01/22/17 01/22/17 01/23/17 17:16 23:35 05:35 WBC RBC Hgb Hct MCV MCH MCHC RDW Plt Count Lymph % (Auto) [place] % (Auto) Lymph # [place] # Baso # Seg Neutrophils % Seg Neuts % (Manual) Lymphocytes % (Manual) Monocytes % (Manual) Eosinophils % (Manual) Basophils % (Manual) Nucleated RBC % Seg Neutrophils # Seg Neutrophils # Man Lymphocytes # (Manual) Monocytes # (Manual) Eosinophils # (Manual) Basophils # (Manual) PT INR Fibrinogen dRVVT Confirm Interp Factor V Activity POC ABG pH POC ABG pCO2 POC ABG pO2 ABG pO2 ABG HCO3 ABG Base Excess ABG Hemoglobin Oxyhemoglobin Sodium Potassium Chloride Carbon Dioxide BUN Creatinine Glucose POC Glucose 135 H 120 H 111 H Lactic Acid Calcium Phosphorus Magnesium Direct Bilirubin AST ALT Alkaline Phosphatase Lactate Dehydrogenase Troponin T C-Reactive Protein Total Protein Albumin Prealbumin Triglycerides Cholesterol LDL Cholesterol Direct HDL Cholesterol Urine pH Urine WBC (Auto) Urine Creatinine Urine Total Protein Fluid Total Protein Vancomycin Trough Rheumatoid Factor Complement C4 Miscellaneous Test Crossmatch 01/23/17 01/23/17 01/23/17 06:10 17:27 23:44 WBC RBC Hgb Hct MCV MCH MCHC RDW Plt Count Lymph % (Auto) [place] % (Auto) Lymph # [place] # Baso # Seg Neutrophils % Seg Neuts % (Manual) Lymphocytes % (Manual) Monocytes % (Manual) Eosinophils % (Manual) Basophils % (Manual) Nucleated RBC % Seg Neutrophils # Seg Neutrophils # Man Lymphocytes # (Manual) Monocytes # (Manual) Eosinophils # (Manual) Basophils # (Manual) PT INR Fibrinogen dRVVT Confirm Interp Factor V Activity POC ABG pH POC ABG pCO2 POC ABG pO2 ABG pO2 ABG HCO3 ABG Base Excess ABG Hemoglobin Oxyhemoglobin Sodium Potassium 3.3 L Chloride Carbon Dioxide BUN 66 H Creatinine 1.3 H Glucose 109 H POC Glucose 120 H 115 H Lactic Acid Calcium Phosphorus 2.20 L D Magnesium Direct Bilirubin AST ALT Alkaline Phosphatase Lactate Dehydrogenase Troponin T C-Reactive Protein Total Protein Albumin Prealbumin Triglycerides Cholesterol LDL Cholesterol Direct HDL Cholesterol Urine pH Urine WBC (Auto) Urine Creatinine Urine Total Protein Fluid Total Protein Vancomycin Trough Rheumatoid Factor Complement C4 Miscellaneous Test Crossmatch 01/24/17 01/24/17 01/24/17 05:19 05:50 12:19 WBC RBC Hgb Hct MCV MCH MCHC RDW Plt Count Lymph % (Auto) [place] % (Auto) Lymph # [place] # Baso # Seg Neutrophils % Seg Neuts % (Manual) Lymphocytes % (Manual) Monocytes % (Manual) Eosinophils % (Manual) Basophils % (Manual) Nucleated RBC % Seg Neutrophils # Seg Neutrophils # Man Lymphocytes # (Manual) Monocytes # (Manual) Eosinophils # (Manual) Basophils # (Manual) PT INR Fibrinogen dRVVT Confirm Interp Factor V Activity POC ABG pH POC ABG pCO2 POC ABG pO2 ABG pO2 ABG HCO3 ABG Base Excess ABG Hemoglobin Oxyhemoglobin Sodium Potassium Chloride Carbon Dioxide BUN 47 H Creatinine Glucose 117 H POC Glucose 126 H 119 H Lactic Acid Calcium Phosphorus 2.30 L Magnesium 1.60 L Direct Bilirubin AST ALT Alkaline Phosphatase Lactate Dehydrogenase Troponin T C-Reactive Protein Total Protein Albumin Prealbumin Triglycerides Cholesterol LDL Cholesterol Direct HDL Cholesterol Urine pH Urine WBC (Auto) Urine Creatinine Urine Total Protein Fluid Total Protein Vancomycin Trough Rheumatoid Factor Complement C4 Miscellaneous Test Crossmatch 01/24/17 01/25/17 01/25/17 17:08 00:37 04:00 WBC RBC Hgb Hct MCV MCH MCHC RDW Plt Count Lymph % (Auto) [place] % (Auto) Lymph # [place] # Baso # Seg Neutrophils % Seg Neuts % (Manual) Lymphocytes % (Manual) Monocytes % (Manual) Eosinophils % (Manual) Basophils % (Manual) Nucleated RBC % Seg Neutrophils # Seg Neutrophils # Man Lymphocytes # (Manual) Monocytes # (Manual) Eosinophils # (Manual) Basophils # (Manual) PT INR Fibrinogen dRVVT Confirm Interp Factor V Activity POC ABG pH POC ABG pCO2 POC ABG pO2 ABG pO2 ABG HCO3 ABG Base Excess ABG Hemoglobin Oxyhemoglobin Sodium Potassium Chloride Carbon Dioxide BUN 72 H Creatinine 1.3 H Glucose POC Glucose 127 H 110 H Lactic Acid Calcium Phosphorus Magnesium Direct Bilirubin AST ALT Alkaline Phosphatase Lactate Dehydrogenase Troponin T C-Reactive Protein Total Protein Albumin Prealbumin Triglycerides Cholesterol LDL Cholesterol Direct HDL Cholesterol Urine pH Urine WBC (Auto) Urine Creatinine Urine Total Protein Fluid Total Protein Vancomycin Trough Rheumatoid Factor Complement C4 Miscellaneous Test Crossmatch 01/25/17 01/25/17 01/25/17 04:00 11:15 13:05 WBC RBC 2.49 L Hgb 6.7 L Hct 20.9 L MCV MCH 27 L MCHC RDW 18.8 H Plt Count Lymph % (Auto) [place] % (Auto) 10.1 H Lymph # [place] # 1.0 H Baso # Seg Neutrophils % Seg Neuts % (Manual) Lymphocytes % (Manual) Monocytes % (Manual) Eosinophils % (Manual) Basophils % (Manual) Nucleated RBC % Seg Neutrophils # Seg Neutrophils # Man Lymphocytes # (Manual) Monocytes # (Manual) Eosinophils # (Manual) Basophils # (Manual) PT INR Fibrinogen dRVVT Confirm Interp Factor V Activity POC ABG pH POC ABG pCO2 POC ABG pO2 ABG pO2 ABG HCO3 ABG Base Excess ABG Hemoglobin Oxyhemoglobin Sodium Potassium Chloride Carbon Dioxide BUN Creatinine Glucose POC Glucose 128 H Lactic Acid Calcium Phosphorus Magnesium Direct Bilirubin AST ALT Alkaline Phosphatase Lactate Dehydrogenase Troponin T C-Reactive Protein Total Protein Albumin Prealbumin Triglycerides Cholesterol LDL Cholesterol Direct HDL Cholesterol Urine pH Urine WBC (Auto) Urine Creatinine Urine Total Protein Fluid Total Protein Vancomycin Trough Rheumatoid Factor Complement C4 Miscellaneous Test Crossmatch See Detail 01/25/17 01/25/17 01/26/17 18:02 23:07 01:20 WBC RBC Hgb Hct MCV MCH MCHC RDW Plt Count Lymph % (Auto) [place] % (Auto) Lymph # [place] # Baso # Seg Neutrophils % Seg Neuts % (Manual) Lymphocytes % (Manual) Monocytes % (Manual) Eosinophils % (Manual) Basophils % (Manual) Nucleated RBC % Seg Neutrophils # Seg Neutrophils # Man Lymphocytes # (Manual) Monocytes # (Manual) Eosinophils # (Manual) Basophils # (Manual) PT INR Fibrinogen dRVVT Confirm Interp Factor V Activity POC ABG pH POC ABG pCO2 POC ABG pO2 ABG pO2 ABG HCO3 ABG Base Excess ABG Hemoglobin Oxyhemoglobin Sodium Potassium Chloride Carbon Dioxide BUN Creatinine Glucose POC Glucose 120 H 123 H 112 H Lactic Acid Calcium Phosphorus Magnesium Direct Bilirubin AST ALT Alkaline Phosphatase Lactate Dehydrogenase Troponin T C-Reactive Protein Total Protein Albumin Prealbumin Triglycerides Cholesterol LDL Cholesterol Direct HDL Cholesterol Urine pH Urine WBC (Auto) Urine Creatinine Urine Total Protein Fluid Total Protein Vancomycin Trough Rheumatoid Factor Complement C4 Miscellaneous Test Crossmatch 01/26/17 01/26/17 01/26/17 04:20 04:20 11:23 WBC 13.1 H RBC 3.28 L Hgb 9.0 L Hct 26.9 L D MCV MCH 27 L MCHC RDW 17.2 H Plt Count Lymph % (Auto) [place] % (Auto) 9.0 H Lymph # [place] # 1.2 H Baso # Seg Neutrophils % 73.1 H Seg Neuts % (Manual) Lymphocytes % (Manual) Monocytes % (Manual) Eosinophils % (Manual) Basophils % (Manual) Nucleated RBC % Seg Neutrophils # 9.6 H Seg Neutrophils # Man Lymphocytes # (Manual) Monocytes # (Manual) Eosinophils # (Manual) Basophils # (Manual) PT INR Fibrinogen dRVVT Confirm Interp Factor V Activity POC ABG pH POC ABG pCO2 POC ABG pO2 ABG pO2 ABG HCO3 ABG Base Excess ABG Hemoglobin Oxyhemoglobin Sodium Potassium Chloride Carbon Dioxide BUN 51 H Creatinine Glucose 117 H POC Glucose 125 H Lactic Acid Calcium Phosphorus Magnesium Direct Bilirubin AST ALT Alkaline Phosphatase Lactate Dehydrogenase Troponin T C-Reactive Protein Total Protein Albumin Prealbumin Triglycerides Cholesterol LDL Cholesterol Direct HDL Cholesterol Urine pH Urine WBC (Auto) Urine Creatinine Urine Total Protein Fluid Total Protein Vancomycin Trough Rheumatoid Factor Complement C4 Miscellaneous Test Crossmatch 01/26/17 01/27/17 01/27/17 17:11 00:30 04:00 WBC RBC Hgb Hct MCV MCH MCHC RDW Plt Count Lymph % (Auto) [place] % (Auto) Lymph # [place] # Baso # Seg Neutrophils % Seg Neuts % (Manual) Lymphocytes % (Manual) Monocytes % (Manual) Eosinophils % (Manual) Basophils % (Manual) Nucleated RBC % Seg Neutrophils # Seg Neutrophils # Man Lymphocytes # (Manual) Monocytes # (Manual) Eosinophils # (Manual) Basophils # (Manual) PT INR Fibrinogen dRVVT Confirm Interp Factor V Activity POC ABG pH POC ABG pCO2 POC ABG pO2 ABG pO2 ABG HCO3 ABG Base Excess ABG Hemoglobin Oxyhemoglobin Sodium Potassium Chloride 97.7 L Carbon Dioxide 21 L BUN 79 H Creatinine 1.7 H D Glucose 112 H POC Glucose 133 H 135 H Lactic Acid Calcium Phosphorus 5.00 H D Magnesium Direct Bilirubin AST ALT Alkaline Phosphatase Lactate Dehydrogenase Troponin T C-Reactive Protein Total Protein Albumin Prealbumin Triglycerides Cholesterol LDL Cholesterol Direct HDL Cholesterol Urine pH Urine WBC (Auto) Urine Creatinine Urine Total Protein Fluid Total Protein Vancomycin Trough Rheumatoid Factor Complement C4 Miscellaneous Test Crossmatch 01/27/17 01/27/17 01/27/17 05:12 12:18 17:25 WBC RBC Hgb Hct MCV MCH MCHC RDW Plt Count Lymph % (Auto) [place] % (Auto) Lymph # [place] # Baso # Seg Neutrophils % Seg Neuts % (Manual) Lymphocytes % (Manual) Monocytes % (Manual) Eosinophils % (Manual) Basophils % (Manual) Nucleated RBC % Seg Neutrophils # Seg Neutrophils # Man Lymphocytes # (Manual) Monocytes # (Manual) Eosinophils # (Manual) Basophils # (Manual) PT INR Fibrinogen dRVVT Confirm Interp Factor V Activity POC ABG pH POC ABG pCO2 POC ABG pO2 ABG pO2 ABG HCO3 ABG Base Excess ABG Hemoglobin Oxyhemoglobin Sodium Potassium Chloride Carbon Dioxide BUN Creatinine Glucose POC Glucose 116 H 153 H 152 H Lactic Acid Calcium Phosphorus Magnesium Direct Bilirubin AST ALT Alkaline Phosphatase Lactate Dehydrogenase Troponin T C-Reactive Protein Total Protein Albumin Prealbumin Triglycerides Cholesterol LDL Cholesterol Direct HDL Cholesterol Urine pH Urine WBC (Auto) Urine Creatinine Urine Total Protein Fluid Total Protein Vancomycin Trough Rheumatoid Factor Complement C4 Miscellaneous Test Crossmatch 01/27/17 01/28/17 01/28/17 23:42 04:00 04:00 WBC 14.4 H RBC 2.82 L Hgb 7.4 L Hct 23.5 L MCV MCH 26 L MCHC RDW 17.6 H Plt Count Lymph % (Auto) 10.2 L [place] % (Auto) 11.0 H Lymph # [place] # 1.6 H Baso # Seg Neutrophils % 78.0 H Seg Neuts % (Manual) Lymphocytes % (Manual) Monocytes % (Manual) Eosinophils % (Manual) Basophils % (Manual) Nucleated RBC % Seg Neutrophils # 11.3 H Seg Neutrophils # Man Lymphocytes # (Manual) Monocytes # (Manual) Eosinophils # (Manual) Basophils # (Manual) PT INR Fibrinogen dRVVT Confirm Interp Factor V Activity POC ABG pH POC ABG pCO2 POC ABG pO2 ABG pO2 ABG HCO3 ABG Base Excess ABG Hemoglobin Oxyhemoglobin Sodium Potassium Chloride Carbon Dioxide BUN 55 H Creatinine 1.3 H Glucose 114 H POC Glucose 121 H Lactic Acid Calcium Phosphorus Magnesium Direct Bilirubin AST ALT Alkaline Phosphatase Lactate Dehydrogenase Troponin T C-Reactive Protein Total Protein Albumin 1.4 L Prealbumin Triglycerides Cholesterol LDL Cholesterol Direct HDL Cholesterol Urine pH Urine WBC (Auto) Urine Creatinine Urine Total Protein Fluid Total Protein Vancomycin Trough Rheumatoid Factor Complement C4 Miscellaneous Test Crossmatch 01/28/17 01/28/17 01/29/17 04:59 12:30 00:02 WBC RBC Hgb Hct MCV MCH MCHC RDW Plt Count Lymph % (Auto) [place] % (Auto) Lymph # [place] # Baso # Seg Neutrophils % Seg Neuts % (Manual) Lymphocytes % (Manual) Monocytes % (Manual) Eosinophils % (Manual) Basophils % (Manual) Nucleated RBC % Seg Neutrophils # Seg Neutrophils # Man Lymphocytes # (Manual) Monocytes # (Manual) Eosinophils # (Manual) Basophils # (Manual) PT INR Fibrinogen dRVVT Confirm Interp Factor V Activity POC ABG pH POC ABG pCO2 POC ABG pO2 ABG pO2 ABG HCO3 ABG Base Excess ABG Hemoglobin Oxyhemoglobin Sodium Potassium Chloride Carbon Dioxide BUN Creatinine Glucose POC Glucose 126 H 119 H 138 H Lactic Acid Calcium Phosphorus Magnesium Direct Bilirubin AST ALT Alkaline Phosphatase Lactate Dehydrogenase Troponin T C-Reactive Protein Total Protein Albumin Prealbumin Triglycerides Cholesterol LDL Cholesterol Direct HDL Cholesterol Urine pH Urine WBC (Auto) Urine Creatinine Urine Total Protein Fluid Total Protein Vancomycin Trough Rheumatoid Factor Complement C4 Miscellaneous Test Crossmatch 01/29/17 01/29/17 04:58 06:15 WBC RBC Hgb Hct MCV MCH MCHC RDW Plt Count Lymph % (Auto) [place] % (Auto) Lymph # [place] # Baso # Seg Neutrophils % Seg Neuts % (Manual) Lymphocytes % (Manual) Monocytes % (Manual) Eosinophils % (Manual) Basophils % (Manual) Nucleated RBC % Seg Neutrophils # Seg Neutrophils # Man Lymphocytes # (Manual) Monocytes # (Manual) Eosinophils # (Manual) Basophils # (Manual) PT INR Fibrinogen dRVVT Confirm Interp Factor V Activity POC ABG pH POC ABG pCO2 POC ABG pO2 ABG pO2 ABG HCO3 ABG Base Excess ABG Hemoglobin Oxyhemoglobin Sodium Potassium Chloride Carbon Dioxide BUN 85 H Creatinine 1.7 H Glucose 105 H POC Glucose 114 H Lactic Acid Calcium Phosphorus Magnesium 2.40 H Direct Bilirubin AST ALT Alkaline Phosphatase Lactate Dehydrogenase Troponin T C-Reactive Protein Total Protein Albumin Prealbumin Triglycerides Cholesterol LDL Cholesterol Direct HDL Cholesterol Urine pH Urine WBC (Auto) Urine Creatinine Urine Total Protein Fluid Total Protein Vancomycin Trough Rheumatoid Factor Complement C4 Miscellaneous Test Crossmatch Allied health notes reviewed: RT (not tolerating weaning. Has been on PS 18/5, desaturations if PS is weaned)
--- NOTE | 2017-01-29 13:14 | Progress Note ---
Assessment and Plan Assessment * Oliguric acute kidney injury secondary to ATN on CKD - baseline SCr 1.7mg/dL --24h urine CrCl 5ml/min Sep 24 * Acute CVA - left MCA with midline shift * Atrial fibrillation w/ RVR * Enteric fistula * Acute hypoxic respiratory failure * Sacral decubitus ulcer s/p debridement, wound vac in place * s/p Cardiac arrest * Hx of GI bleed * Left renal artery stenosis * Anemia * Hx of hypertension * s/p Candidemia Plan: * Continue HD MWF. No acute need for HD today * UF as tolerated * Adjust K bath with dialysis * Transfuse pRBC per primary team. Epogen TIW prn * Vent management per pulm/CCM * Pressors prn for MAP>65 * Dose medications for renal function Subjective Date of service: 01/29/17 Principal diagnosis: Acute resp failure on MVS; S/P Acute CVA; Acute Encephalopathy; JUANITA Interval history: No acute events overnight Objective - Vital Signs Vital signs: Vital Signs - 12hr 01/29/17 01/29/17 01/29/17 01:15 01:30 01:45 Temperature Pulse Rate 92 H 89 92 H Pulse Rate [ Anterior Bilateral Throughout] Pulse Rate [ From Monitor] Respiratory 20 16 18 Rate Respiratory Rate [Anterior Bilateral Throughout] Blood Pressure 117/71 117/71 120/78 O2 Sat by Pulse 97 100 100 Oximetry O2 Sat by Pulse Oximetry [ Assessment] 01/29/17 01/29/17 01/29/17 02:00 02:15 02:30 Temperature Pulse Rate 93 H 94 H 91 H Pulse Rate [ 94 H 96 H Anterior Bilateral Throughout] Pulse Rate [ From Monitor] Respiratory 17 25 H 26 H Rate Respiratory 17 17 Rate [Anterior Bilateral Throughout] Blood Pressure 121/74 123/78 115/73 O2 Sat by Pulse 100 100 98 Oximetry O2 Sat by Pulse Oximetry [ Assessment] 01/29/17 01/29/17 01/29/17 02:44 02:45 03:00 Temperature Pulse Rate 93 H 93 H Pulse Rate [ Anterior Bilateral Throughout] Pulse Rate [ From Monitor] Respiratory 15 17 Rate Respiratory Rate [Anterior Bilateral Throughout] Blood Pressure 116/68 122/77 O2 Sat by Pulse 100 100 Oximetry O2 Sat by Pulse 100 Oximetry [ Assessment] 01/29/17 01/29/17 01/29/17 03:15 03:30 03:44 Temperature 99.1 F Pulse Rate 93 H 94 H Pulse Rate [ Anterior Bilateral Throughout] Pulse Rate [ From Monitor] Respiratory 16 19 Rate Respiratory Rate [Anterior Bilateral Throughout] Blood Pressure 128/79 122/75 O2 Sat by Pulse 100 100 Oximetry O2 Sat by Pulse Oximetry [ Assessment] 01/29/17 01/29/17 01/29/17 03:45 04:00 04:15 Temperature Pulse Rate 94 H 94 H 95 H Pulse Rate [ Anterior Bilateral Throughout] Pulse Rate [ 98 H From Monitor] Respiratory 15 19 13 Rate Respiratory Rate [Anterior Bilateral Throughout] Blood Pressure 111/66 110/64 111/69 O2 Sat by Pulse 100 97 100 Oximetry O2 Sat by Pulse Oximetry [ Assessment] 01/29/17 01/29/17 01/29/17 04:30 04:46 05:00 Temperature Pulse Rate 100 H 103 H 106 H Pulse Rate [ Anterior Bilateral Throughout] Pulse Rate [ From Monitor] Respiratory 21 18 25 H Rate Respiratory Rate [Anterior Bilateral Throughout] Blood Pressure 111/69 111/69 111/69 O2 Sat by Pulse 100 98 99 Oximetry O2 Sat by Pulse Oximetry [ Assessment] 01/29/17 01/29/17 01/29/17 05:09 05:15 05:30 Temperature Pulse Rate 103 H 96 H 90 Pulse Rate [ Anterior Bilateral Throughout] Pulse Rate [ From Monitor] Respiratory 18 17 Rate Respiratory Rate [Anterior Bilateral Throughout] Blood Pressure 111/69 113/73 111/71 O2 Sat by Pulse 99 98 97 Oximetry O2 Sat by Pulse Oximetry [ Assessment] 01/29/17 01/29/17 01/29/17 05:39 05:43 05:45 Temperature Pulse Rate 99 H 90 87 Pulse Rate [ Anterior Bilateral Throughout] Pulse Rate [ From Monitor] Respiratory 17 Rate Respiratory Rate [Anterior Bilateral Throughout] Blood Pressure 113/72 111/71 118/76 O2 Sat by Pulse 98 Oximetry O2 Sat by Pulse Oximetry [ Assessment] 01/29/17 01/29/17 01/29/17 06:00 06:15 06:30 Temperature Pulse Rate 82 79 77 Pulse Rate [ Anterior Bilateral Throughout] Pulse Rate [ From Monitor] Respiratory 19 15 17 Rate Respiratory Rate [Anterior Bilateral Throughout] Blood Pressure 116/72 117/69 109/70 O2 Sat by Pulse 98 98 98 Oximetry O2 Sat by Pulse Oximetry [ Assessment] 01/29/17 01/29/17 01/29/17 06:45 07:00 07:15 Temperature Pulse Rate 80 80 78 Pulse Rate [ Anterior Bilateral Throughout] Pulse Rate [ From Monitor] Respiratory 17 14 15 Rate Respiratory Rate [Anterior Bilateral Throughout] Blood Pressure 121/78 132/82 115/70 O2 Sat by Pulse 98 100 99 Oximetry O2 Sat by Pulse Oximetry [ Assessment] 01/29/17 01/29/17 01/29/17 07:30 07:45 08:00 Temperature Pulse Rate 79 78 79 Pulse Rate [ 79 Anterior Bilateral Throughout] Pulse Rate [ 79 From Monitor] Respiratory 17 15 23 Rate Respiratory 15 Rate [Anterior Bilateral Throughout] Blood Pressure 118/78 124/70 115/65 O2 Sat by Pulse 99 99 84 Oximetry O2 Sat by Pulse Oximetry [ Assessment] 01/29/17 01/29/17 01/29/17 08:05 08:15 08:19 Temperature Pulse Rate 80 77 Pulse Rate [ 80 Anterior Bilateral Throughout] Pulse Rate [ From Monitor] Respiratory 12 Rate Respiratory 21 Rate [Anterior Bilateral Throughout] Blood Pressure 115/65 114/73 O2 Sat by Pulse 100 100 Oximetry O2 Sat by Pulse Oximetry [ Assessment] 01/29/17 01/29/17 01/29/17 08:30 08:45 09:00 Temperature Pulse Rate 81 80 77 Pulse Rate [ Anterior Bilateral Throughout] Pulse Rate [ From Monitor] Respiratory 15 20 14 Rate Respiratory Rate [Anterior Bilateral Throughout] Blood Pressure 121/78 128/81 122/71 O2 Sat by Pulse 100 100 100 Oximetry O2 Sat by Pulse Oximetry [ Assessment] 01/29/17 01/29/17 01/29/17 09:16 09:30 09:45 Temperature Pulse Rate 76 76 74 Pulse Rate [ Anterior Bilateral Throughout] Pulse Rate [ From Monitor] Respiratory 12 13 16 Rate Respiratory Rate [Anterior Bilateral Throughout] Blood Pressure 103/56 109/63 97/58 O2 Sat by Pulse 100 100 100 Oximetry O2 Sat by Pulse Oximetry [ Assessment] 01/29/17 01/29/17 01/29/17 10:00 10:15 10:30 Temperature Pulse Rate 79 81 81 Pulse Rate [ Anterior Bilateral Throughout] Pulse Rate [ From Monitor] Respiratory 20 16 12 Rate Respiratory Rate [Anterior Bilateral Throughout] Blood Pressure 125/78 112/75 132/87 O2 Sat by Pulse 100 100 100 Oximetry O2 Sat by Pulse Oximetry [ Assessment] 01/29/17 01/29/17 01/29/17 10:45 11:00 11:15 Temperature Pulse Rate 81 78 81 Pulse Rate [ Anterior Bilateral Throughout] Pulse Rate [ From Monitor] Respiratory 17 15 20 Rate Respiratory Rate [Anterior Bilateral Throughout] Blood Pressure 130/79 126/73 120/79 O2 Sat by Pulse 100 100 100 Oximetry O2 Sat by Pulse Oximetry [ Assessment] 01/29/17 01/29/17 01/29/17 11:30 11:36 11:45 Temperature Pulse Rate 83 80 82 Pulse Rate [ Anterior Bilateral Throughout] Pulse Rate [ From Monitor] Respiratory 18 20 Rate Respiratory Rate [Anterior Bilateral Throughout] Blood Pressure 126/81 126/81 137/80 O2 Sat by Pulse 100 100 100 Oximetry O2 Sat by Pulse Oximetry [ Assessment] 01/29/17 01/29/17 01/29/17 12:00 12:15 12:30 Temperature Pulse Rate 83 84 82 Pulse Rate [ Anterior Bilateral Throughout] Pulse Rate [ 83 From Monitor] Respiratory 15 16 17 Rate Respiratory Rate [Anterior Bilateral Throughout] Blood Pressure 136/73 133/82 123/77 O2 Sat by Pulse 100 100 100 Oximetry O2 Sat by Pulse Oximetry [ Assessment] 01/29/17 01/29/17 13:00 13:01 Temperature Pulse Rate 84 84 Pulse Rate [ Anterior Bilateral Throughout] Pulse Rate [ From Monitor] Respiratory Rate Respiratory Rate [Anterior Bilateral Throughout] Blood Pressure 128/81 128/81 O2 Sat by Pulse Oximetry O2 Sat by Pulse Oximetry [ Assessment] - General Appearance General appearance: chronically ill, intubated EENT: ATNC Respiratory: Present: Other (coarse breath sounds) Cardiology: regular, S1S2 Neurologic: other (unresponsive) Musculoskeletal: other (trace edema) - Lab 01/28/17 04:00 01/29/17 06:15 Most recent lab results ABG pH 7.450 pH Units (7.350-7.450) 12/05/16 Unknown ABG pCO2 29.6 mm Hg 12/05/16 Unknown ABG pO2 75.2 mm Hg (80.0-90.0) L 12/05/16 Unknown ABG HCO3 20.1 mmol/L (20.0-26.0) 12/05/16 Unknown ABG O2 Saturation 96.8 % (95.0-99.0) 12/05/16 Unknown Calcium 9.1 mg/dL (8.4-10.2) 01/29/17 06:15 Phosphorus 4.20 mg/dL (2.5-4.5) D 01/29/17 06:15 Magnesium 2.40 mg/dL (1.7-2.3) H 01/29/17 06:15 Urine Creatinine 19.7 mg/dL (0.1-20.0) 11/12/16 10:18 Urine Sodium 36 mEq/L 09/16/16 19:19 Urine Total Protein 16 mg/dL (5-11.8) H 09/16/16 19:19
--- NOTE | 2017-01-29 14:43 | Progress Note ---
Assessment and Plan Assessment and Plan --Severe Sepsis with septic shock, recurrent. Patient with multiple episodes of sepsis. Initial episode due to presumed aspiration pneumonia and septic episode on 09/23 from candidemia then a third episode from peritonitis from gastric perforation from dislodged PEG +/-UTI. Patient was also noted to have had Candidemia with Blood cultures positive for Silvia albicans 09/23, 09/25 but negative on 09/30. Antibiotic discontinued on 12/05 per ID. patient is s/p R thoracentesis on 11/14, 240cc of serous fluid removed, cx of fluid was negative. Also, Stool negative for C. difficile --Surgical wound infection/gram-negative sepsis/candidemia/peritonitis. Continue wound care to ostomy sites --Acute hypoxic respiratory failure, status post tracheostomy Patient placed back on ventilation. Patient currently with CPAP mode. Patient failed T-piece trials. Tracheostomy tube leak. Pulmonary following --Acute massive CVA with mass effect; continue antiplatelets and statins CT showed continued evolution of left MCA infarct with slight mass effect and edema, and there is no hemorrhage -PRINCE showed hyperdynamic ventricle with ef of 75%, neither clot nor septal defect seen -MRA Brain shows near complete occlusion of M2 and M3 of the left MCA carotid doppler negative -Echo shows preserved systolic function but does show some left ventricular diastolic dysfunction -continue asa and statin --Oliguric acute kidney injury. Etiology secondary to ATN on CKD. Baseline creatinine is approximately 1.7. Today's BUN/Cr is 75/1.6 --Paroxysmal atrial fibrillation with rapid ventricular rate, failed cardioversion Continue current medications, Not a candidate for anticoagulation secondary to anemia, thrombocytopenia and massive CVA --Anemia; probably secondary to GI bleeding Patient received multiple units of PRBC in the past, hemoglobin currently stable -Toxic metabolic encephalopathy; supportive care --Diabetes mellitus type 2, Insulin/SSI --Severe protein caloric malnutrition, cont TPN --s/p Thrombocytopenia. Now resolved --DVT prophylaxis, SCDs, no pharmacological agent given anemia , thrombocytopenia, massive stroke --Full code status, very poor prognosis Subjective Date of service: 01/29/17 Principal diagnosis: Acute resp failure on MVS; S/P Acute CVA; Acute Encephalopathy; JUANITA Interval history: No interval change Objective - Constitutional Vitals: Vital Signs - 12hr 01/29/17 01/29/17 01/29/17 02:44 02:45 03:00 Temperature Pulse Rate 93 H 93 H Pulse Rate [ Anterior Bilateral Throughout] Pulse Rate [ From Monitor] Respiratory 15 17 Rate Respiratory Rate [Anterior Bilateral Throughout] Blood Pressure 116/68 122/77 O2 Sat by Pulse 100 100 Oximetry O2 Sat by Pulse 100 Oximetry [ Assessment] 01/29/17 01/29/17 01/29/17 03:15 03:30 03:44 Temperature 99.1 F Pulse Rate 93 H 94 H Pulse Rate [ Anterior Bilateral Throughout] Pulse Rate [ From Monitor] Respiratory 16 19 Rate Respiratory Rate [Anterior Bilateral Throughout] Blood Pressure 128/79 122/75 O2 Sat by Pulse 100 100 Oximetry O2 Sat by Pulse Oximetry [ Assessment] 01/29/17 01/29/17 01/29/17 03:45 04:00 04:15 Temperature Pulse Rate 94 H 94 H 95 H Pulse Rate [ Anterior Bilateral Throughout] Pulse Rate [ 98 H From Monitor] Respiratory 15 19 13 Rate Respiratory Rate [Anterior Bilateral Throughout] Blood Pressure 111/66 110/64 111/69 O2 Sat by Pulse 100 97 100 Oximetry O2 Sat by Pulse Oximetry [ Assessment] 01/29/17 01/29/17 01/29/17 04:30 04:46 05:00 Temperature Pulse Rate 100 H 103 H 106 H Pulse Rate [ Anterior Bilateral Throughout] Pulse Rate [ From Monitor] Respiratory 21 18 25 H Rate Respiratory Rate [Anterior Bilateral Throughout] Blood Pressure 111/69 111/69 111/69 O2 Sat by Pulse 100 98 99 Oximetry O2 Sat by Pulse Oximetry [ Assessment] 01/29/17 01/29/17 01/29/17 05:09 05:15 05:30 Temperature Pulse Rate 103 H 96 H 90 Pulse Rate [ Anterior Bilateral Throughout] Pulse Rate [ From Monitor] Respiratory 18 17 Rate Respiratory Rate [Anterior Bilateral Throughout] Blood Pressure 111/69 113/73 111/71 O2 Sat by Pulse 99 98 97 Oximetry O2 Sat by Pulse Oximetry [ Assessment] 01/29/17 01/29/17 01/29/17 05:39 05:43 05:45 Temperature Pulse Rate 99 H 90 87 Pulse Rate [ Anterior Bilateral Throughout] Pulse Rate [ From Monitor] Respiratory 17 Rate Respiratory Rate [Anterior Bilateral Throughout] Blood Pressure 113/72 111/71 118/76 O2 Sat by Pulse 98 Oximetry O2 Sat by Pulse Oximetry [ Assessment] 01/29/17 01/29/17 01/29/17 06:00 06:15 06:30 Temperature Pulse Rate 82 79 77 Pulse Rate [ Anterior Bilateral Throughout] Pulse Rate [ From Monitor] Respiratory 19 15 17 Rate Respiratory Rate [Anterior Bilateral Throughout] Blood Pressure 116/72 117/69 109/70 O2 Sat by Pulse 98 98 98 Oximetry O2 Sat by Pulse Oximetry [ Assessment] 01/29/17 01/29/17 01/29/17 06:45 07:00 07:15 Temperature Pulse Rate 80 80 78 Pulse Rate [ Anterior Bilateral Throughout] Pulse Rate [ From Monitor] Respiratory 17 14 15 Rate Respiratory Rate [Anterior Bilateral Throughout] Blood Pressure 121/78 132/82 115/70 O2 Sat by Pulse 98 100 99 Oximetry O2 Sat by Pulse Oximetry [ Assessment] 01/29/17 01/29/17 01/29/17 07:30 07:45 08:00 Temperature Pulse Rate 79 78 79 Pulse Rate [ 79 Anterior Bilateral Throughout] Pulse Rate [ 79 From Monitor] Respiratory 17 15 23 Rate Respiratory 15 Rate [Anterior Bilateral Throughout] Blood Pressure 118/78 124/70 115/65 O2 Sat by Pulse 99 99 84 Oximetry O2 Sat by Pulse Oximetry [ Assessment] 01/29/17 01/29/17 01/29/17 08:05 08:15 08:19 Temperature Pulse Rate 80 77 Pulse Rate [ 80 Anterior Bilateral Throughout] Pulse Rate [ From Monitor] Respiratory 12 Rate Respiratory 21 Rate [Anterior Bilateral Throughout] Blood Pressure 115/65 114/73 O2 Sat by Pulse 100 100 Oximetry O2 Sat by Pulse Oximetry [ Assessment] 01/29/17 01/29/17 01/29/17 08:30 08:45 09:00 Temperature Pulse Rate 81 80 77 Pulse Rate [ Anterior Bilateral Throughout] Pulse Rate [ From Monitor] Respiratory 15 20 14 Rate Respiratory Rate [Anterior Bilateral Throughout] Blood Pressure 121/78 128/81 122/71 O2 Sat by Pulse 100 100 100 Oximetry O2 Sat by Pulse Oximetry [ Assessment] 01/29/17 01/29/17 01/29/17 09:16 09:30 09:45 Temperature Pulse Rate 76 76 74 Pulse Rate [ Anterior Bilateral Throughout] Pulse Rate [ From Monitor] Respiratory 12 13 16 Rate Respiratory Rate [Anterior Bilateral Throughout] Blood Pressure 103/56 109/63 97/58 O2 Sat by Pulse 100 100 100 Oximetry O2 Sat by Pulse Oximetry [ Assessment] 01/29/17 01/29/1717 10:00 10:15 10:30 Temperature Pulse Rate 79 81 81 Pulse Rate [ Anterior Bilateral Throughout] Pulse Rate [ From Monitor] Respiratory 20 16 12 Rate Respiratory Rate [Anterior Bilateral Throughout] Blood Pressure 125/78 112/75 132/87 O2 Sat by Pulse 100 100 100 Oximetry O2 Sat by Pulse Oximetry [ Assessment] 01/29/17 01/29/17 01/29/17 10:45 11:00 11:15 Temperature Pulse Rate 81 78 81 Pulse Rate [ Anterior Bilateral Throughout] Pulse Rate [ From Monitor] Respiratory 17 15 20 Rate Respiratory Rate [Anterior Bilateral Throughout] Blood Pressure 130/79 126/73 120/79 O2 Sat by Pulse 100 100 100 Oximetry O2 Sat by Pulse Oximetry [ Assessment] 01/29/17 01/29/17 01/29/17 11:30 11:36 11:45 Temperature Pulse Rate 83 80 82 Pulse Rate [ Anterior Bilateral Throughout] Pulse Rate [ From Monitor] Respiratory 18 20 Rate Respiratory Rate [Anterior Bilateral Throughout] Blood Pressure 126/81 126/81 137/80 O2 Sat by Pulse 100 100 100 Oximetry O2 Sat by Pulse Oximetry [ Assessment] 01/29/17 01/29/17 01/29/17 12:00 12:15 12:30 Temperature Pulse Rate 83 84 82 Pulse Rate [ Anterior Bilateral Throughout] Pulse Rate [ 83 From Monitor] Respiratory 15 16 17 Rate Respiratory Rate [Anterior Bilateral Throughout] Blood Pressure 136/73 133/82 123/77 O2 Sat by Pulse 100 100 100 Oximetry O2 Sat by Pulse Oximetry [ Assessment] 01/29/17 01/29/17 01/29/17 13:00 13:01 13:42 Temperature Pulse Rate 84 84 Pulse Rate [ 80 Anterior Bilateral Throughout] Pulse Rate [ From Monitor] Respiratory Rate Respiratory 14 Rate [Anterior Bilateral Throughout] Blood Pressure 128/81 128/81 O2 Sat by Pulse Oximetry O2 Sat by Pulse Oximetry [ Assessment] 01/29/17 13:53 Temperature Pulse Rate Pulse Rate [ 80 Anterior Bilateral Throughout] Pulse Rate [ From Monitor] Respiratory Rate Respiratory 23 Rate [Anterior Bilateral Throughout] Blood Pressure O2 Sat by Pulse Oximetry O2 Sat by Pulse Oximetry [ Assessment] General appearance: Present: no acute distress, well-nourished - EENT Eyes: PERRL, EOM intact ENT: hearing intact, clear oral mucosa Ears: bilateral: normal - Neck Neck: supple, normal ROM - Respiratory Respiratory effort: normal Respiratory: bilateral: CTA - Breasts Breasts: normal - Cardiovascular Rhythm: regular Heart Sounds: Present: S1 & S2. Absent: gallop, rub Extremities: pulses intact, No edema, normal color, Full ROM - Gastrointestinal General gastrointestinal: Present: soft, non-tender, non-distended, normal bowel sounds - Genitourinary Female genitourinary: normal - Integumentary Integumentary: clear, warm, dry - Musculoskeletal Musculoskeletal: 1, strength equal bilaterally - Neurologic Neurologic: moves all extremities - Psychiatric Psychiatric: memory intact, appropriate mood/affect, intact judgment & insight - Labs CBC & Chem 7: 02/02/17 10:16 02/03/17 07:38 Labs: Abnormal lab results 01/29/17 01/29/17 01/29/17 Range/Units 00:02 04:58 06:15 BUN 85 H (7-17) mg/dL Creatinine 1.7 H (0.7-1.2) mg/dL Glucose 105 H (65-100) mg/dL POC Glucose 138 H 114 H (70-105) Magnesium 2.40 H (1.7-2.3) mg/dL 01/29/17 Range/Units 11:35 BUN (7-17) mg/dL Creatinine (0.7-1.2) mg/dL Glucose (65-100) mg/dL POC Glucose 110 H (70-105) Magnesium (1.7-2.3) mg/dL
[2017-01-29] MEDS ORDERED: TPN ADULT IV SCH (20:00)
[2017-01-30] MEDS: HumuLIN R SUB-Q SCH ×4 (00:02→17:49)
[2017-01-30] MEDS: LOPRESSOR PO SCH ×4 (00:03→17:47)
[2017-01-30] MEDS: DUONEB *Not for PRN Use IH SCH ×3 (02:01→13:38)
[2017-01-30] MEDS: APRESOLINE PO SCH ×3 (05:58→22:34)
[2017-01-30] MEDS: REGLAN IV SCH ×3 (05:59→22:32)
[2017-01-30] MEDS: NORVASC PO SCH (10:21)
[2017-01-30] MEDS: ROBINUL PO SCH ×2 (10:22→22:36)
[2017-01-30] MEDS: HEPARIN SUB-Q SCH ×2 (10:22→22:26)
[2017-01-30] MEDS: PROTONIX FEEDTUBE SCH (10:23)
--- NOTE | 2017-01-30 10:56 | Progress Note ---
Assessment and Plan Assessment: 1) Recurrent SIRS: unclear source, fever better. 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 gastric perf (PEG placed on 09/20) +/- TPN +/- central lines -TTE 10/07 no vegetations -PICC exchanged on 10/03 -fully treated with micafungin for 14 days last day 10/13 4) History CA-UTI s/p gutierrez exchanged 5) Diarrhea - ? etiology ? antibiotic-induced, not better. 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 from GI bleed 13) Recent abdominal wall abscess at surgical site-treated 14 ) Recent Enterococcal bacteremia from PICC line infection. 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 -worsening -S/P debridement at bedside - new wound cx 01/24 +Proteus and MDR Pseudomonas (resistant to meropenem and cefepime/sensitive to ceftazidime) 16) Presumed VAP: sputum + MDR Pseudomonas / Proteus Plan: -stop meropenem -start ceftazidime IV total 4 weeks until 02/04 -repeat CRP -continue wound care Thank you Dr Brown or your consultation, will follow up with you. Pauline Carias MD Infectious Diseases Specialist [facility] M [phone] O [phone] Subjective Date of service: 01/30/17 Principal diagnosis: Acute resp failure on MVS; S/P Acute CVA; Acute Encephalopathy; JUANITA Interval history: Interval history: Alert, temp 100.6 , remains on the vent via trach + TPN Microbiology: Blood cultures: 7/25 neg 8/ Silvia albicans 09/25 Silvia 09/29 neg 10/07 neg /16 neg 11/07 ngtd 10 E faecalis 1 of 4 bottles 11/25 neg 12/27 neg 01/09 ngtd Urine cultures: 09/10 neg 09/13 neg 8/ 10-100K mixed species 10/07 neg 11/05 VRE 11/07 mixed bacteria Respiratory cultures: 09/07 neg 09/13 neg 09/23 neg 11/07 MDR Pseudomonas 10 tracheal + VRE 01/09 Pseudomonas x 3 and Proteues Pleural effusion: ngtd Wound cultures: 10/17 abd wall wound purulence + Pseudomonas MDR 01/24 GNRs Stool cultures: cath tip 11/07 + SLIP MAKER Current Antimicrobials: meropenem 01/08 Previous Antimicrobials: Zosyn 10/07 Vancomycin PO 10/01 Metronidazole 09/25 Micafungin 09/27-10/13 Meropenem 10/10 Vanco 10/17 zosyn 10/21 Cefepime 11/10 vancomyin 11/07 fluconazole 10/19 cefepime 10/29levaquin 11/05 vanco 11/23 Objective - Exam Narrative Exam: General appearance: somnolent non communicative, on the vent via trach in mild resp distress, no following commands Eyes: anicteric sclera, moist conjunctivae; PERRLA HENT: Atraumatic; oropharynx limited; Normal external ears. +NGT with greenish secretion Neck: +trach in place; supple, no thyromegaly or lymphadenopathy Lungs: brit coarse BS CV: rrr Abdomen: Soft, non-tender, +old PEG site no drainage. +iliostomy. 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 Necrotic tissue noted on the wound edges and in the wound bed Psych: somnolent . Neuro: alert non verbal on the vent. Lines: PICC / gutierrez - Constitutional Vitals: Vital Signs Temp Pulse Resp BP Pulse Ox 97.5 F L 92 H 21 108/61 100 01/30/17 08:00 01/30/17 10:21 01/30/17 08:51 01/30/17 10:21 01/30/17 08:31 Temperature -Last 24 Hours Temperature 97.5 F Temperature 98.8 F Temperature 99 F Temperature 98.7 F Temperature 96.7 F Temperature 97.0 F - Labs CBC & Chem 7: 01/28/17 04:00 01/29/17 06:15 Labs: Abnormal lab results 01/29/17 01/29/17 01/30/17 Range/Units 11:35 23:41 05:12 POC Glucose 110 H 134 H 109 H (70-105)
--- NOTE | 2017-01-30 11:32 | Event Note ---
Date: 01/30/17 Thoracic ultrasound noted. The patient has a small less than 250 mL pleural effusion. At the last thoracentesis attempt only 75 ML's were aspirated. The patient will be scheduled for a thoracentesis tomorrow to see if additional fluid may be aspirated in an attempt to improve her respiratory status.
--- NOTE | 2017-01-30 11:55 | Progress Note ---
Subjective Principal diagnosis: Acute resp failure on MVS; S/P Acute CVA; Acute Encephalopathy; JUANITA Interval history: Patient was seen today for follow-up on multiple renal-related issues She currently remains ventilator dependent, dialysis dependent interdisciplinary notes were noted Lab results were reviewed Social history: Reviewed Medication: Reviewed Family history: Reviewed Allergies: Reviewed Physical examination General; no acute distress HEENT: Mild pallor no icterus oral mucosa moist Neck: Supple soft no jugular venous distention Chest: Bilateral clear to auscultation anteriorly posteriorly a few faint basilar crackles at the lung bases no wheezes Cardiovascular: S1-S2 heart no S3-S4 Abdomen: Soft nontender no voluntary guarding rigidity rebound no organomegaly no masses no suprapubic fullness no CVA tenderness Extremity: Minimal edema dry skin no tenderness in the Area Derm: Dry skin Assessment and plan acute kidney injury with underlying chronic kidney disease patient is currently dialysis dependent We'll need to monitor for any signs and symptoms of renal function recovery urine output is a little better Anemia and end-stage renal disease to monitor and follow Secondary hyperparathyroidism we'll check phosphorus and PTH level now that she is end-stage renal disease Continue with nutritional support high protein diet Renovascular hypertension currently stable respiratory failure: Status post tracheotomy vent dependent has pleural effusion currently being followed by intervention radiology massive stroke with mass effect; neurologically essentially not much changed Multiple episodes of sepsis noted this admission Paroxysmal atrial fibrillation with rapid ventricular response failed cardioversion Thrombocytopenia multifactorial Severe protein calorie malnutrition Overall prognosis appears not to be good We'll continue to follow and make recommendation from renal standpoint Objective - Vital Signs Vital signs: Vital Signs - 12hr 01/30/17 01/30/17 01/30/17 00:00 00:03 00:15 Temperature Pulse Rate 90 88 86 Pulse Rate [ Anterior Bilateral Throughout] Respiratory 22 17 Rate Respiratory Rate [Anterior Bilateral Throughout] Blood Pressure 136/82 136/82 124/77 O2 Sat by Pulse 100 100 Oximetry O2 Sat by Pulse Oximetry [ Assessment] 01/30/17 01/30/17 01/30/17 00:30 00:45 01:00 Temperature Pulse Rate 84 84 85 Pulse Rate [ Anterior Bilateral Throughout] Respiratory 18 18 14 Rate Respiratory Rate [Anterior Bilateral Throughout] Blood Pressure 124/74 120/72 135/78 O2 Sat by Pulse 100 100 100 Oximetry O2 Sat by Pulse Oximetry [ Assessment] 01/30/17 01/30/17 01/30/17 01:15 01:30 01:46 Temperature Pulse Rate 83 82 92 H Pulse Rate [ Anterior Bilateral Throughout] Respiratory 17 14 22 Rate Respiratory Rate [Anterior Bilateral Throughout] Blood Pressure 118/72 131/77 156/123 O2 Sat by Pulse 100 100 100 Oximetry O2 Sat by Pulse Oximetry [ Assessment] 01/30/17 01/30/17 01/30/17 02:00 02:15 02:27 Temperature Pulse Rate 86 83 Pulse Rate [ 85 87 Anterior Bilateral Throughout] Respiratory 15 25 H Rate Respiratory 17 17 Rate [Anterior Bilateral Throughout] Blood Pressure 136/79 138/69 O2 Sat by Pulse 100 88 Oximetry O2 Sat by Pulse 100 Oximetry [ Assessment] 01/30/17 01/30/17 01/30/17 02:30 02:45 03:00 Temperature Pulse Rate 84 85 85 Pulse Rate [ Anterior Bilateral Throughout] Respiratory 16 16 25 H Rate Respiratory Rate [Anterior Bilateral Throughout] Blood Pressure 131/74 124/80 112/58 O2 Sat by Pulse 100 100 94 Oximetry O2 Sat by Pulse Oximetry [ Assessment] 01/30/17 01/30/17 01/30/17 03:15 03:30 03:45 Temperature 98.8 F Pulse Rate 84 84 86 Pulse Rate [ Anterior Bilateral Throughout] Respiratory 24 19 17 Rate Respiratory Rate [Anterior Bilateral Throughout] Blood Pressure 117/70 120/73 123/78 O2 Sat by Pulse 96 97 99 Oximetry O2 Sat by Pulse Oximetry [ Assessment] 01/30/17 01/30/17 01/30/17 04:00 04:15 04:26 Temperature Pulse Rate 84 84 84 Pulse Rate [ Anterior Bilateral Throughout] Respiratory 18 16 Rate Respiratory Rate [Anterior Bilateral Throughout] Blood Pressure 129/78 128/78 128/78 O2 Sat by Pulse 100 100 100 Oximetry O2 Sat by Pulse Oximetry [ Assessment] 01/30/17 01/30/17 01/30/17 04:30 04:45 05:00 Temperature Pulse Rate 85 84 85 Pulse Rate [ Anterior Bilateral Throughout] Respiratory 15 17 13 Rate Respiratory Rate [Anterior Bilateral Throughout] Blood Pressure 137/85 127/77 134/81 O2 Sat by Pulse 100 100 100 Oximetry O2 Sat by Pulse Oximetry [ Assessment] 01/30/17 01/30/17 01/30/17 05:15 05:30 05:45 Temperature Pulse Rate 85 88 86 Pulse Rate [ Anterior Bilateral Throughout] Respiratory 16 12 23 Rate Respiratory Rate [Anterior Bilateral Throughout] Blood Pressure 126/78 127/85 119/75 O2 Sat by Pulse 100 100 95 Oximetry O2 Sat by Pulse Oximetry [ Assessment] 01/30/17 01/30/17 01/30/17 05:57 05:58 06:00 Temperature Pulse Rate 85 86 88 Pulse Rate [ Anterior Bilateral Throughout] Respiratory 17 Rate Respiratory Rate [Anterior Bilateral Throughout] Blood Pressure 119/75 119/75 137/87 O2 Sat by Pulse 100 Oximetry O2 Sat by Pulse Oximetry [ Assessment] 01/30/17 01/30/17 01/30/17 06:15 08:00 08:31 Temperature 97.5 F L Pulse Rate 87 89 Pulse Rate [ Anterior Bilateral Throughout] Respiratory 17 19 Rate Respiratory Rate [Anterior Bilateral Throughout] Blood Pressure 134/81 115/74 O2 Sat by Pulse 100 98 100 Oximetry O2 Sat by Pulse Oximetry [ Assessment] 01/30/17 01/30/17 01/30/17 08:35 08:51 10:21 Temperature Pulse Rate 92 H Pulse Rate [ 87 94 H Anterior Bilateral Throughout] Respiratory Rate Respiratory 19 21 Rate [Anterior Bilateral Throughout] Blood Pressure 108/61 O2 Sat by Pulse Oximetry O2 Sat by Pulse Oximetry [ Assessment] - Lab 01/28/17 04:00 01/29/17 06:15 Most recent lab results ABG pH 7.450 pH Units (7.350-7.450) 12/05/16 Unknown ABG pCO2 29.6 mm Hg 12/05/16 Unknown ABG pO2 75.2 mm Hg (80.0-90.0) L 12/05/16 Unknown ABG HCO3 20.1 mmol/L (20.0-26.0) 12/05/16 Unknown ABG O2 Saturation 96.8 % (95.0-99.0) 12/05/16 Unknown Calcium 9.1 mg/dL (8.4-10.2) 01/29/17 06:15 Phosphorus 4.20 mg/dL (2.5-4.5) D 01/29/17 06:15 Magnesium 2.40 mg/dL (1.7-2.3) H 01/29/17 06:15 Urine Creatinine 19.7 mg/dL (0.1-20.0) 11/12/16 10:18 Urine Sodium 36 mEq/L 09/16/16 19:19 Urine Total Protein 16 mg/dL (5-11.8) H 09/16/16 19:19
--- NOTE | 2017-01-30 12:39 | Progress Note ---
Assessment and Plan Acute Hypoxemic Respiratory Failure (now with exacerbation and back on MVS) Hypertension (unable to receive p.o. meds) Atrial Fibrillation with RVR s/p tracheostomy Acute encephalopathy s/p CVA Oropharyngeal dysphagia Enterococcal bacteremia sepsis syndrome Sacral Decubitus Ulcer (s/p surgical debridement) Anemia Obesity JUANITA now on hemodialysis Enteric Fistula - continue to hold tube feeds due to persistent emesis; continue reglan at 5mg IV q6h - IR consulted for G-J tube - appreciate surgery input - continue fentanyl patch for pain issues especially s/p debridement - continue wound care per WCT and RN's (she is s/p surgical debridement) - continue anti-infectives per ID recs (on till 02/04 re wound sensitivities) - prn CRP & lactate levels if clinically indicated (Follow WBC also) - keep on with daily PSV trials and / or T-piece as tolerated (Tolerated only 5 minutes today) - continue TPN administration - continue scopolamine for secretion control - continue to wean FiO2 for sats > 94% - continue bronchodilators and pulmonary toilet - VAP bundle addressed - continue prn IV metorolol - continue metoprolol and amlodipine (hold for hypotension) - continue to follow electrolytes and correct as necessary - continue GI & VTE prophylaxis - Continue flu & pneumovax per protocol - ethics consult placed and pending .....she remains critically ill on life sustaining interventions including MVS and at risk for further deterioration including ....30' CCT today without overlap ....care plan discussed at length during team rounds ...[facility] prognosis remains guarded and this has intermittently been conveyed to family Subjective Date of service: 01/30/17 Principal diagnosis: Acute resp failure on MVS; S/P Acute CVA; Acute Encephalopathy; JUANITA Interval history: Patient is seen today for: Acute resp failure on MVS; S/P Acute CVA; Acute Encephalopathy; JUANITA Seen and examined at bedside; 24hour events reviewed; nursing and respiratory care staff consulted; no adverse overnight events reported to me; silvia remains critically ill and is still not tolerating weaning well; still with drainage from GI drains; AMS is persistent; No high grade fevers or chills Objective Vital Signs - 12hr 01/30/17 01/30/17 01/30/17 00:45 01:00 01:15 Temperature Pulse Rate 84 85 83 Pulse Rate [ Anterior Bilateral Throughout] Respiratory 18 14 17 Rate Respiratory Rate [Anterior Bilateral Throughout] Blood Pressure 120/72 135/78 118/72 O2 Sat by Pulse 100 100 100 Oximetry O2 Sat by Pulse Oximetry [ Assessment] 01/30/17 01/30/17 01/30/17 01:30 01:46 02:00 Temperature Pulse Rate 82 92 H 86 Pulse Rate [ 85 Anterior Bilateral Throughout] Respiratory 14 22 15 Rate Respiratory 17 Rate [Anterior Bilateral Throughout] Blood Pressure 131/77 156/123 136/79 O2 Sat by Pulse 100 100 100 Oximetry O2 Sat by Pulse Oximetry [ Assessment] 01/30/17 01/30/17 01/30/17 02:15 02:27 02:30 Temperature Pulse Rate 83 84 Pulse Rate [ 87 Anterior Bilateral Throughout] Respiratory 25 H 16 Rate Respiratory 17 Rate [Anterior Bilateral Throughout] Blood Pressure 138/69 131/74 O2 Sat by Pulse 88 100 Oximetry O2 Sat by Pulse 100 Oximetry [ Assessment] 01/30/17 01/30/17 01/30/17 02:45 03:00 03:15 Temperature Pulse Rate 85 85 84 Pulse Rate [ Anterior Bilateral Throughout] Respiratory 16 25 H 24 Rate Respiratory Rate [Anterior Bilateral Throughout] Blood Pressure 124/80 112/58 117/70 O2 Sat by Pulse 100 94 96 Oximetry O2 Sat by Pulse Oximetry [ Assessment] 01/30/17 01/30/17 01/30/17 03:30 03:45 04:00 Temperature 98.8 F Pulse Rate 84 86 84 Pulse Rate [ Anterior Bilateral Throughout] Respiratory 19 17 18 Rate Respiratory Rate [Anterior Bilateral Throughout] Blood Pressure 120/73 123/78 129/78 O2 Sat by Pulse 97 99 100 Oximetry O2 Sat by Pulse Oximetry [ Assessment] 01/30/17 01/30/17 01/30/17 04:15 04:26 04:30 Temperature Pulse Rate 84 84 85 Pulse Rate [ Anterior Bilateral Throughout] Respiratory 16 15 Rate Respiratory Rate [Anterior Bilateral Throughout] Blood Pressure 128/78 128/78 137/85 O2 Sat by Pulse 100 100 100 Oximetry O2 Sat by Pulse Oximetry [ Assessment] 01/30/17 01/30/17 01/30/17 04:45 05:00 05:15 Temperature Pulse Rate 84 85 85 Pulse Rate [ Anterior Bilateral Throughout] Respiratory 17 13 16 Rate Respiratory Rate [Anterior Bilateral Throughout] Blood Pressure 127/77 134/81 126/78 O2 Sat by Pulse 100 100 100 Oximetry O2 Sat by Pulse Oximetry [ Assessment] 01/30/17 01/30/17 01/30/17 05:30 05:45 05:57 Temperature Pulse Rate 88 86 85 Pulse Rate [ Anterior Bilateral Throughout] Respiratory 12 23 Rate Respiratory Rate [Anterior Bilateral Throughout] Blood Pressure 127/85 119/75 119/75 O2 Sat by Pulse 100 95 Oximetry O2 Sat by Pulse Oximetry [ Assessment] 01/30/17 01/30/17 01/30/17 05:58 06:00 06:15 Temperature Pulse Rate 86 88 87 Pulse Rate [ Anterior Bilateral Throughout] Respiratory 17 17 Rate Respiratory Rate [Anterior Bilateral Throughout] Blood Pressure 119/75 137/87 134/81 O2 Sat by Pulse 100 100 Oximetry O2 Sat by Pulse Oximetry [ Assessment] 01/30/17 01/30/17 01/30/17 06:30 06:45 07:00 Temperature Pulse Rate 87 86 86 Pulse Rate [ Anterior Bilateral Throughout] Respiratory 16 17 19 Rate Respiratory Rate [Anterior Bilateral Throughout] Blood Pressure 131/80 117/72 115/71 O2 Sat by Pulse 100 94 97 Oximetry O2 Sat by Pulse Oximetry [ Assessment] 01/30/17 01/30/17 01/30/17 07:15 07:30 07:45 Temperature Pulse Rate 84 85 87 Pulse Rate [ Anterior Bilateral Throughout] Respiratory 16 21 18 Rate Respiratory Rate [Anterior Bilateral Throughout] Blood Pressure 107/65 112/68 118/70 O2 Sat by Pulse 98 98 100 Oximetry O2 Sat by Pulse Oximetry [ Assessment] 01/30/17 01/30/17 01/30/17 08:00 08:15 08:30 Temperature 97.5 F L Pulse Rate 86 86 89 Pulse Rate [ Anterior Bilateral Throughout] Respiratory 19 18 18 Rate Respiratory Rate [Anterior Bilateral Throughout] Blood Pressure 112/66 107/62 115/74 O2 Sat by Pulse 100 99 100 Oximetry O2 Sat by Pulse Oximetry [ Assessment] 01/30/17 01/30/17 01/30/17 08:31 08:35 08:45 Temperature Pulse Rate 89 89 Pulse Rate [ 87 Anterior Bilateral Throughout] Respiratory 19 19 Rate Respiratory 19 Rate [Anterior Bilateral Throughout] Blood Pressure 115/74 110/59 O2 Sat by Pulse 100 99 Oximetry O2 Sat by Pulse Oximetry [ Assessment] 01/30/17 01/30/17 01/30/17 08:51 09:00 09:15 Temperature Pulse Rate 96 H 92 H Pulse Rate [ 94 H Anterior Bilateral Throughout] Respiratory 24 19 Rate Respiratory 21 Rate [Anterior Bilateral Throughout] Blood Pressure 123/66 105/60 O2 Sat by Pulse 100 100 Oximetry O2 Sat by Pulse Oximetry [ Assessment] 01/30/17 01/30/17 01/30/17 09:30 09:45 10:00 Temperature Pulse Rate 91 H 91 H 91 H Pulse Rate [ Anterior Bilateral Throughout] Respiratory 21 21 17 Rate Respiratory Rate [Anterior Bilateral Throughout] Blood Pressure 112/65 111/63 113/65 O2 Sat by Pulse 99 100 100 Oximetry O2 Sat by Pulse Oximetry [ Assessment] 01/30/17 01/30/17 01/30/17 10:15 10:21 10:30 Temperature Pulse Rate 90 92 H 97 H Pulse Rate [ Anterior Bilateral Throughout] Respiratory 23 12 Rate Respiratory Rate [Anterior Bilateral Throughout] Blood Pressure 108/61 108/61 119/84 O2 Sat by Pulse 100 100 Oximetry O2 Sat by Pulse Oximetry [ Assessment] 01/30/17 01/30/17 01/30/17 10:45 11:00 11:15 Temperature Pulse Rate 98 H 94 H 91 H Pulse Rate [ Anterior Bilateral Throughout] Respiratory 19 23 22 Rate Respiratory Rate [Anterior Bilateral Throughout] Blood Pressure 107/69 114/68 111/66 O2 Sat by Pulse 100 100 100 Oximetry O2 Sat by Pulse Oximetry [ Assessment] 01/30/17 01/30/17 01/30/17 11:30 11:45 12:00 Temperature 97.4 F L Pulse Rate 90 91 H 90 Pulse Rate [ Anterior Bilateral Throughout] Respiratory 16 23 20 Rate Respiratory Rate [Anterior Bilateral Throughout] Blood Pressure 110/66 114/71 119/75 O2 Sat by Pulse 100 100 100 Oximetry O2 Sat by Pulse Oximetry [ Assessment] 01/30/17 01/30/17 12:15 12:30 Temperature Pulse Rate 91 H 94 H Pulse Rate [ Anterior Bilateral Throughout] Respiratory 23 28 H Rate Respiratory Rate [Anterior Bilateral Throughout] Blood Pressure 119/75 125/80 O2 Sat by Pulse 100 100 Oximetry O2 Sat by Pulse Oximetry [ Assessment] Constitutional: appears uncomfortable, other (not tracking) Eyes: non-icteric, other (tracheostomy tube in midline of neck) ENT: oropharynx moist, oropharyngeal exudate pre Neck: supple, no lymphadenopathy, no JVD, other (no thyromegaly) Effort: mildly labored Ascultation: Bilateral: diminished breath sounds (right base), rhonchi (and referred upper airway sounds) Percussion: Right: dull (base), Bilateral: not dull Cardiovascular: regular rate and rhythm, other (no rubs / murmurs) Gastrointestinal: hypoactive bowel sounds, soft, non-tender, non-distended, other (RLQ & RUQ stomas with colostomy bags) Integumentary: decubitus ulcer (sacral; stage 4 s/p surgical debridement), other (no rash; no cellulitis; poor turgor) Extremities: no cyanosis, pulses normal, no ischemia or petechiae, edema (1+ bilaterally) Neurologic: pupils equal and round, unable to assess, other (encephalopathic) Psychiatric: other (unable to assess) CBC and BMP: 02/02/17 10:16 02/04/17 04:00 ABG, PT/INR, D-dimer: ABG POC ABG pH 7.436 (7.35-7.45) 01/20/17 12:17 ABG pH 7.450 pH Units (7.350-7.450) 12/05/16 Unknown POC ABG pCO2 35.3 (35-45) 01/20/17 12: ABG pCO2 29.6 mm Hg 12/05/16 Unknown POC ABG pO2 70 (80-105) L 01/20/17 12:17 ABG pO2 75.2 mm Hg (80.0-90.0) L 12/05/16 Unknown POC ABG HCO3 23.8 01/20/17 12: POC ABG Total CO2 25 01/20/17 12:17 POC ABG O2 Sat 94 01/20/17 12:17 ABG O2 Saturation 96.8 % (95.0-99.0) 12/05/16 Unknown PT/INR, D-dimer PT 15.4 Sec. (12.2-14.9) H 01/13/17 15:50 INR 1.16 (0.87-1.13) H 01/13/17 15:50 Abnormal lab findings: Abnormal Labs 09/03/16 09/03/16 09/03/16 00:03 00:10 00:10 WBC 13.9 H RBC 5.95 H Hgb Hct 44.0 H MCV 74 L MCH 22 L MCHC RDW 17.5 H Plt Count Lymph % (Auto) [place] % (Auto) Lymph # [place] # Baso # Seg Neutrophils % Seg Neuts % (Manual) Lymphocytes % (Manual) 54.0 H Monocytes % (Manual) Eosinophils % (Manual) Basophils % (Manual) Nucleated RBC % Seg Neutrophils # Seg Neutrophils # Man Lymphocytes # (Manual) 7.5 H Monocytes # (Manual) Eosinophils # (Manual) Basophils # (Manual) PT INR Fibrinogen dRVVT Confirm Interp Factor V Activity POC ABG pH POC ABG pCO2 POC ABG pO2 ABG pO2 ABG HCO3 ABG Base Excess ABG Hemoglobin Oxyhemoglobin Sodium Potassium 2.8 L* Chloride Carbon Dioxide 21 L BUN Creatinine 1.7 H Glucose 159 H POC Glucose 177 H Lactic Acid Calcium Phosphorus Magnesium Direct Bilirubin AST ALT Alkaline Phosphatase Lactate Dehydrogenase Troponin T C-Reactive Protein Total Protein Albumin Prealbumin Triglycerides Cholesterol LDL Cholesterol Direct HDL Cholesterol Urine pH Urine WBC (Auto) Urine Creatinine Urine Total Protein Fluid Total Protein Vancomycin Trough Rheumatoid Factor Complement C4 Miscellaneous Test Crossmatch 09/03/16 09/03/16 09/03/16 12:12 15:07 16:20 WBC RBC Hgb Hct MCV MCH MCHC RDW Plt Count Lymph % (Auto) [place] % (Auto) Lymph # [place] # Baso # Seg Neutrophils % Seg Neuts % (Manual) Lymphocytes % (Manual) Monocytes % (Manual) Eosinophils % (Manual) Basophils % (Manual) Nucleated RBC % Seg Neutrophils # Seg Neutrophils # Man Lymphocytes # (Manual) Monocytes # (Manual) Eosinophils # (Manual) Basophils # (Manual) PT INR Fibrinogen dRVVT Confirm Interp Factor V Activity POC ABG pH 7.452 H POC ABG pCO2 POC ABG pO2 ABG pO2 ABG HCO3 ABG Base Excess ABG Hemoglobin Oxyhemoglobin Sodium Potassium Chloride Carbon Dioxide BUN Creatinine Glucose POC Glucose 178 H Lactic Acid Calcium Phosphorus 2.20 L Magnesium 1.60 L Direct Bilirubin AST ALT Alkaline Phosphatase Lactate Dehydrogenase Troponin T C-Reactive Protein Total Protein Albumin Prealbumin Triglycerides Cholesterol LDL Cholesterol Direct HDL Cholesterol Urine pH Urine WBC (Auto) Urine Creatinine Urine Total Protein Fluid Total Protein Vancomycin Trough Rheumatoid Factor Complement C4 Miscellaneous Test Crossmatch 09/03/16 09/03/16 09/03/16 17:57 17:58 23:50 WBC RBC Hgb Hct MCV MCH MCHC RDW Plt Count Lymph % (Auto) [place] % (Auto) Lymph # [place] # Baso # Seg Neutrophils % Seg Neuts % (Manual) Lymphocytes % (Manual) Monocytes % (Manual) Eosinophils % (Manual) Basophils % (Manual) Nucleated RBC % Seg Neutrophils # Seg Neutrophils # Man Lymphocytes # (Manual) Monocytes # (Manual) Eosinophils # (Manual) Basophils # (Manual) PT INR Fibrinogen dRVVT Confirm Interp Factor V Activity POC ABG pH POC ABG pCO2 POC ABG pO2 ABG pO2 ABG HCO3 ABG Base Excess ABG Hemoglobin Oxyhemoglobin Sodium Potassium Chloride Carbon Dioxide BUN Creatinine Glucose POC Glucose 162 H 145 H Lactic Acid Calcium Phosphorus 2.30 L Magnesium Direct Bilirubin AST ALT Alkaline Phosphatase Lactate Dehydrogenase Troponin T C-Reactive Protein Total Protein Albumin Prealbumin Triglycerides Cholesterol LDL Cholesterol Direct HDL Cholesterol Urine pH Urine WBC (Auto) Urine Creatinine Urine Total Protein Fluid Total Protein Vancomycin Trough Rheumatoid Factor Complement C4 Miscellaneous Test Crossmatch 09/04/16 09/04/16 09/04/16 03:31 03:31 05:42 WBC RBC Hgb 9.7 L D Hct MCV 72 L MCH 23 L MCHC RDW 17.5 H Plt Count Lymph % (Auto) 11.1 L [place] % (Auto) Lymph # [place] # Baso # Seg Neutrophils % 84.3 H Seg Neuts % (Manual) Lymphocytes % (Manual) Monocytes % (Manual) Eosinophils % (Manual) Basophils % (Manual) Nucleated RBC % Seg Neutrophils # 8.9 H Seg Neutrophils # Man Lymphocytes # (Manual) Monocytes # (Manual) Eosinophils # (Manual) Basophils # (Manual) PT INR Fibrinogen dRVVT Confirm Interp Factor V Activity POC ABG pH POC ABG pCO2 POC ABG pO2 ABG pO2 ABG HCO3 ABG Base Excess ABG Hemoglobin Oxyhemoglobin Sodium 135 L Potassium 2.9 L* Chloride 97.2 L Carbon Dioxide 19 L BUN Creatinine 1.7 H Glucose 170 H POC Glucose 152 H Lactic Acid Calcium Phosphorus Magnesium Direct Bilirubin AST ALT Alkaline Phosphatase Lactate Dehydrogenase Troponin T C-Reactive Protein Total Protein Albumin Prealbumin Triglycerides 160 H Cholesterol LDL Cholesterol Direct HDL Cholesterol 31 L Urine pH Urine WBC (Auto) Urine Creatinine Urine Total Protein Fluid Total Protein Vancomycin Trough Rheumatoid Factor Complement C4 Miscellaneous Test Crossmatch 09/04/16 09/04/16 09/04/16 11:34 17:46 23:29 WBC RBC Hgb Hct MCV MCH MCHC RDW Plt Count Lymph % (Auto) [place] % (Auto) Lymph # [place] # Baso # Seg Neutrophils % Seg Neuts % (Manual) Lymphocytes % (Manual) Monocytes % (Manual) Eosinophils % (Manual) Basophils % (Manual) Nucleated RBC % Seg Neutrophils # Seg Neutrophils # Man Lymphocytes # (Manual) Monocytes # (Manual) Eosinophils # (Manual) Basophils # (Manual) PT INR Fibrinogen dRVVT Confirm Interp Factor V Activity POC ABG pH POC ABG pCO2 POC ABG pO2 ABG pO2 ABG HCO3 ABG Base Excess ABG Hemoglobin Oxyhemoglobin Sodium Potassium Chloride Carbon Dioxide BUN Creatinine Glucose POC Glucose 165 H 210 H 139 H Lactic Acid Calcium Phosphorus Magnesium Direct Bilirubin AST ALT Alkaline Phosphatase Lactate Dehydrogenase Troponin T C-Reactive Protein Total Protein Albumin Prealbumin Triglycerides Cholesterol LDL Cholesterol Direct HDL Cholesterol Urine pH Urine WBC (Auto) Urine Creatinine Urine Total Protein Fluid Total Protein Vancomycin Trough Rheumatoid Factor Complement C4 Miscellaneous Test Crossmatch 09/05/16 09/05/16 09/05/16 04:05 04:05 05:38 WBC RBC Hgb Hct MCV 76 L D MCH 23 L MCHC RDW 17.8 H Plt Count Lymph % (Auto) [place] % (Auto) Lymph # [place] # Baso # Seg Neutrophils % Seg Neuts % (Manual) Lymphocytes % (Manual) Monocytes % (Manual) Eosinophils % (Manual) Basophils % (Manual) Nucleated RBC % Seg Neutrophils # Seg Neutrophils # Man Lymphocytes # (Manual) Monocytes # (Manual) Eosinophils # (Manual) Basophils # (Manual) PT INR Fibrinogen dRVVT Confirm Interp Factor V Activity POC ABG pH POC ABG pCO2 POC ABG pO2 ABG pO2 ABG HCO3 ABG Base Excess ABG Hemoglobin Oxyhemoglobin Sodium 134 L Potassium Chloride Carbon Dioxide 18 L BUN Creatinine 1.8 H Glucose 192 H POC Glucose 175 H Lactic Acid Calcium Phosphorus Magnesium Direct Bilirubin AST ALT Alkaline Phosphatase Lactate Dehydrogenase Troponin T C-Reactive Protein Total Protein Albumin Prealbumin Triglycerides Cholesterol LDL Cholesterol Direct HDL Cholesterol Urine pH Urine WBC (Auto) Urine Creatinine Urine Total Protein Fluid Total Protein Vancomycin Trough Rheumatoid Factor Complement C4 Miscellaneous Test Crossmatch 09/05/16 09/05/16 09/05/16 11:38 17:48 23:22 WBC RBC Hgb Hct MCV MCH MCHC RDW Plt Count Lymph % (Auto) [place] % (Auto) Lymph # [place] # Baso # Seg Neutrophils % Seg Neuts % (Manual) Lymphocytes % (Manual) Monocytes % (Manual) Eosinophils % (Manual) Basophils % (Manual) Nucleated RBC % Seg Neutrophils # Seg Neutrophils # Man Lymphocytes # (Manual) Monocytes # (Manual) Eosinophils # (Manual) Basophils # (Manual) PT INR Fibrinogen dRVVT Confirm Interp Factor V Activity POC ABG pH POC ABG pCO2 POC ABG pO2 ABG pO2 ABG HCO3 ABG Base Excess ABG Hemoglobin Oxyhemoglobin Sodium Potassium Chloride Carbon Dioxide BUN Creatinine Glucose POC Glucose 164 H 186 H 195 H Lactic Acid Calcium Phosphorus Magnesium Direct Bilirubin AST ALT Alkaline Phosphatase Lactate Dehydrogenase Troponin T C-Reactive Protein Total Protein Albumin Prealbumin Triglycerides Cholesterol LDL Cholesterol Direct HDL Cholesterol Urine pH Urine WBC (Auto) Urine Creatinine Urine Total Protein Fluid Total Protein Vancomycin Trough Rheumatoid Factor Complement C4 Miscellaneous Test Crossmatch 09/06/16 09/06/16 09/06/16 04:12 05:59 07:32 WBC RBC Hgb Hct MCV MCH MCHC RDW Plt Count Lymph % (Auto) [place] % (Auto) Lymph # [place] # Baso # Seg Neutrophils % Seg Neuts % (Manual) Lymphocytes % (Manual) Monocytes % (Manual) Eosinophils % (Manual) Basophils % (Manual) Nucleated RBC % Seg Neutrophils # Seg Neutrophils # Man Lymphocytes # (Manual) Monocytes # (Manual) Eosinophils # (Manual) Basophils # (Manual) PT INR Fibrinogen dRVVT Confirm Interp Factor V Activity POC ABG pH 7.514 H POC ABG pCO2 29.1 L POC ABG pO2 72 L ABG pO2 ABG HCO3 ABG Base Excess ABG Hemoglobin Oxyhemoglobin Sodium 133 L Potassium 3.4 L Chloride 94.9 L Carbon Dioxide 19 L BUN 30 H Creatinine 2.1 H Glucose 139 H POC Glucose 146 H Lactic Acid Calcium Phosphorus Magnesium Direct Bilirubin AST ALT Alkaline Phosphatase Lactate Dehydrogenase Troponin T C-Reactive Protein Total Protein Albumin Prealbumin Triglycerides Cholesterol LDL Cholesterol Direct HDL Cholesterol Urine pH Urine WBC (Auto) Urine Creatinine Urine Total Protein Fluid Total Protein Vancomycin Trough Rheumatoid Factor Complement C4 Miscellaneous Test Crossmatch 09/06/16 09/06/16 09/06/16 11:57 17:58 19:02 WBC RBC Hgb Hct MCV MCH MCHC RDW Plt Count Lymph % (Auto) [place] % (Auto) Lymph # [place] # Baso # Seg Neutrophils % Seg Neuts % (Manual) Lymphocytes % (Manual) Monocytes % (Manual) Eosinophils % (Manual) Basophils % (Manual) Nucleated RBC % Seg Neutrophils # Seg Neutrophils # Man Lymphocytes # (Manual) Monocytes # (Manual) Eosinophils # (Manual) Basophils # (Manual) PT INR Fibrinogen dRVVT Confirm Interp Factor V Activity POC ABG pH 7.465 H POC ABG pCO2 32.0 L POC ABG pO2 ABG pO2 ABG HCO3 ABG Base Excess ABG Hemoglobin Oxyhemoglobin Sodium Potassium Chloride Carbon Dioxide BUN Creatinine Glucose POC Glucose 165 H 160 H Lactic Acid Calcium Phosphorus Magnesium Direct Bilirubin AST ALT Alkaline Phosphatase Lactate Dehydrogenase Troponin T C-Reactive Protein Total Protein Albumin Prealbumin Triglycerides Cholesterol LDL Cholesterol Direct HDL Cholesterol Urine pH Urine WBC (Auto) Urine Creatinine Urine Total Protein Fluid Total Protein Vancomycin Trough Rheumatoid Factor Complement C4 Miscellaneous Test Crossmatch 09/06/16 09/07/16 09/07/16 23:45 02:47 02:47 WBC RBC Hgb Hct MCV MCH MCHC RDW Plt Count Lymph % (Auto) [place] % (Auto) Lymph # [place] # Baso # Seg Neutrophils % Seg Neuts % (Manual) Lymphocytes % (Manual) Monocytes % (Manual) Eosinophils % (Manual) Basophils % (Manual) Nucleated RBC % Seg Neutrophils # Seg Neutrophils # Man Lymphocytes # (Manual) Monocytes # (Manual) Eosinophils # (Manual) Basophils # (Manual) PT INR Fibrinogen dRVVT Confirm Interp Factor V Activity POC ABG pH POC ABG pCO2 POC ABG pO2 ABG pO2 ABG HCO3 ABG Base Excess ABG Hemoglobin Oxyhemoglobin Sodium Potassium Chloride Carbon Dioxide BUN Creatinine Glucose POC Glucose 204 H Lactic Acid Calcium Phosphorus Magnesium Direct Bilirubin AST ALT Alkaline Phosphatase Lactate Dehydrogenase Troponin T C-Reactive Protein Total Protein Albumin Prealbumin Triglycerides Cholesterol LDL Cholesterol Direct HDL Cholesterol Urine pH Urine WBC (Auto) 68.0 H Urine Creatinine 106.1 H Urine Total Protein Fluid Total Protein Vancomycin Trough Rheumatoid Factor Complement C4 Miscellaneous Test Crossmatch 09/07/16 09/07/16 09/07/16 04:50 06:19 06:39 WBC RBC Hgb Hct MCV MCH MCHC RDW Plt Count Lymph % (Auto) [place] % (Auto) Lymph # [place] # Baso # Seg Neutrophils % Seg Neuts % (Manual) Lymphocytes % (Manual) Monocytes % (Manual) Eosinophils % (Manual) Basophils % (Manual) Nucleated RBC % Seg Neutrophils # Seg Neutrophils # Man Lymphocytes # (Manual) Monocytes # (Manual) Eosinophils # (Manual) Basophils # (Manual) PT INR Fibrinogen dRVVT Confirm Interp Factor V Activity POC ABG pH 7.457 H POC ABG pCO2 32.1 L POC ABG pO2 76 L ABG pO2 ABG HCO3 ABG Base Excess ABG Hemoglobin Oxyhemoglobin Sodium 132 L Potassium Chloride 94.7 L Carbon Dioxide BUN 53 H Creatinine 2.9 H Glucose 151 H POC Glucose 149 H Lactic Acid Calcium Phosphorus Magnesium Direct Bilirubin AST ALT Alkaline Phosphatase Lactate Dehydrogenase Troponin T C-Reactive Protein Total Protein Albumin Prealbumin Triglycerides Cholesterol LDL Cholesterol Direct HDL Cholesterol Urine pH Urine WBC (Auto) Urine Creatinine Urine Total Protein Fluid Total Protein Vancomycin Trough Rheumatoid Factor Complement C4 Miscellaneous Test Crossmatch 09/07/16 09/07/16 09/07/16 09:20 11:43 11:43 WBC 19.4 H RBC Hgb 8.3 L Hct 26.4 L D MCV 72 L D MCH 22 L MCHC RDW 17.9 H Plt Count Lymph % (Auto) 8.5 L [place] % (Auto) Lymph # [place] # 1.0 H Baso # Seg Neutrophils % 85.8 H Seg Neuts % (Manual) Lymphocytes % (Manual) Monocytes % (Manual) Eosinophils % (Manual) Basophils % (Manual) Nucleated RBC % Seg Neutrophils # 16.6 H Seg Neutrophils # Man Lymphocytes # (Manual) Monocytes # (Manual) Eosinophils # (Manual) Basophils # (Manual) PT INR Fibrinogen dRVVT Confirm Interp Factor V Activity POC ABG pH POC ABG pCO2 POC ABG pO2 ABG pO2 ABG HCO3 ABG Base Excess ABG Hemoglobin Oxyhemoglobin Sodium 134 L Potassium Chloride 97.2 L Carbon Dioxide 20 L BUN 58 H Creatinine 2.9 H Glucose 147 H POC Glucose Lactic Acid Calcium Phosphorus 2.40 L Magnesium 2.40 H Direct Bilirubin AST ALT Alkaline Phosphatase Lactate Dehydrogenase Troponin T C-Reactive Protein Total Protein 5.8 L Albumin 2.2 L Prealbumin Triglycerides Cholesterol LDL Cholesterol Direct HDL Cholesterol Urine pH Urine WBC (Auto) Urine Creatinine Urine Total Protein Fluid Total Protein Vancomycin Trough Rheumatoid Factor Complement C4 58 H Miscellaneous Test Crossmatch 09/07/16 09/07/16 09/07/16 11:50 16:00 17:31 WBC RBC Hgb Hct MCV MCH MCHC RDW Plt Count Lymph % (Auto) [place] % (Auto) Lymph # [place] # Baso # Seg Neutrophils % Seg Neuts % (Manual) Lymphocytes % (Manual) Monocytes % (Manual) Eosinophils % (Manual) Basophils % (Manual) Nucleated RBC % Seg Neutrophils # Seg Neutrophils # Man Lymphocytes # (Manual) Monocytes # (Manual) Eosinophils # (Manual) Basophils # (Manual) PT INR Fibrinogen dRVVT Confirm Interp Factor V Activity POC ABG pH POC ABG pCO2 POC ABG pO2 158 H ABG pO2 ABG HCO3 ABG Base Excess ABG Hemoglobin Oxyhemoglobin Sodium Potassium Chloride Carbon Dioxide BUN Creatinine Glucose POC Glucose 175 H Lactic Acid Calcium Phosphorus Magnesium Direct Bilirubin AST ALT Alkaline Phosphatase Lactate Dehydrogenase Troponin T C-Reactive Protein Total Protein Albumin Prealbumin Triglycerides Cholesterol LDL Cholesterol Direct HDL Cholesterol Urine pH Urine WBC (Auto) Urine Creatinine 66.3 H Urine Total Protein Fluid Total Protein Vancomycin Trough Rheumatoid Factor Complement C4 Miscellaneous Test Crossmatch 09/07/16 09/08/16 09/08/16 23:50 05:46 06:18 WBC 17.8 H RBC 3.58 L Hgb 8.1 L Hct 25.5 L MCV 71 L MCH 23 L MCHC RDW 18.4 H Plt Count Lymph % (Auto) [place] % (Auto) Lymph # [place] # Baso # Seg Neutrophils % Seg Neuts % (Manual) 92.0 H Lymphocytes % (Manual) 6.0 L Monocytes % (Manual) Eosinophils % (Manual) Basophils % (Manual) Nucleated RBC % Seg Neutrophils # Seg Neutrophils # Man 16.4 H Lymphocytes # (Manual) 1.1 L Monocytes # (Manual) Eosinophils # (Manual) Basophils # (Manual) PT INR Fibrinogen dRVVT Confirm Interp Factor V Activity POC ABG pH POC ABG pCO2 34.3 L POC ABG pO2 71 L ABG pO2 ABG HCO3 ABG Base Excess ABG Hemoglobin Oxyhemoglobin Sodium Potassium Chloride Carbon Dioxide BUN Creatinine Glucose POC Glucose 216 H Lactic Acid Calcium Phosphorus Magnesium Direct Bilirubin AST ALT Alkaline Phosphatase Lactate Dehydrogenase Troponin T C-Reactive Protein Total Protein Albumin Prealbumin Triglycerides Cholesterol LDL Cholesterol Direct HDL Cholesterol Urine pH Urine WBC (Auto) Urine Creatinine Urine Total Protein Fluid Total Protein Vancomycin Trough Rheumatoid Factor Complement C4 Miscellaneous Test Crossmatch 09/08/16 09/08/16 09/08/16 06:18 06:51 10:55 WBC RBC Hgb Hct MCV MCH MCHC RDW Plt Count Lymph % (Auto) [place] % (Auto) Lymph # [place] # Baso # Seg Neutrophils % Seg Neuts % (Manual) Lymphocytes % (Manual) Monocytes % (Manual) Eosinophils % (Manual) Basophils % (Manual) Nucleated RBC % Seg Neutrophils # Seg Neutrophils # Man Lymphocytes # (Manual) Monocytes # (Manual) Eosinophils # (Manual) Basophils # (Manual) PT INR Fibrinogen dRVVT Confirm Interp Factor V Activity POC ABG pH POC ABG pCO2 POC ABG pO2 ABG pO2 ABG HCO3 ABG Base Excess ABG Hemoglobin Oxyhemoglobin Sodium 133 L Potassium Chloride 96.9 L Carbon Dioxide 20 L BUN 63 H Creatinine 2.7 H Glucose 195 H POC Glucose 204 H 169 H Lactic Acid Calcium Phosphorus Magnesium Direct Bilirubin AST ALT Alkaline Phosphatase Lactate Dehydrogenase Troponin T C-Reactive Protein Total Protein Albumin Prealbumin Triglycerides Cholesterol LDL Cholesterol Direct HDL Cholesterol Urine pH Urine WBC (Auto) Urine Creatinine Urine Total Protein Fluid Total Protein Vancomycin Trough Rheumatoid Factor Complement C4 Miscellaneous Test Crossmatch 09/08/16 09/08/16 09/08/16 11:48 11:48 11:48 WBC RBC Hgb Hct MCV MCH MCHC RDW Plt Count Lymph % (Auto) [place] % (Auto) Lymph # [place] # Baso # Seg Neutrophils % Seg Neuts % (Manual) Lymphocytes % (Manual) Monocytes % (Manual) Eosinophils % (Manual) Basophils % (Manual) Nucleated RBC % Seg Neutrophils # Seg Neutrophils # Man Lymphocytes # (Manual) Monocytes # (Manual) Eosinophils # (Manual) Basophils # (Manual) PT INR Fibrinogen 750 H dRVVT Confirm Interp Factor V Activity POC ABG pH POC ABG pCO2 POC ABG pO2 ABG pO2 ABG HCO3 ABG Base Excess ABG Hemoglobin Oxyhemoglobin Sodium Potassium Chloride Carbon Dioxide BUN Creatinine Glucose POC Glucose Lactic Acid Calcium Phosphorus Magnesium Direct Bilirubin AST ALT Alkaline Phosphatase Lactate Dehydrogenase Troponin T C-Reactive Protein 15.70 H Total Protein Albumin Prealbumin Triglycerides Cholesterol LDL Cholesterol Direct HDL Cholesterol Urine pH Urine WBC (Auto) Urine Creatinine Urine Total Protein Fluid Total Protein Vancomycin Trough Rheumatoid Factor 24 H Complement C4 Miscellaneous Test Crossmatch 09/08/16 09/08/16 09/09/16 15:35 18:25 00:24 WBC RBC Hgb Hct MCV MCH MCHC RDW Plt Count Lymph % (Auto) [place] % (Auto) Lymph # [place] # Baso # Seg Neutrophils % Seg Neuts % (Manual) Lymphocytes % (Manual) Monocytes % (Manual) Eosinophils % (Manual) Basophils % (Manual) Nucleated RBC % Seg Neutrophils # Seg Neutrophils # Man Lymphocytes # (Manual) Monocytes # (Manual) Eosinophils # (Manual) Basophils # (Manual) PT INR Fibrinogen dRVVT Confirm Interp Factor V Activity 182 H POC ABG pH POC ABG pCO2 POC ABG pO2 ABG pO2 ABG HCO3 ABG Base Excess ABG Hemoglobin Oxyhemoglobin Sodium Potassium Chloride Carbon Dioxide BUN Creatinine Glucose POC Glucose 184 H 216 H Lactic Acid Calcium Phosphorus Magnesium Direct Bilirubin AST ALT Alkaline Phosphatase Lactate Dehydrogenase Troponin T C-Reactive Protein Total Protein Albumin Prealbumin Triglycerides Cholesterol LDL Cholesterol Direct HDL Cholesterol Urine pH Urine WBC (Auto) Urine Creatinine Urine Total Protein Fluid Total Protein Vancomycin Trough Rheumatoid Factor Complement C4 Miscellaneous Test Crossmatch 09/09/16 09/09/16 09/09/16 03:00 03:00 04:04 WBC 27.9 H RBC Hgb 8.7 L Hct 28.1 L MCV 72 L MCH 22 L MCHC RDW 18.4 H Plt Count 485 H Lymph % (Auto) [place] % (Auto) Lymph # [place] # Baso # Seg Neutrophils % Seg Neuts % (Manual) 77.0 H Lymphocytes % (Manual) 9.0 L Monocytes % (Manual) Eosinophils % (Manual) Basophils % (Manual) Nucleated RBC % Seg Neutrophils # Seg Neutrophils # Man 21.5 H Lymphocytes # (Manual) Monocytes # (Manual) 2.0 H Eosinophils # (Manual) Basophils # (Manual) PT INR Fibrinogen dRVVT Confirm Interp Factor V Activity POC ABG pH POC ABG pCO2 POC ABG pO2 121 H ABG pO2 ABG HCO3 ABG Base Excess ABG Hemoglobin Oxyhemoglobin Sodium 135 L Potassium Chloride 96.3 L Carbon Dioxide 21 L BUN 83 H Creatinine 3.0 H Glucose 135 H POC Glucose Lactic Acid Calcium Phosphorus Magnesium Direct Bilirubin AST ALT Alkaline Phosphatase Lactate Dehydrogenase Troponin T C-Reactive Protein Total Protein Albumin Prealbumin Triglycerides Cholesterol LDL Cholesterol Direct HDL Cholesterol Urine pH Urine WBC (Auto) Urine Creatinine Urine Total Protein Fluid Total Protein Vancomycin Trough Rheumatoid Factor Complement C4 Miscellaneous Test Crossmatch 09/09/16 09/09/16 09/09/16 05:41 11:55 14:13 WBC RBC Hgb Hct MCV MCH MCHC RDW Plt Count Lymph % (Auto) [place] % (Auto) Lymph # [place] # Baso # Seg Neutrophils % Seg Neuts % (Manual) Lymphocytes % (Manual) Monocytes % (Manual) Eosinophils % (Manual) Basophils % (Manual) Nucleated RBC % Seg Neutrophils # Seg Neutrophils # Man Lymphocytes # (Manual) Monocytes # (Manual) Eosinophils # (Manual) Basophils # (Manual) PT INR Fibrinogen dRVVT Confirm Interp Factor V Activity POC ABG pH POC ABG pCO2 POC ABG pO2 ABG pO2 ABG HCO3 ABG Base Excess ABG Hemoglobin Oxyhemoglobin Sodium Potassium Chloride Carbon Dioxide BUN Creatinine Glucose POC Glucose 155 H 186 H Lactic Acid Calcium Phosphorus Magnesium Direct Bilirubin AST ALT Alkaline Phosphatase Lactate Dehydrogenase Troponin T C-Reactive Protein Total Protein Albumin Prealbumin Triglycerides Cholesterol LDL Cholesterol Direct HDL Cholesterol Urine pH Urine WBC (Auto) 25.0 H Urine Creatinine Urine Total Protein Fluid Total Protein Vancomycin Trough Rheumatoid Factor Complement C4 Miscellaneous Test Crossmatch 09/09/16 09/09/16 09/10/16 17:33 23:13 05:09 WBC RBC Hgb Hct MCV MCH MCHC RDW Plt Count Lymph % (Auto) [place] % (Auto) Lymph # [place] # Baso # Seg Neutrophils % Seg Neuts % (Manual) Lymphocytes % (Manual) Monocytes % (Manual) Eosinophils % (Manual) Basophils % (Manual) Nucleated RBC % Seg Neutrophils # Seg Neutrophils # Man Lymphocytes # (Manual) Monocytes # (Manual) Eosinophils # (Manual) Basophils # (Manual) PT INR Fibrinogen dRVVT Confirm Interp Factor V Activity POC ABG pH POC ABG pCO2 POC ABG pO2 74 L ABG pO2 ABG HCO3 ABG Base Excess ABG Hemoglobin Oxyhemoglobin Sodium Potassium Chloride Carbon Dioxide BUN Creatinine Glucose POC Glucose 211 H 215 H Lactic Acid Calcium Phosphorus Magnesium Direct Bilirubin AST ALT Alkaline Phosphatase Lactate Dehydrogenase Troponin T C-Reactive Protein Total Protein Albumin Prealbumin Triglycerides Cholesterol LDL Cholesterol Direct HDL Cholesterol Urine pH Urine WBC (Auto) Urine Creatinine Urine Total Protein Fluid Total Protein Vancomycin Trough Rheumatoid Factor Complement C4 Miscellaneous Test Crossmatch 09/10/16 09/10/16 09/10/16 05:17 05:17 11:31 WBC 15.8 H RBC 3.25 L Hgb 7.3 L Hct 22.9 L MCV 71 L MCH 23 L MCHC RDW 18.4 H Plt Count Lymph % (Auto) [place] % (Auto) Lymph # [place] # Baso # Seg Neutrophils % Seg Neuts % (Manual) 91.0 H Lymphocytes % (Manual) 4.0 L Monocytes % (Manual) Eosinophils % (Manual) Basophils % (Manual) Nucleated RBC % Seg Neutrophils # Seg Neutrophils # Man 14.4 H Lymphocytes # (Manual) 0.6 L Monocytes # (Manual) Eosinophils # (Manual) Basophils # (Manual) PT INR Fibrinogen dRVVT Confirm Interp Factor V Activity POC ABG pH POC ABG pCO2 POC ABG pO2 ABG pO2 ABG HCO3 ABG Base Excess ABG Hemoglobin Oxyhemoglobin Sodium Potassium Chloride Carbon Dioxide 21 L BUN 93 H Creatinine 2.9 H Glucose 146 H POC Glucose 188 H Lactic Acid Calcium 8.1 L Phosphorus Magnesium Direct Bilirubin AST ALT Alkaline Phosphatase Lactate Dehydrogenase Troponin T C-Reactive Protein Total Protein Albumin Prealbumin Triglycerides Cholesterol LDL Cholesterol Direct HDL Cholesterol Urine pH Urine WBC (Auto) Urine Creatinine Urine Total Protein Fluid Total Protein Vancomycin Trough Rheumatoid Factor Complement C4 Miscellaneous Test Crossmatch 09/10/16 09/10/16 09/10/16 13:17 17:20 23:32 WBC RBC Hgb Hct MCV MCH MCHC RDW Plt Count Lymph % (Auto) [place] % (Auto) Lymph # [place] # Baso # Seg Neutrophils % Seg Neuts % (Manual) Lymphocytes % (Manual) Monocytes % (Manual) Eosinophils % (Manual) Basophils % (Manual) Nucleated RBC % Seg Neutrophils # Seg Neutrophils # Man Lymphocytes # (Manual) Monocytes # (Manual) Eosinophils # (Manual) Basophils # (Manual) PT INR Fibrinogen dRVVT Confirm Interp Factor V Activity POC ABG pH POC ABG pCO2 POC ABG pO2 ABG pO2 ABG HCO3 ABG Base Excess ABG Hemoglobin Oxyhemoglobin Sodium Potassium Chloride Carbon Dioxide BUN Creatinine Glucose POC Glucose 199 H 186 H Lactic Acid Calcium Phosphorus Magnesium Direct Bilirubin AST ALT Alkaline Phosphatase Lactate Dehydrogenase Troponin T C-Reactive Protein Total Protein Albumin Prealbumin Triglycerides Cholesterol LDL Cholesterol Direct HDL Cholesterol Urine pH Urine WBC (Auto) Urine Creatinine Urine Total Protein Fluid Total Protein Vancomycin Trough Rheumatoid Factor Complement C4 Miscellaneous Test Crossmatch See Detail 09/11/16 09/11/16 09/11/16 05:10 05:10 05:17 WBC 28.4 H RBC Hgb 9.2 L Hct 29.3 L D MCV 73 L MCH 23 L MCHC RDW 18.9 H Plt Count 452 H Lymph % (Auto) [place] % (Auto) Lymph # [place] # Baso # Seg Neutrophils % Seg Neuts % (Manual) 89.5 H Lymphocytes % (Manual) 2.0 L Monocytes % (Manual) Eosinophils % (Manual) Basophils % (Manual) Nucleated RBC % Seg Neutrophils # Seg Neutrophils # Man 25.4 H Lymphocytes # (Manual) 0.6 L Monocytes # (Manual) 1.3 H Eosinophils # (Manual) Basophils # (Manual) PT INR Fibrinogen dRVVT Confirm Interp Factor V Activity POC ABG pH POC ABG pCO2 POC ABG pO2 ABG pO2 ABG HCO3 ABG Base Excess ABG Hemoglobin Oxyhemoglobin Sodium 136 L Potassium Chloride Carbon Dioxide 18 L BUN 107 H Creatinine 2.6 H Glucose 187 H POC Glucose 230 H Lactic Acid Calcium 8.3 L Phosphorus Magnesium Direct Bilirubin AST ALT Alkaline Phosphatase Lactate Dehydrogenase Troponin T C-Reactive Protein Total Protein Albumin Prealbumin Triglycerides Cholesterol LDL Cholesterol Direct HDL Cholesterol Urine pH Urine WBC (Auto) Urine Creatinine Urine Total Protein Fluid Total Protein Vancomycin Trough Rheumatoid Factor Complement C4 Miscellaneous Test Crossmatch 09/11/16 09/11/16 09/11/16 05:55 12:02 17:32 WBC RBC Hgb Hct MCV MCH MCHC RDW Plt Count Lymph % (Auto) [place] % (Auto) Lymph # [place] # Baso # Seg Neutrophils % Seg Neuts % (Manual) Lymphocytes % (Manual) Monocytes % (Manual) Eosinophils % (Manual) Basophils % (Manual) Nucleated RBC % Seg Neutrophils # Seg Neutrophils # Man Lymphocytes # (Manual) Monocytes # (Manual) Eosinophils # (Manual) Basophils # (Manual) PT INR Fibrinogen dRVVT Confirm Interp Factor V Activity POC ABG pH POC ABG pCO2 33.8 L POC ABG pO2 ABG pO2 ABG HCO3 ABG Base Excess ABG Hemoglobin Oxyhemoglobin Sodium Potassium Chloride Carbon Dioxide BUN Creatinine Glucose POC Glucose 191 H 239 H Lactic Acid Calcium Phosphorus Magnesium Direct Bilirubin AST ALT Alkaline Phosphatase Lactate Dehydrogenase Troponin T C-Reactive Protein Total Protein Albumin Prealbumin Triglycerides Cholesterol LDL Cholesterol Direct HDL Cholesterol Urine pH Urine WBC (Auto) Urine Creatinine Urine Total Protein Fluid Total Protein Vancomycin Trough Rheumatoid Factor Complement C4 Miscellaneous Test Crossmatch 09/11/16 09/12/16 09/12/16 23:52 05:09 05:32 WBC RBC Hgb Hct MCV MCH MCHC RDW Plt Count Lymph % (Auto) [place] % (Auto) Lymph # [place] # Baso # Seg Neutrophils % Seg Neuts % (Manual) Lymphocytes % (Manual) Monocytes % (Manual) Eosinophils % (Manual) Basophils % (Manual) Nucleated RBC % Seg Neutrophils # Seg Neutrophils # Man Lymphocytes # (Manual) Monocytes # (Manual) Eosinophils # (Manual) Basophils # (Manual) PT INR Fibrinogen dRVVT Confirm Interp Factor V Activity POC ABG pH POC ABG pCO2 34.6 L POC ABG pO2 ABG pO2 ABG HCO3 ABG Base Excess ABG Hemoglobin Oxyhemoglobin Sodium Potassium Chloride Carbon Dioxide BUN Creatinine Glucose POC Glucose 265 H 184 H Lactic Acid Calcium Phosphorus Magnesium Direct Bilirubin AST ALT Alkaline Phosphatase Lactate Dehydrogenase Troponin T C-Reactive Protein Total Protein Albumin Prealbumin Triglycerides Cholesterol LDL Cholesterol Direct HDL Cholesterol Urine pH Urine WBC (Auto) Urine Creatinine Urine Total Protein Fluid Total Protein Vancomycin Trough Rheumatoid Factor Complement C4 Miscellaneous Test Crossmatch 09/12/16 09/12/16 09/12/16 06:45 06:45 07:22 WBC 31.7 H RBC 3.54 L Hgb 8.3 L Hct 25.9 L MCV 73 L MCH 23 L MCHC RDW 18.9 H Plt Count Lymph % (Auto) [place] % (Auto) Lymph # [place] # Baso # Seg Neutrophils % Seg Neuts % (Manual) 88.5 H Lymphocytes % (Manual) 4.5 L Monocytes % (Manual) Eosinophils % (Manual) Basophils % (Manual) Nucleated RBC % Seg Neutrophils # Seg Neutrophils # Man 28.1 H Lymphocytes # (Manual) Monocytes # (Manual) 1.0 H Eosinophils # (Manual) Basophils # (Manual) PT INR Fibrinogen dRVVT Confirm Interp Factor V Activity POC ABG pH POC ABG pCO2 POC ABG pO2 ABG pO2 ABG HCO3 ABG Base Excess ABG Hemoglobin Oxyhemoglobin Sodium Potassium Chloride Carbon Dioxide 20 L BUN 115 H Creatinine 2.7 H Glucose 165 H POC Glucose Lactic Acid Calcium 8.0 L Phosphorus Magnesium Direct Bilirubin AST ALT Alkaline Phosphatase Lactate Dehydrogenase Troponin T C-Reactive Protein Total Protein Albumin Prealbumin Triglycerides 217 H Cholesterol LDL Cholesterol Direct HDL Cholesterol Urine pH Urine WBC (Auto) Urine Creatinine Urine Total Protein Fluid Total Protein Vancomycin Trough Rheumatoid Factor Complement C4 Miscellaneous Test Crossmatch 09/12/16 09/12/16 09/12/16 07:22 09:59 12:21 WBC RBC Hgb Hct MCV MCH MCHC RDW Plt Count Lymph % (Auto) [place] % (Auto) Lymph # [place] # Baso # Seg Neutrophils % Seg Neuts % (Manual) Lymphocytes % (Manual) Monocytes % (Manual) Eosinophils % (Manual) Basophils % (Manual) Nucleated RBC % Seg Neutrophils # Seg Neutrophils # Man Lymphocytes # (Manual) Monocytes # (Manual) Eosinophils # (Manual) Basophils # (Manual) PT INR Fibrinogen dRVVT Confirm Interp Positive H Factor V Activity POC ABG pH POC ABG pCO2 POC ABG pO2 ABG pO2 ABG HCO3 ABG Base Excess ABG Hemoglobin Oxyhemoglobin Sodium Potassium Chloride Carbon Dioxide BUN Creatinine Glucose POC Glucose 224 H Lactic Acid Calcium Phosphorus Magnesium Direct Bilirubin AST ALT Alkaline Phosphatase Lactate Dehydrogenase Troponin T C-Reactive Protein 1.70 H Total Protein Albumin Prealbumin Triglycerides Cholesterol LDL Cholesterol Direct HDL Cholesterol Urine pH Urine WBC (Auto) Urine Creatinine Urine Total Protein Fluid Total Protein Vancomycin Trough Rheumatoid Factor Complement C4 Miscellaneous Test Crossmatch 09/12/16 09/12/16 09/13/16 16:51 23:28 04:00 WBC 45.0 H* RBC Hgb 9.4 L Hct MCV 75 L MCH 23 L MCHC RDW 19.0 H Plt Count 470 H Lymph % (Auto) [place] % (Auto) Lymph # [place] # Baso # Seg Neutrophils % Seg Neuts % (Manual) 89.0 H Lymphocytes % (Manual) 5.0 L Monocytes % (Manual) Eosinophils % (Manual) Basophils % (Manual) Nucleated RBC % Seg Neutrophils # Seg Neutrophils # Man 40.1 H Lymphocytes # (Manual) Monocytes # (Manual) Eosinophils # (Manual) Basophils # (Manual) PT INR Fibrinogen dRVVT Confirm Interp Factor V Activity POC ABG pH POC ABG pCO2 POC ABG pO2 ABG pO2 ABG HCO3 ABG Base Excess ABG Hemoglobin Oxyhemoglobin Sodium Potassium Chloride Carbon Dioxide BUN Creatinine Glucose POC Glucose 169 H 150 H Lactic Acid Calcium Phosphorus Magnesium Direct Bilirubin AST ALT Alkaline Phosphatase Lactate Dehydrogenase Troponin T C-Reactive Protein Total Protein Albumin Prealbumin Triglycerides Cholesterol LDL Cholesterol Direct HDL Cholesterol Urine pH Urine WBC (Auto) Urine Creatinine Urine Total Protein Fluid Total Protein Vancomycin Trough Rheumatoid Factor Complement C4 Miscellaneous Test Crossmatch 09/13/16 09/13/16 09/13/16 04:00 11:26 17:31 WBC RBC Hgb Hct MCV MCH MCHC RDW Plt Count Lymph % (Auto) [place] % (Auto) Lymph # [place] # Baso # Seg Neutrophils % Seg Neuts % (Manual) Lymphocytes % (Manual) Monocytes % (Manual) Eosinophils % (Manual) Basophils % (Manual) Nucleated RBC % Seg Neutrophils # Seg Neutrophils # Man Lymphocytes # (Manual) Monocytes # (Manual) Eosinophils # (Manual) Basophils # (Manual) PT INR Fibrinogen dRVVT Confirm Interp Factor V Activity POC ABG pH POC ABG pCO2 POC ABG pO2 ABG pO2 ABG HCO3 ABG Base Excess ABG Hemoglobin Oxyhemoglobin Sodium Potassium Chloride Carbon Dioxide 20 L BUN 116 H Creatinine 3.0 H Glucose 172 H POC Glucose 140 H 183 H Lactic Acid Calcium Phosphorus Magnesium Direct Bilirubin AST ALT Alkaline Phosphatase Lactate Dehydrogenase Troponin T C-Reactive Protein Total Protein 6.2 L Albumin 2.9 L Prealbumin Triglycerides Cholesterol LDL Cholesterol Direct HDL Cholesterol Urine pH Urine WBC (Auto) Urine Creatinine Urine Total Protein Fluid Total Protein Vancomycin Trough Rheumatoid Factor Complement C4 Miscellaneous Test Crossmatch 09/13/16 09/14/16 09/14/16 23:23 04:06 04:07 WBC 29.4 H RBC Hgb 8.9 L Hct 27.3 L MCV 75 L MCH 24 L MCHC RDW 19.1 H Plt Count Lymph % (Auto) [place] % (Auto) Lymph # [place] # Baso # Seg Neutrophils % Seg Neuts % (Manual) 84.0 H Lymphocytes % (Manual) 6.0 L Monocytes % (Manual) 9.0 H Eosinophils % (Manual) Basophils % (Manual) Nucleated RBC % Seg Neutrophils # Seg Neutrophils # Man 24.7 H Lymphocytes # (Manual) Monocytes # (Manual) 2.6 H Eosinophils # (Manual) Basophils # (Manual) PT INR Fibrinogen dRVVT Confirm Interp Factor V Activity POC ABG pH 7.342 L POC ABG pCO2 POC ABG pO2 116 H ABG pO2 ABG HCO3 ABG Base Excess ABG Hemoglobin Oxyhemoglobin Sodium Potassium Chloride Carbon Dioxide BUN Creatinine Glucose POC Glucose 154 H Lactic Acid Calcium Phosphorus Magnesium Direct Bilirubin AST ALT Alkaline Phosphatase Lactate Dehydrogenase Troponin T C-Reactive Protein Total Protein Albumin Prealbumin Triglycerides Cholesterol LDL Cholesterol Direct HDL Cholesterol Urine pH Urine WBC (Auto) Urine Creatinine Urine Total Protein Fluid Total Protein Vancomycin Trough Rheumatoid Factor Complement C4 Miscellaneous Test Crossmatch 09/14/16 09/14/16 09/14/16 04:07 05:29 12:19 WBC RBC Hgb Hct MCV MCH MCHC RDW Plt Count Lymph % (Auto) [place] % (Auto) Lymph # [place] # Baso # Seg Neutrophils % Seg Neuts % (Manual) Lymphocytes % (Manual) Monocytes % (Manual) Eosinophils % (Manual) Basophils % (Manual) Nucleated RBC % Seg Neutrophils # Seg Neutrophils # Man Lymphocytes # (Manual) Monocytes # (Manual) Eosinophils # (Manual) Basophils # (Manual) PT INR Fibrinogen dRVVT Confirm Interp Factor V Activity POC ABG pH POC ABG pCO2 POC ABG pO2 ABG pO2 ABG HCO3 ABG Base Excess ABG Hemoglobin Oxyhemoglobin Sodium 136 L Potassium Chloride Carbon Dioxide 18 L BUN 121 H Creatinine 2.8 H Glucose 214 H POC Glucose 239 H 181 H Lactic Acid Calcium Phosphorus Magnesium Direct Bilirubin AST ALT Alkaline Phosphatase Lactate Dehydrogenase Troponin T C-Reactive Protein Total Protein Albumin Prealbumin Triglycerides Cholesterol LDL Cholesterol Direct HDL Cholesterol Urine pH Urine WBC (Auto) Urine Creatinine Urine Total Protein Fluid Total Protein Vancomycin Trough Rheumatoid Factor Complement C4 Miscellaneous Test Crossmatch 09/14/16 09/14/16 09/15/16 18:12 23:37 05:00 WBC 26.1 H RBC 3.05 L Hgb 7.2 L Hct 22.9 L MCV 75 L MCH 24 L MCHC RDW 19.0 H Plt Count Lymph % (Auto) [place] % (Auto) Lymph # [place] # Baso # Seg Neutrophils % Seg Neuts % (Manual) Lymphocytes % (Manual) Monocytes % (Manual) Eosinophils % (Manual) Basophils % (Manual) Nucleated RBC % Seg Neutrophils # Seg Neutrophils # Man Lymphocytes # (Manual) Monocytes # (Manual) Eosinophils # (Manual) Basophils # (Manual) PT INR Fibrinogen dRVVT Confirm Interp Factor V Activity POC ABG pH POC ABG pCO2 POC ABG pO2 ABG pO2 ABG HCO3 ABG Base Excess ABG Hemoglobin Oxyhemoglobin Sodium Potassium Chloride Carbon Dioxide BUN Creatinine Glucose POC Glucose 266 H 154 H Lactic Acid Calcium Phosphorus Magnesium Direct Bilirubin AST ALT Alkaline Phosphatase Lactate Dehydrogenase Troponin T C-Reactive Protein Total Protein Albumin Prealbumin Triglycerides Cholesterol LDL Cholesterol Direct HDL Cholesterol Urine pH Urine WBC (Auto) Urine Creatinine Urine Total Protein Fluid Total Protein Vancomycin Trough Rheumatoid Factor Complement C4 Miscellaneous Test Crossmatch 09/15/16 09/15/16 09/15/16 05:00 05:17 12:45 WBC RBC Hgb Hct MCV MCH MCHC RDW Plt Count Lymph % (Auto) [place] % (Auto) Lymph # [place] # Baso # Seg Neutrophils % Seg Neuts % (Manual) Lymphocytes % (Manual) Monocytes % (Manual) Eosinophils % (Manual) Basophils % (Manual) Nucleated RBC % Seg Neutrophils # Seg Neutrophils # Man Lymphocytes # (Manual) Monocytes # (Manual) Eosinophils # (Manual) Basophils # (Manual) PT INR Fibrinogen dRVVT Confirm Interp Factor V Activity POC ABG pH POC ABG pCO2 POC ABG pO2 ABG pO2 ABG HCO3 ABG Base Excess ABG Hemoglobin Oxyhemoglobin Sodium Potassium 5.2 H Chloride Carbon Dioxide 18 L BUN 139 H Creatinine 3.7 H Glucose 227 H POC Glucose 226 H 244 H Lactic Acid Calcium 8.3 L Phosphorus Magnesium Direct Bilirubin AST ALT Alkaline Phosphatase Lactate Dehydrogenase Troponin T C-Reactive Protein Total Protein Albumin Prealbumin Triglycerides Cholesterol LDL Cholesterol Direct HDL Cholesterol Urine pH Urine WBC (Auto) Urine Creatinine Urine Total Protein Fluid Total Protein Vancomycin Trough Rheumatoid Factor Complement C4 Miscellaneous Test Crossmatch 09/15/16 09/15/16 09/15/16 14:32 17:33 23:35 WBC RBC Hgb Hct MCV MCH MCHC RDW Plt Count Lymph % (Auto) [place] % (Auto) Lymph # [place] # Baso # Seg Neutrophils % Seg Neuts % (Manual) Lymphocytes % (Manual) Monocytes % (Manual) Eosinophils % (Manual) Basophils % (Manual) Nucleated RBC % Seg Neutrophils # Seg Neutrophils # Man Lymphocytes # (Manual) Monocytes # (Manual) Eosinophils # (Manual) Basophils # (Manual) PT INR Fibrinogen dRVVT Confirm Interp Factor V Activity POC ABG pH POC ABG pCO2 27.7 L POC ABG pO2 120 H ABG pO2 ABG HCO3 ABG Base Excess ABG Hemoglobin Oxyhemoglobin Sodium Potassium Chloride Carbon Dioxide BUN Creatinine Glucose POC Glucose 232 H 167 H Lactic Acid Calcium Phosphorus Magnesium Direct Bilirubin AST ALT Alkaline Phosphatase Lactate Dehydrogenase Troponin T C-Reactive Protein Total Protein Albumin Prealbumin Triglycerides Cholesterol LDL Cholesterol Direct HDL Cholesterol Urine pH Urine WBC (Auto) Urine Creatinine Urine Total Protein Fluid Total Protein Vancomycin Trough Rheumatoid Factor Complement C4 Miscellaneous Test Crossmatch 09/16/16 09/16/16 09/16/16 03:58 10:27 10:27 WBC 19.0 H RBC 2.77 L Hgb 6.5 L Hct 20.9 L MCV 76 L MCH 23 L MCHC RDW 19.3 H Plt Count Lymph % (Auto) 11.0 L [place] % (Auto) Lymph # [place] # 1.1 H Baso # Seg Neutrophils % 82.5 H Seg Neuts % (Manual) Lymphocytes % (Manual) Monocytes % (Manual) Eosinophils % (Manual) Basophils % (Manual) Nucleated RBC % Seg Neutrophils # 15.7 H Seg Neutrophils # Man Lymphocytes # (Manual) Monocytes # (Manual) Eosinophils # (Manual) Basophils # (Manual) PT INR Fibrinogen dRVVT Confirm Interp Factor V Activity POC ABG pH POC ABG pCO2 POC ABG pO2 ABG pO2 ABG HCO3 ABG Base Excess ABG Hemoglobin Oxyhemoglobin Sodium Potassium Chloride 109.3 H Carbon Dioxide 18 L BUN 139 H Creatinine 4.1 H Glucose 144 H POC Glucose 146 H Lactic Acid Calcium 8.1 L Phosphorus Magnesium Direct Bilirubin AST ALT Alkaline Phosphatase Lactate Dehydrogenase Troponin T C-Reactive Protein Total Protein Albumin Prealbumin Triglycerides Cholesterol LDL Cholesterol Direct HDL Cholesterol Urine pH Urine WBC (Auto) Urine Creatinine Urine Total Protein Fluid Total Protein Vancomycin Trough Rheumatoid Factor Complement C4 Miscellaneous Test Crossmatch 09/16/16 09/16/16 09/16/16 12:04 12:10 13:55 WBC RBC Hgb Hct MCV MCH MCHC RDW Plt Count Lymph % (Auto) [place] % (Auto) Lymph # [place] # Baso # Seg Neutrophils % Seg Neuts % (Manual) Lymphocytes % (Manual) Monocytes % (Manual) Eosinophils % (Manual) Basophils % (Manual) Nucleated RBC % Seg Neutrophils # Seg Neutrophils # Man Lymphocytes # (Manual) Monocytes # (Manual) Eosinophils # (Manual) Basophils # (Manual) PT INR Fibrinogen dRVVT Confirm Interp Factor V Activity POC ABG pH POC ABG pCO2 32.9 L POC ABG pO2 ABG pO2 ABG HCO3 ABG Base Excess ABG Hemoglobin Oxyhemoglobin Sodium Potassium Chloride Carbon Dioxide BUN Creatinine Glucose POC Glucose 185 H Lactic Acid Calcium Phosphorus Magnesium Direct Bilirubin AST ALT Alkaline Phosphatase Lactate Dehydrogenase Troponin T C-Reactive Protein Total Protein Albumin Prealbumin Triglycerides Cholesterol LDL Cholesterol Direct HDL Cholesterol Urine pH Urine WBC (Auto) Urine Creatinine Urine Total Protein Fluid Total Protein Vancomycin Trough Rheumatoid Factor Complement C4 Miscellaneous Test Crossmatch See Detail 09/16/16 09/16/16 09/16/16 17:55 19:19 23:48 WBC RBC Hgb Hct MCV MCH MCHC RDW Plt Count Lymph % (Auto) [place] % (Auto) Lymph # [place] # Baso # Seg Neutrophils % Seg Neuts % (Manual) Lymphocytes % (Manual) Monocytes % (Manual) Eosinophils % (Manual) Basophils % (Manual) Nucleated RBC % Seg Neutrophils # Seg Neutrophils # Man Lymphocytes # (Manual) Monocytes # (Manual) Eosinophils # (Manual) Basophils # (Manual) PT INR Fibrinogen dRVVT Confirm Interp Factor V Activity POC ABG pH POC ABG pCO2 POC ABG pO2 ABG pO2 ABG HCO3 ABG Base Excess ABG Hemoglobin Oxyhemoglobin Sodium Potassium Chloride Carbon Dioxide BUN Creatinine Glucose POC Glucose 222 H 107 H Lactic Acid Calcium Phosphorus Magnesium Direct Bilirubin AST ALT Alkaline Phosphatase Lactate Dehydrogenase Troponin T C-Reactive Protein Total Protein Albumin Prealbumin Triglycerides Cholesterol LDL Cholesterol Direct HDL Cholesterol Urine pH Urine WBC (Auto) Urine Creatinine 47.4 H Urine Total Protein 16 H Fluid Total Protein Vancomycin Trough Rheumatoid Factor Complement C4 Miscellaneous Test Crossmatch 09/17/16 09/17/16 09/17/16 03:45 03:45 04:55 WBC 19.6 H RBC 3.41 L Hgb 8.5 L Hct 26.7 L MCV 78 L MCH 25 L MCHC RDW 19.9 H Plt Count Lymph % (Auto) 9.3 L [place] % (Auto) Lymph # [place] # 1.2 H Baso # Seg Neutrophils % 83.9 H Seg Neuts % (Manual) Lymphocytes % (Manual) Monocytes % (Manual) Eosinophils % (Manual) Basophils % (Manual) Nucleated RBC % Seg Neutrophils # 16.4 H Seg Neutrophils # Man Lymphocytes # (Manual) Monocytes # (Manual) Eosinophils # (Manual) Basophils # (Manual) PT INR Fibrinogen dRVVT Confirm Interp Factor V Activity POC ABG pH POC ABG pCO2 POC ABG pO2 ABG pO2 ABG HCO3 ABG Base Excess ABG Hemoglobin Oxyhemoglobin Sodium 146 H Potassium 5.1 H Chloride 110.9 H Carbon Dioxide 16 L BUN 146 H Creatinine 4.0 H Glucose 108 H POC Glucose 133 H Lactic Acid Calcium Phosphorus Magnesium 3.00 H Direct Bilirubin AST ALT Alkaline Phosphatase Lactate Dehydrogenase Troponin T C-Reactive Protein Total Protein Albumin Prealbumin Triglycerides Cholesterol LDL Cholesterol Direct HDL Cholesterol Urine pH Urine WBC (Auto) Urine Creatinine Urine Total Protein Fluid Total Protein Vancomycin Trough Rheumatoid Factor Complement C4 Miscellaneous Test Crossmatch 09/17/16 09/17/16 09/17/16 11:15 17:33 23:47 WBC RBC Hgb Hct MCV MCH MCHC RDW Plt Count Lymph % (Auto) [place] % (Auto) Lymph # [place] # Baso # Seg Neutrophils % Seg Neuts % (Manual) Lymphocytes % (Manual) Monocytes % (Manual) Eosinophils % (Manual) Basophils % (Manual) Nucleated RBC % Seg Neutrophils # Seg Neutrophils # Man Lymphocytes # (Manual) Monocytes # (Manual) Eosinophils # (Manual) Basophils # (Manual) PT INR Fibrinogen dRVVT Confirm Interp Factor V Activity POC ABG pH POC ABG pCO2 POC ABG pO2 ABG pO2 ABG HCO3 ABG Base Excess ABG Hemoglobin Oxyhemoglobin Sodium Potassium Chloride Carbon Dioxide BUN Creatinine Glucose POC Glucose 176 H 246 H 148 H Lactic Acid Calcium Phosphorus Magnesium Direct Bilirubin AST ALT Alkaline Phosphatase Lactate Dehydrogenase Troponin T C-Reactive Protein Total Protein Albumin Prealbumin Triglycerides Cholesterol LDL Cholesterol Direct HDL Cholesterol Urine pH Urine WBC (Auto) Urine Creatinine Urine Total Protein Fluid Total Protein Vancomycin Trough Rheumatoid Factor Complement C4 Miscellaneous Test Crossmatch 09/18/16 09/18/16 09/18/16 05:33 08:31 08:31 WBC 18.0 H RBC 3.17 L Hgb 9.0 L Hct 25.7 L MCV MCH MCHC 35 H RDW 20.4 H Plt Count Lymph % (Auto) [place] % (Auto) Lymph # [place] # Baso # Seg Neutrophils % Seg Neuts % (Manual) Lymphocytes % (Manual) Monocytes % (Manual) Eosinophils % (Manual) Basophils % (Manual) Nucleated RBC % Seg Neutrophils # Seg Neutrophils # Man Lymphocytes # (Manual) Monocytes # (Manual) Eosinophils # (Manual) Basophils # (Manual) PT INR Fibrinogen dRVVT Confirm Interp Factor V Activity POC ABG pH POC ABG pCO2 POC ABG pO2 ABG pO2 ABG HCO3 ABG Base Excess ABG Hemoglobin Oxyhemoglobin Sodium Potassium Chloride Carbon Dioxide 15 L BUN 124 H Creatinine 3.8 H Glucose POC Glucose 120 H Lactic Acid Calcium 8.1 L Phosphorus Magnesium Direct Bilirubin AST ALT Alkaline Phosphatase Lactate Dehydrogenase Troponin T C-Reactive Protein Total Protein Albumin Prealbumin Triglycerides Cholesterol LDL Cholesterol Direct HDL Cholesterol Urine pH Urine WBC (Auto) Urine Creatinine Urine Total Protein Fluid Total Protein Vancomycin Trough Rheumatoid Factor Complement C4 Miscellaneous Test Crossmatch 09/18/16 09/18/16 09/18/16 12:03 15:34 17:50 WBC RBC Hgb Hct MCV MCH MCHC RDW Plt Count Lymph % (Auto) [place] % (Auto) Lymph # [place] # Baso # Seg Neutrophils % Seg Neuts % (Manual) Lymphocytes % (Manual) Monocytes % (Manual) Eosinophils % (Manual) Basophils % (Manual) Nucleated RBC % Seg Neutrophils # Seg Neutrophils # Man Lymphocytes # (Manual) Monocytes # (Manual) Eosinophils # (Manual) Basophils # (Manual) PT INR Fibrinogen dRVVT Confirm Interp Factor V Activity POC ABG pH POC ABG pCO2 25.7 L POC ABG pO2 66 L ABG pO2 ABG HCO3 ABG Base Excess ABG Hemoglobin Oxyhemoglobin Sodium Potassium Chloride Carbon Dioxide BUN Creatinine Glucose POC Glucose 156 H 220 H Lactic Acid Calcium Phosphorus Magnesium Direct Bilirubin AST ALT Alkaline Phosphatase Lactate Dehydrogenase Troponin T C-Reactive Protein Total Protein Albumin Prealbumin Triglycerides Cholesterol LDL Cholesterol Direct HDL Cholesterol Urine pH Urine WBC (Auto) Urine Creatinine Urine Total Protein Fluid Total Protein Vancomycin Trough Rheumatoid Factor Complement C4 Miscellaneous Test Crossmatch 09/19/16 09/19/16 09/19/16 06:21 09:50 09:50 WBC 17.1 H RBC 3.49 L Hgb 9.0 L Hct 28.1 L MCV MCH 26 L MCHC RDW 20.8 H Plt Count Lymph % (Auto) 11.5 L [place] % (Auto) 7.5 H Lymph # [place] # 1.3 H Baso # Seg Neutrophils % 79.8 H Seg Neuts % (Manual) Lymphocytes % (Manual) Monocytes % (Manual) Eosinophils % (Manual) Basophils % (Manual) Nucleated RBC % Seg Neutrophils # 13.7 H Seg Neutrophils # Man Lymphocytes # (Manual) Monocytes # (Manual) Eosinophils # (Manual) Basophils # (Manual) PT INR Fibrinogen dRVVT Confirm Interp Factor V Activity POC ABG pH POC ABG pCO2 POC ABG pO2 ABG pO2 ABG HCO3 ABG Base Excess ABG Hemoglobin Oxyhemoglobin Sodium Potassium Chloride 108.6 H Carbon Dioxide 15 L BUN 125 H Creatinine 4.1 H Glucose 124 H POC Glucose 119 H Lactic Acid Calcium Phosphorus Magnesium Direct Bilirubin AST ALT Alkaline Phosphatase Lactate Dehydrogenase Troponin T C-Reactive Protein Total Protein Albumin Prealbumin Triglycerides Cholesterol LDL Cholesterol Direct HDL Cholesterol Urine pH Urine WBC (Auto) Urine Creatinine Urine Total Protein Fluid Total Protein Vancomycin Trough Rheumatoid Factor Complement C4 Miscellaneous Test Crossmatch 09/19/16 09/19/16 09/19/16 11:25 17:53 23:36 WBC RBC Hgb Hct MCV MCH MCHC RDW Plt Count Lymph % (Auto) [place] % (Auto) Lymph # [place] # Baso # Seg Neutrophils % Seg Neuts % (Manual) Lymphocytes % (Manual) Monocytes % (Manual) Eosinophils % (Manual) Basophils % (Manual) Nucleated RBC % Seg Neutrophils # Seg Neutrophils # Man Lymphocytes # (Manual) Monocytes # (Manual) Eosinophils # (Manual) Basophils # (Manual) PT INR Fibrinogen dRVVT Confirm Interp Factor V Activity POC ABG pH POC ABG pCO2 POC ABG pO2 ABG pO2 ABG HCO3 ABG Base Excess ABG Hemoglobin Oxyhemoglobin Sodium Potassium Chloride Carbon Dioxide BUN Creatinine Glucose POC Glucose 160 H 245 H 121 H Lactic Acid Calcium Phosphorus Magnesium Direct Bilirubin AST ALT Alkaline Phosphatase Lactate Dehydrogenase Troponin T C-Reactive Protein Total Protein Albumin Prealbumin Triglycerides Cholesterol LDL Cholesterol Direct HDL Cholesterol Urine pH Urine WBC (Auto) Urine Creatinine Urine Total Protein Fluid Total Protein Vancomycin Trough Rheumatoid Factor Complement C4 Miscellaneous Test Crossmatch 09/20/16 09/20/16 09/20/16 04:10 04:10 04:10 WBC 17.0 H RBC 3.21 L Hgb 8.2 L Hct 25.5 L MCV MCH 26 L MCHC RDW 20.9 H Plt Count Lymph % (Auto) [place] % (Auto) Lymph # [place] # Baso # Seg Neutrophils % Seg Neuts % (Manual) Lymphocytes % (Manual) Monocytes % (Manual) Eosinophils % (Manual) Basophils % (Manual) Nucleated RBC % Seg Neutrophils # Seg Neutrophils # Man Lymphocytes # (Manual) Monocytes # (Manual) Eosinophils # (Manual) Basophils # (Manual) PT INR Fibrinogen dRVVT Confirm Interp Factor V Activity POC ABG pH POC ABG pCO2 POC ABG pO2 ABG pO2 ABG HCO3 ABG Base Excess ABG Hemoglobin Oxyhemoglobin Sodium Potassium Chloride 111.0 H Carbon Dioxide 16 L BUN 129 H Creatinine 3.7 H Glucose 115 H POC Glucose Lactic Acid Calcium 8.2 L Phosphorus Magnesium Direct Bilirubin AST ALT Alkaline Phosphatase Lactate Dehydrogenase Troponin T C-Reactive Protein Total Protein Albumin Prealbumin Triglycerides 243 H Cholesterol LDL Cholesterol Direct HDL Cholesterol Urine pH Urine WBC (Auto) Urine Creatinine Urine Total Protein Fluid Total Protein Vancomycin Trough Rheumatoid Factor Complement C4 Miscellaneous Test Crossmatch 09/20/16 09/20/16 09/20/16 05:40 11:52 16:50 WBC RBC Hgb Hct MCV MCH MCHC RDW Plt Count Lymph % (Auto) [place] % (Auto) Lymph # [place] # Baso # Seg Neutrophils % Seg Neuts % (Manual) Lymphocytes % (Manual) Monocytes % (Manual) Eosinophils % (Manual) Basophils % (Manual) Nucleated RBC % Seg Neutrophils # Seg Neutrophils # Man Lymphocytes # (Manual) Monocytes # (Manual) Eosinophils # (Manual) Basophils # (Manual) PT INR Fibrinogen dRVVT Confirm Interp Factor V Activity POC ABG pH POC ABG pCO2 POC ABG pO2 ABG pO2 ABG HCO3 ABG Base Excess ABG Hemoglobin Oxyhemoglobin Sodium Potassium Chloride Carbon Dioxide BUN Creatinine Glucose POC Glucose 131 H 183 H 236 H Lactic Acid Calcium Phosphorus Magnesium Direct Bilirubin AST ALT Alkaline Phosphatase Lactate Dehydrogenase Troponin T C-Reactive Protein Total Protein Albumin Prealbumin Triglycerides Cholesterol LDL Cholesterol Direct HDL Cholesterol Urine pH Urine WBC (Auto) Urine Creatinine Urine Total Protein Fluid Total Protein Vancomycin Trough Rheumatoid Factor Complement C4 Miscellaneous Test Crossmatch 09/20/16 09/21/16 09/21/16 23:51 03:30 04:44 WBC RBC Hgb Hct MCV MCH MCHC RDW Plt Count Lymph % (Auto) [place] % (Auto) Lymph # [place] # Baso # Seg Neutrophils % Seg Neuts % (Manual) Lymphocytes % (Manual) Monocytes % (Manual) Eosinophils % (Manual) Basophils % (Manual) Nucleated RBC % Seg Neutrophils # Seg Neutrophils # Man Lymphocytes # (Manual) Monocytes # (Manual) Eosinophils # (Manual) Basophils # (Manual) PT INR Fibrinogen dRVVT Confirm Interp Factor V Activity POC ABG pH POC ABG pCO2 POC ABG pO2 ABG pO2 ABG HCO3 ABG Base Excess ABG Hemoglobin Oxyhemoglobin Sodium Potassium Chloride Carbon Dioxide BUN Creatinine Glucose POC Glucose 114 H 141 H Lactic Acid Calcium Phosphorus Magnesium 2.70 H Direct Bilirubin AST ALT Alkaline Phosphatase Lactate Dehydrogenase Troponin T C-Reactive Protein Total Protein Albumin Prealbumin Triglycerides Cholesterol LDL Cholesterol Direct HDL Cholesterol Urine pH Urine WBC (Auto) Urine Creatinine Urine Total Protein Fluid Total Protein Vancomycin Trough Rheumatoid Factor Complement C4 Miscellaneous Test Crossmatch 09/21/16 09/21/16 09/21/16 07:45 07:45 10:01 WBC 13.8 H RBC 2.94 L Hgb 7.5 L Hct 23.5 L MCV MCH 26 L MCHC RDW 21.2 H Plt Count Lymph % (Auto) 6.9 L [place] % (Auto) 9.4 H Lymph # 0.9 L [place] # 1.3 H Baso # Seg Neutrophils % 83.2 H Seg Neuts % (Manual) Lymphocytes % (Manual) Monocytes % (Manual) Eosinophils % (Manual) Basophils % (Manual) Nucleated RBC % Seg Neutrophils # 11.5 H Seg Neutrophils # Man Lymphocytes # (Manual) Monocytes # (Manual) Eosinophils # (Manual) Basophils # (Manual) PT INR Fibrinogen dRVVT Confirm Interp Factor V Activity POC ABG pH 7.308 L POC ABG pCO2 31.9 L POC ABG pO2 148 H ABG pO2 ABG HCO3 ABG Base Excess ABG Hemoglobin Oxyhemoglobin Sodium 147 H Potassium Chloride 114.2 H Carbon Dioxide 15 L BUN 120 H Creatinine 3.9 H Glucose 156 H POC Glucose Lactic Acid Calcium 8.2 L Phosphorus Magnesium Direct Bilirubin AST ALT Alkaline Phosphatase Lactate Dehydrogenase Troponin T C-Reactive Protein Total Protein Albumin Prealbumin Triglycerides Cholesterol LDL Cholesterol Direct HDL Cholesterol Urine pH Urine WBC (Auto) Urine Creatinine Urine Total Protein Fluid Total Protein Vancomycin Trough Rheumatoid Factor Complement C4 Miscellaneous Test Crossmatch 09/21/16 09/21/16 09/21/16 12:00 12:03 13:00 WBC RBC Hgb Hct MCV MCH MCHC RDW Plt Count Lymph % (Auto) [place] % (Auto) Lymph # [place] # Baso # Seg Neutrophils % Seg Neuts % (Manual) Lymphocytes % (Manual) Monocytes % (Manual) Eosinophils % (Manual) Basophils % (Manual) Nucleated RBC % Seg Neutrophils # Seg Neutrophils # Man Lymphocytes # (Manual) Monocytes # (Manual) Eosinophils # (Manual) Basophils # (Manual) PT INR Fibrinogen dRVVT Confirm Interp Factor V Activity POC ABG pH POC ABG pCO2 POC ABG pO2 ABG pO2 ABG HCO3 ABG Base Excess ABG Hemoglobin Oxyhemoglobin Sodium Potassium Chloride Carbon Dioxide BUN Creatinine Glucose POC Glucose 163 H Lactic Acid Calcium Phosphorus Magnesium Direct Bilirubin AST ALT Alkaline Phosphatase Lactate Dehydrogenase Troponin T C-Reactive Protein Total Protein Albumin Prealbumin Triglycerides Cholesterol LDL Cholesterol Direct HDL Cholesterol Urine pH Urine WBC (Auto) Urine Creatinine 54.8 H Urine Total Protein Fluid Total Protein Vancomycin Trough 2.3 L Rheumatoid Factor Complement C4 Miscellaneous Test Crossmatch 09/21/16 09/21/16 09/22/16 16:51 23:17 06:27 WBC RBC Hgb Hct MCV MCH MCHC RDW Plt Count Lymph % (Auto) [place] % (Auto) Lymph # [place] # Baso # Seg Neutrophils % Seg Neuts % (Manual) Lymphocytes % (Manual) Monocytes % (Manual) Eosinophils % (Manual) Basophils % (Manual) Nucleated RBC % Seg Neutrophils # Seg Neutrophils # Man Lymphocytes # (Manual) Monocytes # (Manual) Eosinophils # (Manual) Basophils # (Manual) PT INR Fibrinogen dRVVT Confirm Interp Factor V Activity POC ABG pH POC ABG pCO2 POC ABG pO2 ABG pO2 ABG HCO3 ABG Base Excess ABG Hemoglobin Oxyhemoglobin Sodium Potassium Chloride Carbon Dioxide BUN Creatinine Glucose POC Glucose 206 H 114 H 115 H Lactic Acid Calcium Phosphorus Magnesium Direct Bilirubin AST ALT Alkaline Phosphatase Lactate Dehydrogenase Troponin T C-Reactive Protein Total Protein Albumin Prealbumin Triglycerides Cholesterol LDL Cholesterol Direct HDL Cholesterol Urine pH Urine WBC (Auto) Urine Creatinine Urine Total Protein Fluid Total Protein Vancomycin Trough Rheumatoid Factor Complement C4 Miscellaneous Test Crossmatch 09/22/16 09/22/16 09/22/16 07:50 07:50 12:00 WBC 17.8 H RBC 3.04 L Hgb 8.0 L Hct 24.7 L MCV MCH 26 L MCHC RDW 21.6 H Plt Count Lymph % (Auto) [place] % (Auto) Lymph # [place] # Baso # Seg Neutrophils % Seg Neuts % (Manual) Lymphocytes % (Manual) Monocytes % (Manual) Eosinophils % (Manual) Basophils % (Manual) Nucleated RBC % Seg Neutrophils # Seg Neutrophils # Man Lymphocytes # (Manual) Monocytes # (Manual) Eosinophils # (Manual) Basophils # (Manual) PT INR Fibrinogen dRVVT Confirm Interp Factor V Activity POC ABG pH POC ABG pCO2 POC ABG pO2 ABG pO2 ABG HCO3 ABG Base Excess ABG Hemoglobin Oxyhemoglobin Sodium 150 H Potassium Chloride 118.2 H Carbon Dioxide 14 L BUN 111 H Creatinine 3.7 H Glucose 157 H POC Glucose 183 H Lactic Acid Calcium Phosphorus Magnesium Direct Bilirubin AST ALT Alkaline Phosphatase Lactate Dehydrogenase Troponin T C-Reactive Protein Total Protein Albumin Prealbumin Triglycerides Cholesterol LDL Cholesterol Direct HDL Cholesterol Urine pH Urine WBC (Auto) Urine Creatinine Urine Total Protein Fluid Total Protein Vancomycin Trough Rheumatoid Factor Complement C4 Miscellaneous Test Crossmatch 09/22/16 09/22/16 09/23/16 17:29 23:10 05:00 WBC 19.2 H RBC 3.13 L Hgb 8.0 L Hct 25.2 L MCV MCH 26 L MCHC RDW 22.1 H Plt Count Lymph % (Auto) [place] % (Auto) Lymph # [place] # Baso # Seg Neutrophils % Seg Neuts % (Manual) 92.0 H Lymphocytes % (Manual) 3.0 L Monocytes % (Manual) Eosinophils % (Manual) Basophils % (Manual) Nucleated RBC % Seg Neutrophils # Seg Neutrophils # Man 17.7 H Lymphocytes # (Manual) 0.6 L Monocytes # (Manual) Eosinophils # (Manual) Basophils # (Manual) PT INR Fibrinogen dRVVT Confirm Interp Factor V Activity POC ABG pH POC ABG pCO2 POC ABG pO2 ABG pO2 ABG HCO3 ABG Base Excess ABG Hemoglobin Oxyhemoglobin Sodium Potassium Chloride Carbon Dioxide BUN Creatinine Glucose POC Glucose 197 H 169 H Lactic Acid Calcium Phosphorus Magnesium Direct Bilirubin AST ALT Alkaline Phosphatase Lactate Dehydrogenase Troponin T C-Reactive Protein Total Protein Albumin Prealbumin Triglycerides Cholesterol LDL Cholesterol Direct HDL Cholesterol Urine pH Urine WBC (Auto) Urine Creatinine Urine Total Protein Fluid Total Protein Vancomycin Trough Rheumatoid Factor Complement C4 Miscellaneous Test Crossmatch 09/23/16 09/23/16 09/23/16 05:00 05:00 05:10 WBC RBC Hgb Hct MCV MCH MCHC RDW Plt Count Lymph % (Auto) [place] % (Auto) Lymph # [place] # Baso # Seg Neutrophils % Seg Neuts % (Manual) Lymphocytes % (Manual) Monocytes % (Manual) Eosinophils % (Manual) Basophils % (Manual) Nucleated RBC % Seg Neutrophils # Seg Neutrophils # Man Lymphocytes # (Manual) Monocytes # (Manual) Eosinophils # (Manual) Basophils # (Manual) PT INR Fibrinogen dRVVT Confirm Interp Factor V Activity POC ABG pH POC ABG pCO2 POC ABG pO2 ABG pO2 ABG HCO3 ABG Base Excess ABG Hemoglobin Oxyhemoglobin Sodium 147 H Potassium 3.2 L Chloride 115.7 H Carbon Dioxide 13 L BUN 111 H Creatinine 3.8 H Glucose 194 H POC Glucose 188 H Lactic Acid Calcium 7.3 L D Phosphorus Magnesium Direct Bilirubin AST ALT Alkaline Phosphatase Lactate Dehydrogenase Troponin T C-Reactive Protein 3.20 H Total Protein Albumin Prealbumin Triglycerides Cholesterol LDL Cholesterol Direct HDL Cholesterol Urine pH Urine WBC (Auto) Urine Creatinine Urine Total Protein Fluid Total Protein Vancomycin Trough Rheumatoid Factor Complement C4 Miscellaneous Test Crossmatch 09/23/16 09/23/16 09/23/16 11:37 12:29 18:01 WBC RBC Hgb Hct MCV MCH MCHC RDW Plt Count Lymph % (Auto) [place] % (Auto) Lymph # [place] # Baso # Seg Neutrophils % Seg Neuts % (Manual) Lymphocytes % (Manual) Monocytes % (Manual) Eosinophils % (Manual) Basophils % (Manual) Nucleated RBC % Seg Neutrophils # Seg Neutrophils # Man Lymphocytes # (Manual) Monocytes # (Manual) Eosinophils # (Manual) Basophils # (Manual) PT INR Fibrinogen dRVVT Confirm Interp Factor V Activity POC ABG pH POC ABG pCO2 18.9 L POC ABG pO2 143 H ABG pO2 ABG HCO3 ABG Base Excess ABG Hemoglobin Oxyhemoglobin Sodium Potassium Chloride Carbon Dioxide BUN Creatinine Glucose POC Glucose 153 H 108 H Lactic Acid Calcium Phosphorus Magnesium Direct Bilirubin AST ALT Alkaline Phosphatase Lactate Dehydrogenase Troponin T C-Reactive Protein Total Protein Albumin Prealbumin Triglycerides Cholesterol LDL Cholesterol Direct HDL Cholesterol Urine pH Urine WBC (Auto) Urine Creatinine Urine Total Protein Fluid Total Protein Vancomycin Trough Rheumatoid Factor Complement C4 Miscellaneous Test Crossmatch 09/23/16 09/23/16 09/24/16 21:19 23:43 05:16 WBC RBC Hgb Hct MCV MCH MCHC RDW Plt Count Lymph % (Auto) [place] % (Auto) Lymph # [place] # Baso # Seg Neutrophils % Seg Neuts % (Manual) Lymphocytes % (Manual) Monocytes % (Manual) Eosinophils % (Manual) Basophils % (Manual) Nucleated RBC % Seg Neutrophils # Seg Neutrophils # Man Lymphocytes # (Manual) Monocytes # (Manual) Eosinophils # (Manual) Basophils # (Manual) PT INR Fibrinogen dRVVT Confirm Interp Factor V Activity POC ABG pH POC ABG pCO2 17.3 L POC ABG pO2 112 H ABG pO2 ABG HCO3 ABG Base Excess ABG Hemoglobin Oxyhemoglobin Sodium Potassium Chloride Carbon Dioxide BUN Creatinine Glucose POC Glucose 143 H 164 H Lactic Acid Calcium Phosphorus Magnesium Direct Bilirubin AST ALT Alkaline Phosphatase Lactate Dehydrogenase Troponin T C-Reactive Protein Total Protein Albumin Prealbumin Triglycerides Cholesterol LDL Cholesterol Direct HDL Cholesterol Urine pH Urine WBC (Auto) Urine Creatinine Urine Total Protein Fluid Total Protein Vancomycin Trough Rheumatoid Factor Complement C4 Miscellaneous Test Crossmatch 09/24/16 09/24/16 09/24/16 05:21 11:58 17:06 WBC RBC Hgb Hct MCV MCH MCHC RDW Plt Count Lymph % (Auto) [place] % (Auto) Lymph # [place] # Baso # Seg Neutrophils % Seg Neuts % (Manual) Lymphocytes % (Manual) Monocytes % (Manual) Eosinophils % (Manual) Basophils % (Manual) Nucleated RBC % Seg Neutrophils # Seg Neutrophils # Man Lymphocytes # (Manual) Monocytes # (Manual) Eosinophils # (Manual) Basophils # (Manual) PT INR Fibrinogen dRVVT Confirm Interp Factor V Activity POC ABG pH POC ABG pCO2 POC ABG pO2 ABG pO2 ABG HCO3 ABG Base Excess ABG Hemoglobin Oxyhemoglobin Sodium Potassium Chloride Carbon Dioxide 10 L BUN 103 H Creatinine 4.3 H Glucose 163 H POC Glucose 173 H 167 H Lactic Acid Calcium 6.5 L Phosphorus Magnesium Direct Bilirubin AST ALT Alkaline Phosphatase Lactate Dehydrogenase Troponin T C-Reactive Protein Total Protein Albumin Prealbumin Triglycerides Cholesterol LDL Cholesterol Direct HDL Cholesterol Urine pH Urine WBC (Auto) Urine Creatinine Urine Total Protein Fluid Total Protein Vancomycin Trough Rheumatoid Factor Complement C4 Miscellaneous Test Crossmatch 09/24/16 09/24/16 09/24/16 20:15 21:02 23:48 WBC RBC Hgb Hct MCV MCH MCHC RDW Plt Count Lymph % (Auto) [place] % (Auto) Lymph # [place] # Baso # Seg Neutrophils % Seg Neuts % (Manual) Lymphocytes % (Manual) Monocytes % (Manual) Eosinophils % (Manual) Basophils % (Manual) Nucleated RBC % Seg Neutrophils # Seg Neutrophils # Man Lymphocytes # (Manual) Monocytes # (Manual) Eosinophils # (Manual) Basophils # (Manual) PT INR Fibrinogen dRVVT Confirm Interp Factor V Activity POC ABG pH 7.288 L POC ABG pCO2 30.2 L 21.5 L POC ABG pO2 32 L 39 L ABG pO2 ABG HCO3 ABG Base Excess ABG Hemoglobin Oxyhemoglobin Sodium Potassium Chloride Carbon Dioxide BUN Creatinine Glucose POC Glucose 109 H Lactic Acid Calcium Phosphorus Magnesium Direct Bilirubin AST ALT Alkaline Phosphatase Lactate Dehydrogenase Troponin T C-Reactive Protein Total Protein Albumin Prealbumin Triglycerides Cholesterol LDL Cholesterol Direct HDL Cholesterol Urine pH Urine WBC (Auto) Urine Creatinine Urine Total Protein Fluid Total Protein Vancomycin Trough Rheumatoid Factor Complement C4 Miscellaneous Test Crossmatch 09/25/16 09/25/16 09/25/16 04:20 04:20 04:20 WBC RBC 2.58 L Hgb 7.0 L Hct 21.0 L MCV MCH 27 L MCHC RDW 23.8 H Plt Count Lymph % (Auto) [place] % (Auto) Lymph # [place] # Baso # Seg Neutrophils % Seg Neuts % (Manual) Lymphocytes % (Manual) 12.0 L Monocytes % (Manual) Eosinophils % (Manual) 7.0 H Basophils % (Manual) 2.0 H Nucleated RBC % Seg Neutrophils # Seg Neutrophils # Man Lymphocytes # (Manual) 0.9 L Monocytes # (Manual) Eosinophils # (Manual) 0.5 H Basophils # (Manual) PT INR Fibrinogen dRVVT Confirm Interp Factor V Activity POC ABG pH POC ABG pCO2 POC ABG pO2 ABG pO2 ABG HCO3 ABG Base Excess ABG Hemoglobin Oxyhemoglobin Sodium Potassium Chloride Carbon Dioxide 15 L BUN 72 H Creatinine 3.8 H Glucose POC Glucose Lactic Acid Calcium 6.0 L Phosphorus 4.60 H Magnesium 1.60 L Direct Bilirubin AST ALT Alkaline Phosphatase Lactate Dehydrogenase Troponin T C-Reactive Protein Total Protein Albumin Prealbumin Triglycerides Cholesterol LDL Cholesterol Direct HDL Cholesterol Urine pH Urine WBC (Auto) Urine Creatinine Urine Total Protein Fluid Total Protein Vancomycin Trough Rheumatoid Factor Complement C4 Miscellaneous Test Crossmatch 09/25/16 09/25/16 09/25/16 04:57 08:02 10:30 WBC RBC Hgb Hct MCV MCH MCHC RDW Plt Count Lymph % (Auto) [place] % (Auto) Lymph # [place] # Baso # Seg Neutrophils % Seg Neuts % (Manual) Lymphocytes % (Manual) Monocytes % (Manual) Eosinophils % (Manual) Basophils % (Manual) Nucleated RBC % Seg Neutrophils # Seg Neutrophils # Man Lymphocytes # (Manual) Monocytes # (Manual) Eosinophils # (Manual) Basophils # (Manual) PT INR Fibrinogen dRVVT Confirm Interp Factor V Activity POC ABG pH POC ABG pCO2 24.7 L POC ABG pO2 152 H ABG pO2 ABG HCO3 ABG Base Excess ABG Hemoglobin Oxyhemoglobin Sodium Potassium Chloride Carbon Dioxide BUN Creatinine Glucose POC Glucose 113 H Lactic Acid Calcium Phosphorus Magnesium Direct Bilirubin AST ALT Alkaline Phosphatase Lactate Dehydrogenase Troponin T C-Reactive Protein Total Protein Albumin Prealbumin Triglycerides Cholesterol LDL Cholesterol Direct HDL Cholesterol Urine pH Urine WBC (Auto) Urine Creatinine Urine Total Protein Fluid Total Protein Vancomycin Trough Rheumatoid Factor Complement C4 Miscellaneous Test Crossmatch See Detail 09/25/16 09/25/16 09/25/16 12:05 17:44 23:47 WBC RBC Hgb Hct MCV MCH MCHC RDW Plt Count Lymph % (Auto) [place] % (Auto) Lymph # [place] # Baso # Seg Neutrophils % Seg Neuts % (Manual) Lymphocytes % (Manual) Monocytes % (Manual) Eosinophils % (Manual) Basophils % (Manual) Nucleated RBC % Seg Neutrophils # Seg Neutrophils # Man Lymphocytes # (Manual) Monocytes # (Manual) Eosinophils # (Manual) Basophils # (Manual) PT INR Fibrinogen dRVVT Confirm Interp Factor V Activity POC ABG pH POC ABG pCO2 POC ABG pO2 ABG pO2 ABG HCO3 ABG Base Excess ABG Hemoglobin Oxyhemoglobin Sodium Potassium Chloride Carbon Dioxide BUN Creatinine Glucose POC Glucose 117 H 119 H 150 H Lactic Acid Calcium Phosphorus Magnesium Direct Bilirubin AST ALT Alkaline Phosphatase Lactate Dehydrogenase Troponin T C-Reactive Protein Total Protein Albumin Prealbumin Triglycerides Cholesterol LDL Cholesterol Direct HDL Cholesterol Urine pH Urine WBC (Auto) Urine Creatinine Urine Total Protein Fluid Total Protein Vancomycin Trough Rheumatoid Factor Complement C4 Miscellaneous Test Crossmatch 09/26/16 09/26/16 09/26/16 04:25 04:25 04:25 WBC RBC 2.65 L Hgb 7.4 L Hct 21.6 L MCV MCH MCHC RDW 22.5 H Plt Count Lymph % (Auto) [place] % (Auto) Lymph # [place] # Baso # Seg Neutrophils % Seg Neuts % (Manual) Lymphocytes % (Manual) 6.0 L Monocytes % (Manual) Eosinophils % (Manual) 11.0 H Basophils % (Manual) Nucleated RBC % Seg Neutrophils # Seg Neutrophils # Man Lymphocytes # (Manual) 0.4 L Monocytes # (Manual) Eosinophils # (Manual) 0.6 H Basophils # (Manual) PT INR Fibrinogen dRVVT Confirm Interp Factor V Activity POC ABG pH POC ABG pCO2 POC ABG pO2 ABG pO2 ABG HCO3 ABG Base Excess ABG Hemoglobin Oxyhemoglobin Sodium Potassium Chloride 97.0 L Carbon Dioxide 19 L BUN 43 H Creatinine 2.6 H Glucose 130 H POC Glucose Lactic Acid 4.40 H* Calcium 6.7 L Phosphorus Magnesium Direct Bilirubin AST ALT Alkaline Phosphatase Lactate Dehydrogenase Troponin T C-Reactive Protein Total Protein Albumin Prealbumin Triglycerides Cholesterol LDL Cholesterol Direct HDL Cholesterol Urine pH Urine WBC (Auto) Urine Creatinine Urine Total Protein Fluid Total Protein Vancomycin Trough Rheumatoid Factor Complement C4 Miscellaneous Test Crossmatch 09/26/16 09/26/16 09/26/16 05:20 11:44 12:12 WBC RBC Hgb Hct MCV MCH MCHC RDW Plt Count Lymph % (Auto) [place] % (Auto) Lymph # [place] # Baso # Seg Neutrophils % Seg Neuts % (Manual) Lymphocytes % (Manual) Monocytes % (Manual) Eosinophils % (Manual) Basophils % (Manual) Nucleated RBC % Seg Neutrophils # Seg Neutrophils # Man Lymphocytes # (Manual) Monocytes # (Manual) Eosinophils # (Manual) Basophils # (Manual) PT INR Fibrinogen dRVVT Confirm Interp Factor V Activity POC ABG pH POC ABG pCO2 27.0 L POC ABG pO2 69 L ABG pO2 ABG HCO3 ABG Base Excess ABG Hemoglobin Oxyhemoglobin Sodium Potassium Chloride Carbon Dioxide BUN Creatinine Glucose POC Glucose 121 H 128 H Lactic Acid Calcium Phosphorus Magnesium Direct Bilirubin AST ALT Alkaline Phosphatase Lactate Dehydrogenase Troponin T C-Reactive Protein Total Protein Albumin Prealbumin Triglycerides Cholesterol LDL Cholesterol Direct HDL Cholesterol Urine pH Urine WBC (Auto) Urine Creatinine Urine Total Protein Fluid Total Protein Vancomycin Trough Rheumatoid Factor Complement C4 Miscellaneous Test Crossmatch 09/26/16 09/26/16 09/27/16 18:31 23:40 08:20 WBC RBC Hgb Hct MCV MCH MCHC RDW Plt Count Lymph % (Auto) [place] % (Auto) Lymph # [place] # Baso # Seg Neutrophils % Seg Neuts % (Manual) Lymphocytes % (Manual) Monocytes % (Manual) Eosinophils % (Manual) Basophils % (Manual) Nucleated RBC % Seg Neutrophils # Seg Neutrophils # Man Lymphocytes # (Manual) Monocytes # (Manual) Eosinophils # (Manual) Basophils # (Manual) PT INR Fibrinogen dRVVT Confirm Interp Factor V Activity POC ABG pH POC ABG pCO2 POC ABG pO2 ABG pO2 ABG HCO3 ABG Base Excess ABG Hemoglobin Oxyhemoglobin Sodium Potassium Chloride Carbon Dioxide BUN Creatinine Glucose POC Glucose 120 H 133 H Lactic Acid 4.10 H* Calcium Phosphorus Magnesium Direct Bilirubin AST ALT Alkaline Phosphatase Lactate Dehydrogenase Troponin T C-Reactive Protein Total Protein Albumin Prealbumin Triglycerides Cholesterol LDL Cholesterol Direct HDL Cholesterol Urine pH Urine WBC (Auto) Urine Creatinine Urine Total Protein Fluid Total Protein Vancomycin Trough Rheumatoid Factor Complement C4 Miscellaneous Test Crossmatch 09/27/16 09/27/16 09/27/16 11:23 15:00 18:15 WBC RBC Hgb Hct MCV MCH MCHC RDW Plt Count Lymph % (Auto) [place] % (Auto) Lymph # [place] # Baso # Seg Neutrophils % Seg Neuts % (Manual) Lymphocytes % (Manual) Monocytes % (Manual) Eosinophils % (Manual) Basophils % (Manual) Nucleated RBC % Seg Neutrophils # Seg Neutrophils # Man Lymphocytes # (Manual) Monocytes # (Manual) Eosinophils # (Manual) Basophils # (Manual) PT INR Fibrinogen dRVVT Confirm Interp Factor V Activity POC ABG pH 7.459 H POC ABG pCO2 27.1 L POC ABG pO2 140 H ABG pO2 ABG HCO3 ABG Base Excess ABG Hemoglobin Oxyhemoglobin Sodium Potassium Chloride Carbon Dioxide BUN Creatinine Glucose POC Glucose 114 H 127 H Lactic Acid Calcium Phosphorus Magnesium Direct Bilirubin AST ALT Alkaline Phosphatase Lactate Dehydrogenase Troponin T C-Reactive Protein Total Protein Albumin Prealbumin Triglycerides Cholesterol LDL Cholesterol Direct HDL Cholesterol Urine pH Urine WBC (Auto) Urine Creatinine Urine Total Protein Fluid Total Protein Vancomycin Trough Rheumatoid Factor Complement C4 Miscellaneous Test Crossmatch 09/27/16 09/27/16 09/28/16 Unknown Unknown 03:45 WBC RBC 2.49 L Hgb 6.8 L Hct 20.7 L MCV MCH 27 L MCHC RDW 22.1 H Plt Count Lymph % (Auto) [place] % (Auto) Lymph # [place] # Baso # Seg Neutrophils % Seg Neuts % (Manual) 32.0 L Lymphocytes % (Manual) 12.0 L Monocytes % (Manual) 11.0 H Eosinophils % (Manual) 10.0 H Basophils % (Manual) Nucleated RBC % Seg Neutrophils # Seg Neutrophils # Man Lymphocytes # (Manual) 1.0 L Monocytes # (Manual) 0.9 H Eosinophils # (Manual) 0.8 H Basophils # (Manual) PT INR Fibrinogen dRVVT Confirm Interp Factor V Activity POC ABG pH POC ABG pCO2 POC ABG pO2 ABG pO2 ABG HCO3 ABG Base Excess ABG Hemoglobin Oxyhemoglobin Sodium 135 L 135 L Potassium 3.5 L Chloride 93.6 L 94.4 L Carbon Dioxide 17 L 21 L BUN 45 H 28 H Creatinine 3.3 H 2.5 H Glucose 106 H POC Glucose Lactic Acid Calcium 7.3 L 7.1 L Phosphorus Magnesium Direct Bilirubin AST ALT Alkaline Phosphatase Lactate Dehydrogenase Troponin T C-Reactive Protein Total Protein Albumin Prealbumin Triglycerides Cholesterol LDL Cholesterol Direct HDL Cholesterol Urine pH Urine WBC (Auto) Urine Creatinine Urine Total Protein Fluid Total Protein Vancomycin Trough Rheumatoid Factor Complement C4 Miscellaneous Test Crossmatch 09/28/16 09/28/16 09/28/16 03:45 07:25 11:58 WBC 13.3 H RBC 3.01 L Hgb 8.4 L Hct 25.0 L MCV MCH MCHC RDW 20.5 H Plt Count 128 L Lymph % (Auto) [place] % (Auto) Lymph # [place] # Baso # Seg Neutrophils % Seg Neuts % (Manual) Lymphocytes % (Manual) 7.0 L Monocytes % (Manual) Eosinophils % (Manual) 6.0 H Basophils % (Manual) Nucleated RBC % Seg Neutrophils # Seg Neutrophils # Man Lymphocytes # (Manual) 0.9 L Monocytes # (Manual) Eosinophils # (Manual) 0.8 H Basophils # (Manual) PT INR Fibrinogen dRVVT Confirm Interp Factor V Activity POC ABG pH POC ABG pCO2 POC ABG pO2 ABG pO2 ABG HCO3 ABG Base Excess ABG Hemoglobin Oxyhemoglobin Sodium Potassium Chloride Carbon Dioxide BUN Creatinine Glucose POC Glucose 121 H Lactic Acid 4.50 H* Calcium Phosphorus Magnesium Direct Bilirubin AST ALT Alkaline Phosphatase Lactate Dehydrogenase Troponin T C-Reactive Protein Total Protein Albumin Prealbumin Triglycerides Cholesterol LDL Cholesterol Direct HDL Cholesterol Urine pH Urine WBC (Auto) Urine Creatinine Urine Total Protein Fluid Total Protein Vancomycin Trough Rheumatoid Factor Complement C4 Miscellaneous Test Crossmatch 09/29/16 09/29/16 09/29/16 06:45 06:45 06:45 WBC 14.9 H RBC 2.74 L Hgb 7.6 L Hct 23.2 L MCV MCH MCHC RDW 20.5 H Plt Count 81 L Lymph % (Auto) [place] % (Auto) Lymph # [place] # Baso # Seg Neutrophils % Seg Neuts % (Manual) 81.0 H Lymphocytes % (Manual) 4.0 L Monocytes % (Manual) Eosinophils % (Manual) Basophils % (Manual) Nucleated RBC % Seg Neutrophils # Seg Neutrophils # Man 12.1 H Lymphocytes # (Manual) 0.6 L Monocytes # (Manual) Eosinophils # (Manual) Basophils # (Manual) PT INR Fibrinogen dRVVT Confirm Interp Factor V Activity POC ABG pH POC ABG pCO2 POC ABG pO2 ABG pO2 ABG HCO3 ABG Base Excess ABG Hemoglobin Oxyhemoglobin Sodium 133 L Potassium 3.4 L Chloride 92.5 L Carbon Dioxide 21 L BUN 33 H Creatinine 3.0 H Glucose POC Glucose Lactic Acid Calcium 6.6 L Phosphorus Magnesium 1.40 L Direct Bilirubin 0.9 H AST ALT Alkaline Phosphatase Lactate Dehydrogenase Troponin T C-Reactive Protein Total Protein 4.3 L Albumin 1.3 L Prealbumin Triglycerides Cholesterol LDL Cholesterol Direct HDL Cholesterol Urine pH Urine WBC (Auto) Urine Creatinine Urine Total Protein Fluid Total Protein Vancomycin Trough Rheumatoid Factor Complement C4 Miscellaneous Test Crossmatch 09/29/16 09/29/16 09/30/16 17:52 20:12 00:07 WBC RBC Hgb Hct MCV MCH MCHC RDW Plt Count Lymph % (Auto) [place] % (Auto) Lymph # [place] # Baso # Seg Neutrophils % Seg Neuts % (Manual) Lymphocytes % (Manual) Monocytes % (Manual) Eosinophils % (Manual) Basophils % (Manual) Nucleated RBC % Seg Neutrophils # Seg Neutrophils # Man Lymphocytes # (Manual) Monocytes # (Manual) Eosinophils # (Manual) Basophils # (Manual) PT INR Fibrinogen dRVVT Confirm Interp Factor V Activity POC ABG pH POC ABG pCO2 POC ABG pO2 ABG pO2 ABG HCO3 ABG Base Excess ABG Hemoglobin Oxyhemoglobin Sodium Potassium Chloride Carbon Dioxide BUN Creatinine Glucose POC Glucose 50 L 51 L Lactic Acid Calcium Phosphorus Magnesium Direct Bilirubin AST ALT Alkaline Phosphatase Lactate Dehydrogenase Troponin T 0.204 H* C-Reactive Protein Total Protein Albumin Prealbumin Triglycerides Cholesterol 31 L LDL Cholesterol Direct 4 L HDL Cholesterol 3 L Urine pH Urine WBC (Auto) Urine Creatinine Urine Total Protein Fluid Total Protein Vancomycin Trough Rheumatoid Factor Complement C4 Miscellaneous Test Crossmatch 09/30/16 09/30/16 09/30/16 01:30 05:15 06:10 WBC RBC Hgb Hct MCV MCH MCHC RDW Plt Count Lymph % (Auto) [place] % (Auto) Lymph # [place] # Baso # Seg Neutrophils % Seg Neuts % (Manual) Lymphocytes % (Manual) Monocytes % (Manual) Eosinophils % (Manual) Basophils % (Manual) Nucleated RBC % Seg Neutrophils # Seg Neutrophils # Man Lymphocytes # (Manual) Monocytes # (Manual) Eosinophils # (Manual) Basophils # (Manual) PT INR Fibrinogen dRVVT Confirm Interp Factor V Activity POC ABG pH POC ABG pCO2 POC ABG pO2 ABG pO2 ABG HCO3 ABG Base Excess ABG Hemoglobin Oxyhemoglobin Sodium 133 L Potassium 3.2 L Chloride 93.2 L Carbon Dioxide 19 L BUN 36 H Creatinine 3.2 H Glucose 104 H POC Glucose 167 H 146 H Lactic Acid Calcium 6.4 L Phosphorus Magnesium 1.60 L Direct Bilirubin AST ALT Alkaline Phosphatase Lactate Dehydrogenase Troponin T C-Reactive Protein Total Protein Albumin Prealbumin Triglycerides Cholesterol LDL Cholesterol Direct HDL Cholesterol Urine pH Urine WBC (Auto) Urine Creatinine Urine Total Protein Fluid Total Protein Vancomycin Trough Rheumatoid Factor Complement C4 Miscellaneous Test Crossmatch 09/30/16 09/30/16 09/30/16 11:26 13:39 18:38 WBC RBC Hgb Hct MCV MCH MCHC RDW Plt Count Lymph % (Auto) [place] % (Auto) Lymph # [place] # Baso # Seg Neutrophils % Seg Neuts % (Manual) Lymphocytes % (Manual) Monocytes % (Manual) Eosinophils % (Manual) Basophils % (Manual) Nucleated RBC % Seg Neutrophils # Seg Neutrophils # Man Lymphocytes # (Manual) Monocytes # (Manual) Eosinophils # (Manual) Basophils # (Manual) PT INR Fibrinogen dRVVT Confirm Interp Factor V Activity POC ABG pH 7.479 H POC ABG pCO2 29.8 L POC ABG pO2 117 H ABG pO2 ABG HCO3 ABG Base Excess ABG Hemoglobin Oxyhemoglobin Sodium Potassium Chloride Carbon Dioxide BUN Creatinine Glucose POC Glucose 140 H 122 H Lactic Acid Calcium Phosphorus Magnesium Direct Bilirubin AST ALT Alkaline Phosphatase Lactate Dehydrogenase Troponin T C-Reactive Protein Total Protein Albumin Prealbumin Triglycerides Cholesterol LDL Cholesterol Direct HDL Cholesterol Urine pH Urine WBC (Auto) Urine Creatinine Urine Total Protein Fluid Total Protein Vancomycin Trough Rheumatoid Factor Complement C4 Miscellaneous Test Crossmatch 10/01/16 10/01/16 10/01/16 06:00 06:00 12:37 WBC 12.6 H RBC 2.75 L Hgb 7.3 L Hct 23.3 L MCV MCH 27 L MCHC RDW 20.6 H Plt Count 72 L Lymph % (Auto) [place] % (Auto) Lymph # [place] # Baso # Seg Neutrophils % Seg Neuts % (Manual) 31.0 L Lymphocytes % (Manual) 8.0 L Monocytes % (Manual) Eosinophils % (Manual) Basophils % (Manual) Nucleated RBC % 3.0 H Seg Neutrophils # Seg Neutrophils # Man Lymphocytes # (Manual) 1.0 L Monocytes # (Manual) Eosinophils # (Manual) Basophils # (Manual) PT INR Fibrinogen dRVVT Confirm Interp Factor V Activity POC ABG pH POC ABG pCO2 POC ABG pO2 ABG pO2 ABG HCO3 ABG Base Excess ABG Hemoglobin Oxyhemoglobin Sodium 127 L Potassium Chloride 86.8 L Carbon Dioxide 20 L BUN 42 H Creatinine 3.5 H Glucose POC Glucose 65 L Lactic Acid Calcium 7.0 L Phosphorus Magnesium Direct Bilirubin AST ALT Alkaline Phosphatase Lactate Dehydrogenase Troponin T C-Reactive Protein Total Protein Albumin Prealbumin Triglycerides Cholesterol LDL Cholesterol Direct HDL Cholesterol Urine pH Urine WBC (Auto) Urine Creatinine Urine Total Protein Fluid Total Protein Vancomycin Trough Rheumatoid Factor Complement C4 Miscellaneous Test Crossmatch 10/01/16 10/01/16 10/02/16 17:39 23:32 00:59 WBC RBC Hgb Hct MCV MCH MCHC RDW Plt Count Lymph % (Auto) [place] % (Auto) Lymph # [place] # Baso # Seg Neutrophils % Seg Neuts % (Manual) Lymphocytes % (Manual) Monocytes % (Manual) Eosinophils % (Manual) Basophils % (Manual) Nucleated RBC % Seg Neutrophils # Seg Neutrophils # Man Lymphocytes # (Manual) Monocytes # (Manual) Eosinophils # (Manual) Basophils # (Manual) PT INR Fibrinogen dRVVT Confirm Interp Factor V Activity POC ABG pH POC ABG pCO2 POC ABG pO2 ABG pO2 ABG HCO3 ABG Base Excess ABG Hemoglobin Oxyhemoglobin Sodium Potassium Chloride Carbon Dioxide BUN Creatinine Glucose POC Glucose 107 H 52 L 145 H Lactic Acid Calcium Phosphorus Magnesium Direct Bilirubin AST ALT Alkaline Phosphatase Lactate Dehydrogenase Troponin T C-Reactive Protein Total Protein Albumin Prealbumin Triglycerides Cholesterol LDL Cholesterol Direct HDL Cholesterol Urine pH Urine WBC (Auto) Urine Creatinine Urine Total Protein Fluid Total Protein Vancomycin Trough Rheumatoid Factor Complement C4 Miscellaneous Test Crossmatch 10/02/16 10/02/16 10/02/16 10:30 10:50 10:50 WBC 14.7 H RBC 2.76 L Hgb 7.4 L Hct 23.6 L MCV MCH 27 L MCHC RDW 20.2 H Plt Count 79 L Lymph % (Auto) [place] % (Auto) Lymph # [place] # Baso # Seg Neutrophils % Seg Neuts % (Manual) 86.0 H Lymphocytes % (Manual) 6.0 L Monocytes % (Manual) Eosinophils % (Manual) Basophils % (Manual) Nucleated RBC % Seg Neutrophils # Seg Neutrophils # Man 12.6 H Lymphocytes # (Manual) 0.9 L Monocytes # (Manual) Eosinophils # (Manual) Basophils # (Manual) PT INR Fibrinogen dRVVT Confirm Interp Factor V Activity POC ABG pH 7.486 H POC ABG pCO2 30.1 L POC ABG pO2 108 H ABG pO2 ABG HCO3 ABG Base Excess ABG Hemoglobin Oxyhemoglobin Sodium 131 L Potassium 3.4 L Chloride 89.9 L Carbon Dioxide BUN 26 H Creatinine 2.6 H Glucose POC Glucose Lactic Acid Calcium 7.0 L Phosphorus Magnesium Direct Bilirubin AST ALT Alkaline Phosphatase Lactate Dehydrogenase Troponin T C-Reactive Protein Total Protein Albumin Prealbumin Triglycerides Cholesterol LDL Cholesterol Direct HDL Cholesterol Urine pH Urine WBC (Auto) Urine Creatinine Urine Total Protein Fluid Total Protein Vancomycin Trough Rheumatoid Factor Complement C4 Miscellaneous Test Crossmatch 10/02/16 10/03/16 10/03/16 23:45 00:45 05:10 WBC 12.9 H RBC 2.77 L Hgb 7.6 L Hct 23.7 L MCV MCH 27 L MCHC RDW 19.7 H Plt Count 89 L Lymph % (Auto) [place] % (Auto) Lymph # [place] # Baso # Seg Neutrophils % Seg Neuts % (Manual) Lymphocytes % (Manual) 8.0 L Monocytes % (Manual) Eosinophils % (Manual) Basophils % (Manual) Nucleated RBC % Seg Neutrophils # 11.9 H Seg Neutrophils # Man Lymphocytes # (Manual) 1.0 L Monocytes # (Manual) Eosinophils # (Manual) Basophils # (Manual) PT INR Fibrinogen dRVVT Confirm Interp Factor V Activity POC ABG pH POC ABG pCO2 POC ABG pO2 ABG pO2 ABG HCO3 ABG Base Excess ABG Hemoglobin Oxyhemoglobin Sodium Potassium Chloride Carbon Dioxide BUN Creatinine Glucose POC Glucose 55 L 199 H Lactic Acid Calcium Phosphorus Magnesium Direct Bilirubin AST ALT Alkaline Phosphatase Lactate Dehydrogenase Troponin T C-Reactive Protein Total Protein Albumin Prealbumin Triglycerides Cholesterol LDL Cholesterol Direct HDL Cholesterol Urine pH Urine WBC (Auto) Urine Creatinine Urine Total Protein Fluid Total Protein Vancomycin Trough Rheumatoid Factor Complement C4 Miscellaneous Test Crossmatch 10/03/16 10/03/16 10/03/16 05:10 12:14 13:18 WBC RBC Hgb Hct MCV MCH MCHC RDW Plt Count Lymph % (Auto) [place] % (Auto) Lymph # [place] # Baso # Seg Neutrophils % Seg Neuts % (Manual) Lymphocytes % (Manual) Monocytes % (Manual) Eosinophils % (Manual) Basophils % (Manual) Nucleated RBC % Seg Neutrophils # Seg Neutrophils # Man Lymphocytes # (Manual) Monocytes # (Manual) Eosinophils # (Manual) Basophils # (Manual) PT INR Fibrinogen dRVVT Confirm Interp Factor V Activity POC ABG pH POC ABG pCO2 POC ABG pO2 ABG pO2 ABG HCO3 ABG Base Excess ABG Hemoglobin Oxyhemoglobin Sodium 129 L Potassium 3.3 L Chloride 88.8 L Carbon Dioxide 20 L BUN 29 H Creatinine 2.8 H Glucose POC Glucose 68 L 127 H Lactic Acid Calcium 7.2 L Phosphorus Magnesium Direct Bilirubin AST ALT Alkaline Phosphatase Lactate Dehydrogenase Troponin T C-Reactive Protein Total Protein Albumin Prealbumin Triglycerides Cholesterol LDL Cholesterol Direct HDL Cholesterol Urine pH Urine WBC (Auto) Urine Creatinine Urine Total Protein Fluid Total Protein Vancomycin Trough Rheumatoid Factor Complement C4 Miscellaneous Test Crossmatch 10/03/16 10/03/16 10/03/16 14:42 18:21 19:09 WBC RBC Hgb Hct MCV MCH MCHC RDW Plt Count Lymph % (Auto) [place] % (Auto) Lymph # [place] # Baso # Seg Neutrophils % Seg Neuts % (Manual) Lymphocytes % (Manual) Monocytes % (Manual) Eosinophils % (Manual) Basophils % (Manual) Nucleated RBC % Seg Neutrophils # Seg Neutrophils # Man Lymphocytes # (Manual) Monocytes # (Manual) Eosinophils # (Manual) Basophils # (Manual) PT INR Fibrinogen dRVVT Confirm Interp Factor V Activity POC ABG pH 7.499 H POC ABG pCO2 28.4 L POC ABG pO2 44 L ABG pO2 ABG HCO3 ABG Base Excess ABG Hemoglobin Oxyhemoglobin Sodium Potassium Chloride Carbon Dioxide BUN Creatinine Glucose POC Glucose 64 L 205 H Lactic Acid Calcium Phosphorus Magnesium Direct Bilirubin AST ALT Alkaline Phosphatase Lactate Dehydrogenase Troponin T C-Reactive Protein Total Protein Albumin Prealbumin Triglycerides Cholesterol LDL Cholesterol Direct HDL Cholesterol Urine pH Urine WBC (Auto) Urine Creatinine Urine Total Protein Fluid Total Protein Vancomycin Trough Rheumatoid Factor Complement C4 Miscellaneous Test Crossmatch 10/03/16 10/04/16 10/04/16 23:33 04:18 06:30 WBC RBC 2.54 L Hgb 7.1 L Hct 21.7 L MCV MCH MCHC RDW 19.5 H Plt Count 76 L Lymph % (Auto) [place] % (Auto) Lymph # [place] # Baso # Seg Neutrophils % Seg Neuts % (Manual) 88.0 H Lymphocytes % (Manual) 6.0 L Monocytes % (Manual) Eosinophils % (Manual) Basophils % (Manual) Nucleated RBC % Seg Neutrophils # Seg Neutrophils # Man 8.8 H Lymphocytes # (Manual) 0.6 L Monocytes # (Manual) Eosinophils # (Manual) Basophils # (Manual) PT INR Fibrinogen dRVVT Confirm Interp Factor V Activity POC ABG pH 7.461 H POC ABG pCO2 33.6 L POC ABG pO2 211 H ABG pO2 ABG HCO3 ABG Base Excess ABG Hemoglobin Oxyhemoglobin Sodium Potassium Chloride Carbon Dioxide BUN Creatinine Glucose POC Glucose 136 H Lactic Acid Calcium Phosphorus Magnesium Direct Bilirubin AST ALT Alkaline Phosphatase Lactate Dehydrogenase Troponin T C-Reactive Protein Total Protein Albumin Prealbumin Triglycerides Cholesterol LDL Cholesterol Direct HDL Cholesterol Urine pH Urine WBC (Auto) Urine Creatinine Urine Total Protein Fluid Total Protein Vancomycin Trough Rheumatoid Factor Complement C4 Miscellaneous Test Crossmatch 10/04/16 10/04/16 10/04/16 06:30 11:45 17:54 WBC RBC Hgb Hct MCV MCH MCHC RDW Plt Count Lymph % (Auto) [place] % (Auto) Lymph # [place] # Baso # Seg Neutrophils % Seg Neuts % (Manual) Lymphocytes % (Manual) Monocytes % (Manual) Eosinophils % (Manual) Basophils % (Manual) Nucleated RBC % Seg Neutrophils # Seg Neutrophils # Man Lymphocytes # (Manual) Monocytes # (Manual) Eosinophils # (Manual) Basophils # (Manual) PT INR Fibrinogen dRVVT Confirm Interp Factor V Activity POC ABG pH POC ABG pCO2 POC ABG pO2 ABG pO2 ABG HCO3 ABG Base Excess ABG Hemoglobin Oxyhemoglobin Sodium 128 L Potassium Chloride 87.4 L Carbon Dioxide 20 L BUN 34 H Creatinine 2.9 H Glucose 127 H POC Glucose 158 H 160 H Lactic Acid Calcium 7.4 L Phosphorus Magnesium Direct Bilirubin AST ALT Alkaline Phosphatase Lactate Dehydrogenase Troponin T C-Reactive Protein Total Protein Albumin Prealbumin Triglycerides Cholesterol LDL Cholesterol Direct HDL Cholesterol Urine pH Urine WBC (Auto) Urine Creatinine Urine Total Protein Fluid Total Protein Vancomycin Trough Rheumatoid Factor Complement C4 Miscellaneous Test Crossmatch 10/04/16 10/05/16 10/05/16 23:25 04:30 05:00 WBC RBC 2.64 L Hgb 7.5 L Hct 22.6 L MCV MCH MCHC RDW 19.3 H Plt Count 80 L Lymph % (Auto) [place] % (Auto) Lymph # [place] # Baso # Seg Neutrophils % Seg Neuts % (Manual) Lymphocytes % (Manual) 12.0 L Monocytes % (Manual) Eosinophils % (Manual) Basophils % (Manual) Nucleated RBC % Seg Neutrophils # Seg Neutrophils # Man Lymphocytes # (Manual) Monocytes # (Manual) Eosinophils # (Manual) Basophils # (Manual) PT INR Fibrinogen dRVVT Confirm Interp Factor V Activity POC ABG pH 7.475 H POC ABG pCO2 33.3 L POC ABG pO2 140 H ABG pO2 ABG HCO3 ABG Base Excess ABG Hemoglobin Oxyhemoglobin Sodium Potassium Chloride Carbon Dioxide BUN Creatinine Glucose POC Glucose 141 H Lactic Acid Calcium Phosphorus Magnesium Direct Bilirubin AST ALT Alkaline Phosphatase Lactate Dehydrogenase Troponin T C-Reactive Protein Total Protein Albumin Prealbumin Triglycerides Cholesterol LDL Cholesterol Direct HDL Cholesterol Urine pH Urine WBC (Auto) Urine Creatinine Urine Total Protein Fluid Total Protein Vancomycin Trough Rheumatoid Factor Complement C4 Miscellaneous Test Crossmatch 10/05/16 10/05/16 10/05/16 05:00 05:09 12:58 WBC RBC Hgb Hct MCV MCH MCHC RDW Plt Count Lymph % (Auto) [place] % (Auto) Lymph # [place] # Baso # Seg Neutrophils % Seg Neuts % (Manual) Lymphocytes % (Manual) Monocytes % (Manual) Eosinophils % (Manual) Basophils % (Manual) Nucleated RBC % Seg Neutrophils # Seg Neutrophils # Man Lymphocytes # (Manual) Monocytes # (Manual) Eosinophils # (Manual) Basophils # (Manual) PT INR Fibrinogen dRVVT Confirm Interp Factor V Activity POC ABG pH POC ABG pCO2 POC ABG pO2 ABG pO2 ABG HCO3 ABG Base Excess ABG Hemoglobin Oxyhemoglobin Sodium 131 L Potassium Chloride 94.0 L Carbon Dioxide 20 L BUN 22 H Creatinine 2.0 H Glucose 123 H POC Glucose 166 H 179 H Lactic Acid Calcium 7.7 L Phosphorus 2.20 L D Magnesium Direct Bilirubin AST ALT Alkaline Phosphatase Lactate Dehydrogenase Troponin T C-Reactive Protein Total Protein Albumin Prealbumin Triglycerides Cholesterol LDL Cholesterol Direct HDL Cholesterol Urine pH Urine WBC (Auto) Urine Creatinine Urine Total Protein Fluid Total Protein Vancomycin Trough Rheumatoid Factor Complement C4 Miscellaneous Test Crossmatch 10/05/16 10/05/16 10/05/16 15:50 18:53 23:12 WBC RBC Hgb Hct MCV MCH MCHC RDW Plt Count Lymph % (Auto) [place] % (Auto) Lymph # [place] # Baso # Seg Neutrophils % Seg Neuts % (Manual) Lymphocytes % (Manual) Monocytes % (Manual) Eosinophils % (Manual) Basophils % (Manual) Nucleated RBC % Seg Neutrophils # Seg Neutrophils # Man Lymphocytes # (Manual) Monocytes # (Manual) Eosinophils # (Manual) Basophils # (Manual) PT INR Fibrinogen dRVVT Confirm Interp Factor V Activity POC ABG pH POC ABG pCO2 POC ABG pO2 ABG pO2 ABG HCO3 ABG Base Excess ABG Hemoglobin Oxyhemoglobin Sodium Potassium Chloride Carbon Dioxide BUN Creatinine Glucose POC Glucose 150 H 164 H Lactic Acid Calcium Phosphorus Magnesium Direct Bilirubin AST ALT Alkaline Phosphatase Lactate Dehydrogenase Troponin T C-Reactive Protein Total Protein Albumin Prealbumin Triglycerides Cholesterol LDL Cholesterol Direct HDL Cholesterol Urine pH Urine WBC (Auto) Urine Creatinine Urine Total Protein Fluid Total Protein Vancomycin Trough Rheumatoid Factor Complement C4 Miscellaneous Test Crossmatch See Detail 10/06/16 10/06/16 10/06/16 03:50 03:50 04:53 WBC RBC 3.00 L Hgb 8.6 L Hct 25.8 L MCV MCH MCHC RDW 17.9 H Plt Count 65 L Lymph % (Auto) [place] % (Auto) Lymph # [place] # Baso # Seg Neutrophils % Seg Neuts % (Manual) 30.0 L Lymphocytes % (Manual) 5.0 L Monocytes % (Manual) Eosinophils % (Manual) Basophils % (Manual) Nucleated RBC % Seg Neutrophils # Seg Neutrophils # Man Lymphocytes # (Manual) 0.4 L Monocytes # (Manual) Eosinophils # (Manual) Basophils # (Manual) PT INR Fibrinogen dRVVT Confirm Interp Factor V Activity POC ABG pH 7.310 L POC ABG pCO2 49.0 H POC ABG pO2 ABG pO2 ABG HCO3 ABG Base Excess ABG Hemoglobin Oxyhemoglobin Sodium 133 L Potassium Chloride 95.9 L Carbon Dioxide BUN 26 H Creatinine 2.0 H Glucose 116 H POC Glucose Lactic Acid Calcium 7.8 L Phosphorus Magnesium Direct Bilirubin AST ALT Alkaline Phosphatase Lactate Dehydrogenase Troponin T C-Reactive Protein Total Protein Albumin Prealbumin Triglycerides Cholesterol LDL Cholesterol Direct HDL Cholesterol Urine pH Urine WBC (Auto) Urine Creatinine Urine Total Protein Fluid Total Protein Vancomycin Trough Rheumatoid Factor Complement C4 Miscellaneous Test Crossmatch 10/06/16 10/06/16 10/06/16 05:23 11:52 18:34 WBC RBC Hgb Hct MCV MCH MCHC RDW Plt Count Lymph % (Auto) [place] % (Auto) Lymph # [place] # Baso # Seg Neutrophils % Seg Neuts % (Manual) Lymphocytes % (Manual) Monocytes % (Manual) Eosinophils % (Manual) Basophils % (Manual) Nucleated RBC % Seg Neutrophils # Seg Neutrophils # Man Lymphocytes # (Manual) Monocytes # (Manual) Eosinophils # (Manual) Basophils # (Manual) PT INR Fibrinogen dRVVT Confirm Interp Factor V Activity POC ABG pH POC ABG pCO2 POC ABG pO2 ABG pO2 ABG HCO3 ABG Base Excess ABG Hemoglobin Oxyhemoglobin Sodium Potassium Chloride Carbon Dioxide BUN Creatinine Glucose POC Glucose 126 H 116 H 129 H Lactic Acid Calcium Phosphorus Magnesium Direct Bilirubin AST ALT Alkaline Phosphatase Lactate Dehydrogenase Troponin T C-Reactive Protein Total Protein Albumin Prealbumin Triglycerides Cholesterol LDL Cholesterol Direct HDL Cholesterol Urine pH Urine WBC (Auto) Urine Creatinine Urine Total Protein Fluid Total Protein Vancomycin Trough Rheumatoid Factor Complement C4 Miscellaneous Test Crossmatch 10/07/16 10/07/16 10/07/16 03:45 05:00 10:00 WBC 17.0 H RBC 2.68 L Hgb 7.3 L Hct 25.3 L MCV MCH 27 L MCHC 29 L RDW 19.6 H Plt Count 74 L Lymph % (Auto) [place] % (Auto) Lymph # [place] # Baso # Seg Neutrophils % Seg Neuts % (Manual) Lymphocytes % (Manual) 12.0 L Monocytes % (Manual) Eosinophils % (Manual) Basophils % (Manual) Nucleated RBC % 4.0 H Seg Neutrophils # Seg Neutrophils # Man 10.7 H Lymphocytes # (Manual) Monocytes # (Manual) Eosinophils # (Manual) Basophils # (Manual) PT INR Fibrinogen dRVVT Confirm Interp Factor V Activity POC ABG pH POC ABG pCO2 POC ABG pO2 ABG pO2 ABG HCO3 ABG Base Excess ABG Hemoglobin Oxyhemoglobin Sodium 130 L Potassium 3.2 L Chloride 93.9 L Carbon Dioxide 20 L BUN 44 H Creatinine 2.7 H Glucose 129 H POC Glucose Lactic Acid Calcium 7.4 L Phosphorus Magnesium Direct Bilirubin AST ALT 6 L Alkaline Phosphatase 195 H Lactate Dehydrogenase Troponin T C-Reactive Protein Total Protein 4.9 L Albumin 1.0 L Prealbumin Triglycerides Cholesterol LDL Cholesterol Direct HDL Cholesterol Urine pH Urine WBC (Auto) Urine Creatinine Urine Total Protein Fluid Total Protein Vancomycin Trough Rheumatoid Factor Complement C4 Miscellaneous Test Flexitest 1 H Crossmatch 10/07/16 10/07/16 10/07/16 10:00 11:24 18:10 WBC RBC Hgb Hct MCV MCH MCHC RDW Plt Count Lymph % (Auto) [place] % (Auto) Lymph # [place] # Baso # Seg Neutrophils % Seg Neuts % (Manual) Lymphocytes % (Manual) Monocytes % (Manual) Eosinophils % (Manual) Basophils % (Manual) Nucleated RBC % Seg Neutrophils # Seg Neutrophils # Man Lymphocytes # (Manual) Monocytes # (Manual) Eosinophils # (Manual) Basophils # (Manual) PT INR Fibrinogen dRVVT Confirm Interp Factor V Activity POC ABG pH POC ABG pCO2 POC ABG pO2 ABG pO2 ABG HCO3 ABG Base Excess ABG Hemoglobin Oxyhemoglobin Sodium Potassium Chloride Carbon Dioxide BUN Creatinine Glucose POC Glucose 116 H 130 H Lactic Acid Calcium Phosphorus Magnesium Direct Bilirubin AST ALT Alkaline Phosphatase Lactate Dehydrogenase Troponin T C-Reactive Protein 19.40 H Total Protein Albumin Prealbumin Triglycerides Cholesterol LDL Cholesterol Direct HDL Cholesterol Urine pH Urine WBC (Auto) Urine Creatinine Urine Total Protein Fluid Total Protein Vancomycin Trough Rheumatoid Factor Complement C4 Miscellaneous Test Crossmatch 10/07/16 10/08/16 10/08/16 18:30 00:00 04:00 WBC RBC Hgb Hct MCV MCH MCHC RDW Plt Count Lymph % (Auto) [place] % (Auto) Lymph # [place] # Baso # Seg Neutrophils % Seg Neuts % (Manual) Lymphocytes % (Manual) Monocytes % (Manual) Eosinophils % (Manual) Basophils % (Manual) Nucleated RBC % Seg Neutrophils # Seg Neutrophils # Man Lymphocytes # (Manual) Monocytes # (Manual) Eosinophils # (Manual) Basophils # (Manual) PT INR Fibrinogen dRVVT Confirm Interp Factor V Activity POC ABG pH POC ABG pCO2 POC ABG pO2 ABG pO2 ABG HCO3 ABG Base Excess ABG Hemoglobin Oxyhemoglobin Sodium 132 L Potassium 3.3 L Chloride 93.6 L Carbon Dioxide 17 L BUN 59 H Creatinine 2.7 H Glucose 121 H POC Glucose 122 H Lactic Acid Calcium 7.6 L Phosphorus Magnesium Direct Bilirubin AST ALT Alkaline Phosphatase Lactate Dehydrogenase Troponin T C-Reactive Protein Total Protein Albumin Prealbumin Triglycerides Cholesterol LDL Cholesterol Direct HDL Cholesterol Urine pH Urine WBC (Auto) > 182.0 H Urine Creatinine Urine Total Protein Fluid Total Protein Vancomycin Trough Rheumatoid Factor Complement C4 Miscellaneous Test Crossmatch 10/08/16 10/08/16 10/08/16 04:30 05:30 11:51 WBC RBC 5.15 H Hgb 14.4 H D Hct 44.5 H D MCV MCH MCHC RDW 19.5 H Plt Count 56 L Lymph % (Auto) [place] % (Auto) Lymph # [place] # Baso # Seg Neutrophils % Seg Neuts % (Manual) 24.0 L Lymphocytes % (Manual) 8.0 L Monocytes % (Manual) Eosinophils % (Manual) Basophils % (Manual) Nucleated RBC % 9.0 H Seg Neutrophils # Seg Neutrophils # Man Lymphocytes # (Manual) 0.7 L Monocytes # (Manual) Eosinophils # (Manual) Basophils # (Manual) PT INR Fibrinogen dRVVT Confirm Interp Factor V Activity POC ABG pH POC ABG pCO2 POC ABG pO2 ABG pO2 ABG HCO3 ABG Base Excess ABG Hemoglobin Oxyhemoglobin Sodium Potassium Chloride Carbon Dioxide BUN Creatinine Glucose POC Glucose 125 H 150 H Lactic Acid Calcium Phosphorus Magnesium Direct Bilirubin AST ALT Alkaline Phosphatase Lactate Dehydrogenase Troponin T C-Reactive Protein Total Protein Albumin Prealbumin Triglycerides Cholesterol LDL Cholesterol Direct HDL Cholesterol Urine pH Urine WBC (Auto) Urine Creatinine Urine Total Protein Fluid Total Protein Vancomycin Trough Rheumatoid Factor Complement C4 Miscellaneous Test Crossmatch 10/08/16 10/08/16 10/08/16 12:49 17:07 19:30 WBC RBC Hgb 7.1 L D Hct 22.4 L D MCV MCH MCHC RDW Plt Count Lymph % (Auto) [place] % (Auto) Lymph # [place] # Baso # Seg Neutrophils % Seg Neuts % (Manual) Lymphocytes % (Manual) Monocytes % (Manual) Eosinophils % (Manual) Basophils % (Manual) Nucleated RBC % Seg Neutrophils # Seg Neutrophils # Man Lymphocytes # (Manual) Monocytes # (Manual) Eosinophils # (Manual) Basophils # (Manual) PT INR Fibrinogen dRVVT Confirm Interp Factor V Activity POC ABG pH POC ABG pCO2 28.2 L POC ABG pO2 111 H ABG pO2 ABG HCO3 ABG Base Excess ABG Hemoglobin Oxyhemoglobin Sodium Potassium Chloride Carbon Dioxide BUN Creatinine Glucose POC Glucose 145 H Lactic Acid Calcium Phosphorus Magnesium Direct Bilirubin AST ALT Alkaline Phosphatase Lactate Dehydrogenase Troponin T C-Reactive Protein Total Protein Albumin Prealbumin Triglycerides Cholesterol LDL Cholesterol Direct HDL Cholesterol Urine pH Urine WBC (Auto) Urine Creatinine Urine Total Protein Fluid Total Protein Vancomycin Trough Rheumatoid Factor Complement C4 Miscellaneous Test Crossmatch 10/08/16 10/09/16 10/09/16 19:30 03:45 03:45 WBC 12.6 H RBC 2.36 L Hgb 6.7 L Hct 21.1 L MCV MCH MCHC RDW 19.5 H Plt Count 75 L Lymph % (Auto) [place] % (Auto) Lymph # [place] # Baso # Seg Neutrophils % Seg Neuts % (Manual) Lymphocytes % (Manual) Monocytes % (Manual) 10.0 H Eosinophils % (Manual) Basophils % (Manual) Nucleated RBC % 3.0 H Seg Neutrophils # Seg Neutrophils # Man Lymphocytes # (Manual) Monocytes # (Manual) 1.3 H Eosinophils # (Manual) Basophils # (Manual) PT 18.0 H INR 1.41 H Fibrinogen dRVVT Confirm Interp Factor V Activity POC ABG pH POC ABG pCO2 POC ABG pO2 ABG pO2 ABG HCO3 ABG Base Excess ABG Hemoglobin Oxyhemoglobin Sodium 135 L Potassium Chloride Carbon Dioxide 17 L BUN 81 H Creatinine 3.2 H Glucose 109 H POC Glucose Lactic Acid Calcium 7.4 L Phosphorus 4.60 H D Magnesium Direct Bilirubin AST ALT Alkaline Phosphatase Lactate Dehydrogenase Troponin T C-Reactive Protein Total Protein Albumin Prealbumin Triglycerides Cholesterol LDL Cholesterol Direct HDL Cholesterol Urine pH Urine WBC (Auto) Urine Creatinine Urine Total Protein Fluid Total Protein Vancomycin Trough Rheumatoid Factor Complement C4 Miscellaneous Test Crossmatch 10/09/16 10/09/16 10/09/16 03:45 05:14 07:20 WBC RBC Hgb Hct MCV MCH MCHC RDW Plt Count Lymph % (Auto) [place] % (Auto) Lymph # [place] # Baso # Seg Neutrophils % Seg Neuts % (Manual) Lymphocytes % (Manual) Monocytes % (Manual) Eosinophils % (Manual) Basophils % (Manual) Nucleated RBC % Seg Neutrophils # Seg Neutrophils # Man Lymphocytes # (Manual) Monocytes # (Manual) Eosinophils # (Manual) Basophils # (Manual) PT 19.0 H INR 1.51 H Fibrinogen dRVVT Confirm Interp Factor V Activity POC ABG pH POC ABG pCO2 POC ABG pO2 ABG pO2 ABG HCO3 ABG Base Excess ABG Hemoglobin Oxyhemoglobin Sodium Potassium Chloride Carbon Dioxide BUN Creatinine Glucose POC Glucose 151 H Lactic Acid Calcium Phosphorus Magnesium Direct Bilirubin AST ALT Alkaline Phosphatase Lactate Dehydrogenase Troponin T C-Reactive Protein Total Protein Albumin Prealbumin Triglycerides Cholesterol LDL Cholesterol Direct HDL Cholesterol Urine pH Urine WBC (Auto) Urine Creatinine Urine Total Protein Fluid Total Protein Vancomycin Trough Rheumatoid Factor Complement C4 Miscellaneous Test Crossmatch See Detail 10/09/16 10/09/16 10/09/16 11:46 16:20 16:43 WBC RBC Hgb 7.2 L Hct 22.2 L MCV MCH MCHC RDW Plt Count Lymph % (Auto) [place] % (Auto) Lymph # [place] # Baso # Seg Neutrophils % Seg Neuts % (Manual) Lymphocytes % (Manual) Monocytes % (Manual) Eosinophils % (Manual) Basophils % (Manual) Nucleated RBC % Seg Neutrophils # Seg Neutrophils # Man Lymphocytes # (Manual) Monocytes # (Manual) Eosinophils # (Manual) Basophils # (Manual) PT INR Fibrinogen dRVVT Confirm Interp Factor V Activity POC ABG pH POC ABG pCO2 POC ABG pO2 ABG pO2 ABG HCO3 ABG Base Excess ABG Hemoglobin Oxyhemoglobin Sodium Potassium Chloride Carbon Dioxide BUN Creatinine Glucose POC Glucose 133 H 141 H Lactic Acid Calcium Phosphorus Magnesium Direct Bilirubin AST ALT Alkaline Phosphatase Lactate Dehydrogenase Troponin T C-Reactive Protein Total Protein Albumin Prealbumin Triglycerides Cholesterol LDL Cholesterol Direct HDL Cholesterol Urine pH Urine WBC (Auto) Urine Creatinine Urine Total Protein Fluid Total Protein Vancomycin Trough Rheumatoid Factor Complement C4 Miscellaneous Test Crossmatch 10/10/16 10/10/16 10/10/16 05:00 05:00 11:19 WBC 18.5 H RBC 2.19 L Hgb 6.4 L Hct 19.6 L* MCV MCH MCHC RDW 19.3 H Plt Count 93 L Lymph % (Auto) [place] % (Auto) Lymph # [place] # Baso # Seg Neutrophils % Seg Neuts % (Manual) Lymphocytes % (Manual) 10.0 L Monocytes % (Manual) Eosinophils % (Manual) Basophils % (Manual) Nucleated RBC % 4.0 H Seg Neutrophils # Seg Neutrophils # Man 11.3 H Lymphocytes # (Manual) Monocytes # (Manual) Eosinophils # (Manual) Basophils # (Manual) PT INR Fibrinogen dRVVT Confirm Interp Factor V Activity POC ABG pH POC ABG pCO2 POC ABG pO2 ABG pO2 ABG HCO3 ABG Base Excess ABG Hemoglobin Oxyhemoglobin Sodium Potassium 5.7 H D Chloride Carbon Dioxide 16 L BUN 94 H Creatinine 3.1 H Glucose 131 H POC Glucose 153 H Lactic Acid Calcium 8.2 L Phosphorus 5.10 H Magnesium 2.40 H Direct Bilirubin 0.3 H AST ALT < 5 L Alkaline Phosphatase 319 H Lactate Dehydrogenase Troponin T C-Reactive Protein Total Protein 5.1 L Albumin 1.0 L Prealbumin Triglycerides Cholesterol LDL Cholesterol Direct HDL Cholesterol Urine pH Urine WBC (Auto) Urine Creatinine Urine Total Protein Fluid Total Protein Vancomycin Trough Rheumatoid Factor Complement C4 Miscellaneous Test Crossmatch 10/10/16 10/10/16 10/11/16 17:50 23:30 04:15 WBC RBC Hgb Hct MCV MCH MCHC RDW Plt Count Lymph % (Auto) [place] % (Auto) Lymph # [place] # Baso # Seg Neutrophils % Seg Neuts % (Manual) Lymphocytes % (Manual) Monocytes % (Manual) Eosinophils % (Manual) Basophils % (Manual) Nucleated RBC % Seg Neutrophils # Seg Neutrophils # Man Lymphocytes # (Manual) Monocytes # (Manual) Eosinophils # (Manual) Basophils # (Manual) PT INR Fibrinogen dRVVT Confirm Interp Factor V Activity POC ABG pH POC ABG pCO2 POC ABG pO2 ABG pO2 ABG HCO3 ABG Base Excess ABG Hemoglobin Oxyhemoglobin Sodium Potassium Chloride 96.4 L Carbon Dioxide 21 L BUN 57 H Creatinine 2.1 H Glucose 151 H POC Glucose 146 H 141 H Lactic Acid Calcium 8.3 L Phosphorus Magnesium Direct Bilirubin AST ALT Alkaline Phosphatase Lactate Dehydrogenase Troponin T C-Reactive Protein Total Protein Albumin Prealbumin Triglycerides Cholesterol LDL Cholesterol Direct HDL Cholesterol Urine pH Urine WBC (Auto) Urine Creatinine Urine Total Protein Fluid Total Protein Vancomycin Trough Rheumatoid Factor Complement C4 Miscellaneous Test Crossmatch 10/11/16 10/11/16 10/11/16 04:15 04:15 05:30 WBC 28.3 H RBC 3.12 L Hgb 9.3 L Hct 28.7 L D MCV MCH MCHC RDW 17.7 H Plt Count 128 L Lymph % (Auto) [place] % (Auto) Lymph # [place] # Baso # Seg Neutrophils % Seg Neuts % (Manual) Lymphocytes % (Manual) Monocytes % (Manual) Eosinophils % (Manual) Basophils % (Manual) Nucleated RBC % Seg Neutrophils # Seg Neutrophils # Man Lymphocytes # (Manual) Monocytes # (Manual) Eosinophils # (Manual) Basophils # (Manual) PT INR Fibrinogen dRVVT Confirm Interp Factor V Activity POC ABG pH POC ABG pCO2 POC ABG pO2 ABG pO2 ABG HCO3 ABG Base Excess ABG Hemoglobin Oxyhemoglobin Sodium Potassium Chloride Carbon Dioxide BUN Creatinine Glucose POC Glucose 167 H Lactic Acid Calcium Phosphorus Magnesium Direct Bilirubin AST ALT Alkaline Phosphatase Lactate Dehydrogenase Troponin T C-Reactive Protein 15.80 H Total Protein Albumin Prealbumin Triglycerides Cholesterol LDL Cholesterol Direct HDL Cholesterol Urine pH Urine WBC (Auto) Urine Creatinine Urine Total Protein Fluid Total Protein Vancomycin Trough Rheumatoid Factor Complement C4 Miscellaneous Test Crossmatch 10/11/16 10/11/16 10/11/16 11:40 15:49 23:57 WBC RBC Hgb Hct MCV MCH MCHC RDW Plt Count Lymph % (Auto) [place] % (Auto) Lymph # [place] # Baso # Seg Neutrophils % Seg Neuts % (Manual) Lymphocytes % (Manual) Monocytes % (Manual) Eosinophils % (Manual) Basophils % (Manual) Nucleated RBC % Seg Neutrophils # Seg Neutrophils # Man Lymphocytes # (Manual) Monocytes # (Manual) Eosinophils # (Manual) Basophils # (Manual) PT INR Fibrinogen dRVVT Confirm Interp Factor V Activity POC ABG pH POC ABG pCO2 POC ABG pO2 ABG pO2 ABG HCO3 ABG Base Excess ABG Hemoglobin Oxyhemoglobin Sodium Potassium Chloride Carbon Dioxide BUN Creatinine Glucose POC Glucose 139 H 168 H 161 H Lactic Acid Calcium Phosphorus Magnesium Direct Bilirubin AST ALT Alkaline Phosphatase Lactate Dehydrogenase Troponin T C-Reactive Protein Total Protein Albumin Prealbumin Triglycerides Cholesterol LDL Cholesterol Direct HDL Cholesterol Urine pH Urine WBC (Auto) Urine Creatinine Urine Total Protein Fluid Total Protein Vancomycin Trough Rheumatoid Factor Complement C4 Miscellaneous Test Crossmatch 10/12/16 10/12/16 10/12/16 04:40 04:40 05:44 WBC 22.5 H RBC 2.88 L Hgb 8.8 L Hct 26.8 L MCV MCH MCHC RDW 17.8 H Plt Count Lymph % (Auto) [place] % (Auto) Lymph # [place] # Baso # Seg Neutrophils % Seg Neuts % (Manual) Lymphocytes % (Manual) Monocytes % (Manual) Eosinophils % (Manual) Basophils % (Manual) Nucleated RBC % Seg Neutrophils # Seg Neutrophils # Man Lymphocytes # (Manual) Monocytes # (Manual) Eosinophils # (Manual) Basophils # (Manual) PT INR Fibrinogen dRVVT Confirm Interp Factor V Activity POC ABG pH POC ABG pCO2 POC ABG pO2 ABG pO2 ABG HCO3 ABG Base Excess ABG Hemoglobin Oxyhemoglobin Sodium 134 L Potassium Chloride 93.0 L Carbon Dioxide BUN 74 H Creatinine 2.5 H Glucose 137 H POC Glucose 158 H Lactic Acid Calcium 8.2 L Phosphorus Magnesium Direct Bilirubin AST ALT Alkaline Phosphatase Lactate Dehydrogenase Troponin T C-Reactive Protein Total Protein Albumin Prealbumin Triglycerides Cholesterol LDL Cholesterol Direct HDL Cholesterol Urine pH Urine WBC (Auto) Urine Creatinine Urine Total Protein Fluid Total Protein Vancomycin Trough Rheumatoid Factor Complement C4 Miscellaneous Test Crossmatch 10/12/16 10/12/16 10/12/16 12:27 18:18 23:46 WBC RBC Hgb Hct MCV MCH MCHC RDW Plt Count Lymph % (Auto) [place] % (Auto) Lymph # [place] # Baso # Seg Neutrophils % Seg Neuts % (Manual) Lymphocytes % (Manual) Monocytes % (Manual) Eosinophils % (Manual) Basophils % (Manual) Nucleated RBC % Seg Neutrophils # Seg Neutrophils # Man Lymphocytes # (Manual) Monocytes # (Manual) Eosinophils # (Manual) Basophils # (Manual) PT INR Fibrinogen dRVVT Confirm Interp Factor V Activity POC ABG pH POC ABG pCO2 POC ABG pO2 ABG pO2 ABG HCO3 ABG Base Excess ABG Hemoglobin Oxyhemoglobin Sodium Potassium Chloride Carbon Dioxide BUN Creatinine Glucose POC Glucose 153 H 140 H 150 H Lactic Acid Calcium Phosphorus Magnesium Direct Bilirubin AST ALT Alkaline Phosphatase Lactate Dehydrogenase Troponin T C-Reactive Protein Total Protein Albumin Prealbumin Triglycerides Cholesterol LDL Cholesterol Direct HDL Cholesterol Urine pH Urine WBC (Auto) Urine Creatinine Urine Total Protein Fluid Total Protein Vancomycin Trough Rheumatoid Factor Complement C4 Miscellaneous Test Crossmatch 10/13/16 10/13/16 10/13/16 06:22 09:20 12:29 WBC RBC Hgb Hct MCV MCH MCHC RDW Plt Count Lymph % (Auto) [place] % (Auto) Lymph # [place] # Baso # Seg Neutrophils % Seg Neuts % (Manual) Lymphocytes % (Manual) Monocytes % (Manual) Eosinophils % (Manual) Basophils % (Manual) Nucleated RBC % Seg Neutrophils # Seg Neutrophils # Man Lymphocytes # (Manual) Monocytes # (Manual) Eosinophils # (Manual) Basophils # (Manual) PT INR Fibrinogen dRVVT Confirm Interp Factor V Activity POC ABG pH POC ABG pCO2 POC ABG pO2 ABG pO2 ABG HCO3 ABG Base Excess ABG Hemoglobin Oxyhemoglobin Sodium Potassium Chloride Carbon Dioxide BUN Creatinine Glucose POC Glucose 165 H 193 H Lactic Acid Calcium Phosphorus Magnesium Direct Bilirubin AST ALT Alkaline Phosphatase Lactate Dehydrogenase Troponin T C-Reactive Protein Total Protein Albumin Prealbumin Triglycerides Cholesterol LDL Cholesterol Direct HDL Cholesterol Urine pH Urine WBC (Auto) Urine Creatinine Urine Total Protein Fluid Total Protein Vancomycin Trough Rheumatoid Factor Complement C4 Miscellaneous Test Flexitest 1 H Crossmatch 10/13/16 10/13/16 10/13/16 18:09 Unknown Unknown WBC 23.4 H RBC 2.83 L Hgb 8.7 L Hct 26.1 L MCV MCH MCHC RDW 18.1 H Plt Count Lymph % (Auto) [place] % (Auto) Lymph # [place] # Baso # Seg Neutrophils % Seg Neuts % (Manual) Lymphocytes % (Manual) Monocytes % (Manual) Eosinophils % (Manual) Basophils % (Manual) Nucleated RBC % Seg Neutrophils # Seg Neutrophils # Man Lymphocytes # (Manual) Monocytes # (Manual) Eosinophils # (Manual) Basophils # (Manual) PT INR Fibrinogen dRVVT Confirm Interp Factor V Activity POC ABG pH POC ABG pCO2 POC ABG pO2 ABG pO2 ABG HCO3 ABG Base Excess ABG Hemoglobin Oxyhemoglobin Sodium Potassium Chloride 95.8 L Carbon Dioxide BUN 82 H Creatinine 2.6 H Glucose 152 H POC Glucose 166 H Lactic Acid Calcium Phosphorus Magnesium Direct Bilirubin AST ALT Alkaline Phosphatase Lactate Dehydrogenase Troponin T C-Reactive Protein Total Protein Albumin Prealbumin Triglycerides Cholesterol LDL Cholesterol Direct HDL Cholesterol Urine pH Urine WBC (Auto) Urine Creatinine Urine Total Protein Fluid Total Protein Vancomycin Trough Rheumatoid Factor Complement C4 Miscellaneous Test Crossmatch 10/14/16 10/14/16 10/14/16 05:38 06:35 08:10 WBC 20.7 H RBC 2.81 L Hgb 8.4 L Hct 27.2 L MCV MCH MCHC RDW 19.4 H Plt Count Lymph % (Auto) [place] % (Auto) Lymph # [place] # Baso # Seg Neutrophils % Seg Neuts % (Manual) Lymphocytes % (Manual) Monocytes % (Manual) Eosinophils % (Manual) Basophils % (Manual) Nucleated RBC % Seg Neutrophils # Seg Neutrophils # Man Lymphocytes # (Manual) Monocytes # (Manual) Eosinophils # (Manual) Basophils # (Manual) PT INR Fibrinogen dRVVT Confirm Interp Factor V Activity POC ABG pH POC ABG pCO2 POC ABG pO2 ABG pO2 ABG HCO3 ABG Base Excess ABG Hemoglobin Oxyhemoglobin Sodium Potassium Chloride Carbon Dioxide BUN 58 H Creatinine 1.9 H Glucose 169 H POC Glucose 195 H Lactic Acid Calcium Phosphorus Magnesium Direct Bilirubin AST ALT Alkaline Phosphatase Lactate Dehydrogenase Troponin T C-Reactive Protein Total Protein Albumin Prealbumin Triglycerides Cholesterol LDL Cholesterol Direct HDL Cholesterol Urine pH Urine WBC (Auto) Urine Creatinine Urine Total Protein Fluid Total Protein Vancomycin Trough Rheumatoid Factor Complement C4 Miscellaneous Test Crossmatch 10/14/16 10/14/16 10/14/16 11:44 17:13 23:28 WBC RBC Hgb Hct MCV MCH MCHC RDW Plt Count Lymph % (Auto) [place] % (Auto) Lymph # [place] # Baso # Seg Neutrophils % Seg Neuts % (Manual) Lymphocytes % (Manual) Monocytes % (Manual) Eosinophils % (Manual) Basophils % (Manual) Nucleated RBC % Seg Neutrophils # Seg Neutrophils # Man Lymphocytes # (Manual) Monocytes # (Manual) Eosinophils # (Manual) Basophils # (Manual) PT INR Fibrinogen dRVVT Confirm Interp Factor V Activity POC ABG pH POC ABG pCO2 POC ABG pO2 ABG pO2 ABG HCO3 ABG Base Excess ABG Hemoglobin Oxyhemoglobin Sodium Potassium Chloride Carbon Dioxide BUN Creatinine Glucose POC Glucose 174 H 121 H 151 H Lactic Acid Calcium Phosphorus Magnesium Direct Bilirubin AST ALT Alkaline Phosphatase Lactate Dehydrogenase Troponin T C-Reactive Protein Total Protein Albumin Prealbumin Triglycerides Cholesterol LDL Cholesterol Direct HDL Cholesterol Urine pH Urine WBC (Auto) Urine Creatinine Urine Total Protein Fluid Total Protein Vancomycin Trough Rheumatoid Factor Complement C4 Miscellaneous Test Crossmatch 10/15/16 10/15/16 10/15/16 05:06 12:26 17:48 WBC RBC Hgb Hct MCV MCH MCHC RDW Plt Count Lymph % (Auto) [place] % (Auto) Lymph # [place] # Baso # Seg Neutrophils % Seg Neuts % (Manual) Lymphocytes % (Manual) Monocytes % (Manual) Eosinophils % (Manual) Basophils % (Manual) Nucleated RBC % Seg Neutrophils # Seg Neutrophils # Man Lymphocytes # (Manual) Monocytes # (Manual) Eosinophils # (Manual) Basophils # (Manual) PT INR Fibrinogen dRVVT Confirm Interp Factor V Activity POC ABG pH POC ABG pCO2 POC ABG pO2 ABG pO2 ABG HCO3 ABG Base Excess ABG Hemoglobin Oxyhemoglobin Sodium Potassium Chloride Carbon Dioxide BUN Creatinine Glucose POC Glucose 151 H 149 H 153 H Lactic Acid Calcium Phosphorus Magnesium Direct Bilirubin AST ALT Alkaline Phosphatase Lactate Dehydrogenase Troponin T C-Reactive Protein Total Protein Albumin Prealbumin Triglycerides Cholesterol LDL Cholesterol Direct HDL Cholesterol Urine pH Urine WBC (Auto) Urine Creatinine Urine Total Protein Fluid Total Protein Vancomycin Trough Rheumatoid Factor Complement C4 Miscellaneous Test Crossmatch 10/15/16 10/15/16 10/16/16 Unknown Unknown 00:02 WBC 23.4 H RBC 2.78 L Hgb 8.5 L Hct 25.7 L MCV MCH MCHC RDW 18.7 H Plt Count Lymph % (Auto) [place] % (Auto) Lymph # [place] # Baso # Seg Neutrophils % Seg Neuts % (Manual) Lymphocytes % (Manual) Monocytes % (Manual) Eosinophils % (Manual) Basophils % (Manual) Nucleated RBC % Seg Neutrophils # Seg Neutrophils # Man Lymphocytes # (Manual) Monocytes # (Manual) Eosinophils # (Manual) Basophils # (Manual) PT INR Fibrinogen dRVVT Confirm Interp Factor V Activity POC ABG pH POC ABG pCO2 POC ABG pO2 ABG pO2 ABG HCO3 ABG Base Excess ABG Hemoglobin Oxyhemoglobin Sodium Potassium Chloride Carbon Dioxide BUN 73 H Creatinine 2.3 H Glucose 120 H POC Glucose 137 H Lactic Acid Calcium Phosphorus Magnesium Direct Bilirubin AST ALT Alkaline Phosphatase Lactate Dehydrogenase Troponin T C-Reactive Protein Total Protein Albumin Prealbumin Triglycerides Cholesterol LDL Cholesterol Direct HDL Cholesterol Urine pH Urine WBC (Auto) Urine Creatinine Urine Total Protein Fluid Total Protein Vancomycin Trough Rheumatoid Factor Complement C4 Miscellaneous Test Crossmatch 10/16/16 10/16/16 10/16/16 05:44 06:25 06:25 WBC 22.5 H RBC 2.76 L Hgb 8.3 L Hct 25.2 L MCV MCH MCHC RDW 18.3 H Plt Count Lymph % (Auto) [place] % (Auto) Lymph # [place] # Baso # Seg Neutrophils % Seg Neuts % (Manual) Lymphocytes % (Manual) Monocytes % (Manual) Eosinophils % (Manual) Basophils % (Manual) Nucleated RBC % Seg Neutrophils # Seg Neutrophils # Man Lymphocytes # (Manual) Monocytes # (Manual) Eosinophils # (Manual) Basophils # (Manual) PT INR Fibrinogen dRVVT Confirm Interp Factor V Activity POC ABG pH POC ABG pCO2 POC ABG pO2 ABG pO2 ABG HCO3 ABG Base Excess ABG Hemoglobin Oxyhemoglobin Sodium Potassium Chloride Carbon Dioxide BUN 92 H Creatinine 3.0 H Glucose 138 H POC Glucose 110 H Lactic Acid Calcium Phosphorus Magnesium Direct Bilirubin AST ALT Alkaline Phosphatase Lactate Dehydrogenase Troponin T C-Reactive Protein Total Protein Albumin Prealbumin Triglycerides Cholesterol LDL Cholesterol Direct HDL Cholesterol Urine pH Urine WBC (Auto) Urine Creatinine Urine Total Protein Fluid Total Protein Vancomycin Trough Rheumatoid Factor Complement C4 Miscellaneous Test Crossmatch 10/16/16 10/16/16 10/16/16 11:27 11:48 17:36 WBC RBC Hgb Hct MCV MCH MCHC RDW Plt Count Lymph % (Auto) [place] % (Auto) Lymph # [place] # Baso # Seg Neutrophils % Seg Neuts % (Manual) Lymphocytes % (Manual) Monocytes % (Manual) Eosinophils % (Manual) Basophils % (Manual) Nucleated RBC % Seg Neutrophils # Seg Neutrophils # Man Lymphocytes # (Manual) Monocytes # (Manual) Eosinophils # (Manual) Basophils # (Manual) PT INR Fibrinogen dRVVT Confirm Interp Factor V Activity POC ABG pH 7.582 H POC ABG pCO2 27.4 L POC ABG pO2 110 H ABG pO2 ABG HCO3 ABG Base Excess ABG Hemoglobin Oxyhemoglobin Sodium Potassium Chloride Carbon Dioxide BUN Creatinine Glucose POC Glucose 121 H 133 H Lactic Acid Calcium Phosphorus Magnesium Direct Bilirubin AST ALT Alkaline Phosphatase Lactate Dehydrogenase Troponin T C-Reactive Protein Total Protein Albumin Prealbumin Triglycerides Cholesterol LDL Cholesterol Direct HDL Cholesterol Urine pH Urine WBC (Auto) Urine Creatinine Urine Total Protein Fluid Total Protein Vancomycin Trough Rheumatoid Factor Complement C4 Miscellaneous Test Crossmatch 10/16/16 10/17/16 10/17/16 20:48 04:24 04:24 WBC 21.4 H RBC 2.72 L Hgb 8.0 L Hct 25.2 L MCV MCH MCHC RDW 18.0 H Plt Count Lymph % (Auto) [place] % (Auto) Lymph # [place] # Baso # Seg Neutrophils % Seg Neuts % (Manual) Lymphocytes % (Manual) Monocytes % (Manual) Eosinophils % (Manual) Basophils % (Manual) Nucleated RBC % Seg Neutrophils # Seg Neutrophils # Man Lymphocytes # (Manual) Monocytes # (Manual) Eosinophils # (Manual) Basophils # (Manual) PT INR Fibrinogen dRVVT Confirm Interp Factor V Activity POC ABG pH 7.561 H POC ABG pCO2 24.4 L POC ABG pO2 77 L ABG pO2 ABG HCO3 ABG Base Excess ABG Hemoglobin Oxyhemoglobin Sodium 148 H Potassium Chloride Carbon Dioxide BUN 104 H Creatinine 3.0 H Glucose 149 H POC Glucose Lactic Acid Calcium Phosphorus Magnesium Direct Bilirubin AST ALT Alkaline Phosphatase 138 H Lactate Dehydrogenase Troponin T C-Reactive Protein Total Protein 6.2 L Albumin 1.5 L Prealbumin Triglycerides Cholesterol LDL Cholesterol Direct HDL Cholesterol Urine pH Urine WBC (Auto) Urine Creatinine Urine Total Protein Fluid Total Protein Vancomycin Trough Rheumatoid Factor Complement C4 Miscellaneous Test Crossmatch 10/17/16 10/17/16 10/17/16 06:02 12:17 17:14 WBC RBC Hgb Hct MCV MCH MCHC RDW Plt Count Lymph % (Auto) [place] % (Auto) Lymph # [place] # Baso # Seg Neutrophils % Seg Neuts % (Manual) Lymphocytes % (Manual) Monocytes % (Manual) Eosinophils % (Manual) Basophils % (Manual) Nucleated RBC % Seg Neutrophils # Seg Neutrophils # Man Lymphocytes # (Manual) Monocytes # (Manual) Eosinophils # (Manual) Basophils # (Manual) PT INR Fibrinogen dRVVT Confirm Interp Factor V Activity POC ABG pH POC ABG pCO2 POC ABG pO2 ABG pO2 ABG HCO3 ABG Base Excess ABG Hemoglobin Oxyhemoglobin Sodium Potassium Chloride Carbon Dioxide BUN Creatinine Glucose POC Glucose 170 H 167 H 126 H Lactic Acid Calcium Phosphorus Magnesium Direct Bilirubin AST ALT Alkaline Phosphatase Lactate Dehydrogenase Troponin T C-Reactive Protein Total Protein Albumin Prealbumin Triglycerides Cholesterol LDL Cholesterol Direct HDL Cholesterol Urine pH Urine WBC (Auto) Urine Creatinine Urine Total Protein Fluid Total Protein Vancomycin Trough Rheumatoid Factor Complement C4 Miscellaneous Test Crossmatch 10/17/16 10/18/16 10/18/16 23:17 04:00 04:00 WBC 20.7 H RBC 2.47 L Hgb 7.4 L Hct 22.9 L MCV MCH MCHC RDW 17.5 H Plt Count Lymph % (Auto) [place] % (Auto) Lymph # [place] # Baso # Seg Neutrophils % Seg Neuts % (Manual) Lymphocytes % (Manual) Monocytes % (Manual) Eosinophils % (Manual) Basophils % (Manual) Nucleated RBC % Seg Neutrophils # Seg Neutrophils # Man Lymphocytes # (Manual) Monocytes # (Manual) Eosinophils # (Manual) Basophils # (Manual) PT INR Fibrinogen dRVVT Confirm Interp Factor V Activity POC ABG pH POC ABG pCO2 POC ABG pO2 ABG pO2 ABG HCO3 ABG Base Excess ABG Hemoglobin Oxyhemoglobin Sodium 149 H Potassium Chloride 107.9 H Carbon Dioxide 20 L BUN 117 H Creatinine 3.2 H Glucose 119 H POC Glucose 121 H Lactic Acid Calcium Phosphorus Magnesium Direct Bilirubin AST ALT Alkaline Phosphatase Lactate Dehydrogenase Troponin T C-Reactive Protein Total Protein Albumin Prealbumin Triglycerides Cholesterol LDL Cholesterol Direct HDL Cholesterol Urine pH Urine WBC (Auto) Urine Creatinine Urine Total Protein Fluid Total Protein Vancomycin Trough Rheumatoid Factor Complement C4 Miscellaneous Test Crossmatch 10/18/16 10/18/16 10/18/16 05:23 10:46 17:30 WBC RBC Hgb Hct MCV MCH MCHC RDW Plt Count Lymph % (Auto) [place] % (Auto) Lymph # [place] # Baso # Seg Neutrophils % Seg Neuts % (Manual) Lymphocytes % (Manual) Monocytes % (Manual) Eosinophils % (Manual) Basophils % (Manual) Nucleated RBC % Seg Neutrophils # Seg Neutrophils # Man Lymphocytes # (Manual) Monocytes # (Manual) Eosinophils # (Manual) Basophils # (Manual) PT INR Fibrinogen dRVVT Confirm Interp Factor V Activity POC ABG pH POC ABG pCO2 POC ABG pO2 ABG pO2 ABG HCO3 ABG Base Excess ABG Hemoglobin Oxyhemoglobin Sodium Potassium Chloride Carbon Dioxide BUN Creatinine Glucose POC Glucose 119 H 155 H 124 H Lactic Acid Calcium Phosphorus Magnesium Direct Bilirubin AST ALT Alkaline Phosphatase Lactate Dehydrogenase Troponin T C-Reactive Protein Total Protein Albumin Prealbumin Triglycerides Cholesterol LDL Cholesterol Direct HDL Cholesterol Urine pH Urine WBC (Auto) Urine Creatinine Urine Total Protein Fluid Total Protein Vancomycin Trough Rheumatoid Factor Complement C4 Miscellaneous Test Crossmatch 10/19/16 10/19/16 10/19/16 04:00 04:00 05:25 WBC 17.4 H RBC 2.54 L Hgb 7.7 L Hct 23.6 L MCV MCH MCHC RDW 17.3 H Plt Count Lymph % (Auto) [place] % (Auto) Lymph # [place] # Baso # Seg Neutrophils % Seg Neuts % (Manual) Lymphocytes % (Manual) Monocytes % (Manual) Eosinophils % (Manual) Basophils % (Manual) Nucleated RBC % Seg Neutrophils # Seg Neutrophils # Man Lymphocytes # (Manual) Monocytes # (Manual) Eosinophils # (Manual) Basophils # (Manual) PT INR Fibrinogen dRVVT Confirm Interp Factor V Activity POC ABG pH POC ABG pCO2 POC ABG pO2 ABG pO2 ABG HCO3 ABG Base Excess ABG Hemoglobin Oxyhemoglobin Sodium Potassium Chloride Carbon Dioxide BUN 72 H Creatinine 2.1 H Glucose 116 H POC Glucose 119 H Lactic Acid Calcium Phosphorus Magnesium Direct Bilirubin AST ALT Alkaline Phosphatase Lactate Dehydrogenase Troponin T C-Reactive Protein Total Protein Albumin Prealbumin Triglycerides Cholesterol LDL Cholesterol Direct HDL Cholesterol Urine pH Urine WBC (Auto) Urine Creatinine Urine Total Protein Fluid Total Protein Vancomycin Trough Rheumatoid Factor Complement C4 Miscellaneous Test Crossmatch 10/19/16 10/19/16 10/20/16 11:46 23:59 06:00 WBC RBC Hgb Hct MCV MCH MCHC RDW Plt Count Lymph % (Auto) [place] % (Auto) Lymph # [place] # Baso # Seg Neutrophils % Seg Neuts % (Manual) Lymphocytes % (Manual) Monocytes % (Manual) Eosinophils % (Manual) Basophils % (Manual) Nucleated RBC % Seg Neutrophils # Seg Neutrophils # Man Lymphocytes # (Manual) Monocytes # (Manual) Eosinophils # (Manual) Basophils # (Manual) PT INR Fibrinogen dRVVT Confirm Interp Factor V Activity POC ABG pH POC ABG pCO2 POC ABG pO2 ABG pO2 ABG HCO3 ABG Base Excess ABG Hemoglobin Oxyhemoglobin Sodium Potassium Chloride Carbon Dioxide 17 L BUN 94 H Creatinine 2.7 H Glucose POC Glucose 116 H 117 H Lactic Acid Calcium Phosphorus Magnesium Direct Bilirubin AST ALT Alkaline Phosphatase Lactate Dehydrogenase Troponin T C-Reactive Protein Total Protein Albumin Prealbumin Triglycerides Cholesterol LDL Cholesterol Direct HDL Cholesterol Urine pH Urine WBC (Auto) Urine Creatinine Urine Total Protein Fluid Total Protein Vancomycin Trough Rheumatoid Factor Complement C4 Miscellaneous Test Crossmatch 10/20/16 10/20/16 10/20/16 06:00 11:49 16:00 WBC 19.7 H RBC 2.51 L Hgb 7.7 L Hct 23.5 L MCV MCH MCHC RDW 17.5 H Plt Count Lymph % (Auto) [place] % (Auto) Lymph # [place] # Baso # Seg Neutrophils % Seg Neuts % (Manual) Lymphocytes % (Manual) Monocytes % (Manual) Eosinophils % (Manual) Basophils % (Manual) Nucleated RBC % Seg Neutrophils # Seg Neutrophils # Man Lymphocytes # (Manual) Monocytes # (Manual) Eosinophils # (Manual) Basophils # (Manual) PT INR Fibrinogen dRVVT Confirm Interp Factor V Activity POC ABG pH POC ABG pCO2 POC ABG pO2 ABG pO2 ABG HCO3 ABG Base Excess ABG Hemoglobin Oxyhemoglobin Sodium Potassium Chloride Carbon Dioxide BUN Creatinine Glucose POC Glucose 117 H Lactic Acid Calcium Phosphorus Magnesium Direct Bilirubin AST ALT Alkaline Phosphatase Lactate Dehydrogenase Troponin T C-Reactive Protein Total Protein Albumin Prealbumin Triglycerides Cholesterol LDL Cholesterol Direct HDL Cholesterol Urine pH Urine WBC (Auto) Urine Creatinine Urine Total Protein Fluid Total Protein Vancomycin Trough Rheumatoid Factor Complement C4 Miscellaneous Test Flexitest 1 H Crossmatch 10/20/16 10/20/16 10/21/16 18:36 23:39 04:00 WBC RBC Hgb Hct MCV MCH MCHC RDW Plt Count Lymph % (Auto) [place] % (Auto) Lymph # [place] # Baso # Seg Neutrophils % Seg Neuts % (Manual) Lymphocytes % (Manual) Monocytes % (Manual) Eosinophils % (Manual) Basophils % (Manual) Nucleated RBC % Seg Neutrophils # Seg Neutrophils # Man Lymphocytes # (Manual) Monocytes # (Manual) Eosinophils # (Manual) Basophils # (Manual) PT INR Fibrinogen dRVVT Confirm Interp Factor V Activity POC ABG pH POC ABG pCO2 POC ABG pO2 ABG pO2 ABG HCO3 ABG Base Excess ABG Hemoglobin Oxyhemoglobin Sodium Potassium 5.4 H D Chloride Carbon Dioxide 15 L BUN 110 H Creatinine 3.0 H Glucose POC Glucose 127 H 114 H Lactic Acid Calcium Phosphorus Magnesium Direct Bilirubin AST ALT Alkaline Phosphatase Lactate Dehydrogenase Troponin T C-Reactive Protein Total Protein Albumin Prealbumin Triglycerides Cholesterol LDL Cholesterol Direct HDL Cholesterol Urine pH Urine WBC (Auto) Urine Creatinine Urine Total Protein Fluid Total Protein Vancomycin Trough Rheumatoid Factor Complement C4 Miscellaneous Test Crossmatch 10/21/16 10/21/16 10/22/16 05:54 23:46 05:18 WBC RBC Hgb Hct MCV MCH MCHC RDW Plt Count Lymph % (Auto) [place] % (Auto) Lymph # [place] # Baso # Seg Neutrophils % Seg Neuts % (Manual) Lymphocytes % (Manual) Monocytes % (Manual) Eosinophils % (Manual) Basophils % (Manual) Nucleated RBC % Seg Neutrophils # Seg Neutrophils # Man Lymphocytes # (Manual) Monocytes # (Manual) Eosinophils # (Manual) Basophils # (Manual) PT INR Fibrinogen dRVVT Confirm Interp Factor V Activity POC ABG pH POC ABG pCO2 POC ABG pO2 ABG pO2 ABG HCO3 ABG Base Excess ABG Hemoglobin Oxyhemoglobin Sodium Potassium Chloride Carbon Dioxide BUN Creatinine Glucose POC Glucose 119 H 108 H 109 H Lactic Acid Calcium Phosphorus Magnesium Direct Bilirubin AST ALT Alkaline Phosphatase Lactate Dehydrogenase Troponin T C-Reactive Protein Total Protein Albumin Prealbumin Triglycerides Cholesterol LDL Cholesterol Direct HDL Cholesterol Urine pH Urine WBC (Auto) Urine Creatinine Urine Total Protein Fluid Total Protein Vancomycin Trough Rheumatoid Factor Complement C4 Miscellaneous Test Crossmatch 10/22/16 10/22/16 10/22/16 06:40 06:40 06:40 WBC 14.0 H RBC 2.03 L Hgb 7.0 L Hct 20.5 L MCV 98 H MCH 34 H MCHC 35 H RDW 17.8 H Plt Count Lymph % (Auto) [place] % (Auto) 9.9 H Lymph # [place] # 1.4 H Baso # 0.2 H Seg Neutrophils % 72.0 H Seg Neuts % (Manual) Lymphocytes % (Manual) Monocytes % (Manual) Eosinophils % (Manual) Basophils % (Manual) Nucleated RBC % Seg Neutrophils # 10.0 H Seg Neutrophils # Man Lymphocytes # (Manual) Monocytes # (Manual) Eosinophils # (Manual) Basophils # (Manual) PT INR Fibrinogen dRVVT Confirm Interp Factor V Activity POC ABG pH POC ABG pCO2 POC ABG pO2 ABG pO2 ABG HCO3 ABG Base Excess ABG Hemoglobin Oxyhemoglobin Sodium 130 L D Potassium Chloride 92.4 L Carbon Dioxide 20 L BUN 50 H Creatinine 1.6 H Glucose 589 H* POC Glucose Lactic Acid Calcium 7.8 L D Phosphorus Magnesium 1.60 L Direct Bilirubin AST ALT Alkaline Phosphatase Lactate Dehydrogenase Troponin T C-Reactive Protein Total Protein Albumin Prealbumin Triglycerides Cholesterol LDL Cholesterol Direct HDL Cholesterol Urine pH Urine WBC (Auto) Urine Creatinine Urine Total Protein Fluid Total Protein Vancomycin Trough Rheumatoid Factor Complement C4 Miscellaneous Test Crossmatch 10/22/16 10/22/16 10/22/16 11:39 16:44 23:36 WBC RBC Hgb Hct MCV MCH MCHC RDW Plt Count Lymph % (Auto) [place] % (Auto) Lymph # [place] # Baso # Seg Neutrophils % Seg Neuts % (Manual) Lymphocytes % (Manual) Monocytes % (Manual) Eosinophils % (Manual) Basophils % (Manual) Nucleated RBC % Seg Neutrophils # Seg Neutrophils # Man Lymphocytes # (Manual) Monocytes # (Manual) Eosinophils # (Manual) Basophils # (Manual) PT INR Fibrinogen dRVVT Confirm Interp Factor V Activity POC ABG pH POC ABG pCO2 POC ABG pO2 ABG pO2 ABG HCO3 ABG Base Excess ABG Hemoglobin Oxyhemoglobin Sodium Potassium Chloride Carbon Dioxide BUN Creatinine Glucose POC Glucose 142 H 163 H 123 H Lactic Acid Calcium Phosphorus Magnesium Direct Bilirubin AST ALT Alkaline Phosphatase Lactate Dehydrogenase Troponin T C-Reactive Protein Total Protein Albumin Prealbumin Triglycerides Cholesterol LDL Cholesterol Direct HDL Cholesterol Urine pH Urine WBC (Auto) Urine Creatinine Urine Total Protein Fluid Total Protein Vancomycin Trough Rheumatoid Factor Complement C4 Miscellaneous Test Crossmatch 10/23/16 10/23/16 10/23/16 04:58 06:00 12:12 WBC RBC Hgb Hct MCV MCH MCHC RDW Plt Count Lymph % (Auto) [place] % (Auto) Lymph # [place] # Baso # Seg Neutrophils % Seg Neuts % (Manual) Lymphocytes % (Manual) Monocytes % (Manual) Eosinophils % (Manual) Basophils % (Manual) Nucleated RBC % Seg Neutrophils # Seg Neutrophils # Man Lymphocytes # (Manual) Monocytes # (Manual) Eosinophils # (Manual) Basophils # (Manual) PT INR Fibrinogen dRVVT Confirm Interp Factor V Activity POC ABG pH POC ABG pCO2 POC ABG pO2 ABG pO2 ABG HCO3 ABG Base Excess ABG Hemoglobin Oxyhemoglobin Sodium 133 L Potassium 3.5 L Chloride 96.1 L Carbon Dioxide 18 L BUN 76 H Creatinine 2.1 H Glucose POC Glucose 133 H 138 H Lactic Acid Calcium 8.3 L Phosphorus Magnesium Direct Bilirubin AST ALT Alkaline Phosphatase Lactate Dehydrogenase Troponin T C-Reactive Protein Total Protein Albumin Prealbumin Triglycerides Cholesterol LDL Cholesterol Direct HDL Cholesterol Urine pH Urine WBC (Auto) Urine Creatinine Urine Total Protein Fluid Total Protein Vancomycin Trough Rheumatoid Factor Complement C4 Miscellaneous Test Crossmatch 10/23/16 10/23/16 10/24/16 16:53 23:37 04:00 WBC RBC Hgb Hct MCV MCH MCHC RDW Plt Count Lymph % (Auto) [place] % (Auto) Lymph # [place] # Baso # Seg Neutrophils % Seg Neuts % (Manual) Lymphocytes % (Manual) Monocytes % (Manual) Eosinophils % (Manual) Basophils % (Manual) Nucleated RBC % Seg Neutrophils # Seg Neutrophils # Man Lymphocytes # (Manual) Monocytes # (Manual) Eosinophils # (Manual) Basophils # (Manual) PT INR Fibrinogen dRVVT Confirm Interp Factor V Activity POC ABG pH POC ABG pCO2 POC ABG pO2 ABG pO2 ABG HCO3 ABG Base Excess ABG Hemoglobin Oxyhemoglobin Sodium 131 L Potassium Chloride 94.5 L Carbon Dioxide 19 L BUN 97 H Creatinine 2.6 H Glucose 110 H POC Glucose 125 H 123 H Lactic Acid Calcium 8.3 L Phosphorus Magnesium Direct Bilirubin AST ALT Alkaline Phosphatase Lactate Dehydrogenase Troponin T C-Reactive Protein Total Protein Albumin Prealbumin Triglycerides Cholesterol LDL Cholesterol Direct HDL Cholesterol Urine pH Urine WBC (Auto) Urine Creatinine Urine Total Protein Fluid Total Protein Vancomycin Trough Rheumatoid Factor Complement C4 Miscellaneous Test Crossmatch 10/24/16 10/24/16 10/24/16 07:49 11:39 17:52 WBC RBC Hgb 6.0 L Hct 19.7 L* MCV MCH MCHC RDW Plt Count Lymph % (Auto) [place] % (Auto) Lymph # [place] # Baso # Seg Neutrophils % Seg Neuts % (Manual) Lymphocytes % (Manual) Monocytes % (Manual) Eosinophils % (Manual) Basophils % (Manual) Nucleated RBC % Seg Neutrophils # Seg Neutrophils # Man Lymphocytes # (Manual) Monocytes # (Manual) Eosinophils # (Manual) Basophils # (Manual) PT INR Fibrinogen dRVVT Confirm Interp Factor V Activity POC ABG pH POC ABG pCO2 POC ABG pO2 ABG pO2 ABG HCO3 ABG Base Excess ABG Hemoglobin Oxyhemoglobin Sodium Potassium Chloride Carbon Dioxide BUN Creatinine Glucose POC Glucose 106 H 158 H Lactic Acid Calcium Phosphorus Magnesium Direct Bilirubin AST ALT Alkaline Phosphatase Lactate Dehydrogenase Troponin T C-Reactive Protein Total Protein Albumin Prealbumin Triglycerides Cholesterol LDL Cholesterol Direct HDL Cholesterol Urine pH Urine WBC (Auto) Urine Creatinine Urine Total Protein Fluid Total Protein Vancomycin Trough Rheumatoid Factor Complement C4 Miscellaneous Test Crossmatch 10/24/16 10/24/1617 20:00 22:27 Unknown WBC RBC Hgb 9.4 L D Hct 27.5 L D MCV MCH MCHC RDW Plt Count Lymph % (Auto) [place] % (Auto) Lymph # [place] # Baso # Seg Neutrophils % Seg Neuts % (Manual) Lymphocytes % (Manual) Monocytes % (Manual) Eosinophils % (Manual) Basophils % (Manual) Nucleated RBC % Seg Neutrophils # Seg Neutrophils # Man Lymphocytes # (Manual) Monocytes # (Manual) Eosinophils # (Manual) Basophils # (Manual) PT INR Fibrinogen dRVVT Confirm Interp Factor V Activity POC ABG pH POC ABG pCO2 POC ABG pO2 ABG pO2 ABG HCO3 ABG Base Excess ABG Hemoglobin Oxyhemoglobin Sodium Potassium Chloride Carbon Dioxide BUN Creatinine Glucose POC Glucose 125 H Lactic Acid Calcium Phosphorus Magnesium Direct Bilirubin AST ALT Alkaline Phosphatase Lactate Dehydrogenase Troponin T C-Reactive Protein Total Protein Albumin Prealbumin Triglycerides Cholesterol LDL Cholesterol Direct HDL Cholesterol Urine pH Urine WBC (Auto) Urine Creatinine Urine Total Protein Fluid Total Protein Vancomycin Trough Rheumatoid Factor Complement C4 Miscellaneous Test Crossmatch See Detail 10/25/16 10/25/16 10/25/16 04:00 04:00 04:00 WBC 14.2 H RBC 2.98 L Hgb 9.0 L Hct 26.2 L MCV MCH MCHC RDW 16.6 H Plt Count Lymph % (Auto) [place] % (Auto) 10.7 H Lymph # [place] # 1.5 H Baso # Seg Neutrophils % 73.6 H Seg Neuts % (Manual) Lymphocytes % (Manual) Monocytes % (Manual) Eosinophils % (Manual) Basophils % (Manual) Nucleated RBC % Seg Neutrophils # 10.5 H Seg Neutrophils # Man Lymphocytes # (Manual) Monocytes # (Manual) Eosinophils # (Manual) Basophils # (Manual) PT INR Fibrinogen dRVVT Confirm Interp Factor V Activity POC ABG pH POC ABG pCO2 POC ABG pO2 ABG pO2 ABG HCO3 ABG Base Excess ABG Hemoglobin Oxyhemoglobin Sodium 132 L Potassium Chloride 94.7 L Carbon Dioxide BUN 51 H Creatinine 1.6 H Glucose 130 H POC Glucose Lactic Acid Calcium 8.3 L Phosphorus 1.60 L D Magnesium Direct Bilirubin AST ALT Alkaline Phosphatase Lactate Dehydrogenase Troponin T C-Reactive Protein Total Protein Albumin Prealbumin Triglycerides Cholesterol LDL Cholesterol Direct HDL Cholesterol Urine pH Urine WBC (Auto) Urine Creatinine Urine Total Protein Fluid Total Protein Vancomycin Trough Rheumatoid Factor Complement C4 Miscellaneous Test Crossmatch 10/25/16 10/25/16 10/25/16 04:32 11:48 17:22 WBC RBC Hgb Hct MCV MCH MCHC RDW Plt Count Lymph % (Auto) [place] % (Auto) Lymph # [place] # Baso # Seg Neutrophils % Seg Neuts % (Manual) Lymphocytes % (Manual) Monocytes % (Manual) Eosinophils % (Manual) Basophils % (Manual) Nucleated RBC % Seg Neutrophils # Seg Neutrophils # Man Lymphocytes # (Manual) Monocytes # (Manual) Eosinophils # (Manual) Basophils # (Manual) PT INR Fibrinogen dRVVT Confirm Interp Factor V Activity POC ABG pH POC ABG pCO2 POC ABG pO2 ABG pO2 ABG HCO3 ABG Base Excess ABG Hemoglobin Oxyhemoglobin Sodium Potassium Chloride Carbon Dioxide BUN Creatinine Glucose POC Glucose 124 H 171 H 120 H Lactic Acid Calcium Phosphorus Magnesium Direct Bilirubin AST ALT Alkaline Phosphatase Lactate Dehydrogenase Troponin T C-Reactive Protein Total Protein Albumin Prealbumin Triglycerides Cholesterol LDL Cholesterol Direct HDL Cholesterol Urine pH Urine WBC (Auto) Urine Creatinine Urine Total Protein Fluid Total Protein Vancomycin Trough Rheumatoid Factor Complement C4 Miscellaneous Test Crossmatch 10/26/16 10/26/16 10/26/16 04:54 07:06 07:06 WBC 16.9 H RBC 3.06 L Hgb 9.1 L Hct 26.9 L MCV MCH MCHC RDW 16.9 H Plt Count Lymph % (Auto) [place] % (Auto) Lymph # [place] # Baso # Seg Neutrophils % Seg Neuts % (Manual) 71.0 H Lymphocytes % (Manual) 5.0 L Monocytes % (Manual) 12.0 H Eosinophils % (Manual) Basophils % (Manual) Nucleated RBC % Seg Neutrophils # Seg Neutrophils # Man 12.0 H Lymphocytes # (Manual) 0.8 L Monocytes # (Manual) 2.0 H Eosinophils # (Manual) Basophils # (Manual) PT INR Fibrinogen dRVVT Confirm Interp Factor V Activity POC ABG pH POC ABG pCO2 POC ABG pO2 ABG pO2 ABG HCO3 ABG Base Excess ABG Hemoglobin Oxyhemoglobin Sodium 135 L Potassium Chloride 97.1 L Carbon Dioxide BUN 73 H Creatinine 2.2 H Glucose 117 H POC Glucose 123 H Lactic Acid Calcium Phosphorus 1.70 L Magnesium Direct Bilirubin AST ALT Alkaline Phosphatase Lactate Dehydrogenase Troponin T C-Reactive Protein Total Protein Albumin Prealbumin Triglycerides Cholesterol LDL Cholesterol Direct HDL Cholesterol Urine pH Urine WBC (Auto) Urine Creatinine Urine Total Protein Fluid Total Protein Vancomycin Trough Rheumatoid Factor Complement C4 Miscellaneous Test Crossmatch 10/26/16 10/26/16 10/26/16 12:12 17:29 23:42 WBC RBC Hgb Hct MCV MCH MCHC RDW Plt Count Lymph % (Auto) [place] % (Auto) Lymph # [place] # Baso # Seg Neutrophils % Seg Neuts % (Manual) Lymphocytes % (Manual) Monocytes % (Manual) Eosinophils % (Manual) Basophils % (Manual) Nucleated RBC % Seg Neutrophils # Seg Neutrophils # Man Lymphocytes # (Manual) Monocytes # (Manual) Eosinophils # (Manual) Basophils # (Manual) PT INR Fibrinogen dRVVT Confirm Interp Factor V Activity POC ABG pH POC ABG pCO2 POC ABG pO2 ABG pO2 ABG HCO3 ABG Base Excess ABG Hemoglobin Oxyhemoglobin Sodium Potassium Chloride Carbon Dioxide BUN Creatinine Glucose POC Glucose 126 H 161 H 118 H Lactic Acid Calcium Phosphorus Magnesium Direct Bilirubin AST ALT Alkaline Phosphatase Lactate Dehydrogenase Troponin T C-Reactive Protein Total Protein Albumin Prealbumin Triglycerides Cholesterol LDL Cholesterol Direct HDL Cholesterol Urine pH Urine WBC (Auto) Urine Creatinine Urine Total Protein Fluid Total Protein Vancomycin Trough Rheumatoid Factor Complement C4 Miscellaneous Test Crossmatch 10/27/16 10/27/16 10/27/16 05:03 06:30 06:30 WBC 13.9 H RBC 3.09 L Hgb 9.2 L Hct 27.5 L MCV MCH MCHC RDW 17.0 H Plt Count Lymph % (Auto) [place] % (Auto) Lymph # [place] # Baso # Seg Neutrophils % Seg Neuts % (Manual) 78.0 H Lymphocytes % (Manual) Monocytes % (Manual) Eosinophils % (Manual) Basophils % (Manual) Nucleated RBC % 2.0 H Seg Neutrophils # Seg Neutrophils # Man 10.8 H Lymphocytes # (Manual) Monocytes # (Manual) 1.0 H Eosinophils # (Manual) Basophils # (Manual) PT INR Fibrinogen dRVVT Confirm Interp Factor V Activity POC ABG pH POC ABG pCO2 POC ABG pO2 ABG pO2 ABG HCO3 ABG Base Excess ABG Hemoglobin Oxyhemoglobin Sodium Potassium Chloride Carbon Dioxide BUN 40 H Creatinine 1.5 H Glucose 135 H POC Glucose 107 H Lactic Acid Calcium 8.3 L Phosphorus 1.30 L D Magnesium Direct Bilirubin AST ALT Alkaline Phosphatase Lactate Dehydrogenase Troponin T C-Reactive Protein Total Protein Albumin Prealbumin Triglycerides Cholesterol LDL Cholesterol Direct HDL Cholesterol Urine pH Urine WBC (Auto) Urine Creatinine Urine Total Protein Fluid Total Protein Vancomycin Trough Rheumatoid Factor Complement C4 Miscellaneous Test Crossmatch 10/27/16 10/27/16 10/27/16 13:27 18:07 23:40 WBC RBC Hgb Hct MCV MCH MCHC RDW Plt Count Lymph % (Auto) [place] % (Auto) Lymph # [place] # Baso # Seg Neutrophils % Seg Neuts % (Manual) Lymphocytes % (Manual) Monocytes % (Manual) Eosinophils % (Manual) Basophils % (Manual) Nucleated RBC % Seg Neutrophils # Seg Neutrophils # Man Lymphocytes # (Manual) Monocytes # (Manual) Eosinophils # (Manual) Basophils # (Manual) PT INR Fibrinogen dRVVT Confirm Interp Factor V Activity POC ABG pH POC ABG pCO2 POC ABG pO2 ABG pO2 ABG HCO3 ABG Base Excess ABG Hemoglobin Oxyhemoglobin Sodium Potassium Chloride Carbon Dioxide BUN Creatinine Glucose POC Glucose 117 H 121 H 118 H Lactic Acid Calcium Phosphorus Magnesium Direct Bilirubin AST ALT Alkaline Phosphatase Lactate Dehydrogenase Troponin T C-Reactive Protein Total Protein Albumin Prealbumin Triglycerides Cholesterol LDL Cholesterol Direct HDL Cholesterol Urine pH Urine WBC (Auto) Urine Creatinine Urine Total Protein Fluid Total Protein Vancomycin Trough Rheumatoid Factor Complement C4 Miscellaneous Test Crossmatch 10/28/16 10/28/16 10/28/16 05:48 06:45 06:45 WBC 14.7 H RBC 3.05 L Hgb 9.0 L Hct 26.9 L MCV MCH MCHC RDW 16.8 H Plt Count Lymph % (Auto) 8.2 L [place] % (Auto) 8.4 H Lymph # [place] # 1.2 H Baso # Seg Neutrophils % 81.9 H Seg Neuts % (Manual) Lymphocytes % (Manual) Monocytes % (Manual) Eosinophils % (Manual) Basophils % (Manual) Nucleated RBC % Seg Neutrophils # 12.1 H Seg Neutrophils # Man Lymphocytes # (Manual) Monocytes # (Manual) Eosinophils # (Manual) Basophils # (Manual) PT INR Fibrinogen dRVVT Confirm Interp Factor V Activity POC ABG pH POC ABG pCO2 POC ABG pO2 ABG pO2 ABG HCO3 ABG Base Excess ABG Hemoglobin Oxyhemoglobin Sodium Potassium Chloride Carbon Dioxide BUN 60 H Creatinine 1.9 H Glucose 120 H POC Glucose 114 H Lactic Acid Calcium Phosphorus Magnesium Direct Bilirubin AST ALT Alkaline Phosphatase Lactate Dehydrogenase Troponin T C-Reactive Protein Total Protein Albumin Prealbumin Triglycerides Cholesterol LDL Cholesterol Direct HDL Cholesterol Urine pH Urine WBC (Auto) Urine Creatinine Urine Total Protein Fluid Total Protein Vancomycin Trough Rheumatoid Factor Complement C4 Miscellaneous Test Crossmatch 10/28/16 10/28/16 10/29/16 17:08 23:50 05:10 WBC RBC Hgb Hct MCV MCH MCHC RDW Plt Count Lymph % (Auto) [place] % (Auto) Lymph # [place] # Baso # Seg Neutrophils % Seg Neuts % (Manual) Lymphocytes % (Manual) Monocytes % (Manual) Eosinophils % (Manual) Basophils % (Manual) Nucleated RBC % Seg Neutrophils # Seg Neutrophils # Man Lymphocytes # (Manual) Monocytes # (Manual) Eosinophils # (Manual) Basophils # (Manual) PT INR Fibrinogen dRVVT Confirm Interp Factor V Activity POC ABG pH POC ABG pCO2 POC ABG pO2 ABG pO2 ABG HCO3 ABG Base Excess ABG Hemoglobin Oxyhemoglobin Sodium Potassium Chloride Carbon Dioxide BUN Creatinine Glucose POC Glucose 109 H 110 H 124 H Lactic Acid Calcium Phosphorus Magnesium Direct Bilirubin AST ALT Alkaline Phosphatase Lactate Dehydrogenase Troponin T C-Reactive Protein Total Protein Albumin Prealbumin Triglycerides Cholesterol LDL Cholesterol Direct HDL Cholesterol Urine pH Urine WBC (Auto) Urine Creatinine Urine Total Protein Fluid Total Protein Vancomycin Trough Rheumatoid Factor Complement C4 Miscellaneous Test Crossmatch 10/29/16 10/29/16 10/29/16 07:45 07:45 12:19 WBC 14.7 H RBC 3.15 L Hgb 9.3 L Hct 28.9 L MCV MCH MCHC RDW 17.0 H Plt Count Lymph % (Auto) 11.9 L [place] % (Auto) 8.6 H Lymph # [place] # 1.3 H Baso # Seg Neutrophils % 78.1 H Seg Neuts % (Manual) Lymphocytes % (Manual) Monocytes % (Manual) Eosinophils % (Manual) Basophils % (Manual) Nucleated RBC % Seg Neutrophils # 11.4 H Seg Neutrophils # Man Lymphocytes # (Manual) Monocytes # (Manual) Eosinophils # (Manual) Basophils # (Manual) PT INR Fibrinogen dRVVT Confirm Interp Factor V Activity POC ABG pH POC ABG pCO2 POC ABG pO2 ABG pO2 ABG HCO3 ABG Base Excess ABG Hemoglobin Oxyhemoglobin Sodium Potassium 5.1 H Chloride Carbon Dioxide 19 L BUN 78 H Creatinine 2.2 H Glucose 116 H POC Glucose 118 H Lactic Acid Calcium Phosphorus Magnesium Direct Bilirubin AST ALT Alkaline Phosphatase Lactate Dehydrogenase Troponin T C-Reactive Protein Total Protein Albumin Prealbumin Triglycerides Cholesterol LDL Cholesterol Direct HDL Cholesterol Urine pH Urine WBC (Auto) Urine Creatinine Urine Total Protein Fluid Total Protein Vancomycin Trough Rheumatoid Factor Complement C4 Miscellaneous Test Crossmatch 10/29/16 10/30/16 10/30/16 17:49 01:52 03:28 WBC RBC Hgb Hct MCV MCH MCHC RDW Plt Count Lymph % (Auto) [place] % (Auto) Lymph # [place] # Baso # Seg Neutrophils % Seg Neuts % (Manual) Lymphocytes % (Manual) Monocytes % (Manual) Eosinophils % (Manual) Basophils % (Manual) Nucleated RBC % Seg Neutrophils # Seg Neutrophils # Man Lymphocytes # (Manual) Monocytes # (Manual) Eosinophils # (Manual) Basophils # (Manual) PT INR Fibrinogen dRVVT Confirm Interp Factor V Activity POC ABG pH POC ABG pCO2 POC ABG pO2 ABG pO2 ABG HCO3 ABG Base Excess ABG Hemoglobin Oxyhemoglobin Sodium Potassium 5.4 H Chloride 97.5 L Carbon Dioxide 19 L BUN 90 H Creatinine 2.5 H Glucose POC Glucose 120 H 129 H Lactic Acid Calcium Phosphorus 5.20 H Magnesium Direct Bilirubin AST ALT Alkaline Phosphatase Lactate Dehydrogenase Troponin T C-Reactive Protein Total Protein Albumin Prealbumin Triglycerides Cholesterol LDL Cholesterol Direct HDL Cholesterol Urine pH Urine WBC (Auto) Urine Creatinine Urine Total Protein Fluid Total Protein Vancomycin Trough Rheumatoid Factor Complement C4 Miscellaneous Test Crossmatch 10/30/16 10/30/16 10/30/16 03:28 08:19 08:19 WBC 11.6 H 15.9 H RBC 2.75 L 2.82 L Hgb 7.9 L 8.3 L Hct 24.2 L 25.2 L MCV MCH MCHC RDW 16.7 H 17.2 H Plt Count Lymph % (Auto) [place] % (Auto) 9.8 H Lymph # [place] # 1.1 H Baso # Seg Neutrophils % 74.2 H Seg Neuts % (Manual) Lymphocytes % (Manual) Monocytes % (Manual) Eosinophils % (Manual) Basophils % (Manual) Nucleated RBC % Seg Neutrophils # 8.6 H Seg Neutrophils # Man Lymphocytes # (Manual) Monocytes # (Manual) Eosinophils # (Manual) Basophils # (Manual) PT INR Fibrinogen dRVVT Confirm Interp Factor V Activity POC ABG pH POC ABG pCO2 POC ABG pO2 ABG pO2 ABG HCO3 ABG Base Excess ABG Hemoglobin Oxyhemoglobin Sodium Potassium 5.3 H Chloride 97.4 L Carbon Dioxide 19 L BUN 93 H Creatinine 2.6 H Glucose POC Glucose Lactic Acid Calcium Phosphorus Magnesium Direct Bilirubin AST ALT Alkaline Phosphatase Lactate Dehydrogenase Troponin T C-Reactive Protein Total Protein Albumin Prealbumin Triglycerides Cholesterol LDL Cholesterol Direct HDL Cholesterol Urine pH Urine WBC (Auto) Urine Creatinine Urine Total Protein Fluid Total Protein Vancomycin Trough Rheumatoid Factor Complement C4 Miscellaneous Test Crossmatch 10/30/16 10/30/16 10/31/16 17:11 23:56 00:40 WBC RBC Hgb Hct MCV MCH MCHC RDW Plt Count Lymph % (Auto) [place] % (Auto) Lymph # [place] # Baso # Seg Neutrophils % Seg Neuts % (Manual) Lymphocytes % (Manual) Monocytes % (Manual) Eosinophils % (Manual) Basophils % (Manual) Nucleated RBC % Seg Neutrophils # Seg Neutrophils # Man Lymphocytes # (Manual) Monocytes # (Manual) Eosinophils # (Manual) Basophils # (Manual) PT INR Fibrinogen dRVVT Confirm Interp Factor V Activity POC ABG pH POC ABG pCO2 POC ABG pO2 ABG pO2 ABG HCO3 ABG Base Excess ABG Hemoglobin Oxyhemoglobin Sodium Potassium Chloride Carbon Dioxide BUN Creatinine Glucose POC Glucose 106 H 117 H 120 H Lactic Acid Calcium Phosphorus Magnesium Direct Bilirubin AST ALT Alkaline Phosphatase Lactate Dehydrogenase Troponin T C-Reactive Protein Total Protein Albumin Prealbumin Triglycerides Cholesterol LDL Cholesterol Direct HDL Cholesterol Urine pH Urine WBC (Auto) Urine Creatinine Urine Total Protein Fluid Total Protein Vancomycin Trough Rheumatoid Factor Complement C4 Miscellaneous Test Crossmatch 10/31/16 10/31/16 10/31/16 05:43 07:15 07:15 WBC 12.1 H RBC 2.63 L Hgb 7.7 L Hct 23.3 L MCV MCH MCHC RDW 16.7 H Plt Count Lymph % (Auto) 11.7 L [place] % (Auto) 7.7 H Lymph # [place] # 0.9 H Baso # Seg Neutrophils % 78.0 H Seg Neuts % (Manual) Lymphocytes % (Manual) Monocytes % (Manual) Eosinophils % (Manual) Basophils % (Manual) Nucleated RBC % Seg Neutrophils # 9.4 H Seg Neutrophils # Man Lymphocytes # (Manual) Monocytes # (Manual) Eosinophils # (Manual) Basophils # (Manual) PT INR Fibrinogen dRVVT Confirm Interp Factor V Activity POC ABG pH POC ABG pCO2 POC ABG pO2 ABG pO2 ABG HCO3 ABG Base Excess ABG Hemoglobin Oxyhemoglobin Sodium Potassium Chloride 96.4 L Carbon Dioxide 21 L BUN 99 H Creatinine 2.6 H Glucose 144 H POC Glucose 125 H Lactic Acid Calcium Phosphorus 4.80 H Magnesium Direct Bilirubin AST ALT Alkaline Phosphatase Lactate Dehydrogenase Troponin T C-Reactive Protein Total Protein Albumin Prealbumin Triglycerides Cholesterol LDL Cholesterol Direct HDL Cholesterol Urine pH Urine WBC (Auto) Urine Creatinine Urine Total Protein Fluid Total Protein Vancomycin Trough Rheumatoid Factor Complement C4 Miscellaneous Test Crossmatch 10/31/16 10/31/16 11/01/16 11:46 18:34 00:20 WBC RBC Hgb Hct MCV MCH MCHC RDW Plt Count Lymph % (Auto) [place] % (Auto) Lymph # [place] # Baso # Seg Neutrophils % Seg Neuts % (Manual) Lymphocytes % (Manual) Monocytes % (Manual) Eosinophils % (Manual) Basophils % (Manual) Nucleated RBC % Seg Neutrophils # Seg Neutrophils # Man Lymphocytes # (Manual) Monocytes # (Manual) Eosinophils # (Manual) Basophils # (Manual) PT INR Fibrinogen dRVVT Confirm Interp Factor V Activity POC ABG pH POC ABG pCO2 POC ABG pO2 ABG pO2 ABG HCO3 ABG Base Excess ABG Hemoglobin Oxyhemoglobin Sodium Potassium Chloride Carbon Dioxide BUN Creatinine Glucose POC Glucose 159 H 140 H 132 H Lactic Acid Calcium Phosphorus Magnesium Direct Bilirubin AST ALT Alkaline Phosphatase Lactate Dehydrogenase Troponin T C-Reactive Protein Total Protein Albumin Prealbumin Triglycerides Cholesterol LDL Cholesterol Direct HDL Cholesterol Urine pH Urine WBC (Auto) Urine Creatinine Urine Total Protein Fluid Total Protein Vancomycin Trough Rheumatoid Factor Complement C4 Miscellaneous Test Crossmatch 11/01/16 11/01/16 11/01/16 04:55 04:55 06:11 WBC 11.2 H RBC 2.68 L Hgb 7.5 L Hct 23.7 L MCV MCH MCHC RDW 16.1 H Plt Count Lymph % (Auto) [place] % (Auto) 9.8 H Lymph # [place] # 1.1 H Baso # Seg Neutrophils % 70.8 H Seg Neuts % (Manual) Lymphocytes % (Manual) Monocytes % (Manual) Eosinophils % (Manual) Basophils % (Manual) Nucleated RBC % Seg Neutrophils # 7.9 H Seg Neutrophils # Man Lymphocytes # (Manual) Monocytes # (Manual) Eosinophils # (Manual) Basophils # (Manual) PT INR Fibrinogen dRVVT Confirm Interp Factor V Activity POC ABG pH POC ABG pCO2 POC ABG pO2 ABG pO2 ABG HCO3 ABG Base Excess ABG Hemoglobin Oxyhemoglobin Sodium Potassium 3.3 L D Chloride Carbon Dioxide BUN 61 H Creatinine 1.9 H Glucose 114 H POC Glucose 115 H Lactic Acid Calcium Phosphorus 1.80 L D Magnesium Direct Bilirubin AST ALT Alkaline Phosphatase Lactate Dehydrogenase Troponin T C-Reactive Protein Total Protein Albumin Prealbumin Triglycerides Cholesterol LDL Cholesterol Direct HDL Cholesterol Urine pH Urine WBC (Auto) Urine Creatinine Urine Total Protein Fluid Total Protein Vancomycin Trough Rheumatoid Factor Complement C4 Miscellaneous Test Crossmatch 11/01/16 11/01/16 11/01/16 12:29 18:23 23:58 WBC RBC Hgb Hct MCV MCH MCHC RDW Plt Count Lymph % (Auto) [place] % (Auto) Lymph # [place] # Baso # Seg Neutrophils % Seg Neuts % (Manual) Lymphocytes % (Manual) Monocytes % (Manual) Eosinophils % (Manual) Basophils % (Manual) Nucleated RBC % Seg Neutrophils # Seg Neutrophils # Man Lymphocytes # (Manual) Monocytes # (Manual) Eosinophils # (Manual) Basophils # (Manual) PT INR Fibrinogen dRVVT Confirm Interp Factor V Activity POC ABG pH POC ABG pCO2 POC ABG pO2 ABG pO2 ABG HCO3 ABG Base Excess ABG Hemoglobin Oxyhemoglobin Sodium Potassium Chloride Carbon Dioxide BUN Creatinine Glucose POC Glucose 142 H 143 H 128 H Lactic Acid Calcium Phosphorus Magnesium Direct Bilirubin AST ALT Alkaline Phosphatase Lactate Dehydrogenase Troponin T C-Reactive Protein Total Protein Albumin Prealbumin Triglycerides Cholesterol LDL Cholesterol Direct HDL Cholesterol Urine pH Urine WBC (Auto) Urine Creatinine Urine Total Protein Fluid Total Protein Vancomycin Trough Rheumatoid Factor Complement C4 Miscellaneous Test Crossmatch 11/02/16 11/02/16 11/02/16 04:16 05:29 11:58 WBC RBC Hgb Hct MCV MCH MCHC RDW Plt Count Lymph % (Auto) [place] % (Auto) Lymph # [place] # Baso # Seg Neutrophils % Seg Neuts % (Manual) Lymphocytes % (Manual) Monocytes % (Manual) Eosinophils % (Manual) Basophils % (Manual) Nucleated RBC % Seg Neutrophils # Seg Neutrophils # Man Lymphocytes # (Manual) Monocytes # (Manual) Eosinophils # (Manual) Basophils # (Manual) PT INR Fibrinogen dRVVT Confirm Interp Factor V Activity POC ABG pH POC ABG pCO2 POC ABG pO2 ABG pO2 ABG HCO3 ABG Base Excess ABG Hemoglobin Oxyhemoglobin Sodium Potassium 3.1 L Chloride Carbon Dioxide BUN 73 H Creatinine 2.3 H Glucose 112 H POC Glucose 135 H 149 H Lactic Acid Calcium Phosphorus Magnesium Direct Bilirubin AST ALT Alkaline Phosphatase Lactate Dehydrogenase Troponin T C-Reactive Protein Total Protein Albumin Prealbumin Triglycerides Cholesterol LDL Cholesterol Direct HDL Cholesterol Urine pH Urine WBC (Auto) Urine Creatinine Urine Total Protein Fluid Total Protein Vancomycin Trough Rheumatoid Factor Complement C4 Miscellaneous Test Crossmatch 11/02/16 11/02/16 11/03/16 17:42 22:54 06:00 WBC RBC Hgb Hct MCV MCH MCHC RDW Plt Count Lymph % (Auto) [place] % (Auto) Lymph # [place] # Baso # Seg Neutrophils % Seg Neuts % (Manual) Lymphocytes % (Manual) Monocytes % (Manual) Eosinophils % (Manual) Basophils % (Manual) Nucleated RBC % Seg Neutrophils # Seg Neutrophils # Man Lymphocytes # (Manual) Monocytes # (Manual) Eosinophils # (Manual) Basophils # (Manual) PT INR Fibrinogen dRVVT Confirm Interp Factor V Activity POC ABG pH POC ABG pCO2 POC ABG pO2 ABG pO2 ABG HCO3 ABG Base Excess ABG Hemoglobin Oxyhemoglobin Sodium Potassium Chloride 96.7 L Carbon Dioxide BUN 41 H Creatinine 1.5 H Glucose 145 H POC Glucose 182 H 115 H Lactic Acid Calcium Phosphorus 1.60 L D Magnesium 1.50 L Direct Bilirubin AST ALT Alkaline Phosphatase Lactate Dehydrogenase Troponin T C-Reactive Protein Total Protein Albumin Prealbumin Triglycerides Cholesterol LDL Cholesterol Direct HDL Cholesterol Urine pH Urine WBC (Auto) Urine Creatinine Urine Total Protein Fluid Total Protein Vancomycin Trough Rheumatoid Factor Complement C4 Miscellaneous Test Crossmatch 11/03/16 11/03/16 11/03/16 11:53 17:45 23:37 WBC RBC Hgb Hct MCV MCH MCHC RDW Plt Count Lymph % (Auto) [place] % (Auto) Lymph # [place] # Baso # Seg Neutrophils % Seg Neuts % (Manual) Lymphocytes % (Manual) Monocytes % (Manual) Eosinophils % (Manual) Basophils % (Manual) Nucleated RBC % Seg Neutrophils # Seg Neutrophils # Man Lymphocytes # (Manual) Monocytes # (Manual) Eosinophils # (Manual) Basophils # (Manual) PT INR Fibrinogen dRVVT Confirm Interp Factor V Activity POC ABG pH POC ABG pCO2 POC ABG pO2 ABG pO2 ABG HCO3 ABG Base Excess ABG Hemoglobin Oxyhemoglobin Sodium Potassium Chloride Carbon Dioxide BUN Creatinine Glucose POC Glucose 131 H 134 H 113 H Lactic Acid Calcium Phosphorus Magnesium Direct Bilirubin AST ALT Alkaline Phosphatase Lactate Dehydrogenase Troponin T C-Reactive Protein Total Protein Albumin Prealbumin Triglycerides Cholesterol LDL Cholesterol Direct HDL Cholesterol Urine pH Urine WBC (Auto) Urine Creatinine Urine Total Protein Fluid Total Protein Vancomycin Trough Rheumatoid Factor Complement C4 Miscellaneous Test Crossmatch 11/04/16 11/04/16 11/04/16 05:41 06:00 12:10 WBC RBC Hgb Hct MCV MCH MCHC RDW Plt Count Lymph % (Auto) [place] % (Auto) Lymph # [place] # Baso # Seg Neutrophils % Seg Neuts % (Manual) Lymphocytes % (Manual) Monocytes % (Manual) Eosinophils % (Manual) Basophils % (Manual) Nucleated RBC % Seg Neutrophils # Seg Neutrophils # Man Lymphocytes # (Manual) Monocytes # (Manual) Eosinophils # (Manual) Basophils # (Manual) PT INR Fibrinogen dRVVT Confirm Interp Factor V Activity POC ABG pH POC ABG pCO2 POC ABG pO2 ABG pO2 ABG HCO3 ABG Base Excess ABG Hemoglobin Oxyhemoglobin Sodium Potassium Chloride 96.7 L Carbon Dioxide BUN 52 H Creatinine 1.9 H Glucose 126 H POC Glucose 137 H 191 H Lactic Acid Calcium Phosphorus Magnesium Direct Bilirubin AST ALT Alkaline Phosphatase Lactate Dehydrogenase Troponin T C-Reactive Protein Total Protein Albumin Prealbumin Triglycerides Cholesterol LDL Cholesterol Direct HDL Cholesterol Urine pH Urine WBC (Auto) Urine Creatinine Urine Total Protein Fluid Total Protein Vancomycin Trough Rheumatoid Factor Complement C4 Miscellaneous Test Crossmatch 11/04/16 11/05/16 11/05/16 22:57 03:10 05:10 WBC RBC Hgb Hct MCV MCH MCHC RDW Plt Count Lymph % (Auto) [place] % (Auto) Lymph # [place] # Baso # Seg Neutrophils % Seg Neuts % (Manual) Lymphocytes % (Manual) Monocytes % (Manual) Eosinophils % (Manual) Basophils % (Manual) Nucleated RBC % Seg Neutrophils # Seg Neutrophils # Man Lymphocytes # (Manual) Monocytes # (Manual) Eosinophils # (Manual) Basophils # (Manual) PT INR Fibrinogen dRVVT Confirm Interp Factor V Activity POC ABG pH POC ABG pCO2 POC ABG pO2 ABG pO2 ABG HCO3 ABG Base Excess ABG Hemoglobin Oxyhemoglobin Sodium 136 L Potassium Chloride 97.2 L Carbon Dioxide BUN 32 H Creatinine 1.3 H Glucose 123 H POC Glucose 125 H 108 H Lactic Acid Calcium 7.8 L Phosphorus Magnesium Direct Bilirubin AST ALT Alkaline Phosphatase Lactate Dehydrogenase Troponin T C-Reactive Protein Total Protein Albumin Prealbumin Triglycerides Cholesterol LDL Cholesterol Direct HDL Cholesterol Urine pH Urine WBC (Auto) Urine Creatinine Urine Total Protein Fluid Total Protein Vancomycin Trough Rheumatoid Factor Complement C4 Miscellaneous Test Crossmatch 11/05/16 11/05/16 11/05/16 12:23 13:09 13:25 WBC RBC Hgb Hct MCV MCH MCHC RDW Plt Count Lymph % (Auto) [place] % (Auto) Lymph # [place] # Baso # Seg Neutrophils % Seg Neuts % (Manual) Lymphocytes % (Manual) Monocytes % (Manual) Eosinophils % (Manual) Basophils % (Manual) Nucleated RBC % Seg Neutrophils # Seg Neutrophils # Man Lymphocytes # (Manual) Monocytes # (Manual) Eosinophils # (Manual) Basophils # (Manual) PT INR Fibrinogen dRVVT Confirm Interp Factor V Activity POC ABG pH POC ABG pCO2 POC ABG pO2 ABG pO2 ABG HCO3 ABG Base Excess ABG Hemoglobin Oxyhemoglobin Sodium Potassium Chloride Carbon Dioxide BUN Creatinine Glucose POC Glucose 124 H Lactic Acid Calcium Phosphorus Magnesium Direct Bilirubin AST ALT Alkaline Phosphatase Lactate Dehydrogenase Troponin T C-Reactive Protein 11.40 H Total Protein Albumin Prealbumin Triglycerides Cholesterol LDL Cholesterol Direct HDL Cholesterol Urine pH 9.0 H Urine WBC (Auto) Urine Creatinine Urine Total Protein Fluid Total Protein Vancomycin Trough Rheumatoid Factor Complement C4 Miscellaneous Test Crossmatch 11/05/16 11/05/16 11/05/16 13:25 17:54 23:42 WBC RBC Hgb Hct MCV MCH MCHC RDW Plt Count Lymph % (Auto) [place] % (Auto) Lymph # [place] # Baso # Seg Neutrophils % Seg Neuts % (Manual) Lymphocytes % (Manual) Monocytes % (Manual) Eosinophils % (Manual) Basophils % (Manual) Nucleated RBC % Seg Neutrophils # Seg Neutrophils # Man Lymphocytes # (Manual) Monocytes # (Manual) Eosinophils # (Manual) Basophils # (Manual) PT INR Fibrinogen dRVVT Confirm Interp Factor V Activity POC ABG pH POC ABG pCO2 POC ABG pO2 ABG pO2 ABG HCO3 ABG Base Excess ABG Hemoglobin Oxyhemoglobin Sodium Potassium Chloride Carbon Dioxide BUN Creatinine Glucose POC Glucose 114 H 134 H Lactic Acid Calcium Phosphorus Magnesium Direct Bilirubin AST ALT Alkaline Phosphatase Lactate Dehydrogenase Troponin T C-Reactive Protein Total Protein Albumin Prealbumin Triglycerides Cholesterol LDL Cholesterol Direct HDL Cholesterol Urine pH Urine WBC (Auto) Urine Creatinine Urine Total Protein Fluid Total Protein Vancomycin Trough Rheumatoid Factor Complement C4 Miscellaneous Test Flexitest 1 H Crossmatch 11/06/16 11/06/16 11/06/16 04:56 06:25 06:25 WBC RBC 2.50 L Hgb 7.3 L Hct 22.5 L MCV MCH MCHC RDW 16.9 H Plt Count Lymph % (Auto) [place] % (Auto) 10.5 H Lymph # [place] # 1.1 H Baso # Seg Neutrophils % Seg Neuts % (Manual) Lymphocytes % (Manual) Monocytes % (Manual) Eosinophils % (Manual) Basophils % (Manual) Nucleated RBC % Seg Neutrophils # Seg Neutrophils # Man Lymphocytes # (Manual) Monocytes # (Manual) Eosinophils # (Manual) Basophils # (Manual) PT INR Fibrinogen dRVVT Confirm Interp Factor V Activity POC ABG pH POC ABG pCO2 POC ABG pO2 ABG pO2 ABG HCO3 ABG Base Excess ABG Hemoglobin Oxyhemoglobin Sodium Potassium 5.1 H Chloride 95.9 L Carbon Dioxide BUN 52 H Creatinine 1.8 H Glucose 117 H POC Glucose 120 H Lactic Acid Calcium Phosphorus Magnesium Direct Bilirubin AST 103 H ALT 77 H Alkaline Phosphatase 285 H Lactate Dehydrogenase Troponin T C-Reactive Protein Total Protein 6.2 L Albumin 1.8 L Prealbumin 0.180 L Triglycerides Cholesterol LDL Cholesterol Direct HDL Cholesterol Urine pH Urine WBC (Auto) Urine Creatinine Urine Total Protein Fluid Total Protein Vancomycin Trough Rheumatoid Factor Complement C4 Miscellaneous Test Crossmatch 11/06/16 11/06/16 11/06/16 11:56 17:14 23:52 WBC RBC Hgb Hct MCV MCH MCHC RDW Plt Count Lymph % (Auto) [place] % (Auto) Lymph # [place] # Baso # Seg Neutrophils % Seg Neuts % (Manual) Lymphocytes % (Manual) Monocytes % (Manual) Eosinophils % (Manual) Basophils % (Manual) Nucleated RBC % Seg Neutrophils # Seg Neutrophils # Man Lymphocytes # (Manual) Monocytes # (Manual) Eosinophils # (Manual) Basophils # (Manual) PT INR Fibrinogen dRVVT Confirm Interp Factor V Activity POC ABG pH POC ABG pCO2 POC ABG pO2 ABG pO2 ABG HCO3 ABG Base Excess ABG Hemoglobin Oxyhemoglobin Sodium Potassium Chloride Carbon Dioxide BUN Creatinine Glucose POC Glucose 141 H 125 H 130 H Lactic Acid Calcium Phosphorus Magnesium Direct Bilirubin AST ALT Alkaline Phosphatase Lactate Dehydrogenase Troponin T C-Reactive Protein Total Protein Albumin Prealbumin Triglycerides Cholesterol LDL Cholesterol Direct HDL Cholesterol Urine pH Urine WBC (Auto) Urine Creatinine Urine Total Protein Fluid Total Protein Vancomycin Trough Rheumatoid Factor Complement C4 Miscellaneous Test Crossmatch 11/07/16 11/07/16 11/07/16 06:30 06:30 09:37 WBC RBC 2.18 L Hgb 6.3 L Hct 19.7 L* MCV MCH MCHC RDW 16.8 H Plt Count Lymph % (Auto) [place] % (Auto) 10.0 H Lymph # [place] # 1.0 H Baso # Seg Neutrophils % Seg Neuts % (Manual) Lymphocytes % (Manual) Monocytes % (Manual) Eosinophils % (Manual) Basophils % (Manual) Nucleated RBC % Seg Neutrophils # Seg Neutrophils # Man Lymphocytes # (Manual) Monocytes # (Manual) Eosinophils # (Manual) Basophils # (Manual) PT INR Fibrinogen dRVVT Confirm Interp Factor V Activity POC ABG pH POC ABG pCO2 POC ABG pO2 ABG pO2 ABG HCO3 ABG Base Excess ABG Hemoglobin Oxyhemoglobin Sodium 135 L Potassium Chloride 95.6 L Carbon Dioxide BUN 70 H Creatinine 2.0 H Glucose 126 H POC Glucose Lactic Acid Calcium Phosphorus Magnesium Direct Bilirubin AST ALT Alkaline Phosphatase Lactate Dehydrogenase Troponin T C-Reactive Protein Total Protein Albumin Prealbumin Triglycerides Cholesterol LDL Cholesterol Direct HDL Cholesterol Urine pH Urine WBC (Auto) Urine Creatinine Urine Total Protein Fluid Total Protein Vancomycin Trough Rheumatoid Factor Complement C4 Miscellaneous Test Crossmatch See Detail 11/07/16 11/07/16 11/07/16 12:52 18:51 21:26 WBC RBC Hgb Hct MCV MCH MCHC RDW Plt Count Lymph % (Auto) [place] % (Auto) Lymph # [place] # Baso # Seg Neutrophils % Seg Neuts % (Manual) Lymphocytes % (Manual) Monocytes % (Manual) Eosinophils % (Manual) Basophils % (Manual) Nucleated RBC % Seg Neutrophils # Seg Neutrophils # Man Lymphocytes # (Manual) Monocytes # (Manual) Eosinophils # (Manual) Basophils # (Manual) PT INR Fibrinogen dRVVT Confirm Interp Factor V Activity POC ABG pH 7.523 H POC ABG pCO2 34.6 L POC ABG pO2 53 L ABG pO2 ABG HCO3 ABG Base Excess ABG Hemoglobin Oxyhemoglobin Sodium Potassium Chloride Carbon Dioxide BUN Creatinine Glucose POC Glucose 142 H 155 H Lactic Acid Calcium Phosphorus Magnesium Direct Bilirubin AST ALT Alkaline Phosphatase Lactate Dehydrogenase Troponin T C-Reactive Protein Total Protein Albumin Prealbumin Triglycerides Cholesterol LDL Cholesterol Direct HDL Cholesterol Urine pH Urine WBC (Auto) Urine Creatinine Urine Total Protein Fluid Total Protein Vancomycin Trough Rheumatoid Factor Complement C4 Miscellaneous Test Crossmatch 11/07/16 11/08/16 11/08/16 21:34 13:03 23:37 WBC RBC 2.63 L Hgb 7.7 L Hct 22.7 L MCV MCH MCHC RDW 17.0 H Plt Count Lymph % (Auto) [place] % (Auto) Lymph # [place] # Baso # Seg Neutrophils % Seg Neuts % (Manual) Lymphocytes % (Manual) Monocytes % (Manual) Eosinophils % (Manual) Basophils % (Manual) Nucleated RBC % Seg Neutrophils # Seg Neutrophils # Man Lymphocytes # (Manual) Monocytes # (Manual) Eosinophils # (Manual) Basophils # (Manual) PT INR Fibrinogen dRVVT Confirm Interp Factor V Activity POC ABG pH 7.478 H POC ABG pCO2 34.0 L POC ABG pO2 50 L ABG pO2 ABG HCO3 ABG Base Excess ABG Hemoglobin Oxyhemoglobin Sodium Potassium Chloride Carbon Dioxide BUN Creatinine Glucose POC Glucose 113 H Lactic Acid Calcium Phosphorus Magnesium Direct Bilirubin AST ALT Alkaline Phosphatase Lactate Dehydrogenase Troponin T C-Reactive Protein Total Protein Albumin Prealbumin Triglycerides Cholesterol LDL Cholesterol Direct HDL Cholesterol Urine pH Urine WBC (Auto) Urine Creatinine Urine Total Protein Fluid Total Protein Vancomycin Trough Rheumatoid Factor Complement C4 Miscellaneous Test Crossmatch 11/09/16 11/09/16 11/09/16 04:35 10:15 18:21 WBC RBC 2.68 L Hgb 7.8 L Hct 23.3 L MCV MCH MCHC RDW 17.0 H Plt Count Lymph % (Auto) [place] % (Auto) 12.1 H Lymph # [place] # 1.1 H Baso # Seg Neutrophils % Seg Neuts % (Manual) Lymphocytes % (Manual) Monocytes % (Manual) Eosinophils % (Manual) Basophils % (Manual) Nucleated RBC % Seg Neutrophils # Seg Neutrophils # Man Lymphocytes # (Manual) Monocytes # (Manual) Eosinophils # (Manual) Basophils # (Manual) PT INR Fibrinogen dRVVT Confirm Interp Factor V Activity POC ABG pH POC ABG pCO2 POC ABG pO2 ABG pO2 ABG HCO3 ABG Base Excess ABG Hemoglobin Oxyhemoglobin Sodium Potassium Chloride Carbon Dioxide BUN 51 H Creatinine 1.8 H Glucose POC Glucose 60 L Lactic Acid Calcium 8.3 L Phosphorus Magnesium Direct Bilirubin AST ALT Alkaline Phosphatase Lactate Dehydrogenase Troponin T C-Reactive Protein Total Protein Albumin Prealbumin Triglycerides Cholesterol LDL Cholesterol Direct HDL Cholesterol Urine pH Urine WBC (Auto) Urine Creatinine Urine Total Protein Fluid Total Protein Vancomycin Trough Rheumatoid Factor Complement C4 Miscellaneous Test Crossmatch 11/09/16 11/10/16 11/10/16 18:55 07:00 11:51 WBC RBC Hgb Hct MCV MCH MCHC RDW Plt Count Lymph % (Auto) [place] % (Auto) Lymph # [place] # Baso # Seg Neutrophils % Seg Neuts % (Manual) Lymphocytes % (Manual) Monocytes % (Manual) Eosinophils % (Manual) Basophils % (Manual) Nucleated RBC % Seg Neutrophils # Seg Neutrophils # Man Lymphocytes # (Manual) Monocytes # (Manual) Eosinophils # (Manual) Basophils # (Manual) PT INR Fibrinogen dRVVT Confirm Interp Factor V Activity POC ABG pH POC ABG pCO2 POC ABG pO2 ABG pO2 ABG HCO3 ABG Base Excess ABG Hemoglobin Oxyhemoglobin Sodium Potassium 3.0 L D Chloride 97.4 L Carbon Dioxide BUN 28 H Creatinine 1.3 H Glucose POC Glucose 68 L 120 H Lactic Acid Calcium 7.8 L Phosphorus Magnesium Direct Bilirubin AST ALT Alkaline Phosphatase Lactate Dehydrogenase Troponin T C-Reactive Protein Total Protein Albumin Prealbumin Triglycerides Cholesterol LDL Cholesterol Direct HDL Cholesterol Urine pH Urine WBC (Auto) Urine Creatinine Urine Total Protein Fluid Total Protein Vancomycin Trough Rheumatoid Factor Complement C4 Miscellaneous Test Crossmatch 11/10/16 11/11/16 11/11/16 14:20 06:59 06:59 WBC RBC 2.81 L Hgb 8.1 L Hct 24.4 L MCV MCH MCHC RDW 16.4 H Plt Count Lymph % (Auto) [place] % (Auto) 10.8 H Lymph # [place] # 1.0 H Baso # Seg Neutrophils % Seg Neuts % (Manual) Lymphocytes % (Manual) Monocytes % (Manual) Eosinophils % (Manual) Basophils % (Manual) Nucleated RBC % Seg Neutrophils # Seg Neutrophils # Man Lymphocytes # (Manual) Monocytes # (Manual) Eosinophils # (Manual) Basophils # (Manual) PT INR Fibrinogen dRVVT Confirm Interp Factor V Activity POC ABG pH POC ABG pCO2 POC ABG pO2 ABG pO2 ABG HCO3 ABG Base Excess ABG Hemoglobin Oxyhemoglobin Sodium Potassium Chloride Carbon Dioxide BUN Creatinine Glucose POC Glucose Lactic Acid Calcium Phosphorus Magnesium Direct Bilirubin AST ALT Alkaline Phosphatase Lactate Dehydrogenase 196 H Troponin T C-Reactive Protein Total Protein 6.1 L Albumin Prealbumin Triglycerides Cholesterol LDL Cholesterol Direct HDL Cholesterol Urine pH Urine WBC (Auto) Urine Creatinine Urine Total Protein Fluid Total Protein < 3.0 L Vancomycin Trough Rheumatoid Factor Complement C4 Miscellaneous Test Crossmatch 11/11/16 11/11/16 11/12/16 06:59 09:50 04:00 WBC RBC Hgb Hct MCV MCH MCHC RDW Plt Count Lymph % (Auto) [place] % (Auto) Lymph # [place] # Baso # Seg Neutrophils % Seg Neuts % (Manual) Lymphocytes % (Manual) Monocytes % (Manual) Eosinophils % (Manual) Basophils % (Manual) Nucleated RBC % Seg Neutrophils # Seg Neutrophils # Man Lymphocytes # (Manual) Monocytes # (Manual) Eosinophils # (Manual) Basophils # (Manual) PT INR 1.18 H Fibrinogen dRVVT Confirm Interp Factor V Activity POC ABG pH POC ABG pCO2 POC ABG pO2 ABG pO2 ABG HCO3 ABG Base Excess ABG Hemoglobin Oxyhemoglobin Sodium 136 L 133 L Potassium Chloride 96.1 L 94.8 L Carbon Dioxide 21 L BUN 37 H 42 H Creatinine 1.8 H 2.0 H Glucose POC Glucose Lactic Acid Calcium Phosphorus Magnesium Direct Bilirubin AST ALT Alkaline Phosphatase Lactate Dehydrogenase Troponin T C-Reactive Protein Total Protein Albumin Prealbumin Triglycerides Cholesterol LDL Cholesterol Direct HDL Cholesterol Urine pH Urine WBC (Auto) Urine Creatinine Urine Total Protein Fluid Total Protein Vancomycin Trough Rheumatoid Factor Complement C4 Miscellaneous Test Crossmatch 11/12/16 11/12/16 11/13/16 04:00 23:55 05:53 WBC RBC Hgb 8.9 L Hct 27.2 L MCV MCH MCHC RDW Plt Count Lymph % (Auto) [place] % (Auto) Lymph # [place] # Baso # Seg Neutrophils % Seg Neuts % (Manual) Lymphocytes % (Manual) Monocytes % (Manual) Eosinophils % (Manual) Basophils % (Manual) Nucleated RBC % Seg Neutrophils # Seg Neutrophils # Man Lymphocytes # (Manual) Monocytes # (Manual) Eosinophils # (Manual) Basophils # (Manual) PT INR Fibrinogen dRVVT Confirm Interp Factor V Activity POC ABG pH POC ABG pCO2 POC ABG pO2 ABG pO2 ABG HCO3 ABG Base Excess ABG Hemoglobin Oxyhemoglobin Sodium Potassium Chloride Carbon Dioxide BUN Creatinine Glucose POC Glucose 132 H 120 H Lactic Acid Calcium Phosphorus Magnesium Direct Bilirubin AST ALT Alkaline Phosphatase Lactate Dehydrogenase Troponin T C-Reactive Protein Total Protein Albumin Prealbumin Triglycerides Cholesterol LDL Cholesterol Direct HDL Cholesterol Urine pH Urine WBC (Auto) Urine Creatinine Urine Total Protein Fluid Total Protein Vancomycin Trough Rheumatoid Factor Complement C4 Miscellaneous Test Crossmatch 11/13/16 11/13/16 11/13/16 11:43 17:09 23:41 WBC RBC Hgb Hct MCV MCH MCHC RDW Plt Count Lymph % (Auto) [place] % (Auto) Lymph # [place] # Baso # Seg Neutrophils % Seg Neuts % (Manual) Lymphocytes % (Manual) Monocytes % (Manual) Eosinophils % (Manual) Basophils % (Manual) Nucleated RBC % Seg Neutrophils # Seg Neutrophils # Man Lymphocytes # (Manual) Monocytes # (Manual) Eosinophils # (Manual) Basophils # (Manual) PT INR Fibrinogen dRVVT Confirm Interp Factor V Activity POC ABG pH POC ABG pCO2 POC ABG pO2 ABG pO2 ABG HCO3 ABG Base Excess ABG Hemoglobin Oxyhemoglobin Sodium Potassium Chloride Carbon Dioxide BUN Creatinine Glucose POC Glucose 114 H 113 H 108 H Lactic Acid Calcium Phosphorus Magnesium Direct Bilirubin AST ALT Alkaline Phosphatase Lactate Dehydrogenase Troponin T C-Reactive Protein Total Protein Albumin Prealbumin Triglycerides Cholesterol LDL Cholesterol Direct HDL Cholesterol Urine pH Urine WBC (Auto) Urine Creatinine Urine Total Protein Fluid Total Protein Vancomycin Trough Rheumatoid Factor Complement C4 Miscellaneous Test Crossmatch 11/13/16 11/15/16 11/15/16 Unknown 00:37 03:30 WBC 11.2 H RBC 2.72 L Hgb 7.6 L Hct 23.4 L MCV MCH MCHC RDW 16.5 H Plt Count Lymph % (Auto) [place] % (Auto) Lymph # [place] # Baso # Seg Neutrophils % Seg Neuts % (Manual) Lymphocytes % (Manual) Monocytes % (Manual) Eosinophils % (Manual) Basophils % (Manual) Nucleated RBC % Seg Neutrophils # Seg Neutrophils # Man Lymphocytes # (Manual) Monocytes # (Manual) Eosinophils # (Manual) Basophils # (Manual) PT INR Fibrinogen dRVVT Confirm Interp Factor V Activity POC ABG pH POC ABG pCO2 POC ABG pO2 ABG pO2 ABG HCO3 ABG Base Excess ABG Hemoglobin Oxyhemoglobin Sodium 135 L Potassium Chloride 95.2 L Carbon Dioxide BUN 52 H Creatinine 2.2 H Glucose POC Glucose 108 H Lactic Acid Calcium Phosphorus Magnesium Direct Bilirubin AST ALT Alkaline Phosphatase Lactate Dehydrogenase Troponin T C-Reactive Protein Total Protein Albumin Prealbumin Triglycerides Cholesterol LDL Cholesterol Direct HDL Cholesterol Urine pH Urine WBC (Auto) Urine Creatinine Urine Total Protein Fluid Total Protein Vancomycin Trough Rheumatoid Factor Complement C4 Miscellaneous Test Crossmatch 11/15/16 11/15/16 11/15/16 03:30 05:04 11:50 WBC RBC Hgb Hct MCV MCH MCHC RDW Plt Count Lymph % (Auto) [place] % (Auto) Lymph # [place] # Baso # Seg Neutrophils % Seg Neuts % (Manual) Lymphocytes % (Manual) Monocytes % (Manual) Eosinophils % (Manual) Basophils % (Manual) Nucleated RBC % Seg Neutrophils # Seg Neutrophils # Man Lymphocytes # (Manual) Monocytes # (Manual) Eosinophils # (Manual) Basophils # (Manual) PT INR Fibrinogen dRVVT Confirm Interp Factor V Activity POC ABG pH POC ABG pCO2 POC ABG pO2 ABG pO2 ABG HCO3 ABG Base Excess ABG Hemoglobin Oxyhemoglobin Sodium Potassium 3.4 L Chloride Carbon Dioxide BUN 25 H Creatinine 1.5 H Glucose 103 H POC Glucose 121 H 144 H Lactic Acid Calcium Phosphorus Magnesium Direct Bilirubin AST ALT Alkaline Phosphatase Lactate Dehydrogenase Troponin T C-Reactive Protein Total Protein Albumin Prealbumin Triglycerides Cholesterol LDL Cholesterol Direct HDL Cholesterol Urine pH Urine WBC (Auto) Urine Creatinine Urine Total Protein Fluid Total Protein Vancomycin Trough Rheumatoid Factor Complement C4 Miscellaneous Test Crossmatch 11/15/16 11/15/16 11/16/16 21:28 23:20 11:44 WBC RBC Hgb Hct MCV MCH MCHC RDW Plt Count Lymph % (Auto) [place] % (Auto) Lymph # [place] # Baso # Seg Neutrophils % Seg Neuts % (Manual) Lymphocytes % (Manual) Monocytes % (Manual) Eosinophils % (Manual) Basophils % (Manual) Nucleated RBC % Seg Neutrophils # Seg Neutrophils # Man Lymphocytes # (Manual) Monocytes # (Manual) Eosinophils # (Manual) Basophils # (Manual) PT INR Fibrinogen dRVVT Confirm Interp Factor V Activity POC ABG pH 7.462 H POC ABG pCO2 POC ABG pO2 71 L ABG pO2 ABG HCO3 ABG Base Excess ABG Hemoglobin Oxyhemoglobin Sodium Potassium Chloride Carbon Dioxide BUN Creatinine Glucose POC Glucose 116 H 133 H Lactic Acid Calcium Phosphorus Magnesium Direct Bilirubin AST ALT Alkaline Phosphatase Lactate Dehydrogenase Troponin T C-Reactive Protein Total Protein Albumin Prealbumin Triglycerides Cholesterol LDL Cholesterol Direct HDL Cholesterol Urine pH Urine WBC (Auto) Urine Creatinine Urine Total Protein Fluid Total Protein Vancomycin Trough Rheumatoid Factor Complement C4 Miscellaneous Test Crossmatch 11/16/16 11/16/16 11/16/16 12:20 17:05 23:35 WBC 11.7 H RBC 2.73 L Hgb 7.6 L Hct 23.7 L MCV MCH MCHC RDW 16.6 H Plt Count Lymph % (Auto) [place] % (Auto) Lymph # [place] # Baso # Seg Neutrophils % Seg Neuts % (Manual) Lymphocytes % (Manual) Monocytes % (Manual) Eosinophils % (Manual) Basophils % (Manual) Nucleated RBC % Seg Neutrophils # Seg Neutrophils # Man Lymphocytes # (Manual) Monocytes # (Manual) Eosinophils # (Manual) Basophils # (Manual) PT INR Fibrinogen dRVVT Confirm Interp Factor V Activity POC ABG pH POC ABG pCO2 POC ABG pO2 ABG pO2 ABG HCO3 ABG Base Excess ABG Hemoglobin Oxyhemoglobin Sodium Potassium Chloride Carbon Dioxide BUN Creatinine Glucose POC Glucose 154 H 125 H Lactic Acid Calcium Phosphorus Magnesium Direct Bilirubin AST ALT Alkaline Phosphatase Lactate Dehydrogenase Troponin T C-Reactive Protein Total Protein Albumin Prealbumin Triglycerides Cholesterol LDL Cholesterol Direct HDL Cholesterol Urine pH Urine WBC (Auto) Urine Creatinine Urine Total Protein Fluid Total Protein Vancomycin Trough Rheumatoid Factor Complement C4 Miscellaneous Test Crossmatch 11/17/16 11/17/16 11/17/16 03:20 03:20 03:20 WBC RBC 2.55 L Hgb 7.3 L Hct 21.9 L MCV MCH MCHC RDW 16.6 H Plt Count Lymph % (Auto) [place] % (Auto) 11.5 H Lymph # [place] # 1.1 H Baso # Seg Neutrophils % Seg Neuts % (Manual) Lymphocytes % (Manual) Monocytes % (Manual) Eosinophils % (Manual) Basophils % (Manual) Nucleated RBC % Seg Neutrophils # Seg Neutrophils # Man Lymphocytes # (Manual) Monocytes # (Manual) Eosinophils # (Manual) Basophils # (Manual) PT 16.8 H INR 1.37 H Fibrinogen dRVVT Confirm Interp Factor V Activity POC ABG pH POC ABG pCO2 POC ABG pO2 ABG pO2 ABG HCO3 ABG Base Excess ABG Hemoglobin Oxyhemoglobin Sodium Potassium 3.5 L Chloride Carbon Dioxide BUN 21 H Creatinine Glucose POC Glucose Lactic Acid Calcium 7.9 L Phosphorus Magnesium Direct Bilirubin AST ALT Alkaline Phosphatase Lactate Dehydrogenase Troponin T C-Reactive Protein Total Protein Albumin Prealbumin Triglycerides Cholesterol LDL Cholesterol Direct HDL Cholesterol Urine pH Urine WBC (Auto) Urine Creatinine Urine Total Protein Fluid Total Protein Vancomycin Trough Rheumatoid Factor Complement C4 Miscellaneous Test Crossmatch 11/17/16 11/17/16 11/17/16 06:34 11:21 21:22 WBC RBC Hgb Hct MCV MCH MCHC RDW Plt Count Lymph % (Auto) [place] % (Auto) Lymph # [place] # Baso # Seg Neutrophils % Seg Neuts % (Manual) Lymphocytes % (Manual) Monocytes % (Manual) Eosinophils % (Manual) Basophils % (Manual) Nucleated RBC % Seg Neutrophils # Seg Neutrophils # Man Lymphocytes # (Manual) Monocytes # (Manual) Eosinophils # (Manual) Basophils # (Manual) PT INR Fibrinogen dRVVT Confirm Interp Factor V Activity POC ABG pH 7.467 H POC ABG pCO2 POC ABG pO2 73 L ABG pO2 ABG HCO3 ABG Base Excess ABG Hemoglobin Oxyhemoglobin Sodium Potassium Chloride Carbon Dioxide BUN Creatinine Glucose POC Glucose 121 H 119 H Lactic Acid Calcium Phosphorus Magnesium Direct Bilirubin AST ALT Alkaline Phosphatase Lactate Dehydrogenase Troponin T C-Reactive Protein Total Protein Albumin Prealbumin Triglycerides Cholesterol LDL Cholesterol Direct HDL Cholesterol Urine pH Urine WBC (Auto) Urine Creatinine Urine Total Protein Fluid Total Protein Vancomycin Trough Rheumatoid Factor Complement C4 Miscellaneous Test Crossmatch 11/18/16 11/18/16 11/19/16 12:16 17:19 00:00 WBC RBC Hgb Hct MCV MCH MCHC RDW Plt Count Lymph % (Auto) [place] % (Auto) Lymph # [place] # Baso # Seg Neutrophils % Seg Neuts % (Manual) Lymphocytes % (Manual) Monocytes % (Manual) Eosinophils % (Manual) Basophils % (Manual) Nucleated RBC % Seg Neutrophils # Seg Neutrophils # Man Lymphocytes # (Manual) Monocytes # (Manual) Eosinophils # (Manual) Basophils # (Manual) PT INR Fibrinogen dRVVT Confirm Interp Factor V Activity POC ABG pH POC ABG pCO2 POC ABG pO2 ABG pO2 ABG HCO3 ABG Base Excess ABG Hemoglobin Oxyhemoglobin Sodium Potassium Chloride Carbon Dioxide BUN Creatinine Glucose POC Glucose 124 H 162 H 139 H Lactic Acid Calcium Phosphorus Magnesium Direct Bilirubin AST ALT Alkaline Phosphatase Lactate Dehydrogenase Troponin T C-Reactive Protein Total Protein Albumin Prealbumin Triglycerides Cholesterol LDL Cholesterol Direct HDL Cholesterol Urine pH Urine WBC (Auto) Urine Creatinine Urine Total Protein Fluid Total Protein Vancomycin Trough Rheumatoid Factor Complement C4 Miscellaneous Test Crossmatch 11/19/16 11/19/16 11/20/16 05:00 12:43 00:40 WBC RBC Hgb Hct MCV MCH MCHC RDW Plt Count Lymph % (Auto) [place] % (Auto) Lymph # [place] # Baso # Seg Neutrophils % Seg Neuts % (Manual) Lymphocytes % (Manual) Monocytes % (Manual) Eosinophils % (Manual) Basophils % (Manual) Nucleated RBC % Seg Neutrophils # Seg Neutrophils # Man Lymphocytes # (Manual) Monocytes # (Manual) Eosinophils # (Manual) Basophils # (Manual) PT INR Fibrinogen dRVVT Confirm Interp Factor V Activity POC ABG pH POC ABG pCO2 POC ABG pO2 ABG pO2 ABG HCO3 ABG Base Excess ABG Hemoglobin Oxyhemoglobin Sodium Potassium Chloride Carbon Dioxide BUN Creatinine Glucose POC Glucose 110 H 125 H 136 H Lactic Acid Calcium Phosphorus Magnesium Direct Bilirubin AST ALT Alkaline Phosphatase Lactate Dehydrogenase Troponin T C-Reactive Protein Total Protein Albumin Prealbumin Triglycerides Cholesterol LDL Cholesterol Direct HDL Cholesterol Urine pH Urine WBC (Auto) Urine Creatinine Urine Total Protein Fluid Total Protein Vancomycin Trough Rheumatoid Factor Complement C4 Miscellaneous Test Crossmatch 11/20/16 11/20/16 11/20/16 05:00 05:00 05:51 WBC 13.1 H RBC 2.74 L Hgb 7.7 L Hct 23.6 L MCV MCH MCHC RDW 16.9 H Plt Count Lymph % (Auto) [place] % (Auto) 10.8 H Lymph # [place] # 1.4 H Baso # Seg Neutrophils % Seg Neuts % (Manual) Lymphocytes % (Manual) Monocytes % (Manual) Eosinophils % (Manual) Basophils % (Manual) Nucleated RBC % Seg Neutrophils # 7.9 H Seg Neutrophils # Man Lymphocytes # (Manual) Monocytes # (Manual) Eosinophils # (Manual) Basophils # (Manual) PT INR Fibrinogen dRVVT Confirm Interp Factor V Activity POC ABG pH POC ABG pCO2 POC ABG pO2 ABG pO2 ABG HCO3 ABG Base Excess ABG Hemoglobin Oxyhemoglobin Sodium Potassium Chloride Carbon Dioxide BUN 31 H Creatinine 1.8 H Glucose 129 H POC Glucose 133 H Lactic Acid Calcium Phosphorus Magnesium Direct Bilirubin AST ALT Alkaline Phosphatase Lactate Dehydrogenase Troponin T C-Reactive Protein Total Protein Albumin Prealbumin Triglycerides Cholesterol LDL Cholesterol Direct HDL Cholesterol Urine pH Urine WBC (Auto) Urine Creatinine Urine Total Protein Fluid Total Protein Vancomycin Trough Rheumatoid Factor Complement C4 Miscellaneous Test Crossmatch 11/20/16 11/20/16 11/21/16 12:40 18:10 01:20 WBC RBC Hgb Hct MCV MCH MCHC RDW Plt Count Lymph % (Auto) [place] % (Auto) Lymph # [place] # Baso # Seg Neutrophils % Seg Neuts % (Manual) Lymphocytes % (Manual) Monocytes % (Manual) Eosinophils % (Manual) Basophils % (Manual) Nucleated RBC % Seg Neutrophils # Seg Neutrophils # Man Lymphocytes # (Manual) Monocytes # (Manual) Eosinophils # (Manual) Basophils # (Manual) PT INR Fibrinogen dRVVT Confirm Interp Factor V Activity POC ABG pH POC ABG pCO2 POC ABG pO2 ABG pO2 ABG HCO3 ABG Base Excess ABG Hemoglobin Oxyhemoglobin Sodium Potassium Chloride Carbon Dioxide BUN Creatinine Glucose POC Glucose 134 H 138 H 136 H Lactic Acid Calcium Phosphorus Magnesium Direct Bilirubin AST ALT Alkaline Phosphatase Lactate Dehydrogenase Troponin T C-Reactive Protein Total Protein Albumin Prealbumin Triglycerides Cholesterol LDL Cholesterol Direct HDL Cholesterol Urine pH Urine WBC (Auto) Urine Creatinine Urine Total Protein Fluid Total Protein Vancomycin Trough Rheumatoid Factor Complement C4 Miscellaneous Test Crossmatch 11/21/16 11/21/16 11/21/16 07:04 07:45 07:45 WBC 22.0 H RBC 2.91 L Hgb 8.2 L Hct 25.4 L MCV MCH MCHC RDW 17.1 H Plt Count Lymph % (Auto) [place] % (Auto) Lymph # [place] # Baso # Seg Neutrophils % Seg Neuts % (Manual) Lymphocytes % (Manual) 8.0 L Monocytes % (Manual) Eosinophils % (Manual) Basophils % (Manual) Nucleated RBC % Seg Neutrophils # Seg Neutrophils # Man 14.7 H Lymphocytes # (Manual) Monocytes # (Manual) 1.1 H Eosinophils # (Manual) Basophils # (Manual) PT INR Fibrinogen dRVVT Confirm Interp Factor V Activity POC ABG pH POC ABG pCO2 POC ABG pO2 ABG pO2 ABG HCO3 ABG Base Excess ABG Hemoglobin Oxyhemoglobin Sodium Potassium Chloride Carbon Dioxide BUN 42 H Creatinine 2.0 H Glucose POC Glucose 108 H Lactic Acid Calcium Phosphorus Magnesium Direct Bilirubin AST ALT Alkaline Phosphatase Lactate Dehydrogenase Troponin T C-Reactive Protein Total Protein Albumin Prealbumin Triglycerides Cholesterol LDL Cholesterol Direct HDL Cholesterol Urine pH Urine WBC (Auto) Urine Creatinine Urine Total Protein Fluid Total Protein Vancomycin Trough Rheumatoid Factor Complement C4 Miscellaneous Test Crossmatch 11/21/16 11/21/16 11/21/16 08:38 10:09 11:20 WBC RBC Hgb Hct MCV MCH MCHC RDW Plt Count Lymph % (Auto) [place] % (Auto) Lymph # [place] # Baso # Seg Neutrophils % Seg Neuts % (Manual) Lymphocytes % (Manual) Monocytes % (Manual) Eosinophils % (Manual) Basophils % (Manual) Nucleated RBC % Seg Neutrophils # Seg Neutrophils # Man Lymphocytes # (Manual) Monocytes # (Manual) Eosinophils # (Manual) Basophils # (Manual) PT INR Fibrinogen dRVVT Confirm Interp Factor V Activity POC ABG pH 7.346 L POC ABG pCO2 34.4 L POC ABG pO2 314 H ABG pO2 ABG HCO3 ABG Base Excess ABG Hemoglobin Oxyhemoglobin Sodium Potassium Chloride Carbon Dioxide BUN Creatinine Glucose POC Glucose 195 H 153 H Lactic Acid Calcium Phosphorus Magnesium Direct Bilirubin AST ALT Alkaline Phosphatase Lactate Dehydrogenase Troponin T C-Reactive Protein Total Protein Albumin Prealbumin Triglycerides Cholesterol LDL Cholesterol Direct HDL Cholesterol Urine pH Urine WBC (Auto) Urine Creatinine Urine Total Protein Fluid Total Protein Vancomycin Trough Rheumatoid Factor Complement C4 Miscellaneous Test Crossmatch 11/21/16 11/22/16 11/22/16 23:37 04:48 05:00 WBC 29.7 H RBC 2.73 L Hgb 7.5 L Hct 24.2 L MCV MCH 27 L MCHC RDW 17.4 H Plt Count Lymph % (Auto) [place] % (Auto) Lymph # [place] # Baso # Seg Neutrophils % Seg Neuts % (Manual) Lymphocytes % (Manual) 7.0 L Monocytes % (Manual) Eosinophils % (Manual) Basophils % (Manual) Nucleated RBC % Seg Neutrophils # Seg Neutrophils # Man 15.4 H Lymphocytes # (Manual) Monocytes # (Manual) Eosinophils # (Manual) Basophils # (Manual) PT INR Fibrinogen dRVVT Confirm Interp Factor V Activity POC ABG pH POC ABG pCO2 24.6 L POC ABG pO2 189 H ABG pO2 ABG HCO3 ABG Base Excess ABG Hemoglobin Oxyhemoglobin Sodium Potassium Chloride Carbon Dioxide BUN Creatinine Glucose POC Glucose 65 L Lactic Acid Calcium Phosphorus Magnesium Direct Bilirubin AST ALT Alkaline Phosphatase Lactate Dehydrogenase Troponin T C-Reactive Protein Total Protein Albumin Prealbumin Triglycerides Cholesterol LDL Cholesterol Direct HDL Cholesterol Urine pH Urine WBC (Auto) Urine Creatinine Urine Total Protein Fluid Total Protein Vancomycin Trough Rheumatoid Factor Complement C4 Miscellaneous Test Crossmatch 11/22/16 11/23/16 11/23/16 05:00 03:44 04:06 WBC RBC 2.52 L Hgb 7.2 L Hct 21.5 L MCV MCH MCHC RDW 17.1 H Plt Count Lymph % (Auto) [place] % (Auto) 12.4 H Lymph # [place] # 1.4 H Baso # Seg Neutrophils % Seg Neuts % (Manual) Lymphocytes % (Manual) Monocytes % (Manual) Eosinophils % (Manual) Basophils % (Manual) Nucleated RBC % Seg Neutrophils # Seg Neutrophils # Man Lymphocytes # (Manual) Monocytes # (Manual) Eosinophils # (Manual) Basophils # (Manual) PT INR Fibrinogen dRVVT Confirm Interp Factor V Activity POC ABG pH 7.493 H POC ABG pCO2 29.5 L POC ABG pO2 49 L ABG pO2 ABG HCO3 ABG Base Excess ABG Hemoglobin Oxyhemoglobin Sodium 134 L Potassium Chloride 95.9 L Carbon Dioxide 14 L D BUN 51 H Creatinine 2.6 H Glucose POC Glucose Lactic Acid Calcium Phosphorus Magnesium Direct Bilirubin AST ALT Alkaline Phosphatase Lactate Dehydrogenase Troponin T C-Reactive Protein Total Protein Albumin Prealbumin Triglycerides Cholesterol LDL Cholesterol Direct HDL Cholesterol Urine pH Urine WBC (Auto) Urine Creatinine Urine Total Protein Fluid Total Protein Vancomycin Trough Rheumatoid Factor Complement C4 Miscellaneous Test Crossmatch 11/23/16 11/23/16 11/24/16 04:06 11:29 06:39 WBC RBC Hgb Hct MCV MCH MCHC RDW Plt Count Lymph % (Auto) [place] % (Auto) Lymph # [place] # Baso # Seg Neutrophils % Seg Neuts % (Manual) Lymphocytes % (Manual) Monocytes % (Manual) Eosinophils % (Manual) Basophils % (Manual) Nucleated RBC % Seg Neutrophils # Seg Neutrophils # Man Lymphocytes # (Manual) Monocytes # (Manual) Eosinophils # (Manual) Basophils # (Manual) PT INR Fibrinogen dRVVT Confirm Interp Factor V Activity POC ABG pH POC ABG pCO2 POC ABG pO2 ABG pO2 ABG HCO3 ABG Base Excess ABG Hemoglobin Oxyhemoglobin Sodium 136 L Potassium Chloride 95.2 L Carbon Dioxide BUN 60 H Creatinine 2.9 H Glucose POC Glucose 69 L 305 H Lactic Acid Calcium Phosphorus Magnesium 1.60 L Direct Bilirubin AST ALT Alkaline Phosphatase Lactate Dehydrogenase Troponin T C-Reactive Protein Total Protein Albumin Prealbumin Triglycerides Cholesterol LDL Cholesterol Direct HDL Cholesterol Urine pH Urine WBC (Auto) Urine Creatinine Urine Total Protein Fluid Total Protein Vancomycin Trough Rheumatoid Factor Complement C4 Miscellaneous Test Crossmatch 11/24/16 11/24/16 11/24/16 06:43 08:08 08:08 WBC 11.2 H RBC 2.47 L Hgb 6.8 L Hct 20.6 L MCV MCH MCHC RDW 17.0 H Plt Count Lymph % (Auto) [place] % (Auto) 10.3 H Lymph # [place] # 1.2 H Baso # Seg Neutrophils % Seg Neuts % (Manual) Lymphocytes % (Manual) Monocytes % (Manual) Eosinophils % (Manual) Basophils % (Manual) Nucleated RBC % Seg Neutrophils # Seg Neutrophils # Man Lymphocytes # (Manual) Monocytes # (Manual) Eosinophils # (Manual) Basophils # (Manual) PT INR Fibrinogen dRVVT Confirm Interp Factor V Activity POC ABG pH POC ABG pCO2 POC ABG pO2 ABG pO2 ABG HCO3 ABG Base Excess ABG Hemoglobin Oxyhemoglobin Sodium 135 L Potassium Chloride 96.3 L Carbon Dioxide BUN 61 H Creatinine 3.1 H Glucose POC Glucose 62 L Lactic Acid Calcium 8.2 L Phosphorus Magnesium Direct Bilirubin AST ALT Alkaline Phosphatase Lactate Dehydrogenase Troponin T C-Reactive Protein Total Protein Albumin Prealbumin Triglycerides Cholesterol LDL Cholesterol Direct HDL Cholesterol Urine pH Urine WBC (Auto) Urine Creatinine Urine Total Protein Fluid Total Protein Vancomycin Trough Rheumatoid Factor Complement C4 Miscellaneous Test Crossmatch 11/24/16 11/24/16 11/24/16 08:34 11:20 12:41 WBC RBC Hgb Hct MCV MCH MCHC RDW Plt Count Lymph % (Auto) [place] % (Auto) Lymph # [place] # Baso # Seg Neutrophils % Seg Neuts % (Manual) Lymphocytes % (Manual) Monocytes % (Manual) Eosinophils % (Manual) Basophils % (Manual) Nucleated RBC % Seg Neutrophils # Seg Neutrophils # Man Lymphocytes # (Manual) Monocytes # (Manual) Eosinophils # (Manual) Basophils # (Manual) PT INR Fibrinogen dRVVT Confirm Interp Factor V Activity POC ABG pH POC ABG pCO2 POC ABG pO2 ABG pO2 ABG HCO3 ABG Base Excess ABG Hemoglobin Oxyhemoglobin Sodium Potassium Chloride Carbon Dioxide BUN Creatinine Glucose POC Glucose 108 H Lactic Acid Calcium Phosphorus Magnesium 1.60 L Direct Bilirubin AST ALT Alkaline Phosphatase Lactate Dehydrogenase Troponin T C-Reactive Protein Total Protein Albumin Prealbumin Triglycerides Cholesterol LDL Cholesterol Direct HDL Cholesterol Urine pH Urine WBC (Auto) Urine Creatinine Urine Total Protein Fluid Total Protein Vancomycin Trough Rheumatoid Factor Complement C4 Miscellaneous Test Crossmatch See Detail 11/25/16 11/25/16 11/25/16 00:03 04:42 04:42 WBC RBC 3.03 L Hgb 8.6 L Hct 25.3 L MCV MCH MCHC RDW 16.2 H Plt Count Lymph % (Auto) [place] % (Auto) 8.1 H Lymph # [place] # Baso # Seg Neutrophils % 71.3 H Seg Neuts % (Manual) Lymphocytes % (Manual) Monocytes % (Manual) Eosinophils % (Manual) Basophils % (Manual) Nucleated RBC % Seg Neutrophils # Seg Neutrophils # Man Lymphocytes # (Manual) Monocytes # (Manual) Eosinophils # (Manual) Basophils # (Manual) PT INR Fibrinogen dRVVT Confirm Interp Factor V Activity POC ABG pH POC ABG pCO2 POC ABG pO2 ABG pO2 ABG HCO3 ABG Base Excess ABG Hemoglobin Oxyhemoglobin Sodium Potassium Chloride Carbon Dioxide BUN 61 H Creatinine 3.0 H Glucose 102 H POC Glucose 113 H Lactic Acid Calcium 8.2 L Phosphorus Magnesium Direct Bilirubin AST ALT Alkaline Phosphatase 142 H Lactate Dehydrogenase Troponin T C-Reactive Protein Total Protein 5.7 L Albumin 1.5 L Prealbumin Triglycerides Cholesterol LDL Cholesterol Direct HDL Cholesterol Urine pH Urine WBC (Auto) Urine Creatinine Urine Total Protein Fluid Total Protein Vancomycin Trough Rheumatoid Factor Complement C4 Miscellaneous Test Crossmatch 11/25/16 11/25/16 11/25/16 05:12 11:31 14:12 WBC RBC Hgb Hct MCV MCH MCHC RDW Plt Count Lymph % (Auto) [place] % (Auto) Lymph # [place] # Baso # Seg Neutrophils % Seg Neuts % (Manual) Lymphocytes % (Manual) Monocytes % (Manual) Eosinophils % (Manual) Basophils % (Manual) Nucleated RBC % Seg Neutrophils # Seg Neutrophils # Man Lymphocytes # (Manual) Monocytes # (Manual) Eosinophils # (Manual) Basophils # (Manual) PT INR Fibrinogen dRVVT Confirm Interp Factor V Activity POC ABG pH 7.487 H POC ABG pCO2 POC ABG pO2 153 H ABG pO2 ABG HCO3 ABG Base Excess ABG Hemoglobin Oxyhemoglobin Sodium Potassium Chloride Carbon Dioxide BUN Creatinine Glucose POC Glucose 131 H 140 H Lactic Acid Calcium Phosphorus Magnesium Direct Bilirubin AST ALT Alkaline Phosphatase Lactate Dehydrogenase Troponin T C-Reactive Protein Total Protein Albumin Prealbumin Triglycerides Cholesterol LDL Cholesterol Direct HDL Cholesterol Urine pH Urine WBC (Auto) Urine Creatinine Urine Total Protein Fluid Total Protein Vancomycin Trough Rheumatoid Factor Complement C4 Miscellaneous Test Crossmatch 11/25/16 11/26/16 11/26/16 17:23 00:09 05:13 WBC RBC 2.94 L Hgb 8.4 L Hct 24.6 L MCV MCH MCHC RDW 16.4 H Plt Count Lymph % (Auto) [place] % (Auto) 12.3 H Lymph # [place] # 1.1 H Baso # Seg Neutrophils % Seg Neuts % (Manual) Lymphocytes % (Manual) Monocytes % (Manual) Eosinophils % (Manual) Basophils % (Manual) Nucleated RBC % Seg Neutrophils # Seg Neutrophils # Man Lymphocytes # (Manual) Monocytes # (Manual) Eosinophils # (Manual) Basophils # (Manual) PT INR Fibrinogen dRVVT Confirm Interp Factor V Activity POC ABG pH POC ABG pCO2 POC ABG pO2 ABG pO2 ABG HCO3 ABG Base Excess ABG Hemoglobin Oxyhemoglobin Sodium Potassium Chloride Carbon Dioxide BUN Creatinine Glucose POC Glucose 146 H 112 H Lactic Acid Calcium Phosphorus Magnesium Direct Bilirubin AST ALT Alkaline Phosphatase Lactate Dehydrogenase Troponin T C-Reactive Protein Total Protein Albumin Prealbumin Triglycerides Cholesterol LDL Cholesterol Direct HDL Cholesterol Urine pH Urine WBC (Auto) Urine Creatinine Urine Total Protein Fluid Total Protein Vancomycin Trough Rheumatoid Factor Complement C4 Miscellaneous Test Crossmatch 11/26/16 11/26/16 11/26/16 05:13 05:28 11:53 WBC RBC Hgb Hct MCV MCH MCHC RDW Plt Count Lymph % (Auto) [place] % (Auto) Lymph # [place] # Baso # Seg Neutrophils % Seg Neuts % (Manual) Lymphocytes % (Manual) Monocytes % (Manual) Eosinophils % (Manual) Basophils % (Manual) Nucleated RBC % Seg Neutrophils # Seg Neutrophils # Man Lymphocytes # (Manual) Monocytes # (Manual) Eosinophils # (Manual) Basophils # (Manual) PT INR Fibrinogen dRVVT Confirm Interp Factor V Activity POC ABG pH POC ABG pCO2 POC ABG pO2 ABG pO2 ABG HCO3 ABG Base Excess ABG Hemoglobin Oxyhemoglobin Sodium Potassium Chloride 97.8 L Carbon Dioxide BUN 37 H Creatinine 2.0 H Glucose 109 H POC Glucose 117 H 111 H Lactic Acid Calcium 7.9 L Phosphorus 1.80 L D Magnesium Direct Bilirubin AST ALT Alkaline Phosphatase Lactate Dehydrogenase Troponin T C-Reactive Protein Total Protein Albumin Prealbumin Triglycerides Cholesterol LDL Cholesterol Direct HDL Cholesterol Urine pH Urine WBC (Auto) Urine Creatinine Urine Total Protein Fluid Total Protein Vancomycin Trough Rheumatoid Factor Complement C4 Miscellaneous Test Crossmatch 11/26/16 11/27/16 11/27/16 17:14 04:50 06:02 WBC RBC Hgb Hct MCV MCH MCHC RDW Plt Count Lymph % (Auto) [place] % (Auto) Lymph # [place] # Baso # Seg Neutrophils % Seg Neuts % (Manual) Lymphocytes % (Manual) Monocytes % (Manual) Eosinophils % (Manual) Basophils % (Manual) Nucleated RBC % Seg Neutrophils # Seg Neutrophils # Man Lymphocytes # (Manual) Monocytes # (Manual) Eosinophils # (Manual) Basophils # (Manual) PT INR Fibrinogen dRVVT Confirm Interp Factor V Activity POC ABG pH POC ABG pCO2 POC ABG pO2 ABG pO2 75.2 L ABG HCO3 26.4 H ABG Base Excess ABG Hemoglobin 7.6 L Oxyhemoglobin 94.8 L Sodium Potassium Chloride Carbon Dioxide BUN 49 H Creatinine 2.3 H Glucose POC Glucose 115 H Lactic Acid Calcium Phosphorus 1.50 L Magnesium Direct Bilirubin AST ALT Alkaline Phosphatase Lactate Dehydrogenase Troponin T C-Reactive Protein Total Protein Albumin Prealbumin Triglycerides Cholesterol LDL Cholesterol Direct HDL Cholesterol Urine pH Urine WBC (Auto) Urine Creatinine Urine Total Protein Fluid Total Protein Vancomycin Trough Rheumatoid Factor Complement C4 Miscellaneous Test Crossmatch 11/27/16 11/27/16 11/27/16 06:02 11:25 17:25 WBC 11.6 H RBC 2.75 L Hgb 7.6 L Hct 23.4 L MCV MCH MCHC RDW 16.5 H Plt Count Lymph % (Auto) [place] % (Auto) Lymph # [place] # Baso # Seg Neutrophils % Seg Neuts % (Manual) Lymphocytes % (Manual) Monocytes % (Manual) Eosinophils % (Manual) Basophils % (Manual) Nucleated RBC % Seg Neutrophils # Seg Neutrophils # Man Lymphocytes # (Manual) Monocytes # (Manual) Eosinophils # (Manual) Basophils # (Manual) PT INR Fibrinogen dRVVT Confirm Interp Factor V Activity POC ABG pH POC ABG pCO2 POC ABG pO2 ABG pO2 ABG HCO3 ABG Base Excess ABG Hemoglobin Oxyhemoglobin Sodium Potassium Chloride Carbon Dioxide BUN Creatinine Glucose POC Glucose 114 H 126 H Lactic Acid Calcium Phosphorus Magnesium Direct Bilirubin AST ALT Alkaline Phosphatase Lactate Dehydrogenase Troponin T C-Reactive Protein Total Protein Albumin Prealbumin Triglycerides Cholesterol LDL Cholesterol Direct HDL Cholesterol Urine pH Urine WBC (Auto) Urine Creatinine Urine Total Protein Fluid Total Protein Vancomycin Trough Rheumatoid Factor Complement C4 Miscellaneous Test Crossmatch 11/28/16 11/28/16 11/28/16 04:45 05:33 05:44 WBC RBC Hgb Hct MCV MCH MCHC RDW Plt Count Lymph % (Auto) [place] % (Auto) Lymph # [place] # Baso # Seg Neutrophils % Seg Neuts % (Manual) Lymphocytes % (Manual) Monocytes % (Manual) Eosinophils % (Manual) Basophils % (Manual) Nucleated RBC % Seg Neutrophils # Seg Neutrophils # Man Lymphocytes # (Manual) Monocytes # (Manual) Eosinophils # (Manual) Basophils # (Manual) PT INR Fibrinogen dRVVT Confirm Interp Factor V Activity POC ABG pH POC ABG pCO2 POC ABG pO2 ABG pO2 99.3 H ABG HCO3 ABG Base Excess ABG Hemoglobin 8.3 L Oxyhemoglobin Sodium Potassium Chloride Carbon Dioxide BUN 63 H Creatinine 2.4 H Glucose 102 H POC Glucose 108 H Lactic Acid Calcium Phosphorus 1.80 L Magnesium Direct Bilirubin AST ALT Alkaline Phosphatase Lactate Dehydrogenase Troponin T C-Reactive Protein Total Protein Albumin Prealbumin Triglycerides Cholesterol LDL Cholesterol Direct HDL Cholesterol Urine pH Urine WBC (Auto) Urine Creatinine Urine Total Protein Fluid Total Protein Vancomycin Trough Rheumatoid Factor Complement C4 Miscellaneous Test Crossmatch 11/28/16 11/28/16 11/28/16 12:31 16:09 23:46 WBC RBC Hgb Hct MCV MCH MCHC RDW Plt Count Lymph % (Auto) [place] % (Auto) Lymph # [place] # Baso # Seg Neutrophils % Seg Neuts % (Manual) Lymphocytes % (Manual) Monocytes % (Manual) Eosinophils % (Manual) Basophils % (Manual) Nucleated RBC % Seg Neutrophils # Seg Neutrophils # Man Lymphocytes # (Manual) Monocytes # (Manual) Eosinophils # (Manual) Basophils # (Manual) PT INR Fibrinogen dRVVT Confirm Interp Factor V Activity POC ABG pH POC ABG pCO2 POC ABG pO2 ABG pO2 ABG HCO3 ABG Base Excess ABG Hemoglobin Oxyhemoglobin Sodium Potassium Chloride Carbon Dioxide BUN Creatinine Glucose POC Glucose 126 H 111 H 119 H Lactic Acid Calcium Phosphorus Magnesium Direct Bilirubin AST ALT Alkaline Phosphatase Lactate Dehydrogenase Troponin T C-Reactive Protein Total Protein Albumin Prealbumin Triglycerides Cholesterol LDL Cholesterol Direct HDL Cholesterol Urine pH Urine WBC (Auto) Urine Creatinine Urine Total Protein Fluid Total Protein Vancomycin Trough Rheumatoid Factor Complement C4 Miscellaneous Test Crossmatch 11/29/16 11/29/16 11/29/16 03:33 04:52 05:10 WBC RBC Hgb Hct MCV MCH MCHC RDW Plt Count Lymph % (Auto) [place] % (Auto) Lymph # [place] # Baso # Seg Neutrophils % Seg Neuts % (Manual) Lymphocytes % (Manual) Monocytes % (Manual) Eosinophils % (Manual) Basophils % (Manual) Nucleated RBC % Seg Neutrophils # Seg Neutrophils # Man Lymphocytes # (Manual) Monocytes # (Manual) Eosinophils # (Manual) Basophils # (Manual) PT INR Fibrinogen dRVVT Confirm Interp Factor V Activity POC ABG pH POC ABG pCO2 POC ABG pO2 ABG pO2 ABG HCO3 ABG Base Excess ABG Hemoglobin 7.0 L Oxyhemoglobin 94.9 L Sodium Potassium Chloride Carbon Dioxide BUN 73 H Creatinine 2.7 H Glucose POC Glucose 108 H Lactic Acid Calcium Phosphorus Magnesium Direct Bilirubin AST ALT Alkaline Phosphatase Lactate Dehydrogenase Troponin T C-Reactive Protein Total Protein Albumin Prealbumin Triglycerides Cholesterol LDL Cholesterol Direct HDL Cholesterol Urine pH Urine WBC (Auto) Urine Creatinine Urine Total Protein Fluid Total Protein Vancomycin Trough Rheumatoid Factor Complement C4 Miscellaneous Test Crossmatch 11/29/16 11/29/16 11/29/16 12:16 18:05 23:46 WBC RBC Hgb Hct MCV MCH MCHC RDW Plt Count Lymph % (Auto) [place] % (Auto) Lymph # [place] # Baso # Seg Neutrophils % Seg Neuts % (Manual) Lymphocytes % (Manual) Monocytes % (Manual) Eosinophils % (Manual) Basophils % (Manual) Nucleated RBC % Seg Neutrophils # Seg Neutrophils # Man Lymphocytes # (Manual) Monocytes # (Manual) Eosinophils # (Manual) Basophils # (Manual) PT INR Fibrinogen dRVVT Confirm Interp Factor V Activity POC ABG pH POC ABG pCO2 POC ABG pO2 ABG pO2 ABG HCO3 ABG Base Excess ABG Hemoglobin Oxyhemoglobin Sodium Potassium Chloride Carbon Dioxide BUN Creatinine Glucose POC Glucose 133 H 146 H 141 H Lactic Acid Calcium Phosphorus Magnesium Direct Bilirubin AST ALT Alkaline Phosphatase Lactate Dehydrogenase Troponin T C-Reactive Protein Total Protein Albumin Prealbumin Triglycerides Cholesterol LDL Cholesterol Direct HDL Cholesterol Urine pH Urine WBC (Auto) Urine Creatinine Urine Total Protein Fluid Total Protein Vancomycin Trough Rheumatoid Factor Complement C4 Miscellaneous Test Crossmatch 11/30/16 11/30/16 11/30/16 04:17 04:17 04:32 WBC 12.0 H RBC 2.80 L Hgb 7.8 L Hct 23.6 L MCV MCH MCHC RDW 16.6 H Plt Count Lymph % (Auto) [place] % (Auto) 11.3 H Lymph # [place] # 1.4 H Baso # Seg Neutrophils % Seg Neuts % (Manual) Lymphocytes % (Manual) Monocytes % (Manual) Eosinophils % (Manual) Basophils % (Manual) Nucleated RBC % Seg Neutrophils # 8.2 H Seg Neutrophils # Man Lymphocytes # (Manual) Monocytes # (Manual) Eosinophils # (Manual) Basophils # (Manual) PT INR Fibrinogen dRVVT Confirm Interp Factor V Activity POC ABG pH POC ABG pCO2 POC ABG pO2 ABG pO2 ABG HCO3 ABG Base Excess ABG Hemoglobin Oxyhemoglobin Sodium 169 H* D Potassium 5.1 H Chloride 121.5 H Carbon Dioxide BUN 34 H Creatinine 1.3 H D Glucose 133 H POC Glucose 131 H Lactic Acid Calcium 10.3 H Phosphorus Magnesium Direct Bilirubin AST ALT Alkaline Phosphatase Lactate Dehydrogenase Troponin T C-Reactive Protein Total Protein Albumin Prealbumin Triglycerides Cholesterol LDL Cholesterol Direct HDL Cholesterol Urine pH Urine WBC (Auto) Urine Creatinine Urine Total Protein Fluid Total Protein Vancomycin Trough Rheumatoid Factor Complement C4 Miscellaneous Test Crossmatch 11/30/16 11/30/16 11/30/16 05:45 11:10 17:26 WBC RBC Hgb Hct MCV MCH MCHC RDW Plt Count Lymph % (Auto) [place] % (Auto) Lymph # [place] # Baso # Seg Neutrophils % Seg Neuts % (Manual) Lymphocytes % (Manual) Monocytes % (Manual) Eosinophils % (Manual) Basophils % (Manual) Nucleated RBC % Seg Neutrophils # Seg Neutrophils # Man Lymphocytes # (Manual) Monocytes # (Manual) Eosinophils # (Manual) Basophils # (Manual) PT INR Fibrinogen dRVVT Confirm Interp Factor V Activity POC ABG pH POC ABG pCO2 POC ABG pO2 ABG pO2 ABG HCO3 ABG Base Excess ABG Hemoglobin Oxyhemoglobin Sodium Potassium Chloride Carbon Dioxide BUN 45 H Creatinine 1.6 H Glucose 131 H POC Glucose 146 H 134 H Lactic Acid Calcium Phosphorus Magnesium Direct Bilirubin AST ALT Alkaline Phosphatase Lactate Dehydrogenase Troponin T C-Reactive Protein Total Protein Albumin Prealbumin Triglycerides Cholesterol LDL Cholesterol Direct HDL Cholesterol Urine pH Urine WBC (Auto) Urine Creatinine Urine Total Protein Fluid Total Protein Vancomycin Trough Rheumatoid Factor Complement C4 Miscellaneous Test Crossmatch 11/30/16 12/01/16 12/01/16 23:35 00:06 03:35 WBC RBC Hgb Hct MCV MCH MCHC RDW Plt Count Lymph % (Auto) [place] % (Auto) Lymph # [place] # Baso # Seg Neutrophils % Seg Neuts % (Manual) Lymphocytes % (Manual) Monocytes % (Manual) Eosinophils % (Manual) Basophils % (Manual) Nucleated RBC % Seg Neutrophils # Seg Neutrophils # Man Lymphocytes # (Manual) Monocytes # (Manual) Eosinophils # (Manual) Basophils # (Manual) PT INR Fibrinogen dRVVT Confirm Interp Factor V Activity POC ABG pH POC ABG pCO2 POC ABG pO2 ABG pO2 ABG HCO3 ABG Base Excess ABG Hemoglobin 6.9 L Oxyhemoglobin Sodium Potassium Chloride Carbon Dioxide BUN 58 H Creatinine 1.8 H Glucose 146 H POC Glucose 151 H Lactic Acid Calcium Phosphorus Magnesium Direct Bilirubin AST ALT Alkaline Phosphatase Lactate Dehydrogenase Troponin T C-Reactive Protein Total Protein Albumin Prealbumin Triglycerides Cholesterol LDL Cholesterol Direct HDL Cholesterol Urine pH Urine WBC (Auto) Urine Creatinine Urine Total Protein Fluid Total Protein Vancomycin Trough Rheumatoid Factor Complement C4 Miscellaneous Test Crossmatch 12/01/16 12/01/16 12/01/16 03:35 05:47 11:52 WBC 12.3 H RBC 2.82 L Hgb 7.8 L Hct 23.7 L MCV MCH MCHC RDW 16.7 H Plt Count Lymph % (Auto) [place] % (Auto) 9.8 H Lymph # [place] # 1.2 H Baso # Seg Neutrophils % Seg Neuts % (Manual) Lymphocytes % (Manual) Monocytes % (Manual) Eosinophils % (Manual) Basophils % (Manual) Nucleated RBC % Seg Neutrophils # 8.4 H Seg Neutrophils # Man Lymphocytes # (Manual) Monocytes # (Manual) Eosinophils # (Manual) Basophils # (Manual) PT INR Fibrinogen dRVVT Confirm Interp Factor V Activity POC ABG pH POC ABG pCO2 POC ABG pO2 ABG pO2 ABG HCO3 ABG Base Excess ABG Hemoglobin Oxyhemoglobin Sodium Potassium Chloride Carbon Dioxide BUN Creatinine Glucose POC Glucose 152 H 152 H Lactic Acid Calcium Phosphorus Magnesium Direct Bilirubin AST ALT Alkaline Phosphatase Lactate Dehydrogenase Troponin T C-Reactive Protein Total Protein Albumin Prealbumin Triglycerides Cholesterol LDL Cholesterol Direct HDL Cholesterol Urine pH Urine WBC (Auto) Urine Creatinine Urine Total Protein Fluid Total Protein Vancomycin Trough Rheumatoid Factor Complement C4 Miscellaneous Test Crossmatch 12/01/16 12/01/16 12/02/16 17:40 23:41 05:00 WBC RBC Hgb Hct MCV MCH MCHC RDW Plt Count Lymph % (Auto) [place] % (Auto) Lymph # [place] # Baso # Seg Neutrophils % Seg Neuts % (Manual) Lymphocytes % (Manual) Monocytes % (Manual) Eosinophils % (Manual) Basophils % (Manual) Nucleated RBC % Seg Neutrophils # Seg Neutrophils # Man Lymphocytes # (Manual) Monocytes # (Manual) Eosinophils # (Manual) Basophils # (Manual) PT INR Fibrinogen dRVVT Confirm Interp Factor V Activity POC ABG pH POC ABG pCO2 POC ABG pO2 ABG pO2 ABG HCO3 ABG Base Excess ABG Hemoglobin Oxyhemoglobin Sodium Potassium Chloride Carbon Dioxide BUN 45 H Creatinine Glucose 115 H POC Glucose 140 H 144 H Lactic Acid Calcium Phosphorus Magnesium Direct Bilirubin AST ALT Alkaline Phosphatase Lactate Dehydrogenase Troponin T C-Reactive Protein Total Protein Albumin Prealbumin Triglycerides Cholesterol LDL Cholesterol Direct HDL Cholesterol Urine pH Urine WBC (Auto) Urine Creatinine Urine Total Protein Fluid Total Protein Vancomycin Trough Rheumatoid Factor Complement C4 Miscellaneous Test Crossmatch 12/02/16 12/02/16 12/02/16 05:31 11:20 17:38 WBC RBC Hgb Hct MCV MCH MCHC RDW Plt Count Lymph % (Auto) [place] % (Auto) Lymph # [place] # Baso # Seg Neutrophils % Seg Neuts % (Manual) Lymphocytes % (Manual) Monocytes % (Manual) Eosinophils % (Manual) Basophils % (Manual) Nucleated RBC % Seg Neutrophils # Seg Neutrophils # Man Lymphocytes # (Manual) Monocytes # (Manual) Eosinophils # (Manual) Basophils # (Manual) PT INR Fibrinogen dRVVT Confirm Interp Factor V Activity POC ABG pH POC ABG pCO2 POC ABG pO2 ABG pO2 ABG HCO3 ABG Base Excess ABG Hemoglobin Oxyhemoglobin Sodium Potassium Chloride Carbon Dioxide BUN Creatinine Glucose POC Glucose 136 H 177 H 139 H Lactic Acid Calcium Phosphorus Magnesium Direct Bilirubin AST ALT Alkaline Phosphatase Lactate Dehydrogenase Troponin T C-Reactive Protein Total Protein Albumin Prealbumin Triglycerides Cholesterol LDL Cholesterol Direct HDL Cholesterol Urine pH Urine WBC (Auto) Urine Creatinine Urine Total Protein Fluid Total Protein Vancomycin Trough Rheumatoid Factor Complement C4 Miscellaneous Test Crossmatch 12/02/16 12/03/16 12/03/16 23:43 04:00 04:00 WBC 20.4 H RBC 2.74 L Hgb 7.4 L Hct 23.6 L MCV MCH 27 L MCHC RDW 17.1 H Plt Count Lymph % (Auto) [place] % (Auto) Lymph # [place] # Baso # Seg Neutrophils % Seg Neuts % (Manual) 31.0 L Lymphocytes % (Manual) Monocytes % (Manual) Eosinophils % (Manual) Basophils % (Manual) Nucleated RBC % Seg Neutrophils # Seg Neutrophils # Man Lymphocytes # (Manual) Monocytes # (Manual) Eosinophils # (Manual) Basophils # (Manual) PT INR Fibrinogen dRVVT Confirm Interp Factor V Activity POC ABG pH POC ABG pCO2 POC ABG pO2 ABG pO2 ABG HCO3 ABG Base Excess ABG Hemoglobin Oxyhemoglobin Sodium Potassium Chloride Carbon Dioxide BUN 61 H Creatinine 1.6 H Glucose 119 H POC Glucose 158 H Lactic Acid Calcium Phosphorus Magnesium Direct Bilirubin AST ALT Alkaline Phosphatase Lactate Dehydrogenase Troponin T C-Reactive Protein Total Protein Albumin Prealbumin Triglycerides Cholesterol LDL Cholesterol Direct HDL Cholesterol Urine pH Urine WBC (Auto) Urine Creatinine Urine Total Protein Fluid Total Protein Vancomycin Trough Rheumatoid Factor Complement C4 Miscellaneous Test Crossmatch 12/03/16 12/03/16 12/03/16 05:02 12:11 18:16 WBC RBC Hgb Hct MCV MCH MCHC RDW Plt Count Lymph % (Auto) [place] % (Auto) Lymph # [place] # Baso # Seg Neutrophils % Seg Neuts % (Manual) Lymphocytes % (Manual) Monocytes % (Manual) Eosinophils % (Manual) Basophils % (Manual) Nucleated RBC % Seg Neutrophils # Seg Neutrophils # Man Lymphocytes # (Manual) Monocytes # (Manual) Eosinophils # (Manual) Basophils # (Manual) PT INR Fibrinogen dRVVT Confirm Interp Factor V Activity POC ABG pH POC ABG pCO2 POC ABG pO2 ABG pO2 ABG HCO3 ABG Base Excess ABG Hemoglobin Oxyhemoglobin Sodium Potassium Chloride Carbon Dioxide BUN Creatinine Glucose POC Glucose 146 H 157 H 124 H Lactic Acid Calcium Phosphorus Magnesium Direct Bilirubin AST ALT Alkaline Phosphatase Lactate Dehydrogenase Troponin T C-Reactive Protein Total Protein Albumin Prealbumin Triglycerides Cholesterol LDL Cholesterol Direct HDL Cholesterol Urine pH Urine WBC (Auto) Urine Creatinine Urine Total Protein Fluid Total Protein Vancomycin Trough Rheumatoid Factor Complement C4 Miscellaneous Test Crossmatch 12/03/16 12/04/16 12/04/16 23:41 04:00 04:45 WBC RBC Hgb Hct MCV MCH MCHC RDW Plt Count Lymph % (Auto) [place] % (Auto) Lymph # [place] # Baso # Seg Neutrophils % Seg Neuts % (Manual) Lymphocytes % (Manual) Monocytes % (Manual) Eosinophils % (Manual) Basophils % (Manual) Nucleated RBC % Seg Neutrophils # Seg Neutrophils # Man Lymphocytes # (Manual) Monocytes # (Manual) Eosinophils # (Manual) Basophils # (Manual) PT INR Fibrinogen dRVVT Confirm Interp Factor V Activity POC ABG pH POC ABG pCO2 POC ABG pO2 ABG pO2 ABG HCO3 ABG Base Excess ABG Hemoglobin Oxyhemoglobin Sodium Potassium Chloride Carbon Dioxide BUN 76 H Creatinine 1.6 H Glucose POC Glucose 130 H 136 H Lactic Acid Calcium Phosphorus Magnesium Direct Bilirubin AST ALT Alkaline Phosphatase 155 H Lactate Dehydrogenase Troponin T C-Reactive Protein Total Protein 5.5 L Albumin 1.5 L Prealbumin Triglycerides Cholesterol LDL Cholesterol Direct HDL Cholesterol Urine pH Urine WBC (Auto) Urine Creatinine Urine Total Protein Fluid Total Protein Vancomycin Trough Rheumatoid Factor Complement C4 Miscellaneous Test Crossmatch 12/04/16 12/04/16 12/05/16 12:08 17:23 00:10 WBC RBC Hgb Hct MCV MCH MCHC RDW Plt Count Lymph % (Auto) [place] % (Auto) Lymph # [place] # Baso # Seg Neutrophils % Seg Neuts % (Manual) Lymphocytes % (Manual) Monocytes % (Manual) Eosinophils % (Manual) Basophils % (Manual) Nucleated RBC % Seg Neutrophils # Seg Neutrophils # Man Lymphocytes # (Manual) Monocytes # (Manual) Eosinophils # (Manual) Basophils # (Manual) PT INR Fibrinogen dRVVT Confirm Interp Factor V Activity POC ABG pH POC ABG pCO2 POC ABG pO2 ABG pO2 ABG HCO3 ABG Base Excess ABG Hemoglobin Oxyhemoglobin Sodium Potassium Chloride Carbon Dioxide BUN Creatinine Glucose POC Glucose 114 H 129 H 124 H Lactic Acid Calcium Phosphorus Magnesium Direct Bilirubin AST ALT Alkaline Phosphatase Lactate Dehydrogenase Troponin T C-Reactive Protein Total Protein Albumin Prealbumin Triglycerides Cholesterol LDL Cholesterol Direct HDL Cholesterol Urine pH Urine WBC (Auto) Urine Creatinine Urine Total Protein Fluid Total Protein Vancomycin Trough Rheumatoid Factor Complement C4 Miscellaneous Test Crossmatch 12/05/16 12/05/16 12/05/16 05:00 05:00 05:18 WBC RBC Hgb Hct MCV MCH MCHC RDW Plt Count Lymph % (Auto) [place] % (Auto) Lymph # [place] # Baso # Seg Neutrophils % Seg Neuts % (Manual) Lymphocytes % (Manual) Monocytes % (Manual) Eosinophils % (Manual) Basophils % (Manual) Nucleated RBC % Seg Neutrophils # Seg Neutrophils # Man Lymphocytes # (Manual) Monocytes # (Manual) Eosinophils # (Manual) Basophils # (Manual) PT INR Fibrinogen dRVVT Confirm Interp Factor V Activity POC ABG pH POC ABG pCO2 POC ABG pO2 ABG pO2 ABG HCO3 ABG Base Excess ABG Hemoglobin Oxyhemoglobin Sodium Potassium Chloride Carbon Dioxide 21 L BUN 85 H Creatinine 1.9 H Glucose 131 H POC Glucose 154 H Lactic Acid Calcium Phosphorus Magnesium Direct Bilirubin AST ALT Alkaline Phosphatase Lactate Dehydrogenase Troponin T C-Reactive Protein 19.30 H Total Protein Albumin Prealbumin Triglycerides Cholesterol LDL Cholesterol Direct HDL Cholesterol Urine pH Urine WBC (Auto) Urine Creatinine Urine Total Protein Fluid Total Protein Vancomycin Trough Rheumatoid Factor Complement C4 Miscellaneous Test Crossmatch 12/05/16 12/05/16 12/05/16 11:43 17:46 23:25 WBC RBC Hgb Hct MCV MCH MCHC RDW Plt Count Lymph % (Auto) [place] % (Auto) Lymph # [place] # Baso # Seg Neutrophils % Seg Neuts % (Manual) Lymphocytes % (Manual) Monocytes % (Manual) Eosinophils % (Manual) Basophils % (Manual) Nucleated RBC % Seg Neutrophils # Seg Neutrophils # Man Lymphocytes # (Manual) Monocytes # (Manual) Eosinophils # (Manual) Basophils # (Manual) PT INR Fibrinogen dRVVT Confirm Interp Factor V Activity POC ABG pH POC ABG pCO2 POC ABG pO2 ABG pO2 ABG HCO3 ABG Base Excess ABG Hemoglobin Oxyhemoglobin Sodium Potassium Chloride Carbon Dioxide BUN Creatinine Glucose POC Glucose 117 H 113 H 111 H Lactic Acid Calcium Phosphorus Magnesium Direct Bilirubin AST ALT Alkaline Phosphatase Lactate Dehydrogenase Troponin T C-Reactive Protein Total Protein Albumin Prealbumin Triglycerides Cholesterol LDL Cholesterol Direct HDL Cholesterol Urine pH Urine WBC (Auto) Urine Creatinine Urine Total Protein Fluid Total Protein Vancomycin Trough Rheumatoid Factor Complement C4 Miscellaneous Test Crossmatch 12/05/16 12/06/16 12/06/16 Unknown 04:58 06:00 WBC RBC Hgb Hct MCV MCH MCHC RDW Plt Count Lymph % (Auto) [place] % (Auto) Lymph # [place] # Baso # Seg Neutrophils % Seg Neuts % (Manual) Lymphocytes % (Manual) Monocytes % (Manual) Eosinophils % (Manual) Basophils % (Manual) Nucleated RBC % Seg Neutrophils # Seg Neutrophils # Man Lymphocytes # (Manual) Monocytes # (Manual) Eosinophils # (Manual) Basophils # (Manual) PT INR Fibrinogen dRVVT Confirm Interp Factor V Activity POC ABG pH POC ABG pCO2 POC ABG pO2 ABG pO2 75.2 L ABG HCO3 ABG Base Excess -3.4 L ABG Hemoglobin 7.4 L Oxyhemoglobin 94.5 L Sodium Potassium Chloride Carbon Dioxide 20 L BUN 99 H Creatinine 2.1 H Glucose 126 H POC Glucose 145 H Lactic Acid Calcium Phosphorus 4.80 H Magnesium Direct Bilirubin AST ALT Alkaline Phosphatase Lactate Dehydrogenase Troponin T C-Reactive Protein Total Protein Albumin Prealbumin Triglycerides Cholesterol LDL Cholesterol Direct HDL Cholesterol Urine pH Urine WBC (Auto) Urine Creatinine Urine Total Protein Fluid Total Protein Vancomycin Trough Rheumatoid Factor Complement C4 Miscellaneous Test Crossmatch 12/06/16 12/06/16 12/06/16 06:46 11:54 17:55 WBC RBC Hgb 8.3 L Hct 26.4 L MCV MCH MCHC RDW Plt Count Lymph % (Auto) [place] % (Auto) Lymph # [place] # Baso # Seg Neutrophils % Seg Neuts % (Manual) Lymphocytes % (Manual) Monocytes % (Manual) Eosinophils % (Manual) Basophils % (Manual) Nucleated RBC % Seg Neutrophils # Seg Neutrophils # Man Lymphocytes # (Manual) Monocytes # (Manual) Eosinophils # (Manual) Basophils # (Manual) PT INR Fibrinogen dRVVT Confirm Interp Factor V Activity POC ABG pH POC ABG pCO2 POC ABG pO2 ABG pO2 ABG HCO3 ABG Base Excess ABG Hemoglobin Oxyhemoglobin Sodium Potassium Chloride Carbon Dioxide BUN Creatinine Glucose POC Glucose 126 H 157 H Lactic Acid Calcium Phosphorus Magnesium Direct Bilirubin AST ALT Alkaline Phosphatase Lactate Dehydrogenase Troponin T C-Reactive Protein Total Protein Albumin Prealbumin Triglycerides Cholesterol LDL Cholesterol Direct HDL Cholesterol Urine pH Urine WBC (Auto) Urine Creatinine Urine Total Protein Fluid Total Protein Vancomycin Trough Rheumatoid Factor Complement C4 Miscellaneous Test Crossmatch 12/06/16 12/07/16 12/07/16 23:59 05:34 06:30 WBC RBC Hgb Hct MCV MCH MCHC RDW Plt Count Lymph % (Auto) [place] % (Auto) Lymph # [place] # Baso # Seg Neutrophils % Seg Neuts % (Manual) Lymphocytes % (Manual) Monocytes % (Manual) Eosinophils % (Manual) Basophils % (Manual) Nucleated RBC % Seg Neutrophils # Seg Neutrophils # Man Lymphocytes # (Manual) Monocytes # (Manual) Eosinophils # (Manual) Basophils # (Manual) PT INR Fibrinogen dRVVT Confirm Interp Factor V Activity POC ABG pH POC ABG pCO2 POC ABG pO2 ABG pO2 ABG HCO3 ABG Base Excess ABG Hemoglobin Oxyhemoglobin Sodium Potassium Chloride Carbon Dioxide BUN 67 H Creatinine 1.4 H Glucose 126 H POC Glucose 129 H 129 H Lactic Acid Calcium Phosphorus Magnesium Direct Bilirubin AST ALT Alkaline Phosphatase Lactate Dehydrogenase Troponin T C-Reactive Protein Total Protein Albumin Prealbumin Triglycerides Cholesterol LDL Cholesterol Direct HDL Cholesterol Urine pH Urine WBC (Auto) Urine Creatinine Urine Total Protein Fluid Total Protein Vancomycin Trough Rheumatoid Factor Complement C4 Miscellaneous Test Crossmatch 12/07/16 12/07/16 12/07/16 06:30 08:00 09:45 WBC 18.8 H RBC 2.52 L Hgb 6.9 L 6.8 L Hct 21.2 L 21.1 L MCV MCH 27 L MCHC RDW 18.0 H Plt Count Lymph % (Auto) [place] % (Auto) 9.9 H Lymph # [place] # 1.9 H Baso # Seg Neutrophils % 71.8 H Seg Neuts % (Manual) Lymphocytes % (Manual) Monocytes % (Manual) Eosinophils % (Manual) Basophils % (Manual) Nucleated RBC % Seg Neutrophils # 13.5 H Seg Neutrophils # Man Lymphocytes # (Manual) Monocytes # (Manual) Eosinophils # (Manual) Basophils # (Manual) PT INR Fibrinogen dRVVT Confirm Interp Factor V Activity POC ABG pH POC ABG pCO2 POC ABG pO2 ABG pO2 ABG HCO3 ABG Base Excess ABG Hemoglobin Oxyhemoglobin Sodium Potassium Chloride Carbon Dioxide BUN Creatinine Glucose POC Glucose Lactic Acid Calcium Phosphorus Magnesium Direct Bilirubin AST ALT Alkaline Phosphatase Lactate Dehydrogenase Troponin T C-Reactive Protein Total Protein Albumin Prealbumin Triglycerides Cholesterol LDL Cholesterol Direct HDL Cholesterol Urine pH Urine WBC (Auto) Urine Creatinine Urine Total Protein Fluid Total Protein Vancomycin Trough Rheumatoid Factor Complement C4 Miscellaneous Test Crossmatch See Detail 12/07/16 12/07/16 12/07/16 11:44 18:19 23:59 WBC RBC Hgb Hct MCV MCH MCHC RDW Plt Count Lymph % (Auto) [place] % (Auto) Lymph # [place] # Baso # Seg Neutrophils % Seg Neuts % (Manual) Lymphocytes % (Manual) Monocytes % (Manual) Eosinophils % (Manual) Basophils % (Manual) Nucleated RBC % Seg Neutrophils # Seg Neutrophils # Man Lymphocytes # (Manual) Monocytes # (Manual) Eosinophils # (Manual) Basophils # (Manual) PT INR Fibrinogen dRVVT Confirm Interp Factor V Activity POC ABG pH POC ABG pCO2 POC ABG pO2 ABG pO2 ABG HCO3 ABG Base Excess ABG Hemoglobin Oxyhemoglobin Sodium Potassium Chloride Carbon Dioxide BUN Creatinine Glucose POC Glucose 137 H 138 H 133 H Lactic Acid Calcium Phosphorus Magnesium Direct Bilirubin AST ALT Alkaline Phosphatase Lactate Dehydrogenase Troponin T C-Reactive Protein Total Protein Albumin Prealbumin Triglycerides Cholesterol LDL Cholesterol Direct HDL Cholesterol Urine pH Urine WBC (Auto) Urine Creatinine Urine Total Protein Fluid Total Protein Vancomycin Trough Rheumatoid Factor Complement C4 Miscellaneous Test Crossmatch 12/08/16 12/08/16 12/08/16 05:25 05:30 05:30 WBC 23.8 H RBC 2.88 L Hgb 8.1 L Hct 24.3 L MCV MCH MCHC RDW 16.7 H Plt Count Lymph % (Auto) [place] % (Auto) Lymph # [place] # Baso # Seg Neutrophils % Seg Neuts % (Manual) 76.0 H Lymphocytes % (Manual) 9.0 L Monocytes % (Manual) 9.0 H Eosinophils % (Manual) Basophils % (Manual) Nucleated RBC % Seg Neutrophils # Seg Neutrophils # Man 18.1 H Lymphocytes # (Manual) Monocytes # (Manual) 2.1 H Eosinophils # (Manual) Basophils # (Manual) PT INR Fibrinogen dRVVT Confirm Interp Factor V Activity POC ABG pH POC ABG pCO2 POC ABG pO2 ABG pO2 ABG HCO3 ABG Base Excess ABG Hemoglobin Oxyhemoglobin Sodium Potassium Chloride Carbon Dioxide 21 L BUN 76 H Creatinine 1.6 H Glucose 133 H POC Glucose 177 H Lactic Acid Calcium Phosphorus Magnesium Direct Bilirubin AST ALT Alkaline Phosphatase Lactate Dehydrogenase Troponin T C-Reactive Protein Total Protein Albumin Prealbumin Triglycerides Cholesterol LDL Cholesterol Direct HDL Cholesterol Urine pH Urine WBC (Auto) Urine Creatinine Urine Total Protein Fluid Total Protein Vancomycin Trough Rheumatoid Factor Complement C4 Miscellaneous Test Crossmatch 12/08/16 12/08/16 12/09/16 11:45 18:00 00:00 WBC RBC Hgb Hct MCV MCH MCHC RDW Plt Count Lymph % (Auto) [place] % (Auto) Lymph # [place] # Baso # Seg Neutrophils % Seg Neuts % (Manual) Lymphocytes % (Manual) Monocytes % (Manual) Eosinophils % (Manual) Basophils % (Manual) Nucleated RBC % Seg Neutrophils # Seg Neutrophils # Man Lymphocytes # (Manual) Monocytes # (Manual) Eosinophils # (Manual) Basophils # (Manual) PT INR Fibrinogen dRVVT Confirm Interp Factor V Activity POC ABG pH POC ABG pCO2 POC ABG pO2 ABG pO2 ABG HCO3 ABG Base Excess ABG Hemoglobin Oxyhemoglobin Sodium Potassium Chloride Carbon Dioxide BUN Creatinine Glucose POC Glucose 163 H 123 H 137 H Lactic Acid Calcium Phosphorus Magnesium Direct Bilirubin AST ALT Alkaline Phosphatase Lactate Dehydrogenase Troponin T C-Reactive Protein Total Protein Albumin Prealbumin Triglycerides Cholesterol LDL Cholesterol Direct HDL Cholesterol Urine pH Urine WBC (Auto) Urine Creatinine Urine Total Protein Fluid Total Protein Vancomycin Trough Rheumatoid Factor Complement C4 Miscellaneous Test Crossmatch 12/09/16 12/09/16 12/09/16 05:34 06:00 06:00 WBC 15.5 H RBC 2.87 L Hgb 8.0 L Hct 24.2 L MCV MCH MCHC RDW 17.2 H Plt Count Lymph % (Auto) [place] % (Auto) 11.6 H Lymph # [place] # 1.8 H Baso # Seg Neutrophils % 70.8 H Seg Neuts % (Manual) Lymphocytes % (Manual) Monocytes % (Manual) Eosinophils % (Manual) Basophils % (Manual) Nucleated RBC % Seg Neutrophils # 11.0 H Seg Neutrophils # Man Lymphocytes # (Manual) Monocytes # (Manual) Eosinophils # (Manual) Basophils # (Manual) PT INR Fibrinogen dRVVT Confirm Interp Factor V Activity POC ABG pH POC ABG pCO2 POC ABG pO2 ABG pO2 ABG HCO3 ABG Base Excess ABG Hemoglobin Oxyhemoglobin Sodium Potassium Chloride Carbon Dioxide BUN 51 H Creatinine Glucose 117 H POC Glucose 136 H Lactic Acid Calcium Phosphorus Magnesium Direct Bilirubin AST ALT Alkaline Phosphatase Lactate Dehydrogenase Troponin T C-Reactive Protein Total Protein Albumin Prealbumin Triglycerides Cholesterol LDL Cholesterol Direct HDL Cholesterol Urine pH Urine WBC (Auto) Urine Creatinine Urine Total Protein Fluid Total Protein Vancomycin Trough Rheumatoid Factor Complement C4 Miscellaneous Test Crossmatch 12/09/16 12/09/16 12/09/16 12:29 17:52 23:10 WBC RBC Hgb Hct MCV MCH MCHC RDW Plt Count Lymph % (Auto) [place] % (Auto) Lymph # [place] # Baso # Seg Neutrophils % Seg Neuts % (Manual) Lymphocytes % (Manual) Monocytes % (Manual) Eosinophils % (Manual) Basophils % (Manual) Nucleated RBC % Seg Neutrophils # Seg Neutrophils # Man Lymphocytes # (Manual) Monocytes # (Manual) Eosinophils # (Manual) Basophils # (Manual) PT INR Fibrinogen dRVVT Confirm Interp Factor V Activity POC ABG pH POC ABG pCO2 POC ABG pO2 ABG pO2 ABG HCO3 ABG Base Excess ABG Hemoglobin Oxyhemoglobin Sodium Potassium Chloride Carbon Dioxide BUN Creatinine Glucose POC Glucose 139 H 140 H 129 H Lactic Acid Calcium Phosphorus Magnesium Direct Bilirubin AST ALT Alkaline Phosphatase Lactate Dehydrogenase Troponin T C-Reactive Protein Total Protein Albumin Prealbumin Triglycerides Cholesterol LDL Cholesterol Direct HDL Cholesterol Urine pH Urine WBC (Auto) Urine Creatinine Urine Total Protein Fluid Total Protein Vancomycin Trough Rheumatoid Factor Complement C4 Miscellaneous Test Crossmatch 12/10/16 12/10/16 12/10/16 05:00 05:00 06:54 WBC 15.7 H RBC 2.87 L Hgb 8.2 L Hct 24.4 L MCV MCH MCHC RDW 17.2 H Plt Count Lymph % (Auto) [place] % (Auto) 8.3 H Lymph # [place] # 1.3 H Baso # Seg Neutrophils % 72.8 H Seg Neuts % (Manual) Lymphocytes % (Manual) Monocytes % (Manual) Eosinophils % (Manual) Basophils % (Manual) Nucleated RBC % Seg Neutrophils # 11.4 H Seg Neutrophils # Man Lymphocytes # (Manual) Monocytes # (Manual) Eosinophils # (Manual) Basophils # (Manual) PT INR Fibrinogen dRVVT Confirm Interp Factor V Activity POC ABG pH POC ABG pCO2 POC ABG pO2 ABG pO2 ABG HCO3 ABG Base Excess ABG Hemoglobin Oxyhemoglobin Sodium Potassium Chloride Carbon Dioxide BUN 64 H Creatinine 1.4 H Glucose 134 H POC Glucose 154 H Lactic Acid Calcium Phosphorus Magnesium Direct Bilirubin AST ALT Alkaline Phosphatase Lactate Dehydrogenase Troponin T C-Reactive Protein Total Protein Albumin Prealbumin Triglycerides Cholesterol LDL Cholesterol Direct HDL Cholesterol Urine pH Urine WBC (Auto) Urine Creatinine Urine Total Protein Fluid Total Protein Vancomycin Trough Rheumatoid Factor Complement C4 Miscellaneous Test Crossmatch 12/10/16 12/10/16 12/10/16 11:58 17:29 23:52 WBC RBC Hgb Hct MCV MCH MCHC RDW Plt Count Lymph % (Auto) [place] % (Auto) Lymph # [place] # Baso # Seg Neutrophils % Seg Neuts % (Manual) Lymphocytes % (Manual) Monocytes % (Manual) Eosinophils % (Manual) Basophils % (Manual) Nucleated RBC % Seg Neutrophils # Seg Neutrophils # Man Lymphocytes # (Manual) Monocytes # (Manual) Eosinophils # (Manual) Basophils # (Manual) PT INR Fibrinogen dRVVT Confirm Interp Factor V Activity POC ABG pH POC ABG pCO2 POC ABG pO2 ABG pO2 ABG HCO3 ABG Base Excess ABG Hemoglobin Oxyhemoglobin Sodium Potassium Chloride Carbon Dioxide BUN Creatinine Glucose POC Glucose 144 H 163 H 125 H Lactic Acid Calcium Phosphorus Magnesium Direct Bilirubin AST ALT Alkaline Phosphatase Lactate Dehydrogenase Troponin T C-Reactive Protein Total Protein Albumin Prealbumin Triglycerides Cholesterol LDL Cholesterol Direct HDL Cholesterol Urine pH Urine WBC (Auto) Urine Creatinine Urine Total Protein Fluid Total Protein Vancomycin Trough Rheumatoid Factor Complement C4 Miscellaneous Test Crossmatch 12/11/16 12/11/16 12/11/16 05:38 06:30 06:30 WBC 14.4 H RBC 2.76 L Hgb 7.7 L Hct 23.4 L MCV MCH MCHC RDW 17.2 H Plt Count Lymph % (Auto) [place] % (Auto) 8.8 H Lymph # [place] # 1.3 H Baso # Seg Neutrophils % 72.5 H Seg Neuts % (Manual) Lymphocytes % (Manual) Monocytes % (Manual) Eosinophils % (Manual) Basophils % (Manual) Nucleated RBC % Seg Neutrophils # 10.5 H Seg Neutrophils # Man Lymphocytes # (Manual) Monocytes # (Manual) Eosinophils # (Manual) Basophils # (Manual) PT INR Fibrinogen dRVVT Confirm Interp Factor V Activity POC ABG pH POC ABG pCO2 POC ABG pO2 ABG pO2 ABG HCO3 ABG Base Excess ABG Hemoglobin Oxyhemoglobin Sodium Potassium Chloride Carbon Dioxide BUN 43 H Creatinine Glucose 124 H POC Glucose 141 H Lactic Acid Calcium 8.3 L Phosphorus Magnesium 1.60 L Direct Bilirubin AST ALT Alkaline Phosphatase Lactate Dehydrogenase Troponin T C-Reactive Protein Total Protein Albumin Prealbumin Triglycerides Cholesterol LDL Cholesterol Direct HDL Cholesterol Urine pH Urine WBC (Auto) Urine Creatinine Urine Total Protein Fluid Total Protein Vancomycin Trough Rheumatoid Factor Complement C4 Miscellaneous Test Crossmatch 12/11/16 12/11/16 12/11/16 11:15 17:59 23:48 WBC RBC Hgb Hct MCV MCH MCHC RDW Plt Count Lymph % (Auto) [place] % (Auto) Lymph # [place] # Baso # Seg Neutrophils % Seg Neuts % (Manual) Lymphocytes % (Manual) Monocytes % (Manual) Eosinophils % (Manual) Basophils % (Manual) Nucleated RBC % Seg Neutrophils # Seg Neutrophils # Man Lymphocytes # (Manual) Monocytes # (Manual) Eosinophils # (Manual) Basophils # (Manual) PT INR Fibrinogen dRVVT Confirm Interp Factor V Activity POC ABG pH POC ABG pCO2 POC ABG pO2 ABG pO2 ABG HCO3 ABG Base Excess ABG Hemoglobin Oxyhemoglobin Sodium Potassium Chloride Carbon Dioxide BUN Creatinine Glucose POC Glucose 188 H 106 H 119 H Lactic Acid Calcium Phosphorus Magnesium Direct Bilirubin AST ALT Alkaline Phosphatase Lactate Dehydrogenase Troponin T C-Reactive Protein Total Protein Albumin Prealbumin Triglycerides Cholesterol LDL Cholesterol Direct HDL Cholesterol Urine pH Urine WBC (Auto) Urine Creatinine Urine Total Protein Fluid Total Protein Vancomycin Trough Rheumatoid Factor Complement C4 Miscellaneous Test Crossmatch 12/12/16 12/12/16 12/12/16 05:00 06:01 12:20 WBC 16.7 H RBC 2.87 L Hgb 8.0 L Hct 24.2 L MCV MCH MCHC RDW 17.6 H Plt Count Lymph % (Auto) [place] % (Auto) Lymph # [place] # 1.2 H Baso # Seg Neutrophils % 75.3 H Seg Neuts % (Manual) Lymphocytes % (Manual) Monocytes % (Manual) Eosinophils % (Manual) Basophils % (Manual) Nucleated RBC % Seg Neutrophils # 12.6 H Seg Neutrophils # Man Lymphocytes # (Manual) Monocytes # (Manual) Eosinophils # (Manual) Basophils # (Manual) PT INR Fibrinogen dRVVT Confirm Interp Factor V Activity POC ABG pH POC ABG pCO2 POC ABG pO2 ABG pO2 ABG HCO3 ABG Base Excess ABG Hemoglobin Oxyhemoglobin Sodium Potassium Chloride Carbon Dioxide BUN Creatinine Glucose POC Glucose 134 H 149 H Lactic Acid Calcium Phosphorus Magnesium Direct Bilirubin AST ALT Alkaline Phosphatase Lactate Dehydrogenase Troponin T C-Reactive Protein Total Protein Albumin Prealbumin Triglycerides Cholesterol LDL Cholesterol Direct HDL Cholesterol Urine pH Urine WBC (Auto) Urine Creatinine Urine Total Protein Fluid Total Protein Vancomycin Trough Rheumatoid Factor Complement C4 Miscellaneous Test Crossmatch 12/12/16 12/12/16 12/12/16 17:38 23:01 Unknown WBC RBC Hgb Hct MCV MCH MCHC RDW Plt Count Lymph % (Auto) [place] % (Auto) Lymph # [place] # Baso # Seg Neutrophils % Seg Neuts % (Manual) Lymphocytes % (Manual) Monocytes % (Manual) Eosinophils % (Manual) Basophils % (Manual) Nucleated RBC % Seg Neutrophils # Seg Neutrophils # Man Lymphocytes # (Manual) Monocytes # (Manual) Eosinophils # (Manual) Basophils # (Manual) PT INR Fibrinogen dRVVT Confirm Interp Factor V Activity POC ABG pH POC ABG pCO2 POC ABG pO2 ABG pO2 ABG HCO3 ABG Base Excess ABG Hemoglobin Oxyhemoglobin Sodium Potassium Chloride Carbon Dioxide BUN 60 H Creatinine 1.3 H Glucose 126 H POC Glucose 127 H 144 H Lactic Acid Calcium Phosphorus Magnesium Direct Bilirubin AST ALT Alkaline Phosphatase Lactate Dehydrogenase Troponin T C-Reactive Protein Total Protein Albumin Prealbumin Triglycerides Cholesterol LDL Cholesterol Direct HDL Cholesterol Urine pH Urine WBC (Auto) Urine Creatinine Urine Total Protein Fluid Total Protein Vancomycin Trough Rheumatoid Factor Complement C4 Miscellaneous Test Crossmatch 12/13/16 12/13/16 12/13/16 04:00 04:00 05:19 WBC 18.7 H RBC 2.89 L Hgb 8.3 L Hct 24.6 L MCV MCH MCHC RDW 17.5 H Plt Count Lymph % (Auto) [place] % (Auto) Lymph # [place] # 1.3 H Baso # Seg Neutrophils % 71.5 H Seg Neuts % (Manual) Lymphocytes % (Manual) Monocytes % (Manual) Eosinophils % (Manual) Basophils % (Manual) Nucleated RBC % Seg Neutrophils # 13.4 H Seg Neutrophils # Man Lymphocytes # (Manual) Monocytes # (Manual) Eosinophils # (Manual) Basophils # (Manual) PT INR Fibrinogen dRVVT Confirm Interp Factor V Activity POC ABG pH POC ABG pCO2 POC ABG pO2 ABG pO2 ABG HCO3 ABG Base Excess ABG Hemoglobin Oxyhemoglobin Sodium Potassium Chloride Carbon Dioxide BUN 73 H Creatinine 1.5 H Glucose 141 H POC Glucose 171 H Lactic Acid Calcium Phosphorus Magnesium Direct Bilirubin AST ALT Alkaline Phosphatase Lactate Dehydrogenase Troponin T C-Reactive Protein Total Protein Albumin Prealbumin Triglycerides Cholesterol LDL Cholesterol Direct HDL Cholesterol Urine pH Urine WBC (Auto) Urine Creatinine Urine Total Protein Fluid Total Protein Vancomycin Trough Rheumatoid Factor Complement C4 Miscellaneous Test Crossmatch 12/13/16 12/13/16 12/14/16 12:28 16:48 00:01 WBC RBC Hgb Hct MCV MCH MCHC RDW Plt Count Lymph % (Auto) [place] % (Auto) Lymph # [place] # Baso # Seg Neutrophils % Seg Neuts % (Manual) Lymphocytes % (Manual) Monocytes % (Manual) Eosinophils % (Manual) Basophils % (Manual) Nucleated RBC % Seg Neutrophils # Seg Neutrophils # Man Lymphocytes # (Manual) Monocytes # (Manual) Eosinophils # (Manual) Basophils # (Manual) PT INR Fibrinogen dRVVT Confirm Interp Factor V Activity POC ABG pH POC ABG pCO2 POC ABG pO2 ABG pO2 ABG HCO3 ABG Base Excess ABG Hemoglobin Oxyhemoglobin Sodium Potassium Chloride Carbon Dioxide BUN Creatinine Glucose POC Glucose 206 H 173 H 139 H Lactic Acid Calcium Phosphorus Magnesium Direct Bilirubin AST ALT Alkaline Phosphatase Lactate Dehydrogenase Troponin T C-Reactive Protein Total Protein Albumin Prealbumin Triglycerides Cholesterol LDL Cholesterol Direct HDL Cholesterol Urine pH Urine WBC (Auto) Urine Creatinine Urine Total Protein Fluid Total Protein Vancomycin Trough Rheumatoid Factor Complement C4 Miscellaneous Test Crossmatch 12/14/16 12/14/16 12/14/16 05:16 06:10 11:17 WBC RBC Hgb Hct MCV MCH MCHC RDW Plt Count Lymph % (Auto) [place] % (Auto) Lymph # [place] # Baso # Seg Neutrophils % Seg Neuts % (Manual) Lymphocytes % (Manual) Monocytes % (Manual) Eosinophils % (Manual) Basophils % (Manual) Nucleated RBC % Seg Neutrophils # Seg Neutrophils # Man Lymphocytes # (Manual) Monocytes # (Manual) Eosinophils # (Manual) Basophils # (Manual) PT INR Fibrinogen dRVVT Confirm Interp Factor V Activity POC ABG pH POC ABG pCO2 POC ABG pO2 ABG pO2 ABG HCO3 ABG Base Excess ABG Hemoglobin Oxyhemoglobin Sodium Potassium Chloride Carbon Dioxide BUN 57 H Creatinine 1.4 H Glucose 135 H POC Glucose 158 H 137 H Lactic Acid Calcium Phosphorus Magnesium Direct Bilirubin AST ALT Alkaline Phosphatase Lactate Dehydrogenase Troponin T C-Reactive Protein Total Protein Albumin Prealbumin Triglycerides Cholesterol LDL Cholesterol Direct HDL Cholesterol Urine pH Urine WBC (Auto) Urine Creatinine Urine Total Protein Fluid Total Protein Vancomycin Trough Rheumatoid Factor Complement C4 Miscellaneous Test Crossmatch 12/14/16 12/14/16 12/15/16 17:52 23:27 04:00 WBC RBC Hgb Hct MCV MCH MCHC RDW Plt Count Lymph % (Auto) [place] % (Auto) Lymph # [place] # Baso # Seg Neutrophils % Seg Neuts % (Manual) Lymphocytes % (Manual) Monocytes % (Manual) Eosinophils % (Manual) Basophils % (Manual) Nucleated RBC % Seg Neutrophils # Seg Neutrophils # Man Lymphocytes # (Manual) Monocytes # (Manual) Eosinophils # (Manual) Basophils # (Manual) PT INR Fibrinogen dRVVT Confirm Interp Factor V Activity POC ABG pH POC ABG pCO2 POC ABG pO2 ABG pO2 ABG HCO3 ABG Base Excess ABG Hemoglobin Oxyhemoglobin Sodium Potassium Chloride 97.9 L Carbon Dioxide BUN 75 H Creatinine 1.6 H Glucose 122 H POC Glucose 149 H 163 H Lactic Acid Calcium Phosphorus 5.20 H Magnesium Direct Bilirubin AST ALT Alkaline Phosphatase Lactate Dehydrogenase Troponin T C-Reactive Protein Total Protein Albumin Prealbumin Triglycerides Cholesterol LDL Cholesterol Direct HDL Cholesterol Urine pH Urine WBC (Auto) Urine Creatinine Urine Total Protein Fluid Total Protein Vancomycin Trough Rheumatoid Factor Complement C4 Miscellaneous Test Crossmatch 12/15/16 12/15/16 12/15/16 05:50 11:24 17:01 WBC RBC Hgb Hct MCV MCH MCHC RDW Plt Count Lymph % (Auto) [place] % (Auto) Lymph # [place] # Baso # Seg Neutrophils % Seg Neuts % (Manual) Lymphocytes % (Manual) Monocytes % (Manual) Eosinophils % (Manual) Basophils % (Manual) Nucleated RBC % Seg Neutrophils # Seg Neutrophils # Man Lymphocytes # (Manual) Monocytes # (Manual) Eosinophils # (Manual) Basophils # (Manual) PT INR Fibrinogen dRVVT Confirm Interp Factor V Activity POC ABG pH POC ABG pCO2 POC ABG pO2 ABG pO2 ABG HCO3 ABG Base Excess ABG Hemoglobin Oxyhemoglobin Sodium Potassium Chloride Carbon Dioxide BUN Creatinine Glucose POC Glucose 150 H 146 H 167 H Lactic Acid Calcium Phosphorus Magnesium Direct Bilirubin AST ALT Alkaline Phosphatase Lactate Dehydrogenase Troponin T C-Reactive Protein Total Protein Albumin Prealbumin Triglycerides Cholesterol LDL Cholesterol Direct HDL Cholesterol Urine pH Urine WBC (Auto) Urine Creatinine Urine Total Protein Fluid Total Protein Vancomycin Trough Rheumatoid Factor Complement C4 Miscellaneous Test Crossmatch 12/15/16 12/16/16 12/16/16 23:34 05:25 11:24 WBC RBC Hgb Hct MCV MCH MCHC RDW Plt Count Lymph % (Auto) [place] % (Auto) Lymph # [place] # Baso # Seg Neutrophils % Seg Neuts % (Manual) Lymphocytes % (Manual) Monocytes % (Manual) Eosinophils % (Manual) Basophils % (Manual) Nucleated RBC % Seg Neutrophils # Seg Neutrophils # Man Lymphocytes # (Manual) Monocytes # (Manual) Eosinophils # (Manual) Basophils # (Manual) PT INR Fibrinogen dRVVT Confirm Interp Factor V Activity POC ABG pH POC ABG pCO2 POC ABG pO2 ABG pO2 ABG HCO3 ABG Base Excess ABG Hemoglobin Oxyhemoglobin Sodium Potassium Chloride Carbon Dioxide BUN Creatinine Glucose POC Glucose 127 H 139 H 165 H Lactic Acid Calcium Phosphorus Magnesium Direct Bilirubin AST ALT Alkaline Phosphatase Lactate Dehydrogenase Troponin T C-Reactive Protein Total Protein Albumin Prealbumin Triglycerides Cholesterol LDL Cholesterol Direct HDL Cholesterol Urine pH Urine WBC (Auto) Urine Creatinine Urine Total Protein Fluid Total Protein Vancomycin Trough Rheumatoid Factor Complement C4 Miscellaneous Test Crossmatch 12/16/16 12/16/16 12/16/16 15:30 16:25 17:31 WBC 17.8 H RBC 2.38 L Hgb 6.4 L Hct 20.3 L MCV MCH 27 L MCHC RDW 17.4 H Plt Count Lymph % (Auto) [place] % (Auto) Lymph # [place] # Baso # Seg Neutrophils % Seg Neuts % (Manual) Lymphocytes % (Manual) Monocytes % (Manual) 10.0 H Eosinophils % (Manual) Basophils % (Manual) Nucleated RBC % Seg Neutrophils # Seg Neutrophils # Man 8.5 H Lymphocytes # (Manual) Monocytes # (Manual) 1.8 H Eosinophils # (Manual) Basophils # (Manual) PT INR Fibrinogen dRVVT Confirm Interp Factor V Activity POC ABG pH POC ABG pCO2 POC ABG pO2 ABG pO2 ABG HCO3 ABG Base Excess ABG Hemoglobin Oxyhemoglobin Sodium Potassium Chloride Carbon Dioxide BUN Creatinine Glucose POC Glucose 176 H Lactic Acid Calcium Phosphorus Magnesium Direct Bilirubin AST ALT Alkaline Phosphatase Lactate Dehydrogenase Troponin T C-Reactive Protein Total Protein Albumin Prealbumin Triglycerides Cholesterol LDL Cholesterol Direct HDL Cholesterol Urine pH Urine WBC (Auto) Urine Creatinine Urine Total Protein Fluid Total Protein Vancomycin Trough Rheumatoid Factor Complement C4 Miscellaneous Test Crossmatch See Detail 12/17/16 12/17/16 12/17/16 00:14 04:00 05:00 WBC 20.0 H RBC 2.99 L Hgb 8.5 L Hct 25.7 L MCV MCH MCHC RDW 17.2 H Plt Count Lymph % (Auto) [place] % (Auto) Lymph # [place] # Baso # Seg Neutrophils % Seg Neuts % (Manual) Lymphocytes % (Manual) Monocytes % (Manual) Eosinophils % (Manual) Basophils % (Manual) Nucleated RBC % Seg Neutrophils # Seg Neutrophils # Man Lymphocytes # (Manual) Monocytes # (Manual) Eosinophils # (Manual) Basophils # (Manual) PT INR Fibrinogen dRVVT Confirm Interp Factor V Activity POC ABG pH POC ABG pCO2 POC ABG pO2 ABG pO2 ABG HCO3 ABG Base Excess ABG Hemoglobin Oxyhemoglobin Sodium Potassium Chloride 97.7 L Carbon Dioxide BUN 73 H Creatinine 1.7 H Glucose 136 H POC Glucose 148 H Lactic Acid Calcium Phosphorus 2.20 L Magnesium 2.70 H Direct Bilirubin AST ALT Alkaline Phosphatase Lactate Dehydrogenase Troponin T C-Reactive Protein Total Protein Albumin Prealbumin Triglycerides Cholesterol LDL Cholesterol Direct HDL Cholesterol Urine pH Urine WBC (Auto) Urine Creatinine Urine Total Protein Fluid Total Protein Vancomycin Trough Rheumatoid Factor Complement C4 Miscellaneous Test Crossmatch 12/17/16 12/17/16 12/17/16 05:39 12:50 16:32 WBC RBC Hgb Hct MCV MCH MCHC RDW Plt Count Lymph % (Auto) [place] % (Auto) Lymph # [place] # Baso # Seg Neutrophils % Seg Neuts % (Manual) Lymphocytes % (Manual) Monocytes % (Manual) Eosinophils % (Manual) Basophils % (Manual) Nucleated RBC % Seg Neutrophils # Seg Neutrophils # Man Lymphocytes # (Manual) Monocytes # (Manual) Eosinophils # (Manual) Basophils # (Manual) PT INR Fibrinogen dRVVT Confirm Interp Factor V Activity POC ABG pH POC ABG pCO2 POC ABG pO2 ABG pO2 ABG HCO3 ABG Base Excess ABG Hemoglobin Oxyhemoglobin Sodium Potassium Chloride Carbon Dioxide BUN Creatinine Glucose POC Glucose 162 H 146 H 169 H Lactic Acid Calcium Phosphorus Magnesium Direct Bilirubin AST ALT Alkaline Phosphatase Lactate Dehydrogenase Troponin T C-Reactive Protein Total Protein Albumin Prealbumin Triglycerides Cholesterol LDL Cholesterol Direct HDL Cholesterol Urine pH Urine WBC (Auto) Urine Creatinine Urine Total Protein Fluid Total Protein Vancomycin Trough Rheumatoid Factor Complement C4 Miscellaneous Test Crossmatch 12/17/16 12/18/16 12/18/16 23:57 05:00 05:32 WBC RBC Hgb Hct MCV MCH MCHC RDW Plt Count Lymph % (Auto) [place] % (Auto) Lymph # [place] # Baso # Seg Neutrophils % Seg Neuts % (Manual) Lymphocytes % (Manual) Monocytes % (Manual) Eosinophils % (Manual) Basophils % (Manual) Nucleated RBC % Seg Neutrophils # Seg Neutrophils # Man Lymphocytes # (Manual) Monocytes # (Manual) Eosinophils # (Manual) Basophils # (Manual) PT INR Fibrinogen dRVVT Confirm Interp Factor V Activity POC ABG pH POC ABG pCO2 POC ABG pO2 ABG pO2 ABG HCO3 ABG Base Excess ABG Hemoglobin Oxyhemoglobin Sodium Potassium Chloride 97.0 L Carbon Dioxide BUN 63 H Creatinine 1.4 H Glucose 174 H POC Glucose 145 H 201 H Lactic Acid Calcium Phosphorus 1.70 L D Magnesium Direct Bilirubin AST ALT Alkaline Phosphatase 257 H Lactate Dehydrogenase Troponin T C-Reactive Protein Total Protein 5.9 L Albumin 1.8 L Prealbumin Triglycerides Cholesterol LDL Cholesterol Direct HDL Cholesterol Urine pH Urine WBC (Auto) Urine Creatinine Urine Total Protein Fluid Total Protein Vancomycin Trough Rheumatoid Factor Complement C4 Miscellaneous Test Crossmatch 12/18/16 12/18/16 12/18/16 11:43 16:52 23:52 WBC RBC Hgb Hct MCV MCH MCHC RDW Plt Count Lymph % (Auto) [place] % (Auto) Lymph # [place] # Baso # Seg Neutrophils % Seg Neuts % (Manual) Lymphocytes % (Manual) Monocytes % (Manual) Eosinophils % (Manual) Basophils % (Manual) Nucleated RBC % Seg Neutrophils # Seg Neutrophils # Man Lymphocytes # (Manual) Monocytes # (Manual) Eosinophils # (Manual) Basophils # (Manual) PT INR Fibrinogen dRVVT Confirm Interp Factor V Activity POC ABG pH POC ABG pCO2 POC ABG pO2 ABG pO2 ABG HCO3 ABG Base Excess ABG Hemoglobin Oxyhemoglobin Sodium Potassium Chloride Carbon Dioxide BUN Creatinine Glucose POC Glucose 177 H 110 H 162 H Lactic Acid Calcium Phosphorus Magnesium Direct Bilirubin AST ALT Alkaline Phosphatase Lactate Dehydrogenase Troponin T C-Reactive Protein Total Protein Albumin Prealbumin Triglycerides Cholesterol LDL Cholesterol Direct HDL Cholesterol Urine pH Urine WBC (Auto) Urine Creatinine Urine Total Protein Fluid Total Protein Vancomycin Trough Rheumatoid Factor Complement C4 Miscellaneous Test Crossmatch 12/19/16 12/19/16 12/19/16 05:02 05:24 09:30 WBC 20.1 H RBC 2.73 L Hgb 7.6 L Hct 23.6 L MCV MCH MCHC RDW 17.6 H Plt Count Lymph % (Auto) [place] % (Auto) Lymph # [place] # Baso # Seg Neutrophils % Seg Neuts % (Manual) Lymphocytes % (Manual) 13.0 L Monocytes % (Manual) Eosinophils % (Manual) Basophils % (Manual) Nucleated RBC % 1.0 H Seg Neutrophils # Seg Neutrophils # Man 12.9 H Lymphocytes # (Manual) Monocytes # (Manual) 1.4 H Eosinophils # (Manual) Basophils # (Manual) 0.2 H PT INR Fibrinogen dRVVT Confirm Interp Factor V Activity POC ABG pH POC ABG pCO2 POC ABG pO2 ABG pO2 ABG HCO3 ABG Base Excess ABG Hemoglobin Oxyhemoglobin Sodium Potassium Chloride 97.8 L Carbon Dioxide BUN 84 H Creatinine 1.6 H Glucose 133 H POC Glucose 134 H Lactic Acid Calcium Phosphorus Magnesium Direct Bilirubin AST ALT Alkaline Phosphatase Lactate Dehydrogenase Troponin T C-Reactive Protein Total Protein Albumin Prealbumin Triglycerides Cholesterol LDL Cholesterol Direct HDL Cholesterol Urine pH Urine WBC (Auto) Urine Creatinine Urine Total Protein Fluid Total Protein Vancomycin Trough Rheumatoid Factor Complement C4 Miscellaneous Test Crossmatch 12/19/16 12/19/16 12/19/16 09:36 11:12 18:29 WBC RBC Hgb Hct MCV MCH MCHC RDW Plt Count Lymph % (Auto) [place] % (Auto) Lymph # [place] # Baso # Seg Neutrophils % Seg Neuts % (Manual) Lymphocytes % (Manual) Monocytes % (Manual) Eosinophils % (Manual) Basophils % (Manual) Nucleated RBC % Seg Neutrophils # Seg Neutrophils # Man Lymphocytes # (Manual) Monocytes # (Manual) Eosinophils # (Manual) Basophils # (Manual) PT INR Fibrinogen dRVVT Confirm Interp Factor V Activity POC ABG pH 7.503 H POC ABG pCO2 30.1 L POC ABG pO2 ABG pO2 ABG HCO3 ABG Base Excess ABG Hemoglobin Oxyhemoglobin Sodium Potassium Chloride Carbon Dioxide BUN Creatinine Glucose POC Glucose 138 H 156 H Lactic Acid Calcium Phosphorus Magnesium Direct Bilirubin AST ALT Alkaline Phosphatase Lactate Dehydrogenase Troponin T C-Reactive Protein Total Protein Albumin Prealbumin Triglycerides Cholesterol LDL Cholesterol Direct HDL Cholesterol Urine pH Urine WBC (Auto) Urine Creatinine Urine Total Protein Fluid Total Protein Vancomycin Trough Rheumatoid Factor Complement C4 Miscellaneous Test Crossmatch 12/20/16 12/20/16 12/20/16 00:03 06:17 07:07 WBC RBC Hgb Hct MCV MCH MCHC RDW Plt Count Lymph % (Auto) [place] % (Auto) Lymph # [place] # Baso # Seg Neutrophils % Seg Neuts % (Manual) Lymphocytes % (Manual) Monocytes % (Manual) Eosinophils % (Manual) Basophils % (Manual) Nucleated RBC % Seg Neutrophils # Seg Neutrophils # Man Lymphocytes # (Manual) Monocytes # (Manual) Eosinophils # (Manual) Basophils # (Manual) PT INR Fibrinogen dRVVT Confirm Interp Factor V Activity POC ABG pH POC ABG pCO2 POC ABG pO2 ABG pO2 ABG HCO3 ABG Base Excess ABG Hemoglobin Oxyhemoglobin Sodium Potassium Chloride 97.1 L Carbon Dioxide 20 L BUN 97 H Creatinine 1.8 H Glucose 153 H POC Glucose 152 H 175 H Lactic Acid Calcium Phosphorus Magnesium Direct Bilirubin AST ALT Alkaline Phosphatase Lactate Dehydrogenase Troponin T C-Reactive Protein Total Protein Albumin Prealbumin Triglycerides Cholesterol LDL Cholesterol Direct HDL Cholesterol Urine pH Urine WBC (Auto) Urine Creatinine Urine Total Protein Fluid Total Protein Vancomycin Trough Rheumatoid Factor Complement C4 Miscellaneous Test Crossmatch 12/20/16 12/20/16 12/20/16 12:00 17:42 23:53 WBC RBC Hgb Hct MCV MCH MCHC RDW Plt Count Lymph % (Auto) [place] % (Auto) Lymph # [place] # Baso # Seg Neutrophils % Seg Neuts % (Manual) Lymphocytes % (Manual) Monocytes % (Manual) Eosinophils % (Manual) Basophils % (Manual) Nucleated RBC % Seg Neutrophils # Seg Neutrophils # Man Lymphocytes # (Manual) Monocytes # (Manual) Eosinophils # (Manual) Basophils # (Manual) PT INR Fibrinogen dRVVT Confirm Interp Factor V Activity POC ABG pH POC ABG pCO2 POC ABG pO2 ABG pO2 ABG HCO3 ABG Base Excess ABG Hemoglobin Oxyhemoglobin Sodium Potassium Chloride Carbon Dioxide BUN Creatinine Glucose POC Glucose 141 H 156 H 132 H Lactic Acid Calcium Phosphorus Magnesium Direct Bilirubin AST ALT Alkaline Phosphatase Lactate Dehydrogenase Troponin T C-Reactive Protein Total Protein Albumin Prealbumin Triglycerides Cholesterol LDL Cholesterol Direct HDL Cholesterol Urine pH Urine WBC (Auto) Urine Creatinine Urine Total Protein Fluid Total Protein Vancomycin Trough Rheumatoid Factor Complement C4 Miscellaneous Test Crossmatch 12/21/16 12/21/16 12/21/16 05:49 08:50 12:19 WBC RBC Hgb Hct MCV MCH MCHC RDW Plt Count Lymph % (Auto) [place] % (Auto) Lymph # [place] # Baso # Seg Neutrophils % Seg Neuts % (Manual) Lymphocytes % (Manual) Monocytes % (Manual) Eosinophils % (Manual) Basophils % (Manual) Nucleated RBC % Seg Neutrophils # Seg Neutrophils # Man Lymphocytes # (Manual) Monocytes # (Manual) Eosinophils # (Manual) Basophils # (Manual) PT INR Fibrinogen dRVVT Confirm Interp Factor V Activity POC ABG pH POC ABG pCO2 POC ABG pO2 ABG pO2 ABG HCO3 ABG Base Excess ABG Hemoglobin Oxyhemoglobin Sodium Potassium 5.2 H D Chloride Carbon Dioxide BUN 63 H Creatinine Glucose 122 H POC Glucose 132 H 136 H Lactic Acid Calcium 8.3 L Phosphorus Magnesium Direct Bilirubin AST ALT Alkaline Phosphatase Lactate Dehydrogenase Troponin T C-Reactive Protein Total Protein Albumin Prealbumin Triglycerides Cholesterol LDL Cholesterol Direct HDL Cholesterol Urine pH Urine WBC (Auto) Urine Creatinine Urine Total Protein Fluid Total Protein Vancomycin Trough Rheumatoid Factor Complement C4 Miscellaneous Test Crossmatch 12/21/16 12/21/16 12/22/16 17:22 23:58 05:49 WBC RBC Hgb Hct MCV MCH MCHC RDW Plt Count Lymph % (Auto) [place] % (Auto) Lymph # [place] # Baso # Seg Neutrophils % Seg Neuts % (Manual) Lymphocytes % (Manual) Monocytes % (Manual) Eosinophils % (Manual) Basophils % (Manual) Nucleated RBC % Seg Neutrophils # Seg Neutrophils # Man Lymphocytes # (Manual) Monocytes # (Manual) Eosinophils # (Manual) Basophils # (Manual) PT INR Fibrinogen dRVVT Confirm Interp Factor V Activity POC ABG pH POC ABG pCO2 POC ABG pO2 ABG pO2 ABG HCO3 ABG Base Excess ABG Hemoglobin Oxyhemoglobin Sodium Potassium Chloride Carbon Dioxide BUN Creatinine Glucose POC Glucose 135 H 149 H 140 H Lactic Acid Calcium Phosphorus Magnesium Direct Bilirubin AST ALT Alkaline Phosphatase Lactate Dehydrogenase Troponin T C-Reactive Protein Total Protein Albumin Prealbumin Triglycerides Cholesterol LDL Cholesterol Direct HDL Cholesterol Urine pH Urine WBC (Auto) Urine Creatinine Urine Total Protein Fluid Total Protein Vancomycin Trough Rheumatoid Factor Complement C4 Miscellaneous Test Crossmatch 12/22/16 12/22/16 12/22/16 06:10 11:17 17:31 WBC RBC Hgb Hct MCV MCH MCHC RDW Plt Count Lymph % (Auto) [place] % (Auto) Lymph # [place] # Baso # Seg Neutrophils % Seg Neuts % (Manual) Lymphocytes % (Manual) Monocytes % (Manual) Eosinophils % (Manual) Basophils % (Manual) Nucleated RBC % Seg Neutrophils # Seg Neutrophils # Man Lymphocytes # (Manual) Monocytes # (Manual) Eosinophils # (Manual) Basophils # (Manual) PT INR Fibrinogen dRVVT Confirm Interp Factor V Activity POC ABG pH POC ABG pCO2 POC ABG pO2 ABG pO2 ABG HCO3 ABG Base Excess ABG Hemoglobin Oxyhemoglobin Sodium Potassium Chloride Carbon Dioxide BUN 76 H Creatinine 1.5 H Glucose 241 H POC Glucose 193 H 148 H Lactic Acid Calcium Phosphorus Magnesium Direct Bilirubin AST ALT Alkaline Phosphatase Lactate Dehydrogenase Troponin T C-Reactive Protein Total Protein Albumin Prealbumin Triglycerides Cholesterol LDL Cholesterol Direct HDL Cholesterol Urine pH Urine WBC (Auto) Urine Creatinine Urine Total Protein Fluid Total Protein Vancomycin Trough Rheumatoid Factor Complement C4 Miscellaneous Test Crossmatch 12/22/16 12/23/16 12/23/16 23:58 05:00 05:26 WBC RBC Hgb Hct MCV MCH MCHC RDW Plt Count Lymph % (Auto) [place] % (Auto) Lymph # [place] # Baso # Seg Neutrophils % Seg Neuts % (Manual) Lymphocytes % (Manual) Monocytes % (Manual) Eosinophils % (Manual) Basophils % (Manual) Nucleated RBC % Seg Neutrophils # Seg Neutrophils # Man Lymphocytes # (Manual) Monocytes # (Manual) Eosinophils # (Manual) Basophils # (Manual) PT INR Fibrinogen dRVVT Confirm Interp Factor V Activity POC ABG pH POC ABG pCO2 POC ABG pO2 ABG pO2 ABG HCO3 ABG Base Excess ABG Hemoglobin Oxyhemoglobin Sodium Potassium Chloride Carbon Dioxide BUN 49 H Creatinine Glucose 143 H POC Glucose 165 H 154 H Lactic Acid Calcium 8.2 L Phosphorus Magnesium 1.60 L Direct Bilirubin AST ALT Alkaline Phosphatase Lactate Dehydrogenase Troponin T C-Reactive Protein Total Protein Albumin Prealbumin Triglycerides Cholesterol LDL Cholesterol Direct HDL Cholesterol Urine pH Urine WBC (Auto) Urine Creatinine Urine Total Protein Fluid Total Protein Vancomycin Trough Rheumatoid Factor Complement C4 Miscellaneous Test Crossmatch 12/23/16 12/23/16 12/24/16 12:35 17:01 00:01 WBC RBC Hgb Hct MCV MCH MCHC RDW Plt Count Lymph % (Auto) [place] % (Auto) Lymph # [place] # Baso # Seg Neutrophils % Seg Neuts % (Manual) Lymphocytes % (Manual) Monocytes % (Manual) Eosinophils % (Manual) Basophils % (Manual) Nucleated RBC % Seg Neutrophils # Seg Neutrophils # Man Lymphocytes # (Manual) Monocytes # (Manual) Eosinophils # (Manual) Basophils # (Manual) PT INR Fibrinogen dRVVT Confirm Interp Factor V Activity POC ABG pH POC ABG pCO2 POC ABG pO2 ABG pO2 ABG HCO3 ABG Base Excess ABG Hemoglobin Oxyhemoglobin Sodium Potassium Chloride Carbon Dioxide BUN Creatinine Glucose POC Glucose 164 H 149 H 135 H Lactic Acid Calcium Phosphorus Magnesium Direct Bilirubin AST ALT Alkaline Phosphatase Lactate Dehydrogenase Troponin T C-Reactive Protein Total Protein Albumin Prealbumin Triglycerides Cholesterol LDL Cholesterol Direct HDL Cholesterol Urine pH Urine WBC (Auto) Urine Creatinine Urine Total Protein Fluid Total Protein Vancomycin Trough Rheumatoid Factor Complement C4 Miscellaneous Test Crossmatch 12/24/16 12/24/16 12/24/16 05:41 07:01 11:38 WBC RBC Hgb Hct MCV MCH MCHC RDW Plt Count Lymph % (Auto) [place] % (Auto) Lymph # [place] # Baso # Seg Neutrophils % Seg Neuts % (Manual) Lymphocytes % (Manual) Monocytes % (Manual) Eosinophils % (Manual) Basophils % (Manual) Nucleated RBC % Seg Neutrophils # Seg Neutrophils # Man Lymphocytes # (Manual) Monocytes # (Manual) Eosinophils # (Manual) Basophils # (Manual) PT INR Fibrinogen dRVVT Confirm Interp Factor V Activity POC ABG pH POC ABG pCO2 POC ABG pO2 ABG pO2 ABG HCO3 ABG Base Excess ABG Hemoglobin Oxyhemoglobin Sodium Potassium Chloride Carbon Dioxide BUN 72 H Creatinine 1.3 H Glucose 130 H POC Glucose 132 H 156 H Lactic Acid Calcium 8.2 L Phosphorus Magnesium Direct Bilirubin AST ALT Alkaline Phosphatase Lactate Dehydrogenase Troponin T C-Reactive Protein Total Protein Albumin Prealbumin Triglycerides Cholesterol LDL Cholesterol Direct HDL Cholesterol Urine pH Urine WBC (Auto) Urine Creatinine Urine Total Protein Fluid Total Protein Vancomycin Trough Rheumatoid Factor Complement C4 Miscellaneous Test Crossmatch 12/24/16 12/25/16 12/25/16 17:53 00:23 05:45 WBC RBC Hgb Hct MCV MCH MCHC RDW Plt Count Lymph % (Auto) [place] % (Auto) Lymph # [place] # Baso # Seg Neutrophils % Seg Neuts % (Manual) Lymphocytes % (Manual) Monocytes % (Manual) Eosinophils % (Manual) Basophils % (Manual) Nucleated RBC % Seg Neutrophils # Seg Neutrophils # Man Lymphocytes # (Manual) Monocytes # (Manual) Eosinophils # (Manual) Basophils # (Manual) PT INR Fibrinogen dRVVT Confirm Interp Factor V Activity POC ABG pH POC ABG pCO2 POC ABG pO2 ABG pO2 ABG HCO3 ABG Base Excess ABG Hemoglobin Oxyhemoglobin Sodium 146 H Potassium Chloride Carbon Dioxide BUN 51 H Creatinine Glucose 109 H POC Glucose 169 H 117 H Lactic Acid Calcium Phosphorus Magnesium Direct Bilirubin AST ALT Alkaline Phosphatase Lactate Dehydrogenase Troponin T C-Reactive Protein Total Protein Albumin Prealbumin Triglycerides Cholesterol LDL Cholesterol Direct HDL Cholesterol Urine pH Urine WBC (Auto) Urine Creatinine Urine Total Protein Fluid Total Protein Vancomycin Trough Rheumatoid Factor Complement C4 Miscellaneous Test Crossmatch 12/25/16 12/25/16 12/25/16 06:43 11:29 17:14 WBC RBC Hgb Hct MCV MCH MCHC RDW Plt Count Lymph % (Auto) [place] % (Auto) Lymph # [place] # Baso # Seg Neutrophils % Seg Neuts % (Manual) Lymphocytes % (Manual) Monocytes % (Manual) Eosinophils % (Manual) Basophils % (Manual) Nucleated RBC % Seg Neutrophils # Seg Neutrophils # Man Lymphocytes # (Manual) Monocytes # (Manual) Eosinophils # (Manual) Basophils # (Manual) PT INR Fibrinogen dRVVT Confirm Interp Factor V Activity POC ABG pH POC ABG pCO2 POC ABG pO2 ABG pO2 ABG HCO3 ABG Base Excess ABG Hemoglobin Oxyhemoglobin Sodium Potassium Chloride Carbon Dioxide BUN Creatinine Glucose POC Glucose 117 H 128 H 120 H Lactic Acid Calcium Phosphorus Magnesium Direct Bilirubin AST ALT Alkaline Phosphatase Lactate Dehydrogenase Troponin T C-Reactive Protein Total Protein Albumin Prealbumin Triglycerides Cholesterol LDL Cholesterol Direct HDL Cholesterol Urine pH Urine WBC (Auto) Urine Creatinine Urine Total Protein Fluid Total Protein Vancomycin Trough Rheumatoid Factor Complement C4 Miscellaneous Test Crossmatch 12/25/16 12/26/16 12/26/16 23:54 05:40 05:50 WBC 16.2 H RBC 2.32 L Hgb 6.2 L Hct 20.1 L MCV MCH 27 L MCHC RDW 18.6 H Plt Count Lymph % (Auto) [place] % (Auto) Lymph # [place] # Baso # Seg Neutrophils % Seg Neuts % (Manual) Lymphocytes % (Manual) Monocytes % (Manual) Eosinophils % (Manual) Basophils % (Manual) Nucleated RBC % Seg Neutrophils # Seg Neutrophils # Man Lymphocytes # (Manual) Monocytes # (Manual) Eosinophils # (Manual) Basophils # (Manual) PT INR Fibrinogen dRVVT Confirm Interp Factor V Activity POC ABG pH POC ABG pCO2 POC ABG pO2 ABG pO2 ABG HCO3 ABG Base Excess ABG Hemoglobin Oxyhemoglobin Sodium Potassium Chloride Carbon Dioxide BUN Creatinine Glucose POC Glucose 126 H 132 H Lactic Acid Calcium Phosphorus Magnesium Direct Bilirubin AST ALT Alkaline Phosphatase Lactate Dehydrogenase Troponin T C-Reactive Protein Total Protein Albumin Prealbumin Triglycerides Cholesterol LDL Cholesterol Direct HDL Cholesterol Urine pH Urine WBC (Auto) Urine Creatinine Urine Total Protein Fluid Total Protein Vancomycin Trough Rheumatoid Factor Complement C4 Miscellaneous Test Crossmatch 12/26/16 12/26/16 12/26/16 05:50 12:17 12:33 WBC RBC Hgb Hct MCV MCH MCHC RDW Plt Count Lymph % (Auto) [place] % (Auto) Lymph # [place] # Baso # Seg Neutrophils % Seg Neuts % (Manual) Lymphocytes % (Manual) Monocytes % (Manual) Eosinophils % (Manual) Basophils % (Manual) Nucleated RBC % Seg Neutrophils # Seg Neutrophils # Man Lymphocytes # (Manual) Monocytes # (Manual) Eosinophils # (Manual) Basophils # (Manual) PT INR Fibrinogen dRVVT Confirm Interp Factor V Activity POC ABG pH POC ABG pCO2 POC ABG pO2 ABG pO2 ABG HCO3 ABG Base Excess ABG Hemoglobin Oxyhemoglobin Sodium Potassium Chloride Carbon Dioxide BUN 73 H Creatinine 1.3 H Glucose 113 H POC Glucose 117 H Lactic Acid Calcium Phosphorus Magnesium Direct Bilirubin AST ALT Alkaline Phosphatase Lactate Dehydrogenase Troponin T C-Reactive Protein Total Protein Albumin Prealbumin Triglycerides Cholesterol LDL Cholesterol Direct HDL Cholesterol Urine pH Urine WBC (Auto) Urine Creatinine Urine Total Protein Fluid Total Protein Vancomycin Trough Rheumatoid Factor Complement C4 Miscellaneous Test Crossmatch See Detail 12/26/16 12/26/16 12/27/16 20:00 23:21 05:00 WBC RBC Hgb 8.4 L Hct 26.3 L D MCV MCH MCHC RDW Plt Count Lymph % (Auto) [place] % (Auto) Lymph # [place] # Baso # Seg Neutrophils % Seg Neuts % (Manual) Lymphocytes % (Manual) Monocytes % (Manual) Eosinophils % (Manual) Basophils % (Manual) Nucleated RBC % Seg Neutrophils # Seg Neutrophils # Man Lymphocytes # (Manual) Monocytes # (Manual) Eosinophils # (Manual) Basophils # (Manual) PT INR Fibrinogen dRVVT Confirm Interp Factor V Activity POC ABG pH POC ABG pCO2 POC ABG pO2 ABG pO2 ABG HCO3 ABG Base Excess ABG Hemoglobin Oxyhemoglobin Sodium Potassium Chloride Carbon Dioxide BUN 85 H Creatinine 1.6 H Glucose 118 H POC Glucose 124 H Lactic Acid Calcium Phosphorus 4.80 H Magnesium Direct Bilirubin AST ALT Alkaline Phosphatase Lactate Dehydrogenase Troponin T C-Reactive Protein Total Protein Albumin Prealbumin Triglycerides Cholesterol LDL Cholesterol Direct HDL Cholesterol Urine pH Urine WBC (Auto) Urine Creatinine Urine Total Protein Fluid Total Protein Vancomycin Trough Rheumatoid Factor Complement C4 Miscellaneous Test Crossmatch 12/27/16 12/27/16 12/27/16 05:00 05:35 12:24 WBC RBC Hgb 7.6 L Hct 22.8 L MCV MCH MCHC RDW Plt Count Lymph % (Auto) [place] % (Auto) Lymph # [place] # Baso # Seg Neutrophils % Seg Neuts % (Manual) Lymphocytes % (Manual) Monocytes % (Manual) Eosinophils % (Manual) Basophils % (Manual) Nucleated RBC % Seg Neutrophils # Seg Neutrophils # Man Lymphocytes # (Manual) Monocytes # (Manual) Eosinophils # (Manual) Basophils # (Manual) PT INR Fibrinogen dRVVT Confirm Interp Factor V Activity POC ABG pH POC ABG pCO2 POC ABG pO2 ABG pO2 ABG HCO3 ABG Base Excess ABG Hemoglobin Oxyhemoglobin Sodium Potassium Chloride Carbon Dioxide BUN Creatinine Glucose POC Glucose 115 H 131 H Lactic Acid Calcium Phosphorus Magnesium Direct Bilirubin AST ALT Alkaline Phosphatase Lactate Dehydrogenase Troponin T C-Reactive Protein Total Protein Albumin Prealbumin Triglycerides Cholesterol LDL Cholesterol Direct HDL Cholesterol Urine pH Urine WBC (Auto) Urine Creatinine Urine Total Protein Fluid Total Protein Vancomycin Trough Rheumatoid Factor Complement C4 Miscellaneous Test Crossmatch 12/27/16 12/28/1612/28/17 17:16 00:18 04:00 WBC RBC Hgb Hct MCV MCH MCHC RDW Plt Count Lymph % (Auto) [place] % (Auto) Lymph # [place] # Baso # Seg Neutrophils % Seg Neuts % (Manual) Lymphocytes % (Manual) Monocytes % (Manual) Eosinophils % (Manual) Basophils % (Manual) Nucleated RBC % Seg Neutrophils # Seg Neutrophils # Man Lymphocytes # (Manual) Monocytes # (Manual) Eosinophils # (Manual) Basophils # (Manual) PT INR Fibrinogen dRVVT Confirm Interp Factor V Activity POC ABG pH POC ABG pCO2 POC ABG pO2 ABG pO2 ABG HCO3 ABG Base Excess ABG Hemoglobin Oxyhemoglobin Sodium Potassium 3.5 L Chloride Carbon Dioxide BUN 57 H Creatinine Glucose 118 H POC Glucose 136 H 120 H Lactic Acid Calcium 8.3 L Phosphorus Magnesium Direct Bilirubin AST ALT Alkaline Phosphatase Lactate Dehydrogenase Troponin T C-Reactive Protein Total Protein Albumin Prealbumin Triglycerides Cholesterol LDL Cholesterol Direct HDL Cholesterol Urine pH Urine WBC (Auto) Urine Creatinine Urine Total Protein Fluid Total Protein Vancomycin Trough Rheumatoid Factor Complement C4 Miscellaneous Test Crossmatch 12/28/16 12/28/16 12/28/16 04:00 05:11 08:30 WBC 17.0 H RBC 2.58 L Hgb 7.1 L Hct 22.0 L MCV MCH MCHC RDW 17.6 H Plt Count Lymph % (Auto) 12.2 L [place] % (Auto) Lymph # [place] # 1.1 H Baso # Seg Neutrophils % 80.5 H Seg Neuts % (Manual) Lymphocytes % (Manual) Monocytes % (Manual) Eosinophils % (Manual) Basophils % (Manual) Nucleated RBC % Seg Neutrophils # 13.7 H Seg Neutrophils # Man Lymphocytes # (Manual) Monocytes # (Manual) Eosinophils # (Manual) Basophils # (Manual) PT 16.1 H INR 1.23 H Fibrinogen dRVVT Confirm Interp Factor V Activity POC ABG pH POC ABG pCO2 POC ABG pO2 ABG pO2 ABG HCO3 ABG Base Excess ABG Hemoglobin Oxyhemoglobin Sodium Potassium Chloride Carbon Dioxide BUN Creatinine Glucose POC Glucose 122 H Lactic Acid Calcium Phosphorus Magnesium Direct Bilirubin AST ALT Alkaline Phosphatase Lactate Dehydrogenase Troponin T C-Reactive Protein Total Protein Albumin Prealbumin Triglycerides Cholesterol LDL Cholesterol Direct HDL Cholesterol Urine pH Urine WBC (Auto) Urine Creatinine Urine Total Protein Fluid Total Protein Vancomycin Trough Rheumatoid Factor Complement C4 Miscellaneous Test Crossmatch 12/28/16 12/28/16 12/28/16 12:27 16:32 23:46 WBC RBC Hgb Hct MCV MCH MCHC RDW Plt Count Lymph % (Auto) [place] % (Auto) Lymph # [place] # Baso # Seg Neutrophils % Seg Neuts % (Manual) Lymphocytes % (Manual) Monocytes % (Manual) Eosinophils % (Manual) Basophils % (Manual) Nucleated RBC % Seg Neutrophils # Seg Neutrophils # Man Lymphocytes # (Manual) Monocytes # (Manual) Eosinophils # (Manual) Basophils # (Manual) PT INR Fibrinogen dRVVT Confirm Interp Factor V Activity POC ABG pH POC ABG pCO2 POC ABG pO2 ABG pO2 ABG HCO3 ABG Base Excess ABG Hemoglobin Oxyhemoglobin Sodium Potassium Chloride Carbon Dioxide BUN Creatinine Glucose POC Glucose 127 H 117 H 108 H Lactic Acid Calcium Phosphorus Magnesium Direct Bilirubin AST ALT Alkaline Phosphatase Lactate Dehydrogenase Troponin T C-Reactive Protein Total Protein Albumin Prealbumin Triglycerides Cholesterol LDL Cholesterol Direct HDL Cholesterol Urine pH Urine WBC (Auto) Urine Creatinine Urine Total Protein Fluid Total Protein Vancomycin Trough Rheumatoid Factor Complement C4 Miscellaneous Test Crossmatch 12/29/16 12/29/16 12/29/16 05:15 05:15 05:32 WBC RBC Hgb Hct MCV MCH MCHC RDW Plt Count Lymph % (Auto) [place] % (Auto) Lymph # [place] # Baso # Seg Neutrophils % Seg Neuts % (Manual) Lymphocytes % (Manual) Monocytes % (Manual) Eosinophils % (Manual) Basophils % (Manual) Nucleated RBC % Seg Neutrophils # Seg Neutrophils # Man Lymphocytes # (Manual) Monocytes # (Manual) Eosinophils # (Manual) Basophils # (Manual) PT INR Fibrinogen dRVVT Confirm Interp Factor V Activity POC ABG pH POC ABG pCO2 POC ABG pO2 ABG pO2 ABG HCO3 ABG Base Excess ABG Hemoglobin Oxyhemoglobin Sodium Potassium Chloride Carbon Dioxide BUN 74 H Creatinine 1.6 H Glucose 111 H POC Glucose 123 H Lactic Acid Calcium Phosphorus Magnesium Direct Bilirubin AST ALT Alkaline Phosphatase Lactate Dehydrogenase Troponin T C-Reactive Protein Total Protein Albumin Prealbumin 0.110 L Triglycerides Cholesterol LDL Cholesterol Direct HDL Cholesterol Urine pH Urine WBC (Auto) Urine Creatinine Urine Total Protein Fluid Total Protein Vancomycin Trough Rheumatoid Factor Complement C4 Miscellaneous Test Crossmatch 12/29/16 12/29/16 12/29/16 11:43 13:45 14:00 WBC 13.8 H RBC 2.26 L Hgb 6.3 L Hct 20.4 L MCV MCH MCHC RDW 18.3 H Plt Count Lymph % (Auto) [place] % (Auto) Lymph # [place] # 0.9 H Baso # Seg Neutrophils % 78.6 H Seg Neuts % (Manual) Lymphocytes % (Manual) Monocytes % (Manual) Eosinophils % (Manual) Basophils % (Manual) Nucleated RBC % Seg Neutrophils # 10.8 H Seg Neutrophils # Man Lymphocytes # (Manual) Monocytes # (Manual) Eosinophils # (Manual) Basophils # (Manual) PT INR Fibrinogen dRVVT Confirm Interp Factor V Activity POC ABG pH POC ABG pCO2 POC ABG pO2 ABG pO2 ABG HCO3 ABG Base Excess ABG Hemoglobin Oxyhemoglobin Sodium Potassium Chloride Carbon Dioxide BUN Creatinine Glucose POC Glucose 133 H Lactic Acid Calcium Phosphorus Magnesium Direct Bilirubin AST ALT Alkaline Phosphatase Lactate Dehydrogenase Troponin T C-Reactive Protein Total Protein Albumin Prealbumin Triglycerides Cholesterol LDL Cholesterol Direct HDL Cholesterol Urine pH Urine WBC (Auto) Urine Creatinine Urine Total Protein Fluid Total Protein Vancomycin Trough Rheumatoid Factor Complement C4 Miscellaneous Test Crossmatch See Detail 12/29/16 12/29/16 12/29/16 17:03 23:15 23:22 WBC RBC Hgb 7.3 L Hct 22.3 L MCV MCH MCHC RDW Plt Count Lymph % (Auto) [place] % (Auto) Lymph # [place] # Baso # Seg Neutrophils % Seg Neuts % (Manual) Lymphocytes % (Manual) Monocytes % (Manual) Eosinophils % (Manual) Basophils % (Manual) Nucleated RBC % Seg Neutrophils # Seg Neutrophils # Man Lymphocytes # (Manual) Monocytes # (Manual) Eosinophils # (Manual) Basophils # (Manual) PT INR Fibrinogen dRVVT Confirm Interp Factor V Activity POC ABG pH POC ABG pCO2 POC ABG pO2 ABG pO2 ABG HCO3 ABG Base Excess ABG Hemoglobin Oxyhemoglobin Sodium Potassium Chloride Carbon Dioxide BUN Creatinine Glucose POC Glucose 139 H 120 H Lactic Acid Calcium Phosphorus Magnesium Direct Bilirubin AST ALT Alkaline Phosphatase Lactate Dehydrogenase Troponin T C-Reactive Protein Total Protein Albumin Prealbumin Triglycerides Cholesterol LDL Cholesterol Direct HDL Cholesterol Urine pH Urine WBC (Auto) Urine Creatinine Urine Total Protein Fluid Total Protein Vancomycin Trough Rheumatoid Factor Complement C4 Miscellaneous Test Crossmatch 12/30/16 12/30/16 12/30/16 04:20 04:20 05:43 WBC 15.6 H RBC 2.81 L Hgb 8.0 L Hct 24.0 L MCV MCH MCHC RDW 16.9 H Plt Count Lymph % (Auto) [place] % (Auto) Lymph # [place] # 1.0 H Baso # Seg Neutrophils % 76.2 H Seg Neuts % (Manual) Lymphocytes % (Manual) Monocytes % (Manual) Eosinophils % (Manual) Basophils % (Manual) Nucleated RBC % Seg Neutrophils # 11.9 H Seg Neutrophils # Man Lymphocytes # (Manual) Monocytes # (Manual) Eosinophils # (Manual) Basophils # (Manual) PT INR Fibrinogen dRVVT Confirm Interp Factor V Activity POC ABG pH POC ABG pCO2 POC ABG pO2 ABG pO2 ABG HCO3 ABG Base Excess ABG Hemoglobin Oxyhemoglobin Sodium Potassium Chloride Carbon Dioxide BUN 87 H Creatinine 1.8 H Glucose 119 H POC Glucose 115 H Lactic Acid Calcium Phosphorus Magnesium Direct Bilirubin AST ALT Alkaline Phosphatase Lactate Dehydrogenase Troponin T C-Reactive Protein Total Protein Albumin Prealbumin Triglycerides Cholesterol LDL Cholesterol Direct HDL Cholesterol Urine pH Urine WBC (Auto) Urine Creatinine Urine Total Protein Fluid Total Protein Vancomycin Trough Rheumatoid Factor Complement C4 Miscellaneous Test Crossmatch 12/30/16 12/30/16 12/31/16 17:27 23:21 04:00 WBC RBC Hgb Hct MCV MCH MCHC RDW Plt Count Lymph % (Auto) [place] % (Auto) Lymph # [place] # Baso # Seg Neutrophils % Seg Neuts % (Manual) Lymphocytes % (Manual) Monocytes % (Manual) Eosinophils % (Manual) Basophils % (Manual) Nucleated RBC % Seg Neutrophils # Seg Neutrophils # Man Lymphocytes # (Manual) Monocytes # (Manual) Eosinophils # (Manual) Basophils # (Manual) PT INR Fibrinogen dRVVT Confirm Interp Factor V Activity POC ABG pH POC ABG pCO2 POC ABG pO2 ABG pO2 ABG HCO3 ABG Base Excess ABG Hemoglobin Oxyhemoglobin Sodium Potassium Chloride Carbon Dioxide BUN 59 H Creatinine Glucose 298 H POC Glucose 144 H 125 H Lactic Acid Calcium Phosphorus Magnesium Direct Bilirubin AST ALT Alkaline Phosphatase Lactate Dehydrogenase Troponin T C-Reactive Protein Total Protein Albumin Prealbumin Triglycerides Cholesterol LDL Cholesterol Direct HDL Cholesterol Urine pH Urine WBC (Auto) Urine Creatinine Urine Total Protein Fluid Total Protein Vancomycin Trough Rheumatoid Factor Complement C4 Miscellaneous Test Crossmatch 12/31/16 12/31/16 12/31/16 05:11 12:18 18:17 WBC RBC Hgb Hct MCV MCH MCHC RDW Plt Count Lymph % (Auto) [place] % (Auto) Lymph # [place] # Baso # Seg Neutrophils % Seg Neuts % (Manual) Lymphocytes % (Manual) Monocytes % (Manual) Eosinophils % (Manual) Basophils % (Manual) Nucleated RBC % Seg Neutrophils # Seg Neutrophils # Man Lymphocytes # (Manual) Monocytes # (Manual) Eosinophils # (Manual) Basophils # (Manual) PT INR Fibrinogen dRVVT Confirm Interp Factor V Activity POC ABG pH POC ABG pCO2 POC ABG pO2 ABG pO2 ABG HCO3 ABG Base Excess ABG Hemoglobin Oxyhemoglobin Sodium Potassium Chloride Carbon Dioxide BUN Creatinine Glucose POC Glucose 167 H 125 H 133 H Lactic Acid Calcium Phosphorus Magnesium Direct Bilirubin AST ALT Alkaline Phosphatase Lactate Dehydrogenase Troponin T C-Reactive Protein Total Protein Albumin Prealbumin Triglycerides Cholesterol LDL Cholesterol Direct HDL Cholesterol Urine pH Urine WBC (Auto) Urine Creatinine Urine Total Protein Fluid Total Protein Vancomycin Trough Rheumatoid Factor Complement C4 Miscellaneous Test Crossmatch 12/31/16 01/01/17 01/01/17 23:55 05:00 05:12 WBC RBC Hgb Hct MCV MCH MCHC RDW Plt Count Lymph % (Auto) [place] % (Auto) Lymph # [place] # Baso # Seg Neutrophils % Seg Neuts % (Manual) Lymphocytes % (Manual) Monocytes % (Manual) Eosinophils % (Manual) Basophils % (Manual) Nucleated RBC % Seg Neutrophils # Seg Neutrophils # Man Lymphocytes # (Manual) Monocytes # (Manual) Eosinophils # (Manual) Basophils # (Manual) PT INR Fibrinogen dRVVT Confirm Interp Factor V Activity POC ABG pH POC ABG pCO2 POC ABG pO2 ABG pO2 ABG HCO3 ABG Base Excess ABG Hemoglobin Oxyhemoglobin Sodium Potassium Chloride Carbon Dioxide BUN 76 H Creatinine 1.5 H Glucose 109 H POC Glucose 129 H 129 H Lactic Acid Calcium Phosphorus Magnesium Direct Bilirubin AST ALT Alkaline Phosphatase 536 H Lactate Dehydrogenase Troponin T C-Reactive Protein Total Protein Albumin 1.5 L Prealbumin Triglycerides Cholesterol LDL Cholesterol Direct HDL Cholesterol Urine pH Urine WBC (Auto) Urine Creatinine Urine Total Protein Fluid Total Protein Vancomycin Trough Rheumatoid Factor Complement C4 Miscellaneous Test Crossmatch 01/01/17 01/01/17 01/01/17 12:25 17:01 23:32 WBC RBC Hgb Hct MCV MCH MCHC RDW Plt Count Lymph % (Auto) [place] % (Auto) Lymph # [place] # Baso # Seg Neutrophils % Seg Neuts % (Manual) Lymphocytes % (Manual) Monocytes % (Manual) Eosinophils % (Manual) Basophils % (Manual) Nucleated RBC % Seg Neutrophils # Seg Neutrophils # Man Lymphocytes # (Manual) Monocytes # (Manual) Eosinophils # (Manual) Basophils # (Manual) PT INR Fibrinogen dRVVT Confirm Interp Factor V Activity POC ABG pH POC ABG pCO2 POC ABG pO2 ABG pO2 ABG HCO3 ABG Base Excess ABG Hemoglobin Oxyhemoglobin Sodium Potassium Chloride Carbon Dioxide BUN Creatinine Glucose POC Glucose 140 H 142 H 112 H Lactic Acid Calcium Phosphorus Magnesium Direct Bilirubin AST ALT Alkaline Phosphatase Lactate Dehydrogenase Troponin T C-Reactive Protein Total Protein Albumin Prealbumin Triglycerides Cholesterol LDL Cholesterol Direct HDL Cholesterol Urine pH Urine WBC (Auto) Urine Creatinine Urine Total Protein Fluid Total Protein Vancomycin Trough Rheumatoid Factor Complement C4 Miscellaneous Test Crossmatch 01/02/17 01/02/17 01/02/17 04:56 06:00 11:37 WBC RBC Hgb Hct MCV MCH MCHC RDW Plt Count Lymph % (Auto) [place] % (Auto) Lymph # [place] # Baso # Seg Neutrophils % Seg Neuts % (Manual) Lymphocytes % (Manual) Monocytes % (Manual) Eosinophils % (Manual) Basophils % (Manual) Nucleated RBC % Seg Neutrophils # Seg Neutrophils # Man Lymphocytes # (Manual) Monocytes # (Manual) Eosinophils # (Manual) Basophils # (Manual) PT INR Fibrinogen dRVVT Confirm Interp Factor V Activity POC ABG pH POC ABG pCO2 POC ABG pO2 ABG pO2 ABG HCO3 ABG Base Excess ABG Hemoglobin Oxyhemoglobin Sodium Potassium Chloride Carbon Dioxide BUN 88 H Creatinine 1.7 H Glucose 113 H POC Glucose 136 H 200 H Lactic Acid Calcium Phosphorus Magnesium Direct Bilirubin AST ALT Alkaline Phosphatase Lactate Dehydrogenase Troponin T C-Reactive Protein Total Protein Albumin Prealbumin Triglycerides Cholesterol LDL Cholesterol Direct HDL Cholesterol Urine pH Urine WBC (Auto) Urine Creatinine Urine Total Protein Fluid Total Protein Vancomycin Trough Rheumatoid Factor Complement C4 Miscellaneous Test Crossmatch 01/02/17 01/02/17 01/03/17 17:42 22:52 04:54 WBC RBC Hgb Hct MCV MCH MCHC RDW Plt Count Lymph % (Auto) [place] % (Auto) Lymph # [place] # Baso # Seg Neutrophils % Seg Neuts % (Manual) Lymphocytes % (Manual) Monocytes % (Manual) Eosinophils % (Manual) Basophils % (Manual) Nucleated RBC % Seg Neutrophils # Seg Neutrophils # Man Lymphocytes # (Manual) Monocytes # (Manual) Eosinophils # (Manual) Basophils # (Manual) PT INR Fibrinogen dRVVT Confirm Interp Factor V Activity POC ABG pH POC ABG pCO2 POC ABG pO2 ABG pO2 ABG HCO3 ABG Base Excess ABG Hemoglobin Oxyhemoglobin Sodium Potassium Chloride Carbon Dioxide BUN Creatinine Glucose POC Glucose 112 H 133 H 111 H Lactic Acid Calcium Phosphorus Magnesium Direct Bilirubin AST ALT Alkaline Phosphatase Lactate Dehydrogenase Troponin T C-Reactive Protein Total Protein Albumin Prealbumin Triglycerides Cholesterol LDL Cholesterol Direct HDL Cholesterol Urine pH Urine WBC (Auto) Urine Creatinine Urine Total Protein Fluid Total Protein Vancomycin Trough Rheumatoid Factor Complement C4 Miscellaneous Test Crossmatch 01/03/17 01/03/17 01/03/17 05:00 05:00 14:02 WBC 11.2 H RBC 2.56 L Hgb 7.2 L Hct 22.3 L MCV MCH MCHC RDW 17.3 H Plt Count Lymph % (Auto) [place] % (Auto) 10.0 H Lymph # [place] # 1.1 H Baso # Seg Neutrophils % 70.5 H Seg Neuts % (Manual) Lymphocytes % (Manual) Monocytes % (Manual) Eosinophils % (Manual) Basophils % (Manual) Nucleated RBC % Seg Neutrophils # 7.9 H Seg Neutrophils # Man Lymphocytes # (Manual) Monocytes # (Manual) Eosinophils # (Manual) Basophils # (Manual) PT INR Fibrinogen dRVVT Confirm Interp Factor V Activity POC ABG pH POC ABG pCO2 POC ABG pO2 ABG pO2 ABG HCO3 ABG Base Excess ABG Hemoglobin Oxyhemoglobin Sodium Potassium Chloride Carbon Dioxide BUN 60 H Creatinine 1.3 H Glucose 110 H POC Glucose 119 H Lactic Acid Calcium Phosphorus Magnesium Direct Bilirubin AST ALT Alkaline Phosphatase Lactate Dehydrogenase Troponin T C-Reactive Protein Total Protein Albumin Prealbumin Triglycerides Cholesterol LDL Cholesterol Direct HDL Cholesterol Urine pH Urine WBC (Auto) Urine Creatinine Urine Total Protein Fluid Total Protein Vancomycin Trough Rheumatoid Factor Complement C4 Miscellaneous Test Crossmatch 01/03/17 01/03/17 01/04/17 18:13 23:40 05:57 WBC RBC Hgb Hct MCV MCH MCHC RDW Plt Count Lymph % (Auto) [place] % (Auto) Lymph # [place] # Baso # Seg Neutrophils % Seg Neuts % (Manual) Lymphocytes % (Manual) Monocytes % (Manual) Eosinophils % (Manual) Basophils % (Manual) Nucleated RBC % Seg Neutrophils # Seg Neutrophils # Man Lymphocytes # (Manual) Monocytes # (Manual) Eosinophils # (Manual) Basophils # (Manual) PT INR Fibrinogen dRVVT Confirm Interp Factor V Activity POC ABG pH POC ABG pCO2 POC ABG pO2 ABG pO2 ABG HCO3 ABG Base Excess ABG Hemoglobin Oxyhemoglobin Sodium Potassium Chloride Carbon Dioxide BUN Creatinine Glucose POC Glucose 107 H 129 H 111 H Lactic Acid Calcium Phosphorus Magnesium Direct Bilirubin AST ALT Alkaline Phosphatase Lactate Dehydrogenase Troponin T C-Reactive Protein Total Protein Albumin Prealbumin Triglycerides Cholesterol LDL Cholesterol Direct HDL Cholesterol Urine pH Urine WBC (Auto) Urine Creatinine Urine Total Protein Fluid Total Protein Vancomycin Trough Rheumatoid Factor Complement C4 Miscellaneous Test Crossmatch 01/04/17 01/04/17 01/04/17 12:46 15:27 17:11 WBC RBC Hgb Hct MCV MCH MCHC RDW Plt Count Lymph % (Auto) [place] % (Auto) Lymph # [place] # Baso # Seg Neutrophils % Seg Neuts % (Manual) Lymphocytes % (Manual) Monocytes % (Manual) Eosinophils % (Manual) Basophils % (Manual) Nucleated RBC % Seg Neutrophils # Seg Neutrophils # Man Lymphocytes # (Manual) Monocytes # (Manual) Eosinophils # (Manual) Basophils # (Manual) PT INR Fibrinogen dRVVT Confirm Interp Factor V Activity POC ABG pH POC ABG pCO2 POC ABG pO2 ABG pO2 ABG HCO3 ABG Base Excess ABG Hemoglobin Oxyhemoglobin Sodium Potassium Chloride Carbon Dioxide BUN 43 H Creatinine Glucose 124 H POC Glucose 159 H 125 H Lactic Acid Calcium 8.0 L Phosphorus 2.10 L Magnesium Direct Bilirubin AST ALT Alkaline Phosphatase Lactate Dehydrogenase Troponin T C-Reactive Protein Total Protein Albumin Prealbumin Triglycerides Cholesterol LDL Cholesterol Direct HDL Cholesterol Urine pH Urine WBC (Auto) Urine Creatinine Urine Total Protein Fluid Total Protein Vancomycin Trough Rheumatoid Factor Complement C4 Miscellaneous Test Crossmatch 01/04/17 01/05/17 01/05/17 23:31 04:00 05:46 WBC RBC Hgb Hct MCV MCH MCHC RDW Plt Count Lymph % (Auto) [place] % (Auto) Lymph # [place] # Baso # Seg Neutrophils % Seg Neuts % (Manual) Lymphocytes % (Manual) Monocytes % (Manual) Eosinophils % (Manual) Basophils % (Manual) Nucleated RBC % Seg Neutrophils # Seg Neutrophils # Man Lymphocytes # (Manual) Monocytes # (Manual) Eosinophils # (Manual) Basophils # (Manual) PT INR Fibrinogen dRVVT Confirm Interp Factor V Activity POC ABG pH POC ABG pCO2 POC ABG pO2 ABG pO2 ABG HCO3 ABG Base Excess ABG Hemoglobin Oxyhemoglobin Sodium Potassium Chloride Carbon Dioxide BUN 52 H Creatinine 1.3 H Glucose 113 H POC Glucose 123 H 118 H Lactic Acid Calcium Phosphorus 2.40 L Magnesium Direct Bilirubin AST ALT Alkaline Phosphatase Lactate Dehydrogenase Troponin T C-Reactive Protein Total Protein Albumin Prealbumin Triglycerides Cholesterol LDL Cholesterol Direct HDL Cholesterol Urine pH Urine WBC (Auto) Urine Creatinine Urine Total Protein Fluid Total Protein Vancomycin Trough Rheumatoid Factor Complement C4 Miscellaneous Test Crossmatch 01/05/17 01/05/17 01/05/17 11:41 17:48 23:27 WBC RBC Hgb Hct MCV MCH MCHC RDW Plt Count Lymph % (Auto) [place] % (Auto) Lymph # [place] # Baso # Seg Neutrophils % Seg Neuts % (Manual) Lymphocytes % (Manual) Monocytes % (Manual) Eosinophils % (Manual) Basophils % (Manual) Nucleated RBC % Seg Neutrophils # Seg Neutrophils # Man Lymphocytes # (Manual) Monocytes # (Manual) Eosinophils # (Manual) Basophils # (Manual) PT INR Fibrinogen dRVVT Confirm Interp Factor V Activity POC ABG pH POC ABG pCO2 POC ABG pO2 ABG pO2 ABG HCO3 ABG Base Excess ABG Hemoglobin Oxyhemoglobin Sodium Potassium Chloride Carbon Dioxide BUN Creatinine Glucose POC Glucose 163 H 142 H 155 H Lactic Acid Calcium Phosphorus Magnesium Direct Bilirubin AST ALT Alkaline Phosphatase Lactate Dehydrogenase Troponin T C-Reactive Protein Total Protein Albumin Prealbumin Triglycerides Cholesterol LDL Cholesterol Direct HDL Cholesterol Urine pH Urine WBC (Auto) Urine Creatinine Urine Total Protein Fluid Total Protein Vancomycin Trough Rheumatoid Factor Complement C4 Miscellaneous Test Crossmatch 01/06/17 01/06/17 01/06/17 05:20 07:35 11:18 WBC RBC Hgb Hct MCV MCH MCHC RDW Plt Count Lymph % (Auto) [place] % (Auto) Lymph # [place] # Baso # Seg Neutrophils % Seg Neuts % (Manual) Lymphocytes % (Manual) Monocytes % (Manual) Eosinophils % (Manual) Basophils % (Manual) Nucleated RBC % Seg Neutrophils # Seg Neutrophils # Man Lymphocytes # (Manual) Monocytes # (Manual) Eosinophils # (Manual) Basophils # (Manual) PT INR Fibrinogen dRVVT Confirm Interp Factor V Activity POC ABG pH POC ABG pCO2 POC ABG pO2 ABG pO2 ABG HCO3 ABG Base Excess ABG Hemoglobin Oxyhemoglobin Sodium Potassium Chloride Carbon Dioxide BUN 74 H Creatinine 1.6 H Glucose 135 H POC Glucose 108 H 149 H Lactic Acid Calcium Phosphorus Magnesium Direct Bilirubin AST ALT Alkaline Phosphatase Lactate Dehydrogenase Troponin T C-Reactive Protein Total Protein Albumin Prealbumin Triglycerides Cholesterol LDL Cholesterol Direct HDL Cholesterol Urine pH Urine WBC (Auto) Urine Creatinine Urine Total Protein Fluid Total Protein Vancomycin Trough Rheumatoid Factor Complement C4 Miscellaneous Test Crossmatch 01/06/17 01/07/17 01/07/17 17:17 00:23 05:31 WBC RBC Hgb Hct MCV MCH MCHC RDW Plt Count Lymph % (Auto) [place] % (Auto) Lymph # [place] # Baso # Seg Neutrophils % Seg Neuts % (Manual) Lymphocytes % (Manual) Monocytes % (Manual) Eosinophils % (Manual) Basophils % (Manual) Nucleated RBC % Seg Neutrophils # Seg Neutrophils # Man Lymphocytes # (Manual) Monocytes # (Manual) Eosinophils # (Manual) Basophils # (Manual) PT INR Fibrinogen dRVVT Confirm Interp Factor V Activity POC ABG pH POC ABG pCO2 POC ABG pO2 ABG pO2 ABG HCO3 ABG Base Excess ABG Hemoglobin Oxyhemoglobin Sodium Potassium Chloride Carbon Dioxide BUN Creatinine Glucose POC Glucose 146 H 165 H 153 H Lactic Acid Calcium Phosphorus Magnesium Direct Bilirubin AST ALT Alkaline Phosphatase Lactate Dehydrogenase Troponin T C-Reactive Protein Total Protein Albumin Prealbumin Triglycerides Cholesterol LDL Cholesterol Direct HDL Cholesterol Urine pH Urine WBC (Auto) Urine Creatinine Urine Total Protein Fluid Total Protein Vancomycin Trough Rheumatoid Factor Complement C4 Miscellaneous Test Crossmatch 01/07/17 01/07/17 01/07/17 06:00 11:39 17:11 WBC RBC Hgb Hct MCV MCH MCHC RDW Plt Count Lymph % (Auto) [place] % (Auto) Lymph # [place] # Baso # Seg Neutrophils % Seg Neuts % (Manual) Lymphocytes % (Manual) Monocytes % (Manual) Eosinophils % (Manual) Basophils % (Manual) Nucleated RBC % Seg Neutrophils # Seg Neutrophils # Man Lymphocytes # (Manual) Monocytes # (Manual) Eosinophils # (Manual) Basophils # (Manual) PT INR Fibrinogen dRVVT Confirm Interp Factor V Activity POC ABG pH POC ABG pCO2 POC ABG pO2 ABG pO2 ABG HCO3 ABG Base Excess ABG Hemoglobin Oxyhemoglobin Sodium Potassium Chloride Carbon Dioxide BUN 42 H Creatinine Glucose 175 H POC Glucose 163 H 163 H Lactic Acid Calcium Phosphorus 2.40 L D Magnesium Direct Bilirubin AST ALT Alkaline Phosphatase Lactate Dehydrogenase Troponin T C-Reactive Protein Total Protein Albumin Prealbumin Triglycerides Cholesterol LDL Cholesterol Direct HDL Cholesterol Urine pH Urine WBC (Auto) Urine Creatinine Urine Total Protein Fluid Total Protein Vancomycin Trough Rheumatoid Factor Complement C4 Miscellaneous Test Crossmatch 01/07/17 01/08/17 01/08/17 23:40 05:00 05:00 WBC 27.4 H RBC 2.27 L Hgb 6.1 L Hct 20.4 L MCV MCH 27 L MCHC RDW 17.8 H Plt Count Lymph % (Auto) [place] % (Auto) Lymph # [place] # Baso # Seg Neutrophils % Seg Neuts % (Manual) Lymphocytes % (Manual) Monocytes % (Manual) Eosinophils % (Manual) Basophils % (Manual) Nucleated RBC % Seg Neutrophils # Seg Neutrophils # Man Lymphocytes # (Manual) Monocytes # (Manual) Eosinophils # (Manual) Basophils # (Manual) PT INR Fibrinogen dRVVT Confirm Interp Factor V Activity POC ABG pH POC ABG pCO2 POC ABG pO2 ABG pO2 ABG HCO3 ABG Base Excess ABG Hemoglobin Oxyhemoglobin Sodium Potassium Chloride Carbon Dioxide 16 L D BUN 62 H Creatinine 1.6 H D Glucose 103 H POC Glucose 135 H Lactic Acid Calcium Phosphorus Magnesium Direct Bilirubin AST ALT Alkaline Phosphatase Lactate Dehydrogenase Troponin T C-Reactive Protein Total Protein Albumin Prealbumin Triglycerides Cholesterol LDL Cholesterol Direct HDL Cholesterol Urine pH Urine WBC (Auto) Urine Creatinine Urine Total Protein Fluid Total Protein Vancomycin Trough Rheumatoid Factor Complement C4 Miscellaneous Test Crossmatch 01/08/17 01/08/17 01/08/17 05:25 10:37 10:37 WBC RBC Hgb Hct MCV MCH MCHC RDW Plt Count Lymph % (Auto) [place] % (Auto) Lymph # [place] # Baso # Seg Neutrophils % Seg Neuts % (Manual) Lymphocytes % (Manual) Monocytes % (Manual) Eosinophils % (Manual) Basophils % (Manual) Nucleated RBC % Seg Neutrophils # Seg Neutrophils # Man Lymphocytes # (Manual) Monocytes # (Manual) Eosinophils # (Manual) Basophils # (Manual) PT INR Fibrinogen dRVVT Confirm Interp Factor V Activity POC ABG pH POC ABG pCO2 POC ABG pO2 ABG pO2 ABG HCO3 ABG Base Excess ABG Hemoglobin Oxyhemoglobin Sodium Potassium Chloride Carbon Dioxide BUN Creatinine Glucose POC Glucose 106 H Lactic Acid Calcium Phosphorus Magnesium Direct Bilirubin AST ALT Alkaline Phosphatase Lactate Dehydrogenase Troponin T C-Reactive Protein 24.40 H Total Protein Albumin Prealbumin Triglycerides Cholesterol LDL Cholesterol Direct HDL Cholesterol Urine pH Urine WBC (Auto) Urine Creatinine Urine Total Protein Fluid Total Protein Vancomycin Trough Rheumatoid Factor Complement C4 Miscellaneous Test Crossmatch See Detail 01/08/17 01/08/17 01/08/17 10:37 11:33 15:15 WBC RBC Hgb Hct MCV MCH MCHC RDW Plt Count Lymph % (Auto) [place] % (Auto) Lymph # [place] # Baso # Seg Neutrophils % Seg Neuts % (Manual) Lymphocytes % (Manual) Monocytes % (Manual) Eosinophils % (Manual) Basophils % (Manual) Nucleated RBC % Seg Neutrophils # Seg Neutrophils # Man Lymphocytes # (Manual) Monocytes # (Manual) Eosinophils # (Manual) Basophils # (Manual) PT INR Fibrinogen dRVVT Confirm Interp Factor V Activity POC ABG pH POC ABG pCO2 POC ABG pO2 ABG pO2 ABG HCO3 ABG Base Excess ABG Hemoglobin Oxyhemoglobin Sodium Potassium Chloride Carbon Dioxide BUN Creatinine Glucose POC Glucose 157 H Lactic Acid 9.70 H* 9.10 H* Calcium Phosphorus Magnesium Direct Bilirubin AST ALT Alkaline Phosphatase Lactate Dehydrogenase Troponin T C-Reactive Protein Total Protein Albumin Prealbumin Triglycerides Cholesterol LDL Cholesterol Direct HDL Cholesterol Urine pH Urine WBC (Auto) Urine Creatinine Urine Total Protein Fluid Total Protein Vancomycin Trough Rheumatoid Factor Complement C4 Miscellaneous Test Crossmatch 01/08/17 01/08/17 01/09/17 17:19 23:12 04:40 WBC RBC Hgb Hct MCV MCH MCHC RDW Plt Count Lymph % (Auto) [place] % (Auto) Lymph # [place] # Baso # Seg Neutrophils % Seg Neuts % (Manual) Lymphocytes % (Manual) Monocytes % (Manual) Eosinophils % (Manual) Basophils % (Manual) Nucleated RBC % Seg Neutrophils # Seg Neutrophils # Man Lymphocytes # (Manual) Monocytes # (Manual) Eosinophils # (Manual) Basophils # (Manual) PT INR Fibrinogen dRVVT Confirm Interp Factor V Activity POC ABG pH POC ABG pCO2 POC ABG pO2 ABG pO2 ABG HCO3 ABG Base Excess ABG Hemoglobin Oxyhemoglobin Sodium 147 H Potassium Chloride Carbon Dioxide BUN 82 H Creatinine 1.8 H Glucose 137 H POC Glucose 164 H 157 H Lactic Acid Calcium Phosphorus Magnesium Direct Bilirubin AST ALT Alkaline Phosphatase Lactate Dehydrogenase Troponin T C-Reactive Protein Total Protein Albumin Prealbumin Triglycerides Cholesterol LDL Cholesterol Direct HDL Cholesterol Urine pH Urine WBC (Auto) Urine Creatinine Urine Total Protein Fluid Total Protein Vancomycin Trough Rheumatoid Factor Complement C4 Miscellaneous Test Crossmatch 01/09/17 01/09/17 01/09/17 05:42 08:22 10:57 WBC RBC Hgb Hct MCV MCH MCHC RDW Plt Count Lymph % (Auto) [place] % (Auto) Lymph # [place] # Baso # Seg Neutrophils % Seg Neuts % (Manual) Lymphocytes % (Manual) Monocytes % (Manual) Eosinophils % (Manual) Basophils % (Manual) Nucleated RBC % Seg Neutrophils # Seg Neutrophils # Man Lymphocytes # (Manual) Monocytes # (Manual) Eosinophils # (Manual) Basophils # (Manual) PT INR Fibrinogen dRVVT Confirm Interp Factor V Activity POC ABG pH POC ABG pCO2 POC ABG pO2 ABG pO2 ABG HCO3 ABG Base Excess ABG Hemoglobin Oxyhemoglobin Sodium Potassium Chloride Carbon Dioxide BUN Creatinine Glucose POC Glucose 156 H 122 H Lactic Acid 2.30 H* Calcium Phosphorus Magnesium Direct Bilirubin AST ALT Alkaline Phosphatase Lactate Dehydrogenase Troponin T C-Reactive Protein Total Protein Albumin Prealbumin Triglycerides Cholesterol LDL Cholesterol Direct HDL Cholesterol Urine pH Urine WBC (Auto) Urine Creatinine Urine Total Protein Fluid Total Protein Vancomycin Trough Rheumatoid Factor Complement C4 Miscellaneous Test Crossmatch 01/09/17 01/09/17 01/09/17 13:30 17:14 18:45 WBC RBC Hgb Hct MCV MCH MCHC RDW Plt Count Lymph % (Auto) [place] % (Auto) Lymph # [place] # Baso # Seg Neutrophils % Seg Neuts % (Manual) Lymphocytes % (Manual) Monocytes % (Manual) Eosinophils % (Manual) Basophils % (Manual) Nucleated RBC % Seg Neutrophils # Seg Neutrophils # Man Lymphocytes # (Manual) Monocytes # (Manual) Eosinophils # (Manual) Basophils # (Manual) PT INR Fibrinogen dRVVT Confirm Interp Factor V Activity POC ABG pH POC ABG pCO2 POC ABG pO2 ABG pO2 ABG HCO3 ABG Base Excess ABG Hemoglobin Oxyhemoglobin Sodium Potassium Chloride Carbon Dioxide BUN Creatinine Glucose POC Glucose 127 H Lactic Acid Calcium Phosphorus Magnesium Direct Bilirubin AST ALT Alkaline Phosphatase Lactate Dehydrogenase Troponin T C-Reactive Protein 24.70 H Total Protein Albumin Prealbumin Triglycerides Cholesterol LDL Cholesterol Direct HDL Cholesterol Urine pH Urine WBC (Auto) Urine Creatinine Urine Total Protein Fluid Total Protein Vancomycin Trough Rheumatoid Factor Complement C4 Miscellaneous Test Flexitest 1 H Crossmatch 01/10/17 01/10/17 01/10/17 01:21 04:00 04:00 WBC 18.1 H RBC 3.22 L Hgb 8.8 L Hct 27.0 L D MCV MCH 27 L MCHC RDW 17.0 H Plt Count Lymph % (Auto) [place] % (Auto) Lymph # [place] # Baso # Seg Neutrophils % Seg Neuts % (Manual) Lymphocytes % (Manual) Monocytes % (Manual) Eosinophils % (Manual) Basophils % (Manual) Nucleated RBC % Seg Neutrophils # Seg Neutrophils # Man Lymphocytes # (Manual) Monocytes # (Manual) Eosinophils # (Manual) Basophils # (Manual) PT INR Fibrinogen dRVVT Confirm Interp Factor V Activity POC ABG pH POC ABG pCO2 POC ABG pO2 ABG pO2 ABG HCO3 ABG Base Excess ABG Hemoglobin Oxyhemoglobin Sodium Potassium Chloride Carbon Dioxide BUN 59 H Creatinine 1.3 H Glucose 122 H POC Glucose 160 H Lactic Acid Calcium Phosphorus Magnesium Direct Bilirubin AST ALT Alkaline Phosphatase Lactate Dehydrogenase Troponin T C-Reactive Protein Total Protein Albumin Prealbumin Triglycerides Cholesterol LDL Cholesterol Direct HDL Cholesterol Urine pH Urine WBC (Auto) Urine Creatinine Urine Total Protein Fluid Total Protein Vancomycin Trough Rheumatoid Factor Complement C4 Miscellaneous Test Crossmatch 01/10/17 01/10/17 01/10/17 05:36 12:14 17:55 WBC RBC Hgb Hct MCV MCH MCHC RDW Plt Count Lymph % (Auto) [place] % (Auto) Lymph # [place] # Baso # Seg Neutrophils % Seg Neuts % (Manual) Lymphocytes % (Manual) Monocytes % (Manual) Eosinophils % (Manual) Basophils % (Manual) Nucleated RBC % Seg Neutrophils # Seg Neutrophils # Man Lymphocytes # (Manual) Monocytes # (Manual) Eosinophils # (Manual) Basophils # (Manual) PT INR Fibrinogen dRVVT Confirm Interp Factor V Activity POC ABG pH POC ABG pCO2 POC ABG pO2 ABG pO2 ABG HCO3 ABG Base Excess ABG Hemoglobin Oxyhemoglobin Sodium Potassium Chloride Carbon Dioxide BUN Creatinine Glucose POC Glucose 163 H 120 H 144 H Lactic Acid Calcium Phosphorus Magnesium Direct Bilirubin AST ALT Alkaline Phosphatase Lactate Dehydrogenase Troponin T C-Reactive Protein Total Protein Albumin Prealbumin Triglycerides Cholesterol LDL Cholesterol Direct HDL Cholesterol Urine pH Urine WBC (Auto) Urine Creatinine Urine Total Protein Fluid Total Protein Vancomycin Trough Rheumatoid Factor Complement C4 Miscellaneous Test Crossmatch 01/11/17 01/11/17 01/11/17 00:09 04:00 04:00 WBC 15.8 H RBC 3.04 L Hgb 8.2 L Hct 25.5 L MCV MCH 27 L MCHC RDW 17.3 H Plt Count Lymph % (Auto) [place] % (Auto) Lymph # [place] # Baso # Seg Neutrophils % Seg Neuts % (Manual) Lymphocytes % (Manual) Monocytes % (Manual) Eosinophils % (Manual) Basophils % (Manual) Nucleated RBC % Seg Neutrophils # Seg Neutrophils # Man Lymphocytes # (Manual) Monocytes # (Manual) Eosinophils # (Manual) Basophils # (Manual) PT INR Fibrinogen dRVVT Confirm Interp Factor V Activity POC ABG pH POC ABG pCO2 POC ABG pO2 ABG pO2 ABG HCO3 ABG Base Excess ABG Hemoglobin Oxyhemoglobin Sodium Potassium Chloride Carbon Dioxide BUN 78 H Creatinine 1.6 H Glucose 109 H POC Glucose 122 H Lactic Acid Calcium Phosphorus Magnesium Direct Bilirubin AST ALT Alkaline Phosphatase Lactate Dehydrogenase Troponin T C-Reactive Protein Total Protein Albumin Prealbumin Triglycerides Cholesterol LDL Cholesterol Direct HDL Cholesterol Urine pH Urine WBC (Auto) Urine Creatinine Urine Total Protein Fluid Total Protein Vancomycin Trough Rheumatoid Factor Complement C4 Miscellaneous Test Crossmatch 01/11/17 01/11/17 01/11/17 12:46 18:23 23:42 WBC RBC Hgb Hct MCV MCH MCHC RDW Plt Count Lymph % (Auto) [place] % (Auto) Lymph # [place] # Baso # Seg Neutrophils % Seg Neuts % (Manual) Lymphocytes % (Manual) Monocytes % (Manual) Eosinophils % (Manual) Basophils % (Manual) Nucleated RBC % Seg Neutrophils # Seg Neutrophils # Man Lymphocytes # (Manual) Monocytes # (Manual) Eosinophils # (Manual) Basophils # (Manual) PT INR Fibrinogen dRVVT Confirm Interp Factor V Activity POC ABG pH POC ABG pCO2 POC ABG pO2 ABG pO2 ABG HCO3 ABG Base Excess ABG Hemoglobin Oxyhemoglobin Sodium Potassium Chloride Carbon Dioxide BUN Creatinine Glucose POC Glucose 148 H 125 H 124 H Lactic Acid Calcium Phosphorus Magnesium Direct Bilirubin AST ALT Alkaline Phosphatase Lactate Dehydrogenase Troponin T C-Reactive Protein Total Protein Albumin Prealbumin Triglycerides Cholesterol LDL Cholesterol Direct HDL Cholesterol Urine pH Urine WBC (Auto) Urine Creatinine Urine Total Protein Fluid Total Protein Vancomycin Trough Rheumatoid Factor Complement C4 Miscellaneous Test Crossmatch 01/12/17 01/12/17 01/12/17 04:30 04:30 05:47 WBC 15.8 H RBC 3.31 L Hgb 8.9 L Hct 27.9 L MCV MCH 27 L MCHC RDW 17.4 H Plt Count Lymph % (Auto) [place] % (Auto) Lymph # [place] # Baso # Seg Neutrophils % Seg Neuts % (Manual) Lymphocytes % (Manual) Monocytes % (Manual) Eosinophils % (Manual) Basophils % (Manual) Nucleated RBC % Seg Neutrophils # Seg Neutrophils # Man Lymphocytes # (Manual) Monocytes # (Manual) Eosinophils # (Manual) Basophils # (Manual) PT INR Fibrinogen dRVVT Confirm Interp Factor V Activity POC ABG pH POC ABG pCO2 POC ABG pO2 ABG pO2 ABG HCO3 ABG Base Excess ABG Hemoglobin Oxyhemoglobin Sodium Potassium Chloride Carbon Dioxide BUN 57 H Creatinine Glucose 121 H POC Glucose 110 H Lactic Acid Calcium Phosphorus 2.10 L Magnesium Direct Bilirubin AST ALT Alkaline Phosphatase Lactate Dehydrogenase Troponin T C-Reactive Protein Total Protein Albumin Prealbumin Triglycerides Cholesterol LDL Cholesterol Direct HDL Cholesterol Urine pH Urine WBC (Auto) Urine Creatinine Urine Total Protein Fluid Total Protein Vancomycin Trough Rheumatoid Factor Complement C4 Miscellaneous Test Crossmatch 01/12/17 01/12/17 01/12/17 11:35 17:45 23:14 WBC RBC Hgb Hct MCV MCH MCHC RDW Plt Count Lymph % (Auto) [place] % (Auto) Lymph # [place] # Baso # Seg Neutrophils % Seg Neuts % (Manual) Lymphocytes % (Manual) Monocytes % (Manual) Eosinophils % (Manual) Basophils % (Manual) Nucleated RBC % Seg Neutrophils # Seg Neutrophils # Man Lymphocytes # (Manual) Monocytes # (Manual) Eosinophils # (Manual) Basophils # (Manual) PT INR Fibrinogen dRVVT Confirm Interp Factor V Activity POC ABG pH POC ABG pCO2 POC ABG pO2 ABG pO2 ABG HCO3 ABG Base Excess ABG Hemoglobin Oxyhemoglobin Sodium Potassium Chloride Carbon Dioxide BUN Creatinine Glucose POC Glucose 146 H 117 H 123 H Lactic Acid Calcium Phosphorus Magnesium Direct Bilirubin AST ALT Alkaline Phosphatase Lactate Dehydrogenase Troponin T C-Reactive Protein Total Protein Albumin Prealbumin Triglycerides Cholesterol LDL Cholesterol Direct HDL Cholesterol Urine pH Urine WBC (Auto) Urine Creatinine Urine Total Protein Fluid Total Protein Vancomycin Trough Rheumatoid Factor Complement C4 Miscellaneous Test Crossmatch 01/13/17 01/13/17 01/13/17 05:32 06:00 12:10 WBC RBC Hgb Hct MCV MCH MCHC RDW Plt Count Lymph % (Auto) [place] % (Auto) Lymph # [place] # Baso # Seg Neutrophils % Seg Neuts % (Manual) Lymphocytes % (Manual) Monocytes % (Manual) Eosinophils % (Manual) Basophils % (Manual) Nucleated RBC % Seg Neutrophils # Seg Neutrophils # Man Lymphocytes # (Manual) Monocytes # (Manual) Eosinophils # (Manual) Basophils # (Manual) PT INR Fibrinogen dRVVT Confirm Interp Factor V Activity POC ABG pH POC ABG pCO2 POC ABG pO2 ABG pO2 ABG HCO3 ABG Base Excess ABG Hemoglobin Oxyhemoglobin Sodium Potassium Chloride Carbon Dioxide BUN 80 H Creatinine 1.4 H Glucose 106 H POC Glucose 106 H Lactic Acid Calcium Phosphorus Magnesium Direct Bilirubin AST ALT Alkaline Phosphatase Lactate Dehydrogenase Troponin T C-Reactive Protein Total Protein Albumin Prealbumin Triglycerides Cholesterol LDL Cholesterol Direct HDL Cholesterol Urine pH Urine WBC (Auto) Urine Creatinine Urine Total Protein Fluid Total Protein 3.0 L Vancomycin Trough Rheumatoid Factor Complement C4 Miscellaneous Test Crossmatch 01/13/17 01/13/17 01/13/17 12:17 15:50 17:30 WBC RBC Hgb Hct MCV MCH MCHC RDW Plt Count Lymph % (Auto) [place] % (Auto) Lymph # [place] # Baso # Seg Neutrophils % Seg Neuts % (Manual) Lymphocytes % (Manual) Monocytes % (Manual) Eosinophils % (Manual) Basophils % (Manual) Nucleated RBC % Seg Neutrophils # Seg Neutrophils # Man Lymphocytes # (Manual) Monocytes # (Manual) Eosinophils # (Manual) Basophils # (Manual) PT 15.4 H INR 1.16 H Fibrinogen dRVVT Confirm Interp Factor V Activity POC ABG pH POC ABG pCO2 POC ABG pO2 ABG pO2 ABG HCO3 ABG Base Excess ABG Hemoglobin Oxyhemoglobin Sodium Potassium Chloride Carbon Dioxide BUN Creatinine Glucose POC Glucose 168 H 110 H Lactic Acid Calcium Phosphorus Magnesium Direct Bilirubin AST ALT Alkaline Phosphatase Lactate Dehydrogenase Troponin T C-Reactive Protein Total Protein Albumin Prealbumin Triglycerides Cholesterol LDL Cholesterol Direct HDL Cholesterol Urine pH Urine WBC (Auto) Urine Creatinine Urine Total Protein Fluid Total Protein Vancomycin Trough Rheumatoid Factor Complement C4 Miscellaneous Test Crossmatch 01/13/17 01/14/17 01/14/17 23:42 05:24 05:30 WBC RBC Hgb Hct MCV MCH MCHC RDW Plt Count Lymph % (Auto) [place] % (Auto) Lymph # [place] # Baso # Seg Neutrophils % Seg Neuts % (Manual) Lymphocytes % (Manual) Monocytes % (Manual) Eosinophils % (Manual) Basophils % (Manual) Nucleated RBC % Seg Neutrophils # Seg Neutrophils # Man Lymphocytes # (Manual) Monocytes # (Manual) Eosinophils # (Manual) Basophils # (Manual) PT INR Fibrinogen dRVVT Confirm Interp Factor V Activity POC ABG pH POC ABG pCO2 POC ABG pO2 ABG pO2 ABG HCO3 ABG Base Excess ABG Hemoglobin Oxyhemoglobin Sodium Potassium Chloride Carbon Dioxide BUN 58 H Creatinine Glucose 114 H POC Glucose 155 H 121 H Lactic Acid Calcium Phosphorus Magnesium Direct Bilirubin AST ALT Alkaline Phosphatase Lactate Dehydrogenase Troponin T C-Reactive Protein Total Protein Albumin Prealbumin Triglycerides Cholesterol LDL Cholesterol Direct HDL Cholesterol Urine pH Urine WBC (Auto) Urine Creatinine Urine Total Protein Fluid Total Protein Vancomycin Trough Rheumatoid Factor Complement C4 Miscellaneous Test Crossmatch 01/14/17 01/14/17 01/15/17 12:48 17:36 00:15 WBC RBC Hgb Hct MCV MCH MCHC RDW Plt Count Lymph % (Auto) [place] % (Auto) Lymph # [place] # Baso # Seg Neutrophils % Seg Neuts % (Manual) Lymphocytes % (Manual) Monocytes % (Manual) Eosinophils % (Manual) Basophils % (Manual) Nucleated RBC % Seg Neutrophils # Seg Neutrophils # Man Lymphocytes # (Manual) Monocytes # (Manual) Eosinophils # (Manual) Basophils # (Manual) PT INR Fibrinogen dRVVT Confirm Interp Factor V Activity POC ABG pH POC ABG pCO2 POC ABG pO2 ABG pO2 ABG HCO3 ABG Base Excess ABG Hemoglobin Oxyhemoglobin Sodium Potassium Chloride Carbon Dioxide BUN Creatinine Glucose POC Glucose 130 H 135 H 132 H Lactic Acid Calcium Phosphorus Magnesium Direct Bilirubin AST ALT Alkaline Phosphatase Lactate Dehydrogenase Troponin T C-Reactive Protein Total Protein Albumin Prealbumin Triglycerides Cholesterol LDL Cholesterol Direct HDL Cholesterol Urine pH Urine WBC (Auto) Urine Creatinine Urine Total Protein Fluid Total Protein Vancomycin Trough Rheumatoid Factor Complement C4 Miscellaneous Test Crossmatch 01/15/17 01/15/17 01/15/17 05:01 11:55 12:45 WBC 16.2 H RBC 3.00 L Hgb 8.1 L Hct 25.4 L MCV MCH 27 L MCHC RDW 17.6 H Plt Count Lymph % (Auto) 11.7 L [place] % (Auto) 7.8 H Lymph # [place] # 1.3 H Baso # Seg Neutrophils % 80.1 H Seg Neuts % (Manual) Lymphocytes % (Manual) Monocytes % (Manual) Eosinophils % (Manual) Basophils % (Manual) Nucleated RBC % Seg Neutrophils # 13.0 H Seg Neutrophils # Man Lymphocytes # (Manual) Monocytes # (Manual) Eosinophils # (Manual) Basophils # (Manual) PT INR Fibrinogen dRVVT Confirm Interp Factor V Activity POC ABG pH POC ABG pCO2 POC ABG pO2 ABG pO2 ABG HCO3 ABG Base Excess ABG Hemoglobin Oxyhemoglobin Sodium Potassium Chloride Carbon Dioxide BUN Creatinine Glucose POC Glucose 126 H 125 H Lactic Acid Calcium Phosphorus Magnesium Direct Bilirubin AST ALT Alkaline Phosphatase Lactate Dehydrogenase Troponin T C-Reactive Protein Total Protein Albumin Prealbumin Triglycerides Cholesterol LDL Cholesterol Direct HDL Cholesterol Urine pH Urine WBC (Auto) Urine Creatinine Urine Total Protein Fluid Total Protein Vancomycin Trough Rheumatoid Factor Complement C4 Miscellaneous Test Crossmatch 01/15/17 01/15/17 01/15/17 12:45 17:31 23:39 WBC RBC Hgb Hct MCV MCH MCHC RDW Plt Count Lymph % (Auto) [place] % (Auto) Lymph # [place] # Baso # Seg Neutrophils % Seg Neuts % (Manual) Lymphocytes % (Manual) Monocytes % (Manual) Eosinophils % (Manual) Basophils % (Manual) Nucleated RBC % Seg Neutrophils # Seg Neutrophils # Man Lymphocytes # (Manual) Monocytes # (Manual) Eosinophils # (Manual) Basophils # (Manual) PT INR Fibrinogen dRVVT Confirm Interp Factor V Activity POC ABG pH POC ABG pCO2 POC ABG pO2 ABG pO2 ABG HCO3 ABG Base Excess ABG Hemoglobin Oxyhemoglobin Sodium 136 L Potassium Chloride Carbon Dioxide BUN 87 H Creatinine 1.7 H Glucose 108 H POC Glucose 129 H 112 H Lactic Acid Calcium Phosphorus Magnesium Direct Bilirubin AST ALT Alkaline Phosphatase Lactate Dehydrogenase Troponin T C-Reactive Protein Total Protein Albumin Prealbumin Triglycerides Cholesterol LDL Cholesterol Direct HDL Cholesterol Urine pH Urine WBC (Auto) Urine Creatinine Urine Total Protein Fluid Total Protein Vancomycin Trough Rheumatoid Factor Complement C4 Miscellaneous Test Crossmatch 01/16/17 01/16/17 01/16/17 05:23 11:42 12:32 WBC RBC Hgb Hct MCV MCH MCHC RDW Plt Count Lymph % (Auto) [place] % (Auto) Lymph # [place] # Baso # Seg Neutrophils % Seg Neuts % (Manual) Lymphocytes % (Manual) Monocytes % (Manual) Eosinophils % (Manual) Basophils % (Manual) Nucleated RBC % Seg Neutrophils # Seg Neutrophils # Man Lymphocytes # (Manual) Monocytes # (Manual) Eosinophils # (Manual) Basophils # (Manual) PT INR Fibrinogen dRVVT Confirm Interp Factor V Activity POC ABG pH 7.499 H POC ABG pCO2 30.9 L POC ABG pO2 51 L ABG pO2 ABG HCO3 ABG Base Excess ABG Hemoglobin Oxyhemoglobin Sodium Potassium Chloride Carbon Dioxide BUN Creatinine Glucose POC Glucose 118 H 133 H Lactic Acid Calcium Phosphorus Magnesium Direct Bilirubin AST ALT Alkaline Phosphatase Lactate Dehydrogenase Troponin T C-Reactive Protein Total Protein Albumin Prealbumin Triglycerides Cholesterol LDL Cholesterol Direct HDL Cholesterol Urine pH Urine WBC (Auto) Urine Creatinine Urine Total Protein Fluid Total Protein Vancomycin Trough Rheumatoid Factor Complement C4 Miscellaneous Test Crossmatch 01/16/17 01/16/17 01/16/17 17:52 23:57 Unknown WBC RBC Hgb Hct MCV MCH MCHC RDW Plt Count Lymph % (Auto) [place] % (Auto) Lymph # [place] # Baso # Seg Neutrophils % Seg Neuts % (Manual) Lymphocytes % (Manual) Monocytes % (Manual) Eosinophils % (Manual) Basophils % (Manual) Nucleated RBC % Seg Neutrophils # Seg Neutrophils # Man Lymphocytes # (Manual) Monocytes # (Manual) Eosinophils # (Manual) Basophils # (Manual) PT INR Fibrinogen dRVVT Confirm Interp Factor V Activity POC ABG pH POC ABG pCO2 POC ABG pO2 ABG pO2 ABG HCO3 ABG Base Excess ABG Hemoglobin Oxyhemoglobin Sodium 135 L Potassium Chloride Carbon Dioxide BUN 101 H Creatinine 1.8 H Glucose 117 H POC Glucose 130 H 143 H Lactic Acid Calcium Phosphorus 5.80 H Magnesium Direct Bilirubin AST ALT Alkaline Phosphatase Lactate Dehydrogenase Troponin T C-Reactive Protein Total Protein Albumin Prealbumin Triglycerides Cholesterol LDL Cholesterol Direct HDL Cholesterol Urine pH Urine WBC (Auto) Urine Creatinine Urine Total Protein Fluid Total Protein Vancomycin Trough Rheumatoid Factor Complement C4 Miscellaneous Test Crossmatch 01/17/17 01/17/17 01/17/17 05:30 05:46 11:49 WBC RBC Hgb Hct MCV MCH MCHC RDW Plt Count Lymph % (Auto) [place] % (Auto) Lymph # [place] # Baso # Seg Neutrophils % Seg Neuts % (Manual) Lymphocytes % (Manual) Monocytes % (Manual) Eosinophils % (Manual) Basophils % (Manual) Nucleated RBC % Seg Neutrophils # Seg Neutrophils # Man Lymphocytes # (Manual) Monocytes # (Manual) Eosinophils # (Manual) Basophils # (Manual) PT INR Fibrinogen dRVVT Confirm Interp Factor V Activity POC ABG pH POC ABG pCO2 POC ABG pO2 ABG pO2 ABG HCO3 ABG Base Excess ABG Hemoglobin Oxyhemoglobin Sodium 134 L Potassium Chloride 95.8 L Carbon Dioxide BUN 66 H Creatinine 1.3 H Glucose 138 H POC Glucose 147 H 124 H Lactic Acid Calcium Phosphorus Magnesium Direct Bilirubin AST ALT Alkaline Phosphatase 254 H Lactate Dehydrogenase Troponin T C-Reactive Protein Total Protein Albumin 1.3 L Prealbumin Triglycerides Cholesterol LDL Cholesterol Direct HDL Cholesterol Urine pH Urine WBC (Auto) Urine Creatinine Urine Total Protein Fluid Total Protein Vancomycin Trough Rheumatoid Factor Complement C4 Miscellaneous Test Crossmatch 01/17/17 01/17/17 01/18/17 17:30 23:41 05:15 WBC RBC Hgb Hct MCV MCH MCHC RDW Plt Count Lymph % (Auto) [place] % (Auto) Lymph # [place] # Baso # Seg Neutrophils % Seg Neuts % (Manual) Lymphocytes % (Manual) Monocytes % (Manual) Eosinophils % (Manual) Basophils % (Manual) Nucleated RBC % Seg Neutrophils # Seg Neutrophils # Man Lymphocytes # (Manual) Monocytes # (Manual) Eosinophils # (Manual) Basophils # (Manual) PT INR Fibrinogen dRVVT Confirm Interp Factor V Activity POC ABG pH POC ABG pCO2 POC ABG pO2 ABG pO2 ABG HCO3 ABG Base Excess ABG Hemoglobin Oxyhemoglobin Sodium Potassium Chloride Carbon Dioxide BUN 89 H Creatinine 1.7 H Glucose 118 H POC Glucose 137 H 119 H Lactic Acid Calcium Phosphorus Magnesium Direct Bilirubin AST ALT Alkaline Phosphatase Lactate Dehydrogenase Troponin T C-Reactive Protein Total Protein Albumin Prealbumin Triglycerides Cholesterol LDL Cholesterol Direct HDL Cholesterol Urine pH Urine WBC (Auto) Urine Creatinine Urine Total Protein Fluid Total Protein Vancomycin Trough Rheumatoid Factor Complement C4 Miscellaneous Test Crossmatch 01/18/17 01/18/17 01/18/17 05:19 12:16 18:11 WBC RBC Hgb Hct MCV MCH MCHC RDW Plt Count Lymph % (Auto) [place] % (Auto) Lymph # [place] # Baso # Seg Neutrophils % Seg Neuts % (Manual) Lymphocytes % (Manual) Monocytes % (Manual) Eosinophils % (Manual) Basophils % (Manual) Nucleated RBC % Seg Neutrophils # Seg Neutrophils # Man Lymphocytes # (Manual) Monocytes # (Manual) Eosinophils # (Manual) Basophils # (Manual) PT INR Fibrinogen dRVVT Confirm Interp Factor V Activity POC ABG pH POC ABG pCO2 POC ABG pO2 ABG pO2 ABG HCO3 ABG Base Excess ABG Hemoglobin Oxyhemoglobin Sodium Potassium Chloride Carbon Dioxide BUN Creatinine Glucose POC Glucose 134 H 188 H 113 H Lactic Acid Calcium Phosphorus Magnesium Direct Bilirubin AST ALT Alkaline Phosphatase Lactate Dehydrogenase Troponin T C-Reactive Protein Total Protein Albumin Prealbumin Triglycerides Cholesterol LDL Cholesterol Direct HDL Cholesterol Urine pH Urine WBC (Auto) Urine Creatinine Urine Total Protein Fluid Total Protein Vancomycin Trough Rheumatoid Factor Complement C4 Miscellaneous Test Crossmatch 01/19/17 01/19/17 01/19/17 00:00 05:30 05:36 WBC RBC Hgb Hct MCV MCH MCHC RDW Plt Count Lymph % (Auto) [place] % (Auto) Lymph # [place] # Baso # Seg Neutrophils % Seg Neuts % (Manual) Lymphocytes % (Manual) Monocytes % (Manual) Eosinophils % (Manual) Basophils % (Manual) Nucleated RBC % Seg Neutrophils # Seg Neutrophils # Man Lymphocytes # (Manual) Monocytes # (Manual) Eosinophils # (Manual) Basophils # (Manual) PT INR Fibrinogen dRVVT Confirm Interp Factor V Activity POC ABG pH POC ABG pCO2 POC ABG pO2 ABG pO2 ABG HCO3 ABG Base Excess ABG Hemoglobin Oxyhemoglobin Sodium Potassium Chloride Carbon Dioxide BUN 70 H Creatinine 1.5 H Glucose 121 H POC Glucose 137 H 155 H Lactic Acid Calcium Phosphorus 2.10 L D Magnesium Direct Bilirubin AST ALT Alkaline Phosphatase Lactate Dehydrogenase Troponin T C-Reactive Protein Total Protein Albumin Prealbumin Triglycerides Cholesterol LDL Cholesterol Direct HDL Cholesterol Urine pH Urine WBC (Auto) Urine Creatinine Urine Total Protein Fluid Total Protein Vancomycin Trough Rheumatoid Factor Complement C4 Miscellaneous Test Crossmatch 01/19/17 01/19/17 01/19/17 11:59 15:32 17:57 WBC RBC Hgb Hct MCV MCH MCHC RDW Plt Count Lymph % (Auto) [place] % (Auto) Lymph # [place] # Baso # Seg Neutrophils % Seg Neuts % (Manual) Lymphocytes % (Manual) Monocytes % (Manual) Eosinophils % (Manual) Basophils % (Manual) Nucleated RBC % Seg Neutrophils # Seg Neutrophils # Man Lymphocytes # (Manual) Monocytes # (Manual) Eosinophils # (Manual) Basophils # (Manual) PT INR Fibrinogen dRVVT Confirm Interp Factor V Activity POC ABG pH POC ABG pCO2 33.1 L POC ABG pO2 76 L ABG pO2 ABG HCO3 ABG Base Excess ABG Hemoglobin Oxyhemoglobin Sodium Potassium Chloride Carbon Dioxide BUN Creatinine Glucose POC Glucose 156 H 129 H Lactic Acid Calcium Phosphorus Magnesium Direct Bilirubin AST ALT Alkaline Phosphatase Lactate Dehydrogenase Troponin T C-Reactive Protein Total Protein Albumin Prealbumin Triglycerides Cholesterol LDL Cholesterol Direct HDL Cholesterol Urine pH Urine WBC (Auto) Urine Creatinine Urine Total Protein Fluid Total Protein Vancomycin Trough Rheumatoid Factor Complement C4 Miscellaneous Test Crossmatch 01/19/17 01/20/17 01/20/17 23:49 04:00 05:21 WBC RBC Hgb Hct MCV MCH MCHC RDW Plt Count Lymph % (Auto) [place] % (Auto) Lymph # [place] # Baso # Seg Neutrophils % Seg Neuts % (Manual) Lymphocytes % (Manual) Monocytes % (Manual) Eosinophils % (Manual) Basophils % (Manual) Nucleated RBC % Seg Neutrophils # Seg Neutrophils # Man Lymphocytes # (Manual) Monocytes # (Manual) Eosinophils # (Manual) Basophils # (Manual) PT INR Fibrinogen dRVVT Confirm Interp Factor V Activity POC ABG pH POC ABG pCO2 POC ABG pO2 ABG pO2 ABG HCO3 ABG Base Excess ABG Hemoglobin Oxyhemoglobin Sodium Potassium Chloride Carbon Dioxide BUN 96 H Creatinine 1.9 H Glucose 106 H POC Glucose 125 H 130 H Lactic Acid Calcium Phosphorus 2.40 L Magnesium Direct Bilirubin AST ALT Alkaline Phosphatase Lactate Dehydrogenase Troponin T C-Reactive Protein Total Protein Albumin Prealbumin Triglycerides Cholesterol LDL Cholesterol Direct HDL Cholesterol Urine pH Urine WBC (Auto) Urine Creatinine Urine Total Protein Fluid Total Protein Vancomycin Trough Rheumatoid Factor Complement C4 Miscellaneous Test Crossmatch 01/20/17 01/20/17 01/20/17 11:58 12:17 17:26 WBC RBC Hgb Hct MCV MCH MCHC RDW Plt Count Lymph % (Auto) [place] % (Auto) Lymph # [place] # Baso # Seg Neutrophils % Seg Neuts % (Manual) Lymphocytes % (Manual) Monocytes % (Manual) Eosinophils % (Manual) Basophils % (Manual) Nucleated RBC % Seg Neutrophils # Seg Neutrophils # Man Lymphocytes # (Manual) Monocytes # (Manual) Eosinophils # (Manual) Basophils # (Manual) PT INR Fibrinogen dRVVT Confirm Interp Factor V Activity POC ABG pH POC ABG pCO2 POC ABG pO2 70 L ABG pO2 ABG HCO3 ABG Base Excess ABG Hemoglobin Oxyhemoglobin Sodium Potassium Chloride Carbon Dioxide BUN Creatinine Glucose POC Glucose 118 H 154 H Lactic Acid Calcium Phosphorus Magnesium Direct Bilirubin AST ALT Alkaline Phosphatase Lactate Dehydrogenase Troponin T C-Reactive Protein Total Protein Albumin Prealbumin Triglycerides Cholesterol LDL Cholesterol Direct HDL Cholesterol Urine pH Urine WBC (Auto) Urine Creatinine Urine Total Protein Fluid Total Protein Vancomycin Trough Rheumatoid Factor Complement C4 Miscellaneous Test Crossmatch 01/21/17 01/21/17 01/21/17 04:00 04:56 11:46 WBC RBC Hgb Hct MCV MCH MCHC RDW Plt Count Lymph % (Auto) [place] % (Auto) Lymph # [place] # Baso # Seg Neutrophils % Seg Neuts % (Manual) Lymphocytes % (Manual) Monocytes % (Manual) Eosinophils % (Manual) Basophils % (Manual) Nucleated RBC % Seg Neutrophils # Seg Neutrophils # Man Lymphocytes # (Manual) Monocytes # (Manual) Eosinophils # (Manual) Basophils # (Manual) PT INR Fibrinogen dRVVT Confirm Interp Factor V Activity POC ABG pH POC ABG pCO2 POC ABG pO2 ABG pO2 ABG HCO3 ABG Base Excess ABG Hemoglobin Oxyhemoglobin Sodium Potassium 3.5 L Chloride 97.4 L Carbon Dioxide BUN 66 H Creatinine 1.4 H Glucose POC Glucose 116 H 106 H Lactic Acid Calcium Phosphorus 2.10 L Magnesium Direct Bilirubin AST ALT Alkaline Phosphatase Lactate Dehydrogenase Troponin T C-Reactive Protein Total Protein Albumin Prealbumin Triglycerides Cholesterol LDL Cholesterol Direct HDL Cholesterol Urine pH Urine WBC (Auto) Urine Creatinine Urine Total Protein Fluid Total Protein Vancomycin Trough Rheumatoid Factor Complement C4 Miscellaneous Test Crossmatch 01/21/17 01/21/17 01/22/17 17:25 23:49 05:35 WBC RBC Hgb Hct MCV MCH MCHC RDW Plt Count Lymph % (Auto) [place] % (Auto) Lymph # [place] # Baso # Seg Neutrophils % Seg Neuts % (Manual) Lymphocytes % (Manual) Monocytes % (Manual) Eosinophils % (Manual) Basophils % (Manual) Nucleated RBC % Seg Neutrophils # Seg Neutrophils # Man Lymphocytes # (Manual) Monocytes # (Manual) Eosinophils # (Manual) Basophils # (Manual) PT INR Fibrinogen dRVVT Confirm Interp Factor V Activity POC ABG pH POC ABG pCO2 POC ABG pO2 ABG pO2 ABG HCO3 ABG Base Excess ABG Hemoglobin Oxyhemoglobin Sodium Potassium Chloride Carbon Dioxide BUN Creatinine Glucose POC Glucose 106 H 133 H 107 H Lactic Acid Calcium Phosphorus Magnesium Direct Bilirubin AST ALT Alkaline Phosphatase Lactate Dehydrogenase Troponin T C-Reactive Protein Total Protein Albumin Prealbumin Triglycerides Cholesterol LDL Cholesterol Direct HDL Cholesterol Urine pH Urine WBC (Auto) Urine Creatinine Urine Total Protein Fluid Total Protein Vancomycin Trough Rheumatoid Factor Complement C4 Miscellaneous Test Crossmatch 01/22/17 01/22/17 01/22/17 07:20 07:20 11:31 WBC RBC 2.75 L Hgb 7.5 L Hct 22.7 L MCV MCH 27 L MCHC RDW 17.5 H Plt Count Lymph % (Auto) [place] % (Auto) Lymph # [place] # Baso # Seg Neutrophils % Seg Neuts % (Manual) Lymphocytes % (Manual) Monocytes % (Manual) Eosinophils % (Manual) Basophils % (Manual) Nucleated RBC % Seg Neutrophils # Seg Neutrophils # Man Lymphocytes # (Manual) Monocytes # (Manual) Eosinophils # (Manual) Basophils # (Manual) PT INR Fibrinogen dRVVT Confirm Interp Factor V Activity POC ABG pH POC ABG pCO2 POC ABG pO2 ABG pO2 ABG HCO3 ABG Base Excess ABG Hemoglobin Oxyhemoglobin Sodium Potassium 3.3 L Chloride Carbon Dioxide BUN 42 H Creatinine Glucose 105 H POC Glucose 124 H Lactic Acid Calcium Phosphorus 1.70 L Magnesium Direct Bilirubin AST ALT Alkaline Phosphatase Lactate Dehydrogenase Troponin T C-Reactive Protein Total Protein Albumin Prealbumin Triglycerides Cholesterol LDL Cholesterol Direct HDL Cholesterol Urine pH Urine WBC (Auto) Urine Creatinine Urine Total Protein Fluid Total Protein Vancomycin Trough Rheumatoid Factor Complement C4 Miscellaneous Test Crossmatch 01/22/17 01/22/17 01/23/17 17:16 23:35 05:35 WBC RBC Hgb Hct MCV MCH MCHC RDW Plt Count Lymph % (Auto) [place] % (Auto) Lymph # [place] # Baso # Seg Neutrophils % Seg Neuts % (Manual) Lymphocytes % (Manual) Monocytes % (Manual) Eosinophils % (Manual) Basophils % (Manual) Nucleated RBC % Seg Neutrophils # Seg Neutrophils # Man Lymphocytes # (Manual) Monocytes # (Manual) Eosinophils # (Manual) Basophils # (Manual) PT INR Fibrinogen dRVVT Confirm Interp Factor V Activity POC ABG pH POC ABG pCO2 POC ABG pO2 ABG pO2 ABG HCO3 ABG Base Excess ABG Hemoglobin Oxyhemoglobin Sodium Potassium Chloride Carbon Dioxide BUN Creatinine Glucose POC Glucose 135 H 120 H 111 H Lactic Acid Calcium Phosphorus Magnesium Direct Bilirubin AST ALT Alkaline Phosphatase Lactate Dehydrogenase Troponin T C-Reactive Protein Total Protein Albumin Prealbumin Triglycerides Cholesterol LDL Cholesterol Direct HDL Cholesterol Urine pH Urine WBC (Auto) Urine Creatinine Urine Total Protein Fluid Total Protein Vancomycin Trough Rheumatoid Factor Complement C4 Miscellaneous Test Crossmatch 01/23/17 01/23/17 01/23/17 06:10 17:27 23:44 WBC RBC Hgb Hct MCV MCH MCHC RDW Plt Count Lymph % (Auto) [place] % (Auto) Lymph # [place] # Baso # Seg Neutrophils % Seg Neuts % (Manual) Lymphocytes % (Manual) Monocytes % (Manual) Eosinophils % (Manual) Basophils % (Manual) Nucleated RBC % Seg Neutrophils # Seg Neutrophils # Man Lymphocytes # (Manual) Monocytes # (Manual) Eosinophils # (Manual) Basophils # (Manual) PT INR Fibrinogen dRVVT Confirm Interp Factor V Activity POC ABG pH POC ABG pCO2 POC ABG pO2 ABG pO2 ABG HCO3 ABG Base Excess ABG Hemoglobin Oxyhemoglobin Sodium Potassium 3.3 L Chloride Carbon Dioxide BUN 66 H Creatinine 1.3 H Glucose 109 H POC Glucose 120 H 115 H Lactic Acid Calcium Phosphorus 2.20 L D Magnesium Direct Bilirubin AST ALT Alkaline Phosphatase Lactate Dehydrogenase Troponin T C-Reactive Protein Total Protein Albumin Prealbumin Triglycerides Cholesterol LDL Cholesterol Direct HDL Cholesterol Urine pH Urine WBC (Auto) Urine Creatinine Urine Total Protein Fluid Total Protein Vancomycin Trough Rheumatoid Factor Complement C4 Miscellaneous Test Crossmatch 01/24/17 01/24/17 01/24/17 05:19 05:50 12:19 WBC RBC Hgb Hct MCV MCH MCHC RDW Plt Count Lymph % (Auto) [place] % (Auto) Lymph # [place] # Baso # Seg Neutrophils % Seg Neuts % (Manual) Lymphocytes % (Manual) Monocytes % (Manual) Eosinophils % (Manual) Basophils % (Manual) Nucleated RBC % Seg Neutrophils # Seg Neutrophils # Man Lymphocytes # (Manual) Monocytes # (Manual) Eosinophils # (Manual) Basophils # (Manual) PT INR Fibrinogen dRVVT Confirm Interp Factor V Activity POC ABG pH POC ABG pCO2 POC ABG pO2 ABG pO2 ABG HCO3 ABG Base Excess ABG Hemoglobin Oxyhemoglobin Sodium Potassium Chloride Carbon Dioxide BUN 47 H Creatinine Glucose 117 H POC Glucose 126 H 119 H Lactic Acid Calcium Phosphorus 2.30 L Magnesium 1.60 L Direct Bilirubin AST ALT Alkaline Phosphatase Lactate Dehydrogenase Troponin T C-Reactive Protein Total Protein Albumin Prealbumin Triglycerides Cholesterol LDL Cholesterol Direct HDL Cholesterol Urine pH Urine WBC (Auto) Urine Creatinine Urine Total Protein Fluid Total Protein Vancomycin Trough Rheumatoid Factor Complement C4 Miscellaneous Test Crossmatch 01/24/17 01/25/17 01/25/17 17:08 00:37 04:00 WBC RBC Hgb Hct MCV MCH MCHC RDW Plt Count Lymph % (Auto) [place] % (Auto) Lymph # [place] # Baso # Seg Neutrophils % Seg Neuts % (Manual) Lymphocytes % (Manual) Monocytes % (Manual) Eosinophils % (Manual) Basophils % (Manual) Nucleated RBC % Seg Neutrophils # Seg Neutrophils # Man Lymphocytes # (Manual) Monocytes # (Manual) Eosinophils # (Manual) Basophils # (Manual) PT INR Fibrinogen dRVVT Confirm Interp Factor V Activity POC ABG pH POC ABG pCO2 POC ABG pO2 ABG pO2 ABG HCO3 ABG Base Excess ABG Hemoglobin Oxyhemoglobin Sodium Potassium Chloride Carbon Dioxide BUN 72 H Creatinine 1.3 H Glucose POC Glucose 127 H 110 H Lactic Acid Calcium Phosphorus Magnesium Direct Bilirubin AST ALT Alkaline Phosphatase Lactate Dehydrogenase Troponin T C-Reactive Protein Total Protein Albumin Prealbumin Triglycerides Cholesterol LDL Cholesterol Direct HDL Cholesterol Urine pH Urine WBC (Auto) Urine Creatinine Urine Total Protein Fluid Total Protein Vancomycin Trough Rheumatoid Factor Complement C4 Miscellaneous Test Crossmatch 01/25/17 01/25/17 01/25/17 04:00 11:15 13:05 WBC RBC 2.49 L Hgb 6.7 L Hct 20.9 L MCV MCH 27 L MCHC RDW 18.8 H Plt Count Lymph % (Auto) [place] % (Auto) 10.1 H Lymph # [place] # 1.0 H Baso # Seg Neutrophils % Seg Neuts % (Manual) Lymphocytes % (Manual) Monocytes % (Manual) Eosinophils % (Manual) Basophils % (Manual) Nucleated RBC % Seg Neutrophils # Seg Neutrophils # Man Lymphocytes # (Manual) Monocytes # (Manual) Eosinophils # (Manual) Basophils # (Manual) PT INR Fibrinogen dRVVT Confirm Interp Factor V Activity POC ABG pH POC ABG pCO2 POC ABG pO2 ABG pO2 ABG HCO3 ABG Base Excess ABG Hemoglobin Oxyhemoglobin Sodium Potassium Chloride Carbon Dioxide BUN Creatinine Glucose POC Glucose 128 H Lactic Acid Calcium Phosphorus Magnesium Direct Bilirubin AST ALT Alkaline Phosphatase Lactate Dehydrogenase Troponin T C-Reactive Protein Total Protein Albumin Prealbumin Triglycerides Cholesterol LDL Cholesterol Direct HDL Cholesterol Urine pH Urine WBC (Auto) Urine Creatinine Urine Total Protein Fluid Total Protein Vancomycin Trough Rheumatoid Factor Complement C4 Miscellaneous Test Crossmatch See Detail 01/25/17 01/25/17 01/26/17 18:02 23:07 01:20 WBC RBC Hgb Hct MCV MCH MCHC RDW Plt Count Lymph % (Auto) [place] % (Auto) Lymph # [place] # Baso # Seg Neutrophils % Seg Neuts % (Manual) Lymphocytes % (Manual) Monocytes % (Manual) Eosinophils % (Manual) Basophils % (Manual) Nucleated RBC % Seg Neutrophils # Seg Neutrophils # Man Lymphocytes # (Manual) Monocytes # (Manual) Eosinophils # (Manual) Basophils # (Manual) PT INR Fibrinogen dRVVT Confirm Interp Factor V Activity POC ABG pH POC ABG pCO2 POC ABG pO2 ABG pO2 ABG HCO3 ABG Base Excess ABG Hemoglobin Oxyhemoglobin Sodium Potassium Chloride Carbon Dioxide BUN Creatinine Glucose POC Glucose 120 H 123 H 112 H Lactic Acid Calcium Phosphorus Magnesium Direct Bilirubin AST ALT Alkaline Phosphatase Lactate Dehydrogenase Troponin T C-Reactive Protein Total Protein Albumin Prealbumin Triglycerides Cholesterol LDL Cholesterol Direct HDL Cholesterol Urine pH Urine WBC (Auto) Urine Creatinine Urine Total Protein Fluid Total Protein Vancomycin Trough Rheumatoid Factor Complement C4 Miscellaneous Test Crossmatch 01/26/17 01/26/17 01/26/17 04:20 04:20 11:23 WBC 13.1 H RBC 3.28 L Hgb 9.0 L Hct 26.9 L D MCV MCH 27 L MCHC RDW 17.2 H Plt Count Lymph % (Auto) [place] % (Auto) 9.0 H Lymph # [place] # 1.2 H Baso # Seg Neutrophils % 73.1 H Seg Neuts % (Manual) Lymphocytes % (Manual) Monocytes % (Manual) Eosinophils % (Manual) Basophils % (Manual) Nucleated RBC % Seg Neutrophils # 9.6 H Seg Neutrophils # Man Lymphocytes # (Manual) Monocytes # (Manual) Eosinophils # (Manual) Basophils # (Manual) PT INR Fibrinogen dRVVT Confirm Interp Factor V Activity POC ABG pH POC ABG pCO2 POC ABG pO2 ABG pO2 ABG HCO3 ABG Base Excess ABG Hemoglobin Oxyhemoglobin Sodium Potassium Chloride Carbon Dioxide BUN 51 H Creatinine Glucose 117 H POC Glucose 125 H Lactic Acid Calcium Phosphorus Magnesium Direct Bilirubin AST ALT Alkaline Phosphatase Lactate Dehydrogenase Troponin T C-Reactive Protein Total Protein Albumin Prealbumin Triglycerides Cholesterol LDL Cholesterol Direct HDL Cholesterol Urine pH Urine WBC (Auto) Urine Creatinine Urine Total Protein Fluid Total Protein Vancomycin Trough Rheumatoid Factor Complement C4 Miscellaneous Test Crossmatch 01/26/17 01/27/17 01/27/17 17:11 00:30 04:00 WBC RBC Hgb Hct MCV MCH MCHC RDW Plt Count Lymph % (Auto) [place] % (Auto) Lymph # [place] # Baso # Seg Neutrophils % Seg Neuts % (Manual) Lymphocytes % (Manual) Monocytes % (Manual) Eosinophils % (Manual) Basophils % (Manual) Nucleated RBC % Seg Neutrophils # Seg Neutrophils # Man Lymphocytes # (Manual) Monocytes # (Manual) Eosinophils # (Manual) Basophils # (Manual) PT INR Fibrinogen dRVVT Confirm Interp Factor V Activity POC ABG pH POC ABG pCO2 POC ABG pO2 ABG pO2 ABG HCO3 ABG Base Excess ABG Hemoglobin Oxyhemoglobin Sodium Potassium Chloride 97.7 L Carbon Dioxide 21 L BUN 79 H Creatinine 1.7 H D Glucose 112 H POC Glucose 133 H 135 H Lactic Acid Calcium Phosphorus 5.00 H D Magnesium Direct Bilirubin AST ALT Alkaline Phosphatase Lactate Dehydrogenase Troponin T C-Reactive Protein Total Protein Albumin Prealbumin Triglycerides Cholesterol LDL Cholesterol Direct HDL Cholesterol Urine pH Urine WBC (Auto) Urine Creatinine Urine Total Protein Fluid Total Protein Vancomycin Trough Rheumatoid Factor Complement C4 Miscellaneous Test Crossmatch 01/27/17 01/27/17 01/27/17 05:12 12:18 17:25 WBC RBC Hgb Hct MCV MCH MCHC RDW Plt Count Lymph % (Auto) [place] % (Auto) Lymph # [place] # Baso # Seg Neutrophils % Seg Neuts % (Manual) Lymphocytes % (Manual) Monocytes % (Manual) Eosinophils % (Manual) Basophils % (Manual) Nucleated RBC % Seg Neutrophils # Seg Neutrophils # Man Lymphocytes # (Manual) Monocytes # (Manual) Eosinophils # (Manual) Basophils # (Manual) PT INR Fibrinogen dRVVT Confirm Interp Factor V Activity POC ABG pH POC ABG pCO2 POC ABG pO2 ABG pO2 ABG HCO3 ABG Base Excess ABG Hemoglobin Oxyhemoglobin Sodium Potassium Chloride Carbon Dioxide BUN Creatinine Glucose POC Glucose 116 H 153 H 152 H Lactic Acid Calcium Phosphorus Magnesium Direct Bilirubin AST ALT Alkaline Phosphatase Lactate Dehydrogenase Troponin T C-Reactive Protein Total Protein Albumin Prealbumin Triglycerides Cholesterol LDL Cholesterol Direct HDL Cholesterol Urine pH Urine WBC (Auto) Urine Creatinine Urine Total Protein Fluid Total Protein Vancomycin Trough Rheumatoid Factor Complement C4 Miscellaneous Test Crossmatch 01/27/17 01/28/17 01/28/17 23:42 04:00 04:00 WBC 14.4 H RBC 2.82 L Hgb 7.4 L Hct 23.5 L MCV MCH 26 L MCHC RDW 17.6 H Plt Count Lymph % (Auto) 10.2 L [place] % (Auto) 11.0 H Lymph # [place] # 1.6 H Baso # Seg Neutrophils % 78.0 H Seg Neuts % (Manual) Lymphocytes % (Manual) Monocytes % (Manual) Eosinophils % (Manual) Basophils % (Manual) Nucleated RBC % Seg Neutrophils # 11.3 H Seg Neutrophils # Man Lymphocytes # (Manual) Monocytes # (Manual) Eosinophils # (Manual) Basophils # (Manual) PT INR Fibrinogen dRVVT Confirm Interp Factor V Activity POC ABG pH POC ABG pCO2 POC ABG pO2 ABG pO2 ABG HCO3 ABG Base Excess ABG Hemoglobin Oxyhemoglobin Sodium Potassium Chloride Carbon Dioxide BUN 55 H Creatinine 1.3 H Glucose 114 H POC Glucose 121 H Lactic Acid Calcium Phosphorus Magnesium Direct Bilirubin AST ALT Alkaline Phosphatase Lactate Dehydrogenase Troponin T C-Reactive Protein Total Protein Albumin 1.4 L Prealbumin Triglycerides Cholesterol LDL Cholesterol Direct HDL Cholesterol Urine pH Urine WBC (Auto) Urine Creatinine Urine Total Protein Fluid Total Protein Vancomycin Trough Rheumatoid Factor Complement C4 Miscellaneous Test Crossmatch 01/28/17 01/28/17 01/29/17 04:59 12:30 00:02 WBC RBC Hgb Hct MCV MCH MCHC RDW Plt Count Lymph % (Auto) [place] % (Auto) Lymph # [place] # Baso # Seg Neutrophils % Seg Neuts % (Manual) Lymphocytes % (Manual) Monocytes % (Manual) Eosinophils % (Manual) Basophils % (Manual) Nucleated RBC % Seg Neutrophils # Seg Neutrophils # Man Lymphocytes # (Manual) Monocytes # (Manual) Eosinophils # (Manual) Basophils # (Manual) PT INR Fibrinogen dRVVT Confirm Interp Factor V Activity POC ABG pH POC ABG pCO2 POC ABG pO2 ABG pO2 ABG HCO3 ABG Base Excess ABG Hemoglobin Oxyhemoglobin Sodium Potassium Chloride Carbon Dioxide BUN Creatinine Glucose POC Glucose 126 H 119 H 138 H Lactic Acid Calcium Phosphorus Magnesium Direct Bilirubin AST ALT Alkaline Phosphatase Lactate Dehydrogenase Troponin T C-Reactive Protein Total Protein Albumin Prealbumin Triglycerides Cholesterol LDL Cholesterol Direct HDL Cholesterol Urine pH Urine WBC (Auto) Urine Creatinine Urine Total Protein Fluid Total Protein Vancomycin Trough Rheumatoid Factor Complement C4 Miscellaneous Test Crossmatch 01/29/17 01/29/17 01/29/17 04:58 06:15 11:35 WBC RBC Hgb Hct MCV MCH MCHC RDW Plt Count Lymph % (Auto) [place] % (Auto) Lymph # [place] # Baso # Seg Neutrophils % Seg Neuts % (Manual) Lymphocytes % (Manual) Monocytes % (Manual) Eosinophils % (Manual) Basophils % (Manual) Nucleated RBC % Seg Neutrophils # Seg Neutrophils # Man Lymphocytes # (Manual) Monocytes # (Manual) Eosinophils # (Manual) Basophils # (Manual) PT INR Fibrinogen dRVVT Confirm Interp Factor V Activity POC ABG pH POC ABG pCO2 POC ABG pO2 ABG pO2 ABG HCO3 ABG Base Excess ABG Hemoglobin Oxyhemoglobin Sodium Potassium Chloride Carbon Dioxide BUN 85 H Creatinine 1.7 H Glucose 105 H POC Glucose 114 H 110 H Lactic Acid Calcium Phosphorus Magnesium 2.40 H Direct Bilirubin AST ALT Alkaline Phosphatase Lactate Dehydrogenase Troponin T C-Reactive Protein Total Protein Albumin Prealbumin Triglycerides Cholesterol LDL Cholesterol Direct HDL Cholesterol Urine pH Urine WBC (Auto) Urine Creatinine Urine Total Protein Fluid Total Protein Vancomycin Trough Rheumatoid Factor Complement C4 Miscellaneous Test Crossmatch 01/29/17 01/30/17 01/30/17 23:41 05:12 11:26 WBC RBC Hgb Hct MCV MCH MCHC RDW Plt Count Lymph % (Auto) [place] % (Auto) Lymph # [place] # Baso # Seg Neutrophils % Seg Neuts % (Manual) Lymphocytes % (Manual) Monocytes % (Manual) Eosinophils % (Manual) Basophils % (Manual) Nucleated RBC % Seg Neutrophils # Seg Neutrophils # Man Lymphocytes # (Manual) Monocytes # (Manual) Eosinophils # (Manual) Basophils # (Manual) PT INR Fibrinogen dRVVT Confirm Interp Factor V Activity POC ABG pH POC ABG pCO2 POC ABG pO2 ABG pO2 ABG HCO3 ABG Base Excess ABG Hemoglobin Oxyhemoglobin Sodium Potassium Chloride Carbon Dioxide BUN Creatinine Glucose POC Glucose 134 H 109 H 135 H Lactic Acid Calcium Phosphorus Magnesium Direct Bilirubin AST ALT Alkaline Phosphatase Lactate Dehydrogenase Troponin T C-Reactive Protein Total Protein Albumin Prealbumin Triglycerides Cholesterol LDL Cholesterol Direct HDL Cholesterol Urine pH Urine WBC (Auto) Urine Creatinine Urine Total Protein Fluid Total Protein Vancomycin Trough Rheumatoid Factor Complement C4 Miscellaneous Test Crossmatch Allied health notes reviewed: RT (not tolerating weaning. Has been on PS 18/5, desaturations if PS is weaned)
--- NOTE | 2017-01-30 15:10 | Progress Note ---
Assessment and Plan Assessment and plan: 46 years old female with massive stroke, now in vegetative state -- Acute hypoxic respiratory failure, s/p tracheostomy vent dependent --Pleural effusion ; possible thoracentesis by IR to improve respiratory status -- Massive stroke with mass effect, Continue supportive care -- Multiple episodes of sepsis with septic shock during her hospitalization s/p aspiration pneumonia/peritonitis from gastric perforation/UTI/candidemia/ decubitus ulcer s/p sacral decubitus debridement, Right pleural effusion - scheduled for chest ultrasound for possible thoracentesis Currently on meropenem with stop date 02/04 -- Acute renal failure/ ATN, improved significantly, creatinine near normal limits -- Paroxysmal atrial fibrillation with RVR, failed cardioversion Rate control , not a candidate for anticoagulation -- Diabetes, Accu-Cheks and SSI -- Anemia, Multifactorial, status post multiple PRBC transfusions -- Thrombocytopenia/secondary to sepsis -- Electrolyte abnormalities, correct as needed -- Severe protein calorie malnutrition, TPN -- Encephalopathy, Toxic metabolic initially, underlying conditions treated -- full code, family has unrealistic expectations poor prognosis History Interval history: Patient Seen and examined in ICU this morning Remains unresponsive, status post tracheostomy on vent Vital signs reviewed Hospitalist Physical - Constitutional Vitals: Temp Pulse Resp BP Pulse Ox 97.4 F L 104 H 24 114/70 100 01/30/17 13:30 01/30/17 14:18 01/30/17 14:18 01/30/17 14:15 01/30/17 13:33 General appearance: Present: no acute distress, well-nourished, obese - EENT Eyes: Present: PERRL. Absent: scleral icterus - Neck Neck: Present: supple, other (tracheostomy) - Respiratory Respiratory effort: normal Respiratory: bilateral: diminished, negative: rales, rhonchi, wheezing - Cardiovascular Rhythm: regular Heart Sounds: Present: S1 & S2 - Extremities Extremities: no ischemia, No edema - Abdominal General gastrointestinal: soft, non-tender, non-distended, normal bowel sounds - Integumentary Integumentary: Present: clear, warm - Psychiatric Psychiatric: other (noncommunicative) - Neurologic Neurologic: other (unresponsive) Results - Labs CBC & Chem 7: 01/28/17 04:00 01/29/17 06:15 Labs: Laboratory Last Values WBC 14.4 K/mm3 (4.5-11.0) H 01/28/17 04:00 RBC 2.82 M/mm3 (3.65-5.03) L 01/28/17 04:00 Hgb 7.4 gm/dl (10.1-14.3) L 01/28/17 04:00 Hct 23.5 % (30.3-42.9) L 01/28/17 04:00 MCV 83 fl (79-97) 01/28/17 04:00 MCH 26 pg (28-32) L 01/28/17 04:00 MCHC 31 % (30-34) 01/28/17 04:00 RDW 17.6 % (13.2-15.2) H 01/28/17 04:00 Plt Count 306 K/mm3 (140-440) 01/28/17 04:00 Lymph % (Auto) 10.2 % (13.4-35.0) L 01/28/17 04:00 [place] % (Auto) 11.0 % (0.0-7.3) H 01/28/17 04:00 Eos % (Auto) 0.4 % (0.0-4.3) 01/28/17 04:00 Baso % (Auto) 0.4 % (0.0-1.8) 01/28/17 04:00 Lymph # 1.5 K/mm3 (1.2-5.4) 01/28/17 04:00 [place] # 1.6 K/mm3 (0.0-0.8) H 01/28/17 04:00 Eos # 0.1 K/mm3 (0.0-0.4) 01/28/17 04:00 Baso # 0.1 K/mm3 (0.0-0.1) 01/28/17 04:00 Add Manual Diff Complete 12/19/16 05:02 Total Counted 100 12/19/16 05:02 Seg Neutrophils % 78.0 % (40.0-70.0) H 01/28/17 04:00 Seg Neuts % (Manual) 64.0 % (40.0-70.0) 12/19/16 05:02 Band Neutrophils % 15.0 % 12/19/16 05:02 Lymphocytes % (Manual) 13.0 % (13.4-35.0) L 12/19/16 05:02 Reactive Lymphs % (Man) 0 % 12/19/16 05:02 Monocytes % (Manual) 7.0 % (0.0-7.3) 12/19/16 05:02 Eosinophils % (Manual) 0 % (0.0-4.3) 12/19/16 05:02 Basophils % (Manual) 1.0 % (0.0-1.8) 12/19/16 05:02 Metamyelocytes % 0 % 12/19/16 05:02 Myelocytes % 0 % 12/19/16 05:02 Promyelocytes % 0 % 12/19/16 05:02 Blast Cells % 0 % 12/19/16 05:02 Nucleated RBC % 1.0 % (0.0-0.9) H 12/19/16 05:02 Seg Neutrophils # 11.3 K/mm3 (1.8-7.7) H 01/28/17 04:00 Seg Neutrophils # Man 12.9 K/mm3 (1.8-7.7) H 12/19/16 05:02 Band Neutrophils # 3.0 K/mm3 12/19/16 05:02 Lymphocytes # (Manual) 2.6 K/mm3 (1.2-5.4) 12/19/16 05:02 Abs React Lymphs (Man) 0.0 K/mm3 12/19/16 05:02 Monocytes # (Manual) 1.4 K/mm3 (0.0-0.8) H 12/19/16 05:02 Eosinophils # (Manual) 0.0 K/mm3 (0.0-0.4) 12/19/16 05:02 Basophils # (Manual) 0.2 K/mm3 (0.0-0.1) H 12/19/16 05:02 Metamyelocytes # 0.0 K/mm3 12/19/16 05:02 Myelocytes # 0.0 K/mm3 12/19/16 05:02 Promyelocytes # 0.0 K/mm3 12/19/16 05:02 Blast Cells # 0.0 K/mm3 12/19/16 05:02 Pathologist Review 09/13/16 04:00 WBC Morphology Not Reportable 12/19/16 05:02 Hypersegmented Neuts Not Reportable 12/19/16 05:02 Hyposegmented Neuts Not Reportable 12/19/16 05:02 Hypogranular Neuts Not Reportable 12/19/16 05:02 Smudge Cells Not Reportable 12/19/16 05:02 Toxic Granulation Not Reportable 12/19/16 05:02 Toxic Vacuolation Not Reportable 12/19/16 05:02 Dohle Bodies Not Reportable 12/19/16 05:02 Pelger-Huet Anomaly Not Reportable 12/19/16 05:02 Jasmina Rods Not Reportable 12/19/16 05:02 Platelet Estimate Consistent w auto 12/19/16 05:02 Clumped Platelets Not Reportable 12/19/16 05:02 Plt Clumps, EDTA Not Reportable 12/19/16 05:02 Large Platelets Not Reportable 12/19/16 05:02 Giant Platelets Not Reportable 12/19/16 05:02 Platelet Satelliting Not Reportable 12/19/16 05:02 Plt Morphology Comment Not Reportable 12/19/16 05:02 RBC Morphology Not Reportable 12/19/16 05:02 Dimorphic RBCs Not Reportable 12/19/16 05:02 Polychromasia Not Reportable 12/19/16 05:02 Hypochromasia Not Reportable 12/19/16 05:02 Poikilocytosis Not Reportable 12/19/16 05:02 Anisocytosis Not Reportable 12/19/16 05:02 Microcytosis Not Reportable 12/19/16 05:02 Macrocytosis Not Reportable 12/19/16 05:02 Spherocytes Not Reportable 12/19/16 05:02 Pappenheimer Bodies Not Reportable 12/19/16 05:02 Sickle Cells Not Reportable 12/19/16 05:02 Target Cells Few 12/19/16 05:02 Tear Drop Cells Not Reportable 12/19/16 05:02 Ovalocytes Not Reportable 12/19/16 05:02 Stomatocytes Rare 12/03/16 04:00 Helmet Cells Not Reportable 12/19/16 05:02 [place] Bodies Not Reportable 12/19/16 05:02 [place] Rings Not Reportable 12/19/16 05:02 [place] Cells Not Reportable 12/19/16 05:02 Bite Cells Not Reportable 12/19/16 05:02 Crenated Cell Not Reportable 12/19/16 05:02 Elliptocytes Not Reportable 12/19/16 05:02 Acanthocytes (Spur) Not Reportable 12/19/16 05:02 Rouleaux Not Reportable 12/19/16 05:02 Hemoglobin C Crystals Not Reportable 12/19/16 05:02 Schistocytes Not Reportable 12/19/16 05:02 Malaria parasites Not Reportable 12/19/16 05:02 ESR > 140.0 mm/Hr (0-20) 09/08/16 11:48 Jun Bodies Not Reportable 12/19/16 05:02 Hem Pathologist Commnt No 12/19/16 05:02 PT 15.4 Sec. (12.2-14.9) H 01/13/17 15:50 INR 1.16 (0.87-1.13) H 01/13/17 15:50 APTT 33.0 Sec. (24.2-36.6) 10/09/16 03:45 Thrombin Time 16.8 Sec. (15.1-19.6) 09/03/16 00:10 Fibrinogen 750 mg/dl (211-480) H 09/08/16 11:48 Lupus Anticoagulant see below 09/12/16 09:59 LA PTT Baseline See scanned report 09/12/16 09:59 dRVVT Confirm Interp Positive (Negative) H 09/12/16 09:59 dRVVT Screen 50:50 See scanned report 09/12/16 09:59 dRVVT Mix Interpret See scanned report 09/12/16 09:59 Protein C Antigen 122 % (70-140) 09/08/16 15:35 Free Protein S 97 % normal (50-147) 09/08/16 15:35 Total Protein S 109 % (70-140) 09/08/16 15:35 Antithrombin III Ag 100 % (80-120) 09/08/16 15:35 Heparin Anti-Xa, Unfract Negative (Negative) 09/29/16 13:35 Factor V Activity 182 % (65-150) H 09/08/16 15:35 POC ABG pH 7.436 (7.35-7.45) 01/20/17 12:17 ABG pH 7.450 pH Units (7.350-7.450) 12/05/16 Unknown POC ABG pCO2 35.3 (35-45) 01/20/17 12:17 ABG pCO2 29.6 mm Hg 12/05/16 Unknown POC ABG pO2 70 (80-105) L 01/20/17 12:17 ABG pO2 75.2 mm Hg (80.0-90.0) L 12/05/16 Unknown POC ABG HCO3 23.8 01/20/17 12: ABG HCO3 20.1 mmol/L (20.0-26.0) 12/05/16 Unknown POC ABG Total CO2 25 01/20/17 12:17 POC ABG O2 Sat 94 01/20/17 12: ABG O2 Saturation 96.8 % (95.0-99.0) 12/05/16 Unknown ABG O2 Content 9.9 (0.0-44) 12/05/16 Unknown POC ABG Base Excess 0 01/20/17 12: ABG Base Excess -3.4 mmol/L (-2.0-3.0) L 12/05/16 Unknown ABG Hemoglobin 7.4 gm/dl (12.0-16.0) L 12/05/16 Unknown ABG Carboxyhemoglobin 1.8 % (0.0-5.0) 12/05/16 Unknown ABG Methemoglobin 0.6 % (0.0-1.5) 12/05/16 Unknown Oxyhemoglobin 94.5 % (95.0-99.0) L 12/05/16 Unknown FiO2 30 % 01/20/17 12:17 Sodium 138 mmol/L (137-145) 01/29/17 06:15 Potassium 4.5 mmol/L (3.6-5.0) 01/29/17 06:15 Chloride 99.4 mmol/L (98-107) 01/29/17 06:15 Carbon Dioxide 25 mmol/L (22-30) 01/29/17 06:15 Anion Gap 18 mmol/L 01/29/17 06:15 BUN 85 mg/dL (7-17) H 01/29/17 06:15 Creatinine 1.7 mg/dL (0.7-1.2) H 01/29/17 06:15 Estimated GFR 39 ml/min 01/29/17 06:15 BUN/Creatinine Ratio 50 % 01/29/17 06:15 Glucose 105 mg/dL (65-100) H 01/29/17 06:15 POC Glucose 135 (70-105) H 01/30/17 11:26 Osmolality 351 Mosm/kg 09/16/16 11:47 Lactic Acid 2.30 mmol/L (0.7-2.0) H* 01/09/17 08:22 Calcium 9.1 mg/dL (8.4-10.2) 01/29/17 06:15 Phosphorus 4.20 mg/dL (2.5-4.5) D 01/29/17 06:15 Magnesium 2.40 mg/dL (1.7-2.3) H 01/29/17 06:15 Total Bilirubin 0.50 mg/dL (0.1-1.2) 01/28/17 04:00 Direct Bilirubin 0.2 mg/dL (0-0.2) 01/28/17 04:00 Indirect Bilirubin 0.3 mg/dL 01/28/17 04:00 AST 14 units/L (5-40) 01/28/17 04:00 ALT 9 units/L (7-56) 01/28/17 04:00 Alkaline Phosphatase 113 units/L (35-129) 01/28/17 04:00 Ammonia 27.0 umol/L (25-60) 09/07/16 08:37 Lactate Dehydrogenase 170 units/L (91-180) 01/13/17 15:50 Total Creatine Kinase 121 units/L (30-135) 09/29/16 20:12 CK-MB (CK-2) < 1.0 ng/mL (0.0-4.0) 09/29/16 20:12 CK-MB (CK-2) Rel Index 0.8 (0-4) 09/29/16 20:12 Troponin T 0.204 ng/mL (0.00-0.029) H* 09/29/16 20:12 C-Reactive Protein 24.70 mg/dL (0.00-1.30) H 01/09/17 13:30 Total Protein 6.3 g/dL (6.3-8.2) 01/28/17 04:00 Albumin 1.4 g/dL (3.9-5) L 01/28/17 04:00 Albumin/Globulin Ratio 0.3 % 01/28/17 04:00 Prealbumin 0.110 g/L (0.200-0.400) L 12/29/16 05:15 Triglycerides 137 mg/dL (2-149) 09/29/16 20:12 Cholesterol 31 mg/dL (50-199) L 09/29/16 20:12 LDL Cholesterol Direct 4 mg/dL (50-130) L 09/29/16 20:12 HDL Cholesterol 3 mg/dL (40-59) L 09/29/16 20:12 Cholesterol/HDL Ratio 10.33 % 09/29/16 20:12 Angiotensin Convert Enz See scanned report 09/08/16 11:48 Renin 0.99 ng/mL/h (0.25-5.82) 10/07/16 10:56 Aldosterone <1 ng/dL () 10/07/16 10:56 Aldosterone/Renin Dir see below 10/07/16 10:56 Serotonin Release Assay See scanned report 09/29/16 13:35 TSH 1.010 mlU/mL (0.270-4.200) 09/07/16 08:37 HCG, Qual Negative (Negative) 09/03/16 00:10 Urine Color Yellow (Yellow) 11/05/16 13:09 Urine Turbidity Clear (Clear) 11/05/16 13:09 Urine pH 9.0 (5.0-7.0) H 11/05/16 13:09 Ur Specific Pound 1.011 (1.003-1.030) 11/05/16 13:09 Urine Protein 100 mg/dl mg/dL (Negative) 11/05/16 13:09 Urine Glucose (UA) Neg mg/dL (Negative) 11/05/16 13:09 Urine Ketones Neg mg/dL (Negative) 11/05/16 13:09 Urine Blood Neg (Negative) 11/05/16 13:09 Urine Nitrite Neg (Negative) 11/05/16 13:09 Urine Bilirubin Neg (Negative) 11/05/16 13:09 Urine Urobilinogen < 2.0 mg/dL (<2.0) 11/05/16 13:09 Ur Leukocyte Esterase Neg (Negative) 11/05/16 13:09 Urine WBC (Auto) 4.0 /HPF (0.0-6.0) 11/05/16 13:09 Urine RBC (Auto) 1.0 /HPF (0.0-6.0) 11/05/16 13:09 U Epithel Cells (Auto) 1.0 /HPF (0-13.0) 10/07/16 18:30 Urine Bacteria (Auto) 4+ /HPF (Negative) 11/05/16 13:09 Urine WBC Clumps 2+ /HPF 09/07/16 02:47 Hyaline Casts 4 /LPF 09/07/16 02:47 Urine Mucus Few /HPF 10/07/16 18:30 Urine Yeast (Budding) 3+ /HPF 10/07/16 18:30 Urine Eosinophils None seen (None Seen) 09/07/16 16:00 Urine Total Volume 950 11/12/16 10:18 Urine Creatinine 19.7 mg/dL (0.1-20.0) 11/12/16 10:18 Height (in) 65.0 inches 11/12/16 10:18 Weight (lb) 181.0 lbs 11/12/16 10:18 Creatinine Clearance 5 11/12/16 10:18 Urine Sodium 36 mEq/L 09/16/16 19:19 Urine Total Protein 16 mg/dL (5-11.8) H 09/16/16 19:19 Fluid Type Pleural 01/13/17 12:10 Fluid Color Yellow 01/13/17 12:10 Fluid Appearance Hazy 01/13/17 12:10 Fluid WBC 182 /mm3 01/13/17 12:10 Fluid RBC 41 /mm3 01/13/17 12:10 Fluid Seg Neutrophils 85.0 % 01/13/17 12:10 Fluid Lymphocytes 8.0 % 01/13/17 12:10 Fluid Reactive Lymphs 0 % 01/13/17 12:10 Fluid Monocytes 6.0 % 01/13/17 12:10 Fluid Eosinophils 1.0 % 01/13/17 12:10 Fluid Basophils 0 % 01/13/17 12:10 Fluid Total Protein 3.0 (15.0-45.0) L 01/13/17 12:10 Fluid LDH 1322 01/13/17 12:10 Fluid Comment Diff performed 01/13/17 12:10 Vancomycin Trough 2.3 ug/mL (5.0-20.0) L 09/21/16 13:00 Random Vancomycin 16.5 ug/mL (0-40.0) 11/28/16 09:45 Urine Opiates Screen Presumptive negative 09/03/16 15:11 Urine Methadone Screen Presumptive positive 09/03/16 15:11 Ur Barbiturates Screen Presumptive positive 09/03/16 15:11 Ur Phencyclidine Scrn Presumptive negative 09/03/16 15:11 Ur Amphetamines Screen Presumptive negative 09/03/16 15:11 U Benzodiazepines Scrn Presumptive negative 09/03/16 15:11 Urine Cocaine Screen Presumptive negative 09/03/16 15:11 U Marijuana (THC) Screen Presumptive positive 09/03/16 15:11 Drugs of Abuse Note Disclamer 09/03/16 15:11 Rheumatoid Factor 24 IU/ml (0-13) H 09/08/16 11:48 SAHIL Screen Negative (Negative) 09/07/16 09:20 Proteinase 3 (PR3) Ab <1.0 AI (<1.0) 09/07/16 09:20 Myeloperoxidase Ab <1.0 AI (<1.0) 09/07/16 09:20 Sjogren's Antibody <1.0 AI (<1.0) 09/08/16 15:35 Scl-70 Scleroderma Ab <1.0 AI (<1.0) 09/08/16 15:35 Centromere B Antibody <1.0 AI (<1.0) 09/08/16 12:02 Heparin-induced Plt Ab Negative (Negative) 09/29/16 13:35 UF Heparin High Dose 11 % Release 09/29/16 13:35 SUHDIR UFH Low Dose 0.1 6 % Release 09/29/16 13:35 SUDHIR UFH Low Dose 0.5 8 % Release 09/29/16 13:35 Cardiolipid IgG Ab <14 GPL (<=14) 09/12/16 09:59 Cardiolipid IgA Ab <11 APL (<=11) 09/12/16 09:59 Cardiolipid IgM Ab <12 MPL (<=12) 09/12/16 09:59 Complement C3 148 mg/dL (90-180) 09/07/16 09:20 Complement C4 58 mg/dL (16-47) H 09/07/16 09:20 RPR Nonreactive (Nonreactive) 09/08/16 11:48 Hepatitis A IgM Ab Non-reactive (NonReactive) 09/24/16 14:40 Hep Bs Antigen Non-reactive (Negative) 09/24/16 14:40 Hep B Core IgM Ab Non-reactive (NonReactive) 09/24/16 14:40 Hepatitis C Antibody Non-reactive (NonReactive) 09/24/16 14:40 HIV 1&2 Antibody Rapid Non react (Non React) 09/08/16 11:48 HIV P24 Antigen Non react (Non React) 09/08/16 11:48 Miscellaneous Test Flexitest 1 H 01/09/17 18:45 Blood Type A POSITIVE 01/25/17 11:15 Antibody Screen Negative 01/25/17 11:15 DELROIS Antibody Screen Negative 11/24/16 11:20 Crossmatch See Detail 01/25/17 11:15
--- NOTE | 2017-01-30 15:33 | Progress Note ---
Assessment and Plan Talked with Dr. Lara and he says he spoke with interventional radiologist and they are going to evaluate her for a percutaneous G-J tube placed by IR. Dr. Lara will call [facility] [phone] if IR is unable to place a G -J tube and surgical intervention is needed. Subjective Date of service: 01/30/17 Patient Reports: Positive: no new complaints Objective Vital Signs - 12hr 01/30/17 01/30/17 01/30/17 03:45 04:00 04:15 Temperature 98.8 F Pulse Rate 86 84 84 Pulse Rate [ Anterior Bilateral Throughout] Respiratory 17 18 16 Rate Respiratory Rate [Anterior Bilateral Throughout] Blood Pressure 123/78 129/78 128/78 O2 Sat by Pulse 99 100 100 Oximetry O2 Sat by Pulse Oximetry [ Anterior Bilateral Throughout] 01/30/17 01/30/17 01/30/17 04:26 04:30 04:45 Temperature Pulse Rate 84 85 84 Pulse Rate [ Anterior Bilateral Throughout] Respiratory 15 17 Rate Respiratory Rate [Anterior Bilateral Throughout] Blood Pressure 128/78 137/85 127/77 O2 Sat by Pulse 100 100 100 Oximetry O2 Sat by Pulse Oximetry [ Anterior Bilateral Throughout] 01/30/17 01/30/17 01/30/17 05:00 05:15 05:30 Temperature Pulse Rate 85 85 88 Pulse Rate [ Anterior Bilateral Throughout] Respiratory 13 16 12 Rate Respiratory Rate [Anterior Bilateral Throughout] Blood Pressure 134/81 126/78 127/85 O2 Sat by Pulse 100 100 100 Oximetry O2 Sat by Pulse Oximetry [ Anterior Bilateral Throughout] 01/30/17 01/30/17 01/30/17 05:45 05:57 05:58 Temperature Pulse Rate 86 85 86 Pulse Rate [ Anterior Bilateral Throughout] Respiratory 23 Rate Respiratory Rate [Anterior Bilateral Throughout] Blood Pressure 119/75 119/75 119/75 O2 Sat by Pulse 95 Oximetry O2 Sat by Pulse Oximetry [ Anterior Bilateral Throughout] 01/30/17 01/30/17 01/30/17 06:00 06:15 06:30 Temperature Pulse Rate 88 87 87 Pulse Rate [ Anterior Bilateral Throughout] Respiratory 17 17 16 Rate Respiratory Rate [Anterior Bilateral Throughout] Blood Pressure 137/87 134/81 131/80 O2 Sat by Pulse 100 100 100 Oximetry O2 Sat by Pulse Oximetry [ Anterior Bilateral Throughout] 01/30/17 01/30/17 01/30/17 06:45 07:00 07:15 Temperature Pulse Rate 86 86 84 Pulse Rate [ Anterior Bilateral Throughout] Respiratory 17 19 16 Rate Respiratory Rate [Anterior Bilateral Throughout] Blood Pressure 117/72 115/71 107/65 O2 Sat by Pulse 94 97 98 Oximetry O2 Sat by Pulse Oximetry [ Anterior Bilateral Throughout] 01/30/17 01/30/17 01/30/17 07:30 07:45 08:00 Temperature 97.5 F L Pulse Rate 85 87 86 Pulse Rate [ Anterior Bilateral Throughout] Respiratory 21 18 19 Rate Respiratory Rate [Anterior Bilateral Throughout] Blood Pressure 112/68 118/70 112/66 O2 Sat by Pulse 98 100 100 Oximetry O2 Sat by Pulse Oximetry [ Anterior Bilateral Throughout] 01/30/17 01/30/17 01/30/17 08:15 08:30 08:31 Temperature Pulse Rate 86 89 89 Pulse Rate [ Anterior Bilateral Throughout] Respiratory 18 18 19 Rate Respiratory Rate [Anterior Bilateral Throughout] Blood Pressure 107/62 115/74 115/74 O2 Sat by Pulse 99 100 100 Oximetry O2 Sat by Pulse Oximetry [ Anterior Bilateral Throughout] 01/30/17 01/30/17 01/30/17 08:35 08:45 08:51 Temperature Pulse Rate 89 Pulse Rate [ 87 94 H Anterior Bilateral Throughout] Respiratory 19 Rate Respiratory 19 21 Rate [Anterior Bilateral Throughout] Blood Pressure 110/59 O2 Sat by Pulse 99 Oximetry O2 Sat by Pulse Oximetry [ Anterior Bilateral Throughout] 01/30/17 01/30/17 01/30/17 09:00 09:15 09:30 Temperature Pulse Rate 96 H 92 H 91 H Pulse Rate [ Anterior Bilateral Throughout] Respiratory 24 19 21 Rate Respiratory Rate [Anterior Bilateral Throughout] Blood Pressure 123/66 105/60 112/65 O2 Sat by Pulse 100 100 99 Oximetry O2 Sat by Pulse Oximetry [ Anterior Bilateral Throughout] 01/30/17 01/30/17 01/30/17 09:45 10:00 10:15 Temperature Pulse Rate 91 H 91 H 90 Pulse Rate [ Anterior Bilateral Throughout] Respiratory 21 17 23 Rate Respiratory Rate [Anterior Bilateral Throughout] Blood Pressure 111/63 113/65 108/61 O2 Sat by Pulse 100 100 100 Oximetry O2 Sat by Pulse Oximetry [ Anterior Bilateral Throughout] 01/30/17 01/30/17 01/30/17 10:21 10:30 10:45 Temperature Pulse Rate 92 H 97 H 98 H Pulse Rate [ Anterior Bilateral Throughout] Respiratory 12 19 Rate Respiratory Rate [Anterior Bilateral Throughout] Blood Pressure 108/61 119/84 107/69 O2 Sat by Pulse 100 100 Oximetry O2 Sat by Pulse Oximetry [ Anterior Bilateral Throughout] 01/30/17 01/30/17 01/30/17 11:00 11:15 11:30 Temperature Pulse Rate 94 H 91 H 90 Pulse Rate [ Anterior Bilateral Throughout] Respiratory 23 22 16 Rate Respiratory Rate [Anterior Bilateral Throughout] Blood Pressure 114/68 111/66 110/66 O2 Sat by Pulse 100 100 100 Oximetry O2 Sat by Pulse Oximetry [ Anterior Bilateral Throughout] 01/30/17 01/30/17 01/30/17 11:45 12:00 12:15 Temperature 97.4 F L Pulse Rate 91 H 90 91 H Pulse Rate [ Anterior Bilateral Throughout] Respiratory 23 20 23 Rate Respiratory Rate [Anterior Bilateral Throughout] Blood Pressure 114/71 119/75 119/75 O2 Sat by Pulse 100 100 100 Oximetry O2 Sat by Pulse Oximetry [ Anterior Bilateral Throughout] 01/30/17 01/30/17 01/30/17 12:30 12:40 13:16 Temperature Pulse Rate 94 H 93 H 99 H Pulse Rate [ Anterior Bilateral Throughout] Respiratory 28 H 31 H Rate Respiratory Rate [Anterior Bilateral Throughout] Blood Pressure 125/80 125/80 125/79 O2 Sat by Pulse 100 100 Oximetry O2 Sat by Pulse Oximetry [ Anterior Bilateral Throughout] 01/30/17 01/30/17 01/30/17 13:30 13:33 13:35 Temperature 97.4 F L Pulse Rate 92 H 95 H 96 H Pulse Rate [ Anterior Bilateral Throughout] Respiratory 16 Rate Respiratory Rate [Anterior Bilateral Throughout] Blood Pressure 113/64 113/64 121/73 O2 Sat by Pulse 100 Oximetry O2 Sat by Pulse 100 Oximetry [ Anterior Bilateral Throughout] 01/30/17 01/30/17 01/30/17 13:38 13:45 14:00 Temperature Pulse Rate 98 H 97 H Pulse Rate [ 98 H Anterior Bilateral Throughout] Respiratory Rate Respiratory 24 Rate [Anterior Bilateral Throughout] Blood Pressure 111/72 114/71 O2 Sat by Pulse Oximetry O2 Sat by Pulse Oximetry [ Anterior Bilateral Throughout] 01/30/17 01/30/17 01/30/17 14:15 14:18 14:30 Temperature Pulse Rate 99 H 99 H Pulse Rate [ 104 H Anterior Bilateral Throughout] Respiratory Rate Respiratory 24 Rate [Anterior Bilateral Throughout] Blood Pressure 114/70 104/67 O2 Sat by Pulse Oximetry O2 Sat by Pulse Oximetry [ Anterior Bilateral Throughout] 01/30/17 01/30/17 01/30/17 14:45 15:00 15:15 Temperature Pulse Rate 102 H 103 H 104 H Pulse Rate [ Anterior Bilateral Throughout] Respiratory Rate Respiratory Rate [Anterior Bilateral Throughout] Blood Pressure 107/70 104/72 112/80 O2 Sat by Pulse Oximetry O2 Sat by Pulse Oximetry [ Anterior Bilateral Throughout] 01/30/17 15:30 Temperature Pulse Rate 105 H Pulse Rate [ Anterior Bilateral Throughout] Respiratory Rate Respiratory Rate [Anterior Bilateral Throughout] Blood Pressure 120/90 O2 Sat by Pulse Oximetry O2 Sat by Pulse Oximetry [ Anterior Bilateral Throughout] - Abdomen soft, not tender, bowel sounds normal, other (PEG site healed; Ostomy bags on two puntate wounds in the right lat abd) - Labs 01/28/17 04:00 01/29/17 06:15
[2017-01-30] MEDS: HEPARIN IV PRN (15:42)
[2017-01-30] MEDS ORDERED: TPN ADULT IV SCH (20:00)
[2017-01-30] MEDS: NACL 0.9% IV SCH (21:12)
[2017-01-30] MEDS: TAZICEF IV SCH (21:12)
[2017-01-31] MEDS: DUONEB *Not for PRN Use IH SCH ×5 (02:23→19:17)
[2017-01-31 05:24] LABS: Calcium 9.5 mg/dL (8.4-10.2)
[2017-01-31] MEDS: REGLAN IV SCH ×3 (05:29→21:15)
[2017-01-31] MEDS: LOPRESSOR PO SCH ×4 (05:30→17:57)
[2017-01-31] MEDS: APRESOLINE PO SCH ×3 (05:33→21:14)
[2017-01-31] MEDS: HumuLIN R SUB-Q SCH ×4 (05:37→18:00)
[2017-01-31] MEDS: PROTONIX FEEDTUBE SCH (09:25)
[2017-01-31] MEDS: NORVASC PO SCH (09:26)
[2017-01-31] MEDS: ROBINUL PO SCH ×2 (09:26→21:13)
[2017-01-31] MEDS: HEPARIN SUB-Q SCH ×2 (09:26→21:15)
--- NOTE | 2017-01-31 11:10 | Progress Note ---
Assessment and Plan Assessment: 1) Recurrent SIRS: unclear source, fever better. 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 gastric perf (PEG placed on 09/20) +/- TPN +/- central lines -TTE 10/07 no vegetations -PICC exchanged on 10/03 -fully treated with micafungin for 14 days last day 10/13 4) History CA-UTI s/p gutierrez exchanged 5) Diarrhea - ? etiology ? antibiotic-induced, not better. 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 from GI bleed 13) Recent abdominal wall abscess at surgical site-treated 14 ) Recent Enterococcal bacteremia from PICC line infection. 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 -worsening -S/P debridement at bedside - new wound cx 01/24 +Proteus and MDR Pseudomonas (resistant to meropenem and cefepime/sensitive to ceftazidime) 16) Presumed VAP: sputum + MDR Pseudomonas / Proteus Plan: -continue ceftazidime IV total 3 weeks until 02/20/17-was on meropenem -repeat CRP -continue wound care Thank you Dr Brown or your consultation, will follow up with you. Pauline Carias MD Infectious Diseases Specialist [facility] ([facility] M [phone] O [phone] Subjective Date of service: 01/31/17 Principal diagnosis: Acute resp failure on MVS; S/P Acute CVA; Acute Encephalopathy; JUANITA Interval history: Interval history: Alert, no fever, remains on the vent CPAP via trach + TPN Microbiology: Blood cultures: 09/13 neg 8/ Silvia albicans 09/25 Silvia 09/29 neg 10/07 neg 11/05 neg 11/07 ngtd 10 E faecalis 1 of 4 bottles 11/25 neg 12/27 neg 01/09 ngtd Urine cultures: 09/10 neg 09/13 neg 8 10-100K mixed species 10/07 neg 11/05 VRE 11/07 mixed bacteria Respiratory cultures: 09/07 neg 09/13 neg 09/23 neg 11/07 MDR Pseudomonas 11/21 tracheal + VRE 01/09 Pseudomonas x 3 and Proteues Pleural effusion: ngtd Wound cultures: 10/17 abd wall wound purulence + Pseudomonas MDR 01/24 GNRs Stool cultures: cath tip 11/07 + DIRECTOR INFORMATICS Current Antimicrobials: ceftaz 01/30 Previous Antimicrobials: Zosyn 10/07 Vancomycin PO 10/01 Metronidazole 09/25 Micafungin 09/27-10/13 Meropenem 10/10 Vanco 10/17 zosyn 10/21 Cefepime 11/10 vancomyin 11/07 fluconazole 10/19 cefepime 10/29levaquin 11/05 vanco 11/23 meropenem 01/08 Objective - Exam Narrative Exam: General appearance: somnolent non communicative, on the vent via trach in mild resp distress, no following commands Eyes: anicteric sclera, moist conjunctivae; PERRLA HENT: Atraumatic; oropharynx limited; Normal external ears. +NGT with greenish secretion Neck: +trach in place; supple, no thyromegaly or lymphadenopathy Lungs: brit coarse BS CV: rrr Abdomen: Soft, non-tender, +old PEG site no drainage. +iliostomy. Right sided Surgical site x 2 with ostomy bag draining small amount yellowish secretion Extremities: +peripheral edema Skin: sacral area wounds - per wound care STAGE 4 PRESSURE INJURY TO SACRAL MEASURES 7.5X6X2.5, WITH UNDERMINING FROM @9-1 OCLOCK-2.8CM-ULCER CLEANED WITH WOUND APPLICATION PERFORMANCE ENGINEER-ULCER NEW - Sacrum wound measuring 9x11cm. Necrotic tissue noted on the wound edges and in the wound bed Psych: somnolent . Neuro: alert non verbal on the vent. Lines: PICC / gutierrez - Constitutional Vitals: Vital Signs Temp Pulse Resp BP Pulse Ox 97.7 F 90 35 H 109/74 93 01/31/17 07:38 01/31/17 10:00 01/31/17 10:00 01/31/17 10:00 01/31/17 10:00 Temperature -Last 24 Hours Temperature 97.7 F Temperature 98.3 F Temperature 98.7 F Temperature 98.9 F Temperature 98.2 F Temperature 98.2 F Temperature 97.4 F Temperature 97.4 F - Labs CBC & Chem 7: 01/28/17 04:00 01/31/17 04:00 Labs: Abnormal lab results 01/29/17 01/30/17 01/30/17 Range/Units 18:24 11:26 17:43 BUN (7-17) mg/dL Creatinine (0.7-1.2) mg/dL Glucose (65-100) mg/dL POC Glucose 109 H 135 H 143 H (70-105) 01/30/17 01/31/17 Range/Units 23:39 04:00 BUN 78 H (7-17) mg/dL Creatinine 1.5 H (0.7-1.2) mg/dL Glucose 108 H (65-100) mg/dL POC Glucose 122 H (70-105)
--- NOTE | 2017-01-31 11:30 | Progress Note ---
Assessment and Plan Assessment and plan: 46 years old female with massive stroke, now in vegetative state -- Massive stroke with mass effect, Continue supportive care -- Multiple episodes of sepsis with septic shock during her hospitalization s/p aspiration pneumonia/peritonitis from gastric perforation/UTI/candidemia/ decubitus ulcer s/p sacral decubitus debridement, Right pleural effusion - scheduled for chest ultrasound for possible thoracentesis Currently on meropenem with stop date 02/04 -- Acute hypoxic respiratory failure, s/p tracheostomy vent dependent --Pleural effusion ; possible thoracentesis by IR to improve respiratory status -- Acute renal failure/ ATN, improved significantly, creatinine near normal limits -- Paroxysmal atrial fibrillation with RVR, failed cardioversion Rate control , not a candidate for anticoagulation -- Diabetes, Accu-Cheks and SSI -- Anemia, Multifactorial, status post multiple PRBC transfusions -- Thrombocytopenia/secondary to sepsis -- Electrolyte abnormalities, correct as needed -- Severe protein calorie malnutrition, TPN -- Encephalopathy, Toxic metabolic initially, underlying conditions treated -- full code, poor prognosis Family aware of patient's condition and poor prognosis History Interval history: Patient seen and examined in ICU today Clinically no change, no new events reported by the nursing staff Awaiting placement Status post tracheostomy on vent Hospitalist Physical - Constitutional Vitals: Temp Pulse Resp BP Pulse Ox 97.7 F 90 35 H 109/74 93 01/31/17 07:38 01/31/17 10:00 01/31/17 10:00 01/31/17 10:00 01/31/17 10:00 General appearance: Present: no acute distress, well-nourished, obese - EENT Eyes: Present: PERRL, EOM intact - Neck Neck: Present: supple, normal ROM - Respiratory Respiratory effort: normal Respiratory: bilateral: diminished, rhonchi, negative: rales, wheezing - Cardiovascular Rhythm: regular Heart Sounds: Present: S1 & S2 - Extremities Extremities: no ischemia, No edema - Abdominal General gastrointestinal: soft, non-tender, non-distended, normal bowel sounds - Integumentary Integumentary: Present: clear, warm - Psychiatric Psychiatric: appropriate mood/affect, cooperative - Neurologic Neurologic: CNII-XII intact, moves all extremities Results - Labs CBC & Chem 7: 01/28/17 04:00 01/31/17 04:00 Labs: Laboratory Last Values WBC 14.4 K/mm3 (4.5-11.0) H 01/28/17 04:00 RBC 2.82 M/mm3 (3.65-5.03) L 01/28/17 04:00 Hgb 7.4 gm/dl (10.1-14.3) L 01/28/17 04:00 Hct 23.5 % (30.3-42.9) L 01/28/17 04:00 MCV 83 fl (79-97) 01/28/17 04:00 MCH 26 pg (28-32) L 01/28/17 04:00 MCHC 31 % (30-34) 01/28/17 04:00 RDW 17.6 % (13.2-15.2) H 01/28/17 04:00 Plt Count 306 K/mm3 (140-440) 01/28/17 04:00 Lymph % (Auto) 10.2 % (13.4-35.0) L 01/28/17 04:00 [place] % (Auto) 11.0 % (0.0-7.3) H 01/28/17 04:00 Eos % (Auto) 0.4 % (0.0-4.3) 01/28/17 04:00 Baso % (Auto) 0.4 % (0.0-1.8) 01/28/17 04:00 Lymph # 1.5 K/mm3 (1.2-5.4) 01/28/17 04:00 [place] # 1.6 K/mm3 (0.0-0.8) H 01/28/17 04:00 Eos # 0.1 K/mm3 (0.0-0.4) 01/28/17 04:00 Baso # 0.1 K/mm3 (0.0-0.1) 01/28/17 04:00 Add Manual Diff Complete 12/19/16 05:02 Total Counted 100 12/19/16 05:02 Seg Neutrophils % 78.0 % (40.0-70.0) H 01/28/17 04:00 Seg Neuts % (Manual) 64.0 % (40.0-70.0) 12/19/16 05:02 Band Neutrophils % 15.0 % 12/19/16 05:02 Lymphocytes % (Manual) 13.0 % (13.4-35.0) L 12/19/16 05:02 Reactive Lymphs % (Man) 0 % 12/19/16 05:02 Monocytes % (Manual) 7.0 % (0.0-7.3) 12/19/16 05:02 Eosinophils % (Manual) 0 % (0.0-4.3) 12/19/16 05:02 Basophils % (Manual) 1.0 % (0.0-1.8) 12/19/16 05:02 Metamyelocytes % 0 % 12/19/16 05:02 Myelocytes % 0 % 12/19/16 05:02 Promyelocytes % 0 % 12/19/16 05:02 Blast Cells % 0 % 12/19/16 05:02 Nucleated RBC % 1.0 % (0.0-0.9) H 12/19/16 05:02 Seg Neutrophils # 11.3 K/mm3 (1.8-7.7) H 01/28/17 04:00 Seg Neutrophils # Man 12.9 K/mm3 (1.8-7.7) H 12/19/16 05:02 Band Neutrophils # 3.0 K/mm3 12/19/16 05:02 Lymphocytes # (Manual) 2.6 K/mm3 (1.2-5.4) 12/19/16 05:02 Abs React Lymphs (Man) 0.0 K/mm3 12/19/16 05:02 Monocytes # (Manual) 1.4 K/mm3 (0.0-0.8) H 12/19/16 05:02 Eosinophils # (Manual) 0.0 K/mm3 (0.0-0.4) 12/19/16 05:02 Basophils # (Manual) 0.2 K/mm3 (0.0-0.1) H 12/19/16 05:02 Metamyelocytes # 0.0 K/mm3 12/19/16 05:02 Myelocytes # 0.0 K/mm3 12/19/16 05:02 Promyelocytes # 0.0 K/mm3 12/19/16 05:02 Blast Cells # 0.0 K/mm3 12/19/16 05:02 Pathologist Review 09/13/16 04:00 WBC Morphology Not Reportable 12/19/16 05:02 Hypersegmented Neuts Not Reportable 12/19/16 05:02 Hyposegmented Neuts Not Reportable 12/19/16 05:02 Hypogranular Neuts Not Reportable 12/19/16 05:02 Smudge Cells Not Reportable 12/19/16 05:02 Toxic Granulation Not Reportable 12/19/16 05:02 Toxic Vacuolation Not Reportable 12/19/16 05:02 Dohle Bodies Not Reportable 12/19/16 05:02 Pelger-Huet Anomaly Not Reportable 12/19/16 05:02 Jasmina Rods Not Reportable 12/19/16 05:02 Platelet Estimate Consistent w auto 12/19/16 05:02 Clumped Platelets Not Reportable 12/19/16 05:02 Plt Clumps, EDTA Not Reportable 12/19/16 05:02 Large Platelets Not Reportable 12/19/16 05:02 Giant Platelets Not Reportable 12/19/16 05:02 Platelet Satelliting Not Reportable 12/19/16 05:02 Plt Morphology Comment Not Reportable 12/19/16 05:02 RBC Morphology Not Reportable 12/19/16 05:02 Dimorphic RBCs Not Reportable 12/19/16 05:02 Polychromasia Not Reportable 12/19/16 05:02 Hypochromasia Not Reportable 12/19/16 05:02 Poikilocytosis Not Reportable 12/19/16 05:02 Anisocytosis Not Reportable 12/19/16 05:02 Microcytosis Not Reportable 12/19/16 05:02 Macrocytosis Not Reportable 12/19/16 05:02 Spherocytes Not Reportable 12/19/16 05:02 Pappenheimer Bodies Not Reportable 12/19/16 05:02 Sickle Cells Not Reportable 12/19/16 05:02 Target Cells Few 12/19/16 05:02 Tear Drop Cells Not Reportable 12/19/16 05:02 Ovalocytes Not Reportable 12/19/16 05:02 Stomatocytes Rare 12/03/16 04:00 Helmet Cells Not Reportable 12/19/16 05:02 [place] Bodies Not Reportable 12/19/16 05:02 [place] Rings Not Reportable 12/19/16 05:02 Gregory Cells Not Reportable 12/19/16 05:02 Bite Cells Not Reportable 12/19/16 05:02 Crenated Cell Not Reportable 12/19/16 05:02 Elliptocytes Not Reportable 12/19/16 05:02 Acanthocytes (Spur) Not Reportable 12/19/16 05:02 Rouleaux Not Reportable 12/19/16 05:02 Hemoglobin C Crystals Not Reportable 12/19/16 05:02 Schistocytes Not Reportable 12/19/16 05:02 Malaria parasites Not Reportable 12/19/16 05:02 ESR > 140.0 mm/Hr (0-20) 09/08/16 11:48 Jun Bodies Not Reportable 12/19/16 05:02 Hem Pathologist Commnt No 12/19/16 05:02 PT 15.4 Sec. (12.2-14.9) H 01/13/17 15:50 INR 1.16 (0.87-1.13) H 01/13/17 15:50 APTT 33.0 Sec. (24.2-36.6) 10/09/16 03:45 Thrombin Time 16.8 Sec. (15.1-19.6) 09/03/16 00:10 Fibrinogen 750 mg/dl (211-480) H 09/08/16 11:48 Lupus Anticoagulant see below 09/12/16 09:59 LA PTT Baseline See scanned report 09/12/16 09:59 dRVVT Confirm Interp Positive (Negative) H 09/12/16 09:59 dRVVT Screen 50:50 See scanned report 09/12/16 09:59 dRVVT Mix Interpret See scanned report 09/12/16 09:59 Protein C Antigen 122 % (70-140) 09/08/16 15:35 Free Protein S 97 % normal (50-147) 09/08/16 15:35 Total Protein S 109 % (70-140) 09/08/16 15:35 Antithrombin III Ag 100 % (80-120) 09/08/16 15:35 Heparin Anti-Xa, Unfract Negative (Negative) 09/29/16 13:35 Factor V Activity 182 % (65-150) H 09/08/16 15:35 POC ABG pH 7.436 (7.35-7.45) 01/20/17 12:17 ABG pH 7.450 pH Units (7.350-7.450) 12/05/16 Unknown POC ABG pCO2 35.3 (35-45) 01/20/17 12: ABG pCO2 29.6 mm Hg 12/05/16 Unknown POC ABG pO2 70 (80-105) L 01/20/17 12: ABG pO2 75.2 mm Hg (80.0-90.0) L 12/05/16 Unknown POC ABG HCO3 23.8 01/20/17 12: ABG HCO3 20.1 mmol/L (20.0-26.0) 12/05/16 Unknown POC ABG Total CO2 25 01/20/17 12: POC ABG O2 Sat 94 01/20/17 12: ABG O2 Saturation 96.8 % (95.0-99.0) 12/05/16 Unknown ABG O2 Content 9.9 (0.0-44) 12/05/16 Unknown POC ABG Base Excess 0 01/20/17 12: ABG Base Excess -3.4 mmol/L (-2.0-3.0) L 12/05/16 Unknown ABG Hemoglobin 7.4 gm/dl (12.0-16.0) L 12/05/16 Unknown ABG Carboxyhemoglobin 1.8 % (0.0-5.0) 12/05/16 Unknown ABG Methemoglobin 0.6 % (0.0-1.5) 12/05/16 Unknown Oxyhemoglobin 94.5 % (95.0-99.0) L 12/05/16 Unknown FiO2 30 % 01/20/17 12:17 Sodium 138 mmol/L (137-145) 01/31/17 04:00 Potassium 4.1 mmol/L (3.6-5.0) 01/31/17 04:00 Chloride 103.4 mmol/L (98-107) 01/31/17 04:00 Carbon Dioxide 23 mmol/L (22-30) 01/31/17 04:00 Anion Gap 16 mmol/L 01/31/17 04:00 BUN 78 mg/dL (7-17) H 01/31/17 04:00 Creatinine 1.5 mg/dL (0.7-1.2) H 01/31/17 04:00 Estimated GFR 45 ml/min 01/31/17 04:00 BUN/Creatinine Ratio 52 % 01/31/17 04:00 Glucose 108 mg/dL (65-100) H 01/31/17 04:00 POC Glucose 122 (70-105) H 01/30/17 23:39 Osmolality 351 Mosm/kg 09/16/16 11:47 Lactic Acid 2.30 mmol/L (0.7-2.0) H* 01/09/17 08:22 Calcium 9.5 mg/dL (8.4-10.2) 01/31/17 04:00 Phosphorus 3.30 mg/dL (2.5-4.5) 01/31/17 04:00 Magnesium 2.30 mg/dL (1.7-2.3) 01/31/17 04:00 Total Bilirubin 0.50 mg/dL (0.1-1.2) 01/28/17 04:00 Direct Bilirubin 0.2 mg/dL (0-0.2) 01/28/17 04:00 Indirect Bilirubin 0.3 mg/dL 01/28/17 04:00 AST 14 units/L (5-40) 01/28/17 04:00 ALT 9 units/L (7-56) 01/28/17 04:00 Alkaline Phosphatase 113 units/L (35-129) 01/28/17 04:00 Ammonia 27.0 umol/L (25-60) 09/07/16 08:37 Lactate Dehydrogenase 170 units/L (91-180) 01/13/17 15:50 Total Creatine Kinase 121 units/L (30-135) 09/29/16 20:12 CK-MB (CK-2) < 1.0 ng/mL (0.0-4.0) 09/29/16 20:12 CK-MB (CK-2) Rel Index 0.8 (0-4) 09/29/16 20:12 Troponin T 0.204 ng/mL (0.00-0.029) H* 09/29/16 20:12 C-Reactive Protein 24.70 mg/dL (0.00-1.30) H 01/09/17 13:30 Total Protein 6.3 g/dL (6.3-8.2) 01/28/17 04:00 Albumin 1.4 g/dL (3.9-5) L 01/28/17 04:00 Albumin/Globulin Ratio 0.3 % 01/28/17 04:00 Prealbumin 0.110 g/L (0.200-0.400) L 12/29/16 05:15 Triglycerides 137 mg/dL (2-149) 09/29/16 20:12 Cholesterol 31 mg/dL (50-199) L 09/29/16 20:12 LDL Cholesterol Direct 4 mg/dL (50-130) L 09/29/16 20:12 HDL Cholesterol 3 mg/dL (40-59) L 09/29/16 20:12 Cholesterol/HDL Ratio 10.33 % 09/29/16 20:12 Angiotensin Convert Enz See scanned report 09/08/16 11:48 Renin 0.99 ng/mL/h (0.25-5.82) 10/07/16 10:56 Aldosterone <1 ng/dL () 10/07/16 10:56 Aldosterone/Renin Dir see below 10/07/16 10:56 Serotonin Release Assay See scanned report 09/29/16 13:35 TSH 1.010 mlU/mL (0.270-4.200) 09/07/16 08:37 HCG, Qual Negative (Negative) 09/03/16 00:10 Urine Color Yellow (Yellow) 11/05/16 13:09 Urine Turbidity Clear (Clear) 11/05/16 13:09 Urine pH 9.0 (5.0-7.0) H 11/05/16 13:09 Ur Specific [place] 1.011 (1.003-1.030) 11/05/16 13:09 Urine Protein 100 mg/dl mg/dL (Negative) 11/05/16 13:09 Urine Glucose (UA) Neg mg/dL (Negative) 11/05/16 13:09 Urine Ketones Neg mg/dL (Negative) 11/05/16 13:09 Urine Blood Neg (Negative) 11/05/16 13:09 Urine Nitrite Neg (Negative) 11/05/16 13:09 Urine Bilirubin Neg (Negative) 11/05/16 13:09 Urine Urobilinogen < 2.0 mg/dL (<2.0) 11/05/16 13:09 Ur Leukocyte Esterase Neg (Negative) 11/05/16 13:09 Urine WBC (Auto) 4.0 /HPF (0.0-6.0) 11/05/16 13:09 Urine RBC (Auto) 1.0 /HPF (0.0-6.0) 11/05/16 13:09 U Epithel Cells (Auto) 1.0 /HPF (0-13.0) 10/07/16 18:30 Urine Bacteria (Auto) 4+ /HPF (Negative) 11/05/16 13:09 Urine WBC Clumps 2+ /HPF 09/07/16 02:47 Hyaline Casts 4 /LPF 09/07/16 02:47 Urine Mucus Few /HPF 10/07/16 18:30 Urine Yeast (Budding) 3+ /HPF 10/07/16 18:30 Urine Eosinophils None seen (None Seen) 09/07/16 16:00 Urine Total Volume 950 11/12/16 10:18 Urine Creatinine 19.7 mg/dL (0.1-20.0) 11/12/16 10:18 Height (in) 65.0 inches 11/12/16 10:18 Weight (lb) 181.0 lbs 11/12/16 10:18 Creatinine Clearance 5 11/12/16 10:18 Urine Sodium 36 mEq/L 09/16/16 19:19 Urine Total Protein 16 mg/dL (5-11.8) H 09/16/16 19:19 Fluid Type Pleural 01/13/17 12:10 Fluid Color Yellow 01/13/17 12:10 Fluid Appearance Hazy 01/13/17 12:10 Fluid WBC 182 /mm3 01/13/17 12:10 Fluid RBC 41 /mm3 01/13/17 12:10 Fluid Seg Neutrophils 85.0 % 01/13/17 12:10 Fluid Lymphocytes 8.0 % 01/13/17 12:10 Fluid Reactive Lymphs 0 % 01/13/17 12:10 Fluid Monocytes 6.0 % 01/13/17 12:10 Fluid Eosinophils 1.0 % 01/13/17 12:10 Fluid Basophils 0 % 01/13/17 12:10 Fluid Total Protein 3.0 (15.0-45.0) L 01/13/17 12:10 Fluid LDH 1322 01/13/17 12:10 Fluid Comment Diff performed 01/13/17 12:10 Vancomycin Trough 2.3 ug/mL (5.0-20.0) L 09/21/16 13:00 Random Vancomycin 16.5 ug/mL (0-40.0) 11/28/16 09:45 Urine Opiates Screen Presumptive negative 09/03/16 15:11 Urine Methadone Screen Presumptive positive 09/03/16 15:11 Ur Barbiturates Screen Presumptive positive 09/03/16 15:11 Ur Phencyclidine Scrn Presumptive negative 09/03/16 15:11 Ur Amphetamines Screen Presumptive negative 09/03/16 15:11 U Benzodiazepines Scrn Presumptive negative 09/03/16 15:11 Urine Cocaine Screen Presumptive negative 09/03/16 15:11 U Marijuana (THC) Screen Presumptive positive 09/03/16 15:11 Drugs of Abuse Note Disclamer 09/03/16 15:11 Rheumatoid Factor 24 IU/ml (0-13) H 09/08/16 11:48 SAHIL Screen Negative (Negative) 09/07/16 09:20 Proteinase 3 (PR3) Ab <1.0 AI (<1.0) 09/07/16 09:20 Myeloperoxidase Ab <1.0 AI (<1.0) 09/07/16 09:20 Sjogren's Antibody <1.0 AI (<1.0) 09/08/16 15:35 Scl-70 Scleroderma Ab <1.0 AI (<1.0) 09/08/16 15:35 Centromere B Antibody <1.0 AI (<1.0) 09/08/16 12:02 Heparin-induced Plt Ab Negative (Negative) 09/29/16 13:35 UF Heparin High Dose 11 % Release 09/29/16 13:35 SUDHIR UFH Low Dose 0.1 6 % Release 09/29/16 13:35 SUDHIR UFH Low Dose 0.5 8 % Release 09/29/16 13:35 Cardiolipid IgG Ab <14 GPL (<=14) 09/12/16 09:59 Cardiolipid IgA Ab <11 APL (<=11) 09/12/16 09:59 Cardiolipid IgM Ab <12 MPL (<=12) 09/12/16 09:59 Complement C3 148 mg/dL (90-180) 09/07/16 09:20 Complement C4 58 mg/dL (16-47) H 09/07/16 09:20 RPR Nonreactive (Nonreactive) 09/08/16 11:48 Hepatitis A IgM Ab Non-reactive (NonReactive) 09/24/16 14:40 Hep Bs Antigen Non-reactive (Negative) 09/24/16 14:40 Hep B Core IgM Ab Non-reactive (NonReactive) 09/24/16 14:40 Hepatitis C Antibody Non-reactive (NonReactive) 09/24/16 14:40 HIV 1&2 Antibody Rapid Non react (Non React) 09/08/16 11:48 HIV P24 Antigen Non react (Non React) 09/08/16 11:48 Miscellaneous Test Flexitest 1 H 01/09/17 18:45 Blood Type A POSITIVE 01/25/17 11:15 Antibody Screen Negative 01/25/17 11:15 DELORIS Antibody Screen Negative 11/24/16 11:20 Crossmatch See Detail 01/25/17 11:15
[2017-01-31] MEDS: TRANSDERM-SCOP TD SCH (13:12)
--- NOTE | 2017-01-31 13:52 | Event Note ---
Date: 01/31/17 Given the patient's overall status, that bedside aspiration of pleural fluid would be more optimal. Percutaneous gastrojejunostomy placement would be difficult in light of the patient's prior history of gastric surgery and resection. I will discuss both of these issues with the carpet yarn winder operator.
--- NOTE | 2017-01-31 15:57 | Progress Note ---
Subjective Principal diagnosis: Acute resp failure on MVS; S/P Acute CVA; Acute Encephalopathy; JUANITA Interval history: Patient was seen today for follow-up on multiple renal-related issues Around 9: 45 in the morning She currently remains ventilator dependent, dialysis dependent patient is currently pending placement interdisciplinary notes were noted Lab results were reviewed Social history: Reviewed Medication: Reviewed Family history: Reviewed Allergies: Reviewed Physical examination General; no acute distress HEENT: Mild pallor no icterus oral mucosa moist Neck: Supple soft no jugular venous distention Chest: Bilateral clear to auscultation anteriorly posteriorly a few faint basilar crackles at the lung bases no wheezes Cardiovascular: S1-S2 heart no S3-S4 Abdomen: Soft nontender no voluntary guarding rigidity rebound no organomegaly no masses no suprapubic fullness no CVA tenderness Extremity: Minimal edema dry skin no tenderness in the Area Derm: Dry skin Assessment and plan acute kidney injury with underlying chronic kidney disease patient is currently dialysis dependent. she will continue to dialyze 3 times every week for now We'll monitor for any sign and symptoms of renal function recovery Anemia and renal failure: To monitor and follow Secondary hyperparathyroidism we'll check phosphorus and PTH level now that she is end-stage renal disease Continue with nutritional support high protein diet Renovascular hypertension currently stable respiratory failure: Status post tracheotomy vent dependent has pleural effusion currently being followed by intervention radiology massive stroke with mass effect; neurologically essentially not much changed Multiple episodes of sepsis noted this admission Paroxysmal atrial fibrillation with rapid ventricular response failed cardioversion Thrombocytopenia multifactorial Severe protein calorie malnutrition Overall prognosis appears not to be good We'll continue to follow and make recommendation from renal standpoint Objective - Vital Signs Vital signs: Vital Signs - 12hr 01/31/17 01/31/17 01/31/17 04:00 05:00 05:09 Temperature 98.3 F Pulse Rate 93 H 92 H 93 H Pulse Rate [ Anterior Bilateral Throughout] Respiratory 25 H 19 Rate Respiratory Rate [Anterior Bilateral Throughout] Blood Pressure 118/70 126/76 126/76 O2 Sat by Pulse 99 100 100 Oximetry 01/31/17 01/31/17 01/31/17 05:30 05:33 06:00 Temperature Pulse Rate 93 H 93 H 87 Pulse Rate [ Anterior Bilateral Throughout] Respiratory 18 Rate Respiratory Rate [Anterior Bilateral Throughout] Blood Pressure 126/76 126/76 114/69 O2 Sat by Pulse 100 Oximetry 01/31/17 01/31/1717 07:00 07:38 08:00 Temperature 97.7 F Pulse Rate 84 87 Pulse Rate [ Anterior Bilateral Throughout] Respiratory 20 19 Rate Respiratory Rate [Anterior Bilateral Throughout] Blood Pressure 107/63 115/63 O2 Sat by Pulse 98 98 Oximetry 01/31/17 01/31/17 01/31/17 09:00 09:05 09:11 Temperature Pulse Rate 85 91 H Pulse Rate [ 92 H Anterior Bilateral Throughout] Respiratory 28 H Rate Respiratory 36 H Rate [Anterior Bilateral Throughout] Blood Pressure 97/56 97/56 O2 Sat by Pulse 80 L 98 Oximetry 01/31/17 01/31/17 01/31/17 09:18 09:19 09:26 Temperature Pulse Rate 91 H 89 Pulse Rate [ 92 H Anterior Bilateral Throughout] Respiratory 18 Rate Respiratory 22 Rate [Anterior Bilateral Throughout] Blood Pressure 97/56 97/56 O2 Sat by Pulse 99 Oximetry 01/31/17 01/31/17 01/31/17 10:00 11:00 11:36 Temperature 97.4 F L Pulse Rate 92 H 96 H Pulse Rate [ Anterior Bilateral Throughout] Respiratory 35 H 24 Rate Respiratory Rate [Anterior Bilateral Throughout] Blood Pressure 109/74 112/73 O2 Sat by Pulse 93 98 Oximetry 01/31/17 01/31/17 01/31/17 11:44 12:00 13:00 Temperature Pulse Rate 95 H 95 H 98 H Pulse Rate [ Anterior Bilateral Throughout] Respiratory 15 20 Rate Respiratory Rate [Anterior Bilateral Throughout] Blood Pressure 112/73 120/69 116/69 O2 Sat by Pulse 98 99 100 Oximetry 01/31/17 01/31/17 01/31/17 13:11 13:15 14:00 Temperature Pulse Rate 96 H 98 H 85 Pulse Rate [ Anterior Bilateral Throughout] Respiratory 21 Rate Respiratory Rate [Anterior Bilateral Throughout] Blood Pressure 116/69 116/69 106/75 O2 Sat by Pulse 100 Oximetry 01/31/17 15:54 Temperature Pulse Rate Pulse Rate [ 87 Anterior Bilateral Throughout] Respiratory Rate Respiratory 19 Rate [Anterior Bilateral Throughout] Blood Pressure O2 Sat by Pulse Oximetry - Lab 01/28/17 04:00 01/31/17 04:00 Most recent lab results ABG pH 7.450 pH Units (7.350-7.450) 12/05/16 Unknown ABG pCO2 29.6 mm Hg 12/05/16 Unknown ABG pO2 75.2 mm Hg (80.0-90.0) L 12/05/16 Unknown ABG HCO3 20.1 mmol/L (20.0-26.0) 12/05/16 Unknown ABG O2 Saturation 96.8 % (95.0-99.0) 12/05/16 Unknown Calcium 9.5 mg/dL (8.4-10.2) 01/31/17 04:00 Phosphorus 3.30 mg/dL (2.5-4.5) 01/31/17 04:00 Magnesium 2.30 mg/dL (1.7-2.3) 01/31/17 04:00 Urine Creatinine 19.7 mg/dL (0.1-20.0) 11/12/16 10:18 Urine Sodium 36 mEq/L 09/16/16 19:19 Urine Total Protein 16 mg/dL (5-11.8) H 09/16/16 19:19
[2017-01-31] MEDS: DURAGESIC TD SCH (17:15)
[2017-01-31] MEDS ORDERED: TPN ADULT IV SCH (20:00)
[2017-02-01] MEDS: HumuLIN R SUB-Q SCH ×5 (01:16→19:22)
[2017-02-01] MEDS: LOPRESSOR PO SCH ×6 (01:36→23:31)
[2017-02-01] MEDS: DUONEB *Not for PRN Use IH SCH ×4 (02:39→19:47)
[2017-02-01] MEDS: APRESOLINE PO SCH ×3 (06:23→23:16)
[2017-02-01] MEDS: REGLAN IV SCH ×3 (06:23→22:00)
--- NOTE | 2017-02-01 09:48 | Progress Note ---
Subjective Principal diagnosis: Acute resp failure on MVS; S/P Acute CVA; Acute Encephalopathy; JUANITA Interval history: Patient was seen today for follow-up on multiple renal-related issues Around 9: 45 in the morning She currently remains ventilator dependent, dialysis dependent, also seen in supervised on hemodialysis today current access is a permacath which has been working well Patient is currently pending placement Lab results were reviewed Social history: Reviewed Medication: Reviewed Family history: Reviewed Allergies: Reviewed Physical examination General; no acute distress HEENT: Mild pallor no icterus oral mucosa moist Neck: Supple soft no jugular venous distention, cath site essentially unremarkable Chest: Bilateral clear to auscultation anteriorly posteriorly a few faint basilar crackles at the lung bases no wheezes Cardiovascular: S1-S2 heart no S3-S4 Abdomen: Soft nontender no voluntary guarding rigidity rebound no organomegaly no masses no suprapubic fullness no CVA tenderness Extremity: Minimal edema dry skin no tenderness in the Area Derm: Dry skin Assessment and plan acute kidney injury with underlying chronic kidney disease patient is currently dialysis dependent. she will continue to dialyze 3 times every week for now Seen in supervising hemodialysis as well patient will continue with Monday hemodialysis Monitor for any signs of renal function recovery patient's urine output is a little better Anemia in renal failure to monitor and follow She may benefit from one unit of packed red blood cell transfusion Mild hyperkalemia and metabolic acidosis should improve postdialysis Check phosphorus and PTH level Continue with supportive care Respiratory failure, massive stroke, paroxysmal atrial fibrillation failed cardioversion Multiple other health issues overall prognosis guarded to poor pending placement Objective - Vital Signs Vital signs: Vital Signs - 12hr 01/31/17 01/31/17 01/31/17 22:00 23:00 23:32 Temperature Pulse Rate 89 93 H 92 H Pulse Rate [ Anterior Bilateral Throughout] Pulse Rate [ Apical] Pulse Rate [ From Monitor] Pulse Rate [ Left Dorsalis Pedis] Pulse Rate [ Left Radial] Pulse Rate [ Right Dorsalis Pedis] Pulse Rate [ Right Lower Lobe] Pulse Rate [ Right Radial] Respiratory 21 13 Rate Respiratory Rate [Anterior Bilateral Throughout] Respiratory Rate [Right Lower Lobe] Blood Pressure 108/57 115/61 115/61 O2 Sat by Pulse 100 100 100 Oximetry O2 Sat by Pulse Oximetry [ Anterior Bilateral Throughout] O2 Sat by Pulse Oximetry [ Assessment] 01/31/17 01/31/17 02/01/17 23:35 23:40 00:00 Temperature 99.0 F Pulse Rate 95 H Pulse Rate [ Anterior Bilateral Throughout] Pulse Rate [ 90 Apical] Pulse Rate [ 90 From Monitor] Pulse Rate [ 90 Left Dorsalis Pedis] Pulse Rate [ 90 Left Radial] Pulse Rate [ 90 Right Dorsalis Pedis] Pulse Rate [ Right Lower Lobe] Pulse Rate [ 90 Right Radial] Respiratory 16 Rate Respiratory Rate [Anterior Bilateral Throughout] Respiratory Rate [Right Lower Lobe] Blood Pressure 109/70 O2 Sat by Pulse 100 Oximetry O2 Sat by Pulse Oximetry [ Anterior Bilateral Throughout] O2 Sat by Pulse 100 Oximetry [ Assessment] 02/01/17 02/01/17 02/01/17 01:00 01:36 02:00 Temperature Pulse Rate 96 H 95 H 90 Pulse Rate [ Anterior Bilateral Throughout] Pulse Rate [ Apical] Pulse Rate [ From Monitor] Pulse Rate [ Left Dorsalis Pedis] Pulse Rate [ Left Radial] Pulse Rate [ Right Dorsalis Pedis] Pulse Rate [ Right Lower Lobe] Pulse Rate [ Right Radial] Respiratory 17 12 Rate Respiratory Rate [Anterior Bilateral Throughout] Respiratory Rate [Right Lower Lobe] Blood Pressure 109/70 109/70 107/62 O2 Sat by Pulse 95 100 Oximetry O2 Sat by Pulse Oximetry [ Anterior Bilateral Throughout] O2 Sat by Pulse Oximetry [ Assessment] 02/01/17 02/01/17 02/01/17 02:40 03:00 03:42 Temperature Pulse Rate 84 Pulse Rate [ 85 Anterior Bilateral Throughout] Pulse Rate [ 92 H Apical] Pulse Rate [ 92 H From Monitor] Pulse Rate [ 92 H Left Dorsalis Pedis] Pulse Rate [ 92 H Left Radial] Pulse Rate [ 92 H Right Dorsalis Pedis] Pulse Rate [ Right Lower Lobe] Pulse Rate [ 92 H Right Radial] Respiratory 17 12 Rate Respiratory 18 Rate [Anterior Bilateral Throughout] Respiratory Rate [Right Lower Lobe] Blood Pressure 109/66 O2 Sat by Pulse 99 100 Oximetry O2 Sat by Pulse Oximetry [ Anterior Bilateral Throughout] O2 Sat by Pulse Oximetry [ Assessment] 02/01/17 02/01/17 02/01/17 03:51 04:00 04:03 Temperature 98.2 F 98.7 F Pulse Rate 83 Pulse Rate [ Anterior Bilateral Throughout] Pulse Rate [ Apical] Pulse Rate [ From Monitor] Pulse Rate [ Left Dorsalis Pedis] Pulse Rate [ Left Radial] Pulse Rate [ Right Dorsalis Pedis] Pulse Rate [ Right Lower Lobe] Pulse Rate [ Right Radial] Respiratory 12 14 Rate Respiratory Rate [Anterior Bilateral Throughout] Respiratory Rate [Right Lower Lobe] Blood Pressure 129/60 99/61 O2 Sat by Pulse 100 100 Oximetry O2 Sat by Pulse Oximetry [ Anterior Bilateral Throughout] O2 Sat by Pulse Oximetry [ Assessment] 02/01/17 02/01/17 02/01/17 05:00 05:08 06:00 Temperature Pulse Rate 86 87 87 Pulse Rate [ Anterior Bilateral Throughout] Pulse Rate [ Apical] Pulse Rate [ From Monitor] Pulse Rate [ Left Dorsalis Pedis] Pulse Rate [ Left Radial] Pulse Rate [ Right Dorsalis Pedis] Pulse Rate [ Right Lower Lobe] Pulse Rate [ Right Radial] Respiratory 13 18 Rate Respiratory Rate [Anterior Bilateral Throughout] Respiratory Rate [Right Lower Lobe] Blood Pressure 100/67 100/67 109/75 O2 Sat by Pulse 99 100 97 Oximetry O2 Sat by Pulse Oximetry [ Anterior Bilateral Throughout] O2 Sat by Pulse Oximetry [ Assessment] 02/01/17 02/01/17 02/01/17 06:23 07:00 07:50 Temperature Pulse Rate 90 86 85 Pulse Rate [ Anterior Bilateral Throughout] Pulse Rate [ Apical] Pulse Rate [ From Monitor] Pulse Rate [ Left Dorsalis Pedis] Pulse Rate [ Left Radial] Pulse Rate [ Right Dorsalis Pedis] Pulse Rate [ Right Lower Lobe] Pulse Rate [ Right Radial] Respiratory 19 Rate Respiratory Rate [Anterior Bilateral Throughout] Respiratory Rate [Right Lower Lobe] Blood Pressure 109/75 93/58 93/58 O2 Sat by Pulse 100 100 Oximetry O2 Sat by Pulse Oximetry [ Anterior Bilateral Throughout] O2 Sat by Pulse Oximetry [ Assessment] 02/01/17 02/01/17 02/01/17 07:58 07:59 08:00 Temperature 98.1 F Pulse Rate 83 Pulse Rate [ Anterior Bilateral Throughout] Pulse Rate [ Apical] Pulse Rate [ From Monitor] Pulse Rate [ Left Dorsalis Pedis] Pulse Rate [ Left Radial] Pulse Rate [ Right Dorsalis Pedis] Pulse Rate [ 83 83 Right Lower Lobe] Pulse Rate [ Right Radial] Respiratory 11 L Rate Respiratory Rate [Anterior Bilateral Throughout] Respiratory 18 14 Rate [Right Lower Lobe] Blood Pressure 111/76 O2 Sat by Pulse 100 Oximetry O2 Sat by Pulse Oximetry [ Anterior Bilateral Throughout] O2 Sat by Pulse 100 Oximetry [ Assessment] 02/01/17 02/01/17 09:00 09:15 Temperature 98.1 F Pulse Rate 83 83 Pulse Rate [ Anterior Bilateral Throughout] Pulse Rate [ Apical] Pulse Rate [ From Monitor] Pulse Rate [ Left Dorsalis Pedis] Pulse Rate [ Left Radial] Pulse Rate [ Right Dorsalis Pedis] Pulse Rate [ Right Lower Lobe] Pulse Rate [ Right Radial] Respiratory 12 22 Rate Respiratory Rate [Anterior Bilateral Throughout] Respiratory Rate [Right Lower Lobe] Blood Pressure 106/71 107/64 O2 Sat by Pulse 94 Oximetry O2 Sat by Pulse 97 Oximetry [ Anterior Bilateral Throughout] O2 Sat by Pulse Oximetry [ Assessment] - Lab 01/28/17 04:00 02/01/17 08:15 Most recent lab results ABG pH 7.450 pH Units (7.350-7.450) 12/05/16 Unknown ABG pCO2 29.6 mm Hg 12/05/16 Unknown ABG pO2 75.2 mm Hg (80.0-90.0) L 12/05/16 Unknown ABG HCO3 20.1 mmol/L (20.0-26.0) 12/05/16 Unknown ABG O2 Saturation 96.8 % (95.0-99.0) 12/05/16 Unknown Calcium 10.2 mg/dL (8.4-10.2) 02/01/17 08:15 Phosphorus TNR 02/01/17 06:40 Magnesium 3.00 mg/dL (1.7-2.3) H 02/01/17 06:40 Urine Creatinine 19.7 mg/dL (0.1-20.0) 11/12/16 10:18 Urine Sodium 36 mEq/L 09/16/16 19:19 Urine Total Protein 16 mg/dL (5-11.8) H 09/16/16 19:19
[2017-02-01 09:50] LABS: BUN/Creatinine Ratio TNR; Blood Urea Nitrogen TNR mg/dL (7-17); Calcium TNR mg/dL (8.4-10.2); Hemolysis Index TNR
[2017-02-01 09:52] LABS: BUN/Creatinine Ratio TNR; Blood Urea Nitrogen TNR mg/dL (7-17); Calcium TNR mg/dL (8.4-10.2); Hemolysis Index TNR
[2017-02-01 10:22] LABS: Calcium 10.2 mg/dL (8.4-10.2)
--- NOTE | 2017-02-01 11:17 | Progress Note ---
Assessment and Plan Assessment: 1) Recurrent SIRS: unclear source, fever better. 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 gastric perf (PEG placed on 09/20) +/- TPN +/- central lines -TTE 10/07 no vegetations -PICC exchanged on 10/03 -fully treated with micafungin for 14 days last day 10/13 4) History CA-UTI s/p gutierrez exchanged 5) Diarrhea - ? etiology ? antibiotic-induced, not better. 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 from GI bleed 13) Recent abdominal wall abscess at surgical site-treated 14 ) Recent Enterococcal bacteremia from PICC line infection. 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 -worsening -S/P debridement at bedside - new wound cx 01/24 +Proteus and MDR Pseudomonas (resistant to meropenem and cefepime/sensitive to ceftazidime) -CRP=24 --> 8 16) Presumed VAP: sputum + MDR Pseudomonas / Proteus Plan: -continue ceftazidime IV total 3 weeks until 02/20/17-was on meropenem -continue wound care -will see her back next week, please call me for any questions Thank you Dr Means or your consultation, will follow up with you. Pauline Carias MD Infectious Diseases Specialist [facility] ([facility] M [phone] O [phone] Subjective Date of service: 02/01/17 Principal diagnosis: Acute resp failure on MVS; S/P Acute CVA; Acute Encephalopathy; JUANITA Interval history: Interval history: Alert, no fever, remains on the vent CPAP via trach + TPN Microbiology: Blood cultures: 09/13 neg 8/ Silvia albicans 09/25 Silvia / neg 10/07 neg 11/05 neg 11/07 ngtd 10 E faecalis 1 of 4 bottles 11/25 neg / neg 01/09 ngtd Urine cultures: 09/10 neg 09/13 neg 8/4 10-100K mixed species 10/07 neg 11/05 VRE 11/07 mixed bacteria Respiratory cultures: 09/07 neg 09/13 neg 09/23 neg 11/07 MDR Pseudomonas 10 tracheal + VRE 01/09 Pseudomonas x 3 and Proteues Pleural effusion: ngtd Wound cultures: 10/17 abd wall wound purulence + Pseudomonas MDR 01/24 GNRs Stool cultures: cath tip 11/07 + [employer] Current Antimicrobials: ceftaz 01/30 Previous Antimicrobials: Zosyn 10/07 Vancomycin PO 10/01 Metronidazole 09/25 Micafungin 09/27-10/13 Meropenem 10/10 Vanco 10/17 zosyn 10/21 Cefepime 11/10 vancomyin 11/07 fluconazole 10/19 cefepime 10/29levaquin 11/05 vanco 11/23 meropenem 01/08 Objective - Exam Narrative Exam: General appearance: somnolent non communicative, on the vent via trach in mild resp distress, no following commands Eyes: anicteric sclera, moist conjunctivae; PERRLA HENT: Atraumatic; oropharynx limited; Normal external ears. +NGT with greenish secretion Neck: +trach in place; supple, no thyromegaly or lymphadenopathy Lungs: brit coarse BS CV: rrr Abdomen: Soft, non-tender, +old PEG site no drainage. +iliostomy. Right sided Surgical site x 2 with ostomy bag draining small amount yellowish secretion Extremities: +peripheral edema Skin: sacral area wounds - per wound care STAGE 4 PRESSURE INJURY TO SACRAL MEASURES 7.5X6X2.5, WITH UNDERMINING FROM @9-1 OCLOCK-2.8CM-ULCER CLEANED WITH WOUND CORD SPLICER-ULCER NEW - Sacrum wound measuring 9x11cm. Necrotic tissue noted on the wound edges and in the wound bed Psych: somnolent . Neuro: alert non verbal on the vent. Lines: PICC / gutierrez - Constitutional Vitals: Vital Signs Temp Pulse Resp BP Pulse Ox 98.1 F 84 22 90/57 97 02/01/17 09:15 02/01/17 11:00 02/01/17 09:15 02/01/17 11:00 02/01/17 09:15 Temperature -Last 24 Hours Temperature 98.1 F Temperature 98.1 F Temperature 98.7 F Temperature 98.2 F Temperature 99.0 F Temperature 98.1 F Temperature 97.7 F Temperature 97.4 F - Labs CBC & Chem 7: 01/28/17 04:00 02/01/17 09:24 Labs: Abnormal lab results 01/31/17 01/31/17 01/31/17 Range/Units 05:40 11:12 11:16 BUN (7-17) mg/dL Creatinine (0.7-1.2) mg/dL Glucose (65-100) mg/dL POC Glucose 123 H 119 H (70-105) Magnesium (1.7-2.3) mg/dL C-Reactive Protein 8.10 H (0.00-1.30) mg/dL PTH Intact (15-65) pg/mL 01/31/17 01/31/17 01/31/17 Range/Units 17:45 17:50 23:19 BUN (7-17) mg/dL Creatinine (0.7-1.2) mg/dL Glucose (65-100) mg/dL POC Glucose 111 H 118 H (70-105) Magnesium (1.7-2.3) mg/dL C-Reactive Protein (0.00-1.30) mg/dL PTH Intact 6.76 L (15-65) pg/mL 02/01/17 02/01/17 02/01/17 Range/Units 05:42 09:24 09:24 BUN 102 H (7-17) mg/dL Creatinine 1.9 H (0.7-1.2) mg/dL Glucose 120 H (65-100) mg/dL POC Glucose 122 H (70-105) Magnesium 2.60 H (1.7-2.3) mg/dL C-Reactive Protein (0.00-1.30) mg/dL PTH Intact (15-65) pg/mL
[2017-02-01] MEDS: HEPARIN IV PRN (12:49)
[2017-02-01] MEDS: HEPARIN SUB-Q SCH ×2 (13:00→22:00)
[2017-02-01] MEDS: NORVASC PO SCH (13:25)
[2017-02-01] MEDS: ROBINUL PO SCH ×2 (13:26→22:00)
[2017-02-01] MEDS: PROTONIX FEEDTUBE SCH (13:27)
--- NOTE | 2017-02-01 13:41 | Progress Note ---
Assessment and Plan Patient is 46-year-old woman with a history of hypertension, diabetes mellitus, asthma, hyperlipidemia, chronic kidney disease and anxiety, who was brought in by family because she couldn't get her words out, her face was also twisted, she was admitted for acute CVA and accelerated hypertension, she had a hx of poor adherence with her medications, and uncontrolled htn. Patient's SBP on admission was noted be greater than 260. TPA was started but this it was discontinued after 5 minutes because her blood pressure became uncontrolled. The TPA was not initiated again because the patient was outside the TPA window. Patient has had a prolonged hospital stay complicated with recurrent severe sepsis. Patient with most recent event also status post cardiac arrest on , with CPR and ROSC. Acute on chronic Hypoxemic Respiratory Failure ( not tolerating spontaneous breathing trials) Sepsis -recurrent s/p tracheostomy Hypertension Atrial Fibrillation with RVR Acute encephalopathy s/p CVA Oropharyngeal dysphagia Enterococcal bacteremia Sacral Decubitus Ulcer- unstageable s/p debridement Anemia Obesity JUANITA now on hemodialysis Enteric Fistula - VAP bundle addressed -CTchest in am for possible pleural drain placement, IR following - continue NGT to LIS -Continue promotility agent--reglan - continue wound care/wound vac per WCT - Vasopressor if MAP falls < 65mmHg - keep on with daily PSV trials and / or T-piece as tolerated - continue TPN administration (continue TPN; NPO except for meds) - continue airway clearance and secretion management - continue to wean FiO2 for sats > 94% - continue antihypertensives and monitor hemodynamics closely - continue HD/UF per nephrology - continue to follow electrolytes and correct as necessary - continue GI & VTE prophylaxis Transfuse 1 unit PRBC as needed to keep HgH>7g/dL .....she remains critically ill on life sustaining interventions including MVS and at risk for further deterioration including ...protohistorian prognosis remains poor - Patient Problems (1) Acute respiratory failure with hypoxia Current Visit: Yes Status: Acute (2) Acute blood loss anemia Current Visit: Yes Status: Resolved (3) Acute CVA (cerebrovascular accident) Current Visit: Yes Status: Acute (4) Chronic renal insufficiency Current Visit: Yes Status: Acute (5) Uncontrolled hypertension Current Visit: Yes Status: Acute (6) Leukocytosis (leucocytosis) Current Visit: Yes Status: Acute Qualifiers: Leukocytosis type: leukemoid reaction Qualified Code(s): D72.823 - Leukemoid reaction (7) Dislodged gastrostomy tube Current Visit: Yes Status: Acute (8) Fungemia Current Visit: Yes Status: Resolved (9) Cardiopulmonary arrest with successful resuscitation Current Visit: Yes Status: Acute Subjective Date of service: 02/01/17 Principal diagnosis: Acute resp failure on MVS; S/P Acute CVA; Acute Encephalopathy; JUANITA Interval history: Patient is seen today for: Acute resp failure on MVS; S/P Acute CVA; Acute Encephalopathy; JUANITA Seen and examined at bedside; 24hour events reviewed; nursing and respiratory care staff consulted; no adverse overnight events reported to me; she remains critically ill , Did not tolerate weaning today. Discussed with Radiology, plan to get CT chest, non-contrast, today and he will look at placing a pleural drain then. He also will evaluate for G-J tube Hypotension post HD today, no fevers. Discussed during interdisciplinary rounds Vitals, labs, medications, chart reviewed. Objective - Exam Narrative Exam: General appearance: somnolent non communicative, on the vent via trach in mild resp distress, no following commands Eyes: anicteric sclera, moist conjunctivae; PERRLA HENT: Atraumatic; oropharynx limited; Normal external ears. +NGT with greenish secretion Neck: +trach in place; supple, no thyromegaly or lymphadenopathy Lungs: brit coarse BS CV: rrr Abdomen: Soft, non-tender, +old PEG site no drainage. +iliostomy. Right sided Surgical site x 2 with ostomy bag draining small amount yellowish secretion Extremities: +peripheral edema Skin: sacral area wounds -s/p wound vac Psych: somnolent . Neuro: alert non verbal on the vent. Lines: PICC / gutierrez Vital Signs - 12hr 02/01/17 02/01/17 02/01/17 02:00 02:40 03:00 Temperature Pulse Rate 90 84 Pulse Rate [ 85 Anterior Bilateral Throughout] Pulse Rate [ Apical] Pulse Rate [ From Monitor] Pulse Rate [ Left Dorsalis Pedis] Pulse Rate [ Left Radial] Pulse Rate [ Right Dorsalis Pedis] Pulse Rate [ Right Lower Lobe] Pulse Rate [ Right Radial] Respiratory 12 17 Rate Respiratory 18 Rate [Anterior Bilateral Throughout] Respiratory Rate [Right Lower Lobe] Blood Pressure 107/62 109/66 O2 Sat by Pulse 100 99 Oximetry O2 Sat by Pulse Oximetry [ Anterior Bilateral Throughout] O2 Sat by Pulse Oximetry [ Assessment] 02/01/17 02/01/17 02/01/17 03:42 03:51 04:00 Temperature 98.2 F Pulse Rate 83 Pulse Rate [ Anterior Bilateral Throughout] Pulse Rate [ 92 H Apical] Pulse Rate [ 92 H From Monitor] Pulse Rate [ 92 H Left Dorsalis Pedis] Pulse Rate [ 92 H Left Radial] Pulse Rate [ 92 H Right Dorsalis Pedis] Pulse Rate [ Right Lower Lobe] Pulse Rate [ 92 H Right Radial] Respiratory 12 12 14 Rate Respiratory Rate [Anterior Bilateral Throughout] Respiratory Rate [Right Lower Lobe] Blood Pressure 129/60 99/61 O2 Sat by Pulse 100 100 100 Oximetry O2 Sat by Pulse Oximetry [ Anterior Bilateral Throughout] O2 Sat by Pulse Oximetry [ Assessment] 02/01/17 02/01/17 02/01/17 04:03 05:00 05:08 Temperature 98.7 F Pulse Rate 86 87 Pulse Rate [ Anterior Bilateral Throughout] Pulse Rate [ Apical] Pulse Rate [ From Monitor] Pulse Rate [ Left Dorsalis Pedis] Pulse Rate [ Left Radial] Pulse Rate [ Right Dorsalis Pedis] Pulse Rate [ Right Lower Lobe] Pulse Rate [ Right Radial] Respiratory 13 Rate Respiratory Rate [Anterior Bilateral Throughout] Respiratory Rate [Right Lower Lobe] Blood Pressure 100/67 100/67 O2 Sat by Pulse 99 100 Oximetry O2 Sat by Pulse Oximetry [ Anterior Bilateral Throughout] O2 Sat by Pulse Oximetry [ Assessment] 02/01/17 02/01/17 02/01/17 06:00 06:23 07:00 Temperature Pulse Rate 87 90 86 Pulse Rate [ Anterior Bilateral Throughout] Pulse Rate [ Apical] Pulse Rate [ From Monitor] Pulse Rate [ Left Dorsalis Pedis] Pulse Rate [ Left Radial] Pulse Rate [ Right Dorsalis Pedis] Pulse Rate [ Right Lower Lobe] Pulse Rate [ Right Radial] Respiratory 18 19 Rate Respiratory Rate [Anterior Bilateral Throughout] Respiratory Rate [Right Lower Lobe] Blood Pressure 109/75 109/75 93/58 O2 Sat by Pulse 97 100 Oximetry O2 Sat by Pulse Oximetry [ Anterior Bilateral Throughout] O2 Sat by Pulse Oximetry [ Assessment] 02/01/17 02/01/17 02/01/17 07:50 07:58 07:59 Temperature Pulse Rate 85 Pulse Rate [ Anterior Bilateral Throughout] Pulse Rate [ Apical] Pulse Rate [ From Monitor] Pulse Rate [ Left Dorsalis Pedis] Pulse Rate [ Left Radial] Pulse Rate [ Right Dorsalis Pedis] Pulse Rate [ 83 83 Right Lower Lobe] Pulse Rate [ Right Radial] Respiratory Rate Respiratory Rate [Anterior Bilateral Throughout] Respiratory 18 14 Rate [Right Lower Lobe] Blood Pressure 93/58 O2 Sat by Pulse 100 Oximetry O2 Sat by Pulse Oximetry [ Anterior Bilateral Throughout] O2 Sat by Pulse Oximetry [ Assessment] 02/01/17 02/01/17 02/01/17 08:00 09:00 09:15 Temperature 98.1 F 98.1 F Pulse Rate 83 83 83 Pulse Rate [ Anterior Bilateral Throughout] Pulse Rate [ Apical] Pulse Rate [ From Monitor] Pulse Rate [ Left Dorsalis Pedis] Pulse Rate [ Left Radial] Pulse Rate [ Right Dorsalis Pedis] Pulse Rate [ Right Lower Lobe] Pulse Rate [ Right Radial] Respiratory 11 L 12 22 Rate Respiratory Rate [Anterior Bilateral Throughout] Respiratory Rate [Right Lower Lobe] Blood Pressure 111/76 106/71 107/64 O2 Sat by Pulse 100 94 Oximetry O2 Sat by Pulse 97 Oximetry [ Anterior Bilateral Throughout] O2 Sat by Pulse 100 Oximetry [ Assessment] 02/01/17 02/01/17 02/01/17 09:30 09:45 10:00 Temperature Pulse Rate 83 84 83 Pulse Rate [ Anterior Bilateral Throughout] Pulse Rate [ Apical] Pulse Rate [ From Monitor] Pulse Rate [ Left Dorsalis Pedis] Pulse Rate [ Left Radial] Pulse Rate [ Right Dorsalis Pedis] Pulse Rate [ Right Lower Lobe] Pulse Rate [ Right Radial] Respiratory Rate Respiratory Rate [Anterior Bilateral Throughout] Respiratory Rate [Right Lower Lobe] Blood Pressure 107/64 99/61 88/48 O2 Sat by Pulse Oximetry O2 Sat by Pulse Oximetry [ Anterior Bilateral Throughout] O2 Sat by Pulse Oximetry [ Assessment] 02/01/17 02/01/17 02/01/17 10:15 10:30 10:50 Temperature Pulse Rate 85 85 86 Pulse Rate [ Anterior Bilateral Throughout] Pulse Rate [ Apical] Pulse Rate [ From Monitor] Pulse Rate [ Left Dorsalis Pedis] Pulse Rate [ Left Radial] Pulse Rate [ Right Dorsalis Pedis] Pulse Rate [ Right Lower Lobe] Pulse Rate [ Right Radial] Respiratory Rate Respiratory Rate [Anterior Bilateral Throughout] Respiratory Rate [Right Lower Lobe] Blood Pressure 81/48 84/52 83/49 O2 Sat by Pulse Oximetry O2 Sat by Pulse Oximetry [ Anterior Bilateral Throughout] O2 Sat by Pulse Oximetry [ Assessment] 02/01/17 02/01/17 02/01/17 11:00 11:17 11:30 Temperature Pulse Rate 84 86 86 Pulse Rate [ Anterior Bilateral Throughout] Pulse Rate [ Apical] Pulse Rate [ From Monitor] Pulse Rate [ Left Dorsalis Pedis] Pulse Rate [ Left Radial] Pulse Rate [ Right Dorsalis Pedis] Pulse Rate [ Right Lower Lobe] Pulse Rate [ Right Radial] Respiratory Rate Respiratory Rate [Anterior Bilateral Throughout] Respiratory Rate [Right Lower Lobe] Blood Pressure 90/57 88/60 82/53 O2 Sat by Pulse Oximetry O2 Sat by Pulse Oximetry [ Anterior Bilateral Throughout] O2 Sat by Pulse Oximetry [ Assessment] 02/01/17 02/01/17 02/01/17 11:33 11:45 12:02 Temperature Pulse Rate 85 84 89 Pulse Rate [ Anterior Bilateral Throughout] Pulse Rate [ Apical] Pulse Rate [ From Monitor] Pulse Rate [ Left Dorsalis Pedis] Pulse Rate [ Left Radial] Pulse Rate [ Right Dorsalis Pedis] Pulse Rate [ Right Lower Lobe] Pulse Rate [ Right Radial] Respiratory Rate Respiratory Rate [Anterior Bilateral Throughout] Respiratory Rate [Right Lower Lobe] Blood Pressure 82/53 84/52 81/49 O2 Sat by Pulse 100 Oximetry O2 Sat by Pulse Oximetry [ Anterior Bilateral Throughout] O2 Sat by Pulse Oximetry [ Assessment] 02/01/17 02/01/17 02/01/17 12:17 12:30 12:46 Temperature 98.6 F Pulse Rate 92 H 90 93 H Pulse Rate [ Anterior Bilateral Throughout] Pulse Rate [ Apical] Pulse Rate [ From Monitor] Pulse Rate [ Left Dorsalis Pedis] Pulse Rate [ Left Radial] Pulse Rate [ Right Dorsalis Pedis] Pulse Rate [ Right Lower Lobe] Pulse Rate [ Right Radial] Respiratory 16 Rate Respiratory Rate [Anterior Bilateral Throughout] Respiratory Rate [Right Lower Lobe] Blood Pressure 83/41 89/48 89/48 O2 Sat by Pulse Oximetry O2 Sat by Pulse 97 Oximetry [ Anterior Bilateral Throughout] O2 Sat by Pulse Oximetry [ Assessment] 02/01/17 02/01/17 13:25 13:29 Temperature Pulse Rate 93 H 93 H Pulse Rate [ Anterior Bilateral Throughout] Pulse Rate [ Apical] Pulse Rate [ From Monitor] Pulse Rate [ Left Dorsalis Pedis] Pulse Rate [ Left Radial] Pulse Rate [ Right Dorsalis Pedis] Pulse Rate [ Right Lower Lobe] Pulse Rate [ Right Radial] Respiratory Rate Respiratory Rate [Anterior Bilateral Throughout] Respiratory Rate [Right Lower Lobe] Blood Pressure 80/47 80/47 O2 Sat by Pulse Oximetry O2 Sat by Pulse Oximetry [ Anterior Bilateral Throughout] O2 Sat by Pulse Oximetry [ Assessment] Constitutional: appears uncomfortable, other (not tracking) Eyes: non-icteric, other (tracheostomy tube in midline of neck) ENT: oropharynx moist, oropharyngeal exudate pre Neck: supple, no lymphadenopathy, no JVD, other (no thyromegaly) Effort: mildly labored Ascultation: Bilateral: clear, diminished breath sounds (right base), rales, rhonchi (and referred upper airway sounds) Percussion: Right: dull (base), Bilateral: not dull Cardiovascular: regular rate and rhythm, other (no rubs / murmurs) Gastrointestinal: hypoactive bowel sounds, soft, non-tender, non-distended, other (RLQ & LUQ stomas with colostomy bags) Integumentary: decubitus ulcer (sacral; stage 4 s/p surgical debridement), other (no rash; no cellulitis; poor turgor) Extremities: no cyanosis, pulses normal, no ischemia or petechiae, edema (1+ bilaterally) Neurologic: pupils equal and round, unable to assess, other (encephalopathic) Psychiatric: other (unable to assess) CBC and BMP: 02/02/17 10:16 02/03/17 07:38 ABG, PT/INR, D-dimer: ABG POC ABG pH 7.436 (7.35-7.45) 01/20/17 12:17 ABG pH 7.450 pH Units (7.350-7.450) 12/05/16 Unknown POC ABG pCO2 35.3 (35-45) 01/20/17 12: ABG pCO2 29.6 mm Hg 12/05/16 Unknown POC ABG pO2 70 (80-105) L 01/20/17 12: ABG pO2 75.2 mm Hg (80.0-90.0) L 12/05/16 Unknown POC ABG HCO3 23.8 01/20/17 12:17 POC ABG Total CO2 25 01/20/17 12:17 POC ABG O2 Sat 94 01/20/17 12:17 ABG O2 Saturation 96.8 % (95.0-99.0) 12/05/16 Unknown PT/INR, D-dimer PT 15.4 Sec. (12.2-14.9) H 01/13/17 15:50 INR 1.16 (0.87-1.13) H 01/13/17 15:50 Abnormal lab findings: Abnormal Labs 09/03/16 09/03/16 09/03/16 00:03 00:10 00:10 WBC 13.9 H RBC 5.95 H Hgb Hct 44.0 H MCV 74 L MCH 22 L MCHC RDW 17.5 H Plt Count Lymph % (Auto) Towns % (Auto) Lymph # Towns # Baso # Seg Neutrophils % Seg Neuts % (Manual) Lymphocytes % (Manual) 54.0 H Monocytes % (Manual) Eosinophils % (Manual) Basophils % (Manual) Nucleated RBC % Seg Neutrophils # Seg Neutrophils # Man Lymphocytes # (Manual) 7.5 H Monocytes # (Manual) Eosinophils # (Manual) Basophils # (Manual) PT INR Fibrinogen dRVVT Confirm Interp Factor V Activity POC ABG pH POC ABG pCO2 POC ABG pO2 ABG pO2 ABG HCO3 ABG Base Excess ABG Hemoglobin Oxyhemoglobin Sodium Potassium 2.8 L* Chloride Carbon Dioxide 21 L BUN Creatinine 1.7 H Glucose 159 H POC Glucose 177 H Lactic Acid Calcium Phosphorus Magnesium Direct Bilirubin AST ALT Alkaline Phosphatase Lactate Dehydrogenase Troponin T C-Reactive Protein Total Protein Albumin Prealbumin Triglycerides Cholesterol LDL Cholesterol Direct HDL Cholesterol PTH Intact Urine pH Urine WBC (Auto) Urine Creatinine Urine Total Protein Fluid Total Protein Vancomycin Trough Rheumatoid Factor Complement C4 Miscellaneous Test Crossmatch 09/03/16 09/03/16 09/03/16 12:12 15:07 16:20 WBC RBC Hgb Hct MCV MCH MCHC RDW Plt Count Lymph % (Auto) Towns % (Auto) Lymph # Towns # Baso # Seg Neutrophils % Seg Neuts % (Manual) Lymphocytes % (Manual) Monocytes % (Manual) Eosinophils % (Manual) Basophils % (Manual) Nucleated RBC % Seg Neutrophils # Seg Neutrophils # Man Lymphocytes # (Manual) Monocytes # (Manual) Eosinophils # (Manual) Basophils # (Manual) PT INR Fibrinogen dRVVT Confirm Interp Factor V Activity POC ABG pH 7.452 H POC ABG pCO2 POC ABG pO2 ABG pO2 ABG HCO3 ABG Base Excess ABG Hemoglobin Oxyhemoglobin Sodium Potassium Chloride Carbon Dioxide BUN Creatinine Glucose POC Glucose 178 H Lactic Acid Calcium Phosphorus 2.20 L Magnesium 1.60 L Direct Bilirubin AST ALT Alkaline Phosphatase Lactate Dehydrogenase Troponin T C-Reactive Protein Total Protein Albumin Prealbumin Triglycerides Cholesterol LDL Cholesterol Direct HDL Cholesterol PTH Intact Urine pH Urine WBC (Auto) Urine Creatinine Urine Total Protein Fluid Total Protein Vancomycin Trough Rheumatoid Factor Complement C4 Miscellaneous Test Crossmatch 09/03/16 09/03/16 09/03/16 17:57 17:58 23:50 WBC RBC Hgb Hct MCV MCH MCHC RDW Plt Count Lymph % (Auto) Towns % (Auto) Lymph # Towns # Baso # Seg Neutrophils % Seg Neuts % (Manual) Lymphocytes % (Manual) Monocytes % (Manual) Eosinophils % (Manual) Basophils % (Manual) Nucleated RBC % Seg Neutrophils # Seg Neutrophils # Man Lymphocytes # (Manual) Monocytes # (Manual) Eosinophils # (Manual) Basophils # (Manual) PT INR Fibrinogen dRVVT Confirm Interp Factor V Activity POC ABG pH POC ABG pCO2 POC ABG pO2 ABG pO2 ABG HCO3 ABG Base Excess ABG Hemoglobin Oxyhemoglobin Sodium Potassium Chloride Carbon Dioxide BUN Creatinine Glucose POC Glucose 162 H 145 H Lactic Acid Calcium Phosphorus 2.30 L Magnesium Direct Bilirubin AST ALT Alkaline Phosphatase Lactate Dehydrogenase Troponin T C-Reactive Protein Total Protein Albumin Prealbumin Triglycerides Cholesterol LDL Cholesterol Direct HDL Cholesterol PTH Intact Urine pH Urine WBC (Auto) Urine Creatinine Urine Total Protein Fluid Total Protein Vancomycin Trough Rheumatoid Factor Complement C4 Miscellaneous Test Crossmatch 09/04/16 09/04/16 09/04/16 03:31 03:31 05:42 WBC RBC Hgb 9.7 L D Hct MCV 72 L MCH 23 L MCHC RDW 17.5 H Plt Count Lymph % (Auto) 11.1 L Towns % (Auto) Lymph # Towns # Baso # Seg Neutrophils % 84.3 H Seg Neuts % (Manual) Lymphocytes % (Manual) Monocytes % (Manual) Eosinophils % (Manual) Basophils % (Manual) Nucleated RBC % Seg Neutrophils # 8.9 H Seg Neutrophils # Man Lymphocytes # (Manual) Monocytes # (Manual) Eosinophils # (Manual) Basophils # (Manual) PT INR Fibrinogen dRVVT Confirm Interp Factor V Activity POC ABG pH POC ABG pCO2 POC ABG pO2 ABG pO2 ABG HCO3 ABG Base Excess ABG Hemoglobin Oxyhemoglobin Sodium 135 L Potassium 2.9 L* Chloride 97.2 L Carbon Dioxide 19 L BUN Creatinine 1.7 H Glucose 170 H POC Glucose 152 H Lactic Acid Calcium Phosphorus Magnesium Direct Bilirubin AST ALT Alkaline Phosphatase Lactate Dehydrogenase Troponin T C-Reactive Protein Total Protein Albumin Prealbumin Triglycerides 160 H Cholesterol LDL Cholesterol Direct HDL Cholesterol 31 L PTH Intact Urine pH Urine WBC (Auto) Urine Creatinine Urine Total Protein Fluid Total Protein Vancomycin Trough Rheumatoid Factor Complement C4 Miscellaneous Test Crossmatch 09/04/16 09/04/16 09/04/16 11:34 17:46 23:29 WBC RBC Hgb Hct MCV MCH MCHC RDW Plt Count Lymph % (Auto) Towns % (Auto) Lymph # Towns # Baso # Seg Neutrophils % Seg Neuts % (Manual) Lymphocytes % (Manual) Monocytes % (Manual) Eosinophils % (Manual) Basophils % (Manual) Nucleated RBC % Seg Neutrophils # Seg Neutrophils # Man Lymphocytes # (Manual) Monocytes # (Manual) Eosinophils # (Manual) Basophils # (Manual) PT INR Fibrinogen dRVVT Confirm Interp Factor V Activity POC ABG pH POC ABG pCO2 POC ABG pO2 ABG pO2 ABG HCO3 ABG Base Excess ABG Hemoglobin Oxyhemoglobin Sodium Potassium Chloride Carbon Dioxide BUN Creatinine Glucose POC Glucose 165 H 210 H 139 H Lactic Acid Calcium Phosphorus Magnesium Direct Bilirubin AST ALT Alkaline Phosphatase Lactate Dehydrogenase Troponin T C-Reactive Protein Total Protein Albumin Prealbumin Triglycerides Cholesterol LDL Cholesterol Direct HDL Cholesterol PTH Intact Urine pH Urine WBC (Auto) Urine Creatinine Urine Total Protein Fluid Total Protein Vancomycin Trough Rheumatoid Factor Complement C4 Miscellaneous Test Crossmatch 09/05/16 09/05/16 09/05/16 04:05 04:05 05:38 WBC RBC Hgb Hct MCV 76 L D MCH 23 L MCHC RDW 17.8 H Plt Count Lymph % (Auto) Towns % (Auto) Lymph # Towns # Baso # Seg Neutrophils % Seg Neuts % (Manual) Lymphocytes % (Manual) Monocytes % (Manual) Eosinophils % (Manual) Basophils % (Manual) Nucleated RBC % Seg Neutrophils # Seg Neutrophils # Man Lymphocytes # (Manual) Monocytes # (Manual) Eosinophils # (Manual) Basophils # (Manual) PT INR Fibrinogen dRVVT Confirm Interp Factor V Activity POC ABG pH POC ABG pCO2 POC ABG pO2 ABG pO2 ABG HCO3 ABG Base Excess ABG Hemoglobin Oxyhemoglobin Sodium 134 L Potassium Chloride Carbon Dioxide 18 L BUN Creatinine 1.8 H Glucose 192 H POC Glucose 175 H Lactic Acid Calcium Phosphorus Magnesium Direct Bilirubin AST ALT Alkaline Phosphatase Lactate Dehydrogenase Troponin T C-Reactive Protein Total Protein Albumin Prealbumin Triglycerides Cholesterol LDL Cholesterol Direct HDL Cholesterol PTH Intact Urine pH Urine WBC (Auto) Urine Creatinine Urine Total Protein Fluid Total Protein Vancomycin Trough Rheumatoid Factor Complement C4 Miscellaneous Test Crossmatch 09/05/16 09/05/16 09/05/16 11:38 17:48 23:22 WBC RBC Hgb Hct MCV MCH MCHC RDW Plt Count Lymph % (Auto) Towns % (Auto) Lymph # Towns # Baso # Seg Neutrophils % Seg Neuts % (Manual) Lymphocytes % (Manual) Monocytes % (Manual) Eosinophils % (Manual) Basophils % (Manual) Nucleated RBC % Seg Neutrophils # Seg Neutrophils # Man Lymphocytes # (Manual) Monocytes # (Manual) Eosinophils # (Manual) Basophils # (Manual) PT INR Fibrinogen dRVVT Confirm Interp Factor V Activity POC ABG pH POC ABG pCO2 POC ABG pO2 ABG pO2 ABG HCO3 ABG Base Excess ABG Hemoglobin Oxyhemoglobin Sodium Potassium Chloride Carbon Dioxide BUN Creatinine Glucose POC Glucose 164 H 186 H 195 H Lactic Acid Calcium Phosphorus Magnesium Direct Bilirubin AST ALT Alkaline Phosphatase Lactate Dehydrogenase Troponin T C-Reactive Protein Total Protein Albumin Prealbumin Triglycerides Cholesterol LDL Cholesterol Direct HDL Cholesterol PTH Intact Urine pH Urine WBC (Auto) Urine Creatinine Urine Total Protein Fluid Total Protein Vancomycin Trough Rheumatoid Factor Complement C4 Miscellaneous Test Crossmatch 09/06/16 09/06/16 09/06/16 04:12 05:59 07:32 WBC RBC Hgb Hct MCV MCH MCHC RDW Plt Count Lymph % (Auto) Towns % (Auto) Lymph # Towns # Baso # Seg Neutrophils % Seg Neuts % (Manual) Lymphocytes % (Manual) Monocytes % (Manual) Eosinophils % (Manual) Basophils % (Manual) Nucleated RBC % Seg Neutrophils # Seg Neutrophils # Man Lymphocytes # (Manual) Monocytes # (Manual) Eosinophils # (Manual) Basophils # (Manual) PT INR Fibrinogen dRVVT Confirm Interp Factor V Activity POC ABG pH 7.514 H POC ABG pCO2 29.1 L POC ABG pO2 72 L ABG pO2 ABG HCO3 ABG Base Excess ABG Hemoglobin Oxyhemoglobin Sodium 133 L Potassium 3.4 L Chloride 94.9 L Carbon Dioxide 19 L BUN 30 H Creatinine 2.1 H Glucose 139 H POC Glucose 146 H Lactic Acid Calcium Phosphorus Magnesium Direct Bilirubin AST ALT Alkaline Phosphatase Lactate Dehydrogenase Troponin T C-Reactive Protein Total Protein Albumin Prealbumin Triglycerides Cholesterol LDL Cholesterol Direct HDL Cholesterol PTH Intact Urine pH Urine WBC (Auto) Urine Creatinine Urine Total Protein Fluid Total Protein Vancomycin Trough Rheumatoid Factor Complement C4 Miscellaneous Test Crossmatch 09/06/16 09/06/16 09/06/16 11:57 17:58 19:02 WBC RBC Hgb Hct MCV MCH MCHC RDW Plt Count Lymph % (Auto) Towns % (Auto) Lymph # Towns # Baso # Seg Neutrophils % Seg Neuts % (Manual) Lymphocytes % (Manual) Monocytes % (Manual) Eosinophils % (Manual) Basophils % (Manual) Nucleated RBC % Seg Neutrophils # Seg Neutrophils # Man Lymphocytes # (Manual) Monocytes # (Manual) Eosinophils # (Manual) Basophils # (Manual) PT INR Fibrinogen dRVVT Confirm Interp Factor V Activity POC ABG pH 7.465 H POC ABG pCO2 32.0 L POC ABG pO2 ABG pO2 ABG HCO3 ABG Base Excess ABG Hemoglobin Oxyhemoglobin Sodium Potassium Chloride Carbon Dioxide BUN Creatinine Glucose POC Glucose 165 H 160 H Lactic Acid Calcium Phosphorus Magnesium Direct Bilirubin AST ALT Alkaline Phosphatase Lactate Dehydrogenase Troponin T C-Reactive Protein Total Protein Albumin Prealbumin Triglycerides Cholesterol LDL Cholesterol Direct HDL Cholesterol PTH Intact Urine pH Urine WBC (Auto) Urine Creatinine Urine Total Protein Fluid Total Protein Vancomycin Trough Rheumatoid Factor Complement C4 Miscellaneous Test Crossmatch 09/06/16 09/07/16 09/07/16 23:45 02:47 02:47 WBC RBC Hgb Hct MCV MCH MCHC RDW Plt Count Lymph % (Auto) Towns % (Auto) Lymph # Towns # Baso # Seg Neutrophils % Seg Neuts % (Manual) Lymphocytes % (Manual) Monocytes % (Manual) Eosinophils % (Manual) Basophils % (Manual) Nucleated RBC % Seg Neutrophils # Seg Neutrophils # Man Lymphocytes # (Manual) Monocytes # (Manual) Eosinophils # (Manual) Basophils # (Manual) PT INR Fibrinogen dRVVT Confirm Interp Factor V Activity POC ABG pH POC ABG pCO2 POC ABG pO2 ABG pO2 ABG HCO3 ABG Base Excess ABG Hemoglobin Oxyhemoglobin Sodium Potassium Chloride Carbon Dioxide BUN Creatinine Glucose POC Glucose 204 H Lactic Acid Calcium Phosphorus Magnesium Direct Bilirubin AST ALT Alkaline Phosphatase Lactate Dehydrogenase Troponin T C-Reactive Protein Total Protein Albumin Prealbumin Triglycerides Cholesterol LDL Cholesterol Direct HDL Cholesterol PTH Intact Urine pH Urine WBC (Auto) 68.0 H Urine Creatinine 106.1 H Urine Total Protein Fluid Total Protein Vancomycin Trough Rheumatoid Factor Complement C4 Miscellaneous Test Crossmatch 09/07/16 09/07/16 09/07/16 04:50 06:19 06:39 WBC RBC Hgb Hct MCV MCH MCHC RDW Plt Count Lymph % (Auto) Towns % (Auto) Lymph # Towns # Baso # Seg Neutrophils % Seg Neuts % (Manual) Lymphocytes % (Manual) Monocytes % (Manual) Eosinophils % (Manual) Basophils % (Manual) Nucleated RBC % Seg Neutrophils # Seg Neutrophils # Man Lymphocytes # (Manual) Monocytes # (Manual) Eosinophils # (Manual) Basophils # (Manual) PT INR Fibrinogen dRVVT Confirm Interp Factor V Activity POC ABG pH 7.457 H POC ABG pCO2 32.1 L POC ABG pO2 76 L ABG pO2 ABG HCO3 ABG Base Excess ABG Hemoglobin Oxyhemoglobin Sodium 132 L Potassium Chloride 94.7 L Carbon Dioxide BUN 53 H Creatinine 2.9 H Glucose 151 H POC Glucose 149 H Lactic Acid Calcium Phosphorus Magnesium Direct Bilirubin AST ALT Alkaline Phosphatase Lactate Dehydrogenase Troponin T C-Reactive Protein Total Protein Albumin Prealbumin Triglycerides Cholesterol LDL Cholesterol Direct HDL Cholesterol PTH Intact Urine pH Urine WBC (Auto) Urine Creatinine Urine Total Protein Fluid Total Protein Vancomycin Trough Rheumatoid Factor Complement C4 Miscellaneous Test Crossmatch 09/07/16 09/07/16 09/07/16 09:20 11:43 11:43 WBC 19.4 H RBC Hgb 8.3 L Hct 26.4 L D MCV 72 L D MCH 22 L MCHC RDW 17.9 H Plt Count Lymph % (Auto) 8.5 L Towns % (Auto) Lymph # Towns # 1.0 H Baso # Seg Neutrophils % 85.8 H Seg Neuts % (Manual) Lymphocytes % (Manual) Monocytes % (Manual) Eosinophils % (Manual) Basophils % (Manual) Nucleated RBC % Seg Neutrophils # 16.6 H Seg Neutrophils # Man Lymphocytes # (Manual) Monocytes # (Manual) Eosinophils # (Manual) Basophils # (Manual) PT INR Fibrinogen dRVVT Confirm Interp Factor V Activity POC ABG pH POC ABG pCO2 POC ABG pO2 ABG pO2 ABG HCO3 ABG Base Excess ABG Hemoglobin Oxyhemoglobin Sodium 134 L Potassium Chloride 97.2 L Carbon Dioxide 20 L BUN 58 H Creatinine 2.9 H Glucose 147 H POC Glucose Lactic Acid Calcium Phosphorus 2.40 L Magnesium 2.40 H Direct Bilirubin AST ALT Alkaline Phosphatase Lactate Dehydrogenase Troponin T C-Reactive Protein Total Protein 5.8 L Albumin 2.2 L Prealbumin Triglycerides Cholesterol LDL Cholesterol Direct HDL Cholesterol PTH Intact Urine pH Urine WBC (Auto) Urine Creatinine Urine Total Protein Fluid Total Protein Vancomycin Trough Rheumatoid Factor Complement C4 58 H Miscellaneous Test Crossmatch 09/07/16 09/07/16 09/07/16 11:50 16:00 17:31 WBC RBC Hgb Hct MCV MCH MCHC RDW Plt Count Lymph % (Auto) Towns % (Auto) Lymph # Towns # Baso # Seg Neutrophils % Seg Neuts % (Manual) Lymphocytes % (Manual) Monocytes % (Manual) Eosinophils % (Manual) Basophils % (Manual) Nucleated RBC % Seg Neutrophils # Seg Neutrophils # Man Lymphocytes # (Manual) Monocytes # (Manual) Eosinophils # (Manual) Basophils # (Manual) PT INR Fibrinogen dRVVT Confirm Interp Factor V Activity POC ABG pH POC ABG pCO2 POC ABG pO2 158 H ABG pO2 ABG HCO3 ABG Base Excess ABG Hemoglobin Oxyhemoglobin Sodium Potassium Chloride Carbon Dioxide BUN Creatinine Glucose POC Glucose 175 H Lactic Acid Calcium Phosphorus Magnesium Direct Bilirubin AST ALT Alkaline Phosphatase Lactate Dehydrogenase Troponin T C-Reactive Protein Total Protein Albumin Prealbumin Triglycerides Cholesterol LDL Cholesterol Direct HDL Cholesterol PTH Intact Urine pH Urine WBC (Auto) Urine Creatinine 66.3 H Urine Total Protein Fluid Total Protein Vancomycin Trough Rheumatoid Factor Complement C4 Miscellaneous Test Crossmatch 09/07/16 09/08/16 09/08/16 23:50 05:46 06:18 WBC 17.8 H RBC 3.58 L Hgb 8.1 L Hct 25.5 L MCV 71 L MCH 23 L MCHC RDW 18.4 H Plt Count Lymph % (Auto) Towns % (Auto) Lymph # Towns # Baso # Seg Neutrophils % Seg Neuts % (Manual) 92.0 H Lymphocytes % (Manual) 6.0 L Monocytes % (Manual) Eosinophils % (Manual) Basophils % (Manual) Nucleated RBC % Seg Neutrophils # Seg Neutrophils # Man 16.4 H Lymphocytes # (Manual) 1.1 L Monocytes # (Manual) Eosinophils # (Manual) Basophils # (Manual) PT INR Fibrinogen dRVVT Confirm Interp Factor V Activity POC ABG pH POC ABG pCO2 34.3 L POC ABG pO2 71 L ABG pO2 ABG HCO3 ABG Base Excess ABG Hemoglobin Oxyhemoglobin Sodium Potassium Chloride Carbon Dioxide BUN Creatinine Glucose POC Glucose 216 H Lactic Acid Calcium Phosphorus Magnesium Direct Bilirubin AST ALT Alkaline Phosphatase Lactate Dehydrogenase Troponin T C-Reactive Protein Total Protein Albumin Prealbumin Triglycerides Cholesterol LDL Cholesterol Direct HDL Cholesterol PTH Intact Urine pH Urine WBC (Auto) Urine Creatinine Urine Total Protein Fluid Total Protein Vancomycin Trough Rheumatoid Factor Complement C4 Miscellaneous Test Crossmatch 09/08/16 09/08/16 09/08/16 06:18 06:51 10:55 WBC RBC Hgb Hct MCV MCH MCHC RDW Plt Count Lymph % (Auto) Towns % (Auto) Lymph # Towns # Baso # Seg Neutrophils % Seg Neuts % (Manual) Lymphocytes % (Manual) Monocytes % (Manual) Eosinophils % (Manual) Basophils % (Manual) Nucleated RBC % Seg Neutrophils # Seg Neutrophils # Man Lymphocytes # (Manual) Monocytes # (Manual) Eosinophils # (Manual) Basophils # (Manual) PT INR Fibrinogen dRVVT Confirm Interp Factor V Activity POC ABG pH POC ABG pCO2 POC ABG pO2 ABG pO2 ABG HCO3 ABG Base Excess ABG Hemoglobin Oxyhemoglobin Sodium 133 L Potassium Chloride 96.9 L Carbon Dioxide 20 L BUN 63 H Creatinine 2.7 H Glucose 195 H POC Glucose 204 H 169 H Lactic Acid Calcium Phosphorus Magnesium Direct Bilirubin AST ALT Alkaline Phosphatase Lactate Dehydrogenase Troponin T C-Reactive Protein Total Protein Albumin Prealbumin Triglycerides Cholesterol LDL Cholesterol Direct HDL Cholesterol PTH Intact Urine pH Urine WBC (Auto) Urine Creatinine Urine Total Protein Fluid Total Protein Vancomycin Trough Rheumatoid Factor Complement C4 Miscellaneous Test Crossmatch 09/08/16 09/08/16 09/08/16 11:48 11:48 11:48 WBC RBC Hgb Hct MCV MCH MCHC RDW Plt Count Lymph % (Auto) Towns % (Auto) Lymph # Towns # Baso # Seg Neutrophils % Seg Neuts % (Manual) Lymphocytes % (Manual) Monocytes % (Manual) Eosinophils % (Manual) Basophils % (Manual) Nucleated RBC % Seg Neutrophils # Seg Neutrophils # Man Lymphocytes # (Manual) Monocytes # (Manual) Eosinophils # (Manual) Basophils # (Manual) PT INR Fibrinogen 750 H dRVVT Confirm Interp Factor V Activity POC ABG pH POC ABG pCO2 POC ABG pO2 ABG pO2 ABG HCO3 ABG Base Excess ABG Hemoglobin Oxyhemoglobin Sodium Potassium Chloride Carbon Dioxide BUN Creatinine Glucose POC Glucose Lactic Acid Calcium Phosphorus Magnesium Direct Bilirubin AST ALT Alkaline Phosphatase Lactate Dehydrogenase Troponin T C-Reactive Protein 15.70 H Total Protein Albumin Prealbumin Triglycerides Cholesterol LDL Cholesterol Direct HDL Cholesterol PTH Intact Urine pH Urine WBC (Auto) Urine Creatinine Urine Total Protein Fluid Total Protein Vancomycin Trough Rheumatoid Factor 24 H Complement C4 Miscellaneous Test Crossmatch 09/08/16 09/08/16 09/09/16 15:35 18:25 00:24 WBC RBC Hgb Hct MCV MCH MCHC RDW Plt Count Lymph % (Auto) Towns % (Auto) Lymph # Towns # Baso # Seg Neutrophils % Seg Neuts % (Manual) Lymphocytes % (Manual) Monocytes % (Manual) Eosinophils % (Manual) Basophils % (Manual) Nucleated RBC % Seg Neutrophils # Seg Neutrophils # Man Lymphocytes # (Manual) Monocytes # (Manual) Eosinophils # (Manual) Basophils # (Manual) PT INR Fibrinogen dRVVT Confirm Interp Factor V Activity 182 H POC ABG pH POC ABG pCO2 POC ABG pO2 ABG pO2 ABG HCO3 ABG Base Excess ABG Hemoglobin Oxyhemoglobin Sodium Potassium Chloride Carbon Dioxide BUN Creatinine Glucose POC Glucose 184 H 216 H Lactic Acid Calcium Phosphorus Magnesium Direct Bilirubin AST ALT Alkaline Phosphatase Lactate Dehydrogenase Troponin T C-Reactive Protein Total Protein Albumin Prealbumin Triglycerides Cholesterol LDL Cholesterol Direct HDL Cholesterol PTH Intact Urine pH Urine WBC (Auto) Urine Creatinine Urine Total Protein Fluid Total Protein Vancomycin Trough Rheumatoid Factor Complement C4 Miscellaneous Test Crossmatch 09/09/16 09/09/16 09/09/16 03:00 03:00 04:04 WBC 27.9 H RBC Hgb 8.7 L Hct 28.1 L MCV 72 L MCH 22 L MCHC RDW 18.4 H Plt Count 485 H Lymph % (Auto) Towns % (Auto) Lymph # Towns # Baso # Seg Neutrophils % Seg Neuts % (Manual) 77.0 H Lymphocytes % (Manual) 9.0 L Monocytes % (Manual) Eosinophils % (Manual) Basophils % (Manual) Nucleated RBC % Seg Neutrophils # Seg Neutrophils # Man 21.5 H Lymphocytes # (Manual) Monocytes # (Manual) 2.0 H Eosinophils # (Manual) Basophils # (Manual) PT INR Fibrinogen dRVVT Confirm Interp Factor V Activity POC ABG pH POC ABG pCO2 POC ABG pO2 121 H ABG pO2 ABG HCO3 ABG Base Excess ABG Hemoglobin Oxyhemoglobin Sodium 135 L Potassium Chloride 96.3 L Carbon Dioxide 21 L BUN 83 H Creatinine 3.0 H Glucose 135 H POC Glucose Lactic Acid Calcium Phosphorus Magnesium Direct Bilirubin AST ALT Alkaline Phosphatase Lactate Dehydrogenase Troponin T C-Reactive Protein Total Protein Albumin Prealbumin Triglycerides Cholesterol LDL Cholesterol Direct HDL Cholesterol PTH Intact Urine pH Urine WBC (Auto) Urine Creatinine Urine Total Protein Fluid Total Protein Vancomycin Trough Rheumatoid Factor Complement C4 Miscellaneous Test Crossmatch 09/09/16 09/09/16 09/09/16 05:41 11:55 14:13 WBC RBC Hgb Hct MCV MCH MCHC RDW Plt Count Lymph % (Auto) Towns % (Auto) Lymph # Towns # Baso # Seg Neutrophils % Seg Neuts % (Manual) Lymphocytes % (Manual) Monocytes % (Manual) Eosinophils % (Manual) Basophils % (Manual) Nucleated RBC % Seg Neutrophils # Seg Neutrophils # Man Lymphocytes # (Manual) Monocytes # (Manual) Eosinophils # (Manual) Basophils # (Manual) PT INR Fibrinogen dRVVT Confirm Interp Factor V Activity POC ABG pH POC ABG pCO2 POC ABG pO2 ABG pO2 ABG HCO3 ABG Base Excess ABG Hemoglobin Oxyhemoglobin Sodium Potassium Chloride Carbon Dioxide BUN Creatinine Glucose POC Glucose 155 H 186 H Lactic Acid Calcium Phosphorus Magnesium Direct Bilirubin AST ALT Alkaline Phosphatase Lactate Dehydrogenase Troponin T C-Reactive Protein Total Protein Albumin Prealbumin Triglycerides Cholesterol LDL Cholesterol Direct HDL Cholesterol PTH Intact Urine pH Urine WBC (Auto) 25.0 H Urine Creatinine Urine Total Protein Fluid Total Protein Vancomycin Trough Rheumatoid Factor Complement C4 Miscellaneous Test Crossmatch 09/09/16 09/09/16 09/10/16 17:33 23:13 05:09 WBC RBC Hgb Hct MCV MCH MCHC RDW Plt Count Lymph % (Auto) Towns % (Auto) Lymph # Towns # Baso # Seg Neutrophils % Seg Neuts % (Manual) Lymphocytes % (Manual) Monocytes % (Manual) Eosinophils % (Manual) Basophils % (Manual) Nucleated RBC % Seg Neutrophils # Seg Neutrophils # Man Lymphocytes # (Manual) Monocytes # (Manual) Eosinophils # (Manual) Basophils # (Manual) PT INR Fibrinogen dRVVT Confirm Interp Factor V Activity POC ABG pH POC ABG pCO2 POC ABG pO2 74 L ABG pO2 ABG HCO3 ABG Base Excess ABG Hemoglobin Oxyhemoglobin Sodium Potassium Chloride Carbon Dioxide BUN Creatinine Glucose POC Glucose 211 H 215 H Lactic Acid Calcium Phosphorus Magnesium Direct Bilirubin AST ALT Alkaline Phosphatase Lactate Dehydrogenase Troponin T C-Reactive Protein Total Protein Albumin Prealbumin Triglycerides Cholesterol LDL Cholesterol Direct HDL Cholesterol PTH Intact Urine pH Urine WBC (Auto) Urine Creatinine Urine Total Protein Fluid Total Protein Vancomycin Trough Rheumatoid Factor Complement C4 Miscellaneous Test Crossmatch 09/10/16 09/10/16 09/10/16 05:17 05:17 11:31 WBC 15.8 H RBC 3.25 L Hgb 7.3 L Hct 22.9 L MCV 71 L MCH 23 L MCHC RDW 18.4 H Plt Count Lymph % (Auto) Towns % (Auto) Lymph # Towns # Baso # Seg Neutrophils % Seg Neuts % (Manual) 91.0 H Lymphocytes % (Manual) 4.0 L Monocytes % (Manual) Eosinophils % (Manual) Basophils % (Manual) Nucleated RBC % Seg Neutrophils # Seg Neutrophils # Man 14.4 H Lymphocytes # (Manual) 0.6 L Monocytes # (Manual) Eosinophils # (Manual) Basophils # (Manual) PT INR Fibrinogen dRVVT Confirm Interp Factor V Activity POC ABG pH POC ABG pCO2 POC ABG pO2 ABG pO2 ABG HCO3 ABG Base Excess ABG Hemoglobin Oxyhemoglobin Sodium Potassium Chloride Carbon Dioxide 21 L BUN 93 H Creatinine 2.9 H Glucose 146 H POC Glucose 188 H Lactic Acid Calcium 8.1 L Phosphorus Magnesium Direct Bilirubin AST ALT Alkaline Phosphatase Lactate Dehydrogenase Troponin T C-Reactive Protein Total Protein Albumin Prealbumin Triglycerides Cholesterol LDL Cholesterol Direct HDL Cholesterol PTH Intact Urine pH Urine WBC (Auto) Urine Creatinine Urine Total Protein Fluid Total Protein Vancomycin Trough Rheumatoid Factor Complement C4 Miscellaneous Test Crossmatch 09/10/16 09/10/16 09/10/16 13:17 17:20 23:32 WBC RBC Hgb Hct MCV MCH MCHC RDW Plt Count Lymph % (Auto) Towns % (Auto) Lymph # Towns # Baso # Seg Neutrophils % Seg Neuts % (Manual) Lymphocytes % (Manual) Monocytes % (Manual) Eosinophils % (Manual) Basophils % (Manual) Nucleated RBC % Seg Neutrophils # Seg Neutrophils # Man Lymphocytes # (Manual) Monocytes # (Manual) Eosinophils # (Manual) Basophils # (Manual) PT INR Fibrinogen dRVVT Confirm Interp Factor V Activity POC ABG pH POC ABG pCO2 POC ABG pO2 ABG pO2 ABG HCO3 ABG Base Excess ABG Hemoglobin Oxyhemoglobin Sodium Potassium Chloride Carbon Dioxide BUN Creatinine Glucose POC Glucose 199 H 186 H Lactic Acid Calcium Phosphorus Magnesium Direct Bilirubin AST ALT Alkaline Phosphatase Lactate Dehydrogenase Troponin T C-Reactive Protein Total Protein Albumin Prealbumin Triglycerides Cholesterol LDL Cholesterol Direct HDL Cholesterol PTH Intact Urine pH Urine WBC (Auto) Urine Creatinine Urine Total Protein Fluid Total Protein Vancomycin Trough Rheumatoid Factor Complement C4 Miscellaneous Test Crossmatch See Detail 09/11/16 09/11/16 09/11/16 05:10 05:10 05:17 WBC 28.4 H RBC Hgb 9.2 L Hct 29.3 L D MCV 73 L MCH 23 L MCHC RDW 18.9 H Plt Count 452 H Lymph % (Auto) Towns % (Auto) Lymph # Towns # Baso # Seg Neutrophils % Seg Neuts % (Manual) 89.5 H Lymphocytes % (Manual) 2.0 L Monocytes % (Manual) Eosinophils % (Manual) Basophils % (Manual) Nucleated RBC % Seg Neutrophils # Seg Neutrophils # Man 25.4 H Lymphocytes # (Manual) 0.6 L Monocytes # (Manual) 1.3 H Eosinophils # (Manual) Basophils # (Manual) PT INR Fibrinogen dRVVT Confirm Interp Factor V Activity POC ABG pH POC ABG pCO2 POC ABG pO2 ABG pO2 ABG HCO3 ABG Base Excess ABG Hemoglobin Oxyhemoglobin Sodium 136 L Potassium Chloride Carbon Dioxide 18 L BUN 107 H Creatinine 2.6 H Glucose 187 H POC Glucose 230 H Lactic Acid Calcium 8.3 L Phosphorus Magnesium Direct Bilirubin AST ALT Alkaline Phosphatase Lactate Dehydrogenase Troponin T C-Reactive Protein Total Protein Albumin Prealbumin Triglycerides Cholesterol LDL Cholesterol Direct HDL Cholesterol PTH Intact Urine pH Urine WBC (Auto) Urine Creatinine Urine Total Protein Fluid Total Protein Vancomycin Trough Rheumatoid Factor Complement C4 Miscellaneous Test Crossmatch 09/11/16 09/11/16 09/11/16 05:55 12:02 17:32 WBC RBC Hgb Hct MCV MCH MCHC RDW Plt Count Lymph % (Auto) Towns % (Auto) Lymph # Towns # Baso # Seg Neutrophils % Seg Neuts % (Manual) Lymphocytes % (Manual) Monocytes % (Manual) Eosinophils % (Manual) Basophils % (Manual) Nucleated RBC % Seg Neutrophils # Seg Neutrophils # Man Lymphocytes # (Manual) Monocytes # (Manual) Eosinophils # (Manual) Basophils # (Manual) PT INR Fibrinogen dRVVT Confirm Interp Factor V Activity POC ABG pH POC ABG pCO2 33.8 L POC ABG pO2 ABG pO2 ABG HCO3 ABG Base Excess ABG Hemoglobin Oxyhemoglobin Sodium Potassium Chloride Carbon Dioxide BUN Creatinine Glucose POC Glucose 191 H 239 H Lactic Acid Calcium Phosphorus Magnesium Direct Bilirubin AST ALT Alkaline Phosphatase Lactate Dehydrogenase Troponin T C-Reactive Protein Total Protein Albumin Prealbumin Triglycerides Cholesterol LDL Cholesterol Direct HDL Cholesterol PTH Intact Urine pH Urine WBC (Auto) Urine Creatinine Urine Total Protein Fluid Total Protein Vancomycin Trough Rheumatoid Factor Complement C4 Miscellaneous Test Crossmatch 09/11/16 09/12/16 09/12/16 23:52 05:09 05:32 WBC RBC Hgb Hct MCV MCH MCHC RDW Plt Count Lymph % (Auto) Towns % (Auto) Lymph # Towns # Baso # Seg Neutrophils % Seg Neuts % (Manual) Lymphocytes % (Manual) Monocytes % (Manual) Eosinophils % (Manual) Basophils % (Manual) Nucleated RBC % Seg Neutrophils # Seg Neutrophils # Man Lymphocytes # (Manual) Monocytes # (Manual) Eosinophils # (Manual) Basophils # (Manual) PT INR Fibrinogen dRVVT Confirm Interp Factor V Activity POC ABG pH POC ABG pCO2 34.6 L POC ABG pO2 ABG pO2 ABG HCO3 ABG Base Excess ABG Hemoglobin Oxyhemoglobin Sodium Potassium Chloride Carbon Dioxide BUN Creatinine Glucose POC Glucose 265 H 184 H Lactic Acid Calcium Phosphorus Magnesium Direct Bilirubin AST ALT Alkaline Phosphatase Lactate Dehydrogenase Troponin T C-Reactive Protein Total Protein Albumin Prealbumin Triglycerides Cholesterol LDL Cholesterol Direct HDL Cholesterol PTH Intact Urine pH Urine WBC (Auto) Urine Creatinine Urine Total Protein Fluid Total Protein Vancomycin Trough Rheumatoid Factor Complement C4 Miscellaneous Test Crossmatch 09/12/16 09/12/16 09/12/16 06:45 06:45 07:22 WBC 31.7 H RBC 3.54 L Hgb 8.3 L Hct 25.9 L MCV 73 L MCH 23 L MCHC RDW 18.9 H Plt Count Lymph % (Auto) Towns % (Auto) Lymph # Towns # Baso # Seg Neutrophils % Seg Neuts % (Manual) 88.5 H Lymphocytes % (Manual) 4.5 L Monocytes % (Manual) Eosinophils % (Manual) Basophils % (Manual) Nucleated RBC % Seg Neutrophils # Seg Neutrophils # Man 28.1 H Lymphocytes # (Manual) Monocytes # (Manual) 1.0 H Eosinophils # (Manual) Basophils # (Manual) PT INR Fibrinogen dRVVT Confirm Interp Factor V Activity POC ABG pH POC ABG pCO2 POC ABG pO2 ABG pO2 ABG HCO3 ABG Base Excess ABG Hemoglobin Oxyhemoglobin Sodium Potassium Chloride Carbon Dioxide 20 L BUN 115 H Creatinine 2.7 H Glucose 165 H POC Glucose Lactic Acid Calcium 8.0 L Phosphorus Magnesium Direct Bilirubin AST ALT Alkaline Phosphatase Lactate Dehydrogenase Troponin T C-Reactive Protein Total Protein Albumin Prealbumin Triglycerides 217 H Cholesterol LDL Cholesterol Direct HDL Cholesterol PTH Intact Urine pH Urine WBC (Auto) Urine Creatinine Urine Total Protein Fluid Total Protein Vancomycin Trough Rheumatoid Factor Complement C4 Miscellaneous Test Crossmatch 09/12/16 09/12/16 09/12/16 07:22 09:59 12:21 WBC RBC Hgb Hct MCV MCH MCHC RDW Plt Count Lymph % (Auto) Towns % (Auto) Lymph # Towns # Baso # Seg Neutrophils % Seg Neuts % (Manual) Lymphocytes % (Manual) Monocytes % (Manual) Eosinophils % (Manual) Basophils % (Manual) Nucleated RBC % Seg Neutrophils # Seg Neutrophils # Man Lymphocytes # (Manual) Monocytes # (Manual) Eosinophils # (Manual) Basophils # (Manual) PT INR Fibrinogen dRVVT Confirm Interp Positive H Factor V Activity POC ABG pH POC ABG pCO2 POC ABG pO2 ABG pO2 ABG HCO3 ABG Base Excess ABG Hemoglobin Oxyhemoglobin Sodium Potassium Chloride Carbon Dioxide BUN Creatinine Glucose POC Glucose 224 H Lactic Acid Calcium Phosphorus Magnesium Direct Bilirubin AST ALT Alkaline Phosphatase Lactate Dehydrogenase Troponin T C-Reactive Protein 1.70 H Total Protein Albumin Prealbumin Triglycerides Cholesterol LDL Cholesterol Direct HDL Cholesterol PTH Intact Urine pH Urine WBC (Auto) Urine Creatinine Urine Total Protein Fluid Total Protein Vancomycin Trough Rheumatoid Factor Complement C4 Miscellaneous Test Crossmatch 09/12/16 09/12/16 09/13/16 16:51 23:28 04:00 WBC 45.0 H* RBC Hgb 9.4 L Hct MCV 75 L MCH 23 L MCHC RDW 19.0 H Plt Count 470 H Lymph % (Auto) Towns % (Auto) Lymph # Towns # Baso # Seg Neutrophils % Seg Neuts % (Manual) 89.0 H Lymphocytes % (Manual) 5.0 L Monocytes % (Manual) Eosinophils % (Manual) Basophils % (Manual) Nucleated RBC % Seg Neutrophils # Seg Neutrophils # Man 40.1 H Lymphocytes # (Manual) Monocytes # (Manual) Eosinophils # (Manual) Basophils # (Manual) PT INR Fibrinogen dRVVT Confirm Interp Factor V Activity POC ABG pH POC ABG pCO2 POC ABG pO2 ABG pO2 ABG HCO3 ABG Base Excess ABG Hemoglobin Oxyhemoglobin Sodium Potassium Chloride Carbon Dioxide BUN Creatinine Glucose POC Glucose 169 H 150 H Lactic Acid Calcium Phosphorus Magnesium Direct Bilirubin AST ALT Alkaline Phosphatase Lactate Dehydrogenase Troponin T C-Reactive Protein Total Protein Albumin Prealbumin Triglycerides Cholesterol LDL Cholesterol Direct HDL Cholesterol PTH Intact Urine pH Urine WBC (Auto) Urine Creatinine Urine Total Protein Fluid Total Protein Vancomycin Trough Rheumatoid Factor Complement C4 Miscellaneous Test Crossmatch 09/13/16 09/13/16 09/13/16 04:00 11:26 17:31 WBC RBC Hgb Hct MCV MCH MCHC RDW Plt Count Lymph % (Auto) Towns % (Auto) Lymph # Towns # Baso # Seg Neutrophils % Seg Neuts % (Manual) Lymphocytes % (Manual) Monocytes % (Manual) Eosinophils % (Manual) Basophils % (Manual) Nucleated RBC % Seg Neutrophils # Seg Neutrophils # Man Lymphocytes # (Manual) Monocytes # (Manual) Eosinophils # (Manual) Basophils # (Manual) PT INR Fibrinogen dRVVT Confirm Interp Factor V Activity POC ABG pH POC ABG pCO2 POC ABG pO2 ABG pO2 ABG HCO3 ABG Base Excess ABG Hemoglobin Oxyhemoglobin Sodium Potassium Chloride Carbon Dioxide 20 L BUN 116 H Creatinine 3.0 H Glucose 172 H POC Glucose 140 H 183 H Lactic Acid Calcium Phosphorus Magnesium Direct Bilirubin AST ALT Alkaline Phosphatase Lactate Dehydrogenase Troponin T C-Reactive Protein Total Protein 6.2 L Albumin 2.9 L Prealbumin Triglycerides Cholesterol LDL Cholesterol Direct HDL Cholesterol PTH Intact Urine pH Urine WBC (Auto) Urine Creatinine Urine Total Protein Fluid Total Protein Vancomycin Trough Rheumatoid Factor Complement C4 Miscellaneous Test Crossmatch 09/13/16 09/14/16 09/14/16 23:23 04:06 04:07 WBC 29.4 H RBC Hgb 8.9 L Hct 27.3 L MCV 75 L MCH 24 L MCHC RDW 19.1 H Plt Count Lymph % (Auto) Towns % (Auto) Lymph # Towns # Baso # Seg Neutrophils % Seg Neuts % (Manual) 84.0 H Lymphocytes % (Manual) 6.0 L Monocytes % (Manual) 9.0 H Eosinophils % (Manual) Basophils % (Manual) Nucleated RBC % Seg Neutrophils # Seg Neutrophils # Man 24.7 H Lymphocytes # (Manual) Monocytes # (Manual) 2.6 H Eosinophils # (Manual) Basophils # (Manual) PT INR Fibrinogen dRVVT Confirm Interp Factor V Activity POC ABG pH 7.342 L POC ABG pCO2 POC ABG pO2 116 H ABG pO2 ABG HCO3 ABG Base Excess ABG Hemoglobin Oxyhemoglobin Sodium Potassium Chloride Carbon Dioxide BUN Creatinine Glucose POC Glucose 154 H Lactic Acid Calcium Phosphorus Magnesium Direct Bilirubin AST ALT Alkaline Phosphatase Lactate Dehydrogenase Troponin T C-Reactive Protein Total Protein Albumin Prealbumin Triglycerides Cholesterol LDL Cholesterol Direct HDL Cholesterol PTH Intact Urine pH Urine WBC (Auto) Urine Creatinine Urine Total Protein Fluid Total Protein Vancomycin Trough Rheumatoid Factor Complement C4 Miscellaneous Test Crossmatch 09/14/16 09/14/16 09/14/16 04:07 05:29 12:19 WBC RBC Hgb Hct MCV MCH MCHC RDW Plt Count Lymph % (Auto) Towns % (Auto) Lymph # Towns # Baso # Seg Neutrophils % Seg Neuts % (Manual) Lymphocytes % (Manual) Monocytes % (Manual) Eosinophils % (Manual) Basophils % (Manual) Nucleated RBC % Seg Neutrophils # Seg Neutrophils # Man Lymphocytes # (Manual) Monocytes # (Manual) Eosinophils # (Manual) Basophils # (Manual) PT INR Fibrinogen dRVVT Confirm Interp Factor V Activity POC ABG pH POC ABG pCO2 POC ABG pO2 ABG pO2 ABG HCO3 ABG Base Excess ABG Hemoglobin Oxyhemoglobin Sodium 136 L Potassium Chloride Carbon Dioxide 18 L BUN 121 H Creatinine 2.8 H Glucose 214 H POC Glucose 239 H 181 H Lactic Acid Calcium Phosphorus Magnesium Direct Bilirubin AST ALT Alkaline Phosphatase Lactate Dehydrogenase Troponin T C-Reactive Protein Total Protein Albumin Prealbumin Triglycerides Cholesterol LDL Cholesterol Direct HDL Cholesterol PTH Intact Urine pH Urine WBC (Auto) Urine Creatinine Urine Total Protein Fluid Total Protein Vancomycin Trough Rheumatoid Factor Complement C4 Miscellaneous Test Crossmatch 09/14/16 09/14/16 09/15/16 18:12 23:37 05:00 WBC 26.1 H RBC 3.05 L Hgb 7.2 L Hct 22.9 L MCV 75 L MCH 24 L MCHC RDW 19.0 H Plt Count Lymph % (Auto) Towns % (Auto) Lymph # Towns # Baso # Seg Neutrophils % Seg Neuts % (Manual) Lymphocytes % (Manual) Monocytes % (Manual) Eosinophils % (Manual) Basophils % (Manual) Nucleated RBC % Seg Neutrophils # Seg Neutrophils # Man Lymphocytes # (Manual) Monocytes # (Manual) Eosinophils # (Manual) Basophils # (Manual) PT INR Fibrinogen dRVVT Confirm Interp Factor V Activity POC ABG pH POC ABG pCO2 POC ABG pO2 ABG pO2 ABG HCO3 ABG Base Excess ABG Hemoglobin Oxyhemoglobin Sodium Potassium Chloride Carbon Dioxide BUN Creatinine Glucose POC Glucose 266 H 154 H Lactic Acid Calcium Phosphorus Magnesium Direct Bilirubin AST ALT Alkaline Phosphatase Lactate Dehydrogenase Troponin T C-Reactive Protein Total Protein Albumin Prealbumin Triglycerides Cholesterol LDL Cholesterol Direct HDL Cholesterol PTH Intact Urine pH Urine WBC (Auto) Urine Creatinine Urine Total Protein Fluid Total Protein Vancomycin Trough Rheumatoid Factor Complement C4 Miscellaneous Test Crossmatch 09/15/16 09/15/16 09/15/16 05:00 05:17 12:45 WBC RBC Hgb Hct MCV MCH MCHC RDW Plt Count Lymph % (Auto) Towns % (Auto) Lymph # Towns # Baso # Seg Neutrophils % Seg Neuts % (Manual) Lymphocytes % (Manual) Monocytes % (Manual) Eosinophils % (Manual) Basophils % (Manual) Nucleated RBC % Seg Neutrophils # Seg Neutrophils # Man Lymphocytes # (Manual) Monocytes # (Manual) Eosinophils # (Manual) Basophils # (Manual) PT INR Fibrinogen dRVVT Confirm Interp Factor V Activity POC ABG pH POC ABG pCO2 POC ABG pO2 ABG pO2 ABG HCO3 ABG Base Excess ABG Hemoglobin Oxyhemoglobin Sodium Potassium 5.2 H Chloride Carbon Dioxide 18 L BUN 139 H Creatinine 3.7 H Glucose 227 H POC Glucose 226 H 244 H Lactic Acid Calcium 8.3 L Phosphorus Magnesium Direct Bilirubin AST ALT Alkaline Phosphatase Lactate Dehydrogenase Troponin T C-Reactive Protein Total Protein Albumin Prealbumin Triglycerides Cholesterol LDL Cholesterol Direct HDL Cholesterol PTH Intact Urine pH Urine WBC (Auto) Urine Creatinine Urine Total Protein Fluid Total Protein Vancomycin Trough Rheumatoid Factor Complement C4 Miscellaneous Test Crossmatch 09/15/16 09/15/16 09/15/16 14:32 17:33 23:35 WBC RBC Hgb Hct MCV MCH MCHC RDW Plt Count Lymph % (Auto) Towns % (Auto) Lymph # Towns # Baso # Seg Neutrophils % Seg Neuts % (Manual) Lymphocytes % (Manual) Monocytes % (Manual) Eosinophils % (Manual) Basophils % (Manual) Nucleated RBC % Seg Neutrophils # Seg Neutrophils # Man Lymphocytes # (Manual) Monocytes # (Manual) Eosinophils # (Manual) Basophils # (Manual) PT INR Fibrinogen dRVVT Confirm Interp Factor V Activity POC ABG pH POC ABG pCO2 27.7 L POC ABG pO2 120 H ABG pO2 ABG HCO3 ABG Base Excess ABG Hemoglobin Oxyhemoglobin Sodium Potassium Chloride Carbon Dioxide BUN Creatinine Glucose POC Glucose 232 H 167 H Lactic Acid Calcium Phosphorus Magnesium Direct Bilirubin AST ALT Alkaline Phosphatase Lactate Dehydrogenase Troponin T C-Reactive Protein Total Protein Albumin Prealbumin Triglycerides Cholesterol LDL Cholesterol Direct HDL Cholesterol PTH Intact Urine pH Urine WBC (Auto) Urine Creatinine Urine Total Protein Fluid Total Protein Vancomycin Trough Rheumatoid Factor Complement C4 Miscellaneous Test Crossmatch 09/16/16 09/16/16 09/16/16 03:58 10:27 10:27 WBC 19.0 H RBC 2.77 L Hgb 6.5 L Hct 20.9 L MCV 76 L MCH 23 L MCHC RDW 19.3 H Plt Count Lymph % (Auto) 11.0 L Towns % (Auto) Lymph # Towns # 1.1 H Baso # Seg Neutrophils % 82.5 H Seg Neuts % (Manual) Lymphocytes % (Manual) Monocytes % (Manual) Eosinophils % (Manual) Basophils % (Manual) Nucleated RBC % Seg Neutrophils # 15.7 H Seg Neutrophils # Man Lymphocytes # (Manual) Monocytes # (Manual) Eosinophils # (Manual) Basophils # (Manual) PT INR Fibrinogen dRVVT Confirm Interp Factor V Activity POC ABG pH POC ABG pCO2 POC ABG pO2 ABG pO2 ABG HCO3 ABG Base Excess ABG Hemoglobin Oxyhemoglobin Sodium Potassium Chloride 109.3 H Carbon Dioxide 18 L BUN 139 H Creatinine 4.1 H Glucose 144 H POC Glucose 146 H Lactic Acid Calcium 8.1 L Phosphorus Magnesium Direct Bilirubin AST ALT Alkaline Phosphatase Lactate Dehydrogenase Troponin T C-Reactive Protein Total Protein Albumin Prealbumin Triglycerides Cholesterol LDL Cholesterol Direct HDL Cholesterol PTH Intact Urine pH Urine WBC (Auto) Urine Creatinine Urine Total Protein Fluid Total Protein Vancomycin Trough Rheumatoid Factor Complement C4 Miscellaneous Test Crossmatch 09/16/16 09/16/16 09/16/16 12:04 12:10 13:55 WBC RBC Hgb Hct MCV MCH MCHC RDW Plt Count Lymph % (Auto) Towns % (Auto) Lymph # [place] # Baso # Seg Neutrophils % Seg Neuts % (Manual) Lymphocytes % (Manual) Monocytes % (Manual) Eosinophils % (Manual) Basophils % (Manual) Nucleated RBC % Seg Neutrophils # Seg Neutrophils # Man Lymphocytes # (Manual) Monocytes # (Manual) Eosinophils # (Manual) Basophils # (Manual) PT INR Fibrinogen dRVVT Confirm Interp Factor V Activity POC ABG pH POC ABG pCO2 32.9 L POC ABG pO2 ABG pO2 ABG HCO3 ABG Base Excess ABG Hemoglobin Oxyhemoglobin Sodium Potassium Chloride Carbon Dioxide BUN Creatinine Glucose POC Glucose 185 H Lactic Acid Calcium Phosphorus Magnesium Direct Bilirubin AST ALT Alkaline Phosphatase Lactate Dehydrogenase Troponin T C-Reactive Protein Total Protein Albumin Prealbumin Triglycerides Cholesterol LDL Cholesterol Direct HDL Cholesterol PTH Intact Urine pH Urine WBC (Auto) Urine Creatinine Urine Total Protein Fluid Total Protein Vancomycin Trough Rheumatoid Factor Complement C4 Miscellaneous Test Crossmatch See Detail 09/16/16 09/16/16 09/16/16 17:55 19:19 23:48 WBC RBC Hgb Hct MCV MCH MCHC RDW Plt Count Lymph % (Auto) Towns % (Auto) Lymph # [place] # Baso # Seg Neutrophils % Seg Neuts % (Manual) Lymphocytes % (Manual) Monocytes % (Manual) Eosinophils % (Manual) Basophils % (Manual) Nucleated RBC % Seg Neutrophils # Seg Neutrophils # Man Lymphocytes # (Manual) Monocytes # (Manual) Eosinophils # (Manual) Basophils # (Manual) PT INR Fibrinogen dRVVT Confirm Interp Factor V Activity POC ABG pH POC ABG pCO2 POC ABG pO2 ABG pO2 ABG HCO3 ABG Base Excess ABG Hemoglobin Oxyhemoglobin Sodium Potassium Chloride Carbon Dioxide BUN Creatinine Glucose POC Glucose 222 H 107 H Lactic Acid Calcium Phosphorus Magnesium Direct Bilirubin AST ALT Alkaline Phosphatase Lactate Dehydrogenase Troponin T C-Reactive Protein Total Protein Albumin Prealbumin Triglycerides Cholesterol LDL Cholesterol Direct HDL Cholesterol PTH Intact Urine pH Urine WBC (Auto) Urine Creatinine 47.4 H Urine Total Protein 16 H Fluid Total Protein Vancomycin Trough Rheumatoid Factor Complement C4 Miscellaneous Test Crossmatch 09/17/16 09/17/16 09/17/16 03:45 03:45 04:55 WBC 19.6 H RBC 3.41 L Hgb 8.5 L Hct 26.7 L MCV 78 L MCH 25 L MCHC RDW 19.9 H Plt Count Lymph % (Auto) 9.3 L Towns % (Auto) Lymph # Towns # 1.2 H Baso # Seg Neutrophils % 83.9 H Seg Neuts % (Manual) Lymphocytes % (Manual) Monocytes % (Manual) Eosinophils % (Manual) Basophils % (Manual) Nucleated RBC % Seg Neutrophils # 16.4 H Seg Neutrophils # Man Lymphocytes # (Manual) Monocytes # (Manual) Eosinophils # (Manual) Basophils # (Manual) PT INR Fibrinogen dRVVT Confirm Interp Factor V Activity POC ABG pH POC ABG pCO2 POC ABG pO2 ABG pO2 ABG HCO3 ABG Base Excess ABG Hemoglobin Oxyhemoglobin Sodium 146 H Potassium 5.1 H Chloride 110.9 H Carbon Dioxide 16 L BUN 146 H Creatinine 4.0 H Glucose 108 H POC Glucose 133 H Lactic Acid Calcium Phosphorus Magnesium 3.00 H Direct Bilirubin AST ALT Alkaline Phosphatase Lactate Dehydrogenase Troponin T C-Reactive Protein Total Protein Albumin Prealbumin Triglycerides Cholesterol LDL Cholesterol Direct HDL Cholesterol PTH Intact Urine pH Urine WBC (Auto) Urine Creatinine Urine Total Protein Fluid Total Protein Vancomycin Trough Rheumatoid Factor Complement C4 Miscellaneous Test Crossmatch 09/17/16 09/17/16 09/17/16 11:15 17:33 23:47 WBC RBC Hgb Hct MCV MCH MCHC RDW Plt Count Lymph % (Auto) Towns % (Auto) Lymph # [place] # Baso # Seg Neutrophils % Seg Neuts % (Manual) Lymphocytes % (Manual) Monocytes % (Manual) Eosinophils % (Manual) Basophils % (Manual) Nucleated RBC % Seg Neutrophils # Seg Neutrophils # Man Lymphocytes # (Manual) Monocytes # (Manual) Eosinophils # (Manual) Basophils # (Manual) PT INR Fibrinogen dRVVT Confirm Interp Factor V Activity POC ABG pH POC ABG pCO2 POC ABG pO2 ABG pO2 ABG HCO3 ABG Base Excess ABG Hemoglobin Oxyhemoglobin Sodium Potassium Chloride Carbon Dioxide BUN Creatinine Glucose POC Glucose 176 H 246 H 148 H Lactic Acid Calcium Phosphorus Magnesium Direct Bilirubin AST ALT Alkaline Phosphatase Lactate Dehydrogenase Troponin T C-Reactive Protein Total Protein Albumin Prealbumin Triglycerides Cholesterol LDL Cholesterol Direct HDL Cholesterol PTH Intact Urine pH Urine WBC (Auto) Urine Creatinine Urine Total Protein Fluid Total Protein Vancomycin Trough Rheumatoid Factor Complement C4 Miscellaneous Test Crossmatch 09/18/16 09/18/16 09/18/16 05:33 08:31 08:31 WBC 18.0 H RBC 3.17 L Hgb 9.0 L Hct 25.7 L MCV MCH MCHC 35 H RDW 20.4 H Plt Count Lymph % (Auto) Towns % (Auto) Lymph # [place] # Baso # Seg Neutrophils % Seg Neuts % (Manual) Lymphocytes % (Manual) Monocytes % (Manual) Eosinophils % (Manual) Basophils % (Manual) Nucleated RBC % Seg Neutrophils # Seg Neutrophils # Man Lymphocytes # (Manual) Monocytes # (Manual) Eosinophils # (Manual) Basophils # (Manual) PT INR Fibrinogen dRVVT Confirm Interp Factor V Activity POC ABG pH POC ABG pCO2 POC ABG pO2 ABG pO2 ABG HCO3 ABG Base Excess ABG Hemoglobin Oxyhemoglobin Sodium Potassium Chloride Carbon Dioxide 15 L BUN 124 H Creatinine 3.8 H Glucose POC Glucose 120 H Lactic Acid Calcium 8.1 L Phosphorus Magnesium Direct Bilirubin AST ALT Alkaline Phosphatase Lactate Dehydrogenase Troponin T C-Reactive Protein Total Protein Albumin Prealbumin Triglycerides Cholesterol LDL Cholesterol Direct HDL Cholesterol PTH Intact Urine pH Urine WBC (Auto) Urine Creatinine Urine Total Protein Fluid Total Protein Vancomycin Trough Rheumatoid Factor Complement C4 Miscellaneous Test Crossmatch 09/18/16 09/18/16 09/18/16 12:03 15:34 17:50 WBC RBC Hgb Hct MCV MCH MCHC RDW Plt Count Lymph % (Auto) Towns % (Auto) Lymph # [place] # Baso # Seg Neutrophils % Seg Neuts % (Manual) Lymphocytes % (Manual) Monocytes % (Manual) Eosinophils % (Manual) Basophils % (Manual) Nucleated RBC % Seg Neutrophils # Seg Neutrophils # Man Lymphocytes # (Manual) Monocytes # (Manual) Eosinophils # (Manual) Basophils # (Manual) PT INR Fibrinogen dRVVT Confirm Interp Factor V Activity POC ABG pH POC ABG pCO2 25.7 L POC ABG pO2 66 L ABG pO2 ABG HCO3 ABG Base Excess ABG Hemoglobin Oxyhemoglobin Sodium Potassium Chloride Carbon Dioxide BUN Creatinine Glucose POC Glucose 156 H 220 H Lactic Acid Calcium Phosphorus Magnesium Direct Bilirubin AST ALT Alkaline Phosphatase Lactate Dehydrogenase Troponin T C-Reactive Protein Total Protein Albumin Prealbumin Triglycerides Cholesterol LDL Cholesterol Direct HDL Cholesterol PTH Intact Urine pH Urine WBC (Auto) Urine Creatinine Urine Total Protein Fluid Total Protein Vancomycin Trough Rheumatoid Factor Complement C4 Miscellaneous Test Crossmatch 09/19/16 09/19/16 09/19/16 06:21 09:50 09:50 WBC 17.1 H RBC 3.49 L Hgb 9.0 L Hct 28.1 L MCV MCH 26 L MCHC RDW 20.8 H Plt Count Lymph % (Auto) 11.5 L Towns % (Auto) 7.5 H Lymph # [place]s # 1.3 H Baso # Seg Neutrophils % 79.8 H Seg Neuts % (Manual) Lymphocytes % (Manual) Monocytes % (Manual) Eosinophils % (Manual) Basophils % (Manual) Nucleated RBC % Seg Neutrophils # 13.7 H Seg Neutrophils # Man Lymphocytes # (Manual) Monocytes # (Manual) Eosinophils # (Manual) Basophils # (Manual) PT INR Fibrinogen dRVVT Confirm Interp Factor V Activity POC ABG pH POC ABG pCO2 POC ABG pO2 ABG pO2 ABG HCO3 ABG Base Excess ABG Hemoglobin Oxyhemoglobin Sodium Potassium Chloride 108.6 H Carbon Dioxide 15 L BUN 125 H Creatinine 4.1 H Glucose 124 H POC Glucose 119 H Lactic Acid Calcium Phosphorus Magnesium Direct Bilirubin AST ALT Alkaline Phosphatase Lactate Dehydrogenase Troponin T C-Reactive Protein Total Protein Albumin Prealbumin Triglycerides Cholesterol LDL Cholesterol Direct HDL Cholesterol PTH Intact Urine pH Urine WBC (Auto) Urine Creatinine Urine Total Protein Fluid Total Protein Vancomycin Trough Rheumatoid Factor Complement C4 Miscellaneous Test Crossmatch 09/19/16 09/19/16 09/19/16 11:25 17:53 23:36 WBC RBC Hgb Hct MCV MCH MCHC RDW Plt Count Lymph % (Auto) [place]s % (Auto) Lymph # [place] # Baso # Seg Neutrophils % Seg Neuts % (Manual) Lymphocytes % (Manual) Monocytes % (Manual) Eosinophils % (Manual) Basophils % (Manual) Nucleated RBC % Seg Neutrophils # Seg Neutrophils # Man Lymphocytes # (Manual) Monocytes # (Manual) Eosinophils # (Manual) Basophils # (Manual) PT INR Fibrinogen dRVVT Confirm Interp Factor V Activity POC ABG pH POC ABG pCO2 POC ABG pO2 ABG pO2 ABG HCO3 ABG Base Excess ABG Hemoglobin Oxyhemoglobin Sodium Potassium Chloride Carbon Dioxide BUN Creatinine Glucose POC Glucose 160 H 245 H 121 H Lactic Acid Calcium Phosphorus Magnesium Direct Bilirubin AST ALT Alkaline Phosphatase Lactate Dehydrogenase Troponin T C-Reactive Protein Total Protein Albumin Prealbumin Triglycerides Cholesterol LDL Cholesterol Direct HDL Cholesterol PTH Intact Urine pH Urine WBC (Auto) Urine Creatinine Urine Total Protein Fluid Total Protein Vancomycin Trough Rheumatoid Factor Complement C4 Miscellaneous Test Crossmatch 09/20/16 09/20/16 09/20/16 04:10 04:10 04:10 WBC 17.0 H RBC 3.21 L Hgb 8.2 L Hct 25.5 L MCV MCH 26 L MCHC RDW 20.9 H Plt Count Lymph % (Auto) [place]s % (Auto) Lymph # [place] # Baso # Seg Neutrophils % Seg Neuts % (Manual) Lymphocytes % (Manual) Monocytes % (Manual) Eosinophils % (Manual) Basophils % (Manual) Nucleated RBC % Seg Neutrophils # Seg Neutrophils # Man Lymphocytes # (Manual) Monocytes # (Manual) Eosinophils # (Manual) Basophils # (Manual) PT INR Fibrinogen dRVVT Confirm Interp Factor V Activity POC ABG pH POC ABG pCO2 POC ABG pO2 ABG pO2 ABG HCO3 ABG Base Excess ABG Hemoglobin Oxyhemoglobin Sodium Potassium Chloride 111.0 H Carbon Dioxide 16 L BUN 129 H Creatinine 3.7 H Glucose 115 H POC Glucose Lactic Acid Calcium 8.2 L Phosphorus Magnesium Direct Bilirubin AST ALT Alkaline Phosphatase Lactate Dehydrogenase Troponin T C-Reactive Protein Total Protein Albumin Prealbumin Triglycerides 243 H Cholesterol LDL Cholesterol Direct HDL Cholesterol PTH Intact Urine pH Urine WBC (Auto) Urine Creatinine Urine Total Protein Fluid Total Protein Vancomycin Trough Rheumatoid Factor Complement C4 Miscellaneous Test Crossmatch 09/20/16 09/20/16 09/20/16 05:40 11:52 16:50 WBC RBC Hgb Hct MCV MCH MCHC RDW Plt Count Lymph % (Auto) Towns % (Auto) Lymph # [place] # Baso # Seg Neutrophils % Seg Neuts % (Manual) Lymphocytes % (Manual) Monocytes % (Manual) Eosinophils % (Manual) Basophils % (Manual) Nucleated RBC % Seg Neutrophils # Seg Neutrophils # Man Lymphocytes # (Manual) Monocytes # (Manual) Eosinophils # (Manual) Basophils # (Manual) PT INR Fibrinogen dRVVT Confirm Interp Factor V Activity POC ABG pH POC ABG pCO2 POC ABG pO2 ABG pO2 ABG HCO3 ABG Base Excess ABG Hemoglobin Oxyhemoglobin Sodium Potassium Chloride Carbon Dioxide BUN Creatinine Glucose POC Glucose 131 H 183 H 236 H Lactic Acid Calcium Phosphorus Magnesium Direct Bilirubin AST ALT Alkaline Phosphatase Lactate Dehydrogenase Troponin T C-Reactive Protein Total Protein Albumin Prealbumin Triglycerides Cholesterol LDL Cholesterol Direct HDL Cholesterol PTH Intact Urine pH Urine WBC (Auto) Urine Creatinine Urine Total Protein Fluid Total Protein Vancomycin Trough Rheumatoid Factor Complement C4 Miscellaneous Test Crossmatch 09/20/16 09/21/16 09/21/16 23:51 03:30 04:44 WBC RBC Hgb Hct MCV MCH MCHC RDW Plt Count Lymph % (Auto) [place]s % (Auto) Lymph # [place] # Baso # Seg Neutrophils % Seg Neuts % (Manual) Lymphocytes % (Manual) Monocytes % (Manual) Eosinophils % (Manual) Basophils % (Manual) Nucleated RBC % Seg Neutrophils # Seg Neutrophils # Man Lymphocytes # (Manual) Monocytes # (Manual) Eosinophils # (Manual) Basophils # (Manual) PT INR Fibrinogen dRVVT Confirm Interp Factor V Activity POC ABG pH POC ABG pCO2 POC ABG pO2 ABG pO2 ABG HCO3 ABG Base Excess ABG Hemoglobin Oxyhemoglobin Sodium Potassium Chloride Carbon Dioxide BUN Creatinine Glucose POC Glucose 114 H 141 H Lactic Acid Calcium Phosphorus Magnesium 2.70 H Direct Bilirubin AST ALT Alkaline Phosphatase Lactate Dehydrogenase Troponin T C-Reactive Protein Total Protein Albumin Prealbumin Triglycerides Cholesterol LDL Cholesterol Direct HDL Cholesterol PTH Intact Urine pH Urine WBC (Auto) Urine Creatinine Urine Total Protein Fluid Total Protein Vancomycin Trough Rheumatoid Factor Complement C4 Miscellaneous Test Crossmatch 09/21/16 09/21/16 09/21/16 07:45 07:45 10:01 WBC 13.8 H RBC 2.94 L Hgb 7.5 L Hct 23.5 L MCV MCH 26 L MCHC RDW 21.2 H Plt Count Lymph % (Auto) 6.9 L Towns % (Auto) 9.4 H Lymph # 0.9 L [place] # 1.3 H Baso # Seg Neutrophils % 83.2 H Seg Neuts % (Manual) Lymphocytes % (Manual) Monocytes % (Manual) Eosinophils % (Manual) Basophils % (Manual) Nucleated RBC % Seg Neutrophils # 11.5 H Seg Neutrophils # Man Lymphocytes # (Manual) Monocytes # (Manual) Eosinophils # (Manual) Basophils # (Manual) PT INR Fibrinogen dRVVT Confirm Interp Factor V Activity POC ABG pH 7.308 L POC ABG pCO2 31.9 L POC ABG pO2 148 H ABG pO2 ABG HCO3 ABG Base Excess ABG Hemoglobin Oxyhemoglobin Sodium 147 H Potassium Chloride 114.2 H Carbon Dioxide 15 L BUN 120 H Creatinine 3.9 H Glucose 156 H POC Glucose Lactic Acid Calcium 8.2 L Phosphorus Magnesium Direct Bilirubin AST ALT Alkaline Phosphatase Lactate Dehydrogenase Troponin T C-Reactive Protein Total Protein Albumin Prealbumin Triglycerides Cholesterol LDL Cholesterol Direct HDL Cholesterol PTH Intact Urine pH Urine WBC (Auto) Urine Creatinine Urine Total Protein Fluid Total Protein Vancomycin Trough Rheumatoid Factor Complement C4 Miscellaneous Test Crossmatch 09/21/16 09/21/16 09/21/16 12:00 12:03 13:00 WBC RBC Hgb Hct MCV MCH MCHC RDW Plt Count Lymph % (Auto) [place]s % (Auto) Lymph # [place] # Baso # Seg Neutrophils % Seg Neuts % (Manual) Lymphocytes % (Manual) Monocytes % (Manual) Eosinophils % (Manual) Basophils % (Manual) Nucleated RBC % Seg Neutrophils # Seg Neutrophils # Man Lymphocytes # (Manual) Monocytes # (Manual) Eosinophils # (Manual) Basophils # (Manual) PT INR Fibrinogen dRVVT Confirm Interp Factor V Activity POC ABG pH POC ABG pCO2 POC ABG pO2 ABG pO2 ABG HCO3 ABG Base Excess ABG Hemoglobin Oxyhemoglobin Sodium Potassium Chloride Carbon Dioxide BUN Creatinine Glucose POC Glucose 163 H Lactic Acid Calcium Phosphorus Magnesium Direct Bilirubin AST ALT Alkaline Phosphatase Lactate Dehydrogenase Troponin T C-Reactive Protein Total Protein Albumin Prealbumin Triglycerides Cholesterol LDL Cholesterol Direct HDL Cholesterol PTH Intact Urine pH Urine WBC (Auto) Urine Creatinine 54.8 H Urine Total Protein Fluid Total Protein Vancomycin Trough 2.3 L Rheumatoid Factor Complement C4 Miscellaneous Test Crossmatch 09/21/16 09/21/16 09/22/16 16:51 23:17 06:27 WBC RBC Hgb Hct MCV MCH MCHC RDW Plt Count Lymph % (Auto) Towns % (Auto) Lymph # [place] # Baso # Seg Neutrophils % Seg Neuts % (Manual) Lymphocytes % (Manual) Monocytes % (Manual) Eosinophils % (Manual) Basophils % (Manual) Nucleated RBC % Seg Neutrophils # Seg Neutrophils # Man Lymphocytes # (Manual) Monocytes # (Manual) Eosinophils # (Manual) Basophils # (Manual) PT INR Fibrinogen dRVVT Confirm Interp Factor V Activity POC ABG pH POC ABG pCO2 POC ABG pO2 ABG pO2 ABG HCO3 ABG Base Excess ABG Hemoglobin Oxyhemoglobin Sodium Potassium Chloride Carbon Dioxide BUN Creatinine Glucose POC Glucose 206 H 114 H 115 H Lactic Acid Calcium Phosphorus Magnesium Direct Bilirubin AST ALT Alkaline Phosphatase Lactate Dehydrogenase Troponin T C-Reactive Protein Total Protein Albumin Prealbumin Triglycerides Cholesterol LDL Cholesterol Direct HDL Cholesterol PTH Intact Urine pH Urine WBC (Auto) Urine Creatinine Urine Total Protein Fluid Total Protein Vancomycin Trough Rheumatoid Factor Complement C4 Miscellaneous Test Crossmatch 09/22/16 09/22/16 09/22/16 07:50 07:50 12:00 WBC 17.8 H RBC 3.04 L Hgb 8.0 L Hct 24.7 L MCV MCH 26 L MCHC RDW 21.6 H Plt Count Lymph % (Auto) Towns % (Auto) Lymph # [place] # Baso # Seg Neutrophils % Seg Neuts % (Manual) Lymphocytes % (Manual) Monocytes % (Manual) Eosinophils % (Manual) Basophils % (Manual) Nucleated RBC % Seg Neutrophils # Seg Neutrophils # Man Lymphocytes # (Manual) Monocytes # (Manual) Eosinophils # (Manual) Basophils # (Manual) PT INR Fibrinogen dRVVT Confirm Interp Factor V Activity POC ABG pH POC ABG pCO2 POC ABG pO2 ABG pO2 ABG HCO3 ABG Base Excess ABG Hemoglobin Oxyhemoglobin Sodium 150 H Potassium Chloride 118.2 H Carbon Dioxide 14 L BUN 111 H Creatinine 3.7 H Glucose 157 H POC Glucose 183 H Lactic Acid Calcium Phosphorus Magnesium Direct Bilirubin AST ALT Alkaline Phosphatase Lactate Dehydrogenase Troponin T C-Reactive Protein Total Protein Albumin Prealbumin Triglycerides Cholesterol LDL Cholesterol Direct HDL Cholesterol PTH Intact Urine pH Urine WBC (Auto) Urine Creatinine Urine Total Protein Fluid Total Protein Vancomycin Trough Rheumatoid Factor Complement C4 Miscellaneous Test Crossmatch 09/22/16 09/22/16 09/23/16 17:29 23:10 05:00 WBC 19.2 H RBC 3.13 L Hgb 8.0 L Hct 25.2 L MCV MCH 26 L MCHC RDW 22.1 H Plt Count Lymph % (Auto) Towns % (Auto) Lymph # Towns # Baso # Seg Neutrophils % Seg Neuts % (Manual) 92.0 H Lymphocytes % (Manual) 3.0 L Monocytes % (Manual) Eosinophils % (Manual) Basophils % (Manual) Nucleated RBC % Seg Neutrophils # Seg Neutrophils # Man 17.7 H Lymphocytes # (Manual) 0.6 L Monocytes # (Manual) Eosinophils # (Manual) Basophils # (Manual) PT INR Fibrinogen dRVVT Confirm Interp Factor V Activity POC ABG pH POC ABG pCO2 POC ABG pO2 ABG pO2 ABG HCO3 ABG Base Excess ABG Hemoglobin Oxyhemoglobin Sodium Potassium Chloride Carbon Dioxide BUN Creatinine Glucose POC Glucose 197 H 169 H Lactic Acid Calcium Phosphorus Magnesium Direct Bilirubin AST ALT Alkaline Phosphatase Lactate Dehydrogenase Troponin T C-Reactive Protein Total Protein Albumin Prealbumin Triglycerides Cholesterol LDL Cholesterol Direct HDL Cholesterol PTH Intact Urine pH Urine WBC (Auto) Urine Creatinine Urine Total Protein Fluid Total Protein Vancomycin Trough Rheumatoid Factor Complement C4 Miscellaneous Test Crossmatch 09/23/16 09/23/16 09/23/16 05:00 05:00 05:10 WBC RBC Hgb Hct MCV MCH MCHC RDW Plt Count Lymph % (Auto) Towns % (Auto) Lymph # Town[place] # Baso # Seg Neutrophils % Seg Neuts % (Manual) Lymphocytes % (Manual) Monocytes % (Manual) Eosinophils % (Manual) Basophils % (Manual) Nucleated RBC % Seg Neutrophils # Seg Neutrophils # Man Lymphocytes # (Manual) Monocytes # (Manual) Eosinophils # (Manual) Basophils # (Manual) PT INR Fibrinogen dRVVT Confirm Interp Factor V Activity POC ABG pH POC ABG pCO2 POC ABG pO2 ABG pO2 ABG HCO3 ABG Base Excess ABG Hemoglobin Oxyhemoglobin Sodium 147 H Potassium 3.2 L Chloride 115.7 H Carbon Dioxide 13 L BUN 111 H Creatinine 3.8 H Glucose 194 H POC Glucose 188 H Lactic Acid Calcium 7.3 L D Phosphorus Magnesium Direct Bilirubin AST ALT Alkaline Phosphatase Lactate Dehydrogenase Troponin T C-Reactive Protein 3.20 H Total Protein Albumin Prealbumin Triglycerides Cholesterol LDL Cholesterol Direct HDL Cholesterol PTH Intact Urine pH Urine WBC (Auto) Urine Creatinine Urine Total Protein Fluid Total Protein Vancomycin Trough Rheumatoid Factor Complement C4 Miscellaneous Test Crossmatch 09/23/16 09/23/16 09/23/16 11:37 12:29 18:01 WBC RBC Hgb Hct MCV MCH MCHC RDW Plt Count Lymph % (Auto) Towns % (Auto) Lymph # Towns # Baso # Seg Neutrophils % Seg Neuts % (Manual) Lymphocytes % (Manual) Monocytes % (Manual) Eosinophils % (Manual) Basophils % (Manual) Nucleated RBC % Seg Neutrophils # Seg Neutrophils # Man Lymphocytes # (Manual) Monocytes # (Manual) Eosinophils # (Manual) Basophils # (Manual) PT INR Fibrinogen dRVVT Confirm Interp Factor V Activity POC ABG pH POC ABG pCO2 18.9 L POC ABG pO2 143 H ABG pO2 ABG HCO3 ABG Base Excess ABG Hemoglobin Oxyhemoglobin Sodium Potassium Chloride Carbon Dioxide BUN Creatinine Glucose POC Glucose 153 H 108 H Lactic Acid Calcium Phosphorus Magnesium Direct Bilirubin AST ALT Alkaline Phosphatase Lactate Dehydrogenase Troponin T C-Reactive Protein Total Protein Albumin Prealbumin Triglycerides Cholesterol LDL Cholesterol Direct HDL Cholesterol PTH Intact Urine pH Urine WBC (Auto) Urine Creatinine Urine Total Protein Fluid Total Protein Vancomycin Trough Rheumatoid Factor Complement C4 Miscellaneous Test Crossmatch 09/23/16 09/23/16 09/24/16 21:19 23:43 05:16 WBC RBC Hgb Hct MCV MCH MCHC RDW Plt Count Lymph % (Auto) Towns % (Auto) Lymph # Towns # Baso # Seg Neutrophils % Seg Neuts % (Manual) Lymphocytes % (Manual) Monocytes % (Manual) Eosinophils % (Manual) Basophils % (Manual) Nucleated RBC % Seg Neutrophils # Seg Neutrophils # Man Lymphocytes # (Manual) Monocytes # (Manual) Eosinophils # (Manual) Basophils # (Manual) PT INR Fibrinogen dRVVT Confirm Interp Factor V Activity POC ABG pH POC ABG pCO2 17.3 L POC ABG pO2 112 H ABG pO2 ABG HCO3 ABG Base Excess ABG Hemoglobin Oxyhemoglobin Sodium Potassium Chloride Carbon Dioxide BUN Creatinine Glucose POC Glucose 143 H 164 H Lactic Acid Calcium Phosphorus Magnesium Direct Bilirubin AST ALT Alkaline Phosphatase Lactate Dehydrogenase Troponin T C-Reactive Protein Total Protein Albumin Prealbumin Triglycerides Cholesterol LDL Cholesterol Direct HDL Cholesterol PTH Intact Urine pH Urine WBC (Auto) Urine Creatinine Urine Total Protein Fluid Total Protein Vancomycin Trough Rheumatoid Factor Complement C4 Miscellaneous Test Crossmatch 09/24/16 09/24/16 09/24/16 05:21 11:58 17:06 WBC RBC Hgb Hct MCV MCH MCHC RDW Plt Count Lymph % (Auto) Towns % (Auto) Lymph # Towns # Baso # Seg Neutrophils % Seg Neuts % (Manual) Lymphocytes % (Manual) Monocytes % (Manual) Eosinophils % (Manual) Basophils % (Manual) Nucleated RBC % Seg Neutrophils # Seg Neutrophils # Man Lymphocytes # (Manual) Monocytes # (Manual) Eosinophils # (Manual) Basophils # (Manual) PT INR Fibrinogen dRVVT Confirm Interp Factor V Activity POC ABG pH POC ABG pCO2 POC ABG pO2 ABG pO2 ABG HCO3 ABG Base Excess ABG Hemoglobin Oxyhemoglobin Sodium Potassium Chloride Carbon Dioxide 10 L BUN 103 H Creatinine 4.3 H Glucose 163 H POC Glucose 173 H 167 H Lactic Acid Calcium 6.5 L Phosphorus Magnesium Direct Bilirubin AST ALT Alkaline Phosphatase Lactate Dehydrogenase Troponin T C-Reactive Protein Total Protein Albumin Prealbumin Triglycerides Cholesterol LDL Cholesterol Direct HDL Cholesterol PTH Intact Urine pH Urine WBC (Auto) Urine Creatinine Urine Total Protein Fluid Total Protein Vancomycin Trough Rheumatoid Factor Complement C4 Miscellaneous Test Crossmatch 09/24/16 09/24/16 09/24/16 20:15 21:02 23:48 WBC RBC Hgb Hct MCV MCH MCHC RDW Plt Count Lymph % (Auto) Towns % (Auto) Lymph # Towns # Baso # Seg Neutrophils % Seg Neuts % (Manual) Lymphocytes % (Manual) Monocytes % (Manual) Eosinophils % (Manual) Basophils % (Manual) Nucleated RBC % Seg Neutrophils # Seg Neutrophils # Man Lymphocytes # (Manual) Monocytes # (Manual) Eosinophils # (Manual) Basophils # (Manual) PT INR Fibrinogen dRVVT Confirm Interp Factor V Activity POC ABG pH 7.288 L POC ABG pCO2 30.2 L 21.5 L POC ABG pO2 32 L 39 L ABG pO2 ABG HCO3 ABG Base Excess ABG Hemoglobin Oxyhemoglobin Sodium Potassium Chloride Carbon Dioxide BUN Creatinine Glucose POC Glucose 109 H Lactic Acid Calcium Phosphorus Magnesium Direct Bilirubin AST ALT Alkaline Phosphatase Lactate Dehydrogenase Troponin T C-Reactive Protein Total Protein Albumin Prealbumin Triglycerides Cholesterol LDL Cholesterol Direct HDL Cholesterol PTH Intact Urine pH Urine WBC (Auto) Urine Creatinine Urine Total Protein Fluid Total Protein Vancomycin Trough Rheumatoid Factor Complement C4 Miscellaneous Test Crossmatch 09/25/16 09/25/16 09/25/16 04:20 04:20 04:20 WBC RBC 2.58 L Hgb 7.0 L Hct 21.0 L MCV MCH 27 L MCHC RDW 23.8 H Plt Count Lymph % (Auto) Towns % (Auto) Lymph # Towns # Baso # Seg Neutrophils % Seg Neuts % (Manual) Lymphocytes % (Manual) 12.0 L Monocytes % (Manual) Eosinophils % (Manual) 7.0 H Basophils % (Manual) 2.0 H Nucleated RBC % Seg Neutrophils # Seg Neutrophils # Man Lymphocytes # (Manual) 0.9 L Monocytes # (Manual) Eosinophils # (Manual) 0.5 H Basophils # (Manual) PT INR Fibrinogen dRVVT Confirm Interp Factor V Activity POC ABG pH POC ABG pCO2 POC ABG pO2 ABG pO2 ABG HCO3 ABG Base Excess ABG Hemoglobin Oxyhemoglobin Sodium Potassium Chloride Carbon Dioxide 15 L BUN 72 H Creatinine 3.8 H Glucose POC Glucose Lactic Acid Calcium 6.0 L Phosphorus 4.60 H Magnesium 1.60 L Direct Bilirubin AST ALT Alkaline Phosphatase Lactate Dehydrogenase Troponin T C-Reactive Protein Total Protein Albumin Prealbumin Triglycerides Cholesterol LDL Cholesterol Direct HDL Cholesterol PTH Intact Urine pH Urine WBC (Auto) Urine Creatinine Urine Total Protein Fluid Total Protein Vancomycin Trough Rheumatoid Factor Complement C4 Miscellaneous Test Crossmatch 09/25/16 09/25/16 09/25/16 04:57 08:02 10:30 WBC RBC Hgb Hct MCV MCH MCHC RDW Plt Count Lymph % (Auto) Towns % (Auto) Lymph # [place] # Baso # Seg Neutrophils % Seg Neuts % (Manual) Lymphocytes % (Manual) Monocytes % (Manual) Eosinophils % (Manual) Basophils % (Manual) Nucleated RBC % Seg Neutrophils # Seg Neutrophils # Man Lymphocytes # (Manual) Monocytes # (Manual) Eosinophils # (Manual) Basophils # (Manual) PT INR Fibrinogen dRVVT Confirm Interp Factor V Activity POC ABG pH POC ABG pCO2 24.7 L POC ABG pO2 152 H ABG pO2 ABG HCO3 ABG Base Excess ABG Hemoglobin Oxyhemoglobin Sodium Potassium Chloride Carbon Dioxide BUN Creatinine Glucose POC Glucose 113 H Lactic Acid Calcium Phosphorus Magnesium Direct Bilirubin AST ALT Alkaline Phosphatase Lactate Dehydrogenase Troponin T C-Reactive Protein Total Protein Albumin Prealbumin Triglycerides Cholesterol LDL Cholesterol Direct HDL Cholesterol PTH Intact Urine pH Urine WBC (Auto) Urine Creatinine Urine Total Protein Fluid Total Protein Vancomycin Trough Rheumatoid Factor Complement C4 Miscellaneous Test Crossmatch See Detail 09/25/16 09/25/16 09/25/16 12:05 17:44 23:47 WBC RBC Hgb Hct MCV MCH MCHC RDW Plt Count Lymph % (Auto) Towns % (Auto) Lymph # [place] # Baso # Seg Neutrophils % Seg Neuts % (Manual) Lymphocytes % (Manual) Monocytes % (Manual) Eosinophils % (Manual) Basophils % (Manual) Nucleated RBC % Seg Neutrophils # Seg Neutrophils # Man Lymphocytes # (Manual) Monocytes # (Manual) Eosinophils # (Manual) Basophils # (Manual) PT INR Fibrinogen dRVVT Confirm Interp Factor V Activity POC ABG pH POC ABG pCO2 POC ABG pO2 ABG pO2 ABG HCO3 ABG Base Excess ABG Hemoglobin Oxyhemoglobin Sodium Potassium Chloride Carbon Dioxide BUN Creatinine Glucose POC Glucose 117 H 119 H 150 H Lactic Acid Calcium Phosphorus Magnesium Direct Bilirubin AST ALT Alkaline Phosphatase Lactate Dehydrogenase Troponin T C-Reactive Protein Total Protein Albumin Prealbumin Triglycerides Cholesterol LDL Cholesterol Direct HDL Cholesterol PTH Intact Urine pH Urine WBC (Auto) Urine Creatinine Urine Total Protein Fluid Total Protein Vancomycin Trough Rheumatoid Factor Complement C4 Miscellaneous Test Crossmatch 09/26/16 09/26/16 09/26/16 04:25 04:25 04:25 WBC RBC 2.65 L Hgb 7.4 L Hct 21.6 L MCV MCH MCHC RDW 22.5 H Plt Count Lymph % (Auto) Towns % (Auto) Lymph # [place] # Baso # Seg Neutrophils % Seg Neuts % (Manual) Lymphocytes % (Manual) 6.0 L Monocytes % (Manual) Eosinophils % (Manual) 11.0 H Basophils % (Manual) Nucleated RBC % Seg Neutrophils # Seg Neutrophils # Man Lymphocytes # (Manual) 0.4 L Monocytes # (Manual) Eosinophils # (Manual) 0.6 H Basophils # (Manual) PT INR Fibrinogen dRVVT Confirm Interp Factor V Activity POC ABG pH POC ABG pCO2 POC ABG pO2 ABG pO2 ABG HCO3 ABG Base Excess ABG Hemoglobin Oxyhemoglobin Sodium Potassium Chloride 97.0 L Carbon Dioxide 19 L BUN 43 H Creatinine 2.6 H Glucose 130 H POC Glucose Lactic Acid 4.40 H* Calcium 6.7 L Phosphorus Magnesium Direct Bilirubin AST ALT Alkaline Phosphatase Lactate Dehydrogenase Troponin T C-Reactive Protein Total Protein Albumin Prealbumin Triglycerides Cholesterol LDL Cholesterol Direct HDL Cholesterol PTH Intact Urine pH Urine WBC (Auto) Urine Creatinine Urine Total Protein Fluid Total Protein Vancomycin Trough Rheumatoid Factor Complement C4 Miscellaneous Test Crossmatch 09/26/16 09/26/16 09/26/16 05:20 11:44 12:12 WBC RBC Hgb Hct MCV MCH MCHC RDW Plt Count Lymph % (Auto) Towns % (Auto) Lymph # [place] # Baso # Seg Neutrophils % Seg Neuts % (Manual) Lymphocytes % (Manual) Monocytes % (Manual) Eosinophils % (Manual) Basophils % (Manual) Nucleated RBC % Seg Neutrophils # Seg Neutrophils # Man Lymphocytes # (Manual) Monocytes # (Manual) Eosinophils # (Manual) Basophils # (Manual) PT INR Fibrinogen dRVVT Confirm Interp Factor V Activity POC ABG pH POC ABG pCO2 27.0 L POC ABG pO2 69 L ABG pO2 ABG HCO3 ABG Base Excess ABG Hemoglobin Oxyhemoglobin Sodium Potassium Chloride Carbon Dioxide BUN Creatinine Glucose POC Glucose 121 H 128 H Lactic Acid Calcium Phosphorus Magnesium Direct Bilirubin AST ALT Alkaline Phosphatase Lactate Dehydrogenase Troponin T C-Reactive Protein Total Protein Albumin Prealbumin Triglycerides Cholesterol LDL Cholesterol Direct HDL Cholesterol PTH Intact Urine pH Urine WBC (Auto) Urine Creatinine Urine Total Protein Fluid Total Protein Vancomycin Trough Rheumatoid Factor Complement C4 Miscellaneous Test Crossmatch 09/26/16 09/26/16 09/27/16 18:31 23:40 08:20 WBC RBC Hgb Hct MCV MCH MCHC RDW Plt Count Lymph % (Auto) Towns % (Auto) Lymph # [place] # Baso # Seg Neutrophils % Seg Neuts % (Manual) Lymphocytes % (Manual) Monocytes % (Manual) Eosinophils % (Manual) Basophils % (Manual) Nucleated RBC % Seg Neutrophils # Seg Neutrophils # Man Lymphocytes # (Manual) Monocytes # (Manual) Eosinophils # (Manual) Basophils # (Manual) PT INR Fibrinogen dRVVT Confirm Interp Factor V Activity POC ABG pH POC ABG pCO2 POC ABG pO2 ABG pO2 ABG HCO3 ABG Base Excess ABG Hemoglobin Oxyhemoglobin Sodium Potassium Chloride Carbon Dioxide BUN Creatinine Glucose POC Glucose 120 H 133 H Lactic Acid 4.10 H* Calcium Phosphorus Magnesium Direct Bilirubin AST ALT Alkaline Phosphatase Lactate Dehydrogenase Troponin T C-Reactive Protein Total Protein Albumin Prealbumin Triglycerides Cholesterol LDL Cholesterol Direct HDL Cholesterol PTH Intact Urine pH Urine WBC (Auto) Urine Creatinine Urine Total Protein Fluid Total Protein Vancomycin Trough Rheumatoid Factor Complement C4 Miscellaneous Test Crossmatch 09/27/16 09/27/16 09/27/16 11:23 15:00 18:15 WBC RBC Hgb Hct MCV MCH MCHC RDW Plt Count Lymph % (Auto) Towns % (Auto) Lymph # [place] # Baso # Seg Neutrophils % Seg Neuts % (Manual) Lymphocytes % (Manual) Monocytes % (Manual) Eosinophils % (Manual) Basophils % (Manual) Nucleated RBC % Seg Neutrophils # Seg Neutrophils # Man Lymphocytes # (Manual) Monocytes # (Manual) Eosinophils # (Manual) Basophils # (Manual) PT INR Fibrinogen dRVVT Confirm Interp Factor V Activity POC ABG pH 7.459 H POC ABG pCO2 27.1 L POC ABG pO2 140 H ABG pO2 ABG HCO3 ABG Base Excess ABG Hemoglobin Oxyhemoglobin Sodium Potassium Chloride Carbon Dioxide BUN Creatinine Glucose POC Glucose 114 H 127 H Lactic Acid Calcium Phosphorus Magnesium Direct Bilirubin AST ALT Alkaline Phosphatase Lactate Dehydrogenase Troponin T C-Reactive Protein Total Protein Albumin Prealbumin Triglycerides Cholesterol LDL Cholesterol Direct HDL Cholesterol PTH Intact Urine pH Urine WBC (Auto) Urine Creatinine Urine Total Protein Fluid Total Protein Vancomycin Trough Rheumatoid Factor Complement C4 Miscellaneous Test Crossmatch 09/27/16 09/27/16 09/28/16 Unknown Unknown 03:45 WBC RBC 2.49 L Hgb 6.8 L Hct 20.7 L MCV MCH 27 L MCHC RDW 22.1 H Plt Count Lymph % (Auto) Towns % (Auto) Lymph # [place] # Baso # Seg Neutrophils % Seg Neuts % (Manual) 32.0 L Lymphocytes % (Manual) 12.0 L Monocytes % (Manual) 11.0 H Eosinophils % (Manual) 10.0 H Basophils % (Manual) Nucleated RBC % Seg Neutrophils # Seg Neutrophils # Man Lymphocytes # (Manual) 1.0 L Monocytes # (Manual) 0.9 H Eosinophils # (Manual) 0.8 H Basophils # (Manual) PT INR Fibrinogen dRVVT Confirm Interp Factor V Activity POC ABG pH POC ABG pCO2 POC ABG pO2 ABG pO2 ABG HCO3 ABG Base Excess ABG Hemoglobin Oxyhemoglobin Sodium 135 L 135 L Potassium 3.5 L Chloride 93.6 L 94.4 L Carbon Dioxide 17 L 21 L BUN 45 H 28 H Creatinine 3.3 H 2.5 H Glucose 106 H POC Glucose Lactic Acid Calcium 7.3 L 7.1 L Phosphorus Magnesium Direct Bilirubin AST ALT Alkaline Phosphatase Lactate Dehydrogenase Troponin T C-Reactive Protein Total Protein Albumin Prealbumin Triglycerides Cholesterol LDL Cholesterol Direct HDL Cholesterol PTH Intact Urine pH Urine WBC (Auto) Urine Creatinine Urine Total Protein Fluid Total Protein Vancomycin Trough Rheumatoid Factor Complement C4 Miscellaneous Test Crossmatch 09/28/16 09/28/16 09/28/16 03:45 07:25 11:58 WBC 13.3 H RBC 3.01 L Hgb 8.4 L Hct 25.0 L MCV MCH MCHC RDW 20.5 H Plt Count 128 L Lymph % (Auto) Towns % (Auto) Lymph # [place] # Baso # Seg Neutrophils % Seg Neuts % (Manual) Lymphocytes % (Manual) 7.0 L Monocytes % (Manual) Eosinophils % (Manual) 6.0 H Basophils % (Manual) Nucleated RBC % Seg Neutrophils # Seg Neutrophils # Man Lymphocytes # (Manual) 0.9 L Monocytes # (Manual) Eosinophils # (Manual) 0.8 H Basophils # (Manual) PT INR Fibrinogen dRVVT Confirm Interp Factor V Activity POC ABG pH POC ABG pCO2 POC ABG pO2 ABG pO2 ABG HCO3 ABG Base Excess ABG Hemoglobin Oxyhemoglobin Sodium Potassium Chloride Carbon Dioxide BUN Creatinine Glucose POC Glucose 121 H Lactic Acid 4.50 H* Calcium Phosphorus Magnesium Direct Bilirubin AST ALT Alkaline Phosphatase Lactate Dehydrogenase Troponin T C-Reactive Protein Total Protein Albumin Prealbumin Triglycerides Cholesterol LDL Cholesterol Direct HDL Cholesterol PTH Intact Urine pH Urine WBC (Auto) Urine Creatinine Urine Total Protein Fluid Total Protein Vancomycin Trough Rheumatoid Factor Complement C4 Miscellaneous Test Crossmatch 09/29/16 09/29/16 09/29/16 06:45 06:45 06:45 WBC 14.9 H RBC 2.74 L Hgb 7.6 L Hct 23.2 L MCV MCH MCHC RDW 20.5 H Plt Count 81 L Lymph % (Auto) Towns % (Auto) Lymph # [place] # Baso # Seg Neutrophils % Seg Neuts % (Manual) 81.0 H Lymphocytes % (Manual) 4.0 L Monocytes % (Manual) Eosinophils % (Manual) Basophils % (Manual) Nucleated RBC % Seg Neutrophils # Seg Neutrophils # Man 12.1 H Lymphocytes # (Manual) 0.6 L Monocytes # (Manual) Eosinophils # (Manual) Basophils # (Manual) PT INR Fibrinogen dRVVT Confirm Interp Factor V Activity POC ABG pH POC ABG pCO2 POC ABG pO2 ABG pO2 ABG HCO3 ABG Base Excess ABG Hemoglobin Oxyhemoglobin Sodium 133 L Potassium 3.4 L Chloride 92.5 L Carbon Dioxide 21 L BUN 33 H Creatinine 3.0 H Glucose POC Glucose Lactic Acid Calcium 6.6 L Phosphorus Magnesium 1.40 L Direct Bilirubin 0.9 H AST ALT Alkaline Phosphatase Lactate Dehydrogenase Troponin T C-Reactive Protein Total Protein 4.3 L Albumin 1.3 L Prealbumin Triglycerides Cholesterol LDL Cholesterol Direct HDL Cholesterol PTH Intact Urine pH Urine WBC (Auto) Urine Creatinine Urine Total Protein Fluid Total Protein Vancomycin Trough Rheumatoid Factor Complement C4 Miscellaneous Test Crossmatch 09/29/16 09/29/16 09/30/16 17:52 20:12 00:07 WBC RBC Hgb Hct MCV MCH MCHC RDW Plt Count Lymph % (Auto) Towns % (Auto) Lymph # [place] # Baso # Seg Neutrophils % Seg Neuts % (Manual) Lymphocytes % (Manual) Monocytes % (Manual) Eosinophils % (Manual) Basophils % (Manual) Nucleated RBC % Seg Neutrophils # Seg Neutrophils # Man Lymphocytes # (Manual) Monocytes # (Manual) Eosinophils # (Manual) Basophils # (Manual) PT INR Fibrinogen dRVVT Confirm Interp Factor V Activity POC ABG pH POC ABG pCO2 POC ABG pO2 ABG pO2 ABG HCO3 ABG Base Excess ABG Hemoglobin Oxyhemoglobin Sodium Potassium Chloride Carbon Dioxide BUN Creatinine Glucose POC Glucose 50 L 51 L Lactic Acid Calcium Phosphorus Magnesium Direct Bilirubin AST ALT Alkaline Phosphatase Lactate Dehydrogenase Troponin T 0.204 H* C-Reactive Protein Total Protein Albumin Prealbumin Triglycerides Cholesterol 31 L LDL Cholesterol Direct 4 L HDL Cholesterol 3 L PTH Intact Urine pH Urine WBC (Auto) Urine Creatinine Urine Total Protein Fluid Total Protein Vancomycin Trough Rheumatoid Factor Complement C4 Miscellaneous Test Crossmatch 09/30/16 09/30/16 09/30/16 01:30 05:15 06:10 WBC RBC Hgb Hct MCV MCH MCHC RDW Plt Count Lymph % (Auto) [place]s % (Auto) Lymph # [place] # Baso # Seg Neutrophils % Seg Neuts % (Manual) Lymphocytes % (Manual) Monocytes % (Manual) Eosinophils % (Manual) Basophils % (Manual) Nucleated RBC % Seg Neutrophils # Seg Neutrophils # Man Lymphocytes # (Manual) Monocytes # (Manual) Eosinophils # (Manual) Basophils # (Manual) PT INR Fibrinogen dRVVT Confirm Interp Factor V Activity POC ABG pH POC ABG pCO2 POC ABG pO2 ABG pO2 ABG HCO3 ABG Base Excess ABG Hemoglobin Oxyhemoglobin Sodium 133 L Potassium 3.2 L Chloride 93.2 L Carbon Dioxide 19 L BUN 36 H Creatinine 3.2 H Glucose 104 H POC Glucose 167 H 146 H Lactic Acid Calcium 6.4 L Phosphorus Magnesium 1.60 L Direct Bilirubin AST ALT Alkaline Phosphatase Lactate Dehydrogenase Troponin T C-Reactive Protein Total Protein Albumin Prealbumin Triglycerides Cholesterol LDL Cholesterol Direct HDL Cholesterol PTH Intact Urine pH Urine WBC (Auto) Urine Creatinine Urine Total Protein Fluid Total Protein Vancomycin Trough Rheumatoid Factor Complement C4 Miscellaneous Test Crossmatch 09/30/16 09/30/16 09/30/16 11:26 13:39 18:38 WBC RBC Hgb Hct MCV MCH MCHC RDW Plt Count Lymph % (Auto) Towns % (Auto) Lymph # [place] # Baso # Seg Neutrophils % Seg Neuts % (Manual) Lymphocytes % (Manual) Monocytes % (Manual) Eosinophils % (Manual) Basophils % (Manual) Nucleated RBC % Seg Neutrophils # Seg Neutrophils # Man Lymphocytes # (Manual) Monocytes # (Manual) Eosinophils # (Manual) Basophils # (Manual) PT INR Fibrinogen dRVVT Confirm Interp Factor V Activity POC ABG pH 7.479 H POC ABG pCO2 29.8 L POC ABG pO2 117 H ABG pO2 ABG HCO3 ABG Base Excess ABG Hemoglobin Oxyhemoglobin Sodium Potassium Chloride Carbon Dioxide BUN Creatinine Glucose POC Glucose 140 H 122 H Lactic Acid Calcium Phosphorus Magnesium Direct Bilirubin AST ALT Alkaline Phosphatase Lactate Dehydrogenase Troponin T C-Reactive Protein Total Protein Albumin Prealbumin Triglycerides Cholesterol LDL Cholesterol Direct HDL Cholesterol PTH Intact Urine pH Urine WBC (Auto) Urine Creatinine Urine Total Protein Fluid Total Protein Vancomycin Trough Rheumatoid Factor Complement C4 Miscellaneous Test Crossmatch 10/01/16 10/01/16 10/01/16 06:00 06:00 12:37 WBC 12.6 H RBC 2.75 L Hgb 7.3 L Hct 23.3 L MCV MCH 27 L MCHC RDW 20.6 H Plt Count 72 L Lymph % (Auto) Towns % (Auto) Lymph # [place] # Baso # Seg Neutrophils % Seg Neuts % (Manual) 31.0 L Lymphocytes % (Manual) 8.0 L Monocytes % (Manual) Eosinophils % (Manual) Basophils % (Manual) Nucleated RBC % 3.0 H Seg Neutrophils # Seg Neutrophils # Man Lymphocytes # (Manual) 1.0 L Monocytes # (Manual) Eosinophils # (Manual) Basophils # (Manual) PT INR Fibrinogen dRVVT Confirm Interp Factor V Activity POC ABG pH POC ABG pCO2 POC ABG pO2 ABG pO2 ABG HCO3 ABG Base Excess ABG Hemoglobin Oxyhemoglobin Sodium 127 L Potassium Chloride 86.8 L Carbon Dioxide 20 L BUN 42 H Creatinine 3.5 H Glucose POC Glucose 65 L Lactic Acid Calcium 7.0 L Phosphorus Magnesium Direct Bilirubin AST ALT Alkaline Phosphatase Lactate Dehydrogenase Troponin T C-Reactive Protein Total Protein Albumin Prealbumin Triglycerides Cholesterol LDL Cholesterol Direct HDL Cholesterol PTH Intact Urine pH Urine WBC (Auto) Urine Creatinine Urine Total Protein Fluid Total Protein Vancomycin Trough Rheumatoid Factor Complement C4 Miscellaneous Test Crossmatch 10/01/16 10/01/16 10/02/16 17:39 23:32 00:59 WBC RBC Hgb Hct MCV MCH MCHC RDW Plt Count Lymph % (Auto) Towns % (Auto) Lymph # [place] # Baso # Seg Neutrophils % Seg Neuts % (Manual) Lymphocytes % (Manual) Monocytes % (Manual) Eosinophils % (Manual) Basophils % (Manual) Nucleated RBC % Seg Neutrophils # Seg Neutrophils # Man Lymphocytes # (Manual) Monocytes # (Manual) Eosinophils # (Manual) Basophils # (Manual) PT INR Fibrinogen dRVVT Confirm Interp Factor V Activity POC ABG pH POC ABG pCO2 POC ABG pO2 ABG pO2 ABG HCO3 ABG Base Excess ABG Hemoglobin Oxyhemoglobin Sodium Potassium Chloride Carbon Dioxide BUN Creatinine Glucose POC Glucose 107 H 52 L 145 H Lactic Acid Calcium Phosphorus Magnesium Direct Bilirubin AST ALT Alkaline Phosphatase Lactate Dehydrogenase Troponin T C-Reactive Protein Total Protein Albumin Prealbumin Triglycerides Cholesterol LDL Cholesterol Direct HDL Cholesterol PTH Intact Urine pH Urine WBC (Auto) Urine Creatinine Urine Total Protein Fluid Total Protein Vancomycin Trough Rheumatoid Factor Complement C4 Miscellaneous Test Crossmatch 10/02/16 10/02/1617 10:30 10:50 10:50 WBC 14.7 H RBC 2.76 L Hgb 7.4 L Hct 23.6 L MCV MCH 27 L MCHC RDW 20.2 H Plt Count 79 L Lymph % (Auto) Towns % (Auto) Lymph # [place] # Baso # Seg Neutrophils % Seg Neuts % (Manual) 86.0 H Lymphocytes % (Manual) 6.0 L Monocytes % (Manual) Eosinophils % (Manual) Basophils % (Manual) Nucleated RBC % Seg Neutrophils # Seg Neutrophils # Man 12.6 H Lymphocytes # (Manual) 0.9 L Monocytes # (Manual) Eosinophils # (Manual) Basophils # (Manual) PT INR Fibrinogen dRVVT Confirm Interp Factor V Activity POC ABG pH 7.486 H POC ABG pCO2 30.1 L POC ABG pO2 108 H ABG pO2 ABG HCO3 ABG Base Excess ABG Hemoglobin Oxyhemoglobin Sodium 131 L Potassium 3.4 L Chloride 89.9 L Carbon Dioxide BUN 26 H Creatinine 2.6 H Glucose POC Glucose Lactic Acid Calcium 7.0 L Phosphorus Magnesium Direct Bilirubin AST ALT Alkaline Phosphatase Lactate Dehydrogenase Troponin T C-Reactive Protein Total Protein Albumin Prealbumin Triglycerides Cholesterol LDL Cholesterol Direct HDL Cholesterol PTH Intact Urine pH Urine WBC (Auto) Urine Creatinine Urine Total Protein Fluid Total Protein Vancomycin Trough Rheumatoid Factor Complement C4 Miscellaneous Test Crossmatch 10/02/16 10/03/16 10/03/16 23:45 00:45 05:10 WBC 12.9 H RBC 2.77 L Hgb 7.6 L Hct 23.7 L MCV MCH 27 L MCHC RDW 19.7 H Plt Count 89 L Lymph % (Auto) Towns % (Auto) Lymph # [place]s # Baso # Seg Neutrophils % Seg Neuts % (Manual) Lymphocytes % (Manual) 8.0 L Monocytes % (Manual) Eosinophils % (Manual) Basophils % (Manual) Nucleated RBC % Seg Neutrophils # 11.9 H Seg Neutrophils # Man Lymphocytes # (Manual) 1.0 L Monocytes # (Manual) Eosinophils # (Manual) Basophils # (Manual) PT INR Fibrinogen dRVVT Confirm Interp Factor V Activity POC ABG pH POC ABG pCO2 POC ABG pO2 ABG pO2 ABG HCO3 ABG Base Excess ABG Hemoglobin Oxyhemoglobin Sodium Potassium Chloride Carbon Dioxide BUN Creatinine Glucose POC Glucose 55 L 199 H Lactic Acid Calcium Phosphorus Magnesium Direct Bilirubin AST ALT Alkaline Phosphatase Lactate Dehydrogenase Troponin T C-Reactive Protein Total Protein Albumin Prealbumin Triglycerides Cholesterol LDL Cholesterol Direct HDL Cholesterol PTH Intact Urine pH Urine WBC (Auto) Urine Creatinine Urine Total Protein Fluid Total Protein Vancomycin Trough Rheumatoid Factor Complement C4 Miscellaneous Test Crossmatch 10/03/16 10/03/16 10/03/16 05:10 12:14 13:18 WBC RBC Hgb Hct MCV MCH MCHC RDW Plt Count Lymph % (Auto) Towns % (Auto) Lymph # Towns # Baso # Seg Neutrophils % Seg Neuts % (Manual) Lymphocytes % (Manual) Monocytes % (Manual) Eosinophils % (Manual) Basophils % (Manual) Nucleated RBC % Seg Neutrophils # Seg Neutrophils # Man Lymphocytes # (Manual) Monocytes # (Manual) Eosinophils # (Manual) Basophils # (Manual) PT INR Fibrinogen dRVVT Confirm Interp Factor V Activity POC ABG pH POC ABG pCO2 POC ABG pO2 ABG pO2 ABG HCO3 ABG Base Excess ABG Hemoglobin Oxyhemoglobin Sodium 129 L Potassium 3.3 L Chloride 88.8 L Carbon Dioxide 20 L BUN 29 H Creatinine 2.8 H Glucose POC Glucose 68 L 127 H Lactic Acid Calcium 7.2 L Phosphorus Magnesium Direct Bilirubin AST ALT Alkaline Phosphatase Lactate Dehydrogenase Troponin T C-Reactive Protein Total Protein Albumin Prealbumin Triglycerides Cholesterol LDL Cholesterol Direct HDL Cholesterol PTH Intact Urine pH Urine WBC (Auto) Urine Creatinine Urine Total Protein Fluid Total Protein Vancomycin Trough Rheumatoid Factor Complement C4 Miscellaneous Test Crossmatch 10/03/16 10/03/16 10/03/16 14:42 18:21 19:09 WBC RBC Hgb Hct MCV MCH MCHC RDW Plt Count Lymph % (Auto) Towns % (Auto) Lymph # Towns # Baso # Seg Neutrophils % Seg Neuts % (Manual) Lymphocytes % (Manual) Monocytes % (Manual) Eosinophils % (Manual) Basophils % (Manual) Nucleated RBC % Seg Neutrophils # Seg Neutrophils # Man Lymphocytes # (Manual) Monocytes # (Manual) Eosinophils # (Manual) Basophils # (Manual) PT INR Fibrinogen dRVVT Confirm Interp Factor V Activity POC ABG pH 7.499 H POC ABG pCO2 28.4 L POC ABG pO2 44 L ABG pO2 ABG HCO3 ABG Base Excess ABG Hemoglobin Oxyhemoglobin Sodium Potassium Chloride Carbon Dioxide BUN Creatinine Glucose POC Glucose 64 L 205 H Lactic Acid Calcium Phosphorus Magnesium Direct Bilirubin AST ALT Alkaline Phosphatase Lactate Dehydrogenase Troponin T C-Reactive Protein Total Protein Albumin Prealbumin Triglycerides Cholesterol LDL Cholesterol Direct HDL Cholesterol PTH Intact Urine pH Urine WBC (Auto) Urine Creatinine Urine Total Protein Fluid Total Protein Vancomycin Trough Rheumatoid Factor Complement C4 Miscellaneous Test Crossmatch 10/03/16 10/04/16 10/04/16 23:33 04:18 06:30 WBC RBC 2.54 L Hgb 7.1 L Hct 21.7 L MCV MCH MCHC RDW 19.5 H Plt Count 76 L Lymph % (Auto) Towns % (Auto) Lymph # Towns # Baso # Seg Neutrophils % Seg Neuts % (Manual) 88.0 H Lymphocytes % (Manual) 6.0 L Monocytes % (Manual) Eosinophils % (Manual) Basophils % (Manual) Nucleated RBC % Seg Neutrophils # Seg Neutrophils # Man 8.8 H Lymphocytes # (Manual) 0.6 L Monocytes # (Manual) Eosinophils # (Manual) Basophils # (Manual) PT INR Fibrinogen dRVVT Confirm Interp Factor V Activity POC ABG pH 7.461 H POC ABG pCO2 33.6 L POC ABG pO2 211 H ABG pO2 ABG HCO3 ABG Base Excess ABG Hemoglobin Oxyhemoglobin Sodium Potassium Chloride Carbon Dioxide BUN Creatinine Glucose POC Glucose 136 H Lactic Acid Calcium Phosphorus Magnesium Direct Bilirubin AST ALT Alkaline Phosphatase Lactate Dehydrogenase Troponin T C-Reactive Protein Total Protein Albumin Prealbumin Triglycerides Cholesterol LDL Cholesterol Direct HDL Cholesterol PTH Intact Urine pH Urine WBC (Auto) Urine Creatinine Urine Total Protein Fluid Total Protein Vancomycin Trough Rheumatoid Factor Complement C4 Miscellaneous Test Crossmatch 10/04/16 10/04/16 10/04/16 06:30 11:45 17:54 WBC RBC Hgb Hct MCV MCH MCHC RDW Plt Count Lymph % (Auto) Towns % (Auto) Lymph # Towns # Baso # Seg Neutrophils % Seg Neuts % (Manual) Lymphocytes % (Manual) Monocytes % (Manual) Eosinophils % (Manual) Basophils % (Manual) Nucleated RBC % Seg Neutrophils # Seg Neutrophils # Man Lymphocytes # (Manual) Monocytes # (Manual) Eosinophils # (Manual) Basophils # (Manual) PT INR Fibrinogen dRVVT Confirm Interp Factor V Activity POC ABG pH POC ABG pCO2 POC ABG pO2 ABG pO2 ABG HCO3 ABG Base Excess ABG Hemoglobin Oxyhemoglobin Sodium 128 L Potassium Chloride 87.4 L Carbon Dioxide 20 L BUN 34 H Creatinine 2.9 H Glucose 127 H POC Glucose 158 H 160 H Lactic Acid Calcium 7.4 L Phosphorus Magnesium Direct Bilirubin AST ALT Alkaline Phosphatase Lactate Dehydrogenase Troponin T C-Reactive Protein Total Protein Albumin Prealbumin Triglycerides Cholesterol LDL Cholesterol Direct HDL Cholesterol PTH Intact Urine pH Urine WBC (Auto) Urine Creatinine Urine Total Protein Fluid Total Protein Vancomycin Trough Rheumatoid Factor Complement C4 Miscellaneous Test Crossmatch 10/04/16 10/05/16 10/05/16 23:25 04:30 05:00 WBC RBC 2.64 L Hgb 7.5 L Hct 22.6 L MCV MCH MCHC RDW 19.3 H Plt Count 80 L Lymph % (Auto) Towns % (Auto) Lymph # Towns # Baso # Seg Neutrophils % Seg Neuts % (Manual) Lymphocytes % (Manual) 12.0 L Monocytes % (Manual) Eosinophils % (Manual) Basophils % (Manual) Nucleated RBC % Seg Neutrophils # Seg Neutrophils # Man Lymphocytes # (Manual) Monocytes # (Manual) Eosinophils # (Manual) Basophils # (Manual) PT INR Fibrinogen dRVVT Confirm Interp Factor V Activity POC ABG pH 7.475 H POC ABG pCO2 33.3 L POC ABG pO2 140 H ABG pO2 ABG HCO3 ABG Base Excess ABG Hemoglobin Oxyhemoglobin Sodium Potassium Chloride Carbon Dioxide BUN Creatinine Glucose POC Glucose 141 H Lactic Acid Calcium Phosphorus Magnesium Direct Bilirubin AST ALT Alkaline Phosphatase Lactate Dehydrogenase Troponin T C-Reactive Protein Total Protein Albumin Prealbumin Triglycerides Cholesterol LDL Cholesterol Direct HDL Cholesterol PTH Intact Urine pH Urine WBC (Auto) Urine Creatinine Urine Total Protein Fluid Total Protein Vancomycin Trough Rheumatoid Factor Complement C4 Miscellaneous Test Crossmatch 10/05/16 10/05/16 10/05/16 05:00 05:09 12:58 WBC RBC Hgb Hct MCV MCH MCHC RDW Plt Count Lymph % (Auto) Towns % (Auto) Lymph # Towns # Baso # Seg Neutrophils % Seg Neuts % (Manual) Lymphocytes % (Manual) Monocytes % (Manual) Eosinophils % (Manual) Basophils % (Manual) Nucleated RBC % Seg Neutrophils # Seg Neutrophils # Man Lymphocytes # (Manual) Monocytes # (Manual) Eosinophils # (Manual) Basophils # (Manual) PT INR Fibrinogen dRVVT Confirm Interp Factor V Activity POC ABG pH POC ABG pCO2 POC ABG pO2 ABG pO2 ABG HCO3 ABG Base Excess ABG Hemoglobin Oxyhemoglobin Sodium 131 L Potassium Chloride 94.0 L Carbon Dioxide 20 L BUN 22 H Creatinine 2.0 H Glucose 123 H POC Glucose 166 H 179 H Lactic Acid Calcium 7.7 L Phosphorus 2.20 L D Magnesium Direct Bilirubin AST ALT Alkaline Phosphatase Lactate Dehydrogenase Troponin T C-Reactive Protein Total Protein Albumin Prealbumin Triglycerides Cholesterol LDL Cholesterol Direct HDL Cholesterol PTH Intact Urine pH Urine WBC (Auto) Urine Creatinine Urine Total Protein Fluid Total Protein Vancomycin Trough Rheumatoid Factor Complement C4 Miscellaneous Test Crossmatch 10/05/16 10/05/16 10/05/16 15:50 18:53 23:12 WBC RBC Hgb Hct MCV MCH MCHC RDW Plt Count Lymph % (Auto) Towns % (Auto) Lymph # Towns # Baso # Seg Neutrophils % Seg Neuts % (Manual) Lymphocytes % (Manual) Monocytes % (Manual) Eosinophils % (Manual) Basophils % (Manual) Nucleated RBC % Seg Neutrophils # Seg Neutrophils # Man Lymphocytes # (Manual) Monocytes # (Manual) Eosinophils # (Manual) Basophils # (Manual) PT INR Fibrinogen dRVVT Confirm Interp Factor V Activity POC ABG pH POC ABG pCO2 POC ABG pO2 ABG pO2 ABG HCO3 ABG Base Excess ABG Hemoglobin Oxyhemoglobin Sodium Potassium Chloride Carbon Dioxide BUN Creatinine Glucose POC Glucose 150 H 164 H Lactic Acid Calcium Phosphorus Magnesium Direct Bilirubin AST ALT Alkaline Phosphatase Lactate Dehydrogenase Troponin T C-Reactive Protein Total Protein Albumin Prealbumin Triglycerides Cholesterol LDL Cholesterol Direct HDL Cholesterol PTH Intact Urine pH Urine WBC (Auto) Urine Creatinine Urine Total Protein Fluid Total Protein Vancomycin Trough Rheumatoid Factor Complement C4 Miscellaneous Test Crossmatch See Detail 10/06/16 10/06/16 10/06/16 03:50 03:50 04:53 WBC RBC 3.00 L Hgb 8.6 L Hct 25.8 L MCV MCH MCHC RDW 17.9 H Plt Count 65 L Lymph % (Auto) Towns % (Auto) Lymph # Towns # Baso # Seg Neutrophils % Seg Neuts % (Manual) 30.0 L Lymphocytes % (Manual) 5.0 L Monocytes % (Manual) Eosinophils % (Manual) Basophils % (Manual) Nucleated RBC % Seg Neutrophils # Seg Neutrophils # Man Lymphocytes # (Manual) 0.4 L Monocytes # (Manual) Eosinophils # (Manual) Basophils # (Manual) PT INR Fibrinogen dRVVT Confirm Interp Factor V Activity POC ABG pH 7.310 L POC ABG pCO2 49.0 H POC ABG pO2 ABG pO2 ABG HCO3 ABG Base Excess ABG Hemoglobin Oxyhemoglobin Sodium 133 L Potassium Chloride 95.9 L Carbon Dioxide BUN 26 H Creatinine 2.0 H Glucose 116 H POC Glucose Lactic Acid Calcium 7.8 L Phosphorus Magnesium Direct Bilirubin AST ALT Alkaline Phosphatase Lactate Dehydrogenase Troponin T C-Reactive Protein Total Protein Albumin Prealbumin Triglycerides Cholesterol LDL Cholesterol Direct HDL Cholesterol PTH Intact Urine pH Urine WBC (Auto) Urine Creatinine Urine Total Protein Fluid Total Protein Vancomycin Trough Rheumatoid Factor Complement C4 Miscellaneous Test Crossmatch 10/06/16 10/06/16 10/06/16 05:23 11:52 18:34 WBC RBC Hgb Hct MCV MCH MCHC RDW Plt Count Lymph % (Auto) Towns % (Auto) Lymph # Towns # Baso # Seg Neutrophils % Seg Neuts % (Manual) Lymphocytes % (Manual) Monocytes % (Manual) Eosinophils % (Manual) Basophils % (Manual) Nucleated RBC % Seg Neutrophils # Seg Neutrophils # Man Lymphocytes # (Manual) Monocytes # (Manual) Eosinophils # (Manual) Basophils # (Manual) PT INR Fibrinogen dRVVT Confirm Interp Factor V Activity POC ABG pH POC ABG pCO2 POC ABG pO2 ABG pO2 ABG HCO3 ABG Base Excess ABG Hemoglobin Oxyhemoglobin Sodium Potassium Chloride Carbon Dioxide BUN Creatinine Glucose POC Glucose 126 H 116 H 129 H Lactic Acid Calcium Phosphorus Magnesium Direct Bilirubin AST ALT Alkaline Phosphatase Lactate Dehydrogenase Troponin T C-Reactive Protein Total Protein Albumin Prealbumin Triglycerides Cholesterol LDL Cholesterol Direct HDL Cholesterol PTH Intact Urine pH Urine WBC (Auto) Urine Creatinine Urine Total Protein Fluid Total Protein Vancomycin Trough Rheumatoid Factor Complement C4 Miscellaneous Test Crossmatch 10/07/16 10/07/16 10/07/16 03:45 05:00 10:00 WBC 17.0 H RBC 2.68 L Hgb 7.3 L Hct 25.3 L MCV MCH 27 L MCHC 29 L RDW 19.6 H Plt Count 74 L Lymph % (Auto) Towns % (Auto) Lymph # Towns # Baso # Seg Neutrophils % Seg Neuts % (Manual) Lymphocytes % (Manual) 12.0 L Monocytes % (Manual) Eosinophils % (Manual) Basophils % (Manual) Nucleated RBC % 4.0 H Seg Neutrophils # Seg Neutrophils # Man 10.7 H Lymphocytes # (Manual) Monocytes # (Manual) Eosinophils # (Manual) Basophils # (Manual) PT INR Fibrinogen dRVVT Confirm Interp Factor V Activity POC ABG pH POC ABG pCO2 POC ABG pO2 ABG pO2 ABG HCO3 ABG Base Excess ABG Hemoglobin Oxyhemoglobin Sodium 130 L Potassium 3.2 L Chloride 93.9 L Carbon Dioxide 20 L BUN 44 H Creatinine 2.7 H Glucose 129 H POC Glucose Lactic Acid Calcium 7.4 L Phosphorus Magnesium Direct Bilirubin AST ALT 6 L Alkaline Phosphatase 195 H Lactate Dehydrogenase Troponin T C-Reactive Protein Total Protein 4.9 L Albumin 1.0 L Prealbumin Triglycerides Cholesterol LDL Cholesterol Direct HDL Cholesterol PTH Intact Urine pH Urine WBC (Auto) Urine Creatinine Urine Total Protein Fluid Total Protein Vancomycin Trough Rheumatoid Factor Complement C4 Miscellaneous Test Flexitest 1 H Crossmatch 10/07/16 10/07/16 10/07/16 10:00 11:24 18:10 WBC RBC Hgb Hct MCV MCH MCHC RDW Plt Count Lymph % (Auto) Towns % (Auto) Lymph # Towns # Baso # Seg Neutrophils % Seg Neuts % (Manual) Lymphocytes % (Manual) Monocytes % (Manual) Eosinophils % (Manual) Basophils % (Manual) Nucleated RBC % Seg Neutrophils # Seg Neutrophils # Man Lymphocytes # (Manual) Monocytes # (Manual) Eosinophils # (Manual) Basophils # (Manual) PT INR Fibrinogen dRVVT Confirm Interp Factor V Activity POC ABG pH POC ABG pCO2 POC ABG pO2 ABG pO2 ABG HCO3 ABG Base Excess ABG Hemoglobin Oxyhemoglobin Sodium Potassium Chloride Carbon Dioxide BUN Creatinine Glucose POC Glucose 116 H 130 H Lactic Acid Calcium Phosphorus Magnesium Direct Bilirubin AST ALT Alkaline Phosphatase Lactate Dehydrogenase Troponin T C-Reactive Protein 19.40 H Total Protein Albumin Prealbumin Triglycerides Cholesterol LDL Cholesterol Direct HDL Cholesterol PTH Intact Urine pH Urine WBC (Auto) Urine Creatinine Urine Total Protein Fluid Total Protein Vancomycin Trough Rheumatoid Factor Complement C4 Miscellaneous Test Crossmatch 10/07/16 10/08/16 10/08/16 18:30 00:00 04:00 WBC RBC Hgb Hct MCV MCH MCHC RDW Plt Count Lymph % (Auto) Towns % (Auto) Lymph # Towns # Baso # Seg Neutrophils % Seg Neuts % (Manual) Lymphocytes % (Manual) Monocytes % (Manual) Eosinophils % (Manual) Basophils % (Manual) Nucleated RBC % Seg Neutrophils # Seg Neutrophils # Man Lymphocytes # (Manual) Monocytes # (Manual) Eosinophils # (Manual) Basophils # (Manual) PT INR Fibrinogen dRVVT Confirm Interp Factor V Activity POC ABG pH POC ABG pCO2 POC ABG pO2 ABG pO2 ABG HCO3 ABG Base Excess ABG Hemoglobin Oxyhemoglobin Sodium 132 L Potassium 3.3 L Chloride 93.6 L Carbon Dioxide 17 L BUN 59 H Creatinine 2.7 H Glucose 121 H POC Glucose 122 H Lactic Acid Calcium 7.6 L Phosphorus Magnesium Direct Bilirubin AST ALT Alkaline Phosphatase Lactate Dehydrogenase Troponin T C-Reactive Protein Total Protein Albumin Prealbumin Triglycerides Cholesterol LDL Cholesterol Direct HDL Cholesterol PTH Intact Urine pH Urine WBC (Auto) > 182.0 H Urine Creatinine Urine Total Protein Fluid Total Protein Vancomycin Trough Rheumatoid Factor Complement C4 Miscellaneous Test Crossmatch 10/08/16 10/08/16 10/08/16 04:30 05:30 11:51 WBC RBC 5.15 H Hgb 14.4 H D Hct 44.5 H D MCV MCH MCHC RDW 19.5 H Plt Count 56 L Lymph % (Auto) Towns % (Auto) Lymph # Towns # Baso # Seg Neutrophils % Seg Neuts % (Manual) 24.0 L Lymphocytes % (Manual) 8.0 L Monocytes % (Manual) Eosinophils % (Manual) Basophils % (Manual) Nucleated RBC % 9.0 H Seg Neutrophils # Seg Neutrophils # Man Lymphocytes # (Manual) 0.7 L Monocytes # (Manual) Eosinophils # (Manual) Basophils # (Manual) PT INR Fibrinogen dRVVT Confirm Interp Factor V Activity POC ABG pH POC ABG pCO2 POC ABG pO2 ABG pO2 ABG HCO3 ABG Base Excess ABG Hemoglobin Oxyhemoglobin Sodium Potassium Chloride Carbon Dioxide BUN Creatinine Glucose POC Glucose 125 H 150 H Lactic Acid Calcium Phosphorus Magnesium Direct Bilirubin AST ALT Alkaline Phosphatase Lactate Dehydrogenase Troponin T C-Reactive Protein Total Protein Albumin Prealbumin Triglycerides Cholesterol LDL Cholesterol Direct HDL Cholesterol PTH Intact Urine pH Urine WBC (Auto) Urine Creatinine Urine Total Protein Fluid Total Protein Vancomycin Trough Rheumatoid Factor Complement C4 Miscellaneous Test Crossmatch 10/08/16 10/08/16 10/08/16 12:49 17:07 19:30 WBC RBC Hgb 7.1 L D Hct 22.4 L D MCV MCH MCHC RDW Plt Count Lymph % (Auto) Towns % (Auto) Lymph # Towns # Baso # Seg Neutrophils % Seg Neuts % (Manual) Lymphocytes % (Manual) Monocytes % (Manual) Eosinophils % (Manual) Basophils % (Manual) Nucleated RBC % Seg Neutrophils # Seg Neutrophils # Man Lymphocytes # (Manual) Monocytes # (Manual) Eosinophils # (Manual) Basophils # (Manual) PT INR Fibrinogen dRVVT Confirm Interp Factor V Activity POC ABG pH POC ABG pCO2 28.2 L POC ABG pO2 111 H ABG pO2 ABG HCO3 ABG Base Excess ABG Hemoglobin Oxyhemoglobin Sodium Potassium Chloride Carbon Dioxide BUN Creatinine Glucose POC Glucose 145 H Lactic Acid Calcium Phosphorus Magnesium Direct Bilirubin AST ALT Alkaline Phosphatase Lactate Dehydrogenase Troponin T C-Reactive Protein Total Protein Albumin Prealbumin Triglycerides Cholesterol LDL Cholesterol Direct HDL Cholesterol PTH Intact Urine pH Urine WBC (Auto) Urine Creatinine Urine Total Protein Fluid Total Protein Vancomycin Trough Rheumatoid Factor Complement C4 Miscellaneous Test Crossmatch 10/08/16 10/09/16 10/09/16 19:30 03:45 03:45 WBC 12.6 H RBC 2.36 L Hgb 6.7 L Hct 21.1 L MCV MCH MCHC RDW 19.5 H Plt Count 75 L Lymph % (Auto) Towns % (Auto) Lymph # Towns # Baso # Seg Neutrophils % Seg Neuts % (Manual) Lymphocytes % (Manual) Monocytes % (Manual) 10.0 H Eosinophils % (Manual) Basophils % (Manual) Nucleated RBC % 3.0 H Seg Neutrophils # Seg Neutrophils # Man Lymphocytes # (Manual) Monocytes # (Manual) 1.3 H Eosinophils # (Manual) Basophils # (Manual) PT 18.0 H INR 1.41 H Fibrinogen dRVVT Confirm Interp Factor V Activity POC ABG pH POC ABG pCO2 POC ABG pO2 ABG pO2 ABG HCO3 ABG Base Excess ABG Hemoglobin Oxyhemoglobin Sodium 135 L Potassium Chloride Carbon Dioxide 17 L BUN 81 H Creatinine 3.2 H Glucose 109 H POC Glucose Lactic Acid Calcium 7.4 L Phosphorus 4.60 H D Magnesium Direct Bilirubin AST ALT Alkaline Phosphatase Lactate Dehydrogenase Troponin T C-Reactive Protein Total Protein Albumin Prealbumin Triglycerides Cholesterol LDL Cholesterol Direct HDL Cholesterol PTH Intact Urine pH Urine WBC (Auto) Urine Creatinine Urine Total Protein Fluid Total Protein Vancomycin Trough Rheumatoid Factor Complement C4 Miscellaneous Test Crossmatch 10/09/16 10/09/16 10/09/16 03:45 05:14 07:20 WBC RBC Hgb Hct MCV MCH MCHC RDW Plt Count Lymph % (Auto) Towns % (Auto) Lymph # Towns # Baso # Seg Neutrophils % Seg Neuts % (Manual) Lymphocytes % (Manual) Monocytes % (Manual) Eosinophils % (Manual) Basophils % (Manual) Nucleated RBC % Seg Neutrophils # Seg Neutrophils # Man Lymphocytes # (Manual) Monocytes # (Manual) Eosinophils # (Manual) Basophils # (Manual) PT 19.0 H INR 1.51 H Fibrinogen dRVVT Confirm Interp Factor V Activity POC ABG pH POC ABG pCO2 POC ABG pO2 ABG pO2 ABG HCO3 ABG Base Excess ABG Hemoglobin Oxyhemoglobin Sodium Potassium Chloride Carbon Dioxide BUN Creatinine Glucose POC Glucose 151 H Lactic Acid Calcium Phosphorus Magnesium Direct Bilirubin AST ALT Alkaline Phosphatase Lactate Dehydrogenase Troponin T C-Reactive Protein Total Protein Albumin Prealbumin Triglycerides Cholesterol LDL Cholesterol Direct HDL Cholesterol PTH Intact Urine pH Urine WBC (Auto) Urine Creatinine Urine Total Protein Fluid Total Protein Vancomycin Trough Rheumatoid Factor Complement C4 Miscellaneous Test Crossmatch See Detail 10/09/16 10/09/16 10/09/16 11:46 16:20 16:43 WBC RBC Hgb 7.2 L Hct 22.2 L MCV MCH MCHC RDW Plt Count Lymph % (Auto) Towns % (Auto) Lymph # Towns # Baso # Seg Neutrophils % Seg Neuts % (Manual) Lymphocytes % (Manual) Monocytes % (Manual) Eosinophils % (Manual) Basophils % (Manual) Nucleated RBC % Seg Neutrophils # Seg Neutrophils # Man Lymphocytes # (Manual) Monocytes # (Manual) Eosinophils # (Manual) Basophils # (Manual) PT INR Fibrinogen dRVVT Confirm Interp Factor V Activity POC ABG pH POC ABG pCO2 POC ABG pO2 ABG pO2 ABG HCO3 ABG Base Excess ABG Hemoglobin Oxyhemoglobin Sodium Potassium Chloride Carbon Dioxide BUN Creatinine Glucose POC Glucose 133 H 141 H Lactic Acid Calcium Phosphorus Magnesium Direct Bilirubin AST ALT Alkaline Phosphatase Lactate Dehydrogenase Troponin T C-Reactive Protein Total Protein Albumin Prealbumin Triglycerides Cholesterol LDL Cholesterol Direct HDL Cholesterol PTH Intact Urine pH Urine WBC (Auto) Urine Creatinine Urine Total Protein Fluid Total Protein Vancomycin Trough Rheumatoid Factor Complement C4 Miscellaneous Test Crossmatch 10/10/16 10/10/16 10/10/16 05:00 05:00 11:19 WBC 18.5 H RBC 2.19 L Hgb 6.4 L Hct 19.6 L* MCV MCH MCHC RDW 19.3 H Plt Count 93 L Lymph % (Auto) Towns % (Auto) Lymph # Towns # Baso # Seg Neutrophils % Seg Neuts % (Manual) Lymphocytes % (Manual) 10.0 L Monocytes % (Manual) Eosinophils % (Manual) Basophils % (Manual) Nucleated RBC % 4.0 H Seg Neutrophils # Seg Neutrophils # Man 11.3 H Lymphocytes # (Manual) Monocytes # (Manual) Eosinophils # (Manual) Basophils # (Manual) PT INR Fibrinogen dRVVT Confirm Interp Factor V Activity POC ABG pH POC ABG pCO2 POC ABG pO2 ABG pO2 ABG HCO3 ABG Base Excess ABG Hemoglobin Oxyhemoglobin Sodium Potassium 5.7 H D Chloride Carbon Dioxide 16 L BUN 94 H Creatinine 3.1 H Glucose 131 H POC Glucose 153 H Lactic Acid Calcium 8.2 L Phosphorus 5.10 H Magnesium 2.40 H Direct Bilirubin 0.3 H AST ALT < 5 L Alkaline Phosphatase 319 H Lactate Dehydrogenase Troponin T C-Reactive Protein Total Protein 5.1 L Albumin 1.0 L Prealbumin Triglycerides Cholesterol LDL Cholesterol Direct HDL Cholesterol PTH Intact Urine pH Urine WBC (Auto) Urine Creatinine Urine Total Protein Fluid Total Protein Vancomycin Trough Rheumatoid Factor Complement C4 Miscellaneous Test Crossmatch 10/10/16 10/10/16 10/11/16 17:50 23:30 04:15 WBC RBC Hgb Hct MCV MCH MCHC RDW Plt Count Lymph % (Auto) Towns % (Auto) Lymph # Towns # Baso # Seg Neutrophils % Seg Neuts % (Manual) Lymphocytes % (Manual) Monocytes % (Manual) Eosinophils % (Manual) Basophils % (Manual) Nucleated RBC % Seg Neutrophils # Seg Neutrophils # Man Lymphocytes # (Manual) Monocytes # (Manual) Eosinophils # (Manual) Basophils # (Manual) PT INR Fibrinogen dRVVT Confirm Interp Factor V Activity POC ABG pH POC ABG pCO2 POC ABG pO2 ABG pO2 ABG HCO3 ABG Base Excess ABG Hemoglobin Oxyhemoglobin Sodium Potassium Chloride 96.4 L Carbon Dioxide 21 L BUN 57 H Creatinine 2.1 H Glucose 151 H POC Glucose 146 H 141 H Lactic Acid Calcium 8.3 L Phosphorus Magnesium Direct Bilirubin AST ALT Alkaline Phosphatase Lactate Dehydrogenase Troponin T C-Reactive Protein Total Protein Albumin Prealbumin Triglycerides Cholesterol LDL Cholesterol Direct HDL Cholesterol PTH Intact Urine pH Urine WBC (Auto) Urine Creatinine Urine Total Protein Fluid Total Protein Vancomycin Trough Rheumatoid Factor Complement C4 Miscellaneous Test Crossmatch 10/11/16 10/11/16 10/11/16 04:15 04:15 05:30 WBC 28.3 H RBC 3.12 L Hgb 9.3 L Hct 28.7 L D MCV MCH MCHC RDW 17.7 H Plt Count 128 L Lymph % (Auto) Towns % (Auto) Lymph # Towns # Baso # Seg Neutrophils % Seg Neuts % (Manual) Lymphocytes % (Manual) Monocytes % (Manual) Eosinophils % (Manual) Basophils % (Manual) Nucleated RBC % Seg Neutrophils # Seg Neutrophils # Man Lymphocytes # (Manual) Monocytes # (Manual) Eosinophils # (Manual) Basophils # (Manual) PT INR Fibrinogen dRVVT Confirm Interp Factor V Activity POC ABG pH POC ABG pCO2 POC ABG pO2 ABG pO2 ABG HCO3 ABG Base Excess ABG Hemoglobin Oxyhemoglobin Sodium Potassium Chloride Carbon Dioxide BUN Creatinine Glucose POC Glucose 167 H Lactic Acid Calcium Phosphorus Magnesium Direct Bilirubin AST ALT Alkaline Phosphatase Lactate Dehydrogenase Troponin T C-Reactive Protein 15.80 H Total Protein Albumin Prealbumin Triglycerides Cholesterol LDL Cholesterol Direct HDL Cholesterol PTH Intact Urine pH Urine WBC (Auto) Urine Creatinine Urine Total Protein Fluid Total Protein Vancomycin Trough Rheumatoid Factor Complement C4 Miscellaneous Test Crossmatch 10/11/16 10/11/16 10/11/16 11:40 15:49 23:57 WBC RBC Hgb Hct MCV MCH MCHC RDW Plt Count Lymph % (Auto) Towns % (Auto) Lymph # Towns # Baso # Seg Neutrophils % Seg Neuts % (Manual) Lymphocytes % (Manual) Monocytes % (Manual) Eosinophils % (Manual) Basophils % (Manual) Nucleated RBC % Seg Neutrophils # Seg Neutrophils # Man Lymphocytes # (Manual) Monocytes # (Manual) Eosinophils # (Manual) Basophils # (Manual) PT INR Fibrinogen dRVVT Confirm Interp Factor V Activity POC ABG pH POC ABG pCO2 POC ABG pO2 ABG pO2 ABG HCO3 ABG Base Excess ABG Hemoglobin Oxyhemoglobin Sodium Potassium Chloride Carbon Dioxide BUN Creatinine Glucose POC Glucose 139 H 168 H 161 H Lactic Acid Calcium Phosphorus Magnesium Direct Bilirubin AST ALT Alkaline Phosphatase Lactate Dehydrogenase Troponin T C-Reactive Protein Total Protein Albumin Prealbumin Triglycerides Cholesterol LDL Cholesterol Direct HDL Cholesterol PTH Intact Urine pH Urine WBC (Auto) Urine Creatinine Urine Total Protein Fluid Total Protein Vancomycin Trough Rheumatoid Factor Complement C4 Miscellaneous Test Crossmatch 10/12/16 10/12/16 10/12/16 04:40 04:40 05:44 WBC 22.5 H RBC 2.88 L Hgb 8.8 L Hct 26.8 L MCV MCH MCHC RDW 17.8 H Plt Count Lymph % (Auto) Towns % (Auto) Lymph # Towns # Baso # Seg Neutrophils % Seg Neuts % (Manual) Lymphocytes % (Manual) Monocytes % (Manual) Eosinophils % (Manual) Basophils % (Manual) Nucleated RBC % Seg Neutrophils # Seg Neutrophils # Man Lymphocytes # (Manual) Monocytes # (Manual) Eosinophils # (Manual) Basophils # (Manual) PT INR Fibrinogen dRVVT Confirm Interp Factor V Activity POC ABG pH POC ABG pCO2 POC ABG pO2 ABG pO2 ABG HCO3 ABG Base Excess ABG Hemoglobin Oxyhemoglobin Sodium 134 L Potassium Chloride 93.0 L Carbon Dioxide BUN 74 H Creatinine 2.5 H Glucose 137 H POC Glucose 158 H Lactic Acid Calcium 8.2 L Phosphorus Magnesium Direct Bilirubin AST ALT Alkaline Phosphatase Lactate Dehydrogenase Troponin T C-Reactive Protein Total Protein Albumin Prealbumin Triglycerides Cholesterol LDL Cholesterol Direct HDL Cholesterol PTH Intact Urine pH Urine WBC (Auto) Urine Creatinine Urine Total Protein Fluid Total Protein Vancomycin Trough Rheumatoid Factor Complement C4 Miscellaneous Test Crossmatch 10/12/16 10/12/16 10/12/16 12:27 18:18 23:46 WBC RBC Hgb Hct MCV MCH MCHC RDW Plt Count Lymph % (Auto) Towns % (Auto) Lymph # Towns # Baso # Seg Neutrophils % Seg Neuts % (Manual) Lymphocytes % (Manual) Monocytes % (Manual) Eosinophils % (Manual) Basophils % (Manual) Nucleated RBC % Seg Neutrophils # Seg Neutrophils # Man Lymphocytes # (Manual) Monocytes # (Manual) Eosinophils # (Manual) Basophils # (Manual) PT INR Fibrinogen dRVVT Confirm Interp Factor V Activity POC ABG pH POC ABG pCO2 POC ABG pO2 ABG pO2 ABG HCO3 ABG Base Excess ABG Hemoglobin Oxyhemoglobin Sodium Potassium Chloride Carbon Dioxide BUN Creatinine Glucose POC Glucose 153 H 140 H 150 H Lactic Acid Calcium Phosphorus Magnesium Direct Bilirubin AST ALT Alkaline Phosphatase Lactate Dehydrogenase Troponin T C-Reactive Protein Total Protein Albumin Prealbumin Triglycerides Cholesterol LDL Cholesterol Direct HDL Cholesterol PTH Intact Urine pH Urine WBC (Auto) Urine Creatinine Urine Total Protein Fluid Total Protein Vancomycin Trough Rheumatoid Factor Complement C4 Miscellaneous Test Crossmatch 10/13/16 10/13/16 10/13/16 06:22 09:20 12:29 WBC RBC Hgb Hct MCV MCH MCHC RDW Plt Count Lymph % (Auto) Towns % (Auto) Lymph # Towns # Baso # Seg Neutrophils % Seg Neuts % (Manual) Lymphocytes % (Manual) Monocytes % (Manual) Eosinophils % (Manual) Basophils % (Manual) Nucleated RBC % Seg Neutrophils # Seg Neutrophils # Man Lymphocytes # (Manual) Monocytes # (Manual) Eosinophils # (Manual) Basophils # (Manual) PT INR Fibrinogen dRVVT Confirm Interp Factor V Activity POC ABG pH POC ABG pCO2 POC ABG pO2 ABG pO2 ABG HCO3 ABG Base Excess ABG Hemoglobin Oxyhemoglobin Sodium Potassium Chloride Carbon Dioxide BUN Creatinine Glucose POC Glucose 165 H 193 H Lactic Acid Calcium Phosphorus Magnesium Direct Bilirubin AST ALT Alkaline Phosphatase Lactate Dehydrogenase Troponin T C-Reactive Protein Total Protein Albumin Prealbumin Triglycerides Cholesterol LDL Cholesterol Direct HDL Cholesterol PTH Intact Urine pH Urine WBC (Auto) Urine Creatinine Urine Total Protein Fluid Total Protein Vancomycin Trough Rheumatoid Factor Complement C4 Miscellaneous Test Flexitest 1 H Crossmatch 10/13/16 10/13/16 10/13/16 18:09 Unknown Unknown WBC 23.4 H RBC 2.83 L Hgb 8.7 L Hct 26.1 L MCV MCH MCHC RDW 18.1 H Plt Count Lymph % (Auto) Towns % (Auto) Lymph # Towns # Baso # Seg Neutrophils % Seg Neuts % (Manual) Lymphocytes % (Manual) Monocytes % (Manual) Eosinophils % (Manual) Basophils % (Manual) Nucleated RBC % Seg Neutrophils # Seg Neutrophils # Man Lymphocytes # (Manual) Monocytes # (Manual) Eosinophils # (Manual) Basophils # (Manual) PT INR Fibrinogen dRVVT Confirm Interp Factor V Activity POC ABG pH POC ABG pCO2 POC ABG pO2 ABG pO2 ABG HCO3 ABG Base Excess ABG Hemoglobin Oxyhemoglobin Sodium Potassium Chloride 95.8 L Carbon Dioxide BUN 82 H Creatinine 2.6 H Glucose 152 H POC Glucose 166 H Lactic Acid Calcium Phosphorus Magnesium Direct Bilirubin AST ALT Alkaline Phosphatase Lactate Dehydrogenase Troponin T C-Reactive Protein Total Protein Albumin Prealbumin Triglycerides Cholesterol LDL Cholesterol Direct HDL Cholesterol PTH Intact Urine pH Urine WBC (Auto) Urine Creatinine Urine Total Protein Fluid Total Protein Vancomycin Trough Rheumatoid Factor Complement C4 Miscellaneous Test Crossmatch 10/14/16 10/14/16 10/14/16 05:38 06:35 08:10 WBC 20.7 H RBC 2.81 L Hgb 8.4 L Hct 27.2 L MCV MCH MCHC RDW 19.4 H Plt Count Lymph % (Auto) Towns % (Auto) Lymph # [place]s # Baso # Seg Neutrophils % Seg Neuts % (Manual) Lymphocytes % (Manual) Monocytes % (Manual) Eosinophils % (Manual) Basophils % (Manual) Nucleated RBC % Seg Neutrophils # Seg Neutrophils # Man Lymphocytes # (Manual) Monocytes # (Manual) Eosinophils # (Manual) Basophils # (Manual) PT INR Fibrinogen dRVVT Confirm Interp Factor V Activity POC ABG pH POC ABG pCO2 POC ABG pO2 ABG pO2 ABG HCO3 ABG Base Excess ABG Hemoglobin Oxyhemoglobin Sodium Potassium Chloride Carbon Dioxide BUN 58 H Creatinine 1.9 H Glucose 169 H POC Glucose 195 H Lactic Acid Calcium Phosphorus Magnesium Direct Bilirubin AST ALT Alkaline Phosphatase Lactate Dehydrogenase Troponin T C-Reactive Protein Total Protein Albumin Prealbumin Triglycerides Cholesterol LDL Cholesterol Direct HDL Cholesterol PTH Intact Urine pH Urine WBC (Auto) Urine Creatinine Urine Total Protein Fluid Total Protein Vancomycin Trough Rheumatoid Factor Complement C4 Miscellaneous Test Crossmatch 10/14/16 10/14/16 10/14/16 11:44 17:13 23:28 WBC RBC Hgb Hct MCV MCH MCHC RDW Plt Count Lymph % (Auto) Towns % (Auto) Lymph # [place]s # Baso # Seg Neutrophils % Seg Neuts % (Manual) Lymphocytes % (Manual) Monocytes % (Manual) Eosinophils % (Manual) Basophils % (Manual) Nucleated RBC % Seg Neutrophils # Seg Neutrophils # Man Lymphocytes # (Manual) Monocytes # (Manual) Eosinophils # (Manual) Basophils # (Manual) PT INR Fibrinogen dRVVT Confirm Interp Factor V Activity POC ABG pH POC ABG pCO2 POC ABG pO2 ABG pO2 ABG HCO3 ABG Base Excess ABG Hemoglobin Oxyhemoglobin Sodium Potassium Chloride Carbon Dioxide BUN Creatinine Glucose POC Glucose 174 H 121 H 151 H Lactic Acid Calcium Phosphorus Magnesium Direct Bilirubin AST ALT Alkaline Phosphatase Lactate Dehydrogenase Troponin T C-Reactive Protein Total Protein Albumin Prealbumin Triglycerides Cholesterol LDL Cholesterol Direct HDL Cholesterol PTH Intact Urine pH Urine WBC (Auto) Urine Creatinine Urine Total Protein Fluid Total Protein Vancomycin Trough Rheumatoid Factor Complement C4 Miscellaneous Test Crossmatch 10/15/16 10/15/16 10/15/16 05:06 12:26 17:48 WBC RBC Hgb Hct MCV MCH MCHC RDW Plt Count Lymph % (Auto) Towns % (Auto) Lymph # [place] # Baso # Seg Neutrophils % Seg Neuts % (Manual) Lymphocytes % (Manual) Monocytes % (Manual) Eosinophils % (Manual) Basophils % (Manual) Nucleated RBC % Seg Neutrophils # Seg Neutrophils # Man Lymphocytes # (Manual) Monocytes # (Manual) Eosinophils # (Manual) Basophils # (Manual) PT INR Fibrinogen dRVVT Confirm Interp Factor V Activity POC ABG pH POC ABG pCO2 POC ABG pO2 ABG pO2 ABG HCO3 ABG Base Excess ABG Hemoglobin Oxyhemoglobin Sodium Potassium Chloride Carbon Dioxide BUN Creatinine Glucose POC Glucose 151 H 149 H 153 H Lactic Acid Calcium Phosphorus Magnesium Direct Bilirubin AST ALT Alkaline Phosphatase Lactate Dehydrogenase Troponin T C-Reactive Protein Total Protein Albumin Prealbumin Triglycerides Cholesterol LDL Cholesterol Direct HDL Cholesterol PTH Intact Urine pH Urine WBC (Auto) Urine Creatinine Urine Total Protein Fluid Total Protein Vancomycin Trough Rheumatoid Factor Complement C4 Miscellaneous Test Crossmatch 10/15/16 10/15/16 10/16/16 Unknown Unknown 00:02 WBC 23.4 H RBC 2.78 L Hgb 8.5 L Hct 25.7 L MCV MCH MCHC RDW 18.7 H Plt Count Lymph % (Auto) Towns % (Auto) Lymph # [place] # Baso # Seg Neutrophils % Seg Neuts % (Manual) Lymphocytes % (Manual) Monocytes % (Manual) Eosinophils % (Manual) Basophils % (Manual) Nucleated RBC % Seg Neutrophils # Seg Neutrophils # Man Lymphocytes # (Manual) Monocytes # (Manual) Eosinophils # (Manual) Basophils # (Manual) PT INR Fibrinogen dRVVT Confirm Interp Factor V Activity POC ABG pH POC ABG pCO2 POC ABG pO2 ABG pO2 ABG HCO3 ABG Base Excess ABG Hemoglobin Oxyhemoglobin Sodium Potassium Chloride Carbon Dioxide BUN 73 H Creatinine 2.3 H Glucose 120 H POC Glucose 137 H Lactic Acid Calcium Phosphorus Magnesium Direct Bilirubin AST ALT Alkaline Phosphatase Lactate Dehydrogenase Troponin T C-Reactive Protein Total Protein Albumin Prealbumin Triglycerides Cholesterol LDL Cholesterol Direct HDL Cholesterol PTH Intact Urine pH Urine WBC (Auto) Urine Creatinine Urine Total Protein Fluid Total Protein Vancomycin Trough Rheumatoid Factor Complement C4 Miscellaneous Test Crossmatch 10/16/16 10/16/16 10/16/16 05:44 06:25 06:25 WBC 22.5 H RBC 2.76 L Hgb 8.3 L Hct 25.2 L MCV MCH MCHC RDW 18.3 H Plt Count Lymph % (Auto) Towns % (Auto) Lymph # [place] # Baso # Seg Neutrophils % Seg Neuts % (Manual) Lymphocytes % (Manual) Monocytes % (Manual) Eosinophils % (Manual) Basophils % (Manual) Nucleated RBC % Seg Neutrophils # Seg Neutrophils # Man Lymphocytes # (Manual) Monocytes # (Manual) Eosinophils # (Manual) Basophils # (Manual) PT INR Fibrinogen dRVVT Confirm Interp Factor V Activity POC ABG pH POC ABG pCO2 POC ABG pO2 ABG pO2 ABG HCO3 ABG Base Excess ABG Hemoglobin Oxyhemoglobin Sodium Potassium Chloride Carbon Dioxide BUN 92 H Creatinine 3.0 H Glucose 138 H POC Glucose 110 H Lactic Acid Calcium Phosphorus Magnesium Direct Bilirubin AST ALT Alkaline Phosphatase Lactate Dehydrogenase Troponin T C-Reactive Protein Total Protein Albumin Prealbumin Triglycerides Cholesterol LDL Cholesterol Direct HDL Cholesterol PTH Intact Urine pH Urine WBC (Auto) Urine Creatinine Urine Total Protein Fluid Total Protein Vancomycin Trough Rheumatoid Factor Complement C4 Miscellaneous Test Crossmatch 10/16/16 10/16/16 10/16/16 11:27 11:48 17:36 WBC RBC Hgb Hct MCV MCH MCHC RDW Plt Count Lymph % (Auto) Towns % (Auto) Lymph # [place] # Baso # Seg Neutrophils % Seg Neuts % (Manual) Lymphocytes % (Manual) Monocytes % (Manual) Eosinophils % (Manual) Basophils % (Manual) Nucleated RBC % Seg Neutrophils # Seg Neutrophils # Man Lymphocytes # (Manual) Monocytes # (Manual) Eosinophils # (Manual) Basophils # (Manual) PT INR Fibrinogen dRVVT Confirm Interp Factor V Activity POC ABG pH 7.582 H POC ABG pCO2 27.4 L POC ABG pO2 110 H ABG pO2 ABG HCO3 ABG Base Excess ABG Hemoglobin Oxyhemoglobin Sodium Potassium Chloride Carbon Dioxide BUN Creatinine Glucose POC Glucose 121 H 133 H Lactic Acid Calcium Phosphorus Magnesium Direct Bilirubin AST ALT Alkaline Phosphatase Lactate Dehydrogenase Troponin T C-Reactive Protein Total Protein Albumin Prealbumin Triglycerides Cholesterol LDL Cholesterol Direct HDL Cholesterol PTH Intact Urine pH Urine WBC (Auto) Urine Creatinine Urine Total Protein Fluid Total Protein Vancomycin Trough Rheumatoid Factor Complement C4 Miscellaneous Test Crossmatch 10/16/16 10/17/16 10/17/16 20:48 04:24 04:24 WBC 21.4 H RBC 2.72 L Hgb 8.0 L Hct 25.2 L MCV MCH MCHC RDW 18.0 H Plt Count Lymph % (Auto) Towns % (Auto) Lymph # [place] # Baso # Seg Neutrophils % Seg Neuts % (Manual) Lymphocytes % (Manual) Monocytes % (Manual) Eosinophils % (Manual) Basophils % (Manual) Nucleated RBC % Seg Neutrophils # Seg Neutrophils # Man Lymphocytes # (Manual) Monocytes # (Manual) Eosinophils # (Manual) Basophils # (Manual) PT INR Fibrinogen dRVVT Confirm Interp Factor V Activity POC ABG pH 7.561 H POC ABG pCO2 24.4 L POC ABG pO2 77 L ABG pO2 ABG HCO3 ABG Base Excess ABG Hemoglobin Oxyhemoglobin Sodium 148 H Potassium Chloride Carbon Dioxide BUN 104 H Creatinine 3.0 H Glucose 149 H POC Glucose Lactic Acid Calcium Phosphorus Magnesium Direct Bilirubin AST ALT Alkaline Phosphatase 138 H Lactate Dehydrogenase Troponin T C-Reactive Protein Total Protein 6.2 L Albumin 1.5 L Prealbumin Triglycerides Cholesterol LDL Cholesterol Direct HDL Cholesterol PTH Intact Urine pH Urine WBC (Auto) Urine Creatinine Urine Total Protein Fluid Total Protein Vancomycin Trough Rheumatoid Factor Complement C4 Miscellaneous Test Crossmatch 10/17/16 10/17/16 10/17/16 06:02 12:17 17:14 WBC RBC Hgb Hct MCV MCH MCHC RDW Plt Count Lymph % (Auto) Towns % (Auto) Lymph # [place] # Baso # Seg Neutrophils % Seg Neuts % (Manual) Lymphocytes % (Manual) Monocytes % (Manual) Eosinophils % (Manual) Basophils % (Manual) Nucleated RBC % Seg Neutrophils # Seg Neutrophils # Man Lymphocytes # (Manual) Monocytes # (Manual) Eosinophils # (Manual) Basophils # (Manual) PT INR Fibrinogen dRVVT Confirm Interp Factor V Activity POC ABG pH POC ABG pCO2 POC ABG pO2 ABG pO2 ABG HCO3 ABG Base Excess ABG Hemoglobin Oxyhemoglobin Sodium Potassium Chloride Carbon Dioxide BUN Creatinine Glucose POC Glucose 170 H 167 H 126 H Lactic Acid Calcium Phosphorus Magnesium Direct Bilirubin AST ALT Alkaline Phosphatase Lactate Dehydrogenase Troponin T C-Reactive Protein Total Protein Albumin Prealbumin Triglycerides Cholesterol LDL Cholesterol Direct HDL Cholesterol PTH Intact Urine pH Urine WBC (Auto) Urine Creatinine Urine Total Protein Fluid Total Protein Vancomycin Trough Rheumatoid Factor Complement C4 Miscellaneous Test Crossmatch 10/17/16 10/18/16 10/18/16 23:17 04:00 04:00 WBC 20.7 H RBC 2.47 L Hgb 7.4 L Hct 22.9 L MCV MCH MCHC RDW 17.5 H Plt Count Lymph % (Auto) Towns % (Auto) Lymph # [place] # Baso # Seg Neutrophils % Seg Neuts % (Manual) Lymphocytes % (Manual) Monocytes % (Manual) Eosinophils % (Manual) Basophils % (Manual) Nucleated RBC % Seg Neutrophils # Seg Neutrophils # Man Lymphocytes # (Manual) Monocytes # (Manual) Eosinophils # (Manual) Basophils # (Manual) PT INR Fibrinogen dRVVT Confirm Interp Factor V Activity POC ABG pH POC ABG pCO2 POC ABG pO2 ABG pO2 ABG HCO3 ABG Base Excess ABG Hemoglobin Oxyhemoglobin Sodium 149 H Potassium Chloride 107.9 H Carbon Dioxide 20 L BUN 117 H Creatinine 3.2 H Glucose 119 H POC Glucose 121 H Lactic Acid Calcium Phosphorus Magnesium Direct Bilirubin AST ALT Alkaline Phosphatase Lactate Dehydrogenase Troponin T C-Reactive Protein Total Protein Albumin Prealbumin Triglycerides Cholesterol LDL Cholesterol Direct HDL Cholesterol PTH Intact Urine pH Urine WBC (Auto) Urine Creatinine Urine Total Protein Fluid Total Protein Vancomycin Trough Rheumatoid Factor Complement C4 Miscellaneous Test Crossmatch 10/18/16 10/18/16 10/18/16 05:23 10:46 17:30 WBC RBC Hgb Hct MCV MCH MCHC RDW Plt Count Lymph % (Auto) Towns % (Auto) Lymph # [place] # Baso # Seg Neutrophils % Seg Neuts % (Manual) Lymphocytes % (Manual) Monocytes % (Manual) Eosinophils % (Manual) Basophils % (Manual) Nucleated RBC % Seg Neutrophils # Seg Neutrophils # Man Lymphocytes # (Manual) Monocytes # (Manual) Eosinophils # (Manual) Basophils # (Manual) PT INR Fibrinogen dRVVT Confirm Interp Factor V Activity POC ABG pH POC ABG pCO2 POC ABG pO2 ABG pO2 ABG HCO3 ABG Base Excess ABG Hemoglobin Oxyhemoglobin Sodium Potassium Chloride Carbon Dioxide BUN Creatinine Glucose POC Glucose 119 H 155 H 124 H Lactic Acid Calcium Phosphorus Magnesium Direct Bilirubin AST ALT Alkaline Phosphatase Lactate Dehydrogenase Troponin T C-Reactive Protein Total Protein Albumin Prealbumin Triglycerides Cholesterol LDL Cholesterol Direct HDL Cholesterol PTH Intact Urine pH Urine WBC (Auto) Urine Creatinine Urine Total Protein Fluid Total Protein Vancomycin Trough Rheumatoid Factor Complement C4 Miscellaneous Test Crossmatch 10/19/16 10/19/16 10/19/16 04:00 04:00 05:25 WBC 17.4 H RBC 2.54 L Hgb 7.7 L Hct 23.6 L MCV MCH MCHC RDW 17.3 H Plt Count Lymph % (Auto) [place]s % (Auto) Lymph # [place] # Baso # Seg Neutrophils % Seg Neuts % (Manual) Lymphocytes % (Manual) Monocytes % (Manual) Eosinophils % (Manual) Basophils % (Manual) Nucleated RBC % Seg Neutrophils # Seg Neutrophils # Man Lymphocytes # (Manual) Monocytes # (Manual) Eosinophils # (Manual) Basophils # (Manual) PT INR Fibrinogen dRVVT Confirm Interp Factor V Activity POC ABG pH POC ABG pCO2 POC ABG pO2 ABG pO2 ABG HCO3 ABG Base Excess ABG Hemoglobin Oxyhemoglobin Sodium Potassium Chloride Carbon Dioxide BUN 72 H Creatinine 2.1 H Glucose 116 H POC Glucose 119 H Lactic Acid Calcium Phosphorus Magnesium Direct Bilirubin AST ALT Alkaline Phosphatase Lactate Dehydrogenase Troponin T C-Reactive Protein Total Protein Albumin Prealbumin Triglycerides Cholesterol LDL Cholesterol Direct HDL Cholesterol PTH Intact Urine pH Urine WBC (Auto) Urine Creatinine Urine Total Protein Fluid Total Protein Vancomycin Trough Rheumatoid Factor Complement C4 Miscellaneous Test Crossmatch 10/19/16 10/19/16 10/20/16 11:46 23:59 06:00 WBC RBC Hgb Hct MCV MCH MCHC RDW Plt Count Lymph % (Auto) [place]s % (Auto) Lymph # [place] # Baso # Seg Neutrophils % Seg Neuts % (Manual) Lymphocytes % (Manual) Monocytes % (Manual) Eosinophils % (Manual) Basophils % (Manual) Nucleated RBC % Seg Neutrophils # Seg Neutrophils # Man Lymphocytes # (Manual) Monocytes # (Manual) Eosinophils # (Manual) Basophils # (Manual) PT INR Fibrinogen dRVVT Confirm Interp Factor V Activity POC ABG pH POC ABG pCO2 POC ABG pO2 ABG pO2 ABG HCO3 ABG Base Excess ABG Hemoglobin Oxyhemoglobin Sodium Potassium Chloride Carbon Dioxide 17 L BUN 94 H Creatinine 2.7 H Glucose POC Glucose 116 H 117 H Lactic Acid Calcium Phosphorus Magnesium Direct Bilirubin AST ALT Alkaline Phosphatase Lactate Dehydrogenase Troponin T C-Reactive Protein Total Protein Albumin Prealbumin Triglycerides Cholesterol LDL Cholesterol Direct HDL Cholesterol PTH Intact Urine pH Urine WBC (Auto) Urine Creatinine Urine Total Protein Fluid Total Protein Vancomycin Trough Rheumatoid Factor Complement C4 Miscellaneous Test Crossmatch 10/20/16 10/20/16 10/20/16 06:00 11:49 16:00 WBC 19.7 H RBC 2.51 L Hgb 7.7 L Hct 23.5 L MCV MCH MCHC RDW 17.5 H Plt Count Lymph % (Auto) [place]s % (Auto) Lymph # [place] # Baso # Seg Neutrophils % Seg Neuts % (Manual) Lymphocytes % (Manual) Monocytes % (Manual) Eosinophils % (Manual) Basophils % (Manual) Nucleated RBC % Seg Neutrophils # Seg Neutrophils # Man Lymphocytes # (Manual) Monocytes # (Manual) Eosinophils # (Manual) Basophils # (Manual) PT INR Fibrinogen dRVVT Confirm Interp Factor V Activity POC ABG pH POC ABG pCO2 POC ABG pO2 ABG pO2 ABG HCO3 ABG Base Excess ABG Hemoglobin Oxyhemoglobin Sodium Potassium Chloride Carbon Dioxide BUN Creatinine Glucose POC Glucose 117 H Lactic Acid Calcium Phosphorus Magnesium Direct Bilirubin AST ALT Alkaline Phosphatase Lactate Dehydrogenase Troponin T C-Reactive Protein Total Protein Albumin Prealbumin Triglycerides Cholesterol LDL Cholesterol Direct HDL Cholesterol PTH Intact Urine pH Urine WBC (Auto) Urine Creatinine Urine Total Protein Fluid Total Protein Vancomycin Trough Rheumatoid Factor Complement C4 Miscellaneous Test Flexitest 1 H Crossmatch 10/20/16 10/20/16 10/21/16 18:36 23:39 04:00 WBC RBC Hgb Hct MCV MCH MCHC RDW Plt Count Lymph % (Auto) Towns % (Auto) Lymph # [place] # Baso # Seg Neutrophils % Seg Neuts % (Manual) Lymphocytes % (Manual) Monocytes % (Manual) Eosinophils % (Manual) Basophils % (Manual) Nucleated RBC % Seg Neutrophils # Seg Neutrophils # Man Lymphocytes # (Manual) Monocytes # (Manual) Eosinophils # (Manual) Basophils # (Manual) PT INR Fibrinogen dRVVT Confirm Interp Factor V Activity POC ABG pH POC ABG pCO2 POC ABG pO2 ABG pO2 ABG HCO3 ABG Base Excess ABG Hemoglobin Oxyhemoglobin Sodium Potassium 5.4 H D Chloride Carbon Dioxide 15 L BUN 110 H Creatinine 3.0 H Glucose POC Glucose 127 H 114 H Lactic Acid Calcium Phosphorus Magnesium Direct Bilirubin AST ALT Alkaline Phosphatase Lactate Dehydrogenase Troponin T C-Reactive Protein Total Protein Albumin Prealbumin Triglycerides Cholesterol LDL Cholesterol Direct HDL Cholesterol PTH Intact Urine pH Urine WBC (Auto) Urine Creatinine Urine Total Protein Fluid Total Protein Vancomycin Trough Rheumatoid Factor Complement C4 Miscellaneous Test Crossmatch 10/21/16 10/21/16 10/22/16 05:54 23:46 05:18 WBC RBC Hgb Hct MCV MCH MCHC RDW Plt Count Lymph % (Auto) [place]s % (Auto) Lymph # [place] # Baso # Seg Neutrophils % Seg Neuts % (Manual) Lymphocytes % (Manual) Monocytes % (Manual) Eosinophils % (Manual) Basophils % (Manual) Nucleated RBC % Seg Neutrophils # Seg Neutrophils # Man Lymphocytes # (Manual) Monocytes # (Manual) Eosinophils # (Manual) Basophils # (Manual) PT INR Fibrinogen dRVVT Confirm Interp Factor V Activity POC ABG pH POC ABG pCO2 POC ABG pO2 ABG pO2 ABG HCO3 ABG Base Excess ABG Hemoglobin Oxyhemoglobin Sodium Potassium Chloride Carbon Dioxide BUN Creatinine Glucose POC Glucose 119 H 108 H 109 H Lactic Acid Calcium Phosphorus Magnesium Direct Bilirubin AST ALT Alkaline Phosphatase Lactate Dehydrogenase Troponin T C-Reactive Protein Total Protein Albumin Prealbumin Triglycerides Cholesterol LDL Cholesterol Direct HDL Cholesterol PTH Intact Urine pH Urine WBC (Auto) Urine Creatinine Urine Total Protein Fluid Total Protein Vancomycin Trough Rheumatoid Factor Complement C4 Miscellaneous Test Crossmatch 10/22/16 10/22/16 10/22/16 06:40 06:40 06:40 WBC 14.0 H RBC 2.03 L Hgb 7.0 L Hct 20.5 L MCV 98 H MCH 34 H MCHC 35 H RDW 17.8 H Plt Count Lymph % (Auto) Towns % (Auto) 9.9 H Lymph # Towns # 1.4 H Baso # 0.2 H Seg Neutrophils % 72.0 H Seg Neuts % (Manual) Lymphocytes % (Manual) Monocytes % (Manual) Eosinophils % (Manual) Basophils % (Manual) Nucleated RBC % Seg Neutrophils # 10.0 H Seg Neutrophils # Man Lymphocytes # (Manual) Monocytes # (Manual) Eosinophils # (Manual) Basophils # (Manual) PT INR Fibrinogen dRVVT Confirm Interp Factor V Activity POC ABG pH POC ABG pCO2 POC ABG pO2 ABG pO2 ABG HCO3 ABG Base Excess ABG Hemoglobin Oxyhemoglobin Sodium 130 L D Potassium Chloride 92.4 L Carbon Dioxide 20 L BUN 50 H Creatinine 1.6 H Glucose 589 H* POC Glucose Lactic Acid Calcium 7.8 L D Phosphorus Magnesium 1.60 L Direct Bilirubin AST ALT Alkaline Phosphatase Lactate Dehydrogenase Troponin T C-Reactive Protein Total Protein Albumin Prealbumin Triglycerides Cholesterol LDL Cholesterol Direct HDL Cholesterol PTH Intact Urine pH Urine WBC (Auto) Urine Creatinine Urine Total Protein Fluid Total Protein Vancomycin Trough Rheumatoid Factor Complement C4 Miscellaneous Test Crossmatch 10/22/16 10/22/16 10/22/16 11:39 16:44 23:36 WBC RBC Hgb Hct MCV MCH MCHC RDW Plt Count Lymph % (Auto) Towns % (Auto) Lymph # [place] # Baso # Seg Neutrophils % Seg Neuts % (Manual) Lymphocytes % (Manual) Monocytes % (Manual) Eosinophils % (Manual) Basophils % (Manual) Nucleated RBC % Seg Neutrophils # Seg Neutrophils # Man Lymphocytes # (Manual) Monocytes # (Manual) Eosinophils # (Manual) Basophils # (Manual) PT INR Fibrinogen dRVVT Confirm Interp Factor V Activity POC ABG pH POC ABG pCO2 POC ABG pO2 ABG pO2 ABG HCO3 ABG Base Excess ABG Hemoglobin Oxyhemoglobin Sodium Potassium Chloride Carbon Dioxide BUN Creatinine Glucose POC Glucose 142 H 163 H 123 H Lactic Acid Calcium Phosphorus Magnesium Direct Bilirubin AST ALT Alkaline Phosphatase Lactate Dehydrogenase Troponin T C-Reactive Protein Total Protein Albumin Prealbumin Triglycerides Cholesterol LDL Cholesterol Direct HDL Cholesterol PTH Intact Urine pH Urine WBC (Auto) Urine Creatinine Urine Total Protein Fluid Total Protein Vancomycin Trough Rheumatoid Factor Complement C4 Miscellaneous Test Crossmatch 10/23/16 10/23/16 10/23/16 04:58 06:00 12:12 WBC RBC Hgb Hct MCV MCH MCHC RDW Plt Count Lymph % (Auto) Towns % (Auto) Lymph # Town[place] # Baso # Seg Neutrophils % Seg Neuts % (Manual) Lymphocytes % (Manual) Monocytes % (Manual) Eosinophils % (Manual) Basophils % (Manual) Nucleated RBC % Seg Neutrophils # Seg Neutrophils # Man Lymphocytes # (Manual) Monocytes # (Manual) Eosinophils # (Manual) Basophils # (Manual) PT INR Fibrinogen dRVVT Confirm Interp Factor V Activity POC ABG pH POC ABG pCO2 POC ABG pO2 ABG pO2 ABG HCO3 ABG Base Excess ABG Hemoglobin Oxyhemoglobin Sodium 133 L Potassium 3.5 L Chloride 96.1 L Carbon Dioxide 18 L BUN 76 H Creatinine 2.1 H Glucose POC Glucose 133 H 138 H Lactic Acid Calcium 8.3 L Phosphorus Magnesium Direct Bilirubin AST ALT Alkaline Phosphatase Lactate Dehydrogenase Troponin T C-Reactive Protein Total Protein Albumin Prealbumin Triglycerides Cholesterol LDL Cholesterol Direct HDL Cholesterol PTH Intact Urine pH Urine WBC (Auto) Urine Creatinine Urine Total Protein Fluid Total Protein Vancomycin Trough Rheumatoid Factor Complement C4 Miscellaneous Test Crossmatch 10/23/16 10/23/16 10/24/16 16:53 23:37 04:00 WBC RBC Hgb Hct MCV MCH MCHC RDW Plt Count Lymph % (Auto) Towns % (Auto) Lymph # [place] # Baso # Seg Neutrophils % Seg Neuts % (Manual) Lymphocytes % (Manual) Monocytes % (Manual) Eosinophils % (Manual) Basophils % (Manual) Nucleated RBC % Seg Neutrophils # Seg Neutrophils # Man Lymphocytes # (Manual) Monocytes # (Manual) Eosinophils # (Manual) Basophils # (Manual) PT INR Fibrinogen dRVVT Confirm Interp Factor V Activity POC ABG pH POC ABG pCO2 POC ABG pO2 ABG pO2 ABG HCO3 ABG Base Excess ABG Hemoglobin Oxyhemoglobin Sodium 131 L Potassium Chloride 94.5 L Carbon Dioxide 19 L BUN 97 H Creatinine 2.6 H Glucose 110 H POC Glucose 125 H 123 H Lactic Acid Calcium 8.3 L Phosphorus Magnesium Direct Bilirubin AST ALT Alkaline Phosphatase Lactate Dehydrogenase Troponin T C-Reactive Protein Total Protein Albumin Prealbumin Triglycerides Cholesterol LDL Cholesterol Direct HDL Cholesterol PTH Intact Urine pH Urine WBC (Auto) Urine Creatinine Urine Total Protein Fluid Total Protein Vancomycin Trough Rheumatoid Factor Complement C4 Miscellaneous Test Crossmatch 10/24/16 10/24/16 10/24/16 07:49 11:39 17:52 WBC RBC Hgb 6.0 L Hct 19.7 L* MCV MCH MCHC RDW Plt Count Lymph % (Auto) Towns % (Auto) Lymph # Towns # Baso # Seg Neutrophils % Seg Neuts % (Manual) Lymphocytes % (Manual) Monocytes % (Manual) Eosinophils % (Manual) Basophils % (Manual) Nucleated RBC % Seg Neutrophils # Seg Neutrophils # Man Lymphocytes # (Manual) Monocytes # (Manual) Eosinophils # (Manual) Basophils # (Manual) PT INR Fibrinogen dRVVT Confirm Interp Factor V Activity POC ABG pH POC ABG pCO2 POC ABG pO2 ABG pO2 ABG HCO3 ABG Base Excess ABG Hemoglobin Oxyhemoglobin Sodium Potassium Chloride Carbon Dioxide BUN Creatinine Glucose POC Glucose 106 H 158 H Lactic Acid Calcium Phosphorus Magnesium Direct Bilirubin AST ALT Alkaline Phosphatase Lactate Dehydrogenase Troponin T C-Reactive Protein Total Protein Albumin Prealbumin Triglycerides Cholesterol LDL Cholesterol Direct HDL Cholesterol PTH Intact Urine pH Urine WBC (Auto) Urine Creatinine Urine Total Protein Fluid Total Protein Vancomycin Trough Rheumatoid Factor Complement C4 Miscellaneous Test Crossmatch 10/24/16 10/24/16 10/24/16 20:00 22:27 Unknown WBC RBC Hgb 9.4 L D Hct 27.5 L D MCV MCH MCHC RDW Plt Count Lymph % (Auto) Towns % (Auto) Lymph # Towns # Baso # Seg Neutrophils % Seg Neuts % (Manual) Lymphocytes % (Manual) Monocytes % (Manual) Eosinophils % (Manual) Basophils % (Manual) Nucleated RBC % Seg Neutrophils # Seg Neutrophils # Man Lymphocytes # (Manual) Monocytes # (Manual) Eosinophils # (Manual) Basophils # (Manual) PT INR Fibrinogen dRVVT Confirm Interp Factor V Activity POC ABG pH POC ABG pCO2 POC ABG pO2 ABG pO2 ABG HCO3 ABG Base Excess ABG Hemoglobin Oxyhemoglobin Sodium Potassium Chloride Carbon Dioxide BUN Creatinine Glucose POC Glucose 125 H Lactic Acid Calcium Phosphorus Magnesium Direct Bilirubin AST ALT Alkaline Phosphatase Lactate Dehydrogenase Troponin T C-Reactive Protein Total Protein Albumin Prealbumin Triglycerides Cholesterol LDL Cholesterol Direct HDL Cholesterol PTH Intact Urine pH Urine WBC (Auto) Urine Creatinine Urine Total Protein Fluid Total Protein Vancomycin Trough Rheumatoid Factor Complement C4 Miscellaneous Test Crossmatch See Detail 10/25/16 10/25/16 10/25/16 04:00 04:00 04:00 WBC 14.2 H RBC 2.98 L Hgb 9.0 L Hct 26.2 L MCV MCH MCHC RDW 16.6 H Plt Count Lymph % (Auto) Towns % (Auto) 10.7 H Lymph # Towns # 1.5 H Baso # Seg Neutrophils % 73.6 H Seg Neuts % (Manual) Lymphocytes % (Manual) Monocytes % (Manual) Eosinophils % (Manual) Basophils % (Manual) Nucleated RBC % Seg Neutrophils # 10.5 H Seg Neutrophils # Man Lymphocytes # (Manual) Monocytes # (Manual) Eosinophils # (Manual) Basophils # (Manual) PT INR Fibrinogen dRVVT Confirm Interp Factor V Activity POC ABG pH POC ABG pCO2 POC ABG pO2 ABG pO2 ABG HCO3 ABG Base Excess ABG Hemoglobin Oxyhemoglobin Sodium 132 L Potassium Chloride 94.7 L Carbon Dioxide BUN 51 H Creatinine 1.6 H Glucose 130 H POC Glucose Lactic Acid Calcium 8.3 L Phosphorus 1.60 L D Magnesium Direct Bilirubin AST ALT Alkaline Phosphatase Lactate Dehydrogenase Troponin T C-Reactive Protein Total Protein Albumin Prealbumin Triglycerides Cholesterol LDL Cholesterol Direct HDL Cholesterol PTH Intact Urine pH Urine WBC (Auto) Urine Creatinine Urine Total Protein Fluid Total Protein Vancomycin Trough Rheumatoid Factor Complement C4 Miscellaneous Test Crossmatch 10/25/16 10/25/16 10/25/16 04:32 11:48 17:22 WBC RBC Hgb Hct MCV MCH MCHC RDW Plt Count Lymph % (Auto) Towns % (Auto) Lymph # Towns # Baso # Seg Neutrophils % Seg Neuts % (Manual) Lymphocytes % (Manual) Monocytes % (Manual) Eosinophils % (Manual) Basophils % (Manual) Nucleated RBC % Seg Neutrophils # Seg Neutrophils # Man Lymphocytes # (Manual) Monocytes # (Manual) Eosinophils # (Manual) Basophils # (Manual) PT INR Fibrinogen dRVVT Confirm Interp Factor V Activity POC ABG pH POC ABG pCO2 POC ABG pO2 ABG pO2 ABG HCO3 ABG Base Excess ABG Hemoglobin Oxyhemoglobin Sodium Potassium Chloride Carbon Dioxide BUN Creatinine Glucose POC Glucose 124 H 171 H 120 H Lactic Acid Calcium Phosphorus Magnesium Direct Bilirubin AST ALT Alkaline Phosphatase Lactate Dehydrogenase Troponin T C-Reactive Protein Total Protein Albumin Prealbumin Triglycerides Cholesterol LDL Cholesterol Direct HDL Cholesterol PTH Intact Urine pH Urine WBC (Auto) Urine Creatinine Urine Total Protein Fluid Total Protein Vancomycin Trough Rheumatoid Factor Complement C4 Miscellaneous Test Crossmatch 10/26/16 10/26/16 10/26/16 04:54 07:06 07:06 WBC 16.9 H RBC 3.06 L Hgb 9.1 L Hct 26.9 L MCV MCH MCHC RDW 16.9 H Plt Count Lymph % (Auto) Towns % (Auto) Lymph # Towns # Baso # Seg Neutrophils % Seg Neuts % (Manual) 71.0 H Lymphocytes % (Manual) 5.0 L Monocytes % (Manual) 12.0 H Eosinophils % (Manual) Basophils % (Manual) Nucleated RBC % Seg Neutrophils # Seg Neutrophils # Man 12.0 H Lymphocytes # (Manual) 0.8 L Monocytes # (Manual) 2.0 H Eosinophils # (Manual) Basophils # (Manual) PT INR Fibrinogen dRVVT Confirm Interp Factor V Activity POC ABG pH POC ABG pCO2 POC ABG pO2 ABG pO2 ABG HCO3 ABG Base Excess ABG Hemoglobin Oxyhemoglobin Sodium 135 L Potassium Chloride 97.1 L Carbon Dioxide BUN 73 H Creatinine 2.2 H Glucose 117 H POC Glucose 123 H Lactic Acid Calcium Phosphorus 1.70 L Magnesium Direct Bilirubin AST ALT Alkaline Phosphatase Lactate Dehydrogenase Troponin T C-Reactive Protein Total Protein Albumin Prealbumin Triglycerides Cholesterol LDL Cholesterol Direct HDL Cholesterol PTH Intact Urine pH Urine WBC (Auto) Urine Creatinine Urine Total Protein Fluid Total Protein Vancomycin Trough Rheumatoid Factor Complement C4 Miscellaneous Test Crossmatch 10/26/16 10/26/16 10/26/16 12:12 17:29 23:42 WBC RBC Hgb Hct MCV MCH MCHC RDW Plt Count Lymph % (Auto) Towns % (Auto) Lymph # [place]s # Baso # Seg Neutrophils % Seg Neuts % (Manual) Lymphocytes % (Manual) Monocytes % (Manual) Eosinophils % (Manual) Basophils % (Manual) Nucleated RBC % Seg Neutrophils # Seg Neutrophils # Man Lymphocytes # (Manual) Monocytes # (Manual) Eosinophils # (Manual) Basophils # (Manual) PT INR Fibrinogen dRVVT Confirm Interp Factor V Activity POC ABG pH POC ABG pCO2 POC ABG pO2 ABG pO2 ABG HCO3 ABG Base Excess ABG Hemoglobin Oxyhemoglobin Sodium Potassium Chloride Carbon Dioxide BUN Creatinine Glucose POC Glucose 126 H 161 H 118 H Lactic Acid Calcium Phosphorus Magnesium Direct Bilirubin AST ALT Alkaline Phosphatase Lactate Dehydrogenase Troponin T C-Reactive Protein Total Protein Albumin Prealbumin Triglycerides Cholesterol LDL Cholesterol Direct HDL Cholesterol PTH Intact Urine pH Urine WBC (Auto) Urine Creatinine Urine Total Protein Fluid Total Protein Vancomycin Trough Rheumatoid Factor Complement C4 Miscellaneous Test Crossmatch 10/27/16 10/27/16 10/27/16 05:03 06:30 06:30 WBC 13.9 H RBC 3.09 L Hgb 9.2 L Hct 27.5 L MCV MCH MCHC RDW 17.0 H Plt Count Lymph % (Auto) Towns % (Auto) Lymph # [place] # Baso # Seg Neutrophils % Seg Neuts % (Manual) 78.0 H Lymphocytes % (Manual) Monocytes % (Manual) Eosinophils % (Manual) Basophils % (Manual) Nucleated RBC % 2.0 H Seg Neutrophils # Seg Neutrophils # Man 10.8 H Lymphocytes # (Manual) Monocytes # (Manual) 1.0 H Eosinophils # (Manual) Basophils # (Manual) PT INR Fibrinogen dRVVT Confirm Interp Factor V Activity POC ABG pH POC ABG pCO2 POC ABG pO2 ABG pO2 ABG HCO3 ABG Base Excess ABG Hemoglobin Oxyhemoglobin Sodium Potassium Chloride Carbon Dioxide BUN 40 H Creatinine 1.5 H Glucose 135 H POC Glucose 107 H Lactic Acid Calcium 8.3 L Phosphorus 1.30 L D Magnesium Direct Bilirubin AST ALT Alkaline Phosphatase Lactate Dehydrogenase Troponin T C-Reactive Protein Total Protein Albumin Prealbumin Triglycerides Cholesterol LDL Cholesterol Direct HDL Cholesterol PTH Intact Urine pH Urine WBC (Auto) Urine Creatinine Urine Total Protein Fluid Total Protein Vancomycin Trough Rheumatoid Factor Complement C4 Miscellaneous Test Crossmatch 10/27/16 10/27/16 10/27/16 13:27 18:07 23:40 WBC RBC Hgb Hct MCV MCH MCHC RDW Plt Count Lymph % (Auto) Towns % (Auto) Lymph # [place] # Baso # Seg Neutrophils % Seg Neuts % (Manual) Lymphocytes % (Manual) Monocytes % (Manual) Eosinophils % (Manual) Basophils % (Manual) Nucleated RBC % Seg Neutrophils # Seg Neutrophils # Man Lymphocytes # (Manual) Monocytes # (Manual) Eosinophils # (Manual) Basophils # (Manual) PT INR Fibrinogen dRVVT Confirm Interp Factor V Activity POC ABG pH POC ABG pCO2 POC ABG pO2 ABG pO2 ABG HCO3 ABG Base Excess ABG Hemoglobin Oxyhemoglobin Sodium Potassium Chloride Carbon Dioxide BUN Creatinine Glucose POC Glucose 117 H 121 H 118 H Lactic Acid Calcium Phosphorus Magnesium Direct Bilirubin AST ALT Alkaline Phosphatase Lactate Dehydrogenase Troponin T C-Reactive Protein Total Protein Albumin Prealbumin Triglycerides Cholesterol LDL Cholesterol Direct HDL Cholesterol PTH Intact Urine pH Urine WBC (Auto) Urine Creatinine Urine Total Protein Fluid Total Protein Vancomycin Trough Rheumatoid Factor Complement C4 Miscellaneous Test Crossmatch 10/28/16 10/28/16 10/28/16 05:48 06:45 06:45 WBC 14.7 H RBC 3.05 L Hgb 9.0 L Hct 26.9 L MCV MCH MCHC RDW 16.8 H Plt Count Lymph % (Auto) 8.2 L Towns % (Auto) 8.4 H Lymph # [place]s # 1.2 H Baso # Seg Neutrophils % 81.9 H Seg Neuts % (Manual) Lymphocytes % (Manual) Monocytes % (Manual) Eosinophils % (Manual) Basophils % (Manual) Nucleated RBC % Seg Neutrophils # 12.1 H Seg Neutrophils # Man Lymphocytes # (Manual) Monocytes # (Manual) Eosinophils # (Manual) Basophils # (Manual) PT INR Fibrinogen dRVVT Confirm Interp Factor V Activity POC ABG pH POC ABG pCO2 POC ABG pO2 ABG pO2 ABG HCO3 ABG Base Excess ABG Hemoglobin Oxyhemoglobin Sodium Potassium Chloride Carbon Dioxide BUN 60 H Creatinine 1.9 H Glucose 120 H POC Glucose 114 H Lactic Acid Calcium Phosphorus Magnesium Direct Bilirubin AST ALT Alkaline Phosphatase Lactate Dehydrogenase Troponin T C-Reactive Protein Total Protein Albumin Prealbumin Triglycerides Cholesterol LDL Cholesterol Direct HDL Cholesterol PTH Intact Urine pH Urine WBC (Auto) Urine Creatinine Urine Total Protein Fluid Total Protein Vancomycin Trough Rheumatoid Factor Complement C4 Miscellaneous Test Crossmatch 10/28/16 10/28/16 10/29/16 17:08 23:50 05:10 WBC RBC Hgb Hct MCV MCH MCHC RDW Plt Count Lymph % (Auto) Towns % (Auto) Lymph # [place] # Baso # Seg Neutrophils % Seg Neuts % (Manual) Lymphocytes % (Manual) Monocytes % (Manual) Eosinophils % (Manual) Basophils % (Manual) Nucleated RBC % Seg Neutrophils # Seg Neutrophils # Man Lymphocytes # (Manual) Monocytes # (Manual) Eosinophils # (Manual) Basophils # (Manual) PT INR Fibrinogen dRVVT Confirm Interp Factor V Activity POC ABG pH POC ABG pCO2 POC ABG pO2 ABG pO2 ABG HCO3 ABG Base Excess ABG Hemoglobin Oxyhemoglobin Sodium Potassium Chloride Carbon Dioxide BUN Creatinine Glucose POC Glucose 109 H 110 H 124 H Lactic Acid Calcium Phosphorus Magnesium Direct Bilirubin AST ALT Alkaline Phosphatase Lactate Dehydrogenase Troponin T C-Reactive Protein Total Protein Albumin Prealbumin Triglycerides Cholesterol LDL Cholesterol Direct HDL Cholesterol PTH Intact Urine pH Urine WBC (Auto) Urine Creatinine Urine Total Protein Fluid Total Protein Vancomycin Trough Rheumatoid Factor Complement C4 Miscellaneous Test Crossmatch 10/29/16 10/29/16 10/29/16 07:45 07:45 12:19 WBC 14.7 H RBC 3.15 L Hgb 9.3 L Hct 28.9 L MCV MCH MCHC RDW 17.0 H Plt Count Lymph % (Auto) 11.9 L Towns % (Auto) 8.6 H Lymph # [place]s # 1.3 H Baso # Seg Neutrophils % 78.1 H Seg Neuts % (Manual) Lymphocytes % (Manual) Monocytes % (Manual) Eosinophils % (Manual) Basophils % (Manual) Nucleated RBC % Seg Neutrophils # 11.4 H Seg Neutrophils # Man Lymphocytes # (Manual) Monocytes # (Manual) Eosinophils # (Manual) Basophils # (Manual) PT INR Fibrinogen dRVVT Confirm Interp Factor V Activity POC ABG pH POC ABG pCO2 POC ABG pO2 ABG pO2 ABG HCO3 ABG Base Excess ABG Hemoglobin Oxyhemoglobin Sodium Potassium 5.1 H Chloride Carbon Dioxide 19 L BUN 78 H Creatinine 2.2 H Glucose 116 H POC Glucose 118 H Lactic Acid Calcium Phosphorus Magnesium Direct Bilirubin AST ALT Alkaline Phosphatase Lactate Dehydrogenase Troponin T C-Reactive Protein Total Protein Albumin Prealbumin Triglycerides Cholesterol LDL Cholesterol Direct HDL Cholesterol PTH Intact Urine pH Urine WBC (Auto) Urine Creatinine Urine Total Protein Fluid Total Protein Vancomycin Trough Rheumatoid Factor Complement C4 Miscellaneous Test Crossmatch 10/29/16 10/30/16 10/30/16 17:49 01:52 03:28 WBC RBC Hgb Hct MCV MCH MCHC RDW Plt Count Lymph % (Auto) Towns % (Auto) Lymph # [place] # Baso # Seg Neutrophils % Seg Neuts % (Manual) Lymphocytes % (Manual) Monocytes % (Manual) Eosinophils % (Manual) Basophils % (Manual) Nucleated RBC % Seg Neutrophils # Seg Neutrophils # Man Lymphocytes # (Manual) Monocytes # (Manual) Eosinophils # (Manual) Basophils # (Manual) PT INR Fibrinogen dRVVT Confirm Interp Factor V Activity POC ABG pH POC ABG pCO2 POC ABG pO2 ABG pO2 ABG HCO3 ABG Base Excess ABG Hemoglobin Oxyhemoglobin Sodium Potassium 5.4 H Chloride 97.5 L Carbon Dioxide 19 L BUN 90 H Creatinine 2.5 H Glucose POC Glucose 120 H 129 H Lactic Acid Calcium Phosphorus 5.20 H Magnesium Direct Bilirubin AST ALT Alkaline Phosphatase Lactate Dehydrogenase Troponin T C-Reactive Protein Total Protein Albumin Prealbumin Triglycerides Cholesterol LDL Cholesterol Direct HDL Cholesterol PTH Intact Urine pH Urine WBC (Auto) Urine Creatinine Urine Total Protein Fluid Total Protein Vancomycin Trough Rheumatoid Factor Complement C4 Miscellaneous Test Crossmatch 10/30/16 10/30/16 10/30/16 03:28 08:19 08:19 WBC 11.6 H 15.9 H RBC 2.75 L 2.82 L Hgb 7.9 L 8.3 L Hct 24.2 L 25.2 L MCV MCH MCHC RDW 16.7 H 17.2 H Plt Count Lymph % (Auto) Towns % (Auto) 9.8 H Lymph # Towns # 1.1 H Baso # Seg Neutrophils % 74.2 H Seg Neuts % (Manual) Lymphocytes % (Manual) Monocytes % (Manual) Eosinophils % (Manual) Basophils % (Manual) Nucleated RBC % Seg Neutrophils # 8.6 H Seg Neutrophils # Man Lymphocytes # (Manual) Monocytes # (Manual) Eosinophils # (Manual) Basophils # (Manual) PT INR Fibrinogen dRVVT Confirm Interp Factor V Activity POC ABG pH POC ABG pCO2 POC ABG pO2 ABG pO2 ABG HCO3 ABG Base Excess ABG Hemoglobin Oxyhemoglobin Sodium Potassium 5.3 H Chloride 97.4 L Carbon Dioxide 19 L BUN 93 H Creatinine 2.6 H Glucose POC Glucose Lactic Acid Calcium Phosphorus Magnesium Direct Bilirubin AST ALT Alkaline Phosphatase Lactate Dehydrogenase Troponin T C-Reactive Protein Total Protein Albumin Prealbumin Triglycerides Cholesterol LDL Cholesterol Direct HDL Cholesterol PTH Intact Urine pH Urine WBC (Auto) Urine Creatinine Urine Total Protein Fluid Total Protein Vancomycin Trough Rheumatoid Factor Complement C4 Miscellaneous Test Crossmatch 10/30/16 10/30/16 10/31/16 17:11 23:56 00:40 WBC RBC Hgb Hct MCV MCH MCHC RDW Plt Count Lymph % (Auto) [place]s % (Auto) Lymph # [place] # Baso # Seg Neutrophils % Seg Neuts % (Manual) Lymphocytes % (Manual) Monocytes % (Manual) Eosinophils % (Manual) Basophils % (Manual) Nucleated RBC % Seg Neutrophils # Seg Neutrophils # Man Lymphocytes # (Manual) Monocytes # (Manual) Eosinophils # (Manual) Basophils # (Manual) PT INR Fibrinogen dRVVT Confirm Interp Factor V Activity POC ABG pH POC ABG pCO2 POC ABG pO2 ABG pO2 ABG HCO3 ABG Base Excess ABG Hemoglobin Oxyhemoglobin Sodium Potassium Chloride Carbon Dioxide BUN Creatinine Glucose POC Glucose 106 H 117 H 120 H Lactic Acid Calcium Phosphorus Magnesium Direct Bilirubin AST ALT Alkaline Phosphatase Lactate Dehydrogenase Troponin T C-Reactive Protein Total Protein Albumin Prealbumin Triglycerides Cholesterol LDL Cholesterol Direct HDL Cholesterol PTH Intact Urine pH Urine WBC (Auto) Urine Creatinine Urine Total Protein Fluid Total Protein Vancomycin Trough Rheumatoid Factor Complement C4 Miscellaneous Test Crossmatch 10/31/16 10/31/16 10/31/16 05:43 07:15 07:15 WBC 12.1 H RBC 2.63 L Hgb 7.7 L Hct 23.3 L MCV MCH MCHC RDW 16.7 H Plt Count Lymph % (Auto) 11.7 L Towns % (Auto) 7.7 H Lymph # [place] # 0.9 H Baso # Seg Neutrophils % 78.0 H Seg Neuts % (Manual) Lymphocytes % (Manual) Monocytes % (Manual) Eosinophils % (Manual) Basophils % (Manual) Nucleated RBC % Seg Neutrophils # 9.4 H Seg Neutrophils # Man Lymphocytes # (Manual) Monocytes # (Manual) Eosinophils # (Manual) Basophils # (Manual) PT INR Fibrinogen dRVVT Confirm Interp Factor V Activity POC ABG pH POC ABG pCO2 POC ABG pO2 ABG pO2 ABG HCO3 ABG Base Excess ABG Hemoglobin Oxyhemoglobin Sodium Potassium Chloride 96.4 L Carbon Dioxide 21 L BUN 99 H Creatinine 2.6 H Glucose 144 H POC Glucose 125 H Lactic Acid Calcium Phosphorus 4.80 H Magnesium Direct Bilirubin AST ALT Alkaline Phosphatase Lactate Dehydrogenase Troponin T C-Reactive Protein Total Protein Albumin Prealbumin Triglycerides Cholesterol LDL Cholesterol Direct HDL Cholesterol PTH Intact Urine pH Urine WBC (Auto) Urine Creatinine Urine Total Protein Fluid Total Protein Vancomycin Trough Rheumatoid Factor Complement C4 Miscellaneous Test Crossmatch 10/31/16 10/31/16 11/01/16 11:46 18:34 00:20 WBC RBC Hgb Hct MCV MCH MCHC RDW Plt Count Lymph % (Auto) Towns % (Auto) Lymph # [place] # Baso # Seg Neutrophils % Seg Neuts % (Manual) Lymphocytes % (Manual) Monocytes % (Manual) Eosinophils % (Manual) Basophils % (Manual) Nucleated RBC % Seg Neutrophils # Seg Neutrophils # Man Lymphocytes # (Manual) Monocytes # (Manual) Eosinophils # (Manual) Basophils # (Manual) PT INR Fibrinogen dRVVT Confirm Interp Factor V Activity POC ABG pH POC ABG pCO2 POC ABG pO2 ABG pO2 ABG HCO3 ABG Base Excess ABG Hemoglobin Oxyhemoglobin Sodium Potassium Chloride Carbon Dioxide BUN Creatinine Glucose POC Glucose 159 H 140 H 132 H Lactic Acid Calcium Phosphorus Magnesium Direct Bilirubin AST ALT Alkaline Phosphatase Lactate Dehydrogenase Troponin T C-Reactive Protein Total Protein Albumin Prealbumin Triglycerides Cholesterol LDL Cholesterol Direct HDL Cholesterol PTH Intact Urine pH Urine WBC (Auto) Urine Creatinine Urine Total Protein Fluid Total Protein Vancomycin Trough Rheumatoid Factor Complement C4 Miscellaneous Test Crossmatch 11/01/16 11/01/16 11/01/16 04:55 04:55 06:11 WBC 11.2 H RBC 2.68 L Hgb 7.5 L Hct 23.7 L MCV MCH MCHC RDW 16.1 H Plt Count Lymph % (Auto) Towns % (Auto) 9.8 H Lymph # [place]s # 1.1 H Baso # Seg Neutrophils % 70.8 H Seg Neuts % (Manual) Lymphocytes % (Manual) Monocytes % (Manual) Eosinophils % (Manual) Basophils % (Manual) Nucleated RBC % Seg Neutrophils # 7.9 H Seg Neutrophils # Man Lymphocytes # (Manual) Monocytes # (Manual) Eosinophils # (Manual) Basophils # (Manual) PT INR Fibrinogen dRVVT Confirm Interp Factor V Activity POC ABG pH POC ABG pCO2 POC ABG pO2 ABG pO2 ABG HCO3 ABG Base Excess ABG Hemoglobin Oxyhemoglobin Sodium Potassium 3.3 L D Chloride Carbon Dioxide BUN 61 H Creatinine 1.9 H Glucose 114 H POC Glucose 115 H Lactic Acid Calcium Phosphorus 1.80 L D Magnesium Direct Bilirubin AST ALT Alkaline Phosphatase Lactate Dehydrogenase Troponin T C-Reactive Protein Total Protein Albumin Prealbumin Triglycerides Cholesterol LDL Cholesterol Direct HDL Cholesterol PTH Intact Urine pH Urine WBC (Auto) Urine Creatinine Urine Total Protein Fluid Total Protein Vancomycin Trough Rheumatoid Factor Complement C4 Miscellaneous Test Crossmatch 11/01/16 11/01/16 11/01/16 12:29 18:23 23:58 WBC RBC Hgb Hct MCV MCH MCHC RDW Plt Count Lymph % (Auto) Towns % (Auto) Lymph # [place] # Baso # Seg Neutrophils % Seg Neuts % (Manual) Lymphocytes % (Manual) Monocytes % (Manual) Eosinophils % (Manual) Basophils % (Manual) Nucleated RBC % Seg Neutrophils # Seg Neutrophils # Man Lymphocytes # (Manual) Monocytes # (Manual) Eosinophils # (Manual) Basophils # (Manual) PT INR Fibrinogen dRVVT Confirm Interp Factor V Activity POC ABG pH POC ABG pCO2 POC ABG pO2 ABG pO2 ABG HCO3 ABG Base Excess ABG Hemoglobin Oxyhemoglobin Sodium Potassium Chloride Carbon Dioxide BUN Creatinine Glucose POC Glucose 142 H 143 H 128 H Lactic Acid Calcium Phosphorus Magnesium Direct Bilirubin AST ALT Alkaline Phosphatase Lactate Dehydrogenase Troponin T C-Reactive Protein Total Protein Albumin Prealbumin Triglycerides Cholesterol LDL Cholesterol Direct HDL Cholesterol PTH Intact Urine pH Urine WBC (Auto) Urine Creatinine Urine Total Protein Fluid Total Protein Vancomycin Trough Rheumatoid Factor Complement C4 Miscellaneous Test Crossmatch 11/02/16 11/02/16 11/02/16 04:16 05:29 11:58 WBC RBC Hgb Hct MCV MCH MCHC RDW Plt Count Lymph % (Auto) Towns % (Auto) Lymph # [place] # Baso # Seg Neutrophils % Seg Neuts % (Manual) Lymphocytes % (Manual) Monocytes % (Manual) Eosinophils % (Manual) Basophils % (Manual) Nucleated RBC % Seg Neutrophils # Seg Neutrophils # Man Lymphocytes # (Manual) Monocytes # (Manual) Eosinophils # (Manual) Basophils # (Manual) PT INR Fibrinogen dRVVT Confirm Interp Factor V Activity POC ABG pH POC ABG pCO2 POC ABG pO2 ABG pO2 ABG HCO3 ABG Base Excess ABG Hemoglobin Oxyhemoglobin Sodium Potassium 3.1 L Chloride Carbon Dioxide BUN 73 H Creatinine 2.3 H Glucose 112 H POC Glucose 135 H 149 H Lactic Acid Calcium Phosphorus Magnesium Direct Bilirubin AST ALT Alkaline Phosphatase Lactate Dehydrogenase Troponin T C-Reactive Protein Total Protein Albumin Prealbumin Triglycerides Cholesterol LDL Cholesterol Direct HDL Cholesterol PTH Intact Urine pH Urine WBC (Auto) Urine Creatinine Urine Total Protein Fluid Total Protein Vancomycin Trough Rheumatoid Factor Complement C4 Miscellaneous Test Crossmatch 11/02/16 11/02/16 11/03/16 17:42 22:54 06:00 WBC RBC Hgb Hct MCV MCH MCHC RDW Plt Count Lymph % (Auto) Towns % (Auto) Lymph # [place] # Baso # Seg Neutrophils % Seg Neuts % (Manual) Lymphocytes % (Manual) Monocytes % (Manual) Eosinophils % (Manual) Basophils % (Manual) Nucleated RBC % Seg Neutrophils # Seg Neutrophils # Man Lymphocytes # (Manual) Monocytes # (Manual) Eosinophils # (Manual) Basophils # (Manual) PT INR Fibrinogen dRVVT Confirm Interp Factor V Activity POC ABG pH POC ABG pCO2 POC ABG pO2 ABG pO2 ABG HCO3 ABG Base Excess ABG Hemoglobin Oxyhemoglobin Sodium Potassium Chloride 96.7 L Carbon Dioxide BUN 41 H Creatinine 1.5 H Glucose 145 H POC Glucose 182 H 115 H Lactic Acid Calcium Phosphorus 1.60 L D Magnesium 1.50 L Direct Bilirubin AST ALT Alkaline Phosphatase Lactate Dehydrogenase Troponin T C-Reactive Protein Total Protein Albumin Prealbumin Triglycerides Cholesterol LDL Cholesterol Direct HDL Cholesterol PTH Intact Urine pH Urine WBC (Auto) Urine Creatinine Urine Total Protein Fluid Total Protein Vancomycin Trough Rheumatoid Factor Complement C4 Miscellaneous Test Crossmatch 11/03/16 11/03/16 11/03/16 11:53 17:45 23:37 WBC RBC Hgb Hct MCV MCH MCHC RDW Plt Count Lymph % (Auto) Towns % (Auto) Lymph # [place] # Baso # Seg Neutrophils % Seg Neuts % (Manual) Lymphocytes % (Manual) Monocytes % (Manual) Eosinophils % (Manual) Basophils % (Manual) Nucleated RBC % Seg Neutrophils # Seg Neutrophils # Man Lymphocytes # (Manual) Monocytes # (Manual) Eosinophils # (Manual) Basophils # (Manual) PT INR Fibrinogen dRVVT Confirm Interp Factor V Activity POC ABG pH POC ABG pCO2 POC ABG pO2 ABG pO2 ABG HCO3 ABG Base Excess ABG Hemoglobin Oxyhemoglobin Sodium Potassium Chloride Carbon Dioxide BUN Creatinine Glucose POC Glucose 131 H 134 H 113 H Lactic Acid Calcium Phosphorus Magnesium Direct Bilirubin AST ALT Alkaline Phosphatase Lactate Dehydrogenase Troponin T C-Reactive Protein Total Protein Albumin Prealbumin Triglycerides Cholesterol LDL Cholesterol Direct HDL Cholesterol PTH Intact Urine pH Urine WBC (Auto) Urine Creatinine Urine Total Protein Fluid Total Protein Vancomycin Trough Rheumatoid Factor Complement C4 Miscellaneous Test Crossmatch 11/04/16 11/04/16 11/04/16 05:41 06:00 12:10 WBC RBC Hgb Hct MCV MCH MCHC RDW Plt Count Lymph % (Auto) Towns % (Auto) Lymph # Towns # Baso # Seg Neutrophils % Seg Neuts % (Manual) Lymphocytes % (Manual) Monocytes % (Manual) Eosinophils % (Manual) Basophils % (Manual) Nucleated RBC % Seg Neutrophils # Seg Neutrophils # Man Lymphocytes # (Manual) Monocytes # (Manual) Eosinophils # (Manual) Basophils # (Manual) PT INR Fibrinogen dRVVT Confirm Interp Factor V Activity POC ABG pH POC ABG pCO2 POC ABG pO2 ABG pO2 ABG HCO3 ABG Base Excess ABG Hemoglobin Oxyhemoglobin Sodium Potassium Chloride 96.7 L Carbon Dioxide BUN 52 H Creatinine 1.9 H Glucose 126 H POC Glucose 137 H 191 H Lactic Acid Calcium Phosphorus Magnesium Direct Bilirubin AST ALT Alkaline Phosphatase Lactate Dehydrogenase Troponin T C-Reactive Protein Total Protein Albumin Prealbumin Triglycerides Cholesterol LDL Cholesterol Direct HDL Cholesterol PTH Intact Urine pH Urine WBC (Auto) Urine Creatinine Urine Total Protein Fluid Total Protein Vancomycin Trough Rheumatoid Factor Complement C4 Miscellaneous Test Crossmatch 11/04/16 11/05/16 11/05/16 22:57 03:10 05:10 WBC RBC Hgb Hct MCV MCH MCHC RDW Plt Count Lymph % (Auto) Towns % (Auto) Lymph # Towns # Baso # Seg Neutrophils % Seg Neuts % (Manual) Lymphocytes % (Manual) Monocytes % (Manual) Eosinophils % (Manual) Basophils % (Manual) Nucleated RBC % Seg Neutrophils # Seg Neutrophils # Man Lymphocytes # (Manual) Monocytes # (Manual) Eosinophils # (Manual) Basophils # (Manual) PT INR Fibrinogen dRVVT Confirm Interp Factor V Activity POC ABG pH POC ABG pCO2 POC ABG pO2 ABG pO2 ABG HCO3 ABG Base Excess ABG Hemoglobin Oxyhemoglobin Sodium 136 L Potassium Chloride 97.2 L Carbon Dioxide BUN 32 H Creatinine 1.3 H Glucose 123 H POC Glucose 125 H 108 H Lactic Acid Calcium 7.8 L Phosphorus Magnesium Direct Bilirubin AST ALT Alkaline Phosphatase Lactate Dehydrogenase Troponin T C-Reactive Protein Total Protein Albumin Prealbumin Triglycerides Cholesterol LDL Cholesterol Direct HDL Cholesterol PTH Intact Urine pH Urine WBC (Auto) Urine Creatinine Urine Total Protein Fluid Total Protein Vancomycin Trough Rheumatoid Factor Complement C4 Miscellaneous Test Crossmatch 11/05/16 11/05/16 11/05/16 12:23 13:09 13:25 WBC RBC Hgb Hct MCV MCH MCHC RDW Plt Count Lymph % (Auto) Towns % (Auto) Lymph # Towns # Baso # Seg Neutrophils % Seg Neuts % (Manual) Lymphocytes % (Manual) Monocytes % (Manual) Eosinophils % (Manual) Basophils % (Manual) Nucleated RBC % Seg Neutrophils # Seg Neutrophils # Man Lymphocytes # (Manual) Monocytes # (Manual) Eosinophils # (Manual) Basophils # (Manual) PT INR Fibrinogen dRVVT Confirm Interp Factor V Activity POC ABG pH POC ABG pCO2 POC ABG pO2 ABG pO2 ABG HCO3 ABG Base Excess ABG Hemoglobin Oxyhemoglobin Sodium Potassium Chloride Carbon Dioxide BUN Creatinine Glucose POC Glucose 124 H Lactic Acid Calcium Phosphorus Magnesium Direct Bilirubin AST ALT Alkaline Phosphatase Lactate Dehydrogenase Troponin T C-Reactive Protein 11.40 H Total Protein Albumin Prealbumin Triglycerides Cholesterol LDL Cholesterol Direct HDL Cholesterol PTH Intact Urine pH 9.0 H Urine WBC (Auto) Urine Creatinine Urine Total Protein Fluid Total Protein Vancomycin Trough Rheumatoid Factor Complement C4 Miscellaneous Test Crossmatch 11/05/16 11/05/16 11/05/16 13:25 17:54 23:42 WBC RBC Hgb Hct MCV MCH MCHC RDW Plt Count Lymph % (Auto) Towns % (Auto) Lymph # [place] # Baso # Seg Neutrophils % Seg Neuts % (Manual) Lymphocytes % (Manual) Monocytes % (Manual) Eosinophils % (Manual) Basophils % (Manual) Nucleated RBC % Seg Neutrophils # Seg Neutrophils # Man Lymphocytes # (Manual) Monocytes # (Manual) Eosinophils # (Manual) Basophils # (Manual) PT INR Fibrinogen dRVVT Confirm Interp Factor V Activity POC ABG pH POC ABG pCO2 POC ABG pO2 ABG pO2 ABG HCO3 ABG Base Excess ABG Hemoglobin Oxyhemoglobin Sodium Potassium Chloride Carbon Dioxide BUN Creatinine Glucose POC Glucose 114 H 134 H Lactic Acid Calcium Phosphorus Magnesium Direct Bilirubin AST ALT Alkaline Phosphatase Lactate Dehydrogenase Troponin T C-Reactive Protein Total Protein Albumin Prealbumin Triglycerides Cholesterol LDL Cholesterol Direct HDL Cholesterol PTH Intact Urine pH Urine WBC (Auto) Urine Creatinine Urine Total Protein Fluid Total Protein Vancomycin Trough Rheumatoid Factor Complement C4 Miscellaneous Test Flexitest 1 H Crossmatch 11/06/16 11/06/16 11/06/16 04:56 06:25 06:25 WBC RBC 2.50 L Hgb 7.3 L Hct 22.5 L MCV MCH MCHC RDW 16.9 H Plt Count Lymph % (Auto) Towns % (Auto) 10.5 H Lymph # Towns # 1.1 H Baso # Seg Neutrophils % Seg Neuts % (Manual) Lymphocytes % (Manual) Monocytes % (Manual) Eosinophils % (Manual) Basophils % (Manual) Nucleated RBC % Seg Neutrophils # Seg Neutrophils # Man Lymphocytes # (Manual) Monocytes # (Manual) Eosinophils # (Manual) Basophils # (Manual) PT INR Fibrinogen dRVVT Confirm Interp Factor V Activity POC ABG pH POC ABG pCO2 POC ABG pO2 ABG pO2 ABG HCO3 ABG Base Excess ABG Hemoglobin Oxyhemoglobin Sodium Potassium 5.1 H Chloride 95.9 L Carbon Dioxide BUN 52 H Creatinine 1.8 H Glucose 117 H POC Glucose 120 H Lactic Acid Calcium Phosphorus Magnesium Direct Bilirubin AST 103 H ALT 77 H Alkaline Phosphatase 285 H Lactate Dehydrogenase Troponin T C-Reactive Protein Total Protein 6.2 L Albumin 1.8 L Prealbumin 0.180 L Triglycerides Cholesterol LDL Cholesterol Direct HDL Cholesterol PTH Intact Urine pH Urine WBC (Auto) Urine Creatinine Urine Total Protein Fluid Total Protein Vancomycin Trough Rheumatoid Factor Complement C4 Miscellaneous Test Crossmatch 11/06/16 11/06/16 11/06/16 11:56 17:14 23:52 WBC RBC Hgb Hct MCV MCH MCHC RDW Plt Count Lymph % (Auto) Towns % (Auto) Lymph # [place] # Baso # Seg Neutrophils % Seg Neuts % (Manual) Lymphocytes % (Manual) Monocytes % (Manual) Eosinophils % (Manual) Basophils % (Manual) Nucleated RBC % Seg Neutrophils # Seg Neutrophils # Man Lymphocytes # (Manual) Monocytes # (Manual) Eosinophils # (Manual) Basophils # (Manual) PT INR Fibrinogen dRVVT Confirm Interp Factor V Activity POC ABG pH POC ABG pCO2 POC ABG pO2 ABG pO2 ABG HCO3 ABG Base Excess ABG Hemoglobin Oxyhemoglobin Sodium Potassium Chloride Carbon Dioxide BUN Creatinine Glucose POC Glucose 141 H 125 H 130 H Lactic Acid Calcium Phosphorus Magnesium Direct Bilirubin AST ALT Alkaline Phosphatase Lactate Dehydrogenase Troponin T C-Reactive Protein Total Protein Albumin Prealbumin Triglycerides Cholesterol LDL Cholesterol Direct HDL Cholesterol PTH Intact Urine pH Urine WBC (Auto) Urine Creatinine Urine Total Protein Fluid Total Protein Vancomycin Trough Rheumatoid Factor Complement C4 Miscellaneous Test Crossmatch 11/07/16 11/07/16 11/07/16 06:30 06:30 09:37 WBC RBC 2.18 L Hgb 6.3 L Hct 19.7 L* MCV MCH MCHC RDW 16.8 H Plt Count Lymph % (Auto) [place]s % (Auto) 10.0 H Lymph # [place]s # 1.0 H Baso # Seg Neutrophils % Seg Neuts % (Manual) Lymphocytes % (Manual) Monocytes % (Manual) Eosinophils % (Manual) Basophils % (Manual) Nucleated RBC % Seg Neutrophils # Seg Neutrophils # Man Lymphocytes # (Manual) Monocytes # (Manual) Eosinophils # (Manual) Basophils # (Manual) PT INR Fibrinogen dRVVT Confirm Interp Factor V Activity POC ABG pH POC ABG pCO2 POC ABG pO2 ABG pO2 ABG HCO3 ABG Base Excess ABG Hemoglobin Oxyhemoglobin Sodium 135 L Potassium Chloride 95.6 L Carbon Dioxide BUN 70 H Creatinine 2.0 H Glucose 126 H POC Glucose Lactic Acid Calcium Phosphorus Magnesium Direct Bilirubin AST ALT Alkaline Phosphatase Lactate Dehydrogenase Troponin T C-Reactive Protein Total Protein Albumin Prealbumin Triglycerides Cholesterol LDL Cholesterol Direct HDL Cholesterol PTH Intact Urine pH Urine WBC (Auto) Urine Creatinine Urine Total Protein Fluid Total Protein Vancomycin Trough Rheumatoid Factor Complement C4 Miscellaneous Test Crossmatch See Detail 11/07/16 11/07/16 11/07/16 12:52 18:51 21:26 WBC RBC Hgb Hct MCV MCH MCHC RDW Plt Count Lymph % (Auto) [place]s % (Auto) Lymph # [place] # Baso # Seg Neutrophils % Seg Neuts % (Manual) Lymphocytes % (Manual) Monocytes % (Manual) Eosinophils % (Manual) Basophils % (Manual) Nucleated RBC % Seg Neutrophils # Seg Neutrophils # Man Lymphocytes # (Manual) Monocytes # (Manual) Eosinophils # (Manual) Basophils # (Manual) PT INR Fibrinogen dRVVT Confirm Interp Factor V Activity POC ABG pH 7.523 H POC ABG pCO2 34.6 L POC ABG pO2 53 L ABG pO2 ABG HCO3 ABG Base Excess ABG Hemoglobin Oxyhemoglobin Sodium Potassium Chloride Carbon Dioxide BUN Creatinine Glucose POC Glucose 142 H 155 H Lactic Acid Calcium Phosphorus Magnesium Direct Bilirubin AST ALT Alkaline Phosphatase Lactate Dehydrogenase Troponin T C-Reactive Protein Total Protein Albumin Prealbumin Triglycerides Cholesterol LDL Cholesterol Direct HDL Cholesterol PTH Intact Urine pH Urine WBC (Auto) Urine Creatinine Urine Total Protein Fluid Total Protein Vancomycin Trough Rheumatoid Factor Complement C4 Miscellaneous Test Crossmatch 11/07/16 11/08/16 11/08/16 21:34 13:03 23:37 WBC RBC 2.63 L Hgb 7.7 L Hct 22.7 L MCV MCH MCHC RDW 17.0 H Plt Count Lymph % (Auto) [place]s % (Auto) Lymph # [place] # Baso # Seg Neutrophils % Seg Neuts % (Manual) Lymphocytes % (Manual) Monocytes % (Manual) Eosinophils % (Manual) Basophils % (Manual) Nucleated RBC % Seg Neutrophils # Seg Neutrophils # Man Lymphocytes # (Manual) Monocytes # (Manual) Eosinophils # (Manual) Basophils # (Manual) PT INR Fibrinogen dRVVT Confirm Interp Factor V Activity POC ABG pH 7.478 H POC ABG pCO2 34.0 L POC ABG pO2 50 L ABG pO2 ABG HCO3 ABG Base Excess ABG Hemoglobin Oxyhemoglobin Sodium Potassium Chloride Carbon Dioxide BUN Creatinine Glucose POC Glucose 113 H Lactic Acid Calcium Phosphorus Magnesium Direct Bilirubin AST ALT Alkaline Phosphatase Lactate Dehydrogenase Troponin T C-Reactive Protein Total Protein Albumin Prealbumin Triglycerides Cholesterol LDL Cholesterol Direct HDL Cholesterol PTH Intact Urine pH Urine WBC (Auto) Urine Creatinine Urine Total Protein Fluid Total Protein Vancomycin Trough Rheumatoid Factor Complement C4 Miscellaneous Test Crossmatch 11/09/16 11/09/16 11/09/16 04:35 10:15 18:21 WBC RBC 2.68 L Hgb 7.8 L Hct 23.3 L MCV MCH MCHC RDW 17.0 H Plt Count Lymph % (Auto) [place]s % (Auto) 12.1 H Lymph # [place] # 1.1 H Baso # Seg Neutrophils % Seg Neuts % (Manual) Lymphocytes % (Manual) Monocytes % (Manual) Eosinophils % (Manual) Basophils % (Manual) Nucleated RBC % Seg Neutrophils # Seg Neutrophils # Man Lymphocytes # (Manual) Monocytes # (Manual) Eosinophils # (Manual) Basophils # (Manual) PT INR Fibrinogen dRVVT Confirm Interp Factor V Activity POC ABG pH POC ABG pCO2 POC ABG pO2 ABG pO2 ABG HCO3 ABG Base Excess ABG Hemoglobin Oxyhemoglobin Sodium Potassium Chloride Carbon Dioxide BUN 51 H Creatinine 1.8 H Glucose POC Glucose 60 L Lactic Acid Calcium 8.3 L Phosphorus Magnesium Direct Bilirubin AST ALT Alkaline Phosphatase Lactate Dehydrogenase Troponin T C-Reactive Protein Total Protein Albumin Prealbumin Triglycerides Cholesterol LDL Cholesterol Direct HDL Cholesterol PTH Intact Urine pH Urine WBC (Auto) Urine Creatinine Urine Total Protein Fluid Total Protein Vancomycin Trough Rheumatoid Factor Complement C4 Miscellaneous Test Crossmatch 11/09/16 11/10/16 11/10/16 18:55 07:00 11:51 WBC RBC Hgb Hct MCV MCH MCHC RDW Plt Count Lymph % (Auto) [place]s % (Auto) Lymph # [place] # Baso # Seg Neutrophils % Seg Neuts % (Manual) Lymphocytes % (Manual) Monocytes % (Manual) Eosinophils % (Manual) Basophils % (Manual) Nucleated RBC % Seg Neutrophils # Seg Neutrophils # Man Lymphocytes # (Manual) Monocytes # (Manual) Eosinophils # (Manual) Basophils # (Manual) PT INR Fibrinogen dRVVT Confirm Interp Factor V Activity POC ABG pH POC ABG pCO2 POC ABG pO2 ABG pO2 ABG HCO3 ABG Base Excess ABG Hemoglobin Oxyhemoglobin Sodium Potassium 3.0 L D Chloride 97.4 L Carbon Dioxide BUN 28 H Creatinine 1.3 H Glucose POC Glucose 68 L 120 H Lactic Acid Calcium 7.8 L Phosphorus Magnesium Direct Bilirubin AST ALT Alkaline Phosphatase Lactate Dehydrogenase Troponin T C-Reactive Protein Total Protein Albumin Prealbumin Triglycerides Cholesterol LDL Cholesterol Direct HDL Cholesterol PTH Intact Urine pH Urine WBC (Auto) Urine Creatinine Urine Total Protein Fluid Total Protein Vancomycin Trough Rheumatoid Factor Complement C4 Miscellaneous Test Crossmatch 11/10/16 11/11/16 11/11/16 14:20 06:59 06:59 WBC RBC 2.81 L Hgb 8.1 L Hct 24.4 L MCV MCH MCHC RDW 16.4 H Plt Count Lymph % (Auto) [place]s % (Auto) 10.8 H Lymph # [place] # 1.0 H Baso # Seg Neutrophils % Seg Neuts % (Manual) Lymphocytes % (Manual) Monocytes % (Manual) Eosinophils % (Manual) Basophils % (Manual) Nucleated RBC % Seg Neutrophils # Seg Neutrophils # Man Lymphocytes # (Manual) Monocytes # (Manual) Eosinophils # (Manual) Basophils # (Manual) PT INR Fibrinogen dRVVT Confirm Interp Factor V Activity POC ABG pH POC ABG pCO2 POC ABG pO2 ABG pO2 ABG HCO3 ABG Base Excess ABG Hemoglobin Oxyhemoglobin Sodium Potassium Chloride Carbon Dioxide BUN Creatinine Glucose POC Glucose Lactic Acid Calcium Phosphorus Magnesium Direct Bilirubin AST ALT Alkaline Phosphatase Lactate Dehydrogenase 196 H Troponin T C-Reactive Protein Total Protein 6.1 L Albumin Prealbumin Triglycerides Cholesterol LDL Cholesterol Direct HDL Cholesterol PTH Intact Urine pH Urine WBC (Auto) Urine Creatinine Urine Total Protein Fluid Total Protein < 3.0 L Vancomycin Trough Rheumatoid Factor Complement C4 Miscellaneous Test Crossmatch 11/11/16 11/11/16 11/12/16 06:59 09:50 04:00 WBC RBC Hgb Hct MCV MCH MCHC RDW Plt Count Lymph % (Auto) [place] % (Auto) Lymph # [place] # Baso # Seg Neutrophils % Seg Neuts % (Manual) Lymphocytes % (Manual) Monocytes % (Manual) Eosinophils % (Manual) Basophils % (Manual) Nucleated RBC % Seg Neutrophils # Seg Neutrophils # Man Lymphocytes # (Manual) Monocytes # (Manual) Eosinophils # (Manual) Basophils # (Manual) PT INR 1.18 H Fibrinogen dRVVT Confirm Interp Factor V Activity POC ABG pH POC ABG pCO2 POC ABG pO2 ABG pO2 ABG HCO3 ABG Base Excess ABG Hemoglobin Oxyhemoglobin Sodium 136 L 133 L Potassium Chloride 96.1 L 94.8 L Carbon Dioxide 21 L BUN 37 H 42 H Creatinine 1.8 H 2.0 H Glucose POC Glucose Lactic Acid Calcium Phosphorus Magnesium Direct Bilirubin AST ALT Alkaline Phosphatase Lactate Dehydrogenase Troponin T C-Reactive Protein Total Protein Albumin Prealbumin Triglycerides Cholesterol LDL Cholesterol Direct HDL Cholesterol PTH Intact Urine pH Urine WBC (Auto) Urine Creatinine Urine Total Protein Fluid Total Protein Vancomycin Trough Rheumatoid Factor Complement C4 Miscellaneous Test Crossmatch 11/12/16 11/12/16 11/13/16 04:00 23:55 05:53 WBC RBC Hgb 8.9 L Hct 27.2 L MCV MCH MCHC RDW Plt Count Lymph % (Auto) [place] % (Auto) Lymph # [place] # Baso # Seg Neutrophils % Seg Neuts % (Manual) Lymphocytes % (Manual) Monocytes % (Manual) Eosinophils % (Manual) Basophils % (Manual) Nucleated RBC % Seg Neutrophils # Seg Neutrophils # Man Lymphocytes # (Manual) Monocytes # (Manual) Eosinophils # (Manual) Basophils # (Manual) PT INR Fibrinogen dRVVT Confirm Interp Factor V Activity POC ABG pH POC ABG pCO2 POC ABG pO2 ABG pO2 ABG HCO3 ABG Base Excess ABG Hemoglobin Oxyhemoglobin Sodium Potassium Chloride Carbon Dioxide BUN Creatinine Glucose POC Glucose 132 H 120 H Lactic Acid Calcium Phosphorus Magnesium Direct Bilirubin AST ALT Alkaline Phosphatase Lactate Dehydrogenase Troponin T C-Reactive Protein Total Protein Albumin Prealbumin Triglycerides Cholesterol LDL Cholesterol Direct HDL Cholesterol PTH Intact Urine pH Urine WBC (Auto) Urine Creatinine Urine Total Protein Fluid Total Protein Vancomycin Trough Rheumatoid Factor Complement C4 Miscellaneous Test Crossmatch 11/13/16 11/13/16 11/13/16 11:43 17:09 23:41 WBC RBC Hgb Hct MCV MCH MCHC RDW Plt Count Lymph % (Auto) [place]s % (Auto) Lymph # [place] # Baso # Seg Neutrophils % Seg Neuts % (Manual) Lymphocytes % (Manual) Monocytes % (Manual) Eosinophils % (Manual) Basophils % (Manual) Nucleated RBC % Seg Neutrophils # Seg Neutrophils # Man Lymphocytes # (Manual) Monocytes # (Manual) Eosinophils # (Manual) Basophils # (Manual) PT INR Fibrinogen dRVVT Confirm Interp Factor V Activity POC ABG pH POC ABG pCO2 POC ABG pO2 ABG pO2 ABG HCO3 ABG Base Excess ABG Hemoglobin Oxyhemoglobin Sodium Potassium Chloride Carbon Dioxide BUN Creatinine Glucose POC Glucose 114 H 113 H 108 H Lactic Acid Calcium Phosphorus Magnesium Direct Bilirubin AST ALT Alkaline Phosphatase Lactate Dehydrogenase Troponin T C-Reactive Protein Total Protein Albumin Prealbumin Triglycerides Cholesterol LDL Cholesterol Direct HDL Cholesterol PTH Intact Urine pH Urine WBC (Auto) Urine Creatinine Urine Total Protein Fluid Total Protein Vancomycin Trough Rheumatoid Factor Complement C4 Miscellaneous Test Crossmatch 11/13/16 11/15/16 11/15/16 Unknown 00:37 03:30 WBC 11.2 H RBC 2.72 L Hgb 7.6 L Hct 23.4 L MCV MCH MCHC RDW 16.5 H Plt Count Lymph % (Auto) [place] % (Auto) Lymph # [place] # Baso # Seg Neutrophils % Seg Neuts % (Manual) Lymphocytes % (Manual) Monocytes % (Manual) Eosinophils % (Manual) Basophils % (Manual) Nucleated RBC % Seg Neutrophils # Seg Neutrophils # Man Lymphocytes # (Manual) Monocytes # (Manual) Eosinophils # (Manual) Basophils # (Manual) PT INR Fibrinogen dRVVT Confirm Interp Factor V Activity POC ABG pH POC ABG pCO2 POC ABG pO2 ABG pO2 ABG HCO3 ABG Base Excess ABG Hemoglobin Oxyhemoglobin Sodium 135 L Potassium Chloride 95.2 L Carbon Dioxide BUN 52 H Creatinine 2.2 H Glucose POC Glucose 108 H Lactic Acid Calcium Phosphorus Magnesium Direct Bilirubin AST ALT Alkaline Phosphatase Lactate Dehydrogenase Troponin T C-Reactive Protein Total Protein Albumin Prealbumin Triglycerides Cholesterol LDL Cholesterol Direct HDL Cholesterol PTH Intact Urine pH Urine WBC (Auto) Urine Creatinine Urine Total Protein Fluid Total Protein Vancomycin Trough Rheumatoid Factor Complement C4 Miscellaneous Test Crossmatch 11/15/16 11/15/16 11/15/16 03:30 05:04 11:50 WBC RBC Hgb Hct MCV MCH MCHC RDW Plt Count Lymph % (Auto) [place] % (Auto) Lymph # [place] # Baso # Seg Neutrophils % Seg Neuts % (Manual) Lymphocytes % (Manual) Monocytes % (Manual) Eosinophils % (Manual) Basophils % (Manual) Nucleated RBC % Seg Neutrophils # Seg Neutrophils # Man Lymphocytes # (Manual) Monocytes # (Manual) Eosinophils # (Manual) Basophils # (Manual) PT INR Fibrinogen dRVVT Confirm Interp Factor V Activity POC ABG pH POC ABG pCO2 POC ABG pO2 ABG pO2 ABG HCO3 ABG Base Excess ABG Hemoglobin Oxyhemoglobin Sodium Potassium 3.4 L Chloride Carbon Dioxide BUN 25 H Creatinine 1.5 H Glucose 103 H POC Glucose 121 H 144 H Lactic Acid Calcium Phosphorus Magnesium Direct Bilirubin AST ALT Alkaline Phosphatase Lactate Dehydrogenase Troponin T C-Reactive Protein Total Protein Albumin Prealbumin Triglycerides Cholesterol LDL Cholesterol Direct HDL Cholesterol PTH Intact Urine pH Urine WBC (Auto) Urine Creatinine Urine Total Protein Fluid Total Protein Vancomycin Trough Rheumatoid Factor Complement C4 Miscellaneous Test Crossmatch 11/15/16 11/15/16 11/16/16 21:28 23:20 11:44 WBC RBC Hgb Hct MCV MCH MCHC RDW Plt Count Lymph % (Auto) [place] % (Auto) Lymph # [place] # Baso # Seg Neutrophils % Seg Neuts % (Manual) Lymphocytes % (Manual) Monocytes % (Manual) Eosinophils % (Manual) Basophils % (Manual) Nucleated RBC % Seg Neutrophils # Seg Neutrophils # Man Lymphocytes # (Manual) Monocytes # (Manual) Eosinophils # (Manual) Basophils # (Manual) PT INR Fibrinogen dRVVT Confirm Interp Factor V Activity POC ABG pH 7.462 H POC ABG pCO2 POC ABG pO2 71 L ABG pO2 ABG HCO3 ABG Base Excess ABG Hemoglobin Oxyhemoglobin Sodium Potassium Chloride Carbon Dioxide BUN Creatinine Glucose POC Glucose 116 H 133 H Lactic Acid Calcium Phosphorus Magnesium Direct Bilirubin AST ALT Alkaline Phosphatase Lactate Dehydrogenase Troponin T C-Reactive Protein Total Protein Albumin Prealbumin Triglycerides Cholesterol LDL Cholesterol Direct HDL Cholesterol PTH Intact Urine pH Urine WBC (Auto) Urine Creatinine Urine Total Protein Fluid Total Protein Vancomycin Trough Rheumatoid Factor Complement C4 Miscellaneous Test Crossmatch 11/16/16 11/16/16 11/16/16 12:20 17:05 23:35 WBC 11.7 H RBC 2.73 L Hgb 7.6 L Hct 23.7 L MCV MCH MCHC RDW 16.6 H Plt Count Lymph % (Auto) [place]s % (Auto) Lymph # [place] # Baso # Seg Neutrophils % Seg Neuts % (Manual) Lymphocytes % (Manual) Monocytes % (Manual) Eosinophils % (Manual) Basophils % (Manual) Nucleated RBC % Seg Neutrophils # Seg Neutrophils # Man Lymphocytes # (Manual) Monocytes # (Manual) Eosinophils # (Manual) Basophils # (Manual) PT INR Fibrinogen dRVVT Confirm Interp Factor V Activity POC ABG pH POC ABG pCO2 POC ABG pO2 ABG pO2 ABG HCO3 ABG Base Excess ABG Hemoglobin Oxyhemoglobin Sodium Potassium Chloride Carbon Dioxide BUN Creatinine Glucose POC Glucose 154 H 125 H Lactic Acid Calcium Phosphorus Magnesium Direct Bilirubin AST ALT Alkaline Phosphatase Lactate Dehydrogenase Troponin T C-Reactive Protein Total Protein Albumin Prealbumin Triglycerides Cholesterol LDL Cholesterol Direct HDL Cholesterol PTH Intact Urine pH Urine WBC (Auto) Urine Creatinine Urine Total Protein Fluid Total Protein Vancomycin Trough Rheumatoid Factor Complement C4 Miscellaneous Test Crossmatch 11/17/16 11/17/16 11/17/16 03:20 03:20 03:20 WBC RBC 2.55 L Hgb 7.3 L Hct 21.9 L MCV MCH MCHC RDW 16.6 H Plt Count Lymph % (Auto) [place]s % (Auto) 11.5 H Lymph # [place] # 1.1 H Baso # Seg Neutrophils % Seg Neuts % (Manual) Lymphocytes % (Manual) Monocytes % (Manual) Eosinophils % (Manual) Basophils % (Manual) Nucleated RBC % Seg Neutrophils # Seg Neutrophils # Man Lymphocytes # (Manual) Monocytes # (Manual) Eosinophils # (Manual) Basophils # (Manual) PT 16.8 H INR 1.37 H Fibrinogen dRVVT Confirm Interp Factor V Activity POC ABG pH POC ABG pCO2 POC ABG pO2 ABG pO2 ABG HCO3 ABG Base Excess ABG Hemoglobin Oxyhemoglobin Sodium Potassium 3.5 L Chloride Carbon Dioxide BUN 21 H Creatinine Glucose POC Glucose Lactic Acid Calcium 7.9 L Phosphorus Magnesium Direct Bilirubin AST ALT Alkaline Phosphatase Lactate Dehydrogenase Troponin T C-Reactive Protein Total Protein Albumin Prealbumin Triglycerides Cholesterol LDL Cholesterol Direct HDL Cholesterol PTH Intact Urine pH Urine WBC (Auto) Urine Creatinine Urine Total Protein Fluid Total Protein Vancomycin Trough Rheumatoid Factor Complement C4 Miscellaneous Test Crossmatch 11/17/16 11/17/16 11/17/16 06:34 11:21 21:22 WBC RBC Hgb Hct MCV MCH MCHC RDW Plt Count Lymph % (Auto) [place]s % (Auto) Lymph # [place] # Baso # Seg Neutrophils % Seg Neuts % (Manual) Lymphocytes % (Manual) Monocytes % (Manual) Eosinophils % (Manual) Basophils % (Manual) Nucleated RBC % Seg Neutrophils # Seg Neutrophils # Man Lymphocytes # (Manual) Monocytes # (Manual) Eosinophils # (Manual) Basophils # (Manual) PT INR Fibrinogen dRVVT Confirm Interp Factor V Activity POC ABG pH 7.467 H POC ABG pCO2 POC ABG pO2 73 L ABG pO2 ABG HCO3 ABG Base Excess ABG Hemoglobin Oxyhemoglobin Sodium Potassium Chloride Carbon Dioxide BUN Creatinine Glucose POC Glucose 121 H 119 H Lactic Acid Calcium Phosphorus Magnesium Direct Bilirubin AST ALT Alkaline Phosphatase Lactate Dehydrogenase Troponin T C-Reactive Protein Total Protein Albumin Prealbumin Triglycerides Cholesterol LDL Cholesterol Direct HDL Cholesterol PTH Intact Urine pH Urine WBC (Auto) Urine Creatinine Urine Total Protein Fluid Total Protein Vancomycin Trough Rheumatoid Factor Complement C4 Miscellaneous Test Crossmatch 11/18/16 11/18/16 11/19/16 12:16 17:19 00:00 WBC RBC Hgb Hct MCV MCH MCHC RDW Plt Count Lymph % (Auto) Towns % (Auto) Lymph # [place] # Baso # Seg Neutrophils % Seg Neuts % (Manual) Lymphocytes % (Manual) Monocytes % (Manual) Eosinophils % (Manual) Basophils % (Manual) Nucleated RBC % Seg Neutrophils # Seg Neutrophils # Man Lymphocytes # (Manual) Monocytes # (Manual) Eosinophils # (Manual) Basophils # (Manual) PT INR Fibrinogen dRVVT Confirm Interp Factor V Activity POC ABG pH POC ABG pCO2 POC ABG pO2 ABG pO2 ABG HCO3 ABG Base Excess ABG Hemoglobin Oxyhemoglobin Sodium Potassium Chloride Carbon Dioxide BUN Creatinine Glucose POC Glucose 124 H 162 H 139 H Lactic Acid Calcium Phosphorus Magnesium Direct Bilirubin AST ALT Alkaline Phosphatase Lactate Dehydrogenase Troponin T C-Reactive Protein Total Protein Albumin Prealbumin Triglycerides Cholesterol LDL Cholesterol Direct HDL Cholesterol PTH Intact Urine pH Urine WBC (Auto) Urine Creatinine Urine Total Protein Fluid Total Protein Vancomycin Trough Rheumatoid Factor Complement C4 Miscellaneous Test Crossmatch 11/19/16 11/19/16 11/20/16 05:00 12:43 00:40 WBC RBC Hgb Hct MCV MCH MCHC RDW Plt Count Lymph % (Auto) Towns % (Auto) Lymph # [place] # Baso # Seg Neutrophils % Seg Neuts % (Manual) Lymphocytes % (Manual) Monocytes % (Manual) Eosinophils % (Manual) Basophils % (Manual) Nucleated RBC % Seg Neutrophils # Seg Neutrophils # Man Lymphocytes # (Manual) Monocytes # (Manual) Eosinophils # (Manual) Basophils # (Manual) PT INR Fibrinogen dRVVT Confirm Interp Factor V Activity POC ABG pH POC ABG pCO2 POC ABG pO2 ABG pO2 ABG HCO3 ABG Base Excess ABG Hemoglobin Oxyhemoglobin Sodium Potassium Chloride Carbon Dioxide BUN Creatinine Glucose POC Glucose 110 H 125 H 136 H Lactic Acid Calcium Phosphorus Magnesium Direct Bilirubin AST ALT Alkaline Phosphatase Lactate Dehydrogenase Troponin T C-Reactive Protein Total Protein Albumin Prealbumin Triglycerides Cholesterol LDL Cholesterol Direct HDL Cholesterol PTH Intact Urine pH Urine WBC (Auto) Urine Creatinine Urine Total Protein Fluid Total Protein Vancomycin Trough Rheumatoid Factor Complement C4 Miscellaneous Test Crossmatch 11/20/16 11/20/16 11/20/16 05:00 05:00 05:51 WBC 13.1 H RBC 2.74 L Hgb 7.7 L Hct 23.6 L MCV MCH MCHC RDW 16.9 H Plt Count Lymph % (Auto) Towns % (Auto) 10.8 H Lymph # Towns # 1.4 H Baso # Seg Neutrophils % Seg Neuts % (Manual) Lymphocytes % (Manual) Monocytes % (Manual) Eosinophils % (Manual) Basophils % (Manual) Nucleated RBC % Seg Neutrophils # 7.9 H Seg Neutrophils # Man Lymphocytes # (Manual) Monocytes # (Manual) Eosinophils # (Manual) Basophils # (Manual) PT INR Fibrinogen dRVVT Confirm Interp Factor V Activity POC ABG pH POC ABG pCO2 POC ABG pO2 ABG pO2 ABG HCO3 ABG Base Excess ABG Hemoglobin Oxyhemoglobin Sodium Potassium Chloride Carbon Dioxide BUN 31 H Creatinine 1.8 H Glucose 129 H POC Glucose 133 H Lactic Acid Calcium Phosphorus Magnesium Direct Bilirubin AST ALT Alkaline Phosphatase Lactate Dehydrogenase Troponin T C-Reactive Protein Total Protein Albumin Prealbumin Triglycerides Cholesterol LDL Cholesterol Direct HDL Cholesterol PTH Intact Urine pH Urine WBC (Auto) Urine Creatinine Urine Total Protein Fluid Total Protein Vancomycin Trough Rheumatoid Factor Complement C4 Miscellaneous Test Crossmatch 11/20/16 11/20/16 11/21/16 12:40 18:10 01:20 WBC RBC Hgb Hct MCV MCH MCHC RDW Plt Count Lymph % (Auto) Towns % (Auto) Lymph # Towns # Baso # Seg Neutrophils % Seg Neuts % (Manual) Lymphocytes % (Manual) Monocytes % (Manual) Eosinophils % (Manual) Basophils % (Manual) Nucleated RBC % Seg Neutrophils # Seg Neutrophils # Man Lymphocytes # (Manual) Monocytes # (Manual) Eosinophils # (Manual) Basophils # (Manual) PT INR Fibrinogen dRVVT Confirm Interp Factor V Activity POC ABG pH POC ABG pCO2 POC ABG pO2 ABG pO2 ABG HCO3 ABG Base Excess ABG Hemoglobin Oxyhemoglobin Sodium Potassium Chloride Carbon Dioxide BUN Creatinine Glucose POC Glucose 134 H 138 H 136 H Lactic Acid Calcium Phosphorus Magnesium Direct Bilirubin AST ALT Alkaline Phosphatase Lactate Dehydrogenase Troponin T C-Reactive Protein Total Protein Albumin Prealbumin Triglycerides Cholesterol LDL Cholesterol Direct HDL Cholesterol PTH Intact Urine pH Urine WBC (Auto) Urine Creatinine Urine Total Protein Fluid Total Protein Vancomycin Trough Rheumatoid Factor Complement C4 Miscellaneous Test Crossmatch 11/21/16 11/21/16 11/21/16 07:04 07:45 07:45 WBC 22.0 H RBC 2.91 L Hgb 8.2 L Hct 25.4 L MCV MCH MCHC RDW 17.1 H Plt Count Lymph % (Auto) Towns % (Auto) Lymph # Towns # Baso # Seg Neutrophils % Seg Neuts % (Manual) Lymphocytes % (Manual) 8.0 L Monocytes % (Manual) Eosinophils % (Manual) Basophils % (Manual) Nucleated RBC % Seg Neutrophils # Seg Neutrophils # Man 14.7 H Lymphocytes # (Manual) Monocytes # (Manual) 1.1 H Eosinophils # (Manual) Basophils # (Manual) PT INR Fibrinogen dRVVT Confirm Interp Factor V Activity POC ABG pH POC ABG pCO2 POC ABG pO2 ABG pO2 ABG HCO3 ABG Base Excess ABG Hemoglobin Oxyhemoglobin Sodium Potassium Chloride Carbon Dioxide BUN 42 H Creatinine 2.0 H Glucose POC Glucose 108 H Lactic Acid Calcium Phosphorus Magnesium Direct Bilirubin AST ALT Alkaline Phosphatase Lactate Dehydrogenase Troponin T C-Reactive Protein Total Protein Albumin Prealbumin Triglycerides Cholesterol LDL Cholesterol Direct HDL Cholesterol PTH Intact Urine pH Urine WBC (Auto) Urine Creatinine Urine Total Protein Fluid Total Protein Vancomycin Trough Rheumatoid Factor Complement C4 Miscellaneous Test Crossmatch 11/21/16 11/21/16 11/21/16 08:38 10:09 11:20 WBC RBC Hgb Hct MCV MCH MCHC RDW Plt Count Lymph % (Auto) Towns % (Auto) Lymph # [place]s # Baso # Seg Neutrophils % Seg Neuts % (Manual) Lymphocytes % (Manual) Monocytes % (Manual) Eosinophils % (Manual) Basophils % (Manual) Nucleated RBC % Seg Neutrophils # Seg Neutrophils # Man Lymphocytes # (Manual) Monocytes # (Manual) Eosinophils # (Manual) Basophils # (Manual) PT INR Fibrinogen dRVVT Confirm Interp Factor V Activity POC ABG pH 7.346 L POC ABG pCO2 34.4 L POC ABG pO2 314 H ABG pO2 ABG HCO3 ABG Base Excess ABG Hemoglobin Oxyhemoglobin Sodium Potassium Chloride Carbon Dioxide BUN Creatinine Glucose POC Glucose 195 H 153 H Lactic Acid Calcium Phosphorus Magnesium Direct Bilirubin AST ALT Alkaline Phosphatase Lactate Dehydrogenase Troponin T C-Reactive Protein Total Protein Albumin Prealbumin Triglycerides Cholesterol LDL Cholesterol Direct HDL Cholesterol PTH Intact Urine pH Urine WBC (Auto) Urine Creatinine Urine Total Protein Fluid Total Protein Vancomycin Trough Rheumatoid Factor Complement C4 Miscellaneous Test Crossmatch 11/21/16 11/22/16 11/22/16 23:37 04:48 05:00 WBC 29.7 H RBC 2.73 L Hgb 7.5 L Hct 24.2 L MCV MCH 27 L MCHC RDW 17.4 H Plt Count Lymph % (Auto) Towns % (Auto) Lymph # Towns # Baso # Seg Neutrophils % Seg Neuts % (Manual) Lymphocytes % (Manual) 7.0 L Monocytes % (Manual) Eosinophils % (Manual) Basophils % (Manual) Nucleated RBC % Seg Neutrophils # Seg Neutrophils # Man 15.4 H Lymphocytes # (Manual) Monocytes # (Manual) Eosinophils # (Manual) Basophils # (Manual) PT INR Fibrinogen dRVVT Confirm Interp Factor V Activity POC ABG pH POC ABG pCO2 24.6 L POC ABG pO2 189 H ABG pO2 ABG HCO3 ABG Base Excess ABG Hemoglobin Oxyhemoglobin Sodium Potassium Chloride Carbon Dioxide BUN Creatinine Glucose POC Glucose 65 L Lactic Acid Calcium Phosphorus Magnesium Direct Bilirubin AST ALT Alkaline Phosphatase Lactate Dehydrogenase Troponin T C-Reactive Protein Total Protein Albumin Prealbumin Triglycerides Cholesterol LDL Cholesterol Direct HDL Cholesterol PTH Intact Urine pH Urine WBC (Auto) Urine Creatinine Urine Total Protein Fluid Total Protein Vancomycin Trough Rheumatoid Factor Complement C4 Miscellaneous Test Crossmatch 11/22/16 11/23/16 11/23/16 05:00 03:44 04:06 WBC RBC 2.52 L Hgb 7.2 L Hct 21.5 L MCV MCH MCHC RDW 17.1 H Plt Count Lymph % (Auto) Towns % (Auto) 12.4 H Lymph # Towns # 1.4 H Baso # Seg Neutrophils % Seg Neuts % (Manual) Lymphocytes % (Manual) Monocytes % (Manual) Eosinophils % (Manual) Basophils % (Manual) Nucleated RBC % Seg Neutrophils # Seg Neutrophils # Man Lymphocytes # (Manual) Monocytes # (Manual) Eosinophils # (Manual) Basophils # (Manual) PT INR Fibrinogen dRVVT Confirm Interp Factor V Activity POC ABG pH 7.493 H POC ABG pCO2 29.5 L POC ABG pO2 49 L ABG pO2 ABG HCO3 ABG Base Excess ABG Hemoglobin Oxyhemoglobin Sodium 134 L Potassium Chloride 95.9 L Carbon Dioxide 14 L D BUN 51 H Creatinine 2.6 H Glucose POC Glucose Lactic Acid Calcium Phosphorus Magnesium Direct Bilirubin AST ALT Alkaline Phosphatase Lactate Dehydrogenase Troponin T C-Reactive Protein Total Protein Albumin Prealbumin Triglycerides Cholesterol LDL Cholesterol Direct HDL Cholesterol PTH Intact Urine pH Urine WBC (Auto) Urine Creatinine Urine Total Protein Fluid Total Protein Vancomycin Trough Rheumatoid Factor Complement C4 Miscellaneous Test Crossmatch 11/23/16 11/23/16 11/24/16 04:06 11:29 06:39 WBC RBC Hgb Hct MCV MCH MCHC RDW Plt Count Lymph % (Auto) Towns % (Auto) Lymph # [place] # Baso # Seg Neutrophils % Seg Neuts % (Manual) Lymphocytes % (Manual) Monocytes % (Manual) Eosinophils % (Manual) Basophils % (Manual) Nucleated RBC % Seg Neutrophils # Seg Neutrophils # Man Lymphocytes # (Manual) Monocytes # (Manual) Eosinophils # (Manual) Basophils # (Manual) PT INR Fibrinogen dRVVT Confirm Interp Factor V Activity POC ABG pH POC ABG pCO2 POC ABG pO2 ABG pO2 ABG HCO3 ABG Base Excess ABG Hemoglobin Oxyhemoglobin Sodium 136 L Potassium Chloride 95.2 L Carbon Dioxide BUN 60 H Creatinine 2.9 H Glucose POC Glucose 69 L 305 H Lactic Acid Calcium Phosphorus Magnesium 1.60 L Direct Bilirubin AST ALT Alkaline Phosphatase Lactate Dehydrogenase Troponin T C-Reactive Protein Total Protein Albumin Prealbumin Triglycerides Cholesterol LDL Cholesterol Direct HDL Cholesterol PTH Intact Urine pH Urine WBC (Auto) Urine Creatinine Urine Total Protein Fluid Total Protein Vancomycin Trough Rheumatoid Factor Complement C4 Miscellaneous Test Crossmatch 11/24/16 11/24/16 11/24/16 06:43 08:08 08:08 WBC 11.2 H RBC 2.47 L Hgb 6.8 L Hct 20.6 L MCV MCH MCHC RDW 17.0 H Plt Count Lymph % (Auto) Towns % (Auto) 10.3 H Lymph # [place]s # 1.2 H Baso # Seg Neutrophils % Seg Neuts % (Manual) Lymphocytes % (Manual) Monocytes % (Manual) Eosinophils % (Manual) Basophils % (Manual) Nucleated RBC % Seg Neutrophils # Seg Neutrophils # Man Lymphocytes # (Manual) Monocytes # (Manual) Eosinophils # (Manual) Basophils # (Manual) PT INR Fibrinogen dRVVT Confirm Interp Factor V Activity POC ABG pH POC ABG pCO2 POC ABG pO2 ABG pO2 ABG HCO3 ABG Base Excess ABG Hemoglobin Oxyhemoglobin Sodium 135 L Potassium Chloride 96.3 L Carbon Dioxide BUN 61 H Creatinine 3.1 H Glucose POC Glucose 62 L Lactic Acid Calcium 8.2 L Phosphorus Magnesium Direct Bilirubin AST ALT Alkaline Phosphatase Lactate Dehydrogenase Troponin T C-Reactive Protein Total Protein Albumin Prealbumin Triglycerides Cholesterol LDL Cholesterol Direct HDL Cholesterol PTH Intact Urine pH Urine WBC (Auto) Urine Creatinine Urine Total Protein Fluid Total Protein Vancomycin Trough Rheumatoid Factor Complement C4 Miscellaneous Test Crossmatch 11/24/16 11/24/16 11/24/16 08:34 11:20 12:41 WBC RBC Hgb Hct MCV MCH MCHC RDW Plt Count Lymph % (Auto) Towns % (Auto) Lymph # [place] # Baso # Seg Neutrophils % Seg Neuts % (Manual) Lymphocytes % (Manual) Monocytes % (Manual) Eosinophils % (Manual) Basophils % (Manual) Nucleated RBC % Seg Neutrophils # Seg Neutrophils # Man Lymphocytes # (Manual) Monocytes # (Manual) Eosinophils # (Manual) Basophils # (Manual) PT INR Fibrinogen dRVVT Confirm Interp Factor V Activity POC ABG pH POC ABG pCO2 POC ABG pO2 ABG pO2 ABG HCO3 ABG Base Excess ABG Hemoglobin Oxyhemoglobin Sodium Potassium Chloride Carbon Dioxide BUN Creatinine Glucose POC Glucose 108 H Lactic Acid Calcium Phosphorus Magnesium 1.60 L Direct Bilirubin AST ALT Alkaline Phosphatase Lactate Dehydrogenase Troponin T C-Reactive Protein Total Protein Albumin Prealbumin Triglycerides Cholesterol LDL Cholesterol Direct HDL Cholesterol PTH Intact Urine pH Urine WBC (Auto) Urine Creatinine Urine Total Protein Fluid Total Protein Vancomycin Trough Rheumatoid Factor Complement C4 Miscellaneous Test Crossmatch See Detail 11/25/16 11/25/16 11/25/16 00:03 04:42 04:42 WBC RBC 3.03 L Hgb 8.6 L Hct 25.3 L MCV MCH MCHC RDW 16.2 H Plt Count Lymph % (Auto) Towns % (Auto) 8.1 H Lymph # [place] # Baso # Seg Neutrophils % 71.3 H Seg Neuts % (Manual) Lymphocytes % (Manual) Monocytes % (Manual) Eosinophils % (Manual) Basophils % (Manual) Nucleated RBC % Seg Neutrophils # Seg Neutrophils # Man Lymphocytes # (Manual) Monocytes # (Manual) Eosinophils # (Manual) Basophils # (Manual) PT INR Fibrinogen dRVVT Confirm Interp Factor V Activity POC ABG pH POC ABG pCO2 POC ABG pO2 ABG pO2 ABG HCO3 ABG Base Excess ABG Hemoglobin Oxyhemoglobin Sodium Potassium Chloride Carbon Dioxide BUN 61 H Creatinine 3.0 H Glucose 102 H POC Glucose 113 H Lactic Acid Calcium 8.2 L Phosphorus Magnesium Direct Bilirubin AST ALT Alkaline Phosphatase 142 H Lactate Dehydrogenase Troponin T C-Reactive Protein Total Protein 5.7 L Albumin 1.5 L Prealbumin Triglycerides Cholesterol LDL Cholesterol Direct HDL Cholesterol PTH Intact Urine pH Urine WBC (Auto) Urine Creatinine Urine Total Protein Fluid Total Protein Vancomycin Trough Rheumatoid Factor Complement C4 Miscellaneous Test Crossmatch 11/25/16 11/25/16 11/25/16 05:12 11:31 14:12 WBC RBC Hgb Hct MCV MCH MCHC RDW Plt Count Lymph % (Auto) Towns % (Auto) Lymph # [place] # Baso # Seg Neutrophils % Seg Neuts % (Manual) Lymphocytes % (Manual) Monocytes % (Manual) Eosinophils % (Manual) Basophils % (Manual) Nucleated RBC % Seg Neutrophils # Seg Neutrophils # Man Lymphocytes # (Manual) Monocytes # (Manual) Eosinophils # (Manual) Basophils # (Manual) PT INR Fibrinogen dRVVT Confirm Interp Factor V Activity POC ABG pH 7.487 H POC ABG pCO2 POC ABG pO2 153 H ABG pO2 ABG HCO3 ABG Base Excess ABG Hemoglobin Oxyhemoglobin Sodium Potassium Chloride Carbon Dioxide BUN Creatinine Glucose POC Glucose 131 H 140 H Lactic Acid Calcium Phosphorus Magnesium Direct Bilirubin AST ALT Alkaline Phosphatase Lactate Dehydrogenase Troponin T C-Reactive Protein Total Protein Albumin Prealbumin Triglycerides Cholesterol LDL Cholesterol Direct HDL Cholesterol PTH Intact Urine pH Urine WBC (Auto) Urine Creatinine Urine Total Protein Fluid Total Protein Vancomycin Trough Rheumatoid Factor Complement C4 Miscellaneous Test Crossmatch 11/25/16 11/26/16 11/26/16 17:23 00:09 05:13 WBC RBC 2.94 L Hgb 8.4 L Hct 24.6 L MCV MCH MCHC RDW 16.4 H Plt Count Lymph % (Auto) Towns % (Auto) 12.3 H Lymph # [place]s # 1.1 H Baso # Seg Neutrophils % Seg Neuts % (Manual) Lymphocytes % (Manual) Monocytes % (Manual) Eosinophils % (Manual) Basophils % (Manual) Nucleated RBC % Seg Neutrophils # Seg Neutrophils # Man Lymphocytes # (Manual) Monocytes # (Manual) Eosinophils # (Manual) Basophils # (Manual) PT INR Fibrinogen dRVVT Confirm Interp Factor V Activity POC ABG pH POC ABG pCO2 POC ABG pO2 ABG pO2 ABG HCO3 ABG Base Excess ABG Hemoglobin Oxyhemoglobin Sodium Potassium Chloride Carbon Dioxide BUN Creatinine Glucose POC Glucose 146 H 112 H Lactic Acid Calcium Phosphorus Magnesium Direct Bilirubin AST ALT Alkaline Phosphatase Lactate Dehydrogenase Troponin T C-Reactive Protein Total Protein Albumin Prealbumin Triglycerides Cholesterol LDL Cholesterol Direct HDL Cholesterol PTH Intact Urine pH Urine WBC (Auto) Urine Creatinine Urine Total Protein Fluid Total Protein Vancomycin Trough Rheumatoid Factor Complement C4 Miscellaneous Test Crossmatch 11/26/16 11/26/16 11/26/16 05:13 05:28 11:53 WBC RBC Hgb Hct MCV MCH MCHC RDW Plt Count Lymph % (Auto) [place]s % (Auto) Lymph # [place] # Baso # Seg Neutrophils % Seg Neuts % (Manual) Lymphocytes % (Manual) Monocytes % (Manual) Eosinophils % (Manual) Basophils % (Manual) Nucleated RBC % Seg Neutrophils # Seg Neutrophils # Man Lymphocytes # (Manual) Monocytes # (Manual) Eosinophils # (Manual) Basophils # (Manual) PT INR Fibrinogen dRVVT Confirm Interp Factor V Activity POC ABG pH POC ABG pCO2 POC ABG pO2 ABG pO2 ABG HCO3 ABG Base Excess ABG Hemoglobin Oxyhemoglobin Sodium Potassium Chloride 97.8 L Carbon Dioxide BUN 37 H Creatinine 2.0 H Glucose 109 H POC Glucose 117 H 111 H Lactic Acid Calcium 7.9 L Phosphorus 1.80 L D Magnesium Direct Bilirubin AST ALT Alkaline Phosphatase Lactate Dehydrogenase Troponin T C-Reactive Protein Total Protein Albumin Prealbumin Triglycerides Cholesterol LDL Cholesterol Direct HDL Cholesterol PTH Intact Urine pH Urine WBC (Auto) Urine Creatinine Urine Total Protein Fluid Total Protein Vancomycin Trough Rheumatoid Factor Complement C4 Miscellaneous Test Crossmatch 11/26/16 11/27/16 11/27/16 17:14 04:50 06:02 WBC RBC Hgb Hct MCV MCH MCHC RDW Plt Count Lymph % (Auto) Towns % (Auto) Lymph # [place] # Baso # Seg Neutrophils % Seg Neuts % (Manual) Lymphocytes % (Manual) Monocytes % (Manual) Eosinophils % (Manual) Basophils % (Manual) Nucleated RBC % Seg Neutrophils # Seg Neutrophils # Man Lymphocytes # (Manual) Monocytes # (Manual) Eosinophils # (Manual) Basophils # (Manual) PT INR Fibrinogen dRVVT Confirm Interp Factor V Activity POC ABG pH POC ABG pCO2 POC ABG pO2 ABG pO2 75.2 L ABG HCO3 26.4 H ABG Base Excess ABG Hemoglobin 7.6 L Oxyhemoglobin 94.8 L Sodium Potassium Chloride Carbon Dioxide BUN 49 H Creatinine 2.3 H Glucose POC Glucose 115 H Lactic Acid Calcium Phosphorus 1.50 L Magnesium Direct Bilirubin AST ALT Alkaline Phosphatase Lactate Dehydrogenase Troponin T C-Reactive Protein Total Protein Albumin Prealbumin Triglycerides Cholesterol LDL Cholesterol Direct HDL Cholesterol PTH Intact Urine pH Urine WBC (Auto) Urine Creatinine Urine Total Protein Fluid Total Protein Vancomycin Trough Rheumatoid Factor Complement C4 Miscellaneous Test Crossmatch 11/27/16 11/27/16 11/27/16 06:02 11:25 17:25 WBC 11.6 H RBC 2.75 L Hgb 7.6 L Hct 23.4 L MCV MCH MCHC RDW 16.5 H Plt Count Lymph % (Auto) [place]s % (Auto) Lymph # [place] # Baso # Seg Neutrophils % Seg Neuts % (Manual) Lymphocytes % (Manual) Monocytes % (Manual) Eosinophils % (Manual) Basophils % (Manual) Nucleated RBC % Seg Neutrophils # Seg Neutrophils # Man Lymphocytes # (Manual) Monocytes # (Manual) Eosinophils # (Manual) Basophils # (Manual) PT INR Fibrinogen dRVVT Confirm Interp Factor V Activity POC ABG pH POC ABG pCO2 POC ABG pO2 ABG pO2 ABG HCO3 ABG Base Excess ABG Hemoglobin Oxyhemoglobin Sodium Potassium Chloride Carbon Dioxide BUN Creatinine Glucose POC Glucose 114 H 126 H Lactic Acid Calcium Phosphorus Magnesium Direct Bilirubin AST ALT Alkaline Phosphatase Lactate Dehydrogenase Troponin T C-Reactive Protein Total Protein Albumin Prealbumin Triglycerides Cholesterol LDL Cholesterol Direct HDL Cholesterol PTH Intact Urine pH Urine WBC (Auto) Urine Creatinine Urine Total Protein Fluid Total Protein Vancomycin Trough Rheumatoid Factor Complement C4 Miscellaneous Test Crossmatch 11/28/16 11/28/16 11/28/16 04:45 05:33 05:44 WBC RBC Hgb Hct MCV MCH MCHC RDW Plt Count Lymph % (Auto) [place]s % (Auto) Lymph # [place] # Baso # Seg Neutrophils % Seg Neuts % (Manual) Lymphocytes % (Manual) Monocytes % (Manual) Eosinophils % (Manual) Basophils % (Manual) Nucleated RBC % Seg Neutrophils # Seg Neutrophils # Man Lymphocytes # (Manual) Monocytes # (Manual) Eosinophils # (Manual) Basophils # (Manual) PT INR Fibrinogen dRVVT Confirm Interp Factor V Activity POC ABG pH POC ABG pCO2 POC ABG pO2 ABG pO2 99.3 H ABG HCO3 ABG Base Excess ABG Hemoglobin 8.3 L Oxyhemoglobin Sodium Potassium Chloride Carbon Dioxide BUN 63 H Creatinine 2.4 H Glucose 102 H POC Glucose 108 H Lactic Acid Calcium Phosphorus 1.80 L Magnesium Direct Bilirubin AST ALT Alkaline Phosphatase Lactate Dehydrogenase Troponin T C-Reactive Protein Total Protein Albumin Prealbumin Triglycerides Cholesterol LDL Cholesterol Direct HDL Cholesterol PTH Intact Urine pH Urine WBC (Auto) Urine Creatinine Urine Total Protein Fluid Total Protein Vancomycin Trough Rheumatoid Factor Complement C4 Miscellaneous Test Crossmatch 11/28/16 11/28/16 11/28/16 12:31 16:09 23:46 WBC RBC Hgb Hct MCV MCH MCHC RDW Plt Count Lymph % (Auto) Towns % (Auto) Lymph # [place] # Baso # Seg Neutrophils % Seg Neuts % (Manual) Lymphocytes % (Manual) Monocytes % (Manual) Eosinophils % (Manual) Basophils % (Manual) Nucleated RBC % Seg Neutrophils # Seg Neutrophils # Man Lymphocytes # (Manual) Monocytes # (Manual) Eosinophils # (Manual) Basophils # (Manual) PT INR Fibrinogen dRVVT Confirm Interp Factor V Activity POC ABG pH POC ABG pCO2 POC ABG pO2 ABG pO2 ABG HCO3 ABG Base Excess ABG Hemoglobin Oxyhemoglobin Sodium Potassium Chloride Carbon Dioxide BUN Creatinine Glucose POC Glucose 126 H 111 H 119 H Lactic Acid Calcium Phosphorus Magnesium Direct Bilirubin AST ALT Alkaline Phosphatase Lactate Dehydrogenase Troponin T C-Reactive Protein Total Protein Albumin Prealbumin Triglycerides Cholesterol LDL Cholesterol Direct HDL Cholesterol PTH Intact Urine pH Urine WBC (Auto) Urine Creatinine Urine Total Protein Fluid Total Protein Vancomycin Trough Rheumatoid Factor Complement C4 Miscellaneous Test Crossmatch 11/29/16 11/29/16 11/29/16 03:33 04:52 05:10 WBC RBC Hgb Hct MCV MCH MCHC RDW Plt Count Lymph % (Auto) Towns % (Auto) Lymph # [place] # Baso # Seg Neutrophils % Seg Neuts % (Manual) Lymphocytes % (Manual) Monocytes % (Manual) Eosinophils % (Manual) Basophils % (Manual) Nucleated RBC % Seg Neutrophils # Seg Neutrophils # Man Lymphocytes # (Manual) Monocytes # (Manual) Eosinophils # (Manual) Basophils # (Manual) PT INR Fibrinogen dRVVT Confirm Interp Factor V Activity POC ABG pH POC ABG pCO2 POC ABG pO2 ABG pO2 ABG HCO3 ABG Base Excess ABG Hemoglobin 7.0 L Oxyhemoglobin 94.9 L Sodium Potassium Chloride Carbon Dioxide BUN 73 H Creatinine 2.7 H Glucose POC Glucose 108 H Lactic Acid Calcium Phosphorus Magnesium Direct Bilirubin AST ALT Alkaline Phosphatase Lactate Dehydrogenase Troponin T C-Reactive Protein Total Protein Albumin Prealbumin Triglycerides Cholesterol LDL Cholesterol Direct HDL Cholesterol PTH Intact Urine pH Urine WBC (Auto) Urine Creatinine Urine Total Protein Fluid Total Protein Vancomycin Trough Rheumatoid Factor Complement C4 Miscellaneous Test Crossmatch 11/29/16 11/29/16 11/29/16 12:16 18:05 23:46 WBC RBC Hgb Hct MCV MCH MCHC RDW Plt Count Lymph % (Auto) Towns % (Auto) Lymph # Town[place] # Baso # Seg Neutrophils % Seg Neuts % (Manual) Lymphocytes % (Manual) Monocytes % (Manual) Eosinophils % (Manual) Basophils % (Manual) Nucleated RBC % Seg Neutrophils # Seg Neutrophils # Man Lymphocytes # (Manual) Monocytes # (Manual) Eosinophils # (Manual) Basophils # (Manual) PT INR Fibrinogen dRVVT Confirm Interp Factor V Activity POC ABG pH POC ABG pCO2 POC ABG pO2 ABG pO2 ABG HCO3 ABG Base Excess ABG Hemoglobin Oxyhemoglobin Sodium Potassium Chloride Carbon Dioxide BUN Creatinine Glucose POC Glucose 133 H 146 H 141 H Lactic Acid Calcium Phosphorus Magnesium Direct Bilirubin AST ALT Alkaline Phosphatase Lactate Dehydrogenase Troponin T C-Reactive Protein Total Protein Albumin Prealbumin Triglycerides Cholesterol LDL Cholesterol Direct HDL Cholesterol PTH Intact Urine pH Urine WBC (Auto) Urine Creatinine Urine Total Protein Fluid Total Protein Vancomycin Trough Rheumatoid Factor Complement C4 Miscellaneous Test Crossmatch 11/30/16 11/30/16 11/30/16 04:17 04:17 04:32 WBC 12.0 H RBC 2.80 L Hgb 7.8 L Hct 23.6 L MCV MCH MCHC RDW 16.6 H Plt Count Lymph % (Auto) Towns % (Auto) 11.3 H Lymph # Towns # 1.4 H Baso # Seg Neutrophils % Seg Neuts % (Manual) Lymphocytes % (Manual) Monocytes % (Manual) Eosinophils % (Manual) Basophils % (Manual) Nucleated RBC % Seg Neutrophils # 8.2 H Seg Neutrophils # Man Lymphocytes # (Manual) Monocytes # (Manual) Eosinophils # (Manual) Basophils # (Manual) PT INR Fibrinogen dRVVT Confirm Interp Factor V Activity POC ABG pH POC ABG pCO2 POC ABG pO2 ABG pO2 ABG HCO3 ABG Base Excess ABG Hemoglobin Oxyhemoglobin Sodium 169 H* D Potassium 5.1 H Chloride 121.5 H Carbon Dioxide BUN 34 H Creatinine 1.3 H D Glucose 133 H POC Glucose 131 H Lactic Acid Calcium 10.3 H Phosphorus Magnesium Direct Bilirubin AST ALT Alkaline Phosphatase Lactate Dehydrogenase Troponin T C-Reactive Protein Total Protein Albumin Prealbumin Triglycerides Cholesterol LDL Cholesterol Direct HDL Cholesterol PTH Intact Urine pH Urine WBC (Auto) Urine Creatinine Urine Total Protein Fluid Total Protein Vancomycin Trough Rheumatoid Factor Complement C4 Miscellaneous Test Crossmatch 11/30/16 11/30/16 11/30/16 05:45 11:10 17:26 WBC RBC Hgb Hct MCV MCH MCHC RDW Plt Count Lymph % (Auto) Towns % (Auto) Lymph # [place] # Baso # Seg Neutrophils % Seg Neuts % (Manual) Lymphocytes % (Manual) Monocytes % (Manual) Eosinophils % (Manual) Basophils % (Manual) Nucleated RBC % Seg Neutrophils # Seg Neutrophils # Man Lymphocytes # (Manual) Monocytes # (Manual) Eosinophils # (Manual) Basophils # (Manual) PT INR Fibrinogen dRVVT Confirm Interp Factor V Activity POC ABG pH POC ABG pCO2 POC ABG pO2 ABG pO2 ABG HCO3 ABG Base Excess ABG Hemoglobin Oxyhemoglobin Sodium Potassium Chloride Carbon Dioxide BUN 45 H Creatinine 1.6 H Glucose 131 H POC Glucose 146 H 134 H Lactic Acid Calcium Phosphorus Magnesium Direct Bilirubin AST ALT Alkaline Phosphatase Lactate Dehydrogenase Troponin T C-Reactive Protein Total Protein Albumin Prealbumin Triglycerides Cholesterol LDL Cholesterol Direct HDL Cholesterol PTH Intact Urine pH Urine WBC (Auto) Urine Creatinine Urine Total Protein Fluid Total Protein Vancomycin Trough Rheumatoid Factor Complement C4 Miscellaneous Test Crossmatch 11/30/16 12/01/16 12/01/16 23:35 00:06 03:35 WBC RBC Hgb Hct MCV MCH MCHC RDW Plt Count Lymph % (Auto) Towns % (Auto) Lymph # Towns # Baso # Seg Neutrophils % Seg Neuts % (Manual) Lymphocytes % (Manual) Monocytes % (Manual) Eosinophils % (Manual) Basophils % (Manual) Nucleated RBC % Seg Neutrophils # Seg Neutrophils # Man Lymphocytes # (Manual) Monocytes # (Manual) Eosinophils # (Manual) Basophils # (Manual) PT INR Fibrinogen dRVVT Confirm Interp Factor V Activity POC ABG pH POC ABG pCO2 POC ABG pO2 ABG pO2 ABG HCO3 ABG Base Excess ABG Hemoglobin 6.9 L Oxyhemoglobin Sodium Potassium Chloride Carbon Dioxide BUN 58 H Creatinine 1.8 H Glucose 146 H POC Glucose 151 H Lactic Acid Calcium Phosphorus Magnesium Direct Bilirubin AST ALT Alkaline Phosphatase Lactate Dehydrogenase Troponin T C-Reactive Protein Total Protein Albumin Prealbumin Triglycerides Cholesterol LDL Cholesterol Direct HDL Cholesterol PTH Intact Urine pH Urine WBC (Auto) Urine Creatinine Urine Total Protein Fluid Total Protein Vancomycin Trough Rheumatoid Factor Complement C4 Miscellaneous Test Crossmatch 12/01/16 12/01/16 12/01/16 03:35 05:47 11:52 WBC 12.3 H RBC 2.82 L Hgb 7.8 L Hct 23.7 L MCV MCH MCHC RDW 16.7 H Plt Count Lymph % (Auto) Towns % (Auto) 9.8 H Lymph # Towns # 1.2 H Baso # Seg Neutrophils % Seg Neuts % (Manual) Lymphocytes % (Manual) Monocytes % (Manual) Eosinophils % (Manual) Basophils % (Manual) Nucleated RBC % Seg Neutrophils # 8.4 H Seg Neutrophils # Man Lymphocytes # (Manual) Monocytes # (Manual) Eosinophils # (Manual) Basophils # (Manual) PT INR Fibrinogen dRVVT Confirm Interp Factor V Activity POC ABG pH POC ABG pCO2 POC ABG pO2 ABG pO2 ABG HCO3 ABG Base Excess ABG Hemoglobin Oxyhemoglobin Sodium Potassium Chloride Carbon Dioxide BUN Creatinine Glucose POC Glucose 152 H 152 H Lactic Acid Calcium Phosphorus Magnesium Direct Bilirubin AST ALT Alkaline Phosphatase Lactate Dehydrogenase Troponin T C-Reactive Protein Total Protein Albumin Prealbumin Triglycerides Cholesterol LDL Cholesterol Direct HDL Cholesterol PTH Intact Urine pH Urine WBC (Auto) Urine Creatinine Urine Total Protein Fluid Total Protein Vancomycin Trough Rheumatoid Factor Complement C4 Miscellaneous Test Crossmatch 12/01/16 12/01/16 12/02/16 17:40 23:41 05:00 WBC RBC Hgb Hct MCV MCH MCHC RDW Plt Count Lymph % (Auto) Towns % (Auto) Lymph # Towns # Baso # Seg Neutrophils % Seg Neuts % (Manual) Lymphocytes % (Manual) Monocytes % (Manual) Eosinophils % (Manual) Basophils % (Manual) Nucleated RBC % Seg Neutrophils # Seg Neutrophils # Man Lymphocytes # (Manual) Monocytes # (Manual) Eosinophils # (Manual) Basophils # (Manual) PT INR Fibrinogen dRVVT Confirm Interp Factor V Activity POC ABG pH POC ABG pCO2 POC ABG pO2 ABG pO2 ABG HCO3 ABG Base Excess ABG Hemoglobin Oxyhemoglobin Sodium Potassium Chloride Carbon Dioxide BUN 45 H Creatinine Glucose 115 H POC Glucose 140 H 144 H Lactic Acid Calcium Phosphorus Magnesium Direct Bilirubin AST ALT Alkaline Phosphatase Lactate Dehydrogenase Troponin T C-Reactive Protein Total Protein Albumin Prealbumin Triglycerides Cholesterol LDL Cholesterol Direct HDL Cholesterol PTH Intact Urine pH Urine WBC (Auto) Urine Creatinine Urine Total Protein Fluid Total Protein Vancomycin Trough Rheumatoid Factor Complement C4 Miscellaneous Test Crossmatch 12/02/16 12/02/16 12/02/16 05:31 11:20 17:38 WBC RBC Hgb Hct MCV MCH MCHC RDW Plt Count Lymph % (Auto) Towns % (Auto) Lymph # Towns # Baso # Seg Neutrophils % Seg Neuts % (Manual) Lymphocytes % (Manual) Monocytes % (Manual) Eosinophils % (Manual) Basophils % (Manual) Nucleated RBC % Seg Neutrophils # Seg Neutrophils # Man Lymphocytes # (Manual) Monocytes # (Manual) Eosinophils # (Manual) Basophils # (Manual) PT INR Fibrinogen dRVVT Confirm Interp Factor V Activity POC ABG pH POC ABG pCO2 POC ABG pO2 ABG pO2 ABG HCO3 ABG Base Excess ABG Hemoglobin Oxyhemoglobin Sodium Potassium Chloride Carbon Dioxide BUN Creatinine Glucose POC Glucose 136 H 177 H 139 H Lactic Acid Calcium Phosphorus Magnesium Direct Bilirubin AST ALT Alkaline Phosphatase Lactate Dehydrogenase Troponin T C-Reactive Protein Total Protein Albumin Prealbumin Triglycerides Cholesterol LDL Cholesterol Direct HDL Cholesterol PTH Intact Urine pH Urine WBC (Auto) Urine Creatinine Urine Total Protein Fluid Total Protein Vancomycin Trough Rheumatoid Factor Complement C4 Miscellaneous Test Crossmatch 12/02/16 12/03/16 12/03/16 23:43 04:00 04:00 WBC 20.4 H RBC 2.74 L Hgb 7.4 L Hct 23.6 L MCV MCH 27 L MCHC RDW 17.1 H Plt Count Lymph % (Auto) Towns % (Auto) Lymph # Towns # Baso # Seg Neutrophils % Seg Neuts % (Manual) 31.0 L Lymphocytes % (Manual) Monocytes % (Manual) Eosinophils % (Manual) Basophils % (Manual) Nucleated RBC % Seg Neutrophils # Seg Neutrophils # Man Lymphocytes # (Manual) Monocytes # (Manual) Eosinophils # (Manual) Basophils # (Manual) PT INR Fibrinogen dRVVT Confirm Interp Factor V Activity POC ABG pH POC ABG pCO2 POC ABG pO2 ABG pO2 ABG HCO3 ABG Base Excess ABG Hemoglobin Oxyhemoglobin Sodium Potassium Chloride Carbon Dioxide BUN 61 H Creatinine 1.6 H Glucose 119 H POC Glucose 158 H Lactic Acid Calcium Phosphorus Magnesium Direct Bilirubin AST ALT Alkaline Phosphatase Lactate Dehydrogenase Troponin T C-Reactive Protein Total Protein Albumin Prealbumin Triglycerides Cholesterol LDL Cholesterol Direct HDL Cholesterol PTH Intact Urine pH Urine WBC (Auto) Urine Creatinine Urine Total Protein Fluid Total Protein Vancomycin Trough Rheumatoid Factor Complement C4 Miscellaneous Test Crossmatch 12/03/16 12/03/16 12/03/16 05:02 12:11 18:16 WBC RBC Hgb Hct MCV MCH MCHC RDW Plt Count Lymph % (Auto) Towns % (Auto) Lymph # [place] # Baso # Seg Neutrophils % Seg Neuts % (Manual) Lymphocytes % (Manual) Monocytes % (Manual) Eosinophils % (Manual) Basophils % (Manual) Nucleated RBC % Seg Neutrophils # Seg Neutrophils # Man Lymphocytes # (Manual) Monocytes # (Manual) Eosinophils # (Manual) Basophils # (Manual) PT INR Fibrinogen dRVVT Confirm Interp Factor V Activity POC ABG pH POC ABG pCO2 POC ABG pO2 ABG pO2 ABG HCO3 ABG Base Excess ABG Hemoglobin Oxyhemoglobin Sodium Potassium Chloride Carbon Dioxide BUN Creatinine Glucose POC Glucose 146 H 157 H 124 H Lactic Acid Calcium Phosphorus Magnesium Direct Bilirubin AST ALT Alkaline Phosphatase Lactate Dehydrogenase Troponin T C-Reactive Protein Total Protein Albumin Prealbumin Triglycerides Cholesterol LDL Cholesterol Direct HDL Cholesterol PTH Intact Urine pH Urine WBC (Auto) Urine Creatinine Urine Total Protein Fluid Total Protein Vancomycin Trough Rheumatoid Factor Complement C4 Miscellaneous Test Crossmatch 12/03/16 12/04/16 12/04/16 23:41 04:00 04:45 WBC RBC Hgb Hct MCV MCH MCHC RDW Plt Count Lymph % (Auto) Towns % (Auto) Lymph # [place] # Baso # Seg Neutrophils % Seg Neuts % (Manual) Lymphocytes % (Manual) Monocytes % (Manual) Eosinophils % (Manual) Basophils % (Manual) Nucleated RBC % Seg Neutrophils # Seg Neutrophils # Man Lymphocytes # (Manual) Monocytes # (Manual) Eosinophils # (Manual) Basophils # (Manual) PT INR Fibrinogen dRVVT Confirm Interp Factor V Activity POC ABG pH POC ABG pCO2 POC ABG pO2 ABG pO2 ABG HCO3 ABG Base Excess ABG Hemoglobin Oxyhemoglobin Sodium Potassium Chloride Carbon Dioxide BUN 76 H Creatinine 1.6 H Glucose POC Glucose 130 H 136 H Lactic Acid Calcium Phosphorus Magnesium Direct Bilirubin AST ALT Alkaline Phosphatase 155 H Lactate Dehydrogenase Troponin T C-Reactive Protein Total Protein 5.5 L Albumin 1.5 L Prealbumin Triglycerides Cholesterol LDL Cholesterol Direct HDL Cholesterol PTH Intact Urine pH Urine WBC (Auto) Urine Creatinine Urine Total Protein Fluid Total Protein Vancomycin Trough Rheumatoid Factor Complement C4 Miscellaneous Test Crossmatch 12/04/16 12/04/16 12/05/16 12:08 17:23 00:10 WBC RBC Hgb Hct MCV MCH MCHC RDW Plt Count Lymph % (Auto) Towns % (Auto) Lymph # [place] # Baso # Seg Neutrophils % Seg Neuts % (Manual) Lymphocytes % (Manual) Monocytes % (Manual) Eosinophils % (Manual) Basophils % (Manual) Nucleated RBC % Seg Neutrophils # Seg Neutrophils # Man Lymphocytes # (Manual) Monocytes # (Manual) Eosinophils # (Manual) Basophils # (Manual) PT INR Fibrinogen dRVVT Confirm Interp Factor V Activity POC ABG pH POC ABG pCO2 POC ABG pO2 ABG pO2 ABG HCO3 ABG Base Excess ABG Hemoglobin Oxyhemoglobin Sodium Potassium Chloride Carbon Dioxide BUN Creatinine Glucose POC Glucose 114 H 129 H 124 H Lactic Acid Calcium Phosphorus Magnesium Direct Bilirubin AST ALT Alkaline Phosphatase Lactate Dehydrogenase Troponin T C-Reactive Protein Total Protein Albumin Prealbumin Triglycerides Cholesterol LDL Cholesterol Direct HDL Cholesterol PTH Intact Urine pH Urine WBC (Auto) Urine Creatinine Urine Total Protein Fluid Total Protein Vancomycin Trough Rheumatoid Factor Complement C4 Miscellaneous Test Crossmatch 12/05/16 12/05/16 12/05/16 05:00 05:00 05:18 WBC RBC Hgb Hct MCV MCH MCHC RDW Plt Count Lymph % (Auto) Towns % (Auto) Lymph # [place] # Baso # Seg Neutrophils % Seg Neuts % (Manual) Lymphocytes % (Manual) Monocytes % (Manual) Eosinophils % (Manual) Basophils % (Manual) Nucleated RBC % Seg Neutrophils # Seg Neutrophils # Man Lymphocytes # (Manual) Monocytes # (Manual) Eosinophils # (Manual) Basophils # (Manual) PT INR Fibrinogen dRVVT Confirm Interp Factor V Activity POC ABG pH POC ABG pCO2 POC ABG pO2 ABG pO2 ABG HCO3 ABG Base Excess ABG Hemoglobin Oxyhemoglobin Sodium Potassium Chloride Carbon Dioxide 21 L BUN 85 H Creatinine 1.9 H Glucose 131 H POC Glucose 154 H Lactic Acid Calcium Phosphorus Magnesium Direct Bilirubin AST ALT Alkaline Phosphatase Lactate Dehydrogenase Troponin T C-Reactive Protein 19.30 H Total Protein Albumin Prealbumin Triglycerides Cholesterol LDL Cholesterol Direct HDL Cholesterol PTH Intact Urine pH Urine WBC (Auto) Urine Creatinine Urine Total Protein Fluid Total Protein Vancomycin Trough Rheumatoid Factor Complement C4 Miscellaneous Test Crossmatch 12/05/16 12/05/16 12/05/16 11:43 17:46 23:25 WBC RBC Hgb Hct MCV MCH MCHC RDW Plt Count Lymph % (Auto) Towns % (Auto) Lymph # [place] # Baso # Seg Neutrophils % Seg Neuts % (Manual) Lymphocytes % (Manual) Monocytes % (Manual) Eosinophils % (Manual) Basophils % (Manual) Nucleated RBC % Seg Neutrophils # Seg Neutrophils # Man Lymphocytes # (Manual) Monocytes # (Manual) Eosinophils # (Manual) Basophils # (Manual) PT INR Fibrinogen dRVVT Confirm Interp Factor V Activity POC ABG pH POC ABG pCO2 POC ABG pO2 ABG pO2 ABG HCO3 ABG Base Excess ABG Hemoglobin Oxyhemoglobin Sodium Potassium Chloride Carbon Dioxide BUN Creatinine Glucose POC Glucose 117 H 113 H 111 H Lactic Acid Calcium Phosphorus Magnesium Direct Bilirubin AST ALT Alkaline Phosphatase Lactate Dehydrogenase Troponin T C-Reactive Protein Total Protein Albumin Prealbumin Triglycerides Cholesterol LDL Cholesterol Direct HDL Cholesterol PTH Intact Urine pH Urine WBC (Auto) Urine Creatinine Urine Total Protein Fluid Total Protein Vancomycin Trough Rheumatoid Factor Complement C4 Miscellaneous Test Crossmatch 12/05/16 12/06/16 12/06/16 Unknown 04:58 06:00 WBC RBC Hgb Hct MCV MCH MCHC RDW Plt Count Lymph % (Auto) [place]s % (Auto) Lymph # [place] # Baso # Seg Neutrophils % Seg Neuts % (Manual) Lymphocytes % (Manual) Monocytes % (Manual) Eosinophils % (Manual) Basophils % (Manual) Nucleated RBC % Seg Neutrophils # Seg Neutrophils # Man Lymphocytes # (Manual) Monocytes # (Manual) Eosinophils # (Manual) Basophils # (Manual) PT INR Fibrinogen dRVVT Confirm Interp Factor V Activity POC ABG pH POC ABG pCO2 POC ABG pO2 ABG pO2 75.2 L ABG HCO3 ABG Base Excess -3.4 L ABG Hemoglobin 7.4 L Oxyhemoglobin 94.5 L Sodium Potassium Chloride Carbon Dioxide 20 L BUN 99 H Creatinine 2.1 H Glucose 126 H POC Glucose 145 H Lactic Acid Calcium Phosphorus 4.80 H Magnesium Direct Bilirubin AST ALT Alkaline Phosphatase Lactate Dehydrogenase Troponin T C-Reactive Protein Total Protein Albumin Prealbumin Triglycerides Cholesterol LDL Cholesterol Direct HDL Cholesterol PTH Intact Urine pH Urine WBC (Auto) Urine Creatinine Urine Total Protein Fluid Total Protein Vancomycin Trough Rheumatoid Factor Complement C4 Miscellaneous Test Crossmatch 12/06/16 12/06/16 12/06/16 06:46 11:54 17:55 WBC RBC Hgb 8.3 L Hct 26.4 L MCV MCH MCHC RDW Plt Count Lymph % (Auto) [place]s % (Auto) Lymph # [place] # Baso # Seg Neutrophils % Seg Neuts % (Manual) Lymphocytes % (Manual) Monocytes % (Manual) Eosinophils % (Manual) Basophils % (Manual) Nucleated RBC % Seg Neutrophils # Seg Neutrophils # Man Lymphocytes # (Manual) Monocytes # (Manual) Eosinophils # (Manual) Basophils # (Manual) PT INR Fibrinogen dRVVT Confirm Interp Factor V Activity POC ABG pH POC ABG pCO2 POC ABG pO2 ABG pO2 ABG HCO3 ABG Base Excess ABG Hemoglobin Oxyhemoglobin Sodium Potassium Chloride Carbon Dioxide BUN Creatinine Glucose POC Glucose 126 H 157 H Lactic Acid Calcium Phosphorus Magnesium Direct Bilirubin AST ALT Alkaline Phosphatase Lactate Dehydrogenase Troponin T C-Reactive Protein Total Protein Albumin Prealbumin Triglycerides Cholesterol LDL Cholesterol Direct HDL Cholesterol PTH Intact Urine pH Urine WBC (Auto) Urine Creatinine Urine Total Protein Fluid Total Protein Vancomycin Trough Rheumatoid Factor Complement C4 Miscellaneous Test Crossmatch 12/06/16 12/07/16 12/07/16 23:59 05:34 06:30 WBC RBC Hgb Hct MCV MCH MCHC RDW Plt Count Lymph % (Auto) [place]s % (Auto) Lymph # [place] # Baso # Seg Neutrophils % Seg Neuts % (Manual) Lymphocytes % (Manual) Monocytes % (Manual) Eosinophils % (Manual) Basophils % (Manual) Nucleated RBC % Seg Neutrophils # Seg Neutrophils # Man Lymphocytes # (Manual) Monocytes # (Manual) Eosinophils # (Manual) Basophils # (Manual) PT INR Fibrinogen dRVVT Confirm Interp Factor V Activity POC ABG pH POC ABG pCO2 POC ABG pO2 ABG pO2 ABG HCO3 ABG Base Excess ABG Hemoglobin Oxyhemoglobin Sodium Potassium Chloride Carbon Dioxide BUN 67 H Creatinine 1.4 H Glucose 126 H POC Glucose 129 H 129 H Lactic Acid Calcium Phosphorus Magnesium Direct Bilirubin AST ALT Alkaline Phosphatase Lactate Dehydrogenase Troponin T C-Reactive Protein Total Protein Albumin Prealbumin Triglycerides Cholesterol LDL Cholesterol Direct HDL Cholesterol PTH Intact Urine pH Urine WBC (Auto) Urine Creatinine Urine Total Protein Fluid Total Protein Vancomycin Trough Rheumatoid Factor Complement C4 Miscellaneous Test Crossmatch 12/07/16 12/07/16 12/07/16 06:30 08:00 09:45 WBC 18.8 H RBC 2.52 L Hgb 6.9 L 6.8 L Hct 21.2 L 21.1 L MCV MCH 27 L MCHC RDW 18.0 H Plt Count Lymph % (Auto) Towns % (Auto) 9.9 H Lymph # [place] # 1.9 H Baso # Seg Neutrophils % 71.8 H Seg Neuts % (Manual) Lymphocytes % (Manual) Monocytes % (Manual) Eosinophils % (Manual) Basophils % (Manual) Nucleated RBC % Seg Neutrophils # 13.5 H Seg Neutrophils # Man Lymphocytes # (Manual) Monocytes # (Manual) Eosinophils # (Manual) Basophils # (Manual) PT INR Fibrinogen dRVVT Confirm Interp Factor V Activity POC ABG pH POC ABG pCO2 POC ABG pO2 ABG pO2 ABG HCO3 ABG Base Excess ABG Hemoglobin Oxyhemoglobin Sodium Potassium Chloride Carbon Dioxide BUN Creatinine Glucose POC Glucose Lactic Acid Calcium Phosphorus Magnesium Direct Bilirubin AST ALT Alkaline Phosphatase Lactate Dehydrogenase Troponin T C-Reactive Protein Total Protein Albumin Prealbumin Triglycerides Cholesterol LDL Cholesterol Direct HDL Cholesterol PTH Intact Urine pH Urine WBC (Auto) Urine Creatinine Urine Total Protein Fluid Total Protein Vancomycin Trough Rheumatoid Factor Complement C4 Miscellaneous Test Crossmatch See Detail 12/07/16 12/07/16 12/07/16 11:44 18:19 23:59 WBC RBC Hgb Hct MCV MCH MCHC RDW Plt Count Lymph % (Auto) [place]s % (Auto) Lymph # [place] # Baso # Seg Neutrophils % Seg Neuts % (Manual) Lymphocytes % (Manual) Monocytes % (Manual) Eosinophils % (Manual) Basophils % (Manual) Nucleated RBC % Seg Neutrophils # Seg Neutrophils # Man Lymphocytes # (Manual) Monocytes # (Manual) Eosinophils # (Manual) Basophils # (Manual) PT INR Fibrinogen dRVVT Confirm Interp Factor V Activity POC ABG pH POC ABG pCO2 POC ABG pO2 ABG pO2 ABG HCO3 ABG Base Excess ABG Hemoglobin Oxyhemoglobin Sodium Potassium Chloride Carbon Dioxide BUN Creatinine Glucose POC Glucose 137 H 138 H 133 H Lactic Acid Calcium Phosphorus Magnesium Direct Bilirubin AST ALT Alkaline Phosphatase Lactate Dehydrogenase Troponin T C-Reactive Protein Total Protein Albumin Prealbumin Triglycerides Cholesterol LDL Cholesterol Direct HDL Cholesterol PTH Intact Urine pH Urine WBC (Auto) Urine Creatinine Urine Total Protein Fluid Total Protein Vancomycin Trough Rheumatoid Factor Complement C4 Miscellaneous Test Crossmatch 12/08/16 12/08/16 12/08/16 05:25 05:30 05:30 WBC 23.8 H RBC 2.88 L Hgb 8.1 L Hct 24.3 L MCV MCH MCHC RDW 16.7 H Plt Count Lymph % (Auto) Towns % (Auto) Lymph # [place] # Baso # Seg Neutrophils % Seg Neuts % (Manual) 76.0 H Lymphocytes % (Manual) 9.0 L Monocytes % (Manual) 9.0 H Eosinophils % (Manual) Basophils % (Manual) Nucleated RBC % Seg Neutrophils # Seg Neutrophils # Man 18.1 H Lymphocytes # (Manual) Monocytes # (Manual) 2.1 H Eosinophils # (Manual) Basophils # (Manual) PT INR Fibrinogen dRVVT Confirm Interp Factor V Activity POC ABG pH POC ABG pCO2 POC ABG pO2 ABG pO2 ABG HCO3 ABG Base Excess ABG Hemoglobin Oxyhemoglobin Sodium Potassium Chloride Carbon Dioxide 21 L BUN 76 H Creatinine 1.6 H Glucose 133 H POC Glucose 177 H Lactic Acid Calcium Phosphorus Magnesium Direct Bilirubin AST ALT Alkaline Phosphatase Lactate Dehydrogenase Troponin T C-Reactive Protein Total Protein Albumin Prealbumin Triglycerides Cholesterol LDL Cholesterol Direct HDL Cholesterol PTH Intact Urine pH Urine WBC (Auto) Urine Creatinine Urine Total Protein Fluid Total Protein Vancomycin Trough Rheumatoid Factor Complement C4 Miscellaneous Test Crossmatch 12/08/16 12/08/16 12/09/16 11:45 18:00 00:00 WBC RBC Hgb Hct MCV MCH MCHC RDW Plt Count Lymph % (Auto) [place]s % (Auto) Lymph # [place] # Baso # Seg Neutrophils % Seg Neuts % (Manual) Lymphocytes % (Manual) Monocytes % (Manual) Eosinophils % (Manual) Basophils % (Manual) Nucleated RBC % Seg Neutrophils # Seg Neutrophils # Man Lymphocytes # (Manual) Monocytes # (Manual) Eosinophils # (Manual) Basophils # (Manual) PT INR Fibrinogen dRVVT Confirm Interp Factor V Activity POC ABG pH POC ABG pCO2 POC ABG pO2 ABG pO2 ABG HCO3 ABG Base Excess ABG Hemoglobin Oxyhemoglobin Sodium Potassium Chloride Carbon Dioxide BUN Creatinine Glucose POC Glucose 163 H 123 H 137 H Lactic Acid Calcium Phosphorus Magnesium Direct Bilirubin AST ALT Alkaline Phosphatase Lactate Dehydrogenase Troponin T C-Reactive Protein Total Protein Albumin Prealbumin Triglycerides Cholesterol LDL Cholesterol Direct HDL Cholesterol PTH Intact Urine pH Urine WBC (Auto) Urine Creatinine Urine Total Protein Fluid Total Protein Vancomycin Trough Rheumatoid Factor Complement C4 Miscellaneous Test Crossmatch 12/09/16 12/09/16 12/09/16 05:34 06:00 06:00 WBC 15.5 H RBC 2.87 L Hgb 8.0 L Hct 24.2 L MCV MCH MCHC RDW 17.2 H Plt Count Lymph % (Auto) Towns % (Auto) 11.6 H Lymph # [place]s # 1.8 H Baso # Seg Neutrophils % 70.8 H Seg Neuts % (Manual) Lymphocytes % (Manual) Monocytes % (Manual) Eosinophils % (Manual) Basophils % (Manual) Nucleated RBC % Seg Neutrophils # 11.0 H Seg Neutrophils # Man Lymphocytes # (Manual) Monocytes # (Manual) Eosinophils # (Manual) Basophils # (Manual) PT INR Fibrinogen dRVVT Confirm Interp Factor V Activity POC ABG pH POC ABG pCO2 POC ABG pO2 ABG pO2 ABG HCO3 ABG Base Excess ABG Hemoglobin Oxyhemoglobin Sodium Potassium Chloride Carbon Dioxide BUN 51 H Creatinine Glucose 117 H POC Glucose 136 H Lactic Acid Calcium Phosphorus Magnesium Direct Bilirubin AST ALT Alkaline Phosphatase Lactate Dehydrogenase Troponin T C-Reactive Protein Total Protein Albumin Prealbumin Triglycerides Cholesterol LDL Cholesterol Direct HDL Cholesterol PTH Intact Urine pH Urine WBC (Auto) Urine Creatinine Urine Total Protein Fluid Total Protein Vancomycin Trough Rheumatoid Factor Complement C4 Miscellaneous Test Crossmatch 12/09/16 12/09/16 12/09/16 12:29 17:52 23:10 WBC RBC Hgb Hct MCV MCH MCHC RDW Plt Count Lymph % (Auto) [place]s % (Auto) Lymph # [place] # Baso # Seg Neutrophils % Seg Neuts % (Manual) Lymphocytes % (Manual) Monocytes % (Manual) Eosinophils % (Manual) Basophils % (Manual) Nucleated RBC % Seg Neutrophils # Seg Neutrophils # Man Lymphocytes # (Manual) Monocytes # (Manual) Eosinophils # (Manual) Basophils # (Manual) PT INR Fibrinogen dRVVT Confirm Interp Factor V Activity POC ABG pH POC ABG pCO2 POC ABG pO2 ABG pO2 ABG HCO3 ABG Base Excess ABG Hemoglobin Oxyhemoglobin Sodium Potassium Chloride Carbon Dioxide BUN Creatinine Glucose POC Glucose 139 H 140 H 129 H Lactic Acid Calcium Phosphorus Magnesium Direct Bilirubin AST ALT Alkaline Phosphatase Lactate Dehydrogenase Troponin T C-Reactive Protein Total Protein Albumin Prealbumin Triglycerides Cholesterol LDL Cholesterol Direct HDL Cholesterol PTH Intact Urine pH Urine WBC (Auto) Urine Creatinine Urine Total Protein Fluid Total Protein Vancomycin Trough Rheumatoid Factor Complement C4 Miscellaneous Test Crossmatch 12/10/16 12/10/16 12/10/16 05:00 05:00 06:54 WBC 15.7 H RBC 2.87 L Hgb 8.2 L Hct 24.4 L MCV MCH MCHC RDW 17.2 H Plt Count Lymph % (Auto) Towns % (Auto) 8.3 H Lymph # [place]s # 1.3 H Baso # Seg Neutrophils % 72.8 H Seg Neuts % (Manual) Lymphocytes % (Manual) Monocytes % (Manual) Eosinophils % (Manual) Basophils % (Manual) Nucleated RBC % Seg Neutrophils # 11.4 H Seg Neutrophils # Man Lymphocytes # (Manual) Monocytes # (Manual) Eosinophils # (Manual) Basophils # (Manual) PT INR Fibrinogen dRVVT Confirm Interp Factor V Activity POC ABG pH POC ABG pCO2 POC ABG pO2 ABG pO2 ABG HCO3 ABG Base Excess ABG Hemoglobin Oxyhemoglobin Sodium Potassium Chloride Carbon Dioxide BUN 64 H Creatinine 1.4 H Glucose 134 H POC Glucose 154 H Lactic Acid Calcium Phosphorus Magnesium Direct Bilirubin AST ALT Alkaline Phosphatase Lactate Dehydrogenase Troponin T C-Reactive Protein Total Protein Albumin Prealbumin Triglycerides Cholesterol LDL Cholesterol Direct HDL Cholesterol PTH Intact Urine pH Urine WBC (Auto) Urine Creatinine Urine Total Protein Fluid Total Protein Vancomycin Trough Rheumatoid Factor Complement C4 Miscellaneous Test Crossmatch 12/10/16 12/10/16 12/10/16 11:58 17:29 23:52 WBC RBC Hgb Hct MCV MCH MCHC RDW Plt Count Lymph % (Auto) Towns % (Auto) Lymph # [place] # Baso # Seg Neutrophils % Seg Neuts % (Manual) Lymphocytes % (Manual) Monocytes % (Manual) Eosinophils % (Manual) Basophils % (Manual) Nucleated RBC % Seg Neutrophils # Seg Neutrophils # Man Lymphocytes # (Manual) Monocytes # (Manual) Eosinophils # (Manual) Basophils # (Manual) PT INR Fibrinogen dRVVT Confirm Interp Factor V Activity POC ABG pH POC ABG pCO2 POC ABG pO2 ABG pO2 ABG HCO3 ABG Base Excess ABG Hemoglobin Oxyhemoglobin Sodium Potassium Chloride Carbon Dioxide BUN Creatinine Glucose POC Glucose 144 H 163 H 125 H Lactic Acid Calcium Phosphorus Magnesium Direct Bilirubin AST ALT Alkaline Phosphatase Lactate Dehydrogenase Troponin T C-Reactive Protein Total Protein Albumin Prealbumin Triglycerides Cholesterol LDL Cholesterol Direct HDL Cholesterol PTH Intact Urine pH Urine WBC (Auto) Urine Creatinine Urine Total Protein Fluid Total Protein Vancomycin Trough Rheumatoid Factor Complement C4 Miscellaneous Test Crossmatch 12/11/16 12/11/16 12/11/16 05:38 06:30 06:30 WBC 14.4 H RBC 2.76 L Hgb 7.7 L Hct 23.4 L MCV MCH MCHC RDW 17.2 H Plt Count Lymph % (Auto) Towns % (Auto) 8.8 H Lymph # Towns # 1.3 H Baso # Seg Neutrophils % 72.5 H Seg Neuts % (Manual) Lymphocytes % (Manual) Monocytes % (Manual) Eosinophils % (Manual) Basophils % (Manual) Nucleated RBC % Seg Neutrophils # 10.5 H Seg Neutrophils # Man Lymphocytes # (Manual) Monocytes # (Manual) Eosinophils # (Manual) Basophils # (Manual) PT INR Fibrinogen dRVVT Confirm Interp Factor V Activity POC ABG pH POC ABG pCO2 POC ABG pO2 ABG pO2 ABG HCO3 ABG Base Excess ABG Hemoglobin Oxyhemoglobin Sodium Potassium Chloride Carbon Dioxide BUN 43 H Creatinine Glucose 124 H POC Glucose 141 H Lactic Acid Calcium 8.3 L Phosphorus Magnesium 1.60 L Direct Bilirubin AST ALT Alkaline Phosphatase Lactate Dehydrogenase Troponin T C-Reactive Protein Total Protein Albumin Prealbumin Triglycerides Cholesterol LDL Cholesterol Direct HDL Cholesterol PTH Intact Urine pH Urine WBC (Auto) Urine Creatinine Urine Total Protein Fluid Total Protein Vancomycin Trough Rheumatoid Factor Complement C4 Miscellaneous Test Crossmatch 12/11/16 12/11/16 12/11/16 11:15 17:59 23:48 WBC RBC Hgb Hct MCV MCH MCHC RDW Plt Count Lymph % (Auto) Towns % (Auto) Lymph # Towns # Baso # Seg Neutrophils % Seg Neuts % (Manual) Lymphocytes % (Manual) Monocytes % (Manual) Eosinophils % (Manual) Basophils % (Manual) Nucleated RBC % Seg Neutrophils # Seg Neutrophils # Man Lymphocytes # (Manual) Monocytes # (Manual) Eosinophils # (Manual) Basophils # (Manual) PT INR Fibrinogen dRVVT Confirm Interp Factor V Activity POC ABG pH POC ABG pCO2 POC ABG pO2 ABG pO2 ABG HCO3 ABG Base Excess ABG Hemoglobin Oxyhemoglobin Sodium Potassium Chloride Carbon Dioxide BUN Creatinine Glucose POC Glucose 188 H 106 H 119 H Lactic Acid Calcium Phosphorus Magnesium Direct Bilirubin AST ALT Alkaline Phosphatase Lactate Dehydrogenase Troponin T C-Reactive Protein Total Protein Albumin Prealbumin Triglycerides Cholesterol LDL Cholesterol Direct HDL Cholesterol PTH Intact Urine pH Urine WBC (Auto) Urine Creatinine Urine Total Protein Fluid Total Protein Vancomycin Trough Rheumatoid Factor Complement C4 Miscellaneous Test Crossmatch 12/12/16 12/12/16 12/12/16 05:00 06:01 12:20 WBC 16.7 H RBC 2.87 L Hgb 8.0 L Hct 24.2 L MCV MCH MCHC RDW 17.6 H Plt Count Lymph % (Auto) Towns % (Auto) Lymph # Towns # 1.2 H Baso # Seg Neutrophils % 75.3 H Seg Neuts % (Manual) Lymphocytes % (Manual) Monocytes % (Manual) Eosinophils % (Manual) Basophils % (Manual) Nucleated RBC % Seg Neutrophils # 12.6 H Seg Neutrophils # Man Lymphocytes # (Manual) Monocytes # (Manual) Eosinophils # (Manual) Basophils # (Manual) PT INR Fibrinogen dRVVT Confirm Interp Factor V Activity POC ABG pH POC ABG pCO2 POC ABG pO2 ABG pO2 ABG HCO3 ABG Base Excess ABG Hemoglobin Oxyhemoglobin Sodium Potassium Chloride Carbon Dioxide BUN Creatinine Glucose POC Glucose 134 H 149 H Lactic Acid Calcium Phosphorus Magnesium Direct Bilirubin AST ALT Alkaline Phosphatase Lactate Dehydrogenase Troponin T C-Reactive Protein Total Protein Albumin Prealbumin Triglycerides Cholesterol LDL Cholesterol Direct HDL Cholesterol PTH Intact Urine pH Urine WBC (Auto) Urine Creatinine Urine Total Protein Fluid Total Protein Vancomycin Trough Rheumatoid Factor Complement C4 Miscellaneous Test Crossmatch 12/12/16 12/12/16 12/12/16 17:38 23:01 Unknown WBC RBC Hgb Hct MCV MCH MCHC RDW Plt Count Lymph % (Auto) Towns % (Auto) Lymph # Towns # Baso # Seg Neutrophils % Seg Neuts % (Manual) Lymphocytes % (Manual) Monocytes % (Manual) Eosinophils % (Manual) Basophils % (Manual) Nucleated RBC % Seg Neutrophils # Seg Neutrophils # Man Lymphocytes # (Manual) Monocytes # (Manual) Eosinophils # (Manual) Basophils # (Manual) PT INR Fibrinogen dRVVT Confirm Interp Factor V Activity POC ABG pH POC ABG pCO2 POC ABG pO2 ABG pO2 ABG HCO3 ABG Base Excess ABG Hemoglobin Oxyhemoglobin Sodium Potassium Chloride Carbon Dioxide BUN 60 H Creatinine 1.3 H Glucose 126 H POC Glucose 127 H 144 H Lactic Acid Calcium Phosphorus Magnesium Direct Bilirubin AST ALT Alkaline Phosphatase Lactate Dehydrogenase Troponin T C-Reactive Protein Total Protein Albumin Prealbumin Triglycerides Cholesterol LDL Cholesterol Direct HDL Cholesterol PTH Intact Urine pH Urine WBC (Auto) Urine Creatinine Urine Total Protein Fluid Total Protein Vancomycin Trough Rheumatoid Factor Complement C4 Miscellaneous Test Crossmatch 12/13/16 12/13/16 12/13/16 04:00 04:00 05:19 WBC 18.7 H RBC 2.89 L Hgb 8.3 L Hct 24.6 L MCV MCH MCHC RDW 17.5 H Plt Count Lymph % (Auto) Towns % (Auto) Lymph # Towns # 1.3 H Baso # Seg Neutrophils % 71.5 H Seg Neuts % (Manual) Lymphocytes % (Manual) Monocytes % (Manual) Eosinophils % (Manual) Basophils % (Manual) Nucleated RBC % Seg Neutrophils # 13.4 H Seg Neutrophils # Man Lymphocytes # (Manual) Monocytes # (Manual) Eosinophils # (Manual) Basophils # (Manual) PT INR Fibrinogen dRVVT Confirm Interp Factor V Activity POC ABG pH POC ABG pCO2 POC ABG pO2 ABG pO2 ABG HCO3 ABG Base Excess ABG Hemoglobin Oxyhemoglobin Sodium Potassium Chloride Carbon Dioxide BUN 73 H Creatinine 1.5 H Glucose 141 H POC Glucose 171 H Lactic Acid Calcium Phosphorus Magnesium Direct Bilirubin AST ALT Alkaline Phosphatase Lactate Dehydrogenase Troponin T C-Reactive Protein Total Protein Albumin Prealbumin Triglycerides Cholesterol LDL Cholesterol Direct HDL Cholesterol PTH Intact Urine pH Urine WBC (Auto) Urine Creatinine Urine Total Protein Fluid Total Protein Vancomycin Trough Rheumatoid Factor Complement C4 Miscellaneous Test Crossmatch 12/13/16 12/13/16 12/14/16 12:28 16:48 00:01 WBC RBC Hgb Hct MCV MCH MCHC RDW Plt Count Lymph % (Auto) Towns % (Auto) Lymph # Towns # Baso # Seg Neutrophils % Seg Neuts % (Manual) Lymphocytes % (Manual) Monocytes % (Manual) Eosinophils % (Manual) Basophils % (Manual) Nucleated RBC % Seg Neutrophils # Seg Neutrophils # Man Lymphocytes # (Manual) Monocytes # (Manual) Eosinophils # (Manual) Basophils # (Manual) PT INR Fibrinogen dRVVT Confirm Interp Factor V Activity POC ABG pH POC ABG pCO2 POC ABG pO2 ABG pO2 ABG HCO3 ABG Base Excess ABG Hemoglobin Oxyhemoglobin Sodium Potassium Chloride Carbon Dioxide BUN Creatinine Glucose POC Glucose 206 H 173 H 139 H Lactic Acid Calcium Phosphorus Magnesium Direct Bilirubin AST ALT Alkaline Phosphatase Lactate Dehydrogenase Troponin T C-Reactive Protein Total Protein Albumin Prealbumin Triglycerides Cholesterol LDL Cholesterol Direct HDL Cholesterol PTH Intact Urine pH Urine WBC (Auto) Urine Creatinine Urine Total Protein Fluid Total Protein Vancomycin Trough Rheumatoid Factor Complement C4 Miscellaneous Test Crossmatch 12/14/16 12/14/16 12/14/16 05:16 06:10 11:17 WBC RBC Hgb Hct MCV MCH MCHC RDW Plt Count Lymph % (Auto) Towns % (Auto) Lymph # Towns # Baso # Seg Neutrophils % Seg Neuts % (Manual) Lymphocytes % (Manual) Monocytes % (Manual) Eosinophils % (Manual) Basophils % (Manual) Nucleated RBC % Seg Neutrophils # Seg Neutrophils # Man Lymphocytes # (Manual) Monocytes # (Manual) Eosinophils # (Manual) Basophils # (Manual) PT INR Fibrinogen dRVVT Confirm Interp Factor V Activity POC ABG pH POC ABG pCO2 POC ABG pO2 ABG pO2 ABG HCO3 ABG Base Excess ABG Hemoglobin Oxyhemoglobin Sodium Potassium Chloride Carbon Dioxide BUN 57 H Creatinine 1.4 H Glucose 135 H POC Glucose 158 H 137 H Lactic Acid Calcium Phosphorus Magnesium Direct Bilirubin AST ALT Alkaline Phosphatase Lactate Dehydrogenase Troponin T C-Reactive Protein Total Protein Albumin Prealbumin Triglycerides Cholesterol LDL Cholesterol Direct HDL Cholesterol PTH Intact Urine pH Urine WBC (Auto) Urine Creatinine Urine Total Protein Fluid Total Protein Vancomycin Trough Rheumatoid Factor Complement C4 Miscellaneous Test Crossmatch 12/14/16 12/14/16 12/15/16 17:52 23:27 04:00 WBC RBC Hgb Hct MCV MCH MCHC RDW Plt Count Lymph % (Auto) Towns % (Auto) Lymph # Towns # Baso # Seg Neutrophils % Seg Neuts % (Manual) Lymphocytes % (Manual) Monocytes % (Manual) Eosinophils % (Manual) Basophils % (Manual) Nucleated RBC % Seg Neutrophils # Seg Neutrophils # Man Lymphocytes # (Manual) Monocytes # (Manual) Eosinophils # (Manual) Basophils # (Manual) PT INR Fibrinogen dRVVT Confirm Interp Factor V Activity POC ABG pH POC ABG pCO2 POC ABG pO2 ABG pO2 ABG HCO3 ABG Base Excess ABG Hemoglobin Oxyhemoglobin Sodium Potassium Chloride 97.9 L Carbon Dioxide BUN 75 H Creatinine 1.6 H Glucose 122 H POC Glucose 149 H 163 H Lactic Acid Calcium Phosphorus 5.20 H Magnesium Direct Bilirubin AST ALT Alkaline Phosphatase Lactate Dehydrogenase Troponin T C-Reactive Protein Total Protein Albumin Prealbumin Triglycerides Cholesterol LDL Cholesterol Direct HDL Cholesterol PTH Intact Urine pH Urine WBC (Auto) Urine Creatinine Urine Total Protein Fluid Total Protein Vancomycin Trough Rheumatoid Factor Complement C4 Miscellaneous Test Crossmatch 12/15/16 12/15/16 12/15/16 05:50 11:24 17:01 WBC RBC Hgb Hct MCV MCH MCHC RDW Plt Count Lymph % (Auto) Towns % (Auto) Lymph # [place] # Baso # Seg Neutrophils % Seg Neuts % (Manual) Lymphocytes % (Manual) Monocytes % (Manual) Eosinophils % (Manual) Basophils % (Manual) Nucleated RBC % Seg Neutrophils # Seg Neutrophils # Man Lymphocytes # (Manual) Monocytes # (Manual) Eosinophils # (Manual) Basophils # (Manual) PT INR Fibrinogen dRVVT Confirm Interp Factor V Activity POC ABG pH POC ABG pCO2 POC ABG pO2 ABG pO2 ABG HCO3 ABG Base Excess ABG Hemoglobin Oxyhemoglobin Sodium Potassium Chloride Carbon Dioxide BUN Creatinine Glucose POC Glucose 150 H 146 H 167 H Lactic Acid Calcium Phosphorus Magnesium Direct Bilirubin AST ALT Alkaline Phosphatase Lactate Dehydrogenase Troponin T C-Reactive Protein Total Protein Albumin Prealbumin Triglycerides Cholesterol LDL Cholesterol Direct HDL Cholesterol PTH Intact Urine pH Urine WBC (Auto) Urine Creatinine Urine Total Protein Fluid Total Protein Vancomycin Trough Rheumatoid Factor Complement C4 Miscellaneous Test Crossmatch 12/15/16 12/16/16 12/16/16 23:34 05:25 11:24 WBC RBC Hgb Hct MCV MCH MCHC RDW Plt Count Lymph % (Auto) Towns % (Auto) Lymph # [place] # Baso # Seg Neutrophils % Seg Neuts % (Manual) Lymphocytes % (Manual) Monocytes % (Manual) Eosinophils % (Manual) Basophils % (Manual) Nucleated RBC % Seg Neutrophils # Seg Neutrophils # Man Lymphocytes # (Manual) Monocytes # (Manual) Eosinophils # (Manual) Basophils # (Manual) PT INR Fibrinogen dRVVT Confirm Interp Factor V Activity POC ABG pH POC ABG pCO2 POC ABG pO2 ABG pO2 ABG HCO3 ABG Base Excess ABG Hemoglobin Oxyhemoglobin Sodium Potassium Chloride Carbon Dioxide BUN Creatinine Glucose POC Glucose 127 H 139 H 165 H Lactic Acid Calcium Phosphorus Magnesium Direct Bilirubin AST ALT Alkaline Phosphatase Lactate Dehydrogenase Troponin T C-Reactive Protein Total Protein Albumin Prealbumin Triglycerides Cholesterol LDL Cholesterol Direct HDL Cholesterol PTH Intact Urine pH Urine WBC (Auto) Urine Creatinine Urine Total Protein Fluid Total Protein Vancomycin Trough Rheumatoid Factor Complement C4 Miscellaneous Test Crossmatch 12/16/16 12/16/16 12/16/16 15:30 16:25 17:31 WBC 17.8 H RBC 2.38 L Hgb 6.4 L Hct 20.3 L MCV MCH 27 L MCHC RDW 17.4 H Plt Count Lymph % (Auto) Towns % (Auto) Lymph # [place] # Baso # Seg Neutrophils % Seg Neuts % (Manual) Lymphocytes % (Manual) Monocytes % (Manual) 10.0 H Eosinophils % (Manual) Basophils % (Manual) Nucleated RBC % Seg Neutrophils # Seg Neutrophils # Man 8.5 H Lymphocytes # (Manual) Monocytes # (Manual) 1.8 H Eosinophils # (Manual) Basophils # (Manual) PT INR Fibrinogen dRVVT Confirm Interp Factor V Activity POC ABG pH POC ABG pCO2 POC ABG pO2 ABG pO2 ABG HCO3 ABG Base Excess ABG Hemoglobin Oxyhemoglobin Sodium Potassium Chloride Carbon Dioxide BUN Creatinine Glucose POC Glucose 176 H Lactic Acid Calcium Phosphorus Magnesium Direct Bilirubin AST ALT Alkaline Phosphatase Lactate Dehydrogenase Troponin T C-Reactive Protein Total Protein Albumin Prealbumin Triglycerides Cholesterol LDL Cholesterol Direct HDL Cholesterol PTH Intact Urine pH Urine WBC (Auto) Urine Creatinine Urine Total Protein Fluid Total Protein Vancomycin Trough Rheumatoid Factor Complement C4 Miscellaneous Test Crossmatch See Detail 12/17/16 12/17/16 12/17/16 00:14 04:00 05:00 WBC 20.0 H RBC 2.99 L Hgb 8.5 L Hct 25.7 L MCV MCH MCHC RDW 17.2 H Plt Count Lymph % (Auto) Towns % (Auto) Lymph # [place] # Baso # Seg Neutrophils % Seg Neuts % (Manual) Lymphocytes % (Manual) Monocytes % (Manual) Eosinophils % (Manual) Basophils % (Manual) Nucleated RBC % Seg Neutrophils # Seg Neutrophils # Man Lymphocytes # (Manual) Monocytes # (Manual) Eosinophils # (Manual) Basophils # (Manual) PT INR Fibrinogen dRVVT Confirm Interp Factor V Activity POC ABG pH POC ABG pCO2 POC ABG pO2 ABG pO2 ABG HCO3 ABG Base Excess ABG Hemoglobin Oxyhemoglobin Sodium Potassium Chloride 97.7 L Carbon Dioxide BUN 73 H Creatinine 1.7 H Glucose 136 H POC Glucose 148 H Lactic Acid Calcium Phosphorus 2.20 L Magnesium 2.70 H Direct Bilirubin AST ALT Alkaline Phosphatase Lactate Dehydrogenase Troponin T C-Reactive Protein Total Protein Albumin Prealbumin Triglycerides Cholesterol LDL Cholesterol Direct HDL Cholesterol PTH Intact Urine pH Urine WBC (Auto) Urine Creatinine Urine Total Protein Fluid Total Protein Vancomycin Trough Rheumatoid Factor Complement C4 Miscellaneous Test Crossmatch 12/17/16 12/17/16 12/17/16 05:39 12:50 16:32 WBC RBC Hgb Hct MCV MCH MCHC RDW Plt Count Lymph % (Auto) Towns % (Auto) Lymph # [place] # Baso # Seg Neutrophils % Seg Neuts % (Manual) Lymphocytes % (Manual) Monocytes % (Manual) Eosinophils % (Manual) Basophils % (Manual) Nucleated RBC % Seg Neutrophils # Seg Neutrophils # Man Lymphocytes # (Manual) Monocytes # (Manual) Eosinophils # (Manual) Basophils # (Manual) PT INR Fibrinogen dRVVT Confirm Interp Factor V Activity POC ABG pH POC ABG pCO2 POC ABG pO2 ABG pO2 ABG HCO3 ABG Base Excess ABG Hemoglobin Oxyhemoglobin Sodium Potassium Chloride Carbon Dioxide BUN Creatinine Glucose POC Glucose 162 H 146 H 169 H Lactic Acid Calcium Phosphorus Magnesium Direct Bilirubin AST ALT Alkaline Phosphatase Lactate Dehydrogenase Troponin T C-Reactive Protein Total Protein Albumin Prealbumin Triglycerides Cholesterol LDL Cholesterol Direct HDL Cholesterol PTH Intact Urine pH Urine WBC (Auto) Urine Creatinine Urine Total Protein Fluid Total Protein Vancomycin Trough Rheumatoid Factor Complement C4 Miscellaneous Test Crossmatch 12/17/16 12/18/16 12/18/16 23:57 05:00 05:32 WBC RBC Hgb Hct MCV MCH MCHC RDW Plt Count Lymph % (Auto) Towns % (Auto) Lymph # [place] # Baso # Seg Neutrophils % Seg Neuts % (Manual) Lymphocytes % (Manual) Monocytes % (Manual) Eosinophils % (Manual) Basophils % (Manual) Nucleated RBC % Seg Neutrophils # Seg Neutrophils # Man Lymphocytes # (Manual) Monocytes # (Manual) Eosinophils # (Manual) Basophils # (Manual) PT INR Fibrinogen dRVVT Confirm Interp Factor V Activity POC ABG pH POC ABG pCO2 POC ABG pO2 ABG pO2 ABG HCO3 ABG Base Excess ABG Hemoglobin Oxyhemoglobin Sodium Potassium Chloride 97.0 L Carbon Dioxide BUN 63 H Creatinine 1.4 H Glucose 174 H POC Glucose 145 H 201 H Lactic Acid Calcium Phosphorus 1.70 L D Magnesium Direct Bilirubin AST ALT Alkaline Phosphatase 257 H Lactate Dehydrogenase Troponin T C-Reactive Protein Total Protein 5.9 L Albumin 1.8 L Prealbumin Triglycerides Cholesterol LDL Cholesterol Direct HDL Cholesterol PTH Intact Urine pH Urine WBC (Auto) Urine Creatinine Urine Total Protein Fluid Total Protein Vancomycin Trough Rheumatoid Factor Complement C4 Miscellaneous Test Crossmatch 12/18/16 12/18/16 12/18/16 11:43 16:52 23:52 WBC RBC Hgb Hct MCV MCH MCHC RDW Plt Count Lymph % (Auto) [place] % (Auto) Lymph # [place] # Baso # Seg Neutrophils % Seg Neuts % (Manual) Lymphocytes % (Manual) Monocytes % (Manual) Eosinophils % (Manual) Basophils % (Manual) Nucleated RBC % Seg Neutrophils # Seg Neutrophils # Man Lymphocytes # (Manual) Monocytes # (Manual) Eosinophils # (Manual) Basophils # (Manual) PT INR Fibrinogen dRVVT Confirm Interp Factor V Activity POC ABG pH POC ABG pCO2 POC ABG pO2 ABG pO2 ABG HCO3 ABG Base Excess ABG Hemoglobin Oxyhemoglobin Sodium Potassium Chloride Carbon Dioxide BUN Creatinine Glucose POC Glucose 177 H 110 H 162 H Lactic Acid Calcium Phosphorus Magnesium Direct Bilirubin AST ALT Alkaline Phosphatase Lactate Dehydrogenase Troponin T C-Reactive Protein Total Protein Albumin Prealbumin Triglycerides Cholesterol LDL Cholesterol Direct HDL Cholesterol PTH Intact Urine pH Urine WBC (Auto) Urine Creatinine Urine Total Protein Fluid Total Protein Vancomycin Trough Rheumatoid Factor Complement C4 Miscellaneous Test Crossmatch 12/19/16 12/19/16 12/19/16 05:02 05:24 09:30 WBC 20.1 H RBC 2.73 L Hgb 7.6 L Hct 23.6 L MCV MCH MCHC RDW 17.6 H Plt Count Lymph % (Auto) [place]s % (Auto) Lymph # [place] # Baso # Seg Neutrophils % Seg Neuts % (Manual) Lymphocytes % (Manual) 13.0 L Monocytes % (Manual) Eosinophils % (Manual) Basophils % (Manual) Nucleated RBC % 1.0 H Seg Neutrophils # Seg Neutrophils # Man 12.9 H Lymphocytes # (Manual) Monocytes # (Manual) 1.4 H Eosinophils # (Manual) Basophils # (Manual) 0.2 H PT INR Fibrinogen dRVVT Confirm Interp Factor V Activity POC ABG pH POC ABG pCO2 POC ABG pO2 ABG pO2 ABG HCO3 ABG Base Excess ABG Hemoglobin Oxyhemoglobin Sodium Potassium Chloride 97.8 L Carbon Dioxide BUN 84 H Creatinine 1.6 H Glucose 133 H POC Glucose 134 H Lactic Acid Calcium Phosphorus Magnesium Direct Bilirubin AST ALT Alkaline Phosphatase Lactate Dehydrogenase Troponin T C-Reactive Protein Total Protein Albumin Prealbumin Triglycerides Cholesterol LDL Cholesterol Direct HDL Cholesterol PTH Intact Urine pH Urine WBC (Auto) Urine Creatinine Urine Total Protein Fluid Total Protein Vancomycin Trough Rheumatoid Factor Complement C4 Miscellaneous Test Crossmatch 12/19/16 12/19/16 12/19/16 09:36 11:12 18:29 WBC RBC Hgb Hct MCV MCH MCHC RDW Plt Count Lymph % (Auto) [place]s % (Auto) Lymph # [place] # Baso # Seg Neutrophils % Seg Neuts % (Manual) Lymphocytes % (Manual) Monocytes % (Manual) Eosinophils % (Manual) Basophils % (Manual) Nucleated RBC % Seg Neutrophils # Seg Neutrophils # Man Lymphocytes # (Manual) Monocytes # (Manual) Eosinophils # (Manual) Basophils # (Manual) PT INR Fibrinogen dRVVT Confirm Interp Factor V Activity POC ABG pH 7.503 H POC ABG pCO2 30.1 L POC ABG pO2 ABG pO2 ABG HCO3 ABG Base Excess ABG Hemoglobin Oxyhemoglobin Sodium Potassium Chloride Carbon Dioxide BUN Creatinine Glucose POC Glucose 138 H 156 H Lactic Acid Calcium Phosphorus Magnesium Direct Bilirubin AST ALT Alkaline Phosphatase Lactate Dehydrogenase Troponin T C-Reactive Protein Total Protein Albumin Prealbumin Triglycerides Cholesterol LDL Cholesterol Direct HDL Cholesterol PTH Intact Urine pH Urine WBC (Auto) Urine Creatinine Urine Total Protein Fluid Total Protein Vancomycin Trough Rheumatoid Factor Complement C4 Miscellaneous Test Crossmatch 12/20/16 12/20/16 12/20/16 00:03 06:17 07:07 WBC RBC Hgb Hct MCV MCH MCHC RDW Plt Count Lymph % (Auto) [place]s % (Auto) Lymph # [place] # Baso # Seg Neutrophils % Seg Neuts % (Manual) Lymphocytes % (Manual) Monocytes % (Manual) Eosinophils % (Manual) Basophils % (Manual) Nucleated RBC % Seg Neutrophils # Seg Neutrophils # Man Lymphocytes # (Manual) Monocytes # (Manual) Eosinophils # (Manual) Basophils # (Manual) PT INR Fibrinogen dRVVT Confirm Interp Factor V Activity POC ABG pH POC ABG pCO2 POC ABG pO2 ABG pO2 ABG HCO3 ABG Base Excess ABG Hemoglobin Oxyhemoglobin Sodium Potassium Chloride 97.1 L Carbon Dioxide 20 L BUN 97 H Creatinine 1.8 H Glucose 153 H POC Glucose 152 H 175 H Lactic Acid Calcium Phosphorus Magnesium Direct Bilirubin AST ALT Alkaline Phosphatase Lactate Dehydrogenase Troponin T C-Reactive Protein Total Protein Albumin Prealbumin Triglycerides Cholesterol LDL Cholesterol Direct HDL Cholesterol PTH Intact Urine pH Urine WBC (Auto) Urine Creatinine Urine Total Protein Fluid Total Protein Vancomycin Trough Rheumatoid Factor Complement C4 Miscellaneous Test Crossmatch 12/20/16 12/20/1612/20/17 12:00 17:42 23:53 WBC RBC Hgb Hct MCV MCH MCHC RDW Plt Count Lymph % (Auto) [place]s % (Auto) Lymph # [place] # Baso # Seg Neutrophils % Seg Neuts % (Manual) Lymphocytes % (Manual) Monocytes % (Manual) Eosinophils % (Manual) Basophils % (Manual) Nucleated RBC % Seg Neutrophils # Seg Neutrophils # Man Lymphocytes # (Manual) Monocytes # (Manual) Eosinophils # (Manual) Basophils # (Manual) PT INR Fibrinogen dRVVT Confirm Interp Factor V Activity POC ABG pH POC ABG pCO2 POC ABG pO2 ABG pO2 ABG HCO3 ABG Base Excess ABG Hemoglobin Oxyhemoglobin Sodium Potassium Chloride Carbon Dioxide BUN Creatinine Glucose POC Glucose 141 H 156 H 132 H Lactic Acid Calcium Phosphorus Magnesium Direct Bilirubin AST ALT Alkaline Phosphatase Lactate Dehydrogenase Troponin T C-Reactive Protein Total Protein Albumin Prealbumin Triglycerides Cholesterol LDL Cholesterol Direct HDL Cholesterol PTH Intact Urine pH Urine WBC (Auto) Urine Creatinine Urine Total Protein Fluid Total Protein Vancomycin Trough Rheumatoid Factor Complement C4 Miscellaneous Test Crossmatch 12/21/16 12/21/16 12/21/16 05:49 08:50 12:19 WBC RBC Hgb Hct MCV MCH MCHC RDW Plt Count Lymph % (Auto) Towns % (Auto) Lymph # [place] # Baso # Seg Neutrophils % Seg Neuts % (Manual) Lymphocytes % (Manual) Monocytes % (Manual) Eosinophils % (Manual) Basophils % (Manual) Nucleated RBC % Seg Neutrophils # Seg Neutrophils # Man Lymphocytes # (Manual) Monocytes # (Manual) Eosinophils # (Manual) Basophils # (Manual) PT INR Fibrinogen dRVVT Confirm Interp Factor V Activity POC ABG pH POC ABG pCO2 POC ABG pO2 ABG pO2 ABG HCO3 ABG Base Excess ABG Hemoglobin Oxyhemoglobin Sodium Potassium 5.2 H D Chloride Carbon Dioxide BUN 63 H Creatinine Glucose 122 H POC Glucose 132 H 136 H Lactic Acid Calcium 8.3 L Phosphorus Magnesium Direct Bilirubin AST ALT Alkaline Phosphatase Lactate Dehydrogenase Troponin T C-Reactive Protein Total Protein Albumin Prealbumin Triglycerides Cholesterol LDL Cholesterol Direct HDL Cholesterol PTH Intact Urine pH Urine WBC (Auto) Urine Creatinine Urine Total Protein Fluid Total Protein Vancomycin Trough Rheumatoid Factor Complement C4 Miscellaneous Test Crossmatch 12/21/16 12/21/16 12/22/16 17:22 23:58 05:49 WBC RBC Hgb Hct MCV MCH MCHC RDW Plt Count Lymph % (Auto) Towns % (Auto) Lymph # Town[place] # Baso # Seg Neutrophils % Seg Neuts % (Manual) Lymphocytes % (Manual) Monocytes % (Manual) Eosinophils % (Manual) Basophils % (Manual) Nucleated RBC % Seg Neutrophils # Seg Neutrophils # Man Lymphocytes # (Manual) Monocytes # (Manual) Eosinophils # (Manual) Basophils # (Manual) PT INR Fibrinogen dRVVT Confirm Interp Factor V Activity POC ABG pH POC ABG pCO2 POC ABG pO2 ABG pO2 ABG HCO3 ABG Base Excess ABG Hemoglobin Oxyhemoglobin Sodium Potassium Chloride Carbon Dioxide BUN Creatinine Glucose POC Glucose 135 H 149 H 140 H Lactic Acid Calcium Phosphorus Magnesium Direct Bilirubin AST ALT Alkaline Phosphatase Lactate Dehydrogenase Troponin T C-Reactive Protein Total Protein Albumin Prealbumin Triglycerides Cholesterol LDL Cholesterol Direct HDL Cholesterol PTH Intact Urine pH Urine WBC (Auto) Urine Creatinine Urine Total Protein Fluid Total Protein Vancomycin Trough Rheumatoid Factor Complement C4 Miscellaneous Test Crossmatch 12/22/16 12/22/16 12/22/16 06:10 11:17 17:31 WBC RBC Hgb Hct MCV MCH MCHC RDW Plt Count Lymph % (Auto) Towns % (Auto) Lymph # Town[place] # Baso # Seg Neutrophils % Seg Neuts % (Manual) Lymphocytes % (Manual) Monocytes % (Manual) Eosinophils % (Manual) Basophils % (Manual) Nucleated RBC % Seg Neutrophils # Seg Neutrophils # Man Lymphocytes # (Manual) Monocytes # (Manual) Eosinophils # (Manual) Basophils # (Manual) PT INR Fibrinogen dRVVT Confirm Interp Factor V Activity POC ABG pH POC ABG pCO2 POC ABG pO2 ABG pO2 ABG HCO3 ABG Base Excess ABG Hemoglobin Oxyhemoglobin Sodium Potassium Chloride Carbon Dioxide BUN 76 H Creatinine 1.5 H Glucose 241 H POC Glucose 193 H 148 H Lactic Acid Calcium Phosphorus Magnesium Direct Bilirubin AST ALT Alkaline Phosphatase Lactate Dehydrogenase Troponin T C-Reactive Protein Total Protein Albumin Prealbumin Triglycerides Cholesterol LDL Cholesterol Direct HDL Cholesterol PTH Intact Urine pH Urine WBC (Auto) Urine Creatinine Urine Total Protein Fluid Total Protein Vancomycin Trough Rheumatoid Factor Complement C4 Miscellaneous Test Crossmatch 12/22/16 12/23/16 12/23/16 23:58 05:00 05:26 WBC RBC Hgb Hct MCV MCH MCHC RDW Plt Count Lymph % (Auto) Towns % (Auto) Lymph # Town[place] # Baso # Seg Neutrophils % Seg Neuts % (Manual) Lymphocytes % (Manual) Monocytes % (Manual) Eosinophils % (Manual) Basophils % (Manual) Nucleated RBC % Seg Neutrophils # Seg Neutrophils # Man Lymphocytes # (Manual) Monocytes # (Manual) Eosinophils # (Manual) Basophils # (Manual) PT INR Fibrinogen dRVVT Confirm Interp Factor V Activity POC ABG pH POC ABG pCO2 POC ABG pO2 ABG pO2 ABG HCO3 ABG Base Excess ABG Hemoglobin Oxyhemoglobin Sodium Potassium Chloride Carbon Dioxide BUN 49 H Creatinine Glucose 143 H POC Glucose 165 H 154 H Lactic Acid Calcium 8.2 L Phosphorus Magnesium 1.60 L Direct Bilirubin AST ALT Alkaline Phosphatase Lactate Dehydrogenase Troponin T C-Reactive Protein Total Protein Albumin Prealbumin Triglycerides Cholesterol LDL Cholesterol Direct HDL Cholesterol PTH Intact Urine pH Urine WBC (Auto) Urine Creatinine Urine Total Protein Fluid Total Protein Vancomycin Trough Rheumatoid Factor Complement C4 Miscellaneous Test Crossmatch 12/23/16 12/23/16 12/24/16 12:35 17:01 00:01 WBC RBC Hgb Hct MCV MCH MCHC RDW Plt Count Lymph % (Auto) Towns % (Auto) Lymph # Towns # Baso # Seg Neutrophils % Seg Neuts % (Manual) Lymphocytes % (Manual) Monocytes % (Manual) Eosinophils % (Manual) Basophils % (Manual) Nucleated RBC % Seg Neutrophils # Seg Neutrophils # Man Lymphocytes # (Manual) Monocytes # (Manual) Eosinophils # (Manual) Basophils # (Manual) PT INR Fibrinogen dRVVT Confirm Interp Factor V Activity POC ABG pH POC ABG pCO2 POC ABG pO2 ABG pO2 ABG HCO3 ABG Base Excess ABG Hemoglobin Oxyhemoglobin Sodium Potassium Chloride Carbon Dioxide BUN Creatinine Glucose POC Glucose 164 H 149 H 135 H Lactic Acid Calcium Phosphorus Magnesium Direct Bilirubin AST ALT Alkaline Phosphatase Lactate Dehydrogenase Troponin T C-Reactive Protein Total Protein Albumin Prealbumin Triglycerides Cholesterol LDL Cholesterol Direct HDL Cholesterol PTH Intact Urine pH Urine WBC (Auto) Urine Creatinine Urine Total Protein Fluid Total Protein Vancomycin Trough Rheumatoid Factor Complement C4 Miscellaneous Test Crossmatch 12/24/16 12/24/16 12/24/16 05:41 07:01 11:38 WBC RBC Hgb Hct MCV MCH MCHC RDW Plt Count Lymph % (Auto) Towns % (Auto) Lymph # Towns # Baso # Seg Neutrophils % Seg Neuts % (Manual) Lymphocytes % (Manual) Monocytes % (Manual) Eosinophils % (Manual) Basophils % (Manual) Nucleated RBC % Seg Neutrophils # Seg Neutrophils # Man Lymphocytes # (Manual) Monocytes # (Manual) Eosinophils # (Manual) Basophils # (Manual) PT INR Fibrinogen dRVVT Confirm Interp Factor V Activity POC ABG pH POC ABG pCO2 POC ABG pO2 ABG pO2 ABG HCO3 ABG Base Excess ABG Hemoglobin Oxyhemoglobin Sodium Potassium Chloride Carbon Dioxide BUN 72 H Creatinine 1.3 H Glucose 130 H POC Glucose 132 H 156 H Lactic Acid Calcium 8.2 L Phosphorus Magnesium Direct Bilirubin AST ALT Alkaline Phosphatase Lactate Dehydrogenase Troponin T C-Reactive Protein Total Protein Albumin Prealbumin Triglycerides Cholesterol LDL Cholesterol Direct HDL Cholesterol PTH Intact Urine pH Urine WBC (Auto) Urine Creatinine Urine Total Protein Fluid Total Protein Vancomycin Trough Rheumatoid Factor Complement C4 Miscellaneous Test Crossmatch 12/24/16 12/25/16 12/25/16 17:53 00:23 05:45 WBC RBC Hgb Hct MCV MCH MCHC RDW Plt Count Lymph % (Auto) Towns % (Auto) Lymph # Towns # Baso # Seg Neutrophils % Seg Neuts % (Manual) Lymphocytes % (Manual) Monocytes % (Manual) Eosinophils % (Manual) Basophils % (Manual) Nucleated RBC % Seg Neutrophils # Seg Neutrophils # Man Lymphocytes # (Manual) Monocytes # (Manual) Eosinophils # (Manual) Basophils # (Manual) PT INR Fibrinogen dRVVT Confirm Interp Factor V Activity POC ABG pH POC ABG pCO2 POC ABG pO2 ABG pO2 ABG HCO3 ABG Base Excess ABG Hemoglobin Oxyhemoglobin Sodium 146 H Potassium Chloride Carbon Dioxide BUN 51 H Creatinine Glucose 109 H POC Glucose 169 H 117 H Lactic Acid Calcium Phosphorus Magnesium Direct Bilirubin AST ALT Alkaline Phosphatase Lactate Dehydrogenase Troponin T C-Reactive Protein Total Protein Albumin Prealbumin Triglycerides Cholesterol LDL Cholesterol Direct HDL Cholesterol PTH Intact Urine pH Urine WBC (Auto) Urine Creatinine Urine Total Protein Fluid Total Protein Vancomycin Trough Rheumatoid Factor Complement C4 Miscellaneous Test Crossmatch 12/25/16 12/25/16 12/25/16 06:43 11:29 17:14 WBC RBC Hgb Hct MCV MCH MCHC RDW Plt Count Lymph % (Auto) Towns % (Auto) Lymph # Town[place] # Baso # Seg Neutrophils % Seg Neuts % (Manual) Lymphocytes % (Manual) Monocytes % (Manual) Eosinophils % (Manual) Basophils % (Manual) Nucleated RBC % Seg Neutrophils # Seg Neutrophils # Man Lymphocytes # (Manual) Monocytes # (Manual) Eosinophils # (Manual) Basophils # (Manual) PT INR Fibrinogen dRVVT Confirm Interp Factor V Activity POC ABG pH POC ABG pCO2 POC ABG pO2 ABG pO2 ABG HCO3 ABG Base Excess ABG Hemoglobin Oxyhemoglobin Sodium Potassium Chloride Carbon Dioxide BUN Creatinine Glucose POC Glucose 117 H 128 H 120 H Lactic Acid Calcium Phosphorus Magnesium Direct Bilirubin AST ALT Alkaline Phosphatase Lactate Dehydrogenase Troponin T C-Reactive Protein Total Protein Albumin Prealbumin Triglycerides Cholesterol LDL Cholesterol Direct HDL Cholesterol PTH Intact Urine pH Urine WBC (Auto) Urine Creatinine Urine Total Protein Fluid Total Protein Vancomycin Trough Rheumatoid Factor Complement C4 Miscellaneous Test Crossmatch 12/25/16 12/26/16 12/26/16 23:54 05:40 05:50 WBC 16.2 H RBC 2.32 L Hgb 6.2 L Hct 20.1 L MCV MCH 27 L MCHC RDW 18.6 H Plt Count Lymph % (Auto) Towns % (Auto) Lymph # [place]s # Baso # Seg Neutrophils % Seg Neuts % (Manual) Lymphocytes % (Manual) Monocytes % (Manual) Eosinophils % (Manual) Basophils % (Manual) Nucleated RBC % Seg Neutrophils # Seg Neutrophils # Man Lymphocytes # (Manual) Monocytes # (Manual) Eosinophils # (Manual) Basophils # (Manual) PT INR Fibrinogen dRVVT Confirm Interp Factor V Activity POC ABG pH POC ABG pCO2 POC ABG pO2 ABG pO2 ABG HCO3 ABG Base Excess ABG Hemoglobin Oxyhemoglobin Sodium Potassium Chloride Carbon Dioxide BUN Creatinine Glucose POC Glucose 126 H 132 H Lactic Acid Calcium Phosphorus Magnesium Direct Bilirubin AST ALT Alkaline Phosphatase Lactate Dehydrogenase Troponin T C-Reactive Protein Total Protein Albumin Prealbumin Triglycerides Cholesterol LDL Cholesterol Direct HDL Cholesterol PTH Intact Urine pH Urine WBC (Auto) Urine Creatinine Urine Total Protein Fluid Total Protein Vancomycin Trough Rheumatoid Factor Complement C4 Miscellaneous Test Crossmatch 12/26/16 12/26/16 12/26/16 05:50 12:17 12:33 WBC RBC Hgb Hct MCV MCH MCHC RDW Plt Count Lymph % (Auto) Towns % (Auto) Lymph # [place] # Baso # Seg Neutrophils % Seg Neuts % (Manual) Lymphocytes % (Manual) Monocytes % (Manual) Eosinophils % (Manual) Basophils % (Manual) Nucleated RBC % Seg Neutrophils # Seg Neutrophils # Man Lymphocytes # (Manual) Monocytes # (Manual) Eosinophils # (Manual) Basophils # (Manual) PT INR Fibrinogen dRVVT Confirm Interp Factor V Activity POC ABG pH POC ABG pCO2 POC ABG pO2 ABG pO2 ABG HCO3 ABG Base Excess ABG Hemoglobin Oxyhemoglobin Sodium Potassium Chloride Carbon Dioxide BUN 73 H Creatinine 1.3 H Glucose 113 H POC Glucose 117 H Lactic Acid Calcium Phosphorus Magnesium Direct Bilirubin AST ALT Alkaline Phosphatase Lactate Dehydrogenase Troponin T C-Reactive Protein Total Protein Albumin Prealbumin Triglycerides Cholesterol LDL Cholesterol Direct HDL Cholesterol PTH Intact Urine pH Urine WBC (Auto) Urine Creatinine Urine Total Protein Fluid Total Protein Vancomycin Trough Rheumatoid Factor Complement C4 Miscellaneous Test Crossmatch See Detail 12/26/16 12/26/16 12/27/16 20:00 23:21 05:00 WBC RBC Hgb 8.4 L Hct 26.3 L D MCV MCH MCHC RDW Plt Count Lymph % (Auto) Towns % (Auto) Lymph # [place] # Baso # Seg Neutrophils % Seg Neuts % (Manual) Lymphocytes % (Manual) Monocytes % (Manual) Eosinophils % (Manual) Basophils % (Manual) Nucleated RBC % Seg Neutrophils # Seg Neutrophils # Man Lymphocytes # (Manual) Monocytes # (Manual) Eosinophils # (Manual) Basophils # (Manual) PT INR Fibrinogen dRVVT Confirm Interp Factor V Activity POC ABG pH POC ABG pCO2 POC ABG pO2 ABG pO2 ABG HCO3 ABG Base Excess ABG Hemoglobin Oxyhemoglobin Sodium Potassium Chloride Carbon Dioxide BUN 85 H Creatinine 1.6 H Glucose 118 H POC Glucose 124 H Lactic Acid Calcium Phosphorus 4.80 H Magnesium Direct Bilirubin AST ALT Alkaline Phosphatase Lactate Dehydrogenase Troponin T C-Reactive Protein Total Protein Albumin Prealbumin Triglycerides Cholesterol LDL Cholesterol Direct HDL Cholesterol PTH Intact Urine pH Urine WBC (Auto) Urine Creatinine Urine Total Protein Fluid Total Protein Vancomycin Trough Rheumatoid Factor Complement C4 Miscellaneous Test Crossmatch 12/27/16 12/27/16 12/27/16 05:00 05:35 12:24 WBC RBC Hgb 7.6 L Hct 22.8 L MCV MCH MCHC RDW Plt Count Lymph % (Auto) Towns % (Auto) Lymph # [place] # Baso # Seg Neutrophils % Seg Neuts % (Manual) Lymphocytes % (Manual) Monocytes % (Manual) Eosinophils % (Manual) Basophils % (Manual) Nucleated RBC % Seg Neutrophils # Seg Neutrophils # Man Lymphocytes # (Manual) Monocytes # (Manual) Eosinophils # (Manual) Basophils # (Manual) PT INR Fibrinogen dRVVT Confirm Interp Factor V Activity POC ABG pH POC ABG pCO2 POC ABG pO2 ABG pO2 ABG HCO3 ABG Base Excess ABG Hemoglobin Oxyhemoglobin Sodium Potassium Chloride Carbon Dioxide BUN Creatinine Glucose POC Glucose 115 H 131 H Lactic Acid Calcium Phosphorus Magnesium Direct Bilirubin AST ALT Alkaline Phosphatase Lactate Dehydrogenase Troponin T C-Reactive Protein Total Protein Albumin Prealbumin Triglycerides Cholesterol LDL Cholesterol Direct HDL Cholesterol PTH Intact Urine pH Urine WBC (Auto) Urine Creatinine Urine Total Protein Fluid Total Protein Vancomycin Trough Rheumatoid Factor Complement C4 Miscellaneous Test Crossmatch 12/27/16 12/28/16 12/28/16 17:16 00:18 04:00 WBC RBC Hgb Hct MCV MCH MCHC RDW Plt Count Lymph % (Auto) Towns % (Auto) Lymph # [place] # Baso # Seg Neutrophils % Seg Neuts % (Manual) Lymphocytes % (Manual) Monocytes % (Manual) Eosinophils % (Manual) Basophils % (Manual) Nucleated RBC % Seg Neutrophils # Seg Neutrophils # Man Lymphocytes # (Manual) Monocytes # (Manual) Eosinophils # (Manual) Basophils # (Manual) PT INR Fibrinogen dRVVT Confirm Interp Factor V Activity POC ABG pH POC ABG pCO2 POC ABG pO2 ABG pO2 ABG HCO3 ABG Base Excess ABG Hemoglobin Oxyhemoglobin Sodium Potassium 3.5 L Chloride Carbon Dioxide BUN 57 H Creatinine Glucose 118 H POC Glucose 136 H 120 H Lactic Acid Calcium 8.3 L Phosphorus Magnesium Direct Bilirubin AST ALT Alkaline Phosphatase Lactate Dehydrogenase Troponin T C-Reactive Protein Total Protein Albumin Prealbumin Triglycerides Cholesterol LDL Cholesterol Direct HDL Cholesterol PTH Intact Urine pH Urine WBC (Auto) Urine Creatinine Urine Total Protein Fluid Total Protein Vancomycin Trough Rheumatoid Factor Complement C4 Miscellaneous Test Crossmatch 12/28/16 12/28/16 12/28/16 04:00 05:11 08:30 WBC 17.0 H RBC 2.58 L Hgb 7.1 L Hct 22.0 L MCV MCH MCHC RDW 17.6 H Plt Count Lymph % (Auto) 12.2 L Towns % (Auto) Lymph # [place] # 1.1 H Baso # Seg Neutrophils % 80.5 H Seg Neuts % (Manual) Lymphocytes % (Manual) Monocytes % (Manual) Eosinophils % (Manual) Basophils % (Manual) Nucleated RBC % Seg Neutrophils # 13.7 H Seg Neutrophils # Man Lymphocytes # (Manual) Monocytes # (Manual) Eosinophils # (Manual) Basophils # (Manual) PT 16.1 H INR 1.23 H Fibrinogen dRVVT Confirm Interp Factor V Activity POC ABG pH POC ABG pCO2 POC ABG pO2 ABG pO2 ABG HCO3 ABG Base Excess ABG Hemoglobin Oxyhemoglobin Sodium Potassium Chloride Carbon Dioxide BUN Creatinine Glucose POC Glucose 122 H Lactic Acid Calcium Phosphorus Magnesium Direct Bilirubin AST ALT Alkaline Phosphatase Lactate Dehydrogenase Troponin T C-Reactive Protein Total Protein Albumin Prealbumin Triglycerides Cholesterol LDL Cholesterol Direct HDL Cholesterol PTH Intact Urine pH Urine WBC (Auto) Urine Creatinine Urine Total Protein Fluid Total Protein Vancomycin Trough Rheumatoid Factor Complement C4 Miscellaneous Test Crossmatch 12/28/16 12/28/16 12/28/16 12:27 16:32 23:46 WBC RBC Hgb Hct MCV MCH MCHC RDW Plt Count Lymph % (Auto) Towns % (Auto) Lymph # [place] # Baso # Seg Neutrophils % Seg Neuts % (Manual) Lymphocytes % (Manual) Monocytes % (Manual) Eosinophils % (Manual) Basophils % (Manual) Nucleated RBC % Seg Neutrophils # Seg Neutrophils # Man Lymphocytes # (Manual) Monocytes # (Manual) Eosinophils # (Manual) Basophils # (Manual) PT INR Fibrinogen dRVVT Confirm Interp Factor V Activity POC ABG pH POC ABG pCO2 POC ABG pO2 ABG pO2 ABG HCO3 ABG Base Excess ABG Hemoglobin Oxyhemoglobin Sodium Potassium Chloride Carbon Dioxide BUN Creatinine Glucose POC Glucose 127 H 117 H 108 H Lactic Acid Calcium Phosphorus Magnesium Direct Bilirubin AST ALT Alkaline Phosphatase Lactate Dehydrogenase Troponin T C-Reactive Protein Total Protein Albumin Prealbumin Triglycerides Cholesterol LDL Cholesterol Direct HDL Cholesterol PTH Intact Urine pH Urine WBC (Auto) Urine Creatinine Urine Total Protein Fluid Total Protein Vancomycin Trough Rheumatoid Factor Complement C4 Miscellaneous Test Crossmatch 12/29/16 12/29/16 12/29/16 05:15 05:15 05:32 WBC RBC Hgb Hct MCV MCH MCHC RDW Plt Count Lymph % (Auto) Towns % (Auto) Lymph # [place] # Baso # Seg Neutrophils % Seg Neuts % (Manual) Lymphocytes % (Manual) Monocytes % (Manual) Eosinophils % (Manual) Basophils % (Manual) Nucleated RBC % Seg Neutrophils # Seg Neutrophils # Man Lymphocytes # (Manual) Monocytes # (Manual) Eosinophils # (Manual) Basophils # (Manual) PT INR Fibrinogen dRVVT Confirm Interp Factor V Activity POC ABG pH POC ABG pCO2 POC ABG pO2 ABG pO2 ABG HCO3 ABG Base Excess ABG Hemoglobin Oxyhemoglobin Sodium Potassium Chloride Carbon Dioxide BUN 74 H Creatinine 1.6 H Glucose 111 H POC Glucose 123 H Lactic Acid Calcium Phosphorus Magnesium Direct Bilirubin AST ALT Alkaline Phosphatase Lactate Dehydrogenase Troponin T C-Reactive Protein Total Protein Albumin Prealbumin 0.110 L Triglycerides Cholesterol LDL Cholesterol Direct HDL Cholesterol PTH Intact Urine pH Urine WBC (Auto) Urine Creatinine Urine Total Protein Fluid Total Protein Vancomycin Trough Rheumatoid Factor Complement C4 Miscellaneous Test Crossmatch 12/29/16 12/29/16 12/29/16 11:43 13:45 14:00 WBC 13.8 H RBC 2.26 L Hgb 6.3 L Hct 20.4 L MCV MCH MCHC RDW 18.3 H Plt Count Lymph % (Auto) Towns % (Auto) Lymph # [place] # 0.9 H Baso # Seg Neutrophils % 78.6 H Seg Neuts % (Manual) Lymphocytes % (Manual) Monocytes % (Manual) Eosinophils % (Manual) Basophils % (Manual) Nucleated RBC % Seg Neutrophils # 10.8 H Seg Neutrophils # Man Lymphocytes # (Manual) Monocytes # (Manual) Eosinophils # (Manual) Basophils # (Manual) PT INR Fibrinogen dRVVT Confirm Interp Factor V Activity POC ABG pH POC ABG pCO2 POC ABG pO2 ABG pO2 ABG HCO3 ABG Base Excess ABG Hemoglobin Oxyhemoglobin Sodium Potassium Chloride Carbon Dioxide BUN Creatinine Glucose POC Glucose 133 H Lactic Acid Calcium Phosphorus Magnesium Direct Bilirubin AST ALT Alkaline Phosphatase Lactate Dehydrogenase Troponin T C-Reactive Protein Total Protein Albumin Prealbumin Triglycerides Cholesterol LDL Cholesterol Direct HDL Cholesterol PTH Intact Urine pH Urine WBC (Auto) Urine Creatinine Urine Total Protein Fluid Total Protein Vancomycin Trough Rheumatoid Factor Complement C4 Miscellaneous Test Crossmatch See Detail 12/29/16 12/29/16 12/29/16 17:03 23:15 23:22 WBC RBC Hgb 7.3 L Hct 22.3 L MCV MCH MCHC RDW Plt Count Lymph % (Auto) [place] % (Auto) Lymph # [place] # Baso # Seg Neutrophils % Seg Neuts % (Manual) Lymphocytes % (Manual) Monocytes % (Manual) Eosinophils % (Manual) Basophils % (Manual) Nucleated RBC % Seg Neutrophils # Seg Neutrophils # Man Lymphocytes # (Manual) Monocytes # (Manual) Eosinophils # (Manual) Basophils # (Manual) PT INR Fibrinogen dRVVT Confirm Interp Factor V Activity POC ABG pH POC ABG pCO2 POC ABG pO2 ABG pO2 ABG HCO3 ABG Base Excess ABG Hemoglobin Oxyhemoglobin Sodium Potassium Chloride Carbon Dioxide BUN Creatinine Glucose POC Glucose 139 H 120 H Lactic Acid Calcium Phosphorus Magnesium Direct Bilirubin AST ALT Alkaline Phosphatase Lactate Dehydrogenase Troponin T C-Reactive Protein Total Protein Albumin Prealbumin Triglycerides Cholesterol LDL Cholesterol Direct HDL Cholesterol PTH Intact Urine pH Urine WBC (Auto) Urine Creatinine Urine Total Protein Fluid Total Protein Vancomycin Trough Rheumatoid Factor Complement C4 Miscellaneous Test Crossmatch 12/30/16 12/30/16 12/30/16 04:20 04:20 05:43 WBC 15.6 H RBC 2.81 L Hgb 8.0 L Hct 24.0 L MCV MCH MCHC RDW 16.9 H Plt Count Lymph % (Auto) Towns % (Auto) Lymph # [place] # 1.0 H Baso # Seg Neutrophils % 76.2 H Seg Neuts % (Manual) Lymphocytes % (Manual) Monocytes % (Manual) Eosinophils % (Manual) Basophils % (Manual) Nucleated RBC % Seg Neutrophils # 11.9 H Seg Neutrophils # Man Lymphocytes # (Manual) Monocytes # (Manual) Eosinophils # (Manual) Basophils # (Manual) PT INR Fibrinogen dRVVT Confirm Interp Factor V Activity POC ABG pH POC ABG pCO2 POC ABG pO2 ABG pO2 ABG HCO3 ABG Base Excess ABG Hemoglobin Oxyhemoglobin Sodium Potassium Chloride Carbon Dioxide BUN 87 H Creatinine 1.8 H Glucose 119 H POC Glucose 115 H Lactic Acid Calcium Phosphorus Magnesium Direct Bilirubin AST ALT Alkaline Phosphatase Lactate Dehydrogenase Troponin T C-Reactive Protein Total Protein Albumin Prealbumin Triglycerides Cholesterol LDL Cholesterol Direct HDL Cholesterol PTH Intact Urine pH Urine WBC (Auto) Urine Creatinine Urine Total Protein Fluid Total Protein Vancomycin Trough Rheumatoid Factor Complement C4 Miscellaneous Test Crossmatch 12/30/16 12/30/16 12/31/16 17:27 23:21 04:00 WBC RBC Hgb Hct MCV MCH MCHC RDW Plt Count Lymph % (Auto) [place] % (Auto) Lymph # [place] # Baso # Seg Neutrophils % Seg Neuts % (Manual) Lymphocytes % (Manual) Monocytes % (Manual) Eosinophils % (Manual) Basophils % (Manual) Nucleated RBC % Seg Neutrophils # Seg Neutrophils # Man Lymphocytes # (Manual) Monocytes # (Manual) Eosinophils # (Manual) Basophils # (Manual) PT INR Fibrinogen dRVVT Confirm Interp Factor V Activity POC ABG pH POC ABG pCO2 POC ABG pO2 ABG pO2 ABG HCO3 ABG Base Excess ABG Hemoglobin Oxyhemoglobin Sodium Potassium Chloride Carbon Dioxide BUN 59 H Creatinine Glucose 298 H POC Glucose 144 H 125 H Lactic Acid Calcium Phosphorus Magnesium Direct Bilirubin AST ALT Alkaline Phosphatase Lactate Dehydrogenase Troponin T C-Reactive Protein Total Protein Albumin Prealbumin Triglycerides Cholesterol LDL Cholesterol Direct HDL Cholesterol PTH Intact Urine pH Urine WBC (Auto) Urine Creatinine Urine Total Protein Fluid Total Protein Vancomycin Trough Rheumatoid Factor Complement C4 Miscellaneous Test Crossmatch 12/31/16 12/31/16 12/31/16 05:11 12:18 18:17 WBC RBC Hgb Hct MCV MCH MCHC RDW Plt Count Lymph % (Auto) Towns % (Auto) Lymph # [place] # Baso # Seg Neutrophils % Seg Neuts % (Manual) Lymphocytes % (Manual) Monocytes % (Manual) Eosinophils % (Manual) Basophils % (Manual) Nucleated RBC % Seg Neutrophils # Seg Neutrophils # Man Lymphocytes # (Manual) Monocytes # (Manual) Eosinophils # (Manual) Basophils # (Manual) PT INR Fibrinogen dRVVT Confirm Interp Factor V Activity POC ABG pH POC ABG pCO2 POC ABG pO2 ABG pO2 ABG HCO3 ABG Base Excess ABG Hemoglobin Oxyhemoglobin Sodium Potassium Chloride Carbon Dioxide BUN Creatinine Glucose POC Glucose 167 H 125 H 133 H Lactic Acid Calcium Phosphorus Magnesium Direct Bilirubin AST ALT Alkaline Phosphatase Lactate Dehydrogenase Troponin T C-Reactive Protein Total Protein Albumin Prealbumin Triglycerides Cholesterol LDL Cholesterol Direct HDL Cholesterol PTH Intact Urine pH Urine WBC (Auto) Urine Creatinine Urine Total Protein Fluid Total Protein Vancomycin Trough Rheumatoid Factor Complement C4 Miscellaneous Test Crossmatch 12/31/16 01/01/17 01/01/17 23:55 05:00 05:12 WBC RBC Hgb Hct MCV MCH MCHC RDW Plt Count Lymph % (Auto) Towns % (Auto) Lymph # [place] # Baso # Seg Neutrophils % Seg Neuts % (Manual) Lymphocytes % (Manual) Monocytes % (Manual) Eosinophils % (Manual) Basophils % (Manual) Nucleated RBC % Seg Neutrophils # Seg Neutrophils # Man Lymphocytes # (Manual) Monocytes # (Manual) Eosinophils # (Manual) Basophils # (Manual) PT INR Fibrinogen dRVVT Confirm Interp Factor V Activity POC ABG pH POC ABG pCO2 POC ABG pO2 ABG pO2 ABG HCO3 ABG Base Excess ABG Hemoglobin Oxyhemoglobin Sodium Potassium Chloride Carbon Dioxide BUN 76 H Creatinine 1.5 H Glucose 109 H POC Glucose 129 H 129 H Lactic Acid Calcium Phosphorus Magnesium Direct Bilirubin AST ALT Alkaline Phosphatase 536 H Lactate Dehydrogenase Troponin T C-Reactive Protein Total Protein Albumin 1.5 L Prealbumin Triglycerides Cholesterol LDL Cholesterol Direct HDL Cholesterol PTH Intact Urine pH Urine WBC (Auto) Urine Creatinine Urine Total Protein Fluid Total Protein Vancomycin Trough Rheumatoid Factor Complement C4 Miscellaneous Test Crossmatch 01/01/17 01/01/17 01/01/17 12:25 17:01 23:32 WBC RBC Hgb Hct MCV MCH MCHC RDW Plt Count Lymph % (Auto) Towns % (Auto) Lymph # [place] # Baso # Seg Neutrophils % Seg Neuts % (Manual) Lymphocytes % (Manual) Monocytes % (Manual) Eosinophils % (Manual) Basophils % (Manual) Nucleated RBC % Seg Neutrophils # Seg Neutrophils # Man Lymphocytes # (Manual) Monocytes # (Manual) Eosinophils # (Manual) Basophils # (Manual) PT INR Fibrinogen dRVVT Confirm Interp Factor V Activity POC ABG pH POC ABG pCO2 POC ABG pO2 ABG pO2 ABG HCO3 ABG Base Excess ABG Hemoglobin Oxyhemoglobin Sodium Potassium Chloride Carbon Dioxide BUN Creatinine Glucose POC Glucose 140 H 142 H 112 H Lactic Acid Calcium Phosphorus Magnesium Direct Bilirubin AST ALT Alkaline Phosphatase Lactate Dehydrogenase Troponin T C-Reactive Protein Total Protein Albumin Prealbumin Triglycerides Cholesterol LDL Cholesterol Direct HDL Cholesterol PTH Intact Urine pH Urine WBC (Auto) Urine Creatinine Urine Total Protein Fluid Total Protein Vancomycin Trough Rheumatoid Factor Complement C4 Miscellaneous Test Crossmatch 01/02/17 01/02/17 01/02/17 04:56 06:00 11:37 WBC RBC Hgb Hct MCV MCH MCHC RDW Plt Count Lymph % (Auto) Towns % (Auto) Lymph # [place] # Baso # Seg Neutrophils % Seg Neuts % (Manual) Lymphocytes % (Manual) Monocytes % (Manual) Eosinophils % (Manual) Basophils % (Manual) Nucleated RBC % Seg Neutrophils # Seg Neutrophils # Man Lymphocytes # (Manual) Monocytes # (Manual) Eosinophils # (Manual) Basophils # (Manual) PT INR Fibrinogen dRVVT Confirm Interp Factor V Activity POC ABG pH POC ABG pCO2 POC ABG pO2 ABG pO2 ABG HCO3 ABG Base Excess ABG Hemoglobin Oxyhemoglobin Sodium Potassium Chloride Carbon Dioxide BUN 88 H Creatinine 1.7 H Glucose 113 H POC Glucose 136 H 200 H Lactic Acid Calcium Phosphorus Magnesium Direct Bilirubin AST ALT Alkaline Phosphatase Lactate Dehydrogenase Troponin T C-Reactive Protein Total Protein Albumin Prealbumin Triglycerides Cholesterol LDL Cholesterol Direct HDL Cholesterol PTH Intact Urine pH Urine WBC (Auto) Urine Creatinine Urine Total Protein Fluid Total Protein Vancomycin Trough Rheumatoid Factor Complement C4 Miscellaneous Test Crossmatch 01/02/17 01/02/17 01/03/17 17:42 22:52 04:54 WBC RBC Hgb Hct MCV MCH MCHC RDW Plt Count Lymph % (Auto) Towns % (Auto) Lymph # Town[place] # Baso # Seg Neutrophils % Seg Neuts % (Manual) Lymphocytes % (Manual) Monocytes % (Manual) Eosinophils % (Manual) Basophils % (Manual) Nucleated RBC % Seg Neutrophils # Seg Neutrophils # Man Lymphocytes # (Manual) Monocytes # (Manual) Eosinophils # (Manual) Basophils # (Manual) PT INR Fibrinogen dRVVT Confirm Interp Factor V Activity POC ABG pH POC ABG pCO2 POC ABG pO2 ABG pO2 ABG HCO3 ABG Base Excess ABG Hemoglobin Oxyhemoglobin Sodium Potassium Chloride Carbon Dioxide BUN Creatinine Glucose POC Glucose 112 H 133 H 111 H Lactic Acid Calcium Phosphorus Magnesium Direct Bilirubin AST ALT Alkaline Phosphatase Lactate Dehydrogenase Troponin T C-Reactive Protein Total Protein Albumin Prealbumin Triglycerides Cholesterol LDL Cholesterol Direct HDL Cholesterol PTH Intact Urine pH Urine WBC (Auto) Urine Creatinine Urine Total Protein Fluid Total Protein Vancomycin Trough Rheumatoid Factor Complement C4 Miscellaneous Test Crossmatch 01/03/17 01/03/17 01/03/17 05:00 05:00 14:02 WBC 11.2 H RBC 2.56 L Hgb 7.2 L Hct 22.3 L MCV MCH MCHC RDW 17.3 H Plt Count Lymph % (Auto) Towns % (Auto) 10.0 H Lymph # Towns # 1.1 H Baso # Seg Neutrophils % 70.5 H Seg Neuts % (Manual) Lymphocytes % (Manual) Monocytes % (Manual) Eosinophils % (Manual) Basophils % (Manual) Nucleated RBC % Seg Neutrophils # 7.9 H Seg Neutrophils # Man Lymphocytes # (Manual) Monocytes # (Manual) Eosinophils # (Manual) Basophils # (Manual) PT INR Fibrinogen dRVVT Confirm Interp Factor V Activity POC ABG pH POC ABG pCO2 POC ABG pO2 ABG pO2 ABG HCO3 ABG Base Excess ABG Hemoglobin Oxyhemoglobin Sodium Potassium Chloride Carbon Dioxide BUN 60 H Creatinine 1.3 H Glucose 110 H POC Glucose 119 H Lactic Acid Calcium Phosphorus Magnesium Direct Bilirubin AST ALT Alkaline Phosphatase Lactate Dehydrogenase Troponin T C-Reactive Protein Total Protein Albumin Prealbumin Triglycerides Cholesterol LDL Cholesterol Direct HDL Cholesterol PTH Intact Urine pH Urine WBC (Auto) Urine Creatinine Urine Total Protein Fluid Total Protein Vancomycin Trough Rheumatoid Factor Complement C4 Miscellaneous Test Crossmatch 01/03/17 01/03/17 01/04/17 18:13 23:40 05:57 WBC RBC Hgb Hct MCV MCH MCHC RDW Plt Count Lymph % (Auto) Towns % (Auto) Lymph # [place] # Baso # Seg Neutrophils % Seg Neuts % (Manual) Lymphocytes % (Manual) Monocytes % (Manual) Eosinophils % (Manual) Basophils % (Manual) Nucleated RBC % Seg Neutrophils # Seg Neutrophils # Man Lymphocytes # (Manual) Monocytes # (Manual) Eosinophils # (Manual) Basophils # (Manual) PT INR Fibrinogen dRVVT Confirm Interp Factor V Activity POC ABG pH POC ABG pCO2 POC ABG pO2 ABG pO2 ABG HCO3 ABG Base Excess ABG Hemoglobin Oxyhemoglobin Sodium Potassium Chloride Carbon Dioxide BUN Creatinine Glucose POC Glucose 107 H 129 H 111 H Lactic Acid Calcium Phosphorus Magnesium Direct Bilirubin AST ALT Alkaline Phosphatase Lactate Dehydrogenase Troponin T C-Reactive Protein Total Protein Albumin Prealbumin Triglycerides Cholesterol LDL Cholesterol Direct HDL Cholesterol PTH Intact Urine pH Urine WBC (Auto) Urine Creatinine Urine Total Protein Fluid Total Protein Vancomycin Trough Rheumatoid Factor Complement C4 Miscellaneous Test Crossmatch 01/04/17 01/04/17 01/04/17 12:46 15:27 17:11 WBC RBC Hgb Hct MCV MCH MCHC RDW Plt Count Lymph % (Auto) Towns % (Auto) Lymph # Towns # Baso # Seg Neutrophils % Seg Neuts % (Manual) Lymphocytes % (Manual) Monocytes % (Manual) Eosinophils % (Manual) Basophils % (Manual) Nucleated RBC % Seg Neutrophils # Seg Neutrophils # Man Lymphocytes # (Manual) Monocytes # (Manual) Eosinophils # (Manual) Basophils # (Manual) PT INR Fibrinogen dRVVT Confirm Interp Factor V Activity POC ABG pH POC ABG pCO2 POC ABG pO2 ABG pO2 ABG HCO3 ABG Base Excess ABG Hemoglobin Oxyhemoglobin Sodium Potassium Chloride Carbon Dioxide BUN 43 H Creatinine Glucose 124 H POC Glucose 159 H 125 H Lactic Acid Calcium 8.0 L Phosphorus 2.10 L Magnesium Direct Bilirubin AST ALT Alkaline Phosphatase Lactate Dehydrogenase Troponin T C-Reactive Protein Total Protein Albumin Prealbumin Triglycerides Cholesterol LDL Cholesterol Direct HDL Cholesterol PTH Intact Urine pH Urine WBC (Auto) Urine Creatinine Urine Total Protein Fluid Total Protein Vancomycin Trough Rheumatoid Factor Complement C4 Miscellaneous Test Crossmatch 01/04/17 01/05/17 01/05/17 23:31 04:00 05:46 WBC RBC Hgb Hct MCV MCH MCHC RDW Plt Count Lymph % (Auto) Towns % (Auto) Lymph # Towns # Baso # Seg Neutrophils % Seg Neuts % (Manual) Lymphocytes % (Manual) Monocytes % (Manual) Eosinophils % (Manual) Basophils % (Manual) Nucleated RBC % Seg Neutrophils # Seg Neutrophils # Man Lymphocytes # (Manual) Monocytes # (Manual) Eosinophils # (Manual) Basophils # (Manual) PT INR Fibrinogen dRVVT Confirm Interp Factor V Activity POC ABG pH POC ABG pCO2 POC ABG pO2 ABG pO2 ABG HCO3 ABG Base Excess ABG Hemoglobin Oxyhemoglobin Sodium Potassium Chloride Carbon Dioxide BUN 52 H Creatinine 1.3 H Glucose 113 H POC Glucose 123 H 118 H Lactic Acid Calcium Phosphorus 2.40 L Magnesium Direct Bilirubin AST ALT Alkaline Phosphatase Lactate Dehydrogenase Troponin T C-Reactive Protein Total Protein Albumin Prealbumin Triglycerides Cholesterol LDL Cholesterol Direct HDL Cholesterol PTH Intact Urine pH Urine WBC (Auto) Urine Creatinine Urine Total Protein Fluid Total Protein Vancomycin Trough Rheumatoid Factor Complement C4 Miscellaneous Test Crossmatch 01/05/17 01/05/17 01/05/17 11:41 17:48 23:27 WBC RBC Hgb Hct MCV MCH MCHC RDW Plt Count Lymph % (Auto) Towns % (Auto) Lymph # Town[place] # Baso # Seg Neutrophils % Seg Neuts % (Manual) Lymphocytes % (Manual) Monocytes % (Manual) Eosinophils % (Manual) Basophils % (Manual) Nucleated RBC % Seg Neutrophils # Seg Neutrophils # Man Lymphocytes # (Manual) Monocytes # (Manual) Eosinophils # (Manual) Basophils # (Manual) PT INR Fibrinogen dRVVT Confirm Interp Factor V Activity POC ABG pH POC ABG pCO2 POC ABG pO2 ABG pO2 ABG HCO3 ABG Base Excess ABG Hemoglobin Oxyhemoglobin Sodium Potassium Chloride Carbon Dioxide BUN Creatinine Glucose POC Glucose 163 H 142 H 155 H Lactic Acid Calcium Phosphorus Magnesium Direct Bilirubin AST ALT Alkaline Phosphatase Lactate Dehydrogenase Troponin T C-Reactive Protein Total Protein Albumin Prealbumin Triglycerides Cholesterol LDL Cholesterol Direct HDL Cholesterol PTH Intact Urine pH Urine WBC (Auto) Urine Creatinine Urine Total Protein Fluid Total Protein Vancomycin Trough Rheumatoid Factor Complement C4 Miscellaneous Test Crossmatch 01/06/17 01/06/17 01/06/17 05:20 07:35 11:18 WBC RBC Hgb Hct MCV MCH MCHC RDW Plt Count Lymph % (Auto) Towns % (Auto) Lymph # Town[place] # Baso # Seg Neutrophils % Seg Neuts % (Manual) Lymphocytes % (Manual) Monocytes % (Manual) Eosinophils % (Manual) Basophils % (Manual) Nucleated RBC % Seg Neutrophils # Seg Neutrophils # Man Lymphocytes # (Manual) Monocytes # (Manual) Eosinophils # (Manual) Basophils # (Manual) PT INR Fibrinogen dRVVT Confirm Interp Factor V Activity POC ABG pH POC ABG pCO2 POC ABG pO2 ABG pO2 ABG HCO3 ABG Base Excess ABG Hemoglobin Oxyhemoglobin Sodium Potassium Chloride Carbon Dioxide BUN 74 H Creatinine 1.6 H Glucose 135 H POC Glucose 108 H 149 H Lactic Acid Calcium Phosphorus Magnesium Direct Bilirubin AST ALT Alkaline Phosphatase Lactate Dehydrogenase Troponin T C-Reactive Protein Total Protein Albumin Prealbumin Triglycerides Cholesterol LDL Cholesterol Direct HDL Cholesterol PTH Intact Urine pH Urine WBC (Auto) Urine Creatinine Urine Total Protein Fluid Total Protein Vancomycin Trough Rheumatoid Factor Complement C4 Miscellaneous Test Crossmatch 01/06/17 01/07/17 01/07/17 17:17 00:23 05:31 WBC RBC Hgb Hct MCV MCH MCHC RDW Plt Count Lymph % (Auto) Towns % (Auto) Lymph # Towns # Baso # Seg Neutrophils % Seg Neuts % (Manual) Lymphocytes % (Manual) Monocytes % (Manual) Eosinophils % (Manual) Basophils % (Manual) Nucleated RBC % Seg Neutrophils # Seg Neutrophils # Man Lymphocytes # (Manual) Monocytes # (Manual) Eosinophils # (Manual) Basophils # (Manual) PT INR Fibrinogen dRVVT Confirm Interp Factor V Activity POC ABG pH POC ABG pCO2 POC ABG pO2 ABG pO2 ABG HCO3 ABG Base Excess ABG Hemoglobin Oxyhemoglobin Sodium Potassium Chloride Carbon Dioxide BUN Creatinine Glucose POC Glucose 146 H 165 H 153 H Lactic Acid Calcium Phosphorus Magnesium Direct Bilirubin AST ALT Alkaline Phosphatase Lactate Dehydrogenase Troponin T C-Reactive Protein Total Protein Albumin Prealbumin Triglycerides Cholesterol LDL Cholesterol Direct HDL Cholesterol PTH Intact Urine pH Urine WBC (Auto) Urine Creatinine Urine Total Protein Fluid Total Protein Vancomycin Trough Rheumatoid Factor Complement C4 Miscellaneous Test Crossmatch 01/07/17 01/07/17 01/07/17 06:00 11:39 17:11 WBC RBC Hgb Hct MCV MCH MCHC RDW Plt Count Lymph % (Auto) Towns % (Auto) Lymph # Town[place] # Baso # Seg Neutrophils % Seg Neuts % (Manual) Lymphocytes % (Manual) Monocytes % (Manual) Eosinophils % (Manual) Basophils % (Manual) Nucleated RBC % Seg Neutrophils # Seg Neutrophils # Man Lymphocytes # (Manual) Monocytes # (Manual) Eosinophils # (Manual) Basophils # (Manual) PT INR Fibrinogen dRVVT Confirm Interp Factor V Activity POC ABG pH POC ABG pCO2 POC ABG pO2 ABG pO2 ABG HCO3 ABG Base Excess ABG Hemoglobin Oxyhemoglobin Sodium Potassium Chloride Carbon Dioxide BUN 42 H Creatinine Glucose 175 H POC Glucose 163 H 163 H Lactic Acid Calcium Phosphorus 2.40 L D Magnesium Direct Bilirubin AST ALT Alkaline Phosphatase Lactate Dehydrogenase Troponin T C-Reactive Protein Total Protein Albumin Prealbumin Triglycerides Cholesterol LDL Cholesterol Direct HDL Cholesterol PTH Intact Urine pH Urine WBC (Auto) Urine Creatinine Urine Total Protein Fluid Total Protein Vancomycin Trough Rheumatoid Factor Complement C4 Miscellaneous Test Crossmatch 01/07/17 01/08/17 01/08/17 23:40 05:00 05:00 WBC 27.4 H RBC 2.27 L Hgb 6.1 L Hct 20.4 L MCV MCH 27 L MCHC RDW 17.8 H Plt Count Lymph % (Auto) Towns % (Auto) Lymph # [place] # Baso # Seg Neutrophils % Seg Neuts % (Manual) Lymphocytes % (Manual) Monocytes % (Manual) Eosinophils % (Manual) Basophils % (Manual) Nucleated RBC % Seg Neutrophils # Seg Neutrophils # Man Lymphocytes # (Manual) Monocytes # (Manual) Eosinophils # (Manual) Basophils # (Manual) PT INR Fibrinogen dRVVT Confirm Interp Factor V Activity POC ABG pH POC ABG pCO2 POC ABG pO2 ABG pO2 ABG HCO3 ABG Base Excess ABG Hemoglobin Oxyhemoglobin Sodium Potassium Chloride Carbon Dioxide 16 L D BUN 62 H Creatinine 1.6 H D Glucose 103 H POC Glucose 135 H Lactic Acid Calcium Phosphorus Magnesium Direct Bilirubin AST ALT Alkaline Phosphatase Lactate Dehydrogenase Troponin T C-Reactive Protein Total Protein Albumin Prealbumin Triglycerides Cholesterol LDL Cholesterol Direct HDL Cholesterol PTH Intact Urine pH Urine WBC (Auto) Urine Creatinine Urine Total Protein Fluid Total Protein Vancomycin Trough Rheumatoid Factor Complement C4 Miscellaneous Test Crossmatch 01/08/17 01/08/17 01/08/17 05:25 10:37 10:37 WBC RBC Hgb Hct MCV MCH MCHC RDW Plt Count Lymph % (Auto) Towns % (Auto) Lymph # [place] # Baso # Seg Neutrophils % Seg Neuts % (Manual) Lymphocytes % (Manual) Monocytes % (Manual) Eosinophils % (Manual) Basophils % (Manual) Nucleated RBC % Seg Neutrophils # Seg Neutrophils # Man Lymphocytes # (Manual) Monocytes # (Manual) Eosinophils # (Manual) Basophils # (Manual) PT INR Fibrinogen dRVVT Confirm Interp Factor V Activity POC ABG pH POC ABG pCO2 POC ABG pO2 ABG pO2 ABG HCO3 ABG Base Excess ABG Hemoglobin Oxyhemoglobin Sodium Potassium Chloride Carbon Dioxide BUN Creatinine Glucose POC Glucose 106 H Lactic Acid Calcium Phosphorus Magnesium Direct Bilirubin AST ALT Alkaline Phosphatase Lactate Dehydrogenase Troponin T C-Reactive Protein 24.40 H Total Protein Albumin Prealbumin Triglycerides Cholesterol LDL Cholesterol Direct HDL Cholesterol PTH Intact Urine pH Urine WBC (Auto) Urine Creatinine Urine Total Protein Fluid Total Protein Vancomycin Trough Rheumatoid Factor Complement C4 Miscellaneous Test Crossmatch See Detail 01/08/17 01/08/17 01/08/17 10:37 11:33 15:15 WBC RBC Hgb Hct MCV MCH MCHC RDW Plt Count Lymph % (Auto) Towns % (Auto) Lymph # [place] # Baso # Seg Neutrophils % Seg Neuts % (Manual) Lymphocytes % (Manual) Monocytes % (Manual) Eosinophils % (Manual) Basophils % (Manual) Nucleated RBC % Seg Neutrophils # Seg Neutrophils # Man Lymphocytes # (Manual) Monocytes # (Manual) Eosinophils # (Manual) Basophils # (Manual) PT INR Fibrinogen dRVVT Confirm Interp Factor V Activity POC ABG pH POC ABG pCO2 POC ABG pO2 ABG pO2 ABG HCO3 ABG Base Excess ABG Hemoglobin Oxyhemoglobin Sodium Potassium Chloride Carbon Dioxide BUN Creatinine Glucose POC Glucose 157 H Lactic Acid 9.70 H* 9.10 H* Calcium Phosphorus Magnesium Direct Bilirubin AST ALT Alkaline Phosphatase Lactate Dehydrogenase Troponin T C-Reactive Protein Total Protein Albumin Prealbumin Triglycerides Cholesterol LDL Cholesterol Direct HDL Cholesterol PTH Intact Urine pH Urine WBC (Auto) Urine Creatinine Urine Total Protein Fluid Total Protein Vancomycin Trough Rheumatoid Factor Complement C4 Miscellaneous Test Crossmatch 01/08/17 01/08/17 01/09/17 17:19 23:12 04:40 WBC RBC Hgb Hct MCV MCH MCHC RDW Plt Count Lymph % (Auto) Towns % (Auto) Lymph # [place] # Baso # Seg Neutrophils % Seg Neuts % (Manual) Lymphocytes % (Manual) Monocytes % (Manual) Eosinophils % (Manual) Basophils % (Manual) Nucleated RBC % Seg Neutrophils # Seg Neutrophils # Man Lymphocytes # (Manual) Monocytes # (Manual) Eosinophils # (Manual) Basophils # (Manual) PT INR Fibrinogen dRVVT Confirm Interp Factor V Activity POC ABG pH POC ABG pCO2 POC ABG pO2 ABG pO2 ABG HCO3 ABG Base Excess ABG Hemoglobin Oxyhemoglobin Sodium 147 H Potassium Chloride Carbon Dioxide BUN 82 H Creatinine 1.8 H Glucose 137 H POC Glucose 164 H 157 H Lactic Acid Calcium Phosphorus Magnesium Direct Bilirubin AST ALT Alkaline Phosphatase Lactate Dehydrogenase Troponin T C-Reactive Protein Total Protein Albumin Prealbumin Triglycerides Cholesterol LDL Cholesterol Direct HDL Cholesterol PTH Intact Urine pH Urine WBC (Auto) Urine Creatinine Urine Total Protein Fluid Total Protein Vancomycin Trough Rheumatoid Factor Complement C4 Miscellaneous Test Crossmatch 01/09/17 01/09/17 01/09/17 05:42 08:22 10:57 WBC RBC Hgb Hct MCV MCH MCHC RDW Plt Count Lymph % (Auto) [place] % (Auto) Lymph # [place] # Baso # Seg Neutrophils % Seg Neuts % (Manual) Lymphocytes % (Manual) Monocytes % (Manual) Eosinophils % (Manual) Basophils % (Manual) Nucleated RBC % Seg Neutrophils # Seg Neutrophils # Man Lymphocytes # (Manual) Monocytes # (Manual) Eosinophils # (Manual) Basophils # (Manual) PT INR Fibrinogen dRVVT Confirm Interp Factor V Activity POC ABG pH POC ABG pCO2 POC ABG pO2 ABG pO2 ABG HCO3 ABG Base Excess ABG Hemoglobin Oxyhemoglobin Sodium Potassium Chloride Carbon Dioxide BUN Creatinine Glucose POC Glucose 156 H 122 H Lactic Acid 2.30 H* Calcium Phosphorus Magnesium Direct Bilirubin AST ALT Alkaline Phosphatase Lactate Dehydrogenase Troponin T C-Reactive Protein Total Protein Albumin Prealbumin Triglycerides Cholesterol LDL Cholesterol Direct HDL Cholesterol PTH Intact Urine pH Urine WBC (Auto) Urine Creatinine Urine Total Protein Fluid Total Protein Vancomycin Trough Rheumatoid Factor Complement C4 Miscellaneous Test Crossmatch 01/09/17 01/09/17 01/09/17 13:30 17:14 18:45 WBC RBC Hgb Hct MCV MCH MCHC RDW Plt Count Lymph % (Auto) [place]s % (Auto) Lymph # [place] # Baso # Seg Neutrophils % Seg Neuts % (Manual) Lymphocytes % (Manual) Monocytes % (Manual) Eosinophils % (Manual) Basophils % (Manual) Nucleated RBC % Seg Neutrophils # Seg Neutrophils # Man Lymphocytes # (Manual) Monocytes # (Manual) Eosinophils # (Manual) Basophils # (Manual) PT INR Fibrinogen dRVVT Confirm Interp Factor V Activity POC ABG pH POC ABG pCO2 POC ABG pO2 ABG pO2 ABG HCO3 ABG Base Excess ABG Hemoglobin Oxyhemoglobin Sodium Potassium Chloride Carbon Dioxide BUN Creatinine Glucose POC Glucose 127 H Lactic Acid Calcium Phosphorus Magnesium Direct Bilirubin AST ALT Alkaline Phosphatase Lactate Dehydrogenase Troponin T C-Reactive Protein 24.70 H Total Protein Albumin Prealbumin Triglycerides Cholesterol LDL Cholesterol Direct HDL Cholesterol PTH Intact Urine pH Urine WBC (Auto) Urine Creatinine Urine Total Protein Fluid Total Protein Vancomycin Trough Rheumatoid Factor Complement C4 Miscellaneous Test Flexitest 1 H Crossmatch 01/10/17 01/10/17 01/10/17 01:21 04:00 04:00 WBC 18.1 H RBC 3.22 L Hgb 8.8 L Hct 27.0 L D MCV MCH 27 L MCHC RDW 17.0 H Plt Count Lymph % (Auto) [place]s % (Auto) Lymph # [place] # Baso # Seg Neutrophils % Seg Neuts % (Manual) Lymphocytes % (Manual) Monocytes % (Manual) Eosinophils % (Manual) Basophils % (Manual) Nucleated RBC % Seg Neutrophils # Seg Neutrophils # Man Lymphocytes # (Manual) Monocytes # (Manual) Eosinophils # (Manual) Basophils # (Manual) PT INR Fibrinogen dRVVT Confirm Interp Factor V Activity POC ABG pH POC ABG pCO2 POC ABG pO2 ABG pO2 ABG HCO3 ABG Base Excess ABG Hemoglobin Oxyhemoglobin Sodium Potassium Chloride Carbon Dioxide BUN 59 H Creatinine 1.3 H Glucose 122 H POC Glucose 160 H Lactic Acid Calcium Phosphorus Magnesium Direct Bilirubin AST ALT Alkaline Phosphatase Lactate Dehydrogenase Troponin T C-Reactive Protein Total Protein Albumin Prealbumin Triglycerides Cholesterol LDL Cholesterol Direct HDL Cholesterol PTH Intact Urine pH Urine WBC (Auto) Urine Creatinine Urine Total Protein Fluid Total Protein Vancomycin Trough Rheumatoid Factor Complement C4 Miscellaneous Test Crossmatch 01/10/17 01/10/17 01/10/17 05:36 12:14 17:55 WBC RBC Hgb Hct MCV MCH MCHC RDW Plt Count Lymph % (Auto) [place]s % (Auto) Lymph # [place] # Baso # Seg Neutrophils % Seg Neuts % (Manual) Lymphocytes % (Manual) Monocytes % (Manual) Eosinophils % (Manual) Basophils % (Manual) Nucleated RBC % Seg Neutrophils # Seg Neutrophils # Man Lymphocytes # (Manual) Monocytes # (Manual) Eosinophils # (Manual) Basophils # (Manual) PT INR Fibrinogen dRVVT Confirm Interp Factor V Activity POC ABG pH POC ABG pCO2 POC ABG pO2 ABG pO2 ABG HCO3 ABG Base Excess ABG Hemoglobin Oxyhemoglobin Sodium Potassium Chloride Carbon Dioxide BUN Creatinine Glucose POC Glucose 163 H 120 H 144 H Lactic Acid Calcium Phosphorus Magnesium Direct Bilirubin AST ALT Alkaline Phosphatase Lactate Dehydrogenase Troponin T C-Reactive Protein Total Protein Albumin Prealbumin Triglycerides Cholesterol LDL Cholesterol Direct HDL Cholesterol PTH Intact Urine pH Urine WBC (Auto) Urine Creatinine Urine Total Protein Fluid Total Protein Vancomycin Trough Rheumatoid Factor Complement C4 Miscellaneous Test Crossmatch 01/11/17 01/11/17 01/11/17 00:09 04:00 04:00 WBC 15.8 H RBC 3.04 L Hgb 8.2 L Hct 25.5 L MCV MCH 27 L MCHC RDW 17.3 H Plt Count Lymph % (Auto) [place]s % (Auto) Lymph # [place] # Baso # Seg Neutrophils % Seg Neuts % (Manual) Lymphocytes % (Manual) Monocytes % (Manual) Eosinophils % (Manual) Basophils % (Manual) Nucleated RBC % Seg Neutrophils # Seg Neutrophils # Man Lymphocytes # (Manual) Monocytes # (Manual) Eosinophils # (Manual) Basophils # (Manual) PT INR Fibrinogen dRVVT Confirm Interp Factor V Activity POC ABG pH POC ABG pCO2 POC ABG pO2 ABG pO2 ABG HCO3 ABG Base Excess ABG Hemoglobin Oxyhemoglobin Sodium Potassium Chloride Carbon Dioxide BUN 78 H Creatinine 1.6 H Glucose 109 H POC Glucose 122 H Lactic Acid Calcium Phosphorus Magnesium Direct Bilirubin AST ALT Alkaline Phosphatase Lactate Dehydrogenase Troponin T C-Reactive Protein Total Protein Albumin Prealbumin Triglycerides Cholesterol LDL Cholesterol Direct HDL Cholesterol PTH Intact Urine pH Urine WBC (Auto) Urine Creatinine Urine Total Protein Fluid Total Protein Vancomycin Trough Rheumatoid Factor Complement C4 Miscellaneous Test Crossmatch 01/11/17 01/11/17 01/11/17 12:46 18:23 23:42 WBC RBC Hgb Hct MCV MCH MCHC RDW Plt Count Lymph % (Auto) [place] % (Auto) Lymph # [place] # Baso # Seg Neutrophils % Seg Neuts % (Manual) Lymphocytes % (Manual) Monocytes % (Manual) Eosinophils % (Manual) Basophils % (Manual) Nucleated RBC % Seg Neutrophils # Seg Neutrophils # Man Lymphocytes # (Manual) Monocytes # (Manual) Eosinophils # (Manual) Basophils # (Manual) PT INR Fibrinogen dRVVT Confirm Interp Factor V Activity POC ABG pH POC ABG pCO2 POC ABG pO2 ABG pO2 ABG HCO3 ABG Base Excess ABG Hemoglobin Oxyhemoglobin Sodium Potassium Chloride Carbon Dioxide BUN Creatinine Glucose POC Glucose 148 H 125 H 124 H Lactic Acid Calcium Phosphorus Magnesium Direct Bilirubin AST ALT Alkaline Phosphatase Lactate Dehydrogenase Troponin T C-Reactive Protein Total Protein Albumin Prealbumin Triglycerides Cholesterol LDL Cholesterol Direct HDL Cholesterol PTH Intact Urine pH Urine WBC (Auto) Urine Creatinine Urine Total Protein Fluid Total Protein Vancomycin Trough Rheumatoid Factor Complement C4 Miscellaneous Test Crossmatch 01/12/17 01/12/17 01/12/17 04:30 04:30 05:47 WBC 15.8 H RBC 3.31 L Hgb 8.9 L Hct 27.9 L MCV MCH 27 L MCHC RDW 17.4 H Plt Count Lymph % (Auto) [place]s % (Auto) Lymph # [place] # Baso # Seg Neutrophils % Seg Neuts % (Manual) Lymphocytes % (Manual) Monocytes % (Manual) Eosinophils % (Manual) Basophils % (Manual) Nucleated RBC % Seg Neutrophils # Seg Neutrophils # Man Lymphocytes # (Manual) Monocytes # (Manual) Eosinophils # (Manual) Basophils # (Manual) PT INR Fibrinogen dRVVT Confirm Interp Factor V Activity POC ABG pH POC ABG pCO2 POC ABG pO2 ABG pO2 ABG HCO3 ABG Base Excess ABG Hemoglobin Oxyhemoglobin Sodium Potassium Chloride Carbon Dioxide BUN 57 H Creatinine Glucose 121 H POC Glucose 110 H Lactic Acid Calcium Phosphorus 2.10 L Magnesium Direct Bilirubin AST ALT Alkaline Phosphatase Lactate Dehydrogenase Troponin T C-Reactive Protein Total Protein Albumin Prealbumin Triglycerides Cholesterol LDL Cholesterol Direct HDL Cholesterol PTH Intact Urine pH Urine WBC (Auto) Urine Creatinine Urine Total Protein Fluid Total Protein Vancomycin Trough Rheumatoid Factor Complement C4 Miscellaneous Test Crossmatch 01/12/17 01/12/17 01/12/17 11:35 17:45 23:14 WBC RBC Hgb Hct MCV MCH MCHC RDW Plt Count Lymph % (Auto) [place] % (Auto) Lymph # [place] # Baso # Seg Neutrophils % Seg Neuts % (Manual) Lymphocytes % (Manual) Monocytes % (Manual) Eosinophils % (Manual) Basophils % (Manual) Nucleated RBC % Seg Neutrophils # Seg Neutrophils # Man Lymphocytes # (Manual) Monocytes # (Manual) Eosinophils # (Manual) Basophils # (Manual) PT INR Fibrinogen dRVVT Confirm Interp Factor V Activity POC ABG pH POC ABG pCO2 POC ABG pO2 ABG pO2 ABG HCO3 ABG Base Excess ABG Hemoglobin Oxyhemoglobin Sodium Potassium Chloride Carbon Dioxide BUN Creatinine Glucose POC Glucose 146 H 117 H 123 H Lactic Acid Calcium Phosphorus Magnesium Direct Bilirubin AST ALT Alkaline Phosphatase Lactate Dehydrogenase Troponin T C-Reactive Protein Total Protein Albumin Prealbumin Triglycerides Cholesterol LDL Cholesterol Direct HDL Cholesterol PTH Intact Urine pH Urine WBC (Auto) Urine Creatinine Urine Total Protein Fluid Total Protein Vancomycin Trough Rheumatoid Factor Complement C4 Miscellaneous Test Crossmatch 01/13/17 01/13/17 01/13/17 05:32 06:00 12:10 WBC RBC Hgb Hct MCV MCH MCHC RDW Plt Count Lymph % (Auto) [place]s % (Auto) Lymph # [place] # Baso # Seg Neutrophils % Seg Neuts % (Manual) Lymphocytes % (Manual) Monocytes % (Manual) Eosinophils % (Manual) Basophils % (Manual) Nucleated RBC % Seg Neutrophils # Seg Neutrophils # Man Lymphocytes # (Manual) Monocytes # (Manual) Eosinophils # (Manual) Basophils # (Manual) PT INR Fibrinogen dRVVT Confirm Interp Factor V Activity POC ABG pH POC ABG pCO2 POC ABG pO2 ABG pO2 ABG HCO3 ABG Base Excess ABG Hemoglobin Oxyhemoglobin Sodium Potassium Chloride Carbon Dioxide BUN 80 H Creatinine 1.4 H Glucose 106 H POC Glucose 106 H Lactic Acid Calcium Phosphorus Magnesium Direct Bilirubin AST ALT Alkaline Phosphatase Lactate Dehydrogenase Troponin T C-Reactive Protein Total Protein Albumin Prealbumin Triglycerides Cholesterol LDL Cholesterol Direct HDL Cholesterol PTH Intact Urine pH Urine WBC (Auto) Urine Creatinine Urine Total Protein Fluid Total Protein 3.0 L Vancomycin Trough Rheumatoid Factor Complement C4 Miscellaneous Test Crossmatch 01/13/17 01/13/17 01/13/17 12:17 15:50 17:30 WBC RBC Hgb Hct MCV MCH MCHC RDW Plt Count Lymph % (Auto) [place] % (Auto) Lymph # [place] # Baso # Seg Neutrophils % Seg Neuts % (Manual) Lymphocytes % (Manual) Monocytes % (Manual) Eosinophils % (Manual) Basophils % (Manual) Nucleated RBC % Seg Neutrophils # Seg Neutrophils # Man Lymphocytes # (Manual) Monocytes # (Manual) Eosinophils # (Manual) Basophils # (Manual) PT 15.4 H INR 1.16 H Fibrinogen dRVVT Confirm Interp Factor V Activity POC ABG pH POC ABG pCO2 POC ABG pO2 ABG pO2 ABG HCO3 ABG Base Excess ABG Hemoglobin Oxyhemoglobin Sodium Potassium Chloride Carbon Dioxide BUN Creatinine Glucose POC Glucose 168 H 110 H Lactic Acid Calcium Phosphorus Magnesium Direct Bilirubin AST ALT Alkaline Phosphatase Lactate Dehydrogenase Troponin T C-Reactive Protein Total Protein Albumin Prealbumin Triglycerides Cholesterol LDL Cholesterol Direct HDL Cholesterol PTH Intact Urine pH Urine WBC (Auto) Urine Creatinine Urine Total Protein Fluid Total Protein Vancomycin Trough Rheumatoid Factor Complement C4 Miscellaneous Test Crossmatch 01/13/17 01/14/17 01/14/17 23:42 05:24 05:30 WBC RBC Hgb Hct MCV MCH MCHC RDW Plt Count Lymph % (Auto) Towns % (Auto) Lymph # [place] # Baso # Seg Neutrophils % Seg Neuts % (Manual) Lymphocytes % (Manual) Monocytes % (Manual) Eosinophils % (Manual) Basophils % (Manual) Nucleated RBC % Seg Neutrophils # Seg Neutrophils # Man Lymphocytes # (Manual) Monocytes # (Manual) Eosinophils # (Manual) Basophils # (Manual) PT INR Fibrinogen dRVVT Confirm Interp Factor V Activity POC ABG pH POC ABG pCO2 POC ABG pO2 ABG pO2 ABG HCO3 ABG Base Excess ABG Hemoglobin Oxyhemoglobin Sodium Potassium Chloride Carbon Dioxide BUN 58 H Creatinine Glucose 114 H POC Glucose 155 H 121 H Lactic Acid Calcium Phosphorus Magnesium Direct Bilirubin AST ALT Alkaline Phosphatase Lactate Dehydrogenase Troponin T C-Reactive Protein Total Protein Albumin Prealbumin Triglycerides Cholesterol LDL Cholesterol Direct HDL Cholesterol PTH Intact Urine pH Urine WBC (Auto) Urine Creatinine Urine Total Protein Fluid Total Protein Vancomycin Trough Rheumatoid Factor Complement C4 Miscellaneous Test Crossmatch 01/14/17 01/14/17 01/15/17 12:48 17:36 00:15 WBC RBC Hgb Hct MCV MCH MCHC RDW Plt Count Lymph % (Auto) [place]s % (Auto) Lymph # [place] # Baso # Seg Neutrophils % Seg Neuts % (Manual) Lymphocytes % (Manual) Monocytes % (Manual) Eosinophils % (Manual) Basophils % (Manual) Nucleated RBC % Seg Neutrophils # Seg Neutrophils # Man Lymphocytes # (Manual) Monocytes # (Manual) Eosinophils # (Manual) Basophils # (Manual) PT INR Fibrinogen dRVVT Confirm Interp Factor V Activity POC ABG pH POC ABG pCO2 POC ABG pO2 ABG pO2 ABG HCO3 ABG Base Excess ABG Hemoglobin Oxyhemoglobin Sodium Potassium Chloride Carbon Dioxide BUN Creatinine Glucose POC Glucose 130 H 135 H 132 H Lactic Acid Calcium Phosphorus Magnesium Direct Bilirubin AST ALT Alkaline Phosphatase Lactate Dehydrogenase Troponin T C-Reactive Protein Total Protein Albumin Prealbumin Triglycerides Cholesterol LDL Cholesterol Direct HDL Cholesterol PTH Intact Urine pH Urine WBC (Auto) Urine Creatinine Urine Total Protein Fluid Total Protein Vancomycin Trough Rheumatoid Factor Complement C4 Miscellaneous Test Crossmatch 01/15/17 01/15/17 01/15/17 05:01 11:55 12:45 WBC 16.2 H RBC 3.00 L Hgb 8.1 L Hct 25.4 L MCV MCH 27 L MCHC RDW 17.6 H Plt Count Lymph % (Auto) 11.7 L Towns % (Auto) 7.8 H Lymph # Towns # 1.3 H Baso # Seg Neutrophils % 80.1 H Seg Neuts % (Manual) Lymphocytes % (Manual) Monocytes % (Manual) Eosinophils % (Manual) Basophils % (Manual) Nucleated RBC % Seg Neutrophils # 13.0 H Seg Neutrophils # Man Lymphocytes # (Manual) Monocytes # (Manual) Eosinophils # (Manual) Basophils # (Manual) PT INR Fibrinogen dRVVT Confirm Interp Factor V Activity POC ABG pH POC ABG pCO2 POC ABG pO2 ABG pO2 ABG HCO3 ABG Base Excess ABG Hemoglobin Oxyhemoglobin Sodium Potassium Chloride Carbon Dioxide BUN Creatinine Glucose POC Glucose 126 H 125 H Lactic Acid Calcium Phosphorus Magnesium Direct Bilirubin AST ALT Alkaline Phosphatase Lactate Dehydrogenase Troponin T C-Reactive Protein Total Protein Albumin Prealbumin Triglycerides Cholesterol LDL Cholesterol Direct HDL Cholesterol PTH Intact Urine pH Urine WBC (Auto) Urine Creatinine Urine Total Protein Fluid Total Protein Vancomycin Trough Rheumatoid Factor Complement C4 Miscellaneous Test Crossmatch 01/15/17 01/15/17 01/15/17 12:45 17:31 23:39 WBC RBC Hgb Hct MCV MCH MCHC RDW Plt Count Lymph % (Auto) Towns % (Auto) Lymph # Towns # Baso # Seg Neutrophils % Seg Neuts % (Manual) Lymphocytes % (Manual) Monocytes % (Manual) Eosinophils % (Manual) Basophils % (Manual) Nucleated RBC % Seg Neutrophils # Seg Neutrophils # Man Lymphocytes # (Manual) Monocytes # (Manual) Eosinophils # (Manual) Basophils # (Manual) PT INR Fibrinogen dRVVT Confirm Interp Factor V Activity POC ABG pH POC ABG pCO2 POC ABG pO2 ABG pO2 ABG HCO3 ABG Base Excess ABG Hemoglobin Oxyhemoglobin Sodium 136 L Potassium Chloride Carbon Dioxide BUN 87 H Creatinine 1.7 H Glucose 108 H POC Glucose 129 H 112 H Lactic Acid Calcium Phosphorus Magnesium Direct Bilirubin AST ALT Alkaline Phosphatase Lactate Dehydrogenase Troponin T C-Reactive Protein Total Protein Albumin Prealbumin Triglycerides Cholesterol LDL Cholesterol Direct HDL Cholesterol PTH Intact Urine pH Urine WBC (Auto) Urine Creatinine Urine Total Protein Fluid Total Protein Vancomycin Trough Rheumatoid Factor Complement C4 Miscellaneous Test Crossmatch 01/16/17 01/16/17 01/16/17 05:23 11:42 12:32 WBC RBC Hgb Hct MCV MCH MCHC RDW Plt Count Lymph % (Auto) Towns % (Auto) Lymph # Towns # Baso # Seg Neutrophils % Seg Neuts % (Manual) Lymphocytes % (Manual) Monocytes % (Manual) Eosinophils % (Manual) Basophils % (Manual) Nucleated RBC % Seg Neutrophils # Seg Neutrophils # Man Lymphocytes # (Manual) Monocytes # (Manual) Eosinophils # (Manual) Basophils # (Manual) PT INR Fibrinogen dRVVT Confirm Interp Factor V Activity POC ABG pH 7.499 H POC ABG pCO2 30.9 L POC ABG pO2 51 L ABG pO2 ABG HCO3 ABG Base Excess ABG Hemoglobin Oxyhemoglobin Sodium Potassium Chloride Carbon Dioxide BUN Creatinine Glucose POC Glucose 118 H 133 H Lactic Acid Calcium Phosphorus Magnesium Direct Bilirubin AST ALT Alkaline Phosphatase Lactate Dehydrogenase Troponin T C-Reactive Protein Total Protein Albumin Prealbumin Triglycerides Cholesterol LDL Cholesterol Direct HDL Cholesterol PTH Intact Urine pH Urine WBC (Auto) Urine Creatinine Urine Total Protein Fluid Total Protein Vancomycin Trough Rheumatoid Factor Complement C4 Miscellaneous Test Crossmatch 01/16/17 01/16/17 01/16/17 17:52 23:57 Unknown WBC RBC Hgb Hct MCV MCH MCHC RDW Plt Count Lymph % (Auto) Towns % (Auto) Lymph # Towns # Baso # Seg Neutrophils % Seg Neuts % (Manual) Lymphocytes % (Manual) Monocytes % (Manual) Eosinophils % (Manual) Basophils % (Manual) Nucleated RBC % Seg Neutrophils # Seg Neutrophils # Man Lymphocytes # (Manual) Monocytes # (Manual) Eosinophils # (Manual) Basophils # (Manual) PT INR Fibrinogen dRVVT Confirm Interp Factor V Activity POC ABG pH POC ABG pCO2 POC ABG pO2 ABG pO2 ABG HCO3 ABG Base Excess ABG Hemoglobin Oxyhemoglobin Sodium 135 L Potassium Chloride Carbon Dioxide BUN 101 H Creatinine 1.8 H Glucose 117 H POC Glucose 130 H 143 H Lactic Acid Calcium Phosphorus 5.80 H Magnesium Direct Bilirubin AST ALT Alkaline Phosphatase Lactate Dehydrogenase Troponin T C-Reactive Protein Total Protein Albumin Prealbumin Triglycerides Cholesterol LDL Cholesterol Direct HDL Cholesterol PTH Intact Urine pH Urine WBC (Auto) Urine Creatinine Urine Total Protein Fluid Total Protein Vancomycin Trough Rheumatoid Factor Complement C4 Miscellaneous Test Crossmatch 01/17/17 01/17/17 01/17/17 05:30 05:46 11:49 WBC RBC Hgb Hct MCV MCH MCHC RDW Plt Count Lymph % (Auto) Towns % (Auto) Lymph # Town[place] # Baso # Seg Neutrophils % Seg Neuts % (Manual) Lymphocytes % (Manual) Monocytes % (Manual) Eosinophils % (Manual) Basophils % (Manual) Nucleated RBC % Seg Neutrophils # Seg Neutrophils # Man Lymphocytes # (Manual) Monocytes # (Manual) Eosinophils # (Manual) Basophils # (Manual) PT INR Fibrinogen dRVVT Confirm Interp Factor V Activity POC ABG pH POC ABG pCO2 POC ABG pO2 ABG pO2 ABG HCO3 ABG Base Excess ABG Hemoglobin Oxyhemoglobin Sodium 134 L Potassium Chloride 95.8 L Carbon Dioxide BUN 66 H Creatinine 1.3 H Glucose 138 H POC Glucose 147 H 124 H Lactic Acid Calcium Phosphorus Magnesium Direct Bilirubin AST ALT Alkaline Phosphatase 254 H Lactate Dehydrogenase Troponin T C-Reactive Protein Total Protein Albumin 1.3 L Prealbumin Triglycerides Cholesterol LDL Cholesterol Direct HDL Cholesterol PTH Intact Urine pH Urine WBC (Auto) Urine Creatinine Urine Total Protein Fluid Total Protein Vancomycin Trough Rheumatoid Factor Complement C4 Miscellaneous Test Crossmatch 01/17/17 01/17/17 01/18/17 17:30 23:41 05:15 WBC RBC Hgb Hct MCV MCH MCHC RDW Plt Count Lymph % (Auto) Towns % (Auto) Lymph # [place] # Baso # Seg Neutrophils % Seg Neuts % (Manual) Lymphocytes % (Manual) Monocytes % (Manual) Eosinophils % (Manual) Basophils % (Manual) Nucleated RBC % Seg Neutrophils # Seg Neutrophils # Man Lymphocytes # (Manual) Monocytes # (Manual) Eosinophils # (Manual) Basophils # (Manual) PT INR Fibrinogen dRVVT Confirm Interp Factor V Activity POC ABG pH POC ABG pCO2 POC ABG pO2 ABG pO2 ABG HCO3 ABG Base Excess ABG Hemoglobin Oxyhemoglobin Sodium Potassium Chloride Carbon Dioxide BUN 89 H Creatinine 1.7 H Glucose 118 H POC Glucose 137 H 119 H Lactic Acid Calcium Phosphorus Magnesium Direct Bilirubin AST ALT Alkaline Phosphatase Lactate Dehydrogenase Troponin T C-Reactive Protein Total Protein Albumin Prealbumin Triglycerides Cholesterol LDL Cholesterol Direct HDL Cholesterol PTH Intact Urine pH Urine WBC (Auto) Urine Creatinine Urine Total Protein Fluid Total Protein Vancomycin Trough Rheumatoid Factor Complement C4 Miscellaneous Test Crossmatch 01/18/17 01/18/17 01/18/17 05:19 12:16 18:11 WBC RBC Hgb Hct MCV MCH MCHC RDW Plt Count Lymph % (Auto) Towns % (Auto) Lymph # Town[place] # Baso # Seg Neutrophils % Seg Neuts % (Manual) Lymphocytes % (Manual) Monocytes % (Manual) Eosinophils % (Manual) Basophils % (Manual) Nucleated RBC % Seg Neutrophils # Seg Neutrophils # Man Lymphocytes # (Manual) Monocytes # (Manual) Eosinophils # (Manual) Basophils # (Manual) PT INR Fibrinogen dRVVT Confirm Interp Factor V Activity POC ABG pH POC ABG pCO2 POC ABG pO2 ABG pO2 ABG HCO3 ABG Base Excess ABG Hemoglobin Oxyhemoglobin Sodium Potassium Chloride Carbon Dioxide BUN Creatinine Glucose POC Glucose 134 H 188 H 113 H Lactic Acid Calcium Phosphorus Magnesium Direct Bilirubin AST ALT Alkaline Phosphatase Lactate Dehydrogenase Troponin T C-Reactive Protein Total Protein Albumin Prealbumin Triglycerides Cholesterol LDL Cholesterol Direct HDL Cholesterol PTH Intact Urine pH Urine WBC (Auto) Urine Creatinine Urine Total Protein Fluid Total Protein Vancomycin Trough Rheumatoid Factor Complement C4 Miscellaneous Test Crossmatch 01/19/17 01/19/17 01/19/17 00:00 05:30 05:36 WBC RBC Hgb Hct MCV MCH MCHC RDW Plt Count Lymph % (Auto) Towns % (Auto) Lymph # [place] # Baso # Seg Neutrophils % Seg Neuts % (Manual) Lymphocytes % (Manual) Monocytes % (Manual) Eosinophils % (Manual) Basophils % (Manual) Nucleated RBC % Seg Neutrophils # Seg Neutrophils # Man Lymphocytes # (Manual) Monocytes # (Manual) Eosinophils # (Manual) Basophils # (Manual) PT INR Fibrinogen dRVVT Confirm Interp Factor V Activity POC ABG pH POC ABG pCO2 POC ABG pO2 ABG pO2 ABG HCO3 ABG Base Excess ABG Hemoglobin Oxyhemoglobin Sodium Potassium Chloride Carbon Dioxide BUN 70 H Creatinine 1.5 H Glucose 121 H POC Glucose 137 H 155 H Lactic Acid Calcium Phosphorus 2.10 L D Magnesium Direct Bilirubin AST ALT Alkaline Phosphatase Lactate Dehydrogenase Troponin T C-Reactive Protein Total Protein Albumin Prealbumin Triglycerides Cholesterol LDL Cholesterol Direct HDL Cholesterol PTH Intact Urine pH Urine WBC (Auto) Urine Creatinine Urine Total Protein Fluid Total Protein Vancomycin Trough Rheumatoid Factor Complement C4 Miscellaneous Test Crossmatch 01/19/17 01/19/17 01/19/17 11:59 15:32 17:57 WBC RBC Hgb Hct MCV MCH MCHC RDW Plt Count Lymph % (Auto) Towns % (Auto) Lymph # [place] # Baso # Seg Neutrophils % Seg Neuts % (Manual) Lymphocytes % (Manual) Monocytes % (Manual) Eosinophils % (Manual) Basophils % (Manual) Nucleated RBC % Seg Neutrophils # Seg Neutrophils # Man Lymphocytes # (Manual) Monocytes # (Manual) Eosinophils # (Manual) Basophils # (Manual) PT INR Fibrinogen dRVVT Confirm Interp Factor V Activity POC ABG pH POC ABG pCO2 33.1 L POC ABG pO2 76 L ABG pO2 ABG HCO3 ABG Base Excess ABG Hemoglobin Oxyhemoglobin Sodium Potassium Chloride Carbon Dioxide BUN Creatinine Glucose POC Glucose 156 H 129 H Lactic Acid Calcium Phosphorus Magnesium Direct Bilirubin AST ALT Alkaline Phosphatase Lactate Dehydrogenase Troponin T C-Reactive Protein Total Protein Albumin Prealbumin Triglycerides Cholesterol LDL Cholesterol Direct HDL Cholesterol PTH Intact Urine pH Urine WBC (Auto) Urine Creatinine Urine Total Protein Fluid Total Protein Vancomycin Trough Rheumatoid Factor Complement C4 Miscellaneous Test Crossmatch 01/19/17 01/20/17 01/20/17 23:49 04:00 05:21 WBC RBC Hgb Hct MCV MCH MCHC RDW Plt Count Lymph % (Auto) Towns % (Auto) Lymph # [place] # Baso # Seg Neutrophils % Seg Neuts % (Manual) Lymphocytes % (Manual) Monocytes % (Manual) Eosinophils % (Manual) Basophils % (Manual) Nucleated RBC % Seg Neutrophils # Seg Neutrophils # Man Lymphocytes # (Manual) Monocytes # (Manual) Eosinophils # (Manual) Basophils # (Manual) PT INR Fibrinogen dRVVT Confirm Interp Factor V Activity POC ABG pH POC ABG pCO2 POC ABG pO2 ABG pO2 ABG HCO3 ABG Base Excess ABG Hemoglobin Oxyhemoglobin Sodium Potassium Chloride Carbon Dioxide BUN 96 H Creatinine 1.9 H Glucose 106 H POC Glucose 125 H 130 H Lactic Acid Calcium Phosphorus 2.40 L Magnesium Direct Bilirubin AST ALT Alkaline Phosphatase Lactate Dehydrogenase Troponin T C-Reactive Protein Total Protein Albumin Prealbumin Triglycerides Cholesterol LDL Cholesterol Direct HDL Cholesterol PTH Intact Urine pH Urine WBC (Auto) Urine Creatinine Urine Total Protein Fluid Total Protein Vancomycin Trough Rheumatoid Factor Complement C4 Miscellaneous Test Crossmatch 01/20/17 01/20/17 01/20/17 11:58 12:17 17:26 WBC RBC Hgb Hct MCV MCH MCHC RDW Plt Count Lymph % (Auto) [place]s % (Auto) Lymph # [place] # Baso # Seg Neutrophils % Seg Neuts % (Manual) Lymphocytes % (Manual) Monocytes % (Manual) Eosinophils % (Manual) Basophils % (Manual) Nucleated RBC % Seg Neutrophils # Seg Neutrophils # Man Lymphocytes # (Manual) Monocytes # (Manual) Eosinophils # (Manual) Basophils # (Manual) PT INR Fibrinogen dRVVT Confirm Interp Factor V Activity POC ABG pH POC ABG pCO2 POC ABG pO2 70 L ABG pO2 ABG HCO3 ABG Base Excess ABG Hemoglobin Oxyhemoglobin Sodium Potassium Chloride Carbon Dioxide BUN Creatinine Glucose POC Glucose 118 H 154 H Lactic Acid Calcium Phosphorus Magnesium Direct Bilirubin AST ALT Alkaline Phosphatase Lactate Dehydrogenase Troponin T C-Reactive Protein Total Protein Albumin Prealbumin Triglycerides Cholesterol LDL Cholesterol Direct HDL Cholesterol PTH Intact Urine pH Urine WBC (Auto) Urine Creatinine Urine Total Protein Fluid Total Protein Vancomycin Trough Rheumatoid Factor Complement C4 Miscellaneous Test Crossmatch 01/21/17 01/21/17 01/21/17 04:00 04:56 11:46 WBC RBC Hgb Hct MCV MCH MCHC RDW Plt Count Lymph % (Auto) Towns % (Auto) Lymph # [place] # Baso # Seg Neutrophils % Seg Neuts % (Manual) Lymphocytes % (Manual) Monocytes % (Manual) Eosinophils % (Manual) Basophils % (Manual) Nucleated RBC % Seg Neutrophils # Seg Neutrophils # Man Lymphocytes # (Manual) Monocytes # (Manual) Eosinophils # (Manual) Basophils # (Manual) PT INR Fibrinogen dRVVT Confirm Interp Factor V Activity POC ABG pH POC ABG pCO2 POC ABG pO2 ABG pO2 ABG HCO3 ABG Base Excess ABG Hemoglobin Oxyhemoglobin Sodium Potassium 3.5 L Chloride 97.4 L Carbon Dioxide BUN 66 H Creatinine 1.4 H Glucose POC Glucose 116 H 106 H Lactic Acid Calcium Phosphorus 2.10 L Magnesium Direct Bilirubin AST ALT Alkaline Phosphatase Lactate Dehydrogenase Troponin T C-Reactive Protein Total Protein Albumin Prealbumin Triglycerides Cholesterol LDL Cholesterol Direct HDL Cholesterol PTH Intact Urine pH Urine WBC (Auto) Urine Creatinine Urine Total Protein Fluid Total Protein Vancomycin Trough Rheumatoid Factor Complement C4 Miscellaneous Test Crossmatch 01/21/17 01/21/17 01/22/17 17:25 23:49 05:35 WBC RBC Hgb Hct MCV MCH MCHC RDW Plt Count Lymph % (Auto) [place]s % (Auto) Lymph # [place] # Baso # Seg Neutrophils % Seg Neuts % (Manual) Lymphocytes % (Manual) Monocytes % (Manual) Eosinophils % (Manual) Basophils % (Manual) Nucleated RBC % Seg Neutrophils # Seg Neutrophils # Man Lymphocytes # (Manual) Monocytes # (Manual) Eosinophils # (Manual) Basophils # (Manual) PT INR Fibrinogen dRVVT Confirm Interp Factor V Activity POC ABG pH POC ABG pCO2 POC ABG pO2 ABG pO2 ABG HCO3 ABG Base Excess ABG Hemoglobin Oxyhemoglobin Sodium Potassium Chloride Carbon Dioxide BUN Creatinine Glucose POC Glucose 106 H 133 H 107 H Lactic Acid Calcium Phosphorus Magnesium Direct Bilirubin AST ALT Alkaline Phosphatase Lactate Dehydrogenase Troponin T C-Reactive Protein Total Protein Albumin Prealbumin Triglycerides Cholesterol LDL Cholesterol Direct HDL Cholesterol PTH Intact Urine pH Urine WBC (Auto) Urine Creatinine Urine Total Protein Fluid Total Protein Vancomycin Trough Rheumatoid Factor Complement C4 Miscellaneous Test Crossmatch 01/22/17 01/22/17 01/22/17 07:20 07:20 11:31 WBC RBC 2.75 L Hgb 7.5 L Hct 22.7 L MCV MCH 27 L MCHC RDW 17.5 H Plt Count Lymph % (Auto) Towns % (Auto) Lymph # [place] # Baso # Seg Neutrophils % Seg Neuts % (Manual) Lymphocytes % (Manual) Monocytes % (Manual) Eosinophils % (Manual) Basophils % (Manual) Nucleated RBC % Seg Neutrophils # Seg Neutrophils # Man Lymphocytes # (Manual) Monocytes # (Manual) Eosinophils # (Manual) Basophils # (Manual) PT INR Fibrinogen dRVVT Confirm Interp Factor V Activity POC ABG pH POC ABG pCO2 POC ABG pO2 ABG pO2 ABG HCO3 ABG Base Excess ABG Hemoglobin Oxyhemoglobin Sodium Potassium 3.3 L Chloride Carbon Dioxide BUN 42 H Creatinine Glucose 105 H POC Glucose 124 H Lactic Acid Calcium Phosphorus 1.70 L Magnesium Direct Bilirubin AST ALT Alkaline Phosphatase Lactate Dehydrogenase Troponin T C-Reactive Protein Total Protein Albumin Prealbumin Triglycerides Cholesterol LDL Cholesterol Direct HDL Cholesterol PTH Intact Urine pH Urine WBC (Auto) Urine Creatinine Urine Total Protein Fluid Total Protein Vancomycin Trough Rheumatoid Factor Complement C4 Miscellaneous Test Crossmatch 01/22/17 01/22/17 01/23/17 17:16 23:35 05:35 WBC RBC Hgb Hct MCV MCH MCHC RDW Plt Count Lymph % (Auto) [place] % (Auto) Lymph # [place] # Baso # Seg Neutrophils % Seg Neuts % (Manual) Lymphocytes % (Manual) Monocytes % (Manual) Eosinophils % (Manual) Basophils % (Manual) Nucleated RBC % Seg Neutrophils # Seg Neutrophils # Man Lymphocytes # (Manual) Monocytes # (Manual) Eosinophils # (Manual) Basophils # (Manual) PT INR Fibrinogen dRVVT Confirm Interp Factor V Activity POC ABG pH POC ABG pCO2 POC ABG pO2 ABG pO2 ABG HCO3 ABG Base Excess ABG Hemoglobin Oxyhemoglobin Sodium Potassium Chloride Carbon Dioxide BUN Creatinine Glucose POC Glucose 135 H 120 H 111 H Lactic Acid Calcium Phosphorus Magnesium Direct Bilirubin AST ALT Alkaline Phosphatase Lactate Dehydrogenase Troponin T C-Reactive Protein Total Protein Albumin Prealbumin Triglycerides Cholesterol LDL Cholesterol Direct HDL Cholesterol PTH Intact Urine pH Urine WBC (Auto) Urine Creatinine Urine Total Protein Fluid Total Protein Vancomycin Trough Rheumatoid Factor Complement C4 Miscellaneous Test Crossmatch 01/23/17 01/23/17 01/23/17 06:10 17:27 23:44 WBC RBC Hgb Hct MCV MCH MCHC RDW Plt Count Lymph % (Auto) [place]s % (Auto) Lymph # [place] # Baso # Seg Neutrophils % Seg Neuts % (Manual) Lymphocytes % (Manual) Monocytes % (Manual) Eosinophils % (Manual) Basophils % (Manual) Nucleated RBC % Seg Neutrophils # Seg Neutrophils # Man Lymphocytes # (Manual) Monocytes # (Manual) Eosinophils # (Manual) Basophils # (Manual) PT INR Fibrinogen dRVVT Confirm Interp Factor V Activity POC ABG pH POC ABG pCO2 POC ABG pO2 ABG pO2 ABG HCO3 ABG Base Excess ABG Hemoglobin Oxyhemoglobin Sodium Potassium 3.3 L Chloride Carbon Dioxide BUN 66 H Creatinine 1.3 H Glucose 109 H POC Glucose 120 H 115 H Lactic Acid Calcium Phosphorus 2.20 L D Magnesium Direct Bilirubin AST ALT Alkaline Phosphatase Lactate Dehydrogenase Troponin T C-Reactive Protein Total Protein Albumin Prealbumin Triglycerides Cholesterol LDL Cholesterol Direct HDL Cholesterol PTH Intact Urine pH Urine WBC (Auto) Urine Creatinine Urine Total Protein Fluid Total Protein Vancomycin Trough Rheumatoid Factor Complement C4 Miscellaneous Test Crossmatch 01/24/17 01/24/17 01/24/17 05:19 05:50 12:19 WBC RBC Hgb Hct MCV MCH MCHC RDW Plt Count Lymph % (Auto) [place]s % (Auto) Lymph # [place] # Baso # Seg Neutrophils % Seg Neuts % (Manual) Lymphocytes % (Manual) Monocytes % (Manual) Eosinophils % (Manual) Basophils % (Manual) Nucleated RBC % Seg Neutrophils # Seg Neutrophils # Man Lymphocytes # (Manual) Monocytes # (Manual) Eosinophils # (Manual) Basophils # (Manual) PT INR Fibrinogen dRVVT Confirm Interp Factor V Activity POC ABG pH POC ABG pCO2 POC ABG pO2 ABG pO2 ABG HCO3 ABG Base Excess ABG Hemoglobin Oxyhemoglobin Sodium Potassium Chloride Carbon Dioxide BUN 47 H Creatinine Glucose 117 H POC Glucose 126 H 119 H Lactic Acid Calcium Phosphorus 2.30 L Magnesium 1.60 L Direct Bilirubin AST ALT Alkaline Phosphatase Lactate Dehydrogenase Troponin T C-Reactive Protein Total Protein Albumin Prealbumin Triglycerides Cholesterol LDL Cholesterol Direct HDL Cholesterol PTH Intact Urine pH Urine WBC (Auto) Urine Creatinine Urine Total Protein Fluid Total Protein Vancomycin Trough Rheumatoid Factor Complement C4 Miscellaneous Test Crossmatch 01/24/17 01/25/17 01/25/17 17:08 00:37 04:00 WBC RBC Hgb Hct MCV MCH MCHC RDW Plt Count Lymph % (Auto) [place]s % (Auto) Lymph # [place] # Baso # Seg Neutrophils % Seg Neuts % (Manual) Lymphocytes % (Manual) Monocytes % (Manual) Eosinophils % (Manual) Basophils % (Manual) Nucleated RBC % Seg Neutrophils # Seg Neutrophils # Man Lymphocytes # (Manual) Monocytes # (Manual) Eosinophils # (Manual) Basophils # (Manual) PT INR Fibrinogen dRVVT Confirm Interp Factor V Activity POC ABG pH POC ABG pCO2 POC ABG pO2 ABG pO2 ABG HCO3 ABG Base Excess ABG Hemoglobin Oxyhemoglobin Sodium Potassium Chloride Carbon Dioxide BUN 72 H Creatinine 1.3 H Glucose POC Glucose 127 H 110 H Lactic Acid Calcium Phosphorus Magnesium Direct Bilirubin AST ALT Alkaline Phosphatase Lactate Dehydrogenase Troponin T C-Reactive Protein Total Protein Albumin Prealbumin Triglycerides Cholesterol LDL Cholesterol Direct HDL Cholesterol PTH Intact Urine pH Urine WBC (Auto) Urine Creatinine Urine Total Protein Fluid Total Protein Vancomycin Trough Rheumatoid Factor Complement C4 Miscellaneous Test Crossmatch 01/25/17 01/25/17 01/25/17 04:00 11:15 13:05 WBC RBC 2.49 L Hgb 6.7 L Hct 20.9 L MCV MCH 27 L MCHC RDW 18.8 H Plt Count Lymph % (Auto) Towns % (Auto) 10.1 H Lymph # Towns # 1.0 H Baso # Seg Neutrophils % Seg Neuts % (Manual) Lymphocytes % (Manual) Monocytes % (Manual) Eosinophils % (Manual) Basophils % (Manual) Nucleated RBC % Seg Neutrophils # Seg Neutrophils # Man Lymphocytes # (Manual) Monocytes # (Manual) Eosinophils # (Manual) Basophils # (Manual) PT INR Fibrinogen dRVVT Confirm Interp Factor V Activity POC ABG pH POC ABG pCO2 POC ABG pO2 ABG pO2 ABG HCO3 ABG Base Excess ABG Hemoglobin Oxyhemoglobin Sodium Potassium Chloride Carbon Dioxide BUN Creatinine Glucose POC Glucose 128 H Lactic Acid Calcium Phosphorus Magnesium Direct Bilirubin AST ALT Alkaline Phosphatase Lactate Dehydrogenase Troponin T C-Reactive Protein Total Protein Albumin Prealbumin Triglycerides Cholesterol LDL Cholesterol Direct HDL Cholesterol PTH Intact Urine pH Urine WBC (Auto) Urine Creatinine Urine Total Protein Fluid Total Protein Vancomycin Trough Rheumatoid Factor Complement C4 Miscellaneous Test Crossmatch See Detail 01/25/17 01/25/17 01/26/17 18:02 23:07 01:20 WBC RBC Hgb Hct MCV MCH MCHC RDW Plt Count Lymph % (Auto) Towns % (Auto) Lymph # [place] # Baso # Seg Neutrophils % Seg Neuts % (Manual) Lymphocytes % (Manual) Monocytes % (Manual) Eosinophils % (Manual) Basophils % (Manual) Nucleated RBC % Seg Neutrophils # Seg Neutrophils # Man Lymphocytes # (Manual) Monocytes # (Manual) Eosinophils # (Manual) Basophils # (Manual) PT INR Fibrinogen dRVVT Confirm Interp Factor V Activity POC ABG pH POC ABG pCO2 POC ABG pO2 ABG pO2 ABG HCO3 ABG Base Excess ABG Hemoglobin Oxyhemoglobin Sodium Potassium Chloride Carbon Dioxide BUN Creatinine Glucose POC Glucose 120 H 123 H 112 H Lactic Acid Calcium Phosphorus Magnesium Direct Bilirubin AST ALT Alkaline Phosphatase Lactate Dehydrogenase Troponin T C-Reactive Protein Total Protein Albumin Prealbumin Triglycerides Cholesterol LDL Cholesterol Direct HDL Cholesterol PTH Intact Urine pH Urine WBC (Auto) Urine Creatinine Urine Total Protein Fluid Total Protein Vancomycin Trough Rheumatoid Factor Complement C4 Miscellaneous Test Crossmatch 01/26/17 01/26/17 01/26/17 04:20 04:20 11:23 WBC 13.1 H RBC 3.28 L Hgb 9.0 L Hct 26.9 L D MCV MCH 27 L MCHC RDW 17.2 H Plt Count Lymph % (Auto) Towns % (Auto) 9.0 H Lymph # Towns # 1.2 H Baso # Seg Neutrophils % 73.1 H Seg Neuts % (Manual) Lymphocytes % (Manual) Monocytes % (Manual) Eosinophils % (Manual) Basophils % (Manual) Nucleated RBC % Seg Neutrophils # 9.6 H Seg Neutrophils # Man Lymphocytes # (Manual) Monocytes # (Manual) Eosinophils # (Manual) Basophils # (Manual) PT INR Fibrinogen dRVVT Confirm Interp Factor V Activity POC ABG pH POC ABG pCO2 POC ABG pO2 ABG pO2 ABG HCO3 ABG Base Excess ABG Hemoglobin Oxyhemoglobin Sodium Potassium Chloride Carbon Dioxide BUN 51 H Creatinine Glucose 117 H POC Glucose 125 H Lactic Acid Calcium Phosphorus Magnesium Direct Bilirubin AST ALT Alkaline Phosphatase Lactate Dehydrogenase Troponin T C-Reactive Protein Total Protein Albumin Prealbumin Triglycerides Cholesterol LDL Cholesterol Direct HDL Cholesterol PTH Intact Urine pH Urine WBC (Auto) Urine Creatinine Urine Total Protein Fluid Total Protein Vancomycin Trough Rheumatoid Factor Complement C4 Miscellaneous Test Crossmatch 01/26/17 01/27/17 01/27/17 17:11 00:30 04:00 WBC RBC Hgb Hct MCV MCH MCHC RDW Plt Count Lymph % (Auto) Towns % (Auto) Lymph # [place] # Baso # Seg Neutrophils % Seg Neuts % (Manual) Lymphocytes % (Manual) Monocytes % (Manual) Eosinophils % (Manual) Basophils % (Manual) Nucleated RBC % Seg Neutrophils # Seg Neutrophils # Man Lymphocytes # (Manual) Monocytes # (Manual) Eosinophils # (Manual) Basophils # (Manual) PT INR Fibrinogen dRVVT Confirm Interp Factor V Activity POC ABG pH POC ABG pCO2 POC ABG pO2 ABG pO2 ABG HCO3 ABG Base Excess ABG Hemoglobin Oxyhemoglobin Sodium Potassium Chloride 97.7 L Carbon Dioxide 21 L BUN 79 H Creatinine 1.7 H D Glucose 112 H POC Glucose 133 H 135 H Lactic Acid Calcium Phosphorus 5.00 H D Magnesium Direct Bilirubin AST ALT Alkaline Phosphatase Lactate Dehydrogenase Troponin T C-Reactive Protein Total Protein Albumin Prealbumin Triglycerides Cholesterol LDL Cholesterol Direct HDL Cholesterol PTH Intact Urine pH Urine WBC (Auto) Urine Creatinine Urine Total Protein Fluid Total Protein Vancomycin Trough Rheumatoid Factor Complement C4 Miscellaneous Test Crossmatch 01/27/17 01/27/17 01/27/17 05:12 12:18 17:25 WBC RBC Hgb Hct MCV MCH MCHC RDW Plt Count Lymph % (Auto) Towns % (Auto) Lymph # Towns # Baso # Seg Neutrophils % Seg Neuts % (Manual) Lymphocytes % (Manual) Monocytes % (Manual) Eosinophils % (Manual) Basophils % (Manual) Nucleated RBC % Seg Neutrophils # Seg Neutrophils # Man Lymphocytes # (Manual) Monocytes # (Manual) Eosinophils # (Manual) Basophils # (Manual) PT INR Fibrinogen dRVVT Confirm Interp Factor V Activity POC ABG pH POC ABG pCO2 POC ABG pO2 ABG pO2 ABG HCO3 ABG Base Excess ABG Hemoglobin Oxyhemoglobin Sodium Potassium Chloride Carbon Dioxide BUN Creatinine Glucose POC Glucose 116 H 153 H 152 H Lactic Acid Calcium Phosphorus Magnesium Direct Bilirubin AST ALT Alkaline Phosphatase Lactate Dehydrogenase Troponin T C-Reactive Protein Total Protein Albumin Prealbumin Triglycerides Cholesterol LDL Cholesterol Direct HDL Cholesterol PTH Intact Urine pH Urine WBC (Auto) Urine Creatinine Urine Total Protein Fluid Total Protein Vancomycin Trough Rheumatoid Factor Complement C4 Miscellaneous Test Crossmatch 01/27/17 01/28/17 01/28/17 23:42 04:00 04:00 WBC 14.4 H RBC 2.82 L Hgb 7.4 L Hct 23.5 L MCV MCH 26 L MCHC RDW 17.6 H Plt Count Lymph % (Auto) 10.2 L Towns % (Auto) 11.0 H Lymph # Towns # 1.6 H Baso # Seg Neutrophils % 78.0 H Seg Neuts % (Manual) Lymphocytes % (Manual) Monocytes % (Manual) Eosinophils % (Manual) Basophils % (Manual) Nucleated RBC % Seg Neutrophils # 11.3 H Seg Neutrophils # Man Lymphocytes # (Manual) Monocytes # (Manual) Eosinophils # (Manual) Basophils # (Manual) PT INR Fibrinogen dRVVT Confirm Interp Factor V Activity POC ABG pH POC ABG pCO2 POC ABG pO2 ABG pO2 ABG HCO3 ABG Base Excess ABG Hemoglobin Oxyhemoglobin Sodium Potassium Chloride Carbon Dioxide BUN 55 H Creatinine 1.3 H Glucose 114 H POC Glucose 121 H Lactic Acid Calcium Phosphorus Magnesium Direct Bilirubin AST ALT Alkaline Phosphatase Lactate Dehydrogenase Troponin T C-Reactive Protein Total Protein Albumin 1.4 L Prealbumin Triglycerides Cholesterol LDL Cholesterol Direct HDL Cholesterol PTH Intact Urine pH Urine WBC (Auto) Urine Creatinine Urine Total Protein Fluid Total Protein Vancomycin Trough Rheumatoid Factor Complement C4 Miscellaneous Test Crossmatch 01/28/17 01/28/17 01/29/17 04:59 12:30 00:02 WBC RBC Hgb Hct MCV MCH MCHC RDW Plt Count Lymph % (Auto) Towns % (Auto) Lymph # Towns # Baso # Seg Neutrophils % Seg Neuts % (Manual) Lymphocytes % (Manual) Monocytes % (Manual) Eosinophils % (Manual) Basophils % (Manual) Nucleated RBC % Seg Neutrophils # Seg Neutrophils # Man Lymphocytes # (Manual) Monocytes # (Manual) Eosinophils # (Manual) Basophils # (Manual) PT INR Fibrinogen dRVVT Confirm Interp Factor V Activity POC ABG pH POC ABG pCO2 POC ABG pO2 ABG pO2 ABG HCO3 ABG Base Excess ABG Hemoglobin Oxyhemoglobin Sodium Potassium Chloride Carbon Dioxide BUN Creatinine Glucose POC Glucose 126 H 119 H 138 H Lactic Acid Calcium Phosphorus Magnesium Direct Bilirubin AST ALT Alkaline Phosphatase Lactate Dehydrogenase Troponin T C-Reactive Protein Total Protein Albumin Prealbumin Triglycerides Cholesterol LDL Cholesterol Direct HDL Cholesterol PTH Intact Urine pH Urine WBC (Auto) Urine Creatinine Urine Total Protein Fluid Total Protein Vancomycin Trough Rheumatoid Factor Complement C4 Miscellaneous Test Crossmatch 01/29/17 01/29/17 01/29/17 04:58 06:15 11:35 WBC RBC Hgb Hct MCV MCH MCHC RDW Plt Count Lymph % (Auto) Towns % (Auto) Lymph # Towns # Baso # Seg Neutrophils % Seg Neuts % (Manual) Lymphocytes % (Manual) Monocytes % (Manual) Eosinophils % (Manual) Basophils % (Manual) Nucleated RBC % Seg Neutrophils # Seg Neutrophils # Man Lymphocytes # (Manual) Monocytes # (Manual) Eosinophils # (Manual) Basophils # (Manual) PT INR Fibrinogen dRVVT Confirm Interp Factor V Activity POC ABG pH POC ABG pCO2 POC ABG pO2 ABG pO2 ABG HCO3 ABG Base Excess ABG Hemoglobin Oxyhemoglobin Sodium Potassium Chloride Carbon Dioxide BUN 85 H Creatinine 1.7 H Glucose 105 H POC Glucose 114 H 110 H Lactic Acid Calcium Phosphorus Magnesium 2.40 H Direct Bilirubin AST ALT Alkaline Phosphatase Lactate Dehydrogenase Troponin T C-Reactive Protein Total Protein Albumin Prealbumin Triglycerides Cholesterol LDL Cholesterol Direct HDL Cholesterol PTH Intact Urine pH Urine WBC (Auto) Urine Creatinine Urine Total Protein Fluid Total Protein Vancomycin Trough Rheumatoid Factor Complement C4 Miscellaneous Test Crossmatch 01/29/17 01/29/17 01/30/17 18:24 23:41 05:12 WBC RBC Hgb Hct MCV MCH MCHC RDW Plt Count Lymph % (Auto) Towns % (Auto) Lymph # Towns # Baso # Seg Neutrophils % Seg Neuts % (Manual) Lymphocytes % (Manual) Monocytes % (Manual) Eosinophils % (Manual) Basophils % (Manual) Nucleated RBC % Seg Neutrophils # Seg Neutrophils # Man Lymphocytes # (Manual) Monocytes # (Manual) Eosinophils # (Manual) Basophils # (Manual) PT INR Fibrinogen dRVVT Confirm Interp Factor V Activity POC ABG pH POC ABG pCO2 POC ABG pO2 ABG pO2 ABG HCO3 ABG Base Excess ABG Hemoglobin Oxyhemoglobin Sodium Potassium Chloride Carbon Dioxide BUN Creatinine Glucose POC Glucose 109 H 134 H 109 H Lactic Acid Calcium Phosphorus Magnesium Direct Bilirubin AST ALT Alkaline Phosphatase Lactate Dehydrogenase Troponin T C-Reactive Protein Total Protein Albumin Prealbumin Triglycerides Cholesterol LDL Cholesterol Direct HDL Cholesterol PTH Intact Urine pH Urine WBC (Auto) Urine Creatinine Urine Total Protein Fluid Total Protein Vancomycin Trough Rheumatoid Factor Complement C4 Miscellaneous Test Crossmatch 01/30/17 01/30/17 01/30/17 11:26 17:43 23:39 WBC RBC Hgb Hct MCV MCH MCHC RDW Plt Count Lymph % (Auto) Towns % (Auto) Lymph # Towns # Baso # Seg Neutrophils % Seg Neuts % (Manual) Lymphocytes % (Manual) Monocytes % (Manual) Eosinophils % (Manual) Basophils % (Manual) Nucleated RBC % Seg Neutrophils # Seg Neutrophils # Man Lymphocytes # (Manual) Monocytes # (Manual) Eosinophils # (Manual) Basophils # (Manual) PT INR Fibrinogen dRVVT Confirm Interp Factor V Activity POC ABG pH POC ABG pCO2 POC ABG pO2 ABG pO2 ABG HCO3 ABG Base Excess ABG Hemoglobin Oxyhemoglobin Sodium Potassium Chloride Carbon Dioxide BUN Creatinine Glucose POC Glucose 135 H 143 H 122 H Lactic Acid Calcium Phosphorus Magnesium Direct Bilirubin AST ALT Alkaline Phosphatase Lactate Dehydrogenase Troponin T C-Reactive Protein Total Protein Albumin Prealbumin Triglycerides Cholesterol LDL Cholesterol Direct HDL Cholesterol PTH Intact Urine pH Urine WBC (Auto) Urine Creatinine Urine Total Protein Fluid Total Protein Vancomycin Trough Rheumatoid Factor Complement C4 Miscellaneous Test Crossmatch 01/31/17 01/31/17 01/31/17 04:00 05:40 11:12 WBC RBC Hgb Hct MCV MCH MCHC RDW Plt Count Lymph % (Auto) Towns % (Auto) Lymph # Towns # Baso # Seg Neutrophils % Seg Neuts % (Manual) Lymphocytes % (Manual) Monocytes % (Manual) Eosinophils % (Manual) Basophils % (Manual) Nucleated RBC % Seg Neutrophils # Seg Neutrophils # Man Lymphocytes # (Manual) Monocytes # (Manual) Eosinophils # (Manual) Basophils # (Manual) PT INR Fibrinogen dRVVT Confirm Interp Factor V Activity POC ABG pH POC ABG pCO2 POC ABG pO2 ABG pO2 ABG HCO3 ABG Base Excess ABG Hemoglobin Oxyhemoglobin Sodium Potassium Chloride Carbon Dioxide BUN 78 H Creatinine 1.5 H Glucose 108 H POC Glucose 123 H Lactic Acid Calcium Phosphorus Magnesium Direct Bilirubin AST ALT Alkaline Phosphatase Lactate Dehydrogenase Troponin T C-Reactive Protein 8.10 H Total Protein Albumin Prealbumin Triglycerides Cholesterol LDL Cholesterol Direct HDL Cholesterol PTH Intact Urine pH Urine WBC (Auto) Urine Creatinine Urine Total Protein Fluid Total Protein Vancomycin Trough Rheumatoid Factor Complement C4 Miscellaneous Test Crossmatch 01/31/17 01/31/17 01/31/17 11:16 17:45 17:50 WBC RBC Hgb Hct MCV MCH MCHC RDW Plt Count Lymph % (Auto) Towns % (Auto) Lymph # Towns # Baso # Seg Neutrophils % Seg Neuts % (Manual) Lymphocytes % (Manual) Monocytes % (Manual) Eosinophils % (Manual) Basophils % (Manual) Nucleated RBC % Seg Neutrophils # Seg Neutrophils # Man Lymphocytes # (Manual) Monocytes # (Manual) Eosinophils # (Manual) Basophils # (Manual) PT INR Fibrinogen dRVVT Confirm Interp Factor V Activity POC ABG pH POC ABG pCO2 POC ABG pO2 ABG pO2 ABG HCO3 ABG Base Excess ABG Hemoglobin Oxyhemoglobin Sodium Potassium Chloride Carbon Dioxide BUN Creatinine Glucose POC Glucose 119 H 111 H Lactic Acid Calcium Phosphorus Magnesium Direct Bilirubin AST ALT Alkaline Phosphatase Lactate Dehydrogenase Troponin T C-Reactive Protein Total Protein Albumin Prealbumin Triglycerides Cholesterol LDL Cholesterol Direct HDL Cholesterol PTH Intact 6.76 L Urine pH Urine WBC (Auto) Urine Creatinine Urine Total Protein Fluid Total Protein Vancomycin Trough Rheumatoid Factor Complement C4 Miscellaneous Test Crossmatch 01/31/17 02/01/17 02/01/17 23:19 05:42 09:24 WBC RBC Hgb Hct MCV MCH MCHC RDW Plt Count Lymph % (Auto) Towns % (Auto) Lymph # Towns # Baso # Seg Neutrophils % Seg Neuts % (Manual) Lymphocytes % (Manual) Monocytes % (Manual) Eosinophils % (Manual) Basophils % (Manual) Nucleated RBC % Seg Neutrophils # Seg Neutrophils # Man Lymphocytes # (Manual) Monocytes # (Manual) Eosinophils # (Manual) Basophils # (Manual) PT INR Fibrinogen dRVVT Confirm Interp Factor V Activity POC ABG pH POC ABG pCO2 POC ABG pO2 ABG pO2 ABG HCO3 ABG Base Excess ABG Hemoglobin Oxyhemoglobin Sodium Potassium Chloride Carbon Dioxide BUN Creatinine Glucose POC Glucose 118 H 122 H Lactic Acid Calcium Phosphorus Magnesium 2.60 H Direct Bilirubin AST ALT Alkaline Phosphatase Lactate Dehydrogenase Troponin T C-Reactive Protein Total Protein Albumin Prealbumin Triglycerides Cholesterol LDL Cholesterol Direct HDL Cholesterol PTH Intact Urine pH Urine WBC (Auto) Urine Creatinine Urine Total Protein Fluid Total Protein Vancomycin Trough Rheumatoid Factor Complement C4 Miscellaneous Test Crossmatch 02/01/17 09:24 WBC RBC Hgb Hct MCV MCH MCHC RDW Plt Count Lymph % (Auto) Towns % (Auto) Lymph # Towns # Baso # Seg Neutrophils % Seg Neuts % (Manual) Lymphocytes % (Manual) Monocytes % (Manual) Eosinophils % (Manual) Basophils % (Manual) Nucleated RBC % Seg Neutrophils # Seg Neutrophils # Man Lymphocytes # (Manual) Monocytes # (Manual) Eosinophils # (Manual) Basophils # (Manual) PT INR Fibrinogen dRVVT Confirm Interp Factor V Activity POC ABG pH POC ABG pCO2 POC ABG pO2 ABG pO2 ABG HCO3 ABG Base Excess ABG Hemoglobin Oxyhemoglobin Sodium Potassium Chloride Carbon Dioxide BUN 102 H Creatinine 1.9 H Glucose 120 H POC Glucose Lactic Acid Calcium Phosphorus Magnesium Direct Bilirubin AST ALT Alkaline Phosphatase Lactate Dehydrogenase Troponin T C-Reactive Protein Total Protein Albumin Prealbumin Triglycerides Cholesterol LDL Cholesterol Direct HDL Cholesterol PTH Intact Urine pH Urine WBC (Auto) Urine Creatinine Urine Total Protein Fluid Total Protein Vancomycin Trough Rheumatoid Factor Complement C4 Miscellaneous Test Crossmatch Allied health notes reviewed: RT (not tolerating weaning. Has been on PS 18/5, desaturations if PS is weaned)
[2017-02-01] MEDS ORDERED: ATIVAN IV ONE (14:00)
[2017-02-01] MEDS ORDERED: ALBURX 25% (ALBUMIN) IV ONE ×2 (14:23→15:00)
[2017-02-01] MEDS ORDERED: LACTATED RINGERS 250 ML IV ONE (15:11)
--- NOTE | 2017-02-01 15:13 | Progress Note ---
Assessment and Plan Assessment and plan: -- Acute hypoxic respiratory failure, s/p tracheostomy vent dependent -- Massive stroke with mass effect, Continue supportive care -- Multiple episodes of sepsis with septic shock during her hospitalization s/p aspiration pneumonia/peritonitis from gastric perforation/UTI/candidemia/ decubitus ulcer s/p sacral decubitus debridement, Right pleural effusion - scheduled for chest ultrasound for possible thoracentesis Currently on meropenem with stop date 02/04 --Pleural effusion ; possible thoracentesis by IR to improve respiratory status -- Acute renal failure/ ATN, improved significantly, creatinine near normal limits -- Paroxysmal atrial fibrillation with RVR, failed cardioversion Rate control , not a candidate for anticoagulation -- Diabetes, Accu-Cheks and SSI -- Anemia, Multifactorial, status post multiple PRBC transfusions -- Thrombocytopenia/secondary to sepsis -- Electrolyte abnormalities, correct as needed -- Severe protein calorie malnutrition, TPN -- Encephalopathy, Toxic metabolic initially, underlying conditions treated -- full code, poor prognosis Family aware of patient's condition and poor prognosis History Interval history: Patient remains unresponsive, status post trach on vent Clinically no change Vital signs reviewed Hospitalist Physical - Constitutional Vitals: Temp Pulse Resp BP Pulse Ox 98.6 F 95 H 28 H 85/45 97 02/01/17 12:46 02/01/17 14:13 02/01/17 14:13 02/01/17 14:11 02/01/17 12:46 General appearance: Present: no acute distress, well-nourished, obese, other ( unresponsive) - EENT Eyes: Present: PERRL - Neck Neck: Present: supple, other (tracheostomy) - Respiratory Respiratory effort: normal Respiratory: bilateral: diminished, rhonchi, negative: rales, wheezing - Cardiovascular Rhythm: regular Heart Sounds: Present: S1 & S2 - Extremities Extremities: abnormal (contracted) Extremity abnormal: edema - Abdominal General gastrointestinal: soft, non-tender, non-distended, normal bowel sounds, other (PEG tube in place) - Integumentary Integumentary: Present: clear, warm - Psychiatric Psychiatric: other (unresponsive) - Neurologic Neurologic: other (unresponsive) Results - Labs CBC & Chem 7: 01/28/17 04:00 02/01/17 09:24 Labs: Laboratory Last Values WBC 14.4 K/mm3 (4.5-11.0) H 01/28/17 04:00 RBC 2.82 M/mm3 (3.65-5.03) L 01/28/17 04:00 Hgb 7.4 gm/dl (10.1-14.3) L 01/28/17 04:00 Hct 23.5 % (30.3-42.9) L 01/28/17 04:00 MCV 83 fl (79-97) 01/28/17 04:00 MCH 26 pg (28-32) L 01/28/17 04:00 MCHC 31 % (30-34) 01/28/17 04:00 RDW 17.6 % (13.2-15.2) H 01/28/17 04:00 Plt Count 306 K/mm3 (140-440) 01/28/17 04:00 Lymph % (Auto) 10.2 % (13.4-35.0) L 01/28/17 04:00 [place] % (Auto) 11.0 % (0.0-7.3) H 01/28/17 04:00 Eos % (Auto) 0.4 % (0.0-4.3) 01/28/17 04:00 Baso % (Auto) 0.4 % (0.0-1.8) 01/28/17 04:00 Lymph # 1.5 K/mm3 (1.2-5.4) 01/28/17 04:00 [place] # 1.6 K/mm3 (0.0-0.8) H 01/28/17 04:00 Eos # 0.1 K/mm3 (0.0-0.4) 01/28/17 04:00 Baso # 0.1 K/mm3 (0.0-0.1) 01/28/17 04:00 Add Manual Diff Complete 12/19/16 05:02 Total Counted 100 12/19/16 05:02 Seg Neutrophils % 78.0 % (40.0-70.0) H 01/28/17 04:00 Seg Neuts % (Manual) 64.0 % (40.0-70.0) 12/19/16 05:02 Band Neutrophils % 15.0 % 12/19/16 05:02 Lymphocytes % (Manual) 13.0 % (13.4-35.0) L 12/19/16 05:02 Reactive Lymphs % (Man) 0 % 12/19/16 05:02 Monocytes % (Manual) 7.0 % (0.0-7.3) 12/19/16 05:02 Eosinophils % (Manual) 0 % (0.0-4.3) 12/19/16 05:02 Basophils % (Manual) 1.0 % (0.0-1.8) 12/19/16 05:02 Metamyelocytes % 0 % 12/19/16 05:02 Myelocytes % 0 % 12/19/16 05:02 Promyelocytes % 0 % 12/19/16 05:02 Blast Cells % 0 % 12/19/16 05:02 Nucleated RBC % 1.0 % (0.0-0.9) H 12/19/16 05:02 Seg Neutrophils # 11.3 K/mm3 (1.8-7.7) H 01/28/17 04:00 Seg Neutrophils # Man 12.9 K/mm3 (1.8-7.7) H 12/19/16 05:02 Band Neutrophils # 3.0 K/mm3 12/19/16 05:02 Lymphocytes # (Manual) 2.6 K/mm3 (1.2-5.4) 12/19/16 05:02 Abs React Lymphs (Man) 0.0 K/mm3 12/19/16 05:02 Monocytes # (Manual) 1.4 K/mm3 (0.0-0.8) H 12/19/16 05:02 Eosinophils # (Manual) 0.0 K/mm3 (0.0-0.4) 12/19/16 05:02 Basophils # (Manual) 0.2 K/mm3 (0.0-0.1) H 12/19/16 05:02 Metamyelocytes # 0.0 K/mm3 12/19/16 05:02 Myelocytes # 0.0 K/mm3 12/19/16 05:02 Promyelocytes # 0.0 K/mm3 12/19/16 05:02 Blast Cells # 0.0 K/mm3 12/19/16 05:02 Pathologist Review 09/13/16 04:00 WBC Morphology Not Reportable 12/19/16 05:02 Hypersegmented Neuts Not Reportable 12/19/16 05:02 Hyposegmented Neuts Not Reportable 12/19/16 05:02 Hypogranular Neuts Not Reportable 12/19/16 05:02 Smudge Cells Not Reportable 12/19/16 05:02 Toxic Granulation Not Reportable 12/19/16 05:02 Toxic Vacuolation Not Reportable 12/19/16 05:02 Dohle Bodies Not Reportable 12/19/16 05:02 Pelger-Huet Anomaly Not Reportable 12/19/16 05:02 Jasmina Rods Not Reportable 12/19/16 05:02 Platelet Estimate Consistent w auto 12/19/16 05:02 Clumped Platelets Not Reportable 12/19/16 05:02 Plt Clumps, EDTA Not Reportable 12/19/16 05:02 Large Platelets Not Reportable 12/19/16 05:02 Giant Platelets Not Reportable 12/19/16 05:02 Platelet Satelliting Not Reportable 12/19/16 05:02 Plt Morphology Comment Not Reportable 12/19/16 05:02 RBC Morphology Not Reportable 12/19/16 05:02 Dimorphic RBCs Not Reportable 12/19/16 05:02 Polychromasia Not Reportable 12/19/16 05:02 Hypochromasia Not Reportable 12/19/16 05:02 Poikilocytosis Not Reportable 12/19/16 05:02 Anisocytosis Not Reportable 12/19/16 05:02 Microcytosis Not Reportable 12/19/16 05:02 Macrocytosis Not Reportable 12/19/16 05:02 Spherocytes Not Reportable 12/19/16 05:02 Pappenheimer Bodies Not Reportable 12/19/16 05:02 Sickle Cells Not Reportable 12/19/16 05:02 Target Cells Few 12/19/16 05:02 Tear Drop Cells Not Reportable 12/19/16 05:02 Ovalocytes Not Reportable 12/19/16 05:02 Stomatocytes Rare 12/03/16 04:00 Helmet Cells Not Reportable 12/19/16 05:02 [place] Bodies Not Reportable 12/19/16 05:02 [place] Rings Not Reportable 12/19/16 05:02 [place] Cells Not Reportable 12/19/16 05:02 Bite Cells Not Reportable 12/19/16 05:02 Crenated Cell Not Reportable 12/19/16 05:02 Elliptocytes Not Reportable 12/19/16 05:02 Acanthocytes (Spur) Not Reportable 12/19/16 05:02 Rouleaux Not Reportable 12/19/16 05:02 Hemoglobin C Crystals Not Reportable 12/19/16 05:02 Schistocytes Not Reportable 12/19/16 05:02 Malaria parasites Not Reportable 12/19/16 05:02 ESR > 140.0 mm/Hr (0-20) 09/08/16 11:48 Jun Bodies Not Reportable 12/19/16 05:02 Hem Pathologist Commnt No 12/19/16 05:02 PT 15.4 Sec. (12.2-14.9) H 01/13/17 15:50 INR 1.16 (0.87-1.13) H 01/13/17 15:50 APTT 33.0 Sec. (24.2-36.6) 10/09/16 03:45 Thrombin Time 16.8 Sec. (15.1-19.6) 09/03/16 00:10 Fibrinogen 750 mg/dl (211-480) H 09/08/16 11:48 Lupus Anticoagulant see below 09/12/16 09:59 LA PTT Baseline See scanned report 09/12/16 09:59 dRVVT Confirm Interp Positive (Negative) H 09/12/16 09:59 dRVVT Screen 50:50 See scanned report 09/12/16 09:59 dRVVT Mix Interpret See scanned report 09/12/16 09:59 Protein C Antigen 122 % (70-140) 09/08/16 15:35 Free Protein S 97 % normal (50-147) 09/08/16 15:35 Total Protein S 109 % (70-140) 09/08/16 15:35 Antithrombin III Ag 100 % (80-120) 09/08/16 15:35 Heparin Anti-Xa, Unfract Negative (Negative) 09/29/16 13:35 Factor V Activity 182 % (65-150) H 09/08/16 15:35 POC ABG pH 7.436 (7.35-7.45) 01/20/17 12:17 ABG pH 7.450 pH Units (7.350-7.450) 12/05/16 Unknown POC ABG pCO2 35.3 (35-45) 01/20/17 12:17 ABG pCO2 29.6 mm Hg 12/05/16 Unknown POC ABG pO2 70 (80-105) L 01/20/17 12: ABG pO2 75.2 mm Hg (80.0-90.0) L 12/05/16 Unknown POC ABG HCO3 23.8 01/20/17 12: ABG HCO3 20.1 mmol/L (20.0-26.0) 12/05/16 Unknown POC ABG Total CO2 25 01/20/17 12:17 POC ABG O2 Sat 94 01/20/17 12: ABG O2 Saturation 96.8 % (95.0-99.0) 12/05/16 Unknown ABG O2 Content 9.9 (0.0-44) 12/05/16 Unknown POC ABG Base Excess 0 01/20/17 12: ABG Base Excess -3.4 mmol/L (-2.0-3.0) L 12/05/16 Unknown ABG Hemoglobin 7.4 gm/dl (12.0-16.0) L 12/05/16 Unknown ABG Carboxyhemoglobin 1.8 % (0.0-5.0) 12/05/16 Unknown ABG Methemoglobin 0.6 % (0.0-1.5) 12/05/16 Unknown Oxyhemoglobin 94.5 % (95.0-99.0) L 12/05/16 Unknown FiO2 30 % 01/20/17 12:17 Sodium 138 mmol/L (137-145) 02/01/17 09:24 Potassium 4.3 mmol/L (3.6-5.0) 02/01/17 09:24 Chloride 101.9 mmol/L (98-107) 02/01/17 09:24 Carbon Dioxide 22 mmol/L (22-30) 02/01/17 09:24 Anion Gap 18 mmol/L 02/01/17 09:24 BUN 102 mg/dL (7-17) H 02/01/17 09:24 Creatinine 1.9 mg/dL (0.7-1.2) H 02/01/17 09:24 Estimated GFR 34 ml/min 02/01/17 09:24 BUN/Creatinine Ratio 54 % 02/01/17 09:24 Glucose 120 mg/dL (65-100) H 02/01/17 09:24 POC Glucose 122 (70-105) H 02/01/17 05:42 Osmolality 351 Mosm/kg 09/16/16 11:47 Lactic Acid 2.30 mmol/L (0.7-2.0) H* 01/09/17 08:22 Calcium 10.2 mg/dL (8.4-10.2) 02/01/17 09:24 Phosphorus 3.80 mg/dL (2.5-4.5) 02/01/17 09:24 Magnesium 2.60 mg/dL (1.7-2.3) H 02/01/17 09:24 Total Bilirubin 0.50 mg/dL (0.1-1.2) 01/28/17 04:00 Direct Bilirubin 0.2 mg/dL (0-0.2) 01/28/17 04:00 Indirect Bilirubin 0.3 mg/dL 01/28/17 04:00 AST 14 units/L (5-40) 01/28/17 04:00 ALT 9 units/L (7-56) 01/28/17 04:00 Alkaline Phosphatase 113 units/L (35-129) 01/28/17 04:00 Ammonia 27.0 umol/L (25-60) 09/07/16 08:37 Lactate Dehydrogenase 170 units/L (91-180) 01/13/17 15:50 Total Creatine Kinase 121 units/L (30-135) 09/29/16 20:12 CK-MB (CK-2) < 1.0 ng/mL (0.0-4.0) 09/29/16 20:12 CK-MB (CK-2) Rel Index 0.8 (0-4) 09/29/16 20:12 Troponin T 0.204 ng/mL (0.00-0.029) H* 09/29/16 20:12 C-Reactive Protein 8.10 mg/dL (0.00-1.30) H 01/31/17 11:12 Total Protein 6.3 g/dL (6.3-8.2) 01/28/17 04:00 Albumin 1.4 g/dL (3.9-5) L 01/28/17 04:00 Albumin/Globulin Ratio 0.3 % 01/28/17 04:00 Prealbumin 0.110 g/L (0.200-0.400) L 12/29/16 05:15 Triglycerides 137 mg/dL (2-149) 09/29/16 20:12 Cholesterol 31 mg/dL (50-199) L 09/29/16 20:12 LDL Cholesterol Direct 4 mg/dL (50-130) L 09/29/16 20:12 HDL Cholesterol 3 mg/dL (40-59) L 09/29/16 20:12 Cholesterol/HDL Ratio 10.33 % 09/29/16 20:12 Angiotensin Convert Enz See scanned report 09/08/16 11:48 Renin 0.99 ng/mL/h (0.25-5.82) 10/07/16 10:56 Aldosterone <1 ng/dL () 10/07/16 10:56 Aldosterone/Renin Dir see below 10/07/16 10:56 Serotonin Release Assay See scanned report 09/29/16 13:35 TSH 1.010 mlU/mL (0.270-4.200) 09/07/16 08:37 HCG, Qual Negative (Negative) 09/03/16 00:10 PTH Intact 6.76 pg/mL (15-65) L 01/31/17 17:50 Urine Color Yellow (Yellow) 11/05/16 13:09 Urine Turbidity Clear (Clear) 11/05/16 13:09 Urine pH 9.0 (5.0-7.0) H 11/05/16 13:09 Ur Specific [place] 1.011 (1.003-1.030) 11/05/16 13:09 Urine Protein 100 mg/dl mg/dL (Negative) 11/05/16 13:09 Urine Glucose (UA) Neg mg/dL (Negative) 11/05/16 13:09 Urine Ketones Neg mg/dL (Negative) 11/05/16 13:09 Urine Blood Neg (Negative) 11/05/16 13:09 Urine Nitrite Neg (Negative) 11/05/16 13:09 Urine Bilirubin Neg (Negative) 11/05/16 13:09 Urine Urobilinogen < 2.0 mg/dL (<2.0) 11/05/16 13:09 Ur Leukocyte Esterase Neg (Negative) 11/05/16 13:09 Urine WBC (Auto) 4.0 /HPF (0.0-6.0) 11/05/16 13:09 Urine RBC (Auto) 1.0 /HPF (0.0-6.0) 11/05/16 13:09 U Epithel Cells (Auto) 1.0 /HPF (0-13.0) 10/07/16 18:30 Urine Bacteria (Auto) 4+ /HPF (Negative) 11/05/16 13:09 Urine WBC Clumps 2+ /HPF 09/07/16 02:47 Hyaline Casts 4 /LPF 09/07/16 02:47 Urine Mucus Few /HPF 10/07/16 18:30 Urine Yeast (Budding) 3+ /HPF 10/07/16 18:30 Urine Eosinophils None seen (None Seen) 09/07/16 16:00 Urine Total Volume 950 11/12/16 10:18 Urine Creatinine 19.7 mg/dL (0.1-20.0) 11/12/16 10:18 Height (in) 65.0 inches 11/12/16 10:18 Weight (lb) 181.0 lbs 11/12/16 10:18 Creatinine Clearance 5 11/12/16 10:18 Urine Sodium 36 mEq/L 09/16/16 19:19 Urine Total Protein 16 mg/dL (5-11.8) H 09/16/16 19:19 Fluid Type Pleural 01/13/17 12:10 Fluid Color Yellow 01/13/17 12:10 Fluid Appearance Hazy 01/13/17 12:10 Fluid WBC 182 /mm3 01/13/17 12:10 Fluid RBC 41 /mm3 01/13/17 12:10 Fluid Seg Neutrophils 85.0 % 01/13/17 12:10 Fluid Lymphocytes 8.0 % 01/13/17 12:10 Fluid Reactive Lymphs 0 % 01/13/17 12:10 Fluid Monocytes 6.0 % 01/13/17 12:10 Fluid Eosinophils 1.0 % 01/13/17 12:10 Fluid Basophils 0 % 01/13/17 12:10 Fluid Total Protein 3.0 (15.0-45.0) L 01/13/17 12:10 Fluid LDH 1322 01/13/17 12:10 Fluid Comment Diff performed 01/13/17 12:10 Vancomycin Trough 2.3 ug/mL (5.0-20.0) L 09/21/16 13:00 Random Vancomycin 16.5 ug/mL (0-40.0) 11/28/16 09:45 Urine Opiates Screen Presumptive negative 09/03/16 15:11 Urine Methadone Screen Presumptive positive 09/03/16 15:11 Ur Barbiturates Screen Presumptive positive 09/03/16 15:11 Ur Phencyclidine Scrn Presumptive negative 09/03/16 15:11 Ur Amphetamines Screen Presumptive negative 09/03/16 15:11 U Benzodiazepines Scrn Presumptive negative 09/03/16 15:11 Urine Cocaine Screen Presumptive negative 09/03/16 15:11 U Marijuana (THC) Screen Presumptive positive 09/03/16 15:11 Drugs of Abuse Note Disclamer 09/03/16 15:11 Rheumatoid Factor 24 IU/ml (0-13) H 09/08/16 11:48 SAHIL Screen Negative (Negative) 09/07/16 09:20 Proteinase 3 (PR3) Ab <1.0 AI (<1.0) 09/07/16 09:20 Myeloperoxidase Ab <1.0 AI (<1.0) 09/07/16 09:20 Sjogren's Antibody <1.0 AI (<1.0) 09/08/16 15:35 Scl-70 Scleroderma Ab <1.0 AI (<1.0) 09/08/16 15:35 Centromere B Antibody <1.0 AI (<1.0) 09/08/16 12:02 Heparin-induced Plt Ab Negative (Negative) 09/29/16 13:35 UF Heparin High Dose 11 % Release 09/29/16 13:35 SUDHIR UFH Low Dose 0.1 6 % Release 09/29/16 13:35 SUDHIR UFH Low Dose 0.5 8 % Release 09/29/16 13:35 Cardiolipid IgG Ab <14 GPL (<=14) 09/12/16 09:59 Cardiolipid IgA Ab <11 APL (<=11) 09/12/16 09:59 Cardiolipid IgM Ab <12 MPL (<=12) 09/12/16 09:59 Complement C3 148 mg/dL (90-180) 09/07/16 09:20 Complement C4 58 mg/dL (16-47) H 09/07/16 09:20 RPR Nonreactive (Nonreactive) 09/08/16 11:48 Hepatitis A IgM Ab Non-reactive (NonReactive) 09/24/16 14:40 Hep Bs Antigen Non-reactive (Negative) 09/24/16 14:40 Hep B Core IgM Ab Non-reactive (NonReactive) 09/24/16 14:40 Hepatitis C Antibody Non-reactive (NonReactive) 09/24/16 14:40 HIV 1&2 Antibody Rapid Non react (Non React) 09/08/16 11:48 HIV P24 Antigen Non react (Non React) 09/08/16 11:48 Miscellaneous Test Flexitest 1 H 01/09/17 18:45 Blood Type A POSITIVE 01/25/17 11:15 Antibody Screen Negative 01/25/17 11:15 DELORIS Antibody Screen Negative 11/24/16 11:20 Crossmatch See Detail 01/25/17 11:15
[2017-02-01] MEDS: LACTATED RINGERS 1,000 ML IV SCH (15:40)
[2017-02-01] MEDS: LEVOPHED DRIP 4 MG/NS 250 ML 4 MG/250 ML BAG IV SCH (16:25)
[2017-02-01] MEDS ORDERED: TPN ADULT IV SCH (20:00)
[2017-02-01] MEDS: NACL 0.9% IV SCH (20:00)
[2017-02-01] MEDS: TAZICEF IV SCH (20:00)
[2017-02-01] MEDS ORDERED: INTRALIPID 20% 250 ML IV SCH (20:00)
[2017-02-02] MEDS: DUONEB *Not for PRN Use IH SCH ×4 (03:15→19:21)
[2017-02-02] MEDS: LOPRESSOR PO SCH ×2 (07:15→12:28)
[2017-02-02] MEDS: HumuLIN R SUB-Q SCH ×3 (07:17→18:13)
--- NOTE | 2017-02-02 07:38 | Progress Note ---
Assessment and Plan Assessment and plan: -- Massive stroke with mass effect, Continue supportive care -- Acute hypoxic respiratory failure, s/p tracheostomy vent dependent -- Multiple episodes of sepsis with septic shock during her hospitalization s/p aspiration pneumonia/peritonitis from gastric perforation/UTI/candidemia/ decubitus ulcer s/p sacral decubitus debridement, Right pleural effusion - scheduled for chest ultrasound for possible thoracentesis Currently on meropenem with stop date 02/04 --Pleural effusion ; possible thoracentesis by IR to improve respiratory status -- Acute renal failure/ ATN, improved significantly, creatinine near normal limits -- Paroxysmal atrial fibrillation with RVR, failed cardioversion Rate control , not a candidate for anticoagulation -- Diabetes, Accu-Cheks and SSI -- Anemia, Multifactorial, status post multiple PRBC transfusions -- Thrombocytopenia/secondary to sepsis -- Electrolyte abnormalities, correct as needed -- Severe protein calorie malnutrition, TPN -- Encephalopathy, Toxic metabolic initially, underlying conditions treated -- full code, poor prognosis Family aware of patient's condition and poor prognosis History Interval history: Patient seen and examined medical records reviewed Clinically no change, but remains vent dependent Vital signs reviewed Hospitalist Physical - Constitutional Vitals: Temp Pulse Resp BP Pulse Ox 97.2 F L 87 22 110/91 99 02/02/17 03:09 02/02/17 03:17 02/02/17 03:16 02/02/17 03:17 02/02/17 03:17 General appearance: Present: no acute distress, well-nourished, obese, other ( unresponsive) - EENT Eyes: Present: PERRL - Neck Neck: Present: supple. Absent: enlarged thyroid - Respiratory Respiratory effort: normal Respiratory: bilateral: diminished, rhonchi, negative: rales, wheezing - Cardiovascular Rhythm: regular Heart Sounds: Present: S1 & S2 - Extremities Extremities: no ischemia, abnormal (contracted) Extremity abnormal: edema Peripheral Pulses: within normal limits - Abdominal General gastrointestinal: soft, non-tender, non-distended, normal bowel sounds - Integumentary Integumentary: Present: clear, warm - Psychiatric Psychiatric: other (unresponsive) - Neurologic Neurologic: other (and responsive) Results - Labs CBC & Chem 7: 02/02/17 10:16 02/02/17 07:40 Labs: Laboratory Last Values WBC 14.4 K/mm3 (4.5-11.0) H 12/09/17 04:00 RBC 2.82 M/mm3 (3.65-5.03) L 01/28/17 04:00 Hgb 7.4 gm/dl (10.1-14.3) L 01/28/17 04:00 Hct 23.5 % (30.3-42.9) L 01/28/17 04:00 MCV 83 fl (79-97) 01/28/17 04:00 MCH 26 pg (28-32) L 01/28/17 04:00 MCHC 31 % (30-34) 01/28/17 04:00 RDW 17.6 % (13.2-15.2) H 01/28/17 04:00 Plt Count 306 K/mm3 (140-440) 01/28/17 04:00 Lymph % (Auto) 10.2 % (13.4-35.0) L 01/28/17 04:00 Hod[place]eman % (Auto) 11.0 % (0.0-7.3) H 01/28/17 04:00 Eos % (Auto) 0.4 % (0.0-4.3) 01/28/17 04:00 Baso % (Auto) 0.4 % (0.0-1.8) 01/28/17 04:00 Lymph # 1.5 K/mm3 (1.2-5.4) 01/28/17 04:00 Hodgeman # 1.6 K/mm3 (0.0-0.8) H 01/28/17 04:00 Eos # 0.1 K/mm3 (0.0-0.4) 01/28/17 04:00 Baso # 0.1 K/mm3 (0.0-0.1) 01/28/17 04:00 Add Manual Diff Complete 12/19/16 05:02 Total Counted 100 12/19/16 05:02 Seg Neutrophils % 78.0 % (40.0-70.0) H 01/28/17 04:00 Seg Neuts % (Manual) 64.0 % (40.0-70.0) 12/19/16 05:02 Band Neutrophils % 15.0 % 12/19/16 05:02 Lymphocytes % (Manual) 13.0 % (13.4-35.0) L 12/19/16 05:02 Reactive Lymphs % (Man) 0 % 12/19/16 05:02 Monocytes % (Manual) 7.0 % (0.0-7.3) 12/19/16 05:02 Eosinophils % (Manual) 0 % (0.0-4.3) 12/19/16 05:02 Basophils % (Manual) 1.0 % (0.0-1.8) 12/19/16 05:02 Metamyelocytes % 0 % 12/19/16 05:02 Myelocytes % 0 % 12/19/16 05:02 Promyelocytes % 0 % 12/19/16 05:02 Blast Cells % 0 % 12/19/16 05:02 Nucleated RBC % 1.0 % (0.0-0.9) H 12/19/16 05:02 Seg Neutrophils # 11.3 K/mm3 (1.8-7.7) H 01/28/17 04:00 Seg Neutrophils # Man 12.9 K/mm3 (1.8-7.7) H 12/19/16 05:02 Band Neutrophils # 3.0 K/mm3 12/19/16 05:02 Lymphocytes # (Manual) 2.6 K/mm3 (1.2-5.4) 12/19/16 05:02 Abs React Lymphs (Man) 0.0 K/mm3 12/19/16 05:02 Monocytes # (Manual) 1.4 K/mm3 (0.0-0.8) H 12/19/16 05:02 Eosinophils # (Manual) 0.0 K/mm3 (0.0-0.4) 12/19/16 05:02 Basophils # (Manual) 0.2 K/mm3 (0.0-0.1) H 12/19/16 05:02 Metamyelocytes # 0.0 K/mm3 12/19/16 05:02 Myelocytes # 0.0 K/mm3 12/19/16 05:02 Promyelocytes # 0.0 K/mm3 12/19/16 05:02 Blast Cells # 0.0 K/mm3 12/19/16 05:02 Pathologist Review 09/13/16 04:00 WBC Morphology Not Reportable 12/19/16 05:02 Hypersegmented Neuts Not Reportable 12/19/16 05:02 Hyposegmented Neuts Not Reportable 12/19/16 05:02 Hypogranular Neuts Not Reportable 12/19/16 05:02 Smudge Cells Not Reportable 12/19/16 05:02 Toxic Granulation Not Reportable 12/19/16 05:02 Toxic Vacuolation Not Reportable 12/19/16 05:02 Dohle Bodies Not Reportable 12/19/16 05:02 Pelger-Huet Anomaly Not Reportable 12/19/16 05:02 Jasmina Rods Not Reportable 12/19/16 05:02 Platelet Estimate Consistent w auto 12/19/16 05:02 Clumped Platelets Not Reportable 12/19/16 05:02 Plt Clumps, EDTA Not Reportable 12/19/16 05:02 Large Platelets Not Reportable 12/19/16 05:02 Giant Platelets Not Reportable 12/19/16 05:02 Platelet Satelliting Not Reportable 12/19/16 05:02 Plt Morphology Comment Not Reportable 12/19/16 05:02 RBC Morphology Not Reportable 12/19/16 05:02 Dimorphic RBCs Not Reportable 12/19/16 05:02 Polychromasia Not Reportable 12/19/16 05:02 Hypochromasia Not Reportable 12/19/16 05:02 Poikilocytosis Not Reportable 12/19/16 05:02 Anisocytosis Not Reportable 12/19/16 05:02 Microcytosis Not Reportable 12/19/16 05:02 Macrocytosis Not Reportable 12/19/16 05:02 Spherocytes Not Reportable 12/19/16 05:02 Pappenheimer Bodies Not Reportable 12/19/16 05:02 Sickle Cells Not Reportable 12/19/16 05:02 Target Cells Few 12/19/16 05:02 Tear Drop Cells Not Reportable 12/19/16 05:02 Ovalocytes Not Reportable 12/19/16 05:02 Stomatocytes Rare 12/03/16 04:00 Helmet Cells Not Reportable 12/19/16 05:02 [place] Bodies Not Reportable 12/19/16 05:02 [place] Rings Not Reportable 12/19/16 05:02 Chuck Cells Not Reportable 12/19/16 05:02 Bite Cells Not Reportable 12/19/16 05:02 Crenated Cell Not Reportable 12/19/16 05:02 Elliptocytes Not Reportable 12/19/16 05:02 Acanthocytes (Spur) Not Reportable 12/19/16 05:02 Rouleaux Not Reportable 12/19/16 05:02 Hemoglobin C Crystals Not Reportable 12/19/16 05:02 Schistocytes Not Reportable 12/19/16 05:02 Malaria parasites Not Reportable 12/19/16 05:02 ESR > 140.0 mm/Hr (0-20) 09/08/16 11:48 Jun Bodies Not Reportable 12/19/16 05:02 Hem Pathologist Commnt No 12/19/16 05:02 PT 15.4 Sec. (12.2-14.9) H 01/13/17 15:50 INR 1.16 (0.87-1.13) H 01/13/17 15:50 APTT 33.0 Sec. (24.2-36.6) 10/09/16 03:45 Thrombin Time 16.8 Sec. (15.1-19.6) 09/03/16 00:10 Fibrinogen 750 mg/dl (211-480) H 09/08/16 11:48 Lupus Anticoagulant see below 09/12/16 09:59 LA PTT Baseline See scanned report 09/12/16 09:59 dRVVT Confirm Interp Positive (Negative) H 09/12/16 09:59 dRVVT Screen 50:50 See scanned report 09/12/16 09:59 dRVVT Mix Interpret See scanned report 09/12/16 09:59 Protein C Antigen 122 % (70-140) 09/08/16 15:35 Free Protein S 97 % normal (50-147) 09/08/16 15:35 Total Protein S 109 % (70-140) 09/08/16 15:35 Antithrombin III Ag 100 % (80-120) 09/08/16 15:35 Heparin Anti-Xa, Unfract Negative (Negative) 09/29/16 13:35 Factor V Activity 182 % (65-150) H 09/08/16 15:35 POC ABG pH 7.436 (7.35-7.45) 01/20/17 12:17 ABG pH 7.450 pH Units (7.350-7.450) 12/05/16 Unknown POC ABG pCO2 35.3 (35-45) 01/20/17 12:17 ABG pCO2 29.6 mm Hg 12/05/16 Unknown POC ABG pO2 70 (80-105) L 01/20/17 12: ABG pO2 75.2 mm Hg (80.0-90.0) L 12/05/16 Unknown POC ABG HCO3 23.8 01/20/17 12: ABG HCO3 20.1 mmol/L (20.0-26.0) 12/05/16 Unknown POC ABG Total CO2 25 01/20/17 12:17 POC ABG O2 Sat 94 01/20/17 12:17 ABG O2 Saturation 96.8 % (95.0-99.0) 12/05/16 Unknown ABG O2 Content 9.9 (0.0-44) 12/05/16 Unknown POC ABG Base Excess 0 01/20/17 12: ABG Base Excess -3.4 mmol/L (-2.0-3.0) L 12/05/16 Unknown ABG Hemoglobin 7.4 gm/dl (12.0-16.0) L 12/05/16 Unknown ABG Carboxyhemoglobin 1.8 % (0.0-5.0) 12/05/16 Unknown ABG Methemoglobin 0.6 % (0.0-1.5) 12/05/16 Unknown Oxyhemoglobin 94.5 % (95.0-99.0) L 12/05/16 Unknown FiO2 30 % 01/20/17 12:17 Sodium 138 mmol/L (137-145) 02/01/17 09:24 Potassium 4.3 mmol/L (3.6-5.0) 02/01/17 09:24 Chloride 101.9 mmol/L (98-107) 02/01/17 09:24 Carbon Dioxide 22 mmol/L (22-30) 02/01/17 09:24 Anion Gap 18 mmol/L 02/01/17 09:24 BUN 102 mg/dL (7-17) H 02/01/17 09:24 Creatinine 1.9 mg/dL (0.7-1.2) H 02/01/17 09:24 Estimated GFR 34 ml/min 02/01/17 09:24 BUN/Creatinine Ratio 54 % 02/01/17 09:24 Glucose 120 mg/dL (65-100) H 02/01/17 09:24 POC Glucose 95 (70-105) 02/02/17 05:10 Osmolality 351 Mosm/kg 09/16/16 11:47 Lactic Acid 2.30 mmol/L (0.7-2.0) H* 01/09/17 08:22 Calcium 10.2 mg/dL (8.4-10.2) 02/01/17 09:24 Phosphorus 3.80 mg/dL (2.5-4.5) 02/01/17 09:24 Magnesium 2.60 mg/dL (1.7-2.3) H 02/01/17 09:24 Total Bilirubin 0.50 mg/dL (0.1-1.2) 01/28/17 04:00 Direct Bilirubin 0.2 mg/dL (0-0.2) 01/28/17 04:00 Indirect Bilirubin 0.3 mg/dL 01/28/17 04:00 AST 14 units/L (5-40) 01/28/17 04:00 ALT 9 units/L (7-56) 01/28/17 04:00 Alkaline Phosphatase 113 units/L (35-129) 01/28/17 04:00 Ammonia 27.0 umol/L (25-60) 09/07/16 08:37 Lactate Dehydrogenase 170 units/L (91-180) 01/13/17 15:50 Total Creatine Kinase 121 units/L (30-135) 09/29/16 20:12 CK-MB (CK-2) < 1.0 ng/mL (0.0-4.0) 09/29/16 20:12 CK-MB (CK-2) Rel Index 0.8 (0-4) 09/29/16 20:12 Troponin T 0.204 ng/mL (0.00-0.029) H* 09/29/16 20:12 C-Reactive Protein 8.10 mg/dL (0.00-1.30) H 01/31/17 11:12 Total Protein 6.3 g/dL (6.3-8.2) 01/28/17 04:00 Albumin 1.4 g/dL (3.9-5) L 01/28/17 04:00 Albumin/Globulin Ratio 0.3 % 01/28/17 04:00 Prealbumin 0.110 g/L (0.200-0.400) L 12/29/16 05:15 Triglycerides 137 mg/dL (2-149) 09/29/16 20:12 Cholesterol 31 mg/dL (50-199) L 09/29/16 20:12 LDL Cholesterol Direct 4 mg/dL (50-130) L 09/29/16 20:12 HDL Cholesterol 3 mg/dL (40-59) L 09/29/16 20:12 Cholesterol/HDL Ratio 10.33 % 09/29/16 20:12 Angiotensin Convert Enz See scanned report 09/08/16 11:48 Renin 0.99 ng/mL/h (0.25-5.82) 10/07/16 10:56 Aldosterone <1 ng/dL () 10/07/16 10:56 Aldosterone/Renin Dir see below 10/07/16 10:56 Serotonin Release Assay See scanned report 09/29/16 13:35 TSH 1.010 mlU/mL (0.270-4.200) 09/07/16 08:37 HCG, Qual Negative (Negative) 09/03/16 00:10 PTH Intact 6.76 pg/mL (15-65) L 01/31/17 17:50 Urine Color Yellow (Yellow) 11/05/16 13:09 Urine Turbidity Clear (Clear) 11/05/16 13:09 Urine pH 9.0 (5.0-7.0) H 11/05/16 13:09 Ur Specific [place] 1.011 (1.003-1.030) 11/05/16 13:09 Urine Protein 100 mg/dl mg/dL (Negative) 11/05/16 13:09 Urine Glucose (UA) Neg mg/dL (Negative) 11/05/16 13:09 Urine Ketones Neg mg/dL (Negative) 11/05/16 13:09 Urine Blood Neg (Negative) 11/05/16 13:09 Urine Nitrite Neg (Negative) 11/05/16 13:09 Urine Bilirubin Neg (Negative) 11/05/16 13:09 Urine Urobilinogen < 2.0 mg/dL (<2.0) 11/05/16 13:09 Ur Leukocyte Esterase Neg (Negative) 11/05/16 13:09 Urine WBC (Auto) 4.0 /HPF (0.0-6.0) 11/05/16 13:09 Urine RBC (Auto) 1.0 /HPF (0.0-6.0) 11/05/16 13:09 U Epithel Cells (Auto) 1.0 /HPF (0-13.0) 10/07/16 18:30 Urine Bacteria (Auto) 4+ /HPF (Negative) 11/05/16 13:09 Urine WBC Clumps 2+ /HPF 09/07/16 02:47 Hyaline Casts 4 /LPF 09/07/16 02:47 Urine Mucus Few /HPF 10/07/16 18:30 Urine Yeast (Budding) 3+ /HPF 10/07/16 18:30 Urine Eosinophils None seen (None Seen) 09/07/16 16:00 Urine Total Volume 950 11/12/16 10:18 Urine Creatinine 19.7 mg/dL (0.1-20.0) 11/12/16 10:18 Height (in) 65.0 inches 11/12/16 10:18 Weight (lb) 181.0 lbs 11/12/16 10:18 Creatinine Clearance 5 11/12/16 10:18 Urine Sodium 36 mEq/L 09/16/16 19:19 Urine Total Protein 16 mg/dL (5-11.8) H 09/16/16 19:19 Fluid Type Pleural 01/13/17 12:10 Fluid Color Yellow 01/13/17 12:10 Fluid Appearance Hazy 01/13/17 12:10 Fluid WBC 182 /mm3 01/13/17 12:10 Fluid RBC 41 /mm3 01/13/17 12:10 Fluid Seg Neutrophils 85.0 % 01/13/17 12:10 Fluid Lymphocytes 8.0 % 01/13/17 12:10 Fluid Reactive Lymphs 0 % 01/13/17 12:10 Fluid Monocytes 6.0 % 01/13/17 12:10 Fluid Eosinophils 1.0 % 01/13/17 12:10 Fluid Basophils 0 % 01/13/17 12:10 Fluid Total Protein 3.0 (15.0-45.0) L 01/13/17 12:10 Fluid LDH 1322 01/13/17 12:10 Fluid Comment Diff performed 01/13/17 12:10 Vancomycin Trough 2.3 ug/mL (5.0-20.0) L 09/21/16 13:00 Random Vancomycin 16.5 ug/mL (0-40.0) 11/28/16 09:45 Urine Opiates Screen Presumptive negative 09/03/16 15:11 Urine Methadone Screen Presumptive positive 09/03/16 15:11 Ur Barbiturates Screen Presumptive positive 09/03/16 15:11 Ur Phencyclidine Scrn Presumptive negative 09/03/16 15:11 Ur Amphetamines Screen Presumptive negative 09/03/16 15:11 U Benzodiazepines Scrn Presumptive negative 09/03/16 15:11 Urine Cocaine Screen Presumptive negative 09/03/16 15:11 U Marijuana (THC) Screen Presumptive positive 09/03/16 15:11 Drugs of Abuse Note Disclamer 09/03/16 15:11 Rheumatoid Factor 24 IU/ml (0-13) H 09/08/16 11:48 SAHIL Screen Negative (Negative) 09/07/16 09:20 Proteinase 3 (PR3) Ab <1.0 AI (<1.0) 09/07/16 09:20 Myeloperoxidase Ab <1.0 AI (<1.0) 09/07/16 09:20 Sjogren's Antibody <1.0 AI (<1.0) 09/08/16 15:35 Scl-70 Scleroderma Ab <1.0 AI (<1.0) 09/08/16 15:35 Centromere B Antibody <1.0 AI (<1.0) 09/08/16 12:02 Heparin-induced Plt Ab Negative (Negative) 09/29/16 13:35 UF Heparin High Dose 11 % Release 09/29/16 13:35 SUDHIR UFH Low Dose 0.1 6 % Release 09/29/16 13:35 SUDHIR UFH Low Dose 0.5 8 % Release 09/29/16 13:35 Cardiolipid IgG Ab <14 GPL (<=14) 09/12/16 09:59 Cardiolipid IgA Ab <11 APL (<=11) 09/12/16 09:59 Cardiolipid IgM Ab <12 MPL (<=12) 09/12/16 09:59 Complement C3 148 mg/dL (90-180) 09/07/16 09:20 Complement C4 58 mg/dL (16-47) H 09/07/16 09:20 RPR Nonreactive (Nonreactive) 09/08/16 11:48 Hepatitis A IgM Ab Non-reactive (NonReactive) 09/24/16 14:40 Hep Bs Antigen Non-reactive (Negative) 09/24/16 14:40 Hep B Core IgM Ab Non-reactive (NonReactive) 09/24/16 14:40 Hepatitis C Antibody Non-reactive (NonReactive) 09/24/16 14:40 HIV 1&2 Antibody Rapid Non react (Non React) 09/08/16 11:48 HIV P24 Antigen Non react (Non React) 09/08/16 11:48 Miscellaneous Test Flexitest 1 H 01/09/17 18:45 Blood Type A POSITIVE 01/25/17 11:15 Antibody Screen Negative 01/25/17 11:15 DELORIS Antibody Screen Negative 11/24/16 11:20 Crossmatch See Detail 01/25/17 11:15
[2017-02-02 08:20] LABS: Calcium 9.7 mg/dL (8.4-10.2)
[2017-02-02] MEDS: LEVOPHED DRIP 4 MG/NS 250 ML 4 MG/250 ML BAG IV SCH (08:30)
[2017-02-02] MEDS: REGLAN IV SCH ×3 (08:58→22:12)
--- NOTE | 2017-02-02 09:40 | Progress Note ---
Subjective Principal diagnosis: Acute resp failure on MVS; S/P Acute CVA; Acute Encephalopathy; JUANITA Interval history: Patient was seen today for follow-up on multiple renal-related issues Around 9: 45 in the morning Neurologically her status has been unchanged Patient is currently pending placement Lab results were reviewed Social history: Reviewed Medication: Reviewed Family history: Reviewed Allergies: Reviewed Physical examination General; no acute distress HEENT: Mild pallor no icterus oral mucosa moist Neck: Supple soft no jugular venous distention, cath site essentially unremarkable Chest: Bilateral clear to auscultation anteriorly posteriorly a few faint basilar crackles at the lung bases no wheezes Cardiovascular: S1-S2 heart no S3-S4 Abdomen: Soft nontender no voluntary guarding rigidity rebound no organomegaly no masses no suprapubic fullness no CVA tenderness Extremity: Minimal edema dry skin no tenderness in the Area Derm: Dry skin Assessment and plan acute kidney injury with underlying chronic kidney disease patient is currently dialysis dependent. she will continue to dialyze 3 times every week for now To continue to dialyze Monday and Monday as tolerated Monitor for any sign and symptoms of renal function recovery urine output has slightly improved Current dialysis access is a central venous catheter which has been working well according to dialysis nurse Patient will need periodic transfusion if her hemoglobin is under 7 Possibly avoid erythropoietin as much as possible due to CVA Phosphorus and PTH level satisfactory February 02 Continue with supportive care Respiratory failure, massive stroke, paroxysmal atrial fibrillation failed cardioversion Multiple other health issues overall prognosis guarded to poor pending placement Objective - Vital Signs Vital signs: Vital Signs - 12hr 02/01/17 02/01/17 02/01/17 22:00 23:00 23:03 Temperature Pulse Rate 91 H 94 H 95 H Pulse Rate [ Anterior Bilateral Throughout] Pulse Rate [ Apical] Pulse Rate [ From Monitor] Pulse Rate [ Left Dorsalis Pedis] Pulse Rate [ Left Radial] Pulse Rate [ Right Dorsalis Pedis] Pulse Rate [ Right Radial] Respiratory 30 H 26 H 26 H Rate Respiratory Rate [Anterior Bilateral Throughout] Blood Pressure 92/58 103/54 103/54 O2 Sat by Pulse 100 100 100 Oximetry 02/01/17 02/01/17 02/01/17 23:16 23:31 23:33 Temperature 98.3 F Pulse Rate 94 H 94 H Pulse Rate [ Anterior Bilateral Throughout] Pulse Rate [ Apical] Pulse Rate [ From Monitor] Pulse Rate [ Left Dorsalis Pedis] Pulse Rate [ Left Radial] Pulse Rate [ Right Dorsalis Pedis] Pulse Rate [ Right Radial] Respiratory Rate Respiratory Rate [Anterior Bilateral Throughout] Blood Pressure 103/54 112/61 O2 Sat by Pulse Oximetry 02/02/17 02/02/17 02/02/17 00:00 01:00 01:53 Temperature Pulse Rate 93 H 85 86 Pulse Rate [ Anterior Bilateral Throughout] Pulse Rate [ 97 H Apical] Pulse Rate [ 97 H From Monitor] Pulse Rate [ 97 H Left Dorsalis Pedis] Pulse Rate [ 97 H Left Radial] Pulse Rate [ 97 H Right Dorsalis Pedis] Pulse Rate [ 97 H Right Radial] Respiratory 14 16 Rate Respiratory Rate [Anterior Bilateral Throughout] Blood Pressure 112/56 101/47 108/59 O2 Sat by Pulse 100 100 100 Oximetry 02/02/17 02/02/17 02/02/17 02:00 03:00 03:09 Temperature 97.2 F L Pulse Rate 86 86 Pulse Rate [ Anterior Bilateral Throughout] Pulse Rate [ Apical] Pulse Rate [ From Monitor] Pulse Rate [ Left Dorsalis Pedis] Pulse Rate [ Left Radial] Pulse Rate [ Right Dorsalis Pedis] Pulse Rate [ Right Radial] Respiratory 22 16 Rate Respiratory Rate [Anterior Bilateral Throughout] Blood Pressure 108/59 116/59 O2 Sat by Pulse 100 100 Oximetry 02/02/17 02/02/17 02/02/17 03:16 03:17 04:00 Temperature Pulse Rate 87 89 Pulse Rate [ 89 Anterior Bilateral Throughout] Pulse Rate [ 95 H Apical] Pulse Rate [ 95 H From Monitor] Pulse Rate [ 95 H Left Dorsalis Pedis] Pulse Rate [ 95 H Left Radial] Pulse Rate [ 95 H Right Dorsalis Pedis] Pulse Rate [ 95 H Right Radial] Respiratory 14 Rate Respiratory 22 Rate [Anterior Bilateral Throughout] Blood Pressure 110/91 119/60 O2 Sat by Pulse 99 100 Oximetry 02/02/17 02/02/17 02/02/17 05:01 06:00 07:00 Temperature Pulse Rate 94 H 84 87 Pulse Rate [ Anterior Bilateral Throughout] Pulse Rate [ Apical] Pulse Rate [ From Monitor] Pulse Rate [ Left Dorsalis Pedis] Pulse Rate [ Left Radial] Pulse Rate [ Right Dorsalis Pedis] Pulse Rate [ Right Radial] Respiratory 30 H 20 18 Rate Respiratory Rate [Anterior Bilateral Throughout] Blood Pressure 121/64 112/56 97/52 O2 Sat by Pulse 100 100 100 Oximetry - Lab 01/28/17 04:00 02/02/17 07:40 Most recent lab results ABG pH 7.450 pH Units (7.350-7.450) 12/05/16 Unknown ABG pCO2 29.6 mm Hg 12/05/16 Unknown ABG pO2 75.2 mm Hg (80.0-90.0) L 12/05/16 Unknown ABG HCO3 20.1 mmol/L (20.0-26.0) 12/05/16 Unknown ABG O2 Saturation 96.8 % (95.0-99.0) 12/05/16 Unknown Calcium 9.7 mg/dL (8.4-10.2) 02/02/17 07:40 Phosphorus 2.50 mg/dL (2.5-4.5) D 02/02/17 07:40 Magnesium 2.00 mg/dL (1.7-2.3) 02/02/17 07:40 Urine Creatinine 19.7 mg/dL (0.1-20.0) 11/12/16 10:18 Urine Sodium 36 mEq/L 09/16/16 19:19 Urine Total Protein 16 mg/dL (5-11.8) H 09/16/16 19:19
[2017-02-02 10:43] LABS: Basophils # (Auto) 0.1 K/mm3 (0.0-0.1); Basophils % (Auto) 0.6 % (0.0-1.8); Eosinophils # (Auto) 0.2 K/mm3 (0.0-0.4); Eosinophils % (Auto) 1.3 % (0.0-4.3); Hematocrit 25.6 % (30.3-42.9); Hemoglobin 8.3 gm/dl (10.1-14.3); Lymphocytes # (Auto) 1.7 K/mm3 (1.2-5.4); Lymphocytes % (Auto) 13.9 % (13.4-35.0); Mean Corpuscular HGB Conc 32 % (30-34); Mean Corpuscular Hemoglobin 27 pg (28-32); Mean Corpuscular Volume 83 fl (79-97); Monocytes # (Auto) 0.7 K/mm3 (0.0-0.8); Monocytes % (Auto) 5.8 % (0.0-7.3); Platelet Count 336 K/mm3 (140-440); Red Blood Count 3.08 M/mm3 (3.65-5.03); Red Cell Distribution Width 18.2 % (13.2-15.2)
[2017-02-02] MEDS: HEPARIN SUB-Q SCH ×2 (11:03→22:12)
[2017-02-02] MEDS: PROTONIX FEEDTUBE SCH (11:03)
[2017-02-02] MEDS: ROBINUL PO SCH ×2 (12:13→22:11)
[2017-02-02] MEDS: LACTATED RINGERS 1,000 ML IV SCH (12:17)
[2017-02-02] MEDS: LOPRESSOR IV PRN (18:48)
[2017-02-02] MEDS ORDERED: TPN ADULT IV SCH (20:00)
[2017-02-03] MEDS: LACTATED RINGERS 1,000 ML IV SCH (00:55)
[2017-02-03] MEDS: DUONEB *Not for PRN Use IH SCH ×4 (01:24→19:33)
[2017-02-03] MEDS: DILAUDID IV PRN (02:06)
[2017-02-03] MEDS: APRESOLINE IV PRN (02:07)
[2017-02-03] MEDS: REGLAN IV SCH ×3 (06:07→21:08)
[2017-02-03] MEDS: HumuLIN R SUB-Q SCH ×4 (06:09→18:30)
[2017-02-03 07:15] LABS: BUN/Creatinine Ratio TNR; Blood Urea Nitrogen TNR mg/dL (7-17)
[2017-02-03 07:16] LABS: Calcium TNR mg/dL (8.4-10.2); Hemolysis Index TNR
[2017-02-03] MEDS: LOPRESSOR IV PRN (08:29)
[2017-02-03 09:27] LABS: Calcium 10.3 mg/dL (8.4-10.2)
[2017-02-03] MEDS: HEPARIN SUB-Q SCH ×2 (10:18→21:08)
[2017-02-03] MEDS: ROBINUL PO SCH ×2 (10:18→21:08)
[2017-02-03] MEDS: PROTONIX FEEDTUBE SCH (10:18)
--- NOTE | 2017-02-03 10:40 | Progress Note ---
Subjective Principal diagnosis: Acute resp failure on MVS; S/P Acute CVA; Acute Encephalopathy; JUANITA Interval history: Patient was seen today for follow-up on multiple renal-related issues patient has been maintained on dialysis due to non-recovery of renal function Neurologically her status has been unchanged Patient is currently pending placement Lab results were reviewed Social history: Reviewed Medication: Reviewed Family history: Reviewed Allergies: Reviewed Physical examination General; no acute distress HEENT: Mild pallor no icterus oral mucosa moist Neck: Supple soft no jugular venous distention, cath site essentially unremarkable Chest: Bilateral clear to auscultation anteriorly posteriorly a few faint basilar crackles at the lung bases no wheezes Cardiovascular: S1-S2 heart no S3-S4 Abdomen: Soft nontender no voluntary guarding rigidity rebound no organomegaly no masses no suprapubic fullness no CVA tenderness Extremity: Minimal edema dry skin no tenderness in the Area Derm: Dry skin Assessment and plan acute kidney injury with underlying chronic kidney disease patient is currently dialysis dependent. she will continue to dialyze 3 times every week for now she is currently nonoliguric but borderline To continue to dialyze Monday and Monday as tolerated, continue with hemodialysis current access is a permacath has been working well Monitor for any sign and symptoms of renal function recovery urine output has slightly improved Patient will need periodic transfusion if her hemoglobin is under 7 Possibly avoid erythropoietin as much as possible due to CVA Phosphorus and PTH level satisfactory February 02 Continue with supportive care Respiratory failure, massive stroke, paroxysmal atrial fibrillation failed cardioversion Multiple other health issues overall prognosis guarded to poor pending placement Objective - Vital Signs Vital signs: Vital Signs - 12hr 02/02/17 02/02/17 02/02/17 22:45 23:00 23:15 Temperature Pulse Rate 138 H 146 H 142 H Pulse Rate [ From Monitor] Pulse Rate [ Throughout] Respiratory 22 23 22 Rate Blood Pressure 116/67 103/62 103/62 O2 Sat by Pulse 94 94 95 Oximetry O2 Sat by Pulse Oximetry [ Assessment] 02/02/17 02/02/17 02/02/17 23:30 23:35 23:45 Temperature Pulse Rate 138 H 130 H 149 H Pulse Rate [ From Monitor] Pulse Rate [ Throughout] Respiratory 25 H 28 H Rate Blood Pressure 120/78 116/67 120/78 O2 Sat by Pulse 100 96 99 Oximetry O2 Sat by Pulse Oximetry [ Assessment] 02/02/17 02/02/17 02/03/17 23:49 23:53 00:00 Temperature 98.8 F Pulse Rate 129 H 143 H Pulse Rate [ From Monitor] Pulse Rate [ Throughout] Respiratory 25 H 27 H Rate Blood Pressure 120/78 115/65 O2 Sat by Pulse 99 100 Oximetry O2 Sat by Pulse Oximetry [ Assessment] 02/03/17 02/03/17 02/03/17 00:01 00:15 00:30 Temperature Pulse Rate 115 H 137 H 129 H Pulse Rate [ From Monitor] Pulse Rate [ Throughout] Respiratory 21 24 23 Rate Blood Pressure 115/65 115/65 111/66 O2 Sat by Pulse 100 100 100 Oximetry O2 Sat by Pulse Oximetry [ Assessment] 02/03/17 02/03/17 02/03/17 00:45 01:01 01:15 Temperature Pulse Rate 145 H 141 H 138 H Pulse Rate [ From Monitor] Pulse Rate [ Throughout] Respiratory 15 31 H 28 H Rate Blood Pressure 111/66 111/66 111/66 O2 Sat by Pulse 100 94 98 Oximetry O2 Sat by Pulse Oximetry [ Assessment] 02/03/17 02/03/17 02/03/17 01:24 01:31 01:45 Temperature Pulse Rate 141 H 136 H Pulse Rate [ From Monitor] Pulse Rate [ 141 H Throughout] Respiratory 25 H 18 Rate Blood Pressure 111/66 111/66 O2 Sat by Pulse 99 100 Oximetry O2 Sat by Pulse Oximetry [ Assessment] 02/03/17 02/03/17 02/03/17 02:00 02:07 02:15 Temperature Pulse Rate 132 H 151 H 135 H Pulse Rate [ From Monitor] Pulse Rate [ Throughout] Respiratory 14 19 Rate Blood Pressure 106/66 106/66 106/66 O2 Sat by Pulse 99 99 Oximetry O2 Sat by Pulse Oximetry [ Assessment] 02/03/17 02/03/17 02/03/17 02:30 02:45 02:55 Temperature Pulse Rate 133 H 142 H Pulse Rate [ From Monitor] Pulse Rate [ Throughout] Respiratory 23 26 H Rate Blood Pressure 112/71 112/71 O2 Sat by Pulse 99 98 Oximetry O2 Sat by Pulse 99 Oximetry [ Assessment] 02/03/17 02/03/17 02/03/17 03:01 03:15 03:31 Temperature Pulse Rate 129 H 147 H 139 H Pulse Rate [ From Monitor] Pulse Rate [ Throughout] Respiratory 19 26 H 26 H Rate Blood Pressure 92/39 101/56 94/49 O2 Sat by Pulse 100 99 100 Oximetry O2 Sat by Pulse Oximetry [ Assessment] 02/03/17 02/03/17 02/03/17 03:40 03:45 04:00 Temperature 98.9 F Pulse Rate 134 H 141 H Pulse Rate [ From Monitor] Pulse Rate [ Throughout] Respiratory 24 23 Rate Blood Pressure 94/49 99/50 O2 Sat by Pulse 100 100 Oximetry O2 Sat by Pulse Oximetry [ Assessment] 02/03/17 02/03/17 02/03/17 04:15 04:30 04:45 Temperature Pulse Rate 138 H 135 H 137 H Pulse Rate [ From Monitor] Pulse Rate [ Throughout] Respiratory 22 22 23 Rate Blood Pressure 99/50 100/53 100/53 O2 Sat by Pulse 99 99 99 Oximetry O2 Sat by Pulse Oximetry [ Assessment] 02/03/17 02/03/17 02/03/17 05:00 05:12 05:15 Temperature Pulse Rate 138 H 141 H 140 H Pulse Rate [ From Monitor] Pulse Rate [ Throughout] Respiratory 22 23 Rate Blood Pressure 110/63 110/63 110/63 O2 Sat by Pulse 99 100 100 Oximetry O2 Sat by Pulse Oximetry [ Assessment] 02/03/17 02/03/17 02/03/17 05:30 05:45 06:00 Temperature Pulse Rate 128 H 140 H 143 H Pulse Rate [ From Monitor] Pulse Rate [ Throughout] Respiratory 21 26 H 21 Rate Blood Pressure 101/58 101/58 97/61 O2 Sat by Pulse 100 96 100 Oximetry O2 Sat by Pulse Oximetry [ Assessment] 02/03/17 02/03/17 02/03/17 06:15 06:30 06:45 Temperature Pulse Rate 140 H 137 H 135 H Pulse Rate [ From Monitor] Pulse Rate [ Throughout] Respiratory 22 25 H 21 Rate Blood Pressure 97/61 102/57 102/57 O2 Sat by Pulse 100 100 100 Oximetry O2 Sat by Pulse Oximetry [ Assessment] 02/03/17 02/03/17 02/03/17 07:00 07:15 07:31 Temperature Pulse Rate 134 H 134 H 138 H Pulse Rate [ From Monitor] Pulse Rate [ Throughout] Respiratory 18 27 H 21 Rate Blood Pressure 105/57 105/57 105/57 O2 Sat by Pulse 100 100 100 Oximetry O2 Sat by Pulse Oximetry [ Assessment] 02/03/17 02/03/17 02/03/17 07:45 08:00 08:01 Temperature 98.6 F Pulse Rate 127 H 130 H Pulse Rate [ 130 H From Monitor] Pulse Rate [ Throughout] Respiratory 23 21 25 H Rate Blood Pressure 105/57 105/57 O2 Sat by Pulse 100 100 100 Oximetry O2 Sat by Pulse Oximetry [ Assessment] 02/03/17 02/03/17 02/03/17 08:15 08:29 08:30 Temperature Pulse Rate 155 H 143 H 137 H Pulse Rate [ From Monitor] Pulse Rate [ Throughout] Respiratory 21 22 Rate Blood Pressure 105/57 125/77 123/77 O2 Sat by Pulse 100 99 Oximetry O2 Sat by Pulse Oximetry [ Assessment] 02/03/17 09:50 Temperature Pulse Rate 101 H Pulse Rate [ From Monitor] Pulse Rate [ Throughout] Respiratory 18 Rate Blood Pressure 136/82 O2 Sat by Pulse 100 Oximetry O2 Sat by Pulse Oximetry [ Assessment] - Lab 02/05/17 09:59 02/05/17 04:00 Most recent lab results ABG pH 7.450 pH Units (7.350-7.450) 12/05/16 Unknown ABG pCO2 29.6 mm Hg 12/05/16 Unknown ABG pO2 75.2 mm Hg (80.0-90.0) L 12/05/16 Unknown ABG HCO3 20.1 mmol/L (20.0-26.0) 12/05/16 Unknown ABG O2 Saturation 96.8 % (95.0-99.0) 12/05/16 Unknown Calcium 10.3 mg/dL (8.4-10.2) H 02/03/17 07:38 Phosphorus 2.70 mg/dL (2.5-4.5) 02/03/17 07:38 Magnesium 2.00 mg/dL (1.7-2.3) 02/03/17 07:38 Urine Creatinine 19.7 mg/dL (0.1-20.0) 11/12/16 10:18 Urine Sodium 36 mEq/L 09/16/16 19:19 Urine Total Protein 16 mg/dL (5-11.8) H 09/16/16 19:19
[2017-02-03] MEDS: DURAGESIC TD SCH (12:52)
[2017-02-03] MEDS: TRANSDERM-SCOP TD SCH (14:13)
--- NOTE | 2017-02-03 14:50 | Progress Note ---
Assessment and Plan Assessment and plan: -- Paroxysmal atrial fibrillation with RVR, failed cardioversion Intermittent rapid ventricular rate, continue beta blockers, not a candidate for anticoagulation -- Massive stroke with mass effect, Continue supportive care -- Acute hypoxic respiratory failure, s/p tracheostomy vent dependent -- Multiple episodes of sepsis with septic shock during her hospitalization s/p aspiration pneumonia/peritonitis from gastric perforation/UTI/candidemia/ decubitus ulcer s/p sacral decubitus debridement, Right pleural effusion - scheduled for chest ultrasound for possible thoracentesis Currently on meropenem with stop date 02/04 --Pleural effusion ; possible thoracentesis by IR to improve respiratory status -- Acute renal failure/ ATN, improved significantly, creatinine near normal limits -- Diabetes, Accu-Cheks and SSI -- Anemia, Multifactorial, status post multiple PRBC transfusions -- Thrombocytopenia/secondary to sepsis -- Electrolyte abnormalities, correct as needed -- Severe protein calorie malnutrition, TPN -- Encephalopathy, Toxic metabolic initially, underlying conditions treated -- full code, poor prognosis Family aware of patient's condition and poor prognosis History Interval history: Patient seen and examined medical records reviewed Has tachycardia on the monitor, the patient is on the lower range Status post tracheostomy on vent, unable to wean Hospitalist Physical - Constitutional Vitals: Temp Pulse Resp BP Pulse Ox 98.8 F 100 H 22 121/59 100 02/03/17 12:00 02/03/17 14:41 02/03/17 14:41 02/03/17 14:41 02/03/17 14:41 General appearance: Present: no acute distress, well-nourished - EENT Eyes: Present: PERRL, EOM intact - Neck Neck: Present: supple, normal ROM - Respiratory Respiratory effort: normal Respiratory: bilateral: diminished, negative: rales, rhonchi, wheezing - Cardiovascular Rhythm: regular Heart Sounds: Present: S1 & S2 - Extremities Extremities: no ischemia, abnormal (contracted) Extremity abnormal: edema, erythema - Abdominal General gastrointestinal: soft, non-tender, non-distended, normal bowel sounds - Integumentary Integumentary: Present: clear, warm - Psychiatric Psychiatric: appropriate mood/affect, cooperative - Neurologic Neurologic: CNII-XII intact, moves all extremities Results - Labs CBC & Chem 7: 02/02/17 10:16 02/03/17 07:38 Labs: Laboratory Last Values WBC 12.0 K/mm3 (4.5-11.0) H 02/02/17 10:16 RBC 3.08 M/mm3 (3.65-5.03) L 02/02/17 10:16 Hgb 8.3 gm/dl (10.1-14.3) L 02/02/17 10:16 Hct 25.6 % (30.3-42.9) L 02/02/17 10:16 MCV 83 fl (79-97) 02/02/17 10:16 MCH 27 pg (28-32) L 02/02/17 10:16 MCHC 32 % (30-34) 02/02/17 10:16 RDW 18.2 % (13.2-15.2) H 02/02/17 10:16 Plt Count 336 K/mm3 (140-440) 02/02/17 10:16 Lymph % (Auto) 13.9 % (13.4-35.0) 02/02/17 10:16 [place] % (Auto) 5.8 % (0.0-7.3) 02/02/17 10:16 Eos % (Auto) 1.3 % (0.0-4.3) 02/02/17 10:16 Baso % (Auto) 0.6 % (0.0-1.8) 02/02/17 10:16 Lymph # 1.7 K/mm3 (1.2-5.4) 02/02/17 10:16 [place] # 0.7 K/mm3 (0.0-0.8) 02/02/17 10:16 Eos # 0.2 K/mm3 (0.0-0.4) 02/02/17 10:16 Baso # 0.1 K/mm3 (0.0-0.1) 02/02/17 10:16 Add Manual Diff Complete 12/19/16 05:02 Total Counted 100 12/19/16 05:02 Seg Neutrophils % 78.4 % (40.0-70.0) H 02/02/17 10:16 Seg Neuts % (Manual) 64.0 % (40.0-70.0) 12/19/16 05:02 Band Neutrophils % 15.0 % 12/19/16 05:02 Lymphocytes % (Manual) 13.0 % (13.4-35.0) L 12/19/16 05:02 Reactive Lymphs % (Man) 0 % 12/19/16 05:02 Monocytes % (Manual) 7.0 % (0.0-7.3) 12/19/16 05:02 Eosinophils % (Manual) 0 % (0.0-4.3) 12/19/16 05:02 Basophils % (Manual) 1.0 % (0.0-1.8) 12/19/16 05:02 Metamyelocytes % 0 % 12/19/16 05:02 Myelocytes % 0 % 12/19/16 05:02 Promyelocytes % 0 % 12/19/16 05:02 Blast Cells % 0 % 12/19/16 05:02 Nucleated RBC % 1.0 % (0.0-0.9) H 12/19/16 05:02 Seg Neutrophils # 9.4 K/mm3 (1.8-7.7) H 02/02/17 10:16 Seg Neutrophils # Man 12.9 K/mm3 (1.8-7.7) H 12/19/16 05:02 Band Neutrophils # 3.0 K/mm3 12/19/16 05:02 Lymphocytes # (Manual) 2.6 K/mm3 (1.2-5.4) 12/19/16 05:02 Abs React Lymphs (Man) 0.0 K/mm3 12/19/16 05:02 Monocytes # (Manual) 1.4 K/mm3 (0.0-0.8) H 12/19/16 05:02 Eosinophils # (Manual) 0.0 K/mm3 (0.0-0.4) 12/19/16 05:02 Basophils # (Manual) 0.2 K/mm3 (0.0-0.1) H 12/19/16 05:02 Metamyelocytes # 0.0 K/mm3 12/19/16 05:02 Myelocytes # 0.0 K/mm3 12/19/16 05:02 Promyelocytes # 0.0 K/mm3 12/19/16 05:02 Blast Cells # 0.0 K/mm3 12/19/16 05:02 Pathologist Review 09/13/16 04:00 WBC Morphology Not Reportable 12/19/16 05:02 Hypersegmented Neuts Not Reportable 12/19/16 05:02 Hyposegmented Neuts Not Reportable 12/19/16 05:02 Hypogranular Neuts Not Reportable 12/19/16 05:02 Smudge Cells Not Reportable 12/19/16 05:02 Toxic Granulation Not Reportable 12/19/16 05:02 Toxic Vacuolation Not Reportable 12/19/16 05:02 Dohle Bodies Not Reportable 12/19/16 05:02 Pelger-Huet Anomaly Not Reportable 12/19/16 05:02 Jasmina Rods Not Reportable 12/19/16 05:02 Platelet Estimate Consistent w auto 12/19/16 05:02 Clumped Platelets Not Reportable 12/19/16 05:02 Plt Clumps, EDTA Not Reportable 12/19/16 05:02 Large Platelets Not Reportable 12/19/16 05:02 Giant Platelets Not Reportable 12/19/16 05:02 Platelet Satelliting Not Reportable 12/19/16 05:02 Plt Morphology Comment Not Reportable 12/19/16 05:02 RBC Morphology Not Reportable 12/19/16 05:02 Dimorphic RBCs Not Reportable 12/19/16 05:02 Polychromasia Not Reportable 12/19/16 05:02 Hypochromasia Not Reportable 12/19/16 05:02 Poikilocytosis Not Reportable 12/19/16 05:02 Anisocytosis Not Reportable 12/19/16 05:02 Microcytosis Not Reportable 12/19/16 05:02 Macrocytosis Not Reportable 12/19/16 05:02 Spherocytes Not Reportable 12/19/16 05:02 Pappenheimer Bodies Not Reportable 12/19/16 05:02 Sickle Cells Not Reportable 12/19/16 05:02 Target Cells Few 12/19/16 05:02 Tear Drop Cells Not Reportable 12/19/16 05:02 Ovalocytes Not Reportable 12/19/16 05:02 Stomatocytes Rare 12/03/16 04:00 Helmet Cells Not Reportable 12/19/16 05:02 Monet-Sutton Bodies Not Reportable 12/19/16 05:02 [place] Rings Not Reportable 12/19/16 05:02 Arnold Cells Not Reportable 12/19/16 05:02 Bite Cells Not Reportable 12/19/16 05:02 Crenated Cell Not Reportable 12/19/16 05:02 Elliptocytes Not Reportable 12/19/16 05:02 Acanthocytes (Spur) Not Reportable 12/19/16 05:02 Rouleaux Not Reportable 12/19/16 05:02 Hemoglobin C Crystals Not Reportable 12/19/16 05:02 Schistocytes Not Reportable 12/19/16 05:02 Malaria parasites Not Reportable 12/19/16 05:02 ESR > 140.0 mm/Hr (0-20) 09/08/16 11:48 Jun Bodies Not Reportable 12/19/16 05:02 Hem Pathologist Commnt No 12/19/16 05:02 PT 15.4 Sec. (12.2-14.9) H 01/13/17 15:50 INR 1.16 (0.87-1.13) H 01/13/17 15:50 APTT 33.0 Sec. (24.2-36.6) 10/09/16 03:45 Thrombin Time 16.8 Sec. (15.1-19.6) 09/03/16 00:10 Fibrinogen 750 mg/dl (211-480) H 09/08/16 11:48 Lupus Anticoagulant see below 09/12/16 09:59 LA PTT Baseline See scanned report 09/12/16 09:59 dRVVT Confirm Interp Positive (Negative) H 09/12/16 09:59 dRVVT Screen 50:50 See scanned report 09/12/16 09:59 dRVVT Mix Interpret See scanned report 09/12/16 09:59 Protein C Antigen 122 % (70-140) 09/08/16 15:35 Free Protein S 97 % normal (50-147) 09/08/16 15:35 Total Protein S 109 % (70-140) 09/08/16 15:35 Antithrombin III Ag 100 % (80-120) 09/08/16 15:35 Heparin Anti-Xa, Unfract Negative (Negative) 09/29/16 13:35 Factor V Activity 182 % (65-150) H 09/08/16 15:35 POC ABG pH 7.436 (7.35-7.45) 01/20/17 12:17 ABG pH 7.450 pH Units (7.350-7.450) 12/05/16 Unknown POC ABG pCO2 35.3 (35-45) 01/20/17 12: ABG pCO2 29.6 mm Hg 12/05/16 Unknown POC ABG pO2 70 (80-105) L 01/20/17 12: ABG pO2 75.2 mm Hg (80.0-90.0) L 12/05/16 Unknown POC ABG HCO3 23.8 01/20/17 12: ABG HCO3 20.1 mmol/L (20.0-26.0) 12/05/16 Unknown POC ABG Total CO2 25 01/20/17 12: POC ABG O2 Sat 94 01/20/17 12: ABG O2 Saturation 96.8 % (95.0-99.0) 12/05/16 Unknown ABG O2 Content 9.9 (0.0-44) 12/05/16 Unknown POC ABG Base Excess 0 01/20/17 12: ABG Base Excess -3.4 mmol/L (-2.0-3.0) L 12/05/16 Unknown ABG Hemoglobin 7.4 gm/dl (12.0-16.0) L 12/05/16 Unknown ABG Carboxyhemoglobin 1.8 % (0.0-5.0) 12/05/16 Unknown ABG Methemoglobin 0.6 % (0.0-1.5) 12/05/16 Unknown Oxyhemoglobin 94.5 % (95.0-99.0) L 12/05/16 Unknown FiO2 30 % 01/20/17 12:17 Sodium 134 mmol/L (137-145) L 02/03/17 07:38 Potassium 3.8 mmol/L (3.6-5.0) 02/03/17 07:38 Chloride 99.2 mmol/L (98-107) 02/03/17 07:38 Carbon Dioxide 21 mmol/L (22-30) L 02/03/17 07:38 Anion Gap 18 mmol/L 02/03/17 07:38 BUN 91 mg/dL (7-17) H 02/03/17 07:38 Creatinine 1.9 mg/dL (0.7-1.2) H 02/03/17 07:38 Estimated GFR 34 ml/min 02/03/17 07:38 BUN/Creatinine Ratio 48 % 02/03/17 07:38 Glucose 110 mg/dL (65-100) H 02/03/17 07:38 POC Glucose 119 (70-105) H 02/03/17 05:41 Osmolality 351 Mosm/kg 09/16/16 11:47 Lactic Acid 2.30 mmol/L (0.7-2.0) H* 01/09/17 08:22 Calcium 10.3 mg/dL (8.4-10.2) H 02/03/17 07:38 Phosphorus 2.70 mg/dL (2.5-4.5) 02/03/17 07:38 Magnesium 2.00 mg/dL (1.7-2.3) 02/03/17 07:38 Total Bilirubin 0.50 mg/dL (0.1-1.2) 01/28/17 04:00 Direct Bilirubin 0.2 mg/dL (0-0.2) 01/28/17 04:00 Indirect Bilirubin 0.3 mg/dL 01/28/17 04:00 AST 14 units/L (5-40) 01/28/17 04:00 ALT 9 units/L (7-56) 01/28/17 04:00 Alkaline Phosphatase 113 units/L (35-129) 01/28/17 04:00 Ammonia 27.0 umol/L (25-60) 09/07/16 08:37 Lactate Dehydrogenase 170 units/L (91-180) 01/13/17 15:50 Total Creatine Kinase 121 units/L (30-135) 09/29/16 20:12 CK-MB (CK-2) < 1.0 ng/mL (0.0-4.0) 09/29/16 20:12 CK-MB (CK-2) Rel Index 0.8 (0-4) 09/29/16 20:12 Troponin T 0.204 ng/mL (0.00-0.029) H* 09/29/16 20:12 C-Reactive Protein 8.10 mg/dL (0.00-1.30) H 01/31/17 11:12 Total Protein 6.3 g/dL (6.3-8.2) 01/28/17 04:00 Albumin 1.4 g/dL (3.9-5) L 01/28/17 04:00 Albumin/Globulin Ratio 0.3 % 01/28/17 04:00 Prealbumin 0.110 g/L (0.200-0.400) L 12/29/16 05:15 Triglycerides 137 mg/dL (2-149) 09/29/16 20:12 Cholesterol 31 mg/dL (50-199) L 09/29/16 20:12 LDL Cholesterol Direct 4 mg/dL (50-130) L 09/29/16 20:12 HDL Cholesterol 3 mg/dL (40-59) L 09/29/16 20:12 Cholesterol/HDL Ratio 10.33 % 09/29/16 20:12 Angiotensin Convert Enz See scanned report 09/08/16 11:48 Renin 0.99 ng/mL/h (0.25-5.82) 10/07/16 10:56 Aldosterone <1 ng/dL () 10/07/16 10:56 Aldosterone/Renin Dir see below 10/07/16 10:56 Serotonin Release Assay See scanned report 09/29/16 13:35 TSH 1.010 mlU/mL (0.270-4.200) 09/07/16 08:37 HCG, Qual Negative (Negative) 09/03/16 00:10 PTH Intact 6.76 pg/mL (15-65) L 01/31/17 17:50 Urine Color Yellow (Yellow) 11/05/16 13:09 Urine Turbidity Clear (Clear) 11/05/16 13:09 Urine pH 9.0 (5.0-7.0) H 11/05/16 13:09 Ur Specific [place] 1.011 (1.003-1.030) 11/05/16 13:09 Urine Protein 100 mg/dl mg/dL (Negative) 11/05/16 13:09 Urine Glucose (UA) Neg mg/dL (Negative) 11/05/16 13:09 Urine Ketones Neg mg/dL (Negative) 11/05/16 13:09 Urine Blood Neg (Negative) 11/05/16 13:09 Urine Nitrite Neg (Negative) 11/05/16 13:09 Urine Bilirubin Neg (Negative) 11/05/16 13:09 Urine Urobilinogen < 2.0 mg/dL (<2.0) 11/05/16 13:09 Ur Leukocyte Esterase Neg (Negative) 11/05/16 13:09 Urine WBC (Auto) 4.0 /HPF (0.0-6.0) 11/05/16 13:09 Urine RBC (Auto) 1.0 /HPF (0.0-6.0) 11/05/16 13:09 U Epithel Cells (Auto) 1.0 /HPF (0-13.0) 10/07/16 18:30 Urine Bacteria (Auto) 4+ /HPF (Negative) 11/05/16 13:09 Urine WBC Clumps 2+ /HPF 09/07/16 02:47 Hyaline Casts 4 /LPF 09/07/16 02:47 Urine Mucus Few /HPF 10/07/16 18:30 Urine Yeast (Budding) 3+ /HPF 10/07/16 18:30 Urine Eosinophils None seen (None Seen) 09/07/16 16:00 Urine Total Volume 950 11/12/16 10:18 Urine Creatinine 19.7 mg/dL (0.1-20.0) 11/12/16 10:18 Height (in) 65.0 inches 11/12/16 10:18 Weight (lb) 181.0 lbs 11/12/16 10:18 Creatinine Clearance 5 11/12/16 10:18 Urine Sodium 36 mEq/L 09/16/16 19:19 Urine Total Protein 16 mg/dL (5-11.8) H 09/16/16 19:19 Fluid Type Pleural 01/13/17 12:10 Fluid Color Yellow 01/13/17 12:10 Fluid Appearance Hazy 01/13/17 12:10 Fluid WBC 182 /mm3 01/13/17 12:10 Fluid RBC 41 /mm3 01/13/17 12:10 Fluid Seg Neutrophils 85.0 % 01/13/17 12:10 Fluid Lymphocytes 8.0 % 01/13/17 12:10 Fluid Reactive Lymphs 0 % 01/13/17 12:10 Fluid Monocytes 6.0 % 01/13/17 12:10 Fluid Eosinophils 1.0 % 01/13/17 12:10 Fluid Basophils 0 % 01/13/17 12:10 Fluid Total Protein 3.0 (15.0-45.0) L 01/13/17 12:10 Fluid LDH 1322 01/13/17 12:10 Fluid Comment Diff performed 01/13/17 12:10 Vancomycin Trough 2.3 ug/mL (5.0-20.0) L 09/21/16 13:00 Random Vancomycin 16.5 ug/mL (0-40.0) 11/28/16 09:45 Urine Opiates Screen Presumptive negative 09/03/16 15:11 Urine Methadone Screen Presumptive positive 09/03/16 15:11 Ur Barbiturates Screen Presumptive positive 09/03/16 15:11 Ur Phencyclidine Scrn Presumptive negative 09/03/16 15:11 Ur Amphetamines Screen Presumptive negative 09/03/16 15:11 U Benzodiazepines Scrn Presumptive negative 09/03/16 15:11 Urine Cocaine Screen Presumptive negative 09/03/16 15:11 U Marijuana (THC) Screen Presumptive positive 09/03/16 15:11 Drugs of Abuse Note Disclamer 09/03/16 15:11 Rheumatoid Factor 24 IU/ml (0-13) H 09/08/16 11:48 SAHIL Screen Negative (Negative) 09/07/16 09:20 Proteinase 3 (PR3) Ab <1.0 AI (<1.0) 09/07/16 09:20 Myeloperoxidase Ab <1.0 AI (<1.0) 09/07/16 09:20 Sjogren's Antibody <1.0 AI (<1.0) 09/08/16 15:35 Scl-70 Scleroderma Ab <1.0 AI (<1.0) 09/08/16 15:35 Centromere B Antibody <1.0 AI (<1.0) 09/08/16 12:02 Heparin-induced Plt Ab Negative (Negative) 09/29/16 13:35 UF Heparin High Dose 11 % Release 09/29/16 13:35 SUDHIR UFH Low Dose 0.1 6 % Release 09/29/16 13:35 SUDHIR UFH Low Dose 0.5 8 % Release 09/29/16 13:35 Cardiolipid IgG Ab <14 GPL (<=14) 09/12/16 09:59 Cardiolipid IgA Ab <11 APL (<=11) 09/12/16 09:59 Cardiolipid IgM Ab <12 MPL (<=12) 09/12/16 09:59 Complement C3 148 mg/dL (90-180) 09/07/16 09:20 Complement C4 58 mg/dL (16-47) H 09/07/16 09:20 RPR Nonreactive (Nonreactive) 09/08/16 11:48 Hepatitis A IgM Ab Non-reactive (NonReactive) 09/24/16 14:40 Hep Bs Antigen Non-reactive (Negative) 09/24/16 14:40 Hep B Core IgM Ab Non-reactive (NonReactive) 09/24/16 14:40 Hepatitis C Antibody Non-reactive (NonReactive) 09/24/16 14:40 HIV 1&2 Antibody Rapid Non react (Non React) 09/08/16 11:48 HIV P24 Antigen Non react (Non React) 09/08/16 11:48 Miscellaneous Test Flexitest 1 H 01/09/17 18:45 Blood Type A POSITIVE 01/25/17 11:15 Antibody Screen Negative 01/25/17 11:15 DELORIS Antibody Screen Negative 11/24/16 11:20 Crossmatch See Detail 01/25/17 11:15
--- NOTE | 2017-02-03 15:04 | Progress Note ---
Assessment and Plan Patient is 46-year-old woman with a history of hypertension, diabetes mellitus, asthma, hyperlipidemia, chronic kidney disease and anxiety, who was brought in by family because she couldn't get her words out, her face was also twisted, she was admitted for acute CVA and accelerated hypertension, she had a hx of poor adherence with her medications, and uncontrolled htn. Patient's SBP on admission was noted be greater than 260. TPA was started but this it was discontinued after 5 minutes because her blood pressure became uncontrolled. The TPA was not initiated again because the patient was outside the TPA window. Patient has had a prolonged hospital stay complicated with recurrent severe sepsis. Patient with most recent event also status post cardiac arrest on , with CPR and ROSC. Acute on chronic Hypoxemic Respiratory Failure ( not tolerating spontaneous breathing trials) Sepsis -recurrent s/p tracheostomy Hypertension Atrial Fibrillation with RVR Acute encephalopathy s/p CVA Oropharyngeal dysphagia Enterococcal bacteremia Sacral Decubitus Ulcer- unstageable s/p debridement Anemia Obesity JUANITA now on hemodialysis Enteric Fistula - VAP bundle addressed -CTchest in am for possible pleural drain placement, IR following - continue NGT to LIS -Continue promotility agent--reglan - continue wound care/wound vac per WCT - Vasopressor if MAP falls < 65mmHg - keep on with daily PSV trials and / or T-piece as tolerated - continue TPN administration (continue TPN; NPO except for meds) - continue airway clearance and secretion management - continue to wean FiO2 for sats > 94% - continue antihypertensives and monitor hemodynamics closely - continue HD/UF per nephrology - continue to follow electrolytes and correct as necessary - continue GI & VTE prophylaxis Transfuse 1 unit PRBC as needed to keep HgH>7g/dL .....she remains critically ill on life sustaining interventions including MVS and at risk for further deterioration including ...terminologist prognosis remains poor - Patient Problems (1) Acute respiratory failure with hypoxia Current Visit: Yes Status: Acute (2) Acute blood loss anemia Current Visit: Yes Status: Resolved (3) Acute CVA (cerebrovascular accident) Current Visit: Yes Status: Acute (4) Chronic renal insufficiency Current Visit: Yes Status: Acute (5) Uncontrolled hypertension Current Visit: Yes Status: Acute (6) Leukocytosis (leucocytosis) Current Visit: Yes Status: Acute Qualifiers: Leukocytosis type: leukemoid reaction Qualified Code(s): D72.823 - Leukemoid reaction (7) Dislodged gastrostomy tube Current Visit: Yes Status: Acute (8) Fungemia Current Visit: Yes Status: Resolved (9) Cardiopulmonary arrest with successful resuscitation Current Visit: Yes Status: Acute Subjective Date of service: 02/03/17 Principal diagnosis: Acute resp failure on MVS; S/P Acute CVA; Acute Encephalopathy; JUANITA Interval history: Patient is seen today for: Acute resp failure on MVS; S/P Acute CVA; Acute Encephalopathy; JUANITA Seen and examined at bedside; 24hour events reviewed; nursing and respiratory care staff consulted; no adverse overnight events reported to me; she remains critically ill , Did not tolerate weaning today. Off norepinephrine No fevers. Did not get CTchest as of this morning. Per RN, radiology is discussing the best way to address the right pleural space. Currently on PSV 18/5, with tidal volumes of about 300 Discussed during interdisciplinary rounds Vitals, labs, medications, chart reviewed. Objective Vital Signs - 12hr 02/03/17 02/03/17 02/03/17 03:15 03:31 03:40 Temperature 98.9 F Pulse Rate 147 H 139 H Pulse Rate [ From Monitor] Pulse Rate [ Right Lower Lobe] Respiratory 26 H 26 H Rate Respiratory Rate [ Generalized] Respiratory Rate [Right Lower Lobe] Blood Pressure 101/56 94/49 O2 Sat by Pulse 99 100 Oximetry O2 Sat by Pulse Oximetry [ Assessment] 02/03/17 02/03/17 02/03/17 03:45 04:00 04:15 Temperature Pulse Rate 134 H 141 H 138 H Pulse Rate [ From Monitor] Pulse Rate [ Right Lower Lobe] Respiratory 24 23 22 Rate Respiratory Rate [ Generalized] Respiratory Rate [Right Lower Lobe] Blood Pressure 94/49 99/50 99/50 O2 Sat by Pulse 100 100 99 Oximetry O2 Sat by Pulse Oximetry [ Assessment] 02/03/17 02/03/17 02/03/17 04:30 04:45 05:00 Temperature Pulse Rate 135 H 137 H 138 H Pulse Rate [ From Monitor] Pulse Rate [ Right Lower Lobe] Respiratory 22 23 22 Rate Respiratory Rate [ Generalized] Respiratory Rate [Right Lower Lobe] Blood Pressure 100/53 100/53 110/63 O2 Sat by Pulse 99 99 99 Oximetry O2 Sat by Pulse Oximetry [ Assessment] 1202/03/17 02/03/17 05:12 05:15 05:30 Temperature Pulse Rate 141 H 140 H 128 H Pulse Rate [ From Monitor] Pulse Rate [ Right Lower Lobe] Respiratory 23 21 Rate Respiratory Rate [ Generalized] Respiratory Rate [Right Lower Lobe] Blood Pressure 110/63 110/63 101/58 O2 Sat by Pulse 100 100 100 Oximetry O2 Sat by Pulse Oximetry [ Assessment] 02/03/17 02/03/17 02/03/17 05:45 06:00 06:15 Temperature Pulse Rate 140 H 143 H 140 H Pulse Rate [ From Monitor] Pulse Rate [ Right Lower Lobe] Respiratory 26 H 21 22 Rate Respiratory Rate [ Generalized] Respiratory Rate [Right Lower Lobe] Blood Pressure 101/58 97/61 97/61 O2 Sat by Pulse 96 100 100 Oximetry O2 Sat by Pulse Oximetry [ Assessment] 02/03/17 02/03/17 02/03/17 06:30 06:45 07:00 Temperature Pulse Rate 137 H 135 H 134 H Pulse Rate [ From Monitor] Pulse Rate [ Right Lower Lobe] Respiratory 25 H 21 18 Rate Respiratory Rate [ Generalized] Respiratory Rate [Right Lower Lobe] Blood Pressure 102/57 102/57 105/57 O2 Sat by Pulse 100 100 100 Oximetry O2 Sat by Pulse Oximetry [ Assessment] 02/03/17 02/03/17 02/03/17 07:15 07:31 07:45 Temperature Pulse Rate 134 H 138 H 127 H Pulse Rate [ From Monitor] Pulse Rate [ Right Lower Lobe] Respiratory 27 H 21 23 Rate Respiratory Rate [ Generalized] Respiratory Rate [Right Lower Lobe] Blood Pressure 105/57 105/57 105/57 O2 Sat by Pulse 100 100 100 Oximetry O2 Sat by Pulse Oximetry [ Assessment] 02/03/17 02/03/17 02/03/17 08:00 08:01 08:15 Temperature 98.6 F Pulse Rate 130 H 155 H Pulse Rate [ 130 H From Monitor] Pulse Rate [ Right Lower Lobe] Respiratory 21 25 H 21 Rate Respiratory Rate [ Generalized] Respiratory Rate [Right Lower Lobe] Blood Pressure 105/57 105/57 O2 Sat by Pulse 100 100 100 Oximetry O2 Sat by Pulse Oximetry [ Assessment] 02/03/17 02/03/17 02/03/17 08:29 08:30 09:00 Temperature Pulse Rate 143 H 137 H 118 H Pulse Rate [ From Monitor] Pulse Rate [ Right Lower Lobe] Respiratory 22 21 Rate Respiratory Rate [ Generalized] Respiratory Rate [Right Lower Lobe] Blood Pressure 125/77 123/77 117/82 O2 Sat by Pulse 99 100 Oximetry O2 Sat by Pulse Oximetry [ Assessment] 02/03/17 02/03/17 02/03/17 09:30 09:35 09:50 Temperature Pulse Rate 104 H 101 H Pulse Rate [ From Monitor] Pulse Rate [ 120 H Right Lower Lobe] Respiratory 22 18 Rate Respiratory Rate [ Generalized] Respiratory 22 Rate [Right Lower Lobe] Blood Pressure 130/81 136/82 O2 Sat by Pulse 100 100 Oximetry O2 Sat by Pulse Oximetry [ Assessment] 02/03/17 02/03/17 02/03/17 09:55 10:00 10:20 Temperature Pulse Rate 107 H Pulse Rate [ From Monitor] Pulse Rate [ 105 H Right Lower Lobe] Respiratory 25 H Rate Respiratory 21 Rate [ Generalized] Respiratory 28 H Rate [Right Lower Lobe] Blood Pressure 136/82 O2 Sat by Pulse 98 Oximetry O2 Sat by Pulse 98 Oximetry [ Assessment] 02/03/17 02/03/17 02/03/17 10:30 11:00 11:30 Temperature Pulse Rate 108 H 106 H 104 H Pulse Rate [ From Monitor] Pulse Rate [ Right Lower Lobe] Respiratory 29 H 24 27 H Rate Respiratory Rate [ Generalized] Respiratory Rate [Right Lower Lobe] Blood Pressure 122/82 120/74 119/74 O2 Sat by Pulse 97 96 100 Oximetry O2 Sat by Pulse Oximetry [ Assessment] 02/03/17 02/03/17 02/03/17 12:00 12:30 12:52 Temperature 98.8 F Pulse Rate 107 H 110 H Pulse Rate [ 103 H From Monitor] Pulse Rate [ Right Lower Lobe] Respiratory 28 H 12 28 H Rate Respiratory Rate [ Generalized] Respiratory Rate [Right Lower Lobe] Blood Pressure 128/68 119/66 O2 Sat by Pulse 100 97 Oximetry O2 Sat by Pulse Oximetry [ Assessment] 02/03/17 02/03/17 02/03/17 13:00 13:30 14:41 Temperature Pulse Rate 92 H 96 H 100 H Pulse Rate [ From Monitor] Pulse Rate [ Right Lower Lobe] Respiratory 23 33 H 22 Rate Respiratory Rate [ Generalized] Respiratory Rate [Right Lower Lobe] Blood Pressure 99/56 108/52 121/59 O2 Sat by Pulse 100 98 100 Oximetry O2 Sat by Pulse Oximetry [ Assessment] Constitutional: appears uncomfortable, other (not tracking) Eyes: non-icteric, other (tracheostomy tube in midline of neck) ENT: oropharynx moist, oropharyngeal exudate pre Neck: supple, no lymphadenopathy, no JVD, other (no thyromegaly) Effort: mildly labored Ascultation: Bilateral: clear, diminished breath sounds (right base), rales, rhonchi (and referred upper airway sounds) Percussion: Right: dull (base), Bilateral: not dull Cardiovascular: regular rate and rhythm, other (no rubs / murmurs) Gastrointestinal: hypoactive bowel sounds, soft, non-tender, non-distended, other (RLQ & LUQ stomas with colostomy bags) Integumentary: decubitus ulcer (sacral; stage 4 s/p surgical debridement), other (no rash; no cellulitis; poor turgor) Extremities: no cyanosis, pulses normal, no ischemia or petechiae, edema (1+ bilaterally) Neurologic: pupils equal and round, unable to assess, other (encephalopathic) Psychiatric: other (unable to assess) CBC and BMP: 02/02/17 10:16 02/03/17 07:38 ABG, PT/INR, D-dimer: ABG POC ABG pH 7.436 (7.35-7.45) 01/20/17 12:17 ABG pH 7.450 pH Units (7.350-7.450) 12/05/16 Unknown POC ABG pCO2 35.3 (35-45) 01/20/17 12: ABG pCO2 29.6 mm Hg 12/05/16 Unknown POC ABG pO2 70 (80-105) L 01/20/17 12:17 ABG pO2 75.2 mm Hg (80.0-90.0) L 12/05/16 Unknown POC ABG HCO3 23.8 01/20/17 12: POC ABG Total CO2 25 01/20/17 12: POC ABG O2 Sat 94 01/20/17 12:17 ABG O2 Saturation 96.8 % (95.0-99.0) 12/05/16 Unknown PT/INR, D-dimer PT 15.4 Sec. (12.2-14.9) H 01/13/17 15:50 INR 1.16 (0.87-1.13) H 01/13/17 15:50 Abnormal lab findings: Abnormal Labs 09/03/16 09/03/16 09/03/16 00:03 00:10 00:10 WBC 13.9 H RBC 5.95 H Hgb Hct 44.0 H MCV 74 L MCH 22 L MCHC RDW 17.5 H Plt Count Lymph % (Auto) [place] % (Auto) Lymph # [place] # Baso # Seg Neutrophils % Seg Neuts % (Manual) Lymphocytes % (Manual) 54.0 H Monocytes % (Manual) Eosinophils % (Manual) Basophils % (Manual) Nucleated RBC % Seg Neutrophils # Seg Neutrophils # Man Lymphocytes # (Manual) 7.5 H Monocytes # (Manual) Eosinophils # (Manual) Basophils # (Manual) PT INR Fibrinogen dRVVT Confirm Interp Factor V Activity POC ABG pH POC ABG pCO2 POC ABG pO2 ABG pO2 ABG HCO3 ABG Base Excess ABG Hemoglobin Oxyhemoglobin Sodium Potassium 2.8 L* Chloride Carbon Dioxide 21 L BUN Creatinine 1.7 H Glucose 159 H POC Glucose 177 H Lactic Acid Calcium Phosphorus Magnesium Direct Bilirubin AST ALT Alkaline Phosphatase Lactate Dehydrogenase Troponin T C-Reactive Protein Total Protein Albumin Prealbumin Triglycerides Cholesterol LDL Cholesterol Direct HDL Cholesterol PTH Intact Urine pH Urine WBC (Auto) Urine Creatinine Urine Total Protein Fluid Total Protein Vancomycin Trough Rheumatoid Factor Complement C4 Miscellaneous Test Crossmatch 09/03/16 09/03/16 09/03/16 12:12 15:07 16:20 WBC RBC Hgb Hct MCV MCH MCHC RDW Plt Count Lymph % (Auto) [place] % (Auto) Lymph # [place] # Baso # Seg Neutrophils % Seg Neuts % (Manual) Lymphocytes % (Manual) Monocytes % (Manual) Eosinophils % (Manual) Basophils % (Manual) Nucleated RBC % Seg Neutrophils # Seg Neutrophils # Man Lymphocytes # (Manual) Monocytes # (Manual) Eosinophils # (Manual) Basophils # (Manual) PT INR Fibrinogen dRVVT Confirm Interp Factor V Activity POC ABG pH 7.452 H POC ABG pCO2 POC ABG pO2 ABG pO2 ABG HCO3 ABG Base Excess ABG Hemoglobin Oxyhemoglobin Sodium Potassium Chloride Carbon Dioxide BUN Creatinine Glucose POC Glucose 178 H Lactic Acid Calcium Phosphorus 2.20 L Magnesium 1.60 L Direct Bilirubin AST ALT Alkaline Phosphatase Lactate Dehydrogenase Troponin T C-Reactive Protein Total Protein Albumin Prealbumin Triglycerides Cholesterol LDL Cholesterol Direct HDL Cholesterol PTH Intact Urine pH Urine WBC (Auto) Urine Creatinine Urine Total Protein Fluid Total Protein Vancomycin Trough Rheumatoid Factor Complement C4 Miscellaneous Test Crossmatch 09/03/16 09/03/16 09/03/16 17:57 17:58 23:50 WBC RBC Hgb Hct MCV MCH MCHC RDW Plt Count Lymph % (Auto) [place] % (Auto) Lymph # [place] # Baso # Seg Neutrophils % Seg Neuts % (Manual) Lymphocytes % (Manual) Monocytes % (Manual) Eosinophils % (Manual) Basophils % (Manual) Nucleated RBC % Seg Neutrophils # Seg Neutrophils # Man Lymphocytes # (Manual) Monocytes # (Manual) Eosinophils # (Manual) Basophils # (Manual) PT INR Fibrinogen dRVVT Confirm Interp Factor V Activity POC ABG pH POC ABG pCO2 POC ABG pO2 ABG pO2 ABG HCO3 ABG Base Excess ABG Hemoglobin Oxyhemoglobin Sodium Potassium Chloride Carbon Dioxide BUN Creatinine Glucose POC Glucose 162 H 145 H Lactic Acid Calcium Phosphorus 2.30 L Magnesium Direct Bilirubin AST ALT Alkaline Phosphatase Lactate Dehydrogenase Troponin T C-Reactive Protein Total Protein Albumin Prealbumin Triglycerides Cholesterol LDL Cholesterol Direct HDL Cholesterol PTH Intact Urine pH Urine WBC (Auto) Urine Creatinine Urine Total Protein Fluid Total Protein Vancomycin Trough Rheumatoid Factor Complement C4 Miscellaneous Test Crossmatch 09/04/16 09/04/16 09/04/16 03:31 03:31 05:42 WBC RBC Hgb 9.7 L D Hct MCV 72 L MCH 23 L MCHC RDW 17.5 H Plt Count Lymph % (Auto) 11.1 L [place] % (Auto) Lymph # [place] # Baso # Seg Neutrophils % 84.3 H Seg Neuts % (Manual) Lymphocytes % (Manual) Monocytes % (Manual) Eosinophils % (Manual) Basophils % (Manual) Nucleated RBC % Seg Neutrophils # 8.9 H Seg Neutrophils # Man Lymphocytes # (Manual) Monocytes # (Manual) Eosinophils # (Manual) Basophils # (Manual) PT INR Fibrinogen dRVVT Confirm Interp Factor V Activity POC ABG pH POC ABG pCO2 POC ABG pO2 ABG pO2 ABG HCO3 ABG Base Excess ABG Hemoglobin Oxyhemoglobin Sodium 135 L Potassium 2.9 L* Chloride 97.2 L Carbon Dioxide 19 L BUN Creatinine 1.7 H Glucose 170 H POC Glucose 152 H Lactic Acid Calcium Phosphorus Magnesium Direct Bilirubin AST ALT Alkaline Phosphatase Lactate Dehydrogenase Troponin T C-Reactive Protein Total Protein Albumin Prealbumin Triglycerides 160 H Cholesterol LDL Cholesterol Direct HDL Cholesterol 31 L PTH Intact Urine pH Urine WBC (Auto) Urine Creatinine Urine Total Protein Fluid Total Protein Vancomycin Trough Rheumatoid Factor Complement C4 Miscellaneous Test Crossmatch 09/04/16 09/04/16 09/04/16 11:34 17:46 23:29 WBC RBC Hgb Hct MCV MCH MCHC RDW Plt Count Lymph % (Auto) [place] % (Auto) Lymph # [place] # Baso # Seg Neutrophils % Seg Neuts % (Manual) Lymphocytes % (Manual) Monocytes % (Manual) Eosinophils % (Manual) Basophils % (Manual) Nucleated RBC % Seg Neutrophils # Seg Neutrophils # Man Lymphocytes # (Manual) Monocytes # (Manual) Eosinophils # (Manual) Basophils # (Manual) PT INR Fibrinogen dRVVT Confirm Interp Factor V Activity POC ABG pH POC ABG pCO2 POC ABG pO2 ABG pO2 ABG HCO3 ABG Base Excess ABG Hemoglobin Oxyhemoglobin Sodium Potassium Chloride Carbon Dioxide BUN Creatinine Glucose POC Glucose 165 H 210 H 139 H Lactic Acid Calcium Phosphorus Magnesium Direct Bilirubin AST ALT Alkaline Phosphatase Lactate Dehydrogenase Troponin T C-Reactive Protein Total Protein Albumin Prealbumin Triglycerides Cholesterol LDL Cholesterol Direct HDL Cholesterol PTH Intact Urine pH Urine WBC (Auto) Urine Creatinine Urine Total Protein Fluid Total Protein Vancomycin Trough Rheumatoid Factor Complement C4 Miscellaneous Test Crossmatch 09/05/16 09/05/16 09/05/16 04:05 04:05 05:38 WBC RBC Hgb Hct MCV 76 L D MCH 23 L MCHC RDW 17.8 H Plt Count Lymph % (Auto) [place] % (Auto) Lymph # [place] # Baso # Seg Neutrophils % Seg Neuts % (Manual) Lymphocytes % (Manual) Monocytes % (Manual) Eosinophils % (Manual) Basophils % (Manual) Nucleated RBC % Seg Neutrophils # Seg Neutrophils # Man Lymphocytes # (Manual) Monocytes # (Manual) Eosinophils # (Manual) Basophils # (Manual) PT INR Fibrinogen dRVVT Confirm Interp Factor V Activity POC ABG pH POC ABG pCO2 POC ABG pO2 ABG pO2 ABG HCO3 ABG Base Excess ABG Hemoglobin Oxyhemoglobin Sodium 134 L Potassium Chloride Carbon Dioxide 18 L BUN Creatinine 1.8 H Glucose 192 H POC Glucose 175 H Lactic Acid Calcium Phosphorus Magnesium Direct Bilirubin AST ALT Alkaline Phosphatase Lactate Dehydrogenase Troponin T C-Reactive Protein Total Protein Albumin Prealbumin Triglycerides Cholesterol LDL Cholesterol Direct HDL Cholesterol PTH Intact Urine pH Urine WBC (Auto) Urine Creatinine Urine Total Protein Fluid Total Protein Vancomycin Trough Rheumatoid Factor Complement C4 Miscellaneous Test Crossmatch 09/05/16 09/05/16 09/05/16 11:38 17:48 23:22 WBC RBC Hgb Hct MCV MCH MCHC RDW Plt Count Lymph % (Auto) [place] % (Auto) Lymph # [place] # Baso # Seg Neutrophils % Seg Neuts % (Manual) Lymphocytes % (Manual) Monocytes % (Manual) Eosinophils % (Manual) Basophils % (Manual) Nucleated RBC % Seg Neutrophils # Seg Neutrophils # Man Lymphocytes # (Manual) Monocytes # (Manual) Eosinophils # (Manual) Basophils # (Manual) PT INR Fibrinogen dRVVT Confirm Interp Factor V Activity POC ABG pH POC ABG pCO2 POC ABG pO2 ABG pO2 ABG HCO3 ABG Base Excess ABG Hemoglobin Oxyhemoglobin Sodium Potassium Chloride Carbon Dioxide BUN Creatinine Glucose POC Glucose 164 H 186 H 195 H Lactic Acid Calcium Phosphorus Magnesium Direct Bilirubin AST ALT Alkaline Phosphatase Lactate Dehydrogenase Troponin T C-Reactive Protein Total Protein Albumin Prealbumin Triglycerides Cholesterol LDL Cholesterol Direct HDL Cholesterol PTH Intact Urine pH Urine WBC (Auto) Urine Creatinine Urine Total Protein Fluid Total Protein Vancomycin Trough Rheumatoid Factor Complement C4 Miscellaneous Test Crossmatch 09/06/16 09/06/16 09/06/16 04:12 05:59 07:32 WBC RBC Hgb Hct MCV MCH MCHC RDW Plt Count Lymph % (Auto) [place] % (Auto) Lymph # [place] # Baso # Seg Neutrophils % Seg Neuts % (Manual) Lymphocytes % (Manual) Monocytes % (Manual) Eosinophils % (Manual) Basophils % (Manual) Nucleated RBC % Seg Neutrophils # Seg Neutrophils # Man Lymphocytes # (Manual) Monocytes # (Manual) Eosinophils # (Manual) Basophils # (Manual) PT INR Fibrinogen dRVVT Confirm Interp Factor V Activity POC ABG pH 7.514 H POC ABG pCO2 29.1 L POC ABG pO2 72 L ABG pO2 ABG HCO3 ABG Base Excess ABG Hemoglobin Oxyhemoglobin Sodium 133 L Potassium 3.4 L Chloride 94.9 L Carbon Dioxide 19 L BUN 30 H Creatinine 2.1 H Glucose 139 H POC Glucose 146 H Lactic Acid Calcium Phosphorus Magnesium Direct Bilirubin AST ALT Alkaline Phosphatase Lactate Dehydrogenase Troponin T C-Reactive Protein Total Protein Albumin Prealbumin Triglycerides Cholesterol LDL Cholesterol Direct HDL Cholesterol PTH Intact Urine pH Urine WBC (Auto) Urine Creatinine Urine Total Protein Fluid Total Protein Vancomycin Trough Rheumatoid Factor Complement C4 Miscellaneous Test Crossmatch 09/06/16 09/06/16 09/06/16 11:57 17:58 19:02 WBC RBC Hgb Hct MCV MCH MCHC RDW Plt Count Lymph % (Auto) [place] % (Auto) Lymph # [place] # Baso # Seg Neutrophils % Seg Neuts % (Manual) Lymphocytes % (Manual) Monocytes % (Manual) Eosinophils % (Manual) Basophils % (Manual) Nucleated RBC % Seg Neutrophils # Seg Neutrophils # Man Lymphocytes # (Manual) Monocytes # (Manual) Eosinophils # (Manual) Basophils # (Manual) PT INR Fibrinogen dRVVT Confirm Interp Factor V Activity POC ABG pH 7.465 H POC ABG pCO2 32.0 L POC ABG pO2 ABG pO2 ABG HCO3 ABG Base Excess ABG Hemoglobin Oxyhemoglobin Sodium Potassium Chloride Carbon Dioxide BUN Creatinine Glucose POC Glucose 165 H 160 H Lactic Acid Calcium Phosphorus Magnesium Direct Bilirubin AST ALT Alkaline Phosphatase Lactate Dehydrogenase Troponin T C-Reactive Protein Total Protein Albumin Prealbumin Triglycerides Cholesterol LDL Cholesterol Direct HDL Cholesterol PTH Intact Urine pH Urine WBC (Auto) Urine Creatinine Urine Total Protein Fluid Total Protein Vancomycin Trough Rheumatoid Factor Complement C4 Miscellaneous Test Crossmatch 09/06/16 09/07/16 09/07/16 23:45 02:47 02:47 WBC RBC Hgb Hct MCV MCH MCHC RDW Plt Count Lymph % (Auto) [place] % (Auto) Lymph # [place] # Baso # Seg Neutrophils % Seg Neuts % (Manual) Lymphocytes % (Manual) Monocytes % (Manual) Eosinophils % (Manual) Basophils % (Manual) Nucleated RBC % Seg Neutrophils # Seg Neutrophils # Man Lymphocytes # (Manual) Monocytes # (Manual) Eosinophils # (Manual) Basophils # (Manual) PT INR Fibrinogen dRVVT Confirm Interp Factor V Activity POC ABG pH POC ABG pCO2 POC ABG pO2 ABG pO2 ABG HCO3 ABG Base Excess ABG Hemoglobin Oxyhemoglobin Sodium Potassium Chloride Carbon Dioxide BUN Creatinine Glucose POC Glucose 204 H Lactic Acid Calcium Phosphorus Magnesium Direct Bilirubin AST ALT Alkaline Phosphatase Lactate Dehydrogenase Troponin T C-Reactive Protein Total Protein Albumin Prealbumin Triglycerides Cholesterol LDL Cholesterol Direct HDL Cholesterol PTH Intact Urine pH Urine WBC (Auto) 68.0 H Urine Creatinine 106.1 H Urine Total Protein Fluid Total Protein Vancomycin Trough Rheumatoid Factor Complement C4 Miscellaneous Test Crossmatch 09/07/16 09/07/16 09/07/16 04:50 06:19 06:39 WBC RBC Hgb Hct MCV MCH MCHC RDW Plt Count Lymph % (Auto) [place] % (Auto) Lymph # [place] # Baso # Seg Neutrophils % Seg Neuts % (Manual) Lymphocytes % (Manual) Monocytes % (Manual) Eosinophils % (Manual) Basophils % (Manual) Nucleated RBC % Seg Neutrophils # Seg Neutrophils # Man Lymphocytes # (Manual) Monocytes # (Manual) Eosinophils # (Manual) Basophils # (Manual) PT INR Fibrinogen dRVVT Confirm Interp Factor V Activity POC ABG pH 7.457 H POC ABG pCO2 32.1 L POC ABG pO2 76 L ABG pO2 ABG HCO3 ABG Base Excess ABG Hemoglobin Oxyhemoglobin Sodium 132 L Potassium Chloride 94.7 L Carbon Dioxide BUN 53 H Creatinine 2.9 H Glucose 151 H POC Glucose 149 H Lactic Acid Calcium Phosphorus Magnesium Direct Bilirubin AST ALT Alkaline Phosphatase Lactate Dehydrogenase Troponin T C-Reactive Protein Total Protein Albumin Prealbumin Triglycerides Cholesterol LDL Cholesterol Direct HDL Cholesterol PTH Intact Urine pH Urine WBC (Auto) Urine Creatinine Urine Total Protein Fluid Total Protein Vancomycin Trough Rheumatoid Factor Complement C4 Miscellaneous Test Crossmatch 09/07/16 09/07/16 09/07/16 09:20 11:43 11:43 WBC 19.4 H RBC Hgb 8.3 L Hct 26.4 L D MCV 72 L D MCH 22 L MCHC RDW 17.9 H Plt Count Lymph % (Auto) 8.5 L [place] % (Auto) Lymph # [place] # 1.0 H Baso # Seg Neutrophils % 85.8 H Seg Neuts % (Manual) Lymphocytes % (Manual) Monocytes % (Manual) Eosinophils % (Manual) Basophils % (Manual) Nucleated RBC % Seg Neutrophils # 16.6 H Seg Neutrophils # Man Lymphocytes # (Manual) Monocytes # (Manual) Eosinophils # (Manual) Basophils # (Manual) PT INR Fibrinogen dRVVT Confirm Interp Factor V Activity POC ABG pH POC ABG pCO2 POC ABG pO2 ABG pO2 ABG HCO3 ABG Base Excess ABG Hemoglobin Oxyhemoglobin Sodium 134 L Potassium Chloride 97.2 L Carbon Dioxide 20 L BUN 58 H Creatinine 2.9 H Glucose 147 H POC Glucose Lactic Acid Calcium Phosphorus 2.40 L Magnesium 2.40 H Direct Bilirubin AST ALT Alkaline Phosphatase Lactate Dehydrogenase Troponin T C-Reactive Protein Total Protein 5.8 L Albumin 2.2 L Prealbumin Triglycerides Cholesterol LDL Cholesterol Direct HDL Cholesterol PTH Intact Urine pH Urine WBC (Auto) Urine Creatinine Urine Total Protein Fluid Total Protein Vancomycin Trough Rheumatoid Factor Complement C4 58 H Miscellaneous Test Crossmatch 09/07/16 09/07/16 09/07/16 11:50 16:00 17:31 WBC RBC Hgb Hct MCV MCH MCHC RDW Plt Count Lymph % (Auto) [place] % (Auto) Lymph # [place] # Baso # Seg Neutrophils % Seg Neuts % (Manual) Lymphocytes % (Manual) Monocytes % (Manual) Eosinophils % (Manual) Basophils % (Manual) Nucleated RBC % Seg Neutrophils # Seg Neutrophils # Man Lymphocytes # (Manual) Monocytes # (Manual) Eosinophils # (Manual) Basophils # (Manual) PT INR Fibrinogen dRVVT Confirm Interp Factor V Activity POC ABG pH POC ABG pCO2 POC ABG pO2 158 H ABG pO2 ABG HCO3 ABG Base Excess ABG Hemoglobin Oxyhemoglobin Sodium Potassium Chloride Carbon Dioxide BUN Creatinine Glucose POC Glucose 175 H Lactic Acid Calcium Phosphorus Magnesium Direct Bilirubin AST ALT Alkaline Phosphatase Lactate Dehydrogenase Troponin T C-Reactive Protein Total Protein Albumin Prealbumin Triglycerides Cholesterol LDL Cholesterol Direct HDL Cholesterol PTH Intact Urine pH Urine WBC (Auto) Urine Creatinine 66.3 H Urine Total Protein Fluid Total Protein Vancomycin Trough Rheumatoid Factor Complement C4 Miscellaneous Test Crossmatch 09/07/16 09/08/16 09/08/16 23:50 05:46 06:18 WBC 17.8 H RBC 3.58 L Hgb 8.1 L Hct 25.5 L MCV 71 L MCH 23 L MCHC RDW 18.4 H Plt Count Lymph % (Auto) [place] % (Auto) Lymph # [place] # Baso # Seg Neutrophils % Seg Neuts % (Manual) 92.0 H Lymphocytes % (Manual) 6.0 L Monocytes % (Manual) Eosinophils % (Manual) Basophils % (Manual) Nucleated RBC % Seg Neutrophils # Seg Neutrophils # Man 16.4 H Lymphocytes # (Manual) 1.1 L Monocytes # (Manual) Eosinophils # (Manual) Basophils # (Manual) PT INR Fibrinogen dRVVT Confirm Interp Factor V Activity POC ABG pH POC ABG pCO2 34.3 L POC ABG pO2 71 L ABG pO2 ABG HCO3 ABG Base Excess ABG Hemoglobin Oxyhemoglobin Sodium Potassium Chloride Carbon Dioxide BUN Creatinine Glucose POC Glucose 216 H Lactic Acid Calcium Phosphorus Magnesium Direct Bilirubin AST ALT Alkaline Phosphatase Lactate Dehydrogenase Troponin T C-Reactive Protein Total Protein Albumin Prealbumin Triglycerides Cholesterol LDL Cholesterol Direct HDL Cholesterol PTH Intact Urine pH Urine WBC (Auto) Urine Creatinine Urine Total Protein Fluid Total Protein Vancomycin Trough Rheumatoid Factor Complement C4 Miscellaneous Test Crossmatch 09/08/16 09/08/16 09/08/16 06:18 06:51 10:55 WBC RBC Hgb Hct MCV MCH MCHC RDW Plt Count Lymph % (Auto) [place] % (Auto) Lymph # [place] # Baso # Seg Neutrophils % Seg Neuts % (Manual) Lymphocytes % (Manual) Monocytes % (Manual) Eosinophils % (Manual) Basophils % (Manual) Nucleated RBC % Seg Neutrophils # Seg Neutrophils # Man Lymphocytes # (Manual) Monocytes # (Manual) Eosinophils # (Manual) Basophils # (Manual) PT INR Fibrinogen dRVVT Confirm Interp Factor V Activity POC ABG pH POC ABG pCO2 POC ABG pO2 ABG pO2 ABG HCO3 ABG Base Excess ABG Hemoglobin Oxyhemoglobin Sodium 133 L Potassium Chloride 96.9 L Carbon Dioxide 20 L BUN 63 H Creatinine 2.7 H Glucose 195 H POC Glucose 204 H 169 H Lactic Acid Calcium Phosphorus Magnesium Direct Bilirubin AST ALT Alkaline Phosphatase Lactate Dehydrogenase Troponin T C-Reactive Protein Total Protein Albumin Prealbumin Triglycerides Cholesterol LDL Cholesterol Direct HDL Cholesterol PTH Intact Urine pH Urine WBC (Auto) Urine Creatinine Urine Total Protein Fluid Total Protein Vancomycin Trough Rheumatoid Factor Complement C4 Miscellaneous Test Crossmatch 09/08/16 09/08/16 09/08/16 11:48 11:48 11:48 WBC RBC Hgb Hct MCV MCH MCHC RDW Plt Count Lymph % (Auto) [place] % (Auto) Lymph # [place] # Baso # Seg Neutrophils % Seg Neuts % (Manual) Lymphocytes % (Manual) Monocytes % (Manual) Eosinophils % (Manual) Basophils % (Manual) Nucleated RBC % Seg Neutrophils # Seg Neutrophils # Man Lymphocytes # (Manual) Monocytes # (Manual) Eosinophils # (Manual) Basophils # (Manual) PT INR Fibrinogen 750 H dRVVT Confirm Interp Factor V Activity POC ABG pH POC ABG pCO2 POC ABG pO2 ABG pO2 ABG HCO3 ABG Base Excess ABG Hemoglobin Oxyhemoglobin Sodium Potassium Chloride Carbon Dioxide BUN Creatinine Glucose POC Glucose Lactic Acid Calcium Phosphorus Magnesium Direct Bilirubin AST ALT Alkaline Phosphatase Lactate Dehydrogenase Troponin T C-Reactive Protein 15.70 H Total Protein Albumin Prealbumin Triglycerides Cholesterol LDL Cholesterol Direct HDL Cholesterol PTH Intact Urine pH Urine WBC (Auto) Urine Creatinine Urine Total Protein Fluid Total Protein Vancomycin Trough Rheumatoid Factor 24 H Complement C4 Miscellaneous Test Crossmatch 09/08/16 09/08/16 09/09/16 15:35 18:25 00:24 WBC RBC Hgb Hct MCV MCH MCHC RDW Plt Count Lymph % (Auto) [place] % (Auto) Lymph # [place] # Baso # Seg Neutrophils % Seg Neuts % (Manual) Lymphocytes % (Manual) Monocytes % (Manual) Eosinophils % (Manual) Basophils % (Manual) Nucleated RBC % Seg Neutrophils # Seg Neutrophils # Man Lymphocytes # (Manual) Monocytes # (Manual) Eosinophils # (Manual) Basophils # (Manual) PT INR Fibrinogen dRVVT Confirm Interp Factor V Activity 182 H POC ABG pH POC ABG pCO2 POC ABG pO2 ABG pO2 ABG HCO3 ABG Base Excess ABG Hemoglobin Oxyhemoglobin Sodium Potassium Chloride Carbon Dioxide BUN Creatinine Glucose POC Glucose 184 H 216 H Lactic Acid Calcium Phosphorus Magnesium Direct Bilirubin AST ALT Alkaline Phosphatase Lactate Dehydrogenase Troponin T C-Reactive Protein Total Protein Albumin Prealbumin Triglycerides Cholesterol LDL Cholesterol Direct HDL Cholesterol PTH Intact Urine pH Urine WBC (Auto) Urine Creatinine Urine Total Protein Fluid Total Protein Vancomycin Trough Rheumatoid Factor Complement C4 Miscellaneous Test Crossmatch 09/09/16 09/09/16 09/09/16 03:00 03:00 04:04 WBC 27.9 H RBC Hgb 8.7 L Hct 28.1 L MCV 72 L MCH 22 L MCHC RDW 18.4 H Plt Count 485 H Lymph % (Auto) [place] % (Auto) Lymph # [place] # Baso # Seg Neutrophils % Seg Neuts % (Manual) 77.0 H Lymphocytes % (Manual) 9.0 L Monocytes % (Manual) Eosinophils % (Manual) Basophils % (Manual) Nucleated RBC % Seg Neutrophils # Seg Neutrophils # Man 21.5 H Lymphocytes # (Manual) Monocytes # (Manual) 2.0 H Eosinophils # (Manual) Basophils # (Manual) PT INR Fibrinogen dRVVT Confirm Interp Factor V Activity POC ABG pH POC ABG pCO2 POC ABG pO2 121 H ABG pO2 ABG HCO3 ABG Base Excess ABG Hemoglobin Oxyhemoglobin Sodium 135 L Potassium Chloride 96.3 L Carbon Dioxide 21 L BUN 83 H Creatinine 3.0 H Glucose 135 H POC Glucose Lactic Acid Calcium Phosphorus Magnesium Direct Bilirubin AST ALT Alkaline Phosphatase Lactate Dehydrogenase Troponin T C-Reactive Protein Total Protein Albumin Prealbumin Triglycerides Cholesterol LDL Cholesterol Direct HDL Cholesterol PTH Intact Urine pH Urine WBC (Auto) Urine Creatinine Urine Total Protein Fluid Total Protein Vancomycin Trough Rheumatoid Factor Complement C4 Miscellaneous Test Crossmatch 09/09/16 09/09/16 09/09/16 05:41 11:55 14:13 WBC RBC Hgb Hct MCV MCH MCHC RDW Plt Count Lymph % (Auto) [place] % (Auto) Lymph # [place] # Baso # Seg Neutrophils % Seg Neuts % (Manual) Lymphocytes % (Manual) Monocytes % (Manual) Eosinophils % (Manual) Basophils % (Manual) Nucleated RBC % Seg Neutrophils # Seg Neutrophils # Man Lymphocytes # (Manual) Monocytes # (Manual) Eosinophils # (Manual) Basophils # (Manual) PT INR Fibrinogen dRVVT Confirm Interp Factor V Activity POC ABG pH POC ABG pCO2 POC ABG pO2 ABG pO2 ABG HCO3 ABG Base Excess ABG Hemoglobin Oxyhemoglobin Sodium Potassium Chloride Carbon Dioxide BUN Creatinine Glucose POC Glucose 155 H 186 H Lactic Acid Calcium Phosphorus Magnesium Direct Bilirubin AST ALT Alkaline Phosphatase Lactate Dehydrogenase Troponin T C-Reactive Protein Total Protein Albumin Prealbumin Triglycerides Cholesterol LDL Cholesterol Direct HDL Cholesterol PTH Intact Urine pH Urine WBC (Auto) 25.0 H Urine Creatinine Urine Total Protein Fluid Total Protein Vancomycin Trough Rheumatoid Factor Complement C4 Miscellaneous Test Crossmatch 09/09/16 09/09/16 09/10/16 17:33 23:13 05:09 WBC RBC Hgb Hct MCV MCH MCHC RDW Plt Count Lymph % (Auto) [place] % (Auto) Lymph # [place] # Baso # Seg Neutrophils % Seg Neuts % (Manual) Lymphocytes % (Manual) Monocytes % (Manual) Eosinophils % (Manual) Basophils % (Manual) Nucleated RBC % Seg Neutrophils # Seg Neutrophils # Man Lymphocytes # (Manual) Monocytes # (Manual) Eosinophils # (Manual) Basophils # (Manual) PT INR Fibrinogen dRVVT Confirm Interp Factor V Activity POC ABG pH POC ABG pCO2 POC ABG pO2 74 L ABG pO2 ABG HCO3 ABG Base Excess ABG Hemoglobin Oxyhemoglobin Sodium Potassium Chloride Carbon Dioxide BUN Creatinine Glucose POC Glucose 211 H 215 H Lactic Acid Calcium Phosphorus Magnesium Direct Bilirubin AST ALT Alkaline Phosphatase Lactate Dehydrogenase Troponin T C-Reactive Protein Total Protein Albumin Prealbumin Triglycerides Cholesterol LDL Cholesterol Direct HDL Cholesterol PTH Intact Urine pH Urine WBC (Auto) Urine Creatinine Urine Total Protein Fluid Total Protein Vancomycin Trough Rheumatoid Factor Complement C4 Miscellaneous Test Crossmatch 09/10/16 09/10/16 09/10/16 05:17 05:17 11:31 WBC 15.8 H RBC 3.25 L Hgb 7.3 L Hct 22.9 L MCV 71 L MCH 23 L MCHC RDW 18.4 H Plt Count Lymph % (Auto) [place] % (Auto) Lymph # [place] # Baso # Seg Neutrophils % Seg Neuts % (Manual) 91.0 H Lymphocytes % (Manual) 4.0 L Monocytes % (Manual) Eosinophils % (Manual) Basophils % (Manual) Nucleated RBC % Seg Neutrophils # Seg Neutrophils # Man 14.4 H Lymphocytes # (Manual) 0.6 L Monocytes # (Manual) Eosinophils # (Manual) Basophils # (Manual) PT INR Fibrinogen dRVVT Confirm Interp Factor V Activity POC ABG pH POC ABG pCO2 POC ABG pO2 ABG pO2 ABG HCO3 ABG Base Excess ABG Hemoglobin Oxyhemoglobin Sodium Potassium Chloride Carbon Dioxide 21 L BUN 93 H Creatinine 2.9 H Glucose 146 H POC Glucose 188 H Lactic Acid Calcium 8.1 L Phosphorus Magnesium Direct Bilirubin AST ALT Alkaline Phosphatase Lactate Dehydrogenase Troponin T C-Reactive Protein Total Protein Albumin Prealbumin Triglycerides Cholesterol LDL Cholesterol Direct HDL Cholesterol PTH Intact Urine pH Urine WBC (Auto) Urine Creatinine Urine Total Protein Fluid Total Protein Vancomycin Trough Rheumatoid Factor Complement C4 Miscellaneous Test Crossmatch 09/10/16 09/10/16 09/10/16 13:17 17:20 23:32 WBC RBC Hgb Hct MCV MCH MCHC RDW Plt Count Lymph % (Auto) [place] % (Auto) Lymph # [place] # Baso # Seg Neutrophils % Seg Neuts % (Manual) Lymphocytes % (Manual) Monocytes % (Manual) Eosinophils % (Manual) Basophils % (Manual) Nucleated RBC % Seg Neutrophils # Seg Neutrophils # Man Lymphocytes # (Manual) Monocytes # (Manual) Eosinophils # (Manual) Basophils # (Manual) PT INR Fibrinogen dRVVT Confirm Interp Factor V Activity POC ABG pH POC ABG pCO2 POC ABG pO2 ABG pO2 ABG HCO3 ABG Base Excess ABG Hemoglobin Oxyhemoglobin Sodium Potassium Chloride Carbon Dioxide BUN Creatinine Glucose POC Glucose 199 H 186 H Lactic Acid Calcium Phosphorus Magnesium Direct Bilirubin AST ALT Alkaline Phosphatase Lactate Dehydrogenase Troponin T C-Reactive Protein Total Protein Albumin Prealbumin Triglycerides Cholesterol LDL Cholesterol Direct HDL Cholesterol PTH Intact Urine pH Urine WBC (Auto) Urine Creatinine Urine Total Protein Fluid Total Protein Vancomycin Trough Rheumatoid Factor Complement C4 Miscellaneous Test Crossmatch See Detail 09/11/16 09/11/16 09/11/16 05:10 05:10 05:17 WBC 28.4 H RBC Hgb 9.2 L Hct 29.3 L D MCV 73 L MCH 23 L MCHC RDW 18.9 H Plt Count 452 H Lymph % (Auto) [place] % (Auto) Lymph # [place] # Baso # Seg Neutrophils % Seg Neuts % (Manual) 89.5 H Lymphocytes % (Manual) 2.0 L Monocytes % (Manual) Eosinophils % (Manual) Basophils % (Manual) Nucleated RBC % Seg Neutrophils # Seg Neutrophils # Man 25.4 H Lymphocytes # (Manual) 0.6 L Monocytes # (Manual) 1.3 H Eosinophils # (Manual) Basophils # (Manual) PT INR Fibrinogen dRVVT Confirm Interp Factor V Activity POC ABG pH POC ABG pCO2 POC ABG pO2 ABG pO2 ABG HCO3 ABG Base Excess ABG Hemoglobin Oxyhemoglobin Sodium 136 L Potassium Chloride Carbon Dioxide 18 L BUN 107 H Creatinine 2.6 H Glucose 187 H POC Glucose 230 H Lactic Acid Calcium 8.3 L Phosphorus Magnesium Direct Bilirubin AST ALT Alkaline Phosphatase Lactate Dehydrogenase Troponin T C-Reactive Protein Total Protein Albumin Prealbumin Triglycerides Cholesterol LDL Cholesterol Direct HDL Cholesterol PTH Intact Urine pH Urine WBC (Auto) Urine Creatinine Urine Total Protein Fluid Total Protein Vancomycin Trough Rheumatoid Factor Complement C4 Miscellaneous Test Crossmatch 09/11/16 09/11/16 09/11/16 05:55 12:02 17:32 WBC RBC Hgb Hct MCV MCH MCHC RDW Plt Count Lymph % (Auto) [place] % (Auto) Lymph # [place] # Baso # Seg Neutrophils % Seg Neuts % (Manual) Lymphocytes % (Manual) Monocytes % (Manual) Eosinophils % (Manual) Basophils % (Manual) Nucleated RBC % Seg Neutrophils # Seg Neutrophils # Man Lymphocytes # (Manual) Monocytes # (Manual) Eosinophils # (Manual) Basophils # (Manual) PT INR Fibrinogen dRVVT Confirm Interp Factor V Activity POC ABG pH POC ABG pCO2 33.8 L POC ABG pO2 ABG pO2 ABG HCO3 ABG Base Excess ABG Hemoglobin Oxyhemoglobin Sodium Potassium Chloride Carbon Dioxide BUN Creatinine Glucose POC Glucose 191 H 239 H Lactic Acid Calcium Phosphorus Magnesium Direct Bilirubin AST ALT Alkaline Phosphatase Lactate Dehydrogenase Troponin T C-Reactive Protein Total Protein Albumin Prealbumin Triglycerides Cholesterol LDL Cholesterol Direct HDL Cholesterol PTH Intact Urine pH Urine WBC (Auto) Urine Creatinine Urine Total Protein Fluid Total Protein Vancomycin Trough Rheumatoid Factor Complement C4 Miscellaneous Test Crossmatch 09/11/16 09/12/16 09/12/16 23:52 05:09 05:32 WBC RBC Hgb Hct MCV MCH MCHC RDW Plt Count Lymph % (Auto) [place] % (Auto) Lymph # [place] # Baso # Seg Neutrophils % Seg Neuts % (Manual) Lymphocytes % (Manual) Monocytes % (Manual) Eosinophils % (Manual) Basophils % (Manual) Nucleated RBC % Seg Neutrophils # Seg Neutrophils # Man Lymphocytes # (Manual) Monocytes # (Manual) Eosinophils # (Manual) Basophils # (Manual) PT INR Fibrinogen dRVVT Confirm Interp Factor V Activity POC ABG pH POC ABG pCO2 34.6 L POC ABG pO2 ABG pO2 ABG HCO3 ABG Base Excess ABG Hemoglobin Oxyhemoglobin Sodium Potassium Chloride Carbon Dioxide BUN Creatinine Glucose POC Glucose 265 H 184 H Lactic Acid Calcium Phosphorus Magnesium Direct Bilirubin AST ALT Alkaline Phosphatase Lactate Dehydrogenase Troponin T C-Reactive Protein Total Protein Albumin Prealbumin Triglycerides Cholesterol LDL Cholesterol Direct HDL Cholesterol PTH Intact Urine pH Urine WBC (Auto) Urine Creatinine Urine Total Protein Fluid Total Protein Vancomycin Trough Rheumatoid Factor Complement C4 Miscellaneous Test Crossmatch 09/12/16 09/12/16 09/12/16 06:45 06:45 07:22 WBC 31.7 H RBC 3.54 L Hgb 8.3 L Hct 25.9 L MCV 73 L MCH 23 L MCHC RDW 18.9 H Plt Count Lymph % (Auto) [place] % (Auto) Lymph # [place] # Baso # Seg Neutrophils % Seg Neuts % (Manual) 88.5 H Lymphocytes % (Manual) 4.5 L Monocytes % (Manual) Eosinophils % (Manual) Basophils % (Manual) Nucleated RBC % Seg Neutrophils # Seg Neutrophils # Man 28.1 H Lymphocytes # (Manual) Monocytes # (Manual) 1.0 H Eosinophils # (Manual) Basophils # (Manual) PT INR Fibrinogen dRVVT Confirm Interp Factor V Activity POC ABG pH POC ABG pCO2 POC ABG pO2 ABG pO2 ABG HCO3 ABG Base Excess ABG Hemoglobin Oxyhemoglobin Sodium Potassium Chloride Carbon Dioxide 20 L BUN 115 H Creatinine 2.7 H Glucose 165 H POC Glucose Lactic Acid Calcium 8.0 L Phosphorus Magnesium Direct Bilirubin AST ALT Alkaline Phosphatase Lactate Dehydrogenase Troponin T C-Reactive Protein Total Protein Albumin Prealbumin Triglycerides 217 H Cholesterol LDL Cholesterol Direct HDL Cholesterol PTH Intact Urine pH Urine WBC (Auto) Urine Creatinine Urine Total Protein Fluid Total Protein Vancomycin Trough Rheumatoid Factor Complement C4 Miscellaneous Test Crossmatch 09/12/16 09/12/16 09/12/16 07:22 09:59 12:21 WBC RBC Hgb Hct MCV MCH MCHC RDW Plt Count Lymph % (Auto) [place] % (Auto) Lymph # [place] # Baso # Seg Neutrophils % Seg Neuts % (Manual) Lymphocytes % (Manual) Monocytes % (Manual) Eosinophils % (Manual) Basophils % (Manual) Nucleated RBC % Seg Neutrophils # Seg Neutrophils # Man Lymphocytes # (Manual) Monocytes # (Manual) Eosinophils # (Manual) Basophils # (Manual) PT INR Fibrinogen dRVVT Confirm Interp Positive H Factor V Activity POC ABG pH POC ABG pCO2 POC ABG pO2 ABG pO2 ABG HCO3 ABG Base Excess ABG Hemoglobin Oxyhemoglobin Sodium Potassium Chloride Carbon Dioxide BUN Creatinine Glucose POC Glucose 224 H Lactic Acid Calcium Phosphorus Magnesium Direct Bilirubin AST ALT Alkaline Phosphatase Lactate Dehydrogenase Troponin T C-Reactive Protein 1.70 H Total Protein Albumin Prealbumin Triglycerides Cholesterol LDL Cholesterol Direct HDL Cholesterol PTH Intact Urine pH Urine WBC (Auto) Urine Creatinine Urine Total Protein Fluid Total Protein Vancomycin Trough Rheumatoid Factor Complement C4 Miscellaneous Test Crossmatch 09/12/16 09/12/16 09/13/16 16:51 23:28 04:00 WBC 45.0 H* RBC Hgb 9.4 L Hct MCV 75 L MCH 23 L MCHC RDW 19.0 H Plt Count 470 H Lymph % (Auto) [place] % (Auto) Lymph # [place] # Baso # Seg Neutrophils % Seg Neuts % (Manual) 89.0 H Lymphocytes % (Manual) 5.0 L Monocytes % (Manual) Eosinophils % (Manual) Basophils % (Manual) Nucleated RBC % Seg Neutrophils # Seg Neutrophils # Man 40.1 H Lymphocytes # (Manual) Monocytes # (Manual) Eosinophils # (Manual) Basophils # (Manual) PT INR Fibrinogen dRVVT Confirm Interp Factor V Activity POC ABG pH POC ABG pCO2 POC ABG pO2 ABG pO2 ABG HCO3 ABG Base Excess ABG Hemoglobin Oxyhemoglobin Sodium Potassium Chloride Carbon Dioxide BUN Creatinine Glucose POC Glucose 169 H 150 H Lactic Acid Calcium Phosphorus Magnesium Direct Bilirubin AST ALT Alkaline Phosphatase Lactate Dehydrogenase Troponin T C-Reactive Protein Total Protein Albumin Prealbumin Triglycerides Cholesterol LDL Cholesterol Direct HDL Cholesterol PTH Intact Urine pH Urine WBC (Auto) Urine Creatinine Urine Total Protein Fluid Total Protein Vancomycin Trough Rheumatoid Factor Complement C4 Miscellaneous Test Crossmatch 09/13/16 09/13/16 09/13/16 04:00 11:26 17:31 WBC RBC Hgb Hct MCV MCH MCHC RDW Plt Count Lymph % (Auto) [place] % (Auto) Lymph # [place] # Baso # Seg Neutrophils % Seg Neuts % (Manual) Lymphocytes % (Manual) Monocytes % (Manual) Eosinophils % (Manual) Basophils % (Manual) Nucleated RBC % Seg Neutrophils # Seg Neutrophils # Man Lymphocytes # (Manual) Monocytes # (Manual) Eosinophils # (Manual) Basophils # (Manual) PT INR Fibrinogen dRVVT Confirm Interp Factor V Activity POC ABG pH POC ABG pCO2 POC ABG pO2 ABG pO2 ABG HCO3 ABG Base Excess ABG Hemoglobin Oxyhemoglobin Sodium Potassium Chloride Carbon Dioxide 20 L BUN 116 H Creatinine 3.0 H Glucose 172 H POC Glucose 140 H 183 H Lactic Acid Calcium Phosphorus Magnesium Direct Bilirubin AST ALT Alkaline Phosphatase Lactate Dehydrogenase Troponin T C-Reactive Protein Total Protein 6.2 L Albumin 2.9 L Prealbumin Triglycerides Cholesterol LDL Cholesterol Direct HDL Cholesterol PTH Intact Urine pH Urine WBC (Auto) Urine Creatinine Urine Total Protein Fluid Total Protein Vancomycin Trough Rheumatoid Factor Complement C4 Miscellaneous Test Crossmatch 09/13/16 09/14/16 09/14/16 23:23 04:06 04:07 WBC 29.4 H RBC Hgb 8.9 L Hct 27.3 L MCV 75 L MCH 24 L MCHC RDW 19.1 H Plt Count Lymph % (Auto) [place] % (Auto) Lymph # [place] # Baso # Seg Neutrophils % Seg Neuts % (Manual) 84.0 H Lymphocytes % (Manual) 6.0 L Monocytes % (Manual) 9.0 H Eosinophils % (Manual) Basophils % (Manual) Nucleated RBC % Seg Neutrophils # Seg Neutrophils # Man 24.7 H Lymphocytes # (Manual) Monocytes # (Manual) 2.6 H Eosinophils # (Manual) Basophils # (Manual) PT INR Fibrinogen dRVVT Confirm Interp Factor V Activity POC ABG pH 7.342 L POC ABG pCO2 POC ABG pO2 116 H ABG pO2 ABG HCO3 ABG Base Excess ABG Hemoglobin Oxyhemoglobin Sodium Potassium Chloride Carbon Dioxide BUN Creatinine Glucose POC Glucose 154 H Lactic Acid Calcium Phosphorus Magnesium Direct Bilirubin AST ALT Alkaline Phosphatase Lactate Dehydrogenase Troponin T C-Reactive Protein Total Protein Albumin Prealbumin Triglycerides Cholesterol LDL Cholesterol Direct HDL Cholesterol PTH Intact Urine pH Urine WBC (Auto) Urine Creatinine Urine Total Protein Fluid Total Protein Vancomycin Trough Rheumatoid Factor Complement C4 Miscellaneous Test Crossmatch 09/14/16 09/14/16 09/14/16 04:07 05:29 12:19 WBC RBC Hgb Hct MCV MCH MCHC RDW Plt Count Lymph % (Auto) [place] % (Auto) Lymph # [place] # Baso # Seg Neutrophils % Seg Neuts % (Manual) Lymphocytes % (Manual) Monocytes % (Manual) Eosinophils % (Manual) Basophils % (Manual) Nucleated RBC % Seg Neutrophils # Seg Neutrophils # Man Lymphocytes # (Manual) Monocytes # (Manual) Eosinophils # (Manual) Basophils # (Manual) PT INR Fibrinogen dRVVT Confirm Interp Factor V Activity POC ABG pH POC ABG pCO2 POC ABG pO2 ABG pO2 ABG HCO3 ABG Base Excess ABG Hemoglobin Oxyhemoglobin Sodium 136 L Potassium Chloride Carbon Dioxide 18 L BUN 121 H Creatinine 2.8 H Glucose 214 H POC Glucose 239 H 181 H Lactic Acid Calcium Phosphorus Magnesium Direct Bilirubin AST ALT Alkaline Phosphatase Lactate Dehydrogenase Troponin T C-Reactive Protein Total Protein Albumin Prealbumin Triglycerides Cholesterol LDL Cholesterol Direct HDL Cholesterol PTH Intact Urine pH Urine WBC (Auto) Urine Creatinine Urine Total Protein Fluid Total Protein Vancomycin Trough Rheumatoid Factor Complement C4 Miscellaneous Test Crossmatch 09/14/16 09/14/16 09/15/16 18:12 23:37 05:00 WBC 26.1 H RBC 3.05 L Hgb 7.2 L Hct 22.9 L MCV 75 L MCH 24 L MCHC RDW 19.0 H Plt Count Lymph % (Auto) [place] % (Auto) Lymph # [place] # Baso # Seg Neutrophils % Seg Neuts % (Manual) Lymphocytes % (Manual) Monocytes % (Manual) Eosinophils % (Manual) Basophils % (Manual) Nucleated RBC % Seg Neutrophils # Seg Neutrophils # Man Lymphocytes # (Manual) Monocytes # (Manual) Eosinophils # (Manual) Basophils # (Manual) PT INR Fibrinogen dRVVT Confirm Interp Factor V Activity POC ABG pH POC ABG pCO2 POC ABG pO2 ABG pO2 ABG HCO3 ABG Base Excess ABG Hemoglobin Oxyhemoglobin Sodium Potassium Chloride Carbon Dioxide BUN Creatinine Glucose POC Glucose 266 H 154 H Lactic Acid Calcium Phosphorus Magnesium Direct Bilirubin AST ALT Alkaline Phosphatase Lactate Dehydrogenase Troponin T C-Reactive Protein Total Protein Albumin Prealbumin Triglycerides Cholesterol LDL Cholesterol Direct HDL Cholesterol PTH Intact Urine pH Urine WBC (Auto) Urine Creatinine Urine Total Protein Fluid Total Protein Vancomycin Trough Rheumatoid Factor Complement C4 Miscellaneous Test Crossmatch 09/15/16 09/15/16 09/15/16 05:00 05:17 12:45 WBC RBC Hgb Hct MCV MCH MCHC RDW Plt Count Lymph % (Auto) [place] % (Auto) Lymph # [place] # Baso # Seg Neutrophils % Seg Neuts % (Manual) Lymphocytes % (Manual) Monocytes % (Manual) Eosinophils % (Manual) Basophils % (Manual) Nucleated RBC % Seg Neutrophils # Seg Neutrophils # Man Lymphocytes # (Manual) Monocytes # (Manual) Eosinophils # (Manual) Basophils # (Manual) PT INR Fibrinogen dRVVT Confirm Interp Factor V Activity POC ABG pH POC ABG pCO2 POC ABG pO2 ABG pO2 ABG HCO3 ABG Base Excess ABG Hemoglobin Oxyhemoglobin Sodium Potassium 5.2 H Chloride Carbon Dioxide 18 L BUN 139 H Creatinine 3.7 H Glucose 227 H POC Glucose 226 H 244 H Lactic Acid Calcium 8.3 L Phosphorus Magnesium Direct Bilirubin AST ALT Alkaline Phosphatase Lactate Dehydrogenase Troponin T C-Reactive Protein Total Protein Albumin Prealbumin Triglycerides Cholesterol LDL Cholesterol Direct HDL Cholesterol PTH Intact Urine pH Urine WBC (Auto) Urine Creatinine Urine Total Protein Fluid Total Protein Vancomycin Trough Rheumatoid Factor Complement C4 Miscellaneous Test Crossmatch 09/15/16 09/15/16 09/15/16 14:32 17:33 23:35 WBC RBC Hgb Hct MCV MCH MCHC RDW Plt Count Lymph % (Auto) [place] % (Auto) Lymph # [place] # Baso # Seg Neutrophils % Seg Neuts % (Manual) Lymphocytes % (Manual) Monocytes % (Manual) Eosinophils % (Manual) Basophils % (Manual) Nucleated RBC % Seg Neutrophils # Seg Neutrophils # Man Lymphocytes # (Manual) Monocytes # (Manual) Eosinophils # (Manual) Basophils # (Manual) PT INR Fibrinogen dRVVT Confirm Interp Factor V Activity POC ABG pH POC ABG pCO2 27.7 L POC ABG pO2 120 H ABG pO2 ABG HCO3 ABG Base Excess ABG Hemoglobin Oxyhemoglobin Sodium Potassium Chloride Carbon Dioxide BUN Creatinine Glucose POC Glucose 232 H 167 H Lactic Acid Calcium Phosphorus Magnesium Direct Bilirubin AST ALT Alkaline Phosphatase Lactate Dehydrogenase Troponin T C-Reactive Protein Total Protein Albumin Prealbumin Triglycerides Cholesterol LDL Cholesterol Direct HDL Cholesterol PTH Intact Urine pH Urine WBC (Auto) Urine Creatinine Urine Total Protein Fluid Total Protein Vancomycin Trough Rheumatoid Factor Complement C4 Miscellaneous Test Crossmatch 09/16/16 09/16/16 09/16/16 03:58 10:27 10:27 WBC 19.0 H RBC 2.77 L Hgb 6.5 L Hct 20.9 L MCV 76 L MCH 23 L MCHC RDW 19.3 H Plt Count Lymph % (Auto) 11.0 L [place] % (Auto) Lymph # [place] # 1.1 H Baso # Seg Neutrophils % 82.5 H Seg Neuts % (Manual) Lymphocytes % (Manual) Monocytes % (Manual) Eosinophils % (Manual) Basophils % (Manual) Nucleated RBC % Seg Neutrophils # 15.7 H Seg Neutrophils # Man Lymphocytes # (Manual) Monocytes # (Manual) Eosinophils # (Manual) Basophils # (Manual) PT INR Fibrinogen dRVVT Confirm Interp Factor V Activity POC ABG pH POC ABG pCO2 POC ABG pO2 ABG pO2 ABG HCO3 ABG Base Excess ABG Hemoglobin Oxyhemoglobin Sodium Potassium Chloride 109.3 H Carbon Dioxide 18 L BUN 139 H Creatinine 4.1 H Glucose 144 H POC Glucose 146 H Lactic Acid Calcium 8.1 L Phosphorus Magnesium Direct Bilirubin AST ALT Alkaline Phosphatase Lactate Dehydrogenase Troponin T C-Reactive Protein Total Protein Albumin Prealbumin Triglycerides Cholesterol LDL Cholesterol Direct HDL Cholesterol PTH Intact Urine pH Urine WBC (Auto) Urine Creatinine Urine Total Protein Fluid Total Protein Vancomycin Trough Rheumatoid Factor Complement C4 Miscellaneous Test Crossmatch 09/16/16 09/16/16 09/16/16 12:04 12:10 13:55 WBC RBC Hgb Hct MCV MCH MCHC RDW Plt Count Lymph % (Auto) [place] % (Auto) Lymph # [place] # Baso # Seg Neutrophils % Seg Neuts % (Manual) Lymphocytes % (Manual) Monocytes % (Manual) Eosinophils % (Manual) Basophils % (Manual) Nucleated RBC % Seg Neutrophils # Seg Neutrophils # Man Lymphocytes # (Manual) Monocytes # (Manual) Eosinophils # (Manual) Basophils # (Manual) PT INR Fibrinogen dRVVT Confirm Interp Factor V Activity POC ABG pH POC ABG pCO2 32.9 L POC ABG pO2 ABG pO2 ABG HCO3 ABG Base Excess ABG Hemoglobin Oxyhemoglobin Sodium Potassium Chloride Carbon Dioxide BUN Creatinine Glucose POC Glucose 185 H Lactic Acid Calcium Phosphorus Magnesium Direct Bilirubin AST ALT Alkaline Phosphatase Lactate Dehydrogenase Troponin T C-Reactive Protein Total Protein Albumin Prealbumin Triglycerides Cholesterol LDL Cholesterol Direct HDL Cholesterol PTH Intact Urine pH Urine WBC (Auto) Urine Creatinine Urine Total Protein Fluid Total Protein Vancomycin Trough Rheumatoid Factor Complement C4 Miscellaneous Test Crossmatch See Detail 09/16/16 09/16/16 09/16/16 17:55 19:19 23:48 WBC RBC Hgb Hct MCV MCH MCHC RDW Plt Count Lymph % (Auto) [place] % (Auto) Lymph # [place] # Baso # Seg Neutrophils % Seg Neuts % (Manual) Lymphocytes % (Manual) Monocytes % (Manual) Eosinophils % (Manual) Basophils % (Manual) Nucleated RBC % Seg Neutrophils # Seg Neutrophils # Man Lymphocytes # (Manual) Monocytes # (Manual) Eosinophils # (Manual) Basophils # (Manual) PT INR Fibrinogen dRVVT Confirm Interp Factor V Activity POC ABG pH POC ABG pCO2 POC ABG pO2 ABG pO2 ABG HCO3 ABG Base Excess ABG Hemoglobin Oxyhemoglobin Sodium Potassium Chloride Carbon Dioxide BUN Creatinine Glucose POC Glucose 222 H 107 H Lactic Acid Calcium Phosphorus Magnesium Direct Bilirubin AST ALT Alkaline Phosphatase Lactate Dehydrogenase Troponin T C-Reactive Protein Total Protein Albumin Prealbumin Triglycerides Cholesterol LDL Cholesterol Direct HDL Cholesterol PTH Intact Urine pH Urine WBC (Auto) Urine Creatinine 47.4 H Urine Total Protein 16 H Fluid Total Protein Vancomycin Trough Rheumatoid Factor Complement C4 Miscellaneous Test Crossmatch 09/17/16 09/17/16 09/17/16 03:45 03:45 04:55 WBC 19.6 H RBC 3.41 L Hgb 8.5 L Hct 26.7 L MCV 78 L MCH 25 L MCHC RDW 19.9 H Plt Count Lymph % (Auto) 9.3 L [place] % (Auto) Lymph # [place] # 1.2 H Baso # Seg Neutrophils % 83.9 H Seg Neuts % (Manual) Lymphocytes % (Manual) Monocytes % (Manual) Eosinophils % (Manual) Basophils % (Manual) Nucleated RBC % Seg Neutrophils # 16.4 H Seg Neutrophils # Man Lymphocytes # (Manual) Monocytes # (Manual) Eosinophils # (Manual) Basophils # (Manual) PT INR Fibrinogen dRVVT Confirm Interp Factor V Activity POC ABG pH POC ABG pCO2 POC ABG pO2 ABG pO2 ABG HCO3 ABG Base Excess ABG Hemoglobin Oxyhemoglobin Sodium 146 H Potassium 5.1 H Chloride 110.9 H Carbon Dioxide 16 L BUN 146 H Creatinine 4.0 H Glucose 108 H POC Glucose 133 H Lactic Acid Calcium Phosphorus Magnesium 3.00 H Direct Bilirubin AST ALT Alkaline Phosphatase Lactate Dehydrogenase Troponin T C-Reactive Protein Total Protein Albumin Prealbumin Triglycerides Cholesterol LDL Cholesterol Direct HDL Cholesterol PTH Intact Urine pH Urine WBC (Auto) Urine Creatinine Urine Total Protein Fluid Total Protein Vancomycin Trough Rheumatoid Factor Complement C4 Miscellaneous Test Crossmatch 09/17/16 09/17/16 09/17/16 11:15 17:33 23:47 WBC RBC Hgb Hct MCV MCH MCHC RDW Plt Count Lymph % (Auto) [place] % (Auto) Lymph # [place] # Baso # Seg Neutrophils % Seg Neuts % (Manual) Lymphocytes % (Manual) Monocytes % (Manual) Eosinophils % (Manual) Basophils % (Manual) Nucleated RBC % Seg Neutrophils # Seg Neutrophils # Man Lymphocytes # (Manual) Monocytes # (Manual) Eosinophils # (Manual) Basophils # (Manual) PT INR Fibrinogen dRVVT Confirm Interp Factor V Activity POC ABG pH POC ABG pCO2 POC ABG pO2 ABG pO2 ABG HCO3 ABG Base Excess ABG Hemoglobin Oxyhemoglobin Sodium Potassium Chloride Carbon Dioxide BUN Creatinine Glucose POC Glucose 176 H 246 H 148 H Lactic Acid Calcium Phosphorus Magnesium Direct Bilirubin AST ALT Alkaline Phosphatase Lactate Dehydrogenase Troponin T C-Reactive Protein Total Protein Albumin Prealbumin Triglycerides Cholesterol LDL Cholesterol Direct HDL Cholesterol PTH Intact Urine pH Urine WBC (Auto) Urine Creatinine Urine Total Protein Fluid Total Protein Vancomycin Trough Rheumatoid Factor Complement C4 Miscellaneous Test Crossmatch 09/18/16 09/18/16 09/18/16 05:33 08:31 08:31 WBC 18.0 H RBC 3.17 L Hgb 9.0 L Hct 25.7 L MCV MCH MCHC 35 H RDW 20.4 H Plt Count Lymph % (Auto) [place] % (Auto) Lymph # [place] # Baso # Seg Neutrophils % Seg Neuts % (Manual) Lymphocytes % (Manual) Monocytes % (Manual) Eosinophils % (Manual) Basophils % (Manual) Nucleated RBC % Seg Neutrophils # Seg Neutrophils # Man Lymphocytes # (Manual) Monocytes # (Manual) Eosinophils # (Manual) Basophils # (Manual) PT INR Fibrinogen dRVVT Confirm Interp Factor V Activity POC ABG pH POC ABG pCO2 POC ABG pO2 ABG pO2 ABG HCO3 ABG Base Excess ABG Hemoglobin Oxyhemoglobin Sodium Potassium Chloride Carbon Dioxide 15 L BUN 124 H Creatinine 3.8 H Glucose POC Glucose 120 H Lactic Acid Calcium 8.1 L Phosphorus Magnesium Direct Bilirubin AST ALT Alkaline Phosphatase Lactate Dehydrogenase Troponin T C-Reactive Protein Total Protein Albumin Prealbumin Triglycerides Cholesterol LDL Cholesterol Direct HDL Cholesterol PTH Intact Urine pH Urine WBC (Auto) Urine Creatinine Urine Total Protein Fluid Total Protein Vancomycin Trough Rheumatoid Factor Complement C4 Miscellaneous Test Crossmatch 09/18/16 09/18/16 09/18/16 12:03 15:34 17:50 WBC RBC Hgb Hct MCV MCH MCHC RDW Plt Count Lymph % (Auto) [place] % (Auto) Lymph # [place] # Baso # Seg Neutrophils % Seg Neuts % (Manual) Lymphocytes % (Manual) Monocytes % (Manual) Eosinophils % (Manual) Basophils % (Manual) Nucleated RBC % Seg Neutrophils # Seg Neutrophils # Man Lymphocytes # (Manual) Monocytes # (Manual) Eosinophils # (Manual) Basophils # (Manual) PT INR Fibrinogen dRVVT Confirm Interp Factor V Activity POC ABG pH POC ABG pCO2 25.7 L POC ABG pO2 66 L ABG pO2 ABG HCO3 ABG Base Excess ABG Hemoglobin Oxyhemoglobin Sodium Potassium Chloride Carbon Dioxide BUN Creatinine Glucose POC Glucose 156 H 220 H Lactic Acid Calcium Phosphorus Magnesium Direct Bilirubin AST ALT Alkaline Phosphatase Lactate Dehydrogenase Troponin T C-Reactive Protein Total Protein Albumin Prealbumin Triglycerides Cholesterol LDL Cholesterol Direct HDL Cholesterol PTH Intact Urine pH Urine WBC (Auto) Urine Creatinine Urine Total Protein Fluid Total Protein Vancomycin Trough Rheumatoid Factor Complement C4 Miscellaneous Test Crossmatch 09/19/16 09/19/16 09/19/16 06:21 09:50 09:50 WBC 17.1 H RBC 3.49 L Hgb 9.0 L Hct 28.1 L MCV MCH 26 L MCHC RDW 20.8 H Plt Count Lymph % (Auto) 11.5 L [place] % (Auto) 7.5 H Lymph # [place] # 1.3 H Baso # Seg Neutrophils % 79.8 H Seg Neuts % (Manual) Lymphocytes % (Manual) Monocytes % (Manual) Eosinophils % (Manual) Basophils % (Manual) Nucleated RBC % Seg Neutrophils # 13.7 H Seg Neutrophils # Man Lymphocytes # (Manual) Monocytes # (Manual) Eosinophils # (Manual) Basophils # (Manual) PT INR Fibrinogen dRVVT Confirm Interp Factor V Activity POC ABG pH POC ABG pCO2 POC ABG pO2 ABG pO2 ABG HCO3 ABG Base Excess ABG Hemoglobin Oxyhemoglobin Sodium Potassium Chloride 108.6 H Carbon Dioxide 15 L BUN 125 H Creatinine 4.1 H Glucose 124 H POC Glucose 119 H Lactic Acid Calcium Phosphorus Magnesium Direct Bilirubin AST ALT Alkaline Phosphatase Lactate Dehydrogenase Troponin T C-Reactive Protein Total Protein Albumin Prealbumin Triglycerides Cholesterol LDL Cholesterol Direct HDL Cholesterol PTH Intact Urine pH Urine WBC (Auto) Urine Creatinine Urine Total Protein Fluid Total Protein Vancomycin Trough Rheumatoid Factor Complement C4 Miscellaneous Test Crossmatch 09/19/16 09/19/16 09/19/16 11:25 17:53 23:36 WBC RBC Hgb Hct MCV MCH MCHC RDW Plt Count Lymph % (Auto) [place] % (Auto) Lymph # [place] # Baso # Seg Neutrophils % Seg Neuts % (Manual) Lymphocytes % (Manual) Monocytes % (Manual) Eosinophils % (Manual) Basophils % (Manual) Nucleated RBC % Seg Neutrophils # Seg Neutrophils # Man Lymphocytes # (Manual) Monocytes # (Manual) Eosinophils # (Manual) Basophils # (Manual) PT INR Fibrinogen dRVVT Confirm Interp Factor V Activity POC ABG pH POC ABG pCO2 POC ABG pO2 ABG pO2 ABG HCO3 ABG Base Excess ABG Hemoglobin Oxyhemoglobin Sodium Potassium Chloride Carbon Dioxide BUN Creatinine Glucose POC Glucose 160 H 245 H 121 H Lactic Acid Calcium Phosphorus Magnesium Direct Bilirubin AST ALT Alkaline Phosphatase Lactate Dehydrogenase Troponin T C-Reactive Protein Total Protein Albumin Prealbumin Triglycerides Cholesterol LDL Cholesterol Direct HDL Cholesterol PTH Intact Urine pH Urine WBC (Auto) Urine Creatinine Urine Total Protein Fluid Total Protein Vancomycin Trough Rheumatoid Factor Complement C4 Miscellaneous Test Crossmatch 09/20/16 09/20/16 09/20/16 04:10 04:10 04:10 WBC 17.0 H RBC 3.21 L Hgb 8.2 L Hct 25.5 L MCV MCH 26 L MCHC RDW 20.9 H Plt Count Lymph % (Auto) [place] % (Auto) Lymph # [place] # Baso # Seg Neutrophils % Seg Neuts % (Manual) Lymphocytes % (Manual) Monocytes % (Manual) Eosinophils % (Manual) Basophils % (Manual) Nucleated RBC % Seg Neutrophils # Seg Neutrophils # Man Lymphocytes # (Manual) Monocytes # (Manual) Eosinophils # (Manual) Basophils # (Manual) PT INR Fibrinogen dRVVT Confirm Interp Factor V Activity POC ABG pH POC ABG pCO2 POC ABG pO2 ABG pO2 ABG HCO3 ABG Base Excess ABG Hemoglobin Oxyhemoglobin Sodium Potassium Chloride 111.0 H Carbon Dioxide 16 L BUN 129 H Creatinine 3.7 H Glucose 115 H POC Glucose Lactic Acid Calcium 8.2 L Phosphorus Magnesium Direct Bilirubin AST ALT Alkaline Phosphatase Lactate Dehydrogenase Troponin T C-Reactive Protein Total Protein Albumin Prealbumin Triglycerides 243 H Cholesterol LDL Cholesterol Direct HDL Cholesterol PTH Intact Urine pH Urine WBC (Auto) Urine Creatinine Urine Total Protein Fluid Total Protein Vancomycin Trough Rheumatoid Factor Complement C4 Miscellaneous Test Crossmatch 09/20/16 09/20/16 09/20/16 05:40 11:52 16:50 WBC RBC Hgb Hct MCV MCH MCHC RDW Plt Count Lymph % (Auto) [place] % (Auto) Lymph # [place] # Baso # Seg Neutrophils % Seg Neuts % (Manual) Lymphocytes % (Manual) Monocytes % (Manual) Eosinophils % (Manual) Basophils % (Manual) Nucleated RBC % Seg Neutrophils # Seg Neutrophils # Man Lymphocytes # (Manual) Monocytes # (Manual) Eosinophils # (Manual) Basophils # (Manual) PT INR Fibrinogen dRVVT Confirm Interp Factor V Activity POC ABG pH POC ABG pCO2 POC ABG pO2 ABG pO2 ABG HCO3 ABG Base Excess ABG Hemoglobin Oxyhemoglobin Sodium Potassium Chloride Carbon Dioxide BUN Creatinine Glucose POC Glucose 131 H 183 H 236 H Lactic Acid Calcium Phosphorus Magnesium Direct Bilirubin AST ALT Alkaline Phosphatase Lactate Dehydrogenase Troponin T C-Reactive Protein Total Protein Albumin Prealbumin Triglycerides Cholesterol LDL Cholesterol Direct HDL Cholesterol PTH Intact Urine pH Urine WBC (Auto) Urine Creatinine Urine Total Protein Fluid Total Protein Vancomycin Trough Rheumatoid Factor Complement C4 Miscellaneous Test Crossmatch 09/20/16 09/21/16 09/21/16 23:51 03:30 04:44 WBC RBC Hgb Hct MCV MCH MCHC RDW Plt Count Lymph % (Auto) [place] % (Auto) Lymph # [place] # Baso # Seg Neutrophils % Seg Neuts % (Manual) Lymphocytes % (Manual) Monocytes % (Manual) Eosinophils % (Manual) Basophils % (Manual) Nucleated RBC % Seg Neutrophils # Seg Neutrophils # Man Lymphocytes # (Manual) Monocytes # (Manual) Eosinophils # (Manual) Basophils # (Manual) PT INR Fibrinogen dRVVT Confirm Interp Factor V Activity POC ABG pH POC ABG pCO2 POC ABG pO2 ABG pO2 ABG HCO3 ABG Base Excess ABG Hemoglobin Oxyhemoglobin Sodium Potassium Chloride Carbon Dioxide BUN Creatinine Glucose POC Glucose 114 H 141 H Lactic Acid Calcium Phosphorus Magnesium 2.70 H Direct Bilirubin AST ALT Alkaline Phosphatase Lactate Dehydrogenase Troponin T C-Reactive Protein Total Protein Albumin Prealbumin Triglycerides Cholesterol LDL Cholesterol Direct HDL Cholesterol PTH Intact Urine pH Urine WBC (Auto) Urine Creatinine Urine Total Protein Fluid Total Protein Vancomycin Trough Rheumatoid Factor Complement C4 Miscellaneous Test Crossmatch 09/21/16 09/21/16 09/21/16 07:45 07:45 10:01 WBC 13.8 H RBC 2.94 L Hgb 7.5 L Hct 23.5 L MCV MCH 26 L MCHC RDW 21.2 H Plt Count Lymph % (Auto) 6.9 L [place] % (Auto) 9.4 H Lymph # 0.9 L [place] # 1.3 H Baso # Seg Neutrophils % 83.2 H Seg Neuts % (Manual) Lymphocytes % (Manual) Monocytes % (Manual) Eosinophils % (Manual) Basophils % (Manual) Nucleated RBC % Seg Neutrophils # 11.5 H Seg Neutrophils # Man Lymphocytes # (Manual) Monocytes # (Manual) Eosinophils # (Manual) Basophils # (Manual) PT INR Fibrinogen dRVVT Confirm Interp Factor V Activity POC ABG pH 7.308 L POC ABG pCO2 31.9 L POC ABG pO2 148 H ABG pO2 ABG HCO3 ABG Base Excess ABG Hemoglobin Oxyhemoglobin Sodium 147 H Potassium Chloride 114.2 H Carbon Dioxide 15 L BUN 120 H Creatinine 3.9 H Glucose 156 H POC Glucose Lactic Acid Calcium 8.2 L Phosphorus Magnesium Direct Bilirubin AST ALT Alkaline Phosphatase Lactate Dehydrogenase Troponin T C-Reactive Protein Total Protein Albumin Prealbumin Triglycerides Cholesterol LDL Cholesterol Direct HDL Cholesterol PTH Intact Urine pH Urine WBC (Auto) Urine Creatinine Urine Total Protein Fluid Total Protein Vancomycin Trough Rheumatoid Factor Complement C4 Miscellaneous Test Crossmatch 09/21/16 09/21/16 09/21/16 12:00 12:03 13:00 WBC RBC Hgb Hct MCV MCH MCHC RDW Plt Count Lymph % (Auto) [place] % (Auto) Lymph # [place] # Baso # Seg Neutrophils % Seg Neuts % (Manual) Lymphocytes % (Manual) Monocytes % (Manual) Eosinophils % (Manual) Basophils % (Manual) Nucleated RBC % Seg Neutrophils # Seg Neutrophils # Man Lymphocytes # (Manual) Monocytes # (Manual) Eosinophils # (Manual) Basophils # (Manual) PT INR Fibrinogen dRVVT Confirm Interp Factor V Activity POC ABG pH POC ABG pCO2 POC ABG pO2 ABG pO2 ABG HCO3 ABG Base Excess ABG Hemoglobin Oxyhemoglobin Sodium Potassium Chloride Carbon Dioxide BUN Creatinine Glucose POC Glucose 163 H Lactic Acid Calcium Phosphorus Magnesium Direct Bilirubin AST ALT Alkaline Phosphatase Lactate Dehydrogenase Troponin T C-Reactive Protein Total Protein Albumin Prealbumin Triglycerides Cholesterol LDL Cholesterol Direct HDL Cholesterol PTH Intact Urine pH Urine WBC (Auto) Urine Creatinine 54.8 H Urine Total Protein Fluid Total Protein Vancomycin Trough 2.3 L Rheumatoid Factor Complement C4 Miscellaneous Test Crossmatch 09/21/16 09/21/16 09/22/16 16:51 23:17 06:27 WBC RBC Hgb Hct MCV MCH MCHC RDW Plt Count Lymph % (Auto) [place] % (Auto) Lymph # [place] # Baso # Seg Neutrophils % Seg Neuts % (Manual) Lymphocytes % (Manual) Monocytes % (Manual) Eosinophils % (Manual) Basophils % (Manual) Nucleated RBC % Seg Neutrophils # Seg Neutrophils # Man Lymphocytes # (Manual) Monocytes # (Manual) Eosinophils # (Manual) Basophils # (Manual) PT INR Fibrinogen dRVVT Confirm Interp Factor V Activity POC ABG pH POC ABG pCO2 POC ABG pO2 ABG pO2 ABG HCO3 ABG Base Excess ABG Hemoglobin Oxyhemoglobin Sodium Potassium Chloride Carbon Dioxide BUN Creatinine Glucose POC Glucose 206 H 114 H 115 H Lactic Acid Calcium Phosphorus Magnesium Direct Bilirubin AST ALT Alkaline Phosphatase Lactate Dehydrogenase Troponin T C-Reactive Protein Total Protein Albumin Prealbumin Triglycerides Cholesterol LDL Cholesterol Direct HDL Cholesterol PTH Intact Urine pH Urine WBC (Auto) Urine Creatinine Urine Total Protein Fluid Total Protein Vancomycin Trough Rheumatoid Factor Complement C4 Miscellaneous Test Crossmatch 09/22/16 09/22/16 09/22/16 07:50 07:50 12:00 WBC 17.8 H RBC 3.04 L Hgb 8.0 L Hct 24.7 L MCV MCH 26 L MCHC RDW 21.6 H Plt Count Lymph % (Auto) [place] % (Auto) Lymph # [place] # Baso # Seg Neutrophils % Seg Neuts % (Manual) Lymphocytes % (Manual) Monocytes % (Manual) Eosinophils % (Manual) Basophils % (Manual) Nucleated RBC % Seg Neutrophils # Seg Neutrophils # Man Lymphocytes # (Manual) Monocytes # (Manual) Eosinophils # (Manual) Basophils # (Manual) PT INR Fibrinogen dRVVT Confirm Interp Factor V Activity POC ABG pH POC ABG pCO2 POC ABG pO2 ABG pO2 ABG HCO3 ABG Base Excess ABG Hemoglobin Oxyhemoglobin Sodium 150 H Potassium Chloride 118.2 H Carbon Dioxide 14 L BUN 111 H Creatinine 3.7 H Glucose 157 H POC Glucose 183 H Lactic Acid Calcium Phosphorus Magnesium Direct Bilirubin AST ALT Alkaline Phosphatase Lactate Dehydrogenase Troponin T C-Reactive Protein Total Protein Albumin Prealbumin Triglycerides Cholesterol LDL Cholesterol Direct HDL Cholesterol PTH Intact Urine pH Urine WBC (Auto) Urine Creatinine Urine Total Protein Fluid Total Protein Vancomycin Trough Rheumatoid Factor Complement C4 Miscellaneous Test Crossmatch 09/22/16 09/22/16 09/23/16 17:29 23:10 05:00 WBC 19.2 H RBC 3.13 L Hgb 8.0 L Hct 25.2 L MCV MCH 26 L MCHC RDW 22.1 H Plt Count Lymph % (Auto) [place] % (Auto) Lymph # [place] # Baso # Seg Neutrophils % Seg Neuts % (Manual) 92.0 H Lymphocytes % (Manual) 3.0 L Monocytes % (Manual) Eosinophils % (Manual) Basophils % (Manual) Nucleated RBC % Seg Neutrophils # Seg Neutrophils # Man 17.7 H Lymphocytes # (Manual) 0.6 L Monocytes # (Manual) Eosinophils # (Manual) Basophils # (Manual) PT INR Fibrinogen dRVVT Confirm Interp Factor V Activity POC ABG pH POC ABG pCO2 POC ABG pO2 ABG pO2 ABG HCO3 ABG Base Excess ABG Hemoglobin Oxyhemoglobin Sodium Potassium Chloride Carbon Dioxide BUN Creatinine Glucose POC Glucose 197 H 169 H Lactic Acid Calcium Phosphorus Magnesium Direct Bilirubin AST ALT Alkaline Phosphatase Lactate Dehydrogenase Troponin T C-Reactive Protein Total Protein Albumin Prealbumin Triglycerides Cholesterol LDL Cholesterol Direct HDL Cholesterol PTH Intact Urine pH Urine WBC (Auto) Urine Creatinine Urine Total Protein Fluid Total Protein Vancomycin Trough Rheumatoid Factor Complement C4 Miscellaneous Test Crossmatch 09/23/16 09/23/16 09/23/16 05:00 05:00 05:10 WBC RBC Hgb Hct MCV MCH MCHC RDW Plt Count Lymph % (Auto) [place] % (Auto) Lymph # [place] # Baso # Seg Neutrophils % Seg Neuts % (Manual) Lymphocytes % (Manual) Monocytes % (Manual) Eosinophils % (Manual) Basophils % (Manual) Nucleated RBC % Seg Neutrophils # Seg Neutrophils # Man Lymphocytes # (Manual) Monocytes # (Manual) Eosinophils # (Manual) Basophils # (Manual) PT INR Fibrinogen dRVVT Confirm Interp Factor V Activity POC ABG pH POC ABG pCO2 POC ABG pO2 ABG pO2 ABG HCO3 ABG Base Excess ABG Hemoglobin Oxyhemoglobin Sodium 147 H Potassium 3.2 L Chloride 115.7 H Carbon Dioxide 13 L BUN 111 H Creatinine 3.8 H Glucose 194 H POC Glucose 188 H Lactic Acid Calcium 7.3 L D Phosphorus Magnesium Direct Bilirubin AST ALT Alkaline Phosphatase Lactate Dehydrogenase Troponin T C-Reactive Protein 3.20 H Total Protein Albumin Prealbumin Triglycerides Cholesterol LDL Cholesterol Direct HDL Cholesterol PTH Intact Urine pH Urine WBC (Auto) Urine Creatinine Urine Total Protein Fluid Total Protein Vancomycin Trough Rheumatoid Factor Complement C4 Miscellaneous Test Crossmatch 09/23/16 09/23/16 09/23/16 11:37 12:29 18:01 WBC RBC Hgb Hct MCV MCH MCHC RDW Plt Count Lymph % (Auto) [place] % (Auto) Lymph # [place] # Baso # Seg Neutrophils % Seg Neuts % (Manual) Lymphocytes % (Manual) Monocytes % (Manual) Eosinophils % (Manual) Basophils % (Manual) Nucleated RBC % Seg Neutrophils # Seg Neutrophils # Man Lymphocytes # (Manual) Monocytes # (Manual) Eosinophils # (Manual) Basophils # (Manual) PT INR Fibrinogen dRVVT Confirm Interp Factor V Activity POC ABG pH POC ABG pCO2 18.9 L POC ABG pO2 143 H ABG pO2 ABG HCO3 ABG Base Excess ABG Hemoglobin Oxyhemoglobin Sodium Potassium Chloride Carbon Dioxide BUN Creatinine Glucose POC Glucose 153 H 108 H Lactic Acid Calcium Phosphorus Magnesium Direct Bilirubin AST ALT Alkaline Phosphatase Lactate Dehydrogenase Troponin T C-Reactive Protein Total Protein Albumin Prealbumin Triglycerides Cholesterol LDL Cholesterol Direct HDL Cholesterol PTH Intact Urine pH Urine WBC (Auto) Urine Creatinine Urine Total Protein Fluid Total Protein Vancomycin Trough Rheumatoid Factor Complement C4 Miscellaneous Test Crossmatch 09/23/16 09/23/16 09/24/16 21:19 23:43 05:16 WBC RBC Hgb Hct MCV MCH MCHC RDW Plt Count Lymph % (Auto) [place] % (Auto) Lymph # [place] # Baso # Seg Neutrophils % Seg Neuts % (Manual) Lymphocytes % (Manual) Monocytes % (Manual) Eosinophils % (Manual) Basophils % (Manual) Nucleated RBC % Seg Neutrophils # Seg Neutrophils # Man Lymphocytes # (Manual) Monocytes # (Manual) Eosinophils # (Manual) Basophils # (Manual) PT INR Fibrinogen dRVVT Confirm Interp Factor V Activity POC ABG pH POC ABG pCO2 17.3 L POC ABG pO2 112 H ABG pO2 ABG HCO3 ABG Base Excess ABG Hemoglobin Oxyhemoglobin Sodium Potassium Chloride Carbon Dioxide BUN Creatinine Glucose POC Glucose 143 H 164 H Lactic Acid Calcium Phosphorus Magnesium Direct Bilirubin AST ALT Alkaline Phosphatase Lactate Dehydrogenase Troponin T C-Reactive Protein Total Protein Albumin Prealbumin Triglycerides Cholesterol LDL Cholesterol Direct HDL Cholesterol PTH Intact Urine pH Urine WBC (Auto) Urine Creatinine Urine Total Protein Fluid Total Protein Vancomycin Trough Rheumatoid Factor Complement C4 Miscellaneous Test Crossmatch 09/24/16 09/24/16 09/24/16 05:21 11:58 17:06 WBC RBC Hgb Hct MCV MCH MCHC RDW Plt Count Lymph % (Auto) [place] % (Auto) Lymph # [place] # Baso # Seg Neutrophils % Seg Neuts % (Manual) Lymphocytes % (Manual) Monocytes % (Manual) Eosinophils % (Manual) Basophils % (Manual) Nucleated RBC % Seg Neutrophils # Seg Neutrophils # Man Lymphocytes # (Manual) Monocytes # (Manual) Eosinophils # (Manual) Basophils # (Manual) PT INR Fibrinogen dRVVT Confirm Interp Factor V Activity POC ABG pH POC ABG pCO2 POC ABG pO2 ABG pO2 ABG HCO3 ABG Base Excess ABG Hemoglobin Oxyhemoglobin Sodium Potassium Chloride Carbon Dioxide 10 L BUN 103 H Creatinine 4.3 H Glucose 163 H POC Glucose 173 H 167 H Lactic Acid Calcium 6.5 L Phosphorus Magnesium Direct Bilirubin AST ALT Alkaline Phosphatase Lactate Dehydrogenase Troponin T C-Reactive Protein Total Protein Albumin Prealbumin Triglycerides Cholesterol LDL Cholesterol Direct HDL Cholesterol PTH Intact Urine pH Urine WBC (Auto) Urine Creatinine Urine Total Protein Fluid Total Protein Vancomycin Trough Rheumatoid Factor Complement C4 Miscellaneous Test Crossmatch 09/24/16 09/24/16 09/24/16 20:15 21:02 23:48 WBC RBC Hgb Hct MCV MCH MCHC RDW Plt Count Lymph % (Auto) [place] % (Auto) Lymph # [place] # Baso # Seg Neutrophils % Seg Neuts % (Manual) Lymphocytes % (Manual) Monocytes % (Manual) Eosinophils % (Manual) Basophils % (Manual) Nucleated RBC % Seg Neutrophils # Seg Neutrophils # Man Lymphocytes # (Manual) Monocytes # (Manual) Eosinophils # (Manual) Basophils # (Manual) PT INR Fibrinogen dRVVT Confirm Interp Factor V Activity POC ABG pH 7.288 L POC ABG pCO2 30.2 L 21.5 L POC ABG pO2 32 L 39 L ABG pO2 ABG HCO3 ABG Base Excess ABG Hemoglobin Oxyhemoglobin Sodium Potassium Chloride Carbon Dioxide BUN Creatinine Glucose POC Glucose 109 H Lactic Acid Calcium Phosphorus Magnesium Direct Bilirubin AST ALT Alkaline Phosphatase Lactate Dehydrogenase Troponin T C-Reactive Protein Total Protein Albumin Prealbumin Triglycerides Cholesterol LDL Cholesterol Direct HDL Cholesterol PTH Intact Urine pH Urine WBC (Auto) Urine Creatinine Urine Total Protein Fluid Total Protein Vancomycin Trough Rheumatoid Factor Complement C4 Miscellaneous Test Crossmatch 09/25/16 09/25/16 09/25/16 04:20 04:20 04:20 WBC RBC 2.58 L Hgb 7.0 L Hct 21.0 L MCV MCH 27 L MCHC RDW 23.8 H Plt Count Lymph % (Auto) [place] % (Auto) Lymph # [place] # Baso # Seg Neutrophils % Seg Neuts % (Manual) Lymphocytes % (Manual) 12.0 L Monocytes % (Manual) Eosinophils % (Manual) 7.0 H Basophils % (Manual) 2.0 H Nucleated RBC % Seg Neutrophils # Seg Neutrophils # Man Lymphocytes # (Manual) 0.9 L Monocytes # (Manual) Eosinophils # (Manual) 0.5 H Basophils # (Manual) PT INR Fibrinogen dRVVT Confirm Interp Factor V Activity POC ABG pH POC ABG pCO2 POC ABG pO2 ABG pO2 ABG HCO3 ABG Base Excess ABG Hemoglobin Oxyhemoglobin Sodium Potassium Chloride Carbon Dioxide 15 L BUN 72 H Creatinine 3.8 H Glucose POC Glucose Lactic Acid Calcium 6.0 L Phosphorus 4.60 H Magnesium 1.60 L Direct Bilirubin AST ALT Alkaline Phosphatase Lactate Dehydrogenase Troponin T C-Reactive Protein Total Protein Albumin Prealbumin Triglycerides Cholesterol LDL Cholesterol Direct HDL Cholesterol PTH Intact Urine pH Urine WBC (Auto) Urine Creatinine Urine Total Protein Fluid Total Protein Vancomycin Trough Rheumatoid Factor Complement C4 Miscellaneous Test Crossmatch 09/25/16 09/25/16 09/25/16 04:57 08:02 10:30 WBC RBC Hgb Hct MCV MCH MCHC RDW Plt Count Lymph % (Auto) [place] % (Auto) Lymph # [place] # Baso # Seg Neutrophils % Seg Neuts % (Manual) Lymphocytes % (Manual) Monocytes % (Manual) Eosinophils % (Manual) Basophils % (Manual) Nucleated RBC % Seg Neutrophils # Seg Neutrophils # Man Lymphocytes # (Manual) Monocytes # (Manual) Eosinophils # (Manual) Basophils # (Manual) PT INR Fibrinogen dRVVT Confirm Interp Factor V Activity POC ABG pH POC ABG pCO2 24.7 L POC ABG pO2 152 H ABG pO2 ABG HCO3 ABG Base Excess ABG Hemoglobin Oxyhemoglobin Sodium Potassium Chloride Carbon Dioxide BUN Creatinine Glucose POC Glucose 113 H Lactic Acid Calcium Phosphorus Magnesium Direct Bilirubin AST ALT Alkaline Phosphatase Lactate Dehydrogenase Troponin T C-Reactive Protein Total Protein Albumin Prealbumin Triglycerides Cholesterol LDL Cholesterol Direct HDL Cholesterol PTH Intact Urine pH Urine WBC (Auto) Urine Creatinine Urine Total Protein Fluid Total Protein Vancomycin Trough Rheumatoid Factor Complement C4 Miscellaneous Test Crossmatch See Detail 09/25/16 09/25/16 09/25/16 12:05 17:44 23:47 WBC RBC Hgb Hct MCV MCH MCHC RDW Plt Count Lymph % (Auto) [place] % (Auto) Lymph # [place] # Baso # Seg Neutrophils % Seg Neuts % (Manual) Lymphocytes % (Manual) Monocytes % (Manual) Eosinophils % (Manual) Basophils % (Manual) Nucleated RBC % Seg Neutrophils # Seg Neutrophils # Man Lymphocytes # (Manual) Monocytes # (Manual) Eosinophils # (Manual) Basophils # (Manual) PT INR Fibrinogen dRVVT Confirm Interp Factor V Activity POC ABG pH POC ABG pCO2 POC ABG pO2 ABG pO2 ABG HCO3 ABG Base Excess ABG Hemoglobin Oxyhemoglobin Sodium Potassium Chloride Carbon Dioxide BUN Creatinine Glucose POC Glucose 117 H 119 H 150 H Lactic Acid Calcium Phosphorus Magnesium Direct Bilirubin AST ALT Alkaline Phosphatase Lactate Dehydrogenase Troponin T C-Reactive Protein Total Protein Albumin Prealbumin Triglycerides Cholesterol LDL Cholesterol Direct HDL Cholesterol PTH Intact Urine pH Urine WBC (Auto) Urine Creatinine Urine Total Protein Fluid Total Protein Vancomycin Trough Rheumatoid Factor Complement C4 Miscellaneous Test Crossmatch 09/26/16 09/26/16 09/26/16 04:25 04:25 04:25 WBC RBC 2.65 L Hgb 7.4 L Hct 21.6 L MCV MCH MCHC RDW 22.5 H Plt Count Lymph % (Auto) [place] % (Auto) Lymph # [place] # Baso # Seg Neutrophils % Seg Neuts % (Manual) Lymphocytes % (Manual) 6.0 L Monocytes % (Manual) Eosinophils % (Manual) 11.0 H Basophils % (Manual) Nucleated RBC % Seg Neutrophils # Seg Neutrophils # Man Lymphocytes # (Manual) 0.4 L Monocytes # (Manual) Eosinophils # (Manual) 0.6 H Basophils # (Manual) PT INR Fibrinogen dRVVT Confirm Interp Factor V Activity POC ABG pH POC ABG pCO2 POC ABG pO2 ABG pO2 ABG HCO3 ABG Base Excess ABG Hemoglobin Oxyhemoglobin Sodium Potassium Chloride 97.0 L Carbon Dioxide 19 L BUN 43 H Creatinine 2.6 H Glucose 130 H POC Glucose Lactic Acid 4.40 H* Calcium 6.7 L Phosphorus Magnesium Direct Bilirubin AST ALT Alkaline Phosphatase Lactate Dehydrogenase Troponin T C-Reactive Protein Total Protein Albumin Prealbumin Triglycerides Cholesterol LDL Cholesterol Direct HDL Cholesterol PTH Intact Urine pH Urine WBC (Auto) Urine Creatinine Urine Total Protein Fluid Total Protein Vancomycin Trough Rheumatoid Factor Complement C4 Miscellaneous Test Crossmatch 09/26/16 09/26/16 09/26/16 05:20 11:44 12:12 WBC RBC Hgb Hct MCV MCH MCHC RDW Plt Count Lymph % (Auto) [place] % (Auto) Lymph # [place] # Baso # Seg Neutrophils % Seg Neuts % (Manual) Lymphocytes % (Manual) Monocytes % (Manual) Eosinophils % (Manual) Basophils % (Manual) Nucleated RBC % Seg Neutrophils # Seg Neutrophils # Man Lymphocytes # (Manual) Monocytes # (Manual) Eosinophils # (Manual) Basophils # (Manual) PT INR Fibrinogen dRVVT Confirm Interp Factor V Activity POC ABG pH POC ABG pCO2 27.0 L POC ABG pO2 69 L ABG pO2 ABG HCO3 ABG Base Excess ABG Hemoglobin Oxyhemoglobin Sodium Potassium Chloride Carbon Dioxide BUN Creatinine Glucose POC Glucose 121 H 128 H Lactic Acid Calcium Phosphorus Magnesium Direct Bilirubin AST ALT Alkaline Phosphatase Lactate Dehydrogenase Troponin T C-Reactive Protein Total Protein Albumin Prealbumin Triglycerides Cholesterol LDL Cholesterol Direct HDL Cholesterol PTH Intact Urine pH Urine WBC (Auto) Urine Creatinine Urine Total Protein Fluid Total Protein Vancomycin Trough Rheumatoid Factor Complement C4 Miscellaneous Test Crossmatch 09/26/16 09/26/16 09/27/16 18:31 23:40 08:20 WBC RBC Hgb Hct MCV MCH MCHC RDW Plt Count Lymph % (Auto) [place] % (Auto) Lymph # [place] # Baso # Seg Neutrophils % Seg Neuts % (Manual) Lymphocytes % (Manual) Monocytes % (Manual) Eosinophils % (Manual) Basophils % (Manual) Nucleated RBC % Seg Neutrophils # Seg Neutrophils # Man Lymphocytes # (Manual) Monocytes # (Manual) Eosinophils # (Manual) Basophils # (Manual) PT INR Fibrinogen dRVVT Confirm Interp Factor V Activity POC ABG pH POC ABG pCO2 POC ABG pO2 ABG pO2 ABG HCO3 ABG Base Excess ABG Hemoglobin Oxyhemoglobin Sodium Potassium Chloride Carbon Dioxide BUN Creatinine Glucose POC Glucose 120 H 133 H Lactic Acid 4.10 H* Calcium Phosphorus Magnesium Direct Bilirubin AST ALT Alkaline Phosphatase Lactate Dehydrogenase Troponin T C-Reactive Protein Total Protein Albumin Prealbumin Triglycerides Cholesterol LDL Cholesterol Direct HDL Cholesterol PTH Intact Urine pH Urine WBC (Auto) Urine Creatinine Urine Total Protein Fluid Total Protein Vancomycin Trough Rheumatoid Factor Complement C4 Miscellaneous Test Crossmatch 09/27/16 09/27/16 09/27/16 11:23 15:00 18:15 WBC RBC Hgb Hct MCV MCH MCHC RDW Plt Count Lymph % (Auto) [place] % (Auto) Lymph # [place] # Baso # Seg Neutrophils % Seg Neuts % (Manual) Lymphocytes % (Manual) Monocytes % (Manual) Eosinophils % (Manual) Basophils % (Manual) Nucleated RBC % Seg Neutrophils # Seg Neutrophils # Man Lymphocytes # (Manual) Monocytes # (Manual) Eosinophils # (Manual) Basophils # (Manual) PT INR Fibrinogen dRVVT Confirm Interp Factor V Activity POC ABG pH 7.459 H POC ABG pCO2 27.1 L POC ABG pO2 140 H ABG pO2 ABG HCO3 ABG Base Excess ABG Hemoglobin Oxyhemoglobin Sodium Potassium Chloride Carbon Dioxide BUN Creatinine Glucose POC Glucose 114 H 127 H Lactic Acid Calcium Phosphorus Magnesium Direct Bilirubin AST ALT Alkaline Phosphatase Lactate Dehydrogenase Troponin T C-Reactive Protein Total Protein Albumin Prealbumin Triglycerides Cholesterol LDL Cholesterol Direct HDL Cholesterol PTH Intact Urine pH Urine WBC (Auto) Urine Creatinine Urine Total Protein Fluid Total Protein Vancomycin Trough Rheumatoid Factor Complement C4 Miscellaneous Test Crossmatch 09/27/16 09/27/16 09/28/16 Unknown Unknown 03:45 WBC RBC 2.49 L Hgb 6.8 L Hct 20.7 L MCV MCH 27 L MCHC RDW 22.1 H Plt Count Lymph % (Auto) [place] % (Auto) Lymph # [place] # Baso # Seg Neutrophils % Seg Neuts % (Manual) 32.0 L Lymphocytes % (Manual) 12.0 L Monocytes % (Manual) 11.0 H Eosinophils % (Manual) 10.0 H Basophils % (Manual) Nucleated RBC % Seg Neutrophils # Seg Neutrophils # Man Lymphocytes # (Manual) 1.0 L Monocytes # (Manual) 0.9 H Eosinophils # (Manual) 0.8 H Basophils # (Manual) PT INR Fibrinogen dRVVT Confirm Interp Factor V Activity POC ABG pH POC ABG pCO2 POC ABG pO2 ABG pO2 ABG HCO3 ABG Base Excess ABG Hemoglobin Oxyhemoglobin Sodium 135 L 135 L Potassium 3.5 L Chloride 93.6 L 94.4 L Carbon Dioxide 17 L 21 L BUN 45 H 28 H Creatinine 3.3 H 2.5 H Glucose 106 H POC Glucose Lactic Acid Calcium 7.3 L 7.1 L Phosphorus Magnesium Direct Bilirubin AST ALT Alkaline Phosphatase Lactate Dehydrogenase Troponin T C-Reactive Protein Total Protein Albumin Prealbumin Triglycerides Cholesterol LDL Cholesterol Direct HDL Cholesterol PTH Intact Urine pH Urine WBC (Auto) Urine Creatinine Urine Total Protein Fluid Total Protein Vancomycin Trough Rheumatoid Factor Complement C4 Miscellaneous Test Crossmatch 09/28/16 09/28/16 09/28/16 03:45 07:25 11:58 WBC 13.3 H RBC 3.01 L Hgb 8.4 L Hct 25.0 L MCV MCH MCHC RDW 20.5 H Plt Count 128 L Lymph % (Auto) [place] % (Auto) Lymph # [place] # Baso # Seg Neutrophils % Seg Neuts % (Manual) Lymphocytes % (Manual) 7.0 L Monocytes % (Manual) Eosinophils % (Manual) 6.0 H Basophils % (Manual) Nucleated RBC % Seg Neutrophils # Seg Neutrophils # Man Lymphocytes # (Manual) 0.9 L Monocytes # (Manual) Eosinophils # (Manual) 0.8 H Basophils # (Manual) PT INR Fibrinogen dRVVT Confirm Interp Factor V Activity POC ABG pH POC ABG pCO2 POC ABG pO2 ABG pO2 ABG HCO3 ABG Base Excess ABG Hemoglobin Oxyhemoglobin Sodium Potassium Chloride Carbon Dioxide BUN Creatinine Glucose POC Glucose 121 H Lactic Acid 4.50 H* Calcium Phosphorus Magnesium Direct Bilirubin AST ALT Alkaline Phosphatase Lactate Dehydrogenase Troponin T C-Reactive Protein Total Protein Albumin Prealbumin Triglycerides Cholesterol LDL Cholesterol Direct HDL Cholesterol PTH Intact Urine pH Urine WBC (Auto) Urine Creatinine Urine Total Protein Fluid Total Protein Vancomycin Trough Rheumatoid Factor Complement C4 Miscellaneous Test Crossmatch 09/29/16 09/29/16 09/29/16 06:45 06:45 06:45 WBC 14.9 H RBC 2.74 L Hgb 7.6 L Hct 23.2 L MCV MCH MCHC RDW 20.5 H Plt Count 81 L Lymph % (Auto) [place] % (Auto) Lymph # [place] # Baso # Seg Neutrophils % Seg Neuts % (Manual) 81.0 H Lymphocytes % (Manual) 4.0 L Monocytes % (Manual) Eosinophils % (Manual) Basophils % (Manual) Nucleated RBC % Seg Neutrophils # Seg Neutrophils # Man 12.1 H Lymphocytes # (Manual) 0.6 L Monocytes # (Manual) Eosinophils # (Manual) Basophils # (Manual) PT INR Fibrinogen dRVVT Confirm Interp Factor V Activity POC ABG pH POC ABG pCO2 POC ABG pO2 ABG pO2 ABG HCO3 ABG Base Excess ABG Hemoglobin Oxyhemoglobin Sodium 133 L Potassium 3.4 L Chloride 92.5 L Carbon Dioxide 21 L BUN 33 H Creatinine 3.0 H Glucose POC Glucose Lactic Acid Calcium 6.6 L Phosphorus Magnesium 1.40 L Direct Bilirubin 0.9 H AST ALT Alkaline Phosphatase Lactate Dehydrogenase Troponin T C-Reactive Protein Total Protein 4.3 L Albumin 1.3 L Prealbumin Triglycerides Cholesterol LDL Cholesterol Direct HDL Cholesterol PTH Intact Urine pH Urine WBC (Auto) Urine Creatinine Urine Total Protein Fluid Total Protein Vancomycin Trough Rheumatoid Factor Complement C4 Miscellaneous Test Crossmatch 09/29/16 09/29/16 09/30/16 17:52 20:12 00:07 WBC RBC Hgb Hct MCV MCH MCHC RDW Plt Count Lymph % (Auto) [place] % (Auto) Lymph # [place] # Baso # Seg Neutrophils % Seg Neuts % (Manual) Lymphocytes % (Manual) Monocytes % (Manual) Eosinophils % (Manual) Basophils % (Manual) Nucleated RBC % Seg Neutrophils # Seg Neutrophils # Man Lymphocytes # (Manual) Monocytes # (Manual) Eosinophils # (Manual) Basophils # (Manual) PT INR Fibrinogen dRVVT Confirm Interp Factor V Activity POC ABG pH POC ABG pCO2 POC ABG pO2 ABG pO2 ABG HCO3 ABG Base Excess ABG Hemoglobin Oxyhemoglobin Sodium Potassium Chloride Carbon Dioxide BUN Creatinine Glucose POC Glucose 50 L 51 L Lactic Acid Calcium Phosphorus Magnesium Direct Bilirubin AST ALT Alkaline Phosphatase Lactate Dehydrogenase Troponin T 0.204 H* C-Reactive Protein Total Protein Albumin Prealbumin Triglycerides Cholesterol 31 L LDL Cholesterol Direct 4 L HDL Cholesterol 3 L PTH Intact Urine pH Urine WBC (Auto) Urine Creatinine Urine Total Protein Fluid Total Protein Vancomycin Trough Rheumatoid Factor Complement C4 Miscellaneous Test Crossmatch 09/30/16 09/30/16 09/30/16 01:30 05:15 06:10 WBC RBC Hgb Hct MCV MCH MCHC RDW Plt Count Lymph % (Auto) [place] % (Auto) Lymph # [place] # Baso # Seg Neutrophils % Seg Neuts % (Manual) Lymphocytes % (Manual) Monocytes % (Manual) Eosinophils % (Manual) Basophils % (Manual) Nucleated RBC % Seg Neutrophils # Seg Neutrophils # Man Lymphocytes # (Manual) Monocytes # (Manual) Eosinophils # (Manual) Basophils # (Manual) PT INR Fibrinogen dRVVT Confirm Interp Factor V Activity POC ABG pH POC ABG pCO2 POC ABG pO2 ABG pO2 ABG HCO3 ABG Base Excess ABG Hemoglobin Oxyhemoglobin Sodium 133 L Potassium 3.2 L Chloride 93.2 L Carbon Dioxide 19 L BUN 36 H Creatinine 3.2 H Glucose 104 H POC Glucose 167 H 146 H Lactic Acid Calcium 6.4 L Phosphorus Magnesium 1.60 L Direct Bilirubin AST ALT Alkaline Phosphatase Lactate Dehydrogenase Troponin T C-Reactive Protein Total Protein Albumin Prealbumin Triglycerides Cholesterol LDL Cholesterol Direct HDL Cholesterol PTH Intact Urine pH Urine WBC (Auto) Urine Creatinine Urine Total Protein Fluid Total Protein Vancomycin Trough Rheumatoid Factor Complement C4 Miscellaneous Test Crossmatch 09/30/16 09/30/16 09/30/16 11:26 13:39 18:38 WBC RBC Hgb Hct MCV MCH MCHC RDW Plt Count Lymph % (Auto) [place] % (Auto) Lymph # [place] # Baso # Seg Neutrophils % Seg Neuts % (Manual) Lymphocytes % (Manual) Monocytes % (Manual) Eosinophils % (Manual) Basophils % (Manual) Nucleated RBC % Seg Neutrophils # Seg Neutrophils # Man Lymphocytes # (Manual) Monocytes # (Manual) Eosinophils # (Manual) Basophils # (Manual) PT INR Fibrinogen dRVVT Confirm Interp Factor V Activity POC ABG pH 7.479 H POC ABG pCO2 29.8 L POC ABG pO2 117 H ABG pO2 ABG HCO3 ABG Base Excess ABG Hemoglobin Oxyhemoglobin Sodium Potassium Chloride Carbon Dioxide BUN Creatinine Glucose POC Glucose 140 H 122 H Lactic Acid Calcium Phosphorus Magnesium Direct Bilirubin AST ALT Alkaline Phosphatase Lactate Dehydrogenase Troponin T C-Reactive Protein Total Protein Albumin Prealbumin Triglycerides Cholesterol LDL Cholesterol Direct HDL Cholesterol PTH Intact Urine pH Urine WBC (Auto) Urine Creatinine Urine Total Protein Fluid Total Protein Vancomycin Trough Rheumatoid Factor Complement C4 Miscellaneous Test Crossmatch 10/01/16 10/01/16 10/01/16 06:00 06:00 12:37 WBC 12.6 H RBC 2.75 L Hgb 7.3 L Hct 23.3 L MCV MCH 27 L MCHC RDW 20.6 H Plt Count 72 L Lymph % (Auto) [place] % (Auto) Lymph # [place] # Baso # Seg Neutrophils % Seg Neuts % (Manual) 31.0 L Lymphocytes % (Manual) 8.0 L Monocytes % (Manual) Eosinophils % (Manual) Basophils % (Manual) Nucleated RBC % 3.0 H Seg Neutrophils # Seg Neutrophils # Man Lymphocytes # (Manual) 1.0 L Monocytes # (Manual) Eosinophils # (Manual) Basophils # (Manual) PT INR Fibrinogen dRVVT Confirm Interp Factor V Activity POC ABG pH POC ABG pCO2 POC ABG pO2 ABG pO2 ABG HCO3 ABG Base Excess ABG Hemoglobin Oxyhemoglobin Sodium 127 L Potassium Chloride 86.8 L Carbon Dioxide 20 L BUN 42 H Creatinine 3.5 H Glucose POC Glucose 65 L Lactic Acid Calcium 7.0 L Phosphorus Magnesium Direct Bilirubin AST ALT Alkaline Phosphatase Lactate Dehydrogenase Troponin T C-Reactive Protein Total Protein Albumin Prealbumin Triglycerides Cholesterol LDL Cholesterol Direct HDL Cholesterol PTH Intact Urine pH Urine WBC (Auto) Urine Creatinine Urine Total Protein Fluid Total Protein Vancomycin Trough Rheumatoid Factor Complement C4 Miscellaneous Test Crossmatch 10/01/16 10/01/16 10/02/16 17:39 23:32 00:59 WBC RBC Hgb Hct MCV MCH MCHC RDW Plt Count Lymph % (Auto) [place] % (Auto) Lymph # [place] # Baso # Seg Neutrophils % Seg Neuts % (Manual) Lymphocytes % (Manual) Monocytes % (Manual) Eosinophils % (Manual) Basophils % (Manual) Nucleated RBC % Seg Neutrophils # Seg Neutrophils # Man Lymphocytes # (Manual) Monocytes # (Manual) Eosinophils # (Manual) Basophils # (Manual) PT INR Fibrinogen dRVVT Confirm Interp Factor V Activity POC ABG pH POC ABG pCO2 POC ABG pO2 ABG pO2 ABG HCO3 ABG Base Excess ABG Hemoglobin Oxyhemoglobin Sodium Potassium Chloride Carbon Dioxide BUN Creatinine Glucose POC Glucose 107 H 52 L 145 H Lactic Acid Calcium Phosphorus Magnesium Direct Bilirubin AST ALT Alkaline Phosphatase Lactate Dehydrogenase Troponin T C-Reactive Protein Total Protein Albumin Prealbumin Triglycerides Cholesterol LDL Cholesterol Direct HDL Cholesterol PTH Intact Urine pH Urine WBC (Auto) Urine Creatinine Urine Total Protein Fluid Total Protein Vancomycin Trough Rheumatoid Factor Complement C4 Miscellaneous Test Crossmatch 10/02/16 10/02/16 10/02/16 10:30 10:50 10:50 WBC 14.7 H RBC 2.76 L Hgb 7.4 L Hct 23.6 L MCV MCH 27 L MCHC RDW 20.2 H Plt Count 79 L Lymph % (Auto) [place] % (Auto) Lymph # [place] # Baso # Seg Neutrophils % Seg Neuts % (Manual) 86.0 H Lymphocytes % (Manual) 6.0 L Monocytes % (Manual) Eosinophils % (Manual) Basophils % (Manual) Nucleated RBC % Seg Neutrophils # Seg Neutrophils # Man 12.6 H Lymphocytes # (Manual) 0.9 L Monocytes # (Manual) Eosinophils # (Manual) Basophils # (Manual) PT INR Fibrinogen dRVVT Confirm Interp Factor V Activity POC ABG pH 7.486 H POC ABG pCO2 30.1 L POC ABG pO2 108 H ABG pO2 ABG HCO3 ABG Base Excess ABG Hemoglobin Oxyhemoglobin Sodium 131 L Potassium 3.4 L Chloride 89.9 L Carbon Dioxide BUN 26 H Creatinine 2.6 H Glucose POC Glucose Lactic Acid Calcium 7.0 L Phosphorus Magnesium Direct Bilirubin AST ALT Alkaline Phosphatase Lactate Dehydrogenase Troponin T C-Reactive Protein Total Protein Albumin Prealbumin Triglycerides Cholesterol LDL Cholesterol Direct HDL Cholesterol PTH Intact Urine pH Urine WBC (Auto) Urine Creatinine Urine Total Protein Fluid Total Protein Vancomycin Trough Rheumatoid Factor Complement C4 Miscellaneous Test Crossmatch 10/02/16 10/03/16 10/03/16 23:45 00:45 05:10 WBC 12.9 H RBC 2.77 L Hgb 7.6 L Hct 23.7 L MCV MCH 27 L MCHC RDW 19.7 H Plt Count 89 L Lymph % (Auto) [place] % (Auto) Lymph # [place] # Baso # Seg Neutrophils % Seg Neuts % (Manual) Lymphocytes % (Manual) 8.0 L Monocytes % (Manual) Eosinophils % (Manual) Basophils % (Manual) Nucleated RBC % Seg Neutrophils # 11.9 H Seg Neutrophils # Man Lymphocytes # (Manual) 1.0 L Monocytes # (Manual) Eosinophils # (Manual) Basophils # (Manual) PT INR Fibrinogen dRVVT Confirm Interp Factor V Activity POC ABG pH POC ABG pCO2 POC ABG pO2 ABG pO2 ABG HCO3 ABG Base Excess ABG Hemoglobin Oxyhemoglobin Sodium Potassium Chloride Carbon Dioxide BUN Creatinine Glucose POC Glucose 55 L 199 H Lactic Acid Calcium Phosphorus Magnesium Direct Bilirubin AST ALT Alkaline Phosphatase Lactate Dehydrogenase Troponin T C-Reactive Protein Total Protein Albumin Prealbumin Triglycerides Cholesterol LDL Cholesterol Direct HDL Cholesterol PTH Intact Urine pH Urine WBC (Auto) Urine Creatinine Urine Total Protein Fluid Total Protein Vancomycin Trough Rheumatoid Factor Complement C4 Miscellaneous Test Crossmatch 10/03/16 10/03/16 10/03/16 05:10 12:14 13:18 WBC RBC Hgb Hct MCV MCH MCHC RDW Plt Count Lymph % (Auto) [place] % (Auto) Lymph # [place] # Baso # Seg Neutrophils % Seg Neuts % (Manual) Lymphocytes % (Manual) Monocytes % (Manual) Eosinophils % (Manual) Basophils % (Manual) Nucleated RBC % Seg Neutrophils # Seg Neutrophils # Man Lymphocytes # (Manual) Monocytes # (Manual) Eosinophils # (Manual) Basophils # (Manual) PT INR Fibrinogen dRVVT Confirm Interp Factor V Activity POC ABG pH POC ABG pCO2 POC ABG pO2 ABG pO2 ABG HCO3 ABG Base Excess ABG Hemoglobin Oxyhemoglobin Sodium 129 L Potassium 3.3 L Chloride 88.8 L Carbon Dioxide 20 L BUN 29 H Creatinine 2.8 H Glucose POC Glucose 68 L 127 H Lactic Acid Calcium 7.2 L Phosphorus Magnesium Direct Bilirubin AST ALT Alkaline Phosphatase Lactate Dehydrogenase Troponin T C-Reactive Protein Total Protein Albumin Prealbumin Triglycerides Cholesterol LDL Cholesterol Direct HDL Cholesterol PTH Intact Urine pH Urine WBC (Auto) Urine Creatinine Urine Total Protein Fluid Total Protein Vancomycin Trough Rheumatoid Factor Complement C4 Miscellaneous Test Crossmatch 10/03/16 10/03/16 10/03/16 14:42 18:21 19:09 WBC RBC Hgb Hct MCV MCH MCHC RDW Plt Count Lymph % (Auto) [place] % (Auto) Lymph # [place] # Baso # Seg Neutrophils % Seg Neuts % (Manual) Lymphocytes % (Manual) Monocytes % (Manual) Eosinophils % (Manual) Basophils % (Manual) Nucleated RBC % Seg Neutrophils # Seg Neutrophils # Man Lymphocytes # (Manual) Monocytes # (Manual) Eosinophils # (Manual) Basophils # (Manual) PT INR Fibrinogen dRVVT Confirm Interp Factor V Activity POC ABG pH 7.499 H POC ABG pCO2 28.4 L POC ABG pO2 44 L ABG pO2 ABG HCO3 ABG Base Excess ABG Hemoglobin Oxyhemoglobin Sodium Potassium Chloride Carbon Dioxide BUN Creatinine Glucose POC Glucose 64 L 205 H Lactic Acid Calcium Phosphorus Magnesium Direct Bilirubin AST ALT Alkaline Phosphatase Lactate Dehydrogenase Troponin T C-Reactive Protein Total Protein Albumin Prealbumin Triglycerides Cholesterol LDL Cholesterol Direct HDL Cholesterol PTH Intact Urine pH Urine WBC (Auto) Urine Creatinine Urine Total Protein Fluid Total Protein Vancomycin Trough Rheumatoid Factor Complement C4 Miscellaneous Test Crossmatch 10/03/16 10/04/16 10/04/16 23:33 04:18 06:30 WBC RBC 2.54 L Hgb 7.1 L Hct 21.7 L MCV MCH MCHC RDW 19.5 H Plt Count 76 L Lymph % (Auto) [place] % (Auto) Lymph # [place] # Baso # Seg Neutrophils % Seg Neuts % (Manual) 88.0 H Lymphocytes % (Manual) 6.0 L Monocytes % (Manual) Eosinophils % (Manual) Basophils % (Manual) Nucleated RBC % Seg Neutrophils # Seg Neutrophils # Man 8.8 H Lymphocytes # (Manual) 0.6 L Monocytes # (Manual) Eosinophils # (Manual) Basophils # (Manual) PT INR Fibrinogen dRVVT Confirm Interp Factor V Activity POC ABG pH 7.461 H POC ABG pCO2 33.6 L POC ABG pO2 211 H ABG pO2 ABG HCO3 ABG Base Excess ABG Hemoglobin Oxyhemoglobin Sodium Potassium Chloride Carbon Dioxide BUN Creatinine Glucose POC Glucose 136 H Lactic Acid Calcium Phosphorus Magnesium Direct Bilirubin AST ALT Alkaline Phosphatase Lactate Dehydrogenase Troponin T C-Reactive Protein Total Protein Albumin Prealbumin Triglycerides Cholesterol LDL Cholesterol Direct HDL Cholesterol PTH Intact Urine pH Urine WBC (Auto) Urine Creatinine Urine Total Protein Fluid Total Protein Vancomycin Trough Rheumatoid Factor Complement C4 Miscellaneous Test Crossmatch 10/04/16 10/04/16 10/04/16 06:30 11:45 17:54 WBC RBC Hgb Hct MCV MCH MCHC RDW Plt Count Lymph % (Auto) [place] % (Auto) Lymph # [place] # Baso # Seg Neutrophils % Seg Neuts % (Manual) Lymphocytes % (Manual) Monocytes % (Manual) Eosinophils % (Manual) Basophils % (Manual) Nucleated RBC % Seg Neutrophils # Seg Neutrophils # Man Lymphocytes # (Manual) Monocytes # (Manual) Eosinophils # (Manual) Basophils # (Manual) PT INR Fibrinogen dRVVT Confirm Interp Factor V Activity POC ABG pH POC ABG pCO2 POC ABG pO2 ABG pO2 ABG HCO3 ABG Base Excess ABG Hemoglobin Oxyhemoglobin Sodium 128 L Potassium Chloride 87.4 L Carbon Dioxide 20 L BUN 34 H Creatinine 2.9 H Glucose 127 H POC Glucose 158 H 160 H Lactic Acid Calcium 7.4 L Phosphorus Magnesium Direct Bilirubin AST ALT Alkaline Phosphatase Lactate Dehydrogenase Troponin T C-Reactive Protein Total Protein Albumin Prealbumin Triglycerides Cholesterol LDL Cholesterol Direct HDL Cholesterol PTH Intact Urine pH Urine WBC (Auto) Urine Creatinine Urine Total Protein Fluid Total Protein Vancomycin Trough Rheumatoid Factor Complement C4 Miscellaneous Test Crossmatch 10/04/16 10/05/16 10/05/16 23:25 04:30 05:00 WBC RBC 2.64 L Hgb 7.5 L Hct 22.6 L MCV MCH MCHC RDW 19.3 H Plt Count 80 L Lymph % (Auto) [place] % (Auto) Lymph # [place] # Baso # Seg Neutrophils % Seg Neuts % (Manual) Lymphocytes % (Manual) 12.0 L Monocytes % (Manual) Eosinophils % (Manual) Basophils % (Manual) Nucleated RBC % Seg Neutrophils # Seg Neutrophils # Man Lymphocytes # (Manual) Monocytes # (Manual) Eosinophils # (Manual) Basophils # (Manual) PT INR Fibrinogen dRVVT Confirm Interp Factor V Activity POC ABG pH 7.475 H POC ABG pCO2 33.3 L POC ABG pO2 140 H ABG pO2 ABG HCO3 ABG Base Excess ABG Hemoglobin Oxyhemoglobin Sodium Potassium Chloride Carbon Dioxide BUN Creatinine Glucose POC Glucose 141 H Lactic Acid Calcium Phosphorus Magnesium Direct Bilirubin AST ALT Alkaline Phosphatase Lactate Dehydrogenase Troponin T C-Reactive Protein Total Protein Albumin Prealbumin Triglycerides Cholesterol LDL Cholesterol Direct HDL Cholesterol PTH Intact Urine pH Urine WBC (Auto) Urine Creatinine Urine Total Protein Fluid Total Protein Vancomycin Trough Rheumatoid Factor Complement C4 Miscellaneous Test Crossmatch 10/05/16 10/05/16 10/05/16 05:00 05:09 12:58 WBC RBC Hgb Hct MCV MCH MCHC RDW Plt Count Lymph % (Auto) [place] % (Auto) Lymph # [place] # Baso # Seg Neutrophils % Seg Neuts % (Manual) Lymphocytes % (Manual) Monocytes % (Manual) Eosinophils % (Manual) Basophils % (Manual) Nucleated RBC % Seg Neutrophils # Seg Neutrophils # Man Lymphocytes # (Manual) Monocytes # (Manual) Eosinophils # (Manual) Basophils # (Manual) PT INR Fibrinogen dRVVT Confirm Interp Factor V Activity POC ABG pH POC ABG pCO2 POC ABG pO2 ABG pO2 ABG HCO3 ABG Base Excess ABG Hemoglobin Oxyhemoglobin Sodium 131 L Potassium Chloride 94.0 L Carbon Dioxide 20 L BUN 22 H Creatinine 2.0 H Glucose 123 H POC Glucose 166 H 179 H Lactic Acid Calcium 7.7 L Phosphorus 2.20 L D Magnesium Direct Bilirubin AST ALT Alkaline Phosphatase Lactate Dehydrogenase Troponin T C-Reactive Protein Total Protein Albumin Prealbumin Triglycerides Cholesterol LDL Cholesterol Direct HDL Cholesterol PTH Intact Urine pH Urine WBC (Auto) Urine Creatinine Urine Total Protein Fluid Total Protein Vancomycin Trough Rheumatoid Factor Complement C4 Miscellaneous Test Crossmatch 10/05/16 10/05/16 10/05/16 15:50 18:53 23:12 WBC RBC Hgb Hct MCV MCH MCHC RDW Plt Count Lymph % (Auto) [place] % (Auto) Lymph # [place] # Baso # Seg Neutrophils % Seg Neuts % (Manual) Lymphocytes % (Manual) Monocytes % (Manual) Eosinophils % (Manual) Basophils % (Manual) Nucleated RBC % Seg Neutrophils # Seg Neutrophils # Man Lymphocytes # (Manual) Monocytes # (Manual) Eosinophils # (Manual) Basophils # (Manual) PT INR Fibrinogen dRVVT Confirm Interp Factor V Activity POC ABG pH POC ABG pCO2 POC ABG pO2 ABG pO2 ABG HCO3 ABG Base Excess ABG Hemoglobin Oxyhemoglobin Sodium Potassium Chloride Carbon Dioxide BUN Creatinine Glucose POC Glucose 150 H 164 H Lactic Acid Calcium Phosphorus Magnesium Direct Bilirubin AST ALT Alkaline Phosphatase Lactate Dehydrogenase Troponin T C-Reactive Protein Total Protein Albumin Prealbumin Triglycerides Cholesterol LDL Cholesterol Direct HDL Cholesterol PTH Intact Urine pH Urine WBC (Auto) Urine Creatinine Urine Total Protein Fluid Total Protein Vancomycin Trough Rheumatoid Factor Complement C4 Miscellaneous Test Crossmatch See Detail 10/06/16 10/06/16 10/06/16 03:50 03:50 04:53 WBC RBC 3.00 L Hgb 8.6 L Hct 25.8 L MCV MCH MCHC RDW 17.9 H Plt Count 65 L Lymph % (Auto) [place] % (Auto) Lymph # [place] # Baso # Seg Neutrophils % Seg Neuts % (Manual) 30.0 L Lymphocytes % (Manual) 5.0 L Monocytes % (Manual) Eosinophils % (Manual) Basophils % (Manual) Nucleated RBC % Seg Neutrophils # Seg Neutrophils # Man Lymphocytes # (Manual) 0.4 L Monocytes # (Manual) Eosinophils # (Manual) Basophils # (Manual) PT INR Fibrinogen dRVVT Confirm Interp Factor V Activity POC ABG pH 7.310 L POC ABG pCO2 49.0 H POC ABG pO2 ABG pO2 ABG HCO3 ABG Base Excess ABG Hemoglobin Oxyhemoglobin Sodium 133 L Potassium Chloride 95.9 L Carbon Dioxide BUN 26 H Creatinine 2.0 H Glucose 116 H POC Glucose Lactic Acid Calcium 7.8 L Phosphorus Magnesium Direct Bilirubin AST ALT Alkaline Phosphatase Lactate Dehydrogenase Troponin T C-Reactive Protein Total Protein Albumin Prealbumin Triglycerides Cholesterol LDL Cholesterol Direct HDL Cholesterol PTH Intact Urine pH Urine WBC (Auto) Urine Creatinine Urine Total Protein Fluid Total Protein Vancomycin Trough Rheumatoid Factor Complement C4 Miscellaneous Test Crossmatch 10/06/16 10/06/16 10/06/16 05:23 11:52 18:34 WBC RBC Hgb Hct MCV MCH MCHC RDW Plt Count Lymph % (Auto) [place] % (Auto) Lymph # [place] # Baso # Seg Neutrophils % Seg Neuts % (Manual) Lymphocytes % (Manual) Monocytes % (Manual) Eosinophils % (Manual) Basophils % (Manual) Nucleated RBC % Seg Neutrophils # Seg Neutrophils # Man Lymphocytes # (Manual) Monocytes # (Manual) Eosinophils # (Manual) Basophils # (Manual) PT INR Fibrinogen dRVVT Confirm Interp Factor V Activity POC ABG pH POC ABG pCO2 POC ABG pO2 ABG pO2 ABG HCO3 ABG Base Excess ABG Hemoglobin Oxyhemoglobin Sodium Potassium Chloride Carbon Dioxide BUN Creatinine Glucose POC Glucose 126 H 116 H 129 H Lactic Acid Calcium Phosphorus Magnesium Direct Bilirubin AST ALT Alkaline Phosphatase Lactate Dehydrogenase Troponin T C-Reactive Protein Total Protein Albumin Prealbumin Triglycerides Cholesterol LDL Cholesterol Direct HDL Cholesterol PTH Intact Urine pH Urine WBC (Auto) Urine Creatinine Urine Total Protein Fluid Total Protein Vancomycin Trough Rheumatoid Factor Complement C4 Miscellaneous Test Crossmatch 10/07/16 10/07/16 10/07/16 03:45 05:00 10:00 WBC 17.0 H RBC 2.68 L Hgb 7.3 L Hct 25.3 L MCV MCH 27 L MCHC 29 L RDW 19.6 H Plt Count 74 L Lymph % (Auto) [place] % (Auto) Lymph # [place] # Baso # Seg Neutrophils % Seg Neuts % (Manual) Lymphocytes % (Manual) 12.0 L Monocytes % (Manual) Eosinophils % (Manual) Basophils % (Manual) Nucleated RBC % 4.0 H Seg Neutrophils # Seg Neutrophils # Man 10.7 H Lymphocytes # (Manual) Monocytes # (Manual) Eosinophils # (Manual) Basophils # (Manual) PT INR Fibrinogen dRVVT Confirm Interp Factor V Activity POC ABG pH POC ABG pCO2 POC ABG pO2 ABG pO2 ABG HCO3 ABG Base Excess ABG Hemoglobin Oxyhemoglobin Sodium 130 L Potassium 3.2 L Chloride 93.9 L Carbon Dioxide 20 L BUN 44 H Creatinine 2.7 H Glucose 129 H POC Glucose Lactic Acid Calcium 7.4 L Phosphorus Magnesium Direct Bilirubin AST ALT 6 L Alkaline Phosphatase 195 H Lactate Dehydrogenase Troponin T C-Reactive Protein Total Protein 4.9 L Albumin 1.0 L Prealbumin Triglycerides Cholesterol LDL Cholesterol Direct HDL Cholesterol PTH Intact Urine pH Urine WBC (Auto) Urine Creatinine Urine Total Protein Fluid Total Protein Vancomycin Trough Rheumatoid Factor Complement C4 Miscellaneous Test Flexitest 1 H Crossmatch 10/07/16 10/07/16 10/07/16 10:00 11:24 18:10 WBC RBC Hgb Hct MCV MCH MCHC RDW Plt Count Lymph % (Auto) [place] % (Auto) Lymph # [place] # Baso # Seg Neutrophils % Seg Neuts % (Manual) Lymphocytes % (Manual) Monocytes % (Manual) Eosinophils % (Manual) Basophils % (Manual) Nucleated RBC % Seg Neutrophils # Seg Neutrophils # Man Lymphocytes # (Manual) Monocytes # (Manual) Eosinophils # (Manual) Basophils # (Manual) PT INR Fibrinogen dRVVT Confirm Interp Factor V Activity POC ABG pH POC ABG pCO2 POC ABG pO2 ABG pO2 ABG HCO3 ABG Base Excess ABG Hemoglobin Oxyhemoglobin Sodium Potassium Chloride Carbon Dioxide BUN Creatinine Glucose POC Glucose 116 H 130 H Lactic Acid Calcium Phosphorus Magnesium Direct Bilirubin AST ALT Alkaline Phosphatase Lactate Dehydrogenase Troponin T C-Reactive Protein 19.40 H Total Protein Albumin Prealbumin Triglycerides Cholesterol LDL Cholesterol Direct HDL Cholesterol PTH Intact Urine pH Urine WBC (Auto) Urine Creatinine Urine Total Protein Fluid Total Protein Vancomycin Trough Rheumatoid Factor Complement C4 Miscellaneous Test Crossmatch 10/07/16 10/08/16 10/08/16 18:30 00:00 04:00 WBC RBC Hgb Hct MCV MCH MCHC RDW Plt Count Lymph % (Auto) [place] % (Auto) Lymph # [place] # Baso # Seg Neutrophils % Seg Neuts % (Manual) Lymphocytes % (Manual) Monocytes % (Manual) Eosinophils % (Manual) Basophils % (Manual) Nucleated RBC % Seg Neutrophils # Seg Neutrophils # Man Lymphocytes # (Manual) Monocytes # (Manual) Eosinophils # (Manual) Basophils # (Manual) PT INR Fibrinogen dRVVT Confirm Interp Factor V Activity POC ABG pH POC ABG pCO2 POC ABG pO2 ABG pO2 ABG HCO3 ABG Base Excess ABG Hemoglobin Oxyhemoglobin Sodium 132 L Potassium 3.3 L Chloride 93.6 L Carbon Dioxide 17 L BUN 59 H Creatinine 2.7 H Glucose 121 H POC Glucose 122 H Lactic Acid Calcium 7.6 L Phosphorus Magnesium Direct Bilirubin AST ALT Alkaline Phosphatase Lactate Dehydrogenase Troponin T C-Reactive Protein Total Protein Albumin Prealbumin Triglycerides Cholesterol LDL Cholesterol Direct HDL Cholesterol PTH Intact Urine pH Urine WBC (Auto) > 182.0 H Urine Creatinine Urine Total Protein Fluid Total Protein Vancomycin Trough Rheumatoid Factor Complement C4 Miscellaneous Test Crossmatch 10/08/16 10/08/16 10/08/16 04:30 05:30 11:51 WBC RBC 5.15 H Hgb 14.4 H D Hct 44.5 H D MCV MCH MCHC RDW 19.5 H Plt Count 56 L Lymph % (Auto) [place] % (Auto) Lymph # [place] # Baso # Seg Neutrophils % Seg Neuts % (Manual) 24.0 L Lymphocytes % (Manual) 8.0 L Monocytes % (Manual) Eosinophils % (Manual) Basophils % (Manual) Nucleated RBC % 9.0 H Seg Neutrophils # Seg Neutrophils # Man Lymphocytes # (Manual) 0.7 L Monocytes # (Manual) Eosinophils # (Manual) Basophils # (Manual) PT INR Fibrinogen dRVVT Confirm Interp Factor V Activity POC ABG pH POC ABG pCO2 POC ABG pO2 ABG pO2 ABG HCO3 ABG Base Excess ABG Hemoglobin Oxyhemoglobin Sodium Potassium Chloride Carbon Dioxide BUN Creatinine Glucose POC Glucose 125 H 150 H Lactic Acid Calcium Phosphorus Magnesium Direct Bilirubin AST ALT Alkaline Phosphatase Lactate Dehydrogenase Troponin T C-Reactive Protein Total Protein Albumin Prealbumin Triglycerides Cholesterol LDL Cholesterol Direct HDL Cholesterol PTH Intact Urine pH Urine WBC (Auto) Urine Creatinine Urine Total Protein Fluid Total Protein Vancomycin Trough Rheumatoid Factor Complement C4 Miscellaneous Test Crossmatch 10/08/16 10/08/16 10/08/16 12:49 17:07 19:30 WBC RBC Hgb 7.1 L D Hct 22.4 L D MCV MCH MCHC RDW Plt Count Lymph % (Auto) [place] % (Auto) Lymph # [place] # Baso # Seg Neutrophils % Seg Neuts % (Manual) Lymphocytes % (Manual) Monocytes % (Manual) Eosinophils % (Manual) Basophils % (Manual) Nucleated RBC % Seg Neutrophils # Seg Neutrophils # Man Lymphocytes # (Manual) Monocytes # (Manual) Eosinophils # (Manual) Basophils # (Manual) PT INR Fibrinogen dRVVT Confirm Interp Factor V Activity POC ABG pH POC ABG pCO2 28.2 L POC ABG pO2 111 H ABG pO2 ABG HCO3 ABG Base Excess ABG Hemoglobin Oxyhemoglobin Sodium Potassium Chloride Carbon Dioxide BUN Creatinine Glucose POC Glucose 145 H Lactic Acid Calcium Phosphorus Magnesium Direct Bilirubin AST ALT Alkaline Phosphatase Lactate Dehydrogenase Troponin T C-Reactive Protein Total Protein Albumin Prealbumin Triglycerides Cholesterol LDL Cholesterol Direct HDL Cholesterol PTH Intact Urine pH Urine WBC (Auto) Urine Creatinine Urine Total Protein Fluid Total Protein Vancomycin Trough Rheumatoid Factor Complement C4 Miscellaneous Test Crossmatch 10/08/16 10/09/16 10/09/16 19:30 03:45 03:45 WBC 12.6 H RBC 2.36 L Hgb 6.7 L Hct 21.1 L MCV MCH MCHC RDW 19.5 H Plt Count 75 L Lymph % (Auto) [place] % (Auto) Lymph # [place] # Baso # Seg Neutrophils % Seg Neuts % (Manual) Lymphocytes % (Manual) Monocytes % (Manual) 10.0 H Eosinophils % (Manual) Basophils % (Manual) Nucleated RBC % 3.0 H Seg Neutrophils # Seg Neutrophils # Man Lymphocytes # (Manual) Monocytes # (Manual) 1.3 H Eosinophils # (Manual) Basophils # (Manual) PT 18.0 H INR 1.41 H Fibrinogen dRVVT Confirm Interp Factor V Activity POC ABG pH POC ABG pCO2 POC ABG pO2 ABG pO2 ABG HCO3 ABG Base Excess ABG Hemoglobin Oxyhemoglobin Sodium 135 L Potassium Chloride Carbon Dioxide 17 L BUN 81 H Creatinine 3.2 H Glucose 109 H POC Glucose Lactic Acid Calcium 7.4 L Phosphorus 4.60 H D Magnesium Direct Bilirubin AST ALT Alkaline Phosphatase Lactate Dehydrogenase Troponin T C-Reactive Protein Total Protein Albumin Prealbumin Triglycerides Cholesterol LDL Cholesterol Direct HDL Cholesterol PTH Intact Urine pH Urine WBC (Auto) Urine Creatinine Urine Total Protein Fluid Total Protein Vancomycin Trough Rheumatoid Factor Complement C4 Miscellaneous Test Crossmatch 10/09/16 10/09/16 10/09/16 03:45 05:14 07:20 WBC RBC Hgb Hct MCV MCH MCHC RDW Plt Count Lymph % (Auto) [place] % (Auto) Lymph # [place] # Baso # Seg Neutrophils % Seg Neuts % (Manual) Lymphocytes % (Manual) Monocytes % (Manual) Eosinophils % (Manual) Basophils % (Manual) Nucleated RBC % Seg Neutrophils # Seg Neutrophils # Man Lymphocytes # (Manual) Monocytes # (Manual) Eosinophils # (Manual) Basophils # (Manual) PT 19.0 H INR 1.51 H Fibrinogen dRVVT Confirm Interp Factor V Activity POC ABG pH POC ABG pCO2 POC ABG pO2 ABG pO2 ABG HCO3 ABG Base Excess ABG Hemoglobin Oxyhemoglobin Sodium Potassium Chloride Carbon Dioxide BUN Creatinine Glucose POC Glucose 151 H Lactic Acid Calcium Phosphorus Magnesium Direct Bilirubin AST ALT Alkaline Phosphatase Lactate Dehydrogenase Troponin T C-Reactive Protein Total Protein Albumin Prealbumin Triglycerides Cholesterol LDL Cholesterol Direct HDL Cholesterol PTH Intact Urine pH Urine WBC (Auto) Urine Creatinine Urine Total Protein Fluid Total Protein Vancomycin Trough Rheumatoid Factor Complement C4 Miscellaneous Test Crossmatch See Detail 10/09/16 10/09/16 10/09/16 11:46 16:20 16:43 WBC RBC Hgb 7.2 L Hct 22.2 L MCV MCH MCHC RDW Plt Count Lymph % (Auto) [place] % (Auto) Lymph # [place] # Baso # Seg Neutrophils % Seg Neuts % (Manual) Lymphocytes % (Manual) Monocytes % (Manual) Eosinophils % (Manual) Basophils % (Manual) Nucleated RBC % Seg Neutrophils # Seg Neutrophils # Man Lymphocytes # (Manual) Monocytes # (Manual) Eosinophils # (Manual) Basophils # (Manual) PT INR Fibrinogen dRVVT Confirm Interp Factor V Activity POC ABG pH POC ABG pCO2 POC ABG pO2 ABG pO2 ABG HCO3 ABG Base Excess ABG Hemoglobin Oxyhemoglobin Sodium Potassium Chloride Carbon Dioxide BUN Creatinine Glucose POC Glucose 133 H 141 H Lactic Acid Calcium Phosphorus Magnesium Direct Bilirubin AST ALT Alkaline Phosphatase Lactate Dehydrogenase Troponin T C-Reactive Protein Total Protein Albumin Prealbumin Triglycerides Cholesterol LDL Cholesterol Direct HDL Cholesterol PTH Intact Urine pH Urine WBC (Auto) Urine Creatinine Urine Total Protein Fluid Total Protein Vancomycin Trough Rheumatoid Factor Complement C4 Miscellaneous Test Crossmatch 10/10/16 10/10/16 10/10/16 05:00 05:00 11:19 WBC 18.5 H RBC 2.19 L Hgb 6.4 L Hct 19.6 L* MCV MCH MCHC RDW 19.3 H Plt Count 93 L Lymph % (Auto) [place] % (Auto) Lymph # [place] # Baso # Seg Neutrophils % Seg Neuts % (Manual) Lymphocytes % (Manual) 10.0 L Monocytes % (Manual) Eosinophils % (Manual) Basophils % (Manual) Nucleated RBC % 4.0 H Seg Neutrophils # Seg Neutrophils # Man 11.3 H Lymphocytes # (Manual) Monocytes # (Manual) Eosinophils # (Manual) Basophils # (Manual) PT INR Fibrinogen dRVVT Confirm Interp Factor V Activity POC ABG pH POC ABG pCO2 POC ABG pO2 ABG pO2 ABG HCO3 ABG Base Excess ABG Hemoglobin Oxyhemoglobin Sodium Potassium 5.7 H D Chloride Carbon Dioxide 16 L BUN 94 H Creatinine 3.1 H Glucose 131 H POC Glucose 153 H Lactic Acid Calcium 8.2 L Phosphorus 5.10 H Magnesium 2.40 H Direct Bilirubin 0.3 H AST ALT < 5 L Alkaline Phosphatase 319 H Lactate Dehydrogenase Troponin T C-Reactive Protein Total Protein 5.1 L Albumin 1.0 L Prealbumin Triglycerides Cholesterol LDL Cholesterol Direct HDL Cholesterol PTH Intact Urine pH Urine WBC (Auto) Urine Creatinine Urine Total Protein Fluid Total Protein Vancomycin Trough Rheumatoid Factor Complement C4 Miscellaneous Test Crossmatch 10/10/16 10/10/16 10/11/16 17:50 23:30 04:15 WBC RBC Hgb Hct MCV MCH MCHC RDW Plt Count Lymph % (Auto) [place] % (Auto) Lymph # [place] # Baso # Seg Neutrophils % Seg Neuts % (Manual) Lymphocytes % (Manual) Monocytes % (Manual) Eosinophils % (Manual) Basophils % (Manual) Nucleated RBC % Seg Neutrophils # Seg Neutrophils # Man Lymphocytes # (Manual) Monocytes # (Manual) Eosinophils # (Manual) Basophils # (Manual) PT INR Fibrinogen dRVVT Confirm Interp Factor V Activity POC ABG pH POC ABG pCO2 POC ABG pO2 ABG pO2 ABG HCO3 ABG Base Excess ABG Hemoglobin Oxyhemoglobin Sodium Potassium Chloride 96.4 L Carbon Dioxide 21 L BUN 57 H Creatinine 2.1 H Glucose 151 H POC Glucose 146 H 141 H Lactic Acid Calcium 8.3 L Phosphorus Magnesium Direct Bilirubin AST ALT Alkaline Phosphatase Lactate Dehydrogenase Troponin T C-Reactive Protein Total Protein Albumin Prealbumin Triglycerides Cholesterol LDL Cholesterol Direct HDL Cholesterol PTH Intact Urine pH Urine WBC (Auto) Urine Creatinine Urine Total Protein Fluid Total Protein Vancomycin Trough Rheumatoid Factor Complement C4 Miscellaneous Test Crossmatch 10/11/16 10/11/16 10/11/16 04:15 04:15 05:30 WBC 28.3 H RBC 3.12 L Hgb 9.3 L Hct 28.7 L D MCV MCH MCHC RDW 17.7 H Plt Count 128 L Lymph % (Auto) [place] % (Auto) Lymph # [place] # Baso # Seg Neutrophils % Seg Neuts % (Manual) Lymphocytes % (Manual) Monocytes % (Manual) Eosinophils % (Manual) Basophils % (Manual) Nucleated RBC % Seg Neutrophils # Seg Neutrophils # Man Lymphocytes # (Manual) Monocytes # (Manual) Eosinophils # (Manual) Basophils # (Manual) PT INR Fibrinogen dRVVT Confirm Interp Factor V Activity POC ABG pH POC ABG pCO2 POC ABG pO2 ABG pO2 ABG HCO3 ABG Base Excess ABG Hemoglobin Oxyhemoglobin Sodium Potassium Chloride Carbon Dioxide BUN Creatinine Glucose POC Glucose 167 H Lactic Acid Calcium Phosphorus Magnesium Direct Bilirubin AST ALT Alkaline Phosphatase Lactate Dehydrogenase Troponin T C-Reactive Protein 15.80 H Total Protein Albumin Prealbumin Triglycerides Cholesterol LDL Cholesterol Direct HDL Cholesterol PTH Intact Urine pH Urine WBC (Auto) Urine Creatinine Urine Total Protein Fluid Total Protein Vancomycin Trough Rheumatoid Factor Complement C4 Miscellaneous Test Crossmatch 10/11/16 10/11/16 10/11/16 11:40 15:49 23:57 WBC RBC Hgb Hct MCV MCH MCHC RDW Plt Count Lymph % (Auto) [place] % (Auto) Lymph # [place] # Baso # Seg Neutrophils % Seg Neuts % (Manual) Lymphocytes % (Manual) Monocytes % (Manual) Eosinophils % (Manual) Basophils % (Manual) Nucleated RBC % Seg Neutrophils # Seg Neutrophils # Man Lymphocytes # (Manual) Monocytes # (Manual) Eosinophils # (Manual) Basophils # (Manual) PT INR Fibrinogen dRVVT Confirm Interp Factor V Activity POC ABG pH POC ABG pCO2 POC ABG pO2 ABG pO2 ABG HCO3 ABG Base Excess ABG Hemoglobin Oxyhemoglobin Sodium Potassium Chloride Carbon Dioxide BUN Creatinine Glucose POC Glucose 139 H 168 H 161 H Lactic Acid Calcium Phosphorus Magnesium Direct Bilirubin AST ALT Alkaline Phosphatase Lactate Dehydrogenase Troponin T C-Reactive Protein Total Protein Albumin Prealbumin Triglycerides Cholesterol LDL Cholesterol Direct HDL Cholesterol PTH Intact Urine pH Urine WBC (Auto) Urine Creatinine Urine Total Protein Fluid Total Protein Vancomycin Trough Rheumatoid Factor Complement C4 Miscellaneous Test Crossmatch 10/12/16 10/12/16 10/12/16 04:40 04:40 05:44 WBC 22.5 H RBC 2.88 L Hgb 8.8 L Hct 26.8 L MCV MCH MCHC RDW 17.8 H Plt Count Lymph % (Auto) [place] % (Auto) Lymph # [place] # Baso # Seg Neutrophils % Seg Neuts % (Manual) Lymphocytes % (Manual) Monocytes % (Manual) Eosinophils % (Manual) Basophils % (Manual) Nucleated RBC % Seg Neutrophils # Seg Neutrophils # Man Lymphocytes # (Manual) Monocytes # (Manual) Eosinophils # (Manual) Basophils # (Manual) PT INR Fibrinogen dRVVT Confirm Interp Factor V Activity POC ABG pH POC ABG pCO2 POC ABG pO2 ABG pO2 ABG HCO3 ABG Base Excess ABG Hemoglobin Oxyhemoglobin Sodium 134 L Potassium Chloride 93.0 L Carbon Dioxide BUN 74 H Creatinine 2.5 H Glucose 137 H POC Glucose 158 H Lactic Acid Calcium 8.2 L Phosphorus Magnesium Direct Bilirubin AST ALT Alkaline Phosphatase Lactate Dehydrogenase Troponin T C-Reactive Protein Total Protein Albumin Prealbumin Triglycerides Cholesterol LDL Cholesterol Direct HDL Cholesterol PTH Intact Urine pH Urine WBC (Auto) Urine Creatinine Urine Total Protein Fluid Total Protein Vancomycin Trough Rheumatoid Factor Complement C4 Miscellaneous Test Crossmatch 10/12/16 10/12/16 10/12/16 12:27 18:18 23:46 WBC RBC Hgb Hct MCV MCH MCHC RDW Plt Count Lymph % (Auto) [place] % (Auto) Lymph # [place] # Baso # Seg Neutrophils % Seg Neuts % (Manual) Lymphocytes % (Manual) Monocytes % (Manual) Eosinophils % (Manual) Basophils % (Manual) Nucleated RBC % Seg Neutrophils # Seg Neutrophils # Man Lymphocytes # (Manual) Monocytes # (Manual) Eosinophils # (Manual) Basophils # (Manual) PT INR Fibrinogen dRVVT Confirm Interp Factor V Activity POC ABG pH POC ABG pCO2 POC ABG pO2 ABG pO2 ABG HCO3 ABG Base Excess ABG Hemoglobin Oxyhemoglobin Sodium Potassium Chloride Carbon Dioxide BUN Creatinine Glucose POC Glucose 153 H 140 H 150 H Lactic Acid Calcium Phosphorus Magnesium Direct Bilirubin AST ALT Alkaline Phosphatase Lactate Dehydrogenase Troponin T C-Reactive Protein Total Protein Albumin Prealbumin Triglycerides Cholesterol LDL Cholesterol Direct HDL Cholesterol PTH Intact Urine pH Urine WBC (Auto) Urine Creatinine Urine Total Protein Fluid Total Protein Vancomycin Trough Rheumatoid Factor Complement C4 Miscellaneous Test Crossmatch 10/13/16 10/13/16 10/13/16 06:22 09:20 12:29 WBC RBC Hgb Hct MCV MCH MCHC RDW Plt Count Lymph % (Auto) [place] % (Auto) Lymph # [place] # Baso # Seg Neutrophils % Seg Neuts % (Manual) Lymphocytes % (Manual) Monocytes % (Manual) Eosinophils % (Manual) Basophils % (Manual) Nucleated RBC % Seg Neutrophils # Seg Neutrophils # Man Lymphocytes # (Manual) Monocytes # (Manual) Eosinophils # (Manual) Basophils # (Manual) PT INR Fibrinogen dRVVT Confirm Interp Factor V Activity POC ABG pH POC ABG pCO2 POC ABG pO2 ABG pO2 ABG HCO3 ABG Base Excess ABG Hemoglobin Oxyhemoglobin Sodium Potassium Chloride Carbon Dioxide BUN Creatinine Glucose POC Glucose 165 H 193 H Lactic Acid Calcium Phosphorus Magnesium Direct Bilirubin AST ALT Alkaline Phosphatase Lactate Dehydrogenase Troponin T C-Reactive Protein Total Protein Albumin Prealbumin Triglycerides Cholesterol LDL Cholesterol Direct HDL Cholesterol PTH Intact Urine pH Urine WBC (Auto) Urine Creatinine Urine Total Protein Fluid Total Protein Vancomycin Trough Rheumatoid Factor Complement C4 Miscellaneous Test Flexitest 1 H Crossmatch 10/13/16 10/13/16 10/13/16 18:09 Unknown Unknown WBC 23.4 H RBC 2.83 L Hgb 8.7 L Hct 26.1 L MCV MCH MCHC RDW 18.1 H Plt Count Lymph % (Auto) [place] % (Auto) Lymph # [place] # Baso # Seg Neutrophils % Seg Neuts % (Manual) Lymphocytes % (Manual) Monocytes % (Manual) Eosinophils % (Manual) Basophils % (Manual) Nucleated RBC % Seg Neutrophils # Seg Neutrophils # Man Lymphocytes # (Manual) Monocytes # (Manual) Eosinophils # (Manual) Basophils # (Manual) PT INR Fibrinogen dRVVT Confirm Interp Factor V Activity POC ABG pH POC ABG pCO2 POC ABG pO2 ABG pO2 ABG HCO3 ABG Base Excess ABG Hemoglobin Oxyhemoglobin Sodium Potassium Chloride 95.8 L Carbon Dioxide BUN 82 H Creatinine 2.6 H Glucose 152 H POC Glucose 166 H Lactic Acid Calcium Phosphorus Magnesium Direct Bilirubin AST ALT Alkaline Phosphatase Lactate Dehydrogenase Troponin T C-Reactive Protein Total Protein Albumin Prealbumin Triglycerides Cholesterol LDL Cholesterol Direct HDL Cholesterol PTH Intact Urine pH Urine WBC (Auto) Urine Creatinine Urine Total Protein Fluid Total Protein Vancomycin Trough Rheumatoid Factor Complement C4 Miscellaneous Test Crossmatch 10/14/16 10/14/16 10/14/16 05:38 06:35 08:10 WBC 20.7 H RBC 2.81 L Hgb 8.4 L Hct 27.2 L MCV MCH MCHC RDW 19.4 H Plt Count Lymph % (Auto) [place] % (Auto) Lymph # [place] # Baso # Seg Neutrophils % Seg Neuts % (Manual) Lymphocytes % (Manual) Monocytes % (Manual) Eosinophils % (Manual) Basophils % (Manual) Nucleated RBC % Seg Neutrophils # Seg Neutrophils # Man Lymphocytes # (Manual) Monocytes # (Manual) Eosinophils # (Manual) Basophils # (Manual) PT INR Fibrinogen dRVVT Confirm Interp Factor V Activity POC ABG pH POC ABG pCO2 POC ABG pO2 ABG pO2 ABG HCO3 ABG Base Excess ABG Hemoglobin Oxyhemoglobin Sodium Potassium Chloride Carbon Dioxide BUN 58 H Creatinine 1.9 H Glucose 169 H POC Glucose 195 H Lactic Acid Calcium Phosphorus Magnesium Direct Bilirubin AST ALT Alkaline Phosphatase Lactate Dehydrogenase Troponin T C-Reactive Protein Total Protein Albumin Prealbumin Triglycerides Cholesterol LDL Cholesterol Direct HDL Cholesterol PTH Intact Urine pH Urine WBC (Auto) Urine Creatinine Urine Total Protein Fluid Total Protein Vancomycin Trough Rheumatoid Factor Complement C4 Miscellaneous Test Crossmatch 10/14/16 10/14/16 10/14/16 11:44 17:13 23:28 WBC RBC Hgb Hct MCV MCH MCHC RDW Plt Count Lymph % (Auto) [place] % (Auto) Lymph # [place] # Baso # Seg Neutrophils % Seg Neuts % (Manual) Lymphocytes % (Manual) Monocytes % (Manual) Eosinophils % (Manual) Basophils % (Manual) Nucleated RBC % Seg Neutrophils # Seg Neutrophils # Man Lymphocytes # (Manual) Monocytes # (Manual) Eosinophils # (Manual) Basophils # (Manual) PT INR Fibrinogen dRVVT Confirm Interp Factor V Activity POC ABG pH POC ABG pCO2 POC ABG pO2 ABG pO2 ABG HCO3 ABG Base Excess ABG Hemoglobin Oxyhemoglobin Sodium Potassium Chloride Carbon Dioxide BUN Creatinine Glucose POC Glucose 174 H 121 H 151 H Lactic Acid Calcium Phosphorus Magnesium Direct Bilirubin AST ALT Alkaline Phosphatase Lactate Dehydrogenase Troponin T C-Reactive Protein Total Protein Albumin Prealbumin Triglycerides Cholesterol LDL Cholesterol Direct HDL Cholesterol PTH Intact Urine pH Urine WBC (Auto) Urine Creatinine Urine Total Protein Fluid Total Protein Vancomycin Trough Rheumatoid Factor Complement C4 Miscellaneous Test Crossmatch 10/15/16 10/15/16 10/15/16 05:06 12:26 17:48 WBC RBC Hgb Hct MCV MCH MCHC RDW Plt Count Lymph % (Auto) [place] % (Auto) Lymph # [place] # Baso # Seg Neutrophils % Seg Neuts % (Manual) Lymphocytes % (Manual) Monocytes % (Manual) Eosinophils % (Manual) Basophils % (Manual) Nucleated RBC % Seg Neutrophils # Seg Neutrophils # Man Lymphocytes # (Manual) Monocytes # (Manual) Eosinophils # (Manual) Basophils # (Manual) PT INR Fibrinogen dRVVT Confirm Interp Factor V Activity POC ABG pH POC ABG pCO2 POC ABG pO2 ABG pO2 ABG HCO3 ABG Base Excess ABG Hemoglobin Oxyhemoglobin Sodium Potassium Chloride Carbon Dioxide BUN Creatinine Glucose POC Glucose 151 H 149 H 153 H Lactic Acid Calcium Phosphorus Magnesium Direct Bilirubin AST ALT Alkaline Phosphatase Lactate Dehydrogenase Troponin T C-Reactive Protein Total Protein Albumin Prealbumin Triglycerides Cholesterol LDL Cholesterol Direct HDL Cholesterol PTH Intact Urine pH Urine WBC (Auto) Urine Creatinine Urine Total Protein Fluid Total Protein Vancomycin Trough Rheumatoid Factor Complement C4 Miscellaneous Test Crossmatch 10/15/16 10/15/16 10/16/16 Unknown Unknown 00:02 WBC 23.4 H RBC 2.78 L Hgb 8.5 L Hct 25.7 L MCV MCH MCHC RDW 18.7 H Plt Count Lymph % (Auto) [place] % (Auto) Lymph # [place] # Baso # Seg Neutrophils % Seg Neuts % (Manual) Lymphocytes % (Manual) Monocytes % (Manual) Eosinophils % (Manual) Basophils % (Manual) Nucleated RBC % Seg Neutrophils # Seg Neutrophils # Man Lymphocytes # (Manual) Monocytes # (Manual) Eosinophils # (Manual) Basophils # (Manual) PT INR Fibrinogen dRVVT Confirm Interp Factor V Activity POC ABG pH POC ABG pCO2 POC ABG pO2 ABG pO2 ABG HCO3 ABG Base Excess ABG Hemoglobin Oxyhemoglobin Sodium Potassium Chloride Carbon Dioxide BUN 73 H Creatinine 2.3 H Glucose 120 H POC Glucose 137 H Lactic Acid Calcium Phosphorus Magnesium Direct Bilirubin AST ALT Alkaline Phosphatase Lactate Dehydrogenase Troponin T C-Reactive Protein Total Protein Albumin Prealbumin Triglycerides Cholesterol LDL Cholesterol Direct HDL Cholesterol PTH Intact Urine pH Urine WBC (Auto) Urine Creatinine Urine Total Protein Fluid Total Protein Vancomycin Trough Rheumatoid Factor Complement C4 Miscellaneous Test Crossmatch 10/16/16 10/16/16 10/16/16 05:44 06:25 06:25 WBC 22.5 H RBC 2.76 L Hgb 8.3 L Hct 25.2 L MCV MCH MCHC RDW 18.3 H Plt Count Lymph % (Auto) [place] % (Auto) Lymph # [place] # Baso # Seg Neutrophils % Seg Neuts % (Manual) Lymphocytes % (Manual) Monocytes % (Manual) Eosinophils % (Manual) Basophils % (Manual) Nucleated RBC % Seg Neutrophils # Seg Neutrophils # Man Lymphocytes # (Manual) Monocytes # (Manual) Eosinophils # (Manual) Basophils # (Manual) PT INR Fibrinogen dRVVT Confirm Interp Factor V Activity POC ABG pH POC ABG pCO2 POC ABG pO2 ABG pO2 ABG HCO3 ABG Base Excess ABG Hemoglobin Oxyhemoglobin Sodium Potassium Chloride Carbon Dioxide BUN 92 H Creatinine 3.0 H Glucose 138 H POC Glucose 110 H Lactic Acid Calcium Phosphorus Magnesium Direct Bilirubin AST ALT Alkaline Phosphatase Lactate Dehydrogenase Troponin T C-Reactive Protein Total Protein Albumin Prealbumin Triglycerides Cholesterol LDL Cholesterol Direct HDL Cholesterol PTH Intact Urine pH Urine WBC (Auto) Urine Creatinine Urine Total Protein Fluid Total Protein Vancomycin Trough Rheumatoid Factor Complement C4 Miscellaneous Test Crossmatch 10/16/16 10/16/16 10/16/16 11:27 11:48 17:36 WBC RBC Hgb Hct MCV MCH MCHC RDW Plt Count Lymph % (Auto) [place] % (Auto) Lymph # [place] # Baso # Seg Neutrophils % Seg Neuts % (Manual) Lymphocytes % (Manual) Monocytes % (Manual) Eosinophils % (Manual) Basophils % (Manual) Nucleated RBC % Seg Neutrophils # Seg Neutrophils # Man Lymphocytes # (Manual) Monocytes # (Manual) Eosinophils # (Manual) Basophils # (Manual) PT INR Fibrinogen dRVVT Confirm Interp Factor V Activity POC ABG pH 7.582 H POC ABG pCO2 27.4 L POC ABG pO2 110 H ABG pO2 ABG HCO3 ABG Base Excess ABG Hemoglobin Oxyhemoglobin Sodium Potassium Chloride Carbon Dioxide BUN Creatinine Glucose POC Glucose 121 H 133 H Lactic Acid Calcium Phosphorus Magnesium Direct Bilirubin AST ALT Alkaline Phosphatase Lactate Dehydrogenase Troponin T C-Reactive Protein Total Protein Albumin Prealbumin Triglycerides Cholesterol LDL Cholesterol Direct HDL Cholesterol PTH Intact Urine pH Urine WBC (Auto) Urine Creatinine Urine Total Protein Fluid Total Protein Vancomycin Trough Rheumatoid Factor Complement C4 Miscellaneous Test Crossmatch 10/16/16 10/17/16 10/17/16 20:48 04:24 04:24 WBC 21.4 H RBC 2.72 L Hgb 8.0 L Hct 25.2 L MCV MCH MCHC RDW 18.0 H Plt Count Lymph % (Auto) [place] % (Auto) Lymph # [place] # Baso # Seg Neutrophils % Seg Neuts % (Manual) Lymphocytes % (Manual) Monocytes % (Manual) Eosinophils % (Manual) Basophils % (Manual) Nucleated RBC % Seg Neutrophils # Seg Neutrophils # Man Lymphocytes # (Manual) Monocytes # (Manual) Eosinophils # (Manual) Basophils # (Manual) PT INR Fibrinogen dRVVT Confirm Interp Factor V Activity POC ABG pH 7.561 H POC ABG pCO2 24.4 L POC ABG pO2 77 L ABG pO2 ABG HCO3 ABG Base Excess ABG Hemoglobin Oxyhemoglobin Sodium 148 H Potassium Chloride Carbon Dioxide BUN 104 H Creatinine 3.0 H Glucose 149 H POC Glucose Lactic Acid Calcium Phosphorus Magnesium Direct Bilirubin AST ALT Alkaline Phosphatase 138 H Lactate Dehydrogenase Troponin T C-Reactive Protein Total Protein 6.2 L Albumin 1.5 L Prealbumin Triglycerides Cholesterol LDL Cholesterol Direct HDL Cholesterol PTH Intact Urine pH Urine WBC (Auto) Urine Creatinine Urine Total Protein Fluid Total Protein Vancomycin Trough Rheumatoid Factor Complement C4 Miscellaneous Test Crossmatch 10/17/16 10/17/16 10/17/16 06:02 12:17 17:14 WBC RBC Hgb Hct MCV MCH MCHC RDW Plt Count Lymph % (Auto) [place] % (Auto) Lymph # [place] # Baso # Seg Neutrophils % Seg Neuts % (Manual) Lymphocytes % (Manual) Monocytes % (Manual) Eosinophils % (Manual) Basophils % (Manual) Nucleated RBC % Seg Neutrophils # Seg Neutrophils # Man Lymphocytes # (Manual) Monocytes # (Manual) Eosinophils # (Manual) Basophils # (Manual) PT INR Fibrinogen dRVVT Confirm Interp Factor V Activity POC ABG pH POC ABG pCO2 POC ABG pO2 ABG pO2 ABG HCO3 ABG Base Excess ABG Hemoglobin Oxyhemoglobin Sodium Potassium Chloride Carbon Dioxide BUN Creatinine Glucose POC Glucose 170 H 167 H 126 H Lactic Acid Calcium Phosphorus Magnesium Direct Bilirubin AST ALT Alkaline Phosphatase Lactate Dehydrogenase Troponin T C-Reactive Protein Total Protein Albumin Prealbumin Triglycerides Cholesterol LDL Cholesterol Direct HDL Cholesterol PTH Intact Urine pH Urine WBC (Auto) Urine Creatinine Urine Total Protein Fluid Total Protein Vancomycin Trough Rheumatoid Factor Complement C4 Miscellaneous Test Crossmatch 10/17/16 10/18/16 10/18/16 23:17 04:00 04:00 WBC 20.7 H RBC 2.47 L Hgb 7.4 L Hct 22.9 L MCV MCH MCHC RDW 17.5 H Plt Count Lymph % (Auto) [place] % (Auto) Lymph # [place] # Baso # Seg Neutrophils % Seg Neuts % (Manual) Lymphocytes % (Manual) Monocytes % (Manual) Eosinophils % (Manual) Basophils % (Manual) Nucleated RBC % Seg Neutrophils # Seg Neutrophils # Man Lymphocytes # (Manual) Monocytes # (Manual) Eosinophils # (Manual) Basophils # (Manual) PT INR Fibrinogen dRVVT Confirm Interp Factor V Activity POC ABG pH POC ABG pCO2 POC ABG pO2 ABG pO2 ABG HCO3 ABG Base Excess ABG Hemoglobin Oxyhemoglobin Sodium 149 H Potassium Chloride 107.9 H Carbon Dioxide 20 L BUN 117 H Creatinine 3.2 H Glucose 119 H POC Glucose 121 H Lactic Acid Calcium Phosphorus Magnesium Direct Bilirubin AST ALT Alkaline Phosphatase Lactate Dehydrogenase Troponin T C-Reactive Protein Total Protein Albumin Prealbumin Triglycerides Cholesterol LDL Cholesterol Direct HDL Cholesterol PTH Intact Urine pH Urine WBC (Auto) Urine Creatinine Urine Total Protein Fluid Total Protein Vancomycin Trough Rheumatoid Factor Complement C4 Miscellaneous Test Crossmatch 10/18/16 10/18/16 10/18/16 05:23 10:46 17:30 WBC RBC Hgb Hct MCV MCH MCHC RDW Plt Count Lymph % (Auto) [place] % (Auto) Lymph # [place] # Baso # Seg Neutrophils % Seg Neuts % (Manual) Lymphocytes % (Manual) Monocytes % (Manual) Eosinophils % (Manual) Basophils % (Manual) Nucleated RBC % Seg Neutrophils # Seg Neutrophils # Man Lymphocytes # (Manual) Monocytes # (Manual) Eosinophils # (Manual) Basophils # (Manual) PT INR Fibrinogen dRVVT Confirm Interp Factor V Activity POC ABG pH POC ABG pCO2 POC ABG pO2 ABG pO2 ABG HCO3 ABG Base Excess ABG Hemoglobin Oxyhemoglobin Sodium Potassium Chloride Carbon Dioxide BUN Creatinine Glucose POC Glucose 119 H 155 H 124 H Lactic Acid Calcium Phosphorus Magnesium Direct Bilirubin AST ALT Alkaline Phosphatase Lactate Dehydrogenase Troponin T C-Reactive Protein Total Protein Albumin Prealbumin Triglycerides Cholesterol LDL Cholesterol Direct HDL Cholesterol PTH Intact Urine pH Urine WBC (Auto) Urine Creatinine Urine Total Protein Fluid Total Protein Vancomycin Trough Rheumatoid Factor Complement C4 Miscellaneous Test Crossmatch 10/19/16 10/19/16 10/19/16 04:00 04:00 05:25 WBC 17.4 H RBC 2.54 L Hgb 7.7 L Hct 23.6 L MCV MCH MCHC RDW 17.3 H Plt Count Lymph % (Auto) [place] % (Auto) Lymph # [place] # Baso # Seg Neutrophils % Seg Neuts % (Manual) Lymphocytes % (Manual) Monocytes % (Manual) Eosinophils % (Manual) Basophils % (Manual) Nucleated RBC % Seg Neutrophils # Seg Neutrophils # Man Lymphocytes # (Manual) Monocytes # (Manual) Eosinophils # (Manual) Basophils # (Manual) PT INR Fibrinogen dRVVT Confirm Interp Factor V Activity POC ABG pH POC ABG pCO2 POC ABG pO2 ABG pO2 ABG HCO3 ABG Base Excess ABG Hemoglobin Oxyhemoglobin Sodium Potassium Chloride Carbon Dioxide BUN 72 H Creatinine 2.1 H Glucose 116 H POC Glucose 119 H Lactic Acid Calcium Phosphorus Magnesium Direct Bilirubin AST ALT Alkaline Phosphatase Lactate Dehydrogenase Troponin T C-Reactive Protein Total Protein Albumin Prealbumin Triglycerides Cholesterol LDL Cholesterol Direct HDL Cholesterol PTH Intact Urine pH Urine WBC (Auto) Urine Creatinine Urine Total Protein Fluid Total Protein Vancomycin Trough Rheumatoid Factor Complement C4 Miscellaneous Test Crossmatch 10/19/16 10/19/16 10/20/16 11:46 23:59 06:00 WBC RBC Hgb Hct MCV MCH MCHC RDW Plt Count Lymph % (Auto) [place] % (Auto) Lymph # [place] # Baso # Seg Neutrophils % Seg Neuts % (Manual) Lymphocytes % (Manual) Monocytes % (Manual) Eosinophils % (Manual) Basophils % (Manual) Nucleated RBC % Seg Neutrophils # Seg Neutrophils # Man Lymphocytes # (Manual) Monocytes # (Manual) Eosinophils # (Manual) Basophils # (Manual) PT INR Fibrinogen dRVVT Confirm Interp Factor V Activity POC ABG pH POC ABG pCO2 POC ABG pO2 ABG pO2 ABG HCO3 ABG Base Excess ABG Hemoglobin Oxyhemoglobin Sodium Potassium Chloride Carbon Dioxide 17 L BUN 94 H Creatinine 2.7 H Glucose POC Glucose 116 H 117 H Lactic Acid Calcium Phosphorus Magnesium Direct Bilirubin AST ALT Alkaline Phosphatase Lactate Dehydrogenase Troponin T C-Reactive Protein Total Protein Albumin Prealbumin Triglycerides Cholesterol LDL Cholesterol Direct HDL Cholesterol PTH Intact Urine pH Urine WBC (Auto) Urine Creatinine Urine Total Protein Fluid Total Protein Vancomycin Trough Rheumatoid Factor Complement C4 Miscellaneous Test Crossmatch 10/20/16 10/20/16 10/20/16 06:00 11:49 16:00 WBC 19.7 H RBC 2.51 L Hgb 7.7 L Hct 23.5 L MCV MCH MCHC RDW 17.5 H Plt Count Lymph % (Auto) [place] % (Auto) Lymph # [place] # Baso # Seg Neutrophils % Seg Neuts % (Manual) Lymphocytes % (Manual) Monocytes % (Manual) Eosinophils % (Manual) Basophils % (Manual) Nucleated RBC % Seg Neutrophils # Seg Neutrophils # Man Lymphocytes # (Manual) Monocytes # (Manual) Eosinophils # (Manual) Basophils # (Manual) PT INR Fibrinogen dRVVT Confirm Interp Factor V Activity POC ABG pH POC ABG pCO2 POC ABG pO2 ABG pO2 ABG HCO3 ABG Base Excess ABG Hemoglobin Oxyhemoglobin Sodium Potassium Chloride Carbon Dioxide BUN Creatinine Glucose POC Glucose 117 H Lactic Acid Calcium Phosphorus Magnesium Direct Bilirubin AST ALT Alkaline Phosphatase Lactate Dehydrogenase Troponin T C-Reactive Protein Total Protein Albumin Prealbumin Triglycerides Cholesterol LDL Cholesterol Direct HDL Cholesterol PTH Intact Urine pH Urine WBC (Auto) Urine Creatinine Urine Total Protein Fluid Total Protein Vancomycin Trough Rheumatoid Factor Complement C4 Miscellaneous Test Flexitest 1 H Crossmatch 10/20/16 10/20/16 10/21/16 18:36 23:39 04:00 WBC RBC Hgb Hct MCV MCH MCHC RDW Plt Count Lymph % (Auto) [place] % (Auto) Lymph # [place] # Baso # Seg Neutrophils % Seg Neuts % (Manual) Lymphocytes % (Manual) Monocytes % (Manual) Eosinophils % (Manual) Basophils % (Manual) Nucleated RBC % Seg Neutrophils # Seg Neutrophils # Man Lymphocytes # (Manual) Monocytes # (Manual) Eosinophils # (Manual) Basophils # (Manual) PT INR Fibrinogen dRVVT Confirm Interp Factor V Activity POC ABG pH POC ABG pCO2 POC ABG pO2 ABG pO2 ABG HCO3 ABG Base Excess ABG Hemoglobin Oxyhemoglobin Sodium Potassium 5.4 H D Chloride Carbon Dioxide 15 L BUN 110 H Creatinine 3.0 H Glucose POC Glucose 127 H 114 H Lactic Acid Calcium Phosphorus Magnesium Direct Bilirubin AST ALT Alkaline Phosphatase Lactate Dehydrogenase Troponin T C-Reactive Protein Total Protein Albumin Prealbumin Triglycerides Cholesterol LDL Cholesterol Direct HDL Cholesterol PTH Intact Urine pH Urine WBC (Auto) Urine Creatinine Urine Total Protein Fluid Total Protein Vancomycin Trough Rheumatoid Factor Complement C4 Miscellaneous Test Crossmatch 10/21/16 10/21/16 10/22/16 05:54 23:46 05:18 WBC RBC Hgb Hct MCV MCH MCHC RDW Plt Count Lymph % (Auto) [place] % (Auto) Lymph # [place] # Baso # Seg Neutrophils % Seg Neuts % (Manual) Lymphocytes % (Manual) Monocytes % (Manual) Eosinophils % (Manual) Basophils % (Manual) Nucleated RBC % Seg Neutrophils # Seg Neutrophils # Man Lymphocytes # (Manual) Monocytes # (Manual) Eosinophils # (Manual) Basophils # (Manual) PT INR Fibrinogen dRVVT Confirm Interp Factor V Activity POC ABG pH POC ABG pCO2 POC ABG pO2 ABG pO2 ABG HCO3 ABG Base Excess ABG Hemoglobin Oxyhemoglobin Sodium Potassium Chloride Carbon Dioxide BUN Creatinine Glucose POC Glucose 119 H 108 H 109 H Lactic Acid Calcium Phosphorus Magnesium Direct Bilirubin AST ALT Alkaline Phosphatase Lactate Dehydrogenase Troponin T C-Reactive Protein Total Protein Albumin Prealbumin Triglycerides Cholesterol LDL Cholesterol Direct HDL Cholesterol PTH Intact Urine pH Urine WBC (Auto) Urine Creatinine Urine Total Protein Fluid Total Protein Vancomycin Trough Rheumatoid Factor Complement C4 Miscellaneous Test Crossmatch 10/22/16 10/22/16 10/22/16 06:40 06:40 06:40 WBC 14.0 H RBC 2.03 L Hgb 7.0 L Hct 20.5 L MCV 98 H MCH 34 H MCHC 35 H RDW 17.8 H Plt Count Lymph % (Auto) [place] % (Auto) 9.9 H Lymph # [place] # 1.4 H Baso # 0.2 H Seg Neutrophils % 72.0 H Seg Neuts % (Manual) Lymphocytes % (Manual) Monocytes % (Manual) Eosinophils % (Manual) Basophils % (Manual) Nucleated RBC % Seg Neutrophils # 10.0 H Seg Neutrophils # Man Lymphocytes # (Manual) Monocytes # (Manual) Eosinophils # (Manual) Basophils # (Manual) PT INR Fibrinogen dRVVT Confirm Interp Factor V Activity POC ABG pH POC ABG pCO2 POC ABG pO2 ABG pO2 ABG HCO3 ABG Base Excess ABG Hemoglobin Oxyhemoglobin Sodium 130 L D Potassium Chloride 92.4 L Carbon Dioxide 20 L BUN 50 H Creatinine 1.6 H Glucose 589 H* POC Glucose Lactic Acid Calcium 7.8 L D Phosphorus Magnesium 1.60 L Direct Bilirubin AST ALT Alkaline Phosphatase Lactate Dehydrogenase Troponin T C-Reactive Protein Total Protein Albumin Prealbumin Triglycerides Cholesterol LDL Cholesterol Direct HDL Cholesterol PTH Intact Urine pH Urine WBC (Auto) Urine Creatinine Urine Total Protein Fluid Total Protein Vancomycin Trough Rheumatoid Factor Complement C4 Miscellaneous Test Crossmatch 10/22/16 10/22/16 10/22/16 11:39 16:44 23:36 WBC RBC Hgb Hct MCV MCH MCHC RDW Plt Count Lymph % (Auto) [place] % (Auto) Lymph # [place] # Baso # Seg Neutrophils % Seg Neuts % (Manual) Lymphocytes % (Manual) Monocytes % (Manual) Eosinophils % (Manual) Basophils % (Manual) Nucleated RBC % Seg Neutrophils # Seg Neutrophils # Man Lymphocytes # (Manual) Monocytes # (Manual) Eosinophils # (Manual) Basophils # (Manual) PT INR Fibrinogen dRVVT Confirm Interp Factor V Activity POC ABG pH POC ABG pCO2 POC ABG pO2 ABG pO2 ABG HCO3 ABG Base Excess ABG Hemoglobin Oxyhemoglobin Sodium Potassium Chloride Carbon Dioxide BUN Creatinine Glucose POC Glucose 142 H 163 H 123 H Lactic Acid Calcium Phosphorus Magnesium Direct Bilirubin AST ALT Alkaline Phosphatase Lactate Dehydrogenase Troponin T C-Reactive Protein Total Protein Albumin Prealbumin Triglycerides Cholesterol LDL Cholesterol Direct HDL Cholesterol PTH Intact Urine pH Urine WBC (Auto) Urine Creatinine Urine Total Protein Fluid Total Protein Vancomycin Trough Rheumatoid Factor Complement C4 Miscellaneous Test Crossmatch 10/23/16 10/23/16 10/23/16 04:58 06:00 12:12 WBC RBC Hgb Hct MCV MCH MCHC RDW Plt Count Lymph % (Auto) [place] % (Auto) Lymph # [place] # Baso # Seg Neutrophils % Seg Neuts % (Manual) Lymphocytes % (Manual) Monocytes % (Manual) Eosinophils % (Manual) Basophils % (Manual) Nucleated RBC % Seg Neutrophils # Seg Neutrophils # Man Lymphocytes # (Manual) Monocytes # (Manual) Eosinophils # (Manual) Basophils # (Manual) PT INR Fibrinogen dRVVT Confirm Interp Factor V Activity POC ABG pH POC ABG pCO2 POC ABG pO2 ABG pO2 ABG HCO3 ABG Base Excess ABG Hemoglobin Oxyhemoglobin Sodium 133 L Potassium 3.5 L Chloride 96.1 L Carbon Dioxide 18 L BUN 76 H Creatinine 2.1 H Glucose POC Glucose 133 H 138 H Lactic Acid Calcium 8.3 L Phosphorus Magnesium Direct Bilirubin AST ALT Alkaline Phosphatase Lactate Dehydrogenase Troponin T C-Reactive Protein Total Protein Albumin Prealbumin Triglycerides Cholesterol LDL Cholesterol Direct HDL Cholesterol PTH Intact Urine pH Urine WBC (Auto) Urine Creatinine Urine Total Protein Fluid Total Protein Vancomycin Trough Rheumatoid Factor Complement C4 Miscellaneous Test Crossmatch 10/23/16 10/23/16 10/24/16 16:53 23:37 04:00 WBC RBC Hgb Hct MCV MCH MCHC RDW Plt Count Lymph % (Auto) [place] % (Auto) Lymph # [place] # Baso # Seg Neutrophils % Seg Neuts % (Manual) Lymphocytes % (Manual) Monocytes % (Manual) Eosinophils % (Manual) Basophils % (Manual) Nucleated RBC % Seg Neutrophils # Seg Neutrophils # Man Lymphocytes # (Manual) Monocytes # (Manual) Eosinophils # (Manual) Basophils # (Manual) PT INR Fibrinogen dRVVT Confirm Interp Factor V Activity POC ABG pH POC ABG pCO2 POC ABG pO2 ABG pO2 ABG HCO3 ABG Base Excess ABG Hemoglobin Oxyhemoglobin Sodium 131 L Potassium Chloride 94.5 L Carbon Dioxide 19 L BUN 97 H Creatinine 2.6 H Glucose 110 H POC Glucose 125 H 123 H Lactic Acid Calcium 8.3 L Phosphorus Magnesium Direct Bilirubin AST ALT Alkaline Phosphatase Lactate Dehydrogenase Troponin T C-Reactive Protein Total Protein Albumin Prealbumin Triglycerides Cholesterol LDL Cholesterol Direct HDL Cholesterol PTH Intact Urine pH Urine WBC (Auto) Urine Creatinine Urine Total Protein Fluid Total Protein Vancomycin Trough Rheumatoid Factor Complement C4 Miscellaneous Test Crossmatch 10/24/16 10/24/16 10/24/16 07:49 11:39 17:52 WBC RBC Hgb 6.0 L Hct 19.7 L* MCV MCH MCHC RDW Plt Count Lymph % (Auto) [place] % (Auto) Lymph # [place] # Baso # Seg Neutrophils % Seg Neuts % (Manual) Lymphocytes % (Manual) Monocytes % (Manual) Eosinophils % (Manual) Basophils % (Manual) Nucleated RBC % Seg Neutrophils # Seg Neutrophils # Man Lymphocytes # (Manual) Monocytes # (Manual) Eosinophils # (Manual) Basophils # (Manual) PT INR Fibrinogen dRVVT Confirm Interp Factor V Activity POC ABG pH POC ABG pCO2 POC ABG pO2 ABG pO2 ABG HCO3 ABG Base Excess ABG Hemoglobin Oxyhemoglobin Sodium Potassium Chloride Carbon Dioxide BUN Creatinine Glucose POC Glucose 106 H 158 H Lactic Acid Calcium Phosphorus Magnesium Direct Bilirubin AST ALT Alkaline Phosphatase Lactate Dehydrogenase Troponin T C-Reactive Protein Total Protein Albumin Prealbumin Triglycerides Cholesterol LDL Cholesterol Direct HDL Cholesterol PTH Intact Urine pH Urine WBC (Auto) Urine Creatinine Urine Total Protein Fluid Total Protein Vancomycin Trough Rheumatoid Factor Complement C4 Miscellaneous Test Crossmatch 10/24/16 10/24/16 10/24/16 20:00 22:27 Unknown WBC RBC Hgb 9.4 L D Hct 27.5 L D MCV MCH MCHC RDW Plt Count Lymph % (Auto) [place] % (Auto) Lymph # [place] # Baso # Seg Neutrophils % Seg Neuts % (Manual) Lymphocytes % (Manual) Monocytes % (Manual) Eosinophils % (Manual) Basophils % (Manual) Nucleated RBC % Seg Neutrophils # Seg Neutrophils # Man Lymphocytes # (Manual) Monocytes # (Manual) Eosinophils # (Manual) Basophils # (Manual) PT INR Fibrinogen dRVVT Confirm Interp Factor V Activity POC ABG pH POC ABG pCO2 POC ABG pO2 ABG pO2 ABG HCO3 ABG Base Excess ABG Hemoglobin Oxyhemoglobin Sodium Potassium Chloride Carbon Dioxide BUN Creatinine Glucose POC Glucose 125 H Lactic Acid Calcium Phosphorus Magnesium Direct Bilirubin AST ALT Alkaline Phosphatase Lactate Dehydrogenase Troponin T C-Reactive Protein Total Protein Albumin Prealbumin Triglycerides Cholesterol LDL Cholesterol Direct HDL Cholesterol PTH Intact Urine pH Urine WBC (Auto) Urine Creatinine Urine Total Protein Fluid Total Protein Vancomycin Trough Rheumatoid Factor Complement C4 Miscellaneous Test Crossmatch See Detail 10/25/16 10/25/16 10/25/16 04:00 04:00 04:00 WBC 14.2 H RBC 2.98 L Hgb 9.0 L Hct 26.2 L MCV MCH MCHC RDW 16.6 H Plt Count Lymph % (Auto) [place] % (Auto) 10.7 H Lymph # [place] # 1.5 H Baso # Seg Neutrophils % 73.6 H Seg Neuts % (Manual) Lymphocytes % (Manual) Monocytes % (Manual) Eosinophils % (Manual) Basophils % (Manual) Nucleated RBC % Seg Neutrophils # 10.5 H Seg Neutrophils # Man Lymphocytes # (Manual) Monocytes # (Manual) Eosinophils # (Manual) Basophils # (Manual) PT INR Fibrinogen dRVVT Confirm Interp Factor V Activity POC ABG pH POC ABG pCO2 POC ABG pO2 ABG pO2 ABG HCO3 ABG Base Excess ABG Hemoglobin Oxyhemoglobin Sodium 132 L Potassium Chloride 94.7 L Carbon Dioxide BUN 51 H Creatinine 1.6 H Glucose 130 H POC Glucose Lactic Acid Calcium 8.3 L Phosphorus 1.60 L D Magnesium Direct Bilirubin AST ALT Alkaline Phosphatase Lactate Dehydrogenase Troponin T C-Reactive Protein Total Protein Albumin Prealbumin Triglycerides Cholesterol LDL Cholesterol Direct HDL Cholesterol PTH Intact Urine pH Urine WBC (Auto) Urine Creatinine Urine Total Protein Fluid Total Protein Vancomycin Trough Rheumatoid Factor Complement C4 Miscellaneous Test Crossmatch 10/25/16 10/25/16 10/25/16 04:32 11:48 17:22 WBC RBC Hgb Hct MCV MCH MCHC RDW Plt Count Lymph % (Auto) [place] % (Auto) Lymph # [place] # Baso # Seg Neutrophils % Seg Neuts % (Manual) Lymphocytes % (Manual) Monocytes % (Manual) Eosinophils % (Manual) Basophils % (Manual) Nucleated RBC % Seg Neutrophils # Seg Neutrophils # Man Lymphocytes # (Manual) Monocytes # (Manual) Eosinophils # (Manual) Basophils # (Manual) PT INR Fibrinogen dRVVT Confirm Interp Factor V Activity POC ABG pH POC ABG pCO2 POC ABG pO2 ABG pO2 ABG HCO3 ABG Base Excess ABG Hemoglobin Oxyhemoglobin Sodium Potassium Chloride Carbon Dioxide BUN Creatinine Glucose POC Glucose 124 H 171 H 120 H Lactic Acid Calcium Phosphorus Magnesium Direct Bilirubin AST ALT Alkaline Phosphatase Lactate Dehydrogenase Troponin T C-Reactive Protein Total Protein Albumin Prealbumin Triglycerides Cholesterol LDL Cholesterol Direct HDL Cholesterol PTH Intact Urine pH Urine WBC (Auto) Urine Creatinine Urine Total Protein Fluid Total Protein Vancomycin Trough Rheumatoid Factor Complement C4 Miscellaneous Test Crossmatch 10/26/16 10/26/16 10/26/16 04:54 07:06 07:06 WBC 16.9 H RBC 3.06 L Hgb 9.1 L Hct 26.9 L MCV MCH MCHC RDW 16.9 H Plt Count Lymph % (Auto) [place] % (Auto) Lymph # [place] # Baso # Seg Neutrophils % Seg Neuts % (Manual) 71.0 H Lymphocytes % (Manual) 5.0 L Monocytes % (Manual) 12.0 H Eosinophils % (Manual) Basophils % (Manual) Nucleated RBC % Seg Neutrophils # Seg Neutrophils # Man 12.0 H Lymphocytes # (Manual) 0.8 L Monocytes # (Manual) 2.0 H Eosinophils # (Manual) Basophils # (Manual) PT INR Fibrinogen dRVVT Confirm Interp Factor V Activity POC ABG pH POC ABG pCO2 POC ABG pO2 ABG pO2 ABG HCO3 ABG Base Excess ABG Hemoglobin Oxyhemoglobin Sodium 135 L Potassium Chloride 97.1 L Carbon Dioxide BUN 73 H Creatinine 2.2 H Glucose 117 H POC Glucose 123 H Lactic Acid Calcium Phosphorus 1.70 L Magnesium Direct Bilirubin AST ALT Alkaline Phosphatase Lactate Dehydrogenase Troponin T C-Reactive Protein Total Protein Albumin Prealbumin Triglycerides Cholesterol LDL Cholesterol Direct HDL Cholesterol PTH Intact Urine pH Urine WBC (Auto) Urine Creatinine Urine Total Protein Fluid Total Protein Vancomycin Trough Rheumatoid Factor Complement C4 Miscellaneous Test Crossmatch 10/26/16 10/26/16 10/26/16 12:12 17:29 23:42 WBC RBC Hgb Hct MCV MCH MCHC RDW Plt Count Lymph % (Auto) [place] % (Auto) Lymph # [place] # Baso # Seg Neutrophils % Seg Neuts % (Manual) Lymphocytes % (Manual) Monocytes % (Manual) Eosinophils % (Manual) Basophils % (Manual) Nucleated RBC % Seg Neutrophils # Seg Neutrophils # Man Lymphocytes # (Manual) Monocytes # (Manual) Eosinophils # (Manual) Basophils # (Manual) PT INR Fibrinogen dRVVT Confirm Interp Factor V Activity POC ABG pH POC ABG pCO2 POC ABG pO2 ABG pO2 ABG HCO3 ABG Base Excess ABG Hemoglobin Oxyhemoglobin Sodium Potassium Chloride Carbon Dioxide BUN Creatinine Glucose POC Glucose 126 H 161 H 118 H Lactic Acid Calcium Phosphorus Magnesium Direct Bilirubin AST ALT Alkaline Phosphatase Lactate Dehydrogenase Troponin T C-Reactive Protein Total Protein Albumin Prealbumin Triglycerides Cholesterol LDL Cholesterol Direct HDL Cholesterol PTH Intact Urine pH Urine WBC (Auto) Urine Creatinine Urine Total Protein Fluid Total Protein Vancomycin Trough Rheumatoid Factor Complement C4 Miscellaneous Test Crossmatch 10/27/16 10/27/16 10/27/16 05:03 06:30 06:30 WBC 13.9 H RBC 3.09 L Hgb 9.2 L Hct 27.5 L MCV MCH MCHC RDW 17.0 H Plt Count Lymph % (Auto) [place] % (Auto) Lymph # [place] # Baso # Seg Neutrophils % Seg Neuts % (Manual) 78.0 H Lymphocytes % (Manual) Monocytes % (Manual) Eosinophils % (Manual) Basophils % (Manual) Nucleated RBC % 2.0 H Seg Neutrophils # Seg Neutrophils # Man 10.8 H Lymphocytes # (Manual) Monocytes # (Manual) 1.0 H Eosinophils # (Manual) Basophils # (Manual) PT INR Fibrinogen dRVVT Confirm Interp Factor V Activity POC ABG pH POC ABG pCO2 POC ABG pO2 ABG pO2 ABG HCO3 ABG Base Excess ABG Hemoglobin Oxyhemoglobin Sodium Potassium Chloride Carbon Dioxide BUN 40 H Creatinine 1.5 H Glucose 135 H POC Glucose 107 H Lactic Acid Calcium 8.3 L Phosphorus 1.30 L D Magnesium Direct Bilirubin AST ALT Alkaline Phosphatase Lactate Dehydrogenase Troponin T C-Reactive Protein Total Protein Albumin Prealbumin Triglycerides Cholesterol LDL Cholesterol Direct HDL Cholesterol PTH Intact Urine pH Urine WBC (Auto) Urine Creatinine Urine Total Protein Fluid Total Protein Vancomycin Trough Rheumatoid Factor Complement C4 Miscellaneous Test Crossmatch 10/27/16 10/27/16 10/27/16 13:27 18:07 23:40 WBC RBC Hgb Hct MCV MCH MCHC RDW Plt Count Lymph % (Auto) [place] % (Auto) Lymph # [place] # Baso # Seg Neutrophils % Seg Neuts % (Manual) Lymphocytes % (Manual) Monocytes % (Manual) Eosinophils % (Manual) Basophils % (Manual) Nucleated RBC % Seg Neutrophils # Seg Neutrophils # Man Lymphocytes # (Manual) Monocytes # (Manual) Eosinophils # (Manual) Basophils # (Manual) PT INR Fibrinogen dRVVT Confirm Interp Factor V Activity POC ABG pH POC ABG pCO2 POC ABG pO2 ABG pO2 ABG HCO3 ABG Base Excess ABG Hemoglobin Oxyhemoglobin Sodium Potassium Chloride Carbon Dioxide BUN Creatinine Glucose POC Glucose 117 H 121 H 118 H Lactic Acid Calcium Phosphorus Magnesium Direct Bilirubin AST ALT Alkaline Phosphatase Lactate Dehydrogenase Troponin T C-Reactive Protein Total Protein Albumin Prealbumin Triglycerides Cholesterol LDL Cholesterol Direct HDL Cholesterol PTH Intact Urine pH Urine WBC (Auto) Urine Creatinine Urine Total Protein Fluid Total Protein Vancomycin Trough Rheumatoid Factor Complement C4 Miscellaneous Test Crossmatch 10/28/16 10/28/16 10/28/16 05:48 06:45 06:45 WBC 14.7 H RBC 3.05 L Hgb 9.0 L Hct 26.9 L MCV MCH MCHC RDW 16.8 H Plt Count Lymph % (Auto) 8.2 L [place] % (Auto) 8.4 H Lymph # [place] # 1.2 H Baso # Seg Neutrophils % 81.9 H Seg Neuts % (Manual) Lymphocytes % (Manual) Monocytes % (Manual) Eosinophils % (Manual) Basophils % (Manual) Nucleated RBC % Seg Neutrophils # 12.1 H Seg Neutrophils # Man Lymphocytes # (Manual) Monocytes # (Manual) Eosinophils # (Manual) Basophils # (Manual) PT INR Fibrinogen dRVVT Confirm Interp Factor V Activity POC ABG pH POC ABG pCO2 POC ABG pO2 ABG pO2 ABG HCO3 ABG Base Excess ABG Hemoglobin Oxyhemoglobin Sodium Potassium Chloride Carbon Dioxide BUN 60 H Creatinine 1.9 H Glucose 120 H POC Glucose 114 H Lactic Acid Calcium Phosphorus Magnesium Direct Bilirubin AST ALT Alkaline Phosphatase Lactate Dehydrogenase Troponin T C-Reactive Protein Total Protein Albumin Prealbumin Triglycerides Cholesterol LDL Cholesterol Direct HDL Cholesterol PTH Intact Urine pH Urine WBC (Auto) Urine Creatinine Urine Total Protein Fluid Total Protein Vancomycin Trough Rheumatoid Factor Complement C4 Miscellaneous Test Crossmatch 10/28/16 10/28/16 10/29/16 17:08 23:50 05:10 WBC RBC Hgb Hct MCV MCH MCHC RDW Plt Count Lymph % (Auto) [place] % (Auto) Lymph # [place] # Baso # Seg Neutrophils % Seg Neuts % (Manual) Lymphocytes % (Manual) Monocytes % (Manual) Eosinophils % (Manual) Basophils % (Manual) Nucleated RBC % Seg Neutrophils # Seg Neutrophils # Man Lymphocytes # (Manual) Monocytes # (Manual) Eosinophils # (Manual) Basophils # (Manual) PT INR Fibrinogen dRVVT Confirm Interp Factor V Activity POC ABG pH POC ABG pCO2 POC ABG pO2 ABG pO2 ABG HCO3 ABG Base Excess ABG Hemoglobin Oxyhemoglobin Sodium Potassium Chloride Carbon Dioxide BUN Creatinine Glucose POC Glucose 109 H 110 H 124 H Lactic Acid Calcium Phosphorus Magnesium Direct Bilirubin AST ALT Alkaline Phosphatase Lactate Dehydrogenase Troponin T C-Reactive Protein Total Protein Albumin Prealbumin Triglycerides Cholesterol LDL Cholesterol Direct HDL Cholesterol PTH Intact Urine pH Urine WBC (Auto) Urine Creatinine Urine Total Protein Fluid Total Protein Vancomycin Trough Rheumatoid Factor Complement C4 Miscellaneous Test Crossmatch 10/29/16 10/29/16 10/29/16 07:45 07:45 12:19 WBC 14.7 H RBC 3.15 L Hgb 9.3 L Hct 28.9 L MCV MCH MCHC RDW 17.0 H Plt Count Lymph % (Auto) 11.9 L [place] % (Auto) 8.6 H Lymph # [place] # 1.3 H Baso # Seg Neutrophils % 78.1 H Seg Neuts % (Manual) Lymphocytes % (Manual) Monocytes % (Manual) Eosinophils % (Manual) Basophils % (Manual) Nucleated RBC % Seg Neutrophils # 11.4 H Seg Neutrophils # Man Lymphocytes # (Manual) Monocytes # (Manual) Eosinophils # (Manual) Basophils # (Manual) PT INR Fibrinogen dRVVT Confirm Interp Factor V Activity POC ABG pH POC ABG pCO2 POC ABG pO2 ABG pO2 ABG HCO3 ABG Base Excess ABG Hemoglobin Oxyhemoglobin Sodium Potassium 5.1 H Chloride Carbon Dioxide 19 L BUN 78 H Creatinine 2.2 H Glucose 116 H POC Glucose 118 H Lactic Acid Calcium Phosphorus Magnesium Direct Bilirubin AST ALT Alkaline Phosphatase Lactate Dehydrogenase Troponin T C-Reactive Protein Total Protein Albumin Prealbumin Triglycerides Cholesterol LDL Cholesterol Direct HDL Cholesterol PTH Intact Urine pH Urine WBC (Auto) Urine Creatinine Urine Total Protein Fluid Total Protein Vancomycin Trough Rheumatoid Factor Complement C4 Miscellaneous Test Crossmatch 10/29/16 10/30/16 10/30/16 17:49 01:52 03:28 WBC RBC Hgb Hct MCV MCH MCHC RDW Plt Count Lymph % (Auto) [place] % (Auto) Lymph # [place] # Baso # Seg Neutrophils % Seg Neuts % (Manual) Lymphocytes % (Manual) Monocytes % (Manual) Eosinophils % (Manual) Basophils % (Manual) Nucleated RBC % Seg Neutrophils # Seg Neutrophils # Man Lymphocytes # (Manual) Monocytes # (Manual) Eosinophils # (Manual) Basophils # (Manual) PT INR Fibrinogen dRVVT Confirm Interp Factor V Activity POC ABG pH POC ABG pCO2 POC ABG pO2 ABG pO2 ABG HCO3 ABG Base Excess ABG Hemoglobin Oxyhemoglobin Sodium Potassium 5.4 H Chloride 97.5 L Carbon Dioxide 19 L BUN 90 H Creatinine 2.5 H Glucose POC Glucose 120 H 129 H Lactic Acid Calcium Phosphorus 5.20 H Magnesium Direct Bilirubin AST ALT Alkaline Phosphatase Lactate Dehydrogenase Troponin T C-Reactive Protein Total Protein Albumin Prealbumin Triglycerides Cholesterol LDL Cholesterol Direct HDL Cholesterol PTH Intact Urine pH Urine WBC (Auto) Urine Creatinine Urine Total Protein Fluid Total Protein Vancomycin Trough Rheumatoid Factor Complement C4 Miscellaneous Test Crossmatch 10/30/16 10/30/16 10/30/16 03:28 08:19 08:19 WBC 11.6 H 15.9 H RBC 2.75 L 2.82 L Hgb 7.9 L 8.3 L Hct 24.2 L 25.2 L MCV MCH MCHC RDW 16.7 H 17.2 H Plt Count Lymph % (Auto) [place] % (Auto) 9.8 H Lymph # [place] # 1.1 H Baso # Seg Neutrophils % 74.2 H Seg Neuts % (Manual) Lymphocytes % (Manual) Monocytes % (Manual) Eosinophils % (Manual) Basophils % (Manual) Nucleated RBC % Seg Neutrophils # 8.6 H Seg Neutrophils # Man Lymphocytes # (Manual) Monocytes # (Manual) Eosinophils # (Manual) Basophils # (Manual) PT INR Fibrinogen dRVVT Confirm Interp Factor V Activity POC ABG pH POC ABG pCO2 POC ABG pO2 ABG pO2 ABG HCO3 ABG Base Excess ABG Hemoglobin Oxyhemoglobin Sodium Potassium 5.3 H Chloride 97.4 L Carbon Dioxide 19 L BUN 93 H Creatinine 2.6 H Glucose POC Glucose Lactic Acid Calcium Phosphorus Magnesium Direct Bilirubin AST ALT Alkaline Phosphatase Lactate Dehydrogenase Troponin T C-Reactive Protein Total Protein Albumin Prealbumin Triglycerides Cholesterol LDL Cholesterol Direct HDL Cholesterol PTH Intact Urine pH Urine WBC (Auto) Urine Creatinine Urine Total Protein Fluid Total Protein Vancomycin Trough Rheumatoid Factor Complement C4 Miscellaneous Test Crossmatch 10/30/16 10/30/16 10/31/16 17:11 23:56 00:40 WBC RBC Hgb Hct MCV MCH MCHC RDW Plt Count Lymph % (Auto) [place] % (Auto) Lymph # [place] # Baso # Seg Neutrophils % Seg Neuts % (Manual) Lymphocytes % (Manual) Monocytes % (Manual) Eosinophils % (Manual) Basophils % (Manual) Nucleated RBC % Seg Neutrophils # Seg Neutrophils # Man Lymphocytes # (Manual) Monocytes # (Manual) Eosinophils # (Manual) Basophils # (Manual) PT INR Fibrinogen dRVVT Confirm Interp Factor V Activity POC ABG pH POC ABG pCO2 POC ABG pO2 ABG pO2 ABG HCO3 ABG Base Excess ABG Hemoglobin Oxyhemoglobin Sodium Potassium Chloride Carbon Dioxide BUN Creatinine Glucose POC Glucose 106 H 117 H 120 H Lactic Acid Calcium Phosphorus Magnesium Direct Bilirubin AST ALT Alkaline Phosphatase Lactate Dehydrogenase Troponin T C-Reactive Protein Total Protein Albumin Prealbumin Triglycerides Cholesterol LDL Cholesterol Direct HDL Cholesterol PTH Intact Urine pH Urine WBC (Auto) Urine Creatinine Urine Total Protein Fluid Total Protein Vancomycin Trough Rheumatoid Factor Complement C4 Miscellaneous Test Crossmatch 10/31/16 10/31/16 10/31/16 05:43 07:15 07:15 WBC 12.1 H RBC 2.63 L Hgb 7.7 L Hct 23.3 L MCV MCH MCHC RDW 16.7 H Plt Count Lymph % (Auto) 11.7 L [place] % (Auto) 7.7 H Lymph # [place] # 0.9 H Baso # Seg Neutrophils % 78.0 H Seg Neuts % (Manual) Lymphocytes % (Manual) Monocytes % (Manual) Eosinophils % (Manual) Basophils % (Manual) Nucleated RBC % Seg Neutrophils # 9.4 H Seg Neutrophils # Man Lymphocytes # (Manual) Monocytes # (Manual) Eosinophils # (Manual) Basophils # (Manual) PT INR Fibrinogen dRVVT Confirm Interp Factor V Activity POC ABG pH POC ABG pCO2 POC ABG pO2 ABG pO2 ABG HCO3 ABG Base Excess ABG Hemoglobin Oxyhemoglobin Sodium Potassium Chloride 96.4 L Carbon Dioxide 21 L BUN 99 H Creatinine 2.6 H Glucose 144 H POC Glucose 125 H Lactic Acid Calcium Phosphorus 4.80 H Magnesium Direct Bilirubin AST ALT Alkaline Phosphatase Lactate Dehydrogenase Troponin T C-Reactive Protein Total Protein Albumin Prealbumin Triglycerides Cholesterol LDL Cholesterol Direct HDL Cholesterol PTH Intact Urine pH Urine WBC (Auto) Urine Creatinine Urine Total Protein Fluid Total Protein Vancomycin Trough Rheumatoid Factor Complement C4 Miscellaneous Test Crossmatch 10/31/16 10/31/16 11/01/16 11:46 18:34 00:20 WBC RBC Hgb Hct MCV MCH MCHC RDW Plt Count Lymph % (Auto) [place] % (Auto) Lymph # [place] # Baso # Seg Neutrophils % Seg Neuts % (Manual) Lymphocytes % (Manual) Monocytes % (Manual) Eosinophils % (Manual) Basophils % (Manual) Nucleated RBC % Seg Neutrophils # Seg Neutrophils # Man Lymphocytes # (Manual) Monocytes # (Manual) Eosinophils # (Manual) Basophils # (Manual) PT INR Fibrinogen dRVVT Confirm Interp Factor V Activity POC ABG pH POC ABG pCO2 POC ABG pO2 ABG pO2 ABG HCO3 ABG Base Excess ABG Hemoglobin Oxyhemoglobin Sodium Potassium Chloride Carbon Dioxide BUN Creatinine Glucose POC Glucose 159 H 140 H 132 H Lactic Acid Calcium Phosphorus Magnesium Direct Bilirubin AST ALT Alkaline Phosphatase Lactate Dehydrogenase Troponin T C-Reactive Protein Total Protein Albumin Prealbumin Triglycerides Cholesterol LDL Cholesterol Direct HDL Cholesterol PTH Intact Urine pH Urine WBC (Auto) Urine Creatinine Urine Total Protein Fluid Total Protein Vancomycin Trough Rheumatoid Factor Complement C4 Miscellaneous Test Crossmatch 11/01/16 11/01/16 11/01/16 04:55 04:55 06:11 WBC 11.2 H RBC 2.68 L Hgb 7.5 L Hct 23.7 L MCV MCH MCHC RDW 16.1 H Plt Count Lymph % (Auto) [place] % (Auto) 9.8 H Lymph # [place] # 1.1 H Baso # Seg Neutrophils % 70.8 H Seg Neuts % (Manual) Lymphocytes % (Manual) Monocytes % (Manual) Eosinophils % (Manual) Basophils % (Manual) Nucleated RBC % Seg Neutrophils # 7.9 H Seg Neutrophils # Man Lymphocytes # (Manual) Monocytes # (Manual) Eosinophils # (Manual) Basophils # (Manual) PT INR Fibrinogen dRVVT Confirm Interp Factor V Activity POC ABG pH POC ABG pCO2 POC ABG pO2 ABG pO2 ABG HCO3 ABG Base Excess ABG Hemoglobin Oxyhemoglobin Sodium Potassium 3.3 L D Chloride Carbon Dioxide BUN 61 H Creatinine 1.9 H Glucose 114 H POC Glucose 115 H Lactic Acid Calcium Phosphorus 1.80 L D Magnesium Direct Bilirubin AST ALT Alkaline Phosphatase Lactate Dehydrogenase Troponin T C-Reactive Protein Total Protein Albumin Prealbumin Triglycerides Cholesterol LDL Cholesterol Direct HDL Cholesterol PTH Intact Urine pH Urine WBC (Auto) Urine Creatinine Urine Total Protein Fluid Total Protein Vancomycin Trough Rheumatoid Factor Complement C4 Miscellaneous Test Crossmatch 11/01/16 11/01/16 11/01/16 12:29 18:23 23:58 WBC RBC Hgb Hct MCV MCH MCHC RDW Plt Count Lymph % (Auto) [place] % (Auto) Lymph # [place] # Baso # Seg Neutrophils % Seg Neuts % (Manual) Lymphocytes % (Manual) Monocytes % (Manual) Eosinophils % (Manual) Basophils % (Manual) Nucleated RBC % Seg Neutrophils # Seg Neutrophils # Man Lymphocytes # (Manual) Monocytes # (Manual) Eosinophils # (Manual) Basophils # (Manual) PT INR Fibrinogen dRVVT Confirm Interp Factor V Activity POC ABG pH POC ABG pCO2 POC ABG pO2 ABG pO2 ABG HCO3 ABG Base Excess ABG Hemoglobin Oxyhemoglobin Sodium Potassium Chloride Carbon Dioxide BUN Creatinine Glucose POC Glucose 142 H 143 H 128 H Lactic Acid Calcium Phosphorus Magnesium Direct Bilirubin AST ALT Alkaline Phosphatase Lactate Dehydrogenase Troponin T C-Reactive Protein Total Protein Albumin Prealbumin Triglycerides Cholesterol LDL Cholesterol Direct HDL Cholesterol PTH Intact Urine pH Urine WBC (Auto) Urine Creatinine Urine Total Protein Fluid Total Protein Vancomycin Trough Rheumatoid Factor Complement C4 Miscellaneous Test Crossmatch 11/02/16 11/02/16 11/02/16 04:16 05:29 11:58 WBC RBC Hgb Hct MCV MCH MCHC RDW Plt Count Lymph % (Auto) [place] % (Auto) Lymph # [place] # Baso # Seg Neutrophils % Seg Neuts % (Manual) Lymphocytes % (Manual) Monocytes % (Manual) Eosinophils % (Manual) Basophils % (Manual) Nucleated RBC % Seg Neutrophils # Seg Neutrophils # Man Lymphocytes # (Manual) Monocytes # (Manual) Eosinophils # (Manual) Basophils # (Manual) PT INR Fibrinogen dRVVT Confirm Interp Factor V Activity POC ABG pH POC ABG pCO2 POC ABG pO2 ABG pO2 ABG HCO3 ABG Base Excess ABG Hemoglobin Oxyhemoglobin Sodium Potassium 3.1 L Chloride Carbon Dioxide BUN 73 H Creatinine 2.3 H Glucose 112 H POC Glucose 135 H 149 H Lactic Acid Calcium Phosphorus Magnesium Direct Bilirubin AST ALT Alkaline Phosphatase Lactate Dehydrogenase Troponin T C-Reactive Protein Total Protein Albumin Prealbumin Triglycerides Cholesterol LDL Cholesterol Direct HDL Cholesterol PTH Intact Urine pH Urine WBC (Auto) Urine Creatinine Urine Total Protein Fluid Total Protein Vancomycin Trough Rheumatoid Factor Complement C4 Miscellaneous Test Crossmatch 11/02/16 11/02/16 11/03/16 17:42 22:54 06:00 WBC RBC Hgb Hct MCV MCH MCHC RDW Plt Count Lymph % (Auto) [place] % (Auto) Lymph # [place] # Baso # Seg Neutrophils % Seg Neuts % (Manual) Lymphocytes % (Manual) Monocytes % (Manual) Eosinophils % (Manual) Basophils % (Manual) Nucleated RBC % Seg Neutrophils # Seg Neutrophils # Man Lymphocytes # (Manual) Monocytes # (Manual) Eosinophils # (Manual) Basophils # (Manual) PT INR Fibrinogen dRVVT Confirm Interp Factor V Activity POC ABG pH POC ABG pCO2 POC ABG pO2 ABG pO2 ABG HCO3 ABG Base Excess ABG Hemoglobin Oxyhemoglobin Sodium Potassium Chloride 96.7 L Carbon Dioxide BUN 41 H Creatinine 1.5 H Glucose 145 H POC Glucose 182 H 115 H Lactic Acid Calcium Phosphorus 1.60 L D Magnesium 1.50 L Direct Bilirubin AST ALT Alkaline Phosphatase Lactate Dehydrogenase Troponin T C-Reactive Protein Total Protein Albumin Prealbumin Triglycerides Cholesterol LDL Cholesterol Direct HDL Cholesterol PTH Intact Urine pH Urine WBC (Auto) Urine Creatinine Urine Total Protein Fluid Total Protein Vancomycin Trough Rheumatoid Factor Complement C4 Miscellaneous Test Crossmatch 11/03/16 11/03/16 11/03/16 11:53 17:45 23:37 WBC RBC Hgb Hct MCV MCH MCHC RDW Plt Count Lymph % (Auto) [place] % (Auto) Lymph # [place] # Baso # Seg Neutrophils % Seg Neuts % (Manual) Lymphocytes % (Manual) Monocytes % (Manual) Eosinophils % (Manual) Basophils % (Manual) Nucleated RBC % Seg Neutrophils # Seg Neutrophils # Man Lymphocytes # (Manual) Monocytes # (Manual) Eosinophils # (Manual) Basophils # (Manual) PT INR Fibrinogen dRVVT Confirm Interp Factor V Activity POC ABG pH POC ABG pCO2 POC ABG pO2 ABG pO2 ABG HCO3 ABG Base Excess ABG Hemoglobin Oxyhemoglobin Sodium Potassium Chloride Carbon Dioxide BUN Creatinine Glucose POC Glucose 131 H 134 H 113 H Lactic Acid Calcium Phosphorus Magnesium Direct Bilirubin AST ALT Alkaline Phosphatase Lactate Dehydrogenase Troponin T C-Reactive Protein Total Protein Albumin Prealbumin Triglycerides Cholesterol LDL Cholesterol Direct HDL Cholesterol PTH Intact Urine pH Urine WBC (Auto) Urine Creatinine Urine Total Protein Fluid Total Protein Vancomycin Trough Rheumatoid Factor Complement C4 Miscellaneous Test Crossmatch 11/04/16 11/04/16 11/04/16 05:41 06:00 12:10 WBC RBC Hgb Hct MCV MCH MCHC RDW Plt Count Lymph % (Auto) [place] % (Auto) Lymph # [place] # Baso # Seg Neutrophils % Seg Neuts % (Manual) Lymphocytes % (Manual) Monocytes % (Manual) Eosinophils % (Manual) Basophils % (Manual) Nucleated RBC % Seg Neutrophils # Seg Neutrophils # Man Lymphocytes # (Manual) Monocytes # (Manual) Eosinophils # (Manual) Basophils # (Manual) PT INR Fibrinogen dRVVT Confirm Interp Factor V Activity POC ABG pH POC ABG pCO2 POC ABG pO2 ABG pO2 ABG HCO3 ABG Base Excess ABG Hemoglobin Oxyhemoglobin Sodium Potassium Chloride 96.7 L Carbon Dioxide BUN 52 H Creatinine 1.9 H Glucose 126 H POC Glucose 137 H 191 H Lactic Acid Calcium Phosphorus Magnesium Direct Bilirubin AST ALT Alkaline Phosphatase Lactate Dehydrogenase Troponin T C-Reactive Protein Total Protein Albumin Prealbumin Triglycerides Cholesterol LDL Cholesterol Direct HDL Cholesterol PTH Intact Urine pH Urine WBC (Auto) Urine Creatinine Urine Total Protein Fluid Total Protein Vancomycin Trough Rheumatoid Factor Complement C4 Miscellaneous Test Crossmatch 11/04/16 11/05/16 11/05/16 22:57 03:10 05:10 WBC RBC Hgb Hct MCV MCH MCHC RDW Plt Count Lymph % (Auto) [place] % (Auto) Lymph # [place] # Baso # Seg Neutrophils % Seg Neuts % (Manual) Lymphocytes % (Manual) Monocytes % (Manual) Eosinophils % (Manual) Basophils % (Manual) Nucleated RBC % Seg Neutrophils # Seg Neutrophils # Man Lymphocytes # (Manual) Monocytes # (Manual) Eosinophils # (Manual) Basophils # (Manual) PT INR Fibrinogen dRVVT Confirm Interp Factor V Activity POC ABG pH POC ABG pCO2 POC ABG pO2 ABG pO2 ABG HCO3 ABG Base Excess ABG Hemoglobin Oxyhemoglobin Sodium 136 L Potassium Chloride 97.2 L Carbon Dioxide BUN 32 H Creatinine 1.3 H Glucose 123 H POC Glucose 125 H 108 H Lactic Acid Calcium 7.8 L Phosphorus Magnesium Direct Bilirubin AST ALT Alkaline Phosphatase Lactate Dehydrogenase Troponin T C-Reactive Protein Total Protein Albumin Prealbumin Triglycerides Cholesterol LDL Cholesterol Direct HDL Cholesterol PTH Intact Urine pH Urine WBC (Auto) Urine Creatinine Urine Total Protein Fluid Total Protein Vancomycin Trough Rheumatoid Factor Complement C4 Miscellaneous Test Crossmatch 11/05/16 11/05/16 11/05/16 12:23 13:09 13:25 WBC RBC Hgb Hct MCV MCH MCHC RDW Plt Count Lymph % (Auto) [place] % (Auto) Lymph # [place] # Baso # Seg Neutrophils % Seg Neuts % (Manual) Lymphocytes % (Manual) Monocytes % (Manual) Eosinophils % (Manual) Basophils % (Manual) Nucleated RBC % Seg Neutrophils # Seg Neutrophils # Man Lymphocytes # (Manual) Monocytes # (Manual) Eosinophils # (Manual) Basophils # (Manual) PT INR Fibrinogen dRVVT Confirm Interp Factor V Activity POC ABG pH POC ABG pCO2 POC ABG pO2 ABG pO2 ABG HCO3 ABG Base Excess ABG Hemoglobin Oxyhemoglobin Sodium Potassium Chloride Carbon Dioxide BUN Creatinine Glucose POC Glucose 124 H Lactic Acid Calcium Phosphorus Magnesium Direct Bilirubin AST ALT Alkaline Phosphatase Lactate Dehydrogenase Troponin T C-Reactive Protein 11.40 H Total Protein Albumin Prealbumin Triglycerides Cholesterol LDL Cholesterol Direct HDL Cholesterol PTH Intact Urine pH 9.0 H Urine WBC (Auto) Urine Creatinine Urine Total Protein Fluid Total Protein Vancomycin Trough Rheumatoid Factor Complement C4 Miscellaneous Test Crossmatch 11/05/16 11/05/16 11/05/16 13:25 17:54 23:42 WBC RBC Hgb Hct MCV MCH MCHC RDW Plt Count Lymph % (Auto) [place] % (Auto) Lymph # [place] # Baso # Seg Neutrophils % Seg Neuts % (Manual) Lymphocytes % (Manual) Monocytes % (Manual) Eosinophils % (Manual) Basophils % (Manual) Nucleated RBC % Seg Neutrophils # Seg Neutrophils # Man Lymphocytes # (Manual) Monocytes # (Manual) Eosinophils # (Manual) Basophils # (Manual) PT INR Fibrinogen dRVVT Confirm Interp Factor V Activity POC ABG pH POC ABG pCO2 POC ABG pO2 ABG pO2 ABG HCO3 ABG Base Excess ABG Hemoglobin Oxyhemoglobin Sodium Potassium Chloride Carbon Dioxide BUN Creatinine Glucose POC Glucose 114 H 134 H Lactic Acid Calcium Phosphorus Magnesium Direct Bilirubin AST ALT Alkaline Phosphatase Lactate Dehydrogenase Troponin T C-Reactive Protein Total Protein Albumin Prealbumin Triglycerides Cholesterol LDL Cholesterol Direct HDL Cholesterol PTH Intact Urine pH Urine WBC (Auto) Urine Creatinine Urine Total Protein Fluid Total Protein Vancomycin Trough Rheumatoid Factor Complement C4 Miscellaneous Test Flexitest 1 H Crossmatch 11/06/16 11/06/16 11/06/16 04:56 06:25 06:25 WBC RBC 2.50 L Hgb 7.3 L Hct 22.5 L MCV MCH MCHC RDW 16.9 H Plt Count Lymph % (Auto) [place] % (Auto) 10.5 H Lymph # [place] # 1.1 H Baso # Seg Neutrophils % Seg Neuts % (Manual) Lymphocytes % (Manual) Monocytes % (Manual) Eosinophils % (Manual) Basophils % (Manual) Nucleated RBC % Seg Neutrophils # Seg Neutrophils # Man Lymphocytes # (Manual) Monocytes # (Manual) Eosinophils # (Manual) Basophils # (Manual) PT INR Fibrinogen dRVVT Confirm Interp Factor V Activity POC ABG pH POC ABG pCO2 POC ABG pO2 ABG pO2 ABG HCO3 ABG Base Excess ABG Hemoglobin Oxyhemoglobin Sodium Potassium 5.1 H Chloride 95.9 L Carbon Dioxide BUN 52 H Creatinine 1.8 H Glucose 117 H POC Glucose 120 H Lactic Acid Calcium Phosphorus Magnesium Direct Bilirubin AST 103 H ALT 77 H Alkaline Phosphatase 285 H Lactate Dehydrogenase Troponin T C-Reactive Protein Total Protein 6.2 L Albumin 1.8 L Prealbumin 0.180 L Triglycerides Cholesterol LDL Cholesterol Direct HDL Cholesterol PTH Intact Urine pH Urine WBC (Auto) Urine Creatinine Urine Total Protein Fluid Total Protein Vancomycin Trough Rheumatoid Factor Complement C4 Miscellaneous Test Crossmatch 11/06/16 11/06/16 11/06/16 11:56 17:14 23:52 WBC RBC Hgb Hct MCV MCH MCHC RDW Plt Count Lymph % (Auto) [place] % (Auto) Lymph # [place] # Baso # Seg Neutrophils % Seg Neuts % (Manual) Lymphocytes % (Manual) Monocytes % (Manual) Eosinophils % (Manual) Basophils % (Manual) Nucleated RBC % Seg Neutrophils # Seg Neutrophils # Man Lymphocytes # (Manual) Monocytes # (Manual) Eosinophils # (Manual) Basophils # (Manual) PT INR Fibrinogen dRVVT Confirm Interp Factor V Activity POC ABG pH POC ABG pCO2 POC ABG pO2 ABG pO2 ABG HCO3 ABG Base Excess ABG Hemoglobin Oxyhemoglobin Sodium Potassium Chloride Carbon Dioxide BUN Creatinine Glucose POC Glucose 141 H 125 H 130 H Lactic Acid Calcium Phosphorus Magnesium Direct Bilirubin AST ALT Alkaline Phosphatase Lactate Dehydrogenase Troponin T C-Reactive Protein Total Protein Albumin Prealbumin Triglycerides Cholesterol LDL Cholesterol Direct HDL Cholesterol PTH Intact Urine pH Urine WBC (Auto) Urine Creatinine Urine Total Protein Fluid Total Protein Vancomycin Trough Rheumatoid Factor Complement C4 Miscellaneous Test Crossmatch 11/07/16 11/07/16 11/07/16 06:30 06:30 09:37 WBC RBC 2.18 L Hgb 6.3 L Hct 19.7 L* MCV MCH MCHC RDW 16.8 H Plt Count Lymph % (Auto) [place] % (Auto) 10.0 H Lymph # [place] # 1.0 H Baso # Seg Neutrophils % Seg Neuts % (Manual) Lymphocytes % (Manual) Monocytes % (Manual) Eosinophils % (Manual) Basophils % (Manual) Nucleated RBC % Seg Neutrophils # Seg Neutrophils # Man Lymphocytes # (Manual) Monocytes # (Manual) Eosinophils # (Manual) Basophils # (Manual) PT INR Fibrinogen dRVVT Confirm Interp Factor V Activity POC ABG pH POC ABG pCO2 POC ABG pO2 ABG pO2 ABG HCO3 ABG Base Excess ABG Hemoglobin Oxyhemoglobin Sodium 135 L Potassium Chloride 95.6 L Carbon Dioxide BUN 70 H Creatinine 2.0 H Glucose 126 H POC Glucose Lactic Acid Calcium Phosphorus Magnesium Direct Bilirubin AST ALT Alkaline Phosphatase Lactate Dehydrogenase Troponin T C-Reactive Protein Total Protein Albumin Prealbumin Triglycerides Cholesterol LDL Cholesterol Direct HDL Cholesterol PTH Intact Urine pH Urine WBC (Auto) Urine Creatinine Urine Total Protein Fluid Total Protein Vancomycin Trough Rheumatoid Factor Complement C4 Miscellaneous Test Crossmatch See Detail 11/07/16 11/07/16 11/07/16 12:52 18:51 21:26 WBC RBC Hgb Hct MCV MCH MCHC RDW Plt Count Lymph % (Auto) [place] % (Auto) Lymph # [place] # Baso # Seg Neutrophils % Seg Neuts % (Manual) Lymphocytes % (Manual) Monocytes % (Manual) Eosinophils % (Manual) Basophils % (Manual) Nucleated RBC % Seg Neutrophils # Seg Neutrophils # Man Lymphocytes # (Manual) Monocytes # (Manual) Eosinophils # (Manual) Basophils # (Manual) PT INR Fibrinogen dRVVT Confirm Interp Factor V Activity POC ABG pH 7.523 H POC ABG pCO2 34.6 L POC ABG pO2 53 L ABG pO2 ABG HCO3 ABG Base Excess ABG Hemoglobin Oxyhemoglobin Sodium Potassium Chloride Carbon Dioxide BUN Creatinine Glucose POC Glucose 142 H 155 H Lactic Acid Calcium Phosphorus Magnesium Direct Bilirubin AST ALT Alkaline Phosphatase Lactate Dehydrogenase Troponin T C-Reactive Protein Total Protein Albumin Prealbumin Triglycerides Cholesterol LDL Cholesterol Direct HDL Cholesterol PTH Intact Urine pH Urine WBC (Auto) Urine Creatinine Urine Total Protein Fluid Total Protein Vancomycin Trough Rheumatoid Factor Complement C4 Miscellaneous Test Crossmatch 11/07/16 11/08/16 11/08/16 21:34 13:03 23:37 WBC RBC 2.63 L Hgb 7.7 L Hct 22.7 L MCV MCH MCHC RDW 17.0 H Plt Count Lymph % (Auto) [place] % (Auto) Lymph # [place] # Baso # Seg Neutrophils % Seg Neuts % (Manual) Lymphocytes % (Manual) Monocytes % (Manual) Eosinophils % (Manual) Basophils % (Manual) Nucleated RBC % Seg Neutrophils # Seg Neutrophils # Man Lymphocytes # (Manual) Monocytes # (Manual) Eosinophils # (Manual) Basophils # (Manual) PT INR Fibrinogen dRVVT Confirm Interp Factor V Activity POC ABG pH 7.478 H POC ABG pCO2 34.0 L POC ABG pO2 50 L ABG pO2 ABG HCO3 ABG Base Excess ABG Hemoglobin Oxyhemoglobin Sodium Potassium Chloride Carbon Dioxide BUN Creatinine Glucose POC Glucose 113 H Lactic Acid Calcium Phosphorus Magnesium Direct Bilirubin AST ALT Alkaline Phosphatase Lactate Dehydrogenase Troponin T C-Reactive Protein Total Protein Albumin Prealbumin Triglycerides Cholesterol LDL Cholesterol Direct HDL Cholesterol PTH Intact Urine pH Urine WBC (Auto) Urine Creatinine Urine Total Protein Fluid Total Protein Vancomycin Trough Rheumatoid Factor Complement C4 Miscellaneous Test Crossmatch 11/09/16 11/09/16 11/09/16 04:35 10:15 18:21 WBC RBC 2.68 L Hgb 7.8 L Hct 23.3 L MCV MCH MCHC RDW 17.0 H Plt Count Lymph % (Auto) [place] % (Auto) 12.1 H Lymph # [place] # 1.1 H Baso # Seg Neutrophils % Seg Neuts % (Manual) Lymphocytes % (Manual) Monocytes % (Manual) Eosinophils % (Manual) Basophils % (Manual) Nucleated RBC % Seg Neutrophils # Seg Neutrophils # Man Lymphocytes # (Manual) Monocytes # (Manual) Eosinophils # (Manual) Basophils # (Manual) PT INR Fibrinogen dRVVT Confirm Interp Factor V Activity POC ABG pH POC ABG pCO2 POC ABG pO2 ABG pO2 ABG HCO3 ABG Base Excess ABG Hemoglobin Oxyhemoglobin Sodium Potassium Chloride Carbon Dioxide BUN 51 H Creatinine 1.8 H Glucose POC Glucose 60 L Lactic Acid Calcium 8.3 L Phosphorus Magnesium Direct Bilirubin AST ALT Alkaline Phosphatase Lactate Dehydrogenase Troponin T C-Reactive Protein Total Protein Albumin Prealbumin Triglycerides Cholesterol LDL Cholesterol Direct HDL Cholesterol PTH Intact Urine pH Urine WBC (Auto) Urine Creatinine Urine Total Protein Fluid Total Protein Vancomycin Trough Rheumatoid Factor Complement C4 Miscellaneous Test Crossmatch 11/09/16 11/10/16 11/10/16 18:55 07:00 11:51 WBC RBC Hgb Hct MCV MCH MCHC RDW Plt Count Lymph % (Auto) [place] % (Auto) Lymph # [place] # Baso # Seg Neutrophils % Seg Neuts % (Manual) Lymphocytes % (Manual) Monocytes % (Manual) Eosinophils % (Manual) Basophils % (Manual) Nucleated RBC % Seg Neutrophils # Seg Neutrophils # Man Lymphocytes # (Manual) Monocytes # (Manual) Eosinophils # (Manual) Basophils # (Manual) PT INR Fibrinogen dRVVT Confirm Interp Factor V Activity POC ABG pH POC ABG pCO2 POC ABG pO2 ABG pO2 ABG HCO3 ABG Base Excess ABG Hemoglobin Oxyhemoglobin Sodium Potassium 3.0 L D Chloride 97.4 L Carbon Dioxide BUN 28 H Creatinine 1.3 H Glucose POC Glucose 68 L 120 H Lactic Acid Calcium 7.8 L Phosphorus Magnesium Direct Bilirubin AST ALT Alkaline Phosphatase Lactate Dehydrogenase Troponin T C-Reactive Protein Total Protein Albumin Prealbumin Triglycerides Cholesterol LDL Cholesterol Direct HDL Cholesterol PTH Intact Urine pH Urine WBC (Auto) Urine Creatinine Urine Total Protein Fluid Total Protein Vancomycin Trough Rheumatoid Factor Complement C4 Miscellaneous Test Crossmatch 11/10/16 11/11/16 11/11/16 14:20 06:59 06:59 WBC RBC 2.81 L Hgb 8.1 L Hct 24.4 L MCV MCH MCHC RDW 16.4 H Plt Count Lymph % (Auto) [place] % (Auto) 10.8 H Lymph # [place] # 1.0 H Baso # Seg Neutrophils % Seg Neuts % (Manual) Lymphocytes % (Manual) Monocytes % (Manual) Eosinophils % (Manual) Basophils % (Manual) Nucleated RBC % Seg Neutrophils # Seg Neutrophils # Man Lymphocytes # (Manual) Monocytes # (Manual) Eosinophils # (Manual) Basophils # (Manual) PT INR Fibrinogen dRVVT Confirm Interp Factor V Activity POC ABG pH POC ABG pCO2 POC ABG pO2 ABG pO2 ABG HCO3 ABG Base Excess ABG Hemoglobin Oxyhemoglobin Sodium Potassium Chloride Carbon Dioxide BUN Creatinine Glucose POC Glucose Lactic Acid Calcium Phosphorus Magnesium Direct Bilirubin AST ALT Alkaline Phosphatase Lactate Dehydrogenase 196 H Troponin T C-Reactive Protein Total Protein 6.1 L Albumin Prealbumin Triglycerides Cholesterol LDL Cholesterol Direct HDL Cholesterol PTH Intact Urine pH Urine WBC (Auto) Urine Creatinine Urine Total Protein Fluid Total Protein < 3.0 L Vancomycin Trough Rheumatoid Factor Complement C4 Miscellaneous Test Crossmatch 11/11/16 11/11/16 11/12/16 06:59 09:50 04:00 WBC RBC Hgb Hct MCV MCH MCHC RDW Plt Count Lymph % (Auto) [place] % (Auto) Lymph # [place] # Baso # Seg Neutrophils % Seg Neuts % (Manual) Lymphocytes % (Manual) Monocytes % (Manual) Eosinophils % (Manual) Basophils % (Manual) Nucleated RBC % Seg Neutrophils # Seg Neutrophils # Man Lymphocytes # (Manual) Monocytes # (Manual) Eosinophils # (Manual) Basophils # (Manual) PT INR 1.18 H Fibrinogen dRVVT Confirm Interp Factor V Activity POC ABG pH POC ABG pCO2 POC ABG pO2 ABG pO2 ABG HCO3 ABG Base Excess ABG Hemoglobin Oxyhemoglobin Sodium 136 L 133 L Potassium Chloride 96.1 L 94.8 L Carbon Dioxide 21 L BUN 37 H 42 H Creatinine 1.8 H 2.0 H Glucose POC Glucose Lactic Acid Calcium Phosphorus Magnesium Direct Bilirubin AST ALT Alkaline Phosphatase Lactate Dehydrogenase Troponin T C-Reactive Protein Total Protein Albumin Prealbumin Triglycerides Cholesterol LDL Cholesterol Direct HDL Cholesterol PTH Intact Urine pH Urine WBC (Auto) Urine Creatinine Urine Total Protein Fluid Total Protein Vancomycin Trough Rheumatoid Factor Complement C4 Miscellaneous Test Crossmatch 11/12/16 11/12/16 11/13/16 04:00 23:55 05:53 WBC RBC Hgb 8.9 L Hct 27.2 L MCV MCH MCHC RDW Plt Count Lymph % (Auto) [place] % (Auto) Lymph # [place] # Baso # Seg Neutrophils % Seg Neuts % (Manual) Lymphocytes % (Manual) Monocytes % (Manual) Eosinophils % (Manual) Basophils % (Manual) Nucleated RBC % Seg Neutrophils # Seg Neutrophils # Man Lymphocytes # (Manual) Monocytes # (Manual) Eosinophils # (Manual) Basophils # (Manual) PT INR Fibrinogen dRVVT Confirm Interp Factor V Activity POC ABG pH POC ABG pCO2 POC ABG pO2 ABG pO2 ABG HCO3 ABG Base Excess ABG Hemoglobin Oxyhemoglobin Sodium Potassium Chloride Carbon Dioxide BUN Creatinine Glucose POC Glucose 132 H 120 H Lactic Acid Calcium Phosphorus Magnesium Direct Bilirubin AST ALT Alkaline Phosphatase Lactate Dehydrogenase Troponin T C-Reactive Protein Total Protein Albumin Prealbumin Triglycerides Cholesterol LDL Cholesterol Direct HDL Cholesterol PTH Intact Urine pH Urine WBC (Auto) Urine Creatinine Urine Total Protein Fluid Total Protein Vancomycin Trough Rheumatoid Factor Complement C4 Miscellaneous Test Crossmatch 11/13/16 11/13/16 11/13/16 11:43 17:09 23:41 WBC RBC Hgb Hct MCV MCH MCHC RDW Plt Count Lymph % (Auto) [place] % (Auto) Lymph # [place] # Baso # Seg Neutrophils % Seg Neuts % (Manual) Lymphocytes % (Manual) Monocytes % (Manual) Eosinophils % (Manual) Basophils % (Manual) Nucleated RBC % Seg Neutrophils # Seg Neutrophils # Man Lymphocytes # (Manual) Monocytes # (Manual) Eosinophils # (Manual) Basophils # (Manual) PT INR Fibrinogen dRVVT Confirm Interp Factor V Activity POC ABG pH POC ABG pCO2 POC ABG pO2 ABG pO2 ABG HCO3 ABG Base Excess ABG Hemoglobin Oxyhemoglobin Sodium Potassium Chloride Carbon Dioxide BUN Creatinine Glucose POC Glucose 114 H 113 H 108 H Lactic Acid Calcium Phosphorus Magnesium Direct Bilirubin AST ALT Alkaline Phosphatase Lactate Dehydrogenase Troponin T C-Reactive Protein Total Protein Albumin Prealbumin Triglycerides Cholesterol LDL Cholesterol Direct HDL Cholesterol PTH Intact Urine pH Urine WBC (Auto) Urine Creatinine Urine Total Protein Fluid Total Protein Vancomycin Trough Rheumatoid Factor Complement C4 Miscellaneous Test Crossmatch 11/13/16 11/15/16 11/15/16 Unknown 00:37 03:30 WBC 11.2 H RBC 2.72 L Hgb 7.6 L Hct 23.4 L MCV MCH MCHC RDW 16.5 H Plt Count Lymph % (Auto) [place] % (Auto) Lymph # [place] # Baso # Seg Neutrophils % Seg Neuts % (Manual) Lymphocytes % (Manual) Monocytes % (Manual) Eosinophils % (Manual) Basophils % (Manual) Nucleated RBC % Seg Neutrophils # Seg Neutrophils # Man Lymphocytes # (Manual) Monocytes # (Manual) Eosinophils # (Manual) Basophils # (Manual) PT INR Fibrinogen dRVVT Confirm Interp Factor V Activity POC ABG pH POC ABG pCO2 POC ABG pO2 ABG pO2 ABG HCO3 ABG Base Excess ABG Hemoglobin Oxyhemoglobin Sodium 135 L Potassium Chloride 95.2 L Carbon Dioxide BUN 52 H Creatinine 2.2 H Glucose POC Glucose 108 H Lactic Acid Calcium Phosphorus Magnesium Direct Bilirubin AST ALT Alkaline Phosphatase Lactate Dehydrogenase Troponin T C-Reactive Protein Total Protein Albumin Prealbumin Triglycerides Cholesterol LDL Cholesterol Direct HDL Cholesterol PTH Intact Urine pH Urine WBC (Auto) Urine Creatinine Urine Total Protein Fluid Total Protein Vancomycin Trough Rheumatoid Factor Complement C4 Miscellaneous Test Crossmatch 11/15/16 11/15/16 11/15/16 03:30 05:04 11:50 WBC RBC Hgb Hct MCV MCH MCHC RDW Plt Count Lymph % (Auto) [place] % (Auto) Lymph # [place] # Baso # Seg Neutrophils % Seg Neuts % (Manual) Lymphocytes % (Manual) Monocytes % (Manual) Eosinophils % (Manual) Basophils % (Manual) Nucleated RBC % Seg Neutrophils # Seg Neutrophils # Man Lymphocytes # (Manual) Monocytes # (Manual) Eosinophils # (Manual) Basophils # (Manual) PT INR Fibrinogen dRVVT Confirm Interp Factor V Activity POC ABG pH POC ABG pCO2 POC ABG pO2 ABG pO2 ABG HCO3 ABG Base Excess ABG Hemoglobin Oxyhemoglobin Sodium Potassium 3.4 L Chloride Carbon Dioxide BUN 25 H Creatinine 1.5 H Glucose 103 H POC Glucose 121 H 144 H Lactic Acid Calcium Phosphorus Magnesium Direct Bilirubin AST ALT Alkaline Phosphatase Lactate Dehydrogenase Troponin T C-Reactive Protein Total Protein Albumin Prealbumin Triglycerides Cholesterol LDL Cholesterol Direct HDL Cholesterol PTH Intact Urine pH Urine WBC (Auto) Urine Creatinine Urine Total Protein Fluid Total Protein Vancomycin Trough Rheumatoid Factor Complement C4 Miscellaneous Test Crossmatch 11/15/16 11/15/16 11/16/16 21:28 23:20 11:44 WBC RBC Hgb Hct MCV MCH MCHC RDW Plt Count Lymph % (Auto) [place] % (Auto) Lymph # [place] # Baso # Seg Neutrophils % Seg Neuts % (Manual) Lymphocytes % (Manual) Monocytes % (Manual) Eosinophils % (Manual) Basophils % (Manual) Nucleated RBC % Seg Neutrophils # Seg Neutrophils # Man Lymphocytes # (Manual) Monocytes # (Manual) Eosinophils # (Manual) Basophils # (Manual) PT INR Fibrinogen dRVVT Confirm Interp Factor V Activity POC ABG pH 7.462 H POC ABG pCO2 POC ABG pO2 71 L ABG pO2 ABG HCO3 ABG Base Excess ABG Hemoglobin Oxyhemoglobin Sodium Potassium Chloride Carbon Dioxide BUN Creatinine Glucose POC Glucose 116 H 133 H Lactic Acid Calcium Phosphorus Magnesium Direct Bilirubin AST ALT Alkaline Phosphatase Lactate Dehydrogenase Troponin T C-Reactive Protein Total Protein Albumin Prealbumin Triglycerides Cholesterol LDL Cholesterol Direct HDL Cholesterol PTH Intact Urine pH Urine WBC (Auto) Urine Creatinine Urine Total Protein Fluid Total Protein Vancomycin Trough Rheumatoid Factor Complement C4 Miscellaneous Test Crossmatch 11/16/16 11/16/16 11/16/16 12:20 17:05 23:35 WBC 11.7 H RBC 2.73 L Hgb 7.6 L Hct 23.7 L MCV MCH MCHC RDW 16.6 H Plt Count Lymph % (Auto) [place] % (Auto) Lymph # [place] # Baso # Seg Neutrophils % Seg Neuts % (Manual) Lymphocytes % (Manual) Monocytes % (Manual) Eosinophils % (Manual) Basophils % (Manual) Nucleated RBC % Seg Neutrophils # Seg Neutrophils # Man Lymphocytes # (Manual) Monocytes # (Manual) Eosinophils # (Manual) Basophils # (Manual) PT INR Fibrinogen dRVVT Confirm Interp Factor V Activity POC ABG pH POC ABG pCO2 POC ABG pO2 ABG pO2 ABG HCO3 ABG Base Excess ABG Hemoglobin Oxyhemoglobin Sodium Potassium Chloride Carbon Dioxide BUN Creatinine Glucose POC Glucose 154 H 125 H Lactic Acid Calcium Phosphorus Magnesium Direct Bilirubin AST ALT Alkaline Phosphatase Lactate Dehydrogenase Troponin T C-Reactive Protein Total Protein Albumin Prealbumin Triglycerides Cholesterol LDL Cholesterol Direct HDL Cholesterol PTH Intact Urine pH Urine WBC (Auto) Urine Creatinine Urine Total Protein Fluid Total Protein Vancomycin Trough Rheumatoid Factor Complement C4 Miscellaneous Test Crossmatch 11/17/16 11/17/16 11/17/16 03:20 03:20 03:20 WBC RBC 2.55 L Hgb 7.3 L Hct 21.9 L MCV MCH MCHC RDW 16.6 H Plt Count Lymph % (Auto) [place] % (Auto) 11.5 H Lymph # [place] # 1.1 H Baso # Seg Neutrophils % Seg Neuts % (Manual) Lymphocytes % (Manual) Monocytes % (Manual) Eosinophils % (Manual) Basophils % (Manual) Nucleated RBC % Seg Neutrophils # Seg Neutrophils # Man Lymphocytes # (Manual) Monocytes # (Manual) Eosinophils # (Manual) Basophils # (Manual) PT 16.8 H INR 1.37 H Fibrinogen dRVVT Confirm Interp Factor V Activity POC ABG pH POC ABG pCO2 POC ABG pO2 ABG pO2 ABG HCO3 ABG Base Excess ABG Hemoglobin Oxyhemoglobin Sodium Potassium 3.5 L Chloride Carbon Dioxide BUN 21 H Creatinine Glucose POC Glucose Lactic Acid Calcium 7.9 L Phosphorus Magnesium Direct Bilirubin AST ALT Alkaline Phosphatase Lactate Dehydrogenase Troponin T C-Reactive Protein Total Protein Albumin Prealbumin Triglycerides Cholesterol LDL Cholesterol Direct HDL Cholesterol PTH Intact Urine pH Urine WBC (Auto) Urine Creatinine Urine Total Protein Fluid Total Protein Vancomycin Trough Rheumatoid Factor Complement C4 Miscellaneous Test Crossmatch 11/17/16 11/17/16 11/17/16 06:34 11:21 21:22 WBC RBC Hgb Hct MCV MCH MCHC RDW Plt Count Lymph % (Auto) [place] % (Auto) Lymph # [place] # Baso # Seg Neutrophils % Seg Neuts % (Manual) Lymphocytes % (Manual) Monocytes % (Manual) Eosinophils % (Manual) Basophils % (Manual) Nucleated RBC % Seg Neutrophils # Seg Neutrophils # Man Lymphocytes # (Manual) Monocytes # (Manual) Eosinophils # (Manual) Basophils # (Manual) PT INR Fibrinogen dRVVT Confirm Interp Factor V Activity POC ABG pH 7.467 H POC ABG pCO2 POC ABG pO2 73 L ABG pO2 ABG HCO3 ABG Base Excess ABG Hemoglobin Oxyhemoglobin Sodium Potassium Chloride Carbon Dioxide BUN Creatinine Glucose POC Glucose 121 H 119 H Lactic Acid Calcium Phosphorus Magnesium Direct Bilirubin AST ALT Alkaline Phosphatase Lactate Dehydrogenase Troponin T C-Reactive Protein Total Protein Albumin Prealbumin Triglycerides Cholesterol LDL Cholesterol Direct HDL Cholesterol PTH Intact Urine pH Urine WBC (Auto) Urine Creatinine Urine Total Protein Fluid Total Protein Vancomycin Trough Rheumatoid Factor Complement C4 Miscellaneous Test Crossmatch 11/18/16 11/18/16 11/19/16 12:16 17:19 00:00 WBC RBC Hgb Hct MCV MCH MCHC RDW Plt Count Lymph % (Auto) [place] % (Auto) Lymph # [place] # Baso # Seg Neutrophils % Seg Neuts % (Manual) Lymphocytes % (Manual) Monocytes % (Manual) Eosinophils % (Manual) Basophils % (Manual) Nucleated RBC % Seg Neutrophils # Seg Neutrophils # Man Lymphocytes # (Manual) Monocytes # (Manual) Eosinophils # (Manual) Basophils # (Manual) PT INR Fibrinogen dRVVT Confirm Interp Factor V Activity POC ABG pH POC ABG pCO2 POC ABG pO2 ABG pO2 ABG HCO3 ABG Base Excess ABG Hemoglobin Oxyhemoglobin Sodium Potassium Chloride Carbon Dioxide BUN Creatinine Glucose POC Glucose 124 H 162 H 139 H Lactic Acid Calcium Phosphorus Magnesium Direct Bilirubin AST ALT Alkaline Phosphatase Lactate Dehydrogenase Troponin T C-Reactive Protein Total Protein Albumin Prealbumin Triglycerides Cholesterol LDL Cholesterol Direct HDL Cholesterol PTH Intact Urine pH Urine WBC (Auto) Urine Creatinine Urine Total Protein Fluid Total Protein Vancomycin Trough Rheumatoid Factor Complement C4 Miscellaneous Test Crossmatch 11/19/16 11/19/16 11/20/16 05:00 12:43 00:40 WBC RBC Hgb Hct MCV MCH MCHC RDW Plt Count Lymph % (Auto) [place] % (Auto) Lymph # [place] # Baso # Seg Neutrophils % Seg Neuts % (Manual) Lymphocytes % (Manual) Monocytes % (Manual) Eosinophils % (Manual) Basophils % (Manual) Nucleated RBC % Seg Neutrophils # Seg Neutrophils # Man Lymphocytes # (Manual) Monocytes # (Manual) Eosinophils # (Manual) Basophils # (Manual) PT INR Fibrinogen dRVVT Confirm Interp Factor V Activity POC ABG pH POC ABG pCO2 POC ABG pO2 ABG pO2 ABG HCO3 ABG Base Excess ABG Hemoglobin Oxyhemoglobin Sodium Potassium Chloride Carbon Dioxide BUN Creatinine Glucose POC Glucose 110 H 125 H 136 H Lactic Acid Calcium Phosphorus Magnesium Direct Bilirubin AST ALT Alkaline Phosphatase Lactate Dehydrogenase Troponin T C-Reactive Protein Total Protein Albumin Prealbumin Triglycerides Cholesterol LDL Cholesterol Direct HDL Cholesterol PTH Intact Urine pH Urine WBC (Auto) Urine Creatinine Urine Total Protein Fluid Total Protein Vancomycin Trough Rheumatoid Factor Complement C4 Miscellaneous Test Crossmatch 11/20/16 11/20/16 11/20/16 05:00 05:00 05:51 WBC 13.1 H RBC 2.74 L Hgb 7.7 L Hct 23.6 L MCV MCH MCHC RDW 16.9 H Plt Count Lymph % (Auto) [place] % (Auto) 10.8 H Lymph # [place] # 1.4 H Baso # Seg Neutrophils % Seg Neuts % (Manual) Lymphocytes % (Manual) Monocytes % (Manual) Eosinophils % (Manual) Basophils % (Manual) Nucleated RBC % Seg Neutrophils # 7.9 H Seg Neutrophils # Man Lymphocytes # (Manual) Monocytes # (Manual) Eosinophils # (Manual) Basophils # (Manual) PT INR Fibrinogen dRVVT Confirm Interp Factor V Activity POC ABG pH POC ABG pCO2 POC ABG pO2 ABG pO2 ABG HCO3 ABG Base Excess ABG Hemoglobin Oxyhemoglobin Sodium Potassium Chloride Carbon Dioxide BUN 31 H Creatinine 1.8 H Glucose 129 H POC Glucose 133 H Lactic Acid Calcium Phosphorus Magnesium Direct Bilirubin AST ALT Alkaline Phosphatase Lactate Dehydrogenase Troponin T C-Reactive Protein Total Protein Albumin Prealbumin Triglycerides Cholesterol LDL Cholesterol Direct HDL Cholesterol PTH Intact Urine pH Urine WBC (Auto) Urine Creatinine Urine Total Protein Fluid Total Protein Vancomycin Trough Rheumatoid Factor Complement C4 Miscellaneous Test Crossmatch 11/20/16 11/20/16 11/21/16 12:40 18:10 01:20 WBC RBC Hgb Hct MCV MCH MCHC RDW Plt Count Lymph % (Auto) [place] % (Auto) Lymph # [place] # Baso # Seg Neutrophils % Seg Neuts % (Manual) Lymphocytes % (Manual) Monocytes % (Manual) Eosinophils % (Manual) Basophils % (Manual) Nucleated RBC % Seg Neutrophils # Seg Neutrophils # Man Lymphocytes # (Manual) Monocytes # (Manual) Eosinophils # (Manual) Basophils # (Manual) PT INR Fibrinogen dRVVT Confirm Interp Factor V Activity POC ABG pH POC ABG pCO2 POC ABG pO2 ABG pO2 ABG HCO3 ABG Base Excess ABG Hemoglobin Oxyhemoglobin Sodium Potassium Chloride Carbon Dioxide BUN Creatinine Glucose POC Glucose 134 H 138 H 136 H Lactic Acid Calcium Phosphorus Magnesium Direct Bilirubin AST ALT Alkaline Phosphatase Lactate Dehydrogenase Troponin T C-Reactive Protein Total Protein Albumin Prealbumin Triglycerides Cholesterol LDL Cholesterol Direct HDL Cholesterol PTH Intact Urine pH Urine WBC (Auto) Urine Creatinine Urine Total Protein Fluid Total Protein Vancomycin Trough Rheumatoid Factor Complement C4 Miscellaneous Test Crossmatch 11/21/16 11/21/16 11/21/16 07:04 07:45 07:45 WBC 22.0 H RBC 2.91 L Hgb 8.2 L Hct 25.4 L MCV MCH MCHC RDW 17.1 H Plt Count Lymph % (Auto) [place] % (Auto) Lymph # [place] # Baso # Seg Neutrophils % Seg Neuts % (Manual) Lymphocytes % (Manual) 8.0 L Monocytes % (Manual) Eosinophils % (Manual) Basophils % (Manual) Nucleated RBC % Seg Neutrophils # Seg Neutrophils # Man 14.7 H Lymphocytes # (Manual) Monocytes # (Manual) 1.1 H Eosinophils # (Manual) Basophils # (Manual) PT INR Fibrinogen dRVVT Confirm Interp Factor V Activity POC ABG pH POC ABG pCO2 POC ABG pO2 ABG pO2 ABG HCO3 ABG Base Excess ABG Hemoglobin Oxyhemoglobin Sodium Potassium Chloride Carbon Dioxide BUN 42 H Creatinine 2.0 H Glucose POC Glucose 108 H Lactic Acid Calcium Phosphorus Magnesium Direct Bilirubin AST ALT Alkaline Phosphatase Lactate Dehydrogenase Troponin T C-Reactive Protein Total Protein Albumin Prealbumin Triglycerides Cholesterol LDL Cholesterol Direct HDL Cholesterol PTH Intact Urine pH Urine WBC (Auto) Urine Creatinine Urine Total Protein Fluid Total Protein Vancomycin Trough Rheumatoid Factor Complement C4 Miscellaneous Test Crossmatch 11/21/16 11/21/16 11/21/16 08:38 10:09 11:20 WBC RBC Hgb Hct MCV MCH MCHC RDW Plt Count Lymph % (Auto) [place] % (Auto) Lymph # [place] # Baso # Seg Neutrophils % Seg Neuts % (Manual) Lymphocytes % (Manual) Monocytes % (Manual) Eosinophils % (Manual) Basophils % (Manual) Nucleated RBC % Seg Neutrophils # Seg Neutrophils # Man Lymphocytes # (Manual) Monocytes # (Manual) Eosinophils # (Manual) Basophils # (Manual) PT INR Fibrinogen dRVVT Confirm Interp Factor V Activity POC ABG pH 7.346 L POC ABG pCO2 34.4 L POC ABG pO2 314 H ABG pO2 ABG HCO3 ABG Base Excess ABG Hemoglobin Oxyhemoglobin Sodium Potassium Chloride Carbon Dioxide BUN Creatinine Glucose POC Glucose 195 H 153 H Lactic Acid Calcium Phosphorus Magnesium Direct Bilirubin AST ALT Alkaline Phosphatase Lactate Dehydrogenase Troponin T C-Reactive Protein Total Protein Albumin Prealbumin Triglycerides Cholesterol LDL Cholesterol Direct HDL Cholesterol PTH Intact Urine pH Urine WBC (Auto) Urine Creatinine Urine Total Protein Fluid Total Protein Vancomycin Trough Rheumatoid Factor Complement C4 Miscellaneous Test Crossmatch 11/21/16 11/22/16 11/22/16 23:37 04:48 05:00 WBC 29.7 H RBC 2.73 L Hgb 7.5 L Hct 24.2 L MCV MCH 27 L MCHC RDW 17.4 H Plt Count Lymph % (Auto) [place] % (Auto) Lymph # [place] # Baso # Seg Neutrophils % Seg Neuts % (Manual) Lymphocytes % (Manual) 7.0 L Monocytes % (Manual) Eosinophils % (Manual) Basophils % (Manual) Nucleated RBC % Seg Neutrophils # Seg Neutrophils # Man 15.4 H Lymphocytes # (Manual) Monocytes # (Manual) Eosinophils # (Manual) Basophils # (Manual) PT INR Fibrinogen dRVVT Confirm Interp Factor V Activity POC ABG pH POC ABG pCO2 24.6 L POC ABG pO2 189 H ABG pO2 ABG HCO3 ABG Base Excess ABG Hemoglobin Oxyhemoglobin Sodium Potassium Chloride Carbon Dioxide BUN Creatinine Glucose POC Glucose 65 L Lactic Acid Calcium Phosphorus Magnesium Direct Bilirubin AST ALT Alkaline Phosphatase Lactate Dehydrogenase Troponin T C-Reactive Protein Total Protein Albumin Prealbumin Triglycerides Cholesterol LDL Cholesterol Direct HDL Cholesterol PTH Intact Urine pH Urine WBC (Auto) Urine Creatinine Urine Total Protein Fluid Total Protein Vancomycin Trough Rheumatoid Factor Complement C4 Miscellaneous Test Crossmatch 11/22/16 11/23/16 11/23/16 05:00 03:44 04:06 WBC RBC 2.52 L Hgb 7.2 L Hct 21.5 L MCV MCH MCHC RDW 17.1 H Plt Count Lymph % (Auto) [place] % (Auto) 12.4 H Lymph # [place] # 1.4 H Baso # Seg Neutrophils % Seg Neuts % (Manual) Lymphocytes % (Manual) Monocytes % (Manual) Eosinophils % (Manual) Basophils % (Manual) Nucleated RBC % Seg Neutrophils # Seg Neutrophils # Man Lymphocytes # (Manual) Monocytes # (Manual) Eosinophils # (Manual) Basophils # (Manual) PT INR Fibrinogen dRVVT Confirm Interp Factor V Activity POC ABG pH 7.493 H POC ABG pCO2 29.5 L POC ABG pO2 49 L ABG pO2 ABG HCO3 ABG Base Excess ABG Hemoglobin Oxyhemoglobin Sodium 134 L Potassium Chloride 95.9 L Carbon Dioxide 14 L D BUN 51 H Creatinine 2.6 H Glucose POC Glucose Lactic Acid Calcium Phosphorus Magnesium Direct Bilirubin AST ALT Alkaline Phosphatase Lactate Dehydrogenase Troponin T C-Reactive Protein Total Protein Albumin Prealbumin Triglycerides Cholesterol LDL Cholesterol Direct HDL Cholesterol PTH Intact Urine pH Urine WBC (Auto) Urine Creatinine Urine Total Protein Fluid Total Protein Vancomycin Trough Rheumatoid Factor Complement C4 Miscellaneous Test Crossmatch 11/23/16 11/23/16 11/24/16 04:06 11:29 06:39 WBC RBC Hgb Hct MCV MCH MCHC RDW Plt Count Lymph % (Auto) [place] % (Auto) Lymph # [place] # Baso # Seg Neutrophils % Seg Neuts % (Manual) Lymphocytes % (Manual) Monocytes % (Manual) Eosinophils % (Manual) Basophils % (Manual) Nucleated RBC % Seg Neutrophils # Seg Neutrophils # Man Lymphocytes # (Manual) Monocytes # (Manual) Eosinophils # (Manual) Basophils # (Manual) PT INR Fibrinogen dRVVT Confirm Interp Factor V Activity POC ABG pH POC ABG pCO2 POC ABG pO2 ABG pO2 ABG HCO3 ABG Base Excess ABG Hemoglobin Oxyhemoglobin Sodium 136 L Potassium Chloride 95.2 L Carbon Dioxide BUN 60 H Creatinine 2.9 H Glucose POC Glucose 69 L 305 H Lactic Acid Calcium Phosphorus Magnesium 1.60 L Direct Bilirubin AST ALT Alkaline Phosphatase Lactate Dehydrogenase Troponin T C-Reactive Protein Total Protein Albumin Prealbumin Triglycerides Cholesterol LDL Cholesterol Direct HDL Cholesterol PTH Intact Urine pH Urine WBC (Auto) Urine Creatinine Urine Total Protein Fluid Total Protein Vancomycin Trough Rheumatoid Factor Complement C4 Miscellaneous Test Crossmatch 11/24/16 11/24/16 11/24/16 06:43 08:08 08:08 WBC 11.2 H RBC 2.47 L Hgb 6.8 L Hct 20.6 L MCV MCH MCHC RDW 17.0 H Plt Count Lymph % (Auto) [place] % (Auto) 10.3 H Lymph # [place] # 1.2 H Baso # Seg Neutrophils % Seg Neuts % (Manual) Lymphocytes % (Manual) Monocytes % (Manual) Eosinophils % (Manual) Basophils % (Manual) Nucleated RBC % Seg Neutrophils # Seg Neutrophils # Man Lymphocytes # (Manual) Monocytes # (Manual) Eosinophils # (Manual) Basophils # (Manual) PT INR Fibrinogen dRVVT Confirm Interp Factor V Activity POC ABG pH POC ABG pCO2 POC ABG pO2 ABG pO2 ABG HCO3 ABG Base Excess ABG Hemoglobin Oxyhemoglobin Sodium 135 L Potassium Chloride 96.3 L Carbon Dioxide BUN 61 H Creatinine 3.1 H Glucose POC Glucose 62 L Lactic Acid Calcium 8.2 L Phosphorus Magnesium Direct Bilirubin AST ALT Alkaline Phosphatase Lactate Dehydrogenase Troponin T C-Reactive Protein Total Protein Albumin Prealbumin Triglycerides Cholesterol LDL Cholesterol Direct HDL Cholesterol PTH Intact Urine pH Urine WBC (Auto) Urine Creatinine Urine Total Protein Fluid Total Protein Vancomycin Trough Rheumatoid Factor Complement C4 Miscellaneous Test Crossmatch 11/24/16 11/24/16 11/24/16 08:34 11:20 12:41 WBC RBC Hgb Hct MCV MCH MCHC RDW Plt Count Lymph % (Auto) [place] % (Auto) Lymph # [place] # Baso # Seg Neutrophils % Seg Neuts % (Manual) Lymphocytes % (Manual) Monocytes % (Manual) Eosinophils % (Manual) Basophils % (Manual) Nucleated RBC % Seg Neutrophils # Seg Neutrophils # Man Lymphocytes # (Manual) Monocytes # (Manual) Eosinophils # (Manual) Basophils # (Manual) PT INR Fibrinogen dRVVT Confirm Interp Factor V Activity POC ABG pH POC ABG pCO2 POC ABG pO2 ABG pO2 ABG HCO3 ABG Base Excess ABG Hemoglobin Oxyhemoglobin Sodium Potassium Chloride Carbon Dioxide BUN Creatinine Glucose POC Glucose 108 H Lactic Acid Calcium Phosphorus Magnesium 1.60 L Direct Bilirubin AST ALT Alkaline Phosphatase Lactate Dehydrogenase Troponin T C-Reactive Protein Total Protein Albumin Prealbumin Triglycerides Cholesterol LDL Cholesterol Direct HDL Cholesterol PTH Intact Urine pH Urine WBC (Auto) Urine Creatinine Urine Total Protein Fluid Total Protein Vancomycin Trough Rheumatoid Factor Complement C4 Miscellaneous Test Crossmatch See Detail 11/25/16 11/25/16 11/25/16 00:03 04:42 04:42 WBC RBC 3.03 L Hgb 8.6 L Hct 25.3 L MCV MCH MCHC RDW 16.2 H Plt Count Lymph % (Auto) [place] % (Auto) 8.1 H Lymph # [place] # Baso # Seg Neutrophils % 71.3 H Seg Neuts % (Manual) Lymphocytes % (Manual) Monocytes % (Manual) Eosinophils % (Manual) Basophils % (Manual) Nucleated RBC % Seg Neutrophils # Seg Neutrophils # Man Lymphocytes # (Manual) Monocytes # (Manual) Eosinophils # (Manual) Basophils # (Manual) PT INR Fibrinogen dRVVT Confirm Interp Factor V Activity POC ABG pH POC ABG pCO2 POC ABG pO2 ABG pO2 ABG HCO3 ABG Base Excess ABG Hemoglobin Oxyhemoglobin Sodium Potassium Chloride Carbon Dioxide BUN 61 H Creatinine 3.0 H Glucose 102 H POC Glucose 113 H Lactic Acid Calcium 8.2 L Phosphorus Magnesium Direct Bilirubin AST ALT Alkaline Phosphatase 142 H Lactate Dehydrogenase Troponin T C-Reactive Protein Total Protein 5.7 L Albumin 1.5 L Prealbumin Triglycerides Cholesterol LDL Cholesterol Direct HDL Cholesterol PTH Intact Urine pH Urine WBC (Auto) Urine Creatinine Urine Total Protein Fluid Total Protein Vancomycin Trough Rheumatoid Factor Complement C4 Miscellaneous Test Crossmatch 11/25/16 11/25/16 11/25/16 05:12 11:31 14:12 WBC RBC Hgb Hct MCV MCH MCHC RDW Plt Count Lymph % (Auto) [place] % (Auto) Lymph # [place] # Baso # Seg Neutrophils % Seg Neuts % (Manual) Lymphocytes % (Manual) Monocytes % (Manual) Eosinophils % (Manual) Basophils % (Manual) Nucleated RBC % Seg Neutrophils # Seg Neutrophils # Man Lymphocytes # (Manual) Monocytes # (Manual) Eosinophils # (Manual) Basophils # (Manual) PT INR Fibrinogen dRVVT Confirm Interp Factor V Activity POC ABG pH 7.487 H POC ABG pCO2 POC ABG pO2 153 H ABG pO2 ABG HCO3 ABG Base Excess ABG Hemoglobin Oxyhemoglobin Sodium Potassium Chloride Carbon Dioxide BUN Creatinine Glucose POC Glucose 131 H 140 H Lactic Acid Calcium Phosphorus Magnesium Direct Bilirubin AST ALT Alkaline Phosphatase Lactate Dehydrogenase Troponin T C-Reactive Protein Total Protein Albumin Prealbumin Triglycerides Cholesterol LDL Cholesterol Direct HDL Cholesterol PTH Intact Urine pH Urine WBC (Auto) Urine Creatinine Urine Total Protein Fluid Total Protein Vancomycin Trough Rheumatoid Factor Complement C4 Miscellaneous Test Crossmatch 11/25/16 11/26/16 11/26/16 17:23 00:09 05:13 WBC RBC 2.94 L Hgb 8.4 L Hct 24.6 L MCV MCH MCHC RDW 16.4 H Plt Count Lymph % (Auto) [place] % (Auto) 12.3 H Lymph # [place] # 1.1 H Baso # Seg Neutrophils % Seg Neuts % (Manual) Lymphocytes % (Manual) Monocytes % (Manual) Eosinophils % (Manual) Basophils % (Manual) Nucleated RBC % Seg Neutrophils # Seg Neutrophils # Man Lymphocytes # (Manual) Monocytes # (Manual) Eosinophils # (Manual) Basophils # (Manual) PT INR Fibrinogen dRVVT Confirm Interp Factor V Activity POC ABG pH POC ABG pCO2 POC ABG pO2 ABG pO2 ABG HCO3 ABG Base Excess ABG Hemoglobin Oxyhemoglobin Sodium Potassium Chloride Carbon Dioxide BUN Creatinine Glucose POC Glucose 146 H 112 H Lactic Acid Calcium Phosphorus Magnesium Direct Bilirubin AST ALT Alkaline Phosphatase Lactate Dehydrogenase Troponin T C-Reactive Protein Total Protein Albumin Prealbumin Triglycerides Cholesterol LDL Cholesterol Direct HDL Cholesterol PTH Intact Urine pH Urine WBC (Auto) Urine Creatinine Urine Total Protein Fluid Total Protein Vancomycin Trough Rheumatoid Factor Complement C4 Miscellaneous Test Crossmatch 11/26/16 11/26/16 11/26/16 05:13 05:28 11:53 WBC RBC Hgb Hct MCV MCH MCHC RDW Plt Count Lymph % (Auto) [place] % (Auto) Lymph # [place] # Baso # Seg Neutrophils % Seg Neuts % (Manual) Lymphocytes % (Manual) Monocytes % (Manual) Eosinophils % (Manual) Basophils % (Manual) Nucleated RBC % Seg Neutrophils # Seg Neutrophils # Man Lymphocytes # (Manual) Monocytes # (Manual) Eosinophils # (Manual) Basophils # (Manual) PT INR Fibrinogen dRVVT Confirm Interp Factor V Activity POC ABG pH POC ABG pCO2 POC ABG pO2 ABG pO2 ABG HCO3 ABG Base Excess ABG Hemoglobin Oxyhemoglobin Sodium Potassium Chloride 97.8 L Carbon Dioxide BUN 37 H Creatinine 2.0 H Glucose 109 H POC Glucose 117 H 111 H Lactic Acid Calcium 7.9 L Phosphorus 1.80 L D Magnesium Direct Bilirubin AST ALT Alkaline Phosphatase Lactate Dehydrogenase Troponin T C-Reactive Protein Total Protein Albumin Prealbumin Triglycerides Cholesterol LDL Cholesterol Direct HDL Cholesterol PTH Intact Urine pH Urine WBC (Auto) Urine Creatinine Urine Total Protein Fluid Total Protein Vancomycin Trough Rheumatoid Factor Complement C4 Miscellaneous Test Crossmatch 11/26/16 11/27/16 11/27/16 17:14 04:50 06:02 WBC RBC Hgb Hct MCV MCH MCHC RDW Plt Count Lymph % (Auto) [place] % (Auto) Lymph # [place] # Baso # Seg Neutrophils % Seg Neuts % (Manual) Lymphocytes % (Manual) Monocytes % (Manual) Eosinophils % (Manual) Basophils % (Manual) Nucleated RBC % Seg Neutrophils # Seg Neutrophils # Man Lymphocytes # (Manual) Monocytes # (Manual) Eosinophils # (Manual) Basophils # (Manual) PT INR Fibrinogen dRVVT Confirm Interp Factor V Activity POC ABG pH POC ABG pCO2 POC ABG pO2 ABG pO2 75.2 L ABG HCO3 26.4 H ABG Base Excess ABG Hemoglobin 7.6 L Oxyhemoglobin 94.8 L Sodium Potassium Chloride Carbon Dioxide BUN 49 H Creatinine 2.3 H Glucose POC Glucose 115 H Lactic Acid Calcium Phosphorus 1.50 L Magnesium Direct Bilirubin AST ALT Alkaline Phosphatase Lactate Dehydrogenase Troponin T C-Reactive Protein Total Protein Albumin Prealbumin Triglycerides Cholesterol LDL Cholesterol Direct HDL Cholesterol PTH Intact Urine pH Urine WBC (Auto) Urine Creatinine Urine Total Protein Fluid Total Protein Vancomycin Trough Rheumatoid Factor Complement C4 Miscellaneous Test Crossmatch 11/27/16 11/27/16 11/27/16 06:02 11:25 17:25 WBC 11.6 H RBC 2.75 L Hgb 7.6 L Hct 23.4 L MCV MCH MCHC RDW 16.5 H Plt Count Lymph % (Auto) [place] % (Auto) Lymph # [place] # Baso # Seg Neutrophils % Seg Neuts % (Manual) Lymphocytes % (Manual) Monocytes % (Manual) Eosinophils % (Manual) Basophils % (Manual) Nucleated RBC % Seg Neutrophils # Seg Neutrophils # Man Lymphocytes # (Manual) Monocytes # (Manual) Eosinophils # (Manual) Basophils # (Manual) PT INR Fibrinogen dRVVT Confirm Interp Factor V Activity POC ABG pH POC ABG pCO2 POC ABG pO2 ABG pO2 ABG HCO3 ABG Base Excess ABG Hemoglobin Oxyhemoglobin Sodium Potassium Chloride Carbon Dioxide BUN Creatinine Glucose POC Glucose 114 H 126 H Lactic Acid Calcium Phosphorus Magnesium Direct Bilirubin AST ALT Alkaline Phosphatase Lactate Dehydrogenase Troponin T C-Reactive Protein Total Protein Albumin Prealbumin Triglycerides Cholesterol LDL Cholesterol Direct HDL Cholesterol PTH Intact Urine pH Urine WBC (Auto) Urine Creatinine Urine Total Protein Fluid Total Protein Vancomycin Trough Rheumatoid Factor Complement C4 Miscellaneous Test Crossmatch 11/28/16 11/28/16 11/28/16 04:45 05:33 05:44 WBC RBC Hgb Hct MCV MCH MCHC RDW Plt Count Lymph % (Auto) [place] % (Auto) Lymph # [place] # Baso # Seg Neutrophils % Seg Neuts % (Manual) Lymphocytes % (Manual) Monocytes % (Manual) Eosinophils % (Manual) Basophils % (Manual) Nucleated RBC % Seg Neutrophils # Seg Neutrophils # Man Lymphocytes # (Manual) Monocytes # (Manual) Eosinophils # (Manual) Basophils # (Manual) PT INR Fibrinogen dRVVT Confirm Interp Factor V Activity POC ABG pH POC ABG pCO2 POC ABG pO2 ABG pO2 99.3 H ABG HCO3 ABG Base Excess ABG Hemoglobin 8.3 L Oxyhemoglobin Sodium Potassium Chloride Carbon Dioxide BUN 63 H Creatinine 2.4 H Glucose 102 H POC Glucose 108 H Lactic Acid Calcium Phosphorus 1.80 L Magnesium Direct Bilirubin AST ALT Alkaline Phosphatase Lactate Dehydrogenase Troponin T C-Reactive Protein Total Protein Albumin Prealbumin Triglycerides Cholesterol LDL Cholesterol Direct HDL Cholesterol PTH Intact Urine pH Urine WBC (Auto) Urine Creatinine Urine Total Protein Fluid Total Protein Vancomycin Trough Rheumatoid Factor Complement C4 Miscellaneous Test Crossmatch 11/28/16 11/28/16 11/28/16 12:31 16:09 23:46 WBC RBC Hgb Hct MCV MCH MCHC RDW Plt Count Lymph % (Auto) [place] % (Auto) Lymph # [place] # Baso # Seg Neutrophils % Seg Neuts % (Manual) Lymphocytes % (Manual) Monocytes % (Manual) Eosinophils % (Manual) Basophils % (Manual) Nucleated RBC % Seg Neutrophils # Seg Neutrophils # Man Lymphocytes # (Manual) Monocytes # (Manual) Eosinophils # (Manual) Basophils # (Manual) PT INR Fibrinogen dRVVT Confirm Interp Factor V Activity POC ABG pH POC ABG pCO2 POC ABG pO2 ABG pO2 ABG HCO3 ABG Base Excess ABG Hemoglobin Oxyhemoglobin Sodium Potassium Chloride Carbon Dioxide BUN Creatinine Glucose POC Glucose 126 H 111 H 119 H Lactic Acid Calcium Phosphorus Magnesium Direct Bilirubin AST ALT Alkaline Phosphatase Lactate Dehydrogenase Troponin T C-Reactive Protein Total Protein Albumin Prealbumin Triglycerides Cholesterol LDL Cholesterol Direct HDL Cholesterol PTH Intact Urine pH Urine WBC (Auto) Urine Creatinine Urine Total Protein Fluid Total Protein Vancomycin Trough Rheumatoid Factor Complement C4 Miscellaneous Test Crossmatch 11/29/16 11/29/16 11/29/16 03:33 04:52 05:10 WBC RBC Hgb Hct MCV MCH MCHC RDW Plt Count Lymph % (Auto) [place] % (Auto) Lymph # [place] # Baso # Seg Neutrophils % Seg Neuts % (Manual) Lymphocytes % (Manual) Monocytes % (Manual) Eosinophils % (Manual) Basophils % (Manual) Nucleated RBC % Seg Neutrophils # Seg Neutrophils # Man Lymphocytes # (Manual) Monocytes # (Manual) Eosinophils # (Manual) Basophils # (Manual) PT INR Fibrinogen dRVVT Confirm Interp Factor V Activity POC ABG pH POC ABG pCO2 POC ABG pO2 ABG pO2 ABG HCO3 ABG Base Excess ABG Hemoglobin 7.0 L Oxyhemoglobin 94.9 L Sodium Potassium Chloride Carbon Dioxide BUN 73 H Creatinine 2.7 H Glucose POC Glucose 108 H Lactic Acid Calcium Phosphorus Magnesium Direct Bilirubin AST ALT Alkaline Phosphatase Lactate Dehydrogenase Troponin T C-Reactive Protein Total Protein Albumin Prealbumin Triglycerides Cholesterol LDL Cholesterol Direct HDL Cholesterol PTH Intact Urine pH Urine WBC (Auto) Urine Creatinine Urine Total Protein Fluid Total Protein Vancomycin Trough Rheumatoid Factor Complement C4 Miscellaneous Test Crossmatch 11/29/16 11/29/16 11/29/16 12:16 18:05 23:46 WBC RBC Hgb Hct MCV MCH MCHC RDW Plt Count Lymph % (Auto) [place] % (Auto) Lymph # [place] # Baso # Seg Neutrophils % Seg Neuts % (Manual) Lymphocytes % (Manual) Monocytes % (Manual) Eosinophils % (Manual) Basophils % (Manual) Nucleated RBC % Seg Neutrophils # Seg Neutrophils # Man Lymphocytes # (Manual) Monocytes # (Manual) Eosinophils # (Manual) Basophils # (Manual) PT INR Fibrinogen dRVVT Confirm Interp Factor V Activity POC ABG pH POC ABG pCO2 POC ABG pO2 ABG pO2 ABG HCO3 ABG Base Excess ABG Hemoglobin Oxyhemoglobin Sodium Potassium Chloride Carbon Dioxide BUN Creatinine Glucose POC Glucose 133 H 146 H 141 H Lactic Acid Calcium Phosphorus Magnesium Direct Bilirubin AST ALT Alkaline Phosphatase Lactate Dehydrogenase Troponin T C-Reactive Protein Total Protein Albumin Prealbumin Triglycerides Cholesterol LDL Cholesterol Direct HDL Cholesterol PTH Intact Urine pH Urine WBC (Auto) Urine Creatinine Urine Total Protein Fluid Total Protein Vancomycin Trough Rheumatoid Factor Complement C4 Miscellaneous Test Crossmatch 11/30/16 11/30/16 11/30/16 04:17 04:17 04:32 WBC 12.0 H RBC 2.80 L Hgb 7.8 L Hct 23.6 L MCV MCH MCHC RDW 16.6 H Plt Count Lymph % (Auto) [place] % (Auto) 11.3 H Lymph # [place] # 1.4 H Baso # Seg Neutrophils % Seg Neuts % (Manual) Lymphocytes % (Manual) Monocytes % (Manual) Eosinophils % (Manual) Basophils % (Manual) Nucleated RBC % Seg Neutrophils # 8.2 H Seg Neutrophils # Man Lymphocytes # (Manual) Monocytes # (Manual) Eosinophils # (Manual) Basophils # (Manual) PT INR Fibrinogen dRVVT Confirm Interp Factor V Activity POC ABG pH POC ABG pCO2 POC ABG pO2 ABG pO2 ABG HCO3 ABG Base Excess ABG Hemoglobin Oxyhemoglobin Sodium 169 H* D Potassium 5.1 H Chloride 121.5 H Carbon Dioxide BUN 34 H Creatinine 1.3 H D Glucose 133 H POC Glucose 131 H Lactic Acid Calcium 10.3 H Phosphorus Magnesium Direct Bilirubin AST ALT Alkaline Phosphatase Lactate Dehydrogenase Troponin T C-Reactive Protein Total Protein Albumin Prealbumin Triglycerides Cholesterol LDL Cholesterol Direct HDL Cholesterol PTH Intact Urine pH Urine WBC (Auto) Urine Creatinine Urine Total Protein Fluid Total Protein Vancomycin Trough Rheumatoid Factor Complement C4 Miscellaneous Test Crossmatch 11/30/16 11/30/16 11/30/16 05:45 11:10 17:26 WBC RBC Hgb Hct MCV MCH MCHC RDW Plt Count Lymph % (Auto) [place] % (Auto) Lymph # [place] # Baso # Seg Neutrophils % Seg Neuts % (Manual) Lymphocytes % (Manual) Monocytes % (Manual) Eosinophils % (Manual) Basophils % (Manual) Nucleated RBC % Seg Neutrophils # Seg Neutrophils # Man Lymphocytes # (Manual) Monocytes # (Manual) Eosinophils # (Manual) Basophils # (Manual) PT INR Fibrinogen dRVVT Confirm Interp Factor V Activity POC ABG pH POC ABG pCO2 POC ABG pO2 ABG pO2 ABG HCO3 ABG Base Excess ABG Hemoglobin Oxyhemoglobin Sodium Potassium Chloride Carbon Dioxide BUN 45 H Creatinine 1.6 H Glucose 131 H POC Glucose 146 H 134 H Lactic Acid Calcium Phosphorus Magnesium Direct Bilirubin AST ALT Alkaline Phosphatase Lactate Dehydrogenase Troponin T C-Reactive Protein Total Protein Albumin Prealbumin Triglycerides Cholesterol LDL Cholesterol Direct HDL Cholesterol PTH Intact Urine pH Urine WBC (Auto) Urine Creatinine Urine Total Protein Fluid Total Protein Vancomycin Trough Rheumatoid Factor Complement C4 Miscellaneous Test Crossmatch 11/30/16 12/01/16 12/01/16 23:35 00:06 03:35 WBC RBC Hgb Hct MCV MCH MCHC RDW Plt Count Lymph % (Auto) [place] % (Auto) Lymph # [place] # Baso # Seg Neutrophils % Seg Neuts % (Manual) Lymphocytes % (Manual) Monocytes % (Manual) Eosinophils % (Manual) Basophils % (Manual) Nucleated RBC % Seg Neutrophils # Seg Neutrophils # Man Lymphocytes # (Manual) Monocytes # (Manual) Eosinophils # (Manual) Basophils # (Manual) PT INR Fibrinogen dRVVT Confirm Interp Factor V Activity POC ABG pH POC ABG pCO2 POC ABG pO2 ABG pO2 ABG HCO3 ABG Base Excess ABG Hemoglobin 6.9 L Oxyhemoglobin Sodium Potassium Chloride Carbon Dioxide BUN 58 H Creatinine 1.8 H Glucose 146 H POC Glucose 151 H Lactic Acid Calcium Phosphorus Magnesium Direct Bilirubin AST ALT Alkaline Phosphatase Lactate Dehydrogenase Troponin T C-Reactive Protein Total Protein Albumin Prealbumin Triglycerides Cholesterol LDL Cholesterol Direct HDL Cholesterol PTH Intact Urine pH Urine WBC (Auto) Urine Creatinine Urine Total Protein Fluid Total Protein Vancomycin Trough Rheumatoid Factor Complement C4 Miscellaneous Test Crossmatch 12/01/16 12/01/16 12/01/16 03:35 05:47 11:52 WBC 12.3 H RBC 2.82 L Hgb 7.8 L Hct 23.7 L MCV MCH MCHC RDW 16.7 H Plt Count Lymph % (Auto) [place] % (Auto) 9.8 H Lymph # [place] # 1.2 H Baso # Seg Neutrophils % Seg Neuts % (Manual) Lymphocytes % (Manual) Monocytes % (Manual) Eosinophils % (Manual) Basophils % (Manual) Nucleated RBC % Seg Neutrophils # 8.4 H Seg Neutrophils # Man Lymphocytes # (Manual) Monocytes # (Manual) Eosinophils # (Manual) Basophils # (Manual) PT INR Fibrinogen dRVVT Confirm Interp Factor V Activity POC ABG pH POC ABG pCO2 POC ABG pO2 ABG pO2 ABG HCO3 ABG Base Excess ABG Hemoglobin Oxyhemoglobin Sodium Potassium Chloride Carbon Dioxide BUN Creatinine Glucose POC Glucose 152 H 152 H Lactic Acid Calcium Phosphorus Magnesium Direct Bilirubin AST ALT Alkaline Phosphatase Lactate Dehydrogenase Troponin T C-Reactive Protein Total Protein Albumin Prealbumin Triglycerides Cholesterol LDL Cholesterol Direct HDL Cholesterol PTH Intact Urine pH Urine WBC (Auto) Urine Creatinine Urine Total Protein Fluid Total Protein Vancomycin Trough Rheumatoid Factor Complement C4 Miscellaneous Test Crossmatch 12/01/16 12/01/16 12/02/16 17:40 23:41 05:00 WBC RBC Hgb Hct MCV MCH MCHC RDW Plt Count Lymph % (Auto) [place] % (Auto) Lymph # [place] # Baso # Seg Neutrophils % Seg Neuts % (Manual) Lymphocytes % (Manual) Monocytes % (Manual) Eosinophils % (Manual) Basophils % (Manual) Nucleated RBC % Seg Neutrophils # Seg Neutrophils # Man Lymphocytes # (Manual) Monocytes # (Manual) Eosinophils # (Manual) Basophils # (Manual) PT INR Fibrinogen dRVVT Confirm Interp Factor V Activity POC ABG pH POC ABG pCO2 POC ABG pO2 ABG pO2 ABG HCO3 ABG Base Excess ABG Hemoglobin Oxyhemoglobin Sodium Potassium Chloride Carbon Dioxide BUN 45 H Creatinine Glucose 115 H POC Glucose 140 H 144 H Lactic Acid Calcium Phosphorus Magnesium Direct Bilirubin AST ALT Alkaline Phosphatase Lactate Dehydrogenase Troponin T C-Reactive Protein Total Protein Albumin Prealbumin Triglycerides Cholesterol LDL Cholesterol Direct HDL Cholesterol PTH Intact Urine pH Urine WBC (Auto) Urine Creatinine Urine Total Protein Fluid Total Protein Vancomycin Trough Rheumatoid Factor Complement C4 Miscellaneous Test Crossmatch 12/02/16 12/02/16 12/02/16 05:31 11:20 17:38 WBC RBC Hgb Hct MCV MCH MCHC RDW Plt Count Lymph % (Auto) [place] % (Auto) Lymph # [place] # Baso # Seg Neutrophils % Seg Neuts % (Manual) Lymphocytes % (Manual) Monocytes % (Manual) Eosinophils % (Manual) Basophils % (Manual) Nucleated RBC % Seg Neutrophils # Seg Neutrophils # Man Lymphocytes # (Manual) Monocytes # (Manual) Eosinophils # (Manual) Basophils # (Manual) PT INR Fibrinogen dRVVT Confirm Interp Factor V Activity POC ABG pH POC ABG pCO2 POC ABG pO2 ABG pO2 ABG HCO3 ABG Base Excess ABG Hemoglobin Oxyhemoglobin Sodium Potassium Chloride Carbon Dioxide BUN Creatinine Glucose POC Glucose 136 H 177 H 139 H Lactic Acid Calcium Phosphorus Magnesium Direct Bilirubin AST ALT Alkaline Phosphatase Lactate Dehydrogenase Troponin T C-Reactive Protein Total Protein Albumin Prealbumin Triglycerides Cholesterol LDL Cholesterol Direct HDL Cholesterol PTH Intact Urine pH Urine WBC (Auto) Urine Creatinine Urine Total Protein Fluid Total Protein Vancomycin Trough Rheumatoid Factor Complement C4 Miscellaneous Test Crossmatch 12/02/16 12/03/16 12/03/16 23:43 04:00 04:00 WBC 20.4 H RBC 2.74 L Hgb 7.4 L Hct 23.6 L MCV MCH 27 L MCHC RDW 17.1 H Plt Count Lymph % (Auto) [place] % (Auto) Lymph # [place] # Baso # Seg Neutrophils % Seg Neuts % (Manual) 31.0 L Lymphocytes % (Manual) Monocytes % (Manual) Eosinophils % (Manual) Basophils % (Manual) Nucleated RBC % Seg Neutrophils # Seg Neutrophils # Man Lymphocytes # (Manual) Monocytes # (Manual) Eosinophils # (Manual) Basophils # (Manual) PT INR Fibrinogen dRVVT Confirm Interp Factor V Activity POC ABG pH POC ABG pCO2 POC ABG pO2 ABG pO2 ABG HCO3 ABG Base Excess ABG Hemoglobin Oxyhemoglobin Sodium Potassium Chloride Carbon Dioxide BUN 61 H Creatinine 1.6 H Glucose 119 H POC Glucose 158 H Lactic Acid Calcium Phosphorus Magnesium Direct Bilirubin AST ALT Alkaline Phosphatase Lactate Dehydrogenase Troponin T C-Reactive Protein Total Protein Albumin Prealbumin Triglycerides Cholesterol LDL Cholesterol Direct HDL Cholesterol PTH Intact Urine pH Urine WBC (Auto) Urine Creatinine Urine Total Protein Fluid Total Protein Vancomycin Trough Rheumatoid Factor Complement C4 Miscellaneous Test Crossmatch 12/03/16 12/03/16 12/03/16 05:02 12:11 18:16 WBC RBC Hgb Hct MCV MCH MCHC RDW Plt Count Lymph % (Auto) [place] % (Auto) Lymph # [place] # Baso # Seg Neutrophils % Seg Neuts % (Manual) Lymphocytes % (Manual) Monocytes % (Manual) Eosinophils % (Manual) Basophils % (Manual) Nucleated RBC % Seg Neutrophils # Seg Neutrophils # Man Lymphocytes # (Manual) Monocytes # (Manual) Eosinophils # (Manual) Basophils # (Manual) PT INR Fibrinogen dRVVT Confirm Interp Factor V Activity POC ABG pH POC ABG pCO2 POC ABG pO2 ABG pO2 ABG HCO3 ABG Base Excess ABG Hemoglobin Oxyhemoglobin Sodium Potassium Chloride Carbon Dioxide BUN Creatinine Glucose POC Glucose 146 H 157 H 124 H Lactic Acid Calcium Phosphorus Magnesium Direct Bilirubin AST ALT Alkaline Phosphatase Lactate Dehydrogenase Troponin T C-Reactive Protein Total Protein Albumin Prealbumin Triglycerides Cholesterol LDL Cholesterol Direct HDL Cholesterol PTH Intact Urine pH Urine WBC (Auto) Urine Creatinine Urine Total Protein Fluid Total Protein Vancomycin Trough Rheumatoid Factor Complement C4 Miscellaneous Test Crossmatch 12/03/16 12/04/16 12/04/16 23:41 04:00 04:45 WBC RBC Hgb Hct MCV MCH MCHC RDW Plt Count Lymph % (Auto) [place] % (Auto) Lymph # [place] # Baso # Seg Neutrophils % Seg Neuts % (Manual) Lymphocytes % (Manual) Monocytes % (Manual) Eosinophils % (Manual) Basophils % (Manual) Nucleated RBC % Seg Neutrophils # Seg Neutrophils # Man Lymphocytes # (Manual) Monocytes # (Manual) Eosinophils # (Manual) Basophils # (Manual) PT INR Fibrinogen dRVVT Confirm Interp Factor V Activity POC ABG pH POC ABG pCO2 POC ABG pO2 ABG pO2 ABG HCO3 ABG Base Excess ABG Hemoglobin Oxyhemoglobin Sodium Potassium Chloride Carbon Dioxide BUN 76 H Creatinine 1.6 H Glucose POC Glucose 130 H 136 H Lactic Acid Calcium Phosphorus Magnesium Direct Bilirubin AST ALT Alkaline Phosphatase 155 H Lactate Dehydrogenase Troponin T C-Reactive Protein Total Protein 5.5 L Albumin 1.5 L Prealbumin Triglycerides Cholesterol LDL Cholesterol Direct HDL Cholesterol PTH Intact Urine pH Urine WBC (Auto) Urine Creatinine Urine Total Protein Fluid Total Protein Vancomycin Trough Rheumatoid Factor Complement C4 Miscellaneous Test Crossmatch 12/04/16 12/04/16 12/05/16 12:08 17:23 00:10 WBC RBC Hgb Hct MCV MCH MCHC RDW Plt Count Lymph % (Auto) [place] % (Auto) Lymph # [place] # Baso # Seg Neutrophils % Seg Neuts % (Manual) Lymphocytes % (Manual) Monocytes % (Manual) Eosinophils % (Manual) Basophils % (Manual) Nucleated RBC % Seg Neutrophils # Seg Neutrophils # Man Lymphocytes # (Manual) Monocytes # (Manual) Eosinophils # (Manual) Basophils # (Manual) PT INR Fibrinogen dRVVT Confirm Interp Factor V Activity POC ABG pH POC ABG pCO2 POC ABG pO2 ABG pO2 ABG HCO3 ABG Base Excess ABG Hemoglobin Oxyhemoglobin Sodium Potassium Chloride Carbon Dioxide BUN Creatinine Glucose POC Glucose 114 H 129 H 124 H Lactic Acid Calcium Phosphorus Magnesium Direct Bilirubin AST ALT Alkaline Phosphatase Lactate Dehydrogenase Troponin T C-Reactive Protein Total Protein Albumin Prealbumin Triglycerides Cholesterol LDL Cholesterol Direct HDL Cholesterol PTH Intact Urine pH Urine WBC (Auto) Urine Creatinine Urine Total Protein Fluid Total Protein Vancomycin Trough Rheumatoid Factor Complement C4 Miscellaneous Test Crossmatch 12/05/16 12/05/16 12/05/16 05:00 05:00 05:18 WBC RBC Hgb Hct MCV MCH MCHC RDW Plt Count Lymph % (Auto) [place] % (Auto) Lymph # [place] # Baso # Seg Neutrophils % Seg Neuts % (Manual) Lymphocytes % (Manual) Monocytes % (Manual) Eosinophils % (Manual) Basophils % (Manual) Nucleated RBC % Seg Neutrophils # Seg Neutrophils # Man Lymphocytes # (Manual) Monocytes # (Manual) Eosinophils # (Manual) Basophils # (Manual) PT INR Fibrinogen dRVVT Confirm Interp Factor V Activity POC ABG pH POC ABG pCO2 POC ABG pO2 ABG pO2 ABG HCO3 ABG Base Excess ABG Hemoglobin Oxyhemoglobin Sodium Potassium Chloride Carbon Dioxide 21 L BUN 85 H Creatinine 1.9 H Glucose 131 H POC Glucose 154 H Lactic Acid Calcium Phosphorus Magnesium Direct Bilirubin AST ALT Alkaline Phosphatase Lactate Dehydrogenase Troponin T C-Reactive Protein 19.30 H Total Protein Albumin Prealbumin Triglycerides Cholesterol LDL Cholesterol Direct HDL Cholesterol PTH Intact Urine pH Urine WBC (Auto) Urine Creatinine Urine Total Protein Fluid Total Protein Vancomycin Trough Rheumatoid Factor Complement C4 Miscellaneous Test Crossmatch 12/05/16 12/05/16 12/05/16 11:43 17:46 23:25 WBC RBC Hgb Hct MCV MCH MCHC RDW Plt Count Lymph % (Auto) [place] % (Auto) Lymph # [place] # Baso # Seg Neutrophils % Seg Neuts % (Manual) Lymphocytes % (Manual) Monocytes % (Manual) Eosinophils % (Manual) Basophils % (Manual) Nucleated RBC % Seg Neutrophils # Seg Neutrophils # Man Lymphocytes # (Manual) Monocytes # (Manual) Eosinophils # (Manual) Basophils # (Manual) PT INR Fibrinogen dRVVT Confirm Interp Factor V Activity POC ABG pH POC ABG pCO2 POC ABG pO2 ABG pO2 ABG HCO3 ABG Base Excess ABG Hemoglobin Oxyhemoglobin Sodium Potassium Chloride Carbon Dioxide BUN Creatinine Glucose POC Glucose 117 H 113 H 111 H Lactic Acid Calcium Phosphorus Magnesium Direct Bilirubin AST ALT Alkaline Phosphatase Lactate Dehydrogenase Troponin T C-Reactive Protein Total Protein Albumin Prealbumin Triglycerides Cholesterol LDL Cholesterol Direct HDL Cholesterol PTH Intact Urine pH Urine WBC (Auto) Urine Creatinine Urine Total Protein Fluid Total Protein Vancomycin Trough Rheumatoid Factor Complement C4 Miscellaneous Test Crossmatch 12/05/16 12/06/16 12/06/16 Unknown 04:58 06:00 WBC RBC Hgb Hct MCV MCH MCHC RDW Plt Count Lymph % (Auto) [place] % (Auto) Lymph # [place] # Baso # Seg Neutrophils % Seg Neuts % (Manual) Lymphocytes % (Manual) Monocytes % (Manual) Eosinophils % (Manual) Basophils % (Manual) Nucleated RBC % Seg Neutrophils # Seg Neutrophils # Man Lymphocytes # (Manual) Monocytes # (Manual) Eosinophils # (Manual) Basophils # (Manual) PT INR Fibrinogen dRVVT Confirm Interp Factor V Activity POC ABG pH POC ABG pCO2 POC ABG pO2 ABG pO2 75.2 L ABG HCO3 ABG Base Excess -3.4 L ABG Hemoglobin 7.4 L Oxyhemoglobin 94.5 L Sodium Potassium Chloride Carbon Dioxide 20 L BUN 99 H Creatinine 2.1 H Glucose 126 H POC Glucose 145 H Lactic Acid Calcium Phosphorus 4.80 H Magnesium Direct Bilirubin AST ALT Alkaline Phosphatase Lactate Dehydrogenase Troponin T C-Reactive Protein Total Protein Albumin Prealbumin Triglycerides Cholesterol LDL Cholesterol Direct HDL Cholesterol PTH Intact Urine pH Urine WBC (Auto) Urine Creatinine Urine Total Protein Fluid Total Protein Vancomycin Trough Rheumatoid Factor Complement C4 Miscellaneous Test Crossmatch 12/06/16 12/06/16 12/06/16 06:46 11:54 17:55 WBC RBC Hgb 8.3 L Hct 26.4 L MCV MCH MCHC RDW Plt Count Lymph % (Auto) [place] % (Auto) Lymph # [place] # Baso # Seg Neutrophils % Seg Neuts % (Manual) Lymphocytes % (Manual) Monocytes % (Manual) Eosinophils % (Manual) Basophils % (Manual) Nucleated RBC % Seg Neutrophils # Seg Neutrophils # Man Lymphocytes # (Manual) Monocytes # (Manual) Eosinophils # (Manual) Basophils # (Manual) PT INR Fibrinogen dRVVT Confirm Interp Factor V Activity POC ABG pH POC ABG pCO2 POC ABG pO2 ABG pO2 ABG HCO3 ABG Base Excess ABG Hemoglobin Oxyhemoglobin Sodium Potassium Chloride Carbon Dioxide BUN Creatinine Glucose POC Glucose 126 H 157 H Lactic Acid Calcium Phosphorus Magnesium Direct Bilirubin AST ALT Alkaline Phosphatase Lactate Dehydrogenase Troponin T C-Reactive Protein Total Protein Albumin Prealbumin Triglycerides Cholesterol LDL Cholesterol Direct HDL Cholesterol PTH Intact Urine pH Urine WBC (Auto) Urine Creatinine Urine Total Protein Fluid Total Protein Vancomycin Trough Rheumatoid Factor Complement C4 Miscellaneous Test Crossmatch 12/06/16 12/07/16 12/07/16 23:59 05:34 06:30 WBC RBC Hgb Hct MCV MCH MCHC RDW Plt Count Lymph % (Auto) [place] % (Auto) Lymph # [place] # Baso # Seg Neutrophils % Seg Neuts % (Manual) Lymphocytes % (Manual) Monocytes % (Manual) Eosinophils % (Manual) Basophils % (Manual) Nucleated RBC % Seg Neutrophils # Seg Neutrophils # Man Lymphocytes # (Manual) Monocytes # (Manual) Eosinophils # (Manual) Basophils # (Manual) PT INR Fibrinogen dRVVT Confirm Interp Factor V Activity POC ABG pH POC ABG pCO2 POC ABG pO2 ABG pO2 ABG HCO3 ABG Base Excess ABG Hemoglobin Oxyhemoglobin Sodium Potassium Chloride Carbon Dioxide BUN 67 H Creatinine 1.4 H Glucose 126 H POC Glucose 129 H 129 H Lactic Acid Calcium Phosphorus Magnesium Direct Bilirubin AST ALT Alkaline Phosphatase Lactate Dehydrogenase Troponin T C-Reactive Protein Total Protein Albumin Prealbumin Triglycerides Cholesterol LDL Cholesterol Direct HDL Cholesterol PTH Intact Urine pH Urine WBC (Auto) Urine Creatinine Urine Total Protein Fluid Total Protein Vancomycin Trough Rheumatoid Factor Complement C4 Miscellaneous Test Crossmatch 12/07/16 12/07/16 12/07/16 06:30 08:00 09:45 WBC 18.8 H RBC 2.52 L Hgb 6.9 L 6.8 L Hct 21.2 L 21.1 L MCV MCH 27 L MCHC RDW 18.0 H Plt Count Lymph % (Auto) [place] % (Auto) 9.9 H Lymph # [place] # 1.9 H Baso # Seg Neutrophils % 71.8 H Seg Neuts % (Manual) Lymphocytes % (Manual) Monocytes % (Manual) Eosinophils % (Manual) Basophils % (Manual) Nucleated RBC % Seg Neutrophils # 13.5 H Seg Neutrophils # Man Lymphocytes # (Manual) Monocytes # (Manual) Eosinophils # (Manual) Basophils # (Manual) PT INR Fibrinogen dRVVT Confirm Interp Factor V Activity POC ABG pH POC ABG pCO2 POC ABG pO2 ABG pO2 ABG HCO3 ABG Base Excess ABG Hemoglobin Oxyhemoglobin Sodium Potassium Chloride Carbon Dioxide BUN Creatinine Glucose POC Glucose Lactic Acid Calcium Phosphorus Magnesium Direct Bilirubin AST ALT Alkaline Phosphatase Lactate Dehydrogenase Troponin T C-Reactive Protein Total Protein Albumin Prealbumin Triglycerides Cholesterol LDL Cholesterol Direct HDL Cholesterol PTH Intact Urine pH Urine WBC (Auto) Urine Creatinine Urine Total Protein Fluid Total Protein Vancomycin Trough Rheumatoid Factor Complement C4 Miscellaneous Test Crossmatch See Detail 12/07/16 12/07/16 12/07/16 11:44 18:19 23:59 WBC RBC Hgb Hct MCV MCH MCHC RDW Plt Count Lymph % (Auto) [place] % (Auto) Lymph # [place] # Baso # Seg Neutrophils % Seg Neuts % (Manual) Lymphocytes % (Manual) Monocytes % (Manual) Eosinophils % (Manual) Basophils % (Manual) Nucleated RBC % Seg Neutrophils # Seg Neutrophils # Man Lymphocytes # (Manual) Monocytes # (Manual) Eosinophils # (Manual) Basophils # (Manual) PT INR Fibrinogen dRVVT Confirm Interp Factor V Activity POC ABG pH POC ABG pCO2 POC ABG pO2 ABG pO2 ABG HCO3 ABG Base Excess ABG Hemoglobin Oxyhemoglobin Sodium Potassium Chloride Carbon Dioxide BUN Creatinine Glucose POC Glucose 137 H 138 H 133 H Lactic Acid Calcium Phosphorus Magnesium Direct Bilirubin AST ALT Alkaline Phosphatase Lactate Dehydrogenase Troponin T C-Reactive Protein Total Protein Albumin Prealbumin Triglycerides Cholesterol LDL Cholesterol Direct HDL Cholesterol PTH Intact Urine pH Urine WBC (Auto) Urine Creatinine Urine Total Protein Fluid Total Protein Vancomycin Trough Rheumatoid Factor Complement C4 Miscellaneous Test Crossmatch 12/08/16 12/08/16 12/08/16 05:25 05:30 05:30 WBC 23.8 H RBC 2.88 L Hgb 8.1 L Hct 24.3 L MCV MCH MCHC RDW 16.7 H Plt Count Lymph % (Auto) [place] % (Auto) Lymph # [place] # Baso # Seg Neutrophils % Seg Neuts % (Manual) 76.0 H Lymphocytes % (Manual) 9.0 L Monocytes % (Manual) 9.0 H Eosinophils % (Manual) Basophils % (Manual) Nucleated RBC % Seg Neutrophils # Seg Neutrophils # Man 18.1 H Lymphocytes # (Manual) Monocytes # (Manual) 2.1 H Eosinophils # (Manual) Basophils # (Manual) PT INR Fibrinogen dRVVT Confirm Interp Factor V Activity POC ABG pH POC ABG pCO2 POC ABG pO2 ABG pO2 ABG HCO3 ABG Base Excess ABG Hemoglobin Oxyhemoglobin Sodium Potassium Chloride Carbon Dioxide 21 L BUN 76 H Creatinine 1.6 H Glucose 133 H POC Glucose 177 H Lactic Acid Calcium Phosphorus Magnesium Direct Bilirubin AST ALT Alkaline Phosphatase Lactate Dehydrogenase Troponin T C-Reactive Protein Total Protein Albumin Prealbumin Triglycerides Cholesterol LDL Cholesterol Direct HDL Cholesterol PTH Intact Urine pH Urine WBC (Auto) Urine Creatinine Urine Total Protein Fluid Total Protein Vancomycin Trough Rheumatoid Factor Complement C4 Miscellaneous Test Crossmatch 12/08/16 12/08/16 12/09/16 11:45 18:00 00:00 WBC RBC Hgb Hct MCV MCH MCHC RDW Plt Count Lymph % (Auto) [place] % (Auto) Lymph # [place] # Baso # Seg Neutrophils % Seg Neuts % (Manual) Lymphocytes % (Manual) Monocytes % (Manual) Eosinophils % (Manual) Basophils % (Manual) Nucleated RBC % Seg Neutrophils # Seg Neutrophils # Man Lymphocytes # (Manual) Monocytes # (Manual) Eosinophils # (Manual) Basophils # (Manual) PT INR Fibrinogen dRVVT Confirm Interp Factor V Activity POC ABG pH POC ABG pCO2 POC ABG pO2 ABG pO2 ABG HCO3 ABG Base Excess ABG Hemoglobin Oxyhemoglobin Sodium Potassium Chloride Carbon Dioxide BUN Creatinine Glucose POC Glucose 163 H 123 H 137 H Lactic Acid Calcium Phosphorus Magnesium Direct Bilirubin AST ALT Alkaline Phosphatase Lactate Dehydrogenase Troponin T C-Reactive Protein Total Protein Albumin Prealbumin Triglycerides Cholesterol LDL Cholesterol Direct HDL Cholesterol PTH Intact Urine pH Urine WBC (Auto) Urine Creatinine Urine Total Protein Fluid Total Protein Vancomycin Trough Rheumatoid Factor Complement C4 Miscellaneous Test Crossmatch 12/09/16 12/09/16 12/09/16 05:34 06:00 06:00 WBC 15.5 H RBC 2.87 L Hgb 8.0 L Hct 24.2 L MCV MCH MCHC RDW 17.2 H Plt Count Lymph % (Auto) [place] % (Auto) 11.6 H Lymph # [place] # 1.8 H Baso # Seg Neutrophils % 70.8 H Seg Neuts % (Manual) Lymphocytes % (Manual) Monocytes % (Manual) Eosinophils % (Manual) Basophils % (Manual) Nucleated RBC % Seg Neutrophils # 11.0 H Seg Neutrophils # Man Lymphocytes # (Manual) Monocytes # (Manual) Eosinophils # (Manual) Basophils # (Manual) PT INR Fibrinogen dRVVT Confirm Interp Factor V Activity POC ABG pH POC ABG pCO2 POC ABG pO2 ABG pO2 ABG HCO3 ABG Base Excess ABG Hemoglobin Oxyhemoglobin Sodium Potassium Chloride Carbon Dioxide BUN 51 H Creatinine Glucose 117 H POC Glucose 136 H Lactic Acid Calcium Phosphorus Magnesium Direct Bilirubin AST ALT Alkaline Phosphatase Lactate Dehydrogenase Troponin T C-Reactive Protein Total Protein Albumin Prealbumin Triglycerides Cholesterol LDL Cholesterol Direct HDL Cholesterol PTH Intact Urine pH Urine WBC (Auto) Urine Creatinine Urine Total Protein Fluid Total Protein Vancomycin Trough Rheumatoid Factor Complement C4 Miscellaneous Test Crossmatch 12/09/16 12/09/16 12/09/16 12:29 17:52 23:10 WBC RBC Hgb Hct MCV MCH MCHC RDW Plt Count Lymph % (Auto) [place] % (Auto) Lymph # [place] # Baso # Seg Neutrophils % Seg Neuts % (Manual) Lymphocytes % (Manual) Monocytes % (Manual) Eosinophils % (Manual) Basophils % (Manual) Nucleated RBC % Seg Neutrophils # Seg Neutrophils # Man Lymphocytes # (Manual) Monocytes # (Manual) Eosinophils # (Manual) Basophils # (Manual) PT INR Fibrinogen dRVVT Confirm Interp Factor V Activity POC ABG pH POC ABG pCO2 POC ABG pO2 ABG pO2 ABG HCO3 ABG Base Excess ABG Hemoglobin Oxyhemoglobin Sodium Potassium Chloride Carbon Dioxide BUN Creatinine Glucose POC Glucose 139 H 140 H 129 H Lactic Acid Calcium Phosphorus Magnesium Direct Bilirubin AST ALT Alkaline Phosphatase Lactate Dehydrogenase Troponin T C-Reactive Protein Total Protein Albumin Prealbumin Triglycerides Cholesterol LDL Cholesterol Direct HDL Cholesterol PTH Intact Urine pH Urine WBC (Auto) Urine Creatinine Urine Total Protein Fluid Total Protein Vancomycin Trough Rheumatoid Factor Complement C4 Miscellaneous Test Crossmatch 12/10/16 12/10/16 12/10/16 05:00 05:00 06:54 WBC 15.7 H RBC 2.87 L Hgb 8.2 L Hct 24.4 L MCV MCH MCHC RDW 17.2 H Plt Count Lymph % (Auto) [place] % (Auto) 8.3 H Lymph # [place] # 1.3 H Baso # Seg Neutrophils % 72.8 H Seg Neuts % (Manual) Lymphocytes % (Manual) Monocytes % (Manual) Eosinophils % (Manual) Basophils % (Manual) Nucleated RBC % Seg Neutrophils # 11.4 H Seg Neutrophils # Man Lymphocytes # (Manual) Monocytes # (Manual) Eosinophils # (Manual) Basophils # (Manual) PT INR Fibrinogen dRVVT Confirm Interp Factor V Activity POC ABG pH POC ABG pCO2 POC ABG pO2 ABG pO2 ABG HCO3 ABG Base Excess ABG Hemoglobin Oxyhemoglobin Sodium Potassium Chloride Carbon Dioxide BUN 64 H Creatinine 1.4 H Glucose 134 H POC Glucose 154 H Lactic Acid Calcium Phosphorus Magnesium Direct Bilirubin AST ALT Alkaline Phosphatase Lactate Dehydrogenase Troponin T C-Reactive Protein Total Protein Albumin Prealbumin Triglycerides Cholesterol LDL Cholesterol Direct HDL Cholesterol PTH Intact Urine pH Urine WBC (Auto) Urine Creatinine Urine Total Protein Fluid Total Protein Vancomycin Trough Rheumatoid Factor Complement C4 Miscellaneous Test Crossmatch 12/10/16 12/10/16 12/10/16 11:58 17:29 23:52 WBC RBC Hgb Hct MCV MCH MCHC RDW Plt Count Lymph % (Auto) [place] % (Auto) Lymph # [place] # Baso # Seg Neutrophils % Seg Neuts % (Manual) Lymphocytes % (Manual) Monocytes % (Manual) Eosinophils % (Manual) Basophils % (Manual) Nucleated RBC % Seg Neutrophils # Seg Neutrophils # Man Lymphocytes # (Manual) Monocytes # (Manual) Eosinophils # (Manual) Basophils # (Manual) PT INR Fibrinogen dRVVT Confirm Interp Factor V Activity POC ABG pH POC ABG pCO2 POC ABG pO2 ABG pO2 ABG HCO3 ABG Base Excess ABG Hemoglobin Oxyhemoglobin Sodium Potassium Chloride Carbon Dioxide BUN Creatinine Glucose POC Glucose 144 H 163 H 125 H Lactic Acid Calcium Phosphorus Magnesium Direct Bilirubin AST ALT Alkaline Phosphatase Lactate Dehydrogenase Troponin T C-Reactive Protein Total Protein Albumin Prealbumin Triglycerides Cholesterol LDL Cholesterol Direct HDL Cholesterol PTH Intact Urine pH Urine WBC (Auto) Urine Creatinine Urine Total Protein Fluid Total Protein Vancomycin Trough Rheumatoid Factor Complement C4 Miscellaneous Test Crossmatch 12/11/16 12/11/16 12/11/16 05:38 06:30 06:30 WBC 14.4 H RBC 2.76 L Hgb 7.7 L Hct 23.4 L MCV MCH MCHC RDW 17.2 H Plt Count Lymph % (Auto) [place] % (Auto) 8.8 H Lymph # [place] # 1.3 H Baso # Seg Neutrophils % 72.5 H Seg Neuts % (Manual) Lymphocytes % (Manual) Monocytes % (Manual) Eosinophils % (Manual) Basophils % (Manual) Nucleated RBC % Seg Neutrophils # 10.5 H Seg Neutrophils # Man Lymphocytes # (Manual) Monocytes # (Manual) Eosinophils # (Manual) Basophils # (Manual) PT INR Fibrinogen dRVVT Confirm Interp Factor V Activity POC ABG pH POC ABG pCO2 POC ABG pO2 ABG pO2 ABG HCO3 ABG Base Excess ABG Hemoglobin Oxyhemoglobin Sodium Potassium Chloride Carbon Dioxide BUN 43 H Creatinine Glucose 124 H POC Glucose 141 H Lactic Acid Calcium 8.3 L Phosphorus Magnesium 1.60 L Direct Bilirubin AST ALT Alkaline Phosphatase Lactate Dehydrogenase Troponin T C-Reactive Protein Total Protein Albumin Prealbumin Triglycerides Cholesterol LDL Cholesterol Direct HDL Cholesterol PTH Intact Urine pH Urine WBC (Auto) Urine Creatinine Urine Total Protein Fluid Total Protein Vancomycin Trough Rheumatoid Factor Complement C4 Miscellaneous Test Crossmatch 12/11/16 12/11/16 12/11/16 11:15 17:59 23:48 WBC RBC Hgb Hct MCV MCH MCHC RDW Plt Count Lymph % (Auto) [place] % (Auto) Lymph # [place] # Baso # Seg Neutrophils % Seg Neuts % (Manual) Lymphocytes % (Manual) Monocytes % (Manual) Eosinophils % (Manual) Basophils % (Manual) Nucleated RBC % Seg Neutrophils # Seg Neutrophils # Man Lymphocytes # (Manual) Monocytes # (Manual) Eosinophils # (Manual) Basophils # (Manual) PT INR Fibrinogen dRVVT Confirm Interp Factor V Activity POC ABG pH POC ABG pCO2 POC ABG pO2 ABG pO2 ABG HCO3 ABG Base Excess ABG Hemoglobin Oxyhemoglobin Sodium Potassium Chloride Carbon Dioxide BUN Creatinine Glucose POC Glucose 188 H 106 H 119 H Lactic Acid Calcium Phosphorus Magnesium Direct Bilirubin AST ALT Alkaline Phosphatase Lactate Dehydrogenase Troponin T C-Reactive Protein Total Protein Albumin Prealbumin Triglycerides Cholesterol LDL Cholesterol Direct HDL Cholesterol PTH Intact Urine pH Urine WBC (Auto) Urine Creatinine Urine Total Protein Fluid Total Protein Vancomycin Trough Rheumatoid Factor Complement C4 Miscellaneous Test Crossmatch 12/12/16 12/12/16 12/12/16 05:00 06:01 12:20 WBC 16.7 H RBC 2.87 L Hgb 8.0 L Hct 24.2 L MCV MCH MCHC RDW 17.6 H Plt Count Lymph % (Auto) [place] % (Auto) Lymph # [place] # 1.2 H Baso # Seg Neutrophils % 75.3 H Seg Neuts % (Manual) Lymphocytes % (Manual) Monocytes % (Manual) Eosinophils % (Manual) Basophils % (Manual) Nucleated RBC % Seg Neutrophils # 12.6 H Seg Neutrophils # Man Lymphocytes # (Manual) Monocytes # (Manual) Eosinophils # (Manual) Basophils # (Manual) PT INR Fibrinogen dRVVT Confirm Interp Factor V Activity POC ABG pH POC ABG pCO2 POC ABG pO2 ABG pO2 ABG HCO3 ABG Base Excess ABG Hemoglobin Oxyhemoglobin Sodium Potassium Chloride Carbon Dioxide BUN Creatinine Glucose POC Glucose 134 H 149 H Lactic Acid Calcium Phosphorus Magnesium Direct Bilirubin AST ALT Alkaline Phosphatase Lactate Dehydrogenase Troponin T C-Reactive Protein Total Protein Albumin Prealbumin Triglycerides Cholesterol LDL Cholesterol Direct HDL Cholesterol PTH Intact Urine pH Urine WBC (Auto) Urine Creatinine Urine Total Protein Fluid Total Protein Vancomycin Trough Rheumatoid Factor Complement C4 Miscellaneous Test Crossmatch 12/12/16 12/12/16 12/12/16 17:38 23:01 Unknown WBC RBC Hgb Hct MCV MCH MCHC RDW Plt Count Lymph % (Auto) [place] % (Auto) Lymph # [place] # Baso # Seg Neutrophils % Seg Neuts % (Manual) Lymphocytes % (Manual) Monocytes % (Manual) Eosinophils % (Manual) Basophils % (Manual) Nucleated RBC % Seg Neutrophils # Seg Neutrophils # Man Lymphocytes # (Manual) Monocytes # (Manual) Eosinophils # (Manual) Basophils # (Manual) PT INR Fibrinogen dRVVT Confirm Interp Factor V Activity POC ABG pH POC ABG pCO2 POC ABG pO2 ABG pO2 ABG HCO3 ABG Base Excess ABG Hemoglobin Oxyhemoglobin Sodium Potassium Chloride Carbon Dioxide BUN 60 H Creatinine 1.3 H Glucose 126 H POC Glucose 127 H 144 H Lactic Acid Calcium Phosphorus Magnesium Direct Bilirubin AST ALT Alkaline Phosphatase Lactate Dehydrogenase Troponin T C-Reactive Protein Total Protein Albumin Prealbumin Triglycerides Cholesterol LDL Cholesterol Direct HDL Cholesterol PTH Intact Urine pH Urine WBC (Auto) Urine Creatinine Urine Total Protein Fluid Total Protein Vancomycin Trough Rheumatoid Factor Complement C4 Miscellaneous Test Crossmatch 12/13/16 12/13/16 12/13/16 04:00 04:00 05:19 WBC 18.7 H RBC 2.89 L Hgb 8.3 L Hct 24.6 L MCV MCH MCHC RDW 17.5 H Plt Count Lymph % (Auto) [place] % (Auto) Lymph # [place] # 1.3 H Baso # Seg Neutrophils % 71.5 H Seg Neuts % (Manual) Lymphocytes % (Manual) Monocytes % (Manual) Eosinophils % (Manual) Basophils % (Manual) Nucleated RBC % Seg Neutrophils # 13.4 H Seg Neutrophils # Man Lymphocytes # (Manual) Monocytes # (Manual) Eosinophils # (Manual) Basophils # (Manual) PT INR Fibrinogen dRVVT Confirm Interp Factor V Activity POC ABG pH POC ABG pCO2 POC ABG pO2 ABG pO2 ABG HCO3 ABG Base Excess ABG Hemoglobin Oxyhemoglobin Sodium Potassium Chloride Carbon Dioxide BUN 73 H Creatinine 1.5 H Glucose 141 H POC Glucose 171 H Lactic Acid Calcium Phosphorus Magnesium Direct Bilirubin AST ALT Alkaline Phosphatase Lactate Dehydrogenase Troponin T C-Reactive Protein Total Protein Albumin Prealbumin Triglycerides Cholesterol LDL Cholesterol Direct HDL Cholesterol PTH Intact Urine pH Urine WBC (Auto) Urine Creatinine Urine Total Protein Fluid Total Protein Vancomycin Trough Rheumatoid Factor Complement C4 Miscellaneous Test Crossmatch 12/13/16 12/13/16 12/14/16 12:28 16:48 00:01 WBC RBC Hgb Hct MCV MCH MCHC RDW Plt Count Lymph % (Auto) [place] % (Auto) Lymph # [place] # Baso # Seg Neutrophils % Seg Neuts % (Manual) Lymphocytes % (Manual) Monocytes % (Manual) Eosinophils % (Manual) Basophils % (Manual) Nucleated RBC % Seg Neutrophils # Seg Neutrophils # Man Lymphocytes # (Manual) Monocytes # (Manual) Eosinophils # (Manual) Basophils # (Manual) PT INR Fibrinogen dRVVT Confirm Interp Factor V Activity POC ABG pH POC ABG pCO2 POC ABG pO2 ABG pO2 ABG HCO3 ABG Base Excess ABG Hemoglobin Oxyhemoglobin Sodium Potassium Chloride Carbon Dioxide BUN Creatinine Glucose POC Glucose 206 H 173 H 139 H Lactic Acid Calcium Phosphorus Magnesium Direct Bilirubin AST ALT Alkaline Phosphatase Lactate Dehydrogenase Troponin T C-Reactive Protein Total Protein Albumin Prealbumin Triglycerides Cholesterol LDL Cholesterol Direct HDL Cholesterol PTH Intact Urine pH Urine WBC (Auto) Urine Creatinine Urine Total Protein Fluid Total Protein Vancomycin Trough Rheumatoid Factor Complement C4 Miscellaneous Test Crossmatch 12/14/16 12/14/16 12/14/16 05:16 06:10 11:17 WBC RBC Hgb Hct MCV MCH MCHC RDW Plt Count Lymph % (Auto) [place] % (Auto) Lymph # [place] # Baso # Seg Neutrophils % Seg Neuts % (Manual) Lymphocytes % (Manual) Monocytes % (Manual) Eosinophils % (Manual) Basophils % (Manual) Nucleated RBC % Seg Neutrophils # Seg Neutrophils # Man Lymphocytes # (Manual) Monocytes # (Manual) Eosinophils # (Manual) Basophils # (Manual) PT INR Fibrinogen dRVVT Confirm Interp Factor V Activity POC ABG pH POC ABG pCO2 POC ABG pO2 ABG pO2 ABG HCO3 ABG Base Excess ABG Hemoglobin Oxyhemoglobin Sodium Potassium Chloride Carbon Dioxide BUN 57 H Creatinine 1.4 H Glucose 135 H POC Glucose 158 H 137 H Lactic Acid Calcium Phosphorus Magnesium Direct Bilirubin AST ALT Alkaline Phosphatase Lactate Dehydrogenase Troponin T C-Reactive Protein Total Protein Albumin Prealbumin Triglycerides Cholesterol LDL Cholesterol Direct HDL Cholesterol PTH Intact Urine pH Urine WBC (Auto) Urine Creatinine Urine Total Protein Fluid Total Protein Vancomycin Trough Rheumatoid Factor Complement C4 Miscellaneous Test Crossmatch 12/14/16 12/14/16 12/15/16 17:52 23:27 04:00 WBC RBC Hgb Hct MCV MCH MCHC RDW Plt Count Lymph % (Auto) [place] % (Auto) Lymph # [place] # Baso # Seg Neutrophils % Seg Neuts % (Manual) Lymphocytes % (Manual) Monocytes % (Manual) Eosinophils % (Manual) Basophils % (Manual) Nucleated RBC % Seg Neutrophils # Seg Neutrophils # Man Lymphocytes # (Manual) Monocytes # (Manual) Eosinophils # (Manual) Basophils # (Manual) PT INR Fibrinogen dRVVT Confirm Interp Factor V Activity POC ABG pH POC ABG pCO2 POC ABG pO2 ABG pO2 ABG HCO3 ABG Base Excess ABG Hemoglobin Oxyhemoglobin Sodium Potassium Chloride 97.9 L Carbon Dioxide BUN 75 H Creatinine 1.6 H Glucose 122 H POC Glucose 149 H 163 H Lactic Acid Calcium Phosphorus 5.20 H Magnesium Direct Bilirubin AST ALT Alkaline Phosphatase Lactate Dehydrogenase Troponin T C-Reactive Protein Total Protein Albumin Prealbumin Triglycerides Cholesterol LDL Cholesterol Direct HDL Cholesterol PTH Intact Urine pH Urine WBC (Auto) Urine Creatinine Urine Total Protein Fluid Total Protein Vancomycin Trough Rheumatoid Factor Complement C4 Miscellaneous Test Crossmatch 12/15/16 12/15/16 12/15/16 05:50 11:24 17:01 WBC RBC Hgb Hct MCV MCH MCHC RDW Plt Count Lymph % (Auto) [place] % (Auto) Lymph # [place] # Baso # Seg Neutrophils % Seg Neuts % (Manual) Lymphocytes % (Manual) Monocytes % (Manual) Eosinophils % (Manual) Basophils % (Manual) Nucleated RBC % Seg Neutrophils # Seg Neutrophils # Man Lymphocytes # (Manual) Monocytes # (Manual) Eosinophils # (Manual) Basophils # (Manual) PT INR Fibrinogen dRVVT Confirm Interp Factor V Activity POC ABG pH POC ABG pCO2 POC ABG pO2 ABG pO2 ABG HCO3 ABG Base Excess ABG Hemoglobin Oxyhemoglobin Sodium Potassium Chloride Carbon Dioxide BUN Creatinine Glucose POC Glucose 150 H 146 H 167 H Lactic Acid Calcium Phosphorus Magnesium Direct Bilirubin AST ALT Alkaline Phosphatase Lactate Dehydrogenase Troponin T C-Reactive Protein Total Protein Albumin Prealbumin Triglycerides Cholesterol LDL Cholesterol Direct HDL Cholesterol PTH Intact Urine pH Urine WBC (Auto) Urine Creatinine Urine Total Protein Fluid Total Protein Vancomycin Trough Rheumatoid Factor Complement C4 Miscellaneous Test Crossmatch 12/15/16 12/16/16 12/16/16 23:34 05:25 11:24 WBC RBC Hgb Hct MCV MCH MCHC RDW Plt Count Lymph % (Auto) [place] % (Auto) Lymph # [place] # Baso # Seg Neutrophils % Seg Neuts % (Manual) Lymphocytes % (Manual) Monocytes % (Manual) Eosinophils % (Manual) Basophils % (Manual) Nucleated RBC % Seg Neutrophils # Seg Neutrophils # Man Lymphocytes # (Manual) Monocytes # (Manual) Eosinophils # (Manual) Basophils # (Manual) PT INR Fibrinogen dRVVT Confirm Interp Factor V Activity POC ABG pH POC ABG pCO2 POC ABG pO2 ABG pO2 ABG HCO3 ABG Base Excess ABG Hemoglobin Oxyhemoglobin Sodium Potassium Chloride Carbon Dioxide BUN Creatinine Glucose POC Glucose 127 H 139 H 165 H Lactic Acid Calcium Phosphorus Magnesium Direct Bilirubin AST ALT Alkaline Phosphatase Lactate Dehydrogenase Troponin T C-Reactive Protein Total Protein Albumin Prealbumin Triglycerides Cholesterol LDL Cholesterol Direct HDL Cholesterol PTH Intact Urine pH Urine WBC (Auto) Urine Creatinine Urine Total Protein Fluid Total Protein Vancomycin Trough Rheumatoid Factor Complement C4 Miscellaneous Test Crossmatch 12/16/16 12/16/16 12/16/16 15:30 16:25 17:31 WBC 17.8 H RBC 2.38 L Hgb 6.4 L Hct 20.3 L MCV MCH 27 L MCHC RDW 17.4 H Plt Count Lymph % (Auto) [place] % (Auto) Lymph # [place] # Baso # Seg Neutrophils % Seg Neuts % (Manual) Lymphocytes % (Manual) Monocytes % (Manual) 10.0 H Eosinophils % (Manual) Basophils % (Manual) Nucleated RBC % Seg Neutrophils # Seg Neutrophils # Man 8.5 H Lymphocytes # (Manual) Monocytes # (Manual) 1.8 H Eosinophils # (Manual) Basophils # (Manual) PT INR Fibrinogen dRVVT Confirm Interp Factor V Activity POC ABG pH POC ABG pCO2 POC ABG pO2 ABG pO2 ABG HCO3 ABG Base Excess ABG Hemoglobin Oxyhemoglobin Sodium Potassium Chloride Carbon Dioxide BUN Creatinine Glucose POC Glucose 176 H Lactic Acid Calcium Phosphorus Magnesium Direct Bilirubin AST ALT Alkaline Phosphatase Lactate Dehydrogenase Troponin T C-Reactive Protein Total Protein Albumin Prealbumin Triglycerides Cholesterol LDL Cholesterol Direct HDL Cholesterol PTH Intact Urine pH Urine WBC (Auto) Urine Creatinine Urine Total Protein Fluid Total Protein Vancomycin Trough Rheumatoid Factor Complement C4 Miscellaneous Test Crossmatch See Detail 12/17/16 12/17/16 12/17/16 00:14 04:00 05:00 WBC 20.0 H RBC 2.99 L Hgb 8.5 L Hct 25.7 L MCV MCH MCHC RDW 17.2 H Plt Count Lymph % (Auto) [place] % (Auto) Lymph # [place] # Baso # Seg Neutrophils % Seg Neuts % (Manual) Lymphocytes % (Manual) Monocytes % (Manual) Eosinophils % (Manual) Basophils % (Manual) Nucleated RBC % Seg Neutrophils # Seg Neutrophils # Man Lymphocytes # (Manual) Monocytes # (Manual) Eosinophils # (Manual) Basophils # (Manual) PT INR Fibrinogen dRVVT Confirm Interp Factor V Activity POC ABG pH POC ABG pCO2 POC ABG pO2 ABG pO2 ABG HCO3 ABG Base Excess ABG Hemoglobin Oxyhemoglobin Sodium Potassium Chloride 97.7 L Carbon Dioxide BUN 73 H Creatinine 1.7 H Glucose 136 H POC Glucose 148 H Lactic Acid Calcium Phosphorus 2.20 L Magnesium 2.70 H Direct Bilirubin AST ALT Alkaline Phosphatase Lactate Dehydrogenase Troponin T C-Reactive Protein Total Protein Albumin Prealbumin Triglycerides Cholesterol LDL Cholesterol Direct HDL Cholesterol PTH Intact Urine pH Urine WBC (Auto) Urine Creatinine Urine Total Protein Fluid Total Protein Vancomycin Trough Rheumatoid Factor Complement C4 Miscellaneous Test Crossmatch 12/17/16 12/17/16 12/17/16 05:39 12:50 16:32 WBC RBC Hgb Hct MCV MCH MCHC RDW Plt Count Lymph % (Auto) [place] % (Auto) Lymph # [place] # Baso # Seg Neutrophils % Seg Neuts % (Manual) Lymphocytes % (Manual) Monocytes % (Manual) Eosinophils % (Manual) Basophils % (Manual) Nucleated RBC % Seg Neutrophils # Seg Neutrophils # Man Lymphocytes # (Manual) Monocytes # (Manual) Eosinophils # (Manual) Basophils # (Manual) PT INR Fibrinogen dRVVT Confirm Interp Factor V Activity POC ABG pH POC ABG pCO2 POC ABG pO2 ABG pO2 ABG HCO3 ABG Base Excess ABG Hemoglobin Oxyhemoglobin Sodium Potassium Chloride Carbon Dioxide BUN Creatinine Glucose POC Glucose 162 H 146 H 169 H Lactic Acid Calcium Phosphorus Magnesium Direct Bilirubin AST ALT Alkaline Phosphatase Lactate Dehydrogenase Troponin T C-Reactive Protein Total Protein Albumin Prealbumin Triglycerides Cholesterol LDL Cholesterol Direct HDL Cholesterol PTH Intact Urine pH Urine WBC (Auto) Urine Creatinine Urine Total Protein Fluid Total Protein Vancomycin Trough Rheumatoid Factor Complement C4 Miscellaneous Test Crossmatch 12/17/16 12/18/16 12/18/16 23:57 05:00 05:32 WBC RBC Hgb Hct MCV MCH MCHC RDW Plt Count Lymph % (Auto) [place] % (Auto) Lymph # [place] # Baso # Seg Neutrophils % Seg Neuts % (Manual) Lymphocytes % (Manual) Monocytes % (Manual) Eosinophils % (Manual) Basophils % (Manual) Nucleated RBC % Seg Neutrophils # Seg Neutrophils # Man Lymphocytes # (Manual) Monocytes # (Manual) Eosinophils # (Manual) Basophils # (Manual) PT INR Fibrinogen dRVVT Confirm Interp Factor V Activity POC ABG pH POC ABG pCO2 POC ABG pO2 ABG pO2 ABG HCO3 ABG Base Excess ABG Hemoglobin Oxyhemoglobin Sodium Potassium Chloride 97.0 L Carbon Dioxide BUN 63 H Creatinine 1.4 H Glucose 174 H POC Glucose 145 H 201 H Lactic Acid Calcium Phosphorus 1.70 L D Magnesium Direct Bilirubin AST ALT Alkaline Phosphatase 257 H Lactate Dehydrogenase Troponin T C-Reactive Protein Total Protein 5.9 L Albumin 1.8 L Prealbumin Triglycerides Cholesterol LDL Cholesterol Direct HDL Cholesterol PTH Intact Urine pH Urine WBC (Auto) Urine Creatinine Urine Total Protein Fluid Total Protein Vancomycin Trough Rheumatoid Factor Complement C4 Miscellaneous Test Crossmatch 12/18/16 12/18/16 12/18/16 11:43 16:52 23:52 WBC RBC Hgb Hct MCV MCH MCHC RDW Plt Count Lymph % (Auto) [place] % (Auto) Lymph # [place] # Baso # Seg Neutrophils % Seg Neuts % (Manual) Lymphocytes % (Manual) Monocytes % (Manual) Eosinophils % (Manual) Basophils % (Manual) Nucleated RBC % Seg Neutrophils # Seg Neutrophils # Man Lymphocytes # (Manual) Monocytes # (Manual) Eosinophils # (Manual) Basophils # (Manual) PT INR Fibrinogen dRVVT Confirm Interp Factor V Activity POC ABG pH POC ABG pCO2 POC ABG pO2 ABG pO2 ABG HCO3 ABG Base Excess ABG Hemoglobin Oxyhemoglobin Sodium Potassium Chloride Carbon Dioxide BUN Creatinine Glucose POC Glucose 177 H 110 H 162 H Lactic Acid Calcium Phosphorus Magnesium Direct Bilirubin AST ALT Alkaline Phosphatase Lactate Dehydrogenase Troponin T C-Reactive Protein Total Protein Albumin Prealbumin Triglycerides Cholesterol LDL Cholesterol Direct HDL Cholesterol PTH Intact Urine pH Urine WBC (Auto) Urine Creatinine Urine Total Protein Fluid Total Protein Vancomycin Trough Rheumatoid Factor Complement C4 Miscellaneous Test Crossmatch 12/19/16 12/19/16 12/19/16 05:02 05:24 09:30 WBC 20.1 H RBC 2.73 L Hgb 7.6 L Hct 23.6 L MCV MCH MCHC RDW 17.6 H Plt Count Lymph % (Auto) [place] % (Auto) Lymph # [place] # Baso # Seg Neutrophils % Seg Neuts % (Manual) Lymphocytes % (Manual) 13.0 L Monocytes % (Manual) Eosinophils % (Manual) Basophils % (Manual) Nucleated RBC % 1.0 H Seg Neutrophils # Seg Neutrophils # Man 12.9 H Lymphocytes # (Manual) Monocytes # (Manual) 1.4 H Eosinophils # (Manual) Basophils # (Manual) 0.2 H PT INR Fibrinogen dRVVT Confirm Interp Factor V Activity POC ABG pH POC ABG pCO2 POC ABG pO2 ABG pO2 ABG HCO3 ABG Base Excess ABG Hemoglobin Oxyhemoglobin Sodium Potassium Chloride 97.8 L Carbon Dioxide BUN 84 H Creatinine 1.6 H Glucose 133 H POC Glucose 134 H Lactic Acid Calcium Phosphorus Magnesium Direct Bilirubin AST ALT Alkaline Phosphatase Lactate Dehydrogenase Troponin T C-Reactive Protein Total Protein Albumin Prealbumin Triglycerides Cholesterol LDL Cholesterol Direct HDL Cholesterol PTH Intact Urine pH Urine WBC (Auto) Urine Creatinine Urine Total Protein Fluid Total Protein Vancomycin Trough Rheumatoid Factor Complement C4 Miscellaneous Test Crossmatch 12/19/16 12/19/16 12/19/16 09:36 11:12 18:29 WBC RBC Hgb Hct MCV MCH MCHC RDW Plt Count Lymph % (Auto) [place] % (Auto) Lymph # [place] # Baso # Seg Neutrophils % Seg Neuts % (Manual) Lymphocytes % (Manual) Monocytes % (Manual) Eosinophils % (Manual) Basophils % (Manual) Nucleated RBC % Seg Neutrophils # Seg Neutrophils # Man Lymphocytes # (Manual) Monocytes # (Manual) Eosinophils # (Manual) Basophils # (Manual) PT INR Fibrinogen dRVVT Confirm Interp Factor V Activity POC ABG pH 7.503 H POC ABG pCO2 30.1 L POC ABG pO2 ABG pO2 ABG HCO3 ABG Base Excess ABG Hemoglobin Oxyhemoglobin Sodium Potassium Chloride Carbon Dioxide BUN Creatinine Glucose POC Glucose 138 H 156 H Lactic Acid Calcium Phosphorus Magnesium Direct Bilirubin AST ALT Alkaline Phosphatase Lactate Dehydrogenase Troponin T C-Reactive Protein Total Protein Albumin Prealbumin Triglycerides Cholesterol LDL Cholesterol Direct HDL Cholesterol PTH Intact Urine pH Urine WBC (Auto) Urine Creatinine Urine Total Protein Fluid Total Protein Vancomycin Trough Rheumatoid Factor Complement C4 Miscellaneous Test Crossmatch 12/20/16 12/20/16 12/20/16 00:03 06:17 07:07 WBC RBC Hgb Hct MCV MCH MCHC RDW Plt Count Lymph % (Auto) [place] % (Auto) Lymph # [place] # Baso # Seg Neutrophils % Seg Neuts % (Manual) Lymphocytes % (Manual) Monocytes % (Manual) Eosinophils % (Manual) Basophils % (Manual) Nucleated RBC % Seg Neutrophils # Seg Neutrophils # Man Lymphocytes # (Manual) Monocytes # (Manual) Eosinophils # (Manual) Basophils # (Manual) PT INR Fibrinogen dRVVT Confirm Interp Factor V Activity POC ABG pH POC ABG pCO2 POC ABG pO2 ABG pO2 ABG HCO3 ABG Base Excess ABG Hemoglobin Oxyhemoglobin Sodium Potassium Chloride 97.1 L Carbon Dioxide 20 L BUN 97 H Creatinine 1.8 H Glucose 153 H POC Glucose 152 H 175 H Lactic Acid Calcium Phosphorus Magnesium Direct Bilirubin AST ALT Alkaline Phosphatase Lactate Dehydrogenase Troponin T C-Reactive Protein Total Protein Albumin Prealbumin Triglycerides Cholesterol LDL Cholesterol Direct HDL Cholesterol PTH Intact Urine pH Urine WBC (Auto) Urine Creatinine Urine Total Protein Fluid Total Protein Vancomycin Trough Rheumatoid Factor Complement C4 Miscellaneous Test Crossmatch 12/20/16 12/20/16 12/20/16 12:00 17:42 23:53 WBC RBC Hgb Hct MCV MCH MCHC RDW Plt Count Lymph % (Auto) [place] % (Auto) Lymph # [place] # Baso # Seg Neutrophils % Seg Neuts % (Manual) Lymphocytes % (Manual) Monocytes % (Manual) Eosinophils % (Manual) Basophils % (Manual) Nucleated RBC % Seg Neutrophils # Seg Neutrophils # Man Lymphocytes # (Manual) Monocytes # (Manual) Eosinophils # (Manual) Basophils # (Manual) PT INR Fibrinogen dRVVT Confirm Interp Factor V Activity POC ABG pH POC ABG pCO2 POC ABG pO2 ABG pO2 ABG HCO3 ABG Base Excess ABG Hemoglobin Oxyhemoglobin Sodium Potassium Chloride Carbon Dioxide BUN Creatinine Glucose POC Glucose 141 H 156 H 132 H Lactic Acid Calcium Phosphorus Magnesium Direct Bilirubin AST ALT Alkaline Phosphatase Lactate Dehydrogenase Troponin T C-Reactive Protein Total Protein Albumin Prealbumin Triglycerides Cholesterol LDL Cholesterol Direct HDL Cholesterol PTH Intact Urine pH Urine WBC (Auto) Urine Creatinine Urine Total Protein Fluid Total Protein Vancomycin Trough Rheumatoid Factor Complement C4 Miscellaneous Test Crossmatch 12/21/16 12/21/16 12/21/16 05:49 08:50 12:19 WBC RBC Hgb Hct MCV MCH MCHC RDW Plt Count Lymph % (Auto) [place] % (Auto) Lymph # [place] # Baso # Seg Neutrophils % Seg Neuts % (Manual) Lymphocytes % (Manual) Monocytes % (Manual) Eosinophils % (Manual) Basophils % (Manual) Nucleated RBC % Seg Neutrophils # Seg Neutrophils # Man Lymphocytes # (Manual) Monocytes # (Manual) Eosinophils # (Manual) Basophils # (Manual) PT INR Fibrinogen dRVVT Confirm Interp Factor V Activity POC ABG pH POC ABG pCO2 POC ABG pO2 ABG pO2 ABG HCO3 ABG Base Excess ABG Hemoglobin Oxyhemoglobin Sodium Potassium 5.2 H D Chloride Carbon Dioxide BUN 63 H Creatinine Glucose 122 H POC Glucose 132 H 136 H Lactic Acid Calcium 8.3 L Phosphorus Magnesium Direct Bilirubin AST ALT Alkaline Phosphatase Lactate Dehydrogenase Troponin T C-Reactive Protein Total Protein Albumin Prealbumin Triglycerides Cholesterol LDL Cholesterol Direct HDL Cholesterol PTH Intact Urine pH Urine WBC (Auto) Urine Creatinine Urine Total Protein Fluid Total Protein Vancomycin Trough Rheumatoid Factor Complement C4 Miscellaneous Test Crossmatch 12/21/16 12/21/16 12/22/16 17:22 23:58 05:49 WBC RBC Hgb Hct MCV MCH MCHC RDW Plt Count Lymph % (Auto) [place] % (Auto) Lymph # [place] # Baso # Seg Neutrophils % Seg Neuts % (Manual) Lymphocytes % (Manual) Monocytes % (Manual) Eosinophils % (Manual) Basophils % (Manual) Nucleated RBC % Seg Neutrophils # Seg Neutrophils # Man Lymphocytes # (Manual) Monocytes # (Manual) Eosinophils # (Manual) Basophils # (Manual) PT INR Fibrinogen dRVVT Confirm Interp Factor V Activity POC ABG pH POC ABG pCO2 POC ABG pO2 ABG pO2 ABG HCO3 ABG Base Excess ABG Hemoglobin Oxyhemoglobin Sodium Potassium Chloride Carbon Dioxide BUN Creatinine Glucose POC Glucose 135 H 149 H 140 H Lactic Acid Calcium Phosphorus Magnesium Direct Bilirubin AST ALT Alkaline Phosphatase Lactate Dehydrogenase Troponin T C-Reactive Protein Total Protein Albumin Prealbumin Triglycerides Cholesterol LDL Cholesterol Direct HDL Cholesterol PTH Intact Urine pH Urine WBC (Auto) Urine Creatinine Urine Total Protein Fluid Total Protein Vancomycin Trough Rheumatoid Factor Complement C4 Miscellaneous Test Crossmatch 12/22/16 12/22/16 12/22/16 06:10 11:17 17:31 WBC RBC Hgb Hct MCV MCH MCHC RDW Plt Count Lymph % (Auto) [place] % (Auto) Lymph # [place] # Baso # Seg Neutrophils % Seg Neuts % (Manual) Lymphocytes % (Manual) Monocytes % (Manual) Eosinophils % (Manual) Basophils % (Manual) Nucleated RBC % Seg Neutrophils # Seg Neutrophils # Man Lymphocytes # (Manual) Monocytes # (Manual) Eosinophils # (Manual) Basophils # (Manual) PT INR Fibrinogen dRVVT Confirm Interp Factor V Activity POC ABG pH POC ABG pCO2 POC ABG pO2 ABG pO2 ABG HCO3 ABG Base Excess ABG Hemoglobin Oxyhemoglobin Sodium Potassium Chloride Carbon Dioxide BUN 76 H Creatinine 1.5 H Glucose 241 H POC Glucose 193 H 148 H Lactic Acid Calcium Phosphorus Magnesium Direct Bilirubin AST ALT Alkaline Phosphatase Lactate Dehydrogenase Troponin T C-Reactive Protein Total Protein Albumin Prealbumin Triglycerides Cholesterol LDL Cholesterol Direct HDL Cholesterol PTH Intact Urine pH Urine WBC (Auto) Urine Creatinine Urine Total Protein Fluid Total Protein Vancomycin Trough Rheumatoid Factor Complement C4 Miscellaneous Test Crossmatch 12/22/16 12/23/16 12/23/16 23:58 05:00 05:26 WBC RBC Hgb Hct MCV MCH MCHC RDW Plt Count Lymph % (Auto) [place] % (Auto) Lymph # [place] # Baso # Seg Neutrophils % Seg Neuts % (Manual) Lymphocytes % (Manual) Monocytes % (Manual) Eosinophils % (Manual) Basophils % (Manual) Nucleated RBC % Seg Neutrophils # Seg Neutrophils # Man Lymphocytes # (Manual) Monocytes # (Manual) Eosinophils # (Manual) Basophils # (Manual) PT INR Fibrinogen dRVVT Confirm Interp Factor V Activity POC ABG pH POC ABG pCO2 POC ABG pO2 ABG pO2 ABG HCO3 ABG Base Excess ABG Hemoglobin Oxyhemoglobin Sodium Potassium Chloride Carbon Dioxide BUN 49 H Creatinine Glucose 143 H POC Glucose 165 H 154 H Lactic Acid Calcium 8.2 L Phosphorus Magnesium 1.60 L Direct Bilirubin AST ALT Alkaline Phosphatase Lactate Dehydrogenase Troponin T C-Reactive Protein Total Protein Albumin Prealbumin Triglycerides Cholesterol LDL Cholesterol Direct HDL Cholesterol PTH Intact Urine pH Urine WBC (Auto) Urine Creatinine Urine Total Protein Fluid Total Protein Vancomycin Trough Rheumatoid Factor Complement C4 Miscellaneous Test Crossmatch 12/23/16 12/23/16 12/24/16 12:35 17:01 00:01 WBC RBC Hgb Hct MCV MCH MCHC RDW Plt Count Lymph % (Auto) [place] % (Auto) Lymph # [place] # Baso # Seg Neutrophils % Seg Neuts % (Manual) Lymphocytes % (Manual) Monocytes % (Manual) Eosinophils % (Manual) Basophils % (Manual) Nucleated RBC % Seg Neutrophils # Seg Neutrophils # Man Lymphocytes # (Manual) Monocytes # (Manual) Eosinophils # (Manual) Basophils # (Manual) PT INR Fibrinogen dRVVT Confirm Interp Factor V Activity POC ABG pH POC ABG pCO2 POC ABG pO2 ABG pO2 ABG HCO3 ABG Base Excess ABG Hemoglobin Oxyhemoglobin Sodium Potassium Chloride Carbon Dioxide BUN Creatinine Glucose POC Glucose 164 H 149 H 135 H Lactic Acid Calcium Phosphorus Magnesium Direct Bilirubin AST ALT Alkaline Phosphatase Lactate Dehydrogenase Troponin T C-Reactive Protein Total Protein Albumin Prealbumin Triglycerides Cholesterol LDL Cholesterol Direct HDL Cholesterol PTH Intact Urine pH Urine WBC (Auto) Urine Creatinine Urine Total Protein Fluid Total Protein Vancomycin Trough Rheumatoid Factor Complement C4 Miscellaneous Test Crossmatch 12/24/16 12/24/16 12/24/16 05:41 07:01 11:38 WBC RBC Hgb Hct MCV MCH MCHC RDW Plt Count Lymph % (Auto) [place] % (Auto) Lymph # [place] # Baso # Seg Neutrophils % Seg Neuts % (Manual) Lymphocytes % (Manual) Monocytes % (Manual) Eosinophils % (Manual) Basophils % (Manual) Nucleated RBC % Seg Neutrophils # Seg Neutrophils # Man Lymphocytes # (Manual) Monocytes # (Manual) Eosinophils # (Manual) Basophils # (Manual) PT INR Fibrinogen dRVVT Confirm Interp Factor V Activity POC ABG pH POC ABG pCO2 POC ABG pO2 ABG pO2 ABG HCO3 ABG Base Excess ABG Hemoglobin Oxyhemoglobin Sodium Potassium Chloride Carbon Dioxide BUN 72 H Creatinine 1.3 H Glucose 130 H POC Glucose 132 H 156 H Lactic Acid Calcium 8.2 L Phosphorus Magnesium Direct Bilirubin AST ALT Alkaline Phosphatase Lactate Dehydrogenase Troponin T C-Reactive Protein Total Protein Albumin Prealbumin Triglycerides Cholesterol LDL Cholesterol Direct HDL Cholesterol PTH Intact Urine pH Urine WBC (Auto) Urine Creatinine Urine Total Protein Fluid Total Protein Vancomycin Trough Rheumatoid Factor Complement C4 Miscellaneous Test Crossmatch 12/24/16 12/25/16 12/25/16 17:53 00:23 05:45 WBC RBC Hgb Hct MCV MCH MCHC RDW Plt Count Lymph % (Auto) [place] % (Auto) Lymph # [place] # Baso # Seg Neutrophils % Seg Neuts % (Manual) Lymphocytes % (Manual) Monocytes % (Manual) Eosinophils % (Manual) Basophils % (Manual) Nucleated RBC % Seg Neutrophils # Seg Neutrophils # Man Lymphocytes # (Manual) Monocytes # (Manual) Eosinophils # (Manual) Basophils # (Manual) PT INR Fibrinogen dRVVT Confirm Interp Factor V Activity POC ABG pH POC ABG pCO2 POC ABG pO2 ABG pO2 ABG HCO3 ABG Base Excess ABG Hemoglobin Oxyhemoglobin Sodium 146 H Potassium Chloride Carbon Dioxide BUN 51 H Creatinine Glucose 109 H POC Glucose 169 H 117 H Lactic Acid Calcium Phosphorus Magnesium Direct Bilirubin AST ALT Alkaline Phosphatase Lactate Dehydrogenase Troponin T C-Reactive Protein Total Protein Albumin Prealbumin Triglycerides Cholesterol LDL Cholesterol Direct HDL Cholesterol PTH Intact Urine pH Urine WBC (Auto) Urine Creatinine Urine Total Protein Fluid Total Protein Vancomycin Trough Rheumatoid Factor Complement C4 Miscellaneous Test Crossmatch 12/25/16 12/25/16 12/25/16 06:43 11:29 17:14 WBC RBC Hgb Hct MCV MCH MCHC RDW Plt Count Lymph % (Auto) [place] % (Auto) Lymph # [place] # Baso # Seg Neutrophils % Seg Neuts % (Manual) Lymphocytes % (Manual) Monocytes % (Manual) Eosinophils % (Manual) Basophils % (Manual) Nucleated RBC % Seg Neutrophils # Seg Neutrophils # Man Lymphocytes # (Manual) Monocytes # (Manual) Eosinophils # (Manual) Basophils # (Manual) PT INR Fibrinogen dRVVT Confirm Interp Factor V Activity POC ABG pH POC ABG pCO2 POC ABG pO2 ABG pO2 ABG HCO3 ABG Base Excess ABG Hemoglobin Oxyhemoglobin Sodium Potassium Chloride Carbon Dioxide BUN Creatinine Glucose POC Glucose 117 H 128 H 120 H Lactic Acid Calcium Phosphorus Magnesium Direct Bilirubin AST ALT Alkaline Phosphatase Lactate Dehydrogenase Troponin T C-Reactive Protein Total Protein Albumin Prealbumin Triglycerides Cholesterol LDL Cholesterol Direct HDL Cholesterol PTH Intact Urine pH Urine WBC (Auto) Urine Creatinine Urine Total Protein Fluid Total Protein Vancomycin Trough Rheumatoid Factor Complement C4 Miscellaneous Test Crossmatch 12/25/16 12/26/16 12/26/16 23:54 05:40 05:50 WBC 16.2 H RBC 2.32 L Hgb 6.2 L Hct 20.1 L MCV MCH 27 L MCHC RDW 18.6 H Plt Count Lymph % (Auto) [place] % (Auto) Lymph # [place] # Baso # Seg Neutrophils % Seg Neuts % (Manual) Lymphocytes % (Manual) Monocytes % (Manual) Eosinophils % (Manual) Basophils % (Manual) Nucleated RBC % Seg Neutrophils # Seg Neutrophils # Man Lymphocytes # (Manual) Monocytes # (Manual) Eosinophils # (Manual) Basophils # (Manual) PT INR Fibrinogen dRVVT Confirm Interp Factor V Activity POC ABG pH POC ABG pCO2 POC ABG pO2 ABG pO2 ABG HCO3 ABG Base Excess ABG Hemoglobin Oxyhemoglobin Sodium Potassium Chloride Carbon Dioxide BUN Creatinine Glucose POC Glucose 126 H 132 H Lactic Acid Calcium Phosphorus Magnesium Direct Bilirubin AST ALT Alkaline Phosphatase Lactate Dehydrogenase Troponin T C-Reactive Protein Total Protein Albumin Prealbumin Triglycerides Cholesterol LDL Cholesterol Direct HDL Cholesterol PTH Intact Urine pH Urine WBC (Auto) Urine Creatinine Urine Total Protein Fluid Total Protein Vancomycin Trough Rheumatoid Factor Complement C4 Miscellaneous Test Crossmatch 12/26/16 12/26/16 12/26/16 05:50 12:17 12:33 WBC RBC Hgb Hct MCV MCH MCHC RDW Plt Count Lymph % (Auto) [place] % (Auto) Lymph # [place] # Baso # Seg Neutrophils % Seg Neuts % (Manual) Lymphocytes % (Manual) Monocytes % (Manual) Eosinophils % (Manual) Basophils % (Manual) Nucleated RBC % Seg Neutrophils # Seg Neutrophils # Man Lymphocytes # (Manual) Monocytes # (Manual) Eosinophils # (Manual) Basophils # (Manual) PT INR Fibrinogen dRVVT Confirm Interp Factor V Activity POC ABG pH POC ABG pCO2 POC ABG pO2 ABG pO2 ABG HCO3 ABG Base Excess ABG Hemoglobin Oxyhemoglobin Sodium Potassium Chloride Carbon Dioxide BUN 73 H Creatinine 1.3 H Glucose 113 H POC Glucose 117 H Lactic Acid Calcium Phosphorus Magnesium Direct Bilirubin AST ALT Alkaline Phosphatase Lactate Dehydrogenase Troponin T C-Reactive Protein Total Protein Albumin Prealbumin Triglycerides Cholesterol LDL Cholesterol Direct HDL Cholesterol PTH Intact Urine pH Urine WBC (Auto) Urine Creatinine Urine Total Protein Fluid Total Protein Vancomycin Trough Rheumatoid Factor Complement C4 Miscellaneous Test Crossmatch See Detail 12/26/16 12/26/16 12/27/16 20:00 23:21 05:00 WBC RBC Hgb 8.4 L Hct 26.3 L D MCV MCH MCHC RDW Plt Count Lymph % (Auto) [place] % (Auto) Lymph # [place] # Baso # Seg Neutrophils % Seg Neuts % (Manual) Lymphocytes % (Manual) Monocytes % (Manual) Eosinophils % (Manual) Basophils % (Manual) Nucleated RBC % Seg Neutrophils # Seg Neutrophils # Man Lymphocytes # (Manual) Monocytes # (Manual) Eosinophils # (Manual) Basophils # (Manual) PT INR Fibrinogen dRVVT Confirm Interp Factor V Activity POC ABG pH POC ABG pCO2 POC ABG pO2 ABG pO2 ABG HCO3 ABG Base Excess ABG Hemoglobin Oxyhemoglobin Sodium Potassium Chloride Carbon Dioxide BUN 85 H Creatinine 1.6 H Glucose 118 H POC Glucose 124 H Lactic Acid Calcium Phosphorus 4.80 H Magnesium Direct Bilirubin AST ALT Alkaline Phosphatase Lactate Dehydrogenase Troponin T C-Reactive Protein Total Protein Albumin Prealbumin Triglycerides Cholesterol LDL Cholesterol Direct HDL Cholesterol PTH Intact Urine pH Urine WBC (Auto) Urine Creatinine Urine Total Protein Fluid Total Protein Vancomycin Trough Rheumatoid Factor Complement C4 Miscellaneous Test Crossmatch 12/27/16 12/27/16 12/27/16 05:00 05:35 12:24 WBC RBC Hgb 7.6 L Hct 22.8 L MCV MCH MCHC RDW Plt Count Lymph % (Auto) [place] % (Auto) Lymph # [place] # Baso # Seg Neutrophils % Seg Neuts % (Manual) Lymphocytes % (Manual) Monocytes % (Manual) Eosinophils % (Manual) Basophils % (Manual) Nucleated RBC % Seg Neutrophils # Seg Neutrophils # Man Lymphocytes # (Manual) Monocytes # (Manual) Eosinophils # (Manual) Basophils # (Manual) PT INR Fibrinogen dRVVT Confirm Interp Factor V Activity POC ABG pH POC ABG pCO2 POC ABG pO2 ABG pO2 ABG HCO3 ABG Base Excess ABG Hemoglobin Oxyhemoglobin Sodium Potassium Chloride Carbon Dioxide BUN Creatinine Glucose POC Glucose 115 H 131 H Lactic Acid Calcium Phosphorus Magnesium Direct Bilirubin AST ALT Alkaline Phosphatase Lactate Dehydrogenase Troponin T C-Reactive Protein Total Protein Albumin Prealbumin Triglycerides Cholesterol LDL Cholesterol Direct HDL Cholesterol PTH Intact Urine pH Urine WBC (Auto) Urine Creatinine Urine Total Protein Fluid Total Protein Vancomycin Trough Rheumatoid Factor Complement C4 Miscellaneous Test Crossmatch 12/27/16 12/28/16 12/28/16 17:16 00:18 04:00 WBC RBC Hgb Hct MCV MCH MCHC RDW Plt Count Lymph % (Auto) [place] % (Auto) Lymph # [place] # Baso # Seg Neutrophils % Seg Neuts % (Manual) Lymphocytes % (Manual) Monocytes % (Manual) Eosinophils % (Manual) Basophils % (Manual) Nucleated RBC % Seg Neutrophils # Seg Neutrophils # Man Lymphocytes # (Manual) Monocytes # (Manual) Eosinophils # (Manual) Basophils # (Manual) PT INR Fibrinogen dRVVT Confirm Interp Factor V Activity POC ABG pH POC ABG pCO2 POC ABG pO2 ABG pO2 ABG HCO3 ABG Base Excess ABG Hemoglobin Oxyhemoglobin Sodium Potassium 3.5 L Chloride Carbon Dioxide BUN 57 H Creatinine Glucose 118 H POC Glucose 136 H 120 H Lactic Acid Calcium 8.3 L Phosphorus Magnesium Direct Bilirubin AST ALT Alkaline Phosphatase Lactate Dehydrogenase Troponin T C-Reactive Protein Total Protein Albumin Prealbumin Triglycerides Cholesterol LDL Cholesterol Direct HDL Cholesterol PTH Intact Urine pH Urine WBC (Auto) Urine Creatinine Urine Total Protein Fluid Total Protein Vancomycin Trough Rheumatoid Factor Complement C4 Miscellaneous Test Crossmatch 12/28/16 12/28/16 12/28/16 04:00 05:11 08:30 WBC 17.0 H RBC 2.58 L Hgb 7.1 L Hct 22.0 L MCV MCH MCHC RDW 17.6 H Plt Count Lymph % (Auto) 12.2 L [place] % (Auto) Lymph # [place] # 1.1 H Baso # Seg Neutrophils % 80.5 H Seg Neuts % (Manual) Lymphocytes % (Manual) Monocytes % (Manual) Eosinophils % (Manual) Basophils % (Manual) Nucleated RBC % Seg Neutrophils # 13.7 H Seg Neutrophils # Man Lymphocytes # (Manual) Monocytes # (Manual) Eosinophils # (Manual) Basophils # (Manual) PT 16.1 H INR 1.23 H Fibrinogen dRVVT Confirm Interp Factor V Activity POC ABG pH POC ABG pCO2 POC ABG pO2 ABG pO2 ABG HCO3 ABG Base Excess ABG Hemoglobin Oxyhemoglobin Sodium Potassium Chloride Carbon Dioxide BUN Creatinine Glucose POC Glucose 122 H Lactic Acid Calcium Phosphorus Magnesium Direct Bilirubin AST ALT Alkaline Phosphatase Lactate Dehydrogenase Troponin T C-Reactive Protein Total Protein Albumin Prealbumin Triglycerides Cholesterol LDL Cholesterol Direct HDL Cholesterol PTH Intact Urine pH Urine WBC (Auto) Urine Creatinine Urine Total Protein Fluid Total Protein Vancomycin Trough Rheumatoid Factor Complement C4 Miscellaneous Test Crossmatch 12/28/16 12/28/16 12/28/16 12:27 16:32 23:46 WBC RBC Hgb Hct MCV MCH MCHC RDW Plt Count Lymph % (Auto) [place] % (Auto) Lymph # [place] # Baso # Seg Neutrophils % Seg Neuts % (Manual) Lymphocytes % (Manual) Monocytes % (Manual) Eosinophils % (Manual) Basophils % (Manual) Nucleated RBC % Seg Neutrophils # Seg Neutrophils # Man Lymphocytes # (Manual) Monocytes # (Manual) Eosinophils # (Manual) Basophils # (Manual) PT INR Fibrinogen dRVVT Confirm Interp Factor V Activity POC ABG pH POC ABG pCO2 POC ABG pO2 ABG pO2 ABG HCO3 ABG Base Excess ABG Hemoglobin Oxyhemoglobin Sodium Potassium Chloride Carbon Dioxide BUN Creatinine Glucose POC Glucose 127 H 117 H 108 H Lactic Acid Calcium Phosphorus Magnesium Direct Bilirubin AST ALT Alkaline Phosphatase Lactate Dehydrogenase Troponin T C-Reactive Protein Total Protein Albumin Prealbumin Triglycerides Cholesterol LDL Cholesterol Direct HDL Cholesterol PTH Intact Urine pH Urine WBC (Auto) Urine Creatinine Urine Total Protein Fluid Total Protein Vancomycin Trough Rheumatoid Factor Complement C4 Miscellaneous Test Crossmatch 12/29/16 12/29/16 12/29/16 05:15 05:15 05:32 WBC RBC Hgb Hct MCV MCH MCHC RDW Plt Count Lymph % (Auto) [place] % (Auto) Lymph # [place] # Baso # Seg Neutrophils % Seg Neuts % (Manual) Lymphocytes % (Manual) Monocytes % (Manual) Eosinophils % (Manual) Basophils % (Manual) Nucleated RBC % Seg Neutrophils # Seg Neutrophils # Man Lymphocytes # (Manual) Monocytes # (Manual) Eosinophils # (Manual) Basophils # (Manual) PT INR Fibrinogen dRVVT Confirm Interp Factor V Activity POC ABG pH POC ABG pCO2 POC ABG pO2 ABG pO2 ABG HCO3 ABG Base Excess ABG Hemoglobin Oxyhemoglobin Sodium Potassium Chloride Carbon Dioxide BUN 74 H Creatinine 1.6 H Glucose 111 H POC Glucose 123 H Lactic Acid Calcium Phosphorus Magnesium Direct Bilirubin AST ALT Alkaline Phosphatase Lactate Dehydrogenase Troponin T C-Reactive Protein Total Protein Albumin Prealbumin 0.110 L Triglycerides Cholesterol LDL Cholesterol Direct HDL Cholesterol PTH Intact Urine pH Urine WBC (Auto) Urine Creatinine Urine Total Protein Fluid Total Protein Vancomycin Trough Rheumatoid Factor Complement C4 Miscellaneous Test Crossmatch 1112/29/16 12/29/16 11:43 13:45 14:00 WBC 13.8 H RBC 2.26 L Hgb 6.3 L Hct 20.4 L MCV MCH MCHC RDW 18.3 H Plt Count Lymph % (Auto) [place] % (Auto) Lymph # [place] # 0.9 H Baso # Seg Neutrophils % 78.6 H Seg Neuts % (Manual) Lymphocytes % (Manual) Monocytes % (Manual) Eosinophils % (Manual) Basophils % (Manual) Nucleated RBC % Seg Neutrophils # 10.8 H Seg Neutrophils # Man Lymphocytes # (Manual) Monocytes # (Manual) Eosinophils # (Manual) Basophils # (Manual) PT INR Fibrinogen dRVVT Confirm Interp Factor V Activity POC ABG pH POC ABG pCO2 POC ABG pO2 ABG pO2 ABG HCO3 ABG Base Excess ABG Hemoglobin Oxyhemoglobin Sodium Potassium Chloride Carbon Dioxide BUN Creatinine Glucose POC Glucose 133 H Lactic Acid Calcium Phosphorus Magnesium Direct Bilirubin AST ALT Alkaline Phosphatase Lactate Dehydrogenase Troponin T C-Reactive Protein Total Protein Albumin Prealbumin Triglycerides Cholesterol LDL Cholesterol Direct HDL Cholesterol PTH Intact Urine pH Urine WBC (Auto) Urine Creatinine Urine Total Protein Fluid Total Protein Vancomycin Trough Rheumatoid Factor Complement C4 Miscellaneous Test Crossmatch See Detail 12/29/16 12/29/16 12/29/16 17:03 23:15 23:22 WBC RBC Hgb 7.3 L Hct 22.3 L MCV MCH MCHC RDW Plt Count Lymph % (Auto) [place] % (Auto) Lymph # [place] # Baso # Seg Neutrophils % Seg Neuts % (Manual) Lymphocytes % (Manual) Monocytes % (Manual) Eosinophils % (Manual) Basophils % (Manual) Nucleated RBC % Seg Neutrophils # Seg Neutrophils # Man Lymphocytes # (Manual) Monocytes # (Manual) Eosinophils # (Manual) Basophils # (Manual) PT INR Fibrinogen dRVVT Confirm Interp Factor V Activity POC ABG pH POC ABG pCO2 POC ABG pO2 ABG pO2 ABG HCO3 ABG Base Excess ABG Hemoglobin Oxyhemoglobin Sodium Potassium Chloride Carbon Dioxide BUN Creatinine Glucose POC Glucose 139 H 120 H Lactic Acid Calcium Phosphorus Magnesium Direct Bilirubin AST ALT Alkaline Phosphatase Lactate Dehydrogenase Troponin T C-Reactive Protein Total Protein Albumin Prealbumin Triglycerides Cholesterol LDL Cholesterol Direct HDL Cholesterol PTH Intact Urine pH Urine WBC (Auto) Urine Creatinine Urine Total Protein Fluid Total Protein Vancomycin Trough Rheumatoid Factor Complement C4 Miscellaneous Test Crossmatch 12/30/16 12/30/1612/30/17 04:20 04:20 05:43 WBC 15.6 H RBC 2.81 L Hgb 8.0 L Hct 24.0 L MCV MCH MCHC RDW 16.9 H Plt Count Lymph % (Auto) [place] % (Auto) Lymph # [place] # 1.0 H Baso # Seg Neutrophils % 76.2 H Seg Neuts % (Manual) Lymphocytes % (Manual) Monocytes % (Manual) Eosinophils % (Manual) Basophils % (Manual) Nucleated RBC % Seg Neutrophils # 11.9 H Seg Neutrophils # Man Lymphocytes # (Manual) Monocytes # (Manual) Eosinophils # (Manual) Basophils # (Manual) PT INR Fibrinogen dRVVT Confirm Interp Factor V Activity POC ABG pH POC ABG pCO2 POC ABG pO2 ABG pO2 ABG HCO3 ABG Base Excess ABG Hemoglobin Oxyhemoglobin Sodium Potassium Chloride Carbon Dioxide BUN 87 H Creatinine 1.8 H Glucose 119 H POC Glucose 115 H Lactic Acid Calcium Phosphorus Magnesium Direct Bilirubin AST ALT Alkaline Phosphatase Lactate Dehydrogenase Troponin T C-Reactive Protein Total Protein Albumin Prealbumin Triglycerides Cholesterol LDL Cholesterol Direct HDL Cholesterol PTH Intact Urine pH Urine WBC (Auto) Urine Creatinine Urine Total Protein Fluid Total Protein Vancomycin Trough Rheumatoid Factor Complement C4 Miscellaneous Test Crossmatch 12/30/16 12/30/16 12/31/16 17:27 23:21 04:00 WBC RBC Hgb Hct MCV MCH MCHC RDW Plt Count Lymph % (Auto) [place] % (Auto) Lymph # [place] # Baso # Seg Neutrophils % Seg Neuts % (Manual) Lymphocytes % (Manual) Monocytes % (Manual) Eosinophils % (Manual) Basophils % (Manual) Nucleated RBC % Seg Neutrophils # Seg Neutrophils # Man Lymphocytes # (Manual) Monocytes # (Manual) Eosinophils # (Manual) Basophils # (Manual) PT INR Fibrinogen dRVVT Confirm Interp Factor V Activity POC ABG pH POC ABG pCO2 POC ABG pO2 ABG pO2 ABG HCO3 ABG Base Excess ABG Hemoglobin Oxyhemoglobin Sodium Potassium Chloride Carbon Dioxide BUN 59 H Creatinine Glucose 298 H POC Glucose 144 H 125 H Lactic Acid Calcium Phosphorus Magnesium Direct Bilirubin AST ALT Alkaline Phosphatase Lactate Dehydrogenase Troponin T C-Reactive Protein Total Protein Albumin Prealbumin Triglycerides Cholesterol LDL Cholesterol Direct HDL Cholesterol PTH Intact Urine pH Urine WBC (Auto) Urine Creatinine Urine Total Protein Fluid Total Protein Vancomycin Trough Rheumatoid Factor Complement C4 Miscellaneous Test Crossmatch 12/31/16 12/31/1612/31/17 05:11 12:18 18:17 WBC RBC Hgb Hct MCV MCH MCHC RDW Plt Count Lymph % (Auto) [place] % (Auto) Lymph # [place] # Baso # Seg Neutrophils % Seg Neuts % (Manual) Lymphocytes % (Manual) Monocytes % (Manual) Eosinophils % (Manual) Basophils % (Manual) Nucleated RBC % Seg Neutrophils # Seg Neutrophils # Man Lymphocytes # (Manual) Monocytes # (Manual) Eosinophils # (Manual) Basophils # (Manual) PT INR Fibrinogen dRVVT Confirm Interp Factor V Activity POC ABG pH POC ABG pCO2 POC ABG pO2 ABG pO2 ABG HCO3 ABG Base Excess ABG Hemoglobin Oxyhemoglobin Sodium Potassium Chloride Carbon Dioxide BUN Creatinine Glucose POC Glucose 167 H 125 H 133 H Lactic Acid Calcium Phosphorus Magnesium Direct Bilirubin AST ALT Alkaline Phosphatase Lactate Dehydrogenase Troponin T C-Reactive Protein Total Protein Albumin Prealbumin Triglycerides Cholesterol LDL Cholesterol Direct HDL Cholesterol PTH Intact Urine pH Urine WBC (Auto) Urine Creatinine Urine Total Protein Fluid Total Protein Vancomycin Trough Rheumatoid Factor Complement C4 Miscellaneous Test Crossmatch 12/31/16 01/01/17 01/01/17 23:55 05:00 05:12 WBC RBC Hgb Hct MCV MCH MCHC RDW Plt Count Lymph % (Auto) [place] % (Auto) Lymph # [place] # Baso # Seg Neutrophils % Seg Neuts % (Manual) Lymphocytes % (Manual) Monocytes % (Manual) Eosinophils % (Manual) Basophils % (Manual) Nucleated RBC % Seg Neutrophils # Seg Neutrophils # Man Lymphocytes # (Manual) Monocytes # (Manual) Eosinophils # (Manual) Basophils # (Manual) PT INR Fibrinogen dRVVT Confirm Interp Factor V Activity POC ABG pH POC ABG pCO2 POC ABG pO2 ABG pO2 ABG HCO3 ABG Base Excess ABG Hemoglobin Oxyhemoglobin Sodium Potassium Chloride Carbon Dioxide BUN 76 H Creatinine 1.5 H Glucose 109 H POC Glucose 129 H 129 H Lactic Acid Calcium Phosphorus Magnesium Direct Bilirubin AST ALT Alkaline Phosphatase 536 H Lactate Dehydrogenase Troponin T C-Reactive Protein Total Protein Albumin 1.5 L Prealbumin Triglycerides Cholesterol LDL Cholesterol Direct HDL Cholesterol PTH Intact Urine pH Urine WBC (Auto) Urine Creatinine Urine Total Protein Fluid Total Protein Vancomycin Trough Rheumatoid Factor Complement C4 Miscellaneous Test Crossmatch 01/01/17 01/01/17 01/01/17 12:25 17:01 23:32 WBC RBC Hgb Hct MCV MCH MCHC RDW Plt Count Lymph % (Auto) [place] % (Auto) Lymph # [place] # Baso # Seg Neutrophils % Seg Neuts % (Manual) Lymphocytes % (Manual) Monocytes % (Manual) Eosinophils % (Manual) Basophils % (Manual) Nucleated RBC % Seg Neutrophils # Seg Neutrophils # Man Lymphocytes # (Manual) Monocytes # (Manual) Eosinophils # (Manual) Basophils # (Manual) PT INR Fibrinogen dRVVT Confirm Interp Factor V Activity POC ABG pH POC ABG pCO2 POC ABG pO2 ABG pO2 ABG HCO3 ABG Base Excess ABG Hemoglobin Oxyhemoglobin Sodium Potassium Chloride Carbon Dioxide BUN Creatinine Glucose POC Glucose 140 H 142 H 112 H Lactic Acid Calcium Phosphorus Magnesium Direct Bilirubin AST ALT Alkaline Phosphatase Lactate Dehydrogenase Troponin T C-Reactive Protein Total Protein Albumin Prealbumin Triglycerides Cholesterol LDL Cholesterol Direct HDL Cholesterol PTH Intact Urine pH Urine WBC (Auto) Urine Creatinine Urine Total Protein Fluid Total Protein Vancomycin Trough Rheumatoid Factor Complement C4 Miscellaneous Test Crossmatch 01/02/17 01/02/17 01/02/17 04:56 06:00 11:37 WBC RBC Hgb Hct MCV MCH MCHC RDW Plt Count Lymph % (Auto) [place] % (Auto) Lymph # [place] # Baso # Seg Neutrophils % Seg Neuts % (Manual) Lymphocytes % (Manual) Monocytes % (Manual) Eosinophils % (Manual) Basophils % (Manual) Nucleated RBC % Seg Neutrophils # Seg Neutrophils # Man Lymphocytes # (Manual) Monocytes # (Manual) Eosinophils # (Manual) Basophils # (Manual) PT INR Fibrinogen dRVVT Confirm Interp Factor V Activity POC ABG pH POC ABG pCO2 POC ABG pO2 ABG pO2 ABG HCO3 ABG Base Excess ABG Hemoglobin Oxyhemoglobin Sodium Potassium Chloride Carbon Dioxide BUN 88 H Creatinine 1.7 H Glucose 113 H POC Glucose 136 H 200 H Lactic Acid Calcium Phosphorus Magnesium Direct Bilirubin AST ALT Alkaline Phosphatase Lactate Dehydrogenase Troponin T C-Reactive Protein Total Protein Albumin Prealbumin Triglycerides Cholesterol LDL Cholesterol Direct HDL Cholesterol PTH Intact Urine pH Urine WBC (Auto) Urine Creatinine Urine Total Protein Fluid Total Protein Vancomycin Trough Rheumatoid Factor Complement C4 Miscellaneous Test Crossmatch 01/02/17 01/02/17 01/03/17 17:42 22:52 04:54 WBC RBC Hgb Hct MCV MCH MCHC RDW Plt Count Lymph % (Auto) [place] % (Auto) Lymph # [place] # Baso # Seg Neutrophils % Seg Neuts % (Manual) Lymphocytes % (Manual) Monocytes % (Manual) Eosinophils % (Manual) Basophils % (Manual) Nucleated RBC % Seg Neutrophils # Seg Neutrophils # Man Lymphocytes # (Manual) Monocytes # (Manual) Eosinophils # (Manual) Basophils # (Manual) PT INR Fibrinogen dRVVT Confirm Interp Factor V Activity POC ABG pH POC ABG pCO2 POC ABG pO2 ABG pO2 ABG HCO3 ABG Base Excess ABG Hemoglobin Oxyhemoglobin Sodium Potassium Chloride Carbon Dioxide BUN Creatinine Glucose POC Glucose 112 H 133 H 111 H Lactic Acid Calcium Phosphorus Magnesium Direct Bilirubin AST ALT Alkaline Phosphatase Lactate Dehydrogenase Troponin T C-Reactive Protein Total Protein Albumin Prealbumin Triglycerides Cholesterol LDL Cholesterol Direct HDL Cholesterol PTH Intact Urine pH Urine WBC (Auto) Urine Creatinine Urine Total Protein Fluid Total Protein Vancomycin Trough Rheumatoid Factor Complement C4 Miscellaneous Test Crossmatch 01/03/17 01/03/17 01/03/17 05:00 05:00 14:02 WBC 11.2 H RBC 2.56 L Hgb 7.2 L Hct 22.3 L MCV MCH MCHC RDW 17.3 H Plt Count Lymph % (Auto) [place] % (Auto) 10.0 H Lymph # [place] # 1.1 H Baso # Seg Neutrophils % 70.5 H Seg Neuts % (Manual) Lymphocytes % (Manual) Monocytes % (Manual) Eosinophils % (Manual) Basophils % (Manual) Nucleated RBC % Seg Neutrophils # 7.9 H Seg Neutrophils # Man Lymphocytes # (Manual) Monocytes # (Manual) Eosinophils # (Manual) Basophils # (Manual) PT INR Fibrinogen dRVVT Confirm Interp Factor V Activity POC ABG pH POC ABG pCO2 POC ABG pO2 ABG pO2 ABG HCO3 ABG Base Excess ABG Hemoglobin Oxyhemoglobin Sodium Potassium Chloride Carbon Dioxide BUN 60 H Creatinine 1.3 H Glucose 110 H POC Glucose 119 H Lactic Acid Calcium Phosphorus Magnesium Direct Bilirubin AST ALT Alkaline Phosphatase Lactate Dehydrogenase Troponin T C-Reactive Protein Total Protein Albumin Prealbumin Triglycerides Cholesterol LDL Cholesterol Direct HDL Cholesterol PTH Intact Urine pH Urine WBC (Auto) Urine Creatinine Urine Total Protein Fluid Total Protein Vancomycin Trough Rheumatoid Factor Complement C4 Miscellaneous Test Crossmatch 01/03/17 01/03/17 01/04/17 18:13 23:40 05:57 WBC RBC Hgb Hct MCV MCH MCHC RDW Plt Count Lymph % (Auto) [place] % (Auto) Lymph # [place] # Baso # Seg Neutrophils % Seg Neuts % (Manual) Lymphocytes % (Manual) Monocytes % (Manual) Eosinophils % (Manual) Basophils % (Manual) Nucleated RBC % Seg Neutrophils # Seg Neutrophils # Man Lymphocytes # (Manual) Monocytes # (Manual) Eosinophils # (Manual) Basophils # (Manual) PT INR Fibrinogen dRVVT Confirm Interp Factor V Activity POC ABG pH POC ABG pCO2 POC ABG pO2 ABG pO2 ABG HCO3 ABG Base Excess ABG Hemoglobin Oxyhemoglobin Sodium Potassium Chloride Carbon Dioxide BUN Creatinine Glucose POC Glucose 107 H 129 H 111 H Lactic Acid Calcium Phosphorus Magnesium Direct Bilirubin AST ALT Alkaline Phosphatase Lactate Dehydrogenase Troponin T C-Reactive Protein Total Protein Albumin Prealbumin Triglycerides Cholesterol LDL Cholesterol Direct HDL Cholesterol PTH Intact Urine pH Urine WBC (Auto) Urine Creatinine Urine Total Protein Fluid Total Protein Vancomycin Trough Rheumatoid Factor Complement C4 Miscellaneous Test Crossmatch 01/04/17 01/04/17 01/04/17 12:46 15:27 17:11 WBC RBC Hgb Hct MCV MCH MCHC RDW Plt Count Lymph % (Auto) [place] % (Auto) Lymph # [place] # Baso # Seg Neutrophils % Seg Neuts % (Manual) Lymphocytes % (Manual) Monocytes % (Manual) Eosinophils % (Manual) Basophils % (Manual) Nucleated RBC % Seg Neutrophils # Seg Neutrophils # Man Lymphocytes # (Manual) Monocytes # (Manual) Eosinophils # (Manual) Basophils # (Manual) PT INR Fibrinogen dRVVT Confirm Interp Factor V Activity POC ABG pH POC ABG pCO2 POC ABG pO2 ABG pO2 ABG HCO3 ABG Base Excess ABG Hemoglobin Oxyhemoglobin Sodium Potassium Chloride Carbon Dioxide BUN 43 H Creatinine Glucose 124 H POC Glucose 159 H 125 H Lactic Acid Calcium 8.0 L Phosphorus 2.10 L Magnesium Direct Bilirubin AST ALT Alkaline Phosphatase Lactate Dehydrogenase Troponin T C-Reactive Protein Total Protein Albumin Prealbumin Triglycerides Cholesterol LDL Cholesterol Direct HDL Cholesterol PTH Intact Urine pH Urine WBC (Auto) Urine Creatinine Urine Total Protein Fluid Total Protein Vancomycin Trough Rheumatoid Factor Complement C4 Miscellaneous Test Crossmatch 01/04/17 01/05/17 01/05/17 23:31 04:00 05:46 WBC RBC Hgb Hct MCV MCH MCHC RDW Plt Count Lymph % (Auto) [place] % (Auto) Lymph # [place] # Baso # Seg Neutrophils % Seg Neuts % (Manual) Lymphocytes % (Manual) Monocytes % (Manual) Eosinophils % (Manual) Basophils % (Manual) Nucleated RBC % Seg Neutrophils # Seg Neutrophils # Man Lymphocytes # (Manual) Monocytes # (Manual) Eosinophils # (Manual) Basophils # (Manual) PT INR Fibrinogen dRVVT Confirm Interp Factor V Activity POC ABG pH POC ABG pCO2 POC ABG pO2 ABG pO2 ABG HCO3 ABG Base Excess ABG Hemoglobin Oxyhemoglobin Sodium Potassium Chloride Carbon Dioxide BUN 52 H Creatinine 1.3 H Glucose 113 H POC Glucose 123 H 118 H Lactic Acid Calcium Phosphorus 2.40 L Magnesium Direct Bilirubin AST ALT Alkaline Phosphatase Lactate Dehydrogenase Troponin T C-Reactive Protein Total Protein Albumin Prealbumin Triglycerides Cholesterol LDL Cholesterol Direct HDL Cholesterol PTH Intact Urine pH Urine WBC (Auto) Urine Creatinine Urine Total Protein Fluid Total Protein Vancomycin Trough Rheumatoid Factor Complement C4 Miscellaneous Test Crossmatch 01/05/17 01/05/17 01/05/17 11:41 17:48 23:27 WBC RBC Hgb Hct MCV MCH MCHC RDW Plt Count Lymph % (Auto) [place] % (Auto) Lymph # [place] # Baso # Seg Neutrophils % Seg Neuts % (Manual) Lymphocytes % (Manual) Monocytes % (Manual) Eosinophils % (Manual) Basophils % (Manual) Nucleated RBC % Seg Neutrophils # Seg Neutrophils # Man Lymphocytes # (Manual) Monocytes # (Manual) Eosinophils # (Manual) Basophils # (Manual) PT INR Fibrinogen dRVVT Confirm Interp Factor V Activity POC ABG pH POC ABG pCO2 POC ABG pO2 ABG pO2 ABG HCO3 ABG Base Excess ABG Hemoglobin Oxyhemoglobin Sodium Potassium Chloride Carbon Dioxide BUN Creatinine Glucose POC Glucose 163 H 142 H 155 H Lactic Acid Calcium Phosphorus Magnesium Direct Bilirubin AST ALT Alkaline Phosphatase Lactate Dehydrogenase Troponin T C-Reactive Protein Total Protein Albumin Prealbumin Triglycerides Cholesterol LDL Cholesterol Direct HDL Cholesterol PTH Intact Urine pH Urine WBC (Auto) Urine Creatinine Urine Total Protein Fluid Total Protein Vancomycin Trough Rheumatoid Factor Complement C4 Miscellaneous Test Crossmatch 01/06/17 01/06/17 01/06/17 05:20 07:35 11:18 WBC RBC Hgb Hct MCV MCH MCHC RDW Plt Count Lymph % (Auto) [place] % (Auto) Lymph # [place] # Baso # Seg Neutrophils % Seg Neuts % (Manual) Lymphocytes % (Manual) Monocytes % (Manual) Eosinophils % (Manual) Basophils % (Manual) Nucleated RBC % Seg Neutrophils # Seg Neutrophils # Man Lymphocytes # (Manual) Monocytes # (Manual) Eosinophils # (Manual) Basophils # (Manual) PT INR Fibrinogen dRVVT Confirm Interp Factor V Activity POC ABG pH POC ABG pCO2 POC ABG pO2 ABG pO2 ABG HCO3 ABG Base Excess ABG Hemoglobin Oxyhemoglobin Sodium Potassium Chloride Carbon Dioxide BUN 74 H Creatinine 1.6 H Glucose 135 H POC Glucose 108 H 149 H Lactic Acid Calcium Phosphorus Magnesium Direct Bilirubin AST ALT Alkaline Phosphatase Lactate Dehydrogenase Troponin T C-Reactive Protein Total Protein Albumin Prealbumin Triglycerides Cholesterol LDL Cholesterol Direct HDL Cholesterol PTH Intact Urine pH Urine WBC (Auto) Urine Creatinine Urine Total Protein Fluid Total Protein Vancomycin Trough Rheumatoid Factor Complement C4 Miscellaneous Test Crossmatch 01/06/17 01/07/17 01/07/17 17:17 00:23 05:31 WBC RBC Hgb Hct MCV MCH MCHC RDW Plt Count Lymph % (Auto) [place] % (Auto) Lymph # [place] # Baso # Seg Neutrophils % Seg Neuts % (Manual) Lymphocytes % (Manual) Monocytes % (Manual) Eosinophils % (Manual) Basophils % (Manual) Nucleated RBC % Seg Neutrophils # Seg Neutrophils # Man Lymphocytes # (Manual) Monocytes # (Manual) Eosinophils # (Manual) Basophils # (Manual) PT INR Fibrinogen dRVVT Confirm Interp Factor V Activity POC ABG pH POC ABG pCO2 POC ABG pO2 ABG pO2 ABG HCO3 ABG Base Excess ABG Hemoglobin Oxyhemoglobin Sodium Potassium Chloride Carbon Dioxide BUN Creatinine Glucose POC Glucose 146 H 165 H 153 H Lactic Acid Calcium Phosphorus Magnesium Direct Bilirubin AST ALT Alkaline Phosphatase Lactate Dehydrogenase Troponin T C-Reactive Protein Total Protein Albumin Prealbumin Triglycerides Cholesterol LDL Cholesterol Direct HDL Cholesterol PTH Intact Urine pH Urine WBC (Auto) Urine Creatinine Urine Total Protein Fluid Total Protein Vancomycin Trough Rheumatoid Factor Complement C4 Miscellaneous Test Crossmatch 01/07/17 01/07/17 01/07/17 06:00 11:39 17:11 WBC RBC Hgb Hct MCV MCH MCHC RDW Plt Count Lymph % (Auto) [place] % (Auto) Lymph # [place] # Baso # Seg Neutrophils % Seg Neuts % (Manual) Lymphocytes % (Manual) Monocytes % (Manual) Eosinophils % (Manual) Basophils % (Manual) Nucleated RBC % Seg Neutrophils # Seg Neutrophils # Man Lymphocytes # (Manual) Monocytes # (Manual) Eosinophils # (Manual) Basophils # (Manual) PT INR Fibrinogen dRVVT Confirm Interp Factor V Activity POC ABG pH POC ABG pCO2 POC ABG pO2 ABG pO2 ABG HCO3 ABG Base Excess ABG Hemoglobin Oxyhemoglobin Sodium Potassium Chloride Carbon Dioxide BUN 42 H Creatinine Glucose 175 H POC Glucose 163 H 163 H Lactic Acid Calcium Phosphorus 2.40 L D Magnesium Direct Bilirubin AST ALT Alkaline Phosphatase Lactate Dehydrogenase Troponin T C-Reactive Protein Total Protein Albumin Prealbumin Triglycerides Cholesterol LDL Cholesterol Direct HDL Cholesterol PTH Intact Urine pH Urine WBC (Auto) Urine Creatinine Urine Total Protein Fluid Total Protein Vancomycin Trough Rheumatoid Factor Complement C4 Miscellaneous Test Crossmatch 01/07/17 01/08/17 01/08/17 23:40 05:00 05:00 WBC 27.4 H RBC 2.27 L Hgb 6.1 L Hct 20.4 L MCV MCH 27 L MCHC RDW 17.8 H Plt Count Lymph % (Auto) [place] % (Auto) Lymph # [place] # Baso # Seg Neutrophils % Seg Neuts % (Manual) Lymphocytes % (Manual) Monocytes % (Manual) Eosinophils % (Manual) Basophils % (Manual) Nucleated RBC % Seg Neutrophils # Seg Neutrophils # Man Lymphocytes # (Manual) Monocytes # (Manual) Eosinophils # (Manual) Basophils # (Manual) PT INR Fibrinogen dRVVT Confirm Interp Factor V Activity POC ABG pH POC ABG pCO2 POC ABG pO2 ABG pO2 ABG HCO3 ABG Base Excess ABG Hemoglobin Oxyhemoglobin Sodium Potassium Chloride Carbon Dioxide 16 L D BUN 62 H Creatinine 1.6 H D Glucose 103 H POC Glucose 135 H Lactic Acid Calcium Phosphorus Magnesium Direct Bilirubin AST ALT Alkaline Phosphatase Lactate Dehydrogenase Troponin T C-Reactive Protein Total Protein Albumin Prealbumin Triglycerides Cholesterol LDL Cholesterol Direct HDL Cholesterol PTH Intact Urine pH Urine WBC (Auto) Urine Creatinine Urine Total Protein Fluid Total Protein Vancomycin Trough Rheumatoid Factor Complement C4 Miscellaneous Test Crossmatch 01/08/17 01/08/17 01/08/17 05:25 10:37 10:37 WBC RBC Hgb Hct MCV MCH MCHC RDW Plt Count Lymph % (Auto) [place] % (Auto) Lymph # [place] # Baso # Seg Neutrophils % Seg Neuts % (Manual) Lymphocytes % (Manual) Monocytes % (Manual) Eosinophils % (Manual) Basophils % (Manual) Nucleated RBC % Seg Neutrophils # Seg Neutrophils # Man Lymphocytes # (Manual) Monocytes # (Manual) Eosinophils # (Manual) Basophils # (Manual) PT INR Fibrinogen dRVVT Confirm Interp Factor V Activity POC ABG pH POC ABG pCO2 POC ABG pO2 ABG pO2 ABG HCO3 ABG Base Excess ABG Hemoglobin Oxyhemoglobin Sodium Potassium Chloride Carbon Dioxide BUN Creatinine Glucose POC Glucose 106 H Lactic Acid Calcium Phosphorus Magnesium Direct Bilirubin AST ALT Alkaline Phosphatase Lactate Dehydrogenase Troponin T C-Reactive Protein 24.40 H Total Protein Albumin Prealbumin Triglycerides Cholesterol LDL Cholesterol Direct HDL Cholesterol PTH Intact Urine pH Urine WBC (Auto) Urine Creatinine Urine Total Protein Fluid Total Protein Vancomycin Trough Rheumatoid Factor Complement C4 Miscellaneous Test Crossmatch See Detail 01/08/17 01/08/17 01/08/17 10:37 11:33 15:15 WBC RBC Hgb Hct MCV MCH MCHC RDW Plt Count Lymph % (Auto) [place] % (Auto) Lymph # [place] # Baso # Seg Neutrophils % Seg Neuts % (Manual) Lymphocytes % (Manual) Monocytes % (Manual) Eosinophils % (Manual) Basophils % (Manual) Nucleated RBC % Seg Neutrophils # Seg Neutrophils # Man Lymphocytes # (Manual) Monocytes # (Manual) Eosinophils # (Manual) Basophils # (Manual) PT INR Fibrinogen dRVVT Confirm Interp Factor V Activity POC ABG pH POC ABG pCO2 POC ABG pO2 ABG pO2 ABG HCO3 ABG Base Excess ABG Hemoglobin Oxyhemoglobin Sodium Potassium Chloride Carbon Dioxide BUN Creatinine Glucose POC Glucose 157 H Lactic Acid 9.70 H* 9.10 H* Calcium Phosphorus Magnesium Direct Bilirubin AST ALT Alkaline Phosphatase Lactate Dehydrogenase Troponin T C-Reactive Protein Total Protein Albumin Prealbumin Triglycerides Cholesterol LDL Cholesterol Direct HDL Cholesterol PTH Intact Urine pH Urine WBC (Auto) Urine Creatinine Urine Total Protein Fluid Total Protein Vancomycin Trough Rheumatoid Factor Complement C4 Miscellaneous Test Crossmatch 01/08/17 01/08/17 01/09/17 17:19 23:12 04:40 WBC RBC Hgb Hct MCV MCH MCHC RDW Plt Count Lymph % (Auto) [place] % (Auto) Lymph # [place] # Baso # Seg Neutrophils % Seg Neuts % (Manual) Lymphocytes % (Manual) Monocytes % (Manual) Eosinophils % (Manual) Basophils % (Manual) Nucleated RBC % Seg Neutrophils # Seg Neutrophils # Man Lymphocytes # (Manual) Monocytes # (Manual) Eosinophils # (Manual) Basophils # (Manual) PT INR Fibrinogen dRVVT Confirm Interp Factor V Activity POC ABG pH POC ABG pCO2 POC ABG pO2 ABG pO2 ABG HCO3 ABG Base Excess ABG Hemoglobin Oxyhemoglobin Sodium 147 H Potassium Chloride Carbon Dioxide BUN 82 H Creatinine 1.8 H Glucose 137 H POC Glucose 164 H 157 H Lactic Acid Calcium Phosphorus Magnesium Direct Bilirubin AST ALT Alkaline Phosphatase Lactate Dehydrogenase Troponin T C-Reactive Protein Total Protein Albumin Prealbumin Triglycerides Cholesterol LDL Cholesterol Direct HDL Cholesterol PTH Intact Urine pH Urine WBC (Auto) Urine Creatinine Urine Total Protein Fluid Total Protein Vancomycin Trough Rheumatoid Factor Complement C4 Miscellaneous Test Crossmatch 01/09/17 01/09/17 01/09/17 05:42 08:22 10:57 WBC RBC Hgb Hct MCV MCH MCHC RDW Plt Count Lymph % (Auto) [place] % (Auto) Lymph # [place] # Baso # Seg Neutrophils % Seg Neuts % (Manual) Lymphocytes % (Manual) Monocytes % (Manual) Eosinophils % (Manual) Basophils % (Manual) Nucleated RBC % Seg Neutrophils # Seg Neutrophils # Man Lymphocytes # (Manual) Monocytes # (Manual) Eosinophils # (Manual) Basophils # (Manual) PT INR Fibrinogen dRVVT Confirm Interp Factor V Activity POC ABG pH POC ABG pCO2 POC ABG pO2 ABG pO2 ABG HCO3 ABG Base Excess ABG Hemoglobin Oxyhemoglobin Sodium Potassium Chloride Carbon Dioxide BUN Creatinine Glucose POC Glucose 156 H 122 H Lactic Acid 2.30 H* Calcium Phosphorus Magnesium Direct Bilirubin AST ALT Alkaline Phosphatase Lactate Dehydrogenase Troponin T C-Reactive Protein Total Protein Albumin Prealbumin Triglycerides Cholesterol LDL Cholesterol Direct HDL Cholesterol PTH Intact Urine pH Urine WBC (Auto) Urine Creatinine Urine Total Protein Fluid Total Protein Vancomycin Trough Rheumatoid Factor Complement C4 Miscellaneous Test Crossmatch 01/09/17 01/09/17 01/09/17 13:30 17:14 18:45 WBC RBC Hgb Hct MCV MCH MCHC RDW Plt Count Lymph % (Auto) [place] % (Auto) Lymph # [place] # Baso # Seg Neutrophils % Seg Neuts % (Manual) Lymphocytes % (Manual) Monocytes % (Manual) Eosinophils % (Manual) Basophils % (Manual) Nucleated RBC % Seg Neutrophils # Seg Neutrophils # Man Lymphocytes # (Manual) Monocytes # (Manual) Eosinophils # (Manual) Basophils # (Manual) PT INR Fibrinogen dRVVT Confirm Interp Factor V Activity POC ABG pH POC ABG pCO2 POC ABG pO2 ABG pO2 ABG HCO3 ABG Base Excess ABG Hemoglobin Oxyhemoglobin Sodium Potassium Chloride Carbon Dioxide BUN Creatinine Glucose POC Glucose 127 H Lactic Acid Calcium Phosphorus Magnesium Direct Bilirubin AST ALT Alkaline Phosphatase Lactate Dehydrogenase Troponin T C-Reactive Protein 24.70 H Total Protein Albumin Prealbumin Triglycerides Cholesterol LDL Cholesterol Direct HDL Cholesterol PTH Intact Urine pH Urine WBC (Auto) Urine Creatinine Urine Total Protein Fluid Total Protein Vancomycin Trough Rheumatoid Factor Complement C4 Miscellaneous Test Flexitest 1 H Crossmatch 01/10/17 01/10/17 01/10/17 01:21 04:00 04:00 WBC 18.1 H RBC 3.22 L Hgb 8.8 L Hct 27.0 L D MCV MCH 27 L MCHC RDW 17.0 H Plt Count Lymph % (Auto) [place] % (Auto) Lymph # [place] # Baso # Seg Neutrophils % Seg Neuts % (Manual) Lymphocytes % (Manual) Monocytes % (Manual) Eosinophils % (Manual) Basophils % (Manual) Nucleated RBC % Seg Neutrophils # Seg Neutrophils # Man Lymphocytes # (Manual) Monocytes # (Manual) Eosinophils # (Manual) Basophils # (Manual) PT INR Fibrinogen dRVVT Confirm Interp Factor V Activity POC ABG pH POC ABG pCO2 POC ABG pO2 ABG pO2 ABG HCO3 ABG Base Excess ABG Hemoglobin Oxyhemoglobin Sodium Potassium Chloride Carbon Dioxide BUN 59 H Creatinine 1.3 H Glucose 122 H POC Glucose 160 H Lactic Acid Calcium Phosphorus Magnesium Direct Bilirubin AST ALT Alkaline Phosphatase Lactate Dehydrogenase Troponin T C-Reactive Protein Total Protein Albumin Prealbumin Triglycerides Cholesterol LDL Cholesterol Direct HDL Cholesterol PTH Intact Urine pH Urine WBC (Auto) Urine Creatinine Urine Total Protein Fluid Total Protein Vancomycin Trough Rheumatoid Factor Complement C4 Miscellaneous Test Crossmatch 01/10/17 01/10/17 01/10/17 05:36 12:14 17:55 WBC RBC Hgb Hct MCV MCH MCHC RDW Plt Count Lymph % (Auto) [place] % (Auto) Lymph # [place] # Baso # Seg Neutrophils % Seg Neuts % (Manual) Lymphocytes % (Manual) Monocytes % (Manual) Eosinophils % (Manual) Basophils % (Manual) Nucleated RBC % Seg Neutrophils # Seg Neutrophils # Man Lymphocytes # (Manual) Monocytes # (Manual) Eosinophils # (Manual) Basophils # (Manual) PT INR Fibrinogen dRVVT Confirm Interp Factor V Activity POC ABG pH POC ABG pCO2 POC ABG pO2 ABG pO2 ABG HCO3 ABG Base Excess ABG Hemoglobin Oxyhemoglobin Sodium Potassium Chloride Carbon Dioxide BUN Creatinine Glucose POC Glucose 163 H 120 H 144 H Lactic Acid Calcium Phosphorus Magnesium Direct Bilirubin AST ALT Alkaline Phosphatase Lactate Dehydrogenase Troponin T C-Reactive Protein Total Protein Albumin Prealbumin Triglycerides Cholesterol LDL Cholesterol Direct HDL Cholesterol PTH Intact Urine pH Urine WBC (Auto) Urine Creatinine Urine Total Protein Fluid Total Protein Vancomycin Trough Rheumatoid Factor Complement C4 Miscellaneous Test Crossmatch 01/11/17 01/11/17 01/11/17 00:09 04:00 04:00 WBC 15.8 H RBC 3.04 L Hgb 8.2 L Hct 25.5 L MCV MCH 27 L MCHC RDW 17.3 H Plt Count Lymph % (Auto) [place] % (Auto) Lymph # [place] # Baso # Seg Neutrophils % Seg Neuts % (Manual) Lymphocytes % (Manual) Monocytes % (Manual) Eosinophils % (Manual) Basophils % (Manual) Nucleated RBC % Seg Neutrophils # Seg Neutrophils # Man Lymphocytes # (Manual) Monocytes # (Manual) Eosinophils # (Manual) Basophils # (Manual) PT INR Fibrinogen dRVVT Confirm Interp Factor V Activity POC ABG pH POC ABG pCO2 POC ABG pO2 ABG pO2 ABG HCO3 ABG Base Excess ABG Hemoglobin Oxyhemoglobin Sodium Potassium Chloride Carbon Dioxide BUN 78 H Creatinine 1.6 H Glucose 109 H POC Glucose 122 H Lactic Acid Calcium Phosphorus Magnesium Direct Bilirubin AST ALT Alkaline Phosphatase Lactate Dehydrogenase Troponin T C-Reactive Protein Total Protein Albumin Prealbumin Triglycerides Cholesterol LDL Cholesterol Direct HDL Cholesterol PTH Intact Urine pH Urine WBC (Auto) Urine Creatinine Urine Total Protein Fluid Total Protein Vancomycin Trough Rheumatoid Factor Complement C4 Miscellaneous Test Crossmatch 01/11/17 01/11/17 01/11/17 12:46 18:23 23:42 WBC RBC Hgb Hct MCV MCH MCHC RDW Plt Count Lymph % (Auto) [place] % (Auto) Lymph # [place] # Baso # Seg Neutrophils % Seg Neuts % (Manual) Lymphocytes % (Manual) Monocytes % (Manual) Eosinophils % (Manual) Basophils % (Manual) Nucleated RBC % Seg Neutrophils # Seg Neutrophils # Man Lymphocytes # (Manual) Monocytes # (Manual) Eosinophils # (Manual) Basophils # (Manual) PT INR Fibrinogen dRVVT Confirm Interp Factor V Activity POC ABG pH POC ABG pCO2 POC ABG pO2 ABG pO2 ABG HCO3 ABG Base Excess ABG Hemoglobin Oxyhemoglobin Sodium Potassium Chloride Carbon Dioxide BUN Creatinine Glucose POC Glucose 148 H 125 H 124 H Lactic Acid Calcium Phosphorus Magnesium Direct Bilirubin AST ALT Alkaline Phosphatase Lactate Dehydrogenase Troponin T C-Reactive Protein Total Protein Albumin Prealbumin Triglycerides Cholesterol LDL Cholesterol Direct HDL Cholesterol PTH Intact Urine pH Urine WBC (Auto) Urine Creatinine Urine Total Protein Fluid Total Protein Vancomycin Trough Rheumatoid Factor Complement C4 Miscellaneous Test Crossmatch 01/12/17 01/12/17 01/12/17 04:30 04:30 05:47 WBC 15.8 H RBC 3.31 L Hgb 8.9 L Hct 27.9 L MCV MCH 27 L MCHC RDW 17.4 H Plt Count Lymph % (Auto) [place] % (Auto) Lymph # [place] # Baso # Seg Neutrophils % Seg Neuts % (Manual) Lymphocytes % (Manual) Monocytes % (Manual) Eosinophils % (Manual) Basophils % (Manual) Nucleated RBC % Seg Neutrophils # Seg Neutrophils # Man Lymphocytes # (Manual) Monocytes # (Manual) Eosinophils # (Manual) Basophils # (Manual) PT INR Fibrinogen dRVVT Confirm Interp Factor V Activity POC ABG pH POC ABG pCO2 POC ABG pO2 ABG pO2 ABG HCO3 ABG Base Excess ABG Hemoglobin Oxyhemoglobin Sodium Potassium Chloride Carbon Dioxide BUN 57 H Creatinine Glucose 121 H POC Glucose 110 H Lactic Acid Calcium Phosphorus 2.10 L Magnesium Direct Bilirubin AST ALT Alkaline Phosphatase Lactate Dehydrogenase Troponin T C-Reactive Protein Total Protein Albumin Prealbumin Triglycerides Cholesterol LDL Cholesterol Direct HDL Cholesterol PTH Intact Urine pH Urine WBC (Auto) Urine Creatinine Urine Total Protein Fluid Total Protein Vancomycin Trough Rheumatoid Factor Complement C4 Miscellaneous Test Crossmatch 01/12/17 01/12/17 01/12/17 11:35 17:45 23:14 WBC RBC Hgb Hct MCV MCH MCHC RDW Plt Count Lymph % (Auto) [place] % (Auto) Lymph # [place] # Baso # Seg Neutrophils % Seg Neuts % (Manual) Lymphocytes % (Manual) Monocytes % (Manual) Eosinophils % (Manual) Basophils % (Manual) Nucleated RBC % Seg Neutrophils # Seg Neutrophils # Man Lymphocytes # (Manual) Monocytes # (Manual) Eosinophils # (Manual) Basophils # (Manual) PT INR Fibrinogen dRVVT Confirm Interp Factor V Activity POC ABG pH POC ABG pCO2 POC ABG pO2 ABG pO2 ABG HCO3 ABG Base Excess ABG Hemoglobin Oxyhemoglobin Sodium Potassium Chloride Carbon Dioxide BUN Creatinine Glucose POC Glucose 146 H 117 H 123 H Lactic Acid Calcium Phosphorus Magnesium Direct Bilirubin AST ALT Alkaline Phosphatase Lactate Dehydrogenase Troponin T C-Reactive Protein Total Protein Albumin Prealbumin Triglycerides Cholesterol LDL Cholesterol Direct HDL Cholesterol PTH Intact Urine pH Urine WBC (Auto) Urine Creatinine Urine Total Protein Fluid Total Protein Vancomycin Trough Rheumatoid Factor Complement C4 Miscellaneous Test Crossmatch 01/13/17 01/13/1701/13/17 05:32 06:00 12:10 WBC RBC Hgb Hct MCV MCH MCHC RDW Plt Count Lymph % (Auto) [place] % (Auto) Lymph # [place] # Baso # Seg Neutrophils % Seg Neuts % (Manual) Lymphocytes % (Manual) Monocytes % (Manual) Eosinophils % (Manual) Basophils % (Manual) Nucleated RBC % Seg Neutrophils # Seg Neutrophils # Man Lymphocytes # (Manual) Monocytes # (Manual) Eosinophils # (Manual) Basophils # (Manual) PT INR Fibrinogen dRVVT Confirm Interp Factor V Activity POC ABG pH POC ABG pCO2 POC ABG pO2 ABG pO2 ABG HCO3 ABG Base Excess ABG Hemoglobin Oxyhemoglobin Sodium Potassium Chloride Carbon Dioxide BUN 80 H Creatinine 1.4 H Glucose 106 H POC Glucose 106 H Lactic Acid Calcium Phosphorus Magnesium Direct Bilirubin AST ALT Alkaline Phosphatase Lactate Dehydrogenase Troponin T C-Reactive Protein Total Protein Albumin Prealbumin Triglycerides Cholesterol LDL Cholesterol Direct HDL Cholesterol PTH Intact Urine pH Urine WBC (Auto) Urine Creatinine Urine Total Protein Fluid Total Protein 3.0 L Vancomycin Trough Rheumatoid Factor Complement C4 Miscellaneous Test Crossmatch 01/13/17 01/13/17 01/13/17 12:17 15:50 17:30 WBC RBC Hgb Hct MCV MCH MCHC RDW Plt Count Lymph % (Auto) [place] % (Auto) Lymph # [place] # Baso # Seg Neutrophils % Seg Neuts % (Manual) Lymphocytes % (Manual) Monocytes % (Manual) Eosinophils % (Manual) Basophils % (Manual) Nucleated RBC % Seg Neutrophils # Seg Neutrophils # Man Lymphocytes # (Manual) Monocytes # (Manual) Eosinophils # (Manual) Basophils # (Manual) PT 15.4 H INR 1.16 H Fibrinogen dRVVT Confirm Interp Factor V Activity POC ABG pH POC ABG pCO2 POC ABG pO2 ABG pO2 ABG HCO3 ABG Base Excess ABG Hemoglobin Oxyhemoglobin Sodium Potassium Chloride Carbon Dioxide BUN Creatinine Glucose POC Glucose 168 H 110 H Lactic Acid Calcium Phosphorus Magnesium Direct Bilirubin AST ALT Alkaline Phosphatase Lactate Dehydrogenase Troponin T C-Reactive Protein Total Protein Albumin Prealbumin Triglycerides Cholesterol LDL Cholesterol Direct HDL Cholesterol PTH Intact Urine pH Urine WBC (Auto) Urine Creatinine Urine Total Protein Fluid Total Protein Vancomycin Trough Rheumatoid Factor Complement C4 Miscellaneous Test Crossmatch 01/13/17 01/14/17 01/14/17 23:42 05:24 05:30 WBC RBC Hgb Hct MCV MCH MCHC RDW Plt Count Lymph % (Auto) [place] % (Auto) Lymph # [place] # Baso # Seg Neutrophils % Seg Neuts % (Manual) Lymphocytes % (Manual) Monocytes % (Manual) Eosinophils % (Manual) Basophils % (Manual) Nucleated RBC % Seg Neutrophils # Seg Neutrophils # Man Lymphocytes # (Manual) Monocytes # (Manual) Eosinophils # (Manual) Basophils # (Manual) PT INR Fibrinogen dRVVT Confirm Interp Factor V Activity POC ABG pH POC ABG pCO2 POC ABG pO2 ABG pO2 ABG HCO3 ABG Base Excess ABG Hemoglobin Oxyhemoglobin Sodium Potassium Chloride Carbon Dioxide BUN 58 H Creatinine Glucose 114 H POC Glucose 155 H 121 H Lactic Acid Calcium Phosphorus Magnesium Direct Bilirubin AST ALT Alkaline Phosphatase Lactate Dehydrogenase Troponin T C-Reactive Protein Total Protein Albumin Prealbumin Triglycerides Cholesterol LDL Cholesterol Direct HDL Cholesterol PTH Intact Urine pH Urine WBC (Auto) Urine Creatinine Urine Total Protein Fluid Total Protein Vancomycin Trough Rheumatoid Factor Complement C4 Miscellaneous Test Crossmatch 01/14/17 01/14/17 01/15/17 12:48 17:36 00:15 WBC RBC Hgb Hct MCV MCH MCHC RDW Plt Count Lymph % (Auto) [place] % (Auto) Lymph # [place] # Baso # Seg Neutrophils % Seg Neuts % (Manual) Lymphocytes % (Manual) Monocytes % (Manual) Eosinophils % (Manual) Basophils % (Manual) Nucleated RBC % Seg Neutrophils # Seg Neutrophils # Man Lymphocytes # (Manual) Monocytes # (Manual) Eosinophils # (Manual) Basophils # (Manual) PT INR Fibrinogen dRVVT Confirm Interp Factor V Activity POC ABG pH POC ABG pCO2 POC ABG pO2 ABG pO2 ABG HCO3 ABG Base Excess ABG Hemoglobin Oxyhemoglobin Sodium Potassium Chloride Carbon Dioxide BUN Creatinine Glucose POC Glucose 130 H 135 H 132 H Lactic Acid Calcium Phosphorus Magnesium Direct Bilirubin AST ALT Alkaline Phosphatase Lactate Dehydrogenase Troponin T C-Reactive Protein Total Protein Albumin Prealbumin Triglycerides Cholesterol LDL Cholesterol Direct HDL Cholesterol PTH Intact Urine pH Urine WBC (Auto) Urine Creatinine Urine Total Protein Fluid Total Protein Vancomycin Trough Rheumatoid Factor Complement C4 Miscellaneous Test Crossmatch 01/15/17 01/15/17 01/15/17 05:01 11:55 12:45 WBC 16.2 H RBC 3.00 L Hgb 8.1 L Hct 25.4 L MCV MCH 27 L MCHC RDW 17.6 H Plt Count Lymph % (Auto) 11.7 L [place] % (Auto) 7.8 H Lymph # [place] # 1.3 H Baso # Seg Neutrophils % 80.1 H Seg Neuts % (Manual) Lymphocytes % (Manual) Monocytes % (Manual) Eosinophils % (Manual) Basophils % (Manual) Nucleated RBC % Seg Neutrophils # 13.0 H Seg Neutrophils # Man Lymphocytes # (Manual) Monocytes # (Manual) Eosinophils # (Manual) Basophils # (Manual) PT INR Fibrinogen dRVVT Confirm Interp Factor V Activity POC ABG pH POC ABG pCO2 POC ABG pO2 ABG pO2 ABG HCO3 ABG Base Excess ABG Hemoglobin Oxyhemoglobin Sodium Potassium Chloride Carbon Dioxide BUN Creatinine Glucose POC Glucose 126 H 125 H Lactic Acid Calcium Phosphorus Magnesium Direct Bilirubin AST ALT Alkaline Phosphatase Lactate Dehydrogenase Troponin T C-Reactive Protein Total Protein Albumin Prealbumin Triglycerides Cholesterol LDL Cholesterol Direct HDL Cholesterol PTH Intact Urine pH Urine WBC (Auto) Urine Creatinine Urine Total Protein Fluid Total Protein Vancomycin Trough Rheumatoid Factor Complement C4 Miscellaneous Test Crossmatch 01/15/17 01/15/17 01/15/17 12:45 17:31 23:39 WBC RBC Hgb Hct MCV MCH MCHC RDW Plt Count Lymph % (Auto) [place] % (Auto) Lymph # [place] # Baso # Seg Neutrophils % Seg Neuts % (Manual) Lymphocytes % (Manual) Monocytes % (Manual) Eosinophils % (Manual) Basophils % (Manual) Nucleated RBC % Seg Neutrophils # Seg Neutrophils # Man Lymphocytes # (Manual) Monocytes # (Manual) Eosinophils # (Manual) Basophils # (Manual) PT INR Fibrinogen dRVVT Confirm Interp Factor V Activity POC ABG pH POC ABG pCO2 POC ABG pO2 ABG pO2 ABG HCO3 ABG Base Excess ABG Hemoglobin Oxyhemoglobin Sodium 136 L Potassium Chloride Carbon Dioxide BUN 87 H Creatinine 1.7 H Glucose 108 H POC Glucose 129 H 112 H Lactic Acid Calcium Phosphorus Magnesium Direct Bilirubin AST ALT Alkaline Phosphatase Lactate Dehydrogenase Troponin T C-Reactive Protein Total Protein Albumin Prealbumin Triglycerides Cholesterol LDL Cholesterol Direct HDL Cholesterol PTH Intact Urine pH Urine WBC (Auto) Urine Creatinine Urine Total Protein Fluid Total Protein Vancomycin Trough Rheumatoid Factor Complement C4 Miscellaneous Test Crossmatch 01/16/17 01/16/17 01/16/17 05:23 11:42 12:32 WBC RBC Hgb Hct MCV MCH MCHC RDW Plt Count Lymph % (Auto) [place] % (Auto) Lymph # [place] # Baso # Seg Neutrophils % Seg Neuts % (Manual) Lymphocytes % (Manual) Monocytes % (Manual) Eosinophils % (Manual) Basophils % (Manual) Nucleated RBC % Seg Neutrophils # Seg Neutrophils # Man Lymphocytes # (Manual) Monocytes # (Manual) Eosinophils # (Manual) Basophils # (Manual) PT INR Fibrinogen dRVVT Confirm Interp Factor V Activity POC ABG pH 7.499 H POC ABG pCO2 30.9 L POC ABG pO2 51 L ABG pO2 ABG HCO3 ABG Base Excess ABG Hemoglobin Oxyhemoglobin Sodium Potassium Chloride Carbon Dioxide BUN Creatinine Glucose POC Glucose 118 H 133 H Lactic Acid Calcium Phosphorus Magnesium Direct Bilirubin AST ALT Alkaline Phosphatase Lactate Dehydrogenase Troponin T C-Reactive Protein Total Protein Albumin Prealbumin Triglycerides Cholesterol LDL Cholesterol Direct HDL Cholesterol PTH Intact Urine pH Urine WBC (Auto) Urine Creatinine Urine Total Protein Fluid Total Protein Vancomycin Trough Rheumatoid Factor Complement C4 Miscellaneous Test Crossmatch 01/16/17 01/16/17 01/16/17 17:52 23:57 Unknown WBC RBC Hgb Hct MCV MCH MCHC RDW Plt Count Lymph % (Auto) [place] % (Auto) Lymph # [place] # Baso # Seg Neutrophils % Seg Neuts % (Manual) Lymphocytes % (Manual) Monocytes % (Manual) Eosinophils % (Manual) Basophils % (Manual) Nucleated RBC % Seg Neutrophils # Seg Neutrophils # Man Lymphocytes # (Manual) Monocytes # (Manual) Eosinophils # (Manual) Basophils # (Manual) PT INR Fibrinogen dRVVT Confirm Interp Factor V Activity POC ABG pH POC ABG pCO2 POC ABG pO2 ABG pO2 ABG HCO3 ABG Base Excess ABG Hemoglobin Oxyhemoglobin Sodium 135 L Potassium Chloride Carbon Dioxide BUN 101 H Creatinine 1.8 H Glucose 117 H POC Glucose 130 H 143 H Lactic Acid Calcium Phosphorus 5.80 H Magnesium Direct Bilirubin AST ALT Alkaline Phosphatase Lactate Dehydrogenase Troponin T C-Reactive Protein Total Protein Albumin Prealbumin Triglycerides Cholesterol LDL Cholesterol Direct HDL Cholesterol PTH Intact Urine pH Urine WBC (Auto) Urine Creatinine Urine Total Protein Fluid Total Protein Vancomycin Trough Rheumatoid Factor Complement C4 Miscellaneous Test Crossmatch 01/17/17 01/17/17 01/17/17 05:30 05:46 11:49 WBC RBC Hgb Hct MCV MCH MCHC RDW Plt Count Lymph % (Auto) [place] % (Auto) Lymph # [place] # Baso # Seg Neutrophils % Seg Neuts % (Manual) Lymphocytes % (Manual) Monocytes % (Manual) Eosinophils % (Manual) Basophils % (Manual) Nucleated RBC % Seg Neutrophils # Seg Neutrophils # Man Lymphocytes # (Manual) Monocytes # (Manual) Eosinophils # (Manual) Basophils # (Manual) PT INR Fibrinogen dRVVT Confirm Interp Factor V Activity POC ABG pH POC ABG pCO2 POC ABG pO2 ABG pO2 ABG HCO3 ABG Base Excess ABG Hemoglobin Oxyhemoglobin Sodium 134 L Potassium Chloride 95.8 L Carbon Dioxide BUN 66 H Creatinine 1.3 H Glucose 138 H POC Glucose 147 H 124 H Lactic Acid Calcium Phosphorus Magnesium Direct Bilirubin AST ALT Alkaline Phosphatase 254 H Lactate Dehydrogenase Troponin T C-Reactive Protein Total Protein Albumin 1.3 L Prealbumin Triglycerides Cholesterol LDL Cholesterol Direct HDL Cholesterol PTH Intact Urine pH Urine WBC (Auto) Urine Creatinine Urine Total Protein Fluid Total Protein Vancomycin Trough Rheumatoid Factor Complement C4 Miscellaneous Test Crossmatch 01/17/17 01/17/17 01/18/17 17:30 23:41 05:15 WBC RBC Hgb Hct MCV MCH MCHC RDW Plt Count Lymph % (Auto) [place] % (Auto) Lymph # [place] # Baso # Seg Neutrophils % Seg Neuts % (Manual) Lymphocytes % (Manual) Monocytes % (Manual) Eosinophils % (Manual) Basophils % (Manual) Nucleated RBC % Seg Neutrophils # Seg Neutrophils # Man Lymphocytes # (Manual) Monocytes # (Manual) Eosinophils # (Manual) Basophils # (Manual) PT INR Fibrinogen dRVVT Confirm Interp Factor V Activity POC ABG pH POC ABG pCO2 POC ABG pO2 ABG pO2 ABG HCO3 ABG Base Excess ABG Hemoglobin Oxyhemoglobin Sodium Potassium Chloride Carbon Dioxide BUN 89 H Creatinine 1.7 H Glucose 118 H POC Glucose 137 H 119 H Lactic Acid Calcium Phosphorus Magnesium Direct Bilirubin AST ALT Alkaline Phosphatase Lactate Dehydrogenase Troponin T C-Reactive Protein Total Protein Albumin Prealbumin Triglycerides Cholesterol LDL Cholesterol Direct HDL Cholesterol PTH Intact Urine pH Urine WBC (Auto) Urine Creatinine Urine Total Protein Fluid Total Protein Vancomycin Trough Rheumatoid Factor Complement C4 Miscellaneous Test Crossmatch 01/18/17 01/18/17 01/18/17 05:19 12:16 18:11 WBC RBC Hgb Hct MCV MCH MCHC RDW Plt Count Lymph % (Auto) [place] % (Auto) Lymph # [place] # Baso # Seg Neutrophils % Seg Neuts % (Manual) Lymphocytes % (Manual) Monocytes % (Manual) Eosinophils % (Manual) Basophils % (Manual) Nucleated RBC % Seg Neutrophils # Seg Neutrophils # Man Lymphocytes # (Manual) Monocytes # (Manual) Eosinophils # (Manual) Basophils # (Manual) PT INR Fibrinogen dRVVT Confirm Interp Factor V Activity POC ABG pH POC ABG pCO2 POC ABG pO2 ABG pO2 ABG HCO3 ABG Base Excess ABG Hemoglobin Oxyhemoglobin Sodium Potassium Chloride Carbon Dioxide BUN Creatinine Glucose POC Glucose 134 H 188 H 113 H Lactic Acid Calcium Phosphorus Magnesium Direct Bilirubin AST ALT Alkaline Phosphatase Lactate Dehydrogenase Troponin T C-Reactive Protein Total Protein Albumin Prealbumin Triglycerides Cholesterol LDL Cholesterol Direct HDL Cholesterol PTH Intact Urine pH Urine WBC (Auto) Urine Creatinine Urine Total Protein Fluid Total Protein Vancomycin Trough Rheumatoid Factor Complement C4 Miscellaneous Test Crossmatch 01/19/17 01/19/17 01/19/17 00:00 05:30 05:36 WBC RBC Hgb Hct MCV MCH MCHC RDW Plt Count Lymph % (Auto) [place] % (Auto) Lymph # [place] # Baso # Seg Neutrophils % Seg Neuts % (Manual) Lymphocytes % (Manual) Monocytes % (Manual) Eosinophils % (Manual) Basophils % (Manual) Nucleated RBC % Seg Neutrophils # Seg Neutrophils # Man Lymphocytes # (Manual) Monocytes # (Manual) Eosinophils # (Manual) Basophils # (Manual) PT INR Fibrinogen dRVVT Confirm Interp Factor V Activity POC ABG pH POC ABG pCO2 POC ABG pO2 ABG pO2 ABG HCO3 ABG Base Excess ABG Hemoglobin Oxyhemoglobin Sodium Potassium Chloride Carbon Dioxide BUN 70 H Creatinine 1.5 H Glucose 121 H POC Glucose 137 H 155 H Lactic Acid Calcium Phosphorus 2.10 L D Magnesium Direct Bilirubin AST ALT Alkaline Phosphatase Lactate Dehydrogenase Troponin T C-Reactive Protein Total Protein Albumin Prealbumin Triglycerides Cholesterol LDL Cholesterol Direct HDL Cholesterol PTH Intact Urine pH Urine WBC (Auto) Urine Creatinine Urine Total Protein Fluid Total Protein Vancomycin Trough Rheumatoid Factor Complement C4 Miscellaneous Test Crossmatch 01/19/17 01/19/17 01/19/17 11:59 15:32 17:57 WBC RBC Hgb Hct MCV MCH MCHC RDW Plt Count Lymph % (Auto) [place] % (Auto) Lymph # [place] # Baso # Seg Neutrophils % Seg Neuts % (Manual) Lymphocytes % (Manual) Monocytes % (Manual) Eosinophils % (Manual) Basophils % (Manual) Nucleated RBC % Seg Neutrophils # Seg Neutrophils # Man Lymphocytes # (Manual) Monocytes # (Manual) Eosinophils # (Manual) Basophils # (Manual) PT INR Fibrinogen dRVVT Confirm Interp Factor V Activity POC ABG pH POC ABG pCO2 33.1 L POC ABG pO2 76 L ABG pO2 ABG HCO3 ABG Base Excess ABG Hemoglobin Oxyhemoglobin Sodium Potassium Chloride Carbon Dioxide BUN Creatinine Glucose POC Glucose 156 H 129 H Lactic Acid Calcium Phosphorus Magnesium Direct Bilirubin AST ALT Alkaline Phosphatase Lactate Dehydrogenase Troponin T C-Reactive Protein Total Protein Albumin Prealbumin Triglycerides Cholesterol LDL Cholesterol Direct HDL Cholesterol PTH Intact Urine pH Urine WBC (Auto) Urine Creatinine Urine Total Protein Fluid Total Protein Vancomycin Trough Rheumatoid Factor Complement C4 Miscellaneous Test Crossmatch 01/19/17 01/20/17 01/20/17 23:49 04:00 05:21 WBC RBC Hgb Hct MCV MCH MCHC RDW Plt Count Lymph % (Auto) [place] % (Auto) Lymph # [place] # Baso # Seg Neutrophils % Seg Neuts % (Manual) Lymphocytes % (Manual) Monocytes % (Manual) Eosinophils % (Manual) Basophils % (Manual) Nucleated RBC % Seg Neutrophils # Seg Neutrophils # Man Lymphocytes # (Manual) Monocytes # (Manual) Eosinophils # (Manual) Basophils # (Manual) PT INR Fibrinogen dRVVT Confirm Interp Factor V Activity POC ABG pH POC ABG pCO2 POC ABG pO2 ABG pO2 ABG HCO3 ABG Base Excess ABG Hemoglobin Oxyhemoglobin Sodium Potassium Chloride Carbon Dioxide BUN 96 H Creatinine 1.9 H Glucose 106 H POC Glucose 125 H 130 H Lactic Acid Calcium Phosphorus 2.40 L Magnesium Direct Bilirubin AST ALT Alkaline Phosphatase Lactate Dehydrogenase Troponin T C-Reactive Protein Total Protein Albumin Prealbumin Triglycerides Cholesterol LDL Cholesterol Direct HDL Cholesterol PTH Intact Urine pH Urine WBC (Auto) Urine Creatinine Urine Total Protein Fluid Total Protein Vancomycin Trough Rheumatoid Factor Complement C4 Miscellaneous Test Crossmatch 01/20/17 01/20/17 01/20/17 11:58 12:17 17:26 WBC RBC Hgb Hct MCV MCH MCHC RDW Plt Count Lymph % (Auto) [place] % (Auto) Lymph # [place] # Baso # Seg Neutrophils % Seg Neuts % (Manual) Lymphocytes % (Manual) Monocytes % (Manual) Eosinophils % (Manual) Basophils % (Manual) Nucleated RBC % Seg Neutrophils # Seg Neutrophils # Man Lymphocytes # (Manual) Monocytes # (Manual) Eosinophils # (Manual) Basophils # (Manual) PT INR Fibrinogen dRVVT Confirm Interp Factor V Activity POC ABG pH POC ABG pCO2 POC ABG pO2 70 L ABG pO2 ABG HCO3 ABG Base Excess ABG Hemoglobin Oxyhemoglobin Sodium Potassium Chloride Carbon Dioxide BUN Creatinine Glucose POC Glucose 118 H 154 H Lactic Acid Calcium Phosphorus Magnesium Direct Bilirubin AST ALT Alkaline Phosphatase Lactate Dehydrogenase Troponin T C-Reactive Protein Total Protein Albumin Prealbumin Triglycerides Cholesterol LDL Cholesterol Direct HDL Cholesterol PTH Intact Urine pH Urine WBC (Auto) Urine Creatinine Urine Total Protein Fluid Total Protein Vancomycin Trough Rheumatoid Factor Complement C4 Miscellaneous Test Crossmatch 01/21/17 01/21/17 01/21/17 04:00 04:56 11:46 WBC RBC Hgb Hct MCV MCH MCHC RDW Plt Count Lymph % (Auto) [place] % (Auto) Lymph # [place] # Baso # Seg Neutrophils % Seg Neuts % (Manual) Lymphocytes % (Manual) Monocytes % (Manual) Eosinophils % (Manual) Basophils % (Manual) Nucleated RBC % Seg Neutrophils # Seg Neutrophils # Man Lymphocytes # (Manual) Monocytes # (Manual) Eosinophils # (Manual) Basophils # (Manual) PT INR Fibrinogen dRVVT Confirm Interp Factor V Activity POC ABG pH POC ABG pCO2 POC ABG pO2 ABG pO2 ABG HCO3 ABG Base Excess ABG Hemoglobin Oxyhemoglobin Sodium Potassium 3.5 L Chloride 97.4 L Carbon Dioxide BUN 66 H Creatinine 1.4 H Glucose POC Glucose 116 H 106 H Lactic Acid Calcium Phosphorus 2.10 L Magnesium Direct Bilirubin AST ALT Alkaline Phosphatase Lactate Dehydrogenase Troponin T C-Reactive Protein Total Protein Albumin Prealbumin Triglycerides Cholesterol LDL Cholesterol Direct HDL Cholesterol PTH Intact Urine pH Urine WBC (Auto) Urine Creatinine Urine Total Protein Fluid Total Protein Vancomycin Trough Rheumatoid Factor Complement C4 Miscellaneous Test Crossmatch 01/21/17 01/21/17 01/22/17 17:25 23:49 05:35 WBC RBC Hgb Hct MCV MCH MCHC RDW Plt Count Lymph % (Auto) [place] % (Auto) Lymph # [place] # Baso # Seg Neutrophils % Seg Neuts % (Manual) Lymphocytes % (Manual) Monocytes % (Manual) Eosinophils % (Manual) Basophils % (Manual) Nucleated RBC % Seg Neutrophils # Seg Neutrophils # Man Lymphocytes # (Manual) Monocytes # (Manual) Eosinophils # (Manual) Basophils # (Manual) PT INR Fibrinogen dRVVT Confirm Interp Factor V Activity POC ABG pH POC ABG pCO2 POC ABG pO2 ABG pO2 ABG HCO3 ABG Base Excess ABG Hemoglobin Oxyhemoglobin Sodium Potassium Chloride Carbon Dioxide BUN Creatinine Glucose POC Glucose 106 H 133 H 107 H Lactic Acid Calcium Phosphorus Magnesium Direct Bilirubin AST ALT Alkaline Phosphatase Lactate Dehydrogenase Troponin T C-Reactive Protein Total Protein Albumin Prealbumin Triglycerides Cholesterol LDL Cholesterol Direct HDL Cholesterol PTH Intact Urine pH Urine WBC (Auto) Urine Creatinine Urine Total Protein Fluid Total Protein Vancomycin Trough Rheumatoid Factor Complement C4 Miscellaneous Test Crossmatch 01/22/17 01/22/17 01/22/17 07:20 07:20 11:31 WBC RBC 2.75 L Hgb 7.5 L Hct 22.7 L MCV MCH 27 L MCHC RDW 17.5 H Plt Count Lymph % (Auto) [place] % (Auto) Lymph # [place] # Baso # Seg Neutrophils % Seg Neuts % (Manual) Lymphocytes % (Manual) Monocytes % (Manual) Eosinophils % (Manual) Basophils % (Manual) Nucleated RBC % Seg Neutrophils # Seg Neutrophils # Man Lymphocytes # (Manual) Monocytes # (Manual) Eosinophils # (Manual) Basophils # (Manual) PT INR Fibrinogen dRVVT Confirm Interp Factor V Activity POC ABG pH POC ABG pCO2 POC ABG pO2 ABG pO2 ABG HCO3 ABG Base Excess ABG Hemoglobin Oxyhemoglobin Sodium Potassium 3.3 L Chloride Carbon Dioxide BUN 42 H Creatinine Glucose 105 H POC Glucose 124 H Lactic Acid Calcium Phosphorus 1.70 L Magnesium Direct Bilirubin AST ALT Alkaline Phosphatase Lactate Dehydrogenase Troponin T C-Reactive Protein Total Protein Albumin Prealbumin Triglycerides Cholesterol LDL Cholesterol Direct HDL Cholesterol PTH Intact Urine pH Urine WBC (Auto) Urine Creatinine Urine Total Protein Fluid Total Protein Vancomycin Trough Rheumatoid Factor Complement C4 Miscellaneous Test Crossmatch 01/22/17 01/22/17 01/23/17 17:16 23:35 05:35 WBC RBC Hgb Hct MCV MCH MCHC RDW Plt Count Lymph % (Auto) [place] % (Auto) Lymph # [place] # Baso # Seg Neutrophils % Seg Neuts % (Manual) Lymphocytes % (Manual) Monocytes % (Manual) Eosinophils % (Manual) Basophils % (Manual) Nucleated RBC % Seg Neutrophils # Seg Neutrophils # Man Lymphocytes # (Manual) Monocytes # (Manual) Eosinophils # (Manual) Basophils # (Manual) PT INR Fibrinogen dRVVT Confirm Interp Factor V Activity POC ABG pH POC ABG pCO2 POC ABG pO2 ABG pO2 ABG HCO3 ABG Base Excess ABG Hemoglobin Oxyhemoglobin Sodium Potassium Chloride Carbon Dioxide BUN Creatinine Glucose POC Glucose 135 H 120 H 111 H Lactic Acid Calcium Phosphorus Magnesium Direct Bilirubin AST ALT Alkaline Phosphatase Lactate Dehydrogenase Troponin T C-Reactive Protein Total Protein Albumin Prealbumin Triglycerides Cholesterol LDL Cholesterol Direct HDL Cholesterol PTH Intact Urine pH Urine WBC (Auto) Urine Creatinine Urine Total Protein Fluid Total Protein Vancomycin Trough Rheumatoid Factor Complement C4 Miscellaneous Test Crossmatch 01/23/17 01/23/17 01/23/17 06:10 17:27 23:44 WBC RBC Hgb Hct MCV MCH MCHC RDW Plt Count Lymph % (Auto) [place] % (Auto) Lymph # [place] # Baso # Seg Neutrophils % Seg Neuts % (Manual) Lymphocytes % (Manual) Monocytes % (Manual) Eosinophils % (Manual) Basophils % (Manual) Nucleated RBC % Seg Neutrophils # Seg Neutrophils # Man Lymphocytes # (Manual) Monocytes # (Manual) Eosinophils # (Manual) Basophils # (Manual) PT INR Fibrinogen dRVVT Confirm Interp Factor V Activity POC ABG pH POC ABG pCO2 POC ABG pO2 ABG pO2 ABG HCO3 ABG Base Excess ABG Hemoglobin Oxyhemoglobin Sodium Potassium 3.3 L Chloride Carbon Dioxide BUN 66 H Creatinine 1.3 H Glucose 109 H POC Glucose 120 H 115 H Lactic Acid Calcium Phosphorus 2.20 L D Magnesium Direct Bilirubin AST ALT Alkaline Phosphatase Lactate Dehydrogenase Troponin T C-Reactive Protein Total Protein Albumin Prealbumin Triglycerides Cholesterol LDL Cholesterol Direct HDL Cholesterol PTH Intact Urine pH Urine WBC (Auto) Urine Creatinine Urine Total Protein Fluid Total Protein Vancomycin Trough Rheumatoid Factor Complement C4 Miscellaneous Test Crossmatch 01/24/17 01/24/17 01/24/17 05:19 05:50 12:19 WBC RBC Hgb Hct MCV MCH MCHC RDW Plt Count Lymph % (Auto) [place] % (Auto) Lymph # [place] # Baso # Seg Neutrophils % Seg Neuts % (Manual) Lymphocytes % (Manual) Monocytes % (Manual) Eosinophils % (Manual) Basophils % (Manual) Nucleated RBC % Seg Neutrophils # Seg Neutrophils # Man Lymphocytes # (Manual) Monocytes # (Manual) Eosinophils # (Manual) Basophils # (Manual) PT INR Fibrinogen dRVVT Confirm Interp Factor V Activity POC ABG pH POC ABG pCO2 POC ABG pO2 ABG pO2 ABG HCO3 ABG Base Excess ABG Hemoglobin Oxyhemoglobin Sodium Potassium Chloride Carbon Dioxide BUN 47 H Creatinine Glucose 117 H POC Glucose 126 H 119 H Lactic Acid Calcium Phosphorus 2.30 L Magnesium 1.60 L Direct Bilirubin AST ALT Alkaline Phosphatase Lactate Dehydrogenase Troponin T C-Reactive Protein Total Protein Albumin Prealbumin Triglycerides Cholesterol LDL Cholesterol Direct HDL Cholesterol PTH Intact Urine pH Urine WBC (Auto) Urine Creatinine Urine Total Protein Fluid Total Protein Vancomycin Trough Rheumatoid Factor Complement C4 Miscellaneous Test Crossmatch 01/24/17 01/25/17 01/25/17 17:08 00:37 04:00 WBC RBC Hgb Hct MCV MCH MCHC RDW Plt Count Lymph % (Auto) [place] % (Auto) Lymph # [place] # Baso # Seg Neutrophils % Seg Neuts % (Manual) Lymphocytes % (Manual) Monocytes % (Manual) Eosinophils % (Manual) Basophils % (Manual) Nucleated RBC % Seg Neutrophils # Seg Neutrophils # Man Lymphocytes # (Manual) Monocytes # (Manual) Eosinophils # (Manual) Basophils # (Manual) PT INR Fibrinogen dRVVT Confirm Interp Factor V Activity POC ABG pH POC ABG pCO2 POC ABG pO2 ABG pO2 ABG HCO3 ABG Base Excess ABG Hemoglobin Oxyhemoglobin Sodium Potassium Chloride Carbon Dioxide BUN 72 H Creatinine 1.3 H Glucose POC Glucose 127 H 110 H Lactic Acid Calcium Phosphorus Magnesium Direct Bilirubin AST ALT Alkaline Phosphatase Lactate Dehydrogenase Troponin T C-Reactive Protein Total Protein Albumin Prealbumin Triglycerides Cholesterol LDL Cholesterol Direct HDL Cholesterol PTH Intact Urine pH Urine WBC (Auto) Urine Creatinine Urine Total Protein Fluid Total Protein Vancomycin Trough Rheumatoid Factor Complement C4 Miscellaneous Test Crossmatch 01/25/17 01/25/17 01/25/17 04:00 11:15 13:05 WBC RBC 2.49 L Hgb 6.7 L Hct 20.9 L MCV MCH 27 L MCHC RDW 18.8 H Plt Count Lymph % (Auto) [place] % (Auto) 10.1 H Lymph # [place] # 1.0 H Baso # Seg Neutrophils % Seg Neuts % (Manual) Lymphocytes % (Manual) Monocytes % (Manual) Eosinophils % (Manual) Basophils % (Manual) Nucleated RBC % Seg Neutrophils # Seg Neutrophils # Man Lymphocytes # (Manual) Monocytes # (Manual) Eosinophils # (Manual) Basophils # (Manual) PT INR Fibrinogen dRVVT Confirm Interp Factor V Activity POC ABG pH POC ABG pCO2 POC ABG pO2 ABG pO2 ABG HCO3 ABG Base Excess ABG Hemoglobin Oxyhemoglobin Sodium Potassium Chloride Carbon Dioxide BUN Creatinine Glucose POC Glucose 128 H Lactic Acid Calcium Phosphorus Magnesium Direct Bilirubin AST ALT Alkaline Phosphatase Lactate Dehydrogenase Troponin T C-Reactive Protein Total Protein Albumin Prealbumin Triglycerides Cholesterol LDL Cholesterol Direct HDL Cholesterol PTH Intact Urine pH Urine WBC (Auto) Urine Creatinine Urine Total Protein Fluid Total Protein Vancomycin Trough Rheumatoid Factor Complement C4 Miscellaneous Test Crossmatch See Detail 01/25/17 01/25/17 01/26/17 18:02 23:07 01:20 WBC RBC Hgb Hct MCV MCH MCHC RDW Plt Count Lymph % (Auto) [place] % (Auto) Lymph # [place] # Baso # Seg Neutrophils % Seg Neuts % (Manual) Lymphocytes % (Manual) Monocytes % (Manual) Eosinophils % (Manual) Basophils % (Manual) Nucleated RBC % Seg Neutrophils # Seg Neutrophils # Man Lymphocytes # (Manual) Monocytes # (Manual) Eosinophils # (Manual) Basophils # (Manual) PT INR Fibrinogen dRVVT Confirm Interp Factor V Activity POC ABG pH POC ABG pCO2 POC ABG pO2 ABG pO2 ABG HCO3 ABG Base Excess ABG Hemoglobin Oxyhemoglobin Sodium Potassium Chloride Carbon Dioxide BUN Creatinine Glucose POC Glucose 120 H 123 H 112 H Lactic Acid Calcium Phosphorus Magnesium Direct Bilirubin AST ALT Alkaline Phosphatase Lactate Dehydrogenase Troponin T C-Reactive Protein Total Protein Albumin Prealbumin Triglycerides Cholesterol LDL Cholesterol Direct HDL Cholesterol PTH Intact Urine pH Urine WBC (Auto) Urine Creatinine Urine Total Protein Fluid Total Protein Vancomycin Trough Rheumatoid Factor Complement C4 Miscellaneous Test Crossmatch 01/26/17 01/26/17 01/26/17 04:20 04:20 11:23 WBC 13.1 H RBC 3.28 L Hgb 9.0 L Hct 26.9 L D MCV MCH 27 L MCHC RDW 17.2 H Plt Count Lymph % (Auto) [place] % (Auto) 9.0 H Lymph # [place] # 1.2 H Baso # Seg Neutrophils % 73.1 H Seg Neuts % (Manual) Lymphocytes % (Manual) Monocytes % (Manual) Eosinophils % (Manual) Basophils % (Manual) Nucleated RBC % Seg Neutrophils # 9.6 H Seg Neutrophils # Man Lymphocytes # (Manual) Monocytes # (Manual) Eosinophils # (Manual) Basophils # (Manual) PT INR Fibrinogen dRVVT Confirm Interp Factor V Activity POC ABG pH POC ABG pCO2 POC ABG pO2 ABG pO2 ABG HCO3 ABG Base Excess ABG Hemoglobin Oxyhemoglobin Sodium Potassium Chloride Carbon Dioxide BUN 51 H Creatinine Glucose 117 H POC Glucose 125 H Lactic Acid Calcium Phosphorus Magnesium Direct Bilirubin AST ALT Alkaline Phosphatase Lactate Dehydrogenase Troponin T C-Reactive Protein Total Protein Albumin Prealbumin Triglycerides Cholesterol LDL Cholesterol Direct HDL Cholesterol PTH Intact Urine pH Urine WBC (Auto) Urine Creatinine Urine Total Protein Fluid Total Protein Vancomycin Trough Rheumatoid Factor Complement C4 Miscellaneous Test Crossmatch 01/26/17 01/27/17 01/27/17 17:11 00:30 04:00 WBC RBC Hgb Hct MCV MCH MCHC RDW Plt Count Lymph % (Auto) [place] % (Auto) Lymph # [place] # Baso # Seg Neutrophils % Seg Neuts % (Manual) Lymphocytes % (Manual) Monocytes % (Manual) Eosinophils % (Manual) Basophils % (Manual) Nucleated RBC % Seg Neutrophils # Seg Neutrophils # Man Lymphocytes # (Manual) Monocytes # (Manual) Eosinophils # (Manual) Basophils # (Manual) PT INR Fibrinogen dRVVT Confirm Interp Factor V Activity POC ABG pH POC ABG pCO2 POC ABG pO2 ABG pO2 ABG HCO3 ABG Base Excess ABG Hemoglobin Oxyhemoglobin Sodium Potassium Chloride 97.7 L Carbon Dioxide 21 L BUN 79 H Creatinine 1.7 H D Glucose 112 H POC Glucose 133 H 135 H Lactic Acid Calcium Phosphorus 5.00 H D Magnesium Direct Bilirubin AST ALT Alkaline Phosphatase Lactate Dehydrogenase Troponin T C-Reactive Protein Total Protein Albumin Prealbumin Triglycerides Cholesterol LDL Cholesterol Direct HDL Cholesterol PTH Intact Urine pH Urine WBC (Auto) Urine Creatinine Urine Total Protein Fluid Total Protein Vancomycin Trough Rheumatoid Factor Complement C4 Miscellaneous Test Crossmatch 01/27/17 01/27/17 01/27/17 05:12 12:18 17:25 WBC RBC Hgb Hct MCV MCH MCHC RDW Plt Count Lymph % (Auto) [place] % (Auto) Lymph # [place] # Baso # Seg Neutrophils % Seg Neuts % (Manual) Lymphocytes % (Manual) Monocytes % (Manual) Eosinophils % (Manual) Basophils % (Manual) Nucleated RBC % Seg Neutrophils # Seg Neutrophils # Man Lymphocytes # (Manual) Monocytes # (Manual) Eosinophils # (Manual) Basophils # (Manual) PT INR Fibrinogen dRVVT Confirm Interp Factor V Activity POC ABG pH POC ABG pCO2 POC ABG pO2 ABG pO2 ABG HCO3 ABG Base Excess ABG Hemoglobin Oxyhemoglobin Sodium Potassium Chloride Carbon Dioxide BUN Creatinine Glucose POC Glucose 116 H 153 H 152 H Lactic Acid Calcium Phosphorus Magnesium Direct Bilirubin AST ALT Alkaline Phosphatase Lactate Dehydrogenase Troponin T C-Reactive Protein Total Protein Albumin Prealbumin Triglycerides Cholesterol LDL Cholesterol Direct HDL Cholesterol PTH Intact Urine pH Urine WBC (Auto) Urine Creatinine Urine Total Protein Fluid Total Protein Vancomycin Trough Rheumatoid Factor Complement C4 Miscellaneous Test Crossmatch 01/27/17 01/28/17 01/28/17 23:42 04:00 04:00 WBC 14.4 H RBC 2.82 L Hgb 7.4 L Hct 23.5 L MCV MCH 26 L MCHC RDW 17.6 H Plt Count Lymph % (Auto) 10.2 L [place] % (Auto) 11.0 H Lymph # [place] # 1.6 H Baso # Seg Neutrophils % 78.0 H Seg Neuts % (Manual) Lymphocytes % (Manual) Monocytes % (Manual) Eosinophils % (Manual) Basophils % (Manual) Nucleated RBC % Seg Neutrophils # 11.3 H Seg Neutrophils # Man Lymphocytes # (Manual) Monocytes # (Manual) Eosinophils # (Manual) Basophils # (Manual) PT INR Fibrinogen dRVVT Confirm Interp Factor V Activity POC ABG pH POC ABG pCO2 POC ABG pO2 ABG pO2 ABG HCO3 ABG Base Excess ABG Hemoglobin Oxyhemoglobin Sodium Potassium Chloride Carbon Dioxide BUN 55 H Creatinine 1.3 H Glucose 114 H POC Glucose 121 H Lactic Acid Calcium Phosphorus Magnesium Direct Bilirubin AST ALT Alkaline Phosphatase Lactate Dehydrogenase Troponin T C-Reactive Protein Total Protein Albumin 1.4 L Prealbumin Triglycerides Cholesterol LDL Cholesterol Direct HDL Cholesterol PTH Intact Urine pH Urine WBC (Auto) Urine Creatinine Urine Total Protein Fluid Total Protein Vancomycin Trough Rheumatoid Factor Complement C4 Miscellaneous Test Crossmatch 01/28/17 01/28/17 01/29/17 04:59 12:30 00:02 WBC RBC Hgb Hct MCV MCH MCHC RDW Plt Count Lymph % (Auto) [place] % (Auto) Lymph # [place] # Baso # Seg Neutrophils % Seg Neuts % (Manual) Lymphocytes % (Manual) Monocytes % (Manual) Eosinophils % (Manual) Basophils % (Manual) Nucleated RBC % Seg Neutrophils # Seg Neutrophils # Man Lymphocytes # (Manual) Monocytes # (Manual) Eosinophils # (Manual) Basophils # (Manual) PT INR Fibrinogen dRVVT Confirm Interp Factor V Activity POC ABG pH POC ABG pCO2 POC ABG pO2 ABG pO2 ABG HCO3 ABG Base Excess ABG Hemoglobin Oxyhemoglobin Sodium Potassium Chloride Carbon Dioxide BUN Creatinine Glucose POC Glucose 126 H 119 H 138 H Lactic Acid Calcium Phosphorus Magnesium Direct Bilirubin AST ALT Alkaline Phosphatase Lactate Dehydrogenase Troponin T C-Reactive Protein Total Protein Albumin Prealbumin Triglycerides Cholesterol LDL Cholesterol Direct HDL Cholesterol PTH Intact Urine pH Urine WBC (Auto) Urine Creatinine Urine Total Protein Fluid Total Protein Vancomycin Trough Rheumatoid Factor Complement C4 Miscellaneous Test Crossmatch 01/29/17 01/29/17 01/29/17 04:58 06:15 11:35 WBC RBC Hgb Hct MCV MCH MCHC RDW Plt Count Lymph % (Auto) [place] % (Auto) Lymph # [place] # Baso # Seg Neutrophils % Seg Neuts % (Manual) Lymphocytes % (Manual) Monocytes % (Manual) Eosinophils % (Manual) Basophils % (Manual) Nucleated RBC % Seg Neutrophils # Seg Neutrophils # Man Lymphocytes # (Manual) Monocytes # (Manual) Eosinophils # (Manual) Basophils # (Manual) PT INR Fibrinogen dRVVT Confirm Interp Factor V Activity POC ABG pH POC ABG pCO2 POC ABG pO2 ABG pO2 ABG HCO3 ABG Base Excess ABG Hemoglobin Oxyhemoglobin Sodium Potassium Chloride Carbon Dioxide BUN 85 H Creatinine 1.7 H Glucose 105 H POC Glucose 114 H 110 H Lactic Acid Calcium Phosphorus Magnesium 2.40 H Direct Bilirubin AST ALT Alkaline Phosphatase Lactate Dehydrogenase Troponin T C-Reactive Protein Total Protein Albumin Prealbumin Triglycerides Cholesterol LDL Cholesterol Direct HDL Cholesterol PTH Intact Urine pH Urine WBC (Auto) Urine Creatinine Urine Total Protein Fluid Total Protein Vancomycin Trough Rheumatoid Factor Complement C4 Miscellaneous Test Crossmatch 01/29/17 01/29/17 01/30/17 18:24 23:41 05:12 WBC RBC Hgb Hct MCV MCH MCHC RDW Plt Count Lymph % (Auto) [place] % (Auto) Lymph # [place] # Baso # Seg Neutrophils % Seg Neuts % (Manual) Lymphocytes % (Manual) Monocytes % (Manual) Eosinophils % (Manual) Basophils % (Manual) Nucleated RBC % Seg Neutrophils # Seg Neutrophils # Man Lymphocytes # (Manual) Monocytes # (Manual) Eosinophils # (Manual) Basophils # (Manual) PT INR Fibrinogen dRVVT Confirm Interp Factor V Activity POC ABG pH POC ABG pCO2 POC ABG pO2 ABG pO2 ABG HCO3 ABG Base Excess ABG Hemoglobin Oxyhemoglobin Sodium Potassium Chloride Carbon Dioxide BUN Creatinine Glucose POC Glucose 109 H 134 H 109 H Lactic Acid Calcium Phosphorus Magnesium Direct Bilirubin AST ALT Alkaline Phosphatase Lactate Dehydrogenase Troponin T C-Reactive Protein Total Protein Albumin Prealbumin Triglycerides Cholesterol LDL Cholesterol Direct HDL Cholesterol PTH Intact Urine pH Urine WBC (Auto) Urine Creatinine Urine Total Protein Fluid Total Protein Vancomycin Trough Rheumatoid Factor Complement C4 Miscellaneous Test Crossmatch 01/30/17 01/30/17 01/30/17 11:26 17:43 23:39 WBC RBC Hgb Hct MCV MCH MCHC RDW Plt Count Lymph % (Auto) [place] % (Auto) Lymph # [place] # Baso # Seg Neutrophils % Seg Neuts % (Manual) Lymphocytes % (Manual) Monocytes % (Manual) Eosinophils % (Manual) Basophils % (Manual) Nucleated RBC % Seg Neutrophils # Seg Neutrophils # Man Lymphocytes # (Manual) Monocytes # (Manual) Eosinophils # (Manual) Basophils # (Manual) PT INR Fibrinogen dRVVT Confirm Interp Factor V Activity POC ABG pH POC ABG pCO2 POC ABG pO2 ABG pO2 ABG HCO3 ABG Base Excess ABG Hemoglobin Oxyhemoglobin Sodium Potassium Chloride Carbon Dioxide BUN Creatinine Glucose POC Glucose 135 H 143 H 122 H Lactic Acid Calcium Phosphorus Magnesium Direct Bilirubin AST ALT Alkaline Phosphatase Lactate Dehydrogenase Troponin T C-Reactive Protein Total Protein Albumin Prealbumin Triglycerides Cholesterol LDL Cholesterol Direct HDL Cholesterol PTH Intact Urine pH Urine WBC (Auto) Urine Creatinine Urine Total Protein Fluid Total Protein Vancomycin Trough Rheumatoid Factor Complement C4 Miscellaneous Test Crossmatch 01/31/17 01/31/17 01/31/17 04:00 05:40 11:12 WBC RBC Hgb Hct MCV MCH MCHC RDW Plt Count Lymph % (Auto) [place] % (Auto) Lymph # [place] # Baso # Seg Neutrophils % Seg Neuts % (Manual) Lymphocytes % (Manual) Monocytes % (Manual) Eosinophils % (Manual) Basophils % (Manual) Nucleated RBC % Seg Neutrophils # Seg Neutrophils # Man Lymphocytes # (Manual) Monocytes # (Manual) Eosinophils # (Manual) Basophils # (Manual) PT INR Fibrinogen dRVVT Confirm Interp Factor V Activity POC ABG pH POC ABG pCO2 POC ABG pO2 ABG pO2 ABG HCO3 ABG Base Excess ABG Hemoglobin Oxyhemoglobin Sodium Potassium Chloride Carbon Dioxide BUN 78 H Creatinine 1.5 H Glucose 108 H POC Glucose 123 H Lactic Acid Calcium Phosphorus Magnesium Direct Bilirubin AST ALT Alkaline Phosphatase Lactate Dehydrogenase Troponin T C-Reactive Protein 8.10 H Total Protein Albumin Prealbumin Triglycerides Cholesterol LDL Cholesterol Direct HDL Cholesterol PTH Intact Urine pH Urine WBC (Auto) Urine Creatinine Urine Total Protein Fluid Total Protein Vancomycin Trough Rheumatoid Factor Complement C4 Miscellaneous Test Crossmatch 01/31/17 01/31/17 01/31/17 11:16 17:45 17:50 WBC RBC Hgb Hct MCV MCH MCHC RDW Plt Count Lymph % (Auto) [place] % (Auto) Lymph # [place] # Baso # Seg Neutrophils % Seg Neuts % (Manual) Lymphocytes % (Manual) Monocytes % (Manual) Eosinophils % (Manual) Basophils % (Manual) Nucleated RBC % Seg Neutrophils # Seg Neutrophils # Man Lymphocytes # (Manual) Monocytes # (Manual) Eosinophils # (Manual) Basophils # (Manual) PT INR Fibrinogen dRVVT Confirm Interp Factor V Activity POC ABG pH POC ABG pCO2 POC ABG pO2 ABG pO2 ABG HCO3 ABG Base Excess ABG Hemoglobin Oxyhemoglobin Sodium Potassium Chloride Carbon Dioxide BUN Creatinine Glucose POC Glucose 119 H 111 H Lactic Acid Calcium Phosphorus Magnesium Direct Bilirubin AST ALT Alkaline Phosphatase Lactate Dehydrogenase Troponin T C-Reactive Protein Total Protein Albumin Prealbumin Triglycerides Cholesterol LDL Cholesterol Direct HDL Cholesterol PTH Intact 6.76 L Urine pH Urine WBC (Auto) Urine Creatinine Urine Total Protein Fluid Total Protein Vancomycin Trough Rheumatoid Factor Complement C4 Miscellaneous Test Crossmatch 01/31/17 02/01/17 02/01/17 23:19 05:42 09:24 WBC RBC Hgb Hct MCV MCH MCHC RDW Plt Count Lymph % (Auto) [place] % (Auto) Lymph # [place] # Baso # Seg Neutrophils % Seg Neuts % (Manual) Lymphocytes % (Manual) Monocytes % (Manual) Eosinophils % (Manual) Basophils % (Manual) Nucleated RBC % Seg Neutrophils # Seg Neutrophils # Man Lymphocytes # (Manual) Monocytes # (Manual) Eosinophils # (Manual) Basophils # (Manual) PT INR Fibrinogen dRVVT Confirm Interp Factor V Activity POC ABG pH POC ABG pCO2 POC ABG pO2 ABG pO2 ABG HCO3 ABG Base Excess ABG Hemoglobin Oxyhemoglobin Sodium Potassium Chloride Carbon Dioxide BUN Creatinine Glucose POC Glucose 118 H 122 H Lactic Acid Calcium Phosphorus Magnesium 2.60 H Direct Bilirubin AST ALT Alkaline Phosphatase Lactate Dehydrogenase Troponin T C-Reactive Protein Total Protein Albumin Prealbumin Triglycerides Cholesterol LDL Cholesterol Direct HDL Cholesterol PTH Intact Urine pH Urine WBC (Auto) Urine Creatinine Urine Total Protein Fluid Total Protein Vancomycin Trough Rheumatoid Factor Complement C4 Miscellaneous Test Crossmatch 02/01/17 02/01/17 02/02/17 09:24 12:15 07:40 WBC RBC Hgb Hct MCV MCH MCHC RDW Plt Count Lymph % (Auto) [place] % (Auto) Lymph # [place] # Baso # Seg Neutrophils % Seg Neuts % (Manual) Lymphocytes % (Manual) Monocytes % (Manual) Eosinophils % (Manual) Basophils % (Manual) Nucleated RBC % Seg Neutrophils # Seg Neutrophils # Man Lymphocytes # (Manual) Monocytes # (Manual) Eosinophils # (Manual) Basophils # (Manual) PT INR Fibrinogen dRVVT Confirm Interp Factor V Activity POC ABG pH POC ABG pCO2 POC ABG pO2 ABG pO2 ABG HCO3 ABG Base Excess ABG Hemoglobin Oxyhemoglobin Sodium Potassium Chloride Carbon Dioxide BUN 102 H 72 H Creatinine 1.9 H 1.5 H Glucose 120 H POC Glucose 156 H Lactic Acid Calcium Phosphorus Magnesium Direct Bilirubin AST ALT Alkaline Phosphatase Lactate Dehydrogenase Troponin T C-Reactive Protein Total Protein Albumin Prealbumin Triglycerides Cholesterol LDL Cholesterol Direct HDL Cholesterol PTH Intact Urine pH Urine WBC (Auto) Urine Creatinine Urine Total Protein Fluid Total Protein Vancomycin Trough Rheumatoid Factor Complement C4 Miscellaneous Test Crossmatch 02/02/17 02/02/17 02/03/17 10:16 12:11 00:08 WBC 12.0 H RBC 3.08 L Hgb 8.3 L Hct 25.6 L MCV MCH 27 L MCHC RDW 18.2 H Plt Count Lymph % (Auto) [place] % (Auto) Lymph # [place] # Baso # Seg Neutrophils % 78.4 H Seg Neuts % (Manual) Lymphocytes % (Manual) Monocytes % (Manual) Eosinophils % (Manual) Basophils % (Manual) Nucleated RBC % Seg Neutrophils # 9.4 H Seg Neutrophils # Man Lymphocytes # (Manual) Monocytes # (Manual) Eosinophils # (Manual) Basophils # (Manual) PT INR Fibrinogen dRVVT Confirm Interp Factor V Activity POC ABG pH POC ABG pCO2 POC ABG pO2 ABG pO2 ABG HCO3 ABG Base Excess ABG Hemoglobin Oxyhemoglobin Sodium Potassium Chloride Carbon Dioxide BUN Creatinine Glucose POC Glucose 110 H 120 H Lactic Acid Calcium Phosphorus Magnesium Direct Bilirubin AST ALT Alkaline Phosphatase Lactate Dehydrogenase Troponin T C-Reactive Protein Total Protein Albumin Prealbumin Triglycerides Cholesterol LDL Cholesterol Direct HDL Cholesterol PTH Intact Urine pH Urine WBC (Auto) Urine Creatinine Urine Total Protein Fluid Total Protein Vancomycin Trough Rheumatoid Factor Complement C4 Miscellaneous Test Crossmatch 02/03/17 02/03/17 05:41 07:38 WBC RBC Hgb Hct MCV MCH MCHC RDW Plt Count Lymph % (Auto) [place] % (Auto) Lymph # [place] # Baso # Seg Neutrophils % Seg Neuts % (Manual) Lymphocytes % (Manual) Monocytes % (Manual) Eosinophils % (Manual) Basophils % (Manual) Nucleated RBC % Seg Neutrophils # Seg Neutrophils # Man Lymphocytes # (Manual) Monocytes # (Manual) Eosinophils # (Manual) Basophils # (Manual) PT INR Fibrinogen dRVVT Confirm Interp Factor V Activity POC ABG pH POC ABG pCO2 POC ABG pO2 ABG pO2 ABG HCO3 ABG Base Excess ABG Hemoglobin Oxyhemoglobin Sodium 134 L Potassium Chloride Carbon Dioxide 21 L BUN 91 H Creatinine 1.9 H Glucose 110 H POC Glucose 119 H Lactic Acid Calcium 10.3 H Phosphorus Magnesium Direct Bilirubin AST ALT Alkaline Phosphatase Lactate Dehydrogenase Troponin T C-Reactive Protein Total Protein Albumin Prealbumin Triglycerides Cholesterol LDL Cholesterol Direct HDL Cholesterol PTH Intact Urine pH Urine WBC (Auto) Urine Creatinine Urine Total Protein Fluid Total Protein Vancomycin Trough Rheumatoid Factor Complement C4 Miscellaneous Test Crossmatch Allied health notes reviewed: RT (not tolerating weaning. Has been on PS 18/5, desaturations if PS is weaned)
[2017-02-03] MEDS ORDERED: NACL 0.9% 1000 ML 2,000 ML ONE (16:08)
[2017-02-03] MEDS: HEPARIN IV PRN (18:06)
[2017-02-03] MEDS ORDERED: INTRALIPID 20% 250 ML IV SCH (20:00)
[2017-02-03] MEDS ORDERED: TPN ADULT IV SCH (20:00)
[2017-02-03] MEDS: NACL 0.9% IV SCH (20:56)
[2017-02-03] MEDS: TAZICEF IV SCH (20:56)
[2017-02-04] MEDS: DUONEB *Not for PRN Use IH SCH ×4 (01:29→19:44)
[2017-02-04 04:30] LABS: Calcium 9.8 mg/dL (8.4-10.2)
[2017-02-04] MEDS: REGLAN IV SCH ×3 (05:20→21:32)
[2017-02-04] MEDS: HumuLIN R SUB-Q SCH ×4 (05:20→19:04)
--- NOTE | 2017-02-04 08:52 | Progress Note ---
Subjective Principal diagnosis: Acute resp failure on MVS; S/P Acute CVA; Acute Encephalopathy; JUANITA Interval history: Patient was seen today for follow-up on multiple renal-related issues Around 9: 45 in the morning Neurologically her status has been unchanged, she is alert awake Patient is currently pending placement Lab results were reviewed Social history: Reviewed Medication: Reviewed Family history: Reviewed Allergies: Reviewed Physical examination General; no acute distress HEENT: Mild pallor no icterus oral mucosa moist Neck: Supple soft no jugular venous distention, cath site essentially unremarkable Chest: Bilateral clear to auscultation anteriorly posteriorly a few faint basilar crackles at the lung bases no wheezes Cardiovascular: S1-S2 heart no S3-S4 Abdomen: Soft nontender no voluntary guarding rigidity rebound no organomegaly no masses no suprapubic fullness no CVA tenderness Extremity: Minimal edema dry skin no tenderness in the Area Derm: Dry skin Assessment and plan Acute kidney injury with underlying severe chronic kidney disease patient is currently dialysis dependent. she will continue to dialyze 3 times every week for now hemodialysis will be continued as long as she is hemodynamically stable We'll continue to monitor for any sign and symptoms of renal function recovery urine output has slightly improved Current dialysis access is a central venous catheter which has been working well according to dialysis nurse Patient will need periodic transfusion if her hemoglobin is under 7 Possibly avoid erythropoietin as much as possible due to CVA Phosphorus and PTH level satisfactory February 02 Continue with supportive care Respiratory failure, massive stroke, paroxysmal atrial fibrillation failed cardioversion Multiple other health issues overall prognosis guarded to poor pending placement Objective - Vital Signs Vital signs: Vital Signs - 12hr 02/03/17 02/03/17 02/03/17 21:00 21:30 22:00 Temperature Pulse Rate 112 H 114 H 118 H Pulse Rate [ Apical] Pulse Rate [ From Monitor] Pulse Rate [ Right Lower Lobe] Respiratory 24 22 24 Rate Respiratory Rate [Right Lower Lobe] Blood Pressure 125/70 123/81 137/76 O2 Sat by Pulse 99 100 99 Oximetry O2 Sat by Pulse Oximetry [ Assessment] 02/03/17 02/03/17 02/03/17 22:30 22:57 23:00 Temperature Pulse Rate 110 H 113 H 108 H Pulse Rate [ Apical] Pulse Rate [ From Monitor] Pulse Rate [ Right Lower Lobe] Respiratory 22 22 21 Rate Respiratory Rate [Right Lower Lobe] Blood Pressure 132/77 132/71 137/78 O2 Sat by Pulse 100 99 100 Oximetry O2 Sat by Pulse Oximetry [ Assessment] 02/03/17 02/03/17 02/03/17 23:05 23:30 23:40 Temperature Pulse Rate 109 H 100 H Pulse Rate [ Apical] Pulse Rate [ From Monitor] Pulse Rate [ Right Lower Lobe] Respiratory 21 Rate Respiratory Rate [Right Lower Lobe] Blood Pressure 134/81 141/82 O2 Sat by Pulse 100 99 100 Oximetry O2 Sat by Pulse Oximetry [ Assessment] 02/04/17 02/04/17 02/04/17 00:00 00:30 01:00 Temperature 97.5 F L Pulse Rate 113 H 115 H 113 H Pulse Rate [ Apical] Pulse Rate [ From Monitor] Pulse Rate [ Right Lower Lobe] Respiratory 20 21 22 Rate Respiratory Rate [Right Lower Lobe] Blood Pressure 137/86 142/79 134/83 O2 Sat by Pulse 100 99 100 Oximetry O2 Sat by Pulse Oximetry [ Assessment] 02/04/17 02/04/17 02/04/17 01:30 01:45 02:00 Temperature Pulse Rate 117 H 116 H Pulse Rate [ Apical] Pulse Rate [ From Monitor] Pulse Rate [ 118 H 118 H Right Lower Lobe] Respiratory 27 H 25 H Rate Respiratory 21 21 Rate [Right Lower Lobe] Blood Pressure 135/79 146/77 O2 Sat by Pulse 99 98 Oximetry O2 Sat by Pulse Oximetry [ Assessment] 02/04/17 02/04/17 02/04/17 02:07 02:30 03:00 Temperature Pulse Rate 114 H 112 H Pulse Rate [ Apical] Pulse Rate [ From Monitor] Pulse Rate [ Right Lower Lobe] Respiratory 19 22 Rate Respiratory Rate [Right Lower Lobe] Blood Pressure 139/74 127/77 O2 Sat by Pulse 99 100 Oximetry O2 Sat by Pulse 99 Oximetry [ Assessment] 02/04/17 02/04/17 02/04/17 03:30 04:00 04:30 Temperature 97.7 F Pulse Rate 119 H 121 H 119 H Pulse Rate [ 116 H Apical] Pulse Rate [ 116 H From Monitor] Pulse Rate [ Right Lower Lobe] Respiratory 18 17 19 Rate Respiratory Rate [Right Lower Lobe] Blood Pressure 146/86 135/83 139/81 O2 Sat by Pulse 99 100 100 Oximetry O2 Sat by Pulse Oximetry [ Assessment] 02/04/17 02/04/17 02/04/17 05:00 05:09 05:30 Temperature Pulse Rate 119 H 116 H 113 H Pulse Rate [ Apical] Pulse Rate [ From Monitor] Pulse Rate [ Right Lower Lobe] Respiratory 21 16 Rate Respiratory Rate [Right Lower Lobe] Blood Pressure 129/84 129/84 119/78 O2 Sat by Pulse 100 98 100 Oximetry O2 Sat by Pulse Oximetry [ Assessment] 02/04/17 02/04/17 02/04/17 06:00 06:30 07:00 Temperature Pulse Rate 113 H 115 H 112 H Pulse Rate [ Apical] Pulse Rate [ From Monitor] Pulse Rate [ Right Lower Lobe] Respiratory 23 24 24 Rate Respiratory Rate [Right Lower Lobe] Blood Pressure 129/87 132/87 145/91 O2 Sat by Pulse 100 100 100 Oximetry O2 Sat by Pulse Oximetry [ Assessment] 02/04/17 02/04/17 07:30 08:00 Temperature 99.0 F Pulse Rate 113 H 116 H Pulse Rate [ Apical] Pulse Rate [ From Monitor] Pulse Rate [ Right Lower Lobe] Respiratory 20 19 Rate Respiratory Rate [Right Lower Lobe] Blood Pressure 144/89 134/88 O2 Sat by Pulse 100 100 Oximetry O2 Sat by Pulse Oximetry [ Assessment] - Lab 02/02/17 10:16 02/04/17 04:00 Most recent lab results ABG pH 7.450 pH Units (7.350-7.450) 12/05/16 Unknown ABG pCO2 29.6 mm Hg 12/05/16 Unknown ABG pO2 75.2 mm Hg (80.0-90.0) L 12/05/16 Unknown ABG HCO3 20.1 mmol/L (20.0-26.0) 12/05/16 Unknown ABG O2 Saturation 96.8 % (95.0-99.0) 12/05/16 Unknown Calcium 9.8 mg/dL (8.4-10.2) 02/04/17 04:00 Phosphorus 2.00 mg/dL (2.5-4.5) L D 02/04/17 04:00 Magnesium 1.60 mg/dL (1.7-2.3) L 02/04/17 04:00 Urine Creatinine 19.7 mg/dL (0.1-20.0) 11/12/16 10:18 Urine Sodium 36 mEq/L 09/16/16 19:19 Urine Total Protein 16 mg/dL (5-11.8) H 09/16/16 19:19
[2017-02-04] MEDS: NORMODYNE IV PRN (12:10)
[2017-02-04] MEDS: ROBINUL PO SCH ×2 (12:16→21:32)
[2017-02-04] MEDS: PROTONIX FEEDTUBE SCH (12:16)
[2017-02-04] MEDS: HEPARIN SUB-Q SCH ×2 (12:16→21:32)
--- NOTE | 2017-02-04 13:28 | Progress Note ---
Assessment and Plan Acute Hypoxemic Respiratory Failure (now with exacerbation and back on MVS) Hypertension (unable to receive p.o. meds) Atrial Fibrillation with RVR s/p tracheostomy Acute encephalopathy s/p CVA Oropharyngeal dysphagia Enterococcal bacteremia sepsis syndrome Sacral Decubitus Ulcer (s/p surgical debridement) Anemia Obesity JUANITA now on hemodialysis Enteric Fistula - continue to hold tube feeds due to persistent emesis; continue reglan at 10mg IV q8h - IR consulted for G-J tube (not a good candidate for either chest tube or perc G-J Tube per IR) - appreciate surgery input (RN intructed to report increased effluent from abdominal drains today) - continue fentanyl patch for pain issues especially s/p debridement - continue wound care per WCT and RN's (she is s/p surgical debridement) - continue anti-infectives per ID recs (on till 02/04 re wound sensitivities) - prn CRP & lactate levels if clinically indicated (Follow WBC also) - keep on with daily PSV trials and / or T-piece as tolerated (Tolerating well so far today) - continue TPN administration - continue scopolamine for secretion control - continue to wean FiO2 for sats > 94% - continue bronchodilators and pulmonary toilet - VAP bundle addressed - continue prn IV metorolol (5mg IV q6h) - continue metoprolol and amlodipine (hold for hypotension) - continue to follow electrolytes and correct as necessary - continue GI & VTE prophylaxis - Continue flu & pneumovax per protocol - ethics consult placed and pending .....she remains critically ill on life sustaining interventions including MVS and at risk for further deterioration including ....30' CCT today without overlap ....care plan discussed at length during team rounds ...longterm prognosis remains guarded and this has intermittently been conveyed to family Subjective Date of service: 02/04/17 Principal diagnosis: Acute resp failure on MVS; S/P Acute CVA; Acute Encephalopathy; JUANITA Interval history: nterval history: Patient is seen today for: Acute resp failure on MVS; S/P Acute CVA; Acute Encephalopathy; JUANITA Seen and examined at bedside; 24hour events reviewed; nursing and respiratory care staff consulted; no adverse overnight events reported to me; silvia remains critically ill and is still not tolerating weaning well; still with drainage from GI drains but with increased output today (1250mls so far); AMS is persistent; she is on PSV 15/5 now Objective Vital Signs - 12hr 02/04/17 02/04/17 02/04/17 01:30 01:45 02:00 Temperature Pulse Rate 117 H 116 H Pulse Rate [ Apical] Pulse Rate [ From Monitor] Pulse Rate [ 118 H 118 H Right Lower Lobe] Respiratory 27 H 25 H Rate Respiratory 21 21 Rate [Right Lower Lobe] Blood Pressure 135/79 146/77 O2 Sat by Pulse 99 98 Oximetry O2 Sat by Pulse Oximetry [ Assessment] 02/04/17 02/04/17 02/04/17 02:07 02:30 03:00 Temperature Pulse Rate 114 H 112 H Pulse Rate [ Apical] Pulse Rate [ From Monitor] Pulse Rate [ Right Lower Lobe] Respiratory 19 22 Rate Respiratory Rate [Right Lower Lobe] Blood Pressure 139/74 127/77 O2 Sat by Pulse 99 100 Oximetry O2 Sat by Pulse 99 Oximetry [ Assessment] 02/04/17 02/04/17 02/04/17 03:30 04:00 04:30 Temperature 97.7 F Pulse Rate 119 H 121 H 119 H Pulse Rate [ 116 H Apical] Pulse Rate [ 116 H From Monitor] Pulse Rate [ Right Lower Lobe] Respiratory 18 17 19 Rate Respiratory Rate [Right Lower Lobe] Blood Pressure 146/86 135/83 139/81 O2 Sat by Pulse 99 100 100 Oximetry O2 Sat by Pulse Oximetry [ Assessment] 02/04/17 02/04/17 02/04/17 05:00 05:09 05:30 Temperature Pulse Rate 119 H 116 H 113 H Pulse Rate [ Apical] Pulse Rate [ From Monitor] Pulse Rate [ Right Lower Lobe] Respiratory 21 16 Rate Respiratory Rate [Right Lower Lobe] Blood Pressure 129/84 129/84 119/78 O2 Sat by Pulse 100 98 100 Oximetry O2 Sat by Pulse Oximetry [ Assessment] 02/04/17 02/04/17 02/04/17 06:00 06:30 07:00 Temperature Pulse Rate 113 H 115 H 112 H Pulse Rate [ Apical] Pulse Rate [ From Monitor] Pulse Rate [ Right Lower Lobe] Respiratory 23 24 24 Rate Respiratory Rate [Right Lower Lobe] Blood Pressure 129/87 132/87 145/91 O2 Sat by Pulse 100 100 100 Oximetry O2 Sat by Pulse Oximetry [ Assessment] 02/04/17 02/04/1702/04/17 07:30 08:00 10:45 Temperature 99.0 F Pulse Rate 113 H 116 H 116 H Pulse Rate [ Apical] Pulse Rate [ From Monitor] Pulse Rate [ Right Lower Lobe] Respiratory 20 19 36 H Rate Respiratory Rate [Right Lower Lobe] Blood Pressure 144/89 134/88 134/88 O2 Sat by Pulse 100 100 100 Oximetry O2 Sat by Pulse Oximetry [ Assessment] 02/04/17 02/04/17 02/04/17 12:00 12:04 12:10 Temperature 99.2 F Pulse Rate 170 H Pulse Rate [ Apical] Pulse Rate [ From Monitor] Pulse Rate [ Right Lower Lobe] Respiratory Rate Respiratory Rate [Right Lower Lobe] Blood Pressure 162/83 O2 Sat by Pulse Oximetry O2 Sat by Pulse 98 Oximetry [ Assessment] Constitutional: appears uncomfortable, other (not tracking) Eyes: non-icteric, other (tracheostomy tube in midline of neck) ENT: oropharynx moist, oropharyngeal exudate pre Neck: supple, no lymphadenopathy, no JVD, other (no thyromegaly) Effort: mildly labored Ascultation: Bilateral: diminished breath sounds (right base), rhonchi (and referred upper airway sounds) Percussion: Right: dull (base), Bilateral: not dull Cardiovascular: regular rate and rhythm, other (no rubs / murmurs) Gastrointestinal: hypoactive bowel sounds, soft, non-tender, non-distended, other (RLQ & LUQ stomas with colostomy bags) Integumentary: decubitus ulcer (sacral; stage 4 s/p surgical debridement), other (no rash; no cellulitis; poor turgor) Extremities: no cyanosis, pulses normal, no ischemia or petechiae, edema (1+ bilaterally) Neurologic: pupils equal and round, unable to assess, other (encephalopathic) Psychiatric: other (unable to assess) CBC and BMP: 02/02/17 10:16 02/05/17 04:00 ABG, PT/INR, D-dimer: ABG POC ABG pH 7.436 (7.35-7.45) 01/20/17 12:17 ABG pH 7.450 pH Units (7.350-7.450) 12/05/16 Unknown POC ABG pCO2 35.3 (35-45) 01/20/17 12:17 ABG pCO2 29.6 mm Hg 12/05/16 Unknown POC ABG pO2 70 (80-105) L 01/20/17 12:17 ABG pO2 75.2 mm Hg (80.0-90.0) L 12/05/16 Unknown POC ABG HCO3 23.8 01/20/17 12:17 POC ABG Total CO2 25 01/20/17 12:17 POC ABG O2 Sat 94 01/20/17 12: ABG O2 Saturation 96.8 % (95.0-99.0) 12/05/16 Unknown PT/INR, D-dimer PT 15.4 Sec. (12.2-14.9) H 01/13/17 15:50 INR 1.16 (0.87-1.13) H 01/13/17 15:50 Abnormal lab findings: Abnormal Labs 09/03/16 09/03/16 09/03/16 00:03 00:10 00:10 WBC 13.9 H RBC 5.95 H Hgb Hct 44.0 H MCV 74 L MCH 22 L MCHC RDW 17.5 H Plt Count Lymph % (Auto) [place] % (Auto) Lymph # [place] # Baso # Seg Neutrophils % Seg Neuts % (Manual) Lymphocytes % (Manual) 54.0 H Monocytes % (Manual) Eosinophils % (Manual) Basophils % (Manual) Nucleated RBC % Seg Neutrophils # Seg Neutrophils # Man Lymphocytes # (Manual) 7.5 H Monocytes # (Manual) Eosinophils # (Manual) Basophils # (Manual) PT INR Fibrinogen dRVVT Confirm Interp Factor V Activity POC ABG pH POC ABG pCO2 POC ABG pO2 ABG pO2 ABG HCO3 ABG Base Excess ABG Hemoglobin Oxyhemoglobin Sodium Potassium 2.8 L* Chloride Carbon Dioxide 21 L BUN Creatinine 1.7 H Glucose 159 H POC Glucose 177 H Lactic Acid Calcium Phosphorus Magnesium Direct Bilirubin AST ALT Alkaline Phosphatase Lactate Dehydrogenase Troponin T C-Reactive Protein Total Protein Albumin Prealbumin Triglycerides Cholesterol LDL Cholesterol Direct HDL Cholesterol PTH Intact Urine pH Urine WBC (Auto) Urine Creatinine Urine Total Protein Fluid Total Protein Vancomycin Trough Rheumatoid Factor Complement C4 Miscellaneous Test Crossmatch 09/03/16 09/03/16 09/03/16 12:12 15:07 16:20 WBC RBC Hgb Hct MCV MCH MCHC RDW Plt Count Lymph % (Auto) [place] % (Auto) Lymph # [place] # Baso # Seg Neutrophils % Seg Neuts % (Manual) Lymphocytes % (Manual) Monocytes % (Manual) Eosinophils % (Manual) Basophils % (Manual) Nucleated RBC % Seg Neutrophils # Seg Neutrophils # Man Lymphocytes # (Manual) Monocytes # (Manual) Eosinophils # (Manual) Basophils # (Manual) PT INR Fibrinogen dRVVT Confirm Interp Factor V Activity POC ABG pH 7.452 H POC ABG pCO2 POC ABG pO2 ABG pO2 ABG HCO3 ABG Base Excess ABG Hemoglobin Oxyhemoglobin Sodium Potassium Chloride Carbon Dioxide BUN Creatinine Glucose POC Glucose 178 H Lactic Acid Calcium Phosphorus 2.20 L Magnesium 1.60 L Direct Bilirubin AST ALT Alkaline Phosphatase Lactate Dehydrogenase Troponin T C-Reactive Protein Total Protein Albumin Prealbumin Triglycerides Cholesterol LDL Cholesterol Direct HDL Cholesterol PTH Intact Urine pH Urine WBC (Auto) Urine Creatinine Urine Total Protein Fluid Total Protein Vancomycin Trough Rheumatoid Factor Complement C4 Miscellaneous Test Crossmatch 09/03/16 09/03/16 09/03/16 17:57 17:58 23:50 WBC RBC Hgb Hct MCV MCH MCHC RDW Plt Count Lymph % (Auto) [place] % (Auto) Lymph # [place] # Baso # Seg Neutrophils % Seg Neuts % (Manual) Lymphocytes % (Manual) Monocytes % (Manual) Eosinophils % (Manual) Basophils % (Manual) Nucleated RBC % Seg Neutrophils # Seg Neutrophils # Man Lymphocytes # (Manual) Monocytes # (Manual) Eosinophils # (Manual) Basophils # (Manual) PT INR Fibrinogen dRVVT Confirm Interp Factor V Activity POC ABG pH POC ABG pCO2 POC ABG pO2 ABG pO2 ABG HCO3 ABG Base Excess ABG Hemoglobin Oxyhemoglobin Sodium Potassium Chloride Carbon Dioxide BUN Creatinine Glucose POC Glucose 162 H 145 H Lactic Acid Calcium Phosphorus 2.30 L Magnesium Direct Bilirubin AST ALT Alkaline Phosphatase Lactate Dehydrogenase Troponin T C-Reactive Protein Total Protein Albumin Prealbumin Triglycerides Cholesterol LDL Cholesterol Direct HDL Cholesterol PTH Intact Urine pH Urine WBC (Auto) Urine Creatinine Urine Total Protein Fluid Total Protein Vancomycin Trough Rheumatoid Factor Complement C4 Miscellaneous Test Crossmatch 09/04/16 09/04/16 09/04/16 03:31 03:31 05:42 WBC RBC Hgb 9.7 L D Hct MCV 72 L MCH 23 L MCHC RDW 17.5 H Plt Count Lymph % (Auto) 11.1 L [place] % (Auto) Lymph # [place] # Baso # Seg Neutrophils % 84.3 H Seg Neuts % (Manual) Lymphocytes % (Manual) Monocytes % (Manual) Eosinophils % (Manual) Basophils % (Manual) Nucleated RBC % Seg Neutrophils # 8.9 H Seg Neutrophils # Man Lymphocytes # (Manual) Monocytes # (Manual) Eosinophils # (Manual) Basophils # (Manual) PT INR Fibrinogen dRVVT Confirm Interp Factor V Activity POC ABG pH POC ABG pCO2 POC ABG pO2 ABG pO2 ABG HCO3 ABG Base Excess ABG Hemoglobin Oxyhemoglobin Sodium 135 L Potassium 2.9 L* Chloride 97.2 L Carbon Dioxide 19 L BUN Creatinine 1.7 H Glucose 170 H POC Glucose 152 H Lactic Acid Calcium Phosphorus Magnesium Direct Bilirubin AST ALT Alkaline Phosphatase Lactate Dehydrogenase Troponin T C-Reactive Protein Total Protein Albumin Prealbumin Triglycerides 160 H Cholesterol LDL Cholesterol Direct HDL Cholesterol 31 L PTH Intact Urine pH Urine WBC (Auto) Urine Creatinine Urine Total Protein Fluid Total Protein Vancomycin Trough Rheumatoid Factor Complement C4 Miscellaneous Test Crossmatch 09/04/16 09/04/16 09/04/16 11:34 17:46 23:29 WBC RBC Hgb Hct MCV MCH MCHC RDW Plt Count Lymph % (Auto) [place] % (Auto) Lymph # [place] # Baso # Seg Neutrophils % Seg Neuts % (Manual) Lymphocytes % (Manual) Monocytes % (Manual) Eosinophils % (Manual) Basophils % (Manual) Nucleated RBC % Seg Neutrophils # Seg Neutrophils # Man Lymphocytes # (Manual) Monocytes # (Manual) Eosinophils # (Manual) Basophils # (Manual) PT INR Fibrinogen dRVVT Confirm Interp Factor V Activity POC ABG pH POC ABG pCO2 POC ABG pO2 ABG pO2 ABG HCO3 ABG Base Excess ABG Hemoglobin Oxyhemoglobin Sodium Potassium Chloride Carbon Dioxide BUN Creatinine Glucose POC Glucose 165 H 210 H 139 H Lactic Acid Calcium Phosphorus Magnesium Direct Bilirubin AST ALT Alkaline Phosphatase Lactate Dehydrogenase Troponin T C-Reactive Protein Total Protein Albumin Prealbumin Triglycerides Cholesterol LDL Cholesterol Direct HDL Cholesterol PTH Intact Urine pH Urine WBC (Auto) Urine Creatinine Urine Total Protein Fluid Total Protein Vancomycin Trough Rheumatoid Factor Complement C4 Miscellaneous Test Crossmatch 09/05/16 09/05/16 09/05/16 04:05 04:05 05:38 WBC RBC Hgb Hct MCV 76 L D MCH 23 L MCHC RDW 17.8 H Plt Count Lymph % (Auto) [place] % (Auto) Lymph # [place] # Baso # Seg Neutrophils % Seg Neuts % (Manual) Lymphocytes % (Manual) Monocytes % (Manual) Eosinophils % (Manual) Basophils % (Manual) Nucleated RBC % Seg Neutrophils # Seg Neutrophils # Man Lymphocytes # (Manual) Monocytes # (Manual) Eosinophils # (Manual) Basophils # (Manual) PT INR Fibrinogen dRVVT Confirm Interp Factor V Activity POC ABG pH POC ABG pCO2 POC ABG pO2 ABG pO2 ABG HCO3 ABG Base Excess ABG Hemoglobin Oxyhemoglobin Sodium 134 L Potassium Chloride Carbon Dioxide 18 L BUN Creatinine 1.8 H Glucose 192 H POC Glucose 175 H Lactic Acid Calcium Phosphorus Magnesium Direct Bilirubin AST ALT Alkaline Phosphatase Lactate Dehydrogenase Troponin T C-Reactive Protein Total Protein Albumin Prealbumin Triglycerides Cholesterol LDL Cholesterol Direct HDL Cholesterol PTH Intact Urine pH Urine WBC (Auto) Urine Creatinine Urine Total Protein Fluid Total Protein Vancomycin Trough Rheumatoid Factor Complement C4 Miscellaneous Test Crossmatch 09/05/16 09/05/16 09/05/16 11:38 17:48 23:22 WBC RBC Hgb Hct MCV MCH MCHC RDW Plt Count Lymph % (Auto) [place] % (Auto) Lymph # [place] # Baso # Seg Neutrophils % Seg Neuts % (Manual) Lymphocytes % (Manual) Monocytes % (Manual) Eosinophils % (Manual) Basophils % (Manual) Nucleated RBC % Seg Neutrophils # Seg Neutrophils # Man Lymphocytes # (Manual) Monocytes # (Manual) Eosinophils # (Manual) Basophils # (Manual) PT INR Fibrinogen dRVVT Confirm Interp Factor V Activity POC ABG pH POC ABG pCO2 POC ABG pO2 ABG pO2 ABG HCO3 ABG Base Excess ABG Hemoglobin Oxyhemoglobin Sodium Potassium Chloride Carbon Dioxide BUN Creatinine Glucose POC Glucose 164 H 186 H 195 H Lactic Acid Calcium Phosphorus Magnesium Direct Bilirubin AST ALT Alkaline Phosphatase Lactate Dehydrogenase Troponin T C-Reactive Protein Total Protein Albumin Prealbumin Triglycerides Cholesterol LDL Cholesterol Direct HDL Cholesterol PTH Intact Urine pH Urine WBC (Auto) Urine Creatinine Urine Total Protein Fluid Total Protein Vancomycin Trough Rheumatoid Factor Complement C4 Miscellaneous Test Crossmatch 09/06/16 09/06/16 09/06/16 04:12 05:59 07:32 WBC RBC Hgb Hct MCV MCH MCHC RDW Plt Count Lymph % (Auto) [place] % (Auto) Lymph # [place] # Baso # Seg Neutrophils % Seg Neuts % (Manual) Lymphocytes % (Manual) Monocytes % (Manual) Eosinophils % (Manual) Basophils % (Manual) Nucleated RBC % Seg Neutrophils # Seg Neutrophils # Man Lymphocytes # (Manual) Monocytes # (Manual) Eosinophils # (Manual) Basophils # (Manual) PT INR Fibrinogen dRVVT Confirm Interp Factor V Activity POC ABG pH 7.514 H POC ABG pCO2 29.1 L POC ABG pO2 72 L ABG pO2 ABG HCO3 ABG Base Excess ABG Hemoglobin Oxyhemoglobin Sodium 133 L Potassium 3.4 L Chloride 94.9 L Carbon Dioxide 19 L BUN 30 H Creatinine 2.1 H Glucose 139 H POC Glucose 146 H Lactic Acid Calcium Phosphorus Magnesium Direct Bilirubin AST ALT Alkaline Phosphatase Lactate Dehydrogenase Troponin T C-Reactive Protein Total Protein Albumin Prealbumin Triglycerides Cholesterol LDL Cholesterol Direct HDL Cholesterol PTH Intact Urine pH Urine WBC (Auto) Urine Creatinine Urine Total Protein Fluid Total Protein Vancomycin Trough Rheumatoid Factor Complement C4 Miscellaneous Test Crossmatch 09/06/16 09/06/16 09/06/16 11:57 17:58 19:02 WBC RBC Hgb Hct MCV MCH MCHC RDW Plt Count Lymph % (Auto) [place] % (Auto) Lymph # [place] # Baso # Seg Neutrophils % Seg Neuts % (Manual) Lymphocytes % (Manual) Monocytes % (Manual) Eosinophils % (Manual) Basophils % (Manual) Nucleated RBC % Seg Neutrophils # Seg Neutrophils # Man Lymphocytes # (Manual) Monocytes # (Manual) Eosinophils # (Manual) Basophils # (Manual) PT INR Fibrinogen dRVVT Confirm Interp Factor V Activity POC ABG pH 7.465 H POC ABG pCO2 32.0 L POC ABG pO2 ABG pO2 ABG HCO3 ABG Base Excess ABG Hemoglobin Oxyhemoglobin Sodium Potassium Chloride Carbon Dioxide BUN Creatinine Glucose POC Glucose 165 H 160 H Lactic Acid Calcium Phosphorus Magnesium Direct Bilirubin AST ALT Alkaline Phosphatase Lactate Dehydrogenase Troponin T C-Reactive Protein Total Protein Albumin Prealbumin Triglycerides Cholesterol LDL Cholesterol Direct HDL Cholesterol PTH Intact Urine pH Urine WBC (Auto) Urine Creatinine Urine Total Protein Fluid Total Protein Vancomycin Trough Rheumatoid Factor Complement C4 Miscellaneous Test Crossmatch 09/06/16 09/07/16 09/07/16 23:45 02:47 02:47 WBC RBC Hgb Hct MCV MCH MCHC RDW Plt Count Lymph % (Auto) [place] % (Auto) Lymph # [place] # Baso # Seg Neutrophils % Seg Neuts % (Manual) Lymphocytes % (Manual) Monocytes % (Manual) Eosinophils % (Manual) Basophils % (Manual) Nucleated RBC % Seg Neutrophils # Seg Neutrophils # Man Lymphocytes # (Manual) Monocytes # (Manual) Eosinophils # (Manual) Basophils # (Manual) PT INR Fibrinogen dRVVT Confirm Interp Factor V Activity POC ABG pH POC ABG pCO2 POC ABG pO2 ABG pO2 ABG HCO3 ABG Base Excess ABG Hemoglobin Oxyhemoglobin Sodium Potassium Chloride Carbon Dioxide BUN Creatinine Glucose POC Glucose 204 H Lactic Acid Calcium Phosphorus Magnesium Direct Bilirubin AST ALT Alkaline Phosphatase Lactate Dehydrogenase Troponin T C-Reactive Protein Total Protein Albumin Prealbumin Triglycerides Cholesterol LDL Cholesterol Direct HDL Cholesterol PTH Intact Urine pH Urine WBC (Auto) 68.0 H Urine Creatinine 106.1 H Urine Total Protein Fluid Total Protein Vancomycin Trough Rheumatoid Factor Complement C4 Miscellaneous Test Crossmatch 09/07/16 09/07/16 09/07/16 04:50 06:19 06:39 WBC RBC Hgb Hct MCV MCH MCHC RDW Plt Count Lymph % (Auto) [place] % (Auto) Lymph # [place] # Baso # Seg Neutrophils % Seg Neuts % (Manual) Lymphocytes % (Manual) Monocytes % (Manual) Eosinophils % (Manual) Basophils % (Manual) Nucleated RBC % Seg Neutrophils # Seg Neutrophils # Man Lymphocytes # (Manual) Monocytes # (Manual) Eosinophils # (Manual) Basophils # (Manual) PT INR Fibrinogen dRVVT Confirm Interp Factor V Activity POC ABG pH 7.457 H POC ABG pCO2 32.1 L POC ABG pO2 76 L ABG pO2 ABG HCO3 ABG Base Excess ABG Hemoglobin Oxyhemoglobin Sodium 132 L Potassium Chloride 94.7 L Carbon Dioxide BUN 53 H Creatinine 2.9 H Glucose 151 H POC Glucose 149 H Lactic Acid Calcium Phosphorus Magnesium Direct Bilirubin AST ALT Alkaline Phosphatase Lactate Dehydrogenase Troponin T C-Reactive Protein Total Protein Albumin Prealbumin Triglycerides Cholesterol LDL Cholesterol Direct HDL Cholesterol PTH Intact Urine pH Urine WBC (Auto) Urine Creatinine Urine Total Protein Fluid Total Protein Vancomycin Trough Rheumatoid Factor Complement C4 Miscellaneous Test Crossmatch 09/07/16 09/07/16 09/07/16 09:20 11:43 11:43 WBC 19.4 H RBC Hgb 8.3 L Hct 26.4 L D MCV 72 L D MCH 22 L MCHC RDW 17.9 H Plt Count Lymph % (Auto) 8.5 L [place] % (Auto) Lymph # [place] # 1.0 H Baso # Seg Neutrophils % 85.8 H Seg Neuts % (Manual) Lymphocytes % (Manual) Monocytes % (Manual) Eosinophils % (Manual) Basophils % (Manual) Nucleated RBC % Seg Neutrophils # 16.6 H Seg Neutrophils # Man Lymphocytes # (Manual) Monocytes # (Manual) Eosinophils # (Manual) Basophils # (Manual) PT INR Fibrinogen dRVVT Confirm Interp Factor V Activity POC ABG pH POC ABG pCO2 POC ABG pO2 ABG pO2 ABG HCO3 ABG Base Excess ABG Hemoglobin Oxyhemoglobin Sodium 134 L Potassium Chloride 97.2 L Carbon Dioxide 20 L BUN 58 H Creatinine 2.9 H Glucose 147 H POC Glucose Lactic Acid Calcium Phosphorus 2.40 L Magnesium 2.40 H Direct Bilirubin AST ALT Alkaline Phosphatase Lactate Dehydrogenase Troponin T C-Reactive Protein Total Protein 5.8 L Albumin 2.2 L Prealbumin Triglycerides Cholesterol LDL Cholesterol Direct HDL Cholesterol PTH Intact Urine pH Urine WBC (Auto) Urine Creatinine Urine Total Protein Fluid Total Protein Vancomycin Trough Rheumatoid Factor Complement C4 58 H Miscellaneous Test Crossmatch 09/07/16 09/07/16 09/07/16 11:50 16:00 17:31 WBC RBC Hgb Hct MCV MCH MCHC RDW Plt Count Lymph % (Auto) [place] % (Auto) Lymph # [place] # Baso # Seg Neutrophils % Seg Neuts % (Manual) Lymphocytes % (Manual) Monocytes % (Manual) Eosinophils % (Manual) Basophils % (Manual) Nucleated RBC % Seg Neutrophils # Seg Neutrophils # Man Lymphocytes # (Manual) Monocytes # (Manual) Eosinophils # (Manual) Basophils # (Manual) PT INR Fibrinogen dRVVT Confirm Interp Factor V Activity POC ABG pH POC ABG pCO2 POC ABG pO2 158 H ABG pO2 ABG HCO3 ABG Base Excess ABG Hemoglobin Oxyhemoglobin Sodium Potassium Chloride Carbon Dioxide BUN Creatinine Glucose POC Glucose 175 H Lactic Acid Calcium Phosphorus Magnesium Direct Bilirubin AST ALT Alkaline Phosphatase Lactate Dehydrogenase Troponin T C-Reactive Protein Total Protein Albumin Prealbumin Triglycerides Cholesterol LDL Cholesterol Direct HDL Cholesterol PTH Intact Urine pH Urine WBC (Auto) Urine Creatinine 66.3 H Urine Total Protein Fluid Total Protein Vancomycin Trough Rheumatoid Factor Complement C4 Miscellaneous Test Crossmatch 09/07/16 09/08/16 09/08/16 23:50 05:46 06:18 WBC 17.8 H RBC 3.58 L Hgb 8.1 L Hct 25.5 L MCV 71 L MCH 23 L MCHC RDW 18.4 H Plt Count Lymph % (Auto) [place] % (Auto) Lymph # [place] # Baso # Seg Neutrophils % Seg Neuts % (Manual) 92.0 H Lymphocytes % (Manual) 6.0 L Monocytes % (Manual) Eosinophils % (Manual) Basophils % (Manual) Nucleated RBC % Seg Neutrophils # Seg Neutrophils # Man 16.4 H Lymphocytes # (Manual) 1.1 L Monocytes # (Manual) Eosinophils # (Manual) Basophils # (Manual) PT INR Fibrinogen dRVVT Confirm Interp Factor V Activity POC ABG pH POC ABG pCO2 34.3 L POC ABG pO2 71 L ABG pO2 ABG HCO3 ABG Base Excess ABG Hemoglobin Oxyhemoglobin Sodium Potassium Chloride Carbon Dioxide BUN Creatinine Glucose POC Glucose 216 H Lactic Acid Calcium Phosphorus Magnesium Direct Bilirubin AST ALT Alkaline Phosphatase Lactate Dehydrogenase Troponin T C-Reactive Protein Total Protein Albumin Prealbumin Triglycerides Cholesterol LDL Cholesterol Direct HDL Cholesterol PTH Intact Urine pH Urine WBC (Auto) Urine Creatinine Urine Total Protein Fluid Total Protein Vancomycin Trough Rheumatoid Factor Complement C4 Miscellaneous Test Crossmatch 09/08/16 09/08/16 09/08/16 06:18 06:51 10:55 WBC RBC Hgb Hct MCV MCH MCHC RDW Plt Count Lymph % (Auto) [place] % (Auto) Lymph # [place] # Baso # Seg Neutrophils % Seg Neuts % (Manual) Lymphocytes % (Manual) Monocytes % (Manual) Eosinophils % (Manual) Basophils % (Manual) Nucleated RBC % Seg Neutrophils # Seg Neutrophils # Man Lymphocytes # (Manual) Monocytes # (Manual) Eosinophils # (Manual) Basophils # (Manual) PT INR Fibrinogen dRVVT Confirm Interp Factor V Activity POC ABG pH POC ABG pCO2 POC ABG pO2 ABG pO2 ABG HCO3 ABG Base Excess ABG Hemoglobin Oxyhemoglobin Sodium 133 L Potassium Chloride 96.9 L Carbon Dioxide 20 L BUN 63 H Creatinine 2.7 H Glucose 195 H POC Glucose 204 H 169 H Lactic Acid Calcium Phosphorus Magnesium Direct Bilirubin AST ALT Alkaline Phosphatase Lactate Dehydrogenase Troponin T C-Reactive Protein Total Protein Albumin Prealbumin Triglycerides Cholesterol LDL Cholesterol Direct HDL Cholesterol PTH Intact Urine pH Urine WBC (Auto) Urine Creatinine Urine Total Protein Fluid Total Protein Vancomycin Trough Rheumatoid Factor Complement C4 Miscellaneous Test Crossmatch 09/08/16 09/08/16 09/08/16 11:48 11:48 11:48 WBC RBC Hgb Hct MCV MCH MCHC RDW Plt Count Lymph % (Auto) [place] % (Auto) Lymph # [place] # Baso # Seg Neutrophils % Seg Neuts % (Manual) Lymphocytes % (Manual) Monocytes % (Manual) Eosinophils % (Manual) Basophils % (Manual) Nucleated RBC % Seg Neutrophils # Seg Neutrophils # Man Lymphocytes # (Manual) Monocytes # (Manual) Eosinophils # (Manual) Basophils # (Manual) PT INR Fibrinogen 750 H dRVVT Confirm Interp Factor V Activity POC ABG pH POC ABG pCO2 POC ABG pO2 ABG pO2 ABG HCO3 ABG Base Excess ABG Hemoglobin Oxyhemoglobin Sodium Potassium Chloride Carbon Dioxide BUN Creatinine Glucose POC Glucose Lactic Acid Calcium Phosphorus Magnesium Direct Bilirubin AST ALT Alkaline Phosphatase Lactate Dehydrogenase Troponin T C-Reactive Protein 15.70 H Total Protein Albumin Prealbumin Triglycerides Cholesterol LDL Cholesterol Direct HDL Cholesterol PTH Intact Urine pH Urine WBC (Auto) Urine Creatinine Urine Total Protein Fluid Total Protein Vancomycin Trough Rheumatoid Factor 24 H Complement C4 Miscellaneous Test Crossmatch 09/08/16 09/08/16 09/09/16 15:35 18:25 00:24 WBC RBC Hgb Hct MCV MCH MCHC RDW Plt Count Lymph % (Auto) [place] % (Auto) Lymph # [place] # Baso # Seg Neutrophils % Seg Neuts % (Manual) Lymphocytes % (Manual) Monocytes % (Manual) Eosinophils % (Manual) Basophils % (Manual) Nucleated RBC % Seg Neutrophils # Seg Neutrophils # Man Lymphocytes # (Manual) Monocytes # (Manual) Eosinophils # (Manual) Basophils # (Manual) PT INR Fibrinogen dRVVT Confirm Interp Factor V Activity 182 H POC ABG pH POC ABG pCO2 POC ABG pO2 ABG pO2 ABG HCO3 ABG Base Excess ABG Hemoglobin Oxyhemoglobin Sodium Potassium Chloride Carbon Dioxide BUN Creatinine Glucose POC Glucose 184 H 216 H Lactic Acid Calcium Phosphorus Magnesium Direct Bilirubin AST ALT Alkaline Phosphatase Lactate Dehydrogenase Troponin T C-Reactive Protein Total Protein Albumin Prealbumin Triglycerides Cholesterol LDL Cholesterol Direct HDL Cholesterol PTH Intact Urine pH Urine WBC (Auto) Urine Creatinine Urine Total Protein Fluid Total Protein Vancomycin Trough Rheumatoid Factor Complement C4 Miscellaneous Test Crossmatch 09/09/16 09/09/16 09/09/16 03:00 03:00 04:04 WBC 27.9 H RBC Hgb 8.7 L Hct 28.1 L MCV 72 L MCH 22 L MCHC RDW 18.4 H Plt Count 485 H Lymph % (Auto) [place] % (Auto) Lymph # [place] # Baso # Seg Neutrophils % Seg Neuts % (Manual) 77.0 H Lymphocytes % (Manual) 9.0 L Monocytes % (Manual) Eosinophils % (Manual) Basophils % (Manual) Nucleated RBC % Seg Neutrophils # Seg Neutrophils # Man 21.5 H Lymphocytes # (Manual) Monocytes # (Manual) 2.0 H Eosinophils # (Manual) Basophils # (Manual) PT INR Fibrinogen dRVVT Confirm Interp Factor V Activity POC ABG pH POC ABG pCO2 POC ABG pO2 121 H ABG pO2 ABG HCO3 ABG Base Excess ABG Hemoglobin Oxyhemoglobin Sodium 135 L Potassium Chloride 96.3 L Carbon Dioxide 21 L BUN 83 H Creatinine 3.0 H Glucose 135 H POC Glucose Lactic Acid Calcium Phosphorus Magnesium Direct Bilirubin AST ALT Alkaline Phosphatase Lactate Dehydrogenase Troponin T C-Reactive Protein Total Protein Albumin Prealbumin Triglycerides Cholesterol LDL Cholesterol Direct HDL Cholesterol PTH Intact Urine pH Urine WBC (Auto) Urine Creatinine Urine Total Protein Fluid Total Protein Vancomycin Trough Rheumatoid Factor Complement C4 Miscellaneous Test Crossmatch 09/09/16 09/09/16 09/09/16 05:41 11:55 14:13 WBC RBC Hgb Hct MCV MCH MCHC RDW Plt Count Lymph % (Auto) [place] % (Auto) Lymph # [place] # Baso # Seg Neutrophils % Seg Neuts % (Manual) Lymphocytes % (Manual) Monocytes % (Manual) Eosinophils % (Manual) Basophils % (Manual) Nucleated RBC % Seg Neutrophils # Seg Neutrophils # Man Lymphocytes # (Manual) Monocytes # (Manual) Eosinophils # (Manual) Basophils # (Manual) PT INR Fibrinogen dRVVT Confirm Interp Factor V Activity POC ABG pH POC ABG pCO2 POC ABG pO2 ABG pO2 ABG HCO3 ABG Base Excess ABG Hemoglobin Oxyhemoglobin Sodium Potassium Chloride Carbon Dioxide BUN Creatinine Glucose POC Glucose 155 H 186 H Lactic Acid Calcium Phosphorus Magnesium Direct Bilirubin AST ALT Alkaline Phosphatase Lactate Dehydrogenase Troponin T C-Reactive Protein Total Protein Albumin Prealbumin Triglycerides Cholesterol LDL Cholesterol Direct HDL Cholesterol PTH Intact Urine pH Urine WBC (Auto) 25.0 H Urine Creatinine Urine Total Protein Fluid Total Protein Vancomycin Trough Rheumatoid Factor Complement C4 Miscellaneous Test Crossmatch 09/09/16 09/09/16 09/10/16 17:33 23:13 05:09 WBC RBC Hgb Hct MCV MCH MCHC RDW Plt Count Lymph % (Auto) [place] % (Auto) Lymph # [place] # Baso # Seg Neutrophils % Seg Neuts % (Manual) Lymphocytes % (Manual) Monocytes % (Manual) Eosinophils % (Manual) Basophils % (Manual) Nucleated RBC % Seg Neutrophils # Seg Neutrophils # Man Lymphocytes # (Manual) Monocytes # (Manual) Eosinophils # (Manual) Basophils # (Manual) PT INR Fibrinogen dRVVT Confirm Interp Factor V Activity POC ABG pH POC ABG pCO2 POC ABG pO2 74 L ABG pO2 ABG HCO3 ABG Base Excess ABG Hemoglobin Oxyhemoglobin Sodium Potassium Chloride Carbon Dioxide BUN Creatinine Glucose POC Glucose 211 H 215 H Lactic Acid Calcium Phosphorus Magnesium Direct Bilirubin AST ALT Alkaline Phosphatase Lactate Dehydrogenase Troponin T C-Reactive Protein Total Protein Albumin Prealbumin Triglycerides Cholesterol LDL Cholesterol Direct HDL Cholesterol PTH Intact Urine pH Urine WBC (Auto) Urine Creatinine Urine Total Protein Fluid Total Protein Vancomycin Trough Rheumatoid Factor Complement C4 Miscellaneous Test Crossmatch 09/10/16 09/10/16 09/10/16 05:17 05:17 11:31 WBC 15.8 H RBC 3.25 L Hgb 7.3 L Hct 22.9 L MCV 71 L MCH 23 L MCHC RDW 18.4 H Plt Count Lymph % (Auto) [place] % (Auto) Lymph # [place] # Baso # Seg Neutrophils % Seg Neuts % (Manual) 91.0 H Lymphocytes % (Manual) 4.0 L Monocytes % (Manual) Eosinophils % (Manual) Basophils % (Manual) Nucleated RBC % Seg Neutrophils # Seg Neutrophils # Man 14.4 H Lymphocytes # (Manual) 0.6 L Monocytes # (Manual) Eosinophils # (Manual) Basophils # (Manual) PT INR Fibrinogen dRVVT Confirm Interp Factor V Activity POC ABG pH POC ABG pCO2 POC ABG pO2 ABG pO2 ABG HCO3 ABG Base Excess ABG Hemoglobin Oxyhemoglobin Sodium Potassium Chloride Carbon Dioxide 21 L BUN 93 H Creatinine 2.9 H Glucose 146 H POC Glucose 188 H Lactic Acid Calcium 8.1 L Phosphorus Magnesium Direct Bilirubin AST ALT Alkaline Phosphatase Lactate Dehydrogenase Troponin T C-Reactive Protein Total Protein Albumin Prealbumin Triglycerides Cholesterol LDL Cholesterol Direct HDL Cholesterol PTH Intact Urine pH Urine WBC (Auto) Urine Creatinine Urine Total Protein Fluid Total Protein Vancomycin Trough Rheumatoid Factor Complement C4 Miscellaneous Test Crossmatch 09/10/16 09/10/16 09/10/16 13:17 17:20 23:32 WBC RBC Hgb Hct MCV MCH MCHC RDW Plt Count Lymph % (Auto) [place] % (Auto) Lymph # [place] # Baso # Seg Neutrophils % Seg Neuts % (Manual) Lymphocytes % (Manual) Monocytes % (Manual) Eosinophils % (Manual) Basophils % (Manual) Nucleated RBC % Seg Neutrophils # Seg Neutrophils # Man Lymphocytes # (Manual) Monocytes # (Manual) Eosinophils # (Manual) Basophils # (Manual) PT INR Fibrinogen dRVVT Confirm Interp Factor V Activity POC ABG pH POC ABG pCO2 POC ABG pO2 ABG pO2 ABG HCO3 ABG Base Excess ABG Hemoglobin Oxyhemoglobin Sodium Potassium Chloride Carbon Dioxide BUN Creatinine Glucose POC Glucose 199 H 186 H Lactic Acid Calcium Phosphorus Magnesium Direct Bilirubin AST ALT Alkaline Phosphatase Lactate Dehydrogenase Troponin T C-Reactive Protein Total Protein Albumin Prealbumin Triglycerides Cholesterol LDL Cholesterol Direct HDL Cholesterol PTH Intact Urine pH Urine WBC (Auto) Urine Creatinine Urine Total Protein Fluid Total Protein Vancomycin Trough Rheumatoid Factor Complement C4 Miscellaneous Test Crossmatch See Detail 09/11/16 09/11/16 09/11/16 05:10 05:10 05:17 WBC 28.4 H RBC Hgb 9.2 L Hct 29.3 L D MCV 73 L MCH 23 L MCHC RDW 18.9 H Plt Count 452 H Lymph % (Auto) [place] % (Auto) Lymph # [place] # Baso # Seg Neutrophils % Seg Neuts % (Manual) 89.5 H Lymphocytes % (Manual) 2.0 L Monocytes % (Manual) Eosinophils % (Manual) Basophils % (Manual) Nucleated RBC % Seg Neutrophils # Seg Neutrophils # Man 25.4 H Lymphocytes # (Manual) 0.6 L Monocytes # (Manual) 1.3 H Eosinophils # (Manual) Basophils # (Manual) PT INR Fibrinogen dRVVT Confirm Interp Factor V Activity POC ABG pH POC ABG pCO2 POC ABG pO2 ABG pO2 ABG HCO3 ABG Base Excess ABG Hemoglobin Oxyhemoglobin Sodium 136 L Potassium Chloride Carbon Dioxide 18 L BUN 107 H Creatinine 2.6 H Glucose 187 H POC Glucose 230 H Lactic Acid Calcium 8.3 L Phosphorus Magnesium Direct Bilirubin AST ALT Alkaline Phosphatase Lactate Dehydrogenase Troponin T C-Reactive Protein Total Protein Albumin Prealbumin Triglycerides Cholesterol LDL Cholesterol Direct HDL Cholesterol PTH Intact Urine pH Urine WBC (Auto) Urine Creatinine Urine Total Protein Fluid Total Protein Vancomycin Trough Rheumatoid Factor Complement C4 Miscellaneous Test Crossmatch 09/11/16 09/11/16 09/11/16 05:55 12:02 17:32 WBC RBC Hgb Hct MCV MCH MCHC RDW Plt Count Lymph % (Auto) [place] % (Auto) Lymph # [place] # Baso # Seg Neutrophils % Seg Neuts % (Manual) Lymphocytes % (Manual) Monocytes % (Manual) Eosinophils % (Manual) Basophils % (Manual) Nucleated RBC % Seg Neutrophils # Seg Neutrophils # Man Lymphocytes # (Manual) Monocytes # (Manual) Eosinophils # (Manual) Basophils # (Manual) PT INR Fibrinogen dRVVT Confirm Interp Factor V Activity POC ABG pH POC ABG pCO2 33.8 L POC ABG pO2 ABG pO2 ABG HCO3 ABG Base Excess ABG Hemoglobin Oxyhemoglobin Sodium Potassium Chloride Carbon Dioxide BUN Creatinine Glucose POC Glucose 191 H 239 H Lactic Acid Calcium Phosphorus Magnesium Direct Bilirubin AST ALT Alkaline Phosphatase Lactate Dehydrogenase Troponin T C-Reactive Protein Total Protein Albumin Prealbumin Triglycerides Cholesterol LDL Cholesterol Direct HDL Cholesterol PTH Intact Urine pH Urine WBC (Auto) Urine Creatinine Urine Total Protein Fluid Total Protein Vancomycin Trough Rheumatoid Factor Complement C4 Miscellaneous Test Crossmatch 09/11/16 09/12/16 09/12/16 23:52 05:09 05:32 WBC RBC Hgb Hct MCV MCH MCHC RDW Plt Count Lymph % (Auto) [place] % (Auto) Lymph # [place] # Baso # Seg Neutrophils % Seg Neuts % (Manual) Lymphocytes % (Manual) Monocytes % (Manual) Eosinophils % (Manual) Basophils % (Manual) Nucleated RBC % Seg Neutrophils # Seg Neutrophils # Man Lymphocytes # (Manual) Monocytes # (Manual) Eosinophils # (Manual) Basophils # (Manual) PT INR Fibrinogen dRVVT Confirm Interp Factor V Activity POC ABG pH POC ABG pCO2 34.6 L POC ABG pO2 ABG pO2 ABG HCO3 ABG Base Excess ABG Hemoglobin Oxyhemoglobin Sodium Potassium Chloride Carbon Dioxide BUN Creatinine Glucose POC Glucose 265 H 184 H Lactic Acid Calcium Phosphorus Magnesium Direct Bilirubin AST ALT Alkaline Phosphatase Lactate Dehydrogenase Troponin T C-Reactive Protein Total Protein Albumin Prealbumin Triglycerides Cholesterol LDL Cholesterol Direct HDL Cholesterol PTH Intact Urine pH Urine WBC (Auto) Urine Creatinine Urine Total Protein Fluid Total Protein Vancomycin Trough Rheumatoid Factor Complement C4 Miscellaneous Test Crossmatch 09/12/16 09/12/16 09/12/16 06:45 06:45 07:22 WBC 31.7 H RBC 3.54 L Hgb 8.3 L Hct 25.9 L MCV 73 L MCH 23 L MCHC RDW 18.9 H Plt Count Lymph % (Auto) [place] % (Auto) Lymph # [place] # Baso # Seg Neutrophils % Seg Neuts % (Manual) 88.5 H Lymphocytes % (Manual) 4.5 L Monocytes % (Manual) Eosinophils % (Manual) Basophils % (Manual) Nucleated RBC % Seg Neutrophils # Seg Neutrophils # Man 28.1 H Lymphocytes # (Manual) Monocytes # (Manual) 1.0 H Eosinophils # (Manual) Basophils # (Manual) PT INR Fibrinogen dRVVT Confirm Interp Factor V Activity POC ABG pH POC ABG pCO2 POC ABG pO2 ABG pO2 ABG HCO3 ABG Base Excess ABG Hemoglobin Oxyhemoglobin Sodium Potassium Chloride Carbon Dioxide 20 L BUN 115 H Creatinine 2.7 H Glucose 165 H POC Glucose Lactic Acid Calcium 8.0 L Phosphorus Magnesium Direct Bilirubin AST ALT Alkaline Phosphatase Lactate Dehydrogenase Troponin T C-Reactive Protein Total Protein Albumin Prealbumin Triglycerides 217 H Cholesterol LDL Cholesterol Direct HDL Cholesterol PTH Intact Urine pH Urine WBC (Auto) Urine Creatinine Urine Total Protein Fluid Total Protein Vancomycin Trough Rheumatoid Factor Complement C4 Miscellaneous Test Crossmatch 09/12/16 09/12/16 09/12/16 07:22 09:59 12:21 WBC RBC Hgb Hct MCV MCH MCHC RDW Plt Count Lymph % (Auto) [place] % (Auto) Lymph # [place] # Baso # Seg Neutrophils % Seg Neuts % (Manual) Lymphocytes % (Manual) Monocytes % (Manual) Eosinophils % (Manual) Basophils % (Manual) Nucleated RBC % Seg Neutrophils # Seg Neutrophils # Man Lymphocytes # (Manual) Monocytes # (Manual) Eosinophils # (Manual) Basophils # (Manual) PT INR Fibrinogen dRVVT Confirm Interp Positive H Factor V Activity POC ABG pH POC ABG pCO2 POC ABG pO2 ABG pO2 ABG HCO3 ABG Base Excess ABG Hemoglobin Oxyhemoglobin Sodium Potassium Chloride Carbon Dioxide BUN Creatinine Glucose POC Glucose 224 H Lactic Acid Calcium Phosphorus Magnesium Direct Bilirubin AST ALT Alkaline Phosphatase Lactate Dehydrogenase Troponin T C-Reactive Protein 1.70 H Total Protein Albumin Prealbumin Triglycerides Cholesterol LDL Cholesterol Direct HDL Cholesterol PTH Intact Urine pH Urine WBC (Auto) Urine Creatinine Urine Total Protein Fluid Total Protein Vancomycin Trough Rheumatoid Factor Complement C4 Miscellaneous Test Crossmatch 09/12/16 09/12/16 09/13/16 16:51 23:28 04:00 WBC 45.0 H* RBC Hgb 9.4 L Hct MCV 75 L MCH 23 L MCHC RDW 19.0 H Plt Count 470 H Lymph % (Auto) [place] % (Auto) Lymph # [place] # Baso # Seg Neutrophils % Seg Neuts % (Manual) 89.0 H Lymphocytes % (Manual) 5.0 L Monocytes % (Manual) Eosinophils % (Manual) Basophils % (Manual) Nucleated RBC % Seg Neutrophils # Seg Neutrophils # Man 40.1 H Lymphocytes # (Manual) Monocytes # (Manual) Eosinophils # (Manual) Basophils # (Manual) PT INR Fibrinogen dRVVT Confirm Interp Factor V Activity POC ABG pH POC ABG pCO2 POC ABG pO2 ABG pO2 ABG HCO3 ABG Base Excess ABG Hemoglobin Oxyhemoglobin Sodium Potassium Chloride Carbon Dioxide BUN Creatinine Glucose POC Glucose 169 H 150 H Lactic Acid Calcium Phosphorus Magnesium Direct Bilirubin AST ALT Alkaline Phosphatase Lactate Dehydrogenase Troponin T C-Reactive Protein Total Protein Albumin Prealbumin Triglycerides Cholesterol LDL Cholesterol Direct HDL Cholesterol PTH Intact Urine pH Urine WBC (Auto) Urine Creatinine Urine Total Protein Fluid Total Protein Vancomycin Trough Rheumatoid Factor Complement C4 Miscellaneous Test Crossmatch 09/13/16 09/13/16 09/13/16 04:00 11:26 17:31 WBC RBC Hgb Hct MCV MCH MCHC RDW Plt Count Lymph % (Auto) [place] % (Auto) Lymph # [place] # Baso # Seg Neutrophils % Seg Neuts % (Manual) Lymphocytes % (Manual) Monocytes % (Manual) Eosinophils % (Manual) Basophils % (Manual) Nucleated RBC % Seg Neutrophils # Seg Neutrophils # Man Lymphocytes # (Manual) Monocytes # (Manual) Eosinophils # (Manual) Basophils # (Manual) PT INR Fibrinogen dRVVT Confirm Interp Factor V Activity POC ABG pH POC ABG pCO2 POC ABG pO2 ABG pO2 ABG HCO3 ABG Base Excess ABG Hemoglobin Oxyhemoglobin Sodium Potassium Chloride Carbon Dioxide 20 L BUN 116 H Creatinine 3.0 H Glucose 172 H POC Glucose 140 H 183 H Lactic Acid Calcium Phosphorus Magnesium Direct Bilirubin AST ALT Alkaline Phosphatase Lactate Dehydrogenase Troponin T C-Reactive Protein Total Protein 6.2 L Albumin 2.9 L Prealbumin Triglycerides Cholesterol LDL Cholesterol Direct HDL Cholesterol PTH Intact Urine pH Urine WBC (Auto) Urine Creatinine Urine Total Protein Fluid Total Protein Vancomycin Trough Rheumatoid Factor Complement C4 Miscellaneous Test Crossmatch 09/13/16 09/14/16 09/14/16 23:23 04:06 04:07 WBC 29.4 H RBC Hgb 8.9 L Hct 27.3 L MCV 75 L MCH 24 L MCHC RDW 19.1 H Plt Count Lymph % (Auto) [place] % (Auto) Lymph # [place] # Baso # Seg Neutrophils % Seg Neuts % (Manual) 84.0 H Lymphocytes % (Manual) 6.0 L Monocytes % (Manual) 9.0 H Eosinophils % (Manual) Basophils % (Manual) Nucleated RBC % Seg Neutrophils # Seg Neutrophils # Man 24.7 H Lymphocytes # (Manual) Monocytes # (Manual) 2.6 H Eosinophils # (Manual) Basophils # (Manual) PT INR Fibrinogen dRVVT Confirm Interp Factor V Activity POC ABG pH 7.342 L POC ABG pCO2 POC ABG pO2 116 H ABG pO2 ABG HCO3 ABG Base Excess ABG Hemoglobin Oxyhemoglobin Sodium Potassium Chloride Carbon Dioxide BUN Creatinine Glucose POC Glucose 154 H Lactic Acid Calcium Phosphorus Magnesium Direct Bilirubin AST ALT Alkaline Phosphatase Lactate Dehydrogenase Troponin T C-Reactive Protein Total Protein Albumin Prealbumin Triglycerides Cholesterol LDL Cholesterol Direct HDL Cholesterol PTH Intact Urine pH Urine WBC (Auto) Urine Creatinine Urine Total Protein Fluid Total Protein Vancomycin Trough Rheumatoid Factor Complement C4 Miscellaneous Test Crossmatch 09/14/16 09/14/16 09/14/16 04:07 05:29 12:19 WBC RBC Hgb Hct MCV MCH MCHC RDW Plt Count Lymph % (Auto) [place] % (Auto) Lymph # [place] # Baso # Seg Neutrophils % Seg Neuts % (Manual) Lymphocytes % (Manual) Monocytes % (Manual) Eosinophils % (Manual) Basophils % (Manual) Nucleated RBC % Seg Neutrophils # Seg Neutrophils # Man Lymphocytes # (Manual) Monocytes # (Manual) Eosinophils # (Manual) Basophils # (Manual) PT INR Fibrinogen dRVVT Confirm Interp Factor V Activity POC ABG pH POC ABG pCO2 POC ABG pO2 ABG pO2 ABG HCO3 ABG Base Excess ABG Hemoglobin Oxyhemoglobin Sodium 136 L Potassium Chloride Carbon Dioxide 18 L BUN 121 H Creatinine 2.8 H Glucose 214 H POC Glucose 239 H 181 H Lactic Acid Calcium Phosphorus Magnesium Direct Bilirubin AST ALT Alkaline Phosphatase Lactate Dehydrogenase Troponin T C-Reactive Protein Total Protein Albumin Prealbumin Triglycerides Cholesterol LDL Cholesterol Direct HDL Cholesterol PTH Intact Urine pH Urine WBC (Auto) Urine Creatinine Urine Total Protein Fluid Total Protein Vancomycin Trough Rheumatoid Factor Complement C4 Miscellaneous Test Crossmatch 09/14/16 09/14/16 09/15/16 18:12 23:37 05:00 WBC 26.1 H RBC 3.05 L Hgb 7.2 L Hct 22.9 L MCV 75 L MCH 24 L MCHC RDW 19.0 H Plt Count Lymph % (Auto) [place] % (Auto) Lymph # [place] # Baso # Seg Neutrophils % Seg Neuts % (Manual) Lymphocytes % (Manual) Monocytes % (Manual) Eosinophils % (Manual) Basophils % (Manual) Nucleated RBC % Seg Neutrophils # Seg Neutrophils # Man Lymphocytes # (Manual) Monocytes # (Manual) Eosinophils # (Manual) Basophils # (Manual) PT INR Fibrinogen dRVVT Confirm Interp Factor V Activity POC ABG pH POC ABG pCO2 POC ABG pO2 ABG pO2 ABG HCO3 ABG Base Excess ABG Hemoglobin Oxyhemoglobin Sodium Potassium Chloride Carbon Dioxide BUN Creatinine Glucose POC Glucose 266 H 154 H Lactic Acid Calcium Phosphorus Magnesium Direct Bilirubin AST ALT Alkaline Phosphatase Lactate Dehydrogenase Troponin T C-Reactive Protein Total Protein Albumin Prealbumin Triglycerides Cholesterol LDL Cholesterol Direct HDL Cholesterol PTH Intact Urine pH Urine WBC (Auto) Urine Creatinine Urine Total Protein Fluid Total Protein Vancomycin Trough Rheumatoid Factor Complement C4 Miscellaneous Test Crossmatch 09/15/16 09/15/16 09/15/16 05:00 05:17 12:45 WBC RBC Hgb Hct MCV MCH MCHC RDW Plt Count Lymph % (Auto) [place] % (Auto) Lymph # [place] # Baso # Seg Neutrophils % Seg Neuts % (Manual) Lymphocytes % (Manual) Monocytes % (Manual) Eosinophils % (Manual) Basophils % (Manual) Nucleated RBC % Seg Neutrophils # Seg Neutrophils # Man Lymphocytes # (Manual) Monocytes # (Manual) Eosinophils # (Manual) Basophils # (Manual) PT INR Fibrinogen dRVVT Confirm Interp Factor V Activity POC ABG pH POC ABG pCO2 POC ABG pO2 ABG pO2 ABG HCO3 ABG Base Excess ABG Hemoglobin Oxyhemoglobin Sodium Potassium 5.2 H Chloride Carbon Dioxide 18 L BUN 139 H Creatinine 3.7 H Glucose 227 H POC Glucose 226 H 244 H Lactic Acid Calcium 8.3 L Phosphorus Magnesium Direct Bilirubin AST ALT Alkaline Phosphatase Lactate Dehydrogenase Troponin T C-Reactive Protein Total Protein Albumin Prealbumin Triglycerides Cholesterol LDL Cholesterol Direct HDL Cholesterol PTH Intact Urine pH Urine WBC (Auto) Urine Creatinine Urine Total Protein Fluid Total Protein Vancomycin Trough Rheumatoid Factor Complement C4 Miscellaneous Test Crossmatch 09/15/16 09/15/16 09/15/16 14:32 17:33 23:35 WBC RBC Hgb Hct MCV MCH MCHC RDW Plt Count Lymph % (Auto) [place] % (Auto) Lymph # [place] # Baso # Seg Neutrophils % Seg Neuts % (Manual) Lymphocytes % (Manual) Monocytes % (Manual) Eosinophils % (Manual) Basophils % (Manual) Nucleated RBC % Seg Neutrophils # Seg Neutrophils # Man Lymphocytes # (Manual) Monocytes # (Manual) Eosinophils # (Manual) Basophils # (Manual) PT INR Fibrinogen dRVVT Confirm Interp Factor V Activity POC ABG pH POC ABG pCO2 27.7 L POC ABG pO2 120 H ABG pO2 ABG HCO3 ABG Base Excess ABG Hemoglobin Oxyhemoglobin Sodium Potassium Chloride Carbon Dioxide BUN Creatinine Glucose POC Glucose 232 H 167 H Lactic Acid Calcium Phosphorus Magnesium Direct Bilirubin AST ALT Alkaline Phosphatase Lactate Dehydrogenase Troponin T C-Reactive Protein Total Protein Albumin Prealbumin Triglycerides Cholesterol LDL Cholesterol Direct HDL Cholesterol PTH Intact Urine pH Urine WBC (Auto) Urine Creatinine Urine Total Protein Fluid Total Protein Vancomycin Trough Rheumatoid Factor Complement C4 Miscellaneous Test Crossmatch 09/16/16 09/16/16 09/16/16 03:58 10:27 10:27 WBC 19.0 H RBC 2.77 L Hgb 6.5 L Hct 20.9 L MCV 76 L MCH 23 L MCHC RDW 19.3 H Plt Count Lymph % (Auto) 11.0 L [place] % (Auto) Lymph # [place] # 1.1 H Baso # Seg Neutrophils % 82.5 H Seg Neuts % (Manual) Lymphocytes % (Manual) Monocytes % (Manual) Eosinophils % (Manual) Basophils % (Manual) Nucleated RBC % Seg Neutrophils # 15.7 H Seg Neutrophils # Man Lymphocytes # (Manual) Monocytes # (Manual) Eosinophils # (Manual) Basophils # (Manual) PT INR Fibrinogen dRVVT Confirm Interp Factor V Activity POC ABG pH POC ABG pCO2 POC ABG pO2 ABG pO2 ABG HCO3 ABG Base Excess ABG Hemoglobin Oxyhemoglobin Sodium Potassium Chloride 109.3 H Carbon Dioxide 18 L BUN 139 H Creatinine 4.1 H Glucose 144 H POC Glucose 146 H Lactic Acid Calcium 8.1 L Phosphorus Magnesium Direct Bilirubin AST ALT Alkaline Phosphatase Lactate Dehydrogenase Troponin T C-Reactive Protein Total Protein Albumin Prealbumin Triglycerides Cholesterol LDL Cholesterol Direct HDL Cholesterol PTH Intact Urine pH Urine WBC (Auto) Urine Creatinine Urine Total Protein Fluid Total Protein Vancomycin Trough Rheumatoid Factor Complement C4 Miscellaneous Test Crossmatch 09/16/16 09/16/16 09/16/16 12:04 12:10 13:55 WBC RBC Hgb Hct MCV MCH MCHC RDW Plt Count Lymph % (Auto) [place] % (Auto) Lymph # [place] # Baso # Seg Neutrophils % Seg Neuts % (Manual) Lymphocytes % (Manual) Monocytes % (Manual) Eosinophils % (Manual) Basophils % (Manual) Nucleated RBC % Seg Neutrophils # Seg Neutrophils # Man Lymphocytes # (Manual) Monocytes # (Manual) Eosinophils # (Manual) Basophils # (Manual) PT INR Fibrinogen dRVVT Confirm Interp Factor V Activity POC ABG pH POC ABG pCO2 32.9 L POC ABG pO2 ABG pO2 ABG HCO3 ABG Base Excess ABG Hemoglobin Oxyhemoglobin Sodium Potassium Chloride Carbon Dioxide BUN Creatinine Glucose POC Glucose 185 H Lactic Acid Calcium Phosphorus Magnesium Direct Bilirubin AST ALT Alkaline Phosphatase Lactate Dehydrogenase Troponin T C-Reactive Protein Total Protein Albumin Prealbumin Triglycerides Cholesterol LDL Cholesterol Direct HDL Cholesterol PTH Intact Urine pH Urine WBC (Auto) Urine Creatinine Urine Total Protein Fluid Total Protein Vancomycin Trough Rheumatoid Factor Complement C4 Miscellaneous Test Crossmatch See Detail 09/16/16 09/16/16 09/16/16 17:55 19:19 23:48 WBC RBC Hgb Hct MCV MCH MCHC RDW Plt Count Lymph % (Auto) [place] % (Auto) Lymph # [place] # Baso # Seg Neutrophils % Seg Neuts % (Manual) Lymphocytes % (Manual) Monocytes % (Manual) Eosinophils % (Manual) Basophils % (Manual) Nucleated RBC % Seg Neutrophils # Seg Neutrophils # Man Lymphocytes # (Manual) Monocytes # (Manual) Eosinophils # (Manual) Basophils # (Manual) PT INR Fibrinogen dRVVT Confirm Interp Factor V Activity POC ABG pH POC ABG pCO2 POC ABG pO2 ABG pO2 ABG HCO3 ABG Base Excess ABG Hemoglobin Oxyhemoglobin Sodium Potassium Chloride Carbon Dioxide BUN Creatinine Glucose POC Glucose 222 H 107 H Lactic Acid Calcium Phosphorus Magnesium Direct Bilirubin AST ALT Alkaline Phosphatase Lactate Dehydrogenase Troponin T C-Reactive Protein Total Protein Albumin Prealbumin Triglycerides Cholesterol LDL Cholesterol Direct HDL Cholesterol PTH Intact Urine pH Urine WBC (Auto) Urine Creatinine 47.4 H Urine Total Protein 16 H Fluid Total Protein Vancomycin Trough Rheumatoid Factor Complement C4 Miscellaneous Test Crossmatch 09/17/16 09/17/16 09/17/16 03:45 03:45 04:55 WBC 19.6 H RBC 3.41 L Hgb 8.5 L Hct 26.7 L MCV 78 L MCH 25 L MCHC RDW 19.9 H Plt Count Lymph % (Auto) 9.3 L [place] % (Auto) Lymph # [place] # 1.2 H Baso # Seg Neutrophils % 83.9 H Seg Neuts % (Manual) Lymphocytes % (Manual) Monocytes % (Manual) Eosinophils % (Manual) Basophils % (Manual) Nucleated RBC % Seg Neutrophils # 16.4 H Seg Neutrophils # Man Lymphocytes # (Manual) Monocytes # (Manual) Eosinophils # (Manual) Basophils # (Manual) PT INR Fibrinogen dRVVT Confirm Interp Factor V Activity POC ABG pH POC ABG pCO2 POC ABG pO2 ABG pO2 ABG HCO3 ABG Base Excess ABG Hemoglobin Oxyhemoglobin Sodium 146 H Potassium 5.1 H Chloride 110.9 H Carbon Dioxide 16 L BUN 146 H Creatinine 4.0 H Glucose 108 H POC Glucose 133 H Lactic Acid Calcium Phosphorus Magnesium 3.00 H Direct Bilirubin AST ALT Alkaline Phosphatase Lactate Dehydrogenase Troponin T C-Reactive Protein Total Protein Albumin Prealbumin Triglycerides Cholesterol LDL Cholesterol Direct HDL Cholesterol PTH Intact Urine pH Urine WBC (Auto) Urine Creatinine Urine Total Protein Fluid Total Protein Vancomycin Trough Rheumatoid Factor Complement C4 Miscellaneous Test Crossmatch 09/17/16 09/17/16 09/17/16 11:15 17:33 23:47 WBC RBC Hgb Hct MCV MCH MCHC RDW Plt Count Lymph % (Auto) [place] % (Auto) Lymph # [place] # Baso # Seg Neutrophils % Seg Neuts % (Manual) Lymphocytes % (Manual) Monocytes % (Manual) Eosinophils % (Manual) Basophils % (Manual) Nucleated RBC % Seg Neutrophils # Seg Neutrophils # Man Lymphocytes # (Manual) Monocytes # (Manual) Eosinophils # (Manual) Basophils # (Manual) PT INR Fibrinogen dRVVT Confirm Interp Factor V Activity POC ABG pH POC ABG pCO2 POC ABG pO2 ABG pO2 ABG HCO3 ABG Base Excess ABG Hemoglobin Oxyhemoglobin Sodium Potassium Chloride Carbon Dioxide BUN Creatinine Glucose POC Glucose 176 H 246 H 148 H Lactic Acid Calcium Phosphorus Magnesium Direct Bilirubin AST ALT Alkaline Phosphatase Lactate Dehydrogenase Troponin T C-Reactive Protein Total Protein Albumin Prealbumin Triglycerides Cholesterol LDL Cholesterol Direct HDL Cholesterol PTH Intact Urine pH Urine WBC (Auto) Urine Creatinine Urine Total Protein Fluid Total Protein Vancomycin Trough Rheumatoid Factor Complement C4 Miscellaneous Test Crossmatch 09/18/16 09/18/16 09/18/16 05:33 08:31 08:31 WBC 18.0 H RBC 3.17 L Hgb 9.0 L Hct 25.7 L MCV MCH MCHC 35 H RDW 20.4 H Plt Count Lymph % (Auto) [place] % (Auto) Lymph # [place] # Baso # Seg Neutrophils % Seg Neuts % (Manual) Lymphocytes % (Manual) Monocytes % (Manual) Eosinophils % (Manual) Basophils % (Manual) Nucleated RBC % Seg Neutrophils # Seg Neutrophils # Man Lymphocytes # (Manual) Monocytes # (Manual) Eosinophils # (Manual) Basophils # (Manual) PT INR Fibrinogen dRVVT Confirm Interp Factor V Activity POC ABG pH POC ABG pCO2 POC ABG pO2 ABG pO2 ABG HCO3 ABG Base Excess ABG Hemoglobin Oxyhemoglobin Sodium Potassium Chloride Carbon Dioxide 15 L BUN 124 H Creatinine 3.8 H Glucose POC Glucose 120 H Lactic Acid Calcium 8.1 L Phosphorus Magnesium Direct Bilirubin AST ALT Alkaline Phosphatase Lactate Dehydrogenase Troponin T C-Reactive Protein Total Protein Albumin Prealbumin Triglycerides Cholesterol LDL Cholesterol Direct HDL Cholesterol PTH Intact Urine pH Urine WBC (Auto) Urine Creatinine Urine Total Protein Fluid Total Protein Vancomycin Trough Rheumatoid Factor Complement C4 Miscellaneous Test Crossmatch 09/18/16 09/18/16 09/18/16 12:03 15:34 17:50 WBC RBC Hgb Hct MCV MCH MCHC RDW Plt Count Lymph % (Auto) [place] % (Auto) Lymph # [place] # Baso # Seg Neutrophils % Seg Neuts % (Manual) Lymphocytes % (Manual) Monocytes % (Manual) Eosinophils % (Manual) Basophils % (Manual) Nucleated RBC % Seg Neutrophils # Seg Neutrophils # Man Lymphocytes # (Manual) Monocytes # (Manual) Eosinophils # (Manual) Basophils # (Manual) PT INR Fibrinogen dRVVT Confirm Interp Factor V Activity POC ABG pH POC ABG pCO2 25.7 L POC ABG pO2 66 L ABG pO2 ABG HCO3 ABG Base Excess ABG Hemoglobin Oxyhemoglobin Sodium Potassium Chloride Carbon Dioxide BUN Creatinine Glucose POC Glucose 156 H 220 H Lactic Acid Calcium Phosphorus Magnesium Direct Bilirubin AST ALT Alkaline Phosphatase Lactate Dehydrogenase Troponin T C-Reactive Protein Total Protein Albumin Prealbumin Triglycerides Cholesterol LDL Cholesterol Direct HDL Cholesterol PTH Intact Urine pH Urine WBC (Auto) Urine Creatinine Urine Total Protein Fluid Total Protein Vancomycin Trough Rheumatoid Factor Complement C4 Miscellaneous Test Crossmatch 09/19/16 09/19/16 09/19/16 06:21 09:50 09:50 WBC 17.1 H RBC 3.49 L Hgb 9.0 L Hct 28.1 L MCV MCH 26 L MCHC RDW 20.8 H Plt Count Lymph % (Auto) 11.5 L [place] % (Auto) 7.5 H Lymph # [place] # 1.3 H Baso # Seg Neutrophils % 79.8 H Seg Neuts % (Manual) Lymphocytes % (Manual) Monocytes % (Manual) Eosinophils % (Manual) Basophils % (Manual) Nucleated RBC % Seg Neutrophils # 13.7 H Seg Neutrophils # Man Lymphocytes # (Manual) Monocytes # (Manual) Eosinophils # (Manual) Basophils # (Manual) PT INR Fibrinogen dRVVT Confirm Interp Factor V Activity POC ABG pH POC ABG pCO2 POC ABG pO2 ABG pO2 ABG HCO3 ABG Base Excess ABG Hemoglobin Oxyhemoglobin Sodium Potassium Chloride 108.6 H Carbon Dioxide 15 L BUN 125 H Creatinine 4.1 H Glucose 124 H POC Glucose 119 H Lactic Acid Calcium Phosphorus Magnesium Direct Bilirubin AST ALT Alkaline Phosphatase Lactate Dehydrogenase Troponin T C-Reactive Protein Total Protein Albumin Prealbumin Triglycerides Cholesterol LDL Cholesterol Direct HDL Cholesterol PTH Intact Urine pH Urine WBC (Auto) Urine Creatinine Urine Total Protein Fluid Total Protein Vancomycin Trough Rheumatoid Factor Complement C4 Miscellaneous Test Crossmatch 09/19/16 09/19/16 09/19/16 11:25 17:53 23:36 WBC RBC Hgb Hct MCV MCH MCHC RDW Plt Count Lymph % (Auto) [place] % (Auto) Lymph # [place] # Baso # Seg Neutrophils % Seg Neuts % (Manual) Lymphocytes % (Manual) Monocytes % (Manual) Eosinophils % (Manual) Basophils % (Manual) Nucleated RBC % Seg Neutrophils # Seg Neutrophils # Man Lymphocytes # (Manual) Monocytes # (Manual) Eosinophils # (Manual) Basophils # (Manual) PT INR Fibrinogen dRVVT Confirm Interp Factor V Activity POC ABG pH POC ABG pCO2 POC ABG pO2 ABG pO2 ABG HCO3 ABG Base Excess ABG Hemoglobin Oxyhemoglobin Sodium Potassium Chloride Carbon Dioxide BUN Creatinine Glucose POC Glucose 160 H 245 H 121 H Lactic Acid Calcium Phosphorus Magnesium Direct Bilirubin AST ALT Alkaline Phosphatase Lactate Dehydrogenase Troponin T C-Reactive Protein Total Protein Albumin Prealbumin Triglycerides Cholesterol LDL Cholesterol Direct HDL Cholesterol PTH Intact Urine pH Urine WBC (Auto) Urine Creatinine Urine Total Protein Fluid Total Protein Vancomycin Trough Rheumatoid Factor Complement C4 Miscellaneous Test Crossmatch 09/20/16 09/20/16 09/20/16 04:10 04:10 04:10 WBC 17.0 H RBC 3.21 L Hgb 8.2 L Hct 25.5 L MCV MCH 26 L MCHC RDW 20.9 H Plt Count Lymph % (Auto) [place] % (Auto) Lymph # [place] # Baso # Seg Neutrophils % Seg Neuts % (Manual) Lymphocytes % (Manual) Monocytes % (Manual) Eosinophils % (Manual) Basophils % (Manual) Nucleated RBC % Seg Neutrophils # Seg Neutrophils # Man Lymphocytes # (Manual) Monocytes # (Manual) Eosinophils # (Manual) Basophils # (Manual) PT INR Fibrinogen dRVVT Confirm Interp Factor V Activity POC ABG pH POC ABG pCO2 POC ABG pO2 ABG pO2 ABG HCO3 ABG Base Excess ABG Hemoglobin Oxyhemoglobin Sodium Potassium Chloride 111.0 H Carbon Dioxide 16 L BUN 129 H Creatinine 3.7 H Glucose 115 H POC Glucose Lactic Acid Calcium 8.2 L Phosphorus Magnesium Direct Bilirubin AST ALT Alkaline Phosphatase Lactate Dehydrogenase Troponin T C-Reactive Protein Total Protein Albumin Prealbumin Triglycerides 243 H Cholesterol LDL Cholesterol Direct HDL Cholesterol PTH Intact Urine pH Urine WBC (Auto) Urine Creatinine Urine Total Protein Fluid Total Protein Vancomycin Trough Rheumatoid Factor Complement C4 Miscellaneous Test Crossmatch 09/20/16 09/20/16 09/20/16 05:40 11:52 16:50 WBC RBC Hgb Hct MCV MCH MCHC RDW Plt Count Lymph % (Auto) [place] % (Auto) Lymph # [place] # Baso # Seg Neutrophils % Seg Neuts % (Manual) Lymphocytes % (Manual) Monocytes % (Manual) Eosinophils % (Manual) Basophils % (Manual) Nucleated RBC % Seg Neutrophils # Seg Neutrophils # Man Lymphocytes # (Manual) Monocytes # (Manual) Eosinophils # (Manual) Basophils # (Manual) PT INR Fibrinogen dRVVT Confirm Interp Factor V Activity POC ABG pH POC ABG pCO2 POC ABG pO2 ABG pO2 ABG HCO3 ABG Base Excess ABG Hemoglobin Oxyhemoglobin Sodium Potassium Chloride Carbon Dioxide BUN Creatinine Glucose POC Glucose 131 H 183 H 236 H Lactic Acid Calcium Phosphorus Magnesium Direct Bilirubin AST ALT Alkaline Phosphatase Lactate Dehydrogenase Troponin T C-Reactive Protein Total Protein Albumin Prealbumin Triglycerides Cholesterol LDL Cholesterol Direct HDL Cholesterol PTH Intact Urine pH Urine WBC (Auto) Urine Creatinine Urine Total Protein Fluid Total Protein Vancomycin Trough Rheumatoid Factor Complement C4 Miscellaneous Test Crossmatch 09/20/16 09/21/16 09/21/16 23:51 03:30 04:44 WBC RBC Hgb Hct MCV MCH MCHC RDW Plt Count Lymph % (Auto) [place] % (Auto) Lymph # [place] # Baso # Seg Neutrophils % Seg Neuts % (Manual) Lymphocytes % (Manual) Monocytes % (Manual) Eosinophils % (Manual) Basophils % (Manual) Nucleated RBC % Seg Neutrophils # Seg Neutrophils # Man Lymphocytes # (Manual) Monocytes # (Manual) Eosinophils # (Manual) Basophils # (Manual) PT INR Fibrinogen dRVVT Confirm Interp Factor V Activity POC ABG pH POC ABG pCO2 POC ABG pO2 ABG pO2 ABG HCO3 ABG Base Excess ABG Hemoglobin Oxyhemoglobin Sodium Potassium Chloride Carbon Dioxide BUN Creatinine Glucose POC Glucose 114 H 141 H Lactic Acid Calcium Phosphorus Magnesium 2.70 H Direct Bilirubin AST ALT Alkaline Phosphatase Lactate Dehydrogenase Troponin T C-Reactive Protein Total Protein Albumin Prealbumin Triglycerides Cholesterol LDL Cholesterol Direct HDL Cholesterol PTH Intact Urine pH Urine WBC (Auto) Urine Creatinine Urine Total Protein Fluid Total Protein Vancomycin Trough Rheumatoid Factor Complement C4 Miscellaneous Test Crossmatch 09/21/16 09/21/16 09/21/16 07:45 07:45 10:01 WBC 13.8 H RBC 2.94 L Hgb 7.5 L Hct 23.5 L MCV MCH 26 L MCHC RDW 21.2 H Plt Count Lymph % (Auto) 6.9 L [place] % (Auto) 9.4 H Lymph # 0.9 L [place] # 1.3 H Baso # Seg Neutrophils % 83.2 H Seg Neuts % (Manual) Lymphocytes % (Manual) Monocytes % (Manual) Eosinophils % (Manual) Basophils % (Manual) Nucleated RBC % Seg Neutrophils # 11.5 H Seg Neutrophils # Man Lymphocytes # (Manual) Monocytes # (Manual) Eosinophils # (Manual) Basophils # (Manual) PT INR Fibrinogen dRVVT Confirm Interp Factor V Activity POC ABG pH 7.308 L POC ABG pCO2 31.9 L POC ABG pO2 148 H ABG pO2 ABG HCO3 ABG Base Excess ABG Hemoglobin Oxyhemoglobin Sodium 147 H Potassium Chloride 114.2 H Carbon Dioxide 15 L BUN 120 H Creatinine 3.9 H Glucose 156 H POC Glucose Lactic Acid Calcium 8.2 L Phosphorus Magnesium Direct Bilirubin AST ALT Alkaline Phosphatase Lactate Dehydrogenase Troponin T C-Reactive Protein Total Protein Albumin Prealbumin Triglycerides Cholesterol LDL Cholesterol Direct HDL Cholesterol PTH Intact Urine pH Urine WBC (Auto) Urine Creatinine Urine Total Protein Fluid Total Protein Vancomycin Trough Rheumatoid Factor Complement C4 Miscellaneous Test Crossmatch 09/21/16 09/21/16 09/21/16 12:00 12:03 13:00 WBC RBC Hgb Hct MCV MCH MCHC RDW Plt Count Lymph % (Auto) [place] % (Auto) Lymph # [place] # Baso # Seg Neutrophils % Seg Neuts % (Manual) Lymphocytes % (Manual) Monocytes % (Manual) Eosinophils % (Manual) Basophils % (Manual) Nucleated RBC % Seg Neutrophils # Seg Neutrophils # Man Lymphocytes # (Manual) Monocytes # (Manual) Eosinophils # (Manual) Basophils # (Manual) PT INR Fibrinogen dRVVT Confirm Interp Factor V Activity POC ABG pH POC ABG pCO2 POC ABG pO2 ABG pO2 ABG HCO3 ABG Base Excess ABG Hemoglobin Oxyhemoglobin Sodium Potassium Chloride Carbon Dioxide BUN Creatinine Glucose POC Glucose 163 H Lactic Acid Calcium Phosphorus Magnesium Direct Bilirubin AST ALT Alkaline Phosphatase Lactate Dehydrogenase Troponin T C-Reactive Protein Total Protein Albumin Prealbumin Triglycerides Cholesterol LDL Cholesterol Direct HDL Cholesterol PTH Intact Urine pH Urine WBC (Auto) Urine Creatinine 54.8 H Urine Total Protein Fluid Total Protein Vancomycin Trough 2.3 L Rheumatoid Factor Complement C4 Miscellaneous Test Crossmatch 09/21/16 09/21/16 09/22/16 16:51 23:17 06:27 WBC RBC Hgb Hct MCV MCH MCHC RDW Plt Count Lymph % (Auto) [place] % (Auto) Lymph # [place] # Baso # Seg Neutrophils % Seg Neuts % (Manual) Lymphocytes % (Manual) Monocytes % (Manual) Eosinophils % (Manual) Basophils % (Manual) Nucleated RBC % Seg Neutrophils # Seg Neutrophils # Man Lymphocytes # (Manual) Monocytes # (Manual) Eosinophils # (Manual) Basophils # (Manual) PT INR Fibrinogen dRVVT Confirm Interp Factor V Activity POC ABG pH POC ABG pCO2 POC ABG pO2 ABG pO2 ABG HCO3 ABG Base Excess ABG Hemoglobin Oxyhemoglobin Sodium Potassium Chloride Carbon Dioxide BUN Creatinine Glucose POC Glucose 206 H 114 H 115 H Lactic Acid Calcium Phosphorus Magnesium Direct Bilirubin AST ALT Alkaline Phosphatase Lactate Dehydrogenase Troponin T C-Reactive Protein Total Protein Albumin Prealbumin Triglycerides Cholesterol LDL Cholesterol Direct HDL Cholesterol PTH Intact Urine pH Urine WBC (Auto) Urine Creatinine Urine Total Protein Fluid Total Protein Vancomycin Trough Rheumatoid Factor Complement C4 Miscellaneous Test Crossmatch 09/22/16 09/22/16 09/22/16 07:50 07:50 12:00 WBC 17.8 H RBC 3.04 L Hgb 8.0 L Hct 24.7 L MCV MCH 26 L MCHC RDW 21.6 H Plt Count Lymph % (Auto) [place] % (Auto) Lymph # [place] # Baso # Seg Neutrophils % Seg Neuts % (Manual) Lymphocytes % (Manual) Monocytes % (Manual) Eosinophils % (Manual) Basophils % (Manual) Nucleated RBC % Seg Neutrophils # Seg Neutrophils # Man Lymphocytes # (Manual) Monocytes # (Manual) Eosinophils # (Manual) Basophils # (Manual) PT INR Fibrinogen dRVVT Confirm Interp Factor V Activity POC ABG pH POC ABG pCO2 POC ABG pO2 ABG pO2 ABG HCO3 ABG Base Excess ABG Hemoglobin Oxyhemoglobin Sodium 150 H Potassium Chloride 118.2 H Carbon Dioxide 14 L BUN 111 H Creatinine 3.7 H Glucose 157 H POC Glucose 183 H Lactic Acid Calcium Phosphorus Magnesium Direct Bilirubin AST ALT Alkaline Phosphatase Lactate Dehydrogenase Troponin T C-Reactive Protein Total Protein Albumin Prealbumin Triglycerides Cholesterol LDL Cholesterol Direct HDL Cholesterol PTH Intact Urine pH Urine WBC (Auto) Urine Creatinine Urine Total Protein Fluid Total Protein Vancomycin Trough Rheumatoid Factor Complement C4 Miscellaneous Test Crossmatch 09/22/16 09/22/16 09/23/16 17:29 23:10 05:00 WBC 19.2 H RBC 3.13 L Hgb 8.0 L Hct 25.2 L MCV MCH 26 L MCHC RDW 22.1 H Plt Count Lymph % (Auto) [place] % (Auto) Lymph # [place] # Baso # Seg Neutrophils % Seg Neuts % (Manual) 92.0 H Lymphocytes % (Manual) 3.0 L Monocytes % (Manual) Eosinophils % (Manual) Basophils % (Manual) Nucleated RBC % Seg Neutrophils # Seg Neutrophils # Man 17.7 H Lymphocytes # (Manual) 0.6 L Monocytes # (Manual) Eosinophils # (Manual) Basophils # (Manual) PT INR Fibrinogen dRVVT Confirm Interp Factor V Activity POC ABG pH POC ABG pCO2 POC ABG pO2 ABG pO2 ABG HCO3 ABG Base Excess ABG Hemoglobin Oxyhemoglobin Sodium Potassium Chloride Carbon Dioxide BUN Creatinine Glucose POC Glucose 197 H 169 H Lactic Acid Calcium Phosphorus Magnesium Direct Bilirubin AST ALT Alkaline Phosphatase Lactate Dehydrogenase Troponin T C-Reactive Protein Total Protein Albumin Prealbumin Triglycerides Cholesterol LDL Cholesterol Direct HDL Cholesterol PTH Intact Urine pH Urine WBC (Auto) Urine Creatinine Urine Total Protein Fluid Total Protein Vancomycin Trough Rheumatoid Factor Complement C4 Miscellaneous Test Crossmatch 09/23/16 09/23/16 09/23/16 05:00 05:00 05:10 WBC RBC Hgb Hct MCV MCH MCHC RDW Plt Count Lymph % (Auto) [place] % (Auto) Lymph # [place] # Baso # Seg Neutrophils % Seg Neuts % (Manual) Lymphocytes % (Manual) Monocytes % (Manual) Eosinophils % (Manual) Basophils % (Manual) Nucleated RBC % Seg Neutrophils # Seg Neutrophils # Man Lymphocytes # (Manual) Monocytes # (Manual) Eosinophils # (Manual) Basophils # (Manual) PT INR Fibrinogen dRVVT Confirm Interp Factor V Activity POC ABG pH POC ABG pCO2 POC ABG pO2 ABG pO2 ABG HCO3 ABG Base Excess ABG Hemoglobin Oxyhemoglobin Sodium 147 H Potassium 3.2 L Chloride 115.7 H Carbon Dioxide 13 L BUN 111 H Creatinine 3.8 H Glucose 194 H POC Glucose 188 H Lactic Acid Calcium 7.3 L D Phosphorus Magnesium Direct Bilirubin AST ALT Alkaline Phosphatase Lactate Dehydrogenase Troponin T C-Reactive Protein 3.20 H Total Protein Albumin Prealbumin Triglycerides Cholesterol LDL Cholesterol Direct HDL Cholesterol PTH Intact Urine pH Urine WBC (Auto) Urine Creatinine Urine Total Protein Fluid Total Protein Vancomycin Trough Rheumatoid Factor Complement C4 Miscellaneous Test Crossmatch 09/23/16 09/23/16 09/23/16 11:37 12:29 18:01 WBC RBC Hgb Hct MCV MCH MCHC RDW Plt Count Lymph % (Auto) [place] % (Auto) Lymph # [place] # Baso # Seg Neutrophils % Seg Neuts % (Manual) Lymphocytes % (Manual) Monocytes % (Manual) Eosinophils % (Manual) Basophils % (Manual) Nucleated RBC % Seg Neutrophils # Seg Neutrophils # Man Lymphocytes # (Manual) Monocytes # (Manual) Eosinophils # (Manual) Basophils # (Manual) PT INR Fibrinogen dRVVT Confirm Interp Factor V Activity POC ABG pH POC ABG pCO2 18.9 L POC ABG pO2 143 H ABG pO2 ABG HCO3 ABG Base Excess ABG Hemoglobin Oxyhemoglobin Sodium Potassium Chloride Carbon Dioxide BUN Creatinine Glucose POC Glucose 153 H 108 H Lactic Acid Calcium Phosphorus Magnesium Direct Bilirubin AST ALT Alkaline Phosphatase Lactate Dehydrogenase Troponin T C-Reactive Protein Total Protein Albumin Prealbumin Triglycerides Cholesterol LDL Cholesterol Direct HDL Cholesterol PTH Intact Urine pH Urine WBC (Auto) Urine Creatinine Urine Total Protein Fluid Total Protein Vancomycin Trough Rheumatoid Factor Complement C4 Miscellaneous Test Crossmatch 09/23/16 09/23/16 09/24/16 21:19 23:43 05:16 WBC RBC Hgb Hct MCV MCH MCHC RDW Plt Count Lymph % (Auto) [place] % (Auto) Lymph # [place] # Baso # Seg Neutrophils % Seg Neuts % (Manual) Lymphocytes % (Manual) Monocytes % (Manual) Eosinophils % (Manual) Basophils % (Manual) Nucleated RBC % Seg Neutrophils # Seg Neutrophils # Man Lymphocytes # (Manual) Monocytes # (Manual) Eosinophils # (Manual) Basophils # (Manual) PT INR Fibrinogen dRVVT Confirm Interp Factor V Activity POC ABG pH POC ABG pCO2 17.3 L POC ABG pO2 112 H ABG pO2 ABG HCO3 ABG Base Excess ABG Hemoglobin Oxyhemoglobin Sodium Potassium Chloride Carbon Dioxide BUN Creatinine Glucose POC Glucose 143 H 164 H Lactic Acid Calcium Phosphorus Magnesium Direct Bilirubin AST ALT Alkaline Phosphatase Lactate Dehydrogenase Troponin T C-Reactive Protein Total Protein Albumin Prealbumin Triglycerides Cholesterol LDL Cholesterol Direct HDL Cholesterol PTH Intact Urine pH Urine WBC (Auto) Urine Creatinine Urine Total Protein Fluid Total Protein Vancomycin Trough Rheumatoid Factor Complement C4 Miscellaneous Test Crossmatch 09/24/16 09/24/16 09/24/16 05:21 11:58 17:06 WBC RBC Hgb Hct MCV MCH MCHC RDW Plt Count Lymph % (Auto) [place] % (Auto) Lymph # [place] # Baso # Seg Neutrophils % Seg Neuts % (Manual) Lymphocytes % (Manual) Monocytes % (Manual) Eosinophils % (Manual) Basophils % (Manual) Nucleated RBC % Seg Neutrophils # Seg Neutrophils # Man Lymphocytes # (Manual) Monocytes # (Manual) Eosinophils # (Manual) Basophils # (Manual) PT INR Fibrinogen dRVVT Confirm Interp Factor V Activity POC ABG pH POC ABG pCO2 POC ABG pO2 ABG pO2 ABG HCO3 ABG Base Excess ABG Hemoglobin Oxyhemoglobin Sodium Potassium Chloride Carbon Dioxide 10 L BUN 103 H Creatinine 4.3 H Glucose 163 H POC Glucose 173 H 167 H Lactic Acid Calcium 6.5 L Phosphorus Magnesium Direct Bilirubin AST ALT Alkaline Phosphatase Lactate Dehydrogenase Troponin T C-Reactive Protein Total Protein Albumin Prealbumin Triglycerides Cholesterol LDL Cholesterol Direct HDL Cholesterol PTH Intact Urine pH Urine WBC (Auto) Urine Creatinine Urine Total Protein Fluid Total Protein Vancomycin Trough Rheumatoid Factor Complement C4 Miscellaneous Test Crossmatch 09/24/16 09/24/16 09/24/16 20:15 21:02 23:48 WBC RBC Hgb Hct MCV MCH MCHC RDW Plt Count Lymph % (Auto) [place] % (Auto) Lymph # [place] # Baso # Seg Neutrophils % Seg Neuts % (Manual) Lymphocytes % (Manual) Monocytes % (Manual) Eosinophils % (Manual) Basophils % (Manual) Nucleated RBC % Seg Neutrophils # Seg Neutrophils # Man Lymphocytes # (Manual) Monocytes # (Manual) Eosinophils # (Manual) Basophils # (Manual) PT INR Fibrinogen dRVVT Confirm Interp Factor V Activity POC ABG pH 7.288 L POC ABG pCO2 30.2 L 21.5 L POC ABG pO2 32 L 39 L ABG pO2 ABG HCO3 ABG Base Excess ABG Hemoglobin Oxyhemoglobin Sodium Potassium Chloride Carbon Dioxide BUN Creatinine Glucose POC Glucose 109 H Lactic Acid Calcium Phosphorus Magnesium Direct Bilirubin AST ALT Alkaline Phosphatase Lactate Dehydrogenase Troponin T C-Reactive Protein Total Protein Albumin Prealbumin Triglycerides Cholesterol LDL Cholesterol Direct HDL Cholesterol PTH Intact Urine pH Urine WBC (Auto) Urine Creatinine Urine Total Protein Fluid Total Protein Vancomycin Trough Rheumatoid Factor Complement C4 Miscellaneous Test Crossmatch 09/25/16 09/25/16 09/25/16 04:20 04:20 04:20 WBC RBC 2.58 L Hgb 7.0 L Hct 21.0 L MCV MCH 27 L MCHC RDW 23.8 H Plt Count Lymph % (Auto) [place] % (Auto) Lymph # [place] # Baso # Seg Neutrophils % Seg Neuts % (Manual) Lymphocytes % (Manual) 12.0 L Monocytes % (Manual) Eosinophils % (Manual) 7.0 H Basophils % (Manual) 2.0 H Nucleated RBC % Seg Neutrophils # Seg Neutrophils # Man Lymphocytes # (Manual) 0.9 L Monocytes # (Manual) Eosinophils # (Manual) 0.5 H Basophils # (Manual) PT INR Fibrinogen dRVVT Confirm Interp Factor V Activity POC ABG pH POC ABG pCO2 POC ABG pO2 ABG pO2 ABG HCO3 ABG Base Excess ABG Hemoglobin Oxyhemoglobin Sodium Potassium Chloride Carbon Dioxide 15 L BUN 72 H Creatinine 3.8 H Glucose POC Glucose Lactic Acid Calcium 6.0 L Phosphorus 4.60 H Magnesium 1.60 L Direct Bilirubin AST ALT Alkaline Phosphatase Lactate Dehydrogenase Troponin T C-Reactive Protein Total Protein Albumin Prealbumin Triglycerides Cholesterol LDL Cholesterol Direct HDL Cholesterol PTH Intact Urine pH Urine WBC (Auto) Urine Creatinine Urine Total Protein Fluid Total Protein Vancomycin Trough Rheumatoid Factor Complement C4 Miscellaneous Test Crossmatch 08/08/0609/25/16 09/25/16 04:57 08:02 10:30 WBC RBC Hgb Hct MCV MCH MCHC RDW Plt Count Lymph % (Auto) [place] % (Auto) Lymph # [place] # Baso # Seg Neutrophils % Seg Neuts % (Manual) Lymphocytes % (Manual) Monocytes % (Manual) Eosinophils % (Manual) Basophils % (Manual) Nucleated RBC % Seg Neutrophils # Seg Neutrophils # Man Lymphocytes # (Manual) Monocytes # (Manual) Eosinophils # (Manual) Basophils # (Manual) PT INR Fibrinogen dRVVT Confirm Interp Factor V Activity POC ABG pH POC ABG pCO2 24.7 L POC ABG pO2 152 H ABG pO2 ABG HCO3 ABG Base Excess ABG Hemoglobin Oxyhemoglobin Sodium Potassium Chloride Carbon Dioxide BUN Creatinine Glucose POC Glucose 113 H Lactic Acid Calcium Phosphorus Magnesium Direct Bilirubin AST ALT Alkaline Phosphatase Lactate Dehydrogenase Troponin T C-Reactive Protein Total Protein Albumin Prealbumin Triglycerides Cholesterol LDL Cholesterol Direct HDL Cholesterol PTH Intact Urine pH Urine WBC (Auto) Urine Creatinine Urine Total Protein Fluid Total Protein Vancomycin Trough Rheumatoid Factor Complement C4 Miscellaneous Test Crossmatch See Detail 09/25/16 09/25/16 09/25/16 12:05 17:44 23:47 WBC RBC Hgb Hct MCV MCH MCHC RDW Plt Count Lymph % (Auto) [place] % (Auto) Lymph # [place] # Baso # Seg Neutrophils % Seg Neuts % (Manual) Lymphocytes % (Manual) Monocytes % (Manual) Eosinophils % (Manual) Basophils % (Manual) Nucleated RBC % Seg Neutrophils # Seg Neutrophils # Man Lymphocytes # (Manual) Monocytes # (Manual) Eosinophils # (Manual) Basophils # (Manual) PT INR Fibrinogen dRVVT Confirm Interp Factor V Activity POC ABG pH POC ABG pCO2 POC ABG pO2 ABG pO2 ABG HCO3 ABG Base Excess ABG Hemoglobin Oxyhemoglobin Sodium Potassium Chloride Carbon Dioxide BUN Creatinine Glucose POC Glucose 117 H 119 H 150 H Lactic Acid Calcium Phosphorus Magnesium Direct Bilirubin AST ALT Alkaline Phosphatase Lactate Dehydrogenase Troponin T C-Reactive Protein Total Protein Albumin Prealbumin Triglycerides Cholesterol LDL Cholesterol Direct HDL Cholesterol PTH Intact Urine pH Urine WBC (Auto) Urine Creatinine Urine Total Protein Fluid Total Protein Vancomycin Trough Rheumatoid Factor Complement C4 Miscellaneous Test Crossmatch 09/26/16 09/26/16 09/26/16 04:25 04:25 04:25 WBC RBC 2.65 L Hgb 7.4 L Hct 21.6 L MCV MCH MCHC RDW 22.5 H Plt Count Lymph % (Auto) [place] % (Auto) Lymph # [place] # Baso # Seg Neutrophils % Seg Neuts % (Manual) Lymphocytes % (Manual) 6.0 L Monocytes % (Manual) Eosinophils % (Manual) 11.0 H Basophils % (Manual) Nucleated RBC % Seg Neutrophils # Seg Neutrophils # Man Lymphocytes # (Manual) 0.4 L Monocytes # (Manual) Eosinophils # (Manual) 0.6 H Basophils # (Manual) PT INR Fibrinogen dRVVT Confirm Interp Factor V Activity POC ABG pH POC ABG pCO2 POC ABG pO2 ABG pO2 ABG HCO3 ABG Base Excess ABG Hemoglobin Oxyhemoglobin Sodium Potassium Chloride 97.0 L Carbon Dioxide 19 L BUN 43 H Creatinine 2.6 H Glucose 130 H POC Glucose Lactic Acid 4.40 H* Calcium 6.7 L Phosphorus Magnesium Direct Bilirubin AST ALT Alkaline Phosphatase Lactate Dehydrogenase Troponin T C-Reactive Protein Total Protein Albumin Prealbumin Triglycerides Cholesterol LDL Cholesterol Direct HDL Cholesterol PTH Intact Urine pH Urine WBC (Auto) Urine Creatinine Urine Total Protein Fluid Total Protein Vancomycin Trough Rheumatoid Factor Complement C4 Miscellaneous Test Crossmatch 09/26/16 09/26/16 09/26/16 05:20 11:44 12:12 WBC RBC Hgb Hct MCV MCH MCHC RDW Plt Count Lymph % (Auto) [place] % (Auto) Lymph # [place] # Baso # Seg Neutrophils % Seg Neuts % (Manual) Lymphocytes % (Manual) Monocytes % (Manual) Eosinophils % (Manual) Basophils % (Manual) Nucleated RBC % Seg Neutrophils # Seg Neutrophils # Man Lymphocytes # (Manual) Monocytes # (Manual) Eosinophils # (Manual) Basophils # (Manual) PT INR Fibrinogen dRVVT Confirm Interp Factor V Activity POC ABG pH POC ABG pCO2 27.0 L POC ABG pO2 69 L ABG pO2 ABG HCO3 ABG Base Excess ABG Hemoglobin Oxyhemoglobin Sodium Potassium Chloride Carbon Dioxide BUN Creatinine Glucose POC Glucose 121 H 128 H Lactic Acid Calcium Phosphorus Magnesium Direct Bilirubin AST ALT Alkaline Phosphatase Lactate Dehydrogenase Troponin T C-Reactive Protein Total Protein Albumin Prealbumin Triglycerides Cholesterol LDL Cholesterol Direct HDL Cholesterol PTH Intact Urine pH Urine WBC (Auto) Urine Creatinine Urine Total Protein Fluid Total Protein Vancomycin Trough Rheumatoid Factor Complement C4 Miscellaneous Test Crossmatch 09/26/16 09/26/16 09/27/16 18:31 23:40 08:20 WBC RBC Hgb Hct MCV MCH MCHC RDW Plt Count Lymph % (Auto) [place] % (Auto) Lymph # [place] # Baso # Seg Neutrophils % Seg Neuts % (Manual) Lymphocytes % (Manual) Monocytes % (Manual) Eosinophils % (Manual) Basophils % (Manual) Nucleated RBC % Seg Neutrophils # Seg Neutrophils # Man Lymphocytes # (Manual) Monocytes # (Manual) Eosinophils # (Manual) Basophils # (Manual) PT INR Fibrinogen dRVVT Confirm Interp Factor V Activity POC ABG pH POC ABG pCO2 POC ABG pO2 ABG pO2 ABG HCO3 ABG Base Excess ABG Hemoglobin Oxyhemoglobin Sodium Potassium Chloride Carbon Dioxide BUN Creatinine Glucose POC Glucose 120 H 133 H Lactic Acid 4.10 H* Calcium Phosphorus Magnesium Direct Bilirubin AST ALT Alkaline Phosphatase Lactate Dehydrogenase Troponin T C-Reactive Protein Total Protein Albumin Prealbumin Triglycerides Cholesterol LDL Cholesterol Direct HDL Cholesterol PTH Intact Urine pH Urine WBC (Auto) Urine Creatinine Urine Total Protein Fluid Total Protein Vancomycin Trough Rheumatoid Factor Complement C4 Miscellaneous Test Crossmatch 09/27/16 09/27/16 09/27/16 11:23 15:00 18:15 WBC RBC Hgb Hct MCV MCH MCHC RDW Plt Count Lymph % (Auto) [place] % (Auto) Lymph # [place] # Baso # Seg Neutrophils % Seg Neuts % (Manual) Lymphocytes % (Manual) Monocytes % (Manual) Eosinophils % (Manual) Basophils % (Manual) Nucleated RBC % Seg Neutrophils # Seg Neutrophils # Man Lymphocytes # (Manual) Monocytes # (Manual) Eosinophils # (Manual) Basophils # (Manual) PT INR Fibrinogen dRVVT Confirm Interp Factor V Activity POC ABG pH 7.459 H POC ABG pCO2 27.1 L POC ABG pO2 140 H ABG pO2 ABG HCO3 ABG Base Excess ABG Hemoglobin Oxyhemoglobin Sodium Potassium Chloride Carbon Dioxide BUN Creatinine Glucose POC Glucose 114 H 127 H Lactic Acid Calcium Phosphorus Magnesium Direct Bilirubin AST ALT Alkaline Phosphatase Lactate Dehydrogenase Troponin T C-Reactive Protein Total Protein Albumin Prealbumin Triglycerides Cholesterol LDL Cholesterol Direct HDL Cholesterol PTH Intact Urine pH Urine WBC (Auto) Urine Creatinine Urine Total Protein Fluid Total Protein Vancomycin Trough Rheumatoid Factor Complement C4 Miscellaneous Test Crossmatch 09/27/16 09/27/16 09/28/16 Unknown Unknown 03:45 WBC RBC 2.49 L Hgb 6.8 L Hct 20.7 L MCV MCH 27 L MCHC RDW 22.1 H Plt Count Lymph % (Auto) [place] % (Auto) Lymph # [place] # Baso # Seg Neutrophils % Seg Neuts % (Manual) 32.0 L Lymphocytes % (Manual) 12.0 L Monocytes % (Manual) 11.0 H Eosinophils % (Manual) 10.0 H Basophils % (Manual) Nucleated RBC % Seg Neutrophils # Seg Neutrophils # Man Lymphocytes # (Manual) 1.0 L Monocytes # (Manual) 0.9 H Eosinophils # (Manual) 0.8 H Basophils # (Manual) PT INR Fibrinogen dRVVT Confirm Interp Factor V Activity POC ABG pH POC ABG pCO2 POC ABG pO2 ABG pO2 ABG HCO3 ABG Base Excess ABG Hemoglobin Oxyhemoglobin Sodium 135 L 135 L Potassium 3.5 L Chloride 93.6 L 94.4 L Carbon Dioxide 17 L 21 L BUN 45 H 28 H Creatinine 3.3 H 2.5 H Glucose 106 H POC Glucose Lactic Acid Calcium 7.3 L 7.1 L Phosphorus Magnesium Direct Bilirubin AST ALT Alkaline Phosphatase Lactate Dehydrogenase Troponin T C-Reactive Protein Total Protein Albumin Prealbumin Triglycerides Cholesterol LDL Cholesterol Direct HDL Cholesterol PTH Intact Urine pH Urine WBC (Auto) Urine Creatinine Urine Total Protein Fluid Total Protein Vancomycin Trough Rheumatoid Factor Complement C4 Miscellaneous Test Crossmatch 09/28/16 09/28/16 09/28/16 03:45 07:25 11:58 WBC 13.3 H RBC 3.01 L Hgb 8.4 L Hct 25.0 L MCV MCH MCHC RDW 20.5 H Plt Count 128 L Lymph % (Auto) [place] % (Auto) Lymph # [place] # Baso # Seg Neutrophils % Seg Neuts % (Manual) Lymphocytes % (Manual) 7.0 L Monocytes % (Manual) Eosinophils % (Manual) 6.0 H Basophils % (Manual) Nucleated RBC % Seg Neutrophils # Seg Neutrophils # Man Lymphocytes # (Manual) 0.9 L Monocytes # (Manual) Eosinophils # (Manual) 0.8 H Basophils # (Manual) PT INR Fibrinogen dRVVT Confirm Interp Factor V Activity POC ABG pH POC ABG pCO2 POC ABG pO2 ABG pO2 ABG HCO3 ABG Base Excess ABG Hemoglobin Oxyhemoglobin Sodium Potassium Chloride Carbon Dioxide BUN Creatinine Glucose POC Glucose 121 H Lactic Acid 4.50 H* Calcium Phosphorus Magnesium Direct Bilirubin AST ALT Alkaline Phosphatase Lactate Dehydrogenase Troponin T C-Reactive Protein Total Protein Albumin Prealbumin Triglycerides Cholesterol LDL Cholesterol Direct HDL Cholesterol PTH Intact Urine pH Urine WBC (Auto) Urine Creatinine Urine Total Protein Fluid Total Protein Vancomycin Trough Rheumatoid Factor Complement C4 Miscellaneous Test Crossmatch 09/29/16 09/29/16 09/29/16 06:45 06:45 06:45 WBC 14.9 H RBC 2.74 L Hgb 7.6 L Hct 23.2 L MCV MCH MCHC RDW 20.5 H Plt Count 81 L Lymph % (Auto) [place] % (Auto) Lymph # [place] # Baso # Seg Neutrophils % Seg Neuts % (Manual) 81.0 H Lymphocytes % (Manual) 4.0 L Monocytes % (Manual) Eosinophils % (Manual) Basophils % (Manual) Nucleated RBC % Seg Neutrophils # Seg Neutrophils # Man 12.1 H Lymphocytes # (Manual) 0.6 L Monocytes # (Manual) Eosinophils # (Manual) Basophils # (Manual) PT INR Fibrinogen dRVVT Confirm Interp Factor V Activity POC ABG pH POC ABG pCO2 POC ABG pO2 ABG pO2 ABG HCO3 ABG Base Excess ABG Hemoglobin Oxyhemoglobin Sodium 133 L Potassium 3.4 L Chloride 92.5 L Carbon Dioxide 21 L BUN 33 H Creatinine 3.0 H Glucose POC Glucose Lactic Acid Calcium 6.6 L Phosphorus Magnesium 1.40 L Direct Bilirubin 0.9 H AST ALT Alkaline Phosphatase Lactate Dehydrogenase Troponin T C-Reactive Protein Total Protein 4.3 L Albumin 1.3 L Prealbumin Triglycerides Cholesterol LDL Cholesterol Direct HDL Cholesterol PTH Intact Urine pH Urine WBC (Auto) Urine Creatinine Urine Total Protein Fluid Total Protein Vancomycin Trough Rheumatoid Factor Complement C4 Miscellaneous Test Crossmatch 09/29/16 09/29/16 09/30/16 17:52 20:12 00:07 WBC RBC Hgb Hct MCV MCH MCHC RDW Plt Count Lymph % (Auto) [place] % (Auto) Lymph # [place] # Baso # Seg Neutrophils % Seg Neuts % (Manual) Lymphocytes % (Manual) Monocytes % (Manual) Eosinophils % (Manual) Basophils % (Manual) Nucleated RBC % Seg Neutrophils # Seg Neutrophils # Man Lymphocytes # (Manual) Monocytes # (Manual) Eosinophils # (Manual) Basophils # (Manual) PT INR Fibrinogen dRVVT Confirm Interp Factor V Activity POC ABG pH POC ABG pCO2 POC ABG pO2 ABG pO2 ABG HCO3 ABG Base Excess ABG Hemoglobin Oxyhemoglobin Sodium Potassium Chloride Carbon Dioxide BUN Creatinine Glucose POC Glucose 50 L 51 L Lactic Acid Calcium Phosphorus Magnesium Direct Bilirubin AST ALT Alkaline Phosphatase Lactate Dehydrogenase Troponin T 0.204 H* C-Reactive Protein Total Protein Albumin Prealbumin Triglycerides Cholesterol 31 L LDL Cholesterol Direct 4 L HDL Cholesterol 3 L PTH Intact Urine pH Urine WBC (Auto) Urine Creatinine Urine Total Protein Fluid Total Protein Vancomycin Trough Rheumatoid Factor Complement C4 Miscellaneous Test Crossmatch 09/30/16 09/30/16 09/30/16 01:30 05:15 06:10 WBC RBC Hgb Hct MCV MCH MCHC RDW Plt Count Lymph % (Auto) [place] % (Auto) Lymph # [place] # Baso # Seg Neutrophils % Seg Neuts % (Manual) Lymphocytes % (Manual) Monocytes % (Manual) Eosinophils % (Manual) Basophils % (Manual) Nucleated RBC % Seg Neutrophils # Seg Neutrophils # Man Lymphocytes # (Manual) Monocytes # (Manual) Eosinophils # (Manual) Basophils # (Manual) PT INR Fibrinogen dRVVT Confirm Interp Factor V Activity POC ABG pH POC ABG pCO2 POC ABG pO2 ABG pO2 ABG HCO3 ABG Base Excess ABG Hemoglobin Oxyhemoglobin Sodium 133 L Potassium 3.2 L Chloride 93.2 L Carbon Dioxide 19 L BUN 36 H Creatinine 3.2 H Glucose 104 H POC Glucose 167 H 146 H Lactic Acid Calcium 6.4 L Phosphorus Magnesium 1.60 L Direct Bilirubin AST ALT Alkaline Phosphatase Lactate Dehydrogenase Troponin T C-Reactive Protein Total Protein Albumin Prealbumin Triglycerides Cholesterol LDL Cholesterol Direct HDL Cholesterol PTH Intact Urine pH Urine WBC (Auto) Urine Creatinine Urine Total Protein Fluid Total Protein Vancomycin Trough Rheumatoid Factor Complement C4 Miscellaneous Test Crossmatch 09/30/16 09/30/16 09/30/16 11:26 13:39 18:38 WBC RBC Hgb Hct MCV MCH MCHC RDW Plt Count Lymph % (Auto) [place] % (Auto) Lymph # [place] # Baso # Seg Neutrophils % Seg Neuts % (Manual) Lymphocytes % (Manual) Monocytes % (Manual) Eosinophils % (Manual) Basophils % (Manual) Nucleated RBC % Seg Neutrophils # Seg Neutrophils # Man Lymphocytes # (Manual) Monocytes # (Manual) Eosinophils # (Manual) Basophils # (Manual) PT INR Fibrinogen dRVVT Confirm Interp Factor V Activity POC ABG pH 7.479 H POC ABG pCO2 29.8 L POC ABG pO2 117 H ABG pO2 ABG HCO3 ABG Base Excess ABG Hemoglobin Oxyhemoglobin Sodium Potassium Chloride Carbon Dioxide BUN Creatinine Glucose POC Glucose 140 H 122 H Lactic Acid Calcium Phosphorus Magnesium Direct Bilirubin AST ALT Alkaline Phosphatase Lactate Dehydrogenase Troponin T C-Reactive Protein Total Protein Albumin Prealbumin Triglycerides Cholesterol LDL Cholesterol Direct HDL Cholesterol PTH Intact Urine pH Urine WBC (Auto) Urine Creatinine Urine Total Protein Fluid Total Protein Vancomycin Trough Rheumatoid Factor Complement C4 Miscellaneous Test Crossmatch 10/01/16 10/01/16 10/01/16 06:00 06:00 12:37 WBC 12.6 H RBC 2.75 L Hgb 7.3 L Hct 23.3 L MCV MCH 27 L MCHC RDW 20.6 H Plt Count 72 L Lymph % (Auto) [place] % (Auto) Lymph # [place] # Baso # Seg Neutrophils % Seg Neuts % (Manual) 31.0 L Lymphocytes % (Manual) 8.0 L Monocytes % (Manual) Eosinophils % (Manual) Basophils % (Manual) Nucleated RBC % 3.0 H Seg Neutrophils # Seg Neutrophils # Man Lymphocytes # (Manual) 1.0 L Monocytes # (Manual) Eosinophils # (Manual) Basophils # (Manual) PT INR Fibrinogen dRVVT Confirm Interp Factor V Activity POC ABG pH POC ABG pCO2 POC ABG pO2 ABG pO2 ABG HCO3 ABG Base Excess ABG Hemoglobin Oxyhemoglobin Sodium 127 L Potassium Chloride 86.8 L Carbon Dioxide 20 L BUN 42 H Creatinine 3.5 H Glucose POC Glucose 65 L Lactic Acid Calcium 7.0 L Phosphorus Magnesium Direct Bilirubin AST ALT Alkaline Phosphatase Lactate Dehydrogenase Troponin T C-Reactive Protein Total Protein Albumin Prealbumin Triglycerides Cholesterol LDL Cholesterol Direct HDL Cholesterol PTH Intact Urine pH Urine WBC (Auto) Urine Creatinine Urine Total Protein Fluid Total Protein Vancomycin Trough Rheumatoid Factor Complement C4 Miscellaneous Test Crossmatch 10/01/16 10/01/16 10/02/16 17:39 23:32 00:59 WBC RBC Hgb Hct MCV MCH MCHC RDW Plt Count Lymph % (Auto) [place] % (Auto) Lymph # [place] # Baso # Seg Neutrophils % Seg Neuts % (Manual) Lymphocytes % (Manual) Monocytes % (Manual) Eosinophils % (Manual) Basophils % (Manual) Nucleated RBC % Seg Neutrophils # Seg Neutrophils # Man Lymphocytes # (Manual) Monocytes # (Manual) Eosinophils # (Manual) Basophils # (Manual) PT INR Fibrinogen dRVVT Confirm Interp Factor V Activity POC ABG pH POC ABG pCO2 POC ABG pO2 ABG pO2 ABG HCO3 ABG Base Excess ABG Hemoglobin Oxyhemoglobin Sodium Potassium Chloride Carbon Dioxide BUN Creatinine Glucose POC Glucose 107 H 52 L 145 H Lactic Acid Calcium Phosphorus Magnesium Direct Bilirubin AST ALT Alkaline Phosphatase Lactate Dehydrogenase Troponin T C-Reactive Protein Total Protein Albumin Prealbumin Triglycerides Cholesterol LDL Cholesterol Direct HDL Cholesterol PTH Intact Urine pH Urine WBC (Auto) Urine Creatinine Urine Total Protein Fluid Total Protein Vancomycin Trough Rheumatoid Factor Complement C4 Miscellaneous Test Crossmatch 10/02/16 10/02/16 10/02/16 10:30 10:50 10:50 WBC 14.7 H RBC 2.76 L Hgb 7.4 L Hct 23.6 L MCV MCH 27 L MCHC RDW 20.2 H Plt Count 79 L Lymph % (Auto) [place] % (Auto) Lymph # [place] # Baso # Seg Neutrophils % Seg Neuts % (Manual) 86.0 H Lymphocytes % (Manual) 6.0 L Monocytes % (Manual) Eosinophils % (Manual) Basophils % (Manual) Nucleated RBC % Seg Neutrophils # Seg Neutrophils # Man 12.6 H Lymphocytes # (Manual) 0.9 L Monocytes # (Manual) Eosinophils # (Manual) Basophils # (Manual) PT INR Fibrinogen dRVVT Confirm Interp Factor V Activity POC ABG pH 7.486 H POC ABG pCO2 30.1 L POC ABG pO2 108 H ABG pO2 ABG HCO3 ABG Base Excess ABG Hemoglobin Oxyhemoglobin Sodium 131 L Potassium 3.4 L Chloride 89.9 L Carbon Dioxide BUN 26 H Creatinine 2.6 H Glucose POC Glucose Lactic Acid Calcium 7.0 L Phosphorus Magnesium Direct Bilirubin AST ALT Alkaline Phosphatase Lactate Dehydrogenase Troponin T C-Reactive Protein Total Protein Albumin Prealbumin Triglycerides Cholesterol LDL Cholesterol Direct HDL Cholesterol PTH Intact Urine pH Urine WBC (Auto) Urine Creatinine Urine Total Protein Fluid Total Protein Vancomycin Trough Rheumatoid Factor Complement C4 Miscellaneous Test Crossmatch 10/02/16 10/03/16 10/03/16 23:45 00:45 05:10 WBC 12.9 H RBC 2.77 L Hgb 7.6 L Hct 23.7 L MCV MCH 27 L MCHC RDW 19.7 H Plt Count 89 L Lymph % (Auto) [place] % (Auto) Lymph # [place] # Baso # Seg Neutrophils % Seg Neuts % (Manual) Lymphocytes % (Manual) 8.0 L Monocytes % (Manual) Eosinophils % (Manual) Basophils % (Manual) Nucleated RBC % Seg Neutrophils # 11.9 H Seg Neutrophils # Man Lymphocytes # (Manual) 1.0 L Monocytes # (Manual) Eosinophils # (Manual) Basophils # (Manual) PT INR Fibrinogen dRVVT Confirm Interp Factor V Activity POC ABG pH POC ABG pCO2 POC ABG pO2 ABG pO2 ABG HCO3 ABG Base Excess ABG Hemoglobin Oxyhemoglobin Sodium Potassium Chloride Carbon Dioxide BUN Creatinine Glucose POC Glucose 55 L 199 H Lactic Acid Calcium Phosphorus Magnesium Direct Bilirubin AST ALT Alkaline Phosphatase Lactate Dehydrogenase Troponin T C-Reactive Protein Total Protein Albumin Prealbumin Triglycerides Cholesterol LDL Cholesterol Direct HDL Cholesterol PTH Intact Urine pH Urine WBC (Auto) Urine Creatinine Urine Total Protein Fluid Total Protein Vancomycin Trough Rheumatoid Factor Complement C4 Miscellaneous Test Crossmatch 10/03/16 10/03/16 10/03/16 05:10 12:14 13:18 WBC RBC Hgb Hct MCV MCH MCHC RDW Plt Count Lymph % (Auto) [place] % (Auto) Lymph # [place] # Baso # Seg Neutrophils % Seg Neuts % (Manual) Lymphocytes % (Manual) Monocytes % (Manual) Eosinophils % (Manual) Basophils % (Manual) Nucleated RBC % Seg Neutrophils # Seg Neutrophils # Man Lymphocytes # (Manual) Monocytes # (Manual) Eosinophils # (Manual) Basophils # (Manual) PT INR Fibrinogen dRVVT Confirm Interp Factor V Activity POC ABG pH POC ABG pCO2 POC ABG pO2 ABG pO2 ABG HCO3 ABG Base Excess ABG Hemoglobin Oxyhemoglobin Sodium 129 L Potassium 3.3 L Chloride 88.8 L Carbon Dioxide 20 L BUN 29 H Creatinine 2.8 H Glucose POC Glucose 68 L 127 H Lactic Acid Calcium 7.2 L Phosphorus Magnesium Direct Bilirubin AST ALT Alkaline Phosphatase Lactate Dehydrogenase Troponin T C-Reactive Protein Total Protein Albumin Prealbumin Triglycerides Cholesterol LDL Cholesterol Direct HDL Cholesterol PTH Intact Urine pH Urine WBC (Auto) Urine Creatinine Urine Total Protein Fluid Total Protein Vancomycin Trough Rheumatoid Factor Complement C4 Miscellaneous Test Crossmatch 10/03/16 10/03/16 10/03/16 14:42 18:21 19:09 WBC RBC Hgb Hct MCV MCH MCHC RDW Plt Count Lymph % (Auto) [place] % (Auto) Lymph # [place] # Baso # Seg Neutrophils % Seg Neuts % (Manual) Lymphocytes % (Manual) Monocytes % (Manual) Eosinophils % (Manual) Basophils % (Manual) Nucleated RBC % Seg Neutrophils # Seg Neutrophils # Man Lymphocytes # (Manual) Monocytes # (Manual) Eosinophils # (Manual) Basophils # (Manual) PT INR Fibrinogen dRVVT Confirm Interp Factor V Activity POC ABG pH 7.499 H POC ABG pCO2 28.4 L POC ABG pO2 44 L ABG pO2 ABG HCO3 ABG Base Excess ABG Hemoglobin Oxyhemoglobin Sodium Potassium Chloride Carbon Dioxide BUN Creatinine Glucose POC Glucose 64 L 205 H Lactic Acid Calcium Phosphorus Magnesium Direct Bilirubin AST ALT Alkaline Phosphatase Lactate Dehydrogenase Troponin T C-Reactive Protein Total Protein Albumin Prealbumin Triglycerides Cholesterol LDL Cholesterol Direct HDL Cholesterol PTH Intact Urine pH Urine WBC (Auto) Urine Creatinine Urine Total Protein Fluid Total Protein Vancomycin Trough Rheumatoid Factor Complement C4 Miscellaneous Test Crossmatch 10/03/16 10/04/16 10/04/16 23:33 04:18 06:30 WBC RBC 2.54 L Hgb 7.1 L Hct 21.7 L MCV MCH MCHC RDW 19.5 H Plt Count 76 L Lymph % (Auto) [place] % (Auto) Lymph # [place] # Baso # Seg Neutrophils % Seg Neuts % (Manual) 88.0 H Lymphocytes % (Manual) 6.0 L Monocytes % (Manual) Eosinophils % (Manual) Basophils % (Manual) Nucleated RBC % Seg Neutrophils # Seg Neutrophils # Man 8.8 H Lymphocytes # (Manual) 0.6 L Monocytes # (Manual) Eosinophils # (Manual) Basophils # (Manual) PT INR Fibrinogen dRVVT Confirm Interp Factor V Activity POC ABG pH 7.461 H POC ABG pCO2 33.6 L POC ABG pO2 211 H ABG pO2 ABG HCO3 ABG Base Excess ABG Hemoglobin Oxyhemoglobin Sodium Potassium Chloride Carbon Dioxide BUN Creatinine Glucose POC Glucose 136 H Lactic Acid Calcium Phosphorus Magnesium Direct Bilirubin AST ALT Alkaline Phosphatase Lactate Dehydrogenase Troponin T C-Reactive Protein Total Protein Albumin Prealbumin Triglycerides Cholesterol LDL Cholesterol Direct HDL Cholesterol PTH Intact Urine pH Urine WBC (Auto) Urine Creatinine Urine Total Protein Fluid Total Protein Vancomycin Trough Rheumatoid Factor Complement C4 Miscellaneous Test Crossmatch 10/04/16 10/04/16 10/04/16 06:30 11:45 17:54 WBC RBC Hgb Hct MCV MCH MCHC RDW Plt Count Lymph % (Auto) [place] % (Auto) Lymph # [place] # Baso # Seg Neutrophils % Seg Neuts % (Manual) Lymphocytes % (Manual) Monocytes % (Manual) Eosinophils % (Manual) Basophils % (Manual) Nucleated RBC % Seg Neutrophils # Seg Neutrophils # Man Lymphocytes # (Manual) Monocytes # (Manual) Eosinophils # (Manual) Basophils # (Manual) PT INR Fibrinogen dRVVT Confirm Interp Factor V Activity POC ABG pH POC ABG pCO2 POC ABG pO2 ABG pO2 ABG HCO3 ABG Base Excess ABG Hemoglobin Oxyhemoglobin Sodium 128 L Potassium Chloride 87.4 L Carbon Dioxide 20 L BUN 34 H Creatinine 2.9 H Glucose 127 H POC Glucose 158 H 160 H Lactic Acid Calcium 7.4 L Phosphorus Magnesium Direct Bilirubin AST ALT Alkaline Phosphatase Lactate Dehydrogenase Troponin T C-Reactive Protein Total Protein Albumin Prealbumin Triglycerides Cholesterol LDL Cholesterol Direct HDL Cholesterol PTH Intact Urine pH Urine WBC (Auto) Urine Creatinine Urine Total Protein Fluid Total Protein Vancomycin Trough Rheumatoid Factor Complement C4 Miscellaneous Test Crossmatch 10/04/16 10/05/16 10/05/16 23:25 04:30 05:00 WBC RBC 2.64 L Hgb 7.5 L Hct 22.6 L MCV MCH MCHC RDW 19.3 H Plt Count 80 L Lymph % (Auto) [place] % (Auto) Lymph # [place] # Baso # Seg Neutrophils % Seg Neuts % (Manual) Lymphocytes % (Manual) 12.0 L Monocytes % (Manual) Eosinophils % (Manual) Basophils % (Manual) Nucleated RBC % Seg Neutrophils # Seg Neutrophils # Man Lymphocytes # (Manual) Monocytes # (Manual) Eosinophils # (Manual) Basophils # (Manual) PT INR Fibrinogen dRVVT Confirm Interp Factor V Activity POC ABG pH 7.475 H POC ABG pCO2 33.3 L POC ABG pO2 140 H ABG pO2 ABG HCO3 ABG Base Excess ABG Hemoglobin Oxyhemoglobin Sodium Potassium Chloride Carbon Dioxide BUN Creatinine Glucose POC Glucose 141 H Lactic Acid Calcium Phosphorus Magnesium Direct Bilirubin AST ALT Alkaline Phosphatase Lactate Dehydrogenase Troponin T C-Reactive Protein Total Protein Albumin Prealbumin Triglycerides Cholesterol LDL Cholesterol Direct HDL Cholesterol PTH Intact Urine pH Urine WBC (Auto) Urine Creatinine Urine Total Protein Fluid Total Protein Vancomycin Trough Rheumatoid Factor Complement C4 Miscellaneous Test Crossmatch 10/05/16 10/05/16 10/05/16 05:00 05:09 12:58 WBC RBC Hgb Hct MCV MCH MCHC RDW Plt Count Lymph % (Auto) [place] % (Auto) Lymph # [place] # Baso # Seg Neutrophils % Seg Neuts % (Manual) Lymphocytes % (Manual) Monocytes % (Manual) Eosinophils % (Manual) Basophils % (Manual) Nucleated RBC % Seg Neutrophils # Seg Neutrophils # Man Lymphocytes # (Manual) Monocytes # (Manual) Eosinophils # (Manual) Basophils # (Manual) PT INR Fibrinogen dRVVT Confirm Interp Factor V Activity POC ABG pH POC ABG pCO2 POC ABG pO2 ABG pO2 ABG HCO3 ABG Base Excess ABG Hemoglobin Oxyhemoglobin Sodium 131 L Potassium Chloride 94.0 L Carbon Dioxide 20 L BUN 22 H Creatinine 2.0 H Glucose 123 H POC Glucose 166 H 179 H Lactic Acid Calcium 7.7 L Phosphorus 2.20 L D Magnesium Direct Bilirubin AST ALT Alkaline Phosphatase Lactate Dehydrogenase Troponin T C-Reactive Protein Total Protein Albumin Prealbumin Triglycerides Cholesterol LDL Cholesterol Direct HDL Cholesterol PTH Intact Urine pH Urine WBC (Auto) Urine Creatinine Urine Total Protein Fluid Total Protein Vancomycin Trough Rheumatoid Factor Complement C4 Miscellaneous Test Crossmatch 10/05/16 10/05/16 10/05/16 15:50 18:53 23:12 WBC RBC Hgb Hct MCV MCH MCHC RDW Plt Count Lymph % (Auto) [place] % (Auto) Lymph # [place] # Baso # Seg Neutrophils % Seg Neuts % (Manual) Lymphocytes % (Manual) Monocytes % (Manual) Eosinophils % (Manual) Basophils % (Manual) Nucleated RBC % Seg Neutrophils # Seg Neutrophils # Man Lymphocytes # (Manual) Monocytes # (Manual) Eosinophils # (Manual) Basophils # (Manual) PT INR Fibrinogen dRVVT Confirm Interp Factor V Activity POC ABG pH POC ABG pCO2 POC ABG pO2 ABG pO2 ABG HCO3 ABG Base Excess ABG Hemoglobin Oxyhemoglobin Sodium Potassium Chloride Carbon Dioxide BUN Creatinine Glucose POC Glucose 150 H 164 H Lactic Acid Calcium Phosphorus Magnesium Direct Bilirubin AST ALT Alkaline Phosphatase Lactate Dehydrogenase Troponin T C-Reactive Protein Total Protein Albumin Prealbumin Triglycerides Cholesterol LDL Cholesterol Direct HDL Cholesterol PTH Intact Urine pH Urine WBC (Auto) Urine Creatinine Urine Total Protein Fluid Total Protein Vancomycin Trough Rheumatoid Factor Complement C4 Miscellaneous Test Crossmatch See Detail 10/06/16 10/06/16 10/06/16 03:50 03:50 04:53 WBC RBC 3.00 L Hgb 8.6 L Hct 25.8 L MCV MCH MCHC RDW 17.9 H Plt Count 65 L Lymph % (Auto) [place] % (Auto) Lymph # [place] # Baso # Seg Neutrophils % Seg Neuts % (Manual) 30.0 L Lymphocytes % (Manual) 5.0 L Monocytes % (Manual) Eosinophils % (Manual) Basophils % (Manual) Nucleated RBC % Seg Neutrophils # Seg Neutrophils # Man Lymphocytes # (Manual) 0.4 L Monocytes # (Manual) Eosinophils # (Manual) Basophils # (Manual) PT INR Fibrinogen dRVVT Confirm Interp Factor V Activity POC ABG pH 7.310 L POC ABG pCO2 49.0 H POC ABG pO2 ABG pO2 ABG HCO3 ABG Base Excess ABG Hemoglobin Oxyhemoglobin Sodium 133 L Potassium Chloride 95.9 L Carbon Dioxide BUN 26 H Creatinine 2.0 H Glucose 116 H POC Glucose Lactic Acid Calcium 7.8 L Phosphorus Magnesium Direct Bilirubin AST ALT Alkaline Phosphatase Lactate Dehydrogenase Troponin T C-Reactive Protein Total Protein Albumin Prealbumin Triglycerides Cholesterol LDL Cholesterol Direct HDL Cholesterol PTH Intact Urine pH Urine WBC (Auto) Urine Creatinine Urine Total Protein Fluid Total Protein Vancomycin Trough Rheumatoid Factor Complement C4 Miscellaneous Test Crossmatch 10/06/16 10/06/16 10/06/16 05:23 11:52 18:34 WBC RBC Hgb Hct MCV MCH MCHC RDW Plt Count Lymph % (Auto) [place] % (Auto) Lymph # [place] # Baso # Seg Neutrophils % Seg Neuts % (Manual) Lymphocytes % (Manual) Monocytes % (Manual) Eosinophils % (Manual) Basophils % (Manual) Nucleated RBC % Seg Neutrophils # Seg Neutrophils # Man Lymphocytes # (Manual) Monocytes # (Manual) Eosinophils # (Manual) Basophils # (Manual) PT INR Fibrinogen dRVVT Confirm Interp Factor V Activity POC ABG pH POC ABG pCO2 POC ABG pO2 ABG pO2 ABG HCO3 ABG Base Excess ABG Hemoglobin Oxyhemoglobin Sodium Potassium Chloride Carbon Dioxide BUN Creatinine Glucose POC Glucose 126 H 116 H 129 H Lactic Acid Calcium Phosphorus Magnesium Direct Bilirubin AST ALT Alkaline Phosphatase Lactate Dehydrogenase Troponin T C-Reactive Protein Total Protein Albumin Prealbumin Triglycerides Cholesterol LDL Cholesterol Direct HDL Cholesterol PTH Intact Urine pH Urine WBC (Auto) Urine Creatinine Urine Total Protein Fluid Total Protein Vancomycin Trough Rheumatoid Factor Complement C4 Miscellaneous Test Crossmatch 10/07/16 10/07/16 10/07/16 03:45 05:00 10:00 WBC 17.0 H RBC 2.68 L Hgb 7.3 L Hct 25.3 L MCV MCH 27 L MCHC 29 L RDW 19.6 H Plt Count 74 L Lymph % (Auto) [place] % (Auto) Lymph # [place] # Baso # Seg Neutrophils % Seg Neuts % (Manual) Lymphocytes % (Manual) 12.0 L Monocytes % (Manual) Eosinophils % (Manual) Basophils % (Manual) Nucleated RBC % 4.0 H Seg Neutrophils # Seg Neutrophils # Man 10.7 H Lymphocytes # (Manual) Monocytes # (Manual) Eosinophils # (Manual) Basophils # (Manual) PT INR Fibrinogen dRVVT Confirm Interp Factor V Activity POC ABG pH POC ABG pCO2 POC ABG pO2 ABG pO2 ABG HCO3 ABG Base Excess ABG Hemoglobin Oxyhemoglobin Sodium 130 L Potassium 3.2 L Chloride 93.9 L Carbon Dioxide 20 L BUN 44 H Creatinine 2.7 H Glucose 129 H POC Glucose Lactic Acid Calcium 7.4 L Phosphorus Magnesium Direct Bilirubin AST ALT 6 L Alkaline Phosphatase 195 H Lactate Dehydrogenase Troponin T C-Reactive Protein Total Protein 4.9 L Albumin 1.0 L Prealbumin Triglycerides Cholesterol LDL Cholesterol Direct HDL Cholesterol PTH Intact Urine pH Urine WBC (Auto) Urine Creatinine Urine Total Protein Fluid Total Protein Vancomycin Trough Rheumatoid Factor Complement C4 Miscellaneous Test Flexitest 1 H Crossmatch 10/07/16 10/07/16 10/07/16 10:00 11:24 18:10 WBC RBC Hgb Hct MCV MCH MCHC RDW Plt Count Lymph % (Auto) [place] % (Auto) Lymph # [place] # Baso # Seg Neutrophils % Seg Neuts % (Manual) Lymphocytes % (Manual) Monocytes % (Manual) Eosinophils % (Manual) Basophils % (Manual) Nucleated RBC % Seg Neutrophils # Seg Neutrophils # Man Lymphocytes # (Manual) Monocytes # (Manual) Eosinophils # (Manual) Basophils # (Manual) PT INR Fibrinogen dRVVT Confirm Interp Factor V Activity POC ABG pH POC ABG pCO2 POC ABG pO2 ABG pO2 ABG HCO3 ABG Base Excess ABG Hemoglobin Oxyhemoglobin Sodium Potassium Chloride Carbon Dioxide BUN Creatinine Glucose POC Glucose 116 H 130 H Lactic Acid Calcium Phosphorus Magnesium Direct Bilirubin AST ALT Alkaline Phosphatase Lactate Dehydrogenase Troponin T C-Reactive Protein 19.40 H Total Protein Albumin Prealbumin Triglycerides Cholesterol LDL Cholesterol Direct HDL Cholesterol PTH Intact Urine pH Urine WBC (Auto) Urine Creatinine Urine Total Protein Fluid Total Protein Vancomycin Trough Rheumatoid Factor Complement C4 Miscellaneous Test Crossmatch 10/07/16 10/08/16 10/08/16 18:30 00:00 04:00 WBC RBC Hgb Hct MCV MCH MCHC RDW Plt Count Lymph % (Auto) [place] % (Auto) Lymph # [place] # Baso # Seg Neutrophils % Seg Neuts % (Manual) Lymphocytes % (Manual) Monocytes % (Manual) Eosinophils % (Manual) Basophils % (Manual) Nucleated RBC % Seg Neutrophils # Seg Neutrophils # Man Lymphocytes # (Manual) Monocytes # (Manual) Eosinophils # (Manual) Basophils # (Manual) PT INR Fibrinogen dRVVT Confirm Interp Factor V Activity POC ABG pH POC ABG pCO2 POC ABG pO2 ABG pO2 ABG HCO3 ABG Base Excess ABG Hemoglobin Oxyhemoglobin Sodium 132 L Potassium 3.3 L Chloride 93.6 L Carbon Dioxide 17 L BUN 59 H Creatinine 2.7 H Glucose 121 H POC Glucose 122 H Lactic Acid Calcium 7.6 L Phosphorus Magnesium Direct Bilirubin AST ALT Alkaline Phosphatase Lactate Dehydrogenase Troponin T C-Reactive Protein Total Protein Albumin Prealbumin Triglycerides Cholesterol LDL Cholesterol Direct HDL Cholesterol PTH Intact Urine pH Urine WBC (Auto) > 182.0 H Urine Creatinine Urine Total Protein Fluid Total Protein Vancomycin Trough Rheumatoid Factor Complement C4 Miscellaneous Test Crossmatch 10/08/16 10/08/16 10/08/16 04:30 05:30 11:51 WBC RBC 5.15 H Hgb 14.4 H D Hct 44.5 H D MCV MCH MCHC RDW 19.5 H Plt Count 56 L Lymph % (Auto) [place] % (Auto) Lymph # [place] # Baso # Seg Neutrophils % Seg Neuts % (Manual) 24.0 L Lymphocytes % (Manual) 8.0 L Monocytes % (Manual) Eosinophils % (Manual) Basophils % (Manual) Nucleated RBC % 9.0 H Seg Neutrophils # Seg Neutrophils # Man Lymphocytes # (Manual) 0.7 L Monocytes # (Manual) Eosinophils # (Manual) Basophils # (Manual) PT INR Fibrinogen dRVVT Confirm Interp Factor V Activity POC ABG pH POC ABG pCO2 POC ABG pO2 ABG pO2 ABG HCO3 ABG Base Excess ABG Hemoglobin Oxyhemoglobin Sodium Potassium Chloride Carbon Dioxide BUN Creatinine Glucose POC Glucose 125 H 150 H Lactic Acid Calcium Phosphorus Magnesium Direct Bilirubin AST ALT Alkaline Phosphatase Lactate Dehydrogenase Troponin T C-Reactive Protein Total Protein Albumin Prealbumin Triglycerides Cholesterol LDL Cholesterol Direct HDL Cholesterol PTH Intact Urine pH Urine WBC (Auto) Urine Creatinine Urine Total Protein Fluid Total Protein Vancomycin Trough Rheumatoid Factor Complement C4 Miscellaneous Test Crossmatch 10/08/16 10/08/16 10/08/16 12:49 17:07 19:30 WBC RBC Hgb 7.1 L D Hct 22.4 L D MCV MCH MCHC RDW Plt Count Lymph % (Auto) [place] % (Auto) Lymph # [place] # Baso # Seg Neutrophils % Seg Neuts % (Manual) Lymphocytes % (Manual) Monocytes % (Manual) Eosinophils % (Manual) Basophils % (Manual) Nucleated RBC % Seg Neutrophils # Seg Neutrophils # Man Lymphocytes # (Manual) Monocytes # (Manual) Eosinophils # (Manual) Basophils # (Manual) PT INR Fibrinogen dRVVT Confirm Interp Factor V Activity POC ABG pH POC ABG pCO2 28.2 L POC ABG pO2 111 H ABG pO2 ABG HCO3 ABG Base Excess ABG Hemoglobin Oxyhemoglobin Sodium Potassium Chloride Carbon Dioxide BUN Creatinine Glucose POC Glucose 145 H Lactic Acid Calcium Phosphorus Magnesium Direct Bilirubin AST ALT Alkaline Phosphatase Lactate Dehydrogenase Troponin T C-Reactive Protein Total Protein Albumin Prealbumin Triglycerides Cholesterol LDL Cholesterol Direct HDL Cholesterol PTH Intact Urine pH Urine WBC (Auto) Urine Creatinine Urine Total Protein Fluid Total Protein Vancomycin Trough Rheumatoid Factor Complement C4 Miscellaneous Test Crossmatch 10/08/16 10/09/16 10/09/16 19:30 03:45 03:45 WBC 12.6 H RBC 2.36 L Hgb 6.7 L Hct 21.1 L MCV MCH MCHC RDW 19.5 H Plt Count 75 L Lymph % (Auto) [place] % (Auto) Lymph # [place] # Baso # Seg Neutrophils % Seg Neuts % (Manual) Lymphocytes % (Manual) Monocytes % (Manual) 10.0 H Eosinophils % (Manual) Basophils % (Manual) Nucleated RBC % 3.0 H Seg Neutrophils # Seg Neutrophils # Man Lymphocytes # (Manual) Monocytes # (Manual) 1.3 H Eosinophils # (Manual) Basophils # (Manual) PT 18.0 H INR 1.41 H Fibrinogen dRVVT Confirm Interp Factor V Activity POC ABG pH POC ABG pCO2 POC ABG pO2 ABG pO2 ABG HCO3 ABG Base Excess ABG Hemoglobin Oxyhemoglobin Sodium 135 L Potassium Chloride Carbon Dioxide 17 L BUN 81 H Creatinine 3.2 H Glucose 109 H POC Glucose Lactic Acid Calcium 7.4 L Phosphorus 4.60 H D Magnesium Direct Bilirubin AST ALT Alkaline Phosphatase Lactate Dehydrogenase Troponin T C-Reactive Protein Total Protein Albumin Prealbumin Triglycerides Cholesterol LDL Cholesterol Direct HDL Cholesterol PTH Intact Urine pH Urine WBC (Auto) Urine Creatinine Urine Total Protein Fluid Total Protein Vancomycin Trough Rheumatoid Factor Complement C4 Miscellaneous Test Crossmatch 10/09/16 10/09/16 10/09/16 03:45 05:14 07:20 WBC RBC Hgb Hct MCV MCH MCHC RDW Plt Count Lymph % (Auto) [place] % (Auto) Lymph # [place] # Baso # Seg Neutrophils % Seg Neuts % (Manual) Lymphocytes % (Manual) Monocytes % (Manual) Eosinophils % (Manual) Basophils % (Manual) Nucleated RBC % Seg Neutrophils # Seg Neutrophils # Man Lymphocytes # (Manual) Monocytes # (Manual) Eosinophils # (Manual) Basophils # (Manual) PT 19.0 H INR 1.51 H Fibrinogen dRVVT Confirm Interp Factor V Activity POC ABG pH POC ABG pCO2 POC ABG pO2 ABG pO2 ABG HCO3 ABG Base Excess ABG Hemoglobin Oxyhemoglobin Sodium Potassium Chloride Carbon Dioxide BUN Creatinine Glucose POC Glucose 151 H Lactic Acid Calcium Phosphorus Magnesium Direct Bilirubin AST ALT Alkaline Phosphatase Lactate Dehydrogenase Troponin T C-Reactive Protein Total Protein Albumin Prealbumin Triglycerides Cholesterol LDL Cholesterol Direct HDL Cholesterol PTH Intact Urine pH Urine WBC (Auto) Urine Creatinine Urine Total Protein Fluid Total Protein Vancomycin Trough Rheumatoid Factor Complement C4 Miscellaneous Test Crossmatch See Detail 10/09/16 10/09/16 10/09/16 11:46 16:20 16:43 WBC RBC Hgb 7.2 L Hct 22.2 L MCV MCH MCHC RDW Plt Count Lymph % (Auto) [place] % (Auto) Lymph # [place] # Baso # Seg Neutrophils % Seg Neuts % (Manual) Lymphocytes % (Manual) Monocytes % (Manual) Eosinophils % (Manual) Basophils % (Manual) Nucleated RBC % Seg Neutrophils # Seg Neutrophils # Man Lymphocytes # (Manual) Monocytes # (Manual) Eosinophils # (Manual) Basophils # (Manual) PT INR Fibrinogen dRVVT Confirm Interp Factor V Activity POC ABG pH POC ABG pCO2 POC ABG pO2 ABG pO2 ABG HCO3 ABG Base Excess ABG Hemoglobin Oxyhemoglobin Sodium Potassium Chloride Carbon Dioxide BUN Creatinine Glucose POC Glucose 133 H 141 H Lactic Acid Calcium Phosphorus Magnesium Direct Bilirubin AST ALT Alkaline Phosphatase Lactate Dehydrogenase Troponin T C-Reactive Protein Total Protein Albumin Prealbumin Triglycerides Cholesterol LDL Cholesterol Direct HDL Cholesterol PTH Intact Urine pH Urine WBC (Auto) Urine Creatinine Urine Total Protein Fluid Total Protein Vancomycin Trough Rheumatoid Factor Complement C4 Miscellaneous Test Crossmatch 10/10/16 10/10/16 10/10/16 05:00 05:00 11:19 WBC 18.5 H RBC 2.19 L Hgb 6.4 L Hct 19.6 L* MCV MCH MCHC RDW 19.3 H Plt Count 93 L Lymph % (Auto) [place] % (Auto) Lymph # [place] # Baso # Seg Neutrophils % Seg Neuts % (Manual) Lymphocytes % (Manual) 10.0 L Monocytes % (Manual) Eosinophils % (Manual) Basophils % (Manual) Nucleated RBC % 4.0 H Seg Neutrophils # Seg Neutrophils # Man 11.3 H Lymphocytes # (Manual) Monocytes # (Manual) Eosinophils # (Manual) Basophils # (Manual) PT INR Fibrinogen dRVVT Confirm Interp Factor V Activity POC ABG pH POC ABG pCO2 POC ABG pO2 ABG pO2 ABG HCO3 ABG Base Excess ABG Hemoglobin Oxyhemoglobin Sodium Potassium 5.7 H D Chloride Carbon Dioxide 16 L BUN 94 H Creatinine 3.1 H Glucose 131 H POC Glucose 153 H Lactic Acid Calcium 8.2 L Phosphorus 5.10 H Magnesium 2.40 H Direct Bilirubin 0.3 H AST ALT < 5 L Alkaline Phosphatase 319 H Lactate Dehydrogenase Troponin T C-Reactive Protein Total Protein 5.1 L Albumin 1.0 L Prealbumin Triglycerides Cholesterol LDL Cholesterol Direct HDL Cholesterol PTH Intact Urine pH Urine WBC (Auto) Urine Creatinine Urine Total Protein Fluid Total Protein Vancomycin Trough Rheumatoid Factor Complement C4 Miscellaneous Test Crossmatch 10/10/16 10/10/16 10/11/16 17:50 23:30 04:15 WBC RBC Hgb Hct MCV MCH MCHC RDW Plt Count Lymph % (Auto) [place] % (Auto) Lymph # [place] # Baso # Seg Neutrophils % Seg Neuts % (Manual) Lymphocytes % (Manual) Monocytes % (Manual) Eosinophils % (Manual) Basophils % (Manual) Nucleated RBC % Seg Neutrophils # Seg Neutrophils # Man Lymphocytes # (Manual) Monocytes # (Manual) Eosinophils # (Manual) Basophils # (Manual) PT INR Fibrinogen dRVVT Confirm Interp Factor V Activity POC ABG pH POC ABG pCO2 POC ABG pO2 ABG pO2 ABG HCO3 ABG Base Excess ABG Hemoglobin Oxyhemoglobin Sodium Potassium Chloride 96.4 L Carbon Dioxide 21 L BUN 57 H Creatinine 2.1 H Glucose 151 H POC Glucose 146 H 141 H Lactic Acid Calcium 8.3 L Phosphorus Magnesium Direct Bilirubin AST ALT Alkaline Phosphatase Lactate Dehydrogenase Troponin T C-Reactive Protein Total Protein Albumin Prealbumin Triglycerides Cholesterol LDL Cholesterol Direct HDL Cholesterol PTH Intact Urine pH Urine WBC (Auto) Urine Creatinine Urine Total Protein Fluid Total Protein Vancomycin Trough Rheumatoid Factor Complement C4 Miscellaneous Test Crossmatch 10/11/16 10/11/16 10/11/16 04:15 04:15 05:30 WBC 28.3 H RBC 3.12 L Hgb 9.3 L Hct 28.7 L D MCV MCH MCHC RDW 17.7 H Plt Count 128 L Lymph % (Auto) [place] % (Auto) Lymph # [place] # Baso # Seg Neutrophils % Seg Neuts % (Manual) Lymphocytes % (Manual) Monocytes % (Manual) Eosinophils % (Manual) Basophils % (Manual) Nucleated RBC % Seg Neutrophils # Seg Neutrophils # Man Lymphocytes # (Manual) Monocytes # (Manual) Eosinophils # (Manual) Basophils # (Manual) PT INR Fibrinogen dRVVT Confirm Interp Factor V Activity POC ABG pH POC ABG pCO2 POC ABG pO2 ABG pO2 ABG HCO3 ABG Base Excess ABG Hemoglobin Oxyhemoglobin Sodium Potassium Chloride Carbon Dioxide BUN Creatinine Glucose POC Glucose 167 H Lactic Acid Calcium Phosphorus Magnesium Direct Bilirubin AST ALT Alkaline Phosphatase Lactate Dehydrogenase Troponin T C-Reactive Protein 15.80 H Total Protein Albumin Prealbumin Triglycerides Cholesterol LDL Cholesterol Direct HDL Cholesterol PTH Intact Urine pH Urine WBC (Auto) Urine Creatinine Urine Total Protein Fluid Total Protein Vancomycin Trough Rheumatoid Factor Complement C4 Miscellaneous Test Crossmatch 10/11/16 10/11/16 10/11/16 11:40 15:49 23:57 WBC RBC Hgb Hct MCV MCH MCHC RDW Plt Count Lymph % (Auto) [place] % (Auto) Lymph # [place] # Baso # Seg Neutrophils % Seg Neuts % (Manual) Lymphocytes % (Manual) Monocytes % (Manual) Eosinophils % (Manual) Basophils % (Manual) Nucleated RBC % Seg Neutrophils # Seg Neutrophils # Man Lymphocytes # (Manual) Monocytes # (Manual) Eosinophils # (Manual) Basophils # (Manual) PT INR Fibrinogen dRVVT Confirm Interp Factor V Activity POC ABG pH POC ABG pCO2 POC ABG pO2 ABG pO2 ABG HCO3 ABG Base Excess ABG Hemoglobin Oxyhemoglobin Sodium Potassium Chloride Carbon Dioxide BUN Creatinine Glucose POC Glucose 139 H 168 H 161 H Lactic Acid Calcium Phosphorus Magnesium Direct Bilirubin AST ALT Alkaline Phosphatase Lactate Dehydrogenase Troponin T C-Reactive Protein Total Protein Albumin Prealbumin Triglycerides Cholesterol LDL Cholesterol Direct HDL Cholesterol PTH Intact Urine pH Urine WBC (Auto) Urine Creatinine Urine Total Protein Fluid Total Protein Vancomycin Trough Rheumatoid Factor Complement C4 Miscellaneous Test Crossmatch 10/12/16 10/12/16 10/12/16 04:40 04:40 05:44 WBC 22.5 H RBC 2.88 L Hgb 8.8 L Hct 26.8 L MCV MCH MCHC RDW 17.8 H Plt Count Lymph % (Auto) [place] % (Auto) Lymph # [place] # Baso # Seg Neutrophils % Seg Neuts % (Manual) Lymphocytes % (Manual) Monocytes % (Manual) Eosinophils % (Manual) Basophils % (Manual) Nucleated RBC % Seg Neutrophils # Seg Neutrophils # Man Lymphocytes # (Manual) Monocytes # (Manual) Eosinophils # (Manual) Basophils # (Manual) PT INR Fibrinogen dRVVT Confirm Interp Factor V Activity POC ABG pH POC ABG pCO2 POC ABG pO2 ABG pO2 ABG HCO3 ABG Base Excess ABG Hemoglobin Oxyhemoglobin Sodium 134 L Potassium Chloride 93.0 L Carbon Dioxide BUN 74 H Creatinine 2.5 H Glucose 137 H POC Glucose 158 H Lactic Acid Calcium 8.2 L Phosphorus Magnesium Direct Bilirubin AST ALT Alkaline Phosphatase Lactate Dehydrogenase Troponin T C-Reactive Protein Total Protein Albumin Prealbumin Triglycerides Cholesterol LDL Cholesterol Direct HDL Cholesterol PTH Intact Urine pH Urine WBC (Auto) Urine Creatinine Urine Total Protein Fluid Total Protein Vancomycin Trough Rheumatoid Factor Complement C4 Miscellaneous Test Crossmatch 10/12/16 10/12/16 10/12/16 12:27 18:18 23:46 WBC RBC Hgb Hct MCV MCH MCHC RDW Plt Count Lymph % (Auto) [place] % (Auto) Lymph # [place] # Baso # Seg Neutrophils % Seg Neuts % (Manual) Lymphocytes % (Manual) Monocytes % (Manual) Eosinophils % (Manual) Basophils % (Manual) Nucleated RBC % Seg Neutrophils # Seg Neutrophils # Man Lymphocytes # (Manual) Monocytes # (Manual) Eosinophils # (Manual) Basophils # (Manual) PT INR Fibrinogen dRVVT Confirm Interp Factor V Activity POC ABG pH POC ABG pCO2 POC ABG pO2 ABG pO2 ABG HCO3 ABG Base Excess ABG Hemoglobin Oxyhemoglobin Sodium Potassium Chloride Carbon Dioxide BUN Creatinine Glucose POC Glucose 153 H 140 H 150 H Lactic Acid Calcium Phosphorus Magnesium Direct Bilirubin AST ALT Alkaline Phosphatase Lactate Dehydrogenase Troponin T C-Reactive Protein Total Protein Albumin Prealbumin Triglycerides Cholesterol LDL Cholesterol Direct HDL Cholesterol PTH Intact Urine pH Urine WBC (Auto) Urine Creatinine Urine Total Protein Fluid Total Protein Vancomycin Trough Rheumatoid Factor Complement C4 Miscellaneous Test Crossmatch 10/13/16 10/13/16 10/13/16 06:22 09:20 12:29 WBC RBC Hgb Hct MCV MCH MCHC RDW Plt Count Lymph % (Auto) [place] % (Auto) Lymph # [place] # Baso # Seg Neutrophils % Seg Neuts % (Manual) Lymphocytes % (Manual) Monocytes % (Manual) Eosinophils % (Manual) Basophils % (Manual) Nucleated RBC % Seg Neutrophils # Seg Neutrophils # Man Lymphocytes # (Manual) Monocytes # (Manual) Eosinophils # (Manual) Basophils # (Manual) PT INR Fibrinogen dRVVT Confirm Interp Factor V Activity POC ABG pH POC ABG pCO2 POC ABG pO2 ABG pO2 ABG HCO3 ABG Base Excess ABG Hemoglobin Oxyhemoglobin Sodium Potassium Chloride Carbon Dioxide BUN Creatinine Glucose POC Glucose 165 H 193 H Lactic Acid Calcium Phosphorus Magnesium Direct Bilirubin AST ALT Alkaline Phosphatase Lactate Dehydrogenase Troponin T C-Reactive Protein Total Protein Albumin Prealbumin Triglycerides Cholesterol LDL Cholesterol Direct HDL Cholesterol PTH Intact Urine pH Urine WBC (Auto) Urine Creatinine Urine Total Protein Fluid Total Protein Vancomycin Trough Rheumatoid Factor Complement C4 Miscellaneous Test Flexitest 1 H Crossmatch 10/13/16 10/13/16 10/13/16 18:09 Unknown Unknown WBC 23.4 H RBC 2.83 L Hgb 8.7 L Hct 26.1 L MCV MCH MCHC RDW 18.1 H Plt Count Lymph % (Auto) [place] % (Auto) Lymph # [place] # Baso # Seg Neutrophils % Seg Neuts % (Manual) Lymphocytes % (Manual) Monocytes % (Manual) Eosinophils % (Manual) Basophils % (Manual) Nucleated RBC % Seg Neutrophils # Seg Neutrophils # Man Lymphocytes # (Manual) Monocytes # (Manual) Eosinophils # (Manual) Basophils # (Manual) PT INR Fibrinogen dRVVT Confirm Interp Factor V Activity POC ABG pH POC ABG pCO2 POC ABG pO2 ABG pO2 ABG HCO3 ABG Base Excess ABG Hemoglobin Oxyhemoglobin Sodium Potassium Chloride 95.8 L Carbon Dioxide BUN 82 H Creatinine 2.6 H Glucose 152 H POC Glucose 166 H Lactic Acid Calcium Phosphorus Magnesium Direct Bilirubin AST ALT Alkaline Phosphatase Lactate Dehydrogenase Troponin T C-Reactive Protein Total Protein Albumin Prealbumin Triglycerides Cholesterol LDL Cholesterol Direct HDL Cholesterol PTH Intact Urine pH Urine WBC (Auto) Urine Creatinine Urine Total Protein Fluid Total Protein Vancomycin Trough Rheumatoid Factor Complement C4 Miscellaneous Test Crossmatch 0810/14/16 10/14/16 05:38 06:35 08:10 WBC 20.7 H RBC 2.81 L Hgb 8.4 L Hct 27.2 L MCV MCH MCHC RDW 19.4 H Plt Count Lymph % (Auto) [place] % (Auto) Lymph # [place] # Baso # Seg Neutrophils % Seg Neuts % (Manual) Lymphocytes % (Manual) Monocytes % (Manual) Eosinophils % (Manual) Basophils % (Manual) Nucleated RBC % Seg Neutrophils # Seg Neutrophils # Man Lymphocytes # (Manual) Monocytes # (Manual) Eosinophils # (Manual) Basophils # (Manual) PT INR Fibrinogen dRVVT Confirm Interp Factor V Activity POC ABG pH POC ABG pCO2 POC ABG pO2 ABG pO2 ABG HCO3 ABG Base Excess ABG Hemoglobin Oxyhemoglobin Sodium Potassium Chloride Carbon Dioxide BUN 58 H Creatinine 1.9 H Glucose 169 H POC Glucose 195 H Lactic Acid Calcium Phosphorus Magnesium Direct Bilirubin AST ALT Alkaline Phosphatase Lactate Dehydrogenase Troponin T C-Reactive Protein Total Protein Albumin Prealbumin Triglycerides Cholesterol LDL Cholesterol Direct HDL Cholesterol PTH Intact Urine pH Urine WBC (Auto) Urine Creatinine Urine Total Protein Fluid Total Protein Vancomycin Trough Rheumatoid Factor Complement C4 Miscellaneous Test Crossmatch 10/14/16 10/14/16 10/14/16 11:44 17:13 23:28 WBC RBC Hgb Hct MCV MCH MCHC RDW Plt Count Lymph % (Auto) [place] % (Auto) Lymph # [place] # Baso # Seg Neutrophils % Seg Neuts % (Manual) Lymphocytes % (Manual) Monocytes % (Manual) Eosinophils % (Manual) Basophils % (Manual) Nucleated RBC % Seg Neutrophils # Seg Neutrophils # Man Lymphocytes # (Manual) Monocytes # (Manual) Eosinophils # (Manual) Basophils # (Manual) PT INR Fibrinogen dRVVT Confirm Interp Factor V Activity POC ABG pH POC ABG pCO2 POC ABG pO2 ABG pO2 ABG HCO3 ABG Base Excess ABG Hemoglobin Oxyhemoglobin Sodium Potassium Chloride Carbon Dioxide BUN Creatinine Glucose POC Glucose 174 H 121 H 151 H Lactic Acid Calcium Phosphorus Magnesium Direct Bilirubin AST ALT Alkaline Phosphatase Lactate Dehydrogenase Troponin T C-Reactive Protein Total Protein Albumin Prealbumin Triglycerides Cholesterol LDL Cholesterol Direct HDL Cholesterol PTH Intact Urine pH Urine WBC (Auto) Urine Creatinine Urine Total Protein Fluid Total Protein Vancomycin Trough Rheumatoid Factor Complement C4 Miscellaneous Test Crossmatch 10/15/16 10/15/16 10/15/16 05:06 12:26 17:48 WBC RBC Hgb Hct MCV MCH MCHC RDW Plt Count Lymph % (Auto) [place] % (Auto) Lymph # [place] # Baso # Seg Neutrophils % Seg Neuts % (Manual) Lymphocytes % (Manual) Monocytes % (Manual) Eosinophils % (Manual) Basophils % (Manual) Nucleated RBC % Seg Neutrophils # Seg Neutrophils # Man Lymphocytes # (Manual) Monocytes # (Manual) Eosinophils # (Manual) Basophils # (Manual) PT INR Fibrinogen dRVVT Confirm Interp Factor V Activity POC ABG pH POC ABG pCO2 POC ABG pO2 ABG pO2 ABG HCO3 ABG Base Excess ABG Hemoglobin Oxyhemoglobin Sodium Potassium Chloride Carbon Dioxide BUN Creatinine Glucose POC Glucose 151 H 149 H 153 H Lactic Acid Calcium Phosphorus Magnesium Direct Bilirubin AST ALT Alkaline Phosphatase Lactate Dehydrogenase Troponin T C-Reactive Protein Total Protein Albumin Prealbumin Triglycerides Cholesterol LDL Cholesterol Direct HDL Cholesterol PTH Intact Urine pH Urine WBC (Auto) Urine Creatinine Urine Total Protein Fluid Total Protein Vancomycin Trough Rheumatoid Factor Complement C4 Miscellaneous Test Crossmatch 10/15/16 10/15/16 10/16/16 Unknown Unknown 00:02 WBC 23.4 H RBC 2.78 L Hgb 8.5 L Hct 25.7 L MCV MCH MCHC RDW 18.7 H Plt Count Lymph % (Auto) [place] % (Auto) Lymph # [place] # Baso # Seg Neutrophils % Seg Neuts % (Manual) Lymphocytes % (Manual) Monocytes % (Manual) Eosinophils % (Manual) Basophils % (Manual) Nucleated RBC % Seg Neutrophils # Seg Neutrophils # Man Lymphocytes # (Manual) Monocytes # (Manual) Eosinophils # (Manual) Basophils # (Manual) PT INR Fibrinogen dRVVT Confirm Interp Factor V Activity POC ABG pH POC ABG pCO2 POC ABG pO2 ABG pO2 ABG HCO3 ABG Base Excess ABG Hemoglobin Oxyhemoglobin Sodium Potassium Chloride Carbon Dioxide BUN 73 H Creatinine 2.3 H Glucose 120 H POC Glucose 137 H Lactic Acid Calcium Phosphorus Magnesium Direct Bilirubin AST ALT Alkaline Phosphatase Lactate Dehydrogenase Troponin T C-Reactive Protein Total Protein Albumin Prealbumin Triglycerides Cholesterol LDL Cholesterol Direct HDL Cholesterol PTH Intact Urine pH Urine WBC (Auto) Urine Creatinine Urine Total Protein Fluid Total Protein Vancomycin Trough Rheumatoid Factor Complement C4 Miscellaneous Test Crossmatch 10/16/16 10/16/16 10/16/16 05:44 06:25 06:25 WBC 22.5 H RBC 2.76 L Hgb 8.3 L Hct 25.2 L MCV MCH MCHC RDW 18.3 H Plt Count Lymph % (Auto) [place] % (Auto) Lymph # [place] # Baso # Seg Neutrophils % Seg Neuts % (Manual) Lymphocytes % (Manual) Monocytes % (Manual) Eosinophils % (Manual) Basophils % (Manual) Nucleated RBC % Seg Neutrophils # Seg Neutrophils # Man Lymphocytes # (Manual) Monocytes # (Manual) Eosinophils # (Manual) Basophils # (Manual) PT INR Fibrinogen dRVVT Confirm Interp Factor V Activity POC ABG pH POC ABG pCO2 POC ABG pO2 ABG pO2 ABG HCO3 ABG Base Excess ABG Hemoglobin Oxyhemoglobin Sodium Potassium Chloride Carbon Dioxide BUN 92 H Creatinine 3.0 H Glucose 138 H POC Glucose 110 H Lactic Acid Calcium Phosphorus Magnesium Direct Bilirubin AST ALT Alkaline Phosphatase Lactate Dehydrogenase Troponin T C-Reactive Protein Total Protein Albumin Prealbumin Triglycerides Cholesterol LDL Cholesterol Direct HDL Cholesterol PTH Intact Urine pH Urine WBC (Auto) Urine Creatinine Urine Total Protein Fluid Total Protein Vancomycin Trough Rheumatoid Factor Complement C4 Miscellaneous Test Crossmatch 10/16/16 10/16/16 10/16/16 11:27 11:48 17:36 WBC RBC Hgb Hct MCV MCH MCHC RDW Plt Count Lymph % (Auto) [place] % (Auto) Lymph # [place] # Baso # Seg Neutrophils % Seg Neuts % (Manual) Lymphocytes % (Manual) Monocytes % (Manual) Eosinophils % (Manual) Basophils % (Manual) Nucleated RBC % Seg Neutrophils # Seg Neutrophils # Man Lymphocytes # (Manual) Monocytes # (Manual) Eosinophils # (Manual) Basophils # (Manual) PT INR Fibrinogen dRVVT Confirm Interp Factor V Activity POC ABG pH 7.582 H POC ABG pCO2 27.4 L POC ABG pO2 110 H ABG pO2 ABG HCO3 ABG Base Excess ABG Hemoglobin Oxyhemoglobin Sodium Potassium Chloride Carbon Dioxide BUN Creatinine Glucose POC Glucose 121 H 133 H Lactic Acid Calcium Phosphorus Magnesium Direct Bilirubin AST ALT Alkaline Phosphatase Lactate Dehydrogenase Troponin T C-Reactive Protein Total Protein Albumin Prealbumin Triglycerides Cholesterol LDL Cholesterol Direct HDL Cholesterol PTH Intact Urine pH Urine WBC (Auto) Urine Creatinine Urine Total Protein Fluid Total Protein Vancomycin Trough Rheumatoid Factor Complement C4 Miscellaneous Test Crossmatch 10/16/16 10/17/16 10/17/16 20:48 04:24 04:24 WBC 21.4 H RBC 2.72 L Hgb 8.0 L Hct 25.2 L MCV MCH MCHC RDW 18.0 H Plt Count Lymph % (Auto) [place] % (Auto) Lymph # [place] # Baso # Seg Neutrophils % Seg Neuts % (Manual) Lymphocytes % (Manual) Monocytes % (Manual) Eosinophils % (Manual) Basophils % (Manual) Nucleated RBC % Seg Neutrophils # Seg Neutrophils # Man Lymphocytes # (Manual) Monocytes # (Manual) Eosinophils # (Manual) Basophils # (Manual) PT INR Fibrinogen dRVVT Confirm Interp Factor V Activity POC ABG pH 7.561 H POC ABG pCO2 24.4 L POC ABG pO2 77 L ABG pO2 ABG HCO3 ABG Base Excess ABG Hemoglobin Oxyhemoglobin Sodium 148 H Potassium Chloride Carbon Dioxide BUN 104 H Creatinine 3.0 H Glucose 149 H POC Glucose Lactic Acid Calcium Phosphorus Magnesium Direct Bilirubin AST ALT Alkaline Phosphatase 138 H Lactate Dehydrogenase Troponin T C-Reactive Protein Total Protein 6.2 L Albumin 1.5 L Prealbumin Triglycerides Cholesterol LDL Cholesterol Direct HDL Cholesterol PTH Intact Urine pH Urine WBC (Auto) Urine Creatinine Urine Total Protein Fluid Total Protein Vancomycin Trough Rheumatoid Factor Complement C4 Miscellaneous Test Crossmatch 10/17/16 10/17/16 10/17/16 06:02 12:17 17:14 WBC RBC Hgb Hct MCV MCH MCHC RDW Plt Count Lymph % (Auto) [place] % (Auto) Lymph # [place] # Baso # Seg Neutrophils % Seg Neuts % (Manual) Lymphocytes % (Manual) Monocytes % (Manual) Eosinophils % (Manual) Basophils % (Manual) Nucleated RBC % Seg Neutrophils # Seg Neutrophils # Man Lymphocytes # (Manual) Monocytes # (Manual) Eosinophils # (Manual) Basophils # (Manual) PT INR Fibrinogen dRVVT Confirm Interp Factor V Activity POC ABG pH POC ABG pCO2 POC ABG pO2 ABG pO2 ABG HCO3 ABG Base Excess ABG Hemoglobin Oxyhemoglobin Sodium Potassium Chloride Carbon Dioxide BUN Creatinine Glucose POC Glucose 170 H 167 H 126 H Lactic Acid Calcium Phosphorus Magnesium Direct Bilirubin AST ALT Alkaline Phosphatase Lactate Dehydrogenase Troponin T C-Reactive Protein Total Protein Albumin Prealbumin Triglycerides Cholesterol LDL Cholesterol Direct HDL Cholesterol PTH Intact Urine pH Urine WBC (Auto) Urine Creatinine Urine Total Protein Fluid Total Protein Vancomycin Trough Rheumatoid Factor Complement C4 Miscellaneous Test Crossmatch 10/17/16 10/18/16 10/18/16 23:17 04:00 04:00 WBC 20.7 H RBC 2.47 L Hgb 7.4 L Hct 22.9 L MCV MCH MCHC RDW 17.5 H Plt Count Lymph % (Auto) [place] % (Auto) Lymph # [place] # Baso # Seg Neutrophils % Seg Neuts % (Manual) Lymphocytes % (Manual) Monocytes % (Manual) Eosinophils % (Manual) Basophils % (Manual) Nucleated RBC % Seg Neutrophils # Seg Neutrophils # Man Lymphocytes # (Manual) Monocytes # (Manual) Eosinophils # (Manual) Basophils # (Manual) PT INR Fibrinogen dRVVT Confirm Interp Factor V Activity POC ABG pH POC ABG pCO2 POC ABG pO2 ABG pO2 ABG HCO3 ABG Base Excess ABG Hemoglobin Oxyhemoglobin Sodium 149 H Potassium Chloride 107.9 H Carbon Dioxide 20 L BUN 117 H Creatinine 3.2 H Glucose 119 H POC Glucose 121 H Lactic Acid Calcium Phosphorus Magnesium Direct Bilirubin AST ALT Alkaline Phosphatase Lactate Dehydrogenase Troponin T C-Reactive Protein Total Protein Albumin Prealbumin Triglycerides Cholesterol LDL Cholesterol Direct HDL Cholesterol PTH Intact Urine pH Urine WBC (Auto) Urine Creatinine Urine Total Protein Fluid Total Protein Vancomycin Trough Rheumatoid Factor Complement C4 Miscellaneous Test Crossmatch 10/18/16 10/18/16 10/18/16 05:23 10:46 17:30 WBC RBC Hgb Hct MCV MCH MCHC RDW Plt Count Lymph % (Auto) [place] % (Auto) Lymph # [place] # Baso # Seg Neutrophils % Seg Neuts % (Manual) Lymphocytes % (Manual) Monocytes % (Manual) Eosinophils % (Manual) Basophils % (Manual) Nucleated RBC % Seg Neutrophils # Seg Neutrophils # Man Lymphocytes # (Manual) Monocytes # (Manual) Eosinophils # (Manual) Basophils # (Manual) PT INR Fibrinogen dRVVT Confirm Interp Factor V Activity POC ABG pH POC ABG pCO2 POC ABG pO2 ABG pO2 ABG HCO3 ABG Base Excess ABG Hemoglobin Oxyhemoglobin Sodium Potassium Chloride Carbon Dioxide BUN Creatinine Glucose POC Glucose 119 H 155 H 124 H Lactic Acid Calcium Phosphorus Magnesium Direct Bilirubin AST ALT Alkaline Phosphatase Lactate Dehydrogenase Troponin T C-Reactive Protein Total Protein Albumin Prealbumin Triglycerides Cholesterol LDL Cholesterol Direct HDL Cholesterol PTH Intact Urine pH Urine WBC (Auto) Urine Creatinine Urine Total Protein Fluid Total Protein Vancomycin Trough Rheumatoid Factor Complement C4 Miscellaneous Test Crossmatch 10/19/16 10/19/16 10/19/16 04:00 04:00 05:25 WBC 17.4 H RBC 2.54 L Hgb 7.7 L Hct 23.6 L MCV MCH MCHC RDW 17.3 H Plt Count Lymph % (Auto) [place] % (Auto) Lymph # [place] # Baso # Seg Neutrophils % Seg Neuts % (Manual) Lymphocytes % (Manual) Monocytes % (Manual) Eosinophils % (Manual) Basophils % (Manual) Nucleated RBC % Seg Neutrophils # Seg Neutrophils # Man Lymphocytes # (Manual) Monocytes # (Manual) Eosinophils # (Manual) Basophils # (Manual) PT INR Fibrinogen dRVVT Confirm Interp Factor V Activity POC ABG pH POC ABG pCO2 POC ABG pO2 ABG pO2 ABG HCO3 ABG Base Excess ABG Hemoglobin Oxyhemoglobin Sodium Potassium Chloride Carbon Dioxide BUN 72 H Creatinine 2.1 H Glucose 116 H POC Glucose 119 H Lactic Acid Calcium Phosphorus Magnesium Direct Bilirubin AST ALT Alkaline Phosphatase Lactate Dehydrogenase Troponin T C-Reactive Protein Total Protein Albumin Prealbumin Triglycerides Cholesterol LDL Cholesterol Direct HDL Cholesterol PTH Intact Urine pH Urine WBC (Auto) Urine Creatinine Urine Total Protein Fluid Total Protein Vancomycin Trough Rheumatoid Factor Complement C4 Miscellaneous Test Crossmatch 10/19/16 10/19/16 10/20/16 11:46 23:59 06:00 WBC RBC Hgb Hct MCV MCH MCHC RDW Plt Count Lymph % (Auto) [place] % (Auto) Lymph # [place] # Baso # Seg Neutrophils % Seg Neuts % (Manual) Lymphocytes % (Manual) Monocytes % (Manual) Eosinophils % (Manual) Basophils % (Manual) Nucleated RBC % Seg Neutrophils # Seg Neutrophils # Man Lymphocytes # (Manual) Monocytes # (Manual) Eosinophils # (Manual) Basophils # (Manual) PT INR Fibrinogen dRVVT Confirm Interp Factor V Activity POC ABG pH POC ABG pCO2 POC ABG pO2 ABG pO2 ABG HCO3 ABG Base Excess ABG Hemoglobin Oxyhemoglobin Sodium Potassium Chloride Carbon Dioxide 17 L BUN 94 H Creatinine 2.7 H Glucose POC Glucose 116 H 117 H Lactic Acid Calcium Phosphorus Magnesium Direct Bilirubin AST ALT Alkaline Phosphatase Lactate Dehydrogenase Troponin T C-Reactive Protein Total Protein Albumin Prealbumin Triglycerides Cholesterol LDL Cholesterol Direct HDL Cholesterol PTH Intact Urine pH Urine WBC (Auto) Urine Creatinine Urine Total Protein Fluid Total Protein Vancomycin Trough Rheumatoid Factor Complement C4 Miscellaneous Test Crossmatch 10/20/16 10/20/16 10/20/16 06:00 11:49 16:00 WBC 19.7 H RBC 2.51 L Hgb 7.7 L Hct 23.5 L MCV MCH MCHC RDW 17.5 H Plt Count Lymph % (Auto) [place] % (Auto) Lymph # [place] # Baso # Seg Neutrophils % Seg Neuts % (Manual) Lymphocytes % (Manual) Monocytes % (Manual) Eosinophils % (Manual) Basophils % (Manual) Nucleated RBC % Seg Neutrophils # Seg Neutrophils # Man Lymphocytes # (Manual) Monocytes # (Manual) Eosinophils # (Manual) Basophils # (Manual) PT INR Fibrinogen dRVVT Confirm Interp Factor V Activity POC ABG pH POC ABG pCO2 POC ABG pO2 ABG pO2 ABG HCO3 ABG Base Excess ABG Hemoglobin Oxyhemoglobin Sodium Potassium Chloride Carbon Dioxide BUN Creatinine Glucose POC Glucose 117 H Lactic Acid Calcium Phosphorus Magnesium Direct Bilirubin AST ALT Alkaline Phosphatase Lactate Dehydrogenase Troponin T C-Reactive Protein Total Protein Albumin Prealbumin Triglycerides Cholesterol LDL Cholesterol Direct HDL Cholesterol PTH Intact Urine pH Urine WBC (Auto) Urine Creatinine Urine Total Protein Fluid Total Protein Vancomycin Trough Rheumatoid Factor Complement C4 Miscellaneous Test Flexitest 1 H Crossmatch 10/20/16 10/20/16 10/21/16 18:36 23:39 04:00 WBC RBC Hgb Hct MCV MCH MCHC RDW Plt Count Lymph % (Auto) [place] % (Auto) Lymph # [place] # Baso # Seg Neutrophils % Seg Neuts % (Manual) Lymphocytes % (Manual) Monocytes % (Manual) Eosinophils % (Manual) Basophils % (Manual) Nucleated RBC % Seg Neutrophils # Seg Neutrophils # Man Lymphocytes # (Manual) Monocytes # (Manual) Eosinophils # (Manual) Basophils # (Manual) PT INR Fibrinogen dRVVT Confirm Interp Factor V Activity POC ABG pH POC ABG pCO2 POC ABG pO2 ABG pO2 ABG HCO3 ABG Base Excess ABG Hemoglobin Oxyhemoglobin Sodium Potassium 5.4 H D Chloride Carbon Dioxide 15 L BUN 110 H Creatinine 3.0 H Glucose POC Glucose 127 H 114 H Lactic Acid Calcium Phosphorus Magnesium Direct Bilirubin AST ALT Alkaline Phosphatase Lactate Dehydrogenase Troponin T C-Reactive Protein Total Protein Albumin Prealbumin Triglycerides Cholesterol LDL Cholesterol Direct HDL Cholesterol PTH Intact Urine pH Urine WBC (Auto) Urine Creatinine Urine Total Protein Fluid Total Protein Vancomycin Trough Rheumatoid Factor Complement C4 Miscellaneous Test Crossmatch 10/21/16 10/21/16 10/22/16 05:54 23:46 05:18 WBC RBC Hgb Hct MCV MCH MCHC RDW Plt Count Lymph % (Auto) [place] % (Auto) Lymph # [place] # Baso # Seg Neutrophils % Seg Neuts % (Manual) Lymphocytes % (Manual) Monocytes % (Manual) Eosinophils % (Manual) Basophils % (Manual) Nucleated RBC % Seg Neutrophils # Seg Neutrophils # Man Lymphocytes # (Manual) Monocytes # (Manual) Eosinophils # (Manual) Basophils # (Manual) PT INR Fibrinogen dRVVT Confirm Interp Factor V Activity POC ABG pH POC ABG pCO2 POC ABG pO2 ABG pO2 ABG HCO3 ABG Base Excess ABG Hemoglobin Oxyhemoglobin Sodium Potassium Chloride Carbon Dioxide BUN Creatinine Glucose POC Glucose 119 H 108 H 109 H Lactic Acid Calcium Phosphorus Magnesium Direct Bilirubin AST ALT Alkaline Phosphatase Lactate Dehydrogenase Troponin T C-Reactive Protein Total Protein Albumin Prealbumin Triglycerides Cholesterol LDL Cholesterol Direct HDL Cholesterol PTH Intact Urine pH Urine WBC (Auto) Urine Creatinine Urine Total Protein Fluid Total Protein Vancomycin Trough Rheumatoid Factor Complement C4 Miscellaneous Test Crossmatch 10/22/16 10/22/16 10/22/16 06:40 06:40 06:40 WBC 14.0 H RBC 2.03 L Hgb 7.0 L Hct 20.5 L MCV 98 H MCH 34 H MCHC 35 H RDW 17.8 H Plt Count Lymph % (Auto) [place] % (Auto) 9.9 H Lymph # [place] # 1.4 H Baso # 0.2 H Seg Neutrophils % 72.0 H Seg Neuts % (Manual) Lymphocytes % (Manual) Monocytes % (Manual) Eosinophils % (Manual) Basophils % (Manual) Nucleated RBC % Seg Neutrophils # 10.0 H Seg Neutrophils # Man Lymphocytes # (Manual) Monocytes # (Manual) Eosinophils # (Manual) Basophils # (Manual) PT INR Fibrinogen dRVVT Confirm Interp Factor V Activity POC ABG pH POC ABG pCO2 POC ABG pO2 ABG pO2 ABG HCO3 ABG Base Excess ABG Hemoglobin Oxyhemoglobin Sodium 130 L D Potassium Chloride 92.4 L Carbon Dioxide 20 L BUN 50 H Creatinine 1.6 H Glucose 589 H* POC Glucose Lactic Acid Calcium 7.8 L D Phosphorus Magnesium 1.60 L Direct Bilirubin AST ALT Alkaline Phosphatase Lactate Dehydrogenase Troponin T C-Reactive Protein Total Protein Albumin Prealbumin Triglycerides Cholesterol LDL Cholesterol Direct HDL Cholesterol PTH Intact Urine pH Urine WBC (Auto) Urine Creatinine Urine Total Protein Fluid Total Protein Vancomycin Trough Rheumatoid Factor Complement C4 Miscellaneous Test Crossmatch 10/22/16 10/22/16 10/22/16 11:39 16:44 23:36 WBC RBC Hgb Hct MCV MCH MCHC RDW Plt Count Lymph % (Auto) [place] % (Auto) Lymph # [place] # Baso # Seg Neutrophils % Seg Neuts % (Manual) Lymphocytes % (Manual) Monocytes % (Manual) Eosinophils % (Manual) Basophils % (Manual) Nucleated RBC % Seg Neutrophils # Seg Neutrophils # Man Lymphocytes # (Manual) Monocytes # (Manual) Eosinophils # (Manual) Basophils # (Manual) PT INR Fibrinogen dRVVT Confirm Interp Factor V Activity POC ABG pH POC ABG pCO2 POC ABG pO2 ABG pO2 ABG HCO3 ABG Base Excess ABG Hemoglobin Oxyhemoglobin Sodium Potassium Chloride Carbon Dioxide BUN Creatinine Glucose POC Glucose 142 H 163 H 123 H Lactic Acid Calcium Phosphorus Magnesium Direct Bilirubin AST ALT Alkaline Phosphatase Lactate Dehydrogenase Troponin T C-Reactive Protein Total Protein Albumin Prealbumin Triglycerides Cholesterol LDL Cholesterol Direct HDL Cholesterol PTH Intact Urine pH Urine WBC (Auto) Urine Creatinine Urine Total Protein Fluid Total Protein Vancomycin Trough Rheumatoid Factor Complement C4 Miscellaneous Test Crossmatch 10/23/16 10/23/16 10/23/16 04:58 06:00 12:12 WBC RBC Hgb Hct MCV MCH MCHC RDW Plt Count Lymph % (Auto) [place] % (Auto) Lymph # [place] # Baso # Seg Neutrophils % Seg Neuts % (Manual) Lymphocytes % (Manual) Monocytes % (Manual) Eosinophils % (Manual) Basophils % (Manual) Nucleated RBC % Seg Neutrophils # Seg Neutrophils # Man Lymphocytes # (Manual) Monocytes # (Manual) Eosinophils # (Manual) Basophils # (Manual) PT INR Fibrinogen dRVVT Confirm Interp Factor V Activity POC ABG pH POC ABG pCO2 POC ABG pO2 ABG pO2 ABG HCO3 ABG Base Excess ABG Hemoglobin Oxyhemoglobin Sodium 133 L Potassium 3.5 L Chloride 96.1 L Carbon Dioxide 18 L BUN 76 H Creatinine 2.1 H Glucose POC Glucose 133 H 138 H Lactic Acid Calcium 8.3 L Phosphorus Magnesium Direct Bilirubin AST ALT Alkaline Phosphatase Lactate Dehydrogenase Troponin T C-Reactive Protein Total Protein Albumin Prealbumin Triglycerides Cholesterol LDL Cholesterol Direct HDL Cholesterol PTH Intact Urine pH Urine WBC (Auto) Urine Creatinine Urine Total Protein Fluid Total Protein Vancomycin Trough Rheumatoid Factor Complement C4 Miscellaneous Test Crossmatch 10/23/16 10/23/16 10/24/16 16:53 23:37 04:00 WBC RBC Hgb Hct MCV MCH MCHC RDW Plt Count Lymph % (Auto) [place] % (Auto) Lymph # [place] # Baso # Seg Neutrophils % Seg Neuts % (Manual) Lymphocytes % (Manual) Monocytes % (Manual) Eosinophils % (Manual) Basophils % (Manual) Nucleated RBC % Seg Neutrophils # Seg Neutrophils # Man Lymphocytes # (Manual) Monocytes # (Manual) Eosinophils # (Manual) Basophils # (Manual) PT INR Fibrinogen dRVVT Confirm Interp Factor V Activity POC ABG pH POC ABG pCO2 POC ABG pO2 ABG pO2 ABG HCO3 ABG Base Excess ABG Hemoglobin Oxyhemoglobin Sodium 131 L Potassium Chloride 94.5 L Carbon Dioxide 19 L BUN 97 H Creatinine 2.6 H Glucose 110 H POC Glucose 125 H 123 H Lactic Acid Calcium 8.3 L Phosphorus Magnesium Direct Bilirubin AST ALT Alkaline Phosphatase Lactate Dehydrogenase Troponin T C-Reactive Protein Total Protein Albumin Prealbumin Triglycerides Cholesterol LDL Cholesterol Direct HDL Cholesterol PTH Intact Urine pH Urine WBC (Auto) Urine Creatinine Urine Total Protein Fluid Total Protein Vancomycin Trough Rheumatoid Factor Complement C4 Miscellaneous Test Crossmatch 10/24/16 10/24/16 10/24/16 07:49 11:39 17:52 WBC RBC Hgb 6.0 L Hct 19.7 L* MCV MCH MCHC RDW Plt Count Lymph % (Auto) [place] % (Auto) Lymph # [place] # Baso # Seg Neutrophils % Seg Neuts % (Manual) Lymphocytes % (Manual) Monocytes % (Manual) Eosinophils % (Manual) Basophils % (Manual) Nucleated RBC % Seg Neutrophils # Seg Neutrophils # Man Lymphocytes # (Manual) Monocytes # (Manual) Eosinophils # (Manual) Basophils # (Manual) PT INR Fibrinogen dRVVT Confirm Interp Factor V Activity POC ABG pH POC ABG pCO2 POC ABG pO2 ABG pO2 ABG HCO3 ABG Base Excess ABG Hemoglobin Oxyhemoglobin Sodium Potassium Chloride Carbon Dioxide BUN Creatinine Glucose POC Glucose 106 H 158 H Lactic Acid Calcium Phosphorus Magnesium Direct Bilirubin AST ALT Alkaline Phosphatase Lactate Dehydrogenase Troponin T C-Reactive Protein Total Protein Albumin Prealbumin Triglycerides Cholesterol LDL Cholesterol Direct HDL Cholesterol PTH Intact Urine pH Urine WBC (Auto) Urine Creatinine Urine Total Protein Fluid Total Protein Vancomycin Trough Rheumatoid Factor Complement C4 Miscellaneous Test Crossmatch 10/24/16 10/24/16 10/24/16 20:00 22:27 Unknown WBC RBC Hgb 9.4 L D Hct 27.5 L D MCV MCH MCHC RDW Plt Count Lymph % (Auto) [place] % (Auto) Lymph # [place] # Baso # Seg Neutrophils % Seg Neuts % (Manual) Lymphocytes % (Manual) Monocytes % (Manual) Eosinophils % (Manual) Basophils % (Manual) Nucleated RBC % Seg Neutrophils # Seg Neutrophils # Man Lymphocytes # (Manual) Monocytes # (Manual) Eosinophils # (Manual) Basophils # (Manual) PT INR Fibrinogen dRVVT Confirm Interp Factor V Activity POC ABG pH POC ABG pCO2 POC ABG pO2 ABG pO2 ABG HCO3 ABG Base Excess ABG Hemoglobin Oxyhemoglobin Sodium Potassium Chloride Carbon Dioxide BUN Creatinine Glucose POC Glucose 125 H Lactic Acid Calcium Phosphorus Magnesium Direct Bilirubin AST ALT Alkaline Phosphatase Lactate Dehydrogenase Troponin T C-Reactive Protein Total Protein Albumin Prealbumin Triglycerides Cholesterol LDL Cholesterol Direct HDL Cholesterol PTH Intact Urine pH Urine WBC (Auto) Urine Creatinine Urine Total Protein Fluid Total Protein Vancomycin Trough Rheumatoid Factor Complement C4 Miscellaneous Test Crossmatch See Detail 10/25/16 10/25/16 10/25/16 04:00 04:00 04:00 WBC 14.2 H RBC 2.98 L Hgb 9.0 L Hct 26.2 L MCV MCH MCHC RDW 16.6 H Plt Count Lymph % (Auto) [place] % (Auto) 10.7 H Lymph # [place] # 1.5 H Baso # Seg Neutrophils % 73.6 H Seg Neuts % (Manual) Lymphocytes % (Manual) Monocytes % (Manual) Eosinophils % (Manual) Basophils % (Manual) Nucleated RBC % Seg Neutrophils # 10.5 H Seg Neutrophils # Man Lymphocytes # (Manual) Monocytes # (Manual) Eosinophils # (Manual) Basophils # (Manual) PT INR Fibrinogen dRVVT Confirm Interp Factor V Activity POC ABG pH POC ABG pCO2 POC ABG pO2 ABG pO2 ABG HCO3 ABG Base Excess ABG Hemoglobin Oxyhemoglobin Sodium 132 L Potassium Chloride 94.7 L Carbon Dioxide BUN 51 H Creatinine 1.6 H Glucose 130 H POC Glucose Lactic Acid Calcium 8.3 L Phosphorus 1.60 L D Magnesium Direct Bilirubin AST ALT Alkaline Phosphatase Lactate Dehydrogenase Troponin T C-Reactive Protein Total Protein Albumin Prealbumin Triglycerides Cholesterol LDL Cholesterol Direct HDL Cholesterol PTH Intact Urine pH Urine WBC (Auto) Urine Creatinine Urine Total Protein Fluid Total Protein Vancomycin Trough Rheumatoid Factor Complement C4 Miscellaneous Test Crossmatch 10/25/16 10/25/16 10/25/16 04:32 11:48 17:22 WBC RBC Hgb Hct MCV MCH MCHC RDW Plt Count Lymph % (Auto) [place] % (Auto) Lymph # [place] # Baso # Seg Neutrophils % Seg Neuts % (Manual) Lymphocytes % (Manual) Monocytes % (Manual) Eosinophils % (Manual) Basophils % (Manual) Nucleated RBC % Seg Neutrophils # Seg Neutrophils # Man Lymphocytes # (Manual) Monocytes # (Manual) Eosinophils # (Manual) Basophils # (Manual) PT INR Fibrinogen dRVVT Confirm Interp Factor V Activity POC ABG pH POC ABG pCO2 POC ABG pO2 ABG pO2 ABG HCO3 ABG Base Excess ABG Hemoglobin Oxyhemoglobin Sodium Potassium Chloride Carbon Dioxide BUN Creatinine Glucose POC Glucose 124 H 171 H 120 H Lactic Acid Calcium Phosphorus Magnesium Direct Bilirubin AST ALT Alkaline Phosphatase Lactate Dehydrogenase Troponin T C-Reactive Protein Total Protein Albumin Prealbumin Triglycerides Cholesterol LDL Cholesterol Direct HDL Cholesterol PTH Intact Urine pH Urine WBC (Auto) Urine Creatinine Urine Total Protein Fluid Total Protein Vancomycin Trough Rheumatoid Factor Complement C4 Miscellaneous Test Crossmatch 10/26/16 10/26/16 10/26/16 04:54 07:06 07:06 WBC 16.9 H RBC 3.06 L Hgb 9.1 L Hct 26.9 L MCV MCH MCHC RDW 16.9 H Plt Count Lymph % (Auto) [place] % (Auto) Lymph # [place] # Baso # Seg Neutrophils % Seg Neuts % (Manual) 71.0 H Lymphocytes % (Manual) 5.0 L Monocytes % (Manual) 12.0 H Eosinophils % (Manual) Basophils % (Manual) Nucleated RBC % Seg Neutrophils # Seg Neutrophils # Man 12.0 H Lymphocytes # (Manual) 0.8 L Monocytes # (Manual) 2.0 H Eosinophils # (Manual) Basophils # (Manual) PT INR Fibrinogen dRVVT Confirm Interp Factor V Activity POC ABG pH POC ABG pCO2 POC ABG pO2 ABG pO2 ABG HCO3 ABG Base Excess ABG Hemoglobin Oxyhemoglobin Sodium 135 L Potassium Chloride 97.1 L Carbon Dioxide BUN 73 H Creatinine 2.2 H Glucose 117 H POC Glucose 123 H Lactic Acid Calcium Phosphorus 1.70 L Magnesium Direct Bilirubin AST ALT Alkaline Phosphatase Lactate Dehydrogenase Troponin T C-Reactive Protein Total Protein Albumin Prealbumin Triglycerides Cholesterol LDL Cholesterol Direct HDL Cholesterol PTH Intact Urine pH Urine WBC (Auto) Urine Creatinine Urine Total Protein Fluid Total Protein Vancomycin Trough Rheumatoid Factor Complement C4 Miscellaneous Test Crossmatch 10/26/16 10/26/16 10/26/16 12:12 17:29 23:42 WBC RBC Hgb Hct MCV MCH MCHC RDW Plt Count Lymph % (Auto) [place] % (Auto) Lymph # [place] # Baso # Seg Neutrophils % Seg Neuts % (Manual) Lymphocytes % (Manual) Monocytes % (Manual) Eosinophils % (Manual) Basophils % (Manual) Nucleated RBC % Seg Neutrophils # Seg Neutrophils # Man Lymphocytes # (Manual) Monocytes # (Manual) Eosinophils # (Manual) Basophils # (Manual) PT INR Fibrinogen dRVVT Confirm Interp Factor V Activity POC ABG pH POC ABG pCO2 POC ABG pO2 ABG pO2 ABG HCO3 ABG Base Excess ABG Hemoglobin Oxyhemoglobin Sodium Potassium Chloride Carbon Dioxide BUN Creatinine Glucose POC Glucose 126 H 161 H 118 H Lactic Acid Calcium Phosphorus Magnesium Direct Bilirubin AST ALT Alkaline Phosphatase Lactate Dehydrogenase Troponin T C-Reactive Protein Total Protein Albumin Prealbumin Triglycerides Cholesterol LDL Cholesterol Direct HDL Cholesterol PTH Intact Urine pH Urine WBC (Auto) Urine Creatinine Urine Total Protein Fluid Total Protein Vancomycin Trough Rheumatoid Factor Complement C4 Miscellaneous Test Crossmatch 10/27/16 10/27/16 10/27/16 05:03 06:30 06:30 WBC 13.9 H RBC 3.09 L Hgb 9.2 L Hct 27.5 L MCV MCH MCHC RDW 17.0 H Plt Count Lymph % (Auto) [place] % (Auto) Lymph # [place] # Baso # Seg Neutrophils % Seg Neuts % (Manual) 78.0 H Lymphocytes % (Manual) Monocytes % (Manual) Eosinophils % (Manual) Basophils % (Manual) Nucleated RBC % 2.0 H Seg Neutrophils # Seg Neutrophils # Man 10.8 H Lymphocytes # (Manual) Monocytes # (Manual) 1.0 H Eosinophils # (Manual) Basophils # (Manual) PT INR Fibrinogen dRVVT Confirm Interp Factor V Activity POC ABG pH POC ABG pCO2 POC ABG pO2 ABG pO2 ABG HCO3 ABG Base Excess ABG Hemoglobin Oxyhemoglobin Sodium Potassium Chloride Carbon Dioxide BUN 40 H Creatinine 1.5 H Glucose 135 H POC Glucose 107 H Lactic Acid Calcium 8.3 L Phosphorus 1.30 L D Magnesium Direct Bilirubin AST ALT Alkaline Phosphatase Lactate Dehydrogenase Troponin T C-Reactive Protein Total Protein Albumin Prealbumin Triglycerides Cholesterol LDL Cholesterol Direct HDL Cholesterol PTH Intact Urine pH Urine WBC (Auto) Urine Creatinine Urine Total Protein Fluid Total Protein Vancomycin Trough Rheumatoid Factor Complement C4 Miscellaneous Test Crossmatch 0910/27/16 10/27/16 13:27 18:07 23:40 WBC RBC Hgb Hct MCV MCH MCHC RDW Plt Count Lymph % (Auto) [place] % (Auto) Lymph # [place] # Baso # Seg Neutrophils % Seg Neuts % (Manual) Lymphocytes % (Manual) Monocytes % (Manual) Eosinophils % (Manual) Basophils % (Manual) Nucleated RBC % Seg Neutrophils # Seg Neutrophils # Man Lymphocytes # (Manual) Monocytes # (Manual) Eosinophils # (Manual) Basophils # (Manual) PT INR Fibrinogen dRVVT Confirm Interp Factor V Activity POC ABG pH POC ABG pCO2 POC ABG pO2 ABG pO2 ABG HCO3 ABG Base Excess ABG Hemoglobin Oxyhemoglobin Sodium Potassium Chloride Carbon Dioxide BUN Creatinine Glucose POC Glucose 117 H 121 H 118 H Lactic Acid Calcium Phosphorus Magnesium Direct Bilirubin AST ALT Alkaline Phosphatase Lactate Dehydrogenase Troponin T C-Reactive Protein Total Protein Albumin Prealbumin Triglycerides Cholesterol LDL Cholesterol Direct HDL Cholesterol PTH Intact Urine pH Urine WBC (Auto) Urine Creatinine Urine Total Protein Fluid Total Protein Vancomycin Trough Rheumatoid Factor Complement C4 Miscellaneous Test Crossmatch 10/28/16 10/28/16 10/28/16 05:48 06:45 06:45 WBC 14.7 H RBC 3.05 L Hgb 9.0 L Hct 26.9 L MCV MCH MCHC RDW 16.8 H Plt Count Lymph % (Auto) 8.2 L [place] % (Auto) 8.4 H Lymph # [place] # 1.2 H Baso # Seg Neutrophils % 81.9 H Seg Neuts % (Manual) Lymphocytes % (Manual) Monocytes % (Manual) Eosinophils % (Manual) Basophils % (Manual) Nucleated RBC % Seg Neutrophils # 12.1 H Seg Neutrophils # Man Lymphocytes # (Manual) Monocytes # (Manual) Eosinophils # (Manual) Basophils # (Manual) PT INR Fibrinogen dRVVT Confirm Interp Factor V Activity POC ABG pH POC ABG pCO2 POC ABG pO2 ABG pO2 ABG HCO3 ABG Base Excess ABG Hemoglobin Oxyhemoglobin Sodium Potassium Chloride Carbon Dioxide BUN 60 H Creatinine 1.9 H Glucose 120 H POC Glucose 114 H Lactic Acid Calcium Phosphorus Magnesium Direct Bilirubin AST ALT Alkaline Phosphatase Lactate Dehydrogenase Troponin T C-Reactive Protein Total Protein Albumin Prealbumin Triglycerides Cholesterol LDL Cholesterol Direct HDL Cholesterol PTH Intact Urine pH Urine WBC (Auto) Urine Creatinine Urine Total Protein Fluid Total Protein Vancomycin Trough Rheumatoid Factor Complement C4 Miscellaneous Test Crossmatch 10/28/16 10/28/16 10/29/16 17:08 23:50 05:10 WBC RBC Hgb Hct MCV MCH MCHC RDW Plt Count Lymph % (Auto) [place] % (Auto) Lymph # [place] # Baso # Seg Neutrophils % Seg Neuts % (Manual) Lymphocytes % (Manual) Monocytes % (Manual) Eosinophils % (Manual) Basophils % (Manual) Nucleated RBC % Seg Neutrophils # Seg Neutrophils # Man Lymphocytes # (Manual) Monocytes # (Manual) Eosinophils # (Manual) Basophils # (Manual) PT INR Fibrinogen dRVVT Confirm Interp Factor V Activity POC ABG pH POC ABG pCO2 POC ABG pO2 ABG pO2 ABG HCO3 ABG Base Excess ABG Hemoglobin Oxyhemoglobin Sodium Potassium Chloride Carbon Dioxide BUN Creatinine Glucose POC Glucose 109 H 110 H 124 H Lactic Acid Calcium Phosphorus Magnesium Direct Bilirubin AST ALT Alkaline Phosphatase Lactate Dehydrogenase Troponin T C-Reactive Protein Total Protein Albumin Prealbumin Triglycerides Cholesterol LDL Cholesterol Direct HDL Cholesterol PTH Intact Urine pH Urine WBC (Auto) Urine Creatinine Urine Total Protein Fluid Total Protein Vancomycin Trough Rheumatoid Factor Complement C4 Miscellaneous Test Crossmatch 10/29/16 10/29/16 10/29/16 07:45 07:45 12:19 WBC 14.7 H RBC 3.15 L Hgb 9.3 L Hct 28.9 L MCV MCH MCHC RDW 17.0 H Plt Count Lymph % (Auto) 11.9 L [place] % (Auto) 8.6 H Lymph # [place] # 1.3 H Baso # Seg Neutrophils % 78.1 H Seg Neuts % (Manual) Lymphocytes % (Manual) Monocytes % (Manual) Eosinophils % (Manual) Basophils % (Manual) Nucleated RBC % Seg Neutrophils # 11.4 H Seg Neutrophils # Man Lymphocytes # (Manual) Monocytes # (Manual) Eosinophils # (Manual) Basophils # (Manual) PT INR Fibrinogen dRVVT Confirm Interp Factor V Activity POC ABG pH POC ABG pCO2 POC ABG pO2 ABG pO2 ABG HCO3 ABG Base Excess ABG Hemoglobin Oxyhemoglobin Sodium Potassium 5.1 H Chloride Carbon Dioxide 19 L BUN 78 H Creatinine 2.2 H Glucose 116 H POC Glucose 118 H Lactic Acid Calcium Phosphorus Magnesium Direct Bilirubin AST ALT Alkaline Phosphatase Lactate Dehydrogenase Troponin T C-Reactive Protein Total Protein Albumin Prealbumin Triglycerides Cholesterol LDL Cholesterol Direct HDL Cholesterol PTH Intact Urine pH Urine WBC (Auto) Urine Creatinine Urine Total Protein Fluid Total Protein Vancomycin Trough Rheumatoid Factor Complement C4 Miscellaneous Test Crossmatch 10/29/16 10/30/16 10/30/16 17:49 01:52 03:28 WBC RBC Hgb Hct MCV MCH MCHC RDW Plt Count Lymph % (Auto) [place] % (Auto) Lymph # [place] # Baso # Seg Neutrophils % Seg Neuts % (Manual) Lymphocytes % (Manual) Monocytes % (Manual) Eosinophils % (Manual) Basophils % (Manual) Nucleated RBC % Seg Neutrophils # Seg Neutrophils # Man Lymphocytes # (Manual) Monocytes # (Manual) Eosinophils # (Manual) Basophils # (Manual) PT INR Fibrinogen dRVVT Confirm Interp Factor V Activity POC ABG pH POC ABG pCO2 POC ABG pO2 ABG pO2 ABG HCO3 ABG Base Excess ABG Hemoglobin Oxyhemoglobin Sodium Potassium 5.4 H Chloride 97.5 L Carbon Dioxide 19 L BUN 90 H Creatinine 2.5 H Glucose POC Glucose 120 H 129 H Lactic Acid Calcium Phosphorus 5.20 H Magnesium Direct Bilirubin AST ALT Alkaline Phosphatase Lactate Dehydrogenase Troponin T C-Reactive Protein Total Protein Albumin Prealbumin Triglycerides Cholesterol LDL Cholesterol Direct HDL Cholesterol PTH Intact Urine pH Urine WBC (Auto) Urine Creatinine Urine Total Protein Fluid Total Protein Vancomycin Trough Rheumatoid Factor Complement C4 Miscellaneous Test Crossmatch 10/30/16 10/30/16 10/30/16 03:28 08:19 08:19 WBC 11.6 H 15.9 H RBC 2.75 L 2.82 L Hgb 7.9 L 8.3 L Hct 24.2 L 25.2 L MCV MCH MCHC RDW 16.7 H 17.2 H Plt Count Lymph % (Auto) [place] % (Auto) 9.8 H Lymph # [place] # 1.1 H Baso # Seg Neutrophils % 74.2 H Seg Neuts % (Manual) Lymphocytes % (Manual) Monocytes % (Manual) Eosinophils % (Manual) Basophils % (Manual) Nucleated RBC % Seg Neutrophils # 8.6 H Seg Neutrophils # Man Lymphocytes # (Manual) Monocytes # (Manual) Eosinophils # (Manual) Basophils # (Manual) PT INR Fibrinogen dRVVT Confirm Interp Factor V Activity POC ABG pH POC ABG pCO2 POC ABG pO2 ABG pO2 ABG HCO3 ABG Base Excess ABG Hemoglobin Oxyhemoglobin Sodium Potassium 5.3 H Chloride 97.4 L Carbon Dioxide 19 L BUN 93 H Creatinine 2.6 H Glucose POC Glucose Lactic Acid Calcium Phosphorus Magnesium Direct Bilirubin AST ALT Alkaline Phosphatase Lactate Dehydrogenase Troponin T C-Reactive Protein Total Protein Albumin Prealbumin Triglycerides Cholesterol LDL Cholesterol Direct HDL Cholesterol PTH Intact Urine pH Urine WBC (Auto) Urine Creatinine Urine Total Protein Fluid Total Protein Vancomycin Trough Rheumatoid Factor Complement C4 Miscellaneous Test Crossmatch 10/30/16 10/30/16 10/31/16 17:11 23:56 00:40 WBC RBC Hgb Hct MCV MCH MCHC RDW Plt Count Lymph % (Auto) [place] % (Auto) Lymph # [place] # Baso # Seg Neutrophils % Seg Neuts % (Manual) Lymphocytes % (Manual) Monocytes % (Manual) Eosinophils % (Manual) Basophils % (Manual) Nucleated RBC % Seg Neutrophils # Seg Neutrophils # Man Lymphocytes # (Manual) Monocytes # (Manual) Eosinophils # (Manual) Basophils # (Manual) PT INR Fibrinogen dRVVT Confirm Interp Factor V Activity POC ABG pH POC ABG pCO2 POC ABG pO2 ABG pO2 ABG HCO3 ABG Base Excess ABG Hemoglobin Oxyhemoglobin Sodium Potassium Chloride Carbon Dioxide BUN Creatinine Glucose POC Glucose 106 H 117 H 120 H Lactic Acid Calcium Phosphorus Magnesium Direct Bilirubin AST ALT Alkaline Phosphatase Lactate Dehydrogenase Troponin T C-Reactive Protein Total Protein Albumin Prealbumin Triglycerides Cholesterol LDL Cholesterol Direct HDL Cholesterol PTH Intact Urine pH Urine WBC (Auto) Urine Creatinine Urine Total Protein Fluid Total Protein Vancomycin Trough Rheumatoid Factor Complement C4 Miscellaneous Test Crossmatch 10/31/16 10/31/16 10/31/16 05:43 07:15 07:15 WBC 12.1 H RBC 2.63 L Hgb 7.7 L Hct 23.3 L MCV MCH MCHC RDW 16.7 H Plt Count Lymph % (Auto) 11.7 L [place] % (Auto) 7.7 H Lymph # [place] # 0.9 H Baso # Seg Neutrophils % 78.0 H Seg Neuts % (Manual) Lymphocytes % (Manual) Monocytes % (Manual) Eosinophils % (Manual) Basophils % (Manual) Nucleated RBC % Seg Neutrophils # 9.4 H Seg Neutrophils # Man Lymphocytes # (Manual) Monocytes # (Manual) Eosinophils # (Manual) Basophils # (Manual) PT INR Fibrinogen dRVVT Confirm Interp Factor V Activity POC ABG pH POC ABG pCO2 POC ABG pO2 ABG pO2 ABG HCO3 ABG Base Excess ABG Hemoglobin Oxyhemoglobin Sodium Potassium Chloride 96.4 L Carbon Dioxide 21 L BUN 99 H Creatinine 2.6 H Glucose 144 H POC Glucose 125 H Lactic Acid Calcium Phosphorus 4.80 H Magnesium Direct Bilirubin AST ALT Alkaline Phosphatase Lactate Dehydrogenase Troponin T C-Reactive Protein Total Protein Albumin Prealbumin Triglycerides Cholesterol LDL Cholesterol Direct HDL Cholesterol PTH Intact Urine pH Urine WBC (Auto) Urine Creatinine Urine Total Protein Fluid Total Protein Vancomycin Trough Rheumatoid Factor Complement C4 Miscellaneous Test Crossmatch 10/31/16 10/31/16 11/01/16 11:46 18:34 00:20 WBC RBC Hgb Hct MCV MCH MCHC RDW Plt Count Lymph % (Auto) [place] % (Auto) Lymph # [place] # Baso # Seg Neutrophils % Seg Neuts % (Manual) Lymphocytes % (Manual) Monocytes % (Manual) Eosinophils % (Manual) Basophils % (Manual) Nucleated RBC % Seg Neutrophils # Seg Neutrophils # Man Lymphocytes # (Manual) Monocytes # (Manual) Eosinophils # (Manual) Basophils # (Manual) PT INR Fibrinogen dRVVT Confirm Interp Factor V Activity POC ABG pH POC ABG pCO2 POC ABG pO2 ABG pO2 ABG HCO3 ABG Base Excess ABG Hemoglobin Oxyhemoglobin Sodium Potassium Chloride Carbon Dioxide BUN Creatinine Glucose POC Glucose 159 H 140 H 132 H Lactic Acid Calcium Phosphorus Magnesium Direct Bilirubin AST ALT Alkaline Phosphatase Lactate Dehydrogenase Troponin T C-Reactive Protein Total Protein Albumin Prealbumin Triglycerides Cholesterol LDL Cholesterol Direct HDL Cholesterol PTH Intact Urine pH Urine WBC (Auto) Urine Creatinine Urine Total Protein Fluid Total Protein Vancomycin Trough Rheumatoid Factor Complement C4 Miscellaneous Test Crossmatch 11/01/16 11/01/16 11/01/16 04:55 04:55 06:11 WBC 11.2 H RBC 2.68 L Hgb 7.5 L Hct 23.7 L MCV MCH MCHC RDW 16.1 H Plt Count Lymph % (Auto) [place] % (Auto) 9.8 H Lymph # [place] # 1.1 H Baso # Seg Neutrophils % 70.8 H Seg Neuts % (Manual) Lymphocytes % (Manual) Monocytes % (Manual) Eosinophils % (Manual) Basophils % (Manual) Nucleated RBC % Seg Neutrophils # 7.9 H Seg Neutrophils # Man Lymphocytes # (Manual) Monocytes # (Manual) Eosinophils # (Manual) Basophils # (Manual) PT INR Fibrinogen dRVVT Confirm Interp Factor V Activity POC ABG pH POC ABG pCO2 POC ABG pO2 ABG pO2 ABG HCO3 ABG Base Excess ABG Hemoglobin Oxyhemoglobin Sodium Potassium 3.3 L D Chloride Carbon Dioxide BUN 61 H Creatinine 1.9 H Glucose 114 H POC Glucose 115 H Lactic Acid Calcium Phosphorus 1.80 L D Magnesium Direct Bilirubin AST ALT Alkaline Phosphatase Lactate Dehydrogenase Troponin T C-Reactive Protein Total Protein Albumin Prealbumin Triglycerides Cholesterol LDL Cholesterol Direct HDL Cholesterol PTH Intact Urine pH Urine WBC (Auto) Urine Creatinine Urine Total Protein Fluid Total Protein Vancomycin Trough Rheumatoid Factor Complement C4 Miscellaneous Test Crossmatch 11/01/16 11/01/16 11/01/16 12:29 18:23 23:58 WBC RBC Hgb Hct MCV MCH MCHC RDW Plt Count Lymph % (Auto) [place] % (Auto) Lymph # [place] # Baso # Seg Neutrophils % Seg Neuts % (Manual) Lymphocytes % (Manual) Monocytes % (Manual) Eosinophils % (Manual) Basophils % (Manual) Nucleated RBC % Seg Neutrophils # Seg Neutrophils # Man Lymphocytes # (Manual) Monocytes # (Manual) Eosinophils # (Manual) Basophils # (Manual) PT INR Fibrinogen dRVVT Confirm Interp Factor V Activity POC ABG pH POC ABG pCO2 POC ABG pO2 ABG pO2 ABG HCO3 ABG Base Excess ABG Hemoglobin Oxyhemoglobin Sodium Potassium Chloride Carbon Dioxide BUN Creatinine Glucose POC Glucose 142 H 143 H 128 H Lactic Acid Calcium Phosphorus Magnesium Direct Bilirubin AST ALT Alkaline Phosphatase Lactate Dehydrogenase Troponin T C-Reactive Protein Total Protein Albumin Prealbumin Triglycerides Cholesterol LDL Cholesterol Direct HDL Cholesterol PTH Intact Urine pH Urine WBC (Auto) Urine Creatinine Urine Total Protein Fluid Total Protein Vancomycin Trough Rheumatoid Factor Complement C4 Miscellaneous Test Crossmatch 11/02/16 11/02/16 11/02/16 04:16 05:29 11:58 WBC RBC Hgb Hct MCV MCH MCHC RDW Plt Count Lymph % (Auto) [place] % (Auto) Lymph # [place] # Baso # Seg Neutrophils % Seg Neuts % (Manual) Lymphocytes % (Manual) Monocytes % (Manual) Eosinophils % (Manual) Basophils % (Manual) Nucleated RBC % Seg Neutrophils # Seg Neutrophils # Man Lymphocytes # (Manual) Monocytes # (Manual) Eosinophils # (Manual) Basophils # (Manual) PT INR Fibrinogen dRVVT Confirm Interp Factor V Activity POC ABG pH POC ABG pCO2 POC ABG pO2 ABG pO2 ABG HCO3 ABG Base Excess ABG Hemoglobin Oxyhemoglobin Sodium Potassium 3.1 L Chloride Carbon Dioxide BUN 73 H Creatinine 2.3 H Glucose 112 H POC Glucose 135 H 149 H Lactic Acid Calcium Phosphorus Magnesium Direct Bilirubin AST ALT Alkaline Phosphatase Lactate Dehydrogenase Troponin T C-Reactive Protein Total Protein Albumin Prealbumin Triglycerides Cholesterol LDL Cholesterol Direct HDL Cholesterol PTH Intact Urine pH Urine WBC (Auto) Urine Creatinine Urine Total Protein Fluid Total Protein Vancomycin Trough Rheumatoid Factor Complement C4 Miscellaneous Test Crossmatch 11/02/16 11/02/16 11/03/16 17:42 22:54 06:00 WBC RBC Hgb Hct MCV MCH MCHC RDW Plt Count Lymph % (Auto) [place] % (Auto) Lymph # [place] # Baso # Seg Neutrophils % Seg Neuts % (Manual) Lymphocytes % (Manual) Monocytes % (Manual) Eosinophils % (Manual) Basophils % (Manual) Nucleated RBC % Seg Neutrophils # Seg Neutrophils # Man Lymphocytes # (Manual) Monocytes # (Manual) Eosinophils # (Manual) Basophils # (Manual) PT INR Fibrinogen dRVVT Confirm Interp Factor V Activity POC ABG pH POC ABG pCO2 POC ABG pO2 ABG pO2 ABG HCO3 ABG Base Excess ABG Hemoglobin Oxyhemoglobin Sodium Potassium Chloride 96.7 L Carbon Dioxide BUN 41 H Creatinine 1.5 H Glucose 145 H POC Glucose 182 H 115 H Lactic Acid Calcium Phosphorus 1.60 L D Magnesium 1.50 L Direct Bilirubin AST ALT Alkaline Phosphatase Lactate Dehydrogenase Troponin T C-Reactive Protein Total Protein Albumin Prealbumin Triglycerides Cholesterol LDL Cholesterol Direct HDL Cholesterol PTH Intact Urine pH Urine WBC (Auto) Urine Creatinine Urine Total Protein Fluid Total Protein Vancomycin Trough Rheumatoid Factor Complement C4 Miscellaneous Test Crossmatch 11/03/16 11/03/16 11/03/16 11:53 17:45 23:37 WBC RBC Hgb Hct MCV MCH MCHC RDW Plt Count Lymph % (Auto) [place] % (Auto) Lymph # [place] # Baso # Seg Neutrophils % Seg Neuts % (Manual) Lymphocytes % (Manual) Monocytes % (Manual) Eosinophils % (Manual) Basophils % (Manual) Nucleated RBC % Seg Neutrophils # Seg Neutrophils # Man Lymphocytes # (Manual) Monocytes # (Manual) Eosinophils # (Manual) Basophils # (Manual) PT INR Fibrinogen dRVVT Confirm Interp Factor V Activity POC ABG pH POC ABG pCO2 POC ABG pO2 ABG pO2 ABG HCO3 ABG Base Excess ABG Hemoglobin Oxyhemoglobin Sodium Potassium Chloride Carbon Dioxide BUN Creatinine Glucose POC Glucose 131 H 134 H 113 H Lactic Acid Calcium Phosphorus Magnesium Direct Bilirubin AST ALT Alkaline Phosphatase Lactate Dehydrogenase Troponin T C-Reactive Protein Total Protein Albumin Prealbumin Triglycerides Cholesterol LDL Cholesterol Direct HDL Cholesterol PTH Intact Urine pH Urine WBC (Auto) Urine Creatinine Urine Total Protein Fluid Total Protein Vancomycin Trough Rheumatoid Factor Complement C4 Miscellaneous Test Crossmatch 11/04/16 11/04/16 11/04/16 05:41 06:00 12:10 WBC RBC Hgb Hct MCV MCH MCHC RDW Plt Count Lymph % (Auto) [place] % (Auto) Lymph # [place] # Baso # Seg Neutrophils % Seg Neuts % (Manual) Lymphocytes % (Manual) Monocytes % (Manual) Eosinophils % (Manual) Basophils % (Manual) Nucleated RBC % Seg Neutrophils # Seg Neutrophils # Man Lymphocytes # (Manual) Monocytes # (Manual) Eosinophils # (Manual) Basophils # (Manual) PT INR Fibrinogen dRVVT Confirm Interp Factor V Activity POC ABG pH POC ABG pCO2 POC ABG pO2 ABG pO2 ABG HCO3 ABG Base Excess ABG Hemoglobin Oxyhemoglobin Sodium Potassium Chloride 96.7 L Carbon Dioxide BUN 52 H Creatinine 1.9 H Glucose 126 H POC Glucose 137 H 191 H Lactic Acid Calcium Phosphorus Magnesium Direct Bilirubin AST ALT Alkaline Phosphatase Lactate Dehydrogenase Troponin T C-Reactive Protein Total Protein Albumin Prealbumin Triglycerides Cholesterol LDL Cholesterol Direct HDL Cholesterol PTH Intact Urine pH Urine WBC (Auto) Urine Creatinine Urine Total Protein Fluid Total Protein Vancomycin Trough Rheumatoid Factor Complement C4 Miscellaneous Test Crossmatch 11/04/16 11/05/16 11/05/16 22:57 03:10 05:10 WBC RBC Hgb Hct MCV MCH MCHC RDW Plt Count Lymph % (Auto) [place] % (Auto) Lymph # [place] # Baso # Seg Neutrophils % Seg Neuts % (Manual) Lymphocytes % (Manual) Monocytes % (Manual) Eosinophils % (Manual) Basophils % (Manual) Nucleated RBC % Seg Neutrophils # Seg Neutrophils # Man Lymphocytes # (Manual) Monocytes # (Manual) Eosinophils # (Manual) Basophils # (Manual) PT INR Fibrinogen dRVVT Confirm Interp Factor V Activity POC ABG pH POC ABG pCO2 POC ABG pO2 ABG pO2 ABG HCO3 ABG Base Excess ABG Hemoglobin Oxyhemoglobin Sodium 136 L Potassium Chloride 97.2 L Carbon Dioxide BUN 32 H Creatinine 1.3 H Glucose 123 H POC Glucose 125 H 108 H Lactic Acid Calcium 7.8 L Phosphorus Magnesium Direct Bilirubin AST ALT Alkaline Phosphatase Lactate Dehydrogenase Troponin T C-Reactive Protein Total Protein Albumin Prealbumin Triglycerides Cholesterol LDL Cholesterol Direct HDL Cholesterol PTH Intact Urine pH Urine WBC (Auto) Urine Creatinine Urine Total Protein Fluid Total Protein Vancomycin Trough Rheumatoid Factor Complement C4 Miscellaneous Test Crossmatch 11/05/16 11/05/16 11/05/16 12:23 13:09 13:25 WBC RBC Hgb Hct MCV MCH MCHC RDW Plt Count Lymph % (Auto) [place] % (Auto) Lymph # [place] # Baso # Seg Neutrophils % Seg Neuts % (Manual) Lymphocytes % (Manual) Monocytes % (Manual) Eosinophils % (Manual) Basophils % (Manual) Nucleated RBC % Seg Neutrophils # Seg Neutrophils # Man Lymphocytes # (Manual) Monocytes # (Manual) Eosinophils # (Manual) Basophils # (Manual) PT INR Fibrinogen dRVVT Confirm Interp Factor V Activity POC ABG pH POC ABG pCO2 POC ABG pO2 ABG pO2 ABG HCO3 ABG Base Excess ABG Hemoglobin Oxyhemoglobin Sodium Potassium Chloride Carbon Dioxide BUN Creatinine Glucose POC Glucose 124 H Lactic Acid Calcium Phosphorus Magnesium Direct Bilirubin AST ALT Alkaline Phosphatase Lactate Dehydrogenase Troponin T C-Reactive Protein 11.40 H Total Protein Albumin Prealbumin Triglycerides Cholesterol LDL Cholesterol Direct HDL Cholesterol PTH Intact Urine pH 9.0 H Urine WBC (Auto) Urine Creatinine Urine Total Protein Fluid Total Protein Vancomycin Trough Rheumatoid Factor Complement C4 Miscellaneous Test Crossmatch 11/05/16 11/05/16 11/05/16 13:25 17:54 23:42 WBC RBC Hgb Hct MCV MCH MCHC RDW Plt Count Lymph % (Auto) [place] % (Auto) Lymph # [place] # Baso # Seg Neutrophils % Seg Neuts % (Manual) Lymphocytes % (Manual) Monocytes % (Manual) Eosinophils % (Manual) Basophils % (Manual) Nucleated RBC % Seg Neutrophils # Seg Neutrophils # Man Lymphocytes # (Manual) Monocytes # (Manual) Eosinophils # (Manual) Basophils # (Manual) PT INR Fibrinogen dRVVT Confirm Interp Factor V Activity POC ABG pH POC ABG pCO2 POC ABG pO2 ABG pO2 ABG HCO3 ABG Base Excess ABG Hemoglobin Oxyhemoglobin Sodium Potassium Chloride Carbon Dioxide BUN Creatinine Glucose POC Glucose 114 H 134 H Lactic Acid Calcium Phosphorus Magnesium Direct Bilirubin AST ALT Alkaline Phosphatase Lactate Dehydrogenase Troponin T C-Reactive Protein Total Protein Albumin Prealbumin Triglycerides Cholesterol LDL Cholesterol Direct HDL Cholesterol PTH Intact Urine pH Urine WBC (Auto) Urine Creatinine Urine Total Protein Fluid Total Protein Vancomycin Trough Rheumatoid Factor Complement C4 Miscellaneous Test Flexitest 1 H Crossmatch 11/06/16 11/06/16 11/06/16 04:56 06:25 06:25 WBC RBC 2.50 L Hgb 7.3 L Hct 22.5 L MCV MCH MCHC RDW 16.9 H Plt Count Lymph % (Auto) [place] % (Auto) 10.5 H Lymph # [place] # 1.1 H Baso # Seg Neutrophils % Seg Neuts % (Manual) Lymphocytes % (Manual) Monocytes % (Manual) Eosinophils % (Manual) Basophils % (Manual) Nucleated RBC % Seg Neutrophils # Seg Neutrophils # Man Lymphocytes # (Manual) Monocytes # (Manual) Eosinophils # (Manual) Basophils # (Manual) PT INR Fibrinogen dRVVT Confirm Interp Factor V Activity POC ABG pH POC ABG pCO2 POC ABG pO2 ABG pO2 ABG HCO3 ABG Base Excess ABG Hemoglobin Oxyhemoglobin Sodium Potassium 5.1 H Chloride 95.9 L Carbon Dioxide BUN 52 H Creatinine 1.8 H Glucose 117 H POC Glucose 120 H Lactic Acid Calcium Phosphorus Magnesium Direct Bilirubin AST 103 H ALT 77 H Alkaline Phosphatase 285 H Lactate Dehydrogenase Troponin T C-Reactive Protein Total Protein 6.2 L Albumin 1.8 L Prealbumin 0.180 L Triglycerides Cholesterol LDL Cholesterol Direct HDL Cholesterol PTH Intact Urine pH Urine WBC (Auto) Urine Creatinine Urine Total Protein Fluid Total Protein Vancomycin Trough Rheumatoid Factor Complement C4 Miscellaneous Test Crossmatch 11/06/16 11/06/16 11/06/16 11:56 17:14 23:52 WBC RBC Hgb Hct MCV MCH MCHC RDW Plt Count Lymph % (Auto) [place] % (Auto) Lymph # [place] # Baso # Seg Neutrophils % Seg Neuts % (Manual) Lymphocytes % (Manual) Monocytes % (Manual) Eosinophils % (Manual) Basophils % (Manual) Nucleated RBC % Seg Neutrophils # Seg Neutrophils # Man Lymphocytes # (Manual) Monocytes # (Manual) Eosinophils # (Manual) Basophils # (Manual) PT INR Fibrinogen dRVVT Confirm Interp Factor V Activity POC ABG pH POC ABG pCO2 POC ABG pO2 ABG pO2 ABG HCO3 ABG Base Excess ABG Hemoglobin Oxyhemoglobin Sodium Potassium Chloride Carbon Dioxide BUN Creatinine Glucose POC Glucose 141 H 125 H 130 H Lactic Acid Calcium Phosphorus Magnesium Direct Bilirubin AST ALT Alkaline Phosphatase Lactate Dehydrogenase Troponin T C-Reactive Protein Total Protein Albumin Prealbumin Triglycerides Cholesterol LDL Cholesterol Direct HDL Cholesterol PTH Intact Urine pH Urine WBC (Auto) Urine Creatinine Urine Total Protein Fluid Total Protein Vancomycin Trough Rheumatoid Factor Complement C4 Miscellaneous Test Crossmatch 11/07/16 11/07/16 11/07/16 06:30 06:30 09:37 WBC RBC 2.18 L Hgb 6.3 L Hct 19.7 L* MCV MCH MCHC RDW 16.8 H Plt Count Lymph % (Auto) [place] % (Auto) 10.0 H Lymph # [place] # 1.0 H Baso # Seg Neutrophils % Seg Neuts % (Manual) Lymphocytes % (Manual) Monocytes % (Manual) Eosinophils % (Manual) Basophils % (Manual) Nucleated RBC % Seg Neutrophils # Seg Neutrophils # Man Lymphocytes # (Manual) Monocytes # (Manual) Eosinophils # (Manual) Basophils # (Manual) PT INR Fibrinogen dRVVT Confirm Interp Factor V Activity POC ABG pH POC ABG pCO2 POC ABG pO2 ABG pO2 ABG HCO3 ABG Base Excess ABG Hemoglobin Oxyhemoglobin Sodium 135 L Potassium Chloride 95.6 L Carbon Dioxide BUN 70 H Creatinine 2.0 H Glucose 126 H POC Glucose Lactic Acid Calcium Phosphorus Magnesium Direct Bilirubin AST ALT Alkaline Phosphatase Lactate Dehydrogenase Troponin T C-Reactive Protein Total Protein Albumin Prealbumin Triglycerides Cholesterol LDL Cholesterol Direct HDL Cholesterol PTH Intact Urine pH Urine WBC (Auto) Urine Creatinine Urine Total Protein Fluid Total Protein Vancomycin Trough Rheumatoid Factor Complement C4 Miscellaneous Test Crossmatch See Detail 11/07/16 11/07/16 11/07/16 12:52 18:51 21:26 WBC RBC Hgb Hct MCV MCH MCHC RDW Plt Count Lymph % (Auto) [place] % (Auto) Lymph # [place] # Baso # Seg Neutrophils % Seg Neuts % (Manual) Lymphocytes % (Manual) Monocytes % (Manual) Eosinophils % (Manual) Basophils % (Manual) Nucleated RBC % Seg Neutrophils # Seg Neutrophils # Man Lymphocytes # (Manual) Monocytes # (Manual) Eosinophils # (Manual) Basophils # (Manual) PT INR Fibrinogen dRVVT Confirm Interp Factor V Activity POC ABG pH 7.523 H POC ABG pCO2 34.6 L POC ABG pO2 53 L ABG pO2 ABG HCO3 ABG Base Excess ABG Hemoglobin Oxyhemoglobin Sodium Potassium Chloride Carbon Dioxide BUN Creatinine Glucose POC Glucose 142 H 155 H Lactic Acid Calcium Phosphorus Magnesium Direct Bilirubin AST ALT Alkaline Phosphatase Lactate Dehydrogenase Troponin T C-Reactive Protein Total Protein Albumin Prealbumin Triglycerides Cholesterol LDL Cholesterol Direct HDL Cholesterol PTH Intact Urine pH Urine WBC (Auto) Urine Creatinine Urine Total Protein Fluid Total Protein Vancomycin Trough Rheumatoid Factor Complement C4 Miscellaneous Test Crossmatch 11/07/16 11/08/16 11/08/16 21:34 13:03 23:37 WBC RBC 2.63 L Hgb 7.7 L Hct 22.7 L MCV MCH MCHC RDW 17.0 H Plt Count Lymph % (Auto) [place] % (Auto) Lymph # [place] # Baso # Seg Neutrophils % Seg Neuts % (Manual) Lymphocytes % (Manual) Monocytes % (Manual) Eosinophils % (Manual) Basophils % (Manual) Nucleated RBC % Seg Neutrophils # Seg Neutrophils # Man Lymphocytes # (Manual) Monocytes # (Manual) Eosinophils # (Manual) Basophils # (Manual) PT INR Fibrinogen dRVVT Confirm Interp Factor V Activity POC ABG pH 7.478 H POC ABG pCO2 34.0 L POC ABG pO2 50 L ABG pO2 ABG HCO3 ABG Base Excess ABG Hemoglobin Oxyhemoglobin Sodium Potassium Chloride Carbon Dioxide BUN Creatinine Glucose POC Glucose 113 H Lactic Acid Calcium Phosphorus Magnesium Direct Bilirubin AST ALT Alkaline Phosphatase Lactate Dehydrogenase Troponin T C-Reactive Protein Total Protein Albumin Prealbumin Triglycerides Cholesterol LDL Cholesterol Direct HDL Cholesterol PTH Intact Urine pH Urine WBC (Auto) Urine Creatinine Urine Total Protein Fluid Total Protein Vancomycin Trough Rheumatoid Factor Complement C4 Miscellaneous Test Crossmatch 11/09/16 11/09/16 11/09/16 04:35 10:15 18:21 WBC RBC 2.68 L Hgb 7.8 L Hct 23.3 L MCV MCH MCHC RDW 17.0 H Plt Count Lymph % (Auto) [place] % (Auto) 12.1 H Lymph # [place] # 1.1 H Baso # Seg Neutrophils % Seg Neuts % (Manual) Lymphocytes % (Manual) Monocytes % (Manual) Eosinophils % (Manual) Basophils % (Manual) Nucleated RBC % Seg Neutrophils # Seg Neutrophils # Man Lymphocytes # (Manual) Monocytes # (Manual) Eosinophils # (Manual) Basophils # (Manual) PT INR Fibrinogen dRVVT Confirm Interp Factor V Activity POC ABG pH POC ABG pCO2 POC ABG pO2 ABG pO2 ABG HCO3 ABG Base Excess ABG Hemoglobin Oxyhemoglobin Sodium Potassium Chloride Carbon Dioxide BUN 51 H Creatinine 1.8 H Glucose POC Glucose 60 L Lactic Acid Calcium 8.3 L Phosphorus Magnesium Direct Bilirubin AST ALT Alkaline Phosphatase Lactate Dehydrogenase Troponin T C-Reactive Protein Total Protein Albumin Prealbumin Triglycerides Cholesterol LDL Cholesterol Direct HDL Cholesterol PTH Intact Urine pH Urine WBC (Auto) Urine Creatinine Urine Total Protein Fluid Total Protein Vancomycin Trough Rheumatoid Factor Complement C4 Miscellaneous Test Crossmatch 11/09/16 11/10/16 11/10/16 18:55 07:00 11:51 WBC RBC Hgb Hct MCV MCH MCHC RDW Plt Count Lymph % (Auto) [place] % (Auto) Lymph # [place] # Baso # Seg Neutrophils % Seg Neuts % (Manual) Lymphocytes % (Manual) Monocytes % (Manual) Eosinophils % (Manual) Basophils % (Manual) Nucleated RBC % Seg Neutrophils # Seg Neutrophils # Man Lymphocytes # (Manual) Monocytes # (Manual) Eosinophils # (Manual) Basophils # (Manual) PT INR Fibrinogen dRVVT Confirm Interp Factor V Activity POC ABG pH POC ABG pCO2 POC ABG pO2 ABG pO2 ABG HCO3 ABG Base Excess ABG Hemoglobin Oxyhemoglobin Sodium Potassium 3.0 L D Chloride 97.4 L Carbon Dioxide BUN 28 H Creatinine 1.3 H Glucose POC Glucose 68 L 120 H Lactic Acid Calcium 7.8 L Phosphorus Magnesium Direct Bilirubin AST ALT Alkaline Phosphatase Lactate Dehydrogenase Troponin T C-Reactive Protein Total Protein Albumin Prealbumin Triglycerides Cholesterol LDL Cholesterol Direct HDL Cholesterol PTH Intact Urine pH Urine WBC (Auto) Urine Creatinine Urine Total Protein Fluid Total Protein Vancomycin Trough Rheumatoid Factor Complement C4 Miscellaneous Test Crossmatch 11/10/16 11/11/16 11/11/16 14:20 06:59 06:59 WBC RBC 2.81 L Hgb 8.1 L Hct 24.4 L MCV MCH MCHC RDW 16.4 H Plt Count Lymph % (Auto) [place] % (Auto) 10.8 H Lymph # [place] # 1.0 H Baso # Seg Neutrophils % Seg Neuts % (Manual) Lymphocytes % (Manual) Monocytes % (Manual) Eosinophils % (Manual) Basophils % (Manual) Nucleated RBC % Seg Neutrophils # Seg Neutrophils # Man Lymphocytes # (Manual) Monocytes # (Manual) Eosinophils # (Manual) Basophils # (Manual) PT INR Fibrinogen dRVVT Confirm Interp Factor V Activity POC ABG pH POC ABG pCO2 POC ABG pO2 ABG pO2 ABG HCO3 ABG Base Excess ABG Hemoglobin Oxyhemoglobin Sodium Potassium Chloride Carbon Dioxide BUN Creatinine Glucose POC Glucose Lactic Acid Calcium Phosphorus Magnesium Direct Bilirubin AST ALT Alkaline Phosphatase Lactate Dehydrogenase 196 H Troponin T C-Reactive Protein Total Protein 6.1 L Albumin Prealbumin Triglycerides Cholesterol LDL Cholesterol Direct HDL Cholesterol PTH Intact Urine pH Urine WBC (Auto) Urine Creatinine Urine Total Protein Fluid Total Protein < 3.0 L Vancomycin Trough Rheumatoid Factor Complement C4 Miscellaneous Test Crossmatch 11/11/16 11/11/16 11/12/16 06:59 09:50 04:00 WBC RBC Hgb Hct MCV MCH MCHC RDW Plt Count Lymph % (Auto) [place] % (Auto) Lymph # [place] # Baso # Seg Neutrophils % Seg Neuts % (Manual) Lymphocytes % (Manual) Monocytes % (Manual) Eosinophils % (Manual) Basophils % (Manual) Nucleated RBC % Seg Neutrophils # Seg Neutrophils # Man Lymphocytes # (Manual) Monocytes # (Manual) Eosinophils # (Manual) Basophils # (Manual) PT INR 1.18 H Fibrinogen dRVVT Confirm Interp Factor V Activity POC ABG pH POC ABG pCO2 POC ABG pO2 ABG pO2 ABG HCO3 ABG Base Excess ABG Hemoglobin Oxyhemoglobin Sodium 136 L 133 L Potassium Chloride 96.1 L 94.8 L Carbon Dioxide 21 L BUN 37 H 42 H Creatinine 1.8 H 2.0 H Glucose POC Glucose Lactic Acid Calcium Phosphorus Magnesium Direct Bilirubin AST ALT Alkaline Phosphatase Lactate Dehydrogenase Troponin T C-Reactive Protein Total Protein Albumin Prealbumin Triglycerides Cholesterol LDL Cholesterol Direct HDL Cholesterol PTH Intact Urine pH Urine WBC (Auto) Urine Creatinine Urine Total Protein Fluid Total Protein Vancomycin Trough Rheumatoid Factor Complement C4 Miscellaneous Test Crossmatch 11/12/16 11/12/16 11/13/16 04:00 23:55 05:53 WBC RBC Hgb 8.9 L Hct 27.2 L MCV MCH MCHC RDW Plt Count Lymph % (Auto) [place] % (Auto) Lymph # [place] # Baso # Seg Neutrophils % Seg Neuts % (Manual) Lymphocytes % (Manual) Monocytes % (Manual) Eosinophils % (Manual) Basophils % (Manual) Nucleated RBC % Seg Neutrophils # Seg Neutrophils # Man Lymphocytes # (Manual) Monocytes # (Manual) Eosinophils # (Manual) Basophils # (Manual) PT INR Fibrinogen dRVVT Confirm Interp Factor V Activity POC ABG pH POC ABG pCO2 POC ABG pO2 ABG pO2 ABG HCO3 ABG Base Excess ABG Hemoglobin Oxyhemoglobin Sodium Potassium Chloride Carbon Dioxide BUN Creatinine Glucose POC Glucose 132 H 120 H Lactic Acid Calcium Phosphorus Magnesium Direct Bilirubin AST ALT Alkaline Phosphatase Lactate Dehydrogenase Troponin T C-Reactive Protein Total Protein Albumin Prealbumin Triglycerides Cholesterol LDL Cholesterol Direct HDL Cholesterol PTH Intact Urine pH Urine WBC (Auto) Urine Creatinine Urine Total Protein Fluid Total Protein Vancomycin Trough Rheumatoid Factor Complement C4 Miscellaneous Test Crossmatch 11/13/16 11/13/16 11/13/16 11:43 17:09 23:41 WBC RBC Hgb Hct MCV MCH MCHC RDW Plt Count Lymph % (Auto) [place] % (Auto) Lymph # [place] # Baso # Seg Neutrophils % Seg Neuts % (Manual) Lymphocytes % (Manual) Monocytes % (Manual) Eosinophils % (Manual) Basophils % (Manual) Nucleated RBC % Seg Neutrophils # Seg Neutrophils # Man Lymphocytes # (Manual) Monocytes # (Manual) Eosinophils # (Manual) Basophils # (Manual) PT INR Fibrinogen dRVVT Confirm Interp Factor V Activity POC ABG pH POC ABG pCO2 POC ABG pO2 ABG pO2 ABG HCO3 ABG Base Excess ABG Hemoglobin Oxyhemoglobin Sodium Potassium Chloride Carbon Dioxide BUN Creatinine Glucose POC Glucose 114 H 113 H 108 H Lactic Acid Calcium Phosphorus Magnesium Direct Bilirubin AST ALT Alkaline Phosphatase Lactate Dehydrogenase Troponin T C-Reactive Protein Total Protein Albumin Prealbumin Triglycerides Cholesterol LDL Cholesterol Direct HDL Cholesterol PTH Intact Urine pH Urine WBC (Auto) Urine Creatinine Urine Total Protein Fluid Total Protein Vancomycin Trough Rheumatoid Factor Complement C4 Miscellaneous Test Crossmatch 11/13/16 11/15/16 11/15/16 Unknown 00:37 03:30 WBC 11.2 H RBC 2.72 L Hgb 7.6 L Hct 23.4 L MCV MCH MCHC RDW 16.5 H Plt Count Lymph % (Auto) [place] % (Auto) Lymph # [place] # Baso # Seg Neutrophils % Seg Neuts % (Manual) Lymphocytes % (Manual) Monocytes % (Manual) Eosinophils % (Manual) Basophils % (Manual) Nucleated RBC % Seg Neutrophils # Seg Neutrophils # Man Lymphocytes # (Manual) Monocytes # (Manual) Eosinophils # (Manual) Basophils # (Manual) PT INR Fibrinogen dRVVT Confirm Interp Factor V Activity POC ABG pH POC ABG pCO2 POC ABG pO2 ABG pO2 ABG HCO3 ABG Base Excess ABG Hemoglobin Oxyhemoglobin Sodium 135 L Potassium Chloride 95.2 L Carbon Dioxide BUN 52 H Creatinine 2.2 H Glucose POC Glucose 108 H Lactic Acid Calcium Phosphorus Magnesium Direct Bilirubin AST ALT Alkaline Phosphatase Lactate Dehydrogenase Troponin T C-Reactive Protein Total Protein Albumin Prealbumin Triglycerides Cholesterol LDL Cholesterol Direct HDL Cholesterol PTH Intact Urine pH Urine WBC (Auto) Urine Creatinine Urine Total Protein Fluid Total Protein Vancomycin Trough Rheumatoid Factor Complement C4 Miscellaneous Test Crossmatch 11/15/16 11/15/16 11/15/16 03:30 05:04 11:50 WBC RBC Hgb Hct MCV MCH MCHC RDW Plt Count Lymph % (Auto) [place] % (Auto) Lymph # [place] # Baso # Seg Neutrophils % Seg Neuts % (Manual) Lymphocytes % (Manual) Monocytes % (Manual) Eosinophils % (Manual) Basophils % (Manual) Nucleated RBC % Seg Neutrophils # Seg Neutrophils # Man Lymphocytes # (Manual) Monocytes # (Manual) Eosinophils # (Manual) Basophils # (Manual) PT INR Fibrinogen dRVVT Confirm Interp Factor V Activity POC ABG pH POC ABG pCO2 POC ABG pO2 ABG pO2 ABG HCO3 ABG Base Excess ABG Hemoglobin Oxyhemoglobin Sodium Potassium 3.4 L Chloride Carbon Dioxide BUN 25 H Creatinine 1.5 H Glucose 103 H POC Glucose 121 H 144 H Lactic Acid Calcium Phosphorus Magnesium Direct Bilirubin AST ALT Alkaline Phosphatase Lactate Dehydrogenase Troponin T C-Reactive Protein Total Protein Albumin Prealbumin Triglycerides Cholesterol LDL Cholesterol Direct HDL Cholesterol PTH Intact Urine pH Urine WBC (Auto) Urine Creatinine Urine Total Protein Fluid Total Protein Vancomycin Trough Rheumatoid Factor Complement C4 Miscellaneous Test Crossmatch 11/15/16 11/15/16 11/16/16 21:28 23:20 11:44 WBC RBC Hgb Hct MCV MCH MCHC RDW Plt Count Lymph % (Auto) [place] % (Auto) Lymph # [place] # Baso # Seg Neutrophils % Seg Neuts % (Manual) Lymphocytes % (Manual) Monocytes % (Manual) Eosinophils % (Manual) Basophils % (Manual) Nucleated RBC % Seg Neutrophils # Seg Neutrophils # Man Lymphocytes # (Manual) Monocytes # (Manual) Eosinophils # (Manual) Basophils # (Manual) PT INR Fibrinogen dRVVT Confirm Interp Factor V Activity POC ABG pH 7.462 H POC ABG pCO2 POC ABG pO2 71 L ABG pO2 ABG HCO3 ABG Base Excess ABG Hemoglobin Oxyhemoglobin Sodium Potassium Chloride Carbon Dioxide BUN Creatinine Glucose POC Glucose 116 H 133 H Lactic Acid Calcium Phosphorus Magnesium Direct Bilirubin AST ALT Alkaline Phosphatase Lactate Dehydrogenase Troponin T C-Reactive Protein Total Protein Albumin Prealbumin Triglycerides Cholesterol LDL Cholesterol Direct HDL Cholesterol PTH Intact Urine pH Urine WBC (Auto) Urine Creatinine Urine Total Protein Fluid Total Protein Vancomycin Trough Rheumatoid Factor Complement C4 Miscellaneous Test Crossmatch 11/16/16 11/16/16 11/16/16 12:20 17:05 23:35 WBC 11.7 H RBC 2.73 L Hgb 7.6 L Hct 23.7 L MCV MCH MCHC RDW 16.6 H Plt Count Lymph % (Auto) [place] % (Auto) Lymph # [place] # Baso # Seg Neutrophils % Seg Neuts % (Manual) Lymphocytes % (Manual) Monocytes % (Manual) Eosinophils % (Manual) Basophils % (Manual) Nucleated RBC % Seg Neutrophils # Seg Neutrophils # Man Lymphocytes # (Manual) Monocytes # (Manual) Eosinophils # (Manual) Basophils # (Manual) PT INR Fibrinogen dRVVT Confirm Interp Factor V Activity POC ABG pH POC ABG pCO2 POC ABG pO2 ABG pO2 ABG HCO3 ABG Base Excess ABG Hemoglobin Oxyhemoglobin Sodium Potassium Chloride Carbon Dioxide BUN Creatinine Glucose POC Glucose 154 H 125 H Lactic Acid Calcium Phosphorus Magnesium Direct Bilirubin AST ALT Alkaline Phosphatase Lactate Dehydrogenase Troponin T C-Reactive Protein Total Protein Albumin Prealbumin Triglycerides Cholesterol LDL Cholesterol Direct HDL Cholesterol PTH Intact Urine pH Urine WBC (Auto) Urine Creatinine Urine Total Protein Fluid Total Protein Vancomycin Trough Rheumatoid Factor Complement C4 Miscellaneous Test Crossmatch 11/17/16 11/17/16 11/17/16 03:20 03:20 03:20 WBC RBC 2.55 L Hgb 7.3 L Hct 21.9 L MCV MCH MCHC RDW 16.6 H Plt Count Lymph % (Auto) [place] % (Auto) 11.5 H Lymph # [place] # 1.1 H Baso # Seg Neutrophils % Seg Neuts % (Manual) Lymphocytes % (Manual) Monocytes % (Manual) Eosinophils % (Manual) Basophils % (Manual) Nucleated RBC % Seg Neutrophils # Seg Neutrophils # Man Lymphocytes # (Manual) Monocytes # (Manual) Eosinophils # (Manual) Basophils # (Manual) PT 16.8 H INR 1.37 H Fibrinogen dRVVT Confirm Interp Factor V Activity POC ABG pH POC ABG pCO2 POC ABG pO2 ABG pO2 ABG HCO3 ABG Base Excess ABG Hemoglobin Oxyhemoglobin Sodium Potassium 3.5 L Chloride Carbon Dioxide BUN 21 H Creatinine Glucose POC Glucose Lactic Acid Calcium 7.9 L Phosphorus Magnesium Direct Bilirubin AST ALT Alkaline Phosphatase Lactate Dehydrogenase Troponin T C-Reactive Protein Total Protein Albumin Prealbumin Triglycerides Cholesterol LDL Cholesterol Direct HDL Cholesterol PTH Intact Urine pH Urine WBC (Auto) Urine Creatinine Urine Total Protein Fluid Total Protein Vancomycin Trough Rheumatoid Factor Complement C4 Miscellaneous Test Crossmatch 11/17/16 11/17/16 11/17/16 06:34 11:21 21:22 WBC RBC Hgb Hct MCV MCH MCHC RDW Plt Count Lymph % (Auto) [place] % (Auto) Lymph # [place] # Baso # Seg Neutrophils % Seg Neuts % (Manual) Lymphocytes % (Manual) Monocytes % (Manual) Eosinophils % (Manual) Basophils % (Manual) Nucleated RBC % Seg Neutrophils # Seg Neutrophils # Man Lymphocytes # (Manual) Monocytes # (Manual) Eosinophils # (Manual) Basophils # (Manual) PT INR Fibrinogen dRVVT Confirm Interp Factor V Activity POC ABG pH 7.467 H POC ABG pCO2 POC ABG pO2 73 L ABG pO2 ABG HCO3 ABG Base Excess ABG Hemoglobin Oxyhemoglobin Sodium Potassium Chloride Carbon Dioxide BUN Creatinine Glucose POC Glucose 121 H 119 H Lactic Acid Calcium Phosphorus Magnesium Direct Bilirubin AST ALT Alkaline Phosphatase Lactate Dehydrogenase Troponin T C-Reactive Protein Total Protein Albumin Prealbumin Triglycerides Cholesterol LDL Cholesterol Direct HDL Cholesterol PTH Intact Urine pH Urine WBC (Auto) Urine Creatinine Urine Total Protein Fluid Total Protein Vancomycin Trough Rheumatoid Factor Complement C4 Miscellaneous Test Crossmatch 11/18/16 11/18/16 11/19/16 12:16 17:19 00:00 WBC RBC Hgb Hct MCV MCH MCHC RDW Plt Count Lymph % (Auto) [place] % (Auto) Lymph # [place] # Baso # Seg Neutrophils % Seg Neuts % (Manual) Lymphocytes % (Manual) Monocytes % (Manual) Eosinophils % (Manual) Basophils % (Manual) Nucleated RBC % Seg Neutrophils # Seg Neutrophils # Man Lymphocytes # (Manual) Monocytes # (Manual) Eosinophils # (Manual) Basophils # (Manual) PT INR Fibrinogen dRVVT Confirm Interp Factor V Activity POC ABG pH POC ABG pCO2 POC ABG pO2 ABG pO2 ABG HCO3 ABG Base Excess ABG Hemoglobin Oxyhemoglobin Sodium Potassium Chloride Carbon Dioxide BUN Creatinine Glucose POC Glucose 124 H 162 H 139 H Lactic Acid Calcium Phosphorus Magnesium Direct Bilirubin AST ALT Alkaline Phosphatase Lactate Dehydrogenase Troponin T C-Reactive Protein Total Protein Albumin Prealbumin Triglycerides Cholesterol LDL Cholesterol Direct HDL Cholesterol PTH Intact Urine pH Urine WBC (Auto) Urine Creatinine Urine Total Protein Fluid Total Protein Vancomycin Trough Rheumatoid Factor Complement C4 Miscellaneous Test Crossmatch 11/19/16 11/19/16 11/20/16 05:00 12:43 00:40 WBC RBC Hgb Hct MCV MCH MCHC RDW Plt Count Lymph % (Auto) [place] % (Auto) Lymph # [place] # Baso # Seg Neutrophils % Seg Neuts % (Manual) Lymphocytes % (Manual) Monocytes % (Manual) Eosinophils % (Manual) Basophils % (Manual) Nucleated RBC % Seg Neutrophils # Seg Neutrophils # Man Lymphocytes # (Manual) Monocytes # (Manual) Eosinophils # (Manual) Basophils # (Manual) PT INR Fibrinogen dRVVT Confirm Interp Factor V Activity POC ABG pH POC ABG pCO2 POC ABG pO2 ABG pO2 ABG HCO3 ABG Base Excess ABG Hemoglobin Oxyhemoglobin Sodium Potassium Chloride Carbon Dioxide BUN Creatinine Glucose POC Glucose 110 H 125 H 136 H Lactic Acid Calcium Phosphorus Magnesium Direct Bilirubin AST ALT Alkaline Phosphatase Lactate Dehydrogenase Troponin T C-Reactive Protein Total Protein Albumin Prealbumin Triglycerides Cholesterol LDL Cholesterol Direct HDL Cholesterol PTH Intact Urine pH Urine WBC (Auto) Urine Creatinine Urine Total Protein Fluid Total Protein Vancomycin Trough Rheumatoid Factor Complement C4 Miscellaneous Test Crossmatch 11/20/16 11/20/16 11/20/16 05:00 05:00 05:51 WBC 13.1 H RBC 2.74 L Hgb 7.7 L Hct 23.6 L MCV MCH MCHC RDW 16.9 H Plt Count Lymph % (Auto) [place] % (Auto) 10.8 H Lymph # [place] # 1.4 H Baso # Seg Neutrophils % Seg Neuts % (Manual) Lymphocytes % (Manual) Monocytes % (Manual) Eosinophils % (Manual) Basophils % (Manual) Nucleated RBC % Seg Neutrophils # 7.9 H Seg Neutrophils # Man Lymphocytes # (Manual) Monocytes # (Manual) Eosinophils # (Manual) Basophils # (Manual) PT INR Fibrinogen dRVVT Confirm Interp Factor V Activity POC ABG pH POC ABG pCO2 POC ABG pO2 ABG pO2 ABG HCO3 ABG Base Excess ABG Hemoglobin Oxyhemoglobin Sodium Potassium Chloride Carbon Dioxide BUN 31 H Creatinine 1.8 H Glucose 129 H POC Glucose 133 H Lactic Acid Calcium Phosphorus Magnesium Direct Bilirubin AST ALT Alkaline Phosphatase Lactate Dehydrogenase Troponin T C-Reactive Protein Total Protein Albumin Prealbumin Triglycerides Cholesterol LDL Cholesterol Direct HDL Cholesterol PTH Intact Urine pH Urine WBC (Auto) Urine Creatinine Urine Total Protein Fluid Total Protein Vancomycin Trough Rheumatoid Factor Complement C4 Miscellaneous Test Crossmatch 11/20/16 11/20/16 11/21/16 12:40 18:10 01:20 WBC RBC Hgb Hct MCV MCH MCHC RDW Plt Count Lymph % (Auto) [place] % (Auto) Lymph # [place] # Baso # Seg Neutrophils % Seg Neuts % (Manual) Lymphocytes % (Manual) Monocytes % (Manual) Eosinophils % (Manual) Basophils % (Manual) Nucleated RBC % Seg Neutrophils # Seg Neutrophils # Man Lymphocytes # (Manual) Monocytes # (Manual) Eosinophils # (Manual) Basophils # (Manual) PT INR Fibrinogen dRVVT Confirm Interp Factor V Activity POC ABG pH POC ABG pCO2 POC ABG pO2 ABG pO2 ABG HCO3 ABG Base Excess ABG Hemoglobin Oxyhemoglobin Sodium Potassium Chloride Carbon Dioxide BUN Creatinine Glucose POC Glucose 134 H 138 H 136 H Lactic Acid Calcium Phosphorus Magnesium Direct Bilirubin AST ALT Alkaline Phosphatase Lactate Dehydrogenase Troponin T C-Reactive Protein Total Protein Albumin Prealbumin Triglycerides Cholesterol LDL Cholesterol Direct HDL Cholesterol PTH Intact Urine pH Urine WBC (Auto) Urine Creatinine Urine Total Protein Fluid Total Protein Vancomycin Trough Rheumatoid Factor Complement C4 Miscellaneous Test Crossmatch 11/21/16 11/21/16 11/21/16 07:04 07:45 07:45 WBC 22.0 H RBC 2.91 L Hgb 8.2 L Hct 25.4 L MCV MCH MCHC RDW 17.1 H Plt Count Lymph % (Auto) [place] % (Auto) Lymph # [place] # Baso # Seg Neutrophils % Seg Neuts % (Manual) Lymphocytes % (Manual) 8.0 L Monocytes % (Manual) Eosinophils % (Manual) Basophils % (Manual) Nucleated RBC % Seg Neutrophils # Seg Neutrophils # Man 14.7 H Lymphocytes # (Manual) Monocytes # (Manual) 1.1 H Eosinophils # (Manual) Basophils # (Manual) PT INR Fibrinogen dRVVT Confirm Interp Factor V Activity POC ABG pH POC ABG pCO2 POC ABG pO2 ABG pO2 ABG HCO3 ABG Base Excess ABG Hemoglobin Oxyhemoglobin Sodium Potassium Chloride Carbon Dioxide BUN 42 H Creatinine 2.0 H Glucose POC Glucose 108 H Lactic Acid Calcium Phosphorus Magnesium Direct Bilirubin AST ALT Alkaline Phosphatase Lactate Dehydrogenase Troponin T C-Reactive Protein Total Protein Albumin Prealbumin Triglycerides Cholesterol LDL Cholesterol Direct HDL Cholesterol PTH Intact Urine pH Urine WBC (Auto) Urine Creatinine Urine Total Protein Fluid Total Protein Vancomycin Trough Rheumatoid Factor Complement C4 Miscellaneous Test Crossmatch 11/21/16 11/21/16 11/21/16 08:38 10:09 11:20 WBC RBC Hgb Hct MCV MCH MCHC RDW Plt Count Lymph % (Auto) [place] % (Auto) Lymph # [place] # Baso # Seg Neutrophils % Seg Neuts % (Manual) Lymphocytes % (Manual) Monocytes % (Manual) Eosinophils % (Manual) Basophils % (Manual) Nucleated RBC % Seg Neutrophils # Seg Neutrophils # Man Lymphocytes # (Manual) Monocytes # (Manual) Eosinophils # (Manual) Basophils # (Manual) PT INR Fibrinogen dRVVT Confirm Interp Factor V Activity POC ABG pH 7.346 L POC ABG pCO2 34.4 L POC ABG pO2 314 H ABG pO2 ABG HCO3 ABG Base Excess ABG Hemoglobin Oxyhemoglobin Sodium Potassium Chloride Carbon Dioxide BUN Creatinine Glucose POC Glucose 195 H 153 H Lactic Acid Calcium Phosphorus Magnesium Direct Bilirubin AST ALT Alkaline Phosphatase Lactate Dehydrogenase Troponin T C-Reactive Protein Total Protein Albumin Prealbumin Triglycerides Cholesterol LDL Cholesterol Direct HDL Cholesterol PTH Intact Urine pH Urine WBC (Auto) Urine Creatinine Urine Total Protein Fluid Total Protein Vancomycin Trough Rheumatoid Factor Complement C4 Miscellaneous Test Crossmatch 11/21/16 11/22/16 11/22/16 23:37 04:48 05:00 WBC 29.7 H RBC 2.73 L Hgb 7.5 L Hct 24.2 L MCV MCH 27 L MCHC RDW 17.4 H Plt Count Lymph % (Auto) [place] % (Auto) Lymph # [place] # Baso # Seg Neutrophils % Seg Neuts % (Manual) Lymphocytes % (Manual) 7.0 L Monocytes % (Manual) Eosinophils % (Manual) Basophils % (Manual) Nucleated RBC % Seg Neutrophils # Seg Neutrophils # Man 15.4 H Lymphocytes # (Manual) Monocytes # (Manual) Eosinophils # (Manual) Basophils # (Manual) PT INR Fibrinogen dRVVT Confirm Interp Factor V Activity POC ABG pH POC ABG pCO2 24.6 L POC ABG pO2 189 H ABG pO2 ABG HCO3 ABG Base Excess ABG Hemoglobin Oxyhemoglobin Sodium Potassium Chloride Carbon Dioxide BUN Creatinine Glucose POC Glucose 65 L Lactic Acid Calcium Phosphorus Magnesium Direct Bilirubin AST ALT Alkaline Phosphatase Lactate Dehydrogenase Troponin T C-Reactive Protein Total Protein Albumin Prealbumin Triglycerides Cholesterol LDL Cholesterol Direct HDL Cholesterol PTH Intact Urine pH Urine WBC (Auto) Urine Creatinine Urine Total Protein Fluid Total Protein Vancomycin Trough Rheumatoid Factor Complement C4 Miscellaneous Test Crossmatch 11/22/16 11/23/16 11/23/16 05:00 03:44 04:06 WBC RBC 2.52 L Hgb 7.2 L Hct 21.5 L MCV MCH MCHC RDW 17.1 H Plt Count Lymph % (Auto) [place] % (Auto) 12.4 H Lymph # [place] # 1.4 H Baso # Seg Neutrophils % Seg Neuts % (Manual) Lymphocytes % (Manual) Monocytes % (Manual) Eosinophils % (Manual) Basophils % (Manual) Nucleated RBC % Seg Neutrophils # Seg Neutrophils # Man Lymphocytes # (Manual) Monocytes # (Manual) Eosinophils # (Manual) Basophils # (Manual) PT INR Fibrinogen dRVVT Confirm Interp Factor V Activity POC ABG pH 7.493 H POC ABG pCO2 29.5 L POC ABG pO2 49 L ABG pO2 ABG HCO3 ABG Base Excess ABG Hemoglobin Oxyhemoglobin Sodium 134 L Potassium Chloride 95.9 L Carbon Dioxide 14 L D BUN 51 H Creatinine 2.6 H Glucose POC Glucose Lactic Acid Calcium Phosphorus Magnesium Direct Bilirubin AST ALT Alkaline Phosphatase Lactate Dehydrogenase Troponin T C-Reactive Protein Total Protein Albumin Prealbumin Triglycerides Cholesterol LDL Cholesterol Direct HDL Cholesterol PTH Intact Urine pH Urine WBC (Auto) Urine Creatinine Urine Total Protein Fluid Total Protein Vancomycin Trough Rheumatoid Factor Complement C4 Miscellaneous Test Crossmatch 11/23/16 11/23/16 11/24/16 04:06 11:29 06:39 WBC RBC Hgb Hct MCV MCH MCHC RDW Plt Count Lymph % (Auto) [place] % (Auto) Lymph # [place] # Baso # Seg Neutrophils % Seg Neuts % (Manual) Lymphocytes % (Manual) Monocytes % (Manual) Eosinophils % (Manual) Basophils % (Manual) Nucleated RBC % Seg Neutrophils # Seg Neutrophils # Man Lymphocytes # (Manual) Monocytes # (Manual) Eosinophils # (Manual) Basophils # (Manual) PT INR Fibrinogen dRVVT Confirm Interp Factor V Activity POC ABG pH POC ABG pCO2 POC ABG pO2 ABG pO2 ABG HCO3 ABG Base Excess ABG Hemoglobin Oxyhemoglobin Sodium 136 L Potassium Chloride 95.2 L Carbon Dioxide BUN 60 H Creatinine 2.9 H Glucose POC Glucose 69 L 305 H Lactic Acid Calcium Phosphorus Magnesium 1.60 L Direct Bilirubin AST ALT Alkaline Phosphatase Lactate Dehydrogenase Troponin T C-Reactive Protein Total Protein Albumin Prealbumin Triglycerides Cholesterol LDL Cholesterol Direct HDL Cholesterol PTH Intact Urine pH Urine WBC (Auto) Urine Creatinine Urine Total Protein Fluid Total Protein Vancomycin Trough Rheumatoid Factor Complement C4 Miscellaneous Test Crossmatch 11/24/16 11/24/16 11/24/16 06:43 08:08 08:08 WBC 11.2 H RBC 2.47 L Hgb 6.8 L Hct 20.6 L MCV MCH MCHC RDW 17.0 H Plt Count Lymph % (Auto) [place] % (Auto) 10.3 H Lymph # [place] # 1.2 H Baso # Seg Neutrophils % Seg Neuts % (Manual) Lymphocytes % (Manual) Monocytes % (Manual) Eosinophils % (Manual) Basophils % (Manual) Nucleated RBC % Seg Neutrophils # Seg Neutrophils # Man Lymphocytes # (Manual) Monocytes # (Manual) Eosinophils # (Manual) Basophils # (Manual) PT INR Fibrinogen dRVVT Confirm Interp Factor V Activity POC ABG pH POC ABG pCO2 POC ABG pO2 ABG pO2 ABG HCO3 ABG Base Excess ABG Hemoglobin Oxyhemoglobin Sodium 135 L Potassium Chloride 96.3 L Carbon Dioxide BUN 61 H Creatinine 3.1 H Glucose POC Glucose 62 L Lactic Acid Calcium 8.2 L Phosphorus Magnesium Direct Bilirubin AST ALT Alkaline Phosphatase Lactate Dehydrogenase Troponin T C-Reactive Protein Total Protein Albumin Prealbumin Triglycerides Cholesterol LDL Cholesterol Direct HDL Cholesterol PTH Intact Urine pH Urine WBC (Auto) Urine Creatinine Urine Total Protein Fluid Total Protein Vancomycin Trough Rheumatoid Factor Complement C4 Miscellaneous Test Crossmatch 11/24/16 11/24/16 11/24/16 08:34 11:20 12:41 WBC RBC Hgb Hct MCV MCH MCHC RDW Plt Count Lymph % (Auto) [place] % (Auto) Lymph # [place] # Baso # Seg Neutrophils % Seg Neuts % (Manual) Lymphocytes % (Manual) Monocytes % (Manual) Eosinophils % (Manual) Basophils % (Manual) Nucleated RBC % Seg Neutrophils # Seg Neutrophils # Man Lymphocytes # (Manual) Monocytes # (Manual) Eosinophils # (Manual) Basophils # (Manual) PT INR Fibrinogen dRVVT Confirm Interp Factor V Activity POC ABG pH POC ABG pCO2 POC ABG pO2 ABG pO2 ABG HCO3 ABG Base Excess ABG Hemoglobin Oxyhemoglobin Sodium Potassium Chloride Carbon Dioxide BUN Creatinine Glucose POC Glucose 108 H Lactic Acid Calcium Phosphorus Magnesium 1.60 L Direct Bilirubin AST ALT Alkaline Phosphatase Lactate Dehydrogenase Troponin T C-Reactive Protein Total Protein Albumin Prealbumin Triglycerides Cholesterol LDL Cholesterol Direct HDL Cholesterol PTH Intact Urine pH Urine WBC (Auto) Urine Creatinine Urine Total Protein Fluid Total Protein Vancomycin Trough Rheumatoid Factor Complement C4 Miscellaneous Test Crossmatch See Detail 11/25/16 11/25/16 11/25/16 00:03 04:42 04:42 WBC RBC 3.03 L Hgb 8.6 L Hct 25.3 L MCV MCH MCHC RDW 16.2 H Plt Count Lymph % (Auto) [place] % (Auto) 8.1 H Lymph # [place] # Baso # Seg Neutrophils % 71.3 H Seg Neuts % (Manual) Lymphocytes % (Manual) Monocytes % (Manual) Eosinophils % (Manual) Basophils % (Manual) Nucleated RBC % Seg Neutrophils # Seg Neutrophils # Man Lymphocytes # (Manual) Monocytes # (Manual) Eosinophils # (Manual) Basophils # (Manual) PT INR Fibrinogen dRVVT Confirm Interp Factor V Activity POC ABG pH POC ABG pCO2 POC ABG pO2 ABG pO2 ABG HCO3 ABG Base Excess ABG Hemoglobin Oxyhemoglobin Sodium Potassium Chloride Carbon Dioxide BUN 61 H Creatinine 3.0 H Glucose 102 H POC Glucose 113 H Lactic Acid Calcium 8.2 L Phosphorus Magnesium Direct Bilirubin AST ALT Alkaline Phosphatase 142 H Lactate Dehydrogenase Troponin T C-Reactive Protein Total Protein 5.7 L Albumin 1.5 L Prealbumin Triglycerides Cholesterol LDL Cholesterol Direct HDL Cholesterol PTH Intact Urine pH Urine WBC (Auto) Urine Creatinine Urine Total Protein Fluid Total Protein Vancomycin Trough Rheumatoid Factor Complement C4 Miscellaneous Test Crossmatch 11/25/16 11/25/16 11/25/16 05:12 11:31 14:12 WBC RBC Hgb Hct MCV MCH MCHC RDW Plt Count Lymph % (Auto) [place] % (Auto) Lymph # [place] # Baso # Seg Neutrophils % Seg Neuts % (Manual) Lymphocytes % (Manual) Monocytes % (Manual) Eosinophils % (Manual) Basophils % (Manual) Nucleated RBC % Seg Neutrophils # Seg Neutrophils # Man Lymphocytes # (Manual) Monocytes # (Manual) Eosinophils # (Manual) Basophils # (Manual) PT INR Fibrinogen dRVVT Confirm Interp Factor V Activity POC ABG pH 7.487 H POC ABG pCO2 POC ABG pO2 153 H ABG pO2 ABG HCO3 ABG Base Excess ABG Hemoglobin Oxyhemoglobin Sodium Potassium Chloride Carbon Dioxide BUN Creatinine Glucose POC Glucose 131 H 140 H Lactic Acid Calcium Phosphorus Magnesium Direct Bilirubin AST ALT Alkaline Phosphatase Lactate Dehydrogenase Troponin T C-Reactive Protein Total Protein Albumin Prealbumin Triglycerides Cholesterol LDL Cholesterol Direct HDL Cholesterol PTH Intact Urine pH Urine WBC (Auto) Urine Creatinine Urine Total Protein Fluid Total Protein Vancomycin Trough Rheumatoid Factor Complement C4 Miscellaneous Test Crossmatch 11/25/16 11/26/16 11/26/16 17:23 00:09 05:13 WBC RBC 2.94 L Hgb 8.4 L Hct 24.6 L MCV MCH MCHC RDW 16.4 H Plt Count Lymph % (Auto) [place] % (Auto) 12.3 H Lymph # [place] # 1.1 H Baso # Seg Neutrophils % Seg Neuts % (Manual) Lymphocytes % (Manual) Monocytes % (Manual) Eosinophils % (Manual) Basophils % (Manual) Nucleated RBC % Seg Neutrophils # Seg Neutrophils # Man Lymphocytes # (Manual) Monocytes # (Manual) Eosinophils # (Manual) Basophils # (Manual) PT INR Fibrinogen dRVVT Confirm Interp Factor V Activity POC ABG pH POC ABG pCO2 POC ABG pO2 ABG pO2 ABG HCO3 ABG Base Excess ABG Hemoglobin Oxyhemoglobin Sodium Potassium Chloride Carbon Dioxide BUN Creatinine Glucose POC Glucose 146 H 112 H Lactic Acid Calcium Phosphorus Magnesium Direct Bilirubin AST ALT Alkaline Phosphatase Lactate Dehydrogenase Troponin T C-Reactive Protein Total Protein Albumin Prealbumin Triglycerides Cholesterol LDL Cholesterol Direct HDL Cholesterol PTH Intact Urine pH Urine WBC (Auto) Urine Creatinine Urine Total Protein Fluid Total Protein Vancomycin Trough Rheumatoid Factor Complement C4 Miscellaneous Test Crossmatch 11/26/16 11/26/16 11/26/16 05:13 05:28 11:53 WBC RBC Hgb Hct MCV MCH MCHC RDW Plt Count Lymph % (Auto) [place] % (Auto) Lymph # [place] # Baso # Seg Neutrophils % Seg Neuts % (Manual) Lymphocytes % (Manual) Monocytes % (Manual) Eosinophils % (Manual) Basophils % (Manual) Nucleated RBC % Seg Neutrophils # Seg Neutrophils # Man Lymphocytes # (Manual) Monocytes # (Manual) Eosinophils # (Manual) Basophils # (Manual) PT INR Fibrinogen dRVVT Confirm Interp Factor V Activity POC ABG pH POC ABG pCO2 POC ABG pO2 ABG pO2 ABG HCO3 ABG Base Excess ABG Hemoglobin Oxyhemoglobin Sodium Potassium Chloride 97.8 L Carbon Dioxide BUN 37 H Creatinine 2.0 H Glucose 109 H POC Glucose 117 H 111 H Lactic Acid Calcium 7.9 L Phosphorus 1.80 L D Magnesium Direct Bilirubin AST ALT Alkaline Phosphatase Lactate Dehydrogenase Troponin T C-Reactive Protein Total Protein Albumin Prealbumin Triglycerides Cholesterol LDL Cholesterol Direct HDL Cholesterol PTH Intact Urine pH Urine WBC (Auto) Urine Creatinine Urine Total Protein Fluid Total Protein Vancomycin Trough Rheumatoid Factor Complement C4 Miscellaneous Test Crossmatch 11/26/16 11/27/16 11/27/16 17:14 04:50 06:02 WBC RBC Hgb Hct MCV MCH MCHC RDW Plt Count Lymph % (Auto) [place] % (Auto) Lymph # [place] # Baso # Seg Neutrophils % Seg Neuts % (Manual) Lymphocytes % (Manual) Monocytes % (Manual) Eosinophils % (Manual) Basophils % (Manual) Nucleated RBC % Seg Neutrophils # Seg Neutrophils # Man Lymphocytes # (Manual) Monocytes # (Manual) Eosinophils # (Manual) Basophils # (Manual) PT INR Fibrinogen dRVVT Confirm Interp Factor V Activity POC ABG pH POC ABG pCO2 POC ABG pO2 ABG pO2 75.2 L ABG HCO3 26.4 H ABG Base Excess ABG Hemoglobin 7.6 L Oxyhemoglobin 94.8 L Sodium Potassium Chloride Carbon Dioxide BUN 49 H Creatinine 2.3 H Glucose POC Glucose 115 H Lactic Acid Calcium Phosphorus 1.50 L Magnesium Direct Bilirubin AST ALT Alkaline Phosphatase Lactate Dehydrogenase Troponin T C-Reactive Protein Total Protein Albumin Prealbumin Triglycerides Cholesterol LDL Cholesterol Direct HDL Cholesterol PTH Intact Urine pH Urine WBC (Auto) Urine Creatinine Urine Total Protein Fluid Total Protein Vancomycin Trough Rheumatoid Factor Complement C4 Miscellaneous Test Crossmatch 11/27/16 11/27/16 11/27/16 06:02 11:25 17:25 WBC 11.6 H RBC 2.75 L Hgb 7.6 L Hct 23.4 L MCV MCH MCHC RDW 16.5 H Plt Count Lymph % (Auto) [place] % (Auto) Lymph # [place] # Baso # Seg Neutrophils % Seg Neuts % (Manual) Lymphocytes % (Manual) Monocytes % (Manual) Eosinophils % (Manual) Basophils % (Manual) Nucleated RBC % Seg Neutrophils # Seg Neutrophils # Man Lymphocytes # (Manual) Monocytes # (Manual) Eosinophils # (Manual) Basophils # (Manual) PT INR Fibrinogen dRVVT Confirm Interp Factor V Activity POC ABG pH POC ABG pCO2 POC ABG pO2 ABG pO2 ABG HCO3 ABG Base Excess ABG Hemoglobin Oxyhemoglobin Sodium Potassium Chloride Carbon Dioxide BUN Creatinine Glucose POC Glucose 114 H 126 H Lactic Acid Calcium Phosphorus Magnesium Direct Bilirubin AST ALT Alkaline Phosphatase Lactate Dehydrogenase Troponin T C-Reactive Protein Total Protein Albumin Prealbumin Triglycerides Cholesterol LDL Cholesterol Direct HDL Cholesterol PTH Intact Urine pH Urine WBC (Auto) Urine Creatinine Urine Total Protein Fluid Total Protein Vancomycin Trough Rheumatoid Factor Complement C4 Miscellaneous Test Crossmatch 11/28/16 11/28/16 11/28/16 04:45 05:33 05:44 WBC RBC Hgb Hct MCV MCH MCHC RDW Plt Count Lymph % (Auto) [place] % (Auto) Lymph # [place] # Baso # Seg Neutrophils % Seg Neuts % (Manual) Lymphocytes % (Manual) Monocytes % (Manual) Eosinophils % (Manual) Basophils % (Manual) Nucleated RBC % Seg Neutrophils # Seg Neutrophils # Man Lymphocytes # (Manual) Monocytes # (Manual) Eosinophils # (Manual) Basophils # (Manual) PT INR Fibrinogen dRVVT Confirm Interp Factor V Activity POC ABG pH POC ABG pCO2 POC ABG pO2 ABG pO2 99.3 H ABG HCO3 ABG Base Excess ABG Hemoglobin 8.3 L Oxyhemoglobin Sodium Potassium Chloride Carbon Dioxide BUN 63 H Creatinine 2.4 H Glucose 102 H POC Glucose 108 H Lactic Acid Calcium Phosphorus 1.80 L Magnesium Direct Bilirubin AST ALT Alkaline Phosphatase Lactate Dehydrogenase Troponin T C-Reactive Protein Total Protein Albumin Prealbumin Triglycerides Cholesterol LDL Cholesterol Direct HDL Cholesterol PTH Intact Urine pH Urine WBC (Auto) Urine Creatinine Urine Total Protein Fluid Total Protein Vancomycin Trough Rheumatoid Factor Complement C4 Miscellaneous Test Crossmatch 11/28/16 11/28/16 11/28/16 12:31 16:09 23:46 WBC RBC Hgb Hct MCV MCH MCHC RDW Plt Count Lymph % (Auto) [place] % (Auto) Lymph # [place] # Baso # Seg Neutrophils % Seg Neuts % (Manual) Lymphocytes % (Manual) Monocytes % (Manual) Eosinophils % (Manual) Basophils % (Manual) Nucleated RBC % Seg Neutrophils # Seg Neutrophils # Man Lymphocytes # (Manual) Monocytes # (Manual) Eosinophils # (Manual) Basophils # (Manual) PT INR Fibrinogen dRVVT Confirm Interp Factor V Activity POC ABG pH POC ABG pCO2 POC ABG pO2 ABG pO2 ABG HCO3 ABG Base Excess ABG Hemoglobin Oxyhemoglobin Sodium Potassium Chloride Carbon Dioxide BUN Creatinine Glucose POC Glucose 126 H 111 H 119 H Lactic Acid Calcium Phosphorus Magnesium Direct Bilirubin AST ALT Alkaline Phosphatase Lactate Dehydrogenase Troponin T C-Reactive Protein Total Protein Albumin Prealbumin Triglycerides Cholesterol LDL Cholesterol Direct HDL Cholesterol PTH Intact Urine pH Urine WBC (Auto) Urine Creatinine Urine Total Protein Fluid Total Protein Vancomycin Trough Rheumatoid Factor Complement C4 Miscellaneous Test Crossmatch 11/29/16 11/29/1611/29/17 03:33 04:52 05:10 WBC RBC Hgb Hct MCV MCH MCHC RDW Plt Count Lymph % (Auto) [place] % (Auto) Lymph # [place] # Baso # Seg Neutrophils % Seg Neuts % (Manual) Lymphocytes % (Manual) Monocytes % (Manual) Eosinophils % (Manual) Basophils % (Manual) Nucleated RBC % Seg Neutrophils # Seg Neutrophils # Man Lymphocytes # (Manual) Monocytes # (Manual) Eosinophils # (Manual) Basophils # (Manual) PT INR Fibrinogen dRVVT Confirm Interp Factor V Activity POC ABG pH POC ABG pCO2 POC ABG pO2 ABG pO2 ABG HCO3 ABG Base Excess ABG Hemoglobin 7.0 L Oxyhemoglobin 94.9 L Sodium Potassium Chloride Carbon Dioxide BUN 73 H Creatinine 2.7 H Glucose POC Glucose 108 H Lactic Acid Calcium Phosphorus Magnesium Direct Bilirubin AST ALT Alkaline Phosphatase Lactate Dehydrogenase Troponin T C-Reactive Protein Total Protein Albumin Prealbumin Triglycerides Cholesterol LDL Cholesterol Direct HDL Cholesterol PTH Intact Urine pH Urine WBC (Auto) Urine Creatinine Urine Total Protein Fluid Total Protein Vancomycin Trough Rheumatoid Factor Complement C4 Miscellaneous Test Crossmatch 11/29/16 11/29/16 11/29/16 12:16 18:05 23:46 WBC RBC Hgb Hct MCV MCH MCHC RDW Plt Count Lymph % (Auto) [place] % (Auto) Lymph # [place] # Baso # Seg Neutrophils % Seg Neuts % (Manual) Lymphocytes % (Manual) Monocytes % (Manual) Eosinophils % (Manual) Basophils % (Manual) Nucleated RBC % Seg Neutrophils # Seg Neutrophils # Man Lymphocytes # (Manual) Monocytes # (Manual) Eosinophils # (Manual) Basophils # (Manual) PT INR Fibrinogen dRVVT Confirm Interp Factor V Activity POC ABG pH POC ABG pCO2 POC ABG pO2 ABG pO2 ABG HCO3 ABG Base Excess ABG Hemoglobin Oxyhemoglobin Sodium Potassium Chloride Carbon Dioxide BUN Creatinine Glucose POC Glucose 133 H 146 H 141 H Lactic Acid Calcium Phosphorus Magnesium Direct Bilirubin AST ALT Alkaline Phosphatase Lactate Dehydrogenase Troponin T C-Reactive Protein Total Protein Albumin Prealbumin Triglycerides Cholesterol LDL Cholesterol Direct HDL Cholesterol PTH Intact Urine pH Urine WBC (Auto) Urine Creatinine Urine Total Protein Fluid Total Protein Vancomycin Trough Rheumatoid Factor Complement C4 Miscellaneous Test Crossmatch 11/30/16 11/30/16 11/30/16 04:17 04:17 04:32 WBC 12.0 H RBC 2.80 L Hgb 7.8 L Hct 23.6 L MCV MCH MCHC RDW 16.6 H Plt Count Lymph % (Auto) [place] % (Auto) 11.3 H Lymph # [place] # 1.4 H Baso # Seg Neutrophils % Seg Neuts % (Manual) Lymphocytes % (Manual) Monocytes % (Manual) Eosinophils % (Manual) Basophils % (Manual) Nucleated RBC % Seg Neutrophils # 8.2 H Seg Neutrophils # Man Lymphocytes # (Manual) Monocytes # (Manual) Eosinophils # (Manual) Basophils # (Manual) PT INR Fibrinogen dRVVT Confirm Interp Factor V Activity POC ABG pH POC ABG pCO2 POC ABG pO2 ABG pO2 ABG HCO3 ABG Base Excess ABG Hemoglobin Oxyhemoglobin Sodium 169 H* D Potassium 5.1 H Chloride 121.5 H Carbon Dioxide BUN 34 H Creatinine 1.3 H D Glucose 133 H POC Glucose 131 H Lactic Acid Calcium 10.3 H Phosphorus Magnesium Direct Bilirubin AST ALT Alkaline Phosphatase Lactate Dehydrogenase Troponin T C-Reactive Protein Total Protein Albumin Prealbumin Triglycerides Cholesterol LDL Cholesterol Direct HDL Cholesterol PTH Intact Urine pH Urine WBC (Auto) Urine Creatinine Urine Total Protein Fluid Total Protein Vancomycin Trough Rheumatoid Factor Complement C4 Miscellaneous Test Crossmatch 11/30/16 11/30/16 11/30/16 05:45 11:10 17:26 WBC RBC Hgb Hct MCV MCH MCHC RDW Plt Count Lymph % (Auto) [place] % (Auto) Lymph # [place] # Baso # Seg Neutrophils % Seg Neuts % (Manual) Lymphocytes % (Manual) Monocytes % (Manual) Eosinophils % (Manual) Basophils % (Manual) Nucleated RBC % Seg Neutrophils # Seg Neutrophils # Man Lymphocytes # (Manual) Monocytes # (Manual) Eosinophils # (Manual) Basophils # (Manual) PT INR Fibrinogen dRVVT Confirm Interp Factor V Activity POC ABG pH POC ABG pCO2 POC ABG pO2 ABG pO2 ABG HCO3 ABG Base Excess ABG Hemoglobin Oxyhemoglobin Sodium Potassium Chloride Carbon Dioxide BUN 45 H Creatinine 1.6 H Glucose 131 H POC Glucose 146 H 134 H Lactic Acid Calcium Phosphorus Magnesium Direct Bilirubin AST ALT Alkaline Phosphatase Lactate Dehydrogenase Troponin T C-Reactive Protein Total Protein Albumin Prealbumin Triglycerides Cholesterol LDL Cholesterol Direct HDL Cholesterol PTH Intact Urine pH Urine WBC (Auto) Urine Creatinine Urine Total Protein Fluid Total Protein Vancomycin Trough Rheumatoid Factor Complement C4 Miscellaneous Test Crossmatch 11/30/16 12/01/16 12/01/16 23:35 00:06 03:35 WBC RBC Hgb Hct MCV MCH MCHC RDW Plt Count Lymph % (Auto) [place] % (Auto) Lymph # [place] # Baso # Seg Neutrophils % Seg Neuts % (Manual) Lymphocytes % (Manual) Monocytes % (Manual) Eosinophils % (Manual) Basophils % (Manual) Nucleated RBC % Seg Neutrophils # Seg Neutrophils # Man Lymphocytes # (Manual) Monocytes # (Manual) Eosinophils # (Manual) Basophils # (Manual) PT INR Fibrinogen dRVVT Confirm Interp Factor V Activity POC ABG pH POC ABG pCO2 POC ABG pO2 ABG pO2 ABG HCO3 ABG Base Excess ABG Hemoglobin 6.9 L Oxyhemoglobin Sodium Potassium Chloride Carbon Dioxide BUN 58 H Creatinine 1.8 H Glucose 146 H POC Glucose 151 H Lactic Acid Calcium Phosphorus Magnesium Direct Bilirubin AST ALT Alkaline Phosphatase Lactate Dehydrogenase Troponin T C-Reactive Protein Total Protein Albumin Prealbumin Triglycerides Cholesterol LDL Cholesterol Direct HDL Cholesterol PTH Intact Urine pH Urine WBC (Auto) Urine Creatinine Urine Total Protein Fluid Total Protein Vancomycin Trough Rheumatoid Factor Complement C4 Miscellaneous Test Crossmatch 12/01/16 12/01/16 12/01/16 03:35 05:47 11:52 WBC 12.3 H RBC 2.82 L Hgb 7.8 L Hct 23.7 L MCV MCH MCHC RDW 16.7 H Plt Count Lymph % (Auto) [place] % (Auto) 9.8 H Lymph # [place] # 1.2 H Baso # Seg Neutrophils % Seg Neuts % (Manual) Lymphocytes % (Manual) Monocytes % (Manual) Eosinophils % (Manual) Basophils % (Manual) Nucleated RBC % Seg Neutrophils # 8.4 H Seg Neutrophils # Man Lymphocytes # (Manual) Monocytes # (Manual) Eosinophils # (Manual) Basophils # (Manual) PT INR Fibrinogen dRVVT Confirm Interp Factor V Activity POC ABG pH POC ABG pCO2 POC ABG pO2 ABG pO2 ABG HCO3 ABG Base Excess ABG Hemoglobin Oxyhemoglobin Sodium Potassium Chloride Carbon Dioxide BUN Creatinine Glucose POC Glucose 152 H 152 H Lactic Acid Calcium Phosphorus Magnesium Direct Bilirubin AST ALT Alkaline Phosphatase Lactate Dehydrogenase Troponin T C-Reactive Protein Total Protein Albumin Prealbumin Triglycerides Cholesterol LDL Cholesterol Direct HDL Cholesterol PTH Intact Urine pH Urine WBC (Auto) Urine Creatinine Urine Total Protein Fluid Total Protein Vancomycin Trough Rheumatoid Factor Complement C4 Miscellaneous Test Crossmatch 12/01/16 12/01/16 12/02/16 17:40 23:41 05:00 WBC RBC Hgb Hct MCV MCH MCHC RDW Plt Count Lymph % (Auto) [place] % (Auto) Lymph # [place] # Baso # Seg Neutrophils % Seg Neuts % (Manual) Lymphocytes % (Manual) Monocytes % (Manual) Eosinophils % (Manual) Basophils % (Manual) Nucleated RBC % Seg Neutrophils # Seg Neutrophils # Man Lymphocytes # (Manual) Monocytes # (Manual) Eosinophils # (Manual) Basophils # (Manual) PT INR Fibrinogen dRVVT Confirm Interp Factor V Activity POC ABG pH POC ABG pCO2 POC ABG pO2 ABG pO2 ABG HCO3 ABG Base Excess ABG Hemoglobin Oxyhemoglobin Sodium Potassium Chloride Carbon Dioxide BUN 45 H Creatinine Glucose 115 H POC Glucose 140 H 144 H Lactic Acid Calcium Phosphorus Magnesium Direct Bilirubin AST ALT Alkaline Phosphatase Lactate Dehydrogenase Troponin T C-Reactive Protein Total Protein Albumin Prealbumin Triglycerides Cholesterol LDL Cholesterol Direct HDL Cholesterol PTH Intact Urine pH Urine WBC (Auto) Urine Creatinine Urine Total Protein Fluid Total Protein Vancomycin Trough Rheumatoid Factor Complement C4 Miscellaneous Test Crossmatch 12/02/16 12/02/16 12/02/16 05:31 11:20 17:38 WBC RBC Hgb Hct MCV MCH MCHC RDW Plt Count Lymph % (Auto) [place] % (Auto) Lymph # [place] # Baso # Seg Neutrophils % Seg Neuts % (Manual) Lymphocytes % (Manual) Monocytes % (Manual) Eosinophils % (Manual) Basophils % (Manual) Nucleated RBC % Seg Neutrophils # Seg Neutrophils # Man Lymphocytes # (Manual) Monocytes # (Manual) Eosinophils # (Manual) Basophils # (Manual) PT INR Fibrinogen dRVVT Confirm Interp Factor V Activity POC ABG pH POC ABG pCO2 POC ABG pO2 ABG pO2 ABG HCO3 ABG Base Excess ABG Hemoglobin Oxyhemoglobin Sodium Potassium Chloride Carbon Dioxide BUN Creatinine Glucose POC Glucose 136 H 177 H 139 H Lactic Acid Calcium Phosphorus Magnesium Direct Bilirubin AST ALT Alkaline Phosphatase Lactate Dehydrogenase Troponin T C-Reactive Protein Total Protein Albumin Prealbumin Triglycerides Cholesterol LDL Cholesterol Direct HDL Cholesterol PTH Intact Urine pH Urine WBC (Auto) Urine Creatinine Urine Total Protein Fluid Total Protein Vancomycin Trough Rheumatoid Factor Complement C4 Miscellaneous Test Crossmatch 12/02/16 12/03/16 12/03/16 23:43 04:00 04:00 WBC 20.4 H RBC 2.74 L Hgb 7.4 L Hct 23.6 L MCV MCH 27 L MCHC RDW 17.1 H Plt Count Lymph % (Auto) [place] % (Auto) Lymph # [place] # Baso # Seg Neutrophils % Seg Neuts % (Manual) 31.0 L Lymphocytes % (Manual) Monocytes % (Manual) Eosinophils % (Manual) Basophils % (Manual) Nucleated RBC % Seg Neutrophils # Seg Neutrophils # Man Lymphocytes # (Manual) Monocytes # (Manual) Eosinophils # (Manual) Basophils # (Manual) PT INR Fibrinogen dRVVT Confirm Interp Factor V Activity POC ABG pH POC ABG pCO2 POC ABG pO2 ABG pO2 ABG HCO3 ABG Base Excess ABG Hemoglobin Oxyhemoglobin Sodium Potassium Chloride Carbon Dioxide BUN 61 H Creatinine 1.6 H Glucose 119 H POC Glucose 158 H Lactic Acid Calcium Phosphorus Magnesium Direct Bilirubin AST ALT Alkaline Phosphatase Lactate Dehydrogenase Troponin T C-Reactive Protein Total Protein Albumin Prealbumin Triglycerides Cholesterol LDL Cholesterol Direct HDL Cholesterol PTH Intact Urine pH Urine WBC (Auto) Urine Creatinine Urine Total Protein Fluid Total Protein Vancomycin Trough Rheumatoid Factor Complement C4 Miscellaneous Test Crossmatch 12/03/16 12/03/16 12/03/16 05:02 12:11 18:16 WBC RBC Hgb Hct MCV MCH MCHC RDW Plt Count Lymph % (Auto) [place] % (Auto) Lymph # [place] # Baso # Seg Neutrophils % Seg Neuts % (Manual) Lymphocytes % (Manual) Monocytes % (Manual) Eosinophils % (Manual) Basophils % (Manual) Nucleated RBC % Seg Neutrophils # Seg Neutrophils # Man Lymphocytes # (Manual) Monocytes # (Manual) Eosinophils # (Manual) Basophils # (Manual) PT INR Fibrinogen dRVVT Confirm Interp Factor V Activity POC ABG pH POC ABG pCO2 POC ABG pO2 ABG pO2 ABG HCO3 ABG Base Excess ABG Hemoglobin Oxyhemoglobin Sodium Potassium Chloride Carbon Dioxide BUN Creatinine Glucose POC Glucose 146 H 157 H 124 H Lactic Acid Calcium Phosphorus Magnesium Direct Bilirubin AST ALT Alkaline Phosphatase Lactate Dehydrogenase Troponin T C-Reactive Protein Total Protein Albumin Prealbumin Triglycerides Cholesterol LDL Cholesterol Direct HDL Cholesterol PTH Intact Urine pH Urine WBC (Auto) Urine Creatinine Urine Total Protein Fluid Total Protein Vancomycin Trough Rheumatoid Factor Complement C4 Miscellaneous Test Crossmatch 12/03/16 12/04/16 12/04/16 23:41 04:00 04:45 WBC RBC Hgb Hct MCV MCH MCHC RDW Plt Count Lymph % (Auto) [place] % (Auto) Lymph # [place] # Baso # Seg Neutrophils % Seg Neuts % (Manual) Lymphocytes % (Manual) Monocytes % (Manual) Eosinophils % (Manual) Basophils % (Manual) Nucleated RBC % Seg Neutrophils # Seg Neutrophils # Man Lymphocytes # (Manual) Monocytes # (Manual) Eosinophils # (Manual) Basophils # (Manual) PT INR Fibrinogen dRVVT Confirm Interp Factor V Activity POC ABG pH POC ABG pCO2 POC ABG pO2 ABG pO2 ABG HCO3 ABG Base Excess ABG Hemoglobin Oxyhemoglobin Sodium Potassium Chloride Carbon Dioxide BUN 76 H Creatinine 1.6 H Glucose POC Glucose 130 H 136 H Lactic Acid Calcium Phosphorus Magnesium Direct Bilirubin AST ALT Alkaline Phosphatase 155 H Lactate Dehydrogenase Troponin T C-Reactive Protein Total Protein 5.5 L Albumin 1.5 L Prealbumin Triglycerides Cholesterol LDL Cholesterol Direct HDL Cholesterol PTH Intact Urine pH Urine WBC (Auto) Urine Creatinine Urine Total Protein Fluid Total Protein Vancomycin Trough Rheumatoid Factor Complement C4 Miscellaneous Test Crossmatch 12/04/16 12/04/16 12/05/16 12:08 17:23 00:10 WBC RBC Hgb Hct MCV MCH MCHC RDW Plt Count Lymph % (Auto) [place] % (Auto) Lymph # [place] # Baso # Seg Neutrophils % Seg Neuts % (Manual) Lymphocytes % (Manual) Monocytes % (Manual) Eosinophils % (Manual) Basophils % (Manual) Nucleated RBC % Seg Neutrophils # Seg Neutrophils # Man Lymphocytes # (Manual) Monocytes # (Manual) Eosinophils # (Manual) Basophils # (Manual) PT INR Fibrinogen dRVVT Confirm Interp Factor V Activity POC ABG pH POC ABG pCO2 POC ABG pO2 ABG pO2 ABG HCO3 ABG Base Excess ABG Hemoglobin Oxyhemoglobin Sodium Potassium Chloride Carbon Dioxide BUN Creatinine Glucose POC Glucose 114 H 129 H 124 H Lactic Acid Calcium Phosphorus Magnesium Direct Bilirubin AST ALT Alkaline Phosphatase Lactate Dehydrogenase Troponin T C-Reactive Protein Total Protein Albumin Prealbumin Triglycerides Cholesterol LDL Cholesterol Direct HDL Cholesterol PTH Intact Urine pH Urine WBC (Auto) Urine Creatinine Urine Total Protein Fluid Total Protein Vancomycin Trough Rheumatoid Factor Complement C4 Miscellaneous Test Crossmatch 12/05/16 12/05/16 12/05/16 05:00 05:00 05:18 WBC RBC Hgb Hct MCV MCH MCHC RDW Plt Count Lymph % (Auto) [place] % (Auto) Lymph # [place] # Baso # Seg Neutrophils % Seg Neuts % (Manual) Lymphocytes % (Manual) Monocytes % (Manual) Eosinophils % (Manual) Basophils % (Manual) Nucleated RBC % Seg Neutrophils # Seg Neutrophils # Man Lymphocytes # (Manual) Monocytes # (Manual) Eosinophils # (Manual) Basophils # (Manual) PT INR Fibrinogen dRVVT Confirm Interp Factor V Activity POC ABG pH POC ABG pCO2 POC ABG pO2 ABG pO2 ABG HCO3 ABG Base Excess ABG Hemoglobin Oxyhemoglobin Sodium Potassium Chloride Carbon Dioxide 21 L BUN 85 H Creatinine 1.9 H Glucose 131 H POC Glucose 154 H Lactic Acid Calcium Phosphorus Magnesium Direct Bilirubin AST ALT Alkaline Phosphatase Lactate Dehydrogenase Troponin T C-Reactive Protein 19.30 H Total Protein Albumin Prealbumin Triglycerides Cholesterol LDL Cholesterol Direct HDL Cholesterol PTH Intact Urine pH Urine WBC (Auto) Urine Creatinine Urine Total Protein Fluid Total Protein Vancomycin Trough Rheumatoid Factor Complement C4 Miscellaneous Test Crossmatch 12/05/16 12/05/16 12/05/16 11:43 17:46 23:25 WBC RBC Hgb Hct MCV MCH MCHC RDW Plt Count Lymph % (Auto) [place] % (Auto) Lymph # [place] # Baso # Seg Neutrophils % Seg Neuts % (Manual) Lymphocytes % (Manual) Monocytes % (Manual) Eosinophils % (Manual) Basophils % (Manual) Nucleated RBC % Seg Neutrophils # Seg Neutrophils # Man Lymphocytes # (Manual) Monocytes # (Manual) Eosinophils # (Manual) Basophils # (Manual) PT INR Fibrinogen dRVVT Confirm Interp Factor V Activity POC ABG pH POC ABG pCO2 POC ABG pO2 ABG pO2 ABG HCO3 ABG Base Excess ABG Hemoglobin Oxyhemoglobin Sodium Potassium Chloride Carbon Dioxide BUN Creatinine Glucose POC Glucose 117 H 113 H 111 H Lactic Acid Calcium Phosphorus Magnesium Direct Bilirubin AST ALT Alkaline Phosphatase Lactate Dehydrogenase Troponin T C-Reactive Protein Total Protein Albumin Prealbumin Triglycerides Cholesterol LDL Cholesterol Direct HDL Cholesterol PTH Intact Urine pH Urine WBC (Auto) Urine Creatinine Urine Total Protein Fluid Total Protein Vancomycin Trough Rheumatoid Factor Complement C4 Miscellaneous Test Crossmatch 12/05/16 12/06/16 12/06/16 Unknown 04:58 06:00 WBC RBC Hgb Hct MCV MCH MCHC RDW Plt Count Lymph % (Auto) [place] % (Auto) Lymph # [place] # Baso # Seg Neutrophils % Seg Neuts % (Manual) Lymphocytes % (Manual) Monocytes % (Manual) Eosinophils % (Manual) Basophils % (Manual) Nucleated RBC % Seg Neutrophils # Seg Neutrophils # Man Lymphocytes # (Manual) Monocytes # (Manual) Eosinophils # (Manual) Basophils # (Manual) PT INR Fibrinogen dRVVT Confirm Interp Factor V Activity POC ABG pH POC ABG pCO2 POC ABG pO2 ABG pO2 75.2 L ABG HCO3 ABG Base Excess -3.4 L ABG Hemoglobin 7.4 L Oxyhemoglobin 94.5 L Sodium Potassium Chloride Carbon Dioxide 20 L BUN 99 H Creatinine 2.1 H Glucose 126 H POC Glucose 145 H Lactic Acid Calcium Phosphorus 4.80 H Magnesium Direct Bilirubin AST ALT Alkaline Phosphatase Lactate Dehydrogenase Troponin T C-Reactive Protein Total Protein Albumin Prealbumin Triglycerides Cholesterol LDL Cholesterol Direct HDL Cholesterol PTH Intact Urine pH Urine WBC (Auto) Urine Creatinine Urine Total Protein Fluid Total Protein Vancomycin Trough Rheumatoid Factor Complement C4 Miscellaneous Test Crossmatch 12/06/16 12/06/16 12/06/16 06:46 11:54 17:55 WBC RBC Hgb 8.3 L Hct 26.4 L MCV MCH MCHC RDW Plt Count Lymph % (Auto) [place] % (Auto) Lymph # [place] # Baso # Seg Neutrophils % Seg Neuts % (Manual) Lymphocytes % (Manual) Monocytes % (Manual) Eosinophils % (Manual) Basophils % (Manual) Nucleated RBC % Seg Neutrophils # Seg Neutrophils # Man Lymphocytes # (Manual) Monocytes # (Manual) Eosinophils # (Manual) Basophils # (Manual) PT INR Fibrinogen dRVVT Confirm Interp Factor V Activity POC ABG pH POC ABG pCO2 POC ABG pO2 ABG pO2 ABG HCO3 ABG Base Excess ABG Hemoglobin Oxyhemoglobin Sodium Potassium Chloride Carbon Dioxide BUN Creatinine Glucose POC Glucose 126 H 157 H Lactic Acid Calcium Phosphorus Magnesium Direct Bilirubin AST ALT Alkaline Phosphatase Lactate Dehydrogenase Troponin T C-Reactive Protein Total Protein Albumin Prealbumin Triglycerides Cholesterol LDL Cholesterol Direct HDL Cholesterol PTH Intact Urine pH Urine WBC (Auto) Urine Creatinine Urine Total Protein Fluid Total Protein Vancomycin Trough Rheumatoid Factor Complement C4 Miscellaneous Test Crossmatch 12/06/16 12/07/16 12/07/16 23:59 05:34 06:30 WBC RBC Hgb Hct MCV MCH MCHC RDW Plt Count Lymph % (Auto) [place] % (Auto) Lymph # [place] # Baso # Seg Neutrophils % Seg Neuts % (Manual) Lymphocytes % (Manual) Monocytes % (Manual) Eosinophils % (Manual) Basophils % (Manual) Nucleated RBC % Seg Neutrophils # Seg Neutrophils # Man Lymphocytes # (Manual) Monocytes # (Manual) Eosinophils # (Manual) Basophils # (Manual) PT INR Fibrinogen dRVVT Confirm Interp Factor V Activity POC ABG pH POC ABG pCO2 POC ABG pO2 ABG pO2 ABG HCO3 ABG Base Excess ABG Hemoglobin Oxyhemoglobin Sodium Potassium Chloride Carbon Dioxide BUN 67 H Creatinine 1.4 H Glucose 126 H POC Glucose 129 H 129 H Lactic Acid Calcium Phosphorus Magnesium Direct Bilirubin AST ALT Alkaline Phosphatase Lactate Dehydrogenase Troponin T C-Reactive Protein Total Protein Albumin Prealbumin Triglycerides Cholesterol LDL Cholesterol Direct HDL Cholesterol PTH Intact Urine pH Urine WBC (Auto) Urine Creatinine Urine Total Protein Fluid Total Protein Vancomycin Trough Rheumatoid Factor Complement C4 Miscellaneous Test Crossmatch 12/07/16 12/07/16 12/07/16 06:30 08:00 09:45 WBC 18.8 H RBC 2.52 L Hgb 6.9 L 6.8 L Hct 21.2 L 21.1 L MCV MCH 27 L MCHC RDW 18.0 H Plt Count Lymph % (Auto) [place] % (Auto) 9.9 H Lymph # [place] # 1.9 H Baso # Seg Neutrophils % 71.8 H Seg Neuts % (Manual) Lymphocytes % (Manual) Monocytes % (Manual) Eosinophils % (Manual) Basophils % (Manual) Nucleated RBC % Seg Neutrophils # 13.5 H Seg Neutrophils # Man Lymphocytes # (Manual) Monocytes # (Manual) Eosinophils # (Manual) Basophils # (Manual) PT INR Fibrinogen dRVVT Confirm Interp Factor V Activity POC ABG pH POC ABG pCO2 POC ABG pO2 ABG pO2 ABG HCO3 ABG Base Excess ABG Hemoglobin Oxyhemoglobin Sodium Potassium Chloride Carbon Dioxide BUN Creatinine Glucose POC Glucose Lactic Acid Calcium Phosphorus Magnesium Direct Bilirubin AST ALT Alkaline Phosphatase Lactate Dehydrogenase Troponin T C-Reactive Protein Total Protein Albumin Prealbumin Triglycerides Cholesterol LDL Cholesterol Direct HDL Cholesterol PTH Intact Urine pH Urine WBC (Auto) Urine Creatinine Urine Total Protein Fluid Total Protein Vancomycin Trough Rheumatoid Factor Complement C4 Miscellaneous Test Crossmatch See Detail 12/07/16 12/07/16 12/07/16 11:44 18:19 23:59 WBC RBC Hgb Hct MCV MCH MCHC RDW Plt Count Lymph % (Auto) [place] % (Auto) Lymph # [place] # Baso # Seg Neutrophils % Seg Neuts % (Manual) Lymphocytes % (Manual) Monocytes % (Manual) Eosinophils % (Manual) Basophils % (Manual) Nucleated RBC % Seg Neutrophils # Seg Neutrophils # Man Lymphocytes # (Manual) Monocytes # (Manual) Eosinophils # (Manual) Basophils # (Manual) PT INR Fibrinogen dRVVT Confirm Interp Factor V Activity POC ABG pH POC ABG pCO2 POC ABG pO2 ABG pO2 ABG HCO3 ABG Base Excess ABG Hemoglobin Oxyhemoglobin Sodium Potassium Chloride Carbon Dioxide BUN Creatinine Glucose POC Glucose 137 H 138 H 133 H Lactic Acid Calcium Phosphorus Magnesium Direct Bilirubin AST ALT Alkaline Phosphatase Lactate Dehydrogenase Troponin T C-Reactive Protein Total Protein Albumin Prealbumin Triglycerides Cholesterol LDL Cholesterol Direct HDL Cholesterol PTH Intact Urine pH Urine WBC (Auto) Urine Creatinine Urine Total Protein Fluid Total Protein Vancomycin Trough Rheumatoid Factor Complement C4 Miscellaneous Test Crossmatch 12/08/16 12/08/16 12/08/16 05:25 05:30 05:30 WBC 23.8 H RBC 2.88 L Hgb 8.1 L Hct 24.3 L MCV MCH MCHC RDW 16.7 H Plt Count Lymph % (Auto) [place] % (Auto) Lymph # [place] # Baso # Seg Neutrophils % Seg Neuts % (Manual) 76.0 H Lymphocytes % (Manual) 9.0 L Monocytes % (Manual) 9.0 H Eosinophils % (Manual) Basophils % (Manual) Nucleated RBC % Seg Neutrophils # Seg Neutrophils # Man 18.1 H Lymphocytes # (Manual) Monocytes # (Manual) 2.1 H Eosinophils # (Manual) Basophils # (Manual) PT INR Fibrinogen dRVVT Confirm Interp Factor V Activity POC ABG pH POC ABG pCO2 POC ABG pO2 ABG pO2 ABG HCO3 ABG Base Excess ABG Hemoglobin Oxyhemoglobin Sodium Potassium Chloride Carbon Dioxide 21 L BUN 76 H Creatinine 1.6 H Glucose 133 H POC Glucose 177 H Lactic Acid Calcium Phosphorus Magnesium Direct Bilirubin AST ALT Alkaline Phosphatase Lactate Dehydrogenase Troponin T C-Reactive Protein Total Protein Albumin Prealbumin Triglycerides Cholesterol LDL Cholesterol Direct HDL Cholesterol PTH Intact Urine pH Urine WBC (Auto) Urine Creatinine Urine Total Protein Fluid Total Protein Vancomycin Trough Rheumatoid Factor Complement C4 Miscellaneous Test Crossmatch 12/08/16 12/08/16 12/09/16 11:45 18:00 00:00 WBC RBC Hgb Hct MCV MCH MCHC RDW Plt Count Lymph % (Auto) [place] % (Auto) Lymph # [place] # Baso # Seg Neutrophils % Seg Neuts % (Manual) Lymphocytes % (Manual) Monocytes % (Manual) Eosinophils % (Manual) Basophils % (Manual) Nucleated RBC % Seg Neutrophils # Seg Neutrophils # Man Lymphocytes # (Manual) Monocytes # (Manual) Eosinophils # (Manual) Basophils # (Manual) PT INR Fibrinogen dRVVT Confirm Interp Factor V Activity POC ABG pH POC ABG pCO2 POC ABG pO2 ABG pO2 ABG HCO3 ABG Base Excess ABG Hemoglobin Oxyhemoglobin Sodium Potassium Chloride Carbon Dioxide BUN Creatinine Glucose POC Glucose 163 H 123 H 137 H Lactic Acid Calcium Phosphorus Magnesium Direct Bilirubin AST ALT Alkaline Phosphatase Lactate Dehydrogenase Troponin T C-Reactive Protein Total Protein Albumin Prealbumin Triglycerides Cholesterol LDL Cholesterol Direct HDL Cholesterol PTH Intact Urine pH Urine WBC (Auto) Urine Creatinine Urine Total Protein Fluid Total Protein Vancomycin Trough Rheumatoid Factor Complement C4 Miscellaneous Test Crossmatch 12/09/16 12/09/16 12/09/16 05:34 06:00 06:00 WBC 15.5 H RBC 2.87 L Hgb 8.0 L Hct 24.2 L MCV MCH MCHC RDW 17.2 H Plt Count Lymph % (Auto) [place] % (Auto) 11.6 H Lymph # [place] # 1.8 H Baso # Seg Neutrophils % 70.8 H Seg Neuts % (Manual) Lymphocytes % (Manual) Monocytes % (Manual) Eosinophils % (Manual) Basophils % (Manual) Nucleated RBC % Seg Neutrophils # 11.0 H Seg Neutrophils # Man Lymphocytes # (Manual) Monocytes # (Manual) Eosinophils # (Manual) Basophils # (Manual) PT INR Fibrinogen dRVVT Confirm Interp Factor V Activity POC ABG pH POC ABG pCO2 POC ABG pO2 ABG pO2 ABG HCO3 ABG Base Excess ABG Hemoglobin Oxyhemoglobin Sodium Potassium Chloride Carbon Dioxide BUN 51 H Creatinine Glucose 117 H POC Glucose 136 H Lactic Acid Calcium Phosphorus Magnesium Direct Bilirubin AST ALT Alkaline Phosphatase Lactate Dehydrogenase Troponin T C-Reactive Protein Total Protein Albumin Prealbumin Triglycerides Cholesterol LDL Cholesterol Direct HDL Cholesterol PTH Intact Urine pH Urine WBC (Auto) Urine Creatinine Urine Total Protein Fluid Total Protein Vancomycin Trough Rheumatoid Factor Complement C4 Miscellaneous Test Crossmatch 12/09/16 12/09/16 12/09/16 12:29 17:52 23:10 WBC RBC Hgb Hct MCV MCH MCHC RDW Plt Count Lymph % (Auto) [place] % (Auto) Lymph # [place] # Baso # Seg Neutrophils % Seg Neuts % (Manual) Lymphocytes % (Manual) Monocytes % (Manual) Eosinophils % (Manual) Basophils % (Manual) Nucleated RBC % Seg Neutrophils # Seg Neutrophils # Man Lymphocytes # (Manual) Monocytes # (Manual) Eosinophils # (Manual) Basophils # (Manual) PT INR Fibrinogen dRVVT Confirm Interp Factor V Activity POC ABG pH POC ABG pCO2 POC ABG pO2 ABG pO2 ABG HCO3 ABG Base Excess ABG Hemoglobin Oxyhemoglobin Sodium Potassium Chloride Carbon Dioxide BUN Creatinine Glucose POC Glucose 139 H 140 H 129 H Lactic Acid Calcium Phosphorus Magnesium Direct Bilirubin AST ALT Alkaline Phosphatase Lactate Dehydrogenase Troponin T C-Reactive Protein Total Protein Albumin Prealbumin Triglycerides Cholesterol LDL Cholesterol Direct HDL Cholesterol PTH Intact Urine pH Urine WBC (Auto) Urine Creatinine Urine Total Protein Fluid Total Protein Vancomycin Trough Rheumatoid Factor Complement C4 Miscellaneous Test Crossmatch 12/10/16 12/10/16 12/10/16 05:00 05:00 06:54 WBC 15.7 H RBC 2.87 L Hgb 8.2 L Hct 24.4 L MCV MCH MCHC RDW 17.2 H Plt Count Lymph % (Auto) [place] % (Auto) 8.3 H Lymph # [place] # 1.3 H Baso # Seg Neutrophils % 72.8 H Seg Neuts % (Manual) Lymphocytes % (Manual) Monocytes % (Manual) Eosinophils % (Manual) Basophils % (Manual) Nucleated RBC % Seg Neutrophils # 11.4 H Seg Neutrophils # Man Lymphocytes # (Manual) Monocytes # (Manual) Eosinophils # (Manual) Basophils # (Manual) PT INR Fibrinogen dRVVT Confirm Interp Factor V Activity POC ABG pH POC ABG pCO2 POC ABG pO2 ABG pO2 ABG HCO3 ABG Base Excess ABG Hemoglobin Oxyhemoglobin Sodium Potassium Chloride Carbon Dioxide BUN 64 H Creatinine 1.4 H Glucose 134 H POC Glucose 154 H Lactic Acid Calcium Phosphorus Magnesium Direct Bilirubin AST ALT Alkaline Phosphatase Lactate Dehydrogenase Troponin T C-Reactive Protein Total Protein Albumin Prealbumin Triglycerides Cholesterol LDL Cholesterol Direct HDL Cholesterol PTH Intact Urine pH Urine WBC (Auto) Urine Creatinine Urine Total Protein Fluid Total Protein Vancomycin Trough Rheumatoid Factor Complement C4 Miscellaneous Test Crossmatch 12/10/16 12/10/16 12/10/16 11:58 17:29 23:52 WBC RBC Hgb Hct MCV MCH MCHC RDW Plt Count Lymph % (Auto) [place] % (Auto) Lymph # [place] # Baso # Seg Neutrophils % Seg Neuts % (Manual) Lymphocytes % (Manual) Monocytes % (Manual) Eosinophils % (Manual) Basophils % (Manual) Nucleated RBC % Seg Neutrophils # Seg Neutrophils # Man Lymphocytes # (Manual) Monocytes # (Manual) Eosinophils # (Manual) Basophils # (Manual) PT INR Fibrinogen dRVVT Confirm Interp Factor V Activity POC ABG pH POC ABG pCO2 POC ABG pO2 ABG pO2 ABG HCO3 ABG Base Excess ABG Hemoglobin Oxyhemoglobin Sodium Potassium Chloride Carbon Dioxide BUN Creatinine Glucose POC Glucose 144 H 163 H 125 H Lactic Acid Calcium Phosphorus Magnesium Direct Bilirubin AST ALT Alkaline Phosphatase Lactate Dehydrogenase Troponin T C-Reactive Protein Total Protein Albumin Prealbumin Triglycerides Cholesterol LDL Cholesterol Direct HDL Cholesterol PTH Intact Urine pH Urine WBC (Auto) Urine Creatinine Urine Total Protein Fluid Total Protein Vancomycin Trough Rheumatoid Factor Complement C4 Miscellaneous Test Crossmatch 12/11/16 12/11/16 12/11/16 05:38 06:30 06:30 WBC 14.4 H RBC 2.76 L Hgb 7.7 L Hct 23.4 L MCV MCH MCHC RDW 17.2 H Plt Count Lymph % (Auto) [place] % (Auto) 8.8 H Lymph # [place] # 1.3 H Baso # Seg Neutrophils % 72.5 H Seg Neuts % (Manual) Lymphocytes % (Manual) Monocytes % (Manual) Eosinophils % (Manual) Basophils % (Manual) Nucleated RBC % Seg Neutrophils # 10.5 H Seg Neutrophils # Man Lymphocytes # (Manual) Monocytes # (Manual) Eosinophils # (Manual) Basophils # (Manual) PT INR Fibrinogen dRVVT Confirm Interp Factor V Activity POC ABG pH POC ABG pCO2 POC ABG pO2 ABG pO2 ABG HCO3 ABG Base Excess ABG Hemoglobin Oxyhemoglobin Sodium Potassium Chloride Carbon Dioxide BUN 43 H Creatinine Glucose 124 H POC Glucose 141 H Lactic Acid Calcium 8.3 L Phosphorus Magnesium 1.60 L Direct Bilirubin AST ALT Alkaline Phosphatase Lactate Dehydrogenase Troponin T C-Reactive Protein Total Protein Albumin Prealbumin Triglycerides Cholesterol LDL Cholesterol Direct HDL Cholesterol PTH Intact Urine pH Urine WBC (Auto) Urine Creatinine Urine Total Protein Fluid Total Protein Vancomycin Trough Rheumatoid Factor Complement C4 Miscellaneous Test Crossmatch 12/11/16 12/11/16 12/11/16 11:15 17:59 23:48 WBC RBC Hgb Hct MCV MCH MCHC RDW Plt Count Lymph % (Auto) [place] % (Auto) Lymph # [place] # Baso # Seg Neutrophils % Seg Neuts % (Manual) Lymphocytes % (Manual) Monocytes % (Manual) Eosinophils % (Manual) Basophils % (Manual) Nucleated RBC % Seg Neutrophils # Seg Neutrophils # Man Lymphocytes # (Manual) Monocytes # (Manual) Eosinophils # (Manual) Basophils # (Manual) PT INR Fibrinogen dRVVT Confirm Interp Factor V Activity POC ABG pH POC ABG pCO2 POC ABG pO2 ABG pO2 ABG HCO3 ABG Base Excess ABG Hemoglobin Oxyhemoglobin Sodium Potassium Chloride Carbon Dioxide BUN Creatinine Glucose POC Glucose 188 H 106 H 119 H Lactic Acid Calcium Phosphorus Magnesium Direct Bilirubin AST ALT Alkaline Phosphatase Lactate Dehydrogenase Troponin T C-Reactive Protein Total Protein Albumin Prealbumin Triglycerides Cholesterol LDL Cholesterol Direct HDL Cholesterol PTH Intact Urine pH Urine WBC (Auto) Urine Creatinine Urine Total Protein Fluid Total Protein Vancomycin Trough Rheumatoid Factor Complement C4 Miscellaneous Test Crossmatch 12/12/16 12/12/16 12/12/16 05:00 06:01 12:20 WBC 16.7 H RBC 2.87 L Hgb 8.0 L Hct 24.2 L MCV MCH MCHC RDW 17.6 H Plt Count Lymph % (Auto) [place] % (Auto) Lymph # [place] # 1.2 H Baso # Seg Neutrophils % 75.3 H Seg Neuts % (Manual) Lymphocytes % (Manual) Monocytes % (Manual) Eosinophils % (Manual) Basophils % (Manual) Nucleated RBC % Seg Neutrophils # 12.6 H Seg Neutrophils # Man Lymphocytes # (Manual) Monocytes # (Manual) Eosinophils # (Manual) Basophils # (Manual) PT INR Fibrinogen dRVVT Confirm Interp Factor V Activity POC ABG pH POC ABG pCO2 POC ABG pO2 ABG pO2 ABG HCO3 ABG Base Excess ABG Hemoglobin Oxyhemoglobin Sodium Potassium Chloride Carbon Dioxide BUN Creatinine Glucose POC Glucose 134 H 149 H Lactic Acid Calcium Phosphorus Magnesium Direct Bilirubin AST ALT Alkaline Phosphatase Lactate Dehydrogenase Troponin T C-Reactive Protein Total Protein Albumin Prealbumin Triglycerides Cholesterol LDL Cholesterol Direct HDL Cholesterol PTH Intact Urine pH Urine WBC (Auto) Urine Creatinine Urine Total Protein Fluid Total Protein Vancomycin Trough Rheumatoid Factor Complement C4 Miscellaneous Test Crossmatch 12/12/16 12/12/16 12/12/16 17:38 23:01 Unknown WBC RBC Hgb Hct MCV MCH MCHC RDW Plt Count Lymph % (Auto) [place] % (Auto) Lymph # [place] # Baso # Seg Neutrophils % Seg Neuts % (Manual) Lymphocytes % (Manual) Monocytes % (Manual) Eosinophils % (Manual) Basophils % (Manual) Nucleated RBC % Seg Neutrophils # Seg Neutrophils # Man Lymphocytes # (Manual) Monocytes # (Manual) Eosinophils # (Manual) Basophils # (Manual) PT INR Fibrinogen dRVVT Confirm Interp Factor V Activity POC ABG pH POC ABG pCO2 POC ABG pO2 ABG pO2 ABG HCO3 ABG Base Excess ABG Hemoglobin Oxyhemoglobin Sodium Potassium Chloride Carbon Dioxide BUN 60 H Creatinine 1.3 H Glucose 126 H POC Glucose 127 H 144 H Lactic Acid Calcium Phosphorus Magnesium Direct Bilirubin AST ALT Alkaline Phosphatase Lactate Dehydrogenase Troponin T C-Reactive Protein Total Protein Albumin Prealbumin Triglycerides Cholesterol LDL Cholesterol Direct HDL Cholesterol PTH Intact Urine pH Urine WBC (Auto) Urine Creatinine Urine Total Protein Fluid Total Protein Vancomycin Trough Rheumatoid Factor Complement C4 Miscellaneous Test Crossmatch 12/13/16 12/13/16 12/13/16 04:00 04:00 05:19 WBC 18.7 H RBC 2.89 L Hgb 8.3 L Hct 24.6 L MCV MCH MCHC RDW 17.5 H Plt Count Lymph % (Auto) [place] % (Auto) Lymph # [place] # 1.3 H Baso # Seg Neutrophils % 71.5 H Seg Neuts % (Manual) Lymphocytes % (Manual) Monocytes % (Manual) Eosinophils % (Manual) Basophils % (Manual) Nucleated RBC % Seg Neutrophils # 13.4 H Seg Neutrophils # Man Lymphocytes # (Manual) Monocytes # (Manual) Eosinophils # (Manual) Basophils # (Manual) PT INR Fibrinogen dRVVT Confirm Interp Factor V Activity POC ABG pH POC ABG pCO2 POC ABG pO2 ABG pO2 ABG HCO3 ABG Base Excess ABG Hemoglobin Oxyhemoglobin Sodium Potassium Chloride Carbon Dioxide BUN 73 H Creatinine 1.5 H Glucose 141 H POC Glucose 171 H Lactic Acid Calcium Phosphorus Magnesium Direct Bilirubin AST ALT Alkaline Phosphatase Lactate Dehydrogenase Troponin T C-Reactive Protein Total Protein Albumin Prealbumin Triglycerides Cholesterol LDL Cholesterol Direct HDL Cholesterol PTH Intact Urine pH Urine WBC (Auto) Urine Creatinine Urine Total Protein Fluid Total Protein Vancomycin Trough Rheumatoid Factor Complement C4 Miscellaneous Test Crossmatch 12/13/16 12/13/16 12/14/16 12:28 16:48 00:01 WBC RBC Hgb Hct MCV MCH MCHC RDW Plt Count Lymph % (Auto) [place] % (Auto) Lymph # [place] # Baso # Seg Neutrophils % Seg Neuts % (Manual) Lymphocytes % (Manual) Monocytes % (Manual) Eosinophils % (Manual) Basophils % (Manual) Nucleated RBC % Seg Neutrophils # Seg Neutrophils # Man Lymphocytes # (Manual) Monocytes # (Manual) Eosinophils # (Manual) Basophils # (Manual) PT INR Fibrinogen dRVVT Confirm Interp Factor V Activity POC ABG pH POC ABG pCO2 POC ABG pO2 ABG pO2 ABG HCO3 ABG Base Excess ABG Hemoglobin Oxyhemoglobin Sodium Potassium Chloride Carbon Dioxide BUN Creatinine Glucose POC Glucose 206 H 173 H 139 H Lactic Acid Calcium Phosphorus Magnesium Direct Bilirubin AST ALT Alkaline Phosphatase Lactate Dehydrogenase Troponin T C-Reactive Protein Total Protein Albumin Prealbumin Triglycerides Cholesterol LDL Cholesterol Direct HDL Cholesterol PTH Intact Urine pH Urine WBC (Auto) Urine Creatinine Urine Total Protein Fluid Total Protein Vancomycin Trough Rheumatoid Factor Complement C4 Miscellaneous Test Crossmatch 12/14/16 12/14/16 12/14/16 05:16 06:10 11:17 WBC RBC Hgb Hct MCV MCH MCHC RDW Plt Count Lymph % (Auto) [place] % (Auto) Lymph # [place] # Baso # Seg Neutrophils % Seg Neuts % (Manual) Lymphocytes % (Manual) Monocytes % (Manual) Eosinophils % (Manual) Basophils % (Manual) Nucleated RBC % Seg Neutrophils # Seg Neutrophils # Man Lymphocytes # (Manual) Monocytes # (Manual) Eosinophils # (Manual) Basophils # (Manual) PT INR Fibrinogen dRVVT Confirm Interp Factor V Activity POC ABG pH POC ABG pCO2 POC ABG pO2 ABG pO2 ABG HCO3 ABG Base Excess ABG Hemoglobin Oxyhemoglobin Sodium Potassium Chloride Carbon Dioxide BUN 57 H Creatinine 1.4 H Glucose 135 H POC Glucose 158 H 137 H Lactic Acid Calcium Phosphorus Magnesium Direct Bilirubin AST ALT Alkaline Phosphatase Lactate Dehydrogenase Troponin T C-Reactive Protein Total Protein Albumin Prealbumin Triglycerides Cholesterol LDL Cholesterol Direct HDL Cholesterol PTH Intact Urine pH Urine WBC (Auto) Urine Creatinine Urine Total Protein Fluid Total Protein Vancomycin Trough Rheumatoid Factor Complement C4 Miscellaneous Test Crossmatch 12/14/16 12/14/16 12/15/16 17:52 23:27 04:00 WBC RBC Hgb Hct MCV MCH MCHC RDW Plt Count Lymph % (Auto) [place] % (Auto) Lymph # [place] # Baso # Seg Neutrophils % Seg Neuts % (Manual) Lymphocytes % (Manual) Monocytes % (Manual) Eosinophils % (Manual) Basophils % (Manual) Nucleated RBC % Seg Neutrophils # Seg Neutrophils # Man Lymphocytes # (Manual) Monocytes # (Manual) Eosinophils # (Manual) Basophils # (Manual) PT INR Fibrinogen dRVVT Confirm Interp Factor V Activity POC ABG pH POC ABG pCO2 POC ABG pO2 ABG pO2 ABG HCO3 ABG Base Excess ABG Hemoglobin Oxyhemoglobin Sodium Potassium Chloride 97.9 L Carbon Dioxide BUN 75 H Creatinine 1.6 H Glucose 122 H POC Glucose 149 H 163 H Lactic Acid Calcium Phosphorus 5.20 H Magnesium Direct Bilirubin AST ALT Alkaline Phosphatase Lactate Dehydrogenase Troponin T C-Reactive Protein Total Protein Albumin Prealbumin Triglycerides Cholesterol LDL Cholesterol Direct HDL Cholesterol PTH Intact Urine pH Urine WBC (Auto) Urine Creatinine Urine Total Protein Fluid Total Protein Vancomycin Trough Rheumatoid Factor Complement C4 Miscellaneous Test Crossmatch 12/15/16 12/15/16 12/15/16 05:50 11:24 17:01 WBC RBC Hgb Hct MCV MCH MCHC RDW Plt Count Lymph % (Auto) [place] % (Auto) Lymph # [place] # Baso # Seg Neutrophils % Seg Neuts % (Manual) Lymphocytes % (Manual) Monocytes % (Manual) Eosinophils % (Manual) Basophils % (Manual) Nucleated RBC % Seg Neutrophils # Seg Neutrophils # Man Lymphocytes # (Manual) Monocytes # (Manual) Eosinophils # (Manual) Basophils # (Manual) PT INR Fibrinogen dRVVT Confirm Interp Factor V Activity POC ABG pH POC ABG pCO2 POC ABG pO2 ABG pO2 ABG HCO3 ABG Base Excess ABG Hemoglobin Oxyhemoglobin Sodium Potassium Chloride Carbon Dioxide BUN Creatinine Glucose POC Glucose 150 H 146 H 167 H Lactic Acid Calcium Phosphorus Magnesium Direct Bilirubin AST ALT Alkaline Phosphatase Lactate Dehydrogenase Troponin T C-Reactive Protein Total Protein Albumin Prealbumin Triglycerides Cholesterol LDL Cholesterol Direct HDL Cholesterol PTH Intact Urine pH Urine WBC (Auto) Urine Creatinine Urine Total Protein Fluid Total Protein Vancomycin Trough Rheumatoid Factor Complement C4 Miscellaneous Test Crossmatch 12/15/16 12/16/16 12/16/16 23:34 05:25 11:24 WBC RBC Hgb Hct MCV MCH MCHC RDW Plt Count Lymph % (Auto) [place] % (Auto) Lymph # [place] # Baso # Seg Neutrophils % Seg Neuts % (Manual) Lymphocytes % (Manual) Monocytes % (Manual) Eosinophils % (Manual) Basophils % (Manual) Nucleated RBC % Seg Neutrophils # Seg Neutrophils # Man Lymphocytes # (Manual) Monocytes # (Manual) Eosinophils # (Manual) Basophils # (Manual) PT INR Fibrinogen dRVVT Confirm Interp Factor V Activity POC ABG pH POC ABG pCO2 POC ABG pO2 ABG pO2 ABG HCO3 ABG Base Excess ABG Hemoglobin Oxyhemoglobin Sodium Potassium Chloride Carbon Dioxide BUN Creatinine Glucose POC Glucose 127 H 139 H 165 H Lactic Acid Calcium Phosphorus Magnesium Direct Bilirubin AST ALT Alkaline Phosphatase Lactate Dehydrogenase Troponin T C-Reactive Protein Total Protein Albumin Prealbumin Triglycerides Cholesterol LDL Cholesterol Direct HDL Cholesterol PTH Intact Urine pH Urine WBC (Auto) Urine Creatinine Urine Total Protein Fluid Total Protein Vancomycin Trough Rheumatoid Factor Complement C4 Miscellaneous Test Crossmatch 12/16/16 12/16/16 12/16/16 15:30 16:25 17:31 WBC 17.8 H RBC 2.38 L Hgb 6.4 L Hct 20.3 L MCV MCH 27 L MCHC RDW 17.4 H Plt Count Lymph % (Auto) [place] % (Auto) Lymph # [place] # Baso # Seg Neutrophils % Seg Neuts % (Manual) Lymphocytes % (Manual) Monocytes % (Manual) 10.0 H Eosinophils % (Manual) Basophils % (Manual) Nucleated RBC % Seg Neutrophils # Seg Neutrophils # Man 8.5 H Lymphocytes # (Manual) Monocytes # (Manual) 1.8 H Eosinophils # (Manual) Basophils # (Manual) PT INR Fibrinogen dRVVT Confirm Interp Factor V Activity POC ABG pH POC ABG pCO2 POC ABG pO2 ABG pO2 ABG HCO3 ABG Base Excess ABG Hemoglobin Oxyhemoglobin Sodium Potassium Chloride Carbon Dioxide BUN Creatinine Glucose POC Glucose 176 H Lactic Acid Calcium Phosphorus Magnesium Direct Bilirubin AST ALT Alkaline Phosphatase Lactate Dehydrogenase Troponin T C-Reactive Protein Total Protein Albumin Prealbumin Triglycerides Cholesterol LDL Cholesterol Direct HDL Cholesterol PTH Intact Urine pH Urine WBC (Auto) Urine Creatinine Urine Total Protein Fluid Total Protein Vancomycin Trough Rheumatoid Factor Complement C4 Miscellaneous Test Crossmatch See Detail 12/17/16 12/17/16 12/17/16 00:14 04:00 05:00 WBC 20.0 H RBC 2.99 L Hgb 8.5 L Hct 25.7 L MCV MCH MCHC RDW 17.2 H Plt Count Lymph % (Auto) [place] % (Auto) Lymph # [place] # Baso # Seg Neutrophils % Seg Neuts % (Manual) Lymphocytes % (Manual) Monocytes % (Manual) Eosinophils % (Manual) Basophils % (Manual) Nucleated RBC % Seg Neutrophils # Seg Neutrophils # Man Lymphocytes # (Manual) Monocytes # (Manual) Eosinophils # (Manual) Basophils # (Manual) PT INR Fibrinogen dRVVT Confirm Interp Factor V Activity POC ABG pH POC ABG pCO2 POC ABG pO2 ABG pO2 ABG HCO3 ABG Base Excess ABG Hemoglobin Oxyhemoglobin Sodium Potassium Chloride 97.7 L Carbon Dioxide BUN 73 H Creatinine 1.7 H Glucose 136 H POC Glucose 148 H Lactic Acid Calcium Phosphorus 2.20 L Magnesium 2.70 H Direct Bilirubin AST ALT Alkaline Phosphatase Lactate Dehydrogenase Troponin T C-Reactive Protein Total Protein Albumin Prealbumin Triglycerides Cholesterol LDL Cholesterol Direct HDL Cholesterol PTH Intact Urine pH Urine WBC (Auto) Urine Creatinine Urine Total Protein Fluid Total Protein Vancomycin Trough Rheumatoid Factor Complement C4 Miscellaneous Test Crossmatch 12/17/16 12/17/16 12/17/16 05:39 12:50 16:32 WBC RBC Hgb Hct MCV MCH MCHC RDW Plt Count Lymph % (Auto) [place] % (Auto) Lymph # [place] # Baso # Seg Neutrophils % Seg Neuts % (Manual) Lymphocytes % (Manual) Monocytes % (Manual) Eosinophils % (Manual) Basophils % (Manual) Nucleated RBC % Seg Neutrophils # Seg Neutrophils # Man Lymphocytes # (Manual) Monocytes # (Manual) Eosinophils # (Manual) Basophils # (Manual) PT INR Fibrinogen dRVVT Confirm Interp Factor V Activity POC ABG pH POC ABG pCO2 POC ABG pO2 ABG pO2 ABG HCO3 ABG Base Excess ABG Hemoglobin Oxyhemoglobin Sodium Potassium Chloride Carbon Dioxide BUN Creatinine Glucose POC Glucose 162 H 146 H 169 H Lactic Acid Calcium Phosphorus Magnesium Direct Bilirubin AST ALT Alkaline Phosphatase Lactate Dehydrogenase Troponin T C-Reactive Protein Total Protein Albumin Prealbumin Triglycerides Cholesterol LDL Cholesterol Direct HDL Cholesterol PTH Intact Urine pH Urine WBC (Auto) Urine Creatinine Urine Total Protein Fluid Total Protein Vancomycin Trough Rheumatoid Factor Complement C4 Miscellaneous Test Crossmatch 12/17/16 12/18/16 12/18/16 23:57 05:00 05:32 WBC RBC Hgb Hct MCV MCH MCHC RDW Plt Count Lymph % (Auto) [place] % (Auto) Lymph # [place] # Baso # Seg Neutrophils % Seg Neuts % (Manual) Lymphocytes % (Manual) Monocytes % (Manual) Eosinophils % (Manual) Basophils % (Manual) Nucleated RBC % Seg Neutrophils # Seg Neutrophils # Man Lymphocytes # (Manual) Monocytes # (Manual) Eosinophils # (Manual) Basophils # (Manual) PT INR Fibrinogen dRVVT Confirm Interp Factor V Activity POC ABG pH POC ABG pCO2 POC ABG pO2 ABG pO2 ABG HCO3 ABG Base Excess ABG Hemoglobin Oxyhemoglobin Sodium Potassium Chloride 97.0 L Carbon Dioxide BUN 63 H Creatinine 1.4 H Glucose 174 H POC Glucose 145 H 201 H Lactic Acid Calcium Phosphorus 1.70 L D Magnesium Direct Bilirubin AST ALT Alkaline Phosphatase 257 H Lactate Dehydrogenase Troponin T C-Reactive Protein Total Protein 5.9 L Albumin 1.8 L Prealbumin Triglycerides Cholesterol LDL Cholesterol Direct HDL Cholesterol PTH Intact Urine pH Urine WBC (Auto) Urine Creatinine Urine Total Protein Fluid Total Protein Vancomycin Trough Rheumatoid Factor Complement C4 Miscellaneous Test Crossmatch 12/18/16 12/18/16 12/18/16 11:43 16:52 23:52 WBC RBC Hgb Hct MCV MCH MCHC RDW Plt Count Lymph % (Auto) [place] % (Auto) Lymph # [place] # Baso # Seg Neutrophils % Seg Neuts % (Manual) Lymphocytes % (Manual) Monocytes % (Manual) Eosinophils % (Manual) Basophils % (Manual) Nucleated RBC % Seg Neutrophils # Seg Neutrophils # Man Lymphocytes # (Manual) Monocytes # (Manual) Eosinophils # (Manual) Basophils # (Manual) PT INR Fibrinogen dRVVT Confirm Interp Factor V Activity POC ABG pH POC ABG pCO2 POC ABG pO2 ABG pO2 ABG HCO3 ABG Base Excess ABG Hemoglobin Oxyhemoglobin Sodium Potassium Chloride Carbon Dioxide BUN Creatinine Glucose POC Glucose 177 H 110 H 162 H Lactic Acid Calcium Phosphorus Magnesium Direct Bilirubin AST ALT Alkaline Phosphatase Lactate Dehydrogenase Troponin T C-Reactive Protein Total Protein Albumin Prealbumin Triglycerides Cholesterol LDL Cholesterol Direct HDL Cholesterol PTH Intact Urine pH Urine WBC (Auto) Urine Creatinine Urine Total Protein Fluid Total Protein Vancomycin Trough Rheumatoid Factor Complement C4 Miscellaneous Test Crossmatch 12/19/16 12/19/16 12/19/16 05:02 05:24 09:30 WBC 20.1 H RBC 2.73 L Hgb 7.6 L Hct 23.6 L MCV MCH MCHC RDW 17.6 H Plt Count Lymph % (Auto) [place] % (Auto) Lymph # [place] # Baso # Seg Neutrophils % Seg Neuts % (Manual) Lymphocytes % (Manual) 13.0 L Monocytes % (Manual) Eosinophils % (Manual) Basophils % (Manual) Nucleated RBC % 1.0 H Seg Neutrophils # Seg Neutrophils # Man 12.9 H Lymphocytes # (Manual) Monocytes # (Manual) 1.4 H Eosinophils # (Manual) Basophils # (Manual) 0.2 H PT INR Fibrinogen dRVVT Confirm Interp Factor V Activity POC ABG pH POC ABG pCO2 POC ABG pO2 ABG pO2 ABG HCO3 ABG Base Excess ABG Hemoglobin Oxyhemoglobin Sodium Potassium Chloride 97.8 L Carbon Dioxide BUN 84 H Creatinine 1.6 H Glucose 133 H POC Glucose 134 H Lactic Acid Calcium Phosphorus Magnesium Direct Bilirubin AST ALT Alkaline Phosphatase Lactate Dehydrogenase Troponin T C-Reactive Protein Total Protein Albumin Prealbumin Triglycerides Cholesterol LDL Cholesterol Direct HDL Cholesterol PTH Intact Urine pH Urine WBC (Auto) Urine Creatinine Urine Total Protein Fluid Total Protein Vancomycin Trough Rheumatoid Factor Complement C4 Miscellaneous Test Crossmatch 12/19/16 12/19/16 12/19/16 09:36 11:12 18:29 WBC RBC Hgb Hct MCV MCH MCHC RDW Plt Count Lymph % (Auto) [place] % (Auto) Lymph # [place] # Baso # Seg Neutrophils % Seg Neuts % (Manual) Lymphocytes % (Manual) Monocytes % (Manual) Eosinophils % (Manual) Basophils % (Manual) Nucleated RBC % Seg Neutrophils # Seg Neutrophils # Man Lymphocytes # (Manual) Monocytes # (Manual) Eosinophils # (Manual) Basophils # (Manual) PT INR Fibrinogen dRVVT Confirm Interp Factor V Activity POC ABG pH 7.503 H POC ABG pCO2 30.1 L POC ABG pO2 ABG pO2 ABG HCO3 ABG Base Excess ABG Hemoglobin Oxyhemoglobin Sodium Potassium Chloride Carbon Dioxide BUN Creatinine Glucose POC Glucose 138 H 156 H Lactic Acid Calcium Phosphorus Magnesium Direct Bilirubin AST ALT Alkaline Phosphatase Lactate Dehydrogenase Troponin T C-Reactive Protein Total Protein Albumin Prealbumin Triglycerides Cholesterol LDL Cholesterol Direct HDL Cholesterol PTH Intact Urine pH Urine WBC (Auto) Urine Creatinine Urine Total Protein Fluid Total Protein Vancomycin Trough Rheumatoid Factor Complement C4 Miscellaneous Test Crossmatch 12/20/16 12/20/16 12/20/16 00:03 06:17 07:07 WBC RBC Hgb Hct MCV MCH MCHC RDW Plt Count Lymph % (Auto) [place] % (Auto) Lymph # [place] # Baso # Seg Neutrophils % Seg Neuts % (Manual) Lymphocytes % (Manual) Monocytes % (Manual) Eosinophils % (Manual) Basophils % (Manual) Nucleated RBC % Seg Neutrophils # Seg Neutrophils # Man Lymphocytes # (Manual) Monocytes # (Manual) Eosinophils # (Manual) Basophils # (Manual) PT INR Fibrinogen dRVVT Confirm Interp Factor V Activity POC ABG pH POC ABG pCO2 POC ABG pO2 ABG pO2 ABG HCO3 ABG Base Excess ABG Hemoglobin Oxyhemoglobin Sodium Potassium Chloride 97.1 L Carbon Dioxide 20 L BUN 97 H Creatinine 1.8 H Glucose 153 H POC Glucose 152 H 175 H Lactic Acid Calcium Phosphorus Magnesium Direct Bilirubin AST ALT Alkaline Phosphatase Lactate Dehydrogenase Troponin T C-Reactive Protein Total Protein Albumin Prealbumin Triglycerides Cholesterol LDL Cholesterol Direct HDL Cholesterol PTH Intact Urine pH Urine WBC (Auto) Urine Creatinine Urine Total Protein Fluid Total Protein Vancomycin Trough Rheumatoid Factor Complement C4 Miscellaneous Test Crossmatch 12/20/16 12/20/16 12/20/16 12:00 17:42 23:53 WBC RBC Hgb Hct MCV MCH MCHC RDW Plt Count Lymph % (Auto) [place] % (Auto) Lymph # [place] # Baso # Seg Neutrophils % Seg Neuts % (Manual) Lymphocytes % (Manual) Monocytes % (Manual) Eosinophils % (Manual) Basophils % (Manual) Nucleated RBC % Seg Neutrophils # Seg Neutrophils # Man Lymphocytes # (Manual) Monocytes # (Manual) Eosinophils # (Manual) Basophils # (Manual) PT INR Fibrinogen dRVVT Confirm Interp Factor V Activity POC ABG pH POC ABG pCO2 POC ABG pO2 ABG pO2 ABG HCO3 ABG Base Excess ABG Hemoglobin Oxyhemoglobin Sodium Potassium Chloride Carbon Dioxide BUN Creatinine Glucose POC Glucose 141 H 156 H 132 H Lactic Acid Calcium Phosphorus Magnesium Direct Bilirubin AST ALT Alkaline Phosphatase Lactate Dehydrogenase Troponin T C-Reactive Protein Total Protein Albumin Prealbumin Triglycerides Cholesterol LDL Cholesterol Direct HDL Cholesterol PTH Intact Urine pH Urine WBC (Auto) Urine Creatinine Urine Total Protein Fluid Total Protein Vancomycin Trough Rheumatoid Factor Complement C4 Miscellaneous Test Crossmatch 12/21/16 12/21/16 12/21/16 05:49 08:50 12:19 WBC RBC Hgb Hct MCV MCH MCHC RDW Plt Count Lymph % (Auto) [place] % (Auto) Lymph # [place] # Baso # Seg Neutrophils % Seg Neuts % (Manual) Lymphocytes % (Manual) Monocytes % (Manual) Eosinophils % (Manual) Basophils % (Manual) Nucleated RBC % Seg Neutrophils # Seg Neutrophils # Man Lymphocytes # (Manual) Monocytes # (Manual) Eosinophils # (Manual) Basophils # (Manual) PT INR Fibrinogen dRVVT Confirm Interp Factor V Activity POC ABG pH POC ABG pCO2 POC ABG pO2 ABG pO2 ABG HCO3 ABG Base Excess ABG Hemoglobin Oxyhemoglobin Sodium Potassium 5.2 H D Chloride Carbon Dioxide BUN 63 H Creatinine Glucose 122 H POC Glucose 132 H 136 H Lactic Acid Calcium 8.3 L Phosphorus Magnesium Direct Bilirubin AST ALT Alkaline Phosphatase Lactate Dehydrogenase Troponin T C-Reactive Protein Total Protein Albumin Prealbumin Triglycerides Cholesterol LDL Cholesterol Direct HDL Cholesterol PTH Intact Urine pH Urine WBC (Auto) Urine Creatinine Urine Total Protein Fluid Total Protein Vancomycin Trough Rheumatoid Factor Complement C4 Miscellaneous Test Crossmatch 12/21/16 12/21/16 12/22/16 17:22 23:58 05:49 WBC RBC Hgb Hct MCV MCH MCHC RDW Plt Count Lymph % (Auto) [place] % (Auto) Lymph # [place] # Baso # Seg Neutrophils % Seg Neuts % (Manual) Lymphocytes % (Manual) Monocytes % (Manual) Eosinophils % (Manual) Basophils % (Manual) Nucleated RBC % Seg Neutrophils # Seg Neutrophils # Man Lymphocytes # (Manual) Monocytes # (Manual) Eosinophils # (Manual) Basophils # (Manual) PT INR Fibrinogen dRVVT Confirm Interp Factor V Activity POC ABG pH POC ABG pCO2 POC ABG pO2 ABG pO2 ABG HCO3 ABG Base Excess ABG Hemoglobin Oxyhemoglobin Sodium Potassium Chloride Carbon Dioxide BUN Creatinine Glucose POC Glucose 135 H 149 H 140 H Lactic Acid Calcium Phosphorus Magnesium Direct Bilirubin AST ALT Alkaline Phosphatase Lactate Dehydrogenase Troponin T C-Reactive Protein Total Protein Albumin Prealbumin Triglycerides Cholesterol LDL Cholesterol Direct HDL Cholesterol PTH Intact Urine pH Urine WBC (Auto) Urine Creatinine Urine Total Protein Fluid Total Protein Vancomycin Trough Rheumatoid Factor Complement C4 Miscellaneous Test Crossmatch 12/22/16 12/22/16 12/22/16 06:10 11:17 17:31 WBC RBC Hgb Hct MCV MCH MCHC RDW Plt Count Lymph % (Auto) [place] % (Auto) Lymph # [place] # Baso # Seg Neutrophils % Seg Neuts % (Manual) Lymphocytes % (Manual) Monocytes % (Manual) Eosinophils % (Manual) Basophils % (Manual) Nucleated RBC % Seg Neutrophils # Seg Neutrophils # Man Lymphocytes # (Manual) Monocytes # (Manual) Eosinophils # (Manual) Basophils # (Manual) PT INR Fibrinogen dRVVT Confirm Interp Factor V Activity POC ABG pH POC ABG pCO2 POC ABG pO2 ABG pO2 ABG HCO3 ABG Base Excess ABG Hemoglobin Oxyhemoglobin Sodium Potassium Chloride Carbon Dioxide BUN 76 H Creatinine 1.5 H Glucose 241 H POC Glucose 193 H 148 H Lactic Acid Calcium Phosphorus Magnesium Direct Bilirubin AST ALT Alkaline Phosphatase Lactate Dehydrogenase Troponin T C-Reactive Protein Total Protein Albumin Prealbumin Triglycerides Cholesterol LDL Cholesterol Direct HDL Cholesterol PTH Intact Urine pH Urine WBC (Auto) Urine Creatinine Urine Total Protein Fluid Total Protein Vancomycin Trough Rheumatoid Factor Complement C4 Miscellaneous Test Crossmatch 12/22/16 12/23/16 12/23/16 23:58 05:00 05:26 WBC RBC Hgb Hct MCV MCH MCHC RDW Plt Count Lymph % (Auto) [place] % (Auto) Lymph # [place] # Baso # Seg Neutrophils % Seg Neuts % (Manual) Lymphocytes % (Manual) Monocytes % (Manual) Eosinophils % (Manual) Basophils % (Manual) Nucleated RBC % Seg Neutrophils # Seg Neutrophils # Man Lymphocytes # (Manual) Monocytes # (Manual) Eosinophils # (Manual) Basophils # (Manual) PT INR Fibrinogen dRVVT Confirm Interp Factor V Activity POC ABG pH POC ABG pCO2 POC ABG pO2 ABG pO2 ABG HCO3 ABG Base Excess ABG Hemoglobin Oxyhemoglobin Sodium Potassium Chloride Carbon Dioxide BUN 49 H Creatinine Glucose 143 H POC Glucose 165 H 154 H Lactic Acid Calcium 8.2 L Phosphorus Magnesium 1.60 L Direct Bilirubin AST ALT Alkaline Phosphatase Lactate Dehydrogenase Troponin T C-Reactive Protein Total Protein Albumin Prealbumin Triglycerides Cholesterol LDL Cholesterol Direct HDL Cholesterol PTH Intact Urine pH Urine WBC (Auto) Urine Creatinine Urine Total Protein Fluid Total Protein Vancomycin Trough Rheumatoid Factor Complement C4 Miscellaneous Test Crossmatch 12/23/16 12/23/16 12/24/16 12:35 17:01 00:01 WBC RBC Hgb Hct MCV MCH MCHC RDW Plt Count Lymph % (Auto) [place] % (Auto) Lymph # [place] # Baso # Seg Neutrophils % Seg Neuts % (Manual) Lymphocytes % (Manual) Monocytes % (Manual) Eosinophils % (Manual) Basophils % (Manual) Nucleated RBC % Seg Neutrophils # Seg Neutrophils # Man Lymphocytes # (Manual) Monocytes # (Manual) Eosinophils # (Manual) Basophils # (Manual) PT INR Fibrinogen dRVVT Confirm Interp Factor V Activity POC ABG pH POC ABG pCO2 POC ABG pO2 ABG pO2 ABG HCO3 ABG Base Excess ABG Hemoglobin Oxyhemoglobin Sodium Potassium Chloride Carbon Dioxide BUN Creatinine Glucose POC Glucose 164 H 149 H 135 H Lactic Acid Calcium Phosphorus Magnesium Direct Bilirubin AST ALT Alkaline Phosphatase Lactate Dehydrogenase Troponin T C-Reactive Protein Total Protein Albumin Prealbumin Triglycerides Cholesterol LDL Cholesterol Direct HDL Cholesterol PTH Intact Urine pH Urine WBC (Auto) Urine Creatinine Urine Total Protein Fluid Total Protein Vancomycin Trough Rheumatoid Factor Complement C4 Miscellaneous Test Crossmatch 12/24/16 12/24/16 12/24/16 05:41 07:01 11:38 WBC RBC Hgb Hct MCV MCH MCHC RDW Plt Count Lymph % (Auto) [place] % (Auto) Lymph # [place] # Baso # Seg Neutrophils % Seg Neuts % (Manual) Lymphocytes % (Manual) Monocytes % (Manual) Eosinophils % (Manual) Basophils % (Manual) Nucleated RBC % Seg Neutrophils # Seg Neutrophils # Man Lymphocytes # (Manual) Monocytes # (Manual) Eosinophils # (Manual) Basophils # (Manual) PT INR Fibrinogen dRVVT Confirm Interp Factor V Activity POC ABG pH POC ABG pCO2 POC ABG pO2 ABG pO2 ABG HCO3 ABG Base Excess ABG Hemoglobin Oxyhemoglobin Sodium Potassium Chloride Carbon Dioxide BUN 72 H Creatinine 1.3 H Glucose 130 H POC Glucose 132 H 156 H Lactic Acid Calcium 8.2 L Phosphorus Magnesium Direct Bilirubin AST ALT Alkaline Phosphatase Lactate Dehydrogenase Troponin T C-Reactive Protein Total Protein Albumin Prealbumin Triglycerides Cholesterol LDL Cholesterol Direct HDL Cholesterol PTH Intact Urine pH Urine WBC (Auto) Urine Creatinine Urine Total Protein Fluid Total Protein Vancomycin Trough Rheumatoid Factor Complement C4 Miscellaneous Test Crossmatch 12/24/16 12/25/16 12/25/16 17:53 00:23 05:45 WBC RBC Hgb Hct MCV MCH MCHC RDW Plt Count Lymph % (Auto) [place] % (Auto) Lymph # [place] # Baso # Seg Neutrophils % Seg Neuts % (Manual) Lymphocytes % (Manual) Monocytes % (Manual) Eosinophils % (Manual) Basophils % (Manual) Nucleated RBC % Seg Neutrophils # Seg Neutrophils # Man Lymphocytes # (Manual) Monocytes # (Manual) Eosinophils # (Manual) Basophils # (Manual) PT INR Fibrinogen dRVVT Confirm Interp Factor V Activity POC ABG pH POC ABG pCO2 POC ABG pO2 ABG pO2 ABG HCO3 ABG Base Excess ABG Hemoglobin Oxyhemoglobin Sodium 146 H Potassium Chloride Carbon Dioxide BUN 51 H Creatinine Glucose 109 H POC Glucose 169 H 117 H Lactic Acid Calcium Phosphorus Magnesium Direct Bilirubin AST ALT Alkaline Phosphatase Lactate Dehydrogenase Troponin T C-Reactive Protein Total Protein Albumin Prealbumin Triglycerides Cholesterol LDL Cholesterol Direct HDL Cholesterol PTH Intact Urine pH Urine WBC (Auto) Urine Creatinine Urine Total Protein Fluid Total Protein Vancomycin Trough Rheumatoid Factor Complement C4 Miscellaneous Test Crossmatch 12/25/16 12/25/16 12/25/16 06:43 11:29 17:14 WBC RBC Hgb Hct MCV MCH MCHC RDW Plt Count Lymph % (Auto) [place] % (Auto) Lymph # [place] # Baso # Seg Neutrophils % Seg Neuts % (Manual) Lymphocytes % (Manual) Monocytes % (Manual) Eosinophils % (Manual) Basophils % (Manual) Nucleated RBC % Seg Neutrophils # Seg Neutrophils # Man Lymphocytes # (Manual) Monocytes # (Manual) Eosinophils # (Manual) Basophils # (Manual) PT INR Fibrinogen dRVVT Confirm Interp Factor V Activity POC ABG pH POC ABG pCO2 POC ABG pO2 ABG pO2 ABG HCO3 ABG Base Excess ABG Hemoglobin Oxyhemoglobin Sodium Potassium Chloride Carbon Dioxide BUN Creatinine Glucose POC Glucose 117 H 128 H 120 H Lactic Acid Calcium Phosphorus Magnesium Direct Bilirubin AST ALT Alkaline Phosphatase Lactate Dehydrogenase Troponin T C-Reactive Protein Total Protein Albumin Prealbumin Triglycerides Cholesterol LDL Cholesterol Direct HDL Cholesterol PTH Intact Urine pH Urine WBC (Auto) Urine Creatinine Urine Total Protein Fluid Total Protein Vancomycin Trough Rheumatoid Factor Complement C4 Miscellaneous Test Crossmatch 12/25/16 12/26/16 12/26/16 23:54 05:40 05:50 WBC 16.2 H RBC 2.32 L Hgb 6.2 L Hct 20.1 L MCV MCH 27 L MCHC RDW 18.6 H Plt Count Lymph % (Auto) [place] % (Auto) Lymph # [place] # Baso # Seg Neutrophils % Seg Neuts % (Manual) Lymphocytes % (Manual) Monocytes % (Manual) Eosinophils % (Manual) Basophils % (Manual) Nucleated RBC % Seg Neutrophils # Seg Neutrophils # Man Lymphocytes # (Manual) Monocytes # (Manual) Eosinophils # (Manual) Basophils # (Manual) PT INR Fibrinogen dRVVT Confirm Interp Factor V Activity POC ABG pH POC ABG pCO2 POC ABG pO2 ABG pO2 ABG HCO3 ABG Base Excess ABG Hemoglobin Oxyhemoglobin Sodium Potassium Chloride Carbon Dioxide BUN Creatinine Glucose POC Glucose 126 H 132 H Lactic Acid Calcium Phosphorus Magnesium Direct Bilirubin AST ALT Alkaline Phosphatase Lactate Dehydrogenase Troponin T C-Reactive Protein Total Protein Albumin Prealbumin Triglycerides Cholesterol LDL Cholesterol Direct HDL Cholesterol PTH Intact Urine pH Urine WBC (Auto) Urine Creatinine Urine Total Protein Fluid Total Protein Vancomycin Trough Rheumatoid Factor Complement C4 Miscellaneous Test Crossmatch 12/26/16 12/26/16 12/26/16 05:50 12:17 12:33 WBC RBC Hgb Hct MCV MCH MCHC RDW Plt Count Lymph % (Auto) [place] % (Auto) Lymph # [place] # Baso # Seg Neutrophils % Seg Neuts % (Manual) Lymphocytes % (Manual) Monocytes % (Manual) Eosinophils % (Manual) Basophils % (Manual) Nucleated RBC % Seg Neutrophils # Seg Neutrophils # Man Lymphocytes # (Manual) Monocytes # (Manual) Eosinophils # (Manual) Basophils # (Manual) PT INR Fibrinogen dRVVT Confirm Interp Factor V Activity POC ABG pH POC ABG pCO2 POC ABG pO2 ABG pO2 ABG HCO3 ABG Base Excess ABG Hemoglobin Oxyhemoglobin Sodium Potassium Chloride Carbon Dioxide BUN 73 H Creatinine 1.3 H Glucose 113 H POC Glucose 117 H Lactic Acid Calcium Phosphorus Magnesium Direct Bilirubin AST ALT Alkaline Phosphatase Lactate Dehydrogenase Troponin T C-Reactive Protein Total Protein Albumin Prealbumin Triglycerides Cholesterol LDL Cholesterol Direct HDL Cholesterol PTH Intact Urine pH Urine WBC (Auto) Urine Creatinine Urine Total Protein Fluid Total Protein Vancomycin Trough Rheumatoid Factor Complement C4 Miscellaneous Test Crossmatch See Detail 12/26/16 12/26/16 12/27/16 20:00 23:21 05:00 WBC RBC Hgb 8.4 L Hct 26.3 L D MCV MCH MCHC RDW Plt Count Lymph % (Auto) [place] % (Auto) Lymph # [place] # Baso # Seg Neutrophils % Seg Neuts % (Manual) Lymphocytes % (Manual) Monocytes % (Manual) Eosinophils % (Manual) Basophils % (Manual) Nucleated RBC % Seg Neutrophils # Seg Neutrophils # Man Lymphocytes # (Manual) Monocytes # (Manual) Eosinophils # (Manual) Basophils # (Manual) PT INR Fibrinogen dRVVT Confirm Interp Factor V Activity POC ABG pH POC ABG pCO2 POC ABG pO2 ABG pO2 ABG HCO3 ABG Base Excess ABG Hemoglobin Oxyhemoglobin Sodium Potassium Chloride Carbon Dioxide BUN 85 H Creatinine 1.6 H Glucose 118 H POC Glucose 124 H Lactic Acid Calcium Phosphorus 4.80 H Magnesium Direct Bilirubin AST ALT Alkaline Phosphatase Lactate Dehydrogenase Troponin T C-Reactive Protein Total Protein Albumin Prealbumin Triglycerides Cholesterol LDL Cholesterol Direct HDL Cholesterol PTH Intact Urine pH Urine WBC (Auto) Urine Creatinine Urine Total Protein Fluid Total Protein Vancomycin Trough Rheumatoid Factor Complement C4 Miscellaneous Test Crossmatch 12/27/16 12/27/16 12/27/16 05:00 05:35 12:24 WBC RBC Hgb 7.6 L Hct 22.8 L MCV MCH MCHC RDW Plt Count Lymph % (Auto) [place] % (Auto) Lymph # [place] # Baso # Seg Neutrophils % Seg Neuts % (Manual) Lymphocytes % (Manual) Monocytes % (Manual) Eosinophils % (Manual) Basophils % (Manual) Nucleated RBC % Seg Neutrophils # Seg Neutrophils # Man Lymphocytes # (Manual) Monocytes # (Manual) Eosinophils # (Manual) Basophils # (Manual) PT INR Fibrinogen dRVVT Confirm Interp Factor V Activity POC ABG pH POC ABG pCO2 POC ABG pO2 ABG pO2 ABG HCO3 ABG Base Excess ABG Hemoglobin Oxyhemoglobin Sodium Potassium Chloride Carbon Dioxide BUN Creatinine Glucose POC Glucose 115 H 131 H Lactic Acid Calcium Phosphorus Magnesium Direct Bilirubin AST ALT Alkaline Phosphatase Lactate Dehydrogenase Troponin T C-Reactive Protein Total Protein Albumin Prealbumin Triglycerides Cholesterol LDL Cholesterol Direct HDL Cholesterol PTH Intact Urine pH Urine WBC (Auto) Urine Creatinine Urine Total Protein Fluid Total Protein Vancomycin Trough Rheumatoid Factor Complement C4 Miscellaneous Test Crossmatch 12/27/16 12/28/16 12/28/16 17:16 00:18 04:00 WBC RBC Hgb Hct MCV MCH MCHC RDW Plt Count Lymph % (Auto) [place] % (Auto) Lymph # [place] # Baso # Seg Neutrophils % Seg Neuts % (Manual) Lymphocytes % (Manual) Monocytes % (Manual) Eosinophils % (Manual) Basophils % (Manual) Nucleated RBC % Seg Neutrophils # Seg Neutrophils # Man Lymphocytes # (Manual) Monocytes # (Manual) Eosinophils # (Manual) Basophils # (Manual) PT INR Fibrinogen dRVVT Confirm Interp Factor V Activity POC ABG pH POC ABG pCO2 POC ABG pO2 ABG pO2 ABG HCO3 ABG Base Excess ABG Hemoglobin Oxyhemoglobin Sodium Potassium 3.5 L Chloride Carbon Dioxide BUN 57 H Creatinine Glucose 118 H POC Glucose 136 H 120 H Lactic Acid Calcium 8.3 L Phosphorus Magnesium Direct Bilirubin AST ALT Alkaline Phosphatase Lactate Dehydrogenase Troponin T C-Reactive Protein Total Protein Albumin Prealbumin Triglycerides Cholesterol LDL Cholesterol Direct HDL Cholesterol PTH Intact Urine pH Urine WBC (Auto) Urine Creatinine Urine Total Protein Fluid Total Protein Vancomycin Trough Rheumatoid Factor Complement C4 Miscellaneous Test Crossmatch 12/28/16 12/28/16 12/28/16 04:00 05:11 08:30 WBC 17.0 H RBC 2.58 L Hgb 7.1 L Hct 22.0 L MCV MCH MCHC RDW 17.6 H Plt Count Lymph % (Auto) 12.2 L [place] % (Auto) Lymph # [place] # 1.1 H Baso # Seg Neutrophils % 80.5 H Seg Neuts % (Manual) Lymphocytes % (Manual) Monocytes % (Manual) Eosinophils % (Manual) Basophils % (Manual) Nucleated RBC % Seg Neutrophils # 13.7 H Seg Neutrophils # Man Lymphocytes # (Manual) Monocytes # (Manual) Eosinophils # (Manual) Basophils # (Manual) PT 16.1 H INR 1.23 H Fibrinogen dRVVT Confirm Interp Factor V Activity POC ABG pH POC ABG pCO2 POC ABG pO2 ABG pO2 ABG HCO3 ABG Base Excess ABG Hemoglobin Oxyhemoglobin Sodium Potassium Chloride Carbon Dioxide BUN Creatinine Glucose POC Glucose 122 H Lactic Acid Calcium Phosphorus Magnesium Direct Bilirubin AST ALT Alkaline Phosphatase Lactate Dehydrogenase Troponin T C-Reactive Protein Total Protein Albumin Prealbumin Triglycerides Cholesterol LDL Cholesterol Direct HDL Cholesterol PTH Intact Urine pH Urine WBC (Auto) Urine Creatinine Urine Total Protein Fluid Total Protein Vancomycin Trough Rheumatoid Factor Complement C4 Miscellaneous Test Crossmatch 12/28/16 12/28/16 12/28/16 12:27 16:32 23:46 WBC RBC Hgb Hct MCV MCH MCHC RDW Plt Count Lymph % (Auto) [place] % (Auto) Lymph # [place] # Baso # Seg Neutrophils % Seg Neuts % (Manual) Lymphocytes % (Manual) Monocytes % (Manual) Eosinophils % (Manual) Basophils % (Manual) Nucleated RBC % Seg Neutrophils # Seg Neutrophils # Man Lymphocytes # (Manual) Monocytes # (Manual) Eosinophils # (Manual) Basophils # (Manual) PT INR Fibrinogen dRVVT Confirm Interp Factor V Activity POC ABG pH POC ABG pCO2 POC ABG pO2 ABG pO2 ABG HCO3 ABG Base Excess ABG Hemoglobin Oxyhemoglobin Sodium Potassium Chloride Carbon Dioxide BUN Creatinine Glucose POC Glucose 127 H 117 H 108 H Lactic Acid Calcium Phosphorus Magnesium Direct Bilirubin AST ALT Alkaline Phosphatase Lactate Dehydrogenase Troponin T C-Reactive Protein Total Protein Albumin Prealbumin Triglycerides Cholesterol LDL Cholesterol Direct HDL Cholesterol PTH Intact Urine pH Urine WBC (Auto) Urine Creatinine Urine Total Protein Fluid Total Protein Vancomycin Trough Rheumatoid Factor Complement C4 Miscellaneous Test Crossmatch 12/29/16 12/29/16 12/29/16 05:15 05:15 05:32 WBC RBC Hgb Hct MCV MCH MCHC RDW Plt Count Lymph % (Auto) [place] % (Auto) Lymph # [place] # Baso # Seg Neutrophils % Seg Neuts % (Manual) Lymphocytes % (Manual) Monocytes % (Manual) Eosinophils % (Manual) Basophils % (Manual) Nucleated RBC % Seg Neutrophils # Seg Neutrophils # Man Lymphocytes # (Manual) Monocytes # (Manual) Eosinophils # (Manual) Basophils # (Manual) PT INR Fibrinogen dRVVT Confirm Interp Factor V Activity POC ABG pH POC ABG pCO2 POC ABG pO2 ABG pO2 ABG HCO3 ABG Base Excess ABG Hemoglobin Oxyhemoglobin Sodium Potassium Chloride Carbon Dioxide BUN 74 H Creatinine 1.6 H Glucose 111 H POC Glucose 123 H Lactic Acid Calcium Phosphorus Magnesium Direct Bilirubin AST ALT Alkaline Phosphatase Lactate Dehydrogenase Troponin T C-Reactive Protein Total Protein Albumin Prealbumin 0.110 L Triglycerides Cholesterol LDL Cholesterol Direct HDL Cholesterol PTH Intact Urine pH Urine WBC (Auto) Urine Creatinine Urine Total Protein Fluid Total Protein Vancomycin Trough Rheumatoid Factor Complement C4 Miscellaneous Test Crossmatch 12/29/16 12/29/16 12/29/16 11:43 13:45 14:00 WBC 13.8 H RBC 2.26 L Hgb 6.3 L Hct 20.4 L MCV MCH MCHC RDW 18.3 H Plt Count Lymph % (Auto) [place] % (Auto) Lymph # [place] # 0.9 H Baso # Seg Neutrophils % 78.6 H Seg Neuts % (Manual) Lymphocytes % (Manual) Monocytes % (Manual) Eosinophils % (Manual) Basophils % (Manual) Nucleated RBC % Seg Neutrophils # 10.8 H Seg Neutrophils # Man Lymphocytes # (Manual) Monocytes # (Manual) Eosinophils # (Manual) Basophils # (Manual) PT INR Fibrinogen dRVVT Confirm Interp Factor V Activity POC ABG pH POC ABG pCO2 POC ABG pO2 ABG pO2 ABG HCO3 ABG Base Excess ABG Hemoglobin Oxyhemoglobin Sodium Potassium Chloride Carbon Dioxide BUN Creatinine Glucose POC Glucose 133 H Lactic Acid Calcium Phosphorus Magnesium Direct Bilirubin AST ALT Alkaline Phosphatase Lactate Dehydrogenase Troponin T C-Reactive Protein Total Protein Albumin Prealbumin Triglycerides Cholesterol LDL Cholesterol Direct HDL Cholesterol PTH Intact Urine pH Urine WBC (Auto) Urine Creatinine Urine Total Protein Fluid Total Protein Vancomycin Trough Rheumatoid Factor Complement C4 Miscellaneous Test Crossmatch See Detail 12/29/16 12/29/16 12/29/16 17:03 23:15 23:22 WBC RBC Hgb 7.3 L Hct 22.3 L MCV MCH MCHC RDW Plt Count Lymph % (Auto) [place] % (Auto) Lymph # [place] # Baso # Seg Neutrophils % Seg Neuts % (Manual) Lymphocytes % (Manual) Monocytes % (Manual) Eosinophils % (Manual) Basophils % (Manual) Nucleated RBC % Seg Neutrophils # Seg Neutrophils # Man Lymphocytes # (Manual) Monocytes # (Manual) Eosinophils # (Manual) Basophils # (Manual) PT INR Fibrinogen dRVVT Confirm Interp Factor V Activity POC ABG pH POC ABG pCO2 POC ABG pO2 ABG pO2 ABG HCO3 ABG Base Excess ABG Hemoglobin Oxyhemoglobin Sodium Potassium Chloride Carbon Dioxide BUN Creatinine Glucose POC Glucose 139 H 120 H Lactic Acid Calcium Phosphorus Magnesium Direct Bilirubin AST ALT Alkaline Phosphatase Lactate Dehydrogenase Troponin T C-Reactive Protein Total Protein Albumin Prealbumin Triglycerides Cholesterol LDL Cholesterol Direct HDL Cholesterol PTH Intact Urine pH Urine WBC (Auto) Urine Creatinine Urine Total Protein Fluid Total Protein Vancomycin Trough Rheumatoid Factor Complement C4 Miscellaneous Test Crossmatch 12/30/16 12/30/16 12/30/16 04:20 04:20 05:43 WBC 15.6 H RBC 2.81 L Hgb 8.0 L Hct 24.0 L MCV MCH MCHC RDW 16.9 H Plt Count Lymph % (Auto) [place] % (Auto) Lymph # [place] # 1.0 H Baso # Seg Neutrophils % 76.2 H Seg Neuts % (Manual) Lymphocytes % (Manual) Monocytes % (Manual) Eosinophils % (Manual) Basophils % (Manual) Nucleated RBC % Seg Neutrophils # 11.9 H Seg Neutrophils # Man Lymphocytes # (Manual) Monocytes # (Manual) Eosinophils # (Manual) Basophils # (Manual) PT INR Fibrinogen dRVVT Confirm Interp Factor V Activity POC ABG pH POC ABG pCO2 POC ABG pO2 ABG pO2 ABG HCO3 ABG Base Excess ABG Hemoglobin Oxyhemoglobin Sodium Potassium Chloride Carbon Dioxide BUN 87 H Creatinine 1.8 H Glucose 119 H POC Glucose 115 H Lactic Acid Calcium Phosphorus Magnesium Direct Bilirubin AST ALT Alkaline Phosphatase Lactate Dehydrogenase Troponin T C-Reactive Protein Total Protein Albumin Prealbumin Triglycerides Cholesterol LDL Cholesterol Direct HDL Cholesterol PTH Intact Urine pH Urine WBC (Auto) Urine Creatinine Urine Total Protein Fluid Total Protein Vancomycin Trough Rheumatoid Factor Complement C4 Miscellaneous Test Crossmatch 12/30/16 12/30/16 12/31/16 17:27 23:21 04:00 WBC RBC Hgb Hct MCV MCH MCHC RDW Plt Count Lymph % (Auto) [place] % (Auto) Lymph # [place] # Baso # Seg Neutrophils % Seg Neuts % (Manual) Lymphocytes % (Manual) Monocytes % (Manual) Eosinophils % (Manual) Basophils % (Manual) Nucleated RBC % Seg Neutrophils # Seg Neutrophils # Man Lymphocytes # (Manual) Monocytes # (Manual) Eosinophils # (Manual) Basophils # (Manual) PT INR Fibrinogen dRVVT Confirm Interp Factor V Activity POC ABG pH POC ABG pCO2 POC ABG pO2 ABG pO2 ABG HCO3 ABG Base Excess ABG Hemoglobin Oxyhemoglobin Sodium Potassium Chloride Carbon Dioxide BUN 59 H Creatinine Glucose 298 H POC Glucose 144 H 125 H Lactic Acid Calcium Phosphorus Magnesium Direct Bilirubin AST ALT Alkaline Phosphatase Lactate Dehydrogenase Troponin T C-Reactive Protein Total Protein Albumin Prealbumin Triglycerides Cholesterol LDL Cholesterol Direct HDL Cholesterol PTH Intact Urine pH Urine WBC (Auto) Urine Creatinine Urine Total Protein Fluid Total Protein Vancomycin Trough Rheumatoid Factor Complement C4 Miscellaneous Test Crossmatch 12/31/16 12/31/16 12/31/16 05:11 12:18 18:17 WBC RBC Hgb Hct MCV MCH MCHC RDW Plt Count Lymph % (Auto) [place] % (Auto) Lymph # [place] # Baso # Seg Neutrophils % Seg Neuts % (Manual) Lymphocytes % (Manual) Monocytes % (Manual) Eosinophils % (Manual) Basophils % (Manual) Nucleated RBC % Seg Neutrophils # Seg Neutrophils # Man Lymphocytes # (Manual) Monocytes # (Manual) Eosinophils # (Manual) Basophils # (Manual) PT INR Fibrinogen dRVVT Confirm Interp Factor V Activity POC ABG pH POC ABG pCO2 POC ABG pO2 ABG pO2 ABG HCO3 ABG Base Excess ABG Hemoglobin Oxyhemoglobin Sodium Potassium Chloride Carbon Dioxide BUN Creatinine Glucose POC Glucose 167 H 125 H 133 H Lactic Acid Calcium Phosphorus Magnesium Direct Bilirubin AST ALT Alkaline Phosphatase Lactate Dehydrogenase Troponin T C-Reactive Protein Total Protein Albumin Prealbumin Triglycerides Cholesterol LDL Cholesterol Direct HDL Cholesterol PTH Intact Urine pH Urine WBC (Auto) Urine Creatinine Urine Total Protein Fluid Total Protein Vancomycin Trough Rheumatoid Factor Complement C4 Miscellaneous Test Crossmatch 12/31/16 01/01/17 01/01/17 23:55 05:00 05:12 WBC RBC Hgb Hct MCV MCH MCHC RDW Plt Count Lymph % (Auto) [place] % (Auto) Lymph # [place] # Baso # Seg Neutrophils % Seg Neuts % (Manual) Lymphocytes % (Manual) Monocytes % (Manual) Eosinophils % (Manual) Basophils % (Manual) Nucleated RBC % Seg Neutrophils # Seg Neutrophils # Man Lymphocytes # (Manual) Monocytes # (Manual) Eosinophils # (Manual) Basophils # (Manual) PT INR Fibrinogen dRVVT Confirm Interp Factor V Activity POC ABG pH POC ABG pCO2 POC ABG pO2 ABG pO2 ABG HCO3 ABG Base Excess ABG Hemoglobin Oxyhemoglobin Sodium Potassium Chloride Carbon Dioxide BUN 76 H Creatinine 1.5 H Glucose 109 H POC Glucose 129 H 129 H Lactic Acid Calcium Phosphorus Magnesium Direct Bilirubin AST ALT Alkaline Phosphatase 536 H Lactate Dehydrogenase Troponin T C-Reactive Protein Total Protein Albumin 1.5 L Prealbumin Triglycerides Cholesterol LDL Cholesterol Direct HDL Cholesterol PTH Intact Urine pH Urine WBC (Auto) Urine Creatinine Urine Total Protein Fluid Total Protein Vancomycin Trough Rheumatoid Factor Complement C4 Miscellaneous Test Crossmatch 01/01/17 01/01/17 01/01/17 12:25 17:01 23:32 WBC RBC Hgb Hct MCV MCH MCHC RDW Plt Count Lymph % (Auto) [place] % (Auto) Lymph # [place] # Baso # Seg Neutrophils % Seg Neuts % (Manual) Lymphocytes % (Manual) Monocytes % (Manual) Eosinophils % (Manual) Basophils % (Manual) Nucleated RBC % Seg Neutrophils # Seg Neutrophils # Man Lymphocytes # (Manual) Monocytes # (Manual) Eosinophils # (Manual) Basophils # (Manual) PT INR Fibrinogen dRVVT Confirm Interp Factor V Activity POC ABG pH POC ABG pCO2 POC ABG pO2 ABG pO2 ABG HCO3 ABG Base Excess ABG Hemoglobin Oxyhemoglobin Sodium Potassium Chloride Carbon Dioxide BUN Creatinine Glucose POC Glucose 140 H 142 H 112 H Lactic Acid Calcium Phosphorus Magnesium Direct Bilirubin AST ALT Alkaline Phosphatase Lactate Dehydrogenase Troponin T C-Reactive Protein Total Protein Albumin Prealbumin Triglycerides Cholesterol LDL Cholesterol Direct HDL Cholesterol PTH Intact Urine pH Urine WBC (Auto) Urine Creatinine Urine Total Protein Fluid Total Protein Vancomycin Trough Rheumatoid Factor Complement C4 Miscellaneous Test Crossmatch 01/02/17 01/02/17 01/02/17 04:56 06:00 11:37 WBC RBC Hgb Hct MCV MCH MCHC RDW Plt Count Lymph % (Auto) [place] % (Auto) Lymph # [place] # Baso # Seg Neutrophils % Seg Neuts % (Manual) Lymphocytes % (Manual) Monocytes % (Manual) Eosinophils % (Manual) Basophils % (Manual) Nucleated RBC % Seg Neutrophils # Seg Neutrophils # Man Lymphocytes # (Manual) Monocytes # (Manual) Eosinophils # (Manual) Basophils # (Manual) PT INR Fibrinogen dRVVT Confirm Interp Factor V Activity POC ABG pH POC ABG pCO2 POC ABG pO2 ABG pO2 ABG HCO3 ABG Base Excess ABG Hemoglobin Oxyhemoglobin Sodium Potassium Chloride Carbon Dioxide BUN 88 H Creatinine 1.7 H Glucose 113 H POC Glucose 136 H 200 H Lactic Acid Calcium Phosphorus Magnesium Direct Bilirubin AST ALT Alkaline Phosphatase Lactate Dehydrogenase Troponin T C-Reactive Protein Total Protein Albumin Prealbumin Triglycerides Cholesterol LDL Cholesterol Direct HDL Cholesterol PTH Intact Urine pH Urine WBC (Auto) Urine Creatinine Urine Total Protein Fluid Total Protein Vancomycin Trough Rheumatoid Factor Complement C4 Miscellaneous Test Crossmatch 01/02/17 01/02/17 01/03/17 17:42 22:52 04:54 WBC RBC Hgb Hct MCV MCH MCHC RDW Plt Count Lymph % (Auto) [place] % (Auto) Lymph # [place] # Baso # Seg Neutrophils % Seg Neuts % (Manual) Lymphocytes % (Manual) Monocytes % (Manual) Eosinophils % (Manual) Basophils % (Manual) Nucleated RBC % Seg Neutrophils # Seg Neutrophils # Man Lymphocytes # (Manual) Monocytes # (Manual) Eosinophils # (Manual) Basophils # (Manual) PT INR Fibrinogen dRVVT Confirm Interp Factor V Activity POC ABG pH POC ABG pCO2 POC ABG pO2 ABG pO2 ABG HCO3 ABG Base Excess ABG Hemoglobin Oxyhemoglobin Sodium Potassium Chloride Carbon Dioxide BUN Creatinine Glucose POC Glucose 112 H 133 H 111 H Lactic Acid Calcium Phosphorus Magnesium Direct Bilirubin AST ALT Alkaline Phosphatase Lactate Dehydrogenase Troponin T C-Reactive Protein Total Protein Albumin Prealbumin Triglycerides Cholesterol LDL Cholesterol Direct HDL Cholesterol PTH Intact Urine pH Urine WBC (Auto) Urine Creatinine Urine Total Protein Fluid Total Protein Vancomycin Trough Rheumatoid Factor Complement C4 Miscellaneous Test Crossmatch 01/03/17 01/03/17 01/03/17 05:00 05:00 14:02 WBC 11.2 H RBC 2.56 L Hgb 7.2 L Hct 22.3 L MCV MCH MCHC RDW 17.3 H Plt Count Lymph % (Auto) [place] % (Auto) 10.0 H Lymph # [place] # 1.1 H Baso # Seg Neutrophils % 70.5 H Seg Neuts % (Manual) Lymphocytes % (Manual) Monocytes % (Manual) Eosinophils % (Manual) Basophils % (Manual) Nucleated RBC % Seg Neutrophils # 7.9 H Seg Neutrophils # Man Lymphocytes # (Manual) Monocytes # (Manual) Eosinophils # (Manual) Basophils # (Manual) PT INR Fibrinogen dRVVT Confirm Interp Factor V Activity POC ABG pH POC ABG pCO2 POC ABG pO2 ABG pO2 ABG HCO3 ABG Base Excess ABG Hemoglobin Oxyhemoglobin Sodium Potassium Chloride Carbon Dioxide BUN 60 H Creatinine 1.3 H Glucose 110 H POC Glucose 119 H Lactic Acid Calcium Phosphorus Magnesium Direct Bilirubin AST ALT Alkaline Phosphatase Lactate Dehydrogenase Troponin T C-Reactive Protein Total Protein Albumin Prealbumin Triglycerides Cholesterol LDL Cholesterol Direct HDL Cholesterol PTH Intact Urine pH Urine WBC (Auto) Urine Creatinine Urine Total Protein Fluid Total Protein Vancomycin Trough Rheumatoid Factor Complement C4 Miscellaneous Test Crossmatch 01/03/17 01/03/17 01/04/17 18:13 23:40 05:57 WBC RBC Hgb Hct MCV MCH MCHC RDW Plt Count Lymph % (Auto) [place] % (Auto) Lymph # [place] # Baso # Seg Neutrophils % Seg Neuts % (Manual) Lymphocytes % (Manual) Monocytes % (Manual) Eosinophils % (Manual) Basophils % (Manual) Nucleated RBC % Seg Neutrophils # Seg Neutrophils # Man Lymphocytes # (Manual) Monocytes # (Manual) Eosinophils # (Manual) Basophils # (Manual) PT INR Fibrinogen dRVVT Confirm Interp Factor V Activity POC ABG pH POC ABG pCO2 POC ABG pO2 ABG pO2 ABG HCO3 ABG Base Excess ABG Hemoglobin Oxyhemoglobin Sodium Potassium Chloride Carbon Dioxide BUN Creatinine Glucose POC Glucose 107 H 129 H 111 H Lactic Acid Calcium Phosphorus Magnesium Direct Bilirubin AST ALT Alkaline Phosphatase Lactate Dehydrogenase Troponin T C-Reactive Protein Total Protein Albumin Prealbumin Triglycerides Cholesterol LDL Cholesterol Direct HDL Cholesterol PTH Intact Urine pH Urine WBC (Auto) Urine Creatinine Urine Total Protein Fluid Total Protein Vancomycin Trough Rheumatoid Factor Complement C4 Miscellaneous Test Crossmatch 01/04/17 01/04/17 01/04/17 12:46 15:27 17:11 WBC RBC Hgb Hct MCV MCH MCHC RDW Plt Count Lymph % (Auto) [place] % (Auto) Lymph # [place] # Baso # Seg Neutrophils % Seg Neuts % (Manual) Lymphocytes % (Manual) Monocytes % (Manual) Eosinophils % (Manual) Basophils % (Manual) Nucleated RBC % Seg Neutrophils # Seg Neutrophils # Man Lymphocytes # (Manual) Monocytes # (Manual) Eosinophils # (Manual) Basophils # (Manual) PT INR Fibrinogen dRVVT Confirm Interp Factor V Activity POC ABG pH POC ABG pCO2 POC ABG pO2 ABG pO2 ABG HCO3 ABG Base Excess ABG Hemoglobin Oxyhemoglobin Sodium Potassium Chloride Carbon Dioxide BUN 43 H Creatinine Glucose 124 H POC Glucose 159 H 125 H Lactic Acid Calcium 8.0 L Phosphorus 2.10 L Magnesium Direct Bilirubin AST ALT Alkaline Phosphatase Lactate Dehydrogenase Troponin T C-Reactive Protein Total Protein Albumin Prealbumin Triglycerides Cholesterol LDL Cholesterol Direct HDL Cholesterol PTH Intact Urine pH Urine WBC (Auto) Urine Creatinine Urine Total Protein Fluid Total Protein Vancomycin Trough Rheumatoid Factor Complement C4 Miscellaneous Test Crossmatch 01/04/17 01/05/17 01/05/17 23:31 04:00 05:46 WBC RBC Hgb Hct MCV MCH MCHC RDW Plt Count Lymph % (Auto) [place] % (Auto) Lymph # [place] # Baso # Seg Neutrophils % Seg Neuts % (Manual) Lymphocytes % (Manual) Monocytes % (Manual) Eosinophils % (Manual) Basophils % (Manual) Nucleated RBC % Seg Neutrophils # Seg Neutrophils # Man Lymphocytes # (Manual) Monocytes # (Manual) Eosinophils # (Manual) Basophils # (Manual) PT INR Fibrinogen dRVVT Confirm Interp Factor V Activity POC ABG pH POC ABG pCO2 POC ABG pO2 ABG pO2 ABG HCO3 ABG Base Excess ABG Hemoglobin Oxyhemoglobin Sodium Potassium Chloride Carbon Dioxide BUN 52 H Creatinine 1.3 H Glucose 113 H POC Glucose 123 H 118 H Lactic Acid Calcium Phosphorus 2.40 L Magnesium Direct Bilirubin AST ALT Alkaline Phosphatase Lactate Dehydrogenase Troponin T C-Reactive Protein Total Protein Albumin Prealbumin Triglycerides Cholesterol LDL Cholesterol Direct HDL Cholesterol PTH Intact Urine pH Urine WBC (Auto) Urine Creatinine Urine Total Protein Fluid Total Protein Vancomycin Trough Rheumatoid Factor Complement C4 Miscellaneous Test Crossmatch 01/05/17 01/05/17 01/05/17 11:41 17:48 23:27 WBC RBC Hgb Hct MCV MCH MCHC RDW Plt Count Lymph % (Auto) [place] % (Auto) Lymph # [place] # Baso # Seg Neutrophils % Seg Neuts % (Manual) Lymphocytes % (Manual) Monocytes % (Manual) Eosinophils % (Manual) Basophils % (Manual) Nucleated RBC % Seg Neutrophils # Seg Neutrophils # Man Lymphocytes # (Manual) Monocytes # (Manual) Eosinophils # (Manual) Basophils # (Manual) PT INR Fibrinogen dRVVT Confirm Interp Factor V Activity POC ABG pH POC ABG pCO2 POC ABG pO2 ABG pO2 ABG HCO3 ABG Base Excess ABG Hemoglobin Oxyhemoglobin Sodium Potassium Chloride Carbon Dioxide BUN Creatinine Glucose POC Glucose 163 H 142 H 155 H Lactic Acid Calcium Phosphorus Magnesium Direct Bilirubin AST ALT Alkaline Phosphatase Lactate Dehydrogenase Troponin T C-Reactive Protein Total Protein Albumin Prealbumin Triglycerides Cholesterol LDL Cholesterol Direct HDL Cholesterol PTH Intact Urine pH Urine WBC (Auto) Urine Creatinine Urine Total Protein Fluid Total Protein Vancomycin Trough Rheumatoid Factor Complement C4 Miscellaneous Test Crossmatch 01/06/17 01/06/17 01/06/17 05:20 07:35 11:18 WBC RBC Hgb Hct MCV MCH MCHC RDW Plt Count Lymph % (Auto) [place] % (Auto) Lymph # [place] # Baso # Seg Neutrophils % Seg Neuts % (Manual) Lymphocytes % (Manual) Monocytes % (Manual) Eosinophils % (Manual) Basophils % (Manual) Nucleated RBC % Seg Neutrophils # Seg Neutrophils # Man Lymphocytes # (Manual) Monocytes # (Manual) Eosinophils # (Manual) Basophils # (Manual) PT INR Fibrinogen dRVVT Confirm Interp Factor V Activity POC ABG pH POC ABG pCO2 POC ABG pO2 ABG pO2 ABG HCO3 ABG Base Excess ABG Hemoglobin Oxyhemoglobin Sodium Potassium Chloride Carbon Dioxide BUN 74 H Creatinine 1.6 H Glucose 135 H POC Glucose 108 H 149 H Lactic Acid Calcium Phosphorus Magnesium Direct Bilirubin AST ALT Alkaline Phosphatase Lactate Dehydrogenase Troponin T C-Reactive Protein Total Protein Albumin Prealbumin Triglycerides Cholesterol LDL Cholesterol Direct HDL Cholesterol PTH Intact Urine pH Urine WBC (Auto) Urine Creatinine Urine Total Protein Fluid Total Protein Vancomycin Trough Rheumatoid Factor Complement C4 Miscellaneous Test Crossmatch 01/06/17 01/07/17 01/07/17 17:17 00:23 05:31 WBC RBC Hgb Hct MCV MCH MCHC RDW Plt Count Lymph % (Auto) [place] % (Auto) Lymph # [place] # Baso # Seg Neutrophils % Seg Neuts % (Manual) Lymphocytes % (Manual) Monocytes % (Manual) Eosinophils % (Manual) Basophils % (Manual) Nucleated RBC % Seg Neutrophils # Seg Neutrophils # Man Lymphocytes # (Manual) Monocytes # (Manual) Eosinophils # (Manual) Basophils # (Manual) PT INR Fibrinogen dRVVT Confirm Interp Factor V Activity POC ABG pH POC ABG pCO2 POC ABG pO2 ABG pO2 ABG HCO3 ABG Base Excess ABG Hemoglobin Oxyhemoglobin Sodium Potassium Chloride Carbon Dioxide BUN Creatinine Glucose POC Glucose 146 H 165 H 153 H Lactic Acid Calcium Phosphorus Magnesium Direct Bilirubin AST ALT Alkaline Phosphatase Lactate Dehydrogenase Troponin T C-Reactive Protein Total Protein Albumin Prealbumin Triglycerides Cholesterol LDL Cholesterol Direct HDL Cholesterol PTH Intact Urine pH Urine WBC (Auto) Urine Creatinine Urine Total Protein Fluid Total Protein Vancomycin Trough Rheumatoid Factor Complement C4 Miscellaneous Test Crossmatch 01/07/17 01/07/17 01/07/17 06:00 11:39 17:11 WBC RBC Hgb Hct MCV MCH MCHC RDW Plt Count Lymph % (Auto) [place] % (Auto) Lymph # [place] # Baso # Seg Neutrophils % Seg Neuts % (Manual) Lymphocytes % (Manual) Monocytes % (Manual) Eosinophils % (Manual) Basophils % (Manual) Nucleated RBC % Seg Neutrophils # Seg Neutrophils # Man Lymphocytes # (Manual) Monocytes # (Manual) Eosinophils # (Manual) Basophils # (Manual) PT INR Fibrinogen dRVVT Confirm Interp Factor V Activity POC ABG pH POC ABG pCO2 POC ABG pO2 ABG pO2 ABG HCO3 ABG Base Excess ABG Hemoglobin Oxyhemoglobin Sodium Potassium Chloride Carbon Dioxide BUN 42 H Creatinine Glucose 175 H POC Glucose 163 H 163 H Lactic Acid Calcium Phosphorus 2.40 L D Magnesium Direct Bilirubin AST ALT Alkaline Phosphatase Lactate Dehydrogenase Troponin T C-Reactive Protein Total Protein Albumin Prealbumin Triglycerides Cholesterol LDL Cholesterol Direct HDL Cholesterol PTH Intact Urine pH Urine WBC (Auto) Urine Creatinine Urine Total Protein Fluid Total Protein Vancomycin Trough Rheumatoid Factor Complement C4 Miscellaneous Test Crossmatch 01/07/17 01/08/17 01/08/17 23:40 05:00 05:00 WBC 27.4 H RBC 2.27 L Hgb 6.1 L Hct 20.4 L MCV MCH 27 L MCHC RDW 17.8 H Plt Count Lymph % (Auto) [place] % (Auto) Lymph # [place] # Baso # Seg Neutrophils % Seg Neuts % (Manual) Lymphocytes % (Manual) Monocytes % (Manual) Eosinophils % (Manual) Basophils % (Manual) Nucleated RBC % Seg Neutrophils # Seg Neutrophils # Man Lymphocytes # (Manual) Monocytes # (Manual) Eosinophils # (Manual) Basophils # (Manual) PT INR Fibrinogen dRVVT Confirm Interp Factor V Activity POC ABG pH POC ABG pCO2 POC ABG pO2 ABG pO2 ABG HCO3 ABG Base Excess ABG Hemoglobin Oxyhemoglobin Sodium Potassium Chloride Carbon Dioxide 16 L D BUN 62 H Creatinine 1.6 H D Glucose 103 H POC Glucose 135 H Lactic Acid Calcium Phosphorus Magnesium Direct Bilirubin AST ALT Alkaline Phosphatase Lactate Dehydrogenase Troponin T C-Reactive Protein Total Protein Albumin Prealbumin Triglycerides Cholesterol LDL Cholesterol Direct HDL Cholesterol PTH Intact Urine pH Urine WBC (Auto) Urine Creatinine Urine Total Protein Fluid Total Protein Vancomycin Trough Rheumatoid Factor Complement C4 Miscellaneous Test Crossmatch 01/08/17 01/08/17 01/08/17 05:25 10:37 10:37 WBC RBC Hgb Hct MCV MCH MCHC RDW Plt Count Lymph % (Auto) [place] % (Auto) Lymph # [place] # Baso # Seg Neutrophils % Seg Neuts % (Manual) Lymphocytes % (Manual) Monocytes % (Manual) Eosinophils % (Manual) Basophils % (Manual) Nucleated RBC % Seg Neutrophils # Seg Neutrophils # Man Lymphocytes # (Manual) Monocytes # (Manual) Eosinophils # (Manual) Basophils # (Manual) PT INR Fibrinogen dRVVT Confirm Interp Factor V Activity POC ABG pH POC ABG pCO2 POC ABG pO2 ABG pO2 ABG HCO3 ABG Base Excess ABG Hemoglobin Oxyhemoglobin Sodium Potassium Chloride Carbon Dioxide BUN Creatinine Glucose POC Glucose 106 H Lactic Acid Calcium Phosphorus Magnesium Direct Bilirubin AST ALT Alkaline Phosphatase Lactate Dehydrogenase Troponin T C-Reactive Protein 24.40 H Total Protein Albumin Prealbumin Triglycerides Cholesterol LDL Cholesterol Direct HDL Cholesterol PTH Intact Urine pH Urine WBC (Auto) Urine Creatinine Urine Total Protein Fluid Total Protein Vancomycin Trough Rheumatoid Factor Complement C4 Miscellaneous Test Crossmatch See Detail 01/08/17 01/08/17 01/08/17 10:37 11:33 15:15 WBC RBC Hgb Hct MCV MCH MCHC RDW Plt Count Lymph % (Auto) [place] % (Auto) Lymph # [place] # Baso # Seg Neutrophils % Seg Neuts % (Manual) Lymphocytes % (Manual) Monocytes % (Manual) Eosinophils % (Manual) Basophils % (Manual) Nucleated RBC % Seg Neutrophils # Seg Neutrophils # Man Lymphocytes # (Manual) Monocytes # (Manual) Eosinophils # (Manual) Basophils # (Manual) PT INR Fibrinogen dRVVT Confirm Interp Factor V Activity POC ABG pH POC ABG pCO2 POC ABG pO2 ABG pO2 ABG HCO3 ABG Base Excess ABG Hemoglobin Oxyhemoglobin Sodium Potassium Chloride Carbon Dioxide BUN Creatinine Glucose POC Glucose 157 H Lactic Acid 9.70 H* 9.10 H* Calcium Phosphorus Magnesium Direct Bilirubin AST ALT Alkaline Phosphatase Lactate Dehydrogenase Troponin T C-Reactive Protein Total Protein Albumin Prealbumin Triglycerides Cholesterol LDL Cholesterol Direct HDL Cholesterol PTH Intact Urine pH Urine WBC (Auto) Urine Creatinine Urine Total Protein Fluid Total Protein Vancomycin Trough Rheumatoid Factor Complement C4 Miscellaneous Test Crossmatch 01/08/17 01/08/17 01/09/17 17:19 23:12 04:40 WBC RBC Hgb Hct MCV MCH MCHC RDW Plt Count Lymph % (Auto) [place] % (Auto) Lymph # [place] # Baso # Seg Neutrophils % Seg Neuts % (Manual) Lymphocytes % (Manual) Monocytes % (Manual) Eosinophils % (Manual) Basophils % (Manual) Nucleated RBC % Seg Neutrophils # Seg Neutrophils # Man Lymphocytes # (Manual) Monocytes # (Manual) Eosinophils # (Manual) Basophils # (Manual) PT INR Fibrinogen dRVVT Confirm Interp Factor V Activity POC ABG pH POC ABG pCO2 POC ABG pO2 ABG pO2 ABG HCO3 ABG Base Excess ABG Hemoglobin Oxyhemoglobin Sodium 147 H Potassium Chloride Carbon Dioxide BUN 82 H Creatinine 1.8 H Glucose 137 H POC Glucose 164 H 157 H Lactic Acid Calcium Phosphorus Magnesium Direct Bilirubin AST ALT Alkaline Phosphatase Lactate Dehydrogenase Troponin T C-Reactive Protein Total Protein Albumin Prealbumin Triglycerides Cholesterol LDL Cholesterol Direct HDL Cholesterol PTH Intact Urine pH Urine WBC (Auto) Urine Creatinine Urine Total Protein Fluid Total Protein Vancomycin Trough Rheumatoid Factor Complement C4 Miscellaneous Test Crossmatch 01/09/17 01/09/17 01/09/17 05:42 08:22 10:57 WBC RBC Hgb Hct MCV MCH MCHC RDW Plt Count Lymph % (Auto) [place] % (Auto) Lymph # [place] # Baso # Seg Neutrophils % Seg Neuts % (Manual) Lymphocytes % (Manual) Monocytes % (Manual) Eosinophils % (Manual) Basophils % (Manual) Nucleated RBC % Seg Neutrophils # Seg Neutrophils # Man Lymphocytes # (Manual) Monocytes # (Manual) Eosinophils # (Manual) Basophils # (Manual) PT INR Fibrinogen dRVVT Confirm Interp Factor V Activity POC ABG pH POC ABG pCO2 POC ABG pO2 ABG pO2 ABG HCO3 ABG Base Excess ABG Hemoglobin Oxyhemoglobin Sodium Potassium Chloride Carbon Dioxide BUN Creatinine Glucose POC Glucose 156 H 122 H Lactic Acid 2.30 H* Calcium Phosphorus Magnesium Direct Bilirubin AST ALT Alkaline Phosphatase Lactate Dehydrogenase Troponin T C-Reactive Protein Total Protein Albumin Prealbumin Triglycerides Cholesterol LDL Cholesterol Direct HDL Cholesterol PTH Intact Urine pH Urine WBC (Auto) Urine Creatinine Urine Total Protein Fluid Total Protein Vancomycin Trough Rheumatoid Factor Complement C4 Miscellaneous Test Crossmatch 01/09/17 01/09/17 01/09/17 13:30 17:14 18:45 WBC RBC Hgb Hct MCV MCH MCHC RDW Plt Count Lymph % (Auto) [place] % (Auto) Lymph # [place] # Baso # Seg Neutrophils % Seg Neuts % (Manual) Lymphocytes % (Manual) Monocytes % (Manual) Eosinophils % (Manual) Basophils % (Manual) Nucleated RBC % Seg Neutrophils # Seg Neutrophils # Man Lymphocytes # (Manual) Monocytes # (Manual) Eosinophils # (Manual) Basophils # (Manual) PT INR Fibrinogen dRVVT Confirm Interp Factor V Activity POC ABG pH POC ABG pCO2 POC ABG pO2 ABG pO2 ABG HCO3 ABG Base Excess ABG Hemoglobin Oxyhemoglobin Sodium Potassium Chloride Carbon Dioxide BUN Creatinine Glucose POC Glucose 127 H Lactic Acid Calcium Phosphorus Magnesium Direct Bilirubin AST ALT Alkaline Phosphatase Lactate Dehydrogenase Troponin T C-Reactive Protein 24.70 H Total Protein Albumin Prealbumin Triglycerides Cholesterol LDL Cholesterol Direct HDL Cholesterol PTH Intact Urine pH Urine WBC (Auto) Urine Creatinine Urine Total Protein Fluid Total Protein Vancomycin Trough Rheumatoid Factor Complement C4 Miscellaneous Test Flexitest 1 H Crossmatch 01/10/17 01/10/17 01/10/17 01:21 04:00 04:00 WBC 18.1 H RBC 3.22 L Hgb 8.8 L Hct 27.0 L D MCV MCH 27 L MCHC RDW 17.0 H Plt Count Lymph % (Auto) [place] % (Auto) Lymph # [place] # Baso # Seg Neutrophils % Seg Neuts % (Manual) Lymphocytes % (Manual) Monocytes % (Manual) Eosinophils % (Manual) Basophils % (Manual) Nucleated RBC % Seg Neutrophils # Seg Neutrophils # Man Lymphocytes # (Manual) Monocytes # (Manual) Eosinophils # (Manual) Basophils # (Manual) PT INR Fibrinogen dRVVT Confirm Interp Factor V Activity POC ABG pH POC ABG pCO2 POC ABG pO2 ABG pO2 ABG HCO3 ABG Base Excess ABG Hemoglobin Oxyhemoglobin Sodium Potassium Chloride Carbon Dioxide BUN 59 H Creatinine 1.3 H Glucose 122 H POC Glucose 160 H Lactic Acid Calcium Phosphorus Magnesium Direct Bilirubin AST ALT Alkaline Phosphatase Lactate Dehydrogenase Troponin T C-Reactive Protein Total Protein Albumin Prealbumin Triglycerides Cholesterol LDL Cholesterol Direct HDL Cholesterol PTH Intact Urine pH Urine WBC (Auto) Urine Creatinine Urine Total Protein Fluid Total Protein Vancomycin Trough Rheumatoid Factor Complement C4 Miscellaneous Test Crossmatch 01/10/17 01/10/17 01/10/17 05:36 12:14 17:55 WBC RBC Hgb Hct MCV MCH MCHC RDW Plt Count Lymph % (Auto) [place] % (Auto) Lymph # [place] # Baso # Seg Neutrophils % Seg Neuts % (Manual) Lymphocytes % (Manual) Monocytes % (Manual) Eosinophils % (Manual) Basophils % (Manual) Nucleated RBC % Seg Neutrophils # Seg Neutrophils # Man Lymphocytes # (Manual) Monocytes # (Manual) Eosinophils # (Manual) Basophils # (Manual) PT INR Fibrinogen dRVVT Confirm Interp Factor V Activity POC ABG pH POC ABG pCO2 POC ABG pO2 ABG pO2 ABG HCO3 ABG Base Excess ABG Hemoglobin Oxyhemoglobin Sodium Potassium Chloride Carbon Dioxide BUN Creatinine Glucose POC Glucose 163 H 120 H 144 H Lactic Acid Calcium Phosphorus Magnesium Direct Bilirubin AST ALT Alkaline Phosphatase Lactate Dehydrogenase Troponin T C-Reactive Protein Total Protein Albumin Prealbumin Triglycerides Cholesterol LDL Cholesterol Direct HDL Cholesterol PTH Intact Urine pH Urine WBC (Auto) Urine Creatinine Urine Total Protein Fluid Total Protein Vancomycin Trough Rheumatoid Factor Complement C4 Miscellaneous Test Crossmatch 01/11/17 01/11/17 01/11/17 00:09 04:00 04:00 WBC 15.8 H RBC 3.04 L Hgb 8.2 L Hct 25.5 L MCV MCH 27 L MCHC RDW 17.3 H Plt Count Lymph % (Auto) [place] % (Auto) Lymph # [place] # Baso # Seg Neutrophils % Seg Neuts % (Manual) Lymphocytes % (Manual) Monocytes % (Manual) Eosinophils % (Manual) Basophils % (Manual) Nucleated RBC % Seg Neutrophils # Seg Neutrophils # Man Lymphocytes # (Manual) Monocytes # (Manual) Eosinophils # (Manual) Basophils # (Manual) PT INR Fibrinogen dRVVT Confirm Interp Factor V Activity POC ABG pH POC ABG pCO2 POC ABG pO2 ABG pO2 ABG HCO3 ABG Base Excess ABG Hemoglobin Oxyhemoglobin Sodium Potassium Chloride Carbon Dioxide BUN 78 H Creatinine 1.6 H Glucose 109 H POC Glucose 122 H Lactic Acid Calcium Phosphorus Magnesium Direct Bilirubin AST ALT Alkaline Phosphatase Lactate Dehydrogenase Troponin T C-Reactive Protein Total Protein Albumin Prealbumin Triglycerides Cholesterol LDL Cholesterol Direct HDL Cholesterol PTH Intact Urine pH Urine WBC (Auto) Urine Creatinine Urine Total Protein Fluid Total Protein Vancomycin Trough Rheumatoid Factor Complement C4 Miscellaneous Test Crossmatch 01/11/17 01/11/17 01/11/17 12:46 18:23 23:42 WBC RBC Hgb Hct MCV MCH MCHC RDW Plt Count Lymph % (Auto) [place] % (Auto) Lymph # [place] # Baso # Seg Neutrophils % Seg Neuts % (Manual) Lymphocytes % (Manual) Monocytes % (Manual) Eosinophils % (Manual) Basophils % (Manual) Nucleated RBC % Seg Neutrophils # Seg Neutrophils # Man Lymphocytes # (Manual) Monocytes # (Manual) Eosinophils # (Manual) Basophils # (Manual) PT INR Fibrinogen dRVVT Confirm Interp Factor V Activity POC ABG pH POC ABG pCO2 POC ABG pO2 ABG pO2 ABG HCO3 ABG Base Excess ABG Hemoglobin Oxyhemoglobin Sodium Potassium Chloride Carbon Dioxide BUN Creatinine Glucose POC Glucose 148 H 125 H 124 H Lactic Acid Calcium Phosphorus Magnesium Direct Bilirubin AST ALT Alkaline Phosphatase Lactate Dehydrogenase Troponin T C-Reactive Protein Total Protein Albumin Prealbumin Triglycerides Cholesterol LDL Cholesterol Direct HDL Cholesterol PTH Intact Urine pH Urine WBC (Auto) Urine Creatinine Urine Total Protein Fluid Total Protein Vancomycin Trough Rheumatoid Factor Complement C4 Miscellaneous Test Crossmatch 01/12/17 01/12/17 01/12/17 04:30 04:30 05:47 WBC 15.8 H RBC 3.31 L Hgb 8.9 L Hct 27.9 L MCV MCH 27 L MCHC RDW 17.4 H Plt Count Lymph % (Auto) [place] % (Auto) Lymph # [place] # Baso # Seg Neutrophils % Seg Neuts % (Manual) Lymphocytes % (Manual) Monocytes % (Manual) Eosinophils % (Manual) Basophils % (Manual) Nucleated RBC % Seg Neutrophils # Seg Neutrophils # Man Lymphocytes # (Manual) Monocytes # (Manual) Eosinophils # (Manual) Basophils # (Manual) PT INR Fibrinogen dRVVT Confirm Interp Factor V Activity POC ABG pH POC ABG pCO2 POC ABG pO2 ABG pO2 ABG HCO3 ABG Base Excess ABG Hemoglobin Oxyhemoglobin Sodium Potassium Chloride Carbon Dioxide BUN 57 H Creatinine Glucose 121 H POC Glucose 110 H Lactic Acid Calcium Phosphorus 2.10 L Magnesium Direct Bilirubin AST ALT Alkaline Phosphatase Lactate Dehydrogenase Troponin T C-Reactive Protein Total Protein Albumin Prealbumin Triglycerides Cholesterol LDL Cholesterol Direct HDL Cholesterol PTH Intact Urine pH Urine WBC (Auto) Urine Creatinine Urine Total Protein Fluid Total Protein Vancomycin Trough Rheumatoid Factor Complement C4 Miscellaneous Test Crossmatch 01/12/17 01/12/17 01/12/17 11:35 17:45 23:14 WBC RBC Hgb Hct MCV MCH MCHC RDW Plt Count Lymph % (Auto) [place] % (Auto) Lymph # [place] # Baso # Seg Neutrophils % Seg Neuts % (Manual) Lymphocytes % (Manual) Monocytes % (Manual) Eosinophils % (Manual) Basophils % (Manual) Nucleated RBC % Seg Neutrophils # Seg Neutrophils # Man Lymphocytes # (Manual) Monocytes # (Manual) Eosinophils # (Manual) Basophils # (Manual) PT INR Fibrinogen dRVVT Confirm Interp Factor V Activity POC ABG pH POC ABG pCO2 POC ABG pO2 ABG pO2 ABG HCO3 ABG Base Excess ABG Hemoglobin Oxyhemoglobin Sodium Potassium Chloride Carbon Dioxide BUN Creatinine Glucose POC Glucose 146 H 117 H 123 H Lactic Acid Calcium Phosphorus Magnesium Direct Bilirubin AST ALT Alkaline Phosphatase Lactate Dehydrogenase Troponin T C-Reactive Protein Total Protein Albumin Prealbumin Triglycerides Cholesterol LDL Cholesterol Direct HDL Cholesterol PTH Intact Urine pH Urine WBC (Auto) Urine Creatinine Urine Total Protein Fluid Total Protein Vancomycin Trough Rheumatoid Factor Complement C4 Miscellaneous Test Crossmatch 01/13/17 01/13/17 01/13/17 05:32 06:00 12:10 WBC RBC Hgb Hct MCV MCH MCHC RDW Plt Count Lymph % (Auto) [place] % (Auto) Lymph # [place] # Baso # Seg Neutrophils % Seg Neuts % (Manual) Lymphocytes % (Manual) Monocytes % (Manual) Eosinophils % (Manual) Basophils % (Manual) Nucleated RBC % Seg Neutrophils # Seg Neutrophils # Man Lymphocytes # (Manual) Monocytes # (Manual) Eosinophils # (Manual) Basophils # (Manual) PT INR Fibrinogen dRVVT Confirm Interp Factor V Activity POC ABG pH POC ABG pCO2 POC ABG pO2 ABG pO2 ABG HCO3 ABG Base Excess ABG Hemoglobin Oxyhemoglobin Sodium Potassium Chloride Carbon Dioxide BUN 80 H Creatinine 1.4 H Glucose 106 H POC Glucose 106 H Lactic Acid Calcium Phosphorus Magnesium Direct Bilirubin AST ALT Alkaline Phosphatase Lactate Dehydrogenase Troponin T C-Reactive Protein Total Protein Albumin Prealbumin Triglycerides Cholesterol LDL Cholesterol Direct HDL Cholesterol PTH Intact Urine pH Urine WBC (Auto) Urine Creatinine Urine Total Protein Fluid Total Protein 3.0 L Vancomycin Trough Rheumatoid Factor Complement C4 Miscellaneous Test Crossmatch 01/13/17 01/13/17 01/13/17 12:17 15:50 17:30 WBC RBC Hgb Hct MCV MCH MCHC RDW Plt Count Lymph % (Auto) [place] % (Auto) Lymph # [place] # Baso # Seg Neutrophils % Seg Neuts % (Manual) Lymphocytes % (Manual) Monocytes % (Manual) Eosinophils % (Manual) Basophils % (Manual) Nucleated RBC % Seg Neutrophils # Seg Neutrophils # Man Lymphocytes # (Manual) Monocytes # (Manual) Eosinophils # (Manual) Basophils # (Manual) PT 15.4 H INR 1.16 H Fibrinogen dRVVT Confirm Interp Factor V Activity POC ABG pH POC ABG pCO2 POC ABG pO2 ABG pO2 ABG HCO3 ABG Base Excess ABG Hemoglobin Oxyhemoglobin Sodium Potassium Chloride Carbon Dioxide BUN Creatinine Glucose POC Glucose 168 H 110 H Lactic Acid Calcium Phosphorus Magnesium Direct Bilirubin AST ALT Alkaline Phosphatase Lactate Dehydrogenase Troponin T C-Reactive Protein Total Protein Albumin Prealbumin Triglycerides Cholesterol LDL Cholesterol Direct HDL Cholesterol PTH Intact Urine pH Urine WBC (Auto) Urine Creatinine Urine Total Protein Fluid Total Protein Vancomycin Trough Rheumatoid Factor Complement C4 Miscellaneous Test Crossmatch 01/13/17 01/14/17 01/14/17 23:42 05:24 05:30 WBC RBC Hgb Hct MCV MCH MCHC RDW Plt Count Lymph % (Auto) [place] % (Auto) Lymph # [place] # Baso # Seg Neutrophils % Seg Neuts % (Manual) Lymphocytes % (Manual) Monocytes % (Manual) Eosinophils % (Manual) Basophils % (Manual) Nucleated RBC % Seg Neutrophils # Seg Neutrophils # Man Lymphocytes # (Manual) Monocytes # (Manual) Eosinophils # (Manual) Basophils # (Manual) PT INR Fibrinogen dRVVT Confirm Interp Factor V Activity POC ABG pH POC ABG pCO2 POC ABG pO2 ABG pO2 ABG HCO3 ABG Base Excess ABG Hemoglobin Oxyhemoglobin Sodium Potassium Chloride Carbon Dioxide BUN 58 H Creatinine Glucose 114 H POC Glucose 155 H 121 H Lactic Acid Calcium Phosphorus Magnesium Direct Bilirubin AST ALT Alkaline Phosphatase Lactate Dehydrogenase Troponin T C-Reactive Protein Total Protein Albumin Prealbumin Triglycerides Cholesterol LDL Cholesterol Direct HDL Cholesterol PTH Intact Urine pH Urine WBC (Auto) Urine Creatinine Urine Total Protein Fluid Total Protein Vancomycin Trough Rheumatoid Factor Complement C4 Miscellaneous Test Crossmatch 01/14/17 01/14/17 01/15/17 12:48 17:36 00:15 WBC RBC Hgb Hct MCV MCH MCHC RDW Plt Count Lymph % (Auto) [place] % (Auto) Lymph # [place] # Baso # Seg Neutrophils % Seg Neuts % (Manual) Lymphocytes % (Manual) Monocytes % (Manual) Eosinophils % (Manual) Basophils % (Manual) Nucleated RBC % Seg Neutrophils # Seg Neutrophils # Man Lymphocytes # (Manual) Monocytes # (Manual) Eosinophils # (Manual) Basophils # (Manual) PT INR Fibrinogen dRVVT Confirm Interp Factor V Activity POC ABG pH POC ABG pCO2 POC ABG pO2 ABG pO2 ABG HCO3 ABG Base Excess ABG Hemoglobin Oxyhemoglobin Sodium Potassium Chloride Carbon Dioxide BUN Creatinine Glucose POC Glucose 130 H 135 H 132 H Lactic Acid Calcium Phosphorus Magnesium Direct Bilirubin AST ALT Alkaline Phosphatase Lactate Dehydrogenase Troponin T C-Reactive Protein Total Protein Albumin Prealbumin Triglycerides Cholesterol LDL Cholesterol Direct HDL Cholesterol PTH Intact Urine pH Urine WBC (Auto) Urine Creatinine Urine Total Protein Fluid Total Protein Vancomycin Trough Rheumatoid Factor Complement C4 Miscellaneous Test Crossmatch 01/15/17 01/15/17 01/15/17 05:01 11:55 12:45 WBC 16.2 H RBC 3.00 L Hgb 8.1 L Hct 25.4 L MCV MCH 27 L MCHC RDW 17.6 H Plt Count Lymph % (Auto) 11.7 L [place] % (Auto) 7.8 H Lymph # [place] # 1.3 H Baso # Seg Neutrophils % 80.1 H Seg Neuts % (Manual) Lymphocytes % (Manual) Monocytes % (Manual) Eosinophils % (Manual) Basophils % (Manual) Nucleated RBC % Seg Neutrophils # 13.0 H Seg Neutrophils # Man Lymphocytes # (Manual) Monocytes # (Manual) Eosinophils # (Manual) Basophils # (Manual) PT INR Fibrinogen dRVVT Confirm Interp Factor V Activity POC ABG pH POC ABG pCO2 POC ABG pO2 ABG pO2 ABG HCO3 ABG Base Excess ABG Hemoglobin Oxyhemoglobin Sodium Potassium Chloride Carbon Dioxide BUN Creatinine Glucose POC Glucose 126 H 125 H Lactic Acid Calcium Phosphorus Magnesium Direct Bilirubin AST ALT Alkaline Phosphatase Lactate Dehydrogenase Troponin T C-Reactive Protein Total Protein Albumin Prealbumin Triglycerides Cholesterol LDL Cholesterol Direct HDL Cholesterol PTH Intact Urine pH Urine WBC (Auto) Urine Creatinine Urine Total Protein Fluid Total Protein Vancomycin Trough Rheumatoid Factor Complement C4 Miscellaneous Test Crossmatch 01/15/17 01/15/17 01/15/17 12:45 17:31 23:39 WBC RBC Hgb Hct MCV MCH MCHC RDW Plt Count Lymph % (Auto) [place] % (Auto) Lymph # [place] # Baso # Seg Neutrophils % Seg Neuts % (Manual) Lymphocytes % (Manual) Monocytes % (Manual) Eosinophils % (Manual) Basophils % (Manual) Nucleated RBC % Seg Neutrophils # Seg Neutrophils # Man Lymphocytes # (Manual) Monocytes # (Manual) Eosinophils # (Manual) Basophils # (Manual) PT INR Fibrinogen dRVVT Confirm Interp Factor V Activity POC ABG pH POC ABG pCO2 POC ABG pO2 ABG pO2 ABG HCO3 ABG Base Excess ABG Hemoglobin Oxyhemoglobin Sodium 136 L Potassium Chloride Carbon Dioxide BUN 87 H Creatinine 1.7 H Glucose 108 H POC Glucose 129 H 112 H Lactic Acid Calcium Phosphorus Magnesium Direct Bilirubin AST ALT Alkaline Phosphatase Lactate Dehydrogenase Troponin T C-Reactive Protein Total Protein Albumin Prealbumin Triglycerides Cholesterol LDL Cholesterol Direct HDL Cholesterol PTH Intact Urine pH Urine WBC (Auto) Urine Creatinine Urine Total Protein Fluid Total Protein Vancomycin Trough Rheumatoid Factor Complement C4 Miscellaneous Test Crossmatch 01/16/17 01/16/17 01/16/17 05:23 11:42 12:32 WBC RBC Hgb Hct MCV MCH MCHC RDW Plt Count Lymph % (Auto) [place] % (Auto) Lymph # [place] # Baso # Seg Neutrophils % Seg Neuts % (Manual) Lymphocytes % (Manual) Monocytes % (Manual) Eosinophils % (Manual) Basophils % (Manual) Nucleated RBC % Seg Neutrophils # Seg Neutrophils # Man Lymphocytes # (Manual) Monocytes # (Manual) Eosinophils # (Manual) Basophils # (Manual) PT INR Fibrinogen dRVVT Confirm Interp Factor V Activity POC ABG pH 7.499 H POC ABG pCO2 30.9 L POC ABG pO2 51 L ABG pO2 ABG HCO3 ABG Base Excess ABG Hemoglobin Oxyhemoglobin Sodium Potassium Chloride Carbon Dioxide BUN Creatinine Glucose POC Glucose 118 H 133 H Lactic Acid Calcium Phosphorus Magnesium Direct Bilirubin AST ALT Alkaline Phosphatase Lactate Dehydrogenase Troponin T C-Reactive Protein Total Protein Albumin Prealbumin Triglycerides Cholesterol LDL Cholesterol Direct HDL Cholesterol PTH Intact Urine pH Urine WBC (Auto) Urine Creatinine Urine Total Protein Fluid Total Protein Vancomycin Trough Rheumatoid Factor Complement C4 Miscellaneous Test Crossmatch 01/16/17 01/16/17 01/16/17 17:52 23:57 Unknown WBC RBC Hgb Hct MCV MCH MCHC RDW Plt Count Lymph % (Auto) [place] % (Auto) Lymph # [place] # Baso # Seg Neutrophils % Seg Neuts % (Manual) Lymphocytes % (Manual) Monocytes % (Manual) Eosinophils % (Manual) Basophils % (Manual) Nucleated RBC % Seg Neutrophils # Seg Neutrophils # Man Lymphocytes # (Manual) Monocytes # (Manual) Eosinophils # (Manual) Basophils # (Manual) PT INR Fibrinogen dRVVT Confirm Interp Factor V Activity POC ABG pH POC ABG pCO2 POC ABG pO2 ABG pO2 ABG HCO3 ABG Base Excess ABG Hemoglobin Oxyhemoglobin Sodium 135 L Potassium Chloride Carbon Dioxide BUN 101 H Creatinine 1.8 H Glucose 117 H POC Glucose 130 H 143 H Lactic Acid Calcium Phosphorus 5.80 H Magnesium Direct Bilirubin AST ALT Alkaline Phosphatase Lactate Dehydrogenase Troponin T C-Reactive Protein Total Protein Albumin Prealbumin Triglycerides Cholesterol LDL Cholesterol Direct HDL Cholesterol PTH Intact Urine pH Urine WBC (Auto) Urine Creatinine Urine Total Protein Fluid Total Protein Vancomycin Trough Rheumatoid Factor Complement C4 Miscellaneous Test Crossmatch 01/17/17 01/17/17 01/17/17 05:30 05:46 11:49 WBC RBC Hgb Hct MCV MCH MCHC RDW Plt Count Lymph % (Auto) [place] % (Auto) Lymph # [place] # Baso # Seg Neutrophils % Seg Neuts % (Manual) Lymphocytes % (Manual) Monocytes % (Manual) Eosinophils % (Manual) Basophils % (Manual) Nucleated RBC % Seg Neutrophils # Seg Neutrophils # Man Lymphocytes # (Manual) Monocytes # (Manual) Eosinophils # (Manual) Basophils # (Manual) PT INR Fibrinogen dRVVT Confirm Interp Factor V Activity POC ABG pH POC ABG pCO2 POC ABG pO2 ABG pO2 ABG HCO3 ABG Base Excess ABG Hemoglobin Oxyhemoglobin Sodium 134 L Potassium Chloride 95.8 L Carbon Dioxide BUN 66 H Creatinine 1.3 H Glucose 138 H POC Glucose 147 H 124 H Lactic Acid Calcium Phosphorus Magnesium Direct Bilirubin AST ALT Alkaline Phosphatase 254 H Lactate Dehydrogenase Troponin T C-Reactive Protein Total Protein Albumin 1.3 L Prealbumin Triglycerides Cholesterol LDL Cholesterol Direct HDL Cholesterol PTH Intact Urine pH Urine WBC (Auto) Urine Creatinine Urine Total Protein Fluid Total Protein Vancomycin Trough Rheumatoid Factor Complement C4 Miscellaneous Test Crossmatch 01/17/17 01/17/17 01/18/17 17:30 23:41 05:15 WBC RBC Hgb Hct MCV MCH MCHC RDW Plt Count Lymph % (Auto) [place] % (Auto) Lymph # [place] # Baso # Seg Neutrophils % Seg Neuts % (Manual) Lymphocytes % (Manual) Monocytes % (Manual) Eosinophils % (Manual) Basophils % (Manual) Nucleated RBC % Seg Neutrophils # Seg Neutrophils # Man Lymphocytes # (Manual) Monocytes # (Manual) Eosinophils # (Manual) Basophils # (Manual) PT INR Fibrinogen dRVVT Confirm Interp Factor V Activity POC ABG pH POC ABG pCO2 POC ABG pO2 ABG pO2 ABG HCO3 ABG Base Excess ABG Hemoglobin Oxyhemoglobin Sodium Potassium Chloride Carbon Dioxide BUN 89 H Creatinine 1.7 H Glucose 118 H POC Glucose 137 H 119 H Lactic Acid Calcium Phosphorus Magnesium Direct Bilirubin AST ALT Alkaline Phosphatase Lactate Dehydrogenase Troponin T C-Reactive Protein Total Protein Albumin Prealbumin Triglycerides Cholesterol LDL Cholesterol Direct HDL Cholesterol PTH Intact Urine pH Urine WBC (Auto) Urine Creatinine Urine Total Protein Fluid Total Protein Vancomycin Trough Rheumatoid Factor Complement C4 Miscellaneous Test Crossmatch 01/18/17 01/18/17 01/18/17 05:19 12:16 18:11 WBC RBC Hgb Hct MCV MCH MCHC RDW Plt Count Lymph % (Auto) [place] % (Auto) Lymph # [place] # Baso # Seg Neutrophils % Seg Neuts % (Manual) Lymphocytes % (Manual) Monocytes % (Manual) Eosinophils % (Manual) Basophils % (Manual) Nucleated RBC % Seg Neutrophils # Seg Neutrophils # Man Lymphocytes # (Manual) Monocytes # (Manual) Eosinophils # (Manual) Basophils # (Manual) PT INR Fibrinogen dRVVT Confirm Interp Factor V Activity POC ABG pH POC ABG pCO2 POC ABG pO2 ABG pO2 ABG HCO3 ABG Base Excess ABG Hemoglobin Oxyhemoglobin Sodium Potassium Chloride Carbon Dioxide BUN Creatinine Glucose POC Glucose 134 H 188 H 113 H Lactic Acid Calcium Phosphorus Magnesium Direct Bilirubin AST ALT Alkaline Phosphatase Lactate Dehydrogenase Troponin T C-Reactive Protein Total Protein Albumin Prealbumin Triglycerides Cholesterol LDL Cholesterol Direct HDL Cholesterol PTH Intact Urine pH Urine WBC (Auto) Urine Creatinine Urine Total Protein Fluid Total Protein Vancomycin Trough Rheumatoid Factor Complement C4 Miscellaneous Test Crossmatch 01/19/17 01/19/17 01/19/17 00:00 05:30 05:36 WBC RBC Hgb Hct MCV MCH MCHC RDW Plt Count Lymph % (Auto) [place] % (Auto) Lymph # [place] # Baso # Seg Neutrophils % Seg Neuts % (Manual) Lymphocytes % (Manual) Monocytes % (Manual) Eosinophils % (Manual) Basophils % (Manual) Nucleated RBC % Seg Neutrophils # Seg Neutrophils # Man Lymphocytes # (Manual) Monocytes # (Manual) Eosinophils # (Manual) Basophils # (Manual) PT INR Fibrinogen dRVVT Confirm Interp Factor V Activity POC ABG pH POC ABG pCO2 POC ABG pO2 ABG pO2 ABG HCO3 ABG Base Excess ABG Hemoglobin Oxyhemoglobin Sodium Potassium Chloride Carbon Dioxide BUN 70 H Creatinine 1.5 H Glucose 121 H POC Glucose 137 H 155 H Lactic Acid Calcium Phosphorus 2.10 L D Magnesium Direct Bilirubin AST ALT Alkaline Phosphatase Lactate Dehydrogenase Troponin T C-Reactive Protein Total Protein Albumin Prealbumin Triglycerides Cholesterol LDL Cholesterol Direct HDL Cholesterol PTH Intact Urine pH Urine WBC (Auto) Urine Creatinine Urine Total Protein Fluid Total Protein Vancomycin Trough Rheumatoid Factor Complement C4 Miscellaneous Test Crossmatch 01/19/17 01/19/17 01/19/17 11:59 15:32 17:57 WBC RBC Hgb Hct MCV MCH MCHC RDW Plt Count Lymph % (Auto) [place] % (Auto) Lymph # [place] # Baso # Seg Neutrophils % Seg Neuts % (Manual) Lymphocytes % (Manual) Monocytes % (Manual) Eosinophils % (Manual) Basophils % (Manual) Nucleated RBC % Seg Neutrophils # Seg Neutrophils # Man Lymphocytes # (Manual) Monocytes # (Manual) Eosinophils # (Manual) Basophils # (Manual) PT INR Fibrinogen dRVVT Confirm Interp Factor V Activity POC ABG pH POC ABG pCO2 33.1 L POC ABG pO2 76 L ABG pO2 ABG HCO3 ABG Base Excess ABG Hemoglobin Oxyhemoglobin Sodium Potassium Chloride Carbon Dioxide BUN Creatinine Glucose POC Glucose 156 H 129 H Lactic Acid Calcium Phosphorus Magnesium Direct Bilirubin AST ALT Alkaline Phosphatase Lactate Dehydrogenase Troponin T C-Reactive Protein Total Protein Albumin Prealbumin Triglycerides Cholesterol LDL Cholesterol Direct HDL Cholesterol PTH Intact Urine pH Urine WBC (Auto) Urine Creatinine Urine Total Protein Fluid Total Protein Vancomycin Trough Rheumatoid Factor Complement C4 Miscellaneous Test Crossmatch 01/19/17 01/20/17 01/20/17 23:49 04:00 05:21 WBC RBC Hgb Hct MCV MCH MCHC RDW Plt Count Lymph % (Auto) [place] % (Auto) Lymph # [place] # Baso # Seg Neutrophils % Seg Neuts % (Manual) Lymphocytes % (Manual) Monocytes % (Manual) Eosinophils % (Manual) Basophils % (Manual) Nucleated RBC % Seg Neutrophils # Seg Neutrophils # Man Lymphocytes # (Manual) Monocytes # (Manual) Eosinophils # (Manual) Basophils # (Manual) PT INR Fibrinogen dRVVT Confirm Interp Factor V Activity POC ABG pH POC ABG pCO2 POC ABG pO2 ABG pO2 ABG HCO3 ABG Base Excess ABG Hemoglobin Oxyhemoglobin Sodium Potassium Chloride Carbon Dioxide BUN 96 H Creatinine 1.9 H Glucose 106 H POC Glucose 125 H 130 H Lactic Acid Calcium Phosphorus 2.40 L Magnesium Direct Bilirubin AST ALT Alkaline Phosphatase Lactate Dehydrogenase Troponin T C-Reactive Protein Total Protein Albumin Prealbumin Triglycerides Cholesterol LDL Cholesterol Direct HDL Cholesterol PTH Intact Urine pH Urine WBC (Auto) Urine Creatinine Urine Total Protein Fluid Total Protein Vancomycin Trough Rheumatoid Factor Complement C4 Miscellaneous Test Crossmatch 01/20/17 01/20/17 01/20/17 11:58 12:17 17:26 WBC RBC Hgb Hct MCV MCH MCHC RDW Plt Count Lymph % (Auto) [place] % (Auto) Lymph # [place] # Baso # Seg Neutrophils % Seg Neuts % (Manual) Lymphocytes % (Manual) Monocytes % (Manual) Eosinophils % (Manual) Basophils % (Manual) Nucleated RBC % Seg Neutrophils # Seg Neutrophils # Man Lymphocytes # (Manual) Monocytes # (Manual) Eosinophils # (Manual) Basophils # (Manual) PT INR Fibrinogen dRVVT Confirm Interp Factor V Activity POC ABG pH POC ABG pCO2 POC ABG pO2 70 L ABG pO2 ABG HCO3 ABG Base Excess ABG Hemoglobin Oxyhemoglobin Sodium Potassium Chloride Carbon Dioxide BUN Creatinine Glucose POC Glucose 118 H 154 H Lactic Acid Calcium Phosphorus Magnesium Direct Bilirubin AST ALT Alkaline Phosphatase Lactate Dehydrogenase Troponin T C-Reactive Protein Total Protein Albumin Prealbumin Triglycerides Cholesterol LDL Cholesterol Direct HDL Cholesterol PTH Intact Urine pH Urine WBC (Auto) Urine Creatinine Urine Total Protein Fluid Total Protein Vancomycin Trough Rheumatoid Factor Complement C4 Miscellaneous Test Crossmatch 01/21/17 01/21/17 01/21/17 04:00 04:56 11:46 WBC RBC Hgb Hct MCV MCH MCHC RDW Plt Count Lymph % (Auto) [place] % (Auto) Lymph # [place] # Baso # Seg Neutrophils % Seg Neuts % (Manual) Lymphocytes % (Manual) Monocytes % (Manual) Eosinophils % (Manual) Basophils % (Manual) Nucleated RBC % Seg Neutrophils # Seg Neutrophils # Man Lymphocytes # (Manual) Monocytes # (Manual) Eosinophils # (Manual) Basophils # (Manual) PT INR Fibrinogen dRVVT Confirm Interp Factor V Activity POC ABG pH POC ABG pCO2 POC ABG pO2 ABG pO2 ABG HCO3 ABG Base Excess ABG Hemoglobin Oxyhemoglobin Sodium Potassium 3.5 L Chloride 97.4 L Carbon Dioxide BUN 66 H Creatinine 1.4 H Glucose POC Glucose 116 H 106 H Lactic Acid Calcium Phosphorus 2.10 L Magnesium Direct Bilirubin AST ALT Alkaline Phosphatase Lactate Dehydrogenase Troponin T C-Reactive Protein Total Protein Albumin Prealbumin Triglycerides Cholesterol LDL Cholesterol Direct HDL Cholesterol PTH Intact Urine pH Urine WBC (Auto) Urine Creatinine Urine Total Protein Fluid Total Protein Vancomycin Trough Rheumatoid Factor Complement C4 Miscellaneous Test Crossmatch 01/21/17 01/21/17 01/22/17 17:25 23:49 05:35 WBC RBC Hgb Hct MCV MCH MCHC RDW Plt Count Lymph % (Auto) [place] % (Auto) Lymph # [place] # Baso # Seg Neutrophils % Seg Neuts % (Manual) Lymphocytes % (Manual) Monocytes % (Manual) Eosinophils % (Manual) Basophils % (Manual) Nucleated RBC % Seg Neutrophils # Seg Neutrophils # Man Lymphocytes # (Manual) Monocytes # (Manual) Eosinophils # (Manual) Basophils # (Manual) PT INR Fibrinogen dRVVT Confirm Interp Factor V Activity POC ABG pH POC ABG pCO2 POC ABG pO2 ABG pO2 ABG HCO3 ABG Base Excess ABG Hemoglobin Oxyhemoglobin Sodium Potassium Chloride Carbon Dioxide BUN Creatinine Glucose POC Glucose 106 H 133 H 107 H Lactic Acid Calcium Phosphorus Magnesium Direct Bilirubin AST ALT Alkaline Phosphatase Lactate Dehydrogenase Troponin T C-Reactive Protein Total Protein Albumin Prealbumin Triglycerides Cholesterol LDL Cholesterol Direct HDL Cholesterol PTH Intact Urine pH Urine WBC (Auto) Urine Creatinine Urine Total Protein Fluid Total Protein Vancomycin Trough Rheumatoid Factor Complement C4 Miscellaneous Test Crossmatch 01/22/17 01/22/17 01/22/17 07:20 07:20 11:31 WBC RBC 2.75 L Hgb 7.5 L Hct 22.7 L MCV MCH 27 L MCHC RDW 17.5 H Plt Count Lymph % (Auto) [place] % (Auto) Lymph # [place] # Baso # Seg Neutrophils % Seg Neuts % (Manual) Lymphocytes % (Manual) Monocytes % (Manual) Eosinophils % (Manual) Basophils % (Manual) Nucleated RBC % Seg Neutrophils # Seg Neutrophils # Man Lymphocytes # (Manual) Monocytes # (Manual) Eosinophils # (Manual) Basophils # (Manual) PT INR Fibrinogen dRVVT Confirm Interp Factor V Activity POC ABG pH POC ABG pCO2 POC ABG pO2 ABG pO2 ABG HCO3 ABG Base Excess ABG Hemoglobin Oxyhemoglobin Sodium Potassium 3.3 L Chloride Carbon Dioxide BUN 42 H Creatinine Glucose 105 H POC Glucose 124 H Lactic Acid Calcium Phosphorus 1.70 L Magnesium Direct Bilirubin AST ALT Alkaline Phosphatase Lactate Dehydrogenase Troponin T C-Reactive Protein Total Protein Albumin Prealbumin Triglycerides Cholesterol LDL Cholesterol Direct HDL Cholesterol PTH Intact Urine pH Urine WBC (Auto) Urine Creatinine Urine Total Protein Fluid Total Protein Vancomycin Trough Rheumatoid Factor Complement C4 Miscellaneous Test Crossmatch 01/22/17 01/22/17 01/23/17 17:16 23:35 05:35 WBC RBC Hgb Hct MCV MCH MCHC RDW Plt Count Lymph % (Auto) [place] % (Auto) Lymph # [place] # Baso # Seg Neutrophils % Seg Neuts % (Manual) Lymphocytes % (Manual) Monocytes % (Manual) Eosinophils % (Manual) Basophils % (Manual) Nucleated RBC % Seg Neutrophils # Seg Neutrophils # Man Lymphocytes # (Manual) Monocytes # (Manual) Eosinophils # (Manual) Basophils # (Manual) PT INR Fibrinogen dRVVT Confirm Interp Factor V Activity POC ABG pH POC ABG pCO2 POC ABG pO2 ABG pO2 ABG HCO3 ABG Base Excess ABG Hemoglobin Oxyhemoglobin Sodium Potassium Chloride Carbon Dioxide BUN Creatinine Glucose POC Glucose 135 H 120 H 111 H Lactic Acid Calcium Phosphorus Magnesium Direct Bilirubin AST ALT Alkaline Phosphatase Lactate Dehydrogenase Troponin T C-Reactive Protein Total Protein Albumin Prealbumin Triglycerides Cholesterol LDL Cholesterol Direct HDL Cholesterol PTH Intact Urine pH Urine WBC (Auto) Urine Creatinine Urine Total Protein Fluid Total Protein Vancomycin Trough Rheumatoid Factor Complement C4 Miscellaneous Test Crossmatch 01/23/17 01/23/17 01/23/17 06:10 17:27 23:44 WBC RBC Hgb Hct MCV MCH MCHC RDW Plt Count Lymph % (Auto) [place] % (Auto) Lymph # [place] # Baso # Seg Neutrophils % Seg Neuts % (Manual) Lymphocytes % (Manual) Monocytes % (Manual) Eosinophils % (Manual) Basophils % (Manual) Nucleated RBC % Seg Neutrophils # Seg Neutrophils # Man Lymphocytes # (Manual) Monocytes # (Manual) Eosinophils # (Manual) Basophils # (Manual) PT INR Fibrinogen dRVVT Confirm Interp Factor V Activity POC ABG pH POC ABG pCO2 POC ABG pO2 ABG pO2 ABG HCO3 ABG Base Excess ABG Hemoglobin Oxyhemoglobin Sodium Potassium 3.3 L Chloride Carbon Dioxide BUN 66 H Creatinine 1.3 H Glucose 109 H POC Glucose 120 H 115 H Lactic Acid Calcium Phosphorus 2.20 L D Magnesium Direct Bilirubin AST ALT Alkaline Phosphatase Lactate Dehydrogenase Troponin T C-Reactive Protein Total Protein Albumin Prealbumin Triglycerides Cholesterol LDL Cholesterol Direct HDL Cholesterol PTH Intact Urine pH Urine WBC (Auto) Urine Creatinine Urine Total Protein Fluid Total Protein Vancomycin Trough Rheumatoid Factor Complement C4 Miscellaneous Test Crossmatch 01/24/17 01/24/17 01/24/17 05:19 05:50 12:19 WBC RBC Hgb Hct MCV MCH MCHC RDW Plt Count Lymph % (Auto) [place] % (Auto) Lymph # [place] # Baso # Seg Neutrophils % Seg Neuts % (Manual) Lymphocytes % (Manual) Monocytes % (Manual) Eosinophils % (Manual) Basophils % (Manual) Nucleated RBC % Seg Neutrophils # Seg Neutrophils # Man Lymphocytes # (Manual) Monocytes # (Manual) Eosinophils # (Manual) Basophils # (Manual) PT INR Fibrinogen dRVVT Confirm Interp Factor V Activity POC ABG pH POC ABG pCO2 POC ABG pO2 ABG pO2 ABG HCO3 ABG Base Excess ABG Hemoglobin Oxyhemoglobin Sodium Potassium Chloride Carbon Dioxide BUN 47 H Creatinine Glucose 117 H POC Glucose 126 H 119 H Lactic Acid Calcium Phosphorus 2.30 L Magnesium 1.60 L Direct Bilirubin AST ALT Alkaline Phosphatase Lactate Dehydrogenase Troponin T C-Reactive Protein Total Protein Albumin Prealbumin Triglycerides Cholesterol LDL Cholesterol Direct HDL Cholesterol PTH Intact Urine pH Urine WBC (Auto) Urine Creatinine Urine Total Protein Fluid Total Protein Vancomycin Trough Rheumatoid Factor Complement C4 Miscellaneous Test Crossmatch 01/24/17 01/25/17 01/25/17 17:08 00:37 04:00 WBC RBC Hgb Hct MCV MCH MCHC RDW Plt Count Lymph % (Auto) [place] % (Auto) Lymph # [place] # Baso # Seg Neutrophils % Seg Neuts % (Manual) Lymphocytes % (Manual) Monocytes % (Manual) Eosinophils % (Manual) Basophils % (Manual) Nucleated RBC % Seg Neutrophils # Seg Neutrophils # Man Lymphocytes # (Manual) Monocytes # (Manual) Eosinophils # (Manual) Basophils # (Manual) PT INR Fibrinogen dRVVT Confirm Interp Factor V Activity POC ABG pH POC ABG pCO2 POC ABG pO2 ABG pO2 ABG HCO3 ABG Base Excess ABG Hemoglobin Oxyhemoglobin Sodium Potassium Chloride Carbon Dioxide BUN 72 H Creatinine 1.3 H Glucose POC Glucose 127 H 110 H Lactic Acid Calcium Phosphorus Magnesium Direct Bilirubin AST ALT Alkaline Phosphatase Lactate Dehydrogenase Troponin T C-Reactive Protein Total Protein Albumin Prealbumin Triglycerides Cholesterol LDL Cholesterol Direct HDL Cholesterol PTH Intact Urine pH Urine WBC (Auto) Urine Creatinine Urine Total Protein Fluid Total Protein Vancomycin Trough Rheumatoid Factor Complement C4 Miscellaneous Test Crossmatch 01/25/17 01/25/17 01/25/17 04:00 11:15 13:05 WBC RBC 2.49 L Hgb 6.7 L Hct 20.9 L MCV MCH 27 L MCHC RDW 18.8 H Plt Count Lymph % (Auto) [place] % (Auto) 10.1 H Lymph # [place] # 1.0 H Baso # Seg Neutrophils % Seg Neuts % (Manual) Lymphocytes % (Manual) Monocytes % (Manual) Eosinophils % (Manual) Basophils % (Manual) Nucleated RBC % Seg Neutrophils # Seg Neutrophils # Man Lymphocytes # (Manual) Monocytes # (Manual) Eosinophils # (Manual) Basophils # (Manual) PT INR Fibrinogen dRVVT Confirm Interp Factor V Activity POC ABG pH POC ABG pCO2 POC ABG pO2 ABG pO2 ABG HCO3 ABG Base Excess ABG Hemoglobin Oxyhemoglobin Sodium Potassium Chloride Carbon Dioxide BUN Creatinine Glucose POC Glucose 128 H Lactic Acid Calcium Phosphorus Magnesium Direct Bilirubin AST ALT Alkaline Phosphatase Lactate Dehydrogenase Troponin T C-Reactive Protein Total Protein Albumin Prealbumin Triglycerides Cholesterol LDL Cholesterol Direct HDL Cholesterol PTH Intact Urine pH Urine WBC (Auto) Urine Creatinine Urine Total Protein Fluid Total Protein Vancomycin Trough Rheumatoid Factor Complement C4 Miscellaneous Test Crossmatch See Detail 01/25/17 01/25/17 01/26/17 18:02 23:07 01:20 WBC RBC Hgb Hct MCV MCH MCHC RDW Plt Count Lymph % (Auto) [place] % (Auto) Lymph # [place] # Baso # Seg Neutrophils % Seg Neuts % (Manual) Lymphocytes % (Manual) Monocytes % (Manual) Eosinophils % (Manual) Basophils % (Manual) Nucleated RBC % Seg Neutrophils # Seg Neutrophils # Man Lymphocytes # (Manual) Monocytes # (Manual) Eosinophils # (Manual) Basophils # (Manual) PT INR Fibrinogen dRVVT Confirm Interp Factor V Activity POC ABG pH POC ABG pCO2 POC ABG pO2 ABG pO2 ABG HCO3 ABG Base Excess ABG Hemoglobin Oxyhemoglobin Sodium Potassium Chloride Carbon Dioxide BUN Creatinine Glucose POC Glucose 120 H 123 H 112 H Lactic Acid Calcium Phosphorus Magnesium Direct Bilirubin AST ALT Alkaline Phosphatase Lactate Dehydrogenase Troponin T C-Reactive Protein Total Protein Albumin Prealbumin Triglycerides Cholesterol LDL Cholesterol Direct HDL Cholesterol PTH Intact Urine pH Urine WBC (Auto) Urine Creatinine Urine Total Protein Fluid Total Protein Vancomycin Trough Rheumatoid Factor Complement C4 Miscellaneous Test Crossmatch 01/26/17 01/26/17 01/26/17 04:20 04:20 11:23 WBC 13.1 H RBC 3.28 L Hgb 9.0 L Hct 26.9 L D MCV MCH 27 L MCHC RDW 17.2 H Plt Count Lymph % (Auto) [place] % (Auto) 9.0 H Lymph # [place] # 1.2 H Baso # Seg Neutrophils % 73.1 H Seg Neuts % (Manual) Lymphocytes % (Manual) Monocytes % (Manual) Eosinophils % (Manual) Basophils % (Manual) Nucleated RBC % Seg Neutrophils # 9.6 H Seg Neutrophils # Man Lymphocytes # (Manual) Monocytes # (Manual) Eosinophils # (Manual) Basophils # (Manual) PT INR Fibrinogen dRVVT Confirm Interp Factor V Activity POC ABG pH POC ABG pCO2 POC ABG pO2 ABG pO2 ABG HCO3 ABG Base Excess ABG Hemoglobin Oxyhemoglobin Sodium Potassium Chloride Carbon Dioxide BUN 51 H Creatinine Glucose 117 H POC Glucose 125 H Lactic Acid Calcium Phosphorus Magnesium Direct Bilirubin AST ALT Alkaline Phosphatase Lactate Dehydrogenase Troponin T C-Reactive Protein Total Protein Albumin Prealbumin Triglycerides Cholesterol LDL Cholesterol Direct HDL Cholesterol PTH Intact Urine pH Urine WBC (Auto) Urine Creatinine Urine Total Protein Fluid Total Protein Vancomycin Trough Rheumatoid Factor Complement C4 Miscellaneous Test Crossmatch 01/26/17 01/27/17 01/27/17 17:11 00:30 04:00 WBC RBC Hgb Hct MCV MCH MCHC RDW Plt Count Lymph % (Auto) [place] % (Auto) Lymph # [place] # Baso # Seg Neutrophils % Seg Neuts % (Manual) Lymphocytes % (Manual) Monocytes % (Manual) Eosinophils % (Manual) Basophils % (Manual) Nucleated RBC % Seg Neutrophils # Seg Neutrophils # Man Lymphocytes # (Manual) Monocytes # (Manual) Eosinophils # (Manual) Basophils # (Manual) PT INR Fibrinogen dRVVT Confirm Interp Factor V Activity POC ABG pH POC ABG pCO2 POC ABG pO2 ABG pO2 ABG HCO3 ABG Base Excess ABG Hemoglobin Oxyhemoglobin Sodium Potassium Chloride 97.7 L Carbon Dioxide 21 L BUN 79 H Creatinine 1.7 H D Glucose 112 H POC Glucose 133 H 135 H Lactic Acid Calcium Phosphorus 5.00 H D Magnesium Direct Bilirubin AST ALT Alkaline Phosphatase Lactate Dehydrogenase Troponin T C-Reactive Protein Total Protein Albumin Prealbumin Triglycerides Cholesterol LDL Cholesterol Direct HDL Cholesterol PTH Intact Urine pH Urine WBC (Auto) Urine Creatinine Urine Total Protein Fluid Total Protein Vancomycin Trough Rheumatoid Factor Complement C4 Miscellaneous Test Crossmatch 01/27/17 01/27/17 01/27/17 05:12 12:18 17:25 WBC RBC Hgb Hct MCV MCH MCHC RDW Plt Count Lymph % (Auto) [place] % (Auto) Lymph # [place] # Baso # Seg Neutrophils % Seg Neuts % (Manual) Lymphocytes % (Manual) Monocytes % (Manual) Eosinophils % (Manual) Basophils % (Manual) Nucleated RBC % Seg Neutrophils # Seg Neutrophils # Man Lymphocytes # (Manual) Monocytes # (Manual) Eosinophils # (Manual) Basophils # (Manual) PT INR Fibrinogen dRVVT Confirm Interp Factor V Activity POC ABG pH POC ABG pCO2 POC ABG pO2 ABG pO2 ABG HCO3 ABG Base Excess ABG Hemoglobin Oxyhemoglobin Sodium Potassium Chloride Carbon Dioxide BUN Creatinine Glucose POC Glucose 116 H 153 H 152 H Lactic Acid Calcium Phosphorus Magnesium Direct Bilirubin AST ALT Alkaline Phosphatase Lactate Dehydrogenase Troponin T C-Reactive Protein Total Protein Albumin Prealbumin Triglycerides Cholesterol LDL Cholesterol Direct HDL Cholesterol PTH Intact Urine pH Urine WBC (Auto) Urine Creatinine Urine Total Protein Fluid Total Protein Vancomycin Trough Rheumatoid Factor Complement C4 Miscellaneous Test Crossmatch 01/27/17 01/28/17 01/28/17 23:42 04:00 04:00 WBC 14.4 H RBC 2.82 L Hgb 7.4 L Hct 23.5 L MCV MCH 26 L MCHC RDW 17.6 H Plt Count Lymph % (Auto) 10.2 L [place] % (Auto) 11.0 H Lymph # [place] # 1.6 H Baso # Seg Neutrophils % 78.0 H Seg Neuts % (Manual) Lymphocytes % (Manual) Monocytes % (Manual) Eosinophils % (Manual) Basophils % (Manual) Nucleated RBC % Seg Neutrophils # 11.3 H Seg Neutrophils # Man Lymphocytes # (Manual) Monocytes # (Manual) Eosinophils # (Manual) Basophils # (Manual) PT INR Fibrinogen dRVVT Confirm Interp Factor V Activity POC ABG pH POC ABG pCO2 POC ABG pO2 ABG pO2 ABG HCO3 ABG Base Excess ABG Hemoglobin Oxyhemoglobin Sodium Potassium Chloride Carbon Dioxide BUN 55 H Creatinine 1.3 H Glucose 114 H POC Glucose 121 H Lactic Acid Calcium Phosphorus Magnesium Direct Bilirubin AST ALT Alkaline Phosphatase Lactate Dehydrogenase Troponin T C-Reactive Protein Total Protein Albumin 1.4 L Prealbumin Triglycerides Cholesterol LDL Cholesterol Direct HDL Cholesterol PTH Intact Urine pH Urine WBC (Auto) Urine Creatinine Urine Total Protein Fluid Total Protein Vancomycin Trough Rheumatoid Factor Complement C4 Miscellaneous Test Crossmatch 01/28/17 01/28/17 01/29/17 04:59 12:30 00:02 WBC RBC Hgb Hct MCV MCH MCHC RDW Plt Count Lymph % (Auto) [place] % (Auto) Lymph # [place] # Baso # Seg Neutrophils % Seg Neuts % (Manual) Lymphocytes % (Manual) Monocytes % (Manual) Eosinophils % (Manual) Basophils % (Manual) Nucleated RBC % Seg Neutrophils # Seg Neutrophils # Man Lymphocytes # (Manual) Monocytes # (Manual) Eosinophils # (Manual) Basophils # (Manual) PT INR Fibrinogen dRVVT Confirm Interp Factor V Activity POC ABG pH POC ABG pCO2 POC ABG pO2 ABG pO2 ABG HCO3 ABG Base Excess ABG Hemoglobin Oxyhemoglobin Sodium Potassium Chloride Carbon Dioxide BUN Creatinine Glucose POC Glucose 126 H 119 H 138 H Lactic Acid Calcium Phosphorus Magnesium Direct Bilirubin AST ALT Alkaline Phosphatase Lactate Dehydrogenase Troponin T C-Reactive Protein Total Protein Albumin Prealbumin Triglycerides Cholesterol LDL Cholesterol Direct HDL Cholesterol PTH Intact Urine pH Urine WBC (Auto) Urine Creatinine Urine Total Protein Fluid Total Protein Vancomycin Trough Rheumatoid Factor Complement C4 Miscellaneous Test Crossmatch 01/29/17 01/29/17 01/29/17 04:58 06:15 11:35 WBC RBC Hgb Hct MCV MCH MCHC RDW Plt Count Lymph % (Auto) [place] % (Auto) Lymph # [place] # Baso # Seg Neutrophils % Seg Neuts % (Manual) Lymphocytes % (Manual) Monocytes % (Manual) Eosinophils % (Manual) Basophils % (Manual) Nucleated RBC % Seg Neutrophils # Seg Neutrophils # Man Lymphocytes # (Manual) Monocytes # (Manual) Eosinophils # (Manual) Basophils # (Manual) PT INR Fibrinogen dRVVT Confirm Interp Factor V Activity POC ABG pH POC ABG pCO2 POC ABG pO2 ABG pO2 ABG HCO3 ABG Base Excess ABG Hemoglobin Oxyhemoglobin Sodium Potassium Chloride Carbon Dioxide BUN 85 H Creatinine 1.7 H Glucose 105 H POC Glucose 114 H 110 H Lactic Acid Calcium Phosphorus Magnesium 2.40 H Direct Bilirubin AST ALT Alkaline Phosphatase Lactate Dehydrogenase Troponin T C-Reactive Protein Total Protein Albumin Prealbumin Triglycerides Cholesterol LDL Cholesterol Direct HDL Cholesterol PTH Intact Urine pH Urine WBC (Auto) Urine Creatinine Urine Total Protein Fluid Total Protein Vancomycin Trough Rheumatoid Factor Complement C4 Miscellaneous Test Crossmatch 01/29/17 01/29/17 01/30/17 18:24 23:41 05:12 WBC RBC Hgb Hct MCV MCH MCHC RDW Plt Count Lymph % (Auto) [place] % (Auto) Lymph # [place] # Baso # Seg Neutrophils % Seg Neuts % (Manual) Lymphocytes % (Manual) Monocytes % (Manual) Eosinophils % (Manual) Basophils % (Manual) Nucleated RBC % Seg Neutrophils # Seg Neutrophils # Man Lymphocytes # (Manual) Monocytes # (Manual) Eosinophils # (Manual) Basophils # (Manual) PT INR Fibrinogen dRVVT Confirm Interp Factor V Activity POC ABG pH POC ABG pCO2 POC ABG pO2 ABG pO2 ABG HCO3 ABG Base Excess ABG Hemoglobin Oxyhemoglobin Sodium Potassium Chloride Carbon Dioxide BUN Creatinine Glucose POC Glucose 109 H 134 H 109 H Lactic Acid Calcium Phosphorus Magnesium Direct Bilirubin AST ALT Alkaline Phosphatase Lactate Dehydrogenase Troponin T C-Reactive Protein Total Protein Albumin Prealbumin Triglycerides Cholesterol LDL Cholesterol Direct HDL Cholesterol PTH Intact Urine pH Urine WBC (Auto) Urine Creatinine Urine Total Protein Fluid Total Protein Vancomycin Trough Rheumatoid Factor Complement C4 Miscellaneous Test Crossmatch 01/30/17 01/30/17 01/30/17 11:26 17:43 23:39 WBC RBC Hgb Hct MCV MCH MCHC RDW Plt Count Lymph % (Auto) [place] % (Auto) Lymph # [place] # Baso # Seg Neutrophils % Seg Neuts % (Manual) Lymphocytes % (Manual) Monocytes % (Manual) Eosinophils % (Manual) Basophils % (Manual) Nucleated RBC % Seg Neutrophils # Seg Neutrophils # Man Lymphocytes # (Manual) Monocytes # (Manual) Eosinophils # (Manual) Basophils # (Manual) PT INR Fibrinogen dRVVT Confirm Interp Factor V Activity POC ABG pH POC ABG pCO2 POC ABG pO2 ABG pO2 ABG HCO3 ABG Base Excess ABG Hemoglobin Oxyhemoglobin Sodium Potassium Chloride Carbon Dioxide BUN Creatinine Glucose POC Glucose 135 H 143 H 122 H Lactic Acid Calcium Phosphorus Magnesium Direct Bilirubin AST ALT Alkaline Phosphatase Lactate Dehydrogenase Troponin T C-Reactive Protein Total Protein Albumin Prealbumin Triglycerides Cholesterol LDL Cholesterol Direct HDL Cholesterol PTH Intact Urine pH Urine WBC (Auto) Urine Creatinine Urine Total Protein Fluid Total Protein Vancomycin Trough Rheumatoid Factor Complement C4 Miscellaneous Test Crossmatch 01/31/17 01/31/17 01/31/17 04:00 05:40 11:12 WBC RBC Hgb Hct MCV MCH MCHC RDW Plt Count Lymph % (Auto) [place] % (Auto) Lymph # [place] # Baso # Seg Neutrophils % Seg Neuts % (Manual) Lymphocytes % (Manual) Monocytes % (Manual) Eosinophils % (Manual) Basophils % (Manual) Nucleated RBC % Seg Neutrophils # Seg Neutrophils # Man Lymphocytes # (Manual) Monocytes # (Manual) Eosinophils # (Manual) Basophils # (Manual) PT INR Fibrinogen dRVVT Confirm Interp Factor V Activity POC ABG pH POC ABG pCO2 POC ABG pO2 ABG pO2 ABG HCO3 ABG Base Excess ABG Hemoglobin Oxyhemoglobin Sodium Potassium Chloride Carbon Dioxide BUN 78 H Creatinine 1.5 H Glucose 108 H POC Glucose 123 H Lactic Acid Calcium Phosphorus Magnesium Direct Bilirubin AST ALT Alkaline Phosphatase Lactate Dehydrogenase Troponin T C-Reactive Protein 8.10 H Total Protein Albumin Prealbumin Triglycerides Cholesterol LDL Cholesterol Direct HDL Cholesterol PTH Intact Urine pH Urine WBC (Auto) Urine Creatinine Urine Total Protein Fluid Total Protein Vancomycin Trough Rheumatoid Factor Complement C4 Miscellaneous Test Crossmatch 01/31/17 01/31/17 01/31/17 11:16 17:45 17:50 WBC RBC Hgb Hct MCV MCH MCHC RDW Plt Count Lymph % (Auto) [place] % (Auto) Lymph # [place] # Baso # Seg Neutrophils % Seg Neuts % (Manual) Lymphocytes % (Manual) Monocytes % (Manual) Eosinophils % (Manual) Basophils % (Manual) Nucleated RBC % Seg Neutrophils # Seg Neutrophils # Man Lymphocytes # (Manual) Monocytes # (Manual) Eosinophils # (Manual) Basophils # (Manual) PT INR Fibrinogen dRVVT Confirm Interp Factor V Activity POC ABG pH POC ABG pCO2 POC ABG pO2 ABG pO2 ABG HCO3 ABG Base Excess ABG Hemoglobin Oxyhemoglobin Sodium Potassium Chloride Carbon Dioxide BUN Creatinine Glucose POC Glucose 119 H 111 H Lactic Acid Calcium Phosphorus Magnesium Direct Bilirubin AST ALT Alkaline Phosphatase Lactate Dehydrogenase Troponin T C-Reactive Protein Total Protein Albumin Prealbumin Triglycerides Cholesterol LDL Cholesterol Direct HDL Cholesterol PTH Intact 6.76 L Urine pH Urine WBC (Auto) Urine Creatinine Urine Total Protein Fluid Total Protein Vancomycin Trough Rheumatoid Factor Complement C4 Miscellaneous Test Crossmatch 01/31/17 02/01/17 02/01/17 23:19 05:42 09:24 WBC RBC Hgb Hct MCV MCH MCHC RDW Plt Count Lymph % (Auto) [place] % (Auto) Lymph # [place] # Baso # Seg Neutrophils % Seg Neuts % (Manual) Lymphocytes % (Manual) Monocytes % (Manual) Eosinophils % (Manual) Basophils % (Manual) Nucleated RBC % Seg Neutrophils # Seg Neutrophils # Man Lymphocytes # (Manual) Monocytes # (Manual) Eosinophils # (Manual) Basophils # (Manual) PT INR Fibrinogen dRVVT Confirm Interp Factor V Activity POC ABG pH POC ABG pCO2 POC ABG pO2 ABG pO2 ABG HCO3 ABG Base Excess ABG Hemoglobin Oxyhemoglobin Sodium Potassium Chloride Carbon Dioxide BUN Creatinine Glucose POC Glucose 118 H 122 H Lactic Acid Calcium Phosphorus Magnesium 2.60 H Direct Bilirubin AST ALT Alkaline Phosphatase Lactate Dehydrogenase Troponin T C-Reactive Protein Total Protein Albumin Prealbumin Triglycerides Cholesterol LDL Cholesterol Direct HDL Cholesterol PTH Intact Urine pH Urine WBC (Auto) Urine Creatinine Urine Total Protein Fluid Total Protein Vancomycin Trough Rheumatoid Factor Complement C4 Miscellaneous Test Crossmatch 02/01/17 02/01/17 02/02/17 09:24 12:15 07:40 WBC RBC Hgb Hct MCV MCH MCHC RDW Plt Count Lymph % (Auto) [place] % (Auto) Lymph # [place] # Baso # Seg Neutrophils % Seg Neuts % (Manual) Lymphocytes % (Manual) Monocytes % (Manual) Eosinophils % (Manual) Basophils % (Manual) Nucleated RBC % Seg Neutrophils # Seg Neutrophils # Man Lymphocytes # (Manual) Monocytes # (Manual) Eosinophils # (Manual) Basophils # (Manual) PT INR Fibrinogen dRVVT Confirm Interp Factor V Activity POC ABG pH POC ABG pCO2 POC ABG pO2 ABG pO2 ABG HCO3 ABG Base Excess ABG Hemoglobin Oxyhemoglobin Sodium Potassium Chloride Carbon Dioxide BUN 102 H 72 H Creatinine 1.9 H 1.5 H Glucose 120 H POC Glucose 156 H Lactic Acid Calcium Phosphorus Magnesium Direct Bilirubin AST ALT Alkaline Phosphatase Lactate Dehydrogenase Troponin T C-Reactive Protein Total Protein Albumin Prealbumin Triglycerides Cholesterol LDL Cholesterol Direct HDL Cholesterol PTH Intact Urine pH Urine WBC (Auto) Urine Creatinine Urine Total Protein Fluid Total Protein Vancomycin Trough Rheumatoid Factor Complement C4 Miscellaneous Test Crossmatch 02/02/17 02/02/17 02/03/17 10:16 12:11 00:08 WBC 12.0 H RBC 3.08 L Hgb 8.3 L Hct 25.6 L MCV MCH 27 L MCHC RDW 18.2 H Plt Count Lymph % (Auto) [place] % (Auto) Lymph # [place] # Baso # Seg Neutrophils % 78.4 H Seg Neuts % (Manual) Lymphocytes % (Manual) Monocytes % (Manual) Eosinophils % (Manual) Basophils % (Manual) Nucleated RBC % Seg Neutrophils # 9.4 H Seg Neutrophils # Man Lymphocytes # (Manual) Monocytes # (Manual) Eosinophils # (Manual) Basophils # (Manual) PT INR Fibrinogen dRVVT Confirm Interp Factor V Activity POC ABG pH POC ABG pCO2 POC ABG pO2 ABG pO2 ABG HCO3 ABG Base Excess ABG Hemoglobin Oxyhemoglobin Sodium Potassium Chloride Carbon Dioxide BUN Creatinine Glucose POC Glucose 110 H 120 H Lactic Acid Calcium Phosphorus Magnesium Direct Bilirubin AST ALT Alkaline Phosphatase Lactate Dehydrogenase Troponin T C-Reactive Protein Total Protein Albumin Prealbumin Triglycerides Cholesterol LDL Cholesterol Direct HDL Cholesterol PTH Intact Urine pH Urine WBC (Auto) Urine Creatinine Urine Total Protein Fluid Total Protein Vancomycin Trough Rheumatoid Factor Complement C4 Miscellaneous Test Crossmatch 02/03/17 02/03/17 02/03/17 05:41 07:38 11:31 WBC RBC Hgb Hct MCV MCH MCHC RDW Plt Count Lymph % (Auto) [place] % (Auto) Lymph # [place] # Baso # Seg Neutrophils % Seg Neuts % (Manual) Lymphocytes % (Manual) Monocytes % (Manual) Eosinophils % (Manual) Basophils % (Manual) Nucleated RBC % Seg Neutrophils # Seg Neutrophils # Man Lymphocytes # (Manual) Monocytes # (Manual) Eosinophils # (Manual) Basophils # (Manual) PT INR Fibrinogen dRVVT Confirm Interp Factor V Activity POC ABG pH POC ABG pCO2 POC ABG pO2 ABG pO2 ABG HCO3 ABG Base Excess ABG Hemoglobin Oxyhemoglobin Sodium 134 L Potassium Chloride Carbon Dioxide 21 L BUN 91 H Creatinine 1.9 H Glucose 110 H POC Glucose 119 H 119 H Lactic Acid Calcium 10.3 H Phosphorus Magnesium Direct Bilirubin AST ALT Alkaline Phosphatase Lactate Dehydrogenase Troponin T C-Reactive Protein Total Protein Albumin Prealbumin Triglycerides Cholesterol LDL Cholesterol Direct HDL Cholesterol PTH Intact Urine pH Urine WBC (Auto) Urine Creatinine Urine Total Protein Fluid Total Protein Vancomycin Trough Rheumatoid Factor Complement C4 Miscellaneous Test Crossmatch 02/03/17 02/04/17 02/04/17 17:13 04:00 05:18 WBC RBC Hgb Hct MCV MCH MCHC RDW Plt Count Lymph % (Auto) [place] % (Auto) Lymph # [place] # Baso # Seg Neutrophils % Seg Neuts % (Manual) Lymphocytes % (Manual) Monocytes % (Manual) Eosinophils % (Manual) Basophils % (Manual) Nucleated RBC % Seg Neutrophils # Seg Neutrophils # Man Lymphocytes # (Manual) Monocytes # (Manual) Eosinophils # (Manual) Basophils # (Manual) PT INR Fibrinogen dRVVT Confirm Interp Factor V Activity POC ABG pH POC ABG pCO2 POC ABG pO2 ABG pO2 ABG HCO3 ABG Base Excess ABG Hemoglobin Oxyhemoglobin Sodium 136 L Potassium Chloride Carbon Dioxide BUN 58 H Creatinine 1.3 H Glucose 103 H POC Glucose 133 H 132 H Lactic Acid Calcium Phosphorus 2.00 L D Magnesium 1.60 L Direct Bilirubin AST ALT Alkaline Phosphatase Lactate Dehydrogenase Troponin T C-Reactive Protein Total Protein Albumin Prealbumin Triglycerides Cholesterol LDL Cholesterol Direct HDL Cholesterol PTH Intact Urine pH Urine WBC (Auto) Urine Creatinine Urine Total Protein Fluid Total Protein Vancomycin Trough Rheumatoid Factor Complement C4 Miscellaneous Test Crossmatch Allied health notes reviewed: RT (not tolerating weaning. Has been on PS 18/5, desaturations if PS is weaned)
[2017-02-04] MEDS: LOPRESSOR IV PRN ×2 (14:30→19:01)
--- NOTE | 2017-02-04 18:28 | Progress Note ---
Assessment and Plan Assessment and plan: -- Paroxysmal atrial fibrillation with RVR, failed cardioversion Intermittent rapid ventricular rate, continue beta blockers, not a candidate for anticoagulation -- Massive stroke with mass effect, Continue supportive care -- Acute hypoxic respiratory failure, s/p tracheostomy vent dependent -- Multiple episodes of sepsis with septic shock during her hospitalization s/p aspiration pneumonia/peritonitis from gastric perforation/UTI/candidemia/ decubitus ulcer s/p sacral decubitus debridement, Right pleural effusion - scheduled for chest ultrasound for possible thoracentesis Currently on meropenem with stop date 02/04 --Pleural effusion ; possible thoracentesis by IR to improve respiratory status -- Acute renal failure/ ATN, improved significantly, creatinine near normal limits -- Diabetes, Accu-Cheks and SSI -- Anemia, Multifactorial, status post multiple PRBC transfusions -- Thrombocytopenia/secondary to sepsis -- Electrolyte abnormalities, correct as needed -- Severe protein calorie malnutrition, TPN -- Encephalopathy, Toxic metabolic initially, underlying conditions treated -- full code, poor prognosis Family aware of patient's condition and poor prognosis History Interval history: Patient seen and examined in ICU Clinically no change Vital signs reviewed Hospitalist Physical - Constitutional Vitals: Temp Pulse Resp BP Pulse Ox 98.2 F 155 H 36 H 106/72 98 02/04/17 16:00 02/04/17 14:30 02/04/17 10:45 02/04/17 14:30 02/04/17 12:04 General appearance: Present: no acute distress, well-nourished, other ( tracheostomy on vent) - EENT Eyes: Present: PERRL, EOM intact - Neck Neck: Present: supple, normal ROM - Respiratory Respiratory effort: normal Respiratory: bilateral: diminished, rhonchi, negative: rales, wheezing - Cardiovascular Rhythm: regular Heart Sounds: Present: S1 & S2 - Extremities Extremities: abnormal (contracted) Extremity abnormal: edema - Abdominal General gastrointestinal: soft, non-tender, non-distended, normal bowel sounds, other (PEG in place) - Integumentary Integumentary: Present: clear, warm - Psychiatric Psychiatric: other (noncommunicative) - Neurologic Neurologic: other (unresponsive) Results - Labs CBC & Chem 7: 02/02/17 10:16 02/04/17 04:00 Labs: Laboratory Last Values WBC 12.0 K/mm3 (4.5-11.0) H 02/02/17 10:16 RBC 3.08 M/mm3 (3.65-5.03) L 02/02/17 10:16 Hgb 8.3 gm/dl (10.1-14.3) L 02/02/17 10:16 Hct 25.6 % (30.3-42.9) L 02/02/17 10:16 MCV 83 fl (79-97) 02/02/17 10:16 MCH 27 pg (28-32) L 02/02/17 10:16 MCHC 32 % (30-34) 02/02/17 10:16 RDW 18.2 % (13.2-15.2) H 02/02/17 10:16 Plt Count 336 K/mm3 (140-440) 02/02/17 10:16 Lymph % (Auto) 13.9 % (13.4-35.0) 02/02/17 10:16 [place] % (Auto) 5.8 % (0.0-7.3) 02/02/17 10:16 Eos % (Auto) 1.3 % (0.0-4.3) 02/02/17 10:16 Baso % (Auto) 0.6 % (0.0-1.8) 02/02/17 10:16 Lymph # 1.7 K/mm3 (1.2-5.4) 02/02/17 10:16 [place] # 0.7 K/mm3 (0.0-0.8) 02/02/17 10:16 Eos # 0.2 K/mm3 (0.0-0.4) 02/02/17 10:16 Baso # 0.1 K/mm3 (0.0-0.1) 02/02/17 10:16 Add Manual Diff Complete 12/19/16 05:02 Total Counted 100 12/19/16 05:02 Seg Neutrophils % 78.4 % (40.0-70.0) H 02/02/17 10:16 Seg Neuts % (Manual) 64.0 % (40.0-70.0) 12/19/16 05:02 Band Neutrophils % 15.0 % 12/19/16 05:02 Lymphocytes % (Manual) 13.0 % (13.4-35.0) L 12/19/16 05:02 Reactive Lymphs % (Man) 0 % 12/19/16 05:02 Monocytes % (Manual) 7.0 % (0.0-7.3) 12/19/16 05:02 Eosinophils % (Manual) 0 % (0.0-4.3) 12/19/16 05:02 Basophils % (Manual) 1.0 % (0.0-1.8) 12/19/16 05:02 Metamyelocytes % 0 % 12/19/16 05:02 Myelocytes % 0 % 12/19/16 05:02 Promyelocytes % 0 % 12/19/16 05:02 Blast Cells % 0 % 12/19/16 05:02 Nucleated RBC % 1.0 % (0.0-0.9) H 12/19/16 05:02 Seg Neutrophils # 9.4 K/mm3 (1.8-7.7) H 02/02/17 10:16 Seg Neutrophils # Man 12.9 K/mm3 (1.8-7.7) H 12/19/16 05:02 Band Neutrophils # 3.0 K/mm3 12/19/16 05:02 Lymphocytes # (Manual) 2.6 K/mm3 (1.2-5.4) 12/19/16 05:02 Abs React Lymphs (Man) 0.0 K/mm3 12/19/16 05:02 Monocytes # (Manual) 1.4 K/mm3 (0.0-0.8) H 12/19/16 05:02 Eosinophils # (Manual) 0.0 K/mm3 (0.0-0.4) 12/19/16 05:02 Basophils # (Manual) 0.2 K/mm3 (0.0-0.1) H 12/19/16 05:02 Metamyelocytes # 0.0 K/mm3 12/19/16 05:02 Myelocytes # 0.0 K/mm3 12/19/16 05:02 Promyelocytes # 0.0 K/mm3 12/19/16 05:02 Blast Cells # 0.0 K/mm3 12/19/16 05:02 Pathologist Review 09/13/16 04:00 WBC Morphology Not Reportable 12/19/16 05:02 Hypersegmented Neuts Not Reportable 12/19/16 05:02 Hyposegmented Neuts Not Reportable 12/19/16 05:02 Hypogranular Neuts Not Reportable 12/19/16 05:02 Smudge Cells Not Reportable 12/19/16 05:02 Toxic Granulation Not Reportable 12/19/16 05:02 Toxic Vacuolation Not Reportable 12/19/16 05:02 Dohle Bodies Not Reportable 12/19/16 05:02 Pelger-Huet Anomaly Not Reportable 12/19/16 05:02 Jasmina Rods Not Reportable 12/19/16 05:02 Platelet Estimate Consistent w auto 12/19/16 05:02 Clumped Platelets Not Reportable 12/19/16 05:02 Plt Clumps, EDTA Not Reportable 12/19/16 05:02 Large Platelets Not Reportable 12/19/16 05:02 Giant Platelets Not Reportable 12/19/16 05:02 Platelet Satelliting Not Reportable 12/19/16 05:02 Plt Morphology Comment Not Reportable 12/19/16 05:02 RBC Morphology Not Reportable 12/19/16 05:02 Dimorphic RBCs Not Reportable 12/19/16 05:02 Polychromasia Not Reportable 12/19/16 05:02 Hypochromasia Not Reportable 12/19/16 05:02 Poikilocytosis Not Reportable 12/19/16 05:02 Anisocytosis Not Reportable 12/19/16 05:02 Microcytosis Not Reportable 12/19/16 05:02 Macrocytosis Not Reportable 12/19/16 05:02 Spherocytes Not Reportable 12/19/16 05:02 Pappenheimer Bodies Not Reportable 12/19/16 05:02 Sickle Cells Not Reportable 12/19/16 05:02 Target Cells Few 12/19/16 05:02 Tear Drop Cells Not Reportable 12/19/16 05:02 Ovalocytes Not Reportable 12/19/16 05:02 Stomatocytes Rare 12/03/16 04:00 Helmet Cells Not Reportable 12/19/16 05:02 [place] Bodies Not Reportable 12/19/16 05:02 [place] Rings Not Reportable 12/19/16 05:02 Chuck Cells Not Reportable 12/19/16 05:02 Bite Cells Not Reportable 12/19/16 05:02 Crenated Cell Not Reportable 12/19/16 05:02 Elliptocytes Not Reportable 12/19/16 05:02 Acanthocytes (Spur) Not Reportable 12/19/16 05:02 Rouleaux Not Reportable 12/19/16 05:02 Hemoglobin C Crystals Not Reportable 12/19/16 05:02 Schistocytes Not Reportable 12/19/16 05:02 Malaria parasites Not Reportable 12/19/16 05:02 ESR > 140.0 mm/Hr (0-20) 09/08/16 11:48 Jun Bodies Not Reportable 12/19/16 05:02 Hem Pathologist Commnt No 12/19/16 05:02 PT 15.4 Sec. (12.2-14.9) H 01/13/17 15:50 INR 1.16 (0.87-1.13) H 01/13/17 15:50 APTT 33.0 Sec. (24.2-36.6) 10/09/16 03:45 Thrombin Time 16.8 Sec. (15.1-19.6) 09/03/16 00:10 Fibrinogen 750 mg/dl (211-480) H 09/08/16 11:48 Lupus Anticoagulant see below 09/12/16 09:59 LA PTT Baseline See scanned report 09/12/16 09:59 dRVVT Confirm Interp Positive (Negative) H 09/12/16 09:59 dRVVT Screen 50:50 See scanned report 09/12/16 09:59 dRVVT Mix Interpret See scanned report 09/12/16 09:59 Protein C Antigen 122 % (70-140) 09/08/16 15:35 Free Protein S 97 % normal (50-147) 09/08/16 15:35 Total Protein S 109 % (70-140) 09/08/16 15:35 Antithrombin III Ag 100 % (80-120) 09/08/16 15:35 Heparin Anti-Xa, Unfract Negative (Negative) 09/29/16 13:35 Factor V Activity 182 % (65-150) H 09/08/16 15:35 POC ABG pH 7.436 (7.35-7.45) 01/20/17 12:17 ABG pH 7.450 pH Units (7.350-7.450) 12/05/16 Unknown POC ABG pCO2 35.3 (35-45) 01/20/17 12:17 ABG pCO2 29.6 mm Hg 12/05/16 Unknown POC ABG pO2 70 (80-105) L 01/20/17 12: ABG pO2 75.2 mm Hg (80.0-90.0) L 12/05/16 Unknown POC ABG HCO3 23.8 01/20/17 12: ABG HCO3 20.1 mmol/L (20.0-26.0) 12/05/16 Unknown POC ABG Total CO2 25 01/20/17 12: POC ABG O2 Sat 94 01/20/17 12: ABG O2 Saturation 96.8 % (95.0-99.0) 12/05/16 Unknown ABG O2 Content 9.9 (0.0-44) 12/05/16 Unknown POC ABG Base Excess 0 01/20/17 12: ABG Base Excess -3.4 mmol/L (-2.0-3.0) L 12/05/16 Unknown ABG Hemoglobin 7.4 gm/dl (12.0-16.0) L 12/05/16 Unknown ABG Carboxyhemoglobin 1.8 % (0.0-5.0) 12/05/16 Unknown ABG Methemoglobin 0.6 % (0.0-1.5) 12/05/16 Unknown Oxyhemoglobin 94.5 % (95.0-99.0) L 12/05/16 Unknown FiO2 30 % 01/20/17 12:17 Sodium 136 mmol/L (137-145) L 02/04/17 04:00 Potassium 3.6 mmol/L (3.6-5.0) 02/04/17 04:00 Chloride 100.1 mmol/L (98-107) 02/04/17 04:00 Carbon Dioxide 25 mmol/L (22-30) 02/04/17 04:00 Anion Gap 15 mmol/L 02/04/17 04:00 BUN 58 mg/dL (7-17) H 02/04/17 04:00 Creatinine 1.3 mg/dL (0.7-1.2) H 02/04/17 04:00 Estimated GFR 53 ml/min 02/04/17 04:00 BUN/Creatinine Ratio 45 % 02/04/17 04:00 Glucose 103 mg/dL (65-100) H 02/04/17 04:00 POC Glucose 91 (70-105) 02/04/17 12:08 Osmolality 351 Mosm/kg 09/16/16 11:47 Lactic Acid 2.30 mmol/L (0.7-2.0) H* 01/09/17 08:22 Calcium 9.8 mg/dL (8.4-10.2) 02/04/17 04:00 Phosphorus 2.00 mg/dL (2.5-4.5) L D 02/04/17 04:00 Magnesium 1.60 mg/dL (1.7-2.3) L 02/04/17 04:00 Total Bilirubin 0.50 mg/dL (0.1-1.2) 01/28/17 04:00 Direct Bilirubin 0.2 mg/dL (0-0.2) 01/28/17 04:00 Indirect Bilirubin 0.3 mg/dL 01/28/17 04:00 AST 14 units/L (5-40) 01/28/17 04:00 ALT 9 units/L (7-56) 01/28/17 04:00 Alkaline Phosphatase 113 units/L (35-129) 01/28/17 04:00 Ammonia 27.0 umol/L (25-60) 09/07/16 08:37 Lactate Dehydrogenase 170 units/L (91-180) 01/13/17 15:50 Total Creatine Kinase 121 units/L (30-135) 09/29/16 20:12 CK-MB (CK-2) < 1.0 ng/mL (0.0-4.0) 09/29/16 20:12 CK-MB (CK-2) Rel Index 0.8 (0-4) 09/29/16 20:12 Troponin T 0.204 ng/mL (0.00-0.029) H* 09/29/16 20:12 C-Reactive Protein 8.10 mg/dL (0.00-1.30) H 01/31/17 11:12 Total Protein 6.3 g/dL (6.3-8.2) 01/28/17 04:00 Albumin 1.4 g/dL (3.9-5) L 01/28/17 04:00 Albumin/Globulin Ratio 0.3 % 01/28/17 04:00 Prealbumin 0.110 g/L (0.200-0.400) L 12/29/16 05:15 Triglycerides 137 mg/dL (2-149) 09/29/16 20:12 Cholesterol 31 mg/dL (50-199) L 09/29/16 20:12 LDL Cholesterol Direct 4 mg/dL (50-130) L 09/29/16 20:12 HDL Cholesterol 3 mg/dL (40-59) L 09/29/16 20:12 Cholesterol/HDL Ratio 10.33 % 09/29/16 20:12 Angiotensin Convert Enz See scanned report 09/08/16 11:48 Renin 0.99 ng/mL/h (0.25-5.82) 10/07/16 10:56 Aldosterone <1 ng/dL () 10/07/16 10:56 Aldosterone/Renin Dir see below 10/07/16 10:56 Serotonin Release Assay See scanned report 09/29/16 13:35 TSH 1.010 mlU/mL (0.270-4.200) 09/07/16 08:37 HCG, Qual Negative (Negative) 09/03/16 00:10 PTH Intact 6.76 pg/mL (15-65) L 01/31/17 17:50 Urine Color Yellow (Yellow) 11/05/16 13:09 Urine Turbidity Clear (Clear) 11/05/16 13:09 Urine pH 9.0 (5.0-7.0) H 11/05/16 13:09 Ur Specific [place] 1.011 (1.003-1.030) 11/05/16 13:09 Urine Protein 100 mg/dl mg/dL (Negative) 11/05/16 13:09 Urine Glucose (UA) Neg mg/dL (Negative) 11/05/16 13:09 Urine Ketones Neg mg/dL (Negative) 11/05/16 13:09 Urine Blood Neg (Negative) 11/05/16 13:09 Urine Nitrite Neg (Negative) 11/05/16 13:09 Urine Bilirubin Neg (Negative) 11/05/16 13:09 Urine Urobilinogen < 2.0 mg/dL (<2.0) 11/05/16 13:09 Ur Leukocyte Esterase Neg (Negative) 11/05/16 13:09 Urine WBC (Auto) 4.0 /HPF (0.0-6.0) 11/05/16 13:09 Urine RBC (Auto) 1.0 /HPF (0.0-6.0) 11/05/16 13:09 U Epithel Cells (Auto) 1.0 /HPF (0-13.0) 10/07/16 18:30 Urine Bacteria (Auto) 4+ /HPF (Negative) 11/05/16 13:09 Urine WBC Clumps 2+ /HPF 09/07/16 02:47 Hyaline Casts 4 /LPF 09/07/16 02:47 Urine Mucus Few /HPF 10/07/16 18:30 Urine Yeast (Budding) 3+ /HPF 10/07/16 18:30 Urine Eosinophils None seen (None Seen) 09/07/16 16:00 Urine Total Volume 950 11/12/16 10:18 Urine Creatinine 19.7 mg/dL (0.1-20.0) 11/12/16 10:18 Height (in) 65.0 inches 11/12/16 10:18 Weight (lb) 181.0 lbs 11/12/16 10:18 Creatinine Clearance 5 11/12/16 10:18 Urine Sodium 36 mEq/L 09/16/16 19:19 Urine Total Protein 16 mg/dL (5-11.8) H 09/16/16 19:19 Fluid Type Pleural 01/13/17 12:10 Fluid Color Yellow 01/13/17 12:10 Fluid Appearance Hazy 01/13/17 12:10 Fluid WBC 182 /mm3 01/13/17 12:10 Fluid RBC 41 /mm3 01/13/17 12:10 Fluid Seg Neutrophils 85.0 % 01/13/17 12:10 Fluid Lymphocytes 8.0 % 01/13/17 12:10 Fluid Reactive Lymphs 0 % 01/13/17 12:10 Fluid Monocytes 6.0 % 01/13/17 12:10 Fluid Eosinophils 1.0 % 01/13/17 12:10 Fluid Basophils 0 % 01/13/17 12:10 Fluid Total Protein 3.0 (15.0-45.0) L 01/13/17 12:10 Fluid LDH 1322 01/13/17 12:10 Fluid Comment Diff performed 01/13/17 12:10 Vancomycin Trough 2.3 ug/mL (5.0-20.0) L 09/21/16 13:00 Random Vancomycin 16.5 ug/mL (0-40.0) 11/28/16 09:45 Urine Opiates Screen Presumptive negative 09/03/16 15:11 Urine Methadone Screen Presumptive positive 09/03/16 15:11 Ur Barbiturates Screen Presumptive positive 09/03/16 15:11 Ur Phencyclidine Scrn Presumptive negative 09/03/16 15:11 Ur Amphetamines Screen Presumptive negative 09/03/16 15:11 U Benzodiazepines Scrn Presumptive negative 09/03/16 15:11 Urine Cocaine Screen Presumptive negative 09/03/16 15:11 U Marijuana (THC) Screen Presumptive positive 09/03/16 15:11 Drugs of Abuse Note Disclamer 09/03/16 15:11 Rheumatoid Factor 24 IU/ml (0-13) H 09/08/16 11:48 SAHIL Screen Negative (Negative) 09/07/16 09:20 Proteinase 3 (PR3) Ab <1.0 AI (<1.0) 09/07/16 09:20 Myeloperoxidase Ab <1.0 AI (<1.0) 09/07/16 09:20 Sjogren's Antibody <1.0 AI (<1.0) 09/08/16 15:35 Scl-70 Scleroderma Ab <1.0 AI (<1.0) 09/08/16 15:35 Centromere B Antibody <1.0 AI (<1.0) 09/08/16 12:02 Heparin-induced Plt Ab Negative (Negative) 09/29/16 13:35 UF Heparin High Dose 11 % Release 09/29/16 13:35 SUDHIR UFH Low Dose 0.1 6 % Release 09/29/16 13:35 SUDHIR UFH Low Dose 0.5 8 % Release 09/29/16 13:35 Cardiolipid IgG Ab <14 GPL (<=14) 09/12/16 09:59 Cardiolipid IgA Ab <11 APL (<=11) 09/12/16 09:59 Cardiolipid IgM Ab <12 MPL (<=12) 09/12/16 09:59 Complement C3 148 mg/dL (90-180) 09/07/16 09:20 Complement C4 58 mg/dL (16-47) H 09/07/16 09:20 RPR Nonreactive (Nonreactive) 09/08/16 11:48 Hepatitis A IgM Ab Non-reactive (NonReactive) 09/24/16 14:40 Hep Bs Antigen Non-reactive (Negative) 09/24/16 14:40 Hep B Core IgM Ab Non-reactive (NonReactive) 09/24/16 14:40 Hepatitis C Antibody Non-reactive (NonReactive) 09/24/16 14:40 HIV 1&2 Antibody Rapid Non react (Non React) 09/08/16 11:48 HIV P24 Antigen Non react (Non React) 09/08/16 11:48 Miscellaneous Test Flexitest 1 H 01/09/17 18:45 Blood Type A POSITIVE 01/25/17 11:15 Antibody Screen Negative 01/25/17 11:15 DELORIS Antibody Screen Negative 11/24/16 11:20 Crossmatch See Detail 01/25/17 11:15
[2017-02-04] MEDS ORDERED: TPN ADULT IV SCH (20:00)
[2017-02-05] MEDS: LOPRESSOR IV PRN ×2 (01:19→06:44)
[2017-02-05] MEDS: DUONEB *Not for PRN Use IH SCH ×4 (02:19→19:36)
[2017-02-05] MEDS: ZOFRAN IV PRN (05:05)
[2017-02-05] MEDS: REGLAN IV SCH ×3 (05:05→21:19)
[2017-02-05] MEDS: DILAUDID IV PRN (05:05)
[2017-02-05 05:35] LABS: Calcium 10.7 mg/dL (8.4-10.2)
[2017-02-05] MEDS ORDERED: Vasostrict 20 UNIT in NACL 0.9% 100 ML IV SCH (06:00)
[2017-02-05] MEDS ORDERED: CORDARONE 150 MG in D5W 100 ML IV SCH (06:00)
[2017-02-05] MEDS: HumuLIN R SUB-Q SCH ×3 (06:40→19:06)
--- NOTE | 2017-02-05 08:50 | Progress Note ---
Subjective Principal diagnosis: Acute resp failure on MVS; S/P Acute CVA; Acute Encephalopathy; JUANITA Interval history: Patient was seen today for follow-up on multiple renal-related issues Around 9: 45 in the morning Neurologically her status has been unchanged, she is alert awake Patient is currently pending placement Lab results were reviewed Social history: Reviewed Medication: Reviewed Family history: Reviewed Allergies: Reviewed Physical examination General; no acute distress HEENT: Mild pallor no icterus oral mucosa moist Neck: Supple soft no jugular venous distention, cath site essentially unremarkable Chest: Bilateral clear to auscultation anteriorly posteriorly a few faint basilar crackles at the lung bases no wheezes Cardiovascular: S1-S2 heart no S3-S4 Abdomen: Soft nontender no voluntary guarding rigidity rebound no organomegaly no masses no suprapubic fullness no CVA tenderness Extremity: Minimal edema dry skin no tenderness in the Area Derm: Dry skin Assessment and plan Acute kidney injury with underlying severe chronic kidney disease patient is currently dialysis dependent. some days patient does make approximately 600 cc of urine There are some additional losses that needs to be accounted for/may need some IV fluid Monitor for any recovery of renal function Current dialysis access is a permacath which seems to be working well Periodically consider transfusion if hemoglobin is under 7 preferably avoid erythropoietin due to history of stroke Phosphorus and PTH level satisfactory February 02 Continue with supportive care,Prognosis poor mortality risk due to many comorbidities Respiratory failure, massive stroke, paroxysmal atrial fibrillation failed cardioversion Objective - Vital Signs Vital signs: Vital Signs - 12hr 02/04/17 02/04/17 02/04/17 21:00 21:30 22:00 Temperature Pulse Rate 122 H 118 H 114 H Pulse Rate [ Apical] Pulse Rate [ From Monitor] Pulse Rate [ Right Lower Lobe] Respiratory 18 20 20 Rate Respiratory 20 Rate [ Generalized] Respiratory Rate [Right Lower Lobe] Blood Pressure 115/55 103/63 104/59 O2 Sat by Pulse 100 96 98 Oximetry O2 Sat by Pulse Oximetry [ Assessment] 02/04/17 02/04/17 02/04/17 22:30 23:00 23:02 Temperature Pulse Rate 118 H 116 H 119 H Pulse Rate [ Apical] Pulse Rate [ From Monitor] Pulse Rate [ Right Lower Lobe] Respiratory 25 H 27 H 29 H Rate Respiratory Rate [ Generalized] Respiratory Rate [Right Lower Lobe] Blood Pressure 117/78 122/79 118/61 O2 Sat by Pulse 100 97 96 Oximetry O2 Sat by Pulse Oximetry [ Assessment] 02/04/17 02/04/17 02/04/17 23:16 23:20 23:31 Temperature Pulse Rate 118 H 130 H Pulse Rate [ Apical] Pulse Rate [ From Monitor] Pulse Rate [ Right Lower Lobe] Respiratory 18 26 H Rate Respiratory Rate [ Generalized] Respiratory Rate [Right Lower Lobe] Blood Pressure 114/75 172/98 O2 Sat by Pulse 100 99 Oximetry O2 Sat by Pulse 98 Oximetry [ Assessment] 02/05/17 02/05/17 02/05/17 00:00 00:30 01:00 Temperature 97.6 F Pulse Rate 125 H 123 H 110 H Pulse Rate [ 150 H Apical] Pulse Rate [ 150 H From Monitor] Pulse Rate [ Right Lower Lobe] Respiratory 20 24 19 Rate Respiratory Rate [ Generalized] Respiratory Rate [Right Lower Lobe] Blood Pressure 129/86 123/66 112/82 O2 Sat by Pulse 100 99 100 Oximetry O2 Sat by Pulse Oximetry [ Assessment] 02/05/17 02/05/17 02/05/17 01:19 01:30 02:00 Temperature Pulse Rate 164 H 134 H 147 H Pulse Rate [ Apical] Pulse Rate [ From Monitor] Pulse Rate [ Right Lower Lobe] Respiratory 21 19 Rate Respiratory Rate [ Generalized] Respiratory Rate [Right Lower Lobe] Blood Pressure 121/82 116/80 131/79 O2 Sat by Pulse 99 100 Oximetry O2 Sat by Pulse Oximetry [ Assessment] 02/05/17 02/05/17 02/05/17 02:19 02:30 02:52 Temperature Pulse Rate 118 H Pulse Rate [ Apical] Pulse Rate [ From Monitor] Pulse Rate [ 108 H 106 H Right Lower Lobe] Respiratory 25 H Rate Respiratory Rate [ Generalized] Respiratory 23 20 Rate [Right Lower Lobe] Blood Pressure 121/94 O2 Sat by Pulse 100 Oximetry O2 Sat by Pulse Oximetry [ Assessment] 02/05/17 02/05/17 02/05/17 03:00 03:30 04:00 Temperature 98.7 F Pulse Rate 110 H 118 H 110 H Pulse Rate [ 136 H Apical] Pulse Rate [ 136 H From Monitor] Pulse Rate [ Right Lower Lobe] Respiratory 18 26 H 21 Rate Respiratory Rate [ Generalized] Respiratory Rate [Right Lower Lobe] Blood Pressure 117/90 128/76 119/71 O2 Sat by Pulse 100 98 100 Oximetry O2 Sat by Pulse Oximetry [ Assessment] 02/05/17 02/05/17 02/05/17 04:30 05:00 05:05 Temperature Pulse Rate 123 H 143 H Pulse Rate [ Apical] Pulse Rate [ From Monitor] Pulse Rate [ Right Lower Lobe] Respiratory 20 18 18 Rate Respiratory Rate [ Generalized] Respiratory Rate [Right Lower Lobe] Blood Pressure 148/110 111/84 O2 Sat by Pulse 99 Oximetry O2 Sat by Pulse Oximetry [ Assessment] 02/05/17 02/05/17 02/05/17 05:30 05:35 06:00 Temperature Pulse Rate 151 H 139 H Pulse Rate [ Apical] Pulse Rate [ From Monitor] Pulse Rate [ Right Lower Lobe] Respiratory 14 16 15 Rate Respiratory Rate [ Generalized] Respiratory Rate [Right Lower Lobe] Blood Pressure 114/74 119/83 O2 Sat by Pulse 100 100 Oximetry O2 Sat by Pulse Oximetry [ Assessment] 02/05/17 02/05/17 06:44 08:00 Temperature 98.2 F Pulse Rate 160 H Pulse Rate [ Apical] Pulse Rate [ From Monitor] Pulse Rate [ Right Lower Lobe] Respiratory Rate Respiratory Rate [ Generalized] Respiratory Rate [Right Lower Lobe] Blood Pressure O2 Sat by Pulse Oximetry O2 Sat by Pulse Oximetry [ Assessment] - Lab 02/05/17 09:59 02/05/17 04:00 Most recent lab results ABG pH 7.450 pH Units (7.350-7.450) 12/05/16 Unknown ABG pCO2 29.6 mm Hg 12/05/16 Unknown ABG pO2 75.2 mm Hg (80.0-90.0) L 12/05/16 Unknown ABG HCO3 20.1 mmol/L (20.0-26.0) 12/05/16 Unknown ABG O2 Saturation 96.8 % (95.0-99.0) 12/05/16 Unknown Calcium 10.7 mg/dL (8.4-10.2) H 02/05/17 04:00 Phosphorus 2.90 mg/dL (2.5-4.5) D 02/05/17 04:00 Magnesium 1.80 mg/dL (1.7-2.3) 02/05/17 04:00 Urine Creatinine 19.7 mg/dL (0.1-20.0) 11/12/16 10:18 Urine Sodium 36 mEq/L 09/16/16 19:19 Urine Total Protein 16 mg/dL (5-11.8) H 09/16/16 19:19
--- NOTE | 2017-02-05 09:23 | XRay Report ---
AP CHEST 02/05/17 CLINICAL: Pneumonia COMPARISON:Previous day. FINDINGS: The tracheostomy tube is in satisfactory position. The feeding tube is satisfactory. The left PICC line tip is in the right atrium and is unchanged. The heart is normal size. Mild central vascular congestion. Mild bilateral hilar haziness and bibasal haziness. Slightly less haziness in the right lung base than on the prior exam. Persistent right upper lobe air bronchograms but less prominent left upper lobe air bronchograms. No pneumothorax. IMPRESSION: Little change since the last exam. Suspect small pleural effusions. Mild pulmonary edema versus pneumonia.
[2017-02-05 10:17] LABS: Basophils % (Auto) 0.5 % (0.0-1.8); Eosinophils # (Auto) 0.2 K/mm3 (0.0-0.4); Eosinophils % (Auto) 1.8 % (0.0-4.3); Hematocrit 22.5 % (30.3-42.9); Hemoglobin 7.2 gm/dl (10.1-14.3); Lymphocytes % (Auto) 19.3 % (13.4-35.0); Mean Corpuscular HGB Conc 32 % (30-34); Mean Corpuscular Hemoglobin 27 pg (28-32); Mean Corpuscular Volume 84 fl (79-97); Monocytes # (Auto) 0.9 K/mm3 (0.0-0.8); Monocytes % (Auto) 9.2 % (0.0-7.3); Platelet Count 272 K/mm3 (140-440); Red Blood Count 2.69 M/mm3 (3.65-5.03); Red Cell Distribution Width 18.6 % (13.2-15.2)
[2017-02-05] MEDS: HEPARIN SUB-Q SCH ×2 (11:52→21:18)
[2017-02-05] MEDS: ROBINUL PO SCH ×2 (11:52→21:19)
[2017-02-05] MEDS: PROTONIX FEEDTUBE SCH (11:53)
--- NOTE | 2017-02-05 15:50 | Progress Note ---
Assessment and Plan Patient is 46-year-old woman with a history of hypertension, diabetes mellitus, asthma, hyperlipidemia, chronic kidney disease and anxiety, who was brought in by family because she couldn't get her words out, her face was also twisted, she was admitted for acute CVA and accelerated hypertension, she had a hx of poor adherence with her medications, and uncontrolled hypertension. Patient's SBP on admission was noted be greater than 260. TPA was started but this it was discontinued after 5 minutes because her blood pressure became uncontrolled. The TPA was not initiated again because the patient was outside the TPA window. Patient has had a prolonged hospital stay complicated with recurrent severe sepsis. Patient with most recent event also status post cardiac arrest on 11/21/16 , with CPR and ROSC. Acute on chronic Hypoxemic Respiratory Failure Sepsis -recurrent s/p tracheostomy Hypertension Atrial Fibrillation with RVR Acute encephalopathy s/p CVA Oropharyngeal dysphagia Enterococcal bacteremia Sacral Decubitus Ulcer- unstageable s/p debridement Anemia Obesity JUANITA now on hemodialysis Enteric Fistula - VAP bundle addressed - continue NGT to LIS -Continue promotility agent--reglan - continue wound care/wound vac per WCT - Vasopressor if MAP falls < 65mmHg - keep on with daily PSV trials and / or T-piece as tolerated - continue TPN administration (continue TPN; NPO except for meds) - continue airway clearance and secretion management - continue to wean FiO2 for sats > 94% - continue to monitor hemodynamics closely - continue HD/UF per nephrology - continue to follow electrolytes and correct as necessary - continue GI & VTE prophylaxis Transfuse 1 unit PRBC as needed to keep HgH>7g/dL .....she remains critically ill on life sustaining interventions including MVS and at risk for further deterioration including -no furthere [id number] per surgical service for large output drainage ...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 - Patient Problems (1) Acute respiratory failure with hypoxia Current Visit: Yes Status: Acute (2) Acute blood loss anemia Current Visit: Yes Status: Resolved (3) Acute CVA (cerebrovascular accident) Current Visit: Yes Status: Acute (4) Chronic renal insufficiency Current Visit: Yes Status: Acute (5) Uncontrolled hypertension Current Visit: Yes Status: Acute (6) Leukocytosis (leucocytosis) Current Visit: Yes Status: Acute Qualifiers: Leukocytosis type: leukemoid reaction Qualified Code(s): D72.823 - Leukemoid reaction (7) Dislodged gastrostomy tube Current Visit: Yes Status: Acute (8) Fungemia Current Visit: Yes Status: Resolved (9) Cardiopulmonary arrest with successful resuscitation Current Visit: Yes Status: Acute Subjective Date of service: 02/05/17 Principal diagnosis: Acute resp failure on MVS; S/P Acute CVA; Acute Encephalopathy; JUANITA Interval history: Patient is seen today for: Acute resp failure on MVS; S/P Acute CVA; Acute Encephalopathy; JUANITA Seen and examined at bedside; 24hour events reviewed; nursing and respiratory care staff consulted; no adverse overnight events reported to me; she remains critically ill Large output from one of her abdominal drains with hypotension requiring volume resuscitation over night. Much improved blood pressure. Did not require vasopressor support No fevers. Currently on PSV 15/5, with tidal volumes of about 300 Vitals, labs, medications, chart reviewed. Objective - Exam Narrative Exam: General appearance: somnolent non communicative, on the vent via trach in no respiratory distress, not following commands Eyes: anicteric sclera, moist conjunctivae; PERRLA HENT: Atraumatic; oropharynx limited; Normal external ears. +NGT with greenish secretion Neck: +trach in place; supple, no thyromegaly or lymphadenopathy Lungs: brit coarse BS CV:RRR, no mumurs, gallops or rubs Abdomen: Soft, non-tender, +old PEG site no drainage. +iliostomy. Right sided Surgical site x 2 with ostomy bag draining small amount yellowish secretion Extremities: +peripheral edema Skin: sacral area wounds -s/p wound vac Neuro: alert non verbal on the vent. Lines: PICC / gutierrez Vital Signs - 12hr 02/05/17 02/05/17 02/05/17 04:00 04:30 05:00 Temperature 98.7 F Pulse Rate 110 H 123 H 143 H Pulse Rate [ Anterior Bilateral Throughout] Pulse Rate [ 136 H Apical] Pulse Rate [ 136 H From Monitor] Respiratory 21 20 18 Rate Respiratory Rate [Anterior Bilateral Throughout] Blood Pressure 119/71 148/110 111/84 O2 Sat by Pulse 100 99 Oximetry O2 Sat by Pulse Oximetry [ Assessment] 02/05/17 02/05/17 02/05/17 05:05 05:30 05:35 Temperature Pulse Rate 151 H Pulse Rate [ Anterior Bilateral Throughout] Pulse Rate [ Apical] Pulse Rate [ From Monitor] Respiratory 18 14 16 Rate Respiratory Rate [Anterior Bilateral Throughout] Blood Pressure 114/74 O2 Sat by Pulse 100 Oximetry O2 Sat by Pulse Oximetry [ Assessment] 02/05/17 02/05/17 02/05/17 06:00 06:30 06:44 Temperature Pulse Rate 139 H 100 H 160 H Pulse Rate [ Anterior Bilateral Throughout] Pulse Rate [ Apical] Pulse Rate [ From Monitor] Respiratory 15 18 Rate Respiratory Rate [Anterior Bilateral Throughout] Blood Pressure 119/83 119/79 O2 Sat by Pulse 100 100 Oximetry O2 Sat by Pulse Oximetry [ Assessment] 02/05/17 02/05/17 02/05/17 07:00 07:30 08:00 Temperature 98.2 F Pulse Rate 96 H 96 H 96 H Pulse Rate [ Anterior Bilateral Throughout] Pulse Rate [ Apical] Pulse Rate [ From Monitor] Respiratory 17 16 12 Rate Respiratory Rate [Anterior Bilateral Throughout] Blood Pressure 106/66 123/81 124/79 O2 Sat by Pulse 100 100 100 Oximetry O2 Sat by Pulse Oximetry [ Assessment] 02/05/17 02/05/17 02/05/17 08:30 09:00 09:30 Temperature Pulse Rate 96 H 99 H 96 H Pulse Rate [ Anterior Bilateral Throughout] Pulse Rate [ Apical] Pulse Rate [ From Monitor] Respiratory 17 18 14 Rate Respiratory Rate [Anterior Bilateral Throughout] Blood Pressure 133/91 159/102 145/93 O2 Sat by Pulse 100 100 100 Oximetry O2 Sat by Pulse Oximetry [ Assessment] 02/05/17 02/05/17 02/05/17 10:00 10:23 10:30 Temperature Pulse Rate 102 H 97 H 92 H Pulse Rate [ 95 H Anterior Bilateral Throughout] Pulse Rate [ Apical] Pulse Rate [ From Monitor] Respiratory 20 19 Rate Respiratory 14 Rate [Anterior Bilateral Throughout] Blood Pressure 136/95 129/88 132/83 O2 Sat by Pulse 100 100 100 Oximetry O2 Sat by Pulse Oximetry [ Assessment] 02/05/17 02/05/17 02/05/17 10:44 11:00 11:30 Temperature Pulse Rate 99 H 102 H 102 H Pulse Rate [ 102 H Anterior Bilateral Throughout] Pulse Rate [ Apical] Pulse Rate [ From Monitor] Respiratory 37 H 40 H 25 H Rate Respiratory 37 H Rate [Anterior Bilateral Throughout] Blood Pressure 132/83 134/84 107/61 O2 Sat by Pulse 100 100 93 Oximetry O2 Sat by Pulse 100 Oximetry [ Assessment] 02/05/17 02/05/17 02/05/17 12:00 14:13 14:21 Temperature 98.8 F Pulse Rate 107 H Pulse Rate [ 110 H Anterior Bilateral Throughout] Pulse Rate [ Apical] Pulse Rate [ From Monitor] Respiratory 37 H Rate Respiratory 35 H Rate [Anterior Bilateral Throughout] Blood Pressure 144/80 O2 Sat by Pulse 100 Oximetry O2 Sat by Pulse Oximetry [ Assessment] 02/05/17 14:31 Temperature Pulse Rate Pulse Rate [ 110 H Anterior Bilateral Throughout] Pulse Rate [ Apical] Pulse Rate [ From Monitor] Respiratory Rate Respiratory 33 H Rate [Anterior Bilateral Throughout] Blood Pressure O2 Sat by Pulse Oximetry O2 Sat by Pulse Oximetry [ Assessment] Constitutional: appears uncomfortable, other (not tracking) Eyes: non-icteric, other (tracheostomy tube in midline of neck) ENT: oropharynx moist, oropharyngeal exudate pre Neck: supple, no lymphadenopathy, no JVD, other (no thyromegaly) Effort: mildly labored Ascultation: Bilateral: clear, diminished breath sounds (right base), rales, rhonchi (and referred upper airway sounds) Percussion: Right: dull (base), Bilateral: not dull Cardiovascular: regular rate and rhythm, other (no rubs / murmurs) Gastrointestinal: hypoactive bowel sounds, soft, non-tender, non-distended, other (RLQ & LUQ stomas with colostomy bags) Integumentary: decubitus ulcer (sacral; stage 4 s/p surgical debridement), other (no rash; no cellulitis; poor turgor) Extremities: no cyanosis, pulses normal, no ischemia or petechiae, edema (1+ bilaterally) Neurologic: pupils equal and round, unable to assess, other (encephalopathic) Psychiatric: other (unable to assess) CBC and BMP: 02/05/17 09:59 02/05/17 04:00 ABG, PT/INR, D-dimer: ABG POC ABG pH 7.436 (7.35-7.45) 01/20/17 12:17 ABG pH 7.450 pH Units (7.350-7.450) 12/05/16 Unknown POC ABG pCO2 35.3 (35-45) 01/20/17 12:17 ABG pCO2 29.6 mm Hg 12/05/16 Unknown POC ABG pO2 70 (80-105) L 01/20/17 12:17 ABG pO2 75.2 mm Hg (80.0-90.0) L 12/05/16 Unknown POC ABG HCO3 23.8 01/20/17 12:17 POC ABG Total CO2 25 01/20/17 12:17 POC ABG O2 Sat 94 01/20/17 12: ABG O2 Saturation 96.8 % (95.0-99.0) 12/05/16 Unknown PT/INR, D-dimer PT 15.4 Sec. (12.2-14.9) H 01/13/17 15:50 INR 1.16 (0.87-1.13) H 01/13/17 15:50 Abnormal lab findings: Abnormal Labs 09/03/16 09/03/16 09/03/16 00:03 00:10 00:10 WBC 13.9 H RBC 5.95 H Hgb Hct 44.0 H MCV 74 L MCH 22 L MCHC RDW 17.5 H Plt Count Lymph % (Auto) [place] % (Auto) Lymph # [place] # Baso # Seg Neutrophils % Seg Neuts % (Manual) Lymphocytes % (Manual) 54.0 H Monocytes % (Manual) Eosinophils % (Manual) Basophils % (Manual) Nucleated RBC % Seg Neutrophils # Seg Neutrophils # Man Lymphocytes # (Manual) 7.5 H Monocytes # (Manual) Eosinophils # (Manual) Basophils # (Manual) PT INR Fibrinogen dRVVT Confirm Interp Factor V Activity POC ABG pH POC ABG pCO2 POC ABG pO2 ABG pO2 ABG HCO3 ABG Base Excess ABG Hemoglobin Oxyhemoglobin Sodium Potassium 2.8 L* Chloride Carbon Dioxide 21 L BUN Creatinine 1.7 H Glucose 159 H POC Glucose 177 H Lactic Acid Calcium Phosphorus Magnesium Direct Bilirubin AST ALT Alkaline Phosphatase Lactate Dehydrogenase Troponin T C-Reactive Protein Total Protein Albumin Prealbumin Triglycerides Cholesterol LDL Cholesterol Direct HDL Cholesterol PTH Intact Urine pH Urine WBC (Auto) Urine Creatinine Urine Total Protein Fluid Total Protein Vancomycin Trough Rheumatoid Factor Complement C4 Miscellaneous Test Crossmatch 09/03/16 09/03/16 09/03/16 12:12 15:07 16:20 WBC RBC Hgb Hct MCV MCH MCHC RDW Plt Count Lymph % (Auto) [place] % (Auto) Lymph # [place] # Baso # Seg Neutrophils % Seg Neuts % (Manual) Lymphocytes % (Manual) Monocytes % (Manual) Eosinophils % (Manual) Basophils % (Manual) Nucleated RBC % Seg Neutrophils # Seg Neutrophils # Man Lymphocytes # (Manual) Monocytes # (Manual) Eosinophils # (Manual) Basophils # (Manual) PT INR Fibrinogen dRVVT Confirm Interp Factor V Activity POC ABG pH 7.452 H POC ABG pCO2 POC ABG pO2 ABG pO2 ABG HCO3 ABG Base Excess ABG Hemoglobin Oxyhemoglobin Sodium Potassium Chloride Carbon Dioxide BUN Creatinine Glucose POC Glucose 178 H Lactic Acid Calcium Phosphorus 2.20 L Magnesium 1.60 L Direct Bilirubin AST ALT Alkaline Phosphatase Lactate Dehydrogenase Troponin T C-Reactive Protein Total Protein Albumin Prealbumin Triglycerides Cholesterol LDL Cholesterol Direct HDL Cholesterol PTH Intact Urine pH Urine WBC (Auto) Urine Creatinine Urine Total Protein Fluid Total Protein Vancomycin Trough Rheumatoid Factor Complement C4 Miscellaneous Test Crossmatch 09/03/16 09/03/16 09/03/16 17:57 17:58 23:50 WBC RBC Hgb Hct MCV MCH MCHC RDW Plt Count Lymph % (Auto) [place] % (Auto) Lymph # [place] # Baso # Seg Neutrophils % Seg Neuts % (Manual) Lymphocytes % (Manual) Monocytes % (Manual) Eosinophils % (Manual) Basophils % (Manual) Nucleated RBC % Seg Neutrophils # Seg Neutrophils # Man Lymphocytes # (Manual) Monocytes # (Manual) Eosinophils # (Manual) Basophils # (Manual) PT INR Fibrinogen dRVVT Confirm Interp Factor V Activity POC ABG pH POC ABG pCO2 POC ABG pO2 ABG pO2 ABG HCO3 ABG Base Excess ABG Hemoglobin Oxyhemoglobin Sodium Potassium Chloride Carbon Dioxide BUN Creatinine Glucose POC Glucose 162 H 145 H Lactic Acid Calcium Phosphorus 2.30 L Magnesium Direct Bilirubin AST ALT Alkaline Phosphatase Lactate Dehydrogenase Troponin T C-Reactive Protein Total Protein Albumin Prealbumin Triglycerides Cholesterol LDL Cholesterol Direct HDL Cholesterol PTH Intact Urine pH Urine WBC (Auto) Urine Creatinine Urine Total Protein Fluid Total Protein Vancomycin Trough Rheumatoid Factor Complement C4 Miscellaneous Test Crossmatch 09/04/16 09/04/16 09/04/16 03:31 03:31 05:42 WBC RBC Hgb 9.7 L D Hct MCV 72 L MCH 23 L MCHC RDW 17.5 H Plt Count Lymph % (Auto) 11.1 L [place] % (Auto) Lymph # [place] # Baso # Seg Neutrophils % 84.3 H Seg Neuts % (Manual) Lymphocytes % (Manual) Monocytes % (Manual) Eosinophils % (Manual) Basophils % (Manual) Nucleated RBC % Seg Neutrophils # 8.9 H Seg Neutrophils # Man Lymphocytes # (Manual) Monocytes # (Manual) Eosinophils # (Manual) Basophils # (Manual) PT INR Fibrinogen dRVVT Confirm Interp Factor V Activity POC ABG pH POC ABG pCO2 POC ABG pO2 ABG pO2 ABG HCO3 ABG Base Excess ABG Hemoglobin Oxyhemoglobin Sodium 135 L Potassium 2.9 L* Chloride 97.2 L Carbon Dioxide 19 L BUN Creatinine 1.7 H Glucose 170 H POC Glucose 152 H Lactic Acid Calcium Phosphorus Magnesium Direct Bilirubin AST ALT Alkaline Phosphatase Lactate Dehydrogenase Troponin T C-Reactive Protein Total Protein Albumin Prealbumin Triglycerides 160 H Cholesterol LDL Cholesterol Direct HDL Cholesterol 31 L PTH Intact Urine pH Urine WBC (Auto) Urine Creatinine Urine Total Protein Fluid Total Protein Vancomycin Trough Rheumatoid Factor Complement C4 Miscellaneous Test Crossmatch 09/04/16 09/04/16 09/04/16 11:34 17:46 23:29 WBC RBC Hgb Hct MCV MCH MCHC RDW Plt Count Lymph % (Auto) [place] % (Auto) Lymph # [place] # Baso # Seg Neutrophils % Seg Neuts % (Manual) Lymphocytes % (Manual) Monocytes % (Manual) Eosinophils % (Manual) Basophils % (Manual) Nucleated RBC % Seg Neutrophils # Seg Neutrophils # Man Lymphocytes # (Manual) Monocytes # (Manual) Eosinophils # (Manual) Basophils # (Manual) PT INR Fibrinogen dRVVT Confirm Interp Factor V Activity POC ABG pH POC ABG pCO2 POC ABG pO2 ABG pO2 ABG HCO3 ABG Base Excess ABG Hemoglobin Oxyhemoglobin Sodium Potassium Chloride Carbon Dioxide BUN Creatinine Glucose POC Glucose 165 H 210 H 139 H Lactic Acid Calcium Phosphorus Magnesium Direct Bilirubin AST ALT Alkaline Phosphatase Lactate Dehydrogenase Troponin T C-Reactive Protein Total Protein Albumin Prealbumin Triglycerides Cholesterol LDL Cholesterol Direct HDL Cholesterol PTH Intact Urine pH Urine WBC (Auto) Urine Creatinine Urine Total Protein Fluid Total Protein Vancomycin Trough Rheumatoid Factor Complement C4 Miscellaneous Test Crossmatch 09/05/16 09/05/16 09/05/16 04:05 04:05 05:38 WBC RBC Hgb Hct MCV 76 L D MCH 23 L MCHC RDW 17.8 H Plt Count Lymph % (Auto) [place] % (Auto) Lymph # [place] # Baso # Seg Neutrophils % Seg Neuts % (Manual) Lymphocytes % (Manual) Monocytes % (Manual) Eosinophils % (Manual) Basophils % (Manual) Nucleated RBC % Seg Neutrophils # Seg Neutrophils # Man Lymphocytes # (Manual) Monocytes # (Manual) Eosinophils # (Manual) Basophils # (Manual) PT INR Fibrinogen dRVVT Confirm Interp Factor V Activity POC ABG pH POC ABG pCO2 POC ABG pO2 ABG pO2 ABG HCO3 ABG Base Excess ABG Hemoglobin Oxyhemoglobin Sodium 134 L Potassium Chloride Carbon Dioxide 18 L BUN Creatinine 1.8 H Glucose 192 H POC Glucose 175 H Lactic Acid Calcium Phosphorus Magnesium Direct Bilirubin AST ALT Alkaline Phosphatase Lactate Dehydrogenase Troponin T C-Reactive Protein Total Protein Albumin Prealbumin Triglycerides Cholesterol LDL Cholesterol Direct HDL Cholesterol PTH Intact Urine pH Urine WBC (Auto) Urine Creatinine Urine Total Protein Fluid Total Protein Vancomycin Trough Rheumatoid Factor Complement C4 Miscellaneous Test Crossmatch 09/05/16 09/05/16 09/05/16 11:38 17:48 23:22 WBC RBC Hgb Hct MCV MCH MCHC RDW Plt Count Lymph % (Auto) [place] % (Auto) Lymph # [place] # Baso # Seg Neutrophils % Seg Neuts % (Manual) Lymphocytes % (Manual) Monocytes % (Manual) Eosinophils % (Manual) Basophils % (Manual) Nucleated RBC % Seg Neutrophils # Seg Neutrophils # Man Lymphocytes # (Manual) Monocytes # (Manual) Eosinophils # (Manual) Basophils # (Manual) PT INR Fibrinogen dRVVT Confirm Interp Factor V Activity POC ABG pH POC ABG pCO2 POC ABG pO2 ABG pO2 ABG HCO3 ABG Base Excess ABG Hemoglobin Oxyhemoglobin Sodium Potassium Chloride Carbon Dioxide BUN Creatinine Glucose POC Glucose 164 H 186 H 195 H Lactic Acid Calcium Phosphorus Magnesium Direct Bilirubin AST ALT Alkaline Phosphatase Lactate Dehydrogenase Troponin T C-Reactive Protein Total Protein Albumin Prealbumin Triglycerides Cholesterol LDL Cholesterol Direct HDL Cholesterol PTH Intact Urine pH Urine WBC (Auto) Urine Creatinine Urine Total Protein Fluid Total Protein Vancomycin Trough Rheumatoid Factor Complement C4 Miscellaneous Test Crossmatch 09/06/16 09/06/16 09/06/16 04:12 05:59 07:32 WBC RBC Hgb Hct MCV MCH MCHC RDW Plt Count Lymph % (Auto) [place] % (Auto) Lymph # [place] # Baso # Seg Neutrophils % Seg Neuts % (Manual) Lymphocytes % (Manual) Monocytes % (Manual) Eosinophils % (Manual) Basophils % (Manual) Nucleated RBC % Seg Neutrophils # Seg Neutrophils # Man Lymphocytes # (Manual) Monocytes # (Manual) Eosinophils # (Manual) Basophils # (Manual) PT INR Fibrinogen dRVVT Confirm Interp Factor V Activity POC ABG pH 7.514 H POC ABG pCO2 29.1 L POC ABG pO2 72 L ABG pO2 ABG HCO3 ABG Base Excess ABG Hemoglobin Oxyhemoglobin Sodium 133 L Potassium 3.4 L Chloride 94.9 L Carbon Dioxide 19 L BUN 30 H Creatinine 2.1 H Glucose 139 H POC Glucose 146 H Lactic Acid Calcium Phosphorus Magnesium Direct Bilirubin AST ALT Alkaline Phosphatase Lactate Dehydrogenase Troponin T C-Reactive Protein Total Protein Albumin Prealbumin Triglycerides Cholesterol LDL Cholesterol Direct HDL Cholesterol PTH Intact Urine pH Urine WBC (Auto) Urine Creatinine Urine Total Protein Fluid Total Protein Vancomycin Trough Rheumatoid Factor Complement C4 Miscellaneous Test Crossmatch 09/06/16 09/06/16 09/06/16 11:57 17:58 19:02 WBC RBC Hgb Hct MCV MCH MCHC RDW Plt Count Lymph % (Auto) [place] % (Auto) Lymph # [place] # Baso # Seg Neutrophils % Seg Neuts % (Manual) Lymphocytes % (Manual) Monocytes % (Manual) Eosinophils % (Manual) Basophils % (Manual) Nucleated RBC % Seg Neutrophils # Seg Neutrophils # Man Lymphocytes # (Manual) Monocytes # (Manual) Eosinophils # (Manual) Basophils # (Manual) PT INR Fibrinogen dRVVT Confirm Interp Factor V Activity POC ABG pH 7.465 H POC ABG pCO2 32.0 L POC ABG pO2 ABG pO2 ABG HCO3 ABG Base Excess ABG Hemoglobin Oxyhemoglobin Sodium Potassium Chloride Carbon Dioxide BUN Creatinine Glucose POC Glucose 165 H 160 H Lactic Acid Calcium Phosphorus Magnesium Direct Bilirubin AST ALT Alkaline Phosphatase Lactate Dehydrogenase Troponin T C-Reactive Protein Total Protein Albumin Prealbumin Triglycerides Cholesterol LDL Cholesterol Direct HDL Cholesterol PTH Intact Urine pH Urine WBC (Auto) Urine Creatinine Urine Total Protein Fluid Total Protein Vancomycin Trough Rheumatoid Factor Complement C4 Miscellaneous Test Crossmatch 09/06/16 09/07/16 09/07/16 23:45 02:47 02:47 WBC RBC Hgb Hct MCV MCH MCHC RDW Plt Count Lymph % (Auto) [place] % (Auto) Lymph # [place] # Baso # Seg Neutrophils % Seg Neuts % (Manual) Lymphocytes % (Manual) Monocytes % (Manual) Eosinophils % (Manual) Basophils % (Manual) Nucleated RBC % Seg Neutrophils # Seg Neutrophils # Man Lymphocytes # (Manual) Monocytes # (Manual) Eosinophils # (Manual) Basophils # (Manual) PT INR Fibrinogen dRVVT Confirm Interp Factor V Activity POC ABG pH POC ABG pCO2 POC ABG pO2 ABG pO2 ABG HCO3 ABG Base Excess ABG Hemoglobin Oxyhemoglobin Sodium Potassium Chloride Carbon Dioxide BUN Creatinine Glucose POC Glucose 204 H Lactic Acid Calcium Phosphorus Magnesium Direct Bilirubin AST ALT Alkaline Phosphatase Lactate Dehydrogenase Troponin T C-Reactive Protein Total Protein Albumin Prealbumin Triglycerides Cholesterol LDL Cholesterol Direct HDL Cholesterol PTH Intact Urine pH Urine WBC (Auto) 68.0 H Urine Creatinine 106.1 H Urine Total Protein Fluid Total Protein Vancomycin Trough Rheumatoid Factor Complement C4 Miscellaneous Test Crossmatch 09/07/16 09/07/16 09/07/16 04:50 06:19 06:39 WBC RBC Hgb Hct MCV MCH MCHC RDW Plt Count Lymph % (Auto) [place] % (Auto) Lymph # [place] # Baso # Seg Neutrophils % Seg Neuts % (Manual) Lymphocytes % (Manual) Monocytes % (Manual) Eosinophils % (Manual) Basophils % (Manual) Nucleated RBC % Seg Neutrophils # Seg Neutrophils # Man Lymphocytes # (Manual) Monocytes # (Manual) Eosinophils # (Manual) Basophils # (Manual) PT INR Fibrinogen dRVVT Confirm Interp Factor V Activity POC ABG pH 7.457 H POC ABG pCO2 32.1 L POC ABG pO2 76 L ABG pO2 ABG HCO3 ABG Base Excess ABG Hemoglobin Oxyhemoglobin Sodium 132 L Potassium Chloride 94.7 L Carbon Dioxide BUN 53 H Creatinine 2.9 H Glucose 151 H POC Glucose 149 H Lactic Acid Calcium Phosphorus Magnesium Direct Bilirubin AST ALT Alkaline Phosphatase Lactate Dehydrogenase Troponin T C-Reactive Protein Total Protein Albumin Prealbumin Triglycerides Cholesterol LDL Cholesterol Direct HDL Cholesterol PTH Intact Urine pH Urine WBC (Auto) Urine Creatinine Urine Total Protein Fluid Total Protein Vancomycin Trough Rheumatoid Factor Complement C4 Miscellaneous Test Crossmatch 09/07/16 09/07/16 09/07/16 09:20 11:43 11:43 WBC 19.4 H RBC Hgb 8.3 L Hct 26.4 L D MCV 72 L D MCH 22 L MCHC RDW 17.9 H Plt Count Lymph % (Auto) 8.5 L [place] % (Auto) Lymph # [place] # 1.0 H Baso # Seg Neutrophils % 85.8 H Seg Neuts % (Manual) Lymphocytes % (Manual) Monocytes % (Manual) Eosinophils % (Manual) Basophils % (Manual) Nucleated RBC % Seg Neutrophils # 16.6 H Seg Neutrophils # Man Lymphocytes # (Manual) Monocytes # (Manual) Eosinophils # (Manual) Basophils # (Manual) PT INR Fibrinogen dRVVT Confirm Interp Factor V Activity POC ABG pH POC ABG pCO2 POC ABG pO2 ABG pO2 ABG HCO3 ABG Base Excess ABG Hemoglobin Oxyhemoglobin Sodium 134 L Potassium Chloride 97.2 L Carbon Dioxide 20 L BUN 58 H Creatinine 2.9 H Glucose 147 H POC Glucose Lactic Acid Calcium Phosphorus 2.40 L Magnesium 2.40 H Direct Bilirubin AST ALT Alkaline Phosphatase Lactate Dehydrogenase Troponin T C-Reactive Protein Total Protein 5.8 L Albumin 2.2 L Prealbumin Triglycerides Cholesterol LDL Cholesterol Direct HDL Cholesterol PTH Intact Urine pH Urine WBC (Auto) Urine Creatinine Urine Total Protein Fluid Total Protein Vancomycin Trough Rheumatoid Factor Complement C4 58 H Miscellaneous Test Crossmatch 09/07/16 09/07/16 09/07/16 11:50 16:00 17:31 WBC RBC Hgb Hct MCV MCH MCHC RDW Plt Count Lymph % (Auto) [place] % (Auto) Lymph # [place] # Baso # Seg Neutrophils % Seg Neuts % (Manual) Lymphocytes % (Manual) Monocytes % (Manual) Eosinophils % (Manual) Basophils % (Manual) Nucleated RBC % Seg Neutrophils # Seg Neutrophils # Man Lymphocytes # (Manual) Monocytes # (Manual) Eosinophils # (Manual) Basophils # (Manual) PT INR Fibrinogen dRVVT Confirm Interp Factor V Activity POC ABG pH POC ABG pCO2 POC ABG pO2 158 H ABG pO2 ABG HCO3 ABG Base Excess ABG Hemoglobin Oxyhemoglobin Sodium Potassium Chloride Carbon Dioxide BUN Creatinine Glucose POC Glucose 175 H Lactic Acid Calcium Phosphorus Magnesium Direct Bilirubin AST ALT Alkaline Phosphatase Lactate Dehydrogenase Troponin T C-Reactive Protein Total Protein Albumin Prealbumin Triglycerides Cholesterol LDL Cholesterol Direct HDL Cholesterol PTH Intact Urine pH Urine WBC (Auto) Urine Creatinine 66.3 H Urine Total Protein Fluid Total Protein Vancomycin Trough Rheumatoid Factor Complement C4 Miscellaneous Test Crossmatch 09/07/16 09/08/16 09/08/16 23:50 05:46 06:18 WBC 17.8 H RBC 3.58 L Hgb 8.1 L Hct 25.5 L MCV 71 L MCH 23 L MCHC RDW 18.4 H Plt Count Lymph % (Auto) [place] % (Auto) Lymph # [place] # Baso # Seg Neutrophils % Seg Neuts % (Manual) 92.0 H Lymphocytes % (Manual) 6.0 L Monocytes % (Manual) Eosinophils % (Manual) Basophils % (Manual) Nucleated RBC % Seg Neutrophils # Seg Neutrophils # Man 16.4 H Lymphocytes # (Manual) 1.1 L Monocytes # (Manual) Eosinophils # (Manual) Basophils # (Manual) PT INR Fibrinogen dRVVT Confirm Interp Factor V Activity POC ABG pH POC ABG pCO2 34.3 L POC ABG pO2 71 L ABG pO2 ABG HCO3 ABG Base Excess ABG Hemoglobin Oxyhemoglobin Sodium Potassium Chloride Carbon Dioxide BUN Creatinine Glucose POC Glucose 216 H Lactic Acid Calcium Phosphorus Magnesium Direct Bilirubin AST ALT Alkaline Phosphatase Lactate Dehydrogenase Troponin T C-Reactive Protein Total Protein Albumin Prealbumin Triglycerides Cholesterol LDL Cholesterol Direct HDL Cholesterol PTH Intact Urine pH Urine WBC (Auto) Urine Creatinine Urine Total Protein Fluid Total Protein Vancomycin Trough Rheumatoid Factor Complement C4 Miscellaneous Test Crossmatch 09/08/16 09/08/16 09/08/16 06:18 06:51 10:55 WBC RBC Hgb Hct MCV MCH MCHC RDW Plt Count Lymph % (Auto) [place] % (Auto) Lymph # [place] # Baso # Seg Neutrophils % Seg Neuts % (Manual) Lymphocytes % (Manual) Monocytes % (Manual) Eosinophils % (Manual) Basophils % (Manual) Nucleated RBC % Seg Neutrophils # Seg Neutrophils # Man Lymphocytes # (Manual) Monocytes # (Manual) Eosinophils # (Manual) Basophils # (Manual) PT INR Fibrinogen dRVVT Confirm Interp Factor V Activity POC ABG pH POC ABG pCO2 POC ABG pO2 ABG pO2 ABG HCO3 ABG Base Excess ABG Hemoglobin Oxyhemoglobin Sodium 133 L Potassium Chloride 96.9 L Carbon Dioxide 20 L BUN 63 H Creatinine 2.7 H Glucose 195 H POC Glucose 204 H 169 H Lactic Acid Calcium Phosphorus Magnesium Direct Bilirubin AST ALT Alkaline Phosphatase Lactate Dehydrogenase Troponin T C-Reactive Protein Total Protein Albumin Prealbumin Triglycerides Cholesterol LDL Cholesterol Direct HDL Cholesterol PTH Intact Urine pH Urine WBC (Auto) Urine Creatinine Urine Total Protein Fluid Total Protein Vancomycin Trough Rheumatoid Factor Complement C4 Miscellaneous Test Crossmatch 09/08/16 09/08/16 09/08/16 11:48 11:48 11:48 WBC RBC Hgb Hct MCV MCH MCHC RDW Plt Count Lymph % (Auto) [place] % (Auto) Lymph # [place] # Baso # Seg Neutrophils % Seg Neuts % (Manual) Lymphocytes % (Manual) Monocytes % (Manual) Eosinophils % (Manual) Basophils % (Manual) Nucleated RBC % Seg Neutrophils # Seg Neutrophils # Man Lymphocytes # (Manual) Monocytes # (Manual) Eosinophils # (Manual) Basophils # (Manual) PT INR Fibrinogen 750 H dRVVT Confirm Interp Factor V Activity POC ABG pH POC ABG pCO2 POC ABG pO2 ABG pO2 ABG HCO3 ABG Base Excess ABG Hemoglobin Oxyhemoglobin Sodium Potassium Chloride Carbon Dioxide BUN Creatinine Glucose POC Glucose Lactic Acid Calcium Phosphorus Magnesium Direct Bilirubin AST ALT Alkaline Phosphatase Lactate Dehydrogenase Troponin T C-Reactive Protein 15.70 H Total Protein Albumin Prealbumin Triglycerides Cholesterol LDL Cholesterol Direct HDL Cholesterol PTH Intact Urine pH Urine WBC (Auto) Urine Creatinine Urine Total Protein Fluid Total Protein Vancomycin Trough Rheumatoid Factor 24 H Complement C4 Miscellaneous Test Crossmatch 09/08/16 09/08/16 09/09/16 15:35 18:25 00:24 WBC RBC Hgb Hct MCV MCH MCHC RDW Plt Count Lymph % (Auto) [place] % (Auto) Lymph # [place] # Baso # Seg Neutrophils % Seg Neuts % (Manual) Lymphocytes % (Manual) Monocytes % (Manual) Eosinophils % (Manual) Basophils % (Manual) Nucleated RBC % Seg Neutrophils # Seg Neutrophils # Man Lymphocytes # (Manual) Monocytes # (Manual) Eosinophils # (Manual) Basophils # (Manual) PT INR Fibrinogen dRVVT Confirm Interp Factor V Activity 182 H POC ABG pH POC ABG pCO2 POC ABG pO2 ABG pO2 ABG HCO3 ABG Base Excess ABG Hemoglobin Oxyhemoglobin Sodium Potassium Chloride Carbon Dioxide BUN Creatinine Glucose POC Glucose 184 H 216 H Lactic Acid Calcium Phosphorus Magnesium Direct Bilirubin AST ALT Alkaline Phosphatase Lactate Dehydrogenase Troponin T C-Reactive Protein Total Protein Albumin Prealbumin Triglycerides Cholesterol LDL Cholesterol Direct HDL Cholesterol PTH Intact Urine pH Urine WBC (Auto) Urine Creatinine Urine Total Protein Fluid Total Protein Vancomycin Trough Rheumatoid Factor Complement C4 Miscellaneous Test Crossmatch 09/09/16 09/09/16 09/09/16 03:00 03:00 04:04 WBC 27.9 H RBC Hgb 8.7 L Hct 28.1 L MCV 72 L MCH 22 L MCHC RDW 18.4 H Plt Count 485 H Lymph % (Auto) [place] % (Auto) Lymph # [place] # Baso # Seg Neutrophils % Seg Neuts % (Manual) 77.0 H Lymphocytes % (Manual) 9.0 L Monocytes % (Manual) Eosinophils % (Manual) Basophils % (Manual) Nucleated RBC % Seg Neutrophils # Seg Neutrophils # Man 21.5 H Lymphocytes # (Manual) Monocytes # (Manual) 2.0 H Eosinophils # (Manual) Basophils # (Manual) PT INR Fibrinogen dRVVT Confirm Interp Factor V Activity POC ABG pH POC ABG pCO2 POC ABG pO2 121 H ABG pO2 ABG HCO3 ABG Base Excess ABG Hemoglobin Oxyhemoglobin Sodium 135 L Potassium Chloride 96.3 L Carbon Dioxide 21 L BUN 83 H Creatinine 3.0 H Glucose 135 H POC Glucose Lactic Acid Calcium Phosphorus Magnesium Direct Bilirubin AST ALT Alkaline Phosphatase Lactate Dehydrogenase Troponin T C-Reactive Protein Total Protein Albumin Prealbumin Triglycerides Cholesterol LDL Cholesterol Direct HDL Cholesterol PTH Intact Urine pH Urine WBC (Auto) Urine Creatinine Urine Total Protein Fluid Total Protein Vancomycin Trough Rheumatoid Factor Complement C4 Miscellaneous Test Crossmatch 09/09/16 09/09/16 09/09/16 05:41 11:55 14:13 WBC RBC Hgb Hct MCV MCH MCHC RDW Plt Count Lymph % (Auto) [place] % (Auto) Lymph # [place] # Baso # Seg Neutrophils % Seg Neuts % (Manual) Lymphocytes % (Manual) Monocytes % (Manual) Eosinophils % (Manual) Basophils % (Manual) Nucleated RBC % Seg Neutrophils # Seg Neutrophils # Man Lymphocytes # (Manual) Monocytes # (Manual) Eosinophils # (Manual) Basophils # (Manual) PT INR Fibrinogen dRVVT Confirm Interp Factor V Activity POC ABG pH POC ABG pCO2 POC ABG pO2 ABG pO2 ABG HCO3 ABG Base Excess ABG Hemoglobin Oxyhemoglobin Sodium Potassium Chloride Carbon Dioxide BUN Creatinine Glucose POC Glucose 155 H 186 H Lactic Acid Calcium Phosphorus Magnesium Direct Bilirubin AST ALT Alkaline Phosphatase Lactate Dehydrogenase Troponin T C-Reactive Protein Total Protein Albumin Prealbumin Triglycerides Cholesterol LDL Cholesterol Direct HDL Cholesterol PTH Intact Urine pH Urine WBC (Auto) 25.0 H Urine Creatinine Urine Total Protein Fluid Total Protein Vancomycin Trough Rheumatoid Factor Complement C4 Miscellaneous Test Crossmatch 09/09/16 09/09/16 09/10/16 17:33 23:13 05:09 WBC RBC Hgb Hct MCV MCH MCHC RDW Plt Count Lymph % (Auto) [place] % (Auto) Lymph # [place] # Baso # Seg Neutrophils % Seg Neuts % (Manual) Lymphocytes % (Manual) Monocytes % (Manual) Eosinophils % (Manual) Basophils % (Manual) Nucleated RBC % Seg Neutrophils # Seg Neutrophils # Man Lymphocytes # (Manual) Monocytes # (Manual) Eosinophils # (Manual) Basophils # (Manual) PT INR Fibrinogen dRVVT Confirm Interp Factor V Activity POC ABG pH POC ABG pCO2 POC ABG pO2 74 L ABG pO2 ABG HCO3 ABG Base Excess ABG Hemoglobin Oxyhemoglobin Sodium Potassium Chloride Carbon Dioxide BUN Creatinine Glucose POC Glucose 211 H 215 H Lactic Acid Calcium Phosphorus Magnesium Direct Bilirubin AST ALT Alkaline Phosphatase Lactate Dehydrogenase Troponin T C-Reactive Protein Total Protein Albumin Prealbumin Triglycerides Cholesterol LDL Cholesterol Direct HDL Cholesterol PTH Intact Urine pH Urine WBC (Auto) Urine Creatinine Urine Total Protein Fluid Total Protein Vancomycin Trough Rheumatoid Factor Complement C4 Miscellaneous Test Crossmatch 09/10/16 09/10/16 09/10/16 05:17 05:17 11:31 WBC 15.8 H RBC 3.25 L Hgb 7.3 L Hct 22.9 L MCV 71 L MCH 23 L MCHC RDW 18.4 H Plt Count Lymph % (Auto) [place] % (Auto) Lymph # [place] # Baso # Seg Neutrophils % Seg Neuts % (Manual) 91.0 H Lymphocytes % (Manual) 4.0 L Monocytes % (Manual) Eosinophils % (Manual) Basophils % (Manual) Nucleated RBC % Seg Neutrophils # Seg Neutrophils # Man 14.4 H Lymphocytes # (Manual) 0.6 L Monocytes # (Manual) Eosinophils # (Manual) Basophils # (Manual) PT INR Fibrinogen dRVVT Confirm Interp Factor V Activity POC ABG pH POC ABG pCO2 POC ABG pO2 ABG pO2 ABG HCO3 ABG Base Excess ABG Hemoglobin Oxyhemoglobin Sodium Potassium Chloride Carbon Dioxide 21 L BUN 93 H Creatinine 2.9 H Glucose 146 H POC Glucose 188 H Lactic Acid Calcium 8.1 L Phosphorus Magnesium Direct Bilirubin AST ALT Alkaline Phosphatase Lactate Dehydrogenase Troponin T C-Reactive Protein Total Protein Albumin Prealbumin Triglycerides Cholesterol LDL Cholesterol Direct HDL Cholesterol PTH Intact Urine pH Urine WBC (Auto) Urine Creatinine Urine Total Protein Fluid Total Protein Vancomycin Trough Rheumatoid Factor Complement C4 Miscellaneous Test Crossmatch 09/10/16 09/10/16 09/10/16 13:17 17:20 23:32 WBC RBC Hgb Hct MCV MCH MCHC RDW Plt Count Lymph % (Auto) [place] % (Auto) Lymph # [place] # Baso # Seg Neutrophils % Seg Neuts % (Manual) Lymphocytes % (Manual) Monocytes % (Manual) Eosinophils % (Manual) Basophils % (Manual) Nucleated RBC % Seg Neutrophils # Seg Neutrophils # Man Lymphocytes # (Manual) Monocytes # (Manual) Eosinophils # (Manual) Basophils # (Manual) PT INR Fibrinogen dRVVT Confirm Interp Factor V Activity POC ABG pH POC ABG pCO2 POC ABG pO2 ABG pO2 ABG HCO3 ABG Base Excess ABG Hemoglobin Oxyhemoglobin Sodium Potassium Chloride Carbon Dioxide BUN Creatinine Glucose POC Glucose 199 H 186 H Lactic Acid Calcium Phosphorus Magnesium Direct Bilirubin AST ALT Alkaline Phosphatase Lactate Dehydrogenase Troponin T C-Reactive Protein Total Protein Albumin Prealbumin Triglycerides Cholesterol LDL Cholesterol Direct HDL Cholesterol PTH Intact Urine pH Urine WBC (Auto) Urine Creatinine Urine Total Protein Fluid Total Protein Vancomycin Trough Rheumatoid Factor Complement C4 Miscellaneous Test Crossmatch See Detail 09/11/16 09/11/16 09/11/16 05:10 05:10 05:17 WBC 28.4 H RBC Hgb 9.2 L Hct 29.3 L D MCV 73 L MCH 23 L MCHC RDW 18.9 H Plt Count 452 H Lymph % (Auto) [place] % (Auto) Lymph # [place] # Baso # Seg Neutrophils % Seg Neuts % (Manual) 89.5 H Lymphocytes % (Manual) 2.0 L Monocytes % (Manual) Eosinophils % (Manual) Basophils % (Manual) Nucleated RBC % Seg Neutrophils # Seg Neutrophils # Man 25.4 H Lymphocytes # (Manual) 0.6 L Monocytes # (Manual) 1.3 H Eosinophils # (Manual) Basophils # (Manual) PT INR Fibrinogen dRVVT Confirm Interp Factor V Activity POC ABG pH POC ABG pCO2 POC ABG pO2 ABG pO2 ABG HCO3 ABG Base Excess ABG Hemoglobin Oxyhemoglobin Sodium 136 L Potassium Chloride Carbon Dioxide 18 L BUN 107 H Creatinine 2.6 H Glucose 187 H POC Glucose 230 H Lactic Acid Calcium 8.3 L Phosphorus Magnesium Direct Bilirubin AST ALT Alkaline Phosphatase Lactate Dehydrogenase Troponin T C-Reactive Protein Total Protein Albumin Prealbumin Triglycerides Cholesterol LDL Cholesterol Direct HDL Cholesterol PTH Intact Urine pH Urine WBC (Auto) Urine Creatinine Urine Total Protein Fluid Total Protein Vancomycin Trough Rheumatoid Factor Complement C4 Miscellaneous Test Crossmatch 09/11/16 09/11/16 09/11/16 05:55 12:02 17:32 WBC RBC Hgb Hct MCV MCH MCHC RDW Plt Count Lymph % (Auto) [place] % (Auto) Lymph # [place] # Baso # Seg Neutrophils % Seg Neuts % (Manual) Lymphocytes % (Manual) Monocytes % (Manual) Eosinophils % (Manual) Basophils % (Manual) Nucleated RBC % Seg Neutrophils # Seg Neutrophils # Man Lymphocytes # (Manual) Monocytes # (Manual) Eosinophils # (Manual) Basophils # (Manual) PT INR Fibrinogen dRVVT Confirm Interp Factor V Activity POC ABG pH POC ABG pCO2 33.8 L POC ABG pO2 ABG pO2 ABG HCO3 ABG Base Excess ABG Hemoglobin Oxyhemoglobin Sodium Potassium Chloride Carbon Dioxide BUN Creatinine Glucose POC Glucose 191 H 239 H Lactic Acid Calcium Phosphorus Magnesium Direct Bilirubin AST ALT Alkaline Phosphatase Lactate Dehydrogenase Troponin T C-Reactive Protein Total Protein Albumin Prealbumin Triglycerides Cholesterol LDL Cholesterol Direct HDL Cholesterol PTH Intact Urine pH Urine WBC (Auto) Urine Creatinine Urine Total Protein Fluid Total Protein Vancomycin Trough Rheumatoid Factor Complement C4 Miscellaneous Test Crossmatch 09/11/16 09/12/16 09/12/16 23:52 05:09 05:32 WBC RBC Hgb Hct MCV MCH MCHC RDW Plt Count Lymph % (Auto) [place] % (Auto) Lymph # [place] # Baso # Seg Neutrophils % Seg Neuts % (Manual) Lymphocytes % (Manual) Monocytes % (Manual) Eosinophils % (Manual) Basophils % (Manual) Nucleated RBC % Seg Neutrophils # Seg Neutrophils # Man Lymphocytes # (Manual) Monocytes # (Manual) Eosinophils # (Manual) Basophils # (Manual) PT INR Fibrinogen dRVVT Confirm Interp Factor V Activity POC ABG pH POC ABG pCO2 34.6 L POC ABG pO2 ABG pO2 ABG HCO3 ABG Base Excess ABG Hemoglobin Oxyhemoglobin Sodium Potassium Chloride Carbon Dioxide BUN Creatinine Glucose POC Glucose 265 H 184 H Lactic Acid Calcium Phosphorus Magnesium Direct Bilirubin AST ALT Alkaline Phosphatase Lactate Dehydrogenase Troponin T C-Reactive Protein Total Protein Albumin Prealbumin Triglycerides Cholesterol LDL Cholesterol Direct HDL Cholesterol PTH Intact Urine pH Urine WBC (Auto) Urine Creatinine Urine Total Protein Fluid Total Protein Vancomycin Trough Rheumatoid Factor Complement C4 Miscellaneous Test Crossmatch 09/12/16 09/12/16 09/12/16 06:45 06:45 07:22 WBC 31.7 H RBC 3.54 L Hgb 8.3 L Hct 25.9 L MCV 73 L MCH 23 L MCHC RDW 18.9 H Plt Count Lymph % (Auto) [place] % (Auto) Lymph # [place] # Baso # Seg Neutrophils % Seg Neuts % (Manual) 88.5 H Lymphocytes % (Manual) 4.5 L Monocytes % (Manual) Eosinophils % (Manual) Basophils % (Manual) Nucleated RBC % Seg Neutrophils # Seg Neutrophils # Man 28.1 H Lymphocytes # (Manual) Monocytes # (Manual) 1.0 H Eosinophils # (Manual) Basophils # (Manual) PT INR Fibrinogen dRVVT Confirm Interp Factor V Activity POC ABG pH POC ABG pCO2 POC ABG pO2 ABG pO2 ABG HCO3 ABG Base Excess ABG Hemoglobin Oxyhemoglobin Sodium Potassium Chloride Carbon Dioxide 20 L BUN 115 H Creatinine 2.7 H Glucose 165 H POC Glucose Lactic Acid Calcium 8.0 L Phosphorus Magnesium Direct Bilirubin AST ALT Alkaline Phosphatase Lactate Dehydrogenase Troponin T C-Reactive Protein Total Protein Albumin Prealbumin Triglycerides 217 H Cholesterol LDL Cholesterol Direct HDL Cholesterol PTH Intact Urine pH Urine WBC (Auto) Urine Creatinine Urine Total Protein Fluid Total Protein Vancomycin Trough Rheumatoid Factor Complement C4 Miscellaneous Test Crossmatch 09/12/16 09/12/16 09/12/16 07:22 09:59 12:21 WBC RBC Hgb Hct MCV MCH MCHC RDW Plt Count Lymph % (Auto) [place] % (Auto) Lymph # [place] # Baso # Seg Neutrophils % Seg Neuts % (Manual) Lymphocytes % (Manual) Monocytes % (Manual) Eosinophils % (Manual) Basophils % (Manual) Nucleated RBC % Seg Neutrophils # Seg Neutrophils # Man Lymphocytes # (Manual) Monocytes # (Manual) Eosinophils # (Manual) Basophils # (Manual) PT INR Fibrinogen dRVVT Confirm Interp Positive H Factor V Activity POC ABG pH POC ABG pCO2 POC ABG pO2 ABG pO2 ABG HCO3 ABG Base Excess ABG Hemoglobin Oxyhemoglobin Sodium Potassium Chloride Carbon Dioxide BUN Creatinine Glucose POC Glucose 224 H Lactic Acid Calcium Phosphorus Magnesium Direct Bilirubin AST ALT Alkaline Phosphatase Lactate Dehydrogenase Troponin T C-Reactive Protein 1.70 H Total Protein Albumin Prealbumin Triglycerides Cholesterol LDL Cholesterol Direct HDL Cholesterol PTH Intact Urine pH Urine WBC (Auto) Urine Creatinine Urine Total Protein Fluid Total Protein Vancomycin Trough Rheumatoid Factor Complement C4 Miscellaneous Test Crossmatch 09/12/16 09/12/16 09/13/16 16:51 23:28 04:00 WBC 45.0 H* RBC Hgb 9.4 L Hct MCV 75 L MCH 23 L MCHC RDW 19.0 H Plt Count 470 H Lymph % (Auto) [place] % (Auto) Lymph # [place] # Baso # Seg Neutrophils % Seg Neuts % (Manual) 89.0 H Lymphocytes % (Manual) 5.0 L Monocytes % (Manual) Eosinophils % (Manual) Basophils % (Manual) Nucleated RBC % Seg Neutrophils # Seg Neutrophils # Man 40.1 H Lymphocytes # (Manual) Monocytes # (Manual) Eosinophils # (Manual) Basophils # (Manual) PT INR Fibrinogen dRVVT Confirm Interp Factor V Activity POC ABG pH POC ABG pCO2 POC ABG pO2 ABG pO2 ABG HCO3 ABG Base Excess ABG Hemoglobin Oxyhemoglobin Sodium Potassium Chloride Carbon Dioxide BUN Creatinine Glucose POC Glucose 169 H 150 H Lactic Acid Calcium Phosphorus Magnesium Direct Bilirubin AST ALT Alkaline Phosphatase Lactate Dehydrogenase Troponin T C-Reactive Protein Total Protein Albumin Prealbumin Triglycerides Cholesterol LDL Cholesterol Direct HDL Cholesterol PTH Intact Urine pH Urine WBC (Auto) Urine Creatinine Urine Total Protein Fluid Total Protein Vancomycin Trough Rheumatoid Factor Complement C4 Miscellaneous Test Crossmatch 09/13/16 09/13/16 09/13/16 04:00 11:26 17:31 WBC RBC Hgb Hct MCV MCH MCHC RDW Plt Count Lymph % (Auto) [place] % (Auto) Lymph # [place] # Baso # Seg Neutrophils % Seg Neuts % (Manual) Lymphocytes % (Manual) Monocytes % (Manual) Eosinophils % (Manual) Basophils % (Manual) Nucleated RBC % Seg Neutrophils # Seg Neutrophils # Man Lymphocytes # (Manual) Monocytes # (Manual) Eosinophils # (Manual) Basophils # (Manual) PT INR Fibrinogen dRVVT Confirm Interp Factor V Activity POC ABG pH POC ABG pCO2 POC ABG pO2 ABG pO2 ABG HCO3 ABG Base Excess ABG Hemoglobin Oxyhemoglobin Sodium Potassium Chloride Carbon Dioxide 20 L BUN 116 H Creatinine 3.0 H Glucose 172 H POC Glucose 140 H 183 H Lactic Acid Calcium Phosphorus Magnesium Direct Bilirubin AST ALT Alkaline Phosphatase Lactate Dehydrogenase Troponin T C-Reactive Protein Total Protein 6.2 L Albumin 2.9 L Prealbumin Triglycerides Cholesterol LDL Cholesterol Direct HDL Cholesterol PTH Intact Urine pH Urine WBC (Auto) Urine Creatinine Urine Total Protein Fluid Total Protein Vancomycin Trough Rheumatoid Factor Complement C4 Miscellaneous Test Crossmatch 09/13/16 09/14/16 09/14/16 23:23 04:06 04:07 WBC 29.4 H RBC Hgb 8.9 L Hct 27.3 L MCV 75 L MCH 24 L MCHC RDW 19.1 H Plt Count Lymph % (Auto) [place] % (Auto) Lymph # [place] # Baso # Seg Neutrophils % Seg Neuts % (Manual) 84.0 H Lymphocytes % (Manual) 6.0 L Monocytes % (Manual) 9.0 H Eosinophils % (Manual) Basophils % (Manual) Nucleated RBC % Seg Neutrophils # Seg Neutrophils # Man 24.7 H Lymphocytes # (Manual) Monocytes # (Manual) 2.6 H Eosinophils # (Manual) Basophils # (Manual) PT INR Fibrinogen dRVVT Confirm Interp Factor V Activity POC ABG pH 7.342 L POC ABG pCO2 POC ABG pO2 116 H ABG pO2 ABG HCO3 ABG Base Excess ABG Hemoglobin Oxyhemoglobin Sodium Potassium Chloride Carbon Dioxide BUN Creatinine Glucose POC Glucose 154 H Lactic Acid Calcium Phosphorus Magnesium Direct Bilirubin AST ALT Alkaline Phosphatase Lactate Dehydrogenase Troponin T C-Reactive Protein Total Protein Albumin Prealbumin Triglycerides Cholesterol LDL Cholesterol Direct HDL Cholesterol PTH Intact Urine pH Urine WBC (Auto) Urine Creatinine Urine Total Protein Fluid Total Protein Vancomycin Trough Rheumatoid Factor Complement C4 Miscellaneous Test Crossmatch 09/14/16 09/14/16 09/14/16 04:07 05:29 12:19 WBC RBC Hgb Hct MCV MCH MCHC RDW Plt Count Lymph % (Auto) [place] % (Auto) Lymph # [place] # Baso # Seg Neutrophils % Seg Neuts % (Manual) Lymphocytes % (Manual) Monocytes % (Manual) Eosinophils % (Manual) Basophils % (Manual) Nucleated RBC % Seg Neutrophils # Seg Neutrophils # Man Lymphocytes # (Manual) Monocytes # (Manual) Eosinophils # (Manual) Basophils # (Manual) PT INR Fibrinogen dRVVT Confirm Interp Factor V Activity POC ABG pH POC ABG pCO2 POC ABG pO2 ABG pO2 ABG HCO3 ABG Base Excess ABG Hemoglobin Oxyhemoglobin Sodium 136 L Potassium Chloride Carbon Dioxide 18 L BUN 121 H Creatinine 2.8 H Glucose 214 H POC Glucose 239 H 181 H Lactic Acid Calcium Phosphorus Magnesium Direct Bilirubin AST ALT Alkaline Phosphatase Lactate Dehydrogenase Troponin T C-Reactive Protein Total Protein Albumin Prealbumin Triglycerides Cholesterol LDL Cholesterol Direct HDL Cholesterol PTH Intact Urine pH Urine WBC (Auto) Urine Creatinine Urine Total Protein Fluid Total Protein Vancomycin Trough Rheumatoid Factor Complement C4 Miscellaneous Test Crossmatch 09/14/16 09/14/16 09/15/16 18:12 23:37 05:00 WBC 26.1 H RBC 3.05 L Hgb 7.2 L Hct 22.9 L MCV 75 L MCH 24 L MCHC RDW 19.0 H Plt Count Lymph % (Auto) [place] % (Auto) Lymph # [place] # Baso # Seg Neutrophils % Seg Neuts % (Manual) Lymphocytes % (Manual) Monocytes % (Manual) Eosinophils % (Manual) Basophils % (Manual) Nucleated RBC % Seg Neutrophils # Seg Neutrophils # Man Lymphocytes # (Manual) Monocytes # (Manual) Eosinophils # (Manual) Basophils # (Manual) PT INR Fibrinogen dRVVT Confirm Interp Factor V Activity POC ABG pH POC ABG pCO2 POC ABG pO2 ABG pO2 ABG HCO3 ABG Base Excess ABG Hemoglobin Oxyhemoglobin Sodium Potassium Chloride Carbon Dioxide BUN Creatinine Glucose POC Glucose 266 H 154 H Lactic Acid Calcium Phosphorus Magnesium Direct Bilirubin AST ALT Alkaline Phosphatase Lactate Dehydrogenase Troponin T C-Reactive Protein Total Protein Albumin Prealbumin Triglycerides Cholesterol LDL Cholesterol Direct HDL Cholesterol PTH Intact Urine pH Urine WBC (Auto) Urine Creatinine Urine Total Protein Fluid Total Protein Vancomycin Trough Rheumatoid Factor Complement C4 Miscellaneous Test Crossmatch 09/15/16 09/15/16 09/15/16 05:00 05:17 12:45 WBC RBC Hgb Hct MCV MCH MCHC RDW Plt Count Lymph % (Auto) [place] % (Auto) Lymph # [place] # Baso # Seg Neutrophils % Seg Neuts % (Manual) Lymphocytes % (Manual) Monocytes % (Manual) Eosinophils % (Manual) Basophils % (Manual) Nucleated RBC % Seg Neutrophils # Seg Neutrophils # Man Lymphocytes # (Manual) Monocytes # (Manual) Eosinophils # (Manual) Basophils # (Manual) PT INR Fibrinogen dRVVT Confirm Interp Factor V Activity POC ABG pH POC ABG pCO2 POC ABG pO2 ABG pO2 ABG HCO3 ABG Base Excess ABG Hemoglobin Oxyhemoglobin Sodium Potassium 5.2 H Chloride Carbon Dioxide 18 L BUN 139 H Creatinine 3.7 H Glucose 227 H POC Glucose 226 H 244 H Lactic Acid Calcium 8.3 L Phosphorus Magnesium Direct Bilirubin AST ALT Alkaline Phosphatase Lactate Dehydrogenase Troponin T C-Reactive Protein Total Protein Albumin Prealbumin Triglycerides Cholesterol LDL Cholesterol Direct HDL Cholesterol PTH Intact Urine pH Urine WBC (Auto) Urine Creatinine Urine Total Protein Fluid Total Protein Vancomycin Trough Rheumatoid Factor Complement C4 Miscellaneous Test Crossmatch 09/15/16 09/15/16 09/15/16 14:32 17:33 23:35 WBC RBC Hgb Hct MCV MCH MCHC RDW Plt Count Lymph % (Auto) [place] % (Auto) Lymph # [place] # Baso # Seg Neutrophils % Seg Neuts % (Manual) Lymphocytes % (Manual) Monocytes % (Manual) Eosinophils % (Manual) Basophils % (Manual) Nucleated RBC % Seg Neutrophils # Seg Neutrophils # Man Lymphocytes # (Manual) Monocytes # (Manual) Eosinophils # (Manual) Basophils # (Manual) PT INR Fibrinogen dRVVT Confirm Interp Factor V Activity POC ABG pH POC ABG pCO2 27.7 L POC ABG pO2 120 H ABG pO2 ABG HCO3 ABG Base Excess ABG Hemoglobin Oxyhemoglobin Sodium Potassium Chloride Carbon Dioxide BUN Creatinine Glucose POC Glucose 232 H 167 H Lactic Acid Calcium Phosphorus Magnesium Direct Bilirubin AST ALT Alkaline Phosphatase Lactate Dehydrogenase Troponin T C-Reactive Protein Total Protein Albumin Prealbumin Triglycerides Cholesterol LDL Cholesterol Direct HDL Cholesterol PTH Intact Urine pH Urine WBC (Auto) Urine Creatinine Urine Total Protein Fluid Total Protein Vancomycin Trough Rheumatoid Factor Complement C4 Miscellaneous Test Crossmatch 09/16/16 09/16/16 09/16/16 03:58 10:27 10:27 WBC 19.0 H RBC 2.77 L Hgb 6.5 L Hct 20.9 L MCV 76 L MCH 23 L MCHC RDW 19.3 H Plt Count Lymph % (Auto) 11.0 L [place] % (Auto) Lymph # [place] # 1.1 H Baso # Seg Neutrophils % 82.5 H Seg Neuts % (Manual) Lymphocytes % (Manual) Monocytes % (Manual) Eosinophils % (Manual) Basophils % (Manual) Nucleated RBC % Seg Neutrophils # 15.7 H Seg Neutrophils # Man Lymphocytes # (Manual) Monocytes # (Manual) Eosinophils # (Manual) Basophils # (Manual) PT INR Fibrinogen dRVVT Confirm Interp Factor V Activity POC ABG pH POC ABG pCO2 POC ABG pO2 ABG pO2 ABG HCO3 ABG Base Excess ABG Hemoglobin Oxyhemoglobin Sodium Potassium Chloride 109.3 H Carbon Dioxide 18 L BUN 139 H Creatinine 4.1 H Glucose 144 H POC Glucose 146 H Lactic Acid Calcium 8.1 L Phosphorus Magnesium Direct Bilirubin AST ALT Alkaline Phosphatase Lactate Dehydrogenase Troponin T C-Reactive Protein Total Protein Albumin Prealbumin Triglycerides Cholesterol LDL Cholesterol Direct HDL Cholesterol PTH Intact Urine pH Urine WBC (Auto) Urine Creatinine Urine Total Protein Fluid Total Protein Vancomycin Trough Rheumatoid Factor Complement C4 Miscellaneous Test Crossmatch 09/16/16 09/16/16 09/16/16 12:04 12:10 13:55 WBC RBC Hgb Hct MCV MCH MCHC RDW Plt Count Lymph % (Auto) [place] % (Auto) Lymph # [place] # Baso # Seg Neutrophils % Seg Neuts % (Manual) Lymphocytes % (Manual) Monocytes % (Manual) Eosinophils % (Manual) Basophils % (Manual) Nucleated RBC % Seg Neutrophils # Seg Neutrophils # Man Lymphocytes # (Manual) Monocytes # (Manual) Eosinophils # (Manual) Basophils # (Manual) PT INR Fibrinogen dRVVT Confirm Interp Factor V Activity POC ABG pH POC ABG pCO2 32.9 L POC ABG pO2 ABG pO2 ABG HCO3 ABG Base Excess ABG Hemoglobin Oxyhemoglobin Sodium Potassium Chloride Carbon Dioxide BUN Creatinine Glucose POC Glucose 185 H Lactic Acid Calcium Phosphorus Magnesium Direct Bilirubin AST ALT Alkaline Phosphatase Lactate Dehydrogenase Troponin T C-Reactive Protein Total Protein Albumin Prealbumin Triglycerides Cholesterol LDL Cholesterol Direct HDL Cholesterol PTH Intact Urine pH Urine WBC (Auto) Urine Creatinine Urine Total Protein Fluid Total Protein Vancomycin Trough Rheumatoid Factor Complement C4 Miscellaneous Test Crossmatch See Detail 09/16/16 09/16/16 09/16/16 17:55 19:19 23:48 WBC RBC Hgb Hct MCV MCH MCHC RDW Plt Count Lymph % (Auto) [place] % (Auto) Lymph # [place] # Baso # Seg Neutrophils % Seg Neuts % (Manual) Lymphocytes % (Manual) Monocytes % (Manual) Eosinophils % (Manual) Basophils % (Manual) Nucleated RBC % Seg Neutrophils # Seg Neutrophils # Man Lymphocytes # (Manual) Monocytes # (Manual) Eosinophils # (Manual) Basophils # (Manual) PT INR Fibrinogen dRVVT Confirm Interp Factor V Activity POC ABG pH POC ABG pCO2 POC ABG pO2 ABG pO2 ABG HCO3 ABG Base Excess ABG Hemoglobin Oxyhemoglobin Sodium Potassium Chloride Carbon Dioxide BUN Creatinine Glucose POC Glucose 222 H 107 H Lactic Acid Calcium Phosphorus Magnesium Direct Bilirubin AST ALT Alkaline Phosphatase Lactate Dehydrogenase Troponin T C-Reactive Protein Total Protein Albumin Prealbumin Triglycerides Cholesterol LDL Cholesterol Direct HDL Cholesterol PTH Intact Urine pH Urine WBC (Auto) Urine Creatinine 47.4 H Urine Total Protein 16 H Fluid Total Protein Vancomycin Trough Rheumatoid Factor Complement C4 Miscellaneous Test Crossmatch 09/17/16 09/17/16 09/17/16 03:45 03:45 04:55 WBC 19.6 H RBC 3.41 L Hgb 8.5 L Hct 26.7 L MCV 78 L MCH 25 L MCHC RDW 19.9 H Plt Count Lymph % (Auto) 9.3 L [place] % (Auto) Lymph # [place] # 1.2 H Baso # Seg Neutrophils % 83.9 H Seg Neuts % (Manual) Lymphocytes % (Manual) Monocytes % (Manual) Eosinophils % (Manual) Basophils % (Manual) Nucleated RBC % Seg Neutrophils # 16.4 H Seg Neutrophils # Man Lymphocytes # (Manual) Monocytes # (Manual) Eosinophils # (Manual) Basophils # (Manual) PT INR Fibrinogen dRVVT Confirm Interp Factor V Activity POC ABG pH POC ABG pCO2 POC ABG pO2 ABG pO2 ABG HCO3 ABG Base Excess ABG Hemoglobin Oxyhemoglobin Sodium 146 H Potassium 5.1 H Chloride 110.9 H Carbon Dioxide 16 L BUN 146 H Creatinine 4.0 H Glucose 108 H POC Glucose 133 H Lactic Acid Calcium Phosphorus Magnesium 3.00 H Direct Bilirubin AST ALT Alkaline Phosphatase Lactate Dehydrogenase Troponin T C-Reactive Protein Total Protein Albumin Prealbumin Triglycerides Cholesterol LDL Cholesterol Direct HDL Cholesterol PTH Intact Urine pH Urine WBC (Auto) Urine Creatinine Urine Total Protein Fluid Total Protein Vancomycin Trough Rheumatoid Factor Complement C4 Miscellaneous Test Crossmatch 09/17/16 09/17/16 09/17/16 11:15 17:33 23:47 WBC RBC Hgb Hct MCV MCH MCHC RDW Plt Count Lymph % (Auto) [place] % (Auto) Lymph # [place] # Baso # Seg Neutrophils % Seg Neuts % (Manual) Lymphocytes % (Manual) Monocytes % (Manual) Eosinophils % (Manual) Basophils % (Manual) Nucleated RBC % Seg Neutrophils # Seg Neutrophils # Man Lymphocytes # (Manual) Monocytes # (Manual) Eosinophils # (Manual) Basophils # (Manual) PT INR Fibrinogen dRVVT Confirm Interp Factor V Activity POC ABG pH POC ABG pCO2 POC ABG pO2 ABG pO2 ABG HCO3 ABG Base Excess ABG Hemoglobin Oxyhemoglobin Sodium Potassium Chloride Carbon Dioxide BUN Creatinine Glucose POC Glucose 176 H 246 H 148 H Lactic Acid Calcium Phosphorus Magnesium Direct Bilirubin AST ALT Alkaline Phosphatase Lactate Dehydrogenase Troponin T C-Reactive Protein Total Protein Albumin Prealbumin Triglycerides Cholesterol LDL Cholesterol Direct HDL Cholesterol PTH Intact Urine pH Urine WBC (Auto) Urine Creatinine Urine Total Protein Fluid Total Protein Vancomycin Trough Rheumatoid Factor Complement C4 Miscellaneous Test Crossmatch 09/18/16 09/18/16 09/18/16 05:33 08:31 08:31 WBC 18.0 H RBC 3.17 L Hgb 9.0 L Hct 25.7 L MCV MCH MCHC 35 H RDW 20.4 H Plt Count Lymph % (Auto) [place] % (Auto) Lymph # [place] # Baso # Seg Neutrophils % Seg Neuts % (Manual) Lymphocytes % (Manual) Monocytes % (Manual) Eosinophils % (Manual) Basophils % (Manual) Nucleated RBC % Seg Neutrophils # Seg Neutrophils # Man Lymphocytes # (Manual) Monocytes # (Manual) Eosinophils # (Manual) Basophils # (Manual) PT INR Fibrinogen dRVVT Confirm Interp Factor V Activity POC ABG pH POC ABG pCO2 POC ABG pO2 ABG pO2 ABG HCO3 ABG Base Excess ABG Hemoglobin Oxyhemoglobin Sodium Potassium Chloride Carbon Dioxide 15 L BUN 124 H Creatinine 3.8 H Glucose POC Glucose 120 H Lactic Acid Calcium 8.1 L Phosphorus Magnesium Direct Bilirubin AST ALT Alkaline Phosphatase Lactate Dehydrogenase Troponin T C-Reactive Protein Total Protein Albumin Prealbumin Triglycerides Cholesterol LDL Cholesterol Direct HDL Cholesterol PTH Intact Urine pH Urine WBC (Auto) Urine Creatinine Urine Total Protein Fluid Total Protein Vancomycin Trough Rheumatoid Factor Complement C4 Miscellaneous Test Crossmatch 09/18/16 09/18/16 09/18/16 12:03 15:34 17:50 WBC RBC Hgb Hct MCV MCH MCHC RDW Plt Count Lymph % (Auto) [place] % (Auto) Lymph # [place] # Baso # Seg Neutrophils % Seg Neuts % (Manual) Lymphocytes % (Manual) Monocytes % (Manual) Eosinophils % (Manual) Basophils % (Manual) Nucleated RBC % Seg Neutrophils # Seg Neutrophils # Man Lymphocytes # (Manual) Monocytes # (Manual) Eosinophils # (Manual) Basophils # (Manual) PT INR Fibrinogen dRVVT Confirm Interp Factor V Activity POC ABG pH POC ABG pCO2 25.7 L POC ABG pO2 66 L ABG pO2 ABG HCO3 ABG Base Excess ABG Hemoglobin Oxyhemoglobin Sodium Potassium Chloride Carbon Dioxide BUN Creatinine Glucose POC Glucose 156 H 220 H Lactic Acid Calcium Phosphorus Magnesium Direct Bilirubin AST ALT Alkaline Phosphatase Lactate Dehydrogenase Troponin T C-Reactive Protein Total Protein Albumin Prealbumin Triglycerides Cholesterol LDL Cholesterol Direct HDL Cholesterol PTH Intact Urine pH Urine WBC (Auto) Urine Creatinine Urine Total Protein Fluid Total Protein Vancomycin Trough Rheumatoid Factor Complement C4 Miscellaneous Test Crossmatch 09/19/16 09/19/16 09/19/16 06:21 09:50 09:50 WBC 17.1 H RBC 3.49 L Hgb 9.0 L Hct 28.1 L MCV MCH 26 L MCHC RDW 20.8 H Plt Count Lymph % (Auto) 11.5 L [place] % (Auto) 7.5 H Lymph # [place] # 1.3 H Baso # Seg Neutrophils % 79.8 H Seg Neuts % (Manual) Lymphocytes % (Manual) Monocytes % (Manual) Eosinophils % (Manual) Basophils % (Manual) Nucleated RBC % Seg Neutrophils # 13.7 H Seg Neutrophils # Man Lymphocytes # (Manual) Monocytes # (Manual) Eosinophils # (Manual) Basophils # (Manual) PT INR Fibrinogen dRVVT Confirm Interp Factor V Activity POC ABG pH POC ABG pCO2 POC ABG pO2 ABG pO2 ABG HCO3 ABG Base Excess ABG Hemoglobin Oxyhemoglobin Sodium Potassium Chloride 108.6 H Carbon Dioxide 15 L BUN 125 H Creatinine 4.1 H Glucose 124 H POC Glucose 119 H Lactic Acid Calcium Phosphorus Magnesium Direct Bilirubin AST ALT Alkaline Phosphatase Lactate Dehydrogenase Troponin T C-Reactive Protein Total Protein Albumin Prealbumin Triglycerides Cholesterol LDL Cholesterol Direct HDL Cholesterol PTH Intact Urine pH Urine WBC (Auto) Urine Creatinine Urine Total Protein Fluid Total Protein Vancomycin Trough Rheumatoid Factor Complement C4 Miscellaneous Test Crossmatch 09/19/16 09/19/16 09/19/16 11:25 17:53 23:36 WBC RBC Hgb Hct MCV MCH MCHC RDW Plt Count Lymph % (Auto) [place] % (Auto) Lymph # [place] # Baso # Seg Neutrophils % Seg Neuts % (Manual) Lymphocytes % (Manual) Monocytes % (Manual) Eosinophils % (Manual) Basophils % (Manual) Nucleated RBC % Seg Neutrophils # Seg Neutrophils # Man Lymphocytes # (Manual) Monocytes # (Manual) Eosinophils # (Manual) Basophils # (Manual) PT INR Fibrinogen dRVVT Confirm Interp Factor V Activity POC ABG pH POC ABG pCO2 POC ABG pO2 ABG pO2 ABG HCO3 ABG Base Excess ABG Hemoglobin Oxyhemoglobin Sodium Potassium Chloride Carbon Dioxide BUN Creatinine Glucose POC Glucose 160 H 245 H 121 H Lactic Acid Calcium Phosphorus Magnesium Direct Bilirubin AST ALT Alkaline Phosphatase Lactate Dehydrogenase Troponin T C-Reactive Protein Total Protein Albumin Prealbumin Triglycerides Cholesterol LDL Cholesterol Direct HDL Cholesterol PTH Intact Urine pH Urine WBC (Auto) Urine Creatinine Urine Total Protein Fluid Total Protein Vancomycin Trough Rheumatoid Factor Complement C4 Miscellaneous Test Crossmatch 09/20/16 09/20/16 09/20/16 04:10 04:10 04:10 WBC 17.0 H RBC 3.21 L Hgb 8.2 L Hct 25.5 L MCV MCH 26 L MCHC RDW 20.9 H Plt Count Lymph % (Auto) [place] % (Auto) Lymph # [place] # Baso # Seg Neutrophils % Seg Neuts % (Manual) Lymphocytes % (Manual) Monocytes % (Manual) Eosinophils % (Manual) Basophils % (Manual) Nucleated RBC % Seg Neutrophils # Seg Neutrophils # Man Lymphocytes # (Manual) Monocytes # (Manual) Eosinophils # (Manual) Basophils # (Manual) PT INR Fibrinogen dRVVT Confirm Interp Factor V Activity POC ABG pH POC ABG pCO2 POC ABG pO2 ABG pO2 ABG HCO3 ABG Base Excess ABG Hemoglobin Oxyhemoglobin Sodium Potassium Chloride 111.0 H Carbon Dioxide 16 L BUN 129 H Creatinine 3.7 H Glucose 115 H POC Glucose Lactic Acid Calcium 8.2 L Phosphorus Magnesium Direct Bilirubin AST ALT Alkaline Phosphatase Lactate Dehydrogenase Troponin T C-Reactive Protein Total Protein Albumin Prealbumin Triglycerides 243 H Cholesterol LDL Cholesterol Direct HDL Cholesterol PTH Intact Urine pH Urine WBC (Auto) Urine Creatinine Urine Total Protein Fluid Total Protein Vancomycin Trough Rheumatoid Factor Complement C4 Miscellaneous Test Crossmatch 09/20/16 09/20/16 09/20/16 05:40 11:52 16:50 WBC RBC Hgb Hct MCV MCH MCHC RDW Plt Count Lymph % (Auto) [place] % (Auto) Lymph # [place] # Baso # Seg Neutrophils % Seg Neuts % (Manual) Lymphocytes % (Manual) Monocytes % (Manual) Eosinophils % (Manual) Basophils % (Manual) Nucleated RBC % Seg Neutrophils # Seg Neutrophils # Man Lymphocytes # (Manual) Monocytes # (Manual) Eosinophils # (Manual) Basophils # (Manual) PT INR Fibrinogen dRVVT Confirm Interp Factor V Activity POC ABG pH POC ABG pCO2 POC ABG pO2 ABG pO2 ABG HCO3 ABG Base Excess ABG Hemoglobin Oxyhemoglobin Sodium Potassium Chloride Carbon Dioxide BUN Creatinine Glucose POC Glucose 131 H 183 H 236 H Lactic Acid Calcium Phosphorus Magnesium Direct Bilirubin AST ALT Alkaline Phosphatase Lactate Dehydrogenase Troponin T C-Reactive Protein Total Protein Albumin Prealbumin Triglycerides Cholesterol LDL Cholesterol Direct HDL Cholesterol PTH Intact Urine pH Urine WBC (Auto) Urine Creatinine Urine Total Protein Fluid Total Protein Vancomycin Trough Rheumatoid Factor Complement C4 Miscellaneous Test Crossmatch 09/20/16 09/21/16 09/21/16 23:51 03:30 04:44 WBC RBC Hgb Hct MCV MCH MCHC RDW Plt Count Lymph % (Auto) [place] % (Auto) Lymph # [place] # Baso # Seg Neutrophils % Seg Neuts % (Manual) Lymphocytes % (Manual) Monocytes % (Manual) Eosinophils % (Manual) Basophils % (Manual) Nucleated RBC % Seg Neutrophils # Seg Neutrophils # Man Lymphocytes # (Manual) Monocytes # (Manual) Eosinophils # (Manual) Basophils # (Manual) PT INR Fibrinogen dRVVT Confirm Interp Factor V Activity POC ABG pH POC ABG pCO2 POC ABG pO2 ABG pO2 ABG HCO3 ABG Base Excess ABG Hemoglobin Oxyhemoglobin Sodium Potassium Chloride Carbon Dioxide BUN Creatinine Glucose POC Glucose 114 H 141 H Lactic Acid Calcium Phosphorus Magnesium 2.70 H Direct Bilirubin AST ALT Alkaline Phosphatase Lactate Dehydrogenase Troponin T C-Reactive Protein Total Protein Albumin Prealbumin Triglycerides Cholesterol LDL Cholesterol Direct HDL Cholesterol PTH Intact Urine pH Urine WBC (Auto) Urine Creatinine Urine Total Protein Fluid Total Protein Vancomycin Trough Rheumatoid Factor Complement C4 Miscellaneous Test Crossmatch 09/21/16 09/21/16 09/21/16 07:45 07:45 10:01 WBC 13.8 H RBC 2.94 L Hgb 7.5 L Hct 23.5 L MCV MCH 26 L MCHC RDW 21.2 H Plt Count Lymph % (Auto) 6.9 L [place] % (Auto) 9.4 H Lymph # 0.9 L [place] # 1.3 H Baso # Seg Neutrophils % 83.2 H Seg Neuts % (Manual) Lymphocytes % (Manual) Monocytes % (Manual) Eosinophils % (Manual) Basophils % (Manual) Nucleated RBC % Seg Neutrophils # 11.5 H Seg Neutrophils # Man Lymphocytes # (Manual) Monocytes # (Manual) Eosinophils # (Manual) Basophils # (Manual) PT INR Fibrinogen dRVVT Confirm Interp Factor V Activity POC ABG pH 7.308 L POC ABG pCO2 31.9 L POC ABG pO2 148 H ABG pO2 ABG HCO3 ABG Base Excess ABG Hemoglobin Oxyhemoglobin Sodium 147 H Potassium Chloride 114.2 H Carbon Dioxide 15 L BUN 120 H Creatinine 3.9 H Glucose 156 H POC Glucose Lactic Acid Calcium 8.2 L Phosphorus Magnesium Direct Bilirubin AST ALT Alkaline Phosphatase Lactate Dehydrogenase Troponin T C-Reactive Protein Total Protein Albumin Prealbumin Triglycerides Cholesterol LDL Cholesterol Direct HDL Cholesterol PTH Intact Urine pH Urine WBC (Auto) Urine Creatinine Urine Total Protein Fluid Total Protein Vancomycin Trough Rheumatoid Factor Complement C4 Miscellaneous Test Crossmatch 09/21/16 09/21/16 09/21/16 12:00 12:03 13:00 WBC RBC Hgb Hct MCV MCH MCHC RDW Plt Count Lymph % (Auto) [place] % (Auto) Lymph # [place] # Baso # Seg Neutrophils % Seg Neuts % (Manual) Lymphocytes % (Manual) Monocytes % (Manual) Eosinophils % (Manual) Basophils % (Manual) Nucleated RBC % Seg Neutrophils # Seg Neutrophils # Man Lymphocytes # (Manual) Monocytes # (Manual) Eosinophils # (Manual) Basophils # (Manual) PT INR Fibrinogen dRVVT Confirm Interp Factor V Activity POC ABG pH POC ABG pCO2 POC ABG pO2 ABG pO2 ABG HCO3 ABG Base Excess ABG Hemoglobin Oxyhemoglobin Sodium Potassium Chloride Carbon Dioxide BUN Creatinine Glucose POC Glucose 163 H Lactic Acid Calcium Phosphorus Magnesium Direct Bilirubin AST ALT Alkaline Phosphatase Lactate Dehydrogenase Troponin T C-Reactive Protein Total Protein Albumin Prealbumin Triglycerides Cholesterol LDL Cholesterol Direct HDL Cholesterol PTH Intact Urine pH Urine WBC (Auto) Urine Creatinine 54.8 H Urine Total Protein Fluid Total Protein Vancomycin Trough 2.3 L Rheumatoid Factor Complement C4 Miscellaneous Test Crossmatch 09/21/16 09/21/16 09/22/16 16:51 23:17 06:27 WBC RBC Hgb Hct MCV MCH MCHC RDW Plt Count Lymph % (Auto) [place] % (Auto) Lymph # [place] # Baso # Seg Neutrophils % Seg Neuts % (Manual) Lymphocytes % (Manual) Monocytes % (Manual) Eosinophils % (Manual) Basophils % (Manual) Nucleated RBC % Seg Neutrophils # Seg Neutrophils # Man Lymphocytes # (Manual) Monocytes # (Manual) Eosinophils # (Manual) Basophils # (Manual) PT INR Fibrinogen dRVVT Confirm Interp Factor V Activity POC ABG pH POC ABG pCO2 POC ABG pO2 ABG pO2 ABG HCO3 ABG Base Excess ABG Hemoglobin Oxyhemoglobin Sodium Potassium Chloride Carbon Dioxide BUN Creatinine Glucose POC Glucose 206 H 114 H 115 H Lactic Acid Calcium Phosphorus Magnesium Direct Bilirubin AST ALT Alkaline Phosphatase Lactate Dehydrogenase Troponin T C-Reactive Protein Total Protein Albumin Prealbumin Triglycerides Cholesterol LDL Cholesterol Direct HDL Cholesterol PTH Intact Urine pH Urine WBC (Auto) Urine Creatinine Urine Total Protein Fluid Total Protein Vancomycin Trough Rheumatoid Factor Complement C4 Miscellaneous Test Crossmatch 09/22/16 09/22/16 09/22/16 07:50 07:50 12:00 WBC 17.8 H RBC 3.04 L Hgb 8.0 L Hct 24.7 L MCV MCH 26 L MCHC RDW 21.6 H Plt Count Lymph % (Auto) [place] % (Auto) Lymph # [place] # Baso # Seg Neutrophils % Seg Neuts % (Manual) Lymphocytes % (Manual) Monocytes % (Manual) Eosinophils % (Manual) Basophils % (Manual) Nucleated RBC % Seg Neutrophils # Seg Neutrophils # Man Lymphocytes # (Manual) Monocytes # (Manual) Eosinophils # (Manual) Basophils # (Manual) PT INR Fibrinogen dRVVT Confirm Interp Factor V Activity POC ABG pH POC ABG pCO2 POC ABG pO2 ABG pO2 ABG HCO3 ABG Base Excess ABG Hemoglobin Oxyhemoglobin Sodium 150 H Potassium Chloride 118.2 H Carbon Dioxide 14 L BUN 111 H Creatinine 3.7 H Glucose 157 H POC Glucose 183 H Lactic Acid Calcium Phosphorus Magnesium Direct Bilirubin AST ALT Alkaline Phosphatase Lactate Dehydrogenase Troponin T C-Reactive Protein Total Protein Albumin Prealbumin Triglycerides Cholesterol LDL Cholesterol Direct HDL Cholesterol PTH Intact Urine pH Urine WBC (Auto) Urine Creatinine Urine Total Protein Fluid Total Protein Vancomycin Trough Rheumatoid Factor Complement C4 Miscellaneous Test Crossmatch 09/22/16 09/22/16 09/23/16 17:29 23:10 05:00 WBC 19.2 H RBC 3.13 L Hgb 8.0 L Hct 25.2 L MCV MCH 26 L MCHC RDW 22.1 H Plt Count Lymph % (Auto) [place] % (Auto) Lymph # [place] # Baso # Seg Neutrophils % Seg Neuts % (Manual) 92.0 H Lymphocytes % (Manual) 3.0 L Monocytes % (Manual) Eosinophils % (Manual) Basophils % (Manual) Nucleated RBC % Seg Neutrophils # Seg Neutrophils # Man 17.7 H Lymphocytes # (Manual) 0.6 L Monocytes # (Manual) Eosinophils # (Manual) Basophils # (Manual) PT INR Fibrinogen dRVVT Confirm Interp Factor V Activity POC ABG pH POC ABG pCO2 POC ABG pO2 ABG pO2 ABG HCO3 ABG Base Excess ABG Hemoglobin Oxyhemoglobin Sodium Potassium Chloride Carbon Dioxide BUN Creatinine Glucose POC Glucose 197 H 169 H Lactic Acid Calcium Phosphorus Magnesium Direct Bilirubin AST ALT Alkaline Phosphatase Lactate Dehydrogenase Troponin T C-Reactive Protein Total Protein Albumin Prealbumin Triglycerides Cholesterol LDL Cholesterol Direct HDL Cholesterol PTH Intact Urine pH Urine WBC (Auto) Urine Creatinine Urine Total Protein Fluid Total Protein Vancomycin Trough Rheumatoid Factor Complement C4 Miscellaneous Test Crossmatch 0809/23/16 09/23/16 05:00 05:00 05:10 WBC RBC Hgb Hct MCV MCH MCHC RDW Plt Count Lymph % (Auto) [place] % (Auto) Lymph # [place] # Baso # Seg Neutrophils % Seg Neuts % (Manual) Lymphocytes % (Manual) Monocytes % (Manual) Eosinophils % (Manual) Basophils % (Manual) Nucleated RBC % Seg Neutrophils # Seg Neutrophils # Man Lymphocytes # (Manual) Monocytes # (Manual) Eosinophils # (Manual) Basophils # (Manual) PT INR Fibrinogen dRVVT Confirm Interp Factor V Activity POC ABG pH POC ABG pCO2 POC ABG pO2 ABG pO2 ABG HCO3 ABG Base Excess ABG Hemoglobin Oxyhemoglobin Sodium 147 H Potassium 3.2 L Chloride 115.7 H Carbon Dioxide 13 L BUN 111 H Creatinine 3.8 H Glucose 194 H POC Glucose 188 H Lactic Acid Calcium 7.3 L D Phosphorus Magnesium Direct Bilirubin AST ALT Alkaline Phosphatase Lactate Dehydrogenase Troponin T C-Reactive Protein 3.20 H Total Protein Albumin Prealbumin Triglycerides Cholesterol LDL Cholesterol Direct HDL Cholesterol PTH Intact Urine pH Urine WBC (Auto) Urine Creatinine Urine Total Protein Fluid Total Protein Vancomycin Trough Rheumatoid Factor Complement C4 Miscellaneous Test Crossmatch 09/23/16 09/23/16 09/23/16 11:37 12:29 18:01 WBC RBC Hgb Hct MCV MCH MCHC RDW Plt Count Lymph % (Auto) [place] % (Auto) Lymph # [place] # Baso # Seg Neutrophils % Seg Neuts % (Manual) Lymphocytes % (Manual) Monocytes % (Manual) Eosinophils % (Manual) Basophils % (Manual) Nucleated RBC % Seg Neutrophils # Seg Neutrophils # Man Lymphocytes # (Manual) Monocytes # (Manual) Eosinophils # (Manual) Basophils # (Manual) PT INR Fibrinogen dRVVT Confirm Interp Factor V Activity POC ABG pH POC ABG pCO2 18.9 L POC ABG pO2 143 H ABG pO2 ABG HCO3 ABG Base Excess ABG Hemoglobin Oxyhemoglobin Sodium Potassium Chloride Carbon Dioxide BUN Creatinine Glucose POC Glucose 153 H 108 H Lactic Acid Calcium Phosphorus Magnesium Direct Bilirubin AST ALT Alkaline Phosphatase Lactate Dehydrogenase Troponin T C-Reactive Protein Total Protein Albumin Prealbumin Triglycerides Cholesterol LDL Cholesterol Direct HDL Cholesterol PTH Intact Urine pH Urine WBC (Auto) Urine Creatinine Urine Total Protein Fluid Total Protein Vancomycin Trough Rheumatoid Factor Complement C4 Miscellaneous Test Crossmatch 09/23/16 09/23/16 09/24/16 21:19 23:43 05:16 WBC RBC Hgb Hct MCV MCH MCHC RDW Plt Count Lymph % (Auto) [place] % (Auto) Lymph # [place] # Baso # Seg Neutrophils % Seg Neuts % (Manual) Lymphocytes % (Manual) Monocytes % (Manual) Eosinophils % (Manual) Basophils % (Manual) Nucleated RBC % Seg Neutrophils # Seg Neutrophils # Man Lymphocytes # (Manual) Monocytes # (Manual) Eosinophils # (Manual) Basophils # (Manual) PT INR Fibrinogen dRVVT Confirm Interp Factor V Activity POC ABG pH POC ABG pCO2 17.3 L POC ABG pO2 112 H ABG pO2 ABG HCO3 ABG Base Excess ABG Hemoglobin Oxyhemoglobin Sodium Potassium Chloride Carbon Dioxide BUN Creatinine Glucose POC Glucose 143 H 164 H Lactic Acid Calcium Phosphorus Magnesium Direct Bilirubin AST ALT Alkaline Phosphatase Lactate Dehydrogenase Troponin T C-Reactive Protein Total Protein Albumin Prealbumin Triglycerides Cholesterol LDL Cholesterol Direct HDL Cholesterol PTH Intact Urine pH Urine WBC (Auto) Urine Creatinine Urine Total Protein Fluid Total Protein Vancomycin Trough Rheumatoid Factor Complement C4 Miscellaneous Test Crossmatch 09/24/16 09/24/16 09/24/16 05:21 11:58 17:06 WBC RBC Hgb Hct MCV MCH MCHC RDW Plt Count Lymph % (Auto) [place] % (Auto) Lymph # [place] # Baso # Seg Neutrophils % Seg Neuts % (Manual) Lymphocytes % (Manual) Monocytes % (Manual) Eosinophils % (Manual) Basophils % (Manual) Nucleated RBC % Seg Neutrophils # Seg Neutrophils # Man Lymphocytes # (Manual) Monocytes # (Manual) Eosinophils # (Manual) Basophils # (Manual) PT INR Fibrinogen dRVVT Confirm Interp Factor V Activity POC ABG pH POC ABG pCO2 POC ABG pO2 ABG pO2 ABG HCO3 ABG Base Excess ABG Hemoglobin Oxyhemoglobin Sodium Potassium Chloride Carbon Dioxide 10 L BUN 103 H Creatinine 4.3 H Glucose 163 H POC Glucose 173 H 167 H Lactic Acid Calcium 6.5 L Phosphorus Magnesium Direct Bilirubin AST ALT Alkaline Phosphatase Lactate Dehydrogenase Troponin T C-Reactive Protein Total Protein Albumin Prealbumin Triglycerides Cholesterol LDL Cholesterol Direct HDL Cholesterol PTH Intact Urine pH Urine WBC (Auto) Urine Creatinine Urine Total Protein Fluid Total Protein Vancomycin Trough Rheumatoid Factor Complement C4 Miscellaneous Test Crossmatch 09/24/16 09/24/16 09/24/16 20:15 21:02 23:48 WBC RBC Hgb Hct MCV MCH MCHC RDW Plt Count Lymph % (Auto) [place] % (Auto) Lymph # [place] # Baso # Seg Neutrophils % Seg Neuts % (Manual) Lymphocytes % (Manual) Monocytes % (Manual) Eosinophils % (Manual) Basophils % (Manual) Nucleated RBC % Seg Neutrophils # Seg Neutrophils # Man Lymphocytes # (Manual) Monocytes # (Manual) Eosinophils # (Manual) Basophils # (Manual) PT INR Fibrinogen dRVVT Confirm Interp Factor V Activity POC ABG pH 7.288 L POC ABG pCO2 30.2 L 21.5 L POC ABG pO2 32 L 39 L ABG pO2 ABG HCO3 ABG Base Excess ABG Hemoglobin Oxyhemoglobin Sodium Potassium Chloride Carbon Dioxide BUN Creatinine Glucose POC Glucose 109 H Lactic Acid Calcium Phosphorus Magnesium Direct Bilirubin AST ALT Alkaline Phosphatase Lactate Dehydrogenase Troponin T C-Reactive Protein Total Protein Albumin Prealbumin Triglycerides Cholesterol LDL Cholesterol Direct HDL Cholesterol PTH Intact Urine pH Urine WBC (Auto) Urine Creatinine Urine Total Protein Fluid Total Protein Vancomycin Trough Rheumatoid Factor Complement C4 Miscellaneous Test Crossmatch 09/25/16 09/25/16 09/25/16 04:20 04:20 04:20 WBC RBC 2.58 L Hgb 7.0 L Hct 21.0 L MCV MCH 27 L MCHC RDW 23.8 H Plt Count Lymph % (Auto) [place] % (Auto) Lymph # [place] # Baso # Seg Neutrophils % Seg Neuts % (Manual) Lymphocytes % (Manual) 12.0 L Monocytes % (Manual) Eosinophils % (Manual) 7.0 H Basophils % (Manual) 2.0 H Nucleated RBC % Seg Neutrophils # Seg Neutrophils # Man Lymphocytes # (Manual) 0.9 L Monocytes # (Manual) Eosinophils # (Manual) 0.5 H Basophils # (Manual) PT INR Fibrinogen dRVVT Confirm Interp Factor V Activity POC ABG pH POC ABG pCO2 POC ABG pO2 ABG pO2 ABG HCO3 ABG Base Excess ABG Hemoglobin Oxyhemoglobin Sodium Potassium Chloride Carbon Dioxide 15 L BUN 72 H Creatinine 3.8 H Glucose POC Glucose Lactic Acid Calcium 6.0 L Phosphorus 4.60 H Magnesium 1.60 L Direct Bilirubin AST ALT Alkaline Phosphatase Lactate Dehydrogenase Troponin T C-Reactive Protein Total Protein Albumin Prealbumin Triglycerides Cholesterol LDL Cholesterol Direct HDL Cholesterol PTH Intact Urine pH Urine WBC (Auto) Urine Creatinine Urine Total Protein Fluid Total Protein Vancomycin Trough Rheumatoid Factor Complement C4 Miscellaneous Test Crossmatch 09/25/16 09/25/16 09/25/16 04:57 08:02 10:30 WBC RBC Hgb Hct MCV MCH MCHC RDW Plt Count Lymph % (Auto) [place] % (Auto) Lymph # [place] # Baso # Seg Neutrophils % Seg Neuts % (Manual) Lymphocytes % (Manual) Monocytes % (Manual) Eosinophils % (Manual) Basophils % (Manual) Nucleated RBC % Seg Neutrophils # Seg Neutrophils # Man Lymphocytes # (Manual) Monocytes # (Manual) Eosinophils # (Manual) Basophils # (Manual) PT INR Fibrinogen dRVVT Confirm Interp Factor V Activity POC ABG pH POC ABG pCO2 24.7 L POC ABG pO2 152 H ABG pO2 ABG HCO3 ABG Base Excess ABG Hemoglobin Oxyhemoglobin Sodium Potassium Chloride Carbon Dioxide BUN Creatinine Glucose POC Glucose 113 H Lactic Acid Calcium Phosphorus Magnesium Direct Bilirubin AST ALT Alkaline Phosphatase Lactate Dehydrogenase Troponin T C-Reactive Protein Total Protein Albumin Prealbumin Triglycerides Cholesterol LDL Cholesterol Direct HDL Cholesterol PTH Intact Urine pH Urine WBC (Auto) Urine Creatinine Urine Total Protein Fluid Total Protein Vancomycin Trough Rheumatoid Factor Complement C4 Miscellaneous Test Crossmatch See Detail 09/25/16 09/25/16 09/25/16 12:05 17:44 23:47 WBC RBC Hgb Hct MCV MCH MCHC RDW Plt Count Lymph % (Auto) [place] % (Auto) Lymph # [place] # Baso # Seg Neutrophils % Seg Neuts % (Manual) Lymphocytes % (Manual) Monocytes % (Manual) Eosinophils % (Manual) Basophils % (Manual) Nucleated RBC % Seg Neutrophils # Seg Neutrophils # Man Lymphocytes # (Manual) Monocytes # (Manual) Eosinophils # (Manual) Basophils # (Manual) PT INR Fibrinogen dRVVT Confirm Interp Factor V Activity POC ABG pH POC ABG pCO2 POC ABG pO2 ABG pO2 ABG HCO3 ABG Base Excess ABG Hemoglobin Oxyhemoglobin Sodium Potassium Chloride Carbon Dioxide BUN Creatinine Glucose POC Glucose 117 H 119 H 150 H Lactic Acid Calcium Phosphorus Magnesium Direct Bilirubin AST ALT Alkaline Phosphatase Lactate Dehydrogenase Troponin T C-Reactive Protein Total Protein Albumin Prealbumin Triglycerides Cholesterol LDL Cholesterol Direct HDL Cholesterol PTH Intact Urine pH Urine WBC (Auto) Urine Creatinine Urine Total Protein Fluid Total Protein Vancomycin Trough Rheumatoid Factor Complement C4 Miscellaneous Test Crossmatch 09/26/16 09/26/16 09/26/16 04:25 04:25 04:25 WBC RBC 2.65 L Hgb 7.4 L Hct 21.6 L MCV MCH MCHC RDW 22.5 H Plt Count Lymph % (Auto) [place] % (Auto) Lymph # [place] # Baso # Seg Neutrophils % Seg Neuts % (Manual) Lymphocytes % (Manual) 6.0 L Monocytes % (Manual) Eosinophils % (Manual) 11.0 H Basophils % (Manual) Nucleated RBC % Seg Neutrophils # Seg Neutrophils # Man Lymphocytes # (Manual) 0.4 L Monocytes # (Manual) Eosinophils # (Manual) 0.6 H Basophils # (Manual) PT INR Fibrinogen dRVVT Confirm Interp Factor V Activity POC ABG pH POC ABG pCO2 POC ABG pO2 ABG pO2 ABG HCO3 ABG Base Excess ABG Hemoglobin Oxyhemoglobin Sodium Potassium Chloride 97.0 L Carbon Dioxide 19 L BUN 43 H Creatinine 2.6 H Glucose 130 H POC Glucose Lactic Acid 4.40 H* Calcium 6.7 L Phosphorus Magnesium Direct Bilirubin AST ALT Alkaline Phosphatase Lactate Dehydrogenase Troponin T C-Reactive Protein Total Protein Albumin Prealbumin Triglycerides Cholesterol LDL Cholesterol Direct HDL Cholesterol PTH Intact Urine pH Urine WBC (Auto) Urine Creatinine Urine Total Protein Fluid Total Protein Vancomycin Trough Rheumatoid Factor Complement C4 Miscellaneous Test Crossmatch 09/26/16 09/26/16 09/26/16 05:20 11:44 12:12 WBC RBC Hgb Hct MCV MCH MCHC RDW Plt Count Lymph % (Auto) [place] % (Auto) Lymph # [place] # Baso # Seg Neutrophils % Seg Neuts % (Manual) Lymphocytes % (Manual) Monocytes % (Manual) Eosinophils % (Manual) Basophils % (Manual) Nucleated RBC % Seg Neutrophils # Seg Neutrophils # Man Lymphocytes # (Manual) Monocytes # (Manual) Eosinophils # (Manual) Basophils # (Manual) PT INR Fibrinogen dRVVT Confirm Interp Factor V Activity POC ABG pH POC ABG pCO2 27.0 L POC ABG pO2 69 L ABG pO2 ABG HCO3 ABG Base Excess ABG Hemoglobin Oxyhemoglobin Sodium Potassium Chloride Carbon Dioxide BUN Creatinine Glucose POC Glucose 121 H 128 H Lactic Acid Calcium Phosphorus Magnesium Direct Bilirubin AST ALT Alkaline Phosphatase Lactate Dehydrogenase Troponin T C-Reactive Protein Total Protein Albumin Prealbumin Triglycerides Cholesterol LDL Cholesterol Direct HDL Cholesterol PTH Intact Urine pH Urine WBC (Auto) Urine Creatinine Urine Total Protein Fluid Total Protein Vancomycin Trough Rheumatoid Factor Complement C4 Miscellaneous Test Crossmatch 09/26/16 09/26/16 09/27/16 18:31 23:40 08:20 WBC RBC Hgb Hct MCV MCH MCHC RDW Plt Count Lymph % (Auto) [place] % (Auto) Lymph # [place] # Baso # Seg Neutrophils % Seg Neuts % (Manual) Lymphocytes % (Manual) Monocytes % (Manual) Eosinophils % (Manual) Basophils % (Manual) Nucleated RBC % Seg Neutrophils # Seg Neutrophils # Man Lymphocytes # (Manual) Monocytes # (Manual) Eosinophils # (Manual) Basophils # (Manual) PT INR Fibrinogen dRVVT Confirm Interp Factor V Activity POC ABG pH POC ABG pCO2 POC ABG pO2 ABG pO2 ABG HCO3 ABG Base Excess ABG Hemoglobin Oxyhemoglobin Sodium Potassium Chloride Carbon Dioxide BUN Creatinine Glucose POC Glucose 120 H 133 H Lactic Acid 4.10 H* Calcium Phosphorus Magnesium Direct Bilirubin AST ALT Alkaline Phosphatase Lactate Dehydrogenase Troponin T C-Reactive Protein Total Protein Albumin Prealbumin Triglycerides Cholesterol LDL Cholesterol Direct HDL Cholesterol PTH Intact Urine pH Urine WBC (Auto) Urine Creatinine Urine Total Protein Fluid Total Protein Vancomycin Trough Rheumatoid Factor Complement C4 Miscellaneous Test Crossmatch 09/27/16 09/27/16 09/27/16 11:23 15:00 18:15 WBC RBC Hgb Hct MCV MCH MCHC RDW Plt Count Lymph % (Auto) [place] % (Auto) Lymph # [place] # Baso # Seg Neutrophils % Seg Neuts % (Manual) Lymphocytes % (Manual) Monocytes % (Manual) Eosinophils % (Manual) Basophils % (Manual) Nucleated RBC % Seg Neutrophils # Seg Neutrophils # Man Lymphocytes # (Manual) Monocytes # (Manual) Eosinophils # (Manual) Basophils # (Manual) PT INR Fibrinogen dRVVT Confirm Interp Factor V Activity POC ABG pH 7.459 H POC ABG pCO2 27.1 L POC ABG pO2 140 H ABG pO2 ABG HCO3 ABG Base Excess ABG Hemoglobin Oxyhemoglobin Sodium Potassium Chloride Carbon Dioxide BUN Creatinine Glucose POC Glucose 114 H 127 H Lactic Acid Calcium Phosphorus Magnesium Direct Bilirubin AST ALT Alkaline Phosphatase Lactate Dehydrogenase Troponin T C-Reactive Protein Total Protein Albumin Prealbumin Triglycerides Cholesterol LDL Cholesterol Direct HDL Cholesterol PTH Intact Urine pH Urine WBC (Auto) Urine Creatinine Urine Total Protein Fluid Total Protein Vancomycin Trough Rheumatoid Factor Complement C4 Miscellaneous Test Crossmatch 09/27/16 09/27/16 09/28/16 Unknown Unknown 03:45 WBC RBC 2.49 L Hgb 6.8 L Hct 20.7 L MCV MCH 27 L MCHC RDW 22.1 H Plt Count Lymph % (Auto) [place] % (Auto) Lymph # [place] # Baso # Seg Neutrophils % Seg Neuts % (Manual) 32.0 L Lymphocytes % (Manual) 12.0 L Monocytes % (Manual) 11.0 H Eosinophils % (Manual) 10.0 H Basophils % (Manual) Nucleated RBC % Seg Neutrophils # Seg Neutrophils # Man Lymphocytes # (Manual) 1.0 L Monocytes # (Manual) 0.9 H Eosinophils # (Manual) 0.8 H Basophils # (Manual) PT INR Fibrinogen dRVVT Confirm Interp Factor V Activity POC ABG pH POC ABG pCO2 POC ABG pO2 ABG pO2 ABG HCO3 ABG Base Excess ABG Hemoglobin Oxyhemoglobin Sodium 135 L 135 L Potassium 3.5 L Chloride 93.6 L 94.4 L Carbon Dioxide 17 L 21 L BUN 45 H 28 H Creatinine 3.3 H 2.5 H Glucose 106 H POC Glucose Lactic Acid Calcium 7.3 L 7.1 L Phosphorus Magnesium Direct Bilirubin AST ALT Alkaline Phosphatase Lactate Dehydrogenase Troponin T C-Reactive Protein Total Protein Albumin Prealbumin Triglycerides Cholesterol LDL Cholesterol Direct HDL Cholesterol PTH Intact Urine pH Urine WBC (Auto) Urine Creatinine Urine Total Protein Fluid Total Protein Vancomycin Trough Rheumatoid Factor Complement C4 Miscellaneous Test Crossmatch 09/28/16 09/28/16 09/28/16 03:45 07:25 11:58 WBC 13.3 H RBC 3.01 L Hgb 8.4 L Hct 25.0 L MCV MCH MCHC RDW 20.5 H Plt Count 128 L Lymph % (Auto) [place] % (Auto) Lymph # [place] # Baso # Seg Neutrophils % Seg Neuts % (Manual) Lymphocytes % (Manual) 7.0 L Monocytes % (Manual) Eosinophils % (Manual) 6.0 H Basophils % (Manual) Nucleated RBC % Seg Neutrophils # Seg Neutrophils # Man Lymphocytes # (Manual) 0.9 L Monocytes # (Manual) Eosinophils # (Manual) 0.8 H Basophils # (Manual) PT INR Fibrinogen dRVVT Confirm Interp Factor V Activity POC ABG pH POC ABG pCO2 POC ABG pO2 ABG pO2 ABG HCO3 ABG Base Excess ABG Hemoglobin Oxyhemoglobin Sodium Potassium Chloride Carbon Dioxide BUN Creatinine Glucose POC Glucose 121 H Lactic Acid 4.50 H* Calcium Phosphorus Magnesium Direct Bilirubin AST ALT Alkaline Phosphatase Lactate Dehydrogenase Troponin T C-Reactive Protein Total Protein Albumin Prealbumin Triglycerides Cholesterol LDL Cholesterol Direct HDL Cholesterol PTH Intact Urine pH Urine WBC (Auto) Urine Creatinine Urine Total Protein Fluid Total Protein Vancomycin Trough Rheumatoid Factor Complement C4 Miscellaneous Test Crossmatch 09/29/16 09/29/16 09/29/16 06:45 06:45 06:45 WBC 14.9 H RBC 2.74 L Hgb 7.6 L Hct 23.2 L MCV MCH MCHC RDW 20.5 H Plt Count 81 L Lymph % (Auto) [place] % (Auto) Lymph # [place] # Baso # Seg Neutrophils % Seg Neuts % (Manual) 81.0 H Lymphocytes % (Manual) 4.0 L Monocytes % (Manual) Eosinophils % (Manual) Basophils % (Manual) Nucleated RBC % Seg Neutrophils # Seg Neutrophils # Man 12.1 H Lymphocytes # (Manual) 0.6 L Monocytes # (Manual) Eosinophils # (Manual) Basophils # (Manual) PT INR Fibrinogen dRVVT Confirm Interp Factor V Activity POC ABG pH POC ABG pCO2 POC ABG pO2 ABG pO2 ABG HCO3 ABG Base Excess ABG Hemoglobin Oxyhemoglobin Sodium 133 L Potassium 3.4 L Chloride 92.5 L Carbon Dioxide 21 L BUN 33 H Creatinine 3.0 H Glucose POC Glucose Lactic Acid Calcium 6.6 L Phosphorus Magnesium 1.40 L Direct Bilirubin 0.9 H AST ALT Alkaline Phosphatase Lactate Dehydrogenase Troponin T C-Reactive Protein Total Protein 4.3 L Albumin 1.3 L Prealbumin Triglycerides Cholesterol LDL Cholesterol Direct HDL Cholesterol PTH Intact Urine pH Urine WBC (Auto) Urine Creatinine Urine Total Protein Fluid Total Protein Vancomycin Trough Rheumatoid Factor Complement C4 Miscellaneous Test Crossmatch 09/29/16 09/29/16 09/30/16 17:52 20:12 00:07 WBC RBC Hgb Hct MCV MCH MCHC RDW Plt Count Lymph % (Auto) [place] % (Auto) Lymph # [place] # Baso # Seg Neutrophils % Seg Neuts % (Manual) Lymphocytes % (Manual) Monocytes % (Manual) Eosinophils % (Manual) Basophils % (Manual) Nucleated RBC % Seg Neutrophils # Seg Neutrophils # Man Lymphocytes # (Manual) Monocytes # (Manual) Eosinophils # (Manual) Basophils # (Manual) PT INR Fibrinogen dRVVT Confirm Interp Factor V Activity POC ABG pH POC ABG pCO2 POC ABG pO2 ABG pO2 ABG HCO3 ABG Base Excess ABG Hemoglobin Oxyhemoglobin Sodium Potassium Chloride Carbon Dioxide BUN Creatinine Glucose POC Glucose 50 L 51 L Lactic Acid Calcium Phosphorus Magnesium Direct Bilirubin AST ALT Alkaline Phosphatase Lactate Dehydrogenase Troponin T 0.204 H* C-Reactive Protein Total Protein Albumin Prealbumin Triglycerides Cholesterol 31 L LDL Cholesterol Direct 4 L HDL Cholesterol 3 L PTH Intact Urine pH Urine WBC (Auto) Urine Creatinine Urine Total Protein Fluid Total Protein Vancomycin Trough Rheumatoid Factor Complement C4 Miscellaneous Test Crossmatch 09/30/16 09/30/16 09/30/16 01:30 05:15 06:10 WBC RBC Hgb Hct MCV MCH MCHC RDW Plt Count Lymph % (Auto) [place] % (Auto) Lymph # [place] # Baso # Seg Neutrophils % Seg Neuts % (Manual) Lymphocytes % (Manual) Monocytes % (Manual) Eosinophils % (Manual) Basophils % (Manual) Nucleated RBC % Seg Neutrophils # Seg Neutrophils # Man Lymphocytes # (Manual) Monocytes # (Manual) Eosinophils # (Manual) Basophils # (Manual) PT INR Fibrinogen dRVVT Confirm Interp Factor V Activity POC ABG pH POC ABG pCO2 POC ABG pO2 ABG pO2 ABG HCO3 ABG Base Excess ABG Hemoglobin Oxyhemoglobin Sodium 133 L Potassium 3.2 L Chloride 93.2 L Carbon Dioxide 19 L BUN 36 H Creatinine 3.2 H Glucose 104 H POC Glucose 167 H 146 H Lactic Acid Calcium 6.4 L Phosphorus Magnesium 1.60 L Direct Bilirubin AST ALT Alkaline Phosphatase Lactate Dehydrogenase Troponin T C-Reactive Protein Total Protein Albumin Prealbumin Triglycerides Cholesterol LDL Cholesterol Direct HDL Cholesterol PTH Intact Urine pH Urine WBC (Auto) Urine Creatinine Urine Total Protein Fluid Total Protein Vancomycin Trough Rheumatoid Factor Complement C4 Miscellaneous Test Crossmatch 09/30/16 09/30/16 09/30/16 11:26 13:39 18:38 WBC RBC Hgb Hct MCV MCH MCHC RDW Plt Count Lymph % (Auto) [place] % (Auto) Lymph # [place] # Baso # Seg Neutrophils % Seg Neuts % (Manual) Lymphocytes % (Manual) Monocytes % (Manual) Eosinophils % (Manual) Basophils % (Manual) Nucleated RBC % Seg Neutrophils # Seg Neutrophils # Man Lymphocytes # (Manual) Monocytes # (Manual) Eosinophils # (Manual) Basophils # (Manual) PT INR Fibrinogen dRVVT Confirm Interp Factor V Activity POC ABG pH 7.479 H POC ABG pCO2 29.8 L POC ABG pO2 117 H ABG pO2 ABG HCO3 ABG Base Excess ABG Hemoglobin Oxyhemoglobin Sodium Potassium Chloride Carbon Dioxide BUN Creatinine Glucose POC Glucose 140 H 122 H Lactic Acid Calcium Phosphorus Magnesium Direct Bilirubin AST ALT Alkaline Phosphatase Lactate Dehydrogenase Troponin T C-Reactive Protein Total Protein Albumin Prealbumin Triglycerides Cholesterol LDL Cholesterol Direct HDL Cholesterol PTH Intact Urine pH Urine WBC (Auto) Urine Creatinine Urine Total Protein Fluid Total Protein Vancomycin Trough Rheumatoid Factor Complement C4 Miscellaneous Test Crossmatch 10/01/16 10/01/16 10/01/16 06:00 06:00 12:37 WBC 12.6 H RBC 2.75 L Hgb 7.3 L Hct 23.3 L MCV MCH 27 L MCHC RDW 20.6 H Plt Count 72 L Lymph % (Auto) [place] % (Auto) Lymph # [place] # Baso # Seg Neutrophils % Seg Neuts % (Manual) 31.0 L Lymphocytes % (Manual) 8.0 L Monocytes % (Manual) Eosinophils % (Manual) Basophils % (Manual) Nucleated RBC % 3.0 H Seg Neutrophils # Seg Neutrophils # Man Lymphocytes # (Manual) 1.0 L Monocytes # (Manual) Eosinophils # (Manual) Basophils # (Manual) PT INR Fibrinogen dRVVT Confirm Interp Factor V Activity POC ABG pH POC ABG pCO2 POC ABG pO2 ABG pO2 ABG HCO3 ABG Base Excess ABG Hemoglobin Oxyhemoglobin Sodium 127 L Potassium Chloride 86.8 L Carbon Dioxide 20 L BUN 42 H Creatinine 3.5 H Glucose POC Glucose 65 L Lactic Acid Calcium 7.0 L Phosphorus Magnesium Direct Bilirubin AST ALT Alkaline Phosphatase Lactate Dehydrogenase Troponin T C-Reactive Protein Total Protein Albumin Prealbumin Triglycerides Cholesterol LDL Cholesterol Direct HDL Cholesterol PTH Intact Urine pH Urine WBC (Auto) Urine Creatinine Urine Total Protein Fluid Total Protein Vancomycin Trough Rheumatoid Factor Complement C4 Miscellaneous Test Crossmatch 10/01/16 10/01/16 10/02/16 17:39 23:32 00:59 WBC RBC Hgb Hct MCV MCH MCHC RDW Plt Count Lymph % (Auto) [place] % (Auto) Lymph # [place] # Baso # Seg Neutrophils % Seg Neuts % (Manual) Lymphocytes % (Manual) Monocytes % (Manual) Eosinophils % (Manual) Basophils % (Manual) Nucleated RBC % Seg Neutrophils # Seg Neutrophils # Man Lymphocytes # (Manual) Monocytes # (Manual) Eosinophils # (Manual) Basophils # (Manual) PT INR Fibrinogen dRVVT Confirm Interp Factor V Activity POC ABG pH POC ABG pCO2 POC ABG pO2 ABG pO2 ABG HCO3 ABG Base Excess ABG Hemoglobin Oxyhemoglobin Sodium Potassium Chloride Carbon Dioxide BUN Creatinine Glucose POC Glucose 107 H 52 L 145 H Lactic Acid Calcium Phosphorus Magnesium Direct Bilirubin AST ALT Alkaline Phosphatase Lactate Dehydrogenase Troponin T C-Reactive Protein Total Protein Albumin Prealbumin Triglycerides Cholesterol LDL Cholesterol Direct HDL Cholesterol PTH Intact Urine pH Urine WBC (Auto) Urine Creatinine Urine Total Protein Fluid Total Protein Vancomycin Trough Rheumatoid Factor Complement C4 Miscellaneous Test Crossmatch 10/02/16 10/02/16 10/02/16 10:30 10:50 10:50 WBC 14.7 H RBC 2.76 L Hgb 7.4 L Hct 23.6 L MCV MCH 27 L MCHC RDW 20.2 H Plt Count 79 L Lymph % (Auto) [place] % (Auto) Lymph # [place] # Baso # Seg Neutrophils % Seg Neuts % (Manual) 86.0 H Lymphocytes % (Manual) 6.0 L Monocytes % (Manual) Eosinophils % (Manual) Basophils % (Manual) Nucleated RBC % Seg Neutrophils # Seg Neutrophils # Man 12.6 H Lymphocytes # (Manual) 0.9 L Monocytes # (Manual) Eosinophils # (Manual) Basophils # (Manual) PT INR Fibrinogen dRVVT Confirm Interp Factor V Activity POC ABG pH 7.486 H POC ABG pCO2 30.1 L POC ABG pO2 108 H ABG pO2 ABG HCO3 ABG Base Excess ABG Hemoglobin Oxyhemoglobin Sodium 131 L Potassium 3.4 L Chloride 89.9 L Carbon Dioxide BUN 26 H Creatinine 2.6 H Glucose POC Glucose Lactic Acid Calcium 7.0 L Phosphorus Magnesium Direct Bilirubin AST ALT Alkaline Phosphatase Lactate Dehydrogenase Troponin T C-Reactive Protein Total Protein Albumin Prealbumin Triglycerides Cholesterol LDL Cholesterol Direct HDL Cholesterol PTH Intact Urine pH Urine WBC (Auto) Urine Creatinine Urine Total Protein Fluid Total Protein Vancomycin Trough Rheumatoid Factor Complement C4 Miscellaneous Test Crossmatch 10/02/16 10/03/16 10/03/16 23:45 00:45 05:10 WBC 12.9 H RBC 2.77 L Hgb 7.6 L Hct 23.7 L MCV MCH 27 L MCHC RDW 19.7 H Plt Count 89 L Lymph % (Auto) [place] % (Auto) Lymph # [place] # Baso # Seg Neutrophils % Seg Neuts % (Manual) Lymphocytes % (Manual) 8.0 L Monocytes % (Manual) Eosinophils % (Manual) Basophils % (Manual) Nucleated RBC % Seg Neutrophils # 11.9 H Seg Neutrophils # Man Lymphocytes # (Manual) 1.0 L Monocytes # (Manual) Eosinophils # (Manual) Basophils # (Manual) PT INR Fibrinogen dRVVT Confirm Interp Factor V Activity POC ABG pH POC ABG pCO2 POC ABG pO2 ABG pO2 ABG HCO3 ABG Base Excess ABG Hemoglobin Oxyhemoglobin Sodium Potassium Chloride Carbon Dioxide BUN Creatinine Glucose POC Glucose 55 L 199 H Lactic Acid Calcium Phosphorus Magnesium Direct Bilirubin AST ALT Alkaline Phosphatase Lactate Dehydrogenase Troponin T C-Reactive Protein Total Protein Albumin Prealbumin Triglycerides Cholesterol LDL Cholesterol Direct HDL Cholesterol PTH Intact Urine pH Urine WBC (Auto) Urine Creatinine Urine Total Protein Fluid Total Protein Vancomycin Trough Rheumatoid Factor Complement C4 Miscellaneous Test Crossmatch 10/03/16 10/03/16 10/03/16 05:10 12:14 13:18 WBC RBC Hgb Hct MCV MCH MCHC RDW Plt Count Lymph % (Auto) [place] % (Auto) Lymph # [place] # Baso # Seg Neutrophils % Seg Neuts % (Manual) Lymphocytes % (Manual) Monocytes % (Manual) Eosinophils % (Manual) Basophils % (Manual) Nucleated RBC % Seg Neutrophils # Seg Neutrophils # Man Lymphocytes # (Manual) Monocytes # (Manual) Eosinophils # (Manual) Basophils # (Manual) PT INR Fibrinogen dRVVT Confirm Interp Factor V Activity POC ABG pH POC ABG pCO2 POC ABG pO2 ABG pO2 ABG HCO3 ABG Base Excess ABG Hemoglobin Oxyhemoglobin Sodium 129 L Potassium 3.3 L Chloride 88.8 L Carbon Dioxide 20 L BUN 29 H Creatinine 2.8 H Glucose POC Glucose 68 L 127 H Lactic Acid Calcium 7.2 L Phosphorus Magnesium Direct Bilirubin AST ALT Alkaline Phosphatase Lactate Dehydrogenase Troponin T C-Reactive Protein Total Protein Albumin Prealbumin Triglycerides Cholesterol LDL Cholesterol Direct HDL Cholesterol PTH Intact Urine pH Urine WBC (Auto) Urine Creatinine Urine Total Protein Fluid Total Protein Vancomycin Trough Rheumatoid Factor Complement C4 Miscellaneous Test Crossmatch 10/03/16 10/03/16 10/03/16 14:42 18:21 19:09 WBC RBC Hgb Hct MCV MCH MCHC RDW Plt Count Lymph % (Auto) [place] % (Auto) Lymph # [place] # Baso # Seg Neutrophils % Seg Neuts % (Manual) Lymphocytes % (Manual) Monocytes % (Manual) Eosinophils % (Manual) Basophils % (Manual) Nucleated RBC % Seg Neutrophils # Seg Neutrophils # Man Lymphocytes # (Manual) Monocytes # (Manual) Eosinophils # (Manual) Basophils # (Manual) PT INR Fibrinogen dRVVT Confirm Interp Factor V Activity POC ABG pH 7.499 H POC ABG pCO2 28.4 L POC ABG pO2 44 L ABG pO2 ABG HCO3 ABG Base Excess ABG Hemoglobin Oxyhemoglobin Sodium Potassium Chloride Carbon Dioxide BUN Creatinine Glucose POC Glucose 64 L 205 H Lactic Acid Calcium Phosphorus Magnesium Direct Bilirubin AST ALT Alkaline Phosphatase Lactate Dehydrogenase Troponin T C-Reactive Protein Total Protein Albumin Prealbumin Triglycerides Cholesterol LDL Cholesterol Direct HDL Cholesterol PTH Intact Urine pH Urine WBC (Auto) Urine Creatinine Urine Total Protein Fluid Total Protein Vancomycin Trough Rheumatoid Factor Complement C4 Miscellaneous Test Crossmatch 10/03/16 10/04/16 10/04/16 23:33 04:18 06:30 WBC RBC 2.54 L Hgb 7.1 L Hct 21.7 L MCV MCH MCHC RDW 19.5 H Plt Count 76 L Lymph % (Auto) [place] % (Auto) Lymph # [place] # Baso # Seg Neutrophils % Seg Neuts % (Manual) 88.0 H Lymphocytes % (Manual) 6.0 L Monocytes % (Manual) Eosinophils % (Manual) Basophils % (Manual) Nucleated RBC % Seg Neutrophils # Seg Neutrophils # Man 8.8 H Lymphocytes # (Manual) 0.6 L Monocytes # (Manual) Eosinophils # (Manual) Basophils # (Manual) PT INR Fibrinogen dRVVT Confirm Interp Factor V Activity POC ABG pH 7.461 H POC ABG pCO2 33.6 L POC ABG pO2 211 H ABG pO2 ABG HCO3 ABG Base Excess ABG Hemoglobin Oxyhemoglobin Sodium Potassium Chloride Carbon Dioxide BUN Creatinine Glucose POC Glucose 136 H Lactic Acid Calcium Phosphorus Magnesium Direct Bilirubin AST ALT Alkaline Phosphatase Lactate Dehydrogenase Troponin T C-Reactive Protein Total Protein Albumin Prealbumin Triglycerides Cholesterol LDL Cholesterol Direct HDL Cholesterol PTH Intact Urine pH Urine WBC (Auto) Urine Creatinine Urine Total Protein Fluid Total Protein Vancomycin Trough Rheumatoid Factor Complement C4 Miscellaneous Test Crossmatch 10/04/16 10/04/16 10/04/16 06:30 11:45 17:54 WBC RBC Hgb Hct MCV MCH MCHC RDW Plt Count Lymph % (Auto) [place] % (Auto) Lymph # [place] # Baso # Seg Neutrophils % Seg Neuts % (Manual) Lymphocytes % (Manual) Monocytes % (Manual) Eosinophils % (Manual) Basophils % (Manual) Nucleated RBC % Seg Neutrophils # Seg Neutrophils # Man Lymphocytes # (Manual) Monocytes # (Manual) Eosinophils # (Manual) Basophils # (Manual) PT INR Fibrinogen dRVVT Confirm Interp Factor V Activity POC ABG pH POC ABG pCO2 POC ABG pO2 ABG pO2 ABG HCO3 ABG Base Excess ABG Hemoglobin Oxyhemoglobin Sodium 128 L Potassium Chloride 87.4 L Carbon Dioxide 20 L BUN 34 H Creatinine 2.9 H Glucose 127 H POC Glucose 158 H 160 H Lactic Acid Calcium 7.4 L Phosphorus Magnesium Direct Bilirubin AST ALT Alkaline Phosphatase Lactate Dehydrogenase Troponin T C-Reactive Protein Total Protein Albumin Prealbumin Triglycerides Cholesterol LDL Cholesterol Direct HDL Cholesterol PTH Intact Urine pH Urine WBC (Auto) Urine Creatinine Urine Total Protein Fluid Total Protein Vancomycin Trough Rheumatoid Factor Complement C4 Miscellaneous Test Crossmatch 10/04/16 10/05/16 10/05/16 23:25 04:30 05:00 WBC RBC 2.64 L Hgb 7.5 L Hct 22.6 L MCV MCH MCHC RDW 19.3 H Plt Count 80 L Lymph % (Auto) [place] % (Auto) Lymph # [place] # Baso # Seg Neutrophils % Seg Neuts % (Manual) Lymphocytes % (Manual) 12.0 L Monocytes % (Manual) Eosinophils % (Manual) Basophils % (Manual) Nucleated RBC % Seg Neutrophils # Seg Neutrophils # Man Lymphocytes # (Manual) Monocytes # (Manual) Eosinophils # (Manual) Basophils # (Manual) PT INR Fibrinogen dRVVT Confirm Interp Factor V Activity POC ABG pH 7.475 H POC ABG pCO2 33.3 L POC ABG pO2 140 H ABG pO2 ABG HCO3 ABG Base Excess ABG Hemoglobin Oxyhemoglobin Sodium Potassium Chloride Carbon Dioxide BUN Creatinine Glucose POC Glucose 141 H Lactic Acid Calcium Phosphorus Magnesium Direct Bilirubin AST ALT Alkaline Phosphatase Lactate Dehydrogenase Troponin T C-Reactive Protein Total Protein Albumin Prealbumin Triglycerides Cholesterol LDL Cholesterol Direct HDL Cholesterol PTH Intact Urine pH Urine WBC (Auto) Urine Creatinine Urine Total Protein Fluid Total Protein Vancomycin Trough Rheumatoid Factor Complement C4 Miscellaneous Test Crossmatch 10/05/16 10/05/16 10/05/16 05:00 05:09 12:58 WBC RBC Hgb Hct MCV MCH MCHC RDW Plt Count Lymph % (Auto) [place] % (Auto) Lymph # [place] # Baso # Seg Neutrophils % Seg Neuts % (Manual) Lymphocytes % (Manual) Monocytes % (Manual) Eosinophils % (Manual) Basophils % (Manual) Nucleated RBC % Seg Neutrophils # Seg Neutrophils # Man Lymphocytes # (Manual) Monocytes # (Manual) Eosinophils # (Manual) Basophils # (Manual) PT INR Fibrinogen dRVVT Confirm Interp Factor V Activity POC ABG pH POC ABG pCO2 POC ABG pO2 ABG pO2 ABG HCO3 ABG Base Excess ABG Hemoglobin Oxyhemoglobin Sodium 131 L Potassium Chloride 94.0 L Carbon Dioxide 20 L BUN 22 H Creatinine 2.0 H Glucose 123 H POC Glucose 166 H 179 H Lactic Acid Calcium 7.7 L Phosphorus 2.20 L D Magnesium Direct Bilirubin AST ALT Alkaline Phosphatase Lactate Dehydrogenase Troponin T C-Reactive Protein Total Protein Albumin Prealbumin Triglycerides Cholesterol LDL Cholesterol Direct HDL Cholesterol PTH Intact Urine pH Urine WBC (Auto) Urine Creatinine Urine Total Protein Fluid Total Protein Vancomycin Trough Rheumatoid Factor Complement C4 Miscellaneous Test Crossmatch 10/05/16 10/05/16 10/05/16 15:50 18:53 23:12 WBC RBC Hgb Hct MCV MCH MCHC RDW Plt Count Lymph % (Auto) [place] % (Auto) Lymph # [place] # Baso # Seg Neutrophils % Seg Neuts % (Manual) Lymphocytes % (Manual) Monocytes % (Manual) Eosinophils % (Manual) Basophils % (Manual) Nucleated RBC % Seg Neutrophils # Seg Neutrophils # Man Lymphocytes # (Manual) Monocytes # (Manual) Eosinophils # (Manual) Basophils # (Manual) PT INR Fibrinogen dRVVT Confirm Interp Factor V Activity POC ABG pH POC ABG pCO2 POC ABG pO2 ABG pO2 ABG HCO3 ABG Base Excess ABG Hemoglobin Oxyhemoglobin Sodium Potassium Chloride Carbon Dioxide BUN Creatinine Glucose POC Glucose 150 H 164 H Lactic Acid Calcium Phosphorus Magnesium Direct Bilirubin AST ALT Alkaline Phosphatase Lactate Dehydrogenase Troponin T C-Reactive Protein Total Protein Albumin Prealbumin Triglycerides Cholesterol LDL Cholesterol Direct HDL Cholesterol PTH Intact Urine pH Urine WBC (Auto) Urine Creatinine Urine Total Protein Fluid Total Protein Vancomycin Trough Rheumatoid Factor Complement C4 Miscellaneous Test Crossmatch See Detail 10/06/16 10/06/16 10/06/16 03:50 03:50 04:53 WBC RBC 3.00 L Hgb 8.6 L Hct 25.8 L MCV MCH MCHC RDW 17.9 H Plt Count 65 L Lymph % (Auto) [place] % (Auto) Lymph # [place] # Baso # Seg Neutrophils % Seg Neuts % (Manual) 30.0 L Lymphocytes % (Manual) 5.0 L Monocytes % (Manual) Eosinophils % (Manual) Basophils % (Manual) Nucleated RBC % Seg Neutrophils # Seg Neutrophils # Man Lymphocytes # (Manual) 0.4 L Monocytes # (Manual) Eosinophils # (Manual) Basophils # (Manual) PT INR Fibrinogen dRVVT Confirm Interp Factor V Activity POC ABG pH 7.310 L POC ABG pCO2 49.0 H POC ABG pO2 ABG pO2 ABG HCO3 ABG Base Excess ABG Hemoglobin Oxyhemoglobin Sodium 133 L Potassium Chloride 95.9 L Carbon Dioxide BUN 26 H Creatinine 2.0 H Glucose 116 H POC Glucose Lactic Acid Calcium 7.8 L Phosphorus Magnesium Direct Bilirubin AST ALT Alkaline Phosphatase Lactate Dehydrogenase Troponin T C-Reactive Protein Total Protein Albumin Prealbumin Triglycerides Cholesterol LDL Cholesterol Direct HDL Cholesterol PTH Intact Urine pH Urine WBC (Auto) Urine Creatinine Urine Total Protein Fluid Total Protein Vancomycin Trough Rheumatoid Factor Complement C4 Miscellaneous Test Crossmatch 10/06/16 10/06/16 10/06/16 05:23 11:52 18:34 WBC RBC Hgb Hct MCV MCH MCHC RDW Plt Count Lymph % (Auto) [place] % (Auto) Lymph # [place] # Baso # Seg Neutrophils % Seg Neuts % (Manual) Lymphocytes % (Manual) Monocytes % (Manual) Eosinophils % (Manual) Basophils % (Manual) Nucleated RBC % Seg Neutrophils # Seg Neutrophils # Man Lymphocytes # (Manual) Monocytes # (Manual) Eosinophils # (Manual) Basophils # (Manual) PT INR Fibrinogen dRVVT Confirm Interp Factor V Activity POC ABG pH POC ABG pCO2 POC ABG pO2 ABG pO2 ABG HCO3 ABG Base Excess ABG Hemoglobin Oxyhemoglobin Sodium Potassium Chloride Carbon Dioxide BUN Creatinine Glucose POC Glucose 126 H 116 H 129 H Lactic Acid Calcium Phosphorus Magnesium Direct Bilirubin AST ALT Alkaline Phosphatase Lactate Dehydrogenase Troponin T C-Reactive Protein Total Protein Albumin Prealbumin Triglycerides Cholesterol LDL Cholesterol Direct HDL Cholesterol PTH Intact Urine pH Urine WBC (Auto) Urine Creatinine Urine Total Protein Fluid Total Protein Vancomycin Trough Rheumatoid Factor Complement C4 Miscellaneous Test Crossmatch 10/07/16 10/07/16 10/07/16 03:45 05:00 10:00 WBC 17.0 H RBC 2.68 L Hgb 7.3 L Hct 25.3 L MCV MCH 27 L MCHC 29 L RDW 19.6 H Plt Count 74 L Lymph % (Auto) [place] % (Auto) Lymph # [place] # Baso # Seg Neutrophils % Seg Neuts % (Manual) Lymphocytes % (Manual) 12.0 L Monocytes % (Manual) Eosinophils % (Manual) Basophils % (Manual) Nucleated RBC % 4.0 H Seg Neutrophils # Seg Neutrophils # Man 10.7 H Lymphocytes # (Manual) Monocytes # (Manual) Eosinophils # (Manual) Basophils # (Manual) PT INR Fibrinogen dRVVT Confirm Interp Factor V Activity POC ABG pH POC ABG pCO2 POC ABG pO2 ABG pO2 ABG HCO3 ABG Base Excess ABG Hemoglobin Oxyhemoglobin Sodium 130 L Potassium 3.2 L Chloride 93.9 L Carbon Dioxide 20 L BUN 44 H Creatinine 2.7 H Glucose 129 H POC Glucose Lactic Acid Calcium 7.4 L Phosphorus Magnesium Direct Bilirubin AST ALT 6 L Alkaline Phosphatase 195 H Lactate Dehydrogenase Troponin T C-Reactive Protein Total Protein 4.9 L Albumin 1.0 L Prealbumin Triglycerides Cholesterol LDL Cholesterol Direct HDL Cholesterol PTH Intact Urine pH Urine WBC (Auto) Urine Creatinine Urine Total Protein Fluid Total Protein Vancomycin Trough Rheumatoid Factor Complement C4 Miscellaneous Test Flexitest 1 H Crossmatch 10/07/16 10/07/16 10/07/16 10:00 11:24 18:10 WBC RBC Hgb Hct MCV MCH MCHC RDW Plt Count Lymph % (Auto) [place] % (Auto) Lymph # [place] # Baso # Seg Neutrophils % Seg Neuts % (Manual) Lymphocytes % (Manual) Monocytes % (Manual) Eosinophils % (Manual) Basophils % (Manual) Nucleated RBC % Seg Neutrophils # Seg Neutrophils # Man Lymphocytes # (Manual) Monocytes # (Manual) Eosinophils # (Manual) Basophils # (Manual) PT INR Fibrinogen dRVVT Confirm Interp Factor V Activity POC ABG pH POC ABG pCO2 POC ABG pO2 ABG pO2 ABG HCO3 ABG Base Excess ABG Hemoglobin Oxyhemoglobin Sodium Potassium Chloride Carbon Dioxide BUN Creatinine Glucose POC Glucose 116 H 130 H Lactic Acid Calcium Phosphorus Magnesium Direct Bilirubin AST ALT Alkaline Phosphatase Lactate Dehydrogenase Troponin T C-Reactive Protein 19.40 H Total Protein Albumin Prealbumin Triglycerides Cholesterol LDL Cholesterol Direct HDL Cholesterol PTH Intact Urine pH Urine WBC (Auto) Urine Creatinine Urine Total Protein Fluid Total Protein Vancomycin Trough Rheumatoid Factor Complement C4 Miscellaneous Test Crossmatch 10/07/16 10/08/16 10/08/16 18:30 00:00 04:00 WBC RBC Hgb Hct MCV MCH MCHC RDW Plt Count Lymph % (Auto) [place] % (Auto) Lymph # [place] # Baso # Seg Neutrophils % Seg Neuts % (Manual) Lymphocytes % (Manual) Monocytes % (Manual) Eosinophils % (Manual) Basophils % (Manual) Nucleated RBC % Seg Neutrophils # Seg Neutrophils # Man Lymphocytes # (Manual) Monocytes # (Manual) Eosinophils # (Manual) Basophils # (Manual) PT INR Fibrinogen dRVVT Confirm Interp Factor V Activity POC ABG pH POC ABG pCO2 POC ABG pO2 ABG pO2 ABG HCO3 ABG Base Excess ABG Hemoglobin Oxyhemoglobin Sodium 132 L Potassium 3.3 L Chloride 93.6 L Carbon Dioxide 17 L BUN 59 H Creatinine 2.7 H Glucose 121 H POC Glucose 122 H Lactic Acid Calcium 7.6 L Phosphorus Magnesium Direct Bilirubin AST ALT Alkaline Phosphatase Lactate Dehydrogenase Troponin T C-Reactive Protein Total Protein Albumin Prealbumin Triglycerides Cholesterol LDL Cholesterol Direct HDL Cholesterol PTH Intact Urine pH Urine WBC (Auto) > 182.0 H Urine Creatinine Urine Total Protein Fluid Total Protein Vancomycin Trough Rheumatoid Factor Complement C4 Miscellaneous Test Crossmatch 10/08/16 10/08/16 10/08/16 04:30 05:30 11:51 WBC RBC 5.15 H Hgb 14.4 H D Hct 44.5 H D MCV MCH MCHC RDW 19.5 H Plt Count 56 L Lymph % (Auto) [place] % (Auto) Lymph # [place] # Baso # Seg Neutrophils % Seg Neuts % (Manual) 24.0 L Lymphocytes % (Manual) 8.0 L Monocytes % (Manual) Eosinophils % (Manual) Basophils % (Manual) Nucleated RBC % 9.0 H Seg Neutrophils # Seg Neutrophils # Man Lymphocytes # (Manual) 0.7 L Monocytes # (Manual) Eosinophils # (Manual) Basophils # (Manual) PT INR Fibrinogen dRVVT Confirm Interp Factor V Activity POC ABG pH POC ABG pCO2 POC ABG pO2 ABG pO2 ABG HCO3 ABG Base Excess ABG Hemoglobin Oxyhemoglobin Sodium Potassium Chloride Carbon Dioxide BUN Creatinine Glucose POC Glucose 125 H 150 H Lactic Acid Calcium Phosphorus Magnesium Direct Bilirubin AST ALT Alkaline Phosphatase Lactate Dehydrogenase Troponin T C-Reactive Protein Total Protein Albumin Prealbumin Triglycerides Cholesterol LDL Cholesterol Direct HDL Cholesterol PTH Intact Urine pH Urine WBC (Auto) Urine Creatinine Urine Total Protein Fluid Total Protein Vancomycin Trough Rheumatoid Factor Complement C4 Miscellaneous Test Crossmatch 10/08/16 10/08/16 10/08/16 12:49 17:07 19:30 WBC RBC Hgb 7.1 L D Hct 22.4 L D MCV MCH MCHC RDW Plt Count Lymph % (Auto) [place] % (Auto) Lymph # [place] # Baso # Seg Neutrophils % Seg Neuts % (Manual) Lymphocytes % (Manual) Monocytes % (Manual) Eosinophils % (Manual) Basophils % (Manual) Nucleated RBC % Seg Neutrophils # Seg Neutrophils # Man Lymphocytes # (Manual) Monocytes # (Manual) Eosinophils # (Manual) Basophils # (Manual) PT INR Fibrinogen dRVVT Confirm Interp Factor V Activity POC ABG pH POC ABG pCO2 28.2 L POC ABG pO2 111 H ABG pO2 ABG HCO3 ABG Base Excess ABG Hemoglobin Oxyhemoglobin Sodium Potassium Chloride Carbon Dioxide BUN Creatinine Glucose POC Glucose 145 H Lactic Acid Calcium Phosphorus Magnesium Direct Bilirubin AST ALT Alkaline Phosphatase Lactate Dehydrogenase Troponin T C-Reactive Protein Total Protein Albumin Prealbumin Triglycerides Cholesterol LDL Cholesterol Direct HDL Cholesterol PTH Intact Urine pH Urine WBC (Auto) Urine Creatinine Urine Total Protein Fluid Total Protein Vancomycin Trough Rheumatoid Factor Complement C4 Miscellaneous Test Crossmatch 10/08/16 10/09/16 10/09/16 19:30 03:45 03:45 WBC 12.6 H RBC 2.36 L Hgb 6.7 L Hct 21.1 L MCV MCH MCHC RDW 19.5 H Plt Count 75 L Lymph % (Auto) [place] % (Auto) Lymph # [place] # Baso # Seg Neutrophils % Seg Neuts % (Manual) Lymphocytes % (Manual) Monocytes % (Manual) 10.0 H Eosinophils % (Manual) Basophils % (Manual) Nucleated RBC % 3.0 H Seg Neutrophils # Seg Neutrophils # Man Lymphocytes # (Manual) Monocytes # (Manual) 1.3 H Eosinophils # (Manual) Basophils # (Manual) PT 18.0 H INR 1.41 H Fibrinogen dRVVT Confirm Interp Factor V Activity POC ABG pH POC ABG pCO2 POC ABG pO2 ABG pO2 ABG HCO3 ABG Base Excess ABG Hemoglobin Oxyhemoglobin Sodium 135 L Potassium Chloride Carbon Dioxide 17 L BUN 81 H Creatinine 3.2 H Glucose 109 H POC Glucose Lactic Acid Calcium 7.4 L Phosphorus 4.60 H D Magnesium Direct Bilirubin AST ALT Alkaline Phosphatase Lactate Dehydrogenase Troponin T C-Reactive Protein Total Protein Albumin Prealbumin Triglycerides Cholesterol LDL Cholesterol Direct HDL Cholesterol PTH Intact Urine pH Urine WBC (Auto) Urine Creatinine Urine Total Protein Fluid Total Protein Vancomycin Trough Rheumatoid Factor Complement C4 Miscellaneous Test Crossmatch 08/10/09/16 10/09/16 03:45 05:14 07:20 WBC RBC Hgb Hct MCV MCH MCHC RDW Plt Count Lymph % (Auto) [place] % (Auto) Lymph # [place] # Baso # Seg Neutrophils % Seg Neuts % (Manual) Lymphocytes % (Manual) Monocytes % (Manual) Eosinophils % (Manual) Basophils % (Manual) Nucleated RBC % Seg Neutrophils # Seg Neutrophils # Man Lymphocytes # (Manual) Monocytes # (Manual) Eosinophils # (Manual) Basophils # (Manual) PT 19.0 H INR 1.51 H Fibrinogen dRVVT Confirm Interp Factor V Activity POC ABG pH POC ABG pCO2 POC ABG pO2 ABG pO2 ABG HCO3 ABG Base Excess ABG Hemoglobin Oxyhemoglobin Sodium Potassium Chloride Carbon Dioxide BUN Creatinine Glucose POC Glucose 151 H Lactic Acid Calcium Phosphorus Magnesium Direct Bilirubin AST ALT Alkaline Phosphatase Lactate Dehydrogenase Troponin T C-Reactive Protein Total Protein Albumin Prealbumin Triglycerides Cholesterol LDL Cholesterol Direct HDL Cholesterol PTH Intact Urine pH Urine WBC (Auto) Urine Creatinine Urine Total Protein Fluid Total Protein Vancomycin Trough Rheumatoid Factor Complement C4 Miscellaneous Test Crossmatch See Detail 10/09/16 10/09/16 10/09/16 11:46 16:20 16:43 WBC RBC Hgb 7.2 L Hct 22.2 L MCV MCH MCHC RDW Plt Count Lymph % (Auto) [place] % (Auto) Lymph # [place] # Baso # Seg Neutrophils % Seg Neuts % (Manual) Lymphocytes % (Manual) Monocytes % (Manual) Eosinophils % (Manual) Basophils % (Manual) Nucleated RBC % Seg Neutrophils # Seg Neutrophils # Man Lymphocytes # (Manual) Monocytes # (Manual) Eosinophils # (Manual) Basophils # (Manual) PT INR Fibrinogen dRVVT Confirm Interp Factor V Activity POC ABG pH POC ABG pCO2 POC ABG pO2 ABG pO2 ABG HCO3 ABG Base Excess ABG Hemoglobin Oxyhemoglobin Sodium Potassium Chloride Carbon Dioxide BUN Creatinine Glucose POC Glucose 133 H 141 H Lactic Acid Calcium Phosphorus Magnesium Direct Bilirubin AST ALT Alkaline Phosphatase Lactate Dehydrogenase Troponin T C-Reactive Protein Total Protein Albumin Prealbumin Triglycerides Cholesterol LDL Cholesterol Direct HDL Cholesterol PTH Intact Urine pH Urine WBC (Auto) Urine Creatinine Urine Total Protein Fluid Total Protein Vancomycin Trough Rheumatoid Factor Complement C4 Miscellaneous Test Crossmatch 10/10/16 10/10/16 10/10/16 05:00 05:00 11:19 WBC 18.5 H RBC 2.19 L Hgb 6.4 L Hct 19.6 L* MCV MCH MCHC RDW 19.3 H Plt Count 93 L Lymph % (Auto) [place] % (Auto) Lymph # [place] # Baso # Seg Neutrophils % Seg Neuts % (Manual) Lymphocytes % (Manual) 10.0 L Monocytes % (Manual) Eosinophils % (Manual) Basophils % (Manual) Nucleated RBC % 4.0 H Seg Neutrophils # Seg Neutrophils # Man 11.3 H Lymphocytes # (Manual) Monocytes # (Manual) Eosinophils # (Manual) Basophils # (Manual) PT INR Fibrinogen dRVVT Confirm Interp Factor V Activity POC ABG pH POC ABG pCO2 POC ABG pO2 ABG pO2 ABG HCO3 ABG Base Excess ABG Hemoglobin Oxyhemoglobin Sodium Potassium 5.7 H D Chloride Carbon Dioxide 16 L BUN 94 H Creatinine 3.1 H Glucose 131 H POC Glucose 153 H Lactic Acid Calcium 8.2 L Phosphorus 5.10 H Magnesium 2.40 H Direct Bilirubin 0.3 H AST ALT < 5 L Alkaline Phosphatase 319 H Lactate Dehydrogenase Troponin T C-Reactive Protein Total Protein 5.1 L Albumin 1.0 L Prealbumin Triglycerides Cholesterol LDL Cholesterol Direct HDL Cholesterol PTH Intact Urine pH Urine WBC (Auto) Urine Creatinine Urine Total Protein Fluid Total Protein Vancomycin Trough Rheumatoid Factor Complement C4 Miscellaneous Test Crossmatch 10/10/16 10/10/16 10/11/16 17:50 23:30 04:15 WBC RBC Hgb Hct MCV MCH MCHC RDW Plt Count Lymph % (Auto) [place] % (Auto) Lymph # [place] # Baso # Seg Neutrophils % Seg Neuts % (Manual) Lymphocytes % (Manual) Monocytes % (Manual) Eosinophils % (Manual) Basophils % (Manual) Nucleated RBC % Seg Neutrophils # Seg Neutrophils # Man Lymphocytes # (Manual) Monocytes # (Manual) Eosinophils # (Manual) Basophils # (Manual) PT INR Fibrinogen dRVVT Confirm Interp Factor V Activity POC ABG pH POC ABG pCO2 POC ABG pO2 ABG pO2 ABG HCO3 ABG Base Excess ABG Hemoglobin Oxyhemoglobin Sodium Potassium Chloride 96.4 L Carbon Dioxide 21 L BUN 57 H Creatinine 2.1 H Glucose 151 H POC Glucose 146 H 141 H Lactic Acid Calcium 8.3 L Phosphorus Magnesium Direct Bilirubin AST ALT Alkaline Phosphatase Lactate Dehydrogenase Troponin T C-Reactive Protein Total Protein Albumin Prealbumin Triglycerides Cholesterol LDL Cholesterol Direct HDL Cholesterol PTH Intact Urine pH Urine WBC (Auto) Urine Creatinine Urine Total Protein Fluid Total Protein Vancomycin Trough Rheumatoid Factor Complement C4 Miscellaneous Test Crossmatch 10/11/16 10/11/16 10/11/16 04:15 04:15 05:30 WBC 28.3 H RBC 3.12 L Hgb 9.3 L Hct 28.7 L D MCV MCH MCHC RDW 17.7 H Plt Count 128 L Lymph % (Auto) [place] % (Auto) Lymph # [place] # Baso # Seg Neutrophils % Seg Neuts % (Manual) Lymphocytes % (Manual) Monocytes % (Manual) Eosinophils % (Manual) Basophils % (Manual) Nucleated RBC % Seg Neutrophils # Seg Neutrophils # Man Lymphocytes # (Manual) Monocytes # (Manual) Eosinophils # (Manual) Basophils # (Manual) PT INR Fibrinogen dRVVT Confirm Interp Factor V Activity POC ABG pH POC ABG pCO2 POC ABG pO2 ABG pO2 ABG HCO3 ABG Base Excess ABG Hemoglobin Oxyhemoglobin Sodium Potassium Chloride Carbon Dioxide BUN Creatinine Glucose POC Glucose 167 H Lactic Acid Calcium Phosphorus Magnesium Direct Bilirubin AST ALT Alkaline Phosphatase Lactate Dehydrogenase Troponin T C-Reactive Protein 15.80 H Total Protein Albumin Prealbumin Triglycerides Cholesterol LDL Cholesterol Direct HDL Cholesterol PTH Intact Urine pH Urine WBC (Auto) Urine Creatinine Urine Total Protein Fluid Total Protein Vancomycin Trough Rheumatoid Factor Complement C4 Miscellaneous Test Crossmatch 10/11/16 10/11/16 10/11/16 11:40 15:49 23:57 WBC RBC Hgb Hct MCV MCH MCHC RDW Plt Count Lymph % (Auto) [place] % (Auto) Lymph # [place] # Baso # Seg Neutrophils % Seg Neuts % (Manual) Lymphocytes % (Manual) Monocytes % (Manual) Eosinophils % (Manual) Basophils % (Manual) Nucleated RBC % Seg Neutrophils # Seg Neutrophils # Man Lymphocytes # (Manual) Monocytes # (Manual) Eosinophils # (Manual) Basophils # (Manual) PT INR Fibrinogen dRVVT Confirm Interp Factor V Activity POC ABG pH POC ABG pCO2 POC ABG pO2 ABG pO2 ABG HCO3 ABG Base Excess ABG Hemoglobin Oxyhemoglobin Sodium Potassium Chloride Carbon Dioxide BUN Creatinine Glucose POC Glucose 139 H 168 H 161 H Lactic Acid Calcium Phosphorus Magnesium Direct Bilirubin AST ALT Alkaline Phosphatase Lactate Dehydrogenase Troponin T C-Reactive Protein Total Protein Albumin Prealbumin Triglycerides Cholesterol LDL Cholesterol Direct HDL Cholesterol PTH Intact Urine pH Urine WBC (Auto) Urine Creatinine Urine Total Protein Fluid Total Protein Vancomycin Trough Rheumatoid Factor Complement C4 Miscellaneous Test Crossmatch 10/12/16 10/12/16 10/12/16 04:40 04:40 05:44 WBC 22.5 H RBC 2.88 L Hgb 8.8 L Hct 26.8 L MCV MCH MCHC RDW 17.8 H Plt Count Lymph % (Auto) [place] % (Auto) Lymph # [place] # Baso # Seg Neutrophils % Seg Neuts % (Manual) Lymphocytes % (Manual) Monocytes % (Manual) Eosinophils % (Manual) Basophils % (Manual) Nucleated RBC % Seg Neutrophils # Seg Neutrophils # Man Lymphocytes # (Manual) Monocytes # (Manual) Eosinophils # (Manual) Basophils # (Manual) PT INR Fibrinogen dRVVT Confirm Interp Factor V Activity POC ABG pH POC ABG pCO2 POC ABG pO2 ABG pO2 ABG HCO3 ABG Base Excess ABG Hemoglobin Oxyhemoglobin Sodium 134 L Potassium Chloride 93.0 L Carbon Dioxide BUN 74 H Creatinine 2.5 H Glucose 137 H POC Glucose 158 H Lactic Acid Calcium 8.2 L Phosphorus Magnesium Direct Bilirubin AST ALT Alkaline Phosphatase Lactate Dehydrogenase Troponin T C-Reactive Protein Total Protein Albumin Prealbumin Triglycerides Cholesterol LDL Cholesterol Direct HDL Cholesterol PTH Intact Urine pH Urine WBC (Auto) Urine Creatinine Urine Total Protein Fluid Total Protein Vancomycin Trough Rheumatoid Factor Complement C4 Miscellaneous Test Crossmatch 10/12/16 10/12/16 10/12/16 12:27 18:18 23:46 WBC RBC Hgb Hct MCV MCH MCHC RDW Plt Count Lymph % (Auto) [place] % (Auto) Lymph # [place] # Baso # Seg Neutrophils % Seg Neuts % (Manual) Lymphocytes % (Manual) Monocytes % (Manual) Eosinophils % (Manual) Basophils % (Manual) Nucleated RBC % Seg Neutrophils # Seg Neutrophils # Man Lymphocytes # (Manual) Monocytes # (Manual) Eosinophils # (Manual) Basophils # (Manual) PT INR Fibrinogen dRVVT Confirm Interp Factor V Activity POC ABG pH POC ABG pCO2 POC ABG pO2 ABG pO2 ABG HCO3 ABG Base Excess ABG Hemoglobin Oxyhemoglobin Sodium Potassium Chloride Carbon Dioxide BUN Creatinine Glucose POC Glucose 153 H 140 H 150 H Lactic Acid Calcium Phosphorus Magnesium Direct Bilirubin AST ALT Alkaline Phosphatase Lactate Dehydrogenase Troponin T C-Reactive Protein Total Protein Albumin Prealbumin Triglycerides Cholesterol LDL Cholesterol Direct HDL Cholesterol PTH Intact Urine pH Urine WBC (Auto) Urine Creatinine Urine Total Protein Fluid Total Protein Vancomycin Trough Rheumatoid Factor Complement C4 Miscellaneous Test Crossmatch 10/13/16 10/13/16 10/13/16 06:22 09:20 12:29 WBC RBC Hgb Hct MCV MCH MCHC RDW Plt Count Lymph % (Auto) [place] % (Auto) Lymph # [place] # Baso # Seg Neutrophils % Seg Neuts % (Manual) Lymphocytes % (Manual) Monocytes % (Manual) Eosinophils % (Manual) Basophils % (Manual) Nucleated RBC % Seg Neutrophils # Seg Neutrophils # Man Lymphocytes # (Manual) Monocytes # (Manual) Eosinophils # (Manual) Basophils # (Manual) PT INR Fibrinogen dRVVT Confirm Interp Factor V Activity POC ABG pH POC ABG pCO2 POC ABG pO2 ABG pO2 ABG HCO3 ABG Base Excess ABG Hemoglobin Oxyhemoglobin Sodium Potassium Chloride Carbon Dioxide BUN Creatinine Glucose POC Glucose 165 H 193 H Lactic Acid Calcium Phosphorus Magnesium Direct Bilirubin AST ALT Alkaline Phosphatase Lactate Dehydrogenase Troponin T C-Reactive Protein Total Protein Albumin Prealbumin Triglycerides Cholesterol LDL Cholesterol Direct HDL Cholesterol PTH Intact Urine pH Urine WBC (Auto) Urine Creatinine Urine Total Protein Fluid Total Protein Vancomycin Trough Rheumatoid Factor Complement C4 Miscellaneous Test Flexitest 1 H Crossmatch 10/13/16 10/13/16 10/13/16 18:09 Unknown Unknown WBC 23.4 H RBC 2.83 L Hgb 8.7 L Hct 26.1 L MCV MCH MCHC RDW 18.1 H Plt Count Lymph % (Auto) [place] % (Auto) Lymph # [place] # Baso # Seg Neutrophils % Seg Neuts % (Manual) Lymphocytes % (Manual) Monocytes % (Manual) Eosinophils % (Manual) Basophils % (Manual) Nucleated RBC % Seg Neutrophils # Seg Neutrophils # Man Lymphocytes # (Manual) Monocytes # (Manual) Eosinophils # (Manual) Basophils # (Manual) PT INR Fibrinogen dRVVT Confirm Interp Factor V Activity POC ABG pH POC ABG pCO2 POC ABG pO2 ABG pO2 ABG HCO3 ABG Base Excess ABG Hemoglobin Oxyhemoglobin Sodium Potassium Chloride 95.8 L Carbon Dioxide BUN 82 H Creatinine 2.6 H Glucose 152 H POC Glucose 166 H Lactic Acid Calcium Phosphorus Magnesium Direct Bilirubin AST ALT Alkaline Phosphatase Lactate Dehydrogenase Troponin T C-Reactive Protein Total Protein Albumin Prealbumin Triglycerides Cholesterol LDL Cholesterol Direct HDL Cholesterol PTH Intact Urine pH Urine WBC (Auto) Urine Creatinine Urine Total Protein Fluid Total Protein Vancomycin Trough Rheumatoid Factor Complement C4 Miscellaneous Test Crossmatch 10/14/16 10/14/16 10/14/16 05:38 06:35 08:10 WBC 20.7 H RBC 2.81 L Hgb 8.4 L Hct 27.2 L MCV MCH MCHC RDW 19.4 H Plt Count Lymph % (Auto) [place] % (Auto) Lymph # [place] # Baso # Seg Neutrophils % Seg Neuts % (Manual) Lymphocytes % (Manual) Monocytes % (Manual) Eosinophils % (Manual) Basophils % (Manual) Nucleated RBC % Seg Neutrophils # Seg Neutrophils # Man Lymphocytes # (Manual) Monocytes # (Manual) Eosinophils # (Manual) Basophils # (Manual) PT INR Fibrinogen dRVVT Confirm Interp Factor V Activity POC ABG pH POC ABG pCO2 POC ABG pO2 ABG pO2 ABG HCO3 ABG Base Excess ABG Hemoglobin Oxyhemoglobin Sodium Potassium Chloride Carbon Dioxide BUN 58 H Creatinine 1.9 H Glucose 169 H POC Glucose 195 H Lactic Acid Calcium Phosphorus Magnesium Direct Bilirubin AST ALT Alkaline Phosphatase Lactate Dehydrogenase Troponin T C-Reactive Protein Total Protein Albumin Prealbumin Triglycerides Cholesterol LDL Cholesterol Direct HDL Cholesterol PTH Intact Urine pH Urine WBC (Auto) Urine Creatinine Urine Total Protein Fluid Total Protein Vancomycin Trough Rheumatoid Factor Complement C4 Miscellaneous Test Crossmatch 10/14/16 10/14/16 10/14/16 11:44 17:13 23:28 WBC RBC Hgb Hct MCV MCH MCHC RDW Plt Count Lymph % (Auto) [place] % (Auto) Lymph # [place] # Baso # Seg Neutrophils % Seg Neuts % (Manual) Lymphocytes % (Manual) Monocytes % (Manual) Eosinophils % (Manual) Basophils % (Manual) Nucleated RBC % Seg Neutrophils # Seg Neutrophils # Man Lymphocytes # (Manual) Monocytes # (Manual) Eosinophils # (Manual) Basophils # (Manual) PT INR Fibrinogen dRVVT Confirm Interp Factor V Activity POC ABG pH POC ABG pCO2 POC ABG pO2 ABG pO2 ABG HCO3 ABG Base Excess ABG Hemoglobin Oxyhemoglobin Sodium Potassium Chloride Carbon Dioxide BUN Creatinine Glucose POC Glucose 174 H 121 H 151 H Lactic Acid Calcium Phosphorus Magnesium Direct Bilirubin AST ALT Alkaline Phosphatase Lactate Dehydrogenase Troponin T C-Reactive Protein Total Protein Albumin Prealbumin Triglycerides Cholesterol LDL Cholesterol Direct HDL Cholesterol PTH Intact Urine pH Urine WBC (Auto) Urine Creatinine Urine Total Protein Fluid Total Protein Vancomycin Trough Rheumatoid Factor Complement C4 Miscellaneous Test Crossmatch 10/15/16 10/15/16 10/15/16 05:06 12:26 17:48 WBC RBC Hgb Hct MCV MCH MCHC RDW Plt Count Lymph % (Auto) [place] % (Auto) Lymph # [place] # Baso # Seg Neutrophils % Seg Neuts % (Manual) Lymphocytes % (Manual) Monocytes % (Manual) Eosinophils % (Manual) Basophils % (Manual) Nucleated RBC % Seg Neutrophils # Seg Neutrophils # Man Lymphocytes # (Manual) Monocytes # (Manual) Eosinophils # (Manual) Basophils # (Manual) PT INR Fibrinogen dRVVT Confirm Interp Factor V Activity POC ABG pH POC ABG pCO2 POC ABG pO2 ABG pO2 ABG HCO3 ABG Base Excess ABG Hemoglobin Oxyhemoglobin Sodium Potassium Chloride Carbon Dioxide BUN Creatinine Glucose POC Glucose 151 H 149 H 153 H Lactic Acid Calcium Phosphorus Magnesium Direct Bilirubin AST ALT Alkaline Phosphatase Lactate Dehydrogenase Troponin T C-Reactive Protein Total Protein Albumin Prealbumin Triglycerides Cholesterol LDL Cholesterol Direct HDL Cholesterol PTH Intact Urine pH Urine WBC (Auto) Urine Creatinine Urine Total Protein Fluid Total Protein Vancomycin Trough Rheumatoid Factor Complement C4 Miscellaneous Test Crossmatch 10/15/16 10/15/16 10/16/16 Unknown Unknown 00:02 WBC 23.4 H RBC 2.78 L Hgb 8.5 L Hct 25.7 L MCV MCH MCHC RDW 18.7 H Plt Count Lymph % (Auto) [place] % (Auto) Lymph # [place] # Baso # Seg Neutrophils % Seg Neuts % (Manual) Lymphocytes % (Manual) Monocytes % (Manual) Eosinophils % (Manual) Basophils % (Manual) Nucleated RBC % Seg Neutrophils # Seg Neutrophils # Man Lymphocytes # (Manual) Monocytes # (Manual) Eosinophils # (Manual) Basophils # (Manual) PT INR Fibrinogen dRVVT Confirm Interp Factor V Activity POC ABG pH POC ABG pCO2 POC ABG pO2 ABG pO2 ABG HCO3 ABG Base Excess ABG Hemoglobin Oxyhemoglobin Sodium Potassium Chloride Carbon Dioxide BUN 73 H Creatinine 2.3 H Glucose 120 H POC Glucose 137 H Lactic Acid Calcium Phosphorus Magnesium Direct Bilirubin AST ALT Alkaline Phosphatase Lactate Dehydrogenase Troponin T C-Reactive Protein Total Protein Albumin Prealbumin Triglycerides Cholesterol LDL Cholesterol Direct HDL Cholesterol PTH Intact Urine pH Urine WBC (Auto) Urine Creatinine Urine Total Protein Fluid Total Protein Vancomycin Trough Rheumatoid Factor Complement C4 Miscellaneous Test Crossmatch 10/16/16 10/16/16 10/16/16 05:44 06:25 06:25 WBC 22.5 H RBC 2.76 L Hgb 8.3 L Hct 25.2 L MCV MCH MCHC RDW 18.3 H Plt Count Lymph % (Auto) [place] % (Auto) Lymph # [place] # Baso # Seg Neutrophils % Seg Neuts % (Manual) Lymphocytes % (Manual) Monocytes % (Manual) Eosinophils % (Manual) Basophils % (Manual) Nucleated RBC % Seg Neutrophils # Seg Neutrophils # Man Lymphocytes # (Manual) Monocytes # (Manual) Eosinophils # (Manual) Basophils # (Manual) PT INR Fibrinogen dRVVT Confirm Interp Factor V Activity POC ABG pH POC ABG pCO2 POC ABG pO2 ABG pO2 ABG HCO3 ABG Base Excess ABG Hemoglobin Oxyhemoglobin Sodium Potassium Chloride Carbon Dioxide BUN 92 H Creatinine 3.0 H Glucose 138 H POC Glucose 110 H Lactic Acid Calcium Phosphorus Magnesium Direct Bilirubin AST ALT Alkaline Phosphatase Lactate Dehydrogenase Troponin T C-Reactive Protein Total Protein Albumin Prealbumin Triglycerides Cholesterol LDL Cholesterol Direct HDL Cholesterol PTH Intact Urine pH Urine WBC (Auto) Urine Creatinine Urine Total Protein Fluid Total Protein Vancomycin Trough Rheumatoid Factor Complement C4 Miscellaneous Test Crossmatch 10/16/16 10/16/16 10/16/16 11:27 11:48 17:36 WBC RBC Hgb Hct MCV MCH MCHC RDW Plt Count Lymph % (Auto) [place] % (Auto) Lymph # [place] # Baso # Seg Neutrophils % Seg Neuts % (Manual) Lymphocytes % (Manual) Monocytes % (Manual) Eosinophils % (Manual) Basophils % (Manual) Nucleated RBC % Seg Neutrophils # Seg Neutrophils # Man Lymphocytes # (Manual) Monocytes # (Manual) Eosinophils # (Manual) Basophils # (Manual) PT INR Fibrinogen dRVVT Confirm Interp Factor V Activity POC ABG pH 7.582 H POC ABG pCO2 27.4 L POC ABG pO2 110 H ABG pO2 ABG HCO3 ABG Base Excess ABG Hemoglobin Oxyhemoglobin Sodium Potassium Chloride Carbon Dioxide BUN Creatinine Glucose POC Glucose 121 H 133 H Lactic Acid Calcium Phosphorus Magnesium Direct Bilirubin AST ALT Alkaline Phosphatase Lactate Dehydrogenase Troponin T C-Reactive Protein Total Protein Albumin Prealbumin Triglycerides Cholesterol LDL Cholesterol Direct HDL Cholesterol PTH Intact Urine pH Urine WBC (Auto) Urine Creatinine Urine Total Protein Fluid Total Protein Vancomycin Trough Rheumatoid Factor Complement C4 Miscellaneous Test Crossmatch 10/16/16 10/17/16 10/17/16 20:48 04:24 04:24 WBC 21.4 H RBC 2.72 L Hgb 8.0 L Hct 25.2 L MCV MCH MCHC RDW 18.0 H Plt Count Lymph % (Auto) [place] % (Auto) Lymph # [place] # Baso # Seg Neutrophils % Seg Neuts % (Manual) Lymphocytes % (Manual) Monocytes % (Manual) Eosinophils % (Manual) Basophils % (Manual) Nucleated RBC % Seg Neutrophils # Seg Neutrophils # Man Lymphocytes # (Manual) Monocytes # (Manual) Eosinophils # (Manual) Basophils # (Manual) PT INR Fibrinogen dRVVT Confirm Interp Factor V Activity POC ABG pH 7.561 H POC ABG pCO2 24.4 L POC ABG pO2 77 L ABG pO2 ABG HCO3 ABG Base Excess ABG Hemoglobin Oxyhemoglobin Sodium 148 H Potassium Chloride Carbon Dioxide BUN 104 H Creatinine 3.0 H Glucose 149 H POC Glucose Lactic Acid Calcium Phosphorus Magnesium Direct Bilirubin AST ALT Alkaline Phosphatase 138 H Lactate Dehydrogenase Troponin T C-Reactive Protein Total Protein 6.2 L Albumin 1.5 L Prealbumin Triglycerides Cholesterol LDL Cholesterol Direct HDL Cholesterol PTH Intact Urine pH Urine WBC (Auto) Urine Creatinine Urine Total Protein Fluid Total Protein Vancomycin Trough Rheumatoid Factor Complement C4 Miscellaneous Test Crossmatch 10/17/16 10/17/16 10/17/16 06:02 12:17 17:14 WBC RBC Hgb Hct MCV MCH MCHC RDW Plt Count Lymph % (Auto) [place] % (Auto) Lymph # [place] # Baso # Seg Neutrophils % Seg Neuts % (Manual) Lymphocytes % (Manual) Monocytes % (Manual) Eosinophils % (Manual) Basophils % (Manual) Nucleated RBC % Seg Neutrophils # Seg Neutrophils # Man Lymphocytes # (Manual) Monocytes # (Manual) Eosinophils # (Manual) Basophils # (Manual) PT INR Fibrinogen dRVVT Confirm Interp Factor V Activity POC ABG pH POC ABG pCO2 POC ABG pO2 ABG pO2 ABG HCO3 ABG Base Excess ABG Hemoglobin Oxyhemoglobin Sodium Potassium Chloride Carbon Dioxide BUN Creatinine Glucose POC Glucose 170 H 167 H 126 H Lactic Acid Calcium Phosphorus Magnesium Direct Bilirubin AST ALT Alkaline Phosphatase Lactate Dehydrogenase Troponin T C-Reactive Protein Total Protein Albumin Prealbumin Triglycerides Cholesterol LDL Cholesterol Direct HDL Cholesterol PTH Intact Urine pH Urine WBC (Auto) Urine Creatinine Urine Total Protein Fluid Total Protein Vancomycin Trough Rheumatoid Factor Complement C4 Miscellaneous Test Crossmatch 10/17/16 10/18/16 10/18/16 23:17 04:00 04:00 WBC 20.7 H RBC 2.47 L Hgb 7.4 L Hct 22.9 L MCV MCH MCHC RDW 17.5 H Plt Count Lymph % (Auto) [place] % (Auto) Lymph # [place] # Baso # Seg Neutrophils % Seg Neuts % (Manual) Lymphocytes % (Manual) Monocytes % (Manual) Eosinophils % (Manual) Basophils % (Manual) Nucleated RBC % Seg Neutrophils # Seg Neutrophils # Man Lymphocytes # (Manual) Monocytes # (Manual) Eosinophils # (Manual) Basophils # (Manual) PT INR Fibrinogen dRVVT Confirm Interp Factor V Activity POC ABG pH POC ABG pCO2 POC ABG pO2 ABG pO2 ABG HCO3 ABG Base Excess ABG Hemoglobin Oxyhemoglobin Sodium 149 H Potassium Chloride 107.9 H Carbon Dioxide 20 L BUN 117 H Creatinine 3.2 H Glucose 119 H POC Glucose 121 H Lactic Acid Calcium Phosphorus Magnesium Direct Bilirubin AST ALT Alkaline Phosphatase Lactate Dehydrogenase Troponin T C-Reactive Protein Total Protein Albumin Prealbumin Triglycerides Cholesterol LDL Cholesterol Direct HDL Cholesterol PTH Intact Urine pH Urine WBC (Auto) Urine Creatinine Urine Total Protein Fluid Total Protein Vancomycin Trough Rheumatoid Factor Complement C4 Miscellaneous Test Crossmatch 10/18/16 10/18/16 10/18/16 05:23 10:46 17:30 WBC RBC Hgb Hct MCV MCH MCHC RDW Plt Count Lymph % (Auto) [place] % (Auto) Lymph # [place] # Baso # Seg Neutrophils % Seg Neuts % (Manual) Lymphocytes % (Manual) Monocytes % (Manual) Eosinophils % (Manual) Basophils % (Manual) Nucleated RBC % Seg Neutrophils # Seg Neutrophils # Man Lymphocytes # (Manual) Monocytes # (Manual) Eosinophils # (Manual) Basophils # (Manual) PT INR Fibrinogen dRVVT Confirm Interp Factor V Activity POC ABG pH POC ABG pCO2 POC ABG pO2 ABG pO2 ABG HCO3 ABG Base Excess ABG Hemoglobin Oxyhemoglobin Sodium Potassium Chloride Carbon Dioxide BUN Creatinine Glucose POC Glucose 119 H 155 H 124 H Lactic Acid Calcium Phosphorus Magnesium Direct Bilirubin AST ALT Alkaline Phosphatase Lactate Dehydrogenase Troponin T C-Reactive Protein Total Protein Albumin Prealbumin Triglycerides Cholesterol LDL Cholesterol Direct HDL Cholesterol PTH Intact Urine pH Urine WBC (Auto) Urine Creatinine Urine Total Protein Fluid Total Protein Vancomycin Trough Rheumatoid Factor Complement C4 Miscellaneous Test Crossmatch 10/19/16 10/19/16 10/19/16 04:00 04:00 05:25 WBC 17.4 H RBC 2.54 L Hgb 7.7 L Hct 23.6 L MCV MCH MCHC RDW 17.3 H Plt Count Lymph % (Auto) [place] % (Auto) Lymph # [place] # Baso # Seg Neutrophils % Seg Neuts % (Manual) Lymphocytes % (Manual) Monocytes % (Manual) Eosinophils % (Manual) Basophils % (Manual) Nucleated RBC % Seg Neutrophils # Seg Neutrophils # Man Lymphocytes # (Manual) Monocytes # (Manual) Eosinophils # (Manual) Basophils # (Manual) PT INR Fibrinogen dRVVT Confirm Interp Factor V Activity POC ABG pH POC ABG pCO2 POC ABG pO2 ABG pO2 ABG HCO3 ABG Base Excess ABG Hemoglobin Oxyhemoglobin Sodium Potassium Chloride Carbon Dioxide BUN 72 H Creatinine 2.1 H Glucose 116 H POC Glucose 119 H Lactic Acid Calcium Phosphorus Magnesium Direct Bilirubin AST ALT Alkaline Phosphatase Lactate Dehydrogenase Troponin T C-Reactive Protein Total Protein Albumin Prealbumin Triglycerides Cholesterol LDL Cholesterol Direct HDL Cholesterol PTH Intact Urine pH Urine WBC (Auto) Urine Creatinine Urine Total Protein Fluid Total Protein Vancomycin Trough Rheumatoid Factor Complement C4 Miscellaneous Test Crossmatch 10/19/16 10/19/16 10/20/16 11:46 23:59 06:00 WBC RBC Hgb Hct MCV MCH MCHC RDW Plt Count Lymph % (Auto) [place] % (Auto) Lymph # [place] # Baso # Seg Neutrophils % Seg Neuts % (Manual) Lymphocytes % (Manual) Monocytes % (Manual) Eosinophils % (Manual) Basophils % (Manual) Nucleated RBC % Seg Neutrophils # Seg Neutrophils # Man Lymphocytes # (Manual) Monocytes # (Manual) Eosinophils # (Manual) Basophils # (Manual) PT INR Fibrinogen dRVVT Confirm Interp Factor V Activity POC ABG pH POC ABG pCO2 POC ABG pO2 ABG pO2 ABG HCO3 ABG Base Excess ABG Hemoglobin Oxyhemoglobin Sodium Potassium Chloride Carbon Dioxide 17 L BUN 94 H Creatinine 2.7 H Glucose POC Glucose 116 H 117 H Lactic Acid Calcium Phosphorus Magnesium Direct Bilirubin AST ALT Alkaline Phosphatase Lactate Dehydrogenase Troponin T C-Reactive Protein Total Protein Albumin Prealbumin Triglycerides Cholesterol LDL Cholesterol Direct HDL Cholesterol PTH Intact Urine pH Urine WBC (Auto) Urine Creatinine Urine Total Protein Fluid Total Protein Vancomycin Trough Rheumatoid Factor Complement C4 Miscellaneous Test Crossmatch 10/20/16 10/20/16 10/20/16 06:00 11:49 16:00 WBC 19.7 H RBC 2.51 L Hgb 7.7 L Hct 23.5 L MCV MCH MCHC RDW 17.5 H Plt Count Lymph % (Auto) [place] % (Auto) Lymph # [place] # Baso # Seg Neutrophils % Seg Neuts % (Manual) Lymphocytes % (Manual) Monocytes % (Manual) Eosinophils % (Manual) Basophils % (Manual) Nucleated RBC % Seg Neutrophils # Seg Neutrophils # Man Lymphocytes # (Manual) Monocytes # (Manual) Eosinophils # (Manual) Basophils # (Manual) PT INR Fibrinogen dRVVT Confirm Interp Factor V Activity POC ABG pH POC ABG pCO2 POC ABG pO2 ABG pO2 ABG HCO3 ABG Base Excess ABG Hemoglobin Oxyhemoglobin Sodium Potassium Chloride Carbon Dioxide BUN Creatinine Glucose POC Glucose 117 H Lactic Acid Calcium Phosphorus Magnesium Direct Bilirubin AST ALT Alkaline Phosphatase Lactate Dehydrogenase Troponin T C-Reactive Protein Total Protein Albumin Prealbumin Triglycerides Cholesterol LDL Cholesterol Direct HDL Cholesterol PTH Intact Urine pH Urine WBC (Auto) Urine Creatinine Urine Total Protein Fluid Total Protein Vancomycin Trough Rheumatoid Factor Complement C4 Miscellaneous Test Flexitest 1 H Crossmatch 10/20/16 10/20/16 10/21/16 18:36 23:39 04:00 WBC RBC Hgb Hct MCV MCH MCHC RDW Plt Count Lymph % (Auto) [place] % (Auto) Lymph # [place] # Baso # Seg Neutrophils % Seg Neuts % (Manual) Lymphocytes % (Manual) Monocytes % (Manual) Eosinophils % (Manual) Basophils % (Manual) Nucleated RBC % Seg Neutrophils # Seg Neutrophils # Man Lymphocytes # (Manual) Monocytes # (Manual) Eosinophils # (Manual) Basophils # (Manual) PT INR Fibrinogen dRVVT Confirm Interp Factor V Activity POC ABG pH POC ABG pCO2 POC ABG pO2 ABG pO2 ABG HCO3 ABG Base Excess ABG Hemoglobin Oxyhemoglobin Sodium Potassium 5.4 H D Chloride Carbon Dioxide 15 L BUN 110 H Creatinine 3.0 H Glucose POC Glucose 127 H 114 H Lactic Acid Calcium Phosphorus Magnesium Direct Bilirubin AST ALT Alkaline Phosphatase Lactate Dehydrogenase Troponin T C-Reactive Protein Total Protein Albumin Prealbumin Triglycerides Cholesterol LDL Cholesterol Direct HDL Cholesterol PTH Intact Urine pH Urine WBC (Auto) Urine Creatinine Urine Total Protein Fluid Total Protein Vancomycin Trough Rheumatoid Factor Complement C4 Miscellaneous Test Crossmatch 10/21/16 10/21/16 10/22/16 05:54 23:46 05:18 WBC RBC Hgb Hct MCV MCH MCHC RDW Plt Count Lymph % (Auto) [place] % (Auto) Lymph # [place] # Baso # Seg Neutrophils % Seg Neuts % (Manual) Lymphocytes % (Manual) Monocytes % (Manual) Eosinophils % (Manual) Basophils % (Manual) Nucleated RBC % Seg Neutrophils # Seg Neutrophils # Man Lymphocytes # (Manual) Monocytes # (Manual) Eosinophils # (Manual) Basophils # (Manual) PT INR Fibrinogen dRVVT Confirm Interp Factor V Activity POC ABG pH POC ABG pCO2 POC ABG pO2 ABG pO2 ABG HCO3 ABG Base Excess ABG Hemoglobin Oxyhemoglobin Sodium Potassium Chloride Carbon Dioxide BUN Creatinine Glucose POC Glucose 119 H 108 H 109 H Lactic Acid Calcium Phosphorus Magnesium Direct Bilirubin AST ALT Alkaline Phosphatase Lactate Dehydrogenase Troponin T C-Reactive Protein Total Protein Albumin Prealbumin Triglycerides Cholesterol LDL Cholesterol Direct HDL Cholesterol PTH Intact Urine pH Urine WBC (Auto) Urine Creatinine Urine Total Protein Fluid Total Protein Vancomycin Trough Rheumatoid Factor Complement C4 Miscellaneous Test Crossmatch 10/22/16 10/22/16 10/22/16 06:40 06:40 06:40 WBC 14.0 H RBC 2.03 L Hgb 7.0 L Hct 20.5 L MCV 98 H MCH 34 H MCHC 35 H RDW 17.8 H Plt Count Lymph % (Auto) [place] % (Auto) 9.9 H Lymph # [place] # 1.4 H Baso # 0.2 H Seg Neutrophils % 72.0 H Seg Neuts % (Manual) Lymphocytes % (Manual) Monocytes % (Manual) Eosinophils % (Manual) Basophils % (Manual) Nucleated RBC % Seg Neutrophils # 10.0 H Seg Neutrophils # Man Lymphocytes # (Manual) Monocytes # (Manual) Eosinophils # (Manual) Basophils # (Manual) PT INR Fibrinogen dRVVT Confirm Interp Factor V Activity POC ABG pH POC ABG pCO2 POC ABG pO2 ABG pO2 ABG HCO3 ABG Base Excess ABG Hemoglobin Oxyhemoglobin Sodium 130 L D Potassium Chloride 92.4 L Carbon Dioxide 20 L BUN 50 H Creatinine 1.6 H Glucose 589 H* POC Glucose Lactic Acid Calcium 7.8 L D Phosphorus Magnesium 1.60 L Direct Bilirubin AST ALT Alkaline Phosphatase Lactate Dehydrogenase Troponin T C-Reactive Protein Total Protein Albumin Prealbumin Triglycerides Cholesterol LDL Cholesterol Direct HDL Cholesterol PTH Intact Urine pH Urine WBC (Auto) Urine Creatinine Urine Total Protein Fluid Total Protein Vancomycin Trough Rheumatoid Factor Complement C4 Miscellaneous Test Crossmatch 10/22/16 10/22/16 10/22/16 11:39 16:44 23:36 WBC RBC Hgb Hct MCV MCH MCHC RDW Plt Count Lymph % (Auto) [place] % (Auto) Lymph # [place] # Baso # Seg Neutrophils % Seg Neuts % (Manual) Lymphocytes % (Manual) Monocytes % (Manual) Eosinophils % (Manual) Basophils % (Manual) Nucleated RBC % Seg Neutrophils # Seg Neutrophils # Man Lymphocytes # (Manual) Monocytes # (Manual) Eosinophils # (Manual) Basophils # (Manual) PT INR Fibrinogen dRVVT Confirm Interp Factor V Activity POC ABG pH POC ABG pCO2 POC ABG pO2 ABG pO2 ABG HCO3 ABG Base Excess ABG Hemoglobin Oxyhemoglobin Sodium Potassium Chloride Carbon Dioxide BUN Creatinine Glucose POC Glucose 142 H 163 H 123 H Lactic Acid Calcium Phosphorus Magnesium Direct Bilirubin AST ALT Alkaline Phosphatase Lactate Dehydrogenase Troponin T C-Reactive Protein Total Protein Albumin Prealbumin Triglycerides Cholesterol LDL Cholesterol Direct HDL Cholesterol PTH Intact Urine pH Urine WBC (Auto) Urine Creatinine Urine Total Protein Fluid Total Protein Vancomycin Trough Rheumatoid Factor Complement C4 Miscellaneous Test Crossmatch 10/23/16 10/23/16 10/23/16 04:58 06:00 12:12 WBC RBC Hgb Hct MCV MCH MCHC RDW Plt Count Lymph % (Auto) [place] % (Auto) Lymph # [place] # Baso # Seg Neutrophils % Seg Neuts % (Manual) Lymphocytes % (Manual) Monocytes % (Manual) Eosinophils % (Manual) Basophils % (Manual) Nucleated RBC % Seg Neutrophils # Seg Neutrophils # Man Lymphocytes # (Manual) Monocytes # (Manual) Eosinophils # (Manual) Basophils # (Manual) PT INR Fibrinogen dRVVT Confirm Interp Factor V Activity POC ABG pH POC ABG pCO2 POC ABG pO2 ABG pO2 ABG HCO3 ABG Base Excess ABG Hemoglobin Oxyhemoglobin Sodium 133 L Potassium 3.5 L Chloride 96.1 L Carbon Dioxide 18 L BUN 76 H Creatinine 2.1 H Glucose POC Glucose 133 H 138 H Lactic Acid Calcium 8.3 L Phosphorus Magnesium Direct Bilirubin AST ALT Alkaline Phosphatase Lactate Dehydrogenase Troponin T C-Reactive Protein Total Protein Albumin Prealbumin Triglycerides Cholesterol LDL Cholesterol Direct HDL Cholesterol PTH Intact Urine pH Urine WBC (Auto) Urine Creatinine Urine Total Protein Fluid Total Protein Vancomycin Trough Rheumatoid Factor Complement C4 Miscellaneous Test Crossmatch 10/23/16 10/23/16 10/24/16 16:53 23:37 04:00 WBC RBC Hgb Hct MCV MCH MCHC RDW Plt Count Lymph % (Auto) [place] % (Auto) Lymph # [place] # Baso # Seg Neutrophils % Seg Neuts % (Manual) Lymphocytes % (Manual) Monocytes % (Manual) Eosinophils % (Manual) Basophils % (Manual) Nucleated RBC % Seg Neutrophils # Seg Neutrophils # Man Lymphocytes # (Manual) Monocytes # (Manual) Eosinophils # (Manual) Basophils # (Manual) PT INR Fibrinogen dRVVT Confirm Interp Factor V Activity POC ABG pH POC ABG pCO2 POC ABG pO2 ABG pO2 ABG HCO3 ABG Base Excess ABG Hemoglobin Oxyhemoglobin Sodium 131 L Potassium Chloride 94.5 L Carbon Dioxide 19 L BUN 97 H Creatinine 2.6 H Glucose 110 H POC Glucose 125 H 123 H Lactic Acid Calcium 8.3 L Phosphorus Magnesium Direct Bilirubin AST ALT Alkaline Phosphatase Lactate Dehydrogenase Troponin T C-Reactive Protein Total Protein Albumin Prealbumin Triglycerides Cholesterol LDL Cholesterol Direct HDL Cholesterol PTH Intact Urine pH Urine WBC (Auto) Urine Creatinine Urine Total Protein Fluid Total Protein Vancomycin Trough Rheumatoid Factor Complement C4 Miscellaneous Test Crossmatch 10/24/16 10/24/16 10/24/16 07:49 11:39 17:52 WBC RBC Hgb 6.0 L Hct 19.7 L* MCV MCH MCHC RDW Plt Count Lymph % (Auto) [place] % (Auto) Lymph # [place] # Baso # Seg Neutrophils % Seg Neuts % (Manual) Lymphocytes % (Manual) Monocytes % (Manual) Eosinophils % (Manual) Basophils % (Manual) Nucleated RBC % Seg Neutrophils # Seg Neutrophils # Man Lymphocytes # (Manual) Monocytes # (Manual) Eosinophils # (Manual) Basophils # (Manual) PT INR Fibrinogen dRVVT Confirm Interp Factor V Activity POC ABG pH POC ABG pCO2 POC ABG pO2 ABG pO2 ABG HCO3 ABG Base Excess ABG Hemoglobin Oxyhemoglobin Sodium Potassium Chloride Carbon Dioxide BUN Creatinine Glucose POC Glucose 106 H 158 H Lactic Acid Calcium Phosphorus Magnesium Direct Bilirubin AST ALT Alkaline Phosphatase Lactate Dehydrogenase Troponin T C-Reactive Protein Total Protein Albumin Prealbumin Triglycerides Cholesterol LDL Cholesterol Direct HDL Cholesterol PTH Intact Urine pH Urine WBC (Auto) Urine Creatinine Urine Total Protein Fluid Total Protein Vancomycin Trough Rheumatoid Factor Complement C4 Miscellaneous Test Crossmatch 10/24/16 10/24/16 10/24/16 20:00 22:27 Unknown WBC RBC Hgb 9.4 L D Hct 27.5 L D MCV MCH MCHC RDW Plt Count Lymph % (Auto) [place] % (Auto) Lymph # [place] # Baso # Seg Neutrophils % Seg Neuts % (Manual) Lymphocytes % (Manual) Monocytes % (Manual) Eosinophils % (Manual) Basophils % (Manual) Nucleated RBC % Seg Neutrophils # Seg Neutrophils # Man Lymphocytes # (Manual) Monocytes # (Manual) Eosinophils # (Manual) Basophils # (Manual) PT INR Fibrinogen dRVVT Confirm Interp Factor V Activity POC ABG pH POC ABG pCO2 POC ABG pO2 ABG pO2 ABG HCO3 ABG Base Excess ABG Hemoglobin Oxyhemoglobin Sodium Potassium Chloride Carbon Dioxide BUN Creatinine Glucose POC Glucose 125 H Lactic Acid Calcium Phosphorus Magnesium Direct Bilirubin AST ALT Alkaline Phosphatase Lactate Dehydrogenase Troponin T C-Reactive Protein Total Protein Albumin Prealbumin Triglycerides Cholesterol LDL Cholesterol Direct HDL Cholesterol PTH Intact Urine pH Urine WBC (Auto) Urine Creatinine Urine Total Protein Fluid Total Protein Vancomycin Trough Rheumatoid Factor Complement C4 Miscellaneous Test Crossmatch See Detail 10/25/16 10/25/16 10/25/16 04:00 04:00 04:00 WBC 14.2 H RBC 2.98 L Hgb 9.0 L Hct 26.2 L MCV MCH MCHC RDW 16.6 H Plt Count Lymph % (Auto) [place] % (Auto) 10.7 H Lymph # [place] # 1.5 H Baso # Seg Neutrophils % 73.6 H Seg Neuts % (Manual) Lymphocytes % (Manual) Monocytes % (Manual) Eosinophils % (Manual) Basophils % (Manual) Nucleated RBC % Seg Neutrophils # 10.5 H Seg Neutrophils # Man Lymphocytes # (Manual) Monocytes # (Manual) Eosinophils # (Manual) Basophils # (Manual) PT INR Fibrinogen dRVVT Confirm Interp Factor V Activity POC ABG pH POC ABG pCO2 POC ABG pO2 ABG pO2 ABG HCO3 ABG Base Excess ABG Hemoglobin Oxyhemoglobin Sodium 132 L Potassium Chloride 94.7 L Carbon Dioxide BUN 51 H Creatinine 1.6 H Glucose 130 H POC Glucose Lactic Acid Calcium 8.3 L Phosphorus 1.60 L D Magnesium Direct Bilirubin AST ALT Alkaline Phosphatase Lactate Dehydrogenase Troponin T C-Reactive Protein Total Protein Albumin Prealbumin Triglycerides Cholesterol LDL Cholesterol Direct HDL Cholesterol PTH Intact Urine pH Urine WBC (Auto) Urine Creatinine Urine Total Protein Fluid Total Protein Vancomycin Trough Rheumatoid Factor Complement C4 Miscellaneous Test Crossmatch 10/25/16 10/25/16 10/25/16 04:32 11:48 17:22 WBC RBC Hgb Hct MCV MCH MCHC RDW Plt Count Lymph % (Auto) [place] % (Auto) Lymph # [place] # Baso # Seg Neutrophils % Seg Neuts % (Manual) Lymphocytes % (Manual) Monocytes % (Manual) Eosinophils % (Manual) Basophils % (Manual) Nucleated RBC % Seg Neutrophils # Seg Neutrophils # Man Lymphocytes # (Manual) Monocytes # (Manual) Eosinophils # (Manual) Basophils # (Manual) PT INR Fibrinogen dRVVT Confirm Interp Factor V Activity POC ABG pH POC ABG pCO2 POC ABG pO2 ABG pO2 ABG HCO3 ABG Base Excess ABG Hemoglobin Oxyhemoglobin Sodium Potassium Chloride Carbon Dioxide BUN Creatinine Glucose POC Glucose 124 H 171 H 120 H Lactic Acid Calcium Phosphorus Magnesium Direct Bilirubin AST ALT Alkaline Phosphatase Lactate Dehydrogenase Troponin T C-Reactive Protein Total Protein Albumin Prealbumin Triglycerides Cholesterol LDL Cholesterol Direct HDL Cholesterol PTH Intact Urine pH Urine WBC (Auto) Urine Creatinine Urine Total Protein Fluid Total Protein Vancomycin Trough Rheumatoid Factor Complement C4 Miscellaneous Test Crossmatch 10/26/16 10/26/16 10/26/16 04:54 07:06 07:06 WBC 16.9 H RBC 3.06 L Hgb 9.1 L Hct 26.9 L MCV MCH MCHC RDW 16.9 H Plt Count Lymph % (Auto) [place] % (Auto) Lymph # [place] # Baso # Seg Neutrophils % Seg Neuts % (Manual) 71.0 H Lymphocytes % (Manual) 5.0 L Monocytes % (Manual) 12.0 H Eosinophils % (Manual) Basophils % (Manual) Nucleated RBC % Seg Neutrophils # Seg Neutrophils # Man 12.0 H Lymphocytes # (Manual) 0.8 L Monocytes # (Manual) 2.0 H Eosinophils # (Manual) Basophils # (Manual) PT INR Fibrinogen dRVVT Confirm Interp Factor V Activity POC ABG pH POC ABG pCO2 POC ABG pO2 ABG pO2 ABG HCO3 ABG Base Excess ABG Hemoglobin Oxyhemoglobin Sodium 135 L Potassium Chloride 97.1 L Carbon Dioxide BUN 73 H Creatinine 2.2 H Glucose 117 H POC Glucose 123 H Lactic Acid Calcium Phosphorus 1.70 L Magnesium Direct Bilirubin AST ALT Alkaline Phosphatase Lactate Dehydrogenase Troponin T C-Reactive Protein Total Protein Albumin Prealbumin Triglycerides Cholesterol LDL Cholesterol Direct HDL Cholesterol PTH Intact Urine pH Urine WBC (Auto) Urine Creatinine Urine Total Protein Fluid Total Protein Vancomycin Trough Rheumatoid Factor Complement C4 Miscellaneous Test Crossmatch 10/26/16 10/26/16 10/26/16 12:12 17:29 23:42 WBC RBC Hgb Hct MCV MCH MCHC RDW Plt Count Lymph % (Auto) [place] % (Auto) Lymph # [place] # Baso # Seg Neutrophils % Seg Neuts % (Manual) Lymphocytes % (Manual) Monocytes % (Manual) Eosinophils % (Manual) Basophils % (Manual) Nucleated RBC % Seg Neutrophils # Seg Neutrophils # Man Lymphocytes # (Manual) Monocytes # (Manual) Eosinophils # (Manual) Basophils # (Manual) PT INR Fibrinogen dRVVT Confirm Interp Factor V Activity POC ABG pH POC ABG pCO2 POC ABG pO2 ABG pO2 ABG HCO3 ABG Base Excess ABG Hemoglobin Oxyhemoglobin Sodium Potassium Chloride Carbon Dioxide BUN Creatinine Glucose POC Glucose 126 H 161 H 118 H Lactic Acid Calcium Phosphorus Magnesium Direct Bilirubin AST ALT Alkaline Phosphatase Lactate Dehydrogenase Troponin T C-Reactive Protein Total Protein Albumin Prealbumin Triglycerides Cholesterol LDL Cholesterol Direct HDL Cholesterol PTH Intact Urine pH Urine WBC (Auto) Urine Creatinine Urine Total Protein Fluid Total Protein Vancomycin Trough Rheumatoid Factor Complement C4 Miscellaneous Test Crossmatch 10/27/16 10/27/16 10/27/16 05:03 06:30 06:30 WBC 13.9 H RBC 3.09 L Hgb 9.2 L Hct 27.5 L MCV MCH MCHC RDW 17.0 H Plt Count Lymph % (Auto) [place] % (Auto) Lymph # [place] # Baso # Seg Neutrophils % Seg Neuts % (Manual) 78.0 H Lymphocytes % (Manual) Monocytes % (Manual) Eosinophils % (Manual) Basophils % (Manual) Nucleated RBC % 2.0 H Seg Neutrophils # Seg Neutrophils # Man 10.8 H Lymphocytes # (Manual) Monocytes # (Manual) 1.0 H Eosinophils # (Manual) Basophils # (Manual) PT INR Fibrinogen dRVVT Confirm Interp Factor V Activity POC ABG pH POC ABG pCO2 POC ABG pO2 ABG pO2 ABG HCO3 ABG Base Excess ABG Hemoglobin Oxyhemoglobin Sodium Potassium Chloride Carbon Dioxide BUN 40 H Creatinine 1.5 H Glucose 135 H POC Glucose 107 H Lactic Acid Calcium 8.3 L Phosphorus 1.30 L D Magnesium Direct Bilirubin AST ALT Alkaline Phosphatase Lactate Dehydrogenase Troponin T C-Reactive Protein Total Protein Albumin Prealbumin Triglycerides Cholesterol LDL Cholesterol Direct HDL Cholesterol PTH Intact Urine pH Urine WBC (Auto) Urine Creatinine Urine Total Protein Fluid Total Protein Vancomycin Trough Rheumatoid Factor Complement C4 Miscellaneous Test Crossmatch 10/27/16 10/27/16 10/27/16 13:27 18:07 23:40 WBC RBC Hgb Hct MCV MCH MCHC RDW Plt Count Lymph % (Auto) [place] % (Auto) Lymph # [place] # Baso # Seg Neutrophils % Seg Neuts % (Manual) Lymphocytes % (Manual) Monocytes % (Manual) Eosinophils % (Manual) Basophils % (Manual) Nucleated RBC % Seg Neutrophils # Seg Neutrophils # Man Lymphocytes # (Manual) Monocytes # (Manual) Eosinophils # (Manual) Basophils # (Manual) PT INR Fibrinogen dRVVT Confirm Interp Factor V Activity POC ABG pH POC ABG pCO2 POC ABG pO2 ABG pO2 ABG HCO3 ABG Base Excess ABG Hemoglobin Oxyhemoglobin Sodium Potassium Chloride Carbon Dioxide BUN Creatinine Glucose POC Glucose 117 H 121 H 118 H Lactic Acid Calcium Phosphorus Magnesium Direct Bilirubin AST ALT Alkaline Phosphatase Lactate Dehydrogenase Troponin T C-Reactive Protein Total Protein Albumin Prealbumin Triglycerides Cholesterol LDL Cholesterol Direct HDL Cholesterol PTH Intact Urine pH Urine WBC (Auto) Urine Creatinine Urine Total Protein Fluid Total Protein Vancomycin Trough Rheumatoid Factor Complement C4 Miscellaneous Test Crossmatch 10/28/16 10/28/16 10/28/16 05:48 06:45 06:45 WBC 14.7 H RBC 3.05 L Hgb 9.0 L Hct 26.9 L MCV MCH MCHC RDW 16.8 H Plt Count Lymph % (Auto) 8.2 L [place] % (Auto) 8.4 H Lymph # [place] # 1.2 H Baso # Seg Neutrophils % 81.9 H Seg Neuts % (Manual) Lymphocytes % (Manual) Monocytes % (Manual) Eosinophils % (Manual) Basophils % (Manual) Nucleated RBC % Seg Neutrophils # 12.1 H Seg Neutrophils # Man Lymphocytes # (Manual) Monocytes # (Manual) Eosinophils # (Manual) Basophils # (Manual) PT INR Fibrinogen dRVVT Confirm Interp Factor V Activity POC ABG pH POC ABG pCO2 POC ABG pO2 ABG pO2 ABG HCO3 ABG Base Excess ABG Hemoglobin Oxyhemoglobin Sodium Potassium Chloride Carbon Dioxide BUN 60 H Creatinine 1.9 H Glucose 120 H POC Glucose 114 H Lactic Acid Calcium Phosphorus Magnesium Direct Bilirubin AST ALT Alkaline Phosphatase Lactate Dehydrogenase Troponin T C-Reactive Protein Total Protein Albumin Prealbumin Triglycerides Cholesterol LDL Cholesterol Direct HDL Cholesterol PTH Intact Urine pH Urine WBC (Auto) Urine Creatinine Urine Total Protein Fluid Total Protein Vancomycin Trough Rheumatoid Factor Complement C4 Miscellaneous Test Crossmatch 10/28/16 10/28/16 10/29/16 17:08 23:50 05:10 WBC RBC Hgb Hct MCV MCH MCHC RDW Plt Count Lymph % (Auto) [place] % (Auto) Lymph # [place] # Baso # Seg Neutrophils % Seg Neuts % (Manual) Lymphocytes % (Manual) Monocytes % (Manual) Eosinophils % (Manual) Basophils % (Manual) Nucleated RBC % Seg Neutrophils # Seg Neutrophils # Man Lymphocytes # (Manual) Monocytes # (Manual) Eosinophils # (Manual) Basophils # (Manual) PT INR Fibrinogen dRVVT Confirm Interp Factor V Activity POC ABG pH POC ABG pCO2 POC ABG pO2 ABG pO2 ABG HCO3 ABG Base Excess ABG Hemoglobin Oxyhemoglobin Sodium Potassium Chloride Carbon Dioxide BUN Creatinine Glucose POC Glucose 109 H 110 H 124 H Lactic Acid Calcium Phosphorus Magnesium Direct Bilirubin AST ALT Alkaline Phosphatase Lactate Dehydrogenase Troponin T C-Reactive Protein Total Protein Albumin Prealbumin Triglycerides Cholesterol LDL Cholesterol Direct HDL Cholesterol PTH Intact Urine pH Urine WBC (Auto) Urine Creatinine Urine Total Protein Fluid Total Protein Vancomycin Trough Rheumatoid Factor Complement C4 Miscellaneous Test Crossmatch 10/29/16 10/29/16 10/29/16 07:45 07:45 12:19 WBC 14.7 H RBC 3.15 L Hgb 9.3 L Hct 28.9 L MCV MCH MCHC RDW 17.0 H Plt Count Lymph % (Auto) 11.9 L [place] % (Auto) 8.6 H Lymph # [place] # 1.3 H Baso # Seg Neutrophils % 78.1 H Seg Neuts % (Manual) Lymphocytes % (Manual) Monocytes % (Manual) Eosinophils % (Manual) Basophils % (Manual) Nucleated RBC % Seg Neutrophils # 11.4 H Seg Neutrophils # Man Lymphocytes # (Manual) Monocytes # (Manual) Eosinophils # (Manual) Basophils # (Manual) PT INR Fibrinogen dRVVT Confirm Interp Factor V Activity POC ABG pH POC ABG pCO2 POC ABG pO2 ABG pO2 ABG HCO3 ABG Base Excess ABG Hemoglobin Oxyhemoglobin Sodium Potassium 5.1 H Chloride Carbon Dioxide 19 L BUN 78 H Creatinine 2.2 H Glucose 116 H POC Glucose 118 H Lactic Acid Calcium Phosphorus Magnesium Direct Bilirubin AST ALT Alkaline Phosphatase Lactate Dehydrogenase Troponin T C-Reactive Protein Total Protein Albumin Prealbumin Triglycerides Cholesterol LDL Cholesterol Direct HDL Cholesterol PTH Intact Urine pH Urine WBC (Auto) Urine Creatinine Urine Total Protein Fluid Total Protein Vancomycin Trough Rheumatoid Factor Complement C4 Miscellaneous Test Crossmatch 10/29/16 10/30/16 10/30/16 17:49 01:52 03:28 WBC RBC Hgb Hct MCV MCH MCHC RDW Plt Count Lymph % (Auto) [place] % (Auto) Lymph # [place] # Baso # Seg Neutrophils % Seg Neuts % (Manual) Lymphocytes % (Manual) Monocytes % (Manual) Eosinophils % (Manual) Basophils % (Manual) Nucleated RBC % Seg Neutrophils # Seg Neutrophils # Man Lymphocytes # (Manual) Monocytes # (Manual) Eosinophils # (Manual) Basophils # (Manual) PT INR Fibrinogen dRVVT Confirm Interp Factor V Activity POC ABG pH POC ABG pCO2 POC ABG pO2 ABG pO2 ABG HCO3 ABG Base Excess ABG Hemoglobin Oxyhemoglobin Sodium Potassium 5.4 H Chloride 97.5 L Carbon Dioxide 19 L BUN 90 H Creatinine 2.5 H Glucose POC Glucose 120 H 129 H Lactic Acid Calcium Phosphorus 5.20 H Magnesium Direct Bilirubin AST ALT Alkaline Phosphatase Lactate Dehydrogenase Troponin T C-Reactive Protein Total Protein Albumin Prealbumin Triglycerides Cholesterol LDL Cholesterol Direct HDL Cholesterol PTH Intact Urine pH Urine WBC (Auto) Urine Creatinine Urine Total Protein Fluid Total Protein Vancomycin Trough Rheumatoid Factor Complement C4 Miscellaneous Test Crossmatch 10/30/16 10/30/16 10/30/16 03:28 08:19 08:19 WBC 11.6 H 15.9 H RBC 2.75 L 2.82 L Hgb 7.9 L 8.3 L Hct 24.2 L 25.2 L MCV MCH MCHC RDW 16.7 H 17.2 H Plt Count Lymph % (Auto) [place] % (Auto) 9.8 H Lymph # [place] # 1.1 H Baso # Seg Neutrophils % 74.2 H Seg Neuts % (Manual) Lymphocytes % (Manual) Monocytes % (Manual) Eosinophils % (Manual) Basophils % (Manual) Nucleated RBC % Seg Neutrophils # 8.6 H Seg Neutrophils # Man Lymphocytes # (Manual) Monocytes # (Manual) Eosinophils # (Manual) Basophils # (Manual) PT INR Fibrinogen dRVVT Confirm Interp Factor V Activity POC ABG pH POC ABG pCO2 POC ABG pO2 ABG pO2 ABG HCO3 ABG Base Excess ABG Hemoglobin Oxyhemoglobin Sodium Potassium 5.3 H Chloride 97.4 L Carbon Dioxide 19 L BUN 93 H Creatinine 2.6 H Glucose POC Glucose Lactic Acid Calcium Phosphorus Magnesium Direct Bilirubin AST ALT Alkaline Phosphatase Lactate Dehydrogenase Troponin T C-Reactive Protein Total Protein Albumin Prealbumin Triglycerides Cholesterol LDL Cholesterol Direct HDL Cholesterol PTH Intact Urine pH Urine WBC (Auto) Urine Creatinine Urine Total Protein Fluid Total Protein Vancomycin Trough Rheumatoid Factor Complement C4 Miscellaneous Test Crossmatch 10/30/16 10/30/16 10/31/16 17:11 23:56 00:40 WBC RBC Hgb Hct MCV MCH MCHC RDW Plt Count Lymph % (Auto) [place] % (Auto) Lymph # [place] # Baso # Seg Neutrophils % Seg Neuts % (Manual) Lymphocytes % (Manual) Monocytes % (Manual) Eosinophils % (Manual) Basophils % (Manual) Nucleated RBC % Seg Neutrophils # Seg Neutrophils # Man Lymphocytes # (Manual) Monocytes # (Manual) Eosinophils # (Manual) Basophils # (Manual) PT INR Fibrinogen dRVVT Confirm Interp Factor V Activity POC ABG pH POC ABG pCO2 POC ABG pO2 ABG pO2 ABG HCO3 ABG Base Excess ABG Hemoglobin Oxyhemoglobin Sodium Potassium Chloride Carbon Dioxide BUN Creatinine Glucose POC Glucose 106 H 117 H 120 H Lactic Acid Calcium Phosphorus Magnesium Direct Bilirubin AST ALT Alkaline Phosphatase Lactate Dehydrogenase Troponin T C-Reactive Protein Total Protein Albumin Prealbumin Triglycerides Cholesterol LDL Cholesterol Direct HDL Cholesterol PTH Intact Urine pH Urine WBC (Auto) Urine Creatinine Urine Total Protein Fluid Total Protein Vancomycin Trough Rheumatoid Factor Complement C4 Miscellaneous Test Crossmatch 10/31/16 10/31/16 10/31/16 05:43 07:15 07:15 WBC 12.1 H RBC 2.63 L Hgb 7.7 L Hct 23.3 L MCV MCH MCHC RDW 16.7 H Plt Count Lymph % (Auto) 11.7 L [place] % (Auto) 7.7 H Lymph # [place] # 0.9 H Baso # Seg Neutrophils % 78.0 H Seg Neuts % (Manual) Lymphocytes % (Manual) Monocytes % (Manual) Eosinophils % (Manual) Basophils % (Manual) Nucleated RBC % Seg Neutrophils # 9.4 H Seg Neutrophils # Man Lymphocytes # (Manual) Monocytes # (Manual) Eosinophils # (Manual) Basophils # (Manual) PT INR Fibrinogen dRVVT Confirm Interp Factor V Activity POC ABG pH POC ABG pCO2 POC ABG pO2 ABG pO2 ABG HCO3 ABG Base Excess ABG Hemoglobin Oxyhemoglobin Sodium Potassium Chloride 96.4 L Carbon Dioxide 21 L BUN 99 H Creatinine 2.6 H Glucose 144 H POC Glucose 125 H Lactic Acid Calcium Phosphorus 4.80 H Magnesium Direct Bilirubin AST ALT Alkaline Phosphatase Lactate Dehydrogenase Troponin T C-Reactive Protein Total Protein Albumin Prealbumin Triglycerides Cholesterol LDL Cholesterol Direct HDL Cholesterol PTH Intact Urine pH Urine WBC (Auto) Urine Creatinine Urine Total Protein Fluid Total Protein Vancomycin Trough Rheumatoid Factor Complement C4 Miscellaneous Test Crossmatch 10/31/16 10/31/16 11/01/16 11:46 18:34 00:20 WBC RBC Hgb Hct MCV MCH MCHC RDW Plt Count Lymph % (Auto) [place] % (Auto) Lymph # [place] # Baso # Seg Neutrophils % Seg Neuts % (Manual) Lymphocytes % (Manual) Monocytes % (Manual) Eosinophils % (Manual) Basophils % (Manual) Nucleated RBC % Seg Neutrophils # Seg Neutrophils # Man Lymphocytes # (Manual) Monocytes # (Manual) Eosinophils # (Manual) Basophils # (Manual) PT INR Fibrinogen dRVVT Confirm Interp Factor V Activity POC ABG pH POC ABG pCO2 POC ABG pO2 ABG pO2 ABG HCO3 ABG Base Excess ABG Hemoglobin Oxyhemoglobin Sodium Potassium Chloride Carbon Dioxide BUN Creatinine Glucose POC Glucose 159 H 140 H 132 H Lactic Acid Calcium Phosphorus Magnesium Direct Bilirubin AST ALT Alkaline Phosphatase Lactate Dehydrogenase Troponin T C-Reactive Protein Total Protein Albumin Prealbumin Triglycerides Cholesterol LDL Cholesterol Direct HDL Cholesterol PTH Intact Urine pH Urine WBC (Auto) Urine Creatinine Urine Total Protein Fluid Total Protein Vancomycin Trough Rheumatoid Factor Complement C4 Miscellaneous Test Crossmatch 11/01/16 11/01/16 11/01/16 04:55 04:55 06:11 WBC 11.2 H RBC 2.68 L Hgb 7.5 L Hct 23.7 L MCV MCH MCHC RDW 16.1 H Plt Count Lymph % (Auto) [place] % (Auto) 9.8 H Lymph # [place] # 1.1 H Baso # Seg Neutrophils % 70.8 H Seg Neuts % (Manual) Lymphocytes % (Manual) Monocytes % (Manual) Eosinophils % (Manual) Basophils % (Manual) Nucleated RBC % Seg Neutrophils # 7.9 H Seg Neutrophils # Man Lymphocytes # (Manual) Monocytes # (Manual) Eosinophils # (Manual) Basophils # (Manual) PT INR Fibrinogen dRVVT Confirm Interp Factor V Activity POC ABG pH POC ABG pCO2 POC ABG pO2 ABG pO2 ABG HCO3 ABG Base Excess ABG Hemoglobin Oxyhemoglobin Sodium Potassium 3.3 L D Chloride Carbon Dioxide BUN 61 H Creatinine 1.9 H Glucose 114 H POC Glucose 115 H Lactic Acid Calcium Phosphorus 1.80 L D Magnesium Direct Bilirubin AST ALT Alkaline Phosphatase Lactate Dehydrogenase Troponin T C-Reactive Protein Total Protein Albumin Prealbumin Triglycerides Cholesterol LDL Cholesterol Direct HDL Cholesterol PTH Intact Urine pH Urine WBC (Auto) Urine Creatinine Urine Total Protein Fluid Total Protein Vancomycin Trough Rheumatoid Factor Complement C4 Miscellaneous Test Crossmatch 11/01/16 11/01/16 11/01/16 12:29 18:23 23:58 WBC RBC Hgb Hct MCV MCH MCHC RDW Plt Count Lymph % (Auto) [place] % (Auto) Lymph # [place] # Baso # Seg Neutrophils % Seg Neuts % (Manual) Lymphocytes % (Manual) Monocytes % (Manual) Eosinophils % (Manual) Basophils % (Manual) Nucleated RBC % Seg Neutrophils # Seg Neutrophils # Man Lymphocytes # (Manual) Monocytes # (Manual) Eosinophils # (Manual) Basophils # (Manual) PT INR Fibrinogen dRVVT Confirm Interp Factor V Activity POC ABG pH POC ABG pCO2 POC ABG pO2 ABG pO2 ABG HCO3 ABG Base Excess ABG Hemoglobin Oxyhemoglobin Sodium Potassium Chloride Carbon Dioxide BUN Creatinine Glucose POC Glucose 142 H 143 H 128 H Lactic Acid Calcium Phosphorus Magnesium Direct Bilirubin AST ALT Alkaline Phosphatase Lactate Dehydrogenase Troponin T C-Reactive Protein Total Protein Albumin Prealbumin Triglycerides Cholesterol LDL Cholesterol Direct HDL Cholesterol PTH Intact Urine pH Urine WBC (Auto) Urine Creatinine Urine Total Protein Fluid Total Protein Vancomycin Trough Rheumatoid Factor Complement C4 Miscellaneous Test Crossmatch 11/02/16 11/02/16 11/02/16 04:16 05:29 11:58 WBC RBC Hgb Hct MCV MCH MCHC RDW Plt Count Lymph % (Auto) [place] % (Auto) Lymph # [place] # Baso # Seg Neutrophils % Seg Neuts % (Manual) Lymphocytes % (Manual) Monocytes % (Manual) Eosinophils % (Manual) Basophils % (Manual) Nucleated RBC % Seg Neutrophils # Seg Neutrophils # Man Lymphocytes # (Manual) Monocytes # (Manual) Eosinophils # (Manual) Basophils # (Manual) PT INR Fibrinogen dRVVT Confirm Interp Factor V Activity POC ABG pH POC ABG pCO2 POC ABG pO2 ABG pO2 ABG HCO3 ABG Base Excess ABG Hemoglobin Oxyhemoglobin Sodium Potassium 3.1 L Chloride Carbon Dioxide BUN 73 H Creatinine 2.3 H Glucose 112 H POC Glucose 135 H 149 H Lactic Acid Calcium Phosphorus Magnesium Direct Bilirubin AST ALT Alkaline Phosphatase Lactate Dehydrogenase Troponin T C-Reactive Protein Total Protein Albumin Prealbumin Triglycerides Cholesterol LDL Cholesterol Direct HDL Cholesterol PTH Intact Urine pH Urine WBC (Auto) Urine Creatinine Urine Total Protein Fluid Total Protein Vancomycin Trough Rheumatoid Factor Complement C4 Miscellaneous Test Crossmatch 11/02/16 11/02/16 11/03/16 17:42 22:54 06:00 WBC RBC Hgb Hct MCV MCH MCHC RDW Plt Count Lymph % (Auto) [place] % (Auto) Lymph # [place] # Baso # Seg Neutrophils % Seg Neuts % (Manual) Lymphocytes % (Manual) Monocytes % (Manual) Eosinophils % (Manual) Basophils % (Manual) Nucleated RBC % Seg Neutrophils # Seg Neutrophils # Man Lymphocytes # (Manual) Monocytes # (Manual) Eosinophils # (Manual) Basophils # (Manual) PT INR Fibrinogen dRVVT Confirm Interp Factor V Activity POC ABG pH POC ABG pCO2 POC ABG pO2 ABG pO2 ABG HCO3 ABG Base Excess ABG Hemoglobin Oxyhemoglobin Sodium Potassium Chloride 96.7 L Carbon Dioxide BUN 41 H Creatinine 1.5 H Glucose 145 H POC Glucose 182 H 115 H Lactic Acid Calcium Phosphorus 1.60 L D Magnesium 1.50 L Direct Bilirubin AST ALT Alkaline Phosphatase Lactate Dehydrogenase Troponin T C-Reactive Protein Total Protein Albumin Prealbumin Triglycerides Cholesterol LDL Cholesterol Direct HDL Cholesterol PTH Intact Urine pH Urine WBC (Auto) Urine Creatinine Urine Total Protein Fluid Total Protein Vancomycin Trough Rheumatoid Factor Complement C4 Miscellaneous Test Crossmatch 11/03/16 11/03/16 11/03/16 11:53 17:45 23:37 WBC RBC Hgb Hct MCV MCH MCHC RDW Plt Count Lymph % (Auto) [place] % (Auto) Lymph # [place] # Baso # Seg Neutrophils % Seg Neuts % (Manual) Lymphocytes % (Manual) Monocytes % (Manual) Eosinophils % (Manual) Basophils % (Manual) Nucleated RBC % Seg Neutrophils # Seg Neutrophils # Man Lymphocytes # (Manual) Monocytes # (Manual) Eosinophils # (Manual) Basophils # (Manual) PT INR Fibrinogen dRVVT Confirm Interp Factor V Activity POC ABG pH POC ABG pCO2 POC ABG pO2 ABG pO2 ABG HCO3 ABG Base Excess ABG Hemoglobin Oxyhemoglobin Sodium Potassium Chloride Carbon Dioxide BUN Creatinine Glucose POC Glucose 131 H 134 H 113 H Lactic Acid Calcium Phosphorus Magnesium Direct Bilirubin AST ALT Alkaline Phosphatase Lactate Dehydrogenase Troponin T C-Reactive Protein Total Protein Albumin Prealbumin Triglycerides Cholesterol LDL Cholesterol Direct HDL Cholesterol PTH Intact Urine pH Urine WBC (Auto) Urine Creatinine Urine Total Protein Fluid Total Protein Vancomycin Trough Rheumatoid Factor Complement C4 Miscellaneous Test Crossmatch 11/04/16 11/04/16 11/04/16 05:41 06:00 12:10 WBC RBC Hgb Hct MCV MCH MCHC RDW Plt Count Lymph % (Auto) [place] % (Auto) Lymph # [place] # Baso # Seg Neutrophils % Seg Neuts % (Manual) Lymphocytes % (Manual) Monocytes % (Manual) Eosinophils % (Manual) Basophils % (Manual) Nucleated RBC % Seg Neutrophils # Seg Neutrophils # Man Lymphocytes # (Manual) Monocytes # (Manual) Eosinophils # (Manual) Basophils # (Manual) PT INR Fibrinogen dRVVT Confirm Interp Factor V Activity POC ABG pH POC ABG pCO2 POC ABG pO2 ABG pO2 ABG HCO3 ABG Base Excess ABG Hemoglobin Oxyhemoglobin Sodium Potassium Chloride 96.7 L Carbon Dioxide BUN 52 H Creatinine 1.9 H Glucose 126 H POC Glucose 137 H 191 H Lactic Acid Calcium Phosphorus Magnesium Direct Bilirubin AST ALT Alkaline Phosphatase Lactate Dehydrogenase Troponin T C-Reactive Protein Total Protein Albumin Prealbumin Triglycerides Cholesterol LDL Cholesterol Direct HDL Cholesterol PTH Intact Urine pH Urine WBC (Auto) Urine Creatinine Urine Total Protein Fluid Total Protein Vancomycin Trough Rheumatoid Factor Complement C4 Miscellaneous Test Crossmatch 11/04/16 11/05/16 11/05/16 22:57 03:10 05:10 WBC RBC Hgb Hct MCV MCH MCHC RDW Plt Count Lymph % (Auto) [place] % (Auto) Lymph # [place] # Baso # Seg Neutrophils % Seg Neuts % (Manual) Lymphocytes % (Manual) Monocytes % (Manual) Eosinophils % (Manual) Basophils % (Manual) Nucleated RBC % Seg Neutrophils # Seg Neutrophils # Man Lymphocytes # (Manual) Monocytes # (Manual) Eosinophils # (Manual) Basophils # (Manual) PT INR Fibrinogen dRVVT Confirm Interp Factor V Activity POC ABG pH POC ABG pCO2 POC ABG pO2 ABG pO2 ABG HCO3 ABG Base Excess ABG Hemoglobin Oxyhemoglobin Sodium 136 L Potassium Chloride 97.2 L Carbon Dioxide BUN 32 H Creatinine 1.3 H Glucose 123 H POC Glucose 125 H 108 H Lactic Acid Calcium 7.8 L Phosphorus Magnesium Direct Bilirubin AST ALT Alkaline Phosphatase Lactate Dehydrogenase Troponin T C-Reactive Protein Total Protein Albumin Prealbumin Triglycerides Cholesterol LDL Cholesterol Direct HDL Cholesterol PTH Intact Urine pH Urine WBC (Auto) Urine Creatinine Urine Total Protein Fluid Total Protein Vancomycin Trough Rheumatoid Factor Complement C4 Miscellaneous Test Crossmatch 11/05/16 11/05/16 11/05/16 12:23 13:09 13:25 WBC RBC Hgb Hct MCV MCH MCHC RDW Plt Count Lymph % (Auto) [place] % (Auto) Lymph # [place] # Baso # Seg Neutrophils % Seg Neuts % (Manual) Lymphocytes % (Manual) Monocytes % (Manual) Eosinophils % (Manual) Basophils % (Manual) Nucleated RBC % Seg Neutrophils # Seg Neutrophils # Man Lymphocytes # (Manual) Monocytes # (Manual) Eosinophils # (Manual) Basophils # (Manual) PT INR Fibrinogen dRVVT Confirm Interp Factor V Activity POC ABG pH POC ABG pCO2 POC ABG pO2 ABG pO2 ABG HCO3 ABG Base Excess ABG Hemoglobin Oxyhemoglobin Sodium Potassium Chloride Carbon Dioxide BUN Creatinine Glucose POC Glucose 124 H Lactic Acid Calcium Phosphorus Magnesium Direct Bilirubin AST ALT Alkaline Phosphatase Lactate Dehydrogenase Troponin T C-Reactive Protein 11.40 H Total Protein Albumin Prealbumin Triglycerides Cholesterol LDL Cholesterol Direct HDL Cholesterol PTH Intact Urine pH 9.0 H Urine WBC (Auto) Urine Creatinine Urine Total Protein Fluid Total Protein Vancomycin Trough Rheumatoid Factor Complement C4 Miscellaneous Test Crossmatch 11/05/16 11/05/16 11/05/16 13:25 17:54 23:42 WBC RBC Hgb Hct MCV MCH MCHC RDW Plt Count Lymph % (Auto) [place] % (Auto) Lymph # [place] # Baso # Seg Neutrophils % Seg Neuts % (Manual) Lymphocytes % (Manual) Monocytes % (Manual) Eosinophils % (Manual) Basophils % (Manual) Nucleated RBC % Seg Neutrophils # Seg Neutrophils # Man Lymphocytes # (Manual) Monocytes # (Manual) Eosinophils # (Manual) Basophils # (Manual) PT INR Fibrinogen dRVVT Confirm Interp Factor V Activity POC ABG pH POC ABG pCO2 POC ABG pO2 ABG pO2 ABG HCO3 ABG Base Excess ABG Hemoglobin Oxyhemoglobin Sodium Potassium Chloride Carbon Dioxide BUN Creatinine Glucose POC Glucose 114 H 134 H Lactic Acid Calcium Phosphorus Magnesium Direct Bilirubin AST ALT Alkaline Phosphatase Lactate Dehydrogenase Troponin T C-Reactive Protein Total Protein Albumin Prealbumin Triglycerides Cholesterol LDL Cholesterol Direct HDL Cholesterol PTH Intact Urine pH Urine WBC (Auto) Urine Creatinine Urine Total Protein Fluid Total Protein Vancomycin Trough Rheumatoid Factor Complement C4 Miscellaneous Test Flexitest 1 H Crossmatch 11/06/16 11/06/1611/06/17 04:56 06:25 06:25 WBC RBC 2.50 L Hgb 7.3 L Hct 22.5 L MCV MCH MCHC RDW 16.9 H Plt Count Lymph % (Auto) [place] % (Auto) 10.5 H Lymph # [place] # 1.1 H Baso # Seg Neutrophils % Seg Neuts % (Manual) Lymphocytes % (Manual) Monocytes % (Manual) Eosinophils % (Manual) Basophils % (Manual) Nucleated RBC % Seg Neutrophils # Seg Neutrophils # Man Lymphocytes # (Manual) Monocytes # (Manual) Eosinophils # (Manual) Basophils # (Manual) PT INR Fibrinogen dRVVT Confirm Interp Factor V Activity POC ABG pH POC ABG pCO2 POC ABG pO2 ABG pO2 ABG HCO3 ABG Base Excess ABG Hemoglobin Oxyhemoglobin Sodium Potassium 5.1 H Chloride 95.9 L Carbon Dioxide BUN 52 H Creatinine 1.8 H Glucose 117 H POC Glucose 120 H Lactic Acid Calcium Phosphorus Magnesium Direct Bilirubin AST 103 H ALT 77 H Alkaline Phosphatase 285 H Lactate Dehydrogenase Troponin T C-Reactive Protein Total Protein 6.2 L Albumin 1.8 L Prealbumin 0.180 L Triglycerides Cholesterol LDL Cholesterol Direct HDL Cholesterol PTH Intact Urine pH Urine WBC (Auto) Urine Creatinine Urine Total Protein Fluid Total Protein Vancomycin Trough Rheumatoid Factor Complement C4 Miscellaneous Test Crossmatch 11/06/16 11/06/16 11/06/16 11:56 17:14 23:52 WBC RBC Hgb Hct MCV MCH MCHC RDW Plt Count Lymph % (Auto) [place] % (Auto) Lymph # [place] # Baso # Seg Neutrophils % Seg Neuts % (Manual) Lymphocytes % (Manual) Monocytes % (Manual) Eosinophils % (Manual) Basophils % (Manual) Nucleated RBC % Seg Neutrophils # Seg Neutrophils # Man Lymphocytes # (Manual) Monocytes # (Manual) Eosinophils # (Manual) Basophils # (Manual) PT INR Fibrinogen dRVVT Confirm Interp Factor V Activity POC ABG pH POC ABG pCO2 POC ABG pO2 ABG pO2 ABG HCO3 ABG Base Excess ABG Hemoglobin Oxyhemoglobin Sodium Potassium Chloride Carbon Dioxide BUN Creatinine Glucose POC Glucose 141 H 125 H 130 H Lactic Acid Calcium Phosphorus Magnesium Direct Bilirubin AST ALT Alkaline Phosphatase Lactate Dehydrogenase Troponin T C-Reactive Protein Total Protein Albumin Prealbumin Triglycerides Cholesterol LDL Cholesterol Direct HDL Cholesterol PTH Intact Urine pH Urine WBC (Auto) Urine Creatinine Urine Total Protein Fluid Total Protein Vancomycin Trough Rheumatoid Factor Complement C4 Miscellaneous Test Crossmatch 11/07/16 11/07/16 11/07/16 06:30 06:30 09:37 WBC RBC 2.18 L Hgb 6.3 L Hct 19.7 L* MCV MCH MCHC RDW 16.8 H Plt Count Lymph % (Auto) [place] % (Auto) 10.0 H Lymph # [place] # 1.0 H Baso # Seg Neutrophils % Seg Neuts % (Manual) Lymphocytes % (Manual) Monocytes % (Manual) Eosinophils % (Manual) Basophils % (Manual) Nucleated RBC % Seg Neutrophils # Seg Neutrophils # Man Lymphocytes # (Manual) Monocytes # (Manual) Eosinophils # (Manual) Basophils # (Manual) PT INR Fibrinogen dRVVT Confirm Interp Factor V Activity POC ABG pH POC ABG pCO2 POC ABG pO2 ABG pO2 ABG HCO3 ABG Base Excess ABG Hemoglobin Oxyhemoglobin Sodium 135 L Potassium Chloride 95.6 L Carbon Dioxide BUN 70 H Creatinine 2.0 H Glucose 126 H POC Glucose Lactic Acid Calcium Phosphorus Magnesium Direct Bilirubin AST ALT Alkaline Phosphatase Lactate Dehydrogenase Troponin T C-Reactive Protein Total Protein Albumin Prealbumin Triglycerides Cholesterol LDL Cholesterol Direct HDL Cholesterol PTH Intact Urine pH Urine WBC (Auto) Urine Creatinine Urine Total Protein Fluid Total Protein Vancomycin Trough Rheumatoid Factor Complement C4 Miscellaneous Test Crossmatch See Detail 11/07/16 11/07/16 11/07/16 12:52 18:51 21:26 WBC RBC Hgb Hct MCV MCH MCHC RDW Plt Count Lymph % (Auto) [place] % (Auto) Lymph # [place] # Baso # Seg Neutrophils % Seg Neuts % (Manual) Lymphocytes % (Manual) Monocytes % (Manual) Eosinophils % (Manual) Basophils % (Manual) Nucleated RBC % Seg Neutrophils # Seg Neutrophils # Man Lymphocytes # (Manual) Monocytes # (Manual) Eosinophils # (Manual) Basophils # (Manual) PT INR Fibrinogen dRVVT Confirm Interp Factor V Activity POC ABG pH 7.523 H POC ABG pCO2 34.6 L POC ABG pO2 53 L ABG pO2 ABG HCO3 ABG Base Excess ABG Hemoglobin Oxyhemoglobin Sodium Potassium Chloride Carbon Dioxide BUN Creatinine Glucose POC Glucose 142 H 155 H Lactic Acid Calcium Phosphorus Magnesium Direct Bilirubin AST ALT Alkaline Phosphatase Lactate Dehydrogenase Troponin T C-Reactive Protein Total Protein Albumin Prealbumin Triglycerides Cholesterol LDL Cholesterol Direct HDL Cholesterol PTH Intact Urine pH Urine WBC (Auto) Urine Creatinine Urine Total Protein Fluid Total Protein Vancomycin Trough Rheumatoid Factor Complement C4 Miscellaneous Test Crossmatch 11/07/16 11/08/16 11/08/16 21:34 13:03 23:37 WBC RBC 2.63 L Hgb 7.7 L Hct 22.7 L MCV MCH MCHC RDW 17.0 H Plt Count Lymph % (Auto) [place] % (Auto) Lymph # [place] # Baso # Seg Neutrophils % Seg Neuts % (Manual) Lymphocytes % (Manual) Monocytes % (Manual) Eosinophils % (Manual) Basophils % (Manual) Nucleated RBC % Seg Neutrophils # Seg Neutrophils # Man Lymphocytes # (Manual) Monocytes # (Manual) Eosinophils # (Manual) Basophils # (Manual) PT INR Fibrinogen dRVVT Confirm Interp Factor V Activity POC ABG pH 7.478 H POC ABG pCO2 34.0 L POC ABG pO2 50 L ABG pO2 ABG HCO3 ABG Base Excess ABG Hemoglobin Oxyhemoglobin Sodium Potassium Chloride Carbon Dioxide BUN Creatinine Glucose POC Glucose 113 H Lactic Acid Calcium Phosphorus Magnesium Direct Bilirubin AST ALT Alkaline Phosphatase Lactate Dehydrogenase Troponin T C-Reactive Protein Total Protein Albumin Prealbumin Triglycerides Cholesterol LDL Cholesterol Direct HDL Cholesterol PTH Intact Urine pH Urine WBC (Auto) Urine Creatinine Urine Total Protein Fluid Total Protein Vancomycin Trough Rheumatoid Factor Complement C4 Miscellaneous Test Crossmatch 11/09/16 11/09/16 11/09/16 04:35 10:15 18:21 WBC RBC 2.68 L Hgb 7.8 L Hct 23.3 L MCV MCH MCHC RDW 17.0 H Plt Count Lymph % (Auto) [place] % (Auto) 12.1 H Lymph # [place] # 1.1 H Baso # Seg Neutrophils % Seg Neuts % (Manual) Lymphocytes % (Manual) Monocytes % (Manual) Eosinophils % (Manual) Basophils % (Manual) Nucleated RBC % Seg Neutrophils # Seg Neutrophils # Man Lymphocytes # (Manual) Monocytes # (Manual) Eosinophils # (Manual) Basophils # (Manual) PT INR Fibrinogen dRVVT Confirm Interp Factor V Activity POC ABG pH POC ABG pCO2 POC ABG pO2 ABG pO2 ABG HCO3 ABG Base Excess ABG Hemoglobin Oxyhemoglobin Sodium Potassium Chloride Carbon Dioxide BUN 51 H Creatinine 1.8 H Glucose POC Glucose 60 L Lactic Acid Calcium 8.3 L Phosphorus Magnesium Direct Bilirubin AST ALT Alkaline Phosphatase Lactate Dehydrogenase Troponin T C-Reactive Protein Total Protein Albumin Prealbumin Triglycerides Cholesterol LDL Cholesterol Direct HDL Cholesterol PTH Intact Urine pH Urine WBC (Auto) Urine Creatinine Urine Total Protein Fluid Total Protein Vancomycin Trough Rheumatoid Factor Complement C4 Miscellaneous Test Crossmatch 11/09/16 11/10/16 11/10/16 18:55 07:00 11:51 WBC RBC Hgb Hct MCV MCH MCHC RDW Plt Count Lymph % (Auto) [place] % (Auto) Lymph # [place] # Baso # Seg Neutrophils % Seg Neuts % (Manual) Lymphocytes % (Manual) Monocytes % (Manual) Eosinophils % (Manual) Basophils % (Manual) Nucleated RBC % Seg Neutrophils # Seg Neutrophils # Man Lymphocytes # (Manual) Monocytes # (Manual) Eosinophils # (Manual) Basophils # (Manual) PT INR Fibrinogen dRVVT Confirm Interp Factor V Activity POC ABG pH POC ABG pCO2 POC ABG pO2 ABG pO2 ABG HCO3 ABG Base Excess ABG Hemoglobin Oxyhemoglobin Sodium Potassium 3.0 L D Chloride 97.4 L Carbon Dioxide BUN 28 H Creatinine 1.3 H Glucose POC Glucose 68 L 120 H Lactic Acid Calcium 7.8 L Phosphorus Magnesium Direct Bilirubin AST ALT Alkaline Phosphatase Lactate Dehydrogenase Troponin T C-Reactive Protein Total Protein Albumin Prealbumin Triglycerides Cholesterol LDL Cholesterol Direct HDL Cholesterol PTH Intact Urine pH Urine WBC (Auto) Urine Creatinine Urine Total Protein Fluid Total Protein Vancomycin Trough Rheumatoid Factor Complement C4 Miscellaneous Test Crossmatch 11/10/16 11/11/16 11/11/16 14:20 06:59 06:59 WBC RBC 2.81 L Hgb 8.1 L Hct 24.4 L MCV MCH MCHC RDW 16.4 H Plt Count Lymph % (Auto) [place] % (Auto) 10.8 H Lymph # [place] # 1.0 H Baso # Seg Neutrophils % Seg Neuts % (Manual) Lymphocytes % (Manual) Monocytes % (Manual) Eosinophils % (Manual) Basophils % (Manual) Nucleated RBC % Seg Neutrophils # Seg Neutrophils # Man Lymphocytes # (Manual) Monocytes # (Manual) Eosinophils # (Manual) Basophils # (Manual) PT INR Fibrinogen dRVVT Confirm Interp Factor V Activity POC ABG pH POC ABG pCO2 POC ABG pO2 ABG pO2 ABG HCO3 ABG Base Excess ABG Hemoglobin Oxyhemoglobin Sodium Potassium Chloride Carbon Dioxide BUN Creatinine Glucose POC Glucose Lactic Acid Calcium Phosphorus Magnesium Direct Bilirubin AST ALT Alkaline Phosphatase Lactate Dehydrogenase 196 H Troponin T C-Reactive Protein Total Protein 6.1 L Albumin Prealbumin Triglycerides Cholesterol LDL Cholesterol Direct HDL Cholesterol PTH Intact Urine pH Urine WBC (Auto) Urine Creatinine Urine Total Protein Fluid Total Protein < 3.0 L Vancomycin Trough Rheumatoid Factor Complement C4 Miscellaneous Test Crossmatch 11/11/16 11/11/16 11/12/16 06:59 09:50 04:00 WBC RBC Hgb Hct MCV MCH MCHC RDW Plt Count Lymph % (Auto) [place] % (Auto) Lymph # [place] # Baso # Seg Neutrophils % Seg Neuts % (Manual) Lymphocytes % (Manual) Monocytes % (Manual) Eosinophils % (Manual) Basophils % (Manual) Nucleated RBC % Seg Neutrophils # Seg Neutrophils # Man Lymphocytes # (Manual) Monocytes # (Manual) Eosinophils # (Manual) Basophils # (Manual) PT INR 1.18 H Fibrinogen dRVVT Confirm Interp Factor V Activity POC ABG pH POC ABG pCO2 POC ABG pO2 ABG pO2 ABG HCO3 ABG Base Excess ABG Hemoglobin Oxyhemoglobin Sodium 136 L 133 L Potassium Chloride 96.1 L 94.8 L Carbon Dioxide 21 L BUN 37 H 42 H Creatinine 1.8 H 2.0 H Glucose POC Glucose Lactic Acid Calcium Phosphorus Magnesium Direct Bilirubin AST ALT Alkaline Phosphatase Lactate Dehydrogenase Troponin T C-Reactive Protein Total Protein Albumin Prealbumin Triglycerides Cholesterol LDL Cholesterol Direct HDL Cholesterol PTH Intact Urine pH Urine WBC (Auto) Urine Creatinine Urine Total Protein Fluid Total Protein Vancomycin Trough Rheumatoid Factor Complement C4 Miscellaneous Test Crossmatch 11/12/16 11/12/16 11/13/16 04:00 23:55 05:53 WBC RBC Hgb 8.9 L Hct 27.2 L MCV MCH MCHC RDW Plt Count Lymph % (Auto) [place] % (Auto) Lymph # [place] # Baso # Seg Neutrophils % Seg Neuts % (Manual) Lymphocytes % (Manual) Monocytes % (Manual) Eosinophils % (Manual) Basophils % (Manual) Nucleated RBC % Seg Neutrophils # Seg Neutrophils # Man Lymphocytes # (Manual) Monocytes # (Manual) Eosinophils # (Manual) Basophils # (Manual) PT INR Fibrinogen dRVVT Confirm Interp Factor V Activity POC ABG pH POC ABG pCO2 POC ABG pO2 ABG pO2 ABG HCO3 ABG Base Excess ABG Hemoglobin Oxyhemoglobin Sodium Potassium Chloride Carbon Dioxide BUN Creatinine Glucose POC Glucose 132 H 120 H Lactic Acid Calcium Phosphorus Magnesium Direct Bilirubin AST ALT Alkaline Phosphatase Lactate Dehydrogenase Troponin T C-Reactive Protein Total Protein Albumin Prealbumin Triglycerides Cholesterol LDL Cholesterol Direct HDL Cholesterol PTH Intact Urine pH Urine WBC (Auto) Urine Creatinine Urine Total Protein Fluid Total Protein Vancomycin Trough Rheumatoid Factor Complement C4 Miscellaneous Test Crossmatch 11/13/16 11/13/16 11/13/16 11:43 17:09 23:41 WBC RBC Hgb Hct MCV MCH MCHC RDW Plt Count Lymph % (Auto) [place] % (Auto) Lymph # [place] # Baso # Seg Neutrophils % Seg Neuts % (Manual) Lymphocytes % (Manual) Monocytes % (Manual) Eosinophils % (Manual) Basophils % (Manual) Nucleated RBC % Seg Neutrophils # Seg Neutrophils # Man Lymphocytes # (Manual) Monocytes # (Manual) Eosinophils # (Manual) Basophils # (Manual) PT INR Fibrinogen dRVVT Confirm Interp Factor V Activity POC ABG pH POC ABG pCO2 POC ABG pO2 ABG pO2 ABG HCO3 ABG Base Excess ABG Hemoglobin Oxyhemoglobin Sodium Potassium Chloride Carbon Dioxide BUN Creatinine Glucose POC Glucose 114 H 113 H 108 H Lactic Acid Calcium Phosphorus Magnesium Direct Bilirubin AST ALT Alkaline Phosphatase Lactate Dehydrogenase Troponin T C-Reactive Protein Total Protein Albumin Prealbumin Triglycerides Cholesterol LDL Cholesterol Direct HDL Cholesterol PTH Intact Urine pH Urine WBC (Auto) Urine Creatinine Urine Total Protein Fluid Total Protein Vancomycin Trough Rheumatoid Factor Complement C4 Miscellaneous Test Crossmatch 11/13/16 11/15/16 11/15/16 Unknown 00:37 03:30 WBC 11.2 H RBC 2.72 L Hgb 7.6 L Hct 23.4 L MCV MCH MCHC RDW 16.5 H Plt Count Lymph % (Auto) [place] % (Auto) Lymph # [place] # Baso # Seg Neutrophils % Seg Neuts % (Manual) Lymphocytes % (Manual) Monocytes % (Manual) Eosinophils % (Manual) Basophils % (Manual) Nucleated RBC % Seg Neutrophils # Seg Neutrophils # Man Lymphocytes # (Manual) Monocytes # (Manual) Eosinophils # (Manual) Basophils # (Manual) PT INR Fibrinogen dRVVT Confirm Interp Factor V Activity POC ABG pH POC ABG pCO2 POC ABG pO2 ABG pO2 ABG HCO3 ABG Base Excess ABG Hemoglobin Oxyhemoglobin Sodium 135 L Potassium Chloride 95.2 L Carbon Dioxide BUN 52 H Creatinine 2.2 H Glucose POC Glucose 108 H Lactic Acid Calcium Phosphorus Magnesium Direct Bilirubin AST ALT Alkaline Phosphatase Lactate Dehydrogenase Troponin T C-Reactive Protein Total Protein Albumin Prealbumin Triglycerides Cholesterol LDL Cholesterol Direct HDL Cholesterol PTH Intact Urine pH Urine WBC (Auto) Urine Creatinine Urine Total Protein Fluid Total Protein Vancomycin Trough Rheumatoid Factor Complement C4 Miscellaneous Test Crossmatch 11/15/16 11/15/16 11/15/16 03:30 05:04 11:50 WBC RBC Hgb Hct MCV MCH MCHC RDW Plt Count Lymph % (Auto) [place] % (Auto) Lymph # [place] # Baso # Seg Neutrophils % Seg Neuts % (Manual) Lymphocytes % (Manual) Monocytes % (Manual) Eosinophils % (Manual) Basophils % (Manual) Nucleated RBC % Seg Neutrophils # Seg Neutrophils # Man Lymphocytes # (Manual) Monocytes # (Manual) Eosinophils # (Manual) Basophils # (Manual) PT INR Fibrinogen dRVVT Confirm Interp Factor V Activity POC ABG pH POC ABG pCO2 POC ABG pO2 ABG pO2 ABG HCO3 ABG Base Excess ABG Hemoglobin Oxyhemoglobin Sodium Potassium 3.4 L Chloride Carbon Dioxide BUN 25 H Creatinine 1.5 H Glucose 103 H POC Glucose 121 H 144 H Lactic Acid Calcium Phosphorus Magnesium Direct Bilirubin AST ALT Alkaline Phosphatase Lactate Dehydrogenase Troponin T C-Reactive Protein Total Protein Albumin Prealbumin Triglycerides Cholesterol LDL Cholesterol Direct HDL Cholesterol PTH Intact Urine pH Urine WBC (Auto) Urine Creatinine Urine Total Protein Fluid Total Protein Vancomycin Trough Rheumatoid Factor Complement C4 Miscellaneous Test Crossmatch 11/15/16 11/15/16 11/16/16 21:28 23:20 11:44 WBC RBC Hgb Hct MCV MCH MCHC RDW Plt Count Lymph % (Auto) [place] % (Auto) Lymph # [place] # Baso # Seg Neutrophils % Seg Neuts % (Manual) Lymphocytes % (Manual) Monocytes % (Manual) Eosinophils % (Manual) Basophils % (Manual) Nucleated RBC % Seg Neutrophils # Seg Neutrophils # Man Lymphocytes # (Manual) Monocytes # (Manual) Eosinophils # (Manual) Basophils # (Manual) PT INR Fibrinogen dRVVT Confirm Interp Factor V Activity POC ABG pH 7.462 H POC ABG pCO2 POC ABG pO2 71 L ABG pO2 ABG HCO3 ABG Base Excess ABG Hemoglobin Oxyhemoglobin Sodium Potassium Chloride Carbon Dioxide BUN Creatinine Glucose POC Glucose 116 H 133 H Lactic Acid Calcium Phosphorus Magnesium Direct Bilirubin AST ALT Alkaline Phosphatase Lactate Dehydrogenase Troponin T C-Reactive Protein Total Protein Albumin Prealbumin Triglycerides Cholesterol LDL Cholesterol Direct HDL Cholesterol PTH Intact Urine pH Urine WBC (Auto) Urine Creatinine Urine Total Protein Fluid Total Protein Vancomycin Trough Rheumatoid Factor Complement C4 Miscellaneous Test Crossmatch 0911/16/16 11/16/16 12:20 17:05 23:35 WBC 11.7 H RBC 2.73 L Hgb 7.6 L Hct 23.7 L MCV MCH MCHC RDW 16.6 H Plt Count Lymph % (Auto) [place] % (Auto) Lymph # [place] # Baso # Seg Neutrophils % Seg Neuts % (Manual) Lymphocytes % (Manual) Monocytes % (Manual) Eosinophils % (Manual) Basophils % (Manual) Nucleated RBC % Seg Neutrophils # Seg Neutrophils # Man Lymphocytes # (Manual) Monocytes # (Manual) Eosinophils # (Manual) Basophils # (Manual) PT INR Fibrinogen dRVVT Confirm Interp Factor V Activity POC ABG pH POC ABG pCO2 POC ABG pO2 ABG pO2 ABG HCO3 ABG Base Excess ABG Hemoglobin Oxyhemoglobin Sodium Potassium Chloride Carbon Dioxide BUN Creatinine Glucose POC Glucose 154 H 125 H Lactic Acid Calcium Phosphorus Magnesium Direct Bilirubin AST ALT Alkaline Phosphatase Lactate Dehydrogenase Troponin T C-Reactive Protein Total Protein Albumin Prealbumin Triglycerides Cholesterol LDL Cholesterol Direct HDL Cholesterol PTH Intact Urine pH Urine WBC (Auto) Urine Creatinine Urine Total Protein Fluid Total Protein Vancomycin Trough Rheumatoid Factor Complement C4 Miscellaneous Test Crossmatch 11/17/16 11/17/16 11/17/16 03:20 03:20 03:20 WBC RBC 2.55 L Hgb 7.3 L Hct 21.9 L MCV MCH MCHC RDW 16.6 H Plt Count Lymph % (Auto) [place] % (Auto) 11.5 H Lymph # [place] # 1.1 H Baso # Seg Neutrophils % Seg Neuts % (Manual) Lymphocytes % (Manual) Monocytes % (Manual) Eosinophils % (Manual) Basophils % (Manual) Nucleated RBC % Seg Neutrophils # Seg Neutrophils # Man Lymphocytes # (Manual) Monocytes # (Manual) Eosinophils # (Manual) Basophils # (Manual) PT 16.8 H INR 1.37 H Fibrinogen dRVVT Confirm Interp Factor V Activity POC ABG pH POC ABG pCO2 POC ABG pO2 ABG pO2 ABG HCO3 ABG Base Excess ABG Hemoglobin Oxyhemoglobin Sodium Potassium 3.5 L Chloride Carbon Dioxide BUN 21 H Creatinine Glucose POC Glucose Lactic Acid Calcium 7.9 L Phosphorus Magnesium Direct Bilirubin AST ALT Alkaline Phosphatase Lactate Dehydrogenase Troponin T C-Reactive Protein Total Protein Albumin Prealbumin Triglycerides Cholesterol LDL Cholesterol Direct HDL Cholesterol PTH Intact Urine pH Urine WBC (Auto) Urine Creatinine Urine Total Protein Fluid Total Protein Vancomycin Trough Rheumatoid Factor Complement C4 Miscellaneous Test Crossmatch 11/17/16 11/17/16 11/17/16 06:34 11:21 21:22 WBC RBC Hgb Hct MCV MCH MCHC RDW Plt Count Lymph % (Auto) [place] % (Auto) Lymph # [place] # Baso # Seg Neutrophils % Seg Neuts % (Manual) Lymphocytes % (Manual) Monocytes % (Manual) Eosinophils % (Manual) Basophils % (Manual) Nucleated RBC % Seg Neutrophils # Seg Neutrophils # Man Lymphocytes # (Manual) Monocytes # (Manual) Eosinophils # (Manual) Basophils # (Manual) PT INR Fibrinogen dRVVT Confirm Interp Factor V Activity POC ABG pH 7.467 H POC ABG pCO2 POC ABG pO2 73 L ABG pO2 ABG HCO3 ABG Base Excess ABG Hemoglobin Oxyhemoglobin Sodium Potassium Chloride Carbon Dioxide BUN Creatinine Glucose POC Glucose 121 H 119 H Lactic Acid Calcium Phosphorus Magnesium Direct Bilirubin AST ALT Alkaline Phosphatase Lactate Dehydrogenase Troponin T C-Reactive Protein Total Protein Albumin Prealbumin Triglycerides Cholesterol LDL Cholesterol Direct HDL Cholesterol PTH Intact Urine pH Urine WBC (Auto) Urine Creatinine Urine Total Protein Fluid Total Protein Vancomycin Trough Rheumatoid Factor Complement C4 Miscellaneous Test Crossmatch 11/18/16 11/18/16 11/19/16 12:16 17:19 00:00 WBC RBC Hgb Hct MCV MCH MCHC RDW Plt Count Lymph % (Auto) [place] % (Auto) Lymph # [place] # Baso # Seg Neutrophils % Seg Neuts % (Manual) Lymphocytes % (Manual) Monocytes % (Manual) Eosinophils % (Manual) Basophils % (Manual) Nucleated RBC % Seg Neutrophils # Seg Neutrophils # Man Lymphocytes # (Manual) Monocytes # (Manual) Eosinophils # (Manual) Basophils # (Manual) PT INR Fibrinogen dRVVT Confirm Interp Factor V Activity POC ABG pH POC ABG pCO2 POC ABG pO2 ABG pO2 ABG HCO3 ABG Base Excess ABG Hemoglobin Oxyhemoglobin Sodium Potassium Chloride Carbon Dioxide BUN Creatinine Glucose POC Glucose 124 H 162 H 139 H Lactic Acid Calcium Phosphorus Magnesium Direct Bilirubin AST ALT Alkaline Phosphatase Lactate Dehydrogenase Troponin T C-Reactive Protein Total Protein Albumin Prealbumin Triglycerides Cholesterol LDL Cholesterol Direct HDL Cholesterol PTH Intact Urine pH Urine WBC (Auto) Urine Creatinine Urine Total Protein Fluid Total Protein Vancomycin Trough Rheumatoid Factor Complement C4 Miscellaneous Test Crossmatch 11/19/16 11/19/16 11/20/16 05:00 12:43 00:40 WBC RBC Hgb Hct MCV MCH MCHC RDW Plt Count Lymph % (Auto) [place] % (Auto) Lymph # [place] # Baso # Seg Neutrophils % Seg Neuts % (Manual) Lymphocytes % (Manual) Monocytes % (Manual) Eosinophils % (Manual) Basophils % (Manual) Nucleated RBC % Seg Neutrophils # Seg Neutrophils # Man Lymphocytes # (Manual) Monocytes # (Manual) Eosinophils # (Manual) Basophils # (Manual) PT INR Fibrinogen dRVVT Confirm Interp Factor V Activity POC ABG pH POC ABG pCO2 POC ABG pO2 ABG pO2 ABG HCO3 ABG Base Excess ABG Hemoglobin Oxyhemoglobin Sodium Potassium Chloride Carbon Dioxide BUN Creatinine Glucose POC Glucose 110 H 125 H 136 H Lactic Acid Calcium Phosphorus Magnesium Direct Bilirubin AST ALT Alkaline Phosphatase Lactate Dehydrogenase Troponin T C-Reactive Protein Total Protein Albumin Prealbumin Triglycerides Cholesterol LDL Cholesterol Direct HDL Cholesterol PTH Intact Urine pH Urine WBC (Auto) Urine Creatinine Urine Total Protein Fluid Total Protein Vancomycin Trough Rheumatoid Factor Complement C4 Miscellaneous Test Crossmatch 11/20/16 11/20/16 11/20/16 05:00 05:00 05:51 WBC 13.1 H RBC 2.74 L Hgb 7.7 L Hct 23.6 L MCV MCH MCHC RDW 16.9 H Plt Count Lymph % (Auto) [place] % (Auto) 10.8 H Lymph # [place] # 1.4 H Baso # Seg Neutrophils % Seg Neuts % (Manual) Lymphocytes % (Manual) Monocytes % (Manual) Eosinophils % (Manual) Basophils % (Manual) Nucleated RBC % Seg Neutrophils # 7.9 H Seg Neutrophils # Man Lymphocytes # (Manual) Monocytes # (Manual) Eosinophils # (Manual) Basophils # (Manual) PT INR Fibrinogen dRVVT Confirm Interp Factor V Activity POC ABG pH POC ABG pCO2 POC ABG pO2 ABG pO2 ABG HCO3 ABG Base Excess ABG Hemoglobin Oxyhemoglobin Sodium Potassium Chloride Carbon Dioxide BUN 31 H Creatinine 1.8 H Glucose 129 H POC Glucose 133 H Lactic Acid Calcium Phosphorus Magnesium Direct Bilirubin AST ALT Alkaline Phosphatase Lactate Dehydrogenase Troponin T C-Reactive Protein Total Protein Albumin Prealbumin Triglycerides Cholesterol LDL Cholesterol Direct HDL Cholesterol PTH Intact Urine pH Urine WBC (Auto) Urine Creatinine Urine Total Protein Fluid Total Protein Vancomycin Trough Rheumatoid Factor Complement C4 Miscellaneous Test Crossmatch 11/20/16 11/20/16 11/21/16 12:40 18:10 01:20 WBC RBC Hgb Hct MCV MCH MCHC RDW Plt Count Lymph % (Auto) [place] % (Auto) Lymph # [place] # Baso # Seg Neutrophils % Seg Neuts % (Manual) Lymphocytes % (Manual) Monocytes % (Manual) Eosinophils % (Manual) Basophils % (Manual) Nucleated RBC % Seg Neutrophils # Seg Neutrophils # Man Lymphocytes # (Manual) Monocytes # (Manual) Eosinophils # (Manual) Basophils # (Manual) PT INR Fibrinogen dRVVT Confirm Interp Factor V Activity POC ABG pH POC ABG pCO2 POC ABG pO2 ABG pO2 ABG HCO3 ABG Base Excess ABG Hemoglobin Oxyhemoglobin Sodium Potassium Chloride Carbon Dioxide BUN Creatinine Glucose POC Glucose 134 H 138 H 136 H Lactic Acid Calcium Phosphorus Magnesium Direct Bilirubin AST ALT Alkaline Phosphatase Lactate Dehydrogenase Troponin T C-Reactive Protein Total Protein Albumin Prealbumin Triglycerides Cholesterol LDL Cholesterol Direct HDL Cholesterol PTH Intact Urine pH Urine WBC (Auto) Urine Creatinine Urine Total Protein Fluid Total Protein Vancomycin Trough Rheumatoid Factor Complement C4 Miscellaneous Test Crossmatch 11/21/16 11/21/16 11/21/16 07:04 07:45 07:45 WBC 22.0 H RBC 2.91 L Hgb 8.2 L Hct 25.4 L MCV MCH MCHC RDW 17.1 H Plt Count Lymph % (Auto) [place] % (Auto) Lymph # [place] # Baso # Seg Neutrophils % Seg Neuts % (Manual) Lymphocytes % (Manual) 8.0 L Monocytes % (Manual) Eosinophils % (Manual) Basophils % (Manual) Nucleated RBC % Seg Neutrophils # Seg Neutrophils # Man 14.7 H Lymphocytes # (Manual) Monocytes # (Manual) 1.1 H Eosinophils # (Manual) Basophils # (Manual) PT INR Fibrinogen dRVVT Confirm Interp Factor V Activity POC ABG pH POC ABG pCO2 POC ABG pO2 ABG pO2 ABG HCO3 ABG Base Excess ABG Hemoglobin Oxyhemoglobin Sodium Potassium Chloride Carbon Dioxide BUN 42 H Creatinine 2.0 H Glucose POC Glucose 108 H Lactic Acid Calcium Phosphorus Magnesium Direct Bilirubin AST ALT Alkaline Phosphatase Lactate Dehydrogenase Troponin T C-Reactive Protein Total Protein Albumin Prealbumin Triglycerides Cholesterol LDL Cholesterol Direct HDL Cholesterol PTH Intact Urine pH Urine WBC (Auto) Urine Creatinine Urine Total Protein Fluid Total Protein Vancomycin Trough Rheumatoid Factor Complement C4 Miscellaneous Test Crossmatch 11/21/16 11/21/16 11/21/16 08:38 10:09 11:20 WBC RBC Hgb Hct MCV MCH MCHC RDW Plt Count Lymph % (Auto) [place] % (Auto) Lymph # [place] # Baso # Seg Neutrophils % Seg Neuts % (Manual) Lymphocytes % (Manual) Monocytes % (Manual) Eosinophils % (Manual) Basophils % (Manual) Nucleated RBC % Seg Neutrophils # Seg Neutrophils # Man Lymphocytes # (Manual) Monocytes # (Manual) Eosinophils # (Manual) Basophils # (Manual) PT INR Fibrinogen dRVVT Confirm Interp Factor V Activity POC ABG pH 7.346 L POC ABG pCO2 34.4 L POC ABG pO2 314 H ABG pO2 ABG HCO3 ABG Base Excess ABG Hemoglobin Oxyhemoglobin Sodium Potassium Chloride Carbon Dioxide BUN Creatinine Glucose POC Glucose 195 H 153 H Lactic Acid Calcium Phosphorus Magnesium Direct Bilirubin AST ALT Alkaline Phosphatase Lactate Dehydrogenase Troponin T C-Reactive Protein Total Protein Albumin Prealbumin Triglycerides Cholesterol LDL Cholesterol Direct HDL Cholesterol PTH Intact Urine pH Urine WBC (Auto) Urine Creatinine Urine Total Protein Fluid Total Protein Vancomycin Trough Rheumatoid Factor Complement C4 Miscellaneous Test Crossmatch 11/21/16 11/22/16 11/22/16 23:37 04:48 05:00 WBC 29.7 H RBC 2.73 L Hgb 7.5 L Hct 24.2 L MCV MCH 27 L MCHC RDW 17.4 H Plt Count Lymph % (Auto) [place] % (Auto) Lymph # [place] # Baso # Seg Neutrophils % Seg Neuts % (Manual) Lymphocytes % (Manual) 7.0 L Monocytes % (Manual) Eosinophils % (Manual) Basophils % (Manual) Nucleated RBC % Seg Neutrophils # Seg Neutrophils # Man 15.4 H Lymphocytes # (Manual) Monocytes # (Manual) Eosinophils # (Manual) Basophils # (Manual) PT INR Fibrinogen dRVVT Confirm Interp Factor V Activity POC ABG pH POC ABG pCO2 24.6 L POC ABG pO2 189 H ABG pO2 ABG HCO3 ABG Base Excess ABG Hemoglobin Oxyhemoglobin Sodium Potassium Chloride Carbon Dioxide BUN Creatinine Glucose POC Glucose 65 L Lactic Acid Calcium Phosphorus Magnesium Direct Bilirubin AST ALT Alkaline Phosphatase Lactate Dehydrogenase Troponin T C-Reactive Protein Total Protein Albumin Prealbumin Triglycerides Cholesterol LDL Cholesterol Direct HDL Cholesterol PTH Intact Urine pH Urine WBC (Auto) Urine Creatinine Urine Total Protein Fluid Total Protein Vancomycin Trough Rheumatoid Factor Complement C4 Miscellaneous Test Crossmatch 11/22/16 11/23/16 11/23/16 05:00 03:44 04:06 WBC RBC 2.52 L Hgb 7.2 L Hct 21.5 L MCV MCH MCHC RDW 17.1 H Plt Count Lymph % (Auto) [place] % (Auto) 12.4 H Lymph # [place] # 1.4 H Baso # Seg Neutrophils % Seg Neuts % (Manual) Lymphocytes % (Manual) Monocytes % (Manual) Eosinophils % (Manual) Basophils % (Manual) Nucleated RBC % Seg Neutrophils # Seg Neutrophils # Man Lymphocytes # (Manual) Monocytes # (Manual) Eosinophils # (Manual) Basophils # (Manual) PT INR Fibrinogen dRVVT Confirm Interp Factor V Activity POC ABG pH 7.493 H POC ABG pCO2 29.5 L POC ABG pO2 49 L ABG pO2 ABG HCO3 ABG Base Excess ABG Hemoglobin Oxyhemoglobin Sodium 134 L Potassium Chloride 95.9 L Carbon Dioxide 14 L D BUN 51 H Creatinine 2.6 H Glucose POC Glucose Lactic Acid Calcium Phosphorus Magnesium Direct Bilirubin AST ALT Alkaline Phosphatase Lactate Dehydrogenase Troponin T C-Reactive Protein Total Protein Albumin Prealbumin Triglycerides Cholesterol LDL Cholesterol Direct HDL Cholesterol PTH Intact Urine pH Urine WBC (Auto) Urine Creatinine Urine Total Protein Fluid Total Protein Vancomycin Trough Rheumatoid Factor Complement C4 Miscellaneous Test Crossmatch 11/23/16 11/23/16 11/24/16 04:06 11:29 06:39 WBC RBC Hgb Hct MCV MCH MCHC RDW Plt Count Lymph % (Auto) [place] % (Auto) Lymph # [place] # Baso # Seg Neutrophils % Seg Neuts % (Manual) Lymphocytes % (Manual) Monocytes % (Manual) Eosinophils % (Manual) Basophils % (Manual) Nucleated RBC % Seg Neutrophils # Seg Neutrophils # Man Lymphocytes # (Manual) Monocytes # (Manual) Eosinophils # (Manual) Basophils # (Manual) PT INR Fibrinogen dRVVT Confirm Interp Factor V Activity POC ABG pH POC ABG pCO2 POC ABG pO2 ABG pO2 ABG HCO3 ABG Base Excess ABG Hemoglobin Oxyhemoglobin Sodium 136 L Potassium Chloride 95.2 L Carbon Dioxide BUN 60 H Creatinine 2.9 H Glucose POC Glucose 69 L 305 H Lactic Acid Calcium Phosphorus Magnesium 1.60 L Direct Bilirubin AST ALT Alkaline Phosphatase Lactate Dehydrogenase Troponin T C-Reactive Protein Total Protein Albumin Prealbumin Triglycerides Cholesterol LDL Cholesterol Direct HDL Cholesterol PTH Intact Urine pH Urine WBC (Auto) Urine Creatinine Urine Total Protein Fluid Total Protein Vancomycin Trough Rheumatoid Factor Complement C4 Miscellaneous Test Crossmatch 11/24/16 11/24/1611/24/17 06:43 08:08 08:08 WBC 11.2 H RBC 2.47 L Hgb 6.8 L Hct 20.6 L MCV MCH MCHC RDW 17.0 H Plt Count Lymph % (Auto) [place] % (Auto) 10.3 H Lymph # [place] # 1.2 H Baso # Seg Neutrophils % Seg Neuts % (Manual) Lymphocytes % (Manual) Monocytes % (Manual) Eosinophils % (Manual) Basophils % (Manual) Nucleated RBC % Seg Neutrophils # Seg Neutrophils # Man Lymphocytes # (Manual) Monocytes # (Manual) Eosinophils # (Manual) Basophils # (Manual) PT INR Fibrinogen dRVVT Confirm Interp Factor V Activity POC ABG pH POC ABG pCO2 POC ABG pO2 ABG pO2 ABG HCO3 ABG Base Excess ABG Hemoglobin Oxyhemoglobin Sodium 135 L Potassium Chloride 96.3 L Carbon Dioxide BUN 61 H Creatinine 3.1 H Glucose POC Glucose 62 L Lactic Acid Calcium 8.2 L Phosphorus Magnesium Direct Bilirubin AST ALT Alkaline Phosphatase Lactate Dehydrogenase Troponin T C-Reactive Protein Total Protein Albumin Prealbumin Triglycerides Cholesterol LDL Cholesterol Direct HDL Cholesterol PTH Intact Urine pH Urine WBC (Auto) Urine Creatinine Urine Total Protein Fluid Total Protein Vancomycin Trough Rheumatoid Factor Complement C4 Miscellaneous Test Crossmatch 11/24/16 11/24/16 11/24/16 08:34 11:20 12:41 WBC RBC Hgb Hct MCV MCH MCHC RDW Plt Count Lymph % (Auto) [place] % (Auto) Lymph # [place] # Baso # Seg Neutrophils % Seg Neuts % (Manual) Lymphocytes % (Manual) Monocytes % (Manual) Eosinophils % (Manual) Basophils % (Manual) Nucleated RBC % Seg Neutrophils # Seg Neutrophils # Man Lymphocytes # (Manual) Monocytes # (Manual) Eosinophils # (Manual) Basophils # (Manual) PT INR Fibrinogen dRVVT Confirm Interp Factor V Activity POC ABG pH POC ABG pCO2 POC ABG pO2 ABG pO2 ABG HCO3 ABG Base Excess ABG Hemoglobin Oxyhemoglobin Sodium Potassium Chloride Carbon Dioxide BUN Creatinine Glucose POC Glucose 108 H Lactic Acid Calcium Phosphorus Magnesium 1.60 L Direct Bilirubin AST ALT Alkaline Phosphatase Lactate Dehydrogenase Troponin T C-Reactive Protein Total Protein Albumin Prealbumin Triglycerides Cholesterol LDL Cholesterol Direct HDL Cholesterol PTH Intact Urine pH Urine WBC (Auto) Urine Creatinine Urine Total Protein Fluid Total Protein Vancomycin Trough Rheumatoid Factor Complement C4 Miscellaneous Test Crossmatch See Detail 11/25/16 11/25/16 11/25/16 00:03 04:42 04:42 WBC RBC 3.03 L Hgb 8.6 L Hct 25.3 L MCV MCH MCHC RDW 16.2 H Plt Count Lymph % (Auto) [place] % (Auto) 8.1 H Lymph # [place] # Baso # Seg Neutrophils % 71.3 H Seg Neuts % (Manual) Lymphocytes % (Manual) Monocytes % (Manual) Eosinophils % (Manual) Basophils % (Manual) Nucleated RBC % Seg Neutrophils # Seg Neutrophils # Man Lymphocytes # (Manual) Monocytes # (Manual) Eosinophils # (Manual) Basophils # (Manual) PT INR Fibrinogen dRVVT Confirm Interp Factor V Activity POC ABG pH POC ABG pCO2 POC ABG pO2 ABG pO2 ABG HCO3 ABG Base Excess ABG Hemoglobin Oxyhemoglobin Sodium Potassium Chloride Carbon Dioxide BUN 61 H Creatinine 3.0 H Glucose 102 H POC Glucose 113 H Lactic Acid Calcium 8.2 L Phosphorus Magnesium Direct Bilirubin AST ALT Alkaline Phosphatase 142 H Lactate Dehydrogenase Troponin T C-Reactive Protein Total Protein 5.7 L Albumin 1.5 L Prealbumin Triglycerides Cholesterol LDL Cholesterol Direct HDL Cholesterol PTH Intact Urine pH Urine WBC (Auto) Urine Creatinine Urine Total Protein Fluid Total Protein Vancomycin Trough Rheumatoid Factor Complement C4 Miscellaneous Test Crossmatch 11/25/16 11/25/16 11/25/16 05:12 11:31 14:12 WBC RBC Hgb Hct MCV MCH MCHC RDW Plt Count Lymph % (Auto) [place] % (Auto) Lymph # [place] # Baso # Seg Neutrophils % Seg Neuts % (Manual) Lymphocytes % (Manual) Monocytes % (Manual) Eosinophils % (Manual) Basophils % (Manual) Nucleated RBC % Seg Neutrophils # Seg Neutrophils # Man Lymphocytes # (Manual) Monocytes # (Manual) Eosinophils # (Manual) Basophils # (Manual) PT INR Fibrinogen dRVVT Confirm Interp Factor V Activity POC ABG pH 7.487 H POC ABG pCO2 POC ABG pO2 153 H ABG pO2 ABG HCO3 ABG Base Excess ABG Hemoglobin Oxyhemoglobin Sodium Potassium Chloride Carbon Dioxide BUN Creatinine Glucose POC Glucose 131 H 140 H Lactic Acid Calcium Phosphorus Magnesium Direct Bilirubin AST ALT Alkaline Phosphatase Lactate Dehydrogenase Troponin T C-Reactive Protein Total Protein Albumin Prealbumin Triglycerides Cholesterol LDL Cholesterol Direct HDL Cholesterol PTH Intact Urine pH Urine WBC (Auto) Urine Creatinine Urine Total Protein Fluid Total Protein Vancomycin Trough Rheumatoid Factor Complement C4 Miscellaneous Test Crossmatch 11/25/16 11/26/16 11/26/16 17:23 00:09 05:13 WBC RBC 2.94 L Hgb 8.4 L Hct 24.6 L MCV MCH MCHC RDW 16.4 H Plt Count Lymph % (Auto) [place] % (Auto) 12.3 H Lymph # [place] # 1.1 H Baso # Seg Neutrophils % Seg Neuts % (Manual) Lymphocytes % (Manual) Monocytes % (Manual) Eosinophils % (Manual) Basophils % (Manual) Nucleated RBC % Seg Neutrophils # Seg Neutrophils # Man Lymphocytes # (Manual) Monocytes # (Manual) Eosinophils # (Manual) Basophils # (Manual) PT INR Fibrinogen dRVVT Confirm Interp Factor V Activity POC ABG pH POC ABG pCO2 POC ABG pO2 ABG pO2 ABG HCO3 ABG Base Excess ABG Hemoglobin Oxyhemoglobin Sodium Potassium Chloride Carbon Dioxide BUN Creatinine Glucose POC Glucose 146 H 112 H Lactic Acid Calcium Phosphorus Magnesium Direct Bilirubin AST ALT Alkaline Phosphatase Lactate Dehydrogenase Troponin T C-Reactive Protein Total Protein Albumin Prealbumin Triglycerides Cholesterol LDL Cholesterol Direct HDL Cholesterol PTH Intact Urine pH Urine WBC (Auto) Urine Creatinine Urine Total Protein Fluid Total Protein Vancomycin Trough Rheumatoid Factor Complement C4 Miscellaneous Test Crossmatch 11/26/16 11/26/16 11/26/16 05:13 05:28 11:53 WBC RBC Hgb Hct MCV MCH MCHC RDW Plt Count Lymph % (Auto) [place] % (Auto) Lymph # [place] # Baso # Seg Neutrophils % Seg Neuts % (Manual) Lymphocytes % (Manual) Monocytes % (Manual) Eosinophils % (Manual) Basophils % (Manual) Nucleated RBC % Seg Neutrophils # Seg Neutrophils # Man Lymphocytes # (Manual) Monocytes # (Manual) Eosinophils # (Manual) Basophils # (Manual) PT INR Fibrinogen dRVVT Confirm Interp Factor V Activity POC ABG pH POC ABG pCO2 POC ABG pO2 ABG pO2 ABG HCO3 ABG Base Excess ABG Hemoglobin Oxyhemoglobin Sodium Potassium Chloride 97.8 L Carbon Dioxide BUN 37 H Creatinine 2.0 H Glucose 109 H POC Glucose 117 H 111 H Lactic Acid Calcium 7.9 L Phosphorus 1.80 L D Magnesium Direct Bilirubin AST ALT Alkaline Phosphatase Lactate Dehydrogenase Troponin T C-Reactive Protein Total Protein Albumin Prealbumin Triglycerides Cholesterol LDL Cholesterol Direct HDL Cholesterol PTH Intact Urine pH Urine WBC (Auto) Urine Creatinine Urine Total Protein Fluid Total Protein Vancomycin Trough Rheumatoid Factor Complement C4 Miscellaneous Test Crossmatch 11/26/16 11/27/16 11/27/16 17:14 04:50 06:02 WBC RBC Hgb Hct MCV MCH MCHC RDW Plt Count Lymph % (Auto) [place] % (Auto) Lymph # [place] # Baso # Seg Neutrophils % Seg Neuts % (Manual) Lymphocytes % (Manual) Monocytes % (Manual) Eosinophils % (Manual) Basophils % (Manual) Nucleated RBC % Seg Neutrophils # Seg Neutrophils # Man Lymphocytes # (Manual) Monocytes # (Manual) Eosinophils # (Manual) Basophils # (Manual) PT INR Fibrinogen dRVVT Confirm Interp Factor V Activity POC ABG pH POC ABG pCO2 POC ABG pO2 ABG pO2 75.2 L ABG HCO3 26.4 H ABG Base Excess ABG Hemoglobin 7.6 L Oxyhemoglobin 94.8 L Sodium Potassium Chloride Carbon Dioxide BUN 49 H Creatinine 2.3 H Glucose POC Glucose 115 H Lactic Acid Calcium Phosphorus 1.50 L Magnesium Direct Bilirubin AST ALT Alkaline Phosphatase Lactate Dehydrogenase Troponin T C-Reactive Protein Total Protein Albumin Prealbumin Triglycerides Cholesterol LDL Cholesterol Direct HDL Cholesterol PTH Intact Urine pH Urine WBC (Auto) Urine Creatinine Urine Total Protein Fluid Total Protein Vancomycin Trough Rheumatoid Factor Complement C4 Miscellaneous Test Crossmatch 11/27/16 11/27/16 11/27/16 06:02 11:25 17:25 WBC 11.6 H RBC 2.75 L Hgb 7.6 L Hct 23.4 L MCV MCH MCHC RDW 16.5 H Plt Count Lymph % (Auto) [place] % (Auto) Lymph # [place] # Baso # Seg Neutrophils % Seg Neuts % (Manual) Lymphocytes % (Manual) Monocytes % (Manual) Eosinophils % (Manual) Basophils % (Manual) Nucleated RBC % Seg Neutrophils # Seg Neutrophils # Man Lymphocytes # (Manual) Monocytes # (Manual) Eosinophils # (Manual) Basophils # (Manual) PT INR Fibrinogen dRVVT Confirm Interp Factor V Activity POC ABG pH POC ABG pCO2 POC ABG pO2 ABG pO2 ABG HCO3 ABG Base Excess ABG Hemoglobin Oxyhemoglobin Sodium Potassium Chloride Carbon Dioxide BUN Creatinine Glucose POC Glucose 114 H 126 H Lactic Acid Calcium Phosphorus Magnesium Direct Bilirubin AST ALT Alkaline Phosphatase Lactate Dehydrogenase Troponin T C-Reactive Protein Total Protein Albumin Prealbumin Triglycerides Cholesterol LDL Cholesterol Direct HDL Cholesterol PTH Intact Urine pH Urine WBC (Auto) Urine Creatinine Urine Total Protein Fluid Total Protein Vancomycin Trough Rheumatoid Factor Complement C4 Miscellaneous Test Crossmatch 11/28/16 11/28/16 11/28/16 04:45 05:33 05:44 WBC RBC Hgb Hct MCV MCH MCHC RDW Plt Count Lymph % (Auto) [place] % (Auto) Lymph # [place] # Baso # Seg Neutrophils % Seg Neuts % (Manual) Lymphocytes % (Manual) Monocytes % (Manual) Eosinophils % (Manual) Basophils % (Manual) Nucleated RBC % Seg Neutrophils # Seg Neutrophils # Man Lymphocytes # (Manual) Monocytes # (Manual) Eosinophils # (Manual) Basophils # (Manual) PT INR Fibrinogen dRVVT Confirm Interp Factor V Activity POC ABG pH POC ABG pCO2 POC ABG pO2 ABG pO2 99.3 H ABG HCO3 ABG Base Excess ABG Hemoglobin 8.3 L Oxyhemoglobin Sodium Potassium Chloride Carbon Dioxide BUN 63 H Creatinine 2.4 H Glucose 102 H POC Glucose 108 H Lactic Acid Calcium Phosphorus 1.80 L Magnesium Direct Bilirubin AST ALT Alkaline Phosphatase Lactate Dehydrogenase Troponin T C-Reactive Protein Total Protein Albumin Prealbumin Triglycerides Cholesterol LDL Cholesterol Direct HDL Cholesterol PTH Intact Urine pH Urine WBC (Auto) Urine Creatinine Urine Total Protein Fluid Total Protein Vancomycin Trough Rheumatoid Factor Complement C4 Miscellaneous Test Crossmatch 11/28/16 11/28/16 11/28/16 12:31 16:09 23:46 WBC RBC Hgb Hct MCV MCH MCHC RDW Plt Count Lymph % (Auto) [place] % (Auto) Lymph # [place] # Baso # Seg Neutrophils % Seg Neuts % (Manual) Lymphocytes % (Manual) Monocytes % (Manual) Eosinophils % (Manual) Basophils % (Manual) Nucleated RBC % Seg Neutrophils # Seg Neutrophils # Man Lymphocytes # (Manual) Monocytes # (Manual) Eosinophils # (Manual) Basophils # (Manual) PT INR Fibrinogen dRVVT Confirm Interp Factor V Activity POC ABG pH POC ABG pCO2 POC ABG pO2 ABG pO2 ABG HCO3 ABG Base Excess ABG Hemoglobin Oxyhemoglobin Sodium Potassium Chloride Carbon Dioxide BUN Creatinine Glucose POC Glucose 126 H 111 H 119 H Lactic Acid Calcium Phosphorus Magnesium Direct Bilirubin AST ALT Alkaline Phosphatase Lactate Dehydrogenase Troponin T C-Reactive Protein Total Protein Albumin Prealbumin Triglycerides Cholesterol LDL Cholesterol Direct HDL Cholesterol PTH Intact Urine pH Urine WBC (Auto) Urine Creatinine Urine Total Protein Fluid Total Protein Vancomycin Trough Rheumatoid Factor Complement C4 Miscellaneous Test Crossmatch 11/29/16 11/29/16 11/29/16 03:33 04:52 05:10 WBC RBC Hgb Hct MCV MCH MCHC RDW Plt Count Lymph % (Auto) [place] % (Auto) Lymph # [place] # Baso # Seg Neutrophils % Seg Neuts % (Manual) Lymphocytes % (Manual) Monocytes % (Manual) Eosinophils % (Manual) Basophils % (Manual) Nucleated RBC % Seg Neutrophils # Seg Neutrophils # Man Lymphocytes # (Manual) Monocytes # (Manual) Eosinophils # (Manual) Basophils # (Manual) PT INR Fibrinogen dRVVT Confirm Interp Factor V Activity POC ABG pH POC ABG pCO2 POC ABG pO2 ABG pO2 ABG HCO3 ABG Base Excess ABG Hemoglobin 7.0 L Oxyhemoglobin 94.9 L Sodium Potassium Chloride Carbon Dioxide BUN 73 H Creatinine 2.7 H Glucose POC Glucose 108 H Lactic Acid Calcium Phosphorus Magnesium Direct Bilirubin AST ALT Alkaline Phosphatase Lactate Dehydrogenase Troponin T C-Reactive Protein Total Protein Albumin Prealbumin Triglycerides Cholesterol LDL Cholesterol Direct HDL Cholesterol PTH Intact Urine pH Urine WBC (Auto) Urine Creatinine Urine Total Protein Fluid Total Protein Vancomycin Trough Rheumatoid Factor Complement C4 Miscellaneous Test Crossmatch 11/29/16 11/29/16 11/29/16 12:16 18:05 23:46 WBC RBC Hgb Hct MCV MCH MCHC RDW Plt Count Lymph % (Auto) [place] % (Auto) Lymph # [place] # Baso # Seg Neutrophils % Seg Neuts % (Manual) Lymphocytes % (Manual) Monocytes % (Manual) Eosinophils % (Manual) Basophils % (Manual) Nucleated RBC % Seg Neutrophils # Seg Neutrophils # Man Lymphocytes # (Manual) Monocytes # (Manual) Eosinophils # (Manual) Basophils # (Manual) PT INR Fibrinogen dRVVT Confirm Interp Factor V Activity POC ABG pH POC ABG pCO2 POC ABG pO2 ABG pO2 ABG HCO3 ABG Base Excess ABG Hemoglobin Oxyhemoglobin Sodium Potassium Chloride Carbon Dioxide BUN Creatinine Glucose POC Glucose 133 H 146 H 141 H Lactic Acid Calcium Phosphorus Magnesium Direct Bilirubin AST ALT Alkaline Phosphatase Lactate Dehydrogenase Troponin T C-Reactive Protein Total Protein Albumin Prealbumin Triglycerides Cholesterol LDL Cholesterol Direct HDL Cholesterol PTH Intact Urine pH Urine WBC (Auto) Urine Creatinine Urine Total Protein Fluid Total Protein Vancomycin Trough Rheumatoid Factor Complement C4 Miscellaneous Test Crossmatch 11/30/16 11/30/16 11/30/16 04:17 04:17 04:32 WBC 12.0 H RBC 2.80 L Hgb 7.8 L Hct 23.6 L MCV MCH MCHC RDW 16.6 H Plt Count Lymph % (Auto) [place] % (Auto) 11.3 H Lymph # [place] # 1.4 H Baso # Seg Neutrophils % Seg Neuts % (Manual) Lymphocytes % (Manual) Monocytes % (Manual) Eosinophils % (Manual) Basophils % (Manual) Nucleated RBC % Seg Neutrophils # 8.2 H Seg Neutrophils # Man Lymphocytes # (Manual) Monocytes # (Manual) Eosinophils # (Manual) Basophils # (Manual) PT INR Fibrinogen dRVVT Confirm Interp Factor V Activity POC ABG pH POC ABG pCO2 POC ABG pO2 ABG pO2 ABG HCO3 ABG Base Excess ABG Hemoglobin Oxyhemoglobin Sodium 169 H* D Potassium 5.1 H Chloride 121.5 H Carbon Dioxide BUN 34 H Creatinine 1.3 H D Glucose 133 H POC Glucose 131 H Lactic Acid Calcium 10.3 H Phosphorus Magnesium Direct Bilirubin AST ALT Alkaline Phosphatase Lactate Dehydrogenase Troponin T C-Reactive Protein Total Protein Albumin Prealbumin Triglycerides Cholesterol LDL Cholesterol Direct HDL Cholesterol PTH Intact Urine pH Urine WBC (Auto) Urine Creatinine Urine Total Protein Fluid Total Protein Vancomycin Trough Rheumatoid Factor Complement C4 Miscellaneous Test Crossmatch 11/30/16 11/30/16 11/30/16 05:45 11:10 17:26 WBC RBC Hgb Hct MCV MCH MCHC RDW Plt Count Lymph % (Auto) [place] % (Auto) Lymph # [place] # Baso # Seg Neutrophils % Seg Neuts % (Manual) Lymphocytes % (Manual) Monocytes % (Manual) Eosinophils % (Manual) Basophils % (Manual) Nucleated RBC % Seg Neutrophils # Seg Neutrophils # Man Lymphocytes # (Manual) Monocytes # (Manual) Eosinophils # (Manual) Basophils # (Manual) PT INR Fibrinogen dRVVT Confirm Interp Factor V Activity POC ABG pH POC ABG pCO2 POC ABG pO2 ABG pO2 ABG HCO3 ABG Base Excess ABG Hemoglobin Oxyhemoglobin Sodium Potassium Chloride Carbon Dioxide BUN 45 H Creatinine 1.6 H Glucose 131 H POC Glucose 146 H 134 H Lactic Acid Calcium Phosphorus Magnesium Direct Bilirubin AST ALT Alkaline Phosphatase Lactate Dehydrogenase Troponin T C-Reactive Protein Total Protein Albumin Prealbumin Triglycerides Cholesterol LDL Cholesterol Direct HDL Cholesterol PTH Intact Urine pH Urine WBC (Auto) Urine Creatinine Urine Total Protein Fluid Total Protein Vancomycin Trough Rheumatoid Factor Complement C4 Miscellaneous Test Crossmatch 10/11/17 10/12/17 10/12/17 23:35 00:06 03:35 WBC RBC Hgb Hct MCV MCH MCHC RDW Plt Count Lymph % (Auto) [place] % (Auto) Lymph # [place] # Baso # Seg Neutrophils % Seg Neuts % (Manual) Lymphocytes % (Manual) Monocytes % (Manual) Eosinophils % (Manual) Basophils % (Manual) Nucleated RBC % Seg Neutrophils # Seg Neutrophils # Man Lymphocytes # (Manual) Monocytes # (Manual) Eosinophils # (Manual) Basophils # (Manual) PT INR Fibrinogen dRVVT Confirm Interp Factor V Activity POC ABG pH POC ABG pCO2 POC ABG pO2 ABG pO2 ABG HCO3 ABG Base Excess ABG Hemoglobin 6.9 L Oxyhemoglobin Sodium Potassium Chloride Carbon Dioxide BUN 58 H Creatinine 1.8 H Glucose 146 H POC Glucose 151 H Lactic Acid Calcium Phosphorus Magnesium Direct Bilirubin AST ALT Alkaline Phosphatase Lactate Dehydrogenase Troponin T C-Reactive Protein Total Protein Albumin Prealbumin Triglycerides Cholesterol LDL Cholesterol Direct HDL Cholesterol PTH Intact Urine pH Urine WBC (Auto) Urine Creatinine Urine Total Protein Fluid Total Protein Vancomycin Trough Rheumatoid Factor Complement C4 Miscellaneous Test Crossmatch 12/01/16 12/01/16 12/01/16 03:35 05:47 11:52 WBC 12.3 H RBC 2.82 L Hgb 7.8 L Hct 23.7 L MCV MCH MCHC RDW 16.7 H Plt Count Lymph % (Auto) [place] % (Auto) 9.8 H Lymph # [place] # 1.2 H Baso # Seg Neutrophils % Seg Neuts % (Manual) Lymphocytes % (Manual) Monocytes % (Manual) Eosinophils % (Manual) Basophils % (Manual) Nucleated RBC % Seg Neutrophils # 8.4 H Seg Neutrophils # Man Lymphocytes # (Manual) Monocytes # (Manual) Eosinophils # (Manual) Basophils # (Manual) PT INR Fibrinogen dRVVT Confirm Interp Factor V Activity POC ABG pH POC ABG pCO2 POC ABG pO2 ABG pO2 ABG HCO3 ABG Base Excess ABG Hemoglobin Oxyhemoglobin Sodium Potassium Chloride Carbon Dioxide BUN Creatinine Glucose POC Glucose 152 H 152 H Lactic Acid Calcium Phosphorus Magnesium Direct Bilirubin AST ALT Alkaline Phosphatase Lactate Dehydrogenase Troponin T C-Reactive Protein Total Protein Albumin Prealbumin Triglycerides Cholesterol LDL Cholesterol Direct HDL Cholesterol PTH Intact Urine pH Urine WBC (Auto) Urine Creatinine Urine Total Protein Fluid Total Protein Vancomycin Trough Rheumatoid Factor Complement C4 Miscellaneous Test Crossmatch 12/01/16 12/01/16 12/02/16 17:40 23:41 05:00 WBC RBC Hgb Hct MCV MCH MCHC RDW Plt Count Lymph % (Auto) [place] % (Auto) Lymph # [place] # Baso # Seg Neutrophils % Seg Neuts % (Manual) Lymphocytes % (Manual) Monocytes % (Manual) Eosinophils % (Manual) Basophils % (Manual) Nucleated RBC % Seg Neutrophils # Seg Neutrophils # Man Lymphocytes # (Manual) Monocytes # (Manual) Eosinophils # (Manual) Basophils # (Manual) PT INR Fibrinogen dRVVT Confirm Interp Factor V Activity POC ABG pH POC ABG pCO2 POC ABG pO2 ABG pO2 ABG HCO3 ABG Base Excess ABG Hemoglobin Oxyhemoglobin Sodium Potassium Chloride Carbon Dioxide BUN 45 H Creatinine Glucose 115 H POC Glucose 140 H 144 H Lactic Acid Calcium Phosphorus Magnesium Direct Bilirubin AST ALT Alkaline Phosphatase Lactate Dehydrogenase Troponin T C-Reactive Protein Total Protein Albumin Prealbumin Triglycerides Cholesterol LDL Cholesterol Direct HDL Cholesterol PTH Intact Urine pH Urine WBC (Auto) Urine Creatinine Urine Total Protein Fluid Total Protein Vancomycin Trough Rheumatoid Factor Complement C4 Miscellaneous Test Crossmatch 12/02/16 12/02/16 12/02/16 05:31 11:20 17:38 WBC RBC Hgb Hct MCV MCH MCHC RDW Plt Count Lymph % (Auto) [place] % (Auto) Lymph # [place] # Baso # Seg Neutrophils % Seg Neuts % (Manual) Lymphocytes % (Manual) Monocytes % (Manual) Eosinophils % (Manual) Basophils % (Manual) Nucleated RBC % Seg Neutrophils # Seg Neutrophils # Man Lymphocytes # (Manual) Monocytes # (Manual) Eosinophils # (Manual) Basophils # (Manual) PT INR Fibrinogen dRVVT Confirm Interp Factor V Activity POC ABG pH POC ABG pCO2 POC ABG pO2 ABG pO2 ABG HCO3 ABG Base Excess ABG Hemoglobin Oxyhemoglobin Sodium Potassium Chloride Carbon Dioxide BUN Creatinine Glucose POC Glucose 136 H 177 H 139 H Lactic Acid Calcium Phosphorus Magnesium Direct Bilirubin AST ALT Alkaline Phosphatase Lactate Dehydrogenase Troponin T C-Reactive Protein Total Protein Albumin Prealbumin Triglycerides Cholesterol LDL Cholesterol Direct HDL Cholesterol PTH Intact Urine pH Urine WBC (Auto) Urine Creatinine Urine Total Protein Fluid Total Protein Vancomycin Trough Rheumatoid Factor Complement C4 Miscellaneous Test Crossmatch 12/02/16 12/03/16 12/03/16 23:43 04:00 04:00 WBC 20.4 H RBC 2.74 L Hgb 7.4 L Hct 23.6 L MCV MCH 27 L MCHC RDW 17.1 H Plt Count Lymph % (Auto) [place] % (Auto) Lymph # [place] # Baso # Seg Neutrophils % Seg Neuts % (Manual) 31.0 L Lymphocytes % (Manual) Monocytes % (Manual) Eosinophils % (Manual) Basophils % (Manual) Nucleated RBC % Seg Neutrophils # Seg Neutrophils # Man Lymphocytes # (Manual) Monocytes # (Manual) Eosinophils # (Manual) Basophils # (Manual) PT INR Fibrinogen dRVVT Confirm Interp Factor V Activity POC ABG pH POC ABG pCO2 POC ABG pO2 ABG pO2 ABG HCO3 ABG Base Excess ABG Hemoglobin Oxyhemoglobin Sodium Potassium Chloride Carbon Dioxide BUN 61 H Creatinine 1.6 H Glucose 119 H POC Glucose 158 H Lactic Acid Calcium Phosphorus Magnesium Direct Bilirubin AST ALT Alkaline Phosphatase Lactate Dehydrogenase Troponin T C-Reactive Protein Total Protein Albumin Prealbumin Triglycerides Cholesterol LDL Cholesterol Direct HDL Cholesterol PTH Intact Urine pH Urine WBC (Auto) Urine Creatinine Urine Total Protein Fluid Total Protein Vancomycin Trough Rheumatoid Factor Complement C4 Miscellaneous Test Crossmatch 12/03/16 12/03/16 12/03/16 05:02 12:11 18:16 WBC RBC Hgb Hct MCV MCH MCHC RDW Plt Count Lymph % (Auto) [place] % (Auto) Lymph # [place] # Baso # Seg Neutrophils % Seg Neuts % (Manual) Lymphocytes % (Manual) Monocytes % (Manual) Eosinophils % (Manual) Basophils % (Manual) Nucleated RBC % Seg Neutrophils # Seg Neutrophils # Man Lymphocytes # (Manual) Monocytes # (Manual) Eosinophils # (Manual) Basophils # (Manual) PT INR Fibrinogen dRVVT Confirm Interp Factor V Activity POC ABG pH POC ABG pCO2 POC ABG pO2 ABG pO2 ABG HCO3 ABG Base Excess ABG Hemoglobin Oxyhemoglobin Sodium Potassium Chloride Carbon Dioxide BUN Creatinine Glucose POC Glucose 146 H 157 H 124 H Lactic Acid Calcium Phosphorus Magnesium Direct Bilirubin AST ALT Alkaline Phosphatase Lactate Dehydrogenase Troponin T C-Reactive Protein Total Protein Albumin Prealbumin Triglycerides Cholesterol LDL Cholesterol Direct HDL Cholesterol PTH Intact Urine pH Urine WBC (Auto) Urine Creatinine Urine Total Protein Fluid Total Protein Vancomycin Trough Rheumatoid Factor Complement C4 Miscellaneous Test Crossmatch 12/03/16 12/04/16 12/04/16 23:41 04:00 04:45 WBC RBC Hgb Hct MCV MCH MCHC RDW Plt Count Lymph % (Auto) [place] % (Auto) Lymph # [place] # Baso # Seg Neutrophils % Seg Neuts % (Manual) Lymphocytes % (Manual) Monocytes % (Manual) Eosinophils % (Manual) Basophils % (Manual) Nucleated RBC % Seg Neutrophils # Seg Neutrophils # Man Lymphocytes # (Manual) Monocytes # (Manual) Eosinophils # (Manual) Basophils # (Manual) PT INR Fibrinogen dRVVT Confirm Interp Factor V Activity POC ABG pH POC ABG pCO2 POC ABG pO2 ABG pO2 ABG HCO3 ABG Base Excess ABG Hemoglobin Oxyhemoglobin Sodium Potassium Chloride Carbon Dioxide BUN 76 H Creatinine 1.6 H Glucose POC Glucose 130 H 136 H Lactic Acid Calcium Phosphorus Magnesium Direct Bilirubin AST ALT Alkaline Phosphatase 155 H Lactate Dehydrogenase Troponin T C-Reactive Protein Total Protein 5.5 L Albumin 1.5 L Prealbumin Triglycerides Cholesterol LDL Cholesterol Direct HDL Cholesterol PTH Intact Urine pH Urine WBC (Auto) Urine Creatinine Urine Total Protein Fluid Total Protein Vancomycin Trough Rheumatoid Factor Complement C4 Miscellaneous Test Crossmatch 12/04/16 12/04/16 12/05/16 12:08 17:23 00:10 WBC RBC Hgb Hct MCV MCH MCHC RDW Plt Count Lymph % (Auto) [place] % (Auto) Lymph # [place] # Baso # Seg Neutrophils % Seg Neuts % (Manual) Lymphocytes % (Manual) Monocytes % (Manual) Eosinophils % (Manual) Basophils % (Manual) Nucleated RBC % Seg Neutrophils # Seg Neutrophils # Man Lymphocytes # (Manual) Monocytes # (Manual) Eosinophils # (Manual) Basophils # (Manual) PT INR Fibrinogen dRVVT Confirm Interp Factor V Activity POC ABG pH POC ABG pCO2 POC ABG pO2 ABG pO2 ABG HCO3 ABG Base Excess ABG Hemoglobin Oxyhemoglobin Sodium Potassium Chloride Carbon Dioxide BUN Creatinine Glucose POC Glucose 114 H 129 H 124 H Lactic Acid Calcium Phosphorus Magnesium Direct Bilirubin AST ALT Alkaline Phosphatase Lactate Dehydrogenase Troponin T C-Reactive Protein Total Protein Albumin Prealbumin Triglycerides Cholesterol LDL Cholesterol Direct HDL Cholesterol PTH Intact Urine pH Urine WBC (Auto) Urine Creatinine Urine Total Protein Fluid Total Protein Vancomycin Trough Rheumatoid Factor Complement C4 Miscellaneous Test Crossmatch 12/05/16 12/05/16 12/05/16 05:00 05:00 05:18 WBC RBC Hgb Hct MCV MCH MCHC RDW Plt Count Lymph % (Auto) [place] % (Auto) Lymph # [place] # Baso # Seg Neutrophils % Seg Neuts % (Manual) Lymphocytes % (Manual) Monocytes % (Manual) Eosinophils % (Manual) Basophils % (Manual) Nucleated RBC % Seg Neutrophils # Seg Neutrophils # Man Lymphocytes # (Manual) Monocytes # (Manual) Eosinophils # (Manual) Basophils # (Manual) PT INR Fibrinogen dRVVT Confirm Interp Factor V Activity POC ABG pH POC ABG pCO2 POC ABG pO2 ABG pO2 ABG HCO3 ABG Base Excess ABG Hemoglobin Oxyhemoglobin Sodium Potassium Chloride Carbon Dioxide 21 L BUN 85 H Creatinine 1.9 H Glucose 131 H POC Glucose 154 H Lactic Acid Calcium Phosphorus Magnesium Direct Bilirubin AST ALT Alkaline Phosphatase Lactate Dehydrogenase Troponin T C-Reactive Protein 19.30 H Total Protein Albumin Prealbumin Triglycerides Cholesterol LDL Cholesterol Direct HDL Cholesterol PTH Intact Urine pH Urine WBC (Auto) Urine Creatinine Urine Total Protein Fluid Total Protein Vancomycin Trough Rheumatoid Factor Complement C4 Miscellaneous Test Crossmatch 12/05/16 12/05/16 12/05/16 11:43 17:46 23:25 WBC RBC Hgb Hct MCV MCH MCHC RDW Plt Count Lymph % (Auto) [place] % (Auto) Lymph # [place] # Baso # Seg Neutrophils % Seg Neuts % (Manual) Lymphocytes % (Manual) Monocytes % (Manual) Eosinophils % (Manual) Basophils % (Manual) Nucleated RBC % Seg Neutrophils # Seg Neutrophils # Man Lymphocytes # (Manual) Monocytes # (Manual) Eosinophils # (Manual) Basophils # (Manual) PT INR Fibrinogen dRVVT Confirm Interp Factor V Activity POC ABG pH POC ABG pCO2 POC ABG pO2 ABG pO2 ABG HCO3 ABG Base Excess ABG Hemoglobin Oxyhemoglobin Sodium Potassium Chloride Carbon Dioxide BUN Creatinine Glucose POC Glucose 117 H 113 H 111 H Lactic Acid Calcium Phosphorus Magnesium Direct Bilirubin AST ALT Alkaline Phosphatase Lactate Dehydrogenase Troponin T C-Reactive Protein Total Protein Albumin Prealbumin Triglycerides Cholesterol LDL Cholesterol Direct HDL Cholesterol PTH Intact Urine pH Urine WBC (Auto) Urine Creatinine Urine Total Protein Fluid Total Protein Vancomycin Trough Rheumatoid Factor Complement C4 Miscellaneous Test Crossmatch 12/05/16 12/06/16 12/06/16 Unknown 04:58 06:00 WBC RBC Hgb Hct MCV MCH MCHC RDW Plt Count Lymph % (Auto) [place] % (Auto) Lymph # [place] # Baso # Seg Neutrophils % Seg Neuts % (Manual) Lymphocytes % (Manual) Monocytes % (Manual) Eosinophils % (Manual) Basophils % (Manual) Nucleated RBC % Seg Neutrophils # Seg Neutrophils # Man Lymphocytes # (Manual) Monocytes # (Manual) Eosinophils # (Manual) Basophils # (Manual) PT INR Fibrinogen dRVVT Confirm Interp Factor V Activity POC ABG pH POC ABG pCO2 POC ABG pO2 ABG pO2 75.2 L ABG HCO3 ABG Base Excess -3.4 L ABG Hemoglobin 7.4 L Oxyhemoglobin 94.5 L Sodium Potassium Chloride Carbon Dioxide 20 L BUN 99 H Creatinine 2.1 H Glucose 126 H POC Glucose 145 H Lactic Acid Calcium Phosphorus 4.80 H Magnesium Direct Bilirubin AST ALT Alkaline Phosphatase Lactate Dehydrogenase Troponin T C-Reactive Protein Total Protein Albumin Prealbumin Triglycerides Cholesterol LDL Cholesterol Direct HDL Cholesterol PTH Intact Urine pH Urine WBC (Auto) Urine Creatinine Urine Total Protein Fluid Total Protein Vancomycin Trough Rheumatoid Factor Complement C4 Miscellaneous Test Crossmatch 12/06/16 12/06/16 12/06/16 06:46 11:54 17:55 WBC RBC Hgb 8.3 L Hct 26.4 L MCV MCH MCHC RDW Plt Count Lymph % (Auto) [place] % (Auto) Lymph # [place] # Baso # Seg Neutrophils % Seg Neuts % (Manual) Lymphocytes % (Manual) Monocytes % (Manual) Eosinophils % (Manual) Basophils % (Manual) Nucleated RBC % Seg Neutrophils # Seg Neutrophils # Man Lymphocytes # (Manual) Monocytes # (Manual) Eosinophils # (Manual) Basophils # (Manual) PT INR Fibrinogen dRVVT Confirm Interp Factor V Activity POC ABG pH POC ABG pCO2 POC ABG pO2 ABG pO2 ABG HCO3 ABG Base Excess ABG Hemoglobin Oxyhemoglobin Sodium Potassium Chloride Carbon Dioxide BUN Creatinine Glucose POC Glucose 126 H 157 H Lactic Acid Calcium Phosphorus Magnesium Direct Bilirubin AST ALT Alkaline Phosphatase Lactate Dehydrogenase Troponin T C-Reactive Protein Total Protein Albumin Prealbumin Triglycerides Cholesterol LDL Cholesterol Direct HDL Cholesterol PTH Intact Urine pH Urine WBC (Auto) Urine Creatinine Urine Total Protein Fluid Total Protein Vancomycin Trough Rheumatoid Factor Complement C4 Miscellaneous Test Crossmatch 12/06/16 12/07/16 12/07/16 23:59 05:34 06:30 WBC RBC Hgb Hct MCV MCH MCHC RDW Plt Count Lymph % (Auto) [place] % (Auto) Lymph # [place] # Baso # Seg Neutrophils % Seg Neuts % (Manual) Lymphocytes % (Manual) Monocytes % (Manual) Eosinophils % (Manual) Basophils % (Manual) Nucleated RBC % Seg Neutrophils # Seg Neutrophils # Man Lymphocytes # (Manual) Monocytes # (Manual) Eosinophils # (Manual) Basophils # (Manual) PT INR Fibrinogen dRVVT Confirm Interp Factor V Activity POC ABG pH POC ABG pCO2 POC ABG pO2 ABG pO2 ABG HCO3 ABG Base Excess ABG Hemoglobin Oxyhemoglobin Sodium Potassium Chloride Carbon Dioxide BUN 67 H Creatinine 1.4 H Glucose 126 H POC Glucose 129 H 129 H Lactic Acid Calcium Phosphorus Magnesium Direct Bilirubin AST ALT Alkaline Phosphatase Lactate Dehydrogenase Troponin T C-Reactive Protein Total Protein Albumin Prealbumin Triglycerides Cholesterol LDL Cholesterol Direct HDL Cholesterol PTH Intact Urine pH Urine WBC (Auto) Urine Creatinine Urine Total Protein Fluid Total Protein Vancomycin Trough Rheumatoid Factor Complement C4 Miscellaneous Test Crossmatch 12/07/16 12/07/16 12/07/16 06:30 08:00 09:45 WBC 18.8 H RBC 2.52 L Hgb 6.9 L 6.8 L Hct 21.2 L 21.1 L MCV MCH 27 L MCHC RDW 18.0 H Plt Count Lymph % (Auto) [place] % (Auto) 9.9 H Lymph # [place] # 1.9 H Baso # Seg Neutrophils % 71.8 H Seg Neuts % (Manual) Lymphocytes % (Manual) Monocytes % (Manual) Eosinophils % (Manual) Basophils % (Manual) Nucleated RBC % Seg Neutrophils # 13.5 H Seg Neutrophils # Man Lymphocytes # (Manual) Monocytes # (Manual) Eosinophils # (Manual) Basophils # (Manual) PT INR Fibrinogen dRVVT Confirm Interp Factor V Activity POC ABG pH POC ABG pCO2 POC ABG pO2 ABG pO2 ABG HCO3 ABG Base Excess ABG Hemoglobin Oxyhemoglobin Sodium Potassium Chloride Carbon Dioxide BUN Creatinine Glucose POC Glucose Lactic Acid Calcium Phosphorus Magnesium Direct Bilirubin AST ALT Alkaline Phosphatase Lactate Dehydrogenase Troponin T C-Reactive Protein Total Protein Albumin Prealbumin Triglycerides Cholesterol LDL Cholesterol Direct HDL Cholesterol PTH Intact Urine pH Urine WBC (Auto) Urine Creatinine Urine Total Protein Fluid Total Protein Vancomycin Trough Rheumatoid Factor Complement C4 Miscellaneous Test Crossmatch See Detail 12/07/16 12/07/16 12/07/16 11:44 18:19 23:59 WBC RBC Hgb Hct MCV MCH MCHC RDW Plt Count Lymph % (Auto) [place] % (Auto) Lymph # [place] # Baso # Seg Neutrophils % Seg Neuts % (Manual) Lymphocytes % (Manual) Monocytes % (Manual) Eosinophils % (Manual) Basophils % (Manual) Nucleated RBC % Seg Neutrophils # Seg Neutrophils # Man Lymphocytes # (Manual) Monocytes # (Manual) Eosinophils # (Manual) Basophils # (Manual) PT INR Fibrinogen dRVVT Confirm Interp Factor V Activity POC ABG pH POC ABG pCO2 POC ABG pO2 ABG pO2 ABG HCO3 ABG Base Excess ABG Hemoglobin Oxyhemoglobin Sodium Potassium Chloride Carbon Dioxide BUN Creatinine Glucose POC Glucose 137 H 138 H 133 H Lactic Acid Calcium Phosphorus Magnesium Direct Bilirubin AST ALT Alkaline Phosphatase Lactate Dehydrogenase Troponin T C-Reactive Protein Total Protein Albumin Prealbumin Triglycerides Cholesterol LDL Cholesterol Direct HDL Cholesterol PTH Intact Urine pH Urine WBC (Auto) Urine Creatinine Urine Total Protein Fluid Total Protein Vancomycin Trough Rheumatoid Factor Complement C4 Miscellaneous Test Crossmatch 12/08/16 12/08/16 12/08/16 05:25 05:30 05:30 WBC 23.8 H RBC 2.88 L Hgb 8.1 L Hct 24.3 L MCV MCH MCHC RDW 16.7 H Plt Count Lymph % (Auto) [place] % (Auto) Lymph # [place] # Baso # Seg Neutrophils % Seg Neuts % (Manual) 76.0 H Lymphocytes % (Manual) 9.0 L Monocytes % (Manual) 9.0 H Eosinophils % (Manual) Basophils % (Manual) Nucleated RBC % Seg Neutrophils # Seg Neutrophils # Man 18.1 H Lymphocytes # (Manual) Monocytes # (Manual) 2.1 H Eosinophils # (Manual) Basophils # (Manual) PT INR Fibrinogen dRVVT Confirm Interp Factor V Activity POC ABG pH POC ABG pCO2 POC ABG pO2 ABG pO2 ABG HCO3 ABG Base Excess ABG Hemoglobin Oxyhemoglobin Sodium Potassium Chloride Carbon Dioxide 21 L BUN 76 H Creatinine 1.6 H Glucose 133 H POC Glucose 177 H Lactic Acid Calcium Phosphorus Magnesium Direct Bilirubin AST ALT Alkaline Phosphatase Lactate Dehydrogenase Troponin T C-Reactive Protein Total Protein Albumin Prealbumin Triglycerides Cholesterol LDL Cholesterol Direct HDL Cholesterol PTH Intact Urine pH Urine WBC (Auto) Urine Creatinine Urine Total Protein Fluid Total Protein Vancomycin Trough Rheumatoid Factor Complement C4 Miscellaneous Test Crossmatch 12/08/16 12/08/16 12/09/16 11:45 18:00 00:00 WBC RBC Hgb Hct MCV MCH MCHC RDW Plt Count Lymph % (Auto) [place] % (Auto) Lymph # [place] # Baso # Seg Neutrophils % Seg Neuts % (Manual) Lymphocytes % (Manual) Monocytes % (Manual) Eosinophils % (Manual) Basophils % (Manual) Nucleated RBC % Seg Neutrophils # Seg Neutrophils # Man Lymphocytes # (Manual) Monocytes # (Manual) Eosinophils # (Manual) Basophils # (Manual) PT INR Fibrinogen dRVVT Confirm Interp Factor V Activity POC ABG pH POC ABG pCO2 POC ABG pO2 ABG pO2 ABG HCO3 ABG Base Excess ABG Hemoglobin Oxyhemoglobin Sodium Potassium Chloride Carbon Dioxide BUN Creatinine Glucose POC Glucose 163 H 123 H 137 H Lactic Acid Calcium Phosphorus Magnesium Direct Bilirubin AST ALT Alkaline Phosphatase Lactate Dehydrogenase Troponin T C-Reactive Protein Total Protein Albumin Prealbumin Triglycerides Cholesterol LDL Cholesterol Direct HDL Cholesterol PTH Intact Urine pH Urine WBC (Auto) Urine Creatinine Urine Total Protein Fluid Total Protein Vancomycin Trough Rheumatoid Factor Complement C4 Miscellaneous Test Crossmatch 12/09/16 12/09/16 12/09/16 05:34 06:00 06:00 WBC 15.5 H RBC 2.87 L Hgb 8.0 L Hct 24.2 L MCV MCH MCHC RDW 17.2 H Plt Count Lymph % (Auto) [place] % (Auto) 11.6 H Lymph # [place] # 1.8 H Baso # Seg Neutrophils % 70.8 H Seg Neuts % (Manual) Lymphocytes % (Manual) Monocytes % (Manual) Eosinophils % (Manual) Basophils % (Manual) Nucleated RBC % Seg Neutrophils # 11.0 H Seg Neutrophils # Man Lymphocytes # (Manual) Monocytes # (Manual) Eosinophils # (Manual) Basophils # (Manual) PT INR Fibrinogen dRVVT Confirm Interp Factor V Activity POC ABG pH POC ABG pCO2 POC ABG pO2 ABG pO2 ABG HCO3 ABG Base Excess ABG Hemoglobin Oxyhemoglobin Sodium Potassium Chloride Carbon Dioxide BUN 51 H Creatinine Glucose 117 H POC Glucose 136 H Lactic Acid Calcium Phosphorus Magnesium Direct Bilirubin AST ALT Alkaline Phosphatase Lactate Dehydrogenase Troponin T C-Reactive Protein Total Protein Albumin Prealbumin Triglycerides Cholesterol LDL Cholesterol Direct HDL Cholesterol PTH Intact Urine pH Urine WBC (Auto) Urine Creatinine Urine Total Protein Fluid Total Protein Vancomycin Trough Rheumatoid Factor Complement C4 Miscellaneous Test Crossmatch 12/09/16 12/09/16 12/09/16 12:29 17:52 23:10 WBC RBC Hgb Hct MCV MCH MCHC RDW Plt Count Lymph % (Auto) [place] % (Auto) Lymph # [place] # Baso # Seg Neutrophils % Seg Neuts % (Manual) Lymphocytes % (Manual) Monocytes % (Manual) Eosinophils % (Manual) Basophils % (Manual) Nucleated RBC % Seg Neutrophils # Seg Neutrophils # Man Lymphocytes # (Manual) Monocytes # (Manual) Eosinophils # (Manual) Basophils # (Manual) PT INR Fibrinogen dRVVT Confirm Interp Factor V Activity POC ABG pH POC ABG pCO2 POC ABG pO2 ABG pO2 ABG HCO3 ABG Base Excess ABG Hemoglobin Oxyhemoglobin Sodium Potassium Chloride Carbon Dioxide BUN Creatinine Glucose POC Glucose 139 H 140 H 129 H Lactic Acid Calcium Phosphorus Magnesium Direct Bilirubin AST ALT Alkaline Phosphatase Lactate Dehydrogenase Troponin T C-Reactive Protein Total Protein Albumin Prealbumin Triglycerides Cholesterol LDL Cholesterol Direct HDL Cholesterol PTH Intact Urine pH Urine WBC (Auto) Urine Creatinine Urine Total Protein Fluid Total Protein Vancomycin Trough Rheumatoid Factor Complement C4 Miscellaneous Test Crossmatch 12/10/16 12/10/16 12/10/16 05:00 05:00 06:54 WBC 15.7 H RBC 2.87 L Hgb 8.2 L Hct 24.4 L MCV MCH MCHC RDW 17.2 H Plt Count Lymph % (Auto) [place] % (Auto) 8.3 H Lymph # [place] # 1.3 H Baso # Seg Neutrophils % 72.8 H Seg Neuts % (Manual) Lymphocytes % (Manual) Monocytes % (Manual) Eosinophils % (Manual) Basophils % (Manual) Nucleated RBC % Seg Neutrophils # 11.4 H Seg Neutrophils # Man Lymphocytes # (Manual) Monocytes # (Manual) Eosinophils # (Manual) Basophils # (Manual) PT INR Fibrinogen dRVVT Confirm Interp Factor V Activity POC ABG pH POC ABG pCO2 POC ABG pO2 ABG pO2 ABG HCO3 ABG Base Excess ABG Hemoglobin Oxyhemoglobin Sodium Potassium Chloride Carbon Dioxide BUN 64 H Creatinine 1.4 H Glucose 134 H POC Glucose 154 H Lactic Acid Calcium Phosphorus Magnesium Direct Bilirubin AST ALT Alkaline Phosphatase Lactate Dehydrogenase Troponin T C-Reactive Protein Total Protein Albumin Prealbumin Triglycerides Cholesterol LDL Cholesterol Direct HDL Cholesterol PTH Intact Urine pH Urine WBC (Auto) Urine Creatinine Urine Total Protein Fluid Total Protein Vancomycin Trough Rheumatoid Factor Complement C4 Miscellaneous Test Crossmatch 12/10/16 12/10/16 12/10/16 11:58 17:29 23:52 WBC RBC Hgb Hct MCV MCH MCHC RDW Plt Count Lymph % (Auto) [place] % (Auto) Lymph # [place] # Baso # Seg Neutrophils % Seg Neuts % (Manual) Lymphocytes % (Manual) Monocytes % (Manual) Eosinophils % (Manual) Basophils % (Manual) Nucleated RBC % Seg Neutrophils # Seg Neutrophils # Man Lymphocytes # (Manual) Monocytes # (Manual) Eosinophils # (Manual) Basophils # (Manual) PT INR Fibrinogen dRVVT Confirm Interp Factor V Activity POC ABG pH POC ABG pCO2 POC ABG pO2 ABG pO2 ABG HCO3 ABG Base Excess ABG Hemoglobin Oxyhemoglobin Sodium Potassium Chloride Carbon Dioxide BUN Creatinine Glucose POC Glucose 144 H 163 H 125 H Lactic Acid Calcium Phosphorus Magnesium Direct Bilirubin AST ALT Alkaline Phosphatase Lactate Dehydrogenase Troponin T C-Reactive Protein Total Protein Albumin Prealbumin Triglycerides Cholesterol LDL Cholesterol Direct HDL Cholesterol PTH Intact Urine pH Urine WBC (Auto) Urine Creatinine Urine Total Protein Fluid Total Protein Vancomycin Trough Rheumatoid Factor Complement C4 Miscellaneous Test Crossmatch 12/11/16 12/11/16 12/11/16 05:38 06:30 06:30 WBC 14.4 H RBC 2.76 L Hgb 7.7 L Hct 23.4 L MCV MCH MCHC RDW 17.2 H Plt Count Lymph % (Auto) [place] % (Auto) 8.8 H Lymph # [place] # 1.3 H Baso # Seg Neutrophils % 72.5 H Seg Neuts % (Manual) Lymphocytes % (Manual) Monocytes % (Manual) Eosinophils % (Manual) Basophils % (Manual) Nucleated RBC % Seg Neutrophils # 10.5 H Seg Neutrophils # Man Lymphocytes # (Manual) Monocytes # (Manual) Eosinophils # (Manual) Basophils # (Manual) PT INR Fibrinogen dRVVT Confirm Interp Factor V Activity POC ABG pH POC ABG pCO2 POC ABG pO2 ABG pO2 ABG HCO3 ABG Base Excess ABG Hemoglobin Oxyhemoglobin Sodium Potassium Chloride Carbon Dioxide BUN 43 H Creatinine Glucose 124 H POC Glucose 141 H Lactic Acid Calcium 8.3 L Phosphorus Magnesium 1.60 L Direct Bilirubin AST ALT Alkaline Phosphatase Lactate Dehydrogenase Troponin T C-Reactive Protein Total Protein Albumin Prealbumin Triglycerides Cholesterol LDL Cholesterol Direct HDL Cholesterol PTH Intact Urine pH Urine WBC (Auto) Urine Creatinine Urine Total Protein Fluid Total Protein Vancomycin Trough Rheumatoid Factor Complement C4 Miscellaneous Test Crossmatch 12/11/16 12/11/16 12/11/16 11:15 17:59 23:48 WBC RBC Hgb Hct MCV MCH MCHC RDW Plt Count Lymph % (Auto) [place] % (Auto) Lymph # [place] # Baso # Seg Neutrophils % Seg Neuts % (Manual) Lymphocytes % (Manual) Monocytes % (Manual) Eosinophils % (Manual) Basophils % (Manual) Nucleated RBC % Seg Neutrophils # Seg Neutrophils # Man Lymphocytes # (Manual) Monocytes # (Manual) Eosinophils # (Manual) Basophils # (Manual) PT INR Fibrinogen dRVVT Confirm Interp Factor V Activity POC ABG pH POC ABG pCO2 POC ABG pO2 ABG pO2 ABG HCO3 ABG Base Excess ABG Hemoglobin Oxyhemoglobin Sodium Potassium Chloride Carbon Dioxide BUN Creatinine Glucose POC Glucose 188 H 106 H 119 H Lactic Acid Calcium Phosphorus Magnesium Direct Bilirubin AST ALT Alkaline Phosphatase Lactate Dehydrogenase Troponin T C-Reactive Protein Total Protein Albumin Prealbumin Triglycerides Cholesterol LDL Cholesterol Direct HDL Cholesterol PTH Intact Urine pH Urine WBC (Auto) Urine Creatinine Urine Total Protein Fluid Total Protein Vancomycin Trough Rheumatoid Factor Complement C4 Miscellaneous Test Crossmatch 12/12/16 12/12/16 12/12/16 05:00 06:01 12:20 WBC 16.7 H RBC 2.87 L Hgb 8.0 L Hct 24.2 L MCV MCH MCHC RDW 17.6 H Plt Count Lymph % (Auto) [place] % (Auto) Lymph # [place] # 1.2 H Baso # Seg Neutrophils % 75.3 H Seg Neuts % (Manual) Lymphocytes % (Manual) Monocytes % (Manual) Eosinophils % (Manual) Basophils % (Manual) Nucleated RBC % Seg Neutrophils # 12.6 H Seg Neutrophils # Man Lymphocytes # (Manual) Monocytes # (Manual) Eosinophils # (Manual) Basophils # (Manual) PT INR Fibrinogen dRVVT Confirm Interp Factor V Activity POC ABG pH POC ABG pCO2 POC ABG pO2 ABG pO2 ABG HCO3 ABG Base Excess ABG Hemoglobin Oxyhemoglobin Sodium Potassium Chloride Carbon Dioxide BUN Creatinine Glucose POC Glucose 134 H 149 H Lactic Acid Calcium Phosphorus Magnesium Direct Bilirubin AST ALT Alkaline Phosphatase Lactate Dehydrogenase Troponin T C-Reactive Protein Total Protein Albumin Prealbumin Triglycerides Cholesterol LDL Cholesterol Direct HDL Cholesterol PTH Intact Urine pH Urine WBC (Auto) Urine Creatinine Urine Total Protein Fluid Total Protein Vancomycin Trough Rheumatoid Factor Complement C4 Miscellaneous Test Crossmatch 12/12/16 12/12/16 12/12/16 17:38 23:01 Unknown WBC RBC Hgb Hct MCV MCH MCHC RDW Plt Count Lymph % (Auto) [place] % (Auto) Lymph # [place] # Baso # Seg Neutrophils % Seg Neuts % (Manual) Lymphocytes % (Manual) Monocytes % (Manual) Eosinophils % (Manual) Basophils % (Manual) Nucleated RBC % Seg Neutrophils # Seg Neutrophils # Man Lymphocytes # (Manual) Monocytes # (Manual) Eosinophils # (Manual) Basophils # (Manual) PT INR Fibrinogen dRVVT Confirm Interp Factor V Activity POC ABG pH POC ABG pCO2 POC ABG pO2 ABG pO2 ABG HCO3 ABG Base Excess ABG Hemoglobin Oxyhemoglobin Sodium Potassium Chloride Carbon Dioxide BUN 60 H Creatinine 1.3 H Glucose 126 H POC Glucose 127 H 144 H Lactic Acid Calcium Phosphorus Magnesium Direct Bilirubin AST ALT Alkaline Phosphatase Lactate Dehydrogenase Troponin T C-Reactive Protein Total Protein Albumin Prealbumin Triglycerides Cholesterol LDL Cholesterol Direct HDL Cholesterol PTH Intact Urine pH Urine WBC (Auto) Urine Creatinine Urine Total Protein Fluid Total Protein Vancomycin Trough Rheumatoid Factor Complement C4 Miscellaneous Test Crossmatch 12/13/16 12/13/16 12/13/16 04:00 04:00 05:19 WBC 18.7 H RBC 2.89 L Hgb 8.3 L Hct 24.6 L MCV MCH MCHC RDW 17.5 H Plt Count Lymph % (Auto) [place] % (Auto) Lymph # [place] # 1.3 H Baso # Seg Neutrophils % 71.5 H Seg Neuts % (Manual) Lymphocytes % (Manual) Monocytes % (Manual) Eosinophils % (Manual) Basophils % (Manual) Nucleated RBC % Seg Neutrophils # 13.4 H Seg Neutrophils # Man Lymphocytes # (Manual) Monocytes # (Manual) Eosinophils # (Manual) Basophils # (Manual) PT INR Fibrinogen dRVVT Confirm Interp Factor V Activity POC ABG pH POC ABG pCO2 POC ABG pO2 ABG pO2 ABG HCO3 ABG Base Excess ABG Hemoglobin Oxyhemoglobin Sodium Potassium Chloride Carbon Dioxide BUN 73 H Creatinine 1.5 H Glucose 141 H POC Glucose 171 H Lactic Acid Calcium Phosphorus Magnesium Direct Bilirubin AST ALT Alkaline Phosphatase Lactate Dehydrogenase Troponin T C-Reactive Protein Total Protein Albumin Prealbumin Triglycerides Cholesterol LDL Cholesterol Direct HDL Cholesterol PTH Intact Urine pH Urine WBC (Auto) Urine Creatinine Urine Total Protein Fluid Total Protein Vancomycin Trough Rheumatoid Factor Complement C4 Miscellaneous Test Crossmatch 12/13/16 12/13/16 12/14/16 12:28 16:48 00:01 WBC RBC Hgb Hct MCV MCH MCHC RDW Plt Count Lymph % (Auto) [place] % (Auto) Lymph # [place] # Baso # Seg Neutrophils % Seg Neuts % (Manual) Lymphocytes % (Manual) Monocytes % (Manual) Eosinophils % (Manual) Basophils % (Manual) Nucleated RBC % Seg Neutrophils # Seg Neutrophils # Man Lymphocytes # (Manual) Monocytes # (Manual) Eosinophils # (Manual) Basophils # (Manual) PT INR Fibrinogen dRVVT Confirm Interp Factor V Activity POC ABG pH POC ABG pCO2 POC ABG pO2 ABG pO2 ABG HCO3 ABG Base Excess ABG Hemoglobin Oxyhemoglobin Sodium Potassium Chloride Carbon Dioxide BUN Creatinine Glucose POC Glucose 206 H 173 H 139 H Lactic Acid Calcium Phosphorus Magnesium Direct Bilirubin AST ALT Alkaline Phosphatase Lactate Dehydrogenase Troponin T C-Reactive Protein Total Protein Albumin Prealbumin Triglycerides Cholesterol LDL Cholesterol Direct HDL Cholesterol PTH Intact Urine pH Urine WBC (Auto) Urine Creatinine Urine Total Protein Fluid Total Protein Vancomycin Trough Rheumatoid Factor Complement C4 Miscellaneous Test Crossmatch 12/14/16 12/14/16 12/14/16 05:16 06:10 11:17 WBC RBC Hgb Hct MCV MCH MCHC RDW Plt Count Lymph % (Auto) [place] % (Auto) Lymph # [place] # Baso # Seg Neutrophils % Seg Neuts % (Manual) Lymphocytes % (Manual) Monocytes % (Manual) Eosinophils % (Manual) Basophils % (Manual) Nucleated RBC % Seg Neutrophils # Seg Neutrophils # Man Lymphocytes # (Manual) Monocytes # (Manual) Eosinophils # (Manual) Basophils # (Manual) PT INR Fibrinogen dRVVT Confirm Interp Factor V Activity POC ABG pH POC ABG pCO2 POC ABG pO2 ABG pO2 ABG HCO3 ABG Base Excess ABG Hemoglobin Oxyhemoglobin Sodium Potassium Chloride Carbon Dioxide BUN 57 H Creatinine 1.4 H Glucose 135 H POC Glucose 158 H 137 H Lactic Acid Calcium Phosphorus Magnesium Direct Bilirubin AST ALT Alkaline Phosphatase Lactate Dehydrogenase Troponin T C-Reactive Protein Total Protein Albumin Prealbumin Triglycerides Cholesterol LDL Cholesterol Direct HDL Cholesterol PTH Intact Urine pH Urine WBC (Auto) Urine Creatinine Urine Total Protein Fluid Total Protein Vancomycin Trough Rheumatoid Factor Complement C4 Miscellaneous Test Crossmatch 12/14/16 12/14/16 12/15/16 17:52 23:27 04:00 WBC RBC Hgb Hct MCV MCH MCHC RDW Plt Count Lymph % (Auto) [place] % (Auto) Lymph # [place] # Baso # Seg Neutrophils % Seg Neuts % (Manual) Lymphocytes % (Manual) Monocytes % (Manual) Eosinophils % (Manual) Basophils % (Manual) Nucleated RBC % Seg Neutrophils # Seg Neutrophils # Man Lymphocytes # (Manual) Monocytes # (Manual) Eosinophils # (Manual) Basophils # (Manual) PT INR Fibrinogen dRVVT Confirm Interp Factor V Activity POC ABG pH POC ABG pCO2 POC ABG pO2 ABG pO2 ABG HCO3 ABG Base Excess ABG Hemoglobin Oxyhemoglobin Sodium Potassium Chloride 97.9 L Carbon Dioxide BUN 75 H Creatinine 1.6 H Glucose 122 H POC Glucose 149 H 163 H Lactic Acid Calcium Phosphorus 5.20 H Magnesium Direct Bilirubin AST ALT Alkaline Phosphatase Lactate Dehydrogenase Troponin T C-Reactive Protein Total Protein Albumin Prealbumin Triglycerides Cholesterol LDL Cholesterol Direct HDL Cholesterol PTH Intact Urine pH Urine WBC (Auto) Urine Creatinine Urine Total Protein Fluid Total Protein Vancomycin Trough Rheumatoid Factor Complement C4 Miscellaneous Test Crossmatch 12/15/16 12/15/16 12/15/16 05:50 11:24 17:01 WBC RBC Hgb Hct MCV MCH MCHC RDW Plt Count Lymph % (Auto) [place] % (Auto) Lymph # [place] # Baso # Seg Neutrophils % Seg Neuts % (Manual) Lymphocytes % (Manual) Monocytes % (Manual) Eosinophils % (Manual) Basophils % (Manual) Nucleated RBC % Seg Neutrophils # Seg Neutrophils # Man Lymphocytes # (Manual) Monocytes # (Manual) Eosinophils # (Manual) Basophils # (Manual) PT INR Fibrinogen dRVVT Confirm Interp Factor V Activity POC ABG pH POC ABG pCO2 POC ABG pO2 ABG pO2 ABG HCO3 ABG Base Excess ABG Hemoglobin Oxyhemoglobin Sodium Potassium Chloride Carbon Dioxide BUN Creatinine Glucose POC Glucose 150 H 146 H 167 H Lactic Acid Calcium Phosphorus Magnesium Direct Bilirubin AST ALT Alkaline Phosphatase Lactate Dehydrogenase Troponin T C-Reactive Protein Total Protein Albumin Prealbumin Triglycerides Cholesterol LDL Cholesterol Direct HDL Cholesterol PTH Intact Urine pH Urine WBC (Auto) Urine Creatinine Urine Total Protein Fluid Total Protein Vancomycin Trough Rheumatoid Factor Complement C4 Miscellaneous Test Crossmatch 12/15/16 12/16/16 12/16/16 23:34 05:25 11:24 WBC RBC Hgb Hct MCV MCH MCHC RDW Plt Count Lymph % (Auto) [place] % (Auto) Lymph # [place] # Baso # Seg Neutrophils % Seg Neuts % (Manual) Lymphocytes % (Manual) Monocytes % (Manual) Eosinophils % (Manual) Basophils % (Manual) Nucleated RBC % Seg Neutrophils # Seg Neutrophils # Man Lymphocytes # (Manual) Monocytes # (Manual) Eosinophils # (Manual) Basophils # (Manual) PT INR Fibrinogen dRVVT Confirm Interp Factor V Activity POC ABG pH POC ABG pCO2 POC ABG pO2 ABG pO2 ABG HCO3 ABG Base Excess ABG Hemoglobin Oxyhemoglobin Sodium Potassium Chloride Carbon Dioxide BUN Creatinine Glucose POC Glucose 127 H 139 H 165 H Lactic Acid Calcium Phosphorus Magnesium Direct Bilirubin AST ALT Alkaline Phosphatase Lactate Dehydrogenase Troponin T C-Reactive Protein Total Protein Albumin Prealbumin Triglycerides Cholesterol LDL Cholesterol Direct HDL Cholesterol PTH Intact Urine pH Urine WBC (Auto) Urine Creatinine Urine Total Protein Fluid Total Protein Vancomycin Trough Rheumatoid Factor Complement C4 Miscellaneous Test Crossmatch 12/16/16 12/16/16 12/16/16 15:30 16:25 17:31 WBC 17.8 H RBC 2.38 L Hgb 6.4 L Hct 20.3 L MCV MCH 27 L MCHC RDW 17.4 H Plt Count Lymph % (Auto) [place] % (Auto) Lymph # [place] # Baso # Seg Neutrophils % Seg Neuts % (Manual) Lymphocytes % (Manual) Monocytes % (Manual) 10.0 H Eosinophils % (Manual) Basophils % (Manual) Nucleated RBC % Seg Neutrophils # Seg Neutrophils # Man 8.5 H Lymphocytes # (Manual) Monocytes # (Manual) 1.8 H Eosinophils # (Manual) Basophils # (Manual) PT INR Fibrinogen dRVVT Confirm Interp Factor V Activity POC ABG pH POC ABG pCO2 POC ABG pO2 ABG pO2 ABG HCO3 ABG Base Excess ABG Hemoglobin Oxyhemoglobin Sodium Potassium Chloride Carbon Dioxide BUN Creatinine Glucose POC Glucose 176 H Lactic Acid Calcium Phosphorus Magnesium Direct Bilirubin AST ALT Alkaline Phosphatase Lactate Dehydrogenase Troponin T C-Reactive Protein Total Protein Albumin Prealbumin Triglycerides Cholesterol LDL Cholesterol Direct HDL Cholesterol PTH Intact Urine pH Urine WBC (Auto) Urine Creatinine Urine Total Protein Fluid Total Protein Vancomycin Trough Rheumatoid Factor Complement C4 Miscellaneous Test Crossmatch See Detail 12/17/16 12/17/16 12/17/16 00:14 04:00 05:00 WBC 20.0 H RBC 2.99 L Hgb 8.5 L Hct 25.7 L MCV MCH MCHC RDW 17.2 H Plt Count Lymph % (Auto) [place] % (Auto) Lymph # [place] # Baso # Seg Neutrophils % Seg Neuts % (Manual) Lymphocytes % (Manual) Monocytes % (Manual) Eosinophils % (Manual) Basophils % (Manual) Nucleated RBC % Seg Neutrophils # Seg Neutrophils # Man Lymphocytes # (Manual) Monocytes # (Manual) Eosinophils # (Manual) Basophils # (Manual) PT INR Fibrinogen dRVVT Confirm Interp Factor V Activity POC ABG pH POC ABG pCO2 POC ABG pO2 ABG pO2 ABG HCO3 ABG Base Excess ABG Hemoglobin Oxyhemoglobin Sodium Potassium Chloride 97.7 L Carbon Dioxide BUN 73 H Creatinine 1.7 H Glucose 136 H POC Glucose 148 H Lactic Acid Calcium Phosphorus 2.20 L Magnesium 2.70 H Direct Bilirubin AST ALT Alkaline Phosphatase Lactate Dehydrogenase Troponin T C-Reactive Protein Total Protein Albumin Prealbumin Triglycerides Cholesterol LDL Cholesterol Direct HDL Cholesterol PTH Intact Urine pH Urine WBC (Auto) Urine Creatinine Urine Total Protein Fluid Total Protein Vancomycin Trough Rheumatoid Factor Complement C4 Miscellaneous Test Crossmatch 12/17/16 12/17/16 12/17/16 05:39 12:50 16:32 WBC RBC Hgb Hct MCV MCH MCHC RDW Plt Count Lymph % (Auto) [place] % (Auto) Lymph # [place] # Baso # Seg Neutrophils % Seg Neuts % (Manual) Lymphocytes % (Manual) Monocytes % (Manual) Eosinophils % (Manual) Basophils % (Manual) Nucleated RBC % Seg Neutrophils # Seg Neutrophils # Man Lymphocytes # (Manual) Monocytes # (Manual) Eosinophils # (Manual) Basophils # (Manual) PT INR Fibrinogen dRVVT Confirm Interp Factor V Activity POC ABG pH POC ABG pCO2 POC ABG pO2 ABG pO2 ABG HCO3 ABG Base Excess ABG Hemoglobin Oxyhemoglobin Sodium Potassium Chloride Carbon Dioxide BUN Creatinine Glucose POC Glucose 162 H 146 H 169 H Lactic Acid Calcium Phosphorus Magnesium Direct Bilirubin AST ALT Alkaline Phosphatase Lactate Dehydrogenase Troponin T C-Reactive Protein Total Protein Albumin Prealbumin Triglycerides Cholesterol LDL Cholesterol Direct HDL Cholesterol PTH Intact Urine pH Urine WBC (Auto) Urine Creatinine Urine Total Protein Fluid Total Protein Vancomycin Trough Rheumatoid Factor Complement C4 Miscellaneous Test Crossmatch 12/17/16 12/18/16 12/18/16 23:57 05:00 05:32 WBC RBC Hgb Hct MCV MCH MCHC RDW Plt Count Lymph % (Auto) [place] % (Auto) Lymph # [place] # Baso # Seg Neutrophils % Seg Neuts % (Manual) Lymphocytes % (Manual) Monocytes % (Manual) Eosinophils % (Manual) Basophils % (Manual) Nucleated RBC % Seg Neutrophils # Seg Neutrophils # Man Lymphocytes # (Manual) Monocytes # (Manual) Eosinophils # (Manual) Basophils # (Manual) PT INR Fibrinogen dRVVT Confirm Interp Factor V Activity POC ABG pH POC ABG pCO2 POC ABG pO2 ABG pO2 ABG HCO3 ABG Base Excess ABG Hemoglobin Oxyhemoglobin Sodium Potassium Chloride 97.0 L Carbon Dioxide BUN 63 H Creatinine 1.4 H Glucose 174 H POC Glucose 145 H 201 H Lactic Acid Calcium Phosphorus 1.70 L D Magnesium Direct Bilirubin AST ALT Alkaline Phosphatase 257 H Lactate Dehydrogenase Troponin T C-Reactive Protein Total Protein 5.9 L Albumin 1.8 L Prealbumin Triglycerides Cholesterol LDL Cholesterol Direct HDL Cholesterol PTH Intact Urine pH Urine WBC (Auto) Urine Creatinine Urine Total Protein Fluid Total Protein Vancomycin Trough Rheumatoid Factor Complement C4 Miscellaneous Test Crossmatch 12/18/16 12/18/16 12/18/16 11:43 16:52 23:52 WBC RBC Hgb Hct MCV MCH MCHC RDW Plt Count Lymph % (Auto) [place] % (Auto) Lymph # [place] # Baso # Seg Neutrophils % Seg Neuts % (Manual) Lymphocytes % (Manual) Monocytes % (Manual) Eosinophils % (Manual) Basophils % (Manual) Nucleated RBC % Seg Neutrophils # Seg Neutrophils # Man Lymphocytes # (Manual) Monocytes # (Manual) Eosinophils # (Manual) Basophils # (Manual) PT INR Fibrinogen dRVVT Confirm Interp Factor V Activity POC ABG pH POC ABG pCO2 POC ABG pO2 ABG pO2 ABG HCO3 ABG Base Excess ABG Hemoglobin Oxyhemoglobin Sodium Potassium Chloride Carbon Dioxide BUN Creatinine Glucose POC Glucose 177 H 110 H 162 H Lactic Acid Calcium Phosphorus Magnesium Direct Bilirubin AST ALT Alkaline Phosphatase Lactate Dehydrogenase Troponin T C-Reactive Protein Total Protein Albumin Prealbumin Triglycerides Cholesterol LDL Cholesterol Direct HDL Cholesterol PTH Intact Urine pH Urine WBC (Auto) Urine Creatinine Urine Total Protein Fluid Total Protein Vancomycin Trough Rheumatoid Factor Complement C4 Miscellaneous Test Crossmatch 12/19/16 12/19/16 12/19/16 05:02 05:24 09:30 WBC 20.1 H RBC 2.73 L Hgb 7.6 L Hct 23.6 L MCV MCH MCHC RDW 17.6 H Plt Count Lymph % (Auto) [place] % (Auto) Lymph # [place] # Baso # Seg Neutrophils % Seg Neuts % (Manual) Lymphocytes % (Manual) 13.0 L Monocytes % (Manual) Eosinophils % (Manual) Basophils % (Manual) Nucleated RBC % 1.0 H Seg Neutrophils # Seg Neutrophils # Man 12.9 H Lymphocytes # (Manual) Monocytes # (Manual) 1.4 H Eosinophils # (Manual) Basophils # (Manual) 0.2 H PT INR Fibrinogen dRVVT Confirm Interp Factor V Activity POC ABG pH POC ABG pCO2 POC ABG pO2 ABG pO2 ABG HCO3 ABG Base Excess ABG Hemoglobin Oxyhemoglobin Sodium Potassium Chloride 97.8 L Carbon Dioxide BUN 84 H Creatinine 1.6 H Glucose 133 H POC Glucose 134 H Lactic Acid Calcium Phosphorus Magnesium Direct Bilirubin AST ALT Alkaline Phosphatase Lactate Dehydrogenase Troponin T C-Reactive Protein Total Protein Albumin Prealbumin Triglycerides Cholesterol LDL Cholesterol Direct HDL Cholesterol PTH Intact Urine pH Urine WBC (Auto) Urine Creatinine Urine Total Protein Fluid Total Protein Vancomycin Trough Rheumatoid Factor Complement C4 Miscellaneous Test Crossmatch 12/19/16 12/19/16 12/19/16 09:36 11:12 18:29 WBC RBC Hgb Hct MCV MCH MCHC RDW Plt Count Lymph % (Auto) [place] % (Auto) Lymph # [place] # Baso # Seg Neutrophils % Seg Neuts % (Manual) Lymphocytes % (Manual) Monocytes % (Manual) Eosinophils % (Manual) Basophils % (Manual) Nucleated RBC % Seg Neutrophils # Seg Neutrophils # Man Lymphocytes # (Manual) Monocytes # (Manual) Eosinophils # (Manual) Basophils # (Manual) PT INR Fibrinogen dRVVT Confirm Interp Factor V Activity POC ABG pH 7.503 H POC ABG pCO2 30.1 L POC ABG pO2 ABG pO2 ABG HCO3 ABG Base Excess ABG Hemoglobin Oxyhemoglobin Sodium Potassium Chloride Carbon Dioxide BUN Creatinine Glucose POC Glucose 138 H 156 H Lactic Acid Calcium Phosphorus Magnesium Direct Bilirubin AST ALT Alkaline Phosphatase Lactate Dehydrogenase Troponin T C-Reactive Protein Total Protein Albumin Prealbumin Triglycerides Cholesterol LDL Cholesterol Direct HDL Cholesterol PTH Intact Urine pH Urine WBC (Auto) Urine Creatinine Urine Total Protein Fluid Total Protein Vancomycin Trough Rheumatoid Factor Complement C4 Miscellaneous Test Crossmatch 12/20/16 12/20/16 12/20/16 00:03 06:17 07:07 WBC RBC Hgb Hct MCV MCH MCHC RDW Plt Count Lymph % (Auto) [place] % (Auto) Lymph # [place] # Baso # Seg Neutrophils % Seg Neuts % (Manual) Lymphocytes % (Manual) Monocytes % (Manual) Eosinophils % (Manual) Basophils % (Manual) Nucleated RBC % Seg Neutrophils # Seg Neutrophils # Man Lymphocytes # (Manual) Monocytes # (Manual) Eosinophils # (Manual) Basophils # (Manual) PT INR Fibrinogen dRVVT Confirm Interp Factor V Activity POC ABG pH POC ABG pCO2 POC ABG pO2 ABG pO2 ABG HCO3 ABG Base Excess ABG Hemoglobin Oxyhemoglobin Sodium Potassium Chloride 97.1 L Carbon Dioxide 20 L BUN 97 H Creatinine 1.8 H Glucose 153 H POC Glucose 152 H 175 H Lactic Acid Calcium Phosphorus Magnesium Direct Bilirubin AST ALT Alkaline Phosphatase Lactate Dehydrogenase Troponin T C-Reactive Protein Total Protein Albumin Prealbumin Triglycerides Cholesterol LDL Cholesterol Direct HDL Cholesterol PTH Intact Urine pH Urine WBC (Auto) Urine Creatinine Urine Total Protein Fluid Total Protein Vancomycin Trough Rheumatoid Factor Complement C4 Miscellaneous Test Crossmatch 12/20/16 12/20/16 12/20/16 12:00 17:42 23:53 WBC RBC Hgb Hct MCV MCH MCHC RDW Plt Count Lymph % (Auto) [place] % (Auto) Lymph # [place] # Baso # Seg Neutrophils % Seg Neuts % (Manual) Lymphocytes % (Manual) Monocytes % (Manual) Eosinophils % (Manual) Basophils % (Manual) Nucleated RBC % Seg Neutrophils # Seg Neutrophils # Man Lymphocytes # (Manual) Monocytes # (Manual) Eosinophils # (Manual) Basophils # (Manual) PT INR Fibrinogen dRVVT Confirm Interp Factor V Activity POC ABG pH POC ABG pCO2 POC ABG pO2 ABG pO2 ABG HCO3 ABG Base Excess ABG Hemoglobin Oxyhemoglobin Sodium Potassium Chloride Carbon Dioxide BUN Creatinine Glucose POC Glucose 141 H 156 H 132 H Lactic Acid Calcium Phosphorus Magnesium Direct Bilirubin AST ALT Alkaline Phosphatase Lactate Dehydrogenase Troponin T C-Reactive Protein Total Protein Albumin Prealbumin Triglycerides Cholesterol LDL Cholesterol Direct HDL Cholesterol PTH Intact Urine pH Urine WBC (Auto) Urine Creatinine Urine Total Protein Fluid Total Protein Vancomycin Trough Rheumatoid Factor Complement C4 Miscellaneous Test Crossmatch 12/21/16 12/21/16 12/21/16 05:49 08:50 12:19 WBC RBC Hgb Hct MCV MCH MCHC RDW Plt Count Lymph % (Auto) [place] % (Auto) Lymph # [place] # Baso # Seg Neutrophils % Seg Neuts % (Manual) Lymphocytes % (Manual) Monocytes % (Manual) Eosinophils % (Manual) Basophils % (Manual) Nucleated RBC % Seg Neutrophils # Seg Neutrophils # Man Lymphocytes # (Manual) Monocytes # (Manual) Eosinophils # (Manual) Basophils # (Manual) PT INR Fibrinogen dRVVT Confirm Interp Factor V Activity POC ABG pH POC ABG pCO2 POC ABG pO2 ABG pO2 ABG HCO3 ABG Base Excess ABG Hemoglobin Oxyhemoglobin Sodium Potassium 5.2 H D Chloride Carbon Dioxide BUN 63 H Creatinine Glucose 122 H POC Glucose 132 H 136 H Lactic Acid Calcium 8.3 L Phosphorus Magnesium Direct Bilirubin AST ALT Alkaline Phosphatase Lactate Dehydrogenase Troponin T C-Reactive Protein Total Protein Albumin Prealbumin Triglycerides Cholesterol LDL Cholesterol Direct HDL Cholesterol PTH Intact Urine pH Urine WBC (Auto) Urine Creatinine Urine Total Protein Fluid Total Protein Vancomycin Trough Rheumatoid Factor Complement C4 Miscellaneous Test Crossmatch 12/21/16 12/21/16 12/22/16 17:22 23:58 05:49 WBC RBC Hgb Hct MCV MCH MCHC RDW Plt Count Lymph % (Auto) [place] % (Auto) Lymph # [place] # Baso # Seg Neutrophils % Seg Neuts % (Manual) Lymphocytes % (Manual) Monocytes % (Manual) Eosinophils % (Manual) Basophils % (Manual) Nucleated RBC % Seg Neutrophils # Seg Neutrophils # Man Lymphocytes # (Manual) Monocytes # (Manual) Eosinophils # (Manual) Basophils # (Manual) PT INR Fibrinogen dRVVT Confirm Interp Factor V Activity POC ABG pH POC ABG pCO2 POC ABG pO2 ABG pO2 ABG HCO3 ABG Base Excess ABG Hemoglobin Oxyhemoglobin Sodium Potassium Chloride Carbon Dioxide BUN Creatinine Glucose POC Glucose 135 H 149 H 140 H Lactic Acid Calcium Phosphorus Magnesium Direct Bilirubin AST ALT Alkaline Phosphatase Lactate Dehydrogenase Troponin T C-Reactive Protein Total Protein Albumin Prealbumin Triglycerides Cholesterol LDL Cholesterol Direct HDL Cholesterol PTH Intact Urine pH Urine WBC (Auto) Urine Creatinine Urine Total Protein Fluid Total Protein Vancomycin Trough Rheumatoid Factor Complement C4 Miscellaneous Test Crossmatch 12/22/16 12/22/16 12/22/16 06:10 11:17 17:31 WBC RBC Hgb Hct MCV MCH MCHC RDW Plt Count Lymph % (Auto) [place] % (Auto) Lymph # [place] # Baso # Seg Neutrophils % Seg Neuts % (Manual) Lymphocytes % (Manual) Monocytes % (Manual) Eosinophils % (Manual) Basophils % (Manual) Nucleated RBC % Seg Neutrophils # Seg Neutrophils # Man Lymphocytes # (Manual) Monocytes # (Manual) Eosinophils # (Manual) Basophils # (Manual) PT INR Fibrinogen dRVVT Confirm Interp Factor V Activity POC ABG pH POC ABG pCO2 POC ABG pO2 ABG pO2 ABG HCO3 ABG Base Excess ABG Hemoglobin Oxyhemoglobin Sodium Potassium Chloride Carbon Dioxide BUN 76 H Creatinine 1.5 H Glucose 241 H POC Glucose 193 H 148 H Lactic Acid Calcium Phosphorus Magnesium Direct Bilirubin AST ALT Alkaline Phosphatase Lactate Dehydrogenase Troponin T C-Reactive Protein Total Protein Albumin Prealbumin Triglycerides Cholesterol LDL Cholesterol Direct HDL Cholesterol PTH Intact Urine pH Urine WBC (Auto) Urine Creatinine Urine Total Protein Fluid Total Protein Vancomycin Trough Rheumatoid Factor Complement C4 Miscellaneous Test Crossmatch 12/22/16 12/23/16 12/23/16 23:58 05:00 05:26 WBC RBC Hgb Hct MCV MCH MCHC RDW Plt Count Lymph % (Auto) [place] % (Auto) Lymph # [place] # Baso # Seg Neutrophils % Seg Neuts % (Manual) Lymphocytes % (Manual) Monocytes % (Manual) Eosinophils % (Manual) Basophils % (Manual) Nucleated RBC % Seg Neutrophils # Seg Neutrophils # Man Lymphocytes # (Manual) Monocytes # (Manual) Eosinophils # (Manual) Basophils # (Manual) PT INR Fibrinogen dRVVT Confirm Interp Factor V Activity POC ABG pH POC ABG pCO2 POC ABG pO2 ABG pO2 ABG HCO3 ABG Base Excess ABG Hemoglobin Oxyhemoglobin Sodium Potassium Chloride Carbon Dioxide BUN 49 H Creatinine Glucose 143 H POC Glucose 165 H 154 H Lactic Acid Calcium 8.2 L Phosphorus Magnesium 1.60 L Direct Bilirubin AST ALT Alkaline Phosphatase Lactate Dehydrogenase Troponin T C-Reactive Protein Total Protein Albumin Prealbumin Triglycerides Cholesterol LDL Cholesterol Direct HDL Cholesterol PTH Intact Urine pH Urine WBC (Auto) Urine Creatinine Urine Total Protein Fluid Total Protein Vancomycin Trough Rheumatoid Factor Complement C4 Miscellaneous Test Crossmatch 12/23/16 12/23/16 12/24/16 12:35 17:01 00:01 WBC RBC Hgb Hct MCV MCH MCHC RDW Plt Count Lymph % (Auto) [place] % (Auto) Lymph # [place] # Baso # Seg Neutrophils % Seg Neuts % (Manual) Lymphocytes % (Manual) Monocytes % (Manual) Eosinophils % (Manual) Basophils % (Manual) Nucleated RBC % Seg Neutrophils # Seg Neutrophils # Man Lymphocytes # (Manual) Monocytes # (Manual) Eosinophils # (Manual) Basophils # (Manual) PT INR Fibrinogen dRVVT Confirm Interp Factor V Activity POC ABG pH POC ABG pCO2 POC ABG pO2 ABG pO2 ABG HCO3 ABG Base Excess ABG Hemoglobin Oxyhemoglobin Sodium Potassium Chloride Carbon Dioxide BUN Creatinine Glucose POC Glucose 164 H 149 H 135 H Lactic Acid Calcium Phosphorus Magnesium Direct Bilirubin AST ALT Alkaline Phosphatase Lactate Dehydrogenase Troponin T C-Reactive Protein Total Protein Albumin Prealbumin Triglycerides Cholesterol LDL Cholesterol Direct HDL Cholesterol PTH Intact Urine pH Urine WBC (Auto) Urine Creatinine Urine Total Protein Fluid Total Protein Vancomycin Trough Rheumatoid Factor Complement C4 Miscellaneous Test Crossmatch 12/24/16 12/24/1617 05:41 07:01 11:38 WBC RBC Hgb Hct MCV MCH MCHC RDW Plt Count Lymph % (Auto) [place] % (Auto) Lymph # [place] # Baso # Seg Neutrophils % Seg Neuts % (Manual) Lymphocytes % (Manual) Monocytes % (Manual) Eosinophils % (Manual) Basophils % (Manual) Nucleated RBC % Seg Neutrophils # Seg Neutrophils # Man Lymphocytes # (Manual) Monocytes # (Manual) Eosinophils # (Manual) Basophils # (Manual) PT INR Fibrinogen dRVVT Confirm Interp Factor V Activity POC ABG pH POC ABG pCO2 POC ABG pO2 ABG pO2 ABG HCO3 ABG Base Excess ABG Hemoglobin Oxyhemoglobin Sodium Potassium Chloride Carbon Dioxide BUN 72 H Creatinine 1.3 H Glucose 130 H POC Glucose 132 H 156 H Lactic Acid Calcium 8.2 L Phosphorus Magnesium Direct Bilirubin AST ALT Alkaline Phosphatase Lactate Dehydrogenase Troponin T C-Reactive Protein Total Protein Albumin Prealbumin Triglycerides Cholesterol LDL Cholesterol Direct HDL Cholesterol PTH Intact Urine pH Urine WBC (Auto) Urine Creatinine Urine Total Protein Fluid Total Protein Vancomycin Trough Rheumatoid Factor Complement C4 Miscellaneous Test Crossmatch 12/24/16 12/25/16 12/25/16 17:53 00:23 05:45 WBC RBC Hgb Hct MCV MCH MCHC RDW Plt Count Lymph % (Auto) [place] % (Auto) Lymph # [place] # Baso # Seg Neutrophils % Seg Neuts % (Manual) Lymphocytes % (Manual) Monocytes % (Manual) Eosinophils % (Manual) Basophils % (Manual) Nucleated RBC % Seg Neutrophils # Seg Neutrophils # Man Lymphocytes # (Manual) Monocytes # (Manual) Eosinophils # (Manual) Basophils # (Manual) PT INR Fibrinogen dRVVT Confirm Interp Factor V Activity POC ABG pH POC ABG pCO2 POC ABG pO2 ABG pO2 ABG HCO3 ABG Base Excess ABG Hemoglobin Oxyhemoglobin Sodium 146 H Potassium Chloride Carbon Dioxide BUN 51 H Creatinine Glucose 109 H POC Glucose 169 H 117 H Lactic Acid Calcium Phosphorus Magnesium Direct Bilirubin AST ALT Alkaline Phosphatase Lactate Dehydrogenase Troponin T C-Reactive Protein Total Protein Albumin Prealbumin Triglycerides Cholesterol LDL Cholesterol Direct HDL Cholesterol PTH Intact Urine pH Urine WBC (Auto) Urine Creatinine Urine Total Protein Fluid Total Protein Vancomycin Trough Rheumatoid Factor Complement C4 Miscellaneous Test Crossmatch 12/25/16 12/25/16 12/25/16 06:43 11:29 17:14 WBC RBC Hgb Hct MCV MCH MCHC RDW Plt Count Lymph % (Auto) [place] % (Auto) Lymph # [place] # Baso # Seg Neutrophils % Seg Neuts % (Manual) Lymphocytes % (Manual) Monocytes % (Manual) Eosinophils % (Manual) Basophils % (Manual) Nucleated RBC % Seg Neutrophils # Seg Neutrophils # Man Lymphocytes # (Manual) Monocytes # (Manual) Eosinophils # (Manual) Basophils # (Manual) PT INR Fibrinogen dRVVT Confirm Interp Factor V Activity POC ABG pH POC ABG pCO2 POC ABG pO2 ABG pO2 ABG HCO3 ABG Base Excess ABG Hemoglobin Oxyhemoglobin Sodium Potassium Chloride Carbon Dioxide BUN Creatinine Glucose POC Glucose 117 H 128 H 120 H Lactic Acid Calcium Phosphorus Magnesium Direct Bilirubin AST ALT Alkaline Phosphatase Lactate Dehydrogenase Troponin T C-Reactive Protein Total Protein Albumin Prealbumin Triglycerides Cholesterol LDL Cholesterol Direct HDL Cholesterol PTH Intact Urine pH Urine WBC (Auto) Urine Creatinine Urine Total Protein Fluid Total Protein Vancomycin Trough Rheumatoid Factor Complement C4 Miscellaneous Test Crossmatch 12/25/16 12/26/16 12/26/16 23:54 05:40 05:50 WBC 16.2 H RBC 2.32 L Hgb 6.2 L Hct 20.1 L MCV MCH 27 L MCHC RDW 18.6 H Plt Count Lymph % (Auto) [place] % (Auto) Lymph # [place] # Baso # Seg Neutrophils % Seg Neuts % (Manual) Lymphocytes % (Manual) Monocytes % (Manual) Eosinophils % (Manual) Basophils % (Manual) Nucleated RBC % Seg Neutrophils # Seg Neutrophils # Man Lymphocytes # (Manual) Monocytes # (Manual) Eosinophils # (Manual) Basophils # (Manual) PT INR Fibrinogen dRVVT Confirm Interp Factor V Activity POC ABG pH POC ABG pCO2 POC ABG pO2 ABG pO2 ABG HCO3 ABG Base Excess ABG Hemoglobin Oxyhemoglobin Sodium Potassium Chloride Carbon Dioxide BUN Creatinine Glucose POC Glucose 126 H 132 H Lactic Acid Calcium Phosphorus Magnesium Direct Bilirubin AST ALT Alkaline Phosphatase Lactate Dehydrogenase Troponin T C-Reactive Protein Total Protein Albumin Prealbumin Triglycerides Cholesterol LDL Cholesterol Direct HDL Cholesterol PTH Intact Urine pH Urine WBC (Auto) Urine Creatinine Urine Total Protein Fluid Total Protein Vancomycin Trough Rheumatoid Factor Complement C4 Miscellaneous Test Crossmatch 12/26/16 12/26/16 12/26/16 05:50 12:17 12:33 WBC RBC Hgb Hct MCV MCH MCHC RDW Plt Count Lymph % (Auto) [place] % (Auto) Lymph # [place] # Baso # Seg Neutrophils % Seg Neuts % (Manual) Lymphocytes % (Manual) Monocytes % (Manual) Eosinophils % (Manual) Basophils % (Manual) Nucleated RBC % Seg Neutrophils # Seg Neutrophils # Man Lymphocytes # (Manual) Monocytes # (Manual) Eosinophils # (Manual) Basophils # (Manual) PT INR Fibrinogen dRVVT Confirm Interp Factor V Activity POC ABG pH POC ABG pCO2 POC ABG pO2 ABG pO2 ABG HCO3 ABG Base Excess ABG Hemoglobin Oxyhemoglobin Sodium Potassium Chloride Carbon Dioxide BUN 73 H Creatinine 1.3 H Glucose 113 H POC Glucose 117 H Lactic Acid Calcium Phosphorus Magnesium Direct Bilirubin AST ALT Alkaline Phosphatase Lactate Dehydrogenase Troponin T C-Reactive Protein Total Protein Albumin Prealbumin Triglycerides Cholesterol LDL Cholesterol Direct HDL Cholesterol PTH Intact Urine pH Urine WBC (Auto) Urine Creatinine Urine Total Protein Fluid Total Protein Vancomycin Trough Rheumatoid Factor Complement C4 Miscellaneous Test Crossmatch See Detail 12/26/16 12/26/16 12/27/16 20:00 23:21 05:00 WBC RBC Hgb 8.4 L Hct 26.3 L D MCV MCH MCHC RDW Plt Count Lymph % (Auto) [place] % (Auto) Lymph # [place] # Baso # Seg Neutrophils % Seg Neuts % (Manual) Lymphocytes % (Manual) Monocytes % (Manual) Eosinophils % (Manual) Basophils % (Manual) Nucleated RBC % Seg Neutrophils # Seg Neutrophils # Man Lymphocytes # (Manual) Monocytes # (Manual) Eosinophils # (Manual) Basophils # (Manual) PT INR Fibrinogen dRVVT Confirm Interp Factor V Activity POC ABG pH POC ABG pCO2 POC ABG pO2 ABG pO2 ABG HCO3 ABG Base Excess ABG Hemoglobin Oxyhemoglobin Sodium Potassium Chloride Carbon Dioxide BUN 85 H Creatinine 1.6 H Glucose 118 H POC Glucose 124 H Lactic Acid Calcium Phosphorus 4.80 H Magnesium Direct Bilirubin AST ALT Alkaline Phosphatase Lactate Dehydrogenase Troponin T C-Reactive Protein Total Protein Albumin Prealbumin Triglycerides Cholesterol LDL Cholesterol Direct HDL Cholesterol PTH Intact Urine pH Urine WBC (Auto) Urine Creatinine Urine Total Protein Fluid Total Protein Vancomycin Trough Rheumatoid Factor Complement C4 Miscellaneous Test Crossmatch 12/27/16 12/27/16 12/27/16 05:00 05:35 12:24 WBC RBC Hgb 7.6 L Hct 22.8 L MCV MCH MCHC RDW Plt Count Lymph % (Auto) [place] % (Auto) Lymph # [place] # Baso # Seg Neutrophils % Seg Neuts % (Manual) Lymphocytes % (Manual) Monocytes % (Manual) Eosinophils % (Manual) Basophils % (Manual) Nucleated RBC % Seg Neutrophils # Seg Neutrophils # Man Lymphocytes # (Manual) Monocytes # (Manual) Eosinophils # (Manual) Basophils # (Manual) PT INR Fibrinogen dRVVT Confirm Interp Factor V Activity POC ABG pH POC ABG pCO2 POC ABG pO2 ABG pO2 ABG HCO3 ABG Base Excess ABG Hemoglobin Oxyhemoglobin Sodium Potassium Chloride Carbon Dioxide BUN Creatinine Glucose POC Glucose 115 H 131 H Lactic Acid Calcium Phosphorus Magnesium Direct Bilirubin AST ALT Alkaline Phosphatase Lactate Dehydrogenase Troponin T C-Reactive Protein Total Protein Albumin Prealbumin Triglycerides Cholesterol LDL Cholesterol Direct HDL Cholesterol PTH Intact Urine pH Urine WBC (Auto) Urine Creatinine Urine Total Protein Fluid Total Protein Vancomycin Trough Rheumatoid Factor Complement C4 Miscellaneous Test Crossmatch 12/27/16 12/28/16 12/28/16 17:16 00:18 04:00 WBC RBC Hgb Hct MCV MCH MCHC RDW Plt Count Lymph % (Auto) [place] % (Auto) Lymph # [place] # Baso # Seg Neutrophils % Seg Neuts % (Manual) Lymphocytes % (Manual) Monocytes % (Manual) Eosinophils % (Manual) Basophils % (Manual) Nucleated RBC % Seg Neutrophils # Seg Neutrophils # Man Lymphocytes # (Manual) Monocytes # (Manual) Eosinophils # (Manual) Basophils # (Manual) PT INR Fibrinogen dRVVT Confirm Interp Factor V Activity POC ABG pH POC ABG pCO2 POC ABG pO2 ABG pO2 ABG HCO3 ABG Base Excess ABG Hemoglobin Oxyhemoglobin Sodium Potassium 3.5 L Chloride Carbon Dioxide BUN 57 H Creatinine Glucose 118 H POC Glucose 136 H 120 H Lactic Acid Calcium 8.3 L Phosphorus Magnesium Direct Bilirubin AST ALT Alkaline Phosphatase Lactate Dehydrogenase Troponin T C-Reactive Protein Total Protein Albumin Prealbumin Triglycerides Cholesterol LDL Cholesterol Direct HDL Cholesterol PTH Intact Urine pH Urine WBC (Auto) Urine Creatinine Urine Total Protein Fluid Total Protein Vancomycin Trough Rheumatoid Factor Complement C4 Miscellaneous Test Crossmatch 12/28/16 12/28/16 12/28/16 04:00 05:11 08:30 WBC 17.0 H RBC 2.58 L Hgb 7.1 L Hct 22.0 L MCV MCH MCHC RDW 17.6 H Plt Count Lymph % (Auto) 12.2 L [place] % (Auto) Lymph # [place] # 1.1 H Baso # Seg Neutrophils % 80.5 H Seg Neuts % (Manual) Lymphocytes % (Manual) Monocytes % (Manual) Eosinophils % (Manual) Basophils % (Manual) Nucleated RBC % Seg Neutrophils # 13.7 H Seg Neutrophils # Man Lymphocytes # (Manual) Monocytes # (Manual) Eosinophils # (Manual) Basophils # (Manual) PT 16.1 H INR 1.23 H Fibrinogen dRVVT Confirm Interp Factor V Activity POC ABG pH POC ABG pCO2 POC ABG pO2 ABG pO2 ABG HCO3 ABG Base Excess ABG Hemoglobin Oxyhemoglobin Sodium Potassium Chloride Carbon Dioxide BUN Creatinine Glucose POC Glucose 122 H Lactic Acid Calcium Phosphorus Magnesium Direct Bilirubin AST ALT Alkaline Phosphatase Lactate Dehydrogenase Troponin T C-Reactive Protein Total Protein Albumin Prealbumin Triglycerides Cholesterol LDL Cholesterol Direct HDL Cholesterol PTH Intact Urine pH Urine WBC (Auto) Urine Creatinine Urine Total Protein Fluid Total Protein Vancomycin Trough Rheumatoid Factor Complement C4 Miscellaneous Test Crossmatch 12/28/16 12/28/16 12/28/16 12:27 16:32 23:46 WBC RBC Hgb Hct MCV MCH MCHC RDW Plt Count Lymph % (Auto) [place] % (Auto) Lymph # [place] # Baso # Seg Neutrophils % Seg Neuts % (Manual) Lymphocytes % (Manual) Monocytes % (Manual) Eosinophils % (Manual) Basophils % (Manual) Nucleated RBC % Seg Neutrophils # Seg Neutrophils # Man Lymphocytes # (Manual) Monocytes # (Manual) Eosinophils # (Manual) Basophils # (Manual) PT INR Fibrinogen dRVVT Confirm Interp Factor V Activity POC ABG pH POC ABG pCO2 POC ABG pO2 ABG pO2 ABG HCO3 ABG Base Excess ABG Hemoglobin Oxyhemoglobin Sodium Potassium Chloride Carbon Dioxide BUN Creatinine Glucose POC Glucose 127 H 117 H 108 H Lactic Acid Calcium Phosphorus Magnesium Direct Bilirubin AST ALT Alkaline Phosphatase Lactate Dehydrogenase Troponin T C-Reactive Protein Total Protein Albumin Prealbumin Triglycerides Cholesterol LDL Cholesterol Direct HDL Cholesterol PTH Intact Urine pH Urine WBC (Auto) Urine Creatinine Urine Total Protein Fluid Total Protein Vancomycin Trough Rheumatoid Factor Complement C4 Miscellaneous Test Crossmatch 12/29/16 12/29/16 12/29/16 05:15 05:15 05:32 WBC RBC Hgb Hct MCV MCH MCHC RDW Plt Count Lymph % (Auto) [place] % (Auto) Lymph # [place] # Baso # Seg Neutrophils % Seg Neuts % (Manual) Lymphocytes % (Manual) Monocytes % (Manual) Eosinophils % (Manual) Basophils % (Manual) Nucleated RBC % Seg Neutrophils # Seg Neutrophils # Man Lymphocytes # (Manual) Monocytes # (Manual) Eosinophils # (Manual) Basophils # (Manual) PT INR Fibrinogen dRVVT Confirm Interp Factor V Activity POC ABG pH POC ABG pCO2 POC ABG pO2 ABG pO2 ABG HCO3 ABG Base Excess ABG Hemoglobin Oxyhemoglobin Sodium Potassium Chloride Carbon Dioxide BUN 74 H Creatinine 1.6 H Glucose 111 H POC Glucose 123 H Lactic Acid Calcium Phosphorus Magnesium Direct Bilirubin AST ALT Alkaline Phosphatase Lactate Dehydrogenase Troponin T C-Reactive Protein Total Protein Albumin Prealbumin 0.110 L Triglycerides Cholesterol LDL Cholesterol Direct HDL Cholesterol PTH Intact Urine pH Urine WBC (Auto) Urine Creatinine Urine Total Protein Fluid Total Protein Vancomycin Trough Rheumatoid Factor Complement C4 Miscellaneous Test Crossmatch 12/29/16 12/29/16 12/29/16 11:43 13:45 14:00 WBC 13.8 H RBC 2.26 L Hgb 6.3 L Hct 20.4 L MCV MCH MCHC RDW 18.3 H Plt Count Lymph % (Auto) [place] % (Auto) Lymph # [place] # 0.9 H Baso # Seg Neutrophils % 78.6 H Seg Neuts % (Manual) Lymphocytes % (Manual) Monocytes % (Manual) Eosinophils % (Manual) Basophils % (Manual) Nucleated RBC % Seg Neutrophils # 10.8 H Seg Neutrophils # Man Lymphocytes # (Manual) Monocytes # (Manual) Eosinophils # (Manual) Basophils # (Manual) PT INR Fibrinogen dRVVT Confirm Interp Factor V Activity POC ABG pH POC ABG pCO2 POC ABG pO2 ABG pO2 ABG HCO3 ABG Base Excess ABG Hemoglobin Oxyhemoglobin Sodium Potassium Chloride Carbon Dioxide BUN Creatinine Glucose POC Glucose 133 H Lactic Acid Calcium Phosphorus Magnesium Direct Bilirubin AST ALT Alkaline Phosphatase Lactate Dehydrogenase Troponin T C-Reactive Protein Total Protein Albumin Prealbumin Triglycerides Cholesterol LDL Cholesterol Direct HDL Cholesterol PTH Intact Urine pH Urine WBC (Auto) Urine Creatinine Urine Total Protein Fluid Total Protein Vancomycin Trough Rheumatoid Factor Complement C4 Miscellaneous Test Crossmatch See Detail 12/29/16 12/29/16 12/29/16 17:03 23:15 23:22 WBC RBC Hgb 7.3 L Hct 22.3 L MCV MCH MCHC RDW Plt Count Lymph % (Auto) [place] % (Auto) Lymph # [place] # Baso # Seg Neutrophils % Seg Neuts % (Manual) Lymphocytes % (Manual) Monocytes % (Manual) Eosinophils % (Manual) Basophils % (Manual) Nucleated RBC % Seg Neutrophils # Seg Neutrophils # Man Lymphocytes # (Manual) Monocytes # (Manual) Eosinophils # (Manual) Basophils # (Manual) PT INR Fibrinogen dRVVT Confirm Interp Factor V Activity POC ABG pH POC ABG pCO2 POC ABG pO2 ABG pO2 ABG HCO3 ABG Base Excess ABG Hemoglobin Oxyhemoglobin Sodium Potassium Chloride Carbon Dioxide BUN Creatinine Glucose POC Glucose 139 H 120 H Lactic Acid Calcium Phosphorus Magnesium Direct Bilirubin AST ALT Alkaline Phosphatase Lactate Dehydrogenase Troponin T C-Reactive Protein Total Protein Albumin Prealbumin Triglycerides Cholesterol LDL Cholesterol Direct HDL Cholesterol PTH Intact Urine pH Urine WBC (Auto) Urine Creatinine Urine Total Protein Fluid Total Protein Vancomycin Trough Rheumatoid Factor Complement C4 Miscellaneous Test Crossmatch 12/30/16 12/30/16 12/30/16 04:20 04:20 05:43 WBC 15.6 H RBC 2.81 L Hgb 8.0 L Hct 24.0 L MCV MCH MCHC RDW 16.9 H Plt Count Lymph % (Auto) [place] % (Auto) Lymph # [place] # 1.0 H Baso # Seg Neutrophils % 76.2 H Seg Neuts % (Manual) Lymphocytes % (Manual) Monocytes % (Manual) Eosinophils % (Manual) Basophils % (Manual) Nucleated RBC % Seg Neutrophils # 11.9 H Seg Neutrophils # Man Lymphocytes # (Manual) Monocytes # (Manual) Eosinophils # (Manual) Basophils # (Manual) PT INR Fibrinogen dRVVT Confirm Interp Factor V Activity POC ABG pH POC ABG pCO2 POC ABG pO2 ABG pO2 ABG HCO3 ABG Base Excess ABG Hemoglobin Oxyhemoglobin Sodium Potassium Chloride Carbon Dioxide BUN 87 H Creatinine 1.8 H Glucose 119 H POC Glucose 115 H Lactic Acid Calcium Phosphorus Magnesium Direct Bilirubin AST ALT Alkaline Phosphatase Lactate Dehydrogenase Troponin T C-Reactive Protein Total Protein Albumin Prealbumin Triglycerides Cholesterol LDL Cholesterol Direct HDL Cholesterol PTH Intact Urine pH Urine WBC (Auto) Urine Creatinine Urine Total Protein Fluid Total Protein Vancomycin Trough Rheumatoid Factor Complement C4 Miscellaneous Test Crossmatch 12/30/16 12/30/16 12/31/16 17:27 23:21 04:00 WBC RBC Hgb Hct MCV MCH MCHC RDW Plt Count Lymph % (Auto) [place] % (Auto) Lymph # [place] # Baso # Seg Neutrophils % Seg Neuts % (Manual) Lymphocytes % (Manual) Monocytes % (Manual) Eosinophils % (Manual) Basophils % (Manual) Nucleated RBC % Seg Neutrophils # Seg Neutrophils # Man Lymphocytes # (Manual) Monocytes # (Manual) Eosinophils # (Manual) Basophils # (Manual) PT INR Fibrinogen dRVVT Confirm Interp Factor V Activity POC ABG pH POC ABG pCO2 POC ABG pO2 ABG pO2 ABG HCO3 ABG Base Excess ABG Hemoglobin Oxyhemoglobin Sodium Potassium Chloride Carbon Dioxide BUN 59 H Creatinine Glucose 298 H POC Glucose 144 H 125 H Lactic Acid Calcium Phosphorus Magnesium Direct Bilirubin AST ALT Alkaline Phosphatase Lactate Dehydrogenase Troponin T C-Reactive Protein Total Protein Albumin Prealbumin Triglycerides Cholesterol LDL Cholesterol Direct HDL Cholesterol PTH Intact Urine pH Urine WBC (Auto) Urine Creatinine Urine Total Protein Fluid Total Protein Vancomycin Trough Rheumatoid Factor Complement C4 Miscellaneous Test Crossmatch 12/31/16 12/31/16 12/31/16 05:11 12:18 18:17 WBC RBC Hgb Hct MCV MCH MCHC RDW Plt Count Lymph % (Auto) [place] % (Auto) Lymph # [place] # Baso # Seg Neutrophils % Seg Neuts % (Manual) Lymphocytes % (Manual) Monocytes % (Manual) Eosinophils % (Manual) Basophils % (Manual) Nucleated RBC % Seg Neutrophils # Seg Neutrophils # Man Lymphocytes # (Manual) Monocytes # (Manual) Eosinophils # (Manual) Basophils # (Manual) PT INR Fibrinogen dRVVT Confirm Interp Factor V Activity POC ABG pH POC ABG pCO2 POC ABG pO2 ABG pO2 ABG HCO3 ABG Base Excess ABG Hemoglobin Oxyhemoglobin Sodium Potassium Chloride Carbon Dioxide BUN Creatinine Glucose POC Glucose 167 H 125 H 133 H Lactic Acid Calcium Phosphorus Magnesium Direct Bilirubin AST ALT Alkaline Phosphatase Lactate Dehydrogenase Troponin T C-Reactive Protein Total Protein Albumin Prealbumin Triglycerides Cholesterol LDL Cholesterol Direct HDL Cholesterol PTH Intact Urine pH Urine WBC (Auto) Urine Creatinine Urine Total Protein Fluid Total Protein Vancomycin Trough Rheumatoid Factor Complement C4 Miscellaneous Test Crossmatch 12/31/16 01/01/17 01/01/17 23:55 05:00 05:12 WBC RBC Hgb Hct MCV MCH MCHC RDW Plt Count Lymph % (Auto) [place] % (Auto) Lymph # [place] # Baso # Seg Neutrophils % Seg Neuts % (Manual) Lymphocytes % (Manual) Monocytes % (Manual) Eosinophils % (Manual) Basophils % (Manual) Nucleated RBC % Seg Neutrophils # Seg Neutrophils # Man Lymphocytes # (Manual) Monocytes # (Manual) Eosinophils # (Manual) Basophils # (Manual) PT INR Fibrinogen dRVVT Confirm Interp Factor V Activity POC ABG pH POC ABG pCO2 POC ABG pO2 ABG pO2 ABG HCO3 ABG Base Excess ABG Hemoglobin Oxyhemoglobin Sodium Potassium Chloride Carbon Dioxide BUN 76 H Creatinine 1.5 H Glucose 109 H POC Glucose 129 H 129 H Lactic Acid Calcium Phosphorus Magnesium Direct Bilirubin AST ALT Alkaline Phosphatase 536 H Lactate Dehydrogenase Troponin T C-Reactive Protein Total Protein Albumin 1.5 L Prealbumin Triglycerides Cholesterol LDL Cholesterol Direct HDL Cholesterol PTH Intact Urine pH Urine WBC (Auto) Urine Creatinine Urine Total Protein Fluid Total Protein Vancomycin Trough Rheumatoid Factor Complement C4 Miscellaneous Test Crossmatch 01/01/17 01/01/17 01/01/17 12:25 17:01 23:32 WBC RBC Hgb Hct MCV MCH MCHC RDW Plt Count Lymph % (Auto) [place] % (Auto) Lymph # [place] # Baso # Seg Neutrophils % Seg Neuts % (Manual) Lymphocytes % (Manual) Monocytes % (Manual) Eosinophils % (Manual) Basophils % (Manual) Nucleated RBC % Seg Neutrophils # Seg Neutrophils # Man Lymphocytes # (Manual) Monocytes # (Manual) Eosinophils # (Manual) Basophils # (Manual) PT INR Fibrinogen dRVVT Confirm Interp Factor V Activity POC ABG pH POC ABG pCO2 POC ABG pO2 ABG pO2 ABG HCO3 ABG Base Excess ABG Hemoglobin Oxyhemoglobin Sodium Potassium Chloride Carbon Dioxide BUN Creatinine Glucose POC Glucose 140 H 142 H 112 H Lactic Acid Calcium Phosphorus Magnesium Direct Bilirubin AST ALT Alkaline Phosphatase Lactate Dehydrogenase Troponin T C-Reactive Protein Total Protein Albumin Prealbumin Triglycerides Cholesterol LDL Cholesterol Direct HDL Cholesterol PTH Intact Urine pH Urine WBC (Auto) Urine Creatinine Urine Total Protein Fluid Total Protein Vancomycin Trough Rheumatoid Factor Complement C4 Miscellaneous Test Crossmatch 01/02/17 01/02/17 01/02/17 04:56 06:00 11:37 WBC RBC Hgb Hct MCV MCH MCHC RDW Plt Count Lymph % (Auto) [place] % (Auto) Lymph # [place] # Baso # Seg Neutrophils % Seg Neuts % (Manual) Lymphocytes % (Manual) Monocytes % (Manual) Eosinophils % (Manual) Basophils % (Manual) Nucleated RBC % Seg Neutrophils # Seg Neutrophils # Man Lymphocytes # (Manual) Monocytes # (Manual) Eosinophils # (Manual) Basophils # (Manual) PT INR Fibrinogen dRVVT Confirm Interp Factor V Activity POC ABG pH POC ABG pCO2 POC ABG pO2 ABG pO2 ABG HCO3 ABG Base Excess ABG Hemoglobin Oxyhemoglobin Sodium Potassium Chloride Carbon Dioxide BUN 88 H Creatinine 1.7 H Glucose 113 H POC Glucose 136 H 200 H Lactic Acid Calcium Phosphorus Magnesium Direct Bilirubin AST ALT Alkaline Phosphatase Lactate Dehydrogenase Troponin T C-Reactive Protein Total Protein Albumin Prealbumin Triglycerides Cholesterol LDL Cholesterol Direct HDL Cholesterol PTH Intact Urine pH Urine WBC (Auto) Urine Creatinine Urine Total Protein Fluid Total Protein Vancomycin Trough Rheumatoid Factor Complement C4 Miscellaneous Test Crossmatch 01/02/17 01/02/17 01/03/17 17:42 22:52 04:54 WBC RBC Hgb Hct MCV MCH MCHC RDW Plt Count Lymph % (Auto) [place] % (Auto) Lymph # [place] # Baso # Seg Neutrophils % Seg Neuts % (Manual) Lymphocytes % (Manual) Monocytes % (Manual) Eosinophils % (Manual) Basophils % (Manual) Nucleated RBC % Seg Neutrophils # Seg Neutrophils # Man Lymphocytes # (Manual) Monocytes # (Manual) Eosinophils # (Manual) Basophils # (Manual) PT INR Fibrinogen dRVVT Confirm Interp Factor V Activity POC ABG pH POC ABG pCO2 POC ABG pO2 ABG pO2 ABG HCO3 ABG Base Excess ABG Hemoglobin Oxyhemoglobin Sodium Potassium Chloride Carbon Dioxide BUN Creatinine Glucose POC Glucose 112 H 133 H 111 H Lactic Acid Calcium Phosphorus Magnesium Direct Bilirubin AST ALT Alkaline Phosphatase Lactate Dehydrogenase Troponin T C-Reactive Protein Total Protein Albumin Prealbumin Triglycerides Cholesterol LDL Cholesterol Direct HDL Cholesterol PTH Intact Urine pH Urine WBC (Auto) Urine Creatinine Urine Total Protein Fluid Total Protein Vancomycin Trough Rheumatoid Factor Complement C4 Miscellaneous Test Crossmatch 01/03/17 01/03/17 01/03/17 05:00 05:00 14:02 WBC 11.2 H RBC 2.56 L Hgb 7.2 L Hct 22.3 L MCV MCH MCHC RDW 17.3 H Plt Count Lymph % (Auto) [place] % (Auto) 10.0 H Lymph # [place] # 1.1 H Baso # Seg Neutrophils % 70.5 H Seg Neuts % (Manual) Lymphocytes % (Manual) Monocytes % (Manual) Eosinophils % (Manual) Basophils % (Manual) Nucleated RBC % Seg Neutrophils # 7.9 H Seg Neutrophils # Man Lymphocytes # (Manual) Monocytes # (Manual) Eosinophils # (Manual) Basophils # (Manual) PT INR Fibrinogen dRVVT Confirm Interp Factor V Activity POC ABG pH POC ABG pCO2 POC ABG pO2 ABG pO2 ABG HCO3 ABG Base Excess ABG Hemoglobin Oxyhemoglobin Sodium Potassium Chloride Carbon Dioxide BUN 60 H Creatinine 1.3 H Glucose 110 H POC Glucose 119 H Lactic Acid Calcium Phosphorus Magnesium Direct Bilirubin AST ALT Alkaline Phosphatase Lactate Dehydrogenase Troponin T C-Reactive Protein Total Protein Albumin Prealbumin Triglycerides Cholesterol LDL Cholesterol Direct HDL Cholesterol PTH Intact Urine pH Urine WBC (Auto) Urine Creatinine Urine Total Protein Fluid Total Protein Vancomycin Trough Rheumatoid Factor Complement C4 Miscellaneous Test Crossmatch 01/03/17 01/03/17 01/04/17 18:13 23:40 05:57 WBC RBC Hgb Hct MCV MCH MCHC RDW Plt Count Lymph % (Auto) [place] % (Auto) Lymph # [place] # Baso # Seg Neutrophils % Seg Neuts % (Manual) Lymphocytes % (Manual) Monocytes % (Manual) Eosinophils % (Manual) Basophils % (Manual) Nucleated RBC % Seg Neutrophils # Seg Neutrophils # Man Lymphocytes # (Manual) Monocytes # (Manual) Eosinophils # (Manual) Basophils # (Manual) PT INR Fibrinogen dRVVT Confirm Interp Factor V Activity POC ABG pH POC ABG pCO2 POC ABG pO2 ABG pO2 ABG HCO3 ABG Base Excess ABG Hemoglobin Oxyhemoglobin Sodium Potassium Chloride Carbon Dioxide BUN Creatinine Glucose POC Glucose 107 H 129 H 111 H Lactic Acid Calcium Phosphorus Magnesium Direct Bilirubin AST ALT Alkaline Phosphatase Lactate Dehydrogenase Troponin T C-Reactive Protein Total Protein Albumin Prealbumin Triglycerides Cholesterol LDL Cholesterol Direct HDL Cholesterol PTH Intact Urine pH Urine WBC (Auto) Urine Creatinine Urine Total Protein Fluid Total Protein Vancomycin Trough Rheumatoid Factor Complement C4 Miscellaneous Test Crossmatch 01/04/17 01/04/17 01/04/17 12:46 15:27 17:11 WBC RBC Hgb Hct MCV MCH MCHC RDW Plt Count Lymph % (Auto) [place] % (Auto) Lymph # [place] # Baso # Seg Neutrophils % Seg Neuts % (Manual) Lymphocytes % (Manual) Monocytes % (Manual) Eosinophils % (Manual) Basophils % (Manual) Nucleated RBC % Seg Neutrophils # Seg Neutrophils # Man Lymphocytes # (Manual) Monocytes # (Manual) Eosinophils # (Manual) Basophils # (Manual) PT INR Fibrinogen dRVVT Confirm Interp Factor V Activity POC ABG pH POC ABG pCO2 POC ABG pO2 ABG pO2 ABG HCO3 ABG Base Excess ABG Hemoglobin Oxyhemoglobin Sodium Potassium Chloride Carbon Dioxide BUN 43 H Creatinine Glucose 124 H POC Glucose 159 H 125 H Lactic Acid Calcium 8.0 L Phosphorus 2.10 L Magnesium Direct Bilirubin AST ALT Alkaline Phosphatase Lactate Dehydrogenase Troponin T C-Reactive Protein Total Protein Albumin Prealbumin Triglycerides Cholesterol LDL Cholesterol Direct HDL Cholesterol PTH Intact Urine pH Urine WBC (Auto) Urine Creatinine Urine Total Protein Fluid Total Protein Vancomycin Trough Rheumatoid Factor Complement C4 Miscellaneous Test Crossmatch 01/04/17 01/05/17 01/05/17 23:31 04:00 05:46 WBC RBC Hgb Hct MCV MCH MCHC RDW Plt Count Lymph % (Auto) [place] % (Auto) Lymph # [place] # Baso # Seg Neutrophils % Seg Neuts % (Manual) Lymphocytes % (Manual) Monocytes % (Manual) Eosinophils % (Manual) Basophils % (Manual) Nucleated RBC % Seg Neutrophils # Seg Neutrophils # Man Lymphocytes # (Manual) Monocytes # (Manual) Eosinophils # (Manual) Basophils # (Manual) PT INR Fibrinogen dRVVT Confirm Interp Factor V Activity POC ABG pH POC ABG pCO2 POC ABG pO2 ABG pO2 ABG HCO3 ABG Base Excess ABG Hemoglobin Oxyhemoglobin Sodium Potassium Chloride Carbon Dioxide BUN 52 H Creatinine 1.3 H Glucose 113 H POC Glucose 123 H 118 H Lactic Acid Calcium Phosphorus 2.40 L Magnesium Direct Bilirubin AST ALT Alkaline Phosphatase Lactate Dehydrogenase Troponin T C-Reactive Protein Total Protein Albumin Prealbumin Triglycerides Cholesterol LDL Cholesterol Direct HDL Cholesterol PTH Intact Urine pH Urine WBC (Auto) Urine Creatinine Urine Total Protein Fluid Total Protein Vancomycin Trough Rheumatoid Factor Complement C4 Miscellaneous Test Crossmatch 01/05/17 01/05/17 01/05/17 11:41 17:48 23:27 WBC RBC Hgb Hct MCV MCH MCHC RDW Plt Count Lymph % (Auto) [place] % (Auto) Lymph # [place] # Baso # Seg Neutrophils % Seg Neuts % (Manual) Lymphocytes % (Manual) Monocytes % (Manual) Eosinophils % (Manual) Basophils % (Manual) Nucleated RBC % Seg Neutrophils # Seg Neutrophils # Man Lymphocytes # (Manual) Monocytes # (Manual) Eosinophils # (Manual) Basophils # (Manual) PT INR Fibrinogen dRVVT Confirm Interp Factor V Activity POC ABG pH POC ABG pCO2 POC ABG pO2 ABG pO2 ABG HCO3 ABG Base Excess ABG Hemoglobin Oxyhemoglobin Sodium Potassium Chloride Carbon Dioxide BUN Creatinine Glucose POC Glucose 163 H 142 H 155 H Lactic Acid Calcium Phosphorus Magnesium Direct Bilirubin AST ALT Alkaline Phosphatase Lactate Dehydrogenase Troponin T C-Reactive Protein Total Protein Albumin Prealbumin Triglycerides Cholesterol LDL Cholesterol Direct HDL Cholesterol PTH Intact Urine pH Urine WBC (Auto) Urine Creatinine Urine Total Protein Fluid Total Protein Vancomycin Trough Rheumatoid Factor Complement C4 Miscellaneous Test Crossmatch 01/06/17 01/06/17 01/06/17 05:20 07:35 11:18 WBC RBC Hgb Hct MCV MCH MCHC RDW Plt Count Lymph % (Auto) [place] % (Auto) Lymph # [place] # Baso # Seg Neutrophils % Seg Neuts % (Manual) Lymphocytes % (Manual) Monocytes % (Manual) Eosinophils % (Manual) Basophils % (Manual) Nucleated RBC % Seg Neutrophils # Seg Neutrophils # Man Lymphocytes # (Manual) Monocytes # (Manual) Eosinophils # (Manual) Basophils # (Manual) PT INR Fibrinogen dRVVT Confirm Interp Factor V Activity POC ABG pH POC ABG pCO2 POC ABG pO2 ABG pO2 ABG HCO3 ABG Base Excess ABG Hemoglobin Oxyhemoglobin Sodium Potassium Chloride Carbon Dioxide BUN 74 H Creatinine 1.6 H Glucose 135 H POC Glucose 108 H 149 H Lactic Acid Calcium Phosphorus Magnesium Direct Bilirubin AST ALT Alkaline Phosphatase Lactate Dehydrogenase Troponin T C-Reactive Protein Total Protein Albumin Prealbumin Triglycerides Cholesterol LDL Cholesterol Direct HDL Cholesterol PTH Intact Urine pH Urine WBC (Auto) Urine Creatinine Urine Total Protein Fluid Total Protein Vancomycin Trough Rheumatoid Factor Complement C4 Miscellaneous Test Crossmatch 01/06/17 01/07/17 01/07/17 17:17 00:23 05:31 WBC RBC Hgb Hct MCV MCH MCHC RDW Plt Count Lymph % (Auto) [place] % (Auto) Lymph # [place] # Baso # Seg Neutrophils % Seg Neuts % (Manual) Lymphocytes % (Manual) Monocytes % (Manual) Eosinophils % (Manual) Basophils % (Manual) Nucleated RBC % Seg Neutrophils # Seg Neutrophils # Man Lymphocytes # (Manual) Monocytes # (Manual) Eosinophils # (Manual) Basophils # (Manual) PT INR Fibrinogen dRVVT Confirm Interp Factor V Activity POC ABG pH POC ABG pCO2 POC ABG pO2 ABG pO2 ABG HCO3 ABG Base Excess ABG Hemoglobin Oxyhemoglobin Sodium Potassium Chloride Carbon Dioxide BUN Creatinine Glucose POC Glucose 146 H 165 H 153 H Lactic Acid Calcium Phosphorus Magnesium Direct Bilirubin AST ALT Alkaline Phosphatase Lactate Dehydrogenase Troponin T C-Reactive Protein Total Protein Albumin Prealbumin Triglycerides Cholesterol LDL Cholesterol Direct HDL Cholesterol PTH Intact Urine pH Urine WBC (Auto) Urine Creatinine Urine Total Protein Fluid Total Protein Vancomycin Trough Rheumatoid Factor Complement C4 Miscellaneous Test Crossmatch 01/07/17 01/07/17 01/07/17 06:00 11:39 17:11 WBC RBC Hgb Hct MCV MCH MCHC RDW Plt Count Lymph % (Auto) [place] % (Auto) Lymph # [place] # Baso # Seg Neutrophils % Seg Neuts % (Manual) Lymphocytes % (Manual) Monocytes % (Manual) Eosinophils % (Manual) Basophils % (Manual) Nucleated RBC % Seg Neutrophils # Seg Neutrophils # Man Lymphocytes # (Manual) Monocytes # (Manual) Eosinophils # (Manual) Basophils # (Manual) PT INR Fibrinogen dRVVT Confirm Interp Factor V Activity POC ABG pH POC ABG pCO2 POC ABG pO2 ABG pO2 ABG HCO3 ABG Base Excess ABG Hemoglobin Oxyhemoglobin Sodium Potassium Chloride Carbon Dioxide BUN 42 H Creatinine Glucose 175 H POC Glucose 163 H 163 H Lactic Acid Calcium Phosphorus 2.40 L D Magnesium Direct Bilirubin AST ALT Alkaline Phosphatase Lactate Dehydrogenase Troponin T C-Reactive Protein Total Protein Albumin Prealbumin Triglycerides Cholesterol LDL Cholesterol Direct HDL Cholesterol PTH Intact Urine pH Urine WBC (Auto) Urine Creatinine Urine Total Protein Fluid Total Protein Vancomycin Trough Rheumatoid Factor Complement C4 Miscellaneous Test Crossmatch 01/07/17 01/08/17 01/08/17 23:40 05:00 05:00 WBC 27.4 H RBC 2.27 L Hgb 6.1 L Hct 20.4 L MCV MCH 27 L MCHC RDW 17.8 H Plt Count Lymph % (Auto) [place] % (Auto) Lymph # [place] # Baso # Seg Neutrophils % Seg Neuts % (Manual) Lymphocytes % (Manual) Monocytes % (Manual) Eosinophils % (Manual) Basophils % (Manual) Nucleated RBC % Seg Neutrophils # Seg Neutrophils # Man Lymphocytes # (Manual) Monocytes # (Manual) Eosinophils # (Manual) Basophils # (Manual) PT INR Fibrinogen dRVVT Confirm Interp Factor V Activity POC ABG pH POC ABG pCO2 POC ABG pO2 ABG pO2 ABG HCO3 ABG Base Excess ABG Hemoglobin Oxyhemoglobin Sodium Potassium Chloride Carbon Dioxide 16 L D BUN 62 H Creatinine 1.6 H D Glucose 103 H POC Glucose 135 H Lactic Acid Calcium Phosphorus Magnesium Direct Bilirubin AST ALT Alkaline Phosphatase Lactate Dehydrogenase Troponin T C-Reactive Protein Total Protein Albumin Prealbumin Triglycerides Cholesterol LDL Cholesterol Direct HDL Cholesterol PTH Intact Urine pH Urine WBC (Auto) Urine Creatinine Urine Total Protein Fluid Total Protein Vancomycin Trough Rheumatoid Factor Complement C4 Miscellaneous Test Crossmatch 01/08/17 01/08/17 01/08/17 05:25 10:37 10:37 WBC RBC Hgb Hct MCV MCH MCHC RDW Plt Count Lymph % (Auto) [place] % (Auto) Lymph # [place] # Baso # Seg Neutrophils % Seg Neuts % (Manual) Lymphocytes % (Manual) Monocytes % (Manual) Eosinophils % (Manual) Basophils % (Manual) Nucleated RBC % Seg Neutrophils # Seg Neutrophils # Man Lymphocytes # (Manual) Monocytes # (Manual) Eosinophils # (Manual) Basophils # (Manual) PT INR Fibrinogen dRVVT Confirm Interp Factor V Activity POC ABG pH POC ABG pCO2 POC ABG pO2 ABG pO2 ABG HCO3 ABG Base Excess ABG Hemoglobin Oxyhemoglobin Sodium Potassium Chloride Carbon Dioxide BUN Creatinine Glucose POC Glucose 106 H Lactic Acid Calcium Phosphorus Magnesium Direct Bilirubin AST ALT Alkaline Phosphatase Lactate Dehydrogenase Troponin T C-Reactive Protein 24.40 H Total Protein Albumin Prealbumin Triglycerides Cholesterol LDL Cholesterol Direct HDL Cholesterol PTH Intact Urine pH Urine WBC (Auto) Urine Creatinine Urine Total Protein Fluid Total Protein Vancomycin Trough Rheumatoid Factor Complement C4 Miscellaneous Test Crossmatch See Detail 01/08/17 01/08/17 01/08/17 10:37 11:33 15:15 WBC RBC Hgb Hct MCV MCH MCHC RDW Plt Count Lymph % (Auto) [place] % (Auto) Lymph # [place] # Baso # Seg Neutrophils % Seg Neuts % (Manual) Lymphocytes % (Manual) Monocytes % (Manual) Eosinophils % (Manual) Basophils % (Manual) Nucleated RBC % Seg Neutrophils # Seg Neutrophils # Man Lymphocytes # (Manual) Monocytes # (Manual) Eosinophils # (Manual) Basophils # (Manual) PT INR Fibrinogen dRVVT Confirm Interp Factor V Activity POC ABG pH POC ABG pCO2 POC ABG pO2 ABG pO2 ABG HCO3 ABG Base Excess ABG Hemoglobin Oxyhemoglobin Sodium Potassium Chloride Carbon Dioxide BUN Creatinine Glucose POC Glucose 157 H Lactic Acid 9.70 H* 9.10 H* Calcium Phosphorus Magnesium Direct Bilirubin AST ALT Alkaline Phosphatase Lactate Dehydrogenase Troponin T C-Reactive Protein Total Protein Albumin Prealbumin Triglycerides Cholesterol LDL Cholesterol Direct HDL Cholesterol PTH Intact Urine pH Urine WBC (Auto) Urine Creatinine Urine Total Protein Fluid Total Protein Vancomycin Trough Rheumatoid Factor Complement C4 Miscellaneous Test Crossmatch 01/08/17 01/08/17 01/09/17 17:19 23:12 04:40 WBC RBC Hgb Hct MCV MCH MCHC RDW Plt Count Lymph % (Auto) [place] % (Auto) Lymph # [place] # Baso # Seg Neutrophils % Seg Neuts % (Manual) Lymphocytes % (Manual) Monocytes % (Manual) Eosinophils % (Manual) Basophils % (Manual) Nucleated RBC % Seg Neutrophils # Seg Neutrophils # Man Lymphocytes # (Manual) Monocytes # (Manual) Eosinophils # (Manual) Basophils # (Manual) PT INR Fibrinogen dRVVT Confirm Interp Factor V Activity POC ABG pH POC ABG pCO2 POC ABG pO2 ABG pO2 ABG HCO3 ABG Base Excess ABG Hemoglobin Oxyhemoglobin Sodium 147 H Potassium Chloride Carbon Dioxide BUN 82 H Creatinine 1.8 H Glucose 137 H POC Glucose 164 H 157 H Lactic Acid Calcium Phosphorus Magnesium Direct Bilirubin AST ALT Alkaline Phosphatase Lactate Dehydrogenase Troponin T C-Reactive Protein Total Protein Albumin Prealbumin Triglycerides Cholesterol LDL Cholesterol Direct HDL Cholesterol PTH Intact Urine pH Urine WBC (Auto) Urine Creatinine Urine Total Protein Fluid Total Protein Vancomycin Trough Rheumatoid Factor Complement C4 Miscellaneous Test Crossmatch 01/09/17 01/09/17 01/09/17 05:42 08:22 10:57 WBC RBC Hgb Hct MCV MCH MCHC RDW Plt Count Lymph % (Auto) [place] % (Auto) Lymph # [place] # Baso # Seg Neutrophils % Seg Neuts % (Manual) Lymphocytes % (Manual) Monocytes % (Manual) Eosinophils % (Manual) Basophils % (Manual) Nucleated RBC % Seg Neutrophils # Seg Neutrophils # Man Lymphocytes # (Manual) Monocytes # (Manual) Eosinophils # (Manual) Basophils # (Manual) PT INR Fibrinogen dRVVT Confirm Interp Factor V Activity POC ABG pH POC ABG pCO2 POC ABG pO2 ABG pO2 ABG HCO3 ABG Base Excess ABG Hemoglobin Oxyhemoglobin Sodium Potassium Chloride Carbon Dioxide BUN Creatinine Glucose POC Glucose 156 H 122 H Lactic Acid 2.30 H* Calcium Phosphorus Magnesium Direct Bilirubin AST ALT Alkaline Phosphatase Lactate Dehydrogenase Troponin T C-Reactive Protein Total Protein Albumin Prealbumin Triglycerides Cholesterol LDL Cholesterol Direct HDL Cholesterol PTH Intact Urine pH Urine WBC (Auto) Urine Creatinine Urine Total Protein Fluid Total Protein Vancomycin Trough Rheumatoid Factor Complement C4 Miscellaneous Test Crossmatch 01/09/17 01/09/17 01/09/17 13:30 17:14 18:45 WBC RBC Hgb Hct MCV MCH MCHC RDW Plt Count Lymph % (Auto) [place] % (Auto) Lymph # [place] # Baso # Seg Neutrophils % Seg Neuts % (Manual) Lymphocytes % (Manual) Monocytes % (Manual) Eosinophils % (Manual) Basophils % (Manual) Nucleated RBC % Seg Neutrophils # Seg Neutrophils # Man Lymphocytes # (Manual) Monocytes # (Manual) Eosinophils # (Manual) Basophils # (Manual) PT INR Fibrinogen dRVVT Confirm Interp Factor V Activity POC ABG pH POC ABG pCO2 POC ABG pO2 ABG pO2 ABG HCO3 ABG Base Excess ABG Hemoglobin Oxyhemoglobin Sodium Potassium Chloride Carbon Dioxide BUN Creatinine Glucose POC Glucose 127 H Lactic Acid Calcium Phosphorus Magnesium Direct Bilirubin AST ALT Alkaline Phosphatase Lactate Dehydrogenase Troponin T C-Reactive Protein 24.70 H Total Protein Albumin Prealbumin Triglycerides Cholesterol LDL Cholesterol Direct HDL Cholesterol PTH Intact Urine pH Urine WBC (Auto) Urine Creatinine Urine Total Protein Fluid Total Protein Vancomycin Trough Rheumatoid Factor Complement C4 Miscellaneous Test Flexitest 1 H Crossmatch 01/10/17 01/10/17 01/10/17 01:21 04:00 04:00 WBC 18.1 H RBC 3.22 L Hgb 8.8 L Hct 27.0 L D MCV MCH 27 L MCHC RDW 17.0 H Plt Count Lymph % (Auto) [place] % (Auto) Lymph # [place] # Baso # Seg Neutrophils % Seg Neuts % (Manual) Lymphocytes % (Manual) Monocytes % (Manual) Eosinophils % (Manual) Basophils % (Manual) Nucleated RBC % Seg Neutrophils # Seg Neutrophils # Man Lymphocytes # (Manual) Monocytes # (Manual) Eosinophils # (Manual) Basophils # (Manual) PT INR Fibrinogen dRVVT Confirm Interp Factor V Activity POC ABG pH POC ABG pCO2 POC ABG pO2 ABG pO2 ABG HCO3 ABG Base Excess ABG Hemoglobin Oxyhemoglobin Sodium Potassium Chloride Carbon Dioxide BUN 59 H Creatinine 1.3 H Glucose 122 H POC Glucose 160 H Lactic Acid Calcium Phosphorus Magnesium Direct Bilirubin AST ALT Alkaline Phosphatase Lactate Dehydrogenase Troponin T C-Reactive Protein Total Protein Albumin Prealbumin Triglycerides Cholesterol LDL Cholesterol Direct HDL Cholesterol PTH Intact Urine pH Urine WBC (Auto) Urine Creatinine Urine Total Protein Fluid Total Protein Vancomycin Trough Rheumatoid Factor Complement C4 Miscellaneous Test Crossmatch 01/10/17 01/10/17 01/10/17 05:36 12:14 17:55 WBC RBC Hgb Hct MCV MCH MCHC RDW Plt Count Lymph % (Auto) [place] % (Auto) Lymph # [place] # Baso # Seg Neutrophils % Seg Neuts % (Manual) Lymphocytes % (Manual) Monocytes % (Manual) Eosinophils % (Manual) Basophils % (Manual) Nucleated RBC % Seg Neutrophils # Seg Neutrophils # Man Lymphocytes # (Manual) Monocytes # (Manual) Eosinophils # (Manual) Basophils # (Manual) PT INR Fibrinogen dRVVT Confirm Interp Factor V Activity POC ABG pH POC ABG pCO2 POC ABG pO2 ABG pO2 ABG HCO3 ABG Base Excess ABG Hemoglobin Oxyhemoglobin Sodium Potassium Chloride Carbon Dioxide BUN Creatinine Glucose POC Glucose 163 H 120 H 144 H Lactic Acid Calcium Phosphorus Magnesium Direct Bilirubin AST ALT Alkaline Phosphatase Lactate Dehydrogenase Troponin T C-Reactive Protein Total Protein Albumin Prealbumin Triglycerides Cholesterol LDL Cholesterol Direct HDL Cholesterol PTH Intact Urine pH Urine WBC (Auto) Urine Creatinine Urine Total Protein Fluid Total Protein Vancomycin Trough Rheumatoid Factor Complement C4 Miscellaneous Test Crossmatch 01/11/17 01/11/17 01/11/17 00:09 04:00 04:00 WBC 15.8 H RBC 3.04 L Hgb 8.2 L Hct 25.5 L MCV MCH 27 L MCHC RDW 17.3 H Plt Count Lymph % (Auto) [place] % (Auto) Lymph # [place] # Baso # Seg Neutrophils % Seg Neuts % (Manual) Lymphocytes % (Manual) Monocytes % (Manual) Eosinophils % (Manual) Basophils % (Manual) Nucleated RBC % Seg Neutrophils # Seg Neutrophils # Man Lymphocytes # (Manual) Monocytes # (Manual) Eosinophils # (Manual) Basophils # (Manual) PT INR Fibrinogen dRVVT Confirm Interp Factor V Activity POC ABG pH POC ABG pCO2 POC ABG pO2 ABG pO2 ABG HCO3 ABG Base Excess ABG Hemoglobin Oxyhemoglobin Sodium Potassium Chloride Carbon Dioxide BUN 78 H Creatinine 1.6 H Glucose 109 H POC Glucose 122 H Lactic Acid Calcium Phosphorus Magnesium Direct Bilirubin AST ALT Alkaline Phosphatase Lactate Dehydrogenase Troponin T C-Reactive Protein Total Protein Albumin Prealbumin Triglycerides Cholesterol LDL Cholesterol Direct HDL Cholesterol PTH Intact Urine pH Urine WBC (Auto) Urine Creatinine Urine Total Protein Fluid Total Protein Vancomycin Trough Rheumatoid Factor Complement C4 Miscellaneous Test Crossmatch 01/11/17 01/11/17 01/11/17 12:46 18:23 23:42 WBC RBC Hgb Hct MCV MCH MCHC RDW Plt Count Lymph % (Auto) [place] % (Auto) Lymph # [place] # Baso # Seg Neutrophils % Seg Neuts % (Manual) Lymphocytes % (Manual) Monocytes % (Manual) Eosinophils % (Manual) Basophils % (Manual) Nucleated RBC % Seg Neutrophils # Seg Neutrophils # Man Lymphocytes # (Manual) Monocytes # (Manual) Eosinophils # (Manual) Basophils # (Manual) PT INR Fibrinogen dRVVT Confirm Interp Factor V Activity POC ABG pH POC ABG pCO2 POC ABG pO2 ABG pO2 ABG HCO3 ABG Base Excess ABG Hemoglobin Oxyhemoglobin Sodium Potassium Chloride Carbon Dioxide BUN Creatinine Glucose POC Glucose 148 H 125 H 124 H Lactic Acid Calcium Phosphorus Magnesium Direct Bilirubin AST ALT Alkaline Phosphatase Lactate Dehydrogenase Troponin T C-Reactive Protein Total Protein Albumin Prealbumin Triglycerides Cholesterol LDL Cholesterol Direct HDL Cholesterol PTH Intact Urine pH Urine WBC (Auto) Urine Creatinine Urine Total Protein Fluid Total Protein Vancomycin Trough Rheumatoid Factor Complement C4 Miscellaneous Test Crossmatch 01/12/17 01/12/17 01/12/17 04:30 04:30 05:47 WBC 15.8 H RBC 3.31 L Hgb 8.9 L Hct 27.9 L MCV MCH 27 L MCHC RDW 17.4 H Plt Count Lymph % (Auto) [place] % (Auto) Lymph # [place] # Baso # Seg Neutrophils % Seg Neuts % (Manual) Lymphocytes % (Manual) Monocytes % (Manual) Eosinophils % (Manual) Basophils % (Manual) Nucleated RBC % Seg Neutrophils # Seg Neutrophils # Man Lymphocytes # (Manual) Monocytes # (Manual) Eosinophils # (Manual) Basophils # (Manual) PT INR Fibrinogen dRVVT Confirm Interp Factor V Activity POC ABG pH POC ABG pCO2 POC ABG pO2 ABG pO2 ABG HCO3 ABG Base Excess ABG Hemoglobin Oxyhemoglobin Sodium Potassium Chloride Carbon Dioxide BUN 57 H Creatinine Glucose 121 H POC Glucose 110 H Lactic Acid Calcium Phosphorus 2.10 L Magnesium Direct Bilirubin AST ALT Alkaline Phosphatase Lactate Dehydrogenase Troponin T C-Reactive Protein Total Protein Albumin Prealbumin Triglycerides Cholesterol LDL Cholesterol Direct HDL Cholesterol PTH Intact Urine pH Urine WBC (Auto) Urine Creatinine Urine Total Protein Fluid Total Protein Vancomycin Trough Rheumatoid Factor Complement C4 Miscellaneous Test Crossmatch 01/12/17 01/12/17 01/12/17 11:35 17:45 23:14 WBC RBC Hgb Hct MCV MCH MCHC RDW Plt Count Lymph % (Auto) [place] % (Auto) Lymph # [place] # Baso # Seg Neutrophils % Seg Neuts % (Manual) Lymphocytes % (Manual) Monocytes % (Manual) Eosinophils % (Manual) Basophils % (Manual) Nucleated RBC % Seg Neutrophils # Seg Neutrophils # Man Lymphocytes # (Manual) Monocytes # (Manual) Eosinophils # (Manual) Basophils # (Manual) PT INR Fibrinogen dRVVT Confirm Interp Factor V Activity POC ABG pH POC ABG pCO2 POC ABG pO2 ABG pO2 ABG HCO3 ABG Base Excess ABG Hemoglobin Oxyhemoglobin Sodium Potassium Chloride Carbon Dioxide BUN Creatinine Glucose POC Glucose 146 H 117 H 123 H Lactic Acid Calcium Phosphorus Magnesium Direct Bilirubin AST ALT Alkaline Phosphatase Lactate Dehydrogenase Troponin T C-Reactive Protein Total Protein Albumin Prealbumin Triglycerides Cholesterol LDL Cholesterol Direct HDL Cholesterol PTH Intact Urine pH Urine WBC (Auto) Urine Creatinine Urine Total Protein Fluid Total Protein Vancomycin Trough Rheumatoid Factor Complement C4 Miscellaneous Test Crossmatch 01/13/17 01/13/17 01/13/17 05:32 06:00 12:10 WBC RBC Hgb Hct MCV MCH MCHC RDW Plt Count Lymph % (Auto) [place] % (Auto) Lymph # [place] # Baso # Seg Neutrophils % Seg Neuts % (Manual) Lymphocytes % (Manual) Monocytes % (Manual) Eosinophils % (Manual) Basophils % (Manual) Nucleated RBC % Seg Neutrophils # Seg Neutrophils # Man Lymphocytes # (Manual) Monocytes # (Manual) Eosinophils # (Manual) Basophils # (Manual) PT INR Fibrinogen dRVVT Confirm Interp Factor V Activity POC ABG pH POC ABG pCO2 POC ABG pO2 ABG pO2 ABG HCO3 ABG Base Excess ABG Hemoglobin Oxyhemoglobin Sodium Potassium Chloride Carbon Dioxide BUN 80 H Creatinine 1.4 H Glucose 106 H POC Glucose 106 H Lactic Acid Calcium Phosphorus Magnesium Direct Bilirubin AST ALT Alkaline Phosphatase Lactate Dehydrogenase Troponin T C-Reactive Protein Total Protein Albumin Prealbumin Triglycerides Cholesterol LDL Cholesterol Direct HDL Cholesterol PTH Intact Urine pH Urine WBC (Auto) Urine Creatinine Urine Total Protein Fluid Total Protein 3.0 L Vancomycin Trough Rheumatoid Factor Complement C4 Miscellaneous Test Crossmatch 01/13/17 01/13/17 01/13/17 12:17 15:50 17:30 WBC RBC Hgb Hct MCV MCH MCHC RDW Plt Count Lymph % (Auto) [place] % (Auto) Lymph # [place] # Baso # Seg Neutrophils % Seg Neuts % (Manual) Lymphocytes % (Manual) Monocytes % (Manual) Eosinophils % (Manual) Basophils % (Manual) Nucleated RBC % Seg Neutrophils # Seg Neutrophils # Man Lymphocytes # (Manual) Monocytes # (Manual) Eosinophils # (Manual) Basophils # (Manual) PT 15.4 H INR 1.16 H Fibrinogen dRVVT Confirm Interp Factor V Activity POC ABG pH POC ABG pCO2 POC ABG pO2 ABG pO2 ABG HCO3 ABG Base Excess ABG Hemoglobin Oxyhemoglobin Sodium Potassium Chloride Carbon Dioxide BUN Creatinine Glucose POC Glucose 168 H 110 H Lactic Acid Calcium Phosphorus Magnesium Direct Bilirubin AST ALT Alkaline Phosphatase Lactate Dehydrogenase Troponin T C-Reactive Protein Total Protein Albumin Prealbumin Triglycerides Cholesterol LDL Cholesterol Direct HDL Cholesterol PTH Intact Urine pH Urine WBC (Auto) Urine Creatinine Urine Total Protein Fluid Total Protein Vancomycin Trough Rheumatoid Factor Complement C4 Miscellaneous Test Crossmatch 01/13/17 01/14/17 01/14/17 23:42 05:24 05:30 WBC RBC Hgb Hct MCV MCH MCHC RDW Plt Count Lymph % (Auto) [place] % (Auto) Lymph # [place] # Baso # Seg Neutrophils % Seg Neuts % (Manual) Lymphocytes % (Manual) Monocytes % (Manual) Eosinophils % (Manual) Basophils % (Manual) Nucleated RBC % Seg Neutrophils # Seg Neutrophils # Man Lymphocytes # (Manual) Monocytes # (Manual) Eosinophils # (Manual) Basophils # (Manual) PT INR Fibrinogen dRVVT Confirm Interp Factor V Activity POC ABG pH POC ABG pCO2 POC ABG pO2 ABG pO2 ABG HCO3 ABG Base Excess ABG Hemoglobin Oxyhemoglobin Sodium Potassium Chloride Carbon Dioxide BUN 58 H Creatinine Glucose 114 H POC Glucose 155 H 121 H Lactic Acid Calcium Phosphorus Magnesium Direct Bilirubin AST ALT Alkaline Phosphatase Lactate Dehydrogenase Troponin T C-Reactive Protein Total Protein Albumin Prealbumin Triglycerides Cholesterol LDL Cholesterol Direct HDL Cholesterol PTH Intact Urine pH Urine WBC (Auto) Urine Creatinine Urine Total Protein Fluid Total Protein Vancomycin Trough Rheumatoid Factor Complement C4 Miscellaneous Test Crossmatch 01/14/17 01/14/17 01/15/17 12:48 17:36 00:15 WBC RBC Hgb Hct MCV MCH MCHC RDW Plt Count Lymph % (Auto) [place] % (Auto) Lymph # [place] # Baso # Seg Neutrophils % Seg Neuts % (Manual) Lymphocytes % (Manual) Monocytes % (Manual) Eosinophils % (Manual) Basophils % (Manual) Nucleated RBC % Seg Neutrophils # Seg Neutrophils # Man Lymphocytes # (Manual) Monocytes # (Manual) Eosinophils # (Manual) Basophils # (Manual) PT INR Fibrinogen dRVVT Confirm Interp Factor V Activity POC ABG pH POC ABG pCO2 POC ABG pO2 ABG pO2 ABG HCO3 ABG Base Excess ABG Hemoglobin Oxyhemoglobin Sodium Potassium Chloride Carbon Dioxide BUN Creatinine Glucose POC Glucose 130 H 135 H 132 H Lactic Acid Calcium Phosphorus Magnesium Direct Bilirubin AST ALT Alkaline Phosphatase Lactate Dehydrogenase Troponin T C-Reactive Protein Total Protein Albumin Prealbumin Triglycerides Cholesterol LDL Cholesterol Direct HDL Cholesterol PTH Intact Urine pH Urine WBC (Auto) Urine Creatinine Urine Total Protein Fluid Total Protein Vancomycin Trough Rheumatoid Factor Complement C4 Miscellaneous Test Crossmatch 01/15/17 01/15/17 01/15/17 05:01 11:55 12:45 WBC 16.2 H RBC 3.00 L Hgb 8.1 L Hct 25.4 L MCV MCH 27 L MCHC RDW 17.6 H Plt Count Lymph % (Auto) 11.7 L [place] % (Auto) 7.8 H Lymph # [place] # 1.3 H Baso # Seg Neutrophils % 80.1 H Seg Neuts % (Manual) Lymphocytes % (Manual) Monocytes % (Manual) Eosinophils % (Manual) Basophils % (Manual) Nucleated RBC % Seg Neutrophils # 13.0 H Seg Neutrophils # Man Lymphocytes # (Manual) Monocytes # (Manual) Eosinophils # (Manual) Basophils # (Manual) PT INR Fibrinogen dRVVT Confirm Interp Factor V Activity POC ABG pH POC ABG pCO2 POC ABG pO2 ABG pO2 ABG HCO3 ABG Base Excess ABG Hemoglobin Oxyhemoglobin Sodium Potassium Chloride Carbon Dioxide BUN Creatinine Glucose POC Glucose 126 H 125 H Lactic Acid Calcium Phosphorus Magnesium Direct Bilirubin AST ALT Alkaline Phosphatase Lactate Dehydrogenase Troponin T C-Reactive Protein Total Protein Albumin Prealbumin Triglycerides Cholesterol LDL Cholesterol Direct HDL Cholesterol PTH Intact Urine pH Urine WBC (Auto) Urine Creatinine Urine Total Protein Fluid Total Protein Vancomycin Trough Rheumatoid Factor Complement C4 Miscellaneous Test Crossmatch 01/15/17 01/15/17 01/15/17 12:45 17:31 23:39 WBC RBC Hgb Hct MCV MCH MCHC RDW Plt Count Lymph % (Auto) [place] % (Auto) Lymph # [place] # Baso # Seg Neutrophils % Seg Neuts % (Manual) Lymphocytes % (Manual) Monocytes % (Manual) Eosinophils % (Manual) Basophils % (Manual) Nucleated RBC % Seg Neutrophils # Seg Neutrophils # Man Lymphocytes # (Manual) Monocytes # (Manual) Eosinophils # (Manual) Basophils # (Manual) PT INR Fibrinogen dRVVT Confirm Interp Factor V Activity POC ABG pH POC ABG pCO2 POC ABG pO2 ABG pO2 ABG HCO3 ABG Base Excess ABG Hemoglobin Oxyhemoglobin Sodium 136 L Potassium Chloride Carbon Dioxide BUN 87 H Creatinine 1.7 H Glucose 108 H POC Glucose 129 H 112 H Lactic Acid Calcium Phosphorus Magnesium Direct Bilirubin AST ALT Alkaline Phosphatase Lactate Dehydrogenase Troponin T C-Reactive Protein Total Protein Albumin Prealbumin Triglycerides Cholesterol LDL Cholesterol Direct HDL Cholesterol PTH Intact Urine pH Urine WBC (Auto) Urine Creatinine Urine Total Protein Fluid Total Protein Vancomycin Trough Rheumatoid Factor Complement C4 Miscellaneous Test Crossmatch 01/16/17 01/16/17 01/16/17 05:23 11:42 12:32 WBC RBC Hgb Hct MCV MCH MCHC RDW Plt Count Lymph % (Auto) [place] % (Auto) Lymph # [place] # Baso # Seg Neutrophils % Seg Neuts % (Manual) Lymphocytes % (Manual) Monocytes % (Manual) Eosinophils % (Manual) Basophils % (Manual) Nucleated RBC % Seg Neutrophils # Seg Neutrophils # Man Lymphocytes # (Manual) Monocytes # (Manual) Eosinophils # (Manual) Basophils # (Manual) PT INR Fibrinogen dRVVT Confirm Interp Factor V Activity POC ABG pH 7.499 H POC ABG pCO2 30.9 L POC ABG pO2 51 L ABG pO2 ABG HCO3 ABG Base Excess ABG Hemoglobin Oxyhemoglobin Sodium Potassium Chloride Carbon Dioxide BUN Creatinine Glucose POC Glucose 118 H 133 H Lactic Acid Calcium Phosphorus Magnesium Direct Bilirubin AST ALT Alkaline Phosphatase Lactate Dehydrogenase Troponin T C-Reactive Protein Total Protein Albumin Prealbumin Triglycerides Cholesterol LDL Cholesterol Direct HDL Cholesterol PTH Intact Urine pH Urine WBC (Auto) Urine Creatinine Urine Total Protein Fluid Total Protein Vancomycin Trough Rheumatoid Factor Complement C4 Miscellaneous Test Crossmatch 01/16/17 01/16/17 01/16/17 17:52 23:57 Unknown WBC RBC Hgb Hct MCV MCH MCHC RDW Plt Count Lymph % (Auto) [place] % (Auto) Lymph # [place] # Baso # Seg Neutrophils % Seg Neuts % (Manual) Lymphocytes % (Manual) Monocytes % (Manual) Eosinophils % (Manual) Basophils % (Manual) Nucleated RBC % Seg Neutrophils # Seg Neutrophils # Man Lymphocytes # (Manual) Monocytes # (Manual) Eosinophils # (Manual) Basophils # (Manual) PT INR Fibrinogen dRVVT Confirm Interp Factor V Activity POC ABG pH POC ABG pCO2 POC ABG pO2 ABG pO2 ABG HCO3 ABG Base Excess ABG Hemoglobin Oxyhemoglobin Sodium 135 L Potassium Chloride Carbon Dioxide BUN 101 H Creatinine 1.8 H Glucose 117 H POC Glucose 130 H 143 H Lactic Acid Calcium Phosphorus 5.80 H Magnesium Direct Bilirubin AST ALT Alkaline Phosphatase Lactate Dehydrogenase Troponin T C-Reactive Protein Total Protein Albumin Prealbumin Triglycerides Cholesterol LDL Cholesterol Direct HDL Cholesterol PTH Intact Urine pH Urine WBC (Auto) Urine Creatinine Urine Total Protein Fluid Total Protein Vancomycin Trough Rheumatoid Factor Complement C4 Miscellaneous Test Crossmatch 01/17/17 01/17/17 01/17/17 05:30 05:46 11:49 WBC RBC Hgb Hct MCV MCH MCHC RDW Plt Count Lymph % (Auto) [place] % (Auto) Lymph # [place] # Baso # Seg Neutrophils % Seg Neuts % (Manual) Lymphocytes % (Manual) Monocytes % (Manual) Eosinophils % (Manual) Basophils % (Manual) Nucleated RBC % Seg Neutrophils # Seg Neutrophils # Man Lymphocytes # (Manual) Monocytes # (Manual) Eosinophils # (Manual) Basophils # (Manual) PT INR Fibrinogen dRVVT Confirm Interp Factor V Activity POC ABG pH POC ABG pCO2 POC ABG pO2 ABG pO2 ABG HCO3 ABG Base Excess ABG Hemoglobin Oxyhemoglobin Sodium 134 L Potassium Chloride 95.8 L Carbon Dioxide BUN 66 H Creatinine 1.3 H Glucose 138 H POC Glucose 147 H 124 H Lactic Acid Calcium Phosphorus Magnesium Direct Bilirubin AST ALT Alkaline Phosphatase 254 H Lactate Dehydrogenase Troponin T C-Reactive Protein Total Protein Albumin 1.3 L Prealbumin Triglycerides Cholesterol LDL Cholesterol Direct HDL Cholesterol PTH Intact Urine pH Urine WBC (Auto) Urine Creatinine Urine Total Protein Fluid Total Protein Vancomycin Trough Rheumatoid Factor Complement C4 Miscellaneous Test Crossmatch 01/17/17 01/17/17 01/18/17 17:30 23:41 05:15 WBC RBC Hgb Hct MCV MCH MCHC RDW Plt Count Lymph % (Auto) [place] % (Auto) Lymph # [place] # Baso # Seg Neutrophils % Seg Neuts % (Manual) Lymphocytes % (Manual) Monocytes % (Manual) Eosinophils % (Manual) Basophils % (Manual) Nucleated RBC % Seg Neutrophils # Seg Neutrophils # Man Lymphocytes # (Manual) Monocytes # (Manual) Eosinophils # (Manual) Basophils # (Manual) PT INR Fibrinogen dRVVT Confirm Interp Factor V Activity POC ABG pH POC ABG pCO2 POC ABG pO2 ABG pO2 ABG HCO3 ABG Base Excess ABG Hemoglobin Oxyhemoglobin Sodium Potassium Chloride Carbon Dioxide BUN 89 H Creatinine 1.7 H Glucose 118 H POC Glucose 137 H 119 H Lactic Acid Calcium Phosphorus Magnesium Direct Bilirubin AST ALT Alkaline Phosphatase Lactate Dehydrogenase Troponin T C-Reactive Protein Total Protein Albumin Prealbumin Triglycerides Cholesterol LDL Cholesterol Direct HDL Cholesterol PTH Intact Urine pH Urine WBC (Auto) Urine Creatinine Urine Total Protein Fluid Total Protein Vancomycin Trough Rheumatoid Factor Complement C4 Miscellaneous Test Crossmatch 01/18/17 01/18/17 01/18/17 05:19 12:16 18:11 WBC RBC Hgb Hct MCV MCH MCHC RDW Plt Count Lymph % (Auto) [place] % (Auto) Lymph # [place] # Baso # Seg Neutrophils % Seg Neuts % (Manual) Lymphocytes % (Manual) Monocytes % (Manual) Eosinophils % (Manual) Basophils % (Manual) Nucleated RBC % Seg Neutrophils # Seg Neutrophils # Man Lymphocytes # (Manual) Monocytes # (Manual) Eosinophils # (Manual) Basophils # (Manual) PT INR Fibrinogen dRVVT Confirm Interp Factor V Activity POC ABG pH POC ABG pCO2 POC ABG pO2 ABG pO2 ABG HCO3 ABG Base Excess ABG Hemoglobin Oxyhemoglobin Sodium Potassium Chloride Carbon Dioxide BUN Creatinine Glucose POC Glucose 134 H 188 H 113 H Lactic Acid Calcium Phosphorus Magnesium Direct Bilirubin AST ALT Alkaline Phosphatase Lactate Dehydrogenase Troponin T C-Reactive Protein Total Protein Albumin Prealbumin Triglycerides Cholesterol LDL Cholesterol Direct HDL Cholesterol PTH Intact Urine pH Urine WBC (Auto) Urine Creatinine Urine Total Protein Fluid Total Protein Vancomycin Trough Rheumatoid Factor Complement C4 Miscellaneous Test Crossmatch 01/19/17 01/19/17 01/19/17 00:00 05:30 05:36 WBC RBC Hgb Hct MCV MCH MCHC RDW Plt Count Lymph % (Auto) [place] % (Auto) Lymph # [place] # Baso # Seg Neutrophils % Seg Neuts % (Manual) Lymphocytes % (Manual) Monocytes % (Manual) Eosinophils % (Manual) Basophils % (Manual) Nucleated RBC % Seg Neutrophils # Seg Neutrophils # Man Lymphocytes # (Manual) Monocytes # (Manual) Eosinophils # (Manual) Basophils # (Manual) PT INR Fibrinogen dRVVT Confirm Interp Factor V Activity POC ABG pH POC ABG pCO2 POC ABG pO2 ABG pO2 ABG HCO3 ABG Base Excess ABG Hemoglobin Oxyhemoglobin Sodium Potassium Chloride Carbon Dioxide BUN 70 H Creatinine 1.5 H Glucose 121 H POC Glucose 137 H 155 H Lactic Acid Calcium Phosphorus 2.10 L D Magnesium Direct Bilirubin AST ALT Alkaline Phosphatase Lactate Dehydrogenase Troponin T C-Reactive Protein Total Protein Albumin Prealbumin Triglycerides Cholesterol LDL Cholesterol Direct HDL Cholesterol PTH Intact Urine pH Urine WBC (Auto) Urine Creatinine Urine Total Protein Fluid Total Protein Vancomycin Trough Rheumatoid Factor Complement C4 Miscellaneous Test Crossmatch 01/19/17 01/19/17 01/19/17 11:59 15:32 17:57 WBC RBC Hgb Hct MCV MCH MCHC RDW Plt Count Lymph % (Auto) [place] % (Auto) Lymph # [place] # Baso # Seg Neutrophils % Seg Neuts % (Manual) Lymphocytes % (Manual) Monocytes % (Manual) Eosinophils % (Manual) Basophils % (Manual) Nucleated RBC % Seg Neutrophils # Seg Neutrophils # Man Lymphocytes # (Manual) Monocytes # (Manual) Eosinophils # (Manual) Basophils # (Manual) PT INR Fibrinogen dRVVT Confirm Interp Factor V Activity POC ABG pH POC ABG pCO2 33.1 L POC ABG pO2 76 L ABG pO2 ABG HCO3 ABG Base Excess ABG Hemoglobin Oxyhemoglobin Sodium Potassium Chloride Carbon Dioxide BUN Creatinine Glucose POC Glucose 156 H 129 H Lactic Acid Calcium Phosphorus Magnesium Direct Bilirubin AST ALT Alkaline Phosphatase Lactate Dehydrogenase Troponin T C-Reactive Protein Total Protein Albumin Prealbumin Triglycerides Cholesterol LDL Cholesterol Direct HDL Cholesterol PTH Intact Urine pH Urine WBC (Auto) Urine Creatinine Urine Total Protein Fluid Total Protein Vancomycin Trough Rheumatoid Factor Complement C4 Miscellaneous Test Crossmatch 01/19/17 01/20/17 01/20/17 23:49 04:00 05:21 WBC RBC Hgb Hct MCV MCH MCHC RDW Plt Count Lymph % (Auto) [place] % (Auto) Lymph # [place] # Baso # Seg Neutrophils % Seg Neuts % (Manual) Lymphocytes % (Manual) Monocytes % (Manual) Eosinophils % (Manual) Basophils % (Manual) Nucleated RBC % Seg Neutrophils # Seg Neutrophils # Man Lymphocytes # (Manual) Monocytes # (Manual) Eosinophils # (Manual) Basophils # (Manual) PT INR Fibrinogen dRVVT Confirm Interp Factor V Activity POC ABG pH POC ABG pCO2 POC ABG pO2 ABG pO2 ABG HCO3 ABG Base Excess ABG Hemoglobin Oxyhemoglobin Sodium Potassium Chloride Carbon Dioxide BUN 96 H Creatinine 1.9 H Glucose 106 H POC Glucose 125 H 130 H Lactic Acid Calcium Phosphorus 2.40 L Magnesium Direct Bilirubin AST ALT Alkaline Phosphatase Lactate Dehydrogenase Troponin T C-Reactive Protein Total Protein Albumin Prealbumin Triglycerides Cholesterol LDL Cholesterol Direct HDL Cholesterol PTH Intact Urine pH Urine WBC (Auto) Urine Creatinine Urine Total Protein Fluid Total Protein Vancomycin Trough Rheumatoid Factor Complement C4 Miscellaneous Test Crossmatch 01/20/17 01/20/17 01/20/17 11:58 12:17 17:26 WBC RBC Hgb Hct MCV MCH MCHC RDW Plt Count Lymph % (Auto) [place] % (Auto) Lymph # [place] # Baso # Seg Neutrophils % Seg Neuts % (Manual) Lymphocytes % (Manual) Monocytes % (Manual) Eosinophils % (Manual) Basophils % (Manual) Nucleated RBC % Seg Neutrophils # Seg Neutrophils # Man Lymphocytes # (Manual) Monocytes # (Manual) Eosinophils # (Manual) Basophils # (Manual) PT INR Fibrinogen dRVVT Confirm Interp Factor V Activity POC ABG pH POC ABG pCO2 POC ABG pO2 70 L ABG pO2 ABG HCO3 ABG Base Excess ABG Hemoglobin Oxyhemoglobin Sodium Potassium Chloride Carbon Dioxide BUN Creatinine Glucose POC Glucose 118 H 154 H Lactic Acid Calcium Phosphorus Magnesium Direct Bilirubin AST ALT Alkaline Phosphatase Lactate Dehydrogenase Troponin T C-Reactive Protein Total Protein Albumin Prealbumin Triglycerides Cholesterol LDL Cholesterol Direct HDL Cholesterol PTH Intact Urine pH Urine WBC (Auto) Urine Creatinine Urine Total Protein Fluid Total Protein Vancomycin Trough Rheumatoid Factor Complement C4 Miscellaneous Test Crossmatch 01/21/17 01/21/17 01/21/17 04:00 04:56 11:46 WBC RBC Hgb Hct MCV MCH MCHC RDW Plt Count Lymph % (Auto) [place] % (Auto) Lymph # [place] # Baso # Seg Neutrophils % Seg Neuts % (Manual) Lymphocytes % (Manual) Monocytes % (Manual) Eosinophils % (Manual) Basophils % (Manual) Nucleated RBC % Seg Neutrophils # Seg Neutrophils # Man Lymphocytes # (Manual) Monocytes # (Manual) Eosinophils # (Manual) Basophils # (Manual) PT INR Fibrinogen dRVVT Confirm Interp Factor V Activity POC ABG pH POC ABG pCO2 POC ABG pO2 ABG pO2 ABG HCO3 ABG Base Excess ABG Hemoglobin Oxyhemoglobin Sodium Potassium 3.5 L Chloride 97.4 L Carbon Dioxide BUN 66 H Creatinine 1.4 H Glucose POC Glucose 116 H 106 H Lactic Acid Calcium Phosphorus 2.10 L Magnesium Direct Bilirubin AST ALT Alkaline Phosphatase Lactate Dehydrogenase Troponin T C-Reactive Protein Total Protein Albumin Prealbumin Triglycerides Cholesterol LDL Cholesterol Direct HDL Cholesterol PTH Intact Urine pH Urine WBC (Auto) Urine Creatinine Urine Total Protein Fluid Total Protein Vancomycin Trough Rheumatoid Factor Complement C4 Miscellaneous Test Crossmatch 1201/21/17 01/22/17 17:25 23:49 05:35 WBC RBC Hgb Hct MCV MCH MCHC RDW Plt Count Lymph % (Auto) [place] % (Auto) Lymph # [place] # Baso # Seg Neutrophils % Seg Neuts % (Manual) Lymphocytes % (Manual) Monocytes % (Manual) Eosinophils % (Manual) Basophils % (Manual) Nucleated RBC % Seg Neutrophils # Seg Neutrophils # Man Lymphocytes # (Manual) Monocytes # (Manual) Eosinophils # (Manual) Basophils # (Manual) PT INR Fibrinogen dRVVT Confirm Interp Factor V Activity POC ABG pH POC ABG pCO2 POC ABG pO2 ABG pO2 ABG HCO3 ABG Base Excess ABG Hemoglobin Oxyhemoglobin Sodium Potassium Chloride Carbon Dioxide BUN Creatinine Glucose POC Glucose 106 H 133 H 107 H Lactic Acid Calcium Phosphorus Magnesium Direct Bilirubin AST ALT Alkaline Phosphatase Lactate Dehydrogenase Troponin T C-Reactive Protein Total Protein Albumin Prealbumin Triglycerides Cholesterol LDL Cholesterol Direct HDL Cholesterol PTH Intact Urine pH Urine WBC (Auto) Urine Creatinine Urine Total Protein Fluid Total Protein Vancomycin Trough Rheumatoid Factor Complement C4 Miscellaneous Test Crossmatch 01/22/17 01/22/17 01/22/17 07:20 07:20 11:31 WBC RBC 2.75 L Hgb 7.5 L Hct 22.7 L MCV MCH 27 L MCHC RDW 17.5 H Plt Count Lymph % (Auto) [place] % (Auto) Lymph # [place] # Baso # Seg Neutrophils % Seg Neuts % (Manual) Lymphocytes % (Manual) Monocytes % (Manual) Eosinophils % (Manual) Basophils % (Manual) Nucleated RBC % Seg Neutrophils # Seg Neutrophils # Man Lymphocytes # (Manual) Monocytes # (Manual) Eosinophils # (Manual) Basophils # (Manual) PT INR Fibrinogen dRVVT Confirm Interp Factor V Activity POC ABG pH POC ABG pCO2 POC ABG pO2 ABG pO2 ABG HCO3 ABG Base Excess ABG Hemoglobin Oxyhemoglobin Sodium Potassium 3.3 L Chloride Carbon Dioxide BUN 42 H Creatinine Glucose 105 H POC Glucose 124 H Lactic Acid Calcium Phosphorus 1.70 L Magnesium Direct Bilirubin AST ALT Alkaline Phosphatase Lactate Dehydrogenase Troponin T C-Reactive Protein Total Protein Albumin Prealbumin Triglycerides Cholesterol LDL Cholesterol Direct HDL Cholesterol PTH Intact Urine pH Urine WBC (Auto) Urine Creatinine Urine Total Protein Fluid Total Protein Vancomycin Trough Rheumatoid Factor Complement C4 Miscellaneous Test Crossmatch 01/22/17 01/22/17 01/23/17 17:16 23:35 05:35 WBC RBC Hgb Hct MCV MCH MCHC RDW Plt Count Lymph % (Auto) [place] % (Auto) Lymph # [place] # Baso # Seg Neutrophils % Seg Neuts % (Manual) Lymphocytes % (Manual) Monocytes % (Manual) Eosinophils % (Manual) Basophils % (Manual) Nucleated RBC % Seg Neutrophils # Seg Neutrophils # Man Lymphocytes # (Manual) Monocytes # (Manual) Eosinophils # (Manual) Basophils # (Manual) PT INR Fibrinogen dRVVT Confirm Interp Factor V Activity POC ABG pH POC ABG pCO2 POC ABG pO2 ABG pO2 ABG HCO3 ABG Base Excess ABG Hemoglobin Oxyhemoglobin Sodium Potassium Chloride Carbon Dioxide BUN Creatinine Glucose POC Glucose 135 H 120 H 111 H Lactic Acid Calcium Phosphorus Magnesium Direct Bilirubin AST ALT Alkaline Phosphatase Lactate Dehydrogenase Troponin T C-Reactive Protein Total Protein Albumin Prealbumin Triglycerides Cholesterol LDL Cholesterol Direct HDL Cholesterol PTH Intact Urine pH Urine WBC (Auto) Urine Creatinine Urine Total Protein Fluid Total Protein Vancomycin Trough Rheumatoid Factor Complement C4 Miscellaneous Test Crossmatch 01/23/17 01/23/17 01/23/17 06:10 17:27 23:44 WBC RBC Hgb Hct MCV MCH MCHC RDW Plt Count Lymph % (Auto) [place] % (Auto) Lymph # [place] # Baso # Seg Neutrophils % Seg Neuts % (Manual) Lymphocytes % (Manual) Monocytes % (Manual) Eosinophils % (Manual) Basophils % (Manual) Nucleated RBC % Seg Neutrophils # Seg Neutrophils # Man Lymphocytes # (Manual) Monocytes # (Manual) Eosinophils # (Manual) Basophils # (Manual) PT INR Fibrinogen dRVVT Confirm Interp Factor V Activity POC ABG pH POC ABG pCO2 POC ABG pO2 ABG pO2 ABG HCO3 ABG Base Excess ABG Hemoglobin Oxyhemoglobin Sodium Potassium 3.3 L Chloride Carbon Dioxide BUN 66 H Creatinine 1.3 H Glucose 109 H POC Glucose 120 H 115 H Lactic Acid Calcium Phosphorus 2.20 L D Magnesium Direct Bilirubin AST ALT Alkaline Phosphatase Lactate Dehydrogenase Troponin T C-Reactive Protein Total Protein Albumin Prealbumin Triglycerides Cholesterol LDL Cholesterol Direct HDL Cholesterol PTH Intact Urine pH Urine WBC (Auto) Urine Creatinine Urine Total Protein Fluid Total Protein Vancomycin Trough Rheumatoid Factor Complement C4 Miscellaneous Test Crossmatch 01/24/17 01/24/17 01/24/17 05:19 05:50 12:19 WBC RBC Hgb Hct MCV MCH MCHC RDW Plt Count Lymph % (Auto) [place] % (Auto) Lymph # [place] # Baso # Seg Neutrophils % Seg Neuts % (Manual) Lymphocytes % (Manual) Monocytes % (Manual) Eosinophils % (Manual) Basophils % (Manual) Nucleated RBC % Seg Neutrophils # Seg Neutrophils # Man Lymphocytes # (Manual) Monocytes # (Manual) Eosinophils # (Manual) Basophils # (Manual) PT INR Fibrinogen dRVVT Confirm Interp Factor V Activity POC ABG pH POC ABG pCO2 POC ABG pO2 ABG pO2 ABG HCO3 ABG Base Excess ABG Hemoglobin Oxyhemoglobin Sodium Potassium Chloride Carbon Dioxide BUN 47 H Creatinine Glucose 117 H POC Glucose 126 H 119 H Lactic Acid Calcium Phosphorus 2.30 L Magnesium 1.60 L Direct Bilirubin AST ALT Alkaline Phosphatase Lactate Dehydrogenase Troponin T C-Reactive Protein Total Protein Albumin Prealbumin Triglycerides Cholesterol LDL Cholesterol Direct HDL Cholesterol PTH Intact Urine pH Urine WBC (Auto) Urine Creatinine Urine Total Protein Fluid Total Protein Vancomycin Trough Rheumatoid Factor Complement C4 Miscellaneous Test Crossmatch 01/24/17 01/25/17 01/25/17 17:08 00:37 04:00 WBC RBC Hgb Hct MCV MCH MCHC RDW Plt Count Lymph % (Auto) [place] % (Auto) Lymph # [place] # Baso # Seg Neutrophils % Seg Neuts % (Manual) Lymphocytes % (Manual) Monocytes % (Manual) Eosinophils % (Manual) Basophils % (Manual) Nucleated RBC % Seg Neutrophils # Seg Neutrophils # Man Lymphocytes # (Manual) Monocytes # (Manual) Eosinophils # (Manual) Basophils # (Manual) PT INR Fibrinogen dRVVT Confirm Interp Factor V Activity POC ABG pH POC ABG pCO2 POC ABG pO2 ABG pO2 ABG HCO3 ABG Base Excess ABG Hemoglobin Oxyhemoglobin Sodium Potassium Chloride Carbon Dioxide BUN 72 H Creatinine 1.3 H Glucose POC Glucose 127 H 110 H Lactic Acid Calcium Phosphorus Magnesium Direct Bilirubin AST ALT Alkaline Phosphatase Lactate Dehydrogenase Troponin T C-Reactive Protein Total Protein Albumin Prealbumin Triglycerides Cholesterol LDL Cholesterol Direct HDL Cholesterol PTH Intact Urine pH Urine WBC (Auto) Urine Creatinine Urine Total Protein Fluid Total Protein Vancomycin Trough Rheumatoid Factor Complement C4 Miscellaneous Test Crossmatch 01/25/17 01/25/17 01/25/17 04:00 11:15 13:05 WBC RBC 2.49 L Hgb 6.7 L Hct 20.9 L MCV MCH 27 L MCHC RDW 18.8 H Plt Count Lymph % (Auto) [place] % (Auto) 10.1 H Lymph # [place] # 1.0 H Baso # Seg Neutrophils % Seg Neuts % (Manual) Lymphocytes % (Manual) Monocytes % (Manual) Eosinophils % (Manual) Basophils % (Manual) Nucleated RBC % Seg Neutrophils # Seg Neutrophils # Man Lymphocytes # (Manual) Monocytes # (Manual) Eosinophils # (Manual) Basophils # (Manual) PT INR Fibrinogen dRVVT Confirm Interp Factor V Activity POC ABG pH POC ABG pCO2 POC ABG pO2 ABG pO2 ABG HCO3 ABG Base Excess ABG Hemoglobin Oxyhemoglobin Sodium Potassium Chloride Carbon Dioxide BUN Creatinine Glucose POC Glucose 128 H Lactic Acid Calcium Phosphorus Magnesium Direct Bilirubin AST ALT Alkaline Phosphatase Lactate Dehydrogenase Troponin T C-Reactive Protein Total Protein Albumin Prealbumin Triglycerides Cholesterol LDL Cholesterol Direct HDL Cholesterol PTH Intact Urine pH Urine WBC (Auto) Urine Creatinine Urine Total Protein Fluid Total Protein Vancomycin Trough Rheumatoid Factor Complement C4 Miscellaneous Test Crossmatch See Detail 01/25/17 01/25/17 01/26/17 18:02 23:07 01:20 WBC RBC Hgb Hct MCV MCH MCHC RDW Plt Count Lymph % (Auto) [place] % (Auto) Lymph # [place] # Baso # Seg Neutrophils % Seg Neuts % (Manual) Lymphocytes % (Manual) Monocytes % (Manual) Eosinophils % (Manual) Basophils % (Manual) Nucleated RBC % Seg Neutrophils # Seg Neutrophils # Man Lymphocytes # (Manual) Monocytes # (Manual) Eosinophils # (Manual) Basophils # (Manual) PT INR Fibrinogen dRVVT Confirm Interp Factor V Activity POC ABG pH POC ABG pCO2 POC ABG pO2 ABG pO2 ABG HCO3 ABG Base Excess ABG Hemoglobin Oxyhemoglobin Sodium Potassium Chloride Carbon Dioxide BUN Creatinine Glucose POC Glucose 120 H 123 H 112 H Lactic Acid Calcium Phosphorus Magnesium Direct Bilirubin AST ALT Alkaline Phosphatase Lactate Dehydrogenase Troponin T C-Reactive Protein Total Protein Albumin Prealbumin Triglycerides Cholesterol LDL Cholesterol Direct HDL Cholesterol PTH Intact Urine pH Urine WBC (Auto) Urine Creatinine Urine Total Protein Fluid Total Protein Vancomycin Trough Rheumatoid Factor Complement C4 Miscellaneous Test Crossmatch 01/26/17 01/26/17 01/26/17 04:20 04:20 11:23 WBC 13.1 H RBC 3.28 L Hgb 9.0 L Hct 26.9 L D MCV MCH 27 L MCHC RDW 17.2 H Plt Count Lymph % (Auto) [place] % (Auto) 9.0 H Lymph # [place] # 1.2 H Baso # Seg Neutrophils % 73.1 H Seg Neuts % (Manual) Lymphocytes % (Manual) Monocytes % (Manual) Eosinophils % (Manual) Basophils % (Manual) Nucleated RBC % Seg Neutrophils # 9.6 H Seg Neutrophils # Man Lymphocytes # (Manual) Monocytes # (Manual) Eosinophils # (Manual) Basophils # (Manual) PT INR Fibrinogen dRVVT Confirm Interp Factor V Activity POC ABG pH POC ABG pCO2 POC ABG pO2 ABG pO2 ABG HCO3 ABG Base Excess ABG Hemoglobin Oxyhemoglobin Sodium Potassium Chloride Carbon Dioxide BUN 51 H Creatinine Glucose 117 H POC Glucose 125 H Lactic Acid Calcium Phosphorus Magnesium Direct Bilirubin AST ALT Alkaline Phosphatase Lactate Dehydrogenase Troponin T C-Reactive Protein Total Protein Albumin Prealbumin Triglycerides Cholesterol LDL Cholesterol Direct HDL Cholesterol PTH Intact Urine pH Urine WBC (Auto) Urine Creatinine Urine Total Protein Fluid Total Protein Vancomycin Trough Rheumatoid Factor Complement C4 Miscellaneous Test Crossmatch 01/26/17 01/27/17 01/27/17 17:11 00:30 04:00 WBC RBC Hgb Hct MCV MCH MCHC RDW Plt Count Lymph % (Auto) [place] % (Auto) Lymph # [place] # Baso # Seg Neutrophils % Seg Neuts % (Manual) Lymphocytes % (Manual) Monocytes % (Manual) Eosinophils % (Manual) Basophils % (Manual) Nucleated RBC % Seg Neutrophils # Seg Neutrophils # Man Lymphocytes # (Manual) Monocytes # (Manual) Eosinophils # (Manual) Basophils # (Manual) PT INR Fibrinogen dRVVT Confirm Interp Factor V Activity POC ABG pH POC ABG pCO2 POC ABG pO2 ABG pO2 ABG HCO3 ABG Base Excess ABG Hemoglobin Oxyhemoglobin Sodium Potassium Chloride 97.7 L Carbon Dioxide 21 L BUN 79 H Creatinine 1.7 H D Glucose 112 H POC Glucose 133 H 135 H Lactic Acid Calcium Phosphorus 5.00 H D Magnesium Direct Bilirubin AST ALT Alkaline Phosphatase Lactate Dehydrogenase Troponin T C-Reactive Protein Total Protein Albumin Prealbumin Triglycerides Cholesterol LDL Cholesterol Direct HDL Cholesterol PTH Intact Urine pH Urine WBC (Auto) Urine Creatinine Urine Total Protein Fluid Total Protein Vancomycin Trough Rheumatoid Factor Complement C4 Miscellaneous Test Crossmatch 01/27/17 01/27/17 01/27/17 05:12 12:18 17:25 WBC RBC Hgb Hct MCV MCH MCHC RDW Plt Count Lymph % (Auto) [place] % (Auto) Lymph # [place] # Baso # Seg Neutrophils % Seg Neuts % (Manual) Lymphocytes % (Manual) Monocytes % (Manual) Eosinophils % (Manual) Basophils % (Manual) Nucleated RBC % Seg Neutrophils # Seg Neutrophils # Man Lymphocytes # (Manual) Monocytes # (Manual) Eosinophils # (Manual) Basophils # (Manual) PT INR Fibrinogen dRVVT Confirm Interp Factor V Activity POC ABG pH POC ABG pCO2 POC ABG pO2 ABG pO2 ABG HCO3 ABG Base Excess ABG Hemoglobin Oxyhemoglobin Sodium Potassium Chloride Carbon Dioxide BUN Creatinine Glucose POC Glucose 116 H 153 H 152 H Lactic Acid Calcium Phosphorus Magnesium Direct Bilirubin AST ALT Alkaline Phosphatase Lactate Dehydrogenase Troponin T C-Reactive Protein Total Protein Albumin Prealbumin Triglycerides Cholesterol LDL Cholesterol Direct HDL Cholesterol PTH Intact Urine pH Urine WBC (Auto) Urine Creatinine Urine Total Protein Fluid Total Protein Vancomycin Trough Rheumatoid Factor Complement C4 Miscellaneous Test Crossmatch 01/27/17 01/28/17 01/28/17 23:42 04:00 04:00 WBC 14.4 H RBC 2.82 L Hgb 7.4 L Hct 23.5 L MCV MCH 26 L MCHC RDW 17.6 H Plt Count Lymph % (Auto) 10.2 L [place] % (Auto) 11.0 H Lymph # [place] # 1.6 H Baso # Seg Neutrophils % 78.0 H Seg Neuts % (Manual) Lymphocytes % (Manual) Monocytes % (Manual) Eosinophils % (Manual) Basophils % (Manual) Nucleated RBC % Seg Neutrophils # 11.3 H Seg Neutrophils # Man Lymphocytes # (Manual) Monocytes # (Manual) Eosinophils # (Manual) Basophils # (Manual) PT INR Fibrinogen dRVVT Confirm Interp Factor V Activity POC ABG pH POC ABG pCO2 POC ABG pO2 ABG pO2 ABG HCO3 ABG Base Excess ABG Hemoglobin Oxyhemoglobin Sodium Potassium Chloride Carbon Dioxide BUN 55 H Creatinine 1.3 H Glucose 114 H POC Glucose 121 H Lactic Acid Calcium Phosphorus Magnesium Direct Bilirubin AST ALT Alkaline Phosphatase Lactate Dehydrogenase Troponin T C-Reactive Protein Total Protein Albumin 1.4 L Prealbumin Triglycerides Cholesterol LDL Cholesterol Direct HDL Cholesterol PTH Intact Urine pH Urine WBC (Auto) Urine Creatinine Urine Total Protein Fluid Total Protein Vancomycin Trough Rheumatoid Factor Complement C4 Miscellaneous Test Crossmatch 01/28/17 01/28/17 01/29/17 04:59 12:30 00:02 WBC RBC Hgb Hct MCV MCH MCHC RDW Plt Count Lymph % (Auto) [place] % (Auto) Lymph # [place] # Baso # Seg Neutrophils % Seg Neuts % (Manual) Lymphocytes % (Manual) Monocytes % (Manual) Eosinophils % (Manual) Basophils % (Manual) Nucleated RBC % Seg Neutrophils # Seg Neutrophils # Man Lymphocytes # (Manual) Monocytes # (Manual) Eosinophils # (Manual) Basophils # (Manual) PT INR Fibrinogen dRVVT Confirm Interp Factor V Activity POC ABG pH POC ABG pCO2 POC ABG pO2 ABG pO2 ABG HCO3 ABG Base Excess ABG Hemoglobin Oxyhemoglobin Sodium Potassium Chloride Carbon Dioxide BUN Creatinine Glucose POC Glucose 126 H 119 H 138 H Lactic Acid Calcium Phosphorus Magnesium Direct Bilirubin AST ALT Alkaline Phosphatase Lactate Dehydrogenase Troponin T C-Reactive Protein Total Protein Albumin Prealbumin Triglycerides Cholesterol LDL Cholesterol Direct HDL Cholesterol PTH Intact Urine pH Urine WBC (Auto) Urine Creatinine Urine Total Protein Fluid Total Protein Vancomycin Trough Rheumatoid Factor Complement C4 Miscellaneous Test Crossmatch 01/29/17 01/29/17 01/29/17 04:58 06:15 11:35 WBC RBC Hgb Hct MCV MCH MCHC RDW Plt Count Lymph % (Auto) [place] % (Auto) Lymph # [place] # Baso # Seg Neutrophils % Seg Neuts % (Manual) Lymphocytes % (Manual) Monocytes % (Manual) Eosinophils % (Manual) Basophils % (Manual) Nucleated RBC % Seg Neutrophils # Seg Neutrophils # Man Lymphocytes # (Manual) Monocytes # (Manual) Eosinophils # (Manual) Basophils # (Manual) PT INR Fibrinogen dRVVT Confirm Interp Factor V Activity POC ABG pH POC ABG pCO2 POC ABG pO2 ABG pO2 ABG HCO3 ABG Base Excess ABG Hemoglobin Oxyhemoglobin Sodium Potassium Chloride Carbon Dioxide BUN 85 H Creatinine 1.7 H Glucose 105 H POC Glucose 114 H 110 H Lactic Acid Calcium Phosphorus Magnesium 2.40 H Direct Bilirubin AST ALT Alkaline Phosphatase Lactate Dehydrogenase Troponin T C-Reactive Protein Total Protein Albumin Prealbumin Triglycerides Cholesterol LDL Cholesterol Direct HDL Cholesterol PTH Intact Urine pH Urine WBC (Auto) Urine Creatinine Urine Total Protein Fluid Total Protein Vancomycin Trough Rheumatoid Factor Complement C4 Miscellaneous Test Crossmatch 01/29/17 01/29/17 01/30/17 18:24 23:41 05:12 WBC RBC Hgb Hct MCV MCH MCHC RDW Plt Count Lymph % (Auto) [place] % (Auto) Lymph # [place] # Baso # Seg Neutrophils % Seg Neuts % (Manual) Lymphocytes % (Manual) Monocytes % (Manual) Eosinophils % (Manual) Basophils % (Manual) Nucleated RBC % Seg Neutrophils # Seg Neutrophils # Man Lymphocytes # (Manual) Monocytes # (Manual) Eosinophils # (Manual) Basophils # (Manual) PT INR Fibrinogen dRVVT Confirm Interp Factor V Activity POC ABG pH POC ABG pCO2 POC ABG pO2 ABG pO2 ABG HCO3 ABG Base Excess ABG Hemoglobin Oxyhemoglobin Sodium Potassium Chloride Carbon Dioxide BUN Creatinine Glucose POC Glucose 109 H 134 H 109 H Lactic Acid Calcium Phosphorus Magnesium Direct Bilirubin AST ALT Alkaline Phosphatase Lactate Dehydrogenase Troponin T C-Reactive Protein Total Protein Albumin Prealbumin Triglycerides Cholesterol LDL Cholesterol Direct HDL Cholesterol PTH Intact Urine pH Urine WBC (Auto) Urine Creatinine Urine Total Protein Fluid Total Protein Vancomycin Trough Rheumatoid Factor Complement C4 Miscellaneous Test Crossmatch 01/30/17 01/30/17 01/30/17 11:26 17:43 23:39 WBC RBC Hgb Hct MCV MCH MCHC RDW Plt Count Lymph % (Auto) [place] % (Auto) Lymph # [place] # Baso # Seg Neutrophils % Seg Neuts % (Manual) Lymphocytes % (Manual) Monocytes % (Manual) Eosinophils % (Manual) Basophils % (Manual) Nucleated RBC % Seg Neutrophils # Seg Neutrophils # Man Lymphocytes # (Manual) Monocytes # (Manual) Eosinophils # (Manual) Basophils # (Manual) PT INR Fibrinogen dRVVT Confirm Interp Factor V Activity POC ABG pH POC ABG pCO2 POC ABG pO2 ABG pO2 ABG HCO3 ABG Base Excess ABG Hemoglobin Oxyhemoglobin Sodium Potassium Chloride Carbon Dioxide BUN Creatinine Glucose POC Glucose 135 H 143 H 122 H Lactic Acid Calcium Phosphorus Magnesium Direct Bilirubin AST ALT Alkaline Phosphatase Lactate Dehydrogenase Troponin T C-Reactive Protein Total Protein Albumin Prealbumin Triglycerides Cholesterol LDL Cholesterol Direct HDL Cholesterol PTH Intact Urine pH Urine WBC (Auto) Urine Creatinine Urine Total Protein Fluid Total Protein Vancomycin Trough Rheumatoid Factor Complement C4 Miscellaneous Test Crossmatch 01/31/17 01/31/17 01/31/17 04:00 05:40 11:12 WBC RBC Hgb Hct MCV MCH MCHC RDW Plt Count Lymph % (Auto) [place] % (Auto) Lymph # [place] # Baso # Seg Neutrophils % Seg Neuts % (Manual) Lymphocytes % (Manual) Monocytes % (Manual) Eosinophils % (Manual) Basophils % (Manual) Nucleated RBC % Seg Neutrophils # Seg Neutrophils # Man Lymphocytes # (Manual) Monocytes # (Manual) Eosinophils # (Manual) Basophils # (Manual) PT INR Fibrinogen dRVVT Confirm Interp Factor V Activity POC ABG pH POC ABG pCO2 POC ABG pO2 ABG pO2 ABG HCO3 ABG Base Excess ABG Hemoglobin Oxyhemoglobin Sodium Potassium Chloride Carbon Dioxide BUN 78 H Creatinine 1.5 H Glucose 108 H POC Glucose 123 H Lactic Acid Calcium Phosphorus Magnesium Direct Bilirubin AST ALT Alkaline Phosphatase Lactate Dehydrogenase Troponin T C-Reactive Protein 8.10 H Total Protein Albumin Prealbumin Triglycerides Cholesterol LDL Cholesterol Direct HDL Cholesterol PTH Intact Urine pH Urine WBC (Auto) Urine Creatinine Urine Total Protein Fluid Total Protein Vancomycin Trough Rheumatoid Factor Complement C4 Miscellaneous Test Crossmatch 01/31/17 01/31/17 01/31/17 11:16 17:45 17:50 WBC RBC Hgb Hct MCV MCH MCHC RDW Plt Count Lymph % (Auto) [place] % (Auto) Lymph # [place] # Baso # Seg Neutrophils % Seg Neuts % (Manual) Lymphocytes % (Manual) Monocytes % (Manual) Eosinophils % (Manual) Basophils % (Manual) Nucleated RBC % Seg Neutrophils # Seg Neutrophils # Man Lymphocytes # (Manual) Monocytes # (Manual) Eosinophils # (Manual) Basophils # (Manual) PT INR Fibrinogen dRVVT Confirm Interp Factor V Activity POC ABG pH POC ABG pCO2 POC ABG pO2 ABG pO2 ABG HCO3 ABG Base Excess ABG Hemoglobin Oxyhemoglobin Sodium Potassium Chloride Carbon Dioxide BUN Creatinine Glucose POC Glucose 119 H 111 H Lactic Acid Calcium Phosphorus Magnesium Direct Bilirubin AST ALT Alkaline Phosphatase Lactate Dehydrogenase Troponin T C-Reactive Protein Total Protein Albumin Prealbumin Triglycerides Cholesterol LDL Cholesterol Direct HDL Cholesterol PTH Intact 6.76 L Urine pH Urine WBC (Auto) Urine Creatinine Urine Total Protein Fluid Total Protein Vancomycin Trough Rheumatoid Factor Complement C4 Miscellaneous Test Crossmatch 01/31/17 02/01/17 02/01/17 23:19 05:42 09:24 WBC RBC Hgb Hct MCV MCH MCHC RDW Plt Count Lymph % (Auto) [place] % (Auto) Lymph # [place] # Baso # Seg Neutrophils % Seg Neuts % (Manual) Lymphocytes % (Manual) Monocytes % (Manual) Eosinophils % (Manual) Basophils % (Manual) Nucleated RBC % Seg Neutrophils # Seg Neutrophils # Man Lymphocytes # (Manual) Monocytes # (Manual) Eosinophils # (Manual) Basophils # (Manual) PT INR Fibrinogen dRVVT Confirm Interp Factor V Activity POC ABG pH POC ABG pCO2 POC ABG pO2 ABG pO2 ABG HCO3 ABG Base Excess ABG Hemoglobin Oxyhemoglobin Sodium Potassium Chloride Carbon Dioxide BUN Creatinine Glucose POC Glucose 118 H 122 H Lactic Acid Calcium Phosphorus Magnesium 2.60 H Direct Bilirubin AST ALT Alkaline Phosphatase Lactate Dehydrogenase Troponin T C-Reactive Protein Total Protein Albumin Prealbumin Triglycerides Cholesterol LDL Cholesterol Direct HDL Cholesterol PTH Intact Urine pH Urine WBC (Auto) Urine Creatinine Urine Total Protein Fluid Total Protein Vancomycin Trough Rheumatoid Factor Complement C4 Miscellaneous Test Crossmatch 02/01/17 02/01/17 02/02/17 09:24 12:15 07:40 WBC RBC Hgb Hct MCV MCH MCHC RDW Plt Count Lymph % (Auto) [place] % (Auto) Lymph # [place] # Baso # Seg Neutrophils % Seg Neuts % (Manual) Lymphocytes % (Manual) Monocytes % (Manual) Eosinophils % (Manual) Basophils % (Manual) Nucleated RBC % Seg Neutrophils # Seg Neutrophils # Man Lymphocytes # (Manual) Monocytes # (Manual) Eosinophils # (Manual) Basophils # (Manual) PT INR Fibrinogen dRVVT Confirm Interp Factor V Activity POC ABG pH POC ABG pCO2 POC ABG pO2 ABG pO2 ABG HCO3 ABG Base Excess ABG Hemoglobin Oxyhemoglobin Sodium Potassium Chloride Carbon Dioxide BUN 102 H 72 H Creatinine 1.9 H 1.5 H Glucose 120 H POC Glucose 156 H Lactic Acid Calcium Phosphorus Magnesium Direct Bilirubin AST ALT Alkaline Phosphatase Lactate Dehydrogenase Troponin T C-Reactive Protein Total Protein Albumin Prealbumin Triglycerides Cholesterol LDL Cholesterol Direct HDL Cholesterol PTH Intact Urine pH Urine WBC (Auto) Urine Creatinine Urine Total Protein Fluid Total Protein Vancomycin Trough Rheumatoid Factor Complement C4 Miscellaneous Test Crossmatch 02/02/17 02/02/17 02/03/17 10:16 12:11 00:08 WBC 12.0 H RBC 3.08 L Hgb 8.3 L Hct 25.6 L MCV MCH 27 L MCHC RDW 18.2 H Plt Count Lymph % (Auto) [place] % (Auto) Lymph # [place] # Baso # Seg Neutrophils % 78.4 H Seg Neuts % (Manual) Lymphocytes % (Manual) Monocytes % (Manual) Eosinophils % (Manual) Basophils % (Manual) Nucleated RBC % Seg Neutrophils # 9.4 H Seg Neutrophils # Man Lymphocytes # (Manual) Monocytes # (Manual) Eosinophils # (Manual) Basophils # (Manual) PT INR Fibrinogen dRVVT Confirm Interp Factor V Activity POC ABG pH POC ABG pCO2 POC ABG pO2 ABG pO2 ABG HCO3 ABG Base Excess ABG Hemoglobin Oxyhemoglobin Sodium Potassium Chloride Carbon Dioxide BUN Creatinine Glucose POC Glucose 110 H 120 H Lactic Acid Calcium Phosphorus Magnesium Direct Bilirubin AST ALT Alkaline Phosphatase Lactate Dehydrogenase Troponin T C-Reactive Protein Total Protein Albumin Prealbumin Triglycerides Cholesterol LDL Cholesterol Direct HDL Cholesterol PTH Intact Urine pH Urine WBC (Auto) Urine Creatinine Urine Total Protein Fluid Total Protein Vancomycin Trough Rheumatoid Factor Complement C4 Miscellaneous Test Crossmatch 02/03/17 02/03/17 02/03/17 05:41 07:38 11:31 WBC RBC Hgb Hct MCV MCH MCHC RDW Plt Count Lymph % (Auto) [place] % (Auto) Lymph # [place] # Baso # Seg Neutrophils % Seg Neuts % (Manual) Lymphocytes % (Manual) Monocytes % (Manual) Eosinophils % (Manual) Basophils % (Manual) Nucleated RBC % Seg Neutrophils # Seg Neutrophils # Man Lymphocytes # (Manual) Monocytes # (Manual) Eosinophils # (Manual) Basophils # (Manual) PT INR Fibrinogen dRVVT Confirm Interp Factor V Activity POC ABG pH POC ABG pCO2 POC ABG pO2 ABG pO2 ABG HCO3 ABG Base Excess ABG Hemoglobin Oxyhemoglobin Sodium 134 L Potassium Chloride Carbon Dioxide 21 L BUN 91 H Creatinine 1.9 H Glucose 110 H POC Glucose 119 H 119 H Lactic Acid Calcium 10.3 H Phosphorus Magnesium Direct Bilirubin AST ALT Alkaline Phosphatase Lactate Dehydrogenase Troponin T C-Reactive Protein Total Protein Albumin Prealbumin Triglycerides Cholesterol LDL Cholesterol Direct HDL Cholesterol PTH Intact Urine pH Urine WBC (Auto) Urine Creatinine Urine Total Protein Fluid Total Protein Vancomycin Trough Rheumatoid Factor Complement C4 Miscellaneous Test Crossmatch 02/03/17 02/04/17 02/04/17 17:13 04:00 05:18 WBC RBC Hgb Hct MCV MCH MCHC RDW Plt Count Lymph % (Auto) [place] % (Auto) Lymph # [place] # Baso # Seg Neutrophils % Seg Neuts % (Manual) Lymphocytes % (Manual) Monocytes % (Manual) Eosinophils % (Manual) Basophils % (Manual) Nucleated RBC % Seg Neutrophils # Seg Neutrophils # Man Lymphocytes # (Manual) Monocytes # (Manual) Eosinophils # (Manual) Basophils # (Manual) PT INR Fibrinogen dRVVT Confirm Interp Factor V Activity POC ABG pH POC ABG pCO2 POC ABG pO2 ABG pO2 ABG HCO3 ABG Base Excess ABG Hemoglobin Oxyhemoglobin Sodium 136 L Potassium Chloride Carbon Dioxide BUN 58 H Creatinine 1.3 H Glucose 103 H POC Glucose 133 H 132 H Lactic Acid Calcium Phosphorus 2.00 L D Magnesium 1.60 L Direct Bilirubin AST ALT Alkaline Phosphatase Lactate Dehydrogenase Troponin T C-Reactive Protein Total Protein Albumin Prealbumin Triglycerides Cholesterol LDL Cholesterol Direct HDL Cholesterol PTH Intact Urine pH Urine WBC (Auto) Urine Creatinine Urine Total Protein Fluid Total Protein Vancomycin Trough Rheumatoid Factor Complement C4 Miscellaneous Test Crossmatch 02/05/17 02/05/17 02/05/17 00:01 04:00 06:42 WBC RBC Hgb Hct MCV MCH MCHC RDW Plt Count Lymph % (Auto) [place] % (Auto) Lymph # [place] # Baso # Seg Neutrophils % Seg Neuts % (Manual) Lymphocytes % (Manual) Monocytes % (Manual) Eosinophils % (Manual) Basophils % (Manual) Nucleated RBC % Seg Neutrophils # Seg Neutrophils # Man Lymphocytes # (Manual) Monocytes # (Manual) Eosinophils # (Manual) Basophils # (Manual) PT INR Fibrinogen dRVVT Confirm Interp Factor V Activity POC ABG pH POC ABG pCO2 POC ABG pO2 ABG pO2 ABG HCO3 ABG Base Excess ABG Hemoglobin Oxyhemoglobin Sodium Potassium Chloride Carbon Dioxide BUN 83 H Creatinine 1.8 H Glucose POC Glucose 119 H 110 H Lactic Acid Calcium 10.7 H Phosphorus Magnesium Direct Bilirubin AST ALT Alkaline Phosphatase Lactate Dehydrogenase Troponin T C-Reactive Protein Total Protein Albumin Prealbumin Triglycerides Cholesterol LDL Cholesterol Direct HDL Cholesterol PTH Intact Urine pH Urine WBC (Auto) Urine Creatinine Urine Total Protein Fluid Total Protein Vancomycin Trough Rheumatoid Factor Complement C4 Miscellaneous Test Crossmatch 02/05/17 02/05/17 09:59 11:47 WBC RBC 2.69 L Hgb 7.2 L Hct 22.5 L MCV MCH 27 L MCHC RDW 18.6 H Plt Count Lymph % (Auto) [place] % (Auto) 9.2 H Lymph # [place] # 0.9 H Baso # Seg Neutrophils % Seg Neuts % (Manual) Lymphocytes % (Manual) Monocytes % (Manual) Eosinophils % (Manual) Basophils % (Manual) Nucleated RBC % Seg Neutrophils # Seg Neutrophils # Man Lymphocytes # (Manual) Monocytes # (Manual) Eosinophils # (Manual) Basophils # (Manual) PT INR Fibrinogen dRVVT Confirm Interp Factor V Activity POC ABG pH POC ABG pCO2 POC ABG pO2 ABG pO2 ABG HCO3 ABG Base Excess ABG Hemoglobin Oxyhemoglobin Sodium Potassium Chloride Carbon Dioxide BUN Creatinine Glucose POC Glucose 130 H Lactic Acid Calcium Phosphorus Magnesium Direct Bilirubin AST ALT Alkaline Phosphatase Lactate Dehydrogenase Troponin T C-Reactive Protein Total Protein Albumin Prealbumin Triglycerides Cholesterol LDL Cholesterol Direct HDL Cholesterol PTH Intact Urine pH Urine WBC (Auto) Urine Creatinine Urine Total Protein Fluid Total Protein Vancomycin Trough Rheumatoid Factor Complement C4 Miscellaneous Test Crossmatch Allied health notes reviewed: RT (Has been on PS 04/07, no desaturations today)
--- NOTE | 2017-02-05 17:41 | Progress Note ---
Assessment and Plan Assessment and plan: -- Paroxysmal atrial fibrillation with RVR, failed cardioversion Intermittent rapid ventricular rate, continue beta blockers, not a candidate for anticoagulation -- Multiple episodes of sepsis with septic shock during her hospitalization s/p aspiration pneumonia/peritonitis from gastric perforation/UTI/candidemia/ decubitus ulcer s/p sacral decubitus debridement, Right pleural effusion - scheduled for chest ultrasound for possible thoracentesis Currently on meropenem with stop date 02/04 -- Massive stroke with mass effect, Continue supportive care -- Acute hypoxic respiratory failure, s/p tracheostomy vent dependent --Pleural effusion ; possible thoracentesis by IR to improve respiratory status -- Acute renal failure/ ATN, improved significantly, creatinine near normal limits -- Diabetes, Accu-Cheks and SSI -- Anemia, Multifactorial, status post multiple PRBC transfusions -- Thrombocytopenia/secondary to sepsis -- Electrolyte abnormalities, correct as needed -- Severe protein calorie malnutrition, TPN -- Encephalopathy, Toxic metabolic initially, underlying conditions treated -- full code, poor prognosis Family aware of patient's condition and poor prognosis Discharge planning; possible placement, social issues History Interval history: Patient seen and examined medical records reviewed Clinically no change Vital signs reviewed Hospitalist Physical - Constitutional Vitals: Temp Pulse Resp BP Pulse Ox 98.8 F 115 H 28 H 177/103 100 02/05/17 12:00 02/05/17 17:10 02/05/17 17:10 02/05/17 17:10 02/05/17 17:10 General appearance: Present: no acute distress, well-nourished, other ( tracheostomy on vent) - EENT Eyes: Present: PERRL, EOM intact - Neck Neck: Present: supple, normal ROM - Respiratory Respiratory effort: normal Respiratory: bilateral: diminished, rhonchi, negative: rales, wheezing - Cardiovascular Rhythm: regular Heart Sounds: Present: S1 & S2 (tachycardia) - Extremities Extremities: no ischemia Extremity abnormal: edema - Abdominal General gastrointestinal: soft, non-tender, non-distended, normal bowel sounds, other (PEG in place) - Integumentary Integumentary: Present: clear, warm - Psychiatric Psychiatric: other (noncommunicative) - Neurologic Neurologic: other (noncommunicative) Results - Labs CBC & Chem 7: 02/05/17 09:59 02/05/17 04:00 Labs: Laboratory Last Values WBC 10.2 K/mm3 (4.5-11.0) 02/05/17 09:59 RBC 2.69 M/mm3 (3.65-5.03) L 02/05/17 09:59 Hgb 7.2 gm/dl (10.1-14.3) L 02/05/17 09:59 Hct 22.5 % (30.3-42.9) L 02/05/17 09:59 MCV 84 fl (79-97) 02/05/17 09:59 MCH 27 pg (28-32) L 02/05/17 09:59 MCHC 32 % (30-34) 02/05/17 09:59 RDW 18.6 % (13.2-15.2) H 02/05/17 09:59 Plt Count 272 K/mm3 (140-440) 02/05/17 09:59 Lymph % (Auto) 19.3 % (13.4-35.0) 02/05/17 09:59 Clarke % (Auto) 9.2 % (0.0-7.3) H 02/05/17 09:59 Eos % (Auto) 1.8 % (0.0-4.3) 02/05/17 09:59 Baso % (Auto) 0.5 % (0.0-1.8) 02/05/17 09:59 Lymph # 2.0 K/mm3 (1.2-5.4) 02/05/17 09:59 Clarke # 0.9 K/mm3 (0.0-0.8) H 02/05/17 09:59 Eos # 0.2 K/mm3 (0.0-0.4) 02/05/17 09:59 Baso # 0.0 K/mm3 (0.0-0.1) 02/05/17 09:59 Add Manual Diff Complete 12/19/16 05:02 Total Counted 100 12/19/16 05:02 Seg Neutrophils % 69.2 % (40.0-70.0) 02/05/17 09:59 Seg Neuts % (Manual) 64.0 % (40.0-70.0) 12/19/16 05:02 Band Neutrophils % 15.0 % 12/19/16 05:02 Lymphocytes % (Manual) 13.0 % (13.4-35.0) L 12/19/16 05:02 Reactive Lymphs % (Man) 0 % 12/19/16 05:02 Monocytes % (Manual) 7.0 % (0.0-7.3) 12/19/16 05:02 Eosinophils % (Manual) 0 % (0.0-4.3) 12/19/16 05:02 Basophils % (Manual) 1.0 % (0.0-1.8) 12/19/16 05:02 Metamyelocytes % 0 % 12/19/16 05:02 Myelocytes % 0 % 12/19/16 05:02 Promyelocytes % 0 % 12/19/16 05:02 Blast Cells % 0 % 12/19/16 05:02 Nucleated RBC % 1.0 % (0.0-0.9) H 12/19/16 05:02 Seg Neutrophils # 7.1 K/mm3 (1.8-7.7) 02/05/17 09:59 Seg Neutrophils # Man 12.9 K/mm3 (1.8-7.7) H 12/19/16 05:02 Band Neutrophils # 3.0 K/mm3 12/19/16 05:02 Lymphocytes # (Manual) 2.6 K/mm3 (1.2-5.4) 12/19/16 05:02 Abs React Lymphs (Man) 0.0 K/mm3 12/19/16 05:02 Monocytes # (Manual) 1.4 K/mm3 (0.0-0.8) H 12/19/16 05:02 Eosinophils # (Manual) 0.0 K/mm3 (0.0-0.4) 12/19/16 05:02 Basophils # (Manual) 0.2 K/mm3 (0.0-0.1) H 12/19/16 05:02 Metamyelocytes # 0.0 K/mm3 12/19/16 05:02 Myelocytes # 0.0 K/mm3 12/19/16 05:02 Promyelocytes # 0.0 K/mm3 12/19/16 05:02 Blast Cells # 0.0 K/mm3 12/19/16 05:02 Pathologist Review 09/13/16 04:00 WBC Morphology Not Reportable 12/19/16 05:02 Hypersegmented Neuts Not Reportable 12/19/16 05:02 Hyposegmented Neuts Not Reportable 12/19/16 05:02 Hypogranular Neuts Not Reportable 12/19/16 05:02 Smudge Cells Not Reportable 12/19/16 05:02 Toxic Granulation Not Reportable 12/19/16 05:02 Toxic Vacuolation Not Reportable 12/19/16 05:02 Dohle Bodies Not Reportable 12/19/16 05:02 Pelger-Huet Anomaly Not Reportable 12/19/16 05:02 Jasmina Rods Not Reportable 12/19/16 05:02 Platelet Estimate Consistent w auto 12/19/16 05:02 Clumped Platelets Not Reportable 12/19/16 05:02 Plt Clumps, EDTA Not Reportable 12/19/16 05:02 Large Platelets Not Reportable 12/19/16 05:02 Giant Platelets Not Reportable 12/19/16 05:02 Platelet Satelliting Not Reportable 12/19/16 05:02 Plt Morphology Comment Not Reportable 12/19/16 05:02 RBC Morphology Not Reportable 12/19/16 05:02 Dimorphic RBCs Not Reportable 12/19/16 05:02 Polychromasia Not Reportable 12/19/16 05:02 Hypochromasia Not Reportable 12/19/16 05:02 Poikilocytosis Not Reportable 12/19/16 05:02 Anisocytosis Not Reportable 12/19/16 05:02 Microcytosis Not Reportable 12/19/16 05:02 Macrocytosis Not Reportable 12/19/16 05:02 Spherocytes Not Reportable 12/19/16 05:02 Pappenheimer Bodies Not Reportable 12/19/16 05:02 Sickle Cells Not Reportable 12/19/16 05:02 Target Cells Few 12/19/16 05:02 Tear Drop Cells Not Reportable 12/19/16 05:02 Ovalocytes Not Reportable 12/19/16 05:02 Stomatocytes Rare 12/03/16 04:00 Helmet Cells Not Reportable 12/19/16 05:02 [place] Bodies Not Reportable 12/19/16 05:02 Scammon Rings Not Reportable 12/19/16 05:02 [place] Cells Not Reportable 12/19/16 05:02 Bite Cells Not Reportable 12/19/16 05:02 Crenated Cell Not Reportable 12/19/16 05:02 Elliptocytes Not Reportable 12/19/16 05:02 Acanthocytes (Spur) Not Reportable 12/19/16 05:02 Rouleaux Not Reportable 12/19/16 05:02 Hemoglobin C Crystals Not Reportable 12/19/16 05:02 Schistocytes Not Reportable 12/19/16 05:02 Malaria parasites Not Reportable 12/19/16 05:02 ESR > 140.0 mm/Hr (0-20) 09/08/16 11:48 Jun Bodies Not Reportable 12/19/16 05:02 Hem Pathologist Commnt No 12/19/16 05:02 PT 15.4 Sec. (12.2-14.9) H 01/13/17 15:50 INR 1.16 (0.87-1.13) H 01/13/17 15:50 APTT 33.0 Sec. (24.2-36.6) 10/09/16 03:45 Thrombin Time 16.8 Sec. (15.1-19.6) 09/03/16 00:10 Fibrinogen 750 mg/dl (211-480) H 09/08/16 11:48 Lupus Anticoagulant see below 09/12/16 09:59 LA PTT Baseline See scanned report 09/12/16 09:59 dRVVT Confirm Interp Positive (Negative) H 09/12/16 09:59 dRVVT Screen 50:50 See scanned report 09/12/16 09:59 dRVVT Mix Interpret See scanned report 09/12/16 09:59 Protein C Antigen 122 % (70-140) 09/08/16 15:35 Free Protein S 97 % normal (50-147) 09/08/16 15:35 Total Protein S 109 % (70-140) 09/08/16 15:35 Antithrombin III Ag 100 % (80-120) 09/08/16 15:35 Heparin Anti-Xa, Unfract Negative (Negative) 09/29/16 13:35 Factor V Activity 182 % (65-150) H 09/08/16 15:35 POC ABG pH 7.436 (7.35-7.45) 01/20/17 12:17 ABG pH 7.450 pH Units (7.350-7.450) 12/05/16 Unknown POC ABG pCO2 35.3 (35-45) 01/20/17 12: ABG pCO2 29.6 mm Hg 12/05/16 Unknown POC ABG pO2 70 (80-105) L 01/20/17 12: ABG pO2 75.2 mm Hg (80.0-90.0) L 12/05/16 Unknown POC ABG HCO3 23.8 01/20/17 12: ABG HCO3 20.1 mmol/L (20.0-26.0) 12/05/16 Unknown POC ABG Total CO2 25 01/20/17 12: POC ABG O2 Sat 94 01/20/17 12: ABG O2 Saturation 96.8 % (95.0-99.0) 12/05/16 Unknown ABG O2 Content 9.9 (0.0-44) 12/05/16 Unknown POC ABG Base Excess 0 01/20/17 12: ABG Base Excess -3.4 mmol/L (-2.0-3.0) L 12/05/16 Unknown ABG Hemoglobin 7.4 gm/dl (12.0-16.0) L 12/05/16 Unknown ABG Carboxyhemoglobin 1.8 % (0.0-5.0) 12/05/16 Unknown ABG Methemoglobin 0.6 % (0.0-1.5) 12/05/16 Unknown Oxyhemoglobin 94.5 % (95.0-99.0) L 12/05/16 Unknown FiO2 30 % 01/20/17 12:17 Sodium 137 mmol/L (137-145) 02/05/17 04:00 Potassium 4.0 mmol/L (3.6-5.0) 02/05/17 04:00 Chloride 101.1 mmol/L (98-107) 02/05/17 04:00 Carbon Dioxide 24 mmol/L (22-30) 02/05/17 04:00 Anion Gap 16 mmol/L 02/05/17 04:00 BUN 83 mg/dL (7-17) H 02/05/17 04:00 Creatinine 1.8 mg/dL (0.7-1.2) H 02/05/17 04:00 Estimated GFR 37 ml/min 02/05/17 04:00 BUN/Creatinine Ratio 46 % 02/05/17 04:00 Glucose 92 mg/dL (65-100) 02/05/17 04:00 POC Glucose 130 (70-105) H 02/05/17 11:47 Osmolality 351 Mosm/kg 09/16/16 11:47 Lactic Acid 2.30 mmol/L (0.7-2.0) H* 01/09/17 08:22 Calcium 10.7 mg/dL (8.4-10.2) H 02/05/17 04:00 Phosphorus 2.90 mg/dL (2.5-4.5) D 02/05/17 04:00 Magnesium 1.80 mg/dL (1.7-2.3) 02/05/17 04:00 Total Bilirubin 0.50 mg/dL (0.1-1.2) 01/28/17 04:00 Direct Bilirubin 0.2 mg/dL (0-0.2) 01/28/17 04:00 Indirect Bilirubin 0.3 mg/dL 01/28/17 04:00 AST 14 units/L (5-40) 01/28/17 04:00 ALT 9 units/L (7-56) 01/28/17 04:00 Alkaline Phosphatase 113 units/L (35-129) 01/28/17 04:00 Ammonia 27.0 umol/L (25-60) 09/07/16 08:37 Lactate Dehydrogenase 170 units/L (91-180) 01/13/17 15:50 Total Creatine Kinase 121 units/L (30-135) 09/29/16 20:12 CK-MB (CK-2) < 1.0 ng/mL (0.0-4.0) 09/29/16 20:12 CK-MB (CK-2) Rel Index 0.8 (0-4) 09/29/16 20:12 Troponin T 0.204 ng/mL (0.00-0.029) H* 09/29/16 20:12 C-Reactive Protein 8.10 mg/dL (0.00-1.30) H 01/31/17 11:12 Total Protein 6.3 g/dL (6.3-8.2) 01/28/17 04:00 Albumin 1.4 g/dL (3.9-5) L 01/28/17 04:00 Albumin/Globulin Ratio 0.3 % 01/28/17 04:00 Prealbumin 0.110 g/L (0.200-0.400) L 12/29/16 05:15 Triglycerides 137 mg/dL (2-149) 09/29/16 20:12 Cholesterol 31 mg/dL (50-199) L 09/29/16 20:12 LDL Cholesterol Direct 4 mg/dL (50-130) L 09/29/16 20:12 HDL Cholesterol 3 mg/dL (40-59) L 09/29/16 20:12 Cholesterol/HDL Ratio 10.33 % 09/29/16 20:12 Angiotensin Convert Enz See scanned report 09/08/16 11:48 Renin 0.99 ng/mL/h (0.25-5.82) 10/07/16 10:56 Aldosterone <1 ng/dL () 10/07/16 10:56 Aldosterone/Renin Dir see below 10/07/16 10:56 Serotonin Release Assay See scanned report 09/29/16 13:35 TSH 1.010 mlU/mL (0.270-4.200) 09/07/16 08:37 HCG, Qual Negative (Negative) 09/03/16 00:10 PTH Intact 6.76 pg/mL (15-65) L 01/31/17 17:50 Urine Color Yellow (Yellow) 11/05/16 13:09 Urine Turbidity Clear (Clear) 11/05/16 13:09 Urine pH 9.0 (5.0-7.0) H 11/05/16 13:09 Ur Specific [place] 1.011 (1.003-1.030) 11/05/16 13:09 Urine Protein 100 mg/dl mg/dL (Negative) 11/05/16 13:09 Urine Glucose (UA) Neg mg/dL (Negative) 11/05/16 13:09 Urine Ketones Neg mg/dL (Negative) 11/05/16 13:09 Urine Blood Neg (Negative) 11/05/16 13:09 Urine Nitrite Neg (Negative) 11/05/16 13:09 Urine Bilirubin Neg (Negative) 11/05/16 13:09 Urine Urobilinogen < 2.0 mg/dL (<2.0) 11/05/16 13:09 Ur Leukocyte Esterase Neg (Negative) 11/05/16 13:09 Urine WBC (Auto) 4.0 /HPF (0.0-6.0) 11/05/16 13:09 Urine RBC (Auto) 1.0 /HPF (0.0-6.0) 11/05/16 13:09 U Epithel Cells (Auto) 1.0 /HPF (0-13.0) 10/07/16 18:30 Urine Bacteria (Auto) 4+ /HPF (Negative) 11/05/16 13:09 Urine WBC Clumps 2+ /HPF 09/07/16 02:47 Hyaline Casts 4 /LPF 09/07/16 02:47 Urine Mucus Few /HPF 10/07/16 18:30 Urine Yeast (Budding) 3+ /HPF 10/07/16 18:30 Urine Eosinophils None seen (None Seen) 09/07/16 16:00 Urine Total Volume 950 11/12/16 10:18 Urine Creatinine 19.7 mg/dL (0.1-20.0) 11/12/16 10:18 Height (in) 65.0 inches 11/12/16 10:18 Weight (lb) 181.0 lbs 11/12/16 10:18 Creatinine Clearance 5 11/12/16 10:18 Urine Sodium 36 mEq/L 09/16/16 19:19 Urine Total Protein 16 mg/dL (5-11.8) H 09/16/16 19:19 Fluid Type Pleural 01/13/17 12:10 Fluid Color Yellow 01/13/17 12:10 Fluid Appearance Hazy 01/13/17 12:10 Fluid WBC 182 /mm3 01/13/17 12:10 Fluid RBC 41 /mm3 01/13/17 12:10 Fluid Seg Neutrophils 85.0 % 01/13/17 12:10 Fluid Lymphocytes 8.0 % 01/13/17 12:10 Fluid Reactive Lymphs 0 % 01/13/17 12:10 Fluid Monocytes 6.0 % 01/13/17 12:10 Fluid Eosinophils 1.0 % 01/13/17 12:10 Fluid Basophils 0 % 01/13/17 12:10 Fluid Total Protein 3.0 (15.0-45.0) L 01/13/17 12:10 Fluid LDH 1322 01/13/17 12:10 Fluid Comment Diff performed 01/13/17 12:10 Vancomycin Trough 2.3 ug/mL (5.0-20.0) L 09/21/16 13:00 Random Vancomycin 16.5 ug/mL (0-40.0) 11/28/16 09:45 Urine Opiates Screen Presumptive negative 09/03/16 15:11 Urine Methadone Screen Presumptive positive 09/03/16 15:11 Ur Barbiturates Screen Presumptive positive 09/03/16 15:11 Ur Phencyclidine Scrn Presumptive negative 09/03/16 15:11 Ur Amphetamines Screen Presumptive negative 09/03/16 15:11 U Benzodiazepines Scrn Presumptive negative 09/03/16 15:11 Urine Cocaine Screen Presumptive negative 09/03/16 15:11 U Marijuana (THC) Screen Presumptive positive 09/03/16 15:11 Drugs of Abuse Note Disclamer 09/03/16 15:11 Rheumatoid Factor 24 IU/ml (0-13) H 09/08/16 11:48 SAHIL Screen Negative (Negative) 09/07/16 09:20 Proteinase 3 (PR3) Ab <1.0 AI (<1.0) 09/07/16 09:20 Myeloperoxidase Ab <1.0 AI (<1.0) 09/07/16 09:20 Sjogren's Antibody <1.0 AI (<1.0) 09/08/16 15:35 Scl-70 Scleroderma Ab <1.0 AI (<1.0) 09/08/16 15:35 Centromere B Antibody <1.0 AI (<1.0) 09/08/16 12:02 Heparin-induced Plt Ab Negative (Negative) 09/29/16 13:35 UF Heparin High Dose 11 % Release 09/29/16 13:35 SUDHIR UFH Low Dose 0.1 6 % Release 09/29/16 13:35 SUDHIR UFH Low Dose 0.5 8 % Release 09/29/16 13:35 Cardiolipid IgG Ab <14 GPL (<=14) 09/12/16 09:59 Cardiolipid IgA Ab <11 APL (<=11) 09/12/16 09:59 Cardiolipid IgM Ab <12 MPL (<=12) 09/12/16 09:59 Complement C3 148 mg/dL (90-180) 09/07/16 09:20 Complement C4 58 mg/dL (16-47) H 09/07/16 09:20 RPR Nonreactive (Nonreactive) 09/08/16 11:48 Hepatitis A IgM Ab Non-reactive (NonReactive) 09/24/16 14:40 Hep Bs Antigen Non-reactive (Negative) 09/24/16 14:40 Hep B Core IgM Ab Non-reactive (NonReactive) 09/24/16 14:40 Hepatitis C Antibody Non-reactive (NonReactive) 09/24/16 14:40 HIV 1&2 Antibody Rapid Non react (Non React) 09/08/16 11:48 HIV P24 Antigen Non react (Non React) 09/08/16 11:48 Miscellaneous Test Flexitest 1 H 01/09/17 18:45 Blood Type A POSITIVE 01/25/17 11:15 Antibody Screen Negative 01/25/17 11:15 DELORIS Antibody Screen Negative 11/24/16 11:20 Crossmatch See Detail 01/25/17 11:15
[2017-02-05] MEDS ORDERED: TPN ADULT IV SCH (20:00)
[2017-02-05] MEDS: NORMODYNE IV PRN (22:22)
[2017-02-06] MEDS: DUONEB *Not for PRN Use IH SCH ×4 (02:01→20:06)
[2017-02-06] MEDS: HumuLIN R SUB-Q SCH ×3 (02:16→17:49)
[2017-02-06] MEDS: REGLAN IV SCH ×2 (05:51→13:02)
[2017-02-06] MEDS: NORMODYNE IV PRN (05:52)
[2017-02-06 07:01] LABS: Albumin 1.4 g/dL (3.9-5); Calcium 10.6 mg/dL (8.4-10.2)
[2017-02-06] MEDS ORDERED: VERSED IV ONE (09:18)
[2017-02-06] MEDS ORDERED: SUBLIMAZE ONE (09:19)
--- NOTE | 2017-02-06 09:31 | Progress Note ---
Assessment and Plan - Patient Problems (1) JUANITA (acute kidney injury) Current Visit: Yes Status: Acute Plan to address problem: JUANITA with multiple medical problems-Dialysis dependent. Acute on chronic respiratory failure-ventilator dependent. Sepsis-ID notes reviewed. Multiple comorbid conditions-Suggest supportive care .S/P surgical debridement for sacral decubitus. Encephalopathy-same. HD with UF as ordered (2) Acute CVA (cerebrovascular accident) Current Visit: Yes Status: Acute (3) Acute respiratory failure with hypoxia Current Visit: Yes Status: Acute (4) Atrial fibrillation Current Visit: Yes Status: Chronic (5) Type 2 diabetes mellitus Current Visit: Yes Status: Chronic (6) Anemia Current Visit: No Status: Acute Qualifiers: Anemia type: unspecified type Qualified Code(s): D64.9 - Anemia, unspecified (7) HTN (hypertension) Current Visit: Yes Status: Chronic (8) Diabetes Current Visit: Yes Status: Chronic Qualifiers: Diabetes mellitus type: type 2 Diabetes mellitus complication status: with hyperglycemia Subjective Date of service: 02/06/17 Principal diagnosis: Acute resp failure on MVS; S/P Acute CVA; Acute Encephalopathy; JUANITA Interval history: chart was reviewed, discussed with pt's nurse. on ventilator via trach. Fio2-30% . Pt remains non communicative. Had CT scan of chest and thoracentesis today- only 5 ml taken out Objective - Vital Signs Vital signs: Vital Signs - 12hr 02/05/17 02/05/17 02/05/17 22:00 22:22 22:30 Temperature Pulse Rate 96 H 96 H 86 Pulse Rate [ Anterior Bilateral Throughout] Pulse Rate [ Apical] Respiratory 29 H 28 H Rate Respiratory Rate [Anterior Bilateral Throughout] Blood Pressure 186/108 182/116 166/95 O2 Sat by Pulse 100 100 Oximetry O2 Sat by Pulse Oximetry [ Assessment] 02/05/17 02/05/17 02/05/17 22:54 23:00 23:30 Temperature Pulse Rate 82 80 94 H Pulse Rate [ Anterior Bilateral Throughout] Pulse Rate [ Apical] Respiratory 27 H 23 27 H Rate Respiratory Rate [Anterior Bilateral Throughout] Blood Pressure 146/82 133/89 171/110 O2 Sat by Pulse 100 100 100 Oximetry O2 Sat by Pulse Oximetry [ Assessment] 02/05/17 02/05/17 02/05/17 23:43 23:47 23:58 Temperature 99.1 F Pulse Rate 94 H Pulse Rate [ Anterior Bilateral Throughout] Pulse Rate [ Apical] Respiratory 24 Rate Respiratory Rate [Anterior Bilateral Throughout] Blood Pressure 171/110 O2 Sat by Pulse 100 Oximetry O2 Sat by Pulse 100 Oximetry [ Assessment] 02/06/17 02/06/17 02/06/17 00:00 00:30 01:00 Temperature Pulse Rate 98 H 83 88 Pulse Rate [ Anterior Bilateral Throughout] Pulse Rate [ 90 Apical] Respiratory 27 H 29 H 18 Rate Respiratory Rate [Anterior Bilateral Throughout] Blood Pressure 180/114 149/96 168/118 O2 Sat by Pulse 100 100 100 Oximetry O2 Sat by Pulse Oximetry [ Assessment] 02/06/17 02/06/17 02/06/17 01:30 02:00 02:10 Temperature Pulse Rate 84 86 Pulse Rate [ 86 84 Anterior Bilateral Throughout] Pulse Rate [ Apical] Respiratory 18 17 Rate Respiratory 17 16 Rate [Anterior Bilateral Throughout] Blood Pressure 166/102 180/108 O2 Sat by Pulse 100 100 Oximetry O2 Sat by Pulse Oximetry [ Assessment] 02/06/17 02/06/17 02/06/17 02:30 03:00 03:30 Temperature Pulse Rate 80 80 79 Pulse Rate [ Anterior Bilateral Throughout] Pulse Rate [ Apical] Respiratory 15 15 13 Rate Respiratory Rate [Anterior Bilateral Throughout] Blood Pressure 132/88 131/84 134/87 O2 Sat by Pulse 100 100 100 Oximetry O2 Sat by Pulse Oximetry [ Assessment] 02/06/17 02/06/17 02/06/17 04:00 04:30 05:00 Temperature Pulse Rate 74 84 80 Pulse Rate [ Anterior Bilateral Throughout] Pulse Rate [ 83 Apical] Respiratory 16 17 21 Rate Respiratory Rate [Anterior Bilateral Throughout] Blood Pressure 150/88 168/102 159/96 O2 Sat by Pulse 100 100 100 Oximetry O2 Sat by Pulse Oximetry [ Assessment] 02/06/17 02/06/17 02/06/17 05:30 05:52 06:00 Temperature Pulse Rate 86 83 80 Pulse Rate [ Anterior Bilateral Throughout] Pulse Rate [ Apical] Respiratory 16 16 Rate Respiratory Rate [Anterior Bilateral Throughout] Blood Pressure 161/95 161/95 159/94 O2 Sat by Pulse 100 100 Oximetry O2 Sat by Pulse Oximetry [ Assessment] 02/06/17 02/06/17 02/06/17 06:30 07:00 07:30 Temperature Pulse Rate 83 83 87 Pulse Rate [ Anterior Bilateral Throughout] Pulse Rate [ Apical] Respiratory 16 18 18 Rate Respiratory Rate [Anterior Bilateral Throughout] Blood Pressure 166/94 154/95 168/95 O2 Sat by Pulse 100 100 100 Oximetry O2 Sat by Pulse Oximetry [ Assessment] 02/06/17 02/06/17 02/06/17 08:00 08:57 09:13 Temperature 98.6 F Pulse Rate 88 90 Pulse Rate [ 88 86 Anterior Bilateral Throughout] Pulse Rate [ Apical] Respiratory Rate Respiratory 19 28 H Rate [Anterior Bilateral Throughout] Blood Pressure 184/103 164/98 O2 Sat by Pulse 100 99 Oximetry O2 Sat by Pulse 100 Oximetry [ Assessment] - General Appearance General appearance: chronically ill, other (on ventilator) EENT: mucous membranes dry Respiratory: Present: Decreased Breath Sounds Cardiology: irregular Gastrointestinal: normoactive bowel sounds Neurologic: other (non communicative) - Lab 02/05/17 09:59 02/06/17 04:45 Most recent lab results ABG pH 7.450 pH Units (7.350-7.450) 12/05/16 Unknown ABG pCO2 29.6 mm Hg 12/05/16 Unknown ABG pO2 75.2 mm Hg (80.0-90.0) L 12/05/16 Unknown ABG HCO3 20.1 mmol/L (20.0-26.0) 12/05/16 Unknown ABG O2 Saturation 96.8 % (95.0-99.0) 12/05/16 Unknown Calcium 10.6 mg/dL (8.4-10.2) H 02/06/17 04:45 Phosphorus 4.20 mg/dL (2.5-4.5) D 02/06/17 04:45 Magnesium 1.80 mg/dL (1.7-2.3) 02/06/17 04:45 Urine Creatinine 19.7 mg/dL (0.1-20.0) 11/12/16 10:18 Urine Sodium 36 mEq/L 09/16/16 19:19 Urine Total Protein 16 mg/dL (5-11.8) H 09/16/16 19:19
--- NOTE | 2017-02-06 10:15 | Progress Note ---
Assessment and Plan Acute Hypoxemic Respiratory Failure (now with exacerbation and back on MVS) Hypertension (unable to receive p.o. meds) Atrial Fibrillation with RVR s/p tracheostomy Acute encephalopathy s/p CVA Oropharyngeal dysphagia Enterococcal bacteremia sepsis syndrome Sacral Decubitus Ulcer (s/p surgical debridement) Anemia Obesity JUANITA now on hemodialysis Enteric Fistula - continue to hold tube feeds due to persistent emesis; continue reglan at 10mg IV q8h - IR consulted for G-J tube (not a good candidate for G-J Tube per IR) - follow pleural fluid cultures; unfortunately not a good vcandidate for a VATS procedure - appreciate surgery input - continue fentanyl patch for pain issues especially s/p debridement - continue wound care per WCT and RN's (she is s/p surgical debridement) - continue anti-infectives per ID recs - prn CRP & lactate levels if clinically indicated (Follow WBC also) - keep on with daily PSV trials and / or T-piece as tolerated - continue TPN administration - continue scopolamine for secretion control - continue to wean FiO2 for sats > 94% - continue bronchodilators and pulmonary toilet - VAP bundle addressed - continue prn IV metorolol (5mg IV q6h) - continue metoprolol and amlodipine (hold for hypotension) - continue to follow electrolytes and correct as necessary - continue GI & VTE prophylaxis - Continue flu & pneumovax per protocol - ethics consult placed and pending .....she remains critically ill on life sustaining interventions including MVS and at risk for further deterioration including ....35' CCT today without overlap ....care plan discussed at length during team rounds ...nursing home prognosis remains guarded and this has intermittently been conveyed to family Subjective Date of service: 02/06/17 Principal diagnosis: Acute resp failure on MVS; S/P Acute CVA; Acute Encephalopathy; JUANITA Interval history: Patient is seen today for: Acute resp failure on MVS; S/P Acute CVA; Acute Encephalopathy; JUANITA Seen and examined at bedside; 24hour events reviewed; nursing and respiratory care staff consulted; no adverse overnight events reported to me; unable to place chest pig-tail catheter due to loculations; minimal fluid drained and sent to lab; otherwise still a difficult wean Objective Vital Signs - 12hr 02/05/17 02/05/17 02/05/17 22:22 22:30 22:54 Temperature Pulse Rate 96 H 86 82 Pulse Rate [ Anterior Bilateral Throughout] Pulse Rate [ Apical] Pulse Rate [ Intra-Procedure ] Pulse Rate [Pre -Procedure] Respiratory 28 H 27 H Rate Respiratory Rate [Anterior Bilateral Throughout] Respiratory Rate [Intra- Procedure] Respiratory Rate [Pre- Procedure] Blood Pressure 182/116 166/95 146/82 Blood Pressure [Intra- Procedure] Blood Pressure [Pre-Procedure] O2 Sat by Pulse 100 100 Oximetry O2 Sat by Pulse Oximetry [ Assessment] O2 Sat by Pulse Oximetry [ Intra-Procedure ] O2 Sat by Pulse Oximetry [Pre- Procedure] 02/05/17 02/05/17 02/05/17 23:00 23:30 23:43 Temperature Pulse Rate 80 94 H 94 H Pulse Rate [ Anterior Bilateral Throughout] Pulse Rate [ Apical] Pulse Rate [ Intra-Procedure ] Pulse Rate [Pre -Procedure] Respiratory 23 27 H 24 Rate Respiratory Rate [Anterior Bilateral Throughout] Respiratory Rate [Intra- Procedure] Respiratory Rate [Pre- Procedure] Blood Pressure 133/89 171/110 171/110 Blood Pressure [Intra- Procedure] Blood Pressure [Pre-Procedure] O2 Sat by Pulse 100 100 100 Oximetry O2 Sat by Pulse Oximetry [ Assessment] O2 Sat by Pulse Oximetry [ Intra-Procedure ] O2 Sat by Pulse Oximetry [Pre- Procedure] 02/05/17 02/05/17 02/06/17 23:47 23:58 00:00 Temperature 99.1 F Pulse Rate 98 H Pulse Rate [ Anterior Bilateral Throughout] Pulse Rate [ 90 Apical] Pulse Rate [ Intra-Procedure ] Pulse Rate [Pre -Procedure] Respiratory 27 H Rate Respiratory Rate [Anterior Bilateral Throughout] Respiratory Rate [Intra- Procedure] Respiratory Rate [Pre- Procedure] Blood Pressure 180/114 Blood Pressure [Intra- Procedure] Blood Pressure [Pre-Procedure] O2 Sat by Pulse 100 Oximetry O2 Sat by Pulse 100 Oximetry [ Assessment] O2 Sat by Pulse Oximetry [ Intra-Procedure ] O2 Sat by Pulse Oximetry [Pre- Procedure] 02/06/17 02/06/17 02/06/17 00:30 01:00 01:30 Temperature Pulse Rate 83 88 84 Pulse Rate [ Anterior Bilateral Throughout] Pulse Rate [ Apical] Pulse Rate [ Intra-Procedure ] Pulse Rate [Pre -Procedure] Respiratory 29 H 18 18 Rate Respiratory Rate [Anterior Bilateral Throughout] Respiratory Rate [Intra- Procedure] Respiratory Rate [Pre- Procedure] Blood Pressure 149/96 168/118 166/102 Blood Pressure [Intra- Procedure] Blood Pressure [Pre-Procedure] O2 Sat by Pulse 100 100 100 Oximetry O2 Sat by Pulse Oximetry [ Assessment] O2 Sat by Pulse Oximetry [ Intra-Procedure ] O2 Sat by Pulse Oximetry [Pre- Procedure] 02/06/17 02/06/17 02/06/17 02:00 02:10 02:30 Temperature Pulse Rate 86 80 Pulse Rate [ 86 84 Anterior Bilateral Throughout] Pulse Rate [ Apical] Pulse Rate [ Intra-Procedure ] Pulse Rate [Pre -Procedure] Respiratory 17 15 Rate Respiratory 17 16 Rate [Anterior Bilateral Throughout] Respiratory Rate [Intra- Procedure] Respiratory Rate [Pre- Procedure] Blood Pressure 180/108 132/88 Blood Pressure [Intra- Procedure] Blood Pressure [Pre-Procedure] O2 Sat by Pulse 100 100 Oximetry O2 Sat by Pulse Oximetry [ Assessment] O2 Sat by Pulse Oximetry [ Intra-Procedure ] O2 Sat by Pulse Oximetry [Pre- Procedure] 02/06/17 02/06/17 02/06/17 03:00 03:30 04:00 Temperature Pulse Rate 80 79 74 Pulse Rate [ Anterior Bilateral Throughout] Pulse Rate [ 83 Apical] Pulse Rate [ Intra-Procedure ] Pulse Rate [Pre -Procedure] Respiratory 15 13 16 Rate Respiratory Rate [Anterior Bilateral Throughout] Respiratory Rate [Intra- Procedure] Respiratory Rate [Pre- Procedure] Blood Pressure 131/84 134/87 150/88 Blood Pressure [Intra- Procedure] Blood Pressure [Pre-Procedure] O2 Sat by Pulse 100 100 100 Oximetry O2 Sat by Pulse Oximetry [ Assessment] O2 Sat by Pulse Oximetry [ Intra-Procedure ] O2 Sat by Pulse Oximetry [Pre- Procedure] 02/06/17 02/06/17 02/06/17 04:30 05:00 05:30 Temperature Pulse Rate 84 80 86 Pulse Rate [ Anterior Bilateral Throughout] Pulse Rate [ Apical] Pulse Rate [ Intra-Procedure ] Pulse Rate [Pre -Procedure] Respiratory 17 21 16 Rate Respiratory Rate [Anterior Bilateral Throughout] Respiratory Rate [Intra- Procedure] Respiratory Rate [Pre- Procedure] Blood Pressure 168/102 159/96 161/95 Blood Pressure [Intra- Procedure] Blood Pressure [Pre-Procedure] O2 Sat by Pulse 100 100 100 Oximetry O2 Sat by Pulse Oximetry [ Assessment] O2 Sat by Pulse Oximetry [ Intra-Procedure ] O2 Sat by Pulse Oximetry [Pre- Procedure] 02/06/17 02/06/17 02/06/17 05:52 06:00 06:30 Temperature Pulse Rate 83 80 83 Pulse Rate [ Anterior Bilateral Throughout] Pulse Rate [ Apical] Pulse Rate [ Intra-Procedure ] Pulse Rate [Pre -Procedure] Respiratory 16 16 Rate Respiratory Rate [Anterior Bilateral Throughout] Respiratory Rate [Intra- Procedure] Respiratory Rate [Pre- Procedure] Blood Pressure 161/95 159/94 166/94 Blood Pressure [Intra- Procedure] Blood Pressure [Pre-Procedure] O2 Sat by Pulse 100 100 Oximetry O2 Sat by Pulse Oximetry [ Assessment] O2 Sat by Pulse Oximetry [ Intra-Procedure ] O2 Sat by Pulse Oximetry [Pre- Procedure] 02/06/17 02/06/17 02/06/17 07:00 07:30 08:00 Temperature 98.6 F Pulse Rate 83 87 Pulse Rate [ Anterior Bilateral Throughout] Pulse Rate [ Apical] Pulse Rate [ Intra-Procedure ] Pulse Rate [Pre -Procedure] Respiratory 18 18 Rate Respiratory Rate [Anterior Bilateral Throughout] Respiratory Rate [Intra- Procedure] Respiratory Rate [Pre- Procedure] Blood Pressure 154/95 168/95 Blood Pressure [Intra- Procedure] Blood Pressure [Pre-Procedure] O2 Sat by Pulse 100 100 Oximetry O2 Sat by Pulse Oximetry [ Assessment] O2 Sat by Pulse Oximetry [ Intra-Procedure ] O2 Sat by Pulse Oximetry [Pre- Procedure] 02/06/17 02/06/17 02/06/17 08:57 09:13 09:43 Temperature Pulse Rate 88 90 Pulse Rate [ 88 86 Anterior Bilateral Throughout] Pulse Rate [ Apical] Pulse Rate [ Intra-Procedure ] Pulse Rate [Pre 89 -Procedure] Respiratory Rate Respiratory 19 28 H Rate [Anterior Bilateral Throughout] Respiratory Rate [Intra- Procedure] Respiratory 27 H Rate [Pre- Procedure] Blood Pressure 184/103 164/98 Blood Pressure [Intra- Procedure] Blood Pressure 154/96 [Pre-Procedure] O2 Sat by Pulse 100 99 Oximetry O2 Sat by Pulse 100 Oximetry [ Assessment] O2 Sat by Pulse Oximetry [ Intra-Procedure ] O2 Sat by Pulse 100 Oximetry [Pre- Procedure] 02/06/17 02/06/17 09:50 10:00 Temperature Pulse Rate Pulse Rate [ Anterior Bilateral Throughout] Pulse Rate [ Apical] Pulse Rate [ 92 H Intra-Procedure ] Pulse Rate [Pre 93 H -Procedure] Respiratory Rate Respiratory Rate [Anterior Bilateral Throughout] Respiratory 28 H Rate [Intra- Procedure] Respiratory 31 H Rate [Pre- Procedure] Blood Pressure Blood Pressure 162/91 [Intra- Procedure] Blood Pressure 151/100 [Pre-Procedure] O2 Sat by Pulse Oximetry O2 Sat by Pulse Oximetry [ Assessment] O2 Sat by Pulse 100 Oximetry [ Intra-Procedure ] O2 Sat by Pulse 100 Oximetry [Pre- Procedure] Constitutional: appears uncomfortable, other (not tracking) Eyes: non-icteric, other (tracheostomy tube in midline of neck) ENT: oropharynx moist, oropharyngeal exudate pre Neck: supple, no lymphadenopathy, no JVD, other (no thyromegaly) Effort: mildly labored Ascultation: Bilateral: diminished breath sounds (bases R>L), rhonchi (and referred upper airway sounds) Percussion: Right: dull (base), Bilateral: not dull Cardiovascular: regular rate and rhythm, other (no rubs / murmurs) Gastrointestinal: hypoactive bowel sounds, soft, non-tender, non-distended, other (RLQ & LUQ stomas with colostomy bags) Integumentary: decubitus ulcer (sacral; stage 4 s/p surgical debridement), other (no rash; no cellulitis; poor turgor) Extremities: no cyanosis, pulses normal, no ischemia or petechiae, edema (1+ bilaterally) Neurologic: pupils equal and round, unable to assess, other (encephalopathic) Psychiatric: other (unable to assess) CBC and BMP: 02/05/17 09:59 02/06/17 04:45 ABG, PT/INR, D-dimer: ABG POC ABG pH 7.436 (7.35-7.45) 01/20/17 12:17 ABG pH 7.450 pH Units (7.350-7.450) 12/05/16 Unknown POC ABG pCO2 35.3 (35-45) 01/20/17 12: ABG pCO2 29.6 mm Hg 12/05/16 Unknown POC ABG pO2 70 (80-105) L 01/20/17 12:17 ABG pO2 75.2 mm Hg (80.0-90.0) L 12/05/16 Unknown POC ABG HCO3 23.8 01/20/17 12:17 POC ABG Total CO2 25 01/20/17 12:17 POC ABG O2 Sat 94 01/20/17 12:17 ABG O2 Saturation 96.8 % (95.0-99.0) 12/05/16 Unknown PT/INR, D-dimer PT 15.4 Sec. (12.2-14.9) H 01/13/17 15:50 INR 1.16 (0.87-1.13) H 01/13/17 15:50 Abnormal lab findings: Abnormal Labs 09/03/16 09/03/16 09/03/16 00:03 00:10 00:10 WBC 13.9 H RBC 5.95 H Hgb Hct 44.0 H MCV 74 L MCH 22 L MCHC RDW 17.5 H Plt Count Lymph % (Auto) [place] % (Auto) Lymph # [place] # Baso # Seg Neutrophils % Seg Neuts % (Manual) Lymphocytes % (Manual) 54.0 H Monocytes % (Manual) Eosinophils % (Manual) Basophils % (Manual) Nucleated RBC % Seg Neutrophils # Seg Neutrophils # Man Lymphocytes # (Manual) 7.5 H Monocytes # (Manual) Eosinophils # (Manual) Basophils # (Manual) PT INR Fibrinogen dRVVT Confirm Interp Factor V Activity POC ABG pH POC ABG pCO2 POC ABG pO2 ABG pO2 ABG HCO3 ABG Base Excess ABG Hemoglobin Oxyhemoglobin Sodium Potassium 2.8 L* Chloride Carbon Dioxide 21 L BUN Creatinine 1.7 H Glucose 159 H POC Glucose 177 H Lactic Acid Calcium Phosphorus Magnesium Direct Bilirubin AST ALT Alkaline Phosphatase Lactate Dehydrogenase Troponin T C-Reactive Protein Total Protein Albumin Prealbumin Triglycerides Cholesterol LDL Cholesterol Direct HDL Cholesterol PTH Intact Urine pH Urine WBC (Auto) Urine Creatinine Urine Total Protein Fluid Total Protein Vancomycin Trough Rheumatoid Factor Complement C4 Miscellaneous Test Crossmatch 09/03/16 09/03/16 09/03/16 12:12 15:07 16:20 WBC RBC Hgb Hct MCV MCH MCHC RDW Plt Count Lymph % (Auto) [place] % (Auto) Lymph # [place] # Baso # Seg Neutrophils % Seg Neuts % (Manual) Lymphocytes % (Manual) Monocytes % (Manual) Eosinophils % (Manual) Basophils % (Manual) Nucleated RBC % Seg Neutrophils # Seg Neutrophils # Man Lymphocytes # (Manual) Monocytes # (Manual) Eosinophils # (Manual) Basophils # (Manual) PT INR Fibrinogen dRVVT Confirm Interp Factor V Activity POC ABG pH 7.452 H POC ABG pCO2 POC ABG pO2 ABG pO2 ABG HCO3 ABG Base Excess ABG Hemoglobin Oxyhemoglobin Sodium Potassium Chloride Carbon Dioxide BUN Creatinine Glucose POC Glucose 178 H Lactic Acid Calcium Phosphorus 2.20 L Magnesium 1.60 L Direct Bilirubin AST ALT Alkaline Phosphatase Lactate Dehydrogenase Troponin T C-Reactive Protein Total Protein Albumin Prealbumin Triglycerides Cholesterol LDL Cholesterol Direct HDL Cholesterol PTH Intact Urine pH Urine WBC (Auto) Urine Creatinine Urine Total Protein Fluid Total Protein Vancomycin Trough Rheumatoid Factor Complement C4 Miscellaneous Test Crossmatch 09/03/16 09/03/16 09/03/16 17:57 17:58 23:50 WBC RBC Hgb Hct MCV MCH MCHC RDW Plt Count Lymph % (Auto) [place] % (Auto) Lymph # [place] # Baso # Seg Neutrophils % Seg Neuts % (Manual) Lymphocytes % (Manual) Monocytes % (Manual) Eosinophils % (Manual) Basophils % (Manual) Nucleated RBC % Seg Neutrophils # Seg Neutrophils # Man Lymphocytes # (Manual) Monocytes # (Manual) Eosinophils # (Manual) Basophils # (Manual) PT INR Fibrinogen dRVVT Confirm Interp Factor V Activity POC ABG pH POC ABG pCO2 POC ABG pO2 ABG pO2 ABG HCO3 ABG Base Excess ABG Hemoglobin Oxyhemoglobin Sodium Potassium Chloride Carbon Dioxide BUN Creatinine Glucose POC Glucose 162 H 145 H Lactic Acid Calcium Phosphorus 2.30 L Magnesium Direct Bilirubin AST ALT Alkaline Phosphatase Lactate Dehydrogenase Troponin T C-Reactive Protein Total Protein Albumin Prealbumin Triglycerides Cholesterol LDL Cholesterol Direct HDL Cholesterol PTH Intact Urine pH Urine WBC (Auto) Urine Creatinine Urine Total Protein Fluid Total Protein Vancomycin Trough Rheumatoid Factor Complement C4 Miscellaneous Test Crossmatch 09/04/16 09/04/16 09/04/16 03:31 03:31 05:42 WBC RBC Hgb 9.7 L D Hct MCV 72 L MCH 23 L MCHC RDW 17.5 H Plt Count Lymph % (Auto) 11.1 L [place] % (Auto) Lymph # [place] # Baso # Seg Neutrophils % 84.3 H Seg Neuts % (Manual) Lymphocytes % (Manual) Monocytes % (Manual) Eosinophils % (Manual) Basophils % (Manual) Nucleated RBC % Seg Neutrophils # 8.9 H Seg Neutrophils # Man Lymphocytes # (Manual) Monocytes # (Manual) Eosinophils # (Manual) Basophils # (Manual) PT INR Fibrinogen dRVVT Confirm Interp Factor V Activity POC ABG pH POC ABG pCO2 POC ABG pO2 ABG pO2 ABG HCO3 ABG Base Excess ABG Hemoglobin Oxyhemoglobin Sodium 135 L Potassium 2.9 L* Chloride 97.2 L Carbon Dioxide 19 L BUN Creatinine 1.7 H Glucose 170 H POC Glucose 152 H Lactic Acid Calcium Phosphorus Magnesium Direct Bilirubin AST ALT Alkaline Phosphatase Lactate Dehydrogenase Troponin T C-Reactive Protein Total Protein Albumin Prealbumin Triglycerides 160 H Cholesterol LDL Cholesterol Direct HDL Cholesterol 31 L PTH Intact Urine pH Urine WBC (Auto) Urine Creatinine Urine Total Protein Fluid Total Protein Vancomycin Trough Rheumatoid Factor Complement C4 Miscellaneous Test Crossmatch 09/04/16 09/04/16 09/04/16 11:34 17:46 23:29 WBC RBC Hgb Hct MCV MCH MCHC RDW Plt Count Lymph % (Auto) [place] % (Auto) Lymph # [place] # Baso # Seg Neutrophils % Seg Neuts % (Manual) Lymphocytes % (Manual) Monocytes % (Manual) Eosinophils % (Manual) Basophils % (Manual) Nucleated RBC % Seg Neutrophils # Seg Neutrophils # Man Lymphocytes # (Manual) Monocytes # (Manual) Eosinophils # (Manual) Basophils # (Manual) PT INR Fibrinogen dRVVT Confirm Interp Factor V Activity POC ABG pH POC ABG pCO2 POC ABG pO2 ABG pO2 ABG HCO3 ABG Base Excess ABG Hemoglobin Oxyhemoglobin Sodium Potassium Chloride Carbon Dioxide BUN Creatinine Glucose POC Glucose 165 H 210 H 139 H Lactic Acid Calcium Phosphorus Magnesium Direct Bilirubin AST ALT Alkaline Phosphatase Lactate Dehydrogenase Troponin T C-Reactive Protein Total Protein Albumin Prealbumin Triglycerides Cholesterol LDL Cholesterol Direct HDL Cholesterol PTH Intact Urine pH Urine WBC (Auto) Urine Creatinine Urine Total Protein Fluid Total Protein Vancomycin Trough Rheumatoid Factor Complement C4 Miscellaneous Test Crossmatch 09/05/16 09/05/16 09/05/16 04:05 04:05 05:38 WBC RBC Hgb Hct MCV 76 L D MCH 23 L MCHC RDW 17.8 H Plt Count Lymph % (Auto) [place] % (Auto) Lymph # [place] # Baso # Seg Neutrophils % Seg Neuts % (Manual) Lymphocytes % (Manual) Monocytes % (Manual) Eosinophils % (Manual) Basophils % (Manual) Nucleated RBC % Seg Neutrophils # Seg Neutrophils # Man Lymphocytes # (Manual) Monocytes # (Manual) Eosinophils # (Manual) Basophils # (Manual) PT INR Fibrinogen dRVVT Confirm Interp Factor V Activity POC ABG pH POC ABG pCO2 POC ABG pO2 ABG pO2 ABG HCO3 ABG Base Excess ABG Hemoglobin Oxyhemoglobin Sodium 134 L Potassium Chloride Carbon Dioxide 18 L BUN Creatinine 1.8 H Glucose 192 H POC Glucose 175 H Lactic Acid Calcium Phosphorus Magnesium Direct Bilirubin AST ALT Alkaline Phosphatase Lactate Dehydrogenase Troponin T C-Reactive Protein Total Protein Albumin Prealbumin Triglycerides Cholesterol LDL Cholesterol Direct HDL Cholesterol PTH Intact Urine pH Urine WBC (Auto) Urine Creatinine Urine Total Protein Fluid Total Protein Vancomycin Trough Rheumatoid Factor Complement C4 Miscellaneous Test Crossmatch 09/05/16 09/05/16 09/05/16 11:38 17:48 23:22 WBC RBC Hgb Hct MCV MCH MCHC RDW Plt Count Lymph % (Auto) [place] % (Auto) Lymph # [place] # Baso # Seg Neutrophils % Seg Neuts % (Manual) Lymphocytes % (Manual) Monocytes % (Manual) Eosinophils % (Manual) Basophils % (Manual) Nucleated RBC % Seg Neutrophils # Seg Neutrophils # Man Lymphocytes # (Manual) Monocytes # (Manual) Eosinophils # (Manual) Basophils # (Manual) PT INR Fibrinogen dRVVT Confirm Interp Factor V Activity POC ABG pH POC ABG pCO2 POC ABG pO2 ABG pO2 ABG HCO3 ABG Base Excess ABG Hemoglobin Oxyhemoglobin Sodium Potassium Chloride Carbon Dioxide BUN Creatinine Glucose POC Glucose 164 H 186 H 195 H Lactic Acid Calcium Phosphorus Magnesium Direct Bilirubin AST ALT Alkaline Phosphatase Lactate Dehydrogenase Troponin T C-Reactive Protein Total Protein Albumin Prealbumin Triglycerides Cholesterol LDL Cholesterol Direct HDL Cholesterol PTH Intact Urine pH Urine WBC (Auto) Urine Creatinine Urine Total Protein Fluid Total Protein Vancomycin Trough Rheumatoid Factor Complement C4 Miscellaneous Test Crossmatch 09/06/16 09/06/16 09/06/16 04:12 05:59 07:32 WBC RBC Hgb Hct MCV MCH MCHC RDW Plt Count Lymph % (Auto) [place] % (Auto) Lymph # [place] # Baso # Seg Neutrophils % Seg Neuts % (Manual) Lymphocytes % (Manual) Monocytes % (Manual) Eosinophils % (Manual) Basophils % (Manual) Nucleated RBC % Seg Neutrophils # Seg Neutrophils # Man Lymphocytes # (Manual) Monocytes # (Manual) Eosinophils # (Manual) Basophils # (Manual) PT INR Fibrinogen dRVVT Confirm Interp Factor V Activity POC ABG pH 7.514 H POC ABG pCO2 29.1 L POC ABG pO2 72 L ABG pO2 ABG HCO3 ABG Base Excess ABG Hemoglobin Oxyhemoglobin Sodium 133 L Potassium 3.4 L Chloride 94.9 L Carbon Dioxide 19 L BUN 30 H Creatinine 2.1 H Glucose 139 H POC Glucose 146 H Lactic Acid Calcium Phosphorus Magnesium Direct Bilirubin AST ALT Alkaline Phosphatase Lactate Dehydrogenase Troponin T C-Reactive Protein Total Protein Albumin Prealbumin Triglycerides Cholesterol LDL Cholesterol Direct HDL Cholesterol PTH Intact Urine pH Urine WBC (Auto) Urine Creatinine Urine Total Protein Fluid Total Protein Vancomycin Trough Rheumatoid Factor Complement C4 Miscellaneous Test Crossmatch 09/06/16 09/06/16 09/06/16 11:57 17:58 19:02 WBC RBC Hgb Hct MCV MCH MCHC RDW Plt Count Lymph % (Auto) [place] % (Auto) Lymph # [place] # Baso # Seg Neutrophils % Seg Neuts % (Manual) Lymphocytes % (Manual) Monocytes % (Manual) Eosinophils % (Manual) Basophils % (Manual) Nucleated RBC % Seg Neutrophils # Seg Neutrophils # Man Lymphocytes # (Manual) Monocytes # (Manual) Eosinophils # (Manual) Basophils # (Manual) PT INR Fibrinogen dRVVT Confirm Interp Factor V Activity POC ABG pH 7.465 H POC ABG pCO2 32.0 L POC ABG pO2 ABG pO2 ABG HCO3 ABG Base Excess ABG Hemoglobin Oxyhemoglobin Sodium Potassium Chloride Carbon Dioxide BUN Creatinine Glucose POC Glucose 165 H 160 H Lactic Acid Calcium Phosphorus Magnesium Direct Bilirubin AST ALT Alkaline Phosphatase Lactate Dehydrogenase Troponin T C-Reactive Protein Total Protein Albumin Prealbumin Triglycerides Cholesterol LDL Cholesterol Direct HDL Cholesterol PTH Intact Urine pH Urine WBC (Auto) Urine Creatinine Urine Total Protein Fluid Total Protein Vancomycin Trough Rheumatoid Factor Complement C4 Miscellaneous Test Crossmatch 09/06/16 09/07/16 09/07/16 23:45 02:47 02:47 WBC RBC Hgb Hct MCV MCH MCHC RDW Plt Count Lymph % (Auto) [place] % (Auto) Lymph # [place] # Baso # Seg Neutrophils % Seg Neuts % (Manual) Lymphocytes % (Manual) Monocytes % (Manual) Eosinophils % (Manual) Basophils % (Manual) Nucleated RBC % Seg Neutrophils # Seg Neutrophils # Man Lymphocytes # (Manual) Monocytes # (Manual) Eosinophils # (Manual) Basophils # (Manual) PT INR Fibrinogen dRVVT Confirm Interp Factor V Activity POC ABG pH POC ABG pCO2 POC ABG pO2 ABG pO2 ABG HCO3 ABG Base Excess ABG Hemoglobin Oxyhemoglobin Sodium Potassium Chloride Carbon Dioxide BUN Creatinine Glucose POC Glucose 204 H Lactic Acid Calcium Phosphorus Magnesium Direct Bilirubin AST ALT Alkaline Phosphatase Lactate Dehydrogenase Troponin T C-Reactive Protein Total Protein Albumin Prealbumin Triglycerides Cholesterol LDL Cholesterol Direct HDL Cholesterol PTH Intact Urine pH Urine WBC (Auto) 68.0 H Urine Creatinine 106.1 H Urine Total Protein Fluid Total Protein Vancomycin Trough Rheumatoid Factor Complement C4 Miscellaneous Test Crossmatch 09/07/16 09/07/16 09/07/16 04:50 06:19 06:39 WBC RBC Hgb Hct MCV MCH MCHC RDW Plt Count Lymph % (Auto) [place] % (Auto) Lymph # [place] # Baso # Seg Neutrophils % Seg Neuts % (Manual) Lymphocytes % (Manual) Monocytes % (Manual) Eosinophils % (Manual) Basophils % (Manual) Nucleated RBC % Seg Neutrophils # Seg Neutrophils # Man Lymphocytes # (Manual) Monocytes # (Manual) Eosinophils # (Manual) Basophils # (Manual) PT INR Fibrinogen dRVVT Confirm Interp Factor V Activity POC ABG pH 7.457 H POC ABG pCO2 32.1 L POC ABG pO2 76 L ABG pO2 ABG HCO3 ABG Base Excess ABG Hemoglobin Oxyhemoglobin Sodium 132 L Potassium Chloride 94.7 L Carbon Dioxide BUN 53 H Creatinine 2.9 H Glucose 151 H POC Glucose 149 H Lactic Acid Calcium Phosphorus Magnesium Direct Bilirubin AST ALT Alkaline Phosphatase Lactate Dehydrogenase Troponin T C-Reactive Protein Total Protein Albumin Prealbumin Triglycerides Cholesterol LDL Cholesterol Direct HDL Cholesterol PTH Intact Urine pH Urine WBC (Auto) Urine Creatinine Urine Total Protein Fluid Total Protein Vancomycin Trough Rheumatoid Factor Complement C4 Miscellaneous Test Crossmatch 09/07/16 09/07/16 09/07/16 09:20 11:43 11:43 WBC 19.4 H RBC Hgb 8.3 L Hct 26.4 L D MCV 72 L D MCH 22 L MCHC RDW 17.9 H Plt Count Lymph % (Auto) 8.5 L [place] % (Auto) Lymph # [place] # 1.0 H Baso # Seg Neutrophils % 85.8 H Seg Neuts % (Manual) Lymphocytes % (Manual) Monocytes % (Manual) Eosinophils % (Manual) Basophils % (Manual) Nucleated RBC % Seg Neutrophils # 16.6 H Seg Neutrophils # Man Lymphocytes # (Manual) Monocytes # (Manual) Eosinophils # (Manual) Basophils # (Manual) PT INR Fibrinogen dRVVT Confirm Interp Factor V Activity POC ABG pH POC ABG pCO2 POC ABG pO2 ABG pO2 ABG HCO3 ABG Base Excess ABG Hemoglobin Oxyhemoglobin Sodium 134 L Potassium Chloride 97.2 L Carbon Dioxide 20 L BUN 58 H Creatinine 2.9 H Glucose 147 H POC Glucose Lactic Acid Calcium Phosphorus 2.40 L Magnesium 2.40 H Direct Bilirubin AST ALT Alkaline Phosphatase Lactate Dehydrogenase Troponin T C-Reactive Protein Total Protein 5.8 L Albumin 2.2 L Prealbumin Triglycerides Cholesterol LDL Cholesterol Direct HDL Cholesterol PTH Intact Urine pH Urine WBC (Auto) Urine Creatinine Urine Total Protein Fluid Total Protein Vancomycin Trough Rheumatoid Factor Complement C4 58 H Miscellaneous Test Crossmatch 09/07/16 09/07/16 09/07/16 11:50 16:00 17:31 WBC RBC Hgb Hct MCV MCH MCHC RDW Plt Count Lymph % (Auto) [place] % (Auto) Lymph # [place] # Baso # Seg Neutrophils % Seg Neuts % (Manual) Lymphocytes % (Manual) Monocytes % (Manual) Eosinophils % (Manual) Basophils % (Manual) Nucleated RBC % Seg Neutrophils # Seg Neutrophils # Man Lymphocytes # (Manual) Monocytes # (Manual) Eosinophils # (Manual) Basophils # (Manual) PT INR Fibrinogen dRVVT Confirm Interp Factor V Activity POC ABG pH POC ABG pCO2 POC ABG pO2 158 H ABG pO2 ABG HCO3 ABG Base Excess ABG Hemoglobin Oxyhemoglobin Sodium Potassium Chloride Carbon Dioxide BUN Creatinine Glucose POC Glucose 175 H Lactic Acid Calcium Phosphorus Magnesium Direct Bilirubin AST ALT Alkaline Phosphatase Lactate Dehydrogenase Troponin T C-Reactive Protein Total Protein Albumin Prealbumin Triglycerides Cholesterol LDL Cholesterol Direct HDL Cholesterol PTH Intact Urine pH Urine WBC (Auto) Urine Creatinine 66.3 H Urine Total Protein Fluid Total Protein Vancomycin Trough Rheumatoid Factor Complement C4 Miscellaneous Test Crossmatch 09/07/16 09/08/16 09/08/16 23:50 05:46 06:18 WBC 17.8 H RBC 3.58 L Hgb 8.1 L Hct 25.5 L MCV 71 L MCH 23 L MCHC RDW 18.4 H Plt Count Lymph % (Auto) [place] % (Auto) Lymph # [place] # Baso # Seg Neutrophils % Seg Neuts % (Manual) 92.0 H Lymphocytes % (Manual) 6.0 L Monocytes % (Manual) Eosinophils % (Manual) Basophils % (Manual) Nucleated RBC % Seg Neutrophils # Seg Neutrophils # Man 16.4 H Lymphocytes # (Manual) 1.1 L Monocytes # (Manual) Eosinophils # (Manual) Basophils # (Manual) PT INR Fibrinogen dRVVT Confirm Interp Factor V Activity POC ABG pH POC ABG pCO2 34.3 L POC ABG pO2 71 L ABG pO2 ABG HCO3 ABG Base Excess ABG Hemoglobin Oxyhemoglobin Sodium Potassium Chloride Carbon Dioxide BUN Creatinine Glucose POC Glucose 216 H Lactic Acid Calcium Phosphorus Magnesium Direct Bilirubin AST ALT Alkaline Phosphatase Lactate Dehydrogenase Troponin T C-Reactive Protein Total Protein Albumin Prealbumin Triglycerides Cholesterol LDL Cholesterol Direct HDL Cholesterol PTH Intact Urine pH Urine WBC (Auto) Urine Creatinine Urine Total Protein Fluid Total Protein Vancomycin Trough Rheumatoid Factor Complement C4 Miscellaneous Test Crossmatch 09/08/16 09/08/16 09/08/16 06:18 06:51 10:55 WBC RBC Hgb Hct MCV MCH MCHC RDW Plt Count Lymph % (Auto) [place] % (Auto) Lymph # [place] # Baso # Seg Neutrophils % Seg Neuts % (Manual) Lymphocytes % (Manual) Monocytes % (Manual) Eosinophils % (Manual) Basophils % (Manual) Nucleated RBC % Seg Neutrophils # Seg Neutrophils # Man Lymphocytes # (Manual) Monocytes # (Manual) Eosinophils # (Manual) Basophils # (Manual) PT INR Fibrinogen dRVVT Confirm Interp Factor V Activity POC ABG pH POC ABG pCO2 POC ABG pO2 ABG pO2 ABG HCO3 ABG Base Excess ABG Hemoglobin Oxyhemoglobin Sodium 133 L Potassium Chloride 96.9 L Carbon Dioxide 20 L BUN 63 H Creatinine 2.7 H Glucose 195 H POC Glucose 204 H 169 H Lactic Acid Calcium Phosphorus Magnesium Direct Bilirubin AST ALT Alkaline Phosphatase Lactate Dehydrogenase Troponin T C-Reactive Protein Total Protein Albumin Prealbumin Triglycerides Cholesterol LDL Cholesterol Direct HDL Cholesterol PTH Intact Urine pH Urine WBC (Auto) Urine Creatinine Urine Total Protein Fluid Total Protein Vancomycin Trough Rheumatoid Factor Complement C4 Miscellaneous Test Crossmatch 09/08/16 09/08/16 09/08/16 11:48 11:48 11:48 WBC RBC Hgb Hct MCV MCH MCHC RDW Plt Count Lymph % (Auto) [place] % (Auto) Lymph # [place] # Baso # Seg Neutrophils % Seg Neuts % (Manual) Lymphocytes % (Manual) Monocytes % (Manual) Eosinophils % (Manual) Basophils % (Manual) Nucleated RBC % Seg Neutrophils # Seg Neutrophils # Man Lymphocytes # (Manual) Monocytes # (Manual) Eosinophils # (Manual) Basophils # (Manual) PT INR Fibrinogen 750 H dRVVT Confirm Interp Factor V Activity POC ABG pH POC ABG pCO2 POC ABG pO2 ABG pO2 ABG HCO3 ABG Base Excess ABG Hemoglobin Oxyhemoglobin Sodium Potassium Chloride Carbon Dioxide BUN Creatinine Glucose POC Glucose Lactic Acid Calcium Phosphorus Magnesium Direct Bilirubin AST ALT Alkaline Phosphatase Lactate Dehydrogenase Troponin T C-Reactive Protein 15.70 H Total Protein Albumin Prealbumin Triglycerides Cholesterol LDL Cholesterol Direct HDL Cholesterol PTH Intact Urine pH Urine WBC (Auto) Urine Creatinine Urine Total Protein Fluid Total Protein Vancomycin Trough Rheumatoid Factor 24 H Complement C4 Miscellaneous Test Crossmatch 09/08/16 09/08/16 09/09/16 15:35 18:25 00:24 WBC RBC Hgb Hct MCV MCH MCHC RDW Plt Count Lymph % (Auto) [place] % (Auto) Lymph # [place] # Baso # Seg Neutrophils % Seg Neuts % (Manual) Lymphocytes % (Manual) Monocytes % (Manual) Eosinophils % (Manual) Basophils % (Manual) Nucleated RBC % Seg Neutrophils # Seg Neutrophils # Man Lymphocytes # (Manual) Monocytes # (Manual) Eosinophils # (Manual) Basophils # (Manual) PT INR Fibrinogen dRVVT Confirm Interp Factor V Activity 182 H POC ABG pH POC ABG pCO2 POC ABG pO2 ABG pO2 ABG HCO3 ABG Base Excess ABG Hemoglobin Oxyhemoglobin Sodium Potassium Chloride Carbon Dioxide BUN Creatinine Glucose POC Glucose 184 H 216 H Lactic Acid Calcium Phosphorus Magnesium Direct Bilirubin AST ALT Alkaline Phosphatase Lactate Dehydrogenase Troponin T C-Reactive Protein Total Protein Albumin Prealbumin Triglycerides Cholesterol LDL Cholesterol Direct HDL Cholesterol PTH Intact Urine pH Urine WBC (Auto) Urine Creatinine Urine Total Protein Fluid Total Protein Vancomycin Trough Rheumatoid Factor Complement C4 Miscellaneous Test Crossmatch 09/09/16 09/09/16 09/09/16 03:00 03:00 04:04 WBC 27.9 H RBC Hgb 8.7 L Hct 28.1 L MCV 72 L MCH 22 L MCHC RDW 18.4 H Plt Count 485 H Lymph % (Auto) [place] % (Auto) Lymph # [place] # Baso # Seg Neutrophils % Seg Neuts % (Manual) 77.0 H Lymphocytes % (Manual) 9.0 L Monocytes % (Manual) Eosinophils % (Manual) Basophils % (Manual) Nucleated RBC % Seg Neutrophils # Seg Neutrophils # Man 21.5 H Lymphocytes # (Manual) Monocytes # (Manual) 2.0 H Eosinophils # (Manual) Basophils # (Manual) PT INR Fibrinogen dRVVT Confirm Interp Factor V Activity POC ABG pH POC ABG pCO2 POC ABG pO2 121 H ABG pO2 ABG HCO3 ABG Base Excess ABG Hemoglobin Oxyhemoglobin Sodium 135 L Potassium Chloride 96.3 L Carbon Dioxide 21 L BUN 83 H Creatinine 3.0 H Glucose 135 H POC Glucose Lactic Acid Calcium Phosphorus Magnesium Direct Bilirubin AST ALT Alkaline Phosphatase Lactate Dehydrogenase Troponin T C-Reactive Protein Total Protein Albumin Prealbumin Triglycerides Cholesterol LDL Cholesterol Direct HDL Cholesterol PTH Intact Urine pH Urine WBC (Auto) Urine Creatinine Urine Total Protein Fluid Total Protein Vancomycin Trough Rheumatoid Factor Complement C4 Miscellaneous Test Crossmatch 09/09/16 09/09/16 09/09/16 05:41 11:55 14:13 WBC RBC Hgb Hct MCV MCH MCHC RDW Plt Count Lymph % (Auto) [place] % (Auto) Lymph # [place] # Baso # Seg Neutrophils % Seg Neuts % (Manual) Lymphocytes % (Manual) Monocytes % (Manual) Eosinophils % (Manual) Basophils % (Manual) Nucleated RBC % Seg Neutrophils # Seg Neutrophils # Man Lymphocytes # (Manual) Monocytes # (Manual) Eosinophils # (Manual) Basophils # (Manual) PT INR Fibrinogen dRVVT Confirm Interp Factor V Activity POC ABG pH POC ABG pCO2 POC ABG pO2 ABG pO2 ABG HCO3 ABG Base Excess ABG Hemoglobin Oxyhemoglobin Sodium Potassium Chloride Carbon Dioxide BUN Creatinine Glucose POC Glucose 155 H 186 H Lactic Acid Calcium Phosphorus Magnesium Direct Bilirubin AST ALT Alkaline Phosphatase Lactate Dehydrogenase Troponin T C-Reactive Protein Total Protein Albumin Prealbumin Triglycerides Cholesterol LDL Cholesterol Direct HDL Cholesterol PTH Intact Urine pH Urine WBC (Auto) 25.0 H Urine Creatinine Urine Total Protein Fluid Total Protein Vancomycin Trough Rheumatoid Factor Complement C4 Miscellaneous Test Crossmatch 09/09/16 09/09/16 09/10/16 17:33 23:13 05:09 WBC RBC Hgb Hct MCV MCH MCHC RDW Plt Count Lymph % (Auto) [place] % (Auto) Lymph # [place] # Baso # Seg Neutrophils % Seg Neuts % (Manual) Lymphocytes % (Manual) Monocytes % (Manual) Eosinophils % (Manual) Basophils % (Manual) Nucleated RBC % Seg Neutrophils # Seg Neutrophils # Man Lymphocytes # (Manual) Monocytes # (Manual) Eosinophils # (Manual) Basophils # (Manual) PT INR Fibrinogen dRVVT Confirm Interp Factor V Activity POC ABG pH POC ABG pCO2 POC ABG pO2 74 L ABG pO2 ABG HCO3 ABG Base Excess ABG Hemoglobin Oxyhemoglobin Sodium Potassium Chloride Carbon Dioxide BUN Creatinine Glucose POC Glucose 211 H 215 H Lactic Acid Calcium Phosphorus Magnesium Direct Bilirubin AST ALT Alkaline Phosphatase Lactate Dehydrogenase Troponin T C-Reactive Protein Total Protein Albumin Prealbumin Triglycerides Cholesterol LDL Cholesterol Direct HDL Cholesterol PTH Intact Urine pH Urine WBC (Auto) Urine Creatinine Urine Total Protein Fluid Total Protein Vancomycin Trough Rheumatoid Factor Complement C4 Miscellaneous Test Crossmatch 09/10/16 09/10/16 09/10/16 05:17 05:17 11:31 WBC 15.8 H RBC 3.25 L Hgb 7.3 L Hct 22.9 L MCV 71 L MCH 23 L MCHC RDW 18.4 H Plt Count Lymph % (Auto) [place] % (Auto) Lymph # [place] # Baso # Seg Neutrophils % Seg Neuts % (Manual) 91.0 H Lymphocytes % (Manual) 4.0 L Monocytes % (Manual) Eosinophils % (Manual) Basophils % (Manual) Nucleated RBC % Seg Neutrophils # Seg Neutrophils # Man 14.4 H Lymphocytes # (Manual) 0.6 L Monocytes # (Manual) Eosinophils # (Manual) Basophils # (Manual) PT INR Fibrinogen dRVVT Confirm Interp Factor V Activity POC ABG pH POC ABG pCO2 POC ABG pO2 ABG pO2 ABG HCO3 ABG Base Excess ABG Hemoglobin Oxyhemoglobin Sodium Potassium Chloride Carbon Dioxide 21 L BUN 93 H Creatinine 2.9 H Glucose 146 H POC Glucose 188 H Lactic Acid Calcium 8.1 L Phosphorus Magnesium Direct Bilirubin AST ALT Alkaline Phosphatase Lactate Dehydrogenase Troponin T C-Reactive Protein Total Protein Albumin Prealbumin Triglycerides Cholesterol LDL Cholesterol Direct HDL Cholesterol PTH Intact Urine pH Urine WBC (Auto) Urine Creatinine Urine Total Protein Fluid Total Protein Vancomycin Trough Rheumatoid Factor Complement C4 Miscellaneous Test Crossmatch 09/10/16 09/10/16 09/10/16 13:17 17:20 23:32 WBC RBC Hgb Hct MCV MCH MCHC RDW Plt Count Lymph % (Auto) [place] % (Auto) Lymph # [place] # Baso # Seg Neutrophils % Seg Neuts % (Manual) Lymphocytes % (Manual) Monocytes % (Manual) Eosinophils % (Manual) Basophils % (Manual) Nucleated RBC % Seg Neutrophils # Seg Neutrophils # Man Lymphocytes # (Manual) Monocytes # (Manual) Eosinophils # (Manual) Basophils # (Manual) PT INR Fibrinogen dRVVT Confirm Interp Factor V Activity POC ABG pH POC ABG pCO2 POC ABG pO2 ABG pO2 ABG HCO3 ABG Base Excess ABG Hemoglobin Oxyhemoglobin Sodium Potassium Chloride Carbon Dioxide BUN Creatinine Glucose POC Glucose 199 H 186 H Lactic Acid Calcium Phosphorus Magnesium Direct Bilirubin AST ALT Alkaline Phosphatase Lactate Dehydrogenase Troponin T C-Reactive Protein Total Protein Albumin Prealbumin Triglycerides Cholesterol LDL Cholesterol Direct HDL Cholesterol PTH Intact Urine pH Urine WBC (Auto) Urine Creatinine Urine Total Protein Fluid Total Protein Vancomycin Trough Rheumatoid Factor Complement C4 Miscellaneous Test Crossmatch See Detail 09/11/16 09/11/16 09/11/16 05:10 05:10 05:17 WBC 28.4 H RBC Hgb 9.2 L Hct 29.3 L D MCV 73 L MCH 23 L MCHC RDW 18.9 H Plt Count 452 H Lymph % (Auto) [place] % (Auto) Lymph # [place] # Baso # Seg Neutrophils % Seg Neuts % (Manual) 89.5 H Lymphocytes % (Manual) 2.0 L Monocytes % (Manual) Eosinophils % (Manual) Basophils % (Manual) Nucleated RBC % Seg Neutrophils # Seg Neutrophils # Man 25.4 H Lymphocytes # (Manual) 0.6 L Monocytes # (Manual) 1.3 H Eosinophils # (Manual) Basophils # (Manual) PT INR Fibrinogen dRVVT Confirm Interp Factor V Activity POC ABG pH POC ABG pCO2 POC ABG pO2 ABG pO2 ABG HCO3 ABG Base Excess ABG Hemoglobin Oxyhemoglobin Sodium 136 L Potassium Chloride Carbon Dioxide 18 L BUN 107 H Creatinine 2.6 H Glucose 187 H POC Glucose 230 H Lactic Acid Calcium 8.3 L Phosphorus Magnesium Direct Bilirubin AST ALT Alkaline Phosphatase Lactate Dehydrogenase Troponin T C-Reactive Protein Total Protein Albumin Prealbumin Triglycerides Cholesterol LDL Cholesterol Direct HDL Cholesterol PTH Intact Urine pH Urine WBC (Auto) Urine Creatinine Urine Total Protein Fluid Total Protein Vancomycin Trough Rheumatoid Factor Complement C4 Miscellaneous Test Crossmatch 09/11/16 09/11/16 09/11/16 05:55 12:02 17:32 WBC RBC Hgb Hct MCV MCH MCHC RDW Plt Count Lymph % (Auto) [place] % (Auto) Lymph # [place] # Baso # Seg Neutrophils % Seg Neuts % (Manual) Lymphocytes % (Manual) Monocytes % (Manual) Eosinophils % (Manual) Basophils % (Manual) Nucleated RBC % Seg Neutrophils # Seg Neutrophils # Man Lymphocytes # (Manual) Monocytes # (Manual) Eosinophils # (Manual) Basophils # (Manual) PT INR Fibrinogen dRVVT Confirm Interp Factor V Activity POC ABG pH POC ABG pCO2 33.8 L POC ABG pO2 ABG pO2 ABG HCO3 ABG Base Excess ABG Hemoglobin Oxyhemoglobin Sodium Potassium Chloride Carbon Dioxide BUN Creatinine Glucose POC Glucose 191 H 239 H Lactic Acid Calcium Phosphorus Magnesium Direct Bilirubin AST ALT Alkaline Phosphatase Lactate Dehydrogenase Troponin T C-Reactive Protein Total Protein Albumin Prealbumin Triglycerides Cholesterol LDL Cholesterol Direct HDL Cholesterol PTH Intact Urine pH Urine WBC (Auto) Urine Creatinine Urine Total Protein Fluid Total Protein Vancomycin Trough Rheumatoid Factor Complement C4 Miscellaneous Test Crossmatch 09/11/16 09/12/16 09/12/16 23:52 05:09 05:32 WBC RBC Hgb Hct MCV MCH MCHC RDW Plt Count Lymph % (Auto) [place] % (Auto) Lymph # [place] # Baso # Seg Neutrophils % Seg Neuts % (Manual) Lymphocytes % (Manual) Monocytes % (Manual) Eosinophils % (Manual) Basophils % (Manual) Nucleated RBC % Seg Neutrophils # Seg Neutrophils # Man Lymphocytes # (Manual) Monocytes # (Manual) Eosinophils # (Manual) Basophils # (Manual) PT INR Fibrinogen dRVVT Confirm Interp Factor V Activity POC ABG pH POC ABG pCO2 34.6 L POC ABG pO2 ABG pO2 ABG HCO3 ABG Base Excess ABG Hemoglobin Oxyhemoglobin Sodium Potassium Chloride Carbon Dioxide BUN Creatinine Glucose POC Glucose 265 H 184 H Lactic Acid Calcium Phosphorus Magnesium Direct Bilirubin AST ALT Alkaline Phosphatase Lactate Dehydrogenase Troponin T C-Reactive Protein Total Protein Albumin Prealbumin Triglycerides Cholesterol LDL Cholesterol Direct HDL Cholesterol PTH Intact Urine pH Urine WBC (Auto) Urine Creatinine Urine Total Protein Fluid Total Protein Vancomycin Trough Rheumatoid Factor Complement C4 Miscellaneous Test Crossmatch 09/12/16 09/12/16 09/12/16 06:45 06:45 07:22 WBC 31.7 H RBC 3.54 L Hgb 8.3 L Hct 25.9 L MCV 73 L MCH 23 L MCHC RDW 18.9 H Plt Count Lymph % (Auto) [place] % (Auto) Lymph # [place] # Baso # Seg Neutrophils % Seg Neuts % (Manual) 88.5 H Lymphocytes % (Manual) 4.5 L Monocytes % (Manual) Eosinophils % (Manual) Basophils % (Manual) Nucleated RBC % Seg Neutrophils # Seg Neutrophils # Man 28.1 H Lymphocytes # (Manual) Monocytes # (Manual) 1.0 H Eosinophils # (Manual) Basophils # (Manual) PT INR Fibrinogen dRVVT Confirm Interp Factor V Activity POC ABG pH POC ABG pCO2 POC ABG pO2 ABG pO2 ABG HCO3 ABG Base Excess ABG Hemoglobin Oxyhemoglobin Sodium Potassium Chloride Carbon Dioxide 20 L BUN 115 H Creatinine 2.7 H Glucose 165 H POC Glucose Lactic Acid Calcium 8.0 L Phosphorus Magnesium Direct Bilirubin AST ALT Alkaline Phosphatase Lactate Dehydrogenase Troponin T C-Reactive Protein Total Protein Albumin Prealbumin Triglycerides 217 H Cholesterol LDL Cholesterol Direct HDL Cholesterol PTH Intact Urine pH Urine WBC (Auto) Urine Creatinine Urine Total Protein Fluid Total Protein Vancomycin Trough Rheumatoid Factor Complement C4 Miscellaneous Test Crossmatch 09/12/16 09/12/16 09/12/16 07:22 09:59 12:21 WBC RBC Hgb Hct MCV MCH MCHC RDW Plt Count Lymph % (Auto) [place] % (Auto) Lymph # [place] # Baso # Seg Neutrophils % Seg Neuts % (Manual) Lymphocytes % (Manual) Monocytes % (Manual) Eosinophils % (Manual) Basophils % (Manual) Nucleated RBC % Seg Neutrophils # Seg Neutrophils # Man Lymphocytes # (Manual) Monocytes # (Manual) Eosinophils # (Manual) Basophils # (Manual) PT INR Fibrinogen dRVVT Confirm Interp Positive H Factor V Activity POC ABG pH POC ABG pCO2 POC ABG pO2 ABG pO2 ABG HCO3 ABG Base Excess ABG Hemoglobin Oxyhemoglobin Sodium Potassium Chloride Carbon Dioxide BUN Creatinine Glucose POC Glucose 224 H Lactic Acid Calcium Phosphorus Magnesium Direct Bilirubin AST ALT Alkaline Phosphatase Lactate Dehydrogenase Troponin T C-Reactive Protein 1.70 H Total Protein Albumin Prealbumin Triglycerides Cholesterol LDL Cholesterol Direct HDL Cholesterol PTH Intact Urine pH Urine WBC (Auto) Urine Creatinine Urine Total Protein Fluid Total Protein Vancomycin Trough Rheumatoid Factor Complement C4 Miscellaneous Test Crossmatch 09/12/16 09/12/16 09/13/16 16:51 23:28 04:00 WBC 45.0 H* RBC Hgb 9.4 L Hct MCV 75 L MCH 23 L MCHC RDW 19.0 H Plt Count 470 H Lymph % (Auto) [place] % (Auto) Lymph # [place] # Baso # Seg Neutrophils % Seg Neuts % (Manual) 89.0 H Lymphocytes % (Manual) 5.0 L Monocytes % (Manual) Eosinophils % (Manual) Basophils % (Manual) Nucleated RBC % Seg Neutrophils # Seg Neutrophils # Man 40.1 H Lymphocytes # (Manual) Monocytes # (Manual) Eosinophils # (Manual) Basophils # (Manual) PT INR Fibrinogen dRVVT Confirm Interp Factor V Activity POC ABG pH POC ABG pCO2 POC ABG pO2 ABG pO2 ABG HCO3 ABG Base Excess ABG Hemoglobin Oxyhemoglobin Sodium Potassium Chloride Carbon Dioxide BUN Creatinine Glucose POC Glucose 169 H 150 H Lactic Acid Calcium Phosphorus Magnesium Direct Bilirubin AST ALT Alkaline Phosphatase Lactate Dehydrogenase Troponin T C-Reactive Protein Total Protein Albumin Prealbumin Triglycerides Cholesterol LDL Cholesterol Direct HDL Cholesterol PTH Intact Urine pH Urine WBC (Auto) Urine Creatinine Urine Total Protein Fluid Total Protein Vancomycin Trough Rheumatoid Factor Complement C4 Miscellaneous Test Crossmatch 09/13/16 09/13/16 09/13/16 04:00 11:26 17:31 WBC RBC Hgb Hct MCV MCH MCHC RDW Plt Count Lymph % (Auto) [place] % (Auto) Lymph # [place] # Baso # Seg Neutrophils % Seg Neuts % (Manual) Lymphocytes % (Manual) Monocytes % (Manual) Eosinophils % (Manual) Basophils % (Manual) Nucleated RBC % Seg Neutrophils # Seg Neutrophils # Man Lymphocytes # (Manual) Monocytes # (Manual) Eosinophils # (Manual) Basophils # (Manual) PT INR Fibrinogen dRVVT Confirm Interp Factor V Activity POC ABG pH POC ABG pCO2 POC ABG pO2 ABG pO2 ABG HCO3 ABG Base Excess ABG Hemoglobin Oxyhemoglobin Sodium Potassium Chloride Carbon Dioxide 20 L BUN 116 H Creatinine 3.0 H Glucose 172 H POC Glucose 140 H 183 H Lactic Acid Calcium Phosphorus Magnesium Direct Bilirubin AST ALT Alkaline Phosphatase Lactate Dehydrogenase Troponin T C-Reactive Protein Total Protein 6.2 L Albumin 2.9 L Prealbumin Triglycerides Cholesterol LDL Cholesterol Direct HDL Cholesterol PTH Intact Urine pH Urine WBC (Auto) Urine Creatinine Urine Total Protein Fluid Total Protein Vancomycin Trough Rheumatoid Factor Complement C4 Miscellaneous Test Crossmatch 09/13/16 09/14/16 09/14/16 23:23 04:06 04:07 WBC 29.4 H RBC Hgb 8.9 L Hct 27.3 L MCV 75 L MCH 24 L MCHC RDW 19.1 H Plt Count Lymph % (Auto) [place] % (Auto) Lymph # [place] # Baso # Seg Neutrophils % Seg Neuts % (Manual) 84.0 H Lymphocytes % (Manual) 6.0 L Monocytes % (Manual) 9.0 H Eosinophils % (Manual) Basophils % (Manual) Nucleated RBC % Seg Neutrophils # Seg Neutrophils # Man 24.7 H Lymphocytes # (Manual) Monocytes # (Manual) 2.6 H Eosinophils # (Manual) Basophils # (Manual) PT INR Fibrinogen dRVVT Confirm Interp Factor V Activity POC ABG pH 7.342 L POC ABG pCO2 POC ABG pO2 116 H ABG pO2 ABG HCO3 ABG Base Excess ABG Hemoglobin Oxyhemoglobin Sodium Potassium Chloride Carbon Dioxide BUN Creatinine Glucose POC Glucose 154 H Lactic Acid Calcium Phosphorus Magnesium Direct Bilirubin AST ALT Alkaline Phosphatase Lactate Dehydrogenase Troponin T C-Reactive Protein Total Protein Albumin Prealbumin Triglycerides Cholesterol LDL Cholesterol Direct HDL Cholesterol PTH Intact Urine pH Urine WBC (Auto) Urine Creatinine Urine Total Protein Fluid Total Protein Vancomycin Trough Rheumatoid Factor Complement C4 Miscellaneous Test Crossmatch 09/14/16 09/14/16 09/14/16 04:07 05:29 12:19 WBC RBC Hgb Hct MCV MCH MCHC RDW Plt Count Lymph % (Auto) [place] % (Auto) Lymph # [place] # Baso # Seg Neutrophils % Seg Neuts % (Manual) Lymphocytes % (Manual) Monocytes % (Manual) Eosinophils % (Manual) Basophils % (Manual) Nucleated RBC % Seg Neutrophils # Seg Neutrophils # Man Lymphocytes # (Manual) Monocytes # (Manual) Eosinophils # (Manual) Basophils # (Manual) PT INR Fibrinogen dRVVT Confirm Interp Factor V Activity POC ABG pH POC ABG pCO2 POC ABG pO2 ABG pO2 ABG HCO3 ABG Base Excess ABG Hemoglobin Oxyhemoglobin Sodium 136 L Potassium Chloride Carbon Dioxide 18 L BUN 121 H Creatinine 2.8 H Glucose 214 H POC Glucose 239 H 181 H Lactic Acid Calcium Phosphorus Magnesium Direct Bilirubin AST ALT Alkaline Phosphatase Lactate Dehydrogenase Troponin T C-Reactive Protein Total Protein Albumin Prealbumin Triglycerides Cholesterol LDL Cholesterol Direct HDL Cholesterol PTH Intact Urine pH Urine WBC (Auto) Urine Creatinine Urine Total Protein Fluid Total Protein Vancomycin Trough Rheumatoid Factor Complement C4 Miscellaneous Test Crossmatch 09/14/16 09/14/16 09/15/16 18:12 23:37 05:00 WBC 26.1 H RBC 3.05 L Hgb 7.2 L Hct 22.9 L MCV 75 L MCH 24 L MCHC RDW 19.0 H Plt Count Lymph % (Auto) [place] % (Auto) Lymph # [place] # Baso # Seg Neutrophils % Seg Neuts % (Manual) Lymphocytes % (Manual) Monocytes % (Manual) Eosinophils % (Manual) Basophils % (Manual) Nucleated RBC % Seg Neutrophils # Seg Neutrophils # Man Lymphocytes # (Manual) Monocytes # (Manual) Eosinophils # (Manual) Basophils # (Manual) PT INR Fibrinogen dRVVT Confirm Interp Factor V Activity POC ABG pH POC ABG pCO2 POC ABG pO2 ABG pO2 ABG HCO3 ABG Base Excess ABG Hemoglobin Oxyhemoglobin Sodium Potassium Chloride Carbon Dioxide BUN Creatinine Glucose POC Glucose 266 H 154 H Lactic Acid Calcium Phosphorus Magnesium Direct Bilirubin AST ALT Alkaline Phosphatase Lactate Dehydrogenase Troponin T C-Reactive Protein Total Protein Albumin Prealbumin Triglycerides Cholesterol LDL Cholesterol Direct HDL Cholesterol PTH Intact Urine pH Urine WBC (Auto) Urine Creatinine Urine Total Protein Fluid Total Protein Vancomycin Trough Rheumatoid Factor Complement C4 Miscellaneous Test Crossmatch 09/15/16 09/15/16 09/15/16 05:00 05:17 12:45 WBC RBC Hgb Hct MCV MCH MCHC RDW Plt Count Lymph % (Auto) [place] % (Auto) Lymph # [place] # Baso # Seg Neutrophils % Seg Neuts % (Manual) Lymphocytes % (Manual) Monocytes % (Manual) Eosinophils % (Manual) Basophils % (Manual) Nucleated RBC % Seg Neutrophils # Seg Neutrophils # Man Lymphocytes # (Manual) Monocytes # (Manual) Eosinophils # (Manual) Basophils # (Manual) PT INR Fibrinogen dRVVT Confirm Interp Factor V Activity POC ABG pH POC ABG pCO2 POC ABG pO2 ABG pO2 ABG HCO3 ABG Base Excess ABG Hemoglobin Oxyhemoglobin Sodium Potassium 5.2 H Chloride Carbon Dioxide 18 L BUN 139 H Creatinine 3.7 H Glucose 227 H POC Glucose 226 H 244 H Lactic Acid Calcium 8.3 L Phosphorus Magnesium Direct Bilirubin AST ALT Alkaline Phosphatase Lactate Dehydrogenase Troponin T C-Reactive Protein Total Protein Albumin Prealbumin Triglycerides Cholesterol LDL Cholesterol Direct HDL Cholesterol PTH Intact Urine pH Urine WBC (Auto) Urine Creatinine Urine Total Protein Fluid Total Protein Vancomycin Trough Rheumatoid Factor Complement C4 Miscellaneous Test Crossmatch 09/15/16 09/15/16 09/15/16 14:32 17:33 23:35 WBC RBC Hgb Hct MCV MCH MCHC RDW Plt Count Lymph % (Auto) [place] % (Auto) Lymph # [place] # Baso # Seg Neutrophils % Seg Neuts % (Manual) Lymphocytes % (Manual) Monocytes % (Manual) Eosinophils % (Manual) Basophils % (Manual) Nucleated RBC % Seg Neutrophils # Seg Neutrophils # Man Lymphocytes # (Manual) Monocytes # (Manual) Eosinophils # (Manual) Basophils # (Manual) PT INR Fibrinogen dRVVT Confirm Interp Factor V Activity POC ABG pH POC ABG pCO2 27.7 L POC ABG pO2 120 H ABG pO2 ABG HCO3 ABG Base Excess ABG Hemoglobin Oxyhemoglobin Sodium Potassium Chloride Carbon Dioxide BUN Creatinine Glucose POC Glucose 232 H 167 H Lactic Acid Calcium Phosphorus Magnesium Direct Bilirubin AST ALT Alkaline Phosphatase Lactate Dehydrogenase Troponin T C-Reactive Protein Total Protein Albumin Prealbumin Triglycerides Cholesterol LDL Cholesterol Direct HDL Cholesterol PTH Intact Urine pH Urine WBC (Auto) Urine Creatinine Urine Total Protein Fluid Total Protein Vancomycin Trough Rheumatoid Factor Complement C4 Miscellaneous Test Crossmatch 09/16/16 09/16/16 09/16/16 03:58 10:27 10:27 WBC 19.0 H RBC 2.77 L Hgb 6.5 L Hct 20.9 L MCV 76 L MCH 23 L MCHC RDW 19.3 H Plt Count Lymph % (Auto) 11.0 L [place] % (Auto) Lymph # [place] # 1.1 H Baso # Seg Neutrophils % 82.5 H Seg Neuts % (Manual) Lymphocytes % (Manual) Monocytes % (Manual) Eosinophils % (Manual) Basophils % (Manual) Nucleated RBC % Seg Neutrophils # 15.7 H Seg Neutrophils # Man Lymphocytes # (Manual) Monocytes # (Manual) Eosinophils # (Manual) Basophils # (Manual) PT INR Fibrinogen dRVVT Confirm Interp Factor V Activity POC ABG pH POC ABG pCO2 POC ABG pO2 ABG pO2 ABG HCO3 ABG Base Excess ABG Hemoglobin Oxyhemoglobin Sodium Potassium Chloride 109.3 H Carbon Dioxide 18 L BUN 139 H Creatinine 4.1 H Glucose 144 H POC Glucose 146 H Lactic Acid Calcium 8.1 L Phosphorus Magnesium Direct Bilirubin AST ALT Alkaline Phosphatase Lactate Dehydrogenase Troponin T C-Reactive Protein Total Protein Albumin Prealbumin Triglycerides Cholesterol LDL Cholesterol Direct HDL Cholesterol PTH Intact Urine pH Urine WBC (Auto) Urine Creatinine Urine Total Protein Fluid Total Protein Vancomycin Trough Rheumatoid Factor Complement C4 Miscellaneous Test Crossmatch 09/16/16 09/16/16 09/16/16 12:04 12:10 13:55 WBC RBC Hgb Hct MCV MCH MCHC RDW Plt Count Lymph % (Auto) [place] % (Auto) Lymph # [place] # Baso # Seg Neutrophils % Seg Neuts % (Manual) Lymphocytes % (Manual) Monocytes % (Manual) Eosinophils % (Manual) Basophils % (Manual) Nucleated RBC % Seg Neutrophils # Seg Neutrophils # Man Lymphocytes # (Manual) Monocytes # (Manual) Eosinophils # (Manual) Basophils # (Manual) PT INR Fibrinogen dRVVT Confirm Interp Factor V Activity POC ABG pH POC ABG pCO2 32.9 L POC ABG pO2 ABG pO2 ABG HCO3 ABG Base Excess ABG Hemoglobin Oxyhemoglobin Sodium Potassium Chloride Carbon Dioxide BUN Creatinine Glucose POC Glucose 185 H Lactic Acid Calcium Phosphorus Magnesium Direct Bilirubin AST ALT Alkaline Phosphatase Lactate Dehydrogenase Troponin T C-Reactive Protein Total Protein Albumin Prealbumin Triglycerides Cholesterol LDL Cholesterol Direct HDL Cholesterol PTH Intact Urine pH Urine WBC (Auto) Urine Creatinine Urine Total Protein Fluid Total Protein Vancomycin Trough Rheumatoid Factor Complement C4 Miscellaneous Test Crossmatch See Detail 09/16/16 09/16/16 09/16/16 17:55 19:19 23:48 WBC RBC Hgb Hct MCV MCH MCHC RDW Plt Count Lymph % (Auto) [place] % (Auto) Lymph # [place] # Baso # Seg Neutrophils % Seg Neuts % (Manual) Lymphocytes % (Manual) Monocytes % (Manual) Eosinophils % (Manual) Basophils % (Manual) Nucleated RBC % Seg Neutrophils # Seg Neutrophils # Man Lymphocytes # (Manual) Monocytes # (Manual) Eosinophils # (Manual) Basophils # (Manual) PT INR Fibrinogen dRVVT Confirm Interp Factor V Activity POC ABG pH POC ABG pCO2 POC ABG pO2 ABG pO2 ABG HCO3 ABG Base Excess ABG Hemoglobin Oxyhemoglobin Sodium Potassium Chloride Carbon Dioxide BUN Creatinine Glucose POC Glucose 222 H 107 H Lactic Acid Calcium Phosphorus Magnesium Direct Bilirubin AST ALT Alkaline Phosphatase Lactate Dehydrogenase Troponin T C-Reactive Protein Total Protein Albumin Prealbumin Triglycerides Cholesterol LDL Cholesterol Direct HDL Cholesterol PTH Intact Urine pH Urine WBC (Auto) Urine Creatinine 47.4 H Urine Total Protein 16 H Fluid Total Protein Vancomycin Trough Rheumatoid Factor Complement C4 Miscellaneous Test Crossmatch 09/17/16 09/17/16 09/17/16 03:45 03:45 04:55 WBC 19.6 H RBC 3.41 L Hgb 8.5 L Hct 26.7 L MCV 78 L MCH 25 L MCHC RDW 19.9 H Plt Count Lymph % (Auto) 9.3 L [place] % (Auto) Lymph # [place] # 1.2 H Baso # Seg Neutrophils % 83.9 H Seg Neuts % (Manual) Lymphocytes % (Manual) Monocytes % (Manual) Eosinophils % (Manual) Basophils % (Manual) Nucleated RBC % Seg Neutrophils # 16.4 H Seg Neutrophils # Man Lymphocytes # (Manual) Monocytes # (Manual) Eosinophils # (Manual) Basophils # (Manual) PT INR Fibrinogen dRVVT Confirm Interp Factor V Activity POC ABG pH POC ABG pCO2 POC ABG pO2 ABG pO2 ABG HCO3 ABG Base Excess ABG Hemoglobin Oxyhemoglobin Sodium 146 H Potassium 5.1 H Chloride 110.9 H Carbon Dioxide 16 L BUN 146 H Creatinine 4.0 H Glucose 108 H POC Glucose 133 H Lactic Acid Calcium Phosphorus Magnesium 3.00 H Direct Bilirubin AST ALT Alkaline Phosphatase Lactate Dehydrogenase Troponin T C-Reactive Protein Total Protein Albumin Prealbumin Triglycerides Cholesterol LDL Cholesterol Direct HDL Cholesterol PTH Intact Urine pH Urine WBC (Auto) Urine Creatinine Urine Total Protein Fluid Total Protein Vancomycin Trough Rheumatoid Factor Complement C4 Miscellaneous Test Crossmatch 09/17/16 09/17/16 09/17/16 11:15 17:33 23:47 WBC RBC Hgb Hct MCV MCH MCHC RDW Plt Count Lymph % (Auto) [place] % (Auto) Lymph # [place] # Baso # Seg Neutrophils % Seg Neuts % (Manual) Lymphocytes % (Manual) Monocytes % (Manual) Eosinophils % (Manual) Basophils % (Manual) Nucleated RBC % Seg Neutrophils # Seg Neutrophils # Man Lymphocytes # (Manual) Monocytes # (Manual) Eosinophils # (Manual) Basophils # (Manual) PT INR Fibrinogen dRVVT Confirm Interp Factor V Activity POC ABG pH POC ABG pCO2 POC ABG pO2 ABG pO2 ABG HCO3 ABG Base Excess ABG Hemoglobin Oxyhemoglobin Sodium Potassium Chloride Carbon Dioxide BUN Creatinine Glucose POC Glucose 176 H 246 H 148 H Lactic Acid Calcium Phosphorus Magnesium Direct Bilirubin AST ALT Alkaline Phosphatase Lactate Dehydrogenase Troponin T C-Reactive Protein Total Protein Albumin Prealbumin Triglycerides Cholesterol LDL Cholesterol Direct HDL Cholesterol PTH Intact Urine pH Urine WBC (Auto) Urine Creatinine Urine Total Protein Fluid Total Protein Vancomycin Trough Rheumatoid Factor Complement C4 Miscellaneous Test Crossmatch 09/18/16 09/18/16 09/18/16 05:33 08:31 08:31 WBC 18.0 H RBC 3.17 L Hgb 9.0 L Hct 25.7 L MCV MCH MCHC 35 H RDW 20.4 H Plt Count Lymph % (Auto) [place] % (Auto) Lymph # [place] # Baso # Seg Neutrophils % Seg Neuts % (Manual) Lymphocytes % (Manual) Monocytes % (Manual) Eosinophils % (Manual) Basophils % (Manual) Nucleated RBC % Seg Neutrophils # Seg Neutrophils # Man Lymphocytes # (Manual) Monocytes # (Manual) Eosinophils # (Manual) Basophils # (Manual) PT INR Fibrinogen dRVVT Confirm Interp Factor V Activity POC ABG pH POC ABG pCO2 POC ABG pO2 ABG pO2 ABG HCO3 ABG Base Excess ABG Hemoglobin Oxyhemoglobin Sodium Potassium Chloride Carbon Dioxide 15 L BUN 124 H Creatinine 3.8 H Glucose POC Glucose 120 H Lactic Acid Calcium 8.1 L Phosphorus Magnesium Direct Bilirubin AST ALT Alkaline Phosphatase Lactate Dehydrogenase Troponin T C-Reactive Protein Total Protein Albumin Prealbumin Triglycerides Cholesterol LDL Cholesterol Direct HDL Cholesterol PTH Intact Urine pH Urine WBC (Auto) Urine Creatinine Urine Total Protein Fluid Total Protein Vancomycin Trough Rheumatoid Factor Complement C4 Miscellaneous Test Crossmatch 09/18/16 09/18/16 09/18/16 12:03 15:34 17:50 WBC RBC Hgb Hct MCV MCH MCHC RDW Plt Count Lymph % (Auto) [place] % (Auto) Lymph # [place] # Baso # Seg Neutrophils % Seg Neuts % (Manual) Lymphocytes % (Manual) Monocytes % (Manual) Eosinophils % (Manual) Basophils % (Manual) Nucleated RBC % Seg Neutrophils # Seg Neutrophils # Man Lymphocytes # (Manual) Monocytes # (Manual) Eosinophils # (Manual) Basophils # (Manual) PT INR Fibrinogen dRVVT Confirm Interp Factor V Activity POC ABG pH POC ABG pCO2 25.7 L POC ABG pO2 66 L ABG pO2 ABG HCO3 ABG Base Excess ABG Hemoglobin Oxyhemoglobin Sodium Potassium Chloride Carbon Dioxide BUN Creatinine Glucose POC Glucose 156 H 220 H Lactic Acid Calcium Phosphorus Magnesium Direct Bilirubin AST ALT Alkaline Phosphatase Lactate Dehydrogenase Troponin T C-Reactive Protein Total Protein Albumin Prealbumin Triglycerides Cholesterol LDL Cholesterol Direct HDL Cholesterol PTH Intact Urine pH Urine WBC (Auto) Urine Creatinine Urine Total Protein Fluid Total Protein Vancomycin Trough Rheumatoid Factor Complement C4 Miscellaneous Test Crossmatch 09/19/16 09/19/16 09/19/16 06:21 09:50 09:50 WBC 17.1 H RBC 3.49 L Hgb 9.0 L Hct 28.1 L MCV MCH 26 L MCHC RDW 20.8 H Plt Count Lymph % (Auto) 11.5 L [place] % (Auto) 7.5 H Lymph # [place] # 1.3 H Baso # Seg Neutrophils % 79.8 H Seg Neuts % (Manual) Lymphocytes % (Manual) Monocytes % (Manual) Eosinophils % (Manual) Basophils % (Manual) Nucleated RBC % Seg Neutrophils # 13.7 H Seg Neutrophils # Man Lymphocytes # (Manual) Monocytes # (Manual) Eosinophils # (Manual) Basophils # (Manual) PT INR Fibrinogen dRVVT Confirm Interp Factor V Activity POC ABG pH POC ABG pCO2 POC ABG pO2 ABG pO2 ABG HCO3 ABG Base Excess ABG Hemoglobin Oxyhemoglobin Sodium Potassium Chloride 108.6 H Carbon Dioxide 15 L BUN 125 H Creatinine 4.1 H Glucose 124 H POC Glucose 119 H Lactic Acid Calcium Phosphorus Magnesium Direct Bilirubin AST ALT Alkaline Phosphatase Lactate Dehydrogenase Troponin T C-Reactive Protein Total Protein Albumin Prealbumin Triglycerides Cholesterol LDL Cholesterol Direct HDL Cholesterol PTH Intact Urine pH Urine WBC (Auto) Urine Creatinine Urine Total Protein Fluid Total Protein Vancomycin Trough Rheumatoid Factor Complement C4 Miscellaneous Test Crossmatch 09/19/16 09/19/16 09/19/16 11:25 17:53 23:36 WBC RBC Hgb Hct MCV MCH MCHC RDW Plt Count Lymph % (Auto) [place] % (Auto) Lymph # [place] # Baso # Seg Neutrophils % Seg Neuts % (Manual) Lymphocytes % (Manual) Monocytes % (Manual) Eosinophils % (Manual) Basophils % (Manual) Nucleated RBC % Seg Neutrophils # Seg Neutrophils # Man Lymphocytes # (Manual) Monocytes # (Manual) Eosinophils # (Manual) Basophils # (Manual) PT INR Fibrinogen dRVVT Confirm Interp Factor V Activity POC ABG pH POC ABG pCO2 POC ABG pO2 ABG pO2 ABG HCO3 ABG Base Excess ABG Hemoglobin Oxyhemoglobin Sodium Potassium Chloride Carbon Dioxide BUN Creatinine Glucose POC Glucose 160 H 245 H 121 H Lactic Acid Calcium Phosphorus Magnesium Direct Bilirubin AST ALT Alkaline Phosphatase Lactate Dehydrogenase Troponin T C-Reactive Protein Total Protein Albumin Prealbumin Triglycerides Cholesterol LDL Cholesterol Direct HDL Cholesterol PTH Intact Urine pH Urine WBC (Auto) Urine Creatinine Urine Total Protein Fluid Total Protein Vancomycin Trough Rheumatoid Factor Complement C4 Miscellaneous Test Crossmatch 09/20/16 09/20/16 09/20/16 04:10 04:10 04:10 WBC 17.0 H RBC 3.21 L Hgb 8.2 L Hct 25.5 L MCV MCH 26 L MCHC RDW 20.9 H Plt Count Lymph % (Auto) [place] % (Auto) Lymph # [place] # Baso # Seg Neutrophils % Seg Neuts % (Manual) Lymphocytes % (Manual) Monocytes % (Manual) Eosinophils % (Manual) Basophils % (Manual) Nucleated RBC % Seg Neutrophils # Seg Neutrophils # Man Lymphocytes # (Manual) Monocytes # (Manual) Eosinophils # (Manual) Basophils # (Manual) PT INR Fibrinogen dRVVT Confirm Interp Factor V Activity POC ABG pH POC ABG pCO2 POC ABG pO2 ABG pO2 ABG HCO3 ABG Base Excess ABG Hemoglobin Oxyhemoglobin Sodium Potassium Chloride 111.0 H Carbon Dioxide 16 L BUN 129 H Creatinine 3.7 H Glucose 115 H POC Glucose Lactic Acid Calcium 8.2 L Phosphorus Magnesium Direct Bilirubin AST ALT Alkaline Phosphatase Lactate Dehydrogenase Troponin T C-Reactive Protein Total Protein Albumin Prealbumin Triglycerides 243 H Cholesterol LDL Cholesterol Direct HDL Cholesterol PTH Intact Urine pH Urine WBC (Auto) Urine Creatinine Urine Total Protein Fluid Total Protein Vancomycin Trough Rheumatoid Factor Complement C4 Miscellaneous Test Crossmatch 09/20/16 09/20/16 09/20/16 05:40 11:52 16:50 WBC RBC Hgb Hct MCV MCH MCHC RDW Plt Count Lymph % (Auto) [place] % (Auto) Lymph # [place] # Baso # Seg Neutrophils % Seg Neuts % (Manual) Lymphocytes % (Manual) Monocytes % (Manual) Eosinophils % (Manual) Basophils % (Manual) Nucleated RBC % Seg Neutrophils # Seg Neutrophils # Man Lymphocytes # (Manual) Monocytes # (Manual) Eosinophils # (Manual) Basophils # (Manual) PT INR Fibrinogen dRVVT Confirm Interp Factor V Activity POC ABG pH POC ABG pCO2 POC ABG pO2 ABG pO2 ABG HCO3 ABG Base Excess ABG Hemoglobin Oxyhemoglobin Sodium Potassium Chloride Carbon Dioxide BUN Creatinine Glucose POC Glucose 131 H 183 H 236 H Lactic Acid Calcium Phosphorus Magnesium Direct Bilirubin AST ALT Alkaline Phosphatase Lactate Dehydrogenase Troponin T C-Reactive Protein Total Protein Albumin Prealbumin Triglycerides Cholesterol LDL Cholesterol Direct HDL Cholesterol PTH Intact Urine pH Urine WBC (Auto) Urine Creatinine Urine Total Protein Fluid Total Protein Vancomycin Trough Rheumatoid Factor Complement C4 Miscellaneous Test Crossmatch 09/20/16 09/21/16 09/21/16 23:51 03:30 04:44 WBC RBC Hgb Hct MCV MCH MCHC RDW Plt Count Lymph % (Auto) [place] % (Auto) Lymph # [place] # Baso # Seg Neutrophils % Seg Neuts % (Manual) Lymphocytes % (Manual) Monocytes % (Manual) Eosinophils % (Manual) Basophils % (Manual) Nucleated RBC % Seg Neutrophils # Seg Neutrophils # Man Lymphocytes # (Manual) Monocytes # (Manual) Eosinophils # (Manual) Basophils # (Manual) PT INR Fibrinogen dRVVT Confirm Interp Factor V Activity POC ABG pH POC ABG pCO2 POC ABG pO2 ABG pO2 ABG HCO3 ABG Base Excess ABG Hemoglobin Oxyhemoglobin Sodium Potassium Chloride Carbon Dioxide BUN Creatinine Glucose POC Glucose 114 H 141 H Lactic Acid Calcium Phosphorus Magnesium 2.70 H Direct Bilirubin AST ALT Alkaline Phosphatase Lactate Dehydrogenase Troponin T C-Reactive Protein Total Protein Albumin Prealbumin Triglycerides Cholesterol LDL Cholesterol Direct HDL Cholesterol PTH Intact Urine pH Urine WBC (Auto) Urine Creatinine Urine Total Protein Fluid Total Protein Vancomycin Trough Rheumatoid Factor Complement C4 Miscellaneous Test Crossmatch 09/21/16 09/21/16 09/21/16 07:45 07:45 10:01 WBC 13.8 H RBC 2.94 L Hgb 7.5 L Hct 23.5 L MCV MCH 26 L MCHC RDW 21.2 H Plt Count Lymph % (Auto) 6.9 L [place] % (Auto) 9.4 H Lymph # 0.9 L [place] # 1.3 H Baso # Seg Neutrophils % 83.2 H Seg Neuts % (Manual) Lymphocytes % (Manual) Monocytes % (Manual) Eosinophils % (Manual) Basophils % (Manual) Nucleated RBC % Seg Neutrophils # 11.5 H Seg Neutrophils # Man Lymphocytes # (Manual) Monocytes # (Manual) Eosinophils # (Manual) Basophils # (Manual) PT INR Fibrinogen dRVVT Confirm Interp Factor V Activity POC ABG pH 7.308 L POC ABG pCO2 31.9 L POC ABG pO2 148 H ABG pO2 ABG HCO3 ABG Base Excess ABG Hemoglobin Oxyhemoglobin Sodium 147 H Potassium Chloride 114.2 H Carbon Dioxide 15 L BUN 120 H Creatinine 3.9 H Glucose 156 H POC Glucose Lactic Acid Calcium 8.2 L Phosphorus Magnesium Direct Bilirubin AST ALT Alkaline Phosphatase Lactate Dehydrogenase Troponin T C-Reactive Protein Total Protein Albumin Prealbumin Triglycerides Cholesterol LDL Cholesterol Direct HDL Cholesterol PTH Intact Urine pH Urine WBC (Auto) Urine Creatinine Urine Total Protein Fluid Total Protein Vancomycin Trough Rheumatoid Factor Complement C4 Miscellaneous Test Crossmatch 09/21/16 09/21/16 09/21/16 12:00 12:03 13:00 WBC RBC Hgb Hct MCV MCH MCHC RDW Plt Count Lymph % (Auto) [place] % (Auto) Lymph # [place] # Baso # Seg Neutrophils % Seg Neuts % (Manual) Lymphocytes % (Manual) Monocytes % (Manual) Eosinophils % (Manual) Basophils % (Manual) Nucleated RBC % Seg Neutrophils # Seg Neutrophils # Man Lymphocytes # (Manual) Monocytes # (Manual) Eosinophils # (Manual) Basophils # (Manual) PT INR Fibrinogen dRVVT Confirm Interp Factor V Activity POC ABG pH POC ABG pCO2 POC ABG pO2 ABG pO2 ABG HCO3 ABG Base Excess ABG Hemoglobin Oxyhemoglobin Sodium Potassium Chloride Carbon Dioxide BUN Creatinine Glucose POC Glucose 163 H Lactic Acid Calcium Phosphorus Magnesium Direct Bilirubin AST ALT Alkaline Phosphatase Lactate Dehydrogenase Troponin T C-Reactive Protein Total Protein Albumin Prealbumin Triglycerides Cholesterol LDL Cholesterol Direct HDL Cholesterol PTH Intact Urine pH Urine WBC (Auto) Urine Creatinine 54.8 H Urine Total Protein Fluid Total Protein Vancomycin Trough 2.3 L Rheumatoid Factor Complement C4 Miscellaneous Test Crossmatch 09/21/16 09/21/16 09/22/16 16:51 23:17 06:27 WBC RBC Hgb Hct MCV MCH MCHC RDW Plt Count Lymph % (Auto) [place] % (Auto) Lymph # [place] # Baso # Seg Neutrophils % Seg Neuts % (Manual) Lymphocytes % (Manual) Monocytes % (Manual) Eosinophils % (Manual) Basophils % (Manual) Nucleated RBC % Seg Neutrophils # Seg Neutrophils # Man Lymphocytes # (Manual) Monocytes # (Manual) Eosinophils # (Manual) Basophils # (Manual) PT INR Fibrinogen dRVVT Confirm Interp Factor V Activity POC ABG pH POC ABG pCO2 POC ABG pO2 ABG pO2 ABG HCO3 ABG Base Excess ABG Hemoglobin Oxyhemoglobin Sodium Potassium Chloride Carbon Dioxide BUN Creatinine Glucose POC Glucose 206 H 114 H 115 H Lactic Acid Calcium Phosphorus Magnesium Direct Bilirubin AST ALT Alkaline Phosphatase Lactate Dehydrogenase Troponin T C-Reactive Protein Total Protein Albumin Prealbumin Triglycerides Cholesterol LDL Cholesterol Direct HDL Cholesterol PTH Intact Urine pH Urine WBC (Auto) Urine Creatinine Urine Total Protein Fluid Total Protein Vancomycin Trough Rheumatoid Factor Complement C4 Miscellaneous Test Crossmatch 09/22/16 09/22/16 09/22/16 07:50 07:50 12:00 WBC 17.8 H RBC 3.04 L Hgb 8.0 L Hct 24.7 L MCV MCH 26 L MCHC RDW 21.6 H Plt Count Lymph % (Auto) [place] % (Auto) Lymph # [place] # Baso # Seg Neutrophils % Seg Neuts % (Manual) Lymphocytes % (Manual) Monocytes % (Manual) Eosinophils % (Manual) Basophils % (Manual) Nucleated RBC % Seg Neutrophils # Seg Neutrophils # Man Lymphocytes # (Manual) Monocytes # (Manual) Eosinophils # (Manual) Basophils # (Manual) PT INR Fibrinogen dRVVT Confirm Interp Factor V Activity POC ABG pH POC ABG pCO2 POC ABG pO2 ABG pO2 ABG HCO3 ABG Base Excess ABG Hemoglobin Oxyhemoglobin Sodium 150 H Potassium Chloride 118.2 H Carbon Dioxide 14 L BUN 111 H Creatinine 3.7 H Glucose 157 H POC Glucose 183 H Lactic Acid Calcium Phosphorus Magnesium Direct Bilirubin AST ALT Alkaline Phosphatase Lactate Dehydrogenase Troponin T C-Reactive Protein Total Protein Albumin Prealbumin Triglycerides Cholesterol LDL Cholesterol Direct HDL Cholesterol PTH Intact Urine pH Urine WBC (Auto) Urine Creatinine Urine Total Protein Fluid Total Protein Vancomycin Trough Rheumatoid Factor Complement C4 Miscellaneous Test Crossmatch 09/22/16 09/22/16 09/23/16 17:29 23:10 05:00 WBC 19.2 H RBC 3.13 L Hgb 8.0 L Hct 25.2 L MCV MCH 26 L MCHC RDW 22.1 H Plt Count Lymph % (Auto) [place] % (Auto) Lymph # [place] # Baso # Seg Neutrophils % Seg Neuts % (Manual) 92.0 H Lymphocytes % (Manual) 3.0 L Monocytes % (Manual) Eosinophils % (Manual) Basophils % (Manual) Nucleated RBC % Seg Neutrophils # Seg Neutrophils # Man 17.7 H Lymphocytes # (Manual) 0.6 L Monocytes # (Manual) Eosinophils # (Manual) Basophils # (Manual) PT INR Fibrinogen dRVVT Confirm Interp Factor V Activity POC ABG pH POC ABG pCO2 POC ABG pO2 ABG pO2 ABG HCO3 ABG Base Excess ABG Hemoglobin Oxyhemoglobin Sodium Potassium Chloride Carbon Dioxide BUN Creatinine Glucose POC Glucose 197 H 169 H Lactic Acid Calcium Phosphorus Magnesium Direct Bilirubin AST ALT Alkaline Phosphatase Lactate Dehydrogenase Troponin T C-Reactive Protein Total Protein Albumin Prealbumin Triglycerides Cholesterol LDL Cholesterol Direct HDL Cholesterol PTH Intact Urine pH Urine WBC (Auto) Urine Creatinine Urine Total Protein Fluid Total Protein Vancomycin Trough Rheumatoid Factor Complement C4 Miscellaneous Test Crossmatch 09/23/16 09/23/16 09/23/16 05:00 05:00 05:10 WBC RBC Hgb Hct MCV MCH MCHC RDW Plt Count Lymph % (Auto) [place] % (Auto) Lymph # [place] # Baso # Seg Neutrophils % Seg Neuts % (Manual) Lymphocytes % (Manual) Monocytes % (Manual) Eosinophils % (Manual) Basophils % (Manual) Nucleated RBC % Seg Neutrophils # Seg Neutrophils # Man Lymphocytes # (Manual) Monocytes # (Manual) Eosinophils # (Manual) Basophils # (Manual) PT INR Fibrinogen dRVVT Confirm Interp Factor V Activity POC ABG pH POC ABG pCO2 POC ABG pO2 ABG pO2 ABG HCO3 ABG Base Excess ABG Hemoglobin Oxyhemoglobin Sodium 147 H Potassium 3.2 L Chloride 115.7 H Carbon Dioxide 13 L BUN 111 H Creatinine 3.8 H Glucose 194 H POC Glucose 188 H Lactic Acid Calcium 7.3 L D Phosphorus Magnesium Direct Bilirubin AST ALT Alkaline Phosphatase Lactate Dehydrogenase Troponin T C-Reactive Protein 3.20 H Total Protein Albumin Prealbumin Triglycerides Cholesterol LDL Cholesterol Direct HDL Cholesterol PTH Intact Urine pH Urine WBC (Auto) Urine Creatinine Urine Total Protein Fluid Total Protein Vancomycin Trough Rheumatoid Factor Complement C4 Miscellaneous Test Crossmatch 09/23/16 09/23/16 09/23/16 11:37 12:29 18:01 WBC RBC Hgb Hct MCV MCH MCHC RDW Plt Count Lymph % (Auto) [place] % (Auto) Lymph # [place] # Baso # Seg Neutrophils % Seg Neuts % (Manual) Lymphocytes % (Manual) Monocytes % (Manual) Eosinophils % (Manual) Basophils % (Manual) Nucleated RBC % Seg Neutrophils # Seg Neutrophils # Man Lymphocytes # (Manual) Monocytes # (Manual) Eosinophils # (Manual) Basophils # (Manual) PT INR Fibrinogen dRVVT Confirm Interp Factor V Activity POC ABG pH POC ABG pCO2 18.9 L POC ABG pO2 143 H ABG pO2 ABG HCO3 ABG Base Excess ABG Hemoglobin Oxyhemoglobin Sodium Potassium Chloride Carbon Dioxide BUN Creatinine Glucose POC Glucose 153 H 108 H Lactic Acid Calcium Phosphorus Magnesium Direct Bilirubin AST ALT Alkaline Phosphatase Lactate Dehydrogenase Troponin T C-Reactive Protein Total Protein Albumin Prealbumin Triglycerides Cholesterol LDL Cholesterol Direct HDL Cholesterol PTH Intact Urine pH Urine WBC (Auto) Urine Creatinine Urine Total Protein Fluid Total Protein Vancomycin Trough Rheumatoid Factor Complement C4 Miscellaneous Test Crossmatch 09/23/16 09/23/16 09/24/16 21:19 23:43 05:16 WBC RBC Hgb Hct MCV MCH MCHC RDW Plt Count Lymph % (Auto) [place] % (Auto) Lymph # [place] # Baso # Seg Neutrophils % Seg Neuts % (Manual) Lymphocytes % (Manual) Monocytes % (Manual) Eosinophils % (Manual) Basophils % (Manual) Nucleated RBC % Seg Neutrophils # Seg Neutrophils # Man Lymphocytes # (Manual) Monocytes # (Manual) Eosinophils # (Manual) Basophils # (Manual) PT INR Fibrinogen dRVVT Confirm Interp Factor V Activity POC ABG pH POC ABG pCO2 17.3 L POC ABG pO2 112 H ABG pO2 ABG HCO3 ABG Base Excess ABG Hemoglobin Oxyhemoglobin Sodium Potassium Chloride Carbon Dioxide BUN Creatinine Glucose POC Glucose 143 H 164 H Lactic Acid Calcium Phosphorus Magnesium Direct Bilirubin AST ALT Alkaline Phosphatase Lactate Dehydrogenase Troponin T C-Reactive Protein Total Protein Albumin Prealbumin Triglycerides Cholesterol LDL Cholesterol Direct HDL Cholesterol PTH Intact Urine pH Urine WBC (Auto) Urine Creatinine Urine Total Protein Fluid Total Protein Vancomycin Trough Rheumatoid Factor Complement C4 Miscellaneous Test Crossmatch 09/24/16 09/24/16 09/24/16 05:21 11:58 17:06 WBC RBC Hgb Hct MCV MCH MCHC RDW Plt Count Lymph % (Auto) [place] % (Auto) Lymph # [place] # Baso # Seg Neutrophils % Seg Neuts % (Manual) Lymphocytes % (Manual) Monocytes % (Manual) Eosinophils % (Manual) Basophils % (Manual) Nucleated RBC % Seg Neutrophils # Seg Neutrophils # Man Lymphocytes # (Manual) Monocytes # (Manual) Eosinophils # (Manual) Basophils # (Manual) PT INR Fibrinogen dRVVT Confirm Interp Factor V Activity POC ABG pH POC ABG pCO2 POC ABG pO2 ABG pO2 ABG HCO3 ABG Base Excess ABG Hemoglobin Oxyhemoglobin Sodium Potassium Chloride Carbon Dioxide 10 L BUN 103 H Creatinine 4.3 H Glucose 163 H POC Glucose 173 H 167 H Lactic Acid Calcium 6.5 L Phosphorus Magnesium Direct Bilirubin AST ALT Alkaline Phosphatase Lactate Dehydrogenase Troponin T C-Reactive Protein Total Protein Albumin Prealbumin Triglycerides Cholesterol LDL Cholesterol Direct HDL Cholesterol PTH Intact Urine pH Urine WBC (Auto) Urine Creatinine Urine Total Protein Fluid Total Protein Vancomycin Trough Rheumatoid Factor Complement C4 Miscellaneous Test Crossmatch 09/24/16 09/24/16 09/24/16 20:15 21:02 23:48 WBC RBC Hgb Hct MCV MCH MCHC RDW Plt Count Lymph % (Auto) [place] % (Auto) Lymph # [place] # Baso # Seg Neutrophils % Seg Neuts % (Manual) Lymphocytes % (Manual) Monocytes % (Manual) Eosinophils % (Manual) Basophils % (Manual) Nucleated RBC % Seg Neutrophils # Seg Neutrophils # Man Lymphocytes # (Manual) Monocytes # (Manual) Eosinophils # (Manual) Basophils # (Manual) PT INR Fibrinogen dRVVT Confirm Interp Factor V Activity POC ABG pH 7.288 L POC ABG pCO2 30.2 L 21.5 L POC ABG pO2 32 L 39 L ABG pO2 ABG HCO3 ABG Base Excess ABG Hemoglobin Oxyhemoglobin Sodium Potassium Chloride Carbon Dioxide BUN Creatinine Glucose POC Glucose 109 H Lactic Acid Calcium Phosphorus Magnesium Direct Bilirubin AST ALT Alkaline Phosphatase Lactate Dehydrogenase Troponin T C-Reactive Protein Total Protein Albumin Prealbumin Triglycerides Cholesterol LDL Cholesterol Direct HDL Cholesterol PTH Intact Urine pH Urine WBC (Auto) Urine Creatinine Urine Total Protein Fluid Total Protein Vancomycin Trough Rheumatoid Factor Complement C4 Miscellaneous Test Crossmatch 09/25/16 09/25/16 09/25/16 04:20 04:20 04:20 WBC RBC 2.58 L Hgb 7.0 L Hct 21.0 L MCV MCH 27 L MCHC RDW 23.8 H Plt Count Lymph % (Auto) [place] % (Auto) Lymph # [place] # Baso # Seg Neutrophils % Seg Neuts % (Manual) Lymphocytes % (Manual) 12.0 L Monocytes % (Manual) Eosinophils % (Manual) 7.0 H Basophils % (Manual) 2.0 H Nucleated RBC % Seg Neutrophils # Seg Neutrophils # Man Lymphocytes # (Manual) 0.9 L Monocytes # (Manual) Eosinophils # (Manual) 0.5 H Basophils # (Manual) PT INR Fibrinogen dRVVT Confirm Interp Factor V Activity POC ABG pH POC ABG pCO2 POC ABG pO2 ABG pO2 ABG HCO3 ABG Base Excess ABG Hemoglobin Oxyhemoglobin Sodium Potassium Chloride Carbon Dioxide 15 L BUN 72 H Creatinine 3.8 H Glucose POC Glucose Lactic Acid Calcium 6.0 L Phosphorus 4.60 H Magnesium 1.60 L Direct Bilirubin AST ALT Alkaline Phosphatase Lactate Dehydrogenase Troponin T C-Reactive Protein Total Protein Albumin Prealbumin Triglycerides Cholesterol LDL Cholesterol Direct HDL Cholesterol PTH Intact Urine pH Urine WBC (Auto) Urine Creatinine Urine Total Protein Fluid Total Protein Vancomycin Trough Rheumatoid Factor Complement C4 Miscellaneous Test Crossmatch 09/25/16 09/25/16 09/25/16 04:57 08:02 10:30 WBC RBC Hgb Hct MCV MCH MCHC RDW Plt Count Lymph % (Auto) [place] % (Auto) Lymph # [place] # Baso # Seg Neutrophils % Seg Neuts % (Manual) Lymphocytes % (Manual) Monocytes % (Manual) Eosinophils % (Manual) Basophils % (Manual) Nucleated RBC % Seg Neutrophils # Seg Neutrophils # Man Lymphocytes # (Manual) Monocytes # (Manual) Eosinophils # (Manual) Basophils # (Manual) PT INR Fibrinogen dRVVT Confirm Interp Factor V Activity POC ABG pH POC ABG pCO2 24.7 L POC ABG pO2 152 H ABG pO2 ABG HCO3 ABG Base Excess ABG Hemoglobin Oxyhemoglobin Sodium Potassium Chloride Carbon Dioxide BUN Creatinine Glucose POC Glucose 113 H Lactic Acid Calcium Phosphorus Magnesium Direct Bilirubin AST ALT Alkaline Phosphatase Lactate Dehydrogenase Troponin T C-Reactive Protein Total Protein Albumin Prealbumin Triglycerides Cholesterol LDL Cholesterol Direct HDL Cholesterol PTH Intact Urine pH Urine WBC (Auto) Urine Creatinine Urine Total Protein Fluid Total Protein Vancomycin Trough Rheumatoid Factor Complement C4 Miscellaneous Test Crossmatch See Detail 09/25/16 09/25/16 09/25/16 12:05 17:44 23:47 WBC RBC Hgb Hct MCV MCH MCHC RDW Plt Count Lymph % (Auto) [place] % (Auto) Lymph # [place] # Baso # Seg Neutrophils % Seg Neuts % (Manual) Lymphocytes % (Manual) Monocytes % (Manual) Eosinophils % (Manual) Basophils % (Manual) Nucleated RBC % Seg Neutrophils # Seg Neutrophils # Man Lymphocytes # (Manual) Monocytes # (Manual) Eosinophils # (Manual) Basophils # (Manual) PT INR Fibrinogen dRVVT Confirm Interp Factor V Activity POC ABG pH POC ABG pCO2 POC ABG pO2 ABG pO2 ABG HCO3 ABG Base Excess ABG Hemoglobin Oxyhemoglobin Sodium Potassium Chloride Carbon Dioxide BUN Creatinine Glucose POC Glucose 117 H 119 H 150 H Lactic Acid Calcium Phosphorus Magnesium Direct Bilirubin AST ALT Alkaline Phosphatase Lactate Dehydrogenase Troponin T C-Reactive Protein Total Protein Albumin Prealbumin Triglycerides Cholesterol LDL Cholesterol Direct HDL Cholesterol PTH Intact Urine pH Urine WBC (Auto) Urine Creatinine Urine Total Protein Fluid Total Protein Vancomycin Trough Rheumatoid Factor Complement C4 Miscellaneous Test Crossmatch 09/26/16 09/26/16 09/26/16 04:25 04:25 04:25 WBC RBC 2.65 L Hgb 7.4 L Hct 21.6 L MCV MCH MCHC RDW 22.5 H Plt Count Lymph % (Auto) [place] % (Auto) Lymph # [place] # Baso # Seg Neutrophils % Seg Neuts % (Manual) Lymphocytes % (Manual) 6.0 L Monocytes % (Manual) Eosinophils % (Manual) 11.0 H Basophils % (Manual) Nucleated RBC % Seg Neutrophils # Seg Neutrophils # Man Lymphocytes # (Manual) 0.4 L Monocytes # (Manual) Eosinophils # (Manual) 0.6 H Basophils # (Manual) PT INR Fibrinogen dRVVT Confirm Interp Factor V Activity POC ABG pH POC ABG pCO2 POC ABG pO2 ABG pO2 ABG HCO3 ABG Base Excess ABG Hemoglobin Oxyhemoglobin Sodium Potassium Chloride 97.0 L Carbon Dioxide 19 L BUN 43 H Creatinine 2.6 H Glucose 130 H POC Glucose Lactic Acid 4.40 H* Calcium 6.7 L Phosphorus Magnesium Direct Bilirubin AST ALT Alkaline Phosphatase Lactate Dehydrogenase Troponin T C-Reactive Protein Total Protein Albumin Prealbumin Triglycerides Cholesterol LDL Cholesterol Direct HDL Cholesterol PTH Intact Urine pH Urine WBC (Auto) Urine Creatinine Urine Total Protein Fluid Total Protein Vancomycin Trough Rheumatoid Factor Complement C4 Miscellaneous Test Crossmatch 09/26/16 09/26/16 09/26/16 05:20 11:44 12:12 WBC RBC Hgb Hct MCV MCH MCHC RDW Plt Count Lymph % (Auto) [place] % (Auto) Lymph # [place] # Baso # Seg Neutrophils % Seg Neuts % (Manual) Lymphocytes % (Manual) Monocytes % (Manual) Eosinophils % (Manual) Basophils % (Manual) Nucleated RBC % Seg Neutrophils # Seg Neutrophils # Man Lymphocytes # (Manual) Monocytes # (Manual) Eosinophils # (Manual) Basophils # (Manual) PT INR Fibrinogen dRVVT Confirm Interp Factor V Activity POC ABG pH POC ABG pCO2 27.0 L POC ABG pO2 69 L ABG pO2 ABG HCO3 ABG Base Excess ABG Hemoglobin Oxyhemoglobin Sodium Potassium Chloride Carbon Dioxide BUN Creatinine Glucose POC Glucose 121 H 128 H Lactic Acid Calcium Phosphorus Magnesium Direct Bilirubin AST ALT Alkaline Phosphatase Lactate Dehydrogenase Troponin T C-Reactive Protein Total Protein Albumin Prealbumin Triglycerides Cholesterol LDL Cholesterol Direct HDL Cholesterol PTH Intact Urine pH Urine WBC (Auto) Urine Creatinine Urine Total Protein Fluid Total Protein Vancomycin Trough Rheumatoid Factor Complement C4 Miscellaneous Test Crossmatch 09/26/16 09/26/16 09/27/16 18:31 23:40 08:20 WBC RBC Hgb Hct MCV MCH MCHC RDW Plt Count Lymph % (Auto) [place] % (Auto) Lymph # [place] # Baso # Seg Neutrophils % Seg Neuts % (Manual) Lymphocytes % (Manual) Monocytes % (Manual) Eosinophils % (Manual) Basophils % (Manual) Nucleated RBC % Seg Neutrophils # Seg Neutrophils # Man Lymphocytes # (Manual) Monocytes # (Manual) Eosinophils # (Manual) Basophils # (Manual) PT INR Fibrinogen dRVVT Confirm Interp Factor V Activity POC ABG pH POC ABG pCO2 POC ABG pO2 ABG pO2 ABG HCO3 ABG Base Excess ABG Hemoglobin Oxyhemoglobin Sodium Potassium Chloride Carbon Dioxide BUN Creatinine Glucose POC Glucose 120 H 133 H Lactic Acid 4.10 H* Calcium Phosphorus Magnesium Direct Bilirubin AST ALT Alkaline Phosphatase Lactate Dehydrogenase Troponin T C-Reactive Protein Total Protein Albumin Prealbumin Triglycerides Cholesterol LDL Cholesterol Direct HDL Cholesterol PTH Intact Urine pH Urine WBC (Auto) Urine Creatinine Urine Total Protein Fluid Total Protein Vancomycin Trough Rheumatoid Factor Complement C4 Miscellaneous Test Crossmatch 09/27/16 09/27/16 09/27/16 11:23 15:00 18:15 WBC RBC Hgb Hct MCV MCH MCHC RDW Plt Count Lymph % (Auto) [place] % (Auto) Lymph # [place] # Baso # Seg Neutrophils % Seg Neuts % (Manual) Lymphocytes % (Manual) Monocytes % (Manual) Eosinophils % (Manual) Basophils % (Manual) Nucleated RBC % Seg Neutrophils # Seg Neutrophils # Man Lymphocytes # (Manual) Monocytes # (Manual) Eosinophils # (Manual) Basophils # (Manual) PT INR Fibrinogen dRVVT Confirm Interp Factor V Activity POC ABG pH 7.459 H POC ABG pCO2 27.1 L POC ABG pO2 140 H ABG pO2 ABG HCO3 ABG Base Excess ABG Hemoglobin Oxyhemoglobin Sodium Potassium Chloride Carbon Dioxide BUN Creatinine Glucose POC Glucose 114 H 127 H Lactic Acid Calcium Phosphorus Magnesium Direct Bilirubin AST ALT Alkaline Phosphatase Lactate Dehydrogenase Troponin T C-Reactive Protein Total Protein Albumin Prealbumin Triglycerides Cholesterol LDL Cholesterol Direct HDL Cholesterol PTH Intact Urine pH Urine WBC (Auto) Urine Creatinine Urine Total Protein Fluid Total Protein Vancomycin Trough Rheumatoid Factor Complement C4 Miscellaneous Test Crossmatch 09/27/16 09/27/16 09/28/16 Unknown Unknown 03:45 WBC RBC 2.49 L Hgb 6.8 L Hct 20.7 L MCV MCH 27 L MCHC RDW 22.1 H Plt Count Lymph % (Auto) [place] % (Auto) Lymph # [place] # Baso # Seg Neutrophils % Seg Neuts % (Manual) 32.0 L Lymphocytes % (Manual) 12.0 L Monocytes % (Manual) 11.0 H Eosinophils % (Manual) 10.0 H Basophils % (Manual) Nucleated RBC % Seg Neutrophils # Seg Neutrophils # Man Lymphocytes # (Manual) 1.0 L Monocytes # (Manual) 0.9 H Eosinophils # (Manual) 0.8 H Basophils # (Manual) PT INR Fibrinogen dRVVT Confirm Interp Factor V Activity POC ABG pH POC ABG pCO2 POC ABG pO2 ABG pO2 ABG HCO3 ABG Base Excess ABG Hemoglobin Oxyhemoglobin Sodium 135 L 135 L Potassium 3.5 L Chloride 93.6 L 94.4 L Carbon Dioxide 17 L 21 L BUN 45 H 28 H Creatinine 3.3 H 2.5 H Glucose 106 H POC Glucose Lactic Acid Calcium 7.3 L 7.1 L Phosphorus Magnesium Direct Bilirubin AST ALT Alkaline Phosphatase Lactate Dehydrogenase Troponin T C-Reactive Protein Total Protein Albumin Prealbumin Triglycerides Cholesterol LDL Cholesterol Direct HDL Cholesterol PTH Intact Urine pH Urine WBC (Auto) Urine Creatinine Urine Total Protein Fluid Total Protein Vancomycin Trough Rheumatoid Factor Complement C4 Miscellaneous Test Crossmatch 09/28/16 09/28/16 09/28/16 03:45 07:25 11:58 WBC 13.3 H RBC 3.01 L Hgb 8.4 L Hct 25.0 L MCV MCH MCHC RDW 20.5 H Plt Count 128 L Lymph % (Auto) [place] % (Auto) Lymph # [place] # Baso # Seg Neutrophils % Seg Neuts % (Manual) Lymphocytes % (Manual) 7.0 L Monocytes % (Manual) Eosinophils % (Manual) 6.0 H Basophils % (Manual) Nucleated RBC % Seg Neutrophils # Seg Neutrophils # Man Lymphocytes # (Manual) 0.9 L Monocytes # (Manual) Eosinophils # (Manual) 0.8 H Basophils # (Manual) PT INR Fibrinogen dRVVT Confirm Interp Factor V Activity POC ABG pH POC ABG pCO2 POC ABG pO2 ABG pO2 ABG HCO3 ABG Base Excess ABG Hemoglobin Oxyhemoglobin Sodium Potassium Chloride Carbon Dioxide BUN Creatinine Glucose POC Glucose 121 H Lactic Acid 4.50 H* Calcium Phosphorus Magnesium Direct Bilirubin AST ALT Alkaline Phosphatase Lactate Dehydrogenase Troponin T C-Reactive Protein Total Protein Albumin Prealbumin Triglycerides Cholesterol LDL Cholesterol Direct HDL Cholesterol PTH Intact Urine pH Urine WBC (Auto) Urine Creatinine Urine Total Protein Fluid Total Protein Vancomycin Trough Rheumatoid Factor Complement C4 Miscellaneous Test Crossmatch 09/29/16 09/29/16 09/29/16 06:45 06:45 06:45 WBC 14.9 H RBC 2.74 L Hgb 7.6 L Hct 23.2 L MCV MCH MCHC RDW 20.5 H Plt Count 81 L Lymph % (Auto) [place] % (Auto) Lymph # [place] # Baso # Seg Neutrophils % Seg Neuts % (Manual) 81.0 H Lymphocytes % (Manual) 4.0 L Monocytes % (Manual) Eosinophils % (Manual) Basophils % (Manual) Nucleated RBC % Seg Neutrophils # Seg Neutrophils # Man 12.1 H Lymphocytes # (Manual) 0.6 L Monocytes # (Manual) Eosinophils # (Manual) Basophils # (Manual) PT INR Fibrinogen dRVVT Confirm Interp Factor V Activity POC ABG pH POC ABG pCO2 POC ABG pO2 ABG pO2 ABG HCO3 ABG Base Excess ABG Hemoglobin Oxyhemoglobin Sodium 133 L Potassium 3.4 L Chloride 92.5 L Carbon Dioxide 21 L BUN 33 H Creatinine 3.0 H Glucose POC Glucose Lactic Acid Calcium 6.6 L Phosphorus Magnesium 1.40 L Direct Bilirubin 0.9 H AST ALT Alkaline Phosphatase Lactate Dehydrogenase Troponin T C-Reactive Protein Total Protein 4.3 L Albumin 1.3 L Prealbumin Triglycerides Cholesterol LDL Cholesterol Direct HDL Cholesterol PTH Intact Urine pH Urine WBC (Auto) Urine Creatinine Urine Total Protein Fluid Total Protein Vancomycin Trough Rheumatoid Factor Complement C4 Miscellaneous Test Crossmatch 09/29/16 09/29/16 09/30/16 17:52 20:12 00:07 WBC RBC Hgb Hct MCV MCH MCHC RDW Plt Count Lymph % (Auto) [place] % (Auto) Lymph # [place] # Baso # Seg Neutrophils % Seg Neuts % (Manual) Lymphocytes % (Manual) Monocytes % (Manual) Eosinophils % (Manual) Basophils % (Manual) Nucleated RBC % Seg Neutrophils # Seg Neutrophils # Man Lymphocytes # (Manual) Monocytes # (Manual) Eosinophils # (Manual) Basophils # (Manual) PT INR Fibrinogen dRVVT Confirm Interp Factor V Activity POC ABG pH POC ABG pCO2 POC ABG pO2 ABG pO2 ABG HCO3 ABG Base Excess ABG Hemoglobin Oxyhemoglobin Sodium Potassium Chloride Carbon Dioxide BUN Creatinine Glucose POC Glucose 50 L 51 L Lactic Acid Calcium Phosphorus Magnesium Direct Bilirubin AST ALT Alkaline Phosphatase Lactate Dehydrogenase Troponin T 0.204 H* C-Reactive Protein Total Protein Albumin Prealbumin Triglycerides Cholesterol 31 L LDL Cholesterol Direct 4 L HDL Cholesterol 3 L PTH Intact Urine pH Urine WBC (Auto) Urine Creatinine Urine Total Protein Fluid Total Protein Vancomycin Trough Rheumatoid Factor Complement C4 Miscellaneous Test Crossmatch 09/30/16 09/30/1617 01:30 05:15 06:10 WBC RBC Hgb Hct MCV MCH MCHC RDW Plt Count Lymph % (Auto) [place] % (Auto) Lymph # [place] # Baso # Seg Neutrophils % Seg Neuts % (Manual) Lymphocytes % (Manual) Monocytes % (Manual) Eosinophils % (Manual) Basophils % (Manual) Nucleated RBC % Seg Neutrophils # Seg Neutrophils # Man Lymphocytes # (Manual) Monocytes # (Manual) Eosinophils # (Manual) Basophils # (Manual) PT INR Fibrinogen dRVVT Confirm Interp Factor V Activity POC ABG pH POC ABG pCO2 POC ABG pO2 ABG pO2 ABG HCO3 ABG Base Excess ABG Hemoglobin Oxyhemoglobin Sodium 133 L Potassium 3.2 L Chloride 93.2 L Carbon Dioxide 19 L BUN 36 H Creatinine 3.2 H Glucose 104 H POC Glucose 167 H 146 H Lactic Acid Calcium 6.4 L Phosphorus Magnesium 1.60 L Direct Bilirubin AST ALT Alkaline Phosphatase Lactate Dehydrogenase Troponin T C-Reactive Protein Total Protein Albumin Prealbumin Triglycerides Cholesterol LDL Cholesterol Direct HDL Cholesterol PTH Intact Urine pH Urine WBC (Auto) Urine Creatinine Urine Total Protein Fluid Total Protein Vancomycin Trough Rheumatoid Factor Complement C4 Miscellaneous Test Crossmatch 09/30/16 09/30/16 09/30/16 11:26 13:39 18:38 WBC RBC Hgb Hct MCV MCH MCHC RDW Plt Count Lymph % (Auto) [place] % (Auto) Lymph # [place] # Baso # Seg Neutrophils % Seg Neuts % (Manual) Lymphocytes % (Manual) Monocytes % (Manual) Eosinophils % (Manual) Basophils % (Manual) Nucleated RBC % Seg Neutrophils # Seg Neutrophils # Man Lymphocytes # (Manual) Monocytes # (Manual) Eosinophils # (Manual) Basophils # (Manual) PT INR Fibrinogen dRVVT Confirm Interp Factor V Activity POC ABG pH 7.479 H POC ABG pCO2 29.8 L POC ABG pO2 117 H ABG pO2 ABG HCO3 ABG Base Excess ABG Hemoglobin Oxyhemoglobin Sodium Potassium Chloride Carbon Dioxide BUN Creatinine Glucose POC Glucose 140 H 122 H Lactic Acid Calcium Phosphorus Magnesium Direct Bilirubin AST ALT Alkaline Phosphatase Lactate Dehydrogenase Troponin T C-Reactive Protein Total Protein Albumin Prealbumin Triglycerides Cholesterol LDL Cholesterol Direct HDL Cholesterol PTH Intact Urine pH Urine WBC (Auto) Urine Creatinine Urine Total Protein Fluid Total Protein Vancomycin Trough Rheumatoid Factor Complement C4 Miscellaneous Test Crossmatch 10/01/16 10/01/16 10/01/16 06:00 06:00 12:37 WBC 12.6 H RBC 2.75 L Hgb 7.3 L Hct 23.3 L MCV MCH 27 L MCHC RDW 20.6 H Plt Count 72 L Lymph % (Auto) [place] % (Auto) Lymph # [place] # Baso # Seg Neutrophils % Seg Neuts % (Manual) 31.0 L Lymphocytes % (Manual) 8.0 L Monocytes % (Manual) Eosinophils % (Manual) Basophils % (Manual) Nucleated RBC % 3.0 H Seg Neutrophils # Seg Neutrophils # Man Lymphocytes # (Manual) 1.0 L Monocytes # (Manual) Eosinophils # (Manual) Basophils # (Manual) PT INR Fibrinogen dRVVT Confirm Interp Factor V Activity POC ABG pH POC ABG pCO2 POC ABG pO2 ABG pO2 ABG HCO3 ABG Base Excess ABG Hemoglobin Oxyhemoglobin Sodium 127 L Potassium Chloride 86.8 L Carbon Dioxide 20 L BUN 42 H Creatinine 3.5 H Glucose POC Glucose 65 L Lactic Acid Calcium 7.0 L Phosphorus Magnesium Direct Bilirubin AST ALT Alkaline Phosphatase Lactate Dehydrogenase Troponin T C-Reactive Protein Total Protein Albumin Prealbumin Triglycerides Cholesterol LDL Cholesterol Direct HDL Cholesterol PTH Intact Urine pH Urine WBC (Auto) Urine Creatinine Urine Total Protein Fluid Total Protein Vancomycin Trough Rheumatoid Factor Complement C4 Miscellaneous Test Crossmatch 10/01/16 10/01/16 10/02/16 17:39 23:32 00:59 WBC RBC Hgb Hct MCV MCH MCHC RDW Plt Count Lymph % (Auto) [place] % (Auto) Lymph # [place] # Baso # Seg Neutrophils % Seg Neuts % (Manual) Lymphocytes % (Manual) Monocytes % (Manual) Eosinophils % (Manual) Basophils % (Manual) Nucleated RBC % Seg Neutrophils # Seg Neutrophils # Man Lymphocytes # (Manual) Monocytes # (Manual) Eosinophils # (Manual) Basophils # (Manual) PT INR Fibrinogen dRVVT Confirm Interp Factor V Activity POC ABG pH POC ABG pCO2 POC ABG pO2 ABG pO2 ABG HCO3 ABG Base Excess ABG Hemoglobin Oxyhemoglobin Sodium Potassium Chloride Carbon Dioxide BUN Creatinine Glucose POC Glucose 107 H 52 L 145 H Lactic Acid Calcium Phosphorus Magnesium Direct Bilirubin AST ALT Alkaline Phosphatase Lactate Dehydrogenase Troponin T C-Reactive Protein Total Protein Albumin Prealbumin Triglycerides Cholesterol LDL Cholesterol Direct HDL Cholesterol PTH Intact Urine pH Urine WBC (Auto) Urine Creatinine Urine Total Protein Fluid Total Protein Vancomycin Trough Rheumatoid Factor Complement C4 Miscellaneous Test Crossmatch 08/13/17 08/13/17 08/13/17 10:30 10:50 10:50 WBC 14.7 H RBC 2.76 L Hgb 7.4 L Hct 23.6 L MCV MCH 27 L MCHC RDW 20.2 H Plt Count 79 L Lymph % (Auto) [place] % (Auto) Lymph # [place] # Baso # Seg Neutrophils % Seg Neuts % (Manual) 86.0 H Lymphocytes % (Manual) 6.0 L Monocytes % (Manual) Eosinophils % (Manual) Basophils % (Manual) Nucleated RBC % Seg Neutrophils # Seg Neutrophils # Man 12.6 H Lymphocytes # (Manual) 0.9 L Monocytes # (Manual) Eosinophils # (Manual) Basophils # (Manual) PT INR Fibrinogen dRVVT Confirm Interp Factor V Activity POC ABG pH 7.486 H POC ABG pCO2 30.1 L POC ABG pO2 108 H ABG pO2 ABG HCO3 ABG Base Excess ABG Hemoglobin Oxyhemoglobin Sodium 131 L Potassium 3.4 L Chloride 89.9 L Carbon Dioxide BUN 26 H Creatinine 2.6 H Glucose POC Glucose Lactic Acid Calcium 7.0 L Phosphorus Magnesium Direct Bilirubin AST ALT Alkaline Phosphatase Lactate Dehydrogenase Troponin T C-Reactive Protein Total Protein Albumin Prealbumin Triglycerides Cholesterol LDL Cholesterol Direct HDL Cholesterol PTH Intact Urine pH Urine WBC (Auto) Urine Creatinine Urine Total Protein Fluid Total Protein Vancomycin Trough Rheumatoid Factor Complement C4 Miscellaneous Test Crossmatch 10/02/16 10/03/16 10/03/16 23:45 00:45 05:10 WBC 12.9 H RBC 2.77 L Hgb 7.6 L Hct 23.7 L MCV MCH 27 L MCHC RDW 19.7 H Plt Count 89 L Lymph % (Auto) [place] % (Auto) Lymph # [place] # Baso # Seg Neutrophils % Seg Neuts % (Manual) Lymphocytes % (Manual) 8.0 L Monocytes % (Manual) Eosinophils % (Manual) Basophils % (Manual) Nucleated RBC % Seg Neutrophils # 11.9 H Seg Neutrophils # Man Lymphocytes # (Manual) 1.0 L Monocytes # (Manual) Eosinophils # (Manual) Basophils # (Manual) PT INR Fibrinogen dRVVT Confirm Interp Factor V Activity POC ABG pH POC ABG pCO2 POC ABG pO2 ABG pO2 ABG HCO3 ABG Base Excess ABG Hemoglobin Oxyhemoglobin Sodium Potassium Chloride Carbon Dioxide BUN Creatinine Glucose POC Glucose 55 L 199 H Lactic Acid Calcium Phosphorus Magnesium Direct Bilirubin AST ALT Alkaline Phosphatase Lactate Dehydrogenase Troponin T C-Reactive Protein Total Protein Albumin Prealbumin Triglycerides Cholesterol LDL Cholesterol Direct HDL Cholesterol PTH Intact Urine pH Urine WBC (Auto) Urine Creatinine Urine Total Protein Fluid Total Protein Vancomycin Trough Rheumatoid Factor Complement C4 Miscellaneous Test Crossmatch 10/03/16 10/03/16 10/03/16 05:10 12:14 13:18 WBC RBC Hgb Hct MCV MCH MCHC RDW Plt Count Lymph % (Auto) [place] % (Auto) Lymph # [place] # Baso # Seg Neutrophils % Seg Neuts % (Manual) Lymphocytes % (Manual) Monocytes % (Manual) Eosinophils % (Manual) Basophils % (Manual) Nucleated RBC % Seg Neutrophils # Seg Neutrophils # Man Lymphocytes # (Manual) Monocytes # (Manual) Eosinophils # (Manual) Basophils # (Manual) PT INR Fibrinogen dRVVT Confirm Interp Factor V Activity POC ABG pH POC ABG pCO2 POC ABG pO2 ABG pO2 ABG HCO3 ABG Base Excess ABG Hemoglobin Oxyhemoglobin Sodium 129 L Potassium 3.3 L Chloride 88.8 L Carbon Dioxide 20 L BUN 29 H Creatinine 2.8 H Glucose POC Glucose 68 L 127 H Lactic Acid Calcium 7.2 L Phosphorus Magnesium Direct Bilirubin AST ALT Alkaline Phosphatase Lactate Dehydrogenase Troponin T C-Reactive Protein Total Protein Albumin Prealbumin Triglycerides Cholesterol LDL Cholesterol Direct HDL Cholesterol PTH Intact Urine pH Urine WBC (Auto) Urine Creatinine Urine Total Protein Fluid Total Protein Vancomycin Trough Rheumatoid Factor Complement C4 Miscellaneous Test Crossmatch 10/03/16 10/03/16 10/03/16 14:42 18:21 19:09 WBC RBC Hgb Hct MCV MCH MCHC RDW Plt Count Lymph % (Auto) [place] % (Auto) Lymph # [place] # Baso # Seg Neutrophils % Seg Neuts % (Manual) Lymphocytes % (Manual) Monocytes % (Manual) Eosinophils % (Manual) Basophils % (Manual) Nucleated RBC % Seg Neutrophils # Seg Neutrophils # Man Lymphocytes # (Manual) Monocytes # (Manual) Eosinophils # (Manual) Basophils # (Manual) PT INR Fibrinogen dRVVT Confirm Interp Factor V Activity POC ABG pH 7.499 H POC ABG pCO2 28.4 L POC ABG pO2 44 L ABG pO2 ABG HCO3 ABG Base Excess ABG Hemoglobin Oxyhemoglobin Sodium Potassium Chloride Carbon Dioxide BUN Creatinine Glucose POC Glucose 64 L 205 H Lactic Acid Calcium Phosphorus Magnesium Direct Bilirubin AST ALT Alkaline Phosphatase Lactate Dehydrogenase Troponin T C-Reactive Protein Total Protein Albumin Prealbumin Triglycerides Cholesterol LDL Cholesterol Direct HDL Cholesterol PTH Intact Urine pH Urine WBC (Auto) Urine Creatinine Urine Total Protein Fluid Total Protein Vancomycin Trough Rheumatoid Factor Complement C4 Miscellaneous Test Crossmatch 10/03/16 10/04/16 10/04/16 23:33 04:18 06:30 WBC RBC 2.54 L Hgb 7.1 L Hct 21.7 L MCV MCH MCHC RDW 19.5 H Plt Count 76 L Lymph % (Auto) [place] % (Auto) Lymph # [place] # Baso # Seg Neutrophils % Seg Neuts % (Manual) 88.0 H Lymphocytes % (Manual) 6.0 L Monocytes % (Manual) Eosinophils % (Manual) Basophils % (Manual) Nucleated RBC % Seg Neutrophils # Seg Neutrophils # Man 8.8 H Lymphocytes # (Manual) 0.6 L Monocytes # (Manual) Eosinophils # (Manual) Basophils # (Manual) PT INR Fibrinogen dRVVT Confirm Interp Factor V Activity POC ABG pH 7.461 H POC ABG pCO2 33.6 L POC ABG pO2 211 H ABG pO2 ABG HCO3 ABG Base Excess ABG Hemoglobin Oxyhemoglobin Sodium Potassium Chloride Carbon Dioxide BUN Creatinine Glucose POC Glucose 136 H Lactic Acid Calcium Phosphorus Magnesium Direct Bilirubin AST ALT Alkaline Phosphatase Lactate Dehydrogenase Troponin T C-Reactive Protein Total Protein Albumin Prealbumin Triglycerides Cholesterol LDL Cholesterol Direct HDL Cholesterol PTH Intact Urine pH Urine WBC (Auto) Urine Creatinine Urine Total Protein Fluid Total Protein Vancomycin Trough Rheumatoid Factor Complement C4 Miscellaneous Test Crossmatch 10/04/16 10/04/16 10/04/16 06:30 11:45 17:54 WBC RBC Hgb Hct MCV MCH MCHC RDW Plt Count Lymph % (Auto) [place] % (Auto) Lymph # [place] # Baso # Seg Neutrophils % Seg Neuts % (Manual) Lymphocytes % (Manual) Monocytes % (Manual) Eosinophils % (Manual) Basophils % (Manual) Nucleated RBC % Seg Neutrophils # Seg Neutrophils # Man Lymphocytes # (Manual) Monocytes # (Manual) Eosinophils # (Manual) Basophils # (Manual) PT INR Fibrinogen dRVVT Confirm Interp Factor V Activity POC ABG pH POC ABG pCO2 POC ABG pO2 ABG pO2 ABG HCO3 ABG Base Excess ABG Hemoglobin Oxyhemoglobin Sodium 128 L Potassium Chloride 87.4 L Carbon Dioxide 20 L BUN 34 H Creatinine 2.9 H Glucose 127 H POC Glucose 158 H 160 H Lactic Acid Calcium 7.4 L Phosphorus Magnesium Direct Bilirubin AST ALT Alkaline Phosphatase Lactate Dehydrogenase Troponin T C-Reactive Protein Total Protein Albumin Prealbumin Triglycerides Cholesterol LDL Cholesterol Direct HDL Cholesterol PTH Intact Urine pH Urine WBC (Auto) Urine Creatinine Urine Total Protein Fluid Total Protein Vancomycin Trough Rheumatoid Factor Complement C4 Miscellaneous Test Crossmatch 10/04/16 10/05/16 10/05/16 23:25 04:30 05:00 WBC RBC 2.64 L Hgb 7.5 L Hct 22.6 L MCV MCH MCHC RDW 19.3 H Plt Count 80 L Lymph % (Auto) [place] % (Auto) Lymph # [place] # Baso # Seg Neutrophils % Seg Neuts % (Manual) Lymphocytes % (Manual) 12.0 L Monocytes % (Manual) Eosinophils % (Manual) Basophils % (Manual) Nucleated RBC % Seg Neutrophils # Seg Neutrophils # Man Lymphocytes # (Manual) Monocytes # (Manual) Eosinophils # (Manual) Basophils # (Manual) PT INR Fibrinogen dRVVT Confirm Interp Factor V Activity POC ABG pH 7.475 H POC ABG pCO2 33.3 L POC ABG pO2 140 H ABG pO2 ABG HCO3 ABG Base Excess ABG Hemoglobin Oxyhemoglobin Sodium Potassium Chloride Carbon Dioxide BUN Creatinine Glucose POC Glucose 141 H Lactic Acid Calcium Phosphorus Magnesium Direct Bilirubin AST ALT Alkaline Phosphatase Lactate Dehydrogenase Troponin T C-Reactive Protein Total Protein Albumin Prealbumin Triglycerides Cholesterol LDL Cholesterol Direct HDL Cholesterol PTH Intact Urine pH Urine WBC (Auto) Urine Creatinine Urine Total Protein Fluid Total Protein Vancomycin Trough Rheumatoid Factor Complement C4 Miscellaneous Test Crossmatch 10/05/16 10/05/16 10/05/16 05:00 05:09 12:58 WBC RBC Hgb Hct MCV MCH MCHC RDW Plt Count Lymph % (Auto) [place] % (Auto) Lymph # [place] # Baso # Seg Neutrophils % Seg Neuts % (Manual) Lymphocytes % (Manual) Monocytes % (Manual) Eosinophils % (Manual) Basophils % (Manual) Nucleated RBC % Seg Neutrophils # Seg Neutrophils # Man Lymphocytes # (Manual) Monocytes # (Manual) Eosinophils # (Manual) Basophils # (Manual) PT INR Fibrinogen dRVVT Confirm Interp Factor V Activity POC ABG pH POC ABG pCO2 POC ABG pO2 ABG pO2 ABG HCO3 ABG Base Excess ABG Hemoglobin Oxyhemoglobin Sodium 131 L Potassium Chloride 94.0 L Carbon Dioxide 20 L BUN 22 H Creatinine 2.0 H Glucose 123 H POC Glucose 166 H 179 H Lactic Acid Calcium 7.7 L Phosphorus 2.20 L D Magnesium Direct Bilirubin AST ALT Alkaline Phosphatase Lactate Dehydrogenase Troponin T C-Reactive Protein Total Protein Albumin Prealbumin Triglycerides Cholesterol LDL Cholesterol Direct HDL Cholesterol PTH Intact Urine pH Urine WBC (Auto) Urine Creatinine Urine Total Protein Fluid Total Protein Vancomycin Trough Rheumatoid Factor Complement C4 Miscellaneous Test Crossmatch 10/05/16 10/05/16 10/05/16 15:50 18:53 23:12 WBC RBC Hgb Hct MCV MCH MCHC RDW Plt Count Lymph % (Auto) [place] % (Auto) Lymph # [place] # Baso # Seg Neutrophils % Seg Neuts % (Manual) Lymphocytes % (Manual) Monocytes % (Manual) Eosinophils % (Manual) Basophils % (Manual) Nucleated RBC % Seg Neutrophils # Seg Neutrophils # Man Lymphocytes # (Manual) Monocytes # (Manual) Eosinophils # (Manual) Basophils # (Manual) PT INR Fibrinogen dRVVT Confirm Interp Factor V Activity POC ABG pH POC ABG pCO2 POC ABG pO2 ABG pO2 ABG HCO3 ABG Base Excess ABG Hemoglobin Oxyhemoglobin Sodium Potassium Chloride Carbon Dioxide BUN Creatinine Glucose POC Glucose 150 H 164 H Lactic Acid Calcium Phosphorus Magnesium Direct Bilirubin AST ALT Alkaline Phosphatase Lactate Dehydrogenase Troponin T C-Reactive Protein Total Protein Albumin Prealbumin Triglycerides Cholesterol LDL Cholesterol Direct HDL Cholesterol PTH Intact Urine pH Urine WBC (Auto) Urine Creatinine Urine Total Protein Fluid Total Protein Vancomycin Trough Rheumatoid Factor Complement C4 Miscellaneous Test Crossmatch See Detail 10/06/16 10/06/16 10/06/16 03:50 03:50 04:53 WBC RBC 3.00 L Hgb 8.6 L Hct 25.8 L MCV MCH MCHC RDW 17.9 H Plt Count 65 L Lymph % (Auto) [place] % (Auto) Lymph # [place] # Baso # Seg Neutrophils % Seg Neuts % (Manual) 30.0 L Lymphocytes % (Manual) 5.0 L Monocytes % (Manual) Eosinophils % (Manual) Basophils % (Manual) Nucleated RBC % Seg Neutrophils # Seg Neutrophils # Man Lymphocytes # (Manual) 0.4 L Monocytes # (Manual) Eosinophils # (Manual) Basophils # (Manual) PT INR Fibrinogen dRVVT Confirm Interp Factor V Activity POC ABG pH 7.310 L POC ABG pCO2 49.0 H POC ABG pO2 ABG pO2 ABG HCO3 ABG Base Excess ABG Hemoglobin Oxyhemoglobin Sodium 133 L Potassium Chloride 95.9 L Carbon Dioxide BUN 26 H Creatinine 2.0 H Glucose 116 H POC Glucose Lactic Acid Calcium 7.8 L Phosphorus Magnesium Direct Bilirubin AST ALT Alkaline Phosphatase Lactate Dehydrogenase Troponin T C-Reactive Protein Total Protein Albumin Prealbumin Triglycerides Cholesterol LDL Cholesterol Direct HDL Cholesterol PTH Intact Urine pH Urine WBC (Auto) Urine Creatinine Urine Total Protein Fluid Total Protein Vancomycin Trough Rheumatoid Factor Complement C4 Miscellaneous Test Crossmatch 10/06/16 10/06/16 10/06/16 05:23 11:52 18:34 WBC RBC Hgb Hct MCV MCH MCHC RDW Plt Count Lymph % (Auto) [place] % (Auto) Lymph # [place] # Baso # Seg Neutrophils % Seg Neuts % (Manual) Lymphocytes % (Manual) Monocytes % (Manual) Eosinophils % (Manual) Basophils % (Manual) Nucleated RBC % Seg Neutrophils # Seg Neutrophils # Man Lymphocytes # (Manual) Monocytes # (Manual) Eosinophils # (Manual) Basophils # (Manual) PT INR Fibrinogen dRVVT Confirm Interp Factor V Activity POC ABG pH POC ABG pCO2 POC ABG pO2 ABG pO2 ABG HCO3 ABG Base Excess ABG Hemoglobin Oxyhemoglobin Sodium Potassium Chloride Carbon Dioxide BUN Creatinine Glucose POC Glucose 126 H 116 H 129 H Lactic Acid Calcium Phosphorus Magnesium Direct Bilirubin AST ALT Alkaline Phosphatase Lactate Dehydrogenase Troponin T C-Reactive Protein Total Protein Albumin Prealbumin Triglycerides Cholesterol LDL Cholesterol Direct HDL Cholesterol PTH Intact Urine pH Urine WBC (Auto) Urine Creatinine Urine Total Protein Fluid Total Protein Vancomycin Trough Rheumatoid Factor Complement C4 Miscellaneous Test Crossmatch 10/07/16 10/07/16 10/07/16 03:45 05:00 10:00 WBC 17.0 H RBC 2.68 L Hgb 7.3 L Hct 25.3 L MCV MCH 27 L MCHC 29 L RDW 19.6 H Plt Count 74 L Lymph % (Auto) [place] % (Auto) Lymph # [place] # Baso # Seg Neutrophils % Seg Neuts % (Manual) Lymphocytes % (Manual) 12.0 L Monocytes % (Manual) Eosinophils % (Manual) Basophils % (Manual) Nucleated RBC % 4.0 H Seg Neutrophils # Seg Neutrophils # Man 10.7 H Lymphocytes # (Manual) Monocytes # (Manual) Eosinophils # (Manual) Basophils # (Manual) PT INR Fibrinogen dRVVT Confirm Interp Factor V Activity POC ABG pH POC ABG pCO2 POC ABG pO2 ABG pO2 ABG HCO3 ABG Base Excess ABG Hemoglobin Oxyhemoglobin Sodium 130 L Potassium 3.2 L Chloride 93.9 L Carbon Dioxide 20 L BUN 44 H Creatinine 2.7 H Glucose 129 H POC Glucose Lactic Acid Calcium 7.4 L Phosphorus Magnesium Direct Bilirubin AST ALT 6 L Alkaline Phosphatase 195 H Lactate Dehydrogenase Troponin T C-Reactive Protein Total Protein 4.9 L Albumin 1.0 L Prealbumin Triglycerides Cholesterol LDL Cholesterol Direct HDL Cholesterol PTH Intact Urine pH Urine WBC (Auto) Urine Creatinine Urine Total Protein Fluid Total Protein Vancomycin Trough Rheumatoid Factor Complement C4 Miscellaneous Test Flexitest 1 H Crossmatch 10/07/16 10/07/16 10/07/16 10:00 11:24 18:10 WBC RBC Hgb Hct MCV MCH MCHC RDW Plt Count Lymph % (Auto) [place] % (Auto) Lymph # [place] # Baso # Seg Neutrophils % Seg Neuts % (Manual) Lymphocytes % (Manual) Monocytes % (Manual) Eosinophils % (Manual) Basophils % (Manual) Nucleated RBC % Seg Neutrophils # Seg Neutrophils # Man Lymphocytes # (Manual) Monocytes # (Manual) Eosinophils # (Manual) Basophils # (Manual) PT INR Fibrinogen dRVVT Confirm Interp Factor V Activity POC ABG pH POC ABG pCO2 POC ABG pO2 ABG pO2 ABG HCO3 ABG Base Excess ABG Hemoglobin Oxyhemoglobin Sodium Potassium Chloride Carbon Dioxide BUN Creatinine Glucose POC Glucose 116 H 130 H Lactic Acid Calcium Phosphorus Magnesium Direct Bilirubin AST ALT Alkaline Phosphatase Lactate Dehydrogenase Troponin T C-Reactive Protein 19.40 H Total Protein Albumin Prealbumin Triglycerides Cholesterol LDL Cholesterol Direct HDL Cholesterol PTH Intact Urine pH Urine WBC (Auto) Urine Creatinine Urine Total Protein Fluid Total Protein Vancomycin Trough Rheumatoid Factor Complement C4 Miscellaneous Test Crossmatch 10/07/16 10/08/16 10/08/16 18:30 00:00 04:00 WBC RBC Hgb Hct MCV MCH MCHC RDW Plt Count Lymph % (Auto) [place] % (Auto) Lymph # [place] # Baso # Seg Neutrophils % Seg Neuts % (Manual) Lymphocytes % (Manual) Monocytes % (Manual) Eosinophils % (Manual) Basophils % (Manual) Nucleated RBC % Seg Neutrophils # Seg Neutrophils # Man Lymphocytes # (Manual) Monocytes # (Manual) Eosinophils # (Manual) Basophils # (Manual) PT INR Fibrinogen dRVVT Confirm Interp Factor V Activity POC ABG pH POC ABG pCO2 POC ABG pO2 ABG pO2 ABG HCO3 ABG Base Excess ABG Hemoglobin Oxyhemoglobin Sodium 132 L Potassium 3.3 L Chloride 93.6 L Carbon Dioxide 17 L BUN 59 H Creatinine 2.7 H Glucose 121 H POC Glucose 122 H Lactic Acid Calcium 7.6 L Phosphorus Magnesium Direct Bilirubin AST ALT Alkaline Phosphatase Lactate Dehydrogenase Troponin T C-Reactive Protein Total Protein Albumin Prealbumin Triglycerides Cholesterol LDL Cholesterol Direct HDL Cholesterol PTH Intact Urine pH Urine WBC (Auto) > 182.0 H Urine Creatinine Urine Total Protein Fluid Total Protein Vancomycin Trough Rheumatoid Factor Complement C4 Miscellaneous Test Crossmatch 10/08/16 10/08/16 10/08/16 04:30 05:30 11:51 WBC RBC 5.15 H Hgb 14.4 H D Hct 44.5 H D MCV MCH MCHC RDW 19.5 H Plt Count 56 L Lymph % (Auto) [place] % (Auto) Lymph # [place] # Baso # Seg Neutrophils % Seg Neuts % (Manual) 24.0 L Lymphocytes % (Manual) 8.0 L Monocytes % (Manual) Eosinophils % (Manual) Basophils % (Manual) Nucleated RBC % 9.0 H Seg Neutrophils # Seg Neutrophils # Man Lymphocytes # (Manual) 0.7 L Monocytes # (Manual) Eosinophils # (Manual) Basophils # (Manual) PT INR Fibrinogen dRVVT Confirm Interp Factor V Activity POC ABG pH POC ABG pCO2 POC ABG pO2 ABG pO2 ABG HCO3 ABG Base Excess ABG Hemoglobin Oxyhemoglobin Sodium Potassium Chloride Carbon Dioxide BUN Creatinine Glucose POC Glucose 125 H 150 H Lactic Acid Calcium Phosphorus Magnesium Direct Bilirubin AST ALT Alkaline Phosphatase Lactate Dehydrogenase Troponin T C-Reactive Protein Total Protein Albumin Prealbumin Triglycerides Cholesterol LDL Cholesterol Direct HDL Cholesterol PTH Intact Urine pH Urine WBC (Auto) Urine Creatinine Urine Total Protein Fluid Total Protein Vancomycin Trough Rheumatoid Factor Complement C4 Miscellaneous Test Crossmatch 10/08/16 10/08/16 10/08/16 12:49 17:07 19:30 WBC RBC Hgb 7.1 L D Hct 22.4 L D MCV MCH MCHC RDW Plt Count Lymph % (Auto) [place] % (Auto) Lymph # [place] # Baso # Seg Neutrophils % Seg Neuts % (Manual) Lymphocytes % (Manual) Monocytes % (Manual) Eosinophils % (Manual) Basophils % (Manual) Nucleated RBC % Seg Neutrophils # Seg Neutrophils # Man Lymphocytes # (Manual) Monocytes # (Manual) Eosinophils # (Manual) Basophils # (Manual) PT INR Fibrinogen dRVVT Confirm Interp Factor V Activity POC ABG pH POC ABG pCO2 28.2 L POC ABG pO2 111 H ABG pO2 ABG HCO3 ABG Base Excess ABG Hemoglobin Oxyhemoglobin Sodium Potassium Chloride Carbon Dioxide BUN Creatinine Glucose POC Glucose 145 H Lactic Acid Calcium Phosphorus Magnesium Direct Bilirubin AST ALT Alkaline Phosphatase Lactate Dehydrogenase Troponin T C-Reactive Protein Total Protein Albumin Prealbumin Triglycerides Cholesterol LDL Cholesterol Direct HDL Cholesterol PTH Intact Urine pH Urine WBC (Auto) Urine Creatinine Urine Total Protein Fluid Total Protein Vancomycin Trough Rheumatoid Factor Complement C4 Miscellaneous Test Crossmatch 10/08/16 10/09/16 10/09/16 19:30 03:45 03:45 WBC 12.6 H RBC 2.36 L Hgb 6.7 L Hct 21.1 L MCV MCH MCHC RDW 19.5 H Plt Count 75 L Lymph % (Auto) [place] % (Auto) Lymph # [place] # Baso # Seg Neutrophils % Seg Neuts % (Manual) Lymphocytes % (Manual) Monocytes % (Manual) 10.0 H Eosinophils % (Manual) Basophils % (Manual) Nucleated RBC % 3.0 H Seg Neutrophils # Seg Neutrophils # Man Lymphocytes # (Manual) Monocytes # (Manual) 1.3 H Eosinophils # (Manual) Basophils # (Manual) PT 18.0 H INR 1.41 H Fibrinogen dRVVT Confirm Interp Factor V Activity POC ABG pH POC ABG pCO2 POC ABG pO2 ABG pO2 ABG HCO3 ABG Base Excess ABG Hemoglobin Oxyhemoglobin Sodium 135 L Potassium Chloride Carbon Dioxide 17 L BUN 81 H Creatinine 3.2 H Glucose 109 H POC Glucose Lactic Acid Calcium 7.4 L Phosphorus 4.60 H D Magnesium Direct Bilirubin AST ALT Alkaline Phosphatase Lactate Dehydrogenase Troponin T C-Reactive Protein Total Protein Albumin Prealbumin Triglycerides Cholesterol LDL Cholesterol Direct HDL Cholesterol PTH Intact Urine pH Urine WBC (Auto) Urine Creatinine Urine Total Protein Fluid Total Protein Vancomycin Trough Rheumatoid Factor Complement C4 Miscellaneous Test Crossmatch 10/09/16 10/09/16 10/09/16 03:45 05:14 07:20 WBC RBC Hgb Hct MCV MCH MCHC RDW Plt Count Lymph % (Auto) [place] % (Auto) Lymph # [place] # Baso # Seg Neutrophils % Seg Neuts % (Manual) Lymphocytes % (Manual) Monocytes % (Manual) Eosinophils % (Manual) Basophils % (Manual) Nucleated RBC % Seg Neutrophils # Seg Neutrophils # Man Lymphocytes # (Manual) Monocytes # (Manual) Eosinophils # (Manual) Basophils # (Manual) PT 19.0 H INR 1.51 H Fibrinogen dRVVT Confirm Interp Factor V Activity POC ABG pH POC ABG pCO2 POC ABG pO2 ABG pO2 ABG HCO3 ABG Base Excess ABG Hemoglobin Oxyhemoglobin Sodium Potassium Chloride Carbon Dioxide BUN Creatinine Glucose POC Glucose 151 H Lactic Acid Calcium Phosphorus Magnesium Direct Bilirubin AST ALT Alkaline Phosphatase Lactate Dehydrogenase Troponin T C-Reactive Protein Total Protein Albumin Prealbumin Triglycerides Cholesterol LDL Cholesterol Direct HDL Cholesterol PTH Intact Urine pH Urine WBC (Auto) Urine Creatinine Urine Total Protein Fluid Total Protein Vancomycin Trough Rheumatoid Factor Complement C4 Miscellaneous Test Crossmatch See Detail 10/09/16 10/09/16 10/09/16 11:46 16:20 16:43 WBC RBC Hgb 7.2 L Hct 22.2 L MCV MCH MCHC RDW Plt Count Lymph % (Auto) [place] % (Auto) Lymph # [place] # Baso # Seg Neutrophils % Seg Neuts % (Manual) Lymphocytes % (Manual) Monocytes % (Manual) Eosinophils % (Manual) Basophils % (Manual) Nucleated RBC % Seg Neutrophils # Seg Neutrophils # Man Lymphocytes # (Manual) Monocytes # (Manual) Eosinophils # (Manual) Basophils # (Manual) PT INR Fibrinogen dRVVT Confirm Interp Factor V Activity POC ABG pH POC ABG pCO2 POC ABG pO2 ABG pO2 ABG HCO3 ABG Base Excess ABG Hemoglobin Oxyhemoglobin Sodium Potassium Chloride Carbon Dioxide BUN Creatinine Glucose POC Glucose 133 H 141 H Lactic Acid Calcium Phosphorus Magnesium Direct Bilirubin AST ALT Alkaline Phosphatase Lactate Dehydrogenase Troponin T C-Reactive Protein Total Protein Albumin Prealbumin Triglycerides Cholesterol LDL Cholesterol Direct HDL Cholesterol PTH Intact Urine pH Urine WBC (Auto) Urine Creatinine Urine Total Protein Fluid Total Protein Vancomycin Trough Rheumatoid Factor Complement C4 Miscellaneous Test Crossmatch 10/10/16 10/10/16 10/10/16 05:00 05:00 11:19 WBC 18.5 H RBC 2.19 L Hgb 6.4 L Hct 19.6 L* MCV MCH MCHC RDW 19.3 H Plt Count 93 L Lymph % (Auto) [place] % (Auto) Lymph # [place] # Baso # Seg Neutrophils % Seg Neuts % (Manual) Lymphocytes % (Manual) 10.0 L Monocytes % (Manual) Eosinophils % (Manual) Basophils % (Manual) Nucleated RBC % 4.0 H Seg Neutrophils # Seg Neutrophils # Man 11.3 H Lymphocytes # (Manual) Monocytes # (Manual) Eosinophils # (Manual) Basophils # (Manual) PT INR Fibrinogen dRVVT Confirm Interp Factor V Activity POC ABG pH POC ABG pCO2 POC ABG pO2 ABG pO2 ABG HCO3 ABG Base Excess ABG Hemoglobin Oxyhemoglobin Sodium Potassium 5.7 H D Chloride Carbon Dioxide 16 L BUN 94 H Creatinine 3.1 H Glucose 131 H POC Glucose 153 H Lactic Acid Calcium 8.2 L Phosphorus 5.10 H Magnesium 2.40 H Direct Bilirubin 0.3 H AST ALT < 5 L Alkaline Phosphatase 319 H Lactate Dehydrogenase Troponin T C-Reactive Protein Total Protein 5.1 L Albumin 1.0 L Prealbumin Triglycerides Cholesterol LDL Cholesterol Direct HDL Cholesterol PTH Intact Urine pH Urine WBC (Auto) Urine Creatinine Urine Total Protein Fluid Total Protein Vancomycin Trough Rheumatoid Factor Complement C4 Miscellaneous Test Crossmatch 10/10/16 10/10/16 10/11/16 17:50 23:30 04:15 WBC RBC Hgb Hct MCV MCH MCHC RDW Plt Count Lymph % (Auto) [place] % (Auto) Lymph # [place] # Baso # Seg Neutrophils % Seg Neuts % (Manual) Lymphocytes % (Manual) Monocytes % (Manual) Eosinophils % (Manual) Basophils % (Manual) Nucleated RBC % Seg Neutrophils # Seg Neutrophils # Man Lymphocytes # (Manual) Monocytes # (Manual) Eosinophils # (Manual) Basophils # (Manual) PT INR Fibrinogen dRVVT Confirm Interp Factor V Activity POC ABG pH POC ABG pCO2 POC ABG pO2 ABG pO2 ABG HCO3 ABG Base Excess ABG Hemoglobin Oxyhemoglobin Sodium Potassium Chloride 96.4 L Carbon Dioxide 21 L BUN 57 H Creatinine 2.1 H Glucose 151 H POC Glucose 146 H 141 H Lactic Acid Calcium 8.3 L Phosphorus Magnesium Direct Bilirubin AST ALT Alkaline Phosphatase Lactate Dehydrogenase Troponin T C-Reactive Protein Total Protein Albumin Prealbumin Triglycerides Cholesterol LDL Cholesterol Direct HDL Cholesterol PTH Intact Urine pH Urine WBC (Auto) Urine Creatinine Urine Total Protein Fluid Total Protein Vancomycin Trough Rheumatoid Factor Complement C4 Miscellaneous Test Crossmatch 10/11/16 10/11/16 10/11/16 04:15 04:15 05:30 WBC 28.3 H RBC 3.12 L Hgb 9.3 L Hct 28.7 L D MCV MCH MCHC RDW 17.7 H Plt Count 128 L Lymph % (Auto) [place] % (Auto) Lymph # [place] # Baso # Seg Neutrophils % Seg Neuts % (Manual) Lymphocytes % (Manual) Monocytes % (Manual) Eosinophils % (Manual) Basophils % (Manual) Nucleated RBC % Seg Neutrophils # Seg Neutrophils # Man Lymphocytes # (Manual) Monocytes # (Manual) Eosinophils # (Manual) Basophils # (Manual) PT INR Fibrinogen dRVVT Confirm Interp Factor V Activity POC ABG pH POC ABG pCO2 POC ABG pO2 ABG pO2 ABG HCO3 ABG Base Excess ABG Hemoglobin Oxyhemoglobin Sodium Potassium Chloride Carbon Dioxide BUN Creatinine Glucose POC Glucose 167 H Lactic Acid Calcium Phosphorus Magnesium Direct Bilirubin AST ALT Alkaline Phosphatase Lactate Dehydrogenase Troponin T C-Reactive Protein 15.80 H Total Protein Albumin Prealbumin Triglycerides Cholesterol LDL Cholesterol Direct HDL Cholesterol PTH Intact Urine pH Urine WBC (Auto) Urine Creatinine Urine Total Protein Fluid Total Protein Vancomycin Trough Rheumatoid Factor Complement C4 Miscellaneous Test Crossmatch 10/11/16 10/11/16 10/11/16 11:40 15:49 23:57 WBC RBC Hgb Hct MCV MCH MCHC RDW Plt Count Lymph % (Auto) [place] % (Auto) Lymph # [place] # Baso # Seg Neutrophils % Seg Neuts % (Manual) Lymphocytes % (Manual) Monocytes % (Manual) Eosinophils % (Manual) Basophils % (Manual) Nucleated RBC % Seg Neutrophils # Seg Neutrophils # Man Lymphocytes # (Manual) Monocytes # (Manual) Eosinophils # (Manual) Basophils # (Manual) PT INR Fibrinogen dRVVT Confirm Interp Factor V Activity POC ABG pH POC ABG pCO2 POC ABG pO2 ABG pO2 ABG HCO3 ABG Base Excess ABG Hemoglobin Oxyhemoglobin Sodium Potassium Chloride Carbon Dioxide BUN Creatinine Glucose POC Glucose 139 H 168 H 161 H Lactic Acid Calcium Phosphorus Magnesium Direct Bilirubin AST ALT Alkaline Phosphatase Lactate Dehydrogenase Troponin T C-Reactive Protein Total Protein Albumin Prealbumin Triglycerides Cholesterol LDL Cholesterol Direct HDL Cholesterol PTH Intact Urine pH Urine WBC (Auto) Urine Creatinine Urine Total Protein Fluid Total Protein Vancomycin Trough Rheumatoid Factor Complement C4 Miscellaneous Test Crossmatch 10/12/16 10/12/16 10/12/16 04:40 04:40 05:44 WBC 22.5 H RBC 2.88 L Hgb 8.8 L Hct 26.8 L MCV MCH MCHC RDW 17.8 H Plt Count Lymph % (Auto) [place] % (Auto) Lymph # [place] # Baso # Seg Neutrophils % Seg Neuts % (Manual) Lymphocytes % (Manual) Monocytes % (Manual) Eosinophils % (Manual) Basophils % (Manual) Nucleated RBC % Seg Neutrophils # Seg Neutrophils # Man Lymphocytes # (Manual) Monocytes # (Manual) Eosinophils # (Manual) Basophils # (Manual) PT INR Fibrinogen dRVVT Confirm Interp Factor V Activity POC ABG pH POC ABG pCO2 POC ABG pO2 ABG pO2 ABG HCO3 ABG Base Excess ABG Hemoglobin Oxyhemoglobin Sodium 134 L Potassium Chloride 93.0 L Carbon Dioxide BUN 74 H Creatinine 2.5 H Glucose 137 H POC Glucose 158 H Lactic Acid Calcium 8.2 L Phosphorus Magnesium Direct Bilirubin AST ALT Alkaline Phosphatase Lactate Dehydrogenase Troponin T C-Reactive Protein Total Protein Albumin Prealbumin Triglycerides Cholesterol LDL Cholesterol Direct HDL Cholesterol PTH Intact Urine pH Urine WBC (Auto) Urine Creatinine Urine Total Protein Fluid Total Protein Vancomycin Trough Rheumatoid Factor Complement C4 Miscellaneous Test Crossmatch 10/12/16 10/12/16 10/12/16 12:27 18:18 23:46 WBC RBC Hgb Hct MCV MCH MCHC RDW Plt Count Lymph % (Auto) [place] % (Auto) Lymph # [place] # Baso # Seg Neutrophils % Seg Neuts % (Manual) Lymphocytes % (Manual) Monocytes % (Manual) Eosinophils % (Manual) Basophils % (Manual) Nucleated RBC % Seg Neutrophils # Seg Neutrophils # Man Lymphocytes # (Manual) Monocytes # (Manual) Eosinophils # (Manual) Basophils # (Manual) PT INR Fibrinogen dRVVT Confirm Interp Factor V Activity POC ABG pH POC ABG pCO2 POC ABG pO2 ABG pO2 ABG HCO3 ABG Base Excess ABG Hemoglobin Oxyhemoglobin Sodium Potassium Chloride Carbon Dioxide BUN Creatinine Glucose POC Glucose 153 H 140 H 150 H Lactic Acid Calcium Phosphorus Magnesium Direct Bilirubin AST ALT Alkaline Phosphatase Lactate Dehydrogenase Troponin T C-Reactive Protein Total Protein Albumin Prealbumin Triglycerides Cholesterol LDL Cholesterol Direct HDL Cholesterol PTH Intact Urine pH Urine WBC (Auto) Urine Creatinine Urine Total Protein Fluid Total Protein Vancomycin Trough Rheumatoid Factor Complement C4 Miscellaneous Test Crossmatch 10/13/16 10/13/16 10/13/16 06:22 09:20 12:29 WBC RBC Hgb Hct MCV MCH MCHC RDW Plt Count Lymph % (Auto) [place] % (Auto) Lymph # [place] # Baso # Seg Neutrophils % Seg Neuts % (Manual) Lymphocytes % (Manual) Monocytes % (Manual) Eosinophils % (Manual) Basophils % (Manual) Nucleated RBC % Seg Neutrophils # Seg Neutrophils # Man Lymphocytes # (Manual) Monocytes # (Manual) Eosinophils # (Manual) Basophils # (Manual) PT INR Fibrinogen dRVVT Confirm Interp Factor V Activity POC ABG pH POC ABG pCO2 POC ABG pO2 ABG pO2 ABG HCO3 ABG Base Excess ABG Hemoglobin Oxyhemoglobin Sodium Potassium Chloride Carbon Dioxide BUN Creatinine Glucose POC Glucose 165 H 193 H Lactic Acid Calcium Phosphorus Magnesium Direct Bilirubin AST ALT Alkaline Phosphatase Lactate Dehydrogenase Troponin T C-Reactive Protein Total Protein Albumin Prealbumin Triglycerides Cholesterol LDL Cholesterol Direct HDL Cholesterol PTH Intact Urine pH Urine WBC (Auto) Urine Creatinine Urine Total Protein Fluid Total Protein Vancomycin Trough Rheumatoid Factor Complement C4 Miscellaneous Test Flexitest 1 H Crossmatch 10/13/16 10/13/16 10/13/16 18:09 Unknown Unknown WBC 23.4 H RBC 2.83 L Hgb 8.7 L Hct 26.1 L MCV MCH MCHC RDW 18.1 H Plt Count Lymph % (Auto) [place] % (Auto) Lymph # [place] # Baso # Seg Neutrophils % Seg Neuts % (Manual) Lymphocytes % (Manual) Monocytes % (Manual) Eosinophils % (Manual) Basophils % (Manual) Nucleated RBC % Seg Neutrophils # Seg Neutrophils # Man Lymphocytes # (Manual) Monocytes # (Manual) Eosinophils # (Manual) Basophils # (Manual) PT INR Fibrinogen dRVVT Confirm Interp Factor V Activity POC ABG pH POC ABG pCO2 POC ABG pO2 ABG pO2 ABG HCO3 ABG Base Excess ABG Hemoglobin Oxyhemoglobin Sodium Potassium Chloride 95.8 L Carbon Dioxide BUN 82 H Creatinine 2.6 H Glucose 152 H POC Glucose 166 H Lactic Acid Calcium Phosphorus Magnesium Direct Bilirubin AST ALT Alkaline Phosphatase Lactate Dehydrogenase Troponin T C-Reactive Protein Total Protein Albumin Prealbumin Triglycerides Cholesterol LDL Cholesterol Direct HDL Cholesterol PTH Intact Urine pH Urine WBC (Auto) Urine Creatinine Urine Total Protein Fluid Total Protein Vancomycin Trough Rheumatoid Factor Complement C4 Miscellaneous Test Crossmatch 10/14/16 10/14/16 10/14/16 05:38 06:35 08:10 WBC 20.7 H RBC 2.81 L Hgb 8.4 L Hct 27.2 L MCV MCH MCHC RDW 19.4 H Plt Count Lymph % (Auto) [place] % (Auto) Lymph # [place] # Baso # Seg Neutrophils % Seg Neuts % (Manual) Lymphocytes % (Manual) Monocytes % (Manual) Eosinophils % (Manual) Basophils % (Manual) Nucleated RBC % Seg Neutrophils # Seg Neutrophils # Man Lymphocytes # (Manual) Monocytes # (Manual) Eosinophils # (Manual) Basophils # (Manual) PT INR Fibrinogen dRVVT Confirm Interp Factor V Activity POC ABG pH POC ABG pCO2 POC ABG pO2 ABG pO2 ABG HCO3 ABG Base Excess ABG Hemoglobin Oxyhemoglobin Sodium Potassium Chloride Carbon Dioxide BUN 58 H Creatinine 1.9 H Glucose 169 H POC Glucose 195 H Lactic Acid Calcium Phosphorus Magnesium Direct Bilirubin AST ALT Alkaline Phosphatase Lactate Dehydrogenase Troponin T C-Reactive Protein Total Protein Albumin Prealbumin Triglycerides Cholesterol LDL Cholesterol Direct HDL Cholesterol PTH Intact Urine pH Urine WBC (Auto) Urine Creatinine Urine Total Protein Fluid Total Protein Vancomycin Trough Rheumatoid Factor Complement C4 Miscellaneous Test Crossmatch 10/14/16 10/14/16 10/14/16 11:44 17:13 23:28 WBC RBC Hgb Hct MCV MCH MCHC RDW Plt Count Lymph % (Auto) [place] % (Auto) Lymph # [place] # Baso # Seg Neutrophils % Seg Neuts % (Manual) Lymphocytes % (Manual) Monocytes % (Manual) Eosinophils % (Manual) Basophils % (Manual) Nucleated RBC % Seg Neutrophils # Seg Neutrophils # Man Lymphocytes # (Manual) Monocytes # (Manual) Eosinophils # (Manual) Basophils # (Manual) PT INR Fibrinogen dRVVT Confirm Interp Factor V Activity POC ABG pH POC ABG pCO2 POC ABG pO2 ABG pO2 ABG HCO3 ABG Base Excess ABG Hemoglobin Oxyhemoglobin Sodium Potassium Chloride Carbon Dioxide BUN Creatinine Glucose POC Glucose 174 H 121 H 151 H Lactic Acid Calcium Phosphorus Magnesium Direct Bilirubin AST ALT Alkaline Phosphatase Lactate Dehydrogenase Troponin T C-Reactive Protein Total Protein Albumin Prealbumin Triglycerides Cholesterol LDL Cholesterol Direct HDL Cholesterol PTH Intact Urine pH Urine WBC (Auto) Urine Creatinine Urine Total Protein Fluid Total Protein Vancomycin Trough Rheumatoid Factor Complement C4 Miscellaneous Test Crossmatch 10/15/16 10/15/16 10/15/16 05:06 12:26 17:48 WBC RBC Hgb Hct MCV MCH MCHC RDW Plt Count Lymph % (Auto) [place] % (Auto) Lymph # [place] # Baso # Seg Neutrophils % Seg Neuts % (Manual) Lymphocytes % (Manual) Monocytes % (Manual) Eosinophils % (Manual) Basophils % (Manual) Nucleated RBC % Seg Neutrophils # Seg Neutrophils # Man Lymphocytes # (Manual) Monocytes # (Manual) Eosinophils # (Manual) Basophils # (Manual) PT INR Fibrinogen dRVVT Confirm Interp Factor V Activity POC ABG pH POC ABG pCO2 POC ABG pO2 ABG pO2 ABG HCO3 ABG Base Excess ABG Hemoglobin Oxyhemoglobin Sodium Potassium Chloride Carbon Dioxide BUN Creatinine Glucose POC Glucose 151 H 149 H 153 H Lactic Acid Calcium Phosphorus Magnesium Direct Bilirubin AST ALT Alkaline Phosphatase Lactate Dehydrogenase Troponin T C-Reactive Protein Total Protein Albumin Prealbumin Triglycerides Cholesterol LDL Cholesterol Direct HDL Cholesterol PTH Intact Urine pH Urine WBC (Auto) Urine Creatinine Urine Total Protein Fluid Total Protein Vancomycin Trough Rheumatoid Factor Complement C4 Miscellaneous Test Crossmatch 10/15/16 10/15/16 10/16/16 Unknown Unknown 00:02 WBC 23.4 H RBC 2.78 L Hgb 8.5 L Hct 25.7 L MCV MCH MCHC RDW 18.7 H Plt Count Lymph % (Auto) [place] % (Auto) Lymph # [place] # Baso # Seg Neutrophils % Seg Neuts % (Manual) Lymphocytes % (Manual) Monocytes % (Manual) Eosinophils % (Manual) Basophils % (Manual) Nucleated RBC % Seg Neutrophils # Seg Neutrophils # Man Lymphocytes # (Manual) Monocytes # (Manual) Eosinophils # (Manual) Basophils # (Manual) PT INR Fibrinogen dRVVT Confirm Interp Factor V Activity POC ABG pH POC ABG pCO2 POC ABG pO2 ABG pO2 ABG HCO3 ABG Base Excess ABG Hemoglobin Oxyhemoglobin Sodium Potassium Chloride Carbon Dioxide BUN 73 H Creatinine 2.3 H Glucose 120 H POC Glucose 137 H Lactic Acid Calcium Phosphorus Magnesium Direct Bilirubin AST ALT Alkaline Phosphatase Lactate Dehydrogenase Troponin T C-Reactive Protein Total Protein Albumin Prealbumin Triglycerides Cholesterol LDL Cholesterol Direct HDL Cholesterol PTH Intact Urine pH Urine WBC (Auto) Urine Creatinine Urine Total Protein Fluid Total Protein Vancomycin Trough Rheumatoid Factor Complement C4 Miscellaneous Test Crossmatch 10/16/16 10/16/16 10/16/16 05:44 06:25 06:25 WBC 22.5 H RBC 2.76 L Hgb 8.3 L Hct 25.2 L MCV MCH MCHC RDW 18.3 H Plt Count Lymph % (Auto) [place] % (Auto) Lymph # [place] # Baso # Seg Neutrophils % Seg Neuts % (Manual) Lymphocytes % (Manual) Monocytes % (Manual) Eosinophils % (Manual) Basophils % (Manual) Nucleated RBC % Seg Neutrophils # Seg Neutrophils # Man Lymphocytes # (Manual) Monocytes # (Manual) Eosinophils # (Manual) Basophils # (Manual) PT INR Fibrinogen dRVVT Confirm Interp Factor V Activity POC ABG pH POC ABG pCO2 POC ABG pO2 ABG pO2 ABG HCO3 ABG Base Excess ABG Hemoglobin Oxyhemoglobin Sodium Potassium Chloride Carbon Dioxide BUN 92 H Creatinine 3.0 H Glucose 138 H POC Glucose 110 H Lactic Acid Calcium Phosphorus Magnesium Direct Bilirubin AST ALT Alkaline Phosphatase Lactate Dehydrogenase Troponin T C-Reactive Protein Total Protein Albumin Prealbumin Triglycerides Cholesterol LDL Cholesterol Direct HDL Cholesterol PTH Intact Urine pH Urine WBC (Auto) Urine Creatinine Urine Total Protein Fluid Total Protein Vancomycin Trough Rheumatoid Factor Complement C4 Miscellaneous Test Crossmatch 10/16/16 10/16/16 10/16/16 11:27 11:48 17:36 WBC RBC Hgb Hct MCV MCH MCHC RDW Plt Count Lymph % (Auto) [place] % (Auto) Lymph # [place] # Baso # Seg Neutrophils % Seg Neuts % (Manual) Lymphocytes % (Manual) Monocytes % (Manual) Eosinophils % (Manual) Basophils % (Manual) Nucleated RBC % Seg Neutrophils # Seg Neutrophils # Man Lymphocytes # (Manual) Monocytes # (Manual) Eosinophils # (Manual) Basophils # (Manual) PT INR Fibrinogen dRVVT Confirm Interp Factor V Activity POC ABG pH 7.582 H POC ABG pCO2 27.4 L POC ABG pO2 110 H ABG pO2 ABG HCO3 ABG Base Excess ABG Hemoglobin Oxyhemoglobin Sodium Potassium Chloride Carbon Dioxide BUN Creatinine Glucose POC Glucose 121 H 133 H Lactic Acid Calcium Phosphorus Magnesium Direct Bilirubin AST ALT Alkaline Phosphatase Lactate Dehydrogenase Troponin T C-Reactive Protein Total Protein Albumin Prealbumin Triglycerides Cholesterol LDL Cholesterol Direct HDL Cholesterol PTH Intact Urine pH Urine WBC (Auto) Urine Creatinine Urine Total Protein Fluid Total Protein Vancomycin Trough Rheumatoid Factor Complement C4 Miscellaneous Test Crossmatch 10/16/16 10/17/16 10/17/16 20:48 04:24 04:24 WBC 21.4 H RBC 2.72 L Hgb 8.0 L Hct 25.2 L MCV MCH MCHC RDW 18.0 H Plt Count Lymph % (Auto) [place] % (Auto) Lymph # [place] # Baso # Seg Neutrophils % Seg Neuts % (Manual) Lymphocytes % (Manual) Monocytes % (Manual) Eosinophils % (Manual) Basophils % (Manual) Nucleated RBC % Seg Neutrophils # Seg Neutrophils # Man Lymphocytes # (Manual) Monocytes # (Manual) Eosinophils # (Manual) Basophils # (Manual) PT INR Fibrinogen dRVVT Confirm Interp Factor V Activity POC ABG pH 7.561 H POC ABG pCO2 24.4 L POC ABG pO2 77 L ABG pO2 ABG HCO3 ABG Base Excess ABG Hemoglobin Oxyhemoglobin Sodium 148 H Potassium Chloride Carbon Dioxide BUN 104 H Creatinine 3.0 H Glucose 149 H POC Glucose Lactic Acid Calcium Phosphorus Magnesium Direct Bilirubin AST ALT Alkaline Phosphatase 138 H Lactate Dehydrogenase Troponin T C-Reactive Protein Total Protein 6.2 L Albumin 1.5 L Prealbumin Triglycerides Cholesterol LDL Cholesterol Direct HDL Cholesterol PTH Intact Urine pH Urine WBC (Auto) Urine Creatinine Urine Total Protein Fluid Total Protein Vancomycin Trough Rheumatoid Factor Complement C4 Miscellaneous Test Crossmatch 10/17/16 10/17/16 10/17/16 06:02 12:17 17:14 WBC RBC Hgb Hct MCV MCH MCHC RDW Plt Count Lymph % (Auto) [place] % (Auto) Lymph # [place] # Baso # Seg Neutrophils % Seg Neuts % (Manual) Lymphocytes % (Manual) Monocytes % (Manual) Eosinophils % (Manual) Basophils % (Manual) Nucleated RBC % Seg Neutrophils # Seg Neutrophils # Man Lymphocytes # (Manual) Monocytes # (Manual) Eosinophils # (Manual) Basophils # (Manual) PT INR Fibrinogen dRVVT Confirm Interp Factor V Activity POC ABG pH POC ABG pCO2 POC ABG pO2 ABG pO2 ABG HCO3 ABG Base Excess ABG Hemoglobin Oxyhemoglobin Sodium Potassium Chloride Carbon Dioxide BUN Creatinine Glucose POC Glucose 170 H 167 H 126 H Lactic Acid Calcium Phosphorus Magnesium Direct Bilirubin AST ALT Alkaline Phosphatase Lactate Dehydrogenase Troponin T C-Reactive Protein Total Protein Albumin Prealbumin Triglycerides Cholesterol LDL Cholesterol Direct HDL Cholesterol PTH Intact Urine pH Urine WBC (Auto) Urine Creatinine Urine Total Protein Fluid Total Protein Vancomycin Trough Rheumatoid Factor Complement C4 Miscellaneous Test Crossmatch 10/17/16 10/18/16 10/18/16 23:17 04:00 04:00 WBC 20.7 H RBC 2.47 L Hgb 7.4 L Hct 22.9 L MCV MCH MCHC RDW 17.5 H Plt Count Lymph % (Auto) [place] % (Auto) Lymph # [place] # Baso # Seg Neutrophils % Seg Neuts % (Manual) Lymphocytes % (Manual) Monocytes % (Manual) Eosinophils % (Manual) Basophils % (Manual) Nucleated RBC % Seg Neutrophils # Seg Neutrophils # Man Lymphocytes # (Manual) Monocytes # (Manual) Eosinophils # (Manual) Basophils # (Manual) PT INR Fibrinogen dRVVT Confirm Interp Factor V Activity POC ABG pH POC ABG pCO2 POC ABG pO2 ABG pO2 ABG HCO3 ABG Base Excess ABG Hemoglobin Oxyhemoglobin Sodium 149 H Potassium Chloride 107.9 H Carbon Dioxide 20 L BUN 117 H Creatinine 3.2 H Glucose 119 H POC Glucose 121 H Lactic Acid Calcium Phosphorus Magnesium Direct Bilirubin AST ALT Alkaline Phosphatase Lactate Dehydrogenase Troponin T C-Reactive Protein Total Protein Albumin Prealbumin Triglycerides Cholesterol LDL Cholesterol Direct HDL Cholesterol PTH Intact Urine pH Urine WBC (Auto) Urine Creatinine Urine Total Protein Fluid Total Protein Vancomycin Trough Rheumatoid Factor Complement C4 Miscellaneous Test Crossmatch 10/18/16 10/18/16 10/18/16 05:23 10:46 17:30 WBC RBC Hgb Hct MCV MCH MCHC RDW Plt Count Lymph % (Auto) [place] % (Auto) Lymph # [place] # Baso # Seg Neutrophils % Seg Neuts % (Manual) Lymphocytes % (Manual) Monocytes % (Manual) Eosinophils % (Manual) Basophils % (Manual) Nucleated RBC % Seg Neutrophils # Seg Neutrophils # Man Lymphocytes # (Manual) Monocytes # (Manual) Eosinophils # (Manual) Basophils # (Manual) PT INR Fibrinogen dRVVT Confirm Interp Factor V Activity POC ABG pH POC ABG pCO2 POC ABG pO2 ABG pO2 ABG HCO3 ABG Base Excess ABG Hemoglobin Oxyhemoglobin Sodium Potassium Chloride Carbon Dioxide BUN Creatinine Glucose POC Glucose 119 H 155 H 124 H Lactic Acid Calcium Phosphorus Magnesium Direct Bilirubin AST ALT Alkaline Phosphatase Lactate Dehydrogenase Troponin T C-Reactive Protein Total Protein Albumin Prealbumin Triglycerides Cholesterol LDL Cholesterol Direct HDL Cholesterol PTH Intact Urine pH Urine WBC (Auto) Urine Creatinine Urine Total Protein Fluid Total Protein Vancomycin Trough Rheumatoid Factor Complement C4 Miscellaneous Test Crossmatch 10/19/16 10/19/16 10/19/16 04:00 04:00 05:25 WBC 17.4 H RBC 2.54 L Hgb 7.7 L Hct 23.6 L MCV MCH MCHC RDW 17.3 H Plt Count Lymph % (Auto) [place] % (Auto) Lymph # [place] # Baso # Seg Neutrophils % Seg Neuts % (Manual) Lymphocytes % (Manual) Monocytes % (Manual) Eosinophils % (Manual) Basophils % (Manual) Nucleated RBC % Seg Neutrophils # Seg Neutrophils # Man Lymphocytes # (Manual) Monocytes # (Manual) Eosinophils # (Manual) Basophils # (Manual) PT INR Fibrinogen dRVVT Confirm Interp Factor V Activity POC ABG pH POC ABG pCO2 POC ABG pO2 ABG pO2 ABG HCO3 ABG Base Excess ABG Hemoglobin Oxyhemoglobin Sodium Potassium Chloride Carbon Dioxide BUN 72 H Creatinine 2.1 H Glucose 116 H POC Glucose 119 H Lactic Acid Calcium Phosphorus Magnesium Direct Bilirubin AST ALT Alkaline Phosphatase Lactate Dehydrogenase Troponin T C-Reactive Protein Total Protein Albumin Prealbumin Triglycerides Cholesterol LDL Cholesterol Direct HDL Cholesterol PTH Intact Urine pH Urine WBC (Auto) Urine Creatinine Urine Total Protein Fluid Total Protein Vancomycin Trough Rheumatoid Factor Complement C4 Miscellaneous Test Crossmatch 10/19/16 10/19/16 10/20/16 11:46 23:59 06:00 WBC RBC Hgb Hct MCV MCH MCHC RDW Plt Count Lymph % (Auto) [place] % (Auto) Lymph # [place] # Baso # Seg Neutrophils % Seg Neuts % (Manual) Lymphocytes % (Manual) Monocytes % (Manual) Eosinophils % (Manual) Basophils % (Manual) Nucleated RBC % Seg Neutrophils # Seg Neutrophils # Man Lymphocytes # (Manual) Monocytes # (Manual) Eosinophils # (Manual) Basophils # (Manual) PT INR Fibrinogen dRVVT Confirm Interp Factor V Activity POC ABG pH POC ABG pCO2 POC ABG pO2 ABG pO2 ABG HCO3 ABG Base Excess ABG Hemoglobin Oxyhemoglobin Sodium Potassium Chloride Carbon Dioxide 17 L BUN 94 H Creatinine 2.7 H Glucose POC Glucose 116 H 117 H Lactic Acid Calcium Phosphorus Magnesium Direct Bilirubin AST ALT Alkaline Phosphatase Lactate Dehydrogenase Troponin T C-Reactive Protein Total Protein Albumin Prealbumin Triglycerides Cholesterol LDL Cholesterol Direct HDL Cholesterol PTH Intact Urine pH Urine WBC (Auto) Urine Creatinine Urine Total Protein Fluid Total Protein Vancomycin Trough Rheumatoid Factor Complement C4 Miscellaneous Test Crossmatch 10/20/16 10/20/16 10/20/16 06:00 11:49 16:00 WBC 19.7 H RBC 2.51 L Hgb 7.7 L Hct 23.5 L MCV MCH MCHC RDW 17.5 H Plt Count Lymph % (Auto) [place] % (Auto) Lymph # [place] # Baso # Seg Neutrophils % Seg Neuts % (Manual) Lymphocytes % (Manual) Monocytes % (Manual) Eosinophils % (Manual) Basophils % (Manual) Nucleated RBC % Seg Neutrophils # Seg Neutrophils # Man Lymphocytes # (Manual) Monocytes # (Manual) Eosinophils # (Manual) Basophils # (Manual) PT INR Fibrinogen dRVVT Confirm Interp Factor V Activity POC ABG pH POC ABG pCO2 POC ABG pO2 ABG pO2 ABG HCO3 ABG Base Excess ABG Hemoglobin Oxyhemoglobin Sodium Potassium Chloride Carbon Dioxide BUN Creatinine Glucose POC Glucose 117 H Lactic Acid Calcium Phosphorus Magnesium Direct Bilirubin AST ALT Alkaline Phosphatase Lactate Dehydrogenase Troponin T C-Reactive Protein Total Protein Albumin Prealbumin Triglycerides Cholesterol LDL Cholesterol Direct HDL Cholesterol PTH Intact Urine pH Urine WBC (Auto) Urine Creatinine Urine Total Protein Fluid Total Protein Vancomycin Trough Rheumatoid Factor Complement C4 Miscellaneous Test Flexitest 1 H Crossmatch 10/20/16 10/20/16 10/21/16 18:36 23:39 04:00 WBC RBC Hgb Hct MCV MCH MCHC RDW Plt Count Lymph % (Auto) [place] % (Auto) Lymph # [place] # Baso # Seg Neutrophils % Seg Neuts % (Manual) Lymphocytes % (Manual) Monocytes % (Manual) Eosinophils % (Manual) Basophils % (Manual) Nucleated RBC % Seg Neutrophils # Seg Neutrophils # Man Lymphocytes # (Manual) Monocytes # (Manual) Eosinophils # (Manual) Basophils # (Manual) PT INR Fibrinogen dRVVT Confirm Interp Factor V Activity POC ABG pH POC ABG pCO2 POC ABG pO2 ABG pO2 ABG HCO3 ABG Base Excess ABG Hemoglobin Oxyhemoglobin Sodium Potassium 5.4 H D Chloride Carbon Dioxide 15 L BUN 110 H Creatinine 3.0 H Glucose POC Glucose 127 H 114 H Lactic Acid Calcium Phosphorus Magnesium Direct Bilirubin AST ALT Alkaline Phosphatase Lactate Dehydrogenase Troponin T C-Reactive Protein Total Protein Albumin Prealbumin Triglycerides Cholesterol LDL Cholesterol Direct HDL Cholesterol PTH Intact Urine pH Urine WBC (Auto) Urine Creatinine Urine Total Protein Fluid Total Protein Vancomycin Trough Rheumatoid Factor Complement C4 Miscellaneous Test Crossmatch 10/21/16 10/21/16 10/22/16 05:54 23:46 05:18 WBC RBC Hgb Hct MCV MCH MCHC RDW Plt Count Lymph % (Auto) [place] % (Auto) Lymph # [place] # Baso # Seg Neutrophils % Seg Neuts % (Manual) Lymphocytes % (Manual) Monocytes % (Manual) Eosinophils % (Manual) Basophils % (Manual) Nucleated RBC % Seg Neutrophils # Seg Neutrophils # Man Lymphocytes # (Manual) Monocytes # (Manual) Eosinophils # (Manual) Basophils # (Manual) PT INR Fibrinogen dRVVT Confirm Interp Factor V Activity POC ABG pH POC ABG pCO2 POC ABG pO2 ABG pO2 ABG HCO3 ABG Base Excess ABG Hemoglobin Oxyhemoglobin Sodium Potassium Chloride Carbon Dioxide BUN Creatinine Glucose POC Glucose 119 H 108 H 109 H Lactic Acid Calcium Phosphorus Magnesium Direct Bilirubin AST ALT Alkaline Phosphatase Lactate Dehydrogenase Troponin T C-Reactive Protein Total Protein Albumin Prealbumin Triglycerides Cholesterol LDL Cholesterol Direct HDL Cholesterol PTH Intact Urine pH Urine WBC (Auto) Urine Creatinine Urine Total Protein Fluid Total Protein Vancomycin Trough Rheumatoid Factor Complement C4 Miscellaneous Test Crossmatch 10/22/16 10/22/16 10/22/16 06:40 06:40 06:40 WBC 14.0 H RBC 2.03 L Hgb 7.0 L Hct 20.5 L MCV 98 H MCH 34 H MCHC 35 H RDW 17.8 H Plt Count Lymph % (Auto) [place] % (Auto) 9.9 H Lymph # [place] # 1.4 H Baso # 0.2 H Seg Neutrophils % 72.0 H Seg Neuts % (Manual) Lymphocytes % (Manual) Monocytes % (Manual) Eosinophils % (Manual) Basophils % (Manual) Nucleated RBC % Seg Neutrophils # 10.0 H Seg Neutrophils # Man Lymphocytes # (Manual) Monocytes # (Manual) Eosinophils # (Manual) Basophils # (Manual) PT INR Fibrinogen dRVVT Confirm Interp Factor V Activity POC ABG pH POC ABG pCO2 POC ABG pO2 ABG pO2 ABG HCO3 ABG Base Excess ABG Hemoglobin Oxyhemoglobin Sodium 130 L D Potassium Chloride 92.4 L Carbon Dioxide 20 L BUN 50 H Creatinine 1.6 H Glucose 589 H* POC Glucose Lactic Acid Calcium 7.8 L D Phosphorus Magnesium 1.60 L Direct Bilirubin AST ALT Alkaline Phosphatase Lactate Dehydrogenase Troponin T C-Reactive Protein Total Protein Albumin Prealbumin Triglycerides Cholesterol LDL Cholesterol Direct HDL Cholesterol PTH Intact Urine pH Urine WBC (Auto) Urine Creatinine Urine Total Protein Fluid Total Protein Vancomycin Trough Rheumatoid Factor Complement C4 Miscellaneous Test Crossmatch 10/22/16 10/22/16 10/22/16 11:39 16:44 23:36 WBC RBC Hgb Hct MCV MCH MCHC RDW Plt Count Lymph % (Auto) [place] % (Auto) Lymph # [place] # Baso # Seg Neutrophils % Seg Neuts % (Manual) Lymphocytes % (Manual) Monocytes % (Manual) Eosinophils % (Manual) Basophils % (Manual) Nucleated RBC % Seg Neutrophils # Seg Neutrophils # Man Lymphocytes # (Manual) Monocytes # (Manual) Eosinophils # (Manual) Basophils # (Manual) PT INR Fibrinogen dRVVT Confirm Interp Factor V Activity POC ABG pH POC ABG pCO2 POC ABG pO2 ABG pO2 ABG HCO3 ABG Base Excess ABG Hemoglobin Oxyhemoglobin Sodium Potassium Chloride Carbon Dioxide BUN Creatinine Glucose POC Glucose 142 H 163 H 123 H Lactic Acid Calcium Phosphorus Magnesium Direct Bilirubin AST ALT Alkaline Phosphatase Lactate Dehydrogenase Troponin T C-Reactive Protein Total Protein Albumin Prealbumin Triglycerides Cholesterol LDL Cholesterol Direct HDL Cholesterol PTH Intact Urine pH Urine WBC (Auto) Urine Creatinine Urine Total Protein Fluid Total Protein Vancomycin Trough Rheumatoid Factor Complement C4 Miscellaneous Test Crossmatch 10/23/16 10/23/16 10/23/16 04:58 06:00 12:12 WBC RBC Hgb Hct MCV MCH MCHC RDW Plt Count Lymph % (Auto) [place] % (Auto) Lymph # [place] # Baso # Seg Neutrophils % Seg Neuts % (Manual) Lymphocytes % (Manual) Monocytes % (Manual) Eosinophils % (Manual) Basophils % (Manual) Nucleated RBC % Seg Neutrophils # Seg Neutrophils # Man Lymphocytes # (Manual) Monocytes # (Manual) Eosinophils # (Manual) Basophils # (Manual) PT INR Fibrinogen dRVVT Confirm Interp Factor V Activity POC ABG pH POC ABG pCO2 POC ABG pO2 ABG pO2 ABG HCO3 ABG Base Excess ABG Hemoglobin Oxyhemoglobin Sodium 133 L Potassium 3.5 L Chloride 96.1 L Carbon Dioxide 18 L BUN 76 H Creatinine 2.1 H Glucose POC Glucose 133 H 138 H Lactic Acid Calcium 8.3 L Phosphorus Magnesium Direct Bilirubin AST ALT Alkaline Phosphatase Lactate Dehydrogenase Troponin T C-Reactive Protein Total Protein Albumin Prealbumin Triglycerides Cholesterol LDL Cholesterol Direct HDL Cholesterol PTH Intact Urine pH Urine WBC (Auto) Urine Creatinine Urine Total Protein Fluid Total Protein Vancomycin Trough Rheumatoid Factor Complement C4 Miscellaneous Test Crossmatch 10/23/16 10/23/16 10/24/16 16:53 23:37 04:00 WBC RBC Hgb Hct MCV MCH MCHC RDW Plt Count Lymph % (Auto) [place] % (Auto) Lymph # [place] # Baso # Seg Neutrophils % Seg Neuts % (Manual) Lymphocytes % (Manual) Monocytes % (Manual) Eosinophils % (Manual) Basophils % (Manual) Nucleated RBC % Seg Neutrophils # Seg Neutrophils # Man Lymphocytes # (Manual) Monocytes # (Manual) Eosinophils # (Manual) Basophils # (Manual) PT INR Fibrinogen dRVVT Confirm Interp Factor V Activity POC ABG pH POC ABG pCO2 POC ABG pO2 ABG pO2 ABG HCO3 ABG Base Excess ABG Hemoglobin Oxyhemoglobin Sodium 131 L Potassium Chloride 94.5 L Carbon Dioxide 19 L BUN 97 H Creatinine 2.6 H Glucose 110 H POC Glucose 125 H 123 H Lactic Acid Calcium 8.3 L Phosphorus Magnesium Direct Bilirubin AST ALT Alkaline Phosphatase Lactate Dehydrogenase Troponin T C-Reactive Protein Total Protein Albumin Prealbumin Triglycerides Cholesterol LDL Cholesterol Direct HDL Cholesterol PTH Intact Urine pH Urine WBC (Auto) Urine Creatinine Urine Total Protein Fluid Total Protein Vancomycin Trough Rheumatoid Factor Complement C4 Miscellaneous Test Crossmatch 10/24/16 10/24/16 10/24/16 07:49 11:39 17:52 WBC RBC Hgb 6.0 L Hct 19.7 L* MCV MCH MCHC RDW Plt Count Lymph % (Auto) [place] % (Auto) Lymph # [place] # Baso # Seg Neutrophils % Seg Neuts % (Manual) Lymphocytes % (Manual) Monocytes % (Manual) Eosinophils % (Manual) Basophils % (Manual) Nucleated RBC % Seg Neutrophils # Seg Neutrophils # Man Lymphocytes # (Manual) Monocytes # (Manual) Eosinophils # (Manual) Basophils # (Manual) PT INR Fibrinogen dRVVT Confirm Interp Factor V Activity POC ABG pH POC ABG pCO2 POC ABG pO2 ABG pO2 ABG HCO3 ABG Base Excess ABG Hemoglobin Oxyhemoglobin Sodium Potassium Chloride Carbon Dioxide BUN Creatinine Glucose POC Glucose 106 H 158 H Lactic Acid Calcium Phosphorus Magnesium Direct Bilirubin AST ALT Alkaline Phosphatase Lactate Dehydrogenase Troponin T C-Reactive Protein Total Protein Albumin Prealbumin Triglycerides Cholesterol LDL Cholesterol Direct HDL Cholesterol PTH Intact Urine pH Urine WBC (Auto) Urine Creatinine Urine Total Protein Fluid Total Protein Vancomycin Trough Rheumatoid Factor Complement C4 Miscellaneous Test Crossmatch 10/24/16 10/24/16 10/24/16 20:00 22:27 Unknown WBC RBC Hgb 9.4 L D Hct 27.5 L D MCV MCH MCHC RDW Plt Count Lymph % (Auto) [place] % (Auto) Lymph # [place] # Baso # Seg Neutrophils % Seg Neuts % (Manual) Lymphocytes % (Manual) Monocytes % (Manual) Eosinophils % (Manual) Basophils % (Manual) Nucleated RBC % Seg Neutrophils # Seg Neutrophils # Man Lymphocytes # (Manual) Monocytes # (Manual) Eosinophils # (Manual) Basophils # (Manual) PT INR Fibrinogen dRVVT Confirm Interp Factor V Activity POC ABG pH POC ABG pCO2 POC ABG pO2 ABG pO2 ABG HCO3 ABG Base Excess ABG Hemoglobin Oxyhemoglobin Sodium Potassium Chloride Carbon Dioxide BUN Creatinine Glucose POC Glucose 125 H Lactic Acid Calcium Phosphorus Magnesium Direct Bilirubin AST ALT Alkaline Phosphatase Lactate Dehydrogenase Troponin T C-Reactive Protein Total Protein Albumin Prealbumin Triglycerides Cholesterol LDL Cholesterol Direct HDL Cholesterol PTH Intact Urine pH Urine WBC (Auto) Urine Creatinine Urine Total Protein Fluid Total Protein Vancomycin Trough Rheumatoid Factor Complement C4 Miscellaneous Test Crossmatch See Detail 10/25/16 10/25/16 10/25/16 04:00 04:00 04:00 WBC 14.2 H RBC 2.98 L Hgb 9.0 L Hct 26.2 L MCV MCH MCHC RDW 16.6 H Plt Count Lymph % (Auto) [place] % (Auto) 10.7 H Lymph # [place] # 1.5 H Baso # Seg Neutrophils % 73.6 H Seg Neuts % (Manual) Lymphocytes % (Manual) Monocytes % (Manual) Eosinophils % (Manual) Basophils % (Manual) Nucleated RBC % Seg Neutrophils # 10.5 H Seg Neutrophils # Man Lymphocytes # (Manual) Monocytes # (Manual) Eosinophils # (Manual) Basophils # (Manual) PT INR Fibrinogen dRVVT Confirm Interp Factor V Activity POC ABG pH POC ABG pCO2 POC ABG pO2 ABG pO2 ABG HCO3 ABG Base Excess ABG Hemoglobin Oxyhemoglobin Sodium 132 L Potassium Chloride 94.7 L Carbon Dioxide BUN 51 H Creatinine 1.6 H Glucose 130 H POC Glucose Lactic Acid Calcium 8.3 L Phosphorus 1.60 L D Magnesium Direct Bilirubin AST ALT Alkaline Phosphatase Lactate Dehydrogenase Troponin T C-Reactive Protein Total Protein Albumin Prealbumin Triglycerides Cholesterol LDL Cholesterol Direct HDL Cholesterol PTH Intact Urine pH Urine WBC (Auto) Urine Creatinine Urine Total Protein Fluid Total Protein Vancomycin Trough Rheumatoid Factor Complement C4 Miscellaneous Test Crossmatch 10/25/16 10/25/16 10/25/16 04:32 11:48 17:22 WBC RBC Hgb Hct MCV MCH MCHC RDW Plt Count Lymph % (Auto) [place] % (Auto) Lymph # [place] # Baso # Seg Neutrophils % Seg Neuts % (Manual) Lymphocytes % (Manual) Monocytes % (Manual) Eosinophils % (Manual) Basophils % (Manual) Nucleated RBC % Seg Neutrophils # Seg Neutrophils # Man Lymphocytes # (Manual) Monocytes # (Manual) Eosinophils # (Manual) Basophils # (Manual) PT INR Fibrinogen dRVVT Confirm Interp Factor V Activity POC ABG pH POC ABG pCO2 POC ABG pO2 ABG pO2 ABG HCO3 ABG Base Excess ABG Hemoglobin Oxyhemoglobin Sodium Potassium Chloride Carbon Dioxide BUN Creatinine Glucose POC Glucose 124 H 171 H 120 H Lactic Acid Calcium Phosphorus Magnesium Direct Bilirubin AST ALT Alkaline Phosphatase Lactate Dehydrogenase Troponin T C-Reactive Protein Total Protein Albumin Prealbumin Triglycerides Cholesterol LDL Cholesterol Direct HDL Cholesterol PTH Intact Urine pH Urine WBC (Auto) Urine Creatinine Urine Total Protein Fluid Total Protein Vancomycin Trough Rheumatoid Factor Complement C4 Miscellaneous Test Crossmatch 10/26/16 10/26/16 10/26/16 04:54 07:06 07:06 WBC 16.9 H RBC 3.06 L Hgb 9.1 L Hct 26.9 L MCV MCH MCHC RDW 16.9 H Plt Count Lymph % (Auto) [place] % (Auto) Lymph # [place] # Baso # Seg Neutrophils % Seg Neuts % (Manual) 71.0 H Lymphocytes % (Manual) 5.0 L Monocytes % (Manual) 12.0 H Eosinophils % (Manual) Basophils % (Manual) Nucleated RBC % Seg Neutrophils # Seg Neutrophils # Man 12.0 H Lymphocytes # (Manual) 0.8 L Monocytes # (Manual) 2.0 H Eosinophils # (Manual) Basophils # (Manual) PT INR Fibrinogen dRVVT Confirm Interp Factor V Activity POC ABG pH POC ABG pCO2 POC ABG pO2 ABG pO2 ABG HCO3 ABG Base Excess ABG Hemoglobin Oxyhemoglobin Sodium 135 L Potassium Chloride 97.1 L Carbon Dioxide BUN 73 H Creatinine 2.2 H Glucose 117 H POC Glucose 123 H Lactic Acid Calcium Phosphorus 1.70 L Magnesium Direct Bilirubin AST ALT Alkaline Phosphatase Lactate Dehydrogenase Troponin T C-Reactive Protein Total Protein Albumin Prealbumin Triglycerides Cholesterol LDL Cholesterol Direct HDL Cholesterol PTH Intact Urine pH Urine WBC (Auto) Urine Creatinine Urine Total Protein Fluid Total Protein Vancomycin Trough Rheumatoid Factor Complement C4 Miscellaneous Test Crossmatch 10/26/16 10/26/16 10/26/16 12:12 17:29 23:42 WBC RBC Hgb Hct MCV MCH MCHC RDW Plt Count Lymph % (Auto) [place] % (Auto) Lymph # [place] # Baso # Seg Neutrophils % Seg Neuts % (Manual) Lymphocytes % (Manual) Monocytes % (Manual) Eosinophils % (Manual) Basophils % (Manual) Nucleated RBC % Seg Neutrophils # Seg Neutrophils # Man Lymphocytes # (Manual) Monocytes # (Manual) Eosinophils # (Manual) Basophils # (Manual) PT INR Fibrinogen dRVVT Confirm Interp Factor V Activity POC ABG pH POC ABG pCO2 POC ABG pO2 ABG pO2 ABG HCO3 ABG Base Excess ABG Hemoglobin Oxyhemoglobin Sodium Potassium Chloride Carbon Dioxide BUN Creatinine Glucose POC Glucose 126 H 161 H 118 H Lactic Acid Calcium Phosphorus Magnesium Direct Bilirubin AST ALT Alkaline Phosphatase Lactate Dehydrogenase Troponin T C-Reactive Protein Total Protein Albumin Prealbumin Triglycerides Cholesterol LDL Cholesterol Direct HDL Cholesterol PTH Intact Urine pH Urine WBC (Auto) Urine Creatinine Urine Total Protein Fluid Total Protein Vancomycin Trough Rheumatoid Factor Complement C4 Miscellaneous Test Crossmatch 10/27/16 10/27/16 10/27/16 05:03 06:30 06:30 WBC 13.9 H RBC 3.09 L Hgb 9.2 L Hct 27.5 L MCV MCH MCHC RDW 17.0 H Plt Count Lymph % (Auto) [place] % (Auto) Lymph # [place] # Baso # Seg Neutrophils % Seg Neuts % (Manual) 78.0 H Lymphocytes % (Manual) Monocytes % (Manual) Eosinophils % (Manual) Basophils % (Manual) Nucleated RBC % 2.0 H Seg Neutrophils # Seg Neutrophils # Man 10.8 H Lymphocytes # (Manual) Monocytes # (Manual) 1.0 H Eosinophils # (Manual) Basophils # (Manual) PT INR Fibrinogen dRVVT Confirm Interp Factor V Activity POC ABG pH POC ABG pCO2 POC ABG pO2 ABG pO2 ABG HCO3 ABG Base Excess ABG Hemoglobin Oxyhemoglobin Sodium Potassium Chloride Carbon Dioxide BUN 40 H Creatinine 1.5 H Glucose 135 H POC Glucose 107 H Lactic Acid Calcium 8.3 L Phosphorus 1.30 L D Magnesium Direct Bilirubin AST ALT Alkaline Phosphatase Lactate Dehydrogenase Troponin T C-Reactive Protein Total Protein Albumin Prealbumin Triglycerides Cholesterol LDL Cholesterol Direct HDL Cholesterol PTH Intact Urine pH Urine WBC (Auto) Urine Creatinine Urine Total Protein Fluid Total Protein Vancomycin Trough Rheumatoid Factor Complement C4 Miscellaneous Test Crossmatch 10/27/16 10/27/16 10/27/16 13:27 18:07 23:40 WBC RBC Hgb Hct MCV MCH MCHC RDW Plt Count Lymph % (Auto) [place] % (Auto) Lymph # [place] # Baso # Seg Neutrophils % Seg Neuts % (Manual) Lymphocytes % (Manual) Monocytes % (Manual) Eosinophils % (Manual) Basophils % (Manual) Nucleated RBC % Seg Neutrophils # Seg Neutrophils # Man Lymphocytes # (Manual) Monocytes # (Manual) Eosinophils # (Manual) Basophils # (Manual) PT INR Fibrinogen dRVVT Confirm Interp Factor V Activity POC ABG pH POC ABG pCO2 POC ABG pO2 ABG pO2 ABG HCO3 ABG Base Excess ABG Hemoglobin Oxyhemoglobin Sodium Potassium Chloride Carbon Dioxide BUN Creatinine Glucose POC Glucose 117 H 121 H 118 H Lactic Acid Calcium Phosphorus Magnesium Direct Bilirubin AST ALT Alkaline Phosphatase Lactate Dehydrogenase Troponin T C-Reactive Protein Total Protein Albumin Prealbumin Triglycerides Cholesterol LDL Cholesterol Direct HDL Cholesterol PTH Intact Urine pH Urine WBC (Auto) Urine Creatinine Urine Total Protein Fluid Total Protein Vancomycin Trough Rheumatoid Factor Complement C4 Miscellaneous Test Crossmatch 10/28/16 10/28/16 10/28/16 05:48 06:45 06:45 WBC 14.7 H RBC 3.05 L Hgb 9.0 L Hct 26.9 L MCV MCH MCHC RDW 16.8 H Plt Count Lymph % (Auto) 8.2 L [place] % (Auto) 8.4 H Lymph # [place] # 1.2 H Baso # Seg Neutrophils % 81.9 H Seg Neuts % (Manual) Lymphocytes % (Manual) Monocytes % (Manual) Eosinophils % (Manual) Basophils % (Manual) Nucleated RBC % Seg Neutrophils # 12.1 H Seg Neutrophils # Man Lymphocytes # (Manual) Monocytes # (Manual) Eosinophils # (Manual) Basophils # (Manual) PT INR Fibrinogen dRVVT Confirm Interp Factor V Activity POC ABG pH POC ABG pCO2 POC ABG pO2 ABG pO2 ABG HCO3 ABG Base Excess ABG Hemoglobin Oxyhemoglobin Sodium Potassium Chloride Carbon Dioxide BUN 60 H Creatinine 1.9 H Glucose 120 H POC Glucose 114 H Lactic Acid Calcium Phosphorus Magnesium Direct Bilirubin AST ALT Alkaline Phosphatase Lactate Dehydrogenase Troponin T C-Reactive Protein Total Protein Albumin Prealbumin Triglycerides Cholesterol LDL Cholesterol Direct HDL Cholesterol PTH Intact Urine pH Urine WBC (Auto) Urine Creatinine Urine Total Protein Fluid Total Protein Vancomycin Trough Rheumatoid Factor Complement C4 Miscellaneous Test Crossmatch 10/28/16 10/28/16 10/29/16 17:08 23:50 05:10 WBC RBC Hgb Hct MCV MCH MCHC RDW Plt Count Lymph % (Auto) [place] % (Auto) Lymph # [place] # Baso # Seg Neutrophils % Seg Neuts % (Manual) Lymphocytes % (Manual) Monocytes % (Manual) Eosinophils % (Manual) Basophils % (Manual) Nucleated RBC % Seg Neutrophils # Seg Neutrophils # Man Lymphocytes # (Manual) Monocytes # (Manual) Eosinophils # (Manual) Basophils # (Manual) PT INR Fibrinogen dRVVT Confirm Interp Factor V Activity POC ABG pH POC ABG pCO2 POC ABG pO2 ABG pO2 ABG HCO3 ABG Base Excess ABG Hemoglobin Oxyhemoglobin Sodium Potassium Chloride Carbon Dioxide BUN Creatinine Glucose POC Glucose 109 H 110 H 124 H Lactic Acid Calcium Phosphorus Magnesium Direct Bilirubin AST ALT Alkaline Phosphatase Lactate Dehydrogenase Troponin T C-Reactive Protein Total Protein Albumin Prealbumin Triglycerides Cholesterol LDL Cholesterol Direct HDL Cholesterol PTH Intact Urine pH Urine WBC (Auto) Urine Creatinine Urine Total Protein Fluid Total Protein Vancomycin Trough Rheumatoid Factor Complement C4 Miscellaneous Test Crossmatch 10/29/16 10/29/16 10/29/16 07:45 07:45 12:19 WBC 14.7 H RBC 3.15 L Hgb 9.3 L Hct 28.9 L MCV MCH MCHC RDW 17.0 H Plt Count Lymph % (Auto) 11.9 L [place] % (Auto) 8.6 H Lymph # [place] # 1.3 H Baso # Seg Neutrophils % 78.1 H Seg Neuts % (Manual) Lymphocytes % (Manual) Monocytes % (Manual) Eosinophils % (Manual) Basophils % (Manual) Nucleated RBC % Seg Neutrophils # 11.4 H Seg Neutrophils # Man Lymphocytes # (Manual) Monocytes # (Manual) Eosinophils # (Manual) Basophils # (Manual) PT INR Fibrinogen dRVVT Confirm Interp Factor V Activity POC ABG pH POC ABG pCO2 POC ABG pO2 ABG pO2 ABG HCO3 ABG Base Excess ABG Hemoglobin Oxyhemoglobin Sodium Potassium 5.1 H Chloride Carbon Dioxide 19 L BUN 78 H Creatinine 2.2 H Glucose 116 H POC Glucose 118 H Lactic Acid Calcium Phosphorus Magnesium Direct Bilirubin AST ALT Alkaline Phosphatase Lactate Dehydrogenase Troponin T C-Reactive Protein Total Protein Albumin Prealbumin Triglycerides Cholesterol LDL Cholesterol Direct HDL Cholesterol PTH Intact Urine pH Urine WBC (Auto) Urine Creatinine Urine Total Protein Fluid Total Protein Vancomycin Trough Rheumatoid Factor Complement C4 Miscellaneous Test Crossmatch 10/29/16 10/30/16 10/30/16 17:49 01:52 03:28 WBC RBC Hgb Hct MCV MCH MCHC RDW Plt Count Lymph % (Auto) [place] % (Auto) Lymph # [place] # Baso # Seg Neutrophils % Seg Neuts % (Manual) Lymphocytes % (Manual) Monocytes % (Manual) Eosinophils % (Manual) Basophils % (Manual) Nucleated RBC % Seg Neutrophils # Seg Neutrophils # Man Lymphocytes # (Manual) Monocytes # (Manual) Eosinophils # (Manual) Basophils # (Manual) PT INR Fibrinogen dRVVT Confirm Interp Factor V Activity POC ABG pH POC ABG pCO2 POC ABG pO2 ABG pO2 ABG HCO3 ABG Base Excess ABG Hemoglobin Oxyhemoglobin Sodium Potassium 5.4 H Chloride 97.5 L Carbon Dioxide 19 L BUN 90 H Creatinine 2.5 H Glucose POC Glucose 120 H 129 H Lactic Acid Calcium Phosphorus 5.20 H Magnesium Direct Bilirubin AST ALT Alkaline Phosphatase Lactate Dehydrogenase Troponin T C-Reactive Protein Total Protein Albumin Prealbumin Triglycerides Cholesterol LDL Cholesterol Direct HDL Cholesterol PTH Intact Urine pH Urine WBC (Auto) Urine Creatinine Urine Total Protein Fluid Total Protein Vancomycin Trough Rheumatoid Factor Complement C4 Miscellaneous Test Crossmatch 10/30/16 10/30/16 10/30/16 03:28 08:19 08:19 WBC 11.6 H 15.9 H RBC 2.75 L 2.82 L Hgb 7.9 L 8.3 L Hct 24.2 L 25.2 L MCV MCH MCHC RDW 16.7 H 17.2 H Plt Count Lymph % (Auto) [place] % (Auto) 9.8 H Lymph # [place] # 1.1 H Baso # Seg Neutrophils % 74.2 H Seg Neuts % (Manual) Lymphocytes % (Manual) Monocytes % (Manual) Eosinophils % (Manual) Basophils % (Manual) Nucleated RBC % Seg Neutrophils # 8.6 H Seg Neutrophils # Man Lymphocytes # (Manual) Monocytes # (Manual) Eosinophils # (Manual) Basophils # (Manual) PT INR Fibrinogen dRVVT Confirm Interp Factor V Activity POC ABG pH POC ABG pCO2 POC ABG pO2 ABG pO2 ABG HCO3 ABG Base Excess ABG Hemoglobin Oxyhemoglobin Sodium Potassium 5.3 H Chloride 97.4 L Carbon Dioxide 19 L BUN 93 H Creatinine 2.6 H Glucose POC Glucose Lactic Acid Calcium Phosphorus Magnesium Direct Bilirubin AST ALT Alkaline Phosphatase Lactate Dehydrogenase Troponin T C-Reactive Protein Total Protein Albumin Prealbumin Triglycerides Cholesterol LDL Cholesterol Direct HDL Cholesterol PTH Intact Urine pH Urine WBC (Auto) Urine Creatinine Urine Total Protein Fluid Total Protein Vancomycin Trough Rheumatoid Factor Complement C4 Miscellaneous Test Crossmatch 09/10/17 09/10/17 09/11/17 17:11 23:56 00:40 WBC RBC Hgb Hct MCV MCH MCHC RDW Plt Count Lymph % (Auto) [place] % (Auto) Lymph # [place] # Baso # Seg Neutrophils % Seg Neuts % (Manual) Lymphocytes % (Manual) Monocytes % (Manual) Eosinophils % (Manual) Basophils % (Manual) Nucleated RBC % Seg Neutrophils # Seg Neutrophils # Man Lymphocytes # (Manual) Monocytes # (Manual) Eosinophils # (Manual) Basophils # (Manual) PT INR Fibrinogen dRVVT Confirm Interp Factor V Activity POC ABG pH POC ABG pCO2 POC ABG pO2 ABG pO2 ABG HCO3 ABG Base Excess ABG Hemoglobin Oxyhemoglobin Sodium Potassium Chloride Carbon Dioxide BUN Creatinine Glucose POC Glucose 106 H 117 H 120 H Lactic Acid Calcium Phosphorus Magnesium Direct Bilirubin AST ALT Alkaline Phosphatase Lactate Dehydrogenase Troponin T C-Reactive Protein Total Protein Albumin Prealbumin Triglycerides Cholesterol LDL Cholesterol Direct HDL Cholesterol PTH Intact Urine pH Urine WBC (Auto) Urine Creatinine Urine Total Protein Fluid Total Protein Vancomycin Trough Rheumatoid Factor Complement C4 Miscellaneous Test Crossmatch 10/31/16 10/31/16 10/31/16 05:43 07:15 07:15 WBC 12.1 H RBC 2.63 L Hgb 7.7 L Hct 23.3 L MCV MCH MCHC RDW 16.7 H Plt Count Lymph % (Auto) 11.7 L [place] % (Auto) 7.7 H Lymph # [place] # 0.9 H Baso # Seg Neutrophils % 78.0 H Seg Neuts % (Manual) Lymphocytes % (Manual) Monocytes % (Manual) Eosinophils % (Manual) Basophils % (Manual) Nucleated RBC % Seg Neutrophils # 9.4 H Seg Neutrophils # Man Lymphocytes # (Manual) Monocytes # (Manual) Eosinophils # (Manual) Basophils # (Manual) PT INR Fibrinogen dRVVT Confirm Interp Factor V Activity POC ABG pH POC ABG pCO2 POC ABG pO2 ABG pO2 ABG HCO3 ABG Base Excess ABG Hemoglobin Oxyhemoglobin Sodium Potassium Chloride 96.4 L Carbon Dioxide 21 L BUN 99 H Creatinine 2.6 H Glucose 144 H POC Glucose 125 H Lactic Acid Calcium Phosphorus 4.80 H Magnesium Direct Bilirubin AST ALT Alkaline Phosphatase Lactate Dehydrogenase Troponin T C-Reactive Protein Total Protein Albumin Prealbumin Triglycerides Cholesterol LDL Cholesterol Direct HDL Cholesterol PTH Intact Urine pH Urine WBC (Auto) Urine Creatinine Urine Total Protein Fluid Total Protein Vancomycin Trough Rheumatoid Factor Complement C4 Miscellaneous Test Crossmatch 10/31/16 10/31/16 11/01/16 11:46 18:34 00:20 WBC RBC Hgb Hct MCV MCH MCHC RDW Plt Count Lymph % (Auto) [place] % (Auto) Lymph # [place] # Baso # Seg Neutrophils % Seg Neuts % (Manual) Lymphocytes % (Manual) Monocytes % (Manual) Eosinophils % (Manual) Basophils % (Manual) Nucleated RBC % Seg Neutrophils # Seg Neutrophils # Man Lymphocytes # (Manual) Monocytes # (Manual) Eosinophils # (Manual) Basophils # (Manual) PT INR Fibrinogen dRVVT Confirm Interp Factor V Activity POC ABG pH POC ABG pCO2 POC ABG pO2 ABG pO2 ABG HCO3 ABG Base Excess ABG Hemoglobin Oxyhemoglobin Sodium Potassium Chloride Carbon Dioxide BUN Creatinine Glucose POC Glucose 159 H 140 H 132 H Lactic Acid Calcium Phosphorus Magnesium Direct Bilirubin AST ALT Alkaline Phosphatase Lactate Dehydrogenase Troponin T C-Reactive Protein Total Protein Albumin Prealbumin Triglycerides Cholesterol LDL Cholesterol Direct HDL Cholesterol PTH Intact Urine pH Urine WBC (Auto) Urine Creatinine Urine Total Protein Fluid Total Protein Vancomycin Trough Rheumatoid Factor Complement C4 Miscellaneous Test Crossmatch 11/01/16 11/01/16 11/01/16 04:55 04:55 06:11 WBC 11.2 H RBC 2.68 L Hgb 7.5 L Hct 23.7 L MCV MCH MCHC RDW 16.1 H Plt Count Lymph % (Auto) [place] % (Auto) 9.8 H Lymph # [place] # 1.1 H Baso # Seg Neutrophils % 70.8 H Seg Neuts % (Manual) Lymphocytes % (Manual) Monocytes % (Manual) Eosinophils % (Manual) Basophils % (Manual) Nucleated RBC % Seg Neutrophils # 7.9 H Seg Neutrophils # Man Lymphocytes # (Manual) Monocytes # (Manual) Eosinophils # (Manual) Basophils # (Manual) PT INR Fibrinogen dRVVT Confirm Interp Factor V Activity POC ABG pH POC ABG pCO2 POC ABG pO2 ABG pO2 ABG HCO3 ABG Base Excess ABG Hemoglobin Oxyhemoglobin Sodium Potassium 3.3 L D Chloride Carbon Dioxide BUN 61 H Creatinine 1.9 H Glucose 114 H POC Glucose 115 H Lactic Acid Calcium Phosphorus 1.80 L D Magnesium Direct Bilirubin AST ALT Alkaline Phosphatase Lactate Dehydrogenase Troponin T C-Reactive Protein Total Protein Albumin Prealbumin Triglycerides Cholesterol LDL Cholesterol Direct HDL Cholesterol PTH Intact Urine pH Urine WBC (Auto) Urine Creatinine Urine Total Protein Fluid Total Protein Vancomycin Trough Rheumatoid Factor Complement C4 Miscellaneous Test Crossmatch 11/01/16 11/01/16 11/01/16 12:29 18:23 23:58 WBC RBC Hgb Hct MCV MCH MCHC RDW Plt Count Lymph % (Auto) [place] % (Auto) Lymph # [place] # Baso # Seg Neutrophils % Seg Neuts % (Manual) Lymphocytes % (Manual) Monocytes % (Manual) Eosinophils % (Manual) Basophils % (Manual) Nucleated RBC % Seg Neutrophils # Seg Neutrophils # Man Lymphocytes # (Manual) Monocytes # (Manual) Eosinophils # (Manual) Basophils # (Manual) PT INR Fibrinogen dRVVT Confirm Interp Factor V Activity POC ABG pH POC ABG pCO2 POC ABG pO2 ABG pO2 ABG HCO3 ABG Base Excess ABG Hemoglobin Oxyhemoglobin Sodium Potassium Chloride Carbon Dioxide BUN Creatinine Glucose POC Glucose 142 H 143 H 128 H Lactic Acid Calcium Phosphorus Magnesium Direct Bilirubin AST ALT Alkaline Phosphatase Lactate Dehydrogenase Troponin T C-Reactive Protein Total Protein Albumin Prealbumin Triglycerides Cholesterol LDL Cholesterol Direct HDL Cholesterol PTH Intact Urine pH Urine WBC (Auto) Urine Creatinine Urine Total Protein Fluid Total Protein Vancomycin Trough Rheumatoid Factor Complement C4 Miscellaneous Test Crossmatch 11/02/16 11/02/16 11/02/16 04:16 05:29 11:58 WBC RBC Hgb Hct MCV MCH MCHC RDW Plt Count Lymph % (Auto) [place] % (Auto) Lymph # [place] # Baso # Seg Neutrophils % Seg Neuts % (Manual) Lymphocytes % (Manual) Monocytes % (Manual) Eosinophils % (Manual) Basophils % (Manual) Nucleated RBC % Seg Neutrophils # Seg Neutrophils # Man Lymphocytes # (Manual) Monocytes # (Manual) Eosinophils # (Manual) Basophils # (Manual) PT INR Fibrinogen dRVVT Confirm Interp Factor V Activity POC ABG pH POC ABG pCO2 POC ABG pO2 ABG pO2 ABG HCO3 ABG Base Excess ABG Hemoglobin Oxyhemoglobin Sodium Potassium 3.1 L Chloride Carbon Dioxide BUN 73 H Creatinine 2.3 H Glucose 112 H POC Glucose 135 H 149 H Lactic Acid Calcium Phosphorus Magnesium Direct Bilirubin AST ALT Alkaline Phosphatase Lactate Dehydrogenase Troponin T C-Reactive Protein Total Protein Albumin Prealbumin Triglycerides Cholesterol LDL Cholesterol Direct HDL Cholesterol PTH Intact Urine pH Urine WBC (Auto) Urine Creatinine Urine Total Protein Fluid Total Protein Vancomycin Trough Rheumatoid Factor Complement C4 Miscellaneous Test Crossmatch 11/02/16 11/02/16 11/03/16 17:42 22:54 06:00 WBC RBC Hgb Hct MCV MCH MCHC RDW Plt Count Lymph % (Auto) [place] % (Auto) Lymph # [place] # Baso # Seg Neutrophils % Seg Neuts % (Manual) Lymphocytes % (Manual) Monocytes % (Manual) Eosinophils % (Manual) Basophils % (Manual) Nucleated RBC % Seg Neutrophils # Seg Neutrophils # Man Lymphocytes # (Manual) Monocytes # (Manual) Eosinophils # (Manual) Basophils # (Manual) PT INR Fibrinogen dRVVT Confirm Interp Factor V Activity POC ABG pH POC ABG pCO2 POC ABG pO2 ABG pO2 ABG HCO3 ABG Base Excess ABG Hemoglobin Oxyhemoglobin Sodium Potassium Chloride 96.7 L Carbon Dioxide BUN 41 H Creatinine 1.5 H Glucose 145 H POC Glucose 182 H 115 H Lactic Acid Calcium Phosphorus 1.60 L D Magnesium 1.50 L Direct Bilirubin AST ALT Alkaline Phosphatase Lactate Dehydrogenase Troponin T C-Reactive Protein Total Protein Albumin Prealbumin Triglycerides Cholesterol LDL Cholesterol Direct HDL Cholesterol PTH Intact Urine pH Urine WBC (Auto) Urine Creatinine Urine Total Protein Fluid Total Protein Vancomycin Trough Rheumatoid Factor Complement C4 Miscellaneous Test Crossmatch 11/03/16 11/03/16 11/03/16 11:53 17:45 23:37 WBC RBC Hgb Hct MCV MCH MCHC RDW Plt Count Lymph % (Auto) [place] % (Auto) Lymph # [place] # Baso # Seg Neutrophils % Seg Neuts % (Manual) Lymphocytes % (Manual) Monocytes % (Manual) Eosinophils % (Manual) Basophils % (Manual) Nucleated RBC % Seg Neutrophils # Seg Neutrophils # Man Lymphocytes # (Manual) Monocytes # (Manual) Eosinophils # (Manual) Basophils # (Manual) PT INR Fibrinogen dRVVT Confirm Interp Factor V Activity POC ABG pH POC ABG pCO2 POC ABG pO2 ABG pO2 ABG HCO3 ABG Base Excess ABG Hemoglobin Oxyhemoglobin Sodium Potassium Chloride Carbon Dioxide BUN Creatinine Glucose POC Glucose 131 H 134 H 113 H Lactic Acid Calcium Phosphorus Magnesium Direct Bilirubin AST ALT Alkaline Phosphatase Lactate Dehydrogenase Troponin T C-Reactive Protein Total Protein Albumin Prealbumin Triglycerides Cholesterol LDL Cholesterol Direct HDL Cholesterol PTH Intact Urine pH Urine WBC (Auto) Urine Creatinine Urine Total Protein Fluid Total Protein Vancomycin Trough Rheumatoid Factor Complement C4 Miscellaneous Test Crossmatch 11/04/16 11/04/16 11/04/16 05:41 06:00 12:10 WBC RBC Hgb Hct MCV MCH MCHC RDW Plt Count Lymph % (Auto) [place] % (Auto) Lymph # [place] # Baso # Seg Neutrophils % Seg Neuts % (Manual) Lymphocytes % (Manual) Monocytes % (Manual) Eosinophils % (Manual) Basophils % (Manual) Nucleated RBC % Seg Neutrophils # Seg Neutrophils # Man Lymphocytes # (Manual) Monocytes # (Manual) Eosinophils # (Manual) Basophils # (Manual) PT INR Fibrinogen dRVVT Confirm Interp Factor V Activity POC ABG pH POC ABG pCO2 POC ABG pO2 ABG pO2 ABG HCO3 ABG Base Excess ABG Hemoglobin Oxyhemoglobin Sodium Potassium Chloride 96.7 L Carbon Dioxide BUN 52 H Creatinine 1.9 H Glucose 126 H POC Glucose 137 H 191 H Lactic Acid Calcium Phosphorus Magnesium Direct Bilirubin AST ALT Alkaline Phosphatase Lactate Dehydrogenase Troponin T C-Reactive Protein Total Protein Albumin Prealbumin Triglycerides Cholesterol LDL Cholesterol Direct HDL Cholesterol PTH Intact Urine pH Urine WBC (Auto) Urine Creatinine Urine Total Protein Fluid Total Protein Vancomycin Trough Rheumatoid Factor Complement C4 Miscellaneous Test Crossmatch 11/04/16 11/05/16 11/05/16 22:57 03:10 05:10 WBC RBC Hgb Hct MCV MCH MCHC RDW Plt Count Lymph % (Auto) [place] % (Auto) Lymph # [place] # Baso # Seg Neutrophils % Seg Neuts % (Manual) Lymphocytes % (Manual) Monocytes % (Manual) Eosinophils % (Manual) Basophils % (Manual) Nucleated RBC % Seg Neutrophils # Seg Neutrophils # Man Lymphocytes # (Manual) Monocytes # (Manual) Eosinophils # (Manual) Basophils # (Manual) PT INR Fibrinogen dRVVT Confirm Interp Factor V Activity POC ABG pH POC ABG pCO2 POC ABG pO2 ABG pO2 ABG HCO3 ABG Base Excess ABG Hemoglobin Oxyhemoglobin Sodium 136 L Potassium Chloride 97.2 L Carbon Dioxide BUN 32 H Creatinine 1.3 H Glucose 123 H POC Glucose 125 H 108 H Lactic Acid Calcium 7.8 L Phosphorus Magnesium Direct Bilirubin AST ALT Alkaline Phosphatase Lactate Dehydrogenase Troponin T C-Reactive Protein Total Protein Albumin Prealbumin Triglycerides Cholesterol LDL Cholesterol Direct HDL Cholesterol PTH Intact Urine pH Urine WBC (Auto) Urine Creatinine Urine Total Protein Fluid Total Protein Vancomycin Trough Rheumatoid Factor Complement C4 Miscellaneous Test Crossmatch 11/05/16 11/05/16 11/05/16 12:23 13:09 13:25 WBC RBC Hgb Hct MCV MCH MCHC RDW Plt Count Lymph % (Auto) [place] % (Auto) Lymph # [place] # Baso # Seg Neutrophils % Seg Neuts % (Manual) Lymphocytes % (Manual) Monocytes % (Manual) Eosinophils % (Manual) Basophils % (Manual) Nucleated RBC % Seg Neutrophils # Seg Neutrophils # Man Lymphocytes # (Manual) Monocytes # (Manual) Eosinophils # (Manual) Basophils # (Manual) PT INR Fibrinogen dRVVT Confirm Interp Factor V Activity POC ABG pH POC ABG pCO2 POC ABG pO2 ABG pO2 ABG HCO3 ABG Base Excess ABG Hemoglobin Oxyhemoglobin Sodium Potassium Chloride Carbon Dioxide BUN Creatinine Glucose POC Glucose 124 H Lactic Acid Calcium Phosphorus Magnesium Direct Bilirubin AST ALT Alkaline Phosphatase Lactate Dehydrogenase Troponin T C-Reactive Protein 11.40 H Total Protein Albumin Prealbumin Triglycerides Cholesterol LDL Cholesterol Direct HDL Cholesterol PTH Intact Urine pH 9.0 H Urine WBC (Auto) Urine Creatinine Urine Total Protein Fluid Total Protein Vancomycin Trough Rheumatoid Factor Complement C4 Miscellaneous Test Crossmatch 11/05/16 11/05/16 11/05/16 13:25 17:54 23:42 WBC RBC Hgb Hct MCV MCH MCHC RDW Plt Count Lymph % (Auto) [place] % (Auto) Lymph # [place] # Baso # Seg Neutrophils % Seg Neuts % (Manual) Lymphocytes % (Manual) Monocytes % (Manual) Eosinophils % (Manual) Basophils % (Manual) Nucleated RBC % Seg Neutrophils # Seg Neutrophils # Man Lymphocytes # (Manual) Monocytes # (Manual) Eosinophils # (Manual) Basophils # (Manual) PT INR Fibrinogen dRVVT Confirm Interp Factor V Activity POC ABG pH POC ABG pCO2 POC ABG pO2 ABG pO2 ABG HCO3 ABG Base Excess ABG Hemoglobin Oxyhemoglobin Sodium Potassium Chloride Carbon Dioxide BUN Creatinine Glucose POC Glucose 114 H 134 H Lactic Acid Calcium Phosphorus Magnesium Direct Bilirubin AST ALT Alkaline Phosphatase Lactate Dehydrogenase Troponin T C-Reactive Protein Total Protein Albumin Prealbumin Triglycerides Cholesterol LDL Cholesterol Direct HDL Cholesterol PTH Intact Urine pH Urine WBC (Auto) Urine Creatinine Urine Total Protein Fluid Total Protein Vancomycin Trough Rheumatoid Factor Complement C4 Miscellaneous Test Flexitest 1 H Crossmatch 11/06/16 11/06/16 11/06/16 04:56 06:25 06:25 WBC RBC 2.50 L Hgb 7.3 L Hct 22.5 L MCV MCH MCHC RDW 16.9 H Plt Count Lymph % (Auto) [place] % (Auto) 10.5 H Lymph # [place] # 1.1 H Baso # Seg Neutrophils % Seg Neuts % (Manual) Lymphocytes % (Manual) Monocytes % (Manual) Eosinophils % (Manual) Basophils % (Manual) Nucleated RBC % Seg Neutrophils # Seg Neutrophils # Man Lymphocytes # (Manual) Monocytes # (Manual) Eosinophils # (Manual) Basophils # (Manual) PT INR Fibrinogen dRVVT Confirm Interp Factor V Activity POC ABG pH POC ABG pCO2 POC ABG pO2 ABG pO2 ABG HCO3 ABG Base Excess ABG Hemoglobin Oxyhemoglobin Sodium Potassium 5.1 H Chloride 95.9 L Carbon Dioxide BUN 52 H Creatinine 1.8 H Glucose 117 H POC Glucose 120 H Lactic Acid Calcium Phosphorus Magnesium Direct Bilirubin AST 103 H ALT 77 H Alkaline Phosphatase 285 H Lactate Dehydrogenase Troponin T C-Reactive Protein Total Protein 6.2 L Albumin 1.8 L Prealbumin 0.180 L Triglycerides Cholesterol LDL Cholesterol Direct HDL Cholesterol PTH Intact Urine pH Urine WBC (Auto) Urine Creatinine Urine Total Protein Fluid Total Protein Vancomycin Trough Rheumatoid Factor Complement C4 Miscellaneous Test Crossmatch 11/06/16 11/06/16 11/06/16 11:56 17:14 23:52 WBC RBC Hgb Hct MCV MCH MCHC RDW Plt Count Lymph % (Auto) [place] % (Auto) Lymph # [place] # Baso # Seg Neutrophils % Seg Neuts % (Manual) Lymphocytes % (Manual) Monocytes % (Manual) Eosinophils % (Manual) Basophils % (Manual) Nucleated RBC % Seg Neutrophils # Seg Neutrophils # Man Lymphocytes # (Manual) Monocytes # (Manual) Eosinophils # (Manual) Basophils # (Manual) PT INR Fibrinogen dRVVT Confirm Interp Factor V Activity POC ABG pH POC ABG pCO2 POC ABG pO2 ABG pO2 ABG HCO3 ABG Base Excess ABG Hemoglobin Oxyhemoglobin Sodium Potassium Chloride Carbon Dioxide BUN Creatinine Glucose POC Glucose 141 H 125 H 130 H Lactic Acid Calcium Phosphorus Magnesium Direct Bilirubin AST ALT Alkaline Phosphatase Lactate Dehydrogenase Troponin T C-Reactive Protein Total Protein Albumin Prealbumin Triglycerides Cholesterol LDL Cholesterol Direct HDL Cholesterol PTH Intact Urine pH Urine WBC (Auto) Urine Creatinine Urine Total Protein Fluid Total Protein Vancomycin Trough Rheumatoid Factor Complement C4 Miscellaneous Test Crossmatch 11/07/16 11/07/16 11/07/16 06:30 06:30 09:37 WBC RBC 2.18 L Hgb 6.3 L Hct 19.7 L* MCV MCH MCHC RDW 16.8 H Plt Count Lymph % (Auto) [place] % (Auto) 10.0 H Lymph # [place] # 1.0 H Baso # Seg Neutrophils % Seg Neuts % (Manual) Lymphocytes % (Manual) Monocytes % (Manual) Eosinophils % (Manual) Basophils % (Manual) Nucleated RBC % Seg Neutrophils # Seg Neutrophils # Man Lymphocytes # (Manual) Monocytes # (Manual) Eosinophils # (Manual) Basophils # (Manual) PT INR Fibrinogen dRVVT Confirm Interp Factor V Activity POC ABG pH POC ABG pCO2 POC ABG pO2 ABG pO2 ABG HCO3 ABG Base Excess ABG Hemoglobin Oxyhemoglobin Sodium 135 L Potassium Chloride 95.6 L Carbon Dioxide BUN 70 H Creatinine 2.0 H Glucose 126 H POC Glucose Lactic Acid Calcium Phosphorus Magnesium Direct Bilirubin AST ALT Alkaline Phosphatase Lactate Dehydrogenase Troponin T C-Reactive Protein Total Protein Albumin Prealbumin Triglycerides Cholesterol LDL Cholesterol Direct HDL Cholesterol PTH Intact Urine pH Urine WBC (Auto) Urine Creatinine Urine Total Protein Fluid Total Protein Vancomycin Trough Rheumatoid Factor Complement C4 Miscellaneous Test Crossmatch See Detail 11/07/16 11/07/16 11/07/16 12:52 18:51 21:26 WBC RBC Hgb Hct MCV MCH MCHC RDW Plt Count Lymph % (Auto) [place] % (Auto) Lymph # [place] # Baso # Seg Neutrophils % Seg Neuts % (Manual) Lymphocytes % (Manual) Monocytes % (Manual) Eosinophils % (Manual) Basophils % (Manual) Nucleated RBC % Seg Neutrophils # Seg Neutrophils # Man Lymphocytes # (Manual) Monocytes # (Manual) Eosinophils # (Manual) Basophils # (Manual) PT INR Fibrinogen dRVVT Confirm Interp Factor V Activity POC ABG pH 7.523 H POC ABG pCO2 34.6 L POC ABG pO2 53 L ABG pO2 ABG HCO3 ABG Base Excess ABG Hemoglobin Oxyhemoglobin Sodium Potassium Chloride Carbon Dioxide BUN Creatinine Glucose POC Glucose 142 H 155 H Lactic Acid Calcium Phosphorus Magnesium Direct Bilirubin AST ALT Alkaline Phosphatase Lactate Dehydrogenase Troponin T C-Reactive Protein Total Protein Albumin Prealbumin Triglycerides Cholesterol LDL Cholesterol Direct HDL Cholesterol PTH Intact Urine pH Urine WBC (Auto) Urine Creatinine Urine Total Protein Fluid Total Protein Vancomycin Trough Rheumatoid Factor Complement C4 Miscellaneous Test Crossmatch 11/07/16 11/08/16 11/08/16 21:34 13:03 23:37 WBC RBC 2.63 L Hgb 7.7 L Hct 22.7 L MCV MCH MCHC RDW 17.0 H Plt Count Lymph % (Auto) [place] % (Auto) Lymph # [place] # Baso # Seg Neutrophils % Seg Neuts % (Manual) Lymphocytes % (Manual) Monocytes % (Manual) Eosinophils % (Manual) Basophils % (Manual) Nucleated RBC % Seg Neutrophils # Seg Neutrophils # Man Lymphocytes # (Manual) Monocytes # (Manual) Eosinophils # (Manual) Basophils # (Manual) PT INR Fibrinogen dRVVT Confirm Interp Factor V Activity POC ABG pH 7.478 H POC ABG pCO2 34.0 L POC ABG pO2 50 L ABG pO2 ABG HCO3 ABG Base Excess ABG Hemoglobin Oxyhemoglobin Sodium Potassium Chloride Carbon Dioxide BUN Creatinine Glucose POC Glucose 113 H Lactic Acid Calcium Phosphorus Magnesium Direct Bilirubin AST ALT Alkaline Phosphatase Lactate Dehydrogenase Troponin T C-Reactive Protein Total Protein Albumin Prealbumin Triglycerides Cholesterol LDL Cholesterol Direct HDL Cholesterol PTH Intact Urine pH Urine WBC (Auto) Urine Creatinine Urine Total Protein Fluid Total Protein Vancomycin Trough Rheumatoid Factor Complement C4 Miscellaneous Test Crossmatch 11/09/16 11/09/16 11/09/16 04:35 10:15 18:21 WBC RBC 2.68 L Hgb 7.8 L Hct 23.3 L MCV MCH MCHC RDW 17.0 H Plt Count Lymph % (Auto) [place] % (Auto) 12.1 H Lymph # [place] # 1.1 H Baso # Seg Neutrophils % Seg Neuts % (Manual) Lymphocytes % (Manual) Monocytes % (Manual) Eosinophils % (Manual) Basophils % (Manual) Nucleated RBC % Seg Neutrophils # Seg Neutrophils # Man Lymphocytes # (Manual) Monocytes # (Manual) Eosinophils # (Manual) Basophils # (Manual) PT INR Fibrinogen dRVVT Confirm Interp Factor V Activity POC ABG pH POC ABG pCO2 POC ABG pO2 ABG pO2 ABG HCO3 ABG Base Excess ABG Hemoglobin Oxyhemoglobin Sodium Potassium Chloride Carbon Dioxide BUN 51 H Creatinine 1.8 H Glucose POC Glucose 60 L Lactic Acid Calcium 8.3 L Phosphorus Magnesium Direct Bilirubin AST ALT Alkaline Phosphatase Lactate Dehydrogenase Troponin T C-Reactive Protein Total Protein Albumin Prealbumin Triglycerides Cholesterol LDL Cholesterol Direct HDL Cholesterol PTH Intact Urine pH Urine WBC (Auto) Urine Creatinine Urine Total Protein Fluid Total Protein Vancomycin Trough Rheumatoid Factor Complement C4 Miscellaneous Test Crossmatch 11/09/16 11/10/16 11/10/16 18:55 07:00 11:51 WBC RBC Hgb Hct MCV MCH MCHC RDW Plt Count Lymph % (Auto) [place] % (Auto) Lymph # [place] # Baso # Seg Neutrophils % Seg Neuts % (Manual) Lymphocytes % (Manual) Monocytes % (Manual) Eosinophils % (Manual) Basophils % (Manual) Nucleated RBC % Seg Neutrophils # Seg Neutrophils # Man Lymphocytes # (Manual) Monocytes # (Manual) Eosinophils # (Manual) Basophils # (Manual) PT INR Fibrinogen dRVVT Confirm Interp Factor V Activity POC ABG pH POC ABG pCO2 POC ABG pO2 ABG pO2 ABG HCO3 ABG Base Excess ABG Hemoglobin Oxyhemoglobin Sodium Potassium 3.0 L D Chloride 97.4 L Carbon Dioxide BUN 28 H Creatinine 1.3 H Glucose POC Glucose 68 L 120 H Lactic Acid Calcium 7.8 L Phosphorus Magnesium Direct Bilirubin AST ALT Alkaline Phosphatase Lactate Dehydrogenase Troponin T C-Reactive Protein Total Protein Albumin Prealbumin Triglycerides Cholesterol LDL Cholesterol Direct HDL Cholesterol PTH Intact Urine pH Urine WBC (Auto) Urine Creatinine Urine Total Protein Fluid Total Protein Vancomycin Trough Rheumatoid Factor Complement C4 Miscellaneous Test Crossmatch 11/10/16 11/11/16 11/11/16 14:20 06:59 06:59 WBC RBC 2.81 L Hgb 8.1 L Hct 24.4 L MCV MCH MCHC RDW 16.4 H Plt Count Lymph % (Auto) [place] % (Auto) 10.8 H Lymph # [place] # 1.0 H Baso # Seg Neutrophils % Seg Neuts % (Manual) Lymphocytes % (Manual) Monocytes % (Manual) Eosinophils % (Manual) Basophils % (Manual) Nucleated RBC % Seg Neutrophils # Seg Neutrophils # Man Lymphocytes # (Manual) Monocytes # (Manual) Eosinophils # (Manual) Basophils # (Manual) PT INR Fibrinogen dRVVT Confirm Interp Factor V Activity POC ABG pH POC ABG pCO2 POC ABG pO2 ABG pO2 ABG HCO3 ABG Base Excess ABG Hemoglobin Oxyhemoglobin Sodium Potassium Chloride Carbon Dioxide BUN Creatinine Glucose POC Glucose Lactic Acid Calcium Phosphorus Magnesium Direct Bilirubin AST ALT Alkaline Phosphatase Lactate Dehydrogenase 196 H Troponin T C-Reactive Protein Total Protein 6.1 L Albumin Prealbumin Triglycerides Cholesterol LDL Cholesterol Direct HDL Cholesterol PTH Intact Urine pH Urine WBC (Auto) Urine Creatinine Urine Total Protein Fluid Total Protein < 3.0 L Vancomycin Trough Rheumatoid Factor Complement C4 Miscellaneous Test Crossmatch 11/11/16 11/11/16 11/12/16 06:59 09:50 04:00 WBC RBC Hgb Hct MCV MCH MCHC RDW Plt Count Lymph % (Auto) [place] % (Auto) Lymph # [place] # Baso # Seg Neutrophils % Seg Neuts % (Manual) Lymphocytes % (Manual) Monocytes % (Manual) Eosinophils % (Manual) Basophils % (Manual) Nucleated RBC % Seg Neutrophils # Seg Neutrophils # Man Lymphocytes # (Manual) Monocytes # (Manual) Eosinophils # (Manual) Basophils # (Manual) PT INR 1.18 H Fibrinogen dRVVT Confirm Interp Factor V Activity POC ABG pH POC ABG pCO2 POC ABG pO2 ABG pO2 ABG HCO3 ABG Base Excess ABG Hemoglobin Oxyhemoglobin Sodium 136 L 133 L Potassium Chloride 96.1 L 94.8 L Carbon Dioxide 21 L BUN 37 H 42 H Creatinine 1.8 H 2.0 H Glucose POC Glucose Lactic Acid Calcium Phosphorus Magnesium Direct Bilirubin AST ALT Alkaline Phosphatase Lactate Dehydrogenase Troponin T C-Reactive Protein Total Protein Albumin Prealbumin Triglycerides Cholesterol LDL Cholesterol Direct HDL Cholesterol PTH Intact Urine pH Urine WBC (Auto) Urine Creatinine Urine Total Protein Fluid Total Protein Vancomycin Trough Rheumatoid Factor Complement C4 Miscellaneous Test Crossmatch 11/12/16 11/12/16 11/13/16 04:00 23:55 05:53 WBC RBC Hgb 8.9 L Hct 27.2 L MCV MCH MCHC RDW Plt Count Lymph % (Auto) [place] % (Auto) Lymph # [place] # Baso # Seg Neutrophils % Seg Neuts % (Manual) Lymphocytes % (Manual) Monocytes % (Manual) Eosinophils % (Manual) Basophils % (Manual) Nucleated RBC % Seg Neutrophils # Seg Neutrophils # Man Lymphocytes # (Manual) Monocytes # (Manual) Eosinophils # (Manual) Basophils # (Manual) PT INR Fibrinogen dRVVT Confirm Interp Factor V Activity POC ABG pH POC ABG pCO2 POC ABG pO2 ABG pO2 ABG HCO3 ABG Base Excess ABG Hemoglobin Oxyhemoglobin Sodium Potassium Chloride Carbon Dioxide BUN Creatinine Glucose POC Glucose 132 H 120 H Lactic Acid Calcium Phosphorus Magnesium Direct Bilirubin AST ALT Alkaline Phosphatase Lactate Dehydrogenase Troponin T C-Reactive Protein Total Protein Albumin Prealbumin Triglycerides Cholesterol LDL Cholesterol Direct HDL Cholesterol PTH Intact Urine pH Urine WBC (Auto) Urine Creatinine Urine Total Protein Fluid Total Protein Vancomycin Trough Rheumatoid Factor Complement C4 Miscellaneous Test Crossmatch 11/13/16 11/13/16 11/13/16 11:43 17:09 23:41 WBC RBC Hgb Hct MCV MCH MCHC RDW Plt Count Lymph % (Auto) [place] % (Auto) Lymph # [place] # Baso # Seg Neutrophils % Seg Neuts % (Manual) Lymphocytes % (Manual) Monocytes % (Manual) Eosinophils % (Manual) Basophils % (Manual) Nucleated RBC % Seg Neutrophils # Seg Neutrophils # Man Lymphocytes # (Manual) Monocytes # (Manual) Eosinophils # (Manual) Basophils # (Manual) PT INR Fibrinogen dRVVT Confirm Interp Factor V Activity POC ABG pH POC ABG pCO2 POC ABG pO2 ABG pO2 ABG HCO3 ABG Base Excess ABG Hemoglobin Oxyhemoglobin Sodium Potassium Chloride Carbon Dioxide BUN Creatinine Glucose POC Glucose 114 H 113 H 108 H Lactic Acid Calcium Phosphorus Magnesium Direct Bilirubin AST ALT Alkaline Phosphatase Lactate Dehydrogenase Troponin T C-Reactive Protein Total Protein Albumin Prealbumin Triglycerides Cholesterol LDL Cholesterol Direct HDL Cholesterol PTH Intact Urine pH Urine WBC (Auto) Urine Creatinine Urine Total Protein Fluid Total Protein Vancomycin Trough Rheumatoid Factor Complement C4 Miscellaneous Test Crossmatch 11/13/16 11/15/16 11/15/16 Unknown 00:37 03:30 WBC 11.2 H RBC 2.72 L Hgb 7.6 L Hct 23.4 L MCV MCH MCHC RDW 16.5 H Plt Count Lymph % (Auto) [place] % (Auto) Lymph # [place] # Baso # Seg Neutrophils % Seg Neuts % (Manual) Lymphocytes % (Manual) Monocytes % (Manual) Eosinophils % (Manual) Basophils % (Manual) Nucleated RBC % Seg Neutrophils # Seg Neutrophils # Man Lymphocytes # (Manual) Monocytes # (Manual) Eosinophils # (Manual) Basophils # (Manual) PT INR Fibrinogen dRVVT Confirm Interp Factor V Activity POC ABG pH POC ABG pCO2 POC ABG pO2 ABG pO2 ABG HCO3 ABG Base Excess ABG Hemoglobin Oxyhemoglobin Sodium 135 L Potassium Chloride 95.2 L Carbon Dioxide BUN 52 H Creatinine 2.2 H Glucose POC Glucose 108 H Lactic Acid Calcium Phosphorus Magnesium Direct Bilirubin AST ALT Alkaline Phosphatase Lactate Dehydrogenase Troponin T C-Reactive Protein Total Protein Albumin Prealbumin Triglycerides Cholesterol LDL Cholesterol Direct HDL Cholesterol PTH Intact Urine pH Urine WBC (Auto) Urine Creatinine Urine Total Protein Fluid Total Protein Vancomycin Trough Rheumatoid Factor Complement C4 Miscellaneous Test Crossmatch 11/15/16 11/15/16 11/15/16 03:30 05:04 11:50 WBC RBC Hgb Hct MCV MCH MCHC RDW Plt Count Lymph % (Auto) [place] % (Auto) Lymph # [place] # Baso # Seg Neutrophils % Seg Neuts % (Manual) Lymphocytes % (Manual) Monocytes % (Manual) Eosinophils % (Manual) Basophils % (Manual) Nucleated RBC % Seg Neutrophils # Seg Neutrophils # Man Lymphocytes # (Manual) Monocytes # (Manual) Eosinophils # (Manual) Basophils # (Manual) PT INR Fibrinogen dRVVT Confirm Interp Factor V Activity POC ABG pH POC ABG pCO2 POC ABG pO2 ABG pO2 ABG HCO3 ABG Base Excess ABG Hemoglobin Oxyhemoglobin Sodium Potassium 3.4 L Chloride Carbon Dioxide BUN 25 H Creatinine 1.5 H Glucose 103 H POC Glucose 121 H 144 H Lactic Acid Calcium Phosphorus Magnesium Direct Bilirubin AST ALT Alkaline Phosphatase Lactate Dehydrogenase Troponin T C-Reactive Protein Total Protein Albumin Prealbumin Triglycerides Cholesterol LDL Cholesterol Direct HDL Cholesterol PTH Intact Urine pH Urine WBC (Auto) Urine Creatinine Urine Total Protein Fluid Total Protein Vancomycin Trough Rheumatoid Factor Complement C4 Miscellaneous Test Crossmatch 11/15/16 11/15/16 11/16/16 21:28 23:20 11:44 WBC RBC Hgb Hct MCV MCH MCHC RDW Plt Count Lymph % (Auto) [place] % (Auto) Lymph # [place] # Baso # Seg Neutrophils % Seg Neuts % (Manual) Lymphocytes % (Manual) Monocytes % (Manual) Eosinophils % (Manual) Basophils % (Manual) Nucleated RBC % Seg Neutrophils # Seg Neutrophils # Man Lymphocytes # (Manual) Monocytes # (Manual) Eosinophils # (Manual) Basophils # (Manual) PT INR Fibrinogen dRVVT Confirm Interp Factor V Activity POC ABG pH 7.462 H POC ABG pCO2 POC ABG pO2 71 L ABG pO2 ABG HCO3 ABG Base Excess ABG Hemoglobin Oxyhemoglobin Sodium Potassium Chloride Carbon Dioxide BUN Creatinine Glucose POC Glucose 116 H 133 H Lactic Acid Calcium Phosphorus Magnesium Direct Bilirubin AST ALT Alkaline Phosphatase Lactate Dehydrogenase Troponin T C-Reactive Protein Total Protein Albumin Prealbumin Triglycerides Cholesterol LDL Cholesterol Direct HDL Cholesterol PTH Intact Urine pH Urine WBC (Auto) Urine Creatinine Urine Total Protein Fluid Total Protein Vancomycin Trough Rheumatoid Factor Complement C4 Miscellaneous Test Crossmatch 11/16/16 11/16/16 11/16/16 12:20 17:05 23:35 WBC 11.7 H RBC 2.73 L Hgb 7.6 L Hct 23.7 L MCV MCH MCHC RDW 16.6 H Plt Count Lymph % (Auto) [place] % (Auto) Lymph # [place] # Baso # Seg Neutrophils % Seg Neuts % (Manual) Lymphocytes % (Manual) Monocytes % (Manual) Eosinophils % (Manual) Basophils % (Manual) Nucleated RBC % Seg Neutrophils # Seg Neutrophils # Man Lymphocytes # (Manual) Monocytes # (Manual) Eosinophils # (Manual) Basophils # (Manual) PT INR Fibrinogen dRVVT Confirm Interp Factor V Activity POC ABG pH POC ABG pCO2 POC ABG pO2 ABG pO2 ABG HCO3 ABG Base Excess ABG Hemoglobin Oxyhemoglobin Sodium Potassium Chloride Carbon Dioxide BUN Creatinine Glucose POC Glucose 154 H 125 H Lactic Acid Calcium Phosphorus Magnesium Direct Bilirubin AST ALT Alkaline Phosphatase Lactate Dehydrogenase Troponin T C-Reactive Protein Total Protein Albumin Prealbumin Triglycerides Cholesterol LDL Cholesterol Direct HDL Cholesterol PTH Intact Urine pH Urine WBC (Auto) Urine Creatinine Urine Total Protein Fluid Total Protein Vancomycin Trough Rheumatoid Factor Complement C4 Miscellaneous Test Crossmatch 11/17/16 11/17/16 11/17/16 03:20 03:20 03:20 WBC RBC 2.55 L Hgb 7.3 L Hct 21.9 L MCV MCH MCHC RDW 16.6 H Plt Count Lymph % (Auto) [place] % (Auto) 11.5 H Lymph # [place] # 1.1 H Baso # Seg Neutrophils % Seg Neuts % (Manual) Lymphocytes % (Manual) Monocytes % (Manual) Eosinophils % (Manual) Basophils % (Manual) Nucleated RBC % Seg Neutrophils # Seg Neutrophils # Man Lymphocytes # (Manual) Monocytes # (Manual) Eosinophils # (Manual) Basophils # (Manual) PT 16.8 H INR 1.37 H Fibrinogen dRVVT Confirm Interp Factor V Activity POC ABG pH POC ABG pCO2 POC ABG pO2 ABG pO2 ABG HCO3 ABG Base Excess ABG Hemoglobin Oxyhemoglobin Sodium Potassium 3.5 L Chloride Carbon Dioxide BUN 21 H Creatinine Glucose POC Glucose Lactic Acid Calcium 7.9 L Phosphorus Magnesium Direct Bilirubin AST ALT Alkaline Phosphatase Lactate Dehydrogenase Troponin T C-Reactive Protein Total Protein Albumin Prealbumin Triglycerides Cholesterol LDL Cholesterol Direct HDL Cholesterol PTH Intact Urine pH Urine WBC (Auto) Urine Creatinine Urine Total Protein Fluid Total Protein Vancomycin Trough Rheumatoid Factor Complement C4 Miscellaneous Test Crossmatch 11/17/16 11/17/16 11/17/16 06:34 11:21 21:22 WBC RBC Hgb Hct MCV MCH MCHC RDW Plt Count Lymph % (Auto) [place] % (Auto) Lymph # [place] # Baso # Seg Neutrophils % Seg Neuts % (Manual) Lymphocytes % (Manual) Monocytes % (Manual) Eosinophils % (Manual) Basophils % (Manual) Nucleated RBC % Seg Neutrophils # Seg Neutrophils # Man Lymphocytes # (Manual) Monocytes # (Manual) Eosinophils # (Manual) Basophils # (Manual) PT INR Fibrinogen dRVVT Confirm Interp Factor V Activity POC ABG pH 7.467 H POC ABG pCO2 POC ABG pO2 73 L ABG pO2 ABG HCO3 ABG Base Excess ABG Hemoglobin Oxyhemoglobin Sodium Potassium Chloride Carbon Dioxide BUN Creatinine Glucose POC Glucose 121 H 119 H Lactic Acid Calcium Phosphorus Magnesium Direct Bilirubin AST ALT Alkaline Phosphatase Lactate Dehydrogenase Troponin T C-Reactive Protein Total Protein Albumin Prealbumin Triglycerides Cholesterol LDL Cholesterol Direct HDL Cholesterol PTH Intact Urine pH Urine WBC (Auto) Urine Creatinine Urine Total Protein Fluid Total Protein Vancomycin Trough Rheumatoid Factor Complement C4 Miscellaneous Test Crossmatch 11/18/16 11/18/16 11/19/16 12:16 17:19 00:00 WBC RBC Hgb Hct MCV MCH MCHC RDW Plt Count Lymph % (Auto) [place] % (Auto) Lymph # [place] # Baso # Seg Neutrophils % Seg Neuts % (Manual) Lymphocytes % (Manual) Monocytes % (Manual) Eosinophils % (Manual) Basophils % (Manual) Nucleated RBC % Seg Neutrophils # Seg Neutrophils # Man Lymphocytes # (Manual) Monocytes # (Manual) Eosinophils # (Manual) Basophils # (Manual) PT INR Fibrinogen dRVVT Confirm Interp Factor V Activity POC ABG pH POC ABG pCO2 POC ABG pO2 ABG pO2 ABG HCO3 ABG Base Excess ABG Hemoglobin Oxyhemoglobin Sodium Potassium Chloride Carbon Dioxide BUN Creatinine Glucose POC Glucose 124 H 162 H 139 H Lactic Acid Calcium Phosphorus Magnesium Direct Bilirubin AST ALT Alkaline Phosphatase Lactate Dehydrogenase Troponin T C-Reactive Protein Total Protein Albumin Prealbumin Triglycerides Cholesterol LDL Cholesterol Direct HDL Cholesterol PTH Intact Urine pH Urine WBC (Auto) Urine Creatinine Urine Total Protein Fluid Total Protein Vancomycin Trough Rheumatoid Factor Complement C4 Miscellaneous Test Crossmatch 11/19/16 11/19/16 11/20/16 05:00 12:43 00:40 WBC RBC Hgb Hct MCV MCH MCHC RDW Plt Count Lymph % (Auto) [place] % (Auto) Lymph # [place] # Baso # Seg Neutrophils % Seg Neuts % (Manual) Lymphocytes % (Manual) Monocytes % (Manual) Eosinophils % (Manual) Basophils % (Manual) Nucleated RBC % Seg Neutrophils # Seg Neutrophils # Man Lymphocytes # (Manual) Monocytes # (Manual) Eosinophils # (Manual) Basophils # (Manual) PT INR Fibrinogen dRVVT Confirm Interp Factor V Activity POC ABG pH POC ABG pCO2 POC ABG pO2 ABG pO2 ABG HCO3 ABG Base Excess ABG Hemoglobin Oxyhemoglobin Sodium Potassium Chloride Carbon Dioxide BUN Creatinine Glucose POC Glucose 110 H 125 H 136 H Lactic Acid Calcium Phosphorus Magnesium Direct Bilirubin AST ALT Alkaline Phosphatase Lactate Dehydrogenase Troponin T C-Reactive Protein Total Protein Albumin Prealbumin Triglycerides Cholesterol LDL Cholesterol Direct HDL Cholesterol PTH Intact Urine pH Urine WBC (Auto) Urine Creatinine Urine Total Protein Fluid Total Protein Vancomycin Trough Rheumatoid Factor Complement C4 Miscellaneous Test Crossmatch 11/20/16 11/20/16 11/20/16 05:00 05:00 05:51 WBC 13.1 H RBC 2.74 L Hgb 7.7 L Hct 23.6 L MCV MCH MCHC RDW 16.9 H Plt Count Lymph % (Auto) [place] % (Auto) 10.8 H Lymph # [place] # 1.4 H Baso # Seg Neutrophils % Seg Neuts % (Manual) Lymphocytes % (Manual) Monocytes % (Manual) Eosinophils % (Manual) Basophils % (Manual) Nucleated RBC % Seg Neutrophils # 7.9 H Seg Neutrophils # Man Lymphocytes # (Manual) Monocytes # (Manual) Eosinophils # (Manual) Basophils # (Manual) PT INR Fibrinogen dRVVT Confirm Interp Factor V Activity POC ABG pH POC ABG pCO2 POC ABG pO2 ABG pO2 ABG HCO3 ABG Base Excess ABG Hemoglobin Oxyhemoglobin Sodium Potassium Chloride Carbon Dioxide BUN 31 H Creatinine 1.8 H Glucose 129 H POC Glucose 133 H Lactic Acid Calcium Phosphorus Magnesium Direct Bilirubin AST ALT Alkaline Phosphatase Lactate Dehydrogenase Troponin T C-Reactive Protein Total Protein Albumin Prealbumin Triglycerides Cholesterol LDL Cholesterol Direct HDL Cholesterol PTH Intact Urine pH Urine WBC (Auto) Urine Creatinine Urine Total Protein Fluid Total Protein Vancomycin Trough Rheumatoid Factor Complement C4 Miscellaneous Test Crossmatch 11/20/16 11/20/16 11/21/16 12:40 18:10 01:20 WBC RBC Hgb Hct MCV MCH MCHC RDW Plt Count Lymph % (Auto) [place] % (Auto) Lymph # [place] # Baso # Seg Neutrophils % Seg Neuts % (Manual) Lymphocytes % (Manual) Monocytes % (Manual) Eosinophils % (Manual) Basophils % (Manual) Nucleated RBC % Seg Neutrophils # Seg Neutrophils # Man Lymphocytes # (Manual) Monocytes # (Manual) Eosinophils # (Manual) Basophils # (Manual) PT INR Fibrinogen dRVVT Confirm Interp Factor V Activity POC ABG pH POC ABG pCO2 POC ABG pO2 ABG pO2 ABG HCO3 ABG Base Excess ABG Hemoglobin Oxyhemoglobin Sodium Potassium Chloride Carbon Dioxide BUN Creatinine Glucose POC Glucose 134 H 138 H 136 H Lactic Acid Calcium Phosphorus Magnesium Direct Bilirubin AST ALT Alkaline Phosphatase Lactate Dehydrogenase Troponin T C-Reactive Protein Total Protein Albumin Prealbumin Triglycerides Cholesterol LDL Cholesterol Direct HDL Cholesterol PTH Intact Urine pH Urine WBC (Auto) Urine Creatinine Urine Total Protein Fluid Total Protein Vancomycin Trough Rheumatoid Factor Complement C4 Miscellaneous Test Crossmatch 11/21/16 11/21/16 11/21/16 07:04 07:45 07:45 WBC 22.0 H RBC 2.91 L Hgb 8.2 L Hct 25.4 L MCV MCH MCHC RDW 17.1 H Plt Count Lymph % (Auto) [place] % (Auto) Lymph # [place] # Baso # Seg Neutrophils % Seg Neuts % (Manual) Lymphocytes % (Manual) 8.0 L Monocytes % (Manual) Eosinophils % (Manual) Basophils % (Manual) Nucleated RBC % Seg Neutrophils # Seg Neutrophils # Man 14.7 H Lymphocytes # (Manual) Monocytes # (Manual) 1.1 H Eosinophils # (Manual) Basophils # (Manual) PT INR Fibrinogen dRVVT Confirm Interp Factor V Activity POC ABG pH POC ABG pCO2 POC ABG pO2 ABG pO2 ABG HCO3 ABG Base Excess ABG Hemoglobin Oxyhemoglobin Sodium Potassium Chloride Carbon Dioxide BUN 42 H Creatinine 2.0 H Glucose POC Glucose 108 H Lactic Acid Calcium Phosphorus Magnesium Direct Bilirubin AST ALT Alkaline Phosphatase Lactate Dehydrogenase Troponin T C-Reactive Protein Total Protein Albumin Prealbumin Triglycerides Cholesterol LDL Cholesterol Direct HDL Cholesterol PTH Intact Urine pH Urine WBC (Auto) Urine Creatinine Urine Total Protein Fluid Total Protein Vancomycin Trough Rheumatoid Factor Complement C4 Miscellaneous Test Crossmatch 11/21/16 11/21/16 11/21/16 08:38 10:09 11:20 WBC RBC Hgb Hct MCV MCH MCHC RDW Plt Count Lymph % (Auto) [place] % (Auto) Lymph # [place] # Baso # Seg Neutrophils % Seg Neuts % (Manual) Lymphocytes % (Manual) Monocytes % (Manual) Eosinophils % (Manual) Basophils % (Manual) Nucleated RBC % Seg Neutrophils # Seg Neutrophils # Man Lymphocytes # (Manual) Monocytes # (Manual) Eosinophils # (Manual) Basophils # (Manual) PT INR Fibrinogen dRVVT Confirm Interp Factor V Activity POC ABG pH 7.346 L POC ABG pCO2 34.4 L POC ABG pO2 314 H ABG pO2 ABG HCO3 ABG Base Excess ABG Hemoglobin Oxyhemoglobin Sodium Potassium Chloride Carbon Dioxide BUN Creatinine Glucose POC Glucose 195 H 153 H Lactic Acid Calcium Phosphorus Magnesium Direct Bilirubin AST ALT Alkaline Phosphatase Lactate Dehydrogenase Troponin T C-Reactive Protein Total Protein Albumin Prealbumin Triglycerides Cholesterol LDL Cholesterol Direct HDL Cholesterol PTH Intact Urine pH Urine WBC (Auto) Urine Creatinine Urine Total Protein Fluid Total Protein Vancomycin Trough Rheumatoid Factor Complement C4 Miscellaneous Test Crossmatch 11/21/16 11/22/16 11/22/16 23:37 04:48 05:00 WBC 29.7 H RBC 2.73 L Hgb 7.5 L Hct 24.2 L MCV MCH 27 L MCHC RDW 17.4 H Plt Count Lymph % (Auto) [place] % (Auto) Lymph # [place] # Baso # Seg Neutrophils % Seg Neuts % (Manual) Lymphocytes % (Manual) 7.0 L Monocytes % (Manual) Eosinophils % (Manual) Basophils % (Manual) Nucleated RBC % Seg Neutrophils # Seg Neutrophils # Man 15.4 H Lymphocytes # (Manual) Monocytes # (Manual) Eosinophils # (Manual) Basophils # (Manual) PT INR Fibrinogen dRVVT Confirm Interp Factor V Activity POC ABG pH POC ABG pCO2 24.6 L POC ABG pO2 189 H ABG pO2 ABG HCO3 ABG Base Excess ABG Hemoglobin Oxyhemoglobin Sodium Potassium Chloride Carbon Dioxide BUN Creatinine Glucose POC Glucose 65 L Lactic Acid Calcium Phosphorus Magnesium Direct Bilirubin AST ALT Alkaline Phosphatase Lactate Dehydrogenase Troponin T C-Reactive Protein Total Protein Albumin Prealbumin Triglycerides Cholesterol LDL Cholesterol Direct HDL Cholesterol PTH Intact Urine pH Urine WBC (Auto) Urine Creatinine Urine Total Protein Fluid Total Protein Vancomycin Trough Rheumatoid Factor Complement C4 Miscellaneous Test Crossmatch 11/22/16 11/23/16 11/23/16 05:00 03:44 04:06 WBC RBC 2.52 L Hgb 7.2 L Hct 21.5 L MCV MCH MCHC RDW 17.1 H Plt Count Lymph % (Auto) [place] % (Auto) 12.4 H Lymph # [place] # 1.4 H Baso # Seg Neutrophils % Seg Neuts % (Manual) Lymphocytes % (Manual) Monocytes % (Manual) Eosinophils % (Manual) Basophils % (Manual) Nucleated RBC % Seg Neutrophils # Seg Neutrophils # Man Lymphocytes # (Manual) Monocytes # (Manual) Eosinophils # (Manual) Basophils # (Manual) PT INR Fibrinogen dRVVT Confirm Interp Factor V Activity POC ABG pH 7.493 H POC ABG pCO2 29.5 L POC ABG pO2 49 L ABG pO2 ABG HCO3 ABG Base Excess ABG Hemoglobin Oxyhemoglobin Sodium 134 L Potassium Chloride 95.9 L Carbon Dioxide 14 L D BUN 51 H Creatinine 2.6 H Glucose POC Glucose Lactic Acid Calcium Phosphorus Magnesium Direct Bilirubin AST ALT Alkaline Phosphatase Lactate Dehydrogenase Troponin T C-Reactive Protein Total Protein Albumin Prealbumin Triglycerides Cholesterol LDL Cholesterol Direct HDL Cholesterol PTH Intact Urine pH Urine WBC (Auto) Urine Creatinine Urine Total Protein Fluid Total Protein Vancomycin Trough Rheumatoid Factor Complement C4 Miscellaneous Test Crossmatch 11/23/16 11/23/16 11/24/16 04:06 11:29 06:39 WBC RBC Hgb Hct MCV MCH MCHC RDW Plt Count Lymph % (Auto) [place] % (Auto) Lymph # [place] # Baso # Seg Neutrophils % Seg Neuts % (Manual) Lymphocytes % (Manual) Monocytes % (Manual) Eosinophils % (Manual) Basophils % (Manual) Nucleated RBC % Seg Neutrophils # Seg Neutrophils # Man Lymphocytes # (Manual) Monocytes # (Manual) Eosinophils # (Manual) Basophils # (Manual) PT INR Fibrinogen dRVVT Confirm Interp Factor V Activity POC ABG pH POC ABG pCO2 POC ABG pO2 ABG pO2 ABG HCO3 ABG Base Excess ABG Hemoglobin Oxyhemoglobin Sodium 136 L Potassium Chloride 95.2 L Carbon Dioxide BUN 60 H Creatinine 2.9 H Glucose POC Glucose 69 L 305 H Lactic Acid Calcium Phosphorus Magnesium 1.60 L Direct Bilirubin AST ALT Alkaline Phosphatase Lactate Dehydrogenase Troponin T C-Reactive Protein Total Protein Albumin Prealbumin Triglycerides Cholesterol LDL Cholesterol Direct HDL Cholesterol PTH Intact Urine pH Urine WBC (Auto) Urine Creatinine Urine Total Protein Fluid Total Protein Vancomycin Trough Rheumatoid Factor Complement C4 Miscellaneous Test Crossmatch 11/24/16 11/24/16 11/24/16 06:43 08:08 08:08 WBC 11.2 H RBC 2.47 L Hgb 6.8 L Hct 20.6 L MCV MCH MCHC RDW 17.0 H Plt Count Lymph % (Auto) [place] % (Auto) 10.3 H Lymph # [place] # 1.2 H Baso # Seg Neutrophils % Seg Neuts % (Manual) Lymphocytes % (Manual) Monocytes % (Manual) Eosinophils % (Manual) Basophils % (Manual) Nucleated RBC % Seg Neutrophils # Seg Neutrophils # Man Lymphocytes # (Manual) Monocytes # (Manual) Eosinophils # (Manual) Basophils # (Manual) PT INR Fibrinogen dRVVT Confirm Interp Factor V Activity POC ABG pH POC ABG pCO2 POC ABG pO2 ABG pO2 ABG HCO3 ABG Base Excess ABG Hemoglobin Oxyhemoglobin Sodium 135 L Potassium Chloride 96.3 L Carbon Dioxide BUN 61 H Creatinine 3.1 H Glucose POC Glucose 62 L Lactic Acid Calcium 8.2 L Phosphorus Magnesium Direct Bilirubin AST ALT Alkaline Phosphatase Lactate Dehydrogenase Troponin T C-Reactive Protein Total Protein Albumin Prealbumin Triglycerides Cholesterol LDL Cholesterol Direct HDL Cholesterol PTH Intact Urine pH Urine WBC (Auto) Urine Creatinine Urine Total Protein Fluid Total Protein Vancomycin Trough Rheumatoid Factor Complement C4 Miscellaneous Test Crossmatch 11/24/16 11/24/16 11/24/16 08:34 11:20 12:41 WBC RBC Hgb Hct MCV MCH MCHC RDW Plt Count Lymph % (Auto) [place] % (Auto) Lymph # [place] # Baso # Seg Neutrophils % Seg Neuts % (Manual) Lymphocytes % (Manual) Monocytes % (Manual) Eosinophils % (Manual) Basophils % (Manual) Nucleated RBC % Seg Neutrophils # Seg Neutrophils # Man Lymphocytes # (Manual) Monocytes # (Manual) Eosinophils # (Manual) Basophils # (Manual) PT INR Fibrinogen dRVVT Confirm Interp Factor V Activity POC ABG pH POC ABG pCO2 POC ABG pO2 ABG pO2 ABG HCO3 ABG Base Excess ABG Hemoglobin Oxyhemoglobin Sodium Potassium Chloride Carbon Dioxide BUN Creatinine Glucose POC Glucose 108 H Lactic Acid Calcium Phosphorus Magnesium 1.60 L Direct Bilirubin AST ALT Alkaline Phosphatase Lactate Dehydrogenase Troponin T C-Reactive Protein Total Protein Albumin Prealbumin Triglycerides Cholesterol LDL Cholesterol Direct HDL Cholesterol PTH Intact Urine pH Urine WBC (Auto) Urine Creatinine Urine Total Protein Fluid Total Protein Vancomycin Trough Rheumatoid Factor Complement C4 Miscellaneous Test Crossmatch See Detail 11/25/16 11/25/16 11/25/16 00:03 04:42 04:42 WBC RBC 3.03 L Hgb 8.6 L Hct 25.3 L MCV MCH MCHC RDW 16.2 H Plt Count Lymph % (Auto) [place] % (Auto) 8.1 H Lymph # [place] # Baso # Seg Neutrophils % 71.3 H Seg Neuts % (Manual) Lymphocytes % (Manual) Monocytes % (Manual) Eosinophils % (Manual) Basophils % (Manual) Nucleated RBC % Seg Neutrophils # Seg Neutrophils # Man Lymphocytes # (Manual) Monocytes # (Manual) Eosinophils # (Manual) Basophils # (Manual) PT INR Fibrinogen dRVVT Confirm Interp Factor V Activity POC ABG pH POC ABG pCO2 POC ABG pO2 ABG pO2 ABG HCO3 ABG Base Excess ABG Hemoglobin Oxyhemoglobin Sodium Potassium Chloride Carbon Dioxide BUN 61 H Creatinine 3.0 H Glucose 102 H POC Glucose 113 H Lactic Acid Calcium 8.2 L Phosphorus Magnesium Direct Bilirubin AST ALT Alkaline Phosphatase 142 H Lactate Dehydrogenase Troponin T C-Reactive Protein Total Protein 5.7 L Albumin 1.5 L Prealbumin Triglycerides Cholesterol LDL Cholesterol Direct HDL Cholesterol PTH Intact Urine pH Urine WBC (Auto) Urine Creatinine Urine Total Protein Fluid Total Protein Vancomycin Trough Rheumatoid Factor Complement C4 Miscellaneous Test Crossmatch 11/25/16 11/25/16 11/25/16 05:12 11:31 14:12 WBC RBC Hgb Hct MCV MCH MCHC RDW Plt Count Lymph % (Auto) [place] % (Auto) Lymph # [place] # Baso # Seg Neutrophils % Seg Neuts % (Manual) Lymphocytes % (Manual) Monocytes % (Manual) Eosinophils % (Manual) Basophils % (Manual) Nucleated RBC % Seg Neutrophils # Seg Neutrophils # Man Lymphocytes # (Manual) Monocytes # (Manual) Eosinophils # (Manual) Basophils # (Manual) PT INR Fibrinogen dRVVT Confirm Interp Factor V Activity POC ABG pH 7.487 H POC ABG pCO2 POC ABG pO2 153 H ABG pO2 ABG HCO3 ABG Base Excess ABG Hemoglobin Oxyhemoglobin Sodium Potassium Chloride Carbon Dioxide BUN Creatinine Glucose POC Glucose 131 H 140 H Lactic Acid Calcium Phosphorus Magnesium Direct Bilirubin AST ALT Alkaline Phosphatase Lactate Dehydrogenase Troponin T C-Reactive Protein Total Protein Albumin Prealbumin Triglycerides Cholesterol LDL Cholesterol Direct HDL Cholesterol PTH Intact Urine pH Urine WBC (Auto) Urine Creatinine Urine Total Protein Fluid Total Protein Vancomycin Trough Rheumatoid Factor Complement C4 Miscellaneous Test Crossmatch 11/25/16 11/26/16 11/26/16 17:23 00:09 05:13 WBC RBC 2.94 L Hgb 8.4 L Hct 24.6 L MCV MCH MCHC RDW 16.4 H Plt Count Lymph % (Auto) [place] % (Auto) 12.3 H Lymph # [place] # 1.1 H Baso # Seg Neutrophils % Seg Neuts % (Manual) Lymphocytes % (Manual) Monocytes % (Manual) Eosinophils % (Manual) Basophils % (Manual) Nucleated RBC % Seg Neutrophils # Seg Neutrophils # Man Lymphocytes # (Manual) Monocytes # (Manual) Eosinophils # (Manual) Basophils # (Manual) PT INR Fibrinogen dRVVT Confirm Interp Factor V Activity POC ABG pH POC ABG pCO2 POC ABG pO2 ABG pO2 ABG HCO3 ABG Base Excess ABG Hemoglobin Oxyhemoglobin Sodium Potassium Chloride Carbon Dioxide BUN Creatinine Glucose POC Glucose 146 H 112 H Lactic Acid Calcium Phosphorus Magnesium Direct Bilirubin AST ALT Alkaline Phosphatase Lactate Dehydrogenase Troponin T C-Reactive Protein Total Protein Albumin Prealbumin Triglycerides Cholesterol LDL Cholesterol Direct HDL Cholesterol PTH Intact Urine pH Urine WBC (Auto) Urine Creatinine Urine Total Protein Fluid Total Protein Vancomycin Trough Rheumatoid Factor Complement C4 Miscellaneous Test Crossmatch 11/26/16 11/26/16 11/26/16 05:13 05:28 11:53 WBC RBC Hgb Hct MCV MCH MCHC RDW Plt Count Lymph % (Auto) [place] % (Auto) Lymph # [place] # Baso # Seg Neutrophils % Seg Neuts % (Manual) Lymphocytes % (Manual) Monocytes % (Manual) Eosinophils % (Manual) Basophils % (Manual) Nucleated RBC % Seg Neutrophils # Seg Neutrophils # Man Lymphocytes # (Manual) Monocytes # (Manual) Eosinophils # (Manual) Basophils # (Manual) PT INR Fibrinogen dRVVT Confirm Interp Factor V Activity POC ABG pH POC ABG pCO2 POC ABG pO2 ABG pO2 ABG HCO3 ABG Base Excess ABG Hemoglobin Oxyhemoglobin Sodium Potassium Chloride 97.8 L Carbon Dioxide BUN 37 H Creatinine 2.0 H Glucose 109 H POC Glucose 117 H 111 H Lactic Acid Calcium 7.9 L Phosphorus 1.80 L D Magnesium Direct Bilirubin AST ALT Alkaline Phosphatase Lactate Dehydrogenase Troponin T C-Reactive Protein Total Protein Albumin Prealbumin Triglycerides Cholesterol LDL Cholesterol Direct HDL Cholesterol PTH Intact Urine pH Urine WBC (Auto) Urine Creatinine Urine Total Protein Fluid Total Protein Vancomycin Trough Rheumatoid Factor Complement C4 Miscellaneous Test Crossmatch 11/26/16 11/27/16 11/27/16 17:14 04:50 06:02 WBC RBC Hgb Hct MCV MCH MCHC RDW Plt Count Lymph % (Auto) [place] % (Auto) Lymph # [place] # Baso # Seg Neutrophils % Seg Neuts % (Manual) Lymphocytes % (Manual) Monocytes % (Manual) Eosinophils % (Manual) Basophils % (Manual) Nucleated RBC % Seg Neutrophils # Seg Neutrophils # Man Lymphocytes # (Manual) Monocytes # (Manual) Eosinophils # (Manual) Basophils # (Manual) PT INR Fibrinogen dRVVT Confirm Interp Factor V Activity POC ABG pH POC ABG pCO2 POC ABG pO2 ABG pO2 75.2 L ABG HCO3 26.4 H ABG Base Excess ABG Hemoglobin 7.6 L Oxyhemoglobin 94.8 L Sodium Potassium Chloride Carbon Dioxide BUN 49 H Creatinine 2.3 H Glucose POC Glucose 115 H Lactic Acid Calcium Phosphorus 1.50 L Magnesium Direct Bilirubin AST ALT Alkaline Phosphatase Lactate Dehydrogenase Troponin T C-Reactive Protein Total Protein Albumin Prealbumin Triglycerides Cholesterol LDL Cholesterol Direct HDL Cholesterol PTH Intact Urine pH Urine WBC (Auto) Urine Creatinine Urine Total Protein Fluid Total Protein Vancomycin Trough Rheumatoid Factor Complement C4 Miscellaneous Test Crossmatch 11/27/16 11/27/16 11/27/16 06:02 11:25 17:25 WBC 11.6 H RBC 2.75 L Hgb 7.6 L Hct 23.4 L MCV MCH MCHC RDW 16.5 H Plt Count Lymph % (Auto) [place] % (Auto) Lymph # [place] # Baso # Seg Neutrophils % Seg Neuts % (Manual) Lymphocytes % (Manual) Monocytes % (Manual) Eosinophils % (Manual) Basophils % (Manual) Nucleated RBC % Seg Neutrophils # Seg Neutrophils # Man Lymphocytes # (Manual) Monocytes # (Manual) Eosinophils # (Manual) Basophils # (Manual) PT INR Fibrinogen dRVVT Confirm Interp Factor V Activity POC ABG pH POC ABG pCO2 POC ABG pO2 ABG pO2 ABG HCO3 ABG Base Excess ABG Hemoglobin Oxyhemoglobin Sodium Potassium Chloride Carbon Dioxide BUN Creatinine Glucose POC Glucose 114 H 126 H Lactic Acid Calcium Phosphorus Magnesium Direct Bilirubin AST ALT Alkaline Phosphatase Lactate Dehydrogenase Troponin T C-Reactive Protein Total Protein Albumin Prealbumin Triglycerides Cholesterol LDL Cholesterol Direct HDL Cholesterol PTH Intact Urine pH Urine WBC (Auto) Urine Creatinine Urine Total Protein Fluid Total Protein Vancomycin Trough Rheumatoid Factor Complement C4 Miscellaneous Test Crossmatch 11/28/16 11/28/16 11/28/16 04:45 05:33 05:44 WBC RBC Hgb Hct MCV MCH MCHC RDW Plt Count Lymph % (Auto) [place] % (Auto) Lymph # [place] # Baso # Seg Neutrophils % Seg Neuts % (Manual) Lymphocytes % (Manual) Monocytes % (Manual) Eosinophils % (Manual) Basophils % (Manual) Nucleated RBC % Seg Neutrophils # Seg Neutrophils # Man Lymphocytes # (Manual) Monocytes # (Manual) Eosinophils # (Manual) Basophils # (Manual) PT INR Fibrinogen dRVVT Confirm Interp Factor V Activity POC ABG pH POC ABG pCO2 POC ABG pO2 ABG pO2 99.3 H ABG HCO3 ABG Base Excess ABG Hemoglobin 8.3 L Oxyhemoglobin Sodium Potassium Chloride Carbon Dioxide BUN 63 H Creatinine 2.4 H Glucose 102 H POC Glucose 108 H Lactic Acid Calcium Phosphorus 1.80 L Magnesium Direct Bilirubin AST ALT Alkaline Phosphatase Lactate Dehydrogenase Troponin T C-Reactive Protein Total Protein Albumin Prealbumin Triglycerides Cholesterol LDL Cholesterol Direct HDL Cholesterol PTH Intact Urine pH Urine WBC (Auto) Urine Creatinine Urine Total Protein Fluid Total Protein Vancomycin Trough Rheumatoid Factor Complement C4 Miscellaneous Test Crossmatch 11/28/16 11/28/16 11/28/16 12:31 16:09 23:46 WBC RBC Hgb Hct MCV MCH MCHC RDW Plt Count Lymph % (Auto) [place] % (Auto) Lymph # [place] # Baso # Seg Neutrophils % Seg Neuts % (Manual) Lymphocytes % (Manual) Monocytes % (Manual) Eosinophils % (Manual) Basophils % (Manual) Nucleated RBC % Seg Neutrophils # Seg Neutrophils # Man Lymphocytes # (Manual) Monocytes # (Manual) Eosinophils # (Manual) Basophils # (Manual) PT INR Fibrinogen dRVVT Confirm Interp Factor V Activity POC ABG pH POC ABG pCO2 POC ABG pO2 ABG pO2 ABG HCO3 ABG Base Excess ABG Hemoglobin Oxyhemoglobin Sodium Potassium Chloride Carbon Dioxide BUN Creatinine Glucose POC Glucose 126 H 111 H 119 H Lactic Acid Calcium Phosphorus Magnesium Direct Bilirubin AST ALT Alkaline Phosphatase Lactate Dehydrogenase Troponin T C-Reactive Protein Total Protein Albumin Prealbumin Triglycerides Cholesterol LDL Cholesterol Direct HDL Cholesterol PTH Intact Urine pH Urine WBC (Auto) Urine Creatinine Urine Total Protein Fluid Total Protein Vancomycin Trough Rheumatoid Factor Complement C4 Miscellaneous Test Crossmatch 11/29/16 11/29/16 11/29/16 03:33 04:52 05:10 WBC RBC Hgb Hct MCV MCH MCHC RDW Plt Count Lymph % (Auto) [place] % (Auto) Lymph # [place] # Baso # Seg Neutrophils % Seg Neuts % (Manual) Lymphocytes % (Manual) Monocytes % (Manual) Eosinophils % (Manual) Basophils % (Manual) Nucleated RBC % Seg Neutrophils # Seg Neutrophils # Man Lymphocytes # (Manual) Monocytes # (Manual) Eosinophils # (Manual) Basophils # (Manual) PT INR Fibrinogen dRVVT Confirm Interp Factor V Activity POC ABG pH POC ABG pCO2 POC ABG pO2 ABG pO2 ABG HCO3 ABG Base Excess ABG Hemoglobin 7.0 L Oxyhemoglobin 94.9 L Sodium Potassium Chloride Carbon Dioxide BUN 73 H Creatinine 2.7 H Glucose POC Glucose 108 H Lactic Acid Calcium Phosphorus Magnesium Direct Bilirubin AST ALT Alkaline Phosphatase Lactate Dehydrogenase Troponin T C-Reactive Protein Total Protein Albumin Prealbumin Triglycerides Cholesterol LDL Cholesterol Direct HDL Cholesterol PTH Intact Urine pH Urine WBC (Auto) Urine Creatinine Urine Total Protein Fluid Total Protein Vancomycin Trough Rheumatoid Factor Complement C4 Miscellaneous Test Crossmatch 11/29/16 11/29/16 11/29/16 12:16 18:05 23:46 WBC RBC Hgb Hct MCV MCH MCHC RDW Plt Count Lymph % (Auto) [place] % (Auto) Lymph # [place] # Baso # Seg Neutrophils % Seg Neuts % (Manual) Lymphocytes % (Manual) Monocytes % (Manual) Eosinophils % (Manual) Basophils % (Manual) Nucleated RBC % Seg Neutrophils # Seg Neutrophils # Man Lymphocytes # (Manual) Monocytes # (Manual) Eosinophils # (Manual) Basophils # (Manual) PT INR Fibrinogen dRVVT Confirm Interp Factor V Activity POC ABG pH POC ABG pCO2 POC ABG pO2 ABG pO2 ABG HCO3 ABG Base Excess ABG Hemoglobin Oxyhemoglobin Sodium Potassium Chloride Carbon Dioxide BUN Creatinine Glucose POC Glucose 133 H 146 H 141 H Lactic Acid Calcium Phosphorus Magnesium Direct Bilirubin AST ALT Alkaline Phosphatase Lactate Dehydrogenase Troponin T C-Reactive Protein Total Protein Albumin Prealbumin Triglycerides Cholesterol LDL Cholesterol Direct HDL Cholesterol PTH Intact Urine pH Urine WBC (Auto) Urine Creatinine Urine Total Protein Fluid Total Protein Vancomycin Trough Rheumatoid Factor Complement C4 Miscellaneous Test Crossmatch 11/30/16 11/30/16 11/30/16 04:17 04:17 04:32 WBC 12.0 H RBC 2.80 L Hgb 7.8 L Hct 23.6 L MCV MCH MCHC RDW 16.6 H Plt Count Lymph % (Auto) [place] % (Auto) 11.3 H Lymph # [place] # 1.4 H Baso # Seg Neutrophils % Seg Neuts % (Manual) Lymphocytes % (Manual) Monocytes % (Manual) Eosinophils % (Manual) Basophils % (Manual) Nucleated RBC % Seg Neutrophils # 8.2 H Seg Neutrophils # Man Lymphocytes # (Manual) Monocytes # (Manual) Eosinophils # (Manual) Basophils # (Manual) PT INR Fibrinogen dRVVT Confirm Interp Factor V Activity POC ABG pH POC ABG pCO2 POC ABG pO2 ABG pO2 ABG HCO3 ABG Base Excess ABG Hemoglobin Oxyhemoglobin Sodium 169 H* D Potassium 5.1 H Chloride 121.5 H Carbon Dioxide BUN 34 H Creatinine 1.3 H D Glucose 133 H POC Glucose 131 H Lactic Acid Calcium 10.3 H Phosphorus Magnesium Direct Bilirubin AST ALT Alkaline Phosphatase Lactate Dehydrogenase Troponin T C-Reactive Protein Total Protein Albumin Prealbumin Triglycerides Cholesterol LDL Cholesterol Direct HDL Cholesterol PTH Intact Urine pH Urine WBC (Auto) Urine Creatinine Urine Total Protein Fluid Total Protein Vancomycin Trough Rheumatoid Factor Complement C4 Miscellaneous Test Crossmatch 11/30/16 11/30/16 11/30/16 05:45 11:10 17:26 WBC RBC Hgb Hct MCV MCH MCHC RDW Plt Count Lymph % (Auto) [place] % (Auto) Lymph # [place] # Baso # Seg Neutrophils % Seg Neuts % (Manual) Lymphocytes % (Manual) Monocytes % (Manual) Eosinophils % (Manual) Basophils % (Manual) Nucleated RBC % Seg Neutrophils # Seg Neutrophils # Man Lymphocytes # (Manual) Monocytes # (Manual) Eosinophils # (Manual) Basophils # (Manual) PT INR Fibrinogen dRVVT Confirm Interp Factor V Activity POC ABG pH POC ABG pCO2 POC ABG pO2 ABG pO2 ABG HCO3 ABG Base Excess ABG Hemoglobin Oxyhemoglobin Sodium Potassium Chloride Carbon Dioxide BUN 45 H Creatinine 1.6 H Glucose 131 H POC Glucose 146 H 134 H Lactic Acid Calcium Phosphorus Magnesium Direct Bilirubin AST ALT Alkaline Phosphatase Lactate Dehydrogenase Troponin T C-Reactive Protein Total Protein Albumin Prealbumin Triglycerides Cholesterol LDL Cholesterol Direct HDL Cholesterol PTH Intact Urine pH Urine WBC (Auto) Urine Creatinine Urine Total Protein Fluid Total Protein Vancomycin Trough Rheumatoid Factor Complement C4 Miscellaneous Test Crossmatch 11/30/16 12/01/16 12/01/16 23:35 00:06 03:35 WBC RBC Hgb Hct MCV MCH MCHC RDW Plt Count Lymph % (Auto) [place] % (Auto) Lymph # [place] # Baso # Seg Neutrophils % Seg Neuts % (Manual) Lymphocytes % (Manual) Monocytes % (Manual) Eosinophils % (Manual) Basophils % (Manual) Nucleated RBC % Seg Neutrophils # Seg Neutrophils # Man Lymphocytes # (Manual) Monocytes # (Manual) Eosinophils # (Manual) Basophils # (Manual) PT INR Fibrinogen dRVVT Confirm Interp Factor V Activity POC ABG pH POC ABG pCO2 POC ABG pO2 ABG pO2 ABG HCO3 ABG Base Excess ABG Hemoglobin 6.9 L Oxyhemoglobin Sodium Potassium Chloride Carbon Dioxide BUN 58 H Creatinine 1.8 H Glucose 146 H POC Glucose 151 H Lactic Acid Calcium Phosphorus Magnesium Direct Bilirubin AST ALT Alkaline Phosphatase Lactate Dehydrogenase Troponin T C-Reactive Protein Total Protein Albumin Prealbumin Triglycerides Cholesterol LDL Cholesterol Direct HDL Cholesterol PTH Intact Urine pH Urine WBC (Auto) Urine Creatinine Urine Total Protein Fluid Total Protein Vancomycin Trough Rheumatoid Factor Complement C4 Miscellaneous Test Crossmatch 12/01/16 12/01/16 12/01/16 03:35 05:47 11:52 WBC 12.3 H RBC 2.82 L Hgb 7.8 L Hct 23.7 L MCV MCH MCHC RDW 16.7 H Plt Count Lymph % (Auto) [place] % (Auto) 9.8 H Lymph # [place] # 1.2 H Baso # Seg Neutrophils % Seg Neuts % (Manual) Lymphocytes % (Manual) Monocytes % (Manual) Eosinophils % (Manual) Basophils % (Manual) Nucleated RBC % Seg Neutrophils # 8.4 H Seg Neutrophils # Man Lymphocytes # (Manual) Monocytes # (Manual) Eosinophils # (Manual) Basophils # (Manual) PT INR Fibrinogen dRVVT Confirm Interp Factor V Activity POC ABG pH POC ABG pCO2 POC ABG pO2 ABG pO2 ABG HCO3 ABG Base Excess ABG Hemoglobin Oxyhemoglobin Sodium Potassium Chloride Carbon Dioxide BUN Creatinine Glucose POC Glucose 152 H 152 H Lactic Acid Calcium Phosphorus Magnesium Direct Bilirubin AST ALT Alkaline Phosphatase Lactate Dehydrogenase Troponin T C-Reactive Protein Total Protein Albumin Prealbumin Triglycerides Cholesterol LDL Cholesterol Direct HDL Cholesterol PTH Intact Urine pH Urine WBC (Auto) Urine Creatinine Urine Total Protein Fluid Total Protein Vancomycin Trough Rheumatoid Factor Complement C4 Miscellaneous Test Crossmatch 12/01/16 12/01/16 12/02/16 17:40 23:41 05:00 WBC RBC Hgb Hct MCV MCH MCHC RDW Plt Count Lymph % (Auto) [place] % (Auto) Lymph # [place] # Baso # Seg Neutrophils % Seg Neuts % (Manual) Lymphocytes % (Manual) Monocytes % (Manual) Eosinophils % (Manual) Basophils % (Manual) Nucleated RBC % Seg Neutrophils # Seg Neutrophils # Man Lymphocytes # (Manual) Monocytes # (Manual) Eosinophils # (Manual) Basophils # (Manual) PT INR Fibrinogen dRVVT Confirm Interp Factor V Activity POC ABG pH POC ABG pCO2 POC ABG pO2 ABG pO2 ABG HCO3 ABG Base Excess ABG Hemoglobin Oxyhemoglobin Sodium Potassium Chloride Carbon Dioxide BUN 45 H Creatinine Glucose 115 H POC Glucose 140 H 144 H Lactic Acid Calcium Phosphorus Magnesium Direct Bilirubin AST ALT Alkaline Phosphatase Lactate Dehydrogenase Troponin T C-Reactive Protein Total Protein Albumin Prealbumin Triglycerides Cholesterol LDL Cholesterol Direct HDL Cholesterol PTH Intact Urine pH Urine WBC (Auto) Urine Creatinine Urine Total Protein Fluid Total Protein Vancomycin Trough Rheumatoid Factor Complement C4 Miscellaneous Test Crossmatch 12/02/16 12/02/16 12/02/16 05:31 11:20 17:38 WBC RBC Hgb Hct MCV MCH MCHC RDW Plt Count Lymph % (Auto) [place] % (Auto) Lymph # [place] # Baso # Seg Neutrophils % Seg Neuts % (Manual) Lymphocytes % (Manual) Monocytes % (Manual) Eosinophils % (Manual) Basophils % (Manual) Nucleated RBC % Seg Neutrophils # Seg Neutrophils # Man Lymphocytes # (Manual) Monocytes # (Manual) Eosinophils # (Manual) Basophils # (Manual) PT INR Fibrinogen dRVVT Confirm Interp Factor V Activity POC ABG pH POC ABG pCO2 POC ABG pO2 ABG pO2 ABG HCO3 ABG Base Excess ABG Hemoglobin Oxyhemoglobin Sodium Potassium Chloride Carbon Dioxide BUN Creatinine Glucose POC Glucose 136 H 177 H 139 H Lactic Acid Calcium Phosphorus Magnesium Direct Bilirubin AST ALT Alkaline Phosphatase Lactate Dehydrogenase Troponin T C-Reactive Protein Total Protein Albumin Prealbumin Triglycerides Cholesterol LDL Cholesterol Direct HDL Cholesterol PTH Intact Urine pH Urine WBC (Auto) Urine Creatinine Urine Total Protein Fluid Total Protein Vancomycin Trough Rheumatoid Factor Complement C4 Miscellaneous Test Crossmatch 12/02/16 12/03/16 12/03/16 23:43 04:00 04:00 WBC 20.4 H RBC 2.74 L Hgb 7.4 L Hct 23.6 L MCV MCH 27 L MCHC RDW 17.1 H Plt Count Lymph % (Auto) [place] % (Auto) Lymph # [place] # Baso # Seg Neutrophils % Seg Neuts % (Manual) 31.0 L Lymphocytes % (Manual) Monocytes % (Manual) Eosinophils % (Manual) Basophils % (Manual) Nucleated RBC % Seg Neutrophils # Seg Neutrophils # Man Lymphocytes # (Manual) Monocytes # (Manual) Eosinophils # (Manual) Basophils # (Manual) PT INR Fibrinogen dRVVT Confirm Interp Factor V Activity POC ABG pH POC ABG pCO2 POC ABG pO2 ABG pO2 ABG HCO3 ABG Base Excess ABG Hemoglobin Oxyhemoglobin Sodium Potassium Chloride Carbon Dioxide BUN 61 H Creatinine 1.6 H Glucose 119 H POC Glucose 158 H Lactic Acid Calcium Phosphorus Magnesium Direct Bilirubin AST ALT Alkaline Phosphatase Lactate Dehydrogenase Troponin T C-Reactive Protein Total Protein Albumin Prealbumin Triglycerides Cholesterol LDL Cholesterol Direct HDL Cholesterol PTH Intact Urine pH Urine WBC (Auto) Urine Creatinine Urine Total Protein Fluid Total Protein Vancomycin Trough Rheumatoid Factor Complement C4 Miscellaneous Test Crossmatch 12/03/16 12/03/16 12/03/16 05:02 12:11 18:16 WBC RBC Hgb Hct MCV MCH MCHC RDW Plt Count Lymph % (Auto) [place] % (Auto) Lymph # [place] # Baso # Seg Neutrophils % Seg Neuts % (Manual) Lymphocytes % (Manual) Monocytes % (Manual) Eosinophils % (Manual) Basophils % (Manual) Nucleated RBC % Seg Neutrophils # Seg Neutrophils # Man Lymphocytes # (Manual) Monocytes # (Manual) Eosinophils # (Manual) Basophils # (Manual) PT INR Fibrinogen dRVVT Confirm Interp Factor V Activity POC ABG pH POC ABG pCO2 POC ABG pO2 ABG pO2 ABG HCO3 ABG Base Excess ABG Hemoglobin Oxyhemoglobin Sodium Potassium Chloride Carbon Dioxide BUN Creatinine Glucose POC Glucose 146 H 157 H 124 H Lactic Acid Calcium Phosphorus Magnesium Direct Bilirubin AST ALT Alkaline Phosphatase Lactate Dehydrogenase Troponin T C-Reactive Protein Total Protein Albumin Prealbumin Triglycerides Cholesterol LDL Cholesterol Direct HDL Cholesterol PTH Intact Urine pH Urine WBC (Auto) Urine Creatinine Urine Total Protein Fluid Total Protein Vancomycin Trough Rheumatoid Factor Complement C4 Miscellaneous Test Crossmatch 12/03/16 12/04/16 12/04/16 23:41 04:00 04:45 WBC RBC Hgb Hct MCV MCH MCHC RDW Plt Count Lymph % (Auto) [place] % (Auto) Lymph # [place] # Baso # Seg Neutrophils % Seg Neuts % (Manual) Lymphocytes % (Manual) Monocytes % (Manual) Eosinophils % (Manual) Basophils % (Manual) Nucleated RBC % Seg Neutrophils # Seg Neutrophils # Man Lymphocytes # (Manual) Monocytes # (Manual) Eosinophils # (Manual) Basophils # (Manual) PT INR Fibrinogen dRVVT Confirm Interp Factor V Activity POC ABG pH POC ABG pCO2 POC ABG pO2 ABG pO2 ABG HCO3 ABG Base Excess ABG Hemoglobin Oxyhemoglobin Sodium Potassium Chloride Carbon Dioxide BUN 76 H Creatinine 1.6 H Glucose POC Glucose 130 H 136 H Lactic Acid Calcium Phosphorus Magnesium Direct Bilirubin AST ALT Alkaline Phosphatase 155 H Lactate Dehydrogenase Troponin T C-Reactive Protein Total Protein 5.5 L Albumin 1.5 L Prealbumin Triglycerides Cholesterol LDL Cholesterol Direct HDL Cholesterol PTH Intact Urine pH Urine WBC (Auto) Urine Creatinine Urine Total Protein Fluid Total Protein Vancomycin Trough Rheumatoid Factor Complement C4 Miscellaneous Test Crossmatch 12/04/16 12/04/16 12/05/16 12:08 17:23 00:10 WBC RBC Hgb Hct MCV MCH MCHC RDW Plt Count Lymph % (Auto) [place] % (Auto) Lymph # [place] # Baso # Seg Neutrophils % Seg Neuts % (Manual) Lymphocytes % (Manual) Monocytes % (Manual) Eosinophils % (Manual) Basophils % (Manual) Nucleated RBC % Seg Neutrophils # Seg Neutrophils # Man Lymphocytes # (Manual) Monocytes # (Manual) Eosinophils # (Manual) Basophils # (Manual) PT INR Fibrinogen dRVVT Confirm Interp Factor V Activity POC ABG pH POC ABG pCO2 POC ABG pO2 ABG pO2 ABG HCO3 ABG Base Excess ABG Hemoglobin Oxyhemoglobin Sodium Potassium Chloride Carbon Dioxide BUN Creatinine Glucose POC Glucose 114 H 129 H 124 H Lactic Acid Calcium Phosphorus Magnesium Direct Bilirubin AST ALT Alkaline Phosphatase Lactate Dehydrogenase Troponin T C-Reactive Protein Total Protein Albumin Prealbumin Triglycerides Cholesterol LDL Cholesterol Direct HDL Cholesterol PTH Intact Urine pH Urine WBC (Auto) Urine Creatinine Urine Total Protein Fluid Total Protein Vancomycin Trough Rheumatoid Factor Complement C4 Miscellaneous Test Crossmatch 12/05/16 12/05/16 12/05/16 05:00 05:00 05:18 WBC RBC Hgb Hct MCV MCH MCHC RDW Plt Count Lymph % (Auto) [place] % (Auto) Lymph # [place] # Baso # Seg Neutrophils % Seg Neuts % (Manual) Lymphocytes % (Manual) Monocytes % (Manual) Eosinophils % (Manual) Basophils % (Manual) Nucleated RBC % Seg Neutrophils # Seg Neutrophils # Man Lymphocytes # (Manual) Monocytes # (Manual) Eosinophils # (Manual) Basophils # (Manual) PT INR Fibrinogen dRVVT Confirm Interp Factor V Activity POC ABG pH POC ABG pCO2 POC ABG pO2 ABG pO2 ABG HCO3 ABG Base Excess ABG Hemoglobin Oxyhemoglobin Sodium Potassium Chloride Carbon Dioxide 21 L BUN 85 H Creatinine 1.9 H Glucose 131 H POC Glucose 154 H Lactic Acid Calcium Phosphorus Magnesium Direct Bilirubin AST ALT Alkaline Phosphatase Lactate Dehydrogenase Troponin T C-Reactive Protein 19.30 H Total Protein Albumin Prealbumin Triglycerides Cholesterol LDL Cholesterol Direct HDL Cholesterol PTH Intact Urine pH Urine WBC (Auto) Urine Creatinine Urine Total Protein Fluid Total Protein Vancomycin Trough Rheumatoid Factor Complement C4 Miscellaneous Test Crossmatch 12/05/16 12/05/16 12/05/16 11:43 17:46 23:25 WBC RBC Hgb Hct MCV MCH MCHC RDW Plt Count Lymph % (Auto) [place] % (Auto) Lymph # [place] # Baso # Seg Neutrophils % Seg Neuts % (Manual) Lymphocytes % (Manual) Monocytes % (Manual) Eosinophils % (Manual) Basophils % (Manual) Nucleated RBC % Seg Neutrophils # Seg Neutrophils # Man Lymphocytes # (Manual) Monocytes # (Manual) Eosinophils # (Manual) Basophils # (Manual) PT INR Fibrinogen dRVVT Confirm Interp Factor V Activity POC ABG pH POC ABG pCO2 POC ABG pO2 ABG pO2 ABG HCO3 ABG Base Excess ABG Hemoglobin Oxyhemoglobin Sodium Potassium Chloride Carbon Dioxide BUN Creatinine Glucose POC Glucose 117 H 113 H 111 H Lactic Acid Calcium Phosphorus Magnesium Direct Bilirubin AST ALT Alkaline Phosphatase Lactate Dehydrogenase Troponin T C-Reactive Protein Total Protein Albumin Prealbumin Triglycerides Cholesterol LDL Cholesterol Direct HDL Cholesterol PTH Intact Urine pH Urine WBC (Auto) Urine Creatinine Urine Total Protein Fluid Total Protein Vancomycin Trough Rheumatoid Factor Complement C4 Miscellaneous Test Crossmatch 12/05/16 12/06/16 12/06/16 Unknown 04:58 06:00 WBC RBC Hgb Hct MCV MCH MCHC RDW Plt Count Lymph % (Auto) [place] % (Auto) Lymph # [place] # Baso # Seg Neutrophils % Seg Neuts % (Manual) Lymphocytes % (Manual) Monocytes % (Manual) Eosinophils % (Manual) Basophils % (Manual) Nucleated RBC % Seg Neutrophils # Seg Neutrophils # Man Lymphocytes # (Manual) Monocytes # (Manual) Eosinophils # (Manual) Basophils # (Manual) PT INR Fibrinogen dRVVT Confirm Interp Factor V Activity POC ABG pH POC ABG pCO2 POC ABG pO2 ABG pO2 75.2 L ABG HCO3 ABG Base Excess -3.4 L ABG Hemoglobin 7.4 L Oxyhemoglobin 94.5 L Sodium Potassium Chloride Carbon Dioxide 20 L BUN 99 H Creatinine 2.1 H Glucose 126 H POC Glucose 145 H Lactic Acid Calcium Phosphorus 4.80 H Magnesium Direct Bilirubin AST ALT Alkaline Phosphatase Lactate Dehydrogenase Troponin T C-Reactive Protein Total Protein Albumin Prealbumin Triglycerides Cholesterol LDL Cholesterol Direct HDL Cholesterol PTH Intact Urine pH Urine WBC (Auto) Urine Creatinine Urine Total Protein Fluid Total Protein Vancomycin Trough Rheumatoid Factor Complement C4 Miscellaneous Test Crossmatch 12/06/16 12/06/16 12/06/16 06:46 11:54 17:55 WBC RBC Hgb 8.3 L Hct 26.4 L MCV MCH MCHC RDW Plt Count Lymph % (Auto) [place] % (Auto) Lymph # [place] # Baso # Seg Neutrophils % Seg Neuts % (Manual) Lymphocytes % (Manual) Monocytes % (Manual) Eosinophils % (Manual) Basophils % (Manual) Nucleated RBC % Seg Neutrophils # Seg Neutrophils # Man Lymphocytes # (Manual) Monocytes # (Manual) Eosinophils # (Manual) Basophils # (Manual) PT INR Fibrinogen dRVVT Confirm Interp Factor V Activity POC ABG pH POC ABG pCO2 POC ABG pO2 ABG pO2 ABG HCO3 ABG Base Excess ABG Hemoglobin Oxyhemoglobin Sodium Potassium Chloride Carbon Dioxide BUN Creatinine Glucose POC Glucose 126 H 157 H Lactic Acid Calcium Phosphorus Magnesium Direct Bilirubin AST ALT Alkaline Phosphatase Lactate Dehydrogenase Troponin T C-Reactive Protein Total Protein Albumin Prealbumin Triglycerides Cholesterol LDL Cholesterol Direct HDL Cholesterol PTH Intact Urine pH Urine WBC (Auto) Urine Creatinine Urine Total Protein Fluid Total Protein Vancomycin Trough Rheumatoid Factor Complement C4 Miscellaneous Test Crossmatch 12/06/16 12/07/16 12/07/16 23:59 05:34 06:30 WBC RBC Hgb Hct MCV MCH MCHC RDW Plt Count Lymph % (Auto) [place] % (Auto) Lymph # [place] # Baso # Seg Neutrophils % Seg Neuts % (Manual) Lymphocytes % (Manual) Monocytes % (Manual) Eosinophils % (Manual) Basophils % (Manual) Nucleated RBC % Seg Neutrophils # Seg Neutrophils # Man Lymphocytes # (Manual) Monocytes # (Manual) Eosinophils # (Manual) Basophils # (Manual) PT INR Fibrinogen dRVVT Confirm Interp Factor V Activity POC ABG pH POC ABG pCO2 POC ABG pO2 ABG pO2 ABG HCO3 ABG Base Excess ABG Hemoglobin Oxyhemoglobin Sodium Potassium Chloride Carbon Dioxide BUN 67 H Creatinine 1.4 H Glucose 126 H POC Glucose 129 H 129 H Lactic Acid Calcium Phosphorus Magnesium Direct Bilirubin AST ALT Alkaline Phosphatase Lactate Dehydrogenase Troponin T C-Reactive Protein Total Protein Albumin Prealbumin Triglycerides Cholesterol LDL Cholesterol Direct HDL Cholesterol PTH Intact Urine pH Urine WBC (Auto) Urine Creatinine Urine Total Protein Fluid Total Protein Vancomycin Trough Rheumatoid Factor Complement C4 Miscellaneous Test Crossmatch 12/07/16 12/07/16 12/07/16 06:30 08:00 09:45 WBC 18.8 H RBC 2.52 L Hgb 6.9 L 6.8 L Hct 21.2 L 21.1 L MCV MCH 27 L MCHC RDW 18.0 H Plt Count Lymph % (Auto) [place] % (Auto) 9.9 H Lymph # [place] # 1.9 H Baso # Seg Neutrophils % 71.8 H Seg Neuts % (Manual) Lymphocytes % (Manual) Monocytes % (Manual) Eosinophils % (Manual) Basophils % (Manual) Nucleated RBC % Seg Neutrophils # 13.5 H Seg Neutrophils # Man Lymphocytes # (Manual) Monocytes # (Manual) Eosinophils # (Manual) Basophils # (Manual) PT INR Fibrinogen dRVVT Confirm Interp Factor V Activity POC ABG pH POC ABG pCO2 POC ABG pO2 ABG pO2 ABG HCO3 ABG Base Excess ABG Hemoglobin Oxyhemoglobin Sodium Potassium Chloride Carbon Dioxide BUN Creatinine Glucose POC Glucose Lactic Acid Calcium Phosphorus Magnesium Direct Bilirubin AST ALT Alkaline Phosphatase Lactate Dehydrogenase Troponin T C-Reactive Protein Total Protein Albumin Prealbumin Triglycerides Cholesterol LDL Cholesterol Direct HDL Cholesterol PTH Intact Urine pH Urine WBC (Auto) Urine Creatinine Urine Total Protein Fluid Total Protein Vancomycin Trough Rheumatoid Factor Complement C4 Miscellaneous Test Crossmatch See Detail 12/07/16 12/07/16 12/07/16 11:44 18:19 23:59 WBC RBC Hgb Hct MCV MCH MCHC RDW Plt Count Lymph % (Auto) [place] % (Auto) Lymph # [place] # Baso # Seg Neutrophils % Seg Neuts % (Manual) Lymphocytes % (Manual) Monocytes % (Manual) Eosinophils % (Manual) Basophils % (Manual) Nucleated RBC % Seg Neutrophils # Seg Neutrophils # Man Lymphocytes # (Manual) Monocytes # (Manual) Eosinophils # (Manual) Basophils # (Manual) PT INR Fibrinogen dRVVT Confirm Interp Factor V Activity POC ABG pH POC ABG pCO2 POC ABG pO2 ABG pO2 ABG HCO3 ABG Base Excess ABG Hemoglobin Oxyhemoglobin Sodium Potassium Chloride Carbon Dioxide BUN Creatinine Glucose POC Glucose 137 H 138 H 133 H Lactic Acid Calcium Phosphorus Magnesium Direct Bilirubin AST ALT Alkaline Phosphatase Lactate Dehydrogenase Troponin T C-Reactive Protein Total Protein Albumin Prealbumin Triglycerides Cholesterol LDL Cholesterol Direct HDL Cholesterol PTH Intact Urine pH Urine WBC (Auto) Urine Creatinine Urine Total Protein Fluid Total Protein Vancomycin Trough Rheumatoid Factor Complement C4 Miscellaneous Test Crossmatch 12/08/16 12/08/16 12/08/16 05:25 05:30 05:30 WBC 23.8 H RBC 2.88 L Hgb 8.1 L Hct 24.3 L MCV MCH MCHC RDW 16.7 H Plt Count Lymph % (Auto) [place] % (Auto) Lymph # [place] # Baso # Seg Neutrophils % Seg Neuts % (Manual) 76.0 H Lymphocytes % (Manual) 9.0 L Monocytes % (Manual) 9.0 H Eosinophils % (Manual) Basophils % (Manual) Nucleated RBC % Seg Neutrophils # Seg Neutrophils # Man 18.1 H Lymphocytes # (Manual) Monocytes # (Manual) 2.1 H Eosinophils # (Manual) Basophils # (Manual) PT INR Fibrinogen dRVVT Confirm Interp Factor V Activity POC ABG pH POC ABG pCO2 POC ABG pO2 ABG pO2 ABG HCO3 ABG Base Excess ABG Hemoglobin Oxyhemoglobin Sodium Potassium Chloride Carbon Dioxide 21 L BUN 76 H Creatinine 1.6 H Glucose 133 H POC Glucose 177 H Lactic Acid Calcium Phosphorus Magnesium Direct Bilirubin AST ALT Alkaline Phosphatase Lactate Dehydrogenase Troponin T C-Reactive Protein Total Protein Albumin Prealbumin Triglycerides Cholesterol LDL Cholesterol Direct HDL Cholesterol PTH Intact Urine pH Urine WBC (Auto) Urine Creatinine Urine Total Protein Fluid Total Protein Vancomycin Trough Rheumatoid Factor Complement C4 Miscellaneous Test Crossmatch 12/08/16 12/08/16 12/09/16 11:45 18:00 00:00 WBC RBC Hgb Hct MCV MCH MCHC RDW Plt Count Lymph % (Auto) [place] % (Auto) Lymph # [place] # Baso # Seg Neutrophils % Seg Neuts % (Manual) Lymphocytes % (Manual) Monocytes % (Manual) Eosinophils % (Manual) Basophils % (Manual) Nucleated RBC % Seg Neutrophils # Seg Neutrophils # Man Lymphocytes # (Manual) Monocytes # (Manual) Eosinophils # (Manual) Basophils # (Manual) PT INR Fibrinogen dRVVT Confirm Interp Factor V Activity POC ABG pH POC ABG pCO2 POC ABG pO2 ABG pO2 ABG HCO3 ABG Base Excess ABG Hemoglobin Oxyhemoglobin Sodium Potassium Chloride Carbon Dioxide BUN Creatinine Glucose POC Glucose 163 H 123 H 137 H Lactic Acid Calcium Phosphorus Magnesium Direct Bilirubin AST ALT Alkaline Phosphatase Lactate Dehydrogenase Troponin T C-Reactive Protein Total Protein Albumin Prealbumin Triglycerides Cholesterol LDL Cholesterol Direct HDL Cholesterol PTH Intact Urine pH Urine WBC (Auto) Urine Creatinine Urine Total Protein Fluid Total Protein Vancomycin Trough Rheumatoid Factor Complement C4 Miscellaneous Test Crossmatch 12/09/16 12/09/16 12/09/16 05:34 06:00 06:00 WBC 15.5 H RBC 2.87 L Hgb 8.0 L Hct 24.2 L MCV MCH MCHC RDW 17.2 H Plt Count Lymph % (Auto) [place] % (Auto) 11.6 H Lymph # [place] # 1.8 H Baso # Seg Neutrophils % 70.8 H Seg Neuts % (Manual) Lymphocytes % (Manual) Monocytes % (Manual) Eosinophils % (Manual) Basophils % (Manual) Nucleated RBC % Seg Neutrophils # 11.0 H Seg Neutrophils # Man Lymphocytes # (Manual) Monocytes # (Manual) Eosinophils # (Manual) Basophils # (Manual) PT INR Fibrinogen dRVVT Confirm Interp Factor V Activity POC ABG pH POC ABG pCO2 POC ABG pO2 ABG pO2 ABG HCO3 ABG Base Excess ABG Hemoglobin Oxyhemoglobin Sodium Potassium Chloride Carbon Dioxide BUN 51 H Creatinine Glucose 117 H POC Glucose 136 H Lactic Acid Calcium Phosphorus Magnesium Direct Bilirubin AST ALT Alkaline Phosphatase Lactate Dehydrogenase Troponin T C-Reactive Protein Total Protein Albumin Prealbumin Triglycerides Cholesterol LDL Cholesterol Direct HDL Cholesterol PTH Intact Urine pH Urine WBC (Auto) Urine Creatinine Urine Total Protein Fluid Total Protein Vancomycin Trough Rheumatoid Factor Complement C4 Miscellaneous Test Crossmatch 12/09/16 12/09/16 12/09/16 12:29 17:52 23:10 WBC RBC Hgb Hct MCV MCH MCHC RDW Plt Count Lymph % (Auto) [place] % (Auto) Lymph # [place] # Baso # Seg Neutrophils % Seg Neuts % (Manual) Lymphocytes % (Manual) Monocytes % (Manual) Eosinophils % (Manual) Basophils % (Manual) Nucleated RBC % Seg Neutrophils # Seg Neutrophils # Man Lymphocytes # (Manual) Monocytes # (Manual) Eosinophils # (Manual) Basophils # (Manual) PT INR Fibrinogen dRVVT Confirm Interp Factor V Activity POC ABG pH POC ABG pCO2 POC ABG pO2 ABG pO2 ABG HCO3 ABG Base Excess ABG Hemoglobin Oxyhemoglobin Sodium Potassium Chloride Carbon Dioxide BUN Creatinine Glucose POC Glucose 139 H 140 H 129 H Lactic Acid Calcium Phosphorus Magnesium Direct Bilirubin AST ALT Alkaline Phosphatase Lactate Dehydrogenase Troponin T C-Reactive Protein Total Protein Albumin Prealbumin Triglycerides Cholesterol LDL Cholesterol Direct HDL Cholesterol PTH Intact Urine pH Urine WBC (Auto) Urine Creatinine Urine Total Protein Fluid Total Protein Vancomycin Trough Rheumatoid Factor Complement C4 Miscellaneous Test Crossmatch 12/10/16 12/10/16 12/10/16 05:00 05:00 06:54 WBC 15.7 H RBC 2.87 L Hgb 8.2 L Hct 24.4 L MCV MCH MCHC RDW 17.2 H Plt Count Lymph % (Auto) [place] % (Auto) 8.3 H Lymph # [place] # 1.3 H Baso # Seg Neutrophils % 72.8 H Seg Neuts % (Manual) Lymphocytes % (Manual) Monocytes % (Manual) Eosinophils % (Manual) Basophils % (Manual) Nucleated RBC % Seg Neutrophils # 11.4 H Seg Neutrophils # Man Lymphocytes # (Manual) Monocytes # (Manual) Eosinophils # (Manual) Basophils # (Manual) PT INR Fibrinogen dRVVT Confirm Interp Factor V Activity POC ABG pH POC ABG pCO2 POC ABG pO2 ABG pO2 ABG HCO3 ABG Base Excess ABG Hemoglobin Oxyhemoglobin Sodium Potassium Chloride Carbon Dioxide BUN 64 H Creatinine 1.4 H Glucose 134 H POC Glucose 154 H Lactic Acid Calcium Phosphorus Magnesium Direct Bilirubin AST ALT Alkaline Phosphatase Lactate Dehydrogenase Troponin T C-Reactive Protein Total Protein Albumin Prealbumin Triglycerides Cholesterol LDL Cholesterol Direct HDL Cholesterol PTH Intact Urine pH Urine WBC (Auto) Urine Creatinine Urine Total Protein Fluid Total Protein Vancomycin Trough Rheumatoid Factor Complement C4 Miscellaneous Test Crossmatch 12/10/16 12/10/16 12/10/16 11:58 17:29 23:52 WBC RBC Hgb Hct MCV MCH MCHC RDW Plt Count Lymph % (Auto) [place] % (Auto) Lymph # [place] # Baso # Seg Neutrophils % Seg Neuts % (Manual) Lymphocytes % (Manual) Monocytes % (Manual) Eosinophils % (Manual) Basophils % (Manual) Nucleated RBC % Seg Neutrophils # Seg Neutrophils # Man Lymphocytes # (Manual) Monocytes # (Manual) Eosinophils # (Manual) Basophils # (Manual) PT INR Fibrinogen dRVVT Confirm Interp Factor V Activity POC ABG pH POC ABG pCO2 POC ABG pO2 ABG pO2 ABG HCO3 ABG Base Excess ABG Hemoglobin Oxyhemoglobin Sodium Potassium Chloride Carbon Dioxide BUN Creatinine Glucose POC Glucose 144 H 163 H 125 H Lactic Acid Calcium Phosphorus Magnesium Direct Bilirubin AST ALT Alkaline Phosphatase Lactate Dehydrogenase Troponin T C-Reactive Protein Total Protein Albumin Prealbumin Triglycerides Cholesterol LDL Cholesterol Direct HDL Cholesterol PTH Intact Urine pH Urine WBC (Auto) Urine Creatinine Urine Total Protein Fluid Total Protein Vancomycin Trough Rheumatoid Factor Complement C4 Miscellaneous Test Crossmatch 12/11/16 12/11/16 12/11/16 05:38 06:30 06:30 WBC 14.4 H RBC 2.76 L Hgb 7.7 L Hct 23.4 L MCV MCH MCHC RDW 17.2 H Plt Count Lymph % (Auto) [place] % (Auto) 8.8 H Lymph # [place] # 1.3 H Baso # Seg Neutrophils % 72.5 H Seg Neuts % (Manual) Lymphocytes % (Manual) Monocytes % (Manual) Eosinophils % (Manual) Basophils % (Manual) Nucleated RBC % Seg Neutrophils # 10.5 H Seg Neutrophils # Man Lymphocytes # (Manual) Monocytes # (Manual) Eosinophils # (Manual) Basophils # (Manual) PT INR Fibrinogen dRVVT Confirm Interp Factor V Activity POC ABG pH POC ABG pCO2 POC ABG pO2 ABG pO2 ABG HCO3 ABG Base Excess ABG Hemoglobin Oxyhemoglobin Sodium Potassium Chloride Carbon Dioxide BUN 43 H Creatinine Glucose 124 H POC Glucose 141 H Lactic Acid Calcium 8.3 L Phosphorus Magnesium 1.60 L Direct Bilirubin AST ALT Alkaline Phosphatase Lactate Dehydrogenase Troponin T C-Reactive Protein Total Protein Albumin Prealbumin Triglycerides Cholesterol LDL Cholesterol Direct HDL Cholesterol PTH Intact Urine pH Urine WBC (Auto) Urine Creatinine Urine Total Protein Fluid Total Protein Vancomycin Trough Rheumatoid Factor Complement C4 Miscellaneous Test Crossmatch 12/11/16 12/11/16 12/11/16 11:15 17:59 23:48 WBC RBC Hgb Hct MCV MCH MCHC RDW Plt Count Lymph % (Auto) [place] % (Auto) Lymph # [place] # Baso # Seg Neutrophils % Seg Neuts % (Manual) Lymphocytes % (Manual) Monocytes % (Manual) Eosinophils % (Manual) Basophils % (Manual) Nucleated RBC % Seg Neutrophils # Seg Neutrophils # Man Lymphocytes # (Manual) Monocytes # (Manual) Eosinophils # (Manual) Basophils # (Manual) PT INR Fibrinogen dRVVT Confirm Interp Factor V Activity POC ABG pH POC ABG pCO2 POC ABG pO2 ABG pO2 ABG HCO3 ABG Base Excess ABG Hemoglobin Oxyhemoglobin Sodium Potassium Chloride Carbon Dioxide BUN Creatinine Glucose POC Glucose 188 H 106 H 119 H Lactic Acid Calcium Phosphorus Magnesium Direct Bilirubin AST ALT Alkaline Phosphatase Lactate Dehydrogenase Troponin T C-Reactive Protein Total Protein Albumin Prealbumin Triglycerides Cholesterol LDL Cholesterol Direct HDL Cholesterol PTH Intact Urine pH Urine WBC (Auto) Urine Creatinine Urine Total Protein Fluid Total Protein Vancomycin Trough Rheumatoid Factor Complement C4 Miscellaneous Test Crossmatch 12/12/16 12/12/16 12/12/16 05:00 06:01 12:20 WBC 16.7 H RBC 2.87 L Hgb 8.0 L Hct 24.2 L MCV MCH MCHC RDW 17.6 H Plt Count Lymph % (Auto) [place] % (Auto) Lymph # [place] # 1.2 H Baso # Seg Neutrophils % 75.3 H Seg Neuts % (Manual) Lymphocytes % (Manual) Monocytes % (Manual) Eosinophils % (Manual) Basophils % (Manual) Nucleated RBC % Seg Neutrophils # 12.6 H Seg Neutrophils # Man Lymphocytes # (Manual) Monocytes # (Manual) Eosinophils # (Manual) Basophils # (Manual) PT INR Fibrinogen dRVVT Confirm Interp Factor V Activity POC ABG pH POC ABG pCO2 POC ABG pO2 ABG pO2 ABG HCO3 ABG Base Excess ABG Hemoglobin Oxyhemoglobin Sodium Potassium Chloride Carbon Dioxide BUN Creatinine Glucose POC Glucose 134 H 149 H Lactic Acid Calcium Phosphorus Magnesium Direct Bilirubin AST ALT Alkaline Phosphatase Lactate Dehydrogenase Troponin T C-Reactive Protein Total Protein Albumin Prealbumin Triglycerides Cholesterol LDL Cholesterol Direct HDL Cholesterol PTH Intact Urine pH Urine WBC (Auto) Urine Creatinine Urine Total Protein Fluid Total Protein Vancomycin Trough Rheumatoid Factor Complement C4 Miscellaneous Test Crossmatch 12/12/16 12/12/16 12/12/16 17:38 23:01 Unknown WBC RBC Hgb Hct MCV MCH MCHC RDW Plt Count Lymph % (Auto) [place] % (Auto) Lymph # [place] # Baso # Seg Neutrophils % Seg Neuts % (Manual) Lymphocytes % (Manual) Monocytes % (Manual) Eosinophils % (Manual) Basophils % (Manual) Nucleated RBC % Seg Neutrophils # Seg Neutrophils # Man Lymphocytes # (Manual) Monocytes # (Manual) Eosinophils # (Manual) Basophils # (Manual) PT INR Fibrinogen dRVVT Confirm Interp Factor V Activity POC ABG pH POC ABG pCO2 POC ABG pO2 ABG pO2 ABG HCO3 ABG Base Excess ABG Hemoglobin Oxyhemoglobin Sodium Potassium Chloride Carbon Dioxide BUN 60 H Creatinine 1.3 H Glucose 126 H POC Glucose 127 H 144 H Lactic Acid Calcium Phosphorus Magnesium Direct Bilirubin AST ALT Alkaline Phosphatase Lactate Dehydrogenase Troponin T C-Reactive Protein Total Protein Albumin Prealbumin Triglycerides Cholesterol LDL Cholesterol Direct HDL Cholesterol PTH Intact Urine pH Urine WBC (Auto) Urine Creatinine Urine Total Protein Fluid Total Protein Vancomycin Trough Rheumatoid Factor Complement C4 Miscellaneous Test Crossmatch 12/13/16 12/13/16 12/13/16 04:00 04:00 05:19 WBC 18.7 H RBC 2.89 L Hgb 8.3 L Hct 24.6 L MCV MCH MCHC RDW 17.5 H Plt Count Lymph % (Auto) [place] % (Auto) Lymph # [place] # 1.3 H Baso # Seg Neutrophils % 71.5 H Seg Neuts % (Manual) Lymphocytes % (Manual) Monocytes % (Manual) Eosinophils % (Manual) Basophils % (Manual) Nucleated RBC % Seg Neutrophils # 13.4 H Seg Neutrophils # Man Lymphocytes # (Manual) Monocytes # (Manual) Eosinophils # (Manual) Basophils # (Manual) PT INR Fibrinogen dRVVT Confirm Interp Factor V Activity POC ABG pH POC ABG pCO2 POC ABG pO2 ABG pO2 ABG HCO3 ABG Base Excess ABG Hemoglobin Oxyhemoglobin Sodium Potassium Chloride Carbon Dioxide BUN 73 H Creatinine 1.5 H Glucose 141 H POC Glucose 171 H Lactic Acid Calcium Phosphorus Magnesium Direct Bilirubin AST ALT Alkaline Phosphatase Lactate Dehydrogenase Troponin T C-Reactive Protein Total Protein Albumin Prealbumin Triglycerides Cholesterol LDL Cholesterol Direct HDL Cholesterol PTH Intact Urine pH Urine WBC (Auto) Urine Creatinine Urine Total Protein Fluid Total Protein Vancomycin Trough Rheumatoid Factor Complement C4 Miscellaneous Test Crossmatch 12/13/16 12/13/16 12/14/16 12:28 16:48 00:01 WBC RBC Hgb Hct MCV MCH MCHC RDW Plt Count Lymph % (Auto) [place] % (Auto) Lymph # [place] # Baso # Seg Neutrophils % Seg Neuts % (Manual) Lymphocytes % (Manual) Monocytes % (Manual) Eosinophils % (Manual) Basophils % (Manual) Nucleated RBC % Seg Neutrophils # Seg Neutrophils # Man Lymphocytes # (Manual) Monocytes # (Manual) Eosinophils # (Manual) Basophils # (Manual) PT INR Fibrinogen dRVVT Confirm Interp Factor V Activity POC ABG pH POC ABG pCO2 POC ABG pO2 ABG pO2 ABG HCO3 ABG Base Excess ABG Hemoglobin Oxyhemoglobin Sodium Potassium Chloride Carbon Dioxide BUN Creatinine Glucose POC Glucose 206 H 173 H 139 H Lactic Acid Calcium Phosphorus Magnesium Direct Bilirubin AST ALT Alkaline Phosphatase Lactate Dehydrogenase Troponin T C-Reactive Protein Total Protein Albumin Prealbumin Triglycerides Cholesterol LDL Cholesterol Direct HDL Cholesterol PTH Intact Urine pH Urine WBC (Auto) Urine Creatinine Urine Total Protein Fluid Total Protein Vancomycin Trough Rheumatoid Factor Complement C4 Miscellaneous Test Crossmatch 12/14/16 12/14/16 12/14/16 05:16 06:10 11:17 WBC RBC Hgb Hct MCV MCH MCHC RDW Plt Count Lymph % (Auto) [place] % (Auto) Lymph # [place] # Baso # Seg Neutrophils % Seg Neuts % (Manual) Lymphocytes % (Manual) Monocytes % (Manual) Eosinophils % (Manual) Basophils % (Manual) Nucleated RBC % Seg Neutrophils # Seg Neutrophils # Man Lymphocytes # (Manual) Monocytes # (Manual) Eosinophils # (Manual) Basophils # (Manual) PT INR Fibrinogen dRVVT Confirm Interp Factor V Activity POC ABG pH POC ABG pCO2 POC ABG pO2 ABG pO2 ABG HCO3 ABG Base Excess ABG Hemoglobin Oxyhemoglobin Sodium Potassium Chloride Carbon Dioxide BUN 57 H Creatinine 1.4 H Glucose 135 H POC Glucose 158 H 137 H Lactic Acid Calcium Phosphorus Magnesium Direct Bilirubin AST ALT Alkaline Phosphatase Lactate Dehydrogenase Troponin T C-Reactive Protein Total Protein Albumin Prealbumin Triglycerides Cholesterol LDL Cholesterol Direct HDL Cholesterol PTH Intact Urine pH Urine WBC (Auto) Urine Creatinine Urine Total Protein Fluid Total Protein Vancomycin Trough Rheumatoid Factor Complement C4 Miscellaneous Test Crossmatch 12/14/16 12/14/16 12/15/16 17:52 23:27 04:00 WBC RBC Hgb Hct MCV MCH MCHC RDW Plt Count Lymph % (Auto) [place] % (Auto) Lymph # [place] # Baso # Seg Neutrophils % Seg Neuts % (Manual) Lymphocytes % (Manual) Monocytes % (Manual) Eosinophils % (Manual) Basophils % (Manual) Nucleated RBC % Seg Neutrophils # Seg Neutrophils # Man Lymphocytes # (Manual) Monocytes # (Manual) Eosinophils # (Manual) Basophils # (Manual) PT INR Fibrinogen dRVVT Confirm Interp Factor V Activity POC ABG pH POC ABG pCO2 POC ABG pO2 ABG pO2 ABG HCO3 ABG Base Excess ABG Hemoglobin Oxyhemoglobin Sodium Potassium Chloride 97.9 L Carbon Dioxide BUN 75 H Creatinine 1.6 H Glucose 122 H POC Glucose 149 H 163 H Lactic Acid Calcium Phosphorus 5.20 H Magnesium Direct Bilirubin AST ALT Alkaline Phosphatase Lactate Dehydrogenase Troponin T C-Reactive Protein Total Protein Albumin Prealbumin Triglycerides Cholesterol LDL Cholesterol Direct HDL Cholesterol PTH Intact Urine pH Urine WBC (Auto) Urine Creatinine Urine Total Protein Fluid Total Protein Vancomycin Trough Rheumatoid Factor Complement C4 Miscellaneous Test Crossmatch 12/15/16 12/15/16 12/15/16 05:50 11:24 17:01 WBC RBC Hgb Hct MCV MCH MCHC RDW Plt Count Lymph % (Auto) [place] % (Auto) Lymph # [place] # Baso # Seg Neutrophils % Seg Neuts % (Manual) Lymphocytes % (Manual) Monocytes % (Manual) Eosinophils % (Manual) Basophils % (Manual) Nucleated RBC % Seg Neutrophils # Seg Neutrophils # Man Lymphocytes # (Manual) Monocytes # (Manual) Eosinophils # (Manual) Basophils # (Manual) PT INR Fibrinogen dRVVT Confirm Interp Factor V Activity POC ABG pH POC ABG pCO2 POC ABG pO2 ABG pO2 ABG HCO3 ABG Base Excess ABG Hemoglobin Oxyhemoglobin Sodium Potassium Chloride Carbon Dioxide BUN Creatinine Glucose POC Glucose 150 H 146 H 167 H Lactic Acid Calcium Phosphorus Magnesium Direct Bilirubin AST ALT Alkaline Phosphatase Lactate Dehydrogenase Troponin T C-Reactive Protein Total Protein Albumin Prealbumin Triglycerides Cholesterol LDL Cholesterol Direct HDL Cholesterol PTH Intact Urine pH Urine WBC (Auto) Urine Creatinine Urine Total Protein Fluid Total Protein Vancomycin Trough Rheumatoid Factor Complement C4 Miscellaneous Test Crossmatch 12/15/16 12/16/16 12/16/16 23:34 05:25 11:24 WBC RBC Hgb Hct MCV MCH MCHC RDW Plt Count Lymph % (Auto) [place] % (Auto) Lymph # [place] # Baso # Seg Neutrophils % Seg Neuts % (Manual) Lymphocytes % (Manual) Monocytes % (Manual) Eosinophils % (Manual) Basophils % (Manual) Nucleated RBC % Seg Neutrophils # Seg Neutrophils # Man Lymphocytes # (Manual) Monocytes # (Manual) Eosinophils # (Manual) Basophils # (Manual) PT INR Fibrinogen dRVVT Confirm Interp Factor V Activity POC ABG pH POC ABG pCO2 POC ABG pO2 ABG pO2 ABG HCO3 ABG Base Excess ABG Hemoglobin Oxyhemoglobin Sodium Potassium Chloride Carbon Dioxide BUN Creatinine Glucose POC Glucose 127 H 139 H 165 H Lactic Acid Calcium Phosphorus Magnesium Direct Bilirubin AST ALT Alkaline Phosphatase Lactate Dehydrogenase Troponin T C-Reactive Protein Total Protein Albumin Prealbumin Triglycerides Cholesterol LDL Cholesterol Direct HDL Cholesterol PTH Intact Urine pH Urine WBC (Auto) Urine Creatinine Urine Total Protein Fluid Total Protein Vancomycin Trough Rheumatoid Factor Complement C4 Miscellaneous Test Crossmatch 12/16/16 12/16/16 12/16/16 15:30 16:25 17:31 WBC 17.8 H RBC 2.38 L Hgb 6.4 L Hct 20.3 L MCV MCH 27 L MCHC RDW 17.4 H Plt Count Lymph % (Auto) [place] % (Auto) Lymph # [place] # Baso # Seg Neutrophils % Seg Neuts % (Manual) Lymphocytes % (Manual) Monocytes % (Manual) 10.0 H Eosinophils % (Manual) Basophils % (Manual) Nucleated RBC % Seg Neutrophils # Seg Neutrophils # Man 8.5 H Lymphocytes # (Manual) Monocytes # (Manual) 1.8 H Eosinophils # (Manual) Basophils # (Manual) PT INR Fibrinogen dRVVT Confirm Interp Factor V Activity POC ABG pH POC ABG pCO2 POC ABG pO2 ABG pO2 ABG HCO3 ABG Base Excess ABG Hemoglobin Oxyhemoglobin Sodium Potassium Chloride Carbon Dioxide BUN Creatinine Glucose POC Glucose 176 H Lactic Acid Calcium Phosphorus Magnesium Direct Bilirubin AST ALT Alkaline Phosphatase Lactate Dehydrogenase Troponin T C-Reactive Protein Total Protein Albumin Prealbumin Triglycerides Cholesterol LDL Cholesterol Direct HDL Cholesterol PTH Intact Urine pH Urine WBC (Auto) Urine Creatinine Urine Total Protein Fluid Total Protein Vancomycin Trough Rheumatoid Factor Complement C4 Miscellaneous Test Crossmatch See Detail 12/17/16 12/17/16 12/17/16 00:14 04:00 05:00 WBC 20.0 H RBC 2.99 L Hgb 8.5 L Hct 25.7 L MCV MCH MCHC RDW 17.2 H Plt Count Lymph % (Auto) [place] % (Auto) Lymph # [place] # Baso # Seg Neutrophils % Seg Neuts % (Manual) Lymphocytes % (Manual) Monocytes % (Manual) Eosinophils % (Manual) Basophils % (Manual) Nucleated RBC % Seg Neutrophils # Seg Neutrophils # Man Lymphocytes # (Manual) Monocytes # (Manual) Eosinophils # (Manual) Basophils # (Manual) PT INR Fibrinogen dRVVT Confirm Interp Factor V Activity POC ABG pH POC ABG pCO2 POC ABG pO2 ABG pO2 ABG HCO3 ABG Base Excess ABG Hemoglobin Oxyhemoglobin Sodium Potassium Chloride 97.7 L Carbon Dioxide BUN 73 H Creatinine 1.7 H Glucose 136 H POC Glucose 148 H Lactic Acid Calcium Phosphorus 2.20 L Magnesium 2.70 H Direct Bilirubin AST ALT Alkaline Phosphatase Lactate Dehydrogenase Troponin T C-Reactive Protein Total Protein Albumin Prealbumin Triglycerides Cholesterol LDL Cholesterol Direct HDL Cholesterol PTH Intact Urine pH Urine WBC (Auto) Urine Creatinine Urine Total Protein Fluid Total Protein Vancomycin Trough Rheumatoid Factor Complement C4 Miscellaneous Test Crossmatch 12/17/16 12/17/16 12/17/16 05:39 12:50 16:32 WBC RBC Hgb Hct MCV MCH MCHC RDW Plt Count Lymph % (Auto) [place] % (Auto) Lymph # [place] # Baso # Seg Neutrophils % Seg Neuts % (Manual) Lymphocytes % (Manual) Monocytes % (Manual) Eosinophils % (Manual) Basophils % (Manual) Nucleated RBC % Seg Neutrophils # Seg Neutrophils # Man Lymphocytes # (Manual) Monocytes # (Manual) Eosinophils # (Manual) Basophils # (Manual) PT INR Fibrinogen dRVVT Confirm Interp Factor V Activity POC ABG pH POC ABG pCO2 POC ABG pO2 ABG pO2 ABG HCO3 ABG Base Excess ABG Hemoglobin Oxyhemoglobin Sodium Potassium Chloride Carbon Dioxide BUN Creatinine Glucose POC Glucose 162 H 146 H 169 H Lactic Acid Calcium Phosphorus Magnesium Direct Bilirubin AST ALT Alkaline Phosphatase Lactate Dehydrogenase Troponin T C-Reactive Protein Total Protein Albumin Prealbumin Triglycerides Cholesterol LDL Cholesterol Direct HDL Cholesterol PTH Intact Urine pH Urine WBC (Auto) Urine Creatinine Urine Total Protein Fluid Total Protein Vancomycin Trough Rheumatoid Factor Complement C4 Miscellaneous Test Crossmatch 12/17/16 12/18/16 12/18/16 23:57 05:00 05:32 WBC RBC Hgb Hct MCV MCH MCHC RDW Plt Count Lymph % (Auto) [place] % (Auto) Lymph # [place] # Baso # Seg Neutrophils % Seg Neuts % (Manual) Lymphocytes % (Manual) Monocytes % (Manual) Eosinophils % (Manual) Basophils % (Manual) Nucleated RBC % Seg Neutrophils # Seg Neutrophils # Man Lymphocytes # (Manual) Monocytes # (Manual) Eosinophils # (Manual) Basophils # (Manual) PT INR Fibrinogen dRVVT Confirm Interp Factor V Activity POC ABG pH POC ABG pCO2 POC ABG pO2 ABG pO2 ABG HCO3 ABG Base Excess ABG Hemoglobin Oxyhemoglobin Sodium Potassium Chloride 97.0 L Carbon Dioxide BUN 63 H Creatinine 1.4 H Glucose 174 H POC Glucose 145 H 201 H Lactic Acid Calcium Phosphorus 1.70 L D Magnesium Direct Bilirubin AST ALT Alkaline Phosphatase 257 H Lactate Dehydrogenase Troponin T C-Reactive Protein Total Protein 5.9 L Albumin 1.8 L Prealbumin Triglycerides Cholesterol LDL Cholesterol Direct HDL Cholesterol PTH Intact Urine pH Urine WBC (Auto) Urine Creatinine Urine Total Protein Fluid Total Protein Vancomycin Trough Rheumatoid Factor Complement C4 Miscellaneous Test Crossmatch 12/18/16 12/18/16 12/18/16 11:43 16:52 23:52 WBC RBC Hgb Hct MCV MCH MCHC RDW Plt Count Lymph % (Auto) [place] % (Auto) Lymph # [place] # Baso # Seg Neutrophils % Seg Neuts % (Manual) Lymphocytes % (Manual) Monocytes % (Manual) Eosinophils % (Manual) Basophils % (Manual) Nucleated RBC % Seg Neutrophils # Seg Neutrophils # Man Lymphocytes # (Manual) Monocytes # (Manual) Eosinophils # (Manual) Basophils # (Manual) PT INR Fibrinogen dRVVT Confirm Interp Factor V Activity POC ABG pH POC ABG pCO2 POC ABG pO2 ABG pO2 ABG HCO3 ABG Base Excess ABG Hemoglobin Oxyhemoglobin Sodium Potassium Chloride Carbon Dioxide BUN Creatinine Glucose POC Glucose 177 H 110 H 162 H Lactic Acid Calcium Phosphorus Magnesium Direct Bilirubin AST ALT Alkaline Phosphatase Lactate Dehydrogenase Troponin T C-Reactive Protein Total Protein Albumin Prealbumin Triglycerides Cholesterol LDL Cholesterol Direct HDL Cholesterol PTH Intact Urine pH Urine WBC (Auto) Urine Creatinine Urine Total Protein Fluid Total Protein Vancomycin Trough Rheumatoid Factor Complement C4 Miscellaneous Test Crossmatch 12/19/16 12/19/16 12/19/16 05:02 05:24 09:30 WBC 20.1 H RBC 2.73 L Hgb 7.6 L Hct 23.6 L MCV MCH MCHC RDW 17.6 H Plt Count Lymph % (Auto) [place] % (Auto) Lymph # [place] # Baso # Seg Neutrophils % Seg Neuts % (Manual) Lymphocytes % (Manual) 13.0 L Monocytes % (Manual) Eosinophils % (Manual) Basophils % (Manual) Nucleated RBC % 1.0 H Seg Neutrophils # Seg Neutrophils # Man 12.9 H Lymphocytes # (Manual) Monocytes # (Manual) 1.4 H Eosinophils # (Manual) Basophils # (Manual) 0.2 H PT INR Fibrinogen dRVVT Confirm Interp Factor V Activity POC ABG pH POC ABG pCO2 POC ABG pO2 ABG pO2 ABG HCO3 ABG Base Excess ABG Hemoglobin Oxyhemoglobin Sodium Potassium Chloride 97.8 L Carbon Dioxide BUN 84 H Creatinine 1.6 H Glucose 133 H POC Glucose 134 H Lactic Acid Calcium Phosphorus Magnesium Direct Bilirubin AST ALT Alkaline Phosphatase Lactate Dehydrogenase Troponin T C-Reactive Protein Total Protein Albumin Prealbumin Triglycerides Cholesterol LDL Cholesterol Direct HDL Cholesterol PTH Intact Urine pH Urine WBC (Auto) Urine Creatinine Urine Total Protein Fluid Total Protein Vancomycin Trough Rheumatoid Factor Complement C4 Miscellaneous Test Crossmatch 12/19/16 12/19/16 12/19/16 09:36 11:12 18:29 WBC RBC Hgb Hct MCV MCH MCHC RDW Plt Count Lymph % (Auto) [place] % (Auto) Lymph # [place] # Baso # Seg Neutrophils % Seg Neuts % (Manual) Lymphocytes % (Manual) Monocytes % (Manual) Eosinophils % (Manual) Basophils % (Manual) Nucleated RBC % Seg Neutrophils # Seg Neutrophils # Man Lymphocytes # (Manual) Monocytes # (Manual) Eosinophils # (Manual) Basophils # (Manual) PT INR Fibrinogen dRVVT Confirm Interp Factor V Activity POC ABG pH 7.503 H POC ABG pCO2 30.1 L POC ABG pO2 ABG pO2 ABG HCO3 ABG Base Excess ABG Hemoglobin Oxyhemoglobin Sodium Potassium Chloride Carbon Dioxide BUN Creatinine Glucose POC Glucose 138 H 156 H Lactic Acid Calcium Phosphorus Magnesium Direct Bilirubin AST ALT Alkaline Phosphatase Lactate Dehydrogenase Troponin T C-Reactive Protein Total Protein Albumin Prealbumin Triglycerides Cholesterol LDL Cholesterol Direct HDL Cholesterol PTH Intact Urine pH Urine WBC (Auto) Urine Creatinine Urine Total Protein Fluid Total Protein Vancomycin Trough Rheumatoid Factor Complement C4 Miscellaneous Test Crossmatch 12/20/16 12/20/16 12/20/16 00:03 06:17 07:07 WBC RBC Hgb Hct MCV MCH MCHC RDW Plt Count Lymph % (Auto) [place] % (Auto) Lymph # [place] # Baso # Seg Neutrophils % Seg Neuts % (Manual) Lymphocytes % (Manual) Monocytes % (Manual) Eosinophils % (Manual) Basophils % (Manual) Nucleated RBC % Seg Neutrophils # Seg Neutrophils # Man Lymphocytes # (Manual) Monocytes # (Manual) Eosinophils # (Manual) Basophils # (Manual) PT INR Fibrinogen dRVVT Confirm Interp Factor V Activity POC ABG pH POC ABG pCO2 POC ABG pO2 ABG pO2 ABG HCO3 ABG Base Excess ABG Hemoglobin Oxyhemoglobin Sodium Potassium Chloride 97.1 L Carbon Dioxide 20 L BUN 97 H Creatinine 1.8 H Glucose 153 H POC Glucose 152 H 175 H Lactic Acid Calcium Phosphorus Magnesium Direct Bilirubin AST ALT Alkaline Phosphatase Lactate Dehydrogenase Troponin T C-Reactive Protein Total Protein Albumin Prealbumin Triglycerides Cholesterol LDL Cholesterol Direct HDL Cholesterol PTH Intact Urine pH Urine WBC (Auto) Urine Creatinine Urine Total Protein Fluid Total Protein Vancomycin Trough Rheumatoid Factor Complement C4 Miscellaneous Test Crossmatch 12/20/16 12/20/16 12/20/16 12:00 17:42 23:53 WBC RBC Hgb Hct MCV MCH MCHC RDW Plt Count Lymph % (Auto) [place] % (Auto) Lymph # [place] # Baso # Seg Neutrophils % Seg Neuts % (Manual) Lymphocytes % (Manual) Monocytes % (Manual) Eosinophils % (Manual) Basophils % (Manual) Nucleated RBC % Seg Neutrophils # Seg Neutrophils # Man Lymphocytes # (Manual) Monocytes # (Manual) Eosinophils # (Manual) Basophils # (Manual) PT INR Fibrinogen dRVVT Confirm Interp Factor V Activity POC ABG pH POC ABG pCO2 POC ABG pO2 ABG pO2 ABG HCO3 ABG Base Excess ABG Hemoglobin Oxyhemoglobin Sodium Potassium Chloride Carbon Dioxide BUN Creatinine Glucose POC Glucose 141 H 156 H 132 H Lactic Acid Calcium Phosphorus Magnesium Direct Bilirubin AST ALT Alkaline Phosphatase Lactate Dehydrogenase Troponin T C-Reactive Protein Total Protein Albumin Prealbumin Triglycerides Cholesterol LDL Cholesterol Direct HDL Cholesterol PTH Intact Urine pH Urine WBC (Auto) Urine Creatinine Urine Total Protein Fluid Total Protein Vancomycin Trough Rheumatoid Factor Complement C4 Miscellaneous Test Crossmatch 12/21/16 12/21/16 12/21/16 05:49 08:50 12:19 WBC RBC Hgb Hct MCV MCH MCHC RDW Plt Count Lymph % (Auto) [place] % (Auto) Lymph # [place] # [place] # Seg Neutrophils % Seg Neuts % (Manual) Lymphocytes % (Manual) Monocytes % (Manual) Eosinophils % (Manual) Basophils % (Manual) Nucleated RBC % Seg Neutrophils # Seg Neutrophils # Man Lymphocytes # (Manual) Monocytes # (Manual) Eosinophils # (Manual) Basophils # (Manual) PT INR Fibrinogen dRVVT Confirm Interp Factor V Activity POC ABG pH POC ABG pCO2 POC ABG pO2 ABG pO2 ABG HCO3 ABG Base Excess ABG Hemoglobin Oxyhemoglobin Sodium Potassium 5.2 H D Chloride Carbon Dioxide BUN 63 H Creatinine Glucose 122 H POC Glucose 132 H 136 H Lactic Acid Calcium 8.3 L Phosphorus Magnesium Direct Bilirubin AST ALT Alkaline Phosphatase Lactate Dehydrogenase Troponin T C-Reactive Protein Total Protein Albumin Prealbumin Triglycerides Cholesterol LDL Cholesterol Direct HDL Cholesterol PTH Intact Urine pH Urine WBC (Auto) Urine Creatinine Urine Total Protein Fluid Total Protein Vancomycin Trough Rheumatoid Factor Complement C4 Miscellaneous Test Crossmatch 12/21/16 12/21/16 12/22/16 17:22 23:58 05:49 WBC RBC Hgb Hct MCV MCH MCHC RDW Plt Count Lymph % (Auto) [place] % (Auto) Lymph # [place] # Baso # Seg Neutrophils % Seg Neuts % (Manual) Lymphocytes % (Manual) Monocytes % (Manual) Eosinophils % (Manual) Basophils % (Manual) Nucleated RBC % Seg Neutrophils # Seg Neutrophils # Man Lymphocytes # (Manual) Monocytes # (Manual) Eosinophils # (Manual) Basophils # (Manual) PT INR Fibrinogen dRVVT Confirm Interp Factor V Activity POC ABG pH POC ABG pCO2 POC ABG pO2 ABG pO2 ABG HCO3 ABG Base Excess ABG Hemoglobin Oxyhemoglobin Sodium Potassium Chloride Carbon Dioxide BUN Creatinine Glucose POC Glucose 135 H 149 H 140 H Lactic Acid Calcium Phosphorus Magnesium Direct Bilirubin AST ALT Alkaline Phosphatase Lactate Dehydrogenase Troponin T C-Reactive Protein Total Protein Albumin Prealbumin Triglycerides Cholesterol LDL Cholesterol Direct HDL Cholesterol PTH Intact Urine pH Urine WBC (Auto) Urine Creatinine Urine Total Protein Fluid Total Protein Vancomycin Trough Rheumatoid Factor Complement C4 Miscellaneous Test Crossmatch 12/22/16 12/22/16 12/22/16 06:10 11:17 17:31 WBC RBC Hgb Hct MCV MCH MCHC RDW Plt Count Lymph % (Auto) [place] % (Auto) Lymph # [place] # Baso # Seg Neutrophils % Seg Neuts % (Manual) Lymphocytes % (Manual) Monocytes % (Manual) Eosinophils % (Manual) Basophils % (Manual) Nucleated RBC % Seg Neutrophils # Seg Neutrophils # Man Lymphocytes # (Manual) Monocytes # (Manual) Eosinophils # (Manual) Basophils # (Manual) PT INR Fibrinogen dRVVT Confirm Interp Factor V Activity POC ABG pH POC ABG pCO2 POC ABG pO2 ABG pO2 ABG HCO3 ABG Base Excess ABG Hemoglobin Oxyhemoglobin Sodium Potassium Chloride Carbon Dioxide BUN 76 H Creatinine 1.5 H Glucose 241 H POC Glucose 193 H 148 H Lactic Acid Calcium Phosphorus Magnesium Direct Bilirubin AST ALT Alkaline Phosphatase Lactate Dehydrogenase Troponin T C-Reactive Protein Total Protein Albumin Prealbumin Triglycerides Cholesterol LDL Cholesterol Direct HDL Cholesterol PTH Intact Urine pH Urine WBC (Auto) Urine Creatinine Urine Total Protein Fluid Total Protein Vancomycin Trough Rheumatoid Factor Complement C4 Miscellaneous Test Crossmatch 12/22/16 12/23/16 12/23/16 23:58 05:00 05:26 WBC RBC Hgb Hct MCV MCH MCHC RDW Plt Count Lymph % (Auto) [place] % (Auto) Lymph # [place] # Baso # Seg Neutrophils % Seg Neuts % (Manual) Lymphocytes % (Manual) Monocytes % (Manual) Eosinophils % (Manual) Basophils % (Manual) Nucleated RBC % Seg Neutrophils # Seg Neutrophils # Man Lymphocytes # (Manual) Monocytes # (Manual) Eosinophils # (Manual) Basophils # (Manual) PT INR Fibrinogen dRVVT Confirm Interp Factor V Activity POC ABG pH POC ABG pCO2 POC ABG pO2 ABG pO2 ABG HCO3 ABG Base Excess ABG Hemoglobin Oxyhemoglobin Sodium Potassium Chloride Carbon Dioxide BUN 49 H Creatinine Glucose 143 H POC Glucose 165 H 154 H Lactic Acid Calcium 8.2 L Phosphorus Magnesium 1.60 L Direct Bilirubin AST ALT Alkaline Phosphatase Lactate Dehydrogenase Troponin T C-Reactive Protein Total Protein Albumin Prealbumin Triglycerides Cholesterol LDL Cholesterol Direct HDL Cholesterol PTH Intact Urine pH Urine WBC (Auto) Urine Creatinine Urine Total Protein Fluid Total Protein Vancomycin Trough Rheumatoid Factor Complement C4 Miscellaneous Test Crossmatch 12/23/16 12/23/16 12/24/16 12:35 17:01 00:01 WBC RBC Hgb Hct MCV MCH MCHC RDW Plt Count Lymph % (Auto) [place] % (Auto) Lymph # [place] # Baso # Seg Neutrophils % Seg Neuts % (Manual) Lymphocytes % (Manual) Monocytes % (Manual) Eosinophils % (Manual) Basophils % (Manual) Nucleated RBC % Seg Neutrophils # Seg Neutrophils # Man Lymphocytes # (Manual) Monocytes # (Manual) Eosinophils # (Manual) Basophils # (Manual) PT INR Fibrinogen dRVVT Confirm Interp Factor V Activity POC ABG pH POC ABG pCO2 POC ABG pO2 ABG pO2 ABG HCO3 ABG Base Excess ABG Hemoglobin Oxyhemoglobin Sodium Potassium Chloride Carbon Dioxide BUN Creatinine Glucose POC Glucose 164 H 149 H 135 H Lactic Acid Calcium Phosphorus Magnesium Direct Bilirubin AST ALT Alkaline Phosphatase Lactate Dehydrogenase Troponin T C-Reactive Protein Total Protein Albumin Prealbumin Triglycerides Cholesterol LDL Cholesterol Direct HDL Cholesterol PTH Intact Urine pH Urine WBC (Auto) Urine Creatinine Urine Total Protein Fluid Total Protein Vancomycin Trough Rheumatoid Factor Complement C4 Miscellaneous Test Crossmatch 12/24/16 12/24/16 12/24/16 05:41 07:01 11:38 WBC RBC Hgb Hct MCV MCH MCHC RDW Plt Count Lymph % (Auto) [place] % (Auto) Lymph # [place] # Baso # Seg Neutrophils % Seg Neuts % (Manual) Lymphocytes % (Manual) Monocytes % (Manual) Eosinophils % (Manual) Basophils % (Manual) Nucleated RBC % Seg Neutrophils # Seg Neutrophils # Man Lymphocytes # (Manual) Monocytes # (Manual) Eosinophils # (Manual) Basophils # (Manual) PT INR Fibrinogen dRVVT Confirm Interp Factor V Activity POC ABG pH POC ABG pCO2 POC ABG pO2 ABG pO2 ABG HCO3 ABG Base Excess ABG Hemoglobin Oxyhemoglobin Sodium Potassium Chloride Carbon Dioxide BUN 72 H Creatinine 1.3 H Glucose 130 H POC Glucose 132 H 156 H Lactic Acid Calcium 8.2 L Phosphorus Magnesium Direct Bilirubin AST ALT Alkaline Phosphatase Lactate Dehydrogenase Troponin T C-Reactive Protein Total Protein Albumin Prealbumin Triglycerides Cholesterol LDL Cholesterol Direct HDL Cholesterol PTH Intact Urine pH Urine WBC (Auto) Urine Creatinine Urine Total Protein Fluid Total Protein Vancomycin Trough Rheumatoid Factor Complement C4 Miscellaneous Test Crossmatch 12/24/16 12/25/16 12/25/16 17:53 00:23 05:45 WBC RBC Hgb Hct MCV MCH MCHC RDW Plt Count Lymph % (Auto) [place] % (Auto) Lymph # [place] # Baso # Seg Neutrophils % Seg Neuts % (Manual) Lymphocytes % (Manual) Monocytes % (Manual) Eosinophils % (Manual) Basophils % (Manual) Nucleated RBC % Seg Neutrophils # Seg Neutrophils # Man Lymphocytes # (Manual) Monocytes # (Manual) Eosinophils # (Manual) Basophils # (Manual) PT INR Fibrinogen dRVVT Confirm Interp Factor V Activity POC ABG pH POC ABG pCO2 POC ABG pO2 ABG pO2 ABG HCO3 ABG Base Excess ABG Hemoglobin Oxyhemoglobin Sodium 146 H Potassium Chloride Carbon Dioxide BUN 51 H Creatinine Glucose 109 H POC Glucose 169 H 117 H Lactic Acid Calcium Phosphorus Magnesium Direct Bilirubin AST ALT Alkaline Phosphatase Lactate Dehydrogenase Troponin T C-Reactive Protein Total Protein Albumin Prealbumin Triglycerides Cholesterol LDL Cholesterol Direct HDL Cholesterol PTH Intact Urine pH Urine WBC (Auto) Urine Creatinine Urine Total Protein Fluid Total Protein Vancomycin Trough Rheumatoid Factor Complement C4 Miscellaneous Test Crossmatch 12/25/16 12/25/16 12/25/16 06:43 11:29 17:14 WBC RBC Hgb Hct MCV MCH MCHC RDW Plt Count Lymph % (Auto) [place] % (Auto) Lymph # [place] # Baso # Seg Neutrophils % Seg Neuts % (Manual) Lymphocytes % (Manual) Monocytes % (Manual) Eosinophils % (Manual) Basophils % (Manual) Nucleated RBC % Seg Neutrophils # Seg Neutrophils # Man Lymphocytes # (Manual) Monocytes # (Manual) Eosinophils # (Manual) Basophils # (Manual) PT INR Fibrinogen dRVVT Confirm Interp Factor V Activity POC ABG pH POC ABG pCO2 POC ABG pO2 ABG pO2 ABG HCO3 ABG Base Excess ABG Hemoglobin Oxyhemoglobin Sodium Potassium Chloride Carbon Dioxide BUN Creatinine Glucose POC Glucose 117 H 128 H 120 H Lactic Acid Calcium Phosphorus Magnesium Direct Bilirubin AST ALT Alkaline Phosphatase Lactate Dehydrogenase Troponin T C-Reactive Protein Total Protein Albumin Prealbumin Triglycerides Cholesterol LDL Cholesterol Direct HDL Cholesterol PTH Intact Urine pH Urine WBC (Auto) Urine Creatinine Urine Total Protein Fluid Total Protein Vancomycin Trough Rheumatoid Factor Complement C4 Miscellaneous Test Crossmatch 12/25/16 12/26/16 12/26/16 23:54 05:40 05:50 WBC 16.2 H RBC 2.32 L Hgb 6.2 L Hct 20.1 L MCV MCH 27 L MCHC RDW 18.6 H Plt Count Lymph % (Auto) [place] % (Auto) Lymph # [place] # Baso # Seg Neutrophils % Seg Neuts % (Manual) Lymphocytes % (Manual) Monocytes % (Manual) Eosinophils % (Manual) Basophils % (Manual) Nucleated RBC % Seg Neutrophils # Seg Neutrophils # Man Lymphocytes # (Manual) Monocytes # (Manual) Eosinophils # (Manual) Basophils # (Manual) PT INR Fibrinogen dRVVT Confirm Interp Factor V Activity POC ABG pH POC ABG pCO2 POC ABG pO2 ABG pO2 ABG HCO3 ABG Base Excess ABG Hemoglobin Oxyhemoglobin Sodium Potassium Chloride Carbon Dioxide BUN Creatinine Glucose POC Glucose 126 H 132 H Lactic Acid Calcium Phosphorus Magnesium Direct Bilirubin AST ALT Alkaline Phosphatase Lactate Dehydrogenase Troponin T C-Reactive Protein Total Protein Albumin Prealbumin Triglycerides Cholesterol LDL Cholesterol Direct HDL Cholesterol PTH Intact Urine pH Urine WBC (Auto) Urine Creatinine Urine Total Protein Fluid Total Protein Vancomycin Trough Rheumatoid Factor Complement C4 Miscellaneous Test Crossmatch 12/26/16 12/26/16 12/26/16 05:50 12:17 12:33 WBC RBC Hgb Hct MCV MCH MCHC RDW Plt Count Lymph % (Auto) [place] % (Auto) Lymph # [place] # Baso # Seg Neutrophils % Seg Neuts % (Manual) Lymphocytes % (Manual) Monocytes % (Manual) Eosinophils % (Manual) Basophils % (Manual) Nucleated RBC % Seg Neutrophils # Seg Neutrophils # Man Lymphocytes # (Manual) Monocytes # (Manual) Eosinophils # (Manual) Basophils # (Manual) PT INR Fibrinogen dRVVT Confirm Interp Factor V Activity POC ABG pH POC ABG pCO2 POC ABG pO2 ABG pO2 ABG HCO3 ABG Base Excess ABG Hemoglobin Oxyhemoglobin Sodium Potassium Chloride Carbon Dioxide BUN 73 H Creatinine 1.3 H Glucose 113 H POC Glucose 117 H Lactic Acid Calcium Phosphorus Magnesium Direct Bilirubin AST ALT Alkaline Phosphatase Lactate Dehydrogenase Troponin T C-Reactive Protein Total Protein Albumin Prealbumin Triglycerides Cholesterol LDL Cholesterol Direct HDL Cholesterol PTH Intact Urine pH Urine WBC (Auto) Urine Creatinine Urine Total Protein Fluid Total Protein Vancomycin Trough Rheumatoid Factor Complement C4 Miscellaneous Test Crossmatch See Detail 12/26/16 12/26/16 12/27/16 20:00 23:21 05:00 WBC RBC Hgb 8.4 L Hct 26.3 L D MCV MCH MCHC RDW Plt Count Lymph % (Auto) [place] % (Auto) Lymph # [place] # Baso # Seg Neutrophils % Seg Neuts % (Manual) Lymphocytes % (Manual) Monocytes % (Manual) Eosinophils % (Manual) Basophils % (Manual) Nucleated RBC % Seg Neutrophils # Seg Neutrophils # Man Lymphocytes # (Manual) Monocytes # (Manual) Eosinophils # (Manual) Basophils # (Manual) PT INR Fibrinogen dRVVT Confirm Interp Factor V Activity POC ABG pH POC ABG pCO2 POC ABG pO2 ABG pO2 ABG HCO3 ABG Base Excess ABG Hemoglobin Oxyhemoglobin Sodium Potassium Chloride Carbon Dioxide BUN 85 H Creatinine 1.6 H Glucose 118 H POC Glucose 124 H Lactic Acid Calcium Phosphorus 4.80 H Magnesium Direct Bilirubin AST ALT Alkaline Phosphatase Lactate Dehydrogenase Troponin T C-Reactive Protein Total Protein Albumin Prealbumin Triglycerides Cholesterol LDL Cholesterol Direct HDL Cholesterol PTH Intact Urine pH Urine WBC (Auto) Urine Creatinine Urine Total Protein Fluid Total Protein Vancomycin Trough Rheumatoid Factor Complement C4 Miscellaneous Test Crossmatch 12/27/16 12/27/16 12/27/16 05:00 05:35 12:24 WBC RBC Hgb 7.6 L Hct 22.8 L MCV MCH MCHC RDW Plt Count Lymph % (Auto) [place] % (Auto) Lymph # [place] # Baso # Seg Neutrophils % Seg Neuts % (Manual) Lymphocytes % (Manual) Monocytes % (Manual) Eosinophils % (Manual) Basophils % (Manual) Nucleated RBC % Seg Neutrophils # Seg Neutrophils # Man Lymphocytes # (Manual) Monocytes # (Manual) Eosinophils # (Manual) Basophils # (Manual) PT INR Fibrinogen dRVVT Confirm Interp Factor V Activity POC ABG pH POC ABG pCO2 POC ABG pO2 ABG pO2 ABG HCO3 ABG Base Excess ABG Hemoglobin Oxyhemoglobin Sodium Potassium Chloride Carbon Dioxide BUN Creatinine Glucose POC Glucose 115 H 131 H Lactic Acid Calcium Phosphorus Magnesium Direct Bilirubin AST ALT Alkaline Phosphatase Lactate Dehydrogenase Troponin T C-Reactive Protein Total Protein Albumin Prealbumin Triglycerides Cholesterol LDL Cholesterol Direct HDL Cholesterol PTH Intact Urine pH Urine WBC (Auto) Urine Creatinine Urine Total Protein Fluid Total Protein Vancomycin Trough Rheumatoid Factor Complement C4 Miscellaneous Test Crossmatch 12/27/16 12/28/16 12/28/16 17:16 00:18 04:00 WBC RBC Hgb Hct MCV MCH MCHC RDW Plt Count Lymph % (Auto) [place] % (Auto) Lymph # [place] # Baso # Seg Neutrophils % Seg Neuts % (Manual) Lymphocytes % (Manual) Monocytes % (Manual) Eosinophils % (Manual) Basophils % (Manual) Nucleated RBC % Seg Neutrophils # Seg Neutrophils # Man Lymphocytes # (Manual) Monocytes # (Manual) Eosinophils # (Manual) Basophils # (Manual) PT INR Fibrinogen dRVVT Confirm Interp Factor V Activity POC ABG pH POC ABG pCO2 POC ABG pO2 ABG pO2 ABG HCO3 ABG Base Excess ABG Hemoglobin Oxyhemoglobin Sodium Potassium 3.5 L Chloride Carbon Dioxide BUN 57 H Creatinine Glucose 118 H POC Glucose 136 H 120 H Lactic Acid Calcium 8.3 L Phosphorus Magnesium Direct Bilirubin AST ALT Alkaline Phosphatase Lactate Dehydrogenase Troponin T C-Reactive Protein Total Protein Albumin Prealbumin Triglycerides Cholesterol LDL Cholesterol Direct HDL Cholesterol PTH Intact Urine pH Urine WBC (Auto) Urine Creatinine Urine Total Protein Fluid Total Protein Vancomycin Trough Rheumatoid Factor Complement C4 Miscellaneous Test Crossmatch 12/28/16 12/28/16 12/28/16 04:00 05:11 08:30 WBC 17.0 H RBC 2.58 L Hgb 7.1 L Hct 22.0 L MCV MCH MCHC RDW 17.6 H Plt Count Lymph % (Auto) 12.2 L [place] % (Auto) Lymph # [place] # 1.1 H Baso # Seg Neutrophils % 80.5 H Seg Neuts % (Manual) Lymphocytes % (Manual) Monocytes % (Manual) Eosinophils % (Manual) Basophils % (Manual) Nucleated RBC % Seg Neutrophils # 13.7 H Seg Neutrophils # Man Lymphocytes # (Manual) Monocytes # (Manual) Eosinophils # (Manual) Basophils # (Manual) PT 16.1 H INR 1.23 H Fibrinogen dRVVT Confirm Interp Factor V Activity POC ABG pH POC ABG pCO2 POC ABG pO2 ABG pO2 ABG HCO3 ABG Base Excess ABG Hemoglobin Oxyhemoglobin Sodium Potassium Chloride Carbon Dioxide BUN Creatinine Glucose POC Glucose 122 H Lactic Acid Calcium Phosphorus Magnesium Direct Bilirubin AST ALT Alkaline Phosphatase Lactate Dehydrogenase Troponin T C-Reactive Protein Total Protein Albumin Prealbumin Triglycerides Cholesterol LDL Cholesterol Direct HDL Cholesterol PTH Intact Urine pH Urine WBC (Auto) Urine Creatinine Urine Total Protein Fluid Total Protein Vancomycin Trough Rheumatoid Factor Complement C4 Miscellaneous Test Crossmatch 12/28/16 12/28/16 12/28/16 12:27 16:32 23:46 WBC RBC Hgb Hct MCV MCH MCHC RDW Plt Count Lymph % (Auto) [place] % (Auto) Lymph # [place] # Baso # Seg Neutrophils % Seg Neuts % (Manual) Lymphocytes % (Manual) Monocytes % (Manual) Eosinophils % (Manual) Basophils % (Manual) Nucleated RBC % Seg Neutrophils # Seg Neutrophils # Man Lymphocytes # (Manual) Monocytes # (Manual) Eosinophils # (Manual) Basophils # (Manual) PT INR Fibrinogen dRVVT Confirm Interp Factor V Activity POC ABG pH POC ABG pCO2 POC ABG pO2 ABG pO2 ABG HCO3 ABG Base Excess ABG Hemoglobin Oxyhemoglobin Sodium Potassium Chloride Carbon Dioxide BUN Creatinine Glucose POC Glucose 127 H 117 H 108 H Lactic Acid Calcium Phosphorus Magnesium Direct Bilirubin AST ALT Alkaline Phosphatase Lactate Dehydrogenase Troponin T C-Reactive Protein Total Protein Albumin Prealbumin Triglycerides Cholesterol LDL Cholesterol Direct HDL Cholesterol PTH Intact Urine pH Urine WBC (Auto) Urine Creatinine Urine Total Protein Fluid Total Protein Vancomycin Trough Rheumatoid Factor Complement C4 Miscellaneous Test Crossmatch 12/29/16 12/29/16 12/29/16 05:15 05:15 05:32 WBC RBC Hgb Hct MCV MCH MCHC RDW Plt Count Lymph % (Auto) [place] % (Auto) Lymph # [place] # Baso # Seg Neutrophils % Seg Neuts % (Manual) Lymphocytes % (Manual) Monocytes % (Manual) Eosinophils % (Manual) Basophils % (Manual) Nucleated RBC % Seg Neutrophils # Seg Neutrophils # Man Lymphocytes # (Manual) Monocytes # (Manual) Eosinophils # (Manual) Basophils # (Manual) PT INR Fibrinogen dRVVT Confirm Interp Factor V Activity POC ABG pH POC ABG pCO2 POC ABG pO2 ABG pO2 ABG HCO3 ABG Base Excess ABG Hemoglobin Oxyhemoglobin Sodium Potassium Chloride Carbon Dioxide BUN 74 H Creatinine 1.6 H Glucose 111 H POC Glucose 123 H Lactic Acid Calcium Phosphorus Magnesium Direct Bilirubin AST ALT Alkaline Phosphatase Lactate Dehydrogenase Troponin T C-Reactive Protein Total Protein Albumin Prealbumin 0.110 L Triglycerides Cholesterol LDL Cholesterol Direct HDL Cholesterol PTH Intact Urine pH Urine WBC (Auto) Urine Creatinine Urine Total Protein Fluid Total Protein Vancomycin Trough Rheumatoid Factor Complement C4 Miscellaneous Test Crossmatch 12/29/16 12/29/16 12/29/16 11:43 13:45 14:00 WBC 13.8 H RBC 2.26 L Hgb 6.3 L Hct 20.4 L MCV MCH MCHC RDW 18.3 H Plt Count Lymph % (Auto) [place] % (Auto) Lymph # [place] # 0.9 H Baso # Seg Neutrophils % 78.6 H Seg Neuts % (Manual) Lymphocytes % (Manual) Monocytes % (Manual) Eosinophils % (Manual) Basophils % (Manual) Nucleated RBC % Seg Neutrophils # 10.8 H Seg Neutrophils # Man Lymphocytes # (Manual) Monocytes # (Manual) Eosinophils # (Manual) Basophils # (Manual) PT INR Fibrinogen dRVVT Confirm Interp Factor V Activity POC ABG pH POC ABG pCO2 POC ABG pO2 ABG pO2 ABG HCO3 ABG Base Excess ABG Hemoglobin Oxyhemoglobin Sodium Potassium Chloride Carbon Dioxide BUN Creatinine Glucose POC Glucose 133 H Lactic Acid Calcium Phosphorus Magnesium Direct Bilirubin AST ALT Alkaline Phosphatase Lactate Dehydrogenase Troponin T C-Reactive Protein Total Protein Albumin Prealbumin Triglycerides Cholesterol LDL Cholesterol Direct HDL Cholesterol PTH Intact Urine pH Urine WBC (Auto) Urine Creatinine Urine Total Protein Fluid Total Protein Vancomycin Trough Rheumatoid Factor Complement C4 Miscellaneous Test Crossmatch See Detail 12/29/16 12/29/16 12/29/16 17:03 23:15 23:22 WBC RBC Hgb 7.3 L Hct 22.3 L MCV MCH MCHC RDW Plt Count Lymph % (Auto) [place] % (Auto) Lymph # [place] # Baso # Seg Neutrophils % Seg Neuts % (Manual) Lymphocytes % (Manual) Monocytes % (Manual) Eosinophils % (Manual) Basophils % (Manual) Nucleated RBC % Seg Neutrophils # Seg Neutrophils # Man Lymphocytes # (Manual) Monocytes # (Manual) Eosinophils # (Manual) Basophils # (Manual) PT INR Fibrinogen dRVVT Confirm Interp Factor V Activity POC ABG pH POC ABG pCO2 POC ABG pO2 ABG pO2 ABG HCO3 ABG Base Excess ABG Hemoglobin Oxyhemoglobin Sodium Potassium Chloride Carbon Dioxide BUN Creatinine Glucose POC Glucose 139 H 120 H Lactic Acid Calcium Phosphorus Magnesium Direct Bilirubin AST ALT Alkaline Phosphatase Lactate Dehydrogenase Troponin T C-Reactive Protein Total Protein Albumin Prealbumin Triglycerides Cholesterol LDL Cholesterol Direct HDL Cholesterol PTH Intact Urine pH Urine WBC (Auto) Urine Creatinine Urine Total Protein Fluid Total Protein Vancomycin Trough Rheumatoid Factor Complement C4 Miscellaneous Test Crossmatch 12/30/16 12/30/16 12/30/16 04:20 04:20 05:43 WBC 15.6 H RBC 2.81 L Hgb 8.0 L Hct 24.0 L MCV MCH MCHC RDW 16.9 H Plt Count Lymph % (Auto) [place] % (Auto) Lymph # [place] # 1.0 H Baso # Seg Neutrophils % 76.2 H Seg Neuts % (Manual) Lymphocytes % (Manual) Monocytes % (Manual) Eosinophils % (Manual) Basophils % (Manual) Nucleated RBC % Seg Neutrophils # 11.9 H Seg Neutrophils # Man Lymphocytes # (Manual) Monocytes # (Manual) Eosinophils # (Manual) Basophils # (Manual) PT INR Fibrinogen dRVVT Confirm Interp Factor V Activity POC ABG pH POC ABG pCO2 POC ABG pO2 ABG pO2 ABG HCO3 ABG Base Excess ABG Hemoglobin Oxyhemoglobin Sodium Potassium Chloride Carbon Dioxide BUN 87 H Creatinine 1.8 H Glucose 119 H POC Glucose 115 H Lactic Acid Calcium Phosphorus Magnesium Direct Bilirubin AST ALT Alkaline Phosphatase Lactate Dehydrogenase Troponin T C-Reactive Protein Total Protein Albumin Prealbumin Triglycerides Cholesterol LDL Cholesterol Direct HDL Cholesterol PTH Intact Urine pH Urine WBC (Auto) Urine Creatinine Urine Total Protein Fluid Total Protein Vancomycin Trough Rheumatoid Factor Complement C4 Miscellaneous Test Crossmatch 12/30/16 12/30/16 12/31/16 17:27 23:21 04:00 WBC RBC Hgb Hct MCV MCH MCHC RDW Plt Count Lymph % (Auto) [place] % (Auto) Lymph # [place] # Baso # Seg Neutrophils % Seg Neuts % (Manual) Lymphocytes % (Manual) Monocytes % (Manual) Eosinophils % (Manual) Basophils % (Manual) Nucleated RBC % Seg Neutrophils # Seg Neutrophils # Man Lymphocytes # (Manual) Monocytes # (Manual) Eosinophils # (Manual) Basophils # (Manual) PT INR Fibrinogen dRVVT Confirm Interp Factor V Activity POC ABG pH POC ABG pCO2 POC ABG pO2 ABG pO2 ABG HCO3 ABG Base Excess ABG Hemoglobin Oxyhemoglobin Sodium Potassium Chloride Carbon Dioxide BUN 59 H Creatinine Glucose 298 H POC Glucose 144 H 125 H Lactic Acid Calcium Phosphorus Magnesium Direct Bilirubin AST ALT Alkaline Phosphatase Lactate Dehydrogenase Troponin T C-Reactive Protein Total Protein Albumin Prealbumin Triglycerides Cholesterol LDL Cholesterol Direct HDL Cholesterol PTH Intact Urine pH Urine WBC (Auto) Urine Creatinine Urine Total Protein Fluid Total Protein Vancomycin Trough Rheumatoid Factor Complement C4 Miscellaneous Test Crossmatch 12/31/16 12/31/16 12/31/16 05:11 12:18 18:17 WBC RBC Hgb Hct MCV MCH MCHC RDW Plt Count Lymph % (Auto) [place] % (Auto) Lymph # [place] # Baso # Seg Neutrophils % Seg Neuts % (Manual) Lymphocytes % (Manual) Monocytes % (Manual) Eosinophils % (Manual) Basophils % (Manual) Nucleated RBC % Seg Neutrophils # Seg Neutrophils # Man Lymphocytes # (Manual) Monocytes # (Manual) Eosinophils # (Manual) Basophils # (Manual) PT INR Fibrinogen dRVVT Confirm Interp Factor V Activity POC ABG pH POC ABG pCO2 POC ABG pO2 ABG pO2 ABG HCO3 ABG Base Excess ABG Hemoglobin Oxyhemoglobin Sodium Potassium Chloride Carbon Dioxide BUN Creatinine Glucose POC Glucose 167 H 125 H 133 H Lactic Acid Calcium Phosphorus Magnesium Direct Bilirubin AST ALT Alkaline Phosphatase Lactate Dehydrogenase Troponin T C-Reactive Protein Total Protein Albumin Prealbumin Triglycerides Cholesterol LDL Cholesterol Direct HDL Cholesterol PTH Intact Urine pH Urine WBC (Auto) Urine Creatinine Urine Total Protein Fluid Total Protein Vancomycin Trough Rheumatoid Factor Complement C4 Miscellaneous Test Crossmatch 12/31/16 01/01/17 01/01/17 23:55 05:00 05:12 WBC RBC Hgb Hct MCV MCH MCHC RDW Plt Count Lymph % (Auto) [place] % (Auto) Lymph # [place] # Baso # Seg Neutrophils % Seg Neuts % (Manual) Lymphocytes % (Manual) Monocytes % (Manual) Eosinophils % (Manual) Basophils % (Manual) Nucleated RBC % Seg Neutrophils # Seg Neutrophils # Man Lymphocytes # (Manual) Monocytes # (Manual) Eosinophils # (Manual) Basophils # (Manual) PT INR Fibrinogen dRVVT Confirm Interp Factor V Activity POC ABG pH POC ABG pCO2 POC ABG pO2 ABG pO2 ABG HCO3 ABG Base Excess ABG Hemoglobin Oxyhemoglobin Sodium Potassium Chloride Carbon Dioxide BUN 76 H Creatinine 1.5 H Glucose 109 H POC Glucose 129 H 129 H Lactic Acid Calcium Phosphorus Magnesium Direct Bilirubin AST ALT Alkaline Phosphatase 536 H Lactate Dehydrogenase Troponin T C-Reactive Protein Total Protein Albumin 1.5 L Prealbumin Triglycerides Cholesterol LDL Cholesterol Direct HDL Cholesterol PTH Intact Urine pH Urine WBC (Auto) Urine Creatinine Urine Total Protein Fluid Total Protein Vancomycin Trough Rheumatoid Factor Complement C4 Miscellaneous Test Crossmatch 01/01/17 01/01/17 01/01/17 12:25 17:01 23:32 WBC RBC Hgb Hct MCV MCH MCHC RDW Plt Count Lymph % (Auto) [place] % (Auto) Lymph # [place] # Baso # Seg Neutrophils % Seg Neuts % (Manual) Lymphocytes % (Manual) Monocytes % (Manual) Eosinophils % (Manual) Basophils % (Manual) Nucleated RBC % Seg Neutrophils # Seg Neutrophils # Man Lymphocytes # (Manual) Monocytes # (Manual) Eosinophils # (Manual) Basophils # (Manual) PT INR Fibrinogen dRVVT Confirm Interp Factor V Activity POC ABG pH POC ABG pCO2 POC ABG pO2 ABG pO2 ABG HCO3 ABG Base Excess ABG Hemoglobin Oxyhemoglobin Sodium Potassium Chloride Carbon Dioxide BUN Creatinine Glucose POC Glucose 140 H 142 H 112 H Lactic Acid Calcium Phosphorus Magnesium Direct Bilirubin AST ALT Alkaline Phosphatase Lactate Dehydrogenase Troponin T C-Reactive Protein Total Protein Albumin Prealbumin Triglycerides Cholesterol LDL Cholesterol Direct HDL Cholesterol PTH Intact Urine pH Urine WBC (Auto) Urine Creatinine Urine Total Protein Fluid Total Protein Vancomycin Trough Rheumatoid Factor Complement C4 Miscellaneous Test Crossmatch 01/02/17 01/02/17 01/02/17 04:56 06:00 11:37 WBC RBC Hgb Hct MCV MCH MCHC RDW Plt Count Lymph % (Auto) [place] % (Auto) Lymph # [place] # Baso # Seg Neutrophils % Seg Neuts % (Manual) Lymphocytes % (Manual) Monocytes % (Manual) Eosinophils % (Manual) Basophils % (Manual) Nucleated RBC % Seg Neutrophils # Seg Neutrophils # Man Lymphocytes # (Manual) Monocytes # (Manual) Eosinophils # (Manual) Basophils # (Manual) PT INR Fibrinogen dRVVT Confirm Interp Factor V Activity POC ABG pH POC ABG pCO2 POC ABG pO2 ABG pO2 ABG HCO3 ABG Base Excess ABG Hemoglobin Oxyhemoglobin Sodium Potassium Chloride Carbon Dioxide BUN 88 H Creatinine 1.7 H Glucose 113 H POC Glucose 136 H 200 H Lactic Acid Calcium Phosphorus Magnesium Direct Bilirubin AST ALT Alkaline Phosphatase Lactate Dehydrogenase Troponin T C-Reactive Protein Total Protein Albumin Prealbumin Triglycerides Cholesterol LDL Cholesterol Direct HDL Cholesterol PTH Intact Urine pH Urine WBC (Auto) Urine Creatinine Urine Total Protein Fluid Total Protein Vancomycin Trough Rheumatoid Factor Complement C4 Miscellaneous Test Crossmatch 01/02/17 01/02/17 01/03/17 17:42 22:52 04:54 WBC RBC Hgb Hct MCV MCH MCHC RDW Plt Count Lymph % (Auto) [place] % (Auto) Lymph # [place] # Baso # Seg Neutrophils % Seg Neuts % (Manual) Lymphocytes % (Manual) Monocytes % (Manual) Eosinophils % (Manual) Basophils % (Manual) Nucleated RBC % Seg Neutrophils # Seg Neutrophils # Man Lymphocytes # (Manual) Monocytes # (Manual) Eosinophils # (Manual) Basophils # (Manual) PT INR Fibrinogen dRVVT Confirm Interp Factor V Activity POC ABG pH POC ABG pCO2 POC ABG pO2 ABG pO2 ABG HCO3 ABG Base Excess ABG Hemoglobin Oxyhemoglobin Sodium Potassium Chloride Carbon Dioxide BUN Creatinine Glucose POC Glucose 112 H 133 H 111 H Lactic Acid Calcium Phosphorus Magnesium Direct Bilirubin AST ALT Alkaline Phosphatase Lactate Dehydrogenase Troponin T C-Reactive Protein Total Protein Albumin Prealbumin Triglycerides Cholesterol LDL Cholesterol Direct HDL Cholesterol PTH Intact Urine pH Urine WBC (Auto) Urine Creatinine Urine Total Protein Fluid Total Protein Vancomycin Trough Rheumatoid Factor Complement C4 Miscellaneous Test Crossmatch 01/03/17 01/03/17 01/03/17 05:00 05:00 14:02 WBC 11.2 H RBC 2.56 L Hgb 7.2 L Hct 22.3 L MCV MCH MCHC RDW 17.3 H Plt Count Lymph % (Auto) [place] % (Auto) 10.0 H Lymph # [place] # 1.1 H Baso # Seg Neutrophils % 70.5 H Seg Neuts % (Manual) Lymphocytes % (Manual) Monocytes % (Manual) Eosinophils % (Manual) Basophils % (Manual) Nucleated RBC % Seg Neutrophils # 7.9 H Seg Neutrophils # Man Lymphocytes # (Manual) Monocytes # (Manual) Eosinophils # (Manual) Basophils # (Manual) PT INR Fibrinogen dRVVT Confirm Interp Factor V Activity POC ABG pH POC ABG pCO2 POC ABG pO2 ABG pO2 ABG HCO3 ABG Base Excess ABG Hemoglobin Oxyhemoglobin Sodium Potassium Chloride Carbon Dioxide BUN 60 H Creatinine 1.3 H Glucose 110 H POC Glucose 119 H Lactic Acid Calcium Phosphorus Magnesium Direct Bilirubin AST ALT Alkaline Phosphatase Lactate Dehydrogenase Troponin T C-Reactive Protein Total Protein Albumin Prealbumin Triglycerides Cholesterol LDL Cholesterol Direct HDL Cholesterol PTH Intact Urine pH Urine WBC (Auto) Urine Creatinine Urine Total Protein Fluid Total Protein Vancomycin Trough Rheumatoid Factor Complement C4 Miscellaneous Test Crossmatch 01/03/17 01/03/17 01/04/17 18:13 23:40 05:57 WBC RBC Hgb Hct MCV MCH MCHC RDW Plt Count Lymph % (Auto) [place] % (Auto) Lymph # [place] # Baso # Seg Neutrophils % Seg Neuts % (Manual) Lymphocytes % (Manual) Monocytes % (Manual) Eosinophils % (Manual) Basophils % (Manual) Nucleated RBC % Seg Neutrophils # Seg Neutrophils # Man Lymphocytes # (Manual) Monocytes # (Manual) Eosinophils # (Manual) Basophils # (Manual) PT INR Fibrinogen dRVVT Confirm Interp Factor V Activity POC ABG pH POC ABG pCO2 POC ABG pO2 ABG pO2 ABG HCO3 ABG Base Excess ABG Hemoglobin Oxyhemoglobin Sodium Potassium Chloride Carbon Dioxide BUN Creatinine Glucose POC Glucose 107 H 129 H 111 H Lactic Acid Calcium Phosphorus Magnesium Direct Bilirubin AST ALT Alkaline Phosphatase Lactate Dehydrogenase Troponin T C-Reactive Protein Total Protein Albumin Prealbumin Triglycerides Cholesterol LDL Cholesterol Direct HDL Cholesterol PTH Intact Urine pH Urine WBC (Auto) Urine Creatinine Urine Total Protein Fluid Total Protein Vancomycin Trough Rheumatoid Factor Complement C4 Miscellaneous Test Crossmatch 01/04/17 01/04/17 01/04/17 12:46 15:27 17:11 WBC RBC Hgb Hct MCV MCH MCHC RDW Plt Count Lymph % (Auto) [place] % (Auto) Lymph # [place] # Baso # Seg Neutrophils % Seg Neuts % (Manual) Lymphocytes % (Manual) Monocytes % (Manual) Eosinophils % (Manual) Basophils % (Manual) Nucleated RBC % Seg Neutrophils # Seg Neutrophils # Man Lymphocytes # (Manual) Monocytes # (Manual) Eosinophils # (Manual) Basophils # (Manual) PT INR Fibrinogen dRVVT Confirm Interp Factor V Activity POC ABG pH POC ABG pCO2 POC ABG pO2 ABG pO2 ABG HCO3 ABG Base Excess ABG Hemoglobin Oxyhemoglobin Sodium Potassium Chloride Carbon Dioxide BUN 43 H Creatinine Glucose 124 H POC Glucose 159 H 125 H Lactic Acid Calcium 8.0 L Phosphorus 2.10 L Magnesium Direct Bilirubin AST ALT Alkaline Phosphatase Lactate Dehydrogenase Troponin T C-Reactive Protein Total Protein Albumin Prealbumin Triglycerides Cholesterol LDL Cholesterol Direct HDL Cholesterol PTH Intact Urine pH Urine WBC (Auto) Urine Creatinine Urine Total Protein Fluid Total Protein Vancomycin Trough Rheumatoid Factor Complement C4 Miscellaneous Test Crossmatch 01/04/17 01/05/17 01/05/17 23:31 04:00 05:46 WBC RBC Hgb Hct MCV MCH MCHC RDW Plt Count Lymph % (Auto) [place] % (Auto) Lymph # [place] # Baso # Seg Neutrophils % Seg Neuts % (Manual) Lymphocytes % (Manual) Monocytes % (Manual) Eosinophils % (Manual) Basophils % (Manual) Nucleated RBC % Seg Neutrophils # Seg Neutrophils # Man Lymphocytes # (Manual) Monocytes # (Manual) Eosinophils # (Manual) Basophils # (Manual) PT INR Fibrinogen dRVVT Confirm Interp Factor V Activity POC ABG pH POC ABG pCO2 POC ABG pO2 ABG pO2 ABG HCO3 ABG Base Excess ABG Hemoglobin Oxyhemoglobin Sodium Potassium Chloride Carbon Dioxide BUN 52 H Creatinine 1.3 H Glucose 113 H POC Glucose 123 H 118 H Lactic Acid Calcium Phosphorus 2.40 L Magnesium Direct Bilirubin AST ALT Alkaline Phosphatase Lactate Dehydrogenase Troponin T C-Reactive Protein Total Protein Albumin Prealbumin Triglycerides Cholesterol LDL Cholesterol Direct HDL Cholesterol PTH Intact Urine pH Urine WBC (Auto) Urine Creatinine Urine Total Protein Fluid Total Protein Vancomycin Trough Rheumatoid Factor Complement C4 Miscellaneous Test Crossmatch 01/05/17 01/05/17 01/05/17 11:41 17:48 23:27 WBC RBC Hgb Hct MCV MCH MCHC RDW Plt Count Lymph % (Auto) [place] % (Auto) Lymph # [place] # Baso # Seg Neutrophils % Seg Neuts % (Manual) Lymphocytes % (Manual) Monocytes % (Manual) Eosinophils % (Manual) Basophils % (Manual) Nucleated RBC % Seg Neutrophils # Seg Neutrophils # Man Lymphocytes # (Manual) Monocytes # (Manual) Eosinophils # (Manual) Basophils # (Manual) PT INR Fibrinogen dRVVT Confirm Interp Factor V Activity POC ABG pH POC ABG pCO2 POC ABG pO2 ABG pO2 ABG HCO3 ABG Base Excess ABG Hemoglobin Oxyhemoglobin Sodium Potassium Chloride Carbon Dioxide BUN Creatinine Glucose POC Glucose 163 H 142 H 155 H Lactic Acid Calcium Phosphorus Magnesium Direct Bilirubin AST ALT Alkaline Phosphatase Lactate Dehydrogenase Troponin T C-Reactive Protein Total Protein Albumin Prealbumin Triglycerides Cholesterol LDL Cholesterol Direct HDL Cholesterol PTH Intact Urine pH Urine WBC (Auto) Urine Creatinine Urine Total Protein Fluid Total Protein Vancomycin Trough Rheumatoid Factor Complement C4 Miscellaneous Test Crossmatch 01/06/17 01/06/17 01/06/17 05:20 07:35 11:18 WBC RBC Hgb Hct MCV MCH MCHC RDW Plt Count Lymph % (Auto) [place] % (Auto) Lymph # [place] # Baso # Seg Neutrophils % Seg Neuts % (Manual) Lymphocytes % (Manual) Monocytes % (Manual) Eosinophils % (Manual) Basophils % (Manual) Nucleated RBC % Seg Neutrophils # Seg Neutrophils # Man Lymphocytes # (Manual) Monocytes # (Manual) Eosinophils # (Manual) Basophils # (Manual) PT INR Fibrinogen dRVVT Confirm Interp Factor V Activity POC ABG pH POC ABG pCO2 POC ABG pO2 ABG pO2 ABG HCO3 ABG Base Excess ABG Hemoglobin Oxyhemoglobin Sodium Potassium Chloride Carbon Dioxide BUN 74 H Creatinine 1.6 H Glucose 135 H POC Glucose 108 H 149 H Lactic Acid Calcium Phosphorus Magnesium Direct Bilirubin AST ALT Alkaline Phosphatase Lactate Dehydrogenase Troponin T C-Reactive Protein Total Protein Albumin Prealbumin Triglycerides Cholesterol LDL Cholesterol Direct HDL Cholesterol PTH Intact Urine pH Urine WBC (Auto) Urine Creatinine Urine Total Protein Fluid Total Protein Vancomycin Trough Rheumatoid Factor Complement C4 Miscellaneous Test Crossmatch 01/06/17 01/07/17 01/07/17 17:17 00:23 05:31 WBC RBC Hgb Hct MCV MCH MCHC RDW Plt Count Lymph % (Auto) [place] % (Auto) Lymph # [place] # Baso # Seg Neutrophils % Seg Neuts % (Manual) Lymphocytes % (Manual) Monocytes % (Manual) Eosinophils % (Manual) Basophils % (Manual) Nucleated RBC % Seg Neutrophils # Seg Neutrophils # Man Lymphocytes # (Manual) Monocytes # (Manual) Eosinophils # (Manual) Basophils # (Manual) PT INR Fibrinogen dRVVT Confirm Interp Factor V Activity POC ABG pH POC ABG pCO2 POC ABG pO2 ABG pO2 ABG HCO3 ABG Base Excess ABG Hemoglobin Oxyhemoglobin Sodium Potassium Chloride Carbon Dioxide BUN Creatinine Glucose POC Glucose 146 H 165 H 153 H Lactic Acid Calcium Phosphorus Magnesium Direct Bilirubin AST ALT Alkaline Phosphatase Lactate Dehydrogenase Troponin T C-Reactive Protein Total Protein Albumin Prealbumin Triglycerides Cholesterol LDL Cholesterol Direct HDL Cholesterol PTH Intact Urine pH Urine WBC (Auto) Urine Creatinine Urine Total Protein Fluid Total Protein Vancomycin Trough Rheumatoid Factor Complement C4 Miscellaneous Test Crossmatch 01/07/17 01/07/17 01/07/17 06:00 11:39 17:11 WBC RBC Hgb Hct MCV MCH MCHC RDW Plt Count Lymph % (Auto) [place] % (Auto) Lymph # [place] # Baso # Seg Neutrophils % Seg Neuts % (Manual) Lymphocytes % (Manual) Monocytes % (Manual) Eosinophils % (Manual) Basophils % (Manual) Nucleated RBC % Seg Neutrophils # Seg Neutrophils # Man Lymphocytes # (Manual) Monocytes # (Manual) Eosinophils # (Manual) Basophils # (Manual) PT INR Fibrinogen dRVVT Confirm Interp Factor V Activity POC ABG pH POC ABG pCO2 POC ABG pO2 ABG pO2 ABG HCO3 ABG Base Excess ABG Hemoglobin Oxyhemoglobin Sodium Potassium Chloride Carbon Dioxide BUN 42 H Creatinine Glucose 175 H POC Glucose 163 H 163 H Lactic Acid Calcium Phosphorus 2.40 L D Magnesium Direct Bilirubin AST ALT Alkaline Phosphatase Lactate Dehydrogenase Troponin T C-Reactive Protein Total Protein Albumin Prealbumin Triglycerides Cholesterol LDL Cholesterol Direct HDL Cholesterol PTH Intact Urine pH Urine WBC (Auto) Urine Creatinine Urine Total Protein Fluid Total Protein Vancomycin Trough Rheumatoid Factor Complement C4 Miscellaneous Test Crossmatch 01/07/17 01/08/17 01/08/17 23:40 05:00 05:00 WBC 27.4 H RBC 2.27 L Hgb 6.1 L Hct 20.4 L MCV MCH 27 L MCHC RDW 17.8 H Plt Count Lymph % (Auto) [place] % (Auto) Lymph # [place] # Baso # Seg Neutrophils % Seg Neuts % (Manual) Lymphocytes % (Manual) Monocytes % (Manual) Eosinophils % (Manual) Basophils % (Manual) Nucleated RBC % Seg Neutrophils # Seg Neutrophils # Man Lymphocytes # (Manual) Monocytes # (Manual) Eosinophils # (Manual) Basophils # (Manual) PT INR Fibrinogen dRVVT Confirm Interp Factor V Activity POC ABG pH POC ABG pCO2 POC ABG pO2 ABG pO2 ABG HCO3 ABG Base Excess ABG Hemoglobin Oxyhemoglobin Sodium Potassium Chloride Carbon Dioxide 16 L D BUN 62 H Creatinine 1.6 H D Glucose 103 H POC Glucose 135 H Lactic Acid Calcium Phosphorus Magnesium Direct Bilirubin AST ALT Alkaline Phosphatase Lactate Dehydrogenase Troponin T C-Reactive Protein Total Protein Albumin Prealbumin Triglycerides Cholesterol LDL Cholesterol Direct HDL Cholesterol PTH Intact Urine pH Urine WBC (Auto) Urine Creatinine Urine Total Protein Fluid Total Protein Vancomycin Trough Rheumatoid Factor Complement C4 Miscellaneous Test Crossmatch 01/08/17 01/08/17 01/08/17 05:25 10:37 10:37 WBC RBC Hgb Hct MCV MCH MCHC RDW Plt Count Lymph % (Auto) [place] % (Auto) Lymph # [place] # Baso # Seg Neutrophils % Seg Neuts % (Manual) Lymphocytes % (Manual) Monocytes % (Manual) Eosinophils % (Manual) Basophils % (Manual) Nucleated RBC % Seg Neutrophils # Seg Neutrophils # Man Lymphocytes # (Manual) Monocytes # (Manual) Eosinophils # (Manual) Basophils # (Manual) PT INR Fibrinogen dRVVT Confirm Interp Factor V Activity POC ABG pH POC ABG pCO2 POC ABG pO2 ABG pO2 ABG HCO3 ABG Base Excess ABG Hemoglobin Oxyhemoglobin Sodium Potassium Chloride Carbon Dioxide BUN Creatinine Glucose POC Glucose 106 H Lactic Acid Calcium Phosphorus Magnesium Direct Bilirubin AST ALT Alkaline Phosphatase Lactate Dehydrogenase Troponin T C-Reactive Protein 24.40 H Total Protein Albumin Prealbumin Triglycerides Cholesterol LDL Cholesterol Direct HDL Cholesterol PTH Intact Urine pH Urine WBC (Auto) Urine Creatinine Urine Total Protein Fluid Total Protein Vancomycin Trough Rheumatoid Factor Complement C4 Miscellaneous Test Crossmatch See Detail 01/08/17 01/08/17 01/08/17 10:37 11:33 15:15 WBC RBC Hgb Hct MCV MCH MCHC RDW Plt Count Lymph % (Auto) [place] % (Auto) Lymph # [place] # Baso # Seg Neutrophils % Seg Neuts % (Manual) Lymphocytes % (Manual) Monocytes % (Manual) Eosinophils % (Manual) Basophils % (Manual) Nucleated RBC % Seg Neutrophils # Seg Neutrophils # Man Lymphocytes # (Manual) Monocytes # (Manual) Eosinophils # (Manual) Basophils # (Manual) PT INR Fibrinogen dRVVT Confirm Interp Factor V Activity POC ABG pH POC ABG pCO2 POC ABG pO2 ABG pO2 ABG HCO3 ABG Base Excess ABG Hemoglobin Oxyhemoglobin Sodium Potassium Chloride Carbon Dioxide BUN Creatinine Glucose POC Glucose 157 H Lactic Acid 9.70 H* 9.10 H* Calcium Phosphorus Magnesium Direct Bilirubin AST ALT Alkaline Phosphatase Lactate Dehydrogenase Troponin T C-Reactive Protein Total Protein Albumin Prealbumin Triglycerides Cholesterol LDL Cholesterol Direct HDL Cholesterol PTH Intact Urine pH Urine WBC (Auto) Urine Creatinine Urine Total Protein Fluid Total Protein Vancomycin Trough Rheumatoid Factor Complement C4 Miscellaneous Test Crossmatch 01/08/17 01/08/17 01/09/17 17:19 23:12 04:40 WBC RBC Hgb Hct MCV MCH MCHC RDW Plt Count Lymph % (Auto) [place] % (Auto) Lymph # [place] # Baso # Seg Neutrophils % Seg Neuts % (Manual) Lymphocytes % (Manual) Monocytes % (Manual) Eosinophils % (Manual) Basophils % (Manual) Nucleated RBC % Seg Neutrophils # Seg Neutrophils # Man Lymphocytes # (Manual) Monocytes # (Manual) Eosinophils # (Manual) Basophils # (Manual) PT INR Fibrinogen dRVVT Confirm Interp Factor V Activity POC ABG pH POC ABG pCO2 POC ABG pO2 ABG pO2 ABG HCO3 ABG Base Excess ABG Hemoglobin Oxyhemoglobin Sodium 147 H Potassium Chloride Carbon Dioxide BUN 82 H Creatinine 1.8 H Glucose 137 H POC Glucose 164 H 157 H Lactic Acid Calcium Phosphorus Magnesium Direct Bilirubin AST ALT Alkaline Phosphatase Lactate Dehydrogenase Troponin T C-Reactive Protein Total Protein Albumin Prealbumin Triglycerides Cholesterol LDL Cholesterol Direct HDL Cholesterol PTH Intact Urine pH Urine WBC (Auto) Urine Creatinine Urine Total Protein Fluid Total Protein Vancomycin Trough Rheumatoid Factor Complement C4 Miscellaneous Test Crossmatch 01/09/17 01/09/17 01/09/17 05:42 08:22 10:57 WBC RBC Hgb Hct MCV MCH MCHC RDW Plt Count Lymph % (Auto) [place] % (Auto) Lymph # [place] # Baso # Seg Neutrophils % Seg Neuts % (Manual) Lymphocytes % (Manual) Monocytes % (Manual) Eosinophils % (Manual) Basophils % (Manual) Nucleated RBC % Seg Neutrophils # Seg Neutrophils # Man Lymphocytes # (Manual) Monocytes # (Manual) Eosinophils # (Manual) Basophils # (Manual) PT INR Fibrinogen dRVVT Confirm Interp Factor V Activity POC ABG pH POC ABG pCO2 POC ABG pO2 ABG pO2 ABG HCO3 ABG Base Excess ABG Hemoglobin Oxyhemoglobin Sodium Potassium Chloride Carbon Dioxide BUN Creatinine Glucose POC Glucose 156 H 122 H Lactic Acid 2.30 H* Calcium Phosphorus Magnesium Direct Bilirubin AST ALT Alkaline Phosphatase Lactate Dehydrogenase Troponin T C-Reactive Protein Total Protein Albumin Prealbumin Triglycerides Cholesterol LDL Cholesterol Direct HDL Cholesterol PTH Intact Urine pH Urine WBC (Auto) Urine Creatinine Urine Total Protein Fluid Total Protein Vancomycin Trough Rheumatoid Factor Complement C4 Miscellaneous Test Crossmatch 01/09/17 01/09/17 01/09/17 13:30 17:14 18:45 WBC RBC Hgb Hct MCV MCH MCHC RDW Plt Count Lymph % (Auto) [place] % (Auto) Lymph # [place] # Baso # Seg Neutrophils % Seg Neuts % (Manual) Lymphocytes % (Manual) Monocytes % (Manual) Eosinophils % (Manual) Basophils % (Manual) Nucleated RBC % Seg Neutrophils # Seg Neutrophils # Man Lymphocytes # (Manual) Monocytes # (Manual) Eosinophils # (Manual) Basophils # (Manual) PT INR Fibrinogen dRVVT Confirm Interp Factor V Activity POC ABG pH POC ABG pCO2 POC ABG pO2 ABG pO2 ABG HCO3 ABG Base Excess ABG Hemoglobin Oxyhemoglobin Sodium Potassium Chloride Carbon Dioxide BUN Creatinine Glucose POC Glucose 127 H Lactic Acid Calcium Phosphorus Magnesium Direct Bilirubin AST ALT Alkaline Phosphatase Lactate Dehydrogenase Troponin T C-Reactive Protein 24.70 H Total Protein Albumin Prealbumin Triglycerides Cholesterol LDL Cholesterol Direct HDL Cholesterol PTH Intact Urine pH Urine WBC (Auto) Urine Creatinine Urine Total Protein Fluid Total Protein Vancomycin Trough Rheumatoid Factor Complement C4 Miscellaneous Test Flexitest 1 H Crossmatch 01/10/17 01/10/17 01/10/17 01:21 04:00 04:00 WBC 18.1 H RBC 3.22 L Hgb 8.8 L Hct 27.0 L D MCV MCH 27 L MCHC RDW 17.0 H Plt Count Lymph % (Auto) [place] % (Auto) Lymph # [place] # Baso # Seg Neutrophils % Seg Neuts % (Manual) Lymphocytes % (Manual) Monocytes % (Manual) Eosinophils % (Manual) Basophils % (Manual) Nucleated RBC % Seg Neutrophils # Seg Neutrophils # Man Lymphocytes # (Manual) Monocytes # (Manual) Eosinophils # (Manual) Basophils # (Manual) PT INR Fibrinogen dRVVT Confirm Interp Factor V Activity POC ABG pH POC ABG pCO2 POC ABG pO2 ABG pO2 ABG HCO3 ABG Base Excess ABG Hemoglobin Oxyhemoglobin Sodium Potassium Chloride Carbon Dioxide BUN 59 H Creatinine 1.3 H Glucose 122 H POC Glucose 160 H Lactic Acid Calcium Phosphorus Magnesium Direct Bilirubin AST ALT Alkaline Phosphatase Lactate Dehydrogenase Troponin T C-Reactive Protein Total Protein Albumin Prealbumin Triglycerides Cholesterol LDL Cholesterol Direct HDL Cholesterol PTH Intact Urine pH Urine WBC (Auto) Urine Creatinine Urine Total Protein Fluid Total Protein Vancomycin Trough Rheumatoid Factor Complement C4 Miscellaneous Test Crossmatch 01/10/17 01/10/17 01/10/17 05:36 12:14 17:55 WBC RBC Hgb Hct MCV MCH MCHC RDW Plt Count Lymph % (Auto) [place] % (Auto) Lymph # [place] # Baso # Seg Neutrophils % Seg Neuts % (Manual) Lymphocytes % (Manual) Monocytes % (Manual) Eosinophils % (Manual) Basophils % (Manual) Nucleated RBC % Seg Neutrophils # Seg Neutrophils # Man Lymphocytes # (Manual) Monocytes # (Manual) Eosinophils # (Manual) Basophils # (Manual) PT INR Fibrinogen dRVVT Confirm Interp Factor V Activity POC ABG pH POC ABG pCO2 POC ABG pO2 ABG pO2 ABG HCO3 ABG Base Excess ABG Hemoglobin Oxyhemoglobin Sodium Potassium Chloride Carbon Dioxide BUN Creatinine Glucose POC Glucose 163 H 120 H 144 H Lactic Acid Calcium Phosphorus Magnesium Direct Bilirubin AST ALT Alkaline Phosphatase Lactate Dehydrogenase Troponin T C-Reactive Protein Total Protein Albumin Prealbumin Triglycerides Cholesterol LDL Cholesterol Direct HDL Cholesterol PTH Intact Urine pH Urine WBC (Auto) Urine Creatinine Urine Total Protein Fluid Total Protein Vancomycin Trough Rheumatoid Factor Complement C4 Miscellaneous Test Crossmatch 01/11/17 01/11/17 01/11/17 00:09 04:00 04:00 WBC 15.8 H RBC 3.04 L Hgb 8.2 L Hct 25.5 L MCV MCH 27 L MCHC RDW 17.3 H Plt Count Lymph % (Auto) [place] % (Auto) Lymph # [place] # Baso # Seg Neutrophils % Seg Neuts % (Manual) Lymphocytes % (Manual) Monocytes % (Manual) Eosinophils % (Manual) Basophils % (Manual) Nucleated RBC % Seg Neutrophils # Seg Neutrophils # Man Lymphocytes # (Manual) Monocytes # (Manual) Eosinophils # (Manual) Basophils # (Manual) PT INR Fibrinogen dRVVT Confirm Interp Factor V Activity POC ABG pH POC ABG pCO2 POC ABG pO2 ABG pO2 ABG HCO3 ABG Base Excess ABG Hemoglobin Oxyhemoglobin Sodium Potassium Chloride Carbon Dioxide BUN 78 H Creatinine 1.6 H Glucose 109 H POC Glucose 122 H Lactic Acid Calcium Phosphorus Magnesium Direct Bilirubin AST ALT Alkaline Phosphatase Lactate Dehydrogenase Troponin T C-Reactive Protein Total Protein Albumin Prealbumin Triglycerides Cholesterol LDL Cholesterol Direct HDL Cholesterol PTH Intact Urine pH Urine WBC (Auto) Urine Creatinine Urine Total Protein Fluid Total Protein Vancomycin Trough Rheumatoid Factor Complement C4 Miscellaneous Test Crossmatch 01/11/17 01/11/17 01/11/17 12:46 18:23 23:42 WBC RBC Hgb Hct MCV MCH MCHC RDW Plt Count Lymph % (Auto) [place] % (Auto) Lymph # [place] # Baso # Seg Neutrophils % Seg Neuts % (Manual) Lymphocytes % (Manual) Monocytes % (Manual) Eosinophils % (Manual) Basophils % (Manual) Nucleated RBC % Seg Neutrophils # Seg Neutrophils # Man Lymphocytes # (Manual) Monocytes # (Manual) Eosinophils # (Manual) Basophils # (Manual) PT INR Fibrinogen dRVVT Confirm Interp Factor V Activity POC ABG pH POC ABG pCO2 POC ABG pO2 ABG pO2 ABG HCO3 ABG Base Excess ABG Hemoglobin Oxyhemoglobin Sodium Potassium Chloride Carbon Dioxide BUN Creatinine Glucose POC Glucose 148 H 125 H 124 H Lactic Acid Calcium Phosphorus Magnesium Direct Bilirubin AST ALT Alkaline Phosphatase Lactate Dehydrogenase Troponin T C-Reactive Protein Total Protein Albumin Prealbumin Triglycerides Cholesterol LDL Cholesterol Direct HDL Cholesterol PTH Intact Urine pH Urine WBC (Auto) Urine Creatinine Urine Total Protein Fluid Total Protein Vancomycin Trough Rheumatoid Factor Complement C4 Miscellaneous Test Crossmatch 01/12/17 01/12/17 01/12/17 04:30 04:30 05:47 WBC 15.8 H RBC 3.31 L Hgb 8.9 L Hct 27.9 L MCV MCH 27 L MCHC RDW 17.4 H Plt Count Lymph % (Auto) [place] % (Auto) Lymph # [place] # Baso # Seg Neutrophils % Seg Neuts % (Manual) Lymphocytes % (Manual) Monocytes % (Manual) Eosinophils % (Manual) Basophils % (Manual) Nucleated RBC % Seg Neutrophils # Seg Neutrophils # Man Lymphocytes # (Manual) Monocytes # (Manual) Eosinophils # (Manual) Basophils # (Manual) PT INR Fibrinogen dRVVT Confirm Interp Factor V Activity POC ABG pH POC ABG pCO2 POC ABG pO2 ABG pO2 ABG HCO3 ABG Base Excess ABG Hemoglobin Oxyhemoglobin Sodium Potassium Chloride Carbon Dioxide BUN 57 H Creatinine Glucose 121 H POC Glucose 110 H Lactic Acid Calcium Phosphorus 2.10 L Magnesium Direct Bilirubin AST ALT Alkaline Phosphatase Lactate Dehydrogenase Troponin T C-Reactive Protein Total Protein Albumin Prealbumin Triglycerides Cholesterol LDL Cholesterol Direct HDL Cholesterol PTH Intact Urine pH Urine WBC (Auto) Urine Creatinine Urine Total Protein Fluid Total Protein Vancomycin Trough Rheumatoid Factor Complement C4 Miscellaneous Test Crossmatch 01/12/17 01/12/17 01/12/17 11:35 17:45 23:14 WBC RBC Hgb Hct MCV MCH MCHC RDW Plt Count Lymph % (Auto) [place] % (Auto) Lymph # [place] # Baso # Seg Neutrophils % Seg Neuts % (Manual) Lymphocytes % (Manual) Monocytes % (Manual) Eosinophils % (Manual) Basophils % (Manual) Nucleated RBC % Seg Neutrophils # Seg Neutrophils # Man Lymphocytes # (Manual) Monocytes # (Manual) Eosinophils # (Manual) Basophils # (Manual) PT INR Fibrinogen dRVVT Confirm Interp Factor V Activity POC ABG pH POC ABG pCO2 POC ABG pO2 ABG pO2 ABG HCO3 ABG Base Excess ABG Hemoglobin Oxyhemoglobin Sodium Potassium Chloride Carbon Dioxide BUN Creatinine Glucose POC Glucose 146 H 117 H 123 H Lactic Acid Calcium Phosphorus Magnesium Direct Bilirubin AST ALT Alkaline Phosphatase Lactate Dehydrogenase Troponin T C-Reactive Protein Total Protein Albumin Prealbumin Triglycerides Cholesterol LDL Cholesterol Direct HDL Cholesterol PTH Intact Urine pH Urine WBC (Auto) Urine Creatinine Urine Total Protein Fluid Total Protein Vancomycin Trough Rheumatoid Factor Complement C4 Miscellaneous Test Crossmatch 01/13/17 01/13/17 01/13/17 05:32 06:00 12:10 WBC RBC Hgb Hct MCV MCH MCHC RDW Plt Count Lymph % (Auto) [place] % (Auto) Lymph # [place] # Baso # Seg Neutrophils % Seg Neuts % (Manual) Lymphocytes % (Manual) Monocytes % (Manual) Eosinophils % (Manual) Basophils % (Manual) Nucleated RBC % Seg Neutrophils # Seg Neutrophils # Man Lymphocytes # (Manual) Monocytes # (Manual) Eosinophils # (Manual) Basophils # (Manual) PT INR Fibrinogen dRVVT Confirm Interp Factor V Activity POC ABG pH POC ABG pCO2 POC ABG pO2 ABG pO2 ABG HCO3 ABG Base Excess ABG Hemoglobin Oxyhemoglobin Sodium Potassium Chloride Carbon Dioxide BUN 80 H Creatinine 1.4 H Glucose 106 H POC Glucose 106 H Lactic Acid Calcium Phosphorus Magnesium Direct Bilirubin AST ALT Alkaline Phosphatase Lactate Dehydrogenase Troponin T C-Reactive Protein Total Protein Albumin Prealbumin Triglycerides Cholesterol LDL Cholesterol Direct HDL Cholesterol PTH Intact Urine pH Urine WBC (Auto) Urine Creatinine Urine Total Protein Fluid Total Protein 3.0 L Vancomycin Trough Rheumatoid Factor Complement C4 Miscellaneous Test Crossmatch 01/13/17 01/13/17 01/13/17 12:17 15:50 17:30 WBC RBC Hgb Hct MCV MCH MCHC RDW Plt Count Lymph % (Auto) [place] % (Auto) Lymph # [place] # Baso # Seg Neutrophils % Seg Neuts % (Manual) Lymphocytes % (Manual) Monocytes % (Manual) Eosinophils % (Manual) Basophils % (Manual) Nucleated RBC % Seg Neutrophils # Seg Neutrophils # Man Lymphocytes # (Manual) Monocytes # (Manual) Eosinophils # (Manual) Basophils # (Manual) PT 15.4 H INR 1.16 H Fibrinogen dRVVT Confirm Interp Factor V Activity POC ABG pH POC ABG pCO2 POC ABG pO2 ABG pO2 ABG HCO3 ABG Base Excess ABG Hemoglobin Oxyhemoglobin Sodium Potassium Chloride Carbon Dioxide BUN Creatinine Glucose POC Glucose 168 H 110 H Lactic Acid Calcium Phosphorus Magnesium Direct Bilirubin AST ALT Alkaline Phosphatase Lactate Dehydrogenase Troponin T C-Reactive Protein Total Protein Albumin Prealbumin Triglycerides Cholesterol LDL Cholesterol Direct HDL Cholesterol PTH Intact Urine pH Urine WBC (Auto) Urine Creatinine Urine Total Protein Fluid Total Protein Vancomycin Trough Rheumatoid Factor Complement C4 Miscellaneous Test Crossmatch 01/13/17 01/14/17 01/14/17 23:42 05:24 05:30 WBC RBC Hgb Hct MCV MCH MCHC RDW Plt Count Lymph % (Auto) [place] % (Auto) Lymph # [place] # Baso # Seg Neutrophils % Seg Neuts % (Manual) Lymphocytes % (Manual) Monocytes % (Manual) Eosinophils % (Manual) Basophils % (Manual) Nucleated RBC % Seg Neutrophils # Seg Neutrophils # Man Lymphocytes # (Manual) Monocytes # (Manual) Eosinophils # (Manual) Basophils # (Manual) PT INR Fibrinogen dRVVT Confirm Interp Factor V Activity POC ABG pH POC ABG pCO2 POC ABG pO2 ABG pO2 ABG HCO3 ABG Base Excess ABG Hemoglobin Oxyhemoglobin Sodium Potassium Chloride Carbon Dioxide BUN 58 H Creatinine Glucose 114 H POC Glucose 155 H 121 H Lactic Acid Calcium Phosphorus Magnesium Direct Bilirubin AST ALT Alkaline Phosphatase Lactate Dehydrogenase Troponin T C-Reactive Protein Total Protein Albumin Prealbumin Triglycerides Cholesterol LDL Cholesterol Direct HDL Cholesterol PTH Intact Urine pH Urine WBC (Auto) Urine Creatinine Urine Total Protein Fluid Total Protein Vancomycin Trough Rheumatoid Factor Complement C4 Miscellaneous Test Crossmatch 01/14/17 01/14/17 01/15/17 12:48 17:36 00:15 WBC RBC Hgb Hct MCV MCH MCHC RDW Plt Count Lymph % (Auto) [place] % (Auto) Lymph # [place] # Baso # Seg Neutrophils % Seg Neuts % (Manual) Lymphocytes % (Manual) Monocytes % (Manual) Eosinophils % (Manual) Basophils % (Manual) Nucleated RBC % Seg Neutrophils # Seg Neutrophils # Man Lymphocytes # (Manual) Monocytes # (Manual) Eosinophils # (Manual) Basophils # (Manual) PT INR Fibrinogen dRVVT Confirm Interp Factor V Activity POC ABG pH POC ABG pCO2 POC ABG pO2 ABG pO2 ABG HCO3 ABG Base Excess ABG Hemoglobin Oxyhemoglobin Sodium Potassium Chloride Carbon Dioxide BUN Creatinine Glucose POC Glucose 130 H 135 H 132 H Lactic Acid Calcium Phosphorus Magnesium Direct Bilirubin AST ALT Alkaline Phosphatase Lactate Dehydrogenase Troponin T C-Reactive Protein Total Protein Albumin Prealbumin Triglycerides Cholesterol LDL Cholesterol Direct HDL Cholesterol PTH Intact Urine pH Urine WBC (Auto) Urine Creatinine Urine Total Protein Fluid Total Protein Vancomycin Trough Rheumatoid Factor Complement C4 Miscellaneous Test Crossmatch 01/15/17 01/15/17 01/15/17 05:01 11:55 12:45 WBC 16.2 H RBC 3.00 L Hgb 8.1 L Hct 25.4 L MCV MCH 27 L MCHC RDW 17.6 H Plt Count Lymph % (Auto) 11.7 L [place] % (Auto) 7.8 H Lymph # [place] # 1.3 H Baso # Seg Neutrophils % 80.1 H Seg Neuts % (Manual) Lymphocytes % (Manual) Monocytes % (Manual) Eosinophils % (Manual) Basophils % (Manual) Nucleated RBC % Seg Neutrophils # 13.0 H Seg Neutrophils # Man Lymphocytes # (Manual) Monocytes # (Manual) Eosinophils # (Manual) Basophils # (Manual) PT INR Fibrinogen dRVVT Confirm Interp Factor V Activity POC ABG pH POC ABG pCO2 POC ABG pO2 ABG pO2 ABG HCO3 ABG Base Excess ABG Hemoglobin Oxyhemoglobin Sodium Potassium Chloride Carbon Dioxide BUN Creatinine Glucose POC Glucose 126 H 125 H Lactic Acid Calcium Phosphorus Magnesium Direct Bilirubin AST ALT Alkaline Phosphatase Lactate Dehydrogenase Troponin T C-Reactive Protein Total Protein Albumin Prealbumin Triglycerides Cholesterol LDL Cholesterol Direct HDL Cholesterol PTH Intact Urine pH Urine WBC (Auto) Urine Creatinine Urine Total Protein Fluid Total Protein Vancomycin Trough Rheumatoid Factor Complement C4 Miscellaneous Test Crossmatch 01/15/17 01/15/17 01/15/17 12:45 17:31 23:39 WBC RBC Hgb Hct MCV MCH MCHC RDW Plt Count Lymph % (Auto) [place] % (Auto) Lymph # [place] # Baso # Seg Neutrophils % Seg Neuts % (Manual) Lymphocytes % (Manual) Monocytes % (Manual) Eosinophils % (Manual) Basophils % (Manual) Nucleated RBC % Seg Neutrophils # Seg Neutrophils # Man Lymphocytes # (Manual) Monocytes # (Manual) Eosinophils # (Manual) Basophils # (Manual) PT INR Fibrinogen dRVVT Confirm Interp Factor V Activity POC ABG pH POC ABG pCO2 POC ABG pO2 ABG pO2 ABG HCO3 ABG Base Excess ABG Hemoglobin Oxyhemoglobin Sodium 136 L Potassium Chloride Carbon Dioxide BUN 87 H Creatinine 1.7 H Glucose 108 H POC Glucose 129 H 112 H Lactic Acid Calcium Phosphorus Magnesium Direct Bilirubin AST ALT Alkaline Phosphatase Lactate Dehydrogenase Troponin T C-Reactive Protein Total Protein Albumin Prealbumin Triglycerides Cholesterol LDL Cholesterol Direct HDL Cholesterol PTH Intact Urine pH Urine WBC (Auto) Urine Creatinine Urine Total Protein Fluid Total Protein Vancomycin Trough Rheumatoid Factor Complement C4 Miscellaneous Test Crossmatch 01/16/17 01/16/17 01/16/17 05:23 11:42 12:32 WBC RBC Hgb Hct MCV MCH MCHC RDW Plt Count Lymph % (Auto) [place] % (Auto) Lymph # [place] # Baso # Seg Neutrophils % Seg Neuts % (Manual) Lymphocytes % (Manual) Monocytes % (Manual) Eosinophils % (Manual) Basophils % (Manual) Nucleated RBC % Seg Neutrophils # Seg Neutrophils # Man Lymphocytes # (Manual) Monocytes # (Manual) Eosinophils # (Manual) Basophils # (Manual) PT INR Fibrinogen dRVVT Confirm Interp Factor V Activity POC ABG pH 7.499 H POC ABG pCO2 30.9 L POC ABG pO2 51 L ABG pO2 ABG HCO3 ABG Base Excess ABG Hemoglobin Oxyhemoglobin Sodium Potassium Chloride Carbon Dioxide BUN Creatinine Glucose POC Glucose 118 H 133 H Lactic Acid Calcium Phosphorus Magnesium Direct Bilirubin AST ALT Alkaline Phosphatase Lactate Dehydrogenase Troponin T C-Reactive Protein Total Protein Albumin Prealbumin Triglycerides Cholesterol LDL Cholesterol Direct HDL Cholesterol PTH Intact Urine pH Urine WBC (Auto) Urine Creatinine Urine Total Protein Fluid Total Protein Vancomycin Trough Rheumatoid Factor Complement C4 Miscellaneous Test Crossmatch 01/16/17 01/16/17 01/16/17 17:52 23:57 Unknown WBC RBC Hgb Hct MCV MCH MCHC RDW Plt Count Lymph % (Auto) [place] % (Auto) Lymph # [place] # Baso # Seg Neutrophils % Seg Neuts % (Manual) Lymphocytes % (Manual) Monocytes % (Manual) Eosinophils % (Manual) Basophils % (Manual) Nucleated RBC % Seg Neutrophils # Seg Neutrophils # Man Lymphocytes # (Manual) Monocytes # (Manual) Eosinophils # (Manual) Basophils # (Manual) PT INR Fibrinogen dRVVT Confirm Interp Factor V Activity POC ABG pH POC ABG pCO2 POC ABG pO2 ABG pO2 ABG HCO3 ABG Base Excess ABG Hemoglobin Oxyhemoglobin Sodium 135 L Potassium Chloride Carbon Dioxide BUN 101 H Creatinine 1.8 H Glucose 117 H POC Glucose 130 H 143 H Lactic Acid Calcium Phosphorus 5.80 H Magnesium Direct Bilirubin AST ALT Alkaline Phosphatase Lactate Dehydrogenase Troponin T C-Reactive Protein Total Protein Albumin Prealbumin Triglycerides Cholesterol LDL Cholesterol Direct HDL Cholesterol PTH Intact Urine pH Urine WBC (Auto) Urine Creatinine Urine Total Protein Fluid Total Protein Vancomycin Trough Rheumatoid Factor Complement C4 Miscellaneous Test Crossmatch 01/17/17 01/17/17 01/17/17 05:30 05:46 11:49 WBC RBC Hgb Hct MCV MCH MCHC RDW Plt Count Lymph % (Auto) [place] % (Auto) Lymph # [place] # Baso # Seg Neutrophils % Seg Neuts % (Manual) Lymphocytes % (Manual) Monocytes % (Manual) Eosinophils % (Manual) Basophils % (Manual) Nucleated RBC % Seg Neutrophils # Seg Neutrophils # Man Lymphocytes # (Manual) Monocytes # (Manual) Eosinophils # (Manual) Basophils # (Manual) PT INR Fibrinogen dRVVT Confirm Interp Factor V Activity POC ABG pH POC ABG pCO2 POC ABG pO2 ABG pO2 ABG HCO3 ABG Base Excess ABG Hemoglobin Oxyhemoglobin Sodium 134 L Potassium Chloride 95.8 L Carbon Dioxide BUN 66 H Creatinine 1.3 H Glucose 138 H POC Glucose 147 H 124 H Lactic Acid Calcium Phosphorus Magnesium Direct Bilirubin AST ALT Alkaline Phosphatase 254 H Lactate Dehydrogenase Troponin T C-Reactive Protein Total Protein Albumin 1.3 L Prealbumin Triglycerides Cholesterol LDL Cholesterol Direct HDL Cholesterol PTH Intact Urine pH Urine WBC (Auto) Urine Creatinine Urine Total Protein Fluid Total Protein Vancomycin Trough Rheumatoid Factor Complement C4 Miscellaneous Test Crossmatch 01/17/17 01/17/17 01/18/17 17:30 23:41 05:15 WBC RBC Hgb Hct MCV MCH MCHC RDW Plt Count Lymph % (Auto) [place] % (Auto) Lymph # [place] # Baso # Seg Neutrophils % Seg Neuts % (Manual) Lymphocytes % (Manual) Monocytes % (Manual) Eosinophils % (Manual) Basophils % (Manual) Nucleated RBC % Seg Neutrophils # Seg Neutrophils # Man Lymphocytes # (Manual) Monocytes # (Manual) Eosinophils # (Manual) Basophils # (Manual) PT INR Fibrinogen dRVVT Confirm Interp Factor V Activity POC ABG pH POC ABG pCO2 POC ABG pO2 ABG pO2 ABG HCO3 ABG Base Excess ABG Hemoglobin Oxyhemoglobin Sodium Potassium Chloride Carbon Dioxide BUN 89 H Creatinine 1.7 H Glucose 118 H POC Glucose 137 H 119 H Lactic Acid Calcium Phosphorus Magnesium Direct Bilirubin AST ALT Alkaline Phosphatase Lactate Dehydrogenase Troponin T C-Reactive Protein Total Protein Albumin Prealbumin Triglycerides Cholesterol LDL Cholesterol Direct HDL Cholesterol PTH Intact Urine pH Urine WBC (Auto) Urine Creatinine Urine Total Protein Fluid Total Protein Vancomycin Trough Rheumatoid Factor Complement C4 Miscellaneous Test Crossmatch 1101/18/17 01/18/17 05:19 12:16 18:11 WBC RBC Hgb Hct MCV MCH MCHC RDW Plt Count Lymph % (Auto) [place] % (Auto) Lymph # [place] # Baso # Seg Neutrophils % Seg Neuts % (Manual) Lymphocytes % (Manual) Monocytes % (Manual) Eosinophils % (Manual) Basophils % (Manual) Nucleated RBC % Seg Neutrophils # Seg Neutrophils # Man Lymphocytes # (Manual) Monocytes # (Manual) Eosinophils # (Manual) Basophils # (Manual) PT INR Fibrinogen dRVVT Confirm Interp Factor V Activity POC ABG pH POC ABG pCO2 POC ABG pO2 ABG pO2 ABG HCO3 ABG Base Excess ABG Hemoglobin Oxyhemoglobin Sodium Potassium Chloride Carbon Dioxide BUN Creatinine Glucose POC Glucose 134 H 188 H 113 H Lactic Acid Calcium Phosphorus Magnesium Direct Bilirubin AST ALT Alkaline Phosphatase Lactate Dehydrogenase Troponin T C-Reactive Protein Total Protein Albumin Prealbumin Triglycerides Cholesterol LDL Cholesterol Direct HDL Cholesterol PTH Intact Urine pH Urine WBC (Auto) Urine Creatinine Urine Total Protein Fluid Total Protein Vancomycin Trough Rheumatoid Factor Complement C4 Miscellaneous Test Crossmatch 01/19/17 01/19/17 01/19/17 00:00 05:30 05:36 WBC RBC Hgb Hct MCV MCH MCHC RDW Plt Count Lymph % (Auto) [place] % (Auto) Lymph # [place] # Baso # Seg Neutrophils % Seg Neuts % (Manual) Lymphocytes % (Manual) Monocytes % (Manual) Eosinophils % (Manual) Basophils % (Manual) Nucleated RBC % Seg Neutrophils # Seg Neutrophils # Man Lymphocytes # (Manual) Monocytes # (Manual) Eosinophils # (Manual) Basophils # (Manual) PT INR Fibrinogen dRVVT Confirm Interp Factor V Activity POC ABG pH POC ABG pCO2 POC ABG pO2 ABG pO2 ABG HCO3 ABG Base Excess ABG Hemoglobin Oxyhemoglobin Sodium Potassium Chloride Carbon Dioxide BUN 70 H Creatinine 1.5 H Glucose 121 H POC Glucose 137 H 155 H Lactic Acid Calcium Phosphorus 2.10 L D Magnesium Direct Bilirubin AST ALT Alkaline Phosphatase Lactate Dehydrogenase Troponin T C-Reactive Protein Total Protein Albumin Prealbumin Triglycerides Cholesterol LDL Cholesterol Direct HDL Cholesterol PTH Intact Urine pH Urine WBC (Auto) Urine Creatinine Urine Total Protein Fluid Total Protein Vancomycin Trough Rheumatoid Factor Complement C4 Miscellaneous Test Crossmatch 01/19/17 01/19/17 01/19/17 11:59 15:32 17:57 WBC RBC Hgb Hct MCV MCH MCHC RDW Plt Count Lymph % (Auto) [place] % (Auto) Lymph # [place] # Baso # Seg Neutrophils % Seg Neuts % (Manual) Lymphocytes % (Manual) Monocytes % (Manual) Eosinophils % (Manual) Basophils % (Manual) Nucleated RBC % Seg Neutrophils # Seg Neutrophils # Man Lymphocytes # (Manual) Monocytes # (Manual) Eosinophils # (Manual) Basophils # (Manual) PT INR Fibrinogen dRVVT Confirm Interp Factor V Activity POC ABG pH POC ABG pCO2 33.1 L POC ABG pO2 76 L ABG pO2 ABG HCO3 ABG Base Excess ABG Hemoglobin Oxyhemoglobin Sodium Potassium Chloride Carbon Dioxide BUN Creatinine Glucose POC Glucose 156 H 129 H Lactic Acid Calcium Phosphorus Magnesium Direct Bilirubin AST ALT Alkaline Phosphatase Lactate Dehydrogenase Troponin T C-Reactive Protein Total Protein Albumin Prealbumin Triglycerides Cholesterol LDL Cholesterol Direct HDL Cholesterol PTH Intact Urine pH Urine WBC (Auto) Urine Creatinine Urine Total Protein Fluid Total Protein Vancomycin Trough Rheumatoid Factor Complement C4 Miscellaneous Test Crossmatch 01/19/17 01/20/17 01/20/17 23:49 04:00 05:21 WBC RBC Hgb Hct MCV MCH MCHC RDW Plt Count Lymph % (Auto) [place] % (Auto) Lymph # [place] # Baso # Seg Neutrophils % Seg Neuts % (Manual) Lymphocytes % (Manual) Monocytes % (Manual) Eosinophils % (Manual) Basophils % (Manual) Nucleated RBC % Seg Neutrophils # Seg Neutrophils # Man Lymphocytes # (Manual) Monocytes # (Manual) Eosinophils # (Manual) Basophils # (Manual) PT INR Fibrinogen dRVVT Confirm Interp Factor V Activity POC ABG pH POC ABG pCO2 POC ABG pO2 ABG pO2 ABG HCO3 ABG Base Excess ABG Hemoglobin Oxyhemoglobin Sodium Potassium Chloride Carbon Dioxide BUN 96 H Creatinine 1.9 H Glucose 106 H POC Glucose 125 H 130 H Lactic Acid Calcium Phosphorus 2.40 L Magnesium Direct Bilirubin AST ALT Alkaline Phosphatase Lactate Dehydrogenase Troponin T C-Reactive Protein Total Protein Albumin Prealbumin Triglycerides Cholesterol LDL Cholesterol Direct HDL Cholesterol PTH Intact Urine pH Urine WBC (Auto) Urine Creatinine Urine Total Protein Fluid Total Protein Vancomycin Trough Rheumatoid Factor Complement C4 Miscellaneous Test Crossmatch 01/20/17 01/20/17 01/20/17 11:58 12:17 17:26 WBC RBC Hgb Hct MCV MCH MCHC RDW Plt Count Lymph % (Auto) [place] % (Auto) Lymph # [place] # Baso # Seg Neutrophils % Seg Neuts % (Manual) Lymphocytes % (Manual) Monocytes % (Manual) Eosinophils % (Manual) Basophils % (Manual) Nucleated RBC % Seg Neutrophils # Seg Neutrophils # Man Lymphocytes # (Manual) Monocytes # (Manual) Eosinophils # (Manual) Basophils # (Manual) PT INR Fibrinogen dRVVT Confirm Interp Factor V Activity POC ABG pH POC ABG pCO2 POC ABG pO2 70 L ABG pO2 ABG HCO3 ABG Base Excess ABG Hemoglobin Oxyhemoglobin Sodium Potassium Chloride Carbon Dioxide BUN Creatinine Glucose POC Glucose 118 H 154 H Lactic Acid Calcium Phosphorus Magnesium Direct Bilirubin AST ALT Alkaline Phosphatase Lactate Dehydrogenase Troponin T C-Reactive Protein Total Protein Albumin Prealbumin Triglycerides Cholesterol LDL Cholesterol Direct HDL Cholesterol PTH Intact Urine pH Urine WBC (Auto) Urine Creatinine Urine Total Protein Fluid Total Protein Vancomycin Trough Rheumatoid Factor Complement C4 Miscellaneous Test Crossmatch 01/21/17 01/21/17 01/21/17 04:00 04:56 11:46 WBC RBC Hgb Hct MCV MCH MCHC RDW Plt Count Lymph % (Auto) [place] % (Auto) Lymph # [place] # Baso # Seg Neutrophils % Seg Neuts % (Manual) Lymphocytes % (Manual) Monocytes % (Manual) Eosinophils % (Manual) Basophils % (Manual) Nucleated RBC % Seg Neutrophils # Seg Neutrophils # Man Lymphocytes # (Manual) Monocytes # (Manual) Eosinophils # (Manual) Basophils # (Manual) PT INR Fibrinogen dRVVT Confirm Interp Factor V Activity POC ABG pH POC ABG pCO2 POC ABG pO2 ABG pO2 ABG HCO3 ABG Base Excess ABG Hemoglobin Oxyhemoglobin Sodium Potassium 3.5 L Chloride 97.4 L Carbon Dioxide BUN 66 H Creatinine 1.4 H Glucose POC Glucose 116 H 106 H Lactic Acid Calcium Phosphorus 2.10 L Magnesium Direct Bilirubin AST ALT Alkaline Phosphatase Lactate Dehydrogenase Troponin T C-Reactive Protein Total Protein Albumin Prealbumin Triglycerides Cholesterol LDL Cholesterol Direct HDL Cholesterol PTH Intact Urine pH Urine WBC (Auto) Urine Creatinine Urine Total Protein Fluid Total Protein Vancomycin Trough Rheumatoid Factor Complement C4 Miscellaneous Test Crossmatch 01/21/17 01/21/17 01/22/17 17:25 23:49 05:35 WBC RBC Hgb Hct MCV MCH MCHC RDW Plt Count Lymph % (Auto) [place] % (Auto) Lymph # [place] # Baso # Seg Neutrophils % Seg Neuts % (Manual) Lymphocytes % (Manual) Monocytes % (Manual) Eosinophils % (Manual) Basophils % (Manual) Nucleated RBC % Seg Neutrophils # Seg Neutrophils # Man Lymphocytes # (Manual) Monocytes # (Manual) Eosinophils # (Manual) Basophils # (Manual) PT INR Fibrinogen dRVVT Confirm Interp Factor V Activity POC ABG pH POC ABG pCO2 POC ABG pO2 ABG pO2 ABG HCO3 ABG Base Excess ABG Hemoglobin Oxyhemoglobin Sodium Potassium Chloride Carbon Dioxide BUN Creatinine Glucose POC Glucose 106 H 133 H 107 H Lactic Acid Calcium Phosphorus Magnesium Direct Bilirubin AST ALT Alkaline Phosphatase Lactate Dehydrogenase Troponin T C-Reactive Protein Total Protein Albumin Prealbumin Triglycerides Cholesterol LDL Cholesterol Direct HDL Cholesterol PTH Intact Urine pH Urine WBC (Auto) Urine Creatinine Urine Total Protein Fluid Total Protein Vancomycin Trough Rheumatoid Factor Complement C4 Miscellaneous Test Crossmatch 01/22/17 01/22/17 01/22/17 07:20 07:20 11:31 WBC RBC 2.75 L Hgb 7.5 L Hct 22.7 L MCV MCH 27 L MCHC RDW 17.5 H Plt Count Lymph % (Auto) [place] % (Auto) Lymph # [place] # Baso # Seg Neutrophils % Seg Neuts % (Manual) Lymphocytes % (Manual) Monocytes % (Manual) Eosinophils % (Manual) Basophils % (Manual) Nucleated RBC % Seg Neutrophils # Seg Neutrophils # Man Lymphocytes # (Manual) Monocytes # (Manual) Eosinophils # (Manual) Basophils # (Manual) PT INR Fibrinogen dRVVT Confirm Interp Factor V Activity POC ABG pH POC ABG pCO2 POC ABG pO2 ABG pO2 ABG HCO3 ABG Base Excess ABG Hemoglobin Oxyhemoglobin Sodium Potassium 3.3 L Chloride Carbon Dioxide BUN 42 H Creatinine Glucose 105 H POC Glucose 124 H Lactic Acid Calcium Phosphorus 1.70 L Magnesium Direct Bilirubin AST ALT Alkaline Phosphatase Lactate Dehydrogenase Troponin T C-Reactive Protein Total Protein Albumin Prealbumin Triglycerides Cholesterol LDL Cholesterol Direct HDL Cholesterol PTH Intact Urine pH Urine WBC (Auto) Urine Creatinine Urine Total Protein Fluid Total Protein Vancomycin Trough Rheumatoid Factor Complement C4 Miscellaneous Test Crossmatch 01/22/17 01/22/17 01/23/17 17:16 23:35 05:35 WBC RBC Hgb Hct MCV MCH MCHC RDW Plt Count Lymph % (Auto) [place] % (Auto) Lymph # [place] # Baso # Seg Neutrophils % Seg Neuts % (Manual) Lymphocytes % (Manual) Monocytes % (Manual) Eosinophils % (Manual) Basophils % (Manual) Nucleated RBC % Seg Neutrophils # Seg Neutrophils # Man Lymphocytes # (Manual) Monocytes # (Manual) Eosinophils # (Manual) Basophils # (Manual) PT INR Fibrinogen dRVVT Confirm Interp Factor V Activity POC ABG pH POC ABG pCO2 POC ABG pO2 ABG pO2 ABG HCO3 ABG Base Excess ABG Hemoglobin Oxyhemoglobin Sodium Potassium Chloride Carbon Dioxide BUN Creatinine Glucose POC Glucose 135 H 120 H 111 H Lactic Acid Calcium Phosphorus Magnesium Direct Bilirubin AST ALT Alkaline Phosphatase Lactate Dehydrogenase Troponin T C-Reactive Protein Total Protein Albumin Prealbumin Triglycerides Cholesterol LDL Cholesterol Direct HDL Cholesterol PTH Intact Urine pH Urine WBC (Auto) Urine Creatinine Urine Total Protein Fluid Total Protein Vancomycin Trough Rheumatoid Factor Complement C4 Miscellaneous Test Crossmatch 01/23/17 01/23/17 01/23/17 06:10 17:27 23:44 WBC RBC Hgb Hct MCV MCH MCHC RDW Plt Count Lymph % (Auto) [place] % (Auto) Lymph # [place] # Baso # Seg Neutrophils % Seg Neuts % (Manual) Lymphocytes % (Manual) Monocytes % (Manual) Eosinophils % (Manual) Basophils % (Manual) Nucleated RBC % Seg Neutrophils # Seg Neutrophils # Man Lymphocytes # (Manual) Monocytes # (Manual) Eosinophils # (Manual) Basophils # (Manual) PT INR Fibrinogen dRVVT Confirm Interp Factor V Activity POC ABG pH POC ABG pCO2 POC ABG pO2 ABG pO2 ABG HCO3 ABG Base Excess ABG Hemoglobin Oxyhemoglobin Sodium Potassium 3.3 L Chloride Carbon Dioxide BUN 66 H Creatinine 1.3 H Glucose 109 H POC Glucose 120 H 115 H Lactic Acid Calcium Phosphorus 2.20 L D Magnesium Direct Bilirubin AST ALT Alkaline Phosphatase Lactate Dehydrogenase Troponin T C-Reactive Protein Total Protein Albumin Prealbumin Triglycerides Cholesterol LDL Cholesterol Direct HDL Cholesterol PTH Intact Urine pH Urine WBC (Auto) Urine Creatinine Urine Total Protein Fluid Total Protein Vancomycin Trough Rheumatoid Factor Complement C4 Miscellaneous Test Crossmatch 01/24/17 01/24/17 01/24/17 05:19 05:50 12:19 WBC RBC Hgb Hct MCV MCH MCHC RDW Plt Count Lymph % (Auto) [place] % (Auto) Lymph # [place] # Baso # Seg Neutrophils % Seg Neuts % (Manual) Lymphocytes % (Manual) Monocytes % (Manual) Eosinophils % (Manual) Basophils % (Manual) Nucleated RBC % Seg Neutrophils # Seg Neutrophils # Man Lymphocytes # (Manual) Monocytes # (Manual) Eosinophils # (Manual) Basophils # (Manual) PT INR Fibrinogen dRVVT Confirm Interp Factor V Activity POC ABG pH POC ABG pCO2 POC ABG pO2 ABG pO2 ABG HCO3 ABG Base Excess ABG Hemoglobin Oxyhemoglobin Sodium Potassium Chloride Carbon Dioxide BUN 47 H Creatinine Glucose 117 H POC Glucose 126 H 119 H Lactic Acid Calcium Phosphorus 2.30 L Magnesium 1.60 L Direct Bilirubin AST ALT Alkaline Phosphatase Lactate Dehydrogenase Troponin T C-Reactive Protein Total Protein Albumin Prealbumin Triglycerides Cholesterol LDL Cholesterol Direct HDL Cholesterol PTH Intact Urine pH Urine WBC (Auto) Urine Creatinine Urine Total Protein Fluid Total Protein Vancomycin Trough Rheumatoid Factor Complement C4 Miscellaneous Test Crossmatch 01/24/17 01/25/17 01/25/17 17:08 00:37 04:00 WBC RBC Hgb Hct MCV MCH MCHC RDW Plt Count Lymph % (Auto) [place] % (Auto) Lymph # [place] # Baso # Seg Neutrophils % Seg Neuts % (Manual) Lymphocytes % (Manual) Monocytes % (Manual) Eosinophils % (Manual) Basophils % (Manual) Nucleated RBC % Seg Neutrophils # Seg Neutrophils # Man Lymphocytes # (Manual) Monocytes # (Manual) Eosinophils # (Manual) Basophils # (Manual) PT INR Fibrinogen dRVVT Confirm Interp Factor V Activity POC ABG pH POC ABG pCO2 POC ABG pO2 ABG pO2 ABG HCO3 ABG Base Excess ABG Hemoglobin Oxyhemoglobin Sodium Potassium Chloride Carbon Dioxide BUN 72 H Creatinine 1.3 H Glucose POC Glucose 127 H 110 H Lactic Acid Calcium Phosphorus Magnesium Direct Bilirubin AST ALT Alkaline Phosphatase Lactate Dehydrogenase Troponin T C-Reactive Protein Total Protein Albumin Prealbumin Triglycerides Cholesterol LDL Cholesterol Direct HDL Cholesterol PTH Intact Urine pH Urine WBC (Auto) Urine Creatinine Urine Total Protein Fluid Total Protein Vancomycin Trough Rheumatoid Factor Complement C4 Miscellaneous Test Crossmatch 01/25/17 01/25/17 01/25/17 04:00 11:15 13:05 WBC RBC 2.49 L Hgb 6.7 L Hct 20.9 L MCV MCH 27 L MCHC RDW 18.8 H Plt Count Lymph % (Auto) [place] % (Auto) 10.1 H Lymph # [place] # 1.0 H Baso # Seg Neutrophils % Seg Neuts % (Manual) Lymphocytes % (Manual) Monocytes % (Manual) Eosinophils % (Manual) Basophils % (Manual) Nucleated RBC % Seg Neutrophils # Seg Neutrophils # Man Lymphocytes # (Manual) Monocytes # (Manual) Eosinophils # (Manual) Basophils # (Manual) PT INR Fibrinogen dRVVT Confirm Interp Factor V Activity POC ABG pH POC ABG pCO2 POC ABG pO2 ABG pO2 ABG HCO3 ABG Base Excess ABG Hemoglobin Oxyhemoglobin Sodium Potassium Chloride Carbon Dioxide BUN Creatinine Glucose POC Glucose 128 H Lactic Acid Calcium Phosphorus Magnesium Direct Bilirubin AST ALT Alkaline Phosphatase Lactate Dehydrogenase Troponin T C-Reactive Protein Total Protein Albumin Prealbumin Triglycerides Cholesterol LDL Cholesterol Direct HDL Cholesterol PTH Intact Urine pH Urine WBC (Auto) Urine Creatinine Urine Total Protein Fluid Total Protein Vancomycin Trough Rheumatoid Factor Complement C4 Miscellaneous Test Crossmatch See Detail 01/25/17 01/25/17 01/26/17 18:02 23:07 01:20 WBC RBC Hgb Hct MCV MCH MCHC RDW Plt Count Lymph % (Auto) [place] % (Auto) Lymph # [place] # Baso # Seg Neutrophils % Seg Neuts % (Manual) Lymphocytes % (Manual) Monocytes % (Manual) Eosinophils % (Manual) Basophils % (Manual) Nucleated RBC % Seg Neutrophils # Seg Neutrophils # Man Lymphocytes # (Manual) Monocytes # (Manual) Eosinophils # (Manual) Basophils # (Manual) PT INR Fibrinogen dRVVT Confirm Interp Factor V Activity POC ABG pH POC ABG pCO2 POC ABG pO2 ABG pO2 ABG HCO3 ABG Base Excess ABG Hemoglobin Oxyhemoglobin Sodium Potassium Chloride Carbon Dioxide BUN Creatinine Glucose POC Glucose 120 H 123 H 112 H Lactic Acid Calcium Phosphorus Magnesium Direct Bilirubin AST ALT Alkaline Phosphatase Lactate Dehydrogenase Troponin T C-Reactive Protein Total Protein Albumin Prealbumin Triglycerides Cholesterol LDL Cholesterol Direct HDL Cholesterol PTH Intact Urine pH Urine WBC (Auto) Urine Creatinine Urine Total Protein Fluid Total Protein Vancomycin Trough Rheumatoid Factor Complement C4 Miscellaneous Test Crossmatch 01/26/17 01/26/17 01/26/17 04:20 04:20 11:23 WBC 13.1 H RBC 3.28 L Hgb 9.0 L Hct 26.9 L D MCV MCH 27 L MCHC RDW 17.2 H Plt Count Lymph % (Auto) [place] % (Auto) 9.0 H Lymph # [place] # 1.2 H Baso # Seg Neutrophils % 73.1 H Seg Neuts % (Manual) Lymphocytes % (Manual) Monocytes % (Manual) Eosinophils % (Manual) Basophils % (Manual) Nucleated RBC % Seg Neutrophils # 9.6 H Seg Neutrophils # Man Lymphocytes # (Manual) Monocytes # (Manual) Eosinophils # (Manual) Basophils # (Manual) PT INR Fibrinogen dRVVT Confirm Interp Factor V Activity POC ABG pH POC ABG pCO2 POC ABG pO2 ABG pO2 ABG HCO3 ABG Base Excess ABG Hemoglobin Oxyhemoglobin Sodium Potassium Chloride Carbon Dioxide BUN 51 H Creatinine Glucose 117 H POC Glucose 125 H Lactic Acid Calcium Phosphorus Magnesium Direct Bilirubin AST ALT Alkaline Phosphatase Lactate Dehydrogenase Troponin T C-Reactive Protein Total Protein Albumin Prealbumin Triglycerides Cholesterol LDL Cholesterol Direct HDL Cholesterol PTH Intact Urine pH Urine WBC (Auto) Urine Creatinine Urine Total Protein Fluid Total Protein Vancomycin Trough Rheumatoid Factor Complement C4 Miscellaneous Test Crossmatch 01/26/17 01/27/17 01/27/17 17:11 00:30 04:00 WBC RBC Hgb Hct MCV MCH MCHC RDW Plt Count Lymph % (Auto) [place] % (Auto) Lymph # [place] # Baso # Seg Neutrophils % Seg Neuts % (Manual) Lymphocytes % (Manual) Monocytes % (Manual) Eosinophils % (Manual) Basophils % (Manual) Nucleated RBC % Seg Neutrophils # Seg Neutrophils # Man Lymphocytes # (Manual) Monocytes # (Manual) Eosinophils # (Manual) Basophils # (Manual) PT INR Fibrinogen dRVVT Confirm Interp Factor V Activity POC ABG pH POC ABG pCO2 POC ABG pO2 ABG pO2 ABG HCO3 ABG Base Excess ABG Hemoglobin Oxyhemoglobin Sodium Potassium Chloride 97.7 L Carbon Dioxide 21 L BUN 79 H Creatinine 1.7 H D Glucose 112 H POC Glucose 133 H 135 H Lactic Acid Calcium Phosphorus 5.00 H D Magnesium Direct Bilirubin AST ALT Alkaline Phosphatase Lactate Dehydrogenase Troponin T C-Reactive Protein Total Protein Albumin Prealbumin Triglycerides Cholesterol LDL Cholesterol Direct HDL Cholesterol PTH Intact Urine pH Urine WBC (Auto) Urine Creatinine Urine Total Protein Fluid Total Protein Vancomycin Trough Rheumatoid Factor Complement C4 Miscellaneous Test Crossmatch 01/27/17 01/27/17 01/27/17 05:12 12:18 17:25 WBC RBC Hgb Hct MCV MCH MCHC RDW Plt Count Lymph % (Auto) [place] % (Auto) Lymph # [place] # Baso # Seg Neutrophils % Seg Neuts % (Manual) Lymphocytes % (Manual) Monocytes % (Manual) Eosinophils % (Manual) Basophils % (Manual) Nucleated RBC % Seg Neutrophils # Seg Neutrophils # Man Lymphocytes # (Manual) Monocytes # (Manual) Eosinophils # (Manual) Basophils # (Manual) PT INR Fibrinogen dRVVT Confirm Interp Factor V Activity POC ABG pH POC ABG pCO2 POC ABG pO2 ABG pO2 ABG HCO3 ABG Base Excess ABG Hemoglobin Oxyhemoglobin Sodium Potassium Chloride Carbon Dioxide BUN Creatinine Glucose POC Glucose 116 H 153 H 152 H Lactic Acid Calcium Phosphorus Magnesium Direct Bilirubin AST ALT Alkaline Phosphatase Lactate Dehydrogenase Troponin T C-Reactive Protein Total Protein Albumin Prealbumin Triglycerides Cholesterol LDL Cholesterol Direct HDL Cholesterol PTH Intact Urine pH Urine WBC (Auto) Urine Creatinine Urine Total Protein Fluid Total Protein Vancomycin Trough Rheumatoid Factor Complement C4 Miscellaneous Test Crossmatch 01/27/17 01/28/17 01/28/17 23:42 04:00 04:00 WBC 14.4 H RBC 2.82 L Hgb 7.4 L Hct 23.5 L MCV MCH 26 L MCHC RDW 17.6 H Plt Count Lymph % (Auto) 10.2 L [place] % (Auto) 11.0 H Lymph # [place] # 1.6 H Baso # Seg Neutrophils % 78.0 H Seg Neuts % (Manual) Lymphocytes % (Manual) Monocytes % (Manual) Eosinophils % (Manual) Basophils % (Manual) Nucleated RBC % Seg Neutrophils # 11.3 H Seg Neutrophils # Man Lymphocytes # (Manual) Monocytes # (Manual) Eosinophils # (Manual) Basophils # (Manual) PT INR Fibrinogen dRVVT Confirm Interp Factor V Activity POC ABG pH POC ABG pCO2 POC ABG pO2 ABG pO2 ABG HCO3 ABG Base Excess ABG Hemoglobin Oxyhemoglobin Sodium Potassium Chloride Carbon Dioxide BUN 55 H Creatinine 1.3 H Glucose 114 H POC Glucose 121 H Lactic Acid Calcium Phosphorus Magnesium Direct Bilirubin AST ALT Alkaline Phosphatase Lactate Dehydrogenase Troponin T C-Reactive Protein Total Protein Albumin 1.4 L Prealbumin Triglycerides Cholesterol LDL Cholesterol Direct HDL Cholesterol PTH Intact Urine pH Urine WBC (Auto) Urine Creatinine Urine Total Protein Fluid Total Protein Vancomycin Trough Rheumatoid Factor Complement C4 Miscellaneous Test Crossmatch 01/28/17 01/28/17 01/29/17 04:59 12:30 00:02 WBC RBC Hgb Hct MCV MCH MCHC RDW Plt Count Lymph % (Auto) [place] % (Auto) Lymph # [place] # Baso # Seg Neutrophils % Seg Neuts % (Manual) Lymphocytes % (Manual) Monocytes % (Manual) Eosinophils % (Manual) Basophils % (Manual) Nucleated RBC % Seg Neutrophils # Seg Neutrophils # Man Lymphocytes # (Manual) Monocytes # (Manual) Eosinophils # (Manual) Basophils # (Manual) PT INR Fibrinogen dRVVT Confirm Interp Factor V Activity POC ABG pH POC ABG pCO2 POC ABG pO2 ABG pO2 ABG HCO3 ABG Base Excess ABG Hemoglobin Oxyhemoglobin Sodium Potassium Chloride Carbon Dioxide BUN Creatinine Glucose POC Glucose 126 H 119 H 138 H Lactic Acid Calcium Phosphorus Magnesium Direct Bilirubin AST ALT Alkaline Phosphatase Lactate Dehydrogenase Troponin T C-Reactive Protein Total Protein Albumin Prealbumin Triglycerides Cholesterol LDL Cholesterol Direct HDL Cholesterol PTH Intact Urine pH Urine WBC (Auto) Urine Creatinine Urine Total Protein Fluid Total Protein Vancomycin Trough Rheumatoid Factor Complement C4 Miscellaneous Test Crossmatch 01/29/17 01/29/17 01/29/17 04:58 06:15 11:35 WBC RBC Hgb Hct MCV MCH MCHC RDW Plt Count Lymph % (Auto) [place] % (Auto) Lymph # [place] # Baso # Seg Neutrophils % Seg Neuts % (Manual) Lymphocytes % (Manual) Monocytes % (Manual) Eosinophils % (Manual) Basophils % (Manual) Nucleated RBC % Seg Neutrophils # Seg Neutrophils # Man Lymphocytes # (Manual) Monocytes # (Manual) Eosinophils # (Manual) Basophils # (Manual) PT INR Fibrinogen dRVVT Confirm Interp Factor V Activity POC ABG pH POC ABG pCO2 POC ABG pO2 ABG pO2 ABG HCO3 ABG Base Excess ABG Hemoglobin Oxyhemoglobin Sodium Potassium Chloride Carbon Dioxide BUN 85 H Creatinine 1.7 H Glucose 105 H POC Glucose 114 H 110 H Lactic Acid Calcium Phosphorus Magnesium 2.40 H Direct Bilirubin AST ALT Alkaline Phosphatase Lactate Dehydrogenase Troponin T C-Reactive Protein Total Protein Albumin Prealbumin Triglycerides Cholesterol LDL Cholesterol Direct HDL Cholesterol PTH Intact Urine pH Urine WBC (Auto) Urine Creatinine Urine Total Protein Fluid Total Protein Vancomycin Trough Rheumatoid Factor Complement C4 Miscellaneous Test Crossmatch 01/29/17 01/29/17 01/30/17 18:24 23:41 05:12 WBC RBC Hgb Hct MCV MCH MCHC RDW Plt Count Lymph % (Auto) [place] % (Auto) Lymph # [place] # Baso # Seg Neutrophils % Seg Neuts % (Manual) Lymphocytes % (Manual) Monocytes % (Manual) Eosinophils % (Manual) Basophils % (Manual) Nucleated RBC % Seg Neutrophils # Seg Neutrophils # Man Lymphocytes # (Manual) Monocytes # (Manual) Eosinophils # (Manual) Basophils # (Manual) PT INR Fibrinogen dRVVT Confirm Interp Factor V Activity POC ABG pH POC ABG pCO2 POC ABG pO2 ABG pO2 ABG HCO3 ABG Base Excess ABG Hemoglobin Oxyhemoglobin Sodium Potassium Chloride Carbon Dioxide BUN Creatinine Glucose POC Glucose 109 H 134 H 109 H Lactic Acid Calcium Phosphorus Magnesium Direct Bilirubin AST ALT Alkaline Phosphatase Lactate Dehydrogenase Troponin T C-Reactive Protein Total Protein Albumin Prealbumin Triglycerides Cholesterol LDL Cholesterol Direct HDL Cholesterol PTH Intact Urine pH Urine WBC (Auto) Urine Creatinine Urine Total Protein Fluid Total Protein Vancomycin Trough Rheumatoid Factor Complement C4 Miscellaneous Test Crossmatch 01/30/17 01/30/17 01/30/17 11:26 17:43 23:39 WBC RBC Hgb Hct MCV MCH MCHC RDW Plt Count Lymph % (Auto) [place] % (Auto) Lymph # [place] # Baso # Seg Neutrophils % Seg Neuts % (Manual) Lymphocytes % (Manual) Monocytes % (Manual) Eosinophils % (Manual) Basophils % (Manual) Nucleated RBC % Seg Neutrophils # Seg Neutrophils # Man Lymphocytes # (Manual) Monocytes # (Manual) Eosinophils # (Manual) Basophils # (Manual) PT INR Fibrinogen dRVVT Confirm Interp Factor V Activity POC ABG pH POC ABG pCO2 POC ABG pO2 ABG pO2 ABG HCO3 ABG Base Excess ABG Hemoglobin Oxyhemoglobin Sodium Potassium Chloride Carbon Dioxide BUN Creatinine Glucose POC Glucose 135 H 143 H 122 H Lactic Acid Calcium Phosphorus Magnesium Direct Bilirubin AST ALT Alkaline Phosphatase Lactate Dehydrogenase Troponin T C-Reactive Protein Total Protein Albumin Prealbumin Triglycerides Cholesterol LDL Cholesterol Direct HDL Cholesterol PTH Intact Urine pH Urine WBC (Auto) Urine Creatinine Urine Total Protein Fluid Total Protein Vancomycin Trough Rheumatoid Factor Complement C4 Miscellaneous Test Crossmatch 01/31/17 01/31/17 01/31/17 04:00 05:40 11:12 WBC RBC Hgb Hct MCV MCH MCHC RDW Plt Count Lymph % (Auto) [place] % (Auto) Lymph # [place] # Baso # Seg Neutrophils % Seg Neuts % (Manual) Lymphocytes % (Manual) Monocytes % (Manual) Eosinophils % (Manual) Basophils % (Manual) Nucleated RBC % Seg Neutrophils # Seg Neutrophils # Man Lymphocytes # (Manual) Monocytes # (Manual) Eosinophils # (Manual) Basophils # (Manual) PT INR Fibrinogen dRVVT Confirm Interp Factor V Activity POC ABG pH POC ABG pCO2 POC ABG pO2 ABG pO2 ABG HCO3 ABG Base Excess ABG Hemoglobin Oxyhemoglobin Sodium Potassium Chloride Carbon Dioxide BUN 78 H Creatinine 1.5 H Glucose 108 H POC Glucose 123 H Lactic Acid Calcium Phosphorus Magnesium Direct Bilirubin AST ALT Alkaline Phosphatase Lactate Dehydrogenase Troponin T C-Reactive Protein 8.10 H Total Protein Albumin Prealbumin Triglycerides Cholesterol LDL Cholesterol Direct HDL Cholesterol PTH Intact Urine pH Urine WBC (Auto) Urine Creatinine Urine Total Protein Fluid Total Protein Vancomycin Trough Rheumatoid Factor Complement C4 Miscellaneous Test Crossmatch 01/31/17 01/31/17 01/31/17 11:16 17:45 17:50 WBC RBC Hgb Hct MCV MCH MCHC RDW Plt Count Lymph % (Auto) [place] % (Auto) Lymph # [place] # Baso # Seg Neutrophils % Seg Neuts % (Manual) Lymphocytes % (Manual) Monocytes % (Manual) Eosinophils % (Manual) Basophils % (Manual) Nucleated RBC % Seg Neutrophils # Seg Neutrophils # Man Lymphocytes # (Manual) Monocytes # (Manual) Eosinophils # (Manual) Basophils # (Manual) PT INR Fibrinogen dRVVT Confirm Interp Factor V Activity POC ABG pH POC ABG pCO2 POC ABG pO2 ABG pO2 ABG HCO3 ABG Base Excess ABG Hemoglobin Oxyhemoglobin Sodium Potassium Chloride Carbon Dioxide BUN Creatinine Glucose POC Glucose 119 H 111 H Lactic Acid Calcium Phosphorus Magnesium Direct Bilirubin AST ALT Alkaline Phosphatase Lactate Dehydrogenase Troponin T C-Reactive Protein Total Protein Albumin Prealbumin Triglycerides Cholesterol LDL Cholesterol Direct HDL Cholesterol PTH Intact 6.76 L Urine pH Urine WBC (Auto) Urine Creatinine Urine Total Protein Fluid Total Protein Vancomycin Trough Rheumatoid Factor Complement C4 Miscellaneous Test Crossmatch 01/31/17 02/01/17 02/01/17 23:19 05:42 09:24 WBC RBC Hgb Hct MCV MCH MCHC RDW Plt Count Lymph % (Auto) [place] % (Auto) Lymph # [place] # Baso # Seg Neutrophils % Seg Neuts % (Manual) Lymphocytes % (Manual) Monocytes % (Manual) Eosinophils % (Manual) Basophils % (Manual) Nucleated RBC % Seg Neutrophils # Seg Neutrophils # Man Lymphocytes # (Manual) Monocytes # (Manual) Eosinophils # (Manual) Basophils # (Manual) PT INR Fibrinogen dRVVT Confirm Interp Factor V Activity POC ABG pH POC ABG pCO2 POC ABG pO2 ABG pO2 ABG HCO3 ABG Base Excess ABG Hemoglobin Oxyhemoglobin Sodium Potassium Chloride Carbon Dioxide BUN Creatinine Glucose POC Glucose 118 H 122 H Lactic Acid Calcium Phosphorus Magnesium 2.60 H Direct Bilirubin AST ALT Alkaline Phosphatase Lactate Dehydrogenase Troponin T C-Reactive Protein Total Protein Albumin Prealbumin Triglycerides Cholesterol LDL Cholesterol Direct HDL Cholesterol PTH Intact Urine pH Urine WBC (Auto) Urine Creatinine Urine Total Protein Fluid Total Protein Vancomycin Trough Rheumatoid Factor Complement C4 Miscellaneous Test Crossmatch 02/01/17 02/01/17 02/02/17 09:24 12:15 07:40 WBC RBC Hgb Hct MCV MCH MCHC RDW Plt Count Lymph % (Auto) [place] % (Auto) Lymph # [place] # Baso # Seg Neutrophils % Seg Neuts % (Manual) Lymphocytes % (Manual) Monocytes % (Manual) Eosinophils % (Manual) Basophils % (Manual) Nucleated RBC % Seg Neutrophils # Seg Neutrophils # Man Lymphocytes # (Manual) Monocytes # (Manual) Eosinophils # (Manual) Basophils # (Manual) PT INR Fibrinogen dRVVT Confirm Interp Factor V Activity POC ABG pH POC ABG pCO2 POC ABG pO2 ABG pO2 ABG HCO3 ABG Base Excess ABG Hemoglobin Oxyhemoglobin Sodium Potassium Chloride Carbon Dioxide BUN 102 H 72 H Creatinine 1.9 H 1.5 H Glucose 120 H POC Glucose 156 H Lactic Acid Calcium Phosphorus Magnesium Direct Bilirubin AST ALT Alkaline Phosphatase Lactate Dehydrogenase Troponin T C-Reactive Protein Total Protein Albumin Prealbumin Triglycerides Cholesterol LDL Cholesterol Direct HDL Cholesterol PTH Intact Urine pH Urine WBC (Auto) Urine Creatinine Urine Total Protein Fluid Total Protein Vancomycin Trough Rheumatoid Factor Complement C4 Miscellaneous Test Crossmatch 02/02/17 02/02/17 02/03/17 10:16 12:11 00:08 WBC 12.0 H RBC 3.08 L Hgb 8.3 L Hct 25.6 L MCV MCH 27 L MCHC RDW 18.2 H Plt Count Lymph % (Auto) [place] % (Auto) Lymph # [place] # Baso # Seg Neutrophils % 78.4 H Seg Neuts % (Manual) Lymphocytes % (Manual) Monocytes % (Manual) Eosinophils % (Manual) Basophils % (Manual) Nucleated RBC % Seg Neutrophils # 9.4 H Seg Neutrophils # Man Lymphocytes # (Manual) Monocytes # (Manual) Eosinophils # (Manual) Basophils # (Manual) PT INR Fibrinogen dRVVT Confirm Interp Factor V Activity POC ABG pH POC ABG pCO2 POC ABG pO2 ABG pO2 ABG HCO3 ABG Base Excess ABG Hemoglobin Oxyhemoglobin Sodium Potassium Chloride Carbon Dioxide BUN Creatinine Glucose POC Glucose 110 H 120 H Lactic Acid Calcium Phosphorus Magnesium Direct Bilirubin AST ALT Alkaline Phosphatase Lactate Dehydrogenase Troponin T C-Reactive Protein Total Protein Albumin Prealbumin Triglycerides Cholesterol LDL Cholesterol Direct HDL Cholesterol PTH Intact Urine pH Urine WBC (Auto) Urine Creatinine Urine Total Protein Fluid Total Protein Vancomycin Trough Rheumatoid Factor Complement C4 Miscellaneous Test Crossmatch 02/03/17 02/03/17 02/03/17 05:41 07:38 11:31 WBC RBC Hgb Hct MCV MCH MCHC RDW Plt Count Lymph % (Auto) [place] % (Auto) Lymph # [place] # Baso # Seg Neutrophils % Seg Neuts % (Manual) Lymphocytes % (Manual) Monocytes % (Manual) Eosinophils % (Manual) Basophils % (Manual) Nucleated RBC % Seg Neutrophils # Seg Neutrophils # Man Lymphocytes # (Manual) Monocytes # (Manual) Eosinophils # (Manual) Basophils # (Manual) PT INR Fibrinogen dRVVT Confirm Interp Factor V Activity POC ABG pH POC ABG pCO2 POC ABG pO2 ABG pO2 ABG HCO3 ABG Base Excess ABG Hemoglobin Oxyhemoglobin Sodium 134 L Potassium Chloride Carbon Dioxide 21 L BUN 91 H Creatinine 1.9 H Glucose 110 H POC Glucose 119 H 119 H Lactic Acid Calcium 10.3 H Phosphorus Magnesium Direct Bilirubin AST ALT Alkaline Phosphatase Lactate Dehydrogenase Troponin T C-Reactive Protein Total Protein Albumin Prealbumin Triglycerides Cholesterol LDL Cholesterol Direct HDL Cholesterol PTH Intact Urine pH Urine WBC (Auto) Urine Creatinine Urine Total Protein Fluid Total Protein Vancomycin Trough Rheumatoid Factor Complement C4 Miscellaneous Test Crossmatch 02/03/17 02/04/17 02/04/17 17:13 04:00 05:18 WBC RBC Hgb Hct MCV MCH MCHC RDW Plt Count Lymph % (Auto) [place] % (Auto) Lymph # [place] # Baso # Seg Neutrophils % Seg Neuts % (Manual) Lymphocytes % (Manual) Monocytes % (Manual) Eosinophils % (Manual) Basophils % (Manual) Nucleated RBC % Seg Neutrophils # Seg Neutrophils # Man Lymphocytes # (Manual) Monocytes # (Manual) Eosinophils # (Manual) Basophils # (Manual) PT INR Fibrinogen dRVVT Confirm Interp Factor V Activity POC ABG pH POC ABG pCO2 POC ABG pO2 ABG pO2 ABG HCO3 ABG Base Excess ABG Hemoglobin Oxyhemoglobin Sodium 136 L Potassium Chloride Carbon Dioxide BUN 58 H Creatinine 1.3 H Glucose 103 H POC Glucose 133 H 132 H Lactic Acid Calcium Phosphorus 2.00 L D Magnesium 1.60 L Direct Bilirubin AST ALT Alkaline Phosphatase Lactate Dehydrogenase Troponin T C-Reactive Protein Total Protein Albumin Prealbumin Triglycerides Cholesterol LDL Cholesterol Direct HDL Cholesterol PTH Intact Urine pH Urine WBC (Auto) Urine Creatinine Urine Total Protein Fluid Total Protein Vancomycin Trough Rheumatoid Factor Complement C4 Miscellaneous Test Crossmatch 02/05/17 02/05/17 02/05/17 00:01 04:00 06:42 WBC RBC Hgb Hct MCV MCH MCHC RDW Plt Count Lymph % (Auto) [place] % (Auto) Lymph # [place] # Baso # Seg Neutrophils % Seg Neuts % (Manual) Lymphocytes % (Manual) Monocytes % (Manual) Eosinophils % (Manual) Basophils % (Manual) Nucleated RBC % Seg Neutrophils # Seg Neutrophils # Man Lymphocytes # (Manual) Monocytes # (Manual) Eosinophils # (Manual) Basophils # (Manual) PT INR Fibrinogen dRVVT Confirm Interp Factor V Activity POC ABG pH POC ABG pCO2 POC ABG pO2 ABG pO2 ABG HCO3 ABG Base Excess ABG Hemoglobin Oxyhemoglobin Sodium Potassium Chloride Carbon Dioxide BUN 83 H Creatinine 1.8 H Glucose POC Glucose 119 H 110 H Lactic Acid Calcium 10.7 H Phosphorus Magnesium Direct Bilirubin AST ALT Alkaline Phosphatase Lactate Dehydrogenase Troponin T C-Reactive Protein Total Protein Albumin Prealbumin Triglycerides Cholesterol LDL Cholesterol Direct HDL Cholesterol PTH Intact Urine pH Urine WBC (Auto) Urine Creatinine Urine Total Protein Fluid Total Protein Vancomycin Trough Rheumatoid Factor Complement C4 Miscellaneous Test Crossmatch 02/05/17 02/05/17 02/05/17 09:59 11:47 23:44 WBC RBC 2.69 L Hgb 7.2 L Hct 22.5 L MCV MCH 27 L MCHC RDW 18.6 H Plt Count Lymph % (Auto) [place] % (Auto) 9.2 H Lymph # [place] # 0.9 H Baso # Seg Neutrophils % Seg Neuts % (Manual) Lymphocytes % (Manual) Monocytes % (Manual) Eosinophils % (Manual) Basophils % (Manual) Nucleated RBC % Seg Neutrophils # Seg Neutrophils # Man Lymphocytes # (Manual) Monocytes # (Manual) Eosinophils # (Manual) Basophils # (Manual) PT INR Fibrinogen dRVVT Confirm Interp Factor V Activity POC ABG pH POC ABG pCO2 POC ABG pO2 ABG pO2 ABG HCO3 ABG Base Excess ABG Hemoglobin Oxyhemoglobin Sodium Potassium Chloride Carbon Dioxide BUN Creatinine Glucose POC Glucose 130 H 123 H Lactic Acid Calcium Phosphorus Magnesium Direct Bilirubin AST ALT Alkaline Phosphatase Lactate Dehydrogenase Troponin T C-Reactive Protein Total Protein Albumin Prealbumin Triglycerides Cholesterol LDL Cholesterol Direct HDL Cholesterol PTH Intact Urine pH Urine WBC (Auto) Urine Creatinine Urine Total Protein Fluid Total Protein Vancomycin Trough Rheumatoid Factor Complement C4 Miscellaneous Test Crossmatch 02/06/17 02/06/17 04:45 05:58 WBC RBC Hgb Hct MCV MCH MCHC RDW Plt Count Lymph % (Auto) [place] % (Auto) Lymph # [place] # Baso # Seg Neutrophils % Seg Neuts % (Manual) Lymphocytes % (Manual) Monocytes % (Manual) Eosinophils % (Manual) Basophils % (Manual) Nucleated RBC % Seg Neutrophils # Seg Neutrophils # Man Lymphocytes # (Manual) Monocytes # (Manual) Eosinophils # (Manual) Basophils # (Manual) PT INR Fibrinogen dRVVT Confirm Interp Factor V Activity POC ABG pH POC ABG pCO2 POC ABG pO2 ABG pO2 ABG HCO3 ABG Base Excess ABG Hemoglobin Oxyhemoglobin Sodium Potassium Chloride Carbon Dioxide BUN 101 H Creatinine 2.0 H Glucose 102 H POC Glucose 115 H Lactic Acid Calcium 10.6 H Phosphorus Magnesium Direct Bilirubin AST ALT Alkaline Phosphatase 199 H Lactate Dehydrogenase Troponin T C-Reactive Protein Total Protein Albumin 1.4 L Prealbumin Triglycerides Cholesterol LDL Cholesterol Direct HDL Cholesterol PTH Intact Urine pH Urine WBC (Auto) Urine Creatinine Urine Total Protein Fluid Total Protein Vancomycin Trough Rheumatoid Factor Complement C4 Miscellaneous Test Crossmatch CT scan - chest: image reviewed (Debris in esophagus; right pleural effusion appears to be developing a rind around it; no pneumothorax) Allied health notes reviewed: RT (Has been on PS 15/5, no desaturations today)
--- NOTE | 2017-02-06 10:29 | Event Note ---
Date: 02/06/[address] a chest tube in the patient today. Despite CT demonstrating appropriate positioning of the needle in multiple locations within the pleural fluid, only 3-5 ML's at a time was able to be aspirated. The patient's pleural effusions are likely multiply septated. Inserting a wire through the needle only coiled up the wire within an individual septation as opposed to free- floating within the pleural space. Therefore, the chest tube was not placed. If there is concern for these pleural effusions, consultation with a cardiothoracic surgeon for decortication may be beneficial.
[2017-02-06] MEDS: HEPARIN SUB-Q SCH (10:43)
[2017-02-06] MEDS: PROTONIX FEEDTUBE SCH (10:44)
[2017-02-06] MEDS: ROBINUL PO SCH (10:44)
--- NOTE | 2017-02-06 10:55 | Progress Note ---
Assessment and Plan Assessment: 1) Recurrent SIRS: unclear source, fever better. 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 gastric perf (PEG placed on 09/20) +/- TPN +/- central lines -TTE 10/07 no vegetations -PICC exchanged on 10/03 -fully treated with micafungin for 14 days last day 10/13 4) History CA-UTI s/p gutierrez exchanged 5) Diarrhea - ? etiology ? antibiotic-induced, not better. 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 from GI bleed 13) Recent abdominal wall abscess at surgical site-treated 14 ) Recent Enterococcal bacteremia from PICC line infection. 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 -worsening -S/P debridement at bedside - new wound cx 01/24 +Proteus and MDR Pseudomonas (resistant to meropenem and cefepime/sensitive to ceftazidime) -CRP=24 --> 8 16) Presumed VAP: sputum + MDR Pseudomonas / Proteus 17) Resp failure - worsening Plan: -continue ceftazidime IV total 3 weeks until 02/20/17-was on meropenem -continue wound care -to have thoracentesis today Thank you Dr Means or your consultation, will follow up with you. Pauline Carias MD Infectious Diseases Specialist [facility] ([facility] M [phone] O [phone] Subjective Date of service: 02/06/17 Principal diagnosis: Acute resp failure on MVS; S/P Acute CVA; Acute Encephalopathy; JUANITA Interval history: Interval history: Alert, no fever, back on the vent via trach + TPN, tachycardic during weekend Microbiology: Blood cultures: 09/13 neg 8/ Silvia albicans 09/25 Silvia 09/29 neg 10/07 neg 11/05 neg 11/07 ngtd 10 E faecalis 1 of 4 bottles 11/25 neg / neg 01/09 ngtd Urine cultures: 09/10 neg 09/13 neg 8/ 10-100K mixed species 10/07 neg 11/05 VRE 11/07 mixed bacteria Respiratory cultures: 09/07 neg 09/13 neg 09/23 neg 11/07 MDR Pseudomonas 10 tracheal + VRE 01/09 Pseudomonas x 3 and Proteues Pleural effusion: ngtd Wound cultures: 10/17 abd wall wound purulence + Pseudomonas MDR 01/24 GNRs Stool cultures: cath tip 11/07 + [employer] Current Antimicrobials: ceftaz 01/30 Previous Antimicrobials: Zosyn 10/07 Vancomycin PO 10/01 Metronidazole 09/25 Micafungin 09/27-10/13 Meropenem 10/10 Vanco 10/17 zosyn 10/21 Cefepime 11/10 vancomyin 11/07 fluconazole 10/19 cefepime 10/29levaquin 11/05 vanco 11/23 meropenem 01/08 Objective - Exam Narrative Exam: General appearance: somnolent non communicative, on the vent via trach in mild resp distress, no following commands Eyes: anicteric sclera, moist conjunctivae; PERRLA HENT: Atraumatic; oropharynx limited; Normal external ears. +NGT with greenish secretion Neck: +trach in place; supple, no thyromegaly or lymphadenopathy Lungs: brit coarse BS CV: rrr Abdomen: Soft, non-tender, +old PEG site no drainage. +iliostomy. Right sided Surgical site x 2 with ostomy bag draining small amount yellowish secretion Extremities: +peripheral edema Skin: sacral area wounds - per wound care STAGE 4 PRESSURE INJURY TO SACRAL MEASURES 7.5X6X2.5, WITH UNDERMINING FROM @9-1 OCLOCK-2.8CM-ULCER CLEANED WITH WOUND VAMP CREASER-ULCER NEW - Sacrum wound measuring 9x11cm. Necrotic tissue noted on the wound edges and in the wound bed Psych: somnolent . Neuro: alert non verbal on the vent. Lines: PICC / gutierrez - Constitutional Vitals: Vital Signs Temp Pulse Resp BP Pulse Ox 98.6 F 94 H 26 H 156/83 100 02/06/17 08:00 02/06/17 10:20 02/06/17 10:20 02/06/17 10:20 02/06/17 10:20 Temperature -Last 24 Hours Temperature 98.6 F Temperature 99.1 F Temperature 98.8 F Temperature 98.8 F - Labs CBC & Chem 7: 02/05/17 09:59 02/06/17 04:45 Labs: Abnormal lab results 02/05/17 02/05/17 02/06/17 Range/Units 11:47 23:44 04:45 BUN 101 H (7-17) mg/dL Creatinine 2.0 H (0.7-1.2) mg/dL Glucose 102 H (65-100) mg/dL POC Glucose 130 H 123 H (70-105) Calcium 10.6 H (8.4-10.2) mg/dL Alkaline Phosphatase 199 H (35-129) units/L Albumin 1.4 L (3.9-5) g/dL 02/06/17 Range/Units 05:58 BUN (7-17) mg/dL Creatinine (0.7-1.2) mg/dL Glucose (65-100) mg/dL POC Glucose 115 H (70-105) Calcium (8.4-10.2) mg/dL Alkaline Phosphatase (35-129) units/L Albumin (3.9-5) g/dL
--- NOTE | 2017-02-06 11:23 | Cat Scan Report ---
EXAM: CT-GUIDED THORACENTESIS CLINICAL INDICATION: PLEURAL EFFUSIONS DATE: 02/06/2017 PROCEDURE: Following extubation of the risks, benefits and alternatives; written informed consent was obtained from the patient's next of kin. The patient was brought to the CT suite and placed in supine position on the examination table. Initial parking meter installer images of the chest demonstrated minimal pleural effusions at both lung bases. The patient's right chest wall was prepped and draped in usual sterile fashion following selection of an appropriate access site. 1% lidocaine was used for anesthesia. Using intermittent CT guidance, a 10 cm 18-gauge trocar needle was advanced into the right pleural space. Position was confirmed with repeat CT imaging. A total of 5 mL's of clear blood-tinged fluid was then aspirated. A 0.035 guidewire was advanced through the needle however, would not advance into the pleural space more distally. Additional imaging demonstrated that the wire was appropriately within the pleural space however within the septation. The wire was removed and the needle repositioned to a different area of the pleural fluid and an additional 3 mL's of clear blood-tinged fluid was aspirated. The wire was again reinserted with CT imaging demonstrating appropriate positioning however, would not fill the pleural space only the septation. At this point, the guidewire was removed. The needle was removed and hemostasis achieved using manual compression and a sterile dressing applied. Post thoracentesis imaging demonstrated no pneumothorax. The patient tolerated the procedure well. There were no immediate post procedure complications. Conscious sedation was not utilized secondary to patient's altered mental status. Continuous cardiopulmonary monitoring was utilized. IMPRESSION: 1) CT-guided thoracentesis with a sample of fluid sent for laboratory analysis. 2) The patient's pleural effusions are multiseptated and cannot be drained with a drainage catheter. If there is concern for drainage of these fluid collections, cardiothoracic surgery should be consulted for decortication.
[2017-02-06] MEDS: DURAGESIC TD SCH (13:01)
[2017-02-06] MEDS: TRANSDERM-SCOP TD SCH (13:02)
[2017-02-06] MEDS: HEPARIN IV PRN (14:51)
--- NOTE | 2017-02-06 14:53 | Progress Note ---
Assessment and Plan Assessment and plan: -- Massive stroke with mass effect, vegetative stage; supportive care -- Acute hypoxic respiratory failure, s/p tracheostomy vent dependent -- Paroxysmal atrial fibrillation with RVR, failed cardioversion, beta blockers , not a candidate for anticoagulation -- Multiple episodes of sepsis with septic shock during her hospitalization s/p aspiration pneumonia/peritonitis from gastric perforation/UTI/candidemia/ decubitus ulcer s/p sacral decubitus debridement, Right pleural effusion - scheduled for chest ultrasound for possible thoracentesis Currently on meropenem with stop date 02/04 --Pleural effusion ; IR tried to place chest tube , however couldn't remove only 3-5 mL of purulent fluid , recommend CT surgeon Consultation if needed . -- Acute renal failure/ ATN, improved significantly, creatinine near normal limits -- Diabetes, Accu-Cheks and SSI -- Anemia, Multifactorial, status post multiple PRBC transfusions -- Thrombocytopenia/secondary to sepsis -- Electrolyte abnormalities, correct as needed -- Severe protein calorie malnutrition, TPN -- Encephalopathy, Toxic metabolic initially, underlying conditions treated -- full code, poor prognosis Family aware of patient's condition and poor prognosis Discharge planning; possible placement, social issues History Interval history: Patient seen and examined medical records reviewed Clinically no change IR attempted to place chest tube, could aspirate only 3-5 mL at a time at different locations, recommend cardiothoracic surgeon evaluation if needed Vital signs reviewed Hospitalist Physical - Constitutional Vitals: Temp Pulse Resp BP Pulse Ox 98.7 F 122 H 30 H 91/63 99 02/06/17 12:00 02/06/17 14:15 02/06/17 14:00 02/06/17 14:15 02/06/17 14:00 General appearance: Present: no acute distress, well-nourished, other ( tracheostomy on vent) - EENT Eyes: Present: PERRL, EOM intact - Neck Neck: Present: supple, normal ROM - Respiratory Respiratory effort: normal Respiratory: bilateral: diminished, rhonchi, negative: rales, wheezing - Cardiovascular Rhythm: regular Heart Sounds: Present: S1 & S2 - Extremities Extremities: no ischemia Extremity abnormal: edema - Abdominal General gastrointestinal: soft, non-tender, non-distended, normal bowel sounds, other (PEG tube in place) - Integumentary Integumentary: Present: clear, warm - Psychiatric Psychiatric: appropriate mood/affect, cooperative - Neurologic Neurologic: CNII-XII intact, moves all extremities Results - Labs CBC & Chem 7: 02/05/17 09:59 02/06/17 04:45 Labs: Laboratory Last Values WBC 10.2 K/mm3 (4.5-11.0) 02/05/17 09:59 RBC 2.69 M/mm3 (3.65-5.03) L 02/05/17 09:59 Hgb 7.2 gm/dl (10.1-14.3) L 02/05/17 09:59 Hct 22.5 % (30.3-42.9) L 02/05/17 09:59 MCV 84 fl (79-97) 02/05/17 09:59 MCH 27 pg (28-32) L 02/05/17 09:59 MCHC 32 % (30-34) 02/05/17 09:59 RDW 18.6 % (13.2-15.2) H 02/05/17 09:59 Plt Count 272 K/mm3 (140-440) 02/05/17 09:59 Lymph % (Auto) 19.3 % (13.4-35.0) 02/05/17 09:59 Leon % (Auto) 9.2 % (0.0-7.3) H 02/05/17 09:59 Eos % (Auto) 1.8 % (0.0-4.3) 02/05/17 09:59 Baso % (Auto) 0.5 % (0.0-1.8) 02/05/17 09:59 Lymph # 2.0 K/mm3 (1.2-5.4) 02/05/17 09:59 Leon # 0.9 K/mm3 (0.0-0.8) H 02/05/17 09:59 Eos # 0.2 K/mm3 (0.0-0.4) 02/05/17 09:59 Baso # 0.0 K/mm3 (0.0-0.1) 02/05/17 09:59 Add Manual Diff Complete 12/19/16 05:02 Total Counted 100 12/19/16 05:02 Seg Neutrophils % 69.2 % (40.0-70.0) 02/05/17 09:59 Seg Neuts % (Manual) 64.0 % (40.0-70.0) 12/19/16 05:02 Band Neutrophils % 15.0 % 12/19/16 05:02 Lymphocytes % (Manual) 13.0 % (13.4-35.0) L 12/19/16 05:02 Reactive Lymphs % (Man) 0 % 12/19/16 05:02 Monocytes % (Manual) 7.0 % (0.0-7.3) 12/19/16 05:02 Eosinophils % (Manual) 0 % (0.0-4.3) 12/19/16 05:02 Basophils % (Manual) 1.0 % (0.0-1.8) 12/19/16 05:02 Metamyelocytes % 0 % 12/19/16 05:02 Myelocytes % 0 % 12/19/16 05:02 Promyelocytes % 0 % 12/19/16 05:02 Blast Cells % 0 % 12/19/16 05:02 Nucleated RBC % 1.0 % (0.0-0.9) H 12/19/16 05:02 Seg Neutrophils # 7.1 K/mm3 (1.8-7.7) 02/05/17 09:59 Seg Neutrophils # Man 12.9 K/mm3 (1.8-7.7) H 12/19/16 05:02 Band Neutrophils # 3.0 K/mm3 12/19/16 05:02 Lymphocytes # (Manual) 2.6 K/mm3 (1.2-5.4) 12/19/16 05:02 Abs React Lymphs (Man) 0.0 K/mm3 12/19/16 05:02 Monocytes # (Manual) 1.4 K/mm3 (0.0-0.8) H 12/19/16 05:02 Eosinophils # (Manual) 0.0 K/mm3 (0.0-0.4) 12/19/16 05:02 Basophils # (Manual) 0.2 K/mm3 (0.0-0.1) H 12/19/16 05:02 Metamyelocytes # 0.0 K/mm3 12/19/16 05:02 Myelocytes # 0.0 K/mm3 12/19/16 05:02 Promyelocytes # 0.0 K/mm3 12/19/16 05:02 Blast Cells # 0.0 K/mm3 12/19/16 05:02 Pathologist Review 09/13/16 04:00 WBC Morphology Not Reportable 12/19/16 05:02 Hypersegmented Neuts Not Reportable 12/19/16 05:02 Hyposegmented Neuts Not Reportable 12/19/16 05:02 Hypogranular Neuts Not Reportable 12/19/16 05:02 Smudge Cells Not Reportable 12/19/16 05:02 Toxic Granulation Not Reportable 12/19/16 05:02 Toxic Vacuolation Not Reportable 12/19/16 05:02 Dohle Bodies Not Reportable 12/19/16 05:02 Pelger-Huet Anomaly Not Reportable 12/19/16 05:02 Jasmina Rods Not Reportable 12/19/16 05:02 Platelet Estimate Consistent w auto 12/19/16 05:02 Clumped Platelets Not Reportable 12/19/16 05:02 Plt Clumps, EDTA Not Reportable 12/19/16 05:02 Large Platelets Not Reportable 12/19/16 05:02 Giant Platelets Not Reportable 12/19/16 05:02 Platelet Satelliting Not Reportable 12/19/16 05:02 Plt Morphology Comment Not Reportable 12/19/16 05:02 RBC Morphology Not Reportable 12/19/16 05:02 Dimorphic RBCs Not Reportable 12/19/16 05:02 Polychromasia Not Reportable 12/19/16 05:02 Hypochromasia Not Reportable 12/19/16 05:02 Poikilocytosis Not Reportable 12/19/16 05:02 Anisocytosis Not Reportable 12/19/16 05:02 Microcytosis Not Reportable 12/19/16 05:02 Macrocytosis Not Reportable 12/19/16 05:02 Spherocytes Not Reportable 12/19/16 05:02 Pappenheimer Bodies Not Reportable 12/19/16 05:02 Sickle Cells Not Reportable 12/19/16 05:02 Target Cells Few 12/19/16 05:02 Tear Drop Cells Not Reportable 12/19/16 05:02 Ovalocytes Not Reportable 12/19/16 05:02 Stomatocytes Rare 12/03/16 04:00 Helmet Cells Not Reportable 12/19/16 05:02 [place] Bodies Not Reportable 12/19/16 05:02 [place] Rings Not Reportable 12/19/16 05:02 Chuck Cells Not Reportable 12/19/16 05:02 Bite Cells Not Reportable 12/19/16 05:02 Crenated Cell Not Reportable 12/19/16 05:02 Elliptocytes Not Reportable 12/19/16 05:02 Acanthocytes (Spur) Not Reportable 12/19/16 05:02 Rouleaux Not Reportable 12/19/16 05:02 Hemoglobin C Crystals Not Reportable 12/19/16 05:02 Schistocytes Not Reportable 12/19/16 05:02 Malaria parasites Not Reportable 12/19/16 05:02 ESR > 140.0 mm/Hr (0-20) 09/08/16 11:48 Jun Bodies Not Reportable 12/19/16 05:02 Hem Pathologist Commnt No 12/19/16 05:02 PT 15.4 Sec. (12.2-14.9) H 01/13/17 15:50 INR 1.16 (0.87-1.13) H 01/13/17 15:50 APTT 33.0 Sec. (24.2-36.6) 10/09/16 03:45 Thrombin Time 16.8 Sec. (15.1-19.6) 09/03/16 00:10 Fibrinogen 750 mg/dl (211-480) H 09/08/16 11:48 Lupus Anticoagulant see below 09/12/16 09:59 LA PTT Baseline See scanned report 09/12/16 09:59 dRVVT Confirm Interp Positive (Negative) H 09/12/16 09:59 dRVVT Screen 50:50 See scanned report 09/12/16 09:59 dRVVT Mix Interpret See scanned report 09/12/16 09:59 Protein C Antigen 122 % (70-140) 09/08/16 15:35 Free Protein S 97 % normal (50-147) 09/08/16 15:35 Total Protein S 109 % (70-140) 09/08/16 15:35 Antithrombin III Ag 100 % (80-120) 09/08/16 15:35 Heparin Anti-Xa, Unfract Negative (Negative) 09/29/16 13:35 Factor V Activity 182 % (65-150) H 09/08/16 15:35 POC ABG pH 7.436 (7.35-7.45) 01/20/17 12:17 ABG pH 7.450 pH Units (7.350-7.450) 12/05/16 Unknown POC ABG pCO2 35.3 (35-45) 01/20/17 12: ABG pCO2 29.6 mm Hg 12/05/16 Unknown POC ABG pO2 70 (80-105) L 01/20/17 12: ABG pO2 75.2 mm Hg (80.0-90.0) L 12/05/16 Unknown POC ABG HCO3 23.8 01/20/17 12: ABG HCO3 20.1 mmol/L (20.0-26.0) 12/05/16 Unknown POC ABG Total CO2 25 01/20/17 12:17 POC ABG O2 Sat 94 01/20/17 12: ABG O2 Saturation 96.8 % (95.0-99.0) 12/05/16 Unknown ABG O2 Content 9.9 (0.0-44) 12/05/16 Unknown POC ABG Base Excess 0 01/20/17 12: ABG Base Excess -3.4 mmol/L (-2.0-3.0) L 12/05/16 Unknown ABG Hemoglobin 7.4 gm/dl (12.0-16.0) L 12/05/16 Unknown ABG Carboxyhemoglobin 1.8 % (0.0-5.0) 12/05/16 Unknown ABG Methemoglobin 0.6 % (0.0-1.5) 12/05/16 Unknown Oxyhemoglobin 94.5 % (95.0-99.0) L 12/05/16 Unknown FiO2 30 % 01/20/17 12:17 Sodium 141 mmol/L (137-145) 02/06/17 04:45 Potassium 3.8 mmol/L (3.6-5.0) 02/06/17 04:45 Chloride 103.9 mmol/L (98-107) 02/06/17 04:45 Carbon Dioxide 25 mmol/L (22-30) 02/06/17 04:45 Anion Gap 16 mmol/L 02/06/17 04:45 BUN 101 mg/dL (7-17) H 02/06/17 04:45 Creatinine 2.0 mg/dL (0.7-1.2) H 02/06/17 04:45 Estimated GFR 32 ml/min 02/06/17 04:45 BUN/Creatinine Ratio 51 % 02/06/17 04:45 Glucose 102 mg/dL (65-100) H 02/06/17 04:45 POC Glucose 115 (70-105) H 02/06/17 05:58 Osmolality 351 Mosm/kg 09/16/16 11:47 Lactic Acid 2.30 mmol/L (0.7-2.0) H* 01/09/17 08:22 Calcium 10.6 mg/dL (8.4-10.2) H 02/06/17 04:45 Phosphorus 4.20 mg/dL (2.5-4.5) D 02/06/17 04:45 Magnesium 1.80 mg/dL (1.7-2.3) 02/06/17 04:45 Total Bilirubin 0.40 mg/dL (0.1-1.2) 02/06/17 04:45 Direct Bilirubin 0.2 mg/dL (0-0.2) 01/28/17 04:00 Indirect Bilirubin 0.3 mg/dL 01/28/17 04:00 AST 29 units/L (5-40) 02/06/17 04:45 ALT 26 units/L (7-56) 02/06/17 04:45 Alkaline Phosphatase 199 units/L (35-129) H 02/06/17 04:45 Ammonia 27.0 umol/L (25-60) 09/07/16 08:37 Lactate Dehydrogenase 170 units/L (91-180) 01/13/17 15:50 Total Creatine Kinase 121 units/L (30-135) 09/29/16 20:12 CK-MB (CK-2) < 1.0 ng/mL (0.0-4.0) 09/29/16 20:12 CK-MB (CK-2) Rel Index 0.8 (0-4) 09/29/16 20:12 Troponin T 0.204 ng/mL (0.00-0.029) H* 09/29/16 20:12 C-Reactive Protein 8.10 mg/dL (0.00-1.30) H 01/31/17 11:12 Total Protein 6.7 g/dL (6.3-8.2) 02/06/17 04:45 Albumin 1.4 g/dL (3.9-5) L 02/06/17 04:45 Albumin/Globulin Ratio 0.3 % 02/06/17 04:45 Prealbumin 0.110 g/L (0.200-0.400) L 12/29/16 05:15 Triglycerides 55 mg/dL (2-149) 02/06/17 04:45 Cholesterol 31 mg/dL (50-199) L 09/29/16 20:12 LDL Cholesterol Direct 4 mg/dL (50-130) L 09/29/16 20:12 HDL Cholesterol 3 mg/dL (40-59) L 09/29/16 20:12 Cholesterol/HDL Ratio 10.33 % 09/29/16 20:12 Angiotensin Convert Enz See scanned report 09/08/16 11:48 Renin 0.99 ng/mL/h (0.25-5.82) 10/07/16 10:56 Aldosterone <1 ng/dL () 10/07/16 10:56 Aldosterone/Renin Dir see below 10/07/16 10:56 Serotonin Release Assay See scanned report 09/29/16 13:35 TSH 1.010 mlU/mL (0.270-4.200) 09/07/16 08:37 HCG, Qual Negative (Negative) 09/03/16 00:10 PTH Intact 6.76 pg/mL (15-65) L 01/31/17 17:50 Urine Color Yellow (Yellow) 11/05/16 13:09 Urine Turbidity Clear (Clear) 11/05/16 13:09 Urine pH 9.0 (5.0-7.0) H 11/05/16 13:09 Ur Specific [place] 1.011 (1.003-1.030) 11/05/16 13:09 Urine Protein 100 mg/dl mg/dL (Negative) 11/05/16 13:09 Urine Glucose (UA) Neg mg/dL (Negative) 11/05/16 13:09 Urine Ketones Neg mg/dL (Negative) 11/05/16 13:09 Urine Blood Neg (Negative) 11/05/16 13:09 Urine Nitrite Neg (Negative) 11/05/16 13:09 Urine Bilirubin Neg (Negative) 11/05/16 13:09 Urine Urobilinogen < 2.0 mg/dL (<2.0) 11/05/16 13:09 Ur Leukocyte Esterase Neg (Negative) 11/05/16 13:09 Urine WBC (Auto) 4.0 /HPF (0.0-6.0) 11/05/16 13:09 Urine RBC (Auto) 1.0 /HPF (0.0-6.0) 11/05/16 13:09 U Epithel Cells (Auto) 1.0 /HPF (0-13.0) 10/07/16 18:30 Urine Bacteria (Auto) 4+ /HPF (Negative) 11/05/16 13:09 Urine WBC Clumps 2+ /HPF 09/07/16 02:47 Hyaline Casts 4 /LPF 09/07/16 02:47 Urine Mucus Few /HPF 10/07/16 18:30 Urine Yeast (Budding) 3+ /HPF 10/07/16 18:30 Urine Eosinophils None seen (None Seen) 09/07/16 16:00 Urine Total Volume 950 11/12/16 10:18 Urine Creatinine 19.7 mg/dL (0.1-20.0) 11/12/16 10:18 Height (in) 65.0 inches 11/12/16 10:18 Weight (lb) 181.0 lbs 11/12/16 10:18 Creatinine Clearance 5 11/12/16 10:18 Urine Sodium 36 mEq/L 09/16/16 19:19 Urine Total Protein 16 mg/dL (5-11.8) H 09/16/16 19:19 Fluid Type Pleural 01/13/17 12:10 Fluid Color Yellow 01/13/17 12:10 Fluid Appearance Hazy 01/13/17 12:10 Fluid WBC 182 /mm3 01/13/17 12:10 Fluid RBC 41 /mm3 01/13/17 12:10 Fluid Seg Neutrophils 85.0 % 01/13/17 12:10 Fluid Lymphocytes 8.0 % 01/13/17 12:10 Fluid Reactive Lymphs 0 % 01/13/17 12:10 Fluid Monocytes 6.0 % 01/13/17 12:10 Fluid Eosinophils 1.0 % 01/13/17 12:10 Fluid Basophils 0 % 01/13/17 12:10 Fluid Total Protein 3.0 (15.0-45.0) L 01/13/17 12:10 Fluid LDH 1322 01/13/17 12:10 Fluid Comment Diff performed 01/13/17 12:10 Vancomycin Trough 2.3 ug/mL (5.0-20.0) L 09/21/16 13:00 Random Vancomycin 16.5 ug/mL (0-40.0) 11/28/16 09:45 Urine Opiates Screen Presumptive negative 09/03/16 15:11 Urine Methadone Screen Presumptive positive 09/03/16 15:11 Ur Barbiturates Screen Presumptive positive 09/03/16 15:11 Ur Phencyclidine Scrn Presumptive negative 09/03/16 15:11 Ur Amphetamines Screen Presumptive negative 09/03/16 15:11 U Benzodiazepines Scrn Presumptive negative 09/03/16 15:11 Urine Cocaine Screen Presumptive negative 09/03/16 15:11 U Marijuana (THC) Screen Presumptive positive 09/03/16 15:11 Drugs of Abuse Note Disclamer 09/03/16 15:11 Rheumatoid Factor 24 IU/ml (0-13) H 09/08/16 11:48 SAHIL Screen Negative (Negative) 09/07/16 09:20 Proteinase 3 (PR3) Ab <1.0 AI (<1.0) 09/07/16 09:20 Myeloperoxidase Ab <1.0 AI (<1.0) 09/07/16 09:20 Sjogren's Antibody <1.0 AI (<1.0) 09/08/16 15:35 Scl-70 Scleroderma Ab <1.0 AI (<1.0) 09/08/16 15:35 Centromere B Antibody <1.0 AI (<1.0) 09/08/16 12:02 Heparin-induced Plt Ab Negative (Negative) 09/29/16 13:35 UF Heparin High Dose 11 % Release 09/29/16 13:35 SUDHIR UFH Low Dose 0.1 6 % Release 09/29/16 13:35 SUDHIR UFH Low Dose 0.5 8 % Release 09/29/16 13:35 Cardiolipid IgG Ab <14 GPL (<=14) 09/12/16 09:59 Cardiolipid IgA Ab <11 APL (<=11) 09/12/16 09:59 Cardiolipid IgM Ab <12 MPL (<=12) 09/12/16 09:59 Complement C3 148 mg/dL (90-180) 09/07/16 09:20 Complement C4 58 mg/dL (16-47) H 09/07/16 09:20 RPR Nonreactive (Nonreactive) 09/08/16 11:48 Hepatitis A IgM Ab Non-reactive (NonReactive) 09/24/16 14:40 Hep Bs Antigen Non-reactive (Negative) 09/24/16 14:40 Hep B Core IgM Ab Non-reactive (NonReactive) 09/24/16 14:40 Hepatitis C Antibody Non-reactive (NonReactive) 09/24/16 14:40 HIV 1&2 Antibody Rapid Non react (Non React) 09/08/16 11:48 HIV P24 Antigen Non react (Non React) 09/08/16 11:48 Miscellaneous Test Flexitest 1 H 01/09/17 18:45 Blood Type A POSITIVE 01/25/17 11:15 Antibody Screen Negative 01/25/17 11:15 DELORIS Antibody Screen Negative 11/24/16 11:20 Crossmatch See Detail 01/25/17 11:15
[2017-02-06] MEDS ORDERED: NACL 0.9% 1000 ML 2,000 ML ONE (17:06)
[2017-02-06] MEDS ORDERED: INTRALIPID 20% 250 ML IV SCH (20:00)
[2017-02-06] MEDS ORDERED: TPN ADULT IV SCH (20:00)
[2017-02-06] MEDS: TAZICEF IV SCH (21:43)
[2017-02-06] MEDS: NACL 0.9% IV SCH (21:43)
[2017-02-07] MEDS: HumuLIN R SUB-Q SCH ×4 (00:23→18:19)
[2017-02-07] MEDS: HEPARIN SUB-Q SCH ×3 (00:24→21:59)
[2017-02-07] MEDS: REGLAN IV SCH ×4 (00:25→21:58)
[2017-02-07] MEDS: ROBINUL PO SCH ×3 (00:26→21:58)
[2017-02-07 07:08] LABS: Calcium 9.6 mg/dL (8.4-10.2)
[2017-02-07] MEDS: DUONEB *Not for PRN Use IH SCH ×4 (08:24→19:28)
[2017-02-07] MEDS: PROTONIX FEEDTUBE SCH (09:55)
--- NOTE | 2017-02-07 11:36 | Progress Note ---
Assessment and Plan Assessment and plan: -- Massive stroke with mass effect, vegetative stage; supportive care -- Acute hypoxic respiratory failure, s/p tracheostomy vent dependent -- Paroxysmal atrial fibrillation with RVR, failed cardioversion, beta blockers , not a candidate for anticoagulation -- Multiple episodes of sepsis with septic shock during her hospitalization s/p aspiration pneumonia/peritonitis from gastric perforation/UTI/candidemia/ decubitus ulcer s/p sacral decubitus debridement, Right pleural effusion - scheduled for chest ultrasound for possible thoracentesis Currently on meropenem with stop date 02/04 --Pleural effusion ; IR tried to place chest tube , however couldn't remove only 3-5 mL of purulent fluid , recommend CT surgeon PRN -- Acute renal failure/ ATN, received dialysis as needed -- Diabetes, Accu-Cheks and SSI -- Anemia, status post multiple PRBC transfusions -- Severe protein calorie malnutrition, supportive care to feeding -- full code, poor prognosis Family aware of patient's condition and poor prognosis Had multiple family meetings in the past, family wants everything to be done Discharge planning; possible placement, social issues History Interval history: Patient seen and examined medical records Clinically change Patient is unresponsive, status post tracheostomy. vital signs reviewed Hospitalist Physical - Constitutional Vitals: Temp Pulse Resp BP Pulse Ox 97.6 F 113 H 26 H 131/79 100 02/07/17 08:00 02/07/17 10:31 02/07/17 10:31 02/07/17 10:31 02/07/17 10:31 General appearance: Present: no acute distress, well-nourished, other ( tracheostomy on vent) - EENT Eyes: Present: PERRL, EOM intact - Neck Neck: Present: supple - Respiratory Respiratory: bilateral: diminished, rhonchi, negative: rales, wheezing - Cardiovascular Rhythm: regular Heart Sounds: Present: S1 & S2 - Extremities Extremities: no ischemia, abnormal (contracted) - Abdominal General gastrointestinal: soft, non-tender, other (PEG tube in place) - Integumentary Integumentary: Present: clear, warm - Psychiatric Psychiatric: other (unresponsive) - Neurologic Neurologic: other (unresponsive) Results - Labs CBC & Chem 7: 02/05/17 09:59 02/07/17 06:30 Labs: Laboratory Last Values WBC 10.2 K/mm3 (4.5-11.0) 02/05/17 09:59 RBC 2.69 M/mm3 (3.65-5.03) L 02/05/17 09:59 Hgb 7.2 gm/dl (10.1-14.3) L 02/05/17 09:59 Hct 22.5 % (30.3-42.9) L 02/05/17 09:59 MCV 84 fl (79-97) 02/05/17 09:59 MCH 27 pg (28-32) L 02/05/17 09:59 MCHC 32 % (30-34) 02/05/17 09:59 RDW 18.6 % (13.2-15.2) H 02/05/17 09:59 Plt Count 272 K/mm3 (140-440) 02/05/17 09:59 Lymph % (Auto) 19.3 % (13.4-35.0) 02/05/17 09:59 [place] % (Auto) 9.2 % (0.0-7.3) H 02/05/17 09:59 Eos % (Auto) 1.8 % (0.0-4.3) 02/05/17 09:59 Baso % (Auto) 0.5 % (0.0-1.8) 02/05/17 09:59 Lymph # 2.0 K/mm3 (1.2-5.4) 02/05/17 09:59 [place] # 0.9 K/mm3 (0.0-0.8) H 02/05/17 09:59 Eos # 0.2 K/mm3 (0.0-0.4) 02/05/17 09:59 Baso # 0.0 K/mm3 (0.0-0.1) 02/05/17 09:59 Add Manual Diff Complete 12/19/16 05:02 Total Counted 100 12/19/16 05:02 Seg Neutrophils % 69.2 % (40.0-70.0) 02/05/17 09:59 Seg Neuts % (Manual) 64.0 % (40.0-70.0) 12/19/16 05:02 Band Neutrophils % 15.0 % 12/19/16 05:02 Lymphocytes % (Manual) 13.0 % (13.4-35.0) L 12/19/16 05:02 Reactive Lymphs % (Man) 0 % 12/19/16 05:02 Monocytes % (Manual) 7.0 % (0.0-7.3) 12/19/16 05:02 Eosinophils % (Manual) 0 % (0.0-4.3) 12/19/16 05:02 Basophils % (Manual) 1.0 % (0.0-1.8) 12/19/16 05:02 Metamyelocytes % 0 % 12/19/16 05:02 Myelocytes % 0 % 12/19/16 05:02 Promyelocytes % 0 % 12/19/16 05:02 Blast Cells % 0 % 12/19/16 05:02 Nucleated RBC % 1.0 % (0.0-0.9) H 12/19/16 05:02 Seg Neutrophils # 7.1 K/mm3 (1.8-7.7) 02/05/17 09:59 Seg Neutrophils # Man 12.9 K/mm3 (1.8-7.7) H 12/19/16 05:02 Band Neutrophils # 3.0 K/mm3 12/19/16 05:02 Lymphocytes # (Manual) 2.6 K/mm3 (1.2-5.4) 12/19/16 05:02 Abs React Lymphs (Man) 0.0 K/mm3 12/19/16 05:02 Monocytes # (Manual) 1.4 K/mm3 (0.0-0.8) H 12/19/16 05:02 Eosinophils # (Manual) 0.0 K/mm3 (0.0-0.4) 12/19/16 05:02 Basophils # (Manual) 0.2 K/mm3 (0.0-0.1) H 12/19/16 05:02 Metamyelocytes # 0.0 K/mm3 12/19/16 05:02 Myelocytes # 0.0 K/mm3 12/19/16 05:02 Promyelocytes # 0.0 K/mm3 12/19/16 05:02 Blast Cells # 0.0 K/mm3 12/19/16 05:02 Pathologist Review 09/13/16 04:00 WBC Morphology Not Reportable 12/19/16 05:02 Hypersegmented Neuts Not Reportable 12/19/16 05:02 Hyposegmented Neuts Not Reportable 12/19/16 05:02 Hypogranular Neuts Not Reportable 12/19/16 05:02 Smudge Cells Not Reportable 12/19/16 05:02 Toxic Granulation Not Reportable 12/19/16 05:02 Toxic Vacuolation Not Reportable 12/19/16 05:02 Dohle Bodies Not Reportable 12/19/16 05:02 Pelger-Huet Anomaly Not Reportable 12/19/16 05:02 Jasmina Rods Not Reportable 12/19/16 05:02 Platelet Estimate Consistent w auto 12/19/16 05:02 Clumped Platelets Not Reportable 12/19/16 05:02 Plt Clumps, EDTA Not Reportable 12/19/16 05:02 Large Platelets Not Reportable 12/19/16 05:02 Giant Platelets Not Reportable 12/19/16 05:02 Platelet Satelliting Not Reportable 12/19/16 05:02 Plt Morphology Comment Not Reportable 12/19/16 05:02 RBC Morphology Not Reportable 12/19/16 05:02 Dimorphic RBCs Not Reportable 12/19/16 05:02 Polychromasia Not Reportable 12/19/16 05:02 Hypochromasia Not Reportable 12/19/16 05:02 Poikilocytosis Not Reportable 12/19/16 05:02 Anisocytosis Not Reportable 12/19/16 05:02 Microcytosis Not Reportable 12/19/16 05:02 Macrocytosis Not Reportable 12/19/16 05:02 Spherocytes Not Reportable 12/19/16 05:02 Pappenheimer Bodies Not Reportable 12/19/16 05:02 Sickle Cells Not Reportable 12/19/16 05:02 Target Cells Few 12/19/16 05:02 Tear Drop Cells Not Reportable 12/19/16 05:02 Ovalocytes Not Reportable 12/19/16 05:02 Stomatocytes Rare 12/03/16 04:00 Helmet Cells Not Reportable 12/19/16 05:02 Monet-Steinauer Bodies Not Reportable 12/19/16 05:02 [place] Rings Not Reportable 12/19/16 05:02 Chuck Cells Not Reportable 12/19/16 05:02 Bite Cells Not Reportable 12/19/16 05:02 Crenated Cell Not Reportable 12/19/16 05:02 Elliptocytes Not Reportable 12/19/16 05:02 Acanthocytes (Spur) Not Reportable 12/19/16 05:02 Rouleaux Not Reportable 12/19/16 05:02 Hemoglobin C Crystals Not Reportable 12/19/16 05:02 Schistocytes Not Reportable 12/19/16 05:02 Malaria parasites Not Reportable 12/19/16 05:02 ESR > 140.0 mm/Hr (0-20) 09/08/16 11:48 Jun Bodies Not Reportable 12/19/16 05:02 Hem Pathologist Commnt No 12/19/16 05:02 PT 15.4 Sec. (12.2-14.9) H 01/13/17 15:50 INR 1.16 (0.87-1.13) H 01/13/17 15:50 APTT 33.0 Sec. (24.2-36.6) 10/09/16 03:45 Thrombin Time 16.8 Sec. (15.1-19.6) 09/03/16 00:10 Fibrinogen 750 mg/dl (211-480) H 09/08/16 11:48 Lupus Anticoagulant see below 09/12/16 09:59 LA PTT Baseline See scanned report 09/12/16 09:59 dRVVT Confirm Interp Positive (Negative) H 09/12/16 09:59 dRVVT Screen 50:50 See scanned report 09/12/16 09:59 dRVVT Mix Interpret See scanned report 09/12/16 09:59 Protein C Antigen 122 % (70-140) 09/08/16 15:35 Free Protein S 97 % normal (50-147) 09/08/16 15:35 Total Protein S 109 % (70-140) 09/08/16 15:35 Antithrombin III Ag 100 % (80-120) 09/08/16 15:35 Heparin Anti-Xa, Unfract Negative (Negative) 09/29/16 13:35 Factor V Activity 182 % (65-150) H 09/08/16 15:35 POC ABG pH 7.436 (7.35-7.45) 01/20/17 12:17 ABG pH 7.450 pH Units (7.350-7.450) 12/05/16 Unknown POC ABG pCO2 35.3 (35-45) 01/20/17 12: ABG pCO2 29.6 mm Hg 12/05/16 Unknown POC ABG pO2 70 (80-105) L 01/20/17 12: ABG pO2 75.2 mm Hg (80.0-90.0) L 12/05/16 Unknown POC ABG HCO3 23.8 01/20/17 12: ABG HCO3 20.1 mmol/L (20.0-26.0) 12/05/16 Unknown POC ABG Total CO2 25 01/20/17 12:17 POC ABG O2 Sat 94 01/20/17 12: ABG O2 Saturation 96.8 % (95.0-99.0) 12/05/16 Unknown ABG O2 Content 9.9 (0.0-44) 12/05/16 Unknown POC ABG Base Excess 0 01/20/17 12: ABG Base Excess -3.4 mmol/L (-2.0-3.0) L 12/05/16 Unknown ABG Hemoglobin 7.4 gm/dl (12.0-16.0) L 12/05/16 Unknown ABG Carboxyhemoglobin 1.8 % (0.0-5.0) 12/05/16 Unknown ABG Methemoglobin 0.6 % (0.0-1.5) 12/05/16 Unknown Oxyhemoglobin 94.5 % (95.0-99.0) L 12/05/16 Unknown FiO2 30 % 01/20/17 12:17 Sodium 138 mmol/L (137-145) 02/07/17 06:30 Potassium 3.4 mmol/L (3.6-5.0) L 02/07/17 06:30 Chloride 100.0 mmol/L (98-107) 02/07/17 06:30 Carbon Dioxide 25 mmol/L (22-30) 02/07/17 06:30 Anion Gap 16 mmol/L 02/07/17 06:30 BUN 69 mg/dL (7-17) H 02/07/17 06:30 Creatinine 1.5 mg/dL (0.7-1.2) H 02/07/17 06:30 Estimated GFR 45 ml/min 02/07/17 06:30 BUN/Creatinine Ratio 46 % 02/07/17 06:30 Glucose 105 mg/dL (65-100) H 02/07/17 06:30 POC Glucose 119 (70-105) H 02/07/17 05:04 Osmolality 351 Mosm/kg 09/16/16 11:47 Lactic Acid 2.30 mmol/L (0.7-2.0) H* 01/09/17 08:22 Calcium 9.6 mg/dL (8.4-10.2) 02/07/17 06:30 Phosphorus 2.60 mg/dL (2.5-4.5) D 02/07/17 06:30 Magnesium 1.50 mg/dL (1.7-2.3) L 02/07/17 06:30 Total Bilirubin 0.40 mg/dL (0.1-1.2) 02/06/17 04:45 Direct Bilirubin 0.2 mg/dL (0-0.2) 01/28/17 04:00 Indirect Bilirubin 0.3 mg/dL 01/28/17 04:00 AST 29 units/L (5-40) 02/06/17 04:45 ALT 26 units/L (7-56) 02/06/17 04:45 Alkaline Phosphatase 199 units/L (35-129) H 02/06/17 04:45 Ammonia 27.0 umol/L (25-60) 09/07/16 08:37 Lactate Dehydrogenase 170 units/L (91-180) 01/13/17 15:50 Total Creatine Kinase 121 units/L (30-135) 09/29/16 20:12 CK-MB (CK-2) < 1.0 ng/mL (0.0-4.0) 09/29/16 20:12 CK-MB (CK-2) Rel Index 0.8 (0-4) 09/29/16 20:12 Troponin T 0.204 ng/mL (0.00-0.029) H* 09/29/16 20:12 C-Reactive Protein 8.10 mg/dL (0.00-1.30) H 01/31/17 11:12 Total Protein 6.7 g/dL (6.3-8.2) 02/06/17 04:45 Albumin 1.4 g/dL (3.9-5) L 02/06/17 04:45 Albumin/Globulin Ratio 0.3 % 02/06/17 04:45 Prealbumin 0.110 g/L (0.200-0.400) L 12/29/16 05:15 Triglycerides 55 mg/dL (2-149) 02/06/17 04:45 Cholesterol 31 mg/dL (50-199) L 09/29/16 20:12 LDL Cholesterol Direct 4 mg/dL (50-130) L 09/29/16 20:12 HDL Cholesterol 3 mg/dL (40-59) L 09/29/16 20:12 Cholesterol/HDL Ratio 10.33 % 09/29/16 20:12 Angiotensin Convert Enz See scanned report 09/08/16 11:48 Renin 0.99 ng/mL/h (0.25-5.82) 10/07/16 10:56 Aldosterone <1 ng/dL () 10/07/16 10:56 Aldosterone/Renin Dir see below 10/07/16 10:56 Serotonin Release Assay See scanned report 09/29/16 13:35 TSH 1.010 mlU/mL (0.270-4.200) 09/07/16 08:37 HCG, Qual Negative (Negative) 09/03/16 00:10 PTH Intact 6.76 pg/mL (15-65) L 01/31/17 17:50 Urine Color Yellow (Yellow) 11/05/16 13:09 Urine Turbidity Clear (Clear) 11/05/16 13:09 Urine pH 9.0 (5.0-7.0) H 11/05/16 13:09 Ur Specific [place] 1.011 (1.003-1.030) 11/05/16 13:09 Urine Protein 100 mg/dl mg/dL (Negative) 11/05/16 13:09 Urine Glucose (UA) Neg mg/dL (Negative) 11/05/16 13:09 Urine Ketones Neg mg/dL (Negative) 11/05/16 13:09 Urine Blood Neg (Negative) 11/05/16 13:09 Urine Nitrite Neg (Negative) 11/05/16 13:09 Urine Bilirubin Neg (Negative) 11/05/16 13:09 Urine Urobilinogen < 2.0 mg/dL (<2.0) 11/05/16 13:09 Ur Leukocyte Esterase Neg (Negative) 11/05/16 13:09 Urine WBC (Auto) 4.0 /HPF (0.0-6.0) 11/05/16 13:09 Urine RBC (Auto) 1.0 /HPF (0.0-6.0) 11/05/16 13:09 U Epithel Cells (Auto) 1.0 /HPF (0-13.0) 10/07/16 18:30 Urine Bacteria (Auto) 4+ /HPF (Negative) 11/05/16 13:09 Urine WBC Clumps 2+ /HPF 09/07/16 02:47 Hyaline Casts 4 /LPF 09/07/16 02:47 Urine Mucus Few /HPF 10/07/16 18:30 Urine Yeast (Budding) 3+ /HPF 10/07/16 18:30 Urine Eosinophils None seen (None Seen) 09/07/16 16:00 Urine Total Volume 950 11/12/16 10:18 Urine Creatinine 19.7 mg/dL (0.1-20.0) 11/12/16 10:18 Height (in) 65.0 inches 11/12/16 10:18 Weight (lb) 181.0 lbs 11/12/16 10:18 Creatinine Clearance 5 11/12/16 10:18 Urine Sodium 36 mEq/L 09/16/16 19:19 Urine Total Protein 16 mg/dL (5-11.8) H 09/16/16 19:19 Fluid Type Pleural 01/13/17 12:10 Fluid Color Yellow 01/13/17 12:10 Fluid Appearance Hazy 01/13/17 12:10 Fluid WBC 182 /mm3 01/13/17 12:10 Fluid RBC 41 /mm3 01/13/17 12:10 Fluid Seg Neutrophils 85.0 % 01/13/17 12:10 Fluid Lymphocytes 8.0 % 01/13/17 12:10 Fluid Reactive Lymphs 0 % 01/13/17 12:10 Fluid Monocytes 6.0 % 01/13/17 12:10 Fluid Eosinophils 1.0 % 01/13/17 12:10 Fluid Basophils 0 % 01/13/17 12:10 Fluid Total Protein 3.0 (15.0-45.0) L 01/13/17 12:10 Fluid LDH 1322 01/13/17 12:10 Fluid Comment Diff performed 01/13/17 12:10 Vancomycin Trough 2.3 ug/mL (5.0-20.0) L 09/21/16 13:00 Random Vancomycin 16.5 ug/mL (0-40.0) 11/28/16 09:45 Urine Opiates Screen Presumptive negative 09/03/16 15:11 Urine Methadone Screen Presumptive positive 09/03/16 15:11 Ur Barbiturates Screen Presumptive positive 09/03/16 15:11 Ur Phencyclidine Scrn Presumptive negative 09/03/16 15:11 Ur Amphetamines Screen Presumptive negative 09/03/16 15:11 U Benzodiazepines Scrn Presumptive negative 09/03/16 15:11 Urine Cocaine Screen Presumptive negative 09/03/16 15:11 U Marijuana (THC) Screen Presumptive positive 09/03/16 15:11 Drugs of Abuse Note Disclamer 09/03/16 15:11 Rheumatoid Factor 24 IU/ml (0-13) H 09/08/16 11:48 SAHIL Screen Negative (Negative) 09/07/16 09:20 Proteinase 3 (PR3) Ab <1.0 AI (<1.0) 09/07/16 09:20 Myeloperoxidase Ab <1.0 AI (<1.0) 09/07/16 09:20 Sjogren's Antibody <1.0 AI (<1.0) 09/08/16 15:35 Scl-70 Scleroderma Ab <1.0 AI (<1.0) 09/08/16 15:35 Centromere B Antibody <1.0 AI (<1.0) 09/08/16 12:02 Heparin-induced Plt Ab Negative (Negative) 09/29/16 13:35 UF Heparin High Dose 11 % Release 09/29/16 13:35 SUDHIR UFH Low Dose 0.1 6 % Release 09/29/16 13:35 SUDHIR UFH Low Dose 0.5 8 % Release 09/29/16 13:35 Cardiolipid IgG Ab <14 GPL (<=14) 09/12/16 09:59 Cardiolipid IgA Ab <11 APL (<=11) 09/12/16 09:59 Cardiolipid IgM Ab <12 MPL (<=12) 09/12/16 09:59 Complement C3 148 mg/dL (90-180) 09/07/16 09:20 Complement C4 58 mg/dL (16-47) H 09/07/16 09:20 RPR Nonreactive (Nonreactive) 09/08/16 11:48 Hepatitis A IgM Ab Non-reactive (NonReactive) 09/24/16 14:40 Hep Bs Antigen Non-reactive (Negative) 09/24/16 14:40 Hep B Core IgM Ab Non-reactive (NonReactive) 09/24/16 14:40 Hepatitis C Antibody Non-reactive (NonReactive) 09/24/16 14:40 HIV 1&2 Antibody Rapid Non react (Non React) 09/08/16 11:48 HIV P24 Antigen Non react (Non React) 09/08/16 11:48 Miscellaneous Test Flexitest 1 H 01/09/17 18:45 Blood Type A POSITIVE 01/25/17 11:15 Antibody Screen Negative 01/25/17 11:15 DELORIS Antibody Screen Negative 11/24/16 11:20 Crossmatch See Detail 01/25/17 11:15
--- NOTE | 2017-02-07 12:46 | Progress Note ---
Assessment and Plan Acute Hypoxemic Respiratory Failure (now with exacerbation and back on MVS) Hypertension (unable to receive p.o. meds) Atrial Fibrillation with RVR s/p tracheostomy Acute encephalopathy s/p CVA Oropharyngeal dysphagia Enterococcal bacteremia sepsis syndrome Sacral Decubitus Ulcer (s/p surgical debridement) Anemia Obesity JUANITA now on hemodialysis Enteric Fistula - continue to hold tube feeds due to continued intolerance continue reglan at 10mg IV q8h - IR consulted for G-J tube (not a good candidate for G-J Tube per IR) - follow pleural fluid cultures; unfortunately not a good candidate for a VATS procedure - appreciate surgery input - continue fentanyl patch for pain issues especially s/p debridement - continue wound care per WCT and RN's (she is s/p surgical debridement) - continue anti-infectives per ID recs (az now) - prn CRP & lactate levels if clinically indicated (Follow WBC also) - keep on with daily PSV trials and / or T-piece as tolerated - continue TPN administration - continue scopolamine for secretion control - continue to wean FiO2 for sats > 94% - continue bronchodilators and pulmonary toilet - VAP bundle addressed - continue prn IV metorolol (5mg IV q6h) - continue metoprolol and amlodipine (hold for hypotension) - continue to follow electrolytes and correct as necessary - continue GI & VTE prophylaxis - Continue flu & pneumovax per protocol - ethics consult placed and pending .....she remains critically ill on life sustaining interventions including MVS and at risk for further deterioration including ....30' CCT today without overlap ....care plan discussed at length during team rounds ...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 and this has intermittently been conveyed to family Subjective Date of service: 02/07/17 Principal diagnosis: Acute resp failure on MVS; S/P Acute CVA; Acute Encephalopathy; JUANITA Interval history: Patient is seen today for: Acute resp failure on MVS; S/P Acute CVA; Acute Encephalopathy; JUANITA Seen and examined at bedside; 24hour events reviewed; nursing and respiratory care staff consulted; no adverse overnight events reported to me; remains on MVS ; pleural fluid cultures NGTD; effluent has diminished significantly from RUQ drains; AMS is persistent Objective Vital Signs - 12hr 02/07/17 02/07/17 02/07/17 01:00 01:30 02:00 Temperature Pulse Rate 111 H 119 H 115 H Pulse Rate [ 118 H Anterior Bilateral Throughout] Pulse Rate [ Apical] Pulse Rate [ From Monitor] Pulse Rate [ Left Dorsalis Pedis] Pulse Rate [ Left Radial] Pulse Rate [ Right Dorsalis Pedis] Pulse Rate [ Right Lower Lobe] Pulse Rate [ Right Radial] Respiratory 20 22 17 Rate Respiratory 17 Rate [Anterior Bilateral Throughout] Respiratory Rate [Right Lower Lobe] Blood Pressure 153/96 153/96 166/105 O2 Sat by Pulse 100 100 100 Oximetry 02/07/17 02/07/17 02/07/17 02:30 03:00 03:29 Temperature 98.8 F Pulse Rate 113 H 115 H Pulse Rate [ Anterior Bilateral Throughout] Pulse Rate [ Apical] Pulse Rate [ From Monitor] Pulse Rate [ Left Dorsalis Pedis] Pulse Rate [ Left Radial] Pulse Rate [ Right Dorsalis Pedis] Pulse Rate [ Right Lower Lobe] Pulse Rate [ Right Radial] Respiratory 19 19 Rate Respiratory Rate [Anterior Bilateral Throughout] Respiratory Rate [Right Lower Lobe] Blood Pressure 166/105 170/98 O2 Sat by Pulse 100 Oximetry 02/07/17 02/07/17 02/07/17 03:30 04:00 04:30 Temperature Pulse Rate 117 H 111 H 117 H Pulse Rate [ Anterior Bilateral Throughout] Pulse Rate [ 87 Apical] Pulse Rate [ 87 From Monitor] Pulse Rate [ 87 Left Dorsalis Pedis] Pulse Rate [ 87 Left Radial] Pulse Rate [ 87 Right Dorsalis Pedis] Pulse Rate [ Right Lower Lobe] Pulse Rate [ 87 Right Radial] Respiratory 17 17 16 Rate Respiratory Rate [Anterior Bilateral Throughout] Respiratory Rate [Right Lower Lobe] Blood Pressure 170/98 168/101 168/101 O2 Sat by Pulse 100 100 100 Oximetry 02/07/17 02/07/17 02/07/17 05:00 05:30 06:00 Temperature Pulse Rate 119 H 111 H 120 H Pulse Rate [ Anterior Bilateral Throughout] Pulse Rate [ Apical] Pulse Rate [ From Monitor] Pulse Rate [ Left Dorsalis Pedis] Pulse Rate [ Left Radial] Pulse Rate [ Right Dorsalis Pedis] Pulse Rate [ Right Lower Lobe] Pulse Rate [ Right Radial] Respiratory 16 20 20 Rate Respiratory Rate [Anterior Bilateral Throughout] Respiratory Rate [Right Lower Lobe] Blood Pressure 173/108 173/108 179/115 O2 Sat by Pulse 100 100 100 Oximetry 1202/07/17 02/07/17 06:30 07:00 07:31 Temperature Pulse Rate 114 H 109 H 105 H Pulse Rate [ Anterior Bilateral Throughout] Pulse Rate [ Apical] Pulse Rate [ From Monitor] Pulse Rate [ Left Dorsalis Pedis] Pulse Rate [ Left Radial] Pulse Rate [ Right Dorsalis Pedis] Pulse Rate [ Right Lower Lobe] Pulse Rate [ Right Radial] Respiratory 12 22 21 Rate Respiratory Rate [Anterior Bilateral Throughout] Respiratory Rate [Right Lower Lobe] Blood Pressure 146/79 142/88 O2 Sat by Pulse 100 100 Oximetry 02/07/17 02/07/17 02/07/17 08:00 08:20 08:24 Temperature 97.6 F Pulse Rate 106 H 109 H Pulse Rate [ Anterior Bilateral Throughout] Pulse Rate [ Apical] Pulse Rate [ From Monitor] Pulse Rate [ Left Dorsalis Pedis] Pulse Rate [ Left Radial] Pulse Rate [ Right Dorsalis Pedis] Pulse Rate [ 108 H Right Lower Lobe] Pulse Rate [ Right Radial] Respiratory 18 29 H Rate Respiratory Rate [Anterior Bilateral Throughout] Respiratory 28 H Rate [Right Lower Lobe] Blood Pressure 136/85 136/85 O2 Sat by Pulse 100 100 Oximetry 02/07/17 02/07/17 02/07/17 08:31 08:42 09:00 Temperature Pulse Rate 96 H 120 H Pulse Rate [ 108 H Anterior Bilateral Throughout] Pulse Rate [ Apical] Pulse Rate [ From Monitor] Pulse Rate [ Left Dorsalis Pedis] Pulse Rate [ Left Radial] Pulse Rate [ Right Dorsalis Pedis] Pulse Rate [ Right Lower Lobe] Pulse Rate [ Right Radial] Respiratory 21 35 H Rate Respiratory 17 Rate [Anterior Bilateral Throughout] Respiratory Rate [Right Lower Lobe] Blood Pressure 136/85 133/81 O2 Sat by Pulse 100 100 Oximetry 02/07/17 02/07/17 02/07/17 09:31 10:00 10:31 Temperature Pulse Rate 111 H 113 H 113 H Pulse Rate [ Anterior Bilateral Throughout] Pulse Rate [ Apical] Pulse Rate [ From Monitor] Pulse Rate [ Left Dorsalis Pedis] Pulse Rate [ Left Radial] Pulse Rate [ Right Dorsalis Pedis] Pulse Rate [ Right Lower Lobe] Pulse Rate [ Right Radial] Respiratory 35 H 30 H 26 H Rate Respiratory Rate [Anterior Bilateral Throughout] Respiratory Rate [Right Lower Lobe] Blood Pressure 133/81 131/79 131/79 O2 Sat by Pulse 100 100 100 Oximetry 02/07/17 12:21 Temperature Pulse Rate 115 H Pulse Rate [ Anterior Bilateral Throughout] Pulse Rate [ Apical] Pulse Rate [ From Monitor] Pulse Rate [ Left Dorsalis Pedis] Pulse Rate [ Left Radial] Pulse Rate [ Right Dorsalis Pedis] Pulse Rate [ Right Lower Lobe] Pulse Rate [ Right Radial] Respiratory Rate Respiratory Rate [Anterior Bilateral Throughout] Respiratory Rate [Right Lower Lobe] Blood Pressure 142/96 O2 Sat by Pulse 100 Oximetry Constitutional: appears uncomfortable, other (not tracking) Eyes: non-icteric, other (tracheostomy tube in midline of neck) ENT: oropharynx moist, oropharyngeal exudate pre Neck: supple, no lymphadenopathy, no JVD, other (no thyromegaly) Effort: mildly labored Ascultation: Bilateral: diminished breath sounds (bases R>L), rhonchi (and referred upper airway sounds) Percussion: Right: dull (base), Bilateral: not dull Cardiovascular: regular rate and rhythm, other (no rubs / murmurs) Gastrointestinal: hypoactive bowel sounds, soft, non-tender, non-distended, other (RLQ & LUQ stomas with colostomy bags) Integumentary: decubitus ulcer (sacral; stage 4 s/p surgical debridement), other (no rash; no cellulitis; poor turgor) Extremities: no cyanosis, pulses normal, no ischemia or petechiae, edema (1+ bilaterally) Neurologic: pupils equal and round, unable to assess, other (encephalopathic) Psychiatric: other (unable to assess) CBC and BMP: 02/05/17 09:59 02/08/17 04:00 ABG, PT/INR, D-dimer: ABG POC ABG pH 7.436 (7.35-7.45) 01/20/17 12: ABG pH 7.450 pH Units (7.350-7.450) 12/05/16 Unknown POC ABG pCO2 35.3 (35-45) 01/20/17 12: ABG pCO2 29.6 mm Hg 12/05/16 Unknown POC ABG pO2 70 (80-105) L 01/20/17 12: ABG pO2 75.2 mm Hg (80.0-90.0) L 12/05/16 Unknown POC ABG HCO3 23.8 01/20/17 12:17 POC ABG Total CO2 25 01/20/17 12:17 POC ABG O2 Sat 94 01/20/17 12:17 ABG O2 Saturation 96.8 % (95.0-99.0) 12/05/16 Unknown PT/INR, D-dimer PT 15.4 Sec. (12.2-14.9) H 01/13/17 15:50 INR 1.16 (0.87-1.13) H 01/13/17 15:50 Abnormal lab findings: Abnormal Labs 09/03/16 09/03/16 09/03/16 00:03 00:10 00:10 WBC 13.9 H RBC 5.95 H Hgb Hct 44.0 H MCV 74 L MCH 22 L MCHC RDW 17.5 H Plt Count Lymph % (Auto) [place] % (Auto) Lymph # [place] # Baso # Seg Neutrophils % Seg Neuts % (Manual) Lymphocytes % (Manual) 54.0 H Monocytes % (Manual) Eosinophils % (Manual) Basophils % (Manual) Nucleated RBC % Seg Neutrophils # Seg Neutrophils # Man Lymphocytes # (Manual) 7.5 H Monocytes # (Manual) Eosinophils # (Manual) Basophils # (Manual) PT INR Fibrinogen dRVVT Confirm Interp Factor V Activity POC ABG pH POC ABG pCO2 POC ABG pO2 ABG pO2 ABG HCO3 ABG Base Excess ABG Hemoglobin Oxyhemoglobin Sodium Potassium 2.8 L* Chloride Carbon Dioxide 21 L BUN Creatinine 1.7 H Glucose 159 H POC Glucose 177 H Lactic Acid Calcium Phosphorus Magnesium Direct Bilirubin AST ALT Alkaline Phosphatase Lactate Dehydrogenase Troponin T C-Reactive Protein Total Protein Albumin Prealbumin Triglycerides Cholesterol LDL Cholesterol Direct HDL Cholesterol PTH Intact Urine pH Urine WBC (Auto) Urine Creatinine Urine Total Protein Fluid Total Protein Vancomycin Trough Rheumatoid Factor Complement C4 Miscellaneous Test Crossmatch 09/03/16 09/03/16 09/03/16 12:12 15:07 16:20 WBC RBC Hgb Hct MCV MCH MCHC RDW Plt Count Lymph % (Auto) [place] % (Auto) Lymph # [place] # Baso # Seg Neutrophils % Seg Neuts % (Manual) Lymphocytes % (Manual) Monocytes % (Manual) Eosinophils % (Manual) Basophils % (Manual) Nucleated RBC % Seg Neutrophils # Seg Neutrophils # Man Lymphocytes # (Manual) Monocytes # (Manual) Eosinophils # (Manual) Basophils # (Manual) PT INR Fibrinogen dRVVT Confirm Interp Factor V Activity POC ABG pH 7.452 H POC ABG pCO2 POC ABG pO2 ABG pO2 ABG HCO3 ABG Base Excess ABG Hemoglobin Oxyhemoglobin Sodium Potassium Chloride Carbon Dioxide BUN Creatinine Glucose POC Glucose 178 H Lactic Acid Calcium Phosphorus 2.20 L Magnesium 1.60 L Direct Bilirubin AST ALT Alkaline Phosphatase Lactate Dehydrogenase Troponin T C-Reactive Protein Total Protein Albumin Prealbumin Triglycerides Cholesterol LDL Cholesterol Direct HDL Cholesterol PTH Intact Urine pH Urine WBC (Auto) Urine Creatinine Urine Total Protein Fluid Total Protein Vancomycin Trough Rheumatoid Factor Complement C4 Miscellaneous Test Crossmatch 09/03/16 09/03/16 09/03/16 17:57 17:58 23:50 WBC RBC Hgb Hct MCV MCH MCHC RDW Plt Count Lymph % (Auto) [place] % (Auto) Lymph # [place] # Baso # Seg Neutrophils % Seg Neuts % (Manual) Lymphocytes % (Manual) Monocytes % (Manual) Eosinophils % (Manual) Basophils % (Manual) Nucleated RBC % Seg Neutrophils # Seg Neutrophils # Man Lymphocytes # (Manual) Monocytes # (Manual) Eosinophils # (Manual) Basophils # (Manual) PT INR Fibrinogen dRVVT Confirm Interp Factor V Activity POC ABG pH POC ABG pCO2 POC ABG pO2 ABG pO2 ABG HCO3 ABG Base Excess ABG Hemoglobin Oxyhemoglobin Sodium Potassium Chloride Carbon Dioxide BUN Creatinine Glucose POC Glucose 162 H 145 H Lactic Acid Calcium Phosphorus 2.30 L Magnesium Direct Bilirubin AST ALT Alkaline Phosphatase Lactate Dehydrogenase Troponin T C-Reactive Protein Total Protein Albumin Prealbumin Triglycerides Cholesterol LDL Cholesterol Direct HDL Cholesterol PTH Intact Urine pH Urine WBC (Auto) Urine Creatinine Urine Total Protein Fluid Total Protein Vancomycin Trough Rheumatoid Factor Complement C4 Miscellaneous Test Crossmatch 09/04/16 09/04/16 09/04/16 03:31 03:31 05:42 WBC RBC Hgb 9.7 L D Hct MCV 72 L MCH 23 L MCHC RDW 17.5 H Plt Count Lymph % (Auto) 11.1 L [place] % (Auto) Lymph # [place] # Baso # Seg Neutrophils % 84.3 H Seg Neuts % (Manual) Lymphocytes % (Manual) Monocytes % (Manual) Eosinophils % (Manual) Basophils % (Manual) Nucleated RBC % Seg Neutrophils # 8.9 H Seg Neutrophils # Man Lymphocytes # (Manual) Monocytes # (Manual) Eosinophils # (Manual) Basophils # (Manual) PT INR Fibrinogen dRVVT Confirm Interp Factor V Activity POC ABG pH POC ABG pCO2 POC ABG pO2 ABG pO2 ABG HCO3 ABG Base Excess ABG Hemoglobin Oxyhemoglobin Sodium 135 L Potassium 2.9 L* Chloride 97.2 L Carbon Dioxide 19 L BUN Creatinine 1.7 H Glucose 170 H POC Glucose 152 H Lactic Acid Calcium Phosphorus Magnesium Direct Bilirubin AST ALT Alkaline Phosphatase Lactate Dehydrogenase Troponin T C-Reactive Protein Total Protein Albumin Prealbumin Triglycerides 160 H Cholesterol LDL Cholesterol Direct HDL Cholesterol 31 L PTH Intact Urine pH Urine WBC (Auto) Urine Creatinine Urine Total Protein Fluid Total Protein Vancomycin Trough Rheumatoid Factor Complement C4 Miscellaneous Test Crossmatch 09/04/16 09/04/16 09/04/16 11:34 17:46 23:29 WBC RBC Hgb Hct MCV MCH MCHC RDW Plt Count Lymph % (Auto) [place] % (Auto) Lymph # [place] # Baso # Seg Neutrophils % Seg Neuts % (Manual) Lymphocytes % (Manual) Monocytes % (Manual) Eosinophils % (Manual) Basophils % (Manual) Nucleated RBC % Seg Neutrophils # Seg Neutrophils # Man Lymphocytes # (Manual) Monocytes # (Manual) Eosinophils # (Manual) Basophils # (Manual) PT INR Fibrinogen dRVVT Confirm Interp Factor V Activity POC ABG pH POC ABG pCO2 POC ABG pO2 ABG pO2 ABG HCO3 ABG Base Excess ABG Hemoglobin Oxyhemoglobin Sodium Potassium Chloride Carbon Dioxide BUN Creatinine Glucose POC Glucose 165 H 210 H 139 H Lactic Acid Calcium Phosphorus Magnesium Direct Bilirubin AST ALT Alkaline Phosphatase Lactate Dehydrogenase Troponin T C-Reactive Protein Total Protein Albumin Prealbumin Triglycerides Cholesterol LDL Cholesterol Direct HDL Cholesterol PTH Intact Urine pH Urine WBC (Auto) Urine Creatinine Urine Total Protein Fluid Total Protein Vancomycin Trough Rheumatoid Factor Complement C4 Miscellaneous Test Crossmatch 09/05/16 09/05/16 09/05/16 04:05 04:05 05:38 WBC RBC Hgb Hct MCV 76 L D MCH 23 L MCHC RDW 17.8 H Plt Count Lymph % (Auto) [place] % (Auto) Lymph # [place] # Baso # Seg Neutrophils % Seg Neuts % (Manual) Lymphocytes % (Manual) Monocytes % (Manual) Eosinophils % (Manual) Basophils % (Manual) Nucleated RBC % Seg Neutrophils # Seg Neutrophils # Man Lymphocytes # (Manual) Monocytes # (Manual) Eosinophils # (Manual) Basophils # (Manual) PT INR Fibrinogen dRVVT Confirm Interp Factor V Activity POC ABG pH POC ABG pCO2 POC ABG pO2 ABG pO2 ABG HCO3 ABG Base Excess ABG Hemoglobin Oxyhemoglobin Sodium 134 L Potassium Chloride Carbon Dioxide 18 L BUN Creatinine 1.8 H Glucose 192 H POC Glucose 175 H Lactic Acid Calcium Phosphorus Magnesium Direct Bilirubin AST ALT Alkaline Phosphatase Lactate Dehydrogenase Troponin T C-Reactive Protein Total Protein Albumin Prealbumin Triglycerides Cholesterol LDL Cholesterol Direct HDL Cholesterol PTH Intact Urine pH Urine WBC (Auto) Urine Creatinine Urine Total Protein Fluid Total Protein Vancomycin Trough Rheumatoid Factor Complement C4 Miscellaneous Test Crossmatch 09/05/16 09/05/16 09/05/16 11:38 17:48 23:22 WBC RBC Hgb Hct MCV MCH MCHC RDW Plt Count Lymph % (Auto) [place] % (Auto) Lymph # [place] # Baso # Seg Neutrophils % Seg Neuts % (Manual) Lymphocytes % (Manual) Monocytes % (Manual) Eosinophils % (Manual) Basophils % (Manual) Nucleated RBC % Seg Neutrophils # Seg Neutrophils # Man Lymphocytes # (Manual) Monocytes # (Manual) Eosinophils # (Manual) Basophils # (Manual) PT INR Fibrinogen dRVVT Confirm Interp Factor V Activity POC ABG pH POC ABG pCO2 POC ABG pO2 ABG pO2 ABG HCO3 ABG Base Excess ABG Hemoglobin Oxyhemoglobin Sodium Potassium Chloride Carbon Dioxide BUN Creatinine Glucose POC Glucose 164 H 186 H 195 H Lactic Acid Calcium Phosphorus Magnesium Direct Bilirubin AST ALT Alkaline Phosphatase Lactate Dehydrogenase Troponin T C-Reactive Protein Total Protein Albumin Prealbumin Triglycerides Cholesterol LDL Cholesterol Direct HDL Cholesterol PTH Intact Urine pH Urine WBC (Auto) Urine Creatinine Urine Total Protein Fluid Total Protein Vancomycin Trough Rheumatoid Factor Complement C4 Miscellaneous Test Crossmatch 09/06/16 09/06/16 09/06/16 04:12 05:59 07:32 WBC RBC Hgb Hct MCV MCH MCHC RDW Plt Count Lymph % (Auto) [place] % (Auto) Lymph # [place] # Baso # Seg Neutrophils % Seg Neuts % (Manual) Lymphocytes % (Manual) Monocytes % (Manual) Eosinophils % (Manual) Basophils % (Manual) Nucleated RBC % Seg Neutrophils # Seg Neutrophils # Man Lymphocytes # (Manual) Monocytes # (Manual) Eosinophils # (Manual) Basophils # (Manual) PT INR Fibrinogen dRVVT Confirm Interp Factor V Activity POC ABG pH 7.514 H POC ABG pCO2 29.1 L POC ABG pO2 72 L ABG pO2 ABG HCO3 ABG Base Excess ABG Hemoglobin Oxyhemoglobin Sodium 133 L Potassium 3.4 L Chloride 94.9 L Carbon Dioxide 19 L BUN 30 H Creatinine 2.1 H Glucose 139 H POC Glucose 146 H Lactic Acid Calcium Phosphorus Magnesium Direct Bilirubin AST ALT Alkaline Phosphatase Lactate Dehydrogenase Troponin T C-Reactive Protein Total Protein Albumin Prealbumin Triglycerides Cholesterol LDL Cholesterol Direct HDL Cholesterol PTH Intact Urine pH Urine WBC (Auto) Urine Creatinine Urine Total Protein Fluid Total Protein Vancomycin Trough Rheumatoid Factor Complement C4 Miscellaneous Test Crossmatch 09/06/16 09/06/16 09/06/16 11:57 17:58 19:02 WBC RBC Hgb Hct MCV MCH MCHC RDW Plt Count Lymph % (Auto) [place] % (Auto) Lymph # [place] # Baso # Seg Neutrophils % Seg Neuts % (Manual) Lymphocytes % (Manual) Monocytes % (Manual) Eosinophils % (Manual) Basophils % (Manual) Nucleated RBC % Seg Neutrophils # Seg Neutrophils # Man Lymphocytes # (Manual) Monocytes # (Manual) Eosinophils # (Manual) Basophils # (Manual) PT INR Fibrinogen dRVVT Confirm Interp Factor V Activity POC ABG pH 7.465 H POC ABG pCO2 32.0 L POC ABG pO2 ABG pO2 ABG HCO3 ABG Base Excess ABG Hemoglobin Oxyhemoglobin Sodium Potassium Chloride Carbon Dioxide BUN Creatinine Glucose POC Glucose 165 H 160 H Lactic Acid Calcium Phosphorus Magnesium Direct Bilirubin AST ALT Alkaline Phosphatase Lactate Dehydrogenase Troponin T C-Reactive Protein Total Protein Albumin Prealbumin Triglycerides Cholesterol LDL Cholesterol Direct HDL Cholesterol PTH Intact Urine pH Urine WBC (Auto) Urine Creatinine Urine Total Protein Fluid Total Protein Vancomycin Trough Rheumatoid Factor Complement C4 Miscellaneous Test Crossmatch 09/06/16 09/07/16 09/07/16 23:45 02:47 02:47 WBC RBC Hgb Hct MCV MCH MCHC RDW Plt Count Lymph % (Auto) [place] % (Auto) Lymph # [place] # Baso # Seg Neutrophils % Seg Neuts % (Manual) Lymphocytes % (Manual) Monocytes % (Manual) Eosinophils % (Manual) Basophils % (Manual) Nucleated RBC % Seg Neutrophils # Seg Neutrophils # Man Lymphocytes # (Manual) Monocytes # (Manual) Eosinophils # (Manual) Basophils # (Manual) PT INR Fibrinogen dRVVT Confirm Interp Factor V Activity POC ABG pH POC ABG pCO2 POC ABG pO2 ABG pO2 ABG HCO3 ABG Base Excess ABG Hemoglobin Oxyhemoglobin Sodium Potassium Chloride Carbon Dioxide BUN Creatinine Glucose POC Glucose 204 H Lactic Acid Calcium Phosphorus Magnesium Direct Bilirubin AST ALT Alkaline Phosphatase Lactate Dehydrogenase Troponin T C-Reactive Protein Total Protein Albumin Prealbumin Triglycerides Cholesterol LDL Cholesterol Direct HDL Cholesterol PTH Intact Urine pH Urine WBC (Auto) 68.0 H Urine Creatinine 106.1 H Urine Total Protein Fluid Total Protein Vancomycin Trough Rheumatoid Factor Complement C4 Miscellaneous Test Crossmatch 09/07/16 09/07/16 09/07/16 04:50 06:19 06:39 WBC RBC Hgb Hct MCV MCH MCHC RDW Plt Count Lymph % (Auto) [place] % (Auto) Lymph # [place] # Baso # Seg Neutrophils % Seg Neuts % (Manual) Lymphocytes % (Manual) Monocytes % (Manual) Eosinophils % (Manual) Basophils % (Manual) Nucleated RBC % Seg Neutrophils # Seg Neutrophils # Man Lymphocytes # (Manual) Monocytes # (Manual) Eosinophils # (Manual) Basophils # (Manual) PT INR Fibrinogen dRVVT Confirm Interp Factor V Activity POC ABG pH 7.457 H POC ABG pCO2 32.1 L POC ABG pO2 76 L ABG pO2 ABG HCO3 ABG Base Excess ABG Hemoglobin Oxyhemoglobin Sodium 132 L Potassium Chloride 94.7 L Carbon Dioxide BUN 53 H Creatinine 2.9 H Glucose 151 H POC Glucose 149 H Lactic Acid Calcium Phosphorus Magnesium Direct Bilirubin AST ALT Alkaline Phosphatase Lactate Dehydrogenase Troponin T C-Reactive Protein Total Protein Albumin Prealbumin Triglycerides Cholesterol LDL Cholesterol Direct HDL Cholesterol PTH Intact Urine pH Urine WBC (Auto) Urine Creatinine Urine Total Protein Fluid Total Protein Vancomycin Trough Rheumatoid Factor Complement C4 Miscellaneous Test Crossmatch 09/07/16 09/07/16 09/07/16 09:20 11:43 11:43 WBC 19.4 H RBC Hgb 8.3 L Hct 26.4 L D MCV 72 L D MCH 22 L MCHC RDW 17.9 H Plt Count Lymph % (Auto) 8.5 L [place] % (Auto) Lymph # [place] # 1.0 H Baso # Seg Neutrophils % 85.8 H Seg Neuts % (Manual) Lymphocytes % (Manual) Monocytes % (Manual) Eosinophils % (Manual) Basophils % (Manual) Nucleated RBC % Seg Neutrophils # 16.6 H Seg Neutrophils # Man Lymphocytes # (Manual) Monocytes # (Manual) Eosinophils # (Manual) Basophils # (Manual) PT INR Fibrinogen dRVVT Confirm Interp Factor V Activity POC ABG pH POC ABG pCO2 POC ABG pO2 ABG pO2 ABG HCO3 ABG Base Excess ABG Hemoglobin Oxyhemoglobin Sodium 134 L Potassium Chloride 97.2 L Carbon Dioxide 20 L BUN 58 H Creatinine 2.9 H Glucose 147 H POC Glucose Lactic Acid Calcium Phosphorus 2.40 L Magnesium 2.40 H Direct Bilirubin AST ALT Alkaline Phosphatase Lactate Dehydrogenase Troponin T C-Reactive Protein Total Protein 5.8 L Albumin 2.2 L Prealbumin Triglycerides Cholesterol LDL Cholesterol Direct HDL Cholesterol PTH Intact Urine pH Urine WBC (Auto) Urine Creatinine Urine Total Protein Fluid Total Protein Vancomycin Trough Rheumatoid Factor Complement C4 58 H Miscellaneous Test Crossmatch 09/07/16 09/07/16 09/07/16 11:50 16:00 17:31 WBC RBC Hgb Hct MCV MCH MCHC RDW Plt Count Lymph % (Auto) [place] % (Auto) Lymph # [place] # Baso # Seg Neutrophils % Seg Neuts % (Manual) Lymphocytes % (Manual) Monocytes % (Manual) Eosinophils % (Manual) Basophils % (Manual) Nucleated RBC % Seg Neutrophils # Seg Neutrophils # Man Lymphocytes # (Manual) Monocytes # (Manual) Eosinophils # (Manual) Basophils # (Manual) PT INR Fibrinogen dRVVT Confirm Interp Factor V Activity POC ABG pH POC ABG pCO2 POC ABG pO2 158 H ABG pO2 ABG HCO3 ABG Base Excess ABG Hemoglobin Oxyhemoglobin Sodium Potassium Chloride Carbon Dioxide BUN Creatinine Glucose POC Glucose 175 H Lactic Acid Calcium Phosphorus Magnesium Direct Bilirubin AST ALT Alkaline Phosphatase Lactate Dehydrogenase Troponin T C-Reactive Protein Total Protein Albumin Prealbumin Triglycerides Cholesterol LDL Cholesterol Direct HDL Cholesterol PTH Intact Urine pH Urine WBC (Auto) Urine Creatinine 66.3 H Urine Total Protein Fluid Total Protein Vancomycin Trough Rheumatoid Factor Complement C4 Miscellaneous Test Crossmatch 09/07/16 09/08/16 09/08/16 23:50 05:46 06:18 WBC 17.8 H RBC 3.58 L Hgb 8.1 L Hct 25.5 L MCV 71 L MCH 23 L MCHC RDW 18.4 H Plt Count Lymph % (Auto) [place] % (Auto) Lymph # [place] # Baso # Seg Neutrophils % Seg Neuts % (Manual) 92.0 H Lymphocytes % (Manual) 6.0 L Monocytes % (Manual) Eosinophils % (Manual) Basophils % (Manual) Nucleated RBC % Seg Neutrophils # Seg Neutrophils # Man 16.4 H Lymphocytes # (Manual) 1.1 L Monocytes # (Manual) Eosinophils # (Manual) Basophils # (Manual) PT INR Fibrinogen dRVVT Confirm Interp Factor V Activity POC ABG pH POC ABG pCO2 34.3 L POC ABG pO2 71 L ABG pO2 ABG HCO3 ABG Base Excess ABG Hemoglobin Oxyhemoglobin Sodium Potassium Chloride Carbon Dioxide BUN Creatinine Glucose POC Glucose 216 H Lactic Acid Calcium Phosphorus Magnesium Direct Bilirubin AST ALT Alkaline Phosphatase Lactate Dehydrogenase Troponin T C-Reactive Protein Total Protein Albumin Prealbumin Triglycerides Cholesterol LDL Cholesterol Direct HDL Cholesterol PTH Intact Urine pH Urine WBC (Auto) Urine Creatinine Urine Total Protein Fluid Total Protein Vancomycin Trough Rheumatoid Factor Complement C4 Miscellaneous Test Crossmatch 09/08/16 09/08/16 09/08/16 06:18 06:51 10:55 WBC RBC Hgb Hct MCV MCH MCHC RDW Plt Count Lymph % (Auto) [place] % (Auto) Lymph # [place] # Baso # Seg Neutrophils % Seg Neuts % (Manual) Lymphocytes % (Manual) Monocytes % (Manual) Eosinophils % (Manual) Basophils % (Manual) Nucleated RBC % Seg Neutrophils # Seg Neutrophils # Man Lymphocytes # (Manual) Monocytes # (Manual) Eosinophils # (Manual) Basophils # (Manual) PT INR Fibrinogen dRVVT Confirm Interp Factor V Activity POC ABG pH POC ABG pCO2 POC ABG pO2 ABG pO2 ABG HCO3 ABG Base Excess ABG Hemoglobin Oxyhemoglobin Sodium 133 L Potassium Chloride 96.9 L Carbon Dioxide 20 L BUN 63 H Creatinine 2.7 H Glucose 195 H POC Glucose 204 H 169 H Lactic Acid Calcium Phosphorus Magnesium Direct Bilirubin AST ALT Alkaline Phosphatase Lactate Dehydrogenase Troponin T C-Reactive Protein Total Protein Albumin Prealbumin Triglycerides Cholesterol LDL Cholesterol Direct HDL Cholesterol PTH Intact Urine pH Urine WBC (Auto) Urine Creatinine Urine Total Protein Fluid Total Protein Vancomycin Trough Rheumatoid Factor Complement C4 Miscellaneous Test Crossmatch 09/08/16 09/08/16 09/08/16 11:48 11:48 11:48 WBC RBC Hgb Hct MCV MCH MCHC RDW Plt Count Lymph % (Auto) [place] % (Auto) Lymph # [place] # Baso # Seg Neutrophils % Seg Neuts % (Manual) Lymphocytes % (Manual) Monocytes % (Manual) Eosinophils % (Manual) Basophils % (Manual) Nucleated RBC % Seg Neutrophils # Seg Neutrophils # Man Lymphocytes # (Manual) Monocytes # (Manual) Eosinophils # (Manual) Basophils # (Manual) PT INR Fibrinogen 750 H dRVVT Confirm Interp Factor V Activity POC ABG pH POC ABG pCO2 POC ABG pO2 ABG pO2 ABG HCO3 ABG Base Excess ABG Hemoglobin Oxyhemoglobin Sodium Potassium Chloride Carbon Dioxide BUN Creatinine Glucose POC Glucose Lactic Acid Calcium Phosphorus Magnesium Direct Bilirubin AST ALT Alkaline Phosphatase Lactate Dehydrogenase Troponin T C-Reactive Protein 15.70 H Total Protein Albumin Prealbumin Triglycerides Cholesterol LDL Cholesterol Direct HDL Cholesterol PTH Intact Urine pH Urine WBC (Auto) Urine Creatinine Urine Total Protein Fluid Total Protein Vancomycin Trough Rheumatoid Factor 24 H Complement C4 Miscellaneous Test Crossmatch 09/08/16 09/08/16 09/09/16 15:35 18:25 00:24 WBC RBC Hgb Hct MCV MCH MCHC RDW Plt Count Lymph % (Auto) [place] % (Auto) Lymph # [place] # Baso # Seg Neutrophils % Seg Neuts % (Manual) Lymphocytes % (Manual) Monocytes % (Manual) Eosinophils % (Manual) Basophils % (Manual) Nucleated RBC % Seg Neutrophils # Seg Neutrophils # Man Lymphocytes # (Manual) Monocytes # (Manual) Eosinophils # (Manual) Basophils # (Manual) PT INR Fibrinogen dRVVT Confirm Interp Factor V Activity 182 H POC ABG pH POC ABG pCO2 POC ABG pO2 ABG pO2 ABG HCO3 ABG Base Excess ABG Hemoglobin Oxyhemoglobin Sodium Potassium Chloride Carbon Dioxide BUN Creatinine Glucose POC Glucose 184 H 216 H Lactic Acid Calcium Phosphorus Magnesium Direct Bilirubin AST ALT Alkaline Phosphatase Lactate Dehydrogenase Troponin T C-Reactive Protein Total Protein Albumin Prealbumin Triglycerides Cholesterol LDL Cholesterol Direct HDL Cholesterol PTH Intact Urine pH Urine WBC (Auto) Urine Creatinine Urine Total Protein Fluid Total Protein Vancomycin Trough Rheumatoid Factor Complement C4 Miscellaneous Test Crossmatch 09/09/16 09/09/16 09/09/16 03:00 03:00 04:04 WBC 27.9 H RBC Hgb 8.7 L Hct 28.1 L MCV 72 L MCH 22 L MCHC RDW 18.4 H Plt Count 485 H Lymph % (Auto) [place] % (Auto) Lymph # [place] # Baso # Seg Neutrophils % Seg Neuts % (Manual) 77.0 H Lymphocytes % (Manual) 9.0 L Monocytes % (Manual) Eosinophils % (Manual) Basophils % (Manual) Nucleated RBC % Seg Neutrophils # Seg Neutrophils # Man 21.5 H Lymphocytes # (Manual) Monocytes # (Manual) 2.0 H Eosinophils # (Manual) Basophils # (Manual) PT INR Fibrinogen dRVVT Confirm Interp Factor V Activity POC ABG pH POC ABG pCO2 POC ABG pO2 121 H ABG pO2 ABG HCO3 ABG Base Excess ABG Hemoglobin Oxyhemoglobin Sodium 135 L Potassium Chloride 96.3 L Carbon Dioxide 21 L BUN 83 H Creatinine 3.0 H Glucose 135 H POC Glucose Lactic Acid Calcium Phosphorus Magnesium Direct Bilirubin AST ALT Alkaline Phosphatase Lactate Dehydrogenase Troponin T C-Reactive Protein Total Protein Albumin Prealbumin Triglycerides Cholesterol LDL Cholesterol Direct HDL Cholesterol PTH Intact Urine pH Urine WBC (Auto) Urine Creatinine Urine Total Protein Fluid Total Protein Vancomycin Trough Rheumatoid Factor Complement C4 Miscellaneous Test Crossmatch 09/09/16 09/09/16 09/09/16 05:41 11:55 14:13 WBC RBC Hgb Hct MCV MCH MCHC RDW Plt Count Lymph % (Auto) [place] % (Auto) Lymph # [place] # Baso # Seg Neutrophils % Seg Neuts % (Manual) Lymphocytes % (Manual) Monocytes % (Manual) Eosinophils % (Manual) Basophils % (Manual) Nucleated RBC % Seg Neutrophils # Seg Neutrophils # Man Lymphocytes # (Manual) Monocytes # (Manual) Eosinophils # (Manual) Basophils # (Manual) PT INR Fibrinogen dRVVT Confirm Interp Factor V Activity POC ABG pH POC ABG pCO2 POC ABG pO2 ABG pO2 ABG HCO3 ABG Base Excess ABG Hemoglobin Oxyhemoglobin Sodium Potassium Chloride Carbon Dioxide BUN Creatinine Glucose POC Glucose 155 H 186 H Lactic Acid Calcium Phosphorus Magnesium Direct Bilirubin AST ALT Alkaline Phosphatase Lactate Dehydrogenase Troponin T C-Reactive Protein Total Protein Albumin Prealbumin Triglycerides Cholesterol LDL Cholesterol Direct HDL Cholesterol PTH Intact Urine pH Urine WBC (Auto) 25.0 H Urine Creatinine Urine Total Protein Fluid Total Protein Vancomycin Trough Rheumatoid Factor Complement C4 Miscellaneous Test Crossmatch 09/09/16 09/09/16 09/10/16 17:33 23:13 05:09 WBC RBC Hgb Hct MCV MCH MCHC RDW Plt Count Lymph % (Auto) [place] % (Auto) Lymph # [place] # Baso # Seg Neutrophils % Seg Neuts % (Manual) Lymphocytes % (Manual) Monocytes % (Manual) Eosinophils % (Manual) Basophils % (Manual) Nucleated RBC % Seg Neutrophils # Seg Neutrophils # Man Lymphocytes # (Manual) Monocytes # (Manual) Eosinophils # (Manual) Basophils # (Manual) PT INR Fibrinogen dRVVT Confirm Interp Factor V Activity POC ABG pH POC ABG pCO2 POC ABG pO2 74 L ABG pO2 ABG HCO3 ABG Base Excess ABG Hemoglobin Oxyhemoglobin Sodium Potassium Chloride Carbon Dioxide BUN Creatinine Glucose POC Glucose 211 H 215 H Lactic Acid Calcium Phosphorus Magnesium Direct Bilirubin AST ALT Alkaline Phosphatase Lactate Dehydrogenase Troponin T C-Reactive Protein Total Protein Albumin Prealbumin Triglycerides Cholesterol LDL Cholesterol Direct HDL Cholesterol PTH Intact Urine pH Urine WBC (Auto) Urine Creatinine Urine Total Protein Fluid Total Protein Vancomycin Trough Rheumatoid Factor Complement C4 Miscellaneous Test Crossmatch 09/10/16 09/10/16 09/10/16 05:17 05:17 11:31 WBC 15.8 H RBC 3.25 L Hgb 7.3 L Hct 22.9 L MCV 71 L MCH 23 L MCHC RDW 18.4 H Plt Count Lymph % (Auto) [place] % (Auto) Lymph # [place] # Baso # Seg Neutrophils % Seg Neuts % (Manual) 91.0 H Lymphocytes % (Manual) 4.0 L Monocytes % (Manual) Eosinophils % (Manual) Basophils % (Manual) Nucleated RBC % Seg Neutrophils # Seg Neutrophils # Man 14.4 H Lymphocytes # (Manual) 0.6 L Monocytes # (Manual) Eosinophils # (Manual) Basophils # (Manual) PT INR Fibrinogen dRVVT Confirm Interp Factor V Activity POC ABG pH POC ABG pCO2 POC ABG pO2 ABG pO2 ABG HCO3 ABG Base Excess ABG Hemoglobin Oxyhemoglobin Sodium Potassium Chloride Carbon Dioxide 21 L BUN 93 H Creatinine 2.9 H Glucose 146 H POC Glucose 188 H Lactic Acid Calcium 8.1 L Phosphorus Magnesium Direct Bilirubin AST ALT Alkaline Phosphatase Lactate Dehydrogenase Troponin T C-Reactive Protein Total Protein Albumin Prealbumin Triglycerides Cholesterol LDL Cholesterol Direct HDL Cholesterol PTH Intact Urine pH Urine WBC (Auto) Urine Creatinine Urine Total Protein Fluid Total Protein Vancomycin Trough Rheumatoid Factor Complement C4 Miscellaneous Test Crossmatch 09/10/16 09/10/16 09/10/16 13:17 17:20 23:32 WBC RBC Hgb Hct MCV MCH MCHC RDW Plt Count Lymph % (Auto) [place] % (Auto) Lymph # [place] # Baso # Seg Neutrophils % Seg Neuts % (Manual) Lymphocytes % (Manual) Monocytes % (Manual) Eosinophils % (Manual) Basophils % (Manual) Nucleated RBC % Seg Neutrophils # Seg Neutrophils # Man Lymphocytes # (Manual) Monocytes # (Manual) Eosinophils # (Manual) Basophils # (Manual) PT INR Fibrinogen dRVVT Confirm Interp Factor V Activity POC ABG pH POC ABG pCO2 POC ABG pO2 ABG pO2 ABG HCO3 ABG Base Excess ABG Hemoglobin Oxyhemoglobin Sodium Potassium Chloride Carbon Dioxide BUN Creatinine Glucose POC Glucose 199 H 186 H Lactic Acid Calcium Phosphorus Magnesium Direct Bilirubin AST ALT Alkaline Phosphatase Lactate Dehydrogenase Troponin T C-Reactive Protein Total Protein Albumin Prealbumin Triglycerides Cholesterol LDL Cholesterol Direct HDL Cholesterol PTH Intact Urine pH Urine WBC (Auto) Urine Creatinine Urine Total Protein Fluid Total Protein Vancomycin Trough Rheumatoid Factor Complement C4 Miscellaneous Test Crossmatch See Detail 09/11/16 09/11/16 09/11/16 05:10 05:10 05:17 WBC 28.4 H RBC Hgb 9.2 L Hct 29.3 L D MCV 73 L MCH 23 L MCHC RDW 18.9 H Plt Count 452 H Lymph % (Auto) [place] % (Auto) Lymph # [place] # Baso # Seg Neutrophils % Seg Neuts % (Manual) 89.5 H Lymphocytes % (Manual) 2.0 L Monocytes % (Manual) Eosinophils % (Manual) Basophils % (Manual) Nucleated RBC % Seg Neutrophils # Seg Neutrophils # Man 25.4 H Lymphocytes # (Manual) 0.6 L Monocytes # (Manual) 1.3 H Eosinophils # (Manual) Basophils # (Manual) PT INR Fibrinogen dRVVT Confirm Interp Factor V Activity POC ABG pH POC ABG pCO2 POC ABG pO2 ABG pO2 ABG HCO3 ABG Base Excess ABG Hemoglobin Oxyhemoglobin Sodium 136 L Potassium Chloride Carbon Dioxide 18 L BUN 107 H Creatinine 2.6 H Glucose 187 H POC Glucose 230 H Lactic Acid Calcium 8.3 L Phosphorus Magnesium Direct Bilirubin AST ALT Alkaline Phosphatase Lactate Dehydrogenase Troponin T C-Reactive Protein Total Protein Albumin Prealbumin Triglycerides Cholesterol LDL Cholesterol Direct HDL Cholesterol PTH Intact Urine pH Urine WBC (Auto) Urine Creatinine Urine Total Protein Fluid Total Protein Vancomycin Trough Rheumatoid Factor Complement C4 Miscellaneous Test Crossmatch 09/11/16 09/11/16 09/11/16 05:55 12:02 17:32 WBC RBC Hgb Hct MCV MCH MCHC RDW Plt Count Lymph % (Auto) [place] % (Auto) Lymph # [place] # Baso # Seg Neutrophils % Seg Neuts % (Manual) Lymphocytes % (Manual) Monocytes % (Manual) Eosinophils % (Manual) Basophils % (Manual) Nucleated RBC % Seg Neutrophils # Seg Neutrophils # Man Lymphocytes # (Manual) Monocytes # (Manual) Eosinophils # (Manual) Basophils # (Manual) PT INR Fibrinogen dRVVT Confirm Interp Factor V Activity POC ABG pH POC ABG pCO2 33.8 L POC ABG pO2 ABG pO2 ABG HCO3 ABG Base Excess ABG Hemoglobin Oxyhemoglobin Sodium Potassium Chloride Carbon Dioxide BUN Creatinine Glucose POC Glucose 191 H 239 H Lactic Acid Calcium Phosphorus Magnesium Direct Bilirubin AST ALT Alkaline Phosphatase Lactate Dehydrogenase Troponin T C-Reactive Protein Total Protein Albumin Prealbumin Triglycerides Cholesterol LDL Cholesterol Direct HDL Cholesterol PTH Intact Urine pH Urine WBC (Auto) Urine Creatinine Urine Total Protein Fluid Total Protein Vancomycin Trough Rheumatoid Factor Complement C4 Miscellaneous Test Crossmatch 09/11/16 09/12/16 09/12/16 23:52 05:09 05:32 WBC RBC Hgb Hct MCV MCH MCHC RDW Plt Count Lymph % (Auto) [place] % (Auto) Lymph # [place] # Baso # Seg Neutrophils % Seg Neuts % (Manual) Lymphocytes % (Manual) Monocytes % (Manual) Eosinophils % (Manual) Basophils % (Manual) Nucleated RBC % Seg Neutrophils # Seg Neutrophils # Man Lymphocytes # (Manual) Monocytes # (Manual) Eosinophils # (Manual) Basophils # (Manual) PT INR Fibrinogen dRVVT Confirm Interp Factor V Activity POC ABG pH POC ABG pCO2 34.6 L POC ABG pO2 ABG pO2 ABG HCO3 ABG Base Excess ABG Hemoglobin Oxyhemoglobin Sodium Potassium Chloride Carbon Dioxide BUN Creatinine Glucose POC Glucose 265 H 184 H Lactic Acid Calcium Phosphorus Magnesium Direct Bilirubin AST ALT Alkaline Phosphatase Lactate Dehydrogenase Troponin T C-Reactive Protein Total Protein Albumin Prealbumin Triglycerides Cholesterol LDL Cholesterol Direct HDL Cholesterol PTH Intact Urine pH Urine WBC (Auto) Urine Creatinine Urine Total Protein Fluid Total Protein Vancomycin Trough Rheumatoid Factor Complement C4 Miscellaneous Test Crossmatch 09/12/16 09/12/16 09/12/16 06:45 06:45 07:22 WBC 31.7 H RBC 3.54 L Hgb 8.3 L Hct 25.9 L MCV 73 L MCH 23 L MCHC RDW 18.9 H Plt Count Lymph % (Auto) [place] % (Auto) Lymph # [place] # Baso # Seg Neutrophils % Seg Neuts % (Manual) 88.5 H Lymphocytes % (Manual) 4.5 L Monocytes % (Manual) Eosinophils % (Manual) Basophils % (Manual) Nucleated RBC % Seg Neutrophils # Seg Neutrophils # Man 28.1 H Lymphocytes # (Manual) Monocytes # (Manual) 1.0 H Eosinophils # (Manual) Basophils # (Manual) PT INR Fibrinogen dRVVT Confirm Interp Factor V Activity POC ABG pH POC ABG pCO2 POC ABG pO2 ABG pO2 ABG HCO3 ABG Base Excess ABG Hemoglobin Oxyhemoglobin Sodium Potassium Chloride Carbon Dioxide 20 L BUN 115 H Creatinine 2.7 H Glucose 165 H POC Glucose Lactic Acid Calcium 8.0 L Phosphorus Magnesium Direct Bilirubin AST ALT Alkaline Phosphatase Lactate Dehydrogenase Troponin T C-Reactive Protein Total Protein Albumin Prealbumin Triglycerides 217 H Cholesterol LDL Cholesterol Direct HDL Cholesterol PTH Intact Urine pH Urine WBC (Auto) Urine Creatinine Urine Total Protein Fluid Total Protein Vancomycin Trough Rheumatoid Factor Complement C4 Miscellaneous Test Crossmatch 09/12/16 09/12/16 09/12/16 07:22 09:59 12:21 WBC RBC Hgb Hct MCV MCH MCHC RDW Plt Count Lymph % (Auto) [place] % (Auto) Lymph # [place] # Baso # Seg Neutrophils % Seg Neuts % (Manual) Lymphocytes % (Manual) Monocytes % (Manual) Eosinophils % (Manual) Basophils % (Manual) Nucleated RBC % Seg Neutrophils # Seg Neutrophils # Man Lymphocytes # (Manual) Monocytes # (Manual) Eosinophils # (Manual) Basophils # (Manual) PT INR Fibrinogen dRVVT Confirm Interp Positive H Factor V Activity POC ABG pH POC ABG pCO2 POC ABG pO2 ABG pO2 ABG HCO3 ABG Base Excess ABG Hemoglobin Oxyhemoglobin Sodium Potassium Chloride Carbon Dioxide BUN Creatinine Glucose POC Glucose 224 H Lactic Acid Calcium Phosphorus Magnesium Direct Bilirubin AST ALT Alkaline Phosphatase Lactate Dehydrogenase Troponin T C-Reactive Protein 1.70 H Total Protein Albumin Prealbumin Triglycerides Cholesterol LDL Cholesterol Direct HDL Cholesterol PTH Intact Urine pH Urine WBC (Auto) Urine Creatinine Urine Total Protein Fluid Total Protein Vancomycin Trough Rheumatoid Factor Complement C4 Miscellaneous Test Crossmatch 09/12/16 09/12/16 09/13/16 16:51 23:28 04:00 WBC 45.0 H* RBC Hgb 9.4 L Hct MCV 75 L MCH 23 L MCHC RDW 19.0 H Plt Count 470 H Lymph % (Auto) [place] % (Auto) Lymph # [place] # Baso # Seg Neutrophils % Seg Neuts % (Manual) 89.0 H Lymphocytes % (Manual) 5.0 L Monocytes % (Manual) Eosinophils % (Manual) Basophils % (Manual) Nucleated RBC % Seg Neutrophils # Seg Neutrophils # Man 40.1 H Lymphocytes # (Manual) Monocytes # (Manual) Eosinophils # (Manual) Basophils # (Manual) PT INR Fibrinogen dRVVT Confirm Interp Factor V Activity POC ABG pH POC ABG pCO2 POC ABG pO2 ABG pO2 ABG HCO3 ABG Base Excess ABG Hemoglobin Oxyhemoglobin Sodium Potassium Chloride Carbon Dioxide BUN Creatinine Glucose POC Glucose 169 H 150 H Lactic Acid Calcium Phosphorus Magnesium Direct Bilirubin AST ALT Alkaline Phosphatase Lactate Dehydrogenase Troponin T C-Reactive Protein Total Protein Albumin Prealbumin Triglycerides Cholesterol LDL Cholesterol Direct HDL Cholesterol PTH Intact Urine pH Urine WBC (Auto) Urine Creatinine Urine Total Protein Fluid Total Protein Vancomycin Trough Rheumatoid Factor Complement C4 Miscellaneous Test Crossmatch 09/13/16 09/13/16 09/13/16 04:00 11:26 17:31 WBC RBC Hgb Hct MCV MCH MCHC RDW Plt Count Lymph % (Auto) [place] % (Auto) Lymph # [place] # Baso # Seg Neutrophils % Seg Neuts % (Manual) Lymphocytes % (Manual) Monocytes % (Manual) Eosinophils % (Manual) Basophils % (Manual) Nucleated RBC % Seg Neutrophils # Seg Neutrophils # Man Lymphocytes # (Manual) Monocytes # (Manual) Eosinophils # (Manual) Basophils # (Manual) PT INR Fibrinogen dRVVT Confirm Interp Factor V Activity POC ABG pH POC ABG pCO2 POC ABG pO2 ABG pO2 ABG HCO3 ABG Base Excess ABG Hemoglobin Oxyhemoglobin Sodium Potassium Chloride Carbon Dioxide 20 L BUN 116 H Creatinine 3.0 H Glucose 172 H POC Glucose 140 H 183 H Lactic Acid Calcium Phosphorus Magnesium Direct Bilirubin AST ALT Alkaline Phosphatase Lactate Dehydrogenase Troponin T C-Reactive Protein Total Protein 6.2 L Albumin 2.9 L Prealbumin Triglycerides Cholesterol LDL Cholesterol Direct HDL Cholesterol PTH Intact Urine pH Urine WBC (Auto) Urine Creatinine Urine Total Protein Fluid Total Protein Vancomycin Trough Rheumatoid Factor Complement C4 Miscellaneous Test Crossmatch 09/13/16 09/14/16 09/14/16 23:23 04:06 04:07 WBC 29.4 H RBC Hgb 8.9 L Hct 27.3 L MCV 75 L MCH 24 L MCHC RDW 19.1 H Plt Count Lymph % (Auto) [place] % (Auto) Lymph # [place] # Baso # Seg Neutrophils % Seg Neuts % (Manual) 84.0 H Lymphocytes % (Manual) 6.0 L Monocytes % (Manual) 9.0 H Eosinophils % (Manual) Basophils % (Manual) Nucleated RBC % Seg Neutrophils # Seg Neutrophils # Man 24.7 H Lymphocytes # (Manual) Monocytes # (Manual) 2.6 H Eosinophils # (Manual) Basophils # (Manual) PT INR Fibrinogen dRVVT Confirm Interp Factor V Activity POC ABG pH 7.342 L POC ABG pCO2 POC ABG pO2 116 H ABG pO2 ABG HCO3 ABG Base Excess ABG Hemoglobin Oxyhemoglobin Sodium Potassium Chloride Carbon Dioxide BUN Creatinine Glucose POC Glucose 154 H Lactic Acid Calcium Phosphorus Magnesium Direct Bilirubin AST ALT Alkaline Phosphatase Lactate Dehydrogenase Troponin T C-Reactive Protein Total Protein Albumin Prealbumin Triglycerides Cholesterol LDL Cholesterol Direct HDL Cholesterol PTH Intact Urine pH Urine WBC (Auto) Urine Creatinine Urine Total Protein Fluid Total Protein Vancomycin Trough Rheumatoid Factor Complement C4 Miscellaneous Test Crossmatch 09/14/16 09/14/16 09/14/16 04:07 05:29 12:19 WBC RBC Hgb Hct MCV MCH MCHC RDW Plt Count Lymph % (Auto) [place] % (Auto) Lymph # [place] # Baso # Seg Neutrophils % Seg Neuts % (Manual) Lymphocytes % (Manual) Monocytes % (Manual) Eosinophils % (Manual) Basophils % (Manual) Nucleated RBC % Seg Neutrophils # Seg Neutrophils # Man Lymphocytes # (Manual) Monocytes # (Manual) Eosinophils # (Manual) Basophils # (Manual) PT INR Fibrinogen dRVVT Confirm Interp Factor V Activity POC ABG pH POC ABG pCO2 POC ABG pO2 ABG pO2 ABG HCO3 ABG Base Excess ABG Hemoglobin Oxyhemoglobin Sodium 136 L Potassium Chloride Carbon Dioxide 18 L BUN 121 H Creatinine 2.8 H Glucose 214 H POC Glucose 239 H 181 H Lactic Acid Calcium Phosphorus Magnesium Direct Bilirubin AST ALT Alkaline Phosphatase Lactate Dehydrogenase Troponin T C-Reactive Protein Total Protein Albumin Prealbumin Triglycerides Cholesterol LDL Cholesterol Direct HDL Cholesterol PTH Intact Urine pH Urine WBC (Auto) Urine Creatinine Urine Total Protein Fluid Total Protein Vancomycin Trough Rheumatoid Factor Complement C4 Miscellaneous Test Crossmatch 09/14/16 09/14/16 09/15/16 18:12 23:37 05:00 WBC 26.1 H RBC 3.05 L Hgb 7.2 L Hct 22.9 L MCV 75 L MCH 24 L MCHC RDW 19.0 H Plt Count Lymph % (Auto) [place] % (Auto) Lymph # [place] # Baso # Seg Neutrophils % Seg Neuts % (Manual) Lymphocytes % (Manual) Monocytes % (Manual) Eosinophils % (Manual) Basophils % (Manual) Nucleated RBC % Seg Neutrophils # Seg Neutrophils # Man Lymphocytes # (Manual) Monocytes # (Manual) Eosinophils # (Manual) Basophils # (Manual) PT INR Fibrinogen dRVVT Confirm Interp Factor V Activity POC ABG pH POC ABG pCO2 POC ABG pO2 ABG pO2 ABG HCO3 ABG Base Excess ABG Hemoglobin Oxyhemoglobin Sodium Potassium Chloride Carbon Dioxide BUN Creatinine Glucose POC Glucose 266 H 154 H Lactic Acid Calcium Phosphorus Magnesium Direct Bilirubin AST ALT Alkaline Phosphatase Lactate Dehydrogenase Troponin T C-Reactive Protein Total Protein Albumin Prealbumin Triglycerides Cholesterol LDL Cholesterol Direct HDL Cholesterol PTH Intact Urine pH Urine WBC (Auto) Urine Creatinine Urine Total Protein Fluid Total Protein Vancomycin Trough Rheumatoid Factor Complement C4 Miscellaneous Test Crossmatch 09/15/16 09/15/16 09/15/16 05:00 05:17 12:45 WBC RBC Hgb Hct MCV MCH MCHC RDW Plt Count Lymph % (Auto) [place] % (Auto) Lymph # [place] # Baso # Seg Neutrophils % Seg Neuts % (Manual) Lymphocytes % (Manual) Monocytes % (Manual) Eosinophils % (Manual) Basophils % (Manual) Nucleated RBC % Seg Neutrophils # Seg Neutrophils # Man Lymphocytes # (Manual) Monocytes # (Manual) Eosinophils # (Manual) Basophils # (Manual) PT INR Fibrinogen dRVVT Confirm Interp Factor V Activity POC ABG pH POC ABG pCO2 POC ABG pO2 ABG pO2 ABG HCO3 ABG Base Excess ABG Hemoglobin Oxyhemoglobin Sodium Potassium 5.2 H Chloride Carbon Dioxide 18 L BUN 139 H Creatinine 3.7 H Glucose 227 H POC Glucose 226 H 244 H Lactic Acid Calcium 8.3 L Phosphorus Magnesium Direct Bilirubin AST ALT Alkaline Phosphatase Lactate Dehydrogenase Troponin T C-Reactive Protein Total Protein Albumin Prealbumin Triglycerides Cholesterol LDL Cholesterol Direct HDL Cholesterol PTH Intact Urine pH Urine WBC (Auto) Urine Creatinine Urine Total Protein Fluid Total Protein Vancomycin Trough Rheumatoid Factor Complement C4 Miscellaneous Test Crossmatch 09/15/16 09/15/16 09/15/16 14:32 17:33 23:35 WBC RBC Hgb Hct MCV MCH MCHC RDW Plt Count Lymph % (Auto) [place] % (Auto) Lymph # [place] # Baso # Seg Neutrophils % Seg Neuts % (Manual) Lymphocytes % (Manual) Monocytes % (Manual) Eosinophils % (Manual) Basophils % (Manual) Nucleated RBC % Seg Neutrophils # Seg Neutrophils # Man Lymphocytes # (Manual) Monocytes # (Manual) Eosinophils # (Manual) Basophils # (Manual) PT INR Fibrinogen dRVVT Confirm Interp Factor V Activity POC ABG pH POC ABG pCO2 27.7 L POC ABG pO2 120 H ABG pO2 ABG HCO3 ABG Base Excess ABG Hemoglobin Oxyhemoglobin Sodium Potassium Chloride Carbon Dioxide BUN Creatinine Glucose POC Glucose 232 H 167 H Lactic Acid Calcium Phosphorus Magnesium Direct Bilirubin AST ALT Alkaline Phosphatase Lactate Dehydrogenase Troponin T C-Reactive Protein Total Protein Albumin Prealbumin Triglycerides Cholesterol LDL Cholesterol Direct HDL Cholesterol PTH Intact Urine pH Urine WBC (Auto) Urine Creatinine Urine Total Protein Fluid Total Protein Vancomycin Trough Rheumatoid Factor Complement C4 Miscellaneous Test Crossmatch 09/16/16 09/16/16 09/16/16 03:58 10:27 10:27 WBC 19.0 H RBC 2.77 L Hgb 6.5 L Hct 20.9 L MCV 76 L MCH 23 L MCHC RDW 19.3 H Plt Count Lymph % (Auto) 11.0 L [place] % (Auto) Lymph # [place] # 1.1 H Baso # Seg Neutrophils % 82.5 H Seg Neuts % (Manual) Lymphocytes % (Manual) Monocytes % (Manual) Eosinophils % (Manual) Basophils % (Manual) Nucleated RBC % Seg Neutrophils # 15.7 H Seg Neutrophils # Man Lymphocytes # (Manual) Monocytes # (Manual) Eosinophils # (Manual) Basophils # (Manual) PT INR Fibrinogen dRVVT Confirm Interp Factor V Activity POC ABG pH POC ABG pCO2 POC ABG pO2 ABG pO2 ABG HCO3 ABG Base Excess ABG Hemoglobin Oxyhemoglobin Sodium Potassium Chloride 109.3 H Carbon Dioxide 18 L BUN 139 H Creatinine 4.1 H Glucose 144 H POC Glucose 146 H Lactic Acid Calcium 8.1 L Phosphorus Magnesium Direct Bilirubin AST ALT Alkaline Phosphatase Lactate Dehydrogenase Troponin T C-Reactive Protein Total Protein Albumin Prealbumin Triglycerides Cholesterol LDL Cholesterol Direct HDL Cholesterol PTH Intact Urine pH Urine WBC (Auto) Urine Creatinine Urine Total Protein Fluid Total Protein Vancomycin Trough Rheumatoid Factor Complement C4 Miscellaneous Test Crossmatch 09/16/16 09/16/16 09/16/16 12:04 12:10 13:55 WBC RBC Hgb Hct MCV MCH MCHC RDW Plt Count Lymph % (Auto) [place] % (Auto) Lymph # [place] # Baso # Seg Neutrophils % Seg Neuts % (Manual) Lymphocytes % (Manual) Monocytes % (Manual) Eosinophils % (Manual) Basophils % (Manual) Nucleated RBC % Seg Neutrophils # Seg Neutrophils # Man Lymphocytes # (Manual) Monocytes # (Manual) Eosinophils # (Manual) Basophils # (Manual) PT INR Fibrinogen dRVVT Confirm Interp Factor V Activity POC ABG pH POC ABG pCO2 32.9 L POC ABG pO2 ABG pO2 ABG HCO3 ABG Base Excess ABG Hemoglobin Oxyhemoglobin Sodium Potassium Chloride Carbon Dioxide BUN Creatinine Glucose POC Glucose 185 H Lactic Acid Calcium Phosphorus Magnesium Direct Bilirubin AST ALT Alkaline Phosphatase Lactate Dehydrogenase Troponin T C-Reactive Protein Total Protein Albumin Prealbumin Triglycerides Cholesterol LDL Cholesterol Direct HDL Cholesterol PTH Intact Urine pH Urine WBC (Auto) Urine Creatinine Urine Total Protein Fluid Total Protein Vancomycin Trough Rheumatoid Factor Complement C4 Miscellaneous Test Crossmatch See Detail 09/16/16 09/16/16 09/16/16 17:55 19:19 23:48 WBC RBC Hgb Hct MCV MCH MCHC RDW Plt Count Lymph % (Auto) [place] % (Auto) Lymph # [place] # Baso # Seg Neutrophils % Seg Neuts % (Manual) Lymphocytes % (Manual) Monocytes % (Manual) Eosinophils % (Manual) Basophils % (Manual) Nucleated RBC % Seg Neutrophils # Seg Neutrophils # Man Lymphocytes # (Manual) Monocytes # (Manual) Eosinophils # (Manual) Basophils # (Manual) PT INR Fibrinogen dRVVT Confirm Interp Factor V Activity POC ABG pH POC ABG pCO2 POC ABG pO2 ABG pO2 ABG HCO3 ABG Base Excess ABG Hemoglobin Oxyhemoglobin Sodium Potassium Chloride Carbon Dioxide BUN Creatinine Glucose POC Glucose 222 H 107 H Lactic Acid Calcium Phosphorus Magnesium Direct Bilirubin AST ALT Alkaline Phosphatase Lactate Dehydrogenase Troponin T C-Reactive Protein Total Protein Albumin Prealbumin Triglycerides Cholesterol LDL Cholesterol Direct HDL Cholesterol PTH Intact Urine pH Urine WBC (Auto) Urine Creatinine 47.4 H Urine Total Protein 16 H Fluid Total Protein Vancomycin Trough Rheumatoid Factor Complement C4 Miscellaneous Test Crossmatch 09/17/16 09/17/16 09/17/16 03:45 03:45 04:55 WBC 19.6 H RBC 3.41 L Hgb 8.5 L Hct 26.7 L MCV 78 L MCH 25 L MCHC RDW 19.9 H Plt Count Lymph % (Auto) 9.3 L [place] % (Auto) Lymph # [place] # 1.2 H Baso # Seg Neutrophils % 83.9 H Seg Neuts % (Manual) Lymphocytes % (Manual) Monocytes % (Manual) Eosinophils % (Manual) Basophils % (Manual) Nucleated RBC % Seg Neutrophils # 16.4 H Seg Neutrophils # Man Lymphocytes # (Manual) Monocytes # (Manual) Eosinophils # (Manual) Basophils # (Manual) PT INR Fibrinogen dRVVT Confirm Interp Factor V Activity POC ABG pH POC ABG pCO2 POC ABG pO2 ABG pO2 ABG HCO3 ABG Base Excess ABG Hemoglobin Oxyhemoglobin Sodium 146 H Potassium 5.1 H Chloride 110.9 H Carbon Dioxide 16 L BUN 146 H Creatinine 4.0 H Glucose 108 H POC Glucose 133 H Lactic Acid Calcium Phosphorus Magnesium 3.00 H Direct Bilirubin AST ALT Alkaline Phosphatase Lactate Dehydrogenase Troponin T C-Reactive Protein Total Protein Albumin Prealbumin Triglycerides Cholesterol LDL Cholesterol Direct HDL Cholesterol PTH Intact Urine pH Urine WBC (Auto) Urine Creatinine Urine Total Protein Fluid Total Protein Vancomycin Trough Rheumatoid Factor Complement C4 Miscellaneous Test Crossmatch 09/17/16 09/17/16 09/17/16 11:15 17:33 23:47 WBC RBC Hgb Hct MCV MCH MCHC RDW Plt Count Lymph % (Auto) [place] % (Auto) Lymph # [place] # Baso # Seg Neutrophils % Seg Neuts % (Manual) Lymphocytes % (Manual) Monocytes % (Manual) Eosinophils % (Manual) Basophils % (Manual) Nucleated RBC % Seg Neutrophils # Seg Neutrophils # Man Lymphocytes # (Manual) Monocytes # (Manual) Eosinophils # (Manual) Basophils # (Manual) PT INR Fibrinogen dRVVT Confirm Interp Factor V Activity POC ABG pH POC ABG pCO2 POC ABG pO2 ABG pO2 ABG HCO3 ABG Base Excess ABG Hemoglobin Oxyhemoglobin Sodium Potassium Chloride Carbon Dioxide BUN Creatinine Glucose POC Glucose 176 H 246 H 148 H Lactic Acid Calcium Phosphorus Magnesium Direct Bilirubin AST ALT Alkaline Phosphatase Lactate Dehydrogenase Troponin T C-Reactive Protein Total Protein Albumin Prealbumin Triglycerides Cholesterol LDL Cholesterol Direct HDL Cholesterol PTH Intact Urine pH Urine WBC (Auto) Urine Creatinine Urine Total Protein Fluid Total Protein Vancomycin Trough Rheumatoid Factor Complement C4 Miscellaneous Test Crossmatch 09/18/16 09/18/16 09/18/16 05:33 08:31 08:31 WBC 18.0 H RBC 3.17 L Hgb 9.0 L Hct 25.7 L MCV MCH MCHC 35 H RDW 20.4 H Plt Count Lymph % (Auto) [place] % (Auto) Lymph # [place] # Baso # Seg Neutrophils % Seg Neuts % (Manual) Lymphocytes % (Manual) Monocytes % (Manual) Eosinophils % (Manual) Basophils % (Manual) Nucleated RBC % Seg Neutrophils # Seg Neutrophils # Man Lymphocytes # (Manual) Monocytes # (Manual) Eosinophils # (Manual) Basophils # (Manual) PT INR Fibrinogen dRVVT Confirm Interp Factor V Activity POC ABG pH POC ABG pCO2 POC ABG pO2 ABG pO2 ABG HCO3 ABG Base Excess ABG Hemoglobin Oxyhemoglobin Sodium Potassium Chloride Carbon Dioxide 15 L BUN 124 H Creatinine 3.8 H Glucose POC Glucose 120 H Lactic Acid Calcium 8.1 L Phosphorus Magnesium Direct Bilirubin AST ALT Alkaline Phosphatase Lactate Dehydrogenase Troponin T C-Reactive Protein Total Protein Albumin Prealbumin Triglycerides Cholesterol LDL Cholesterol Direct HDL Cholesterol PTH Intact Urine pH Urine WBC (Auto) Urine Creatinine Urine Total Protein Fluid Total Protein Vancomycin Trough Rheumatoid Factor Complement C4 Miscellaneous Test Crossmatch 09/18/16 09/18/16 09/18/16 12:03 15:34 17:50 WBC RBC Hgb Hct MCV MCH MCHC RDW Plt Count Lymph % (Auto) [place] % (Auto) Lymph # [place] # Baso # Seg Neutrophils % Seg Neuts % (Manual) Lymphocytes % (Manual) Monocytes % (Manual) Eosinophils % (Manual) Basophils % (Manual) Nucleated RBC % Seg Neutrophils # Seg Neutrophils # Man Lymphocytes # (Manual) Monocytes # (Manual) Eosinophils # (Manual) Basophils # (Manual) PT INR Fibrinogen dRVVT Confirm Interp Factor V Activity POC ABG pH POC ABG pCO2 25.7 L POC ABG pO2 66 L ABG pO2 ABG HCO3 ABG Base Excess ABG Hemoglobin Oxyhemoglobin Sodium Potassium Chloride Carbon Dioxide BUN Creatinine Glucose POC Glucose 156 H 220 H Lactic Acid Calcium Phosphorus Magnesium Direct Bilirubin AST ALT Alkaline Phosphatase Lactate Dehydrogenase Troponin T C-Reactive Protein Total Protein Albumin Prealbumin Triglycerides Cholesterol LDL Cholesterol Direct HDL Cholesterol PTH Intact Urine pH Urine WBC (Auto) Urine Creatinine Urine Total Protein Fluid Total Protein Vancomycin Trough Rheumatoid Factor Complement C4 Miscellaneous Test Crossmatch 09/19/16 09/19/16 09/19/16 06:21 09:50 09:50 WBC 17.1 H RBC 3.49 L Hgb 9.0 L Hct 28.1 L MCV MCH 26 L MCHC RDW 20.8 H Plt Count Lymph % (Auto) 11.5 L [place] % (Auto) 7.5 H Lymph # [place] # 1.3 H Baso # Seg Neutrophils % 79.8 H Seg Neuts % (Manual) Lymphocytes % (Manual) Monocytes % (Manual) Eosinophils % (Manual) Basophils % (Manual) Nucleated RBC % Seg Neutrophils # 13.7 H Seg Neutrophils # Man Lymphocytes # (Manual) Monocytes # (Manual) Eosinophils # (Manual) Basophils # (Manual) PT INR Fibrinogen dRVVT Confirm Interp Factor V Activity POC ABG pH POC ABG pCO2 POC ABG pO2 ABG pO2 ABG HCO3 ABG Base Excess ABG Hemoglobin Oxyhemoglobin Sodium Potassium Chloride 108.6 H Carbon Dioxide 15 L BUN 125 H Creatinine 4.1 H Glucose 124 H POC Glucose 119 H Lactic Acid Calcium Phosphorus Magnesium Direct Bilirubin AST ALT Alkaline Phosphatase Lactate Dehydrogenase Troponin T C-Reactive Protein Total Protein Albumin Prealbumin Triglycerides Cholesterol LDL Cholesterol Direct HDL Cholesterol PTH Intact Urine pH Urine WBC (Auto) Urine Creatinine Urine Total Protein Fluid Total Protein Vancomycin Trough Rheumatoid Factor Complement C4 Miscellaneous Test Crossmatch 09/19/16 09/19/16 09/19/16 11:25 17:53 23:36 WBC RBC Hgb Hct MCV MCH MCHC RDW Plt Count Lymph % (Auto) [place] % (Auto) Lymph # [place] # Baso # Seg Neutrophils % Seg Neuts % (Manual) Lymphocytes % (Manual) Monocytes % (Manual) Eosinophils % (Manual) Basophils % (Manual) Nucleated RBC % Seg Neutrophils # Seg Neutrophils # Man Lymphocytes # (Manual) Monocytes # (Manual) Eosinophils # (Manual) Basophils # (Manual) PT INR Fibrinogen dRVVT Confirm Interp Factor V Activity POC ABG pH POC ABG pCO2 POC ABG pO2 ABG pO2 ABG HCO3 ABG Base Excess ABG Hemoglobin Oxyhemoglobin Sodium Potassium Chloride Carbon Dioxide BUN Creatinine Glucose POC Glucose 160 H 245 H 121 H Lactic Acid Calcium Phosphorus Magnesium Direct Bilirubin AST ALT Alkaline Phosphatase Lactate Dehydrogenase Troponin T C-Reactive Protein Total Protein Albumin Prealbumin Triglycerides Cholesterol LDL Cholesterol Direct HDL Cholesterol PTH Intact Urine pH Urine WBC (Auto) Urine Creatinine Urine Total Protein Fluid Total Protein Vancomycin Trough Rheumatoid Factor Complement C4 Miscellaneous Test Crossmatch 09/20/16 09/20/16 09/20/16 04:10 04:10 04:10 WBC 17.0 H RBC 3.21 L Hgb 8.2 L Hct 25.5 L MCV MCH 26 L MCHC RDW 20.9 H Plt Count Lymph % (Auto) [place] % (Auto) Lymph # [place] # Baso # Seg Neutrophils % Seg Neuts % (Manual) Lymphocytes % (Manual) Monocytes % (Manual) Eosinophils % (Manual) Basophils % (Manual) Nucleated RBC % Seg Neutrophils # Seg Neutrophils # Man Lymphocytes # (Manual) Monocytes # (Manual) Eosinophils # (Manual) Basophils # (Manual) PT INR Fibrinogen dRVVT Confirm Interp Factor V Activity POC ABG pH POC ABG pCO2 POC ABG pO2 ABG pO2 ABG HCO3 ABG Base Excess ABG Hemoglobin Oxyhemoglobin Sodium Potassium Chloride 111.0 H Carbon Dioxide 16 L BUN 129 H Creatinine 3.7 H Glucose 115 H POC Glucose Lactic Acid Calcium 8.2 L Phosphorus Magnesium Direct Bilirubin AST ALT Alkaline Phosphatase Lactate Dehydrogenase Troponin T C-Reactive Protein Total Protein Albumin Prealbumin Triglycerides 243 H Cholesterol LDL Cholesterol Direct HDL Cholesterol PTH Intact Urine pH Urine WBC (Auto) Urine Creatinine Urine Total Protein Fluid Total Protein Vancomycin Trough Rheumatoid Factor Complement C4 Miscellaneous Test Crossmatch 09/20/16 09/20/16 09/20/16 05:40 11:52 16:50 WBC RBC Hgb Hct MCV MCH MCHC RDW Plt Count Lymph % (Auto) [place] % (Auto) Lymph # [place] # Baso # Seg Neutrophils % Seg Neuts % (Manual) Lymphocytes % (Manual) Monocytes % (Manual) Eosinophils % (Manual) Basophils % (Manual) Nucleated RBC % Seg Neutrophils # Seg Neutrophils # Man Lymphocytes # (Manual) Monocytes # (Manual) Eosinophils # (Manual) Basophils # (Manual) PT INR Fibrinogen dRVVT Confirm Interp Factor V Activity POC ABG pH POC ABG pCO2 POC ABG pO2 ABG pO2 ABG HCO3 ABG Base Excess ABG Hemoglobin Oxyhemoglobin Sodium Potassium Chloride Carbon Dioxide BUN Creatinine Glucose POC Glucose 131 H 183 H 236 H Lactic Acid Calcium Phosphorus Magnesium Direct Bilirubin AST ALT Alkaline Phosphatase Lactate Dehydrogenase Troponin T C-Reactive Protein Total Protein Albumin Prealbumin Triglycerides Cholesterol LDL Cholesterol Direct HDL Cholesterol PTH Intact Urine pH Urine WBC (Auto) Urine Creatinine Urine Total Protein Fluid Total Protein Vancomycin Trough Rheumatoid Factor Complement C4 Miscellaneous Test Crossmatch 09/20/16 09/21/16 09/21/16 23:51 03:30 04:44 WBC RBC Hgb Hct MCV MCH MCHC RDW Plt Count Lymph % (Auto) [place] % (Auto) Lymph # [place] # Baso # Seg Neutrophils % Seg Neuts % (Manual) Lymphocytes % (Manual) Monocytes % (Manual) Eosinophils % (Manual) Basophils % (Manual) Nucleated RBC % Seg Neutrophils # Seg Neutrophils # Man Lymphocytes # (Manual) Monocytes # (Manual) Eosinophils # (Manual) Basophils # (Manual) PT INR Fibrinogen dRVVT Confirm Interp Factor V Activity POC ABG pH POC ABG pCO2 POC ABG pO2 ABG pO2 ABG HCO3 ABG Base Excess ABG Hemoglobin Oxyhemoglobin Sodium Potassium Chloride Carbon Dioxide BUN Creatinine Glucose POC Glucose 114 H 141 H Lactic Acid Calcium Phosphorus Magnesium 2.70 H Direct Bilirubin AST ALT Alkaline Phosphatase Lactate Dehydrogenase Troponin T C-Reactive Protein Total Protein Albumin Prealbumin Triglycerides Cholesterol LDL Cholesterol Direct HDL Cholesterol PTH Intact Urine pH Urine WBC (Auto) Urine Creatinine Urine Total Protein Fluid Total Protein Vancomycin Trough Rheumatoid Factor Complement C4 Miscellaneous Test Crossmatch 09/21/16 09/21/16 09/21/16 07:45 07:45 10:01 WBC 13.8 H RBC 2.94 L Hgb 7.5 L Hct 23.5 L MCV MCH 26 L MCHC RDW 21.2 H Plt Count Lymph % (Auto) 6.9 L [place] % (Auto) 9.4 H Lymph # 0.9 L [place] # 1.3 H Baso # Seg Neutrophils % 83.2 H Seg Neuts % (Manual) Lymphocytes % (Manual) Monocytes % (Manual) Eosinophils % (Manual) Basophils % (Manual) Nucleated RBC % Seg Neutrophils # 11.5 H Seg Neutrophils # Man Lymphocytes # (Manual) Monocytes # (Manual) Eosinophils # (Manual) Basophils # (Manual) PT INR Fibrinogen dRVVT Confirm Interp Factor V Activity POC ABG pH 7.308 L POC ABG pCO2 31.9 L POC ABG pO2 148 H ABG pO2 ABG HCO3 ABG Base Excess ABG Hemoglobin Oxyhemoglobin Sodium 147 H Potassium Chloride 114.2 H Carbon Dioxide 15 L BUN 120 H Creatinine 3.9 H Glucose 156 H POC Glucose Lactic Acid Calcium 8.2 L Phosphorus Magnesium Direct Bilirubin AST ALT Alkaline Phosphatase Lactate Dehydrogenase Troponin T C-Reactive Protein Total Protein Albumin Prealbumin Triglycerides Cholesterol LDL Cholesterol Direct HDL Cholesterol PTH Intact Urine pH Urine WBC (Auto) Urine Creatinine Urine Total Protein Fluid Total Protein Vancomycin Trough Rheumatoid Factor Complement C4 Miscellaneous Test Crossmatch 09/21/16 09/21/16 09/21/16 12:00 12:03 13:00 WBC RBC Hgb Hct MCV MCH MCHC RDW Plt Count Lymph % (Auto) [place] % (Auto) Lymph # [place] # Baso # Seg Neutrophils % Seg Neuts % (Manual) Lymphocytes % (Manual) Monocytes % (Manual) Eosinophils % (Manual) Basophils % (Manual) Nucleated RBC % Seg Neutrophils # Seg Neutrophils # Man Lymphocytes # (Manual) Monocytes # (Manual) Eosinophils # (Manual) Basophils # (Manual) PT INR Fibrinogen dRVVT Confirm Interp Factor V Activity POC ABG pH POC ABG pCO2 POC ABG pO2 ABG pO2 ABG HCO3 ABG Base Excess ABG Hemoglobin Oxyhemoglobin Sodium Potassium Chloride Carbon Dioxide BUN Creatinine Glucose POC Glucose 163 H Lactic Acid Calcium Phosphorus Magnesium Direct Bilirubin AST ALT Alkaline Phosphatase Lactate Dehydrogenase Troponin T C-Reactive Protein Total Protein Albumin Prealbumin Triglycerides Cholesterol LDL Cholesterol Direct HDL Cholesterol PTH Intact Urine pH Urine WBC (Auto) Urine Creatinine 54.8 H Urine Total Protein Fluid Total Protein Vancomycin Trough 2.3 L Rheumatoid Factor Complement C4 Miscellaneous Test Crossmatch 09/21/16 09/21/16 09/22/16 16:51 23:17 06:27 WBC RBC Hgb Hct MCV MCH MCHC RDW Plt Count Lymph % (Auto) [place] % (Auto) Lymph # [place] # Baso # Seg Neutrophils % Seg Neuts % (Manual) Lymphocytes % (Manual) Monocytes % (Manual) Eosinophils % (Manual) Basophils % (Manual) Nucleated RBC % Seg Neutrophils # Seg Neutrophils # Man Lymphocytes # (Manual) Monocytes # (Manual) Eosinophils # (Manual) Basophils # (Manual) PT INR Fibrinogen dRVVT Confirm Interp Factor V Activity POC ABG pH POC ABG pCO2 POC ABG pO2 ABG pO2 ABG HCO3 ABG Base Excess ABG Hemoglobin Oxyhemoglobin Sodium Potassium Chloride Carbon Dioxide BUN Creatinine Glucose POC Glucose 206 H 114 H 115 H Lactic Acid Calcium Phosphorus Magnesium Direct Bilirubin AST ALT Alkaline Phosphatase Lactate Dehydrogenase Troponin T C-Reactive Protein Total Protein Albumin Prealbumin Triglycerides Cholesterol LDL Cholesterol Direct HDL Cholesterol PTH Intact Urine pH Urine WBC (Auto) Urine Creatinine Urine Total Protein Fluid Total Protein Vancomycin Trough Rheumatoid Factor Complement C4 Miscellaneous Test Crossmatch 09/22/16 09/22/16 09/22/16 07:50 07:50 12:00 WBC 17.8 H RBC 3.04 L Hgb 8.0 L Hct 24.7 L MCV MCH 26 L MCHC RDW 21.6 H Plt Count Lymph % (Auto) [place] % (Auto) Lymph # [place] # Baso # Seg Neutrophils % Seg Neuts % (Manual) Lymphocytes % (Manual) Monocytes % (Manual) Eosinophils % (Manual) Basophils % (Manual) Nucleated RBC % Seg Neutrophils # Seg Neutrophils # Man Lymphocytes # (Manual) Monocytes # (Manual) Eosinophils # (Manual) Basophils # (Manual) PT INR Fibrinogen dRVVT Confirm Interp Factor V Activity POC ABG pH POC ABG pCO2 POC ABG pO2 ABG pO2 ABG HCO3 ABG Base Excess ABG Hemoglobin Oxyhemoglobin Sodium 150 H Potassium Chloride 118.2 H Carbon Dioxide 14 L BUN 111 H Creatinine 3.7 H Glucose 157 H POC Glucose 183 H Lactic Acid Calcium Phosphorus Magnesium Direct Bilirubin AST ALT Alkaline Phosphatase Lactate Dehydrogenase Troponin T C-Reactive Protein Total Protein Albumin Prealbumin Triglycerides Cholesterol LDL Cholesterol Direct HDL Cholesterol PTH Intact Urine pH Urine WBC (Auto) Urine Creatinine Urine Total Protein Fluid Total Protein Vancomycin Trough Rheumatoid Factor Complement C4 Miscellaneous Test Crossmatch 09/22/16 09/22/16 09/23/16 17:29 23:10 05:00 WBC 19.2 H RBC 3.13 L Hgb 8.0 L Hct 25.2 L MCV MCH 26 L MCHC RDW 22.1 H Plt Count Lymph % (Auto) [place] % (Auto) Lymph # [place] # Baso # Seg Neutrophils % Seg Neuts % (Manual) 92.0 H Lymphocytes % (Manual) 3.0 L Monocytes % (Manual) Eosinophils % (Manual) Basophils % (Manual) Nucleated RBC % Seg Neutrophils # Seg Neutrophils # Man 17.7 H Lymphocytes # (Manual) 0.6 L Monocytes # (Manual) Eosinophils # (Manual) Basophils # (Manual) PT INR Fibrinogen dRVVT Confirm Interp Factor V Activity POC ABG pH POC ABG pCO2 POC ABG pO2 ABG pO2 ABG HCO3 ABG Base Excess ABG Hemoglobin Oxyhemoglobin Sodium Potassium Chloride Carbon Dioxide BUN Creatinine Glucose POC Glucose 197 H 169 H Lactic Acid Calcium Phosphorus Magnesium Direct Bilirubin AST ALT Alkaline Phosphatase Lactate Dehydrogenase Troponin T C-Reactive Protein Total Protein Albumin Prealbumin Triglycerides Cholesterol LDL Cholesterol Direct HDL Cholesterol PTH Intact Urine pH Urine WBC (Auto) Urine Creatinine Urine Total Protein Fluid Total Protein Vancomycin Trough Rheumatoid Factor Complement C4 Miscellaneous Test Crossmatch 09/23/16 09/23/16 09/23/16 05:00 05:00 05:10 WBC RBC Hgb Hct MCV MCH MCHC RDW Plt Count Lymph % (Auto) [place] % (Auto) Lymph # [place] # Baso # Seg Neutrophils % Seg Neuts % (Manual) Lymphocytes % (Manual) Monocytes % (Manual) Eosinophils % (Manual) Basophils % (Manual) Nucleated RBC % Seg Neutrophils # Seg Neutrophils # Man Lymphocytes # (Manual) Monocytes # (Manual) Eosinophils # (Manual) Basophils # (Manual) PT INR Fibrinogen dRVVT Confirm Interp Factor V Activity POC ABG pH POC ABG pCO2 POC ABG pO2 ABG pO2 ABG HCO3 ABG Base Excess ABG Hemoglobin Oxyhemoglobin Sodium 147 H Potassium 3.2 L Chloride 115.7 H Carbon Dioxide 13 L BUN 111 H Creatinine 3.8 H Glucose 194 H POC Glucose 188 H Lactic Acid Calcium 7.3 L D Phosphorus Magnesium Direct Bilirubin AST ALT Alkaline Phosphatase Lactate Dehydrogenase Troponin T C-Reactive Protein 3.20 H Total Protein Albumin Prealbumin Triglycerides Cholesterol LDL Cholesterol Direct HDL Cholesterol PTH Intact Urine pH Urine WBC (Auto) Urine Creatinine Urine Total Protein Fluid Total Protein Vancomycin Trough Rheumatoid Factor Complement C4 Miscellaneous Test Crossmatch 09/23/16 09/23/16 09/23/16 11:37 12:29 18:01 WBC RBC Hgb Hct MCV MCH MCHC RDW Plt Count Lymph % (Auto) [place] % (Auto) Lymph # [place] # Baso # Seg Neutrophils % Seg Neuts % (Manual) Lymphocytes % (Manual) Monocytes % (Manual) Eosinophils % (Manual) Basophils % (Manual) Nucleated RBC % Seg Neutrophils # Seg Neutrophils # Man Lymphocytes # (Manual) Monocytes # (Manual) Eosinophils # (Manual) Basophils # (Manual) PT INR Fibrinogen dRVVT Confirm Interp Factor V Activity POC ABG pH POC ABG pCO2 18.9 L POC ABG pO2 143 H ABG pO2 ABG HCO3 ABG Base Excess ABG Hemoglobin Oxyhemoglobin Sodium Potassium Chloride Carbon Dioxide BUN Creatinine Glucose POC Glucose 153 H 108 H Lactic Acid Calcium Phosphorus Magnesium Direct Bilirubin AST ALT Alkaline Phosphatase Lactate Dehydrogenase Troponin T C-Reactive Protein Total Protein Albumin Prealbumin Triglycerides Cholesterol LDL Cholesterol Direct HDL Cholesterol PTH Intact Urine pH Urine WBC (Auto) Urine Creatinine Urine Total Protein Fluid Total Protein Vancomycin Trough Rheumatoid Factor Complement C4 Miscellaneous Test Crossmatch 09/23/16 09/23/16 09/24/16 21:19 23:43 05:16 WBC RBC Hgb Hct MCV MCH MCHC RDW Plt Count Lymph % (Auto) [place] % (Auto) Lymph # [place] # Baso # Seg Neutrophils % Seg Neuts % (Manual) Lymphocytes % (Manual) Monocytes % (Manual) Eosinophils % (Manual) Basophils % (Manual) Nucleated RBC % Seg Neutrophils # Seg Neutrophils # Man Lymphocytes # (Manual) Monocytes # (Manual) Eosinophils # (Manual) Basophils # (Manual) PT INR Fibrinogen dRVVT Confirm Interp Factor V Activity POC ABG pH POC ABG pCO2 17.3 L POC ABG pO2 112 H ABG pO2 ABG HCO3 ABG Base Excess ABG Hemoglobin Oxyhemoglobin Sodium Potassium Chloride Carbon Dioxide BUN Creatinine Glucose POC Glucose 143 H 164 H Lactic Acid Calcium Phosphorus Magnesium Direct Bilirubin AST ALT Alkaline Phosphatase Lactate Dehydrogenase Troponin T C-Reactive Protein Total Protein Albumin Prealbumin Triglycerides Cholesterol LDL Cholesterol Direct HDL Cholesterol PTH Intact Urine pH Urine WBC (Auto) Urine Creatinine Urine Total Protein Fluid Total Protein Vancomycin Trough Rheumatoid Factor Complement C4 Miscellaneous Test Crossmatch 09/24/16 09/24/16 09/24/16 05:21 11:58 17:06 WBC RBC Hgb Hct MCV MCH MCHC RDW Plt Count Lymph % (Auto) [place] % (Auto) Lymph # [place] # Baso # Seg Neutrophils % Seg Neuts % (Manual) Lymphocytes % (Manual) Monocytes % (Manual) Eosinophils % (Manual) Basophils % (Manual) Nucleated RBC % Seg Neutrophils # Seg Neutrophils # Man Lymphocytes # (Manual) Monocytes # (Manual) Eosinophils # (Manual) Basophils # (Manual) PT INR Fibrinogen dRVVT Confirm Interp Factor V Activity POC ABG pH POC ABG pCO2 POC ABG pO2 ABG pO2 ABG HCO3 ABG Base Excess ABG Hemoglobin Oxyhemoglobin Sodium Potassium Chloride Carbon Dioxide 10 L BUN 103 H Creatinine 4.3 H Glucose 163 H POC Glucose 173 H 167 H Lactic Acid Calcium 6.5 L Phosphorus Magnesium Direct Bilirubin AST ALT Alkaline Phosphatase Lactate Dehydrogenase Troponin T C-Reactive Protein Total Protein Albumin Prealbumin Triglycerides Cholesterol LDL Cholesterol Direct HDL Cholesterol PTH Intact Urine pH Urine WBC (Auto) Urine Creatinine Urine Total Protein Fluid Total Protein Vancomycin Trough Rheumatoid Factor Complement C4 Miscellaneous Test Crossmatch 09/24/16 09/24/16 09/24/16 20:15 21:02 23:48 WBC RBC Hgb Hct MCV MCH MCHC RDW Plt Count Lymph % (Auto) [place] % (Auto) Lymph # [place] # Baso # Seg Neutrophils % Seg Neuts % (Manual) Lymphocytes % (Manual) Monocytes % (Manual) Eosinophils % (Manual) Basophils % (Manual) Nucleated RBC % Seg Neutrophils # Seg Neutrophils # Man Lymphocytes # (Manual) Monocytes # (Manual) Eosinophils # (Manual) Basophils # (Manual) PT INR Fibrinogen dRVVT Confirm Interp Factor V Activity POC ABG pH 7.288 L POC ABG pCO2 30.2 L 21.5 L POC ABG pO2 32 L 39 L ABG pO2 ABG HCO3 ABG Base Excess ABG Hemoglobin Oxyhemoglobin Sodium Potassium Chloride Carbon Dioxide BUN Creatinine Glucose POC Glucose 109 H Lactic Acid Calcium Phosphorus Magnesium Direct Bilirubin AST ALT Alkaline Phosphatase Lactate Dehydrogenase Troponin T C-Reactive Protein Total Protein Albumin Prealbumin Triglycerides Cholesterol LDL Cholesterol Direct HDL Cholesterol PTH Intact Urine pH Urine WBC (Auto) Urine Creatinine Urine Total Protein Fluid Total Protein Vancomycin Trough Rheumatoid Factor Complement C4 Miscellaneous Test Crossmatch 09/25/16 09/25/16 09/25/16 04:20 04:20 04:20 WBC RBC 2.58 L Hgb 7.0 L Hct 21.0 L MCV MCH 27 L MCHC RDW 23.8 H Plt Count Lymph % (Auto) [place] % (Auto) Lymph # [place] # Baso # Seg Neutrophils % Seg Neuts % (Manual) Lymphocytes % (Manual) 12.0 L Monocytes % (Manual) Eosinophils % (Manual) 7.0 H Basophils % (Manual) 2.0 H Nucleated RBC % Seg Neutrophils # Seg Neutrophils # Man Lymphocytes # (Manual) 0.9 L Monocytes # (Manual) Eosinophils # (Manual) 0.5 H Basophils # (Manual) PT INR Fibrinogen dRVVT Confirm Interp Factor V Activity POC ABG pH POC ABG pCO2 POC ABG pO2 ABG pO2 ABG HCO3 ABG Base Excess ABG Hemoglobin Oxyhemoglobin Sodium Potassium Chloride Carbon Dioxide 15 L BUN 72 H Creatinine 3.8 H Glucose POC Glucose Lactic Acid Calcium 6.0 L Phosphorus 4.60 H Magnesium 1.60 L Direct Bilirubin AST ALT Alkaline Phosphatase Lactate Dehydrogenase Troponin T C-Reactive Protein Total Protein Albumin Prealbumin Triglycerides Cholesterol LDL Cholesterol Direct HDL Cholesterol PTH Intact Urine pH Urine WBC (Auto) Urine Creatinine Urine Total Protein Fluid Total Protein Vancomycin Trough Rheumatoid Factor Complement C4 Miscellaneous Test Crossmatch 09/25/16 09/25/16 09/25/16 04:57 08:02 10:30 WBC RBC Hgb Hct MCV MCH MCHC RDW Plt Count Lymph % (Auto) [place] % (Auto) Lymph # [place] # Baso # Seg Neutrophils % Seg Neuts % (Manual) Lymphocytes % (Manual) Monocytes % (Manual) Eosinophils % (Manual) Basophils % (Manual) Nucleated RBC % Seg Neutrophils # Seg Neutrophils # Man Lymphocytes # (Manual) Monocytes # (Manual) Eosinophils # (Manual) Basophils # (Manual) PT INR Fibrinogen dRVVT Confirm Interp Factor V Activity POC ABG pH POC ABG pCO2 24.7 L POC ABG pO2 152 H ABG pO2 ABG HCO3 ABG Base Excess ABG Hemoglobin Oxyhemoglobin Sodium Potassium Chloride Carbon Dioxide BUN Creatinine Glucose POC Glucose 113 H Lactic Acid Calcium Phosphorus Magnesium Direct Bilirubin AST ALT Alkaline Phosphatase Lactate Dehydrogenase Troponin T C-Reactive Protein Total Protein Albumin Prealbumin Triglycerides Cholesterol LDL Cholesterol Direct HDL Cholesterol PTH Intact Urine pH Urine WBC (Auto) Urine Creatinine Urine Total Protein Fluid Total Protein Vancomycin Trough Rheumatoid Factor Complement C4 Miscellaneous Test Crossmatch See Detail 09/25/16 09/25/16 09/25/16 12:05 17:44 23:47 WBC RBC Hgb Hct MCV MCH MCHC RDW Plt Count Lymph % (Auto) [place] % (Auto) Lymph # [place] # Baso # Seg Neutrophils % Seg Neuts % (Manual) Lymphocytes % (Manual) Monocytes % (Manual) Eosinophils % (Manual) Basophils % (Manual) Nucleated RBC % Seg Neutrophils # Seg Neutrophils # Man Lymphocytes # (Manual) Monocytes # (Manual) Eosinophils # (Manual) Basophils # (Manual) PT INR Fibrinogen dRVVT Confirm Interp Factor V Activity POC ABG pH POC ABG pCO2 POC ABG pO2 ABG pO2 ABG HCO3 ABG Base Excess ABG Hemoglobin Oxyhemoglobin Sodium Potassium Chloride Carbon Dioxide BUN Creatinine Glucose POC Glucose 117 H 119 H 150 H Lactic Acid Calcium Phosphorus Magnesium Direct Bilirubin AST ALT Alkaline Phosphatase Lactate Dehydrogenase Troponin T C-Reactive Protein Total Protein Albumin Prealbumin Triglycerides Cholesterol LDL Cholesterol Direct HDL Cholesterol PTH Intact Urine pH Urine WBC (Auto) Urine Creatinine Urine Total Protein Fluid Total Protein Vancomycin Trough Rheumatoid Factor Complement C4 Miscellaneous Test Crossmatch 09/26/16 09/26/16 09/26/16 04:25 04:25 04:25 WBC RBC 2.65 L Hgb 7.4 L Hct 21.6 L MCV MCH MCHC RDW 22.5 H Plt Count Lymph % (Auto) [place] % (Auto) Lymph # [place] # Baso # Seg Neutrophils % Seg Neuts % (Manual) Lymphocytes % (Manual) 6.0 L Monocytes % (Manual) Eosinophils % (Manual) 11.0 H Basophils % (Manual) Nucleated RBC % Seg Neutrophils # Seg Neutrophils # Man Lymphocytes # (Manual) 0.4 L Monocytes # (Manual) Eosinophils # (Manual) 0.6 H Basophils # (Manual) PT INR Fibrinogen dRVVT Confirm Interp Factor V Activity POC ABG pH POC ABG pCO2 POC ABG pO2 ABG pO2 ABG HCO3 ABG Base Excess ABG Hemoglobin Oxyhemoglobin Sodium Potassium Chloride 97.0 L Carbon Dioxide 19 L BUN 43 H Creatinine 2.6 H Glucose 130 H POC Glucose Lactic Acid 4.40 H* Calcium 6.7 L Phosphorus Magnesium Direct Bilirubin AST ALT Alkaline Phosphatase Lactate Dehydrogenase Troponin T C-Reactive Protein Total Protein Albumin Prealbumin Triglycerides Cholesterol LDL Cholesterol Direct HDL Cholesterol PTH Intact Urine pH Urine WBC (Auto) Urine Creatinine Urine Total Protein Fluid Total Protein Vancomycin Trough Rheumatoid Factor Complement C4 Miscellaneous Test Crossmatch 09/26/16 09/26/16 09/26/16 05:20 11:44 12:12 WBC RBC Hgb Hct MCV MCH MCHC RDW Plt Count Lymph % (Auto) [place] % (Auto) Lymph # [place] # Baso # Seg Neutrophils % Seg Neuts % (Manual) Lymphocytes % (Manual) Monocytes % (Manual) Eosinophils % (Manual) Basophils % (Manual) Nucleated RBC % Seg Neutrophils # Seg Neutrophils # Man Lymphocytes # (Manual) Monocytes # (Manual) Eosinophils # (Manual) Basophils # (Manual) PT INR Fibrinogen dRVVT Confirm Interp Factor V Activity POC ABG pH POC ABG pCO2 27.0 L POC ABG pO2 69 L ABG pO2 ABG HCO3 ABG Base Excess ABG Hemoglobin Oxyhemoglobin Sodium Potassium Chloride Carbon Dioxide BUN Creatinine Glucose POC Glucose 121 H 128 H Lactic Acid Calcium Phosphorus Magnesium Direct Bilirubin AST ALT Alkaline Phosphatase Lactate Dehydrogenase Troponin T C-Reactive Protein Total Protein Albumin Prealbumin Triglycerides Cholesterol LDL Cholesterol Direct HDL Cholesterol PTH Intact Urine pH Urine WBC (Auto) Urine Creatinine Urine Total Protein Fluid Total Protein Vancomycin Trough Rheumatoid Factor Complement C4 Miscellaneous Test Crossmatch 09/26/16 09/26/16 09/27/16 18:31 23:40 08:20 WBC RBC Hgb Hct MCV MCH MCHC RDW Plt Count Lymph % (Auto) [place] % (Auto) Lymph # [place] # Baso # Seg Neutrophils % Seg Neuts % (Manual) Lymphocytes % (Manual) Monocytes % (Manual) Eosinophils % (Manual) Basophils % (Manual) Nucleated RBC % Seg Neutrophils # Seg Neutrophils # Man Lymphocytes # (Manual) Monocytes # (Manual) Eosinophils # (Manual) Basophils # (Manual) PT INR Fibrinogen dRVVT Confirm Interp Factor V Activity POC ABG pH POC ABG pCO2 POC ABG pO2 ABG pO2 ABG HCO3 ABG Base Excess ABG Hemoglobin Oxyhemoglobin Sodium Potassium Chloride Carbon Dioxide BUN Creatinine Glucose POC Glucose 120 H 133 H Lactic Acid 4.10 H* Calcium Phosphorus Magnesium Direct Bilirubin AST ALT Alkaline Phosphatase Lactate Dehydrogenase Troponin T C-Reactive Protein Total Protein Albumin Prealbumin Triglycerides Cholesterol LDL Cholesterol Direct HDL Cholesterol PTH Intact Urine pH Urine WBC (Auto) Urine Creatinine Urine Total Protein Fluid Total Protein Vancomycin Trough Rheumatoid Factor Complement C4 Miscellaneous Test Crossmatch 09/27/16 09/27/16 09/27/16 11:23 15:00 18:15 WBC RBC Hgb Hct MCV MCH MCHC RDW Plt Count Lymph % (Auto) [place] % (Auto) Lymph # [place] # Baso # Seg Neutrophils % Seg Neuts % (Manual) Lymphocytes % (Manual) Monocytes % (Manual) Eosinophils % (Manual) Basophils % (Manual) Nucleated RBC % Seg Neutrophils # Seg Neutrophils # Man Lymphocytes # (Manual) Monocytes # (Manual) Eosinophils # (Manual) Basophils # (Manual) PT INR Fibrinogen dRVVT Confirm Interp Factor V Activity POC ABG pH 7.459 H POC ABG pCO2 27.1 L POC ABG pO2 140 H ABG pO2 ABG HCO3 ABG Base Excess ABG Hemoglobin Oxyhemoglobin Sodium Potassium Chloride Carbon Dioxide BUN Creatinine Glucose POC Glucose 114 H 127 H Lactic Acid Calcium Phosphorus Magnesium Direct Bilirubin AST ALT Alkaline Phosphatase Lactate Dehydrogenase Troponin T C-Reactive Protein Total Protein Albumin Prealbumin Triglycerides Cholesterol LDL Cholesterol Direct HDL Cholesterol PTH Intact Urine pH Urine WBC (Auto) Urine Creatinine Urine Total Protein Fluid Total Protein Vancomycin Trough Rheumatoid Factor Complement C4 Miscellaneous Test Crossmatch 09/27/16 09/27/16 09/28/16 Unknown Unknown 03:45 WBC RBC 2.49 L Hgb 6.8 L Hct 20.7 L MCV MCH 27 L MCHC RDW 22.1 H Plt Count Lymph % (Auto) [place] % (Auto) Lymph # [place] # Baso # Seg Neutrophils % Seg Neuts % (Manual) 32.0 L Lymphocytes % (Manual) 12.0 L Monocytes % (Manual) 11.0 H Eosinophils % (Manual) 10.0 H Basophils % (Manual) Nucleated RBC % Seg Neutrophils # Seg Neutrophils # Man Lymphocytes # (Manual) 1.0 L Monocytes # (Manual) 0.9 H Eosinophils # (Manual) 0.8 H Basophils # (Manual) PT INR Fibrinogen dRVVT Confirm Interp Factor V Activity POC ABG pH POC ABG pCO2 POC ABG pO2 ABG pO2 ABG HCO3 ABG Base Excess ABG Hemoglobin Oxyhemoglobin Sodium 135 L 135 L Potassium 3.5 L Chloride 93.6 L 94.4 L Carbon Dioxide 17 L 21 L BUN 45 H 28 H Creatinine 3.3 H 2.5 H Glucose 106 H POC Glucose Lactic Acid Calcium 7.3 L 7.1 L Phosphorus Magnesium Direct Bilirubin AST ALT Alkaline Phosphatase Lactate Dehydrogenase Troponin T C-Reactive Protein Total Protein Albumin Prealbumin Triglycerides Cholesterol LDL Cholesterol Direct HDL Cholesterol PTH Intact Urine pH Urine WBC (Auto) Urine Creatinine Urine Total Protein Fluid Total Protein Vancomycin Trough Rheumatoid Factor Complement C4 Miscellaneous Test Crossmatch 09/28/16 09/28/16 09/28/16 03:45 07:25 11:58 WBC 13.3 H RBC 3.01 L Hgb 8.4 L Hct 25.0 L MCV MCH MCHC RDW 20.5 H Plt Count 128 L Lymph % (Auto) [place] % (Auto) Lymph # [place] # Baso # Seg Neutrophils % Seg Neuts % (Manual) Lymphocytes % (Manual) 7.0 L Monocytes % (Manual) Eosinophils % (Manual) 6.0 H Basophils % (Manual) Nucleated RBC % Seg Neutrophils # Seg Neutrophils # Man Lymphocytes # (Manual) 0.9 L Monocytes # (Manual) Eosinophils # (Manual) 0.8 H Basophils # (Manual) PT INR Fibrinogen dRVVT Confirm Interp Factor V Activity POC ABG pH POC ABG pCO2 POC ABG pO2 ABG pO2 ABG HCO3 ABG Base Excess ABG Hemoglobin Oxyhemoglobin Sodium Potassium Chloride Carbon Dioxide BUN Creatinine Glucose POC Glucose 121 H Lactic Acid 4.50 H* Calcium Phosphorus Magnesium Direct Bilirubin AST ALT Alkaline Phosphatase Lactate Dehydrogenase Troponin T C-Reactive Protein Total Protein Albumin Prealbumin Triglycerides Cholesterol LDL Cholesterol Direct HDL Cholesterol PTH Intact Urine pH Urine WBC (Auto) Urine Creatinine Urine Total Protein Fluid Total Protein Vancomycin Trough Rheumatoid Factor Complement C4 Miscellaneous Test Crossmatch 09/29/16 09/29/16 09/29/16 06:45 06:45 06:45 WBC 14.9 H RBC 2.74 L Hgb 7.6 L Hct 23.2 L MCV MCH MCHC RDW 20.5 H Plt Count 81 L Lymph % (Auto) [place] % (Auto) Lymph # [place] # Baso # Seg Neutrophils % Seg Neuts % (Manual) 81.0 H Lymphocytes % (Manual) 4.0 L Monocytes % (Manual) Eosinophils % (Manual) Basophils % (Manual) Nucleated RBC % Seg Neutrophils # Seg Neutrophils # Man 12.1 H Lymphocytes # (Manual) 0.6 L Monocytes # (Manual) Eosinophils # (Manual) Basophils # (Manual) PT INR Fibrinogen dRVVT Confirm Interp Factor V Activity POC ABG pH POC ABG pCO2 POC ABG pO2 ABG pO2 ABG HCO3 ABG Base Excess ABG Hemoglobin Oxyhemoglobin Sodium 133 L Potassium 3.4 L Chloride 92.5 L Carbon Dioxide 21 L BUN 33 H Creatinine 3.0 H Glucose POC Glucose Lactic Acid Calcium 6.6 L Phosphorus Magnesium 1.40 L Direct Bilirubin 0.9 H AST ALT Alkaline Phosphatase Lactate Dehydrogenase Troponin T C-Reactive Protein Total Protein 4.3 L Albumin 1.3 L Prealbumin Triglycerides Cholesterol LDL Cholesterol Direct HDL Cholesterol PTH Intact Urine pH Urine WBC (Auto) Urine Creatinine Urine Total Protein Fluid Total Protein Vancomycin Trough Rheumatoid Factor Complement C4 Miscellaneous Test Crossmatch 09/29/16 09/29/16 09/30/16 17:52 20:12 00:07 WBC RBC Hgb Hct MCV MCH MCHC RDW Plt Count Lymph % (Auto) [place] % (Auto) Lymph # [place] # Baso # Seg Neutrophils % Seg Neuts % (Manual) Lymphocytes % (Manual) Monocytes % (Manual) Eosinophils % (Manual) Basophils % (Manual) Nucleated RBC % Seg Neutrophils # Seg Neutrophils # Man Lymphocytes # (Manual) Monocytes # (Manual) Eosinophils # (Manual) Basophils # (Manual) PT INR Fibrinogen dRVVT Confirm Interp Factor V Activity POC ABG pH POC ABG pCO2 POC ABG pO2 ABG pO2 ABG HCO3 ABG Base Excess ABG Hemoglobin Oxyhemoglobin Sodium Potassium Chloride Carbon Dioxide BUN Creatinine Glucose POC Glucose 50 L 51 L Lactic Acid Calcium Phosphorus Magnesium Direct Bilirubin AST ALT Alkaline Phosphatase Lactate Dehydrogenase Troponin T 0.204 H* C-Reactive Protein Total Protein Albumin Prealbumin Triglycerides Cholesterol 31 L LDL Cholesterol Direct 4 L HDL Cholesterol 3 L PTH Intact Urine pH Urine WBC (Auto) Urine Creatinine Urine Total Protein Fluid Total Protein Vancomycin Trough Rheumatoid Factor Complement C4 Miscellaneous Test Crossmatch 09/30/16 09/30/16 09/30/16 01:30 05:15 06:10 WBC RBC Hgb Hct MCV MCH MCHC RDW Plt Count Lymph % (Auto) [place] % (Auto) Lymph # [place] # Baso # Seg Neutrophils % Seg Neuts % (Manual) Lymphocytes % (Manual) Monocytes % (Manual) Eosinophils % (Manual) Basophils % (Manual) Nucleated RBC % Seg Neutrophils # Seg Neutrophils # Man Lymphocytes # (Manual) Monocytes # (Manual) Eosinophils # (Manual) Basophils # (Manual) PT INR Fibrinogen dRVVT Confirm Interp Factor V Activity POC ABG pH POC ABG pCO2 POC ABG pO2 ABG pO2 ABG HCO3 ABG Base Excess ABG Hemoglobin Oxyhemoglobin Sodium 133 L Potassium 3.2 L Chloride 93.2 L Carbon Dioxide 19 L BUN 36 H Creatinine 3.2 H Glucose 104 H POC Glucose 167 H 146 H Lactic Acid Calcium 6.4 L Phosphorus Magnesium 1.60 L Direct Bilirubin AST ALT Alkaline Phosphatase Lactate Dehydrogenase Troponin T C-Reactive Protein Total Protein Albumin Prealbumin Triglycerides Cholesterol LDL Cholesterol Direct HDL Cholesterol PTH Intact Urine pH Urine WBC (Auto) Urine Creatinine Urine Total Protein Fluid Total Protein Vancomycin Trough Rheumatoid Factor Complement C4 Miscellaneous Test Crossmatch 09/30/16 09/30/16 09/30/16 11:26 13:39 18:38 WBC RBC Hgb Hct MCV MCH MCHC RDW Plt Count Lymph % (Auto) [place] % (Auto) Lymph # [place] # Baso # Seg Neutrophils % Seg Neuts % (Manual) Lymphocytes % (Manual) Monocytes % (Manual) Eosinophils % (Manual) Basophils % (Manual) Nucleated RBC % Seg Neutrophils # Seg Neutrophils # Man Lymphocytes # (Manual) Monocytes # (Manual) Eosinophils # (Manual) Basophils # (Manual) PT INR Fibrinogen dRVVT Confirm Interp Factor V Activity POC ABG pH 7.479 H POC ABG pCO2 29.8 L POC ABG pO2 117 H ABG pO2 ABG HCO3 ABG Base Excess ABG Hemoglobin Oxyhemoglobin Sodium Potassium Chloride Carbon Dioxide BUN Creatinine Glucose POC Glucose 140 H 122 H Lactic Acid Calcium Phosphorus Magnesium Direct Bilirubin AST ALT Alkaline Phosphatase Lactate Dehydrogenase Troponin T C-Reactive Protein Total Protein Albumin Prealbumin Triglycerides Cholesterol LDL Cholesterol Direct HDL Cholesterol PTH Intact Urine pH Urine WBC (Auto) Urine Creatinine Urine Total Protein Fluid Total Protein Vancomycin Trough Rheumatoid Factor Complement C4 Miscellaneous Test Crossmatch 08/02/0510/01/16 10/01/16 06:00 06:00 12:37 WBC 12.6 H RBC 2.75 L Hgb 7.3 L Hct 23.3 L MCV MCH 27 L MCHC RDW 20.6 H Plt Count 72 L Lymph % (Auto) [place] % (Auto) Lymph # [place] # Baso # Seg Neutrophils % Seg Neuts % (Manual) 31.0 L Lymphocytes % (Manual) 8.0 L Monocytes % (Manual) Eosinophils % (Manual) Basophils % (Manual) Nucleated RBC % 3.0 H Seg Neutrophils # Seg Neutrophils # Man Lymphocytes # (Manual) 1.0 L Monocytes # (Manual) Eosinophils # (Manual) Basophils # (Manual) PT INR Fibrinogen dRVVT Confirm Interp Factor V Activity POC ABG pH POC ABG pCO2 POC ABG pO2 ABG pO2 ABG HCO3 ABG Base Excess ABG Hemoglobin Oxyhemoglobin Sodium 127 L Potassium Chloride 86.8 L Carbon Dioxide 20 L BUN 42 H Creatinine 3.5 H Glucose POC Glucose 65 L Lactic Acid Calcium 7.0 L Phosphorus Magnesium Direct Bilirubin AST ALT Alkaline Phosphatase Lactate Dehydrogenase Troponin T C-Reactive Protein Total Protein Albumin Prealbumin Triglycerides Cholesterol LDL Cholesterol Direct HDL Cholesterol PTH Intact Urine pH Urine WBC (Auto) Urine Creatinine Urine Total Protein Fluid Total Protein Vancomycin Trough Rheumatoid Factor Complement C4 Miscellaneous Test Crossmatch 10/01/16 10/01/16 10/02/16 17:39 23:32 00:59 WBC RBC Hgb Hct MCV MCH MCHC RDW Plt Count Lymph % (Auto) [place] % (Auto) Lymph # [place] # Baso # Seg Neutrophils % Seg Neuts % (Manual) Lymphocytes % (Manual) Monocytes % (Manual) Eosinophils % (Manual) Basophils % (Manual) Nucleated RBC % Seg Neutrophils # Seg Neutrophils # Man Lymphocytes # (Manual) Monocytes # (Manual) Eosinophils # (Manual) Basophils # (Manual) PT INR Fibrinogen dRVVT Confirm Interp Factor V Activity POC ABG pH POC ABG pCO2 POC ABG pO2 ABG pO2 ABG HCO3 ABG Base Excess ABG Hemoglobin Oxyhemoglobin Sodium Potassium Chloride Carbon Dioxide BUN Creatinine Glucose POC Glucose 107 H 52 L 145 H Lactic Acid Calcium Phosphorus Magnesium Direct Bilirubin AST ALT Alkaline Phosphatase Lactate Dehydrogenase Troponin T C-Reactive Protein Total Protein Albumin Prealbumin Triglycerides Cholesterol LDL Cholesterol Direct HDL Cholesterol PTH Intact Urine pH Urine WBC (Auto) Urine Creatinine Urine Total Protein Fluid Total Protein Vancomycin Trough Rheumatoid Factor Complement C4 Miscellaneous Test Crossmatch 10/02/16 10/02/16 10/02/16 10:30 10:50 10:50 WBC 14.7 H RBC 2.76 L Hgb 7.4 L Hct 23.6 L MCV MCH 27 L MCHC RDW 20.2 H Plt Count 79 L Lymph % (Auto) [place] % (Auto) Lymph # [place] # Baso # Seg Neutrophils % Seg Neuts % (Manual) 86.0 H Lymphocytes % (Manual) 6.0 L Monocytes % (Manual) Eosinophils % (Manual) Basophils % (Manual) Nucleated RBC % Seg Neutrophils # Seg Neutrophils # Man 12.6 H Lymphocytes # (Manual) 0.9 L Monocytes # (Manual) Eosinophils # (Manual) Basophils # (Manual) PT INR Fibrinogen dRVVT Confirm Interp Factor V Activity POC ABG pH 7.486 H POC ABG pCO2 30.1 L POC ABG pO2 108 H ABG pO2 ABG HCO3 ABG Base Excess ABG Hemoglobin Oxyhemoglobin Sodium 131 L Potassium 3.4 L Chloride 89.9 L Carbon Dioxide BUN 26 H Creatinine 2.6 H Glucose POC Glucose Lactic Acid Calcium 7.0 L Phosphorus Magnesium Direct Bilirubin AST ALT Alkaline Phosphatase Lactate Dehydrogenase Troponin T C-Reactive Protein Total Protein Albumin Prealbumin Triglycerides Cholesterol LDL Cholesterol Direct HDL Cholesterol PTH Intact Urine pH Urine WBC (Auto) Urine Creatinine Urine Total Protein Fluid Total Protein Vancomycin Trough Rheumatoid Factor Complement C4 Miscellaneous Test Crossmatch 10/02/16 10/03/16 10/03/16 23:45 00:45 05:10 WBC 12.9 H RBC 2.77 L Hgb 7.6 L Hct 23.7 L MCV MCH 27 L MCHC RDW 19.7 H Plt Count 89 L Lymph % (Auto) [place] % (Auto) Lymph # [place] # Baso # Seg Neutrophils % Seg Neuts % (Manual) Lymphocytes % (Manual) 8.0 L Monocytes % (Manual) Eosinophils % (Manual) Basophils % (Manual) Nucleated RBC % Seg Neutrophils # 11.9 H Seg Neutrophils # Man Lymphocytes # (Manual) 1.0 L Monocytes # (Manual) Eosinophils # (Manual) Basophils # (Manual) PT INR Fibrinogen dRVVT Confirm Interp Factor V Activity POC ABG pH POC ABG pCO2 POC ABG pO2 ABG pO2 ABG HCO3 ABG Base Excess ABG Hemoglobin Oxyhemoglobin Sodium Potassium Chloride Carbon Dioxide BUN Creatinine Glucose POC Glucose 55 L 199 H Lactic Acid Calcium Phosphorus Magnesium Direct Bilirubin AST ALT Alkaline Phosphatase Lactate Dehydrogenase Troponin T C-Reactive Protein Total Protein Albumin Prealbumin Triglycerides Cholesterol LDL Cholesterol Direct HDL Cholesterol PTH Intact Urine pH Urine WBC (Auto) Urine Creatinine Urine Total Protein Fluid Total Protein Vancomycin Trough Rheumatoid Factor Complement C4 Miscellaneous Test Crossmatch 10/03/16 10/03/16 10/03/16 05:10 12:14 13:18 WBC RBC Hgb Hct MCV MCH MCHC RDW Plt Count Lymph % (Auto) [place] % (Auto) Lymph # [place] # Baso # Seg Neutrophils % Seg Neuts % (Manual) Lymphocytes % (Manual) Monocytes % (Manual) Eosinophils % (Manual) Basophils % (Manual) Nucleated RBC % Seg Neutrophils # Seg Neutrophils # Man Lymphocytes # (Manual) Monocytes # (Manual) Eosinophils # (Manual) Basophils # (Manual) PT INR Fibrinogen dRVVT Confirm Interp Factor V Activity POC ABG pH POC ABG pCO2 POC ABG pO2 ABG pO2 ABG HCO3 ABG Base Excess ABG Hemoglobin Oxyhemoglobin Sodium 129 L Potassium 3.3 L Chloride 88.8 L Carbon Dioxide 20 L BUN 29 H Creatinine 2.8 H Glucose POC Glucose 68 L 127 H Lactic Acid Calcium 7.2 L Phosphorus Magnesium Direct Bilirubin AST ALT Alkaline Phosphatase Lactate Dehydrogenase Troponin T C-Reactive Protein Total Protein Albumin Prealbumin Triglycerides Cholesterol LDL Cholesterol Direct HDL Cholesterol PTH Intact Urine pH Urine WBC (Auto) Urine Creatinine Urine Total Protein Fluid Total Protein Vancomycin Trough Rheumatoid Factor Complement C4 Miscellaneous Test Crossmatch 10/03/16 10/03/16 10/03/16 14:42 18:21 19:09 WBC RBC Hgb Hct MCV MCH MCHC RDW Plt Count Lymph % (Auto) [place] % (Auto) Lymph # [place] # Baso # Seg Neutrophils % Seg Neuts % (Manual) Lymphocytes % (Manual) Monocytes % (Manual) Eosinophils % (Manual) Basophils % (Manual) Nucleated RBC % Seg Neutrophils # Seg Neutrophils # Man Lymphocytes # (Manual) Monocytes # (Manual) Eosinophils # (Manual) Basophils # (Manual) PT INR Fibrinogen dRVVT Confirm Interp Factor V Activity POC ABG pH 7.499 H POC ABG pCO2 28.4 L POC ABG pO2 44 L ABG pO2 ABG HCO3 ABG Base Excess ABG Hemoglobin Oxyhemoglobin Sodium Potassium Chloride Carbon Dioxide BUN Creatinine Glucose POC Glucose 64 L 205 H Lactic Acid Calcium Phosphorus Magnesium Direct Bilirubin AST ALT Alkaline Phosphatase Lactate Dehydrogenase Troponin T C-Reactive Protein Total Protein Albumin Prealbumin Triglycerides Cholesterol LDL Cholesterol Direct HDL Cholesterol PTH Intact Urine pH Urine WBC (Auto) Urine Creatinine Urine Total Protein Fluid Total Protein Vancomycin Trough Rheumatoid Factor Complement C4 Miscellaneous Test Crossmatch 10/03/16 10/04/16 10/04/16 23:33 04:18 06:30 WBC RBC 2.54 L Hgb 7.1 L Hct 21.7 L MCV MCH MCHC RDW 19.5 H Plt Count 76 L Lymph % (Auto) [place] % (Auto) Lymph # [place] # Baso # Seg Neutrophils % Seg Neuts % (Manual) 88.0 H Lymphocytes % (Manual) 6.0 L Monocytes % (Manual) Eosinophils % (Manual) Basophils % (Manual) Nucleated RBC % Seg Neutrophils # Seg Neutrophils # Man 8.8 H Lymphocytes # (Manual) 0.6 L Monocytes # (Manual) Eosinophils # (Manual) Basophils # (Manual) PT INR Fibrinogen dRVVT Confirm Interp Factor V Activity POC ABG pH 7.461 H POC ABG pCO2 33.6 L POC ABG pO2 211 H ABG pO2 ABG HCO3 ABG Base Excess ABG Hemoglobin Oxyhemoglobin Sodium Potassium Chloride Carbon Dioxide BUN Creatinine Glucose POC Glucose 136 H Lactic Acid Calcium Phosphorus Magnesium Direct Bilirubin AST ALT Alkaline Phosphatase Lactate Dehydrogenase Troponin T C-Reactive Protein Total Protein Albumin Prealbumin Triglycerides Cholesterol LDL Cholesterol Direct HDL Cholesterol PTH Intact Urine pH Urine WBC (Auto) Urine Creatinine Urine Total Protein Fluid Total Protein Vancomycin Trough Rheumatoid Factor Complement C4 Miscellaneous Test Crossmatch 10/04/16 10/04/16 10/04/16 06:30 11:45 17:54 WBC RBC Hgb Hct MCV MCH MCHC RDW Plt Count Lymph % (Auto) [place] % (Auto) Lymph # [place] # Baso # Seg Neutrophils % Seg Neuts % (Manual) Lymphocytes % (Manual) Monocytes % (Manual) Eosinophils % (Manual) Basophils % (Manual) Nucleated RBC % Seg Neutrophils # Seg Neutrophils # Man Lymphocytes # (Manual) Monocytes # (Manual) Eosinophils # (Manual) Basophils # (Manual) PT INR Fibrinogen dRVVT Confirm Interp Factor V Activity POC ABG pH POC ABG pCO2 POC ABG pO2 ABG pO2 ABG HCO3 ABG Base Excess ABG Hemoglobin Oxyhemoglobin Sodium 128 L Potassium Chloride 87.4 L Carbon Dioxide 20 L BUN 34 H Creatinine 2.9 H Glucose 127 H POC Glucose 158 H 160 H Lactic Acid Calcium 7.4 L Phosphorus Magnesium Direct Bilirubin AST ALT Alkaline Phosphatase Lactate Dehydrogenase Troponin T C-Reactive Protein Total Protein Albumin Prealbumin Triglycerides Cholesterol LDL Cholesterol Direct HDL Cholesterol PTH Intact Urine pH Urine WBC (Auto) Urine Creatinine Urine Total Protein Fluid Total Protein Vancomycin Trough Rheumatoid Factor Complement C4 Miscellaneous Test Crossmatch 10/04/16 10/05/16 10/05/16 23:25 04:30 05:00 WBC RBC 2.64 L Hgb 7.5 L Hct 22.6 L MCV MCH MCHC RDW 19.3 H Plt Count 80 L Lymph % (Auto) [place] % (Auto) Lymph # [place] # Baso # Seg Neutrophils % Seg Neuts % (Manual) Lymphocytes % (Manual) 12.0 L Monocytes % (Manual) Eosinophils % (Manual) Basophils % (Manual) Nucleated RBC % Seg Neutrophils # Seg Neutrophils # Man Lymphocytes # (Manual) Monocytes # (Manual) Eosinophils # (Manual) Basophils # (Manual) PT INR Fibrinogen dRVVT Confirm Interp Factor V Activity POC ABG pH 7.475 H POC ABG pCO2 33.3 L POC ABG pO2 140 H ABG pO2 ABG HCO3 ABG Base Excess ABG Hemoglobin Oxyhemoglobin Sodium Potassium Chloride Carbon Dioxide BUN Creatinine Glucose POC Glucose 141 H Lactic Acid Calcium Phosphorus Magnesium Direct Bilirubin AST ALT Alkaline Phosphatase Lactate Dehydrogenase Troponin T C-Reactive Protein Total Protein Albumin Prealbumin Triglycerides Cholesterol LDL Cholesterol Direct HDL Cholesterol PTH Intact Urine pH Urine WBC (Auto) Urine Creatinine Urine Total Protein Fluid Total Protein Vancomycin Trough Rheumatoid Factor Complement C4 Miscellaneous Test Crossmatch 10/05/16 10/05/16 10/05/16 05:00 05:09 12:58 WBC RBC Hgb Hct MCV MCH MCHC RDW Plt Count Lymph % (Auto) [place] % (Auto) Lymph # [place] # Baso # Seg Neutrophils % Seg Neuts % (Manual) Lymphocytes % (Manual) Monocytes % (Manual) Eosinophils % (Manual) Basophils % (Manual) Nucleated RBC % Seg Neutrophils # Seg Neutrophils # Man Lymphocytes # (Manual) Monocytes # (Manual) Eosinophils # (Manual) Basophils # (Manual) PT INR Fibrinogen dRVVT Confirm Interp Factor V Activity POC ABG pH POC ABG pCO2 POC ABG pO2 ABG pO2 ABG HCO3 ABG Base Excess ABG Hemoglobin Oxyhemoglobin Sodium 131 L Potassium Chloride 94.0 L Carbon Dioxide 20 L BUN 22 H Creatinine 2.0 H Glucose 123 H POC Glucose 166 H 179 H Lactic Acid Calcium 7.7 L Phosphorus 2.20 L D Magnesium Direct Bilirubin AST ALT Alkaline Phosphatase Lactate Dehydrogenase Troponin T C-Reactive Protein Total Protein Albumin Prealbumin Triglycerides Cholesterol LDL Cholesterol Direct HDL Cholesterol PTH Intact Urine pH Urine WBC (Auto) Urine Creatinine Urine Total Protein Fluid Total Protein Vancomycin Trough Rheumatoid Factor Complement C4 Miscellaneous Test Crossmatch 10/05/16 10/05/16 10/05/16 15:50 18:53 23:12 WBC RBC Hgb Hct MCV MCH MCHC RDW Plt Count Lymph % (Auto) [place] % (Auto) Lymph # [place] # Baso # Seg Neutrophils % Seg Neuts % (Manual) Lymphocytes % (Manual) Monocytes % (Manual) Eosinophils % (Manual) Basophils % (Manual) Nucleated RBC % Seg Neutrophils # Seg Neutrophils # Man Lymphocytes # (Manual) Monocytes # (Manual) Eosinophils # (Manual) Basophils # (Manual) PT INR Fibrinogen dRVVT Confirm Interp Factor V Activity POC ABG pH POC ABG pCO2 POC ABG pO2 ABG pO2 ABG HCO3 ABG Base Excess ABG Hemoglobin Oxyhemoglobin Sodium Potassium Chloride Carbon Dioxide BUN Creatinine Glucose POC Glucose 150 H 164 H Lactic Acid Calcium Phosphorus Magnesium Direct Bilirubin AST ALT Alkaline Phosphatase Lactate Dehydrogenase Troponin T C-Reactive Protein Total Protein Albumin Prealbumin Triglycerides Cholesterol LDL Cholesterol Direct HDL Cholesterol PTH Intact Urine pH Urine WBC (Auto) Urine Creatinine Urine Total Protein Fluid Total Protein Vancomycin Trough Rheumatoid Factor Complement C4 Miscellaneous Test Crossmatch See Detail 10/06/16 10/06/16 10/06/16 03:50 03:50 04:53 WBC RBC 3.00 L Hgb 8.6 L Hct 25.8 L MCV MCH MCHC RDW 17.9 H Plt Count 65 L Lymph % (Auto) [place] % (Auto) Lymph # [place] # Baso # Seg Neutrophils % Seg Neuts % (Manual) 30.0 L Lymphocytes % (Manual) 5.0 L Monocytes % (Manual) Eosinophils % (Manual) Basophils % (Manual) Nucleated RBC % Seg Neutrophils # Seg Neutrophils # Man Lymphocytes # (Manual) 0.4 L Monocytes # (Manual) Eosinophils # (Manual) Basophils # (Manual) PT INR Fibrinogen dRVVT Confirm Interp Factor V Activity POC ABG pH 7.310 L POC ABG pCO2 49.0 H POC ABG pO2 ABG pO2 ABG HCO3 ABG Base Excess ABG Hemoglobin Oxyhemoglobin Sodium 133 L Potassium Chloride 95.9 L Carbon Dioxide BUN 26 H Creatinine 2.0 H Glucose 116 H POC Glucose Lactic Acid Calcium 7.8 L Phosphorus Magnesium Direct Bilirubin AST ALT Alkaline Phosphatase Lactate Dehydrogenase Troponin T C-Reactive Protein Total Protein Albumin Prealbumin Triglycerides Cholesterol LDL Cholesterol Direct HDL Cholesterol PTH Intact Urine pH Urine WBC (Auto) Urine Creatinine Urine Total Protein Fluid Total Protein Vancomycin Trough Rheumatoid Factor Complement C4 Miscellaneous Test Crossmatch 10/06/16 10/06/16 10/06/16 05:23 11:52 18:34 WBC RBC Hgb Hct MCV MCH MCHC RDW Plt Count Lymph % (Auto) [place] % (Auto) Lymph # [place] # Baso # Seg Neutrophils % Seg Neuts % (Manual) Lymphocytes % (Manual) Monocytes % (Manual) Eosinophils % (Manual) Basophils % (Manual) Nucleated RBC % Seg Neutrophils # Seg Neutrophils # Man Lymphocytes # (Manual) Monocytes # (Manual) Eosinophils # (Manual) Basophils # (Manual) PT INR Fibrinogen dRVVT Confirm Interp Factor V Activity POC ABG pH POC ABG pCO2 POC ABG pO2 ABG pO2 ABG HCO3 ABG Base Excess ABG Hemoglobin Oxyhemoglobin Sodium Potassium Chloride Carbon Dioxide BUN Creatinine Glucose POC Glucose 126 H 116 H 129 H Lactic Acid Calcium Phosphorus Magnesium Direct Bilirubin AST ALT Alkaline Phosphatase Lactate Dehydrogenase Troponin T C-Reactive Protein Total Protein Albumin Prealbumin Triglycerides Cholesterol LDL Cholesterol Direct HDL Cholesterol PTH Intact Urine pH Urine WBC (Auto) Urine Creatinine Urine Total Protein Fluid Total Protein Vancomycin Trough Rheumatoid Factor Complement C4 Miscellaneous Test Crossmatch 10/07/16 10/07/16 10/07/16 03:45 05:00 10:00 WBC 17.0 H RBC 2.68 L Hgb 7.3 L Hct 25.3 L MCV MCH 27 L MCHC 29 L RDW 19.6 H Plt Count 74 L Lymph % (Auto) [place] % (Auto) Lymph # [place] # Baso # Seg Neutrophils % Seg Neuts % (Manual) Lymphocytes % (Manual) 12.0 L Monocytes % (Manual) Eosinophils % (Manual) Basophils % (Manual) Nucleated RBC % 4.0 H Seg Neutrophils # Seg Neutrophils # Man 10.7 H Lymphocytes # (Manual) Monocytes # (Manual) Eosinophils # (Manual) Basophils # (Manual) PT INR Fibrinogen dRVVT Confirm Interp Factor V Activity POC ABG pH POC ABG pCO2 POC ABG pO2 ABG pO2 ABG HCO3 ABG Base Excess ABG Hemoglobin Oxyhemoglobin Sodium 130 L Potassium 3.2 L Chloride 93.9 L Carbon Dioxide 20 L BUN 44 H Creatinine 2.7 H Glucose 129 H POC Glucose Lactic Acid Calcium 7.4 L Phosphorus Magnesium Direct Bilirubin AST ALT 6 L Alkaline Phosphatase 195 H Lactate Dehydrogenase Troponin T C-Reactive Protein Total Protein 4.9 L Albumin 1.0 L Prealbumin Triglycerides Cholesterol LDL Cholesterol Direct HDL Cholesterol PTH Intact Urine pH Urine WBC (Auto) Urine Creatinine Urine Total Protein Fluid Total Protein Vancomycin Trough Rheumatoid Factor Complement C4 Miscellaneous Test Flexitest 1 H Crossmatch 10/07/16 10/07/16 10/07/16 10:00 11:24 18:10 WBC RBC Hgb Hct MCV MCH MCHC RDW Plt Count Lymph % (Auto) [place] % (Auto) Lymph # [place] # Baso # Seg Neutrophils % Seg Neuts % (Manual) Lymphocytes % (Manual) Monocytes % (Manual) Eosinophils % (Manual) Basophils % (Manual) Nucleated RBC % Seg Neutrophils # Seg Neutrophils # Man Lymphocytes # (Manual) Monocytes # (Manual) Eosinophils # (Manual) Basophils # (Manual) PT INR Fibrinogen dRVVT Confirm Interp Factor V Activity POC ABG pH POC ABG pCO2 POC ABG pO2 ABG pO2 ABG HCO3 ABG Base Excess ABG Hemoglobin Oxyhemoglobin Sodium Potassium Chloride Carbon Dioxide BUN Creatinine Glucose POC Glucose 116 H 130 H Lactic Acid Calcium Phosphorus Magnesium Direct Bilirubin AST ALT Alkaline Phosphatase Lactate Dehydrogenase Troponin T C-Reactive Protein 19.40 H Total Protein Albumin Prealbumin Triglycerides Cholesterol LDL Cholesterol Direct HDL Cholesterol PTH Intact Urine pH Urine WBC (Auto) Urine Creatinine Urine Total Protein Fluid Total Protein Vancomycin Trough Rheumatoid Factor Complement C4 Miscellaneous Test Crossmatch 10/07/16 10/08/16 10/08/16 18:30 00:00 04:00 WBC RBC Hgb Hct MCV MCH MCHC RDW Plt Count Lymph % (Auto) [place] % (Auto) Lymph # [place] # Baso # Seg Neutrophils % Seg Neuts % (Manual) Lymphocytes % (Manual) Monocytes % (Manual) Eosinophils % (Manual) Basophils % (Manual) Nucleated RBC % Seg Neutrophils # Seg Neutrophils # Man Lymphocytes # (Manual) Monocytes # (Manual) Eosinophils # (Manual) Basophils # (Manual) PT INR Fibrinogen dRVVT Confirm Interp Factor V Activity POC ABG pH POC ABG pCO2 POC ABG pO2 ABG pO2 ABG HCO3 ABG Base Excess ABG Hemoglobin Oxyhemoglobin Sodium 132 L Potassium 3.3 L Chloride 93.6 L Carbon Dioxide 17 L BUN 59 H Creatinine 2.7 H Glucose 121 H POC Glucose 122 H Lactic Acid Calcium 7.6 L Phosphorus Magnesium Direct Bilirubin AST ALT Alkaline Phosphatase Lactate Dehydrogenase Troponin T C-Reactive Protein Total Protein Albumin Prealbumin Triglycerides Cholesterol LDL Cholesterol Direct HDL Cholesterol PTH Intact Urine pH Urine WBC (Auto) > 182.0 H Urine Creatinine Urine Total Protein Fluid Total Protein Vancomycin Trough Rheumatoid Factor Complement C4 Miscellaneous Test Crossmatch 10/08/16 10/08/16 10/08/16 04:30 05:30 11:51 WBC RBC 5.15 H Hgb 14.4 H D Hct 44.5 H D MCV MCH MCHC RDW 19.5 H Plt Count 56 L Lymph % (Auto) [place] % (Auto) Lymph # [place] # Baso # Seg Neutrophils % Seg Neuts % (Manual) 24.0 L Lymphocytes % (Manual) 8.0 L Monocytes % (Manual) Eosinophils % (Manual) Basophils % (Manual) Nucleated RBC % 9.0 H Seg Neutrophils # Seg Neutrophils # Man Lymphocytes # (Manual) 0.7 L Monocytes # (Manual) Eosinophils # (Manual) Basophils # (Manual) PT INR Fibrinogen dRVVT Confirm Interp Factor V Activity POC ABG pH POC ABG pCO2 POC ABG pO2 ABG pO2 ABG HCO3 ABG Base Excess ABG Hemoglobin Oxyhemoglobin Sodium Potassium Chloride Carbon Dioxide BUN Creatinine Glucose POC Glucose 125 H 150 H Lactic Acid Calcium Phosphorus Magnesium Direct Bilirubin AST ALT Alkaline Phosphatase Lactate Dehydrogenase Troponin T C-Reactive Protein Total Protein Albumin Prealbumin Triglycerides Cholesterol LDL Cholesterol Direct HDL Cholesterol PTH Intact Urine pH Urine WBC (Auto) Urine Creatinine Urine Total Protein Fluid Total Protein Vancomycin Trough Rheumatoid Factor Complement C4 Miscellaneous Test Crossmatch 10/08/16 10/08/16 10/08/16 12:49 17:07 19:30 WBC RBC Hgb 7.1 L D Hct 22.4 L D MCV MCH MCHC RDW Plt Count Lymph % (Auto) [place] % (Auto) Lymph # [place] # Baso # Seg Neutrophils % Seg Neuts % (Manual) Lymphocytes % (Manual) Monocytes % (Manual) Eosinophils % (Manual) Basophils % (Manual) Nucleated RBC % Seg Neutrophils # Seg Neutrophils # Man Lymphocytes # (Manual) Monocytes # (Manual) Eosinophils # (Manual) Basophils # (Manual) PT INR Fibrinogen dRVVT Confirm Interp Factor V Activity POC ABG pH POC ABG pCO2 28.2 L POC ABG pO2 111 H ABG pO2 ABG HCO3 ABG Base Excess ABG Hemoglobin Oxyhemoglobin Sodium Potassium Chloride Carbon Dioxide BUN Creatinine Glucose POC Glucose 145 H Lactic Acid Calcium Phosphorus Magnesium Direct Bilirubin AST ALT Alkaline Phosphatase Lactate Dehydrogenase Troponin T C-Reactive Protein Total Protein Albumin Prealbumin Triglycerides Cholesterol LDL Cholesterol Direct HDL Cholesterol PTH Intact Urine pH Urine WBC (Auto) Urine Creatinine Urine Total Protein Fluid Total Protein Vancomycin Trough Rheumatoid Factor Complement C4 Miscellaneous Test Crossmatch 10/08/16 10/09/16 10/09/16 19:30 03:45 03:45 WBC 12.6 H RBC 2.36 L Hgb 6.7 L Hct 21.1 L MCV MCH MCHC RDW 19.5 H Plt Count 75 L Lymph % (Auto) [place] % (Auto) Lymph # [place] # Baso # Seg Neutrophils % Seg Neuts % (Manual) Lymphocytes % (Manual) Monocytes % (Manual) 10.0 H Eosinophils % (Manual) Basophils % (Manual) Nucleated RBC % 3.0 H Seg Neutrophils # Seg Neutrophils # Man Lymphocytes # (Manual) Monocytes # (Manual) 1.3 H Eosinophils # (Manual) Basophils # (Manual) PT 18.0 H INR 1.41 H Fibrinogen dRVVT Confirm Interp Factor V Activity POC ABG pH POC ABG pCO2 POC ABG pO2 ABG pO2 ABG HCO3 ABG Base Excess ABG Hemoglobin Oxyhemoglobin Sodium 135 L Potassium Chloride Carbon Dioxide 17 L BUN 81 H Creatinine 3.2 H Glucose 109 H POC Glucose Lactic Acid Calcium 7.4 L Phosphorus 4.60 H D Magnesium Direct Bilirubin AST ALT Alkaline Phosphatase Lactate Dehydrogenase Troponin T C-Reactive Protein Total Protein Albumin Prealbumin Triglycerides Cholesterol LDL Cholesterol Direct HDL Cholesterol PTH Intact Urine pH Urine WBC (Auto) Urine Creatinine Urine Total Protein Fluid Total Protein Vancomycin Trough Rheumatoid Factor Complement C4 Miscellaneous Test Crossmatch 10/09/16 10/09/16 10/09/16 03:45 05:14 07:20 WBC RBC Hgb Hct MCV MCH MCHC RDW Plt Count Lymph % (Auto) [place] % (Auto) Lymph # [place] # Baso # Seg Neutrophils % Seg Neuts % (Manual) Lymphocytes % (Manual) Monocytes % (Manual) Eosinophils % (Manual) Basophils % (Manual) Nucleated RBC % Seg Neutrophils # Seg Neutrophils # Man Lymphocytes # (Manual) Monocytes # (Manual) Eosinophils # (Manual) Basophils # (Manual) PT 19.0 H INR 1.51 H Fibrinogen dRVVT Confirm Interp Factor V Activity POC ABG pH POC ABG pCO2 POC ABG pO2 ABG pO2 ABG HCO3 ABG Base Excess ABG Hemoglobin Oxyhemoglobin Sodium Potassium Chloride Carbon Dioxide BUN Creatinine Glucose POC Glucose 151 H Lactic Acid Calcium Phosphorus Magnesium Direct Bilirubin AST ALT Alkaline Phosphatase Lactate Dehydrogenase Troponin T C-Reactive Protein Total Protein Albumin Prealbumin Triglycerides Cholesterol LDL Cholesterol Direct HDL Cholesterol PTH Intact Urine pH Urine WBC (Auto) Urine Creatinine Urine Total Protein Fluid Total Protein Vancomycin Trough Rheumatoid Factor Complement C4 Miscellaneous Test Crossmatch See Detail 10/09/16 10/09/16 10/09/16 11:46 16:20 16:43 WBC RBC Hgb 7.2 L Hct 22.2 L MCV MCH MCHC RDW Plt Count Lymph % (Auto) [place] % (Auto) Lymph # [place] # Baso # Seg Neutrophils % Seg Neuts % (Manual) Lymphocytes % (Manual) Monocytes % (Manual) Eosinophils % (Manual) Basophils % (Manual) Nucleated RBC % Seg Neutrophils # Seg Neutrophils # Man Lymphocytes # (Manual) Monocytes # (Manual) Eosinophils # (Manual) Basophils # (Manual) PT INR Fibrinogen dRVVT Confirm Interp Factor V Activity POC ABG pH POC ABG pCO2 POC ABG pO2 ABG pO2 ABG HCO3 ABG Base Excess ABG Hemoglobin Oxyhemoglobin Sodium Potassium Chloride Carbon Dioxide BUN Creatinine Glucose POC Glucose 133 H 141 H Lactic Acid Calcium Phosphorus Magnesium Direct Bilirubin AST ALT Alkaline Phosphatase Lactate Dehydrogenase Troponin T C-Reactive Protein Total Protein Albumin Prealbumin Triglycerides Cholesterol LDL Cholesterol Direct HDL Cholesterol PTH Intact Urine pH Urine WBC (Auto) Urine Creatinine Urine Total Protein Fluid Total Protein Vancomycin Trough Rheumatoid Factor Complement C4 Miscellaneous Test Crossmatch 10/10/16 10/10/16 10/10/16 05:00 05:00 11:19 WBC 18.5 H RBC 2.19 L Hgb 6.4 L Hct 19.6 L* MCV MCH MCHC RDW 19.3 H Plt Count 93 L Lymph % (Auto) [place] % (Auto) Lymph # [place] # Baso # Seg Neutrophils % Seg Neuts % (Manual) Lymphocytes % (Manual) 10.0 L Monocytes % (Manual) Eosinophils % (Manual) Basophils % (Manual) Nucleated RBC % 4.0 H Seg Neutrophils # Seg Neutrophils # Man 11.3 H Lymphocytes # (Manual) Monocytes # (Manual) Eosinophils # (Manual) Basophils # (Manual) PT INR Fibrinogen dRVVT Confirm Interp Factor V Activity POC ABG pH POC ABG pCO2 POC ABG pO2 ABG pO2 ABG HCO3 ABG Base Excess ABG Hemoglobin Oxyhemoglobin Sodium Potassium 5.7 H D Chloride Carbon Dioxide 16 L BUN 94 H Creatinine 3.1 H Glucose 131 H POC Glucose 153 H Lactic Acid Calcium 8.2 L Phosphorus 5.10 H Magnesium 2.40 H Direct Bilirubin 0.3 H AST ALT < 5 L Alkaline Phosphatase 319 H Lactate Dehydrogenase Troponin T C-Reactive Protein Total Protein 5.1 L Albumin 1.0 L Prealbumin Triglycerides Cholesterol LDL Cholesterol Direct HDL Cholesterol PTH Intact Urine pH Urine WBC (Auto) Urine Creatinine Urine Total Protein Fluid Total Protein Vancomycin Trough Rheumatoid Factor Complement C4 Miscellaneous Test Crossmatch 10/10/16 10/10/16 10/11/16 17:50 23:30 04:15 WBC RBC Hgb Hct MCV MCH MCHC RDW Plt Count Lymph % (Auto) [place] % (Auto) Lymph # [place] # Baso # Seg Neutrophils % Seg Neuts % (Manual) Lymphocytes % (Manual) Monocytes % (Manual) Eosinophils % (Manual) Basophils % (Manual) Nucleated RBC % Seg Neutrophils # Seg Neutrophils # Man Lymphocytes # (Manual) Monocytes # (Manual) Eosinophils # (Manual) Basophils # (Manual) PT INR Fibrinogen dRVVT Confirm Interp Factor V Activity POC ABG pH POC ABG pCO2 POC ABG pO2 ABG pO2 ABG HCO3 ABG Base Excess ABG Hemoglobin Oxyhemoglobin Sodium Potassium Chloride 96.4 L Carbon Dioxide 21 L BUN 57 H Creatinine 2.1 H Glucose 151 H POC Glucose 146 H 141 H Lactic Acid Calcium 8.3 L Phosphorus Magnesium Direct Bilirubin AST ALT Alkaline Phosphatase Lactate Dehydrogenase Troponin T C-Reactive Protein Total Protein Albumin Prealbumin Triglycerides Cholesterol LDL Cholesterol Direct HDL Cholesterol PTH Intact Urine pH Urine WBC (Auto) Urine Creatinine Urine Total Protein Fluid Total Protein Vancomycin Trough Rheumatoid Factor Complement C4 Miscellaneous Test Crossmatch 10/11/16 10/11/16 10/11/16 04:15 04:15 05:30 WBC 28.3 H RBC 3.12 L Hgb 9.3 L Hct 28.7 L D MCV MCH MCHC RDW 17.7 H Plt Count 128 L Lymph % (Auto) [place] % (Auto) Lymph # [place] # Baso # Seg Neutrophils % Seg Neuts % (Manual) Lymphocytes % (Manual) Monocytes % (Manual) Eosinophils % (Manual) Basophils % (Manual) Nucleated RBC % Seg Neutrophils # Seg Neutrophils # Man Lymphocytes # (Manual) Monocytes # (Manual) Eosinophils # (Manual) Basophils # (Manual) PT INR Fibrinogen dRVVT Confirm Interp Factor V Activity POC ABG pH POC ABG pCO2 POC ABG pO2 ABG pO2 ABG HCO3 ABG Base Excess ABG Hemoglobin Oxyhemoglobin Sodium Potassium Chloride Carbon Dioxide BUN Creatinine Glucose POC Glucose 167 H Lactic Acid Calcium Phosphorus Magnesium Direct Bilirubin AST ALT Alkaline Phosphatase Lactate Dehydrogenase Troponin T C-Reactive Protein 15.80 H Total Protein Albumin Prealbumin Triglycerides Cholesterol LDL Cholesterol Direct HDL Cholesterol PTH Intact Urine pH Urine WBC (Auto) Urine Creatinine Urine Total Protein Fluid Total Protein Vancomycin Trough Rheumatoid Factor Complement C4 Miscellaneous Test Crossmatch 10/11/16 10/11/16 10/11/16 11:40 15:49 23:57 WBC RBC Hgb Hct MCV MCH MCHC RDW Plt Count Lymph % (Auto) [place] % (Auto) Lymph # [place] # Baso # Seg Neutrophils % Seg Neuts % (Manual) Lymphocytes % (Manual) Monocytes % (Manual) Eosinophils % (Manual) Basophils % (Manual) Nucleated RBC % Seg Neutrophils # Seg Neutrophils # Man Lymphocytes # (Manual) Monocytes # (Manual) Eosinophils # (Manual) Basophils # (Manual) PT INR Fibrinogen dRVVT Confirm Interp Factor V Activity POC ABG pH POC ABG pCO2 POC ABG pO2 ABG pO2 ABG HCO3 ABG Base Excess ABG Hemoglobin Oxyhemoglobin Sodium Potassium Chloride Carbon Dioxide BUN Creatinine Glucose POC Glucose 139 H 168 H 161 H Lactic Acid Calcium Phosphorus Magnesium Direct Bilirubin AST ALT Alkaline Phosphatase Lactate Dehydrogenase Troponin T C-Reactive Protein Total Protein Albumin Prealbumin Triglycerides Cholesterol LDL Cholesterol Direct HDL Cholesterol PTH Intact Urine pH Urine WBC (Auto) Urine Creatinine Urine Total Protein Fluid Total Protein Vancomycin Trough Rheumatoid Factor Complement C4 Miscellaneous Test Crossmatch 10/12/16 10/12/16 10/12/16 04:40 04:40 05:44 WBC 22.5 H RBC 2.88 L Hgb 8.8 L Hct 26.8 L MCV MCH MCHC RDW 17.8 H Plt Count Lymph % (Auto) [place] % (Auto) Lymph # [place] # Baso # Seg Neutrophils % Seg Neuts % (Manual) Lymphocytes % (Manual) Monocytes % (Manual) Eosinophils % (Manual) Basophils % (Manual) Nucleated RBC % Seg Neutrophils # Seg Neutrophils # Man Lymphocytes # (Manual) Monocytes # (Manual) Eosinophils # (Manual) Basophils # (Manual) PT INR Fibrinogen dRVVT Confirm Interp Factor V Activity POC ABG pH POC ABG pCO2 POC ABG pO2 ABG pO2 ABG HCO3 ABG Base Excess ABG Hemoglobin Oxyhemoglobin Sodium 134 L Potassium Chloride 93.0 L Carbon Dioxide BUN 74 H Creatinine 2.5 H Glucose 137 H POC Glucose 158 H Lactic Acid Calcium 8.2 L Phosphorus Magnesium Direct Bilirubin AST ALT Alkaline Phosphatase Lactate Dehydrogenase Troponin T C-Reactive Protein Total Protein Albumin Prealbumin Triglycerides Cholesterol LDL Cholesterol Direct HDL Cholesterol PTH Intact Urine pH Urine WBC (Auto) Urine Creatinine Urine Total Protein Fluid Total Protein Vancomycin Trough Rheumatoid Factor Complement C4 Miscellaneous Test Crossmatch 10/12/16 10/12/16 10/12/16 12:27 18:18 23:46 WBC RBC Hgb Hct MCV MCH MCHC RDW Plt Count Lymph % (Auto) [place] % (Auto) Lymph # [place] # Baso # Seg Neutrophils % Seg Neuts % (Manual) Lymphocytes % (Manual) Monocytes % (Manual) Eosinophils % (Manual) Basophils % (Manual) Nucleated RBC % Seg Neutrophils # Seg Neutrophils # Man Lymphocytes # (Manual) Monocytes # (Manual) Eosinophils # (Manual) Basophils # (Manual) PT INR Fibrinogen dRVVT Confirm Interp Factor V Activity POC ABG pH POC ABG pCO2 POC ABG pO2 ABG pO2 ABG HCO3 ABG Base Excess ABG Hemoglobin Oxyhemoglobin Sodium Potassium Chloride Carbon Dioxide BUN Creatinine Glucose POC Glucose 153 H 140 H 150 H Lactic Acid Calcium Phosphorus Magnesium Direct Bilirubin AST ALT Alkaline Phosphatase Lactate Dehydrogenase Troponin T C-Reactive Protein Total Protein Albumin Prealbumin Triglycerides Cholesterol LDL Cholesterol Direct HDL Cholesterol PTH Intact Urine pH Urine WBC (Auto) Urine Creatinine Urine Total Protein Fluid Total Protein Vancomycin Trough Rheumatoid Factor Complement C4 Miscellaneous Test Crossmatch 10/13/16 10/13/16 10/13/16 06:22 09:20 12:29 WBC RBC Hgb Hct MCV MCH MCHC RDW Plt Count Lymph % (Auto) [place] % (Auto) Lymph # [place] # Baso # Seg Neutrophils % Seg Neuts % (Manual) Lymphocytes % (Manual) Monocytes % (Manual) Eosinophils % (Manual) Basophils % (Manual) Nucleated RBC % Seg Neutrophils # Seg Neutrophils # Man Lymphocytes # (Manual) Monocytes # (Manual) Eosinophils # (Manual) Basophils # (Manual) PT INR Fibrinogen dRVVT Confirm Interp Factor V Activity POC ABG pH POC ABG pCO2 POC ABG pO2 ABG pO2 ABG HCO3 ABG Base Excess ABG Hemoglobin Oxyhemoglobin Sodium Potassium Chloride Carbon Dioxide BUN Creatinine Glucose POC Glucose 165 H 193 H Lactic Acid Calcium Phosphorus Magnesium Direct Bilirubin AST ALT Alkaline Phosphatase Lactate Dehydrogenase Troponin T C-Reactive Protein Total Protein Albumin Prealbumin Triglycerides Cholesterol LDL Cholesterol Direct HDL Cholesterol PTH Intact Urine pH Urine WBC (Auto) Urine Creatinine Urine Total Protein Fluid Total Protein Vancomycin Trough Rheumatoid Factor Complement C4 Miscellaneous Test Flexitest 1 H Crossmatch 10/13/16 10/13/16 10/13/16 18:09 Unknown Unknown WBC 23.4 H RBC 2.83 L Hgb 8.7 L Hct 26.1 L MCV MCH MCHC RDW 18.1 H Plt Count Lymph % (Auto) [place] % (Auto) Lymph # [place] # Baso # Seg Neutrophils % Seg Neuts % (Manual) Lymphocytes % (Manual) Monocytes % (Manual) Eosinophils % (Manual) Basophils % (Manual) Nucleated RBC % Seg Neutrophils # Seg Neutrophils # Man Lymphocytes # (Manual) Monocytes # (Manual) Eosinophils # (Manual) Basophils # (Manual) PT INR Fibrinogen dRVVT Confirm Interp Factor V Activity POC ABG pH POC ABG pCO2 POC ABG pO2 ABG pO2 ABG HCO3 ABG Base Excess ABG Hemoglobin Oxyhemoglobin Sodium Potassium Chloride 95.8 L Carbon Dioxide BUN 82 H Creatinine 2.6 H Glucose 152 H POC Glucose 166 H Lactic Acid Calcium Phosphorus Magnesium Direct Bilirubin AST ALT Alkaline Phosphatase Lactate Dehydrogenase Troponin T C-Reactive Protein Total Protein Albumin Prealbumin Triglycerides Cholesterol LDL Cholesterol Direct HDL Cholesterol PTH Intact Urine pH Urine WBC (Auto) Urine Creatinine Urine Total Protein Fluid Total Protein Vancomycin Trough Rheumatoid Factor Complement C4 Miscellaneous Test Crossmatch 10/14/16 10/14/16 10/14/16 05:38 06:35 08:10 WBC 20.7 H RBC 2.81 L Hgb 8.4 L Hct 27.2 L MCV MCH MCHC RDW 19.4 H Plt Count Lymph % (Auto) [place] % (Auto) Lymph # [place] # Baso # Seg Neutrophils % Seg Neuts % (Manual) Lymphocytes % (Manual) Monocytes % (Manual) Eosinophils % (Manual) Basophils % (Manual) Nucleated RBC % Seg Neutrophils # Seg Neutrophils # Man Lymphocytes # (Manual) Monocytes # (Manual) Eosinophils # (Manual) Basophils # (Manual) PT INR Fibrinogen dRVVT Confirm Interp Factor V Activity POC ABG pH POC ABG pCO2 POC ABG pO2 ABG pO2 ABG HCO3 ABG Base Excess ABG Hemoglobin Oxyhemoglobin Sodium Potassium Chloride Carbon Dioxide BUN 58 H Creatinine 1.9 H Glucose 169 H POC Glucose 195 H Lactic Acid Calcium Phosphorus Magnesium Direct Bilirubin AST ALT Alkaline Phosphatase Lactate Dehydrogenase Troponin T C-Reactive Protein Total Protein Albumin Prealbumin Triglycerides Cholesterol LDL Cholesterol Direct HDL Cholesterol PTH Intact Urine pH Urine WBC (Auto) Urine Creatinine Urine Total Protein Fluid Total Protein Vancomycin Trough Rheumatoid Factor Complement C4 Miscellaneous Test Crossmatch 10/14/16 10/14/16 10/14/16 11:44 17:13 23:28 WBC RBC Hgb Hct MCV MCH MCHC RDW Plt Count Lymph % (Auto) [place] % (Auto) Lymph # [place] # Baso # Seg Neutrophils % Seg Neuts % (Manual) Lymphocytes % (Manual) Monocytes % (Manual) Eosinophils % (Manual) Basophils % (Manual) Nucleated RBC % Seg Neutrophils # Seg Neutrophils # Man Lymphocytes # (Manual) Monocytes # (Manual) Eosinophils # (Manual) Basophils # (Manual) PT INR Fibrinogen dRVVT Confirm Interp Factor V Activity POC ABG pH POC ABG pCO2 POC ABG pO2 ABG pO2 ABG HCO3 ABG Base Excess ABG Hemoglobin Oxyhemoglobin Sodium Potassium Chloride Carbon Dioxide BUN Creatinine Glucose POC Glucose 174 H 121 H 151 H Lactic Acid Calcium Phosphorus Magnesium Direct Bilirubin AST ALT Alkaline Phosphatase Lactate Dehydrogenase Troponin T C-Reactive Protein Total Protein Albumin Prealbumin Triglycerides Cholesterol LDL Cholesterol Direct HDL Cholesterol PTH Intact Urine pH Urine WBC (Auto) Urine Creatinine Urine Total Protein Fluid Total Protein Vancomycin Trough Rheumatoid Factor Complement C4 Miscellaneous Test Crossmatch 10/15/16 10/15/16 10/15/16 05:06 12:26 17:48 WBC RBC Hgb Hct MCV MCH MCHC RDW Plt Count Lymph % (Auto) [place] % (Auto) Lymph # [place] # Baso # Seg Neutrophils % Seg Neuts % (Manual) Lymphocytes % (Manual) Monocytes % (Manual) Eosinophils % (Manual) Basophils % (Manual) Nucleated RBC % Seg Neutrophils # Seg Neutrophils # Man Lymphocytes # (Manual) Monocytes # (Manual) Eosinophils # (Manual) Basophils # (Manual) PT INR Fibrinogen dRVVT Confirm Interp Factor V Activity POC ABG pH POC ABG pCO2 POC ABG pO2 ABG pO2 ABG HCO3 ABG Base Excess ABG Hemoglobin Oxyhemoglobin Sodium Potassium Chloride Carbon Dioxide BUN Creatinine Glucose POC Glucose 151 H 149 H 153 H Lactic Acid Calcium Phosphorus Magnesium Direct Bilirubin AST ALT Alkaline Phosphatase Lactate Dehydrogenase Troponin T C-Reactive Protein Total Protein Albumin Prealbumin Triglycerides Cholesterol LDL Cholesterol Direct HDL Cholesterol PTH Intact Urine pH Urine WBC (Auto) Urine Creatinine Urine Total Protein Fluid Total Protein Vancomycin Trough Rheumatoid Factor Complement C4 Miscellaneous Test Crossmatch 10/15/16 10/15/16 10/16/16 Unknown Unknown 00:02 WBC 23.4 H RBC 2.78 L Hgb 8.5 L Hct 25.7 L MCV MCH MCHC RDW 18.7 H Plt Count Lymph % (Auto) [place] % (Auto) Lymph # [place] # Baso # Seg Neutrophils % Seg Neuts % (Manual) Lymphocytes % (Manual) Monocytes % (Manual) Eosinophils % (Manual) Basophils % (Manual) Nucleated RBC % Seg Neutrophils # Seg Neutrophils # Man Lymphocytes # (Manual) Monocytes # (Manual) Eosinophils # (Manual) Basophils # (Manual) PT INR Fibrinogen dRVVT Confirm Interp Factor V Activity POC ABG pH POC ABG pCO2 POC ABG pO2 ABG pO2 ABG HCO3 ABG Base Excess ABG Hemoglobin Oxyhemoglobin Sodium Potassium Chloride Carbon Dioxide BUN 73 H Creatinine 2.3 H Glucose 120 H POC Glucose 137 H Lactic Acid Calcium Phosphorus Magnesium Direct Bilirubin AST ALT Alkaline Phosphatase Lactate Dehydrogenase Troponin T C-Reactive Protein Total Protein Albumin Prealbumin Triglycerides Cholesterol LDL Cholesterol Direct HDL Cholesterol PTH Intact Urine pH Urine WBC (Auto) Urine Creatinine Urine Total Protein Fluid Total Protein Vancomycin Trough Rheumatoid Factor Complement C4 Miscellaneous Test Crossmatch 10/16/16 10/16/16 10/16/16 05:44 06:25 06:25 WBC 22.5 H RBC 2.76 L Hgb 8.3 L Hct 25.2 L MCV MCH MCHC RDW 18.3 H Plt Count Lymph % (Auto) [place] % (Auto) Lymph # [place] # Baso # Seg Neutrophils % Seg Neuts % (Manual) Lymphocytes % (Manual) Monocytes % (Manual) Eosinophils % (Manual) Basophils % (Manual) Nucleated RBC % Seg Neutrophils # Seg Neutrophils # Man Lymphocytes # (Manual) Monocytes # (Manual) Eosinophils # (Manual) Basophils # (Manual) PT INR Fibrinogen dRVVT Confirm Interp Factor V Activity POC ABG pH POC ABG pCO2 POC ABG pO2 ABG pO2 ABG HCO3 ABG Base Excess ABG Hemoglobin Oxyhemoglobin Sodium Potassium Chloride Carbon Dioxide BUN 92 H Creatinine 3.0 H Glucose 138 H POC Glucose 110 H Lactic Acid Calcium Phosphorus Magnesium Direct Bilirubin AST ALT Alkaline Phosphatase Lactate Dehydrogenase Troponin T C-Reactive Protein Total Protein Albumin Prealbumin Triglycerides Cholesterol LDL Cholesterol Direct HDL Cholesterol PTH Intact Urine pH Urine WBC (Auto) Urine Creatinine Urine Total Protein Fluid Total Protein Vancomycin Trough Rheumatoid Factor Complement C4 Miscellaneous Test Crossmatch 10/16/16 10/16/16 10/16/16 11:27 11:48 17:36 WBC RBC Hgb Hct MCV MCH MCHC RDW Plt Count Lymph % (Auto) [place] % (Auto) Lymph # [place] # Baso # Seg Neutrophils % Seg Neuts % (Manual) Lymphocytes % (Manual) Monocytes % (Manual) Eosinophils % (Manual) Basophils % (Manual) Nucleated RBC % Seg Neutrophils # Seg Neutrophils # Man Lymphocytes # (Manual) Monocytes # (Manual) Eosinophils # (Manual) Basophils # (Manual) PT INR Fibrinogen dRVVT Confirm Interp Factor V Activity POC ABG pH 7.582 H POC ABG pCO2 27.4 L POC ABG pO2 110 H ABG pO2 ABG HCO3 ABG Base Excess ABG Hemoglobin Oxyhemoglobin Sodium Potassium Chloride Carbon Dioxide BUN Creatinine Glucose POC Glucose 121 H 133 H Lactic Acid Calcium Phosphorus Magnesium Direct Bilirubin AST ALT Alkaline Phosphatase Lactate Dehydrogenase Troponin T C-Reactive Protein Total Protein Albumin Prealbumin Triglycerides Cholesterol LDL Cholesterol Direct HDL Cholesterol PTH Intact Urine pH Urine WBC (Auto) Urine Creatinine Urine Total Protein Fluid Total Protein Vancomycin Trough Rheumatoid Factor Complement C4 Miscellaneous Test Crossmatch 10/16/16 10/17/16 10/17/16 20:48 04:24 04:24 WBC 21.4 H RBC 2.72 L Hgb 8.0 L Hct 25.2 L MCV MCH MCHC RDW 18.0 H Plt Count Lymph % (Auto) [place] % (Auto) Lymph # [place] # Baso # Seg Neutrophils % Seg Neuts % (Manual) Lymphocytes % (Manual) Monocytes % (Manual) Eosinophils % (Manual) Basophils % (Manual) Nucleated RBC % Seg Neutrophils # Seg Neutrophils # Man Lymphocytes # (Manual) Monocytes # (Manual) Eosinophils # (Manual) Basophils # (Manual) PT INR Fibrinogen dRVVT Confirm Interp Factor V Activity POC ABG pH 7.561 H POC ABG pCO2 24.4 L POC ABG pO2 77 L ABG pO2 ABG HCO3 ABG Base Excess ABG Hemoglobin Oxyhemoglobin Sodium 148 H Potassium Chloride Carbon Dioxide BUN 104 H Creatinine 3.0 H Glucose 149 H POC Glucose Lactic Acid Calcium Phosphorus Magnesium Direct Bilirubin AST ALT Alkaline Phosphatase 138 H Lactate Dehydrogenase Troponin T C-Reactive Protein Total Protein 6.2 L Albumin 1.5 L Prealbumin Triglycerides Cholesterol LDL Cholesterol Direct HDL Cholesterol PTH Intact Urine pH Urine WBC (Auto) Urine Creatinine Urine Total Protein Fluid Total Protein Vancomycin Trough Rheumatoid Factor Complement C4 Miscellaneous Test Crossmatch 10/17/16 10/17/16 10/17/16 06:02 12:17 17:14 WBC RBC Hgb Hct MCV MCH MCHC RDW Plt Count Lymph % (Auto) [place] % (Auto) Lymph # [place] # Baso # Seg Neutrophils % Seg Neuts % (Manual) Lymphocytes % (Manual) Monocytes % (Manual) Eosinophils % (Manual) Basophils % (Manual) Nucleated RBC % Seg Neutrophils # Seg Neutrophils # Man Lymphocytes # (Manual) Monocytes # (Manual) Eosinophils # (Manual) Basophils # (Manual) PT INR Fibrinogen dRVVT Confirm Interp Factor V Activity POC ABG pH POC ABG pCO2 POC ABG pO2 ABG pO2 ABG HCO3 ABG Base Excess ABG Hemoglobin Oxyhemoglobin Sodium Potassium Chloride Carbon Dioxide BUN Creatinine Glucose POC Glucose 170 H 167 H 126 H Lactic Acid Calcium Phosphorus Magnesium Direct Bilirubin AST ALT Alkaline Phosphatase Lactate Dehydrogenase Troponin T C-Reactive Protein Total Protein Albumin Prealbumin Triglycerides Cholesterol LDL Cholesterol Direct HDL Cholesterol PTH Intact Urine pH Urine WBC (Auto) Urine Creatinine Urine Total Protein Fluid Total Protein Vancomycin Trough Rheumatoid Factor Complement C4 Miscellaneous Test Crossmatch 10/17/16 10/18/16 10/18/16 23:17 04:00 04:00 WBC 20.7 H RBC 2.47 L Hgb 7.4 L Hct 22.9 L MCV MCH MCHC RDW 17.5 H Plt Count Lymph % (Auto) [place] % (Auto) Lymph # [place] # Baso # Seg Neutrophils % Seg Neuts % (Manual) Lymphocytes % (Manual) Monocytes % (Manual) Eosinophils % (Manual) Basophils % (Manual) Nucleated RBC % Seg Neutrophils # Seg Neutrophils # Man Lymphocytes # (Manual) Monocytes # (Manual) Eosinophils # (Manual) Basophils # (Manual) PT INR Fibrinogen dRVVT Confirm Interp Factor V Activity POC ABG pH POC ABG pCO2 POC ABG pO2 ABG pO2 ABG HCO3 ABG Base Excess ABG Hemoglobin Oxyhemoglobin Sodium 149 H Potassium Chloride 107.9 H Carbon Dioxide 20 L BUN 117 H Creatinine 3.2 H Glucose 119 H POC Glucose 121 H Lactic Acid Calcium Phosphorus Magnesium Direct Bilirubin AST ALT Alkaline Phosphatase Lactate Dehydrogenase Troponin T C-Reactive Protein Total Protein Albumin Prealbumin Triglycerides Cholesterol LDL Cholesterol Direct HDL Cholesterol PTH Intact Urine pH Urine WBC (Auto) Urine Creatinine Urine Total Protein Fluid Total Protein Vancomycin Trough Rheumatoid Factor Complement C4 Miscellaneous Test Crossmatch 10/18/16 10/18/16 10/18/16 05:23 10:46 17:30 WBC RBC Hgb Hct MCV MCH MCHC RDW Plt Count Lymph % (Auto) [place] % (Auto) Lymph # [place] # Baso # Seg Neutrophils % Seg Neuts % (Manual) Lymphocytes % (Manual) Monocytes % (Manual) Eosinophils % (Manual) Basophils % (Manual) Nucleated RBC % Seg Neutrophils # Seg Neutrophils # Man Lymphocytes # (Manual) Monocytes # (Manual) Eosinophils # (Manual) Basophils # (Manual) PT INR Fibrinogen dRVVT Confirm Interp Factor V Activity POC ABG pH POC ABG pCO2 POC ABG pO2 ABG pO2 ABG HCO3 ABG Base Excess ABG Hemoglobin Oxyhemoglobin Sodium Potassium Chloride Carbon Dioxide BUN Creatinine Glucose POC Glucose 119 H 155 H 124 H Lactic Acid Calcium Phosphorus Magnesium Direct Bilirubin AST ALT Alkaline Phosphatase Lactate Dehydrogenase Troponin T C-Reactive Protein Total Protein Albumin Prealbumin Triglycerides Cholesterol LDL Cholesterol Direct HDL Cholesterol PTH Intact Urine pH Urine WBC (Auto) Urine Creatinine Urine Total Protein Fluid Total Protein Vancomycin Trough Rheumatoid Factor Complement C4 Miscellaneous Test Crossmatch 10/19/16 10/19/16 10/19/16 04:00 04:00 05:25 WBC 17.4 H RBC 2.54 L Hgb 7.7 L Hct 23.6 L MCV MCH MCHC RDW 17.3 H Plt Count Lymph % (Auto) [place] % (Auto) Lymph # [place] # Baso # Seg Neutrophils % Seg Neuts % (Manual) Lymphocytes % (Manual) Monocytes % (Manual) Eosinophils % (Manual) Basophils % (Manual) Nucleated RBC % Seg Neutrophils # Seg Neutrophils # Man Lymphocytes # (Manual) Monocytes # (Manual) Eosinophils # (Manual) Basophils # (Manual) PT INR Fibrinogen dRVVT Confirm Interp Factor V Activity POC ABG pH POC ABG pCO2 POC ABG pO2 ABG pO2 ABG HCO3 ABG Base Excess ABG Hemoglobin Oxyhemoglobin Sodium Potassium Chloride Carbon Dioxide BUN 72 H Creatinine 2.1 H Glucose 116 H POC Glucose 119 H Lactic Acid Calcium Phosphorus Magnesium Direct Bilirubin AST ALT Alkaline Phosphatase Lactate Dehydrogenase Troponin T C-Reactive Protein Total Protein Albumin Prealbumin Triglycerides Cholesterol LDL Cholesterol Direct HDL Cholesterol PTH Intact Urine pH Urine WBC (Auto) Urine Creatinine Urine Total Protein Fluid Total Protein Vancomycin Trough Rheumatoid Factor Complement C4 Miscellaneous Test Crossmatch 10/19/16 10/19/16 10/20/16 11:46 23:59 06:00 WBC RBC Hgb Hct MCV MCH MCHC RDW Plt Count Lymph % (Auto) [place] % (Auto) Lymph # [place] # Baso # Seg Neutrophils % Seg Neuts % (Manual) Lymphocytes % (Manual) Monocytes % (Manual) Eosinophils % (Manual) Basophils % (Manual) Nucleated RBC % Seg Neutrophils # Seg Neutrophils # Man Lymphocytes # (Manual) Monocytes # (Manual) Eosinophils # (Manual) Basophils # (Manual) PT INR Fibrinogen dRVVT Confirm Interp Factor V Activity POC ABG pH POC ABG pCO2 POC ABG pO2 ABG pO2 ABG HCO3 ABG Base Excess ABG Hemoglobin Oxyhemoglobin Sodium Potassium Chloride Carbon Dioxide 17 L BUN 94 H Creatinine 2.7 H Glucose POC Glucose 116 H 117 H Lactic Acid Calcium Phosphorus Magnesium Direct Bilirubin AST ALT Alkaline Phosphatase Lactate Dehydrogenase Troponin T C-Reactive Protein Total Protein Albumin Prealbumin Triglycerides Cholesterol LDL Cholesterol Direct HDL Cholesterol PTH Intact Urine pH Urine WBC (Auto) Urine Creatinine Urine Total Protein Fluid Total Protein Vancomycin Trough Rheumatoid Factor Complement C4 Miscellaneous Test Crossmatch 10/20/16 10/20/16 10/20/16 06:00 11:49 16:00 WBC 19.7 H RBC 2.51 L Hgb 7.7 L Hct 23.5 L MCV MCH MCHC RDW 17.5 H Plt Count Lymph % (Auto) [place] % (Auto) Lymph # [place] # Baso # Seg Neutrophils % Seg Neuts % (Manual) Lymphocytes % (Manual) Monocytes % (Manual) Eosinophils % (Manual) Basophils % (Manual) Nucleated RBC % Seg Neutrophils # Seg Neutrophils # Man Lymphocytes # (Manual) Monocytes # (Manual) Eosinophils # (Manual) Basophils # (Manual) PT INR Fibrinogen dRVVT Confirm Interp Factor V Activity POC ABG pH POC ABG pCO2 POC ABG pO2 ABG pO2 ABG HCO3 ABG Base Excess ABG Hemoglobin Oxyhemoglobin Sodium Potassium Chloride Carbon Dioxide BUN Creatinine Glucose POC Glucose 117 H Lactic Acid Calcium Phosphorus Magnesium Direct Bilirubin AST ALT Alkaline Phosphatase Lactate Dehydrogenase Troponin T C-Reactive Protein Total Protein Albumin Prealbumin Triglycerides Cholesterol LDL Cholesterol Direct HDL Cholesterol PTH Intact Urine pH Urine WBC (Auto) Urine Creatinine Urine Total Protein Fluid Total Protein Vancomycin Trough Rheumatoid Factor Complement C4 Miscellaneous Test Flexitest 1 H Crossmatch 10/20/16 10/20/16 10/21/16 18:36 23:39 04:00 WBC RBC Hgb Hct MCV MCH MCHC RDW Plt Count Lymph % (Auto) [place] % (Auto) Lymph # [place] # Baso # Seg Neutrophils % Seg Neuts % (Manual) Lymphocytes % (Manual) Monocytes % (Manual) Eosinophils % (Manual) Basophils % (Manual) Nucleated RBC % Seg Neutrophils # Seg Neutrophils # Man Lymphocytes # (Manual) Monocytes # (Manual) Eosinophils # (Manual) Basophils # (Manual) PT INR Fibrinogen dRVVT Confirm Interp Factor V Activity POC ABG pH POC ABG pCO2 POC ABG pO2 ABG pO2 ABG HCO3 ABG Base Excess ABG Hemoglobin Oxyhemoglobin Sodium Potassium 5.4 H D Chloride Carbon Dioxide 15 L BUN 110 H Creatinine 3.0 H Glucose POC Glucose 127 H 114 H Lactic Acid Calcium Phosphorus Magnesium Direct Bilirubin AST ALT Alkaline Phosphatase Lactate Dehydrogenase Troponin T C-Reactive Protein Total Protein Albumin Prealbumin Triglycerides Cholesterol LDL Cholesterol Direct HDL Cholesterol PTH Intact Urine pH Urine WBC (Auto) Urine Creatinine Urine Total Protein Fluid Total Protein Vancomycin Trough Rheumatoid Factor Complement C4 Miscellaneous Test Crossmatch 10/21/16 10/21/16 10/22/16 05:54 23:46 05:18 WBC RBC Hgb Hct MCV MCH MCHC RDW Plt Count Lymph % (Auto) [place] % (Auto) Lymph # [place] # Baso # Seg Neutrophils % Seg Neuts % (Manual) Lymphocytes % (Manual) Monocytes % (Manual) Eosinophils % (Manual) Basophils % (Manual) Nucleated RBC % Seg Neutrophils # Seg Neutrophils # Man Lymphocytes # (Manual) Monocytes # (Manual) Eosinophils # (Manual) Basophils # (Manual) PT INR Fibrinogen dRVVT Confirm Interp Factor V Activity POC ABG pH POC ABG pCO2 POC ABG pO2 ABG pO2 ABG HCO3 ABG Base Excess ABG Hemoglobin Oxyhemoglobin Sodium Potassium Chloride Carbon Dioxide BUN Creatinine Glucose POC Glucose 119 H 108 H 109 H Lactic Acid Calcium Phosphorus Magnesium Direct Bilirubin AST ALT Alkaline Phosphatase Lactate Dehydrogenase Troponin T C-Reactive Protein Total Protein Albumin Prealbumin Triglycerides Cholesterol LDL Cholesterol Direct HDL Cholesterol PTH Intact Urine pH Urine WBC (Auto) Urine Creatinine Urine Total Protein Fluid Total Protein Vancomycin Trough Rheumatoid Factor Complement C4 Miscellaneous Test Crossmatch 10/22/16 10/22/16 10/22/16 06:40 06:40 06:40 WBC 14.0 H RBC 2.03 L Hgb 7.0 L Hct 20.5 L MCV 98 H MCH 34 H MCHC 35 H RDW 17.8 H Plt Count Lymph % (Auto) [place] % (Auto) 9.9 H Lymph # [place] # 1.4 H Baso # 0.2 H Seg Neutrophils % 72.0 H Seg Neuts % (Manual) Lymphocytes % (Manual) Monocytes % (Manual) Eosinophils % (Manual) Basophils % (Manual) Nucleated RBC % Seg Neutrophils # 10.0 H Seg Neutrophils # Man Lymphocytes # (Manual) Monocytes # (Manual) Eosinophils # (Manual) Basophils # (Manual) PT INR Fibrinogen dRVVT Confirm Interp Factor V Activity POC ABG pH POC ABG pCO2 POC ABG pO2 ABG pO2 ABG HCO3 ABG Base Excess ABG Hemoglobin Oxyhemoglobin Sodium 130 L D Potassium Chloride 92.4 L Carbon Dioxide 20 L BUN 50 H Creatinine 1.6 H Glucose 589 H* POC Glucose Lactic Acid Calcium 7.8 L D Phosphorus Magnesium 1.60 L Direct Bilirubin AST ALT Alkaline Phosphatase Lactate Dehydrogenase Troponin T C-Reactive Protein Total Protein Albumin Prealbumin Triglycerides Cholesterol LDL Cholesterol Direct HDL Cholesterol PTH Intact Urine pH Urine WBC (Auto) Urine Creatinine Urine Total Protein Fluid Total Protein Vancomycin Trough Rheumatoid Factor Complement C4 Miscellaneous Test Crossmatch 10/22/16 10/22/16 10/22/16 11:39 16:44 23:36 WBC RBC Hgb Hct MCV MCH MCHC RDW Plt Count Lymph % (Auto) [place] % (Auto) Lymph # [place] # Baso # Seg Neutrophils % Seg Neuts % (Manual) Lymphocytes % (Manual) Monocytes % (Manual) Eosinophils % (Manual) Basophils % (Manual) Nucleated RBC % Seg Neutrophils # Seg Neutrophils # Man Lymphocytes # (Manual) Monocytes # (Manual) Eosinophils # (Manual) Basophils # (Manual) PT INR Fibrinogen dRVVT Confirm Interp Factor V Activity POC ABG pH POC ABG pCO2 POC ABG pO2 ABG pO2 ABG HCO3 ABG Base Excess ABG Hemoglobin Oxyhemoglobin Sodium Potassium Chloride Carbon Dioxide BUN Creatinine Glucose POC Glucose 142 H 163 H 123 H Lactic Acid Calcium Phosphorus Magnesium Direct Bilirubin AST ALT Alkaline Phosphatase Lactate Dehydrogenase Troponin T C-Reactive Protein Total Protein Albumin Prealbumin Triglycerides Cholesterol LDL Cholesterol Direct HDL Cholesterol PTH Intact Urine pH Urine WBC (Auto) Urine Creatinine Urine Total Protein Fluid Total Protein Vancomycin Trough Rheumatoid Factor Complement C4 Miscellaneous Test Crossmatch 10/23/16 10/23/16 10/23/16 04:58 06:00 12:12 WBC RBC Hgb Hct MCV MCH MCHC RDW Plt Count Lymph % (Auto) [place] % (Auto) Lymph # [place] # Baso # Seg Neutrophils % Seg Neuts % (Manual) Lymphocytes % (Manual) Monocytes % (Manual) Eosinophils % (Manual) Basophils % (Manual) Nucleated RBC % Seg Neutrophils # Seg Neutrophils # Man Lymphocytes # (Manual) Monocytes # (Manual) Eosinophils # (Manual) Basophils # (Manual) PT INR Fibrinogen dRVVT Confirm Interp Factor V Activity POC ABG pH POC ABG pCO2 POC ABG pO2 ABG pO2 ABG HCO3 ABG Base Excess ABG Hemoglobin Oxyhemoglobin Sodium 133 L Potassium 3.5 L Chloride 96.1 L Carbon Dioxide 18 L BUN 76 H Creatinine 2.1 H Glucose POC Glucose 133 H 138 H Lactic Acid Calcium 8.3 L Phosphorus Magnesium Direct Bilirubin AST ALT Alkaline Phosphatase Lactate Dehydrogenase Troponin T C-Reactive Protein Total Protein Albumin Prealbumin Triglycerides Cholesterol LDL Cholesterol Direct HDL Cholesterol PTH Intact Urine pH Urine WBC (Auto) Urine Creatinine Urine Total Protein Fluid Total Protein Vancomycin Trough Rheumatoid Factor Complement C4 Miscellaneous Test Crossmatch 10/23/16 10/23/16 10/24/16 16:53 23:37 04:00 WBC RBC Hgb Hct MCV MCH MCHC RDW Plt Count Lymph % (Auto) [place] % (Auto) Lymph # [place] # Baso # Seg Neutrophils % Seg Neuts % (Manual) Lymphocytes % (Manual) Monocytes % (Manual) Eosinophils % (Manual) Basophils % (Manual) Nucleated RBC % Seg Neutrophils # Seg Neutrophils # Man Lymphocytes # (Manual) Monocytes # (Manual) Eosinophils # (Manual) Basophils # (Manual) PT INR Fibrinogen dRVVT Confirm Interp Factor V Activity POC ABG pH POC ABG pCO2 POC ABG pO2 ABG pO2 ABG HCO3 ABG Base Excess ABG Hemoglobin Oxyhemoglobin Sodium 131 L Potassium Chloride 94.5 L Carbon Dioxide 19 L BUN 97 H Creatinine 2.6 H Glucose 110 H POC Glucose 125 H 123 H Lactic Acid Calcium 8.3 L Phosphorus Magnesium Direct Bilirubin AST ALT Alkaline Phosphatase Lactate Dehydrogenase Troponin T C-Reactive Protein Total Protein Albumin Prealbumin Triglycerides Cholesterol LDL Cholesterol Direct HDL Cholesterol PTH Intact Urine pH Urine WBC (Auto) Urine Creatinine Urine Total Protein Fluid Total Protein Vancomycin Trough Rheumatoid Factor Complement C4 Miscellaneous Test Crossmatch 10/24/16 10/24/16 10/24/16 07:49 11:39 17:52 WBC RBC Hgb 6.0 L Hct 19.7 L* MCV MCH MCHC RDW Plt Count Lymph % (Auto) [place] % (Auto) Lymph # [place] # Baso # Seg Neutrophils % Seg Neuts % (Manual) Lymphocytes % (Manual) Monocytes % (Manual) Eosinophils % (Manual) Basophils % (Manual) Nucleated RBC % Seg Neutrophils # Seg Neutrophils # Man Lymphocytes # (Manual) Monocytes # (Manual) Eosinophils # (Manual) Basophils # (Manual) PT INR Fibrinogen dRVVT Confirm Interp Factor V Activity POC ABG pH POC ABG pCO2 POC ABG pO2 ABG pO2 ABG HCO3 ABG Base Excess ABG Hemoglobin Oxyhemoglobin Sodium Potassium Chloride Carbon Dioxide BUN Creatinine Glucose POC Glucose 106 H 158 H Lactic Acid Calcium Phosphorus Magnesium Direct Bilirubin AST ALT Alkaline Phosphatase Lactate Dehydrogenase Troponin T C-Reactive Protein Total Protein Albumin Prealbumin Triglycerides Cholesterol LDL Cholesterol Direct HDL Cholesterol PTH Intact Urine pH Urine WBC (Auto) Urine Creatinine Urine Total Protein Fluid Total Protein Vancomycin Trough Rheumatoid Factor Complement C4 Miscellaneous Test Crossmatch 10/24/16 10/24/16 10/24/16 20:00 22:27 Unknown WBC RBC Hgb 9.4 L D Hct 27.5 L D MCV MCH MCHC RDW Plt Count Lymph % (Auto) [place] % (Auto) Lymph # [place] # Baso # Seg Neutrophils % Seg Neuts % (Manual) Lymphocytes % (Manual) Monocytes % (Manual) Eosinophils % (Manual) Basophils % (Manual) Nucleated RBC % Seg Neutrophils # Seg Neutrophils # Man Lymphocytes # (Manual) Monocytes # (Manual) Eosinophils # (Manual) Basophils # (Manual) PT INR Fibrinogen dRVVT Confirm Interp Factor V Activity POC ABG pH POC ABG pCO2 POC ABG pO2 ABG pO2 ABG HCO3 ABG Base Excess ABG Hemoglobin Oxyhemoglobin Sodium Potassium Chloride Carbon Dioxide BUN Creatinine Glucose POC Glucose 125 H Lactic Acid Calcium Phosphorus Magnesium Direct Bilirubin AST ALT Alkaline Phosphatase Lactate Dehydrogenase Troponin T C-Reactive Protein Total Protein Albumin Prealbumin Triglycerides Cholesterol LDL Cholesterol Direct HDL Cholesterol PTH Intact Urine pH Urine WBC (Auto) Urine Creatinine Urine Total Protein Fluid Total Protein Vancomycin Trough Rheumatoid Factor Complement C4 Miscellaneous Test Crossmatch See Detail 10/25/16 10/25/16 10/25/16 04:00 04:00 04:00 WBC 14.2 H RBC 2.98 L Hgb 9.0 L Hct 26.2 L MCV MCH MCHC RDW 16.6 H Plt Count Lymph % (Auto) [place] % (Auto) 10.7 H Lymph # [place] # 1.5 H Baso # Seg Neutrophils % 73.6 H Seg Neuts % (Manual) Lymphocytes % (Manual) Monocytes % (Manual) Eosinophils % (Manual) Basophils % (Manual) Nucleated RBC % Seg Neutrophils # 10.5 H Seg Neutrophils # Man Lymphocytes # (Manual) Monocytes # (Manual) Eosinophils # (Manual) Basophils # (Manual) PT INR Fibrinogen dRVVT Confirm Interp Factor V Activity POC ABG pH POC ABG pCO2 POC ABG pO2 ABG pO2 ABG HCO3 ABG Base Excess ABG Hemoglobin Oxyhemoglobin Sodium 132 L Potassium Chloride 94.7 L Carbon Dioxide BUN 51 H Creatinine 1.6 H Glucose 130 H POC Glucose Lactic Acid Calcium 8.3 L Phosphorus 1.60 L D Magnesium Direct Bilirubin AST ALT Alkaline Phosphatase Lactate Dehydrogenase Troponin T C-Reactive Protein Total Protein Albumin Prealbumin Triglycerides Cholesterol LDL Cholesterol Direct HDL Cholesterol PTH Intact Urine pH Urine WBC (Auto) Urine Creatinine Urine Total Protein Fluid Total Protein Vancomycin Trough Rheumatoid Factor Complement C4 Miscellaneous Test Crossmatch 10/25/16 10/25/16 10/25/16 04:32 11:48 17:22 WBC RBC Hgb Hct MCV MCH MCHC RDW Plt Count Lymph % (Auto) [place] % (Auto) Lymph # [place] # Baso # Seg Neutrophils % Seg Neuts % (Manual) Lymphocytes % (Manual) Monocytes % (Manual) Eosinophils % (Manual) Basophils % (Manual) Nucleated RBC % Seg Neutrophils # Seg Neutrophils # Man Lymphocytes # (Manual) Monocytes # (Manual) Eosinophils # (Manual) Basophils # (Manual) PT INR Fibrinogen dRVVT Confirm Interp Factor V Activity POC ABG pH POC ABG pCO2 POC ABG pO2 ABG pO2 ABG HCO3 ABG Base Excess ABG Hemoglobin Oxyhemoglobin Sodium Potassium Chloride Carbon Dioxide BUN Creatinine Glucose POC Glucose 124 H 171 H 120 H Lactic Acid Calcium Phosphorus Magnesium Direct Bilirubin AST ALT Alkaline Phosphatase Lactate Dehydrogenase Troponin T C-Reactive Protein Total Protein Albumin Prealbumin Triglycerides Cholesterol LDL Cholesterol Direct HDL Cholesterol PTH Intact Urine pH Urine WBC (Auto) Urine Creatinine Urine Total Protein Fluid Total Protein Vancomycin Trough Rheumatoid Factor Complement C4 Miscellaneous Test Crossmatch 10/26/16 10/26/16 10/26/16 04:54 07:06 07:06 WBC 16.9 H RBC 3.06 L Hgb 9.1 L Hct 26.9 L MCV MCH MCHC RDW 16.9 H Plt Count Lymph % (Auto) [place] % (Auto) Lymph # [place] # Baso # Seg Neutrophils % Seg Neuts % (Manual) 71.0 H Lymphocytes % (Manual) 5.0 L Monocytes % (Manual) 12.0 H Eosinophils % (Manual) Basophils % (Manual) Nucleated RBC % Seg Neutrophils # Seg Neutrophils # Man 12.0 H Lymphocytes # (Manual) 0.8 L Monocytes # (Manual) 2.0 H Eosinophils # (Manual) Basophils # (Manual) PT INR Fibrinogen dRVVT Confirm Interp Factor V Activity POC ABG pH POC ABG pCO2 POC ABG pO2 ABG pO2 ABG HCO3 ABG Base Excess ABG Hemoglobin Oxyhemoglobin Sodium 135 L Potassium Chloride 97.1 L Carbon Dioxide BUN 73 H Creatinine 2.2 H Glucose 117 H POC Glucose 123 H Lactic Acid Calcium Phosphorus 1.70 L Magnesium Direct Bilirubin AST ALT Alkaline Phosphatase Lactate Dehydrogenase Troponin T C-Reactive Protein Total Protein Albumin Prealbumin Triglycerides Cholesterol LDL Cholesterol Direct HDL Cholesterol PTH Intact Urine pH Urine WBC (Auto) Urine Creatinine Urine Total Protein Fluid Total Protein Vancomycin Trough Rheumatoid Factor Complement C4 Miscellaneous Test Crossmatch 10/26/16 10/26/16 10/26/16 12:12 17:29 23:42 WBC RBC Hgb Hct MCV MCH MCHC RDW Plt Count Lymph % (Auto) [place] % (Auto) Lymph # [place] # Baso # Seg Neutrophils % Seg Neuts % (Manual) Lymphocytes % (Manual) Monocytes % (Manual) Eosinophils % (Manual) Basophils % (Manual) Nucleated RBC % Seg Neutrophils # Seg Neutrophils # Man Lymphocytes # (Manual) Monocytes # (Manual) Eosinophils # (Manual) Basophils # (Manual) PT INR Fibrinogen dRVVT Confirm Interp Factor V Activity POC ABG pH POC ABG pCO2 POC ABG pO2 ABG pO2 ABG HCO3 ABG Base Excess ABG Hemoglobin Oxyhemoglobin Sodium Potassium Chloride Carbon Dioxide BUN Creatinine Glucose POC Glucose 126 H 161 H 118 H Lactic Acid Calcium Phosphorus Magnesium Direct Bilirubin AST ALT Alkaline Phosphatase Lactate Dehydrogenase Troponin T C-Reactive Protein Total Protein Albumin Prealbumin Triglycerides Cholesterol LDL Cholesterol Direct HDL Cholesterol PTH Intact Urine pH Urine WBC (Auto) Urine Creatinine Urine Total Protein Fluid Total Protein Vancomycin Trough Rheumatoid Factor Complement C4 Miscellaneous Test Crossmatch 10/27/16 10/27/16 10/27/16 05:03 06:30 06:30 WBC 13.9 H RBC 3.09 L Hgb 9.2 L Hct 27.5 L MCV MCH MCHC RDW 17.0 H Plt Count Lymph % (Auto) [place] % (Auto) Lymph # [place] # Baso # Seg Neutrophils % Seg Neuts % (Manual) 78.0 H Lymphocytes % (Manual) Monocytes % (Manual) Eosinophils % (Manual) Basophils % (Manual) Nucleated RBC % 2.0 H Seg Neutrophils # Seg Neutrophils # Man 10.8 H Lymphocytes # (Manual) Monocytes # (Manual) 1.0 H Eosinophils # (Manual) Basophils # (Manual) PT INR Fibrinogen dRVVT Confirm Interp Factor V Activity POC ABG pH POC ABG pCO2 POC ABG pO2 ABG pO2 ABG HCO3 ABG Base Excess ABG Hemoglobin Oxyhemoglobin Sodium Potassium Chloride Carbon Dioxide BUN 40 H Creatinine 1.5 H Glucose 135 H POC Glucose 107 H Lactic Acid Calcium 8.3 L Phosphorus 1.30 L D Magnesium Direct Bilirubin AST ALT Alkaline Phosphatase Lactate Dehydrogenase Troponin T C-Reactive Protein Total Protein Albumin Prealbumin Triglycerides Cholesterol LDL Cholesterol Direct HDL Cholesterol PTH Intact Urine pH Urine WBC (Auto) Urine Creatinine Urine Total Protein Fluid Total Protein Vancomycin Trough Rheumatoid Factor Complement C4 Miscellaneous Test Crossmatch 10/27/16 10/27/16 10/27/16 13:27 18:07 23:40 WBC RBC Hgb Hct MCV MCH MCHC RDW Plt Count Lymph % (Auto) [place] % (Auto) Lymph # [place] # Baso # Seg Neutrophils % Seg Neuts % (Manual) Lymphocytes % (Manual) Monocytes % (Manual) Eosinophils % (Manual) Basophils % (Manual) Nucleated RBC % Seg Neutrophils # Seg Neutrophils # Man Lymphocytes # (Manual) Monocytes # (Manual) Eosinophils # (Manual) Basophils # (Manual) PT INR Fibrinogen dRVVT Confirm Interp Factor V Activity POC ABG pH POC ABG pCO2 POC ABG pO2 ABG pO2 ABG HCO3 ABG Base Excess ABG Hemoglobin Oxyhemoglobin Sodium Potassium Chloride Carbon Dioxide BUN Creatinine Glucose POC Glucose 117 H 121 H 118 H Lactic Acid Calcium Phosphorus Magnesium Direct Bilirubin AST ALT Alkaline Phosphatase Lactate Dehydrogenase Troponin T C-Reactive Protein Total Protein Albumin Prealbumin Triglycerides Cholesterol LDL Cholesterol Direct HDL Cholesterol PTH Intact Urine pH Urine WBC (Auto) Urine Creatinine Urine Total Protein Fluid Total Protein Vancomycin Trough Rheumatoid Factor Complement C4 Miscellaneous Test Crossmatch 10/28/16 10/28/16 10/28/16 05:48 06:45 06:45 WBC 14.7 H RBC 3.05 L Hgb 9.0 L Hct 26.9 L MCV MCH MCHC RDW 16.8 H Plt Count Lymph % (Auto) 8.2 L [place] % (Auto) 8.4 H Lymph # [place] # 1.2 H Baso # Seg Neutrophils % 81.9 H Seg Neuts % (Manual) Lymphocytes % (Manual) Monocytes % (Manual) Eosinophils % (Manual) Basophils % (Manual) Nucleated RBC % Seg Neutrophils # 12.1 H Seg Neutrophils # Man Lymphocytes # (Manual) Monocytes # (Manual) Eosinophils # (Manual) Basophils # (Manual) PT INR Fibrinogen dRVVT Confirm Interp Factor V Activity POC ABG pH POC ABG pCO2 POC ABG pO2 ABG pO2 ABG HCO3 ABG Base Excess ABG Hemoglobin Oxyhemoglobin Sodium Potassium Chloride Carbon Dioxide BUN 60 H Creatinine 1.9 H Glucose 120 H POC Glucose 114 H Lactic Acid Calcium Phosphorus Magnesium Direct Bilirubin AST ALT Alkaline Phosphatase Lactate Dehydrogenase Troponin T C-Reactive Protein Total Protein Albumin Prealbumin Triglycerides Cholesterol LDL Cholesterol Direct HDL Cholesterol PTH Intact Urine pH Urine WBC (Auto) Urine Creatinine Urine Total Protein Fluid Total Protein Vancomycin Trough Rheumatoid Factor Complement C4 Miscellaneous Test Crossmatch 10/28/16 10/28/16 10/29/16 17:08 23:50 05:10 WBC RBC Hgb Hct MCV MCH MCHC RDW Plt Count Lymph % (Auto) [place] % (Auto) Lymph # [place] # Baso # Seg Neutrophils % Seg Neuts % (Manual) Lymphocytes % (Manual) Monocytes % (Manual) Eosinophils % (Manual) Basophils % (Manual) Nucleated RBC % Seg Neutrophils # Seg Neutrophils # Man Lymphocytes # (Manual) Monocytes # (Manual) Eosinophils # (Manual) Basophils # (Manual) PT INR Fibrinogen dRVVT Confirm Interp Factor V Activity POC ABG pH POC ABG pCO2 POC ABG pO2 ABG pO2 ABG HCO3 ABG Base Excess ABG Hemoglobin Oxyhemoglobin Sodium Potassium Chloride Carbon Dioxide BUN Creatinine Glucose POC Glucose 109 H 110 H 124 H Lactic Acid Calcium Phosphorus Magnesium Direct Bilirubin AST ALT Alkaline Phosphatase Lactate Dehydrogenase Troponin T C-Reactive Protein Total Protein Albumin Prealbumin Triglycerides Cholesterol LDL Cholesterol Direct HDL Cholesterol PTH Intact Urine pH Urine WBC (Auto) Urine Creatinine Urine Total Protein Fluid Total Protein Vancomycin Trough Rheumatoid Factor Complement C4 Miscellaneous Test Crossmatch 10/29/16 10/29/16 10/29/16 07:45 07:45 12:19 WBC 14.7 H RBC 3.15 L Hgb 9.3 L Hct 28.9 L MCV MCH MCHC RDW 17.0 H Plt Count Lymph % (Auto) 11.9 L [place] % (Auto) 8.6 H Lymph # [place] # 1.3 H Baso # Seg Neutrophils % 78.1 H Seg Neuts % (Manual) Lymphocytes % (Manual) Monocytes % (Manual) Eosinophils % (Manual) Basophils % (Manual) Nucleated RBC % Seg Neutrophils # 11.4 H Seg Neutrophils # Man Lymphocytes # (Manual) Monocytes # (Manual) Eosinophils # (Manual) Basophils # (Manual) PT INR Fibrinogen dRVVT Confirm Interp Factor V Activity POC ABG pH POC ABG pCO2 POC ABG pO2 ABG pO2 ABG HCO3 ABG Base Excess ABG Hemoglobin Oxyhemoglobin Sodium Potassium 5.1 H Chloride Carbon Dioxide 19 L BUN 78 H Creatinine 2.2 H Glucose 116 H POC Glucose 118 H Lactic Acid Calcium Phosphorus Magnesium Direct Bilirubin AST ALT Alkaline Phosphatase Lactate Dehydrogenase Troponin T C-Reactive Protein Total Protein Albumin Prealbumin Triglycerides Cholesterol LDL Cholesterol Direct HDL Cholesterol PTH Intact Urine pH Urine WBC (Auto) Urine Creatinine Urine Total Protein Fluid Total Protein Vancomycin Trough Rheumatoid Factor Complement C4 Miscellaneous Test Crossmatch 10/29/16 10/30/16 10/30/16 17:49 01:52 03:28 WBC RBC Hgb Hct MCV MCH MCHC RDW Plt Count Lymph % (Auto) [place] % (Auto) Lymph # [place] # Baso # Seg Neutrophils % Seg Neuts % (Manual) Lymphocytes % (Manual) Monocytes % (Manual) Eosinophils % (Manual) Basophils % (Manual) Nucleated RBC % Seg Neutrophils # Seg Neutrophils # Man Lymphocytes # (Manual) Monocytes # (Manual) Eosinophils # (Manual) Basophils # (Manual) PT INR Fibrinogen dRVVT Confirm Interp Factor V Activity POC ABG pH POC ABG pCO2 POC ABG pO2 ABG pO2 ABG HCO3 ABG Base Excess ABG Hemoglobin Oxyhemoglobin Sodium Potassium 5.4 H Chloride 97.5 L Carbon Dioxide 19 L BUN 90 H Creatinine 2.5 H Glucose POC Glucose 120 H 129 H Lactic Acid Calcium Phosphorus 5.20 H Magnesium Direct Bilirubin AST ALT Alkaline Phosphatase Lactate Dehydrogenase Troponin T C-Reactive Protein Total Protein Albumin Prealbumin Triglycerides Cholesterol LDL Cholesterol Direct HDL Cholesterol PTH Intact Urine pH Urine WBC (Auto) Urine Creatinine Urine Total Protein Fluid Total Protein Vancomycin Trough Rheumatoid Factor Complement C4 Miscellaneous Test Crossmatch 10/30/16 10/30/16 10/30/16 03:28 08:19 08:19 WBC 11.6 H 15.9 H RBC 2.75 L 2.82 L Hgb 7.9 L 8.3 L Hct 24.2 L 25.2 L MCV MCH MCHC RDW 16.7 H 17.2 H Plt Count Lymph % (Auto) [place] % (Auto) 9.8 H Lymph # [place] # 1.1 H Baso # Seg Neutrophils % 74.2 H Seg Neuts % (Manual) Lymphocytes % (Manual) Monocytes % (Manual) Eosinophils % (Manual) Basophils % (Manual) Nucleated RBC % Seg Neutrophils # 8.6 H Seg Neutrophils # Man Lymphocytes # (Manual) Monocytes # (Manual) Eosinophils # (Manual) Basophils # (Manual) PT INR Fibrinogen dRVVT Confirm Interp Factor V Activity POC ABG pH POC ABG pCO2 POC ABG pO2 ABG pO2 ABG HCO3 ABG Base Excess ABG Hemoglobin Oxyhemoglobin Sodium Potassium 5.3 H Chloride 97.4 L Carbon Dioxide 19 L BUN 93 H Creatinine 2.6 H Glucose POC Glucose Lactic Acid Calcium Phosphorus Magnesium Direct Bilirubin AST ALT Alkaline Phosphatase Lactate Dehydrogenase Troponin T C-Reactive Protein Total Protein Albumin Prealbumin Triglycerides Cholesterol LDL Cholesterol Direct HDL Cholesterol PTH Intact Urine pH Urine WBC (Auto) Urine Creatinine Urine Total Protein Fluid Total Protein Vancomycin Trough Rheumatoid Factor Complement C4 Miscellaneous Test Crossmatch 10/30/16 10/30/16 10/31/16 17:11 23:56 00:40 WBC RBC Hgb Hct MCV MCH MCHC RDW Plt Count Lymph % (Auto) [place] % (Auto) Lymph # [place] # Baso # Seg Neutrophils % Seg Neuts % (Manual) Lymphocytes % (Manual) Monocytes % (Manual) Eosinophils % (Manual) Basophils % (Manual) Nucleated RBC % Seg Neutrophils # Seg Neutrophils # Man Lymphocytes # (Manual) Monocytes # (Manual) Eosinophils # (Manual) Basophils # (Manual) PT INR Fibrinogen dRVVT Confirm Interp Factor V Activity POC ABG pH POC ABG pCO2 POC ABG pO2 ABG pO2 ABG HCO3 ABG Base Excess ABG Hemoglobin Oxyhemoglobin Sodium Potassium Chloride Carbon Dioxide BUN Creatinine Glucose POC Glucose 106 H 117 H 120 H Lactic Acid Calcium Phosphorus Magnesium Direct Bilirubin AST ALT Alkaline Phosphatase Lactate Dehydrogenase Troponin T C-Reactive Protein Total Protein Albumin Prealbumin Triglycerides Cholesterol LDL Cholesterol Direct HDL Cholesterol PTH Intact Urine pH Urine WBC (Auto) Urine Creatinine Urine Total Protein Fluid Total Protein Vancomycin Trough Rheumatoid Factor Complement C4 Miscellaneous Test Crossmatch 10/31/16 10/31/16 10/31/16 05:43 07:15 07:15 WBC 12.1 H RBC 2.63 L Hgb 7.7 L Hct 23.3 L MCV MCH MCHC RDW 16.7 H Plt Count Lymph % (Auto) 11.7 L [place] % (Auto) 7.7 H Lymph # [place] # 0.9 H Baso # Seg Neutrophils % 78.0 H Seg Neuts % (Manual) Lymphocytes % (Manual) Monocytes % (Manual) Eosinophils % (Manual) Basophils % (Manual) Nucleated RBC % Seg Neutrophils # 9.4 H Seg Neutrophils # Man Lymphocytes # (Manual) Monocytes # (Manual) Eosinophils # (Manual) Basophils # (Manual) PT INR Fibrinogen dRVVT Confirm Interp Factor V Activity POC ABG pH POC ABG pCO2 POC ABG pO2 ABG pO2 ABG HCO3 ABG Base Excess ABG Hemoglobin Oxyhemoglobin Sodium Potassium Chloride 96.4 L Carbon Dioxide 21 L BUN 99 H Creatinine 2.6 H Glucose 144 H POC Glucose 125 H Lactic Acid Calcium Phosphorus 4.80 H Magnesium Direct Bilirubin AST ALT Alkaline Phosphatase Lactate Dehydrogenase Troponin T C-Reactive Protein Total Protein Albumin Prealbumin Triglycerides Cholesterol LDL Cholesterol Direct HDL Cholesterol PTH Intact Urine pH Urine WBC (Auto) Urine Creatinine Urine Total Protein Fluid Total Protein Vancomycin Trough Rheumatoid Factor Complement C4 Miscellaneous Test Crossmatch 10/31/16 10/31/16 11/01/16 11:46 18:34 00:20 WBC RBC Hgb Hct MCV MCH MCHC RDW Plt Count Lymph % (Auto) [place] % (Auto) Lymph # [place] # Baso # Seg Neutrophils % Seg Neuts % (Manual) Lymphocytes % (Manual) Monocytes % (Manual) Eosinophils % (Manual) Basophils % (Manual) Nucleated RBC % Seg Neutrophils # Seg Neutrophils # Man Lymphocytes # (Manual) Monocytes # (Manual) Eosinophils # (Manual) Basophils # (Manual) PT INR Fibrinogen dRVVT Confirm Interp Factor V Activity POC ABG pH POC ABG pCO2 POC ABG pO2 ABG pO2 ABG HCO3 ABG Base Excess ABG Hemoglobin Oxyhemoglobin Sodium Potassium Chloride Carbon Dioxide BUN Creatinine Glucose POC Glucose 159 H 140 H 132 H Lactic Acid Calcium Phosphorus Magnesium Direct Bilirubin AST ALT Alkaline Phosphatase Lactate Dehydrogenase Troponin T C-Reactive Protein Total Protein Albumin Prealbumin Triglycerides Cholesterol LDL Cholesterol Direct HDL Cholesterol PTH Intact Urine pH Urine WBC (Auto) Urine Creatinine Urine Total Protein Fluid Total Protein Vancomycin Trough Rheumatoid Factor Complement C4 Miscellaneous Test Crossmatch 11/01/16 11/01/16 11/01/16 04:55 04:55 06:11 WBC 11.2 H RBC 2.68 L Hgb 7.5 L Hct 23.7 L MCV MCH MCHC RDW 16.1 H Plt Count Lymph % (Auto) [place] % (Auto) 9.8 H Lymph # [place] # 1.1 H Baso # Seg Neutrophils % 70.8 H Seg Neuts % (Manual) Lymphocytes % (Manual) Monocytes % (Manual) Eosinophils % (Manual) Basophils % (Manual) Nucleated RBC % Seg Neutrophils # 7.9 H Seg Neutrophils # Man Lymphocytes # (Manual) Monocytes # (Manual) Eosinophils # (Manual) Basophils # (Manual) PT INR Fibrinogen dRVVT Confirm Interp Factor V Activity POC ABG pH POC ABG pCO2 POC ABG pO2 ABG pO2 ABG HCO3 ABG Base Excess ABG Hemoglobin Oxyhemoglobin Sodium Potassium 3.3 L D Chloride Carbon Dioxide BUN 61 H Creatinine 1.9 H Glucose 114 H POC Glucose 115 H Lactic Acid Calcium Phosphorus 1.80 L D Magnesium Direct Bilirubin AST ALT Alkaline Phosphatase Lactate Dehydrogenase Troponin T C-Reactive Protein Total Protein Albumin Prealbumin Triglycerides Cholesterol LDL Cholesterol Direct HDL Cholesterol PTH Intact Urine pH Urine WBC (Auto) Urine Creatinine Urine Total Protein Fluid Total Protein Vancomycin Trough Rheumatoid Factor Complement C4 Miscellaneous Test Crossmatch 11/01/16 11/01/16 11/01/16 12:29 18:23 23:58 WBC RBC Hgb Hct MCV MCH MCHC RDW Plt Count Lymph % (Auto) [place] % (Auto) Lymph # [place] # Baso # Seg Neutrophils % Seg Neuts % (Manual) Lymphocytes % (Manual) Monocytes % (Manual) Eosinophils % (Manual) Basophils % (Manual) Nucleated RBC % Seg Neutrophils # Seg Neutrophils # Man Lymphocytes # (Manual) Monocytes # (Manual) Eosinophils # (Manual) Basophils # (Manual) PT INR Fibrinogen dRVVT Confirm Interp Factor V Activity POC ABG pH POC ABG pCO2 POC ABG pO2 ABG pO2 ABG HCO3 ABG Base Excess ABG Hemoglobin Oxyhemoglobin Sodium Potassium Chloride Carbon Dioxide BUN Creatinine Glucose POC Glucose 142 H 143 H 128 H Lactic Acid Calcium Phosphorus Magnesium Direct Bilirubin AST ALT Alkaline Phosphatase Lactate Dehydrogenase Troponin T C-Reactive Protein Total Protein Albumin Prealbumin Triglycerides Cholesterol LDL Cholesterol Direct HDL Cholesterol PTH Intact Urine pH Urine WBC (Auto) Urine Creatinine Urine Total Protein Fluid Total Protein Vancomycin Trough Rheumatoid Factor Complement C4 Miscellaneous Test Crossmatch 11/02/16 11/02/16 11/02/16 04:16 05:29 11:58 WBC RBC Hgb Hct MCV MCH MCHC RDW Plt Count Lymph % (Auto) [place] % (Auto) Lymph # [place] # Baso # Seg Neutrophils % Seg Neuts % (Manual) Lymphocytes % (Manual) Monocytes % (Manual) Eosinophils % (Manual) Basophils % (Manual) Nucleated RBC % Seg Neutrophils # Seg Neutrophils # Man Lymphocytes # (Manual) Monocytes # (Manual) Eosinophils # (Manual) Basophils # (Manual) PT INR Fibrinogen dRVVT Confirm Interp Factor V Activity POC ABG pH POC ABG pCO2 POC ABG pO2 ABG pO2 ABG HCO3 ABG Base Excess ABG Hemoglobin Oxyhemoglobin Sodium Potassium 3.1 L Chloride Carbon Dioxide BUN 73 H Creatinine 2.3 H Glucose 112 H POC Glucose 135 H 149 H Lactic Acid Calcium Phosphorus Magnesium Direct Bilirubin AST ALT Alkaline Phosphatase Lactate Dehydrogenase Troponin T C-Reactive Protein Total Protein Albumin Prealbumin Triglycerides Cholesterol LDL Cholesterol Direct HDL Cholesterol PTH Intact Urine pH Urine WBC (Auto) Urine Creatinine Urine Total Protein Fluid Total Protein Vancomycin Trough Rheumatoid Factor Complement C4 Miscellaneous Test Crossmatch 11/02/16 11/02/16 11/03/16 17:42 22:54 06:00 WBC RBC Hgb Hct MCV MCH MCHC RDW Plt Count Lymph % (Auto) [place] % (Auto) Lymph # [place] # Baso # Seg Neutrophils % Seg Neuts % (Manual) Lymphocytes % (Manual) Monocytes % (Manual) Eosinophils % (Manual) Basophils % (Manual) Nucleated RBC % Seg Neutrophils # Seg Neutrophils # Man Lymphocytes # (Manual) Monocytes # (Manual) Eosinophils # (Manual) Basophils # (Manual) PT INR Fibrinogen dRVVT Confirm Interp Factor V Activity POC ABG pH POC ABG pCO2 POC ABG pO2 ABG pO2 ABG HCO3 ABG Base Excess ABG Hemoglobin Oxyhemoglobin Sodium Potassium Chloride 96.7 L Carbon Dioxide BUN 41 H Creatinine 1.5 H Glucose 145 H POC Glucose 182 H 115 H Lactic Acid Calcium Phosphorus 1.60 L D Magnesium 1.50 L Direct Bilirubin AST ALT Alkaline Phosphatase Lactate Dehydrogenase Troponin T C-Reactive Protein Total Protein Albumin Prealbumin Triglycerides Cholesterol LDL Cholesterol Direct HDL Cholesterol PTH Intact Urine pH Urine WBC (Auto) Urine Creatinine Urine Total Protein Fluid Total Protein Vancomycin Trough Rheumatoid Factor Complement C4 Miscellaneous Test Crossmatch 11/03/16 11/03/16 11/03/16 11:53 17:45 23:37 WBC RBC Hgb Hct MCV MCH MCHC RDW Plt Count Lymph % (Auto) [place] % (Auto) Lymph # [place] # Baso # Seg Neutrophils % Seg Neuts % (Manual) Lymphocytes % (Manual) Monocytes % (Manual) Eosinophils % (Manual) Basophils % (Manual) Nucleated RBC % Seg Neutrophils # Seg Neutrophils # Man Lymphocytes # (Manual) Monocytes # (Manual) Eosinophils # (Manual) Basophils # (Manual) PT INR Fibrinogen dRVVT Confirm Interp Factor V Activity POC ABG pH POC ABG pCO2 POC ABG pO2 ABG pO2 ABG HCO3 ABG Base Excess ABG Hemoglobin Oxyhemoglobin Sodium Potassium Chloride Carbon Dioxide BUN Creatinine Glucose POC Glucose 131 H 134 H 113 H Lactic Acid Calcium Phosphorus Magnesium Direct Bilirubin AST ALT Alkaline Phosphatase Lactate Dehydrogenase Troponin T C-Reactive Protein Total Protein Albumin Prealbumin Triglycerides Cholesterol LDL Cholesterol Direct HDL Cholesterol PTH Intact Urine pH Urine WBC (Auto) Urine Creatinine Urine Total Protein Fluid Total Protein Vancomycin Trough Rheumatoid Factor Complement C4 Miscellaneous Test Crossmatch 11/04/16 11/04/16 11/04/16 05:41 06:00 12:10 WBC RBC Hgb Hct MCV MCH MCHC RDW Plt Count Lymph % (Auto) [place] % (Auto) Lymph # [place] # Baso # Seg Neutrophils % Seg Neuts % (Manual) Lymphocytes % (Manual) Monocytes % (Manual) Eosinophils % (Manual) Basophils % (Manual) Nucleated RBC % Seg Neutrophils # Seg Neutrophils # Man Lymphocytes # (Manual) Monocytes # (Manual) Eosinophils # (Manual) Basophils # (Manual) PT INR Fibrinogen dRVVT Confirm Interp Factor V Activity POC ABG pH POC ABG pCO2 POC ABG pO2 ABG pO2 ABG HCO3 ABG Base Excess ABG Hemoglobin Oxyhemoglobin Sodium Potassium Chloride 96.7 L Carbon Dioxide BUN 52 H Creatinine 1.9 H Glucose 126 H POC Glucose 137 H 191 H Lactic Acid Calcium Phosphorus Magnesium Direct Bilirubin AST ALT Alkaline Phosphatase Lactate Dehydrogenase Troponin T C-Reactive Protein Total Protein Albumin Prealbumin Triglycerides Cholesterol LDL Cholesterol Direct HDL Cholesterol PTH Intact Urine pH Urine WBC (Auto) Urine Creatinine Urine Total Protein Fluid Total Protein Vancomycin Trough Rheumatoid Factor Complement C4 Miscellaneous Test Crossmatch 11/04/16 11/05/16 11/05/16 22:57 03:10 05:10 WBC RBC Hgb Hct MCV MCH MCHC RDW Plt Count Lymph % (Auto) [place] % (Auto) Lymph # [place] # Baso # Seg Neutrophils % Seg Neuts % (Manual) Lymphocytes % (Manual) Monocytes % (Manual) Eosinophils % (Manual) Basophils % (Manual) Nucleated RBC % Seg Neutrophils # Seg Neutrophils # Man Lymphocytes # (Manual) Monocytes # (Manual) Eosinophils # (Manual) Basophils # (Manual) PT INR Fibrinogen dRVVT Confirm Interp Factor V Activity POC ABG pH POC ABG pCO2 POC ABG pO2 ABG pO2 ABG HCO3 ABG Base Excess ABG Hemoglobin Oxyhemoglobin Sodium 136 L Potassium Chloride 97.2 L Carbon Dioxide BUN 32 H Creatinine 1.3 H Glucose 123 H POC Glucose 125 H 108 H Lactic Acid Calcium 7.8 L Phosphorus Magnesium Direct Bilirubin AST ALT Alkaline Phosphatase Lactate Dehydrogenase Troponin T C-Reactive Protein Total Protein Albumin Prealbumin Triglycerides Cholesterol LDL Cholesterol Direct HDL Cholesterol PTH Intact Urine pH Urine WBC (Auto) Urine Creatinine Urine Total Protein Fluid Total Protein Vancomycin Trough Rheumatoid Factor Complement C4 Miscellaneous Test Crossmatch 11/05/16 11/05/16 11/05/16 12:23 13:09 13:25 WBC RBC Hgb Hct MCV MCH MCHC RDW Plt Count Lymph % (Auto) [place] % (Auto) Lymph # [place] # Baso # Seg Neutrophils % Seg Neuts % (Manual) Lymphocytes % (Manual) Monocytes % (Manual) Eosinophils % (Manual) Basophils % (Manual) Nucleated RBC % Seg Neutrophils # Seg Neutrophils # Man Lymphocytes # (Manual) Monocytes # (Manual) Eosinophils # (Manual) Basophils # (Manual) PT INR Fibrinogen dRVVT Confirm Interp Factor V Activity POC ABG pH POC ABG pCO2 POC ABG pO2 ABG pO2 ABG HCO3 ABG Base Excess ABG Hemoglobin Oxyhemoglobin Sodium Potassium Chloride Carbon Dioxide BUN Creatinine Glucose POC Glucose 124 H Lactic Acid Calcium Phosphorus Magnesium Direct Bilirubin AST ALT Alkaline Phosphatase Lactate Dehydrogenase Troponin T C-Reactive Protein 11.40 H Total Protein Albumin Prealbumin Triglycerides Cholesterol LDL Cholesterol Direct HDL Cholesterol PTH Intact Urine pH 9.0 H Urine WBC (Auto) Urine Creatinine Urine Total Protein Fluid Total Protein Vancomycin Trough Rheumatoid Factor Complement C4 Miscellaneous Test Crossmatch 11/05/16 11/05/16 11/05/16 13:25 17:54 23:42 WBC RBC Hgb Hct MCV MCH MCHC RDW Plt Count Lymph % (Auto) [place] % (Auto) Lymph # [place] # Baso # Seg Neutrophils % Seg Neuts % (Manual) Lymphocytes % (Manual) Monocytes % (Manual) Eosinophils % (Manual) Basophils % (Manual) Nucleated RBC % Seg Neutrophils # Seg Neutrophils # Man Lymphocytes # (Manual) Monocytes # (Manual) Eosinophils # (Manual) Basophils # (Manual) PT INR Fibrinogen dRVVT Confirm Interp Factor V Activity POC ABG pH POC ABG pCO2 POC ABG pO2 ABG pO2 ABG HCO3 ABG Base Excess ABG Hemoglobin Oxyhemoglobin Sodium Potassium Chloride Carbon Dioxide BUN Creatinine Glucose POC Glucose 114 H 134 H Lactic Acid Calcium Phosphorus Magnesium Direct Bilirubin AST ALT Alkaline Phosphatase Lactate Dehydrogenase Troponin T C-Reactive Protein Total Protein Albumin Prealbumin Triglycerides Cholesterol LDL Cholesterol Direct HDL Cholesterol PTH Intact Urine pH Urine WBC (Auto) Urine Creatinine Urine Total Protein Fluid Total Protein Vancomycin Trough Rheumatoid Factor Complement C4 Miscellaneous Test Flexitest 1 H Crossmatch 11/06/16 11/06/16 11/06/16 04:56 06:25 06:25 WBC RBC 2.50 L Hgb 7.3 L Hct 22.5 L MCV MCH MCHC RDW 16.9 H Plt Count Lymph % (Auto) [place] % (Auto) 10.5 H Lymph # [place] # 1.1 H Baso # Seg Neutrophils % Seg Neuts % (Manual) Lymphocytes % (Manual) Monocytes % (Manual) Eosinophils % (Manual) Basophils % (Manual) Nucleated RBC % Seg Neutrophils # Seg Neutrophils # Man Lymphocytes # (Manual) Monocytes # (Manual) Eosinophils # (Manual) Basophils # (Manual) PT INR Fibrinogen dRVVT Confirm Interp Factor V Activity POC ABG pH POC ABG pCO2 POC ABG pO2 ABG pO2 ABG HCO3 ABG Base Excess ABG Hemoglobin Oxyhemoglobin Sodium Potassium 5.1 H Chloride 95.9 L Carbon Dioxide BUN 52 H Creatinine 1.8 H Glucose 117 H POC Glucose 120 H Lactic Acid Calcium Phosphorus Magnesium Direct Bilirubin AST 103 H ALT 77 H Alkaline Phosphatase 285 H Lactate Dehydrogenase Troponin T C-Reactive Protein Total Protein 6.2 L Albumin 1.8 L Prealbumin 0.180 L Triglycerides Cholesterol LDL Cholesterol Direct HDL Cholesterol PTH Intact Urine pH Urine WBC (Auto) Urine Creatinine Urine Total Protein Fluid Total Protein Vancomycin Trough Rheumatoid Factor Complement C4 Miscellaneous Test Crossmatch 11/06/16 11/06/16 11/06/16 11:56 17:14 23:52 WBC RBC Hgb Hct MCV MCH MCHC RDW Plt Count Lymph % (Auto) [place] % (Auto) Lymph # [place] # Baso # Seg Neutrophils % Seg Neuts % (Manual) Lymphocytes % (Manual) Monocytes % (Manual) Eosinophils % (Manual) Basophils % (Manual) Nucleated RBC % Seg Neutrophils # Seg Neutrophils # Man Lymphocytes # (Manual) Monocytes # (Manual) Eosinophils # (Manual) Basophils # (Manual) PT INR Fibrinogen dRVVT Confirm Interp Factor V Activity POC ABG pH POC ABG pCO2 POC ABG pO2 ABG pO2 ABG HCO3 ABG Base Excess ABG Hemoglobin Oxyhemoglobin Sodium Potassium Chloride Carbon Dioxide BUN Creatinine Glucose POC Glucose 141 H 125 H 130 H Lactic Acid Calcium Phosphorus Magnesium Direct Bilirubin AST ALT Alkaline Phosphatase Lactate Dehydrogenase Troponin T C-Reactive Protein Total Protein Albumin Prealbumin Triglycerides Cholesterol LDL Cholesterol Direct HDL Cholesterol PTH Intact Urine pH Urine WBC (Auto) Urine Creatinine Urine Total Protein Fluid Total Protein Vancomycin Trough Rheumatoid Factor Complement C4 Miscellaneous Test Crossmatch 11/07/16 11/07/16 11/07/16 06:30 06:30 09:37 WBC RBC 2.18 L Hgb 6.3 L Hct 19.7 L* MCV MCH MCHC RDW 16.8 H Plt Count Lymph % (Auto) [place] % (Auto) 10.0 H Lymph # [place] # 1.0 H Baso # Seg Neutrophils % Seg Neuts % (Manual) Lymphocytes % (Manual) Monocytes % (Manual) Eosinophils % (Manual) Basophils % (Manual) Nucleated RBC % Seg Neutrophils # Seg Neutrophils # Man Lymphocytes # (Manual) Monocytes # (Manual) Eosinophils # (Manual) Basophils # (Manual) PT INR Fibrinogen dRVVT Confirm Interp Factor V Activity POC ABG pH POC ABG pCO2 POC ABG pO2 ABG pO2 ABG HCO3 ABG Base Excess ABG Hemoglobin Oxyhemoglobin Sodium 135 L Potassium Chloride 95.6 L Carbon Dioxide BUN 70 H Creatinine 2.0 H Glucose 126 H POC Glucose Lactic Acid Calcium Phosphorus Magnesium Direct Bilirubin AST ALT Alkaline Phosphatase Lactate Dehydrogenase Troponin T C-Reactive Protein Total Protein Albumin Prealbumin Triglycerides Cholesterol LDL Cholesterol Direct HDL Cholesterol PTH Intact Urine pH Urine WBC (Auto) Urine Creatinine Urine Total Protein Fluid Total Protein Vancomycin Trough Rheumatoid Factor Complement C4 Miscellaneous Test Crossmatch See Detail 11/07/16 11/07/16 11/07/16 12:52 18:51 21:26 WBC RBC Hgb Hct MCV MCH MCHC RDW Plt Count Lymph % (Auto) [place] % (Auto) Lymph # [place] # Baso # Seg Neutrophils % Seg Neuts % (Manual) Lymphocytes % (Manual) Monocytes % (Manual) Eosinophils % (Manual) Basophils % (Manual) Nucleated RBC % Seg Neutrophils # Seg Neutrophils # Man Lymphocytes # (Manual) Monocytes # (Manual) Eosinophils # (Manual) Basophils # (Manual) PT INR Fibrinogen dRVVT Confirm Interp Factor V Activity POC ABG pH 7.523 H POC ABG pCO2 34.6 L POC ABG pO2 53 L ABG pO2 ABG HCO3 ABG Base Excess ABG Hemoglobin Oxyhemoglobin Sodium Potassium Chloride Carbon Dioxide BUN Creatinine Glucose POC Glucose 142 H 155 H Lactic Acid Calcium Phosphorus Magnesium Direct Bilirubin AST ALT Alkaline Phosphatase Lactate Dehydrogenase Troponin T C-Reactive Protein Total Protein Albumin Prealbumin Triglycerides Cholesterol LDL Cholesterol Direct HDL Cholesterol PTH Intact Urine pH Urine WBC (Auto) Urine Creatinine Urine Total Protein Fluid Total Protein Vancomycin Trough Rheumatoid Factor Complement C4 Miscellaneous Test Crossmatch 11/07/16 11/08/16 11/08/16 21:34 13:03 23:37 WBC RBC 2.63 L Hgb 7.7 L Hct 22.7 L MCV MCH MCHC RDW 17.0 H Plt Count Lymph % (Auto) [place] % (Auto) Lymph # [place] # Baso # Seg Neutrophils % Seg Neuts % (Manual) Lymphocytes % (Manual) Monocytes % (Manual) Eosinophils % (Manual) Basophils % (Manual) Nucleated RBC % Seg Neutrophils # Seg Neutrophils # Man Lymphocytes # (Manual) Monocytes # (Manual) Eosinophils # (Manual) Basophils # (Manual) PT INR Fibrinogen dRVVT Confirm Interp Factor V Activity POC ABG pH 7.478 H POC ABG pCO2 34.0 L POC ABG pO2 50 L ABG pO2 ABG HCO3 ABG Base Excess ABG Hemoglobin Oxyhemoglobin Sodium Potassium Chloride Carbon Dioxide BUN Creatinine Glucose POC Glucose 113 H Lactic Acid Calcium Phosphorus Magnesium Direct Bilirubin AST ALT Alkaline Phosphatase Lactate Dehydrogenase Troponin T C-Reactive Protein Total Protein Albumin Prealbumin Triglycerides Cholesterol LDL Cholesterol Direct HDL Cholesterol PTH Intact Urine pH Urine WBC (Auto) Urine Creatinine Urine Total Protein Fluid Total Protein Vancomycin Trough Rheumatoid Factor Complement C4 Miscellaneous Test Crossmatch 11/09/16 11/09/16 11/09/16 04:35 10:15 18:21 WBC RBC 2.68 L Hgb 7.8 L Hct 23.3 L MCV MCH MCHC RDW 17.0 H Plt Count Lymph % (Auto) [place] % (Auto) 12.1 H Lymph # [place] # 1.1 H Baso # Seg Neutrophils % Seg Neuts % (Manual) Lymphocytes % (Manual) Monocytes % (Manual) Eosinophils % (Manual) Basophils % (Manual) Nucleated RBC % Seg Neutrophils # Seg Neutrophils # Man Lymphocytes # (Manual) Monocytes # (Manual) Eosinophils # (Manual) Basophils # (Manual) PT INR Fibrinogen dRVVT Confirm Interp Factor V Activity POC ABG pH POC ABG pCO2 POC ABG pO2 ABG pO2 ABG HCO3 ABG Base Excess ABG Hemoglobin Oxyhemoglobin Sodium Potassium Chloride Carbon Dioxide BUN 51 H Creatinine 1.8 H Glucose POC Glucose 60 L Lactic Acid Calcium 8.3 L Phosphorus Magnesium Direct Bilirubin AST ALT Alkaline Phosphatase Lactate Dehydrogenase Troponin T C-Reactive Protein Total Protein Albumin Prealbumin Triglycerides Cholesterol LDL Cholesterol Direct HDL Cholesterol PTH Intact Urine pH Urine WBC (Auto) Urine Creatinine Urine Total Protein Fluid Total Protein Vancomycin Trough Rheumatoid Factor Complement C4 Miscellaneous Test Crossmatch 11/09/16 11/10/16 11/10/16 18:55 07:00 11:51 WBC RBC Hgb Hct MCV MCH MCHC RDW Plt Count Lymph % (Auto) [place] % (Auto) Lymph # [place] # Baso # Seg Neutrophils % Seg Neuts % (Manual) Lymphocytes % (Manual) Monocytes % (Manual) Eosinophils % (Manual) Basophils % (Manual) Nucleated RBC % Seg Neutrophils # Seg Neutrophils # Man Lymphocytes # (Manual) Monocytes # (Manual) Eosinophils # (Manual) Basophils # (Manual) PT INR Fibrinogen dRVVT Confirm Interp Factor V Activity POC ABG pH POC ABG pCO2 POC ABG pO2 ABG pO2 ABG HCO3 ABG Base Excess ABG Hemoglobin Oxyhemoglobin Sodium Potassium 3.0 L D Chloride 97.4 L Carbon Dioxide BUN 28 H Creatinine 1.3 H Glucose POC Glucose 68 L 120 H Lactic Acid Calcium 7.8 L Phosphorus Magnesium Direct Bilirubin AST ALT Alkaline Phosphatase Lactate Dehydrogenase Troponin T C-Reactive Protein Total Protein Albumin Prealbumin Triglycerides Cholesterol LDL Cholesterol Direct HDL Cholesterol PTH Intact Urine pH Urine WBC (Auto) Urine Creatinine Urine Total Protein Fluid Total Protein Vancomycin Trough Rheumatoid Factor Complement C4 Miscellaneous Test Crossmatch 11/10/16 11/11/16 11/11/16 14:20 06:59 06:59 WBC RBC 2.81 L Hgb 8.1 L Hct 24.4 L MCV MCH MCHC RDW 16.4 H Plt Count Lymph % (Auto) [place] % (Auto) 10.8 H Lymph # [place] # 1.0 H Baso # Seg Neutrophils % Seg Neuts % (Manual) Lymphocytes % (Manual) Monocytes % (Manual) Eosinophils % (Manual) Basophils % (Manual) Nucleated RBC % Seg Neutrophils # Seg Neutrophils # Man Lymphocytes # (Manual) Monocytes # (Manual) Eosinophils # (Manual) Basophils # (Manual) PT INR Fibrinogen dRVVT Confirm Interp Factor V Activity POC ABG pH POC ABG pCO2 POC ABG pO2 ABG pO2 ABG HCO3 ABG Base Excess ABG Hemoglobin Oxyhemoglobin Sodium Potassium Chloride Carbon Dioxide BUN Creatinine Glucose POC Glucose Lactic Acid Calcium Phosphorus Magnesium Direct Bilirubin AST ALT Alkaline Phosphatase Lactate Dehydrogenase 196 H Troponin T C-Reactive Protein Total Protein 6.1 L Albumin Prealbumin Triglycerides Cholesterol LDL Cholesterol Direct HDL Cholesterol PTH Intact Urine pH Urine WBC (Auto) Urine Creatinine Urine Total Protein Fluid Total Protein < 3.0 L Vancomycin Trough Rheumatoid Factor Complement C4 Miscellaneous Test Crossmatch 11/11/16 11/11/16 11/12/16 06:59 09:50 04:00 WBC RBC Hgb Hct MCV MCH MCHC RDW Plt Count Lymph % (Auto) [place] % (Auto) Lymph # [place] # Baso # Seg Neutrophils % Seg Neuts % (Manual) Lymphocytes % (Manual) Monocytes % (Manual) Eosinophils % (Manual) Basophils % (Manual) Nucleated RBC % Seg Neutrophils # Seg Neutrophils # Man Lymphocytes # (Manual) Monocytes # (Manual) Eosinophils # (Manual) Basophils # (Manual) PT INR 1.18 H Fibrinogen dRVVT Confirm Interp Factor V Activity POC ABG pH POC ABG pCO2 POC ABG pO2 ABG pO2 ABG HCO3 ABG Base Excess ABG Hemoglobin Oxyhemoglobin Sodium 136 L 133 L Potassium Chloride 96.1 L 94.8 L Carbon Dioxide 21 L BUN 37 H 42 H Creatinine 1.8 H 2.0 H Glucose POC Glucose Lactic Acid Calcium Phosphorus Magnesium Direct Bilirubin AST ALT Alkaline Phosphatase Lactate Dehydrogenase Troponin T C-Reactive Protein Total Protein Albumin Prealbumin Triglycerides Cholesterol LDL Cholesterol Direct HDL Cholesterol PTH Intact Urine pH Urine WBC (Auto) Urine Creatinine Urine Total Protein Fluid Total Protein Vancomycin Trough Rheumatoid Factor Complement C4 Miscellaneous Test Crossmatch 11/12/16 11/12/16 11/13/16 04:00 23:55 05:53 WBC RBC Hgb 8.9 L Hct 27.2 L MCV MCH MCHC RDW Plt Count Lymph % (Auto) [place] % (Auto) Lymph # [place] # Baso # Seg Neutrophils % Seg Neuts % (Manual) Lymphocytes % (Manual) Monocytes % (Manual) Eosinophils % (Manual) Basophils % (Manual) Nucleated RBC % Seg Neutrophils # Seg Neutrophils # Man Lymphocytes # (Manual) Monocytes # (Manual) Eosinophils # (Manual) Basophils # (Manual) PT INR Fibrinogen dRVVT Confirm Interp Factor V Activity POC ABG pH POC ABG pCO2 POC ABG pO2 ABG pO2 ABG HCO3 ABG Base Excess ABG Hemoglobin Oxyhemoglobin Sodium Potassium Chloride Carbon Dioxide BUN Creatinine Glucose POC Glucose 132 H 120 H Lactic Acid Calcium Phosphorus Magnesium Direct Bilirubin AST ALT Alkaline Phosphatase Lactate Dehydrogenase Troponin T C-Reactive Protein Total Protein Albumin Prealbumin Triglycerides Cholesterol LDL Cholesterol Direct HDL Cholesterol PTH Intact Urine pH Urine WBC (Auto) Urine Creatinine Urine Total Protein Fluid Total Protein Vancomycin Trough Rheumatoid Factor Complement C4 Miscellaneous Test Crossmatch 11/13/16 11/13/16 11/13/16 11:43 17:09 23:41 WBC RBC Hgb Hct MCV MCH MCHC RDW Plt Count Lymph % (Auto) [place] % (Auto) Lymph # [place] # Baso # Seg Neutrophils % Seg Neuts % (Manual) Lymphocytes % (Manual) Monocytes % (Manual) Eosinophils % (Manual) Basophils % (Manual) Nucleated RBC % Seg Neutrophils # Seg Neutrophils # Man Lymphocytes # (Manual) Monocytes # (Manual) Eosinophils # (Manual) Basophils # (Manual) PT INR Fibrinogen dRVVT Confirm Interp Factor V Activity POC ABG pH POC ABG pCO2 POC ABG pO2 ABG pO2 ABG HCO3 ABG Base Excess ABG Hemoglobin Oxyhemoglobin Sodium Potassium Chloride Carbon Dioxide BUN Creatinine Glucose POC Glucose 114 H 113 H 108 H Lactic Acid Calcium Phosphorus Magnesium Direct Bilirubin AST ALT Alkaline Phosphatase Lactate Dehydrogenase Troponin T C-Reactive Protein Total Protein Albumin Prealbumin Triglycerides Cholesterol LDL Cholesterol Direct HDL Cholesterol PTH Intact Urine pH Urine WBC (Auto) Urine Creatinine Urine Total Protein Fluid Total Protein Vancomycin Trough Rheumatoid Factor Complement C4 Miscellaneous Test Crossmatch 11/13/16 11/15/16 11/15/16 Unknown 00:37 03:30 WBC 11.2 H RBC 2.72 L Hgb 7.6 L Hct 23.4 L MCV MCH MCHC RDW 16.5 H Plt Count Lymph % (Auto) [place] % (Auto) Lymph # [place] # Baso # Seg Neutrophils % Seg Neuts % (Manual) Lymphocytes % (Manual) Monocytes % (Manual) Eosinophils % (Manual) Basophils % (Manual) Nucleated RBC % Seg Neutrophils # Seg Neutrophils # Man Lymphocytes # (Manual) Monocytes # (Manual) Eosinophils # (Manual) Basophils # (Manual) PT INR Fibrinogen dRVVT Confirm Interp Factor V Activity POC ABG pH POC ABG pCO2 POC ABG pO2 ABG pO2 ABG HCO3 ABG Base Excess ABG Hemoglobin Oxyhemoglobin Sodium 135 L Potassium Chloride 95.2 L Carbon Dioxide BUN 52 H Creatinine 2.2 H Glucose POC Glucose 108 H Lactic Acid Calcium Phosphorus Magnesium Direct Bilirubin AST ALT Alkaline Phosphatase Lactate Dehydrogenase Troponin T C-Reactive Protein Total Protein Albumin Prealbumin Triglycerides Cholesterol LDL Cholesterol Direct HDL Cholesterol PTH Intact Urine pH Urine WBC (Auto) Urine Creatinine Urine Total Protein Fluid Total Protein Vancomycin Trough Rheumatoid Factor Complement C4 Miscellaneous Test Crossmatch 11/15/16 11/15/16 11/15/16 03:30 05:04 11:50 WBC RBC Hgb Hct MCV MCH MCHC RDW Plt Count Lymph % (Auto) [place] % (Auto) Lymph # [place] # Baso # Seg Neutrophils % Seg Neuts % (Manual) Lymphocytes % (Manual) Monocytes % (Manual) Eosinophils % (Manual) Basophils % (Manual) Nucleated RBC % Seg Neutrophils # Seg Neutrophils # Man Lymphocytes # (Manual) Monocytes # (Manual) Eosinophils # (Manual) Basophils # (Manual) PT INR Fibrinogen dRVVT Confirm Interp Factor V Activity POC ABG pH POC ABG pCO2 POC ABG pO2 ABG pO2 ABG HCO3 ABG Base Excess ABG Hemoglobin Oxyhemoglobin Sodium Potassium 3.4 L Chloride Carbon Dioxide BUN 25 H Creatinine 1.5 H Glucose 103 H POC Glucose 121 H 144 H Lactic Acid Calcium Phosphorus Magnesium Direct Bilirubin AST ALT Alkaline Phosphatase Lactate Dehydrogenase Troponin T C-Reactive Protein Total Protein Albumin Prealbumin Triglycerides Cholesterol LDL Cholesterol Direct HDL Cholesterol PTH Intact Urine pH Urine WBC (Auto) Urine Creatinine Urine Total Protein Fluid Total Protein Vancomycin Trough Rheumatoid Factor Complement C4 Miscellaneous Test Crossmatch 11/15/16 11/15/16 11/16/16 21:28 23:20 11:44 WBC RBC Hgb Hct MCV MCH MCHC RDW Plt Count Lymph % (Auto) [place] % (Auto) Lymph # [place] # Baso # Seg Neutrophils % Seg Neuts % (Manual) Lymphocytes % (Manual) Monocytes % (Manual) Eosinophils % (Manual) Basophils % (Manual) Nucleated RBC % Seg Neutrophils # Seg Neutrophils # Man Lymphocytes # (Manual) Monocytes # (Manual) Eosinophils # (Manual) Basophils # (Manual) PT INR Fibrinogen dRVVT Confirm Interp Factor V Activity POC ABG pH 7.462 H POC ABG pCO2 POC ABG pO2 71 L ABG pO2 ABG HCO3 ABG Base Excess ABG Hemoglobin Oxyhemoglobin Sodium Potassium Chloride Carbon Dioxide BUN Creatinine Glucose POC Glucose 116 H 133 H Lactic Acid Calcium Phosphorus Magnesium Direct Bilirubin AST ALT Alkaline Phosphatase Lactate Dehydrogenase Troponin T C-Reactive Protein Total Protein Albumin Prealbumin Triglycerides Cholesterol LDL Cholesterol Direct HDL Cholesterol PTH Intact Urine pH Urine WBC (Auto) Urine Creatinine Urine Total Protein Fluid Total Protein Vancomycin Trough Rheumatoid Factor Complement C4 Miscellaneous Test Crossmatch 11/16/16 11/16/16 11/16/16 12:20 17:05 23:35 WBC 11.7 H RBC 2.73 L Hgb 7.6 L Hct 23.7 L MCV MCH MCHC RDW 16.6 H Plt Count Lymph % (Auto) [place] % (Auto) Lymph # [place] # Baso # Seg Neutrophils % Seg Neuts % (Manual) Lymphocytes % (Manual) Monocytes % (Manual) Eosinophils % (Manual) Basophils % (Manual) Nucleated RBC % Seg Neutrophils # Seg Neutrophils # Man Lymphocytes # (Manual) Monocytes # (Manual) Eosinophils # (Manual) Basophils # (Manual) PT INR Fibrinogen dRVVT Confirm Interp Factor V Activity POC ABG pH POC ABG pCO2 POC ABG pO2 ABG pO2 ABG HCO3 ABG Base Excess ABG Hemoglobin Oxyhemoglobin Sodium Potassium Chloride Carbon Dioxide BUN Creatinine Glucose POC Glucose 154 H 125 H Lactic Acid Calcium Phosphorus Magnesium Direct Bilirubin AST ALT Alkaline Phosphatase Lactate Dehydrogenase Troponin T C-Reactive Protein Total Protein Albumin Prealbumin Triglycerides Cholesterol LDL Cholesterol Direct HDL Cholesterol PTH Intact Urine pH Urine WBC (Auto) Urine Creatinine Urine Total Protein Fluid Total Protein Vancomycin Trough Rheumatoid Factor Complement C4 Miscellaneous Test Crossmatch 11/17/16 11/17/16 11/17/16 03:20 03:20 03:20 WBC RBC 2.55 L Hgb 7.3 L Hct 21.9 L MCV MCH MCHC RDW 16.6 H Plt Count Lymph % (Auto) [place] % (Auto) 11.5 H Lymph # [place] # 1.1 H Baso # Seg Neutrophils % Seg Neuts % (Manual) Lymphocytes % (Manual) Monocytes % (Manual) Eosinophils % (Manual) Basophils % (Manual) Nucleated RBC % Seg Neutrophils # Seg Neutrophils # Man Lymphocytes # (Manual) Monocytes # (Manual) Eosinophils # (Manual) Basophils # (Manual) PT 16.8 H INR 1.37 H Fibrinogen dRVVT Confirm Interp Factor V Activity POC ABG pH POC ABG pCO2 POC ABG pO2 ABG pO2 ABG HCO3 ABG Base Excess ABG Hemoglobin Oxyhemoglobin Sodium Potassium 3.5 L Chloride Carbon Dioxide BUN 21 H Creatinine Glucose POC Glucose Lactic Acid Calcium 7.9 L Phosphorus Magnesium Direct Bilirubin AST ALT Alkaline Phosphatase Lactate Dehydrogenase Troponin T C-Reactive Protein Total Protein Albumin Prealbumin Triglycerides Cholesterol LDL Cholesterol Direct HDL Cholesterol PTH Intact Urine pH Urine WBC (Auto) Urine Creatinine Urine Total Protein Fluid Total Protein Vancomycin Trough Rheumatoid Factor Complement C4 Miscellaneous Test Crossmatch 11/17/16 11/17/16 11/17/16 06:34 11:21 21:22 WBC RBC Hgb Hct MCV MCH MCHC RDW Plt Count Lymph % (Auto) [place] % (Auto) Lymph # [place] # Baso # Seg Neutrophils % Seg Neuts % (Manual) Lymphocytes % (Manual) Monocytes % (Manual) Eosinophils % (Manual) Basophils % (Manual) Nucleated RBC % Seg Neutrophils # Seg Neutrophils # Man Lymphocytes # (Manual) Monocytes # (Manual) Eosinophils # (Manual) Basophils # (Manual) PT INR Fibrinogen dRVVT Confirm Interp Factor V Activity POC ABG pH 7.467 H POC ABG pCO2 POC ABG pO2 73 L ABG pO2 ABG HCO3 ABG Base Excess ABG Hemoglobin Oxyhemoglobin Sodium Potassium Chloride Carbon Dioxide BUN Creatinine Glucose POC Glucose 121 H 119 H Lactic Acid Calcium Phosphorus Magnesium Direct Bilirubin AST ALT Alkaline Phosphatase Lactate Dehydrogenase Troponin T C-Reactive Protein Total Protein Albumin Prealbumin Triglycerides Cholesterol LDL Cholesterol Direct HDL Cholesterol PTH Intact Urine pH Urine WBC (Auto) Urine Creatinine Urine Total Protein Fluid Total Protein Vancomycin Trough Rheumatoid Factor Complement C4 Miscellaneous Test Crossmatch 11/18/16 11/18/16 11/19/16 12:16 17:19 00:00 WBC RBC Hgb Hct MCV MCH MCHC RDW Plt Count Lymph % (Auto) [place] % (Auto) Lymph # [place] # Baso # Seg Neutrophils % Seg Neuts % (Manual) Lymphocytes % (Manual) Monocytes % (Manual) Eosinophils % (Manual) Basophils % (Manual) Nucleated RBC % Seg Neutrophils # Seg Neutrophils # Man Lymphocytes # (Manual) Monocytes # (Manual) Eosinophils # (Manual) Basophils # (Manual) PT INR Fibrinogen dRVVT Confirm Interp Factor V Activity POC ABG pH POC ABG pCO2 POC ABG pO2 ABG pO2 ABG HCO3 ABG Base Excess ABG Hemoglobin Oxyhemoglobin Sodium Potassium Chloride Carbon Dioxide BUN Creatinine Glucose POC Glucose 124 H 162 H 139 H Lactic Acid Calcium Phosphorus Magnesium Direct Bilirubin AST ALT Alkaline Phosphatase Lactate Dehydrogenase Troponin T C-Reactive Protein Total Protein Albumin Prealbumin Triglycerides Cholesterol LDL Cholesterol Direct HDL Cholesterol PTH Intact Urine pH Urine WBC (Auto) Urine Creatinine Urine Total Protein Fluid Total Protein Vancomycin Trough Rheumatoid Factor Complement C4 Miscellaneous Test Crossmatch 11/19/16 11/19/16 11/20/16 05:00 12:43 00:40 WBC RBC Hgb Hct MCV MCH MCHC RDW Plt Count Lymph % (Auto) [place] % (Auto) Lymph # [place] # Baso # Seg Neutrophils % Seg Neuts % (Manual) Lymphocytes % (Manual) Monocytes % (Manual) Eosinophils % (Manual) Basophils % (Manual) Nucleated RBC % Seg Neutrophils # Seg Neutrophils # Man Lymphocytes # (Manual) Monocytes # (Manual) Eosinophils # (Manual) Basophils # (Manual) PT INR Fibrinogen dRVVT Confirm Interp Factor V Activity POC ABG pH POC ABG pCO2 POC ABG pO2 ABG pO2 ABG HCO3 ABG Base Excess ABG Hemoglobin Oxyhemoglobin Sodium Potassium Chloride Carbon Dioxide BUN Creatinine Glucose POC Glucose 110 H 125 H 136 H Lactic Acid Calcium Phosphorus Magnesium Direct Bilirubin AST ALT Alkaline Phosphatase Lactate Dehydrogenase Troponin T C-Reactive Protein Total Protein Albumin Prealbumin Triglycerides Cholesterol LDL Cholesterol Direct HDL Cholesterol PTH Intact Urine pH Urine WBC (Auto) Urine Creatinine Urine Total Protein Fluid Total Protein Vancomycin Trough Rheumatoid Factor Complement C4 Miscellaneous Test Crossmatch 11/20/16 11/20/16 11/20/16 05:00 05:00 05:51 WBC 13.1 H RBC 2.74 L Hgb 7.7 L Hct 23.6 L MCV MCH MCHC RDW 16.9 H Plt Count Lymph % (Auto) [place] % (Auto) 10.8 H Lymph # [place] # 1.4 H Baso # Seg Neutrophils % Seg Neuts % (Manual) Lymphocytes % (Manual) Monocytes % (Manual) Eosinophils % (Manual) Basophils % (Manual) Nucleated RBC % Seg Neutrophils # 7.9 H Seg Neutrophils # Man Lymphocytes # (Manual) Monocytes # (Manual) Eosinophils # (Manual) Basophils # (Manual) PT INR Fibrinogen dRVVT Confirm Interp Factor V Activity POC ABG pH POC ABG pCO2 POC ABG pO2 ABG pO2 ABG HCO3 ABG Base Excess ABG Hemoglobin Oxyhemoglobin Sodium Potassium Chloride Carbon Dioxide BUN 31 H Creatinine 1.8 H Glucose 129 H POC Glucose 133 H Lactic Acid Calcium Phosphorus Magnesium Direct Bilirubin AST ALT Alkaline Phosphatase Lactate Dehydrogenase Troponin T C-Reactive Protein Total Protein Albumin Prealbumin Triglycerides Cholesterol LDL Cholesterol Direct HDL Cholesterol PTH Intact Urine pH Urine WBC (Auto) Urine Creatinine Urine Total Protein Fluid Total Protein Vancomycin Trough Rheumatoid Factor Complement C4 Miscellaneous Test Crossmatch 11/20/16 11/20/16 11/21/16 12:40 18:10 01:20 WBC RBC Hgb Hct MCV MCH MCHC RDW Plt Count Lymph % (Auto) [place] % (Auto) Lymph # [place] # Baso # Seg Neutrophils % Seg Neuts % (Manual) Lymphocytes % (Manual) Monocytes % (Manual) Eosinophils % (Manual) Basophils % (Manual) Nucleated RBC % Seg Neutrophils # Seg Neutrophils # Man Lymphocytes # (Manual) Monocytes # (Manual) Eosinophils # (Manual) Basophils # (Manual) PT INR Fibrinogen dRVVT Confirm Interp Factor V Activity POC ABG pH POC ABG pCO2 POC ABG pO2 ABG pO2 ABG HCO3 ABG Base Excess ABG Hemoglobin Oxyhemoglobin Sodium Potassium Chloride Carbon Dioxide BUN Creatinine Glucose POC Glucose 134 H 138 H 136 H Lactic Acid Calcium Phosphorus Magnesium Direct Bilirubin AST ALT Alkaline Phosphatase Lactate Dehydrogenase Troponin T C-Reactive Protein Total Protein Albumin Prealbumin Triglycerides Cholesterol LDL Cholesterol Direct HDL Cholesterol PTH Intact Urine pH Urine WBC (Auto) Urine Creatinine Urine Total Protein Fluid Total Protein Vancomycin Trough Rheumatoid Factor Complement C4 Miscellaneous Test Crossmatch 11/21/16 11/21/16 11/21/16 07:04 07:45 07:45 WBC 22.0 H RBC 2.91 L Hgb 8.2 L Hct 25.4 L MCV MCH MCHC RDW 17.1 H Plt Count Lymph % (Auto) [place] % (Auto) Lymph # [place] # Baso # Seg Neutrophils % Seg Neuts % (Manual) Lymphocytes % (Manual) 8.0 L Monocytes % (Manual) Eosinophils % (Manual) Basophils % (Manual) Nucleated RBC % Seg Neutrophils # Seg Neutrophils # Man 14.7 H Lymphocytes # (Manual) Monocytes # (Manual) 1.1 H Eosinophils # (Manual) Basophils # (Manual) PT INR Fibrinogen dRVVT Confirm Interp Factor V Activity POC ABG pH POC ABG pCO2 POC ABG pO2 ABG pO2 ABG HCO3 ABG Base Excess ABG Hemoglobin Oxyhemoglobin Sodium Potassium Chloride Carbon Dioxide BUN 42 H Creatinine 2.0 H Glucose POC Glucose 108 H Lactic Acid Calcium Phosphorus Magnesium Direct Bilirubin AST ALT Alkaline Phosphatase Lactate Dehydrogenase Troponin T C-Reactive Protein Total Protein Albumin Prealbumin Triglycerides Cholesterol LDL Cholesterol Direct HDL Cholesterol PTH Intact Urine pH Urine WBC (Auto) Urine Creatinine Urine Total Protein Fluid Total Protein Vancomycin Trough Rheumatoid Factor Complement C4 Miscellaneous Test Crossmatch 11/21/16 11/21/16 11/21/16 08:38 10:09 11:20 WBC RBC Hgb Hct MCV MCH MCHC RDW Plt Count Lymph % (Auto) [place] % (Auto) Lymph # [place] # Baso # Seg Neutrophils % Seg Neuts % (Manual) Lymphocytes % (Manual) Monocytes % (Manual) Eosinophils % (Manual) Basophils % (Manual) Nucleated RBC % Seg Neutrophils # Seg Neutrophils # Man Lymphocytes # (Manual) Monocytes # (Manual) Eosinophils # (Manual) Basophils # (Manual) PT INR Fibrinogen dRVVT Confirm Interp Factor V Activity POC ABG pH 7.346 L POC ABG pCO2 34.4 L POC ABG pO2 314 H ABG pO2 ABG HCO3 ABG Base Excess ABG Hemoglobin Oxyhemoglobin Sodium Potassium Chloride Carbon Dioxide BUN Creatinine Glucose POC Glucose 195 H 153 H Lactic Acid Calcium Phosphorus Magnesium Direct Bilirubin AST ALT Alkaline Phosphatase Lactate Dehydrogenase Troponin T C-Reactive Protein Total Protein Albumin Prealbumin Triglycerides Cholesterol LDL Cholesterol Direct HDL Cholesterol PTH Intact Urine pH Urine WBC (Auto) Urine Creatinine Urine Total Protein Fluid Total Protein Vancomycin Trough Rheumatoid Factor Complement C4 Miscellaneous Test Crossmatch 11/21/16 11/22/16 11/22/16 23:37 04:48 05:00 WBC 29.7 H RBC 2.73 L Hgb 7.5 L Hct 24.2 L MCV MCH 27 L MCHC RDW 17.4 H Plt Count Lymph % (Auto) [place] % (Auto) Lymph # [place] # Baso # Seg Neutrophils % Seg Neuts % (Manual) Lymphocytes % (Manual) 7.0 L Monocytes % (Manual) Eosinophils % (Manual) Basophils % (Manual) Nucleated RBC % Seg Neutrophils # Seg Neutrophils # Man 15.4 H Lymphocytes # (Manual) Monocytes # (Manual) Eosinophils # (Manual) Basophils # (Manual) PT INR Fibrinogen dRVVT Confirm Interp Factor V Activity POC ABG pH POC ABG pCO2 24.6 L POC ABG pO2 189 H ABG pO2 ABG HCO3 ABG Base Excess ABG Hemoglobin Oxyhemoglobin Sodium Potassium Chloride Carbon Dioxide BUN Creatinine Glucose POC Glucose 65 L Lactic Acid Calcium Phosphorus Magnesium Direct Bilirubin AST ALT Alkaline Phosphatase Lactate Dehydrogenase Troponin T C-Reactive Protein Total Protein Albumin Prealbumin Triglycerides Cholesterol LDL Cholesterol Direct HDL Cholesterol PTH Intact Urine pH Urine WBC (Auto) Urine Creatinine Urine Total Protein Fluid Total Protein Vancomycin Trough Rheumatoid Factor Complement C4 Miscellaneous Test Crossmatch 11/22/16 11/23/16 11/23/16 05:00 03:44 04:06 WBC RBC 2.52 L Hgb 7.2 L Hct 21.5 L MCV MCH MCHC RDW 17.1 H Plt Count Lymph % (Auto) [place] % (Auto) 12.4 H Lymph # [place] # 1.4 H Baso # Seg Neutrophils % Seg Neuts % (Manual) Lymphocytes % (Manual) Monocytes % (Manual) Eosinophils % (Manual) Basophils % (Manual) Nucleated RBC % Seg Neutrophils # Seg Neutrophils # Man Lymphocytes # (Manual) Monocytes # (Manual) Eosinophils # (Manual) Basophils # (Manual) PT INR Fibrinogen dRVVT Confirm Interp Factor V Activity POC ABG pH 7.493 H POC ABG pCO2 29.5 L POC ABG pO2 49 L ABG pO2 ABG HCO3 ABG Base Excess ABG Hemoglobin Oxyhemoglobin Sodium 134 L Potassium Chloride 95.9 L Carbon Dioxide 14 L D BUN 51 H Creatinine 2.6 H Glucose POC Glucose Lactic Acid Calcium Phosphorus Magnesium Direct Bilirubin AST ALT Alkaline Phosphatase Lactate Dehydrogenase Troponin T C-Reactive Protein Total Protein Albumin Prealbumin Triglycerides Cholesterol LDL Cholesterol Direct HDL Cholesterol PTH Intact Urine pH Urine WBC (Auto) Urine Creatinine Urine Total Protein Fluid Total Protein Vancomycin Trough Rheumatoid Factor Complement C4 Miscellaneous Test Crossmatch 11/23/16 11/23/16 11/24/16 04:06 11:29 06:39 WBC RBC Hgb Hct MCV MCH MCHC RDW Plt Count Lymph % (Auto) [place] % (Auto) Lymph # [place] # Baso # Seg Neutrophils % Seg Neuts % (Manual) Lymphocytes % (Manual) Monocytes % (Manual) Eosinophils % (Manual) Basophils % (Manual) Nucleated RBC % Seg Neutrophils # Seg Neutrophils # Man Lymphocytes # (Manual) Monocytes # (Manual) Eosinophils # (Manual) Basophils # (Manual) PT INR Fibrinogen dRVVT Confirm Interp Factor V Activity POC ABG pH POC ABG pCO2 POC ABG pO2 ABG pO2 ABG HCO3 ABG Base Excess ABG Hemoglobin Oxyhemoglobin Sodium 136 L Potassium Chloride 95.2 L Carbon Dioxide BUN 60 H Creatinine 2.9 H Glucose POC Glucose 69 L 305 H Lactic Acid Calcium Phosphorus Magnesium 1.60 L Direct Bilirubin AST ALT Alkaline Phosphatase Lactate Dehydrogenase Troponin T C-Reactive Protein Total Protein Albumin Prealbumin Triglycerides Cholesterol LDL Cholesterol Direct HDL Cholesterol PTH Intact Urine pH Urine WBC (Auto) Urine Creatinine Urine Total Protein Fluid Total Protein Vancomycin Trough Rheumatoid Factor Complement C4 Miscellaneous Test Crossmatch 11/24/16 11/24/16 11/24/16 06:43 08:08 08:08 WBC 11.2 H RBC 2.47 L Hgb 6.8 L Hct 20.6 L MCV MCH MCHC RDW 17.0 H Plt Count Lymph % (Auto) [place] % (Auto) 10.3 H Lymph # [place] # 1.2 H Baso # Seg Neutrophils % Seg Neuts % (Manual) Lymphocytes % (Manual) Monocytes % (Manual) Eosinophils % (Manual) Basophils % (Manual) Nucleated RBC % Seg Neutrophils # Seg Neutrophils # Man Lymphocytes # (Manual) Monocytes # (Manual) Eosinophils # (Manual) Basophils # (Manual) PT INR Fibrinogen dRVVT Confirm Interp Factor V Activity POC ABG pH POC ABG pCO2 POC ABG pO2 ABG pO2 ABG HCO3 ABG Base Excess ABG Hemoglobin Oxyhemoglobin Sodium 135 L Potassium Chloride 96.3 L Carbon Dioxide BUN 61 H Creatinine 3.1 H Glucose POC Glucose 62 L Lactic Acid Calcium 8.2 L Phosphorus Magnesium Direct Bilirubin AST ALT Alkaline Phosphatase Lactate Dehydrogenase Troponin T C-Reactive Protein Total Protein Albumin Prealbumin Triglycerides Cholesterol LDL Cholesterol Direct HDL Cholesterol PTH Intact Urine pH Urine WBC (Auto) Urine Creatinine Urine Total Protein Fluid Total Protein Vancomycin Trough Rheumatoid Factor Complement C4 Miscellaneous Test Crossmatch 11/24/16 11/24/16 11/24/16 08:34 11:20 12:41 WBC RBC Hgb Hct MCV MCH MCHC RDW Plt Count Lymph % (Auto) [place] % (Auto) Lymph # [place] # Baso # Seg Neutrophils % Seg Neuts % (Manual) Lymphocytes % (Manual) Monocytes % (Manual) Eosinophils % (Manual) Basophils % (Manual) Nucleated RBC % Seg Neutrophils # Seg Neutrophils # Man Lymphocytes # (Manual) Monocytes # (Manual) Eosinophils # (Manual) Basophils # (Manual) PT INR Fibrinogen dRVVT Confirm Interp Factor V Activity POC ABG pH POC ABG pCO2 POC ABG pO2 ABG pO2 ABG HCO3 ABG Base Excess ABG Hemoglobin Oxyhemoglobin Sodium Potassium Chloride Carbon Dioxide BUN Creatinine Glucose POC Glucose 108 H Lactic Acid Calcium Phosphorus Magnesium 1.60 L Direct Bilirubin AST ALT Alkaline Phosphatase Lactate Dehydrogenase Troponin T C-Reactive Protein Total Protein Albumin Prealbumin Triglycerides Cholesterol LDL Cholesterol Direct HDL Cholesterol PTH Intact Urine pH Urine WBC (Auto) Urine Creatinine Urine Total Protein Fluid Total Protein Vancomycin Trough Rheumatoid Factor Complement C4 Miscellaneous Test Crossmatch See Detail 11/25/16 11/25/16 11/25/16 00:03 04:42 04:42 WBC RBC 3.03 L Hgb 8.6 L Hct 25.3 L MCV MCH MCHC RDW 16.2 H Plt Count Lymph % (Auto) [place] % (Auto) 8.1 H Lymph # [place] # Baso # Seg Neutrophils % 71.3 H Seg Neuts % (Manual) Lymphocytes % (Manual) Monocytes % (Manual) Eosinophils % (Manual) Basophils % (Manual) Nucleated RBC % Seg Neutrophils # Seg Neutrophils # Man Lymphocytes # (Manual) Monocytes # (Manual) Eosinophils # (Manual) Basophils # (Manual) PT INR Fibrinogen dRVVT Confirm Interp Factor V Activity POC ABG pH POC ABG pCO2 POC ABG pO2 ABG pO2 ABG HCO3 ABG Base Excess ABG Hemoglobin Oxyhemoglobin Sodium Potassium Chloride Carbon Dioxide BUN 61 H Creatinine 3.0 H Glucose 102 H POC Glucose 113 H Lactic Acid Calcium 8.2 L Phosphorus Magnesium Direct Bilirubin AST ALT Alkaline Phosphatase 142 H Lactate Dehydrogenase Troponin T C-Reactive Protein Total Protein 5.7 L Albumin 1.5 L Prealbumin Triglycerides Cholesterol LDL Cholesterol Direct HDL Cholesterol PTH Intact Urine pH Urine WBC (Auto) Urine Creatinine Urine Total Protein Fluid Total Protein Vancomycin Trough Rheumatoid Factor Complement C4 Miscellaneous Test Crossmatch 11/25/16 11/25/16 11/25/16 05:12 11:31 14:12 WBC RBC Hgb Hct MCV MCH MCHC RDW Plt Count Lymph % (Auto) [place] % (Auto) Lymph # [place] # Baso # Seg Neutrophils % Seg Neuts % (Manual) Lymphocytes % (Manual) Monocytes % (Manual) Eosinophils % (Manual) Basophils % (Manual) Nucleated RBC % Seg Neutrophils # Seg Neutrophils # Man Lymphocytes # (Manual) Monocytes # (Manual) Eosinophils # (Manual) Basophils # (Manual) PT INR Fibrinogen dRVVT Confirm Interp Factor V Activity POC ABG pH 7.487 H POC ABG pCO2 POC ABG pO2 153 H ABG pO2 ABG HCO3 ABG Base Excess ABG Hemoglobin Oxyhemoglobin Sodium Potassium Chloride Carbon Dioxide BUN Creatinine Glucose POC Glucose 131 H 140 H Lactic Acid Calcium Phosphorus Magnesium Direct Bilirubin AST ALT Alkaline Phosphatase Lactate Dehydrogenase Troponin T C-Reactive Protein Total Protein Albumin Prealbumin Triglycerides Cholesterol LDL Cholesterol Direct HDL Cholesterol PTH Intact Urine pH Urine WBC (Auto) Urine Creatinine Urine Total Protein Fluid Total Protein Vancomycin Trough Rheumatoid Factor Complement C4 Miscellaneous Test Crossmatch 11/25/16 11/26/16 11/26/16 17:23 00:09 05:13 WBC RBC 2.94 L Hgb 8.4 L Hct 24.6 L MCV MCH MCHC RDW 16.4 H Plt Count Lymph % (Auto) [place] % (Auto) 12.3 H Lymph # [place] # 1.1 H Baso # Seg Neutrophils % Seg Neuts % (Manual) Lymphocytes % (Manual) Monocytes % (Manual) Eosinophils % (Manual) Basophils % (Manual) Nucleated RBC % Seg Neutrophils # Seg Neutrophils # Man Lymphocytes # (Manual) Monocytes # (Manual) Eosinophils # (Manual) Basophils # (Manual) PT INR Fibrinogen dRVVT Confirm Interp Factor V Activity POC ABG pH POC ABG pCO2 POC ABG pO2 ABG pO2 ABG HCO3 ABG Base Excess ABG Hemoglobin Oxyhemoglobin Sodium Potassium Chloride Carbon Dioxide BUN Creatinine Glucose POC Glucose 146 H 112 H Lactic Acid Calcium Phosphorus Magnesium Direct Bilirubin AST ALT Alkaline Phosphatase Lactate Dehydrogenase Troponin T C-Reactive Protein Total Protein Albumin Prealbumin Triglycerides Cholesterol LDL Cholesterol Direct HDL Cholesterol PTH Intact Urine pH Urine WBC (Auto) Urine Creatinine Urine Total Protein Fluid Total Protein Vancomycin Trough Rheumatoid Factor Complement C4 Miscellaneous Test Crossmatch 11/26/16 11/26/16 11/26/16 05:13 05:28 11:53 WBC RBC Hgb Hct MCV MCH MCHC RDW Plt Count Lymph % (Auto) [place] % (Auto) Lymph # [place] # Baso # Seg Neutrophils % Seg Neuts % (Manual) Lymphocytes % (Manual) Monocytes % (Manual) Eosinophils % (Manual) Basophils % (Manual) Nucleated RBC % Seg Neutrophils # Seg Neutrophils # Man Lymphocytes # (Manual) Monocytes # (Manual) Eosinophils # (Manual) Basophils # (Manual) PT INR Fibrinogen dRVVT Confirm Interp Factor V Activity POC ABG pH POC ABG pCO2 POC ABG pO2 ABG pO2 ABG HCO3 ABG Base Excess ABG Hemoglobin Oxyhemoglobin Sodium Potassium Chloride 97.8 L Carbon Dioxide BUN 37 H Creatinine 2.0 H Glucose 109 H POC Glucose 117 H 111 H Lactic Acid Calcium 7.9 L Phosphorus 1.80 L D Magnesium Direct Bilirubin AST ALT Alkaline Phosphatase Lactate Dehydrogenase Troponin T C-Reactive Protein Total Protein Albumin Prealbumin Triglycerides Cholesterol LDL Cholesterol Direct HDL Cholesterol PTH Intact Urine pH Urine WBC (Auto) Urine Creatinine Urine Total Protein Fluid Total Protein Vancomycin Trough Rheumatoid Factor Complement C4 Miscellaneous Test Crossmatch 11/26/16 11/27/16 11/27/16 17:14 04:50 06:02 WBC RBC Hgb Hct MCV MCH MCHC RDW Plt Count Lymph % (Auto) [place] % (Auto) Lymph # [place] # Baso # Seg Neutrophils % Seg Neuts % (Manual) Lymphocytes % (Manual) Monocytes % (Manual) Eosinophils % (Manual) Basophils % (Manual) Nucleated RBC % Seg Neutrophils # Seg Neutrophils # Man Lymphocytes # (Manual) Monocytes # (Manual) Eosinophils # (Manual) Basophils # (Manual) PT INR Fibrinogen dRVVT Confirm Interp Factor V Activity POC ABG pH POC ABG pCO2 POC ABG pO2 ABG pO2 75.2 L ABG HCO3 26.4 H ABG Base Excess ABG Hemoglobin 7.6 L Oxyhemoglobin 94.8 L Sodium Potassium Chloride Carbon Dioxide BUN 49 H Creatinine 2.3 H Glucose POC Glucose 115 H Lactic Acid Calcium Phosphorus 1.50 L Magnesium Direct Bilirubin AST ALT Alkaline Phosphatase Lactate Dehydrogenase Troponin T C-Reactive Protein Total Protein Albumin Prealbumin Triglycerides Cholesterol LDL Cholesterol Direct HDL Cholesterol PTH Intact Urine pH Urine WBC (Auto) Urine Creatinine Urine Total Protein Fluid Total Protein Vancomycin Trough Rheumatoid Factor Complement C4 Miscellaneous Test Crossmatch 11/27/16 11/27/16 11/27/16 06:02 11:25 17:25 WBC 11.6 H RBC 2.75 L Hgb 7.6 L Hct 23.4 L MCV MCH MCHC RDW 16.5 H Plt Count Lymph % (Auto) [place] % (Auto) Lymph # [place] # Baso # Seg Neutrophils % Seg Neuts % (Manual) Lymphocytes % (Manual) Monocytes % (Manual) Eosinophils % (Manual) Basophils % (Manual) Nucleated RBC % Seg Neutrophils # Seg Neutrophils # Man Lymphocytes # (Manual) Monocytes # (Manual) Eosinophils # (Manual) Basophils # (Manual) PT INR Fibrinogen dRVVT Confirm Interp Factor V Activity POC ABG pH POC ABG pCO2 POC ABG pO2 ABG pO2 ABG HCO3 ABG Base Excess ABG Hemoglobin Oxyhemoglobin Sodium Potassium Chloride Carbon Dioxide BUN Creatinine Glucose POC Glucose 114 H 126 H Lactic Acid Calcium Phosphorus Magnesium Direct Bilirubin AST ALT Alkaline Phosphatase Lactate Dehydrogenase Troponin T C-Reactive Protein Total Protein Albumin Prealbumin Triglycerides Cholesterol LDL Cholesterol Direct HDL Cholesterol PTH Intact Urine pH Urine WBC (Auto) Urine Creatinine Urine Total Protein Fluid Total Protein Vancomycin Trough Rheumatoid Factor Complement C4 Miscellaneous Test Crossmatch 11/28/16 11/28/16 11/28/16 04:45 05:33 05:44 WBC RBC Hgb Hct MCV MCH MCHC RDW Plt Count Lymph % (Auto) [place] % (Auto) Lymph # [place] # Baso # Seg Neutrophils % Seg Neuts % (Manual) Lymphocytes % (Manual) Monocytes % (Manual) Eosinophils % (Manual) Basophils % (Manual) Nucleated RBC % Seg Neutrophils # Seg Neutrophils # Man Lymphocytes # (Manual) Monocytes # (Manual) Eosinophils # (Manual) Basophils # (Manual) PT INR Fibrinogen dRVVT Confirm Interp Factor V Activity POC ABG pH POC ABG pCO2 POC ABG pO2 ABG pO2 99.3 H ABG HCO3 ABG Base Excess ABG Hemoglobin 8.3 L Oxyhemoglobin Sodium Potassium Chloride Carbon Dioxide BUN 63 H Creatinine 2.4 H Glucose 102 H POC Glucose 108 H Lactic Acid Calcium Phosphorus 1.80 L Magnesium Direct Bilirubin AST ALT Alkaline Phosphatase Lactate Dehydrogenase Troponin T C-Reactive Protein Total Protein Albumin Prealbumin Triglycerides Cholesterol LDL Cholesterol Direct HDL Cholesterol PTH Intact Urine pH Urine WBC (Auto) Urine Creatinine Urine Total Protein Fluid Total Protein Vancomycin Trough Rheumatoid Factor Complement C4 Miscellaneous Test Crossmatch 11/28/16 11/28/16 11/28/16 12:31 16:09 23:46 WBC RBC Hgb Hct MCV MCH MCHC RDW Plt Count Lymph % (Auto) [place] % (Auto) Lymph # [place] # Baso # Seg Neutrophils % Seg Neuts % (Manual) Lymphocytes % (Manual) Monocytes % (Manual) Eosinophils % (Manual) Basophils % (Manual) Nucleated RBC % Seg Neutrophils # Seg Neutrophils # Man Lymphocytes # (Manual) Monocytes # (Manual) Eosinophils # (Manual) Basophils # (Manual) PT INR Fibrinogen dRVVT Confirm Interp Factor V Activity POC ABG pH POC ABG pCO2 POC ABG pO2 ABG pO2 ABG HCO3 ABG Base Excess ABG Hemoglobin Oxyhemoglobin Sodium Potassium Chloride Carbon Dioxide BUN Creatinine Glucose POC Glucose 126 H 111 H 119 H Lactic Acid Calcium Phosphorus Magnesium Direct Bilirubin AST ALT Alkaline Phosphatase Lactate Dehydrogenase Troponin T C-Reactive Protein Total Protein Albumin Prealbumin Triglycerides Cholesterol LDL Cholesterol Direct HDL Cholesterol PTH Intact Urine pH Urine WBC (Auto) Urine Creatinine Urine Total Protein Fluid Total Protein Vancomycin Trough Rheumatoid Factor Complement C4 Miscellaneous Test Crossmatch 11/29/16 11/29/16 11/29/16 03:33 04:52 05:10 WBC RBC Hgb Hct MCV MCH MCHC RDW Plt Count Lymph % (Auto) [place] % (Auto) Lymph # [place] # Baso # Seg Neutrophils % Seg Neuts % (Manual) Lymphocytes % (Manual) Monocytes % (Manual) Eosinophils % (Manual) Basophils % (Manual) Nucleated RBC % Seg Neutrophils # Seg Neutrophils # Man Lymphocytes # (Manual) Monocytes # (Manual) Eosinophils # (Manual) Basophils # (Manual) PT INR Fibrinogen dRVVT Confirm Interp Factor V Activity POC ABG pH POC ABG pCO2 POC ABG pO2 ABG pO2 ABG HCO3 ABG Base Excess ABG Hemoglobin 7.0 L Oxyhemoglobin 94.9 L Sodium Potassium Chloride Carbon Dioxide BUN 73 H Creatinine 2.7 H Glucose POC Glucose 108 H Lactic Acid Calcium Phosphorus Magnesium Direct Bilirubin AST ALT Alkaline Phosphatase Lactate Dehydrogenase Troponin T C-Reactive Protein Total Protein Albumin Prealbumin Triglycerides Cholesterol LDL Cholesterol Direct HDL Cholesterol PTH Intact Urine pH Urine WBC (Auto) Urine Creatinine Urine Total Protein Fluid Total Protein Vancomycin Trough Rheumatoid Factor Complement C4 Miscellaneous Test Crossmatch 11/29/16 11/29/16 11/29/16 12:16 18:05 23:46 WBC RBC Hgb Hct MCV MCH MCHC RDW Plt Count Lymph % (Auto) [place] % (Auto) Lymph # [place] # Baso # Seg Neutrophils % Seg Neuts % (Manual) Lymphocytes % (Manual) Monocytes % (Manual) Eosinophils % (Manual) Basophils % (Manual) Nucleated RBC % Seg Neutrophils # Seg Neutrophils # Man Lymphocytes # (Manual) Monocytes # (Manual) Eosinophils # (Manual) Basophils # (Manual) PT INR Fibrinogen dRVVT Confirm Interp Factor V Activity POC ABG pH POC ABG pCO2 POC ABG pO2 ABG pO2 ABG HCO3 ABG Base Excess ABG Hemoglobin Oxyhemoglobin Sodium Potassium Chloride Carbon Dioxide BUN Creatinine Glucose POC Glucose 133 H 146 H 141 H Lactic Acid Calcium Phosphorus Magnesium Direct Bilirubin AST ALT Alkaline Phosphatase Lactate Dehydrogenase Troponin T C-Reactive Protein Total Protein Albumin Prealbumin Triglycerides Cholesterol LDL Cholesterol Direct HDL Cholesterol PTH Intact Urine pH Urine WBC (Auto) Urine Creatinine Urine Total Protein Fluid Total Protein Vancomycin Trough Rheumatoid Factor Complement C4 Miscellaneous Test Crossmatch 11/30/16 11/30/16 11/30/16 04:17 04:17 04:32 WBC 12.0 H RBC 2.80 L Hgb 7.8 L Hct 23.6 L MCV MCH MCHC RDW 16.6 H Plt Count Lymph % (Auto) [place] % (Auto) 11.3 H Lymph # [place] # 1.4 H Baso # Seg Neutrophils % Seg Neuts % (Manual) Lymphocytes % (Manual) Monocytes % (Manual) Eosinophils % (Manual) Basophils % (Manual) Nucleated RBC % Seg Neutrophils # 8.2 H Seg Neutrophils # Man Lymphocytes # (Manual) Monocytes # (Manual) Eosinophils # (Manual) Basophils # (Manual) PT INR Fibrinogen dRVVT Confirm Interp Factor V Activity POC ABG pH POC ABG pCO2 POC ABG pO2 ABG pO2 ABG HCO3 ABG Base Excess ABG Hemoglobin Oxyhemoglobin Sodium 169 H* D Potassium 5.1 H Chloride 121.5 H Carbon Dioxide BUN 34 H Creatinine 1.3 H D Glucose 133 H POC Glucose 131 H Lactic Acid Calcium 10.3 H Phosphorus Magnesium Direct Bilirubin AST ALT Alkaline Phosphatase Lactate Dehydrogenase Troponin T C-Reactive Protein Total Protein Albumin Prealbumin Triglycerides Cholesterol LDL Cholesterol Direct HDL Cholesterol PTH Intact Urine pH Urine WBC (Auto) Urine Creatinine Urine Total Protein Fluid Total Protein Vancomycin Trough Rheumatoid Factor Complement C4 Miscellaneous Test Crossmatch 11/30/16 11/30/16 11/30/16 05:45 11:10 17:26 WBC RBC Hgb Hct MCV MCH MCHC RDW Plt Count Lymph % (Auto) [place] % (Auto) Lymph # [place] # Baso # Seg Neutrophils % Seg Neuts % (Manual) Lymphocytes % (Manual) Monocytes % (Manual) Eosinophils % (Manual) Basophils % (Manual) Nucleated RBC % Seg Neutrophils # Seg Neutrophils # Man Lymphocytes # (Manual) Monocytes # (Manual) Eosinophils # (Manual) Basophils # (Manual) PT INR Fibrinogen dRVVT Confirm Interp Factor V Activity POC ABG pH POC ABG pCO2 POC ABG pO2 ABG pO2 ABG HCO3 ABG Base Excess ABG Hemoglobin Oxyhemoglobin Sodium Potassium Chloride Carbon Dioxide BUN 45 H Creatinine 1.6 H Glucose 131 H POC Glucose 146 H 134 H Lactic Acid Calcium Phosphorus Magnesium Direct Bilirubin AST ALT Alkaline Phosphatase Lactate Dehydrogenase Troponin T C-Reactive Protein Total Protein Albumin Prealbumin Triglycerides Cholesterol LDL Cholesterol Direct HDL Cholesterol PTH Intact Urine pH Urine WBC (Auto) Urine Creatinine Urine Total Protein Fluid Total Protein Vancomycin Trough Rheumatoid Factor Complement C4 Miscellaneous Test Crossmatch 11/30/16 12/01/16 12/01/16 23:35 00:06 03:35 WBC RBC Hgb Hct MCV MCH MCHC RDW Plt Count Lymph % (Auto) [place] % (Auto) Lymph # [place] # Baso # Seg Neutrophils % Seg Neuts % (Manual) Lymphocytes % (Manual) Monocytes % (Manual) Eosinophils % (Manual) Basophils % (Manual) Nucleated RBC % Seg Neutrophils # Seg Neutrophils # Man Lymphocytes # (Manual) Monocytes # (Manual) Eosinophils # (Manual) Basophils # (Manual) PT INR Fibrinogen dRVVT Confirm Interp Factor V Activity POC ABG pH POC ABG pCO2 POC ABG pO2 ABG pO2 ABG HCO3 ABG Base Excess ABG Hemoglobin 6.9 L Oxyhemoglobin Sodium Potassium Chloride Carbon Dioxide BUN 58 H Creatinine 1.8 H Glucose 146 H POC Glucose 151 H Lactic Acid Calcium Phosphorus Magnesium Direct Bilirubin AST ALT Alkaline Phosphatase Lactate Dehydrogenase Troponin T C-Reactive Protein Total Protein Albumin Prealbumin Triglycerides Cholesterol LDL Cholesterol Direct HDL Cholesterol PTH Intact Urine pH Urine WBC (Auto) Urine Creatinine Urine Total Protein Fluid Total Protein Vancomycin Trough Rheumatoid Factor Complement C4 Miscellaneous Test Crossmatch 12/01/16 12/01/16 12/01/16 03:35 05:47 11:52 WBC 12.3 H RBC 2.82 L Hgb 7.8 L Hct 23.7 L MCV MCH MCHC RDW 16.7 H Plt Count Lymph % (Auto) [place] % (Auto) 9.8 H Lymph # [place] # 1.2 H Baso # Seg Neutrophils % Seg Neuts % (Manual) Lymphocytes % (Manual) Monocytes % (Manual) Eosinophils % (Manual) Basophils % (Manual) Nucleated RBC % Seg Neutrophils # 8.4 H Seg Neutrophils # Man Lymphocytes # (Manual) Monocytes # (Manual) Eosinophils # (Manual) Basophils # (Manual) PT INR Fibrinogen dRVVT Confirm Interp Factor V Activity POC ABG pH POC ABG pCO2 POC ABG pO2 ABG pO2 ABG HCO3 ABG Base Excess ABG Hemoglobin Oxyhemoglobin Sodium Potassium Chloride Carbon Dioxide BUN Creatinine Glucose POC Glucose 152 H 152 H Lactic Acid Calcium Phosphorus Magnesium Direct Bilirubin AST ALT Alkaline Phosphatase Lactate Dehydrogenase Troponin T C-Reactive Protein Total Protein Albumin Prealbumin Triglycerides Cholesterol LDL Cholesterol Direct HDL Cholesterol PTH Intact Urine pH Urine WBC (Auto) Urine Creatinine Urine Total Protein Fluid Total Protein Vancomycin Trough Rheumatoid Factor Complement C4 Miscellaneous Test Crossmatch 12/01/16 12/01/16 12/02/16 17:40 23:41 05:00 WBC RBC Hgb Hct MCV MCH MCHC RDW Plt Count Lymph % (Auto) [place] % (Auto) Lymph # [place] # Baso # Seg Neutrophils % Seg Neuts % (Manual) Lymphocytes % (Manual) Monocytes % (Manual) Eosinophils % (Manual) Basophils % (Manual) Nucleated RBC % Seg Neutrophils # Seg Neutrophils # Man Lymphocytes # (Manual) Monocytes # (Manual) Eosinophils # (Manual) Basophils # (Manual) PT INR Fibrinogen dRVVT Confirm Interp Factor V Activity POC ABG pH POC ABG pCO2 POC ABG pO2 ABG pO2 ABG HCO3 ABG Base Excess ABG Hemoglobin Oxyhemoglobin Sodium Potassium Chloride Carbon Dioxide BUN 45 H Creatinine Glucose 115 H POC Glucose 140 H 144 H Lactic Acid Calcium Phosphorus Magnesium Direct Bilirubin AST ALT Alkaline Phosphatase Lactate Dehydrogenase Troponin T C-Reactive Protein Total Protein Albumin Prealbumin Triglycerides Cholesterol LDL Cholesterol Direct HDL Cholesterol PTH Intact Urine pH Urine WBC (Auto) Urine Creatinine Urine Total Protein Fluid Total Protein Vancomycin Trough Rheumatoid Factor Complement C4 Miscellaneous Test Crossmatch 12/02/16 12/02/16 12/02/16 05:31 11:20 17:38 WBC RBC Hgb Hct MCV MCH MCHC RDW Plt Count Lymph % (Auto) [place] % (Auto) Lymph # [place] # Baso # Seg Neutrophils % Seg Neuts % (Manual) Lymphocytes % (Manual) Monocytes % (Manual) Eosinophils % (Manual) Basophils % (Manual) Nucleated RBC % Seg Neutrophils # Seg Neutrophils # Man Lymphocytes # (Manual) Monocytes # (Manual) Eosinophils # (Manual) Basophils # (Manual) PT INR Fibrinogen dRVVT Confirm Interp Factor V Activity POC ABG pH POC ABG pCO2 POC ABG pO2 ABG pO2 ABG HCO3 ABG Base Excess ABG Hemoglobin Oxyhemoglobin Sodium Potassium Chloride Carbon Dioxide BUN Creatinine Glucose POC Glucose 136 H 177 H 139 H Lactic Acid Calcium Phosphorus Magnesium Direct Bilirubin AST ALT Alkaline Phosphatase Lactate Dehydrogenase Troponin T C-Reactive Protein Total Protein Albumin Prealbumin Triglycerides Cholesterol LDL Cholesterol Direct HDL Cholesterol PTH Intact Urine pH Urine WBC (Auto) Urine Creatinine Urine Total Protein Fluid Total Protein Vancomycin Trough Rheumatoid Factor Complement C4 Miscellaneous Test Crossmatch 12/02/16 12/03/16 12/03/16 23:43 04:00 04:00 WBC 20.4 H RBC 2.74 L Hgb 7.4 L Hct 23.6 L MCV MCH 27 L MCHC RDW 17.1 H Plt Count Lymph % (Auto) [place] % (Auto) Lymph # [place] # Baso # Seg Neutrophils % Seg Neuts % (Manual) 31.0 L Lymphocytes % (Manual) Monocytes % (Manual) Eosinophils % (Manual) Basophils % (Manual) Nucleated RBC % Seg Neutrophils # Seg Neutrophils # Man Lymphocytes # (Manual) Monocytes # (Manual) Eosinophils # (Manual) Basophils # (Manual) PT INR Fibrinogen dRVVT Confirm Interp Factor V Activity POC ABG pH POC ABG pCO2 POC ABG pO2 ABG pO2 ABG HCO3 ABG Base Excess ABG Hemoglobin Oxyhemoglobin Sodium Potassium Chloride Carbon Dioxide BUN 61 H Creatinine 1.6 H Glucose 119 H POC Glucose 158 H Lactic Acid Calcium Phosphorus Magnesium Direct Bilirubin AST ALT Alkaline Phosphatase Lactate Dehydrogenase Troponin T C-Reactive Protein Total Protein Albumin Prealbumin Triglycerides Cholesterol LDL Cholesterol Direct HDL Cholesterol PTH Intact Urine pH Urine WBC (Auto) Urine Creatinine Urine Total Protein Fluid Total Protein Vancomycin Trough Rheumatoid Factor Complement C4 Miscellaneous Test Crossmatch 12/03/16 12/03/16 12/03/16 05:02 12:11 18:16 WBC RBC Hgb Hct MCV MCH MCHC RDW Plt Count Lymph % (Auto) [place] % (Auto) Lymph # [place] # Baso # Seg Neutrophils % Seg Neuts % (Manual) Lymphocytes % (Manual) Monocytes % (Manual) Eosinophils % (Manual) Basophils % (Manual) Nucleated RBC % Seg Neutrophils # Seg Neutrophils # Man Lymphocytes # (Manual) Monocytes # (Manual) Eosinophils # (Manual) Basophils # (Manual) PT INR Fibrinogen dRVVT Confirm Interp Factor V Activity POC ABG pH POC ABG pCO2 POC ABG pO2 ABG pO2 ABG HCO3 ABG Base Excess ABG Hemoglobin Oxyhemoglobin Sodium Potassium Chloride Carbon Dioxide BUN Creatinine Glucose POC Glucose 146 H 157 H 124 H Lactic Acid Calcium Phosphorus Magnesium Direct Bilirubin AST ALT Alkaline Phosphatase Lactate Dehydrogenase Troponin T C-Reactive Protein Total Protein Albumin Prealbumin Triglycerides Cholesterol LDL Cholesterol Direct HDL Cholesterol PTH Intact Urine pH Urine WBC (Auto) Urine Creatinine Urine Total Protein Fluid Total Protein Vancomycin Trough Rheumatoid Factor Complement C4 Miscellaneous Test Crossmatch 12/03/16 12/04/16 12/04/16 23:41 04:00 04:45 WBC RBC Hgb Hct MCV MCH MCHC RDW Plt Count Lymph % (Auto) [place] % (Auto) Lymph # [place] # Baso # Seg Neutrophils % Seg Neuts % (Manual) Lymphocytes % (Manual) Monocytes % (Manual) Eosinophils % (Manual) Basophils % (Manual) Nucleated RBC % Seg Neutrophils # Seg Neutrophils # Man Lymphocytes # (Manual) Monocytes # (Manual) Eosinophils # (Manual) Basophils # (Manual) PT INR Fibrinogen dRVVT Confirm Interp Factor V Activity POC ABG pH POC ABG pCO2 POC ABG pO2 ABG pO2 ABG HCO3 ABG Base Excess ABG Hemoglobin Oxyhemoglobin Sodium Potassium Chloride Carbon Dioxide BUN 76 H Creatinine 1.6 H Glucose POC Glucose 130 H 136 H Lactic Acid Calcium Phosphorus Magnesium Direct Bilirubin AST ALT Alkaline Phosphatase 155 H Lactate Dehydrogenase Troponin T C-Reactive Protein Total Protein 5.5 L Albumin 1.5 L Prealbumin Triglycerides Cholesterol LDL Cholesterol Direct HDL Cholesterol PTH Intact Urine pH Urine WBC (Auto) Urine Creatinine Urine Total Protein Fluid Total Protein Vancomycin Trough Rheumatoid Factor Complement C4 Miscellaneous Test Crossmatch 12/04/16 12/04/16 12/05/16 12:08 17:23 00:10 WBC RBC Hgb Hct MCV MCH MCHC RDW Plt Count Lymph % (Auto) [place] % (Auto) Lymph # [place] # Baso # Seg Neutrophils % Seg Neuts % (Manual) Lymphocytes % (Manual) Monocytes % (Manual) Eosinophils % (Manual) Basophils % (Manual) Nucleated RBC % Seg Neutrophils # Seg Neutrophils # Man Lymphocytes # (Manual) Monocytes # (Manual) Eosinophils # (Manual) Basophils # (Manual) PT INR Fibrinogen dRVVT Confirm Interp Factor V Activity POC ABG pH POC ABG pCO2 POC ABG pO2 ABG pO2 ABG HCO3 ABG Base Excess ABG Hemoglobin Oxyhemoglobin Sodium Potassium Chloride Carbon Dioxide BUN Creatinine Glucose POC Glucose 114 H 129 H 124 H Lactic Acid Calcium Phosphorus Magnesium Direct Bilirubin AST ALT Alkaline Phosphatase Lactate Dehydrogenase Troponin T C-Reactive Protein Total Protein Albumin Prealbumin Triglycerides Cholesterol LDL Cholesterol Direct HDL Cholesterol PTH Intact Urine pH Urine WBC (Auto) Urine Creatinine Urine Total Protein Fluid Total Protein Vancomycin Trough Rheumatoid Factor Complement C4 Miscellaneous Test Crossmatch 12/05/16 12/05/16 12/05/16 05:00 05:00 05:18 WBC RBC Hgb Hct MCV MCH MCHC RDW Plt Count Lymph % (Auto) [place] % (Auto) Lymph # [place] # Baso # Seg Neutrophils % Seg Neuts % (Manual) Lymphocytes % (Manual) Monocytes % (Manual) Eosinophils % (Manual) Basophils % (Manual) Nucleated RBC % Seg Neutrophils # Seg Neutrophils # Man Lymphocytes # (Manual) Monocytes # (Manual) Eosinophils # (Manual) Basophils # (Manual) PT INR Fibrinogen dRVVT Confirm Interp Factor V Activity POC ABG pH POC ABG pCO2 POC ABG pO2 ABG pO2 ABG HCO3 ABG Base Excess ABG Hemoglobin Oxyhemoglobin Sodium Potassium Chloride Carbon Dioxide 21 L BUN 85 H Creatinine 1.9 H Glucose 131 H POC Glucose 154 H Lactic Acid Calcium Phosphorus Magnesium Direct Bilirubin AST ALT Alkaline Phosphatase Lactate Dehydrogenase Troponin T C-Reactive Protein 19.30 H Total Protein Albumin Prealbumin Triglycerides Cholesterol LDL Cholesterol Direct HDL Cholesterol PTH Intact Urine pH Urine WBC (Auto) Urine Creatinine Urine Total Protein Fluid Total Protein Vancomycin Trough Rheumatoid Factor Complement C4 Miscellaneous Test Crossmatch 12/05/16 12/05/16 12/05/16 11:43 17:46 23:25 WBC RBC Hgb Hct MCV MCH MCHC RDW Plt Count Lymph % (Auto) [place] % (Auto) Lymph # [place] # Baso # Seg Neutrophils % Seg Neuts % (Manual) Lymphocytes % (Manual) Monocytes % (Manual) Eosinophils % (Manual) Basophils % (Manual) Nucleated RBC % Seg Neutrophils # Seg Neutrophils # Man Lymphocytes # (Manual) Monocytes # (Manual) Eosinophils # (Manual) Basophils # (Manual) PT INR Fibrinogen dRVVT Confirm Interp Factor V Activity POC ABG pH POC ABG pCO2 POC ABG pO2 ABG pO2 ABG HCO3 ABG Base Excess ABG Hemoglobin Oxyhemoglobin Sodium Potassium Chloride Carbon Dioxide BUN Creatinine Glucose POC Glucose 117 H 113 H 111 H Lactic Acid Calcium Phosphorus Magnesium Direct Bilirubin AST ALT Alkaline Phosphatase Lactate Dehydrogenase Troponin T C-Reactive Protein Total Protein Albumin Prealbumin Triglycerides Cholesterol LDL Cholesterol Direct HDL Cholesterol PTH Intact Urine pH Urine WBC (Auto) Urine Creatinine Urine Total Protein Fluid Total Protein Vancomycin Trough Rheumatoid Factor Complement C4 Miscellaneous Test Crossmatch 12/05/16 12/06/16 12/06/16 Unknown 04:58 06:00 WBC RBC Hgb Hct MCV MCH MCHC RDW Plt Count Lymph % (Auto) [place] % (Auto) Lymph # [place] # Baso # Seg Neutrophils % Seg Neuts % (Manual) Lymphocytes % (Manual) Monocytes % (Manual) Eosinophils % (Manual) Basophils % (Manual) Nucleated RBC % Seg Neutrophils # Seg Neutrophils # Man Lymphocytes # (Manual) Monocytes # (Manual) Eosinophils # (Manual) Basophils # (Manual) PT INR Fibrinogen dRVVT Confirm Interp Factor V Activity POC ABG pH POC ABG pCO2 POC ABG pO2 ABG pO2 75.2 L ABG HCO3 ABG Base Excess -3.4 L ABG Hemoglobin 7.4 L Oxyhemoglobin 94.5 L Sodium Potassium Chloride Carbon Dioxide 20 L BUN 99 H Creatinine 2.1 H Glucose 126 H POC Glucose 145 H Lactic Acid Calcium Phosphorus 4.80 H Magnesium Direct Bilirubin AST ALT Alkaline Phosphatase Lactate Dehydrogenase Troponin T C-Reactive Protein Total Protein Albumin Prealbumin Triglycerides Cholesterol LDL Cholesterol Direct HDL Cholesterol PTH Intact Urine pH Urine WBC (Auto) Urine Creatinine Urine Total Protein Fluid Total Protein Vancomycin Trough Rheumatoid Factor Complement C4 Miscellaneous Test Crossmatch 12/06/16 12/06/16 12/06/16 06:46 11:54 17:55 WBC RBC Hgb 8.3 L Hct 26.4 L MCV MCH MCHC RDW Plt Count Lymph % (Auto) [place] % (Auto) Lymph # [place] # Baso # Seg Neutrophils % Seg Neuts % (Manual) Lymphocytes % (Manual) Monocytes % (Manual) Eosinophils % (Manual) Basophils % (Manual) Nucleated RBC % Seg Neutrophils # Seg Neutrophils # Man Lymphocytes # (Manual) Monocytes # (Manual) Eosinophils # (Manual) Basophils # (Manual) PT INR Fibrinogen dRVVT Confirm Interp Factor V Activity POC ABG pH POC ABG pCO2 POC ABG pO2 ABG pO2 ABG HCO3 ABG Base Excess ABG Hemoglobin Oxyhemoglobin Sodium Potassium Chloride Carbon Dioxide BUN Creatinine Glucose POC Glucose 126 H 157 H Lactic Acid Calcium Phosphorus Magnesium Direct Bilirubin AST ALT Alkaline Phosphatase Lactate Dehydrogenase Troponin T C-Reactive Protein Total Protein Albumin Prealbumin Triglycerides Cholesterol LDL Cholesterol Direct HDL Cholesterol PTH Intact Urine pH Urine WBC (Auto) Urine Creatinine Urine Total Protein Fluid Total Protein Vancomycin Trough Rheumatoid Factor Complement C4 Miscellaneous Test Crossmatch 12/06/16 12/07/16 12/07/16 23:59 05:34 06:30 WBC RBC Hgb Hct MCV MCH MCHC RDW Plt Count Lymph % (Auto) [place] % (Auto) Lymph # [place] # Baso # Seg Neutrophils % Seg Neuts % (Manual) Lymphocytes % (Manual) Monocytes % (Manual) Eosinophils % (Manual) Basophils % (Manual) Nucleated RBC % Seg Neutrophils # Seg Neutrophils # Man Lymphocytes # (Manual) Monocytes # (Manual) Eosinophils # (Manual) Basophils # (Manual) PT INR Fibrinogen dRVVT Confirm Interp Factor V Activity POC ABG pH POC ABG pCO2 POC ABG pO2 ABG pO2 ABG HCO3 ABG Base Excess ABG Hemoglobin Oxyhemoglobin Sodium Potassium Chloride Carbon Dioxide BUN 67 H Creatinine 1.4 H Glucose 126 H POC Glucose 129 H 129 H Lactic Acid Calcium Phosphorus Magnesium Direct Bilirubin AST ALT Alkaline Phosphatase Lactate Dehydrogenase Troponin T C-Reactive Protein Total Protein Albumin Prealbumin Triglycerides Cholesterol LDL Cholesterol Direct HDL Cholesterol PTH Intact Urine pH Urine WBC (Auto) Urine Creatinine Urine Total Protein Fluid Total Protein Vancomycin Trough Rheumatoid Factor Complement C4 Miscellaneous Test Crossmatch 12/07/16 12/07/16 12/07/16 06:30 08:00 09:45 WBC 18.8 H RBC 2.52 L Hgb 6.9 L 6.8 L Hct 21.2 L 21.1 L MCV MCH 27 L MCHC RDW 18.0 H Plt Count Lymph % (Auto) [place] % (Auto) 9.9 H Lymph # [place] # 1.9 H Baso # Seg Neutrophils % 71.8 H Seg Neuts % (Manual) Lymphocytes % (Manual) Monocytes % (Manual) Eosinophils % (Manual) Basophils % (Manual) Nucleated RBC % Seg Neutrophils # 13.5 H Seg Neutrophils # Man Lymphocytes # (Manual) Monocytes # (Manual) Eosinophils # (Manual) Basophils # (Manual) PT INR Fibrinogen dRVVT Confirm Interp Factor V Activity POC ABG pH POC ABG pCO2 POC ABG pO2 ABG pO2 ABG HCO3 ABG Base Excess ABG Hemoglobin Oxyhemoglobin Sodium Potassium Chloride Carbon Dioxide BUN Creatinine Glucose POC Glucose Lactic Acid Calcium Phosphorus Magnesium Direct Bilirubin AST ALT Alkaline Phosphatase Lactate Dehydrogenase Troponin T C-Reactive Protein Total Protein Albumin Prealbumin Triglycerides Cholesterol LDL Cholesterol Direct HDL Cholesterol PTH Intact Urine pH Urine WBC (Auto) Urine Creatinine Urine Total Protein Fluid Total Protein Vancomycin Trough Rheumatoid Factor Complement C4 Miscellaneous Test Crossmatch See Detail 12/07/16 12/07/16 12/07/16 11:44 18:19 23:59 WBC RBC Hgb Hct MCV MCH MCHC RDW Plt Count Lymph % (Auto) [place] % (Auto) Lymph # [place] # Baso # Seg Neutrophils % Seg Neuts % (Manual) Lymphocytes % (Manual) Monocytes % (Manual) Eosinophils % (Manual) Basophils % (Manual) Nucleated RBC % Seg Neutrophils # Seg Neutrophils # Man Lymphocytes # (Manual) Monocytes # (Manual) Eosinophils # (Manual) Basophils # (Manual) PT INR Fibrinogen dRVVT Confirm Interp Factor V Activity POC ABG pH POC ABG pCO2 POC ABG pO2 ABG pO2 ABG HCO3 ABG Base Excess ABG Hemoglobin Oxyhemoglobin Sodium Potassium Chloride Carbon Dioxide BUN Creatinine Glucose POC Glucose 137 H 138 H 133 H Lactic Acid Calcium Phosphorus Magnesium Direct Bilirubin AST ALT Alkaline Phosphatase Lactate Dehydrogenase Troponin T C-Reactive Protein Total Protein Albumin Prealbumin Triglycerides Cholesterol LDL Cholesterol Direct HDL Cholesterol PTH Intact Urine pH Urine WBC (Auto) Urine Creatinine Urine Total Protein Fluid Total Protein Vancomycin Trough Rheumatoid Factor Complement C4 Miscellaneous Test Crossmatch 12/08/16 12/08/16 12/08/16 05:25 05:30 05:30 WBC 23.8 H RBC 2.88 L Hgb 8.1 L Hct 24.3 L MCV MCH MCHC RDW 16.7 H Plt Count Lymph % (Auto) [place] % (Auto) Lymph # [place] # Baso # Seg Neutrophils % Seg Neuts % (Manual) 76.0 H Lymphocytes % (Manual) 9.0 L Monocytes % (Manual) 9.0 H Eosinophils % (Manual) Basophils % (Manual) Nucleated RBC % Seg Neutrophils # Seg Neutrophils # Man 18.1 H Lymphocytes # (Manual) Monocytes # (Manual) 2.1 H Eosinophils # (Manual) Basophils # (Manual) PT INR Fibrinogen dRVVT Confirm Interp Factor V Activity POC ABG pH POC ABG pCO2 POC ABG pO2 ABG pO2 ABG HCO3 ABG Base Excess ABG Hemoglobin Oxyhemoglobin Sodium Potassium Chloride Carbon Dioxide 21 L BUN 76 H Creatinine 1.6 H Glucose 133 H POC Glucose 177 H Lactic Acid Calcium Phosphorus Magnesium Direct Bilirubin AST ALT Alkaline Phosphatase Lactate Dehydrogenase Troponin T C-Reactive Protein Total Protein Albumin Prealbumin Triglycerides Cholesterol LDL Cholesterol Direct HDL Cholesterol PTH Intact Urine pH Urine WBC (Auto) Urine Creatinine Urine Total Protein Fluid Total Protein Vancomycin Trough Rheumatoid Factor Complement C4 Miscellaneous Test Crossmatch 12/08/16 12/08/16 12/09/16 11:45 18:00 00:00 WBC RBC Hgb Hct MCV MCH MCHC RDW Plt Count Lymph % (Auto) [place] % (Auto) Lymph # [place] # Baso # Seg Neutrophils % Seg Neuts % (Manual) Lymphocytes % (Manual) Monocytes % (Manual) Eosinophils % (Manual) Basophils % (Manual) Nucleated RBC % Seg Neutrophils # Seg Neutrophils # Man Lymphocytes # (Manual) Monocytes # (Manual) Eosinophils # (Manual) Basophils # (Manual) PT INR Fibrinogen dRVVT Confirm Interp Factor V Activity POC ABG pH POC ABG pCO2 POC ABG pO2 ABG pO2 ABG HCO3 ABG Base Excess ABG Hemoglobin Oxyhemoglobin Sodium Potassium Chloride Carbon Dioxide BUN Creatinine Glucose POC Glucose 163 H 123 H 137 H Lactic Acid Calcium Phosphorus Magnesium Direct Bilirubin AST ALT Alkaline Phosphatase Lactate Dehydrogenase Troponin T C-Reactive Protein Total Protein Albumin Prealbumin Triglycerides Cholesterol LDL Cholesterol Direct HDL Cholesterol PTH Intact Urine pH Urine WBC (Auto) Urine Creatinine Urine Total Protein Fluid Total Protein Vancomycin Trough Rheumatoid Factor Complement C4 Miscellaneous Test Crossmatch 12/09/16 12/09/16 12/09/16 05:34 06:00 06:00 WBC 15.5 H RBC 2.87 L Hgb 8.0 L Hct 24.2 L MCV MCH MCHC RDW 17.2 H Plt Count Lymph % (Auto) [place] % (Auto) 11.6 H Lymph # [place] # 1.8 H Baso # Seg Neutrophils % 70.8 H Seg Neuts % (Manual) Lymphocytes % (Manual) Monocytes % (Manual) Eosinophils % (Manual) Basophils % (Manual) Nucleated RBC % Seg Neutrophils # 11.0 H Seg Neutrophils # Man Lymphocytes # (Manual) Monocytes # (Manual) Eosinophils # (Manual) Basophils # (Manual) PT INR Fibrinogen dRVVT Confirm Interp Factor V Activity POC ABG pH POC ABG pCO2 POC ABG pO2 ABG pO2 ABG HCO3 ABG Base Excess ABG Hemoglobin Oxyhemoglobin Sodium Potassium Chloride Carbon Dioxide BUN 51 H Creatinine Glucose 117 H POC Glucose 136 H Lactic Acid Calcium Phosphorus Magnesium Direct Bilirubin AST ALT Alkaline Phosphatase Lactate Dehydrogenase Troponin T C-Reactive Protein Total Protein Albumin Prealbumin Triglycerides Cholesterol LDL Cholesterol Direct HDL Cholesterol PTH Intact Urine pH Urine WBC (Auto) Urine Creatinine Urine Total Protein Fluid Total Protein Vancomycin Trough Rheumatoid Factor Complement C4 Miscellaneous Test Crossmatch 12/09/16 12/09/16 12/09/16 12:29 17:52 23:10 WBC RBC Hgb Hct MCV MCH MCHC RDW Plt Count Lymph % (Auto) [place] % (Auto) Lymph # [place] # Baso # Seg Neutrophils % Seg Neuts % (Manual) Lymphocytes % (Manual) Monocytes % (Manual) Eosinophils % (Manual) Basophils % (Manual) Nucleated RBC % Seg Neutrophils # Seg Neutrophils # Man Lymphocytes # (Manual) Monocytes # (Manual) Eosinophils # (Manual) Basophils # (Manual) PT INR Fibrinogen dRVVT Confirm Interp Factor V Activity POC ABG pH POC ABG pCO2 POC ABG pO2 ABG pO2 ABG HCO3 ABG Base Excess ABG Hemoglobin Oxyhemoglobin Sodium Potassium Chloride Carbon Dioxide BUN Creatinine Glucose POC Glucose 139 H 140 H 129 H Lactic Acid Calcium Phosphorus Magnesium Direct Bilirubin AST ALT Alkaline Phosphatase Lactate Dehydrogenase Troponin T C-Reactive Protein Total Protein Albumin Prealbumin Triglycerides Cholesterol LDL Cholesterol Direct HDL Cholesterol PTH Intact Urine pH Urine WBC (Auto) Urine Creatinine Urine Total Protein Fluid Total Protein Vancomycin Trough Rheumatoid Factor Complement C4 Miscellaneous Test Crossmatch 12/10/16 12/10/16 12/10/16 05:00 05:00 06:54 WBC 15.7 H RBC 2.87 L Hgb 8.2 L Hct 24.4 L MCV MCH MCHC RDW 17.2 H Plt Count Lymph % (Auto) [place] % (Auto) 8.3 H Lymph # [place] # 1.3 H Baso # Seg Neutrophils % 72.8 H Seg Neuts % (Manual) Lymphocytes % (Manual) Monocytes % (Manual) Eosinophils % (Manual) Basophils % (Manual) Nucleated RBC % Seg Neutrophils # 11.4 H Seg Neutrophils # Man Lymphocytes # (Manual) Monocytes # (Manual) Eosinophils # (Manual) Basophils # (Manual) PT INR Fibrinogen dRVVT Confirm Interp Factor V Activity POC ABG pH POC ABG pCO2 POC ABG pO2 ABG pO2 ABG HCO3 ABG Base Excess ABG Hemoglobin Oxyhemoglobin Sodium Potassium Chloride Carbon Dioxide BUN 64 H Creatinine 1.4 H Glucose 134 H POC Glucose 154 H Lactic Acid Calcium Phosphorus Magnesium Direct Bilirubin AST ALT Alkaline Phosphatase Lactate Dehydrogenase Troponin T C-Reactive Protein Total Protein Albumin Prealbumin Triglycerides Cholesterol LDL Cholesterol Direct HDL Cholesterol PTH Intact Urine pH Urine WBC (Auto) Urine Creatinine Urine Total Protein Fluid Total Protein Vancomycin Trough Rheumatoid Factor Complement C4 Miscellaneous Test Crossmatch 12/10/16 12/10/16 12/10/16 11:58 17:29 23:52 WBC RBC Hgb Hct MCV MCH MCHC RDW Plt Count Lymph % (Auto) [place] % (Auto) Lymph # [place] # Baso # Seg Neutrophils % Seg Neuts % (Manual) Lymphocytes % (Manual) Monocytes % (Manual) Eosinophils % (Manual) Basophils % (Manual) Nucleated RBC % Seg Neutrophils # Seg Neutrophils # Man Lymphocytes # (Manual) Monocytes # (Manual) Eosinophils # (Manual) Basophils # (Manual) PT INR Fibrinogen dRVVT Confirm Interp Factor V Activity POC ABG pH POC ABG pCO2 POC ABG pO2 ABG pO2 ABG HCO3 ABG Base Excess ABG Hemoglobin Oxyhemoglobin Sodium Potassium Chloride Carbon Dioxide BUN Creatinine Glucose POC Glucose 144 H 163 H 125 H Lactic Acid Calcium Phosphorus Magnesium Direct Bilirubin AST ALT Alkaline Phosphatase Lactate Dehydrogenase Troponin T C-Reactive Protein Total Protein Albumin Prealbumin Triglycerides Cholesterol LDL Cholesterol Direct HDL Cholesterol PTH Intact Urine pH Urine WBC (Auto) Urine Creatinine Urine Total Protein Fluid Total Protein Vancomycin Trough Rheumatoid Factor Complement C4 Miscellaneous Test Crossmatch 12/11/16 12/11/16 12/11/16 05:38 06:30 06:30 WBC 14.4 H RBC 2.76 L Hgb 7.7 L Hct 23.4 L MCV MCH MCHC RDW 17.2 H Plt Count Lymph % (Auto) [place] % (Auto) 8.8 H Lymph # [place] # 1.3 H Baso # Seg Neutrophils % 72.5 H Seg Neuts % (Manual) Lymphocytes % (Manual) Monocytes % (Manual) Eosinophils % (Manual) Basophils % (Manual) Nucleated RBC % Seg Neutrophils # 10.5 H Seg Neutrophils # Man Lymphocytes # (Manual) Monocytes # (Manual) Eosinophils # (Manual) Basophils # (Manual) PT INR Fibrinogen dRVVT Confirm Interp Factor V Activity POC ABG pH POC ABG pCO2 POC ABG pO2 ABG pO2 ABG HCO3 ABG Base Excess ABG Hemoglobin Oxyhemoglobin Sodium Potassium Chloride Carbon Dioxide BUN 43 H Creatinine Glucose 124 H POC Glucose 141 H Lactic Acid Calcium 8.3 L Phosphorus Magnesium 1.60 L Direct Bilirubin AST ALT Alkaline Phosphatase Lactate Dehydrogenase Troponin T C-Reactive Protein Total Protein Albumin Prealbumin Triglycerides Cholesterol LDL Cholesterol Direct HDL Cholesterol PTH Intact Urine pH Urine WBC (Auto) Urine Creatinine Urine Total Protein Fluid Total Protein Vancomycin Trough Rheumatoid Factor Complement C4 Miscellaneous Test Crossmatch 12/11/16 12/11/16 12/11/16 11:15 17:59 23:48 WBC RBC Hgb Hct MCV MCH MCHC RDW Plt Count Lymph % (Auto) [place] % (Auto) Lymph # [place] # Baso # Seg Neutrophils % Seg Neuts % (Manual) Lymphocytes % (Manual) Monocytes % (Manual) Eosinophils % (Manual) Basophils % (Manual) Nucleated RBC % Seg Neutrophils # Seg Neutrophils # Man Lymphocytes # (Manual) Monocytes # (Manual) Eosinophils # (Manual) Basophils # (Manual) PT INR Fibrinogen dRVVT Confirm Interp Factor V Activity POC ABG pH POC ABG pCO2 POC ABG pO2 ABG pO2 ABG HCO3 ABG Base Excess ABG Hemoglobin Oxyhemoglobin Sodium Potassium Chloride Carbon Dioxide BUN Creatinine Glucose POC Glucose 188 H 106 H 119 H Lactic Acid Calcium Phosphorus Magnesium Direct Bilirubin AST ALT Alkaline Phosphatase Lactate Dehydrogenase Troponin T C-Reactive Protein Total Protein Albumin Prealbumin Triglycerides Cholesterol LDL Cholesterol Direct HDL Cholesterol PTH Intact Urine pH Urine WBC (Auto) Urine Creatinine Urine Total Protein Fluid Total Protein Vancomycin Trough Rheumatoid Factor Complement C4 Miscellaneous Test Crossmatch 12/12/16 12/12/16 12/12/16 05:00 06:01 12:20 WBC 16.7 H RBC 2.87 L Hgb 8.0 L Hct 24.2 L MCV MCH MCHC RDW 17.6 H Plt Count Lymph % (Auto) [place] % (Auto) Lymph # [place] # 1.2 H Baso # Seg Neutrophils % 75.3 H Seg Neuts % (Manual) Lymphocytes % (Manual) Monocytes % (Manual) Eosinophils % (Manual) Basophils % (Manual) Nucleated RBC % Seg Neutrophils # 12.6 H Seg Neutrophils # Man Lymphocytes # (Manual) Monocytes # (Manual) Eosinophils # (Manual) Basophils # (Manual) PT INR Fibrinogen dRVVT Confirm Interp Factor V Activity POC ABG pH POC ABG pCO2 POC ABG pO2 ABG pO2 ABG HCO3 ABG Base Excess ABG Hemoglobin Oxyhemoglobin Sodium Potassium Chloride Carbon Dioxide BUN Creatinine Glucose POC Glucose 134 H 149 H Lactic Acid Calcium Phosphorus Magnesium Direct Bilirubin AST ALT Alkaline Phosphatase Lactate Dehydrogenase Troponin T C-Reactive Protein Total Protein Albumin Prealbumin Triglycerides Cholesterol LDL Cholesterol Direct HDL Cholesterol PTH Intact Urine pH Urine WBC (Auto) Urine Creatinine Urine Total Protein Fluid Total Protein Vancomycin Trough Rheumatoid Factor Complement C4 Miscellaneous Test Crossmatch 12/12/16 12/12/16 12/12/16 17:38 23:01 Unknown WBC RBC Hgb Hct MCV MCH MCHC RDW Plt Count Lymph % (Auto) [place] % (Auto) Lymph # [place] # Baso # Seg Neutrophils % Seg Neuts % (Manual) Lymphocytes % (Manual) Monocytes % (Manual) Eosinophils % (Manual) Basophils % (Manual) Nucleated RBC % Seg Neutrophils # Seg Neutrophils # Man Lymphocytes # (Manual) Monocytes # (Manual) Eosinophils # (Manual) Basophils # (Manual) PT INR Fibrinogen dRVVT Confirm Interp Factor V Activity POC ABG pH POC ABG pCO2 POC ABG pO2 ABG pO2 ABG HCO3 ABG Base Excess ABG Hemoglobin Oxyhemoglobin Sodium Potassium Chloride Carbon Dioxide BUN 60 H Creatinine 1.3 H Glucose 126 H POC Glucose 127 H 144 H Lactic Acid Calcium Phosphorus Magnesium Direct Bilirubin AST ALT Alkaline Phosphatase Lactate Dehydrogenase Troponin T C-Reactive Protein Total Protein Albumin Prealbumin Triglycerides Cholesterol LDL Cholesterol Direct HDL Cholesterol PTH Intact Urine pH Urine WBC (Auto) Urine Creatinine Urine Total Protein Fluid Total Protein Vancomycin Trough Rheumatoid Factor Complement C4 Miscellaneous Test Crossmatch 12/13/16 12/13/16 12/13/16 04:00 04:00 05:19 WBC 18.7 H RBC 2.89 L Hgb 8.3 L Hct 24.6 L MCV MCH MCHC RDW 17.5 H Plt Count Lymph % (Auto) [place] % (Auto) Lymph # [place] # 1.3 H Baso # Seg Neutrophils % 71.5 H Seg Neuts % (Manual) Lymphocytes % (Manual) Monocytes % (Manual) Eosinophils % (Manual) Basophils % (Manual) Nucleated RBC % Seg Neutrophils # 13.4 H Seg Neutrophils # Man Lymphocytes # (Manual) Monocytes # (Manual) Eosinophils # (Manual) Basophils # (Manual) PT INR Fibrinogen dRVVT Confirm Interp Factor V Activity POC ABG pH POC ABG pCO2 POC ABG pO2 ABG pO2 ABG HCO3 ABG Base Excess ABG Hemoglobin Oxyhemoglobin Sodium Potassium Chloride Carbon Dioxide BUN 73 H Creatinine 1.5 H Glucose 141 H POC Glucose 171 H Lactic Acid Calcium Phosphorus Magnesium Direct Bilirubin AST ALT Alkaline Phosphatase Lactate Dehydrogenase Troponin T C-Reactive Protein Total Protein Albumin Prealbumin Triglycerides Cholesterol LDL Cholesterol Direct HDL Cholesterol PTH Intact Urine pH Urine WBC (Auto) Urine Creatinine Urine Total Protein Fluid Total Protein Vancomycin Trough Rheumatoid Factor Complement C4 Miscellaneous Test Crossmatch 12/13/16 12/13/16 12/14/16 12:28 16:48 00:01 WBC RBC Hgb Hct MCV MCH MCHC RDW Plt Count Lymph % (Auto) [place] % (Auto) Lymph # [place] # Baso # Seg Neutrophils % Seg Neuts % (Manual) Lymphocytes % (Manual) Monocytes % (Manual) Eosinophils % (Manual) Basophils % (Manual) Nucleated RBC % Seg Neutrophils # Seg Neutrophils # Man Lymphocytes # (Manual) Monocytes # (Manual) Eosinophils # (Manual) Basophils # (Manual) PT INR Fibrinogen dRVVT Confirm Interp Factor V Activity POC ABG pH POC ABG pCO2 POC ABG pO2 ABG pO2 ABG HCO3 ABG Base Excess ABG Hemoglobin Oxyhemoglobin Sodium Potassium Chloride Carbon Dioxide BUN Creatinine Glucose POC Glucose 206 H 173 H 139 H Lactic Acid Calcium Phosphorus Magnesium Direct Bilirubin AST ALT Alkaline Phosphatase Lactate Dehydrogenase Troponin T C-Reactive Protein Total Protein Albumin Prealbumin Triglycerides Cholesterol LDL Cholesterol Direct HDL Cholesterol PTH Intact Urine pH Urine WBC (Auto) Urine Creatinine Urine Total Protein Fluid Total Protein Vancomycin Trough Rheumatoid Factor Complement C4 Miscellaneous Test Crossmatch 12/14/16 12/14/16 12/14/16 05:16 06:10 11:17 WBC RBC Hgb Hct MCV MCH MCHC RDW Plt Count Lymph % (Auto) [place] % (Auto) Lymph # [place] # Baso # Seg Neutrophils % Seg Neuts % (Manual) Lymphocytes % (Manual) Monocytes % (Manual) Eosinophils % (Manual) Basophils % (Manual) Nucleated RBC % Seg Neutrophils # Seg Neutrophils # Man Lymphocytes # (Manual) Monocytes # (Manual) Eosinophils # (Manual) Basophils # (Manual) PT INR Fibrinogen dRVVT Confirm Interp Factor V Activity POC ABG pH POC ABG pCO2 POC ABG pO2 ABG pO2 ABG HCO3 ABG Base Excess ABG Hemoglobin Oxyhemoglobin Sodium Potassium Chloride Carbon Dioxide BUN 57 H Creatinine 1.4 H Glucose 135 H POC Glucose 158 H 137 H Lactic Acid Calcium Phosphorus Magnesium Direct Bilirubin AST ALT Alkaline Phosphatase Lactate Dehydrogenase Troponin T C-Reactive Protein Total Protein Albumin Prealbumin Triglycerides Cholesterol LDL Cholesterol Direct HDL Cholesterol PTH Intact Urine pH Urine WBC (Auto) Urine Creatinine Urine Total Protein Fluid Total Protein Vancomycin Trough Rheumatoid Factor Complement C4 Miscellaneous Test Crossmatch 12/14/16 12/14/16 12/15/16 17:52 23:27 04:00 WBC RBC Hgb Hct MCV MCH MCHC RDW Plt Count Lymph % (Auto) [place] % (Auto) Lymph # [place] # Baso # Seg Neutrophils % Seg Neuts % (Manual) Lymphocytes % (Manual) Monocytes % (Manual) Eosinophils % (Manual) Basophils % (Manual) Nucleated RBC % Seg Neutrophils # Seg Neutrophils # Man Lymphocytes # (Manual) Monocytes # (Manual) Eosinophils # (Manual) Basophils # (Manual) PT INR Fibrinogen dRVVT Confirm Interp Factor V Activity POC ABG pH POC ABG pCO2 POC ABG pO2 ABG pO2 ABG HCO3 ABG Base Excess ABG Hemoglobin Oxyhemoglobin Sodium Potassium Chloride 97.9 L Carbon Dioxide BUN 75 H Creatinine 1.6 H Glucose 122 H POC Glucose 149 H 163 H Lactic Acid Calcium Phosphorus 5.20 H Magnesium Direct Bilirubin AST ALT Alkaline Phosphatase Lactate Dehydrogenase Troponin T C-Reactive Protein Total Protein Albumin Prealbumin Triglycerides Cholesterol LDL Cholesterol Direct HDL Cholesterol PTH Intact Urine pH Urine WBC (Auto) Urine Creatinine Urine Total Protein Fluid Total Protein Vancomycin Trough Rheumatoid Factor Complement C4 Miscellaneous Test Crossmatch 12/15/16 12/15/16 12/15/16 05:50 11:24 17:01 WBC RBC Hgb Hct MCV MCH MCHC RDW Plt Count Lymph % (Auto) [place] % (Auto) Lymph # [place] # Baso # Seg Neutrophils % Seg Neuts % (Manual) Lymphocytes % (Manual) Monocytes % (Manual) Eosinophils % (Manual) Basophils % (Manual) Nucleated RBC % Seg Neutrophils # Seg Neutrophils # Man Lymphocytes # (Manual) Monocytes # (Manual) Eosinophils # (Manual) Basophils # (Manual) PT INR Fibrinogen dRVVT Confirm Interp Factor V Activity POC ABG pH POC ABG pCO2 POC ABG pO2 ABG pO2 ABG HCO3 ABG Base Excess ABG Hemoglobin Oxyhemoglobin Sodium Potassium Chloride Carbon Dioxide BUN Creatinine Glucose POC Glucose 150 H 146 H 167 H Lactic Acid Calcium Phosphorus Magnesium Direct Bilirubin AST ALT Alkaline Phosphatase Lactate Dehydrogenase Troponin T C-Reactive Protein Total Protein Albumin Prealbumin Triglycerides Cholesterol LDL Cholesterol Direct HDL Cholesterol PTH Intact Urine pH Urine WBC (Auto) Urine Creatinine Urine Total Protein Fluid Total Protein Vancomycin Trough Rheumatoid Factor Complement C4 Miscellaneous Test Crossmatch 12/15/16 12/16/16 12/16/16 23:34 05:25 11:24 WBC RBC Hgb Hct MCV MCH MCHC RDW Plt Count Lymph % (Auto) [place] % (Auto) Lymph # [place] # Baso # Seg Neutrophils % Seg Neuts % (Manual) Lymphocytes % (Manual) Monocytes % (Manual) Eosinophils % (Manual) Basophils % (Manual) Nucleated RBC % Seg Neutrophils # Seg Neutrophils # Man Lymphocytes # (Manual) Monocytes # (Manual) Eosinophils # (Manual) Basophils # (Manual) PT INR Fibrinogen dRVVT Confirm Interp Factor V Activity POC ABG pH POC ABG pCO2 POC ABG pO2 ABG pO2 ABG HCO3 ABG Base Excess ABG Hemoglobin Oxyhemoglobin Sodium Potassium Chloride Carbon Dioxide BUN Creatinine Glucose POC Glucose 127 H 139 H 165 H Lactic Acid Calcium Phosphorus Magnesium Direct Bilirubin AST ALT Alkaline Phosphatase Lactate Dehydrogenase Troponin T C-Reactive Protein Total Protein Albumin Prealbumin Triglycerides Cholesterol LDL Cholesterol Direct HDL Cholesterol PTH Intact Urine pH Urine WBC (Auto) Urine Creatinine Urine Total Protein Fluid Total Protein Vancomycin Trough Rheumatoid Factor Complement C4 Miscellaneous Test Crossmatch 12/16/16 12/16/16 12/16/16 15:30 16:25 17:31 WBC 17.8 H RBC 2.38 L Hgb 6.4 L Hct 20.3 L MCV MCH 27 L MCHC RDW 17.4 H Plt Count Lymph % (Auto) [place] % (Auto) Lymph # [place] # Baso # Seg Neutrophils % Seg Neuts % (Manual) Lymphocytes % (Manual) Monocytes % (Manual) 10.0 H Eosinophils % (Manual) Basophils % (Manual) Nucleated RBC % Seg Neutrophils # Seg Neutrophils # Man 8.5 H Lymphocytes # (Manual) Monocytes # (Manual) 1.8 H Eosinophils # (Manual) Basophils # (Manual) PT INR Fibrinogen dRVVT Confirm Interp Factor V Activity POC ABG pH POC ABG pCO2 POC ABG pO2 ABG pO2 ABG HCO3 ABG Base Excess ABG Hemoglobin Oxyhemoglobin Sodium Potassium Chloride Carbon Dioxide BUN Creatinine Glucose POC Glucose 176 H Lactic Acid Calcium Phosphorus Magnesium Direct Bilirubin AST ALT Alkaline Phosphatase Lactate Dehydrogenase Troponin T C-Reactive Protein Total Protein Albumin Prealbumin Triglycerides Cholesterol LDL Cholesterol Direct HDL Cholesterol PTH Intact Urine pH Urine WBC (Auto) Urine Creatinine Urine Total Protein Fluid Total Protein Vancomycin Trough Rheumatoid Factor Complement C4 Miscellaneous Test Crossmatch See Detail 12/17/16 12/17/16 12/17/16 00:14 04:00 05:00 WBC 20.0 H RBC 2.99 L Hgb 8.5 L Hct 25.7 L MCV MCH MCHC RDW 17.2 H Plt Count Lymph % (Auto) [place] % (Auto) Lymph # [place] # Baso # Seg Neutrophils % Seg Neuts % (Manual) Lymphocytes % (Manual) Monocytes % (Manual) Eosinophils % (Manual) Basophils % (Manual) Nucleated RBC % Seg Neutrophils # Seg Neutrophils # Man Lymphocytes # (Manual) Monocytes # (Manual) Eosinophils # (Manual) Basophils # (Manual) PT INR Fibrinogen dRVVT Confirm Interp Factor V Activity POC ABG pH POC ABG pCO2 POC ABG pO2 ABG pO2 ABG HCO3 ABG Base Excess ABG Hemoglobin Oxyhemoglobin Sodium Potassium Chloride 97.7 L Carbon Dioxide BUN 73 H Creatinine 1.7 H Glucose 136 H POC Glucose 148 H Lactic Acid Calcium Phosphorus 2.20 L Magnesium 2.70 H Direct Bilirubin AST ALT Alkaline Phosphatase Lactate Dehydrogenase Troponin T C-Reactive Protein Total Protein Albumin Prealbumin Triglycerides Cholesterol LDL Cholesterol Direct HDL Cholesterol PTH Intact Urine pH Urine WBC (Auto) Urine Creatinine Urine Total Protein Fluid Total Protein Vancomycin Trough Rheumatoid Factor Complement C4 Miscellaneous Test Crossmatch 12/17/16 12/17/16 12/17/16 05:39 12:50 16:32 WBC RBC Hgb Hct MCV MCH MCHC RDW Plt Count Lymph % (Auto) [place] % (Auto) Lymph # [place] # Baso # Seg Neutrophils % Seg Neuts % (Manual) Lymphocytes % (Manual) Monocytes % (Manual) Eosinophils % (Manual) Basophils % (Manual) Nucleated RBC % Seg Neutrophils # Seg Neutrophils # Man Lymphocytes # (Manual) Monocytes # (Manual) Eosinophils # (Manual) Basophils # (Manual) PT INR Fibrinogen dRVVT Confirm Interp Factor V Activity POC ABG pH POC ABG pCO2 POC ABG pO2 ABG pO2 ABG HCO3 ABG Base Excess ABG Hemoglobin Oxyhemoglobin Sodium Potassium Chloride Carbon Dioxide BUN Creatinine Glucose POC Glucose 162 H 146 H 169 H Lactic Acid Calcium Phosphorus Magnesium Direct Bilirubin AST ALT Alkaline Phosphatase Lactate Dehydrogenase Troponin T C-Reactive Protein Total Protein Albumin Prealbumin Triglycerides Cholesterol LDL Cholesterol Direct HDL Cholesterol PTH Intact Urine pH Urine WBC (Auto) Urine Creatinine Urine Total Protein Fluid Total Protein Vancomycin Trough Rheumatoid Factor Complement C4 Miscellaneous Test Crossmatch 12/17/16 12/18/16 12/18/16 23:57 05:00 05:32 WBC RBC Hgb Hct MCV MCH MCHC RDW Plt Count Lymph % (Auto) [place] % (Auto) Lymph # [place] # Baso # Seg Neutrophils % Seg Neuts % (Manual) Lymphocytes % (Manual) Monocytes % (Manual) Eosinophils % (Manual) Basophils % (Manual) Nucleated RBC % Seg Neutrophils # Seg Neutrophils # Man Lymphocytes # (Manual) Monocytes # (Manual) Eosinophils # (Manual) Basophils # (Manual) PT INR Fibrinogen dRVVT Confirm Interp Factor V Activity POC ABG pH POC ABG pCO2 POC ABG pO2 ABG pO2 ABG HCO3 ABG Base Excess ABG Hemoglobin Oxyhemoglobin Sodium Potassium Chloride 97.0 L Carbon Dioxide BUN 63 H Creatinine 1.4 H Glucose 174 H POC Glucose 145 H 201 H Lactic Acid Calcium Phosphorus 1.70 L D Magnesium Direct Bilirubin AST ALT Alkaline Phosphatase 257 H Lactate Dehydrogenase Troponin T C-Reactive Protein Total Protein 5.9 L Albumin 1.8 L Prealbumin Triglycerides Cholesterol LDL Cholesterol Direct HDL Cholesterol PTH Intact Urine pH Urine WBC (Auto) Urine Creatinine Urine Total Protein Fluid Total Protein Vancomycin Trough Rheumatoid Factor Complement C4 Miscellaneous Test Crossmatch 12/18/16 12/18/16 12/18/16 11:43 16:52 23:52 WBC RBC Hgb Hct MCV MCH MCHC RDW Plt Count Lymph % (Auto) [place] % (Auto) Lymph # [place] # Baso # Seg Neutrophils % Seg Neuts % (Manual) Lymphocytes % (Manual) Monocytes % (Manual) Eosinophils % (Manual) Basophils % (Manual) Nucleated RBC % Seg Neutrophils # Seg Neutrophils # Man Lymphocytes # (Manual) Monocytes # (Manual) Eosinophils # (Manual) Basophils # (Manual) PT INR Fibrinogen dRVVT Confirm Interp Factor V Activity POC ABG pH POC ABG pCO2 POC ABG pO2 ABG pO2 ABG HCO3 ABG Base Excess ABG Hemoglobin Oxyhemoglobin Sodium Potassium Chloride Carbon Dioxide BUN Creatinine Glucose POC Glucose 177 H 110 H 162 H Lactic Acid Calcium Phosphorus Magnesium Direct Bilirubin AST ALT Alkaline Phosphatase Lactate Dehydrogenase Troponin T C-Reactive Protein Total Protein Albumin Prealbumin Triglycerides Cholesterol LDL Cholesterol Direct HDL Cholesterol PTH Intact Urine pH Urine WBC (Auto) Urine Creatinine Urine Total Protein Fluid Total Protein Vancomycin Trough Rheumatoid Factor Complement C4 Miscellaneous Test Crossmatch 12/19/16 12/19/16 12/19/16 05:02 05:24 09:30 WBC 20.1 H RBC 2.73 L Hgb 7.6 L Hct 23.6 L MCV MCH MCHC RDW 17.6 H Plt Count Lymph % (Auto) [place] % (Auto) Lymph # [place] # Baso # Seg Neutrophils % Seg Neuts % (Manual) Lymphocytes % (Manual) 13.0 L Monocytes % (Manual) Eosinophils % (Manual) Basophils % (Manual) Nucleated RBC % 1.0 H Seg Neutrophils # Seg Neutrophils # Man 12.9 H Lymphocytes # (Manual) Monocytes # (Manual) 1.4 H Eosinophils # (Manual) Basophils # (Manual) 0.2 H PT INR Fibrinogen dRVVT Confirm Interp Factor V Activity POC ABG pH POC ABG pCO2 POC ABG pO2 ABG pO2 ABG HCO3 ABG Base Excess ABG Hemoglobin Oxyhemoglobin Sodium Potassium Chloride 97.8 L Carbon Dioxide BUN 84 H Creatinine 1.6 H Glucose 133 H POC Glucose 134 H Lactic Acid Calcium Phosphorus Magnesium Direct Bilirubin AST ALT Alkaline Phosphatase Lactate Dehydrogenase Troponin T C-Reactive Protein Total Protein Albumin Prealbumin Triglycerides Cholesterol LDL Cholesterol Direct HDL Cholesterol PTH Intact Urine pH Urine WBC (Auto) Urine Creatinine Urine Total Protein Fluid Total Protein Vancomycin Trough Rheumatoid Factor Complement C4 Miscellaneous Test Crossmatch 12/19/16 12/19/16 12/19/16 09:36 11:12 18:29 WBC RBC Hgb Hct MCV MCH MCHC RDW Plt Count Lymph % (Auto) [place] % (Auto) Lymph # [place] # Baso # Seg Neutrophils % Seg Neuts % (Manual) Lymphocytes % (Manual) Monocytes % (Manual) Eosinophils % (Manual) Basophils % (Manual) Nucleated RBC % Seg Neutrophils # Seg Neutrophils # Man Lymphocytes # (Manual) Monocytes # (Manual) Eosinophils # (Manual) Basophils # (Manual) PT INR Fibrinogen dRVVT Confirm Interp Factor V Activity POC ABG pH 7.503 H POC ABG pCO2 30.1 L POC ABG pO2 ABG pO2 ABG HCO3 ABG Base Excess ABG Hemoglobin Oxyhemoglobin Sodium Potassium Chloride Carbon Dioxide BUN Creatinine Glucose POC Glucose 138 H 156 H Lactic Acid Calcium Phosphorus Magnesium Direct Bilirubin AST ALT Alkaline Phosphatase Lactate Dehydrogenase Troponin T C-Reactive Protein Total Protein Albumin Prealbumin Triglycerides Cholesterol LDL Cholesterol Direct HDL Cholesterol PTH Intact Urine pH Urine WBC (Auto) Urine Creatinine Urine Total Protein Fluid Total Protein Vancomycin Trough Rheumatoid Factor Complement C4 Miscellaneous Test Crossmatch 12/20/16 12/20/16 12/20/16 00:03 06:17 07:07 WBC RBC Hgb Hct MCV MCH MCHC RDW Plt Count Lymph % (Auto) [place] % (Auto) Lymph # [place] # Baso # Seg Neutrophils % Seg Neuts % (Manual) Lymphocytes % (Manual) Monocytes % (Manual) Eosinophils % (Manual) Basophils % (Manual) Nucleated RBC % Seg Neutrophils # Seg Neutrophils # Man Lymphocytes # (Manual) Monocytes # (Manual) Eosinophils # (Manual) Basophils # (Manual) PT INR Fibrinogen dRVVT Confirm Interp Factor V Activity POC ABG pH POC ABG pCO2 POC ABG pO2 ABG pO2 ABG HCO3 ABG Base Excess ABG Hemoglobin Oxyhemoglobin Sodium Potassium Chloride 97.1 L Carbon Dioxide 20 L BUN 97 H Creatinine 1.8 H Glucose 153 H POC Glucose 152 H 175 H Lactic Acid Calcium Phosphorus Magnesium Direct Bilirubin AST ALT Alkaline Phosphatase Lactate Dehydrogenase Troponin T C-Reactive Protein Total Protein Albumin Prealbumin Triglycerides Cholesterol LDL Cholesterol Direct HDL Cholesterol PTH Intact Urine pH Urine WBC (Auto) Urine Creatinine Urine Total Protein Fluid Total Protein Vancomycin Trough Rheumatoid Factor Complement C4 Miscellaneous Test Crossmatch 12/20/16 12/20/16 12/20/16 12:00 17:42 23:53 WBC RBC Hgb Hct MCV MCH MCHC RDW Plt Count Lymph % (Auto) [place] % (Auto) Lymph # [place] # Baso # Seg Neutrophils % Seg Neuts % (Manual) Lymphocytes % (Manual) Monocytes % (Manual) Eosinophils % (Manual) Basophils % (Manual) Nucleated RBC % Seg Neutrophils # Seg Neutrophils # Man Lymphocytes # (Manual) Monocytes # (Manual) Eosinophils # (Manual) Basophils # (Manual) PT INR Fibrinogen dRVVT Confirm Interp Factor V Activity POC ABG pH POC ABG pCO2 POC ABG pO2 ABG pO2 ABG HCO3 ABG Base Excess ABG Hemoglobin Oxyhemoglobin Sodium Potassium Chloride Carbon Dioxide BUN Creatinine Glucose POC Glucose 141 H 156 H 132 H Lactic Acid Calcium Phosphorus Magnesium Direct Bilirubin AST ALT Alkaline Phosphatase Lactate Dehydrogenase Troponin T C-Reactive Protein Total Protein Albumin Prealbumin Triglycerides Cholesterol LDL Cholesterol Direct HDL Cholesterol PTH Intact Urine pH Urine WBC (Auto) Urine Creatinine Urine Total Protein Fluid Total Protein Vancomycin Trough Rheumatoid Factor Complement C4 Miscellaneous Test Crossmatch 12/21/16 12/21/16 12/21/16 05:49 08:50 12:19 WBC RBC Hgb Hct MCV MCH MCHC RDW Plt Count Lymph % (Auto) [place] % (Auto) Lymph # [place] # Baso # Seg Neutrophils % Seg Neuts % (Manual) Lymphocytes % (Manual) Monocytes % (Manual) Eosinophils % (Manual) Basophils % (Manual) Nucleated RBC % Seg Neutrophils # Seg Neutrophils # Man Lymphocytes # (Manual) Monocytes # (Manual) Eosinophils # (Manual) Basophils # (Manual) PT INR Fibrinogen dRVVT Confirm Interp Factor V Activity POC ABG pH POC ABG pCO2 POC ABG pO2 ABG pO2 ABG HCO3 ABG Base Excess ABG Hemoglobin Oxyhemoglobin Sodium Potassium 5.2 H D Chloride Carbon Dioxide BUN 63 H Creatinine Glucose 122 H POC Glucose 132 H 136 H Lactic Acid Calcium 8.3 L Phosphorus Magnesium Direct Bilirubin AST ALT Alkaline Phosphatase Lactate Dehydrogenase Troponin T C-Reactive Protein Total Protein Albumin Prealbumin Triglycerides Cholesterol LDL Cholesterol Direct HDL Cholesterol PTH Intact Urine pH Urine WBC (Auto) Urine Creatinine Urine Total Protein Fluid Total Protein Vancomycin Trough Rheumatoid Factor Complement C4 Miscellaneous Test Crossmatch 12/21/16 12/21/16 12/22/16 17:22 23:58 05:49 WBC RBC Hgb Hct MCV MCH MCHC RDW Plt Count Lymph % (Auto) [place] % (Auto) Lymph # [place] # Baso # Seg Neutrophils % Seg Neuts % (Manual) Lymphocytes % (Manual) Monocytes % (Manual) Eosinophils % (Manual) Basophils % (Manual) Nucleated RBC % Seg Neutrophils # Seg Neutrophils # Man Lymphocytes # (Manual) Monocytes # (Manual) Eosinophils # (Manual) Basophils # (Manual) PT INR Fibrinogen dRVVT Confirm Interp Factor V Activity POC ABG pH POC ABG pCO2 POC ABG pO2 ABG pO2 ABG HCO3 ABG Base Excess ABG Hemoglobin Oxyhemoglobin Sodium Potassium Chloride Carbon Dioxide BUN Creatinine Glucose POC Glucose 135 H 149 H 140 H Lactic Acid Calcium Phosphorus Magnesium Direct Bilirubin AST ALT Alkaline Phosphatase Lactate Dehydrogenase Troponin T C-Reactive Protein Total Protein Albumin Prealbumin Triglycerides Cholesterol LDL Cholesterol Direct HDL Cholesterol PTH Intact Urine pH Urine WBC (Auto) Urine Creatinine Urine Total Protein Fluid Total Protein Vancomycin Trough Rheumatoid Factor Complement C4 Miscellaneous Test Crossmatch 12/22/16 12/22/16 12/22/16 06:10 11:17 17:31 WBC RBC Hgb Hct MCV MCH MCHC RDW Plt Count Lymph % (Auto) [place] % (Auto) Lymph # [place] # Baso # Seg Neutrophils % Seg Neuts % (Manual) Lymphocytes % (Manual) Monocytes % (Manual) Eosinophils % (Manual) Basophils % (Manual) Nucleated RBC % Seg Neutrophils # Seg Neutrophils # Man Lymphocytes # (Manual) Monocytes # (Manual) Eosinophils # (Manual) Basophils # (Manual) PT INR Fibrinogen dRVVT Confirm Interp Factor V Activity POC ABG pH POC ABG pCO2 POC ABG pO2 ABG pO2 ABG HCO3 ABG Base Excess ABG Hemoglobin Oxyhemoglobin Sodium Potassium Chloride Carbon Dioxide BUN 76 H Creatinine 1.5 H Glucose 241 H POC Glucose 193 H 148 H Lactic Acid Calcium Phosphorus Magnesium Direct Bilirubin AST ALT Alkaline Phosphatase Lactate Dehydrogenase Troponin T C-Reactive Protein Total Protein Albumin Prealbumin Triglycerides Cholesterol LDL Cholesterol Direct HDL Cholesterol PTH Intact Urine pH Urine WBC (Auto) Urine Creatinine Urine Total Protein Fluid Total Protein Vancomycin Trough Rheumatoid Factor Complement C4 Miscellaneous Test Crossmatch 12/22/16 12/23/16 12/23/16 23:58 05:00 05:26 WBC RBC Hgb Hct MCV MCH MCHC RDW Plt Count Lymph % (Auto) [place] % (Auto) Lymph # [place] # Baso # Seg Neutrophils % Seg Neuts % (Manual) Lymphocytes % (Manual) Monocytes % (Manual) Eosinophils % (Manual) Basophils % (Manual) Nucleated RBC % Seg Neutrophils # Seg Neutrophils # Man Lymphocytes # (Manual) Monocytes # (Manual) Eosinophils # (Manual) Basophils # (Manual) PT INR Fibrinogen dRVVT Confirm Interp Factor V Activity POC ABG pH POC ABG pCO2 POC ABG pO2 ABG pO2 ABG HCO3 ABG Base Excess ABG Hemoglobin Oxyhemoglobin Sodium Potassium Chloride Carbon Dioxide BUN 49 H Creatinine Glucose 143 H POC Glucose 165 H 154 H Lactic Acid Calcium 8.2 L Phosphorus Magnesium 1.60 L Direct Bilirubin AST ALT Alkaline Phosphatase Lactate Dehydrogenase Troponin T C-Reactive Protein Total Protein Albumin Prealbumin Triglycerides Cholesterol LDL Cholesterol Direct HDL Cholesterol PTH Intact Urine pH Urine WBC (Auto) Urine Creatinine Urine Total Protein Fluid Total Protein Vancomycin Trough Rheumatoid Factor Complement C4 Miscellaneous Test Crossmatch 12/23/16 12/23/16 12/24/16 12:35 17:01 00:01 WBC RBC Hgb Hct MCV MCH MCHC RDW Plt Count Lymph % (Auto) [place] % (Auto) Lymph # [place] # Baso # Seg Neutrophils % Seg Neuts % (Manual) Lymphocytes % (Manual) Monocytes % (Manual) Eosinophils % (Manual) Basophils % (Manual) Nucleated RBC % Seg Neutrophils # Seg Neutrophils # Man Lymphocytes # (Manual) Monocytes # (Manual) Eosinophils # (Manual) Basophils # (Manual) PT INR Fibrinogen dRVVT Confirm Interp Factor V Activity POC ABG pH POC ABG pCO2 POC ABG pO2 ABG pO2 ABG HCO3 ABG Base Excess ABG Hemoglobin Oxyhemoglobin Sodium Potassium Chloride Carbon Dioxide BUN Creatinine Glucose POC Glucose 164 H 149 H 135 H Lactic Acid Calcium Phosphorus Magnesium Direct Bilirubin AST ALT Alkaline Phosphatase Lactate Dehydrogenase Troponin T C-Reactive Protein Total Protein Albumin Prealbumin Triglycerides Cholesterol LDL Cholesterol Direct HDL Cholesterol PTH Intact Urine pH Urine WBC (Auto) Urine Creatinine Urine Total Protein Fluid Total Protein Vancomycin Trough Rheumatoid Factor Complement C4 Miscellaneous Test Crossmatch 12/24/16 12/24/16 12/24/16 05:41 07:01 11:38 WBC RBC Hgb Hct MCV MCH MCHC RDW Plt Count Lymph % (Auto) [place] % (Auto) Lymph # [place] # Baso # Seg Neutrophils % Seg Neuts % (Manual) Lymphocytes % (Manual) Monocytes % (Manual) Eosinophils % (Manual) Basophils % (Manual) Nucleated RBC % Seg Neutrophils # Seg Neutrophils # Man Lymphocytes # (Manual) Monocytes # (Manual) Eosinophils # (Manual) Basophils # (Manual) PT INR Fibrinogen dRVVT Confirm Interp Factor V Activity POC ABG pH POC ABG pCO2 POC ABG pO2 ABG pO2 ABG HCO3 ABG Base Excess ABG Hemoglobin Oxyhemoglobin Sodium Potassium Chloride Carbon Dioxide BUN 72 H Creatinine 1.3 H Glucose 130 H POC Glucose 132 H 156 H Lactic Acid Calcium 8.2 L Phosphorus Magnesium Direct Bilirubin AST ALT Alkaline Phosphatase Lactate Dehydrogenase Troponin T C-Reactive Protein Total Protein Albumin Prealbumin Triglycerides Cholesterol LDL Cholesterol Direct HDL Cholesterol PTH Intact Urine pH Urine WBC (Auto) Urine Creatinine Urine Total Protein Fluid Total Protein Vancomycin Trough Rheumatoid Factor Complement C4 Miscellaneous Test Crossmatch 12/24/16 12/25/16 12/25/16 17:53 00:23 05:45 WBC RBC Hgb Hct MCV MCH MCHC RDW Plt Count Lymph % (Auto) [place] % (Auto) Lymph # [place] # Baso # Seg Neutrophils % Seg Neuts % (Manual) Lymphocytes % (Manual) Monocytes % (Manual) Eosinophils % (Manual) Basophils % (Manual) Nucleated RBC % Seg Neutrophils # Seg Neutrophils # Man Lymphocytes # (Manual) Monocytes # (Manual) Eosinophils # (Manual) Basophils # (Manual) PT INR Fibrinogen dRVVT Confirm Interp Factor V Activity POC ABG pH POC ABG pCO2 POC ABG pO2 ABG pO2 ABG HCO3 ABG Base Excess ABG Hemoglobin Oxyhemoglobin Sodium 146 H Potassium Chloride Carbon Dioxide BUN 51 H Creatinine Glucose 109 H POC Glucose 169 H 117 H Lactic Acid Calcium Phosphorus Magnesium Direct Bilirubin AST ALT Alkaline Phosphatase Lactate Dehydrogenase Troponin T C-Reactive Protein Total Protein Albumin Prealbumin Triglycerides Cholesterol LDL Cholesterol Direct HDL Cholesterol PTH Intact Urine pH Urine WBC (Auto) Urine Creatinine Urine Total Protein Fluid Total Protein Vancomycin Trough Rheumatoid Factor Complement C4 Miscellaneous Test Crossmatch 12/25/16 12/25/16 12/25/16 06:43 11:29 17:14 WBC RBC Hgb Hct MCV MCH MCHC RDW Plt Count Lymph % (Auto) [place] % (Auto) Lymph # [place] # Baso # Seg Neutrophils % Seg Neuts % (Manual) Lymphocytes % (Manual) Monocytes % (Manual) Eosinophils % (Manual) Basophils % (Manual) Nucleated RBC % Seg Neutrophils # Seg Neutrophils # Man Lymphocytes # (Manual) Monocytes # (Manual) Eosinophils # (Manual) Basophils # (Manual) PT INR Fibrinogen dRVVT Confirm Interp Factor V Activity POC ABG pH POC ABG pCO2 POC ABG pO2 ABG pO2 ABG HCO3 ABG Base Excess ABG Hemoglobin Oxyhemoglobin Sodium Potassium Chloride Carbon Dioxide BUN Creatinine Glucose POC Glucose 117 H 128 H 120 H Lactic Acid Calcium Phosphorus Magnesium Direct Bilirubin AST ALT Alkaline Phosphatase Lactate Dehydrogenase Troponin T C-Reactive Protein Total Protein Albumin Prealbumin Triglycerides Cholesterol LDL Cholesterol Direct HDL Cholesterol PTH Intact Urine pH Urine WBC (Auto) Urine Creatinine Urine Total Protein Fluid Total Protein Vancomycin Trough Rheumatoid Factor Complement C4 Miscellaneous Test Crossmatch 12/25/16 12/26/16 12/26/16 23:54 05:40 05:50 WBC 16.2 H RBC 2.32 L Hgb 6.2 L Hct 20.1 L MCV MCH 27 L MCHC RDW 18.6 H Plt Count Lymph % (Auto) [place] % (Auto) Lymph # [place] # Baso # Seg Neutrophils % Seg Neuts % (Manual) Lymphocytes % (Manual) Monocytes % (Manual) Eosinophils % (Manual) Basophils % (Manual) Nucleated RBC % Seg Neutrophils # Seg Neutrophils # Man Lymphocytes # (Manual) Monocytes # (Manual) Eosinophils # (Manual) Basophils # (Manual) PT INR Fibrinogen dRVVT Confirm Interp Factor V Activity POC ABG pH POC ABG pCO2 POC ABG pO2 ABG pO2 ABG HCO3 ABG Base Excess ABG Hemoglobin Oxyhemoglobin Sodium Potassium Chloride Carbon Dioxide BUN Creatinine Glucose POC Glucose 126 H 132 H Lactic Acid Calcium Phosphorus Magnesium Direct Bilirubin AST ALT Alkaline Phosphatase Lactate Dehydrogenase Troponin T C-Reactive Protein Total Protein Albumin Prealbumin Triglycerides Cholesterol LDL Cholesterol Direct HDL Cholesterol PTH Intact Urine pH Urine WBC (Auto) Urine Creatinine Urine Total Protein Fluid Total Protein Vancomycin Trough Rheumatoid Factor Complement C4 Miscellaneous Test Crossmatch 12/26/16 12/26/16 12/26/16 05:50 12:17 12:33 WBC RBC Hgb Hct MCV MCH MCHC RDW Plt Count Lymph % (Auto) [place] % (Auto) Lymph # [place] # Baso # Seg Neutrophils % Seg Neuts % (Manual) Lymphocytes % (Manual) Monocytes % (Manual) Eosinophils % (Manual) Basophils % (Manual) Nucleated RBC % Seg Neutrophils # Seg Neutrophils # Man Lymphocytes # (Manual) Monocytes # (Manual) Eosinophils # (Manual) Basophils # (Manual) PT INR Fibrinogen dRVVT Confirm Interp Factor V Activity POC ABG pH POC ABG pCO2 POC ABG pO2 ABG pO2 ABG HCO3 ABG Base Excess ABG Hemoglobin Oxyhemoglobin Sodium Potassium Chloride Carbon Dioxide BUN 73 H Creatinine 1.3 H Glucose 113 H POC Glucose 117 H Lactic Acid Calcium Phosphorus Magnesium Direct Bilirubin AST ALT Alkaline Phosphatase Lactate Dehydrogenase Troponin T C-Reactive Protein Total Protein Albumin Prealbumin Triglycerides Cholesterol LDL Cholesterol Direct HDL Cholesterol PTH Intact Urine pH Urine WBC (Auto) Urine Creatinine Urine Total Protein Fluid Total Protein Vancomycin Trough Rheumatoid Factor Complement C4 Miscellaneous Test Crossmatch See Detail 12/26/16 12/26/16 12/27/16 20:00 23:21 05:00 WBC RBC Hgb 8.4 L Hct 26.3 L D MCV MCH MCHC RDW Plt Count Lymph % (Auto) [place] % (Auto) Lymph # [place] # Baso # Seg Neutrophils % Seg Neuts % (Manual) Lymphocytes % (Manual) Monocytes % (Manual) Eosinophils % (Manual) Basophils % (Manual) Nucleated RBC % Seg Neutrophils # Seg Neutrophils # Man Lymphocytes # (Manual) Monocytes # (Manual) Eosinophils # (Manual) Basophils # (Manual) PT INR Fibrinogen dRVVT Confirm Interp Factor V Activity POC ABG pH POC ABG pCO2 POC ABG pO2 ABG pO2 ABG HCO3 ABG Base Excess ABG Hemoglobin Oxyhemoglobin Sodium Potassium Chloride Carbon Dioxide BUN 85 H Creatinine 1.6 H Glucose 118 H POC Glucose 124 H Lactic Acid Calcium Phosphorus 4.80 H Magnesium Direct Bilirubin AST ALT Alkaline Phosphatase Lactate Dehydrogenase Troponin T C-Reactive Protein Total Protein Albumin Prealbumin Triglycerides Cholesterol LDL Cholesterol Direct HDL Cholesterol PTH Intact Urine pH Urine WBC (Auto) Urine Creatinine Urine Total Protein Fluid Total Protein Vancomycin Trough Rheumatoid Factor Complement C4 Miscellaneous Test Crossmatch 12/27/16 12/27/16 12/27/16 05:00 05:35 12:24 WBC RBC Hgb 7.6 L Hct 22.8 L MCV MCH MCHC RDW Plt Count Lymph % (Auto) [place] % (Auto) Lymph # [place] # Baso # Seg Neutrophils % Seg Neuts % (Manual) Lymphocytes % (Manual) Monocytes % (Manual) Eosinophils % (Manual) Basophils % (Manual) Nucleated RBC % Seg Neutrophils # Seg Neutrophils # Man Lymphocytes # (Manual) Monocytes # (Manual) Eosinophils # (Manual) Basophils # (Manual) PT INR Fibrinogen dRVVT Confirm Interp Factor V Activity POC ABG pH POC ABG pCO2 POC ABG pO2 ABG pO2 ABG HCO3 ABG Base Excess ABG Hemoglobin Oxyhemoglobin Sodium Potassium Chloride Carbon Dioxide BUN Creatinine Glucose POC Glucose 115 H 131 H Lactic Acid Calcium Phosphorus Magnesium Direct Bilirubin AST ALT Alkaline Phosphatase Lactate Dehydrogenase Troponin T C-Reactive Protein Total Protein Albumin Prealbumin Triglycerides Cholesterol LDL Cholesterol Direct HDL Cholesterol PTH Intact Urine pH Urine WBC (Auto) Urine Creatinine Urine Total Protein Fluid Total Protein Vancomycin Trough Rheumatoid Factor Complement C4 Miscellaneous Test Crossmatch 12/27/16 12/28/16 12/28/16 17:16 00:18 04:00 WBC RBC Hgb Hct MCV MCH MCHC RDW Plt Count Lymph % (Auto) [place] % (Auto) Lymph # [place] # Baso # Seg Neutrophils % Seg Neuts % (Manual) Lymphocytes % (Manual) Monocytes % (Manual) Eosinophils % (Manual) Basophils % (Manual) Nucleated RBC % Seg Neutrophils # Seg Neutrophils # Man Lymphocytes # (Manual) Monocytes # (Manual) Eosinophils # (Manual) Basophils # (Manual) PT INR Fibrinogen dRVVT Confirm Interp Factor V Activity POC ABG pH POC ABG pCO2 POC ABG pO2 ABG pO2 ABG HCO3 ABG Base Excess ABG Hemoglobin Oxyhemoglobin Sodium Potassium 3.5 L Chloride Carbon Dioxide BUN 57 H Creatinine Glucose 118 H POC Glucose 136 H 120 H Lactic Acid Calcium 8.3 L Phosphorus Magnesium Direct Bilirubin AST ALT Alkaline Phosphatase Lactate Dehydrogenase Troponin T C-Reactive Protein Total Protein Albumin Prealbumin Triglycerides Cholesterol LDL Cholesterol Direct HDL Cholesterol PTH Intact Urine pH Urine WBC (Auto) Urine Creatinine Urine Total Protein Fluid Total Protein Vancomycin Trough Rheumatoid Factor Complement C4 Miscellaneous Test Crossmatch 12/28/16 12/28/16 12/28/16 04:00 05:11 08:30 WBC 17.0 H RBC 2.58 L Hgb 7.1 L Hct 22.0 L MCV MCH MCHC RDW 17.6 H Plt Count Lymph % (Auto) 12.2 L [place] % (Auto) Lymph # [place] # 1.1 H Baso # Seg Neutrophils % 80.5 H Seg Neuts % (Manual) Lymphocytes % (Manual) Monocytes % (Manual) Eosinophils % (Manual) Basophils % (Manual) Nucleated RBC % Seg Neutrophils # 13.7 H Seg Neutrophils # Man Lymphocytes # (Manual) Monocytes # (Manual) Eosinophils # (Manual) Basophils # (Manual) PT 16.1 H INR 1.23 H Fibrinogen dRVVT Confirm Interp Factor V Activity POC ABG pH POC ABG pCO2 POC ABG pO2 ABG pO2 ABG HCO3 ABG Base Excess ABG Hemoglobin Oxyhemoglobin Sodium Potassium Chloride Carbon Dioxide BUN Creatinine Glucose POC Glucose 122 H Lactic Acid Calcium Phosphorus Magnesium Direct Bilirubin AST ALT Alkaline Phosphatase Lactate Dehydrogenase Troponin T C-Reactive Protein Total Protein Albumin Prealbumin Triglycerides Cholesterol LDL Cholesterol Direct HDL Cholesterol PTH Intact Urine pH Urine WBC (Auto) Urine Creatinine Urine Total Protein Fluid Total Protein Vancomycin Trough Rheumatoid Factor Complement C4 Miscellaneous Test Crossmatch 12/28/16 12/28/16 12/28/16 12:27 16:32 23:46 WBC RBC Hgb Hct MCV MCH MCHC RDW Plt Count Lymph % (Auto) [place] % (Auto) Lymph # [place] # Baso # Seg Neutrophils % Seg Neuts % (Manual) Lymphocytes % (Manual) Monocytes % (Manual) Eosinophils % (Manual) Basophils % (Manual) Nucleated RBC % Seg Neutrophils # Seg Neutrophils # Man Lymphocytes # (Manual) Monocytes # (Manual) Eosinophils # (Manual) Basophils # (Manual) PT INR Fibrinogen dRVVT Confirm Interp Factor V Activity POC ABG pH POC ABG pCO2 POC ABG pO2 ABG pO2 ABG HCO3 ABG Base Excess ABG Hemoglobin Oxyhemoglobin Sodium Potassium Chloride Carbon Dioxide BUN Creatinine Glucose POC Glucose 127 H 117 H 108 H Lactic Acid Calcium Phosphorus Magnesium Direct Bilirubin AST ALT Alkaline Phosphatase Lactate Dehydrogenase Troponin T C-Reactive Protein Total Protein Albumin Prealbumin Triglycerides Cholesterol LDL Cholesterol Direct HDL Cholesterol PTH Intact Urine pH Urine WBC (Auto) Urine Creatinine Urine Total Protein Fluid Total Protein Vancomycin Trough Rheumatoid Factor Complement C4 Miscellaneous Test Crossmatch 12/29/16 12/29/16 12/29/16 05:15 05:15 05:32 WBC RBC Hgb Hct MCV MCH MCHC RDW Plt Count Lymph % (Auto) [place] % (Auto) Lymph # [place] # Baso # Seg Neutrophils % Seg Neuts % (Manual) Lymphocytes % (Manual) Monocytes % (Manual) Eosinophils % (Manual) Basophils % (Manual) Nucleated RBC % Seg Neutrophils # Seg Neutrophils # Man Lymphocytes # (Manual) Monocytes # (Manual) Eosinophils # (Manual) Basophils # (Manual) PT INR Fibrinogen dRVVT Confirm Interp Factor V Activity POC ABG pH POC ABG pCO2 POC ABG pO2 ABG pO2 ABG HCO3 ABG Base Excess ABG Hemoglobin Oxyhemoglobin Sodium Potassium Chloride Carbon Dioxide BUN 74 H Creatinine 1.6 H Glucose 111 H POC Glucose 123 H Lactic Acid Calcium Phosphorus Magnesium Direct Bilirubin AST ALT Alkaline Phosphatase Lactate Dehydrogenase Troponin T C-Reactive Protein Total Protein Albumin Prealbumin 0.110 L Triglycerides Cholesterol LDL Cholesterol Direct HDL Cholesterol PTH Intact Urine pH Urine WBC (Auto) Urine Creatinine Urine Total Protein Fluid Total Protein Vancomycin Trough Rheumatoid Factor Complement C4 Miscellaneous Test Crossmatch 12/29/16 12/29/16 12/29/16 11:43 13:45 14:00 WBC 13.8 H RBC 2.26 L Hgb 6.3 L Hct 20.4 L MCV MCH MCHC RDW 18.3 H Plt Count Lymph % (Auto) [place] % (Auto) Lymph # [place] # 0.9 H Baso # Seg Neutrophils % 78.6 H Seg Neuts % (Manual) Lymphocytes % (Manual) Monocytes % (Manual) Eosinophils % (Manual) Basophils % (Manual) Nucleated RBC % Seg Neutrophils # 10.8 H Seg Neutrophils # Man Lymphocytes # (Manual) Monocytes # (Manual) Eosinophils # (Manual) Basophils # (Manual) PT INR Fibrinogen dRVVT Confirm Interp Factor V Activity POC ABG pH POC ABG pCO2 POC ABG pO2 ABG pO2 ABG HCO3 ABG Base Excess ABG Hemoglobin Oxyhemoglobin Sodium Potassium Chloride Carbon Dioxide BUN Creatinine Glucose POC Glucose 133 H Lactic Acid Calcium Phosphorus Magnesium Direct Bilirubin AST ALT Alkaline Phosphatase Lactate Dehydrogenase Troponin T C-Reactive Protein Total Protein Albumin Prealbumin Triglycerides Cholesterol LDL Cholesterol Direct HDL Cholesterol PTH Intact Urine pH Urine WBC (Auto) Urine Creatinine Urine Total Protein Fluid Total Protein Vancomycin Trough Rheumatoid Factor Complement C4 Miscellaneous Test Crossmatch See Detail 12/29/16 12/29/16 12/29/16 17:03 23:15 23:22 WBC RBC Hgb 7.3 L Hct 22.3 L MCV MCH MCHC RDW Plt Count Lymph % (Auto) [place] % (Auto) Lymph # [place] # Baso # Seg Neutrophils % Seg Neuts % (Manual) Lymphocytes % (Manual) Monocytes % (Manual) Eosinophils % (Manual) Basophils % (Manual) Nucleated RBC % Seg Neutrophils # Seg Neutrophils # Man Lymphocytes # (Manual) Monocytes # (Manual) Eosinophils # (Manual) Basophils # (Manual) PT INR Fibrinogen dRVVT Confirm Interp Factor V Activity POC ABG pH POC ABG pCO2 POC ABG pO2 ABG pO2 ABG HCO3 ABG Base Excess ABG Hemoglobin Oxyhemoglobin Sodium Potassium Chloride Carbon Dioxide BUN Creatinine Glucose POC Glucose 139 H 120 H Lactic Acid Calcium Phosphorus Magnesium Direct Bilirubin AST ALT Alkaline Phosphatase Lactate Dehydrogenase Troponin T C-Reactive Protein Total Protein Albumin Prealbumin Triglycerides Cholesterol LDL Cholesterol Direct HDL Cholesterol PTH Intact Urine pH Urine WBC (Auto) Urine Creatinine Urine Total Protein Fluid Total Protein Vancomycin Trough Rheumatoid Factor Complement C4 Miscellaneous Test Crossmatch 12/30/16 12/30/16 12/30/16 04:20 04:20 05:43 WBC 15.6 H RBC 2.81 L Hgb 8.0 L Hct 24.0 L MCV MCH MCHC RDW 16.9 H Plt Count Lymph % (Auto) [place] % (Auto) Lymph # [place] # 1.0 H Baso # Seg Neutrophils % 76.2 H Seg Neuts % (Manual) Lymphocytes % (Manual) Monocytes % (Manual) Eosinophils % (Manual) Basophils % (Manual) Nucleated RBC % Seg Neutrophils # 11.9 H Seg Neutrophils # Man Lymphocytes # (Manual) Monocytes # (Manual) Eosinophils # (Manual) Basophils # (Manual) PT INR Fibrinogen dRVVT Confirm Interp Factor V Activity POC ABG pH POC ABG pCO2 POC ABG pO2 ABG pO2 ABG HCO3 ABG Base Excess ABG Hemoglobin Oxyhemoglobin Sodium Potassium Chloride Carbon Dioxide BUN 87 H Creatinine 1.8 H Glucose 119 H POC Glucose 115 H Lactic Acid Calcium Phosphorus Magnesium Direct Bilirubin AST ALT Alkaline Phosphatase Lactate Dehydrogenase Troponin T C-Reactive Protein Total Protein Albumin Prealbumin Triglycerides Cholesterol LDL Cholesterol Direct HDL Cholesterol PTH Intact Urine pH Urine WBC (Auto) Urine Creatinine Urine Total Protein Fluid Total Protein Vancomycin Trough Rheumatoid Factor Complement C4 Miscellaneous Test Crossmatch 12/30/16 12/30/16 12/31/16 17:27 23:21 04:00 WBC RBC Hgb Hct MCV MCH MCHC RDW Plt Count Lymph % (Auto) [place] % (Auto) Lymph # [place] # Baso # Seg Neutrophils % Seg Neuts % (Manual) Lymphocytes % (Manual) Monocytes % (Manual) Eosinophils % (Manual) Basophils % (Manual) Nucleated RBC % Seg Neutrophils # Seg Neutrophils # Man Lymphocytes # (Manual) Monocytes # (Manual) Eosinophils # (Manual) Basophils # (Manual) PT INR Fibrinogen dRVVT Confirm Interp Factor V Activity POC ABG pH POC ABG pCO2 POC ABG pO2 ABG pO2 ABG HCO3 ABG Base Excess ABG Hemoglobin Oxyhemoglobin Sodium Potassium Chloride Carbon Dioxide BUN 59 H Creatinine Glucose 298 H POC Glucose 144 H 125 H Lactic Acid Calcium Phosphorus Magnesium Direct Bilirubin AST ALT Alkaline Phosphatase Lactate Dehydrogenase Troponin T C-Reactive Protein Total Protein Albumin Prealbumin Triglycerides Cholesterol LDL Cholesterol Direct HDL Cholesterol PTH Intact Urine pH Urine WBC (Auto) Urine Creatinine Urine Total Protein Fluid Total Protein Vancomycin Trough Rheumatoid Factor Complement C4 Miscellaneous Test Crossmatch 12/31/16 12/31/16 12/31/16 05:11 12:18 18:17 WBC RBC Hgb Hct MCV MCH MCHC RDW Plt Count Lymph % (Auto) [place] % (Auto) Lymph # [place] # Baso # Seg Neutrophils % Seg Neuts % (Manual) Lymphocytes % (Manual) Monocytes % (Manual) Eosinophils % (Manual) Basophils % (Manual) Nucleated RBC % Seg Neutrophils # Seg Neutrophils # Man Lymphocytes # (Manual) Monocytes # (Manual) Eosinophils # (Manual) Basophils # (Manual) PT INR Fibrinogen dRVVT Confirm Interp Factor V Activity POC ABG pH POC ABG pCO2 POC ABG pO2 ABG pO2 ABG HCO3 ABG Base Excess ABG Hemoglobin Oxyhemoglobin Sodium Potassium Chloride Carbon Dioxide BUN Creatinine Glucose POC Glucose 167 H 125 H 133 H Lactic Acid Calcium Phosphorus Magnesium Direct Bilirubin AST ALT Alkaline Phosphatase Lactate Dehydrogenase Troponin T C-Reactive Protein Total Protein Albumin Prealbumin Triglycerides Cholesterol LDL Cholesterol Direct HDL Cholesterol PTH Intact Urine pH Urine WBC (Auto) Urine Creatinine Urine Total Protein Fluid Total Protein Vancomycin Trough Rheumatoid Factor Complement C4 Miscellaneous Test Crossmatch 12/31/16 01/01/17 01/01/17 23:55 05:00 05:12 WBC RBC Hgb Hct MCV MCH MCHC RDW Plt Count Lymph % (Auto) [place] % (Auto) Lymph # [place] # Baso # Seg Neutrophils % Seg Neuts % (Manual) Lymphocytes % (Manual) Monocytes % (Manual) Eosinophils % (Manual) Basophils % (Manual) Nucleated RBC % Seg Neutrophils # Seg Neutrophils # Man Lymphocytes # (Manual) Monocytes # (Manual) Eosinophils # (Manual) Basophils # (Manual) PT INR Fibrinogen dRVVT Confirm Interp Factor V Activity POC ABG pH POC ABG pCO2 POC ABG pO2 ABG pO2 ABG HCO3 ABG Base Excess ABG Hemoglobin Oxyhemoglobin Sodium Potassium Chloride Carbon Dioxide BUN 76 H Creatinine 1.5 H Glucose 109 H POC Glucose 129 H 129 H Lactic Acid Calcium Phosphorus Magnesium Direct Bilirubin AST ALT Alkaline Phosphatase 536 H Lactate Dehydrogenase Troponin T C-Reactive Protein Total Protein Albumin 1.5 L Prealbumin Triglycerides Cholesterol LDL Cholesterol Direct HDL Cholesterol PTH Intact Urine pH Urine WBC (Auto) Urine Creatinine Urine Total Protein Fluid Total Protein Vancomycin Trough Rheumatoid Factor Complement C4 Miscellaneous Test Crossmatch 01/01/17 01/01/17 01/01/17 12:25 17:01 23:32 WBC RBC Hgb Hct MCV MCH MCHC RDW Plt Count Lymph % (Auto) [place] % (Auto) Lymph # [place] # Baso # Seg Neutrophils % Seg Neuts % (Manual) Lymphocytes % (Manual) Monocytes % (Manual) Eosinophils % (Manual) Basophils % (Manual) Nucleated RBC % Seg Neutrophils # Seg Neutrophils # Man Lymphocytes # (Manual) Monocytes # (Manual) Eosinophils # (Manual) Basophils # (Manual) PT INR Fibrinogen dRVVT Confirm Interp Factor V Activity POC ABG pH POC ABG pCO2 POC ABG pO2 ABG pO2 ABG HCO3 ABG Base Excess ABG Hemoglobin Oxyhemoglobin Sodium Potassium Chloride Carbon Dioxide BUN Creatinine Glucose POC Glucose 140 H 142 H 112 H Lactic Acid Calcium Phosphorus Magnesium Direct Bilirubin AST ALT Alkaline Phosphatase Lactate Dehydrogenase Troponin T C-Reactive Protein Total Protein Albumin Prealbumin Triglycerides Cholesterol LDL Cholesterol Direct HDL Cholesterol PTH Intact Urine pH Urine WBC (Auto) Urine Creatinine Urine Total Protein Fluid Total Protein Vancomycin Trough Rheumatoid Factor Complement C4 Miscellaneous Test Crossmatch 01/02/17 01/02/17 01/02/17 04:56 06:00 11:37 WBC RBC Hgb Hct MCV MCH MCHC RDW Plt Count Lymph % (Auto) [place] % (Auto) Lymph # [place] # Baso # Seg Neutrophils % Seg Neuts % (Manual) Lymphocytes % (Manual) Monocytes % (Manual) Eosinophils % (Manual) Basophils % (Manual) Nucleated RBC % Seg Neutrophils # Seg Neutrophils # Man Lymphocytes # (Manual) Monocytes # (Manual) Eosinophils # (Manual) Basophils # (Manual) PT INR Fibrinogen dRVVT Confirm Interp Factor V Activity POC ABG pH POC ABG pCO2 POC ABG pO2 ABG pO2 ABG HCO3 ABG Base Excess ABG Hemoglobin Oxyhemoglobin Sodium Potassium Chloride Carbon Dioxide BUN 88 H Creatinine 1.7 H Glucose 113 H POC Glucose 136 H 200 H Lactic Acid Calcium Phosphorus Magnesium Direct Bilirubin AST ALT Alkaline Phosphatase Lactate Dehydrogenase Troponin T C-Reactive Protein Total Protein Albumin Prealbumin Triglycerides Cholesterol LDL Cholesterol Direct HDL Cholesterol PTH Intact Urine pH Urine WBC (Auto) Urine Creatinine Urine Total Protein Fluid Total Protein Vancomycin Trough Rheumatoid Factor Complement C4 Miscellaneous Test Crossmatch 01/02/17 01/02/17 01/03/17 17:42 22:52 04:54 WBC RBC Hgb Hct MCV MCH MCHC RDW Plt Count Lymph % (Auto) [place] % (Auto) Lymph # [place] # Baso # Seg Neutrophils % Seg Neuts % (Manual) Lymphocytes % (Manual) Monocytes % (Manual) Eosinophils % (Manual) Basophils % (Manual) Nucleated RBC % Seg Neutrophils # Seg Neutrophils # Man Lymphocytes # (Manual) Monocytes # (Manual) Eosinophils # (Manual) Basophils # (Manual) PT INR Fibrinogen dRVVT Confirm Interp Factor V Activity POC ABG pH POC ABG pCO2 POC ABG pO2 ABG pO2 ABG HCO3 ABG Base Excess ABG Hemoglobin Oxyhemoglobin Sodium Potassium Chloride Carbon Dioxide BUN Creatinine Glucose POC Glucose 112 H 133 H 111 H Lactic Acid Calcium Phosphorus Magnesium Direct Bilirubin AST ALT Alkaline Phosphatase Lactate Dehydrogenase Troponin T C-Reactive Protein Total Protein Albumin Prealbumin Triglycerides Cholesterol LDL Cholesterol Direct HDL Cholesterol PTH Intact Urine pH Urine WBC (Auto) Urine Creatinine Urine Total Protein Fluid Total Protein Vancomycin Trough Rheumatoid Factor Complement C4 Miscellaneous Test Crossmatch 01/03/17 01/03/17 01/03/17 05:00 05:00 14:02 WBC 11.2 H RBC 2.56 L Hgb 7.2 L Hct 22.3 L MCV MCH MCHC RDW 17.3 H Plt Count Lymph % (Auto) [place] % (Auto) 10.0 H Lymph # [place] # 1.1 H Baso # Seg Neutrophils % 70.5 H Seg Neuts % (Manual) Lymphocytes % (Manual) Monocytes % (Manual) Eosinophils % (Manual) Basophils % (Manual) Nucleated RBC % Seg Neutrophils # 7.9 H Seg Neutrophils # Man Lymphocytes # (Manual) Monocytes # (Manual) Eosinophils # (Manual) Basophils # (Manual) PT INR Fibrinogen dRVVT Confirm Interp Factor V Activity POC ABG pH POC ABG pCO2 POC ABG pO2 ABG pO2 ABG HCO3 ABG Base Excess ABG Hemoglobin Oxyhemoglobin Sodium Potassium Chloride Carbon Dioxide BUN 60 H Creatinine 1.3 H Glucose 110 H POC Glucose 119 H Lactic Acid Calcium Phosphorus Magnesium Direct Bilirubin AST ALT Alkaline Phosphatase Lactate Dehydrogenase Troponin T C-Reactive Protein Total Protein Albumin Prealbumin Triglycerides Cholesterol LDL Cholesterol Direct HDL Cholesterol PTH Intact Urine pH Urine WBC (Auto) Urine Creatinine Urine Total Protein Fluid Total Protein Vancomycin Trough Rheumatoid Factor Complement C4 Miscellaneous Test Crossmatch 01/03/17 01/03/17 01/04/17 18:13 23:40 05:57 WBC RBC Hgb Hct MCV MCH MCHC RDW Plt Count Lymph % (Auto) [place] % (Auto) Lymph # [place] # Baso # Seg Neutrophils % Seg Neuts % (Manual) Lymphocytes % (Manual) Monocytes % (Manual) Eosinophils % (Manual) Basophils % (Manual) Nucleated RBC % Seg Neutrophils # Seg Neutrophils # Man Lymphocytes # (Manual) Monocytes # (Manual) Eosinophils # (Manual) Basophils # (Manual) PT INR Fibrinogen dRVVT Confirm Interp Factor V Activity POC ABG pH POC ABG pCO2 POC ABG pO2 ABG pO2 ABG HCO3 ABG Base Excess ABG Hemoglobin Oxyhemoglobin Sodium Potassium Chloride Carbon Dioxide BUN Creatinine Glucose POC Glucose 107 H 129 H 111 H Lactic Acid Calcium Phosphorus Magnesium Direct Bilirubin AST ALT Alkaline Phosphatase Lactate Dehydrogenase Troponin T C-Reactive Protein Total Protein Albumin Prealbumin Triglycerides Cholesterol LDL Cholesterol Direct HDL Cholesterol PTH Intact Urine pH Urine WBC (Auto) Urine Creatinine Urine Total Protein Fluid Total Protein Vancomycin Trough Rheumatoid Factor Complement C4 Miscellaneous Test Crossmatch 01/04/17 01/04/17 01/04/17 12:46 15:27 17:11 WBC RBC Hgb Hct MCV MCH MCHC RDW Plt Count Lymph % (Auto) [place] % (Auto) Lymph # [place] # Baso # Seg Neutrophils % Seg Neuts % (Manual) Lymphocytes % (Manual) Monocytes % (Manual) Eosinophils % (Manual) Basophils % (Manual) Nucleated RBC % Seg Neutrophils # Seg Neutrophils # Man Lymphocytes # (Manual) Monocytes # (Manual) Eosinophils # (Manual) Basophils # (Manual) PT INR Fibrinogen dRVVT Confirm Interp Factor V Activity POC ABG pH POC ABG pCO2 POC ABG pO2 ABG pO2 ABG HCO3 ABG Base Excess ABG Hemoglobin Oxyhemoglobin Sodium Potassium Chloride Carbon Dioxide BUN 43 H Creatinine Glucose 124 H POC Glucose 159 H 125 H Lactic Acid Calcium 8.0 L Phosphorus 2.10 L Magnesium Direct Bilirubin AST ALT Alkaline Phosphatase Lactate Dehydrogenase Troponin T C-Reactive Protein Total Protein Albumin Prealbumin Triglycerides Cholesterol LDL Cholesterol Direct HDL Cholesterol PTH Intact Urine pH Urine WBC (Auto) Urine Creatinine Urine Total Protein Fluid Total Protein Vancomycin Trough Rheumatoid Factor Complement C4 Miscellaneous Test Crossmatch 01/04/17 01/05/17 01/05/17 23:31 04:00 05:46 WBC RBC Hgb Hct MCV MCH MCHC RDW Plt Count Lymph % (Auto) [place] % (Auto) Lymph # [place] # Baso # Seg Neutrophils % Seg Neuts % (Manual) Lymphocytes % (Manual) Monocytes % (Manual) Eosinophils % (Manual) Basophils % (Manual) Nucleated RBC % Seg Neutrophils # Seg Neutrophils # Man Lymphocytes # (Manual) Monocytes # (Manual) Eosinophils # (Manual) Basophils # (Manual) PT INR Fibrinogen dRVVT Confirm Interp Factor V Activity POC ABG pH POC ABG pCO2 POC ABG pO2 ABG pO2 ABG HCO3 ABG Base Excess ABG Hemoglobin Oxyhemoglobin Sodium Potassium Chloride Carbon Dioxide BUN 52 H Creatinine 1.3 H Glucose 113 H POC Glucose 123 H 118 H Lactic Acid Calcium Phosphorus 2.40 L Magnesium Direct Bilirubin AST ALT Alkaline Phosphatase Lactate Dehydrogenase Troponin T C-Reactive Protein Total Protein Albumin Prealbumin Triglycerides Cholesterol LDL Cholesterol Direct HDL Cholesterol PTH Intact Urine pH Urine WBC (Auto) Urine Creatinine Urine Total Protein Fluid Total Protein Vancomycin Trough Rheumatoid Factor Complement C4 Miscellaneous Test Crossmatch 01/05/17 01/05/17 01/05/17 11:41 17:48 23:27 WBC RBC Hgb Hct MCV MCH MCHC RDW Plt Count Lymph % (Auto) [place] % (Auto) Lymph # [place] # Baso # Seg Neutrophils % Seg Neuts % (Manual) Lymphocytes % (Manual) Monocytes % (Manual) Eosinophils % (Manual) Basophils % (Manual) Nucleated RBC % Seg Neutrophils # Seg Neutrophils # Man Lymphocytes # (Manual) Monocytes # (Manual) Eosinophils # (Manual) Basophils # (Manual) PT INR Fibrinogen dRVVT Confirm Interp Factor V Activity POC ABG pH POC ABG pCO2 POC ABG pO2 ABG pO2 ABG HCO3 ABG Base Excess ABG Hemoglobin Oxyhemoglobin Sodium Potassium Chloride Carbon Dioxide BUN Creatinine Glucose POC Glucose 163 H 142 H 155 H Lactic Acid Calcium Phosphorus Magnesium Direct Bilirubin AST ALT Alkaline Phosphatase Lactate Dehydrogenase Troponin T C-Reactive Protein Total Protein Albumin Prealbumin Triglycerides Cholesterol LDL Cholesterol Direct HDL Cholesterol PTH Intact Urine pH Urine WBC (Auto) Urine Creatinine Urine Total Protein Fluid Total Protein Vancomycin Trough Rheumatoid Factor Complement C4 Miscellaneous Test Crossmatch 01/06/17 01/06/17 01/06/17 05:20 07:35 11:18 WBC RBC Hgb Hct MCV MCH MCHC RDW Plt Count Lymph % (Auto) [place] % (Auto) Lymph # [place] # Baso # Seg Neutrophils % Seg Neuts % (Manual) Lymphocytes % (Manual) Monocytes % (Manual) Eosinophils % (Manual) Basophils % (Manual) Nucleated RBC % Seg Neutrophils # Seg Neutrophils # Man Lymphocytes # (Manual) Monocytes # (Manual) Eosinophils # (Manual) Basophils # (Manual) PT INR Fibrinogen dRVVT Confirm Interp Factor V Activity POC ABG pH POC ABG pCO2 POC ABG pO2 ABG pO2 ABG HCO3 ABG Base Excess ABG Hemoglobin Oxyhemoglobin Sodium Potassium Chloride Carbon Dioxide BUN 74 H Creatinine 1.6 H Glucose 135 H POC Glucose 108 H 149 H Lactic Acid Calcium Phosphorus Magnesium Direct Bilirubin AST ALT Alkaline Phosphatase Lactate Dehydrogenase Troponin T C-Reactive Protein Total Protein Albumin Prealbumin Triglycerides Cholesterol LDL Cholesterol Direct HDL Cholesterol PTH Intact Urine pH Urine WBC (Auto) Urine Creatinine Urine Total Protein Fluid Total Protein Vancomycin Trough Rheumatoid Factor Complement C4 Miscellaneous Test Crossmatch 01/06/17 01/07/17 01/07/17 17:17 00:23 05:31 WBC RBC Hgb Hct MCV MCH MCHC RDW Plt Count Lymph % (Auto) [place] % (Auto) Lymph # [place] # Baso # Seg Neutrophils % Seg Neuts % (Manual) Lymphocytes % (Manual) Monocytes % (Manual) Eosinophils % (Manual) Basophils % (Manual) Nucleated RBC % Seg Neutrophils # Seg Neutrophils # Man Lymphocytes # (Manual) Monocytes # (Manual) Eosinophils # (Manual) Basophils # (Manual) PT INR Fibrinogen dRVVT Confirm Interp Factor V Activity POC ABG pH POC ABG pCO2 POC ABG pO2 ABG pO2 ABG HCO3 ABG Base Excess ABG Hemoglobin Oxyhemoglobin Sodium Potassium Chloride Carbon Dioxide BUN Creatinine Glucose POC Glucose 146 H 165 H 153 H Lactic Acid Calcium Phosphorus Magnesium Direct Bilirubin AST ALT Alkaline Phosphatase Lactate Dehydrogenase Troponin T C-Reactive Protein Total Protein Albumin Prealbumin Triglycerides Cholesterol LDL Cholesterol Direct HDL Cholesterol PTH Intact Urine pH Urine WBC (Auto) Urine Creatinine Urine Total Protein Fluid Total Protein Vancomycin Trough Rheumatoid Factor Complement C4 Miscellaneous Test Crossmatch 01/07/17 01/07/17 01/07/17 06:00 11:39 17:11 WBC RBC Hgb Hct MCV MCH MCHC RDW Plt Count Lymph % (Auto) [place] % (Auto) Lymph # [place] # Baso # Seg Neutrophils % Seg Neuts % (Manual) Lymphocytes % (Manual) Monocytes % (Manual) Eosinophils % (Manual) Basophils % (Manual) Nucleated RBC % Seg Neutrophils # Seg Neutrophils # Man Lymphocytes # (Manual) Monocytes # (Manual) Eosinophils # (Manual) Basophils # (Manual) PT INR Fibrinogen dRVVT Confirm Interp Factor V Activity POC ABG pH POC ABG pCO2 POC ABG pO2 ABG pO2 ABG HCO3 ABG Base Excess ABG Hemoglobin Oxyhemoglobin Sodium Potassium Chloride Carbon Dioxide BUN 42 H Creatinine Glucose 175 H POC Glucose 163 H 163 H Lactic Acid Calcium Phosphorus 2.40 L D Magnesium Direct Bilirubin AST ALT Alkaline Phosphatase Lactate Dehydrogenase Troponin T C-Reactive Protein Total Protein Albumin Prealbumin Triglycerides Cholesterol LDL Cholesterol Direct HDL Cholesterol PTH Intact Urine pH Urine WBC (Auto) Urine Creatinine Urine Total Protein Fluid Total Protein Vancomycin Trough Rheumatoid Factor Complement C4 Miscellaneous Test Crossmatch 01/07/17 01/08/17 01/08/17 23:40 05:00 05:00 WBC 27.4 H RBC 2.27 L Hgb 6.1 L Hct 20.4 L MCV MCH 27 L MCHC RDW 17.8 H Plt Count Lymph % (Auto) [place] % (Auto) Lymph # [place] # Baso # Seg Neutrophils % Seg Neuts % (Manual) Lymphocytes % (Manual) Monocytes % (Manual) Eosinophils % (Manual) Basophils % (Manual) Nucleated RBC % Seg Neutrophils # Seg Neutrophils # Man Lymphocytes # (Manual) Monocytes # (Manual) Eosinophils # (Manual) Basophils # (Manual) PT INR Fibrinogen dRVVT Confirm Interp Factor V Activity POC ABG pH POC ABG pCO2 POC ABG pO2 ABG pO2 ABG HCO3 ABG Base Excess ABG Hemoglobin Oxyhemoglobin Sodium Potassium Chloride Carbon Dioxide 16 L D BUN 62 H Creatinine 1.6 H D Glucose 103 H POC Glucose 135 H Lactic Acid Calcium Phosphorus Magnesium Direct Bilirubin AST ALT Alkaline Phosphatase Lactate Dehydrogenase Troponin T C-Reactive Protein Total Protein Albumin Prealbumin Triglycerides Cholesterol LDL Cholesterol Direct HDL Cholesterol PTH Intact Urine pH Urine WBC (Auto) Urine Creatinine Urine Total Protein Fluid Total Protein Vancomycin Trough Rheumatoid Factor Complement C4 Miscellaneous Test Crossmatch 01/08/17 01/08/17 01/08/17 05:25 10:37 10:37 WBC RBC Hgb Hct MCV MCH MCHC RDW Plt Count Lymph % (Auto) [place] % (Auto) Lymph # [place] # Baso # Seg Neutrophils % Seg Neuts % (Manual) Lymphocytes % (Manual) Monocytes % (Manual) Eosinophils % (Manual) Basophils % (Manual) Nucleated RBC % Seg Neutrophils # Seg Neutrophils # Man Lymphocytes # (Manual) Monocytes # (Manual) Eosinophils # (Manual) Basophils # (Manual) PT INR Fibrinogen dRVVT Confirm Interp Factor V Activity POC ABG pH POC ABG pCO2 POC ABG pO2 ABG pO2 ABG HCO3 ABG Base Excess ABG Hemoglobin Oxyhemoglobin Sodium Potassium Chloride Carbon Dioxide BUN Creatinine Glucose POC Glucose 106 H Lactic Acid Calcium Phosphorus Magnesium Direct Bilirubin AST ALT Alkaline Phosphatase Lactate Dehydrogenase Troponin T C-Reactive Protein 24.40 H Total Protein Albumin Prealbumin Triglycerides Cholesterol LDL Cholesterol Direct HDL Cholesterol PTH Intact Urine pH Urine WBC (Auto) Urine Creatinine Urine Total Protein Fluid Total Protein Vancomycin Trough Rheumatoid Factor Complement C4 Miscellaneous Test Crossmatch See Detail 01/08/17 01/08/17 01/08/17 10:37 11:33 15:15 WBC RBC Hgb Hct MCV MCH MCHC RDW Plt Count Lymph % (Auto) [place] % (Auto) Lymph # [place] # Baso # Seg Neutrophils % Seg Neuts % (Manual) Lymphocytes % (Manual) Monocytes % (Manual) Eosinophils % (Manual) Basophils % (Manual) Nucleated RBC % Seg Neutrophils # Seg Neutrophils # Man Lymphocytes # (Manual) Monocytes # (Manual) Eosinophils # (Manual) Basophils # (Manual) PT INR Fibrinogen dRVVT Confirm Interp Factor V Activity POC ABG pH POC ABG pCO2 POC ABG pO2 ABG pO2 ABG HCO3 ABG Base Excess ABG Hemoglobin Oxyhemoglobin Sodium Potassium Chloride Carbon Dioxide BUN Creatinine Glucose POC Glucose 157 H Lactic Acid 9.70 H* 9.10 H* Calcium Phosphorus Magnesium Direct Bilirubin AST ALT Alkaline Phosphatase Lactate Dehydrogenase Troponin T C-Reactive Protein Total Protein Albumin Prealbumin Triglycerides Cholesterol LDL Cholesterol Direct HDL Cholesterol PTH Intact Urine pH Urine WBC (Auto) Urine Creatinine Urine Total Protein Fluid Total Protein Vancomycin Trough Rheumatoid Factor Complement C4 Miscellaneous Test Crossmatch 01/08/17 01/08/17 01/09/17 17:19 23:12 04:40 WBC RBC Hgb Hct MCV MCH MCHC RDW Plt Count Lymph % (Auto) [place] % (Auto) Lymph # [place] # Baso # Seg Neutrophils % Seg Neuts % (Manual) Lymphocytes % (Manual) Monocytes % (Manual) Eosinophils % (Manual) Basophils % (Manual) Nucleated RBC % Seg Neutrophils # Seg Neutrophils # Man Lymphocytes # (Manual) Monocytes # (Manual) Eosinophils # (Manual) Basophils # (Manual) PT INR Fibrinogen dRVVT Confirm Interp Factor V Activity POC ABG pH POC ABG pCO2 POC ABG pO2 ABG pO2 ABG HCO3 ABG Base Excess ABG Hemoglobin Oxyhemoglobin Sodium 147 H Potassium Chloride Carbon Dioxide BUN 82 H Creatinine 1.8 H Glucose 137 H POC Glucose 164 H 157 H Lactic Acid Calcium Phosphorus Magnesium Direct Bilirubin AST ALT Alkaline Phosphatase Lactate Dehydrogenase Troponin T C-Reactive Protein Total Protein Albumin Prealbumin Triglycerides Cholesterol LDL Cholesterol Direct HDL Cholesterol PTH Intact Urine pH Urine WBC (Auto) Urine Creatinine Urine Total Protein Fluid Total Protein Vancomycin Trough Rheumatoid Factor Complement C4 Miscellaneous Test Crossmatch 01/09/17 01/09/17 01/09/17 05:42 08:22 10:57 WBC RBC Hgb Hct MCV MCH MCHC RDW Plt Count Lymph % (Auto) [place] % (Auto) Lymph # [place] # Baso # Seg Neutrophils % Seg Neuts % (Manual) Lymphocytes % (Manual) Monocytes % (Manual) Eosinophils % (Manual) Basophils % (Manual) Nucleated RBC % Seg Neutrophils # Seg Neutrophils # Man Lymphocytes # (Manual) Monocytes # (Manual) Eosinophils # (Manual) Basophils # (Manual) PT INR Fibrinogen dRVVT Confirm Interp Factor V Activity POC ABG pH POC ABG pCO2 POC ABG pO2 ABG pO2 ABG HCO3 ABG Base Excess ABG Hemoglobin Oxyhemoglobin Sodium Potassium Chloride Carbon Dioxide BUN Creatinine Glucose POC Glucose 156 H 122 H Lactic Acid 2.30 H* Calcium Phosphorus Magnesium Direct Bilirubin AST ALT Alkaline Phosphatase Lactate Dehydrogenase Troponin T C-Reactive Protein Total Protein Albumin Prealbumin Triglycerides Cholesterol LDL Cholesterol Direct HDL Cholesterol PTH Intact Urine pH Urine WBC (Auto) Urine Creatinine Urine Total Protein Fluid Total Protein Vancomycin Trough Rheumatoid Factor Complement C4 Miscellaneous Test Crossmatch 01/09/17 01/09/17 01/09/17 13:30 17:14 18:45 WBC RBC Hgb Hct MCV MCH MCHC RDW Plt Count Lymph % (Auto) [place] % (Auto) Lymph # [place] # Baso # Seg Neutrophils % Seg Neuts % (Manual) Lymphocytes % (Manual) Monocytes % (Manual) Eosinophils % (Manual) Basophils % (Manual) Nucleated RBC % Seg Neutrophils # Seg Neutrophils # Man Lymphocytes # (Manual) Monocytes # (Manual) Eosinophils # (Manual) Basophils # (Manual) PT INR Fibrinogen dRVVT Confirm Interp Factor V Activity POC ABG pH POC ABG pCO2 POC ABG pO2 ABG pO2 ABG HCO3 ABG Base Excess ABG Hemoglobin Oxyhemoglobin Sodium Potassium Chloride Carbon Dioxide BUN Creatinine Glucose POC Glucose 127 H Lactic Acid Calcium Phosphorus Magnesium Direct Bilirubin AST ALT Alkaline Phosphatase Lactate Dehydrogenase Troponin T C-Reactive Protein 24.70 H Total Protein Albumin Prealbumin Triglycerides Cholesterol LDL Cholesterol Direct HDL Cholesterol PTH Intact Urine pH Urine WBC (Auto) Urine Creatinine Urine Total Protein Fluid Total Protein Vancomycin Trough Rheumatoid Factor Complement C4 Miscellaneous Test Flexitest 1 H Crossmatch 01/10/17 01/10/17 01/10/17 01:21 04:00 04:00 WBC 18.1 H RBC 3.22 L Hgb 8.8 L Hct 27.0 L D MCV MCH 27 L MCHC RDW 17.0 H Plt Count Lymph % (Auto) [place] % (Auto) Lymph # [place] # Baso # Seg Neutrophils % Seg Neuts % (Manual) Lymphocytes % (Manual) Monocytes % (Manual) Eosinophils % (Manual) Basophils % (Manual) Nucleated RBC % Seg Neutrophils # Seg Neutrophils # Man Lymphocytes # (Manual) Monocytes # (Manual) Eosinophils # (Manual) Basophils # (Manual) PT INR Fibrinogen dRVVT Confirm Interp Factor V Activity POC ABG pH POC ABG pCO2 POC ABG pO2 ABG pO2 ABG HCO3 ABG Base Excess ABG Hemoglobin Oxyhemoglobin Sodium Potassium Chloride Carbon Dioxide BUN 59 H Creatinine 1.3 H Glucose 122 H POC Glucose 160 H Lactic Acid Calcium Phosphorus Magnesium Direct Bilirubin AST ALT Alkaline Phosphatase Lactate Dehydrogenase Troponin T C-Reactive Protein Total Protein Albumin Prealbumin Triglycerides Cholesterol LDL Cholesterol Direct HDL Cholesterol PTH Intact Urine pH Urine WBC (Auto) Urine Creatinine Urine Total Protein Fluid Total Protein Vancomycin Trough Rheumatoid Factor Complement C4 Miscellaneous Test Crossmatch 01/10/17 01/10/17 01/10/17 05:36 12:14 17:55 WBC RBC Hgb Hct MCV MCH MCHC RDW Plt Count Lymph % (Auto) [place] % (Auto) Lymph # [place] # Baso # Seg Neutrophils % Seg Neuts % (Manual) Lymphocytes % (Manual) Monocytes % (Manual) Eosinophils % (Manual) Basophils % (Manual) Nucleated RBC % Seg Neutrophils # Seg Neutrophils # Man Lymphocytes # (Manual) Monocytes # (Manual) Eosinophils # (Manual) Basophils # (Manual) PT INR Fibrinogen dRVVT Confirm Interp Factor V Activity POC ABG pH POC ABG pCO2 POC ABG pO2 ABG pO2 ABG HCO3 ABG Base Excess ABG Hemoglobin Oxyhemoglobin Sodium Potassium Chloride Carbon Dioxide BUN Creatinine Glucose POC Glucose 163 H 120 H 144 H Lactic Acid Calcium Phosphorus Magnesium Direct Bilirubin AST ALT Alkaline Phosphatase Lactate Dehydrogenase Troponin T C-Reactive Protein Total Protein Albumin Prealbumin Triglycerides Cholesterol LDL Cholesterol Direct HDL Cholesterol PTH Intact Urine pH Urine WBC (Auto) Urine Creatinine Urine Total Protein Fluid Total Protein Vancomycin Trough Rheumatoid Factor Complement C4 Miscellaneous Test Crossmatch 01/11/17 01/11/17 01/11/17 00:09 04:00 04:00 WBC 15.8 H RBC 3.04 L Hgb 8.2 L Hct 25.5 L MCV MCH 27 L MCHC RDW 17.3 H Plt Count Lymph % (Auto) [place] % (Auto) Lymph # [place] # Baso # Seg Neutrophils % Seg Neuts % (Manual) Lymphocytes % (Manual) Monocytes % (Manual) Eosinophils % (Manual) Basophils % (Manual) Nucleated RBC % Seg Neutrophils # Seg Neutrophils # Man Lymphocytes # (Manual) Monocytes # (Manual) Eosinophils # (Manual) Basophils # (Manual) PT INR Fibrinogen dRVVT Confirm Interp Factor V Activity POC ABG pH POC ABG pCO2 POC ABG pO2 ABG pO2 ABG HCO3 ABG Base Excess ABG Hemoglobin Oxyhemoglobin Sodium Potassium Chloride Carbon Dioxide BUN 78 H Creatinine 1.6 H Glucose 109 H POC Glucose 122 H Lactic Acid Calcium Phosphorus Magnesium Direct Bilirubin AST ALT Alkaline Phosphatase Lactate Dehydrogenase Troponin T C-Reactive Protein Total Protein Albumin Prealbumin Triglycerides Cholesterol LDL Cholesterol Direct HDL Cholesterol PTH Intact Urine pH Urine WBC (Auto) Urine Creatinine Urine Total Protein Fluid Total Protein Vancomycin Trough Rheumatoid Factor Complement C4 Miscellaneous Test Crossmatch 01/11/17 01/11/17 01/11/17 12:46 18:23 23:42 WBC RBC Hgb Hct MCV MCH MCHC RDW Plt Count Lymph % (Auto) [place] % (Auto) Lymph # [place] # Baso # Seg Neutrophils % Seg Neuts % (Manual) Lymphocytes % (Manual) Monocytes % (Manual) Eosinophils % (Manual) Basophils % (Manual) Nucleated RBC % Seg Neutrophils # Seg Neutrophils # Man Lymphocytes # (Manual) Monocytes # (Manual) Eosinophils # (Manual) Basophils # (Manual) PT INR Fibrinogen dRVVT Confirm Interp Factor V Activity POC ABG pH POC ABG pCO2 POC ABG pO2 ABG pO2 ABG HCO3 ABG Base Excess ABG Hemoglobin Oxyhemoglobin Sodium Potassium Chloride Carbon Dioxide BUN Creatinine Glucose POC Glucose 148 H 125 H 124 H Lactic Acid Calcium Phosphorus Magnesium Direct Bilirubin AST ALT Alkaline Phosphatase Lactate Dehydrogenase Troponin T C-Reactive Protein Total Protein Albumin Prealbumin Triglycerides Cholesterol LDL Cholesterol Direct HDL Cholesterol PTH Intact Urine pH Urine WBC (Auto) Urine Creatinine Urine Total Protein Fluid Total Protein Vancomycin Trough Rheumatoid Factor Complement C4 Miscellaneous Test Crossmatch 01/12/17 01/12/17 01/12/17 04:30 04:30 05:47 WBC 15.8 H RBC 3.31 L Hgb 8.9 L Hct 27.9 L MCV MCH 27 L MCHC RDW 17.4 H Plt Count Lymph % (Auto) [place] % (Auto) Lymph # [place] # Baso # Seg Neutrophils % Seg Neuts % (Manual) Lymphocytes % (Manual) Monocytes % (Manual) Eosinophils % (Manual) Basophils % (Manual) Nucleated RBC % Seg Neutrophils # Seg Neutrophils # Man Lymphocytes # (Manual) Monocytes # (Manual) Eosinophils # (Manual) Basophils # (Manual) PT INR Fibrinogen dRVVT Confirm Interp Factor V Activity POC ABG pH POC ABG pCO2 POC ABG pO2 ABG pO2 ABG HCO3 ABG Base Excess ABG Hemoglobin Oxyhemoglobin Sodium Potassium Chloride Carbon Dioxide BUN 57 H Creatinine Glucose 121 H POC Glucose 110 H Lactic Acid Calcium Phosphorus 2.10 L Magnesium Direct Bilirubin AST ALT Alkaline Phosphatase Lactate Dehydrogenase Troponin T C-Reactive Protein Total Protein Albumin Prealbumin Triglycerides Cholesterol LDL Cholesterol Direct HDL Cholesterol PTH Intact Urine pH Urine WBC (Auto) Urine Creatinine Urine Total Protein Fluid Total Protein Vancomycin Trough Rheumatoid Factor Complement C4 Miscellaneous Test Crossmatch 01/12/17 01/12/17 01/12/17 11:35 17:45 23:14 WBC RBC Hgb Hct MCV MCH MCHC RDW Plt Count Lymph % (Auto) [place] % (Auto) Lymph # [place] # Baso # Seg Neutrophils % Seg Neuts % (Manual) Lymphocytes % (Manual) Monocytes % (Manual) Eosinophils % (Manual) Basophils % (Manual) Nucleated RBC % Seg Neutrophils # Seg Neutrophils # Man Lymphocytes # (Manual) Monocytes # (Manual) Eosinophils # (Manual) Basophils # (Manual) PT INR Fibrinogen dRVVT Confirm Interp Factor V Activity POC ABG pH POC ABG pCO2 POC ABG pO2 ABG pO2 ABG HCO3 ABG Base Excess ABG Hemoglobin Oxyhemoglobin Sodium Potassium Chloride Carbon Dioxide BUN Creatinine Glucose POC Glucose 146 H 117 H 123 H Lactic Acid Calcium Phosphorus Magnesium Direct Bilirubin AST ALT Alkaline Phosphatase Lactate Dehydrogenase Troponin T C-Reactive Protein Total Protein Albumin Prealbumin Triglycerides Cholesterol LDL Cholesterol Direct HDL Cholesterol PTH Intact Urine pH Urine WBC (Auto) Urine Creatinine Urine Total Protein Fluid Total Protein Vancomycin Trough Rheumatoid Factor Complement C4 Miscellaneous Test Crossmatch 01/13/17 01/13/17 01/13/17 05:32 06:00 12:10 WBC RBC Hgb Hct MCV MCH MCHC RDW Plt Count Lymph % (Auto) [place] % (Auto) Lymph # [place] # Baso # Seg Neutrophils % Seg Neuts % (Manual) Lymphocytes % (Manual) Monocytes % (Manual) Eosinophils % (Manual) Basophils % (Manual) Nucleated RBC % Seg Neutrophils # Seg Neutrophils # Man Lymphocytes # (Manual) Monocytes # (Manual) Eosinophils # (Manual) Basophils # (Manual) PT INR Fibrinogen dRVVT Confirm Interp Factor V Activity POC ABG pH POC ABG pCO2 POC ABG pO2 ABG pO2 ABG HCO3 ABG Base Excess ABG Hemoglobin Oxyhemoglobin Sodium Potassium Chloride Carbon Dioxide BUN 80 H Creatinine 1.4 H Glucose 106 H POC Glucose 106 H Lactic Acid Calcium Phosphorus Magnesium Direct Bilirubin AST ALT Alkaline Phosphatase Lactate Dehydrogenase Troponin T C-Reactive Protein Total Protein Albumin Prealbumin Triglycerides Cholesterol LDL Cholesterol Direct HDL Cholesterol PTH Intact Urine pH Urine WBC (Auto) Urine Creatinine Urine Total Protein Fluid Total Protein 3.0 L Vancomycin Trough Rheumatoid Factor Complement C4 Miscellaneous Test Crossmatch 01/13/17 01/13/17 01/13/17 12:17 15:50 17:30 WBC RBC Hgb Hct MCV MCH MCHC RDW Plt Count Lymph % (Auto) [place] % (Auto) Lymph # [place] # Baso # Seg Neutrophils % Seg Neuts % (Manual) Lymphocytes % (Manual) Monocytes % (Manual) Eosinophils % (Manual) Basophils % (Manual) Nucleated RBC % Seg Neutrophils # Seg Neutrophils # Man Lymphocytes # (Manual) Monocytes # (Manual) Eosinophils # (Manual) Basophils # (Manual) PT 15.4 H INR 1.16 H Fibrinogen dRVVT Confirm Interp Factor V Activity POC ABG pH POC ABG pCO2 POC ABG pO2 ABG pO2 ABG HCO3 ABG Base Excess ABG Hemoglobin Oxyhemoglobin Sodium Potassium Chloride Carbon Dioxide BUN Creatinine Glucose POC Glucose 168 H 110 H Lactic Acid Calcium Phosphorus Magnesium Direct Bilirubin AST ALT Alkaline Phosphatase Lactate Dehydrogenase Troponin T C-Reactive Protein Total Protein Albumin Prealbumin Triglycerides Cholesterol LDL Cholesterol Direct HDL Cholesterol PTH Intact Urine pH Urine WBC (Auto) Urine Creatinine Urine Total Protein Fluid Total Protein Vancomycin Trough Rheumatoid Factor Complement C4 Miscellaneous Test Crossmatch 01/13/17 01/14/17 01/14/17 23:42 05:24 05:30 WBC RBC Hgb Hct MCV MCH MCHC RDW Plt Count Lymph % (Auto) [place] % (Auto) Lymph # [place] # Baso # Seg Neutrophils % Seg Neuts % (Manual) Lymphocytes % (Manual) Monocytes % (Manual) Eosinophils % (Manual) Basophils % (Manual) Nucleated RBC % Seg Neutrophils # Seg Neutrophils # Man Lymphocytes # (Manual) Monocytes # (Manual) Eosinophils # (Manual) Basophils # (Manual) PT INR Fibrinogen dRVVT Confirm Interp Factor V Activity POC ABG pH POC ABG pCO2 POC ABG pO2 ABG pO2 ABG HCO3 ABG Base Excess ABG Hemoglobin Oxyhemoglobin Sodium Potassium Chloride Carbon Dioxide BUN 58 H Creatinine Glucose 114 H POC Glucose 155 H 121 H Lactic Acid Calcium Phosphorus Magnesium Direct Bilirubin AST ALT Alkaline Phosphatase Lactate Dehydrogenase Troponin T C-Reactive Protein Total Protein Albumin Prealbumin Triglycerides Cholesterol LDL Cholesterol Direct HDL Cholesterol PTH Intact Urine pH Urine WBC (Auto) Urine Creatinine Urine Total Protein Fluid Total Protein Vancomycin Trough Rheumatoid Factor Complement C4 Miscellaneous Test Crossmatch 01/14/17 01/14/17 01/15/17 12:48 17:36 00:15 WBC RBC Hgb Hct MCV MCH MCHC RDW Plt Count Lymph % (Auto) [place] % (Auto) Lymph # [place] # Baso # Seg Neutrophils % Seg Neuts % (Manual) Lymphocytes % (Manual) Monocytes % (Manual) Eosinophils % (Manual) Basophils % (Manual) Nucleated RBC % Seg Neutrophils # Seg Neutrophils # Man Lymphocytes # (Manual) Monocytes # (Manual) Eosinophils # (Manual) Basophils # (Manual) PT INR Fibrinogen dRVVT Confirm Interp Factor V Activity POC ABG pH POC ABG pCO2 POC ABG pO2 ABG pO2 ABG HCO3 ABG Base Excess ABG Hemoglobin Oxyhemoglobin Sodium Potassium Chloride Carbon Dioxide BUN Creatinine Glucose POC Glucose 130 H 135 H 132 H Lactic Acid Calcium Phosphorus Magnesium Direct Bilirubin AST ALT Alkaline Phosphatase Lactate Dehydrogenase Troponin T C-Reactive Protein Total Protein Albumin Prealbumin Triglycerides Cholesterol LDL Cholesterol Direct HDL Cholesterol PTH Intact Urine pH Urine WBC (Auto) Urine Creatinine Urine Total Protein Fluid Total Protein Vancomycin Trough Rheumatoid Factor Complement C4 Miscellaneous Test Crossmatch 01/15/17 01/15/17 01/15/17 05:01 11:55 12:45 WBC 16.2 H RBC 3.00 L Hgb 8.1 L Hct 25.4 L MCV MCH 27 L MCHC RDW 17.6 H Plt Count Lymph % (Auto) 11.7 L [place] % (Auto) 7.8 H Lymph # [place] # 1.3 H Baso # Seg Neutrophils % 80.1 H Seg Neuts % (Manual) Lymphocytes % (Manual) Monocytes % (Manual) Eosinophils % (Manual) Basophils % (Manual) Nucleated RBC % Seg Neutrophils # 13.0 H Seg Neutrophils # Man Lymphocytes # (Manual) Monocytes # (Manual) Eosinophils # (Manual) Basophils # (Manual) PT INR Fibrinogen dRVVT Confirm Interp Factor V Activity POC ABG pH POC ABG pCO2 POC ABG pO2 ABG pO2 ABG HCO3 ABG Base Excess ABG Hemoglobin Oxyhemoglobin Sodium Potassium Chloride Carbon Dioxide BUN Creatinine Glucose POC Glucose 126 H 125 H Lactic Acid Calcium Phosphorus Magnesium Direct Bilirubin AST ALT Alkaline Phosphatase Lactate Dehydrogenase Troponin T C-Reactive Protein Total Protein Albumin Prealbumin Triglycerides Cholesterol LDL Cholesterol Direct HDL Cholesterol PTH Intact Urine pH Urine WBC (Auto) Urine Creatinine Urine Total Protein Fluid Total Protein Vancomycin Trough Rheumatoid Factor Complement C4 Miscellaneous Test Crossmatch 01/15/17 01/15/17 01/15/17 12:45 17:31 23:39 WBC RBC Hgb Hct MCV MCH MCHC RDW Plt Count Lymph % (Auto) [place] % (Auto) Lymph # [place] # Baso # Seg Neutrophils % Seg Neuts % (Manual) Lymphocytes % (Manual) Monocytes % (Manual) Eosinophils % (Manual) Basophils % (Manual) Nucleated RBC % Seg Neutrophils # Seg Neutrophils # Man Lymphocytes # (Manual) Monocytes # (Manual) Eosinophils # (Manual) Basophils # (Manual) PT INR Fibrinogen dRVVT Confirm Interp Factor V Activity POC ABG pH POC ABG pCO2 POC ABG pO2 ABG pO2 ABG HCO3 ABG Base Excess ABG Hemoglobin Oxyhemoglobin Sodium 136 L Potassium Chloride Carbon Dioxide BUN 87 H Creatinine 1.7 H Glucose 108 H POC Glucose 129 H 112 H Lactic Acid Calcium Phosphorus Magnesium Direct Bilirubin AST ALT Alkaline Phosphatase Lactate Dehydrogenase Troponin T C-Reactive Protein Total Protein Albumin Prealbumin Triglycerides Cholesterol LDL Cholesterol Direct HDL Cholesterol PTH Intact Urine pH Urine WBC (Auto) Urine Creatinine Urine Total Protein Fluid Total Protein Vancomycin Trough Rheumatoid Factor Complement C4 Miscellaneous Test Crossmatch 01/16/17 01/16/17 01/16/17 05:23 11:42 12:32 WBC RBC Hgb Hct MCV MCH MCHC RDW Plt Count Lymph % (Auto) [place] % (Auto) Lymph # [place] # Baso # Seg Neutrophils % Seg Neuts % (Manual) Lymphocytes % (Manual) Monocytes % (Manual) Eosinophils % (Manual) Basophils % (Manual) Nucleated RBC % Seg Neutrophils # Seg Neutrophils # Man Lymphocytes # (Manual) Monocytes # (Manual) Eosinophils # (Manual) Basophils # (Manual) PT INR Fibrinogen dRVVT Confirm Interp Factor V Activity POC ABG pH 7.499 H POC ABG pCO2 30.9 L POC ABG pO2 51 L ABG pO2 ABG HCO3 ABG Base Excess ABG Hemoglobin Oxyhemoglobin Sodium Potassium Chloride Carbon Dioxide BUN Creatinine Glucose POC Glucose 118 H 133 H Lactic Acid Calcium Phosphorus Magnesium Direct Bilirubin AST ALT Alkaline Phosphatase Lactate Dehydrogenase Troponin T C-Reactive Protein Total Protein Albumin Prealbumin Triglycerides Cholesterol LDL Cholesterol Direct HDL Cholesterol PTH Intact Urine pH Urine WBC (Auto) Urine Creatinine Urine Total Protein Fluid Total Protein Vancomycin Trough Rheumatoid Factor Complement C4 Miscellaneous Test Crossmatch 01/16/17 01/16/17 01/16/17 17:52 23:57 Unknown WBC RBC Hgb Hct MCV MCH MCHC RDW Plt Count Lymph % (Auto) [place] % (Auto) Lymph # [place] # Baso # Seg Neutrophils % Seg Neuts % (Manual) Lymphocytes % (Manual) Monocytes % (Manual) Eosinophils % (Manual) Basophils % (Manual) Nucleated RBC % Seg Neutrophils # Seg Neutrophils # Man Lymphocytes # (Manual) Monocytes # (Manual) Eosinophils # (Manual) Basophils # (Manual) PT INR Fibrinogen dRVVT Confirm Interp Factor V Activity POC ABG pH POC ABG pCO2 POC ABG pO2 ABG pO2 ABG HCO3 ABG Base Excess ABG Hemoglobin Oxyhemoglobin Sodium 135 L Potassium Chloride Carbon Dioxide BUN 101 H Creatinine 1.8 H Glucose 117 H POC Glucose 130 H 143 H Lactic Acid Calcium Phosphorus 5.80 H Magnesium Direct Bilirubin AST ALT Alkaline Phosphatase Lactate Dehydrogenase Troponin T C-Reactive Protein Total Protein Albumin Prealbumin Triglycerides Cholesterol LDL Cholesterol Direct HDL Cholesterol PTH Intact Urine pH Urine WBC (Auto) Urine Creatinine Urine Total Protein Fluid Total Protein Vancomycin Trough Rheumatoid Factor Complement C4 Miscellaneous Test Crossmatch 01/17/17 01/17/17 01/17/17 05:30 05:46 11:49 WBC RBC Hgb Hct MCV MCH MCHC RDW Plt Count Lymph % (Auto) [place] % (Auto) Lymph # [place] # Baso # Seg Neutrophils % Seg Neuts % (Manual) Lymphocytes % (Manual) Monocytes % (Manual) Eosinophils % (Manual) Basophils % (Manual) Nucleated RBC % Seg Neutrophils # Seg Neutrophils # Man Lymphocytes # (Manual) Monocytes # (Manual) Eosinophils # (Manual) Basophils # (Manual) PT INR Fibrinogen dRVVT Confirm Interp Factor V Activity POC ABG pH POC ABG pCO2 POC ABG pO2 ABG pO2 ABG HCO3 ABG Base Excess ABG Hemoglobin Oxyhemoglobin Sodium 134 L Potassium Chloride 95.8 L Carbon Dioxide BUN 66 H Creatinine 1.3 H Glucose 138 H POC Glucose 147 H 124 H Lactic Acid Calcium Phosphorus Magnesium Direct Bilirubin AST ALT Alkaline Phosphatase 254 H Lactate Dehydrogenase Troponin T C-Reactive Protein Total Protein Albumin 1.3 L Prealbumin Triglycerides Cholesterol LDL Cholesterol Direct HDL Cholesterol PTH Intact Urine pH Urine WBC (Auto) Urine Creatinine Urine Total Protein Fluid Total Protein Vancomycin Trough Rheumatoid Factor Complement C4 Miscellaneous Test Crossmatch 01/17/17 01/17/17 01/18/17 17:30 23:41 05:15 WBC RBC Hgb Hct MCV MCH MCHC RDW Plt Count Lymph % (Auto) [place] % (Auto) Lymph # [place] # Baso # Seg Neutrophils % Seg Neuts % (Manual) Lymphocytes % (Manual) Monocytes % (Manual) Eosinophils % (Manual) Basophils % (Manual) Nucleated RBC % Seg Neutrophils # Seg Neutrophils # Man Lymphocytes # (Manual) Monocytes # (Manual) Eosinophils # (Manual) Basophils # (Manual) PT INR Fibrinogen dRVVT Confirm Interp Factor V Activity POC ABG pH POC ABG pCO2 POC ABG pO2 ABG pO2 ABG HCO3 ABG Base Excess ABG Hemoglobin Oxyhemoglobin Sodium Potassium Chloride Carbon Dioxide BUN 89 H Creatinine 1.7 H Glucose 118 H POC Glucose 137 H 119 H Lactic Acid Calcium Phosphorus Magnesium Direct Bilirubin AST ALT Alkaline Phosphatase Lactate Dehydrogenase Troponin T C-Reactive Protein Total Protein Albumin Prealbumin Triglycerides Cholesterol LDL Cholesterol Direct HDL Cholesterol PTH Intact Urine pH Urine WBC (Auto) Urine Creatinine Urine Total Protein Fluid Total Protein Vancomycin Trough Rheumatoid Factor Complement C4 Miscellaneous Test Crossmatch 01/18/17 01/18/17 01/18/17 05:19 12:16 18:11 WBC RBC Hgb Hct MCV MCH MCHC RDW Plt Count Lymph % (Auto) [place] % (Auto) Lymph # [place] # Baso # Seg Neutrophils % Seg Neuts % (Manual) Lymphocytes % (Manual) Monocytes % (Manual) Eosinophils % (Manual) Basophils % (Manual) Nucleated RBC % Seg Neutrophils # Seg Neutrophils # Man Lymphocytes # (Manual) Monocytes # (Manual) Eosinophils # (Manual) Basophils # (Manual) PT INR Fibrinogen dRVVT Confirm Interp Factor V Activity POC ABG pH POC ABG pCO2 POC ABG pO2 ABG pO2 ABG HCO3 ABG Base Excess ABG Hemoglobin Oxyhemoglobin Sodium Potassium Chloride Carbon Dioxide BUN Creatinine Glucose POC Glucose 134 H 188 H 113 H Lactic Acid Calcium Phosphorus Magnesium Direct Bilirubin AST ALT Alkaline Phosphatase Lactate Dehydrogenase Troponin T C-Reactive Protein Total Protein Albumin Prealbumin Triglycerides Cholesterol LDL Cholesterol Direct HDL Cholesterol PTH Intact Urine pH Urine WBC (Auto) Urine Creatinine Urine Total Protein Fluid Total Protein Vancomycin Trough Rheumatoid Factor Complement C4 Miscellaneous Test Crossmatch 01/19/17 01/19/17 01/19/17 00:00 05:30 05:36 WBC RBC Hgb Hct MCV MCH MCHC RDW Plt Count Lymph % (Auto) [place] % (Auto) Lymph # [place] # Baso # Seg Neutrophils % Seg Neuts % (Manual) Lymphocytes % (Manual) Monocytes % (Manual) Eosinophils % (Manual) Basophils % (Manual) Nucleated RBC % Seg Neutrophils # Seg Neutrophils # Man Lymphocytes # (Manual) Monocytes # (Manual) Eosinophils # (Manual) Basophils # (Manual) PT INR Fibrinogen dRVVT Confirm Interp Factor V Activity POC ABG pH POC ABG pCO2 POC ABG pO2 ABG pO2 ABG HCO3 ABG Base Excess ABG Hemoglobin Oxyhemoglobin Sodium Potassium Chloride Carbon Dioxide BUN 70 H Creatinine 1.5 H Glucose 121 H POC Glucose 137 H 155 H Lactic Acid Calcium Phosphorus 2.10 L D Magnesium Direct Bilirubin AST ALT Alkaline Phosphatase Lactate Dehydrogenase Troponin T C-Reactive Protein Total Protein Albumin Prealbumin Triglycerides Cholesterol LDL Cholesterol Direct HDL Cholesterol PTH Intact Urine pH Urine WBC (Auto) Urine Creatinine Urine Total Protein Fluid Total Protein Vancomycin Trough Rheumatoid Factor Complement C4 Miscellaneous Test Crossmatch 01/19/17 01/19/17 01/19/17 11:59 15:32 17:57 WBC RBC Hgb Hct MCV MCH MCHC RDW Plt Count Lymph % (Auto) [place] % (Auto) Lymph # [place] # Baso # Seg Neutrophils % Seg Neuts % (Manual) Lymphocytes % (Manual) Monocytes % (Manual) Eosinophils % (Manual) Basophils % (Manual) Nucleated RBC % Seg Neutrophils # Seg Neutrophils # Man Lymphocytes # (Manual) Monocytes # (Manual) Eosinophils # (Manual) Basophils # (Manual) PT INR Fibrinogen dRVVT Confirm Interp Factor V Activity POC ABG pH POC ABG pCO2 33.1 L POC ABG pO2 76 L ABG pO2 ABG HCO3 ABG Base Excess ABG Hemoglobin Oxyhemoglobin Sodium Potassium Chloride Carbon Dioxide BUN Creatinine Glucose POC Glucose 156 H 129 H Lactic Acid Calcium Phosphorus Magnesium Direct Bilirubin AST ALT Alkaline Phosphatase Lactate Dehydrogenase Troponin T C-Reactive Protein Total Protein Albumin Prealbumin Triglycerides Cholesterol LDL Cholesterol Direct HDL Cholesterol PTH Intact Urine pH Urine WBC (Auto) Urine Creatinine Urine Total Protein Fluid Total Protein Vancomycin Trough Rheumatoid Factor Complement C4 Miscellaneous Test Crossmatch 01/19/17 01/20/17 01/20/17 23:49 04:00 05:21 WBC RBC Hgb Hct MCV MCH MCHC RDW Plt Count Lymph % (Auto) [place] % (Auto) Lymph # [place] # Baso # Seg Neutrophils % Seg Neuts % (Manual) Lymphocytes % (Manual) Monocytes % (Manual) Eosinophils % (Manual) Basophils % (Manual) Nucleated RBC % Seg Neutrophils # Seg Neutrophils # Man Lymphocytes # (Manual) Monocytes # (Manual) Eosinophils # (Manual) Basophils # (Manual) PT INR Fibrinogen dRVVT Confirm Interp Factor V Activity POC ABG pH POC ABG pCO2 POC ABG pO2 ABG pO2 ABG HCO3 ABG Base Excess ABG Hemoglobin Oxyhemoglobin Sodium Potassium Chloride Carbon Dioxide BUN 96 H Creatinine 1.9 H Glucose 106 H POC Glucose 125 H 130 H Lactic Acid Calcium Phosphorus 2.40 L Magnesium Direct Bilirubin AST ALT Alkaline Phosphatase Lactate Dehydrogenase Troponin T C-Reactive Protein Total Protein Albumin Prealbumin Triglycerides Cholesterol LDL Cholesterol Direct HDL Cholesterol PTH Intact Urine pH Urine WBC (Auto) Urine Creatinine Urine Total Protein Fluid Total Protein Vancomycin Trough Rheumatoid Factor Complement C4 Miscellaneous Test Crossmatch 01/20/17 01/20/17 01/20/17 11:58 12:17 17:26 WBC RBC Hgb Hct MCV MCH MCHC RDW Plt Count Lymph % (Auto) [place] % (Auto) Lymph # [place] # Baso # Seg Neutrophils % Seg Neuts % (Manual) Lymphocytes % (Manual) Monocytes % (Manual) Eosinophils % (Manual) Basophils % (Manual) Nucleated RBC % Seg Neutrophils # Seg Neutrophils # Man Lymphocytes # (Manual) Monocytes # (Manual) Eosinophils # (Manual) Basophils # (Manual) PT INR Fibrinogen dRVVT Confirm Interp Factor V Activity POC ABG pH POC ABG pCO2 POC ABG pO2 70 L ABG pO2 ABG HCO3 ABG Base Excess ABG Hemoglobin Oxyhemoglobin Sodium Potassium Chloride Carbon Dioxide BUN Creatinine Glucose POC Glucose 118 H 154 H Lactic Acid Calcium Phosphorus Magnesium Direct Bilirubin AST ALT Alkaline Phosphatase Lactate Dehydrogenase Troponin T C-Reactive Protein Total Protein Albumin Prealbumin Triglycerides Cholesterol LDL Cholesterol Direct HDL Cholesterol PTH Intact Urine pH Urine WBC (Auto) Urine Creatinine Urine Total Protein Fluid Total Protein Vancomycin Trough Rheumatoid Factor Complement C4 Miscellaneous Test Crossmatch 01/21/17 01/21/17 01/21/17 04:00 04:56 11:46 WBC RBC Hgb Hct MCV MCH MCHC RDW Plt Count Lymph % (Auto) [place] % (Auto) Lymph # [place] # Baso # Seg Neutrophils % Seg Neuts % (Manual) Lymphocytes % (Manual) Monocytes % (Manual) Eosinophils % (Manual) Basophils % (Manual) Nucleated RBC % Seg Neutrophils # Seg Neutrophils # Man Lymphocytes # (Manual) Monocytes # (Manual) Eosinophils # (Manual) Basophils # (Manual) PT INR Fibrinogen dRVVT Confirm Interp Factor V Activity POC ABG pH POC ABG pCO2 POC ABG pO2 ABG pO2 ABG HCO3 ABG Base Excess ABG Hemoglobin Oxyhemoglobin Sodium Potassium 3.5 L Chloride 97.4 L Carbon Dioxide BUN 66 H Creatinine 1.4 H Glucose POC Glucose 116 H 106 H Lactic Acid Calcium Phosphorus 2.10 L Magnesium Direct Bilirubin AST ALT Alkaline Phosphatase Lactate Dehydrogenase Troponin T C-Reactive Protein Total Protein Albumin Prealbumin Triglycerides Cholesterol LDL Cholesterol Direct HDL Cholesterol PTH Intact Urine pH Urine WBC (Auto) Urine Creatinine Urine Total Protein Fluid Total Protein Vancomycin Trough Rheumatoid Factor Complement C4 Miscellaneous Test Crossmatch 01/21/17 01/21/17 01/22/17 17:25 23:49 05:35 WBC RBC Hgb Hct MCV MCH MCHC RDW Plt Count Lymph % (Auto) [place] % (Auto) Lymph # [place] # Baso # Seg Neutrophils % Seg Neuts % (Manual) Lymphocytes % (Manual) Monocytes % (Manual) Eosinophils % (Manual) Basophils % (Manual) Nucleated RBC % Seg Neutrophils # Seg Neutrophils # Man Lymphocytes # (Manual) Monocytes # (Manual) Eosinophils # (Manual) Basophils # (Manual) PT INR Fibrinogen dRVVT Confirm Interp Factor V Activity POC ABG pH POC ABG pCO2 POC ABG pO2 ABG pO2 ABG HCO3 ABG Base Excess ABG Hemoglobin Oxyhemoglobin Sodium Potassium Chloride Carbon Dioxide BUN Creatinine Glucose POC Glucose 106 H 133 H 107 H Lactic Acid Calcium Phosphorus Magnesium Direct Bilirubin AST ALT Alkaline Phosphatase Lactate Dehydrogenase Troponin T C-Reactive Protein Total Protein Albumin Prealbumin Triglycerides Cholesterol LDL Cholesterol Direct HDL Cholesterol PTH Intact Urine pH Urine WBC (Auto) Urine Creatinine Urine Total Protein Fluid Total Protein Vancomycin Trough Rheumatoid Factor Complement C4 Miscellaneous Test Crossmatch 01/22/17 01/22/17 01/22/17 07:20 07:20 11:31 WBC RBC 2.75 L Hgb 7.5 L Hct 22.7 L MCV MCH 27 L MCHC RDW 17.5 H Plt Count Lymph % (Auto) [place] % (Auto) Lymph # [place] # Baso # Seg Neutrophils % Seg Neuts % (Manual) Lymphocytes % (Manual) Monocytes % (Manual) Eosinophils % (Manual) Basophils % (Manual) Nucleated RBC % Seg Neutrophils # Seg Neutrophils # Man Lymphocytes # (Manual) Monocytes # (Manual) Eosinophils # (Manual) Basophils # (Manual) PT INR Fibrinogen dRVVT Confirm Interp Factor V Activity POC ABG pH POC ABG pCO2 POC ABG pO2 ABG pO2 ABG HCO3 ABG Base Excess ABG Hemoglobin Oxyhemoglobin Sodium Potassium 3.3 L Chloride Carbon Dioxide BUN 42 H Creatinine Glucose 105 H POC Glucose 124 H Lactic Acid Calcium Phosphorus 1.70 L Magnesium Direct Bilirubin AST ALT Alkaline Phosphatase Lactate Dehydrogenase Troponin T C-Reactive Protein Total Protein Albumin Prealbumin Triglycerides Cholesterol LDL Cholesterol Direct HDL Cholesterol PTH Intact Urine pH Urine WBC (Auto) Urine Creatinine Urine Total Protein Fluid Total Protein Vancomycin Trough Rheumatoid Factor Complement C4 Miscellaneous Test Crossmatch 01/22/17 01/22/17 01/23/17 17:16 23:35 05:35 WBC RBC Hgb Hct MCV MCH MCHC RDW Plt Count Lymph % (Auto) [place] % (Auto) Lymph # [place] # Baso # Seg Neutrophils % Seg Neuts % (Manual) Lymphocytes % (Manual) Monocytes % (Manual) Eosinophils % (Manual) Basophils % (Manual) Nucleated RBC % Seg Neutrophils # Seg Neutrophils # Man Lymphocytes # (Manual) Monocytes # (Manual) Eosinophils # (Manual) Basophils # (Manual) PT INR Fibrinogen dRVVT Confirm Interp Factor V Activity POC ABG pH POC ABG pCO2 POC ABG pO2 ABG pO2 ABG HCO3 ABG Base Excess ABG Hemoglobin Oxyhemoglobin Sodium Potassium Chloride Carbon Dioxide BUN Creatinine Glucose POC Glucose 135 H 120 H 111 H Lactic Acid Calcium Phosphorus Magnesium Direct Bilirubin AST ALT Alkaline Phosphatase Lactate Dehydrogenase Troponin T C-Reactive Protein Total Protein Albumin Prealbumin Triglycerides Cholesterol LDL Cholesterol Direct HDL Cholesterol PTH Intact Urine pH Urine WBC (Auto) Urine Creatinine Urine Total Protein Fluid Total Protein Vancomycin Trough Rheumatoid Factor Complement C4 Miscellaneous Test Crossmatch 01/23/17 01/23/17 01/23/17 06:10 17:27 23:44 WBC RBC Hgb Hct MCV MCH MCHC RDW Plt Count Lymph % (Auto) [place] % (Auto) Lymph # [place] # Baso # Seg Neutrophils % Seg Neuts % (Manual) Lymphocytes % (Manual) Monocytes % (Manual) Eosinophils % (Manual) Basophils % (Manual) Nucleated RBC % Seg Neutrophils # Seg Neutrophils # Man Lymphocytes # (Manual) Monocytes # (Manual) Eosinophils # (Manual) Basophils # (Manual) PT INR Fibrinogen dRVVT Confirm Interp Factor V Activity POC ABG pH POC ABG pCO2 POC ABG pO2 ABG pO2 ABG HCO3 ABG Base Excess ABG Hemoglobin Oxyhemoglobin Sodium Potassium 3.3 L Chloride Carbon Dioxide BUN 66 H Creatinine 1.3 H Glucose 109 H POC Glucose 120 H 115 H Lactic Acid Calcium Phosphorus 2.20 L D Magnesium Direct Bilirubin AST ALT Alkaline Phosphatase Lactate Dehydrogenase Troponin T C-Reactive Protein Total Protein Albumin Prealbumin Triglycerides Cholesterol LDL Cholesterol Direct HDL Cholesterol PTH Intact Urine pH Urine WBC (Auto) Urine Creatinine Urine Total Protein Fluid Total Protein Vancomycin Trough Rheumatoid Factor Complement C4 Miscellaneous Test Crossmatch 01/24/17 01/24/17 01/24/17 05:19 05:50 12:19 WBC RBC Hgb Hct MCV MCH MCHC RDW Plt Count Lymph % (Auto) [place] % (Auto) Lymph # [place] # Baso # Seg Neutrophils % Seg Neuts % (Manual) Lymphocytes % (Manual) Monocytes % (Manual) Eosinophils % (Manual) Basophils % (Manual) Nucleated RBC % Seg Neutrophils # Seg Neutrophils # Man Lymphocytes # (Manual) Monocytes # (Manual) Eosinophils # (Manual) Basophils # (Manual) PT INR Fibrinogen dRVVT Confirm Interp Factor V Activity POC ABG pH POC ABG pCO2 POC ABG pO2 ABG pO2 ABG HCO3 ABG Base Excess ABG Hemoglobin Oxyhemoglobin Sodium Potassium Chloride Carbon Dioxide BUN 47 H Creatinine Glucose 117 H POC Glucose 126 H 119 H Lactic Acid Calcium Phosphorus 2.30 L Magnesium 1.60 L Direct Bilirubin AST ALT Alkaline Phosphatase Lactate Dehydrogenase Troponin T C-Reactive Protein Total Protein Albumin Prealbumin Triglycerides Cholesterol LDL Cholesterol Direct HDL Cholesterol PTH Intact Urine pH Urine WBC (Auto) Urine Creatinine Urine Total Protein Fluid Total Protein Vancomycin Trough Rheumatoid Factor Complement C4 Miscellaneous Test Crossmatch 01/24/17 01/25/17 01/25/17 17:08 00:37 04:00 WBC RBC Hgb Hct MCV MCH MCHC RDW Plt Count Lymph % (Auto) [place] % (Auto) Lymph # [place] # Baso # Seg Neutrophils % Seg Neuts % (Manual) Lymphocytes % (Manual) Monocytes % (Manual) Eosinophils % (Manual) Basophils % (Manual) Nucleated RBC % Seg Neutrophils # Seg Neutrophils # Man Lymphocytes # (Manual) Monocytes # (Manual) Eosinophils # (Manual) Basophils # (Manual) PT INR Fibrinogen dRVVT Confirm Interp Factor V Activity POC ABG pH POC ABG pCO2 POC ABG pO2 ABG pO2 ABG HCO3 ABG Base Excess ABG Hemoglobin Oxyhemoglobin Sodium Potassium Chloride Carbon Dioxide BUN 72 H Creatinine 1.3 H Glucose POC Glucose 127 H 110 H Lactic Acid Calcium Phosphorus Magnesium Direct Bilirubin AST ALT Alkaline Phosphatase Lactate Dehydrogenase Troponin T C-Reactive Protein Total Protein Albumin Prealbumin Triglycerides Cholesterol LDL Cholesterol Direct HDL Cholesterol PTH Intact Urine pH Urine WBC (Auto) Urine Creatinine Urine Total Protein Fluid Total Protein Vancomycin Trough Rheumatoid Factor Complement C4 Miscellaneous Test Crossmatch 01/25/17 01/25/17 01/25/17 04:00 11:15 13:05 WBC RBC 2.49 L Hgb 6.7 L Hct 20.9 L MCV MCH 27 L MCHC RDW 18.8 H Plt Count Lymph % (Auto) [place] % (Auto) 10.1 H Lymph # [place] # 1.0 H Baso # Seg Neutrophils % Seg Neuts % (Manual) Lymphocytes % (Manual) Monocytes % (Manual) Eosinophils % (Manual) Basophils % (Manual) Nucleated RBC % Seg Neutrophils # Seg Neutrophils # Man Lymphocytes # (Manual) Monocytes # (Manual) Eosinophils # (Manual) Basophils # (Manual) PT INR Fibrinogen dRVVT Confirm Interp Factor V Activity POC ABG pH POC ABG pCO2 POC ABG pO2 ABG pO2 ABG HCO3 ABG Base Excess ABG Hemoglobin Oxyhemoglobin Sodium Potassium Chloride Carbon Dioxide BUN Creatinine Glucose POC Glucose 128 H Lactic Acid Calcium Phosphorus Magnesium Direct Bilirubin AST ALT Alkaline Phosphatase Lactate Dehydrogenase Troponin T C-Reactive Protein Total Protein Albumin Prealbumin Triglycerides Cholesterol LDL Cholesterol Direct HDL Cholesterol PTH Intact Urine pH Urine WBC (Auto) Urine Creatinine Urine Total Protein Fluid Total Protein Vancomycin Trough Rheumatoid Factor Complement C4 Miscellaneous Test Crossmatch See Detail 01/25/17 01/25/17 01/26/17 18:02 23:07 01:20 WBC RBC Hgb Hct MCV MCH MCHC RDW Plt Count Lymph % (Auto) [place] % (Auto) Lymph # [place] # Baso # Seg Neutrophils % Seg Neuts % (Manual) Lymphocytes % (Manual) Monocytes % (Manual) Eosinophils % (Manual) Basophils % (Manual) Nucleated RBC % Seg Neutrophils # Seg Neutrophils # Man Lymphocytes # (Manual) Monocytes # (Manual) Eosinophils # (Manual) Basophils # (Manual) PT INR Fibrinogen dRVVT Confirm Interp Factor V Activity POC ABG pH POC ABG pCO2 POC ABG pO2 ABG pO2 ABG HCO3 ABG Base Excess ABG Hemoglobin Oxyhemoglobin Sodium Potassium Chloride Carbon Dioxide BUN Creatinine Glucose POC Glucose 120 H 123 H 112 H Lactic Acid Calcium Phosphorus Magnesium Direct Bilirubin AST ALT Alkaline Phosphatase Lactate Dehydrogenase Troponin T C-Reactive Protein Total Protein Albumin Prealbumin Triglycerides Cholesterol LDL Cholesterol Direct HDL Cholesterol PTH Intact Urine pH Urine WBC (Auto) Urine Creatinine Urine Total Protein Fluid Total Protein Vancomycin Trough Rheumatoid Factor Complement C4 Miscellaneous Test Crossmatch 01/26/17 01/26/17 01/26/17 04:20 04:20 11:23 WBC 13.1 H RBC 3.28 L Hgb 9.0 L Hct 26.9 L D MCV MCH 27 L MCHC RDW 17.2 H Plt Count Lymph % (Auto) [place] % (Auto) 9.0 H Lymph # [place] # 1.2 H Baso # Seg Neutrophils % 73.1 H Seg Neuts % (Manual) Lymphocytes % (Manual) Monocytes % (Manual) Eosinophils % (Manual) Basophils % (Manual) Nucleated RBC % Seg Neutrophils # 9.6 H Seg Neutrophils # Man Lymphocytes # (Manual) Monocytes # (Manual) Eosinophils # (Manual) Basophils # (Manual) PT INR Fibrinogen dRVVT Confirm Interp Factor V Activity POC ABG pH POC ABG pCO2 POC ABG pO2 ABG pO2 ABG HCO3 ABG Base Excess ABG Hemoglobin Oxyhemoglobin Sodium Potassium Chloride Carbon Dioxide BUN 51 H Creatinine Glucose 117 H POC Glucose 125 H Lactic Acid Calcium Phosphorus Magnesium Direct Bilirubin AST ALT Alkaline Phosphatase Lactate Dehydrogenase Troponin T C-Reactive Protein Total Protein Albumin Prealbumin Triglycerides Cholesterol LDL Cholesterol Direct HDL Cholesterol PTH Intact Urine pH Urine WBC (Auto) Urine Creatinine Urine Total Protein Fluid Total Protein Vancomycin Trough Rheumatoid Factor Complement C4 Miscellaneous Test Crossmatch 01/26/17 01/27/17 01/27/17 17:11 00:30 04:00 WBC RBC Hgb Hct MCV MCH MCHC RDW Plt Count Lymph % (Auto) [place] % (Auto) Lymph # [place] # Baso # Seg Neutrophils % Seg Neuts % (Manual) Lymphocytes % (Manual) Monocytes % (Manual) Eosinophils % (Manual) Basophils % (Manual) Nucleated RBC % Seg Neutrophils # Seg Neutrophils # Man Lymphocytes # (Manual) Monocytes # (Manual) Eosinophils # (Manual) Basophils # (Manual) PT INR Fibrinogen dRVVT Confirm Interp Factor V Activity POC ABG pH POC ABG pCO2 POC ABG pO2 ABG pO2 ABG HCO3 ABG Base Excess ABG Hemoglobin Oxyhemoglobin Sodium Potassium Chloride 97.7 L Carbon Dioxide 21 L BUN 79 H Creatinine 1.7 H D Glucose 112 H POC Glucose 133 H 135 H Lactic Acid Calcium Phosphorus 5.00 H D Magnesium Direct Bilirubin AST ALT Alkaline Phosphatase Lactate Dehydrogenase Troponin T C-Reactive Protein Total Protein Albumin Prealbumin Triglycerides Cholesterol LDL Cholesterol Direct HDL Cholesterol PTH Intact Urine pH Urine WBC (Auto) Urine Creatinine Urine Total Protein Fluid Total Protein Vancomycin Trough Rheumatoid Factor Complement C4 Miscellaneous Test Crossmatch 01/27/17 01/27/17 01/27/17 05:12 12:18 17:25 WBC RBC Hgb Hct MCV MCH MCHC RDW Plt Count Lymph % (Auto) [place] % (Auto) Lymph # [place] # Baso # Seg Neutrophils % Seg Neuts % (Manual) Lymphocytes % (Manual) Monocytes % (Manual) Eosinophils % (Manual) Basophils % (Manual) Nucleated RBC % Seg Neutrophils # Seg Neutrophils # Man Lymphocytes # (Manual) Monocytes # (Manual) Eosinophils # (Manual) Basophils # (Manual) PT INR Fibrinogen dRVVT Confirm Interp Factor V Activity POC ABG pH POC ABG pCO2 POC ABG pO2 ABG pO2 ABG HCO3 ABG Base Excess ABG Hemoglobin Oxyhemoglobin Sodium Potassium Chloride Carbon Dioxide BUN Creatinine Glucose POC Glucose 116 H 153 H 152 H Lactic Acid Calcium Phosphorus Magnesium Direct Bilirubin AST ALT Alkaline Phosphatase Lactate Dehydrogenase Troponin T C-Reactive Protein Total Protein Albumin Prealbumin Triglycerides Cholesterol LDL Cholesterol Direct HDL Cholesterol PTH Intact Urine pH Urine WBC (Auto) Urine Creatinine Urine Total Protein Fluid Total Protein Vancomycin Trough Rheumatoid Factor Complement C4 Miscellaneous Test Crossmatch 01/27/17 01/28/17 01/28/17 23:42 04:00 04:00 WBC 14.4 H RBC 2.82 L Hgb 7.4 L Hct 23.5 L MCV MCH 26 L MCHC RDW 17.6 H Plt Count Lymph % (Auto) 10.2 L [place] % (Auto) 11.0 H Lymph # [place] # 1.6 H Baso # Seg Neutrophils % 78.0 H Seg Neuts % (Manual) Lymphocytes % (Manual) Monocytes % (Manual) Eosinophils % (Manual) Basophils % (Manual) Nucleated RBC % Seg Neutrophils # 11.3 H Seg Neutrophils # Man Lymphocytes # (Manual) Monocytes # (Manual) Eosinophils # (Manual) Basophils # (Manual) PT INR Fibrinogen dRVVT Confirm Interp Factor V Activity POC ABG pH POC ABG pCO2 POC ABG pO2 ABG pO2 ABG HCO3 ABG Base Excess ABG Hemoglobin Oxyhemoglobin Sodium Potassium Chloride Carbon Dioxide BUN 55 H Creatinine 1.3 H Glucose 114 H POC Glucose 121 H Lactic Acid Calcium Phosphorus Magnesium Direct Bilirubin AST ALT Alkaline Phosphatase Lactate Dehydrogenase Troponin T C-Reactive Protein Total Protein Albumin 1.4 L Prealbumin Triglycerides Cholesterol LDL Cholesterol Direct HDL Cholesterol PTH Intact Urine pH Urine WBC (Auto) Urine Creatinine Urine Total Protein Fluid Total Protein Vancomycin Trough Rheumatoid Factor Complement C4 Miscellaneous Test Crossmatch 01/28/17 01/28/17 01/29/17 04:59 12:30 00:02 WBC RBC Hgb Hct MCV MCH MCHC RDW Plt Count Lymph % (Auto) [place] % (Auto) Lymph # [place] # Baso # Seg Neutrophils % Seg Neuts % (Manual) Lymphocytes % (Manual) Monocytes % (Manual) Eosinophils % (Manual) Basophils % (Manual) Nucleated RBC % Seg Neutrophils # Seg Neutrophils # Man Lymphocytes # (Manual) Monocytes # (Manual) Eosinophils # (Manual) Basophils # (Manual) PT INR Fibrinogen dRVVT Confirm Interp Factor V Activity POC ABG pH POC ABG pCO2 POC ABG pO2 ABG pO2 ABG HCO3 ABG Base Excess ABG Hemoglobin Oxyhemoglobin Sodium Potassium Chloride Carbon Dioxide BUN Creatinine Glucose POC Glucose 126 H 119 H 138 H Lactic Acid Calcium Phosphorus Magnesium Direct Bilirubin AST ALT Alkaline Phosphatase Lactate Dehydrogenase Troponin T C-Reactive Protein Total Protein Albumin Prealbumin Triglycerides Cholesterol LDL Cholesterol Direct HDL Cholesterol PTH Intact Urine pH Urine WBC (Auto) Urine Creatinine Urine Total Protein Fluid Total Protein Vancomycin Trough Rheumatoid Factor Complement C4 Miscellaneous Test Crossmatch 01/29/17 01/29/17 01/29/17 04:58 06:15 11:35 WBC RBC Hgb Hct MCV MCH MCHC RDW Plt Count Lymph % (Auto) [place] % (Auto) Lymph # [place] # Baso # Seg Neutrophils % Seg Neuts % (Manual) Lymphocytes % (Manual) Monocytes % (Manual) Eosinophils % (Manual) Basophils % (Manual) Nucleated RBC % Seg Neutrophils # Seg Neutrophils # Man Lymphocytes # (Manual) Monocytes # (Manual) Eosinophils # (Manual) Basophils # (Manual) PT INR Fibrinogen dRVVT Confirm Interp Factor V Activity POC ABG pH POC ABG pCO2 POC ABG pO2 ABG pO2 ABG HCO3 ABG Base Excess ABG Hemoglobin Oxyhemoglobin Sodium Potassium Chloride Carbon Dioxide BUN 85 H Creatinine 1.7 H Glucose 105 H POC Glucose 114 H 110 H Lactic Acid Calcium Phosphorus Magnesium 2.40 H Direct Bilirubin AST ALT Alkaline Phosphatase Lactate Dehydrogenase Troponin T C-Reactive Protein Total Protein Albumin Prealbumin Triglycerides Cholesterol LDL Cholesterol Direct HDL Cholesterol PTH Intact Urine pH Urine WBC (Auto) Urine Creatinine Urine Total Protein Fluid Total Protein Vancomycin Trough Rheumatoid Factor Complement C4 Miscellaneous Test Crossmatch 01/29/17 01/29/17 01/30/17 18:24 23:41 05:12 WBC RBC Hgb Hct MCV MCH MCHC RDW Plt Count Lymph % (Auto) [place] % (Auto) Lymph # [place] # Baso # Seg Neutrophils % Seg Neuts % (Manual) Lymphocytes % (Manual) Monocytes % (Manual) Eosinophils % (Manual) Basophils % (Manual) Nucleated RBC % Seg Neutrophils # Seg Neutrophils # Man Lymphocytes # (Manual) Monocytes # (Manual) Eosinophils # (Manual) Basophils # (Manual) PT INR Fibrinogen dRVVT Confirm Interp Factor V Activity POC ABG pH POC ABG pCO2 POC ABG pO2 ABG pO2 ABG HCO3 ABG Base Excess ABG Hemoglobin Oxyhemoglobin Sodium Potassium Chloride Carbon Dioxide BUN Creatinine Glucose POC Glucose 109 H 134 H 109 H Lactic Acid Calcium Phosphorus Magnesium Direct Bilirubin AST ALT Alkaline Phosphatase Lactate Dehydrogenase Troponin T C-Reactive Protein Total Protein Albumin Prealbumin Triglycerides Cholesterol LDL Cholesterol Direct HDL Cholesterol PTH Intact Urine pH Urine WBC (Auto) Urine Creatinine Urine Total Protein Fluid Total Protein Vancomycin Trough Rheumatoid Factor Complement C4 Miscellaneous Test Crossmatch 01/30/17 01/30/17 01/30/17 11:26 17:43 23:39 WBC RBC Hgb Hct MCV MCH MCHC RDW Plt Count Lymph % (Auto) [place] % (Auto) Lymph # [place] # Baso # Seg Neutrophils % Seg Neuts % (Manual) Lymphocytes % (Manual) Monocytes % (Manual) Eosinophils % (Manual) Basophils % (Manual) Nucleated RBC % Seg Neutrophils # Seg Neutrophils # Man Lymphocytes # (Manual) Monocytes # (Manual) Eosinophils # (Manual) Basophils # (Manual) PT INR Fibrinogen dRVVT Confirm Interp Factor V Activity POC ABG pH POC ABG pCO2 POC ABG pO2 ABG pO2 ABG HCO3 ABG Base Excess ABG Hemoglobin Oxyhemoglobin Sodium Potassium Chloride Carbon Dioxide BUN Creatinine Glucose POC Glucose 135 H 143 H 122 H Lactic Acid Calcium Phosphorus Magnesium Direct Bilirubin AST ALT Alkaline Phosphatase Lactate Dehydrogenase Troponin T C-Reactive Protein Total Protein Albumin Prealbumin Triglycerides Cholesterol LDL Cholesterol Direct HDL Cholesterol PTH Intact Urine pH Urine WBC (Auto) Urine Creatinine Urine Total Protein Fluid Total Protein Vancomycin Trough Rheumatoid Factor Complement C4 Miscellaneous Test Crossmatch 01/31/17 01/31/17 01/31/17 04:00 05:40 11:12 WBC RBC Hgb Hct MCV MCH MCHC RDW Plt Count Lymph % (Auto) [place] % (Auto) Lymph # [place] # Baso # Seg Neutrophils % Seg Neuts % (Manual) Lymphocytes % (Manual) Monocytes % (Manual) Eosinophils % (Manual) Basophils % (Manual) Nucleated RBC % Seg Neutrophils # Seg Neutrophils # Man Lymphocytes # (Manual) Monocytes # (Manual) Eosinophils # (Manual) Basophils # (Manual) PT INR Fibrinogen dRVVT Confirm Interp Factor V Activity POC ABG pH POC ABG pCO2 POC ABG pO2 ABG pO2 ABG HCO3 ABG Base Excess ABG Hemoglobin Oxyhemoglobin Sodium Potassium Chloride Carbon Dioxide BUN 78 H Creatinine 1.5 H Glucose 108 H POC Glucose 123 H Lactic Acid Calcium Phosphorus Magnesium Direct Bilirubin AST ALT Alkaline Phosphatase Lactate Dehydrogenase Troponin T C-Reactive Protein 8.10 H Total Protein Albumin Prealbumin Triglycerides Cholesterol LDL Cholesterol Direct HDL Cholesterol PTH Intact Urine pH Urine WBC (Auto) Urine Creatinine Urine Total Protein Fluid Total Protein Vancomycin Trough Rheumatoid Factor Complement C4 Miscellaneous Test Crossmatch 01/31/17 01/31/17 01/31/17 11:16 17:45 17:50 WBC RBC Hgb Hct MCV MCH MCHC RDW Plt Count Lymph % (Auto) [place] % (Auto) Lymph # [place] # Baso # Seg Neutrophils % Seg Neuts % (Manual) Lymphocytes % (Manual) Monocytes % (Manual) Eosinophils % (Manual) Basophils % (Manual) Nucleated RBC % Seg Neutrophils # Seg Neutrophils # Man Lymphocytes # (Manual) Monocytes # (Manual) Eosinophils # (Manual) Basophils # (Manual) PT INR Fibrinogen dRVVT Confirm Interp Factor V Activity POC ABG pH POC ABG pCO2 POC ABG pO2 ABG pO2 ABG HCO3 ABG Base Excess ABG Hemoglobin Oxyhemoglobin Sodium Potassium Chloride Carbon Dioxide BUN Creatinine Glucose POC Glucose 119 H 111 H Lactic Acid Calcium Phosphorus Magnesium Direct Bilirubin AST ALT Alkaline Phosphatase Lactate Dehydrogenase Troponin T C-Reactive Protein Total Protein Albumin Prealbumin Triglycerides Cholesterol LDL Cholesterol Direct HDL Cholesterol PTH Intact 6.76 L Urine pH Urine WBC (Auto) Urine Creatinine Urine Total Protein Fluid Total Protein Vancomycin Trough Rheumatoid Factor Complement C4 Miscellaneous Test Crossmatch 01/31/17 02/01/17 02/01/17 23:19 05:42 09:24 WBC RBC Hgb Hct MCV MCH MCHC RDW Plt Count Lymph % (Auto) [place] % (Auto) Lymph # [place] # Baso # Seg Neutrophils % Seg Neuts % (Manual) Lymphocytes % (Manual) Monocytes % (Manual) Eosinophils % (Manual) Basophils % (Manual) Nucleated RBC % Seg Neutrophils # Seg Neutrophils # Man Lymphocytes # (Manual) Monocytes # (Manual) Eosinophils # (Manual) Basophils # (Manual) PT INR Fibrinogen dRVVT Confirm Interp Factor V Activity POC ABG pH POC ABG pCO2 POC ABG pO2 ABG pO2 ABG HCO3 ABG Base Excess ABG Hemoglobin Oxyhemoglobin Sodium Potassium Chloride Carbon Dioxide BUN Creatinine Glucose POC Glucose 118 H 122 H Lactic Acid Calcium Phosphorus Magnesium 2.60 H Direct Bilirubin AST ALT Alkaline Phosphatase Lactate Dehydrogenase Troponin T C-Reactive Protein Total Protein Albumin Prealbumin Triglycerides Cholesterol LDL Cholesterol Direct HDL Cholesterol PTH Intact Urine pH Urine WBC (Auto) Urine Creatinine Urine Total Protein Fluid Total Protein Vancomycin Trough Rheumatoid Factor Complement C4 Miscellaneous Test Crossmatch 02/01/17 02/01/17 02/02/17 09:24 12:15 07:40 WBC RBC Hgb Hct MCV MCH MCHC RDW Plt Count Lymph % (Auto) [place] % (Auto) Lymph # [place] # Baso # Seg Neutrophils % Seg Neuts % (Manual) Lymphocytes % (Manual) Monocytes % (Manual) Eosinophils % (Manual) Basophils % (Manual) Nucleated RBC % Seg Neutrophils # Seg Neutrophils # Man Lymphocytes # (Manual) Monocytes # (Manual) Eosinophils # (Manual) Basophils # (Manual) PT INR Fibrinogen dRVVT Confirm Interp Factor V Activity POC ABG pH POC ABG pCO2 POC ABG pO2 ABG pO2 ABG HCO3 ABG Base Excess ABG Hemoglobin Oxyhemoglobin Sodium Potassium Chloride Carbon Dioxide BUN 102 H 72 H Creatinine 1.9 H 1.5 H Glucose 120 H POC Glucose 156 H Lactic Acid Calcium Phosphorus Magnesium Direct Bilirubin AST ALT Alkaline Phosphatase Lactate Dehydrogenase Troponin T C-Reactive Protein Total Protein Albumin Prealbumin Triglycerides Cholesterol LDL Cholesterol Direct HDL Cholesterol PTH Intact Urine pH Urine WBC (Auto) Urine Creatinine Urine Total Protein Fluid Total Protein Vancomycin Trough Rheumatoid Factor Complement C4 Miscellaneous Test Crossmatch 02/02/17 02/02/17 02/03/17 10:16 12:11 00:08 WBC 12.0 H RBC 3.08 L Hgb 8.3 L Hct 25.6 L MCV MCH 27 L MCHC RDW 18.2 H Plt Count Lymph % (Auto) [place] % (Auto) Lymph # [place] # Baso # Seg Neutrophils % 78.4 H Seg Neuts % (Manual) Lymphocytes % (Manual) Monocytes % (Manual) Eosinophils % (Manual) Basophils % (Manual) Nucleated RBC % Seg Neutrophils # 9.4 H Seg Neutrophils # Man Lymphocytes # (Manual) Monocytes # (Manual) Eosinophils # (Manual) Basophils # (Manual) PT INR Fibrinogen dRVVT Confirm Interp Factor V Activity POC ABG pH POC ABG pCO2 POC ABG pO2 ABG pO2 ABG HCO3 ABG Base Excess ABG Hemoglobin Oxyhemoglobin Sodium Potassium Chloride Carbon Dioxide BUN Creatinine Glucose POC Glucose 110 H 120 H Lactic Acid Calcium Phosphorus Magnesium Direct Bilirubin AST ALT Alkaline Phosphatase Lactate Dehydrogenase Troponin T C-Reactive Protein Total Protein Albumin Prealbumin Triglycerides Cholesterol LDL Cholesterol Direct HDL Cholesterol PTH Intact Urine pH Urine WBC (Auto) Urine Creatinine Urine Total Protein Fluid Total Protein Vancomycin Trough Rheumatoid Factor Complement C4 Miscellaneous Test Crossmatch 02/03/17 02/03/17 02/03/17 05:41 07:38 11:31 WBC RBC Hgb Hct MCV MCH MCHC RDW Plt Count Lymph % (Auto) [place] % (Auto) Lymph # [place] # Baso # Seg Neutrophils % Seg Neuts % (Manual) Lymphocytes % (Manual) Monocytes % (Manual) Eosinophils % (Manual) Basophils % (Manual) Nucleated RBC % Seg Neutrophils # Seg Neutrophils # Man Lymphocytes # (Manual) Monocytes # (Manual) Eosinophils # (Manual) Basophils # (Manual) PT INR Fibrinogen dRVVT Confirm Interp Factor V Activity POC ABG pH POC ABG pCO2 POC ABG pO2 ABG pO2 ABG HCO3 ABG Base Excess ABG Hemoglobin Oxyhemoglobin Sodium 134 L Potassium Chloride Carbon Dioxide 21 L BUN 91 H Creatinine 1.9 H Glucose 110 H POC Glucose 119 H 119 H Lactic Acid Calcium 10.3 H Phosphorus Magnesium Direct Bilirubin AST ALT Alkaline Phosphatase Lactate Dehydrogenase Troponin T C-Reactive Protein Total Protein Albumin Prealbumin Triglycerides Cholesterol LDL Cholesterol Direct HDL Cholesterol PTH Intact Urine pH Urine WBC (Auto) Urine Creatinine Urine Total Protein Fluid Total Protein Vancomycin Trough Rheumatoid Factor Complement C4 Miscellaneous Test Crossmatch 02/03/17 02/04/17 02/04/17 17:13 04:00 05:18 WBC RBC Hgb Hct MCV MCH MCHC RDW Plt Count Lymph % (Auto) [place] % (Auto) Lymph # [place] # Baso # Seg Neutrophils % Seg Neuts % (Manual) Lymphocytes % (Manual) Monocytes % (Manual) Eosinophils % (Manual) Basophils % (Manual) Nucleated RBC % Seg Neutrophils # Seg Neutrophils # Man Lymphocytes # (Manual) Monocytes # (Manual) Eosinophils # (Manual) Basophils # (Manual) PT INR Fibrinogen dRVVT Confirm Interp Factor V Activity POC ABG pH POC ABG pCO2 POC ABG pO2 ABG pO2 ABG HCO3 ABG Base Excess ABG Hemoglobin Oxyhemoglobin Sodium 136 L Potassium Chloride Carbon Dioxide BUN 58 H Creatinine 1.3 H Glucose 103 H POC Glucose 133 H 132 H Lactic Acid Calcium Phosphorus 2.00 L D Magnesium 1.60 L Direct Bilirubin AST ALT Alkaline Phosphatase Lactate Dehydrogenase Troponin T C-Reactive Protein Total Protein Albumin Prealbumin Triglycerides Cholesterol LDL Cholesterol Direct HDL Cholesterol PTH Intact Urine pH Urine WBC (Auto) Urine Creatinine Urine Total Protein Fluid Total Protein Vancomycin Trough Rheumatoid Factor Complement C4 Miscellaneous Test Crossmatch 02/05/17 02/05/17 02/05/17 00:01 04:00 06:42 WBC RBC Hgb Hct MCV MCH MCHC RDW Plt Count Lymph % (Auto) [place] % (Auto) Lymph # [place] # Baso # Seg Neutrophils % Seg Neuts % (Manual) Lymphocytes % (Manual) Monocytes % (Manual) Eosinophils % (Manual) Basophils % (Manual) Nucleated RBC % Seg Neutrophils # Seg Neutrophils # Man Lymphocytes # (Manual) Monocytes # (Manual) Eosinophils # (Manual) Basophils # (Manual) PT INR Fibrinogen dRVVT Confirm Interp Factor V Activity POC ABG pH POC ABG pCO2 POC ABG pO2 ABG pO2 ABG HCO3 ABG Base Excess ABG Hemoglobin Oxyhemoglobin Sodium Potassium Chloride Carbon Dioxide BUN 83 H Creatinine 1.8 H Glucose POC Glucose 119 H 110 H Lactic Acid Calcium 10.7 H Phosphorus Magnesium Direct Bilirubin AST ALT Alkaline Phosphatase Lactate Dehydrogenase Troponin T C-Reactive Protein Total Protein Albumin Prealbumin Triglycerides Cholesterol LDL Cholesterol Direct HDL Cholesterol PTH Intact Urine pH Urine WBC (Auto) Urine Creatinine Urine Total Protein Fluid Total Protein Vancomycin Trough Rheumatoid Factor Complement C4 Miscellaneous Test Crossmatch 02/05/17 02/05/17 02/05/17 09:59 11:47 23:44 WBC RBC 2.69 L Hgb 7.2 L Hct 22.5 L MCV MCH 27 L MCHC RDW 18.6 H Plt Count Lymph % (Auto) [place] % (Auto) 9.2 H Lymph # [place] # 0.9 H Baso # Seg Neutrophils % Seg Neuts % (Manual) Lymphocytes % (Manual) Monocytes % (Manual) Eosinophils % (Manual) Basophils % (Manual) Nucleated RBC % Seg Neutrophils # Seg Neutrophils # Man Lymphocytes # (Manual) Monocytes # (Manual) Eosinophils # (Manual) Basophils # (Manual) PT INR Fibrinogen dRVVT Confirm Interp Factor V Activity POC ABG pH POC ABG pCO2 POC ABG pO2 ABG pO2 ABG HCO3 ABG Base Excess ABG Hemoglobin Oxyhemoglobin Sodium Potassium Chloride Carbon Dioxide BUN Creatinine Glucose POC Glucose 130 H 123 H Lactic Acid Calcium Phosphorus Magnesium Direct Bilirubin AST ALT Alkaline Phosphatase Lactate Dehydrogenase Troponin T C-Reactive Protein Total Protein Albumin Prealbumin Triglycerides Cholesterol LDL Cholesterol Direct HDL Cholesterol PTH Intact Urine pH Urine WBC (Auto) Urine Creatinine Urine Total Protein Fluid Total Protein Vancomycin Trough Rheumatoid Factor Complement C4 Miscellaneous Test Crossmatch 02/06/17 02/06/17 02/06/17 04:45 05:58 12:01 WBC RBC Hgb Hct MCV MCH MCHC RDW Plt Count Lymph % (Auto) [place] % (Auto) Lymph # [place] # Baso # Seg Neutrophils % Seg Neuts % (Manual) Lymphocytes % (Manual) Monocytes % (Manual) Eosinophils % (Manual) Basophils % (Manual) Nucleated RBC % Seg Neutrophils # Seg Neutrophils # Man Lymphocytes # (Manual) Monocytes # (Manual) Eosinophils # (Manual) Basophils # (Manual) PT INR Fibrinogen dRVVT Confirm Interp Factor V Activity POC ABG pH POC ABG pCO2 POC ABG pO2 ABG pO2 ABG HCO3 ABG Base Excess ABG Hemoglobin Oxyhemoglobin Sodium Potassium Chloride Carbon Dioxide BUN 101 H Creatinine 2.0 H Glucose 102 H POC Glucose 115 H 132 H Lactic Acid Calcium 10.6 H Phosphorus Magnesium Direct Bilirubin AST ALT Alkaline Phosphatase 199 H Lactate Dehydrogenase Troponin T C-Reactive Protein Total Protein Albumin 1.4 L Prealbumin Triglycerides Cholesterol LDL Cholesterol Direct HDL Cholesterol PTH Intact Urine pH Urine WBC (Auto) Urine Creatinine Urine Total Protein Fluid Total Protein Vancomycin Trough Rheumatoid Factor Complement C4 Miscellaneous Test Crossmatch 02/06/17 02/06/17 02/07/17 17:41 23:32 05:04 WBC RBC Hgb Hct MCV MCH MCHC RDW Plt Count Lymph % (Auto) [place] % (Auto) Lymph # [place] # Baso # Seg Neutrophils % Seg Neuts % (Manual) Lymphocytes % (Manual) Monocytes % (Manual) Eosinophils % (Manual) Basophils % (Manual) Nucleated RBC % Seg Neutrophils # Seg Neutrophils # Man Lymphocytes # (Manual) Monocytes # (Manual) Eosinophils # (Manual) Basophils # (Manual) PT INR Fibrinogen dRVVT Confirm Interp Factor V Activity POC ABG pH POC ABG pCO2 POC ABG pO2 ABG pO2 ABG HCO3 ABG Base Excess ABG Hemoglobin Oxyhemoglobin Sodium Potassium Chloride Carbon Dioxide BUN Creatinine Glucose POC Glucose 134 H 128 H 119 H Lactic Acid Calcium Phosphorus Magnesium Direct Bilirubin AST ALT Alkaline Phosphatase Lactate Dehydrogenase Troponin T C-Reactive Protein Total Protein Albumin Prealbumin Triglycerides Cholesterol LDL Cholesterol Direct HDL Cholesterol PTH Intact Urine pH Urine WBC (Auto) Urine Creatinine Urine Total Protein Fluid Total Protein Vancomycin Trough Rheumatoid Factor Complement C4 Miscellaneous Test Crossmatch 02/07/17 06:30 WBC RBC Hgb Hct MCV MCH MCHC RDW Plt Count Lymph % (Auto) [place] % (Auto) Lymph # [place] # Baso # Seg Neutrophils % Seg Neuts % (Manual) Lymphocytes % (Manual) Monocytes % (Manual) Eosinophils % (Manual) Basophils % (Manual) Nucleated RBC % Seg Neutrophils # Seg Neutrophils # Man Lymphocytes # (Manual) Monocytes # (Manual) Eosinophils # (Manual) Basophils # (Manual) PT INR Fibrinogen dRVVT Confirm Interp Factor V Activity POC ABG pH POC ABG pCO2 POC ABG pO2 ABG pO2 ABG HCO3 ABG Base Excess ABG Hemoglobin Oxyhemoglobin Sodium Potassium 3.4 L Chloride Carbon Dioxide BUN 69 H Creatinine 1.5 H Glucose 105 H POC Glucose Lactic Acid Calcium Phosphorus Magnesium 1.50 L Direct Bilirubin AST ALT Alkaline Phosphatase Lactate Dehydrogenase Troponin T C-Reactive Protein Total Protein Albumin Prealbumin Triglycerides Cholesterol LDL Cholesterol Direct HDL Cholesterol PTH Intact Urine pH Urine WBC (Auto) Urine Creatinine Urine Total Protein Fluid Total Protein Vancomycin Trough Rheumatoid Factor Complement C4 Miscellaneous Test Crossmatch CT scan - chest: image reviewed Allied health notes reviewed: RT (Has been on PS 15/5, no desaturations today)
[2017-02-07] MEDS: LOPRESSOR IV PRN ×2 (14:12→20:45)
--- NOTE | 2017-02-07 15:04 | Progress Note ---
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 * Her serum creatinine noted to be much lower. However clinically still volume overloaded. * Shall continue hemodialysis on Monday schedule for now . * Continue IV albumin with Lasix as well * Tolerating TPN well at this time. Tube feeding has also been initiated * monitor for renal recovery * Rate control per cardiology * Dose medications for renal function * Avoid potential nephrotoxins Subjective Date of service: 02/07/17 Principal diagnosis: Acute resp failure on MVS; S/P Acute CVA; Acute Encephalopathy; JUANITA Interval history: Patient remains on the ventilator. Currently on 30% FiO2. Unresponsive. Off Pressors Objective - Vital Signs Vital signs: Vital Signs - 12hr 02/07/17 02/07/17 02/07/17 03:29 03:30 04:00 Temperature 98.8 F Pulse Rate 117 H 111 H Pulse Rate [ Anterior Bilateral Throughout] Pulse Rate [ 87 Apical] Pulse Rate [ 87 From Monitor] Pulse Rate [ 87 Left Dorsalis Pedis] Pulse Rate [ 87 Left Radial] Pulse Rate [ 87 Right Dorsalis Pedis] Pulse Rate [ Right Lower Lobe] Pulse Rate [ 87 Right Radial] Respiratory 17 17 Rate Respiratory Rate [Anterior Bilateral Throughout] Respiratory Rate [Right Lower Lobe] Blood Pressure 170/98 168/101 O2 Sat by Pulse 100 100 Oximetry 02/07/17 02/07/17 02/07/17 04:30 05:00 05:30 Temperature Pulse Rate 117 H 119 H 111 H Pulse Rate [ Anterior Bilateral Throughout] Pulse Rate [ Apical] Pulse Rate [ From Monitor] Pulse Rate [ Left Dorsalis Pedis] Pulse Rate [ Left Radial] Pulse Rate [ Right Dorsalis Pedis] Pulse Rate [ Right Lower Lobe] Pulse Rate [ Right Radial] Respiratory 16 16 20 Rate Respiratory Rate [Anterior Bilateral Throughout] Respiratory Rate [Right Lower Lobe] Blood Pressure 168/101 173/108 173/108 O2 Sat by Pulse 100 100 100 Oximetry 02/07/17 02/07/17 02/07/17 06:00 06:30 07:00 Temperature Pulse Rate 120 H 114 H 109 H Pulse Rate [ Anterior Bilateral Throughout] Pulse Rate [ Apical] Pulse Rate [ From Monitor] Pulse Rate [ Left Dorsalis Pedis] Pulse Rate [ Left Radial] Pulse Rate [ Right Dorsalis Pedis] Pulse Rate [ Right Lower Lobe] Pulse Rate [ Right Radial] Respiratory 20 12 22 Rate Respiratory Rate [Anterior Bilateral Throughout] Respiratory Rate [Right Lower Lobe] Blood Pressure 179/115 146/79 142/88 O2 Sat by Pulse 100 100 Oximetry 02/07/17 02/07/17 02/07/17 07:31 08:00 08:20 Temperature 97.6 F Pulse Rate 105 H 106 H 109 H Pulse Rate [ Anterior Bilateral Throughout] Pulse Rate [ Apical] Pulse Rate [ From Monitor] Pulse Rate [ Left Dorsalis Pedis] Pulse Rate [ Left Radial] Pulse Rate [ Right Dorsalis Pedis] Pulse Rate [ Right Lower Lobe] Pulse Rate [ Right Radial] Respiratory 21 18 29 H Rate Respiratory Rate [Anterior Bilateral Throughout] Respiratory Rate [Right Lower Lobe] Blood Pressure 136/85 136/85 O2 Sat by Pulse 100 100 100 Oximetry 02/07/17 02/07/17 02/07/17 08:24 08:31 08:42 Temperature Pulse Rate 96 H Pulse Rate [ 108 H Anterior Bilateral Throughout] Pulse Rate [ Apical] Pulse Rate [ From Monitor] Pulse Rate [ Left Dorsalis Pedis] Pulse Rate [ Left Radial] Pulse Rate [ Right Dorsalis Pedis] Pulse Rate [ 108 H Right Lower Lobe] Pulse Rate [ Right Radial] Respiratory 21 Rate Respiratory 17 Rate [Anterior Bilateral Throughout] Respiratory 28 H Rate [Right Lower Lobe] Blood Pressure 136/85 O2 Sat by Pulse 100 Oximetry 02/07/17 02/07/17 02/07/17 09:00 09:31 10:00 Temperature Pulse Rate 120 H 111 H 113 H Pulse Rate [ Anterior Bilateral Throughout] Pulse Rate [ Apical] Pulse Rate [ From Monitor] Pulse Rate [ Left Dorsalis Pedis] Pulse Rate [ Left Radial] Pulse Rate [ Right Dorsalis Pedis] Pulse Rate [ Right Lower Lobe] Pulse Rate [ Right Radial] Respiratory 35 H 35 H 30 H Rate Respiratory Rate [Anterior Bilateral Throughout] Respiratory Rate [Right Lower Lobe] Blood Pressure 133/81 133/81 131/79 O2 Sat by Pulse 100 100 100 Oximetry 02/07/17 02/07/17 02/07/17 10:31 11:00 11:31 Temperature Pulse Rate 113 H 120 H 116 H Pulse Rate [ Anterior Bilateral Throughout] Pulse Rate [ Apical] Pulse Rate [ From Monitor] Pulse Rate [ Left Dorsalis Pedis] Pulse Rate [ Left Radial] Pulse Rate [ Right Dorsalis Pedis] Pulse Rate [ Right Lower Lobe] Pulse Rate [ Right Radial] Respiratory 26 H 13 29 H Rate Respiratory Rate [Anterior Bilateral Throughout] Respiratory Rate [Right Lower Lobe] Blood Pressure 131/79 138/95 138/95 O2 Sat by Pulse 100 100 100 Oximetry 02/07/17 02/07/17 02/07/17 12:00 12:21 12:31 Temperature 98.6 F Pulse Rate 115 H 115 H 114 H Pulse Rate [ Anterior Bilateral Throughout] Pulse Rate [ Apical] Pulse Rate [ From Monitor] Pulse Rate [ Left Dorsalis Pedis] Pulse Rate [ Left Radial] Pulse Rate [ Right Dorsalis Pedis] Pulse Rate [ Right Lower Lobe] Pulse Rate [ Right Radial] Respiratory 38 H 21 Rate Respiratory Rate [Anterior Bilateral Throughout] Respiratory Rate [Right Lower Lobe] Blood Pressure 142/96 142/96 142/96 O2 Sat by Pulse 99 100 100 Oximetry 02/07/17 02/07/17 02/07/17 13:00 14:12 14:22 Temperature Pulse Rate 116 H 132 H Pulse Rate [ Anterior Bilateral Throughout] Pulse Rate [ Apical] Pulse Rate [ From Monitor] Pulse Rate [ Left Dorsalis Pedis] Pulse Rate [ Left Radial] Pulse Rate [ Right Dorsalis Pedis] Pulse Rate [ 109 H Right Lower Lobe] Pulse Rate [ Right Radial] Respiratory 20 Rate Respiratory Rate [Anterior Bilateral Throughout] Respiratory 15 Rate [Right Lower Lobe] Blood Pressure 146/106 158/103 O2 Sat by Pulse 100 Oximetry 02/07/17 14:37 Temperature Pulse Rate Pulse Rate [ Anterior Bilateral Throughout] Pulse Rate [ Apical] Pulse Rate [ From Monitor] Pulse Rate [ Left Dorsalis Pedis] Pulse Rate [ Left Radial] Pulse Rate [ Right Dorsalis Pedis] Pulse Rate [ 106 H Right Lower Lobe] Pulse Rate [ Right Radial] Respiratory Rate Respiratory Rate [Anterior Bilateral Throughout] Respiratory 26 H Rate [Right Lower Lobe] Blood Pressure O2 Sat by Pulse Oximetry - General Appearance General appearance: well-developed, well-nourished, appears stated age EENT: PERRL, mucous membranes moist Neck: other (tracheostomy tube in place. Connected to the ventilator.) Respiratory: Present: Ronchi (bilateral scattered rhonchi) Cardiology: regular, normal heart rate Gastrointestinal: normal, normoactive bowel sounds, other (collection bag noted in the right lower quadrant) Integumentary: other (1+ edema) - Lab 02/05/17 09:59 02/07/17 06:30 Most recent lab results ABG pH 7.450 pH Units (7.350-7.450) 12/05/16 Unknown ABG pCO2 29.6 mm Hg 12/05/16 Unknown ABG pO2 75.2 mm Hg (80.0-90.0) L 12/05/16 Unknown ABG HCO3 20.1 mmol/L (20.0-26.0) 12/05/16 Unknown ABG O2 Saturation 96.8 % (95.0-99.0) 12/05/16 Unknown Calcium 9.6 mg/dL (8.4-10.2) 02/07/17 06:30 Phosphorus 2.60 mg/dL (2.5-4.5) D 02/07/17 06:30 Magnesium 1.50 mg/dL (1.7-2.3) L 02/07/17 06:30 Urine Creatinine 19.7 mg/dL (0.1-20.0) 11/12/16 10:18 Urine Sodium 36 mEq/L 09/16/16 19:19 Urine Total Protein 16 mg/dL (5-11.8) H 09/16/16 19:19
[2017-02-07] MEDS ORDERED: TPN ADULT IV SCH (20:00)
[2017-02-08] MEDS: HumuLIN R SUB-Q SCH ×5 (00:31→18:34)
[2017-02-08] MEDS: REGLAN IV SCH ×3 (06:15→21:07)
[2017-02-08] MEDS: DUONEB *Not for PRN Use IH SCH ×3 (08:31→19:24)
[2017-02-08] MEDS: HEPARIN SUB-Q SCH ×2 (09:31→21:07)
[2017-02-08] MEDS: ROBINUL PO SCH ×2 (09:31→21:08)
[2017-02-08] MEDS: MAG-OX PO SCH (09:31)
[2017-02-08] MEDS: PROTONIX FEEDTUBE SCH (09:32)
--- NOTE | 2017-02-08 12:03 | Progress Note ---
Assessment and Plan Assessment: 1) Recurrent SIRS: unclear source. 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 gastric perf (PEG placed on 09/20) +/- TPN +/- central lines -TTE 10/07 no vegetations -PICC exchanged on 10/03 -fully treated with micafungin for 14 days last day 10/13 4) History CA-UTI s/p gutierrez exchanged 5) Diarrhea - ? etiology ? antibiotic-induced, not better. 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 from GI bleed 13) Recent abdominal wall abscess at surgical site-treated 14 ) Recent Enterococcal bacteremia from PICC line infection. 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 -worsening -S/P debridement at bedside - new wound cx 01/24 +Proteus and MDR Pseudomonas (resistant to meropenem and cefepime/sensitive to ceftazidime) -CRP=24 --> 8 16) Presumed VAP: sputum + MDR Pseudomonas / Proteus / pleural effusion s/p thoracentesis 17) Resp failure - better Plan: -continue ceftazidime IV total 3 weeks until 02/20/17-was on meropenem -continue wound care Thank you Dr Means or your consultation, will follow up with you. Pauline Carias MD Infectious Diseases Specialist [facility] ([facility] M [phone] O [phone] Subjective Date of service: 02/08/17 Principal diagnosis: Acute resp failure on MVS; S/P Acute CVA; Acute Encephalopathy; JUANITA Interval history: Interval history: Alert, no fever, remains tachy Microbiology: Blood cultures: 09/13 neg 8/ Silvia albicans 09/25 Silvia 09/29 neg 10/07 neg 11/05 neg 11/07 ngtd 10 E faecalis 1 of 4 bottles 11/25 neg 12/27 neg 01/09 ngtd Urine cultures: 09/10 neg 09/13 neg 8/ 10-100K mixed species 10/07 neg 11/05 VRE 11/07 mixed bacteria Respiratory cultures: 09/07 neg 09/13 neg 09/23 neg 11/07 MDR Pseudomonas 11/21 tracheal + VRE 01/09 Pseudomonas x 3 and Proteues Pleural effusion: ngtd Wound cultures: 10/17 abd wall wound purulence + Pseudomonas MDR 01/24 GNRs Stool cultures: cath tip 11/07 + [employer] Current Antimicrobials: ceftaz 01/30 Previous Antimicrobials: Zosyn 10/07 Vancomycin PO 10/01 Metronidazole 09/25 Micafungin 09/27-10/13 Meropenem 10/10 Vanco 10/17 zosyn 10/21 Cefepime 11/10 vancomyin 11/07 fluconazole 10/19 cefepime 10/29levaquin 11/05 vanco 11/23 meropenem 01/08 Objective - Exam Narrative Exam: General appearance: somnolent non communicative, on the vent via trach in mild resp distress, no following commands Eyes: anicteric sclera, moist conjunctivae; PERRLA HENT: Atraumatic; oropharynx limited; Normal external ears. +NGT with greenish secretion Neck: +trach in place; supple, no thyromegaly or lymphadenopathy Lungs: brit coarse BS CV: tachy Abdomen: Soft, non-tender, +old PEG site no drainage. +iliostomy. 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 Necrotic tissue noted on the wound edges and in the wound bed Psych: somnolent . Neuro: alert non verbal on the vent. Lines: PICC / gutierrez - Constitutional Vitals: Vital Signs Temp Pulse Resp BP Pulse Ox 99.1 F 120 H 38 H 138/84 100 02/08/17 08:00 02/08/17 10:34 02/08/17 10:00 02/08/17 10:00 02/08/17 10:00 Temperature -Last 24 Hours Temperature 99.1 F Temperature 976 F Temperature 97.8 F Temperature 98.2 F Temperature 98.6 F - Labs CBC & Chem 7: 02/05/17 09:59 02/08/17 04:00 Labs: Abnormal lab results 02/07/17 02/07/17 02/07/17 Range/Units 11:20 17:13 20:47 BUN (7-17) mg/dL Creatinine (0.7-1.2) mg/dL POC Glucose 117 H 110 H 115 H (70-105) Magnesium (1.7-2.3) mg/dL 02/08/17 02/08/17 Range/Units 04:00 11:43 BUN 86 H (7-17) mg/dL Creatinine 1.7 H (0.7-1.2) mg/dL POC Glucose 122 H (70-105) Magnesium 1.60 L (1.7-2.3) mg/dL
--- NOTE | 2017-02-08 13:39 | Progress Note ---
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 shift * Acute hypoxic respiratory failure * Left renal artery stenosis * Metabolic acidosis - improved * Anemia * Hyponatremia - multifactorial * tachycardia * Pleural effusion Plan: * Patient is scheduled for dialysis today . * Her serum creatinine noted to be much lower. However clinically still volume overloaded. * Shall continue hemodialysis on Monday schedule for now . * Continue IV albumin with Lasix as well * Tolerating TPN well at this time. Tube feeding has also been initiated * monitor for renal recovery * Rate control per cardiology * Dose medications for renal function * Avoid potential nephrotoxins Subjective Date of service: 02/08/17 Principal diagnosis: Acute resp failure on MVS; S/P Acute CVA; Acute Encephalopathy; JUANITA Interval history: Patient remains on the ventilator. On 30% FiO2. Unresponsive. Objective - Vital Signs Vital signs: Vital Signs - 12hr 02/08/17 02/08/17 02/08/17 02:00 02:31 02:54 Temperature Pulse Rate 112 H 114 H 98 H Pulse Rate [ Anterior Bilateral Throughout] Pulse Rate [ From Monitor] Pulse Rate [ Right Lower Lobe] Pulse Rate [ Throughout] Respiratory 17 17 Rate Respiratory Rate [Anterior Bilateral Throughout] Respiratory Rate [Right Lower Lobe] Respiratory Rate [ Throughout] Blood Pressure 137/82 137/82 137/82 O2 Sat by Pulse 100 100 100 Oximetry O2 Sat by Pulse Oximetry [ Right Lower Lobe] 02/08/17 02/08/17 02/08/17 03:00 03:31 04:00 Temperature 976 F H Pulse Rate 133 H 120 H 122 H Pulse Rate [ Anterior Bilateral Throughout] Pulse Rate [ From Monitor] Pulse Rate [ Right Lower Lobe] Pulse Rate [ Throughout] Respiratory 20 15 15 Rate Respiratory Rate [Anterior Bilateral Throughout] Respiratory Rate [Right Lower Lobe] Respiratory Rate [ Throughout] Blood Pressure 123/83 123/83 133/88 O2 Sat by Pulse 100 100 100 Oximetry O2 Sat by Pulse Oximetry [ Right Lower Lobe] 02/08/17 02/08/17 02/08/17 04:31 05:00 05:31 Temperature Pulse Rate 120 H 114 H 119 H Pulse Rate [ Anterior Bilateral Throughout] Pulse Rate [ From Monitor] Pulse Rate [ Right Lower Lobe] Pulse Rate [ Throughout] Respiratory 20 17 22 Rate Respiratory Rate [Anterior Bilateral Throughout] Respiratory Rate [Right Lower Lobe] Respiratory Rate [ Throughout] Blood Pressure 133/88 129/86 129/86 O2 Sat by Pulse 100 100 100 Oximetry O2 Sat by Pulse Oximetry [ Right Lower Lobe] 02/08/17 02/08/17 02/08/17 06:00 06:31 07:00 Temperature Pulse Rate 117 H 121 H 118 H Pulse Rate [ Anterior Bilateral Throughout] Pulse Rate [ From Monitor] Pulse Rate [ Right Lower Lobe] Pulse Rate [ Throughout] Respiratory 18 19 24 Rate Respiratory Rate [Anterior Bilateral Throughout] Respiratory Rate [Right Lower Lobe] Respiratory Rate [ Throughout] Blood Pressure 133/88 133/88 137/79 O2 Sat by Pulse 100 100 100 Oximetry O2 Sat by Pulse Oximetry [ Right Lower Lobe] 02/08/17 02/08/17 02/08/17 07:31 08:00 08:31 Temperature 99.1 F Pulse Rate 123 H 126 H 123 H Pulse Rate [ Anterior Bilateral Throughout] Pulse Rate [ 124 H From Monitor] Pulse Rate [ Right Lower Lobe] Pulse Rate [ Throughout] Respiratory 24 20 20 Rate Respiratory Rate [Anterior Bilateral Throughout] Respiratory Rate [Right Lower Lobe] Respiratory Rate [ Throughout] Blood Pressure 137/79 146/101 146/101 O2 Sat by Pulse 100 100 100 Oximetry O2 Sat by Pulse Oximetry [ Right Lower Lobe] 02/08/17 02/08/17 02/08/17 08:35 08:38 08:48 Temperature Pulse Rate 100 H Pulse Rate [ 117 H Anterior Bilateral Throughout] Pulse Rate [ From Monitor] Pulse Rate [ 121 H 118 H Right Lower Lobe] Pulse Rate [ 119 H 120 H Throughout] Respiratory Rate Respiratory 33 H Rate [Anterior Bilateral Throughout] Respiratory 24 32 H Rate [Right Lower Lobe] Respiratory 32 H 36 H Rate [ Throughout] Blood Pressure 146/101 O2 Sat by Pulse 100 Oximetry O2 Sat by Pulse Oximetry [ Right Lower Lobe] 02/08/17 02/08/17 02/08/17 09:00 09:31 10:00 Temperature Pulse Rate 121 H 122 H 125 H Pulse Rate [ Anterior Bilateral Throughout] Pulse Rate [ From Monitor] Pulse Rate [ Right Lower Lobe] Pulse Rate [ Throughout] Respiratory 34 H 37 H 38 H Rate Respiratory Rate [Anterior Bilateral Throughout] Respiratory Rate [Right Lower Lobe] Respiratory Rate [ Throughout] Blood Pressure 136/96 136/96 138/84 O2 Sat by Pulse 100 100 100 Oximetry O2 Sat by Pulse Oximetry [ Right Lower Lobe] 02/08/17 02/08/17 02/08/17 10:31 10:34 11:00 Temperature Pulse Rate 134 H 120 H 132 H Pulse Rate [ Anterior Bilateral Throughout] Pulse Rate [ From Monitor] Pulse Rate [ Right Lower Lobe] Pulse Rate [ Throughout] Respiratory 32 H 41 H Rate Respiratory Rate [Anterior Bilateral Throughout] Respiratory Rate [Right Lower Lobe] Respiratory Rate [ Throughout] Blood Pressure 138/84 130/81 O2 Sat by Pulse 100 96 Oximetry O2 Sat by Pulse Oximetry [ Right Lower Lobe] 02/08/17 02/08/17 02/08/17 11:31 12:00 13:00 Temperature 97.9 F Pulse Rate 119 H 132 H 136 H Pulse Rate [ Anterior Bilateral Throughout] Pulse Rate [ From Monitor] Pulse Rate [ Right Lower Lobe] Pulse Rate [ Throughout] Respiratory 40 H 40 H 25 H Rate Respiratory Rate [Anterior Bilateral Throughout] Respiratory Rate [Right Lower Lobe] Respiratory Rate [ Throughout] Blood Pressure 130/81 133/89 142/99 O2 Sat by Pulse 100 99 Oximetry O2 Sat by Pulse 100 Oximetry [ Right Lower Lobe] - General Appearance General appearance: chronically ill, frail EENT: PERRL, mucous membranes moist Neck: other (patient has a tracheostomy tube in place. Connected to the ventilator) Respiratory: Present: Clear to Ascultation Cardiology: regular, normal heart rate Gastrointestinal: normoactive bowel sounds, other (collection bag noted in her right lower quadrant) Integumentary: other (1+ edema) - Lab 02/05/17 09:59 02/08/17 04:00 Most recent lab results ABG pH 7.450 pH Units (7.350-7.450) 12/05/16 Unknown ABG pCO2 29.6 mm Hg 12/05/16 Unknown ABG pO2 75.2 mm Hg (80.0-90.0) L 12/05/16 Unknown ABG HCO3 20.1 mmol/L (20.0-26.0) 12/05/16 Unknown ABG O2 Saturation 96.8 % (95.0-99.0) 12/05/16 Unknown Calcium 10.0 mg/dL (8.4-10.2) 02/08/17 04:00 Phosphorus 2.90 mg/dL (2.5-4.5) 02/08/17 04:00 Magnesium 1.60 mg/dL (1.7-2.3) L 02/08/17 04:00 Urine Creatinine 19.7 mg/dL (0.1-20.0) 11/12/16 10:18 Urine Sodium 36 mEq/L 09/16/16 19:19 Urine Total Protein 16 mg/dL (5-11.8) H 09/16/16 19:19
[2017-02-08] MEDS: HEPARIN IV PRN (16:39)
--- NOTE | 2017-02-08 16:47 | Progress Note ---
Assessment and Plan Assessment and plan: -- Massive stroke with mass effect, vegetative stage; supportive care -- Acute hypoxic respiratory failure, s/p tracheostomy vent dependent -- Paroxysmal atrial fibrillation with RVR, failed cardioversion, beta blockers , not a candidate for anticoagulation -- Multiple episodes of sepsis with septic shock during her hospitalization s/p aspiration pneumonia/peritonitis from gastric perforation/UTI/candidemia/ decubitus ulcer s/p sacral decubitus debridement, Right pleural effusion - scheduled for chest ultrasound for possible thoracentesis Currently on meropenem with stop date 02/04 --Pleural effusion ; IR tried to place chest tube,very little pleural fluid, only 3-5 mL -- Acute renal failure/ ATN, received dialysis as needed -- Diabetes, stable, Accu-Chek sliding scale coverage and ADA diet and insulin as needed -- Anemia, s/p multiple PRBC transfusions -- Severe protein calorie malnutrition, supportive care to feeding -- full code, poor prognosis Family aware of patient's condition and poor prognosis Had multiple family meetings in the past, family wants everything to be done Discharge planning; possible placement, social issues History Interval history: Patient seen and evaluated medical records reviewed Clinically no change Vital signs reviewed Hospitalist Physical - Constitutional Vitals: Temp Pulse Resp BP Pulse Ox 97.9 F 144 H 17 124/90 100 02/08/17 16:36 02/08/17 16:36 02/08/17 16:36 02/08/17 16:36 02/08/17 16:36 General appearance: Present: no acute distress, well-nourished, other ( tracheostomy on vent) - EENT Eyes: Present: PERRL, EOM intact - Neck Neck: Present: supple - Respiratory Respiratory effort: normal Respiratory: bilateral: diminished, rhonchi, negative: rales, wheezing - Cardiovascular Rhythm: regular Heart Sounds: Present: S1 & S2 - Extremities Extremities: no ischemia Extremity abnormal: edema - Abdominal General gastrointestinal: soft, non-tender, non-distended, normal bowel sounds, other (PEG tube in place) - Integumentary Integumentary: Present: clear, warm - Psychiatric Psychiatric: appropriate mood/affect, cooperative - Neurologic Neurologic: CNII-XII intact, moves all extremities Results - Labs CBC & Chem 7: 02/05/17 09:59 02/08/17 04:00 Labs: Laboratory Last Values WBC 10.2 K/mm3 (4.5-11.0) 02/05/17 09:59 RBC 2.69 M/mm3 (3.65-5.03) L 02/05/17 09:59 Hgb 7.2 gm/dl (10.1-14.3) L 02/05/17 09:59 Hct 22.5 % (30.3-42.9) L 02/05/17 09:59 MCV 84 fl (79-97) 02/05/17 09:59 MCH 27 pg (28-32) L 02/05/17 09:59 MCHC 32 % (30-34) 02/05/17 09:59 RDW 18.6 % (13.2-15.2) H 02/05/17 09:59 Plt Count 272 K/mm3 (140-440) 02/05/17 09:59 Lymph % (Auto) 19.3 % (13.4-35.0) 02/05/17 09:59 Mora % (Auto) 9.2 % (0.0-7.3) H 02/05/17 09:59 Eos % (Auto) 1.8 % (0.0-4.3) 02/05/17 09:59 Baso % (Auto) 0.5 % (0.0-1.8) 02/05/17 09:59 Lymph # 2.0 K/mm3 (1.2-5.4) 02/05/17 09:59 Mora # 0.9 K/mm3 (0.0-0.8) H 02/05/17 09:59 Eos # 0.2 K/mm3 (0.0-0.4) 02/05/17 09:59 Baso # 0.0 K/mm3 (0.0-0.1) 02/05/17 09:59 Add Manual Diff Complete 12/19/16 05:02 Total Counted 100 12/19/16 05:02 Seg Neutrophils % 69.2 % (40.0-70.0) 02/05/17 09:59 Seg Neuts % (Manual) 64.0 % (40.0-70.0) 12/19/16 05:02 Band Neutrophils % 15.0 % 12/19/16 05:02 Lymphocytes % (Manual) 13.0 % (13.4-35.0) L 12/19/16 05:02 Reactive Lymphs % (Man) 0 % 12/19/16 05:02 Monocytes % (Manual) 7.0 % (0.0-7.3) 12/19/16 05:02 Eosinophils % (Manual) 0 % (0.0-4.3) 12/19/16 05:02 Basophils % (Manual) 1.0 % (0.0-1.8) 12/19/16 05:02 Metamyelocytes % 0 % 12/19/16 05:02 Myelocytes % 0 % 12/19/16 05:02 Promyelocytes % 0 % 12/19/16 05:02 Blast Cells % 0 % 12/19/16 05:02 Nucleated RBC % 1.0 % (0.0-0.9) H 12/19/16 05:02 Seg Neutrophils # 7.1 K/mm3 (1.8-7.7) 02/05/17 09:59 Seg Neutrophils # Man 12.9 K/mm3 (1.8-7.7) H 12/19/16 05:02 Band Neutrophils # 3.0 K/mm3 12/19/16 05:02 Lymphocytes # (Manual) 2.6 K/mm3 (1.2-5.4) 12/19/16 05:02 Abs React Lymphs (Man) 0.0 K/mm3 12/19/16 05:02 Monocytes # (Manual) 1.4 K/mm3 (0.0-0.8) H 12/19/16 05:02 Eosinophils # (Manual) 0.0 K/mm3 (0.0-0.4) 12/19/16 05:02 Basophils # (Manual) 0.2 K/mm3 (0.0-0.1) H 12/19/16 05:02 Metamyelocytes # 0.0 K/mm3 12/19/16 05:02 Myelocytes # 0.0 K/mm3 12/19/16 05:02 Promyelocytes # 0.0 K/mm3 12/19/16 05:02 Blast Cells # 0.0 K/mm3 12/19/16 05:02 Pathologist Review 09/13/16 04:00 WBC Morphology Not Reportable 12/19/16 05:02 Hypersegmented Neuts Not Reportable 12/19/16 05:02 Hyposegmented Neuts Not Reportable 12/19/16 05:02 Hypogranular Neuts Not Reportable 12/19/16 05:02 Smudge Cells Not Reportable 12/19/16 05:02 Toxic Granulation Not Reportable 12/19/16 05:02 Toxic Vacuolation Not Reportable 12/19/16 05:02 Dohle Bodies Not Reportable 12/19/16 05:02 Pelger-Huet Anomaly Not Reportable 12/19/16 05:02 Jasmina Rods Not Reportable 12/19/16 05:02 Platelet Estimate Consistent w auto 12/19/16 05:02 Clumped Platelets Not Reportable 12/19/16 05:02 Plt Clumps, EDTA Not Reportable 12/19/16 05:02 Large Platelets Not Reportable 12/19/16 05:02 Giant Platelets Not Reportable 12/19/16 05:02 Platelet Satelliting Not Reportable 12/19/16 05:02 Plt Morphology Comment Not Reportable 12/19/16 05:02 RBC Morphology Not Reportable 12/19/16 05:02 Dimorphic RBCs Not Reportable 12/19/16 05:02 Polychromasia Not Reportable 12/19/16 05:02 Hypochromasia Not Reportable 12/19/16 05:02 Poikilocytosis Not Reportable 12/19/16 05:02 Anisocytosis Not Reportable 12/19/16 05:02 Microcytosis Not Reportable 12/19/16 05:02 Macrocytosis Not Reportable 12/19/16 05:02 Spherocytes Not Reportable 12/19/16 05:02 Pappenheimer Bodies Not Reportable 12/19/16 05:02 Sickle Cells Not Reportable 12/19/16 05:02 Target Cells Few 12/19/16 05:02 Tear Drop Cells Not Reportable 12/19/16 05:02 Ovalocytes Not Reportable 12/19/16 05:02 Stomatocytes Rare 12/03/16 04:00 Helmet Cells Not Reportable 12/19/16 05:[address] [place] Bodies Not Reportable 12/19/16 05:02 [place] Rings Not Reportable 12/19/16 05:02 Chuck Cells Not Reportable 12/19/16 05:02 Bite Cells Not Reportable 12/19/16 05:02 Crenated Cell Not Reportable 12/19/16 05:02 Elliptocytes Not Reportable 12/19/16 05:02 Acanthocytes (Spur) Not Reportable 12/19/16 05:02 Rouleaux Not Reportable 12/19/16 05:02 Hemoglobin C Crystals Not Reportable 12/19/16 05:02 Schistocytes Not Reportable 12/19/16 05:02 Malaria parasites Not Reportable 12/19/16 05:02 ESR > 140.0 mm/Hr (0-20) 09/08/16 11:48 Jun Bodies Not Reportable 12/19/16 05:02 Hem Pathologist Commnt No 12/19/16 05:02 PT 15.4 Sec. (12.2-14.9) H 01/13/17 15:50 INR 1.16 (0.87-1.13) H 01/13/17 15:50 APTT 33.0 Sec. (24.2-36.6) 10/09/16 03:45 Thrombin Time 16.8 Sec. (15.1-19.6) 09/03/16 00:10 Fibrinogen 750 mg/dl (211-480) H 09/08/16 11:48 Lupus Anticoagulant see below 09/12/16 09:59 LA PTT Baseline See scanned report 09/12/16 09:59 dRVVT Confirm Interp Positive (Negative) H 09/12/16 09:59 dRVVT Screen 50:50 See scanned report 09/12/16 09:59 dRVVT Mix Interpret See scanned report 09/12/16 09:59 Protein C Antigen 122 % (70-140) 09/08/16 15:35 Free Protein S 97 % normal (50-147) 09/08/16 15:35 Total Protein S 109 % (70-140) 09/08/16 15:35 Antithrombin III Ag 100 % (80-120) 09/08/16 15:35 Heparin Anti-Xa, Unfract Negative (Negative) 09/29/16 13:35 Factor V Activity 182 % (65-150) H 09/08/16 15:35 POC ABG pH 7.436 (7.35-7.45) 01/20/17 12:17 ABG pH 7.450 pH Units (7.350-7.450) 12/05/16 Unknown POC ABG pCO2 35.3 (35-45) 01/20/17 12: ABG pCO2 29.6 mm Hg 12/05/16 Unknown POC ABG pO2 70 (80-105) L 01/20/17 12: ABG pO2 75.2 mm Hg (80.0-90.0) L 12/05/16 Unknown POC ABG HCO3 23.8 01/20/17 12: ABG HCO3 20.1 mmol/L (20.0-26.0) 12/05/16 Unknown POC ABG Total CO2 25 01/20/17 12: POC ABG O2 Sat 94 01/20/17 12: ABG O2 Saturation 96.8 % (95.0-99.0) 12/05/16 Unknown ABG O2 Content 9.9 (0.0-44) 12/05/16 Unknown POC ABG Base Excess 0 01/20/17 12: ABG Base Excess -3.4 mmol/L (-2.0-3.0) L 12/05/16 Unknown ABG Hemoglobin 7.4 gm/dl (12.0-16.0) L 12/05/16 Unknown ABG Carboxyhemoglobin 1.8 % (0.0-5.0) 12/05/16 Unknown ABG Methemoglobin 0.6 % (0.0-1.5) 12/05/16 Unknown Oxyhemoglobin 94.5 % (95.0-99.0) L 12/05/16 Unknown FiO2 30 % 01/20/17 12:17 Sodium 138 mmol/L (137-145) 02/08/17 04:00 Potassium 3.8 mmol/L (3.6-5.0) 02/08/17 04:00 Chloride 99.7 mmol/L (98-107) 02/08/17 04:00 Carbon Dioxide 26 mmol/L (22-30) 02/08/17 04:00 Anion Gap 16 mmol/L 02/08/17 04:00 BUN 86 mg/dL (7-17) H 02/08/17 04:00 Creatinine 1.7 mg/dL (0.7-1.2) H 02/08/17 04:00 Estimated GFR 39 ml/min 02/08/17 04:00 BUN/Creatinine Ratio 51 % 02/08/17 04:00 Glucose 91 mg/dL (65-100) 02/08/17 04:00 POC Glucose 122 (70-105) H 02/08/17 11:43 Osmolality 351 Mosm/kg 09/16/16 11:47 Lactic Acid 2.30 mmol/L (0.7-2.0) H* 01/09/17 08:22 Calcium 10.0 mg/dL (8.4-10.2) 02/08/17 04:00 Phosphorus 2.90 mg/dL (2.5-4.5) 02/08/17 04:00 Magnesium 1.60 mg/dL (1.7-2.3) L 02/08/17 04:00 Total Bilirubin 0.40 mg/dL (0.1-1.2) 02/06/17 04:45 Direct Bilirubin 0.2 mg/dL (0-0.2) 01/28/17 04:00 Indirect Bilirubin 0.3 mg/dL 01/28/17 04:00 AST 29 units/L (5-40) 02/06/17 04:45 ALT 26 units/L (7-56) 02/06/17 04:45 Alkaline Phosphatase 199 units/L (35-129) H 02/06/17 04:45 Ammonia 27.0 umol/L (25-60) 09/07/16 08:37 Lactate Dehydrogenase 170 units/L (91-180) 01/13/17 15:50 Total Creatine Kinase 121 units/L (30-135) 09/29/16 20:12 CK-MB (CK-2) < 1.0 ng/mL (0.0-4.0) 09/29/16 20:12 CK-MB (CK-2) Rel Index 0.8 (0-4) 09/29/16 20:12 Troponin T 0.204 ng/mL (0.00-0.029) H* 09/29/16 20:12 C-Reactive Protein 8.10 mg/dL (0.00-1.30) H 01/31/17 11:12 Total Protein 6.7 g/dL (6.3-8.2) 02/06/17 04:45 Albumin 1.4 g/dL (3.9-5) L 02/06/17 04:45 Albumin/Globulin Ratio 0.3 % 02/06/17 04:45 Prealbumin 0.110 g/L (0.200-0.400) L 12/29/16 05:15 Triglycerides 55 mg/dL (2-149) 02/06/17 04:45 Cholesterol 31 mg/dL (50-199) L 09/29/16 20:12 LDL Cholesterol Direct 4 mg/dL (50-130) L 09/29/16 20:12 HDL Cholesterol 3 mg/dL (40-59) L 09/29/16 20:12 Cholesterol/HDL Ratio 10.33 % 09/29/16 20:12 Angiotensin Convert Enz See scanned report 09/08/16 11:48 Renin 0.99 ng/mL/h (0.25-5.82) 10/07/16 10:56 Aldosterone <1 ng/dL () 10/07/16 10:56 Aldosterone/Renin Dir see below 10/07/16 10:56 Serotonin Release Assay See scanned report 09/29/16 13:35 TSH 1.010 mlU/mL (0.270-4.200) 09/07/16 08:37 HCG, Qual Negative (Negative) 09/03/16 00:10 PTH Intact 6.76 pg/mL (15-65) L 01/31/17 17:50 Urine Color Yellow (Yellow) 11/05/16 13:09 Urine Turbidity Clear (Clear) 11/05/16 13:09 Urine pH 9.0 (5.0-7.0) H 11/05/16 13:09 Ur Specific [employer] [place] 1.011 (1.003-1.030) 11/05/16 13:09 Urine Protein 100 mg/dl mg/dL (Negative) 11/05/16 13:09 Urine Glucose (UA) Neg mg/dL (Negative) 11/05/16 13:09 Urine Ketones Neg mg/dL (Negative) 11/05/16 13:09 Urine Blood Neg (Negative) 11/05/16 13:09 Urine Nitrite Neg (Negative) 11/05/16 13:09 Urine Bilirubin Neg (Negative) 11/05/16 13:09 Urine Urobilinogen < 2.0 mg/dL (<2.0) 11/05/16 13:09 Ur Leukocyte Esterase Neg (Negative) 11/05/16 13:09 Urine WBC (Auto) 4.0 /HPF (0.0-6.0) 11/05/16 13:09 Urine RBC (Auto) 1.0 /HPF (0.0-6.0) 11/05/16 13:09 U Epithel Cells (Auto) 1.0 /HPF (0-13.0) 10/07/16 18:30 Urine Bacteria (Auto) 4+ /HPF (Negative) 11/05/16 13:09 Urine WBC Clumps 2+ /HPF 09/07/16 02:47 Hyaline Casts 4 /LPF 09/07/16 02:47 Urine Mucus Few /HPF 10/07/16 18:30 Urine Yeast (Budding) 3+ /HPF 10/07/16 18:30 Urine Eosinophils None seen (None Seen) 09/07/16 16:00 Urine Total Volume 950 11/12/16 10:18 Urine Creatinine 19.7 mg/dL (0.1-20.0) 11/12/16 10:18 Height (in) 65.0 inches 11/12/16 10:18 Weight (lb) 181.0 lbs 11/12/16 10:18 Creatinine Clearance 5 11/12/16 10:18 Urine Sodium 36 mEq/L 09/16/16 19:19 Urine Total Protein 16 mg/dL (5-11.8) H 09/16/16 19:19 Fluid Type Pleural 01/13/17 12:10 Fluid Color Yellow 01/13/17 12:10 Fluid Appearance Hazy 01/13/17 12:10 Fluid WBC 182 /mm3 01/13/17 12:10 Fluid RBC 41 /mm3 01/13/17 12:10 Fluid Seg Neutrophils 85.0 % 01/13/17 12:10 Fluid Lymphocytes 8.0 % 01/13/17 12:10 Fluid Reactive Lymphs 0 % 01/13/17 12:10 Fluid Monocytes 6.0 % 01/13/17 12:10 Fluid Eosinophils 1.0 % 01/13/17 12:10 Fluid Basophils 0 % 01/13/17 12:10 Fluid Total Protein 3.0 (15.0-45.0) L 01/13/17 12:10 Fluid LDH 1322 01/13/17 12:10 Fluid Comment Diff performed 01/13/17 12:10 Vancomycin Trough 2.3 ug/mL (5.0-20.0) L 09/21/16 13:00 Random Vancomycin 16.5 ug/mL (0-40.0) 11/28/16 09:45 Urine Opiates Screen Presumptive negative 09/03/16 15:11 Urine Methadone Screen Presumptive positive 09/03/16 15:11 Ur Barbiturates Screen Presumptive positive 09/03/16 15:11 Ur Phencyclidine Scrn Presumptive negative 09/03/16 15:11 Ur Amphetamines Screen Presumptive negative 09/03/16 15:11 U Benzodiazepines Scrn Presumptive negative 09/03/16 15:11 Urine Cocaine Screen Presumptive negative 09/03/16 15:11 U Marijuana (THC) Screen Presumptive positive 09/03/16 15:11 Drugs of Abuse Note Disclamer 09/03/16 15:11 Rheumatoid Factor 24 IU/ml (0-13) H 09/08/16 11:48 SAHIL Screen Negative (Negative) 09/07/16 09:20 Proteinase 3 (PR3) Ab <1.0 AI (<1.0) 09/07/16 09:20 Myeloperoxidase Ab <1.0 AI (<1.0) 09/07/16 09:20 Sjogren's Antibody <1.0 AI (<1.0) 09/08/16 15:35 Scl-70 Scleroderma Ab <1.0 AI (<1.0) 09/08/16 15:35 Centromere B Antibody <1.0 AI (<1.0) 09/08/16 12:02 Heparin-induced Plt Ab Negative (Negative) 09/29/16 13:35 UF Heparin High Dose 11 % Release 09/29/16 13:35 SUDHIR UFH Low Dose 0.1 6 % Release 09/29/16 13:35 SUDHIR UFH Low Dose 0.5 8 % Release 09/29/16 13:35 Cardiolipid IgG Ab <14 GPL (<=14) 09/12/16 09:59 Cardiolipid IgA Ab <11 APL (<=11) 09/12/16 09:59 Cardiolipid IgM Ab <12 MPL (<=12) 09/12/16 09:59 Complement C3 148 mg/dL (90-180) 09/07/16 09:20 Complement C4 58 mg/dL (16-47) H 09/07/16 09:20 RPR Nonreactive (Nonreactive) 09/08/16 11:48 Hepatitis A IgM Ab Non-reactive (NonReactive) 09/24/16 14:40 Hep Bs Antigen Non-reactive (Negative) 09/24/16 14:40 Hep B Core IgM Ab Non-reactive (NonReactive) 09/24/16 14:40 Hepatitis C Antibody Non-reactive (NonReactive) 09/24/16 14:40 HIV 1&2 Antibody Rapid Non react (Non React) 09/08/16 11:48 HIV P24 Antigen Non react (Non React) 09/08/16 11:48 Miscellaneous Test Flexitest 1 H 01/09/17 18:45 Blood Type A POSITIVE 01/25/17 11:15 Antibody Screen Negative 01/25/17 11:15 DELORIS Antibody Screen Negative 11/24/16 11:20 Crossmatch See Detail 01/25/17 11:15
--- NOTE | 2017-02-08 18:48 | Progress Note ---
Assessment and Plan Acute Hypoxemic Respiratory Failure (now with exacerbation and back on MVS) Hypertension (unable to receive p.o. meds) Atrial Fibrillation with RVR s/p tracheostomy Acute encephalopathy s/p CVA Oropharyngeal dysphagia Enterococcal bacteremia sepsis syndrome Sacral Decubitus Ulcer (s/p surgical debridement) Anemia Obesity JUANITA now on hemodialysis Enteric Fistula - continue to hold tube feeds due to continued intolerance; continue reglan at 10mg IV q8h - IR consulted for G-J tube (not a good candidate for G-J Tube per IR) - Pleural fluid cultures negative - unfortunately not a good candidate for a VATS procedure - appreciate surgery input - continue fentanyl patch for pain issues especially s/p debridement - continue wound care per WCT and RN's (she is s/p surgical debridement) - continue anti-infectives per ID recs (az now) - prn CRP & lactate levels if clinically indicated (Follow WBC also) - keep on with daily PSV trials and / or T-piece as tolerated - continue TPN administration - continue scopolamine for secretion control - continue to wean FiO2 for sats > 94% - continue bronchodilators and pulmonary toilet - VAP bundle addressed - continue prn IV metorolol (5mg IV q6h) - continue metoprolol and amlodipine (hold for hypotension) - continue to follow electrolytes and correct as necessary - continue GI & VTE prophylaxis - Continue flu & pneumovax per protocol - ethics consult placed and pending .....she remains critically ill on life sustaining interventions including MVS and at risk for further deterioration including ....34' CCT today without overlap ....care plan discussed at length during team rounds ...longterm prognosis remains guarded and this has intermittently been conveyed to family Subjective Date of service: 02/08/17 Principal diagnosis: Acute resp failure on MVS; S/P Acute CVA; Acute Encephalopathy; JUANITA Interval history: Patient is seen today for: Acute resp failure on MVS; S/P Acute CVA; Acute Encephalopathy; JUANITA Seen and examined at bedside; 24hour events reviewed; nursing and respiratory care staff consulted; no adverse overnight events reported to me; remains on MVS ; pleural fluid cultures still NGTD; AMS is persistent; No gross bleeding; no seizure activity Objective Vital Signs - 12hr 12/20/17 12/20/17 12/20/17 07:00 07:31 08:00 Temperature 99.1 F Pulse Rate 118 H 123 H 126 H Pulse Rate [ Anterior Bilateral Throughout] Pulse Rate [ 124 H From Monitor] Pulse Rate [ Right Lower Lobe] Pulse Rate [ Throughout] Respiratory 24 24 20 Rate Respiratory Rate [Anterior Bilateral Throughout] Respiratory Rate [Right Lower Lobe] Respiratory Rate [ Throughout] Blood Pressure 137/79 137/79 146/101 O2 Sat by Pulse 100 100 100 Oximetry O2 Sat by Pulse Oximetry [ Assessment] O2 Sat by Pulse Oximetry [ Right Lower Lobe] O2 Sat by Pulse Oximetry [ Throughout] 02/08/17 02/08/17 02/08/17 08:31 08:35 08:38 Temperature Pulse Rate 123 H 100 H Pulse Rate [ Anterior Bilateral Throughout] Pulse Rate [ From Monitor] Pulse Rate [ 121 H Right Lower Lobe] Pulse Rate [ 119 H Throughout] Respiratory 20 Rate Respiratory Rate [Anterior Bilateral Throughout] Respiratory 24 Rate [Right Lower Lobe] Respiratory 32 H Rate [ Throughout] Blood Pressure 146/101 146/101 O2 Sat by Pulse 100 100 Oximetry O2 Sat by Pulse Oximetry [ Assessment] O2 Sat by Pulse Oximetry [ Right Lower Lobe] O2 Sat by Pulse Oximetry [ Throughout] 02/08/17 02/08/17 02/08/17 08:48 09:00 09:31 Temperature Pulse Rate 121 H 122 H Pulse Rate [ 117 H Anterior Bilateral Throughout] Pulse Rate [ From Monitor] Pulse Rate [ 118 H Right Lower Lobe] Pulse Rate [ 120 H Throughout] Respiratory 34 H 37 H Rate Respiratory 33 H Rate [Anterior Bilateral Throughout] Respiratory 32 H Rate [Right Lower Lobe] Respiratory 36 H Rate [ Throughout] Blood Pressure 136/96 136/96 O2 Sat by Pulse 100 100 Oximetry O2 Sat by Pulse Oximetry [ Assessment] O2 Sat by Pulse Oximetry [ Right Lower Lobe] O2 Sat by Pulse Oximetry [ Throughout] 02/08/17 02/08/17 02/08/17 10:00 10:31 10:34 Temperature Pulse Rate 125 H 134 H 120 H Pulse Rate [ Anterior Bilateral Throughout] Pulse Rate [ From Monitor] Pulse Rate [ Right Lower Lobe] Pulse Rate [ Throughout] Respiratory 38 H 32 H Rate Respiratory Rate [Anterior Bilateral Throughout] Respiratory Rate [Right Lower Lobe] Respiratory Rate [ Throughout] Blood Pressure 138/84 138/84 O2 Sat by Pulse 100 100 Oximetry O2 Sat by Pulse Oximetry [ Assessment] O2 Sat by Pulse Oximetry [ Right Lower Lobe] O2 Sat by Pulse Oximetry [ Throughout] 02/08/17 02/08/17 02/08/17 11:00 11:31 12:00 Temperature 97.9 F Pulse Rate 132 H 119 H 132 H Pulse Rate [ Anterior Bilateral Throughout] Pulse Rate [ 131 H From Monitor] Pulse Rate [ Right Lower Lobe] Pulse Rate [ Throughout] Respiratory 41 H 40 H 40 H Rate Respiratory Rate [Anterior Bilateral Throughout] Respiratory Rate [Right Lower Lobe] Respiratory Rate [ Throughout] Blood Pressure 130/81 130/81 133/89 O2 Sat by Pulse 96 100 100 Oximetry O2 Sat by Pulse Oximetry [ Assessment] O2 Sat by Pulse Oximetry [ Right Lower Lobe] O2 Sat by Pulse Oximetry [ Throughout] 02/08/17 02/08/17 02/08/17 12:31 13:00 13:20 Temperature 97.9 F Pulse Rate 134 H 126 H 126 H Pulse Rate [ Anterior Bilateral Throughout] Pulse Rate [ From Monitor] Pulse Rate [ Right Lower Lobe] Pulse Rate [ Throughout] Respiratory 38 H 40 H Rate Respiratory Rate [Anterior Bilateral Throughout] Respiratory Rate [Right Lower Lobe] Respiratory Rate [ Throughout] Blood Pressure 133/89 123/86 118/76 O2 Sat by Pulse 100 100 100 Oximetry O2 Sat by Pulse Oximetry [ Assessment] O2 Sat by Pulse 100 Oximetry [ Right Lower Lobe] O2 Sat by Pulse Oximetry [ Throughout] 02/08/17 02/08/17 02/08/17 13:30 13:45 14:00 Temperature Pulse Rate 125 H 132 H 143 H Pulse Rate [ Anterior Bilateral Throughout] Pulse Rate [ From Monitor] Pulse Rate [ Right Lower Lobe] Pulse Rate [ Throughout] Respiratory 22 23 Rate Respiratory Rate [Anterior Bilateral Throughout] Respiratory Rate [Right Lower Lobe] Respiratory Rate [ Throughout] Blood Pressure 147/86 122/79 106/68 O2 Sat by Pulse 100 Oximetry O2 Sat by Pulse Oximetry [ Assessment] O2 Sat by Pulse Oximetry [ Right Lower Lobe] O2 Sat by Pulse Oximetry [ Throughout] 02/08/17 02/08/17 02/08/17 14:04 14:21 14:30 Temperature Pulse Rate 134 H 137 H 137 H Pulse Rate [ Anterior Bilateral Throughout] Pulse Rate [ From Monitor] Pulse Rate [ Right Lower Lobe] Pulse Rate [ Throughout] Respiratory 26 H Rate Respiratory Rate [Anterior Bilateral Throughout] Respiratory Rate [Right Lower Lobe] Respiratory Rate [ Throughout] Blood Pressure 106/68 114/72 109/80 O2 Sat by Pulse Oximetry O2 Sat by Pulse Oximetry [ Assessment] O2 Sat by Pulse Oximetry [ Right Lower Lobe] O2 Sat by Pulse Oximetry [ Throughout] 02/08/17 02/08/17 02/08/17 14:37 14:45 15:00 Temperature Pulse Rate 144 H 142 H 150 H Pulse Rate [ Anterior Bilateral Throughout] Pulse Rate [ From Monitor] Pulse Rate [ Right Lower Lobe] Pulse Rate [ Throughout] Respiratory 25 H Rate Respiratory Rate [Anterior Bilateral Throughout] Respiratory Rate [Right Lower Lobe] Respiratory Rate [ Throughout] Blood Pressure 109/80 108/84 102/74 O2 Sat by Pulse Oximetry O2 Sat by Pulse Oximetry [ Assessment] O2 Sat by Pulse Oximetry [ Right Lower Lobe] O2 Sat by Pulse Oximetry [ Throughout] 02/08/17 02/08/17 02/08/17 15:01 15:15 15:30 Temperature Pulse Rate 137 H 137 H 138 H Pulse Rate [ Anterior Bilateral Throughout] Pulse Rate [ From Monitor] Pulse Rate [ Right Lower Lobe] Pulse Rate [ Throughout] Respiratory 25 H Rate Respiratory Rate [Anterior Bilateral Throughout] Respiratory Rate [Right Lower Lobe] Respiratory Rate [ Throughout] Blood Pressure 102/74 98/74 83/65 O2 Sat by Pulse Oximetry O2 Sat by Pulse Oximetry [ Assessment] O2 Sat by Pulse Oximetry [ Right Lower Lobe] O2 Sat by Pulse Oximetry [ Throughout] 02/08/17 02/08/17 02/08/17 15:34 15:45 16:00 Temperature 98.0 F Pulse Rate 139 H 145 H 137 H Pulse Rate [ Anterior Bilateral Throughout] Pulse Rate [ From Monitor] Pulse Rate [ Right Lower Lobe] Pulse Rate [ Throughout] Respiratory 29 H Rate Respiratory Rate [Anterior Bilateral Throughout] Respiratory Rate [Right Lower Lobe] Respiratory Rate [ Throughout] Blood Pressure 83/65 96/74 105/78 O2 Sat by Pulse 92 Oximetry O2 Sat by Pulse Oximetry [ Assessment] O2 Sat by Pulse Oximetry [ Right Lower Lobe] O2 Sat by Pulse Oximetry [ Throughout] 02/08/17 02/08/17 02/08/17 16:02 16:15 16:20 Temperature Pulse Rate 137 H 140 H 140 H Pulse Rate [ Anterior Bilateral Throughout] Pulse Rate [ From Monitor] Pulse Rate [ 124 H Right Lower Lobe] Pulse Rate [ 118 H Throughout] Respiratory Rate Respiratory Rate [Anterior Bilateral Throughout] Respiratory 34 H Rate [Right Lower Lobe] Respiratory 32 H Rate [ Throughout] Blood Pressure 105/78 106/85 106/85 O2 Sat by Pulse Oximetry O2 Sat by Pulse Oximetry [ Assessment] O2 Sat by Pulse Oximetry [ Right Lower Lobe] O2 Sat by Pulse Oximetry [ Throughout] 02/08/17 02/08/17 02/08/17 16:25 16:30 16:35 Temperature Pulse Rate 141 H 131 H Pulse Rate [ Anterior Bilateral Throughout] Pulse Rate [ From Monitor] Pulse Rate [ 118 H Right Lower Lobe] Pulse Rate [ 120 H Throughout] Respiratory 32 H Rate Respiratory Rate [Anterior Bilateral Throughout] Respiratory 30 H Rate [Right Lower Lobe] Respiratory 30 H Rate [ Throughout] Blood Pressure 106/101 124/90 O2 Sat by Pulse 100 100 Oximetry O2 Sat by Pulse Oximetry [ Assessment] O2 Sat by Pulse Oximetry [ Right Lower Lobe] O2 Sat by Pulse Oximetry [ Throughout] 02/08/17 02/08/17 02/08/17 16:36 17:00 17:30 Temperature 97.9 F Pulse Rate 144 H 129 H 136 H Pulse Rate [ Anterior Bilateral Throughout] Pulse Rate [ From Monitor] Pulse Rate [ Right Lower Lobe] Pulse Rate [ Throughout] Respiratory 17 27 H 18 Rate Respiratory Rate [Anterior Bilateral Throughout] Respiratory Rate [Right Lower Lobe] Respiratory Rate [ Throughout] Blood Pressure 124/90 123/66 127/90 O2 Sat by Pulse 99 99 Oximetry O2 Sat by Pulse Oximetry [ Assessment] O2 Sat by Pulse Oximetry [ Right Lower Lobe] O2 Sat by Pulse 100 Oximetry [ Throughout] 02/08/17 02/08/17 17:40 18:00 Temperature Pulse Rate 126 H Pulse Rate [ Anterior Bilateral Throughout] Pulse Rate [ From Monitor] Pulse Rate [ Right Lower Lobe] Pulse Rate [ Throughout] Respiratory 19 Rate Respiratory Rate [Anterior Bilateral Throughout] Respiratory Rate [Right Lower Lobe] Respiratory Rate [ Throughout] Blood Pressure 118/76 O2 Sat by Pulse 100 Oximetry O2 Sat by Pulse 99 Oximetry [ Assessment] O2 Sat by Pulse Oximetry [ Right Lower Lobe] O2 Sat by Pulse Oximetry [ Throughout] Constitutional: appears uncomfortable, other (not tracking) Eyes: non-icteric, other (tracheostomy tube in midline of neck) ENT: oropharynx moist, oropharyngeal exudate pre Neck: supple, no lymphadenopathy, no JVD, other (no thyromegaly) Effort: mildly labored Ascultation: Bilateral: rhonchi (and referred upper airway sounds) Percussion: Right: dull (base), Bilateral: not dull Cardiovascular: regular rate and rhythm, other (no rubs / murmurs) Gastrointestinal: hypoactive bowel sounds, soft, non-tender, non-distended, other (RLQ & LUQ stomas with colostomy bags) Integumentary: decubitus ulcer (sacral; stage 4 s/p surgical debridement), other (no rash; no cellulitis; poor turgor) Extremities: no cyanosis, pulses normal, no ischemia or petechiae, edema (1+ bilaterally) Neurologic: pupils equal and round, unable to assess, other (encephalopathic) Psychiatric: other (unable to assess) CBC and BMP: 02/05/17 09:59 02/11/17 04:08 ABG, PT/INR, D-dimer: ABG POC ABG pH 7.436 (7.35-7.45) 01/20/17 12:17 ABG pH 7.450 pH Units (7.350-7.450) 12/05/16 Unknown POC ABG pCO2 35.3 (35-45) 01/20/17 12: ABG pCO2 29.6 mm Hg 12/05/16 Unknown POC ABG pO2 70 (80-105) L 01/20/17 12:17 ABG pO2 75.2 mm Hg (80.0-90.0) L 12/05/16 Unknown POC ABG HCO3 23.8 01/20/17 12: POC ABG Total CO2 25 01/20/17 12:17 POC ABG O2 Sat 94 01/20/17 12:17 ABG O2 Saturation 96.8 % (95.0-99.0) 12/05/16 Unknown PT/INR, D-dimer PT 15.4 Sec. (12.2-14.9) H 01/13/17 15:50 INR 1.16 (0.87-1.13) H 01/13/17 15:50 Abnormal lab findings: Abnormal Labs 09/03/16 09/03/16 09/03/16 00:03 00:10 00:10 WBC 13.9 H RBC 5.95 H Hgb Hct 44.0 H MCV 74 L MCH 22 L MCHC RDW 17.5 H Plt Count Lymph % (Auto) [place] % (Auto) Lymph # [place] # Baso # Seg Neutrophils % Seg Neuts % (Manual) Lymphocytes % (Manual) 54.0 H Monocytes % (Manual) Eosinophils % (Manual) Basophils % (Manual) Nucleated RBC % Seg Neutrophils # Seg Neutrophils # Man Lymphocytes # (Manual) 7.5 H Monocytes # (Manual) Eosinophils # (Manual) Basophils # (Manual) PT INR Fibrinogen dRVVT Confirm Interp Factor V Activity POC ABG pH POC ABG pCO2 POC ABG pO2 ABG pO2 ABG HCO3 ABG Base Excess ABG Hemoglobin Oxyhemoglobin Sodium Potassium 2.8 L* Chloride Carbon Dioxide 21 L BUN Creatinine 1.7 H Glucose 159 H POC Glucose 177 H Lactic Acid Calcium Phosphorus Magnesium Direct Bilirubin AST ALT Alkaline Phosphatase Lactate Dehydrogenase Troponin T C-Reactive Protein Total Protein Albumin Prealbumin Triglycerides Cholesterol LDL Cholesterol Direct HDL Cholesterol PTH Intact Urine pH Urine WBC (Auto) Urine Creatinine Urine Total Protein Fluid Total Protein Vancomycin Trough Rheumatoid Factor Complement C4 Miscellaneous Test Crossmatch 09/03/16 09/03/16 09/03/16 12:12 15:07 16:20 WBC RBC Hgb Hct MCV MCH MCHC RDW Plt Count Lymph % (Auto) [place] % (Auto) Lymph # [place] # Baso # Seg Neutrophils % Seg Neuts % (Manual) Lymphocytes % (Manual) Monocytes % (Manual) Eosinophils % (Manual) Basophils % (Manual) Nucleated RBC % Seg Neutrophils # Seg Neutrophils # Man Lymphocytes # (Manual) Monocytes # (Manual) Eosinophils # (Manual) Basophils # (Manual) PT INR Fibrinogen dRVVT Confirm Interp Factor V Activity POC ABG pH 7.452 H POC ABG pCO2 POC ABG pO2 ABG pO2 ABG HCO3 ABG Base Excess ABG Hemoglobin Oxyhemoglobin Sodium Potassium Chloride Carbon Dioxide BUN Creatinine Glucose POC Glucose 178 H Lactic Acid Calcium Phosphorus 2.20 L Magnesium 1.60 L Direct Bilirubin AST ALT Alkaline Phosphatase Lactate Dehydrogenase Troponin T C-Reactive Protein Total Protein Albumin Prealbumin Triglycerides Cholesterol LDL Cholesterol Direct HDL Cholesterol PTH Intact Urine pH Urine WBC (Auto) Urine Creatinine Urine Total Protein Fluid Total Protein Vancomycin Trough Rheumatoid Factor Complement C4 Miscellaneous Test Crossmatch 09/03/16 09/03/16 09/03/16 17:57 17:58 23:50 WBC RBC Hgb Hct MCV MCH MCHC RDW Plt Count Lymph % (Auto) [place] % (Auto) Lymph # [place] # Baso # Seg Neutrophils % Seg Neuts % (Manual) Lymphocytes % (Manual) Monocytes % (Manual) Eosinophils % (Manual) Basophils % (Manual) Nucleated RBC % Seg Neutrophils # Seg Neutrophils # Man Lymphocytes # (Manual) Monocytes # (Manual) Eosinophils # (Manual) Basophils # (Manual) PT INR Fibrinogen dRVVT Confirm Interp Factor V Activity POC ABG pH POC ABG pCO2 POC ABG pO2 ABG pO2 ABG HCO3 ABG Base Excess ABG Hemoglobin Oxyhemoglobin Sodium Potassium Chloride Carbon Dioxide BUN Creatinine Glucose POC Glucose 162 H 145 H Lactic Acid Calcium Phosphorus 2.30 L Magnesium Direct Bilirubin AST ALT Alkaline Phosphatase Lactate Dehydrogenase Troponin T C-Reactive Protein Total Protein Albumin Prealbumin Triglycerides Cholesterol LDL Cholesterol Direct HDL Cholesterol PTH Intact Urine pH Urine WBC (Auto) Urine Creatinine Urine Total Protein Fluid Total Protein Vancomycin Trough Rheumatoid Factor Complement C4 Miscellaneous Test Crossmatch 09/04/16 09/04/16 09/04/16 03:31 03:31 05:42 WBC RBC Hgb 9.7 L D Hct MCV 72 L MCH 23 L MCHC RDW 17.5 H Plt Count Lymph % (Auto) 11.1 L [place] % (Auto) Lymph # [place] # Baso # Seg Neutrophils % 84.3 H Seg Neuts % (Manual) Lymphocytes % (Manual) Monocytes % (Manual) Eosinophils % (Manual) Basophils % (Manual) Nucleated RBC % Seg Neutrophils # 8.9 H Seg Neutrophils # Man Lymphocytes # (Manual) Monocytes # (Manual) Eosinophils # (Manual) Basophils # (Manual) PT INR Fibrinogen dRVVT Confirm Interp Factor V Activity POC ABG pH POC ABG pCO2 POC ABG pO2 ABG pO2 ABG HCO3 ABG Base Excess ABG Hemoglobin Oxyhemoglobin Sodium 135 L Potassium 2.9 L* Chloride 97.2 L Carbon Dioxide 19 L BUN Creatinine 1.7 H Glucose 170 H POC Glucose 152 H Lactic Acid Calcium Phosphorus Magnesium Direct Bilirubin AST ALT Alkaline Phosphatase Lactate Dehydrogenase Troponin T C-Reactive Protein Total Protein Albumin Prealbumin Triglycerides 160 H Cholesterol LDL Cholesterol Direct HDL Cholesterol 31 L PTH Intact Urine pH Urine WBC (Auto) Urine Creatinine Urine Total Protein Fluid Total Protein Vancomycin Trough Rheumatoid Factor Complement C4 Miscellaneous Test Crossmatch 09/04/16 09/04/16 09/04/16 11:34 17:46 23:29 WBC RBC Hgb Hct MCV MCH MCHC RDW Plt Count Lymph % (Auto) [place] % (Auto) Lymph # [place] # Baso # Seg Neutrophils % Seg Neuts % (Manual) Lymphocytes % (Manual) Monocytes % (Manual) Eosinophils % (Manual) Basophils % (Manual) Nucleated RBC % Seg Neutrophils # Seg Neutrophils # Man Lymphocytes # (Manual) Monocytes # (Manual) Eosinophils # (Manual) Basophils # (Manual) PT INR Fibrinogen dRVVT Confirm Interp Factor V Activity POC ABG pH POC ABG pCO2 POC ABG pO2 ABG pO2 ABG HCO3 ABG Base Excess ABG Hemoglobin Oxyhemoglobin Sodium Potassium Chloride Carbon Dioxide BUN Creatinine Glucose POC Glucose 165 H 210 H 139 H Lactic Acid Calcium Phosphorus Magnesium Direct Bilirubin AST ALT Alkaline Phosphatase Lactate Dehydrogenase Troponin T C-Reactive Protein Total Protein Albumin Prealbumin Triglycerides Cholesterol LDL Cholesterol Direct HDL Cholesterol PTH Intact Urine pH Urine WBC (Auto) Urine Creatinine Urine Total Protein Fluid Total Protein Vancomycin Trough Rheumatoid Factor Complement C4 Miscellaneous Test Crossmatch 09/05/16 09/05/16 09/05/16 04:05 04:05 05:38 WBC RBC Hgb Hct MCV 76 L D MCH 23 L MCHC RDW 17.8 H Plt Count Lymph % (Auto) [place] % (Auto) Lymph # [place] # Baso # Seg Neutrophils % Seg Neuts % (Manual) Lymphocytes % (Manual) Monocytes % (Manual) Eosinophils % (Manual) Basophils % (Manual) Nucleated RBC % Seg Neutrophils # Seg Neutrophils # Man Lymphocytes # (Manual) Monocytes # (Manual) Eosinophils # (Manual) Basophils # (Manual) PT INR Fibrinogen dRVVT Confirm Interp Factor V Activity POC ABG pH POC ABG pCO2 POC ABG pO2 ABG pO2 ABG HCO3 ABG Base Excess ABG Hemoglobin Oxyhemoglobin Sodium 134 L Potassium Chloride Carbon Dioxide 18 L BUN Creatinine 1.8 H Glucose 192 H POC Glucose 175 H Lactic Acid Calcium Phosphorus Magnesium Direct Bilirubin AST ALT Alkaline Phosphatase Lactate Dehydrogenase Troponin T C-Reactive Protein Total Protein Albumin Prealbumin Triglycerides Cholesterol LDL Cholesterol Direct HDL Cholesterol PTH Intact Urine pH Urine WBC (Auto) Urine Creatinine Urine Total Protein Fluid Total Protein Vancomycin Trough Rheumatoid Factor Complement C4 Miscellaneous Test Crossmatch 09/05/16 09/05/16 09/05/16 11:38 17:48 23:22 WBC RBC Hgb Hct MCV MCH MCHC RDW Plt Count Lymph % (Auto) [place] % (Auto) Lymph # [place] # Baso # Seg Neutrophils % Seg Neuts % (Manual) Lymphocytes % (Manual) Monocytes % (Manual) Eosinophils % (Manual) Basophils % (Manual) Nucleated RBC % Seg Neutrophils # Seg Neutrophils # Man Lymphocytes # (Manual) Monocytes # (Manual) Eosinophils # (Manual) Basophils # (Manual) PT INR Fibrinogen dRVVT Confirm Interp Factor V Activity POC ABG pH POC ABG pCO2 POC ABG pO2 ABG pO2 ABG HCO3 ABG Base Excess ABG Hemoglobin Oxyhemoglobin Sodium Potassium Chloride Carbon Dioxide BUN Creatinine Glucose POC Glucose 164 H 186 H 195 H Lactic Acid Calcium Phosphorus Magnesium Direct Bilirubin AST ALT Alkaline Phosphatase Lactate Dehydrogenase Troponin T C-Reactive Protein Total Protein Albumin Prealbumin Triglycerides Cholesterol LDL Cholesterol Direct HDL Cholesterol PTH Intact Urine pH Urine WBC (Auto) Urine Creatinine Urine Total Protein Fluid Total Protein Vancomycin Trough Rheumatoid Factor Complement C4 Miscellaneous Test Crossmatch 09/06/16 09/06/16 09/06/16 04:12 05:59 07:32 WBC RBC Hgb Hct MCV MCH MCHC RDW Plt Count Lymph % (Auto) [place] % (Auto) Lymph # [place] # Baso # Seg Neutrophils % Seg Neuts % (Manual) Lymphocytes % (Manual) Monocytes % (Manual) Eosinophils % (Manual) Basophils % (Manual) Nucleated RBC % Seg Neutrophils # Seg Neutrophils # Man Lymphocytes # (Manual) Monocytes # (Manual) Eosinophils # (Manual) Basophils # (Manual) PT INR Fibrinogen dRVVT Confirm Interp Factor V Activity POC ABG pH 7.514 H POC ABG pCO2 29.1 L POC ABG pO2 72 L ABG pO2 ABG HCO3 ABG Base Excess ABG Hemoglobin Oxyhemoglobin Sodium 133 L Potassium 3.4 L Chloride 94.9 L Carbon Dioxide 19 L BUN 30 H Creatinine 2.1 H Glucose 139 H POC Glucose 146 H Lactic Acid Calcium Phosphorus Magnesium Direct Bilirubin AST ALT Alkaline Phosphatase Lactate Dehydrogenase Troponin T C-Reactive Protein Total Protein Albumin Prealbumin Triglycerides Cholesterol LDL Cholesterol Direct HDL Cholesterol PTH Intact Urine pH Urine WBC (Auto) Urine Creatinine Urine Total Protein Fluid Total Protein Vancomycin Trough Rheumatoid Factor Complement C4 Miscellaneous Test Crossmatch 09/06/16 09/06/16 09/06/16 11:57 17:58 19:02 WBC RBC Hgb Hct MCV MCH MCHC RDW Plt Count Lymph % (Auto) [place] % (Auto) Lymph # [place] # Baso # Seg Neutrophils % Seg Neuts % (Manual) Lymphocytes % (Manual) Monocytes % (Manual) Eosinophils % (Manual) Basophils % (Manual) Nucleated RBC % Seg Neutrophils # Seg Neutrophils # Man Lymphocytes # (Manual) Monocytes # (Manual) Eosinophils # (Manual) Basophils # (Manual) PT INR Fibrinogen dRVVT Confirm Interp Factor V Activity POC ABG pH 7.465 H POC ABG pCO2 32.0 L POC ABG pO2 ABG pO2 ABG HCO3 ABG Base Excess ABG Hemoglobin Oxyhemoglobin Sodium Potassium Chloride Carbon Dioxide BUN Creatinine Glucose POC Glucose 165 H 160 H Lactic Acid Calcium Phosphorus Magnesium Direct Bilirubin AST ALT Alkaline Phosphatase Lactate Dehydrogenase Troponin T C-Reactive Protein Total Protein Albumin Prealbumin Triglycerides Cholesterol LDL Cholesterol Direct HDL Cholesterol PTH Intact Urine pH Urine WBC (Auto) Urine Creatinine Urine Total Protein Fluid Total Protein Vancomycin Trough Rheumatoid Factor Complement C4 Miscellaneous Test Crossmatch 09/06/16 09/07/16 09/07/16 23:45 02:47 02:47 WBC RBC Hgb Hct MCV MCH MCHC RDW Plt Count Lymph % (Auto) [place] % (Auto) Lymph # [place] # Baso # Seg Neutrophils % Seg Neuts % (Manual) Lymphocytes % (Manual) Monocytes % (Manual) Eosinophils % (Manual) Basophils % (Manual) Nucleated RBC % Seg Neutrophils # Seg Neutrophils # Man Lymphocytes # (Manual) Monocytes # (Manual) Eosinophils # (Manual) Basophils # (Manual) PT INR Fibrinogen dRVVT Confirm Interp Factor V Activity POC ABG pH POC ABG pCO2 POC ABG pO2 ABG pO2 ABG HCO3 ABG Base Excess ABG Hemoglobin Oxyhemoglobin Sodium Potassium Chloride Carbon Dioxide BUN Creatinine Glucose POC Glucose 204 H Lactic Acid Calcium Phosphorus Magnesium Direct Bilirubin AST ALT Alkaline Phosphatase Lactate Dehydrogenase Troponin T C-Reactive Protein Total Protein Albumin Prealbumin Triglycerides Cholesterol LDL Cholesterol Direct HDL Cholesterol PTH Intact Urine pH Urine WBC (Auto) 68.0 H Urine Creatinine 106.1 H Urine Total Protein Fluid Total Protein Vancomycin Trough Rheumatoid Factor Complement C4 Miscellaneous Test Crossmatch 09/07/16 09/07/16 09/07/16 04:50 06:19 06:39 WBC RBC Hgb Hct MCV MCH MCHC RDW Plt Count Lymph % (Auto) [place] % (Auto) Lymph # [place] # Baso # Seg Neutrophils % Seg Neuts % (Manual) Lymphocytes % (Manual) Monocytes % (Manual) Eosinophils % (Manual) Basophils % (Manual) Nucleated RBC % Seg Neutrophils # Seg Neutrophils # Man Lymphocytes # (Manual) Monocytes # (Manual) Eosinophils # (Manual) Basophils # (Manual) PT INR Fibrinogen dRVVT Confirm Interp Factor V Activity POC ABG pH 7.457 H POC ABG pCO2 32.1 L POC ABG pO2 76 L ABG pO2 ABG HCO3 ABG Base Excess ABG Hemoglobin Oxyhemoglobin Sodium 132 L Potassium Chloride 94.7 L Carbon Dioxide BUN 53 H Creatinine 2.9 H Glucose 151 H POC Glucose 149 H Lactic Acid Calcium Phosphorus Magnesium Direct Bilirubin AST ALT Alkaline Phosphatase Lactate Dehydrogenase Troponin T C-Reactive Protein Total Protein Albumin Prealbumin Triglycerides Cholesterol LDL Cholesterol Direct HDL Cholesterol PTH Intact Urine pH Urine WBC (Auto) Urine Creatinine Urine Total Protein Fluid Total Protein Vancomycin Trough Rheumatoid Factor Complement C4 Miscellaneous Test Crossmatch 09/07/16 09/07/16 09/07/16 09:20 11:43 11:43 WBC 19.4 H RBC Hgb 8.3 L Hct 26.4 L D MCV 72 L D MCH 22 L MCHC RDW 17.9 H Plt Count Lymph % (Auto) 8.5 L [place] % (Auto) Lymph # [place] # 1.0 H Baso # Seg Neutrophils % 85.8 H Seg Neuts % (Manual) Lymphocytes % (Manual) Monocytes % (Manual) Eosinophils % (Manual) Basophils % (Manual) Nucleated RBC % Seg Neutrophils # 16.6 H Seg Neutrophils # Man Lymphocytes # (Manual) Monocytes # (Manual) Eosinophils # (Manual) Basophils # (Manual) PT INR Fibrinogen dRVVT Confirm Interp Factor V Activity POC ABG pH POC ABG pCO2 POC ABG pO2 ABG pO2 ABG HCO3 ABG Base Excess ABG Hemoglobin Oxyhemoglobin Sodium 134 L Potassium Chloride 97.2 L Carbon Dioxide 20 L BUN 58 H Creatinine 2.9 H Glucose 147 H POC Glucose Lactic Acid Calcium Phosphorus 2.40 L Magnesium 2.40 H Direct Bilirubin AST ALT Alkaline Phosphatase Lactate Dehydrogenase Troponin T C-Reactive Protein Total Protein 5.8 L Albumin 2.2 L Prealbumin Triglycerides Cholesterol LDL Cholesterol Direct HDL Cholesterol PTH Intact Urine pH Urine WBC (Auto) Urine Creatinine Urine Total Protein Fluid Total Protein Vancomycin Trough Rheumatoid Factor Complement C4 58 H Miscellaneous Test Crossmatch 09/07/16 09/07/16 09/07/16 11:50 16:00 17:31 WBC RBC Hgb Hct MCV MCH MCHC RDW Plt Count Lymph % (Auto) [place] % (Auto) Lymph # [place] # Baso # Seg Neutrophils % Seg Neuts % (Manual) Lymphocytes % (Manual) Monocytes % (Manual) Eosinophils % (Manual) Basophils % (Manual) Nucleated RBC % Seg Neutrophils # Seg Neutrophils # Man Lymphocytes # (Manual) Monocytes # (Manual) Eosinophils # (Manual) Basophils # (Manual) PT INR Fibrinogen dRVVT Confirm Interp Factor V Activity POC ABG pH POC ABG pCO2 POC ABG pO2 158 H ABG pO2 ABG HCO3 ABG Base Excess ABG Hemoglobin Oxyhemoglobin Sodium Potassium Chloride Carbon Dioxide BUN Creatinine Glucose POC Glucose 175 H Lactic Acid Calcium Phosphorus Magnesium Direct Bilirubin AST ALT Alkaline Phosphatase Lactate Dehydrogenase Troponin T C-Reactive Protein Total Protein Albumin Prealbumin Triglycerides Cholesterol LDL Cholesterol Direct HDL Cholesterol PTH Intact Urine pH Urine WBC (Auto) Urine Creatinine 66.3 H Urine Total Protein Fluid Total Protein Vancomycin Trough Rheumatoid Factor Complement C4 Miscellaneous Test Crossmatch 09/07/16 09/08/16 09/08/16 23:50 05:46 06:18 WBC 17.8 H RBC 3.58 L Hgb 8.1 L Hct 25.5 L MCV 71 L MCH 23 L MCHC RDW 18.4 H Plt Count Lymph % (Auto) [place] % (Auto) Lymph # [place] # Baso # Seg Neutrophils % Seg Neuts % (Manual) 92.0 H Lymphocytes % (Manual) 6.0 L Monocytes % (Manual) Eosinophils % (Manual) Basophils % (Manual) Nucleated RBC % Seg Neutrophils # Seg Neutrophils # Man 16.4 H Lymphocytes # (Manual) 1.1 L Monocytes # (Manual) Eosinophils # (Manual) Basophils # (Manual) PT INR Fibrinogen dRVVT Confirm Interp Factor V Activity POC ABG pH POC ABG pCO2 34.3 L POC ABG pO2 71 L ABG pO2 ABG HCO3 ABG Base Excess ABG Hemoglobin Oxyhemoglobin Sodium Potassium Chloride Carbon Dioxide BUN Creatinine Glucose POC Glucose 216 H Lactic Acid Calcium Phosphorus Magnesium Direct Bilirubin AST ALT Alkaline Phosphatase Lactate Dehydrogenase Troponin T C-Reactive Protein Total Protein Albumin Prealbumin Triglycerides Cholesterol LDL Cholesterol Direct HDL Cholesterol PTH Intact Urine pH Urine WBC (Auto) Urine Creatinine Urine Total Protein Fluid Total Protein Vancomycin Trough Rheumatoid Factor Complement C4 Miscellaneous Test Crossmatch 09/08/16 09/08/16 09/08/16 06:18 06:51 10:55 WBC RBC Hgb Hct MCV MCH MCHC RDW Plt Count Lymph % (Auto) [place] % (Auto) Lymph # [place] # Baso # Seg Neutrophils % Seg Neuts % (Manual) Lymphocytes % (Manual) Monocytes % (Manual) Eosinophils % (Manual) Basophils % (Manual) Nucleated RBC % Seg Neutrophils # Seg Neutrophils # Man Lymphocytes # (Manual) Monocytes # (Manual) Eosinophils # (Manual) Basophils # (Manual) PT INR Fibrinogen dRVVT Confirm Interp Factor V Activity POC ABG pH POC ABG pCO2 POC ABG pO2 ABG pO2 ABG HCO3 ABG Base Excess ABG Hemoglobin Oxyhemoglobin Sodium 133 L Potassium Chloride 96.9 L Carbon Dioxide 20 L BUN 63 H Creatinine 2.7 H Glucose 195 H POC Glucose 204 H 169 H Lactic Acid Calcium Phosphorus Magnesium Direct Bilirubin AST ALT Alkaline Phosphatase Lactate Dehydrogenase Troponin T C-Reactive Protein Total Protein Albumin Prealbumin Triglycerides Cholesterol LDL Cholesterol Direct HDL Cholesterol PTH Intact Urine pH Urine WBC (Auto) Urine Creatinine Urine Total Protein Fluid Total Protein Vancomycin Trough Rheumatoid Factor Complement C4 Miscellaneous Test Crossmatch 09/08/16 09/08/16 09/08/16 11:48 11:48 11:48 WBC RBC Hgb Hct MCV MCH MCHC RDW Plt Count Lymph % (Auto) [place] % (Auto) Lymph # [place] # Baso # Seg Neutrophils % Seg Neuts % (Manual) Lymphocytes % (Manual) Monocytes % (Manual) Eosinophils % (Manual) Basophils % (Manual) Nucleated RBC % Seg Neutrophils # Seg Neutrophils # Man Lymphocytes # (Manual) Monocytes # (Manual) Eosinophils # (Manual) Basophils # (Manual) PT INR Fibrinogen 750 H dRVVT Confirm Interp Factor V Activity POC ABG pH POC ABG pCO2 POC ABG pO2 ABG pO2 ABG HCO3 ABG Base Excess ABG Hemoglobin Oxyhemoglobin Sodium Potassium Chloride Carbon Dioxide BUN Creatinine Glucose POC Glucose Lactic Acid Calcium Phosphorus Magnesium Direct Bilirubin AST ALT Alkaline Phosphatase Lactate Dehydrogenase Troponin T C-Reactive Protein 15.70 H Total Protein Albumin Prealbumin Triglycerides Cholesterol LDL Cholesterol Direct HDL Cholesterol PTH Intact Urine pH Urine WBC (Auto) Urine Creatinine Urine Total Protein Fluid Total Protein Vancomycin Trough Rheumatoid Factor 24 H Complement C4 Miscellaneous Test Crossmatch 09/08/16 09/08/16 09/09/16 15:35 18:25 00:24 WBC RBC Hgb Hct MCV MCH MCHC RDW Plt Count Lymph % (Auto) [place] % (Auto) Lymph # [place] # Baso # Seg Neutrophils % Seg Neuts % (Manual) Lymphocytes % (Manual) Monocytes % (Manual) Eosinophils % (Manual) Basophils % (Manual) Nucleated RBC % Seg Neutrophils # Seg Neutrophils # Man Lymphocytes # (Manual) Monocytes # (Manual) Eosinophils # (Manual) Basophils # (Manual) PT INR Fibrinogen dRVVT Confirm Interp Factor V Activity 182 H POC ABG pH POC ABG pCO2 POC ABG pO2 ABG pO2 ABG HCO3 ABG Base Excess ABG Hemoglobin Oxyhemoglobin Sodium Potassium Chloride Carbon Dioxide BUN Creatinine Glucose POC Glucose 184 H 216 H Lactic Acid Calcium Phosphorus Magnesium Direct Bilirubin AST ALT Alkaline Phosphatase Lactate Dehydrogenase Troponin T C-Reactive Protein Total Protein Albumin Prealbumin Triglycerides Cholesterol LDL Cholesterol Direct HDL Cholesterol PTH Intact Urine pH Urine WBC (Auto) Urine Creatinine Urine Total Protein Fluid Total Protein Vancomycin Trough Rheumatoid Factor Complement C4 Miscellaneous Test Crossmatch 09/09/16 09/09/16 09/09/16 03:00 03:00 04:04 WBC 27.9 H RBC Hgb 8.7 L Hct 28.1 L MCV 72 L MCH 22 L MCHC RDW 18.4 H Plt Count 485 H Lymph % (Auto) [place] % (Auto) Lymph # [place] # Baso # Seg Neutrophils % Seg Neuts % (Manual) 77.0 H Lymphocytes % (Manual) 9.0 L Monocytes % (Manual) Eosinophils % (Manual) Basophils % (Manual) Nucleated RBC % Seg Neutrophils # Seg Neutrophils # Man 21.5 H Lymphocytes # (Manual) Monocytes # (Manual) 2.0 H Eosinophils # (Manual) Basophils # (Manual) PT INR Fibrinogen dRVVT Confirm Interp Factor V Activity POC ABG pH POC ABG pCO2 POC ABG pO2 121 H ABG pO2 ABG HCO3 ABG Base Excess ABG Hemoglobin Oxyhemoglobin Sodium 135 L Potassium Chloride 96.3 L Carbon Dioxide 21 L BUN 83 H Creatinine 3.0 H Glucose 135 H POC Glucose Lactic Acid Calcium Phosphorus Magnesium Direct Bilirubin AST ALT Alkaline Phosphatase Lactate Dehydrogenase Troponin T C-Reactive Protein Total Protein Albumin Prealbumin Triglycerides Cholesterol LDL Cholesterol Direct HDL Cholesterol PTH Intact Urine pH Urine WBC (Auto) Urine Creatinine Urine Total Protein Fluid Total Protein Vancomycin Trough Rheumatoid Factor Complement C4 Miscellaneous Test Crossmatch 09/09/16 09/09/16 09/09/16 05:41 11:55 14:13 WBC RBC Hgb Hct MCV MCH MCHC RDW Plt Count Lymph % (Auto) [place] % (Auto) Lymph # [place] # Baso # Seg Neutrophils % Seg Neuts % (Manual) Lymphocytes % (Manual) Monocytes % (Manual) Eosinophils % (Manual) Basophils % (Manual) Nucleated RBC % Seg Neutrophils # Seg Neutrophils # Man Lymphocytes # (Manual) Monocytes # (Manual) Eosinophils # (Manual) Basophils # (Manual) PT INR Fibrinogen dRVVT Confirm Interp Factor V Activity POC ABG pH POC ABG pCO2 POC ABG pO2 ABG pO2 ABG HCO3 ABG Base Excess ABG Hemoglobin Oxyhemoglobin Sodium Potassium Chloride Carbon Dioxide BUN Creatinine Glucose POC Glucose 155 H 186 H Lactic Acid Calcium Phosphorus Magnesium Direct Bilirubin AST ALT Alkaline Phosphatase Lactate Dehydrogenase Troponin T C-Reactive Protein Total Protein Albumin Prealbumin Triglycerides Cholesterol LDL Cholesterol Direct HDL Cholesterol PTH Intact Urine pH Urine WBC (Auto) 25.0 H Urine Creatinine Urine Total Protein Fluid Total Protein Vancomycin Trough Rheumatoid Factor Complement C4 Miscellaneous Test Crossmatch 09/09/16 09/09/16 09/10/16 17:33 23:13 05:09 WBC RBC Hgb Hct MCV MCH MCHC RDW Plt Count Lymph % (Auto) [place] % (Auto) Lymph # [place] # Baso # Seg Neutrophils % Seg Neuts % (Manual) Lymphocytes % (Manual) Monocytes % (Manual) Eosinophils % (Manual) Basophils % (Manual) Nucleated RBC % Seg Neutrophils # Seg Neutrophils # Man Lymphocytes # (Manual) Monocytes # (Manual) Eosinophils # (Manual) Basophils # (Manual) PT INR Fibrinogen dRVVT Confirm Interp Factor V Activity POC ABG pH POC ABG pCO2 POC ABG pO2 74 L ABG pO2 ABG HCO3 ABG Base Excess ABG Hemoglobin Oxyhemoglobin Sodium Potassium Chloride Carbon Dioxide BUN Creatinine Glucose POC Glucose 211 H 215 H Lactic Acid Calcium Phosphorus Magnesium Direct Bilirubin AST ALT Alkaline Phosphatase Lactate Dehydrogenase Troponin T C-Reactive Protein Total Protein Albumin Prealbumin Triglycerides Cholesterol LDL Cholesterol Direct HDL Cholesterol PTH Intact Urine pH Urine WBC (Auto) Urine Creatinine Urine Total Protein Fluid Total Protein Vancomycin Trough Rheumatoid Factor Complement C4 Miscellaneous Test Crossmatch 09/10/16 09/10/16 09/10/16 05:17 05:17 11:31 WBC 15.8 H RBC 3.25 L Hgb 7.3 L Hct 22.9 L MCV 71 L MCH 23 L MCHC RDW 18.4 H Plt Count Lymph % (Auto) [place] % (Auto) Lymph # [place] # Baso # Seg Neutrophils % Seg Neuts % (Manual) 91.0 H Lymphocytes % (Manual) 4.0 L Monocytes % (Manual) Eosinophils % (Manual) Basophils % (Manual) Nucleated RBC % Seg Neutrophils # Seg Neutrophils # Man 14.4 H Lymphocytes # (Manual) 0.6 L Monocytes # (Manual) Eosinophils # (Manual) Basophils # (Manual) PT INR Fibrinogen dRVVT Confirm Interp Factor V Activity POC ABG pH POC ABG pCO2 POC ABG pO2 ABG pO2 ABG HCO3 ABG Base Excess ABG Hemoglobin Oxyhemoglobin Sodium Potassium Chloride Carbon Dioxide 21 L BUN 93 H Creatinine 2.9 H Glucose 146 H POC Glucose 188 H Lactic Acid Calcium 8.1 L Phosphorus Magnesium Direct Bilirubin AST ALT Alkaline Phosphatase Lactate Dehydrogenase Troponin T C-Reactive Protein Total Protein Albumin Prealbumin Triglycerides Cholesterol LDL Cholesterol Direct HDL Cholesterol PTH Intact Urine pH Urine WBC (Auto) Urine Creatinine Urine Total Protein Fluid Total Protein Vancomycin Trough Rheumatoid Factor Complement C4 Miscellaneous Test Crossmatch 09/10/16 09/10/16 09/10/16 13:17 17:20 23:32 WBC RBC Hgb Hct MCV MCH MCHC RDW Plt Count Lymph % (Auto) [place] % (Auto) Lymph # [place] # Baso # Seg Neutrophils % Seg Neuts % (Manual) Lymphocytes % (Manual) Monocytes % (Manual) Eosinophils % (Manual) Basophils % (Manual) Nucleated RBC % Seg Neutrophils # Seg Neutrophils # Man Lymphocytes # (Manual) Monocytes # (Manual) Eosinophils # (Manual) Basophils # (Manual) PT INR Fibrinogen dRVVT Confirm Interp Factor V Activity POC ABG pH POC ABG pCO2 POC ABG pO2 ABG pO2 ABG HCO3 ABG Base Excess ABG Hemoglobin Oxyhemoglobin Sodium Potassium Chloride Carbon Dioxide BUN Creatinine Glucose POC Glucose 199 H 186 H Lactic Acid Calcium Phosphorus Magnesium Direct Bilirubin AST ALT Alkaline Phosphatase Lactate Dehydrogenase Troponin T C-Reactive Protein Total Protein Albumin Prealbumin Triglycerides Cholesterol LDL Cholesterol Direct HDL Cholesterol PTH Intact Urine pH Urine WBC (Auto) Urine Creatinine Urine Total Protein Fluid Total Protein Vancomycin Trough Rheumatoid Factor Complement C4 Miscellaneous Test Crossmatch See Detail 09/11/16 09/11/16 09/11/16 05:10 05:10 05:17 WBC 28.4 H RBC Hgb 9.2 L Hct 29.3 L D MCV 73 L MCH 23 L MCHC RDW 18.9 H Plt Count 452 H Lymph % (Auto) [place] % (Auto) Lymph # [place] # Baso # Seg Neutrophils % Seg Neuts % (Manual) 89.5 H Lymphocytes % (Manual) 2.0 L Monocytes % (Manual) Eosinophils % (Manual) Basophils % (Manual) Nucleated RBC % Seg Neutrophils # Seg Neutrophils # Man 25.4 H Lymphocytes # (Manual) 0.6 L Monocytes # (Manual) 1.3 H Eosinophils # (Manual) Basophils # (Manual) PT INR Fibrinogen dRVVT Confirm Interp Factor V Activity POC ABG pH POC ABG pCO2 POC ABG pO2 ABG pO2 ABG HCO3 ABG Base Excess ABG Hemoglobin Oxyhemoglobin Sodium 136 L Potassium Chloride Carbon Dioxide 18 L BUN 107 H Creatinine 2.6 H Glucose 187 H POC Glucose 230 H Lactic Acid Calcium 8.3 L Phosphorus Magnesium Direct Bilirubin AST ALT Alkaline Phosphatase Lactate Dehydrogenase Troponin T C-Reactive Protein Total Protein Albumin Prealbumin Triglycerides Cholesterol LDL Cholesterol Direct HDL Cholesterol PTH Intact Urine pH Urine WBC (Auto) Urine Creatinine Urine Total Protein Fluid Total Protein Vancomycin Trough Rheumatoid Factor Complement C4 Miscellaneous Test Crossmatch 09/11/16 09/11/16 09/11/16 05:55 12:02 17:32 WBC RBC Hgb Hct MCV MCH MCHC RDW Plt Count Lymph % (Auto) [place] % (Auto) Lymph # [place] # Baso # Seg Neutrophils % Seg Neuts % (Manual) Lymphocytes % (Manual) Monocytes % (Manual) Eosinophils % (Manual) Basophils % (Manual) Nucleated RBC % Seg Neutrophils # Seg Neutrophils # Man Lymphocytes # (Manual) Monocytes # (Manual) Eosinophils # (Manual) Basophils # (Manual) PT INR Fibrinogen dRVVT Confirm Interp Factor V Activity POC ABG pH POC ABG pCO2 33.8 L POC ABG pO2 ABG pO2 ABG HCO3 ABG Base Excess ABG Hemoglobin Oxyhemoglobin Sodium Potassium Chloride Carbon Dioxide BUN Creatinine Glucose POC Glucose 191 H 239 H Lactic Acid Calcium Phosphorus Magnesium Direct Bilirubin AST ALT Alkaline Phosphatase Lactate Dehydrogenase Troponin T C-Reactive Protein Total Protein Albumin Prealbumin Triglycerides Cholesterol LDL Cholesterol Direct HDL Cholesterol PTH Intact Urine pH Urine WBC (Auto) Urine Creatinine Urine Total Protein Fluid Total Protein Vancomycin Trough Rheumatoid Factor Complement C4 Miscellaneous Test Crossmatch 09/11/16 09/12/16 09/12/16 23:52 05:09 05:32 WBC RBC Hgb Hct MCV MCH MCHC RDW Plt Count Lymph % (Auto) [place] % (Auto) Lymph # [place] # Baso # Seg Neutrophils % Seg Neuts % (Manual) Lymphocytes % (Manual) Monocytes % (Manual) Eosinophils % (Manual) Basophils % (Manual) Nucleated RBC % Seg Neutrophils # Seg Neutrophils # Man Lymphocytes # (Manual) Monocytes # (Manual) Eosinophils # (Manual) Basophils # (Manual) PT INR Fibrinogen dRVVT Confirm Interp Factor V Activity POC ABG pH POC ABG pCO2 34.6 L POC ABG pO2 ABG pO2 ABG HCO3 ABG Base Excess ABG Hemoglobin Oxyhemoglobin Sodium Potassium Chloride Carbon Dioxide BUN Creatinine Glucose POC Glucose 265 H 184 H Lactic Acid Calcium Phosphorus Magnesium Direct Bilirubin AST ALT Alkaline Phosphatase Lactate Dehydrogenase Troponin T C-Reactive Protein Total Protein Albumin Prealbumin Triglycerides Cholesterol LDL Cholesterol Direct HDL Cholesterol PTH Intact Urine pH Urine WBC (Auto) Urine Creatinine Urine Total Protein Fluid Total Protein Vancomycin Trough Rheumatoid Factor Complement C4 Miscellaneous Test Crossmatch 09/12/16 09/12/16 09/12/16 06:45 06:45 07:22 WBC 31.7 H RBC 3.54 L Hgb 8.3 L Hct 25.9 L MCV 73 L MCH 23 L MCHC RDW 18.9 H Plt Count Lymph % (Auto) [place] % (Auto) Lymph # [place] # Baso # Seg Neutrophils % Seg Neuts % (Manual) 88.5 H Lymphocytes % (Manual) 4.5 L Monocytes % (Manual) Eosinophils % (Manual) Basophils % (Manual) Nucleated RBC % Seg Neutrophils # Seg Neutrophils # Man 28.1 H Lymphocytes # (Manual) Monocytes # (Manual) 1.0 H Eosinophils # (Manual) Basophils # (Manual) PT INR Fibrinogen dRVVT Confirm Interp Factor V Activity POC ABG pH POC ABG pCO2 POC ABG pO2 ABG pO2 ABG HCO3 ABG Base Excess ABG Hemoglobin Oxyhemoglobin Sodium Potassium Chloride Carbon Dioxide 20 L BUN 115 H Creatinine 2.7 H Glucose 165 H POC Glucose Lactic Acid Calcium 8.0 L Phosphorus Magnesium Direct Bilirubin AST ALT Alkaline Phosphatase Lactate Dehydrogenase Troponin T C-Reactive Protein Total Protein Albumin Prealbumin Triglycerides 217 H Cholesterol LDL Cholesterol Direct HDL Cholesterol PTH Intact Urine pH Urine WBC (Auto) Urine Creatinine Urine Total Protein Fluid Total Protein Vancomycin Trough Rheumatoid Factor Complement C4 Miscellaneous Test Crossmatch 09/12/16 09/12/16 09/12/16 07:22 09:59 12:21 WBC RBC Hgb Hct MCV MCH MCHC RDW Plt Count Lymph % (Auto) [place] % (Auto) Lymph # [place] # Baso # Seg Neutrophils % Seg Neuts % (Manual) Lymphocytes % (Manual) Monocytes % (Manual) Eosinophils % (Manual) Basophils % (Manual) Nucleated RBC % Seg Neutrophils # Seg Neutrophils # Man Lymphocytes # (Manual) Monocytes # (Manual) Eosinophils # (Manual) Basophils # (Manual) PT INR Fibrinogen dRVVT Confirm Interp Positive H Factor V Activity POC ABG pH POC ABG pCO2 POC ABG pO2 ABG pO2 ABG HCO3 ABG Base Excess ABG Hemoglobin Oxyhemoglobin Sodium Potassium Chloride Carbon Dioxide BUN Creatinine Glucose POC Glucose 224 H Lactic Acid Calcium Phosphorus Magnesium Direct Bilirubin AST ALT Alkaline Phosphatase Lactate Dehydrogenase Troponin T C-Reactive Protein 1.70 H Total Protein Albumin Prealbumin Triglycerides Cholesterol LDL Cholesterol Direct HDL Cholesterol PTH Intact Urine pH Urine WBC (Auto) Urine Creatinine Urine Total Protein Fluid Total Protein Vancomycin Trough Rheumatoid Factor Complement C4 Miscellaneous Test Crossmatch 09/12/16 09/12/16 09/13/16 16:51 23:28 04:00 WBC 45.0 H* RBC Hgb 9.4 L Hct MCV 75 L MCH 23 L MCHC RDW 19.0 H Plt Count 470 H Lymph % (Auto) [place] % (Auto) Lymph # [place] # Baso # Seg Neutrophils % Seg Neuts % (Manual) 89.0 H Lymphocytes % (Manual) 5.0 L Monocytes % (Manual) Eosinophils % (Manual) Basophils % (Manual) Nucleated RBC % Seg Neutrophils # Seg Neutrophils # Man 40.1 H Lymphocytes # (Manual) Monocytes # (Manual) Eosinophils # (Manual) Basophils # (Manual) PT INR Fibrinogen dRVVT Confirm Interp Factor V Activity POC ABG pH POC ABG pCO2 POC ABG pO2 ABG pO2 ABG HCO3 ABG Base Excess ABG Hemoglobin Oxyhemoglobin Sodium Potassium Chloride Carbon Dioxide BUN Creatinine Glucose POC Glucose 169 H 150 H Lactic Acid Calcium Phosphorus Magnesium Direct Bilirubin AST ALT Alkaline Phosphatase Lactate Dehydrogenase Troponin T C-Reactive Protein Total Protein Albumin Prealbumin Triglycerides Cholesterol LDL Cholesterol Direct HDL Cholesterol PTH Intact Urine pH Urine WBC (Auto) Urine Creatinine Urine Total Protein Fluid Total Protein Vancomycin Trough Rheumatoid Factor Complement C4 Miscellaneous Test Crossmatch 09/13/16 09/13/16 09/13/16 04:00 11:26 17:31 WBC RBC Hgb Hct MCV MCH MCHC RDW Plt Count Lymph % (Auto) [place] % (Auto) Lymph # [place] # Baso # Seg Neutrophils % Seg Neuts % (Manual) Lymphocytes % (Manual) Monocytes % (Manual) Eosinophils % (Manual) Basophils % (Manual) Nucleated RBC % Seg Neutrophils # Seg Neutrophils # Man Lymphocytes # (Manual) Monocytes # (Manual) Eosinophils # (Manual) Basophils # (Manual) PT INR Fibrinogen dRVVT Confirm Interp Factor V Activity POC ABG pH POC ABG pCO2 POC ABG pO2 ABG pO2 ABG HCO3 ABG Base Excess ABG Hemoglobin Oxyhemoglobin Sodium Potassium Chloride Carbon Dioxide 20 L BUN 116 H Creatinine 3.0 H Glucose 172 H POC Glucose 140 H 183 H Lactic Acid Calcium Phosphorus Magnesium Direct Bilirubin AST ALT Alkaline Phosphatase Lactate Dehydrogenase Troponin T C-Reactive Protein Total Protein 6.2 L Albumin 2.9 L Prealbumin Triglycerides Cholesterol LDL Cholesterol Direct HDL Cholesterol PTH Intact Urine pH Urine WBC (Auto) Urine Creatinine Urine Total Protein Fluid Total Protein Vancomycin Trough Rheumatoid Factor Complement C4 Miscellaneous Test Crossmatch 09/13/16 09/14/16 09/14/16 23:23 04:06 04:07 WBC 29.4 H RBC Hgb 8.9 L Hct 27.3 L MCV 75 L MCH 24 L MCHC RDW 19.1 H Plt Count Lymph % (Auto) [place] % (Auto) Lymph # [place] # Baso # Seg Neutrophils % Seg Neuts % (Manual) 84.0 H Lymphocytes % (Manual) 6.0 L Monocytes % (Manual) 9.0 H Eosinophils % (Manual) Basophils % (Manual) Nucleated RBC % Seg Neutrophils # Seg Neutrophils # Man 24.7 H Lymphocytes # (Manual) Monocytes # (Manual) 2.6 H Eosinophils # (Manual) Basophils # (Manual) PT INR Fibrinogen dRVVT Confirm Interp Factor V Activity POC ABG pH 7.342 L POC ABG pCO2 POC ABG pO2 116 H ABG pO2 ABG HCO3 ABG Base Excess ABG Hemoglobin Oxyhemoglobin Sodium Potassium Chloride Carbon Dioxide BUN Creatinine Glucose POC Glucose 154 H Lactic Acid Calcium Phosphorus Magnesium Direct Bilirubin AST ALT Alkaline Phosphatase Lactate Dehydrogenase Troponin T C-Reactive Protein Total Protein Albumin Prealbumin Triglycerides Cholesterol LDL Cholesterol Direct HDL Cholesterol PTH Intact Urine pH Urine WBC (Auto) Urine Creatinine Urine Total Protein Fluid Total Protein Vancomycin Trough Rheumatoid Factor Complement C4 Miscellaneous Test Crossmatch 09/14/16 09/14/16 09/14/16 04:07 05:29 12:19 WBC RBC Hgb Hct MCV MCH MCHC RDW Plt Count Lymph % (Auto) [place] % (Auto) Lymph # [place] # Baso # Seg Neutrophils % Seg Neuts % (Manual) Lymphocytes % (Manual) Monocytes % (Manual) Eosinophils % (Manual) Basophils % (Manual) Nucleated RBC % Seg Neutrophils # Seg Neutrophils # Man Lymphocytes # (Manual) Monocytes # (Manual) Eosinophils # (Manual) Basophils # (Manual) PT INR Fibrinogen dRVVT Confirm Interp Factor V Activity POC ABG pH POC ABG pCO2 POC ABG pO2 ABG pO2 ABG HCO3 ABG Base Excess ABG Hemoglobin Oxyhemoglobin Sodium 136 L Potassium Chloride Carbon Dioxide 18 L BUN 121 H Creatinine 2.8 H Glucose 214 H POC Glucose 239 H 181 H Lactic Acid Calcium Phosphorus Magnesium Direct Bilirubin AST ALT Alkaline Phosphatase Lactate Dehydrogenase Troponin T C-Reactive Protein Total Protein Albumin Prealbumin Triglycerides Cholesterol LDL Cholesterol Direct HDL Cholesterol PTH Intact Urine pH Urine WBC (Auto) Urine Creatinine Urine Total Protein Fluid Total Protein Vancomycin Trough Rheumatoid Factor Complement C4 Miscellaneous Test Crossmatch 09/14/16 09/14/16 09/15/16 18:12 23:37 05:00 WBC 26.1 H RBC 3.05 L Hgb 7.2 L Hct 22.9 L MCV 75 L MCH 24 L MCHC RDW 19.0 H Plt Count Lymph % (Auto) [place] % (Auto) Lymph # [place] # Baso # Seg Neutrophils % Seg Neuts % (Manual) Lymphocytes % (Manual) Monocytes % (Manual) Eosinophils % (Manual) Basophils % (Manual) Nucleated RBC % Seg Neutrophils # Seg Neutrophils # Man Lymphocytes # (Manual) Monocytes # (Manual) Eosinophils # (Manual) Basophils # (Manual) PT INR Fibrinogen dRVVT Confirm Interp Factor V Activity POC ABG pH POC ABG pCO2 POC ABG pO2 ABG pO2 ABG HCO3 ABG Base Excess ABG Hemoglobin Oxyhemoglobin Sodium Potassium Chloride Carbon Dioxide BUN Creatinine Glucose POC Glucose 266 H 154 H Lactic Acid Calcium Phosphorus Magnesium Direct Bilirubin AST ALT Alkaline Phosphatase Lactate Dehydrogenase Troponin T C-Reactive Protein Total Protein Albumin Prealbumin Triglycerides Cholesterol LDL Cholesterol Direct HDL Cholesterol PTH Intact Urine pH Urine WBC (Auto) Urine Creatinine Urine Total Protein Fluid Total Protein Vancomycin Trough Rheumatoid Factor Complement C4 Miscellaneous Test Crossmatch 09/15/16 09/15/16 09/15/16 05:00 05:17 12:45 WBC RBC Hgb Hct MCV MCH MCHC RDW Plt Count Lymph % (Auto) [place] % (Auto) Lymph # [place] # Baso # Seg Neutrophils % Seg Neuts % (Manual) Lymphocytes % (Manual) Monocytes % (Manual) Eosinophils % (Manual) Basophils % (Manual) Nucleated RBC % Seg Neutrophils # Seg Neutrophils # Man Lymphocytes # (Manual) Monocytes # (Manual) Eosinophils # (Manual) Basophils # (Manual) PT INR Fibrinogen dRVVT Confirm Interp Factor V Activity POC ABG pH POC ABG pCO2 POC ABG pO2 ABG pO2 ABG HCO3 ABG Base Excess ABG Hemoglobin Oxyhemoglobin Sodium Potassium 5.2 H Chloride Carbon Dioxide 18 L BUN 139 H Creatinine 3.7 H Glucose 227 H POC Glucose 226 H 244 H Lactic Acid Calcium 8.3 L Phosphorus Magnesium Direct Bilirubin AST ALT Alkaline Phosphatase Lactate Dehydrogenase Troponin T C-Reactive Protein Total Protein Albumin Prealbumin Triglycerides Cholesterol LDL Cholesterol Direct HDL Cholesterol PTH Intact Urine pH Urine WBC (Auto) Urine Creatinine Urine Total Protein Fluid Total Protein Vancomycin Trough Rheumatoid Factor Complement C4 Miscellaneous Test Crossmatch 09/15/16 09/15/16 09/15/16 14:32 17:33 23:35 WBC RBC Hgb Hct MCV MCH MCHC RDW Plt Count Lymph % (Auto) [place] % (Auto) Lymph # [place] # Baso # Seg Neutrophils % Seg Neuts % (Manual) Lymphocytes % (Manual) Monocytes % (Manual) Eosinophils % (Manual) Basophils % (Manual) Nucleated RBC % Seg Neutrophils # Seg Neutrophils # Man Lymphocytes # (Manual) Monocytes # (Manual) Eosinophils # (Manual) Basophils # (Manual) PT INR Fibrinogen dRVVT Confirm Interp Factor V Activity POC ABG pH POC ABG pCO2 27.7 L POC ABG pO2 120 H ABG pO2 ABG HCO3 ABG Base Excess ABG Hemoglobin Oxyhemoglobin Sodium Potassium Chloride Carbon Dioxide BUN Creatinine Glucose POC Glucose 232 H 167 H Lactic Acid Calcium Phosphorus Magnesium Direct Bilirubin AST ALT Alkaline Phosphatase Lactate Dehydrogenase Troponin T C-Reactive Protein Total Protein Albumin Prealbumin Triglycerides Cholesterol LDL Cholesterol Direct HDL Cholesterol PTH Intact Urine pH Urine WBC (Auto) Urine Creatinine Urine Total Protein Fluid Total Protein Vancomycin Trough Rheumatoid Factor Complement C4 Miscellaneous Test Crossmatch 09/16/16 09/16/16 09/16/16 03:58 10:27 10:27 WBC 19.0 H RBC 2.77 L Hgb 6.5 L Hct 20.9 L MCV 76 L MCH 23 L MCHC RDW 19.3 H Plt Count Lymph % (Auto) 11.0 L [place] % (Auto) Lymph # [place] # 1.1 H Baso # Seg Neutrophils % 82.5 H Seg Neuts % (Manual) Lymphocytes % (Manual) Monocytes % (Manual) Eosinophils % (Manual) Basophils % (Manual) Nucleated RBC % Seg Neutrophils # 15.7 H Seg Neutrophils # Man Lymphocytes # (Manual) Monocytes # (Manual) Eosinophils # (Manual) Basophils # (Manual) PT INR Fibrinogen dRVVT Confirm Interp Factor V Activity POC ABG pH POC ABG pCO2 POC ABG pO2 ABG pO2 ABG HCO3 ABG Base Excess ABG Hemoglobin Oxyhemoglobin Sodium Potassium Chloride 109.3 H Carbon Dioxide 18 L BUN 139 H Creatinine 4.1 H Glucose 144 H POC Glucose 146 H Lactic Acid Calcium 8.1 L Phosphorus Magnesium Direct Bilirubin AST ALT Alkaline Phosphatase Lactate Dehydrogenase Troponin T C-Reactive Protein Total Protein Albumin Prealbumin Triglycerides Cholesterol LDL Cholesterol Direct HDL Cholesterol PTH Intact Urine pH Urine WBC (Auto) Urine Creatinine Urine Total Protein Fluid Total Protein Vancomycin Trough Rheumatoid Factor Complement C4 Miscellaneous Test Crossmatch 09/16/16 09/16/16 09/16/16 12:04 12:10 13:55 WBC RBC Hgb Hct MCV MCH MCHC RDW Plt Count Lymph % (Auto) [place] % (Auto) Lymph # [place] # Baso # Seg Neutrophils % Seg Neuts % (Manual) Lymphocytes % (Manual) Monocytes % (Manual) Eosinophils % (Manual) Basophils % (Manual) Nucleated RBC % Seg Neutrophils # Seg Neutrophils # Man Lymphocytes # (Manual) Monocytes # (Manual) Eosinophils # (Manual) Basophils # (Manual) PT INR Fibrinogen dRVVT Confirm Interp Factor V Activity POC ABG pH POC ABG pCO2 32.9 L POC ABG pO2 ABG pO2 ABG HCO3 ABG Base Excess ABG Hemoglobin Oxyhemoglobin Sodium Potassium Chloride Carbon Dioxide BUN Creatinine Glucose POC Glucose 185 H Lactic Acid Calcium Phosphorus Magnesium Direct Bilirubin AST ALT Alkaline Phosphatase Lactate Dehydrogenase Troponin T C-Reactive Protein Total Protein Albumin Prealbumin Triglycerides Cholesterol LDL Cholesterol Direct HDL Cholesterol PTH Intact Urine pH Urine WBC (Auto) Urine Creatinine Urine Total Protein Fluid Total Protein Vancomycin Trough Rheumatoid Factor Complement C4 Miscellaneous Test Crossmatch See Detail 09/16/16 09/16/16 09/16/16 17:55 19:19 23:48 WBC RBC Hgb Hct MCV MCH MCHC RDW Plt Count Lymph % (Auto) [place] % (Auto) Lymph # [place] # Baso # Seg Neutrophils % Seg Neuts % (Manual) Lymphocytes % (Manual) Monocytes % (Manual) Eosinophils % (Manual) Basophils % (Manual) Nucleated RBC % Seg Neutrophils # Seg Neutrophils # Man Lymphocytes # (Manual) Monocytes # (Manual) Eosinophils # (Manual) Basophils # (Manual) PT INR Fibrinogen dRVVT Confirm Interp Factor V Activity POC ABG pH POC ABG pCO2 POC ABG pO2 ABG pO2 ABG HCO3 ABG Base Excess ABG Hemoglobin Oxyhemoglobin Sodium Potassium Chloride Carbon Dioxide BUN Creatinine Glucose POC Glucose 222 H 107 H Lactic Acid Calcium Phosphorus Magnesium Direct Bilirubin AST ALT Alkaline Phosphatase Lactate Dehydrogenase Troponin T C-Reactive Protein Total Protein Albumin Prealbumin Triglycerides Cholesterol LDL Cholesterol Direct HDL Cholesterol PTH Intact Urine pH Urine WBC (Auto) Urine Creatinine 47.4 H Urine Total Protein 16 H Fluid Total Protein Vancomycin Trough Rheumatoid Factor Complement C4 Miscellaneous Test Crossmatch 09/17/16 09/17/16 09/17/16 03:45 03:45 04:55 WBC 19.6 H RBC 3.41 L Hgb 8.5 L Hct 26.7 L MCV 78 L MCH 25 L MCHC RDW 19.9 H Plt Count Lymph % (Auto) 9.3 L [place] % (Auto) Lymph # [place] # 1.2 H Baso # Seg Neutrophils % 83.9 H Seg Neuts % (Manual) Lymphocytes % (Manual) Monocytes % (Manual) Eosinophils % (Manual) Basophils % (Manual) Nucleated RBC % Seg Neutrophils # 16.4 H Seg Neutrophils # Man Lymphocytes # (Manual) Monocytes # (Manual) Eosinophils # (Manual) Basophils # (Manual) PT INR Fibrinogen dRVVT Confirm Interp Factor V Activity POC ABG pH POC ABG pCO2 POC ABG pO2 ABG pO2 ABG HCO3 ABG Base Excess ABG Hemoglobin Oxyhemoglobin Sodium 146 H Potassium 5.1 H Chloride 110.9 H Carbon Dioxide 16 L BUN 146 H Creatinine 4.0 H Glucose 108 H POC Glucose 133 H Lactic Acid Calcium Phosphorus Magnesium 3.00 H Direct Bilirubin AST ALT Alkaline Phosphatase Lactate Dehydrogenase Troponin T C-Reactive Protein Total Protein Albumin Prealbumin Triglycerides Cholesterol LDL Cholesterol Direct HDL Cholesterol PTH Intact Urine pH Urine WBC (Auto) Urine Creatinine Urine Total Protein Fluid Total Protein Vancomycin Trough Rheumatoid Factor Complement C4 Miscellaneous Test Crossmatch 09/17/16 09/17/1609/17/17 11:15 17:33 23:47 WBC RBC Hgb Hct MCV MCH MCHC RDW Plt Count Lymph % (Auto) [place] % (Auto) Lymph # [place] # Baso # Seg Neutrophils % Seg Neuts % (Manual) Lymphocytes % (Manual) Monocytes % (Manual) Eosinophils % (Manual) Basophils % (Manual) Nucleated RBC % Seg Neutrophils # Seg Neutrophils # Man Lymphocytes # (Manual) Monocytes # (Manual) Eosinophils # (Manual) Basophils # (Manual) PT INR Fibrinogen dRVVT Confirm Interp Factor V Activity POC ABG pH POC ABG pCO2 POC ABG pO2 ABG pO2 ABG HCO3 ABG Base Excess ABG Hemoglobin Oxyhemoglobin Sodium Potassium Chloride Carbon Dioxide BUN Creatinine Glucose POC Glucose 176 H 246 H 148 H Lactic Acid Calcium Phosphorus Magnesium Direct Bilirubin AST ALT Alkaline Phosphatase Lactate Dehydrogenase Troponin T C-Reactive Protein Total Protein Albumin Prealbumin Triglycerides Cholesterol LDL Cholesterol Direct HDL Cholesterol PTH Intact Urine pH Urine WBC (Auto) Urine Creatinine Urine Total Protein Fluid Total Protein Vancomycin Trough Rheumatoid Factor Complement C4 Miscellaneous Test Crossmatch 09/18/16 09/18/16 09/18/16 05:33 08:31 08:31 WBC 18.0 H RBC 3.17 L Hgb 9.0 L Hct 25.7 L MCV MCH MCHC 35 H RDW 20.4 H Plt Count Lymph % (Auto) [place] % (Auto) Lymph # [place] # Baso # Seg Neutrophils % Seg Neuts % (Manual) Lymphocytes % (Manual) Monocytes % (Manual) Eosinophils % (Manual) Basophils % (Manual) Nucleated RBC % Seg Neutrophils # Seg Neutrophils # Man Lymphocytes # (Manual) Monocytes # (Manual) Eosinophils # (Manual) Basophils # (Manual) PT INR Fibrinogen dRVVT Confirm Interp Factor V Activity POC ABG pH POC ABG pCO2 POC ABG pO2 ABG pO2 ABG HCO3 ABG Base Excess ABG Hemoglobin Oxyhemoglobin Sodium Potassium Chloride Carbon Dioxide 15 L BUN 124 H Creatinine 3.8 H Glucose POC Glucose 120 H Lactic Acid Calcium 8.1 L Phosphorus Magnesium Direct Bilirubin AST ALT Alkaline Phosphatase Lactate Dehydrogenase Troponin T C-Reactive Protein Total Protein Albumin Prealbumin Triglycerides Cholesterol LDL Cholesterol Direct HDL Cholesterol PTH Intact Urine pH Urine WBC (Auto) Urine Creatinine Urine Total Protein Fluid Total Protein Vancomycin Trough Rheumatoid Factor Complement C4 Miscellaneous Test Crossmatch 09/18/16 09/18/16 09/18/16 12:03 15:34 17:50 WBC RBC Hgb Hct MCV MCH MCHC RDW Plt Count Lymph % (Auto) [place] % (Auto) Lymph # [place] # Baso # Seg Neutrophils % Seg Neuts % (Manual) Lymphocytes % (Manual) Monocytes % (Manual) Eosinophils % (Manual) Basophils % (Manual) Nucleated RBC % Seg Neutrophils # Seg Neutrophils # Man Lymphocytes # (Manual) Monocytes # (Manual) Eosinophils # (Manual) Basophils # (Manual) PT INR Fibrinogen dRVVT Confirm Interp Factor V Activity POC ABG pH POC ABG pCO2 25.7 L POC ABG pO2 66 L ABG pO2 ABG HCO3 ABG Base Excess ABG Hemoglobin Oxyhemoglobin Sodium Potassium Chloride Carbon Dioxide BUN Creatinine Glucose POC Glucose 156 H 220 H Lactic Acid Calcium Phosphorus Magnesium Direct Bilirubin AST ALT Alkaline Phosphatase Lactate Dehydrogenase Troponin T C-Reactive Protein Total Protein Albumin Prealbumin Triglycerides Cholesterol LDL Cholesterol Direct HDL Cholesterol PTH Intact Urine pH Urine WBC (Auto) Urine Creatinine Urine Total Protein Fluid Total Protein Vancomycin Trough Rheumatoid Factor Complement C4 Miscellaneous Test Crossmatch 09/19/16 09/19/16 09/19/16 06:21 09:50 09:50 WBC 17.1 H RBC 3.49 L Hgb 9.0 L Hct 28.1 L MCV MCH 26 L MCHC RDW 20.8 H Plt Count Lymph % (Auto) 11.5 L [place] % (Auto) 7.5 H Lymph # [place] # 1.3 H Baso # Seg Neutrophils % 79.8 H Seg Neuts % (Manual) Lymphocytes % (Manual) Monocytes % (Manual) Eosinophils % (Manual) Basophils % (Manual) Nucleated RBC % Seg Neutrophils # 13.7 H Seg Neutrophils # Man Lymphocytes # (Manual) Monocytes # (Manual) Eosinophils # (Manual) Basophils # (Manual) PT INR Fibrinogen dRVVT Confirm Interp Factor V Activity POC ABG pH POC ABG pCO2 POC ABG pO2 ABG pO2 ABG HCO3 ABG Base Excess ABG Hemoglobin Oxyhemoglobin Sodium Potassium Chloride 108.6 H Carbon Dioxide 15 L BUN 125 H Creatinine 4.1 H Glucose 124 H POC Glucose 119 H Lactic Acid Calcium Phosphorus Magnesium Direct Bilirubin AST ALT Alkaline Phosphatase Lactate Dehydrogenase Troponin T C-Reactive Protein Total Protein Albumin Prealbumin Triglycerides Cholesterol LDL Cholesterol Direct HDL Cholesterol PTH Intact Urine pH Urine WBC (Auto) Urine Creatinine Urine Total Protein Fluid Total Protein Vancomycin Trough Rheumatoid Factor Complement C4 Miscellaneous Test Crossmatch 09/19/16 09/19/16 09/19/16 11:25 17:53 23:36 WBC RBC Hgb Hct MCV MCH MCHC RDW Plt Count Lymph % (Auto) [place] % (Auto) Lymph # [place] # Baso # Seg Neutrophils % Seg Neuts % (Manual) Lymphocytes % (Manual) Monocytes % (Manual) Eosinophils % (Manual) Basophils % (Manual) Nucleated RBC % Seg Neutrophils # Seg Neutrophils # Man Lymphocytes # (Manual) Monocytes # (Manual) Eosinophils # (Manual) Basophils # (Manual) PT INR Fibrinogen dRVVT Confirm Interp Factor V Activity POC ABG pH POC ABG pCO2 POC ABG pO2 ABG pO2 ABG HCO3 ABG Base Excess ABG Hemoglobin Oxyhemoglobin Sodium Potassium Chloride Carbon Dioxide BUN Creatinine Glucose POC Glucose 160 H 245 H 121 H Lactic Acid Calcium Phosphorus Magnesium Direct Bilirubin AST ALT Alkaline Phosphatase Lactate Dehydrogenase Troponin T C-Reactive Protein Total Protein Albumin Prealbumin Triglycerides Cholesterol LDL Cholesterol Direct HDL Cholesterol PTH Intact Urine pH Urine WBC (Auto) Urine Creatinine Urine Total Protein Fluid Total Protein Vancomycin Trough Rheumatoid Factor Complement C4 Miscellaneous Test Crossmatch 09/20/16 09/20/16 09/20/16 04:10 04:10 04:10 WBC 17.0 H RBC 3.21 L Hgb 8.2 L Hct 25.5 L MCV MCH 26 L MCHC RDW 20.9 H Plt Count Lymph % (Auto) [place] % (Auto) Lymph # [place] # Baso # Seg Neutrophils % Seg Neuts % (Manual) Lymphocytes % (Manual) Monocytes % (Manual) Eosinophils % (Manual) Basophils % (Manual) Nucleated RBC % Seg Neutrophils # Seg Neutrophils # Man Lymphocytes # (Manual) Monocytes # (Manual) Eosinophils # (Manual) Basophils # (Manual) PT INR Fibrinogen dRVVT Confirm Interp Factor V Activity POC ABG pH POC ABG pCO2 POC ABG pO2 ABG pO2 ABG HCO3 ABG Base Excess ABG Hemoglobin Oxyhemoglobin Sodium Potassium Chloride 111.0 H Carbon Dioxide 16 L BUN 129 H Creatinine 3.7 H Glucose 115 H POC Glucose Lactic Acid Calcium 8.2 L Phosphorus Magnesium Direct Bilirubin AST ALT Alkaline Phosphatase Lactate Dehydrogenase Troponin T C-Reactive Protein Total Protein Albumin Prealbumin Triglycerides 243 H Cholesterol LDL Cholesterol Direct HDL Cholesterol PTH Intact Urine pH Urine WBC (Auto) Urine Creatinine Urine Total Protein Fluid Total Protein Vancomycin Trough Rheumatoid Factor Complement C4 Miscellaneous Test Crossmatch 09/20/16 09/20/16 09/20/16 05:40 11:52 16:50 WBC RBC Hgb Hct MCV MCH MCHC RDW Plt Count Lymph % (Auto) [place] % (Auto) Lymph # [place] # Baso # Seg Neutrophils % Seg Neuts % (Manual) Lymphocytes % (Manual) Monocytes % (Manual) Eosinophils % (Manual) Basophils % (Manual) Nucleated RBC % Seg Neutrophils # Seg Neutrophils # Man Lymphocytes # (Manual) Monocytes # (Manual) Eosinophils # (Manual) Basophils # (Manual) PT INR Fibrinogen dRVVT Confirm Interp Factor V Activity POC ABG pH POC ABG pCO2 POC ABG pO2 ABG pO2 ABG HCO3 ABG Base Excess ABG Hemoglobin Oxyhemoglobin Sodium Potassium Chloride Carbon Dioxide BUN Creatinine Glucose POC Glucose 131 H 183 H 236 H Lactic Acid Calcium Phosphorus Magnesium Direct Bilirubin AST ALT Alkaline Phosphatase Lactate Dehydrogenase Troponin T C-Reactive Protein Total Protein Albumin Prealbumin Triglycerides Cholesterol LDL Cholesterol Direct HDL Cholesterol PTH Intact Urine pH Urine WBC (Auto) Urine Creatinine Urine Total Protein Fluid Total Protein Vancomycin Trough Rheumatoid Factor Complement C4 Miscellaneous Test Crossmatch 09/20/16 09/21/16 09/21/16 23:51 03:30 04:44 WBC RBC Hgb Hct MCV MCH MCHC RDW Plt Count Lymph % (Auto) [place] % (Auto) Lymph # [place] # Baso # Seg Neutrophils % Seg Neuts % (Manual) Lymphocytes % (Manual) Monocytes % (Manual) Eosinophils % (Manual) Basophils % (Manual) Nucleated RBC % Seg Neutrophils # Seg Neutrophils # Man Lymphocytes # (Manual) Monocytes # (Manual) Eosinophils # (Manual) Basophils # (Manual) PT INR Fibrinogen dRVVT Confirm Interp Factor V Activity POC ABG pH POC ABG pCO2 POC ABG pO2 ABG pO2 ABG HCO3 ABG Base Excess ABG Hemoglobin Oxyhemoglobin Sodium Potassium Chloride Carbon Dioxide BUN Creatinine Glucose POC Glucose 114 H 141 H Lactic Acid Calcium Phosphorus Magnesium 2.70 H Direct Bilirubin AST ALT Alkaline Phosphatase Lactate Dehydrogenase Troponin T C-Reactive Protein Total Protein Albumin Prealbumin Triglycerides Cholesterol LDL Cholesterol Direct HDL Cholesterol PTH Intact Urine pH Urine WBC (Auto) Urine Creatinine Urine Total Protein Fluid Total Protein Vancomycin Trough Rheumatoid Factor Complement C4 Miscellaneous Test Crossmatch 09/21/16 09/21/16 09/21/16 07:45 07:45 10:01 WBC 13.8 H RBC 2.94 L Hgb 7.5 L Hct 23.5 L MCV MCH 26 L MCHC RDW 21.2 H Plt Count Lymph % (Auto) 6.9 L [place] % (Auto) 9.4 H Lymph # 0.9 L [place] # 1.3 H Baso # Seg Neutrophils % 83.2 H Seg Neuts % (Manual) Lymphocytes % (Manual) Monocytes % (Manual) Eosinophils % (Manual) Basophils % (Manual) Nucleated RBC % Seg Neutrophils # 11.5 H Seg Neutrophils # Man Lymphocytes # (Manual) Monocytes # (Manual) Eosinophils # (Manual) Basophils # (Manual) PT INR Fibrinogen dRVVT Confirm Interp Factor V Activity POC ABG pH 7.308 L POC ABG pCO2 31.9 L POC ABG pO2 148 H ABG pO2 ABG HCO3 ABG Base Excess ABG Hemoglobin Oxyhemoglobin Sodium 147 H Potassium Chloride 114.2 H Carbon Dioxide 15 L BUN 120 H Creatinine 3.9 H Glucose 156 H POC Glucose Lactic Acid Calcium 8.2 L Phosphorus Magnesium Direct Bilirubin AST ALT Alkaline Phosphatase Lactate Dehydrogenase Troponin T C-Reactive Protein Total Protein Albumin Prealbumin Triglycerides Cholesterol LDL Cholesterol Direct HDL Cholesterol PTH Intact Urine pH Urine WBC (Auto) Urine Creatinine Urine Total Protein Fluid Total Protein Vancomycin Trough Rheumatoid Factor Complement C4 Miscellaneous Test Crossmatch 09/21/16 09/21/16 09/21/16 12:00 12:03 13:00 WBC RBC Hgb Hct MCV MCH MCHC RDW Plt Count Lymph % (Auto) [place] % (Auto) Lymph # [place] # Baso # Seg Neutrophils % Seg Neuts % (Manual) Lymphocytes % (Manual) Monocytes % (Manual) Eosinophils % (Manual) Basophils % (Manual) Nucleated RBC % Seg Neutrophils # Seg Neutrophils # Man Lymphocytes # (Manual) Monocytes # (Manual) Eosinophils # (Manual) Basophils # (Manual) PT INR Fibrinogen dRVVT Confirm Interp Factor V Activity POC ABG pH POC ABG pCO2 POC ABG pO2 ABG pO2 ABG HCO3 ABG Base Excess ABG Hemoglobin Oxyhemoglobin Sodium Potassium Chloride Carbon Dioxide BUN Creatinine Glucose POC Glucose 163 H Lactic Acid Calcium Phosphorus Magnesium Direct Bilirubin AST ALT Alkaline Phosphatase Lactate Dehydrogenase Troponin T C-Reactive Protein Total Protein Albumin Prealbumin Triglycerides Cholesterol LDL Cholesterol Direct HDL Cholesterol PTH Intact Urine pH Urine WBC (Auto) Urine Creatinine 54.8 H Urine Total Protein Fluid Total Protein Vancomycin Trough 2.3 L Rheumatoid Factor Complement C4 Miscellaneous Test Crossmatch 09/21/16 09/21/16 09/22/16 16:51 23:17 06:27 WBC RBC Hgb Hct MCV MCH MCHC RDW Plt Count Lymph % (Auto) [place] % (Auto) Lymph # [place] # Baso # Seg Neutrophils % Seg Neuts % (Manual) Lymphocytes % (Manual) Monocytes % (Manual) Eosinophils % (Manual) Basophils % (Manual) Nucleated RBC % Seg Neutrophils # Seg Neutrophils # Man Lymphocytes # (Manual) Monocytes # (Manual) Eosinophils # (Manual) Basophils # (Manual) PT INR Fibrinogen dRVVT Confirm Interp Factor V Activity POC ABG pH POC ABG pCO2 POC ABG pO2 ABG pO2 ABG HCO3 ABG Base Excess ABG Hemoglobin Oxyhemoglobin Sodium Potassium Chloride Carbon Dioxide BUN Creatinine Glucose POC Glucose 206 H 114 H 115 H Lactic Acid Calcium Phosphorus Magnesium Direct Bilirubin AST ALT Alkaline Phosphatase Lactate Dehydrogenase Troponin T C-Reactive Protein Total Protein Albumin Prealbumin Triglycerides Cholesterol LDL Cholesterol Direct HDL Cholesterol PTH Intact Urine pH Urine WBC (Auto) Urine Creatinine Urine Total Protein Fluid Total Protein Vancomycin Trough Rheumatoid Factor Complement C4 Miscellaneous Test Crossmatch 09/22/16 09/22/16 09/22/16 07:50 07:50 12:00 WBC 17.8 H RBC 3.04 L Hgb 8.0 L Hct 24.7 L MCV MCH 26 L MCHC RDW 21.6 H Plt Count Lymph % (Auto) [place] % (Auto) Lymph # [place] # Baso # Seg Neutrophils % Seg Neuts % (Manual) Lymphocytes % (Manual) Monocytes % (Manual) Eosinophils % (Manual) Basophils % (Manual) Nucleated RBC % Seg Neutrophils # Seg Neutrophils # Man Lymphocytes # (Manual) Monocytes # (Manual) Eosinophils # (Manual) Basophils # (Manual) PT INR Fibrinogen dRVVT Confirm Interp Factor V Activity POC ABG pH POC ABG pCO2 POC ABG pO2 ABG pO2 ABG HCO3 ABG Base Excess ABG Hemoglobin Oxyhemoglobin Sodium 150 H Potassium Chloride 118.2 H Carbon Dioxide 14 L BUN 111 H Creatinine 3.7 H Glucose 157 H POC Glucose 183 H Lactic Acid Calcium Phosphorus Magnesium Direct Bilirubin AST ALT Alkaline Phosphatase Lactate Dehydrogenase Troponin T C-Reactive Protein Total Protein Albumin Prealbumin Triglycerides Cholesterol LDL Cholesterol Direct HDL Cholesterol PTH Intact Urine pH Urine WBC (Auto) Urine Creatinine Urine Total Protein Fluid Total Protein Vancomycin Trough Rheumatoid Factor Complement C4 Miscellaneous Test Crossmatch 09/22/16 09/22/16 09/23/16 17:29 23:10 05:00 WBC 19.2 H RBC 3.13 L Hgb 8.0 L Hct 25.2 L MCV MCH 26 L MCHC RDW 22.1 H Plt Count Lymph % (Auto) [place] % (Auto) Lymph # [place] # Baso # Seg Neutrophils % Seg Neuts % (Manual) 92.0 H Lymphocytes % (Manual) 3.0 L Monocytes % (Manual) Eosinophils % (Manual) Basophils % (Manual) Nucleated RBC % Seg Neutrophils # Seg Neutrophils # Man 17.7 H Lymphocytes # (Manual) 0.6 L Monocytes # (Manual) Eosinophils # (Manual) Basophils # (Manual) PT INR Fibrinogen dRVVT Confirm Interp Factor V Activity POC ABG pH POC ABG pCO2 POC ABG pO2 ABG pO2 ABG HCO3 ABG Base Excess ABG Hemoglobin Oxyhemoglobin Sodium Potassium Chloride Carbon Dioxide BUN Creatinine Glucose POC Glucose 197 H 169 H Lactic Acid Calcium Phosphorus Magnesium Direct Bilirubin AST ALT Alkaline Phosphatase Lactate Dehydrogenase Troponin T C-Reactive Protein Total Protein Albumin Prealbumin Triglycerides Cholesterol LDL Cholesterol Direct HDL Cholesterol PTH Intact Urine pH Urine WBC (Auto) Urine Creatinine Urine Total Protein Fluid Total Protein Vancomycin Trough Rheumatoid Factor Complement C4 Miscellaneous Test Crossmatch 09/23/16 09/23/16 09/23/16 05:00 05:00 05:10 WBC RBC Hgb Hct MCV MCH MCHC RDW Plt Count Lymph % (Auto) [place] % (Auto) Lymph # [place] # Baso # Seg Neutrophils % Seg Neuts % (Manual) Lymphocytes % (Manual) Monocytes % (Manual) Eosinophils % (Manual) Basophils % (Manual) Nucleated RBC % Seg Neutrophils # Seg Neutrophils # Man Lymphocytes # (Manual) Monocytes # (Manual) Eosinophils # (Manual) Basophils # (Manual) PT INR Fibrinogen dRVVT Confirm Interp Factor V Activity POC ABG pH POC ABG pCO2 POC ABG pO2 ABG pO2 ABG HCO3 ABG Base Excess ABG Hemoglobin Oxyhemoglobin Sodium 147 H Potassium 3.2 L Chloride 115.7 H Carbon Dioxide 13 L BUN 111 H Creatinine 3.8 H Glucose 194 H POC Glucose 188 H Lactic Acid Calcium 7.3 L D Phosphorus Magnesium Direct Bilirubin AST ALT Alkaline Phosphatase Lactate Dehydrogenase Troponin T C-Reactive Protein 3.20 H Total Protein Albumin Prealbumin Triglycerides Cholesterol LDL Cholesterol Direct HDL Cholesterol PTH Intact Urine pH Urine WBC (Auto) Urine Creatinine Urine Total Protein Fluid Total Protein Vancomycin Trough Rheumatoid Factor Complement C4 Miscellaneous Test Crossmatch 09/23/16 09/23/16 09/23/16 11:37 12:29 18:01 WBC RBC Hgb Hct MCV MCH MCHC RDW Plt Count Lymph % (Auto) [place] % (Auto) Lymph # [place] # Baso # Seg Neutrophils % Seg Neuts % (Manual) Lymphocytes % (Manual) Monocytes % (Manual) Eosinophils % (Manual) Basophils % (Manual) Nucleated RBC % Seg Neutrophils # Seg Neutrophils # Man Lymphocytes # (Manual) Monocytes # (Manual) Eosinophils # (Manual) Basophils # (Manual) PT INR Fibrinogen dRVVT Confirm Interp Factor V Activity POC ABG pH POC ABG pCO2 18.9 L POC ABG pO2 143 H ABG pO2 ABG HCO3 ABG Base Excess ABG Hemoglobin Oxyhemoglobin Sodium Potassium Chloride Carbon Dioxide BUN Creatinine Glucose POC Glucose 153 H 108 H Lactic Acid Calcium Phosphorus Magnesium Direct Bilirubin AST ALT Alkaline Phosphatase Lactate Dehydrogenase Troponin T C-Reactive Protein Total Protein Albumin Prealbumin Triglycerides Cholesterol LDL Cholesterol Direct HDL Cholesterol PTH Intact Urine pH Urine WBC (Auto) Urine Creatinine Urine Total Protein Fluid Total Protein Vancomycin Trough Rheumatoid Factor Complement C4 Miscellaneous Test Crossmatch 09/23/16 09/23/16 09/24/16 21:19 23:43 05:16 WBC RBC Hgb Hct MCV MCH MCHC RDW Plt Count Lymph % (Auto) [place] % (Auto) Lymph # [place] # Baso # Seg Neutrophils % Seg Neuts % (Manual) Lymphocytes % (Manual) Monocytes % (Manual) Eosinophils % (Manual) Basophils % (Manual) Nucleated RBC % Seg Neutrophils # Seg Neutrophils # Man Lymphocytes # (Manual) Monocytes # (Manual) Eosinophils # (Manual) Basophils # (Manual) PT INR Fibrinogen dRVVT Confirm Interp Factor V Activity POC ABG pH POC ABG pCO2 17.3 L POC ABG pO2 112 H ABG pO2 ABG HCO3 ABG Base Excess ABG Hemoglobin Oxyhemoglobin Sodium Potassium Chloride Carbon Dioxide BUN Creatinine Glucose POC Glucose 143 H 164 H Lactic Acid Calcium Phosphorus Magnesium Direct Bilirubin AST ALT Alkaline Phosphatase Lactate Dehydrogenase Troponin T C-Reactive Protein Total Protein Albumin Prealbumin Triglycerides Cholesterol LDL Cholesterol Direct HDL Cholesterol PTH Intact Urine pH Urine WBC (Auto) Urine Creatinine Urine Total Protein Fluid Total Protein Vancomycin Trough Rheumatoid Factor Complement C4 Miscellaneous Test Crossmatch 09/24/16 09/24/16 09/24/16 05:21 11:58 17:06 WBC RBC Hgb Hct MCV MCH MCHC RDW Plt Count Lymph % (Auto) [place] % (Auto) Lymph # [place] # Baso # Seg Neutrophils % Seg Neuts % (Manual) Lymphocytes % (Manual) Monocytes % (Manual) Eosinophils % (Manual) Basophils % (Manual) Nucleated RBC % Seg Neutrophils # Seg Neutrophils # Man Lymphocytes # (Manual) Monocytes # (Manual) Eosinophils # (Manual) Basophils # (Manual) PT INR Fibrinogen dRVVT Confirm Interp Factor V Activity POC ABG pH POC ABG pCO2 POC ABG pO2 ABG pO2 ABG HCO3 ABG Base Excess ABG Hemoglobin Oxyhemoglobin Sodium Potassium Chloride Carbon Dioxide 10 L BUN 103 H Creatinine 4.3 H Glucose 163 H POC Glucose 173 H 167 H Lactic Acid Calcium 6.5 L Phosphorus Magnesium Direct Bilirubin AST ALT Alkaline Phosphatase Lactate Dehydrogenase Troponin T C-Reactive Protein Total Protein Albumin Prealbumin Triglycerides Cholesterol LDL Cholesterol Direct HDL Cholesterol PTH Intact Urine pH Urine WBC (Auto) Urine Creatinine Urine Total Protein Fluid Total Protein Vancomycin Trough Rheumatoid Factor Complement C4 Miscellaneous Test Crossmatch 09/24/16 09/24/16 09/24/16 20:15 21:02 23:48 WBC RBC Hgb Hct MCV MCH MCHC RDW Plt Count Lymph % (Auto) [place] % (Auto) Lymph # [place] # Baso # Seg Neutrophils % Seg Neuts % (Manual) Lymphocytes % (Manual) Monocytes % (Manual) Eosinophils % (Manual) Basophils % (Manual) Nucleated RBC % Seg Neutrophils # Seg Neutrophils # Man Lymphocytes # (Manual) Monocytes # (Manual) Eosinophils # (Manual) Basophils # (Manual) PT INR Fibrinogen dRVVT Confirm Interp Factor V Activity POC ABG pH 7.288 L POC ABG pCO2 30.2 L 21.5 L POC ABG pO2 32 L 39 L ABG pO2 ABG HCO3 ABG Base Excess ABG Hemoglobin Oxyhemoglobin Sodium Potassium Chloride Carbon Dioxide BUN Creatinine Glucose POC Glucose 109 H Lactic Acid Calcium Phosphorus Magnesium Direct Bilirubin AST ALT Alkaline Phosphatase Lactate Dehydrogenase Troponin T C-Reactive Protein Total Protein Albumin Prealbumin Triglycerides Cholesterol LDL Cholesterol Direct HDL Cholesterol PTH Intact Urine pH Urine WBC (Auto) Urine Creatinine Urine Total Protein Fluid Total Protein Vancomycin Trough Rheumatoid Factor Complement C4 Miscellaneous Test Crossmatch 09/25/16 09/25/16 09/25/16 04:20 04:20 04:20 WBC RBC 2.58 L Hgb 7.0 L Hct 21.0 L MCV MCH 27 L MCHC RDW 23.8 H Plt Count Lymph % (Auto) [place] % (Auto) Lymph # [place] # Baso # Seg Neutrophils % Seg Neuts % (Manual) Lymphocytes % (Manual) 12.0 L Monocytes % (Manual) Eosinophils % (Manual) 7.0 H Basophils % (Manual) 2.0 H Nucleated RBC % Seg Neutrophils # Seg Neutrophils # Man Lymphocytes # (Manual) 0.9 L Monocytes # (Manual) Eosinophils # (Manual) 0.5 H Basophils # (Manual) PT INR Fibrinogen dRVVT Confirm Interp Factor V Activity POC ABG pH POC ABG pCO2 POC ABG pO2 ABG pO2 ABG HCO3 ABG Base Excess ABG Hemoglobin Oxyhemoglobin Sodium Potassium Chloride Carbon Dioxide 15 L BUN 72 H Creatinine 3.8 H Glucose POC Glucose Lactic Acid Calcium 6.0 L Phosphorus 4.60 H Magnesium 1.60 L Direct Bilirubin AST ALT Alkaline Phosphatase Lactate Dehydrogenase Troponin T C-Reactive Protein Total Protein Albumin Prealbumin Triglycerides Cholesterol LDL Cholesterol Direct HDL Cholesterol PTH Intact Urine pH Urine WBC (Auto) Urine Creatinine Urine Total Protein Fluid Total Protein Vancomycin Trough Rheumatoid Factor Complement C4 Miscellaneous Test Crossmatch 09/25/16 09/25/16 09/25/16 04:57 08:02 10:30 WBC RBC Hgb Hct MCV MCH MCHC RDW Plt Count Lymph % (Auto) [place] % (Auto) Lymph # [place] # Baso # Seg Neutrophils % Seg Neuts % (Manual) Lymphocytes % (Manual) Monocytes % (Manual) Eosinophils % (Manual) Basophils % (Manual) Nucleated RBC % Seg Neutrophils # Seg Neutrophils # Man Lymphocytes # (Manual) Monocytes # (Manual) Eosinophils # (Manual) Basophils # (Manual) PT INR Fibrinogen dRVVT Confirm Interp Factor V Activity POC ABG pH POC ABG pCO2 24.7 L POC ABG pO2 152 H ABG pO2 ABG HCO3 ABG Base Excess ABG Hemoglobin Oxyhemoglobin Sodium Potassium Chloride Carbon Dioxide BUN Creatinine Glucose POC Glucose 113 H Lactic Acid Calcium Phosphorus Magnesium Direct Bilirubin AST ALT Alkaline Phosphatase Lactate Dehydrogenase Troponin T C-Reactive Protein Total Protein Albumin Prealbumin Triglycerides Cholesterol LDL Cholesterol Direct HDL Cholesterol PTH Intact Urine pH Urine WBC (Auto) Urine Creatinine Urine Total Protein Fluid Total Protein Vancomycin Trough Rheumatoid Factor Complement C4 Miscellaneous Test Crossmatch See Detail 08/08/0609/25/16 09/25/16 12:05 17:44 23:47 WBC RBC Hgb Hct MCV MCH MCHC RDW Plt Count Lymph % (Auto) [place] % (Auto) Lymph # [place] # Baso # Seg Neutrophils % Seg Neuts % (Manual) Lymphocytes % (Manual) Monocytes % (Manual) Eosinophils % (Manual) Basophils % (Manual) Nucleated RBC % Seg Neutrophils # Seg Neutrophils # Man Lymphocytes # (Manual) Monocytes # (Manual) Eosinophils # (Manual) Basophils # (Manual) PT INR Fibrinogen dRVVT Confirm Interp Factor V Activity POC ABG pH POC ABG pCO2 POC ABG pO2 ABG pO2 ABG HCO3 ABG Base Excess ABG Hemoglobin Oxyhemoglobin Sodium Potassium Chloride Carbon Dioxide BUN Creatinine Glucose POC Glucose 117 H 119 H 150 H Lactic Acid Calcium Phosphorus Magnesium Direct Bilirubin AST ALT Alkaline Phosphatase Lactate Dehydrogenase Troponin T C-Reactive Protein Total Protein Albumin Prealbumin Triglycerides Cholesterol LDL Cholesterol Direct HDL Cholesterol PTH Intact Urine pH Urine WBC (Auto) Urine Creatinine Urine Total Protein Fluid Total Protein Vancomycin Trough Rheumatoid Factor Complement C4 Miscellaneous Test Crossmatch 09/26/16 09/26/16 09/26/16 04:25 04:25 04:25 WBC RBC 2.65 L Hgb 7.4 L Hct 21.6 L MCV MCH MCHC RDW 22.5 H Plt Count Lymph % (Auto) [place] % (Auto) Lymph # [place] # Baso # Seg Neutrophils % Seg Neuts % (Manual) Lymphocytes % (Manual) 6.0 L Monocytes % (Manual) Eosinophils % (Manual) 11.0 H Basophils % (Manual) Nucleated RBC % Seg Neutrophils # Seg Neutrophils # Man Lymphocytes # (Manual) 0.4 L Monocytes # (Manual) Eosinophils # (Manual) 0.6 H Basophils # (Manual) PT INR Fibrinogen dRVVT Confirm Interp Factor V Activity POC ABG pH POC ABG pCO2 POC ABG pO2 ABG pO2 ABG HCO3 ABG Base Excess ABG Hemoglobin Oxyhemoglobin Sodium Potassium Chloride 97.0 L Carbon Dioxide 19 L BUN 43 H Creatinine 2.6 H Glucose 130 H POC Glucose Lactic Acid 4.40 H* Calcium 6.7 L Phosphorus Magnesium Direct Bilirubin AST ALT Alkaline Phosphatase Lactate Dehydrogenase Troponin T C-Reactive Protein Total Protein Albumin Prealbumin Triglycerides Cholesterol LDL Cholesterol Direct HDL Cholesterol PTH Intact Urine pH Urine WBC (Auto) Urine Creatinine Urine Total Protein Fluid Total Protein Vancomycin Trough Rheumatoid Factor Complement C4 Miscellaneous Test Crossmatch 09/26/16 09/26/16 09/26/16 05:20 11:44 12:12 WBC RBC Hgb Hct MCV MCH MCHC RDW Plt Count Lymph % (Auto) [place] % (Auto) Lymph # [place] # Baso # Seg Neutrophils % Seg Neuts % (Manual) Lymphocytes % (Manual) Monocytes % (Manual) Eosinophils % (Manual) Basophils % (Manual) Nucleated RBC % Seg Neutrophils # Seg Neutrophils # Man Lymphocytes # (Manual) Monocytes # (Manual) Eosinophils # (Manual) Basophils # (Manual) PT INR Fibrinogen dRVVT Confirm Interp Factor V Activity POC ABG pH POC ABG pCO2 27.0 L POC ABG pO2 69 L ABG pO2 ABG HCO3 ABG Base Excess ABG Hemoglobin Oxyhemoglobin Sodium Potassium Chloride Carbon Dioxide BUN Creatinine Glucose POC Glucose 121 H 128 H Lactic Acid Calcium Phosphorus Magnesium Direct Bilirubin AST ALT Alkaline Phosphatase Lactate Dehydrogenase Troponin T C-Reactive Protein Total Protein Albumin Prealbumin Triglycerides Cholesterol LDL Cholesterol Direct HDL Cholesterol PTH Intact Urine pH Urine WBC (Auto) Urine Creatinine Urine Total Protein Fluid Total Protein Vancomycin Trough Rheumatoid Factor Complement C4 Miscellaneous Test Crossmatch 09/26/16 09/26/16 09/27/16 18:31 23:40 08:20 WBC RBC Hgb Hct MCV MCH MCHC RDW Plt Count Lymph % (Auto) [place] % (Auto) Lymph # [place] # Baso # Seg Neutrophils % Seg Neuts % (Manual) Lymphocytes % (Manual) Monocytes % (Manual) Eosinophils % (Manual) Basophils % (Manual) Nucleated RBC % Seg Neutrophils # Seg Neutrophils # Man Lymphocytes # (Manual) Monocytes # (Manual) Eosinophils # (Manual) Basophils # (Manual) PT INR Fibrinogen dRVVT Confirm Interp Factor V Activity POC ABG pH POC ABG pCO2 POC ABG pO2 ABG pO2 ABG HCO3 ABG Base Excess ABG Hemoglobin Oxyhemoglobin Sodium Potassium Chloride Carbon Dioxide BUN Creatinine Glucose POC Glucose 120 H 133 H Lactic Acid 4.10 H* Calcium Phosphorus Magnesium Direct Bilirubin AST ALT Alkaline Phosphatase Lactate Dehydrogenase Troponin T C-Reactive Protein Total Protein Albumin Prealbumin Triglycerides Cholesterol LDL Cholesterol Direct HDL Cholesterol PTH Intact Urine pH Urine WBC (Auto) Urine Creatinine Urine Total Protein Fluid Total Protein Vancomycin Trough Rheumatoid Factor Complement C4 Miscellaneous Test Crossmatch 09/27/16 09/27/16 09/27/16 11:23 15:00 18:15 WBC RBC Hgb Hct MCV MCH MCHC RDW Plt Count Lymph % (Auto) [place] % (Auto) Lymph # [place] # Baso # Seg Neutrophils % Seg Neuts % (Manual) Lymphocytes % (Manual) Monocytes % (Manual) Eosinophils % (Manual) Basophils % (Manual) Nucleated RBC % Seg Neutrophils # Seg Neutrophils # Man Lymphocytes # (Manual) Monocytes # (Manual) Eosinophils # (Manual) Basophils # (Manual) PT INR Fibrinogen dRVVT Confirm Interp Factor V Activity POC ABG pH 7.459 H POC ABG pCO2 27.1 L POC ABG pO2 140 H ABG pO2 ABG HCO3 ABG Base Excess ABG Hemoglobin Oxyhemoglobin Sodium Potassium Chloride Carbon Dioxide BUN Creatinine Glucose POC Glucose 114 H 127 H Lactic Acid Calcium Phosphorus Magnesium Direct Bilirubin AST ALT Alkaline Phosphatase Lactate Dehydrogenase Troponin T C-Reactive Protein Total Protein Albumin Prealbumin Triglycerides Cholesterol LDL Cholesterol Direct HDL Cholesterol PTH Intact Urine pH Urine WBC (Auto) Urine Creatinine Urine Total Protein Fluid Total Protein Vancomycin Trough Rheumatoid Factor Complement C4 Miscellaneous Test Crossmatch 09/27/16 09/27/16 09/28/16 Unknown Unknown 03:45 WBC RBC 2.49 L Hgb 6.8 L Hct 20.7 L MCV MCH 27 L MCHC RDW 22.1 H Plt Count Lymph % (Auto) [place] % (Auto) Lymph # [place] # Baso # Seg Neutrophils % Seg Neuts % (Manual) 32.0 L Lymphocytes % (Manual) 12.0 L Monocytes % (Manual) 11.0 H Eosinophils % (Manual) 10.0 H Basophils % (Manual) Nucleated RBC % Seg Neutrophils # Seg Neutrophils # Man Lymphocytes # (Manual) 1.0 L Monocytes # (Manual) 0.9 H Eosinophils # (Manual) 0.8 H Basophils # (Manual) PT INR Fibrinogen dRVVT Confirm Interp Factor V Activity POC ABG pH POC ABG pCO2 POC ABG pO2 ABG pO2 ABG HCO3 ABG Base Excess ABG Hemoglobin Oxyhemoglobin Sodium 135 L 135 L Potassium 3.5 L Chloride 93.6 L 94.4 L Carbon Dioxide 17 L 21 L BUN 45 H 28 H Creatinine 3.3 H 2.5 H Glucose 106 H POC Glucose Lactic Acid Calcium 7.3 L 7.1 L Phosphorus Magnesium Direct Bilirubin AST ALT Alkaline Phosphatase Lactate Dehydrogenase Troponin T C-Reactive Protein Total Protein Albumin Prealbumin Triglycerides Cholesterol LDL Cholesterol Direct HDL Cholesterol PTH Intact Urine pH Urine WBC (Auto) Urine Creatinine Urine Total Protein Fluid Total Protein Vancomycin Trough Rheumatoid Factor Complement C4 Miscellaneous Test Crossmatch 09/28/16 09/28/16 09/28/16 03:45 07:25 11:58 WBC 13.3 H RBC 3.01 L Hgb 8.4 L Hct 25.0 L MCV MCH MCHC RDW 20.5 H Plt Count 128 L Lymph % (Auto) [place] % (Auto) Lymph # [place] # Baso # Seg Neutrophils % Seg Neuts % (Manual) Lymphocytes % (Manual) 7.0 L Monocytes % (Manual) Eosinophils % (Manual) 6.0 H Basophils % (Manual) Nucleated RBC % Seg Neutrophils # Seg Neutrophils # Man Lymphocytes # (Manual) 0.9 L Monocytes # (Manual) Eosinophils # (Manual) 0.8 H Basophils # (Manual) PT INR Fibrinogen dRVVT Confirm Interp Factor V Activity POC ABG pH POC ABG pCO2 POC ABG pO2 ABG pO2 ABG HCO3 ABG Base Excess ABG Hemoglobin Oxyhemoglobin Sodium Potassium Chloride Carbon Dioxide BUN Creatinine Glucose POC Glucose 121 H Lactic Acid 4.50 H* Calcium Phosphorus Magnesium Direct Bilirubin AST ALT Alkaline Phosphatase Lactate Dehydrogenase Troponin T C-Reactive Protein Total Protein Albumin Prealbumin Triglycerides Cholesterol LDL Cholesterol Direct HDL Cholesterol PTH Intact Urine pH Urine WBC (Auto) Urine Creatinine Urine Total Protein Fluid Total Protein Vancomycin Trough Rheumatoid Factor Complement C4 Miscellaneous Test Crossmatch 09/29/16 09/29/16 09/29/16 06:45 06:45 06:45 WBC 14.9 H RBC 2.74 L Hgb 7.6 L Hct 23.2 L MCV MCH MCHC RDW 20.5 H Plt Count 81 L Lymph % (Auto) [place] % (Auto) Lymph # [place] # Baso # Seg Neutrophils % Seg Neuts % (Manual) 81.0 H Lymphocytes % (Manual) 4.0 L Monocytes % (Manual) Eosinophils % (Manual) Basophils % (Manual) Nucleated RBC % Seg Neutrophils # Seg Neutrophils # Man 12.1 H Lymphocytes # (Manual) 0.6 L Monocytes # (Manual) Eosinophils # (Manual) Basophils # (Manual) PT INR Fibrinogen dRVVT Confirm Interp Factor V Activity POC ABG pH POC ABG pCO2 POC ABG pO2 ABG pO2 ABG HCO3 ABG Base Excess ABG Hemoglobin Oxyhemoglobin Sodium 133 L Potassium 3.4 L Chloride 92.5 L Carbon Dioxide 21 L BUN 33 H Creatinine 3.0 H Glucose POC Glucose Lactic Acid Calcium 6.6 L Phosphorus Magnesium 1.40 L Direct Bilirubin 0.9 H AST ALT Alkaline Phosphatase Lactate Dehydrogenase Troponin T C-Reactive Protein Total Protein 4.3 L Albumin 1.3 L Prealbumin Triglycerides Cholesterol LDL Cholesterol Direct HDL Cholesterol PTH Intact Urine pH Urine WBC (Auto) Urine Creatinine Urine Total Protein Fluid Total Protein Vancomycin Trough Rheumatoid Factor Complement C4 Miscellaneous Test Crossmatch 09/29/16 09/29/16 09/30/16 17:52 20:12 00:07 WBC RBC Hgb Hct MCV MCH MCHC RDW Plt Count Lymph % (Auto) [place] % (Auto) Lymph # [place] # Baso # Seg Neutrophils % Seg Neuts % (Manual) Lymphocytes % (Manual) Monocytes % (Manual) Eosinophils % (Manual) Basophils % (Manual) Nucleated RBC % Seg Neutrophils # Seg Neutrophils # Man Lymphocytes # (Manual) Monocytes # (Manual) Eosinophils # (Manual) Basophils # (Manual) PT INR Fibrinogen dRVVT Confirm Interp Factor V Activity POC ABG pH POC ABG pCO2 POC ABG pO2 ABG pO2 ABG HCO3 ABG Base Excess ABG Hemoglobin Oxyhemoglobin Sodium Potassium Chloride Carbon Dioxide BUN Creatinine Glucose POC Glucose 50 L 51 L Lactic Acid Calcium Phosphorus Magnesium Direct Bilirubin AST ALT Alkaline Phosphatase Lactate Dehydrogenase Troponin T 0.204 H* C-Reactive Protein Total Protein Albumin Prealbumin Triglycerides Cholesterol 31 L LDL Cholesterol Direct 4 L HDL Cholesterol 3 L PTH Intact Urine pH Urine WBC (Auto) Urine Creatinine Urine Total Protein Fluid Total Protein Vancomycin Trough Rheumatoid Factor Complement C4 Miscellaneous Test Crossmatch 09/30/16 09/30/16 09/30/16 01:30 05:15 06:10 WBC RBC Hgb Hct MCV MCH MCHC RDW Plt Count Lymph % (Auto) [place] % (Auto) Lymph # [place] # Baso # Seg Neutrophils % Seg Neuts % (Manual) Lymphocytes % (Manual) Monocytes % (Manual) Eosinophils % (Manual) Basophils % (Manual) Nucleated RBC % Seg Neutrophils # Seg Neutrophils # Man Lymphocytes # (Manual) Monocytes # (Manual) Eosinophils # (Manual) Basophils # (Manual) PT INR Fibrinogen dRVVT Confirm Interp Factor V Activity POC ABG pH POC ABG pCO2 POC ABG pO2 ABG pO2 ABG HCO3 ABG Base Excess ABG Hemoglobin Oxyhemoglobin Sodium 133 L Potassium 3.2 L Chloride 93.2 L Carbon Dioxide 19 L BUN 36 H Creatinine 3.2 H Glucose 104 H POC Glucose 167 H 146 H Lactic Acid Calcium 6.4 L Phosphorus Magnesium 1.60 L Direct Bilirubin AST ALT Alkaline Phosphatase Lactate Dehydrogenase Troponin T C-Reactive Protein Total Protein Albumin Prealbumin Triglycerides Cholesterol LDL Cholesterol Direct HDL Cholesterol PTH Intact Urine pH Urine WBC (Auto) Urine Creatinine Urine Total Protein Fluid Total Protein Vancomycin Trough Rheumatoid Factor Complement C4 Miscellaneous Test Crossmatch 09/30/16 09/30/16 09/30/16 11:26 13:39 18:38 WBC RBC Hgb Hct MCV MCH MCHC RDW Plt Count Lymph % (Auto) [place] % (Auto) Lymph # [place] # Baso # Seg Neutrophils % Seg Neuts % (Manual) Lymphocytes % (Manual) Monocytes % (Manual) Eosinophils % (Manual) Basophils % (Manual) Nucleated RBC % Seg Neutrophils # Seg Neutrophils # Man Lymphocytes # (Manual) Monocytes # (Manual) Eosinophils # (Manual) Basophils # (Manual) PT INR Fibrinogen dRVVT Confirm Interp Factor V Activity POC ABG pH 7.479 H POC ABG pCO2 29.8 L POC ABG pO2 117 H ABG pO2 ABG HCO3 ABG Base Excess ABG Hemoglobin Oxyhemoglobin Sodium Potassium Chloride Carbon Dioxide BUN Creatinine Glucose POC Glucose 140 H 122 H Lactic Acid Calcium Phosphorus Magnesium Direct Bilirubin AST ALT Alkaline Phosphatase Lactate Dehydrogenase Troponin T C-Reactive Protein Total Protein Albumin Prealbumin Triglycerides Cholesterol LDL Cholesterol Direct HDL Cholesterol PTH Intact Urine pH Urine WBC (Auto) Urine Creatinine Urine Total Protein Fluid Total Protein Vancomycin Trough Rheumatoid Factor Complement C4 Miscellaneous Test Crossmatch 10/01/16 10/01/16 10/01/16 06:00 06:00 12:37 WBC 12.6 H RBC 2.75 L Hgb 7.3 L Hct 23.3 L MCV MCH 27 L MCHC RDW 20.6 H Plt Count 72 L Lymph % (Auto) [place] % (Auto) Lymph # [place] # Baso # Seg Neutrophils % Seg Neuts % (Manual) 31.0 L Lymphocytes % (Manual) 8.0 L Monocytes % (Manual) Eosinophils % (Manual) Basophils % (Manual) Nucleated RBC % 3.0 H Seg Neutrophils # Seg Neutrophils # Man Lymphocytes # (Manual) 1.0 L Monocytes # (Manual) Eosinophils # (Manual) Basophils # (Manual) PT INR Fibrinogen dRVVT Confirm Interp Factor V Activity POC ABG pH POC ABG pCO2 POC ABG pO2 ABG pO2 ABG HCO3 ABG Base Excess ABG Hemoglobin Oxyhemoglobin Sodium 127 L Potassium Chloride 86.8 L Carbon Dioxide 20 L BUN 42 H Creatinine 3.5 H Glucose POC Glucose 65 L Lactic Acid Calcium 7.0 L Phosphorus Magnesium Direct Bilirubin AST ALT Alkaline Phosphatase Lactate Dehydrogenase Troponin T C-Reactive Protein Total Protein Albumin Prealbumin Triglycerides Cholesterol LDL Cholesterol Direct HDL Cholesterol PTH Intact Urine pH Urine WBC (Auto) Urine Creatinine Urine Total Protein Fluid Total Protein Vancomycin Trough Rheumatoid Factor Complement C4 Miscellaneous Test Crossmatch 10/01/16 10/01/16 10/02/16 17:39 23:32 00:59 WBC RBC Hgb Hct MCV MCH MCHC RDW Plt Count Lymph % (Auto) [place] % (Auto) Lymph # [place] # Baso # Seg Neutrophils % Seg Neuts % (Manual) Lymphocytes % (Manual) Monocytes % (Manual) Eosinophils % (Manual) Basophils % (Manual) Nucleated RBC % Seg Neutrophils # Seg Neutrophils # Man Lymphocytes # (Manual) Monocytes # (Manual) Eosinophils # (Manual) Basophils # (Manual) PT INR Fibrinogen dRVVT Confirm Interp Factor V Activity POC ABG pH POC ABG pCO2 POC ABG pO2 ABG pO2 ABG HCO3 ABG Base Excess ABG Hemoglobin Oxyhemoglobin Sodium Potassium Chloride Carbon Dioxide BUN Creatinine Glucose POC Glucose 107 H 52 L 145 H Lactic Acid Calcium Phosphorus Magnesium Direct Bilirubin AST ALT Alkaline Phosphatase Lactate Dehydrogenase Troponin T C-Reactive Protein Total Protein Albumin Prealbumin Triglycerides Cholesterol LDL Cholesterol Direct HDL Cholesterol PTH Intact Urine pH Urine WBC (Auto) Urine Creatinine Urine Total Protein Fluid Total Protein Vancomycin Trough Rheumatoid Factor Complement C4 Miscellaneous Test Crossmatch 10/02/16 10/02/16 10/02/16 10:30 10:50 10:50 WBC 14.7 H RBC 2.76 L Hgb 7.4 L Hct 23.6 L MCV MCH 27 L MCHC RDW 20.2 H Plt Count 79 L Lymph % (Auto) [place] % (Auto) Lymph # [place] # Baso # Seg Neutrophils % Seg Neuts % (Manual) 86.0 H Lymphocytes % (Manual) 6.0 L Monocytes % (Manual) Eosinophils % (Manual) Basophils % (Manual) Nucleated RBC % Seg Neutrophils # Seg Neutrophils # Man 12.6 H Lymphocytes # (Manual) 0.9 L Monocytes # (Manual) Eosinophils # (Manual) Basophils # (Manual) PT INR Fibrinogen dRVVT Confirm Interp Factor V Activity POC ABG pH 7.486 H POC ABG pCO2 30.1 L POC ABG pO2 108 H ABG pO2 ABG HCO3 ABG Base Excess ABG Hemoglobin Oxyhemoglobin Sodium 131 L Potassium 3.4 L Chloride 89.9 L Carbon Dioxide BUN 26 H Creatinine 2.6 H Glucose POC Glucose Lactic Acid Calcium 7.0 L Phosphorus Magnesium Direct Bilirubin AST ALT Alkaline Phosphatase Lactate Dehydrogenase Troponin T C-Reactive Protein Total Protein Albumin Prealbumin Triglycerides Cholesterol LDL Cholesterol Direct HDL Cholesterol PTH Intact Urine pH Urine WBC (Auto) Urine Creatinine Urine Total Protein Fluid Total Protein Vancomycin Trough Rheumatoid Factor Complement C4 Miscellaneous Test Crossmatch 10/02/16 10/03/16 10/03/16 23:45 00:45 05:10 WBC 12.9 H RBC 2.77 L Hgb 7.6 L Hct 23.7 L MCV MCH 27 L MCHC RDW 19.7 H Plt Count 89 L Lymph % (Auto) [place] % (Auto) Lymph # [place] # Baso # Seg Neutrophils % Seg Neuts % (Manual) Lymphocytes % (Manual) 8.0 L Monocytes % (Manual) Eosinophils % (Manual) Basophils % (Manual) Nucleated RBC % Seg Neutrophils # 11.9 H Seg Neutrophils # Man Lymphocytes # (Manual) 1.0 L Monocytes # (Manual) Eosinophils # (Manual) Basophils # (Manual) PT INR Fibrinogen dRVVT Confirm Interp Factor V Activity POC ABG pH POC ABG pCO2 POC ABG pO2 ABG pO2 ABG HCO3 ABG Base Excess ABG Hemoglobin Oxyhemoglobin Sodium Potassium Chloride Carbon Dioxide BUN Creatinine Glucose POC Glucose 55 L 199 H Lactic Acid Calcium Phosphorus Magnesium Direct Bilirubin AST ALT Alkaline Phosphatase Lactate Dehydrogenase Troponin T C-Reactive Protein Total Protein Albumin Prealbumin Triglycerides Cholesterol LDL Cholesterol Direct HDL Cholesterol PTH Intact Urine pH Urine WBC (Auto) Urine Creatinine Urine Total Protein Fluid Total Protein Vancomycin Trough Rheumatoid Factor Complement C4 Miscellaneous Test Crossmatch 10/03/16 10/03/16 10/03/16 05:10 12:14 13:18 WBC RBC Hgb Hct MCV MCH MCHC RDW Plt Count Lymph % (Auto) [place] % (Auto) Lymph # [place] # Baso # Seg Neutrophils % Seg Neuts % (Manual) Lymphocytes % (Manual) Monocytes % (Manual) Eosinophils % (Manual) Basophils % (Manual) Nucleated RBC % Seg Neutrophils # Seg Neutrophils # Man Lymphocytes # (Manual) Monocytes # (Manual) Eosinophils # (Manual) Basophils # (Manual) PT INR Fibrinogen dRVVT Confirm Interp Factor V Activity POC ABG pH POC ABG pCO2 POC ABG pO2 ABG pO2 ABG HCO3 ABG Base Excess ABG Hemoglobin Oxyhemoglobin Sodium 129 L Potassium 3.3 L Chloride 88.8 L Carbon Dioxide 20 L BUN 29 H Creatinine 2.8 H Glucose POC Glucose 68 L 127 H Lactic Acid Calcium 7.2 L Phosphorus Magnesium Direct Bilirubin AST ALT Alkaline Phosphatase Lactate Dehydrogenase Troponin T C-Reactive Protein Total Protein Albumin Prealbumin Triglycerides Cholesterol LDL Cholesterol Direct HDL Cholesterol PTH Intact Urine pH Urine WBC (Auto) Urine Creatinine Urine Total Protein Fluid Total Protein Vancomycin Trough Rheumatoid Factor Complement C4 Miscellaneous Test Crossmatch 10/03/16 10/03/16 10/03/16 14:42 18:21 19:09 WBC RBC Hgb Hct MCV MCH MCHC RDW Plt Count Lymph % (Auto) [place] % (Auto) Lymph # [place] # Baso # Seg Neutrophils % Seg Neuts % (Manual) Lymphocytes % (Manual) Monocytes % (Manual) Eosinophils % (Manual) Basophils % (Manual) Nucleated RBC % Seg Neutrophils # Seg Neutrophils # Man Lymphocytes # (Manual) Monocytes # (Manual) Eosinophils # (Manual) Basophils # (Manual) PT INR Fibrinogen dRVVT Confirm Interp Factor V Activity POC ABG pH 7.499 H POC ABG pCO2 28.4 L POC ABG pO2 44 L ABG pO2 ABG HCO3 ABG Base Excess ABG Hemoglobin Oxyhemoglobin Sodium Potassium Chloride Carbon Dioxide BUN Creatinine Glucose POC Glucose 64 L 205 H Lactic Acid Calcium Phosphorus Magnesium Direct Bilirubin AST ALT Alkaline Phosphatase Lactate Dehydrogenase Troponin T C-Reactive Protein Total Protein Albumin Prealbumin Triglycerides Cholesterol LDL Cholesterol Direct HDL Cholesterol PTH Intact Urine pH Urine WBC (Auto) Urine Creatinine Urine Total Protein Fluid Total Protein Vancomycin Trough Rheumatoid Factor Complement C4 Miscellaneous Test Crossmatch 10/03/16 10/04/16 10/04/16 23:33 04:18 06:30 WBC RBC 2.54 L Hgb 7.1 L Hct 21.7 L MCV MCH MCHC RDW 19.5 H Plt Count 76 L Lymph % (Auto) [place] % (Auto) Lymph # [place] # Baso # Seg Neutrophils % Seg Neuts % (Manual) 88.0 H Lymphocytes % (Manual) 6.0 L Monocytes % (Manual) Eosinophils % (Manual) Basophils % (Manual) Nucleated RBC % Seg Neutrophils # Seg Neutrophils # Man 8.8 H Lymphocytes # (Manual) 0.6 L Monocytes # (Manual) Eosinophils # (Manual) Basophils # (Manual) PT INR Fibrinogen dRVVT Confirm Interp Factor V Activity POC ABG pH 7.461 H POC ABG pCO2 33.6 L POC ABG pO2 211 H ABG pO2 ABG HCO3 ABG Base Excess ABG Hemoglobin Oxyhemoglobin Sodium Potassium Chloride Carbon Dioxide BUN Creatinine Glucose POC Glucose 136 H Lactic Acid Calcium Phosphorus Magnesium Direct Bilirubin AST ALT Alkaline Phosphatase Lactate Dehydrogenase Troponin T C-Reactive Protein Total Protein Albumin Prealbumin Triglycerides Cholesterol LDL Cholesterol Direct HDL Cholesterol PTH Intact Urine pH Urine WBC (Auto) Urine Creatinine Urine Total Protein Fluid Total Protein Vancomycin Trough Rheumatoid Factor Complement C4 Miscellaneous Test Crossmatch 10/04/16 10/04/16 10/04/16 06:30 11:45 17:54 WBC RBC Hgb Hct MCV MCH MCHC RDW Plt Count Lymph % (Auto) [place] % (Auto) Lymph # [place] # Baso # Seg Neutrophils % Seg Neuts % (Manual) Lymphocytes % (Manual) Monocytes % (Manual) Eosinophils % (Manual) Basophils % (Manual) Nucleated RBC % Seg Neutrophils # Seg Neutrophils # Man Lymphocytes # (Manual) Monocytes # (Manual) Eosinophils # (Manual) Basophils # (Manual) PT INR Fibrinogen dRVVT Confirm Interp Factor V Activity POC ABG pH POC ABG pCO2 POC ABG pO2 ABG pO2 ABG HCO3 ABG Base Excess ABG Hemoglobin Oxyhemoglobin Sodium 128 L Potassium Chloride 87.4 L Carbon Dioxide 20 L BUN 34 H Creatinine 2.9 H Glucose 127 H POC Glucose 158 H 160 H Lactic Acid Calcium 7.4 L Phosphorus Magnesium Direct Bilirubin AST ALT Alkaline Phosphatase Lactate Dehydrogenase Troponin T C-Reactive Protein Total Protein Albumin Prealbumin Triglycerides Cholesterol LDL Cholesterol Direct HDL Cholesterol PTH Intact Urine pH Urine WBC (Auto) Urine Creatinine Urine Total Protein Fluid Total Protein Vancomycin Trough Rheumatoid Factor Complement C4 Miscellaneous Test Crossmatch 10/04/16 10/05/16 10/05/16 23:25 04:30 05:00 WBC RBC 2.64 L Hgb 7.5 L Hct 22.6 L MCV MCH MCHC RDW 19.3 H Plt Count 80 L Lymph % (Auto) [place] % (Auto) Lymph # [place] # Baso # Seg Neutrophils % Seg Neuts % (Manual) Lymphocytes % (Manual) 12.0 L Monocytes % (Manual) Eosinophils % (Manual) Basophils % (Manual) Nucleated RBC % Seg Neutrophils # Seg Neutrophils # Man Lymphocytes # (Manual) Monocytes # (Manual) Eosinophils # (Manual) Basophils # (Manual) PT INR Fibrinogen dRVVT Confirm Interp Factor V Activity POC ABG pH 7.475 H POC ABG pCO2 33.3 L POC ABG pO2 140 H ABG pO2 ABG HCO3 ABG Base Excess ABG Hemoglobin Oxyhemoglobin Sodium Potassium Chloride Carbon Dioxide BUN Creatinine Glucose POC Glucose 141 H Lactic Acid Calcium Phosphorus Magnesium Direct Bilirubin AST ALT Alkaline Phosphatase Lactate Dehydrogenase Troponin T C-Reactive Protein Total Protein Albumin Prealbumin Triglycerides Cholesterol LDL Cholesterol Direct HDL Cholesterol PTH Intact Urine pH Urine WBC (Auto) Urine Creatinine Urine Total Protein Fluid Total Protein Vancomycin Trough Rheumatoid Factor Complement C4 Miscellaneous Test Crossmatch 10/05/16 10/05/16 10/05/16 05:00 05:09 12:58 WBC RBC Hgb Hct MCV MCH MCHC RDW Plt Count Lymph % (Auto) [place] % (Auto) Lymph # [place] # Baso # Seg Neutrophils % Seg Neuts % (Manual) Lymphocytes % (Manual) Monocytes % (Manual) Eosinophils % (Manual) Basophils % (Manual) Nucleated RBC % Seg Neutrophils # Seg Neutrophils # Man Lymphocytes # (Manual) Monocytes # (Manual) Eosinophils # (Manual) Basophils # (Manual) PT INR Fibrinogen dRVVT Confirm Interp Factor V Activity POC ABG pH POC ABG pCO2 POC ABG pO2 ABG pO2 ABG HCO3 ABG Base Excess ABG Hemoglobin Oxyhemoglobin Sodium 131 L Potassium Chloride 94.0 L Carbon Dioxide 20 L BUN 22 H Creatinine 2.0 H Glucose 123 H POC Glucose 166 H 179 H Lactic Acid Calcium 7.7 L Phosphorus 2.20 L D Magnesium Direct Bilirubin AST ALT Alkaline Phosphatase Lactate Dehydrogenase Troponin T C-Reactive Protein Total Protein Albumin Prealbumin Triglycerides Cholesterol LDL Cholesterol Direct HDL Cholesterol PTH Intact Urine pH Urine WBC (Auto) Urine Creatinine Urine Total Protein Fluid Total Protein Vancomycin Trough Rheumatoid Factor Complement C4 Miscellaneous Test Crossmatch 10/05/16 10/05/16 10/05/16 15:50 18:53 23:12 WBC RBC Hgb Hct MCV MCH MCHC RDW Plt Count Lymph % (Auto) [place] % (Auto) Lymph # [place] # Baso # Seg Neutrophils % Seg Neuts % (Manual) Lymphocytes % (Manual) Monocytes % (Manual) Eosinophils % (Manual) Basophils % (Manual) Nucleated RBC % Seg Neutrophils # Seg Neutrophils # Man Lymphocytes # (Manual) Monocytes # (Manual) Eosinophils # (Manual) Basophils # (Manual) PT INR Fibrinogen dRVVT Confirm Interp Factor V Activity POC ABG pH POC ABG pCO2 POC ABG pO2 ABG pO2 ABG HCO3 ABG Base Excess ABG Hemoglobin Oxyhemoglobin Sodium Potassium Chloride Carbon Dioxide BUN Creatinine Glucose POC Glucose 150 H 164 H Lactic Acid Calcium Phosphorus Magnesium Direct Bilirubin AST ALT Alkaline Phosphatase Lactate Dehydrogenase Troponin T C-Reactive Protein Total Protein Albumin Prealbumin Triglycerides Cholesterol LDL Cholesterol Direct HDL Cholesterol PTH Intact Urine pH Urine WBC (Auto) Urine Creatinine Urine Total Protein Fluid Total Protein Vancomycin Trough Rheumatoid Factor Complement C4 Miscellaneous Test Crossmatch See Detail 10/06/16 10/06/16 10/06/16 03:50 03:50 04:53 WBC RBC 3.00 L Hgb 8.6 L Hct 25.8 L MCV MCH MCHC RDW 17.9 H Plt Count 65 L Lymph % (Auto) [place] % (Auto) Lymph # [place] # Baso # Seg Neutrophils % Seg Neuts % (Manual) 30.0 L Lymphocytes % (Manual) 5.0 L Monocytes % (Manual) Eosinophils % (Manual) Basophils % (Manual) Nucleated RBC % Seg Neutrophils # Seg Neutrophils # Man Lymphocytes # (Manual) 0.4 L Monocytes # (Manual) Eosinophils # (Manual) Basophils # (Manual) PT INR Fibrinogen dRVVT Confirm Interp Factor V Activity POC ABG pH 7.310 L POC ABG pCO2 49.0 H POC ABG pO2 ABG pO2 ABG HCO3 ABG Base Excess ABG Hemoglobin Oxyhemoglobin Sodium 133 L Potassium Chloride 95.9 L Carbon Dioxide BUN 26 H Creatinine 2.0 H Glucose 116 H POC Glucose Lactic Acid Calcium 7.8 L Phosphorus Magnesium Direct Bilirubin AST ALT Alkaline Phosphatase Lactate Dehydrogenase Troponin T C-Reactive Protein Total Protein Albumin Prealbumin Triglycerides Cholesterol LDL Cholesterol Direct HDL Cholesterol PTH Intact Urine pH Urine WBC (Auto) Urine Creatinine Urine Total Protein Fluid Total Protein Vancomycin Trough Rheumatoid Factor Complement C4 Miscellaneous Test Crossmatch 10/06/16 10/06/16 10/06/16 05:23 11:52 18:34 WBC RBC Hgb Hct MCV MCH MCHC RDW Plt Count Lymph % (Auto) [place] % (Auto) Lymph # [place] # Baso # Seg Neutrophils % Seg Neuts % (Manual) Lymphocytes % (Manual) Monocytes % (Manual) Eosinophils % (Manual) Basophils % (Manual) Nucleated RBC % Seg Neutrophils # Seg Neutrophils # Man Lymphocytes # (Manual) Monocytes # (Manual) Eosinophils # (Manual) Basophils # (Manual) PT INR Fibrinogen dRVVT Confirm Interp Factor V Activity POC ABG pH POC ABG pCO2 POC ABG pO2 ABG pO2 ABG HCO3 ABG Base Excess ABG Hemoglobin Oxyhemoglobin Sodium Potassium Chloride Carbon Dioxide BUN Creatinine Glucose POC Glucose 126 H 116 H 129 H Lactic Acid Calcium Phosphorus Magnesium Direct Bilirubin AST ALT Alkaline Phosphatase Lactate Dehydrogenase Troponin T C-Reactive Protein Total Protein Albumin Prealbumin Triglycerides Cholesterol LDL Cholesterol Direct HDL Cholesterol PTH Intact Urine pH Urine WBC (Auto) Urine Creatinine Urine Total Protein Fluid Total Protein Vancomycin Trough Rheumatoid Factor Complement C4 Miscellaneous Test Crossmatch 10/07/16 10/07/16 10/07/16 03:45 05:00 10:00 WBC 17.0 H RBC 2.68 L Hgb 7.3 L Hct 25.3 L MCV MCH 27 L MCHC 29 L RDW 19.6 H Plt Count 74 L Lymph % (Auto) [place] % (Auto) Lymph # [place] # Baso # Seg Neutrophils % Seg Neuts % (Manual) Lymphocytes % (Manual) 12.0 L Monocytes % (Manual) Eosinophils % (Manual) Basophils % (Manual) Nucleated RBC % 4.0 H Seg Neutrophils # Seg Neutrophils # Man 10.7 H Lymphocytes # (Manual) Monocytes # (Manual) Eosinophils # (Manual) Basophils # (Manual) PT INR Fibrinogen dRVVT Confirm Interp Factor V Activity POC ABG pH POC ABG pCO2 POC ABG pO2 ABG pO2 ABG HCO3 ABG Base Excess ABG Hemoglobin Oxyhemoglobin Sodium 130 L Potassium 3.2 L Chloride 93.9 L Carbon Dioxide 20 L BUN 44 H Creatinine 2.7 H Glucose 129 H POC Glucose Lactic Acid Calcium 7.4 L Phosphorus Magnesium Direct Bilirubin AST ALT 6 L Alkaline Phosphatase 195 H Lactate Dehydrogenase Troponin T C-Reactive Protein Total Protein 4.9 L Albumin 1.0 L Prealbumin Triglycerides Cholesterol LDL Cholesterol Direct HDL Cholesterol PTH Intact Urine pH Urine WBC (Auto) Urine Creatinine Urine Total Protein Fluid Total Protein Vancomycin Trough Rheumatoid Factor Complement C4 Miscellaneous Test Flexitest 1 H Crossmatch 10/07/16 10/07/16 10/07/16 10:00 11:24 18:10 WBC RBC Hgb Hct MCV MCH MCHC RDW Plt Count Lymph % (Auto) [place] % (Auto) Lymph # [place] # Baso # Seg Neutrophils % Seg Neuts % (Manual) Lymphocytes % (Manual) Monocytes % (Manual) Eosinophils % (Manual) Basophils % (Manual) Nucleated RBC % Seg Neutrophils # Seg Neutrophils # Man Lymphocytes # (Manual) Monocytes # (Manual) Eosinophils # (Manual) Basophils # (Manual) PT INR Fibrinogen dRVVT Confirm Interp Factor V Activity POC ABG pH POC ABG pCO2 POC ABG pO2 ABG pO2 ABG HCO3 ABG Base Excess ABG Hemoglobin Oxyhemoglobin Sodium Potassium Chloride Carbon Dioxide BUN Creatinine Glucose POC Glucose 116 H 130 H Lactic Acid Calcium Phosphorus Magnesium Direct Bilirubin AST ALT Alkaline Phosphatase Lactate Dehydrogenase Troponin T C-Reactive Protein 19.40 H Total Protein Albumin Prealbumin Triglycerides Cholesterol LDL Cholesterol Direct HDL Cholesterol PTH Intact Urine pH Urine WBC (Auto) Urine Creatinine Urine Total Protein Fluid Total Protein Vancomycin Trough Rheumatoid Factor Complement C4 Miscellaneous Test Crossmatch 10/07/16 10/08/16 10/08/16 18:30 00:00 04:00 WBC RBC Hgb Hct MCV MCH MCHC RDW Plt Count Lymph % (Auto) [place] % (Auto) Lymph # [place] # Baso # Seg Neutrophils % Seg Neuts % (Manual) Lymphocytes % (Manual) Monocytes % (Manual) Eosinophils % (Manual) Basophils % (Manual) Nucleated RBC % Seg Neutrophils # Seg Neutrophils # Man Lymphocytes # (Manual) Monocytes # (Manual) Eosinophils # (Manual) Basophils # (Manual) PT INR Fibrinogen dRVVT Confirm Interp Factor V Activity POC ABG pH POC ABG pCO2 POC ABG pO2 ABG pO2 ABG HCO3 ABG Base Excess ABG Hemoglobin Oxyhemoglobin Sodium 132 L Potassium 3.3 L Chloride 93.6 L Carbon Dioxide 17 L BUN 59 H Creatinine 2.7 H Glucose 121 H POC Glucose 122 H Lactic Acid Calcium 7.6 L Phosphorus Magnesium Direct Bilirubin AST ALT Alkaline Phosphatase Lactate Dehydrogenase Troponin T C-Reactive Protein Total Protein Albumin Prealbumin Triglycerides Cholesterol LDL Cholesterol Direct HDL Cholesterol PTH Intact Urine pH Urine WBC (Auto) > 182.0 H Urine Creatinine Urine Total Protein Fluid Total Protein Vancomycin Trough Rheumatoid Factor Complement C4 Miscellaneous Test Crossmatch 10/08/16 10/08/16 10/08/16 04:30 05:30 11:51 WBC RBC 5.15 H Hgb 14.4 H D Hct 44.5 H D MCV MCH MCHC RDW 19.5 H Plt Count 56 L Lymph % (Auto) [place] % (Auto) Lymph # [place] # Baso # Seg Neutrophils % Seg Neuts % (Manual) 24.0 L Lymphocytes % (Manual) 8.0 L Monocytes % (Manual) Eosinophils % (Manual) Basophils % (Manual) Nucleated RBC % 9.0 H Seg Neutrophils # Seg Neutrophils # Man Lymphocytes # (Manual) 0.7 L Monocytes # (Manual) Eosinophils # (Manual) Basophils # (Manual) PT INR Fibrinogen dRVVT Confirm Interp Factor V Activity POC ABG pH POC ABG pCO2 POC ABG pO2 ABG pO2 ABG HCO3 ABG Base Excess ABG Hemoglobin Oxyhemoglobin Sodium Potassium Chloride Carbon Dioxide BUN Creatinine Glucose POC Glucose 125 H 150 H Lactic Acid Calcium Phosphorus Magnesium Direct Bilirubin AST ALT Alkaline Phosphatase Lactate Dehydrogenase Troponin T C-Reactive Protein Total Protein Albumin Prealbumin Triglycerides Cholesterol LDL Cholesterol Direct HDL Cholesterol PTH Intact Urine pH Urine WBC (Auto) Urine Creatinine Urine Total Protein Fluid Total Protein Vancomycin Trough Rheumatoid Factor Complement C4 Miscellaneous Test Crossmatch 10/08/16 10/08/16 10/08/16 12:49 17:07 19:30 WBC RBC Hgb 7.1 L D Hct 22.4 L D MCV MCH MCHC RDW Plt Count Lymph % (Auto) [place] % (Auto) Lymph # [place] # Baso # Seg Neutrophils % Seg Neuts % (Manual) Lymphocytes % (Manual) Monocytes % (Manual) Eosinophils % (Manual) Basophils % (Manual) Nucleated RBC % Seg Neutrophils # Seg Neutrophils # Man Lymphocytes # (Manual) Monocytes # (Manual) Eosinophils # (Manual) Basophils # (Manual) PT INR Fibrinogen dRVVT Confirm Interp Factor V Activity POC ABG pH POC ABG pCO2 28.2 L POC ABG pO2 111 H ABG pO2 ABG HCO3 ABG Base Excess ABG Hemoglobin Oxyhemoglobin Sodium Potassium Chloride Carbon Dioxide BUN Creatinine Glucose POC Glucose 145 H Lactic Acid Calcium Phosphorus Magnesium Direct Bilirubin AST ALT Alkaline Phosphatase Lactate Dehydrogenase Troponin T C-Reactive Protein Total Protein Albumin Prealbumin Triglycerides Cholesterol LDL Cholesterol Direct HDL Cholesterol PTH Intact Urine pH Urine WBC (Auto) Urine Creatinine Urine Total Protein Fluid Total Protein Vancomycin Trough Rheumatoid Factor Complement C4 Miscellaneous Test Crossmatch 10/08/16 10/09/16 10/09/16 19:30 03:45 03:45 WBC 12.6 H RBC 2.36 L Hgb 6.7 L Hct 21.1 L MCV MCH MCHC RDW 19.5 H Plt Count 75 L Lymph % (Auto) [place] % (Auto) Lymph # [place] # Baso # Seg Neutrophils % Seg Neuts % (Manual) Lymphocytes % (Manual) Monocytes % (Manual) 10.0 H Eosinophils % (Manual) Basophils % (Manual) Nucleated RBC % 3.0 H Seg Neutrophils # Seg Neutrophils # Man Lymphocytes # (Manual) Monocytes # (Manual) 1.3 H Eosinophils # (Manual) Basophils # (Manual) PT 18.0 H INR 1.41 H Fibrinogen dRVVT Confirm Interp Factor V Activity POC ABG pH POC ABG pCO2 POC ABG pO2 ABG pO2 ABG HCO3 ABG Base Excess ABG Hemoglobin Oxyhemoglobin Sodium 135 L Potassium Chloride Carbon Dioxide 17 L BUN 81 H Creatinine 3.2 H Glucose 109 H POC Glucose Lactic Acid Calcium 7.4 L Phosphorus 4.60 H D Magnesium Direct Bilirubin AST ALT Alkaline Phosphatase Lactate Dehydrogenase Troponin T C-Reactive Protein Total Protein Albumin Prealbumin Triglycerides Cholesterol LDL Cholesterol Direct HDL Cholesterol PTH Intact Urine pH Urine WBC (Auto) Urine Creatinine Urine Total Protein Fluid Total Protein Vancomycin Trough Rheumatoid Factor Complement C4 Miscellaneous Test Crossmatch 10/09/16 10/09/16 10/09/16 03:45 05:14 07:20 WBC RBC Hgb Hct MCV MCH MCHC RDW Plt Count Lymph % (Auto) [place] % (Auto) Lymph # [place] # Baso # Seg Neutrophils % Seg Neuts % (Manual) Lymphocytes % (Manual) Monocytes % (Manual) Eosinophils % (Manual) Basophils % (Manual) Nucleated RBC % Seg Neutrophils # Seg Neutrophils # Man Lymphocytes # (Manual) Monocytes # (Manual) Eosinophils # (Manual) Basophils # (Manual) PT 19.0 H INR 1.51 H Fibrinogen dRVVT Confirm Interp Factor V Activity POC ABG pH POC ABG pCO2 POC ABG pO2 ABG pO2 ABG HCO3 ABG Base Excess ABG Hemoglobin Oxyhemoglobin Sodium Potassium Chloride Carbon Dioxide BUN Creatinine Glucose POC Glucose 151 H Lactic Acid Calcium Phosphorus Magnesium Direct Bilirubin AST ALT Alkaline Phosphatase Lactate Dehydrogenase Troponin T C-Reactive Protein Total Protein Albumin Prealbumin Triglycerides Cholesterol LDL Cholesterol Direct HDL Cholesterol PTH Intact Urine pH Urine WBC (Auto) Urine Creatinine Urine Total Protein Fluid Total Protein Vancomycin Trough Rheumatoid Factor Complement C4 Miscellaneous Test Crossmatch See Detail 10/09/16 10/09/16 10/09/16 11:46 16:20 16:43 WBC RBC Hgb 7.2 L Hct 22.2 L MCV MCH MCHC RDW Plt Count Lymph % (Auto) [place] % (Auto) Lymph # [place] # Baso # Seg Neutrophils % Seg Neuts % (Manual) Lymphocytes % (Manual) Monocytes % (Manual) Eosinophils % (Manual) Basophils % (Manual) Nucleated RBC % Seg Neutrophils # Seg Neutrophils # Man Lymphocytes # (Manual) Monocytes # (Manual) Eosinophils # (Manual) Basophils # (Manual) PT INR Fibrinogen dRVVT Confirm Interp Factor V Activity POC ABG pH POC ABG pCO2 POC ABG pO2 ABG pO2 ABG HCO3 ABG Base Excess ABG Hemoglobin Oxyhemoglobin Sodium Potassium Chloride Carbon Dioxide BUN Creatinine Glucose POC Glucose 133 H 141 H Lactic Acid Calcium Phosphorus Magnesium Direct Bilirubin AST ALT Alkaline Phosphatase Lactate Dehydrogenase Troponin T C-Reactive Protein Total Protein Albumin Prealbumin Triglycerides Cholesterol LDL Cholesterol Direct HDL Cholesterol PTH Intact Urine pH Urine WBC (Auto) Urine Creatinine Urine Total Protein Fluid Total Protein Vancomycin Trough Rheumatoid Factor Complement C4 Miscellaneous Test Crossmatch 10/10/16 10/10/16 10/10/16 05:00 05:00 11:19 WBC 18.5 H RBC 2.19 L Hgb 6.4 L Hct 19.6 L* MCV MCH MCHC RDW 19.3 H Plt Count 93 L Lymph % (Auto) [place] % (Auto) Lymph # [place] # Baso # Seg Neutrophils % Seg Neuts % (Manual) Lymphocytes % (Manual) 10.0 L Monocytes % (Manual) Eosinophils % (Manual) Basophils % (Manual) Nucleated RBC % 4.0 H Seg Neutrophils # Seg Neutrophils # Man 11.3 H Lymphocytes # (Manual) Monocytes # (Manual) Eosinophils # (Manual) Basophils # (Manual) PT INR Fibrinogen dRVVT Confirm Interp Factor V Activity POC ABG pH POC ABG pCO2 POC ABG pO2 ABG pO2 ABG HCO3 ABG Base Excess ABG Hemoglobin Oxyhemoglobin Sodium Potassium 5.7 H D Chloride Carbon Dioxide 16 L BUN 94 H Creatinine 3.1 H Glucose 131 H POC Glucose 153 H Lactic Acid Calcium 8.2 L Phosphorus 5.10 H Magnesium 2.40 H Direct Bilirubin 0.3 H AST ALT < 5 L Alkaline Phosphatase 319 H Lactate Dehydrogenase Troponin T C-Reactive Protein Total Protein 5.1 L Albumin 1.0 L Prealbumin Triglycerides Cholesterol LDL Cholesterol Direct HDL Cholesterol PTH Intact Urine pH Urine WBC (Auto) Urine Creatinine Urine Total Protein Fluid Total Protein Vancomycin Trough Rheumatoid Factor Complement C4 Miscellaneous Test Crossmatch 10/10/16 10/10/16 10/11/16 17:50 23:30 04:15 WBC RBC Hgb Hct MCV MCH MCHC RDW Plt Count Lymph % (Auto) [place] % (Auto) Lymph # [place] # Baso # Seg Neutrophils % Seg Neuts % (Manual) Lymphocytes % (Manual) Monocytes % (Manual) Eosinophils % (Manual) Basophils % (Manual) Nucleated RBC % Seg Neutrophils # Seg Neutrophils # Man Lymphocytes # (Manual) Monocytes # (Manual) Eosinophils # (Manual) Basophils # (Manual) PT INR Fibrinogen dRVVT Confirm Interp Factor V Activity POC ABG pH POC ABG pCO2 POC ABG pO2 ABG pO2 ABG HCO3 ABG Base Excess ABG Hemoglobin Oxyhemoglobin Sodium Potassium Chloride 96.4 L Carbon Dioxide 21 L BUN 57 H Creatinine 2.1 H Glucose 151 H POC Glucose 146 H 141 H Lactic Acid Calcium 8.3 L Phosphorus Magnesium Direct Bilirubin AST ALT Alkaline Phosphatase Lactate Dehydrogenase Troponin T C-Reactive Protein Total Protein Albumin Prealbumin Triglycerides Cholesterol LDL Cholesterol Direct HDL Cholesterol PTH Intact Urine pH Urine WBC (Auto) Urine Creatinine Urine Total Protein Fluid Total Protein Vancomycin Trough Rheumatoid Factor Complement C4 Miscellaneous Test Crossmatch 10/11/16 10/11/16 10/11/16 04:15 04:15 05:30 WBC 28.3 H RBC 3.12 L Hgb 9.3 L Hct 28.7 L D MCV MCH MCHC RDW 17.7 H Plt Count 128 L Lymph % (Auto) [place] % (Auto) Lymph # [place] # Baso # Seg Neutrophils % Seg Neuts % (Manual) Lymphocytes % (Manual) Monocytes % (Manual) Eosinophils % (Manual) Basophils % (Manual) Nucleated RBC % Seg Neutrophils # Seg Neutrophils # Man Lymphocytes # (Manual) Monocytes # (Manual) Eosinophils # (Manual) Basophils # (Manual) PT INR Fibrinogen dRVVT Confirm Interp Factor V Activity POC ABG pH POC ABG pCO2 POC ABG pO2 ABG pO2 ABG HCO3 ABG Base Excess ABG Hemoglobin Oxyhemoglobin Sodium Potassium Chloride Carbon Dioxide BUN Creatinine Glucose POC Glucose 167 H Lactic Acid Calcium Phosphorus Magnesium Direct Bilirubin AST ALT Alkaline Phosphatase Lactate Dehydrogenase Troponin T C-Reactive Protein 15.80 H Total Protein Albumin Prealbumin Triglycerides Cholesterol LDL Cholesterol Direct HDL Cholesterol PTH Intact Urine pH Urine WBC (Auto) Urine Creatinine Urine Total Protein Fluid Total Protein Vancomycin Trough Rheumatoid Factor Complement C4 Miscellaneous Test Crossmatch 10/11/16 10/11/16 10/11/16 11:40 15:49 23:57 WBC RBC Hgb Hct MCV MCH MCHC RDW Plt Count Lymph % (Auto) [place] % (Auto) Lymph # [place] # Baso # Seg Neutrophils % Seg Neuts % (Manual) Lymphocytes % (Manual) Monocytes % (Manual) Eosinophils % (Manual) Basophils % (Manual) Nucleated RBC % Seg Neutrophils # Seg Neutrophils # Man Lymphocytes # (Manual) Monocytes # (Manual) Eosinophils # (Manual) Basophils # (Manual) PT INR Fibrinogen dRVVT Confirm Interp Factor V Activity POC ABG pH POC ABG pCO2 POC ABG pO2 ABG pO2 ABG HCO3 ABG Base Excess ABG Hemoglobin Oxyhemoglobin Sodium Potassium Chloride Carbon Dioxide BUN Creatinine Glucose POC Glucose 139 H 168 H 161 H Lactic Acid Calcium Phosphorus Magnesium Direct Bilirubin AST ALT Alkaline Phosphatase Lactate Dehydrogenase Troponin T C-Reactive Protein Total Protein Albumin Prealbumin Triglycerides Cholesterol LDL Cholesterol Direct HDL Cholesterol PTH Intact Urine pH Urine WBC (Auto) Urine Creatinine Urine Total Protein Fluid Total Protein Vancomycin Trough Rheumatoid Factor Complement C4 Miscellaneous Test Crossmatch 10/12/16 10/12/16 10/12/16 04:40 04:40 05:44 WBC 22.5 H RBC 2.88 L Hgb 8.8 L Hct 26.8 L MCV MCH MCHC RDW 17.8 H Plt Count Lymph % (Auto) [place] % (Auto) Lymph # [place] # Baso # Seg Neutrophils % Seg Neuts % (Manual) Lymphocytes % (Manual) Monocytes % (Manual) Eosinophils % (Manual) Basophils % (Manual) Nucleated RBC % Seg Neutrophils # Seg Neutrophils # Man Lymphocytes # (Manual) Monocytes # (Manual) Eosinophils # (Manual) Basophils # (Manual) PT INR Fibrinogen dRVVT Confirm Interp Factor V Activity POC ABG pH POC ABG pCO2 POC ABG pO2 ABG pO2 ABG HCO3 ABG Base Excess ABG Hemoglobin Oxyhemoglobin Sodium 134 L Potassium Chloride 93.0 L Carbon Dioxide BUN 74 H Creatinine 2.5 H Glucose 137 H POC Glucose 158 H Lactic Acid Calcium 8.2 L Phosphorus Magnesium Direct Bilirubin AST ALT Alkaline Phosphatase Lactate Dehydrogenase Troponin T C-Reactive Protein Total Protein Albumin Prealbumin Triglycerides Cholesterol LDL Cholesterol Direct HDL Cholesterol PTH Intact Urine pH Urine WBC (Auto) Urine Creatinine Urine Total Protein Fluid Total Protein Vancomycin Trough Rheumatoid Factor Complement C4 Miscellaneous Test Crossmatch 10/12/16 10/12/16 10/12/16 12:27 18:18 23:46 WBC RBC Hgb Hct MCV MCH MCHC RDW Plt Count Lymph % (Auto) [place] % (Auto) Lymph # [place] # Baso # Seg Neutrophils % Seg Neuts % (Manual) Lymphocytes % (Manual) Monocytes % (Manual) Eosinophils % (Manual) Basophils % (Manual) Nucleated RBC % Seg Neutrophils # Seg Neutrophils # Man Lymphocytes # (Manual) Monocytes # (Manual) Eosinophils # (Manual) Basophils # (Manual) PT INR Fibrinogen dRVVT Confirm Interp Factor V Activity POC ABG pH POC ABG pCO2 POC ABG pO2 ABG pO2 ABG HCO3 ABG Base Excess ABG Hemoglobin Oxyhemoglobin Sodium Potassium Chloride Carbon Dioxide BUN Creatinine Glucose POC Glucose 153 H 140 H 150 H Lactic Acid Calcium Phosphorus Magnesium Direct Bilirubin AST ALT Alkaline Phosphatase Lactate Dehydrogenase Troponin T C-Reactive Protein Total Protein Albumin Prealbumin Triglycerides Cholesterol LDL Cholesterol Direct HDL Cholesterol PTH Intact Urine pH Urine WBC (Auto) Urine Creatinine Urine Total Protein Fluid Total Protein Vancomycin Trough Rheumatoid Factor Complement C4 Miscellaneous Test Crossmatch 10/13/16 10/13/16 10/13/16 06:22 09:20 12:29 WBC RBC Hgb Hct MCV MCH MCHC RDW Plt Count Lymph % (Auto) [place] % (Auto) Lymph # [place] # Baso # Seg Neutrophils % Seg Neuts % (Manual) Lymphocytes % (Manual) Monocytes % (Manual) Eosinophils % (Manual) Basophils % (Manual) Nucleated RBC % Seg Neutrophils # Seg Neutrophils # Man Lymphocytes # (Manual) Monocytes # (Manual) Eosinophils # (Manual) Basophils # (Manual) PT INR Fibrinogen dRVVT Confirm Interp Factor V Activity POC ABG pH POC ABG pCO2 POC ABG pO2 ABG pO2 ABG HCO3 ABG Base Excess ABG Hemoglobin Oxyhemoglobin Sodium Potassium Chloride Carbon Dioxide BUN Creatinine Glucose POC Glucose 165 H 193 H Lactic Acid Calcium Phosphorus Magnesium Direct Bilirubin AST ALT Alkaline Phosphatase Lactate Dehydrogenase Troponin T C-Reactive Protein Total Protein Albumin Prealbumin Triglycerides Cholesterol LDL Cholesterol Direct HDL Cholesterol PTH Intact Urine pH Urine WBC (Auto) Urine Creatinine Urine Total Protein Fluid Total Protein Vancomycin Trough Rheumatoid Factor Complement C4 Miscellaneous Test Flexitest 1 H Crossmatch 08/24/17 08/24/17 08/24/17 18:09 Unknown Unknown WBC 23.4 H RBC 2.83 L Hgb 8.7 L Hct 26.1 L MCV MCH MCHC RDW 18.1 H Plt Count Lymph % (Auto) [place] % (Auto) Lymph # [place] # Baso # Seg Neutrophils % Seg Neuts % (Manual) Lymphocytes % (Manual) Monocytes % (Manual) Eosinophils % (Manual) Basophils % (Manual) Nucleated RBC % Seg Neutrophils # Seg Neutrophils # Man Lymphocytes # (Manual) Monocytes # (Manual) Eosinophils # (Manual) Basophils # (Manual) PT INR Fibrinogen dRVVT Confirm Interp Factor V Activity POC ABG pH POC ABG pCO2 POC ABG pO2 ABG pO2 ABG HCO3 ABG Base Excess ABG Hemoglobin Oxyhemoglobin Sodium Potassium Chloride 95.8 L Carbon Dioxide BUN 82 H Creatinine 2.6 H Glucose 152 H POC Glucose 166 H Lactic Acid Calcium Phosphorus Magnesium Direct Bilirubin AST ALT Alkaline Phosphatase Lactate Dehydrogenase Troponin T C-Reactive Protein Total Protein Albumin Prealbumin Triglycerides Cholesterol LDL Cholesterol Direct HDL Cholesterol PTH Intact Urine pH Urine WBC (Auto) Urine Creatinine Urine Total Protein Fluid Total Protein Vancomycin Trough Rheumatoid Factor Complement C4 Miscellaneous Test Crossmatch 10/14/16 10/14/16 10/14/16 05:38 06:35 08:10 WBC 20.7 H RBC 2.81 L Hgb 8.4 L Hct 27.2 L MCV MCH MCHC RDW 19.4 H Plt Count Lymph % (Auto) [place] % (Auto) Lymph # [place] # Baso # Seg Neutrophils % Seg Neuts % (Manual) Lymphocytes % (Manual) Monocytes % (Manual) Eosinophils % (Manual) Basophils % (Manual) Nucleated RBC % Seg Neutrophils # Seg Neutrophils # Man Lymphocytes # (Manual) Monocytes # (Manual) Eosinophils # (Manual) Basophils # (Manual) PT INR Fibrinogen dRVVT Confirm Interp Factor V Activity POC ABG pH POC ABG pCO2 POC ABG pO2 ABG pO2 ABG HCO3 ABG Base Excess ABG Hemoglobin Oxyhemoglobin Sodium Potassium Chloride Carbon Dioxide BUN 58 H Creatinine 1.9 H Glucose 169 H POC Glucose 195 H Lactic Acid Calcium Phosphorus Magnesium Direct Bilirubin AST ALT Alkaline Phosphatase Lactate Dehydrogenase Troponin T C-Reactive Protein Total Protein Albumin Prealbumin Triglycerides Cholesterol LDL Cholesterol Direct HDL Cholesterol PTH Intact Urine pH Urine WBC (Auto) Urine Creatinine Urine Total Protein Fluid Total Protein Vancomycin Trough Rheumatoid Factor Complement C4 Miscellaneous Test Crossmatch 10/14/16 10/14/16 10/14/16 11:44 17:13 23:28 WBC RBC Hgb Hct MCV MCH MCHC RDW Plt Count Lymph % (Auto) [place] % (Auto) Lymph # [place] # Baso # Seg Neutrophils % Seg Neuts % (Manual) Lymphocytes % (Manual) Monocytes % (Manual) Eosinophils % (Manual) Basophils % (Manual) Nucleated RBC % Seg Neutrophils # Seg Neutrophils # Man Lymphocytes # (Manual) Monocytes # (Manual) Eosinophils # (Manual) Basophils # (Manual) PT INR Fibrinogen dRVVT Confirm Interp Factor V Activity POC ABG pH POC ABG pCO2 POC ABG pO2 ABG pO2 ABG HCO3 ABG Base Excess ABG Hemoglobin Oxyhemoglobin Sodium Potassium Chloride Carbon Dioxide BUN Creatinine Glucose POC Glucose 174 H 121 H 151 H Lactic Acid Calcium Phosphorus Magnesium Direct Bilirubin AST ALT Alkaline Phosphatase Lactate Dehydrogenase Troponin T C-Reactive Protein Total Protein Albumin Prealbumin Triglycerides Cholesterol LDL Cholesterol Direct HDL Cholesterol PTH Intact Urine pH Urine WBC (Auto) Urine Creatinine Urine Total Protein Fluid Total Protein Vancomycin Trough Rheumatoid Factor Complement C4 Miscellaneous Test Crossmatch 10/15/16 10/15/16 10/15/16 05:06 12:26 17:48 WBC RBC Hgb Hct MCV MCH MCHC RDW Plt Count Lymph % (Auto) [place] % (Auto) Lymph # [place] # Baso # Seg Neutrophils % Seg Neuts % (Manual) Lymphocytes % (Manual) Monocytes % (Manual) Eosinophils % (Manual) Basophils % (Manual) Nucleated RBC % Seg Neutrophils # Seg Neutrophils # Man Lymphocytes # (Manual) Monocytes # (Manual) Eosinophils # (Manual) Basophils # (Manual) PT INR Fibrinogen dRVVT Confirm Interp Factor V Activity POC ABG pH POC ABG pCO2 POC ABG pO2 ABG pO2 ABG HCO3 ABG Base Excess ABG Hemoglobin Oxyhemoglobin Sodium Potassium Chloride Carbon Dioxide BUN Creatinine Glucose POC Glucose 151 H 149 H 153 H Lactic Acid Calcium Phosphorus Magnesium Direct Bilirubin AST ALT Alkaline Phosphatase Lactate Dehydrogenase Troponin T C-Reactive Protein Total Protein Albumin Prealbumin Triglycerides Cholesterol LDL Cholesterol Direct HDL Cholesterol PTH Intact Urine pH Urine WBC (Auto) Urine Creatinine Urine Total Protein Fluid Total Protein Vancomycin Trough Rheumatoid Factor Complement C4 Miscellaneous Test Crossmatch 10/15/16 10/15/16 10/16/16 Unknown Unknown 00:02 WBC 23.4 H RBC 2.78 L Hgb 8.5 L Hct 25.7 L MCV MCH MCHC RDW 18.7 H Plt Count Lymph % (Auto) [place] % (Auto) Lymph # [place] # Baso # Seg Neutrophils % Seg Neuts % (Manual) Lymphocytes % (Manual) Monocytes % (Manual) Eosinophils % (Manual) Basophils % (Manual) Nucleated RBC % Seg Neutrophils # Seg Neutrophils # Man Lymphocytes # (Manual) Monocytes # (Manual) Eosinophils # (Manual) Basophils # (Manual) PT INR Fibrinogen dRVVT Confirm Interp Factor V Activity POC ABG pH POC ABG pCO2 POC ABG pO2 ABG pO2 ABG HCO3 ABG Base Excess ABG Hemoglobin Oxyhemoglobin Sodium Potassium Chloride Carbon Dioxide BUN 73 H Creatinine 2.3 H Glucose 120 H POC Glucose 137 H Lactic Acid Calcium Phosphorus Magnesium Direct Bilirubin AST ALT Alkaline Phosphatase Lactate Dehydrogenase Troponin T C-Reactive Protein Total Protein Albumin Prealbumin Triglycerides Cholesterol LDL Cholesterol Direct HDL Cholesterol PTH Intact Urine pH Urine WBC (Auto) Urine Creatinine Urine Total Protein Fluid Total Protein Vancomycin Trough Rheumatoid Factor Complement C4 Miscellaneous Test Crossmatch 10/16/16 10/16/16 10/16/16 05:44 06:25 06:25 WBC 22.5 H RBC 2.76 L Hgb 8.3 L Hct 25.2 L MCV MCH MCHC RDW 18.3 H Plt Count Lymph % (Auto) [place] % (Auto) Lymph # [place] # Baso # Seg Neutrophils % Seg Neuts % (Manual) Lymphocytes % (Manual) Monocytes % (Manual) Eosinophils % (Manual) Basophils % (Manual) Nucleated RBC % Seg Neutrophils # Seg Neutrophils # Man Lymphocytes # (Manual) Monocytes # (Manual) Eosinophils # (Manual) Basophils # (Manual) PT INR Fibrinogen dRVVT Confirm Interp Factor V Activity POC ABG pH POC ABG pCO2 POC ABG pO2 ABG pO2 ABG HCO3 ABG Base Excess ABG Hemoglobin Oxyhemoglobin Sodium Potassium Chloride Carbon Dioxide BUN 92 H Creatinine 3.0 H Glucose 138 H POC Glucose 110 H Lactic Acid Calcium Phosphorus Magnesium Direct Bilirubin AST ALT Alkaline Phosphatase Lactate Dehydrogenase Troponin T C-Reactive Protein Total Protein Albumin Prealbumin Triglycerides Cholesterol LDL Cholesterol Direct HDL Cholesterol PTH Intact Urine pH Urine WBC (Auto) Urine Creatinine Urine Total Protein Fluid Total Protein Vancomycin Trough Rheumatoid Factor Complement C4 Miscellaneous Test Crossmatch 10/16/16 10/16/16 10/16/16 11:27 11:48 17:36 WBC RBC Hgb Hct MCV MCH MCHC RDW Plt Count Lymph % (Auto) [place] % (Auto) Lymph # [place] # Baso # Seg Neutrophils % Seg Neuts % (Manual) Lymphocytes % (Manual) Monocytes % (Manual) Eosinophils % (Manual) Basophils % (Manual) Nucleated RBC % Seg Neutrophils # Seg Neutrophils # Man Lymphocytes # (Manual) Monocytes # (Manual) Eosinophils # (Manual) Basophils # (Manual) PT INR Fibrinogen dRVVT Confirm Interp Factor V Activity POC ABG pH 7.582 H POC ABG pCO2 27.4 L POC ABG pO2 110 H ABG pO2 ABG HCO3 ABG Base Excess ABG Hemoglobin Oxyhemoglobin Sodium Potassium Chloride Carbon Dioxide BUN Creatinine Glucose POC Glucose 121 H 133 H Lactic Acid Calcium Phosphorus Magnesium Direct Bilirubin AST ALT Alkaline Phosphatase Lactate Dehydrogenase Troponin T C-Reactive Protein Total Protein Albumin Prealbumin Triglycerides Cholesterol LDL Cholesterol Direct HDL Cholesterol PTH Intact Urine pH Urine WBC (Auto) Urine Creatinine Urine Total Protein Fluid Total Protein Vancomycin Trough Rheumatoid Factor Complement C4 Miscellaneous Test Crossmatch 10/16/16 10/17/16 10/17/16 20:48 04:24 04:24 WBC 21.4 H RBC 2.72 L Hgb 8.0 L Hct 25.2 L MCV MCH MCHC RDW 18.0 H Plt Count Lymph % (Auto) [place] % (Auto) Lymph # [place] # Baso # Seg Neutrophils % Seg Neuts % (Manual) Lymphocytes % (Manual) Monocytes % (Manual) Eosinophils % (Manual) Basophils % (Manual) Nucleated RBC % Seg Neutrophils # Seg Neutrophils # Man Lymphocytes # (Manual) Monocytes # (Manual) Eosinophils # (Manual) Basophils # (Manual) PT INR Fibrinogen dRVVT Confirm Interp Factor V Activity POC ABG pH 7.561 H POC ABG pCO2 24.4 L POC ABG pO2 77 L ABG pO2 ABG HCO3 ABG Base Excess ABG Hemoglobin Oxyhemoglobin Sodium 148 H Potassium Chloride Carbon Dioxide BUN 104 H Creatinine 3.0 H Glucose 149 H POC Glucose Lactic Acid Calcium Phosphorus Magnesium Direct Bilirubin AST ALT Alkaline Phosphatase 138 H Lactate Dehydrogenase Troponin T C-Reactive Protein Total Protein 6.2 L Albumin 1.5 L Prealbumin Triglycerides Cholesterol LDL Cholesterol Direct HDL Cholesterol PTH Intact Urine pH Urine WBC (Auto) Urine Creatinine Urine Total Protein Fluid Total Protein Vancomycin Trough Rheumatoid Factor Complement C4 Miscellaneous Test Crossmatch 10/17/16 10/17/16 10/17/16 06:02 12:17 17:14 WBC RBC Hgb Hct MCV MCH MCHC RDW Plt Count Lymph % (Auto) [place] % (Auto) Lymph # [place] # Baso # Seg Neutrophils % Seg Neuts % (Manual) Lymphocytes % (Manual) Monocytes % (Manual) Eosinophils % (Manual) Basophils % (Manual) Nucleated RBC % Seg Neutrophils # Seg Neutrophils # Man Lymphocytes # (Manual) Monocytes # (Manual) Eosinophils # (Manual) Basophils # (Manual) PT INR Fibrinogen dRVVT Confirm Interp Factor V Activity POC ABG pH POC ABG pCO2 POC ABG pO2 ABG pO2 ABG HCO3 ABG Base Excess ABG Hemoglobin Oxyhemoglobin Sodium Potassium Chloride Carbon Dioxide BUN Creatinine Glucose POC Glucose 170 H 167 H 126 H Lactic Acid Calcium Phosphorus Magnesium Direct Bilirubin AST ALT Alkaline Phosphatase Lactate Dehydrogenase Troponin T C-Reactive Protein Total Protein Albumin Prealbumin Triglycerides Cholesterol LDL Cholesterol Direct HDL Cholesterol PTH Intact Urine pH Urine WBC (Auto) Urine Creatinine Urine Total Protein Fluid Total Protein Vancomycin Trough Rheumatoid Factor Complement C4 Miscellaneous Test Crossmatch 10/17/16 10/18/16 10/18/16 23:17 04:00 04:00 WBC 20.7 H RBC 2.47 L Hgb 7.4 L Hct 22.9 L MCV MCH MCHC RDW 17.5 H Plt Count Lymph % (Auto) [place] % (Auto) Lymph # [place] # Baso # Seg Neutrophils % Seg Neuts % (Manual) Lymphocytes % (Manual) Monocytes % (Manual) Eosinophils % (Manual) Basophils % (Manual) Nucleated RBC % Seg Neutrophils # Seg Neutrophils # Man Lymphocytes # (Manual) Monocytes # (Manual) Eosinophils # (Manual) Basophils # (Manual) PT INR Fibrinogen dRVVT Confirm Interp Factor V Activity POC ABG pH POC ABG pCO2 POC ABG pO2 ABG pO2 ABG HCO3 ABG Base Excess ABG Hemoglobin Oxyhemoglobin Sodium 149 H Potassium Chloride 107.9 H Carbon Dioxide 20 L BUN 117 H Creatinine 3.2 H Glucose 119 H POC Glucose 121 H Lactic Acid Calcium Phosphorus Magnesium Direct Bilirubin AST ALT Alkaline Phosphatase Lactate Dehydrogenase Troponin T C-Reactive Protein Total Protein Albumin Prealbumin Triglycerides Cholesterol LDL Cholesterol Direct HDL Cholesterol PTH Intact Urine pH Urine WBC (Auto) Urine Creatinine Urine Total Protein Fluid Total Protein Vancomycin Trough Rheumatoid Factor Complement C4 Miscellaneous Test Crossmatch 10/18/16 10/18/1617 05:23 10:46 17:30 WBC RBC Hgb Hct MCV MCH MCHC RDW Plt Count Lymph % (Auto) [place] % (Auto) Lymph # [place] # Baso # Seg Neutrophils % Seg Neuts % (Manual) Lymphocytes % (Manual) Monocytes % (Manual) Eosinophils % (Manual) Basophils % (Manual) Nucleated RBC % Seg Neutrophils # Seg Neutrophils # Man Lymphocytes # (Manual) Monocytes # (Manual) Eosinophils # (Manual) Basophils # (Manual) PT INR Fibrinogen dRVVT Confirm Interp Factor V Activity POC ABG pH POC ABG pCO2 POC ABG pO2 ABG pO2 ABG HCO3 ABG Base Excess ABG Hemoglobin Oxyhemoglobin Sodium Potassium Chloride Carbon Dioxide BUN Creatinine Glucose POC Glucose 119 H 155 H 124 H Lactic Acid Calcium Phosphorus Magnesium Direct Bilirubin AST ALT Alkaline Phosphatase Lactate Dehydrogenase Troponin T C-Reactive Protein Total Protein Albumin Prealbumin Triglycerides Cholesterol LDL Cholesterol Direct HDL Cholesterol PTH Intact Urine pH Urine WBC (Auto) Urine Creatinine Urine Total Protein Fluid Total Protein Vancomycin Trough Rheumatoid Factor Complement C4 Miscellaneous Test Crossmatch 10/19/16 10/19/16 10/19/16 04:00 04:00 05:25 WBC 17.4 H RBC 2.54 L Hgb 7.7 L Hct 23.6 L MCV MCH MCHC RDW 17.3 H Plt Count Lymph % (Auto) [place] % (Auto) Lymph # [place] # Baso # Seg Neutrophils % Seg Neuts % (Manual) Lymphocytes % (Manual) Monocytes % (Manual) Eosinophils % (Manual) Basophils % (Manual) Nucleated RBC % Seg Neutrophils # Seg Neutrophils # Man Lymphocytes # (Manual) Monocytes # (Manual) Eosinophils # (Manual) Basophils # (Manual) PT INR Fibrinogen dRVVT Confirm Interp Factor V Activity POC ABG pH POC ABG pCO2 POC ABG pO2 ABG pO2 ABG HCO3 ABG Base Excess ABG Hemoglobin Oxyhemoglobin Sodium Potassium Chloride Carbon Dioxide BUN 72 H Creatinine 2.1 H Glucose 116 H POC Glucose 119 H Lactic Acid Calcium Phosphorus Magnesium Direct Bilirubin AST ALT Alkaline Phosphatase Lactate Dehydrogenase Troponin T C-Reactive Protein Total Protein Albumin Prealbumin Triglycerides Cholesterol LDL Cholesterol Direct HDL Cholesterol PTH Intact Urine pH Urine WBC (Auto) Urine Creatinine Urine Total Protein Fluid Total Protein Vancomycin Trough Rheumatoid Factor Complement C4 Miscellaneous Test Crossmatch 10/19/16 10/19/16 10/20/16 11:46 23:59 06:00 WBC RBC Hgb Hct MCV MCH MCHC RDW Plt Count Lymph % (Auto) [place] % (Auto) Lymph # [place] # Baso # Seg Neutrophils % Seg Neuts % (Manual) Lymphocytes % (Manual) Monocytes % (Manual) Eosinophils % (Manual) Basophils % (Manual) Nucleated RBC % Seg Neutrophils # Seg Neutrophils # Man Lymphocytes # (Manual) Monocytes # (Manual) Eosinophils # (Manual) Basophils # (Manual) PT INR Fibrinogen dRVVT Confirm Interp Factor V Activity POC ABG pH POC ABG pCO2 POC ABG pO2 ABG pO2 ABG HCO3 ABG Base Excess ABG Hemoglobin Oxyhemoglobin Sodium Potassium Chloride Carbon Dioxide 17 L BUN 94 H Creatinine 2.7 H Glucose POC Glucose 116 H 117 H Lactic Acid Calcium Phosphorus Magnesium Direct Bilirubin AST ALT Alkaline Phosphatase Lactate Dehydrogenase Troponin T C-Reactive Protein Total Protein Albumin Prealbumin Triglycerides Cholesterol LDL Cholesterol Direct HDL Cholesterol PTH Intact Urine pH Urine WBC (Auto) Urine Creatinine Urine Total Protein Fluid Total Protein Vancomycin Trough Rheumatoid Factor Complement C4 Miscellaneous Test Crossmatch 10/20/16 10/20/16 10/20/16 06:00 11:49 16:00 WBC 19.7 H RBC 2.51 L Hgb 7.7 L Hct 23.5 L MCV MCH MCHC RDW 17.5 H Plt Count Lymph % (Auto) [place] % (Auto) Lymph # [place] # Baso # Seg Neutrophils % Seg Neuts % (Manual) Lymphocytes % (Manual) Monocytes % (Manual) Eosinophils % (Manual) Basophils % (Manual) Nucleated RBC % Seg Neutrophils # Seg Neutrophils # Man Lymphocytes # (Manual) Monocytes # (Manual) Eosinophils # (Manual) Basophils # (Manual) PT INR Fibrinogen dRVVT Confirm Interp Factor V Activity POC ABG pH POC ABG pCO2 POC ABG pO2 ABG pO2 ABG HCO3 ABG Base Excess ABG Hemoglobin Oxyhemoglobin Sodium Potassium Chloride Carbon Dioxide BUN Creatinine Glucose POC Glucose 117 H Lactic Acid Calcium Phosphorus Magnesium Direct Bilirubin AST ALT Alkaline Phosphatase Lactate Dehydrogenase Troponin T C-Reactive Protein Total Protein Albumin Prealbumin Triglycerides Cholesterol LDL Cholesterol Direct HDL Cholesterol PTH Intact Urine pH Urine WBC (Auto) Urine Creatinine Urine Total Protein Fluid Total Protein Vancomycin Trough Rheumatoid Factor Complement C4 Miscellaneous Test Flexitest 1 H Crossmatch 10/20/16 10/20/16 10/21/16 18:36 23:39 04:00 WBC RBC Hgb Hct MCV MCH MCHC RDW Plt Count Lymph % (Auto) [place] % (Auto) Lymph # [place] # Baso # Seg Neutrophils % Seg Neuts % (Manual) Lymphocytes % (Manual) Monocytes % (Manual) Eosinophils % (Manual) Basophils % (Manual) Nucleated RBC % Seg Neutrophils # Seg Neutrophils # Man Lymphocytes # (Manual) Monocytes # (Manual) Eosinophils # (Manual) Basophils # (Manual) PT INR Fibrinogen dRVVT Confirm Interp Factor V Activity POC ABG pH POC ABG pCO2 POC ABG pO2 ABG pO2 ABG HCO3 ABG Base Excess ABG Hemoglobin Oxyhemoglobin Sodium Potassium 5.4 H D Chloride Carbon Dioxide 15 L BUN 110 H Creatinine 3.0 H Glucose POC Glucose 127 H 114 H Lactic Acid Calcium Phosphorus Magnesium Direct Bilirubin AST ALT Alkaline Phosphatase Lactate Dehydrogenase Troponin T C-Reactive Protein Total Protein Albumin Prealbumin Triglycerides Cholesterol LDL Cholesterol Direct HDL Cholesterol PTH Intact Urine pH Urine WBC (Auto) Urine Creatinine Urine Total Protein Fluid Total Protein Vancomycin Trough Rheumatoid Factor Complement C4 Miscellaneous Test Crossmatch 10/21/16 10/21/16 10/22/16 05:54 23:46 05:18 WBC RBC Hgb Hct MCV MCH MCHC RDW Plt Count Lymph % (Auto) [place] % (Auto) Lymph # [place] # Baso # Seg Neutrophils % Seg Neuts % (Manual) Lymphocytes % (Manual) Monocytes % (Manual) Eosinophils % (Manual) Basophils % (Manual) Nucleated RBC % Seg Neutrophils # Seg Neutrophils # Man Lymphocytes # (Manual) Monocytes # (Manual) Eosinophils # (Manual) Basophils # (Manual) PT INR Fibrinogen dRVVT Confirm Interp Factor V Activity POC ABG pH POC ABG pCO2 POC ABG pO2 ABG pO2 ABG HCO3 ABG Base Excess ABG Hemoglobin Oxyhemoglobin Sodium Potassium Chloride Carbon Dioxide BUN Creatinine Glucose POC Glucose 119 H 108 H 109 H Lactic Acid Calcium Phosphorus Magnesium Direct Bilirubin AST ALT Alkaline Phosphatase Lactate Dehydrogenase Troponin T C-Reactive Protein Total Protein Albumin Prealbumin Triglycerides Cholesterol LDL Cholesterol Direct HDL Cholesterol PTH Intact Urine pH Urine WBC (Auto) Urine Creatinine Urine Total Protein Fluid Total Protein Vancomycin Trough Rheumatoid Factor Complement C4 Miscellaneous Test Crossmatch 10/22/16 10/22/16 10/22/16 06:40 06:40 06:40 WBC 14.0 H RBC 2.03 L Hgb 7.0 L Hct 20.5 L MCV 98 H MCH 34 H MCHC 35 H RDW 17.8 H Plt Count Lymph % (Auto) [place] % (Auto) 9.9 H Lymph # [place] # 1.4 H Baso # 0.2 H Seg Neutrophils % 72.0 H Seg Neuts % (Manual) Lymphocytes % (Manual) Monocytes % (Manual) Eosinophils % (Manual) Basophils % (Manual) Nucleated RBC % Seg Neutrophils # 10.0 H Seg Neutrophils # Man Lymphocytes # (Manual) Monocytes # (Manual) Eosinophils # (Manual) Basophils # (Manual) PT INR Fibrinogen dRVVT Confirm Interp Factor V Activity POC ABG pH POC ABG pCO2 POC ABG pO2 ABG pO2 ABG HCO3 ABG Base Excess ABG Hemoglobin Oxyhemoglobin Sodium 130 L D Potassium Chloride 92.4 L Carbon Dioxide 20 L BUN 50 H Creatinine 1.6 H Glucose 589 H* POC Glucose Lactic Acid Calcium 7.8 L D Phosphorus Magnesium 1.60 L Direct Bilirubin AST ALT Alkaline Phosphatase Lactate Dehydrogenase Troponin T C-Reactive Protein Total Protein Albumin Prealbumin Triglycerides Cholesterol LDL Cholesterol Direct HDL Cholesterol PTH Intact Urine pH Urine WBC (Auto) Urine Creatinine Urine Total Protein Fluid Total Protein Vancomycin Trough Rheumatoid Factor Complement C4 Miscellaneous Test Crossmatch 10/22/16 10/22/16 10/22/16 11:39 16:44 23:36 WBC RBC Hgb Hct MCV MCH MCHC RDW Plt Count Lymph % (Auto) [place] % (Auto) Lymph # [place] # Baso # Seg Neutrophils % Seg Neuts % (Manual) Lymphocytes % (Manual) Monocytes % (Manual) Eosinophils % (Manual) Basophils % (Manual) Nucleated RBC % Seg Neutrophils # Seg Neutrophils # Man Lymphocytes # (Manual) Monocytes # (Manual) Eosinophils # (Manual) Basophils # (Manual) PT INR Fibrinogen dRVVT Confirm Interp Factor V Activity POC ABG pH POC ABG pCO2 POC ABG pO2 ABG pO2 ABG HCO3 ABG Base Excess ABG Hemoglobin Oxyhemoglobin Sodium Potassium Chloride Carbon Dioxide BUN Creatinine Glucose POC Glucose 142 H 163 H 123 H Lactic Acid Calcium Phosphorus Magnesium Direct Bilirubin AST ALT Alkaline Phosphatase Lactate Dehydrogenase Troponin T C-Reactive Protein Total Protein Albumin Prealbumin Triglycerides Cholesterol LDL Cholesterol Direct HDL Cholesterol PTH Intact Urine pH Urine WBC (Auto) Urine Creatinine Urine Total Protein Fluid Total Protein Vancomycin Trough Rheumatoid Factor Complement C4 Miscellaneous Test Crossmatch 10/23/16 10/23/16 10/23/16 04:58 06:00 12:12 WBC RBC Hgb Hct MCV MCH MCHC RDW Plt Count Lymph % (Auto) [place] % (Auto) Lymph # [place] # Baso # Seg Neutrophils % Seg Neuts % (Manual) Lymphocytes % (Manual) Monocytes % (Manual) Eosinophils % (Manual) Basophils % (Manual) Nucleated RBC % Seg Neutrophils # Seg Neutrophils # Man Lymphocytes # (Manual) Monocytes # (Manual) Eosinophils # (Manual) Basophils # (Manual) PT INR Fibrinogen dRVVT Confirm Interp Factor V Activity POC ABG pH POC ABG pCO2 POC ABG pO2 ABG pO2 ABG HCO3 ABG Base Excess ABG Hemoglobin Oxyhemoglobin Sodium 133 L Potassium 3.5 L Chloride 96.1 L Carbon Dioxide 18 L BUN 76 H Creatinine 2.1 H Glucose POC Glucose 133 H 138 H Lactic Acid Calcium 8.3 L Phosphorus Magnesium Direct Bilirubin AST ALT Alkaline Phosphatase Lactate Dehydrogenase Troponin T C-Reactive Protein Total Protein Albumin Prealbumin Triglycerides Cholesterol LDL Cholesterol Direct HDL Cholesterol PTH Intact Urine pH Urine WBC (Auto) Urine Creatinine Urine Total Protein Fluid Total Protein Vancomycin Trough Rheumatoid Factor Complement C4 Miscellaneous Test Crossmatch 10/23/16 10/23/16 10/24/16 16:53 23:37 04:00 WBC RBC Hgb Hct MCV MCH MCHC RDW Plt Count Lymph % (Auto) [place] % (Auto) Lymph # [place] # Baso # Seg Neutrophils % Seg Neuts % (Manual) Lymphocytes % (Manual) Monocytes % (Manual) Eosinophils % (Manual) Basophils % (Manual) Nucleated RBC % Seg Neutrophils # Seg Neutrophils # Man Lymphocytes # (Manual) Monocytes # (Manual) Eosinophils # (Manual) Basophils # (Manual) PT INR Fibrinogen dRVVT Confirm Interp Factor V Activity POC ABG pH POC ABG pCO2 POC ABG pO2 ABG pO2 ABG HCO3 ABG Base Excess ABG Hemoglobin Oxyhemoglobin Sodium 131 L Potassium Chloride 94.5 L Carbon Dioxide 19 L BUN 97 H Creatinine 2.6 H Glucose 110 H POC Glucose 125 H 123 H Lactic Acid Calcium 8.3 L Phosphorus Magnesium Direct Bilirubin AST ALT Alkaline Phosphatase Lactate Dehydrogenase Troponin T C-Reactive Protein Total Protein Albumin Prealbumin Triglycerides Cholesterol LDL Cholesterol Direct HDL Cholesterol PTH Intact Urine pH Urine WBC (Auto) Urine Creatinine Urine Total Protein Fluid Total Protein Vancomycin Trough Rheumatoid Factor Complement C4 Miscellaneous Test Crossmatch 10/24/16 10/24/16 10/24/16 07:49 11:39 17:52 WBC RBC Hgb 6.0 L Hct 19.7 L* MCV MCH MCHC RDW Plt Count Lymph % (Auto) [place] % (Auto) Lymph # [place] # Baso # Seg Neutrophils % Seg Neuts % (Manual) Lymphocytes % (Manual) Monocytes % (Manual) Eosinophils % (Manual) Basophils % (Manual) Nucleated RBC % Seg Neutrophils # Seg Neutrophils # Man Lymphocytes # (Manual) Monocytes # (Manual) Eosinophils # (Manual) Basophils # (Manual) PT INR Fibrinogen dRVVT Confirm Interp Factor V Activity POC ABG pH POC ABG pCO2 POC ABG pO2 ABG pO2 ABG HCO3 ABG Base Excess ABG Hemoglobin Oxyhemoglobin Sodium Potassium Chloride Carbon Dioxide BUN Creatinine Glucose POC Glucose 106 H 158 H Lactic Acid Calcium Phosphorus Magnesium Direct Bilirubin AST ALT Alkaline Phosphatase Lactate Dehydrogenase Troponin T C-Reactive Protein Total Protein Albumin Prealbumin Triglycerides Cholesterol LDL Cholesterol Direct HDL Cholesterol PTH Intact Urine pH Urine WBC (Auto) Urine Creatinine Urine Total Protein Fluid Total Protein Vancomycin Trough Rheumatoid Factor Complement C4 Miscellaneous Test Crossmatch 10/24/16 10/24/16 10/24/16 20:00 22:27 Unknown WBC RBC Hgb 9.4 L D Hct 27.5 L D MCV MCH MCHC RDW Plt Count Lymph % (Auto) [place] % (Auto) Lymph # [place] # Baso # Seg Neutrophils % Seg Neuts % (Manual) Lymphocytes % (Manual) Monocytes % (Manual) Eosinophils % (Manual) Basophils % (Manual) Nucleated RBC % Seg Neutrophils # Seg Neutrophils # Man Lymphocytes # (Manual) Monocytes # (Manual) Eosinophils # (Manual) Basophils # (Manual) PT INR Fibrinogen dRVVT Confirm Interp Factor V Activity POC ABG pH POC ABG pCO2 POC ABG pO2 ABG pO2 ABG HCO3 ABG Base Excess ABG Hemoglobin Oxyhemoglobin Sodium Potassium Chloride Carbon Dioxide BUN Creatinine Glucose POC Glucose 125 H Lactic Acid Calcium Phosphorus Magnesium Direct Bilirubin AST ALT Alkaline Phosphatase Lactate Dehydrogenase Troponin T C-Reactive Protein Total Protein Albumin Prealbumin Triglycerides Cholesterol LDL Cholesterol Direct HDL Cholesterol PTH Intact Urine pH Urine WBC (Auto) Urine Creatinine Urine Total Protein Fluid Total Protein Vancomycin Trough Rheumatoid Factor Complement C4 Miscellaneous Test Crossmatch See Detail 10/25/16 10/25/16 10/25/16 04:00 04:00 04:00 WBC 14.2 H RBC 2.98 L Hgb 9.0 L Hct 26.2 L MCV MCH MCHC RDW 16.6 H Plt Count Lymph % (Auto) [place] % (Auto) 10.7 H Lymph # [place] # 1.5 H Baso # Seg Neutrophils % 73.6 H Seg Neuts % (Manual) Lymphocytes % (Manual) Monocytes % (Manual) Eosinophils % (Manual) Basophils % (Manual) Nucleated RBC % Seg Neutrophils # 10.5 H Seg Neutrophils # Man Lymphocytes # (Manual) Monocytes # (Manual) Eosinophils # (Manual) Basophils # (Manual) PT INR Fibrinogen dRVVT Confirm Interp Factor V Activity POC ABG pH POC ABG pCO2 POC ABG pO2 ABG pO2 ABG HCO3 ABG Base Excess ABG Hemoglobin Oxyhemoglobin Sodium 132 L Potassium Chloride 94.7 L Carbon Dioxide BUN 51 H Creatinine 1.6 H Glucose 130 H POC Glucose Lactic Acid Calcium 8.3 L Phosphorus 1.60 L D Magnesium Direct Bilirubin AST ALT Alkaline Phosphatase Lactate Dehydrogenase Troponin T C-Reactive Protein Total Protein Albumin Prealbumin Triglycerides Cholesterol LDL Cholesterol Direct HDL Cholesterol PTH Intact Urine pH Urine WBC (Auto) Urine Creatinine Urine Total Protein Fluid Total Protein Vancomycin Trough Rheumatoid Factor Complement C4 Miscellaneous Test Crossmatch 10/25/16 10/25/16 10/25/16 04:32 11:48 17:22 WBC RBC Hgb Hct MCV MCH MCHC RDW Plt Count Lymph % (Auto) [place] % (Auto) Lymph # [place] # Baso # Seg Neutrophils % Seg Neuts % (Manual) Lymphocytes % (Manual) Monocytes % (Manual) Eosinophils % (Manual) Basophils % (Manual) Nucleated RBC % Seg Neutrophils # Seg Neutrophils # Man Lymphocytes # (Manual) Monocytes # (Manual) Eosinophils # (Manual) Basophils # (Manual) PT INR Fibrinogen dRVVT Confirm Interp Factor V Activity POC ABG pH POC ABG pCO2 POC ABG pO2 ABG pO2 ABG HCO3 ABG Base Excess ABG Hemoglobin Oxyhemoglobin Sodium Potassium Chloride Carbon Dioxide BUN Creatinine Glucose POC Glucose 124 H 171 H 120 H Lactic Acid Calcium Phosphorus Magnesium Direct Bilirubin AST ALT Alkaline Phosphatase Lactate Dehydrogenase Troponin T C-Reactive Protein Total Protein Albumin Prealbumin Triglycerides Cholesterol LDL Cholesterol Direct HDL Cholesterol PTH Intact Urine pH Urine WBC (Auto) Urine Creatinine Urine Total Protein Fluid Total Protein Vancomycin Trough Rheumatoid Factor Complement C4 Miscellaneous Test Crossmatch 10/26/16 10/26/16 10/26/16 04:54 07:06 07:06 WBC 16.9 H RBC 3.06 L Hgb 9.1 L Hct 26.9 L MCV MCH MCHC RDW 16.9 H Plt Count Lymph % (Auto) [place] % (Auto) Lymph # [place] # Baso # Seg Neutrophils % Seg Neuts % (Manual) 71.0 H Lymphocytes % (Manual) 5.0 L Monocytes % (Manual) 12.0 H Eosinophils % (Manual) Basophils % (Manual) Nucleated RBC % Seg Neutrophils # Seg Neutrophils # Man 12.0 H Lymphocytes # (Manual) 0.8 L Monocytes # (Manual) 2.0 H Eosinophils # (Manual) Basophils # (Manual) PT INR Fibrinogen dRVVT Confirm Interp Factor V Activity POC ABG pH POC ABG pCO2 POC ABG pO2 ABG pO2 ABG HCO3 ABG Base Excess ABG Hemoglobin Oxyhemoglobin Sodium 135 L Potassium Chloride 97.1 L Carbon Dioxide BUN 73 H Creatinine 2.2 H Glucose 117 H POC Glucose 123 H Lactic Acid Calcium Phosphorus 1.70 L Magnesium Direct Bilirubin AST ALT Alkaline Phosphatase Lactate Dehydrogenase Troponin T C-Reactive Protein Total Protein Albumin Prealbumin Triglycerides Cholesterol LDL Cholesterol Direct HDL Cholesterol PTH Intact Urine pH Urine WBC (Auto) Urine Creatinine Urine Total Protein Fluid Total Protein Vancomycin Trough Rheumatoid Factor Complement C4 Miscellaneous Test Crossmatch 10/26/16 10/26/16 10/26/16 12:12 17:29 23:42 WBC RBC Hgb Hct MCV MCH MCHC RDW Plt Count Lymph % (Auto) [place] % (Auto) Lymph # [place] # Baso # Seg Neutrophils % Seg Neuts % (Manual) Lymphocytes % (Manual) Monocytes % (Manual) Eosinophils % (Manual) Basophils % (Manual) Nucleated RBC % Seg Neutrophils # Seg Neutrophils # Man Lymphocytes # (Manual) Monocytes # (Manual) Eosinophils # (Manual) Basophils # (Manual) PT INR Fibrinogen dRVVT Confirm Interp Factor V Activity POC ABG pH POC ABG pCO2 POC ABG pO2 ABG pO2 ABG HCO3 ABG Base Excess ABG Hemoglobin Oxyhemoglobin Sodium Potassium Chloride Carbon Dioxide BUN Creatinine Glucose POC Glucose 126 H 161 H 118 H Lactic Acid Calcium Phosphorus Magnesium Direct Bilirubin AST ALT Alkaline Phosphatase Lactate Dehydrogenase Troponin T C-Reactive Protein Total Protein Albumin Prealbumin Triglycerides Cholesterol LDL Cholesterol Direct HDL Cholesterol PTH Intact Urine pH Urine WBC (Auto) Urine Creatinine Urine Total Protein Fluid Total Protein Vancomycin Trough Rheumatoid Factor Complement C4 Miscellaneous Test Crossmatch 10/27/16 10/27/16 10/27/16 05:03 06:30 06:30 WBC 13.9 H RBC 3.09 L Hgb 9.2 L Hct 27.5 L MCV MCH MCHC RDW 17.0 H Plt Count Lymph % (Auto) [place] % (Auto) Lymph # [place] # Baso # Seg Neutrophils % Seg Neuts % (Manual) 78.0 H Lymphocytes % (Manual) Monocytes % (Manual) Eosinophils % (Manual) Basophils % (Manual) Nucleated RBC % 2.0 H Seg Neutrophils # Seg Neutrophils # Man 10.8 H Lymphocytes # (Manual) Monocytes # (Manual) 1.0 H Eosinophils # (Manual) Basophils # (Manual) PT INR Fibrinogen dRVVT Confirm Interp Factor V Activity POC ABG pH POC ABG pCO2 POC ABG pO2 ABG pO2 ABG HCO3 ABG Base Excess ABG Hemoglobin Oxyhemoglobin Sodium Potassium Chloride Carbon Dioxide BUN 40 H Creatinine 1.5 H Glucose 135 H POC Glucose 107 H Lactic Acid Calcium 8.3 L Phosphorus 1.30 L D Magnesium Direct Bilirubin AST ALT Alkaline Phosphatase Lactate Dehydrogenase Troponin T C-Reactive Protein Total Protein Albumin Prealbumin Triglycerides Cholesterol LDL Cholesterol Direct HDL Cholesterol PTH Intact Urine pH Urine WBC (Auto) Urine Creatinine Urine Total Protein Fluid Total Protein Vancomycin Trough Rheumatoid Factor Complement C4 Miscellaneous Test Crossmatch 10/27/16 10/27/16 10/27/16 13:27 18:07 23:40 WBC RBC Hgb Hct MCV MCH MCHC RDW Plt Count Lymph % (Auto) [place] % (Auto) Lymph # [place] # Baso # Seg Neutrophils % Seg Neuts % (Manual) Lymphocytes % (Manual) Monocytes % (Manual) Eosinophils % (Manual) Basophils % (Manual) Nucleated RBC % Seg Neutrophils # Seg Neutrophils # Man Lymphocytes # (Manual) Monocytes # (Manual) Eosinophils # (Manual) Basophils # (Manual) PT INR Fibrinogen dRVVT Confirm Interp Factor V Activity POC ABG pH POC ABG pCO2 POC ABG pO2 ABG pO2 ABG HCO3 ABG Base Excess ABG Hemoglobin Oxyhemoglobin Sodium Potassium Chloride Carbon Dioxide BUN Creatinine Glucose POC Glucose 117 H 121 H 118 H Lactic Acid Calcium Phosphorus Magnesium Direct Bilirubin AST ALT Alkaline Phosphatase Lactate Dehydrogenase Troponin T C-Reactive Protein Total Protein Albumin Prealbumin Triglycerides Cholesterol LDL Cholesterol Direct HDL Cholesterol PTH Intact Urine pH Urine WBC (Auto) Urine Creatinine Urine Total Protein Fluid Total Protein Vancomycin Trough Rheumatoid Factor Complement C4 Miscellaneous Test Crossmatch 10/28/16 10/28/16 10/28/16 05:48 06:45 06:45 WBC 14.7 H RBC 3.05 L Hgb 9.0 L Hct 26.9 L MCV MCH MCHC RDW 16.8 H Plt Count Lymph % (Auto) 8.2 L [place] % (Auto) 8.4 H Lymph # [place] # 1.2 H Baso # Seg Neutrophils % 81.9 H Seg Neuts % (Manual) Lymphocytes % (Manual) Monocytes % (Manual) Eosinophils % (Manual) Basophils % (Manual) Nucleated RBC % Seg Neutrophils # 12.1 H Seg Neutrophils # Man Lymphocytes # (Manual) Monocytes # (Manual) Eosinophils # (Manual) Basophils # (Manual) PT INR Fibrinogen dRVVT Confirm Interp Factor V Activity POC ABG pH POC ABG pCO2 POC ABG pO2 ABG pO2 ABG HCO3 ABG Base Excess ABG Hemoglobin Oxyhemoglobin Sodium Potassium Chloride Carbon Dioxide BUN 60 H Creatinine 1.9 H Glucose 120 H POC Glucose 114 H Lactic Acid Calcium Phosphorus Magnesium Direct Bilirubin AST ALT Alkaline Phosphatase Lactate Dehydrogenase Troponin T C-Reactive Protein Total Protein Albumin Prealbumin Triglycerides Cholesterol LDL Cholesterol Direct HDL Cholesterol PTH Intact Urine pH Urine WBC (Auto) Urine Creatinine Urine Total Protein Fluid Total Protein Vancomycin Trough Rheumatoid Factor Complement C4 Miscellaneous Test Crossmatch 10/28/16 10/28/16 10/29/16 17:08 23:50 05:10 WBC RBC Hgb Hct MCV MCH MCHC RDW Plt Count Lymph % (Auto) [place] % (Auto) Lymph # [place] # Baso # Seg Neutrophils % Seg Neuts % (Manual) Lymphocytes % (Manual) Monocytes % (Manual) Eosinophils % (Manual) Basophils % (Manual) Nucleated RBC % Seg Neutrophils # Seg Neutrophils # Man Lymphocytes # (Manual) Monocytes # (Manual) Eosinophils # (Manual) Basophils # (Manual) PT INR Fibrinogen dRVVT Confirm Interp Factor V Activity POC ABG pH POC ABG pCO2 POC ABG pO2 ABG pO2 ABG HCO3 ABG Base Excess ABG Hemoglobin Oxyhemoglobin Sodium Potassium Chloride Carbon Dioxide BUN Creatinine Glucose POC Glucose 109 H 110 H 124 H Lactic Acid Calcium Phosphorus Magnesium Direct Bilirubin AST ALT Alkaline Phosphatase Lactate Dehydrogenase Troponin T C-Reactive Protein Total Protein Albumin Prealbumin Triglycerides Cholesterol LDL Cholesterol Direct HDL Cholesterol PTH Intact Urine pH Urine WBC (Auto) Urine Creatinine Urine Total Protein Fluid Total Protein Vancomycin Trough Rheumatoid Factor Complement C4 Miscellaneous Test Crossmatch 10/29/16 10/29/16 10/29/16 07:45 07:45 12:19 WBC 14.7 H RBC 3.15 L Hgb 9.3 L Hct 28.9 L MCV MCH MCHC RDW 17.0 H Plt Count Lymph % (Auto) 11.9 L [place] % (Auto) 8.6 H Lymph # [place] # 1.3 H Baso # Seg Neutrophils % 78.1 H Seg Neuts % (Manual) Lymphocytes % (Manual) Monocytes % (Manual) Eosinophils % (Manual) Basophils % (Manual) Nucleated RBC % Seg Neutrophils # 11.4 H Seg Neutrophils # Man Lymphocytes # (Manual) Monocytes # (Manual) Eosinophils # (Manual) Basophils # (Manual) PT INR Fibrinogen dRVVT Confirm Interp Factor V Activity POC ABG pH POC ABG pCO2 POC ABG pO2 ABG pO2 ABG HCO3 ABG Base Excess ABG Hemoglobin Oxyhemoglobin Sodium Potassium 5.1 H Chloride Carbon Dioxide 19 L BUN 78 H Creatinine 2.2 H Glucose 116 H POC Glucose 118 H Lactic Acid Calcium Phosphorus Magnesium Direct Bilirubin AST ALT Alkaline Phosphatase Lactate Dehydrogenase Troponin T C-Reactive Protein Total Protein Albumin Prealbumin Triglycerides Cholesterol LDL Cholesterol Direct HDL Cholesterol PTH Intact Urine pH Urine WBC (Auto) Urine Creatinine Urine Total Protein Fluid Total Protein Vancomycin Trough Rheumatoid Factor Complement C4 Miscellaneous Test Crossmatch 10/29/16 10/30/16 10/30/16 17:49 01:52 03:28 WBC RBC Hgb Hct MCV MCH MCHC RDW Plt Count Lymph % (Auto) [place] % (Auto) Lymph # [place] # Baso # Seg Neutrophils % Seg Neuts % (Manual) Lymphocytes % (Manual) Monocytes % (Manual) Eosinophils % (Manual) Basophils % (Manual) Nucleated RBC % Seg Neutrophils # Seg Neutrophils # Man Lymphocytes # (Manual) Monocytes # (Manual) Eosinophils # (Manual) Basophils # (Manual) PT INR Fibrinogen dRVVT Confirm Interp Factor V Activity POC ABG pH POC ABG pCO2 POC ABG pO2 ABG pO2 ABG HCO3 ABG Base Excess ABG Hemoglobin Oxyhemoglobin Sodium Potassium 5.4 H Chloride 97.5 L Carbon Dioxide 19 L BUN 90 H Creatinine 2.5 H Glucose POC Glucose 120 H 129 H Lactic Acid Calcium Phosphorus 5.20 H Magnesium Direct Bilirubin AST ALT Alkaline Phosphatase Lactate Dehydrogenase Troponin T C-Reactive Protein Total Protein Albumin Prealbumin Triglycerides Cholesterol LDL Cholesterol Direct HDL Cholesterol PTH Intact Urine pH Urine WBC (Auto) Urine Creatinine Urine Total Protein Fluid Total Protein Vancomycin Trough Rheumatoid Factor Complement C4 Miscellaneous Test Crossmatch 10/30/16 10/30/16 10/30/16 03:28 08:19 08:19 WBC 11.6 H 15.9 H RBC 2.75 L 2.82 L Hgb 7.9 L 8.3 L Hct 24.2 L 25.2 L MCV MCH MCHC RDW 16.7 H 17.2 H Plt Count Lymph % (Auto) [place] % (Auto) 9.8 H Lymph # [place] # 1.1 H Baso # Seg Neutrophils % 74.2 H Seg Neuts % (Manual) Lymphocytes % (Manual) Monocytes % (Manual) Eosinophils % (Manual) Basophils % (Manual) Nucleated RBC % Seg Neutrophils # 8.6 H Seg Neutrophils # Man Lymphocytes # (Manual) Monocytes # (Manual) Eosinophils # (Manual) Basophils # (Manual) PT INR Fibrinogen dRVVT Confirm Interp Factor V Activity POC ABG pH POC ABG pCO2 POC ABG pO2 ABG pO2 ABG HCO3 ABG Base Excess ABG Hemoglobin Oxyhemoglobin Sodium Potassium 5.3 H Chloride 97.4 L Carbon Dioxide 19 L BUN 93 H Creatinine 2.6 H Glucose POC Glucose Lactic Acid Calcium Phosphorus Magnesium Direct Bilirubin AST ALT Alkaline Phosphatase Lactate Dehydrogenase Troponin T C-Reactive Protein Total Protein Albumin Prealbumin Triglycerides Cholesterol LDL Cholesterol Direct HDL Cholesterol PTH Intact Urine pH Urine WBC (Auto) Urine Creatinine Urine Total Protein Fluid Total Protein Vancomycin Trough Rheumatoid Factor Complement C4 Miscellaneous Test Crossmatch 10/30/16 10/30/16 10/31/16 17:11 23:56 00:40 WBC RBC Hgb Hct MCV MCH MCHC RDW Plt Count Lymph % (Auto) [place] % (Auto) Lymph # [place] # Baso # Seg Neutrophils % Seg Neuts % (Manual) Lymphocytes % (Manual) Monocytes % (Manual) Eosinophils % (Manual) Basophils % (Manual) Nucleated RBC % Seg Neutrophils # Seg Neutrophils # Man Lymphocytes # (Manual) Monocytes # (Manual) Eosinophils # (Manual) Basophils # (Manual) PT INR Fibrinogen dRVVT Confirm Interp Factor V Activity POC ABG pH POC ABG pCO2 POC ABG pO2 ABG pO2 ABG HCO3 ABG Base Excess ABG Hemoglobin Oxyhemoglobin Sodium Potassium Chloride Carbon Dioxide BUN Creatinine Glucose POC Glucose 106 H 117 H 120 H Lactic Acid Calcium Phosphorus Magnesium Direct Bilirubin AST ALT Alkaline Phosphatase Lactate Dehydrogenase Troponin T C-Reactive Protein Total Protein Albumin Prealbumin Triglycerides Cholesterol LDL Cholesterol Direct HDL Cholesterol PTH Intact Urine pH Urine WBC (Auto) Urine Creatinine Urine Total Protein Fluid Total Protein Vancomycin Trough Rheumatoid Factor Complement C4 Miscellaneous Test Crossmatch 10/31/16 10/31/16 10/31/16 05:43 07:15 07:15 WBC 12.1 H RBC 2.63 L Hgb 7.7 L Hct 23.3 L MCV MCH MCHC RDW 16.7 H Plt Count Lymph % (Auto) 11.7 L [place] % (Auto) 7.7 H Lymph # [place] # 0.9 H Baso # Seg Neutrophils % 78.0 H Seg Neuts % (Manual) Lymphocytes % (Manual) Monocytes % (Manual) Eosinophils % (Manual) Basophils % (Manual) Nucleated RBC % Seg Neutrophils # 9.4 H Seg Neutrophils # Man Lymphocytes # (Manual) Monocytes # (Manual) Eosinophils # (Manual) Basophils # (Manual) PT INR Fibrinogen dRVVT Confirm Interp Factor V Activity POC ABG pH POC ABG pCO2 POC ABG pO2 ABG pO2 ABG HCO3 ABG Base Excess ABG Hemoglobin Oxyhemoglobin Sodium Potassium Chloride 96.4 L Carbon Dioxide 21 L BUN 99 H Creatinine 2.6 H Glucose 144 H POC Glucose 125 H Lactic Acid Calcium Phosphorus 4.80 H Magnesium Direct Bilirubin AST ALT Alkaline Phosphatase Lactate Dehydrogenase Troponin T C-Reactive Protein Total Protein Albumin Prealbumin Triglycerides Cholesterol LDL Cholesterol Direct HDL Cholesterol PTH Intact Urine pH Urine WBC (Auto) Urine Creatinine Urine Total Protein Fluid Total Protein Vancomycin Trough Rheumatoid Factor Complement C4 Miscellaneous Test Crossmatch 10/31/16 10/31/16 11/01/16 11:46 18:34 00:20 WBC RBC Hgb Hct MCV MCH MCHC RDW Plt Count Lymph % (Auto) [place] % (Auto) Lymph # [place] # Baso # Seg Neutrophils % Seg Neuts % (Manual) Lymphocytes % (Manual) Monocytes % (Manual) Eosinophils % (Manual) Basophils % (Manual) Nucleated RBC % Seg Neutrophils # Seg Neutrophils # Man Lymphocytes # (Manual) Monocytes # (Manual) Eosinophils # (Manual) Basophils # (Manual) PT INR Fibrinogen dRVVT Confirm Interp Factor V Activity POC ABG pH POC ABG pCO2 POC ABG pO2 ABG pO2 ABG HCO3 ABG Base Excess ABG Hemoglobin Oxyhemoglobin Sodium Potassium Chloride Carbon Dioxide BUN Creatinine Glucose POC Glucose 159 H 140 H 132 H Lactic Acid Calcium Phosphorus Magnesium Direct Bilirubin AST ALT Alkaline Phosphatase Lactate Dehydrogenase Troponin T C-Reactive Protein Total Protein Albumin Prealbumin Triglycerides Cholesterol LDL Cholesterol Direct HDL Cholesterol PTH Intact Urine pH Urine WBC (Auto) Urine Creatinine Urine Total Protein Fluid Total Protein Vancomycin Trough Rheumatoid Factor Complement C4 Miscellaneous Test Crossmatch 11/01/16 11/01/16 11/01/16 04:55 04:55 06:11 WBC 11.2 H RBC 2.68 L Hgb 7.5 L Hct 23.7 L MCV MCH MCHC RDW 16.1 H Plt Count Lymph % (Auto) [place] % (Auto) 9.8 H Lymph # [place] # 1.1 H Baso # Seg Neutrophils % 70.8 H Seg Neuts % (Manual) Lymphocytes % (Manual) Monocytes % (Manual) Eosinophils % (Manual) Basophils % (Manual) Nucleated RBC % Seg Neutrophils # 7.9 H Seg Neutrophils # Man Lymphocytes # (Manual) Monocytes # (Manual) Eosinophils # (Manual) Basophils # (Manual) PT INR Fibrinogen dRVVT Confirm Interp Factor V Activity POC ABG pH POC ABG pCO2 POC ABG pO2 ABG pO2 ABG HCO3 ABG Base Excess ABG Hemoglobin Oxyhemoglobin Sodium Potassium 3.3 L D Chloride Carbon Dioxide BUN 61 H Creatinine 1.9 H Glucose 114 H POC Glucose 115 H Lactic Acid Calcium Phosphorus 1.80 L D Magnesium Direct Bilirubin AST ALT Alkaline Phosphatase Lactate Dehydrogenase Troponin T C-Reactive Protein Total Protein Albumin Prealbumin Triglycerides Cholesterol LDL Cholesterol Direct HDL Cholesterol PTH Intact Urine pH Urine WBC (Auto) Urine Creatinine Urine Total Protein Fluid Total Protein Vancomycin Trough Rheumatoid Factor Complement C4 Miscellaneous Test Crossmatch 11/01/16 11/01/16 11/01/16 12:29 18:23 23:58 WBC RBC Hgb Hct MCV MCH MCHC RDW Plt Count Lymph % (Auto) [place] % (Auto) Lymph # [place] # Baso # Seg Neutrophils % Seg Neuts % (Manual) Lymphocytes % (Manual) Monocytes % (Manual) Eosinophils % (Manual) Basophils % (Manual) Nucleated RBC % Seg Neutrophils # Seg Neutrophils # Man Lymphocytes # (Manual) Monocytes # (Manual) Eosinophils # (Manual) Basophils # (Manual) PT INR Fibrinogen dRVVT Confirm Interp Factor V Activity POC ABG pH POC ABG pCO2 POC ABG pO2 ABG pO2 ABG HCO3 ABG Base Excess ABG Hemoglobin Oxyhemoglobin Sodium Potassium Chloride Carbon Dioxide BUN Creatinine Glucose POC Glucose 142 H 143 H 128 H Lactic Acid Calcium Phosphorus Magnesium Direct Bilirubin AST ALT Alkaline Phosphatase Lactate Dehydrogenase Troponin T C-Reactive Protein Total Protein Albumin Prealbumin Triglycerides Cholesterol LDL Cholesterol Direct HDL Cholesterol PTH Intact Urine pH Urine WBC (Auto) Urine Creatinine Urine Total Protein Fluid Total Protein Vancomycin Trough Rheumatoid Factor Complement C4 Miscellaneous Test Crossmatch 11/02/16 11/02/16 11/02/16 04:16 05:29 11:58 WBC RBC Hgb Hct MCV MCH MCHC RDW Plt Count Lymph % (Auto) [place] % (Auto) Lymph # [place] # Baso # Seg Neutrophils % Seg Neuts % (Manual) Lymphocytes % (Manual) Monocytes % (Manual) Eosinophils % (Manual) Basophils % (Manual) Nucleated RBC % Seg Neutrophils # Seg Neutrophils # Man Lymphocytes # (Manual) Monocytes # (Manual) Eosinophils # (Manual) Basophils # (Manual) PT INR Fibrinogen dRVVT Confirm Interp Factor V Activity POC ABG pH POC ABG pCO2 POC ABG pO2 ABG pO2 ABG HCO3 ABG Base Excess ABG Hemoglobin Oxyhemoglobin Sodium Potassium 3.1 L Chloride Carbon Dioxide BUN 73 H Creatinine 2.3 H Glucose 112 H POC Glucose 135 H 149 H Lactic Acid Calcium Phosphorus Magnesium Direct Bilirubin AST ALT Alkaline Phosphatase Lactate Dehydrogenase Troponin T C-Reactive Protein Total Protein Albumin Prealbumin Triglycerides Cholesterol LDL Cholesterol Direct HDL Cholesterol PTH Intact Urine pH Urine WBC (Auto) Urine Creatinine Urine Total Protein Fluid Total Protein Vancomycin Trough Rheumatoid Factor Complement C4 Miscellaneous Test Crossmatch 11/02/16 11/02/16 11/03/16 17:42 22:54 06:00 WBC RBC Hgb Hct MCV MCH MCHC RDW Plt Count Lymph % (Auto) [place] % (Auto) Lymph # [place] # Baso # Seg Neutrophils % Seg Neuts % (Manual) Lymphocytes % (Manual) Monocytes % (Manual) Eosinophils % (Manual) Basophils % (Manual) Nucleated RBC % Seg Neutrophils # Seg Neutrophils # Man Lymphocytes # (Manual) Monocytes # (Manual) Eosinophils # (Manual) Basophils # (Manual) PT INR Fibrinogen dRVVT Confirm Interp Factor V Activity POC ABG pH POC ABG pCO2 POC ABG pO2 ABG pO2 ABG HCO3 ABG Base Excess ABG Hemoglobin Oxyhemoglobin Sodium Potassium Chloride 96.7 L Carbon Dioxide BUN 41 H Creatinine 1.5 H Glucose 145 H POC Glucose 182 H 115 H Lactic Acid Calcium Phosphorus 1.60 L D Magnesium 1.50 L Direct Bilirubin AST ALT Alkaline Phosphatase Lactate Dehydrogenase Troponin T C-Reactive Protein Total Protein Albumin Prealbumin Triglycerides Cholesterol LDL Cholesterol Direct HDL Cholesterol PTH Intact Urine pH Urine WBC (Auto) Urine Creatinine Urine Total Protein Fluid Total Protein Vancomycin Trough Rheumatoid Factor Complement C4 Miscellaneous Test Crossmatch 11/03/16 11/03/16 11/03/16 11:53 17:45 23:37 WBC RBC Hgb Hct MCV MCH MCHC RDW Plt Count Lymph % (Auto) [place] % (Auto) Lymph # [place] # Baso # Seg Neutrophils % Seg Neuts % (Manual) Lymphocytes % (Manual) Monocytes % (Manual) Eosinophils % (Manual) Basophils % (Manual) Nucleated RBC % Seg Neutrophils # Seg Neutrophils # Man Lymphocytes # (Manual) Monocytes # (Manual) Eosinophils # (Manual) Basophils # (Manual) PT INR Fibrinogen dRVVT Confirm Interp Factor V Activity POC ABG pH POC ABG pCO2 POC ABG pO2 ABG pO2 ABG HCO3 ABG Base Excess ABG Hemoglobin Oxyhemoglobin Sodium Potassium Chloride Carbon Dioxide BUN Creatinine Glucose POC Glucose 131 H 134 H 113 H Lactic Acid Calcium Phosphorus Magnesium Direct Bilirubin AST ALT Alkaline Phosphatase Lactate Dehydrogenase Troponin T C-Reactive Protein Total Protein Albumin Prealbumin Triglycerides Cholesterol LDL Cholesterol Direct HDL Cholesterol PTH Intact Urine pH Urine WBC (Auto) Urine Creatinine Urine Total Protein Fluid Total Protein Vancomycin Trough Rheumatoid Factor Complement C4 Miscellaneous Test Crossmatch 11/04/16 11/04/16 11/04/16 05:41 06:00 12:10 WBC RBC Hgb Hct MCV MCH MCHC RDW Plt Count Lymph % (Auto) [place] % (Auto) Lymph # [place] # Baso # Seg Neutrophils % Seg Neuts % (Manual) Lymphocytes % (Manual) Monocytes % (Manual) Eosinophils % (Manual) Basophils % (Manual) Nucleated RBC % Seg Neutrophils # Seg Neutrophils # Man Lymphocytes # (Manual) Monocytes # (Manual) Eosinophils # (Manual) Basophils # (Manual) PT INR Fibrinogen dRVVT Confirm Interp Factor V Activity POC ABG pH POC ABG pCO2 POC ABG pO2 ABG pO2 ABG HCO3 ABG Base Excess ABG Hemoglobin Oxyhemoglobin Sodium Potassium Chloride 96.7 L Carbon Dioxide BUN 52 H Creatinine 1.9 H Glucose 126 H POC Glucose 137 H 191 H Lactic Acid Calcium Phosphorus Magnesium Direct Bilirubin AST ALT Alkaline Phosphatase Lactate Dehydrogenase Troponin T C-Reactive Protein Total Protein Albumin Prealbumin Triglycerides Cholesterol LDL Cholesterol Direct HDL Cholesterol PTH Intact Urine pH Urine WBC (Auto) Urine Creatinine Urine Total Protein Fluid Total Protein Vancomycin Trough Rheumatoid Factor Complement C4 Miscellaneous Test Crossmatch 11/04/16 11/05/16 11/05/16 22:57 03:10 05:10 WBC RBC Hgb Hct MCV MCH MCHC RDW Plt Count Lymph % (Auto) [place] % (Auto) Lymph # [place] # Baso # Seg Neutrophils % Seg Neuts % (Manual) Lymphocytes % (Manual) Monocytes % (Manual) Eosinophils % (Manual) Basophils % (Manual) Nucleated RBC % Seg Neutrophils # Seg Neutrophils # Man Lymphocytes # (Manual) Monocytes # (Manual) Eosinophils # (Manual) Basophils # (Manual) PT INR Fibrinogen dRVVT Confirm Interp Factor V Activity POC ABG pH POC ABG pCO2 POC ABG pO2 ABG pO2 ABG HCO3 ABG Base Excess ABG Hemoglobin Oxyhemoglobin Sodium 136 L Potassium Chloride 97.2 L Carbon Dioxide BUN 32 H Creatinine 1.3 H Glucose 123 H POC Glucose 125 H 108 H Lactic Acid Calcium 7.8 L Phosphorus Magnesium Direct Bilirubin AST ALT Alkaline Phosphatase Lactate Dehydrogenase Troponin T C-Reactive Protein Total Protein Albumin Prealbumin Triglycerides Cholesterol LDL Cholesterol Direct HDL Cholesterol PTH Intact Urine pH Urine WBC (Auto) Urine Creatinine Urine Total Protein Fluid Total Protein Vancomycin Trough Rheumatoid Factor Complement C4 Miscellaneous Test Crossmatch 11/05/16 11/05/16 11/05/16 12:23 13:09 13:25 WBC RBC Hgb Hct MCV MCH MCHC RDW Plt Count Lymph % (Auto) [place] % (Auto) Lymph # [place] # Baso # Seg Neutrophils % Seg Neuts % (Manual) Lymphocytes % (Manual) Monocytes % (Manual) Eosinophils % (Manual) Basophils % (Manual) Nucleated RBC % Seg Neutrophils # Seg Neutrophils # Man Lymphocytes # (Manual) Monocytes # (Manual) Eosinophils # (Manual) Basophils # (Manual) PT INR Fibrinogen dRVVT Confirm Interp Factor V Activity POC ABG pH POC ABG pCO2 POC ABG pO2 ABG pO2 ABG HCO3 ABG Base Excess ABG Hemoglobin Oxyhemoglobin Sodium Potassium Chloride Carbon Dioxide BUN Creatinine Glucose POC Glucose 124 H Lactic Acid Calcium Phosphorus Magnesium Direct Bilirubin AST ALT Alkaline Phosphatase Lactate Dehydrogenase Troponin T C-Reactive Protein 11.40 H Total Protein Albumin Prealbumin Triglycerides Cholesterol LDL Cholesterol Direct HDL Cholesterol PTH Intact Urine pH 9.0 H Urine WBC (Auto) Urine Creatinine Urine Total Protein Fluid Total Protein Vancomycin Trough Rheumatoid Factor Complement C4 Miscellaneous Test Crossmatch 11/05/16 11/05/16 11/05/16 13:25 17:54 23:42 WBC RBC Hgb Hct MCV MCH MCHC RDW Plt Count Lymph % (Auto) [place] % (Auto) Lymph # [place] # Baso # Seg Neutrophils % Seg Neuts % (Manual) Lymphocytes % (Manual) Monocytes % (Manual) Eosinophils % (Manual) Basophils % (Manual) Nucleated RBC % Seg Neutrophils # Seg Neutrophils # Man Lymphocytes # (Manual) Monocytes # (Manual) Eosinophils # (Manual) Basophils # (Manual) PT INR Fibrinogen dRVVT Confirm Interp Factor V Activity POC ABG pH POC ABG pCO2 POC ABG pO2 ABG pO2 ABG HCO3 ABG Base Excess ABG Hemoglobin Oxyhemoglobin Sodium Potassium Chloride Carbon Dioxide BUN Creatinine Glucose POC Glucose 114 H 134 H Lactic Acid Calcium Phosphorus Magnesium Direct Bilirubin AST ALT Alkaline Phosphatase Lactate Dehydrogenase Troponin T C-Reactive Protein Total Protein Albumin Prealbumin Triglycerides Cholesterol LDL Cholesterol Direct HDL Cholesterol PTH Intact Urine pH Urine WBC (Auto) Urine Creatinine Urine Total Protein Fluid Total Protein Vancomycin Trough Rheumatoid Factor Complement C4 Miscellaneous Test Flexitest 1 H Crossmatch 11/06/16 11/06/16 11/06/16 04:56 06:25 06:25 WBC RBC 2.50 L Hgb 7.3 L Hct 22.5 L MCV MCH MCHC RDW 16.9 H Plt Count Lymph % (Auto) [place] % (Auto) 10.5 H Lymph # [place] # 1.1 H Baso # Seg Neutrophils % Seg Neuts % (Manual) Lymphocytes % (Manual) Monocytes % (Manual) Eosinophils % (Manual) Basophils % (Manual) Nucleated RBC % Seg Neutrophils # Seg Neutrophils # Man Lymphocytes # (Manual) Monocytes # (Manual) Eosinophils # (Manual) Basophils # (Manual) PT INR Fibrinogen dRVVT Confirm Interp Factor V Activity POC ABG pH POC ABG pCO2 POC ABG pO2 ABG pO2 ABG HCO3 ABG Base Excess ABG Hemoglobin Oxyhemoglobin Sodium Potassium 5.1 H Chloride 95.9 L Carbon Dioxide BUN 52 H Creatinine 1.8 H Glucose 117 H POC Glucose 120 H Lactic Acid Calcium Phosphorus Magnesium Direct Bilirubin AST 103 H ALT 77 H Alkaline Phosphatase 285 H Lactate Dehydrogenase Troponin T C-Reactive Protein Total Protein 6.2 L Albumin 1.8 L Prealbumin 0.180 L Triglycerides Cholesterol LDL Cholesterol Direct HDL Cholesterol PTH Intact Urine pH Urine WBC (Auto) Urine Creatinine Urine Total Protein Fluid Total Protein Vancomycin Trough Rheumatoid Factor Complement C4 Miscellaneous Test Crossmatch 11/06/16 11/06/16 11/06/16 11:56 17:14 23:52 WBC RBC Hgb Hct MCV MCH MCHC RDW Plt Count Lymph % (Auto) [place] % (Auto) Lymph # [place] # Baso # Seg Neutrophils % Seg Neuts % (Manual) Lymphocytes % (Manual) Monocytes % (Manual) Eosinophils % (Manual) Basophils % (Manual) Nucleated RBC % Seg Neutrophils # Seg Neutrophils # Man Lymphocytes # (Manual) Monocytes # (Manual) Eosinophils # (Manual) Basophils # (Manual) PT INR Fibrinogen dRVVT Confirm Interp Factor V Activity POC ABG pH POC ABG pCO2 POC ABG pO2 ABG pO2 ABG HCO3 ABG Base Excess ABG Hemoglobin Oxyhemoglobin Sodium Potassium Chloride Carbon Dioxide BUN Creatinine Glucose POC Glucose 141 H 125 H 130 H Lactic Acid Calcium Phosphorus Magnesium Direct Bilirubin AST ALT Alkaline Phosphatase Lactate Dehydrogenase Troponin T C-Reactive Protein Total Protein Albumin Prealbumin Triglycerides Cholesterol LDL Cholesterol Direct HDL Cholesterol PTH Intact Urine pH Urine WBC (Auto) Urine Creatinine Urine Total Protein Fluid Total Protein Vancomycin Trough Rheumatoid Factor Complement C4 Miscellaneous Test Crossmatch 11/07/16 11/07/16 11/07/16 06:30 06:30 09:37 WBC RBC 2.18 L Hgb 6.3 L Hct 19.7 L* MCV MCH MCHC RDW 16.8 H Plt Count Lymph % (Auto) [place] % (Auto) 10.0 H Lymph # [place] # 1.0 H Baso # Seg Neutrophils % Seg Neuts % (Manual) Lymphocytes % (Manual) Monocytes % (Manual) Eosinophils % (Manual) Basophils % (Manual) Nucleated RBC % Seg Neutrophils # Seg Neutrophils # Man Lymphocytes # (Manual) Monocytes # (Manual) Eosinophils # (Manual) Basophils # (Manual) PT INR Fibrinogen dRVVT Confirm Interp Factor V Activity POC ABG pH POC ABG pCO2 POC ABG pO2 ABG pO2 ABG HCO3 ABG Base Excess ABG Hemoglobin Oxyhemoglobin Sodium 135 L Potassium Chloride 95.6 L Carbon Dioxide BUN 70 H Creatinine 2.0 H Glucose 126 H POC Glucose Lactic Acid Calcium Phosphorus Magnesium Direct Bilirubin AST ALT Alkaline Phosphatase Lactate Dehydrogenase Troponin T C-Reactive Protein Total Protein Albumin Prealbumin Triglycerides Cholesterol LDL Cholesterol Direct HDL Cholesterol PTH Intact Urine pH Urine WBC (Auto) Urine Creatinine Urine Total Protein Fluid Total Protein Vancomycin Trough Rheumatoid Factor Complement C4 Miscellaneous Test Crossmatch See Detail 11/07/16 11/07/16 11/07/16 12:52 18:51 21:26 WBC RBC Hgb Hct MCV MCH MCHC RDW Plt Count Lymph % (Auto) [place] % (Auto) Lymph # [place] # Baso # Seg Neutrophils % Seg Neuts % (Manual) Lymphocytes % (Manual) Monocytes % (Manual) Eosinophils % (Manual) Basophils % (Manual) Nucleated RBC % Seg Neutrophils # Seg Neutrophils # Man Lymphocytes # (Manual) Monocytes # (Manual) Eosinophils # (Manual) Basophils # (Manual) PT INR Fibrinogen dRVVT Confirm Interp Factor V Activity POC ABG pH 7.523 H POC ABG pCO2 34.6 L POC ABG pO2 53 L ABG pO2 ABG HCO3 ABG Base Excess ABG Hemoglobin Oxyhemoglobin Sodium Potassium Chloride Carbon Dioxide BUN Creatinine Glucose POC Glucose 142 H 155 H Lactic Acid Calcium Phosphorus Magnesium Direct Bilirubin AST ALT Alkaline Phosphatase Lactate Dehydrogenase Troponin T C-Reactive Protein Total Protein Albumin Prealbumin Triglycerides Cholesterol LDL Cholesterol Direct HDL Cholesterol PTH Intact Urine pH Urine WBC (Auto) Urine Creatinine Urine Total Protein Fluid Total Protein Vancomycin Trough Rheumatoid Factor Complement C4 Miscellaneous Test Crossmatch 11/07/16 11/08/16 11/08/16 21:34 13:03 23:37 WBC RBC 2.63 L Hgb 7.7 L Hct 22.7 L MCV MCH MCHC RDW 17.0 H Plt Count Lymph % (Auto) [place] % (Auto) Lymph # [place] # Baso # Seg Neutrophils % Seg Neuts % (Manual) Lymphocytes % (Manual) Monocytes % (Manual) Eosinophils % (Manual) Basophils % (Manual) Nucleated RBC % Seg Neutrophils # Seg Neutrophils # Man Lymphocytes # (Manual) Monocytes # (Manual) Eosinophils # (Manual) Basophils # (Manual) PT INR Fibrinogen dRVVT Confirm Interp Factor V Activity POC ABG pH 7.478 H POC ABG pCO2 34.0 L POC ABG pO2 50 L ABG pO2 ABG HCO3 ABG Base Excess ABG Hemoglobin Oxyhemoglobin Sodium Potassium Chloride Carbon Dioxide BUN Creatinine Glucose POC Glucose 113 H Lactic Acid Calcium Phosphorus Magnesium Direct Bilirubin AST ALT Alkaline Phosphatase Lactate Dehydrogenase Troponin T C-Reactive Protein Total Protein Albumin Prealbumin Triglycerides Cholesterol LDL Cholesterol Direct HDL Cholesterol PTH Intact Urine pH Urine WBC (Auto) Urine Creatinine Urine Total Protein Fluid Total Protein Vancomycin Trough Rheumatoid Factor Complement C4 Miscellaneous Test Crossmatch 11/09/16 11/09/16 11/09/16 04:35 10:15 18:21 WBC RBC 2.68 L Hgb 7.8 L Hct 23.3 L MCV MCH MCHC RDW 17.0 H Plt Count Lymph % (Auto) [place] % (Auto) 12.1 H Lymph # [place] # 1.1 H Baso # Seg Neutrophils % Seg Neuts % (Manual) Lymphocytes % (Manual) Monocytes % (Manual) Eosinophils % (Manual) Basophils % (Manual) Nucleated RBC % Seg Neutrophils # Seg Neutrophils # Man Lymphocytes # (Manual) Monocytes # (Manual) Eosinophils # (Manual) Basophils # (Manual) PT INR Fibrinogen dRVVT Confirm Interp Factor V Activity POC ABG pH POC ABG pCO2 POC ABG pO2 ABG pO2 ABG HCO3 ABG Base Excess ABG Hemoglobin Oxyhemoglobin Sodium Potassium Chloride Carbon Dioxide BUN 51 H Creatinine 1.8 H Glucose POC Glucose 60 L Lactic Acid Calcium 8.3 L Phosphorus Magnesium Direct Bilirubin AST ALT Alkaline Phosphatase Lactate Dehydrogenase Troponin T C-Reactive Protein Total Protein Albumin Prealbumin Triglycerides Cholesterol LDL Cholesterol Direct HDL Cholesterol PTH Intact Urine pH Urine WBC (Auto) Urine Creatinine Urine Total Protein Fluid Total Protein Vancomycin Trough Rheumatoid Factor Complement C4 Miscellaneous Test Crossmatch 11/09/16 11/10/16 11/10/16 18:55 07:00 11:51 WBC RBC Hgb Hct MCV MCH MCHC RDW Plt Count Lymph % (Auto) [place] % (Auto) Lymph # [place] # Baso # Seg Neutrophils % Seg Neuts % (Manual) Lymphocytes % (Manual) Monocytes % (Manual) Eosinophils % (Manual) Basophils % (Manual) Nucleated RBC % Seg Neutrophils # Seg Neutrophils # Man Lymphocytes # (Manual) Monocytes # (Manual) Eosinophils # (Manual) Basophils # (Manual) PT INR Fibrinogen dRVVT Confirm Interp Factor V Activity POC ABG pH POC ABG pCO2 POC ABG pO2 ABG pO2 ABG HCO3 ABG Base Excess ABG Hemoglobin Oxyhemoglobin Sodium Potassium 3.0 L D Chloride 97.4 L Carbon Dioxide BUN 28 H Creatinine 1.3 H Glucose POC Glucose 68 L 120 H Lactic Acid Calcium 7.8 L Phosphorus Magnesium Direct Bilirubin AST ALT Alkaline Phosphatase Lactate Dehydrogenase Troponin T C-Reactive Protein Total Protein Albumin Prealbumin Triglycerides Cholesterol LDL Cholesterol Direct HDL Cholesterol PTH Intact Urine pH Urine WBC (Auto) Urine Creatinine Urine Total Protein Fluid Total Protein Vancomycin Trough Rheumatoid Factor Complement C4 Miscellaneous Test Crossmatch 11/10/16 11/11/16 11/11/16 14:20 06:59 06:59 WBC RBC 2.81 L Hgb 8.1 L Hct 24.4 L MCV MCH MCHC RDW 16.4 H Plt Count Lymph % (Auto) [place] % (Auto) 10.8 H Lymph # [place] # 1.0 H Baso # Seg Neutrophils % Seg Neuts % (Manual) Lymphocytes % (Manual) Monocytes % (Manual) Eosinophils % (Manual) Basophils % (Manual) Nucleated RBC % Seg Neutrophils # Seg Neutrophils # Man Lymphocytes # (Manual) Monocytes # (Manual) Eosinophils # (Manual) Basophils # (Manual) PT INR Fibrinogen dRVVT Confirm Interp Factor V Activity POC ABG pH POC ABG pCO2 POC ABG pO2 ABG pO2 ABG HCO3 ABG Base Excess ABG Hemoglobin Oxyhemoglobin Sodium Potassium Chloride Carbon Dioxide BUN Creatinine Glucose POC Glucose Lactic Acid Calcium Phosphorus Magnesium Direct Bilirubin AST ALT Alkaline Phosphatase Lactate Dehydrogenase 196 H Troponin T C-Reactive Protein Total Protein 6.1 L Albumin Prealbumin Triglycerides Cholesterol LDL Cholesterol Direct HDL Cholesterol PTH Intact Urine pH Urine WBC (Auto) Urine Creatinine Urine Total Protein Fluid Total Protein < 3.0 L Vancomycin Trough Rheumatoid Factor Complement C4 Miscellaneous Test Crossmatch 11/11/16 11/11/16 11/12/16 06:59 09:50 04:00 WBC RBC Hgb Hct MCV MCH MCHC RDW Plt Count Lymph % (Auto) [place] % (Auto) Lymph # [place] # Baso # Seg Neutrophils % Seg Neuts % (Manual) Lymphocytes % (Manual) Monocytes % (Manual) Eosinophils % (Manual) Basophils % (Manual) Nucleated RBC % Seg Neutrophils # Seg Neutrophils # Man Lymphocytes # (Manual) Monocytes # (Manual) Eosinophils # (Manual) Basophils # (Manual) PT INR 1.18 H Fibrinogen dRVVT Confirm Interp Factor V Activity POC ABG pH POC ABG pCO2 POC ABG pO2 ABG pO2 ABG HCO3 ABG Base Excess ABG Hemoglobin Oxyhemoglobin Sodium 136 L 133 L Potassium Chloride 96.1 L 94.8 L Carbon Dioxide 21 L BUN 37 H 42 H Creatinine 1.8 H 2.0 H Glucose POC Glucose Lactic Acid Calcium Phosphorus Magnesium Direct Bilirubin AST ALT Alkaline Phosphatase Lactate Dehydrogenase Troponin T C-Reactive Protein Total Protein Albumin Prealbumin Triglycerides Cholesterol LDL Cholesterol Direct HDL Cholesterol PTH Intact Urine pH Urine WBC (Auto) Urine Creatinine Urine Total Protein Fluid Total Protein Vancomycin Trough Rheumatoid Factor Complement C4 Miscellaneous Test Crossmatch 11/12/16 11/12/16 11/13/16 04:00 23:55 05:53 WBC RBC Hgb 8.9 L Hct 27.2 L MCV MCH MCHC RDW Plt Count Lymph % (Auto) [place] % (Auto) Lymph # [place] # Baso # Seg Neutrophils % Seg Neuts % (Manual) Lymphocytes % (Manual) Monocytes % (Manual) Eosinophils % (Manual) Basophils % (Manual) Nucleated RBC % Seg Neutrophils # Seg Neutrophils # Man Lymphocytes # (Manual) Monocytes # (Manual) Eosinophils # (Manual) Basophils # (Manual) PT INR Fibrinogen dRVVT Confirm Interp Factor V Activity POC ABG pH POC ABG pCO2 POC ABG pO2 ABG pO2 ABG HCO3 ABG Base Excess ABG Hemoglobin Oxyhemoglobin Sodium Potassium Chloride Carbon Dioxide BUN Creatinine Glucose POC Glucose 132 H 120 H Lactic Acid Calcium Phosphorus Magnesium Direct Bilirubin AST ALT Alkaline Phosphatase Lactate Dehydrogenase Troponin T C-Reactive Protein Total Protein Albumin Prealbumin Triglycerides Cholesterol LDL Cholesterol Direct HDL Cholesterol PTH Intact Urine pH Urine WBC (Auto) Urine Creatinine Urine Total Protein Fluid Total Protein Vancomycin Trough Rheumatoid Factor Complement C4 Miscellaneous Test Crossmatch 11/13/16 11/13/16 11/13/16 11:43 17:09 23:41 WBC RBC Hgb Hct MCV MCH MCHC RDW Plt Count Lymph % (Auto) [place] % (Auto) Lymph # [place] # Baso # Seg Neutrophils % Seg Neuts % (Manual) Lymphocytes % (Manual) Monocytes % (Manual) Eosinophils % (Manual) Basophils % (Manual) Nucleated RBC % Seg Neutrophils # Seg Neutrophils # Man Lymphocytes # (Manual) Monocytes # (Manual) Eosinophils # (Manual) Basophils # (Manual) PT INR Fibrinogen dRVVT Confirm Interp Factor V Activity POC ABG pH POC ABG pCO2 POC ABG pO2 ABG pO2 ABG HCO3 ABG Base Excess ABG Hemoglobin Oxyhemoglobin Sodium Potassium Chloride Carbon Dioxide BUN Creatinine Glucose POC Glucose 114 H 113 H 108 H Lactic Acid Calcium Phosphorus Magnesium Direct Bilirubin AST ALT Alkaline Phosphatase Lactate Dehydrogenase Troponin T C-Reactive Protein Total Protein Albumin Prealbumin Triglycerides Cholesterol LDL Cholesterol Direct HDL Cholesterol PTH Intact Urine pH Urine WBC (Auto) Urine Creatinine Urine Total Protein Fluid Total Protein Vancomycin Trough Rheumatoid Factor Complement C4 Miscellaneous Test Crossmatch 11/13/16 11/15/16 11/15/16 Unknown 00:37 03:30 WBC 11.2 H RBC 2.72 L Hgb 7.6 L Hct 23.4 L MCV MCH MCHC RDW 16.5 H Plt Count Lymph % (Auto) [place] % (Auto) Lymph # [place] # Baso # Seg Neutrophils % Seg Neuts % (Manual) Lymphocytes % (Manual) Monocytes % (Manual) Eosinophils % (Manual) Basophils % (Manual) Nucleated RBC % Seg Neutrophils # Seg Neutrophils # Man Lymphocytes # (Manual) Monocytes # (Manual) Eosinophils # (Manual) Basophils # (Manual) PT INR Fibrinogen dRVVT Confirm Interp Factor V Activity POC ABG pH POC ABG pCO2 POC ABG pO2 ABG pO2 ABG HCO3 ABG Base Excess ABG Hemoglobin Oxyhemoglobin Sodium 135 L Potassium Chloride 95.2 L Carbon Dioxide BUN 52 H Creatinine 2.2 H Glucose POC Glucose 108 H Lactic Acid Calcium Phosphorus Magnesium Direct Bilirubin AST ALT Alkaline Phosphatase Lactate Dehydrogenase Troponin T C-Reactive Protein Total Protein Albumin Prealbumin Triglycerides Cholesterol LDL Cholesterol Direct HDL Cholesterol PTH Intact Urine pH Urine WBC (Auto) Urine Creatinine Urine Total Protein Fluid Total Protein Vancomycin Trough Rheumatoid Factor Complement C4 Miscellaneous Test Crossmatch 11/15/16 11/15/16 11/15/16 03:30 05:04 11:50 WBC RBC Hgb Hct MCV MCH MCHC RDW Plt Count Lymph % (Auto) [place] % (Auto) Lymph # [place] # Baso # Seg Neutrophils % Seg Neuts % (Manual) Lymphocytes % (Manual) Monocytes % (Manual) Eosinophils % (Manual) Basophils % (Manual) Nucleated RBC % Seg Neutrophils # Seg Neutrophils # Man Lymphocytes # (Manual) Monocytes # (Manual) Eosinophils # (Manual) Basophils # (Manual) PT INR Fibrinogen dRVVT Confirm Interp Factor V Activity POC ABG pH POC ABG pCO2 POC ABG pO2 ABG pO2 ABG HCO3 ABG Base Excess ABG Hemoglobin Oxyhemoglobin Sodium Potassium 3.4 L Chloride Carbon Dioxide BUN 25 H Creatinine 1.5 H Glucose 103 H POC Glucose 121 H 144 H Lactic Acid Calcium Phosphorus Magnesium Direct Bilirubin AST ALT Alkaline Phosphatase Lactate Dehydrogenase Troponin T C-Reactive Protein Total Protein Albumin Prealbumin Triglycerides Cholesterol LDL Cholesterol Direct HDL Cholesterol PTH Intact Urine pH Urine WBC (Auto) Urine Creatinine Urine Total Protein Fluid Total Protein Vancomycin Trough Rheumatoid Factor Complement C4 Miscellaneous Test Crossmatch 11/15/16 11/15/16 11/16/16 21:28 23:20 11:44 WBC RBC Hgb Hct MCV MCH MCHC RDW Plt Count Lymph % (Auto) [place] % (Auto) Lymph # [place] # Baso # Seg Neutrophils % Seg Neuts % (Manual) Lymphocytes % (Manual) Monocytes % (Manual) Eosinophils % (Manual) Basophils % (Manual) Nucleated RBC % Seg Neutrophils # Seg Neutrophils # Man Lymphocytes # (Manual) Monocytes # (Manual) Eosinophils # (Manual) Basophils # (Manual) PT INR Fibrinogen dRVVT Confirm Interp Factor V Activity POC ABG pH 7.462 H POC ABG pCO2 POC ABG pO2 71 L ABG pO2 ABG HCO3 ABG Base Excess ABG Hemoglobin Oxyhemoglobin Sodium Potassium Chloride Carbon Dioxide BUN Creatinine Glucose POC Glucose 116 H 133 H Lactic Acid Calcium Phosphorus Magnesium Direct Bilirubin AST ALT Alkaline Phosphatase Lactate Dehydrogenase Troponin T C-Reactive Protein Total Protein Albumin Prealbumin Triglycerides Cholesterol LDL Cholesterol Direct HDL Cholesterol PTH Intact Urine pH Urine WBC (Auto) Urine Creatinine Urine Total Protein Fluid Total Protein Vancomycin Trough Rheumatoid Factor Complement C4 Miscellaneous Test Crossmatch 11/16/16 11/16/16 11/16/16 12:20 17:05 23:35 WBC 11.7 H RBC 2.73 L Hgb 7.6 L Hct 23.7 L MCV MCH MCHC RDW 16.6 H Plt Count Lymph % (Auto) [place] % (Auto) Lymph # [place] # Baso # Seg Neutrophils % Seg Neuts % (Manual) Lymphocytes % (Manual) Monocytes % (Manual) Eosinophils % (Manual) Basophils % (Manual) Nucleated RBC % Seg Neutrophils # Seg Neutrophils # Man Lymphocytes # (Manual) Monocytes # (Manual) Eosinophils # (Manual) Basophils # (Manual) PT INR Fibrinogen dRVVT Confirm Interp Factor V Activity POC ABG pH POC ABG pCO2 POC ABG pO2 ABG pO2 ABG HCO3 ABG Base Excess ABG Hemoglobin Oxyhemoglobin Sodium Potassium Chloride Carbon Dioxide BUN Creatinine Glucose POC Glucose 154 H 125 H Lactic Acid Calcium Phosphorus Magnesium Direct Bilirubin AST ALT Alkaline Phosphatase Lactate Dehydrogenase Troponin T C-Reactive Protein Total Protein Albumin Prealbumin Triglycerides Cholesterol LDL Cholesterol Direct HDL Cholesterol PTH Intact Urine pH Urine WBC (Auto) Urine Creatinine Urine Total Protein Fluid Total Protein Vancomycin Trough Rheumatoid Factor Complement C4 Miscellaneous Test Crossmatch 11/17/16 11/17/16 11/17/16 03:20 03:20 03:20 WBC RBC 2.55 L Hgb 7.3 L Hct 21.9 L MCV MCH MCHC RDW 16.6 H Plt Count Lymph % (Auto) [place] % (Auto) 11.5 H Lymph # [place] # 1.1 H Baso # Seg Neutrophils % Seg Neuts % (Manual) Lymphocytes % (Manual) Monocytes % (Manual) Eosinophils % (Manual) Basophils % (Manual) Nucleated RBC % Seg Neutrophils # Seg Neutrophils # Man Lymphocytes # (Manual) Monocytes # (Manual) Eosinophils # (Manual) Basophils # (Manual) PT 16.8 H INR 1.37 H Fibrinogen dRVVT Confirm Interp Factor V Activity POC ABG pH POC ABG pCO2 POC ABG pO2 ABG pO2 ABG HCO3 ABG Base Excess ABG Hemoglobin Oxyhemoglobin Sodium Potassium 3.5 L Chloride Carbon Dioxide BUN 21 H Creatinine Glucose POC Glucose Lactic Acid Calcium 7.9 L Phosphorus Magnesium Direct Bilirubin AST ALT Alkaline Phosphatase Lactate Dehydrogenase Troponin T C-Reactive Protein Total Protein Albumin Prealbumin Triglycerides Cholesterol LDL Cholesterol Direct HDL Cholesterol PTH Intact Urine pH Urine WBC (Auto) Urine Creatinine Urine Total Protein Fluid Total Protein Vancomycin Trough Rheumatoid Factor Complement C4 Miscellaneous Test Crossmatch 11/17/16 11/17/16 11/17/16 06:34 11:21 21:22 WBC RBC Hgb Hct MCV MCH MCHC RDW Plt Count Lymph % (Auto) [place] % (Auto) Lymph # [place] # Baso # Seg Neutrophils % Seg Neuts % (Manual) Lymphocytes % (Manual) Monocytes % (Manual) Eosinophils % (Manual) Basophils % (Manual) Nucleated RBC % Seg Neutrophils # Seg Neutrophils # Man Lymphocytes # (Manual) Monocytes # (Manual) Eosinophils # (Manual) Basophils # (Manual) PT INR Fibrinogen dRVVT Confirm Interp Factor V Activity POC ABG pH 7.467 H POC ABG pCO2 POC ABG pO2 73 L ABG pO2 ABG HCO3 ABG Base Excess ABG Hemoglobin Oxyhemoglobin Sodium Potassium Chloride Carbon Dioxide BUN Creatinine Glucose POC Glucose 121 H 119 H Lactic Acid Calcium Phosphorus Magnesium Direct Bilirubin AST ALT Alkaline Phosphatase Lactate Dehydrogenase Troponin T C-Reactive Protein Total Protein Albumin Prealbumin Triglycerides Cholesterol LDL Cholesterol Direct HDL Cholesterol PTH Intact Urine pH Urine WBC (Auto) Urine Creatinine Urine Total Protein Fluid Total Protein Vancomycin Trough Rheumatoid Factor Complement C4 Miscellaneous Test Crossmatch 11/18/16 11/18/16 11/19/16 12:16 17:19 00:00 WBC RBC Hgb Hct MCV MCH MCHC RDW Plt Count Lymph % (Auto) [place] % (Auto) Lymph # [place] # Baso # Seg Neutrophils % Seg Neuts % (Manual) Lymphocytes % (Manual) Monocytes % (Manual) Eosinophils % (Manual) Basophils % (Manual) Nucleated RBC % Seg Neutrophils # Seg Neutrophils # Man Lymphocytes # (Manual) Monocytes # (Manual) Eosinophils # (Manual) Basophils # (Manual) PT INR Fibrinogen dRVVT Confirm Interp Factor V Activity POC ABG pH POC ABG pCO2 POC ABG pO2 ABG pO2 ABG HCO3 ABG Base Excess ABG Hemoglobin Oxyhemoglobin Sodium Potassium Chloride Carbon Dioxide BUN Creatinine Glucose POC Glucose 124 H 162 H 139 H Lactic Acid Calcium Phosphorus Magnesium Direct Bilirubin AST ALT Alkaline Phosphatase Lactate Dehydrogenase Troponin T C-Reactive Protein Total Protein Albumin Prealbumin Triglycerides Cholesterol LDL Cholesterol Direct HDL Cholesterol PTH Intact Urine pH Urine WBC (Auto) Urine Creatinine Urine Total Protein Fluid Total Protein Vancomycin Trough Rheumatoid Factor Complement C4 Miscellaneous Test Crossmatch 11/19/16 11/19/16 11/20/16 05:00 12:43 00:40 WBC RBC Hgb Hct MCV MCH MCHC RDW Plt Count Lymph % (Auto) [place] % (Auto) Lymph # [place] # Baso # Seg Neutrophils % Seg Neuts % (Manual) Lymphocytes % (Manual) Monocytes % (Manual) Eosinophils % (Manual) Basophils % (Manual) Nucleated RBC % Seg Neutrophils # Seg Neutrophils # Man Lymphocytes # (Manual) Monocytes # (Manual) Eosinophils # (Manual) Basophils # (Manual) PT INR Fibrinogen dRVVT Confirm Interp Factor V Activity POC ABG pH POC ABG pCO2 POC ABG pO2 ABG pO2 ABG HCO3 ABG Base Excess ABG Hemoglobin Oxyhemoglobin Sodium Potassium Chloride Carbon Dioxide BUN Creatinine Glucose POC Glucose 110 H 125 H 136 H Lactic Acid Calcium Phosphorus Magnesium Direct Bilirubin AST ALT Alkaline Phosphatase Lactate Dehydrogenase Troponin T C-Reactive Protein Total Protein Albumin Prealbumin Triglycerides Cholesterol LDL Cholesterol Direct HDL Cholesterol PTH Intact Urine pH Urine WBC (Auto) Urine Creatinine Urine Total Protein Fluid Total Protein Vancomycin Trough Rheumatoid Factor Complement C4 Miscellaneous Test Crossmatch 11/20/16 11/20/16 11/20/16 05:00 05:00 05:51 WBC 13.1 H RBC 2.74 L Hgb 7.7 L Hct 23.6 L MCV MCH MCHC RDW 16.9 H Plt Count Lymph % (Auto) [place] % (Auto) 10.8 H Lymph # [place] # 1.4 H Baso # Seg Neutrophils % Seg Neuts % (Manual) Lymphocytes % (Manual) Monocytes % (Manual) Eosinophils % (Manual) Basophils % (Manual) Nucleated RBC % Seg Neutrophils # 7.9 H Seg Neutrophils # Man Lymphocytes # (Manual) Monocytes # (Manual) Eosinophils # (Manual) Basophils # (Manual) PT INR Fibrinogen dRVVT Confirm Interp Factor V Activity POC ABG pH POC ABG pCO2 POC ABG pO2 ABG pO2 ABG HCO3 ABG Base Excess ABG Hemoglobin Oxyhemoglobin Sodium Potassium Chloride Carbon Dioxide BUN 31 H Creatinine 1.8 H Glucose 129 H POC Glucose 133 H Lactic Acid Calcium Phosphorus Magnesium Direct Bilirubin AST ALT Alkaline Phosphatase Lactate Dehydrogenase Troponin T C-Reactive Protein Total Protein Albumin Prealbumin Triglycerides Cholesterol LDL Cholesterol Direct HDL Cholesterol PTH Intact Urine pH Urine WBC (Auto) Urine Creatinine Urine Total Protein Fluid Total Protein Vancomycin Trough Rheumatoid Factor Complement C4 Miscellaneous Test Crossmatch 11/20/16 11/20/16 11/21/16 12:40 18:10 01:20 WBC RBC Hgb Hct MCV MCH MCHC RDW Plt Count Lymph % (Auto) [place] % (Auto) Lymph # [place] # Baso # Seg Neutrophils % Seg Neuts % (Manual) Lymphocytes % (Manual) Monocytes % (Manual) Eosinophils % (Manual) Basophils % (Manual) Nucleated RBC % Seg Neutrophils # Seg Neutrophils # Man Lymphocytes # (Manual) Monocytes # (Manual) Eosinophils # (Manual) Basophils # (Manual) PT INR Fibrinogen dRVVT Confirm Interp Factor V Activity POC ABG pH POC ABG pCO2 POC ABG pO2 ABG pO2 ABG HCO3 ABG Base Excess ABG Hemoglobin Oxyhemoglobin Sodium Potassium Chloride Carbon Dioxide BUN Creatinine Glucose POC Glucose 134 H 138 H 136 H Lactic Acid Calcium Phosphorus Magnesium Direct Bilirubin AST ALT Alkaline Phosphatase Lactate Dehydrogenase Troponin T C-Reactive Protein Total Protein Albumin Prealbumin Triglycerides Cholesterol LDL Cholesterol Direct HDL Cholesterol PTH Intact Urine pH Urine WBC (Auto) Urine Creatinine Urine Total Protein Fluid Total Protein Vancomycin Trough Rheumatoid Factor Complement C4 Miscellaneous Test Crossmatch 11/21/16 11/21/16 11/21/16 07:04 07:45 07:45 WBC 22.0 H RBC 2.91 L Hgb 8.2 L Hct 25.4 L MCV MCH MCHC RDW 17.1 H Plt Count Lymph % (Auto) [place] % (Auto) Lymph # [place] # Baso # Seg Neutrophils % Seg Neuts % (Manual) Lymphocytes % (Manual) 8.0 L Monocytes % (Manual) Eosinophils % (Manual) Basophils % (Manual) Nucleated RBC % Seg Neutrophils # Seg Neutrophils # Man 14.7 H Lymphocytes # (Manual) Monocytes # (Manual) 1.1 H Eosinophils # (Manual) Basophils # (Manual) PT INR Fibrinogen dRVVT Confirm Interp Factor V Activity POC ABG pH POC ABG pCO2 POC ABG pO2 ABG pO2 ABG HCO3 ABG Base Excess ABG Hemoglobin Oxyhemoglobin Sodium Potassium Chloride Carbon Dioxide BUN 42 H Creatinine 2.0 H Glucose POC Glucose 108 H Lactic Acid Calcium Phosphorus Magnesium Direct Bilirubin AST ALT Alkaline Phosphatase Lactate Dehydrogenase Troponin T C-Reactive Protein Total Protein Albumin Prealbumin Triglycerides Cholesterol LDL Cholesterol Direct HDL Cholesterol PTH Intact Urine pH Urine WBC (Auto) Urine Creatinine Urine Total Protein Fluid Total Protein Vancomycin Trough Rheumatoid Factor Complement C4 Miscellaneous Test Crossmatch 11/21/16 11/21/16 11/21/16 08:38 10:09 11:20 WBC RBC Hgb Hct MCV MCH MCHC RDW Plt Count Lymph % (Auto) [place] % (Auto) Lymph # [place] # Baso # Seg Neutrophils % Seg Neuts % (Manual) Lymphocytes % (Manual) Monocytes % (Manual) Eosinophils % (Manual) Basophils % (Manual) Nucleated RBC % Seg Neutrophils # Seg Neutrophils # Man Lymphocytes # (Manual) Monocytes # (Manual) Eosinophils # (Manual) Basophils # (Manual) PT INR Fibrinogen dRVVT Confirm Interp Factor V Activity POC ABG pH 7.346 L POC ABG pCO2 34.4 L POC ABG pO2 314 H ABG pO2 ABG HCO3 ABG Base Excess ABG Hemoglobin Oxyhemoglobin Sodium Potassium Chloride Carbon Dioxide BUN Creatinine Glucose POC Glucose 195 H 153 H Lactic Acid Calcium Phosphorus Magnesium Direct Bilirubin AST ALT Alkaline Phosphatase Lactate Dehydrogenase Troponin T C-Reactive Protein Total Protein Albumin Prealbumin Triglycerides Cholesterol LDL Cholesterol Direct HDL Cholesterol PTH Intact Urine pH Urine WBC (Auto) Urine Creatinine Urine Total Protein Fluid Total Protein Vancomycin Trough Rheumatoid Factor Complement C4 Miscellaneous Test Crossmatch 11/21/16 11/22/16 11/22/16 23:37 04:48 05:00 WBC 29.7 H RBC 2.73 L Hgb 7.5 L Hct 24.2 L MCV MCH 27 L MCHC RDW 17.4 H Plt Count Lymph % (Auto) [place] % (Auto) Lymph # [place] # Baso # Seg Neutrophils % Seg Neuts % (Manual) Lymphocytes % (Manual) 7.0 L Monocytes % (Manual) Eosinophils % (Manual) Basophils % (Manual) Nucleated RBC % Seg Neutrophils # Seg Neutrophils # Man 15.4 H Lymphocytes # (Manual) Monocytes # (Manual) Eosinophils # (Manual) Basophils # (Manual) PT INR Fibrinogen dRVVT Confirm Interp Factor V Activity POC ABG pH POC ABG pCO2 24.6 L POC ABG pO2 189 H ABG pO2 ABG HCO3 ABG Base Excess ABG Hemoglobin Oxyhemoglobin Sodium Potassium Chloride Carbon Dioxide BUN Creatinine Glucose POC Glucose 65 L Lactic Acid Calcium Phosphorus Magnesium Direct Bilirubin AST ALT Alkaline Phosphatase Lactate Dehydrogenase Troponin T C-Reactive Protein Total Protein Albumin Prealbumin Triglycerides Cholesterol LDL Cholesterol Direct HDL Cholesterol PTH Intact Urine pH Urine WBC (Auto) Urine Creatinine Urine Total Protein Fluid Total Protein Vancomycin Trough Rheumatoid Factor Complement C4 Miscellaneous Test Crossmatch 11/22/16 11/23/16 11/23/16 05:00 03:44 04:06 WBC RBC 2.52 L Hgb 7.2 L Hct 21.5 L MCV MCH MCHC RDW 17.1 H Plt Count Lymph % (Auto) [place] % (Auto) 12.4 H Lymph # [place] # 1.4 H Baso # Seg Neutrophils % Seg Neuts % (Manual) Lymphocytes % (Manual) Monocytes % (Manual) Eosinophils % (Manual) Basophils % (Manual) Nucleated RBC % Seg Neutrophils # Seg Neutrophils # Man Lymphocytes # (Manual) Monocytes # (Manual) Eosinophils # (Manual) Basophils # (Manual) PT INR Fibrinogen dRVVT Confirm Interp Factor V Activity POC ABG pH 7.493 H POC ABG pCO2 29.5 L POC ABG pO2 49 L ABG pO2 ABG HCO3 ABG Base Excess ABG Hemoglobin Oxyhemoglobin Sodium 134 L Potassium Chloride 95.9 L Carbon Dioxide 14 L D BUN 51 H Creatinine 2.6 H Glucose POC Glucose Lactic Acid Calcium Phosphorus Magnesium Direct Bilirubin AST ALT Alkaline Phosphatase Lactate Dehydrogenase Troponin T C-Reactive Protein Total Protein Albumin Prealbumin Triglycerides Cholesterol LDL Cholesterol Direct HDL Cholesterol PTH Intact Urine pH Urine WBC (Auto) Urine Creatinine Urine Total Protein Fluid Total Protein Vancomycin Trough Rheumatoid Factor Complement C4 Miscellaneous Test Crossmatch 11/23/16 11/23/16 11/24/16 04:06 11:29 06:39 WBC RBC Hgb Hct MCV MCH MCHC RDW Plt Count Lymph % (Auto) [place] % (Auto) Lymph # [place] # Baso # Seg Neutrophils % Seg Neuts % (Manual) Lymphocytes % (Manual) Monocytes % (Manual) Eosinophils % (Manual) Basophils % (Manual) Nucleated RBC % Seg Neutrophils # Seg Neutrophils # Man Lymphocytes # (Manual) Monocytes # (Manual) Eosinophils # (Manual) Basophils # (Manual) PT INR Fibrinogen dRVVT Confirm Interp Factor V Activity POC ABG pH POC ABG pCO2 POC ABG pO2 ABG pO2 ABG HCO3 ABG Base Excess ABG Hemoglobin Oxyhemoglobin Sodium 136 L Potassium Chloride 95.2 L Carbon Dioxide BUN 60 H Creatinine 2.9 H Glucose POC Glucose 69 L 305 H Lactic Acid Calcium Phosphorus Magnesium 1.60 L Direct Bilirubin AST ALT Alkaline Phosphatase Lactate Dehydrogenase Troponin T C-Reactive Protein Total Protein Albumin Prealbumin Triglycerides Cholesterol LDL Cholesterol Direct HDL Cholesterol PTH Intact Urine pH Urine WBC (Auto) Urine Creatinine Urine Total Protein Fluid Total Protein Vancomycin Trough Rheumatoid Factor Complement C4 Miscellaneous Test Crossmatch 11/24/16 11/24/16 11/24/16 06:43 08:08 08:08 WBC 11.2 H RBC 2.47 L Hgb 6.8 L Hct 20.6 L MCV MCH MCHC RDW 17.0 H Plt Count Lymph % (Auto) [place] % (Auto) 10.3 H Lymph # [place] # 1.2 H Baso # Seg Neutrophils % Seg Neuts % (Manual) Lymphocytes % (Manual) Monocytes % (Manual) Eosinophils % (Manual) Basophils % (Manual) Nucleated RBC % Seg Neutrophils # Seg Neutrophils # Man Lymphocytes # (Manual) Monocytes # (Manual) Eosinophils # (Manual) Basophils # (Manual) PT INR Fibrinogen dRVVT Confirm Interp Factor V Activity POC ABG pH POC ABG pCO2 POC ABG pO2 ABG pO2 ABG HCO3 ABG Base Excess ABG Hemoglobin Oxyhemoglobin Sodium 135 L Potassium Chloride 96.3 L Carbon Dioxide BUN 61 H Creatinine 3.1 H Glucose POC Glucose 62 L Lactic Acid Calcium 8.2 L Phosphorus Magnesium Direct Bilirubin AST ALT Alkaline Phosphatase Lactate Dehydrogenase Troponin T C-Reactive Protein Total Protein Albumin Prealbumin Triglycerides Cholesterol LDL Cholesterol Direct HDL Cholesterol PTH Intact Urine pH Urine WBC (Auto) Urine Creatinine Urine Total Protein Fluid Total Protein Vancomycin Trough Rheumatoid Factor Complement C4 Miscellaneous Test Crossmatch 11/24/16 11/24/16 11/24/16 08:34 11:20 12:41 WBC RBC Hgb Hct MCV MCH MCHC RDW Plt Count Lymph % (Auto) [place] % (Auto) Lymph # [place] # Baso # Seg Neutrophils % Seg Neuts % (Manual) Lymphocytes % (Manual) Monocytes % (Manual) Eosinophils % (Manual) Basophils % (Manual) Nucleated RBC % Seg Neutrophils # Seg Neutrophils # Man Lymphocytes # (Manual) Monocytes # (Manual) Eosinophils # (Manual) Basophils # (Manual) PT INR Fibrinogen dRVVT Confirm Interp Factor V Activity POC ABG pH POC ABG pCO2 POC ABG pO2 ABG pO2 ABG HCO3 ABG Base Excess ABG Hemoglobin Oxyhemoglobin Sodium Potassium Chloride Carbon Dioxide BUN Creatinine Glucose POC Glucose 108 H Lactic Acid Calcium Phosphorus Magnesium 1.60 L Direct Bilirubin AST ALT Alkaline Phosphatase Lactate Dehydrogenase Troponin T C-Reactive Protein Total Protein Albumin Prealbumin Triglycerides Cholesterol LDL Cholesterol Direct HDL Cholesterol PTH Intact Urine pH Urine WBC (Auto) Urine Creatinine Urine Total Protein Fluid Total Protein Vancomycin Trough Rheumatoid Factor Complement C4 Miscellaneous Test Crossmatch See Detail 11/25/16 11/25/16 11/25/16 00:03 04:42 04:42 WBC RBC 3.03 L Hgb 8.6 L Hct 25.3 L MCV MCH MCHC RDW 16.2 H Plt Count Lymph % (Auto) [place] % (Auto) 8.1 H Lymph # [place] # Baso # Seg Neutrophils % 71.3 H Seg Neuts % (Manual) Lymphocytes % (Manual) Monocytes % (Manual) Eosinophils % (Manual) Basophils % (Manual) Nucleated RBC % Seg Neutrophils # Seg Neutrophils # Man Lymphocytes # (Manual) Monocytes # (Manual) Eosinophils # (Manual) Basophils # (Manual) PT INR Fibrinogen dRVVT Confirm Interp Factor V Activity POC ABG pH POC ABG pCO2 POC ABG pO2 ABG pO2 ABG HCO3 ABG Base Excess ABG Hemoglobin Oxyhemoglobin Sodium Potassium Chloride Carbon Dioxide BUN 61 H Creatinine 3.0 H Glucose 102 H POC Glucose 113 H Lactic Acid Calcium 8.2 L Phosphorus Magnesium Direct Bilirubin AST ALT Alkaline Phosphatase 142 H Lactate Dehydrogenase Troponin T C-Reactive Protein Total Protein 5.7 L Albumin 1.5 L Prealbumin Triglycerides Cholesterol LDL Cholesterol Direct HDL Cholesterol PTH Intact Urine pH Urine WBC (Auto) Urine Creatinine Urine Total Protein Fluid Total Protein Vancomycin Trough Rheumatoid Factor Complement C4 Miscellaneous Test Crossmatch 11/25/16 11/25/16 11/25/16 05:12 11:31 14:12 WBC RBC Hgb Hct MCV MCH MCHC RDW Plt Count Lymph % (Auto) [place] % (Auto) Lymph # [place] # Baso # Seg Neutrophils % Seg Neuts % (Manual) Lymphocytes % (Manual) Monocytes % (Manual) Eosinophils % (Manual) Basophils % (Manual) Nucleated RBC % Seg Neutrophils # Seg Neutrophils # Man Lymphocytes # (Manual) Monocytes # (Manual) Eosinophils # (Manual) Basophils # (Manual) PT INR Fibrinogen dRVVT Confirm Interp Factor V Activity POC ABG pH 7.487 H POC ABG pCO2 POC ABG pO2 153 H ABG pO2 ABG HCO3 ABG Base Excess ABG Hemoglobin Oxyhemoglobin Sodium Potassium Chloride Carbon Dioxide BUN Creatinine Glucose POC Glucose 131 H 140 H Lactic Acid Calcium Phosphorus Magnesium Direct Bilirubin AST ALT Alkaline Phosphatase Lactate Dehydrogenase Troponin T C-Reactive Protein Total Protein Albumin Prealbumin Triglycerides Cholesterol LDL Cholesterol Direct HDL Cholesterol PTH Intact Urine pH Urine WBC (Auto) Urine Creatinine Urine Total Protein Fluid Total Protein Vancomycin Trough Rheumatoid Factor Complement C4 Miscellaneous Test Crossmatch 11/25/16 11/26/16 11/26/16 17:23 00:09 05:13 WBC RBC 2.94 L Hgb 8.4 L Hct 24.6 L MCV MCH MCHC RDW 16.4 H Plt Count Lymph % (Auto) [place] % (Auto) 12.3 H Lymph # [place] # 1.1 H Baso # Seg Neutrophils % Seg Neuts % (Manual) Lymphocytes % (Manual) Monocytes % (Manual) Eosinophils % (Manual) Basophils % (Manual) Nucleated RBC % Seg Neutrophils # Seg Neutrophils # Man Lymphocytes # (Manual) Monocytes # (Manual) Eosinophils # (Manual) Basophils # (Manual) PT INR Fibrinogen dRVVT Confirm Interp Factor V Activity POC ABG pH POC ABG pCO2 POC ABG pO2 ABG pO2 ABG HCO3 ABG Base Excess ABG Hemoglobin Oxyhemoglobin Sodium Potassium Chloride Carbon Dioxide BUN Creatinine Glucose POC Glucose 146 H 112 H Lactic Acid Calcium Phosphorus Magnesium Direct Bilirubin AST ALT Alkaline Phosphatase Lactate Dehydrogenase Troponin T C-Reactive Protein Total Protein Albumin Prealbumin Triglycerides Cholesterol LDL Cholesterol Direct HDL Cholesterol PTH Intact Urine pH Urine WBC (Auto) Urine Creatinine Urine Total Protein Fluid Total Protein Vancomycin Trough Rheumatoid Factor Complement C4 Miscellaneous Test Crossmatch 11/26/16 11/26/16 11/26/16 05:13 05:28 11:53 WBC RBC Hgb Hct MCV MCH MCHC RDW Plt Count Lymph % (Auto) [place] % (Auto) Lymph # [place] # Baso # Seg Neutrophils % Seg Neuts % (Manual) Lymphocytes % (Manual) Monocytes % (Manual) Eosinophils % (Manual) Basophils % (Manual) Nucleated RBC % Seg Neutrophils # Seg Neutrophils # Man Lymphocytes # (Manual) Monocytes # (Manual) Eosinophils # (Manual) Basophils # (Manual) PT INR Fibrinogen dRVVT Confirm Interp Factor V Activity POC ABG pH POC ABG pCO2 POC ABG pO2 ABG pO2 ABG HCO3 ABG Base Excess ABG Hemoglobin Oxyhemoglobin Sodium Potassium Chloride 97.8 L Carbon Dioxide BUN 37 H Creatinine 2.0 H Glucose 109 H POC Glucose 117 H 111 H Lactic Acid Calcium 7.9 L Phosphorus 1.80 L D Magnesium Direct Bilirubin AST ALT Alkaline Phosphatase Lactate Dehydrogenase Troponin T C-Reactive Protein Total Protein Albumin Prealbumin Triglycerides Cholesterol LDL Cholesterol Direct HDL Cholesterol PTH Intact Urine pH Urine WBC (Auto) Urine Creatinine Urine Total Protein Fluid Total Protein Vancomycin Trough Rheumatoid Factor Complement C4 Miscellaneous Test Crossmatch 11/26/16 11/27/16 11/27/16 17:14 04:50 06:02 WBC RBC Hgb Hct MCV MCH MCHC RDW Plt Count Lymph % (Auto) [place] % (Auto) Lymph # [place] # Baso # Seg Neutrophils % Seg Neuts % (Manual) Lymphocytes % (Manual) Monocytes % (Manual) Eosinophils % (Manual) Basophils % (Manual) Nucleated RBC % Seg Neutrophils # Seg Neutrophils # Man Lymphocytes # (Manual) Monocytes # (Manual) Eosinophils # (Manual) Basophils # (Manual) PT INR Fibrinogen dRVVT Confirm Interp Factor V Activity POC ABG pH POC ABG pCO2 POC ABG pO2 ABG pO2 75.2 L ABG HCO3 26.4 H ABG Base Excess ABG Hemoglobin 7.6 L Oxyhemoglobin 94.8 L Sodium Potassium Chloride Carbon Dioxide BUN 49 H Creatinine 2.3 H Glucose POC Glucose 115 H Lactic Acid Calcium Phosphorus 1.50 L Magnesium Direct Bilirubin AST ALT Alkaline Phosphatase Lactate Dehydrogenase Troponin T C-Reactive Protein Total Protein Albumin Prealbumin Triglycerides Cholesterol LDL Cholesterol Direct HDL Cholesterol PTH Intact Urine pH Urine WBC (Auto) Urine Creatinine Urine Total Protein Fluid Total Protein Vancomycin Trough Rheumatoid Factor Complement C4 Miscellaneous Test Crossmatch 11/27/16 11/27/16 11/27/16 06:02 11:25 17:25 WBC 11.6 H RBC 2.75 L Hgb 7.6 L Hct 23.4 L MCV MCH MCHC RDW 16.5 H Plt Count Lymph % (Auto) [place] % (Auto) Lymph # [place] # Baso # Seg Neutrophils % Seg Neuts % (Manual) Lymphocytes % (Manual) Monocytes % (Manual) Eosinophils % (Manual) Basophils % (Manual) Nucleated RBC % Seg Neutrophils # Seg Neutrophils # Man Lymphocytes # (Manual) Monocytes # (Manual) Eosinophils # (Manual) Basophils # (Manual) PT INR Fibrinogen dRVVT Confirm Interp Factor V Activity POC ABG pH POC ABG pCO2 POC ABG pO2 ABG pO2 ABG HCO3 ABG Base Excess ABG Hemoglobin Oxyhemoglobin Sodium Potassium Chloride Carbon Dioxide BUN Creatinine Glucose POC Glucose 114 H 126 H Lactic Acid Calcium Phosphorus Magnesium Direct Bilirubin AST ALT Alkaline Phosphatase Lactate Dehydrogenase Troponin T C-Reactive Protein Total Protein Albumin Prealbumin Triglycerides Cholesterol LDL Cholesterol Direct HDL Cholesterol PTH Intact Urine pH Urine WBC (Auto) Urine Creatinine Urine Total Protein Fluid Total Protein Vancomycin Trough Rheumatoid Factor Complement C4 Miscellaneous Test Crossmatch 11/28/16 11/28/16 11/28/16 04:45 05:33 05:44 WBC RBC Hgb Hct MCV MCH MCHC RDW Plt Count Lymph % (Auto) [place] % (Auto) Lymph # [place] # Baso # Seg Neutrophils % Seg Neuts % (Manual) Lymphocytes % (Manual) Monocytes % (Manual) Eosinophils % (Manual) Basophils % (Manual) Nucleated RBC % Seg Neutrophils # Seg Neutrophils # Man Lymphocytes # (Manual) Monocytes # (Manual) Eosinophils # (Manual) Basophils # (Manual) PT INR Fibrinogen dRVVT Confirm Interp Factor V Activity POC ABG pH POC ABG pCO2 POC ABG pO2 ABG pO2 99.3 H ABG HCO3 ABG Base Excess ABG Hemoglobin 8.3 L Oxyhemoglobin Sodium Potassium Chloride Carbon Dioxide BUN 63 H Creatinine 2.4 H Glucose 102 H POC Glucose 108 H Lactic Acid Calcium Phosphorus 1.80 L Magnesium Direct Bilirubin AST ALT Alkaline Phosphatase Lactate Dehydrogenase Troponin T C-Reactive Protein Total Protein Albumin Prealbumin Triglycerides Cholesterol LDL Cholesterol Direct HDL Cholesterol PTH Intact Urine pH Urine WBC (Auto) Urine Creatinine Urine Total Protein Fluid Total Protein Vancomycin Trough Rheumatoid Factor Complement C4 Miscellaneous Test Crossmatch 11/28/16 11/28/16 11/28/16 12:31 16:09 23:46 WBC RBC Hgb Hct MCV MCH MCHC RDW Plt Count Lymph % (Auto) [place] % (Auto) Lymph # [place] # Baso # Seg Neutrophils % Seg Neuts % (Manual) Lymphocytes % (Manual) Monocytes % (Manual) Eosinophils % (Manual) Basophils % (Manual) Nucleated RBC % Seg Neutrophils # Seg Neutrophils # Man Lymphocytes # (Manual) Monocytes # (Manual) Eosinophils # (Manual) Basophils # (Manual) PT INR Fibrinogen dRVVT Confirm Interp Factor V Activity POC ABG pH POC ABG pCO2 POC ABG pO2 ABG pO2 ABG HCO3 ABG Base Excess ABG Hemoglobin Oxyhemoglobin Sodium Potassium Chloride Carbon Dioxide BUN Creatinine Glucose POC Glucose 126 H 111 H 119 H Lactic Acid Calcium Phosphorus Magnesium Direct Bilirubin AST ALT Alkaline Phosphatase Lactate Dehydrogenase Troponin T C-Reactive Protein Total Protein Albumin Prealbumin Triglycerides Cholesterol LDL Cholesterol Direct HDL Cholesterol PTH Intact Urine pH Urine WBC (Auto) Urine Creatinine Urine Total Protein Fluid Total Protein Vancomycin Trough Rheumatoid Factor Complement C4 Miscellaneous Test Crossmatch 11/29/16 11/29/16 11/29/16 03:33 04:52 05:10 WBC RBC Hgb Hct MCV MCH MCHC RDW Plt Count Lymph % (Auto) [place] % (Auto) Lymph # [place] # Baso # Seg Neutrophils % Seg Neuts % (Manual) Lymphocytes % (Manual) Monocytes % (Manual) Eosinophils % (Manual) Basophils % (Manual) Nucleated RBC % Seg Neutrophils # Seg Neutrophils # Man Lymphocytes # (Manual) Monocytes # (Manual) Eosinophils # (Manual) Basophils # (Manual) PT INR Fibrinogen dRVVT Confirm Interp Factor V Activity POC ABG pH POC ABG pCO2 POC ABG pO2 ABG pO2 ABG HCO3 ABG Base Excess ABG Hemoglobin 7.0 L Oxyhemoglobin 94.9 L Sodium Potassium Chloride Carbon Dioxide BUN 73 H Creatinine 2.7 H Glucose POC Glucose 108 H Lactic Acid Calcium Phosphorus Magnesium Direct Bilirubin AST ALT Alkaline Phosphatase Lactate Dehydrogenase Troponin T C-Reactive Protein Total Protein Albumin Prealbumin Triglycerides Cholesterol LDL Cholesterol Direct HDL Cholesterol PTH Intact Urine pH Urine WBC (Auto) Urine Creatinine Urine Total Protein Fluid Total Protein Vancomycin Trough Rheumatoid Factor Complement C4 Miscellaneous Test Crossmatch 11/29/16 11/29/16 11/29/16 12:16 18:05 23:46 WBC RBC Hgb Hct MCV MCH MCHC RDW Plt Count Lymph % (Auto) [place] % (Auto) Lymph # [place] # Baso # Seg Neutrophils % Seg Neuts % (Manual) Lymphocytes % (Manual) Monocytes % (Manual) Eosinophils % (Manual) Basophils % (Manual) Nucleated RBC % Seg Neutrophils # Seg Neutrophils # Man Lymphocytes # (Manual) Monocytes # (Manual) Eosinophils # (Manual) Basophils # (Manual) PT INR Fibrinogen dRVVT Confirm Interp Factor V Activity POC ABG pH POC ABG pCO2 POC ABG pO2 ABG pO2 ABG HCO3 ABG Base Excess ABG Hemoglobin Oxyhemoglobin Sodium Potassium Chloride Carbon Dioxide BUN Creatinine Glucose POC Glucose 133 H 146 H 141 H Lactic Acid Calcium Phosphorus Magnesium Direct Bilirubin AST ALT Alkaline Phosphatase Lactate Dehydrogenase Troponin T C-Reactive Protein Total Protein Albumin Prealbumin Triglycerides Cholesterol LDL Cholesterol Direct HDL Cholesterol PTH Intact Urine pH Urine WBC (Auto) Urine Creatinine Urine Total Protein Fluid Total Protein Vancomycin Trough Rheumatoid Factor Complement C4 Miscellaneous Test Crossmatch 11/30/16 11/30/16 11/30/16 04:17 04:17 04:32 WBC 12.0 H RBC 2.80 L Hgb 7.8 L Hct 23.6 L MCV MCH MCHC RDW 16.6 H Plt Count Lymph % (Auto) [place] % (Auto) 11.3 H Lymph # [place] # 1.4 H Baso # Seg Neutrophils % Seg Neuts % (Manual) Lymphocytes % (Manual) Monocytes % (Manual) Eosinophils % (Manual) Basophils % (Manual) Nucleated RBC % Seg Neutrophils # 8.2 H Seg Neutrophils # Man Lymphocytes # (Manual) Monocytes # (Manual) Eosinophils # (Manual) Basophils # (Manual) PT INR Fibrinogen dRVVT Confirm Interp Factor V Activity POC ABG pH POC ABG pCO2 POC ABG pO2 ABG pO2 ABG HCO3 ABG Base Excess ABG Hemoglobin Oxyhemoglobin Sodium 169 H* D Potassium 5.1 H Chloride 121.5 H Carbon Dioxide BUN 34 H Creatinine 1.3 H D Glucose 133 H POC Glucose 131 H Lactic Acid Calcium 10.3 H Phosphorus Magnesium Direct Bilirubin AST ALT Alkaline Phosphatase Lactate Dehydrogenase Troponin T C-Reactive Protein Total Protein Albumin Prealbumin Triglycerides Cholesterol LDL Cholesterol Direct HDL Cholesterol PTH Intact Urine pH Urine WBC (Auto) Urine Creatinine Urine Total Protein Fluid Total Protein Vancomycin Trough Rheumatoid Factor Complement C4 Miscellaneous Test Crossmatch 11/30/16 11/30/16 11/30/16 05:45 11:10 17:26 WBC RBC Hgb Hct MCV MCH MCHC RDW Plt Count Lymph % (Auto) [place] % (Auto) Lymph # [place] # Baso # Seg Neutrophils % Seg Neuts % (Manual) Lymphocytes % (Manual) Monocytes % (Manual) Eosinophils % (Manual) Basophils % (Manual) Nucleated RBC % Seg Neutrophils # Seg Neutrophils # Man Lymphocytes # (Manual) Monocytes # (Manual) Eosinophils # (Manual) Basophils # (Manual) PT INR Fibrinogen dRVVT Confirm Interp Factor V Activity POC ABG pH POC ABG pCO2 POC ABG pO2 ABG pO2 ABG HCO3 ABG Base Excess ABG Hemoglobin Oxyhemoglobin Sodium Potassium Chloride Carbon Dioxide BUN 45 H Creatinine 1.6 H Glucose 131 H POC Glucose 146 H 134 H Lactic Acid Calcium Phosphorus Magnesium Direct Bilirubin AST ALT Alkaline Phosphatase Lactate Dehydrogenase Troponin T C-Reactive Protein Total Protein Albumin Prealbumin Triglycerides Cholesterol LDL Cholesterol Direct HDL Cholesterol PTH Intact Urine pH Urine WBC (Auto) Urine Creatinine Urine Total Protein Fluid Total Protein Vancomycin Trough Rheumatoid Factor Complement C4 Miscellaneous Test Crossmatch 11/30/16 12/01/16 12/01/16 23:35 00:06 03:35 WBC RBC Hgb Hct MCV MCH MCHC RDW Plt Count Lymph % (Auto) [place] % (Auto) Lymph # [place] # Baso # Seg Neutrophils % Seg Neuts % (Manual) Lymphocytes % (Manual) Monocytes % (Manual) Eosinophils % (Manual) Basophils % (Manual) Nucleated RBC % Seg Neutrophils # Seg Neutrophils # Man Lymphocytes # (Manual) Monocytes # (Manual) Eosinophils # (Manual) Basophils # (Manual) PT INR Fibrinogen dRVVT Confirm Interp Factor V Activity POC ABG pH POC ABG pCO2 POC ABG pO2 ABG pO2 ABG HCO3 ABG Base Excess ABG Hemoglobin 6.9 L Oxyhemoglobin Sodium Potassium Chloride Carbon Dioxide BUN 58 H Creatinine 1.8 H Glucose 146 H POC Glucose 151 H Lactic Acid Calcium Phosphorus Magnesium Direct Bilirubin AST ALT Alkaline Phosphatase Lactate Dehydrogenase Troponin T C-Reactive Protein Total Protein Albumin Prealbumin Triglycerides Cholesterol LDL Cholesterol Direct HDL Cholesterol PTH Intact Urine pH Urine WBC (Auto) Urine Creatinine Urine Total Protein Fluid Total Protein Vancomycin Trough Rheumatoid Factor Complement C4 Miscellaneous Test Crossmatch 12/01/16 12/01/16 12/01/16 03:35 05:47 11:52 WBC 12.3 H RBC 2.82 L Hgb 7.8 L Hct 23.7 L MCV MCH MCHC RDW 16.7 H Plt Count Lymph % (Auto) [place] % (Auto) 9.8 H Lymph # [place] # 1.2 H Baso # Seg Neutrophils % Seg Neuts % (Manual) Lymphocytes % (Manual) Monocytes % (Manual) Eosinophils % (Manual) Basophils % (Manual) Nucleated RBC % Seg Neutrophils # 8.4 H Seg Neutrophils # Man Lymphocytes # (Manual) Monocytes # (Manual) Eosinophils # (Manual) Basophils # (Manual) PT INR Fibrinogen dRVVT Confirm Interp Factor V Activity POC ABG pH POC ABG pCO2 POC ABG pO2 ABG pO2 ABG HCO3 ABG Base Excess ABG Hemoglobin Oxyhemoglobin Sodium Potassium Chloride Carbon Dioxide BUN Creatinine Glucose POC Glucose 152 H 152 H Lactic Acid Calcium Phosphorus Magnesium Direct Bilirubin AST ALT Alkaline Phosphatase Lactate Dehydrogenase Troponin T C-Reactive Protein Total Protein Albumin Prealbumin Triglycerides Cholesterol LDL Cholesterol Direct HDL Cholesterol PTH Intact Urine pH Urine WBC (Auto) Urine Creatinine Urine Total Protein Fluid Total Protein Vancomycin Trough Rheumatoid Factor Complement C4 Miscellaneous Test Crossmatch 12/01/16 12/01/16 12/02/16 17:40 23:41 05:00 WBC RBC Hgb Hct MCV MCH MCHC RDW Plt Count Lymph % (Auto) [place] % (Auto) Lymph # [place] # Baso # Seg Neutrophils % Seg Neuts % (Manual) Lymphocytes % (Manual) Monocytes % (Manual) Eosinophils % (Manual) Basophils % (Manual) Nucleated RBC % Seg Neutrophils # Seg Neutrophils # Man Lymphocytes # (Manual) Monocytes # (Manual) Eosinophils # (Manual) Basophils # (Manual) PT INR Fibrinogen dRVVT Confirm Interp Factor V Activity POC ABG pH POC ABG pCO2 POC ABG pO2 ABG pO2 ABG HCO3 ABG Base Excess ABG Hemoglobin Oxyhemoglobin Sodium Potassium Chloride Carbon Dioxide BUN 45 H Creatinine Glucose 115 H POC Glucose 140 H 144 H Lactic Acid Calcium Phosphorus Magnesium Direct Bilirubin AST ALT Alkaline Phosphatase Lactate Dehydrogenase Troponin T C-Reactive Protein Total Protein Albumin Prealbumin Triglycerides Cholesterol LDL Cholesterol Direct HDL Cholesterol PTH Intact Urine pH Urine WBC (Auto) Urine Creatinine Urine Total Protein Fluid Total Protein Vancomycin Trough Rheumatoid Factor Complement C4 Miscellaneous Test Crossmatch 12/02/16 12/02/16 12/02/16 05:31 11:20 17:38 WBC RBC Hgb Hct MCV MCH MCHC RDW Plt Count Lymph % (Auto) [place] % (Auto) Lymph # [place] # Baso # Seg Neutrophils % Seg Neuts % (Manual) Lymphocytes % (Manual) Monocytes % (Manual) Eosinophils % (Manual) Basophils % (Manual) Nucleated RBC % Seg Neutrophils # Seg Neutrophils # Man Lymphocytes # (Manual) Monocytes # (Manual) Eosinophils # (Manual) Basophils # (Manual) PT INR Fibrinogen dRVVT Confirm Interp Factor V Activity POC ABG pH POC ABG pCO2 POC ABG pO2 ABG pO2 ABG HCO3 ABG Base Excess ABG Hemoglobin Oxyhemoglobin Sodium Potassium Chloride Carbon Dioxide BUN Creatinine Glucose POC Glucose 136 H 177 H 139 H Lactic Acid Calcium Phosphorus Magnesium Direct Bilirubin AST ALT Alkaline Phosphatase Lactate Dehydrogenase Troponin T C-Reactive Protein Total Protein Albumin Prealbumin Triglycerides Cholesterol LDL Cholesterol Direct HDL Cholesterol PTH Intact Urine pH Urine WBC (Auto) Urine Creatinine Urine Total Protein Fluid Total Protein Vancomycin Trough Rheumatoid Factor Complement C4 Miscellaneous Test Crossmatch 12/02/16 12/03/16 12/03/16 23:43 04:00 04:00 WBC 20.4 H RBC 2.74 L Hgb 7.4 L Hct 23.6 L MCV MCH 27 L MCHC RDW 17.1 H Plt Count Lymph % (Auto) [place] % (Auto) Lymph # [place] # Baso # Seg Neutrophils % Seg Neuts % (Manual) 31.0 L Lymphocytes % (Manual) Monocytes % (Manual) Eosinophils % (Manual) Basophils % (Manual) Nucleated RBC % Seg Neutrophils # Seg Neutrophils # Man Lymphocytes # (Manual) Monocytes # (Manual) Eosinophils # (Manual) Basophils # (Manual) PT INR Fibrinogen dRVVT Confirm Interp Factor V Activity POC ABG pH POC ABG pCO2 POC ABG pO2 ABG pO2 ABG HCO3 ABG Base Excess ABG Hemoglobin Oxyhemoglobin Sodium Potassium Chloride Carbon Dioxide BUN 61 H Creatinine 1.6 H Glucose 119 H POC Glucose 158 H Lactic Acid Calcium Phosphorus Magnesium Direct Bilirubin AST ALT Alkaline Phosphatase Lactate Dehydrogenase Troponin T C-Reactive Protein Total Protein Albumin Prealbumin Triglycerides Cholesterol LDL Cholesterol Direct HDL Cholesterol PTH Intact Urine pH Urine WBC (Auto) Urine Creatinine Urine Total Protein Fluid Total Protein Vancomycin Trough Rheumatoid Factor Complement C4 Miscellaneous Test Crossmatch 12/03/16 12/03/16 12/03/16 05:02 12:11 18:16 WBC RBC Hgb Hct MCV MCH MCHC RDW Plt Count Lymph % (Auto) [place] % (Auto) Lymph # [place] # Baso # Seg Neutrophils % Seg Neuts % (Manual) Lymphocytes % (Manual) Monocytes % (Manual) Eosinophils % (Manual) Basophils % (Manual) Nucleated RBC % Seg Neutrophils # Seg Neutrophils # Man Lymphocytes # (Manual) Monocytes # (Manual) Eosinophils # (Manual) Basophils # (Manual) PT INR Fibrinogen dRVVT Confirm Interp Factor V Activity POC ABG pH POC ABG pCO2 POC ABG pO2 ABG pO2 ABG HCO3 ABG Base Excess ABG Hemoglobin Oxyhemoglobin Sodium Potassium Chloride Carbon Dioxide BUN Creatinine Glucose POC Glucose 146 H 157 H 124 H Lactic Acid Calcium Phosphorus Magnesium Direct Bilirubin AST ALT Alkaline Phosphatase Lactate Dehydrogenase Troponin T C-Reactive Protein Total Protein Albumin Prealbumin Triglycerides Cholesterol LDL Cholesterol Direct HDL Cholesterol PTH Intact Urine pH Urine WBC (Auto) Urine Creatinine Urine Total Protein Fluid Total Protein Vancomycin Trough Rheumatoid Factor Complement C4 Miscellaneous Test Crossmatch 12/03/16 12/04/16 12/04/16 23:41 04:00 04:45 WBC RBC Hgb Hct MCV MCH MCHC RDW Plt Count Lymph % (Auto) [place] % (Auto) Lymph # [place] # Baso # Seg Neutrophils % Seg Neuts % (Manual) Lymphocytes % (Manual) Monocytes % (Manual) Eosinophils % (Manual) Basophils % (Manual) Nucleated RBC % Seg Neutrophils # Seg Neutrophils # Man Lymphocytes # (Manual) Monocytes # (Manual) Eosinophils # (Manual) Basophils # (Manual) PT INR Fibrinogen dRVVT Confirm Interp Factor V Activity POC ABG pH POC ABG pCO2 POC ABG pO2 ABG pO2 ABG HCO3 ABG Base Excess ABG Hemoglobin Oxyhemoglobin Sodium Potassium Chloride Carbon Dioxide BUN 76 H Creatinine 1.6 H Glucose POC Glucose 130 H 136 H Lactic Acid Calcium Phosphorus Magnesium Direct Bilirubin AST ALT Alkaline Phosphatase 155 H Lactate Dehydrogenase Troponin T C-Reactive Protein Total Protein 5.5 L Albumin 1.5 L Prealbumin Triglycerides Cholesterol LDL Cholesterol Direct HDL Cholesterol PTH Intact Urine pH Urine WBC (Auto) Urine Creatinine Urine Total Protein Fluid Total Protein Vancomycin Trough Rheumatoid Factor Complement C4 Miscellaneous Test Crossmatch 12/04/16 12/04/16 12/05/16 12:08 17:23 00:10 WBC RBC Hgb Hct MCV MCH MCHC RDW Plt Count Lymph % (Auto) [place] % (Auto) Lymph # [place] # Baso # Seg Neutrophils % Seg Neuts % (Manual) Lymphocytes % (Manual) Monocytes % (Manual) Eosinophils % (Manual) Basophils % (Manual) Nucleated RBC % Seg Neutrophils # Seg Neutrophils # Man Lymphocytes # (Manual) Monocytes # (Manual) Eosinophils # (Manual) Basophils # (Manual) PT INR Fibrinogen dRVVT Confirm Interp Factor V Activity POC ABG pH POC ABG pCO2 POC ABG pO2 ABG pO2 ABG HCO3 ABG Base Excess ABG Hemoglobin Oxyhemoglobin Sodium Potassium Chloride Carbon Dioxide BUN Creatinine Glucose POC Glucose 114 H 129 H 124 H Lactic Acid Calcium Phosphorus Magnesium Direct Bilirubin AST ALT Alkaline Phosphatase Lactate Dehydrogenase Troponin T C-Reactive Protein Total Protein Albumin Prealbumin Triglycerides Cholesterol LDL Cholesterol Direct HDL Cholesterol PTH Intact Urine pH Urine WBC (Auto) Urine Creatinine Urine Total Protein Fluid Total Protein Vancomycin Trough Rheumatoid Factor Complement C4 Miscellaneous Test Crossmatch 12/05/16 12/05/16 12/05/16 05:00 05:00 05:18 WBC RBC Hgb Hct MCV MCH MCHC RDW Plt Count Lymph % (Auto) [place] % (Auto) Lymph # [place] # Baso # Seg Neutrophils % Seg Neuts % (Manual) Lymphocytes % (Manual) Monocytes % (Manual) Eosinophils % (Manual) Basophils % (Manual) Nucleated RBC % Seg Neutrophils # Seg Neutrophils # Man Lymphocytes # (Manual) Monocytes # (Manual) Eosinophils # (Manual) Basophils # (Manual) PT INR Fibrinogen dRVVT Confirm Interp Factor V Activity POC ABG pH POC ABG pCO2 POC ABG pO2 ABG pO2 ABG HCO3 ABG Base Excess ABG Hemoglobin Oxyhemoglobin Sodium Potassium Chloride Carbon Dioxide 21 L BUN 85 H Creatinine 1.9 H Glucose 131 H POC Glucose 154 H Lactic Acid Calcium Phosphorus Magnesium Direct Bilirubin AST ALT Alkaline Phosphatase Lactate Dehydrogenase Troponin T C-Reactive Protein 19.30 H Total Protein Albumin Prealbumin Triglycerides Cholesterol LDL Cholesterol Direct HDL Cholesterol PTH Intact Urine pH Urine WBC (Auto) Urine Creatinine Urine Total Protein Fluid Total Protein Vancomycin Trough Rheumatoid Factor Complement C4 Miscellaneous Test Crossmatch 12/05/16 12/05/16 12/05/16 11:43 17:46 23:25 WBC RBC Hgb Hct MCV MCH MCHC RDW Plt Count Lymph % (Auto) [place] % (Auto) Lymph # [place] # Baso # Seg Neutrophils % Seg Neuts % (Manual) Lymphocytes % (Manual) Monocytes % (Manual) Eosinophils % (Manual) Basophils % (Manual) Nucleated RBC % Seg Neutrophils # Seg Neutrophils # Man Lymphocytes # (Manual) Monocytes # (Manual) Eosinophils # (Manual) Basophils # (Manual) PT INR Fibrinogen dRVVT Confirm Interp Factor V Activity POC ABG pH POC ABG pCO2 POC ABG pO2 ABG pO2 ABG HCO3 ABG Base Excess ABG Hemoglobin Oxyhemoglobin Sodium Potassium Chloride Carbon Dioxide BUN Creatinine Glucose POC Glucose 117 H 113 H 111 H Lactic Acid Calcium Phosphorus Magnesium Direct Bilirubin AST ALT Alkaline Phosphatase Lactate Dehydrogenase Troponin T C-Reactive Protein Total Protein Albumin Prealbumin Triglycerides Cholesterol LDL Cholesterol Direct HDL Cholesterol PTH Intact Urine pH Urine WBC (Auto) Urine Creatinine Urine Total Protein Fluid Total Protein Vancomycin Trough Rheumatoid Factor Complement C4 Miscellaneous Test Crossmatch 12/05/16 12/06/16 12/06/16 Unknown 04:58 06:00 WBC RBC Hgb Hct MCV MCH MCHC RDW Plt Count Lymph % (Auto) [place] % (Auto) Lymph # [place] # Baso # Seg Neutrophils % Seg Neuts % (Manual) Lymphocytes % (Manual) Monocytes % (Manual) Eosinophils % (Manual) Basophils % (Manual) Nucleated RBC % Seg Neutrophils # Seg Neutrophils # Man Lymphocytes # (Manual) Monocytes # (Manual) Eosinophils # (Manual) Basophils # (Manual) PT INR Fibrinogen dRVVT Confirm Interp Factor V Activity POC ABG pH POC ABG pCO2 POC ABG pO2 ABG pO2 75.2 L ABG HCO3 ABG Base Excess -3.4 L ABG Hemoglobin 7.4 L Oxyhemoglobin 94.5 L Sodium Potassium Chloride Carbon Dioxide 20 L BUN 99 H Creatinine 2.1 H Glucose 126 H POC Glucose 145 H Lactic Acid Calcium Phosphorus 4.80 H Magnesium Direct Bilirubin AST ALT Alkaline Phosphatase Lactate Dehydrogenase Troponin T C-Reactive Protein Total Protein Albumin Prealbumin Triglycerides Cholesterol LDL Cholesterol Direct HDL Cholesterol PTH Intact Urine pH Urine WBC (Auto) Urine Creatinine Urine Total Protein Fluid Total Protein Vancomycin Trough Rheumatoid Factor Complement C4 Miscellaneous Test Crossmatch 12/06/16 12/06/16 12/06/16 06:46 11:54 17:55 WBC RBC Hgb 8.3 L Hct 26.4 L MCV MCH MCHC RDW Plt Count Lymph % (Auto) [place] % (Auto) Lymph # [place] # Baso # Seg Neutrophils % Seg Neuts % (Manual) Lymphocytes % (Manual) Monocytes % (Manual) Eosinophils % (Manual) Basophils % (Manual) Nucleated RBC % Seg Neutrophils # Seg Neutrophils # Man Lymphocytes # (Manual) Monocytes # (Manual) Eosinophils # (Manual) Basophils # (Manual) PT INR Fibrinogen dRVVT Confirm Interp Factor V Activity POC ABG pH POC ABG pCO2 POC ABG pO2 ABG pO2 ABG HCO3 ABG Base Excess ABG Hemoglobin Oxyhemoglobin Sodium Potassium Chloride Carbon Dioxide BUN Creatinine Glucose POC Glucose 126 H 157 H Lactic Acid Calcium Phosphorus Magnesium Direct Bilirubin AST ALT Alkaline Phosphatase Lactate Dehydrogenase Troponin T C-Reactive Protein Total Protein Albumin Prealbumin Triglycerides Cholesterol LDL Cholesterol Direct HDL Cholesterol PTH Intact Urine pH Urine WBC (Auto) Urine Creatinine Urine Total Protein Fluid Total Protein Vancomycin Trough Rheumatoid Factor Complement C4 Miscellaneous Test Crossmatch 12/06/16 12/07/16 12/07/16 23:59 05:34 06:30 WBC RBC Hgb Hct MCV MCH MCHC RDW Plt Count Lymph % (Auto) [place] % (Auto) Lymph # [place] # Baso # Seg Neutrophils % Seg Neuts % (Manual) Lymphocytes % (Manual) Monocytes % (Manual) Eosinophils % (Manual) Basophils % (Manual) Nucleated RBC % Seg Neutrophils # Seg Neutrophils # Man Lymphocytes # (Manual) Monocytes # (Manual) Eosinophils # (Manual) Basophils # (Manual) PT INR Fibrinogen dRVVT Confirm Interp Factor V Activity POC ABG pH POC ABG pCO2 POC ABG pO2 ABG pO2 ABG HCO3 ABG Base Excess ABG Hemoglobin Oxyhemoglobin Sodium Potassium Chloride Carbon Dioxide BUN 67 H Creatinine 1.4 H Glucose 126 H POC Glucose 129 H 129 H Lactic Acid Calcium Phosphorus Magnesium Direct Bilirubin AST ALT Alkaline Phosphatase Lactate Dehydrogenase Troponin T C-Reactive Protein Total Protein Albumin Prealbumin Triglycerides Cholesterol LDL Cholesterol Direct HDL Cholesterol PTH Intact Urine pH Urine WBC (Auto) Urine Creatinine Urine Total Protein Fluid Total Protein Vancomycin Trough Rheumatoid Factor Complement C4 Miscellaneous Test Crossmatch 12/07/16 12/07/16 12/07/16 06:30 08:00 09:45 WBC 18.8 H RBC 2.52 L Hgb 6.9 L 6.8 L Hct 21.2 L 21.1 L MCV MCH 27 L MCHC RDW 18.0 H Plt Count Lymph % (Auto) [place] % (Auto) 9.9 H Lymph # [place] # 1.9 H Baso # Seg Neutrophils % 71.8 H Seg Neuts % (Manual) Lymphocytes % (Manual) Monocytes % (Manual) Eosinophils % (Manual) Basophils % (Manual) Nucleated RBC % Seg Neutrophils # 13.5 H Seg Neutrophils # Man Lymphocytes # (Manual) Monocytes # (Manual) Eosinophils # (Manual) Basophils # (Manual) PT INR Fibrinogen dRVVT Confirm Interp Factor V Activity POC ABG pH POC ABG pCO2 POC ABG pO2 ABG pO2 ABG HCO3 ABG Base Excess ABG Hemoglobin Oxyhemoglobin Sodium Potassium Chloride Carbon Dioxide BUN Creatinine Glucose POC Glucose Lactic Acid Calcium Phosphorus Magnesium Direct Bilirubin AST ALT Alkaline Phosphatase Lactate Dehydrogenase Troponin T C-Reactive Protein Total Protein Albumin Prealbumin Triglycerides Cholesterol LDL Cholesterol Direct HDL Cholesterol PTH Intact Urine pH Urine WBC (Auto) Urine Creatinine Urine Total Protein Fluid Total Protein Vancomycin Trough Rheumatoid Factor Complement C4 Miscellaneous Test Crossmatch See Detail 12/07/16 12/07/16 12/07/16 11:44 18:19 23:59 WBC RBC Hgb Hct MCV MCH MCHC RDW Plt Count Lymph % (Auto) [place] % (Auto) Lymph # [place] # Baso # Seg Neutrophils % Seg Neuts % (Manual) Lymphocytes % (Manual) Monocytes % (Manual) Eosinophils % (Manual) Basophils % (Manual) Nucleated RBC % Seg Neutrophils # Seg Neutrophils # Man Lymphocytes # (Manual) Monocytes # (Manual) Eosinophils # (Manual) Basophils # (Manual) PT INR Fibrinogen dRVVT Confirm Interp Factor V Activity POC ABG pH POC ABG pCO2 POC ABG pO2 ABG pO2 ABG HCO3 ABG Base Excess ABG Hemoglobin Oxyhemoglobin Sodium Potassium Chloride Carbon Dioxide BUN Creatinine Glucose POC Glucose 137 H 138 H 133 H Lactic Acid Calcium Phosphorus Magnesium Direct Bilirubin AST ALT Alkaline Phosphatase Lactate Dehydrogenase Troponin T C-Reactive Protein Total Protein Albumin Prealbumin Triglycerides Cholesterol LDL Cholesterol Direct HDL Cholesterol PTH Intact Urine pH Urine WBC (Auto) Urine Creatinine Urine Total Protein Fluid Total Protein Vancomycin Trough Rheumatoid Factor Complement C4 Miscellaneous Test Crossmatch 12/08/16 12/08/16 12/08/16 05:25 05:30 05:30 WBC 23.8 H RBC 2.88 L Hgb 8.1 L Hct 24.3 L MCV MCH MCHC RDW 16.7 H Plt Count Lymph % (Auto) [place] % (Auto) Lymph # [place] # Baso # Seg Neutrophils % Seg Neuts % (Manual) 76.0 H Lymphocytes % (Manual) 9.0 L Monocytes % (Manual) 9.0 H Eosinophils % (Manual) Basophils % (Manual) Nucleated RBC % Seg Neutrophils # Seg Neutrophils # Man 18.1 H Lymphocytes # (Manual) Monocytes # (Manual) 2.1 H Eosinophils # (Manual) Basophils # (Manual) PT INR Fibrinogen dRVVT Confirm Interp Factor V Activity POC ABG pH POC ABG pCO2 POC ABG pO2 ABG pO2 ABG HCO3 ABG Base Excess ABG Hemoglobin Oxyhemoglobin Sodium Potassium Chloride Carbon Dioxide 21 L BUN 76 H Creatinine 1.6 H Glucose 133 H POC Glucose 177 H Lactic Acid Calcium Phosphorus Magnesium Direct Bilirubin AST ALT Alkaline Phosphatase Lactate Dehydrogenase Troponin T C-Reactive Protein Total Protein Albumin Prealbumin Triglycerides Cholesterol LDL Cholesterol Direct HDL Cholesterol PTH Intact Urine pH Urine WBC (Auto) Urine Creatinine Urine Total Protein Fluid Total Protein Vancomycin Trough Rheumatoid Factor Complement C4 Miscellaneous Test Crossmatch 12/08/16 12/08/16 12/09/16 11:45 18:00 00:00 WBC RBC Hgb Hct MCV MCH MCHC RDW Plt Count Lymph % (Auto) [place] % (Auto) Lymph # [place] # Baso # Seg Neutrophils % Seg Neuts % (Manual) Lymphocytes % (Manual) Monocytes % (Manual) Eosinophils % (Manual) Basophils % (Manual) Nucleated RBC % Seg Neutrophils # Seg Neutrophils # Man Lymphocytes # (Manual) Monocytes # (Manual) Eosinophils # (Manual) Basophils # (Manual) PT INR Fibrinogen dRVVT Confirm Interp Factor V Activity POC ABG pH POC ABG pCO2 POC ABG pO2 ABG pO2 ABG HCO3 ABG Base Excess ABG Hemoglobin Oxyhemoglobin Sodium Potassium Chloride Carbon Dioxide BUN Creatinine Glucose POC Glucose 163 H 123 H 137 H Lactic Acid Calcium Phosphorus Magnesium Direct Bilirubin AST ALT Alkaline Phosphatase Lactate Dehydrogenase Troponin T C-Reactive Protein Total Protein Albumin Prealbumin Triglycerides Cholesterol LDL Cholesterol Direct HDL Cholesterol PTH Intact Urine pH Urine WBC (Auto) Urine Creatinine Urine Total Protein Fluid Total Protein Vancomycin Trough Rheumatoid Factor Complement C4 Miscellaneous Test Crossmatch 12/09/16 12/09/16 12/09/16 05:34 06:00 06:00 WBC 15.5 H RBC 2.87 L Hgb 8.0 L Hct 24.2 L MCV MCH MCHC RDW 17.2 H Plt Count Lymph % (Auto) [place] % (Auto) 11.6 H Lymph # [place] # 1.8 H Baso # Seg Neutrophils % 70.8 H Seg Neuts % (Manual) Lymphocytes % (Manual) Monocytes % (Manual) Eosinophils % (Manual) Basophils % (Manual) Nucleated RBC % Seg Neutrophils # 11.0 H Seg Neutrophils # Man Lymphocytes # (Manual) Monocytes # (Manual) Eosinophils # (Manual) Basophils # (Manual) PT INR Fibrinogen dRVVT Confirm Interp Factor V Activity POC ABG pH POC ABG pCO2 POC ABG pO2 ABG pO2 ABG HCO3 ABG Base Excess ABG Hemoglobin Oxyhemoglobin Sodium Potassium Chloride Carbon Dioxide BUN 51 H Creatinine Glucose 117 H POC Glucose 136 H Lactic Acid Calcium Phosphorus Magnesium Direct Bilirubin AST ALT Alkaline Phosphatase Lactate Dehydrogenase Troponin T C-Reactive Protein Total Protein Albumin Prealbumin Triglycerides Cholesterol LDL Cholesterol Direct HDL Cholesterol PTH Intact Urine pH Urine WBC (Auto) Urine Creatinine Urine Total Protein Fluid Total Protein Vancomycin Trough Rheumatoid Factor Complement C4 Miscellaneous Test Crossmatch 12/09/16 12/09/16 12/09/16 12:29 17:52 23:10 WBC RBC Hgb Hct MCV MCH MCHC RDW Plt Count Lymph % (Auto) [place] % (Auto) Lymph # [place] # Baso # Seg Neutrophils % Seg Neuts % (Manual) Lymphocytes % (Manual) Monocytes % (Manual) Eosinophils % (Manual) Basophils % (Manual) Nucleated RBC % Seg Neutrophils # Seg Neutrophils # Man Lymphocytes # (Manual) Monocytes # (Manual) Eosinophils # (Manual) Basophils # (Manual) PT INR Fibrinogen dRVVT Confirm Interp Factor V Activity POC ABG pH POC ABG pCO2 POC ABG pO2 ABG pO2 ABG HCO3 ABG Base Excess ABG Hemoglobin Oxyhemoglobin Sodium Potassium Chloride Carbon Dioxide BUN Creatinine Glucose POC Glucose 139 H 140 H 129 H Lactic Acid Calcium Phosphorus Magnesium Direct Bilirubin AST ALT Alkaline Phosphatase Lactate Dehydrogenase Troponin T C-Reactive Protein Total Protein Albumin Prealbumin Triglycerides Cholesterol LDL Cholesterol Direct HDL Cholesterol PTH Intact Urine pH Urine WBC (Auto) Urine Creatinine Urine Total Protein Fluid Total Protein Vancomycin Trough Rheumatoid Factor Complement C4 Miscellaneous Test Crossmatch 12/10/16 12/10/16 12/10/16 05:00 05:00 06:54 WBC 15.7 H RBC 2.87 L Hgb 8.2 L Hct 24.4 L MCV MCH MCHC RDW 17.2 H Plt Count Lymph % (Auto) [place] % (Auto) 8.3 H Lymph # [place] # 1.3 H Baso # Seg Neutrophils % 72.8 H Seg Neuts % (Manual) Lymphocytes % (Manual) Monocytes % (Manual) Eosinophils % (Manual) Basophils % (Manual) Nucleated RBC % Seg Neutrophils # 11.4 H Seg Neutrophils # Man Lymphocytes # (Manual) Monocytes # (Manual) Eosinophils # (Manual) Basophils # (Manual) PT INR Fibrinogen dRVVT Confirm Interp Factor V Activity POC ABG pH POC ABG pCO2 POC ABG pO2 ABG pO2 ABG HCO3 ABG Base Excess ABG Hemoglobin Oxyhemoglobin Sodium Potassium Chloride Carbon Dioxide BUN 64 H Creatinine 1.4 H Glucose 134 H POC Glucose 154 H Lactic Acid Calcium Phosphorus Magnesium Direct Bilirubin AST ALT Alkaline Phosphatase Lactate Dehydrogenase Troponin T C-Reactive Protein Total Protein Albumin Prealbumin Triglycerides Cholesterol LDL Cholesterol Direct HDL Cholesterol PTH Intact Urine pH Urine WBC (Auto) Urine Creatinine Urine Total Protein Fluid Total Protein Vancomycin Trough Rheumatoid Factor Complement C4 Miscellaneous Test Crossmatch 12/10/16 12/10/16 12/10/16 11:58 17:29 23:52 WBC RBC Hgb Hct MCV MCH MCHC RDW Plt Count Lymph % (Auto) [place] % (Auto) Lymph # [place] # Baso # Seg Neutrophils % Seg Neuts % (Manual) Lymphocytes % (Manual) Monocytes % (Manual) Eosinophils % (Manual) Basophils % (Manual) Nucleated RBC % Seg Neutrophils # Seg Neutrophils # Man Lymphocytes # (Manual) Monocytes # (Manual) Eosinophils # (Manual) Basophils # (Manual) PT INR Fibrinogen dRVVT Confirm Interp Factor V Activity POC ABG pH POC ABG pCO2 POC ABG pO2 ABG pO2 ABG HCO3 ABG Base Excess ABG Hemoglobin Oxyhemoglobin Sodium Potassium Chloride Carbon Dioxide BUN Creatinine Glucose POC Glucose 144 H 163 H 125 H Lactic Acid Calcium Phosphorus Magnesium Direct Bilirubin AST ALT Alkaline Phosphatase Lactate Dehydrogenase Troponin T C-Reactive Protein Total Protein Albumin Prealbumin Triglycerides Cholesterol LDL Cholesterol Direct HDL Cholesterol PTH Intact Urine pH Urine WBC (Auto) Urine Creatinine Urine Total Protein Fluid Total Protein Vancomycin Trough Rheumatoid Factor Complement C4 Miscellaneous Test Crossmatch 12/11/16 12/11/16 12/11/16 05:38 06:30 06:30 WBC 14.4 H RBC 2.76 L Hgb 7.7 L Hct 23.4 L MCV MCH MCHC RDW 17.2 H Plt Count Lymph % (Auto) [place] % (Auto) 8.8 H Lymph # [place] # 1.3 H Baso # Seg Neutrophils % 72.5 H Seg Neuts % (Manual) Lymphocytes % (Manual) Monocytes % (Manual) Eosinophils % (Manual) Basophils % (Manual) Nucleated RBC % Seg Neutrophils # 10.5 H Seg Neutrophils # Man Lymphocytes # (Manual) Monocytes # (Manual) Eosinophils # (Manual) Basophils # (Manual) PT INR Fibrinogen dRVVT Confirm Interp Factor V Activity POC ABG pH POC ABG pCO2 POC ABG pO2 ABG pO2 ABG HCO3 ABG Base Excess ABG Hemoglobin Oxyhemoglobin Sodium Potassium Chloride Carbon Dioxide BUN 43 H Creatinine Glucose 124 H POC Glucose 141 H Lactic Acid Calcium 8.3 L Phosphorus Magnesium 1.60 L Direct Bilirubin AST ALT Alkaline Phosphatase Lactate Dehydrogenase Troponin T C-Reactive Protein Total Protein Albumin Prealbumin Triglycerides Cholesterol LDL Cholesterol Direct HDL Cholesterol PTH Intact Urine pH Urine WBC (Auto) Urine Creatinine Urine Total Protein Fluid Total Protein Vancomycin Trough Rheumatoid Factor Complement C4 Miscellaneous Test Crossmatch 12/11/16 12/11/16 12/11/16 11:15 17:59 23:48 WBC RBC Hgb Hct MCV MCH MCHC RDW Plt Count Lymph % (Auto) [place] % (Auto) Lymph # [place] # Baso # Seg Neutrophils % Seg Neuts % (Manual) Lymphocytes % (Manual) Monocytes % (Manual) Eosinophils % (Manual) Basophils % (Manual) Nucleated RBC % Seg Neutrophils # Seg Neutrophils # Man Lymphocytes # (Manual) Monocytes # (Manual) Eosinophils # (Manual) Basophils # (Manual) PT INR Fibrinogen dRVVT Confirm Interp Factor V Activity POC ABG pH POC ABG pCO2 POC ABG pO2 ABG pO2 ABG HCO3 ABG Base Excess ABG Hemoglobin Oxyhemoglobin Sodium Potassium Chloride Carbon Dioxide BUN Creatinine Glucose POC Glucose 188 H 106 H 119 H Lactic Acid Calcium Phosphorus Magnesium Direct Bilirubin AST ALT Alkaline Phosphatase Lactate Dehydrogenase Troponin T C-Reactive Protein Total Protein Albumin Prealbumin Triglycerides Cholesterol LDL Cholesterol Direct HDL Cholesterol PTH Intact Urine pH Urine WBC (Auto) Urine Creatinine Urine Total Protein Fluid Total Protein Vancomycin Trough Rheumatoid Factor Complement C4 Miscellaneous Test Crossmatch 12/12/16 12/12/16 12/12/16 05:00 06:01 12:20 WBC 16.7 H RBC 2.87 L Hgb 8.0 L Hct 24.2 L MCV MCH MCHC RDW 17.6 H Plt Count Lymph % (Auto) [place] % (Auto) Lymph # [place] # 1.2 H Baso # Seg Neutrophils % 75.3 H Seg Neuts % (Manual) Lymphocytes % (Manual) Monocytes % (Manual) Eosinophils % (Manual) Basophils % (Manual) Nucleated RBC % Seg Neutrophils # 12.6 H Seg Neutrophils # Man Lymphocytes # (Manual) Monocytes # (Manual) Eosinophils # (Manual) Basophils # (Manual) PT INR Fibrinogen dRVVT Confirm Interp Factor V Activity POC ABG pH POC ABG pCO2 POC ABG pO2 ABG pO2 ABG HCO3 ABG Base Excess ABG Hemoglobin Oxyhemoglobin Sodium Potassium Chloride Carbon Dioxide BUN Creatinine Glucose POC Glucose 134 H 149 H Lactic Acid Calcium Phosphorus Magnesium Direct Bilirubin AST ALT Alkaline Phosphatase Lactate Dehydrogenase Troponin T C-Reactive Protein Total Protein Albumin Prealbumin Triglycerides Cholesterol LDL Cholesterol Direct HDL Cholesterol PTH Intact Urine pH Urine WBC (Auto) Urine Creatinine Urine Total Protein Fluid Total Protein Vancomycin Trough Rheumatoid Factor Complement C4 Miscellaneous Test Crossmatch 12/12/16 12/12/16 12/12/16 17:38 23:01 Unknown WBC RBC Hgb Hct MCV MCH MCHC RDW Plt Count Lymph % (Auto) [place] % (Auto) Lymph # [place] # Baso # Seg Neutrophils % Seg Neuts % (Manual) Lymphocytes % (Manual) Monocytes % (Manual) Eosinophils % (Manual) Basophils % (Manual) Nucleated RBC % Seg Neutrophils # Seg Neutrophils # Man Lymphocytes # (Manual) Monocytes # (Manual) Eosinophils # (Manual) Basophils # (Manual) PT INR Fibrinogen dRVVT Confirm Interp Factor V Activity POC ABG pH POC ABG pCO2 POC ABG pO2 ABG pO2 ABG HCO3 ABG Base Excess ABG Hemoglobin Oxyhemoglobin Sodium Potassium Chloride Carbon Dioxide BUN 60 H Creatinine 1.3 H Glucose 126 H POC Glucose 127 H 144 H Lactic Acid Calcium Phosphorus Magnesium Direct Bilirubin AST ALT Alkaline Phosphatase Lactate Dehydrogenase Troponin T C-Reactive Protein Total Protein Albumin Prealbumin Triglycerides Cholesterol LDL Cholesterol Direct HDL Cholesterol PTH Intact Urine pH Urine WBC (Auto) Urine Creatinine Urine Total Protein Fluid Total Protein Vancomycin Trough Rheumatoid Factor Complement C4 Miscellaneous Test Crossmatch 12/13/16 12/13/16 12/13/16 04:00 04:00 05:19 WBC 18.7 H RBC 2.89 L Hgb 8.3 L Hct 24.6 L MCV MCH MCHC RDW 17.5 H Plt Count Lymph % (Auto) [place] % (Auto) Lymph # [place] # 1.3 H Baso # Seg Neutrophils % 71.5 H Seg Neuts % (Manual) Lymphocytes % (Manual) Monocytes % (Manual) Eosinophils % (Manual) Basophils % (Manual) Nucleated RBC % Seg Neutrophils # 13.4 H Seg Neutrophils # Man Lymphocytes # (Manual) Monocytes # (Manual) Eosinophils # (Manual) Basophils # (Manual) PT INR Fibrinogen dRVVT Confirm Interp Factor V Activity POC ABG pH POC ABG pCO2 POC ABG pO2 ABG pO2 ABG HCO3 ABG Base Excess ABG Hemoglobin Oxyhemoglobin Sodium Potassium Chloride Carbon Dioxide BUN 73 H Creatinine 1.5 H Glucose 141 H POC Glucose 171 H Lactic Acid Calcium Phosphorus Magnesium Direct Bilirubin AST ALT Alkaline Phosphatase Lactate Dehydrogenase Troponin T C-Reactive Protein Total Protein Albumin Prealbumin Triglycerides Cholesterol LDL Cholesterol Direct HDL Cholesterol PTH Intact Urine pH Urine WBC (Auto) Urine Creatinine Urine Total Protein Fluid Total Protein Vancomycin Trough Rheumatoid Factor Complement C4 Miscellaneous Test Crossmatch 12/13/16 12/13/16 12/14/16 12:28 16:48 00:01 WBC RBC Hgb Hct MCV MCH MCHC RDW Plt Count Lymph % (Auto) [place] % (Auto) Lymph # [place] # Baso # Seg Neutrophils % Seg Neuts % (Manual) Lymphocytes % (Manual) Monocytes % (Manual) Eosinophils % (Manual) Basophils % (Manual) Nucleated RBC % Seg Neutrophils # Seg Neutrophils # Man Lymphocytes # (Manual) Monocytes # (Manual) Eosinophils # (Manual) Basophils # (Manual) PT INR Fibrinogen dRVVT Confirm Interp Factor V Activity POC ABG pH POC ABG pCO2 POC ABG pO2 ABG pO2 ABG HCO3 ABG Base Excess ABG Hemoglobin Oxyhemoglobin Sodium Potassium Chloride Carbon Dioxide BUN Creatinine Glucose POC Glucose 206 H 173 H 139 H Lactic Acid Calcium Phosphorus Magnesium Direct Bilirubin AST ALT Alkaline Phosphatase Lactate Dehydrogenase Troponin T C-Reactive Protein Total Protein Albumin Prealbumin Triglycerides Cholesterol LDL Cholesterol Direct HDL Cholesterol PTH Intact Urine pH Urine WBC (Auto) Urine Creatinine Urine Total Protein Fluid Total Protein Vancomycin Trough Rheumatoid Factor Complement C4 Miscellaneous Test Crossmatch 12/14/16 12/14/16 12/14/16 05:16 06:10 11:17 WBC RBC Hgb Hct MCV MCH MCHC RDW Plt Count Lymph % (Auto) [place] % (Auto) Lymph # [place] # Baso # Seg Neutrophils % Seg Neuts % (Manual) Lymphocytes % (Manual) Monocytes % (Manual) Eosinophils % (Manual) Basophils % (Manual) Nucleated RBC % Seg Neutrophils # Seg Neutrophils # Man Lymphocytes # (Manual) Monocytes # (Manual) Eosinophils # (Manual) Basophils # (Manual) PT INR Fibrinogen dRVVT Confirm Interp Factor V Activity POC ABG pH POC ABG pCO2 POC ABG pO2 ABG pO2 ABG HCO3 ABG Base Excess ABG Hemoglobin Oxyhemoglobin Sodium Potassium Chloride Carbon Dioxide BUN 57 H Creatinine 1.4 H Glucose 135 H POC Glucose 158 H 137 H Lactic Acid Calcium Phosphorus Magnesium Direct Bilirubin AST ALT Alkaline Phosphatase Lactate Dehydrogenase Troponin T C-Reactive Protein Total Protein Albumin Prealbumin Triglycerides Cholesterol LDL Cholesterol Direct HDL Cholesterol PTH Intact Urine pH Urine WBC (Auto) Urine Creatinine Urine Total Protein Fluid Total Protein Vancomycin Trough Rheumatoid Factor Complement C4 Miscellaneous Test Crossmatch 12/14/16 12/14/16 12/15/16 17:52 23:27 04:00 WBC RBC Hgb Hct MCV MCH MCHC RDW Plt Count Lymph % (Auto) [place] % (Auto) Lymph # [place] # Baso # Seg Neutrophils % Seg Neuts % (Manual) Lymphocytes % (Manual) Monocytes % (Manual) Eosinophils % (Manual) Basophils % (Manual) Nucleated RBC % Seg Neutrophils # Seg Neutrophils # Man Lymphocytes # (Manual) Monocytes # (Manual) Eosinophils # (Manual) Basophils # (Manual) PT INR Fibrinogen dRVVT Confirm Interp Factor V Activity POC ABG pH POC ABG pCO2 POC ABG pO2 ABG pO2 ABG HCO3 ABG Base Excess ABG Hemoglobin Oxyhemoglobin Sodium Potassium Chloride 97.9 L Carbon Dioxide BUN 75 H Creatinine 1.6 H Glucose 122 H POC Glucose 149 H 163 H Lactic Acid Calcium Phosphorus 5.20 H Magnesium Direct Bilirubin AST ALT Alkaline Phosphatase Lactate Dehydrogenase Troponin T C-Reactive Protein Total Protein Albumin Prealbumin Triglycerides Cholesterol LDL Cholesterol Direct HDL Cholesterol PTH Intact Urine pH Urine WBC (Auto) Urine Creatinine Urine Total Protein Fluid Total Protein Vancomycin Trough Rheumatoid Factor Complement C4 Miscellaneous Test Crossmatch 12/15/16 12/15/16 12/15/16 05:50 11:24 17:01 WBC RBC Hgb Hct MCV MCH MCHC RDW Plt Count Lymph % (Auto) [place] % (Auto) Lymph # [place] # Baso # Seg Neutrophils % Seg Neuts % (Manual) Lymphocytes % (Manual) Monocytes % (Manual) Eosinophils % (Manual) Basophils % (Manual) Nucleated RBC % Seg Neutrophils # Seg Neutrophils # Man Lymphocytes # (Manual) Monocytes # (Manual) Eosinophils # (Manual) Basophils # (Manual) PT INR Fibrinogen dRVVT Confirm Interp Factor V Activity POC ABG pH POC ABG pCO2 POC ABG pO2 ABG pO2 ABG HCO3 ABG Base Excess ABG Hemoglobin Oxyhemoglobin Sodium Potassium Chloride Carbon Dioxide BUN Creatinine Glucose POC Glucose 150 H 146 H 167 H Lactic Acid Calcium Phosphorus Magnesium Direct Bilirubin AST ALT Alkaline Phosphatase Lactate Dehydrogenase Troponin T C-Reactive Protein Total Protein Albumin Prealbumin Triglycerides Cholesterol LDL Cholesterol Direct HDL Cholesterol PTH Intact Urine pH Urine WBC (Auto) Urine Creatinine Urine Total Protein Fluid Total Protein Vancomycin Trough Rheumatoid Factor Complement C4 Miscellaneous Test Crossmatch 12/15/16 12/16/16 12/16/16 23:34 05:25 11:24 WBC RBC Hgb Hct MCV MCH MCHC RDW Plt Count Lymph % (Auto) [place] % (Auto) Lymph # [place] # Baso # Seg Neutrophils % Seg Neuts % (Manual) Lymphocytes % (Manual) Monocytes % (Manual) Eosinophils % (Manual) Basophils % (Manual) Nucleated RBC % Seg Neutrophils # Seg Neutrophils # Man Lymphocytes # (Manual) Monocytes # (Manual) Eosinophils # (Manual) Basophils # (Manual) PT INR Fibrinogen dRVVT Confirm Interp Factor V Activity POC ABG pH POC ABG pCO2 POC ABG pO2 ABG pO2 ABG HCO3 ABG Base Excess ABG Hemoglobin Oxyhemoglobin Sodium Potassium Chloride Carbon Dioxide BUN Creatinine Glucose POC Glucose 127 H 139 H 165 H Lactic Acid Calcium Phosphorus Magnesium Direct Bilirubin AST ALT Alkaline Phosphatase Lactate Dehydrogenase Troponin T C-Reactive Protein Total Protein Albumin Prealbumin Triglycerides Cholesterol LDL Cholesterol Direct HDL Cholesterol PTH Intact Urine pH Urine WBC (Auto) Urine Creatinine Urine Total Protein Fluid Total Protein Vancomycin Trough Rheumatoid Factor Complement C4 Miscellaneous Test Crossmatch 12/16/16 12/16/16 12/16/16 15:30 16:25 17:31 WBC 17.8 H RBC 2.38 L Hgb 6.4 L Hct 20.3 L MCV MCH 27 L MCHC RDW 17.4 H Plt Count Lymph % (Auto) [place] % (Auto) Lymph # [place] # Baso # Seg Neutrophils % Seg Neuts % (Manual) Lymphocytes % (Manual) Monocytes % (Manual) 10.0 H Eosinophils % (Manual) Basophils % (Manual) Nucleated RBC % Seg Neutrophils # Seg Neutrophils # Man 8.5 H Lymphocytes # (Manual) Monocytes # (Manual) 1.8 H Eosinophils # (Manual) Basophils # (Manual) PT INR Fibrinogen dRVVT Confirm Interp Factor V Activity POC ABG pH POC ABG pCO2 POC ABG pO2 ABG pO2 ABG HCO3 ABG Base Excess ABG Hemoglobin Oxyhemoglobin Sodium Potassium Chloride Carbon Dioxide BUN Creatinine Glucose POC Glucose 176 H Lactic Acid Calcium Phosphorus Magnesium Direct Bilirubin AST ALT Alkaline Phosphatase Lactate Dehydrogenase Troponin T C-Reactive Protein Total Protein Albumin Prealbumin Triglycerides Cholesterol LDL Cholesterol Direct HDL Cholesterol PTH Intact Urine pH Urine WBC (Auto) Urine Creatinine Urine Total Protein Fluid Total Protein Vancomycin Trough Rheumatoid Factor Complement C4 Miscellaneous Test Crossmatch See Detail 12/17/16 12/17/16 12/17/16 00:14 04:00 05:00 WBC 20.0 H RBC 2.99 L Hgb 8.5 L Hct 25.7 L MCV MCH MCHC RDW 17.2 H Plt Count Lymph % (Auto) [place] % (Auto) Lymph # [place] # Baso # Seg Neutrophils % Seg Neuts % (Manual) Lymphocytes % (Manual) Monocytes % (Manual) Eosinophils % (Manual) Basophils % (Manual) Nucleated RBC % Seg Neutrophils # Seg Neutrophils # Man Lymphocytes # (Manual) Monocytes # (Manual) Eosinophils # (Manual) Basophils # (Manual) PT INR Fibrinogen dRVVT Confirm Interp Factor V Activity POC ABG pH POC ABG pCO2 POC ABG pO2 ABG pO2 ABG HCO3 ABG Base Excess ABG Hemoglobin Oxyhemoglobin Sodium Potassium Chloride 97.7 L Carbon Dioxide BUN 73 H Creatinine 1.7 H Glucose 136 H POC Glucose 148 H Lactic Acid Calcium Phosphorus 2.20 L Magnesium 2.70 H Direct Bilirubin AST ALT Alkaline Phosphatase Lactate Dehydrogenase Troponin T C-Reactive Protein Total Protein Albumin Prealbumin Triglycerides Cholesterol LDL Cholesterol Direct HDL Cholesterol PTH Intact Urine pH Urine WBC (Auto) Urine Creatinine Urine Total Protein Fluid Total Protein Vancomycin Trough Rheumatoid Factor Complement C4 Miscellaneous Test Crossmatch 12/17/16 12/17/16 12/17/16 05:39 12:50 16:32 WBC RBC Hgb Hct MCV MCH MCHC RDW Plt Count Lymph % (Auto) [place] % (Auto) Lymph # [place] # Baso # Seg Neutrophils % Seg Neuts % (Manual) Lymphocytes % (Manual) Monocytes % (Manual) Eosinophils % (Manual) Basophils % (Manual) Nucleated RBC % Seg Neutrophils # Seg Neutrophils # Man Lymphocytes # (Manual) Monocytes # (Manual) Eosinophils # (Manual) Basophils # (Manual) PT INR Fibrinogen dRVVT Confirm Interp Factor V Activity POC ABG pH POC ABG pCO2 POC ABG pO2 ABG pO2 ABG HCO3 ABG Base Excess ABG Hemoglobin Oxyhemoglobin Sodium Potassium Chloride Carbon Dioxide BUN Creatinine Glucose POC Glucose 162 H 146 H 169 H Lactic Acid Calcium Phosphorus Magnesium Direct Bilirubin AST ALT Alkaline Phosphatase Lactate Dehydrogenase Troponin T C-Reactive Protein Total Protein Albumin Prealbumin Triglycerides Cholesterol LDL Cholesterol Direct HDL Cholesterol PTH Intact Urine pH Urine WBC (Auto) Urine Creatinine Urine Total Protein Fluid Total Protein Vancomycin Trough Rheumatoid Factor Complement C4 Miscellaneous Test Crossmatch 12/17/16 12/18/16 12/18/16 23:57 05:00 05:32 WBC RBC Hgb Hct MCV MCH MCHC RDW Plt Count Lymph % (Auto) [place] % (Auto) Lymph # [place] # Baso # Seg Neutrophils % Seg Neuts % (Manual) Lymphocytes % (Manual) Monocytes % (Manual) Eosinophils % (Manual) Basophils % (Manual) Nucleated RBC % Seg Neutrophils # Seg Neutrophils # Man Lymphocytes # (Manual) Monocytes # (Manual) Eosinophils # (Manual) Basophils # (Manual) PT INR Fibrinogen dRVVT Confirm Interp Factor V Activity POC ABG pH POC ABG pCO2 POC ABG pO2 ABG pO2 ABG HCO3 ABG Base Excess ABG Hemoglobin Oxyhemoglobin Sodium Potassium Chloride 97.0 L Carbon Dioxide BUN 63 H Creatinine 1.4 H Glucose 174 H POC Glucose 145 H 201 H Lactic Acid Calcium Phosphorus 1.70 L D Magnesium Direct Bilirubin AST ALT Alkaline Phosphatase 257 H Lactate Dehydrogenase Troponin T C-Reactive Protein Total Protein 5.9 L Albumin 1.8 L Prealbumin Triglycerides Cholesterol LDL Cholesterol Direct HDL Cholesterol PTH Intact Urine pH Urine WBC (Auto) Urine Creatinine Urine Total Protein Fluid Total Protein Vancomycin Trough Rheumatoid Factor Complement C4 Miscellaneous Test Crossmatch 12/18/16 12/18/16 12/18/16 11:43 16:52 23:52 WBC RBC Hgb Hct MCV MCH MCHC RDW Plt Count Lymph % (Auto) [place] % (Auto) Lymph # [place] # Baso # Seg Neutrophils % Seg Neuts % (Manual) Lymphocytes % (Manual) Monocytes % (Manual) Eosinophils % (Manual) Basophils % (Manual) Nucleated RBC % Seg Neutrophils # Seg Neutrophils # Man Lymphocytes # (Manual) Monocytes # (Manual) Eosinophils # (Manual) Basophils # (Manual) PT INR Fibrinogen dRVVT Confirm Interp Factor V Activity POC ABG pH POC ABG pCO2 POC ABG pO2 ABG pO2 ABG HCO3 ABG Base Excess ABG Hemoglobin Oxyhemoglobin Sodium Potassium Chloride Carbon Dioxide BUN Creatinine Glucose POC Glucose 177 H 110 H 162 H Lactic Acid Calcium Phosphorus Magnesium Direct Bilirubin AST ALT Alkaline Phosphatase Lactate Dehydrogenase Troponin T C-Reactive Protein Total Protein Albumin Prealbumin Triglycerides Cholesterol LDL Cholesterol Direct HDL Cholesterol PTH Intact Urine pH Urine WBC (Auto) Urine Creatinine Urine Total Protein Fluid Total Protein Vancomycin Trough Rheumatoid Factor Complement C4 Miscellaneous Test Crossmatch 12/19/16 12/19/16 12/19/16 05:02 05:24 09:30 WBC 20.1 H RBC 2.73 L Hgb 7.6 L Hct 23.6 L MCV MCH MCHC RDW 17.6 H Plt Count Lymph % (Auto) [place] % (Auto) Lymph # [place] # Baso # Seg Neutrophils % Seg Neuts % (Manual) Lymphocytes % (Manual) 13.0 L Monocytes % (Manual) Eosinophils % (Manual) Basophils % (Manual) Nucleated RBC % 1.0 H Seg Neutrophils # Seg Neutrophils # Man 12.9 H Lymphocytes # (Manual) Monocytes # (Manual) 1.4 H Eosinophils # (Manual) Basophils # (Manual) 0.2 H PT INR Fibrinogen dRVVT Confirm Interp Factor V Activity POC ABG pH POC ABG pCO2 POC ABG pO2 ABG pO2 ABG HCO3 ABG Base Excess ABG Hemoglobin Oxyhemoglobin Sodium Potassium Chloride 97.8 L Carbon Dioxide BUN 84 H Creatinine 1.6 H Glucose 133 H POC Glucose 134 H Lactic Acid Calcium Phosphorus Magnesium Direct Bilirubin AST ALT Alkaline Phosphatase Lactate Dehydrogenase Troponin T C-Reactive Protein Total Protein Albumin Prealbumin Triglycerides Cholesterol LDL Cholesterol Direct HDL Cholesterol PTH Intact Urine pH Urine WBC (Auto) Urine Creatinine Urine Total Protein Fluid Total Protein Vancomycin Trough Rheumatoid Factor Complement C4 Miscellaneous Test Crossmatch 12/19/16 12/19/16 12/19/16 09:36 11:12 18:29 WBC RBC Hgb Hct MCV MCH MCHC RDW Plt Count Lymph % (Auto) [place] % (Auto) Lymph # [place] # Baso # Seg Neutrophils % Seg Neuts % (Manual) Lymphocytes % (Manual) Monocytes % (Manual) Eosinophils % (Manual) Basophils % (Manual) Nucleated RBC % Seg Neutrophils # Seg Neutrophils # Man Lymphocytes # (Manual) Monocytes # (Manual) Eosinophils # (Manual) Basophils # (Manual) PT INR Fibrinogen dRVVT Confirm Interp Factor V Activity POC ABG pH 7.503 H POC ABG pCO2 30.1 L POC ABG pO2 ABG pO2 ABG HCO3 ABG Base Excess ABG Hemoglobin Oxyhemoglobin Sodium Potassium Chloride Carbon Dioxide BUN Creatinine Glucose POC Glucose 138 H 156 H Lactic Acid Calcium Phosphorus Magnesium Direct Bilirubin AST ALT Alkaline Phosphatase Lactate Dehydrogenase Troponin T C-Reactive Protein Total Protein Albumin Prealbumin Triglycerides Cholesterol LDL Cholesterol Direct HDL Cholesterol PTH Intact Urine pH Urine WBC (Auto) Urine Creatinine Urine Total Protein Fluid Total Protein Vancomycin Trough Rheumatoid Factor Complement C4 Miscellaneous Test Crossmatch 12/20/16 12/20/16 12/20/16 00:03 06:17 07:07 WBC RBC Hgb Hct MCV MCH MCHC RDW Plt Count Lymph % (Auto) [place] % (Auto) Lymph # [place] # Baso # Seg Neutrophils % Seg Neuts % (Manual) Lymphocytes % (Manual) Monocytes % (Manual) Eosinophils % (Manual) Basophils % (Manual) Nucleated RBC % Seg Neutrophils # Seg Neutrophils # Man Lymphocytes # (Manual) Monocytes # (Manual) Eosinophils # (Manual) Basophils # (Manual) PT INR Fibrinogen dRVVT Confirm Interp Factor V Activity POC ABG pH POC ABG pCO2 POC ABG pO2 ABG pO2 ABG HCO3 ABG Base Excess ABG Hemoglobin Oxyhemoglobin Sodium Potassium Chloride 97.1 L Carbon Dioxide 20 L BUN 97 H Creatinine 1.8 H Glucose 153 H POC Glucose 152 H 175 H Lactic Acid Calcium Phosphorus Magnesium Direct Bilirubin AST ALT Alkaline Phosphatase Lactate Dehydrogenase Troponin T C-Reactive Protein Total Protein Albumin Prealbumin Triglycerides Cholesterol LDL Cholesterol Direct HDL Cholesterol PTH Intact Urine pH Urine WBC (Auto) Urine Creatinine Urine Total Protein Fluid Total Protein Vancomycin Trough Rheumatoid Factor Complement C4 Miscellaneous Test Crossmatch 12/20/16 12/20/16 12/20/16 12:00 17:42 23:53 WBC RBC Hgb Hct MCV MCH MCHC RDW Plt Count Lymph % (Auto) [place] % (Auto) Lymph # [place] # Baso # Seg Neutrophils % Seg Neuts % (Manual) Lymphocytes % (Manual) Monocytes % (Manual) Eosinophils % (Manual) Basophils % (Manual) Nucleated RBC % Seg Neutrophils # Seg Neutrophils # Man Lymphocytes # (Manual) Monocytes # (Manual) Eosinophils # (Manual) Basophils # (Manual) PT INR Fibrinogen dRVVT Confirm Interp Factor V Activity POC ABG pH POC ABG pCO2 POC ABG pO2 ABG pO2 ABG HCO3 ABG Base Excess ABG Hemoglobin Oxyhemoglobin Sodium Potassium Chloride Carbon Dioxide BUN Creatinine Glucose POC Glucose 141 H 156 H 132 H Lactic Acid Calcium Phosphorus Magnesium Direct Bilirubin AST ALT Alkaline Phosphatase Lactate Dehydrogenase Troponin T C-Reactive Protein Total Protein Albumin Prealbumin Triglycerides Cholesterol LDL Cholesterol Direct HDL Cholesterol PTH Intact Urine pH Urine WBC (Auto) Urine Creatinine Urine Total Protein Fluid Total Protein Vancomycin Trough Rheumatoid Factor Complement C4 Miscellaneous Test Crossmatch 12/21/16 12/21/16 12/21/16 05:49 08:50 12:19 WBC RBC Hgb Hct MCV MCH MCHC RDW Plt Count Lymph % (Auto) [place] % (Auto) Lymph # [place] # Baso # Seg Neutrophils % Seg Neuts % (Manual) Lymphocytes % (Manual) Monocytes % (Manual) Eosinophils % (Manual) Basophils % (Manual) Nucleated RBC % Seg Neutrophils # Seg Neutrophils # Man Lymphocytes # (Manual) Monocytes # (Manual) Eosinophils # (Manual) Basophils # (Manual) PT INR Fibrinogen dRVVT Confirm Interp Factor V Activity POC ABG pH POC ABG pCO2 POC ABG pO2 ABG pO2 ABG HCO3 ABG Base Excess ABG Hemoglobin Oxyhemoglobin Sodium Potassium 5.2 H D Chloride Carbon Dioxide BUN 63 H Creatinine Glucose 122 H POC Glucose 132 H 136 H Lactic Acid Calcium 8.3 L Phosphorus Magnesium Direct Bilirubin AST ALT Alkaline Phosphatase Lactate Dehydrogenase Troponin T C-Reactive Protein Total Protein Albumin Prealbumin Triglycerides Cholesterol LDL Cholesterol Direct HDL Cholesterol PTH Intact Urine pH Urine WBC (Auto) Urine Creatinine Urine Total Protein Fluid Total Protein Vancomycin Trough Rheumatoid Factor Complement C4 Miscellaneous Test Crossmatch 12/21/16 12/21/16 12/22/16 17:22 23:58 05:49 WBC RBC Hgb Hct MCV MCH MCHC RDW Plt Count Lymph % (Auto) [place] % (Auto) Lymph # [place] # Baso # Seg Neutrophils % Seg Neuts % (Manual) Lymphocytes % (Manual) Monocytes % (Manual) Eosinophils % (Manual) Basophils % (Manual) Nucleated RBC % Seg Neutrophils # Seg Neutrophils # Man Lymphocytes # (Manual) Monocytes # (Manual) Eosinophils # (Manual) Basophils # (Manual) PT INR Fibrinogen dRVVT Confirm Interp Factor V Activity POC ABG pH POC ABG pCO2 POC ABG pO2 ABG pO2 ABG HCO3 ABG Base Excess ABG Hemoglobin Oxyhemoglobin Sodium Potassium Chloride Carbon Dioxide BUN Creatinine Glucose POC Glucose 135 H 149 H 140 H Lactic Acid Calcium Phosphorus Magnesium Direct Bilirubin AST ALT Alkaline Phosphatase Lactate Dehydrogenase Troponin T C-Reactive Protein Total Protein Albumin Prealbumin Triglycerides Cholesterol LDL Cholesterol Direct HDL Cholesterol PTH Intact Urine pH Urine WBC (Auto) Urine Creatinine Urine Total Protein Fluid Total Protein Vancomycin Trough Rheumatoid Factor Complement C4 Miscellaneous Test Crossmatch 12/22/16 12/22/16 12/22/16 06:10 11:17 17:31 WBC RBC Hgb Hct MCV MCH MCHC RDW Plt Count Lymph % (Auto) [place] % (Auto) Lymph # [place] # Baso # Seg Neutrophils % Seg Neuts % (Manual) Lymphocytes % (Manual) Monocytes % (Manual) Eosinophils % (Manual) Basophils % (Manual) Nucleated RBC % Seg Neutrophils # Seg Neutrophils # Man Lymphocytes # (Manual) Monocytes # (Manual) Eosinophils # (Manual) Basophils # (Manual) PT INR Fibrinogen dRVVT Confirm Interp Factor V Activity POC ABG pH POC ABG pCO2 POC ABG pO2 ABG pO2 ABG HCO3 ABG Base Excess ABG Hemoglobin Oxyhemoglobin Sodium Potassium Chloride Carbon Dioxide BUN 76 H Creatinine 1.5 H Glucose 241 H POC Glucose 193 H 148 H Lactic Acid Calcium Phosphorus Magnesium Direct Bilirubin AST ALT Alkaline Phosphatase Lactate Dehydrogenase Troponin T C-Reactive Protein Total Protein Albumin Prealbumin Triglycerides Cholesterol LDL Cholesterol Direct HDL Cholesterol PTH Intact Urine pH Urine WBC (Auto) Urine Creatinine Urine Total Protein Fluid Total Protein Vancomycin Trough Rheumatoid Factor Complement C4 Miscellaneous Test Crossmatch 12/22/16 12/23/16 12/23/16 23:58 05:00 05:26 WBC RBC Hgb Hct MCV MCH MCHC RDW Plt Count Lymph % (Auto) [place] % (Auto) Lymph # [place] # Baso # Seg Neutrophils % Seg Neuts % (Manual) Lymphocytes % (Manual) Monocytes % (Manual) Eosinophils % (Manual) Basophils % (Manual) Nucleated RBC % Seg Neutrophils # Seg Neutrophils # Man Lymphocytes # (Manual) Monocytes # (Manual) Eosinophils # (Manual) Basophils # (Manual) PT INR Fibrinogen dRVVT Confirm Interp Factor V Activity POC ABG pH POC ABG pCO2 POC ABG pO2 ABG pO2 ABG HCO3 ABG Base Excess ABG Hemoglobin Oxyhemoglobin Sodium Potassium Chloride Carbon Dioxide BUN 49 H Creatinine Glucose 143 H POC Glucose 165 H 154 H Lactic Acid Calcium 8.2 L Phosphorus Magnesium 1.60 L Direct Bilirubin AST ALT Alkaline Phosphatase Lactate Dehydrogenase Troponin T C-Reactive Protein Total Protein Albumin Prealbumin Triglycerides Cholesterol LDL Cholesterol Direct HDL Cholesterol PTH Intact Urine pH Urine WBC (Auto) Urine Creatinine Urine Total Protein Fluid Total Protein Vancomycin Trough Rheumatoid Factor Complement C4 Miscellaneous Test Crossmatch 12/23/16 12/23/16 12/24/16 12:35 17:01 00:01 WBC RBC Hgb Hct MCV MCH MCHC RDW Plt Count Lymph % (Auto) [place] % (Auto) Lymph # [place] # Baso # Seg Neutrophils % Seg Neuts % (Manual) Lymphocytes % (Manual) Monocytes % (Manual) Eosinophils % (Manual) Basophils % (Manual) Nucleated RBC % Seg Neutrophils # Seg Neutrophils # Man Lymphocytes # (Manual) Monocytes # (Manual) Eosinophils # (Manual) Basophils # (Manual) PT INR Fibrinogen dRVVT Confirm Interp Factor V Activity POC ABG pH POC ABG pCO2 POC ABG pO2 ABG pO2 ABG HCO3 ABG Base Excess ABG Hemoglobin Oxyhemoglobin Sodium Potassium Chloride Carbon Dioxide BUN Creatinine Glucose POC Glucose 164 H 149 H 135 H Lactic Acid Calcium Phosphorus Magnesium Direct Bilirubin AST ALT Alkaline Phosphatase Lactate Dehydrogenase Troponin T C-Reactive Protein Total Protein Albumin Prealbumin Triglycerides Cholesterol LDL Cholesterol Direct HDL Cholesterol PTH Intact Urine pH Urine WBC (Auto) Urine Creatinine Urine Total Protein Fluid Total Protein Vancomycin Trough Rheumatoid Factor Complement C4 Miscellaneous Test Crossmatch 12/24/16 12/24/16 12/24/16 05:41 07:01 11:38 WBC RBC Hgb Hct MCV MCH MCHC RDW Plt Count Lymph % (Auto) [place] % (Auto) Lymph # [place] # Baso # Seg Neutrophils % Seg Neuts % (Manual) Lymphocytes % (Manual) Monocytes % (Manual) Eosinophils % (Manual) Basophils % (Manual) Nucleated RBC % Seg Neutrophils # Seg Neutrophils # Man Lymphocytes # (Manual) Monocytes # (Manual) Eosinophils # (Manual) Basophils # (Manual) PT INR Fibrinogen dRVVT Confirm Interp Factor V Activity POC ABG pH POC ABG pCO2 POC ABG pO2 ABG pO2 ABG HCO3 ABG Base Excess ABG Hemoglobin Oxyhemoglobin Sodium Potassium Chloride Carbon Dioxide BUN 72 H Creatinine 1.3 H Glucose 130 H POC Glucose 132 H 156 H Lactic Acid Calcium 8.2 L Phosphorus Magnesium Direct Bilirubin AST ALT Alkaline Phosphatase Lactate Dehydrogenase Troponin T C-Reactive Protein Total Protein Albumin Prealbumin Triglycerides Cholesterol LDL Cholesterol Direct HDL Cholesterol PTH Intact Urine pH Urine WBC (Auto) Urine Creatinine Urine Total Protein Fluid Total Protein Vancomycin Trough Rheumatoid Factor Complement C4 Miscellaneous Test Crossmatch 12/24/16 12/25/16 12/25/16 17:53 00:23 05:45 WBC RBC Hgb Hct MCV MCH MCHC RDW Plt Count Lymph % (Auto) [place] % (Auto) Lymph # [place] # Baso # Seg Neutrophils % Seg Neuts % (Manual) Lymphocytes % (Manual) Monocytes % (Manual) Eosinophils % (Manual) Basophils % (Manual) Nucleated RBC % Seg Neutrophils # Seg Neutrophils # Man Lymphocytes # (Manual) Monocytes # (Manual) Eosinophils # (Manual) Basophils # (Manual) PT INR Fibrinogen dRVVT Confirm Interp Factor V Activity POC ABG pH POC ABG pCO2 POC ABG pO2 ABG pO2 ABG HCO3 ABG Base Excess ABG Hemoglobin Oxyhemoglobin Sodium 146 H Potassium Chloride Carbon Dioxide BUN 51 H Creatinine Glucose 109 H POC Glucose 169 H 117 H Lactic Acid Calcium Phosphorus Magnesium Direct Bilirubin AST ALT Alkaline Phosphatase Lactate Dehydrogenase Troponin T C-Reactive Protein Total Protein Albumin Prealbumin Triglycerides Cholesterol LDL Cholesterol Direct HDL Cholesterol PTH Intact Urine pH Urine WBC (Auto) Urine Creatinine Urine Total Protein Fluid Total Protein Vancomycin Trough Rheumatoid Factor Complement C4 Miscellaneous Test Crossmatch 12/25/16 12/25/16 12/25/16 06:43 11:29 17:14 WBC RBC Hgb Hct MCV MCH MCHC RDW Plt Count Lymph % (Auto) [place] % (Auto) Lymph # [place] # Baso # Seg Neutrophils % Seg Neuts % (Manual) Lymphocytes % (Manual) Monocytes % (Manual) Eosinophils % (Manual) Basophils % (Manual) Nucleated RBC % Seg Neutrophils # Seg Neutrophils # Man Lymphocytes # (Manual) Monocytes # (Manual) Eosinophils # (Manual) Basophils # (Manual) PT INR Fibrinogen dRVVT Confirm Interp Factor V Activity POC ABG pH POC ABG pCO2 POC ABG pO2 ABG pO2 ABG HCO3 ABG Base Excess ABG Hemoglobin Oxyhemoglobin Sodium Potassium Chloride Carbon Dioxide BUN Creatinine Glucose POC Glucose 117 H 128 H 120 H Lactic Acid Calcium Phosphorus Magnesium Direct Bilirubin AST ALT Alkaline Phosphatase Lactate Dehydrogenase Troponin T C-Reactive Protein Total Protein Albumin Prealbumin Triglycerides Cholesterol LDL Cholesterol Direct HDL Cholesterol PTH Intact Urine pH Urine WBC (Auto) Urine Creatinine Urine Total Protein Fluid Total Protein Vancomycin Trough Rheumatoid Factor Complement C4 Miscellaneous Test Crossmatch 12/25/16 12/26/16 12/26/16 23:54 05:40 05:50 WBC 16.2 H RBC 2.32 L Hgb 6.2 L Hct 20.1 L MCV MCH 27 L MCHC RDW 18.6 H Plt Count Lymph % (Auto) [place] % (Auto) Lymph # [place] # Baso # Seg Neutrophils % Seg Neuts % (Manual) Lymphocytes % (Manual) Monocytes % (Manual) Eosinophils % (Manual) Basophils % (Manual) Nucleated RBC % Seg Neutrophils # Seg Neutrophils # Man Lymphocytes # (Manual) Monocytes # (Manual) Eosinophils # (Manual) Basophils # (Manual) PT INR Fibrinogen dRVVT Confirm Interp Factor V Activity POC ABG pH POC ABG pCO2 POC ABG pO2 ABG pO2 ABG HCO3 ABG Base Excess ABG Hemoglobin Oxyhemoglobin Sodium Potassium Chloride Carbon Dioxide BUN Creatinine Glucose POC Glucose 126 H 132 H Lactic Acid Calcium Phosphorus Magnesium Direct Bilirubin AST ALT Alkaline Phosphatase Lactate Dehydrogenase Troponin T C-Reactive Protein Total Protein Albumin Prealbumin Triglycerides Cholesterol LDL Cholesterol Direct HDL Cholesterol PTH Intact Urine pH Urine WBC (Auto) Urine Creatinine Urine Total Protein Fluid Total Protein Vancomycin Trough Rheumatoid Factor Complement C4 Miscellaneous Test Crossmatch 12/26/16 12/26/16 12/26/16 05:50 12:17 12:33 WBC RBC Hgb Hct MCV MCH MCHC RDW Plt Count Lymph % (Auto) [place] % (Auto) Lymph # [place] # Baso # Seg Neutrophils % Seg Neuts % (Manual) Lymphocytes % (Manual) Monocytes % (Manual) Eosinophils % (Manual) Basophils % (Manual) Nucleated RBC % Seg Neutrophils # Seg Neutrophils # Man Lymphocytes # (Manual) Monocytes # (Manual) Eosinophils # (Manual) Basophils # (Manual) PT INR Fibrinogen dRVVT Confirm Interp Factor V Activity POC ABG pH POC ABG pCO2 POC ABG pO2 ABG pO2 ABG HCO3 ABG Base Excess ABG Hemoglobin Oxyhemoglobin Sodium Potassium Chloride Carbon Dioxide BUN 73 H Creatinine 1.3 H Glucose 113 H POC Glucose 117 H Lactic Acid Calcium Phosphorus Magnesium Direct Bilirubin AST ALT Alkaline Phosphatase Lactate Dehydrogenase Troponin T C-Reactive Protein Total Protein Albumin Prealbumin Triglycerides Cholesterol LDL Cholesterol Direct HDL Cholesterol PTH Intact Urine pH Urine WBC (Auto) Urine Creatinine Urine Total Protein Fluid Total Protein Vancomycin Trough Rheumatoid Factor Complement C4 Miscellaneous Test Crossmatch See Detail 12/26/16 12/26/16 12/27/16 20:00 23:21 05:00 WBC RBC Hgb 8.4 L Hct 26.3 L D MCV MCH MCHC RDW Plt Count Lymph % (Auto) [place] % (Auto) Lymph # [place] # Baso # Seg Neutrophils % Seg Neuts % (Manual) Lymphocytes % (Manual) Monocytes % (Manual) Eosinophils % (Manual) Basophils % (Manual) Nucleated RBC % Seg Neutrophils # Seg Neutrophils # Man Lymphocytes # (Manual) Monocytes # (Manual) Eosinophils # (Manual) Basophils # (Manual) PT INR Fibrinogen dRVVT Confirm Interp Factor V Activity POC ABG pH POC ABG pCO2 POC ABG pO2 ABG pO2 ABG HCO3 ABG Base Excess ABG Hemoglobin Oxyhemoglobin Sodium Potassium Chloride Carbon Dioxide BUN 85 H Creatinine 1.6 H Glucose 118 H POC Glucose 124 H Lactic Acid Calcium Phosphorus 4.80 H Magnesium Direct Bilirubin AST ALT Alkaline Phosphatase Lactate Dehydrogenase Troponin T C-Reactive Protein Total Protein Albumin Prealbumin Triglycerides Cholesterol LDL Cholesterol Direct HDL Cholesterol PTH Intact Urine pH Urine WBC (Auto) Urine Creatinine Urine Total Protein Fluid Total Protein Vancomycin Trough Rheumatoid Factor Complement C4 Miscellaneous Test Crossmatch 12/27/16 12/27/16 12/27/16 05:00 05:35 12:24 WBC RBC Hgb 7.6 L Hct 22.8 L MCV MCH MCHC RDW Plt Count Lymph % (Auto) [place] % (Auto) Lymph # [place] # Baso # Seg Neutrophils % Seg Neuts % (Manual) Lymphocytes % (Manual) Monocytes % (Manual) Eosinophils % (Manual) Basophils % (Manual) Nucleated RBC % Seg Neutrophils # Seg Neutrophils # Man Lymphocytes # (Manual) Monocytes # (Manual) Eosinophils # (Manual) Basophils # (Manual) PT INR Fibrinogen dRVVT Confirm Interp Factor V Activity POC ABG pH POC ABG pCO2 POC ABG pO2 ABG pO2 ABG HCO3 ABG Base Excess ABG Hemoglobin Oxyhemoglobin Sodium Potassium Chloride Carbon Dioxide BUN Creatinine Glucose POC Glucose 115 H 131 H Lactic Acid Calcium Phosphorus Magnesium Direct Bilirubin AST ALT Alkaline Phosphatase Lactate Dehydrogenase Troponin T C-Reactive Protein Total Protein Albumin Prealbumin Triglycerides Cholesterol LDL Cholesterol Direct HDL Cholesterol PTH Intact Urine pH Urine WBC (Auto) Urine Creatinine Urine Total Protein Fluid Total Protein Vancomycin Trough Rheumatoid Factor Complement C4 Miscellaneous Test Crossmatch 12/27/16 12/28/16 12/28/16 17:16 00:18 04:00 WBC RBC Hgb Hct MCV MCH MCHC RDW Plt Count Lymph % (Auto) [place] % (Auto) Lymph # [place] # Baso # Seg Neutrophils % Seg Neuts % (Manual) Lymphocytes % (Manual) Monocytes % (Manual) Eosinophils % (Manual) Basophils % (Manual) Nucleated RBC % Seg Neutrophils # Seg Neutrophils # Man Lymphocytes # (Manual) Monocytes # (Manual) Eosinophils # (Manual) Basophils # (Manual) PT INR Fibrinogen dRVVT Confirm Interp Factor V Activity POC ABG pH POC ABG pCO2 POC ABG pO2 ABG pO2 ABG HCO3 ABG Base Excess ABG Hemoglobin Oxyhemoglobin Sodium Potassium 3.5 L Chloride Carbon Dioxide BUN 57 H Creatinine Glucose 118 H POC Glucose 136 H 120 H Lactic Acid Calcium 8.3 L Phosphorus Magnesium Direct Bilirubin AST ALT Alkaline Phosphatase Lactate Dehydrogenase Troponin T C-Reactive Protein Total Protein Albumin Prealbumin Triglycerides Cholesterol LDL Cholesterol Direct HDL Cholesterol PTH Intact Urine pH Urine WBC (Auto) Urine Creatinine Urine Total Protein Fluid Total Protein Vancomycin Trough Rheumatoid Factor Complement C4 Miscellaneous Test Crossmatch 12/28/16 12/28/16 12/28/16 04:00 05:11 08:30 WBC 17.0 H RBC 2.58 L Hgb 7.1 L Hct 22.0 L MCV MCH MCHC RDW 17.6 H Plt Count Lymph % (Auto) 12.2 L [place] % (Auto) Lymph # [place] # 1.1 H Baso # Seg Neutrophils % 80.5 H Seg Neuts % (Manual) Lymphocytes % (Manual) Monocytes % (Manual) Eosinophils % (Manual) Basophils % (Manual) Nucleated RBC % Seg Neutrophils # 13.7 H Seg Neutrophils # Man Lymphocytes # (Manual) Monocytes # (Manual) Eosinophils # (Manual) Basophils # (Manual) PT 16.1 H INR 1.23 H Fibrinogen dRVVT Confirm Interp Factor V Activity POC ABG pH POC ABG pCO2 POC ABG pO2 ABG pO2 ABG HCO3 ABG Base Excess ABG Hemoglobin Oxyhemoglobin Sodium Potassium Chloride Carbon Dioxide BUN Creatinine Glucose POC Glucose 122 H Lactic Acid Calcium Phosphorus Magnesium Direct Bilirubin AST ALT Alkaline Phosphatase Lactate Dehydrogenase Troponin T C-Reactive Protein Total Protein Albumin Prealbumin Triglycerides Cholesterol LDL Cholesterol Direct HDL Cholesterol PTH Intact Urine pH Urine WBC (Auto) Urine Creatinine Urine Total Protein Fluid Total Protein Vancomycin Trough Rheumatoid Factor Complement C4 Miscellaneous Test Crossmatch 12/28/16 12/28/16 12/28/16 12:27 16:32 23:46 WBC RBC Hgb Hct MCV MCH MCHC RDW Plt Count Lymph % (Auto) [place] % (Auto) Lymph # [place] # Baso # Seg Neutrophils % Seg Neuts % (Manual) Lymphocytes % (Manual) Monocytes % (Manual) Eosinophils % (Manual) Basophils % (Manual) Nucleated RBC % Seg Neutrophils # Seg Neutrophils # Man Lymphocytes # (Manual) Monocytes # (Manual) Eosinophils # (Manual) Basophils # (Manual) PT INR Fibrinogen dRVVT Confirm Interp Factor V Activity POC ABG pH POC ABG pCO2 POC ABG pO2 ABG pO2 ABG HCO3 ABG Base Excess ABG Hemoglobin Oxyhemoglobin Sodium Potassium Chloride Carbon Dioxide BUN Creatinine Glucose POC Glucose 127 H 117 H 108 H Lactic Acid Calcium Phosphorus Magnesium Direct Bilirubin AST ALT Alkaline Phosphatase Lactate Dehydrogenase Troponin T C-Reactive Protein Total Protein Albumin Prealbumin Triglycerides Cholesterol LDL Cholesterol Direct HDL Cholesterol PTH Intact Urine pH Urine WBC (Auto) Urine Creatinine Urine Total Protein Fluid Total Protein Vancomycin Trough Rheumatoid Factor Complement C4 Miscellaneous Test Crossmatch 12/29/16 12/29/16 12/29/16 05:15 05:15 05:32 WBC RBC Hgb Hct MCV MCH MCHC RDW Plt Count Lymph % (Auto) [place] % (Auto) Lymph # [place] # Baso # Seg Neutrophils % Seg Neuts % (Manual) Lymphocytes % (Manual) Monocytes % (Manual) Eosinophils % (Manual) Basophils % (Manual) Nucleated RBC % Seg Neutrophils # Seg Neutrophils # Man Lymphocytes # (Manual) Monocytes # (Manual) Eosinophils # (Manual) Basophils # (Manual) PT INR Fibrinogen dRVVT Confirm Interp Factor V Activity POC ABG pH POC ABG pCO2 POC ABG pO2 ABG pO2 ABG HCO3 ABG Base Excess ABG Hemoglobin Oxyhemoglobin Sodium Potassium Chloride Carbon Dioxide BUN 74 H Creatinine 1.6 H Glucose 111 H POC Glucose 123 H Lactic Acid Calcium Phosphorus Magnesium Direct Bilirubin AST ALT Alkaline Phosphatase Lactate Dehydrogenase Troponin T C-Reactive Protein Total Protein Albumin Prealbumin 0.110 L Triglycerides Cholesterol LDL Cholesterol Direct HDL Cholesterol PTH Intact Urine pH Urine WBC (Auto) Urine Creatinine Urine Total Protein Fluid Total Protein Vancomycin Trough Rheumatoid Factor Complement C4 Miscellaneous Test Crossmatch 12/29/16 12/29/16 12/29/16 11:43 13:45 14:00 WBC 13.8 H RBC 2.26 L Hgb 6.3 L Hct 20.4 L MCV MCH MCHC RDW 18.3 H Plt Count Lymph % (Auto) [place] % (Auto) Lymph # [place] # 0.9 H Baso # Seg Neutrophils % 78.6 H Seg Neuts % (Manual) Lymphocytes % (Manual) Monocytes % (Manual) Eosinophils % (Manual) Basophils % (Manual) Nucleated RBC % Seg Neutrophils # 10.8 H Seg Neutrophils # Man Lymphocytes # (Manual) Monocytes # (Manual) Eosinophils # (Manual) Basophils # (Manual) PT INR Fibrinogen dRVVT Confirm Interp Factor V Activity POC ABG pH POC ABG pCO2 POC ABG pO2 ABG pO2 ABG HCO3 ABG Base Excess ABG Hemoglobin Oxyhemoglobin Sodium Potassium Chloride Carbon Dioxide BUN Creatinine Glucose POC Glucose 133 H Lactic Acid Calcium Phosphorus Magnesium Direct Bilirubin AST ALT Alkaline Phosphatase Lactate Dehydrogenase Troponin T C-Reactive Protein Total Protein Albumin Prealbumin Triglycerides Cholesterol LDL Cholesterol Direct HDL Cholesterol PTH Intact Urine pH Urine WBC (Auto) Urine Creatinine Urine Total Protein Fluid Total Protein Vancomycin Trough Rheumatoid Factor Complement C4 Miscellaneous Test Crossmatch See Detail 12/29/16 12/29/16 12/29/16 17:03 23:15 23:22 WBC RBC Hgb 7.3 L Hct 22.3 L MCV MCH MCHC RDW Plt Count Lymph % (Auto) [place] % (Auto) Lymph # [place] # Baso # Seg Neutrophils % Seg Neuts % (Manual) Lymphocytes % (Manual) Monocytes % (Manual) Eosinophils % (Manual) Basophils % (Manual) Nucleated RBC % Seg Neutrophils # Seg Neutrophils # Man Lymphocytes # (Manual) Monocytes # (Manual) Eosinophils # (Manual) Basophils # (Manual) PT INR Fibrinogen dRVVT Confirm Interp Factor V Activity POC ABG pH POC ABG pCO2 POC ABG pO2 ABG pO2 ABG HCO3 ABG Base Excess ABG Hemoglobin Oxyhemoglobin Sodium Potassium Chloride Carbon Dioxide BUN Creatinine Glucose POC Glucose 139 H 120 H Lactic Acid Calcium Phosphorus Magnesium Direct Bilirubin AST ALT Alkaline Phosphatase Lactate Dehydrogenase Troponin T C-Reactive Protein Total Protein Albumin Prealbumin Triglycerides Cholesterol LDL Cholesterol Direct HDL Cholesterol PTH Intact Urine pH Urine WBC (Auto) Urine Creatinine Urine Total Protein Fluid Total Protein Vancomycin Trough Rheumatoid Factor Complement C4 Miscellaneous Test Crossmatch 12/30/16 12/30/16 12/30/16 04:20 04:20 05:43 WBC 15.6 H RBC 2.81 L Hgb 8.0 L Hct 24.0 L MCV MCH MCHC RDW 16.9 H Plt Count Lymph % (Auto) [place] % (Auto) Lymph # [place] # 1.0 H Baso # Seg Neutrophils % 76.2 H Seg Neuts % (Manual) Lymphocytes % (Manual) Monocytes % (Manual) Eosinophils % (Manual) Basophils % (Manual) Nucleated RBC % Seg Neutrophils # 11.9 H Seg Neutrophils # Man Lymphocytes # (Manual) Monocytes # (Manual) Eosinophils # (Manual) Basophils # (Manual) PT INR Fibrinogen dRVVT Confirm Interp Factor V Activity POC ABG pH POC ABG pCO2 POC ABG pO2 ABG pO2 ABG HCO3 ABG Base Excess ABG Hemoglobin Oxyhemoglobin Sodium Potassium Chloride Carbon Dioxide BUN 87 H Creatinine 1.8 H Glucose 119 H POC Glucose 115 H Lactic Acid Calcium Phosphorus Magnesium Direct Bilirubin AST ALT Alkaline Phosphatase Lactate Dehydrogenase Troponin T C-Reactive Protein Total Protein Albumin Prealbumin Triglycerides Cholesterol LDL Cholesterol Direct HDL Cholesterol PTH Intact Urine pH Urine WBC (Auto) Urine Creatinine Urine Total Protein Fluid Total Protein Vancomycin Trough Rheumatoid Factor Complement C4 Miscellaneous Test Crossmatch 12/30/16 12/30/16 12/31/16 17:27 23:21 04:00 WBC RBC Hgb Hct MCV MCH MCHC RDW Plt Count Lymph % (Auto) [place] % (Auto) Lymph # [place] # Baso # Seg Neutrophils % Seg Neuts % (Manual) Lymphocytes % (Manual) Monocytes % (Manual) Eosinophils % (Manual) Basophils % (Manual) Nucleated RBC % Seg Neutrophils # Seg Neutrophils # Man Lymphocytes # (Manual) Monocytes # (Manual) Eosinophils # (Manual) Basophils # (Manual) PT INR Fibrinogen dRVVT Confirm Interp Factor V Activity POC ABG pH POC ABG pCO2 POC ABG pO2 ABG pO2 ABG HCO3 ABG Base Excess ABG Hemoglobin Oxyhemoglobin Sodium Potassium Chloride Carbon Dioxide BUN 59 H Creatinine Glucose 298 H POC Glucose 144 H 125 H Lactic Acid Calcium Phosphorus Magnesium Direct Bilirubin AST ALT Alkaline Phosphatase Lactate Dehydrogenase Troponin T C-Reactive Protein Total Protein Albumin Prealbumin Triglycerides Cholesterol LDL Cholesterol Direct HDL Cholesterol PTH Intact Urine pH Urine WBC (Auto) Urine Creatinine Urine Total Protein Fluid Total Protein Vancomycin Trough Rheumatoid Factor Complement C4 Miscellaneous Test Crossmatch 12/31/16 12/31/16 12/31/16 05:11 12:18 18:17 WBC RBC Hgb Hct MCV MCH MCHC RDW Plt Count Lymph % (Auto) [place] % (Auto) Lymph # [place] # Baso # Seg Neutrophils % Seg Neuts % (Manual) Lymphocytes % (Manual) Monocytes % (Manual) Eosinophils % (Manual) Basophils % (Manual) Nucleated RBC % Seg Neutrophils # Seg Neutrophils # Man Lymphocytes # (Manual) Monocytes # (Manual) Eosinophils # (Manual) Basophils # (Manual) PT INR Fibrinogen dRVVT Confirm Interp Factor V Activity POC ABG pH POC ABG pCO2 POC ABG pO2 ABG pO2 ABG HCO3 ABG Base Excess ABG Hemoglobin Oxyhemoglobin Sodium Potassium Chloride Carbon Dioxide BUN Creatinine Glucose POC Glucose 167 H 125 H 133 H Lactic Acid Calcium Phosphorus Magnesium Direct Bilirubin AST ALT Alkaline Phosphatase Lactate Dehydrogenase Troponin T C-Reactive Protein Total Protein Albumin Prealbumin Triglycerides Cholesterol LDL Cholesterol Direct HDL Cholesterol PTH Intact Urine pH Urine WBC (Auto) Urine Creatinine Urine Total Protein Fluid Total Protein Vancomycin Trough Rheumatoid Factor Complement C4 Miscellaneous Test Crossmatch 12/31/16 01/01/17 01/01/17 23:55 05:00 05:12 WBC RBC Hgb Hct MCV MCH MCHC RDW Plt Count Lymph % (Auto) [place] % (Auto) Lymph # [place] # Baso # Seg Neutrophils % Seg Neuts % (Manual) Lymphocytes % (Manual) Monocytes % (Manual) Eosinophils % (Manual) Basophils % (Manual) Nucleated RBC % Seg Neutrophils # Seg Neutrophils # Man Lymphocytes # (Manual) Monocytes # (Manual) Eosinophils # (Manual) Basophils # (Manual) PT INR Fibrinogen dRVVT Confirm Interp Factor V Activity POC ABG pH POC ABG pCO2 POC ABG pO2 ABG pO2 ABG HCO3 ABG Base Excess ABG Hemoglobin Oxyhemoglobin Sodium Potassium Chloride Carbon Dioxide BUN 76 H Creatinine 1.5 H Glucose 109 H POC Glucose 129 H 129 H Lactic Acid Calcium Phosphorus Magnesium Direct Bilirubin AST ALT Alkaline Phosphatase 536 H Lactate Dehydrogenase Troponin T C-Reactive Protein Total Protein Albumin 1.5 L Prealbumin Triglycerides Cholesterol LDL Cholesterol Direct HDL Cholesterol PTH Intact Urine pH Urine WBC (Auto) Urine Creatinine Urine Total Protein Fluid Total Protein Vancomycin Trough Rheumatoid Factor Complement C4 Miscellaneous Test Crossmatch 01/01/17 01/01/17 01/01/17 12:25 17:01 23:32 WBC RBC Hgb Hct MCV MCH MCHC RDW Plt Count Lymph % (Auto) [place] % (Auto) Lymph # [place] # Baso # Seg Neutrophils % Seg Neuts % (Manual) Lymphocytes % (Manual) Monocytes % (Manual) Eosinophils % (Manual) Basophils % (Manual) Nucleated RBC % Seg Neutrophils # Seg Neutrophils # Man Lymphocytes # (Manual) Monocytes # (Manual) Eosinophils # (Manual) Basophils # (Manual) PT INR Fibrinogen dRVVT Confirm Interp Factor V Activity POC ABG pH POC ABG pCO2 POC ABG pO2 ABG pO2 ABG HCO3 ABG Base Excess ABG Hemoglobin Oxyhemoglobin Sodium Potassium Chloride Carbon Dioxide BUN Creatinine Glucose POC Glucose 140 H 142 H 112 H Lactic Acid Calcium Phosphorus Magnesium Direct Bilirubin AST ALT Alkaline Phosphatase Lactate Dehydrogenase Troponin T C-Reactive Protein Total Protein Albumin Prealbumin Triglycerides Cholesterol LDL Cholesterol Direct HDL Cholesterol PTH Intact Urine pH Urine WBC (Auto) Urine Creatinine Urine Total Protein Fluid Total Protein Vancomycin Trough Rheumatoid Factor Complement C4 Miscellaneous Test Crossmatch 01/02/17 01/02/17 01/02/17 04:56 06:00 11:37 WBC RBC Hgb Hct MCV MCH MCHC RDW Plt Count Lymph % (Auto) [place] % (Auto) Lymph # [place] # Baso # Seg Neutrophils % Seg Neuts % (Manual) Lymphocytes % (Manual) Monocytes % (Manual) Eosinophils % (Manual) Basophils % (Manual) Nucleated RBC % Seg Neutrophils # Seg Neutrophils # Man Lymphocytes # (Manual) Monocytes # (Manual) Eosinophils # (Manual) Basophils # (Manual) PT INR Fibrinogen dRVVT Confirm Interp Factor V Activity POC ABG pH POC ABG pCO2 POC ABG pO2 ABG pO2 ABG HCO3 ABG Base Excess ABG Hemoglobin Oxyhemoglobin Sodium Potassium Chloride Carbon Dioxide BUN 88 H Creatinine 1.7 H Glucose 113 H POC Glucose 136 H 200 H Lactic Acid Calcium Phosphorus Magnesium Direct Bilirubin AST ALT Alkaline Phosphatase Lactate Dehydrogenase Troponin T C-Reactive Protein Total Protein Albumin Prealbumin Triglycerides Cholesterol LDL Cholesterol Direct HDL Cholesterol PTH Intact Urine pH Urine WBC (Auto) Urine Creatinine Urine Total Protein Fluid Total Protein Vancomycin Trough Rheumatoid Factor Complement C4 Miscellaneous Test Crossmatch 01/02/17 01/02/17 01/03/17 17:42 22:52 04:54 WBC RBC Hgb Hct MCV MCH MCHC RDW Plt Count Lymph % (Auto) [place] % (Auto) Lymph # [place] # Baso # Seg Neutrophils % Seg Neuts % (Manual) Lymphocytes % (Manual) Monocytes % (Manual) Eosinophils % (Manual) Basophils % (Manual) Nucleated RBC % Seg Neutrophils # Seg Neutrophils # Man Lymphocytes # (Manual) Monocytes # (Manual) Eosinophils # (Manual) Basophils # (Manual) PT INR Fibrinogen dRVVT Confirm Interp Factor V Activity POC ABG pH POC ABG pCO2 POC ABG pO2 ABG pO2 ABG HCO3 ABG Base Excess ABG Hemoglobin Oxyhemoglobin Sodium Potassium Chloride Carbon Dioxide BUN Creatinine Glucose POC Glucose 112 H 133 H 111 H Lactic Acid Calcium Phosphorus Magnesium Direct Bilirubin AST ALT Alkaline Phosphatase Lactate Dehydrogenase Troponin T C-Reactive Protein Total Protein Albumin Prealbumin Triglycerides Cholesterol LDL Cholesterol Direct HDL Cholesterol PTH Intact Urine pH Urine WBC (Auto) Urine Creatinine Urine Total Protein Fluid Total Protein Vancomycin Trough Rheumatoid Factor Complement C4 Miscellaneous Test Crossmatch 01/03/17 01/03/17 01/03/17 05:00 05:00 14:02 WBC 11.2 H RBC 2.56 L Hgb 7.2 L Hct 22.3 L MCV MCH MCHC RDW 17.3 H Plt Count Lymph % (Auto) [place] % (Auto) 10.0 H Lymph # [place] # 1.1 H Baso # Seg Neutrophils % 70.5 H Seg Neuts % (Manual) Lymphocytes % (Manual) Monocytes % (Manual) Eosinophils % (Manual) Basophils % (Manual) Nucleated RBC % Seg Neutrophils # 7.9 H Seg Neutrophils # Man Lymphocytes # (Manual) Monocytes # (Manual) Eosinophils # (Manual) Basophils # (Manual) PT INR Fibrinogen dRVVT Confirm Interp Factor V Activity POC ABG pH POC ABG pCO2 POC ABG pO2 ABG pO2 ABG HCO3 ABG Base Excess ABG Hemoglobin Oxyhemoglobin Sodium Potassium Chloride Carbon Dioxide BUN 60 H Creatinine 1.3 H Glucose 110 H POC Glucose 119 H Lactic Acid Calcium Phosphorus Magnesium Direct Bilirubin AST ALT Alkaline Phosphatase Lactate Dehydrogenase Troponin T C-Reactive Protein Total Protein Albumin Prealbumin Triglycerides Cholesterol LDL Cholesterol Direct HDL Cholesterol PTH Intact Urine pH Urine WBC (Auto) Urine Creatinine Urine Total Protein Fluid Total Protein Vancomycin Trough Rheumatoid Factor Complement C4 Miscellaneous Test Crossmatch 01/03/17 01/03/17 01/04/17 18:13 23:40 05:57 WBC RBC Hgb Hct MCV MCH MCHC RDW Plt Count Lymph % (Auto) [place] % (Auto) Lymph # [place] # Baso # Seg Neutrophils % Seg Neuts % (Manual) Lymphocytes % (Manual) Monocytes % (Manual) Eosinophils % (Manual) Basophils % (Manual) Nucleated RBC % Seg Neutrophils # Seg Neutrophils # Man Lymphocytes # (Manual) Monocytes # (Manual) Eosinophils # (Manual) Basophils # (Manual) PT INR Fibrinogen dRVVT Confirm Interp Factor V Activity POC ABG pH POC ABG pCO2 POC ABG pO2 ABG pO2 ABG HCO3 ABG Base Excess ABG Hemoglobin Oxyhemoglobin Sodium Potassium Chloride Carbon Dioxide BUN Creatinine Glucose POC Glucose 107 H 129 H 111 H Lactic Acid Calcium Phosphorus Magnesium Direct Bilirubin AST ALT Alkaline Phosphatase Lactate Dehydrogenase Troponin T C-Reactive Protein Total Protein Albumin Prealbumin Triglycerides Cholesterol LDL Cholesterol Direct HDL Cholesterol PTH Intact Urine pH Urine WBC (Auto) Urine Creatinine Urine Total Protein Fluid Total Protein Vancomycin Trough Rheumatoid Factor Complement C4 Miscellaneous Test Crossmatch 01/04/17 01/04/17 01/04/17 12:46 15:27 17:11 WBC RBC Hgb Hct MCV MCH MCHC RDW Plt Count Lymph % (Auto) [place] % (Auto) Lymph # [place] # Baso # Seg Neutrophils % Seg Neuts % (Manual) Lymphocytes % (Manual) Monocytes % (Manual) Eosinophils % (Manual) Basophils % (Manual) Nucleated RBC % Seg Neutrophils # Seg Neutrophils # Man Lymphocytes # (Manual) Monocytes # (Manual) Eosinophils # (Manual) Basophils # (Manual) PT INR Fibrinogen dRVVT Confirm Interp Factor V Activity POC ABG pH POC ABG pCO2 POC ABG pO2 ABG pO2 ABG HCO3 ABG Base Excess ABG Hemoglobin Oxyhemoglobin Sodium Potassium Chloride Carbon Dioxide BUN 43 H Creatinine Glucose 124 H POC Glucose 159 H 125 H Lactic Acid Calcium 8.0 L Phosphorus 2.10 L Magnesium Direct Bilirubin AST ALT Alkaline Phosphatase Lactate Dehydrogenase Troponin T C-Reactive Protein Total Protein Albumin Prealbumin Triglycerides Cholesterol LDL Cholesterol Direct HDL Cholesterol PTH Intact Urine pH Urine WBC (Auto) Urine Creatinine Urine Total Protein Fluid Total Protein Vancomycin Trough Rheumatoid Factor Complement C4 Miscellaneous Test Crossmatch 01/04/17 01/05/17 01/05/17 23:31 04:00 05:46 WBC RBC Hgb Hct MCV MCH MCHC RDW Plt Count Lymph % (Auto) [place] % (Auto) Lymph # [place] # Baso # Seg Neutrophils % Seg Neuts % (Manual) Lymphocytes % (Manual) Monocytes % (Manual) Eosinophils % (Manual) Basophils % (Manual) Nucleated RBC % Seg Neutrophils # Seg Neutrophils # Man Lymphocytes # (Manual) Monocytes # (Manual) Eosinophils # (Manual) Basophils # (Manual) PT INR Fibrinogen dRVVT Confirm Interp Factor V Activity POC ABG pH POC ABG pCO2 POC ABG pO2 ABG pO2 ABG HCO3 ABG Base Excess ABG Hemoglobin Oxyhemoglobin Sodium Potassium Chloride Carbon Dioxide BUN 52 H Creatinine 1.3 H Glucose 113 H POC Glucose 123 H 118 H Lactic Acid Calcium Phosphorus 2.40 L Magnesium Direct Bilirubin AST ALT Alkaline Phosphatase Lactate Dehydrogenase Troponin T C-Reactive Protein Total Protein Albumin Prealbumin Triglycerides Cholesterol LDL Cholesterol Direct HDL Cholesterol PTH Intact Urine pH Urine WBC (Auto) Urine Creatinine Urine Total Protein Fluid Total Protein Vancomycin Trough Rheumatoid Factor Complement C4 Miscellaneous Test Crossmatch 01/05/17 01/05/17 01/05/17 11:41 17:48 23:27 WBC RBC Hgb Hct MCV MCH MCHC RDW Plt Count Lymph % (Auto) [place] % (Auto) Lymph # [place] # Baso # Seg Neutrophils % Seg Neuts % (Manual) Lymphocytes % (Manual) Monocytes % (Manual) Eosinophils % (Manual) Basophils % (Manual) Nucleated RBC % Seg Neutrophils # Seg Neutrophils # Man Lymphocytes # (Manual) Monocytes # (Manual) Eosinophils # (Manual) Basophils # (Manual) PT INR Fibrinogen dRVVT Confirm Interp Factor V Activity POC ABG pH POC ABG pCO2 POC ABG pO2 ABG pO2 ABG HCO3 ABG Base Excess ABG Hemoglobin Oxyhemoglobin Sodium Potassium Chloride Carbon Dioxide BUN Creatinine Glucose POC Glucose 163 H 142 H 155 H Lactic Acid Calcium Phosphorus Magnesium Direct Bilirubin AST ALT Alkaline Phosphatase Lactate Dehydrogenase Troponin T C-Reactive Protein Total Protein Albumin Prealbumin Triglycerides Cholesterol LDL Cholesterol Direct HDL Cholesterol PTH Intact Urine pH Urine WBC (Auto) Urine Creatinine Urine Total Protein Fluid Total Protein Vancomycin Trough Rheumatoid Factor Complement C4 Miscellaneous Test Crossmatch 01/06/17 01/06/17 01/06/17 05:20 07:35 11:18 WBC RBC Hgb Hct MCV MCH MCHC RDW Plt Count Lymph % (Auto) [place] % (Auto) Lymph # [place] # Baso # Seg Neutrophils % Seg Neuts % (Manual) Lymphocytes % (Manual) Monocytes % (Manual) Eosinophils % (Manual) Basophils % (Manual) Nucleated RBC % Seg Neutrophils # Seg Neutrophils # Man Lymphocytes # (Manual) Monocytes # (Manual) Eosinophils # (Manual) Basophils # (Manual) PT INR Fibrinogen dRVVT Confirm Interp Factor V Activity POC ABG pH POC ABG pCO2 POC ABG pO2 ABG pO2 ABG HCO3 ABG Base Excess ABG Hemoglobin Oxyhemoglobin Sodium Potassium Chloride Carbon Dioxide BUN 74 H Creatinine 1.6 H Glucose 135 H POC Glucose 108 H 149 H Lactic Acid Calcium Phosphorus Magnesium Direct Bilirubin AST ALT Alkaline Phosphatase Lactate Dehydrogenase Troponin T C-Reactive Protein Total Protein Albumin Prealbumin Triglycerides Cholesterol LDL Cholesterol Direct HDL Cholesterol PTH Intact Urine pH Urine WBC (Auto) Urine Creatinine Urine Total Protein Fluid Total Protein Vancomycin Trough Rheumatoid Factor Complement C4 Miscellaneous Test Crossmatch 01/06/17 01/07/17 01/07/17 17:17 00:23 05:31 WBC RBC Hgb Hct MCV MCH MCHC RDW Plt Count Lymph % (Auto) [place] % (Auto) Lymph # [place] # Baso # Seg Neutrophils % Seg Neuts % (Manual) Lymphocytes % (Manual) Monocytes % (Manual) Eosinophils % (Manual) Basophils % (Manual) Nucleated RBC % Seg Neutrophils # Seg Neutrophils # Man Lymphocytes # (Manual) Monocytes # (Manual) Eosinophils # (Manual) Basophils # (Manual) PT INR Fibrinogen dRVVT Confirm Interp Factor V Activity POC ABG pH POC ABG pCO2 POC ABG pO2 ABG pO2 ABG HCO3 ABG Base Excess ABG Hemoglobin Oxyhemoglobin Sodium Potassium Chloride Carbon Dioxide BUN Creatinine Glucose POC Glucose 146 H 165 H 153 H Lactic Acid Calcium Phosphorus Magnesium Direct Bilirubin AST ALT Alkaline Phosphatase Lactate Dehydrogenase Troponin T C-Reactive Protein Total Protein Albumin Prealbumin Triglycerides Cholesterol LDL Cholesterol Direct HDL Cholesterol PTH Intact Urine pH Urine WBC (Auto) Urine Creatinine Urine Total Protein Fluid Total Protein Vancomycin Trough Rheumatoid Factor Complement C4 Miscellaneous Test Crossmatch 01/07/17 01/07/17 01/07/17 06:00 11:39 17:11 WBC RBC Hgb Hct MCV MCH MCHC RDW Plt Count Lymph % (Auto) [place] % (Auto) Lymph # [place] # Baso # Seg Neutrophils % Seg Neuts % (Manual) Lymphocytes % (Manual) Monocytes % (Manual) Eosinophils % (Manual) Basophils % (Manual) Nucleated RBC % Seg Neutrophils # Seg Neutrophils # Man Lymphocytes # (Manual) Monocytes # (Manual) Eosinophils # (Manual) Basophils # (Manual) PT INR Fibrinogen dRVVT Confirm Interp Factor V Activity POC ABG pH POC ABG pCO2 POC ABG pO2 ABG pO2 ABG HCO3 ABG Base Excess ABG Hemoglobin Oxyhemoglobin Sodium Potassium Chloride Carbon Dioxide BUN 42 H Creatinine Glucose 175 H POC Glucose 163 H 163 H Lactic Acid Calcium Phosphorus 2.40 L D Magnesium Direct Bilirubin AST ALT Alkaline Phosphatase Lactate Dehydrogenase Troponin T C-Reactive Protein Total Protein Albumin Prealbumin Triglycerides Cholesterol LDL Cholesterol Direct HDL Cholesterol PTH Intact Urine pH Urine WBC (Auto) Urine Creatinine Urine Total Protein Fluid Total Protein Vancomycin Trough Rheumatoid Factor Complement C4 Miscellaneous Test Crossmatch 01/07/17 01/08/17 01/08/17 23:40 05:00 05:00 WBC 27.4 H RBC 2.27 L Hgb 6.1 L Hct 20.4 L MCV MCH 27 L MCHC RDW 17.8 H Plt Count Lymph % (Auto) [place] % (Auto) Lymph # [place] # Baso # Seg Neutrophils % Seg Neuts % (Manual) Lymphocytes % (Manual) Monocytes % (Manual) Eosinophils % (Manual) Basophils % (Manual) Nucleated RBC % Seg Neutrophils # Seg Neutrophils # Man Lymphocytes # (Manual) Monocytes # (Manual) Eosinophils # (Manual) Basophils # (Manual) PT INR Fibrinogen dRVVT Confirm Interp Factor V Activity POC ABG pH POC ABG pCO2 POC ABG pO2 ABG pO2 ABG HCO3 ABG Base Excess ABG Hemoglobin Oxyhemoglobin Sodium Potassium Chloride Carbon Dioxide 16 L D BUN 62 H Creatinine 1.6 H D Glucose 103 H POC Glucose 135 H Lactic Acid Calcium Phosphorus Magnesium Direct Bilirubin AST ALT Alkaline Phosphatase Lactate Dehydrogenase Troponin T C-Reactive Protein Total Protein Albumin Prealbumin Triglycerides Cholesterol LDL Cholesterol Direct HDL Cholesterol PTH Intact Urine pH Urine WBC (Auto) Urine Creatinine Urine Total Protein Fluid Total Protein Vancomycin Trough Rheumatoid Factor Complement C4 Miscellaneous Test Crossmatch 01/08/17 01/08/17 01/08/17 05:25 10:37 10:37 WBC RBC Hgb Hct MCV MCH MCHC RDW Plt Count Lymph % (Auto) [place] % (Auto) Lymph # [place] # Baso # Seg Neutrophils % Seg Neuts % (Manual) Lymphocytes % (Manual) Monocytes % (Manual) Eosinophils % (Manual) Basophils % (Manual) Nucleated RBC % Seg Neutrophils # Seg Neutrophils # Man Lymphocytes # (Manual) Monocytes # (Manual) Eosinophils # (Manual) Basophils # (Manual) PT INR Fibrinogen dRVVT Confirm Interp Factor V Activity POC ABG pH POC ABG pCO2 POC ABG pO2 ABG pO2 ABG HCO3 ABG Base Excess ABG Hemoglobin Oxyhemoglobin Sodium Potassium Chloride Carbon Dioxide BUN Creatinine Glucose POC Glucose 106 H Lactic Acid Calcium Phosphorus Magnesium Direct Bilirubin AST ALT Alkaline Phosphatase Lactate Dehydrogenase Troponin T C-Reactive Protein 24.40 H Total Protein Albumin Prealbumin Triglycerides Cholesterol LDL Cholesterol Direct HDL Cholesterol PTH Intact Urine pH Urine WBC (Auto) Urine Creatinine Urine Total Protein Fluid Total Protein Vancomycin Trough Rheumatoid Factor Complement C4 Miscellaneous Test Crossmatch See Detail 01/08/17 01/08/17 01/08/17 10:37 11:33 15:15 WBC RBC Hgb Hct MCV MCH MCHC RDW Plt Count Lymph % (Auto) [place] % (Auto) Lymph # [place] # Baso # Seg Neutrophils % Seg Neuts % (Manual) Lymphocytes % (Manual) Monocytes % (Manual) Eosinophils % (Manual) Basophils % (Manual) Nucleated RBC % Seg Neutrophils # Seg Neutrophils # Man Lymphocytes # (Manual) Monocytes # (Manual) Eosinophils # (Manual) Basophils # (Manual) PT INR Fibrinogen dRVVT Confirm Interp Factor V Activity POC ABG pH POC ABG pCO2 POC ABG pO2 ABG pO2 ABG HCO3 ABG Base Excess ABG Hemoglobin Oxyhemoglobin Sodium Potassium Chloride Carbon Dioxide BUN Creatinine Glucose POC Glucose 157 H Lactic Acid 9.70 H* 9.10 H* Calcium Phosphorus Magnesium Direct Bilirubin AST ALT Alkaline Phosphatase Lactate Dehydrogenase Troponin T C-Reactive Protein Total Protein Albumin Prealbumin Triglycerides Cholesterol LDL Cholesterol Direct HDL Cholesterol PTH Intact Urine pH Urine WBC (Auto) Urine Creatinine Urine Total Protein Fluid Total Protein Vancomycin Trough Rheumatoid Factor Complement C4 Miscellaneous Test Crossmatch 01/08/17 01/08/17 01/09/17 17:19 23:12 04:40 WBC RBC Hgb Hct MCV MCH MCHC RDW Plt Count Lymph % (Auto) [place] % (Auto) Lymph # [place] # Baso # Seg Neutrophils % Seg Neuts % (Manual) Lymphocytes % (Manual) Monocytes % (Manual) Eosinophils % (Manual) Basophils % (Manual) Nucleated RBC % Seg Neutrophils # Seg Neutrophils # Man Lymphocytes # (Manual) Monocytes # (Manual) Eosinophils # (Manual) Basophils # (Manual) PT INR Fibrinogen dRVVT Confirm Interp Factor V Activity POC ABG pH POC ABG pCO2 POC ABG pO2 ABG pO2 ABG HCO3 ABG Base Excess ABG Hemoglobin Oxyhemoglobin Sodium 147 H Potassium Chloride Carbon Dioxide BUN 82 H Creatinine 1.8 H Glucose 137 H POC Glucose 164 H 157 H Lactic Acid Calcium Phosphorus Magnesium Direct Bilirubin AST ALT Alkaline Phosphatase Lactate Dehydrogenase Troponin T C-Reactive Protein Total Protein Albumin Prealbumin Triglycerides Cholesterol LDL Cholesterol Direct HDL Cholesterol PTH Intact Urine pH Urine WBC (Auto) Urine Creatinine Urine Total Protein Fluid Total Protein Vancomycin Trough Rheumatoid Factor Complement C4 Miscellaneous Test Crossmatch 01/09/17 01/09/17 01/09/17 05:42 08:22 10:57 WBC RBC Hgb Hct MCV MCH MCHC RDW Plt Count Lymph % (Auto) [place] % (Auto) Lymph # [place] # Baso # Seg Neutrophils % Seg Neuts % (Manual) Lymphocytes % (Manual) Monocytes % (Manual) Eosinophils % (Manual) Basophils % (Manual) Nucleated RBC % Seg Neutrophils # Seg Neutrophils # Man Lymphocytes # (Manual) Monocytes # (Manual) Eosinophils # (Manual) Basophils # (Manual) PT INR Fibrinogen dRVVT Confirm Interp Factor V Activity POC ABG pH POC ABG pCO2 POC ABG pO2 ABG pO2 ABG HCO3 ABG Base Excess ABG Hemoglobin Oxyhemoglobin Sodium Potassium Chloride Carbon Dioxide BUN Creatinine Glucose POC Glucose 156 H 122 H Lactic Acid 2.30 H* Calcium Phosphorus Magnesium Direct Bilirubin AST ALT Alkaline Phosphatase Lactate Dehydrogenase Troponin T C-Reactive Protein Total Protein Albumin Prealbumin Triglycerides Cholesterol LDL Cholesterol Direct HDL Cholesterol PTH Intact Urine pH Urine WBC (Auto) Urine Creatinine Urine Total Protein Fluid Total Protein Vancomycin Trough Rheumatoid Factor Complement C4 Miscellaneous Test Crossmatch 01/09/17 01/09/17 01/09/17 13:30 17:14 18:45 WBC RBC Hgb Hct MCV MCH MCHC RDW Plt Count Lymph % (Auto) [place] % (Auto) Lymph # [place] # Baso # Seg Neutrophils % Seg Neuts % (Manual) Lymphocytes % (Manual) Monocytes % (Manual) Eosinophils % (Manual) Basophils % (Manual) Nucleated RBC % Seg Neutrophils # Seg Neutrophils # Man Lymphocytes # (Manual) Monocytes # (Manual) Eosinophils # (Manual) Basophils # (Manual) PT INR Fibrinogen dRVVT Confirm Interp Factor V Activity POC ABG pH POC ABG pCO2 POC ABG pO2 ABG pO2 ABG HCO3 ABG Base Excess ABG Hemoglobin Oxyhemoglobin Sodium Potassium Chloride Carbon Dioxide BUN Creatinine Glucose POC Glucose 127 H Lactic Acid Calcium Phosphorus Magnesium Direct Bilirubin AST ALT Alkaline Phosphatase Lactate Dehydrogenase Troponin T C-Reactive Protein 24.70 H Total Protein Albumin Prealbumin Triglycerides Cholesterol LDL Cholesterol Direct HDL Cholesterol PTH Intact Urine pH Urine WBC (Auto) Urine Creatinine Urine Total Protein Fluid Total Protein Vancomycin Trough Rheumatoid Factor Complement C4 Miscellaneous Test Flexitest 1 H Crossmatch 01/10/17 01/10/17 01/10/17 01:21 04:00 04:00 WBC 18.1 H RBC 3.22 L Hgb 8.8 L Hct 27.0 L D MCV MCH 27 L MCHC RDW 17.0 H Plt Count Lymph % (Auto) [place] % (Auto) Lymph # [place] # Baso # Seg Neutrophils % Seg Neuts % (Manual) Lymphocytes % (Manual) Monocytes % (Manual) Eosinophils % (Manual) Basophils % (Manual) Nucleated RBC % Seg Neutrophils # Seg Neutrophils # Man Lymphocytes # (Manual) Monocytes # (Manual) Eosinophils # (Manual) Basophils # (Manual) PT INR Fibrinogen dRVVT Confirm Interp Factor V Activity POC ABG pH POC ABG pCO2 POC ABG pO2 ABG pO2 ABG HCO3 ABG Base Excess ABG Hemoglobin Oxyhemoglobin Sodium Potassium Chloride Carbon Dioxide BUN 59 H Creatinine 1.3 H Glucose 122 H POC Glucose 160 H Lactic Acid Calcium Phosphorus Magnesium Direct Bilirubin AST ALT Alkaline Phosphatase Lactate Dehydrogenase Troponin T C-Reactive Protein Total Protein Albumin Prealbumin Triglycerides Cholesterol LDL Cholesterol Direct HDL Cholesterol PTH Intact Urine pH Urine WBC (Auto) Urine Creatinine Urine Total Protein Fluid Total Protein Vancomycin Trough Rheumatoid Factor Complement C4 Miscellaneous Test Crossmatch 01/10/17 01/10/17 01/10/17 05:36 12:14 17:55 WBC RBC Hgb Hct MCV MCH MCHC RDW Plt Count Lymph % (Auto) [place] % (Auto) Lymph # [place] # Baso # Seg Neutrophils % Seg Neuts % (Manual) Lymphocytes % (Manual) Monocytes % (Manual) Eosinophils % (Manual) Basophils % (Manual) Nucleated RBC % Seg Neutrophils # Seg Neutrophils # Man Lymphocytes # (Manual) Monocytes # (Manual) Eosinophils # (Manual) Basophils # (Manual) PT INR Fibrinogen dRVVT Confirm Interp Factor V Activity POC ABG pH POC ABG pCO2 POC ABG pO2 ABG pO2 ABG HCO3 ABG Base Excess ABG Hemoglobin Oxyhemoglobin Sodium Potassium Chloride Carbon Dioxide BUN Creatinine Glucose POC Glucose 163 H 120 H 144 H Lactic Acid Calcium Phosphorus Magnesium Direct Bilirubin AST ALT Alkaline Phosphatase Lactate Dehydrogenase Troponin T C-Reactive Protein Total Protein Albumin Prealbumin Triglycerides Cholesterol LDL Cholesterol Direct HDL Cholesterol PTH Intact Urine pH Urine WBC (Auto) Urine Creatinine Urine Total Protein Fluid Total Protein Vancomycin Trough Rheumatoid Factor Complement C4 Miscellaneous Test Crossmatch 01/11/17 01/11/17 01/11/17 00:09 04:00 04:00 WBC 15.8 H RBC 3.04 L Hgb 8.2 L Hct 25.5 L MCV MCH 27 L MCHC RDW 17.3 H Plt Count Lymph % (Auto) [place] % (Auto) Lymph # [place] # Baso # Seg Neutrophils % Seg Neuts % (Manual) Lymphocytes % (Manual) Monocytes % (Manual) Eosinophils % (Manual) Basophils % (Manual) Nucleated RBC % Seg Neutrophils # Seg Neutrophils # Man Lymphocytes # (Manual) Monocytes # (Manual) Eosinophils # (Manual) Basophils # (Manual) PT INR Fibrinogen dRVVT Confirm Interp Factor V Activity POC ABG pH POC ABG pCO2 POC ABG pO2 ABG pO2 ABG HCO3 ABG Base Excess ABG Hemoglobin Oxyhemoglobin Sodium Potassium Chloride Carbon Dioxide BUN 78 H Creatinine 1.6 H Glucose 109 H POC Glucose 122 H Lactic Acid Calcium Phosphorus Magnesium Direct Bilirubin AST ALT Alkaline Phosphatase Lactate Dehydrogenase Troponin T C-Reactive Protein Total Protein Albumin Prealbumin Triglycerides Cholesterol LDL Cholesterol Direct HDL Cholesterol PTH Intact Urine pH Urine WBC (Auto) Urine Creatinine Urine Total Protein Fluid Total Protein Vancomycin Trough Rheumatoid Factor Complement C4 Miscellaneous Test Crossmatch 01/11/17 01/11/17 01/11/17 12:46 18:23 23:42 WBC RBC Hgb Hct MCV MCH MCHC RDW Plt Count Lymph % (Auto) [place] % (Auto) Lymph # [place] # Baso # Seg Neutrophils % Seg Neuts % (Manual) Lymphocytes % (Manual) Monocytes % (Manual) Eosinophils % (Manual) Basophils % (Manual) Nucleated RBC % Seg Neutrophils # Seg Neutrophils # Man Lymphocytes # (Manual) Monocytes # (Manual) Eosinophils # (Manual) Basophils # (Manual) PT INR Fibrinogen dRVVT Confirm Interp Factor V Activity POC ABG pH POC ABG pCO2 POC ABG pO2 ABG pO2 ABG HCO3 ABG Base Excess ABG Hemoglobin Oxyhemoglobin Sodium Potassium Chloride Carbon Dioxide BUN Creatinine Glucose POC Glucose 148 H 125 H 124 H Lactic Acid Calcium Phosphorus Magnesium Direct Bilirubin AST ALT Alkaline Phosphatase Lactate Dehydrogenase Troponin T C-Reactive Protein Total Protein Albumin Prealbumin Triglycerides Cholesterol LDL Cholesterol Direct HDL Cholesterol PTH Intact Urine pH Urine WBC (Auto) Urine Creatinine Urine Total Protein Fluid Total Protein Vancomycin Trough Rheumatoid Factor Complement C4 Miscellaneous Test Crossmatch 01/12/17 01/12/17 01/12/17 04:30 04:30 05:47 WBC 15.8 H RBC 3.31 L Hgb 8.9 L Hct 27.9 L MCV MCH 27 L MCHC RDW 17.4 H Plt Count Lymph % (Auto) [place] % (Auto) Lymph # [place] # Baso # Seg Neutrophils % Seg Neuts % (Manual) Lymphocytes % (Manual) Monocytes % (Manual) Eosinophils % (Manual) Basophils % (Manual) Nucleated RBC % Seg Neutrophils # Seg Neutrophils # Man Lymphocytes # (Manual) Monocytes # (Manual) Eosinophils # (Manual) Basophils # (Manual) PT INR Fibrinogen dRVVT Confirm Interp Factor V Activity POC ABG pH POC ABG pCO2 POC ABG pO2 ABG pO2 ABG HCO3 ABG Base Excess ABG Hemoglobin Oxyhemoglobin Sodium Potassium Chloride Carbon Dioxide BUN 57 H Creatinine Glucose 121 H POC Glucose 110 H Lactic Acid Calcium Phosphorus 2.10 L Magnesium Direct Bilirubin AST ALT Alkaline Phosphatase Lactate Dehydrogenase Troponin T C-Reactive Protein Total Protein Albumin Prealbumin Triglycerides Cholesterol LDL Cholesterol Direct HDL Cholesterol PTH Intact Urine pH Urine WBC (Auto) Urine Creatinine Urine Total Protein Fluid Total Protein Vancomycin Trough Rheumatoid Factor Complement C4 Miscellaneous Test Crossmatch 01/12/17 01/12/17 01/12/17 11:35 17:45 23:14 WBC RBC Hgb Hct MCV MCH MCHC RDW Plt Count Lymph % (Auto) [place] % (Auto) Lymph # [place] # Baso # Seg Neutrophils % Seg Neuts % (Manual) Lymphocytes % (Manual) Monocytes % (Manual) Eosinophils % (Manual) Basophils % (Manual) Nucleated RBC % Seg Neutrophils # Seg Neutrophils # Man Lymphocytes # (Manual) Monocytes # (Manual) Eosinophils # (Manual) Basophils # (Manual) PT INR Fibrinogen dRVVT Confirm Interp Factor V Activity POC ABG pH POC ABG pCO2 POC ABG pO2 ABG pO2 ABG HCO3 ABG Base Excess ABG Hemoglobin Oxyhemoglobin Sodium Potassium Chloride Carbon Dioxide BUN Creatinine Glucose POC Glucose 146 H 117 H 123 H Lactic Acid Calcium Phosphorus Magnesium Direct Bilirubin AST ALT Alkaline Phosphatase Lactate Dehydrogenase Troponin T C-Reactive Protein Total Protein Albumin Prealbumin Triglycerides Cholesterol LDL Cholesterol Direct HDL Cholesterol PTH Intact Urine pH Urine WBC (Auto) Urine Creatinine Urine Total Protein Fluid Total Protein Vancomycin Trough Rheumatoid Factor Complement C4 Miscellaneous Test Crossmatch 01/13/17 01/13/17 01/13/17 05:32 06:00 12:10 WBC RBC Hgb Hct MCV MCH MCHC RDW Plt Count Lymph % (Auto) [place] % (Auto) Lymph # [place] # Baso # Seg Neutrophils % Seg Neuts % (Manual) Lymphocytes % (Manual) Monocytes % (Manual) Eosinophils % (Manual) Basophils % (Manual) Nucleated RBC % Seg Neutrophils # Seg Neutrophils # Man Lymphocytes # (Manual) Monocytes # (Manual) Eosinophils # (Manual) Basophils # (Manual) PT INR Fibrinogen dRVVT Confirm Interp Factor V Activity POC ABG pH POC ABG pCO2 POC ABG pO2 ABG pO2 ABG HCO3 ABG Base Excess ABG Hemoglobin Oxyhemoglobin Sodium Potassium Chloride Carbon Dioxide BUN 80 H Creatinine 1.4 H Glucose 106 H POC Glucose 106 H Lactic Acid Calcium Phosphorus Magnesium Direct Bilirubin AST ALT Alkaline Phosphatase Lactate Dehydrogenase Troponin T C-Reactive Protein Total Protein Albumin Prealbumin Triglycerides Cholesterol LDL Cholesterol Direct HDL Cholesterol PTH Intact Urine pH Urine WBC (Auto) Urine Creatinine Urine Total Protein Fluid Total Protein 3.0 L Vancomycin Trough Rheumatoid Factor Complement C4 Miscellaneous Test Crossmatch 01/13/17 01/13/17 01/13/17 12:17 15:50 17:30 WBC RBC Hgb Hct MCV MCH MCHC RDW Plt Count Lymph % (Auto) [place] % (Auto) Lymph # [place] # Baso # Seg Neutrophils % Seg Neuts % (Manual) Lymphocytes % (Manual) Monocytes % (Manual) Eosinophils % (Manual) Basophils % (Manual) Nucleated RBC % Seg Neutrophils # Seg Neutrophils # Man Lymphocytes # (Manual) Monocytes # (Manual) Eosinophils # (Manual) Basophils # (Manual) PT 15.4 H INR 1.16 H Fibrinogen dRVVT Confirm Interp Factor V Activity POC ABG pH POC ABG pCO2 POC ABG pO2 ABG pO2 ABG HCO3 ABG Base Excess ABG Hemoglobin Oxyhemoglobin Sodium Potassium Chloride Carbon Dioxide BUN Creatinine Glucose POC Glucose 168 H 110 H Lactic Acid Calcium Phosphorus Magnesium Direct Bilirubin AST ALT Alkaline Phosphatase Lactate Dehydrogenase Troponin T C-Reactive Protein Total Protein Albumin Prealbumin Triglycerides Cholesterol LDL Cholesterol Direct HDL Cholesterol PTH Intact Urine pH Urine WBC (Auto) Urine Creatinine Urine Total Protein Fluid Total Protein Vancomycin Trough Rheumatoid Factor Complement C4 Miscellaneous Test Crossmatch 01/13/17 01/14/17 01/14/17 23:42 05:24 05:30 WBC RBC Hgb Hct MCV MCH MCHC RDW Plt Count Lymph % (Auto) [place] % (Auto) Lymph # [place] # Baso # Seg Neutrophils % Seg Neuts % (Manual) Lymphocytes % (Manual) Monocytes % (Manual) Eosinophils % (Manual) Basophils % (Manual) Nucleated RBC % Seg Neutrophils # Seg Neutrophils # Man Lymphocytes # (Manual) Monocytes # (Manual) Eosinophils # (Manual) Basophils # (Manual) PT INR Fibrinogen dRVVT Confirm Interp Factor V Activity POC ABG pH POC ABG pCO2 POC ABG pO2 ABG pO2 ABG HCO3 ABG Base Excess ABG Hemoglobin Oxyhemoglobin Sodium Potassium Chloride Carbon Dioxide BUN 58 H Creatinine Glucose 114 H POC Glucose 155 H 121 H Lactic Acid Calcium Phosphorus Magnesium Direct Bilirubin AST ALT Alkaline Phosphatase Lactate Dehydrogenase Troponin T C-Reactive Protein Total Protein Albumin Prealbumin Triglycerides Cholesterol LDL Cholesterol Direct HDL Cholesterol PTH Intact Urine pH Urine WBC (Auto) Urine Creatinine Urine Total Protein Fluid Total Protein Vancomycin Trough Rheumatoid Factor Complement C4 Miscellaneous Test Crossmatch 01/14/17 01/14/17 01/15/17 12:48 17:36 00:15 WBC RBC Hgb Hct MCV MCH MCHC RDW Plt Count Lymph % (Auto) [place] % (Auto) Lymph # [place] # Baso # Seg Neutrophils % Seg Neuts % (Manual) Lymphocytes % (Manual) Monocytes % (Manual) Eosinophils % (Manual) Basophils % (Manual) Nucleated RBC % Seg Neutrophils # Seg Neutrophils # Man Lymphocytes # (Manual) Monocytes # (Manual) Eosinophils # (Manual) Basophils # (Manual) PT INR Fibrinogen dRVVT Confirm Interp Factor V Activity POC ABG pH POC ABG pCO2 POC ABG pO2 ABG pO2 ABG HCO3 ABG Base Excess ABG Hemoglobin Oxyhemoglobin Sodium Potassium Chloride Carbon Dioxide BUN Creatinine Glucose POC Glucose 130 H 135 H 132 H Lactic Acid Calcium Phosphorus Magnesium Direct Bilirubin AST ALT Alkaline Phosphatase Lactate Dehydrogenase Troponin T C-Reactive Protein Total Protein Albumin Prealbumin Triglycerides Cholesterol LDL Cholesterol Direct HDL Cholesterol PTH Intact Urine pH Urine WBC (Auto) Urine Creatinine Urine Total Protein Fluid Total Protein Vancomycin Trough Rheumatoid Factor Complement C4 Miscellaneous Test Crossmatch 01/15/17 01/15/17 01/15/17 05:01 11:55 12:45 WBC 16.2 H RBC 3.00 L Hgb 8.1 L Hct 25.4 L MCV MCH 27 L MCHC RDW 17.6 H Plt Count Lymph % (Auto) 11.7 L [place] % (Auto) 7.8 H Lymph # [place] # 1.3 H Baso # Seg Neutrophils % 80.1 H Seg Neuts % (Manual) Lymphocytes % (Manual) Monocytes % (Manual) Eosinophils % (Manual) Basophils % (Manual) Nucleated RBC % Seg Neutrophils # 13.0 H Seg Neutrophils # Man Lymphocytes # (Manual) Monocytes # (Manual) Eosinophils # (Manual) Basophils # (Manual) PT INR Fibrinogen dRVVT Confirm Interp Factor V Activity POC ABG pH POC ABG pCO2 POC ABG pO2 ABG pO2 ABG HCO3 ABG Base Excess ABG Hemoglobin Oxyhemoglobin Sodium Potassium Chloride Carbon Dioxide BUN Creatinine Glucose POC Glucose 126 H 125 H Lactic Acid Calcium Phosphorus Magnesium Direct Bilirubin AST ALT Alkaline Phosphatase Lactate Dehydrogenase Troponin T C-Reactive Protein Total Protein Albumin Prealbumin Triglycerides Cholesterol LDL Cholesterol Direct HDL Cholesterol PTH Intact Urine pH Urine WBC (Auto) Urine Creatinine Urine Total Protein Fluid Total Protein Vancomycin Trough Rheumatoid Factor Complement C4 Miscellaneous Test Crossmatch 01/15/17 01/15/17 01/15/17 12:45 17:31 23:39 WBC RBC Hgb Hct MCV MCH MCHC RDW Plt Count Lymph % (Auto) [place] % (Auto) Lymph # [place] # Baso # Seg Neutrophils % Seg Neuts % (Manual) Lymphocytes % (Manual) Monocytes % (Manual) Eosinophils % (Manual) Basophils % (Manual) Nucleated RBC % Seg Neutrophils # Seg Neutrophils # Man Lymphocytes # (Manual) Monocytes # (Manual) Eosinophils # (Manual) Basophils # (Manual) PT INR Fibrinogen dRVVT Confirm Interp Factor V Activity POC ABG pH POC ABG pCO2 POC ABG pO2 ABG pO2 ABG HCO3 ABG Base Excess ABG Hemoglobin Oxyhemoglobin Sodium 136 L Potassium Chloride Carbon Dioxide BUN 87 H Creatinine 1.7 H Glucose 108 H POC Glucose 129 H 112 H Lactic Acid Calcium Phosphorus Magnesium Direct Bilirubin AST ALT Alkaline Phosphatase Lactate Dehydrogenase Troponin T C-Reactive Protein Total Protein Albumin Prealbumin Triglycerides Cholesterol LDL Cholesterol Direct HDL Cholesterol PTH Intact Urine pH Urine WBC (Auto) Urine Creatinine Urine Total Protein Fluid Total Protein Vancomycin Trough Rheumatoid Factor Complement C4 Miscellaneous Test Crossmatch 01/16/17 01/16/17 01/16/17 05:23 11:42 12:32 WBC RBC Hgb Hct MCV MCH MCHC RDW Plt Count Lymph % (Auto) [place] % (Auto) Lymph # [place] # Baso # Seg Neutrophils % Seg Neuts % (Manual) Lymphocytes % (Manual) Monocytes % (Manual) Eosinophils % (Manual) Basophils % (Manual) Nucleated RBC % Seg Neutrophils # Seg Neutrophils # Man Lymphocytes # (Manual) Monocytes # (Manual) Eosinophils # (Manual) Basophils # (Manual) PT INR Fibrinogen dRVVT Confirm Interp Factor V Activity POC ABG pH 7.499 H POC ABG pCO2 30.9 L POC ABG pO2 51 L ABG pO2 ABG HCO3 ABG Base Excess ABG Hemoglobin Oxyhemoglobin Sodium Potassium Chloride Carbon Dioxide BUN Creatinine Glucose POC Glucose 118 H 133 H Lactic Acid Calcium Phosphorus Magnesium Direct Bilirubin AST ALT Alkaline Phosphatase Lactate Dehydrogenase Troponin T C-Reactive Protein Total Protein Albumin Prealbumin Triglycerides Cholesterol LDL Cholesterol Direct HDL Cholesterol PTH Intact Urine pH Urine WBC (Auto) Urine Creatinine Urine Total Protein Fluid Total Protein Vancomycin Trough Rheumatoid Factor Complement C4 Miscellaneous Test Crossmatch 01/16/17 01/16/17 01/16/17 17:52 23:57 Unknown WBC RBC Hgb Hct MCV MCH MCHC RDW Plt Count Lymph % (Auto) [place] % (Auto) Lymph # [place] # Baso # Seg Neutrophils % Seg Neuts % (Manual) Lymphocytes % (Manual) Monocytes % (Manual) Eosinophils % (Manual) Basophils % (Manual) Nucleated RBC % Seg Neutrophils # Seg Neutrophils # Man Lymphocytes # (Manual) Monocytes # (Manual) Eosinophils # (Manual) Basophils # (Manual) PT INR Fibrinogen dRVVT Confirm Interp Factor V Activity POC ABG pH POC ABG pCO2 POC ABG pO2 ABG pO2 ABG HCO3 ABG Base Excess ABG Hemoglobin Oxyhemoglobin Sodium 135 L Potassium Chloride Carbon Dioxide BUN 101 H Creatinine 1.8 H Glucose 117 H POC Glucose 130 H 143 H Lactic Acid Calcium Phosphorus 5.80 H Magnesium Direct Bilirubin AST ALT Alkaline Phosphatase Lactate Dehydrogenase Troponin T C-Reactive Protein Total Protein Albumin Prealbumin Triglycerides Cholesterol LDL Cholesterol Direct HDL Cholesterol PTH Intact Urine pH Urine WBC (Auto) Urine Creatinine Urine Total Protein Fluid Total Protein Vancomycin Trough Rheumatoid Factor Complement C4 Miscellaneous Test Crossmatch 01/17/17 01/17/17 01/17/17 05:30 05:46 11:49 WBC RBC Hgb Hct MCV MCH MCHC RDW Plt Count Lymph % (Auto) [place] % (Auto) Lymph # [place] # Baso # Seg Neutrophils % Seg Neuts % (Manual) Lymphocytes % (Manual) Monocytes % (Manual) Eosinophils % (Manual) Basophils % (Manual) Nucleated RBC % Seg Neutrophils # Seg Neutrophils # Man Lymphocytes # (Manual) Monocytes # (Manual) Eosinophils # (Manual) Basophils # (Manual) PT INR Fibrinogen dRVVT Confirm Interp Factor V Activity POC ABG pH POC ABG pCO2 POC ABG pO2 ABG pO2 ABG HCO3 ABG Base Excess ABG Hemoglobin Oxyhemoglobin Sodium 134 L Potassium Chloride 95.8 L Carbon Dioxide BUN 66 H Creatinine 1.3 H Glucose 138 H POC Glucose 147 H 124 H Lactic Acid Calcium Phosphorus Magnesium Direct Bilirubin AST ALT Alkaline Phosphatase 254 H Lactate Dehydrogenase Troponin T C-Reactive Protein Total Protein Albumin 1.3 L Prealbumin Triglycerides Cholesterol LDL Cholesterol Direct HDL Cholesterol PTH Intact Urine pH Urine WBC (Auto) Urine Creatinine Urine Total Protein Fluid Total Protein Vancomycin Trough Rheumatoid Factor Complement C4 Miscellaneous Test Crossmatch 01/17/17 01/17/17 01/18/17 17:30 23:41 05:15 WBC RBC Hgb Hct MCV MCH MCHC RDW Plt Count Lymph % (Auto) [place] % (Auto) Lymph # [place] # Baso # Seg Neutrophils % Seg Neuts % (Manual) Lymphocytes % (Manual) Monocytes % (Manual) Eosinophils % (Manual) Basophils % (Manual) Nucleated RBC % Seg Neutrophils # Seg Neutrophils # Man Lymphocytes # (Manual) Monocytes # (Manual) Eosinophils # (Manual) Basophils # (Manual) PT INR Fibrinogen dRVVT Confirm Interp Factor V Activity POC ABG pH POC ABG pCO2 POC ABG pO2 ABG pO2 ABG HCO3 ABG Base Excess ABG Hemoglobin Oxyhemoglobin Sodium Potassium Chloride Carbon Dioxide BUN 89 H Creatinine 1.7 H Glucose 118 H POC Glucose 137 H 119 H Lactic Acid Calcium Phosphorus Magnesium Direct Bilirubin AST ALT Alkaline Phosphatase Lactate Dehydrogenase Troponin T C-Reactive Protein Total Protein Albumin Prealbumin Triglycerides Cholesterol LDL Cholesterol Direct HDL Cholesterol PTH Intact Urine pH Urine WBC (Auto) Urine Creatinine Urine Total Protein Fluid Total Protein Vancomycin Trough Rheumatoid Factor Complement C4 Miscellaneous Test Crossmatch 01/18/17 01/18/17 01/18/17 05:19 12:16 18:11 WBC RBC Hgb Hct MCV MCH MCHC RDW Plt Count Lymph % (Auto) [place] % (Auto) Lymph # [place] # Baso # Seg Neutrophils % Seg Neuts % (Manual) Lymphocytes % (Manual) Monocytes % (Manual) Eosinophils % (Manual) Basophils % (Manual) Nucleated RBC % Seg Neutrophils # Seg Neutrophils # Man Lymphocytes # (Manual) Monocytes # (Manual) Eosinophils # (Manual) Basophils # (Manual) PT INR Fibrinogen dRVVT Confirm Interp Factor V Activity POC ABG pH POC ABG pCO2 POC ABG pO2 ABG pO2 ABG HCO3 ABG Base Excess ABG Hemoglobin Oxyhemoglobin Sodium Potassium Chloride Carbon Dioxide BUN Creatinine Glucose POC Glucose 134 H 188 H 113 H Lactic Acid Calcium Phosphorus Magnesium Direct Bilirubin AST ALT Alkaline Phosphatase Lactate Dehydrogenase Troponin T C-Reactive Protein Total Protein Albumin Prealbumin Triglycerides Cholesterol LDL Cholesterol Direct HDL Cholesterol PTH Intact Urine pH Urine WBC (Auto) Urine Creatinine Urine Total Protein Fluid Total Protein Vancomycin Trough Rheumatoid Factor Complement C4 Miscellaneous Test Crossmatch 01/19/17 01/19/17 01/19/17 00:00 05:30 05:36 WBC RBC Hgb Hct MCV MCH MCHC RDW Plt Count Lymph % (Auto) [place] % (Auto) Lymph # [place] # Baso # Seg Neutrophils % Seg Neuts % (Manual) Lymphocytes % (Manual) Monocytes % (Manual) Eosinophils % (Manual) Basophils % (Manual) Nucleated RBC % Seg Neutrophils # Seg Neutrophils # Man Lymphocytes # (Manual) Monocytes # (Manual) Eosinophils # (Manual) Basophils # (Manual) PT INR Fibrinogen dRVVT Confirm Interp Factor V Activity POC ABG pH POC ABG pCO2 POC ABG pO2 ABG pO2 ABG HCO3 ABG Base Excess ABG Hemoglobin Oxyhemoglobin Sodium Potassium Chloride Carbon Dioxide BUN 70 H Creatinine 1.5 H Glucose 121 H POC Glucose 137 H 155 H Lactic Acid Calcium Phosphorus 2.10 L D Magnesium Direct Bilirubin AST ALT Alkaline Phosphatase Lactate Dehydrogenase Troponin T C-Reactive Protein Total Protein Albumin Prealbumin Triglycerides Cholesterol LDL Cholesterol Direct HDL Cholesterol PTH Intact Urine pH Urine WBC (Auto) Urine Creatinine Urine Total Protein Fluid Total Protein Vancomycin Trough Rheumatoid Factor Complement C4 Miscellaneous Test Crossmatch 01/19/17 01/19/17 01/19/17 11:59 15:32 17:57 WBC RBC Hgb Hct MCV MCH MCHC RDW Plt Count Lymph % (Auto) [place] % (Auto) Lymph # [place] # Baso # Seg Neutrophils % Seg Neuts % (Manual) Lymphocytes % (Manual) Monocytes % (Manual) Eosinophils % (Manual) Basophils % (Manual) Nucleated RBC % Seg Neutrophils # Seg Neutrophils # Man Lymphocytes # (Manual) Monocytes # (Manual) Eosinophils # (Manual) Basophils # (Manual) PT INR Fibrinogen dRVVT Confirm Interp Factor V Activity POC ABG pH POC ABG pCO2 33.1 L POC ABG pO2 76 L ABG pO2 ABG HCO3 ABG Base Excess ABG Hemoglobin Oxyhemoglobin Sodium Potassium Chloride Carbon Dioxide BUN Creatinine Glucose POC Glucose 156 H 129 H Lactic Acid Calcium Phosphorus Magnesium Direct Bilirubin AST ALT Alkaline Phosphatase Lactate Dehydrogenase Troponin T C-Reactive Protein Total Protein Albumin Prealbumin Triglycerides Cholesterol LDL Cholesterol Direct HDL Cholesterol PTH Intact Urine pH Urine WBC (Auto) Urine Creatinine Urine Total Protein Fluid Total Protein Vancomycin Trough Rheumatoid Factor Complement C4 Miscellaneous Test Crossmatch 01/19/17 01/20/17 01/20/17 23:49 04:00 05:21 WBC RBC Hgb Hct MCV MCH MCHC RDW Plt Count Lymph % (Auto) [place] % (Auto) Lymph # [place] # Baso # Seg Neutrophils % Seg Neuts % (Manual) Lymphocytes % (Manual) Monocytes % (Manual) Eosinophils % (Manual) Basophils % (Manual) Nucleated RBC % Seg Neutrophils # Seg Neutrophils # Man Lymphocytes # (Manual) Monocytes # (Manual) Eosinophils # (Manual) Basophils # (Manual) PT INR Fibrinogen dRVVT Confirm Interp Factor V Activity POC ABG pH POC ABG pCO2 POC ABG pO2 ABG pO2 ABG HCO3 ABG Base Excess ABG Hemoglobin Oxyhemoglobin Sodium Potassium Chloride Carbon Dioxide BUN 96 H Creatinine 1.9 H Glucose 106 H POC Glucose 125 H 130 H Lactic Acid Calcium Phosphorus 2.40 L Magnesium Direct Bilirubin AST ALT Alkaline Phosphatase Lactate Dehydrogenase Troponin T C-Reactive Protein Total Protein Albumin Prealbumin Triglycerides Cholesterol LDL Cholesterol Direct HDL Cholesterol PTH Intact Urine pH Urine WBC (Auto) Urine Creatinine Urine Total Protein Fluid Total Protein Vancomycin Trough Rheumatoid Factor Complement C4 Miscellaneous Test Crossmatch 01/20/17 01/20/17 01/20/17 11:58 12:17 17:26 WBC RBC Hgb Hct MCV MCH MCHC RDW Plt Count Lymph % (Auto) [place] % (Auto) Lymph # [place] # Baso # Seg Neutrophils % Seg Neuts % (Manual) Lymphocytes % (Manual) Monocytes % (Manual) Eosinophils % (Manual) Basophils % (Manual) Nucleated RBC % Seg Neutrophils # Seg Neutrophils # Man Lymphocytes # (Manual) Monocytes # (Manual) Eosinophils # (Manual) Basophils # (Manual) PT INR Fibrinogen dRVVT Confirm Interp Factor V Activity POC ABG pH POC ABG pCO2 POC ABG pO2 70 L ABG pO2 ABG HCO3 ABG Base Excess ABG Hemoglobin Oxyhemoglobin Sodium Potassium Chloride Carbon Dioxide BUN Creatinine Glucose POC Glucose 118 H 154 H Lactic Acid Calcium Phosphorus Magnesium Direct Bilirubin AST ALT Alkaline Phosphatase Lactate Dehydrogenase Troponin T C-Reactive Protein Total Protein Albumin Prealbumin Triglycerides Cholesterol LDL Cholesterol Direct HDL Cholesterol PTH Intact Urine pH Urine WBC (Auto) Urine Creatinine Urine Total Protein Fluid Total Protein Vancomycin Trough Rheumatoid Factor Complement C4 Miscellaneous Test Crossmatch 01/21/17 01/21/17 01/21/17 04:00 04:56 11:46 WBC RBC Hgb Hct MCV MCH MCHC RDW Plt Count Lymph % (Auto) [place] % (Auto) Lymph # [place] # Baso # Seg Neutrophils % Seg Neuts % (Manual) Lymphocytes % (Manual) Monocytes % (Manual) Eosinophils % (Manual) Basophils % (Manual) Nucleated RBC % Seg Neutrophils # Seg Neutrophils # Man Lymphocytes # (Manual) Monocytes # (Manual) Eosinophils # (Manual) Basophils # (Manual) PT INR Fibrinogen dRVVT Confirm Interp Factor V Activity POC ABG pH POC ABG pCO2 POC ABG pO2 ABG pO2 ABG HCO3 ABG Base Excess ABG Hemoglobin Oxyhemoglobin Sodium Potassium 3.5 L Chloride 97.4 L Carbon Dioxide BUN 66 H Creatinine 1.4 H Glucose POC Glucose 116 H 106 H Lactic Acid Calcium Phosphorus 2.10 L Magnesium Direct Bilirubin AST ALT Alkaline Phosphatase Lactate Dehydrogenase Troponin T C-Reactive Protein Total Protein Albumin Prealbumin Triglycerides Cholesterol LDL Cholesterol Direct HDL Cholesterol PTH Intact Urine pH Urine WBC (Auto) Urine Creatinine Urine Total Protein Fluid Total Protein Vancomycin Trough Rheumatoid Factor Complement C4 Miscellaneous Test Crossmatch 01/21/17 01/21/17 01/22/17 17:25 23:49 05:35 WBC RBC Hgb Hct MCV MCH MCHC RDW Plt Count Lymph % (Auto) [place] % (Auto) Lymph # [place] # Baso # Seg Neutrophils % Seg Neuts % (Manual) Lymphocytes % (Manual) Monocytes % (Manual) Eosinophils % (Manual) Basophils % (Manual) Nucleated RBC % Seg Neutrophils # Seg Neutrophils # Man Lymphocytes # (Manual) Monocytes # (Manual) Eosinophils # (Manual) Basophils # (Manual) PT INR Fibrinogen dRVVT Confirm Interp Factor V Activity POC ABG pH POC ABG pCO2 POC ABG pO2 ABG pO2 ABG HCO3 ABG Base Excess ABG Hemoglobin Oxyhemoglobin Sodium Potassium Chloride Carbon Dioxide BUN Creatinine Glucose POC Glucose 106 H 133 H 107 H Lactic Acid Calcium Phosphorus Magnesium Direct Bilirubin AST ALT Alkaline Phosphatase Lactate Dehydrogenase Troponin T C-Reactive Protein Total Protein Albumin Prealbumin Triglycerides Cholesterol LDL Cholesterol Direct HDL Cholesterol PTH Intact Urine pH Urine WBC (Auto) Urine Creatinine Urine Total Protein Fluid Total Protein Vancomycin Trough Rheumatoid Factor Complement C4 Miscellaneous Test Crossmatch 1201/22/17 01/22/17 07:20 07:20 11:31 WBC RBC 2.75 L Hgb 7.5 L Hct 22.7 L MCV MCH 27 L MCHC RDW 17.5 H Plt Count Lymph % (Auto) [place] % (Auto) Lymph # [place] # Baso # Seg Neutrophils % Seg Neuts % (Manual) Lymphocytes % (Manual) Monocytes % (Manual) Eosinophils % (Manual) Basophils % (Manual) Nucleated RBC % Seg Neutrophils # Seg Neutrophils # Man Lymphocytes # (Manual) Monocytes # (Manual) Eosinophils # (Manual) Basophils # (Manual) PT INR Fibrinogen dRVVT Confirm Interp Factor V Activity POC ABG pH POC ABG pCO2 POC ABG pO2 ABG pO2 ABG HCO3 ABG Base Excess ABG Hemoglobin Oxyhemoglobin Sodium Potassium 3.3 L Chloride Carbon Dioxide BUN 42 H Creatinine Glucose 105 H POC Glucose 124 H Lactic Acid Calcium Phosphorus 1.70 L Magnesium Direct Bilirubin AST ALT Alkaline Phosphatase Lactate Dehydrogenase Troponin T C-Reactive Protein Total Protein Albumin Prealbumin Triglycerides Cholesterol LDL Cholesterol Direct HDL Cholesterol PTH Intact Urine pH Urine WBC (Auto) Urine Creatinine Urine Total Protein Fluid Total Protein Vancomycin Trough Rheumatoid Factor Complement C4 Miscellaneous Test Crossmatch 01/22/17 01/22/17 01/23/17 17:16 23:35 05:35 WBC RBC Hgb Hct MCV MCH MCHC RDW Plt Count Lymph % (Auto) [place] % (Auto) Lymph # [place] # Baso # Seg Neutrophils % Seg Neuts % (Manual) Lymphocytes % (Manual) Monocytes % (Manual) Eosinophils % (Manual) Basophils % (Manual) Nucleated RBC % Seg Neutrophils # Seg Neutrophils # Man Lymphocytes # (Manual) Monocytes # (Manual) Eosinophils # (Manual) Basophils # (Manual) PT INR Fibrinogen dRVVT Confirm Interp Factor V Activity POC ABG pH POC ABG pCO2 POC ABG pO2 ABG pO2 ABG HCO3 ABG Base Excess ABG Hemoglobin Oxyhemoglobin Sodium Potassium Chloride Carbon Dioxide BUN Creatinine Glucose POC Glucose 135 H 120 H 111 H Lactic Acid Calcium Phosphorus Magnesium Direct Bilirubin AST ALT Alkaline Phosphatase Lactate Dehydrogenase Troponin T C-Reactive Protein Total Protein Albumin Prealbumin Triglycerides Cholesterol LDL Cholesterol Direct HDL Cholesterol PTH Intact Urine pH Urine WBC (Auto) Urine Creatinine Urine Total Protein Fluid Total Protein Vancomycin Trough Rheumatoid Factor Complement C4 Miscellaneous Test Crossmatch 01/23/17 01/23/17 01/23/17 06:10 17:27 23:44 WBC RBC Hgb Hct MCV MCH MCHC RDW Plt Count Lymph % (Auto) [place] % (Auto) Lymph # [place] # Baso # Seg Neutrophils % Seg Neuts % (Manual) Lymphocytes % (Manual) Monocytes % (Manual) Eosinophils % (Manual) Basophils % (Manual) Nucleated RBC % Seg Neutrophils # Seg Neutrophils # Man Lymphocytes # (Manual) Monocytes # (Manual) Eosinophils # (Manual) Basophils # (Manual) PT INR Fibrinogen dRVVT Confirm Interp Factor V Activity POC ABG pH POC ABG pCO2 POC ABG pO2 ABG pO2 ABG HCO3 ABG Base Excess ABG Hemoglobin Oxyhemoglobin Sodium Potassium 3.3 L Chloride Carbon Dioxide BUN 66 H Creatinine 1.3 H Glucose 109 H POC Glucose 120 H 115 H Lactic Acid Calcium Phosphorus 2.20 L D Magnesium Direct Bilirubin AST ALT Alkaline Phosphatase Lactate Dehydrogenase Troponin T C-Reactive Protein Total Protein Albumin Prealbumin Triglycerides Cholesterol LDL Cholesterol Direct HDL Cholesterol PTH Intact Urine pH Urine WBC (Auto) Urine Creatinine Urine Total Protein Fluid Total Protein Vancomycin Trough Rheumatoid Factor Complement C4 Miscellaneous Test Crossmatch 01/24/17 01/24/17 01/24/17 05:19 05:50 12:19 WBC RBC Hgb Hct MCV MCH MCHC RDW Plt Count Lymph % (Auto) [place] % (Auto) Lymph # [place] # Baso # Seg Neutrophils % Seg Neuts % (Manual) Lymphocytes % (Manual) Monocytes % (Manual) Eosinophils % (Manual) Basophils % (Manual) Nucleated RBC % Seg Neutrophils # Seg Neutrophils # Man Lymphocytes # (Manual) Monocytes # (Manual) Eosinophils # (Manual) Basophils # (Manual) PT INR Fibrinogen dRVVT Confirm Interp Factor V Activity POC ABG pH POC ABG pCO2 POC ABG pO2 ABG pO2 ABG HCO3 ABG Base Excess ABG Hemoglobin Oxyhemoglobin Sodium Potassium Chloride Carbon Dioxide BUN 47 H Creatinine Glucose 117 H POC Glucose 126 H 119 H Lactic Acid Calcium Phosphorus 2.30 L Magnesium 1.60 L Direct Bilirubin AST ALT Alkaline Phosphatase Lactate Dehydrogenase Troponin T C-Reactive Protein Total Protein Albumin Prealbumin Triglycerides Cholesterol LDL Cholesterol Direct HDL Cholesterol PTH Intact Urine pH Urine WBC (Auto) Urine Creatinine Urine Total Protein Fluid Total Protein Vancomycin Trough Rheumatoid Factor Complement C4 Miscellaneous Test Crossmatch 01/24/17 01/25/17 01/25/17 17:08 00:37 04:00 WBC RBC Hgb Hct MCV MCH MCHC RDW Plt Count Lymph % (Auto) [place] % (Auto) Lymph # [place] # Baso # Seg Neutrophils % Seg Neuts % (Manual) Lymphocytes % (Manual) Monocytes % (Manual) Eosinophils % (Manual) Basophils % (Manual) Nucleated RBC % Seg Neutrophils # Seg Neutrophils # Man Lymphocytes # (Manual) Monocytes # (Manual) Eosinophils # (Manual) Basophils # (Manual) PT INR Fibrinogen dRVVT Confirm Interp Factor V Activity POC ABG pH POC ABG pCO2 POC ABG pO2 ABG pO2 ABG HCO3 ABG Base Excess ABG Hemoglobin Oxyhemoglobin Sodium Potassium Chloride Carbon Dioxide BUN 72 H Creatinine 1.3 H Glucose POC Glucose 127 H 110 H Lactic Acid Calcium Phosphorus Magnesium Direct Bilirubin AST ALT Alkaline Phosphatase Lactate Dehydrogenase Troponin T C-Reactive Protein Total Protein Albumin Prealbumin Triglycerides Cholesterol LDL Cholesterol Direct HDL Cholesterol PTH Intact Urine pH Urine WBC (Auto) Urine Creatinine Urine Total Protein Fluid Total Protein Vancomycin Trough Rheumatoid Factor Complement C4 Miscellaneous Test Crossmatch 01/25/17 01/25/17 01/25/17 04:00 11:15 13:05 WBC RBC 2.49 L Hgb 6.7 L Hct 20.9 L MCV MCH 27 L MCHC RDW 18.8 H Plt Count Lymph % (Auto) [place] % (Auto) 10.1 H Lymph # [place] # 1.0 H Baso # Seg Neutrophils % Seg Neuts % (Manual) Lymphocytes % (Manual) Monocytes % (Manual) Eosinophils % (Manual) Basophils % (Manual) Nucleated RBC % Seg Neutrophils # Seg Neutrophils # Man Lymphocytes # (Manual) Monocytes # (Manual) Eosinophils # (Manual) Basophils # (Manual) PT INR Fibrinogen dRVVT Confirm Interp Factor V Activity POC ABG pH POC ABG pCO2 POC ABG pO2 ABG pO2 ABG HCO3 ABG Base Excess ABG Hemoglobin Oxyhemoglobin Sodium Potassium Chloride Carbon Dioxide BUN Creatinine Glucose POC Glucose 128 H Lactic Acid Calcium Phosphorus Magnesium Direct Bilirubin AST ALT Alkaline Phosphatase Lactate Dehydrogenase Troponin T C-Reactive Protein Total Protein Albumin Prealbumin Triglycerides Cholesterol LDL Cholesterol Direct HDL Cholesterol PTH Intact Urine pH Urine WBC (Auto) Urine Creatinine Urine Total Protein Fluid Total Protein Vancomycin Trough Rheumatoid Factor Complement C4 Miscellaneous Test Crossmatch See Detail 01/25/17 01/25/17 01/26/17 18:02 23:07 01:20 WBC RBC Hgb Hct MCV MCH MCHC RDW Plt Count Lymph % (Auto) [place] % (Auto) Lymph # [place] # Baso # Seg Neutrophils % Seg Neuts % (Manual) Lymphocytes % (Manual) Monocytes % (Manual) Eosinophils % (Manual) Basophils % (Manual) Nucleated RBC % Seg Neutrophils # Seg Neutrophils # Man Lymphocytes # (Manual) Monocytes # (Manual) Eosinophils # (Manual) Basophils # (Manual) PT INR Fibrinogen dRVVT Confirm Interp Factor V Activity POC ABG pH POC ABG pCO2 POC ABG pO2 ABG pO2 ABG HCO3 ABG Base Excess ABG Hemoglobin Oxyhemoglobin Sodium Potassium Chloride Carbon Dioxide BUN Creatinine Glucose POC Glucose 120 H 123 H 112 H Lactic Acid Calcium Phosphorus Magnesium Direct Bilirubin AST ALT Alkaline Phosphatase Lactate Dehydrogenase Troponin T C-Reactive Protein Total Protein Albumin Prealbumin Triglycerides Cholesterol LDL Cholesterol Direct HDL Cholesterol PTH Intact Urine pH Urine WBC (Auto) Urine Creatinine Urine Total Protein Fluid Total Protein Vancomycin Trough Rheumatoid Factor Complement C4 Miscellaneous Test Crossmatch 01/26/17 01/26/17 01/26/17 04:20 04:20 11:23 WBC 13.1 H RBC 3.28 L Hgb 9.0 L Hct 26.9 L D MCV MCH 27 L MCHC RDW 17.2 H Plt Count Lymph % (Auto) [place] % (Auto) 9.0 H Lymph # [place] # 1.2 H Baso # Seg Neutrophils % 73.1 H Seg Neuts % (Manual) Lymphocytes % (Manual) Monocytes % (Manual) Eosinophils % (Manual) Basophils % (Manual) Nucleated RBC % Seg Neutrophils # 9.6 H Seg Neutrophils # Man Lymphocytes # (Manual) Monocytes # (Manual) Eosinophils # (Manual) Basophils # (Manual) PT INR Fibrinogen dRVVT Confirm Interp Factor V Activity POC ABG pH POC ABG pCO2 POC ABG pO2 ABG pO2 ABG HCO3 ABG Base Excess ABG Hemoglobin Oxyhemoglobin Sodium Potassium Chloride Carbon Dioxide BUN 51 H Creatinine Glucose 117 H POC Glucose 125 H Lactic Acid Calcium Phosphorus Magnesium Direct Bilirubin AST ALT Alkaline Phosphatase Lactate Dehydrogenase Troponin T C-Reactive Protein Total Protein Albumin Prealbumin Triglycerides Cholesterol LDL Cholesterol Direct HDL Cholesterol PTH Intact Urine pH Urine WBC (Auto) Urine Creatinine Urine Total Protein Fluid Total Protein Vancomycin Trough Rheumatoid Factor Complement C4 Miscellaneous Test Crossmatch 01/26/17 01/27/17 01/27/17 17:11 00:30 04:00 WBC RBC Hgb Hct MCV MCH MCHC RDW Plt Count Lymph % (Auto) [place] % (Auto) Lymph # [place] # Baso # Seg Neutrophils % Seg Neuts % (Manual) Lymphocytes % (Manual) Monocytes % (Manual) Eosinophils % (Manual) Basophils % (Manual) Nucleated RBC % Seg Neutrophils # Seg Neutrophils # Man Lymphocytes # (Manual) Monocytes # (Manual) Eosinophils # (Manual) Basophils # (Manual) PT INR Fibrinogen dRVVT Confirm Interp Factor V Activity POC ABG pH POC ABG pCO2 POC ABG pO2 ABG pO2 ABG HCO3 ABG Base Excess ABG Hemoglobin Oxyhemoglobin Sodium Potassium Chloride 97.7 L Carbon Dioxide 21 L BUN 79 H Creatinine 1.7 H D Glucose 112 H POC Glucose 133 H 135 H Lactic Acid Calcium Phosphorus 5.00 H D Magnesium Direct Bilirubin AST ALT Alkaline Phosphatase Lactate Dehydrogenase Troponin T C-Reactive Protein Total Protein Albumin Prealbumin Triglycerides Cholesterol LDL Cholesterol Direct HDL Cholesterol PTH Intact Urine pH Urine WBC (Auto) Urine Creatinine Urine Total Protein Fluid Total Protein Vancomycin Trough Rheumatoid Factor Complement C4 Miscellaneous Test Crossmatch 01/27/17 01/27/17 01/27/17 05:12 12:18 17:25 WBC RBC Hgb Hct MCV MCH MCHC RDW Plt Count Lymph % (Auto) [place] % (Auto) Lymph # [place] # Baso # Seg Neutrophils % Seg Neuts % (Manual) Lymphocytes % (Manual) Monocytes % (Manual) Eosinophils % (Manual) Basophils % (Manual) Nucleated RBC % Seg Neutrophils # Seg Neutrophils # Man Lymphocytes # (Manual) Monocytes # (Manual) Eosinophils # (Manual) Basophils # (Manual) PT INR Fibrinogen dRVVT Confirm Interp Factor V Activity POC ABG pH POC ABG pCO2 POC ABG pO2 ABG pO2 ABG HCO3 ABG Base Excess ABG Hemoglobin Oxyhemoglobin Sodium Potassium Chloride Carbon Dioxide BUN Creatinine Glucose POC Glucose 116 H 153 H 152 H Lactic Acid Calcium Phosphorus Magnesium Direct Bilirubin AST ALT Alkaline Phosphatase Lactate Dehydrogenase Troponin T C-Reactive Protein Total Protein Albumin Prealbumin Triglycerides Cholesterol LDL Cholesterol Direct HDL Cholesterol PTH Intact Urine pH Urine WBC (Auto) Urine Creatinine Urine Total Protein Fluid Total Protein Vancomycin Trough Rheumatoid Factor Complement C4 Miscellaneous Test Crossmatch 01/27/17 01/28/17 01/28/17 23:42 04:00 04:00 WBC 14.4 H RBC 2.82 L Hgb 7.4 L Hct 23.5 L MCV MCH 26 L MCHC RDW 17.6 H Plt Count Lymph % (Auto) 10.2 L [place] % (Auto) 11.0 H Lymph # [place] # 1.6 H Baso # Seg Neutrophils % 78.0 H Seg Neuts % (Manual) Lymphocytes % (Manual) Monocytes % (Manual) Eosinophils % (Manual) Basophils % (Manual) Nucleated RBC % Seg Neutrophils # 11.3 H Seg Neutrophils # Man Lymphocytes # (Manual) Monocytes # (Manual) Eosinophils # (Manual) Basophils # (Manual) PT INR Fibrinogen dRVVT Confirm Interp Factor V Activity POC ABG pH POC ABG pCO2 POC ABG pO2 ABG pO2 ABG HCO3 ABG Base Excess ABG Hemoglobin Oxyhemoglobin Sodium Potassium Chloride Carbon Dioxide BUN 55 H Creatinine 1.3 H Glucose 114 H POC Glucose 121 H Lactic Acid Calcium Phosphorus Magnesium Direct Bilirubin AST ALT Alkaline Phosphatase Lactate Dehydrogenase Troponin T C-Reactive Protein Total Protein Albumin 1.4 L Prealbumin Triglycerides Cholesterol LDL Cholesterol Direct HDL Cholesterol PTH Intact Urine pH Urine WBC (Auto) Urine Creatinine Urine Total Protein Fluid Total Protein Vancomycin Trough Rheumatoid Factor Complement C4 Miscellaneous Test Crossmatch 01/28/17 01/28/17 01/29/17 04:59 12:30 00:02 WBC RBC Hgb Hct MCV MCH MCHC RDW Plt Count Lymph % (Auto) [place] % (Auto) Lymph # [place] # Baso # Seg Neutrophils % Seg Neuts % (Manual) Lymphocytes % (Manual) Monocytes % (Manual) Eosinophils % (Manual) Basophils % (Manual) Nucleated RBC % Seg Neutrophils # Seg Neutrophils # Man Lymphocytes # (Manual) Monocytes # (Manual) Eosinophils # (Manual) Basophils # (Manual) PT INR Fibrinogen dRVVT Confirm Interp Factor V Activity POC ABG pH POC ABG pCO2 POC ABG pO2 ABG pO2 ABG HCO3 ABG Base Excess ABG Hemoglobin Oxyhemoglobin Sodium Potassium Chloride Carbon Dioxide BUN Creatinine Glucose POC Glucose 126 H 119 H 138 H Lactic Acid Calcium Phosphorus Magnesium Direct Bilirubin AST ALT Alkaline Phosphatase Lactate Dehydrogenase Troponin T C-Reactive Protein Total Protein Albumin Prealbumin Triglycerides Cholesterol LDL Cholesterol Direct HDL Cholesterol PTH Intact Urine pH Urine WBC (Auto) Urine Creatinine Urine Total Protein Fluid Total Protein Vancomycin Trough Rheumatoid Factor Complement C4 Miscellaneous Test Crossmatch 01/29/17 01/29/17 01/29/17 04:58 06:15 11:35 WBC RBC Hgb Hct MCV MCH MCHC RDW Plt Count Lymph % (Auto) [place] % (Auto) Lymph # [place] # Baso # Seg Neutrophils % Seg Neuts % (Manual) Lymphocytes % (Manual) Monocytes % (Manual) Eosinophils % (Manual) Basophils % (Manual) Nucleated RBC % Seg Neutrophils # Seg Neutrophils # Man Lymphocytes # (Manual) Monocytes # (Manual) Eosinophils # (Manual) Basophils # (Manual) PT INR Fibrinogen dRVVT Confirm Interp Factor V Activity POC ABG pH POC ABG pCO2 POC ABG pO2 ABG pO2 ABG HCO3 ABG Base Excess ABG Hemoglobin Oxyhemoglobin Sodium Potassium Chloride Carbon Dioxide BUN 85 H Creatinine 1.7 H Glucose 105 H POC Glucose 114 H 110 H Lactic Acid Calcium Phosphorus Magnesium 2.40 H Direct Bilirubin AST ALT Alkaline Phosphatase Lactate Dehydrogenase Troponin T C-Reactive Protein Total Protein Albumin Prealbumin Triglycerides Cholesterol LDL Cholesterol Direct HDL Cholesterol PTH Intact Urine pH Urine WBC (Auto) Urine Creatinine Urine Total Protein Fluid Total Protein Vancomycin Trough Rheumatoid Factor Complement C4 Miscellaneous Test Crossmatch 01/29/17 01/29/17 01/30/17 18:24 23:41 05:12 WBC RBC Hgb Hct MCV MCH MCHC RDW Plt Count Lymph % (Auto) [place] % (Auto) Lymph # [place] # Baso # Seg Neutrophils % Seg Neuts % (Manual) Lymphocytes % (Manual) Monocytes % (Manual) Eosinophils % (Manual) Basophils % (Manual) Nucleated RBC % Seg Neutrophils # Seg Neutrophils # Man Lymphocytes # (Manual) Monocytes # (Manual) Eosinophils # (Manual) Basophils # (Manual) PT INR Fibrinogen dRVVT Confirm Interp Factor V Activity POC ABG pH POC ABG pCO2 POC ABG pO2 ABG pO2 ABG HCO3 ABG Base Excess ABG Hemoglobin Oxyhemoglobin Sodium Potassium Chloride Carbon Dioxide BUN Creatinine Glucose POC Glucose 109 H 134 H 109 H Lactic Acid Calcium Phosphorus Magnesium Direct Bilirubin AST ALT Alkaline Phosphatase Lactate Dehydrogenase Troponin T C-Reactive Protein Total Protein Albumin Prealbumin Triglycerides Cholesterol LDL Cholesterol Direct HDL Cholesterol PTH Intact Urine pH Urine WBC (Auto) Urine Creatinine Urine Total Protein Fluid Total Protein Vancomycin Trough Rheumatoid Factor Complement C4 Miscellaneous Test Crossmatch 01/30/17 01/30/17 01/30/17 11:26 17:43 23:39 WBC RBC Hgb Hct MCV MCH MCHC RDW Plt Count Lymph % (Auto) [place] % (Auto) Lymph # [place] # Baso # Seg Neutrophils % Seg Neuts % (Manual) Lymphocytes % (Manual) Monocytes % (Manual) Eosinophils % (Manual) Basophils % (Manual) Nucleated RBC % Seg Neutrophils # Seg Neutrophils # Man Lymphocytes # (Manual) Monocytes # (Manual) Eosinophils # (Manual) Basophils # (Manual) PT INR Fibrinogen dRVVT Confirm Interp Factor V Activity POC ABG pH POC ABG pCO2 POC ABG pO2 ABG pO2 ABG HCO3 ABG Base Excess ABG Hemoglobin Oxyhemoglobin Sodium Potassium Chloride Carbon Dioxide BUN Creatinine Glucose POC Glucose 135 H 143 H 122 H Lactic Acid Calcium Phosphorus Magnesium Direct Bilirubin AST ALT Alkaline Phosphatase Lactate Dehydrogenase Troponin T C-Reactive Protein Total Protein Albumin Prealbumin Triglycerides Cholesterol LDL Cholesterol Direct HDL Cholesterol PTH Intact Urine pH Urine WBC (Auto) Urine Creatinine Urine Total Protein Fluid Total Protein Vancomycin Trough Rheumatoid Factor Complement C4 Miscellaneous Test Crossmatch 01/31/17 01/31/17 01/31/17 04:00 05:40 11:12 WBC RBC Hgb Hct MCV MCH MCHC RDW Plt Count Lymph % (Auto) [place] % (Auto) Lymph # [place] # Baso # Seg Neutrophils % Seg Neuts % (Manual) Lymphocytes % (Manual) Monocytes % (Manual) Eosinophils % (Manual) Basophils % (Manual) Nucleated RBC % Seg Neutrophils # Seg Neutrophils # Man Lymphocytes # (Manual) Monocytes # (Manual) Eosinophils # (Manual) Basophils # (Manual) PT INR Fibrinogen dRVVT Confirm Interp Factor V Activity POC ABG pH POC ABG pCO2 POC ABG pO2 ABG pO2 ABG HCO3 ABG Base Excess ABG Hemoglobin Oxyhemoglobin Sodium Potassium Chloride Carbon Dioxide BUN 78 H Creatinine 1.5 H Glucose 108 H POC Glucose 123 H Lactic Acid Calcium Phosphorus Magnesium Direct Bilirubin AST ALT Alkaline Phosphatase Lactate Dehydrogenase Troponin T C-Reactive Protein 8.10 H Total Protein Albumin Prealbumin Triglycerides Cholesterol LDL Cholesterol Direct HDL Cholesterol PTH Intact Urine pH Urine WBC (Auto) Urine Creatinine Urine Total Protein Fluid Total Protein Vancomycin Trough Rheumatoid Factor Complement C4 Miscellaneous Test Crossmatch 01/31/17 01/31/17 01/31/17 11:16 17:45 17:50 WBC RBC Hgb Hct MCV MCH MCHC RDW Plt Count Lymph % (Auto) [place] % (Auto) Lymph # [place] # Baso # Seg Neutrophils % Seg Neuts % (Manual) Lymphocytes % (Manual) Monocytes % (Manual) Eosinophils % (Manual) Basophils % (Manual) Nucleated RBC % Seg Neutrophils # Seg Neutrophils # Man Lymphocytes # (Manual) Monocytes # (Manual) Eosinophils # (Manual) Basophils # (Manual) PT INR Fibrinogen dRVVT Confirm Interp Factor V Activity POC ABG pH POC ABG pCO2 POC ABG pO2 ABG pO2 ABG HCO3 ABG Base Excess ABG Hemoglobin Oxyhemoglobin Sodium Potassium Chloride Carbon Dioxide BUN Creatinine Glucose POC Glucose 119 H 111 H Lactic Acid Calcium Phosphorus Magnesium Direct Bilirubin AST ALT Alkaline Phosphatase Lactate Dehydrogenase Troponin T C-Reactive Protein Total Protein Albumin Prealbumin Triglycerides Cholesterol LDL Cholesterol Direct HDL Cholesterol PTH Intact 6.76 L Urine pH Urine WBC (Auto) Urine Creatinine Urine Total Protein Fluid Total Protein Vancomycin Trough Rheumatoid Factor Complement C4 Miscellaneous Test Crossmatch 01/31/17 02/01/17 02/01/17 23:19 05:42 09:24 WBC RBC Hgb Hct MCV MCH MCHC RDW Plt Count Lymph % (Auto) [place] % (Auto) Lymph # [place] # Baso # Seg Neutrophils % Seg Neuts % (Manual) Lymphocytes % (Manual) Monocytes % (Manual) Eosinophils % (Manual) Basophils % (Manual) Nucleated RBC % Seg Neutrophils # Seg Neutrophils # Man Lymphocytes # (Manual) Monocytes # (Manual) Eosinophils # (Manual) Basophils # (Manual) PT INR Fibrinogen dRVVT Confirm Interp Factor V Activity POC ABG pH POC ABG pCO2 POC ABG pO2 ABG pO2 ABG HCO3 ABG Base Excess ABG Hemoglobin Oxyhemoglobin Sodium Potassium Chloride Carbon Dioxide BUN Creatinine Glucose POC Glucose 118 H 122 H Lactic Acid Calcium Phosphorus Magnesium 2.60 H Direct Bilirubin AST ALT Alkaline Phosphatase Lactate Dehydrogenase Troponin T C-Reactive Protein Total Protein Albumin Prealbumin Triglycerides Cholesterol LDL Cholesterol Direct HDL Cholesterol PTH Intact Urine pH Urine WBC (Auto) Urine Creatinine Urine Total Protein Fluid Total Protein Vancomycin Trough Rheumatoid Factor Complement C4 Miscellaneous Test Crossmatch 02/01/17 02/01/17 02/02/17 09:24 12:15 07:40 WBC RBC Hgb Hct MCV MCH MCHC RDW Plt Count Lymph % (Auto) [place] % (Auto) Lymph # [place] # Baso # Seg Neutrophils % Seg Neuts % (Manual) Lymphocytes % (Manual) Monocytes % (Manual) Eosinophils % (Manual) Basophils % (Manual) Nucleated RBC % Seg Neutrophils # Seg Neutrophils # Man Lymphocytes # (Manual) Monocytes # (Manual) Eosinophils # (Manual) Basophils # (Manual) PT INR Fibrinogen dRVVT Confirm Interp Factor V Activity POC ABG pH POC ABG pCO2 POC ABG pO2 ABG pO2 ABG HCO3 ABG Base Excess ABG Hemoglobin Oxyhemoglobin Sodium Potassium Chloride Carbon Dioxide BUN 102 H 72 H Creatinine 1.9 H 1.5 H Glucose 120 H POC Glucose 156 H Lactic Acid Calcium Phosphorus Magnesium Direct Bilirubin AST ALT Alkaline Phosphatase Lactate Dehydrogenase Troponin T C-Reactive Protein Total Protein Albumin Prealbumin Triglycerides Cholesterol LDL Cholesterol Direct HDL Cholesterol PTH Intact Urine pH Urine WBC (Auto) Urine Creatinine Urine Total Protein Fluid Total Protein Vancomycin Trough Rheumatoid Factor Complement C4 Miscellaneous Test Crossmatch 02/02/17 02/02/17 02/03/17 10:16 12:11 00:08 WBC 12.0 H RBC 3.08 L Hgb 8.3 L Hct 25.6 L MCV MCH 27 L MCHC RDW 18.2 H Plt Count Lymph % (Auto) [place] % (Auto) Lymph # [place] # Baso # Seg Neutrophils % 78.4 H Seg Neuts % (Manual) Lymphocytes % (Manual) Monocytes % (Manual) Eosinophils % (Manual) Basophils % (Manual) Nucleated RBC % Seg Neutrophils # 9.4 H Seg Neutrophils # Man Lymphocytes # (Manual) Monocytes # (Manual) Eosinophils # (Manual) Basophils # (Manual) PT INR Fibrinogen dRVVT Confirm Interp Factor V Activity POC ABG pH POC ABG pCO2 POC ABG pO2 ABG pO2 ABG HCO3 ABG Base Excess ABG Hemoglobin Oxyhemoglobin Sodium Potassium Chloride Carbon Dioxide BUN Creatinine Glucose POC Glucose 110 H 120 H Lactic Acid Calcium Phosphorus Magnesium Direct Bilirubin AST ALT Alkaline Phosphatase Lactate Dehydrogenase Troponin T C-Reactive Protein Total Protein Albumin Prealbumin Triglycerides Cholesterol LDL Cholesterol Direct HDL Cholesterol PTH Intact Urine pH Urine WBC (Auto) Urine Creatinine Urine Total Protein Fluid Total Protein Vancomycin Trough Rheumatoid Factor Complement C4 Miscellaneous Test Crossmatch 02/03/17 02/03/17 02/03/17 05:41 07:38 11:31 WBC RBC Hgb Hct MCV MCH MCHC RDW Plt Count Lymph % (Auto) [place] % (Auto) Lymph # [place] # Baso # Seg Neutrophils % Seg Neuts % (Manual) Lymphocytes % (Manual) Monocytes % (Manual) Eosinophils % (Manual) Basophils % (Manual) Nucleated RBC % Seg Neutrophils # Seg Neutrophils # Man Lymphocytes # (Manual) Monocytes # (Manual) Eosinophils # (Manual) Basophils # (Manual) PT INR Fibrinogen dRVVT Confirm Interp Factor V Activity POC ABG pH POC ABG pCO2 POC ABG pO2 ABG pO2 ABG HCO3 ABG Base Excess ABG Hemoglobin Oxyhemoglobin Sodium 134 L Potassium Chloride Carbon Dioxide 21 L BUN 91 H Creatinine 1.9 H Glucose 110 H POC Glucose 119 H 119 H Lactic Acid Calcium 10.3 H Phosphorus Magnesium Direct Bilirubin AST ALT Alkaline Phosphatase Lactate Dehydrogenase Troponin T C-Reactive Protein Total Protein Albumin Prealbumin Triglycerides Cholesterol LDL Cholesterol Direct HDL Cholesterol PTH Intact Urine pH Urine WBC (Auto) Urine Creatinine Urine Total Protein Fluid Total Protein Vancomycin Trough Rheumatoid Factor Complement C4 Miscellaneous Test Crossmatch 02/03/17 02/04/17 02/04/17 17:13 04:00 05:18 WBC RBC Hgb Hct MCV MCH MCHC RDW Plt Count Lymph % (Auto) [place] % (Auto) Lymph # [place] # Baso # Seg Neutrophils % Seg Neuts % (Manual) Lymphocytes % (Manual) Monocytes % (Manual) Eosinophils % (Manual) Basophils % (Manual) Nucleated RBC % Seg Neutrophils # Seg Neutrophils # Man Lymphocytes # (Manual) Monocytes # (Manual) Eosinophils # (Manual) Basophils # (Manual) PT INR Fibrinogen dRVVT Confirm Interp Factor V Activity POC ABG pH POC ABG pCO2 POC ABG pO2 ABG pO2 ABG HCO3 ABG Base Excess ABG Hemoglobin Oxyhemoglobin Sodium 136 L Potassium Chloride Carbon Dioxide BUN 58 H Creatinine 1.3 H Glucose 103 H POC Glucose 133 H 132 H Lactic Acid Calcium Phosphorus 2.00 L D Magnesium 1.60 L Direct Bilirubin AST ALT Alkaline Phosphatase Lactate Dehydrogenase Troponin T C-Reactive Protein Total Protein Albumin Prealbumin Triglycerides Cholesterol LDL Cholesterol Direct HDL Cholesterol PTH Intact Urine pH Urine WBC (Auto) Urine Creatinine Urine Total Protein Fluid Total Protein Vancomycin Trough Rheumatoid Factor Complement C4 Miscellaneous Test Crossmatch 02/05/17 02/05/17 02/05/17 00:01 04:00 06:42 WBC RBC Hgb Hct MCV MCH MCHC RDW Plt Count Lymph % (Auto) [place] % (Auto) Lymph # [place] # Baso # Seg Neutrophils % Seg Neuts % (Manual) Lymphocytes % (Manual) Monocytes % (Manual) Eosinophils % (Manual) Basophils % (Manual) Nucleated RBC % Seg Neutrophils # Seg Neutrophils # Man Lymphocytes # (Manual) Monocytes # (Manual) Eosinophils # (Manual) Basophils # (Manual) PT INR Fibrinogen dRVVT Confirm Interp Factor V Activity POC ABG pH POC ABG pCO2 POC ABG pO2 ABG pO2 ABG HCO3 ABG Base Excess ABG Hemoglobin Oxyhemoglobin Sodium Potassium Chloride Carbon Dioxide BUN 83 H Creatinine 1.8 H Glucose POC Glucose 119 H 110 H Lactic Acid Calcium 10.7 H Phosphorus Magnesium Direct Bilirubin AST ALT Alkaline Phosphatase Lactate Dehydrogenase Troponin T C-Reactive Protein Total Protein Albumin Prealbumin Triglycerides Cholesterol LDL Cholesterol Direct HDL Cholesterol PTH Intact Urine pH Urine WBC (Auto) Urine Creatinine Urine Total Protein Fluid Total Protein Vancomycin Trough Rheumatoid Factor Complement C4 Miscellaneous Test Crossmatch 02/05/17 02/05/17 02/05/17 09:59 11:47 23:44 WBC RBC 2.69 L Hgb 7.2 L Hct 22.5 L MCV MCH 27 L MCHC RDW 18.6 H Plt Count Lymph % (Auto) [place] % (Auto) 9.2 H Lymph # [place] # 0.9 H Baso # Seg Neutrophils % Seg Neuts % (Manual) Lymphocytes % (Manual) Monocytes % (Manual) Eosinophils % (Manual) Basophils % (Manual) Nucleated RBC % Seg Neutrophils # Seg Neutrophils # Man Lymphocytes # (Manual) Monocytes # (Manual) Eosinophils # (Manual) Basophils # (Manual) PT INR Fibrinogen dRVVT Confirm Interp Factor V Activity POC ABG pH POC ABG pCO2 POC ABG pO2 ABG pO2 ABG HCO3 ABG Base Excess ABG Hemoglobin Oxyhemoglobin Sodium Potassium Chloride Carbon Dioxide BUN Creatinine Glucose POC Glucose 130 H 123 H Lactic Acid Calcium Phosphorus Magnesium Direct Bilirubin AST ALT Alkaline Phosphatase Lactate Dehydrogenase Troponin T C-Reactive Protein Total Protein Albumin Prealbumin Triglycerides Cholesterol LDL Cholesterol Direct HDL Cholesterol PTH Intact Urine pH Urine WBC (Auto) Urine Creatinine Urine Total Protein Fluid Total Protein Vancomycin Trough Rheumatoid Factor Complement C4 Miscellaneous Test Crossmatch 02/06/17 02/06/17 02/06/17 04:45 05:58 12:01 WBC RBC Hgb Hct MCV MCH MCHC RDW Plt Count Lymph % (Auto) [place] % (Auto) Lymph # [place] # Baso # Seg Neutrophils % Seg Neuts % (Manual) Lymphocytes % (Manual) Monocytes % (Manual) Eosinophils % (Manual) Basophils % (Manual) Nucleated RBC % Seg Neutrophils # Seg Neutrophils # Man Lymphocytes # (Manual) Monocytes # (Manual) Eosinophils # (Manual) Basophils # (Manual) PT INR Fibrinogen dRVVT Confirm Interp Factor V Activity POC ABG pH POC ABG pCO2 POC ABG pO2 ABG pO2 ABG HCO3 ABG Base Excess ABG Hemoglobin Oxyhemoglobin Sodium Potassium Chloride Carbon Dioxide BUN 101 H Creatinine 2.0 H Glucose 102 H POC Glucose 115 H 132 H Lactic Acid Calcium 10.6 H Phosphorus Magnesium Direct Bilirubin AST ALT Alkaline Phosphatase 199 H Lactate Dehydrogenase Troponin T C-Reactive Protein Total Protein Albumin 1.4 L Prealbumin Triglycerides Cholesterol LDL Cholesterol Direct HDL Cholesterol PTH Intact Urine pH Urine WBC (Auto) Urine Creatinine Urine Total Protein Fluid Total Protein Vancomycin Trough Rheumatoid Factor Complement C4 Miscellaneous Test Crossmatch 02/06/17 02/06/17 02/07/17 17:41 23:32 05:04 WBC RBC Hgb Hct MCV MCH MCHC RDW Plt Count Lymph % (Auto) [place] % (Auto) Lymph # [place] # Baso # Seg Neutrophils % Seg Neuts % (Manual) Lymphocytes % (Manual) Monocytes % (Manual) Eosinophils % (Manual) Basophils % (Manual) Nucleated RBC % Seg Neutrophils # Seg Neutrophils # Man Lymphocytes # (Manual) Monocytes # (Manual) Eosinophils # (Manual) Basophils # (Manual) PT INR Fibrinogen dRVVT Confirm Interp Factor V Activity POC ABG pH POC ABG pCO2 POC ABG pO2 ABG pO2 ABG HCO3 ABG Base Excess ABG Hemoglobin Oxyhemoglobin Sodium Potassium Chloride Carbon Dioxide BUN Creatinine Glucose POC Glucose 134 H 128 H 119 H Lactic Acid Calcium Phosphorus Magnesium Direct Bilirubin AST ALT Alkaline Phosphatase Lactate Dehydrogenase Troponin T C-Reactive Protein Total Protein Albumin Prealbumin Triglycerides Cholesterol LDL Cholesterol Direct HDL Cholesterol PTH Intact Urine pH Urine WBC (Auto) Urine Creatinine Urine Total Protein Fluid Total Protein Vancomycin Trough Rheumatoid Factor Complement C4 Miscellaneous Test Crossmatch 02/07/17 02/07/17 02/07/17 06:30 11:20 17:13 WBC RBC Hgb Hct MCV MCH MCHC RDW Plt Count Lymph % (Auto) [place] % (Auto) Lymph # [place] # Baso # Seg Neutrophils % Seg Neuts % (Manual) Lymphocytes % (Manual) Monocytes % (Manual) Eosinophils % (Manual) Basophils % (Manual) Nucleated RBC % Seg Neutrophils # Seg Neutrophils # Man Lymphocytes # (Manual) Monocytes # (Manual) Eosinophils # (Manual) Basophils # (Manual) PT INR Fibrinogen dRVVT Confirm Interp Factor V Activity POC ABG pH POC ABG pCO2 POC ABG pO2 ABG pO2 ABG HCO3 ABG Base Excess ABG Hemoglobin Oxyhemoglobin Sodium Potassium 3.4 L Chloride Carbon Dioxide BUN 69 H Creatinine 1.5 H Glucose 105 H POC Glucose 117 H 110 H Lactic Acid Calcium Phosphorus Magnesium 1.50 L Direct Bilirubin AST ALT Alkaline Phosphatase Lactate Dehydrogenase Troponin T C-Reactive Protein Total Protein Albumin Prealbumin Triglycerides Cholesterol LDL Cholesterol Direct HDL Cholesterol PTH Intact Urine pH Urine WBC (Auto) Urine Creatinine Urine Total Protein Fluid Total Protein Vancomycin Trough Rheumatoid Factor Complement C4 Miscellaneous Test Crossmatch 02/07/17 02/08/17 02/08/17 20:47 04:00 11:43 WBC RBC Hgb Hct MCV MCH MCHC RDW Plt Count Lymph % (Auto) [place] % (Auto) Lymph # [place] # Baso # Seg Neutrophils % Seg Neuts % (Manual) Lymphocytes % (Manual) Monocytes % (Manual) Eosinophils % (Manual) Basophils % (Manual) Nucleated RBC % Seg Neutrophils # Seg Neutrophils # Man Lymphocytes # (Manual) Monocytes # (Manual) Eosinophils # (Manual) Basophils # (Manual) PT INR Fibrinogen dRVVT Confirm Interp Factor V Activity POC ABG pH POC ABG pCO2 POC ABG pO2 ABG pO2 ABG HCO3 ABG Base Excess ABG Hemoglobin Oxyhemoglobin Sodium Potassium Chloride Carbon Dioxide BUN 86 H Creatinine 1.7 H Glucose POC Glucose 115 H 122 H Lactic Acid Calcium Phosphorus Magnesium 1.60 L Direct Bilirubin AST ALT Alkaline Phosphatase Lactate Dehydrogenase Troponin T C-Reactive Protein Total Protein Albumin Prealbumin Triglycerides Cholesterol LDL Cholesterol Direct HDL Cholesterol PTH Intact Urine pH Urine WBC (Auto) Urine Creatinine Urine Total Protein Fluid Total Protein Vancomycin Trough Rheumatoid Factor Complement C4 Miscellaneous Test Crossmatch 02/08/17 17:36 WBC RBC Hgb Hct MCV MCH MCHC RDW Plt Count Lymph % (Auto) [place] % (Auto) Lymph # [place] # Baso # Seg Neutrophils % Seg Neuts % (Manual) Lymphocytes % (Manual) Monocytes % (Manual) Eosinophils % (Manual) Basophils % (Manual) Nucleated RBC % Seg Neutrophils # Seg Neutrophils # Man Lymphocytes # (Manual) Monocytes # (Manual) Eosinophils # (Manual) Basophils # (Manual) PT INR Fibrinogen dRVVT Confirm Interp Factor V Activity POC ABG pH POC ABG pCO2 POC ABG pO2 ABG pO2 ABG HCO3 ABG Base Excess ABG Hemoglobin Oxyhemoglobin Sodium Potassium Chloride Carbon Dioxide BUN Creatinine Glucose POC Glucose 125 H Lactic Acid Calcium Phosphorus Magnesium Direct Bilirubin AST ALT Alkaline Phosphatase Lactate Dehydrogenase Troponin T C-Reactive Protein Total Protein Albumin Prealbumin Triglycerides Cholesterol LDL Cholesterol Direct HDL Cholesterol PTH Intact Urine pH Urine WBC (Auto) Urine Creatinine Urine Total Protein Fluid Total Protein Vancomycin Trough Rheumatoid Factor Complement C4 Miscellaneous Test Crossmatch Allied health notes reviewed: RT (Has been on PS 04/07, no desaturations today)
[2017-02-08] MEDS ORDERED: INTRALIPID 20% 250 ML IV SCH (20:00)
[2017-02-08] MEDS ORDERED: TPN ADULT IV SCH (20:00)
[2017-02-08] MEDS: TAZICEF IV SCH (21:07)
[2017-02-08] MEDS: NACL 0.9% IV SCH (21:07)
[2017-02-09] MEDS: HumuLIN R SUB-Q SCH ×4 (01:49→18:03)
[2017-02-09] MEDS: REGLAN IV SCH ×3 (06:43→21:09)
[2017-02-09] MEDS: DUONEB *Not for PRN Use IH SCH ×3 (08:47→19:31)
[2017-02-09] MEDS: HEPARIN SUB-Q SCH ×2 (09:36→21:10)
[2017-02-09] MEDS: MAG-OX PO SCH (09:37)
[2017-02-09] MEDS: PROTONIX FEEDTUBE SCH (09:37)
[2017-02-09] MEDS: ROBINUL PO SCH ×2 (09:37→21:10)
--- NOTE | 2017-02-09 12:39 | Progress Note ---
Assessment and Plan Patient is 46-year-old woman with a history of hypertension, diabetes mellitus, asthma, hyperlipidemia, chronic kidney disease and anxiety, who was brought in by family because she couldn't get her words out, her face was also twisted, she was admitted for acute CVA and accelerated hypertension, she had a hx of poor adherence with her medications, and uncontrolled hypertension. Patient's SBP on admission was noted be greater than 260. TPA was started but this it was discontinued after 5 minutes because her blood pressure became uncontrolled. The TPA was not initiated again because the patient was outside the TPA window. Patient has had a prolonged hospital stay complicated with recurrent severe sepsis. Patient with most recent event also status post cardiac arrest on 11/21/16 , with CPR and ROSC. Acute on chronic Hypoxemic Respiratory Failure Sepsis -recurrent s/p tracheostomy Hypertension Atrial Fibrillation with RVR Acute encephalopathy s/p CVA Oropharyngeal dysphagia Enterococcal bacteremia Sacral Decubitus Ulcer- unstageable s/p debridement Anemia Obesity JUANITA now on hemodialysis Enteric Fistula - VAP bundle addressed - continue NGT to LIS - continue wound care/wound vac per WCT - Vasopressor if MAP falls < 65mmHg - keep on with daily PSV trials and / or T-piece as tolerated - continue TPN administration (continue TPN; NPO except for meds) - continue airway clearance and secretion management - continue to wean FiO2 for sats > 94% - continue to monitor hemodynamics closely - continue HD/UF per nephrology - continue to follow electrolytes and correct as necessary - continue GI & VTE prophylaxis Transfuse 1 unit PRBC as needed to keep HgH>7g/dL .....she remains critically ill on life sustaining interventions including MVS and at risk for further deterioration including ...retirement prognosis remains poor - Patient Problems (1) Acute respiratory failure with hypoxia Current Visit: Yes Status: Acute (2) Acute blood loss anemia Current Visit: Yes Status: Resolved (3) Acute CVA (cerebrovascular accident) Current Visit: Yes Status: Acute (4) Chronic renal insufficiency Current Visit: Yes Status: Acute (5) Uncontrolled hypertension Current Visit: Yes Status: Acute (6) Leukocytosis (leucocytosis) Current Visit: Yes Status: Acute Qualifiers: Leukocytosis type: leukemoid reaction Qualified Code(s): D72.823 - Leukemoid reaction (7) Dislodged gastrostomy tube Current Visit: Yes Status: Acute (8) Fungemia Current Visit: Yes Status: Resolved (9) Cardiopulmonary arrest with successful resuscitation Current Visit: Yes Status: Acute Subjective Date of service: 02/09/17 Principal diagnosis: Acute resp failure on MVS; S/P Acute CVA; Acute Encephalopathy; JUANITA Interval history: Patient is seen today for: Acute resp failure on MVS; S/P Acute CVA; Acute Encephalopathy; JUANITA Seen and examined at bedside; 24hour events reviewed; nursing and respiratory care staff consulted; no adverse overnight events reported to me; she remains critically ill No fevers. Currently on PSV 15/5, with tidal volumes of about 300, tachypnic at 35 Vitals, labs, medications, chart reviewed. Discussed in interdisciplinary ICU rounds Objective - Exam Narrative Exam: General appearance: somnolent non communicative, on the vent via trach in mild resp distress, no following commands Eyes: anicteric sclera, moist conjunctivae; PERRLA HENT: Atraumatic; oropharynx limited; Normal external ears. +NGT with greenish secretion Neck: +trach in place; supple, no thyromegaly or lymphadenopathy Lungs: brit coarse BS CV: tachy Abdomen: Soft, non-tender, +old PEG site no drainage. +iliostomy. Right sided Surgical site x 2 with ostomy bag draining small amount yellowish secretion Extremities: +peripheral edema Skin: sacral area wounds - wound vac in place Neuro: alert non verbal on the vent. Lines: PICC / gutierrez Vital Signs - 12hr 02/09/17 02/09/17 02/09/17 01:00 01:30 02:00 Temperature Pulse Rate 126 H 120 H 118 H Pulse Rate [ From Monitor] Pulse Rate [ Right Lower Lobe] Respiratory 26 H 14 20 Rate Respiratory Rate [Right Lower Lobe] Blood Pressure 145/85 123/75 106/65 O2 Sat by Pulse 100 Oximetry O2 Sat by Pulse Oximetry [ Assessment] 02/09/17 02/09/17 02/09/17 02:30 03:00 03:30 Temperature Pulse Rate 112 H 118 H 134 H Pulse Rate [ From Monitor] Pulse Rate [ Right Lower Lobe] Respiratory 17 22 16 Rate Respiratory Rate [Right Lower Lobe] Blood Pressure 105/65 112/77 112/77 O2 Sat by Pulse 100 100 100 Oximetry O2 Sat by Pulse Oximetry [ Assessment] 02/09/17 02/09/17 02/09/17 04:00 04:30 05:00 Temperature 98.6 F Pulse Rate 130 H 125 H 123 H Pulse Rate [ 120 H From Monitor] Pulse Rate [ Right Lower Lobe] Respiratory 20 19 16 Rate Respiratory Rate [Right Lower Lobe] Blood Pressure 160/97 160/94 160/94 O2 Sat by Pulse 100 100 100 Oximetry O2 Sat by Pulse Oximetry [ Assessment] 02/09/17 02/09/17 02/09/17 05:30 06:00 06:30 Temperature Pulse Rate 135 H 127 H 128 H Pulse Rate [ From Monitor] Pulse Rate [ Right Lower Lobe] Respiratory 16 19 18 Rate Respiratory Rate [Right Lower Lobe] Blood Pressure 160/94 137/88 137/88 O2 Sat by Pulse 100 100 100 Oximetry O2 Sat by Pulse Oximetry [ Assessment] 02/09/17 02/09/17 02/09/17 07:00 07:30 07:54 Temperature 98.9 F Pulse Rate 129 H 132 H Pulse Rate [ From Monitor] Pulse Rate [ Right Lower Lobe] Respiratory 14 14 Rate Respiratory Rate [Right Lower Lobe] Blood Pressure 137/92 137/88 O2 Sat by Pulse 100 100 Oximetry O2 Sat by Pulse Oximetry [ Assessment] 02/09/17 02/09/17 02/09/17 08:00 08:30 08:45 Temperature Pulse Rate 132 H 134 H Pulse Rate [ From Monitor] Pulse Rate [ 127 H Right Lower Lobe] Respiratory 13 18 Rate Respiratory 22 Rate [Right Lower Lobe] Blood Pressure 146/96 146/96 O2 Sat by Pulse 100 100 Oximetry O2 Sat by Pulse Oximetry [ Assessment] 02/09/17 02/09/17 02/09/17 08:56 09:00 09:01 Temperature Pulse Rate 122 H 131 H Pulse Rate [ From Monitor] Pulse Rate [ 122 H Right Lower Lobe] Respiratory 33 H 36 H Rate Respiratory 18 Rate [Right Lower Lobe] Blood Pressure 146/96 150/99 O2 Sat by Pulse 100 100 Oximetry O2 Sat by Pulse 100 Oximetry [ Assessment] 02/09/17 02/09/17 02/09/17 09:30 10:00 10:30 Temperature Pulse Rate 124 H 128 H 128 H Pulse Rate [ From Monitor] Pulse Rate [ Right Lower Lobe] Respiratory 28 H 6 L 15 Rate Respiratory Rate [Right Lower Lobe] Blood Pressure 150/99 134/89 134/89 O2 Sat by Pulse 100 100 100 Oximetry O2 Sat by Pulse Oximetry [ Assessment] 02/09/17 02/09/17 11:00 11:59 Temperature 99.1 F Pulse Rate 124 H Pulse Rate [ From Monitor] Pulse Rate [ Right Lower Lobe] Respiratory 35 H Rate Respiratory Rate [Right Lower Lobe] Blood Pressure 133/82 O2 Sat by Pulse 100 Oximetry O2 Sat by Pulse Oximetry [ Assessment] Constitutional: appears uncomfortable, other (not tracking) Eyes: non-icteric, other (tracheostomy tube in midline of neck) ENT: oropharynx moist, oropharyngeal exudate pre Neck: supple, no lymphadenopathy, no JVD, other (no thyromegaly) Effort: mildly labored Ascultation: Bilateral: clear, diminished breath sounds (bases R>L), rales, rhonchi (and referred upper airway sounds) Percussion: Right: dull (base), Bilateral: not dull Cardiovascular: regular rate and rhythm, other (no rubs / murmurs) Gastrointestinal: hypoactive bowel sounds, soft, non-tender, non-distended, other (RLQ & LUQ stomas with colostomy bags) Integumentary: decubitus ulcer (sacral; stage 4 s/p surgical debridement), other (no rash; no cellulitis; poor turgor) Extremities: no cyanosis, pulses normal, no ischemia or petechiae, edema (1+ bilaterally) Neurologic: pupils equal and round, unable to assess, other (encephalopathic) Psychiatric: other (unable to assess) CBC and BMP: 02/05/17 09:59 02/08/17 04:00 ABG, PT/INR, D-dimer: ABG POC ABG pH 7.436 (7.35-7.45) 01/20/17 12:17 ABG pH 7.450 pH Units (7.350-7.450) 12/05/16 Unknown POC ABG pCO2 35.3 (35-45) 01/20/17 12: ABG pCO2 29.6 mm Hg 12/05/16 Unknown POC ABG pO2 70 (80-105) L 01/20/17 12: ABG pO2 75.2 mm Hg (80.0-90.0) L 12/05/16 Unknown POC ABG HCO3 23.8 01/20/17 12: POC ABG Total CO2 25 01/20/17 12:17 POC ABG O2 Sat 94 01/20/17 12:17 ABG O2 Saturation 96.8 % (95.0-99.0) 12/05/16 Unknown PT/INR, D-dimer PT 15.4 Sec. (12.2-14.9) H 01/13/17 15:50 INR 1.16 (0.87-1.13) H 01/13/17 15:50 Abnormal lab findings: Abnormal Labs 09/03/16 09/03/16 09/03/16 00:03 00:10 00:10 WBC 13.9 H RBC 5.95 H Hgb Hct 44.0 H MCV 74 L MCH 22 L MCHC RDW 17.5 H Plt Count Lymph % (Auto) Hitchcock % (Auto) Lymph # Hitchcock # Baso # Seg Neutrophils % Seg Neuts % (Manual) Lymphocytes % (Manual) 54.0 H Monocytes % (Manual) Eosinophils % (Manual) Basophils % (Manual) Nucleated RBC % Seg Neutrophils # Seg Neutrophils # Man Lymphocytes # (Manual) 7.5 H Monocytes # (Manual) Eosinophils # (Manual) Basophils # (Manual) PT INR Fibrinogen dRVVT Confirm Interp Factor V Activity POC ABG pH POC ABG pCO2 POC ABG pO2 ABG pO2 ABG HCO3 ABG Base Excess ABG Hemoglobin Oxyhemoglobin Sodium Potassium 2.8 L* Chloride Carbon Dioxide 21 L BUN Creatinine 1.7 H Glucose 159 H POC Glucose 177 H Lactic Acid Calcium Phosphorus Magnesium Direct Bilirubin AST ALT Alkaline Phosphatase Lactate Dehydrogenase Troponin T C-Reactive Protein Total Protein Albumin Prealbumin Triglycerides Cholesterol LDL Cholesterol Direct HDL Cholesterol PTH Intact Urine pH Urine WBC (Auto) Urine Creatinine Urine Total Protein Fluid Total Protein Vancomycin Trough Rheumatoid Factor Complement C4 Miscellaneous Test Crossmatch 09/03/16 09/03/16 09/03/16 12:12 15:07 16:20 WBC RBC Hgb Hct MCV MCH MCHC RDW Plt Count Lymph % (Auto) Hitchcock % (Auto) Lymph # Hitchcock # Baso # Seg Neutrophils % Seg Neuts % (Manual) Lymphocytes % (Manual) Monocytes % (Manual) Eosinophils % (Manual) Basophils % (Manual) Nucleated RBC % Seg Neutrophils # Seg Neutrophils # Man Lymphocytes # (Manual) Monocytes # (Manual) Eosinophils # (Manual) Basophils # (Manual) PT INR Fibrinogen dRVVT Confirm Interp Factor V Activity POC ABG pH 7.452 H POC ABG pCO2 POC ABG pO2 ABG pO2 ABG HCO3 ABG Base Excess ABG Hemoglobin Oxyhemoglobin Sodium Potassium Chloride Carbon Dioxide BUN Creatinine Glucose POC Glucose 178 H Lactic Acid Calcium Phosphorus 2.20 L Magnesium 1.60 L Direct Bilirubin AST ALT Alkaline Phosphatase Lactate Dehydrogenase Troponin T C-Reactive Protein Total Protein Albumin Prealbumin Triglycerides Cholesterol LDL Cholesterol Direct HDL Cholesterol PTH Intact Urine pH Urine WBC (Auto) Urine Creatinine Urine Total Protein Fluid Total Protein Vancomycin Trough Rheumatoid Factor Complement C4 Miscellaneous Test Crossmatch 09/03/16 09/03/16 09/03/16 17:57 17:58 23:50 WBC RBC Hgb Hct MCV MCH MCHC RDW Plt Count Lymph % (Auto) Hitchcock % (Auto) Lymph # Hitchcock # Baso # Seg Neutrophils % Seg Neuts % (Manual) Lymphocytes % (Manual) Monocytes % (Manual) Eosinophils % (Manual) Basophils % (Manual) Nucleated RBC % Seg Neutrophils # Seg Neutrophils # Man Lymphocytes # (Manual) Monocytes # (Manual) Eosinophils # (Manual) Basophils # (Manual) PT INR Fibrinogen dRVVT Confirm Interp Factor V Activity POC ABG pH POC ABG pCO2 POC ABG pO2 ABG pO2 ABG HCO3 ABG Base Excess ABG Hemoglobin Oxyhemoglobin Sodium Potassium Chloride Carbon Dioxide BUN Creatinine Glucose POC Glucose 162 H 145 H Lactic Acid Calcium Phosphorus 2.30 L Magnesium Direct Bilirubin AST ALT Alkaline Phosphatase Lactate Dehydrogenase Troponin T C-Reactive Protein Total Protein Albumin Prealbumin Triglycerides Cholesterol LDL Cholesterol Direct HDL Cholesterol PTH Intact Urine pH Urine WBC (Auto) Urine Creatinine Urine Total Protein Fluid Total Protein Vancomycin Trough Rheumatoid Factor Complement C4 Miscellaneous Test Crossmatch 09/04/16 09/04/16 09/04/16 03:31 03:31 05:42 WBC RBC Hgb 9.7 L D Hct MCV 72 L MCH 23 L MCHC RDW 17.5 H Plt Count Lymph % (Auto) 11.1 L Hitchcock % (Auto) Lymph # Hitchcock # Baso # Seg Neutrophils % 84.3 H Seg Neuts % (Manual) Lymphocytes % (Manual) Monocytes % (Manual) Eosinophils % (Manual) Basophils % (Manual) Nucleated RBC % Seg Neutrophils # 8.9 H Seg Neutrophils # Man Lymphocytes # (Manual) Monocytes # (Manual) Eosinophils # (Manual) Basophils # (Manual) PT INR Fibrinogen dRVVT Confirm Interp Factor V Activity POC ABG pH POC ABG pCO2 POC ABG pO2 ABG pO2 ABG HCO3 ABG Base Excess ABG Hemoglobin Oxyhemoglobin Sodium 135 L Potassium 2.9 L* Chloride 97.2 L Carbon Dioxide 19 L BUN Creatinine 1.7 H Glucose 170 H POC Glucose 152 H Lactic Acid Calcium Phosphorus Magnesium Direct Bilirubin AST ALT Alkaline Phosphatase Lactate Dehydrogenase Troponin T C-Reactive Protein Total Protein Albumin Prealbumin Triglycerides 160 H Cholesterol LDL Cholesterol Direct HDL Cholesterol 31 L PTH Intact Urine pH Urine WBC (Auto) Urine Creatinine Urine Total Protein Fluid Total Protein Vancomycin Trough Rheumatoid Factor Complement C4 Miscellaneous Test Crossmatch 09/04/16 09/04/16 09/04/16 11:34 17:46 23:29 WBC RBC Hgb Hct MCV MCH MCHC RDW Plt Count Lymph % (Auto) Hitchcock % (Auto) Lymph # Hitchcock # Baso # Seg Neutrophils % Seg Neuts % (Manual) Lymphocytes % (Manual) Monocytes % (Manual) Eosinophils % (Manual) Basophils % (Manual) Nucleated RBC % Seg Neutrophils # Seg Neutrophils # Man Lymphocytes # (Manual) Monocytes # (Manual) Eosinophils # (Manual) Basophils # (Manual) PT INR Fibrinogen dRVVT Confirm Interp Factor V Activity POC ABG pH POC ABG pCO2 POC ABG pO2 ABG pO2 ABG HCO3 ABG Base Excess ABG Hemoglobin Oxyhemoglobin Sodium Potassium Chloride Carbon Dioxide BUN Creatinine Glucose POC Glucose 165 H 210 H 139 H Lactic Acid Calcium Phosphorus Magnesium Direct Bilirubin AST ALT Alkaline Phosphatase Lactate Dehydrogenase Troponin T C-Reactive Protein Total Protein Albumin Prealbumin Triglycerides Cholesterol LDL Cholesterol Direct HDL Cholesterol PTH Intact Urine pH Urine WBC (Auto) Urine Creatinine Urine Total Protein Fluid Total Protein Vancomycin Trough Rheumatoid Factor Complement C4 Miscellaneous Test Crossmatch 09/05/16 09/05/16 09/05/16 04:05 04:05 05:38 WBC RBC Hgb Hct MCV 76 L D MCH 23 L MCHC RDW 17.8 H Plt Count Lymph % (Auto) Hitchcock % (Auto) Lymph # Hitchcock # Baso # Seg Neutrophils % Seg Neuts % (Manual) Lymphocytes % (Manual) Monocytes % (Manual) Eosinophils % (Manual) Basophils % (Manual) Nucleated RBC % Seg Neutrophils # Seg Neutrophils # Man Lymphocytes # (Manual) Monocytes # (Manual) Eosinophils # (Manual) Basophils # (Manual) PT INR Fibrinogen dRVVT Confirm Interp Factor V Activity POC ABG pH POC ABG pCO2 POC ABG pO2 ABG pO2 ABG HCO3 ABG Base Excess ABG Hemoglobin Oxyhemoglobin Sodium 134 L Potassium Chloride Carbon Dioxide 18 L BUN Creatinine 1.8 H Glucose 192 H POC Glucose 175 H Lactic Acid Calcium Phosphorus Magnesium Direct Bilirubin AST ALT Alkaline Phosphatase Lactate Dehydrogenase Troponin T C-Reactive Protein Total Protein Albumin Prealbumin Triglycerides Cholesterol LDL Cholesterol Direct HDL Cholesterol PTH Intact Urine pH Urine WBC (Auto) Urine Creatinine Urine Total Protein Fluid Total Protein Vancomycin Trough Rheumatoid Factor Complement C4 Miscellaneous Test Crossmatch 09/05/16 09/05/16 09/05/16 11:38 17:48 23:22 WBC RBC Hgb Hct MCV MCH MCHC RDW Plt Count Lymph % (Auto) Hitchcock % (Auto) Lymph # Hitchcock # Baso # Seg Neutrophils % Seg Neuts % (Manual) Lymphocytes % (Manual) Monocytes % (Manual) Eosinophils % (Manual) Basophils % (Manual) Nucleated RBC % Seg Neutrophils # Seg Neutrophils # Man Lymphocytes # (Manual) Monocytes # (Manual) Eosinophils # (Manual) Basophils # (Manual) PT INR Fibrinogen dRVVT Confirm Interp Factor V Activity POC ABG pH POC ABG pCO2 POC ABG pO2 ABG pO2 ABG HCO3 ABG Base Excess ABG Hemoglobin Oxyhemoglobin Sodium Potassium Chloride Carbon Dioxide BUN Creatinine Glucose POC Glucose 164 H 186 H 195 H Lactic Acid Calcium Phosphorus Magnesium Direct Bilirubin AST ALT Alkaline Phosphatase Lactate Dehydrogenase Troponin T C-Reactive Protein Total Protein Albumin Prealbumin Triglycerides Cholesterol LDL Cholesterol Direct HDL Cholesterol PTH Intact Urine pH Urine WBC (Auto) Urine Creatinine Urine Total Protein Fluid Total Protein Vancomycin Trough Rheumatoid Factor Complement C4 Miscellaneous Test Crossmatch 09/06/16 09/06/16 09/06/16 04:12 05:59 07:32 WBC RBC Hgb Hct MCV MCH MCHC RDW Plt Count Lymph % (Auto) [place]cock % (Auto) Lymph # Hitchcock # Baso # Seg Neutrophils % Seg Neuts % (Manual) Lymphocytes % (Manual) Monocytes % (Manual) Eosinophils % (Manual) Basophils % (Manual) Nucleated RBC % Seg Neutrophils # Seg Neutrophils # Man Lymphocytes # (Manual) Monocytes # (Manual) Eosinophils # (Manual) Basophils # (Manual) PT INR Fibrinogen dRVVT Confirm Interp Factor V Activity POC ABG pH 7.514 H POC ABG pCO2 29.1 L POC ABG pO2 72 L ABG pO2 ABG HCO3 ABG Base Excess ABG Hemoglobin Oxyhemoglobin Sodium 133 L Potassium 3.4 L Chloride 94.9 L Carbon Dioxide 19 L BUN 30 H Creatinine 2.1 H Glucose 139 H POC Glucose 146 H Lactic Acid Calcium Phosphorus Magnesium Direct Bilirubin AST ALT Alkaline Phosphatase Lactate Dehydrogenase Troponin T C-Reactive Protein Total Protein Albumin Prealbumin Triglycerides Cholesterol LDL Cholesterol Direct HDL Cholesterol PTH Intact Urine pH Urine WBC (Auto) Urine Creatinine Urine Total Protein Fluid Total Protein Vancomycin Trough Rheumatoid Factor Complement C4 Miscellaneous Test Crossmatch 09/06/16 09/06/16 09/06/16 11:57 17:58 19:02 WBC RBC Hgb Hct MCV MCH MCHC RDW Plt Count Lymph % (Auto) Hitchcock % (Auto) Lymph # Hitchcock # Baso # Seg Neutrophils % Seg Neuts % (Manual) Lymphocytes % (Manual) Monocytes % (Manual) Eosinophils % (Manual) Basophils % (Manual) Nucleated RBC % Seg Neutrophils # Seg Neutrophils # Man Lymphocytes # (Manual) Monocytes # (Manual) Eosinophils # (Manual) Basophils # (Manual) PT INR Fibrinogen dRVVT Confirm Interp Factor V Activity POC ABG pH 7.465 H POC ABG pCO2 32.0 L POC ABG pO2 ABG pO2 ABG HCO3 ABG Base Excess ABG Hemoglobin Oxyhemoglobin Sodium Potassium Chloride Carbon Dioxide BUN Creatinine Glucose POC Glucose 165 H 160 H Lactic Acid Calcium Phosphorus Magnesium Direct Bilirubin AST ALT Alkaline Phosphatase Lactate Dehydrogenase Troponin T C-Reactive Protein Total Protein Albumin Prealbumin Triglycerides Cholesterol LDL Cholesterol Direct HDL Cholesterol PTH Intact Urine pH Urine WBC (Auto) Urine Creatinine Urine Total Protein Fluid Total Protein Vancomycin Trough Rheumatoid Factor Complement C4 Miscellaneous Test Crossmatch 09/06/16 09/07/16 09/07/16 23:45 02:47 02:47 WBC RBC Hgb Hct MCV MCH MCHC RDW Plt Count Lymph % (Auto) Hitchcock % (Auto) Lymph # Hitchcock # Baso # Seg Neutrophils % Seg Neuts % (Manual) Lymphocytes % (Manual) Monocytes % (Manual) Eosinophils % (Manual) Basophils % (Manual) Nucleated RBC % Seg Neutrophils # Seg Neutrophils # Man Lymphocytes # (Manual) Monocytes # (Manual) Eosinophils # (Manual) Basophils # (Manual) PT INR Fibrinogen dRVVT Confirm Interp Factor V Activity POC ABG pH POC ABG pCO2 POC ABG pO2 ABG pO2 ABG HCO3 ABG Base Excess ABG Hemoglobin Oxyhemoglobin Sodium Potassium Chloride Carbon Dioxide BUN Creatinine Glucose POC Glucose 204 H Lactic Acid Calcium Phosphorus Magnesium Direct Bilirubin AST ALT Alkaline Phosphatase Lactate Dehydrogenase Troponin T C-Reactive Protein Total Protein Albumin Prealbumin Triglycerides Cholesterol LDL Cholesterol Direct HDL Cholesterol PTH Intact Urine pH Urine WBC (Auto) 68.0 H Urine Creatinine 106.1 H Urine Total Protein Fluid Total Protein Vancomycin Trough Rheumatoid Factor Complement C4 Miscellaneous Test Crossmatch 09/07/16 09/07/16 09/07/16 04:50 06:19 06:39 WBC RBC Hgb Hct MCV MCH MCHC RDW Plt Count Lymph % (Auto) Hitchcock % (Auto) Lymph # Hitchcock # Baso # Seg Neutrophils % Seg Neuts % (Manual) Lymphocytes % (Manual) Monocytes % (Manual) Eosinophils % (Manual) Basophils % (Manual) Nucleated RBC % Seg Neutrophils # Seg Neutrophils # Man Lymphocytes # (Manual) Monocytes # (Manual) Eosinophils # (Manual) Basophils # (Manual) PT INR Fibrinogen dRVVT Confirm Interp Factor V Activity POC ABG pH 7.457 H POC ABG pCO2 32.1 L POC ABG pO2 76 L ABG pO2 ABG HCO3 ABG Base Excess ABG Hemoglobin Oxyhemoglobin Sodium 132 L Potassium Chloride 94.7 L Carbon Dioxide BUN 53 H Creatinine 2.9 H Glucose 151 H POC Glucose 149 H Lactic Acid Calcium Phosphorus Magnesium Direct Bilirubin AST ALT Alkaline Phosphatase Lactate Dehydrogenase Troponin T C-Reactive Protein Total Protein Albumin Prealbumin Triglycerides Cholesterol LDL Cholesterol Direct HDL Cholesterol PTH Intact Urine pH Urine WBC (Auto) Urine Creatinine Urine Total Protein Fluid Total Protein Vancomycin Trough Rheumatoid Factor Complement C4 Miscellaneous Test Crossmatch 09/07/16 09/07/16 09/07/16 09:20 11:43 11:43 WBC 19.4 H RBC Hgb 8.3 L Hct 26.4 L D MCV 72 L D MCH 22 L MCHC RDW 17.9 H Plt Count Lymph % (Auto) 8.5 L Hitchcock % (Auto) Lymph # Hitchcock # 1.0 H Baso # Seg Neutrophils % 85.8 H Seg Neuts % (Manual) Lymphocytes % (Manual) Monocytes % (Manual) Eosinophils % (Manual) Basophils % (Manual) Nucleated RBC % Seg Neutrophils # 16.6 H Seg Neutrophils # Man Lymphocytes # (Manual) Monocytes # (Manual) Eosinophils # (Manual) Basophils # (Manual) PT INR Fibrinogen dRVVT Confirm Interp Factor V Activity POC ABG pH POC ABG pCO2 POC ABG pO2 ABG pO2 ABG HCO3 ABG Base Excess ABG Hemoglobin Oxyhemoglobin Sodium 134 L Potassium Chloride 97.2 L Carbon Dioxide 20 L BUN 58 H Creatinine 2.9 H Glucose 147 H POC Glucose Lactic Acid Calcium Phosphorus 2.40 L Magnesium 2.40 H Direct Bilirubin AST ALT Alkaline Phosphatase Lactate Dehydrogenase Troponin T C-Reactive Protein Total Protein 5.8 L Albumin 2.2 L Prealbumin Triglycerides Cholesterol LDL Cholesterol Direct HDL Cholesterol PTH Intact Urine pH Urine WBC (Auto) Urine Creatinine Urine Total Protein Fluid Total Protein Vancomycin Trough Rheumatoid Factor Complement C4 58 H Miscellaneous Test Crossmatch 09/07/16 09/07/16 09/07/16 11:50 16:00 17:31 WBC RBC Hgb Hct MCV MCH MCHC RDW Plt Count Lymph % (Auto) Hitchcock % (Auto) Lymph # Hitchcock # Baso # Seg Neutrophils % Seg Neuts % (Manual) Lymphocytes % (Manual) Monocytes % (Manual) Eosinophils % (Manual) Basophils % (Manual) Nucleated RBC % Seg Neutrophils # Seg Neutrophils # Man Lymphocytes # (Manual) Monocytes # (Manual) Eosinophils # (Manual) Basophils # (Manual) PT INR Fibrinogen dRVVT Confirm Interp Factor V Activity POC ABG pH POC ABG pCO2 POC ABG pO2 158 H ABG pO2 ABG HCO3 ABG Base Excess ABG Hemoglobin Oxyhemoglobin Sodium Potassium Chloride Carbon Dioxide BUN Creatinine Glucose POC Glucose 175 H Lactic Acid Calcium Phosphorus Magnesium Direct Bilirubin AST ALT Alkaline Phosphatase Lactate Dehydrogenase Troponin T C-Reactive Protein Total Protein Albumin Prealbumin Triglycerides Cholesterol LDL Cholesterol Direct HDL Cholesterol PTH Intact Urine pH Urine WBC (Auto) Urine Creatinine 66.3 H Urine Total Protein Fluid Total Protein Vancomycin Trough Rheumatoid Factor Complement C4 Miscellaneous Test Crossmatch 09/07/16 09/08/16 09/08/16 23:50 05:46 06:18 WBC 17.8 H RBC 3.58 L Hgb 8.1 L Hct 25.5 L MCV 71 L MCH 23 L MCHC RDW 18.4 H Plt Count Lymph % (Auto) [place]cock % (Auto) Lymph # Hitchcock # Baso # Seg Neutrophils % Seg Neuts % (Manual) 92.0 H Lymphocytes % (Manual) 6.0 L Monocytes % (Manual) Eosinophils % (Manual) Basophils % (Manual) Nucleated RBC % Seg Neutrophils # Seg Neutrophils # Man 16.4 H Lymphocytes # (Manual) 1.1 L Monocytes # (Manual) Eosinophils # (Manual) Basophils # (Manual) PT INR Fibrinogen dRVVT Confirm Interp Factor V Activity POC ABG pH POC ABG pCO2 34.3 L POC ABG pO2 71 L ABG pO2 ABG HCO3 ABG Base Excess ABG Hemoglobin Oxyhemoglobin Sodium Potassium Chloride Carbon Dioxide BUN Creatinine Glucose POC Glucose 216 H Lactic Acid Calcium Phosphorus Magnesium Direct Bilirubin AST ALT Alkaline Phosphatase Lactate Dehydrogenase Troponin T C-Reactive Protein Total Protein Albumin Prealbumin Triglycerides Cholesterol LDL Cholesterol Direct HDL Cholesterol PTH Intact Urine pH Urine WBC (Auto) Urine Creatinine Urine Total Protein Fluid Total Protein Vancomycin Trough Rheumatoid Factor Complement C4 Miscellaneous Test Crossmatch 09/08/16 09/08/16 09/08/16 06:18 06:51 10:55 WBC RBC Hgb Hct MCV MCH MCHC RDW Plt Count Lymph % (Auto) [place]cock % (Auto) Lymph # [place] # Baso # Seg Neutrophils % Seg Neuts % (Manual) Lymphocytes % (Manual) Monocytes % (Manual) Eosinophils % (Manual) Basophils % (Manual) Nucleated RBC % Seg Neutrophils # Seg Neutrophils # Man Lymphocytes # (Manual) Monocytes # (Manual) Eosinophils # (Manual) Basophils # (Manual) PT INR Fibrinogen dRVVT Confirm Interp Factor V Activity POC ABG pH POC ABG pCO2 POC ABG pO2 ABG pO2 ABG HCO3 ABG Base Excess ABG Hemoglobin Oxyhemoglobin Sodium 133 L Potassium Chloride 96.9 L Carbon Dioxide 20 L BUN 63 H Creatinine 2.7 H Glucose 195 H POC Glucose 204 H 169 H Lactic Acid Calcium Phosphorus Magnesium Direct Bilirubin AST ALT Alkaline Phosphatase Lactate Dehydrogenase Troponin T C-Reactive Protein Total Protein Albumin Prealbumin Triglycerides Cholesterol LDL Cholesterol Direct HDL Cholesterol PTH Intact Urine pH Urine WBC (Auto) Urine Creatinine Urine Total Protein Fluid Total Protein Vancomycin Trough Rheumatoid Factor Complement C4 Miscellaneous Test Crossmatch 09/08/16 09/08/16 09/08/16 11:48 11:48 11:48 WBC RBC Hgb Hct MCV MCH MCHC RDW Plt Count Lymph % (Auto) [place] % (Auto) Lymph # [place] # Baso # Seg Neutrophils % Seg Neuts % (Manual) Lymphocytes % (Manual) Monocytes % (Manual) Eosinophils % (Manual) Basophils % (Manual) Nucleated RBC % Seg Neutrophils # Seg Neutrophils # Man Lymphocytes # (Manual) Monocytes # (Manual) Eosinophils # (Manual) Basophils # (Manual) PT INR Fibrinogen 750 H dRVVT Confirm Interp Factor V Activity POC ABG pH POC ABG pCO2 POC ABG pO2 ABG pO2 ABG HCO3 ABG Base Excess ABG Hemoglobin Oxyhemoglobin Sodium Potassium Chloride Carbon Dioxide BUN Creatinine Glucose POC Glucose Lactic Acid Calcium Phosphorus Magnesium Direct Bilirubin AST ALT Alkaline Phosphatase Lactate Dehydrogenase Troponin T C-Reactive Protein 15.70 H Total Protein Albumin Prealbumin Triglycerides Cholesterol LDL Cholesterol Direct HDL Cholesterol PTH Intact Urine pH Urine WBC (Auto) Urine Creatinine Urine Total Protein Fluid Total Protein Vancomycin Trough Rheumatoid Factor 24 H Complement C4 Miscellaneous Test Crossmatch 09/08/16 09/08/16 09/09/16 15:35 18:25 00:24 WBC RBC Hgb Hct MCV MCH MCHC RDW Plt Count Lymph % (Auto) [place] % (Auto) Lymph # [place] # Baso # Seg Neutrophils % Seg Neuts % (Manual) Lymphocytes % (Manual) Monocytes % (Manual) Eosinophils % (Manual) Basophils % (Manual) Nucleated RBC % Seg Neutrophils # Seg Neutrophils # Man Lymphocytes # (Manual) Monocytes # (Manual) Eosinophils # (Manual) Basophils # (Manual) PT INR Fibrinogen dRVVT Confirm Interp Factor V Activity 182 H POC ABG pH POC ABG pCO2 POC ABG pO2 ABG pO2 ABG HCO3 ABG Base Excess ABG Hemoglobin Oxyhemoglobin Sodium Potassium Chloride Carbon Dioxide BUN Creatinine Glucose POC Glucose 184 H 216 H Lactic Acid Calcium Phosphorus Magnesium Direct Bilirubin AST ALT Alkaline Phosphatase Lactate Dehydrogenase Troponin T C-Reactive Protein Total Protein Albumin Prealbumin Triglycerides Cholesterol LDL Cholesterol Direct HDL Cholesterol PTH Intact Urine pH Urine WBC (Auto) Urine Creatinine Urine Total Protein Fluid Total Protein Vancomycin Trough Rheumatoid Factor Complement C4 Miscellaneous Test Crossmatch 09/09/16 09/09/16 09/09/16 03:00 03:00 04:04 WBC 27.9 H RBC Hgb 8.7 L Hct 28.1 L MCV 72 L MCH 22 L MCHC RDW 18.4 H Plt Count 485 H Lymph % (Auto) [place] % (Auto) Lymph # [place] # Baso # Seg Neutrophils % Seg Neuts % (Manual) 77.0 H Lymphocytes % (Manual) 9.0 L Monocytes % (Manual) Eosinophils % (Manual) Basophils % (Manual) Nucleated RBC % Seg Neutrophils # Seg Neutrophils # Man 21.5 H Lymphocytes # (Manual) Monocytes # (Manual) 2.0 H Eosinophils # (Manual) Basophils # (Manual) PT INR Fibrinogen dRVVT Confirm Interp Factor V Activity POC ABG pH POC ABG pCO2 POC ABG pO2 121 H ABG pO2 ABG HCO3 ABG Base Excess ABG Hemoglobin Oxyhemoglobin Sodium 135 L Potassium Chloride 96.3 L Carbon Dioxide 21 L BUN 83 H Creatinine 3.0 H Glucose 135 H POC Glucose Lactic Acid Calcium Phosphorus Magnesium Direct Bilirubin AST ALT Alkaline Phosphatase Lactate Dehydrogenase Troponin T C-Reactive Protein Total Protein Albumin Prealbumin Triglycerides Cholesterol LDL Cholesterol Direct HDL Cholesterol PTH Intact Urine pH Urine WBC (Auto) Urine Creatinine Urine Total Protein Fluid Total Protein Vancomycin Trough Rheumatoid Factor Complement C4 Miscellaneous Test Crossmatch 09/09/16 09/09/16 09/09/16 05:41 11:55 14:13 WBC RBC Hgb Hct MCV MCH MCHC RDW Plt Count Lymph % (Auto) [place] % (Auto) Lymph # [place] # Baso # Seg Neutrophils % Seg Neuts % (Manual) Lymphocytes % (Manual) Monocytes % (Manual) Eosinophils % (Manual) Basophils % (Manual) Nucleated RBC % Seg Neutrophils # Seg Neutrophils # Man Lymphocytes # (Manual) Monocytes # (Manual) Eosinophils # (Manual) Basophils # (Manual) PT INR Fibrinogen dRVVT Confirm Interp Factor V Activity POC ABG pH POC ABG pCO2 POC ABG pO2 ABG pO2 ABG HCO3 ABG Base Excess ABG Hemoglobin Oxyhemoglobin Sodium Potassium Chloride Carbon Dioxide BUN Creatinine Glucose POC Glucose 155 H 186 H Lactic Acid Calcium Phosphorus Magnesium Direct Bilirubin AST ALT Alkaline Phosphatase Lactate Dehydrogenase Troponin T C-Reactive Protein Total Protein Albumin Prealbumin Triglycerides Cholesterol LDL Cholesterol Direct HDL Cholesterol PTH Intact Urine pH Urine WBC (Auto) 25.0 H Urine Creatinine Urine Total Protein Fluid Total Protein Vancomycin Trough Rheumatoid Factor Complement C4 Miscellaneous Test Crossmatch 09/09/16 09/09/16 09/10/16 17:33 23:13 05:09 WBC RBC Hgb Hct MCV MCH MCHC RDW Plt Count Lymph % (Auto) [place] % (Auto) Lymph # [place] # Baso # Seg Neutrophils % Seg Neuts % (Manual) Lymphocytes % (Manual) Monocytes % (Manual) Eosinophils % (Manual) Basophils % (Manual) Nucleated RBC % Seg Neutrophils # Seg Neutrophils # Man Lymphocytes # (Manual) Monocytes # (Manual) Eosinophils # (Manual) Basophils # (Manual) PT INR Fibrinogen dRVVT Confirm Interp Factor V Activity POC ABG pH POC ABG pCO2 POC ABG pO2 74 L ABG pO2 ABG HCO3 ABG Base Excess ABG Hemoglobin Oxyhemoglobin Sodium Potassium Chloride Carbon Dioxide BUN Creatinine Glucose POC Glucose 211 H 215 H Lactic Acid Calcium Phosphorus Magnesium Direct Bilirubin AST ALT Alkaline Phosphatase Lactate Dehydrogenase Troponin T C-Reactive Protein Total Protein Albumin Prealbumin Triglycerides Cholesterol LDL Cholesterol Direct HDL Cholesterol PTH Intact Urine pH Urine WBC (Auto) Urine Creatinine Urine Total Protein Fluid Total Protein Vancomycin Trough Rheumatoid Factor Complement C4 Miscellaneous Test Crossmatch 09/10/16 09/10/16 09/10/16 05:17 05:17 11:31 WBC 15.8 H RBC 3.25 L Hgb 7.3 L Hct 22.9 L MCV 71 L MCH 23 L MCHC RDW 18.4 H Plt Count Lymph % (Auto) [place] % (Auto) Lymph # [place] # Baso # Seg Neutrophils % Seg Neuts % (Manual) 91.0 H Lymphocytes % (Manual) 4.0 L Monocytes % (Manual) Eosinophils % (Manual) Basophils % (Manual) Nucleated RBC % Seg Neutrophils # Seg Neutrophils # Man 14.4 H Lymphocytes # (Manual) 0.6 L Monocytes # (Manual) Eosinophils # (Manual) Basophils # (Manual) PT INR Fibrinogen dRVVT Confirm Interp Factor V Activity POC ABG pH POC ABG pCO2 POC ABG pO2 ABG pO2 ABG HCO3 ABG Base Excess ABG Hemoglobin Oxyhemoglobin Sodium Potassium Chloride Carbon Dioxide 21 L BUN 93 H Creatinine 2.9 H Glucose 146 H POC Glucose 188 H Lactic Acid Calcium 8.1 L Phosphorus Magnesium Direct Bilirubin AST ALT Alkaline Phosphatase Lactate Dehydrogenase Troponin T C-Reactive Protein Total Protein Albumin Prealbumin Triglycerides Cholesterol LDL Cholesterol Direct HDL Cholesterol PTH Intact Urine pH Urine WBC (Auto) Urine Creatinine Urine Total Protein Fluid Total Protein Vancomycin Trough Rheumatoid Factor Complement C4 Miscellaneous Test Crossmatch 09/10/16 09/10/16 09/10/16 13:17 17:20 23:32 WBC RBC Hgb Hct MCV MCH MCHC RDW Plt Count Lymph % (Auto) [place] % (Auto) Lymph # [place] # Baso # Seg Neutrophils % Seg Neuts % (Manual) Lymphocytes % (Manual) Monocytes % (Manual) Eosinophils % (Manual) Basophils % (Manual) Nucleated RBC % Seg Neutrophils # Seg Neutrophils # Man Lymphocytes # (Manual) Monocytes # (Manual) Eosinophils # (Manual) Basophils # (Manual) PT INR Fibrinogen dRVVT Confirm Interp Factor V Activity POC ABG pH POC ABG pCO2 POC ABG pO2 ABG pO2 ABG HCO3 ABG Base Excess ABG Hemoglobin Oxyhemoglobin Sodium Potassium Chloride Carbon Dioxide BUN Creatinine Glucose POC Glucose 199 H 186 H Lactic Acid Calcium Phosphorus Magnesium Direct Bilirubin AST ALT Alkaline Phosphatase Lactate Dehydrogenase Troponin T C-Reactive Protein Total Protein Albumin Prealbumin Triglycerides Cholesterol LDL Cholesterol Direct HDL Cholesterol PTH Intact Urine pH Urine WBC (Auto) Urine Creatinine Urine Total Protein Fluid Total Protein Vancomycin Trough Rheumatoid Factor Complement C4 Miscellaneous Test Crossmatch See Detail 09/11/16 09/11/16 09/11/16 05:10 05:10 05:17 WBC 28.4 H RBC Hgb 9.2 L Hct 29.3 L D MCV 73 L MCH 23 L MCHC RDW 18.9 H Plt Count 452 H Lymph % (Auto) [place] % (Auto) Lymph # [place] # Baso # Seg Neutrophils % Seg Neuts % (Manual) 89.5 H Lymphocytes % (Manual) 2.0 L Monocytes % (Manual) Eosinophils % (Manual) Basophils % (Manual) Nucleated RBC % Seg Neutrophils # Seg Neutrophils # Man 25.4 H Lymphocytes # (Manual) 0.6 L Monocytes # (Manual) 1.3 H Eosinophils # (Manual) Basophils # (Manual) PT INR Fibrinogen dRVVT Confirm Interp Factor V Activity POC ABG pH POC ABG pCO2 POC ABG pO2 ABG pO2 ABG HCO3 ABG Base Excess ABG Hemoglobin Oxyhemoglobin Sodium 136 L Potassium Chloride Carbon Dioxide 18 L BUN 107 H Creatinine 2.6 H Glucose 187 H POC Glucose 230 H Lactic Acid Calcium 8.3 L Phosphorus Magnesium Direct Bilirubin AST ALT Alkaline Phosphatase Lactate Dehydrogenase Troponin T C-Reactive Protein Total Protein Albumin Prealbumin Triglycerides Cholesterol LDL Cholesterol Direct HDL Cholesterol PTH Intact Urine pH Urine WBC (Auto) Urine Creatinine Urine Total Protein Fluid Total Protein Vancomycin Trough Rheumatoid Factor Complement C4 Miscellaneous Test Crossmatch 09/11/16 09/11/16 09/11/16 05:55 12:02 17:32 WBC RBC Hgb Hct MCV MCH MCHC RDW Plt Count Lymph % (Auto) [place] % (Auto) Lymph # [place] # Baso # Seg Neutrophils % Seg Neuts % (Manual) Lymphocytes % (Manual) Monocytes % (Manual) Eosinophils % (Manual) Basophils % (Manual) Nucleated RBC % Seg Neutrophils # Seg Neutrophils # Man Lymphocytes # (Manual) Monocytes # (Manual) Eosinophils # (Manual) Basophils # (Manual) PT INR Fibrinogen dRVVT Confirm Interp Factor V Activity POC ABG pH POC ABG pCO2 33.8 L POC ABG pO2 ABG pO2 ABG HCO3 ABG Base Excess ABG Hemoglobin Oxyhemoglobin Sodium Potassium Chloride Carbon Dioxide BUN Creatinine Glucose POC Glucose 191 H 239 H Lactic Acid Calcium Phosphorus Magnesium Direct Bilirubin AST ALT Alkaline Phosphatase Lactate Dehydrogenase Troponin T C-Reactive Protein Total Protein Albumin Prealbumin Triglycerides Cholesterol LDL Cholesterol Direct HDL Cholesterol PTH Intact Urine pH Urine WBC (Auto) Urine Creatinine Urine Total Protein Fluid Total Protein Vancomycin Trough Rheumatoid Factor Complement C4 Miscellaneous Test Crossmatch 09/11/16 09/12/16 09/12/16 23:52 05:09 05:32 WBC RBC Hgb Hct MCV MCH MCHC RDW Plt Count Lymph % (Auto) [place] % (Auto) Lymph # [place] # Baso # Seg Neutrophils % Seg Neuts % (Manual) Lymphocytes % (Manual) Monocytes % (Manual) Eosinophils % (Manual) Basophils % (Manual) Nucleated RBC % Seg Neutrophils # Seg Neutrophils # Man Lymphocytes # (Manual) Monocytes # (Manual) Eosinophils # (Manual) Basophils # (Manual) PT INR Fibrinogen dRVVT Confirm Interp Factor V Activity POC ABG pH POC ABG pCO2 34.6 L POC ABG pO2 ABG pO2 ABG HCO3 ABG Base Excess ABG Hemoglobin Oxyhemoglobin Sodium Potassium Chloride Carbon Dioxide BUN Creatinine Glucose POC Glucose 265 H 184 H Lactic Acid Calcium Phosphorus Magnesium Direct Bilirubin AST ALT Alkaline Phosphatase Lactate Dehydrogenase Troponin T C-Reactive Protein Total Protein Albumin Prealbumin Triglycerides Cholesterol LDL Cholesterol Direct HDL Cholesterol PTH Intact Urine pH Urine WBC (Auto) Urine Creatinine Urine Total Protein Fluid Total Protein Vancomycin Trough Rheumatoid Factor Complement C4 Miscellaneous Test Crossmatch 09/12/16 09/12/16 09/12/16 06:45 06:45 07:22 WBC 31.7 H RBC 3.54 L Hgb 8.3 L Hct 25.9 L MCV 73 L MCH 23 L MCHC RDW 18.9 H Plt Count Lymph % (Auto) [place] % (Auto) Lymph # [place] # Baso # Seg Neutrophils % Seg Neuts % (Manual) 88.5 H Lymphocytes % (Manual) 4.5 L Monocytes % (Manual) Eosinophils % (Manual) Basophils % (Manual) Nucleated RBC % Seg Neutrophils # Seg Neutrophils # Man 28.1 H Lymphocytes # (Manual) Monocytes # (Manual) 1.0 H Eosinophils # (Manual) Basophils # (Manual) PT INR Fibrinogen dRVVT Confirm Interp Factor V Activity POC ABG pH POC ABG pCO2 POC ABG pO2 ABG pO2 ABG HCO3 ABG Base Excess ABG Hemoglobin Oxyhemoglobin Sodium Potassium Chloride Carbon Dioxide 20 L BUN 115 H Creatinine 2.7 H Glucose 165 H POC Glucose Lactic Acid Calcium 8.0 L Phosphorus Magnesium Direct Bilirubin AST ALT Alkaline Phosphatase Lactate Dehydrogenase Troponin T C-Reactive Protein Total Protein Albumin Prealbumin Triglycerides 217 H Cholesterol LDL Cholesterol Direct HDL Cholesterol PTH Intact Urine pH Urine WBC (Auto) Urine Creatinine Urine Total Protein Fluid Total Protein Vancomycin Trough Rheumatoid Factor Complement C4 Miscellaneous Test Crossmatch 09/12/16 09/12/16 09/12/16 07:22 09:59 12:21 WBC RBC Hgb Hct MCV MCH MCHC RDW Plt Count Lymph % (Auto) [place] % (Auto) Lymph # [place] # Baso # Seg Neutrophils % Seg Neuts % (Manual) Lymphocytes % (Manual) Monocytes % (Manual) Eosinophils % (Manual) Basophils % (Manual) Nucleated RBC % Seg Neutrophils # Seg Neutrophils # Man Lymphocytes # (Manual) Monocytes # (Manual) Eosinophils # (Manual) Basophils # (Manual) PT INR Fibrinogen dRVVT Confirm Interp Positive H Factor V Activity POC ABG pH POC ABG pCO2 POC ABG pO2 ABG pO2 ABG HCO3 ABG Base Excess ABG Hemoglobin Oxyhemoglobin Sodium Potassium Chloride Carbon Dioxide BUN Creatinine Glucose POC Glucose 224 H Lactic Acid Calcium Phosphorus Magnesium Direct Bilirubin AST ALT Alkaline Phosphatase Lactate Dehydrogenase Troponin T C-Reactive Protein 1.70 H Total Protein Albumin Prealbumin Triglycerides Cholesterol LDL Cholesterol Direct HDL Cholesterol PTH Intact Urine pH Urine WBC (Auto) Urine Creatinine Urine Total Protein Fluid Total Protein Vancomycin Trough Rheumatoid Factor Complement C4 Miscellaneous Test Crossmatch 09/12/16 09/12/16 09/13/16 16:51 23:28 04:00 WBC 45.0 H* RBC Hgb 9.4 L Hct MCV 75 L MCH 23 L MCHC RDW 19.0 H Plt Count 470 H Lymph % (Auto) [place] % (Auto) Lymph # [place] # Baso # Seg Neutrophils % Seg Neuts % (Manual) 89.0 H Lymphocytes % (Manual) 5.0 L Monocytes % (Manual) Eosinophils % (Manual) Basophils % (Manual) Nucleated RBC % Seg Neutrophils # Seg Neutrophils # Man 40.1 H Lymphocytes # (Manual) Monocytes # (Manual) Eosinophils # (Manual) Basophils # (Manual) PT INR Fibrinogen dRVVT Confirm Interp Factor V Activity POC ABG pH POC ABG pCO2 POC ABG pO2 ABG pO2 ABG HCO3 ABG Base Excess ABG Hemoglobin Oxyhemoglobin Sodium Potassium Chloride Carbon Dioxide BUN Creatinine Glucose POC Glucose 169 H 150 H Lactic Acid Calcium Phosphorus Magnesium Direct Bilirubin AST ALT Alkaline Phosphatase Lactate Dehydrogenase Troponin T C-Reactive Protein Total Protein Albumin Prealbumin Triglycerides Cholesterol LDL Cholesterol Direct HDL Cholesterol PTH Intact Urine pH Urine WBC (Auto) Urine Creatinine Urine Total Protein Fluid Total Protein Vancomycin Trough Rheumatoid Factor Complement C4 Miscellaneous Test Crossmatch 09/13/16 09/13/16 09/13/16 04:00 11:26 17:31 WBC RBC Hgb Hct MCV MCH MCHC RDW Plt Count Lymph % (Auto) [place] % (Auto) Lymph # [place] # Baso # Seg Neutrophils % Seg Neuts % (Manual) Lymphocytes % (Manual) Monocytes % (Manual) Eosinophils % (Manual) Basophils % (Manual) Nucleated RBC % Seg Neutrophils # Seg Neutrophils # Man Lymphocytes # (Manual) Monocytes # (Manual) Eosinophils # (Manual) Basophils # (Manual) PT INR Fibrinogen dRVVT Confirm Interp Factor V Activity POC ABG pH POC ABG pCO2 POC ABG pO2 ABG pO2 ABG HCO3 ABG Base Excess ABG Hemoglobin Oxyhemoglobin Sodium Potassium Chloride Carbon Dioxide 20 L BUN 116 H Creatinine 3.0 H Glucose 172 H POC Glucose 140 H 183 H Lactic Acid Calcium Phosphorus Magnesium Direct Bilirubin AST ALT Alkaline Phosphatase Lactate Dehydrogenase Troponin T C-Reactive Protein Total Protein 6.2 L Albumin 2.9 L Prealbumin Triglycerides Cholesterol LDL Cholesterol Direct HDL Cholesterol PTH Intact Urine pH Urine WBC (Auto) Urine Creatinine Urine Total Protein Fluid Total Protein Vancomycin Trough Rheumatoid Factor Complement C4 Miscellaneous Test Crossmatch 09/13/16 09/14/16 09/14/16 23:23 04:06 04:07 WBC 29.4 H RBC Hgb 8.9 L Hct 27.3 L MCV 75 L MCH 24 L MCHC RDW 19.1 H Plt Count Lymph % (Auto) [place] % (Auto) Lymph # [place] # Baso # Seg Neutrophils % Seg Neuts % (Manual) 84.0 H Lymphocytes % (Manual) 6.0 L Monocytes % (Manual) 9.0 H Eosinophils % (Manual) Basophils % (Manual) Nucleated RBC % Seg Neutrophils # Seg Neutrophils # Man 24.7 H Lymphocytes # (Manual) Monocytes # (Manual) 2.6 H Eosinophils # (Manual) Basophils # (Manual) PT INR Fibrinogen dRVVT Confirm Interp Factor V Activity POC ABG pH 7.342 L POC ABG pCO2 POC ABG pO2 116 H ABG pO2 ABG HCO3 ABG Base Excess ABG Hemoglobin Oxyhemoglobin Sodium Potassium Chloride Carbon Dioxide BUN Creatinine Glucose POC Glucose 154 H Lactic Acid Calcium Phosphorus Magnesium Direct Bilirubin AST ALT Alkaline Phosphatase Lactate Dehydrogenase Troponin T C-Reactive Protein Total Protein Albumin Prealbumin Triglycerides Cholesterol LDL Cholesterol Direct HDL Cholesterol PTH Intact Urine pH Urine WBC (Auto) Urine Creatinine Urine Total Protein Fluid Total Protein Vancomycin Trough Rheumatoid Factor Complement C4 Miscellaneous Test Crossmatch 09/14/16 09/14/16 09/14/16 04:07 05:29 12:19 WBC RBC Hgb Hct MCV MCH MCHC RDW Plt Count Lymph % (Auto) [place] % (Auto) Lymph # [place] # Baso # Seg Neutrophils % Seg Neuts % (Manual) Lymphocytes % (Manual) Monocytes % (Manual) Eosinophils % (Manual) Basophils % (Manual) Nucleated RBC % Seg Neutrophils # Seg Neutrophils # Man Lymphocytes # (Manual) Monocytes # (Manual) Eosinophils # (Manual) Basophils # (Manual) PT INR Fibrinogen dRVVT Confirm Interp Factor V Activity POC ABG pH POC ABG pCO2 POC ABG pO2 ABG pO2 ABG HCO3 ABG Base Excess ABG Hemoglobin Oxyhemoglobin Sodium 136 L Potassium Chloride Carbon Dioxide 18 L BUN 121 H Creatinine 2.8 H Glucose 214 H POC Glucose 239 H 181 H Lactic Acid Calcium Phosphorus Magnesium Direct Bilirubin AST ALT Alkaline Phosphatase Lactate Dehydrogenase Troponin T C-Reactive Protein Total Protein Albumin Prealbumin Triglycerides Cholesterol LDL Cholesterol Direct HDL Cholesterol PTH Intact Urine pH Urine WBC (Auto) Urine Creatinine Urine Total Protein Fluid Total Protein Vancomycin Trough Rheumatoid Factor Complement C4 Miscellaneous Test Crossmatch 09/14/16 09/14/16 09/15/16 18:12 23:37 05:00 WBC 26.1 H RBC 3.05 L Hgb 7.2 L Hct 22.9 L MCV 75 L MCH 24 L MCHC RDW 19.0 H Plt Count Lymph % (Auto) [place] % (Auto) Lymph # [place] # Baso # Seg Neutrophils % Seg Neuts % (Manual) Lymphocytes % (Manual) Monocytes % (Manual) Eosinophils % (Manual) Basophils % (Manual) Nucleated RBC % Seg Neutrophils # Seg Neutrophils # Man Lymphocytes # (Manual) Monocytes # (Manual) Eosinophils # (Manual) Basophils # (Manual) PT INR Fibrinogen dRVVT Confirm Interp Factor V Activity POC ABG pH POC ABG pCO2 POC ABG pO2 ABG pO2 ABG HCO3 ABG Base Excess ABG Hemoglobin Oxyhemoglobin Sodium Potassium Chloride Carbon Dioxide BUN Creatinine Glucose POC Glucose 266 H 154 H Lactic Acid Calcium Phosphorus Magnesium Direct Bilirubin AST ALT Alkaline Phosphatase Lactate Dehydrogenase Troponin T C-Reactive Protein Total Protein Albumin Prealbumin Triglycerides Cholesterol LDL Cholesterol Direct HDL Cholesterol PTH Intact Urine pH Urine WBC (Auto) Urine Creatinine Urine Total Protein Fluid Total Protein Vancomycin Trough Rheumatoid Factor Complement C4 Miscellaneous Test Crossmatch 09/15/16 09/15/16 09/15/16 05:00 05:17 12:45 WBC RBC Hgb Hct MCV MCH MCHC RDW Plt Count Lymph % (Auto) [place] % (Auto) Lymph # [place] # Baso # Seg Neutrophils % Seg Neuts % (Manual) Lymphocytes % (Manual) Monocytes % (Manual) Eosinophils % (Manual) Basophils % (Manual) Nucleated RBC % Seg Neutrophils # Seg Neutrophils # Man Lymphocytes # (Manual) Monocytes # (Manual) Eosinophils # (Manual) Basophils # (Manual) PT INR Fibrinogen dRVVT Confirm Interp Factor V Activity POC ABG pH POC ABG pCO2 POC ABG pO2 ABG pO2 ABG HCO3 ABG Base Excess ABG Hemoglobin Oxyhemoglobin Sodium Potassium 5.2 H Chloride Carbon Dioxide 18 L BUN 139 H Creatinine 3.7 H Glucose 227 H POC Glucose 226 H 244 H Lactic Acid Calcium 8.3 L Phosphorus Magnesium Direct Bilirubin AST ALT Alkaline Phosphatase Lactate Dehydrogenase Troponin T C-Reactive Protein Total Protein Albumin Prealbumin Triglycerides Cholesterol LDL Cholesterol Direct HDL Cholesterol PTH Intact Urine pH Urine WBC (Auto) Urine Creatinine Urine Total Protein Fluid Total Protein Vancomycin Trough Rheumatoid Factor Complement C4 Miscellaneous Test Crossmatch 09/15/16 09/15/16 09/15/16 14:32 17:33 23:35 WBC RBC Hgb Hct MCV MCH MCHC RDW Plt Count Lymph % (Auto) [place] % (Auto) Lymph # [place] # Baso # Seg Neutrophils % Seg Neuts % (Manual) Lymphocytes % (Manual) Monocytes % (Manual) Eosinophils % (Manual) Basophils % (Manual) Nucleated RBC % Seg Neutrophils # Seg Neutrophils # Man Lymphocytes # (Manual) Monocytes # (Manual) Eosinophils # (Manual) Basophils # (Manual) PT INR Fibrinogen dRVVT Confirm Interp Factor V Activity POC ABG pH POC ABG pCO2 27.7 L POC ABG pO2 120 H ABG pO2 ABG HCO3 ABG Base Excess ABG Hemoglobin Oxyhemoglobin Sodium Potassium Chloride Carbon Dioxide BUN Creatinine Glucose POC Glucose 232 H 167 H Lactic Acid Calcium Phosphorus Magnesium Direct Bilirubin AST ALT Alkaline Phosphatase Lactate Dehydrogenase Troponin T C-Reactive Protein Total Protein Albumin Prealbumin Triglycerides Cholesterol LDL Cholesterol Direct HDL Cholesterol PTH Intact Urine pH Urine WBC (Auto) Urine Creatinine Urine Total Protein Fluid Total Protein Vancomycin Trough Rheumatoid Factor Complement C4 Miscellaneous Test Crossmatch 09/16/16 09/16/16 09/16/16 03:58 10:27 10:27 WBC 19.0 H RBC 2.77 L Hgb 6.5 L Hct 20.9 L MCV 76 L MCH 23 L MCHC RDW 19.3 H Plt Count Lymph % (Auto) 11.0 L [place] % (Auto) Lymph # [place] # 1.1 H Baso # Seg Neutrophils % 82.5 H Seg Neuts % (Manual) Lymphocytes % (Manual) Monocytes % (Manual) Eosinophils % (Manual) Basophils % (Manual) Nucleated RBC % Seg Neutrophils # 15.7 H Seg Neutrophils # Man Lymphocytes # (Manual) Monocytes # (Manual) Eosinophils # (Manual) Basophils # (Manual) PT INR Fibrinogen dRVVT Confirm Interp Factor V Activity POC ABG pH POC ABG pCO2 POC ABG pO2 ABG pO2 ABG HCO3 ABG Base Excess ABG Hemoglobin Oxyhemoglobin Sodium Potassium Chloride 109.3 H Carbon Dioxide 18 L BUN 139 H Creatinine 4.1 H Glucose 144 H POC Glucose 146 H Lactic Acid Calcium 8.1 L Phosphorus Magnesium Direct Bilirubin AST ALT Alkaline Phosphatase Lactate Dehydrogenase Troponin T C-Reactive Protein Total Protein Albumin Prealbumin Triglycerides Cholesterol LDL Cholesterol Direct HDL Cholesterol PTH Intact Urine pH Urine WBC (Auto) Urine Creatinine Urine Total Protein Fluid Total Protein Vancomycin Trough Rheumatoid Factor Complement C4 Miscellaneous Test Crossmatch 09/16/16 09/16/16 09/16/16 12:04 12:10 13:55 WBC RBC Hgb Hct MCV MCH MCHC RDW Plt Count Lymph % (Auto) [place] % (Auto) Lymph # [place] # Baso # Seg Neutrophils % Seg Neuts % (Manual) Lymphocytes % (Manual) Monocytes % (Manual) Eosinophils % (Manual) Basophils % (Manual) Nucleated RBC % Seg Neutrophils # Seg Neutrophils # Man Lymphocytes # (Manual) Monocytes # (Manual) Eosinophils # (Manual) Basophils # (Manual) PT INR Fibrinogen dRVVT Confirm Interp Factor V Activity POC ABG pH POC ABG pCO2 32.9 L POC ABG pO2 ABG pO2 ABG HCO3 ABG Base Excess ABG Hemoglobin Oxyhemoglobin Sodium Potassium Chloride Carbon Dioxide BUN Creatinine Glucose POC Glucose 185 H Lactic Acid Calcium Phosphorus Magnesium Direct Bilirubin AST ALT Alkaline Phosphatase Lactate Dehydrogenase Troponin T C-Reactive Protein Total Protein Albumin Prealbumin Triglycerides Cholesterol LDL Cholesterol Direct HDL Cholesterol PTH Intact Urine pH Urine WBC (Auto) Urine Creatinine Urine Total Protein Fluid Total Protein Vancomycin Trough Rheumatoid Factor Complement C4 Miscellaneous Test Crossmatch See Detail 09/16/16 09/16/16 09/16/16 17:55 19:19 23:48 WBC RBC Hgb Hct MCV MCH MCHC RDW Plt Count Lymph % (Auto) Hitchcock % (Auto) Lymph # Hitchcock # Baso # Seg Neutrophils % Seg Neuts % (Manual) Lymphocytes % (Manual) Monocytes % (Manual) Eosinophils % (Manual) Basophils % (Manual) Nucleated RBC % Seg Neutrophils # Seg Neutrophils # Man Lymphocytes # (Manual) Monocytes # (Manual) Eosinophils # (Manual) Basophils # (Manual) PT INR Fibrinogen dRVVT Confirm Interp Factor V Activity POC ABG pH POC ABG pCO2 POC ABG pO2 ABG pO2 ABG HCO3 ABG Base Excess ABG Hemoglobin Oxyhemoglobin Sodium Potassium Chloride Carbon Dioxide BUN Creatinine Glucose POC Glucose 222 H 107 H Lactic Acid Calcium Phosphorus Magnesium Direct Bilirubin AST ALT Alkaline Phosphatase Lactate Dehydrogenase Troponin T C-Reactive Protein Total Protein Albumin Prealbumin Triglycerides Cholesterol LDL Cholesterol Direct HDL Cholesterol PTH Intact Urine pH Urine WBC (Auto) Urine Creatinine 47.4 H Urine Total Protein 16 H Fluid Total Protein Vancomycin Trough Rheumatoid Factor Complement C4 Miscellaneous Test Crossmatch 09/17/16 09/17/16 09/17/16 03:45 03:45 04:55 WBC 19.6 H RBC 3.41 L Hgb 8.5 L Hct 26.7 L MCV 78 L MCH 25 L MCHC RDW 19.9 H Plt Count Lymph % (Auto) 9.3 L Hitchcock % (Auto) Lymph # Hitchcock # 1.2 H Baso # Seg Neutrophils % 83.9 H Seg Neuts % (Manual) Lymphocytes % (Manual) Monocytes % (Manual) Eosinophils % (Manual) Basophils % (Manual) Nucleated RBC % Seg Neutrophils # 16.4 H Seg Neutrophils # Man Lymphocytes # (Manual) Monocytes # (Manual) Eosinophils # (Manual) Basophils # (Manual) PT INR Fibrinogen dRVVT Confirm Interp Factor V Activity POC ABG pH POC ABG pCO2 POC ABG pO2 ABG pO2 ABG HCO3 ABG Base Excess ABG Hemoglobin Oxyhemoglobin Sodium 146 H Potassium 5.1 H Chloride 110.9 H Carbon Dioxide 16 L BUN 146 H Creatinine 4.0 H Glucose 108 H POC Glucose 133 H Lactic Acid Calcium Phosphorus Magnesium 3.00 H Direct Bilirubin AST ALT Alkaline Phosphatase Lactate Dehydrogenase Troponin T C-Reactive Protein Total Protein Albumin Prealbumin Triglycerides Cholesterol LDL Cholesterol Direct HDL Cholesterol PTH Intact Urine pH Urine WBC (Auto) Urine Creatinine Urine Total Protein Fluid Total Protein Vancomycin Trough Rheumatoid Factor Complement C4 Miscellaneous Test Crossmatch 09/17/16 09/17/16 09/17/16 11:15 17:33 23:47 WBC RBC Hgb Hct MCV MCH MCHC RDW Plt Count Lymph % (Auto) [place] % (Auto) Lymph # [place] # Baso # Seg Neutrophils % Seg Neuts % (Manual) Lymphocytes % (Manual) Monocytes % (Manual) Eosinophils % (Manual) Basophils % (Manual) Nucleated RBC % Seg Neutrophils # Seg Neutrophils # Man Lymphocytes # (Manual) Monocytes # (Manual) Eosinophils # (Manual) Basophils # (Manual) PT INR Fibrinogen dRVVT Confirm Interp Factor V Activity POC ABG pH POC ABG pCO2 POC ABG pO2 ABG pO2 ABG HCO3 ABG Base Excess ABG Hemoglobin Oxyhemoglobin Sodium Potassium Chloride Carbon Dioxide BUN Creatinine Glucose POC Glucose 176 H 246 H 148 H Lactic Acid Calcium Phosphorus Magnesium Direct Bilirubin AST ALT Alkaline Phosphatase Lactate Dehydrogenase Troponin T C-Reactive Protein Total Protein Albumin Prealbumin Triglycerides Cholesterol LDL Cholesterol Direct HDL Cholesterol PTH Intact Urine pH Urine WBC (Auto) Urine Creatinine Urine Total Protein Fluid Total Protein Vancomycin Trough Rheumatoid Factor Complement C4 Miscellaneous Test Crossmatch 09/18/16 09/18/16 09/18/16 05:33 08:31 08:31 WBC 18.0 H RBC 3.17 L Hgb 9.0 L Hct 25.7 L MCV MCH MCHC 35 H RDW 20.4 H Plt Count Lymph % (Auto) [place] % (Auto) Lymph # [place] # Baso # Seg Neutrophils % Seg Neuts % (Manual) Lymphocytes % (Manual) Monocytes % (Manual) Eosinophils % (Manual) Basophils % (Manual) Nucleated RBC % Seg Neutrophils # Seg Neutrophils # Man Lymphocytes # (Manual) Monocytes # (Manual) Eosinophils # (Manual) Basophils # (Manual) PT INR Fibrinogen dRVVT Confirm Interp Factor V Activity POC ABG pH POC ABG pCO2 POC ABG pO2 ABG pO2 ABG HCO3 ABG Base Excess ABG Hemoglobin Oxyhemoglobin Sodium Potassium Chloride Carbon Dioxide 15 L BUN 124 H Creatinine 3.8 H Glucose POC Glucose 120 H Lactic Acid Calcium 8.1 L Phosphorus Magnesium Direct Bilirubin AST ALT Alkaline Phosphatase Lactate Dehydrogenase Troponin T C-Reactive Protein Total Protein Albumin Prealbumin Triglycerides Cholesterol LDL Cholesterol Direct HDL Cholesterol PTH Intact Urine pH Urine WBC (Auto) Urine Creatinine Urine Total Protein Fluid Total Protein Vancomycin Trough Rheumatoid Factor Complement C4 Miscellaneous Test Crossmatch 09/18/16 09/18/16 09/18/16 12:03 15:34 17:50 WBC RBC Hgb Hct MCV MCH MCHC RDW Plt Count Lymph % (Auto) [place] % (Auto) Lymph # [place] # Baso # Seg Neutrophils % Seg Neuts % (Manual) Lymphocytes % (Manual) Monocytes % (Manual) Eosinophils % (Manual) Basophils % (Manual) Nucleated RBC % Seg Neutrophils # Seg Neutrophils # Man Lymphocytes # (Manual) Monocytes # (Manual) Eosinophils # (Manual) Basophils # (Manual) PT INR Fibrinogen dRVVT Confirm Interp Factor V Activity POC ABG pH POC ABG pCO2 25.7 L POC ABG pO2 66 L ABG pO2 ABG HCO3 ABG Base Excess ABG Hemoglobin Oxyhemoglobin Sodium Potassium Chloride Carbon Dioxide BUN Creatinine Glucose POC Glucose 156 H 220 H Lactic Acid Calcium Phosphorus Magnesium Direct Bilirubin AST ALT Alkaline Phosphatase Lactate Dehydrogenase Troponin T C-Reactive Protein Total Protein Albumin Prealbumin Triglycerides Cholesterol LDL Cholesterol Direct HDL Cholesterol PTH Intact Urine pH Urine WBC (Auto) Urine Creatinine Urine Total Protein Fluid Total Protein Vancomycin Trough Rheumatoid Factor Complement C4 Miscellaneous Test Crossmatch 09/19/16 09/19/16 09/19/16 06:21 09:50 09:50 WBC 17.1 H RBC 3.49 L Hgb 9.0 L Hct 28.1 L MCV MCH 26 L MCHC RDW 20.8 H Plt Count Lymph % (Auto) 11.5 L [place] % (Auto) 7.5 H Lymph # [place]cock # 1.3 H Baso # Seg Neutrophils % 79.8 H Seg Neuts % (Manual) Lymphocytes % (Manual) Monocytes % (Manual) Eosinophils % (Manual) Basophils % (Manual) Nucleated RBC % Seg Neutrophils # 13.7 H Seg Neutrophils # Man Lymphocytes # (Manual) Monocytes # (Manual) Eosinophils # (Manual) Basophils # (Manual) PT INR Fibrinogen dRVVT Confirm Interp Factor V Activity POC ABG pH POC ABG pCO2 POC ABG pO2 ABG pO2 ABG HCO3 ABG Base Excess ABG Hemoglobin Oxyhemoglobin Sodium Potassium Chloride 108.6 H Carbon Dioxide 15 L BUN 125 H Creatinine 4.1 H Glucose 124 H POC Glucose 119 H Lactic Acid Calcium Phosphorus Magnesium Direct Bilirubin AST ALT Alkaline Phosphatase Lactate Dehydrogenase Troponin T C-Reactive Protein Total Protein Albumin Prealbumin Triglycerides Cholesterol LDL Cholesterol Direct HDL Cholesterol PTH Intact Urine pH Urine WBC (Auto) Urine Creatinine Urine Total Protein Fluid Total Protein Vancomycin Trough Rheumatoid Factor Complement C4 Miscellaneous Test Crossmatch 09/19/16 09/19/16 09/19/16 11:25 17:53 23:36 WBC RBC Hgb Hct MCV MCH MCHC RDW Plt Count Lymph % (Auto) [place] % (Auto) Lymph # [place] # Baso # Seg Neutrophils % Seg Neuts % (Manual) Lymphocytes % (Manual) Monocytes % (Manual) Eosinophils % (Manual) Basophils % (Manual) Nucleated RBC % Seg Neutrophils # Seg Neutrophils # Man Lymphocytes # (Manual) Monocytes # (Manual) Eosinophils # (Manual) Basophils # (Manual) PT INR Fibrinogen dRVVT Confirm Interp Factor V Activity POC ABG pH POC ABG pCO2 POC ABG pO2 ABG pO2 ABG HCO3 ABG Base Excess ABG Hemoglobin Oxyhemoglobin Sodium Potassium Chloride Carbon Dioxide BUN Creatinine Glucose POC Glucose 160 H 245 H 121 H Lactic Acid Calcium Phosphorus Magnesium Direct Bilirubin AST ALT Alkaline Phosphatase Lactate Dehydrogenase Troponin T C-Reactive Protein Total Protein Albumin Prealbumin Triglycerides Cholesterol LDL Cholesterol Direct HDL Cholesterol PTH Intact Urine pH Urine WBC (Auto) Urine Creatinine Urine Total Protein Fluid Total Protein Vancomycin Trough Rheumatoid Factor Complement C4 Miscellaneous Test Crossmatch 09/20/16 09/20/16 09/20/16 04:10 04:10 04:10 WBC 17.0 H RBC 3.21 L Hgb 8.2 L Hct 25.5 L MCV MCH 26 L MCHC RDW 20.9 H Plt Count Lymph % (Auto) [place] % (Auto) Lymph # [place] # Baso # Seg Neutrophils % Seg Neuts % (Manual) Lymphocytes % (Manual) Monocytes % (Manual) Eosinophils % (Manual) Basophils % (Manual) Nucleated RBC % Seg Neutrophils # Seg Neutrophils # Man Lymphocytes # (Manual) Monocytes # (Manual) Eosinophils # (Manual) Basophils # (Manual) PT INR Fibrinogen dRVVT Confirm Interp Factor V Activity POC ABG pH POC ABG pCO2 POC ABG pO2 ABG pO2 ABG HCO3 ABG Base Excess ABG Hemoglobin Oxyhemoglobin Sodium Potassium Chloride 111.0 H Carbon Dioxide 16 L BUN 129 H Creatinine 3.7 H Glucose 115 H POC Glucose Lactic Acid Calcium 8.2 L Phosphorus Magnesium Direct Bilirubin AST ALT Alkaline Phosphatase Lactate Dehydrogenase Troponin T C-Reactive Protein Total Protein Albumin Prealbumin Triglycerides 243 H Cholesterol LDL Cholesterol Direct HDL Cholesterol PTH Intact Urine pH Urine WBC (Auto) Urine Creatinine Urine Total Protein Fluid Total Protein Vancomycin Trough Rheumatoid Factor Complement C4 Miscellaneous Test Crossmatch 09/20/16 09/20/16 09/20/16 05:40 11:52 16:50 WBC RBC Hgb Hct MCV MCH MCHC RDW Plt Count Lymph % (Auto) [place] % (Auto) Lymph # [place] # Baso # Seg Neutrophils % Seg Neuts % (Manual) Lymphocytes % (Manual) Monocytes % (Manual) Eosinophils % (Manual) Basophils % (Manual) Nucleated RBC % Seg Neutrophils # Seg Neutrophils # Man Lymphocytes # (Manual) Monocytes # (Manual) Eosinophils # (Manual) Basophils # (Manual) PT INR Fibrinogen dRVVT Confirm Interp Factor V Activity POC ABG pH POC ABG pCO2 POC ABG pO2 ABG pO2 ABG HCO3 ABG Base Excess ABG Hemoglobin Oxyhemoglobin Sodium Potassium Chloride Carbon Dioxide BUN Creatinine Glucose POC Glucose 131 H 183 H 236 H Lactic Acid Calcium Phosphorus Magnesium Direct Bilirubin AST ALT Alkaline Phosphatase Lactate Dehydrogenase Troponin T C-Reactive Protein Total Protein Albumin Prealbumin Triglycerides Cholesterol LDL Cholesterol Direct HDL Cholesterol PTH Intact Urine pH Urine WBC (Auto) Urine Creatinine Urine Total Protein Fluid Total Protein Vancomycin Trough Rheumatoid Factor Complement C4 Miscellaneous Test Crossmatch 09/20/16 09/21/16 09/21/16 23:51 03:30 04:44 WBC RBC Hgb Hct MCV MCH MCHC RDW Plt Count Lymph % (Auto) [place] % (Auto) Lymph # [place] # Baso # Seg Neutrophils % Seg Neuts % (Manual) Lymphocytes % (Manual) Monocytes % (Manual) Eosinophils % (Manual) Basophils % (Manual) Nucleated RBC % Seg Neutrophils # Seg Neutrophils # Man Lymphocytes # (Manual) Monocytes # (Manual) Eosinophils # (Manual) Basophils # (Manual) PT INR Fibrinogen dRVVT Confirm Interp Factor V Activity POC ABG pH POC ABG pCO2 POC ABG pO2 ABG pO2 ABG HCO3 ABG Base Excess ABG Hemoglobin Oxyhemoglobin Sodium Potassium Chloride Carbon Dioxide BUN Creatinine Glucose POC Glucose 114 H 141 H Lactic Acid Calcium Phosphorus Magnesium 2.70 H Direct Bilirubin AST ALT Alkaline Phosphatase Lactate Dehydrogenase Troponin T C-Reactive Protein Total Protein Albumin Prealbumin Triglycerides Cholesterol LDL Cholesterol Direct HDL Cholesterol PTH Intact Urine pH Urine WBC (Auto) Urine Creatinine Urine Total Protein Fluid Total Protein Vancomycin Trough Rheumatoid Factor Complement C4 Miscellaneous Test Crossmatch 09/21/16 09/21/16 09/21/16 07:45 07:45 10:01 WBC 13.8 H RBC 2.94 L Hgb 7.5 L Hct 23.5 L MCV MCH 26 L MCHC RDW 21.2 H Plt Count Lymph % (Auto) 6.9 L [place] % (Auto) 9.4 H Lymph # 0.9 L [place]cock # 1.3 H Baso # Seg Neutrophils % 83.2 H Seg Neuts % (Manual) Lymphocytes % (Manual) Monocytes % (Manual) Eosinophils % (Manual) Basophils % (Manual) Nucleated RBC % Seg Neutrophils # 11.5 H Seg Neutrophils # Man Lymphocytes # (Manual) Monocytes # (Manual) Eosinophils # (Manual) Basophils # (Manual) PT INR Fibrinogen dRVVT Confirm Interp Factor V Activity POC ABG pH 7.308 L POC ABG pCO2 31.9 L POC ABG pO2 148 H ABG pO2 ABG HCO3 ABG Base Excess ABG Hemoglobin Oxyhemoglobin Sodium 147 H Potassium Chloride 114.2 H Carbon Dioxide 15 L BUN 120 H Creatinine 3.9 H Glucose 156 H POC Glucose Lactic Acid Calcium 8.2 L Phosphorus Magnesium Direct Bilirubin AST ALT Alkaline Phosphatase Lactate Dehydrogenase Troponin T C-Reactive Protein Total Protein Albumin Prealbumin Triglycerides Cholesterol LDL Cholesterol Direct HDL Cholesterol PTH Intact Urine pH Urine WBC (Auto) Urine Creatinine Urine Total Protein Fluid Total Protein Vancomycin Trough Rheumatoid Factor Complement C4 Miscellaneous Test Crossmatch 09/21/16 09/21/16 09/21/16 12:00 12:03 13:00 WBC RBC Hgb Hct MCV MCH MCHC RDW Plt Count Lymph % (Auto) [place] % (Auto) Lymph # [place] # Baso # Seg Neutrophils % Seg Neuts % (Manual) Lymphocytes % (Manual) Monocytes % (Manual) Eosinophils % (Manual) Basophils % (Manual) Nucleated RBC % Seg Neutrophils # Seg Neutrophils # Man Lymphocytes # (Manual) Monocytes # (Manual) Eosinophils # (Manual) Basophils # (Manual) PT INR Fibrinogen dRVVT Confirm Interp Factor V Activity POC ABG pH POC ABG pCO2 POC ABG pO2 ABG pO2 ABG HCO3 ABG Base Excess ABG Hemoglobin Oxyhemoglobin Sodium Potassium Chloride Carbon Dioxide BUN Creatinine Glucose POC Glucose 163 H Lactic Acid Calcium Phosphorus Magnesium Direct Bilirubin AST ALT Alkaline Phosphatase Lactate Dehydrogenase Troponin T C-Reactive Protein Total Protein Albumin Prealbumin Triglycerides Cholesterol LDL Cholesterol Direct HDL Cholesterol PTH Intact Urine pH Urine WBC (Auto) Urine Creatinine 54.8 H Urine Total Protein Fluid Total Protein Vancomycin Trough 2.3 L Rheumatoid Factor Complement C4 Miscellaneous Test Crossmatch 09/21/16 09/21/16 09/22/16 16:51 23:17 06:27 WBC RBC Hgb Hct MCV MCH MCHC RDW Plt Count Lymph % (Auto) [place] % (Auto) Lymph # [place] # Baso # Seg Neutrophils % Seg Neuts % (Manual) Lymphocytes % (Manual) Monocytes % (Manual) Eosinophils % (Manual) Basophils % (Manual) Nucleated RBC % Seg Neutrophils # Seg Neutrophils # Man Lymphocytes # (Manual) Monocytes # (Manual) Eosinophils # (Manual) Basophils # (Manual) PT INR Fibrinogen dRVVT Confirm Interp Factor V Activity POC ABG pH POC ABG pCO2 POC ABG pO2 ABG pO2 ABG HCO3 ABG Base Excess ABG Hemoglobin Oxyhemoglobin Sodium Potassium Chloride Carbon Dioxide BUN Creatinine Glucose POC Glucose 206 H 114 H 115 H Lactic Acid Calcium Phosphorus Magnesium Direct Bilirubin AST ALT Alkaline Phosphatase Lactate Dehydrogenase Troponin T C-Reactive Protein Total Protein Albumin Prealbumin Triglycerides Cholesterol LDL Cholesterol Direct HDL Cholesterol PTH Intact Urine pH Urine WBC (Auto) Urine Creatinine Urine Total Protein Fluid Total Protein Vancomycin Trough Rheumatoid Factor Complement C4 Miscellaneous Test Crossmatch 09/22/16 09/22/16 09/22/16 07:50 07:50 12:00 WBC 17.8 H RBC 3.04 L Hgb 8.0 L Hct 24.7 L MCV MCH 26 L MCHC RDW 21.6 H Plt Count Lymph % (Auto) [place] % (Auto) Lymph # [place]cock # Baso # Seg Neutrophils % Seg Neuts % (Manual) Lymphocytes % (Manual) Monocytes % (Manual) Eosinophils % (Manual) Basophils % (Manual) Nucleated RBC % Seg Neutrophils # Seg Neutrophils # Man Lymphocytes # (Manual) Monocytes # (Manual) Eosinophils # (Manual) Basophils # (Manual) PT INR Fibrinogen dRVVT Confirm Interp Factor V Activity POC ABG pH POC ABG pCO2 POC ABG pO2 ABG pO2 ABG HCO3 ABG Base Excess ABG Hemoglobin Oxyhemoglobin Sodium 150 H Potassium Chloride 118.2 H Carbon Dioxide 14 L BUN 111 H Creatinine 3.7 H Glucose 157 H POC Glucose 183 H Lactic Acid Calcium Phosphorus Magnesium Direct Bilirubin AST ALT Alkaline Phosphatase Lactate Dehydrogenase Troponin T C-Reactive Protein Total Protein Albumin Prealbumin Triglycerides Cholesterol LDL Cholesterol Direct HDL Cholesterol PTH Intact Urine pH Urine WBC (Auto) Urine Creatinine Urine Total Protein Fluid Total Protein Vancomycin Trough Rheumatoid Factor Complement C4 Miscellaneous Test Crossmatch 09/22/16 09/22/16 09/23/16 17:29 23:10 05:00 WBC 19.2 H RBC 3.13 L Hgb 8.0 L Hct 25.2 L MCV MCH 26 L MCHC RDW 22.1 H Plt Count Lymph % (Auto) [place] % (Auto) Lymph # [place] # Baso # Seg Neutrophils % Seg Neuts % (Manual) 92.0 H Lymphocytes % (Manual) 3.0 L Monocytes % (Manual) Eosinophils % (Manual) Basophils % (Manual) Nucleated RBC % Seg Neutrophils # Seg Neutrophils # Man 17.7 H Lymphocytes # (Manual) 0.6 L Monocytes # (Manual) Eosinophils # (Manual) Basophils # (Manual) PT INR Fibrinogen dRVVT Confirm Interp Factor V Activity POC ABG pH POC ABG pCO2 POC ABG pO2 ABG pO2 ABG HCO3 ABG Base Excess ABG Hemoglobin Oxyhemoglobin Sodium Potassium Chloride Carbon Dioxide BUN Creatinine Glucose POC Glucose 197 H 169 H Lactic Acid Calcium Phosphorus Magnesium Direct Bilirubin AST ALT Alkaline Phosphatase Lactate Dehydrogenase Troponin T C-Reactive Protein Total Protein Albumin Prealbumin Triglycerides Cholesterol LDL Cholesterol Direct HDL Cholesterol PTH Intact Urine pH Urine WBC (Auto) Urine Creatinine Urine Total Protein Fluid Total Protein Vancomycin Trough Rheumatoid Factor Complement C4 Miscellaneous Test Crossmatch 09/23/16 09/23/16 09/23/16 05:00 05:00 05:10 WBC RBC Hgb Hct MCV MCH MCHC RDW Plt Count Lymph % (Auto) [place] % (Auto) Lymph # [place] # Baso # Seg Neutrophils % Seg Neuts % (Manual) Lymphocytes % (Manual) Monocytes % (Manual) Eosinophils % (Manual) Basophils % (Manual) Nucleated RBC % Seg Neutrophils # Seg Neutrophils # Man Lymphocytes # (Manual) Monocytes # (Manual) Eosinophils # (Manual) Basophils # (Manual) PT INR Fibrinogen dRVVT Confirm Interp Factor V Activity POC ABG pH POC ABG pCO2 POC ABG pO2 ABG pO2 ABG HCO3 ABG Base Excess ABG Hemoglobin Oxyhemoglobin Sodium 147 H Potassium 3.2 L Chloride 115.7 H Carbon Dioxide 13 L BUN 111 H Creatinine 3.8 H Glucose 194 H POC Glucose 188 H Lactic Acid Calcium 7.3 L D Phosphorus Magnesium Direct Bilirubin AST ALT Alkaline Phosphatase Lactate Dehydrogenase Troponin T C-Reactive Protein 3.20 H Total Protein Albumin Prealbumin Triglycerides Cholesterol LDL Cholesterol Direct HDL Cholesterol PTH Intact Urine pH Urine WBC (Auto) Urine Creatinine Urine Total Protein Fluid Total Protein Vancomycin Trough Rheumatoid Factor Complement C4 Miscellaneous Test Crossmatch 09/23/16 09/23/16 09/23/16 11:37 12:29 18:01 WBC RBC Hgb Hct MCV MCH MCHC RDW Plt Count Lymph % (Auto) [place] % (Auto) Lymph # [place] # Baso # Seg Neutrophils % Seg Neuts % (Manual) Lymphocytes % (Manual) Monocytes % (Manual) Eosinophils % (Manual) Basophils % (Manual) Nucleated RBC % Seg Neutrophils # Seg Neutrophils # Man Lymphocytes # (Manual) Monocytes # (Manual) Eosinophils # (Manual) Basophils # (Manual) PT INR Fibrinogen dRVVT Confirm Interp Factor V Activity POC ABG pH POC ABG pCO2 18.9 L POC ABG pO2 143 H ABG pO2 ABG HCO3 ABG Base Excess ABG Hemoglobin Oxyhemoglobin Sodium Potassium Chloride Carbon Dioxide BUN Creatinine Glucose POC Glucose 153 H 108 H Lactic Acid Calcium Phosphorus Magnesium Direct Bilirubin AST ALT Alkaline Phosphatase Lactate Dehydrogenase Troponin T C-Reactive Protein Total Protein Albumin Prealbumin Triglycerides Cholesterol LDL Cholesterol Direct HDL Cholesterol PTH Intact Urine pH Urine WBC (Auto) Urine Creatinine Urine Total Protein Fluid Total Protein Vancomycin Trough Rheumatoid Factor Complement C4 Miscellaneous Test Crossmatch 09/23/16 09/23/16 09/24/16 21:19 23:43 05:16 WBC RBC Hgb Hct MCV MCH MCHC RDW Plt Count Lymph % (Auto) [place] % (Auto) Lymph # [place] # Baso # Seg Neutrophils % Seg Neuts % (Manual) Lymphocytes % (Manual) Monocytes % (Manual) Eosinophils % (Manual) Basophils % (Manual) Nucleated RBC % Seg Neutrophils # Seg Neutrophils # Man Lymphocytes # (Manual) Monocytes # (Manual) Eosinophils # (Manual) Basophils # (Manual) PT INR Fibrinogen dRVVT Confirm Interp Factor V Activity POC ABG pH POC ABG pCO2 17.3 L POC ABG pO2 112 H ABG pO2 ABG HCO3 ABG Base Excess ABG Hemoglobin Oxyhemoglobin Sodium Potassium Chloride Carbon Dioxide BUN Creatinine Glucose POC Glucose 143 H 164 H Lactic Acid Calcium Phosphorus Magnesium Direct Bilirubin AST ALT Alkaline Phosphatase Lactate Dehydrogenase Troponin T C-Reactive Protein Total Protein Albumin Prealbumin Triglycerides Cholesterol LDL Cholesterol Direct HDL Cholesterol PTH Intact Urine pH Urine WBC (Auto) Urine Creatinine Urine Total Protein Fluid Total Protein Vancomycin Trough Rheumatoid Factor Complement C4 Miscellaneous Test Crossmatch 09/24/16 09/24/16 09/24/16 05:21 11:58 17:06 WBC RBC Hgb Hct MCV MCH MCHC RDW Plt Count Lymph % (Auto) [place] % (Auto) Lymph # [place] # Baso # Seg Neutrophils % Seg Neuts % (Manual) Lymphocytes % (Manual) Monocytes % (Manual) Eosinophils % (Manual) Basophils % (Manual) Nucleated RBC % Seg Neutrophils # Seg Neutrophils # Man Lymphocytes # (Manual) Monocytes # (Manual) Eosinophils # (Manual) Basophils # (Manual) PT INR Fibrinogen dRVVT Confirm Interp Factor V Activity POC ABG pH POC ABG pCO2 POC ABG pO2 ABG pO2 ABG HCO3 ABG Base Excess ABG Hemoglobin Oxyhemoglobin Sodium Potassium Chloride Carbon Dioxide 10 L BUN 103 H Creatinine 4.3 H Glucose 163 H POC Glucose 173 H 167 H Lactic Acid Calcium 6.5 L Phosphorus Magnesium Direct Bilirubin AST ALT Alkaline Phosphatase Lactate Dehydrogenase Troponin T C-Reactive Protein Total Protein Albumin Prealbumin Triglycerides Cholesterol LDL Cholesterol Direct HDL Cholesterol PTH Intact Urine pH Urine WBC (Auto) Urine Creatinine Urine Total Protein Fluid Total Protein Vancomycin Trough Rheumatoid Factor Complement C4 Miscellaneous Test Crossmatch 09/24/16 09/24/16 09/24/16 20:15 21:02 23:48 WBC RBC Hgb Hct MCV MCH MCHC RDW Plt Count Lymph % (Auto) [place] % (Auto) Lymph # [place] # Baso # Seg Neutrophils % Seg Neuts % (Manual) Lymphocytes % (Manual) Monocytes % (Manual) Eosinophils % (Manual) Basophils % (Manual) Nucleated RBC % Seg Neutrophils # Seg Neutrophils # Man Lymphocytes # (Manual) Monocytes # (Manual) Eosinophils # (Manual) Basophils # (Manual) PT INR Fibrinogen dRVVT Confirm Interp Factor V Activity POC ABG pH 7.288 L POC ABG pCO2 30.2 L 21.5 L POC ABG pO2 32 L 39 L ABG pO2 ABG HCO3 ABG Base Excess ABG Hemoglobin Oxyhemoglobin Sodium Potassium Chloride Carbon Dioxide BUN Creatinine Glucose POC Glucose 109 H Lactic Acid Calcium Phosphorus Magnesium Direct Bilirubin AST ALT Alkaline Phosphatase Lactate Dehydrogenase Troponin T C-Reactive Protein Total Protein Albumin Prealbumin Triglycerides Cholesterol LDL Cholesterol Direct HDL Cholesterol PTH Intact Urine pH Urine WBC (Auto) Urine Creatinine Urine Total Protein Fluid Total Protein Vancomycin Trough Rheumatoid Factor Complement C4 Miscellaneous Test Crossmatch 09/25/16 09/25/16 09/25/16 04:20 04:20 04:20 WBC RBC 2.58 L Hgb 7.0 L Hct 21.0 L MCV MCH 27 L MCHC RDW 23.8 H Plt Count Lymph % (Auto) [place] % (Auto) Lymph # [place] # Baso # Seg Neutrophils % Seg Neuts % (Manual) Lymphocytes % (Manual) 12.0 L Monocytes % (Manual) Eosinophils % (Manual) 7.0 H Basophils % (Manual) 2.0 H Nucleated RBC % Seg Neutrophils # Seg Neutrophils # Man Lymphocytes # (Manual) 0.9 L Monocytes # (Manual) Eosinophils # (Manual) 0.5 H Basophils # (Manual) PT INR Fibrinogen dRVVT Confirm Interp Factor V Activity POC ABG pH POC ABG pCO2 POC ABG pO2 ABG pO2 ABG HCO3 ABG Base Excess ABG Hemoglobin Oxyhemoglobin Sodium Potassium Chloride Carbon Dioxide 15 L BUN 72 H Creatinine 3.8 H Glucose POC Glucose Lactic Acid Calcium 6.0 L Phosphorus 4.60 H Magnesium 1.60 L Direct Bilirubin AST ALT Alkaline Phosphatase Lactate Dehydrogenase Troponin T C-Reactive Protein Total Protein Albumin Prealbumin Triglycerides Cholesterol LDL Cholesterol Direct HDL Cholesterol PTH Intact Urine pH Urine WBC (Auto) Urine Creatinine Urine Total Protein Fluid Total Protein Vancomycin Trough Rheumatoid Factor Complement C4 Miscellaneous Test Crossmatch 09/25/16 09/25/16 09/25/16 04:57 08:02 10:30 WBC RBC Hgb Hct MCV MCH MCHC RDW Plt Count Lymph % (Auto) [place] % (Auto) Lymph # [place] # Baso # Seg Neutrophils % Seg Neuts % (Manual) Lymphocytes % (Manual) Monocytes % (Manual) Eosinophils % (Manual) Basophils % (Manual) Nucleated RBC % Seg Neutrophils # Seg Neutrophils # Man Lymphocytes # (Manual) Monocytes # (Manual) Eosinophils # (Manual) Basophils # (Manual) PT INR Fibrinogen dRVVT Confirm Interp Factor V Activity POC ABG pH POC ABG pCO2 24.7 L POC ABG pO2 152 H ABG pO2 ABG HCO3 ABG Base Excess ABG Hemoglobin Oxyhemoglobin Sodium Potassium Chloride Carbon Dioxide BUN Creatinine Glucose POC Glucose 113 H Lactic Acid Calcium Phosphorus Magnesium Direct Bilirubin AST ALT Alkaline Phosphatase Lactate Dehydrogenase Troponin T C-Reactive Protein Total Protein Albumin Prealbumin Triglycerides Cholesterol LDL Cholesterol Direct HDL Cholesterol PTH Intact Urine pH Urine WBC (Auto) Urine Creatinine Urine Total Protein Fluid Total Protein Vancomycin Trough Rheumatoid Factor Complement C4 Miscellaneous Test Crossmatch See Detail 09/25/16 09/25/16 09/25/16 12:05 17:44 23:47 WBC RBC Hgb Hct MCV MCH MCHC RDW Plt Count Lymph % (Auto) [place] % (Auto) Lymph # [place] # Baso # Seg Neutrophils % Seg Neuts % (Manual) Lymphocytes % (Manual) Monocytes % (Manual) Eosinophils % (Manual) Basophils % (Manual) Nucleated RBC % Seg Neutrophils # Seg Neutrophils # Man Lymphocytes # (Manual) Monocytes # (Manual) Eosinophils # (Manual) Basophils # (Manual) PT INR Fibrinogen dRVVT Confirm Interp Factor V Activity POC ABG pH POC ABG pCO2 POC ABG pO2 ABG pO2 ABG HCO3 ABG Base Excess ABG Hemoglobin Oxyhemoglobin Sodium Potassium Chloride Carbon Dioxide BUN Creatinine Glucose POC Glucose 117 H 119 H 150 H Lactic Acid Calcium Phosphorus Magnesium Direct Bilirubin AST ALT Alkaline Phosphatase Lactate Dehydrogenase Troponin T C-Reactive Protein Total Protein Albumin Prealbumin Triglycerides Cholesterol LDL Cholesterol Direct HDL Cholesterol PTH Intact Urine pH Urine WBC (Auto) Urine Creatinine Urine Total Protein Fluid Total Protein Vancomycin Trough Rheumatoid Factor Complement C4 Miscellaneous Test Crossmatch 09/26/16 09/26/16 09/26/16 04:25 04:25 04:25 WBC RBC 2.65 L Hgb 7.4 L Hct 21.6 L MCV MCH MCHC RDW 22.5 H Plt Count Lymph % (Auto) [place] % (Auto) Lymph # [place] # Baso # Seg Neutrophils % Seg Neuts % (Manual) Lymphocytes % (Manual) 6.0 L Monocytes % (Manual) Eosinophils % (Manual) 11.0 H Basophils % (Manual) Nucleated RBC % Seg Neutrophils # Seg Neutrophils # Man Lymphocytes # (Manual) 0.4 L Monocytes # (Manual) Eosinophils # (Manual) 0.6 H Basophils # (Manual) PT INR Fibrinogen dRVVT Confirm Interp Factor V Activity POC ABG pH POC ABG pCO2 POC ABG pO2 ABG pO2 ABG HCO3 ABG Base Excess ABG Hemoglobin Oxyhemoglobin Sodium Potassium Chloride 97.0 L Carbon Dioxide 19 L BUN 43 H Creatinine 2.6 H Glucose 130 H POC Glucose Lactic Acid 4.40 H* Calcium 6.7 L Phosphorus Magnesium Direct Bilirubin AST ALT Alkaline Phosphatase Lactate Dehydrogenase Troponin T C-Reactive Protein Total Protein Albumin Prealbumin Triglycerides Cholesterol LDL Cholesterol Direct HDL Cholesterol PTH Intact Urine pH Urine WBC (Auto) Urine Creatinine Urine Total Protein Fluid Total Protein Vancomycin Trough Rheumatoid Factor Complement C4 Miscellaneous Test Crossmatch 09/26/16 09/26/16 09/26/16 05:20 11:44 12:12 WBC RBC Hgb Hct MCV MCH MCHC RDW Plt Count Lymph % (Auto) [place] % (Auto) Lymph # [place] # Baso # Seg Neutrophils % Seg Neuts % (Manual) Lymphocytes % (Manual) Monocytes % (Manual) Eosinophils % (Manual) Basophils % (Manual) Nucleated RBC % Seg Neutrophils # Seg Neutrophils # Man Lymphocytes # (Manual) Monocytes # (Manual) Eosinophils # (Manual) Basophils # (Manual) PT INR Fibrinogen dRVVT Confirm Interp Factor V Activity POC ABG pH POC ABG pCO2 27.0 L POC ABG pO2 69 L ABG pO2 ABG HCO3 ABG Base Excess ABG Hemoglobin Oxyhemoglobin Sodium Potassium Chloride Carbon Dioxide BUN Creatinine Glucose POC Glucose 121 H 128 H Lactic Acid Calcium Phosphorus Magnesium Direct Bilirubin AST ALT Alkaline Phosphatase Lactate Dehydrogenase Troponin T C-Reactive Protein Total Protein Albumin Prealbumin Triglycerides Cholesterol LDL Cholesterol Direct HDL Cholesterol PTH Intact Urine pH Urine WBC (Auto) Urine Creatinine Urine Total Protein Fluid Total Protein Vancomycin Trough Rheumatoid Factor Complement C4 Miscellaneous Test Crossmatch 09/26/16 09/26/16 09/27/16 18:31 23:40 08:20 WBC RBC Hgb Hct MCV MCH MCHC RDW Plt Count Lymph % (Auto) [place] % (Auto) Lymph # [place] # Baso # Seg Neutrophils % Seg Neuts % (Manual) Lymphocytes % (Manual) Monocytes % (Manual) Eosinophils % (Manual) Basophils % (Manual) Nucleated RBC % Seg Neutrophils # Seg Neutrophils # Man Lymphocytes # (Manual) Monocytes # (Manual) Eosinophils # (Manual) Basophils # (Manual) PT INR Fibrinogen dRVVT Confirm Interp Factor V Activity POC ABG pH POC ABG pCO2 POC ABG pO2 ABG pO2 ABG HCO3 ABG Base Excess ABG Hemoglobin Oxyhemoglobin Sodium Potassium Chloride Carbon Dioxide BUN Creatinine Glucose POC Glucose 120 H 133 H Lactic Acid 4.10 H* Calcium Phosphorus Magnesium Direct Bilirubin AST ALT Alkaline Phosphatase Lactate Dehydrogenase Troponin T C-Reactive Protein Total Protein Albumin Prealbumin Triglycerides Cholesterol LDL Cholesterol Direct HDL Cholesterol PTH Intact Urine pH Urine WBC (Auto) Urine Creatinine Urine Total Protein Fluid Total Protein Vancomycin Trough Rheumatoid Factor Complement C4 Miscellaneous Test Crossmatch 09/27/16 09/27/16 09/27/16 11:23 15:00 18:15 WBC RBC Hgb Hct MCV MCH MCHC RDW Plt Count Lymph % (Auto) [place] % (Auto) Lymph # [place] # Baso # Seg Neutrophils % Seg Neuts % (Manual) Lymphocytes % (Manual) Monocytes % (Manual) Eosinophils % (Manual) Basophils % (Manual) Nucleated RBC % Seg Neutrophils # Seg Neutrophils # Man Lymphocytes # (Manual) Monocytes # (Manual) Eosinophils # (Manual) Basophils # (Manual) PT INR Fibrinogen dRVVT Confirm Interp Factor V Activity POC ABG pH 7.459 H POC ABG pCO2 27.1 L POC ABG pO2 140 H ABG pO2 ABG HCO3 ABG Base Excess ABG Hemoglobin Oxyhemoglobin Sodium Potassium Chloride Carbon Dioxide BUN Creatinine Glucose POC Glucose 114 H 127 H Lactic Acid Calcium Phosphorus Magnesium Direct Bilirubin AST ALT Alkaline Phosphatase Lactate Dehydrogenase Troponin T C-Reactive Protein Total Protein Albumin Prealbumin Triglycerides Cholesterol LDL Cholesterol Direct HDL Cholesterol PTH Intact Urine pH Urine WBC (Auto) Urine Creatinine Urine Total Protein Fluid Total Protein Vancomycin Trough Rheumatoid Factor Complement C4 Miscellaneous Test Crossmatch 09/27/16 09/27/16 09/28/16 Unknown Unknown 03:45 WBC RBC 2.49 L Hgb 6.8 L Hct 20.7 L MCV MCH 27 L MCHC RDW 22.1 H Plt Count Lymph % (Auto) [place] % (Auto) Lymph # [place] # Baso # Seg Neutrophils % Seg Neuts % (Manual) 32.0 L Lymphocytes % (Manual) 12.0 L Monocytes % (Manual) 11.0 H Eosinophils % (Manual) 10.0 H Basophils % (Manual) Nucleated RBC % Seg Neutrophils # Seg Neutrophils # Man Lymphocytes # (Manual) 1.0 L Monocytes # (Manual) 0.9 H Eosinophils # (Manual) 0.8 H Basophils # (Manual) PT INR Fibrinogen dRVVT Confirm Interp Factor V Activity POC ABG pH POC ABG pCO2 POC ABG pO2 ABG pO2 ABG HCO3 ABG Base Excess ABG Hemoglobin Oxyhemoglobin Sodium 135 L 135 L Potassium 3.5 L Chloride 93.6 L 94.4 L Carbon Dioxide 17 L 21 L BUN 45 H 28 H Creatinine 3.3 H 2.5 H Glucose 106 H POC Glucose Lactic Acid Calcium 7.3 L 7.1 L Phosphorus Magnesium Direct Bilirubin AST ALT Alkaline Phosphatase Lactate Dehydrogenase Troponin T C-Reactive Protein Total Protein Albumin Prealbumin Triglycerides Cholesterol LDL Cholesterol Direct HDL Cholesterol PTH Intact Urine pH Urine WBC (Auto) Urine Creatinine Urine Total Protein Fluid Total Protein Vancomycin Trough Rheumatoid Factor Complement C4 Miscellaneous Test Crossmatch 09/28/16 09/28/16 09/28/16 03:45 07:25 11:58 WBC 13.3 H RBC 3.01 L Hgb 8.4 L Hct 25.0 L MCV MCH MCHC RDW 20.5 H Plt Count 128 L Lymph % (Auto) [place] % (Auto) Lymph # [place] # Baso # Seg Neutrophils % Seg Neuts % (Manual) Lymphocytes % (Manual) 7.0 L Monocytes % (Manual) Eosinophils % (Manual) 6.0 H Basophils % (Manual) Nucleated RBC % Seg Neutrophils # Seg Neutrophils # Man Lymphocytes # (Manual) 0.9 L Monocytes # (Manual) Eosinophils # (Manual) 0.8 H Basophils # (Manual) PT INR Fibrinogen dRVVT Confirm Interp Factor V Activity POC ABG pH POC ABG pCO2 POC ABG pO2 ABG pO2 ABG HCO3 ABG Base Excess ABG Hemoglobin Oxyhemoglobin Sodium Potassium Chloride Carbon Dioxide BUN Creatinine Glucose POC Glucose 121 H Lactic Acid 4.50 H* Calcium Phosphorus Magnesium Direct Bilirubin AST ALT Alkaline Phosphatase Lactate Dehydrogenase Troponin T C-Reactive Protein Total Protein Albumin Prealbumin Triglycerides Cholesterol LDL Cholesterol Direct HDL Cholesterol PTH Intact Urine pH Urine WBC (Auto) Urine Creatinine Urine Total Protein Fluid Total Protein Vancomycin Trough Rheumatoid Factor Complement C4 Miscellaneous Test Crossmatch 09/29/16 09/29/16 09/29/16 06:45 06:45 06:45 WBC 14.9 H RBC 2.74 L Hgb 7.6 L Hct 23.2 L MCV MCH MCHC RDW 20.5 H Plt Count 81 L Lymph % (Auto) [place] % (Auto) Lymph # [place] # Baso # Seg Neutrophils % Seg Neuts % (Manual) 81.0 H Lymphocytes % (Manual) 4.0 L Monocytes % (Manual) Eosinophils % (Manual) Basophils % (Manual) Nucleated RBC % Seg Neutrophils # Seg Neutrophils # Man 12.1 H Lymphocytes # (Manual) 0.6 L Monocytes # (Manual) Eosinophils # (Manual) Basophils # (Manual) PT INR Fibrinogen dRVVT Confirm Interp Factor V Activity POC ABG pH POC ABG pCO2 POC ABG pO2 ABG pO2 ABG HCO3 ABG Base Excess ABG Hemoglobin Oxyhemoglobin Sodium 133 L Potassium 3.4 L Chloride 92.5 L Carbon Dioxide 21 L BUN 33 H Creatinine 3.0 H Glucose POC Glucose Lactic Acid Calcium 6.6 L Phosphorus Magnesium 1.40 L Direct Bilirubin 0.9 H AST ALT Alkaline Phosphatase Lactate Dehydrogenase Troponin T C-Reactive Protein Total Protein 4.3 L Albumin 1.3 L Prealbumin Triglycerides Cholesterol LDL Cholesterol Direct HDL Cholesterol PTH Intact Urine pH Urine WBC (Auto) Urine Creatinine Urine Total Protein Fluid Total Protein Vancomycin Trough Rheumatoid Factor Complement C4 Miscellaneous Test Crossmatch 09/29/16 09/29/16 09/30/16 17:52 20:12 00:07 WBC RBC Hgb Hct MCV MCH MCHC RDW Plt Count Lymph % (Auto) [place] % (Auto) Lymph # [place] # Baso # Seg Neutrophils % Seg Neuts % (Manual) Lymphocytes % (Manual) Monocytes % (Manual) Eosinophils % (Manual) Basophils % (Manual) Nucleated RBC % Seg Neutrophils # Seg Neutrophils # Man Lymphocytes # (Manual) Monocytes # (Manual) Eosinophils # (Manual) Basophils # (Manual) PT INR Fibrinogen dRVVT Confirm Interp Factor V Activity POC ABG pH POC ABG pCO2 POC ABG pO2 ABG pO2 ABG HCO3 ABG Base Excess ABG Hemoglobin Oxyhemoglobin Sodium Potassium Chloride Carbon Dioxide BUN Creatinine Glucose POC Glucose 50 L 51 L Lactic Acid Calcium Phosphorus Magnesium Direct Bilirubin AST ALT Alkaline Phosphatase Lactate Dehydrogenase Troponin T 0.204 H* C-Reactive Protein Total Protein Albumin Prealbumin Triglycerides Cholesterol 31 L LDL Cholesterol Direct 4 L HDL Cholesterol 3 L PTH Intact Urine pH Urine WBC (Auto) Urine Creatinine Urine Total Protein Fluid Total Protein Vancomycin Trough Rheumatoid Factor Complement C4 Miscellaneous Test Crossmatch 09/30/16 09/30/16 09/30/16 01:30 05:15 06:10 WBC RBC Hgb Hct MCV MCH MCHC RDW Plt Count Lymph % (Auto) [place] % (Auto) Lymph # [place] # Baso # Seg Neutrophils % Seg Neuts % (Manual) Lymphocytes % (Manual) Monocytes % (Manual) Eosinophils % (Manual) Basophils % (Manual) Nucleated RBC % Seg Neutrophils # Seg Neutrophils # Man Lymphocytes # (Manual) Monocytes # (Manual) Eosinophils # (Manual) Basophils # (Manual) PT INR Fibrinogen dRVVT Confirm Interp Factor V Activity POC ABG pH POC ABG pCO2 POC ABG pO2 ABG pO2 ABG HCO3 ABG Base Excess ABG Hemoglobin Oxyhemoglobin Sodium 133 L Potassium 3.2 L Chloride 93.2 L Carbon Dioxide 19 L BUN 36 H Creatinine 3.2 H Glucose 104 H POC Glucose 167 H 146 H Lactic Acid Calcium 6.4 L Phosphorus Magnesium 1.60 L Direct Bilirubin AST ALT Alkaline Phosphatase Lactate Dehydrogenase Troponin T C-Reactive Protein Total Protein Albumin Prealbumin Triglycerides Cholesterol LDL Cholesterol Direct HDL Cholesterol PTH Intact Urine pH Urine WBC (Auto) Urine Creatinine Urine Total Protein Fluid Total Protein Vancomycin Trough Rheumatoid Factor Complement C4 Miscellaneous Test Crossmatch 09/30/16 09/30/16 09/30/16 11:26 13:39 18:38 WBC RBC Hgb Hct MCV MCH MCHC RDW Plt Count Lymph % (Auto) [place] % (Auto) Lymph # [place] # Baso # Seg Neutrophils % Seg Neuts % (Manual) Lymphocytes % (Manual) Monocytes % (Manual) Eosinophils % (Manual) Basophils % (Manual) Nucleated RBC % Seg Neutrophils # Seg Neutrophils # Man Lymphocytes # (Manual) Monocytes # (Manual) Eosinophils # (Manual) Basophils # (Manual) PT INR Fibrinogen dRVVT Confirm Interp Factor V Activity POC ABG pH 7.479 H POC ABG pCO2 29.8 L POC ABG pO2 117 H ABG pO2 ABG HCO3 ABG Base Excess ABG Hemoglobin Oxyhemoglobin Sodium Potassium Chloride Carbon Dioxide BUN Creatinine Glucose POC Glucose 140 H 122 H Lactic Acid Calcium Phosphorus Magnesium Direct Bilirubin AST ALT Alkaline Phosphatase Lactate Dehydrogenase Troponin T C-Reactive Protein Total Protein Albumin Prealbumin Triglycerides Cholesterol LDL Cholesterol Direct HDL Cholesterol PTH Intact Urine pH Urine WBC (Auto) Urine Creatinine Urine Total Protein Fluid Total Protein Vancomycin Trough Rheumatoid Factor Complement C4 Miscellaneous Test Crossmatch 08/12/17 08/12/17 08/12/17 06:00 06:00 12:37 WBC 12.6 H RBC 2.75 L Hgb 7.3 L Hct 23.3 L MCV MCH 27 L MCHC RDW 20.6 H Plt Count 72 L Lymph % (Auto) [place] % (Auto) Lymph # [place] # Baso # Seg Neutrophils % Seg Neuts % (Manual) 31.0 L Lymphocytes % (Manual) 8.0 L Monocytes % (Manual) Eosinophils % (Manual) Basophils % (Manual) Nucleated RBC % 3.0 H Seg Neutrophils # Seg Neutrophils # Man Lymphocytes # (Manual) 1.0 L Monocytes # (Manual) Eosinophils # (Manual) Basophils # (Manual) PT INR Fibrinogen dRVVT Confirm Interp Factor V Activity POC ABG pH POC ABG pCO2 POC ABG pO2 ABG pO2 ABG HCO3 ABG Base Excess ABG Hemoglobin Oxyhemoglobin Sodium 127 L Potassium Chloride 86.8 L Carbon Dioxide 20 L BUN 42 H Creatinine 3.5 H Glucose POC Glucose 65 L Lactic Acid Calcium 7.0 L Phosphorus Magnesium Direct Bilirubin AST ALT Alkaline Phosphatase Lactate Dehydrogenase Troponin T C-Reactive Protein Total Protein Albumin Prealbumin Triglycerides Cholesterol LDL Cholesterol Direct HDL Cholesterol PTH Intact Urine pH Urine WBC (Auto) Urine Creatinine Urine Total Protein Fluid Total Protein Vancomycin Trough Rheumatoid Factor Complement C4 Miscellaneous Test Crossmatch 10/01/16 10/01/16 10/02/16 17:39 23:32 00:59 WBC RBC Hgb Hct MCV MCH MCHC RDW Plt Count Lymph % (Auto) [place] % (Auto) Lymph # [place] # Baso # Seg Neutrophils % Seg Neuts % (Manual) Lymphocytes % (Manual) Monocytes % (Manual) Eosinophils % (Manual) Basophils % (Manual) Nucleated RBC % Seg Neutrophils # Seg Neutrophils # Man Lymphocytes # (Manual) Monocytes # (Manual) Eosinophils # (Manual) Basophils # (Manual) PT INR Fibrinogen dRVVT Confirm Interp Factor V Activity POC ABG pH POC ABG pCO2 POC ABG pO2 ABG pO2 ABG HCO3 ABG Base Excess ABG Hemoglobin Oxyhemoglobin Sodium Potassium Chloride Carbon Dioxide BUN Creatinine Glucose POC Glucose 107 H 52 L 145 H Lactic Acid Calcium Phosphorus Magnesium Direct Bilirubin AST ALT Alkaline Phosphatase Lactate Dehydrogenase Troponin T C-Reactive Protein Total Protein Albumin Prealbumin Triglycerides Cholesterol LDL Cholesterol Direct HDL Cholesterol PTH Intact Urine pH Urine WBC (Auto) Urine Creatinine Urine Total Protein Fluid Total Protein Vancomycin Trough Rheumatoid Factor Complement C4 Miscellaneous Test Crossmatch 10/02/16 10/02/16 10/02/16 10:30 10:50 10:50 WBC 14.7 H RBC 2.76 L Hgb 7.4 L Hct 23.6 L MCV MCH 27 L MCHC RDW 20.2 H Plt Count 79 L Lymph % (Auto) [place] % (Auto) Lymph # [place] # Baso # Seg Neutrophils % Seg Neuts % (Manual) 86.0 H Lymphocytes % (Manual) 6.0 L Monocytes % (Manual) Eosinophils % (Manual) Basophils % (Manual) Nucleated RBC % Seg Neutrophils # Seg Neutrophils # Man 12.6 H Lymphocytes # (Manual) 0.9 L Monocytes # (Manual) Eosinophils # (Manual) Basophils # (Manual) PT INR Fibrinogen dRVVT Confirm Interp Factor V Activity POC ABG pH 7.486 H POC ABG pCO2 30.1 L POC ABG pO2 108 H ABG pO2 ABG HCO3 ABG Base Excess ABG Hemoglobin Oxyhemoglobin Sodium 131 L Potassium 3.4 L Chloride 89.9 L Carbon Dioxide BUN 26 H Creatinine 2.6 H Glucose POC Glucose Lactic Acid Calcium 7.0 L Phosphorus Magnesium Direct Bilirubin AST ALT Alkaline Phosphatase Lactate Dehydrogenase Troponin T C-Reactive Protein Total Protein Albumin Prealbumin Triglycerides Cholesterol LDL Cholesterol Direct HDL Cholesterol PTH Intact Urine pH Urine WBC (Auto) Urine Creatinine Urine Total Protein Fluid Total Protein Vancomycin Trough Rheumatoid Factor Complement C4 Miscellaneous Test Crossmatch 10/02/16 10/03/16 10/03/16 23:45 00:45 05:10 WBC 12.9 H RBC 2.77 L Hgb 7.6 L Hct 23.7 L MCV MCH 27 L MCHC RDW 19.7 H Plt Count 89 L Lymph % (Auto) [place] % (Auto) Lymph # [place] # Baso # Seg Neutrophils % Seg Neuts % (Manual) Lymphocytes % (Manual) 8.0 L Monocytes % (Manual) Eosinophils % (Manual) Basophils % (Manual) Nucleated RBC % Seg Neutrophils # 11.9 H Seg Neutrophils # Man Lymphocytes # (Manual) 1.0 L Monocytes # (Manual) Eosinophils # (Manual) Basophils # (Manual) PT INR Fibrinogen dRVVT Confirm Interp Factor V Activity POC ABG pH POC ABG pCO2 POC ABG pO2 ABG pO2 ABG HCO3 ABG Base Excess ABG Hemoglobin Oxyhemoglobin Sodium Potassium Chloride Carbon Dioxide BUN Creatinine Glucose POC Glucose 55 L 199 H Lactic Acid Calcium Phosphorus Magnesium Direct Bilirubin AST ALT Alkaline Phosphatase Lactate Dehydrogenase Troponin T C-Reactive Protein Total Protein Albumin Prealbumin Triglycerides Cholesterol LDL Cholesterol Direct HDL Cholesterol PTH Intact Urine pH Urine WBC (Auto) Urine Creatinine Urine Total Protein Fluid Total Protein Vancomycin Trough Rheumatoid Factor Complement C4 Miscellaneous Test Crossmatch 10/03/16 10/03/16 10/03/16 05:10 12:14 13:18 WBC RBC Hgb Hct MCV MCH MCHC RDW Plt Count Lymph % (Auto) [place] % (Auto) Lymph # [place] # Baso # Seg Neutrophils % Seg Neuts % (Manual) Lymphocytes % (Manual) Monocytes % (Manual) Eosinophils % (Manual) Basophils % (Manual) Nucleated RBC % Seg Neutrophils # Seg Neutrophils # Man Lymphocytes # (Manual) Monocytes # (Manual) Eosinophils # (Manual) Basophils # (Manual) PT INR Fibrinogen dRVVT Confirm Interp Factor V Activity POC ABG pH POC ABG pCO2 POC ABG pO2 ABG pO2 ABG HCO3 ABG Base Excess ABG Hemoglobin Oxyhemoglobin Sodium 129 L Potassium 3.3 L Chloride 88.8 L Carbon Dioxide 20 L BUN 29 H Creatinine 2.8 H Glucose POC Glucose 68 L 127 H Lactic Acid Calcium 7.2 L Phosphorus Magnesium Direct Bilirubin AST ALT Alkaline Phosphatase Lactate Dehydrogenase Troponin T C-Reactive Protein Total Protein Albumin Prealbumin Triglycerides Cholesterol LDL Cholesterol Direct HDL Cholesterol PTH Intact Urine pH Urine WBC (Auto) Urine Creatinine Urine Total Protein Fluid Total Protein Vancomycin Trough Rheumatoid Factor Complement C4 Miscellaneous Test Crossmatch 10/03/16 10/03/16 10/03/16 14:42 18:21 19:09 WBC RBC Hgb Hct MCV MCH MCHC RDW Plt Count Lymph % (Auto) [place] % (Auto) Lymph # [place] # Baso # Seg Neutrophils % Seg Neuts % (Manual) Lymphocytes % (Manual) Monocytes % (Manual) Eosinophils % (Manual) Basophils % (Manual) Nucleated RBC % Seg Neutrophils # Seg Neutrophils # Man Lymphocytes # (Manual) Monocytes # (Manual) Eosinophils # (Manual) Basophils # (Manual) PT INR Fibrinogen dRVVT Confirm Interp Factor V Activity POC ABG pH 7.499 H POC ABG pCO2 28.4 L POC ABG pO2 44 L ABG pO2 ABG HCO3 ABG Base Excess ABG Hemoglobin Oxyhemoglobin Sodium Potassium Chloride Carbon Dioxide BUN Creatinine Glucose POC Glucose 64 L 205 H Lactic Acid Calcium Phosphorus Magnesium Direct Bilirubin AST ALT Alkaline Phosphatase Lactate Dehydrogenase Troponin T C-Reactive Protein Total Protein Albumin Prealbumin Triglycerides Cholesterol LDL Cholesterol Direct HDL Cholesterol PTH Intact Urine pH Urine WBC (Auto) Urine Creatinine Urine Total Protein Fluid Total Protein Vancomycin Trough Rheumatoid Factor Complement C4 Miscellaneous Test Crossmatch 10/03/16 10/04/16 10/04/16 23:33 04:18 06:30 WBC RBC 2.54 L Hgb 7.1 L Hct 21.7 L MCV MCH MCHC RDW 19.5 H Plt Count 76 L Lymph % (Auto) [place] % (Auto) Lymph # [place] # Baso # Seg Neutrophils % Seg Neuts % (Manual) 88.0 H Lymphocytes % (Manual) 6.0 L Monocytes % (Manual) Eosinophils % (Manual) Basophils % (Manual) Nucleated RBC % Seg Neutrophils # Seg Neutrophils # Man 8.8 H Lymphocytes # (Manual) 0.6 L Monocytes # (Manual) Eosinophils # (Manual) Basophils # (Manual) PT INR Fibrinogen dRVVT Confirm Interp Factor V Activity POC ABG pH 7.461 H POC ABG pCO2 33.6 L POC ABG pO2 211 H ABG pO2 ABG HCO3 ABG Base Excess ABG Hemoglobin Oxyhemoglobin Sodium Potassium Chloride Carbon Dioxide BUN Creatinine Glucose POC Glucose 136 H Lactic Acid Calcium Phosphorus Magnesium Direct Bilirubin AST ALT Alkaline Phosphatase Lactate Dehydrogenase Troponin T C-Reactive Protein Total Protein Albumin Prealbumin Triglycerides Cholesterol LDL Cholesterol Direct HDL Cholesterol PTH Intact Urine pH Urine WBC (Auto) Urine Creatinine Urine Total Protein Fluid Total Protein Vancomycin Trough Rheumatoid Factor Complement C4 Miscellaneous Test Crossmatch 10/04/16 10/04/16 10/04/16 06:30 11:45 17:54 WBC RBC Hgb Hct MCV MCH MCHC RDW Plt Count Lymph % (Auto) [place] % (Auto) Lymph # [place] # Baso # Seg Neutrophils % Seg Neuts % (Manual) Lymphocytes % (Manual) Monocytes % (Manual) Eosinophils % (Manual) Basophils % (Manual) Nucleated RBC % Seg Neutrophils # Seg Neutrophils # Man Lymphocytes # (Manual) Monocytes # (Manual) Eosinophils # (Manual) Basophils # (Manual) PT INR Fibrinogen dRVVT Confirm Interp Factor V Activity POC ABG pH POC ABG pCO2 POC ABG pO2 ABG pO2 ABG HCO3 ABG Base Excess ABG Hemoglobin Oxyhemoglobin Sodium 128 L Potassium Chloride 87.4 L Carbon Dioxide 20 L BUN 34 H Creatinine 2.9 H Glucose 127 H POC Glucose 158 H 160 H Lactic Acid Calcium 7.4 L Phosphorus Magnesium Direct Bilirubin AST ALT Alkaline Phosphatase Lactate Dehydrogenase Troponin T C-Reactive Protein Total Protein Albumin Prealbumin Triglycerides Cholesterol LDL Cholesterol Direct HDL Cholesterol PTH Intact Urine pH Urine WBC (Auto) Urine Creatinine Urine Total Protein Fluid Total Protein Vancomycin Trough Rheumatoid Factor Complement C4 Miscellaneous Test Crossmatch 10/04/16 10/05/16 10/05/16 23:25 04:30 05:00 WBC RBC 2.64 L Hgb 7.5 L Hct 22.6 L MCV MCH MCHC RDW 19.3 H Plt Count 80 L Lymph % (Auto) [place] % (Auto) Lymph # [place] # Baso # Seg Neutrophils % Seg Neuts % (Manual) Lymphocytes % (Manual) 12.0 L Monocytes % (Manual) Eosinophils % (Manual) Basophils % (Manual) Nucleated RBC % Seg Neutrophils # Seg Neutrophils # Man Lymphocytes # (Manual) Monocytes # (Manual) Eosinophils # (Manual) Basophils # (Manual) PT INR Fibrinogen dRVVT Confirm Interp Factor V Activity POC ABG pH 7.475 H POC ABG pCO2 33.3 L POC ABG pO2 140 H ABG pO2 ABG HCO3 ABG Base Excess ABG Hemoglobin Oxyhemoglobin Sodium Potassium Chloride Carbon Dioxide BUN Creatinine Glucose POC Glucose 141 H Lactic Acid Calcium Phosphorus Magnesium Direct Bilirubin AST ALT Alkaline Phosphatase Lactate Dehydrogenase Troponin T C-Reactive Protein Total Protein Albumin Prealbumin Triglycerides Cholesterol LDL Cholesterol Direct HDL Cholesterol PTH Intact Urine pH Urine WBC (Auto) Urine Creatinine Urine Total Protein Fluid Total Protein Vancomycin Trough Rheumatoid Factor Complement C4 Miscellaneous Test Crossmatch 10/05/16 10/05/16 10/05/16 05:00 05:09 12:58 WBC RBC Hgb Hct MCV MCH MCHC RDW Plt Count Lymph % (Auto) [place] % (Auto) Lymph # [place] # Baso # Seg Neutrophils % Seg Neuts % (Manual) Lymphocytes % (Manual) Monocytes % (Manual) Eosinophils % (Manual) Basophils % (Manual) Nucleated RBC % Seg Neutrophils # Seg Neutrophils # Man Lymphocytes # (Manual) Monocytes # (Manual) Eosinophils # (Manual) Basophils # (Manual) PT INR Fibrinogen dRVVT Confirm Interp Factor V Activity POC ABG pH POC ABG pCO2 POC ABG pO2 ABG pO2 ABG HCO3 ABG Base Excess ABG Hemoglobin Oxyhemoglobin Sodium 131 L Potassium Chloride 94.0 L Carbon Dioxide 20 L BUN 22 H Creatinine 2.0 H Glucose 123 H POC Glucose 166 H 179 H Lactic Acid Calcium 7.7 L Phosphorus 2.20 L D Magnesium Direct Bilirubin AST ALT Alkaline Phosphatase Lactate Dehydrogenase Troponin T C-Reactive Protein Total Protein Albumin Prealbumin Triglycerides Cholesterol LDL Cholesterol Direct HDL Cholesterol PTH Intact Urine pH Urine WBC (Auto) Urine Creatinine Urine Total Protein Fluid Total Protein Vancomycin Trough Rheumatoid Factor Complement C4 Miscellaneous Test Crossmatch 10/05/16 10/05/16 10/05/16 15:50 18:53 23:12 WBC RBC Hgb Hct MCV MCH MCHC RDW Plt Count Lymph % (Auto) [place] % (Auto) Lymph # [place] # Baso # Seg Neutrophils % Seg Neuts % (Manual) Lymphocytes % (Manual) Monocytes % (Manual) Eosinophils % (Manual) Basophils % (Manual) Nucleated RBC % Seg Neutrophils # Seg Neutrophils # Man Lymphocytes # (Manual) Monocytes # (Manual) Eosinophils # (Manual) Basophils # (Manual) PT INR Fibrinogen dRVVT Confirm Interp Factor V Activity POC ABG pH POC ABG pCO2 POC ABG pO2 ABG pO2 ABG HCO3 ABG Base Excess ABG Hemoglobin Oxyhemoglobin Sodium Potassium Chloride Carbon Dioxide BUN Creatinine Glucose POC Glucose 150 H 164 H Lactic Acid Calcium Phosphorus Magnesium Direct Bilirubin AST ALT Alkaline Phosphatase Lactate Dehydrogenase Troponin T C-Reactive Protein Total Protein Albumin Prealbumin Triglycerides Cholesterol LDL Cholesterol Direct HDL Cholesterol PTH Intact Urine pH Urine WBC (Auto) Urine Creatinine Urine Total Protein Fluid Total Protein Vancomycin Trough Rheumatoid Factor Complement C4 Miscellaneous Test Crossmatch See Detail 10/06/16 10/06/16 10/06/16 03:50 03:50 04:53 WBC RBC 3.00 L Hgb 8.6 L Hct 25.8 L MCV MCH MCHC RDW 17.9 H Plt Count 65 L Lymph % (Auto) [place] % (Auto) Lymph # [place] # Baso # Seg Neutrophils % Seg Neuts % (Manual) 30.0 L Lymphocytes % (Manual) 5.0 L Monocytes % (Manual) Eosinophils % (Manual) Basophils % (Manual) Nucleated RBC % Seg Neutrophils # Seg Neutrophils # Man Lymphocytes # (Manual) 0.4 L Monocytes # (Manual) Eosinophils # (Manual) Basophils # (Manual) PT INR Fibrinogen dRVVT Confirm Interp Factor V Activity POC ABG pH 7.310 L POC ABG pCO2 49.0 H POC ABG pO2 ABG pO2 ABG HCO3 ABG Base Excess ABG Hemoglobin Oxyhemoglobin Sodium 133 L Potassium Chloride 95.9 L Carbon Dioxide BUN 26 H Creatinine 2.0 H Glucose 116 H POC Glucose Lactic Acid Calcium 7.8 L Phosphorus Magnesium Direct Bilirubin AST ALT Alkaline Phosphatase Lactate Dehydrogenase Troponin T C-Reactive Protein Total Protein Albumin Prealbumin Triglycerides Cholesterol LDL Cholesterol Direct HDL Cholesterol PTH Intact Urine pH Urine WBC (Auto) Urine Creatinine Urine Total Protein Fluid Total Protein Vancomycin Trough Rheumatoid Factor Complement C4 Miscellaneous Test Crossmatch 10/06/16 10/06/16 10/06/16 05:23 11:52 18:34 WBC RBC Hgb Hct MCV MCH MCHC RDW Plt Count Lymph % (Auto) [place] % (Auto) Lymph # [place] # Baso # Seg Neutrophils % Seg Neuts % (Manual) Lymphocytes % (Manual) Monocytes % (Manual) Eosinophils % (Manual) Basophils % (Manual) Nucleated RBC % Seg Neutrophils # Seg Neutrophils # Man Lymphocytes # (Manual) Monocytes # (Manual) Eosinophils # (Manual) Basophils # (Manual) PT INR Fibrinogen dRVVT Confirm Interp Factor V Activity POC ABG pH POC ABG pCO2 POC ABG pO2 ABG pO2 ABG HCO3 ABG Base Excess ABG Hemoglobin Oxyhemoglobin Sodium Potassium Chloride Carbon Dioxide BUN Creatinine Glucose POC Glucose 126 H 116 H 129 H Lactic Acid Calcium Phosphorus Magnesium Direct Bilirubin AST ALT Alkaline Phosphatase Lactate Dehydrogenase Troponin T C-Reactive Protein Total Protein Albumin Prealbumin Triglycerides Cholesterol LDL Cholesterol Direct HDL Cholesterol PTH Intact Urine pH Urine WBC (Auto) Urine Creatinine Urine Total Protein Fluid Total Protein Vancomycin Trough Rheumatoid Factor Complement C4 Miscellaneous Test Crossmatch 10/07/16 10/07/16 10/07/16 03:45 05:00 10:00 WBC 17.0 H RBC 2.68 L Hgb 7.3 L Hct 25.3 L MCV MCH 27 L MCHC 29 L RDW 19.6 H Plt Count 74 L Lymph % (Auto) [place] % (Auto) Lymph # [place] # Baso # Seg Neutrophils % Seg Neuts % (Manual) Lymphocytes % (Manual) 12.0 L Monocytes % (Manual) Eosinophils % (Manual) Basophils % (Manual) Nucleated RBC % 4.0 H Seg Neutrophils # Seg Neutrophils # Man 10.7 H Lymphocytes # (Manual) Monocytes # (Manual) Eosinophils # (Manual) Basophils # (Manual) PT INR Fibrinogen dRVVT Confirm Interp Factor V Activity POC ABG pH POC ABG pCO2 POC ABG pO2 ABG pO2 ABG HCO3 ABG Base Excess ABG Hemoglobin Oxyhemoglobin Sodium 130 L Potassium 3.2 L Chloride 93.9 L Carbon Dioxide 20 L BUN 44 H Creatinine 2.7 H Glucose 129 H POC Glucose Lactic Acid Calcium 7.4 L Phosphorus Magnesium Direct Bilirubin AST ALT 6 L Alkaline Phosphatase 195 H Lactate Dehydrogenase Troponin T C-Reactive Protein Total Protein 4.9 L Albumin 1.0 L Prealbumin Triglycerides Cholesterol LDL Cholesterol Direct HDL Cholesterol PTH Intact Urine pH Urine WBC (Auto) Urine Creatinine Urine Total Protein Fluid Total Protein Vancomycin Trough Rheumatoid Factor Complement C4 Miscellaneous Test Flexitest 1 H Crossmatch 10/07/16 10/07/16 10/07/16 10:00 11:24 18:10 WBC RBC Hgb Hct MCV MCH MCHC RDW Plt Count Lymph % (Auto) [place] % (Auto) Lymph # [place] # Baso # Seg Neutrophils % Seg Neuts % (Manual) Lymphocytes % (Manual) Monocytes % (Manual) Eosinophils % (Manual) Basophils % (Manual) Nucleated RBC % Seg Neutrophils # Seg Neutrophils # Man Lymphocytes # (Manual) Monocytes # (Manual) Eosinophils # (Manual) Basophils # (Manual) PT INR Fibrinogen dRVVT Confirm Interp Factor V Activity POC ABG pH POC ABG pCO2 POC ABG pO2 ABG pO2 ABG HCO3 ABG Base Excess ABG Hemoglobin Oxyhemoglobin Sodium Potassium Chloride Carbon Dioxide BUN Creatinine Glucose POC Glucose 116 H 130 H Lactic Acid Calcium Phosphorus Magnesium Direct Bilirubin AST ALT Alkaline Phosphatase Lactate Dehydrogenase Troponin T C-Reactive Protein 19.40 H Total Protein Albumin Prealbumin Triglycerides Cholesterol LDL Cholesterol Direct HDL Cholesterol PTH Intact Urine pH Urine WBC (Auto) Urine Creatinine Urine Total Protein Fluid Total Protein Vancomycin Trough Rheumatoid Factor Complement C4 Miscellaneous Test Crossmatch 10/07/16 10/08/16 10/08/16 18:30 00:00 04:00 WBC RBC Hgb Hct MCV MCH MCHC RDW Plt Count Lymph % (Auto) [place] % (Auto) Lymph # [place] # Baso # Seg Neutrophils % Seg Neuts % (Manual) Lymphocytes % (Manual) Monocytes % (Manual) Eosinophils % (Manual) Basophils % (Manual) Nucleated RBC % Seg Neutrophils # Seg Neutrophils # Man Lymphocytes # (Manual) Monocytes # (Manual) Eosinophils # (Manual) Basophils # (Manual) PT INR Fibrinogen dRVVT Confirm Interp Factor V Activity POC ABG pH POC ABG pCO2 POC ABG pO2 ABG pO2 ABG HCO3 ABG Base Excess ABG Hemoglobin Oxyhemoglobin Sodium 132 L Potassium 3.3 L Chloride 93.6 L Carbon Dioxide 17 L BUN 59 H Creatinine 2.7 H Glucose 121 H POC Glucose 122 H Lactic Acid Calcium 7.6 L Phosphorus Magnesium Direct Bilirubin AST ALT Alkaline Phosphatase Lactate Dehydrogenase Troponin T C-Reactive Protein Total Protein Albumin Prealbumin Triglycerides Cholesterol LDL Cholesterol Direct HDL Cholesterol PTH Intact Urine pH Urine WBC (Auto) > 182.0 H Urine Creatinine Urine Total Protein Fluid Total Protein Vancomycin Trough Rheumatoid Factor Complement C4 Miscellaneous Test Crossmatch 10/08/16 10/08/16 10/08/16 04:30 05:30 11:51 WBC RBC 5.15 H Hgb 14.4 H D Hct 44.5 H D MCV MCH MCHC RDW 19.5 H Plt Count 56 L Lymph % (Auto) [place] % (Auto) Lymph # [place] # Baso # Seg Neutrophils % Seg Neuts % (Manual) 24.0 L Lymphocytes % (Manual) 8.0 L Monocytes % (Manual) Eosinophils % (Manual) Basophils % (Manual) Nucleated RBC % 9.0 H Seg Neutrophils # Seg Neutrophils # Man Lymphocytes # (Manual) 0.7 L Monocytes # (Manual) Eosinophils # (Manual) Basophils # (Manual) PT INR Fibrinogen dRVVT Confirm Interp Factor V Activity POC ABG pH POC ABG pCO2 POC ABG pO2 ABG pO2 ABG HCO3 ABG Base Excess ABG Hemoglobin Oxyhemoglobin Sodium Potassium Chloride Carbon Dioxide BUN Creatinine Glucose POC Glucose 125 H 150 H Lactic Acid Calcium Phosphorus Magnesium Direct Bilirubin AST ALT Alkaline Phosphatase Lactate Dehydrogenase Troponin T C-Reactive Protein Total Protein Albumin Prealbumin Triglycerides Cholesterol LDL Cholesterol Direct HDL Cholesterol PTH Intact Urine pH Urine WBC (Auto) Urine Creatinine Urine Total Protein Fluid Total Protein Vancomycin Trough Rheumatoid Factor Complement C4 Miscellaneous Test Crossmatch 10/08/16 10/08/16 10/08/16 12:49 17:07 19:30 WBC RBC Hgb 7.1 L D Hct 22.4 L D MCV MCH MCHC RDW Plt Count Lymph % (Auto) [place] % (Auto) Lymph # [place] # Baso # Seg Neutrophils % Seg Neuts % (Manual) Lymphocytes % (Manual) Monocytes % (Manual) Eosinophils % (Manual) Basophils % (Manual) Nucleated RBC % Seg Neutrophils # Seg Neutrophils # Man Lymphocytes # (Manual) Monocytes # (Manual) Eosinophils # (Manual) Basophils # (Manual) PT INR Fibrinogen dRVVT Confirm Interp Factor V Activity POC ABG pH POC ABG pCO2 28.2 L POC ABG pO2 111 H ABG pO2 ABG HCO3 ABG Base Excess ABG Hemoglobin Oxyhemoglobin Sodium Potassium Chloride Carbon Dioxide BUN Creatinine Glucose POC Glucose 145 H Lactic Acid Calcium Phosphorus Magnesium Direct Bilirubin AST ALT Alkaline Phosphatase Lactate Dehydrogenase Troponin T C-Reactive Protein Total Protein Albumin Prealbumin Triglycerides Cholesterol LDL Cholesterol Direct HDL Cholesterol PTH Intact Urine pH Urine WBC (Auto) Urine Creatinine Urine Total Protein Fluid Total Protein Vancomycin Trough Rheumatoid Factor Complement C4 Miscellaneous Test Crossmatch 10/08/16 10/09/16 10/09/16 19:30 03:45 03:45 WBC 12.6 H RBC 2.36 L Hgb 6.7 L Hct 21.1 L MCV MCH MCHC RDW 19.5 H Plt Count 75 L Lymph % (Auto) [place] % (Auto) Lymph # [place] # Baso # Seg Neutrophils % Seg Neuts % (Manual) Lymphocytes % (Manual) Monocytes % (Manual) 10.0 H Eosinophils % (Manual) Basophils % (Manual) Nucleated RBC % 3.0 H Seg Neutrophils # Seg Neutrophils # Man Lymphocytes # (Manual) Monocytes # (Manual) 1.3 H Eosinophils # (Manual) Basophils # (Manual) PT 18.0 H INR 1.41 H Fibrinogen dRVVT Confirm Interp Factor V Activity POC ABG pH POC ABG pCO2 POC ABG pO2 ABG pO2 ABG HCO3 ABG Base Excess ABG Hemoglobin Oxyhemoglobin Sodium 135 L Potassium Chloride Carbon Dioxide 17 L BUN 81 H Creatinine 3.2 H Glucose 109 H POC Glucose Lactic Acid Calcium 7.4 L Phosphorus 4.60 H D Magnesium Direct Bilirubin AST ALT Alkaline Phosphatase Lactate Dehydrogenase Troponin T C-Reactive Protein Total Protein Albumin Prealbumin Triglycerides Cholesterol LDL Cholesterol Direct HDL Cholesterol PTH Intact Urine pH Urine WBC (Auto) Urine Creatinine Urine Total Protein Fluid Total Protein Vancomycin Trough Rheumatoid Factor Complement C4 Miscellaneous Test Crossmatch 10/09/16 10/09/16 10/09/16 03:45 05:14 07:20 WBC RBC Hgb Hct MCV MCH MCHC RDW Plt Count Lymph % (Auto) [place] % (Auto) Lymph # [place] # Baso # Seg Neutrophils % Seg Neuts % (Manual) Lymphocytes % (Manual) Monocytes % (Manual) Eosinophils % (Manual) Basophils % (Manual) Nucleated RBC % Seg Neutrophils # Seg Neutrophils # Man Lymphocytes # (Manual) Monocytes # (Manual) Eosinophils # (Manual) Basophils # (Manual) PT 19.0 H INR 1.51 H Fibrinogen dRVVT Confirm Interp Factor V Activity POC ABG pH POC ABG pCO2 POC ABG pO2 ABG pO2 ABG HCO3 ABG Base Excess ABG Hemoglobin Oxyhemoglobin Sodium Potassium Chloride Carbon Dioxide BUN Creatinine Glucose POC Glucose 151 H Lactic Acid Calcium Phosphorus Magnesium Direct Bilirubin AST ALT Alkaline Phosphatase Lactate Dehydrogenase Troponin T C-Reactive Protein Total Protein Albumin Prealbumin Triglycerides Cholesterol LDL Cholesterol Direct HDL Cholesterol PTH Intact Urine pH Urine WBC (Auto) Urine Creatinine Urine Total Protein Fluid Total Protein Vancomycin Trough Rheumatoid Factor Complement C4 Miscellaneous Test Crossmatch See Detail 10/09/16 10/09/16 10/09/16 11:46 16:20 16:43 WBC RBC Hgb 7.2 L Hct 22.2 L MCV MCH MCHC RDW Plt Count Lymph % (Auto) [place] % (Auto) Lymph # [place] # Baso # Seg Neutrophils % Seg Neuts % (Manual) Lymphocytes % (Manual) Monocytes % (Manual) Eosinophils % (Manual) Basophils % (Manual) Nucleated RBC % Seg Neutrophils # Seg Neutrophils # Man Lymphocytes # (Manual) Monocytes # (Manual) Eosinophils # (Manual) Basophils # (Manual) PT INR Fibrinogen dRVVT Confirm Interp Factor V Activity POC ABG pH POC ABG pCO2 POC ABG pO2 ABG pO2 ABG HCO3 ABG Base Excess ABG Hemoglobin Oxyhemoglobin Sodium Potassium Chloride Carbon Dioxide BUN Creatinine Glucose POC Glucose 133 H 141 H Lactic Acid Calcium Phosphorus Magnesium Direct Bilirubin AST ALT Alkaline Phosphatase Lactate Dehydrogenase Troponin T C-Reactive Protein Total Protein Albumin Prealbumin Triglycerides Cholesterol LDL Cholesterol Direct HDL Cholesterol PTH Intact Urine pH Urine WBC (Auto) Urine Creatinine Urine Total Protein Fluid Total Protein Vancomycin Trough Rheumatoid Factor Complement C4 Miscellaneous Test Crossmatch 10/10/16 10/10/16 10/10/16 05:00 05:00 11:19 WBC 18.5 H RBC 2.19 L Hgb 6.4 L Hct 19.6 L* MCV MCH MCHC RDW 19.3 H Plt Count 93 L Lymph % (Auto) [place] % (Auto) Lymph # [place] # Baso # Seg Neutrophils % Seg Neuts % (Manual) Lymphocytes % (Manual) 10.0 L Monocytes % (Manual) Eosinophils % (Manual) Basophils % (Manual) Nucleated RBC % 4.0 H Seg Neutrophils # Seg Neutrophils # Man 11.3 H Lymphocytes # (Manual) Monocytes # (Manual) Eosinophils # (Manual) Basophils # (Manual) PT INR Fibrinogen dRVVT Confirm Interp Factor V Activity POC ABG pH POC ABG pCO2 POC ABG pO2 ABG pO2 ABG HCO3 ABG Base Excess ABG Hemoglobin Oxyhemoglobin Sodium Potassium 5.7 H D Chloride Carbon Dioxide 16 L BUN 94 H Creatinine 3.1 H Glucose 131 H POC Glucose 153 H Lactic Acid Calcium 8.2 L Phosphorus 5.10 H Magnesium 2.40 H Direct Bilirubin 0.3 H AST ALT < 5 L Alkaline Phosphatase 319 H Lactate Dehydrogenase Troponin T C-Reactive Protein Total Protein 5.1 L Albumin 1.0 L Prealbumin Triglycerides Cholesterol LDL Cholesterol Direct HDL Cholesterol PTH Intact Urine pH Urine WBC (Auto) Urine Creatinine Urine Total Protein Fluid Total Protein Vancomycin Trough Rheumatoid Factor Complement C4 Miscellaneous Test Crossmatch 10/10/16 10/10/16 10/11/16 17:50 23:30 04:15 WBC RBC Hgb Hct MCV MCH MCHC RDW Plt Count Lymph % (Auto) [place] % (Auto) Lymph # [place] # Baso # Seg Neutrophils % Seg Neuts % (Manual) Lymphocytes % (Manual) Monocytes % (Manual) Eosinophils % (Manual) Basophils % (Manual) Nucleated RBC % Seg Neutrophils # Seg Neutrophils # Man Lymphocytes # (Manual) Monocytes # (Manual) Eosinophils # (Manual) Basophils # (Manual) PT INR Fibrinogen dRVVT Confirm Interp Factor V Activity POC ABG pH POC ABG pCO2 POC ABG pO2 ABG pO2 ABG HCO3 ABG Base Excess ABG Hemoglobin Oxyhemoglobin Sodium Potassium Chloride 96.4 L Carbon Dioxide 21 L BUN 57 H Creatinine 2.1 H Glucose 151 H POC Glucose 146 H 141 H Lactic Acid Calcium 8.3 L Phosphorus Magnesium Direct Bilirubin AST ALT Alkaline Phosphatase Lactate Dehydrogenase Troponin T C-Reactive Protein Total Protein Albumin Prealbumin Triglycerides Cholesterol LDL Cholesterol Direct HDL Cholesterol PTH Intact Urine pH Urine WBC (Auto) Urine Creatinine Urine Total Protein Fluid Total Protein Vancomycin Trough Rheumatoid Factor Complement C4 Miscellaneous Test Crossmatch 10/11/16 10/11/16 10/11/16 04:15 04:15 05:30 WBC 28.3 H RBC 3.12 L Hgb 9.3 L Hct 28.7 L D MCV MCH MCHC RDW 17.7 H Plt Count 128 L Lymph % (Auto) [place] % (Auto) Lymph # [place] # Baso # Seg Neutrophils % Seg Neuts % (Manual) Lymphocytes % (Manual) Monocytes % (Manual) Eosinophils % (Manual) Basophils % (Manual) Nucleated RBC % Seg Neutrophils # Seg Neutrophils # Man Lymphocytes # (Manual) Monocytes # (Manual) Eosinophils # (Manual) Basophils # (Manual) PT INR Fibrinogen dRVVT Confirm Interp Factor V Activity POC ABG pH POC ABG pCO2 POC ABG pO2 ABG pO2 ABG HCO3 ABG Base Excess ABG Hemoglobin Oxyhemoglobin Sodium Potassium Chloride Carbon Dioxide BUN Creatinine Glucose POC Glucose 167 H Lactic Acid Calcium Phosphorus Magnesium Direct Bilirubin AST ALT Alkaline Phosphatase Lactate Dehydrogenase Troponin T C-Reactive Protein 15.80 H Total Protein Albumin Prealbumin Triglycerides Cholesterol LDL Cholesterol Direct HDL Cholesterol PTH Intact Urine pH Urine WBC (Auto) Urine Creatinine Urine Total Protein Fluid Total Protein Vancomycin Trough Rheumatoid Factor Complement C4 Miscellaneous Test Crossmatch 10/11/16 10/11/16 10/11/16 11:40 15:49 23:57 WBC RBC Hgb Hct MCV MCH MCHC RDW Plt Count Lymph % (Auto) [place] % (Auto) Lymph # [place] # Baso # Seg Neutrophils % Seg Neuts % (Manual) Lymphocytes % (Manual) Monocytes % (Manual) Eosinophils % (Manual) Basophils % (Manual) Nucleated RBC % Seg Neutrophils # Seg Neutrophils # Man Lymphocytes # (Manual) Monocytes # (Manual) Eosinophils # (Manual) Basophils # (Manual) PT INR Fibrinogen dRVVT Confirm Interp Factor V Activity POC ABG pH POC ABG pCO2 POC ABG pO2 ABG pO2 ABG HCO3 ABG Base Excess ABG Hemoglobin Oxyhemoglobin Sodium Potassium Chloride Carbon Dioxide BUN Creatinine Glucose POC Glucose 139 H 168 H 161 H Lactic Acid Calcium Phosphorus Magnesium Direct Bilirubin AST ALT Alkaline Phosphatase Lactate Dehydrogenase Troponin T C-Reactive Protein Total Protein Albumin Prealbumin Triglycerides Cholesterol LDL Cholesterol Direct HDL Cholesterol PTH Intact Urine pH Urine WBC (Auto) Urine Creatinine Urine Total Protein Fluid Total Protein Vancomycin Trough Rheumatoid Factor Complement C4 Miscellaneous Test Crossmatch 10/12/16 10/12/16 10/12/16 04:40 04:40 05:44 WBC 22.5 H RBC 2.88 L Hgb 8.8 L Hct 26.8 L MCV MCH MCHC RDW 17.8 H Plt Count Lymph % (Auto) [place] % (Auto) Lymph # [place] # Baso # Seg Neutrophils % Seg Neuts % (Manual) Lymphocytes % (Manual) Monocytes % (Manual) Eosinophils % (Manual) Basophils % (Manual) Nucleated RBC % Seg Neutrophils # Seg Neutrophils # Man Lymphocytes # (Manual) Monocytes # (Manual) Eosinophils # (Manual) Basophils # (Manual) PT INR Fibrinogen dRVVT Confirm Interp Factor V Activity POC ABG pH POC ABG pCO2 POC ABG pO2 ABG pO2 ABG HCO3 ABG Base Excess ABG Hemoglobin Oxyhemoglobin Sodium 134 L Potassium Chloride 93.0 L Carbon Dioxide BUN 74 H Creatinine 2.5 H Glucose 137 H POC Glucose 158 H Lactic Acid Calcium 8.2 L Phosphorus Magnesium Direct Bilirubin AST ALT Alkaline Phosphatase Lactate Dehydrogenase Troponin T C-Reactive Protein Total Protein Albumin Prealbumin Triglycerides Cholesterol LDL Cholesterol Direct HDL Cholesterol PTH Intact Urine pH Urine WBC (Auto) Urine Creatinine Urine Total Protein Fluid Total Protein Vancomycin Trough Rheumatoid Factor Complement C4 Miscellaneous Test Crossmatch 10/12/16 10/12/16 10/12/16 12:27 18:18 23:46 WBC RBC Hgb Hct MCV MCH MCHC RDW Plt Count Lymph % (Auto) [place] % (Auto) Lymph # [place] # Baso # Seg Neutrophils % Seg Neuts % (Manual) Lymphocytes % (Manual) Monocytes % (Manual) Eosinophils % (Manual) Basophils % (Manual) Nucleated RBC % Seg Neutrophils # Seg Neutrophils # Man Lymphocytes # (Manual) Monocytes # (Manual) Eosinophils # (Manual) Basophils # (Manual) PT INR Fibrinogen dRVVT Confirm Interp Factor V Activity POC ABG pH POC ABG pCO2 POC ABG pO2 ABG pO2 ABG HCO3 ABG Base Excess ABG Hemoglobin Oxyhemoglobin Sodium Potassium Chloride Carbon Dioxide BUN Creatinine Glucose POC Glucose 153 H 140 H 150 H Lactic Acid Calcium Phosphorus Magnesium Direct Bilirubin AST ALT Alkaline Phosphatase Lactate Dehydrogenase Troponin T C-Reactive Protein Total Protein Albumin Prealbumin Triglycerides Cholesterol LDL Cholesterol Direct HDL Cholesterol PTH Intact Urine pH Urine WBC (Auto) Urine Creatinine Urine Total Protein Fluid Total Protein Vancomycin Trough Rheumatoid Factor Complement C4 Miscellaneous Test Crossmatch 10/13/16 10/13/16 10/13/16 06:22 09:20 12:29 WBC RBC Hgb Hct MCV MCH MCHC RDW Plt Count Lymph % (Auto) [place] % (Auto) Lymph # [place] # Baso # Seg Neutrophils % Seg Neuts % (Manual) Lymphocytes % (Manual) Monocytes % (Manual) Eosinophils % (Manual) Basophils % (Manual) Nucleated RBC % Seg Neutrophils # Seg Neutrophils # Man Lymphocytes # (Manual) Monocytes # (Manual) Eosinophils # (Manual) Basophils # (Manual) PT INR Fibrinogen dRVVT Confirm Interp Factor V Activity POC ABG pH POC ABG pCO2 POC ABG pO2 ABG pO2 ABG HCO3 ABG Base Excess ABG Hemoglobin Oxyhemoglobin Sodium Potassium Chloride Carbon Dioxide BUN Creatinine Glucose POC Glucose 165 H 193 H Lactic Acid Calcium Phosphorus Magnesium Direct Bilirubin AST ALT Alkaline Phosphatase Lactate Dehydrogenase Troponin T C-Reactive Protein Total Protein Albumin Prealbumin Triglycerides Cholesterol LDL Cholesterol Direct HDL Cholesterol PTH Intact Urine pH Urine WBC (Auto) Urine Creatinine Urine Total Protein Fluid Total Protein Vancomycin Trough Rheumatoid Factor Complement C4 Miscellaneous Test Flexitest 1 H Crossmatch 10/13/16 10/13/16 10/13/16 18:09 Unknown Unknown WBC 23.4 H RBC 2.83 L Hgb 8.7 L Hct 26.1 L MCV MCH MCHC RDW 18.1 H Plt Count Lymph % (Auto) [place] % (Auto) Lymph # [place] # Baso # Seg Neutrophils % Seg Neuts % (Manual) Lymphocytes % (Manual) Monocytes % (Manual) Eosinophils % (Manual) Basophils % (Manual) Nucleated RBC % Seg Neutrophils # Seg Neutrophils # Man Lymphocytes # (Manual) Monocytes # (Manual) Eosinophils # (Manual) Basophils # (Manual) PT INR Fibrinogen dRVVT Confirm Interp Factor V Activity POC ABG pH POC ABG pCO2 POC ABG pO2 ABG pO2 ABG HCO3 ABG Base Excess ABG Hemoglobin Oxyhemoglobin Sodium Potassium Chloride 95.8 L Carbon Dioxide BUN 82 H Creatinine 2.6 H Glucose 152 H POC Glucose 166 H Lactic Acid Calcium Phosphorus Magnesium Direct Bilirubin AST ALT Alkaline Phosphatase Lactate Dehydrogenase Troponin T C-Reactive Protein Total Protein Albumin Prealbumin Triglycerides Cholesterol LDL Cholesterol Direct HDL Cholesterol PTH Intact Urine pH Urine WBC (Auto) Urine Creatinine Urine Total Protein Fluid Total Protein Vancomycin Trough Rheumatoid Factor Complement C4 Miscellaneous Test Crossmatch 10/14/16 10/14/16 10/14/16 05:38 06:35 08:10 WBC 20.7 H RBC 2.81 L Hgb 8.4 L Hct 27.2 L MCV MCH MCHC RDW 19.4 H Plt Count Lymph % (Auto) [place] % (Auto) Lymph # [place] # Baso # Seg Neutrophils % Seg Neuts % (Manual) Lymphocytes % (Manual) Monocytes % (Manual) Eosinophils % (Manual) Basophils % (Manual) Nucleated RBC % Seg Neutrophils # Seg Neutrophils # Man Lymphocytes # (Manual) Monocytes # (Manual) Eosinophils # (Manual) Basophils # (Manual) PT INR Fibrinogen dRVVT Confirm Interp Factor V Activity POC ABG pH POC ABG pCO2 POC ABG pO2 ABG pO2 ABG HCO3 ABG Base Excess ABG Hemoglobin Oxyhemoglobin Sodium Potassium Chloride Carbon Dioxide BUN 58 H Creatinine 1.9 H Glucose 169 H POC Glucose 195 H Lactic Acid Calcium Phosphorus Magnesium Direct Bilirubin AST ALT Alkaline Phosphatase Lactate Dehydrogenase Troponin T C-Reactive Protein Total Protein Albumin Prealbumin Triglycerides Cholesterol LDL Cholesterol Direct HDL Cholesterol PTH Intact Urine pH Urine WBC (Auto) Urine Creatinine Urine Total Protein Fluid Total Protein Vancomycin Trough Rheumatoid Factor Complement C4 Miscellaneous Test Crossmatch 10/14/16 10/14/16 10/14/16 11:44 17:13 23:28 WBC RBC Hgb Hct MCV MCH MCHC RDW Plt Count Lymph % (Auto) [place] % (Auto) Lymph # [place] # Baso # Seg Neutrophils % Seg Neuts % (Manual) Lymphocytes % (Manual) Monocytes % (Manual) Eosinophils % (Manual) Basophils % (Manual) Nucleated RBC % Seg Neutrophils # Seg Neutrophils # Man Lymphocytes # (Manual) Monocytes # (Manual) Eosinophils # (Manual) Basophils # (Manual) PT INR Fibrinogen dRVVT Confirm Interp Factor V Activity POC ABG pH POC ABG pCO2 POC ABG pO2 ABG pO2 ABG HCO3 ABG Base Excess ABG Hemoglobin Oxyhemoglobin Sodium Potassium Chloride Carbon Dioxide BUN Creatinine Glucose POC Glucose 174 H 121 H 151 H Lactic Acid Calcium Phosphorus Magnesium Direct Bilirubin AST ALT Alkaline Phosphatase Lactate Dehydrogenase Troponin T C-Reactive Protein Total Protein Albumin Prealbumin Triglycerides Cholesterol LDL Cholesterol Direct HDL Cholesterol PTH Intact Urine pH Urine WBC (Auto) Urine Creatinine Urine Total Protein Fluid Total Protein Vancomycin Trough Rheumatoid Factor Complement C4 Miscellaneous Test Crossmatch 10/15/16 10/15/16 10/15/16 05:06 12:26 17:48 WBC RBC Hgb Hct MCV MCH MCHC RDW Plt Count Lymph % (Auto) Hitchcock % (Auto) Lymph # Hitchcock # Baso # Seg Neutrophils % Seg Neuts % (Manual) Lymphocytes % (Manual) Monocytes % (Manual) Eosinophils % (Manual) Basophils % (Manual) Nucleated RBC % Seg Neutrophils # Seg Neutrophils # Man Lymphocytes # (Manual) Monocytes # (Manual) Eosinophils # (Manual) Basophils # (Manual) PT INR Fibrinogen dRVVT Confirm Interp Factor V Activity POC ABG pH POC ABG pCO2 POC ABG pO2 ABG pO2 ABG HCO3 ABG Base Excess ABG Hemoglobin Oxyhemoglobin Sodium Potassium Chloride Carbon Dioxide BUN Creatinine Glucose POC Glucose 151 H 149 H 153 H Lactic Acid Calcium Phosphorus Magnesium Direct Bilirubin AST ALT Alkaline Phosphatase Lactate Dehydrogenase Troponin T C-Reactive Protein Total Protein Albumin Prealbumin Triglycerides Cholesterol LDL Cholesterol Direct HDL Cholesterol PTH Intact Urine pH Urine WBC (Auto) Urine Creatinine Urine Total Protein Fluid Total Protein Vancomycin Trough Rheumatoid Factor Complement C4 Miscellaneous Test Crossmatch 10/15/16 10/15/16 10/16/16 Unknown Unknown 00:02 WBC 23.4 H RBC 2.78 L Hgb 8.5 L Hct 25.7 L MCV MCH MCHC RDW 18.7 H Plt Count Lymph % (Auto) [place] % (Auto) Lymph # [place] # Baso # Seg Neutrophils % Seg Neuts % (Manual) Lymphocytes % (Manual) Monocytes % (Manual) Eosinophils % (Manual) Basophils % (Manual) Nucleated RBC % Seg Neutrophils # Seg Neutrophils # Man Lymphocytes # (Manual) Monocytes # (Manual) Eosinophils # (Manual) Basophils # (Manual) PT INR Fibrinogen dRVVT Confirm Interp Factor V Activity POC ABG pH POC ABG pCO2 POC ABG pO2 ABG pO2 ABG HCO3 ABG Base Excess ABG Hemoglobin Oxyhemoglobin Sodium Potassium Chloride Carbon Dioxide BUN 73 H Creatinine 2.3 H Glucose 120 H POC Glucose 137 H Lactic Acid Calcium Phosphorus Magnesium Direct Bilirubin AST ALT Alkaline Phosphatase Lactate Dehydrogenase Troponin T C-Reactive Protein Total Protein Albumin Prealbumin Triglycerides Cholesterol LDL Cholesterol Direct HDL Cholesterol PTH Intact Urine pH Urine WBC (Auto) Urine Creatinine Urine Total Protein Fluid Total Protein Vancomycin Trough Rheumatoid Factor Complement C4 Miscellaneous Test Crossmatch 10/16/16 10/16/16 10/16/16 05:44 06:25 06:25 WBC 22.5 H RBC 2.76 L Hgb 8.3 L Hct 25.2 L MCV MCH MCHC RDW 18.3 H Plt Count Lymph % (Auto) [place] % (Auto) Lymph # [place] # Baso # Seg Neutrophils % Seg Neuts % (Manual) Lymphocytes % (Manual) Monocytes % (Manual) Eosinophils % (Manual) Basophils % (Manual) Nucleated RBC % Seg Neutrophils # Seg Neutrophils # Man Lymphocytes # (Manual) Monocytes # (Manual) Eosinophils # (Manual) Basophils # (Manual) PT INR Fibrinogen dRVVT Confirm Interp Factor V Activity POC ABG pH POC ABG pCO2 POC ABG pO2 ABG pO2 ABG HCO3 ABG Base Excess ABG Hemoglobin Oxyhemoglobin Sodium Potassium Chloride Carbon Dioxide BUN 92 H Creatinine 3.0 H Glucose 138 H POC Glucose 110 H Lactic Acid Calcium Phosphorus Magnesium Direct Bilirubin AST ALT Alkaline Phosphatase Lactate Dehydrogenase Troponin T C-Reactive Protein Total Protein Albumin Prealbumin Triglycerides Cholesterol LDL Cholesterol Direct HDL Cholesterol PTH Intact Urine pH Urine WBC (Auto) Urine Creatinine Urine Total Protein Fluid Total Protein Vancomycin Trough Rheumatoid Factor Complement C4 Miscellaneous Test Crossmatch 10/16/16 10/16/16 10/16/16 11:27 11:48 17:36 WBC RBC Hgb Hct MCV MCH MCHC RDW Plt Count Lymph % (Auto) [place] % (Auto) Lymph # [place] # Baso # Seg Neutrophils % Seg Neuts % (Manual) Lymphocytes % (Manual) Monocytes % (Manual) Eosinophils % (Manual) Basophils % (Manual) Nucleated RBC % Seg Neutrophils # Seg Neutrophils # Man Lymphocytes # (Manual) Monocytes # (Manual) Eosinophils # (Manual) Basophils # (Manual) PT INR Fibrinogen dRVVT Confirm Interp Factor V Activity POC ABG pH 7.582 H POC ABG pCO2 27.4 L POC ABG pO2 110 H ABG pO2 ABG HCO3 ABG Base Excess ABG Hemoglobin Oxyhemoglobin Sodium Potassium Chloride Carbon Dioxide BUN Creatinine Glucose POC Glucose 121 H 133 H Lactic Acid Calcium Phosphorus Magnesium Direct Bilirubin AST ALT Alkaline Phosphatase Lactate Dehydrogenase Troponin T C-Reactive Protein Total Protein Albumin Prealbumin Triglycerides Cholesterol LDL Cholesterol Direct HDL Cholesterol PTH Intact Urine pH Urine WBC (Auto) Urine Creatinine Urine Total Protein Fluid Total Protein Vancomycin Trough Rheumatoid Factor Complement C4 Miscellaneous Test Crossmatch 10/16/16 10/17/16 10/17/16 20:48 04:24 04:24 WBC 21.4 H RBC 2.72 L Hgb 8.0 L Hct 25.2 L MCV MCH MCHC RDW 18.0 H Plt Count Lymph % (Auto) [place] % (Auto) Lymph # [place] # Baso # Seg Neutrophils % Seg Neuts % (Manual) Lymphocytes % (Manual) Monocytes % (Manual) Eosinophils % (Manual) Basophils % (Manual) Nucleated RBC % Seg Neutrophils # Seg Neutrophils # Man Lymphocytes # (Manual) Monocytes # (Manual) Eosinophils # (Manual) Basophils # (Manual) PT INR Fibrinogen dRVVT Confirm Interp Factor V Activity POC ABG pH 7.561 H POC ABG pCO2 24.4 L POC ABG pO2 77 L ABG pO2 ABG HCO3 ABG Base Excess ABG Hemoglobin Oxyhemoglobin Sodium 148 H Potassium Chloride Carbon Dioxide BUN 104 H Creatinine 3.0 H Glucose 149 H POC Glucose Lactic Acid Calcium Phosphorus Magnesium Direct Bilirubin AST ALT Alkaline Phosphatase 138 H Lactate Dehydrogenase Troponin T C-Reactive Protein Total Protein 6.2 L Albumin 1.5 L Prealbumin Triglycerides Cholesterol LDL Cholesterol Direct HDL Cholesterol PTH Intact Urine pH Urine WBC (Auto) Urine Creatinine Urine Total Protein Fluid Total Protein Vancomycin Trough Rheumatoid Factor Complement C4 Miscellaneous Test Crossmatch 10/17/16 10/17/16 10/17/16 06:02 12:17 17:14 WBC RBC Hgb Hct MCV MCH MCHC RDW Plt Count Lymph % (Auto) [place] % (Auto) Lymph # [place] # Baso # Seg Neutrophils % Seg Neuts % (Manual) Lymphocytes % (Manual) Monocytes % (Manual) Eosinophils % (Manual) Basophils % (Manual) Nucleated RBC % Seg Neutrophils # Seg Neutrophils # Man Lymphocytes # (Manual) Monocytes # (Manual) Eosinophils # (Manual) Basophils # (Manual) PT INR Fibrinogen dRVVT Confirm Interp Factor V Activity POC ABG pH POC ABG pCO2 POC ABG pO2 ABG pO2 ABG HCO3 ABG Base Excess ABG Hemoglobin Oxyhemoglobin Sodium Potassium Chloride Carbon Dioxide BUN Creatinine Glucose POC Glucose 170 H 167 H 126 H Lactic Acid Calcium Phosphorus Magnesium Direct Bilirubin AST ALT Alkaline Phosphatase Lactate Dehydrogenase Troponin T C-Reactive Protein Total Protein Albumin Prealbumin Triglycerides Cholesterol LDL Cholesterol Direct HDL Cholesterol PTH Intact Urine pH Urine WBC (Auto) Urine Creatinine Urine Total Protein Fluid Total Protein Vancomycin Trough Rheumatoid Factor Complement C4 Miscellaneous Test Crossmatch 10/17/16 10/18/16 10/18/16 23:17 04:00 04:00 WBC 20.7 H RBC 2.47 L Hgb 7.4 L Hct 22.9 L MCV MCH MCHC RDW 17.5 H Plt Count Lymph % (Auto) [place] % (Auto) Lymph # [place] # Baso # Seg Neutrophils % Seg Neuts % (Manual) Lymphocytes % (Manual) Monocytes % (Manual) Eosinophils % (Manual) Basophils % (Manual) Nucleated RBC % Seg Neutrophils # Seg Neutrophils # Man Lymphocytes # (Manual) Monocytes # (Manual) Eosinophils # (Manual) Basophils # (Manual) PT INR Fibrinogen dRVVT Confirm Interp Factor V Activity POC ABG pH POC ABG pCO2 POC ABG pO2 ABG pO2 ABG HCO3 ABG Base Excess ABG Hemoglobin Oxyhemoglobin Sodium 149 H Potassium Chloride 107.9 H Carbon Dioxide 20 L BUN 117 H Creatinine 3.2 H Glucose 119 H POC Glucose 121 H Lactic Acid Calcium Phosphorus Magnesium Direct Bilirubin AST ALT Alkaline Phosphatase Lactate Dehydrogenase Troponin T C-Reactive Protein Total Protein Albumin Prealbumin Triglycerides Cholesterol LDL Cholesterol Direct HDL Cholesterol PTH Intact Urine pH Urine WBC (Auto) Urine Creatinine Urine Total Protein Fluid Total Protein Vancomycin Trough Rheumatoid Factor Complement C4 Miscellaneous Test Crossmatch 10/18/16 10/18/16 10/18/16 05:23 10:46 17:30 WBC RBC Hgb Hct MCV MCH MCHC RDW Plt Count Lymph % (Auto) [place] % (Auto) Lymph # [place] # Baso # Seg Neutrophils % Seg Neuts % (Manual) Lymphocytes % (Manual) Monocytes % (Manual) Eosinophils % (Manual) Basophils % (Manual) Nucleated RBC % Seg Neutrophils # Seg Neutrophils # Man Lymphocytes # (Manual) Monocytes # (Manual) Eosinophils # (Manual) Basophils # (Manual) PT INR Fibrinogen dRVVT Confirm Interp Factor V Activity POC ABG pH POC ABG pCO2 POC ABG pO2 ABG pO2 ABG HCO3 ABG Base Excess ABG Hemoglobin Oxyhemoglobin Sodium Potassium Chloride Carbon Dioxide BUN Creatinine Glucose POC Glucose 119 H 155 H 124 H Lactic Acid Calcium Phosphorus Magnesium Direct Bilirubin AST ALT Alkaline Phosphatase Lactate Dehydrogenase Troponin T C-Reactive Protein Total Protein Albumin Prealbumin Triglycerides Cholesterol LDL Cholesterol Direct HDL Cholesterol PTH Intact Urine pH Urine WBC (Auto) Urine Creatinine Urine Total Protein Fluid Total Protein Vancomycin Trough Rheumatoid Factor Complement C4 Miscellaneous Test Crossmatch 10/19/16 10/19/16 10/19/16 04:00 04:00 05:25 WBC 17.4 H RBC 2.54 L Hgb 7.7 L Hct 23.6 L MCV MCH MCHC RDW 17.3 H Plt Count Lymph % (Auto) [place] % (Auto) Lymph # [place] # Baso # Seg Neutrophils % Seg Neuts % (Manual) Lymphocytes % (Manual) Monocytes % (Manual) Eosinophils % (Manual) Basophils % (Manual) Nucleated RBC % Seg Neutrophils # Seg Neutrophils # Man Lymphocytes # (Manual) Monocytes # (Manual) Eosinophils # (Manual) Basophils # (Manual) PT INR Fibrinogen dRVVT Confirm Interp Factor V Activity POC ABG pH POC ABG pCO2 POC ABG pO2 ABG pO2 ABG HCO3 ABG Base Excess ABG Hemoglobin Oxyhemoglobin Sodium Potassium Chloride Carbon Dioxide BUN 72 H Creatinine 2.1 H Glucose 116 H POC Glucose 119 H Lactic Acid Calcium Phosphorus Magnesium Direct Bilirubin AST ALT Alkaline Phosphatase Lactate Dehydrogenase Troponin T C-Reactive Protein Total Protein Albumin Prealbumin Triglycerides Cholesterol LDL Cholesterol Direct HDL Cholesterol PTH Intact Urine pH Urine WBC (Auto) Urine Creatinine Urine Total Protein Fluid Total Protein Vancomycin Trough Rheumatoid Factor Complement C4 Miscellaneous Test Crossmatch 10/19/16 10/19/16 10/20/16 11:46 23:59 06:00 WBC RBC Hgb Hct MCV MCH MCHC RDW Plt Count Lymph % (Auto) [place] % (Auto) Lymph # [place] # Baso # Seg Neutrophils % Seg Neuts % (Manual) Lymphocytes % (Manual) Monocytes % (Manual) Eosinophils % (Manual) Basophils % (Manual) Nucleated RBC % Seg Neutrophils # Seg Neutrophils # Man Lymphocytes # (Manual) Monocytes # (Manual) Eosinophils # (Manual) Basophils # (Manual) PT INR Fibrinogen dRVVT Confirm Interp Factor V Activity POC ABG pH POC ABG pCO2 POC ABG pO2 ABG pO2 ABG HCO3 ABG Base Excess ABG Hemoglobin Oxyhemoglobin Sodium Potassium Chloride Carbon Dioxide 17 L BUN 94 H Creatinine 2.7 H Glucose POC Glucose 116 H 117 H Lactic Acid Calcium Phosphorus Magnesium Direct Bilirubin AST ALT Alkaline Phosphatase Lactate Dehydrogenase Troponin T C-Reactive Protein Total Protein Albumin Prealbumin Triglycerides Cholesterol LDL Cholesterol Direct HDL Cholesterol PTH Intact Urine pH Urine WBC (Auto) Urine Creatinine Urine Total Protein Fluid Total Protein Vancomycin Trough Rheumatoid Factor Complement C4 Miscellaneous Test Crossmatch 10/20/16 10/20/16 10/20/16 06:00 11:49 16:00 WBC 19.7 H RBC 2.51 L Hgb 7.7 L Hct 23.5 L MCV MCH MCHC RDW 17.5 H Plt Count Lymph % (Auto) [place] % (Auto) Lymph # [place]cock # Baso # Seg Neutrophils % Seg Neuts % (Manual) Lymphocytes % (Manual) Monocytes % (Manual) Eosinophils % (Manual) Basophils % (Manual) Nucleated RBC % Seg Neutrophils # Seg Neutrophils # Man Lymphocytes # (Manual) Monocytes # (Manual) Eosinophils # (Manual) Basophils # (Manual) PT INR Fibrinogen dRVVT Confirm Interp Factor V Activity POC ABG pH POC ABG pCO2 POC ABG pO2 ABG pO2 ABG HCO3 ABG Base Excess ABG Hemoglobin Oxyhemoglobin Sodium Potassium Chloride Carbon Dioxide BUN Creatinine Glucose POC Glucose 117 H Lactic Acid Calcium Phosphorus Magnesium Direct Bilirubin AST ALT Alkaline Phosphatase Lactate Dehydrogenase Troponin T C-Reactive Protein Total Protein Albumin Prealbumin Triglycerides Cholesterol LDL Cholesterol Direct HDL Cholesterol PTH Intact Urine pH Urine WBC (Auto) Urine Creatinine Urine Total Protein Fluid Total Protein Vancomycin Trough Rheumatoid Factor Complement C4 Miscellaneous Test Flexitest 1 H Crossmatch 10/20/16 10/20/16 10/21/16 18:36 23:39 04:00 WBC RBC Hgb Hct MCV MCH MCHC RDW Plt Count Lymph % (Auto) [place] % (Auto) Lymph # [place] # Baso # Seg Neutrophils % Seg Neuts % (Manual) Lymphocytes % (Manual) Monocytes % (Manual) Eosinophils % (Manual) Basophils % (Manual) Nucleated RBC % Seg Neutrophils # Seg Neutrophils # Man Lymphocytes # (Manual) Monocytes # (Manual) Eosinophils # (Manual) Basophils # (Manual) PT INR Fibrinogen dRVVT Confirm Interp Factor V Activity POC ABG pH POC ABG pCO2 POC ABG pO2 ABG pO2 ABG HCO3 ABG Base Excess ABG Hemoglobin Oxyhemoglobin Sodium Potassium 5.4 H D Chloride Carbon Dioxide 15 L BUN 110 H Creatinine 3.0 H Glucose POC Glucose 127 H 114 H Lactic Acid Calcium Phosphorus Magnesium Direct Bilirubin AST ALT Alkaline Phosphatase Lactate Dehydrogenase Troponin T C-Reactive Protein Total Protein Albumin Prealbumin Triglycerides Cholesterol LDL Cholesterol Direct HDL Cholesterol PTH Intact Urine pH Urine WBC (Auto) Urine Creatinine Urine Total Protein Fluid Total Protein Vancomycin Trough Rheumatoid Factor Complement C4 Miscellaneous Test Crossmatch 10/21/16 10/21/16 10/22/16 05:54 23:46 05:18 WBC RBC Hgb Hct MCV MCH MCHC RDW Plt Count Lymph % (Auto) [place] % (Auto) Lymph # [place] # Baso # Seg Neutrophils % Seg Neuts % (Manual) Lymphocytes % (Manual) Monocytes % (Manual) Eosinophils % (Manual) Basophils % (Manual) Nucleated RBC % Seg Neutrophils # Seg Neutrophils # Man Lymphocytes # (Manual) Monocytes # (Manual) Eosinophils # (Manual) Basophils # (Manual) PT INR Fibrinogen dRVVT Confirm Interp Factor V Activity POC ABG pH POC ABG pCO2 POC ABG pO2 ABG pO2 ABG HCO3 ABG Base Excess ABG Hemoglobin Oxyhemoglobin Sodium Potassium Chloride Carbon Dioxide BUN Creatinine Glucose POC Glucose 119 H 108 H 109 H Lactic Acid Calcium Phosphorus Magnesium Direct Bilirubin AST ALT Alkaline Phosphatase Lactate Dehydrogenase Troponin T C-Reactive Protein Total Protein Albumin Prealbumin Triglycerides Cholesterol LDL Cholesterol Direct HDL Cholesterol PTH Intact Urine pH Urine WBC (Auto) Urine Creatinine Urine Total Protein Fluid Total Protein Vancomycin Trough Rheumatoid Factor Complement C4 Miscellaneous Test Crossmatch 10/22/16 10/22/16 10/22/16 06:40 06:40 06:40 WBC 14.0 H RBC 2.03 L Hgb 7.0 L Hct 20.5 L MCV 98 H MCH 34 H MCHC 35 H RDW 17.8 H Plt Count Lymph % (Auto) [place] % (Auto) 9.9 H Lymph # [place]cock # 1.4 H Baso # 0.2 H Seg Neutrophils % 72.0 H Seg Neuts % (Manual) Lymphocytes % (Manual) Monocytes % (Manual) Eosinophils % (Manual) Basophils % (Manual) Nucleated RBC % Seg Neutrophils # 10.0 H Seg Neutrophils # Man Lymphocytes # (Manual) Monocytes # (Manual) Eosinophils # (Manual) Basophils # (Manual) PT INR Fibrinogen dRVVT Confirm Interp Factor V Activity POC ABG pH POC ABG pCO2 POC ABG pO2 ABG pO2 ABG HCO3 ABG Base Excess ABG Hemoglobin Oxyhemoglobin Sodium 130 L D Potassium Chloride 92.4 L Carbon Dioxide 20 L BUN 50 H Creatinine 1.6 H Glucose 589 H* POC Glucose Lactic Acid Calcium 7.8 L D Phosphorus Magnesium 1.60 L Direct Bilirubin AST ALT Alkaline Phosphatase Lactate Dehydrogenase Troponin T C-Reactive Protein Total Protein Albumin Prealbumin Triglycerides Cholesterol LDL Cholesterol Direct HDL Cholesterol PTH Intact Urine pH Urine WBC (Auto) Urine Creatinine Urine Total Protein Fluid Total Protein Vancomycin Trough Rheumatoid Factor Complement C4 Miscellaneous Test Crossmatch 10/22/16 10/22/16 10/22/16 11:39 16:44 23:36 WBC RBC Hgb Hct MCV MCH MCHC RDW Plt Count Lymph % (Auto) [place] % (Auto) Lymph # [place] # Baso # Seg Neutrophils % Seg Neuts % (Manual) Lymphocytes % (Manual) Monocytes % (Manual) Eosinophils % (Manual) Basophils % (Manual) Nucleated RBC % Seg Neutrophils # Seg Neutrophils # Man Lymphocytes # (Manual) Monocytes # (Manual) Eosinophils # (Manual) Basophils # (Manual) PT INR Fibrinogen dRVVT Confirm Interp Factor V Activity POC ABG pH POC ABG pCO2 POC ABG pO2 ABG pO2 ABG HCO3 ABG Base Excess ABG Hemoglobin Oxyhemoglobin Sodium Potassium Chloride Carbon Dioxide BUN Creatinine Glucose POC Glucose 142 H 163 H 123 H Lactic Acid Calcium Phosphorus Magnesium Direct Bilirubin AST ALT Alkaline Phosphatase Lactate Dehydrogenase Troponin T C-Reactive Protein Total Protein Albumin Prealbumin Triglycerides Cholesterol LDL Cholesterol Direct HDL Cholesterol PTH Intact Urine pH Urine WBC (Auto) Urine Creatinine Urine Total Protein Fluid Total Protein Vancomycin Trough Rheumatoid Factor Complement C4 Miscellaneous Test Crossmatch 10/23/16 10/23/16 10/23/16 04:58 06:00 12:12 WBC RBC Hgb Hct MCV MCH MCHC RDW Plt Count Lymph % (Auto) [place] % (Auto) Lymph # [place] # Baso # Seg Neutrophils % Seg Neuts % (Manual) Lymphocytes % (Manual) Monocytes % (Manual) Eosinophils % (Manual) Basophils % (Manual) Nucleated RBC % Seg Neutrophils # Seg Neutrophils # Man Lymphocytes # (Manual) Monocytes # (Manual) Eosinophils # (Manual) Basophils # (Manual) PT INR Fibrinogen dRVVT Confirm Interp Factor V Activity POC ABG pH POC ABG pCO2 POC ABG pO2 ABG pO2 ABG HCO3 ABG Base Excess ABG Hemoglobin Oxyhemoglobin Sodium 133 L Potassium 3.5 L Chloride 96.1 L Carbon Dioxide 18 L BUN 76 H Creatinine 2.1 H Glucose POC Glucose 133 H 138 H Lactic Acid Calcium 8.3 L Phosphorus Magnesium Direct Bilirubin AST ALT Alkaline Phosphatase Lactate Dehydrogenase Troponin T C-Reactive Protein Total Protein Albumin Prealbumin Triglycerides Cholesterol LDL Cholesterol Direct HDL Cholesterol PTH Intact Urine pH Urine WBC (Auto) Urine Creatinine Urine Total Protein Fluid Total Protein Vancomycin Trough Rheumatoid Factor Complement C4 Miscellaneous Test Crossmatch 10/23/16 10/23/16 10/24/16 16:53 23:37 04:00 WBC RBC Hgb Hct MCV MCH MCHC RDW Plt Count Lymph % (Auto) [place] % (Auto) Lymph # [place] # Baso # Seg Neutrophils % Seg Neuts % (Manual) Lymphocytes % (Manual) Monocytes % (Manual) Eosinophils % (Manual) Basophils % (Manual) Nucleated RBC % Seg Neutrophils # Seg Neutrophils # Man Lymphocytes # (Manual) Monocytes # (Manual) Eosinophils # (Manual) Basophils # (Manual) PT INR Fibrinogen dRVVT Confirm Interp Factor V Activity POC ABG pH POC ABG pCO2 POC ABG pO2 ABG pO2 ABG HCO3 ABG Base Excess ABG Hemoglobin Oxyhemoglobin Sodium 131 L Potassium Chloride 94.5 L Carbon Dioxide 19 L BUN 97 H Creatinine 2.6 H Glucose 110 H POC Glucose 125 H 123 H Lactic Acid Calcium 8.3 L Phosphorus Magnesium Direct Bilirubin AST ALT Alkaline Phosphatase Lactate Dehydrogenase Troponin T C-Reactive Protein Total Protein Albumin Prealbumin Triglycerides Cholesterol LDL Cholesterol Direct HDL Cholesterol PTH Intact Urine pH Urine WBC (Auto) Urine Creatinine Urine Total Protein Fluid Total Protein Vancomycin Trough Rheumatoid Factor Complement C4 Miscellaneous Test Crossmatch 10/24/16 10/24/16 10/24/16 07:49 11:39 17:52 WBC RBC Hgb 6.0 L Hct 19.7 L* MCV MCH MCHC RDW Plt Count Lymph % (Auto) [place] % (Auto) Lymph # [place] # Baso # Seg Neutrophils % Seg Neuts % (Manual) Lymphocytes % (Manual) Monocytes % (Manual) Eosinophils % (Manual) Basophils % (Manual) Nucleated RBC % Seg Neutrophils # Seg Neutrophils # Man Lymphocytes # (Manual) Monocytes # (Manual) Eosinophils # (Manual) Basophils # (Manual) PT INR Fibrinogen dRVVT Confirm Interp Factor V Activity POC ABG pH POC ABG pCO2 POC ABG pO2 ABG pO2 ABG HCO3 ABG Base Excess ABG Hemoglobin Oxyhemoglobin Sodium Potassium Chloride Carbon Dioxide BUN Creatinine Glucose POC Glucose 106 H 158 H Lactic Acid Calcium Phosphorus Magnesium Direct Bilirubin AST ALT Alkaline Phosphatase Lactate Dehydrogenase Troponin T C-Reactive Protein Total Protein Albumin Prealbumin Triglycerides Cholesterol LDL Cholesterol Direct HDL Cholesterol PTH Intact Urine pH Urine WBC (Auto) Urine Creatinine Urine Total Protein Fluid Total Protein Vancomycin Trough Rheumatoid Factor Complement C4 Miscellaneous Test Crossmatch 10/24/16 10/24/16 10/24/16 20:00 22:27 Unknown WBC RBC Hgb 9.4 L D Hct 27.5 L D MCV MCH MCHC RDW Plt Count Lymph % (Auto) [place] % (Auto) Lymph # [place] # Baso # Seg Neutrophils % Seg Neuts % (Manual) Lymphocytes % (Manual) Monocytes % (Manual) Eosinophils % (Manual) Basophils % (Manual) Nucleated RBC % Seg Neutrophils # Seg Neutrophils # Man Lymphocytes # (Manual) Monocytes # (Manual) Eosinophils # (Manual) Basophils # (Manual) PT INR Fibrinogen dRVVT Confirm Interp Factor V Activity POC ABG pH POC ABG pCO2 POC ABG pO2 ABG pO2 ABG HCO3 ABG Base Excess ABG Hemoglobin Oxyhemoglobin Sodium Potassium Chloride Carbon Dioxide BUN Creatinine Glucose POC Glucose 125 H Lactic Acid Calcium Phosphorus Magnesium Direct Bilirubin AST ALT Alkaline Phosphatase Lactate Dehydrogenase Troponin T C-Reactive Protein Total Protein Albumin Prealbumin Triglycerides Cholesterol LDL Cholesterol Direct HDL Cholesterol PTH Intact Urine pH Urine WBC (Auto) Urine Creatinine Urine Total Protein Fluid Total Protein Vancomycin Trough Rheumatoid Factor Complement C4 Miscellaneous Test Crossmatch See Detail 10/25/16 10/25/16 10/25/16 04:00 04:00 04:00 WBC 14.2 H RBC 2.98 L Hgb 9.0 L Hct 26.2 L MCV MCH MCHC RDW 16.6 H Plt Count Lymph % (Auto) [place] % (Auto) 10.7 H Lymph # [place] # 1.5 H Baso # Seg Neutrophils % 73.6 H Seg Neuts % (Manual) Lymphocytes % (Manual) Monocytes % (Manual) Eosinophils % (Manual) Basophils % (Manual) Nucleated RBC % Seg Neutrophils # 10.5 H Seg Neutrophils # Man Lymphocytes # (Manual) Monocytes # (Manual) Eosinophils # (Manual) Basophils # (Manual) PT INR Fibrinogen dRVVT Confirm Interp Factor V Activity POC ABG pH POC ABG pCO2 POC ABG pO2 ABG pO2 ABG HCO3 ABG Base Excess ABG Hemoglobin Oxyhemoglobin Sodium 132 L Potassium Chloride 94.7 L Carbon Dioxide BUN 51 H Creatinine 1.6 H Glucose 130 H POC Glucose Lactic Acid Calcium 8.3 L Phosphorus 1.60 L D Magnesium Direct Bilirubin AST ALT Alkaline Phosphatase Lactate Dehydrogenase Troponin T C-Reactive Protein Total Protein Albumin Prealbumin Triglycerides Cholesterol LDL Cholesterol Direct HDL Cholesterol PTH Intact Urine pH Urine WBC (Auto) Urine Creatinine Urine Total Protein Fluid Total Protein Vancomycin Trough Rheumatoid Factor Complement C4 Miscellaneous Test Crossmatch 10/25/16 10/25/16 10/25/16 04:32 11:48 17:22 WBC RBC Hgb Hct MCV MCH MCHC RDW Plt Count Lymph % (Auto) [place] % (Auto) Lymph # [place] # Baso # Seg Neutrophils % Seg Neuts % (Manual) Lymphocytes % (Manual) Monocytes % (Manual) Eosinophils % (Manual) Basophils % (Manual) Nucleated RBC % Seg Neutrophils # Seg Neutrophils # Man Lymphocytes # (Manual) Monocytes # (Manual) Eosinophils # (Manual) Basophils # (Manual) PT INR Fibrinogen dRVVT Confirm Interp Factor V Activity POC ABG pH POC ABG pCO2 POC ABG pO2 ABG pO2 ABG HCO3 ABG Base Excess ABG Hemoglobin Oxyhemoglobin Sodium Potassium Chloride Carbon Dioxide BUN Creatinine Glucose POC Glucose 124 H 171 H 120 H Lactic Acid Calcium Phosphorus Magnesium Direct Bilirubin AST ALT Alkaline Phosphatase Lactate Dehydrogenase Troponin T C-Reactive Protein Total Protein Albumin Prealbumin Triglycerides Cholesterol LDL Cholesterol Direct HDL Cholesterol PTH Intact Urine pH Urine WBC (Auto) Urine Creatinine Urine Total Protein Fluid Total Protein Vancomycin Trough Rheumatoid Factor Complement C4 Miscellaneous Test Crossmatch 10/26/16 10/26/16 10/26/16 04:54 07:06 07:06 WBC 16.9 H RBC 3.06 L Hgb 9.1 L Hct 26.9 L MCV MCH MCHC RDW 16.9 H Plt Count Lymph % (Auto) [place] % (Auto) Lymph # [place] # Baso # Seg Neutrophils % Seg Neuts % (Manual) 71.0 H Lymphocytes % (Manual) 5.0 L Monocytes % (Manual) 12.0 H Eosinophils % (Manual) Basophils % (Manual) Nucleated RBC % Seg Neutrophils # Seg Neutrophils # Man 12.0 H Lymphocytes # (Manual) 0.8 L Monocytes # (Manual) 2.0 H Eosinophils # (Manual) Basophils # (Manual) PT INR Fibrinogen dRVVT Confirm Interp Factor V Activity POC ABG pH POC ABG pCO2 POC ABG pO2 ABG pO2 ABG HCO3 ABG Base Excess ABG Hemoglobin Oxyhemoglobin Sodium 135 L Potassium Chloride 97.1 L Carbon Dioxide BUN 73 H Creatinine 2.2 H Glucose 117 H POC Glucose 123 H Lactic Acid Calcium Phosphorus 1.70 L Magnesium Direct Bilirubin AST ALT Alkaline Phosphatase Lactate Dehydrogenase Troponin T C-Reactive Protein Total Protein Albumin Prealbumin Triglycerides Cholesterol LDL Cholesterol Direct HDL Cholesterol PTH Intact Urine pH Urine WBC (Auto) Urine Creatinine Urine Total Protein Fluid Total Protein Vancomycin Trough Rheumatoid Factor Complement C4 Miscellaneous Test Crossmatch 10/26/16 10/26/16 10/26/16 12:12 17:29 23:42 WBC RBC Hgb Hct MCV MCH MCHC RDW Plt Count Lymph % (Auto) [place] % (Auto) Lymph # [place] # Baso # Seg Neutrophils % Seg Neuts % (Manual) Lymphocytes % (Manual) Monocytes % (Manual) Eosinophils % (Manual) Basophils % (Manual) Nucleated RBC % Seg Neutrophils # Seg Neutrophils # Man Lymphocytes # (Manual) Monocytes # (Manual) Eosinophils # (Manual) Basophils # (Manual) PT INR Fibrinogen dRVVT Confirm Interp Factor V Activity POC ABG pH POC ABG pCO2 POC ABG pO2 ABG pO2 ABG HCO3 ABG Base Excess ABG Hemoglobin Oxyhemoglobin Sodium Potassium Chloride Carbon Dioxide BUN Creatinine Glucose POC Glucose 126 H 161 H 118 H Lactic Acid Calcium Phosphorus Magnesium Direct Bilirubin AST ALT Alkaline Phosphatase Lactate Dehydrogenase Troponin T C-Reactive Protein Total Protein Albumin Prealbumin Triglycerides Cholesterol LDL Cholesterol Direct HDL Cholesterol PTH Intact Urine pH Urine WBC (Auto) Urine Creatinine Urine Total Protein Fluid Total Protein Vancomycin Trough Rheumatoid Factor Complement C4 Miscellaneous Test Crossmatch 10/27/16 10/27/16 10/27/16 05:03 06:30 06:30 WBC 13.9 H RBC 3.09 L Hgb 9.2 L Hct 27.5 L MCV MCH MCHC RDW 17.0 H Plt Count Lymph % (Auto) [place] % (Auto) Lymph # [place] # Baso # Seg Neutrophils % Seg Neuts % (Manual) 78.0 H Lymphocytes % (Manual) Monocytes % (Manual) Eosinophils % (Manual) Basophils % (Manual) Nucleated RBC % 2.0 H Seg Neutrophils # Seg Neutrophils # Man 10.8 H Lymphocytes # (Manual) Monocytes # (Manual) 1.0 H Eosinophils # (Manual) Basophils # (Manual) PT INR Fibrinogen dRVVT Confirm Interp Factor V Activity POC ABG pH POC ABG pCO2 POC ABG pO2 ABG pO2 ABG HCO3 ABG Base Excess ABG Hemoglobin Oxyhemoglobin Sodium Potassium Chloride Carbon Dioxide BUN 40 H Creatinine 1.5 H Glucose 135 H POC Glucose 107 H Lactic Acid Calcium 8.3 L Phosphorus 1.30 L D Magnesium Direct Bilirubin AST ALT Alkaline Phosphatase Lactate Dehydrogenase Troponin T C-Reactive Protein Total Protein Albumin Prealbumin Triglycerides Cholesterol LDL Cholesterol Direct HDL Cholesterol PTH Intact Urine pH Urine WBC (Auto) Urine Creatinine Urine Total Protein Fluid Total Protein Vancomycin Trough Rheumatoid Factor Complement C4 Miscellaneous Test Crossmatch 10/27/16 10/27/16 10/27/16 13:27 18:07 23:40 WBC RBC Hgb Hct MCV MCH MCHC RDW Plt Count Lymph % (Auto) [place] % (Auto) Lymph # [place] # Baso # Seg Neutrophils % Seg Neuts % (Manual) Lymphocytes % (Manual) Monocytes % (Manual) Eosinophils % (Manual) Basophils % (Manual) Nucleated RBC % Seg Neutrophils # Seg Neutrophils # Man Lymphocytes # (Manual) Monocytes # (Manual) Eosinophils # (Manual) Basophils # (Manual) PT INR Fibrinogen dRVVT Confirm Interp Factor V Activity POC ABG pH POC ABG pCO2 POC ABG pO2 ABG pO2 ABG HCO3 ABG Base Excess ABG Hemoglobin Oxyhemoglobin Sodium Potassium Chloride Carbon Dioxide BUN Creatinine Glucose POC Glucose 117 H 121 H 118 H Lactic Acid Calcium Phosphorus Magnesium Direct Bilirubin AST ALT Alkaline Phosphatase Lactate Dehydrogenase Troponin T C-Reactive Protein Total Protein Albumin Prealbumin Triglycerides Cholesterol LDL Cholesterol Direct HDL Cholesterol PTH Intact Urine pH Urine WBC (Auto) Urine Creatinine Urine Total Protein Fluid Total Protein Vancomycin Trough Rheumatoid Factor Complement C4 Miscellaneous Test Crossmatch 10/28/16 10/28/16 10/28/16 05:48 06:45 06:45 WBC 14.7 H RBC 3.05 L Hgb 9.0 L Hct 26.9 L MCV MCH MCHC RDW 16.8 H Plt Count Lymph % (Auto) 8.2 L [place] % (Auto) 8.4 H Lymph # [place] # 1.2 H Baso # Seg Neutrophils % 81.9 H Seg Neuts % (Manual) Lymphocytes % (Manual) Monocytes % (Manual) Eosinophils % (Manual) Basophils % (Manual) Nucleated RBC % Seg Neutrophils # 12.1 H Seg Neutrophils # Man Lymphocytes # (Manual) Monocytes # (Manual) Eosinophils # (Manual) Basophils # (Manual) PT INR Fibrinogen dRVVT Confirm Interp Factor V Activity POC ABG pH POC ABG pCO2 POC ABG pO2 ABG pO2 ABG HCO3 ABG Base Excess ABG Hemoglobin Oxyhemoglobin Sodium Potassium Chloride Carbon Dioxide BUN 60 H Creatinine 1.9 H Glucose 120 H POC Glucose 114 H Lactic Acid Calcium Phosphorus Magnesium Direct Bilirubin AST ALT Alkaline Phosphatase Lactate Dehydrogenase Troponin T C-Reactive Protein Total Protein Albumin Prealbumin Triglycerides Cholesterol LDL Cholesterol Direct HDL Cholesterol PTH Intact Urine pH Urine WBC (Auto) Urine Creatinine Urine Total Protein Fluid Total Protein Vancomycin Trough Rheumatoid Factor Complement C4 Miscellaneous Test Crossmatch 10/28/16 10/28/16 10/29/16 17:08 23:50 05:10 WBC RBC Hgb Hct MCV MCH MCHC RDW Plt Count Lymph % (Auto) [place] % (Auto) Lymph # [place] # Baso # Seg Neutrophils % Seg Neuts % (Manual) Lymphocytes % (Manual) Monocytes % (Manual) Eosinophils % (Manual) Basophils % (Manual) Nucleated RBC % Seg Neutrophils # Seg Neutrophils # Man Lymphocytes # (Manual) Monocytes # (Manual) Eosinophils # (Manual) Basophils # (Manual) PT INR Fibrinogen dRVVT Confirm Interp Factor V Activity POC ABG pH POC ABG pCO2 POC ABG pO2 ABG pO2 ABG HCO3 ABG Base Excess ABG Hemoglobin Oxyhemoglobin Sodium Potassium Chloride Carbon Dioxide BUN Creatinine Glucose POC Glucose 109 H 110 H 124 H Lactic Acid Calcium Phosphorus Magnesium Direct Bilirubin AST ALT Alkaline Phosphatase Lactate Dehydrogenase Troponin T C-Reactive Protein Total Protein Albumin Prealbumin Triglycerides Cholesterol LDL Cholesterol Direct HDL Cholesterol PTH Intact Urine pH Urine WBC (Auto) Urine Creatinine Urine Total Protein Fluid Total Protein Vancomycin Trough Rheumatoid Factor Complement C4 Miscellaneous Test Crossmatch 10/29/16 10/29/16 10/29/16 07:45 07:45 12:19 WBC 14.7 H RBC 3.15 L Hgb 9.3 L Hct 28.9 L MCV MCH MCHC RDW 17.0 H Plt Count Lymph % (Auto) 11.9 L [place] % (Auto) 8.6 H Lymph # [place] # 1.3 H Baso # Seg Neutrophils % 78.1 H Seg Neuts % (Manual) Lymphocytes % (Manual) Monocytes % (Manual) Eosinophils % (Manual) Basophils % (Manual) Nucleated RBC % Seg Neutrophils # 11.4 H Seg Neutrophils # Man Lymphocytes # (Manual) Monocytes # (Manual) Eosinophils # (Manual) Basophils # (Manual) PT INR Fibrinogen dRVVT Confirm Interp Factor V Activity POC ABG pH POC ABG pCO2 POC ABG pO2 ABG pO2 ABG HCO3 ABG Base Excess ABG Hemoglobin Oxyhemoglobin Sodium Potassium 5.1 H Chloride Carbon Dioxide 19 L BUN 78 H Creatinine 2.2 H Glucose 116 H POC Glucose 118 H Lactic Acid Calcium Phosphorus Magnesium Direct Bilirubin AST ALT Alkaline Phosphatase Lactate Dehydrogenase Troponin T C-Reactive Protein Total Protein Albumin Prealbumin Triglycerides Cholesterol LDL Cholesterol Direct HDL Cholesterol PTH Intact Urine pH Urine WBC (Auto) Urine Creatinine Urine Total Protein Fluid Total Protein Vancomycin Trough Rheumatoid Factor Complement C4 Miscellaneous Test Crossmatch 10/29/16 10/30/16 10/30/16 17:49 01:52 03:28 WBC RBC Hgb Hct MCV MCH MCHC RDW Plt Count Lymph % (Auto) [place] % (Auto) Lymph # [place] # Baso # Seg Neutrophils % Seg Neuts % (Manual) Lymphocytes % (Manual) Monocytes % (Manual) Eosinophils % (Manual) Basophils % (Manual) Nucleated RBC % Seg Neutrophils # Seg Neutrophils # Man Lymphocytes # (Manual) Monocytes # (Manual) Eosinophils # (Manual) Basophils # (Manual) PT INR Fibrinogen dRVVT Confirm Interp Factor V Activity POC ABG pH POC ABG pCO2 POC ABG pO2 ABG pO2 ABG HCO3 ABG Base Excess ABG Hemoglobin Oxyhemoglobin Sodium Potassium 5.4 H Chloride 97.5 L Carbon Dioxide 19 L BUN 90 H Creatinine 2.5 H Glucose POC Glucose 120 H 129 H Lactic Acid Calcium Phosphorus 5.20 H Magnesium Direct Bilirubin AST ALT Alkaline Phosphatase Lactate Dehydrogenase Troponin T C-Reactive Protein Total Protein Albumin Prealbumin Triglycerides Cholesterol LDL Cholesterol Direct HDL Cholesterol PTH Intact Urine pH Urine WBC (Auto) Urine Creatinine Urine Total Protein Fluid Total Protein Vancomycin Trough Rheumatoid Factor Complement C4 Miscellaneous Test Crossmatch 10/30/16 10/30/16 10/30/16 03:28 08:19 08:19 WBC 11.6 H 15.9 H RBC 2.75 L 2.82 L Hgb 7.9 L 8.3 L Hct 24.2 L 25.2 L MCV MCH MCHC RDW 16.7 H 17.2 H Plt Count Lymph % (Auto) [place] % (Auto) 9.8 H Lymph # [place] # 1.1 H Baso # Seg Neutrophils % 74.2 H Seg Neuts % (Manual) Lymphocytes % (Manual) Monocytes % (Manual) Eosinophils % (Manual) Basophils % (Manual) Nucleated RBC % Seg Neutrophils # 8.6 H Seg Neutrophils # Man Lymphocytes # (Manual) Monocytes # (Manual) Eosinophils # (Manual) Basophils # (Manual) PT INR Fibrinogen dRVVT Confirm Interp Factor V Activity POC ABG pH POC ABG pCO2 POC ABG pO2 ABG pO2 ABG HCO3 ABG Base Excess ABG Hemoglobin Oxyhemoglobin Sodium Potassium 5.3 H Chloride 97.4 L Carbon Dioxide 19 L BUN 93 H Creatinine 2.6 H Glucose POC Glucose Lactic Acid Calcium Phosphorus Magnesium Direct Bilirubin AST ALT Alkaline Phosphatase Lactate Dehydrogenase Troponin T C-Reactive Protein Total Protein Albumin Prealbumin Triglycerides Cholesterol LDL Cholesterol Direct HDL Cholesterol PTH Intact Urine pH Urine WBC (Auto) Urine Creatinine Urine Total Protein Fluid Total Protein Vancomycin Trough Rheumatoid Factor Complement C4 Miscellaneous Test Crossmatch 10/30/16 10/30/16 10/31/16 17:11 23:56 00:40 WBC RBC Hgb Hct MCV MCH MCHC RDW Plt Count Lymph % (Auto) [place] % (Auto) Lymph # [place] # Baso # Seg Neutrophils % Seg Neuts % (Manual) Lymphocytes % (Manual) Monocytes % (Manual) Eosinophils % (Manual) Basophils % (Manual) Nucleated RBC % Seg Neutrophils # Seg Neutrophils # Man Lymphocytes # (Manual) Monocytes # (Manual) Eosinophils # (Manual) Basophils # (Manual) PT INR Fibrinogen dRVVT Confirm Interp Factor V Activity POC ABG pH POC ABG pCO2 POC ABG pO2 ABG pO2 ABG HCO3 ABG Base Excess ABG Hemoglobin Oxyhemoglobin Sodium Potassium Chloride Carbon Dioxide BUN Creatinine Glucose POC Glucose 106 H 117 H 120 H Lactic Acid Calcium Phosphorus Magnesium Direct Bilirubin AST ALT Alkaline Phosphatase Lactate Dehydrogenase Troponin T C-Reactive Protein Total Protein Albumin Prealbumin Triglycerides Cholesterol LDL Cholesterol Direct HDL Cholesterol PTH Intact Urine pH Urine WBC (Auto) Urine Creatinine Urine Total Protein Fluid Total Protein Vancomycin Trough Rheumatoid Factor Complement C4 Miscellaneous Test Crossmatch 10/31/16 10/31/16 10/31/16 05:43 07:15 07:15 WBC 12.1 H RBC 2.63 L Hgb 7.7 L Hct 23.3 L MCV MCH MCHC RDW 16.7 H Plt Count Lymph % (Auto) 11.7 L [place] % (Auto) 7.7 H Lymph # [place] # 0.9 H Baso # Seg Neutrophils % 78.0 H Seg Neuts % (Manual) Lymphocytes % (Manual) Monocytes % (Manual) Eosinophils % (Manual) Basophils % (Manual) Nucleated RBC % Seg Neutrophils # 9.4 H Seg Neutrophils # Man Lymphocytes # (Manual) Monocytes # (Manual) Eosinophils # (Manual) Basophils # (Manual) PT INR Fibrinogen dRVVT Confirm Interp Factor V Activity POC ABG pH POC ABG pCO2 POC ABG pO2 ABG pO2 ABG HCO3 ABG Base Excess ABG Hemoglobin Oxyhemoglobin Sodium Potassium Chloride 96.4 L Carbon Dioxide 21 L BUN 99 H Creatinine 2.6 H Glucose 144 H POC Glucose 125 H Lactic Acid Calcium Phosphorus 4.80 H Magnesium Direct Bilirubin AST ALT Alkaline Phosphatase Lactate Dehydrogenase Troponin T C-Reactive Protein Total Protein Albumin Prealbumin Triglycerides Cholesterol LDL Cholesterol Direct HDL Cholesterol PTH Intact Urine pH Urine WBC (Auto) Urine Creatinine Urine Total Protein Fluid Total Protein Vancomycin Trough Rheumatoid Factor Complement C4 Miscellaneous Test Crossmatch 10/31/16 10/31/16 11/01/16 11:46 18:34 00:20 WBC RBC Hgb Hct MCV MCH MCHC RDW Plt Count Lymph % (Auto) [place] % (Auto) Lymph # [place] # Baso # Seg Neutrophils % Seg Neuts % (Manual) Lymphocytes % (Manual) Monocytes % (Manual) Eosinophils % (Manual) Basophils % (Manual) Nucleated RBC % Seg Neutrophils # Seg Neutrophils # Man Lymphocytes # (Manual) Monocytes # (Manual) Eosinophils # (Manual) Basophils # (Manual) PT INR Fibrinogen dRVVT Confirm Interp Factor V Activity POC ABG pH POC ABG pCO2 POC ABG pO2 ABG pO2 ABG HCO3 ABG Base Excess ABG Hemoglobin Oxyhemoglobin Sodium Potassium Chloride Carbon Dioxide BUN Creatinine Glucose POC Glucose 159 H 140 H 132 H Lactic Acid Calcium Phosphorus Magnesium Direct Bilirubin AST ALT Alkaline Phosphatase Lactate Dehydrogenase Troponin T C-Reactive Protein Total Protein Albumin Prealbumin Triglycerides Cholesterol LDL Cholesterol Direct HDL Cholesterol PTH Intact Urine pH Urine WBC (Auto) Urine Creatinine Urine Total Protein Fluid Total Protein Vancomycin Trough Rheumatoid Factor Complement C4 Miscellaneous Test Crossmatch 11/01/16 11/01/16 11/01/16 04:55 04:55 06:11 WBC 11.2 H RBC 2.68 L Hgb 7.5 L Hct 23.7 L MCV MCH MCHC RDW 16.1 H Plt Count Lymph % (Auto) [place] % (Auto) 9.8 H Lymph # [place] # 1.1 H Baso # Seg Neutrophils % 70.8 H Seg Neuts % (Manual) Lymphocytes % (Manual) Monocytes % (Manual) Eosinophils % (Manual) Basophils % (Manual) Nucleated RBC % Seg Neutrophils # 7.9 H Seg Neutrophils # Man Lymphocytes # (Manual) Monocytes # (Manual) Eosinophils # (Manual) Basophils # (Manual) PT INR Fibrinogen dRVVT Confirm Interp Factor V Activity POC ABG pH POC ABG pCO2 POC ABG pO2 ABG pO2 ABG HCO3 ABG Base Excess ABG Hemoglobin Oxyhemoglobin Sodium Potassium 3.3 L D Chloride Carbon Dioxide BUN 61 H Creatinine 1.9 H Glucose 114 H POC Glucose 115 H Lactic Acid Calcium Phosphorus 1.80 L D Magnesium Direct Bilirubin AST ALT Alkaline Phosphatase Lactate Dehydrogenase Troponin T C-Reactive Protein Total Protein Albumin Prealbumin Triglycerides Cholesterol LDL Cholesterol Direct HDL Cholesterol PTH Intact Urine pH Urine WBC (Auto) Urine Creatinine Urine Total Protein Fluid Total Protein Vancomycin Trough Rheumatoid Factor Complement C4 Miscellaneous Test Crossmatch 11/01/16 11/01/16 11/01/16 12:29 18:23 23:58 WBC RBC Hgb Hct MCV MCH MCHC RDW Plt Count Lymph % (Auto) [place] % (Auto) Lymph # [place] # Baso # Seg Neutrophils % Seg Neuts % (Manual) Lymphocytes % (Manual) Monocytes % (Manual) Eosinophils % (Manual) Basophils % (Manual) Nucleated RBC % Seg Neutrophils # Seg Neutrophils # Man Lymphocytes # (Manual) Monocytes # (Manual) Eosinophils # (Manual) Basophils # (Manual) PT INR Fibrinogen dRVVT Confirm Interp Factor V Activity POC ABG pH POC ABG pCO2 POC ABG pO2 ABG pO2 ABG HCO3 ABG Base Excess ABG Hemoglobin Oxyhemoglobin Sodium Potassium Chloride Carbon Dioxide BUN Creatinine Glucose POC Glucose 142 H 143 H 128 H Lactic Acid Calcium Phosphorus Magnesium Direct Bilirubin AST ALT Alkaline Phosphatase Lactate Dehydrogenase Troponin T C-Reactive Protein Total Protein Albumin Prealbumin Triglycerides Cholesterol LDL Cholesterol Direct HDL Cholesterol PTH Intact Urine pH Urine WBC (Auto) Urine Creatinine Urine Total Protein Fluid Total Protein Vancomycin Trough Rheumatoid Factor Complement C4 Miscellaneous Test Crossmatch 11/02/16 11/02/16 11/02/16 04:16 05:29 11:58 WBC RBC Hgb Hct MCV MCH MCHC RDW Plt Count Lymph % (Auto) [place] % (Auto) Lymph # [place] # Baso # Seg Neutrophils % Seg Neuts % (Manual) Lymphocytes % (Manual) Monocytes % (Manual) Eosinophils % (Manual) Basophils % (Manual) Nucleated RBC % Seg Neutrophils # Seg Neutrophils # Man Lymphocytes # (Manual) Monocytes # (Manual) Eosinophils # (Manual) Basophils # (Manual) PT INR Fibrinogen dRVVT Confirm Interp Factor V Activity POC ABG pH POC ABG pCO2 POC ABG pO2 ABG pO2 ABG HCO3 ABG Base Excess ABG Hemoglobin Oxyhemoglobin Sodium Potassium 3.1 L Chloride Carbon Dioxide BUN 73 H Creatinine 2.3 H Glucose 112 H POC Glucose 135 H 149 H Lactic Acid Calcium Phosphorus Magnesium Direct Bilirubin AST ALT Alkaline Phosphatase Lactate Dehydrogenase Troponin T C-Reactive Protein Total Protein Albumin Prealbumin Triglycerides Cholesterol LDL Cholesterol Direct HDL Cholesterol PTH Intact Urine pH Urine WBC (Auto) Urine Creatinine Urine Total Protein Fluid Total Protein Vancomycin Trough Rheumatoid Factor Complement C4 Miscellaneous Test Crossmatch 11/02/16 11/02/16 11/03/16 17:42 22:54 06:00 WBC RBC Hgb Hct MCV MCH MCHC RDW Plt Count Lymph % (Auto) [place] % (Auto) Lymph # [place] # Baso # Seg Neutrophils % Seg Neuts % (Manual) Lymphocytes % (Manual) Monocytes % (Manual) Eosinophils % (Manual) Basophils % (Manual) Nucleated RBC % Seg Neutrophils # Seg Neutrophils # Man Lymphocytes # (Manual) Monocytes # (Manual) Eosinophils # (Manual) Basophils # (Manual) PT INR Fibrinogen dRVVT Confirm Interp Factor V Activity POC ABG pH POC ABG pCO2 POC ABG pO2 ABG pO2 ABG HCO3 ABG Base Excess ABG Hemoglobin Oxyhemoglobin Sodium Potassium Chloride 96.7 L Carbon Dioxide BUN 41 H Creatinine 1.5 H Glucose 145 H POC Glucose 182 H 115 H Lactic Acid Calcium Phosphorus 1.60 L D Magnesium 1.50 L Direct Bilirubin AST ALT Alkaline Phosphatase Lactate Dehydrogenase Troponin T C-Reactive Protein Total Protein Albumin Prealbumin Triglycerides Cholesterol LDL Cholesterol Direct HDL Cholesterol PTH Intact Urine pH Urine WBC (Auto) Urine Creatinine Urine Total Protein Fluid Total Protein Vancomycin Trough Rheumatoid Factor Complement C4 Miscellaneous Test Crossmatch 11/03/16 11/03/16 11/03/16 11:53 17:45 23:37 WBC RBC Hgb Hct MCV MCH MCHC RDW Plt Count Lymph % (Auto) [place] % (Auto) Lymph # [place] # Baso # Seg Neutrophils % Seg Neuts % (Manual) Lymphocytes % (Manual) Monocytes % (Manual) Eosinophils % (Manual) Basophils % (Manual) Nucleated RBC % Seg Neutrophils # Seg Neutrophils # Man Lymphocytes # (Manual) Monocytes # (Manual) Eosinophils # (Manual) Basophils # (Manual) PT INR Fibrinogen dRVVT Confirm Interp Factor V Activity POC ABG pH POC ABG pCO2 POC ABG pO2 ABG pO2 ABG HCO3 ABG Base Excess ABG Hemoglobin Oxyhemoglobin Sodium Potassium Chloride Carbon Dioxide BUN Creatinine Glucose POC Glucose 131 H 134 H 113 H Lactic Acid Calcium Phosphorus Magnesium Direct Bilirubin AST ALT Alkaline Phosphatase Lactate Dehydrogenase Troponin T C-Reactive Protein Total Protein Albumin Prealbumin Triglycerides Cholesterol LDL Cholesterol Direct HDL Cholesterol PTH Intact Urine pH Urine WBC (Auto) Urine Creatinine Urine Total Protein Fluid Total Protein Vancomycin Trough Rheumatoid Factor Complement C4 Miscellaneous Test Crossmatch 11/04/16 11/04/16 11/04/16 05:41 06:00 12:10 WBC RBC Hgb Hct MCV MCH MCHC RDW Plt Count Lymph % (Auto) [place] % (Auto) Lymph # [place] # Baso # Seg Neutrophils % Seg Neuts % (Manual) Lymphocytes % (Manual) Monocytes % (Manual) Eosinophils % (Manual) Basophils % (Manual) Nucleated RBC % Seg Neutrophils # Seg Neutrophils # Man Lymphocytes # (Manual) Monocytes # (Manual) Eosinophils # (Manual) Basophils # (Manual) PT INR Fibrinogen dRVVT Confirm Interp Factor V Activity POC ABG pH POC ABG pCO2 POC ABG pO2 ABG pO2 ABG HCO3 ABG Base Excess ABG Hemoglobin Oxyhemoglobin Sodium Potassium Chloride 96.7 L Carbon Dioxide BUN 52 H Creatinine 1.9 H Glucose 126 H POC Glucose 137 H 191 H Lactic Acid Calcium Phosphorus Magnesium Direct Bilirubin AST ALT Alkaline Phosphatase Lactate Dehydrogenase Troponin T C-Reactive Protein Total Protein Albumin Prealbumin Triglycerides Cholesterol LDL Cholesterol Direct HDL Cholesterol PTH Intact Urine pH Urine WBC (Auto) Urine Creatinine Urine Total Protein Fluid Total Protein Vancomycin Trough Rheumatoid Factor Complement C4 Miscellaneous Test Crossmatch 11/04/16 11/05/16 11/05/16 22:57 03:10 05:10 WBC RBC Hgb Hct MCV MCH MCHC RDW Plt Count Lymph % (Auto) [place] % (Auto) Lymph # [place] # Baso # Seg Neutrophils % Seg Neuts % (Manual) Lymphocytes % (Manual) Monocytes % (Manual) Eosinophils % (Manual) Basophils % (Manual) Nucleated RBC % Seg Neutrophils # Seg Neutrophils # Man Lymphocytes # (Manual) Monocytes # (Manual) Eosinophils # (Manual) Basophils # (Manual) PT INR Fibrinogen dRVVT Confirm Interp Factor V Activity POC ABG pH POC ABG pCO2 POC ABG pO2 ABG pO2 ABG HCO3 ABG Base Excess ABG Hemoglobin Oxyhemoglobin Sodium 136 L Potassium Chloride 97.2 L Carbon Dioxide BUN 32 H Creatinine 1.3 H Glucose 123 H POC Glucose 125 H 108 H Lactic Acid Calcium 7.8 L Phosphorus Magnesium Direct Bilirubin AST ALT Alkaline Phosphatase Lactate Dehydrogenase Troponin T C-Reactive Protein Total Protein Albumin Prealbumin Triglycerides Cholesterol LDL Cholesterol Direct HDL Cholesterol PTH Intact Urine pH Urine WBC (Auto) Urine Creatinine Urine Total Protein Fluid Total Protein Vancomycin Trough Rheumatoid Factor Complement C4 Miscellaneous Test Crossmatch 11/05/16 11/05/16 11/05/16 12:23 13:09 13:25 WBC RBC Hgb Hct MCV MCH MCHC RDW Plt Count Lymph % (Auto) [place] % (Auto) Lymph # [place] # Baso # Seg Neutrophils % Seg Neuts % (Manual) Lymphocytes % (Manual) Monocytes % (Manual) Eosinophils % (Manual) Basophils % (Manual) Nucleated RBC % Seg Neutrophils # Seg Neutrophils # Man Lymphocytes # (Manual) Monocytes # (Manual) Eosinophils # (Manual) Basophils # (Manual) PT INR Fibrinogen dRVVT Confirm Interp Factor V Activity POC ABG pH POC ABG pCO2 POC ABG pO2 ABG pO2 ABG HCO3 ABG Base Excess ABG Hemoglobin Oxyhemoglobin Sodium Potassium Chloride Carbon Dioxide BUN Creatinine Glucose POC Glucose 124 H Lactic Acid Calcium Phosphorus Magnesium Direct Bilirubin AST ALT Alkaline Phosphatase Lactate Dehydrogenase Troponin T C-Reactive Protein 11.40 H Total Protein Albumin Prealbumin Triglycerides Cholesterol LDL Cholesterol Direct HDL Cholesterol PTH Intact Urine pH 9.0 H Urine WBC (Auto) Urine Creatinine Urine Total Protein Fluid Total Protein Vancomycin Trough Rheumatoid Factor Complement C4 Miscellaneous Test Crossmatch 11/05/16 11/05/16 11/05/16 13:25 17:54 23:42 WBC RBC Hgb Hct MCV MCH MCHC RDW Plt Count Lymph % (Auto) [place] % (Auto) Lymph # [place] # Baso # Seg Neutrophils % Seg Neuts % (Manual) Lymphocytes % (Manual) Monocytes % (Manual) Eosinophils % (Manual) Basophils % (Manual) Nucleated RBC % Seg Neutrophils # Seg Neutrophils # Man Lymphocytes # (Manual) Monocytes # (Manual) Eosinophils # (Manual) Basophils # (Manual) PT INR Fibrinogen dRVVT Confirm Interp Factor V Activity POC ABG pH POC ABG pCO2 POC ABG pO2 ABG pO2 ABG HCO3 ABG Base Excess ABG Hemoglobin Oxyhemoglobin Sodium Potassium Chloride Carbon Dioxide BUN Creatinine Glucose POC Glucose 114 H 134 H Lactic Acid Calcium Phosphorus Magnesium Direct Bilirubin AST ALT Alkaline Phosphatase Lactate Dehydrogenase Troponin T C-Reactive Protein Total Protein Albumin Prealbumin Triglycerides Cholesterol LDL Cholesterol Direct HDL Cholesterol PTH Intact Urine pH Urine WBC (Auto) Urine Creatinine Urine Total Protein Fluid Total Protein Vancomycin Trough Rheumatoid Factor Complement C4 Miscellaneous Test Flexitest 1 H Crossmatch 11/06/16 11/06/16 11/06/16 04:56 06:25 06:25 WBC RBC 2.50 L Hgb 7.3 L Hct 22.5 L MCV MCH MCHC RDW 16.9 H Plt Count Lymph % (Auto) [place] % (Auto) 10.5 H Lymph # [place] # 1.1 H Baso # Seg Neutrophils % Seg Neuts % (Manual) Lymphocytes % (Manual) Monocytes % (Manual) Eosinophils % (Manual) Basophils % (Manual) Nucleated RBC % Seg Neutrophils # Seg Neutrophils # Man Lymphocytes # (Manual) Monocytes # (Manual) Eosinophils # (Manual) Basophils # (Manual) PT INR Fibrinogen dRVVT Confirm Interp Factor V Activity POC ABG pH POC ABG pCO2 POC ABG pO2 ABG pO2 ABG HCO3 ABG Base Excess ABG Hemoglobin Oxyhemoglobin Sodium Potassium 5.1 H Chloride 95.9 L Carbon Dioxide BUN 52 H Creatinine 1.8 H Glucose 117 H POC Glucose 120 H Lactic Acid Calcium Phosphorus Magnesium Direct Bilirubin AST 103 H ALT 77 H Alkaline Phosphatase 285 H Lactate Dehydrogenase Troponin T C-Reactive Protein Total Protein 6.2 L Albumin 1.8 L Prealbumin 0.180 L Triglycerides Cholesterol LDL Cholesterol Direct HDL Cholesterol PTH Intact Urine pH Urine WBC (Auto) Urine Creatinine Urine Total Protein Fluid Total Protein Vancomycin Trough Rheumatoid Factor Complement C4 Miscellaneous Test Crossmatch 11/06/16 11/06/16 11/06/16 11:56 17:14 23:52 WBC RBC Hgb Hct MCV MCH MCHC RDW Plt Count Lymph % (Auto) [place] % (Auto) Lymph # [place] # Baso # Seg Neutrophils % Seg Neuts % (Manual) Lymphocytes % (Manual) Monocytes % (Manual) Eosinophils % (Manual) Basophils % (Manual) Nucleated RBC % Seg Neutrophils # Seg Neutrophils # Man Lymphocytes # (Manual) Monocytes # (Manual) Eosinophils # (Manual) Basophils # (Manual) PT INR Fibrinogen dRVVT Confirm Interp Factor V Activity POC ABG pH POC ABG pCO2 POC ABG pO2 ABG pO2 ABG HCO3 ABG Base Excess ABG Hemoglobin Oxyhemoglobin Sodium Potassium Chloride Carbon Dioxide BUN Creatinine Glucose POC Glucose 141 H 125 H 130 H Lactic Acid Calcium Phosphorus Magnesium Direct Bilirubin AST ALT Alkaline Phosphatase Lactate Dehydrogenase Troponin T C-Reactive Protein Total Protein Albumin Prealbumin Triglycerides Cholesterol LDL Cholesterol Direct HDL Cholesterol PTH Intact Urine pH Urine WBC (Auto) Urine Creatinine Urine Total Protein Fluid Total Protein Vancomycin Trough Rheumatoid Factor Complement C4 Miscellaneous Test Crossmatch 11/07/16 11/07/16 11/07/16 06:30 06:30 09:37 WBC RBC 2.18 L Hgb 6.3 L Hct 19.7 L* MCV MCH MCHC RDW 16.8 H Plt Count Lymph % (Auto) [place] % (Auto) 10.0 H Lymph # [place] # 1.0 H Baso # Seg Neutrophils % Seg Neuts % (Manual) Lymphocytes % (Manual) Monocytes % (Manual) Eosinophils % (Manual) Basophils % (Manual) Nucleated RBC % Seg Neutrophils # Seg Neutrophils # Man Lymphocytes # (Manual) Monocytes # (Manual) Eosinophils # (Manual) Basophils # (Manual) PT INR Fibrinogen dRVVT Confirm Interp Factor V Activity POC ABG pH POC ABG pCO2 POC ABG pO2 ABG pO2 ABG HCO3 ABG Base Excess ABG Hemoglobin Oxyhemoglobin Sodium 135 L Potassium Chloride 95.6 L Carbon Dioxide BUN 70 H Creatinine 2.0 H Glucose 126 H POC Glucose Lactic Acid Calcium Phosphorus Magnesium Direct Bilirubin AST ALT Alkaline Phosphatase Lactate Dehydrogenase Troponin T C-Reactive Protein Total Protein Albumin Prealbumin Triglycerides Cholesterol LDL Cholesterol Direct HDL Cholesterol PTH Intact Urine pH Urine WBC (Auto) Urine Creatinine Urine Total Protein Fluid Total Protein Vancomycin Trough Rheumatoid Factor Complement C4 Miscellaneous Test Crossmatch See Detail 11/07/16 11/07/16 11/07/16 12:52 18:51 21:26 WBC RBC Hgb Hct MCV MCH MCHC RDW Plt Count Lymph % (Auto) [place] % (Auto) Lymph # [place] # Baso # Seg Neutrophils % Seg Neuts % (Manual) Lymphocytes % (Manual) Monocytes % (Manual) Eosinophils % (Manual) Basophils % (Manual) Nucleated RBC % Seg Neutrophils # Seg Neutrophils # Man Lymphocytes # (Manual) Monocytes # (Manual) Eosinophils # (Manual) Basophils # (Manual) PT INR Fibrinogen dRVVT Confirm Interp Factor V Activity POC ABG pH 7.523 H POC ABG pCO2 34.6 L POC ABG pO2 53 L ABG pO2 ABG HCO3 ABG Base Excess ABG Hemoglobin Oxyhemoglobin Sodium Potassium Chloride Carbon Dioxide BUN Creatinine Glucose POC Glucose 142 H 155 H Lactic Acid Calcium Phosphorus Magnesium Direct Bilirubin AST ALT Alkaline Phosphatase Lactate Dehydrogenase Troponin T C-Reactive Protein Total Protein Albumin Prealbumin Triglycerides Cholesterol LDL Cholesterol Direct HDL Cholesterol PTH Intact Urine pH Urine WBC (Auto) Urine Creatinine Urine Total Protein Fluid Total Protein Vancomycin Trough Rheumatoid Factor Complement C4 Miscellaneous Test Crossmatch 11/07/16 11/08/16 11/08/16 21:34 13:03 23:37 WBC RBC 2.63 L Hgb 7.7 L Hct 22.7 L MCV MCH MCHC RDW 17.0 H Plt Count Lymph % (Auto) [place] % (Auto) Lymph # [place] # Baso # Seg Neutrophils % Seg Neuts % (Manual) Lymphocytes % (Manual) Monocytes % (Manual) Eosinophils % (Manual) Basophils % (Manual) Nucleated RBC % Seg Neutrophils # Seg Neutrophils # Man Lymphocytes # (Manual) Monocytes # (Manual) Eosinophils # (Manual) Basophils # (Manual) PT INR Fibrinogen dRVVT Confirm Interp Factor V Activity POC ABG pH 7.478 H POC ABG pCO2 34.0 L POC ABG pO2 50 L ABG pO2 ABG HCO3 ABG Base Excess ABG Hemoglobin Oxyhemoglobin Sodium Potassium Chloride Carbon Dioxide BUN Creatinine Glucose POC Glucose 113 H Lactic Acid Calcium Phosphorus Magnesium Direct Bilirubin AST ALT Alkaline Phosphatase Lactate Dehydrogenase Troponin T C-Reactive Protein Total Protein Albumin Prealbumin Triglycerides Cholesterol LDL Cholesterol Direct HDL Cholesterol PTH Intact Urine pH Urine WBC (Auto) Urine Creatinine Urine Total Protein Fluid Total Protein Vancomycin Trough Rheumatoid Factor Complement C4 Miscellaneous Test Crossmatch 11/09/16 11/09/16 11/09/16 04:35 10:15 18:21 WBC RBC 2.68 L Hgb 7.8 L Hct 23.3 L MCV MCH MCHC RDW 17.0 H Plt Count Lymph % (Auto) [place] % (Auto) 12.1 H Lymph # [place] # 1.1 H Baso # Seg Neutrophils % Seg Neuts % (Manual) Lymphocytes % (Manual) Monocytes % (Manual) Eosinophils % (Manual) Basophils % (Manual) Nucleated RBC % Seg Neutrophils # Seg Neutrophils # Man Lymphocytes # (Manual) Monocytes # (Manual) Eosinophils # (Manual) Basophils # (Manual) PT INR Fibrinogen dRVVT Confirm Interp Factor V Activity POC ABG pH POC ABG pCO2 POC ABG pO2 ABG pO2 ABG HCO3 ABG Base Excess ABG Hemoglobin Oxyhemoglobin Sodium Potassium Chloride Carbon Dioxide BUN 51 H Creatinine 1.8 H Glucose POC Glucose 60 L Lactic Acid Calcium 8.3 L Phosphorus Magnesium Direct Bilirubin AST ALT Alkaline Phosphatase Lactate Dehydrogenase Troponin T C-Reactive Protein Total Protein Albumin Prealbumin Triglycerides Cholesterol LDL Cholesterol Direct HDL Cholesterol PTH Intact Urine pH Urine WBC (Auto) Urine Creatinine Urine Total Protein Fluid Total Protein Vancomycin Trough Rheumatoid Factor Complement C4 Miscellaneous Test Crossmatch 11/09/16 11/10/16 11/10/16 18:55 07:00 11:51 WBC RBC Hgb Hct MCV MCH MCHC RDW Plt Count Lymph % (Auto) [place] % (Auto) Lymph # [place] # Baso # Seg Neutrophils % Seg Neuts % (Manual) Lymphocytes % (Manual) Monocytes % (Manual) Eosinophils % (Manual) Basophils % (Manual) Nucleated RBC % Seg Neutrophils # Seg Neutrophils # Man Lymphocytes # (Manual) Monocytes # (Manual) Eosinophils # (Manual) Basophils # (Manual) PT INR Fibrinogen dRVVT Confirm Interp Factor V Activity POC ABG pH POC ABG pCO2 POC ABG pO2 ABG pO2 ABG HCO3 ABG Base Excess ABG Hemoglobin Oxyhemoglobin Sodium Potassium 3.0 L D Chloride 97.4 L Carbon Dioxide BUN 28 H Creatinine 1.3 H Glucose POC Glucose 68 L 120 H Lactic Acid Calcium 7.8 L Phosphorus Magnesium Direct Bilirubin AST ALT Alkaline Phosphatase Lactate Dehydrogenase Troponin T C-Reactive Protein Total Protein Albumin Prealbumin Triglycerides Cholesterol LDL Cholesterol Direct HDL Cholesterol PTH Intact Urine pH Urine WBC (Auto) Urine Creatinine Urine Total Protein Fluid Total Protein Vancomycin Trough Rheumatoid Factor Complement C4 Miscellaneous Test Crossmatch 11/10/16 11/11/16 11/11/16 14:20 06:59 06:59 WBC RBC 2.81 L Hgb 8.1 L Hct 24.4 L MCV MCH MCHC RDW 16.4 H Plt Count Lymph % (Auto) [place] % (Auto) 10.8 H Lymph # [place] # 1.0 H Baso # Seg Neutrophils % Seg Neuts % (Manual) Lymphocytes % (Manual) Monocytes % (Manual) Eosinophils % (Manual) Basophils % (Manual) Nucleated RBC % Seg Neutrophils # Seg Neutrophils # Man Lymphocytes # (Manual) Monocytes # (Manual) Eosinophils # (Manual) Basophils # (Manual) PT INR Fibrinogen dRVVT Confirm Interp Factor V Activity POC ABG pH POC ABG pCO2 POC ABG pO2 ABG pO2 ABG HCO3 ABG Base Excess ABG Hemoglobin Oxyhemoglobin Sodium Potassium Chloride Carbon Dioxide BUN Creatinine Glucose POC Glucose Lactic Acid Calcium Phosphorus Magnesium Direct Bilirubin AST ALT Alkaline Phosphatase Lactate Dehydrogenase 196 H Troponin T C-Reactive Protein Total Protein 6.1 L Albumin Prealbumin Triglycerides Cholesterol LDL Cholesterol Direct HDL Cholesterol PTH Intact Urine pH Urine WBC (Auto) Urine Creatinine Urine Total Protein Fluid Total Protein < 3.0 L Vancomycin Trough Rheumatoid Factor Complement C4 Miscellaneous Test Crossmatch 11/11/16 11/11/16 11/12/16 06:59 09:50 04:00 WBC RBC Hgb Hct MCV MCH MCHC RDW Plt Count Lymph % (Auto) [place] % (Auto) Lymph # [place] # Baso # Seg Neutrophils % Seg Neuts % (Manual) Lymphocytes % (Manual) Monocytes % (Manual) Eosinophils % (Manual) Basophils % (Manual) Nucleated RBC % Seg Neutrophils # Seg Neutrophils # Man Lymphocytes # (Manual) Monocytes # (Manual) Eosinophils # (Manual) Basophils # (Manual) PT INR 1.18 H Fibrinogen dRVVT Confirm Interp Factor V Activity POC ABG pH POC ABG pCO2 POC ABG pO2 ABG pO2 ABG HCO3 ABG Base Excess ABG Hemoglobin Oxyhemoglobin Sodium 136 L 133 L Potassium Chloride 96.1 L 94.8 L Carbon Dioxide 21 L BUN 37 H 42 H Creatinine 1.8 H 2.0 H Glucose POC Glucose Lactic Acid Calcium Phosphorus Magnesium Direct Bilirubin AST ALT Alkaline Phosphatase Lactate Dehydrogenase Troponin T C-Reactive Protein Total Protein Albumin Prealbumin Triglycerides Cholesterol LDL Cholesterol Direct HDL Cholesterol PTH Intact Urine pH Urine WBC (Auto) Urine Creatinine Urine Total Protein Fluid Total Protein Vancomycin Trough Rheumatoid Factor Complement C4 Miscellaneous Test Crossmatch 11/12/16 11/12/16 11/13/16 04:00 23:55 05:53 WBC RBC Hgb 8.9 L Hct 27.2 L MCV MCH MCHC RDW Plt Count Lymph % (Auto) [place] % (Auto) Lymph # [place] # Baso # Seg Neutrophils % Seg Neuts % (Manual) Lymphocytes % (Manual) Monocytes % (Manual) Eosinophils % (Manual) Basophils % (Manual) Nucleated RBC % Seg Neutrophils # Seg Neutrophils # Man Lymphocytes # (Manual) Monocytes # (Manual) Eosinophils # (Manual) Basophils # (Manual) PT INR Fibrinogen dRVVT Confirm Interp Factor V Activity POC ABG pH POC ABG pCO2 POC ABG pO2 ABG pO2 ABG HCO3 ABG Base Excess ABG Hemoglobin Oxyhemoglobin Sodium Potassium Chloride Carbon Dioxide BUN Creatinine Glucose POC Glucose 132 H 120 H Lactic Acid Calcium Phosphorus Magnesium Direct Bilirubin AST ALT Alkaline Phosphatase Lactate Dehydrogenase Troponin T C-Reactive Protein Total Protein Albumin Prealbumin Triglycerides Cholesterol LDL Cholesterol Direct HDL Cholesterol PTH Intact Urine pH Urine WBC (Auto) Urine Creatinine Urine Total Protein Fluid Total Protein Vancomycin Trough Rheumatoid Factor Complement C4 Miscellaneous Test Crossmatch 11/13/16 11/13/16 11/13/16 11:43 17:09 23:41 WBC RBC Hgb Hct MCV MCH MCHC RDW Plt Count Lymph % (Auto) [place] % (Auto) Lymph # [place] # Baso # Seg Neutrophils % Seg Neuts % (Manual) Lymphocytes % (Manual) Monocytes % (Manual) Eosinophils % (Manual) Basophils % (Manual) Nucleated RBC % Seg Neutrophils # Seg Neutrophils # Man Lymphocytes # (Manual) Monocytes # (Manual) Eosinophils # (Manual) Basophils # (Manual) PT INR Fibrinogen dRVVT Confirm Interp Factor V Activity POC ABG pH POC ABG pCO2 POC ABG pO2 ABG pO2 ABG HCO3 ABG Base Excess ABG Hemoglobin Oxyhemoglobin Sodium Potassium Chloride Carbon Dioxide BUN Creatinine Glucose POC Glucose 114 H 113 H 108 H Lactic Acid Calcium Phosphorus Magnesium Direct Bilirubin AST ALT Alkaline Phosphatase Lactate Dehydrogenase Troponin T C-Reactive Protein Total Protein Albumin Prealbumin Triglycerides Cholesterol LDL Cholesterol Direct HDL Cholesterol PTH Intact Urine pH Urine WBC (Auto) Urine Creatinine Urine Total Protein Fluid Total Protein Vancomycin Trough Rheumatoid Factor Complement C4 Miscellaneous Test Crossmatch 11/13/16 11/15/16 11/15/16 Unknown 00:37 03:30 WBC 11.2 H RBC 2.72 L Hgb 7.6 L Hct 23.4 L MCV MCH MCHC RDW 16.5 H Plt Count Lymph % (Auto) [place] % (Auto) Lymph # [place] # Baso # Seg Neutrophils % Seg Neuts % (Manual) Lymphocytes % (Manual) Monocytes % (Manual) Eosinophils % (Manual) Basophils % (Manual) Nucleated RBC % Seg Neutrophils # Seg Neutrophils # Man Lymphocytes # (Manual) Monocytes # (Manual) Eosinophils # (Manual) Basophils # (Manual) PT INR Fibrinogen dRVVT Confirm Interp Factor V Activity POC ABG pH POC ABG pCO2 POC ABG pO2 ABG pO2 ABG HCO3 ABG Base Excess ABG Hemoglobin Oxyhemoglobin Sodium 135 L Potassium Chloride 95.2 L Carbon Dioxide BUN 52 H Creatinine 2.2 H Glucose POC Glucose 108 H Lactic Acid Calcium Phosphorus Magnesium Direct Bilirubin AST ALT Alkaline Phosphatase Lactate Dehydrogenase Troponin T C-Reactive Protein Total Protein Albumin Prealbumin Triglycerides Cholesterol LDL Cholesterol Direct HDL Cholesterol PTH Intact Urine pH Urine WBC (Auto) Urine Creatinine Urine Total Protein Fluid Total Protein Vancomycin Trough Rheumatoid Factor Complement C4 Miscellaneous Test Crossmatch 11/15/16 11/15/16 11/15/16 03:30 05:04 11:50 WBC RBC Hgb Hct MCV MCH MCHC RDW Plt Count Lymph % (Auto) [place] % (Auto) Lymph # [place] # Baso # Seg Neutrophils % Seg Neuts % (Manual) Lymphocytes % (Manual) Monocytes % (Manual) Eosinophils % (Manual) Basophils % (Manual) Nucleated RBC % Seg Neutrophils # Seg Neutrophils # Man Lymphocytes # (Manual) Monocytes # (Manual) Eosinophils # (Manual) Basophils # (Manual) PT INR Fibrinogen dRVVT Confirm Interp Factor V Activity POC ABG pH POC ABG pCO2 POC ABG pO2 ABG pO2 ABG HCO3 ABG Base Excess ABG Hemoglobin Oxyhemoglobin Sodium Potassium 3.4 L Chloride Carbon Dioxide BUN 25 H Creatinine 1.5 H Glucose 103 H POC Glucose 121 H 144 H Lactic Acid Calcium Phosphorus Magnesium Direct Bilirubin AST ALT Alkaline Phosphatase Lactate Dehydrogenase Troponin T C-Reactive Protein Total Protein Albumin Prealbumin Triglycerides Cholesterol LDL Cholesterol Direct HDL Cholesterol PTH Intact Urine pH Urine WBC (Auto) Urine Creatinine Urine Total Protein Fluid Total Protein Vancomycin Trough Rheumatoid Factor Complement C4 Miscellaneous Test Crossmatch 11/15/16 11/15/16 11/16/16 21:28 23:20 11:44 WBC RBC Hgb Hct MCV MCH MCHC RDW Plt Count Lymph % (Auto) [place] % (Auto) Lymph # [place] # Baso # Seg Neutrophils % Seg Neuts % (Manual) Lymphocytes % (Manual) Monocytes % (Manual) Eosinophils % (Manual) Basophils % (Manual) Nucleated RBC % Seg Neutrophils # Seg Neutrophils # Man Lymphocytes # (Manual) Monocytes # (Manual) Eosinophils # (Manual) Basophils # (Manual) PT INR Fibrinogen dRVVT Confirm Interp Factor V Activity POC ABG pH 7.462 H POC ABG pCO2 POC ABG pO2 71 L ABG pO2 ABG HCO3 ABG Base Excess ABG Hemoglobin Oxyhemoglobin Sodium Potassium Chloride Carbon Dioxide BUN Creatinine Glucose POC Glucose 116 H 133 H Lactic Acid Calcium Phosphorus Magnesium Direct Bilirubin AST ALT Alkaline Phosphatase Lactate Dehydrogenase Troponin T C-Reactive Protein Total Protein Albumin Prealbumin Triglycerides Cholesterol LDL Cholesterol Direct HDL Cholesterol PTH Intact Urine pH Urine WBC (Auto) Urine Creatinine Urine Total Protein Fluid Total Protein Vancomycin Trough Rheumatoid Factor Complement C4 Miscellaneous Test Crossmatch 11/16/16 11/16/16 11/16/16 12:20 17:05 23:35 WBC 11.7 H RBC 2.73 L Hgb 7.6 L Hct 23.7 L MCV MCH MCHC RDW 16.6 H Plt Count Lymph % (Auto) [place] % (Auto) Lymph # [place] # Baso # Seg Neutrophils % Seg Neuts % (Manual) Lymphocytes % (Manual) Monocytes % (Manual) Eosinophils % (Manual) Basophils % (Manual) Nucleated RBC % Seg Neutrophils # Seg Neutrophils # Man Lymphocytes # (Manual) Monocytes # (Manual) Eosinophils # (Manual) Basophils # (Manual) PT INR Fibrinogen dRVVT Confirm Interp Factor V Activity POC ABG pH POC ABG pCO2 POC ABG pO2 ABG pO2 ABG HCO3 ABG Base Excess ABG Hemoglobin Oxyhemoglobin Sodium Potassium Chloride Carbon Dioxide BUN Creatinine Glucose POC Glucose 154 H 125 H Lactic Acid Calcium Phosphorus Magnesium Direct Bilirubin AST ALT Alkaline Phosphatase Lactate Dehydrogenase Troponin T C-Reactive Protein Total Protein Albumin Prealbumin Triglycerides Cholesterol LDL Cholesterol Direct HDL Cholesterol PTH Intact Urine pH Urine WBC (Auto) Urine Creatinine Urine Total Protein Fluid Total Protein Vancomycin Trough Rheumatoid Factor Complement C4 Miscellaneous Test Crossmatch 11/17/16 11/17/16 11/17/16 03:20 03:20 03:20 WBC RBC 2.55 L Hgb 7.3 L Hct 21.9 L MCV MCH MCHC RDW 16.6 H Plt Count Lymph % (Auto) [place] % (Auto) 11.5 H Lymph # [place] # 1.1 H Baso # Seg Neutrophils % Seg Neuts % (Manual) Lymphocytes % (Manual) Monocytes % (Manual) Eosinophils % (Manual) Basophils % (Manual) Nucleated RBC % Seg Neutrophils # Seg Neutrophils # Man Lymphocytes # (Manual) Monocytes # (Manual) Eosinophils # (Manual) Basophils # (Manual) PT 16.8 H INR 1.37 H Fibrinogen dRVVT Confirm Interp Factor V Activity POC ABG pH POC ABG pCO2 POC ABG pO2 ABG pO2 ABG HCO3 ABG Base Excess ABG Hemoglobin Oxyhemoglobin Sodium Potassium 3.5 L Chloride Carbon Dioxide BUN 21 H Creatinine Glucose POC Glucose Lactic Acid Calcium 7.9 L Phosphorus Magnesium Direct Bilirubin AST ALT Alkaline Phosphatase Lactate Dehydrogenase Troponin T C-Reactive Protein Total Protein Albumin Prealbumin Triglycerides Cholesterol LDL Cholesterol Direct HDL Cholesterol PTH Intact Urine pH Urine WBC (Auto) Urine Creatinine Urine Total Protein Fluid Total Protein Vancomycin Trough Rheumatoid Factor Complement C4 Miscellaneous Test Crossmatch 11/17/16 11/17/16 11/17/16 06:34 11:21 21:22 WBC RBC Hgb Hct MCV MCH MCHC RDW Plt Count Lymph % (Auto) [place] % (Auto) Lymph # [place] # Baso # Seg Neutrophils % Seg Neuts % (Manual) Lymphocytes % (Manual) Monocytes % (Manual) Eosinophils % (Manual) Basophils % (Manual) Nucleated RBC % Seg Neutrophils # Seg Neutrophils # Man Lymphocytes # (Manual) Monocytes # (Manual) Eosinophils # (Manual) Basophils # (Manual) PT INR Fibrinogen dRVVT Confirm Interp Factor V Activity POC ABG pH 7.467 H POC ABG pCO2 POC ABG pO2 73 L ABG pO2 ABG HCO3 ABG Base Excess ABG Hemoglobin Oxyhemoglobin Sodium Potassium Chloride Carbon Dioxide BUN Creatinine Glucose POC Glucose 121 H 119 H Lactic Acid Calcium Phosphorus Magnesium Direct Bilirubin AST ALT Alkaline Phosphatase Lactate Dehydrogenase Troponin T C-Reactive Protein Total Protein Albumin Prealbumin Triglycerides Cholesterol LDL Cholesterol Direct HDL Cholesterol PTH Intact Urine pH Urine WBC (Auto) Urine Creatinine Urine Total Protein Fluid Total Protein Vancomycin Trough Rheumatoid Factor Complement C4 Miscellaneous Test Crossmatch 11/18/16 11/18/16 11/19/16 12:16 17:19 00:00 WBC RBC Hgb Hct MCV MCH MCHC RDW Plt Count Lymph % (Auto) [place] % (Auto) Lymph # [place] # Baso # Seg Neutrophils % Seg Neuts % (Manual) Lymphocytes % (Manual) Monocytes % (Manual) Eosinophils % (Manual) Basophils % (Manual) Nucleated RBC % Seg Neutrophils # Seg Neutrophils # Man Lymphocytes # (Manual) Monocytes # (Manual) Eosinophils # (Manual) Basophils # (Manual) PT INR Fibrinogen dRVVT Confirm Interp Factor V Activity POC ABG pH POC ABG pCO2 POC ABG pO2 ABG pO2 ABG HCO3 ABG Base Excess ABG Hemoglobin Oxyhemoglobin Sodium Potassium Chloride Carbon Dioxide BUN Creatinine Glucose POC Glucose 124 H 162 H 139 H Lactic Acid Calcium Phosphorus Magnesium Direct Bilirubin AST ALT Alkaline Phosphatase Lactate Dehydrogenase Troponin T C-Reactive Protein Total Protein Albumin Prealbumin Triglycerides Cholesterol LDL Cholesterol Direct HDL Cholesterol PTH Intact Urine pH Urine WBC (Auto) Urine Creatinine Urine Total Protein Fluid Total Protein Vancomycin Trough Rheumatoid Factor Complement C4 Miscellaneous Test Crossmatch 11/19/16 11/19/16 11/20/16 05:00 12:43 00:40 WBC RBC Hgb Hct MCV MCH MCHC RDW Plt Count Lymph % (Auto) [place] % (Auto) Lymph # [place] # Baso # Seg Neutrophils % Seg Neuts % (Manual) Lymphocytes % (Manual) Monocytes % (Manual) Eosinophils % (Manual) Basophils % (Manual) Nucleated RBC % Seg Neutrophils # Seg Neutrophils # Man Lymphocytes # (Manual) Monocytes # (Manual) Eosinophils # (Manual) Basophils # (Manual) PT INR Fibrinogen dRVVT Confirm Interp Factor V Activity POC ABG pH POC ABG pCO2 POC ABG pO2 ABG pO2 ABG HCO3 ABG Base Excess ABG Hemoglobin Oxyhemoglobin Sodium Potassium Chloride Carbon Dioxide BUN Creatinine Glucose POC Glucose 110 H 125 H 136 H Lactic Acid Calcium Phosphorus Magnesium Direct Bilirubin AST ALT Alkaline Phosphatase Lactate Dehydrogenase Troponin T C-Reactive Protein Total Protein Albumin Prealbumin Triglycerides Cholesterol LDL Cholesterol Direct HDL Cholesterol PTH Intact Urine pH Urine WBC (Auto) Urine Creatinine Urine Total Protein Fluid Total Protein Vancomycin Trough Rheumatoid Factor Complement C4 Miscellaneous Test Crossmatch 11/20/16 11/20/16 11/20/16 05:00 05:00 05:51 WBC 13.1 H RBC 2.74 L Hgb 7.7 L Hct 23.6 L MCV MCH MCHC RDW 16.9 H Plt Count Lymph % (Auto) [place] % (Auto) 10.8 H Lymph # [place] # 1.4 H Baso # Seg Neutrophils % Seg Neuts % (Manual) Lymphocytes % (Manual) Monocytes % (Manual) Eosinophils % (Manual) Basophils % (Manual) Nucleated RBC % Seg Neutrophils # 7.9 H Seg Neutrophils # Man Lymphocytes # (Manual) Monocytes # (Manual) Eosinophils # (Manual) Basophils # (Manual) PT INR Fibrinogen dRVVT Confirm Interp Factor V Activity POC ABG pH POC ABG pCO2 POC ABG pO2 ABG pO2 ABG HCO3 ABG Base Excess ABG Hemoglobin Oxyhemoglobin Sodium Potassium Chloride Carbon Dioxide BUN 31 H Creatinine 1.8 H Glucose 129 H POC Glucose 133 H Lactic Acid Calcium Phosphorus Magnesium Direct Bilirubin AST ALT Alkaline Phosphatase Lactate Dehydrogenase Troponin T C-Reactive Protein Total Protein Albumin Prealbumin Triglycerides Cholesterol LDL Cholesterol Direct HDL Cholesterol PTH Intact Urine pH Urine WBC (Auto) Urine Creatinine Urine Total Protein Fluid Total Protein Vancomycin Trough Rheumatoid Factor Complement C4 Miscellaneous Test Crossmatch 11/20/16 11/20/16 11/21/16 12:40 18:10 01:20 WBC RBC Hgb Hct MCV MCH MCHC RDW Plt Count Lymph % (Auto) [place] % (Auto) Lymph # [place] # Baso # Seg Neutrophils % Seg Neuts % (Manual) Lymphocytes % (Manual) Monocytes % (Manual) Eosinophils % (Manual) Basophils % (Manual) Nucleated RBC % Seg Neutrophils # Seg Neutrophils # Man Lymphocytes # (Manual) Monocytes # (Manual) Eosinophils # (Manual) Basophils # (Manual) PT INR Fibrinogen dRVVT Confirm Interp Factor V Activity POC ABG pH POC ABG pCO2 POC ABG pO2 ABG pO2 ABG HCO3 ABG Base Excess ABG Hemoglobin Oxyhemoglobin Sodium Potassium Chloride Carbon Dioxide BUN Creatinine Glucose POC Glucose 134 H 138 H 136 H Lactic Acid Calcium Phosphorus Magnesium Direct Bilirubin AST ALT Alkaline Phosphatase Lactate Dehydrogenase Troponin T C-Reactive Protein Total Protein Albumin Prealbumin Triglycerides Cholesterol LDL Cholesterol Direct HDL Cholesterol PTH Intact Urine pH Urine WBC (Auto) Urine Creatinine Urine Total Protein Fluid Total Protein Vancomycin Trough Rheumatoid Factor Complement C4 Miscellaneous Test Crossmatch 11/21/16 11/21/16 11/21/16 07:04 07:45 07:45 WBC 22.0 H RBC 2.91 L Hgb 8.2 L Hct 25.4 L MCV MCH MCHC RDW 17.1 H Plt Count Lymph % (Auto) [place] % (Auto) Lymph # [place] # Baso # Seg Neutrophils % Seg Neuts % (Manual) Lymphocytes % (Manual) 8.0 L Monocytes % (Manual) Eosinophils % (Manual) Basophils % (Manual) Nucleated RBC % Seg Neutrophils # Seg Neutrophils # Man 14.7 H Lymphocytes # (Manual) Monocytes # (Manual) 1.1 H Eosinophils # (Manual) Basophils # (Manual) PT INR Fibrinogen dRVVT Confirm Interp Factor V Activity POC ABG pH POC ABG pCO2 POC ABG pO2 ABG pO2 ABG HCO3 ABG Base Excess ABG Hemoglobin Oxyhemoglobin Sodium Potassium Chloride Carbon Dioxide BUN 42 H Creatinine 2.0 H Glucose POC Glucose 108 H Lactic Acid Calcium Phosphorus Magnesium Direct Bilirubin AST ALT Alkaline Phosphatase Lactate Dehydrogenase Troponin T C-Reactive Protein Total Protein Albumin Prealbumin Triglycerides Cholesterol LDL Cholesterol Direct HDL Cholesterol PTH Intact Urine pH Urine WBC (Auto) Urine Creatinine Urine Total Protein Fluid Total Protein Vancomycin Trough Rheumatoid Factor Complement C4 Miscellaneous Test Crossmatch 11/21/16 11/21/16 11/21/16 08:38 10:09 11:20 WBC RBC Hgb Hct MCV MCH MCHC RDW Plt Count Lymph % (Auto) [place] % (Auto) Lymph # [place] # Baso # Seg Neutrophils % Seg Neuts % (Manual) Lymphocytes % (Manual) Monocytes % (Manual) Eosinophils % (Manual) Basophils % (Manual) Nucleated RBC % Seg Neutrophils # Seg Neutrophils # Man Lymphocytes # (Manual) Monocytes # (Manual) Eosinophils # (Manual) Basophils # (Manual) PT INR Fibrinogen dRVVT Confirm Interp Factor V Activity POC ABG pH 7.346 L POC ABG pCO2 34.4 L POC ABG pO2 314 H ABG pO2 ABG HCO3 ABG Base Excess ABG Hemoglobin Oxyhemoglobin Sodium Potassium Chloride Carbon Dioxide BUN Creatinine Glucose POC Glucose 195 H 153 H Lactic Acid Calcium Phosphorus Magnesium Direct Bilirubin AST ALT Alkaline Phosphatase Lactate Dehydrogenase Troponin T C-Reactive Protein Total Protein Albumin Prealbumin Triglycerides Cholesterol LDL Cholesterol Direct HDL Cholesterol PTH Intact Urine pH Urine WBC (Auto) Urine Creatinine Urine Total Protein Fluid Total Protein Vancomycin Trough Rheumatoid Factor Complement C4 Miscellaneous Test Crossmatch 11/21/16 11/22/16 11/22/16 23:37 04:48 05:00 WBC 29.7 H RBC 2.73 L Hgb 7.5 L Hct 24.2 L MCV MCH 27 L MCHC RDW 17.4 H Plt Count Lymph % (Auto) [place] % (Auto) Lymph # [place] # Baso # Seg Neutrophils % Seg Neuts % (Manual) Lymphocytes % (Manual) 7.0 L Monocytes % (Manual) Eosinophils % (Manual) Basophils % (Manual) Nucleated RBC % Seg Neutrophils # Seg Neutrophils # Man 15.4 H Lymphocytes # (Manual) Monocytes # (Manual) Eosinophils # (Manual) Basophils # (Manual) PT INR Fibrinogen dRVVT Confirm Interp Factor V Activity POC ABG pH POC ABG pCO2 24.6 L POC ABG pO2 189 H ABG pO2 ABG HCO3 ABG Base Excess ABG Hemoglobin Oxyhemoglobin Sodium Potassium Chloride Carbon Dioxide BUN Creatinine Glucose POC Glucose 65 L Lactic Acid Calcium Phosphorus Magnesium Direct Bilirubin AST ALT Alkaline Phosphatase Lactate Dehydrogenase Troponin T C-Reactive Protein Total Protein Albumin Prealbumin Triglycerides Cholesterol LDL Cholesterol Direct HDL Cholesterol PTH Intact Urine pH Urine WBC (Auto) Urine Creatinine Urine Total Protein Fluid Total Protein Vancomycin Trough Rheumatoid Factor Complement C4 Miscellaneous Test Crossmatch 11/22/16 11/23/16 11/23/16 05:00 03:44 04:06 WBC RBC 2.52 L Hgb 7.2 L Hct 21.5 L MCV MCH MCHC RDW 17.1 H Plt Count Lymph % (Auto) [place] % (Auto) 12.4 H Lymph # [place] # 1.4 H Baso # Seg Neutrophils % Seg Neuts % (Manual) Lymphocytes % (Manual) Monocytes % (Manual) Eosinophils % (Manual) Basophils % (Manual) Nucleated RBC % Seg Neutrophils # Seg Neutrophils # Man Lymphocytes # (Manual) Monocytes # (Manual) Eosinophils # (Manual) Basophils # (Manual) PT INR Fibrinogen dRVVT Confirm Interp Factor V Activity POC ABG pH 7.493 H POC ABG pCO2 29.5 L POC ABG pO2 49 L ABG pO2 ABG HCO3 ABG Base Excess ABG Hemoglobin Oxyhemoglobin Sodium 134 L Potassium Chloride 95.9 L Carbon Dioxide 14 L D BUN 51 H Creatinine 2.6 H Glucose POC Glucose Lactic Acid Calcium Phosphorus Magnesium Direct Bilirubin AST ALT Alkaline Phosphatase Lactate Dehydrogenase Troponin T C-Reactive Protein Total Protein Albumin Prealbumin Triglycerides Cholesterol LDL Cholesterol Direct HDL Cholesterol PTH Intact Urine pH Urine WBC (Auto) Urine Creatinine Urine Total Protein Fluid Total Protein Vancomycin Trough Rheumatoid Factor Complement C4 Miscellaneous Test Crossmatch 11/23/16 11/23/16 11/24/16 04:06 11:29 06:39 WBC RBC Hgb Hct MCV MCH MCHC RDW Plt Count Lymph % (Auto) [place] % (Auto) Lymph # [place] # Baso # Seg Neutrophils % Seg Neuts % (Manual) Lymphocytes % (Manual) Monocytes % (Manual) Eosinophils % (Manual) Basophils % (Manual) Nucleated RBC % Seg Neutrophils # Seg Neutrophils # Man Lymphocytes # (Manual) Monocytes # (Manual) Eosinophils # (Manual) Basophils # (Manual) PT INR Fibrinogen dRVVT Confirm Interp Factor V Activity POC ABG pH POC ABG pCO2 POC ABG pO2 ABG pO2 ABG HCO3 ABG Base Excess ABG Hemoglobin Oxyhemoglobin Sodium 136 L Potassium Chloride 95.2 L Carbon Dioxide BUN 60 H Creatinine 2.9 H Glucose POC Glucose 69 L 305 H Lactic Acid Calcium Phosphorus Magnesium 1.60 L Direct Bilirubin AST ALT Alkaline Phosphatase Lactate Dehydrogenase Troponin T C-Reactive Protein Total Protein Albumin Prealbumin Triglycerides Cholesterol LDL Cholesterol Direct HDL Cholesterol PTH Intact Urine pH Urine WBC (Auto) Urine Creatinine Urine Total Protein Fluid Total Protein Vancomycin Trough Rheumatoid Factor Complement C4 Miscellaneous Test Crossmatch 11/24/16 11/24/16 11/24/16 06:43 08:08 08:08 WBC 11.2 H RBC 2.47 L Hgb 6.8 L Hct 20.6 L MCV MCH MCHC RDW 17.0 H Plt Count Lymph % (Auto) [place] % (Auto) 10.3 H Lymph # [place] # 1.2 H Baso # Seg Neutrophils % Seg Neuts % (Manual) Lymphocytes % (Manual) Monocytes % (Manual) Eosinophils % (Manual) Basophils % (Manual) Nucleated RBC % Seg Neutrophils # Seg Neutrophils # Man Lymphocytes # (Manual) Monocytes # (Manual) Eosinophils # (Manual) Basophils # (Manual) PT INR Fibrinogen dRVVT Confirm Interp Factor V Activity POC ABG pH POC ABG pCO2 POC ABG pO2 ABG pO2 ABG HCO3 ABG Base Excess ABG Hemoglobin Oxyhemoglobin Sodium 135 L Potassium Chloride 96.3 L Carbon Dioxide BUN 61 H Creatinine 3.1 H Glucose POC Glucose 62 L Lactic Acid Calcium 8.2 L Phosphorus Magnesium Direct Bilirubin AST ALT Alkaline Phosphatase Lactate Dehydrogenase Troponin T C-Reactive Protein Total Protein Albumin Prealbumin Triglycerides Cholesterol LDL Cholesterol Direct HDL Cholesterol PTH Intact Urine pH Urine WBC (Auto) Urine Creatinine Urine Total Protein Fluid Total Protein Vancomycin Trough Rheumatoid Factor Complement C4 Miscellaneous Test Crossmatch 11/24/16 11/24/16 11/24/16 08:34 11:20 12:41 WBC RBC Hgb Hct MCV MCH MCHC RDW Plt Count Lymph % (Auto) [place] % (Auto) Lymph # [place] # Baso # Seg Neutrophils % Seg Neuts % (Manual) Lymphocytes % (Manual) Monocytes % (Manual) Eosinophils % (Manual) Basophils % (Manual) Nucleated RBC % Seg Neutrophils # Seg Neutrophils # Man Lymphocytes # (Manual) Monocytes # (Manual) Eosinophils # (Manual) Basophils # (Manual) PT INR Fibrinogen dRVVT Confirm Interp Factor V Activity POC ABG pH POC ABG pCO2 POC ABG pO2 ABG pO2 ABG HCO3 ABG Base Excess ABG Hemoglobin Oxyhemoglobin Sodium Potassium Chloride Carbon Dioxide BUN Creatinine Glucose POC Glucose 108 H Lactic Acid Calcium Phosphorus Magnesium 1.60 L Direct Bilirubin AST ALT Alkaline Phosphatase Lactate Dehydrogenase Troponin T C-Reactive Protein Total Protein Albumin Prealbumin Triglycerides Cholesterol LDL Cholesterol Direct HDL Cholesterol PTH Intact Urine pH Urine WBC (Auto) Urine Creatinine Urine Total Protein Fluid Total Protein Vancomycin Trough Rheumatoid Factor Complement C4 Miscellaneous Test Crossmatch See Detail 11/25/16 11/25/16 11/25/16 00:03 04:42 04:42 WBC RBC 3.03 L Hgb 8.6 L Hct 25.3 L MCV MCH MCHC RDW 16.2 H Plt Count Lymph % (Auto) [place] % (Auto) 8.1 H Lymph # [place] # Baso # Seg Neutrophils % 71.3 H Seg Neuts % (Manual) Lymphocytes % (Manual) Monocytes % (Manual) Eosinophils % (Manual) Basophils % (Manual) Nucleated RBC % Seg Neutrophils # Seg Neutrophils # Man Lymphocytes # (Manual) Monocytes # (Manual) Eosinophils # (Manual) Basophils # (Manual) PT INR Fibrinogen dRVVT Confirm Interp Factor V Activity POC ABG pH POC ABG pCO2 POC ABG pO2 ABG pO2 ABG HCO3 ABG Base Excess ABG Hemoglobin Oxyhemoglobin Sodium Potassium Chloride Carbon Dioxide BUN 61 H Creatinine 3.0 H Glucose 102 H POC Glucose 113 H Lactic Acid Calcium 8.2 L Phosphorus Magnesium Direct Bilirubin AST ALT Alkaline Phosphatase 142 H Lactate Dehydrogenase Troponin T C-Reactive Protein Total Protein 5.7 L Albumin 1.5 L Prealbumin Triglycerides Cholesterol LDL Cholesterol Direct HDL Cholesterol PTH Intact Urine pH Urine WBC (Auto) Urine Creatinine Urine Total Protein Fluid Total Protein Vancomycin Trough Rheumatoid Factor Complement C4 Miscellaneous Test Crossmatch 11/25/16 11/25/16 11/25/16 05:12 11:31 14:12 WBC RBC Hgb Hct MCV MCH MCHC RDW Plt Count Lymph % (Auto) [place] % (Auto) Lymph # [place] # Baso # Seg Neutrophils % Seg Neuts % (Manual) Lymphocytes % (Manual) Monocytes % (Manual) Eosinophils % (Manual) Basophils % (Manual) Nucleated RBC % Seg Neutrophils # Seg Neutrophils # Man Lymphocytes # (Manual) Monocytes # (Manual) Eosinophils # (Manual) Basophils # (Manual) PT INR Fibrinogen dRVVT Confirm Interp Factor V Activity POC ABG pH 7.487 H POC ABG pCO2 POC ABG pO2 153 H ABG pO2 ABG HCO3 ABG Base Excess ABG Hemoglobin Oxyhemoglobin Sodium Potassium Chloride Carbon Dioxide BUN Creatinine Glucose POC Glucose 131 H 140 H Lactic Acid Calcium Phosphorus Magnesium Direct Bilirubin AST ALT Alkaline Phosphatase Lactate Dehydrogenase Troponin T C-Reactive Protein Total Protein Albumin Prealbumin Triglycerides Cholesterol LDL Cholesterol Direct HDL Cholesterol PTH Intact Urine pH Urine WBC (Auto) Urine Creatinine Urine Total Protein Fluid Total Protein Vancomycin Trough Rheumatoid Factor Complement C4 Miscellaneous Test Crossmatch 11/25/16 11/26/16 11/26/16 17:23 00:09 05:13 WBC RBC 2.94 L Hgb 8.4 L Hct 24.6 L MCV MCH MCHC RDW 16.4 H Plt Count Lymph % (Auto) [place] % (Auto) 12.3 H Lymph # [place] # 1.1 H Baso # Seg Neutrophils % Seg Neuts % (Manual) Lymphocytes % (Manual) Monocytes % (Manual) Eosinophils % (Manual) Basophils % (Manual) Nucleated RBC % Seg Neutrophils # Seg Neutrophils # Man Lymphocytes # (Manual) Monocytes # (Manual) Eosinophils # (Manual) Basophils # (Manual) PT INR Fibrinogen dRVVT Confirm Interp Factor V Activity POC ABG pH POC ABG pCO2 POC ABG pO2 ABG pO2 ABG HCO3 ABG Base Excess ABG Hemoglobin Oxyhemoglobin Sodium Potassium Chloride Carbon Dioxide BUN Creatinine Glucose POC Glucose 146 H 112 H Lactic Acid Calcium Phosphorus Magnesium Direct Bilirubin AST ALT Alkaline Phosphatase Lactate Dehydrogenase Troponin T C-Reactive Protein Total Protein Albumin Prealbumin Triglycerides Cholesterol LDL Cholesterol Direct HDL Cholesterol PTH Intact Urine pH Urine WBC (Auto) Urine Creatinine Urine Total Protein Fluid Total Protein Vancomycin Trough Rheumatoid Factor Complement C4 Miscellaneous Test Crossmatch 11/26/16 11/26/16 11/26/16 05:13 05:28 11:53 WBC RBC Hgb Hct MCV MCH MCHC RDW Plt Count Lymph % (Auto) [place] % (Auto) Lymph # [place] # Baso # Seg Neutrophils % Seg Neuts % (Manual) Lymphocytes % (Manual) Monocytes % (Manual) Eosinophils % (Manual) Basophils % (Manual) Nucleated RBC % Seg Neutrophils # Seg Neutrophils # Man Lymphocytes # (Manual) Monocytes # (Manual) Eosinophils # (Manual) Basophils # (Manual) PT INR Fibrinogen dRVVT Confirm Interp Factor V Activity POC ABG pH POC ABG pCO2 POC ABG pO2 ABG pO2 ABG HCO3 ABG Base Excess ABG Hemoglobin Oxyhemoglobin Sodium Potassium Chloride 97.8 L Carbon Dioxide BUN 37 H Creatinine 2.0 H Glucose 109 H POC Glucose 117 H 111 H Lactic Acid Calcium 7.9 L Phosphorus 1.80 L D Magnesium Direct Bilirubin AST ALT Alkaline Phosphatase Lactate Dehydrogenase Troponin T C-Reactive Protein Total Protein Albumin Prealbumin Triglycerides Cholesterol LDL Cholesterol Direct HDL Cholesterol PTH Intact Urine pH Urine WBC (Auto) Urine Creatinine Urine Total Protein Fluid Total Protein Vancomycin Trough Rheumatoid Factor Complement C4 Miscellaneous Test Crossmatch 11/26/16 11/27/16 11/27/16 17:14 04:50 06:02 WBC RBC Hgb Hct MCV MCH MCHC RDW Plt Count Lymph % (Auto) [place] % (Auto) Lymph # [place] # Baso # Seg Neutrophils % Seg Neuts % (Manual) Lymphocytes % (Manual) Monocytes % (Manual) Eosinophils % (Manual) Basophils % (Manual) Nucleated RBC % Seg Neutrophils # Seg Neutrophils # Man Lymphocytes # (Manual) Monocytes # (Manual) Eosinophils # (Manual) Basophils # (Manual) PT INR Fibrinogen dRVVT Confirm Interp Factor V Activity POC ABG pH POC ABG pCO2 POC ABG pO2 ABG pO2 75.2 L ABG HCO3 26.4 H ABG Base Excess ABG Hemoglobin 7.6 L Oxyhemoglobin 94.8 L Sodium Potassium Chloride Carbon Dioxide BUN 49 H Creatinine 2.3 H Glucose POC Glucose 115 H Lactic Acid Calcium Phosphorus 1.50 L Magnesium Direct Bilirubin AST ALT Alkaline Phosphatase Lactate Dehydrogenase Troponin T C-Reactive Protein Total Protein Albumin Prealbumin Triglycerides Cholesterol LDL Cholesterol Direct HDL Cholesterol PTH Intact Urine pH Urine WBC (Auto) Urine Creatinine Urine Total Protein Fluid Total Protein Vancomycin Trough Rheumatoid Factor Complement C4 Miscellaneous Test Crossmatch 11/27/16 11/27/16 11/27/16 06:02 11:25 17:25 WBC 11.6 H RBC 2.75 L Hgb 7.6 L Hct 23.4 L MCV MCH MCHC RDW 16.5 H Plt Count Lymph % (Auto) [place] % (Auto) Lymph # [place] # Baso # Seg Neutrophils % Seg Neuts % (Manual) Lymphocytes % (Manual) Monocytes % (Manual) Eosinophils % (Manual) Basophils % (Manual) Nucleated RBC % Seg Neutrophils # Seg Neutrophils # Man Lymphocytes # (Manual) Monocytes # (Manual) Eosinophils # (Manual) Basophils # (Manual) PT INR Fibrinogen dRVVT Confirm Interp Factor V Activity POC ABG pH POC ABG pCO2 POC ABG pO2 ABG pO2 ABG HCO3 ABG Base Excess ABG Hemoglobin Oxyhemoglobin Sodium Potassium Chloride Carbon Dioxide BUN Creatinine Glucose POC Glucose 114 H 126 H Lactic Acid Calcium Phosphorus Magnesium Direct Bilirubin AST ALT Alkaline Phosphatase Lactate Dehydrogenase Troponin T C-Reactive Protein Total Protein Albumin Prealbumin Triglycerides Cholesterol LDL Cholesterol Direct HDL Cholesterol PTH Intact Urine pH Urine WBC (Auto) Urine Creatinine Urine Total Protein Fluid Total Protein Vancomycin Trough Rheumatoid Factor Complement C4 Miscellaneous Test Crossmatch 11/28/16 11/28/16 11/28/16 04:45 05:33 05:44 WBC RBC Hgb Hct MCV MCH MCHC RDW Plt Count Lymph % (Auto) [place] % (Auto) Lymph # [place] # Baso # Seg Neutrophils % Seg Neuts % (Manual) Lymphocytes % (Manual) Monocytes % (Manual) Eosinophils % (Manual) Basophils % (Manual) Nucleated RBC % Seg Neutrophils # Seg Neutrophils # Man Lymphocytes # (Manual) Monocytes # (Manual) Eosinophils # (Manual) Basophils # (Manual) PT INR Fibrinogen dRVVT Confirm Interp Factor V Activity POC ABG pH POC ABG pCO2 POC ABG pO2 ABG pO2 99.3 H ABG HCO3 ABG Base Excess ABG Hemoglobin 8.3 L Oxyhemoglobin Sodium Potassium Chloride Carbon Dioxide BUN 63 H Creatinine 2.4 H Glucose 102 H POC Glucose 108 H Lactic Acid Calcium Phosphorus 1.80 L Magnesium Direct Bilirubin AST ALT Alkaline Phosphatase Lactate Dehydrogenase Troponin T C-Reactive Protein Total Protein Albumin Prealbumin Triglycerides Cholesterol LDL Cholesterol Direct HDL Cholesterol PTH Intact Urine pH Urine WBC (Auto) Urine Creatinine Urine Total Protein Fluid Total Protein Vancomycin Trough Rheumatoid Factor Complement C4 Miscellaneous Test Crossmatch 11/28/16 11/28/16 11/28/16 12:31 16:09 23:46 WBC RBC Hgb Hct MCV MCH MCHC RDW Plt Count Lymph % (Auto) [place] % (Auto) Lymph # [place] # Baso # Seg Neutrophils % Seg Neuts % (Manual) Lymphocytes % (Manual) Monocytes % (Manual) Eosinophils % (Manual) Basophils % (Manual) Nucleated RBC % Seg Neutrophils # Seg Neutrophils # Man Lymphocytes # (Manual) Monocytes # (Manual) Eosinophils # (Manual) Basophils # (Manual) PT INR Fibrinogen dRVVT Confirm Interp Factor V Activity POC ABG pH POC ABG pCO2 POC ABG pO2 ABG pO2 ABG HCO3 ABG Base Excess ABG Hemoglobin Oxyhemoglobin Sodium Potassium Chloride Carbon Dioxide BUN Creatinine Glucose POC Glucose 126 H 111 H 119 H Lactic Acid Calcium Phosphorus Magnesium Direct Bilirubin AST ALT Alkaline Phosphatase Lactate Dehydrogenase Troponin T C-Reactive Protein Total Protein Albumin Prealbumin Triglycerides Cholesterol LDL Cholesterol Direct HDL Cholesterol PTH Intact Urine pH Urine WBC (Auto) Urine Creatinine Urine Total Protein Fluid Total Protein Vancomycin Trough Rheumatoid Factor Complement C4 Miscellaneous Test Crossmatch 11/29/16 11/29/16 11/29/16 03:33 04:52 05:10 WBC RBC Hgb Hct MCV MCH MCHC RDW Plt Count Lymph % (Auto) [place] % (Auto) Lymph # [place] # Baso # Seg Neutrophils % Seg Neuts % (Manual) Lymphocytes % (Manual) Monocytes % (Manual) Eosinophils % (Manual) Basophils % (Manual) Nucleated RBC % Seg Neutrophils # Seg Neutrophils # Man Lymphocytes # (Manual) Monocytes # (Manual) Eosinophils # (Manual) Basophils # (Manual) PT INR Fibrinogen dRVVT Confirm Interp Factor V Activity POC ABG pH POC ABG pCO2 POC ABG pO2 ABG pO2 ABG HCO3 ABG Base Excess ABG Hemoglobin 7.0 L Oxyhemoglobin 94.9 L Sodium Potassium Chloride Carbon Dioxide BUN 73 H Creatinine 2.7 H Glucose POC Glucose 108 H Lactic Acid Calcium Phosphorus Magnesium Direct Bilirubin AST ALT Alkaline Phosphatase Lactate Dehydrogenase Troponin T C-Reactive Protein Total Protein Albumin Prealbumin Triglycerides Cholesterol LDL Cholesterol Direct HDL Cholesterol PTH Intact Urine pH Urine WBC (Auto) Urine Creatinine Urine Total Protein Fluid Total Protein Vancomycin Trough Rheumatoid Factor Complement C4 Miscellaneous Test Crossmatch 11/29/16 11/29/16 11/29/16 12:16 18:05 23:46 WBC RBC Hgb Hct MCV MCH MCHC RDW Plt Count Lymph % (Auto) [place] % (Auto) Lymph # [place] # Baso # Seg Neutrophils % Seg Neuts % (Manual) Lymphocytes % (Manual) Monocytes % (Manual) Eosinophils % (Manual) Basophils % (Manual) Nucleated RBC % Seg Neutrophils # Seg Neutrophils # Man Lymphocytes # (Manual) Monocytes # (Manual) Eosinophils # (Manual) Basophils # (Manual) PT INR Fibrinogen dRVVT Confirm Interp Factor V Activity POC ABG pH POC ABG pCO2 POC ABG pO2 ABG pO2 ABG HCO3 ABG Base Excess ABG Hemoglobin Oxyhemoglobin Sodium Potassium Chloride Carbon Dioxide BUN Creatinine Glucose POC Glucose 133 H 146 H 141 H Lactic Acid Calcium Phosphorus Magnesium Direct Bilirubin AST ALT Alkaline Phosphatase Lactate Dehydrogenase Troponin T C-Reactive Protein Total Protein Albumin Prealbumin Triglycerides Cholesterol LDL Cholesterol Direct HDL Cholesterol PTH Intact Urine pH Urine WBC (Auto) Urine Creatinine Urine Total Protein Fluid Total Protein Vancomycin Trough Rheumatoid Factor Complement C4 Miscellaneous Test Crossmatch 11/30/16 11/30/16 11/30/16 04:17 04:17 04:32 WBC 12.0 H RBC 2.80 L Hgb 7.8 L Hct 23.6 L MCV MCH MCHC RDW 16.6 H Plt Count Lymph % (Auto) [place] % (Auto) 11.3 H Lymph # [place] # 1.4 H Baso # Seg Neutrophils % Seg Neuts % (Manual) Lymphocytes % (Manual) Monocytes % (Manual) Eosinophils % (Manual) Basophils % (Manual) Nucleated RBC % Seg Neutrophils # 8.2 H Seg Neutrophils # Man Lymphocytes # (Manual) Monocytes # (Manual) Eosinophils # (Manual) Basophils # (Manual) PT INR Fibrinogen dRVVT Confirm Interp Factor V Activity POC ABG pH POC ABG pCO2 POC ABG pO2 ABG pO2 ABG HCO3 ABG Base Excess ABG Hemoglobin Oxyhemoglobin Sodium 169 H* D Potassium 5.1 H Chloride 121.5 H Carbon Dioxide BUN 34 H Creatinine 1.3 H D Glucose 133 H POC Glucose 131 H Lactic Acid Calcium 10.3 H Phosphorus Magnesium Direct Bilirubin AST ALT Alkaline Phosphatase Lactate Dehydrogenase Troponin T C-Reactive Protein Total Protein Albumin Prealbumin Triglycerides Cholesterol LDL Cholesterol Direct HDL Cholesterol PTH Intact Urine pH Urine WBC (Auto) Urine Creatinine Urine Total Protein Fluid Total Protein Vancomycin Trough Rheumatoid Factor Complement C4 Miscellaneous Test Crossmatch 11/30/16 11/30/16 11/30/16 05:45 11:10 17:26 WBC RBC Hgb Hct MCV MCH MCHC RDW Plt Count Lymph % (Auto) [place] % (Auto) Lymph # [place] # Baso # Seg Neutrophils % Seg Neuts % (Manual) Lymphocytes % (Manual) Monocytes % (Manual) Eosinophils % (Manual) Basophils % (Manual) Nucleated RBC % Seg Neutrophils # Seg Neutrophils # Man Lymphocytes # (Manual) Monocytes # (Manual) Eosinophils # (Manual) Basophils # (Manual) PT INR Fibrinogen dRVVT Confirm Interp Factor V Activity POC ABG pH POC ABG pCO2 POC ABG pO2 ABG pO2 ABG HCO3 ABG Base Excess ABG Hemoglobin Oxyhemoglobin Sodium Potassium Chloride Carbon Dioxide BUN 45 H Creatinine 1.6 H Glucose 131 H POC Glucose 146 H 134 H Lactic Acid Calcium Phosphorus Magnesium Direct Bilirubin AST ALT Alkaline Phosphatase Lactate Dehydrogenase Troponin T C-Reactive Protein Total Protein Albumin Prealbumin Triglycerides Cholesterol LDL Cholesterol Direct HDL Cholesterol PTH Intact Urine pH Urine WBC (Auto) Urine Creatinine Urine Total Protein Fluid Total Protein Vancomycin Trough Rheumatoid Factor Complement C4 Miscellaneous Test Crossmatch 11/30/16 12/01/16 12/01/16 23:35 00:06 03:35 WBC RBC Hgb Hct MCV MCH MCHC RDW Plt Count Lymph % (Auto) [place] % (Auto) Lymph # [place] # Baso # Seg Neutrophils % Seg Neuts % (Manual) Lymphocytes % (Manual) Monocytes % (Manual) Eosinophils % (Manual) Basophils % (Manual) Nucleated RBC % Seg Neutrophils # Seg Neutrophils # Man Lymphocytes # (Manual) Monocytes # (Manual) Eosinophils # (Manual) Basophils # (Manual) PT INR Fibrinogen dRVVT Confirm Interp Factor V Activity POC ABG pH POC ABG pCO2 POC ABG pO2 ABG pO2 ABG HCO3 ABG Base Excess ABG Hemoglobin 6.9 L Oxyhemoglobin Sodium Potassium Chloride Carbon Dioxide BUN 58 H Creatinine 1.8 H Glucose 146 H POC Glucose 151 H Lactic Acid Calcium Phosphorus Magnesium Direct Bilirubin AST ALT Alkaline Phosphatase Lactate Dehydrogenase Troponin T C-Reactive Protein Total Protein Albumin Prealbumin Triglycerides Cholesterol LDL Cholesterol Direct HDL Cholesterol PTH Intact Urine pH Urine WBC (Auto) Urine Creatinine Urine Total Protein Fluid Total Protein Vancomycin Trough Rheumatoid Factor Complement C4 Miscellaneous Test Crossmatch 12/01/16 12/01/16 12/01/16 03:35 05:47 11:52 WBC 12.3 H RBC 2.82 L Hgb 7.8 L Hct 23.7 L MCV MCH MCHC RDW 16.7 H Plt Count Lymph % (Auto) [place] % (Auto) 9.8 H Lymph # [place] # 1.2 H Baso # Seg Neutrophils % Seg Neuts % (Manual) Lymphocytes % (Manual) Monocytes % (Manual) Eosinophils % (Manual) Basophils % (Manual) Nucleated RBC % Seg Neutrophils # 8.4 H Seg Neutrophils # Man Lymphocytes # (Manual) Monocytes # (Manual) Eosinophils # (Manual) Basophils # (Manual) PT INR Fibrinogen dRVVT Confirm Interp Factor V Activity POC ABG pH POC ABG pCO2 POC ABG pO2 ABG pO2 ABG HCO3 ABG Base Excess ABG Hemoglobin Oxyhemoglobin Sodium Potassium Chloride Carbon Dioxide BUN Creatinine Glucose POC Glucose 152 H 152 H Lactic Acid Calcium Phosphorus Magnesium Direct Bilirubin AST ALT Alkaline Phosphatase Lactate Dehydrogenase Troponin T C-Reactive Protein Total Protein Albumin Prealbumin Triglycerides Cholesterol LDL Cholesterol Direct HDL Cholesterol PTH Intact Urine pH Urine WBC (Auto) Urine Creatinine Urine Total Protein Fluid Total Protein Vancomycin Trough Rheumatoid Factor Complement C4 Miscellaneous Test Crossmatch 12/01/16 12/01/16 12/02/16 17:40 23:41 05:00 WBC RBC Hgb Hct MCV MCH MCHC RDW Plt Count Lymph % (Auto) [place] % (Auto) Lymph # [place] # Baso # Seg Neutrophils % Seg Neuts % (Manual) Lymphocytes % (Manual) Monocytes % (Manual) Eosinophils % (Manual) Basophils % (Manual) Nucleated RBC % Seg Neutrophils # Seg Neutrophils # Man Lymphocytes # (Manual) Monocytes # (Manual) Eosinophils # (Manual) Basophils # (Manual) PT INR Fibrinogen dRVVT Confirm Interp Factor V Activity POC ABG pH POC ABG pCO2 POC ABG pO2 ABG pO2 ABG HCO3 ABG Base Excess ABG Hemoglobin Oxyhemoglobin Sodium Potassium Chloride Carbon Dioxide BUN 45 H Creatinine Glucose 115 H POC Glucose 140 H 144 H Lactic Acid Calcium Phosphorus Magnesium Direct Bilirubin AST ALT Alkaline Phosphatase Lactate Dehydrogenase Troponin T C-Reactive Protein Total Protein Albumin Prealbumin Triglycerides Cholesterol LDL Cholesterol Direct HDL Cholesterol PTH Intact Urine pH Urine WBC (Auto) Urine Creatinine Urine Total Protein Fluid Total Protein Vancomycin Trough Rheumatoid Factor Complement C4 Miscellaneous Test Crossmatch 12/02/16 12/02/16 12/02/16 05:31 11:20 17:38 WBC RBC Hgb Hct MCV MCH MCHC RDW Plt Count Lymph % (Auto) [place] % (Auto) Lymph # [place] # Baso # Seg Neutrophils % Seg Neuts % (Manual) Lymphocytes % (Manual) Monocytes % (Manual) Eosinophils % (Manual) Basophils % (Manual) Nucleated RBC % Seg Neutrophils # Seg Neutrophils # Man Lymphocytes # (Manual) Monocytes # (Manual) Eosinophils # (Manual) Basophils # (Manual) PT INR Fibrinogen dRVVT Confirm Interp Factor V Activity POC ABG pH POC ABG pCO2 POC ABG pO2 ABG pO2 ABG HCO3 ABG Base Excess ABG Hemoglobin Oxyhemoglobin Sodium Potassium Chloride Carbon Dioxide BUN Creatinine Glucose POC Glucose 136 H 177 H 139 H Lactic Acid Calcium Phosphorus Magnesium Direct Bilirubin AST ALT Alkaline Phosphatase Lactate Dehydrogenase Troponin T C-Reactive Protein Total Protein Albumin Prealbumin Triglycerides Cholesterol LDL Cholesterol Direct HDL Cholesterol PTH Intact Urine pH Urine WBC (Auto) Urine Creatinine Urine Total Protein Fluid Total Protein Vancomycin Trough Rheumatoid Factor Complement C4 Miscellaneous Test Crossmatch 12/02/16 12/03/16 12/03/16 23:43 04:00 04:00 WBC 20.4 H RBC 2.74 L Hgb 7.4 L Hct 23.6 L MCV MCH 27 L MCHC RDW 17.1 H Plt Count Lymph % (Auto) [place] % (Auto) Lymph # [place] # Baso # Seg Neutrophils % Seg Neuts % (Manual) 31.0 L Lymphocytes % (Manual) Monocytes % (Manual) Eosinophils % (Manual) Basophils % (Manual) Nucleated RBC % Seg Neutrophils # Seg Neutrophils # Man Lymphocytes # (Manual) Monocytes # (Manual) Eosinophils # (Manual) Basophils # (Manual) PT INR Fibrinogen dRVVT Confirm Interp Factor V Activity POC ABG pH POC ABG pCO2 POC ABG pO2 ABG pO2 ABG HCO3 ABG Base Excess ABG Hemoglobin Oxyhemoglobin Sodium Potassium Chloride Carbon Dioxide BUN 61 H Creatinine 1.6 H Glucose 119 H POC Glucose 158 H Lactic Acid Calcium Phosphorus Magnesium Direct Bilirubin AST ALT Alkaline Phosphatase Lactate Dehydrogenase Troponin T C-Reactive Protein Total Protein Albumin Prealbumin Triglycerides Cholesterol LDL Cholesterol Direct HDL Cholesterol PTH Intact Urine pH Urine WBC (Auto) Urine Creatinine Urine Total Protein Fluid Total Protein Vancomycin Trough Rheumatoid Factor Complement C4 Miscellaneous Test Crossmatch 12/03/16 12/03/16 12/03/16 05:02 12:11 18:16 WBC RBC Hgb Hct MCV MCH MCHC RDW Plt Count Lymph % (Auto) [place] % (Auto) Lymph # [place] # Baso # Seg Neutrophils % Seg Neuts % (Manual) Lymphocytes % (Manual) Monocytes % (Manual) Eosinophils % (Manual) Basophils % (Manual) Nucleated RBC % Seg Neutrophils # Seg Neutrophils # Man Lymphocytes # (Manual) Monocytes # (Manual) Eosinophils # (Manual) Basophils # (Manual) PT INR Fibrinogen dRVVT Confirm Interp Factor V Activity POC ABG pH POC ABG pCO2 POC ABG pO2 ABG pO2 ABG HCO3 ABG Base Excess ABG Hemoglobin Oxyhemoglobin Sodium Potassium Chloride Carbon Dioxide BUN Creatinine Glucose POC Glucose 146 H 157 H 124 H Lactic Acid Calcium Phosphorus Magnesium Direct Bilirubin AST ALT Alkaline Phosphatase Lactate Dehydrogenase Troponin T C-Reactive Protein Total Protein Albumin Prealbumin Triglycerides Cholesterol LDL Cholesterol Direct HDL Cholesterol PTH Intact Urine pH Urine WBC (Auto) Urine Creatinine Urine Total Protein Fluid Total Protein Vancomycin Trough Rheumatoid Factor Complement C4 Miscellaneous Test Crossmatch 12/03/16 12/04/16 12/04/16 23:41 04:00 04:45 WBC RBC Hgb Hct MCV MCH MCHC RDW Plt Count Lymph % (Auto) [place] % (Auto) Lymph # [place] # Baso # Seg Neutrophils % Seg Neuts % (Manual) Lymphocytes % (Manual) Monocytes % (Manual) Eosinophils % (Manual) Basophils % (Manual) Nucleated RBC % Seg Neutrophils # Seg Neutrophils # Man Lymphocytes # (Manual) Monocytes # (Manual) Eosinophils # (Manual) Basophils # (Manual) PT INR Fibrinogen dRVVT Confirm Interp Factor V Activity POC ABG pH POC ABG pCO2 POC ABG pO2 ABG pO2 ABG HCO3 ABG Base Excess ABG Hemoglobin Oxyhemoglobin Sodium Potassium Chloride Carbon Dioxide BUN 76 H Creatinine 1.6 H Glucose POC Glucose 130 H 136 H Lactic Acid Calcium Phosphorus Magnesium Direct Bilirubin AST ALT Alkaline Phosphatase 155 H Lactate Dehydrogenase Troponin T C-Reactive Protein Total Protein 5.5 L Albumin 1.5 L Prealbumin Triglycerides Cholesterol LDL Cholesterol Direct HDL Cholesterol PTH Intact Urine pH Urine WBC (Auto) Urine Creatinine Urine Total Protein Fluid Total Protein Vancomycin Trough Rheumatoid Factor Complement C4 Miscellaneous Test Crossmatch 12/04/16 12/04/16 12/05/16 12:08 17:23 00:10 WBC RBC Hgb Hct MCV MCH MCHC RDW Plt Count Lymph % (Auto) [place] % (Auto) Lymph # [place] # Baso # Seg Neutrophils % Seg Neuts % (Manual) Lymphocytes % (Manual) Monocytes % (Manual) Eosinophils % (Manual) Basophils % (Manual) Nucleated RBC % Seg Neutrophils # Seg Neutrophils # Man Lymphocytes # (Manual) Monocytes # (Manual) Eosinophils # (Manual) Basophils # (Manual) PT INR Fibrinogen dRVVT Confirm Interp Factor V Activity POC ABG pH POC ABG pCO2 POC ABG pO2 ABG pO2 ABG HCO3 ABG Base Excess ABG Hemoglobin Oxyhemoglobin Sodium Potassium Chloride Carbon Dioxide BUN Creatinine Glucose POC Glucose 114 H 129 H 124 H Lactic Acid Calcium Phosphorus Magnesium Direct Bilirubin AST ALT Alkaline Phosphatase Lactate Dehydrogenase Troponin T C-Reactive Protein Total Protein Albumin Prealbumin Triglycerides Cholesterol LDL Cholesterol Direct HDL Cholesterol PTH Intact Urine pH Urine WBC (Auto) Urine Creatinine Urine Total Protein Fluid Total Protein Vancomycin Trough Rheumatoid Factor Complement C4 Miscellaneous Test Crossmatch 12/05/16 12/05/16 12/05/16 05:00 05:00 05:18 WBC RBC Hgb Hct MCV MCH MCHC RDW Plt Count Lymph % (Auto) [place] % (Auto) Lymph # [place] # Baso # Seg Neutrophils % Seg Neuts % (Manual) Lymphocytes % (Manual) Monocytes % (Manual) Eosinophils % (Manual) Basophils % (Manual) Nucleated RBC % Seg Neutrophils # Seg Neutrophils # Man Lymphocytes # (Manual) Monocytes # (Manual) Eosinophils # (Manual) Basophils # (Manual) PT INR Fibrinogen dRVVT Confirm Interp Factor V Activity POC ABG pH POC ABG pCO2 POC ABG pO2 ABG pO2 ABG HCO3 ABG Base Excess ABG Hemoglobin Oxyhemoglobin Sodium Potassium Chloride Carbon Dioxide 21 L BUN 85 H Creatinine 1.9 H Glucose 131 H POC Glucose 154 H Lactic Acid Calcium Phosphorus Magnesium Direct Bilirubin AST ALT Alkaline Phosphatase Lactate Dehydrogenase Troponin T C-Reactive Protein 19.30 H Total Protein Albumin Prealbumin Triglycerides Cholesterol LDL Cholesterol Direct HDL Cholesterol PTH Intact Urine pH Urine WBC (Auto) Urine Creatinine Urine Total Protein Fluid Total Protein Vancomycin Trough Rheumatoid Factor Complement C4 Miscellaneous Test Crossmatch 12/05/16 12/05/16 12/05/16 11:43 17:46 23:25 WBC RBC Hgb Hct MCV MCH MCHC RDW Plt Count Lymph % (Auto) [place] % (Auto) Lymph # [place] # Baso # Seg Neutrophils % Seg Neuts % (Manual) Lymphocytes % (Manual) Monocytes % (Manual) Eosinophils % (Manual) Basophils % (Manual) Nucleated RBC % Seg Neutrophils # Seg Neutrophils # Man Lymphocytes # (Manual) Monocytes # (Manual) Eosinophils # (Manual) Basophils # (Manual) PT INR Fibrinogen dRVVT Confirm Interp Factor V Activity POC ABG pH POC ABG pCO2 POC ABG pO2 ABG pO2 ABG HCO3 ABG Base Excess ABG Hemoglobin Oxyhemoglobin Sodium Potassium Chloride Carbon Dioxide BUN Creatinine Glucose POC Glucose 117 H 113 H 111 H Lactic Acid Calcium Phosphorus Magnesium Direct Bilirubin AST ALT Alkaline Phosphatase Lactate Dehydrogenase Troponin T C-Reactive Protein Total Protein Albumin Prealbumin Triglycerides Cholesterol LDL Cholesterol Direct HDL Cholesterol PTH Intact Urine pH Urine WBC (Auto) Urine Creatinine Urine Total Protein Fluid Total Protein Vancomycin Trough Rheumatoid Factor Complement C4 Miscellaneous Test Crossmatch 12/05/16 12/06/16 12/06/16 Unknown 04:58 06:00 WBC RBC Hgb Hct MCV MCH MCHC RDW Plt Count Lymph % (Auto) [place] % (Auto) Lymph # [place] # Baso # Seg Neutrophils % Seg Neuts % (Manual) Lymphocytes % (Manual) Monocytes % (Manual) Eosinophils % (Manual) Basophils % (Manual) Nucleated RBC % Seg Neutrophils # Seg Neutrophils # Man Lymphocytes # (Manual) Monocytes # (Manual) Eosinophils # (Manual) Basophils # (Manual) PT INR Fibrinogen dRVVT Confirm Interp Factor V Activity POC ABG pH POC ABG pCO2 POC ABG pO2 ABG pO2 75.2 L ABG HCO3 ABG Base Excess -3.4 L ABG Hemoglobin 7.4 L Oxyhemoglobin 94.5 L Sodium Potassium Chloride Carbon Dioxide 20 L BUN 99 H Creatinine 2.1 H Glucose 126 H POC Glucose 145 H Lactic Acid Calcium Phosphorus 4.80 H Magnesium Direct Bilirubin AST ALT Alkaline Phosphatase Lactate Dehydrogenase Troponin T C-Reactive Protein Total Protein Albumin Prealbumin Triglycerides Cholesterol LDL Cholesterol Direct HDL Cholesterol PTH Intact Urine pH Urine WBC (Auto) Urine Creatinine Urine Total Protein Fluid Total Protein Vancomycin Trough Rheumatoid Factor Complement C4 Miscellaneous Test Crossmatch 12/06/16 12/06/16 12/06/16 06:46 11:54 17:55 WBC RBC Hgb 8.3 L Hct 26.4 L MCV MCH MCHC RDW Plt Count Lymph % (Auto) [place] % (Auto) Lymph # [place] # Baso # Seg Neutrophils % Seg Neuts % (Manual) Lymphocytes % (Manual) Monocytes % (Manual) Eosinophils % (Manual) Basophils % (Manual) Nucleated RBC % Seg Neutrophils # Seg Neutrophils # Man Lymphocytes # (Manual) Monocytes # (Manual) Eosinophils # (Manual) Basophils # (Manual) PT INR Fibrinogen dRVVT Confirm Interp Factor V Activity POC ABG pH POC ABG pCO2 POC ABG pO2 ABG pO2 ABG HCO3 ABG Base Excess ABG Hemoglobin Oxyhemoglobin Sodium Potassium Chloride Carbon Dioxide BUN Creatinine Glucose POC Glucose 126 H 157 H Lactic Acid Calcium Phosphorus Magnesium Direct Bilirubin AST ALT Alkaline Phosphatase Lactate Dehydrogenase Troponin T C-Reactive Protein Total Protein Albumin Prealbumin Triglycerides Cholesterol LDL Cholesterol Direct HDL Cholesterol PTH Intact Urine pH Urine WBC (Auto) Urine Creatinine Urine Total Protein Fluid Total Protein Vancomycin Trough Rheumatoid Factor Complement C4 Miscellaneous Test Crossmatch 12/06/16 12/07/16 12/07/16 23:59 05:34 06:30 WBC RBC Hgb Hct MCV MCH MCHC RDW Plt Count Lymph % (Auto) [place] % (Auto) Lymph # [place] # Baso # Seg Neutrophils % Seg Neuts % (Manual) Lymphocytes % (Manual) Monocytes % (Manual) Eosinophils % (Manual) Basophils % (Manual) Nucleated RBC % Seg Neutrophils # Seg Neutrophils # Man Lymphocytes # (Manual) Monocytes # (Manual) Eosinophils # (Manual) Basophils # (Manual) PT INR Fibrinogen dRVVT Confirm Interp Factor V Activity POC ABG pH POC ABG pCO2 POC ABG pO2 ABG pO2 ABG HCO3 ABG Base Excess ABG Hemoglobin Oxyhemoglobin Sodium Potassium Chloride Carbon Dioxide BUN 67 H Creatinine 1.4 H Glucose 126 H POC Glucose 129 H 129 H Lactic Acid Calcium Phosphorus Magnesium Direct Bilirubin AST ALT Alkaline Phosphatase Lactate Dehydrogenase Troponin T C-Reactive Protein Total Protein Albumin Prealbumin Triglycerides Cholesterol LDL Cholesterol Direct HDL Cholesterol PTH Intact Urine pH Urine WBC (Auto) Urine Creatinine Urine Total Protein Fluid Total Protein Vancomycin Trough Rheumatoid Factor Complement C4 Miscellaneous Test Crossmatch 12/07/16 12/07/16 12/07/16 06:30 08:00 09:45 WBC 18.8 H RBC 2.52 L Hgb 6.9 L 6.8 L Hct 21.2 L 21.1 L MCV MCH 27 L MCHC RDW 18.0 H Plt Count Lymph % (Auto) [place] % (Auto) 9.9 H Lymph # [place] # 1.9 H Baso # Seg Neutrophils % 71.8 H Seg Neuts % (Manual) Lymphocytes % (Manual) Monocytes % (Manual) Eosinophils % (Manual) Basophils % (Manual) Nucleated RBC % Seg Neutrophils # 13.5 H Seg Neutrophils # Man Lymphocytes # (Manual) Monocytes # (Manual) Eosinophils # (Manual) Basophils # (Manual) PT INR Fibrinogen dRVVT Confirm Interp Factor V Activity POC ABG pH POC ABG pCO2 POC ABG pO2 ABG pO2 ABG HCO3 ABG Base Excess ABG Hemoglobin Oxyhemoglobin Sodium Potassium Chloride Carbon Dioxide BUN Creatinine Glucose POC Glucose Lactic Acid Calcium Phosphorus Magnesium Direct Bilirubin AST ALT Alkaline Phosphatase Lactate Dehydrogenase Troponin T C-Reactive Protein Total Protein Albumin Prealbumin Triglycerides Cholesterol LDL Cholesterol Direct HDL Cholesterol PTH Intact Urine pH Urine WBC (Auto) Urine Creatinine Urine Total Protein Fluid Total Protein Vancomycin Trough Rheumatoid Factor Complement C4 Miscellaneous Test Crossmatch See Detail 12/07/16 12/07/16 12/07/16 11:44 18:19 23:59 WBC RBC Hgb Hct MCV MCH MCHC RDW Plt Count Lymph % (Auto) [place] % (Auto) Lymph # [place] # Baso # Seg Neutrophils % Seg Neuts % (Manual) Lymphocytes % (Manual) Monocytes % (Manual) Eosinophils % (Manual) Basophils % (Manual) Nucleated RBC % Seg Neutrophils # Seg Neutrophils # Man Lymphocytes # (Manual) Monocytes # (Manual) Eosinophils # (Manual) Basophils # (Manual) PT INR Fibrinogen dRVVT Confirm Interp Factor V Activity POC ABG pH POC ABG pCO2 POC ABG pO2 ABG pO2 ABG HCO3 ABG Base Excess ABG Hemoglobin Oxyhemoglobin Sodium Potassium Chloride Carbon Dioxide BUN Creatinine Glucose POC Glucose 137 H 138 H 133 H Lactic Acid Calcium Phosphorus Magnesium Direct Bilirubin AST ALT Alkaline Phosphatase Lactate Dehydrogenase Troponin T C-Reactive Protein Total Protein Albumin Prealbumin Triglycerides Cholesterol LDL Cholesterol Direct HDL Cholesterol PTH Intact Urine pH Urine WBC (Auto) Urine Creatinine Urine Total Protein Fluid Total Protein Vancomycin Trough Rheumatoid Factor Complement C4 Miscellaneous Test Crossmatch 12/08/16 12/08/16 12/08/16 05:25 05:30 05:30 WBC 23.8 H RBC 2.88 L Hgb 8.1 L Hct 24.3 L MCV MCH MCHC RDW 16.7 H Plt Count Lymph % (Auto) [place] % (Auto) Lymph # [place] # Baso # Seg Neutrophils % Seg Neuts % (Manual) 76.0 H Lymphocytes % (Manual) 9.0 L Monocytes % (Manual) 9.0 H Eosinophils % (Manual) Basophils % (Manual) Nucleated RBC % Seg Neutrophils # Seg Neutrophils # Man 18.1 H Lymphocytes # (Manual) Monocytes # (Manual) 2.1 H Eosinophils # (Manual) Basophils # (Manual) PT INR Fibrinogen dRVVT Confirm Interp Factor V Activity POC ABG pH POC ABG pCO2 POC ABG pO2 ABG pO2 ABG HCO3 ABG Base Excess ABG Hemoglobin Oxyhemoglobin Sodium Potassium Chloride Carbon Dioxide 21 L BUN 76 H Creatinine 1.6 H Glucose 133 H POC Glucose 177 H Lactic Acid Calcium Phosphorus Magnesium Direct Bilirubin AST ALT Alkaline Phosphatase Lactate Dehydrogenase Troponin T C-Reactive Protein Total Protein Albumin Prealbumin Triglycerides Cholesterol LDL Cholesterol Direct HDL Cholesterol PTH Intact Urine pH Urine WBC (Auto) Urine Creatinine Urine Total Protein Fluid Total Protein Vancomycin Trough Rheumatoid Factor Complement C4 Miscellaneous Test Crossmatch 12/08/16 12/08/16 12/09/16 11:45 18:00 00:00 WBC RBC Hgb Hct MCV MCH MCHC RDW Plt Count Lymph % (Auto) [place] % (Auto) Lymph # [place] # Baso # Seg Neutrophils % Seg Neuts % (Manual) Lymphocytes % (Manual) Monocytes % (Manual) Eosinophils % (Manual) Basophils % (Manual) Nucleated RBC % Seg Neutrophils # Seg Neutrophils # Man Lymphocytes # (Manual) Monocytes # (Manual) Eosinophils # (Manual) Basophils # (Manual) PT INR Fibrinogen dRVVT Confirm Interp Factor V Activity POC ABG pH POC ABG pCO2 POC ABG pO2 ABG pO2 ABG HCO3 ABG Base Excess ABG Hemoglobin Oxyhemoglobin Sodium Potassium Chloride Carbon Dioxide BUN Creatinine Glucose POC Glucose 163 H 123 H 137 H Lactic Acid Calcium Phosphorus Magnesium Direct Bilirubin AST ALT Alkaline Phosphatase Lactate Dehydrogenase Troponin T C-Reactive Protein Total Protein Albumin Prealbumin Triglycerides Cholesterol LDL Cholesterol Direct HDL Cholesterol PTH Intact Urine pH Urine WBC (Auto) Urine Creatinine Urine Total Protein Fluid Total Protein Vancomycin Trough Rheumatoid Factor Complement C4 Miscellaneous Test Crossmatch 12/09/16 12/09/16 12/09/16 05:34 06:00 06:00 WBC 15.5 H RBC 2.87 L Hgb 8.0 L Hct 24.2 L MCV MCH MCHC RDW 17.2 H Plt Count Lymph % (Auto) [place] % (Auto) 11.6 H Lymph # [place] # 1.8 H Baso # Seg Neutrophils % 70.8 H Seg Neuts % (Manual) Lymphocytes % (Manual) Monocytes % (Manual) Eosinophils % (Manual) Basophils % (Manual) Nucleated RBC % Seg Neutrophils # 11.0 H Seg Neutrophils # Man Lymphocytes # (Manual) Monocytes # (Manual) Eosinophils # (Manual) Basophils # (Manual) PT INR Fibrinogen dRVVT Confirm Interp Factor V Activity POC ABG pH POC ABG pCO2 POC ABG pO2 ABG pO2 ABG HCO3 ABG Base Excess ABG Hemoglobin Oxyhemoglobin Sodium Potassium Chloride Carbon Dioxide BUN 51 H Creatinine Glucose 117 H POC Glucose 136 H Lactic Acid Calcium Phosphorus Magnesium Direct Bilirubin AST ALT Alkaline Phosphatase Lactate Dehydrogenase Troponin T C-Reactive Protein Total Protein Albumin Prealbumin Triglycerides Cholesterol LDL Cholesterol Direct HDL Cholesterol PTH Intact Urine pH Urine WBC (Auto) Urine Creatinine Urine Total Protein Fluid Total Protein Vancomycin Trough Rheumatoid Factor Complement C4 Miscellaneous Test Crossmatch 12/09/16 12/09/16 12/09/16 12:29 17:52 23:10 WBC RBC Hgb Hct MCV MCH MCHC RDW Plt Count Lymph % (Auto) [place] % (Auto) Lymph # [place] # Baso # Seg Neutrophils % Seg Neuts % (Manual) Lymphocytes % (Manual) Monocytes % (Manual) Eosinophils % (Manual) Basophils % (Manual) Nucleated RBC % Seg Neutrophils # Seg Neutrophils # Man Lymphocytes # (Manual) Monocytes # (Manual) Eosinophils # (Manual) Basophils # (Manual) PT INR Fibrinogen dRVVT Confirm Interp Factor V Activity POC ABG pH POC ABG pCO2 POC ABG pO2 ABG pO2 ABG HCO3 ABG Base Excess ABG Hemoglobin Oxyhemoglobin Sodium Potassium Chloride Carbon Dioxide BUN Creatinine Glucose POC Glucose 139 H 140 H 129 H Lactic Acid Calcium Phosphorus Magnesium Direct Bilirubin AST ALT Alkaline Phosphatase Lactate Dehydrogenase Troponin T C-Reactive Protein Total Protein Albumin Prealbumin Triglycerides Cholesterol LDL Cholesterol Direct HDL Cholesterol PTH Intact Urine pH Urine WBC (Auto) Urine Creatinine Urine Total Protein Fluid Total Protein Vancomycin Trough Rheumatoid Factor Complement C4 Miscellaneous Test Crossmatch 12/10/16 12/10/16 12/10/16 05:00 05:00 06:54 WBC 15.7 H RBC 2.87 L Hgb 8.2 L Hct 24.4 L MCV MCH MCHC RDW 17.2 H Plt Count Lymph % (Auto) [place] % (Auto) 8.3 H Lymph # [place] # 1.3 H Baso # Seg Neutrophils % 72.8 H Seg Neuts % (Manual) Lymphocytes % (Manual) Monocytes % (Manual) Eosinophils % (Manual) Basophils % (Manual) Nucleated RBC % Seg Neutrophils # 11.4 H Seg Neutrophils # Man Lymphocytes # (Manual) Monocytes # (Manual) Eosinophils # (Manual) Basophils # (Manual) PT INR Fibrinogen dRVVT Confirm Interp Factor V Activity POC ABG pH POC ABG pCO2 POC ABG pO2 ABG pO2 ABG HCO3 ABG Base Excess ABG Hemoglobin Oxyhemoglobin Sodium Potassium Chloride Carbon Dioxide BUN 64 H Creatinine 1.4 H Glucose 134 H POC Glucose 154 H Lactic Acid Calcium Phosphorus Magnesium Direct Bilirubin AST ALT Alkaline Phosphatase Lactate Dehydrogenase Troponin T C-Reactive Protein Total Protein Albumin Prealbumin Triglycerides Cholesterol LDL Cholesterol Direct HDL Cholesterol PTH Intact Urine pH Urine WBC (Auto) Urine Creatinine Urine Total Protein Fluid Total Protein Vancomycin Trough Rheumatoid Factor Complement C4 Miscellaneous Test Crossmatch 12/10/16 12/10/16 12/10/16 11:58 17:29 23:52 WBC RBC Hgb Hct MCV MCH MCHC RDW Plt Count Lymph % (Auto) [place] % (Auto) Lymph # [place] # Baso # Seg Neutrophils % Seg Neuts % (Manual) Lymphocytes % (Manual) Monocytes % (Manual) Eosinophils % (Manual) Basophils % (Manual) Nucleated RBC % Seg Neutrophils # Seg Neutrophils # Man Lymphocytes # (Manual) Monocytes # (Manual) Eosinophils # (Manual) Basophils # (Manual) PT INR Fibrinogen dRVVT Confirm Interp Factor V Activity POC ABG pH POC ABG pCO2 POC ABG pO2 ABG pO2 ABG HCO3 ABG Base Excess ABG Hemoglobin Oxyhemoglobin Sodium Potassium Chloride Carbon Dioxide BUN Creatinine Glucose POC Glucose 144 H 163 H 125 H Lactic Acid Calcium Phosphorus Magnesium Direct Bilirubin AST ALT Alkaline Phosphatase Lactate Dehydrogenase Troponin T C-Reactive Protein Total Protein Albumin Prealbumin Triglycerides Cholesterol LDL Cholesterol Direct HDL Cholesterol PTH Intact Urine pH Urine WBC (Auto) Urine Creatinine Urine Total Protein Fluid Total Protein Vancomycin Trough Rheumatoid Factor Complement C4 Miscellaneous Test Crossmatch 12/11/16 12/11/16 12/11/16 05:38 06:30 06:30 WBC 14.4 H RBC 2.76 L Hgb 7.7 L Hct 23.4 L MCV MCH MCHC RDW 17.2 H Plt Count Lymph % (Auto) [place] % (Auto) 8.8 H Lymph # [place] # 1.3 H Baso # Seg Neutrophils % 72.5 H Seg Neuts % (Manual) Lymphocytes % (Manual) Monocytes % (Manual) Eosinophils % (Manual) Basophils % (Manual) Nucleated RBC % Seg Neutrophils # 10.5 H Seg Neutrophils # Man Lymphocytes # (Manual) Monocytes # (Manual) Eosinophils # (Manual) Basophils # (Manual) PT INR Fibrinogen dRVVT Confirm Interp Factor V Activity POC ABG pH POC ABG pCO2 POC ABG pO2 ABG pO2 ABG HCO3 ABG Base Excess ABG Hemoglobin Oxyhemoglobin Sodium Potassium Chloride Carbon Dioxide BUN 43 H Creatinine Glucose 124 H POC Glucose 141 H Lactic Acid Calcium 8.3 L Phosphorus Magnesium 1.60 L Direct Bilirubin AST ALT Alkaline Phosphatase Lactate Dehydrogenase Troponin T C-Reactive Protein Total Protein Albumin Prealbumin Triglycerides Cholesterol LDL Cholesterol Direct HDL Cholesterol PTH Intact Urine pH Urine WBC (Auto) Urine Creatinine Urine Total Protein Fluid Total Protein Vancomycin Trough Rheumatoid Factor Complement C4 Miscellaneous Test Crossmatch 12/11/16 12/11/16 12/11/16 11:15 17:59 23:48 WBC RBC Hgb Hct MCV MCH MCHC RDW Plt Count Lymph % (Auto) [place] % (Auto) Lymph # [place] # Baso # Seg Neutrophils % Seg Neuts % (Manual) Lymphocytes % (Manual) Monocytes % (Manual) Eosinophils % (Manual) Basophils % (Manual) Nucleated RBC % Seg Neutrophils # Seg Neutrophils # Man Lymphocytes # (Manual) Monocytes # (Manual) Eosinophils # (Manual) Basophils # (Manual) PT INR Fibrinogen dRVVT Confirm Interp Factor V Activity POC ABG pH POC ABG pCO2 POC ABG pO2 ABG pO2 ABG HCO3 ABG Base Excess ABG Hemoglobin Oxyhemoglobin Sodium Potassium Chloride Carbon Dioxide BUN Creatinine Glucose POC Glucose 188 H 106 H 119 H Lactic Acid Calcium Phosphorus Magnesium Direct Bilirubin AST ALT Alkaline Phosphatase Lactate Dehydrogenase Troponin T C-Reactive Protein Total Protein Albumin Prealbumin Triglycerides Cholesterol LDL Cholesterol Direct HDL Cholesterol PTH Intact Urine pH Urine WBC (Auto) Urine Creatinine Urine Total Protein Fluid Total Protein Vancomycin Trough Rheumatoid Factor Complement C4 Miscellaneous Test Crossmatch 12/12/16 12/12/16 12/12/16 05:00 06:01 12:20 WBC 16.7 H RBC 2.87 L Hgb 8.0 L Hct 24.2 L MCV MCH MCHC RDW 17.6 H Plt Count Lymph % (Auto) [place] % (Auto) Lymph # [place] # 1.2 H Baso # Seg Neutrophils % 75.3 H Seg Neuts % (Manual) Lymphocytes % (Manual) Monocytes % (Manual) Eosinophils % (Manual) Basophils % (Manual) Nucleated RBC % Seg Neutrophils # 12.6 H Seg Neutrophils # Man Lymphocytes # (Manual) Monocytes # (Manual) Eosinophils # (Manual) Basophils # (Manual) PT INR Fibrinogen dRVVT Confirm Interp Factor V Activity POC ABG pH POC ABG pCO2 POC ABG pO2 ABG pO2 ABG HCO3 ABG Base Excess ABG Hemoglobin Oxyhemoglobin Sodium Potassium Chloride Carbon Dioxide BUN Creatinine Glucose POC Glucose 134 H 149 H Lactic Acid Calcium Phosphorus Magnesium Direct Bilirubin AST ALT Alkaline Phosphatase Lactate Dehydrogenase Troponin T C-Reactive Protein Total Protein Albumin Prealbumin Triglycerides Cholesterol LDL Cholesterol Direct HDL Cholesterol PTH Intact Urine pH Urine WBC (Auto) Urine Creatinine Urine Total Protein Fluid Total Protein Vancomycin Trough Rheumatoid Factor Complement C4 Miscellaneous Test Crossmatch 12/12/16 12/12/16 12/12/16 17:38 23:01 Unknown WBC RBC Hgb Hct MCV MCH MCHC RDW Plt Count Lymph % (Auto) [place] % (Auto) Lymph # [place] # Baso # Seg Neutrophils % Seg Neuts % (Manual) Lymphocytes % (Manual) Monocytes % (Manual) Eosinophils % (Manual) Basophils % (Manual) Nucleated RBC % Seg Neutrophils # Seg Neutrophils # Man Lymphocytes # (Manual) Monocytes # (Manual) Eosinophils # (Manual) Basophils # (Manual) PT INR Fibrinogen dRVVT Confirm Interp Factor V Activity POC ABG pH POC ABG pCO2 POC ABG pO2 ABG pO2 ABG HCO3 ABG Base Excess ABG Hemoglobin Oxyhemoglobin Sodium Potassium Chloride Carbon Dioxide BUN 60 H Creatinine 1.3 H Glucose 126 H POC Glucose 127 H 144 H Lactic Acid Calcium Phosphorus Magnesium Direct Bilirubin AST ALT Alkaline Phosphatase Lactate Dehydrogenase Troponin T C-Reactive Protein Total Protein Albumin Prealbumin Triglycerides Cholesterol LDL Cholesterol Direct HDL Cholesterol PTH Intact Urine pH Urine WBC (Auto) Urine Creatinine Urine Total Protein Fluid Total Protein Vancomycin Trough Rheumatoid Factor Complement C4 Miscellaneous Test Crossmatch 12/13/16 12/13/16 12/13/16 04:00 04:00 05:19 WBC 18.7 H RBC 2.89 L Hgb 8.3 L Hct 24.6 L MCV MCH MCHC RDW 17.5 H Plt Count Lymph % (Auto) [place] % (Auto) Lymph # [place] # 1.3 H Baso # Seg Neutrophils % 71.5 H Seg Neuts % (Manual) Lymphocytes % (Manual) Monocytes % (Manual) Eosinophils % (Manual) Basophils % (Manual) Nucleated RBC % Seg Neutrophils # 13.4 H Seg Neutrophils # Man Lymphocytes # (Manual) Monocytes # (Manual) Eosinophils # (Manual) Basophils # (Manual) PT INR Fibrinogen dRVVT Confirm Interp Factor V Activity POC ABG pH POC ABG pCO2 POC ABG pO2 ABG pO2 ABG HCO3 ABG Base Excess ABG Hemoglobin Oxyhemoglobin Sodium Potassium Chloride Carbon Dioxide BUN 73 H Creatinine 1.5 H Glucose 141 H POC Glucose 171 H Lactic Acid Calcium Phosphorus Magnesium Direct Bilirubin AST ALT Alkaline Phosphatase Lactate Dehydrogenase Troponin T C-Reactive Protein Total Protein Albumin Prealbumin Triglycerides Cholesterol LDL Cholesterol Direct HDL Cholesterol PTH Intact Urine pH Urine WBC (Auto) Urine Creatinine Urine Total Protein Fluid Total Protein Vancomycin Trough Rheumatoid Factor Complement C4 Miscellaneous Test Crossmatch 12/13/16 12/13/16 12/14/16 12:28 16:48 00:01 WBC RBC Hgb Hct MCV MCH MCHC RDW Plt Count Lymph % (Auto) [place]cock % (Auto) Lymph # Hitchcock # Baso # Seg Neutrophils % Seg Neuts % (Manual) Lymphocytes % (Manual) Monocytes % (Manual) Eosinophils % (Manual) Basophils % (Manual) Nucleated RBC % Seg Neutrophils # Seg Neutrophils # Man Lymphocytes # (Manual) Monocytes # (Manual) Eosinophils # (Manual) Basophils # (Manual) PT INR Fibrinogen dRVVT Confirm Interp Factor V Activity POC ABG pH POC ABG pCO2 POC ABG pO2 ABG pO2 ABG HCO3 ABG Base Excess ABG Hemoglobin Oxyhemoglobin Sodium Potassium Chloride Carbon Dioxide BUN Creatinine Glucose POC Glucose 206 H 173 H 139 H Lactic Acid Calcium Phosphorus Magnesium Direct Bilirubin AST ALT Alkaline Phosphatase Lactate Dehydrogenase Troponin T C-Reactive Protein Total Protein Albumin Prealbumin Triglycerides Cholesterol LDL Cholesterol Direct HDL Cholesterol PTH Intact Urine pH Urine WBC (Auto) Urine Creatinine Urine Total Protein Fluid Total Protein Vancomycin Trough Rheumatoid Factor Complement C4 Miscellaneous Test Crossmatch 12/14/16 12/14/16 12/14/16 05:16 06:10 11:17 WBC RBC Hgb Hct MCV MCH MCHC RDW Plt Count Lymph % (Auto) [place] % (Auto) Lymph # [place] # Baso # Seg Neutrophils % Seg Neuts % (Manual) Lymphocytes % (Manual) Monocytes % (Manual) Eosinophils % (Manual) Basophils % (Manual) Nucleated RBC % Seg Neutrophils # Seg Neutrophils # Man Lymphocytes # (Manual) Monocytes # (Manual) Eosinophils # (Manual) Basophils # (Manual) PT INR Fibrinogen dRVVT Confirm Interp Factor V Activity POC ABG pH POC ABG pCO2 POC ABG pO2 ABG pO2 ABG HCO3 ABG Base Excess ABG Hemoglobin Oxyhemoglobin Sodium Potassium Chloride Carbon Dioxide BUN 57 H Creatinine 1.4 H Glucose 135 H POC Glucose 158 H 137 H Lactic Acid Calcium Phosphorus Magnesium Direct Bilirubin AST ALT Alkaline Phosphatase Lactate Dehydrogenase Troponin T C-Reactive Protein Total Protein Albumin Prealbumin Triglycerides Cholesterol LDL Cholesterol Direct HDL Cholesterol PTH Intact Urine pH Urine WBC (Auto) Urine Creatinine Urine Total Protein Fluid Total Protein Vancomycin Trough Rheumatoid Factor Complement C4 Miscellaneous Test Crossmatch 12/14/16 12/14/16 12/15/16 17:52 23:27 04:00 WBC RBC Hgb Hct MCV MCH MCHC RDW Plt Count Lymph % (Auto) [place] % (Auto) Lymph # [place] # Baso # Seg Neutrophils % Seg Neuts % (Manual) Lymphocytes % (Manual) Monocytes % (Manual) Eosinophils % (Manual) Basophils % (Manual) Nucleated RBC % Seg Neutrophils # Seg Neutrophils # Man Lymphocytes # (Manual) Monocytes # (Manual) Eosinophils # (Manual) Basophils # (Manual) PT INR Fibrinogen dRVVT Confirm Interp Factor V Activity POC ABG pH POC ABG pCO2 POC ABG pO2 ABG pO2 ABG HCO3 ABG Base Excess ABG Hemoglobin Oxyhemoglobin Sodium Potassium Chloride 97.9 L Carbon Dioxide BUN 75 H Creatinine 1.6 H Glucose 122 H POC Glucose 149 H 163 H Lactic Acid Calcium Phosphorus 5.20 H Magnesium Direct Bilirubin AST ALT Alkaline Phosphatase Lactate Dehydrogenase Troponin T C-Reactive Protein Total Protein Albumin Prealbumin Triglycerides Cholesterol LDL Cholesterol Direct HDL Cholesterol PTH Intact Urine pH Urine WBC (Auto) Urine Creatinine Urine Total Protein Fluid Total Protein Vancomycin Trough Rheumatoid Factor Complement C4 Miscellaneous Test Crossmatch 12/15/16 12/15/16 12/15/16 05:50 11:24 17:01 WBC RBC Hgb Hct MCV MCH MCHC RDW Plt Count Lymph % (Auto) [place] % (Auto) Lymph # [place] # Baso # Seg Neutrophils % Seg Neuts % (Manual) Lymphocytes % (Manual) Monocytes % (Manual) Eosinophils % (Manual) Basophils % (Manual) Nucleated RBC % Seg Neutrophils # Seg Neutrophils # Man Lymphocytes # (Manual) Monocytes # (Manual) Eosinophils # (Manual) Basophils # (Manual) PT INR Fibrinogen dRVVT Confirm Interp Factor V Activity POC ABG pH POC ABG pCO2 POC ABG pO2 ABG pO2 ABG HCO3 ABG Base Excess ABG Hemoglobin Oxyhemoglobin Sodium Potassium Chloride Carbon Dioxide BUN Creatinine Glucose POC Glucose 150 H 146 H 167 H Lactic Acid Calcium Phosphorus Magnesium Direct Bilirubin AST ALT Alkaline Phosphatase Lactate Dehydrogenase Troponin T C-Reactive Protein Total Protein Albumin Prealbumin Triglycerides Cholesterol LDL Cholesterol Direct HDL Cholesterol PTH Intact Urine pH Urine WBC (Auto) Urine Creatinine Urine Total Protein Fluid Total Protein Vancomycin Trough Rheumatoid Factor Complement C4 Miscellaneous Test Crossmatch 12/15/16 12/16/16 12/16/16 23:34 05:25 11:24 WBC RBC Hgb Hct MCV MCH MCHC RDW Plt Count Lymph % (Auto) [place] % (Auto) Lymph # [place] # Baso # Seg Neutrophils % Seg Neuts % (Manual) Lymphocytes % (Manual) Monocytes % (Manual) Eosinophils % (Manual) Basophils % (Manual) Nucleated RBC % Seg Neutrophils # Seg Neutrophils # Man Lymphocytes # (Manual) Monocytes # (Manual) Eosinophils # (Manual) Basophils # (Manual) PT INR Fibrinogen dRVVT Confirm Interp Factor V Activity POC ABG pH POC ABG pCO2 POC ABG pO2 ABG pO2 ABG HCO3 ABG Base Excess ABG Hemoglobin Oxyhemoglobin Sodium Potassium Chloride Carbon Dioxide BUN Creatinine Glucose POC Glucose 127 H 139 H 165 H Lactic Acid Calcium Phosphorus Magnesium Direct Bilirubin AST ALT Alkaline Phosphatase Lactate Dehydrogenase Troponin T C-Reactive Protein Total Protein Albumin Prealbumin Triglycerides Cholesterol LDL Cholesterol Direct HDL Cholesterol PTH Intact Urine pH Urine WBC (Auto) Urine Creatinine Urine Total Protein Fluid Total Protein Vancomycin Trough Rheumatoid Factor Complement C4 Miscellaneous Test Crossmatch 12/16/16 12/16/1617 15:30 16:25 17:31 WBC 17.8 H RBC 2.38 L Hgb 6.4 L Hct 20.3 L MCV MCH 27 L MCHC RDW 17.4 H Plt Count Lymph % (Auto) [place] % (Auto) Lymph # [place] # Baso # Seg Neutrophils % Seg Neuts % (Manual) Lymphocytes % (Manual) Monocytes % (Manual) 10.0 H Eosinophils % (Manual) Basophils % (Manual) Nucleated RBC % Seg Neutrophils # Seg Neutrophils # Man 8.5 H Lymphocytes # (Manual) Monocytes # (Manual) 1.8 H Eosinophils # (Manual) Basophils # (Manual) PT INR Fibrinogen dRVVT Confirm Interp Factor V Activity POC ABG pH POC ABG pCO2 POC ABG pO2 ABG pO2 ABG HCO3 ABG Base Excess ABG Hemoglobin Oxyhemoglobin Sodium Potassium Chloride Carbon Dioxide BUN Creatinine Glucose POC Glucose 176 H Lactic Acid Calcium Phosphorus Magnesium Direct Bilirubin AST ALT Alkaline Phosphatase Lactate Dehydrogenase Troponin T C-Reactive Protein Total Protein Albumin Prealbumin Triglycerides Cholesterol LDL Cholesterol Direct HDL Cholesterol PTH Intact Urine pH Urine WBC (Auto) Urine Creatinine Urine Total Protein Fluid Total Protein Vancomycin Trough Rheumatoid Factor Complement C4 Miscellaneous Test Crossmatch See Detail 12/17/16 12/17/16 12/17/16 00:14 04:00 05:00 WBC 20.0 H RBC 2.99 L Hgb 8.5 L Hct 25.7 L MCV MCH MCHC RDW 17.2 H Plt Count Lymph % (Auto) [place] % (Auto) Lymph # [place] # Baso # Seg Neutrophils % Seg Neuts % (Manual) Lymphocytes % (Manual) Monocytes % (Manual) Eosinophils % (Manual) Basophils % (Manual) Nucleated RBC % Seg Neutrophils # Seg Neutrophils # Man Lymphocytes # (Manual) Monocytes # (Manual) Eosinophils # (Manual) Basophils # (Manual) PT INR Fibrinogen dRVVT Confirm Interp Factor V Activity POC ABG pH POC ABG pCO2 POC ABG pO2 ABG pO2 ABG HCO3 ABG Base Excess ABG Hemoglobin Oxyhemoglobin Sodium Potassium Chloride 97.7 L Carbon Dioxide BUN 73 H Creatinine 1.7 H Glucose 136 H POC Glucose 148 H Lactic Acid Calcium Phosphorus 2.20 L Magnesium 2.70 H Direct Bilirubin AST ALT Alkaline Phosphatase Lactate Dehydrogenase Troponin T C-Reactive Protein Total Protein Albumin Prealbumin Triglycerides Cholesterol LDL Cholesterol Direct HDL Cholesterol PTH Intact Urine pH Urine WBC (Auto) Urine Creatinine Urine Total Protein Fluid Total Protein Vancomycin Trough Rheumatoid Factor Complement C4 Miscellaneous Test Crossmatch 12/17/16 12/17/16 12/17/16 05:39 12:50 16:32 WBC RBC Hgb Hct MCV MCH MCHC RDW Plt Count Lymph % (Auto) [place] % (Auto) Lymph # [place] # Baso # Seg Neutrophils % Seg Neuts % (Manual) Lymphocytes % (Manual) Monocytes % (Manual) Eosinophils % (Manual) Basophils % (Manual) Nucleated RBC % Seg Neutrophils # Seg Neutrophils # Man Lymphocytes # (Manual) Monocytes # (Manual) Eosinophils # (Manual) Basophils # (Manual) PT INR Fibrinogen dRVVT Confirm Interp Factor V Activity POC ABG pH POC ABG pCO2 POC ABG pO2 ABG pO2 ABG HCO3 ABG Base Excess ABG Hemoglobin Oxyhemoglobin Sodium Potassium Chloride Carbon Dioxide BUN Creatinine Glucose POC Glucose 162 H 146 H 169 H Lactic Acid Calcium Phosphorus Magnesium Direct Bilirubin AST ALT Alkaline Phosphatase Lactate Dehydrogenase Troponin T C-Reactive Protein Total Protein Albumin Prealbumin Triglycerides Cholesterol LDL Cholesterol Direct HDL Cholesterol PTH Intact Urine pH Urine WBC (Auto) Urine Creatinine Urine Total Protein Fluid Total Protein Vancomycin Trough Rheumatoid Factor Complement C4 Miscellaneous Test Crossmatch 12/17/16 12/18/16 12/18/16 23:57 05:00 05:32 WBC RBC Hgb Hct MCV MCH MCHC RDW Plt Count Lymph % (Auto) [place] % (Auto) Lymph # [place] # Baso # Seg Neutrophils % Seg Neuts % (Manual) Lymphocytes % (Manual) Monocytes % (Manual) Eosinophils % (Manual) Basophils % (Manual) Nucleated RBC % Seg Neutrophils # Seg Neutrophils # Man Lymphocytes # (Manual) Monocytes # (Manual) Eosinophils # (Manual) Basophils # (Manual) PT INR Fibrinogen dRVVT Confirm Interp Factor V Activity POC ABG pH POC ABG pCO2 POC ABG pO2 ABG pO2 ABG HCO3 ABG Base Excess ABG Hemoglobin Oxyhemoglobin Sodium Potassium Chloride 97.0 L Carbon Dioxide BUN 63 H Creatinine 1.4 H Glucose 174 H POC Glucose 145 H 201 H Lactic Acid Calcium Phosphorus 1.70 L D Magnesium Direct Bilirubin AST ALT Alkaline Phosphatase 257 H Lactate Dehydrogenase Troponin T C-Reactive Protein Total Protein 5.9 L Albumin 1.8 L Prealbumin Triglycerides Cholesterol LDL Cholesterol Direct HDL Cholesterol PTH Intact Urine pH Urine WBC (Auto) Urine Creatinine Urine Total Protein Fluid Total Protein Vancomycin Trough Rheumatoid Factor Complement C4 Miscellaneous Test Crossmatch 12/18/16 12/18/16 12/18/16 11:43 16:52 23:52 WBC RBC Hgb Hct MCV MCH MCHC RDW Plt Count Lymph % (Auto) [place] % (Auto) Lymph # [place] # Baso # Seg Neutrophils % Seg Neuts % (Manual) Lymphocytes % (Manual) Monocytes % (Manual) Eosinophils % (Manual) Basophils % (Manual) Nucleated RBC % Seg Neutrophils # Seg Neutrophils # Man Lymphocytes # (Manual) Monocytes # (Manual) Eosinophils # (Manual) Basophils # (Manual) PT INR Fibrinogen dRVVT Confirm Interp Factor V Activity POC ABG pH POC ABG pCO2 POC ABG pO2 ABG pO2 ABG HCO3 ABG Base Excess ABG Hemoglobin Oxyhemoglobin Sodium Potassium Chloride Carbon Dioxide BUN Creatinine Glucose POC Glucose 177 H 110 H 162 H Lactic Acid Calcium Phosphorus Magnesium Direct Bilirubin AST ALT Alkaline Phosphatase Lactate Dehydrogenase Troponin T C-Reactive Protein Total Protein Albumin Prealbumin Triglycerides Cholesterol LDL Cholesterol Direct HDL Cholesterol PTH Intact Urine pH Urine WBC (Auto) Urine Creatinine Urine Total Protein Fluid Total Protein Vancomycin Trough Rheumatoid Factor Complement C4 Miscellaneous Test Crossmatch 12/19/16 12/19/16 12/19/16 05:02 05:24 09:30 WBC 20.1 H RBC 2.73 L Hgb 7.6 L Hct 23.6 L MCV MCH MCHC RDW 17.6 H Plt Count Lymph % (Auto) [place] % (Auto) Lymph # [place] # Baso # Seg Neutrophils % Seg Neuts % (Manual) Lymphocytes % (Manual) 13.0 L Monocytes % (Manual) Eosinophils % (Manual) Basophils % (Manual) Nucleated RBC % 1.0 H Seg Neutrophils # Seg Neutrophils # Man 12.9 H Lymphocytes # (Manual) Monocytes # (Manual) 1.4 H Eosinophils # (Manual) Basophils # (Manual) 0.2 H PT INR Fibrinogen dRVVT Confirm Interp Factor V Activity POC ABG pH POC ABG pCO2 POC ABG pO2 ABG pO2 ABG HCO3 ABG Base Excess ABG Hemoglobin Oxyhemoglobin Sodium Potassium Chloride 97.8 L Carbon Dioxide BUN 84 H Creatinine 1.6 H Glucose 133 H POC Glucose 134 H Lactic Acid Calcium Phosphorus Magnesium Direct Bilirubin AST ALT Alkaline Phosphatase Lactate Dehydrogenase Troponin T C-Reactive Protein Total Protein Albumin Prealbumin Triglycerides Cholesterol LDL Cholesterol Direct HDL Cholesterol PTH Intact Urine pH Urine WBC (Auto) Urine Creatinine Urine Total Protein Fluid Total Protein Vancomycin Trough Rheumatoid Factor Complement C4 Miscellaneous Test Crossmatch 12/19/16 12/19/16 12/19/16 09:36 11:12 18:29 WBC RBC Hgb Hct MCV MCH MCHC RDW Plt Count Lymph % (Auto) [place] % (Auto) Lymph # [place] # Baso # Seg Neutrophils % Seg Neuts % (Manual) Lymphocytes % (Manual) Monocytes % (Manual) Eosinophils % (Manual) Basophils % (Manual) Nucleated RBC % Seg Neutrophils # Seg Neutrophils # Man Lymphocytes # (Manual) Monocytes # (Manual) Eosinophils # (Manual) Basophils # (Manual) PT INR Fibrinogen dRVVT Confirm Interp Factor V Activity POC ABG pH 7.503 H POC ABG pCO2 30.1 L POC ABG pO2 ABG pO2 ABG HCO3 ABG Base Excess ABG Hemoglobin Oxyhemoglobin Sodium Potassium Chloride Carbon Dioxide BUN Creatinine Glucose POC Glucose 138 H 156 H Lactic Acid Calcium Phosphorus Magnesium Direct Bilirubin AST ALT Alkaline Phosphatase Lactate Dehydrogenase Troponin T C-Reactive Protein Total Protein Albumin Prealbumin Triglycerides Cholesterol LDL Cholesterol Direct HDL Cholesterol PTH Intact Urine pH Urine WBC (Auto) Urine Creatinine Urine Total Protein Fluid Total Protein Vancomycin Trough Rheumatoid Factor Complement C4 Miscellaneous Test Crossmatch 12/20/16 12/20/16 12/20/16 00:03 06:17 07:07 WBC RBC Hgb Hct MCV MCH MCHC RDW Plt Count Lymph % (Auto) [place] % (Auto) Lymph # [place] # Baso # Seg Neutrophils % Seg Neuts % (Manual) Lymphocytes % (Manual) Monocytes % (Manual) Eosinophils % (Manual) Basophils % (Manual) Nucleated RBC % Seg Neutrophils # Seg Neutrophils # Man Lymphocytes # (Manual) Monocytes # (Manual) Eosinophils # (Manual) Basophils # (Manual) PT INR Fibrinogen dRVVT Confirm Interp Factor V Activity POC ABG pH POC ABG pCO2 POC ABG pO2 ABG pO2 ABG HCO3 ABG Base Excess ABG Hemoglobin Oxyhemoglobin Sodium Potassium Chloride 97.1 L Carbon Dioxide 20 L BUN 97 H Creatinine 1.8 H Glucose 153 H POC Glucose 152 H 175 H Lactic Acid Calcium Phosphorus Magnesium Direct Bilirubin AST ALT Alkaline Phosphatase Lactate Dehydrogenase Troponin T C-Reactive Protein Total Protein Albumin Prealbumin Triglycerides Cholesterol LDL Cholesterol Direct HDL Cholesterol PTH Intact Urine pH Urine WBC (Auto) Urine Creatinine Urine Total Protein Fluid Total Protein Vancomycin Trough Rheumatoid Factor Complement C4 Miscellaneous Test Crossmatch 12/20/16 12/20/16 12/20/16 12:00 17:42 23:53 WBC RBC Hgb Hct MCV MCH MCHC RDW Plt Count Lymph % (Auto) [place] % (Auto) Lymph # [place] # Baso # Seg Neutrophils % Seg Neuts % (Manual) Lymphocytes % (Manual) Monocytes % (Manual) Eosinophils % (Manual) Basophils % (Manual) Nucleated RBC % Seg Neutrophils # Seg Neutrophils # Man Lymphocytes # (Manual) Monocytes # (Manual) Eosinophils # (Manual) Basophils # (Manual) PT INR Fibrinogen dRVVT Confirm Interp Factor V Activity POC ABG pH POC ABG pCO2 POC ABG pO2 ABG pO2 ABG HCO3 ABG Base Excess ABG Hemoglobin Oxyhemoglobin Sodium Potassium Chloride Carbon Dioxide BUN Creatinine Glucose POC Glucose 141 H 156 H 132 H Lactic Acid Calcium Phosphorus Magnesium Direct Bilirubin AST ALT Alkaline Phosphatase Lactate Dehydrogenase Troponin T C-Reactive Protein Total Protein Albumin Prealbumin Triglycerides Cholesterol LDL Cholesterol Direct HDL Cholesterol PTH Intact Urine pH Urine WBC (Auto) Urine Creatinine Urine Total Protein Fluid Total Protein Vancomycin Trough Rheumatoid Factor Complement C4 Miscellaneous Test Crossmatch 12/21/16 12/21/16 12/21/16 05:49 08:50 12:19 WBC RBC Hgb Hct MCV MCH MCHC RDW Plt Count Lymph % (Auto) [place] % (Auto) Lymph # [place] # Baso # Seg Neutrophils % Seg Neuts % (Manual) Lymphocytes % (Manual) Monocytes % (Manual) Eosinophils % (Manual) Basophils % (Manual) Nucleated RBC % Seg Neutrophils # Seg Neutrophils # Man Lymphocytes # (Manual) Monocytes # (Manual) Eosinophils # (Manual) Basophils # (Manual) PT INR Fibrinogen dRVVT Confirm Interp Factor V Activity POC ABG pH POC ABG pCO2 POC ABG pO2 ABG pO2 ABG HCO3 ABG Base Excess ABG Hemoglobin Oxyhemoglobin Sodium Potassium 5.2 H D Chloride Carbon Dioxide BUN 63 H Creatinine Glucose 122 H POC Glucose 132 H 136 H Lactic Acid Calcium 8.3 L Phosphorus Magnesium Direct Bilirubin AST ALT Alkaline Phosphatase Lactate Dehydrogenase Troponin T C-Reactive Protein Total Protein Albumin Prealbumin Triglycerides Cholesterol LDL Cholesterol Direct HDL Cholesterol PTH Intact Urine pH Urine WBC (Auto) Urine Creatinine Urine Total Protein Fluid Total Protein Vancomycin Trough Rheumatoid Factor Complement C4 Miscellaneous Test Crossmatch 12/21/16 12/21/16 12/22/16 17:22 23:58 05:49 WBC RBC Hgb Hct MCV MCH MCHC RDW Plt Count Lymph % (Auto) [place] % (Auto) Lymph # [place] # Baso # Seg Neutrophils % Seg Neuts % (Manual) Lymphocytes % (Manual) Monocytes % (Manual) Eosinophils % (Manual) Basophils % (Manual) Nucleated RBC % Seg Neutrophils # Seg Neutrophils # Man Lymphocytes # (Manual) Monocytes # (Manual) Eosinophils # (Manual) Basophils # (Manual) PT INR Fibrinogen dRVVT Confirm Interp Factor V Activity POC ABG pH POC ABG pCO2 POC ABG pO2 ABG pO2 ABG HCO3 ABG Base Excess ABG Hemoglobin Oxyhemoglobin Sodium Potassium Chloride Carbon Dioxide BUN Creatinine Glucose POC Glucose 135 H 149 H 140 H Lactic Acid Calcium Phosphorus Magnesium Direct Bilirubin AST ALT Alkaline Phosphatase Lactate Dehydrogenase Troponin T C-Reactive Protein Total Protein Albumin Prealbumin Triglycerides Cholesterol LDL Cholesterol Direct HDL Cholesterol PTH Intact Urine pH Urine WBC (Auto) Urine Creatinine Urine Total Protein Fluid Total Protein Vancomycin Trough Rheumatoid Factor Complement C4 Miscellaneous Test Crossmatch 12/22/16 12/22/16 12/22/16 06:10 11:17 17:31 WBC RBC Hgb Hct MCV MCH MCHC RDW Plt Count Lymph % (Auto) [place] % (Auto) Lymph # [place] # Baso # Seg Neutrophils % Seg Neuts % (Manual) Lymphocytes % (Manual) Monocytes % (Manual) Eosinophils % (Manual) Basophils % (Manual) Nucleated RBC % Seg Neutrophils # Seg Neutrophils # Man Lymphocytes # (Manual) Monocytes # (Manual) Eosinophils # (Manual) Basophils # (Manual) PT INR Fibrinogen dRVVT Confirm Interp Factor V Activity POC ABG pH POC ABG pCO2 POC ABG pO2 ABG pO2 ABG HCO3 ABG Base Excess ABG Hemoglobin Oxyhemoglobin Sodium Potassium Chloride Carbon Dioxide BUN 76 H Creatinine 1.5 H Glucose 241 H POC Glucose 193 H 148 H Lactic Acid Calcium Phosphorus Magnesium Direct Bilirubin AST ALT Alkaline Phosphatase Lactate Dehydrogenase Troponin T C-Reactive Protein Total Protein Albumin Prealbumin Triglycerides Cholesterol LDL Cholesterol Direct HDL Cholesterol PTH Intact Urine pH Urine WBC (Auto) Urine Creatinine Urine Total Protein Fluid Total Protein Vancomycin Trough Rheumatoid Factor Complement C4 Miscellaneous Test Crossmatch 12/22/16 12/23/16 12/23/16 23:58 05:00 05:26 WBC RBC Hgb Hct MCV MCH MCHC RDW Plt Count Lymph % (Auto) [place] % (Auto) Lymph # [place] # Baso # Seg Neutrophils % Seg Neuts % (Manual) Lymphocytes % (Manual) Monocytes % (Manual) Eosinophils % (Manual) Basophils % (Manual) Nucleated RBC % Seg Neutrophils # Seg Neutrophils # Man Lymphocytes # (Manual) Monocytes # (Manual) Eosinophils # (Manual) Basophils # (Manual) PT INR Fibrinogen dRVVT Confirm Interp Factor V Activity POC ABG pH POC ABG pCO2 POC ABG pO2 ABG pO2 ABG HCO3 ABG Base Excess ABG Hemoglobin Oxyhemoglobin Sodium Potassium Chloride Carbon Dioxide BUN 49 H Creatinine Glucose 143 H POC Glucose 165 H 154 H Lactic Acid Calcium 8.2 L Phosphorus Magnesium 1.60 L Direct Bilirubin AST ALT Alkaline Phosphatase Lactate Dehydrogenase Troponin T C-Reactive Protein Total Protein Albumin Prealbumin Triglycerides Cholesterol LDL Cholesterol Direct HDL Cholesterol PTH Intact Urine pH Urine WBC (Auto) Urine Creatinine Urine Total Protein Fluid Total Protein Vancomycin Trough Rheumatoid Factor Complement C4 Miscellaneous Test Crossmatch 12/23/16 12/23/16 12/24/16 12:35 17:01 00:01 WBC RBC Hgb Hct MCV MCH MCHC RDW Plt Count Lymph % (Auto) [place] % (Auto) Lymph # [place] # Baso # Seg Neutrophils % Seg Neuts % (Manual) Lymphocytes % (Manual) Monocytes % (Manual) Eosinophils % (Manual) Basophils % (Manual) Nucleated RBC % Seg Neutrophils # Seg Neutrophils # Man Lymphocytes # (Manual) Monocytes # (Manual) Eosinophils # (Manual) Basophils # (Manual) PT INR Fibrinogen dRVVT Confirm Interp Factor V Activity POC ABG pH POC ABG pCO2 POC ABG pO2 ABG pO2 ABG HCO3 ABG Base Excess ABG Hemoglobin Oxyhemoglobin Sodium Potassium Chloride Carbon Dioxide BUN Creatinine Glucose POC Glucose 164 H 149 H 135 H Lactic Acid Calcium Phosphorus Magnesium Direct Bilirubin AST ALT Alkaline Phosphatase Lactate Dehydrogenase Troponin T C-Reactive Protein Total Protein Albumin Prealbumin Triglycerides Cholesterol LDL Cholesterol Direct HDL Cholesterol PTH Intact Urine pH Urine WBC (Auto) Urine Creatinine Urine Total Protein Fluid Total Protein Vancomycin Trough Rheumatoid Factor Complement C4 Miscellaneous Test Crossmatch 12/24/16 12/24/16 12/24/16 05:41 07:01 11:38 WBC RBC Hgb Hct MCV MCH MCHC RDW Plt Count Lymph % (Auto) [place] % (Auto) Lymph # [place] # Baso # Seg Neutrophils % Seg Neuts % (Manual) Lymphocytes % (Manual) Monocytes % (Manual) Eosinophils % (Manual) Basophils % (Manual) Nucleated RBC % Seg Neutrophils # Seg Neutrophils # Man Lymphocytes # (Manual) Monocytes # (Manual) Eosinophils # (Manual) Basophils # (Manual) PT INR Fibrinogen dRVVT Confirm Interp Factor V Activity POC ABG pH POC ABG pCO2 POC ABG pO2 ABG pO2 ABG HCO3 ABG Base Excess ABG Hemoglobin Oxyhemoglobin Sodium Potassium Chloride Carbon Dioxide BUN 72 H Creatinine 1.3 H Glucose 130 H POC Glucose 132 H 156 H Lactic Acid Calcium 8.2 L Phosphorus Magnesium Direct Bilirubin AST ALT Alkaline Phosphatase Lactate Dehydrogenase Troponin T C-Reactive Protein Total Protein Albumin Prealbumin Triglycerides Cholesterol LDL Cholesterol Direct HDL Cholesterol PTH Intact Urine pH Urine WBC (Auto) Urine Creatinine Urine Total Protein Fluid Total Protein Vancomycin Trough Rheumatoid Factor Complement C4 Miscellaneous Test Crossmatch 12/24/16 12/25/16 12/25/16 17:53 00:23 05:45 WBC RBC Hgb Hct MCV MCH MCHC RDW Plt Count Lymph % (Auto) [place] % (Auto) Lymph # [place] # Baso # Seg Neutrophils % Seg Neuts % (Manual) Lymphocytes % (Manual) Monocytes % (Manual) Eosinophils % (Manual) Basophils % (Manual) Nucleated RBC % Seg Neutrophils # Seg Neutrophils # Man Lymphocytes # (Manual) Monocytes # (Manual) Eosinophils # (Manual) Basophils # (Manual) PT INR Fibrinogen dRVVT Confirm Interp Factor V Activity POC ABG pH POC ABG pCO2 POC ABG pO2 ABG pO2 ABG HCO3 ABG Base Excess ABG Hemoglobin Oxyhemoglobin Sodium 146 H Potassium Chloride Carbon Dioxide BUN 51 H Creatinine Glucose 109 H POC Glucose 169 H 117 H Lactic Acid Calcium Phosphorus Magnesium Direct Bilirubin AST ALT Alkaline Phosphatase Lactate Dehydrogenase Troponin T C-Reactive Protein Total Protein Albumin Prealbumin Triglycerides Cholesterol LDL Cholesterol Direct HDL Cholesterol PTH Intact Urine pH Urine WBC (Auto) Urine Creatinine Urine Total Protein Fluid Total Protein Vancomycin Trough Rheumatoid Factor Complement C4 Miscellaneous Test Crossmatch 12/25/16 12/25/16 12/25/16 06:43 11:29 17:14 WBC RBC Hgb Hct MCV MCH MCHC RDW Plt Count Lymph % (Auto) [place] % (Auto) Lymph # [place] # Baso # Seg Neutrophils % Seg Neuts % (Manual) Lymphocytes % (Manual) Monocytes % (Manual) Eosinophils % (Manual) Basophils % (Manual) Nucleated RBC % Seg Neutrophils # Seg Neutrophils # Man Lymphocytes # (Manual) Monocytes # (Manual) Eosinophils # (Manual) Basophils # (Manual) PT INR Fibrinogen dRVVT Confirm Interp Factor V Activity POC ABG pH POC ABG pCO2 POC ABG pO2 ABG pO2 ABG HCO3 ABG Base Excess ABG Hemoglobin Oxyhemoglobin Sodium Potassium Chloride Carbon Dioxide BUN Creatinine Glucose POC Glucose 117 H 128 H 120 H Lactic Acid Calcium Phosphorus Magnesium Direct Bilirubin AST ALT Alkaline Phosphatase Lactate Dehydrogenase Troponin T C-Reactive Protein Total Protein Albumin Prealbumin Triglycerides Cholesterol LDL Cholesterol Direct HDL Cholesterol PTH Intact Urine pH Urine WBC (Auto) Urine Creatinine Urine Total Protein Fluid Total Protein Vancomycin Trough Rheumatoid Factor Complement C4 Miscellaneous Test Crossmatch 12/25/16 12/26/16 12/26/16 23:54 05:40 05:50 WBC 16.2 H RBC 2.32 L Hgb 6.2 L Hct 20.1 L MCV MCH 27 L MCHC RDW 18.6 H Plt Count Lymph % (Auto) [place] % (Auto) Lymph # [place] # Baso # Seg Neutrophils % Seg Neuts % (Manual) Lymphocytes % (Manual) Monocytes % (Manual) Eosinophils % (Manual) Basophils % (Manual) Nucleated RBC % Seg Neutrophils # Seg Neutrophils # Man Lymphocytes # (Manual) Monocytes # (Manual) Eosinophils # (Manual) Basophils # (Manual) PT INR Fibrinogen dRVVT Confirm Interp Factor V Activity POC ABG pH POC ABG pCO2 POC ABG pO2 ABG pO2 ABG HCO3 ABG Base Excess ABG Hemoglobin Oxyhemoglobin Sodium Potassium Chloride Carbon Dioxide BUN Creatinine Glucose POC Glucose 126 H 132 H Lactic Acid Calcium Phosphorus Magnesium Direct Bilirubin AST ALT Alkaline Phosphatase Lactate Dehydrogenase Troponin T C-Reactive Protein Total Protein Albumin Prealbumin Triglycerides Cholesterol LDL Cholesterol Direct HDL Cholesterol PTH Intact Urine pH Urine WBC (Auto) Urine Creatinine Urine Total Protein Fluid Total Protein Vancomycin Trough Rheumatoid Factor Complement C4 Miscellaneous Test Crossmatch 12/26/16 12/26/16 12/26/16 05:50 12:17 12:33 WBC RBC Hgb Hct MCV MCH MCHC RDW Plt Count Lymph % (Auto) [place] % (Auto) Lymph # [place] # Baso # Seg Neutrophils % Seg Neuts % (Manual) Lymphocytes % (Manual) Monocytes % (Manual) Eosinophils % (Manual) Basophils % (Manual) Nucleated RBC % Seg Neutrophils # Seg Neutrophils # Man Lymphocytes # (Manual) Monocytes # (Manual) Eosinophils # (Manual) Basophils # (Manual) PT INR Fibrinogen dRVVT Confirm Interp Factor V Activity POC ABG pH POC ABG pCO2 POC ABG pO2 ABG pO2 ABG HCO3 ABG Base Excess ABG Hemoglobin Oxyhemoglobin Sodium Potassium Chloride Carbon Dioxide BUN 73 H Creatinine 1.3 H Glucose 113 H POC Glucose 117 H Lactic Acid Calcium Phosphorus Magnesium Direct Bilirubin AST ALT Alkaline Phosphatase Lactate Dehydrogenase Troponin T C-Reactive Protein Total Protein Albumin Prealbumin Triglycerides Cholesterol LDL Cholesterol Direct HDL Cholesterol PTH Intact Urine pH Urine WBC (Auto) Urine Creatinine Urine Total Protein Fluid Total Protein Vancomycin Trough Rheumatoid Factor Complement C4 Miscellaneous Test Crossmatch See Detail 12/26/16 12/26/16 12/27/16 20:00 23:21 05:00 WBC RBC Hgb 8.4 L Hct 26.3 L D MCV MCH MCHC RDW Plt Count Lymph % (Auto) [place] % (Auto) Lymph # [place] # Baso # Seg Neutrophils % Seg Neuts % (Manual) Lymphocytes % (Manual) Monocytes % (Manual) Eosinophils % (Manual) Basophils % (Manual) Nucleated RBC % Seg Neutrophils # Seg Neutrophils # Man Lymphocytes # (Manual) Monocytes # (Manual) Eosinophils # (Manual) Basophils # (Manual) PT INR Fibrinogen dRVVT Confirm Interp Factor V Activity POC ABG pH POC ABG pCO2 POC ABG pO2 ABG pO2 ABG HCO3 ABG Base Excess ABG Hemoglobin Oxyhemoglobin Sodium Potassium Chloride Carbon Dioxide BUN 85 H Creatinine 1.6 H Glucose 118 H POC Glucose 124 H Lactic Acid Calcium Phosphorus 4.80 H Magnesium Direct Bilirubin AST ALT Alkaline Phosphatase Lactate Dehydrogenase Troponin T C-Reactive Protein Total Protein Albumin Prealbumin Triglycerides Cholesterol LDL Cholesterol Direct HDL Cholesterol PTH Intact Urine pH Urine WBC (Auto) Urine Creatinine Urine Total Protein Fluid Total Protein Vancomycin Trough Rheumatoid Factor Complement C4 Miscellaneous Test Crossmatch 12/27/16 12/27/16 12/27/16 05:00 05:35 12:24 WBC RBC Hgb 7.6 L Hct 22.8 L MCV MCH MCHC RDW Plt Count Lymph % (Auto) [place] % (Auto) Lymph # [place] # Baso # Seg Neutrophils % Seg Neuts % (Manual) Lymphocytes % (Manual) Monocytes % (Manual) Eosinophils % (Manual) Basophils % (Manual) Nucleated RBC % Seg Neutrophils # Seg Neutrophils # Man Lymphocytes # (Manual) Monocytes # (Manual) Eosinophils # (Manual) Basophils # (Manual) PT INR Fibrinogen dRVVT Confirm Interp Factor V Activity POC ABG pH POC ABG pCO2 POC ABG pO2 ABG pO2 ABG HCO3 ABG Base Excess ABG Hemoglobin Oxyhemoglobin Sodium Potassium Chloride Carbon Dioxide BUN Creatinine Glucose POC Glucose 115 H 131 H Lactic Acid Calcium Phosphorus Magnesium Direct Bilirubin AST ALT Alkaline Phosphatase Lactate Dehydrogenase Troponin T C-Reactive Protein Total Protein Albumin Prealbumin Triglycerides Cholesterol LDL Cholesterol Direct HDL Cholesterol PTH Intact Urine pH Urine WBC (Auto) Urine Creatinine Urine Total Protein Fluid Total Protein Vancomycin Trough Rheumatoid Factor Complement C4 Miscellaneous Test Crossmatch 12/27/16 12/28/16 12/28/16 17:16 00:18 04:00 WBC RBC Hgb Hct MCV MCH MCHC RDW Plt Count Lymph % (Auto) [place] % (Auto) Lymph # [place] # Baso # Seg Neutrophils % Seg Neuts % (Manual) Lymphocytes % (Manual) Monocytes % (Manual) Eosinophils % (Manual) Basophils % (Manual) Nucleated RBC % Seg Neutrophils # Seg Neutrophils # Man Lymphocytes # (Manual) Monocytes # (Manual) Eosinophils # (Manual) Basophils # (Manual) PT INR Fibrinogen dRVVT Confirm Interp Factor V Activity POC ABG pH POC ABG pCO2 POC ABG pO2 ABG pO2 ABG HCO3 ABG Base Excess ABG Hemoglobin Oxyhemoglobin Sodium Potassium 3.5 L Chloride Carbon Dioxide BUN 57 H Creatinine Glucose 118 H POC Glucose 136 H 120 H Lactic Acid Calcium 8.3 L Phosphorus Magnesium Direct Bilirubin AST ALT Alkaline Phosphatase Lactate Dehydrogenase Troponin T C-Reactive Protein Total Protein Albumin Prealbumin Triglycerides Cholesterol LDL Cholesterol Direct HDL Cholesterol PTH Intact Urine pH Urine WBC (Auto) Urine Creatinine Urine Total Protein Fluid Total Protein Vancomycin Trough Rheumatoid Factor Complement C4 Miscellaneous Test Crossmatch 12/28/16 12/28/16 12/28/16 04:00 05:11 08:30 WBC 17.0 H RBC 2.58 L Hgb 7.1 L Hct 22.0 L MCV MCH MCHC RDW 17.6 H Plt Count Lymph % (Auto) 12.2 L [place] % (Auto) Lymph # [place] # 1.1 H Baso # Seg Neutrophils % 80.5 H Seg Neuts % (Manual) Lymphocytes % (Manual) Monocytes % (Manual) Eosinophils % (Manual) Basophils % (Manual) Nucleated RBC % Seg Neutrophils # 13.7 H Seg Neutrophils # Man Lymphocytes # (Manual) Monocytes # (Manual) Eosinophils # (Manual) Basophils # (Manual) PT 16.1 H INR 1.23 H Fibrinogen dRVVT Confirm Interp Factor V Activity POC ABG pH POC ABG pCO2 POC ABG pO2 ABG pO2 ABG HCO3 ABG Base Excess ABG Hemoglobin Oxyhemoglobin Sodium Potassium Chloride Carbon Dioxide BUN Creatinine Glucose POC Glucose 122 H Lactic Acid Calcium Phosphorus Magnesium Direct Bilirubin AST ALT Alkaline Phosphatase Lactate Dehydrogenase Troponin T C-Reactive Protein Total Protein Albumin Prealbumin Triglycerides Cholesterol LDL Cholesterol Direct HDL Cholesterol PTH Intact Urine pH Urine WBC (Auto) Urine Creatinine Urine Total Protein Fluid Total Protein Vancomycin Trough Rheumatoid Factor Complement C4 Miscellaneous Test Crossmatch 12/28/16 12/28/16 12/28/16 12:27 16:32 23:46 WBC RBC Hgb Hct MCV MCH MCHC RDW Plt Count Lymph % (Auto) [place] % (Auto) Lymph # [place] # Baso # Seg Neutrophils % Seg Neuts % (Manual) Lymphocytes % (Manual) Monocytes % (Manual) Eosinophils % (Manual) Basophils % (Manual) Nucleated RBC % Seg Neutrophils # Seg Neutrophils # Man Lymphocytes # (Manual) Monocytes # (Manual) Eosinophils # (Manual) Basophils # (Manual) PT INR Fibrinogen dRVVT Confirm Interp Factor V Activity POC ABG pH POC ABG pCO2 POC ABG pO2 ABG pO2 ABG HCO3 ABG Base Excess ABG Hemoglobin Oxyhemoglobin Sodium Potassium Chloride Carbon Dioxide BUN Creatinine Glucose POC Glucose 127 H 117 H 108 H Lactic Acid Calcium Phosphorus Magnesium Direct Bilirubin AST ALT Alkaline Phosphatase Lactate Dehydrogenase Troponin T C-Reactive Protein Total Protein Albumin Prealbumin Triglycerides Cholesterol LDL Cholesterol Direct HDL Cholesterol PTH Intact Urine pH Urine WBC (Auto) Urine Creatinine Urine Total Protein Fluid Total Protein Vancomycin Trough Rheumatoid Factor Complement C4 Miscellaneous Test Crossmatch 12/29/16 12/29/16 12/29/16 05:15 05:15 05:32 WBC RBC Hgb Hct MCV MCH MCHC RDW Plt Count Lymph % (Auto) [place] % (Auto) Lymph # [place] # Baso # Seg Neutrophils % Seg Neuts % (Manual) Lymphocytes % (Manual) Monocytes % (Manual) Eosinophils % (Manual) Basophils % (Manual) Nucleated RBC % Seg Neutrophils # Seg Neutrophils # Man Lymphocytes # (Manual) Monocytes # (Manual) Eosinophils # (Manual) Basophils # (Manual) PT INR Fibrinogen dRVVT Confirm Interp Factor V Activity POC ABG pH POC ABG pCO2 POC ABG pO2 ABG pO2 ABG HCO3 ABG Base Excess ABG Hemoglobin Oxyhemoglobin Sodium Potassium Chloride Carbon Dioxide BUN 74 H Creatinine 1.6 H Glucose 111 H POC Glucose 123 H Lactic Acid Calcium Phosphorus Magnesium Direct Bilirubin AST ALT Alkaline Phosphatase Lactate Dehydrogenase Troponin T C-Reactive Protein Total Protein Albumin Prealbumin 0.110 L Triglycerides Cholesterol LDL Cholesterol Direct HDL Cholesterol PTH Intact Urine pH Urine WBC (Auto) Urine Creatinine Urine Total Protein Fluid Total Protein Vancomycin Trough Rheumatoid Factor Complement C4 Miscellaneous Test Crossmatch 12/29/16 12/29/16 12/29/16 11:43 13:45 14:00 WBC 13.8 H RBC 2.26 L Hgb 6.3 L Hct 20.4 L MCV MCH MCHC RDW 18.3 H Plt Count Lymph % (Auto) [place] % (Auto) Lymph # [place] # 0.9 H Baso # Seg Neutrophils % 78.6 H Seg Neuts % (Manual) Lymphocytes % (Manual) Monocytes % (Manual) Eosinophils % (Manual) Basophils % (Manual) Nucleated RBC % Seg Neutrophils # 10.8 H Seg Neutrophils # Man Lymphocytes # (Manual) Monocytes # (Manual) Eosinophils # (Manual) Basophils # (Manual) PT INR Fibrinogen dRVVT Confirm Interp Factor V Activity POC ABG pH POC ABG pCO2 POC ABG pO2 ABG pO2 ABG HCO3 ABG Base Excess ABG Hemoglobin Oxyhemoglobin Sodium Potassium Chloride Carbon Dioxide BUN Creatinine Glucose POC Glucose 133 H Lactic Acid Calcium Phosphorus Magnesium Direct Bilirubin AST ALT Alkaline Phosphatase Lactate Dehydrogenase Troponin T C-Reactive Protein Total Protein Albumin Prealbumin Triglycerides Cholesterol LDL Cholesterol Direct HDL Cholesterol PTH Intact Urine pH Urine WBC (Auto) Urine Creatinine Urine Total Protein Fluid Total Protein Vancomycin Trough Rheumatoid Factor Complement C4 Miscellaneous Test Crossmatch See Detail 12/29/16 12/29/16 12/29/16 17:03 23:15 23:22 WBC RBC Hgb 7.3 L Hct 22.3 L MCV MCH MCHC RDW Plt Count Lymph % (Auto) [place] % (Auto) Lymph # [place] # Baso # Seg Neutrophils % Seg Neuts % (Manual) Lymphocytes % (Manual) Monocytes % (Manual) Eosinophils % (Manual) Basophils % (Manual) Nucleated RBC % Seg Neutrophils # Seg Neutrophils # Man Lymphocytes # (Manual) Monocytes # (Manual) Eosinophils # (Manual) Basophils # (Manual) PT INR Fibrinogen dRVVT Confirm Interp Factor V Activity POC ABG pH POC ABG pCO2 POC ABG pO2 ABG pO2 ABG HCO3 ABG Base Excess ABG Hemoglobin Oxyhemoglobin Sodium Potassium Chloride Carbon Dioxide BUN Creatinine Glucose POC Glucose 139 H 120 H Lactic Acid Calcium Phosphorus Magnesium Direct Bilirubin AST ALT Alkaline Phosphatase Lactate Dehydrogenase Troponin T C-Reactive Protein Total Protein Albumin Prealbumin Triglycerides Cholesterol LDL Cholesterol Direct HDL Cholesterol PTH Intact Urine pH Urine WBC (Auto) Urine Creatinine Urine Total Protein Fluid Total Protein Vancomycin Trough Rheumatoid Factor Complement C4 Miscellaneous Test Crossmatch 12/30/16 12/30/16 12/30/16 04:20 04:20 05:43 WBC 15.6 H RBC 2.81 L Hgb 8.0 L Hct 24.0 L MCV MCH MCHC RDW 16.9 H Plt Count Lymph % (Auto) [place] % (Auto) Lymph # [place] # 1.0 H Baso # Seg Neutrophils % 76.2 H Seg Neuts % (Manual) Lymphocytes % (Manual) Monocytes % (Manual) Eosinophils % (Manual) Basophils % (Manual) Nucleated RBC % Seg Neutrophils # 11.9 H Seg Neutrophils # Man Lymphocytes # (Manual) Monocytes # (Manual) Eosinophils # (Manual) Basophils # (Manual) PT INR Fibrinogen dRVVT Confirm Interp Factor V Activity POC ABG pH POC ABG pCO2 POC ABG pO2 ABG pO2 ABG HCO3 ABG Base Excess ABG Hemoglobin Oxyhemoglobin Sodium Potassium Chloride Carbon Dioxide BUN 87 H Creatinine 1.8 H Glucose 119 H POC Glucose 115 H Lactic Acid Calcium Phosphorus Magnesium Direct Bilirubin AST ALT Alkaline Phosphatase Lactate Dehydrogenase Troponin T C-Reactive Protein Total Protein Albumin Prealbumin Triglycerides Cholesterol LDL Cholesterol Direct HDL Cholesterol PTH Intact Urine pH Urine WBC (Auto) Urine Creatinine Urine Total Protein Fluid Total Protein Vancomycin Trough Rheumatoid Factor Complement C4 Miscellaneous Test Crossmatch 12/30/16 12/30/16 12/31/16 17:27 23:21 04:00 WBC RBC Hgb Hct MCV MCH MCHC RDW Plt Count Lymph % (Auto) [place] % (Auto) Lymph # [place] # Baso # Seg Neutrophils % Seg Neuts % (Manual) Lymphocytes % (Manual) Monocytes % (Manual) Eosinophils % (Manual) Basophils % (Manual) Nucleated RBC % Seg Neutrophils # Seg Neutrophils # Man Lymphocytes # (Manual) Monocytes # (Manual) Eosinophils # (Manual) Basophils # (Manual) PT INR Fibrinogen dRVVT Confirm Interp Factor V Activity POC ABG pH POC ABG pCO2 POC ABG pO2 ABG pO2 ABG HCO3 ABG Base Excess ABG Hemoglobin Oxyhemoglobin Sodium Potassium Chloride Carbon Dioxide BUN 59 H Creatinine Glucose 298 H POC Glucose 144 H 125 H Lactic Acid Calcium Phosphorus Magnesium Direct Bilirubin AST ALT Alkaline Phosphatase Lactate Dehydrogenase Troponin T C-Reactive Protein Total Protein Albumin Prealbumin Triglycerides Cholesterol LDL Cholesterol Direct HDL Cholesterol PTH Intact Urine pH Urine WBC (Auto) Urine Creatinine Urine Total Protein Fluid Total Protein Vancomycin Trough Rheumatoid Factor Complement C4 Miscellaneous Test Crossmatch 12/31/16 12/31/16 12/31/16 05:11 12:18 18:17 WBC RBC Hgb Hct MCV MCH MCHC RDW Plt Count Lymph % (Auto) [place] % (Auto) Lymph # [place] # Baso # Seg Neutrophils % Seg Neuts % (Manual) Lymphocytes % (Manual) Monocytes % (Manual) Eosinophils % (Manual) Basophils % (Manual) Nucleated RBC % Seg Neutrophils # Seg Neutrophils # Man Lymphocytes # (Manual) Monocytes # (Manual) Eosinophils # (Manual) Basophils # (Manual) PT INR Fibrinogen dRVVT Confirm Interp Factor V Activity POC ABG pH POC ABG pCO2 POC ABG pO2 ABG pO2 ABG HCO3 ABG Base Excess ABG Hemoglobin Oxyhemoglobin Sodium Potassium Chloride Carbon Dioxide BUN Creatinine Glucose POC Glucose 167 H 125 H 133 H Lactic Acid Calcium Phosphorus Magnesium Direct Bilirubin AST ALT Alkaline Phosphatase Lactate Dehydrogenase Troponin T C-Reactive Protein Total Protein Albumin Prealbumin Triglycerides Cholesterol LDL Cholesterol Direct HDL Cholesterol PTH Intact Urine pH Urine WBC (Auto) Urine Creatinine Urine Total Protein Fluid Total Protein Vancomycin Trough Rheumatoid Factor Complement C4 Miscellaneous Test Crossmatch 12/31/16 01/01/17 01/01/17 23:55 05:00 05:12 WBC RBC Hgb Hct MCV MCH MCHC RDW Plt Count Lymph % (Auto) [place] % (Auto) Lymph # [place] # Baso # Seg Neutrophils % Seg Neuts % (Manual) Lymphocytes % (Manual) Monocytes % (Manual) Eosinophils % (Manual) Basophils % (Manual) Nucleated RBC % Seg Neutrophils # Seg Neutrophils # Man Lymphocytes # (Manual) Monocytes # (Manual) Eosinophils # (Manual) Basophils # (Manual) PT INR Fibrinogen dRVVT Confirm Interp Factor V Activity POC ABG pH POC ABG pCO2 POC ABG pO2 ABG pO2 ABG HCO3 ABG Base Excess ABG Hemoglobin Oxyhemoglobin Sodium Potassium Chloride Carbon Dioxide BUN 76 H Creatinine 1.5 H Glucose 109 H POC Glucose 129 H 129 H Lactic Acid Calcium Phosphorus Magnesium Direct Bilirubin AST ALT Alkaline Phosphatase 536 H Lactate Dehydrogenase Troponin T C-Reactive Protein Total Protein Albumin 1.5 L Prealbumin Triglycerides Cholesterol LDL Cholesterol Direct HDL Cholesterol PTH Intact Urine pH Urine WBC (Auto) Urine Creatinine Urine Total Protein Fluid Total Protein Vancomycin Trough Rheumatoid Factor Complement C4 Miscellaneous Test Crossmatch 01/01/17 01/01/17 01/01/17 12:25 17:01 23:32 WBC RBC Hgb Hct MCV MCH MCHC RDW Plt Count Lymph % (Auto) [place] % (Auto) Lymph # [place] # Baso # Seg Neutrophils % Seg Neuts % (Manual) Lymphocytes % (Manual) Monocytes % (Manual) Eosinophils % (Manual) Basophils % (Manual) Nucleated RBC % Seg Neutrophils # Seg Neutrophils # Man Lymphocytes # (Manual) Monocytes # (Manual) Eosinophils # (Manual) Basophils # (Manual) PT INR Fibrinogen dRVVT Confirm Interp Factor V Activity POC ABG pH POC ABG pCO2 POC ABG pO2 ABG pO2 ABG HCO3 ABG Base Excess ABG Hemoglobin Oxyhemoglobin Sodium Potassium Chloride Carbon Dioxide BUN Creatinine Glucose POC Glucose 140 H 142 H 112 H Lactic Acid Calcium Phosphorus Magnesium Direct Bilirubin AST ALT Alkaline Phosphatase Lactate Dehydrogenase Troponin T C-Reactive Protein Total Protein Albumin Prealbumin Triglycerides Cholesterol LDL Cholesterol Direct HDL Cholesterol PTH Intact Urine pH Urine WBC (Auto) Urine Creatinine Urine Total Protein Fluid Total Protein Vancomycin Trough Rheumatoid Factor Complement C4 Miscellaneous Test Crossmatch 01/02/17 01/02/17 01/02/17 04:56 06:00 11:37 WBC RBC Hgb Hct MCV MCH MCHC RDW Plt Count Lymph % (Auto) [place] % (Auto) Lymph # [place] # Baso # Seg Neutrophils % Seg Neuts % (Manual) Lymphocytes % (Manual) Monocytes % (Manual) Eosinophils % (Manual) Basophils % (Manual) Nucleated RBC % Seg Neutrophils # Seg Neutrophils # Man Lymphocytes # (Manual) Monocytes # (Manual) Eosinophils # (Manual) Basophils # (Manual) PT INR Fibrinogen dRVVT Confirm Interp Factor V Activity POC ABG pH POC ABG pCO2 POC ABG pO2 ABG pO2 ABG HCO3 ABG Base Excess ABG Hemoglobin Oxyhemoglobin Sodium Potassium Chloride Carbon Dioxide BUN 88 H Creatinine 1.7 H Glucose 113 H POC Glucose 136 H 200 H Lactic Acid Calcium Phosphorus Magnesium Direct Bilirubin AST ALT Alkaline Phosphatase Lactate Dehydrogenase Troponin T C-Reactive Protein Total Protein Albumin Prealbumin Triglycerides Cholesterol LDL Cholesterol Direct HDL Cholesterol PTH Intact Urine pH Urine WBC (Auto) Urine Creatinine Urine Total Protein Fluid Total Protein Vancomycin Trough Rheumatoid Factor Complement C4 Miscellaneous Test Crossmatch 01/02/17 01/02/17 01/03/17 17:42 22:52 04:54 WBC RBC Hgb Hct MCV MCH MCHC RDW Plt Count Lymph % (Auto) [place] % (Auto) Lymph # [place] # Baso # Seg Neutrophils % Seg Neuts % (Manual) Lymphocytes % (Manual) Monocytes % (Manual) Eosinophils % (Manual) Basophils % (Manual) Nucleated RBC % Seg Neutrophils # Seg Neutrophils # Man Lymphocytes # (Manual) Monocytes # (Manual) Eosinophils # (Manual) Basophils # (Manual) PT INR Fibrinogen dRVVT Confirm Interp Factor V Activity POC ABG pH POC ABG pCO2 POC ABG pO2 ABG pO2 ABG HCO3 ABG Base Excess ABG Hemoglobin Oxyhemoglobin Sodium Potassium Chloride Carbon Dioxide BUN Creatinine Glucose POC Glucose 112 H 133 H 111 H Lactic Acid Calcium Phosphorus Magnesium Direct Bilirubin AST ALT Alkaline Phosphatase Lactate Dehydrogenase Troponin T C-Reactive Protein Total Protein Albumin Prealbumin Triglycerides Cholesterol LDL Cholesterol Direct HDL Cholesterol PTH Intact Urine pH Urine WBC (Auto) Urine Creatinine Urine Total Protein Fluid Total Protein Vancomycin Trough Rheumatoid Factor Complement C4 Miscellaneous Test Crossmatch 01/03/17 01/03/17 01/03/17 05:00 05:00 14:02 WBC 11.2 H RBC 2.56 L Hgb 7.2 L Hct 22.3 L MCV MCH MCHC RDW 17.3 H Plt Count Lymph % (Auto) [place] % (Auto) 10.0 H Lymph # [place] # 1.1 H Baso # Seg Neutrophils % 70.5 H Seg Neuts % (Manual) Lymphocytes % (Manual) Monocytes % (Manual) Eosinophils % (Manual) Basophils % (Manual) Nucleated RBC % Seg Neutrophils # 7.9 H Seg Neutrophils # Man Lymphocytes # (Manual) Monocytes # (Manual) Eosinophils # (Manual) Basophils # (Manual) PT INR Fibrinogen dRVVT Confirm Interp Factor V Activity POC ABG pH POC ABG pCO2 POC ABG pO2 ABG pO2 ABG HCO3 ABG Base Excess ABG Hemoglobin Oxyhemoglobin Sodium Potassium Chloride Carbon Dioxide BUN 60 H Creatinine 1.3 H Glucose 110 H POC Glucose 119 H Lactic Acid Calcium Phosphorus Magnesium Direct Bilirubin AST ALT Alkaline Phosphatase Lactate Dehydrogenase Troponin T C-Reactive Protein Total Protein Albumin Prealbumin Triglycerides Cholesterol LDL Cholesterol Direct HDL Cholesterol PTH Intact Urine pH Urine WBC (Auto) Urine Creatinine Urine Total Protein Fluid Total Protein Vancomycin Trough Rheumatoid Factor Complement C4 Miscellaneous Test Crossmatch 01/03/17 01/03/17 01/04/17 18:13 23:40 05:57 WBC RBC Hgb Hct MCV MCH MCHC RDW Plt Count Lymph % (Auto) [place] % (Auto) Lymph # [place] # Baso # Seg Neutrophils % Seg Neuts % (Manual) Lymphocytes % (Manual) Monocytes % (Manual) Eosinophils % (Manual) Basophils % (Manual) Nucleated RBC % Seg Neutrophils # Seg Neutrophils # Man Lymphocytes # (Manual) Monocytes # (Manual) Eosinophils # (Manual) Basophils # (Manual) PT INR Fibrinogen dRVVT Confirm Interp Factor V Activity POC ABG pH POC ABG pCO2 POC ABG pO2 ABG pO2 ABG HCO3 ABG Base Excess ABG Hemoglobin Oxyhemoglobin Sodium Potassium Chloride Carbon Dioxide BUN Creatinine Glucose POC Glucose 107 H 129 H 111 H Lactic Acid Calcium Phosphorus Magnesium Direct Bilirubin AST ALT Alkaline Phosphatase Lactate Dehydrogenase Troponin T C-Reactive Protein Total Protein Albumin Prealbumin Triglycerides Cholesterol LDL Cholesterol Direct HDL Cholesterol PTH Intact Urine pH Urine WBC (Auto) Urine Creatinine Urine Total Protein Fluid Total Protein Vancomycin Trough Rheumatoid Factor Complement C4 Miscellaneous Test Crossmatch 01/04/17 01/04/17 01/04/17 12:46 15:27 17:11 WBC RBC Hgb Hct MCV MCH MCHC RDW Plt Count Lymph % (Auto) [place] % (Auto) Lymph # [place] # Baso # Seg Neutrophils % Seg Neuts % (Manual) Lymphocytes % (Manual) Monocytes % (Manual) Eosinophils % (Manual) Basophils % (Manual) Nucleated RBC % Seg Neutrophils # Seg Neutrophils # Man Lymphocytes # (Manual) Monocytes # (Manual) Eosinophils # (Manual) Basophils # (Manual) PT INR Fibrinogen dRVVT Confirm Interp Factor V Activity POC ABG pH POC ABG pCO2 POC ABG pO2 ABG pO2 ABG HCO3 ABG Base Excess ABG Hemoglobin Oxyhemoglobin Sodium Potassium Chloride Carbon Dioxide BUN 43 H Creatinine Glucose 124 H POC Glucose 159 H 125 H Lactic Acid Calcium 8.0 L Phosphorus 2.10 L Magnesium Direct Bilirubin AST ALT Alkaline Phosphatase Lactate Dehydrogenase Troponin T C-Reactive Protein Total Protein Albumin Prealbumin Triglycerides Cholesterol LDL Cholesterol Direct HDL Cholesterol PTH Intact Urine pH Urine WBC (Auto) Urine Creatinine Urine Total Protein Fluid Total Protein Vancomycin Trough Rheumatoid Factor Complement C4 Miscellaneous Test Crossmatch 01/04/17 01/05/17 01/05/17 23:31 04:00 05:46 WBC RBC Hgb Hct MCV MCH MCHC RDW Plt Count Lymph % (Auto) [place] % (Auto) Lymph # [place] # Baso # Seg Neutrophils % Seg Neuts % (Manual) Lymphocytes % (Manual) Monocytes % (Manual) Eosinophils % (Manual) Basophils % (Manual) Nucleated RBC % Seg Neutrophils # Seg Neutrophils # Man Lymphocytes # (Manual) Monocytes # (Manual) Eosinophils # (Manual) Basophils # (Manual) PT INR Fibrinogen dRVVT Confirm Interp Factor V Activity POC ABG pH POC ABG pCO2 POC ABG pO2 ABG pO2 ABG HCO3 ABG Base Excess ABG Hemoglobin Oxyhemoglobin Sodium Potassium Chloride Carbon Dioxide BUN 52 H Creatinine 1.3 H Glucose 113 H POC Glucose 123 H 118 H Lactic Acid Calcium Phosphorus 2.40 L Magnesium Direct Bilirubin AST ALT Alkaline Phosphatase Lactate Dehydrogenase Troponin T C-Reactive Protein Total Protein Albumin Prealbumin Triglycerides Cholesterol LDL Cholesterol Direct HDL Cholesterol PTH Intact Urine pH Urine WBC (Auto) Urine Creatinine Urine Total Protein Fluid Total Protein Vancomycin Trough Rheumatoid Factor Complement C4 Miscellaneous Test Crossmatch 01/05/17 01/05/17 01/05/17 11:41 17:48 23:27 WBC RBC Hgb Hct MCV MCH MCHC RDW Plt Count Lymph % (Auto) [place] % (Auto) Lymph # [place] # Baso # Seg Neutrophils % Seg Neuts % (Manual) Lymphocytes % (Manual) Monocytes % (Manual) Eosinophils % (Manual) Basophils % (Manual) Nucleated RBC % Seg Neutrophils # Seg Neutrophils # Man Lymphocytes # (Manual) Monocytes # (Manual) Eosinophils # (Manual) Basophils # (Manual) PT INR Fibrinogen dRVVT Confirm Interp Factor V Activity POC ABG pH POC ABG pCO2 POC ABG pO2 ABG pO2 ABG HCO3 ABG Base Excess ABG Hemoglobin Oxyhemoglobin Sodium Potassium Chloride Carbon Dioxide BUN Creatinine Glucose POC Glucose 163 H 142 H 155 H Lactic Acid Calcium Phosphorus Magnesium Direct Bilirubin AST ALT Alkaline Phosphatase Lactate Dehydrogenase Troponin T C-Reactive Protein Total Protein Albumin Prealbumin Triglycerides Cholesterol LDL Cholesterol Direct HDL Cholesterol PTH Intact Urine pH Urine WBC (Auto) Urine Creatinine Urine Total Protein Fluid Total Protein Vancomycin Trough Rheumatoid Factor Complement C4 Miscellaneous Test Crossmatch 01/06/17 01/06/17 01/06/17 05:20 07:35 11:18 WBC RBC Hgb Hct MCV MCH MCHC RDW Plt Count Lymph % (Auto) [place] % (Auto) Lymph # [place] # Baso # Seg Neutrophils % Seg Neuts % (Manual) Lymphocytes % (Manual) Monocytes % (Manual) Eosinophils % (Manual) Basophils % (Manual) Nucleated RBC % Seg Neutrophils # Seg Neutrophils # Man Lymphocytes # (Manual) Monocytes # (Manual) Eosinophils # (Manual) Basophils # (Manual) PT INR Fibrinogen dRVVT Confirm Interp Factor V Activity POC ABG pH POC ABG pCO2 POC ABG pO2 ABG pO2 ABG HCO3 ABG Base Excess ABG Hemoglobin Oxyhemoglobin Sodium Potassium Chloride Carbon Dioxide BUN 74 H Creatinine 1.6 H Glucose 135 H POC Glucose 108 H 149 H Lactic Acid Calcium Phosphorus Magnesium Direct Bilirubin AST ALT Alkaline Phosphatase Lactate Dehydrogenase Troponin T C-Reactive Protein Total Protein Albumin Prealbumin Triglycerides Cholesterol LDL Cholesterol Direct HDL Cholesterol PTH Intact Urine pH Urine WBC (Auto) Urine Creatinine Urine Total Protein Fluid Total Protein Vancomycin Trough Rheumatoid Factor Complement C4 Miscellaneous Test Crossmatch 01/06/17 01/07/17 01/07/17 17:17 00:23 05:31 WBC RBC Hgb Hct MCV MCH MCHC RDW Plt Count Lymph % (Auto) [place] % (Auto) Lymph # [place] # Baso # Seg Neutrophils % Seg Neuts % (Manual) Lymphocytes % (Manual) Monocytes % (Manual) Eosinophils % (Manual) Basophils % (Manual) Nucleated RBC % Seg Neutrophils # Seg Neutrophils # Man Lymphocytes # (Manual) Monocytes # (Manual) Eosinophils # (Manual) Basophils # (Manual) PT INR Fibrinogen dRVVT Confirm Interp Factor V Activity POC ABG pH POC ABG pCO2 POC ABG pO2 ABG pO2 ABG HCO3 ABG Base Excess ABG Hemoglobin Oxyhemoglobin Sodium Potassium Chloride Carbon Dioxide BUN Creatinine Glucose POC Glucose 146 H 165 H 153 H Lactic Acid Calcium Phosphorus Magnesium Direct Bilirubin AST ALT Alkaline Phosphatase Lactate Dehydrogenase Troponin T C-Reactive Protein Total Protein Albumin Prealbumin Triglycerides Cholesterol LDL Cholesterol Direct HDL Cholesterol PTH Intact Urine pH Urine WBC (Auto) Urine Creatinine Urine Total Protein Fluid Total Protein Vancomycin Trough Rheumatoid Factor Complement C4 Miscellaneous Test Crossmatch 01/07/17 01/07/17 01/07/17 06:00 11:39 17:11 WBC RBC Hgb Hct MCV MCH MCHC RDW Plt Count Lymph % (Auto) [place] % (Auto) Lymph # [place] # Baso # Seg Neutrophils % Seg Neuts % (Manual) Lymphocytes % (Manual) Monocytes % (Manual) Eosinophils % (Manual) Basophils % (Manual) Nucleated RBC % Seg Neutrophils # Seg Neutrophils # Man Lymphocytes # (Manual) Monocytes # (Manual) Eosinophils # (Manual) Basophils # (Manual) PT INR Fibrinogen dRVVT Confirm Interp Factor V Activity POC ABG pH POC ABG pCO2 POC ABG pO2 ABG pO2 ABG HCO3 ABG Base Excess ABG Hemoglobin Oxyhemoglobin Sodium Potassium Chloride Carbon Dioxide BUN 42 H Creatinine Glucose 175 H POC Glucose 163 H 163 H Lactic Acid Calcium Phosphorus 2.40 L D Magnesium Direct Bilirubin AST ALT Alkaline Phosphatase Lactate Dehydrogenase Troponin T C-Reactive Protein Total Protein Albumin Prealbumin Triglycerides Cholesterol LDL Cholesterol Direct HDL Cholesterol PTH Intact Urine pH Urine WBC (Auto) Urine Creatinine Urine Total Protein Fluid Total Protein Vancomycin Trough Rheumatoid Factor Complement C4 Miscellaneous Test Crossmatch 01/07/17 01/08/17 01/08/17 23:40 05:00 05:00 WBC 27.4 H RBC 2.27 L Hgb 6.1 L Hct 20.4 L MCV MCH 27 L MCHC RDW 17.8 H Plt Count Lymph % (Auto) [place] % (Auto) Lymph # [place] # Baso # Seg Neutrophils % Seg Neuts % (Manual) Lymphocytes % (Manual) Monocytes % (Manual) Eosinophils % (Manual) Basophils % (Manual) Nucleated RBC % Seg Neutrophils # Seg Neutrophils # Man Lymphocytes # (Manual) Monocytes # (Manual) Eosinophils # (Manual) Basophils # (Manual) PT INR Fibrinogen dRVVT Confirm Interp Factor V Activity POC ABG pH POC ABG pCO2 POC ABG pO2 ABG pO2 ABG HCO3 ABG Base Excess ABG Hemoglobin Oxyhemoglobin Sodium Potassium Chloride Carbon Dioxide 16 L D BUN 62 H Creatinine 1.6 H D Glucose 103 H POC Glucose 135 H Lactic Acid Calcium Phosphorus Magnesium Direct Bilirubin AST ALT Alkaline Phosphatase Lactate Dehydrogenase Troponin T C-Reactive Protein Total Protein Albumin Prealbumin Triglycerides Cholesterol LDL Cholesterol Direct HDL Cholesterol PTH Intact Urine pH Urine WBC (Auto) Urine Creatinine Urine Total Protein Fluid Total Protein Vancomycin Trough Rheumatoid Factor Complement C4 Miscellaneous Test Crossmatch 01/08/17 01/08/17 01/08/17 05:25 10:37 10:37 WBC RBC Hgb Hct MCV MCH MCHC RDW Plt Count Lymph % (Auto) [place] % (Auto) Lymph # [place] # Baso # Seg Neutrophils % Seg Neuts % (Manual) Lymphocytes % (Manual) Monocytes % (Manual) Eosinophils % (Manual) Basophils % (Manual) Nucleated RBC % Seg Neutrophils # Seg Neutrophils # Man Lymphocytes # (Manual) Monocytes # (Manual) Eosinophils # (Manual) Basophils # (Manual) PT INR Fibrinogen dRVVT Confirm Interp Factor V Activity POC ABG pH POC ABG pCO2 POC ABG pO2 ABG pO2 ABG HCO3 ABG Base Excess ABG Hemoglobin Oxyhemoglobin Sodium Potassium Chloride Carbon Dioxide BUN Creatinine Glucose POC Glucose 106 H Lactic Acid Calcium Phosphorus Magnesium Direct Bilirubin AST ALT Alkaline Phosphatase Lactate Dehydrogenase Troponin T C-Reactive Protein 24.40 H Total Protein Albumin Prealbumin Triglycerides Cholesterol LDL Cholesterol Direct HDL Cholesterol PTH Intact Urine pH Urine WBC (Auto) Urine Creatinine Urine Total Protein Fluid Total Protein Vancomycin Trough Rheumatoid Factor Complement C4 Miscellaneous Test Crossmatch See Detail 01/08/17 01/08/17 01/08/17 10:37 11:33 15:15 WBC RBC Hgb Hct MCV MCH MCHC RDW Plt Count Lymph % (Auto) [place] % (Auto) Lymph # [place] # Baso # Seg Neutrophils % Seg Neuts % (Manual) Lymphocytes % (Manual) Monocytes % (Manual) Eosinophils % (Manual) Basophils % (Manual) Nucleated RBC % Seg Neutrophils # Seg Neutrophils # Man Lymphocytes # (Manual) Monocytes # (Manual) Eosinophils # (Manual) Basophils # (Manual) PT INR Fibrinogen dRVVT Confirm Interp Factor V Activity POC ABG pH POC ABG pCO2 POC ABG pO2 ABG pO2 ABG HCO3 ABG Base Excess ABG Hemoglobin Oxyhemoglobin Sodium Potassium Chloride Carbon Dioxide BUN Creatinine Glucose POC Glucose 157 H Lactic Acid 9.70 H* 9.10 H* Calcium Phosphorus Magnesium Direct Bilirubin AST ALT Alkaline Phosphatase Lactate Dehydrogenase Troponin T C-Reactive Protein Total Protein Albumin Prealbumin Triglycerides Cholesterol LDL Cholesterol Direct HDL Cholesterol PTH Intact Urine pH Urine WBC (Auto) Urine Creatinine Urine Total Protein Fluid Total Protein Vancomycin Trough Rheumatoid Factor Complement C4 Miscellaneous Test Crossmatch 01/08/17 01/08/17 01/09/17 17:19 23:12 04:40 WBC RBC Hgb Hct MCV MCH MCHC RDW Plt Count Lymph % (Auto) [place] % (Auto) Lymph # [place] # Baso # Seg Neutrophils % Seg Neuts % (Manual) Lymphocytes % (Manual) Monocytes % (Manual) Eosinophils % (Manual) Basophils % (Manual) Nucleated RBC % Seg Neutrophils # Seg Neutrophils # Man Lymphocytes # (Manual) Monocytes # (Manual) Eosinophils # (Manual) Basophils # (Manual) PT INR Fibrinogen dRVVT Confirm Interp Factor V Activity POC ABG pH POC ABG pCO2 POC ABG pO2 ABG pO2 ABG HCO3 ABG Base Excess ABG Hemoglobin Oxyhemoglobin Sodium 147 H Potassium Chloride Carbon Dioxide BUN 82 H Creatinine 1.8 H Glucose 137 H POC Glucose 164 H 157 H Lactic Acid Calcium Phosphorus Magnesium Direct Bilirubin AST ALT Alkaline Phosphatase Lactate Dehydrogenase Troponin T C-Reactive Protein Total Protein Albumin Prealbumin Triglycerides Cholesterol LDL Cholesterol Direct HDL Cholesterol PTH Intact Urine pH Urine WBC (Auto) Urine Creatinine Urine Total Protein Fluid Total Protein Vancomycin Trough Rheumatoid Factor Complement C4 Miscellaneous Test Crossmatch 01/09/17 01/09/17 01/09/17 05:42 08:22 10:57 WBC RBC Hgb Hct MCV MCH MCHC RDW Plt Count Lymph % (Auto) [place] % (Auto) Lymph # [place] # Baso # Seg Neutrophils % Seg Neuts % (Manual) Lymphocytes % (Manual) Monocytes % (Manual) Eosinophils % (Manual) Basophils % (Manual) Nucleated RBC % Seg Neutrophils # Seg Neutrophils # Man Lymphocytes # (Manual) Monocytes # (Manual) Eosinophils # (Manual) Basophils # (Manual) PT INR Fibrinogen dRVVT Confirm Interp Factor V Activity POC ABG pH POC ABG pCO2 POC ABG pO2 ABG pO2 ABG HCO3 ABG Base Excess ABG Hemoglobin Oxyhemoglobin Sodium Potassium Chloride Carbon Dioxide BUN Creatinine Glucose POC Glucose 156 H 122 H Lactic Acid 2.30 H* Calcium Phosphorus Magnesium Direct Bilirubin AST ALT Alkaline Phosphatase Lactate Dehydrogenase Troponin T C-Reactive Protein Total Protein Albumin Prealbumin Triglycerides Cholesterol LDL Cholesterol Direct HDL Cholesterol PTH Intact Urine pH Urine WBC (Auto) Urine Creatinine Urine Total Protein Fluid Total Protein Vancomycin Trough Rheumatoid Factor Complement C4 Miscellaneous Test Crossmatch 01/09/17 01/09/17 01/09/17 13:30 17:14 18:45 WBC RBC Hgb Hct MCV MCH MCHC RDW Plt Count Lymph % (Auto) [place] % (Auto) Lymph # [place] # Baso # Seg Neutrophils % Seg Neuts % (Manual) Lymphocytes % (Manual) Monocytes % (Manual) Eosinophils % (Manual) Basophils % (Manual) Nucleated RBC % Seg Neutrophils # Seg Neutrophils # Man Lymphocytes # (Manual) Monocytes # (Manual) Eosinophils # (Manual) Basophils # (Manual) PT INR Fibrinogen dRVVT Confirm Interp Factor V Activity POC ABG pH POC ABG pCO2 POC ABG pO2 ABG pO2 ABG HCO3 ABG Base Excess ABG Hemoglobin Oxyhemoglobin Sodium Potassium Chloride Carbon Dioxide BUN Creatinine Glucose POC Glucose 127 H Lactic Acid Calcium Phosphorus Magnesium Direct Bilirubin AST ALT Alkaline Phosphatase Lactate Dehydrogenase Troponin T C-Reactive Protein 24.70 H Total Protein Albumin Prealbumin Triglycerides Cholesterol LDL Cholesterol Direct HDL Cholesterol PTH Intact Urine pH Urine WBC (Auto) Urine Creatinine Urine Total Protein Fluid Total Protein Vancomycin Trough Rheumatoid Factor Complement C4 Miscellaneous Test Flexitest 1 H Crossmatch 01/10/17 01/10/17 01/10/17 01:21 04:00 04:00 WBC 18.1 H RBC 3.22 L Hgb 8.8 L Hct 27.0 L D MCV MCH 27 L MCHC RDW 17.0 H Plt Count Lymph % (Auto) [place] % (Auto) Lymph # [place] # Baso # Seg Neutrophils % Seg Neuts % (Manual) Lymphocytes % (Manual) Monocytes % (Manual) Eosinophils % (Manual) Basophils % (Manual) Nucleated RBC % Seg Neutrophils # Seg Neutrophils # Man Lymphocytes # (Manual) Monocytes # (Manual) Eosinophils # (Manual) Basophils # (Manual) PT INR Fibrinogen dRVVT Confirm Interp Factor V Activity POC ABG pH POC ABG pCO2 POC ABG pO2 ABG pO2 ABG HCO3 ABG Base Excess ABG Hemoglobin Oxyhemoglobin Sodium Potassium Chloride Carbon Dioxide BUN 59 H Creatinine 1.3 H Glucose 122 H POC Glucose 160 H Lactic Acid Calcium Phosphorus Magnesium Direct Bilirubin AST ALT Alkaline Phosphatase Lactate Dehydrogenase Troponin T C-Reactive Protein Total Protein Albumin Prealbumin Triglycerides Cholesterol LDL Cholesterol Direct HDL Cholesterol PTH Intact Urine pH Urine WBC (Auto) Urine Creatinine Urine Total Protein Fluid Total Protein Vancomycin Trough Rheumatoid Factor Complement C4 Miscellaneous Test Crossmatch 01/10/17 01/10/17 01/10/17 05:36 12:14 17:55 WBC RBC Hgb Hct MCV MCH MCHC RDW Plt Count Lymph % (Auto) [place] % (Auto) Lymph # [place] # Baso # Seg Neutrophils % Seg Neuts % (Manual) Lymphocytes % (Manual) Monocytes % (Manual) Eosinophils % (Manual) Basophils % (Manual) Nucleated RBC % Seg Neutrophils # Seg Neutrophils # Man Lymphocytes # (Manual) Monocytes # (Manual) Eosinophils # (Manual) Basophils # (Manual) PT INR Fibrinogen dRVVT Confirm Interp Factor V Activity POC ABG pH POC ABG pCO2 POC ABG pO2 ABG pO2 ABG HCO3 ABG Base Excess ABG Hemoglobin Oxyhemoglobin Sodium Potassium Chloride Carbon Dioxide BUN Creatinine Glucose POC Glucose 163 H 120 H 144 H Lactic Acid Calcium Phosphorus Magnesium Direct Bilirubin AST ALT Alkaline Phosphatase Lactate Dehydrogenase Troponin T C-Reactive Protein Total Protein Albumin Prealbumin Triglycerides Cholesterol LDL Cholesterol Direct HDL Cholesterol PTH Intact Urine pH Urine WBC (Auto) Urine Creatinine Urine Total Protein Fluid Total Protein Vancomycin Trough Rheumatoid Factor Complement C4 Miscellaneous Test Crossmatch 01/11/17 01/11/17 01/11/17 00:09 04:00 04:00 WBC 15.8 H RBC 3.04 L Hgb 8.2 L Hct 25.5 L MCV MCH 27 L MCHC RDW 17.3 H Plt Count Lymph % (Auto) [place] % (Auto) Lymph # [place] # Baso # Seg Neutrophils % Seg Neuts % (Manual) Lymphocytes % (Manual) Monocytes % (Manual) Eosinophils % (Manual) Basophils % (Manual) Nucleated RBC % Seg Neutrophils # Seg Neutrophils # Man Lymphocytes # (Manual) Monocytes # (Manual) Eosinophils # (Manual) Basophils # (Manual) PT INR Fibrinogen dRVVT Confirm Interp Factor V Activity POC ABG pH POC ABG pCO2 POC ABG pO2 ABG pO2 ABG HCO3 ABG Base Excess ABG Hemoglobin Oxyhemoglobin Sodium Potassium Chloride Carbon Dioxide BUN 78 H Creatinine 1.6 H Glucose 109 H POC Glucose 122 H Lactic Acid Calcium Phosphorus Magnesium Direct Bilirubin AST ALT Alkaline Phosphatase Lactate Dehydrogenase Troponin T C-Reactive Protein Total Protein Albumin Prealbumin Triglycerides Cholesterol LDL Cholesterol Direct HDL Cholesterol PTH Intact Urine pH Urine WBC (Auto) Urine Creatinine Urine Total Protein Fluid Total Protein Vancomycin Trough Rheumatoid Factor Complement C4 Miscellaneous Test Crossmatch 01/11/17 01/11/17 01/11/17 12:46 18:23 23:42 WBC RBC Hgb Hct MCV MCH MCHC RDW Plt Count Lymph % (Auto) [place] % (Auto) Lymph # [place] # Baso # Seg Neutrophils % Seg Neuts % (Manual) Lymphocytes % (Manual) Monocytes % (Manual) Eosinophils % (Manual) Basophils % (Manual) Nucleated RBC % Seg Neutrophils # Seg Neutrophils # Man Lymphocytes # (Manual) Monocytes # (Manual) Eosinophils # (Manual) Basophils # (Manual) PT INR Fibrinogen dRVVT Confirm Interp Factor V Activity POC ABG pH POC ABG pCO2 POC ABG pO2 ABG pO2 ABG HCO3 ABG Base Excess ABG Hemoglobin Oxyhemoglobin Sodium Potassium Chloride Carbon Dioxide BUN Creatinine Glucose POC Glucose 148 H 125 H 124 H Lactic Acid Calcium Phosphorus Magnesium Direct Bilirubin AST ALT Alkaline Phosphatase Lactate Dehydrogenase Troponin T C-Reactive Protein Total Protein Albumin Prealbumin Triglycerides Cholesterol LDL Cholesterol Direct HDL Cholesterol PTH Intact Urine pH Urine WBC (Auto) Urine Creatinine Urine Total Protein Fluid Total Protein Vancomycin Trough Rheumatoid Factor Complement C4 Miscellaneous Test Crossmatch 01/12/17 01/12/17 01/12/17 04:30 04:30 05:47 WBC 15.8 H RBC 3.31 L Hgb 8.9 L Hct 27.9 L MCV MCH 27 L MCHC RDW 17.4 H Plt Count Lymph % (Auto) [place] % (Auto) Lymph # [place] # Baso # Seg Neutrophils % Seg Neuts % (Manual) Lymphocytes % (Manual) Monocytes % (Manual) Eosinophils % (Manual) Basophils % (Manual) Nucleated RBC % Seg Neutrophils # Seg Neutrophils # Man Lymphocytes # (Manual) Monocytes # (Manual) Eosinophils # (Manual) Basophils # (Manual) PT INR Fibrinogen dRVVT Confirm Interp Factor V Activity POC ABG pH POC ABG pCO2 POC ABG pO2 ABG pO2 ABG HCO3 ABG Base Excess ABG Hemoglobin Oxyhemoglobin Sodium Potassium Chloride Carbon Dioxide BUN 57 H Creatinine Glucose 121 H POC Glucose 110 H Lactic Acid Calcium Phosphorus 2.10 L Magnesium Direct Bilirubin AST ALT Alkaline Phosphatase Lactate Dehydrogenase Troponin T C-Reactive Protein Total Protein Albumin Prealbumin Triglycerides Cholesterol LDL Cholesterol Direct HDL Cholesterol PTH Intact Urine pH Urine WBC (Auto) Urine Creatinine Urine Total Protein Fluid Total Protein Vancomycin Trough Rheumatoid Factor Complement C4 Miscellaneous Test Crossmatch 01/12/17 01/12/17 01/12/17 11:35 17:45 23:14 WBC RBC Hgb Hct MCV MCH MCHC RDW Plt Count Lymph % (Auto) [place] % (Auto) Lymph # [place] # Baso # Seg Neutrophils % Seg Neuts % (Manual) Lymphocytes % (Manual) Monocytes % (Manual) Eosinophils % (Manual) Basophils % (Manual) Nucleated RBC % Seg Neutrophils # Seg Neutrophils # Man Lymphocytes # (Manual) Monocytes # (Manual) Eosinophils # (Manual) Basophils # (Manual) PT INR Fibrinogen dRVVT Confirm Interp Factor V Activity POC ABG pH POC ABG pCO2 POC ABG pO2 ABG pO2 ABG HCO3 ABG Base Excess ABG Hemoglobin Oxyhemoglobin Sodium Potassium Chloride Carbon Dioxide BUN Creatinine Glucose POC Glucose 146 H 117 H 123 H Lactic Acid Calcium Phosphorus Magnesium Direct Bilirubin AST ALT Alkaline Phosphatase Lactate Dehydrogenase Troponin T C-Reactive Protein Total Protein Albumin Prealbumin Triglycerides Cholesterol LDL Cholesterol Direct HDL Cholesterol PTH Intact Urine pH Urine WBC (Auto) Urine Creatinine Urine Total Protein Fluid Total Protein Vancomycin Trough Rheumatoid Factor Complement C4 Miscellaneous Test Crossmatch 01/13/17 01/13/17 01/13/17 05:32 06:00 12:10 WBC RBC Hgb Hct MCV MCH MCHC RDW Plt Count Lymph % (Auto) [place] % (Auto) Lymph # [place] # Baso # Seg Neutrophils % Seg Neuts % (Manual) Lymphocytes % (Manual) Monocytes % (Manual) Eosinophils % (Manual) Basophils % (Manual) Nucleated RBC % Seg Neutrophils # Seg Neutrophils # Man Lymphocytes # (Manual) Monocytes # (Manual) Eosinophils # (Manual) Basophils # (Manual) PT INR Fibrinogen dRVVT Confirm Interp Factor V Activity POC ABG pH POC ABG pCO2 POC ABG pO2 ABG pO2 ABG HCO3 ABG Base Excess ABG Hemoglobin Oxyhemoglobin Sodium Potassium Chloride Carbon Dioxide BUN 80 H Creatinine 1.4 H Glucose 106 H POC Glucose 106 H Lactic Acid Calcium Phosphorus Magnesium Direct Bilirubin AST ALT Alkaline Phosphatase Lactate Dehydrogenase Troponin T C-Reactive Protein Total Protein Albumin Prealbumin Triglycerides Cholesterol LDL Cholesterol Direct HDL Cholesterol PTH Intact Urine pH Urine WBC (Auto) Urine Creatinine Urine Total Protein Fluid Total Protein 3.0 L Vancomycin Trough Rheumatoid Factor Complement C4 Miscellaneous Test Crossmatch 01/13/17 01/13/17 01/13/17 12:17 15:50 17:30 WBC RBC Hgb Hct MCV MCH MCHC RDW Plt Count Lymph % (Auto) [place] % (Auto) Lymph # [place] # Baso # Seg Neutrophils % Seg Neuts % (Manual) Lymphocytes % (Manual) Monocytes % (Manual) Eosinophils % (Manual) Basophils % (Manual) Nucleated RBC % Seg Neutrophils # Seg Neutrophils # Man Lymphocytes # (Manual) Monocytes # (Manual) Eosinophils # (Manual) Basophils # (Manual) PT 15.4 H INR 1.16 H Fibrinogen dRVVT Confirm Interp Factor V Activity POC ABG pH POC ABG pCO2 POC ABG pO2 ABG pO2 ABG HCO3 ABG Base Excess ABG Hemoglobin Oxyhemoglobin Sodium Potassium Chloride Carbon Dioxide BUN Creatinine Glucose POC Glucose 168 H 110 H Lactic Acid Calcium Phosphorus Magnesium Direct Bilirubin AST ALT Alkaline Phosphatase Lactate Dehydrogenase Troponin T C-Reactive Protein Total Protein Albumin Prealbumin Triglycerides Cholesterol LDL Cholesterol Direct HDL Cholesterol PTH Intact Urine pH Urine WBC (Auto) Urine Creatinine Urine Total Protein Fluid Total Protein Vancomycin Trough Rheumatoid Factor Complement C4 Miscellaneous Test Crossmatch 01/13/17 01/14/17 01/14/17 23:42 05:24 05:30 WBC RBC Hgb Hct MCV MCH MCHC RDW Plt Count Lymph % (Auto) [place] % (Auto) Lymph # [place] # Baso # Seg Neutrophils % Seg Neuts % (Manual) Lymphocytes % (Manual) Monocytes % (Manual) Eosinophils % (Manual) Basophils % (Manual) Nucleated RBC % Seg Neutrophils # Seg Neutrophils # Man Lymphocytes # (Manual) Monocytes # (Manual) Eosinophils # (Manual) Basophils # (Manual) PT INR Fibrinogen dRVVT Confirm Interp Factor V Activity POC ABG pH POC ABG pCO2 POC ABG pO2 ABG pO2 ABG HCO3 ABG Base Excess ABG Hemoglobin Oxyhemoglobin Sodium Potassium Chloride Carbon Dioxide BUN 58 H Creatinine Glucose 114 H POC Glucose 155 H 121 H Lactic Acid Calcium Phosphorus Magnesium Direct Bilirubin AST ALT Alkaline Phosphatase Lactate Dehydrogenase Troponin T C-Reactive Protein Total Protein Albumin Prealbumin Triglycerides Cholesterol LDL Cholesterol Direct HDL Cholesterol PTH Intact Urine pH Urine WBC (Auto) Urine Creatinine Urine Total Protein Fluid Total Protein Vancomycin Trough Rheumatoid Factor Complement C4 Miscellaneous Test Crossmatch 01/14/17 01/14/17 01/15/17 12:48 17:36 00:15 WBC RBC Hgb Hct MCV MCH MCHC RDW Plt Count Lymph % (Auto) [place] % (Auto) Lymph # [place] # Baso # Seg Neutrophils % Seg Neuts % (Manual) Lymphocytes % (Manual) Monocytes % (Manual) Eosinophils % (Manual) Basophils % (Manual) Nucleated RBC % Seg Neutrophils # Seg Neutrophils # Man Lymphocytes # (Manual) Monocytes # (Manual) Eosinophils # (Manual) Basophils # (Manual) PT INR Fibrinogen dRVVT Confirm Interp Factor V Activity POC ABG pH POC ABG pCO2 POC ABG pO2 ABG pO2 ABG HCO3 ABG Base Excess ABG Hemoglobin Oxyhemoglobin Sodium Potassium Chloride Carbon Dioxide BUN Creatinine Glucose POC Glucose 130 H 135 H 132 H Lactic Acid Calcium Phosphorus Magnesium Direct Bilirubin AST ALT Alkaline Phosphatase Lactate Dehydrogenase Troponin T C-Reactive Protein Total Protein Albumin Prealbumin Triglycerides Cholesterol LDL Cholesterol Direct HDL Cholesterol PTH Intact Urine pH Urine WBC (Auto) Urine Creatinine Urine Total Protein Fluid Total Protein Vancomycin Trough Rheumatoid Factor Complement C4 Miscellaneous Test Crossmatch 01/15/17 01/15/17 01/15/17 05:01 11:55 12:45 WBC 16.2 H RBC 3.00 L Hgb 8.1 L Hct 25.4 L MCV MCH 27 L MCHC RDW 17.6 H Plt Count Lymph % (Auto) 11.7 L [place] % (Auto) 7.8 H Lymph # [place] # 1.3 H Baso # Seg Neutrophils % 80.1 H Seg Neuts % (Manual) Lymphocytes % (Manual) Monocytes % (Manual) Eosinophils % (Manual) Basophils % (Manual) Nucleated RBC % Seg Neutrophils # 13.0 H Seg Neutrophils # Man Lymphocytes # (Manual) Monocytes # (Manual) Eosinophils # (Manual) Basophils # (Manual) PT INR Fibrinogen dRVVT Confirm Interp Factor V Activity POC ABG pH POC ABG pCO2 POC ABG pO2 ABG pO2 ABG HCO3 ABG Base Excess ABG Hemoglobin Oxyhemoglobin Sodium Potassium Chloride Carbon Dioxide BUN Creatinine Glucose POC Glucose 126 H 125 H Lactic Acid Calcium Phosphorus Magnesium Direct Bilirubin AST ALT Alkaline Phosphatase Lactate Dehydrogenase Troponin T C-Reactive Protein Total Protein Albumin Prealbumin Triglycerides Cholesterol LDL Cholesterol Direct HDL Cholesterol PTH Intact Urine pH Urine WBC (Auto) Urine Creatinine Urine Total Protein Fluid Total Protein Vancomycin Trough Rheumatoid Factor Complement C4 Miscellaneous Test Crossmatch 01/15/17 01/15/17 01/15/17 12:45 17:31 23:39 WBC RBC Hgb Hct MCV MCH MCHC RDW Plt Count Lymph % (Auto) [place] % (Auto) Lymph # [place] # Baso # Seg Neutrophils % Seg Neuts % (Manual) Lymphocytes % (Manual) Monocytes % (Manual) Eosinophils % (Manual) Basophils % (Manual) Nucleated RBC % Seg Neutrophils # Seg Neutrophils # Man Lymphocytes # (Manual) Monocytes # (Manual) Eosinophils # (Manual) Basophils # (Manual) PT INR Fibrinogen dRVVT Confirm Interp Factor V Activity POC ABG pH POC ABG pCO2 POC ABG pO2 ABG pO2 ABG HCO3 ABG Base Excess ABG Hemoglobin Oxyhemoglobin Sodium 136 L Potassium Chloride Carbon Dioxide BUN 87 H Creatinine 1.7 H Glucose 108 H POC Glucose 129 H 112 H Lactic Acid Calcium Phosphorus Magnesium Direct Bilirubin AST ALT Alkaline Phosphatase Lactate Dehydrogenase Troponin T C-Reactive Protein Total Protein Albumin Prealbumin Triglycerides Cholesterol LDL Cholesterol Direct HDL Cholesterol PTH Intact Urine pH Urine WBC (Auto) Urine Creatinine Urine Total Protein Fluid Total Protein Vancomycin Trough Rheumatoid Factor Complement C4 Miscellaneous Test Crossmatch 01/16/17 01/16/17 01/16/17 05:23 11:42 12:32 WBC RBC Hgb Hct MCV MCH MCHC RDW Plt Count Lymph % (Auto) [place] % (Auto) Lymph # [place] # Baso # Seg Neutrophils % Seg Neuts % (Manual) Lymphocytes % (Manual) Monocytes % (Manual) Eosinophils % (Manual) Basophils % (Manual) Nucleated RBC % Seg Neutrophils # Seg Neutrophils # Man Lymphocytes # (Manual) Monocytes # (Manual) Eosinophils # (Manual) Basophils # (Manual) PT INR Fibrinogen dRVVT Confirm Interp Factor V Activity POC ABG pH 7.499 H POC ABG pCO2 30.9 L POC ABG pO2 51 L ABG pO2 ABG HCO3 ABG Base Excess ABG Hemoglobin Oxyhemoglobin Sodium Potassium Chloride Carbon Dioxide BUN Creatinine Glucose POC Glucose 118 H 133 H Lactic Acid Calcium Phosphorus Magnesium Direct Bilirubin AST ALT Alkaline Phosphatase Lactate Dehydrogenase Troponin T C-Reactive Protein Total Protein Albumin Prealbumin Triglycerides Cholesterol LDL Cholesterol Direct HDL Cholesterol PTH Intact Urine pH Urine WBC (Auto) Urine Creatinine Urine Total Protein Fluid Total Protein Vancomycin Trough Rheumatoid Factor Complement C4 Miscellaneous Test Crossmatch 01/16/17 01/16/17 01/16/17 17:52 23:57 Unknown WBC RBC Hgb Hct MCV MCH MCHC RDW Plt Count Lymph % (Auto) [place]cock % (Auto) Lymph # [place]cock # Baso # Seg Neutrophils % Seg Neuts % (Manual) Lymphocytes % (Manual) Monocytes % (Manual) Eosinophils % (Manual) Basophils % (Manual) Nucleated RBC % Seg Neutrophils # Seg Neutrophils # Man Lymphocytes # (Manual) Monocytes # (Manual) Eosinophils # (Manual) Basophils # (Manual) PT INR Fibrinogen dRVVT Confirm Interp Factor V Activity POC ABG pH POC ABG pCO2 POC ABG pO2 ABG pO2 ABG HCO3 ABG Base Excess ABG Hemoglobin Oxyhemoglobin Sodium 135 L Potassium Chloride Carbon Dioxide BUN 101 H Creatinine 1.8 H Glucose 117 H POC Glucose 130 H 143 H Lactic Acid Calcium Phosphorus 5.80 H Magnesium Direct Bilirubin AST ALT Alkaline Phosphatase Lactate Dehydrogenase Troponin T C-Reactive Protein Total Protein Albumin Prealbumin Triglycerides Cholesterol LDL Cholesterol Direct HDL Cholesterol PTH Intact Urine pH Urine WBC (Auto) Urine Creatinine Urine Total Protein Fluid Total Protein Vancomycin Trough Rheumatoid Factor Complement C4 Miscellaneous Test Crossmatch 01/17/17 01/17/17 01/17/17 05:30 05:46 11:49 WBC RBC Hgb Hct MCV MCH MCHC RDW Plt Count Lymph % (Auto) [place] % (Auto) Lymph # [place] # Baso # Seg Neutrophils % Seg Neuts % (Manual) Lymphocytes % (Manual) Monocytes % (Manual) Eosinophils % (Manual) Basophils % (Manual) Nucleated RBC % Seg Neutrophils # Seg Neutrophils # Man Lymphocytes # (Manual) Monocytes # (Manual) Eosinophils # (Manual) Basophils # (Manual) PT INR Fibrinogen dRVVT Confirm Interp Factor V Activity POC ABG pH POC ABG pCO2 POC ABG pO2 ABG pO2 ABG HCO3 ABG Base Excess ABG Hemoglobin Oxyhemoglobin Sodium 134 L Potassium Chloride 95.8 L Carbon Dioxide BUN 66 H Creatinine 1.3 H Glucose 138 H POC Glucose 147 H 124 H Lactic Acid Calcium Phosphorus Magnesium Direct Bilirubin AST ALT Alkaline Phosphatase 254 H Lactate Dehydrogenase Troponin T C-Reactive Protein Total Protein Albumin 1.3 L Prealbumin Triglycerides Cholesterol LDL Cholesterol Direct HDL Cholesterol PTH Intact Urine pH Urine WBC (Auto) Urine Creatinine Urine Total Protein Fluid Total Protein Vancomycin Trough Rheumatoid Factor Complement C4 Miscellaneous Test Crossmatch 01/17/17 01/17/17 01/18/17 17:30 23:41 05:15 WBC RBC Hgb Hct MCV MCH MCHC RDW Plt Count Lymph % (Auto) [place] % (Auto) Lymph # [place] # Baso # Seg Neutrophils % Seg Neuts % (Manual) Lymphocytes % (Manual) Monocytes % (Manual) Eosinophils % (Manual) Basophils % (Manual) Nucleated RBC % Seg Neutrophils # Seg Neutrophils # Man Lymphocytes # (Manual) Monocytes # (Manual) Eosinophils # (Manual) Basophils # (Manual) PT INR Fibrinogen dRVVT Confirm Interp Factor V Activity POC ABG pH POC ABG pCO2 POC ABG pO2 ABG pO2 ABG HCO3 ABG Base Excess ABG Hemoglobin Oxyhemoglobin Sodium Potassium Chloride Carbon Dioxide BUN 89 H Creatinine 1.7 H Glucose 118 H POC Glucose 137 H 119 H Lactic Acid Calcium Phosphorus Magnesium Direct Bilirubin AST ALT Alkaline Phosphatase Lactate Dehydrogenase Troponin T C-Reactive Protein Total Protein Albumin Prealbumin Triglycerides Cholesterol LDL Cholesterol Direct HDL Cholesterol PTH Intact Urine pH Urine WBC (Auto) Urine Creatinine Urine Total Protein Fluid Total Protein Vancomycin Trough Rheumatoid Factor Complement C4 Miscellaneous Test Crossmatch 01/18/17 01/18/17 01/18/17 05:19 12:16 18:11 WBC RBC Hgb Hct MCV MCH MCHC RDW Plt Count Lymph % (Auto) [place] % (Auto) Lymph # [place] # Baso # Seg Neutrophils % Seg Neuts % (Manual) Lymphocytes % (Manual) Monocytes % (Manual) Eosinophils % (Manual) Basophils % (Manual) Nucleated RBC % Seg Neutrophils # Seg Neutrophils # Man Lymphocytes # (Manual) Monocytes # (Manual) Eosinophils # (Manual) Basophils # (Manual) PT INR Fibrinogen dRVVT Confirm Interp Factor V Activity POC ABG pH POC ABG pCO2 POC ABG pO2 ABG pO2 ABG HCO3 ABG Base Excess ABG Hemoglobin Oxyhemoglobin Sodium Potassium Chloride Carbon Dioxide BUN Creatinine Glucose POC Glucose 134 H 188 H 113 H Lactic Acid Calcium Phosphorus Magnesium Direct Bilirubin AST ALT Alkaline Phosphatase Lactate Dehydrogenase Troponin T C-Reactive Protein Total Protein Albumin Prealbumin Triglycerides Cholesterol LDL Cholesterol Direct HDL Cholesterol PTH Intact Urine pH Urine WBC (Auto) Urine Creatinine Urine Total Protein Fluid Total Protein Vancomycin Trough Rheumatoid Factor Complement C4 Miscellaneous Test Crossmatch 01/19/17 01/19/17 01/19/17 00:00 05:30 05:36 WBC RBC Hgb Hct MCV MCH MCHC RDW Plt Count Lymph % (Auto) [place] % (Auto) Lymph # [place] # Baso # Seg Neutrophils % Seg Neuts % (Manual) Lymphocytes % (Manual) Monocytes % (Manual) Eosinophils % (Manual) Basophils % (Manual) Nucleated RBC % Seg Neutrophils # Seg Neutrophils # Man Lymphocytes # (Manual) Monocytes # (Manual) Eosinophils # (Manual) Basophils # (Manual) PT INR Fibrinogen dRVVT Confirm Interp Factor V Activity POC ABG pH POC ABG pCO2 POC ABG pO2 ABG pO2 ABG HCO3 ABG Base Excess ABG Hemoglobin Oxyhemoglobin Sodium Potassium Chloride Carbon Dioxide BUN 70 H Creatinine 1.5 H Glucose 121 H POC Glucose 137 H 155 H Lactic Acid Calcium Phosphorus 2.10 L D Magnesium Direct Bilirubin AST ALT Alkaline Phosphatase Lactate Dehydrogenase Troponin T C-Reactive Protein Total Protein Albumin Prealbumin Triglycerides Cholesterol LDL Cholesterol Direct HDL Cholesterol PTH Intact Urine pH Urine WBC (Auto) Urine Creatinine Urine Total Protein Fluid Total Protein Vancomycin Trough Rheumatoid Factor Complement C4 Miscellaneous Test Crossmatch 01/19/17 01/19/17 01/19/17 11:59 15:32 17:57 WBC RBC Hgb Hct MCV MCH MCHC RDW Plt Count Lymph % (Auto) [place] % (Auto) Lymph # [place] # Baso # Seg Neutrophils % Seg Neuts % (Manual) Lymphocytes % (Manual) Monocytes % (Manual) Eosinophils % (Manual) Basophils % (Manual) Nucleated RBC % Seg Neutrophils # Seg Neutrophils # Man Lymphocytes # (Manual) Monocytes # (Manual) Eosinophils # (Manual) Basophils # (Manual) PT INR Fibrinogen dRVVT Confirm Interp Factor V Activity POC ABG pH POC ABG pCO2 33.1 L POC ABG pO2 76 L ABG pO2 ABG HCO3 ABG Base Excess ABG Hemoglobin Oxyhemoglobin Sodium Potassium Chloride Carbon Dioxide BUN Creatinine Glucose POC Glucose 156 H 129 H Lactic Acid Calcium Phosphorus Magnesium Direct Bilirubin AST ALT Alkaline Phosphatase Lactate Dehydrogenase Troponin T C-Reactive Protein Total Protein Albumin Prealbumin Triglycerides Cholesterol LDL Cholesterol Direct HDL Cholesterol PTH Intact Urine pH Urine WBC (Auto) Urine Creatinine Urine Total Protein Fluid Total Protein Vancomycin Trough Rheumatoid Factor Complement C4 Miscellaneous Test Crossmatch 01/19/17 01/20/17 01/20/17 23:49 04:00 05:21 WBC RBC Hgb Hct MCV MCH MCHC RDW Plt Count Lymph % (Auto) [place] % (Auto) Lymph # [place] # Baso # Seg Neutrophils % Seg Neuts % (Manual) Lymphocytes % (Manual) Monocytes % (Manual) Eosinophils % (Manual) Basophils % (Manual) Nucleated RBC % Seg Neutrophils # Seg Neutrophils # Man Lymphocytes # (Manual) Monocytes # (Manual) Eosinophils # (Manual) Basophils # (Manual) PT INR Fibrinogen dRVVT Confirm Interp Factor V Activity POC ABG pH POC ABG pCO2 POC ABG pO2 ABG pO2 ABG HCO3 ABG Base Excess ABG Hemoglobin Oxyhemoglobin Sodium Potassium Chloride Carbon Dioxide BUN 96 H Creatinine 1.9 H Glucose 106 H POC Glucose 125 H 130 H Lactic Acid Calcium Phosphorus 2.40 L Magnesium Direct Bilirubin AST ALT Alkaline Phosphatase Lactate Dehydrogenase Troponin T C-Reactive Protein Total Protein Albumin Prealbumin Triglycerides Cholesterol LDL Cholesterol Direct HDL Cholesterol PTH Intact Urine pH Urine WBC (Auto) Urine Creatinine Urine Total Protein Fluid Total Protein Vancomycin Trough Rheumatoid Factor Complement C4 Miscellaneous Test Crossmatch 01/20/17 01/20/17 01/20/17 11:58 12:17 17:26 WBC RBC Hgb Hct MCV MCH MCHC RDW Plt Count Lymph % (Auto) [place] % (Auto) Lymph # [place] # Baso # Seg Neutrophils % Seg Neuts % (Manual) Lymphocytes % (Manual) Monocytes % (Manual) Eosinophils % (Manual) Basophils % (Manual) Nucleated RBC % Seg Neutrophils # Seg Neutrophils # Man Lymphocytes # (Manual) Monocytes # (Manual) Eosinophils # (Manual) Basophils # (Manual) PT INR Fibrinogen dRVVT Confirm Interp Factor V Activity POC ABG pH POC ABG pCO2 POC ABG pO2 70 L ABG pO2 ABG HCO3 ABG Base Excess ABG Hemoglobin Oxyhemoglobin Sodium Potassium Chloride Carbon Dioxide BUN Creatinine Glucose POC Glucose 118 H 154 H Lactic Acid Calcium Phosphorus Magnesium Direct Bilirubin AST ALT Alkaline Phosphatase Lactate Dehydrogenase Troponin T C-Reactive Protein Total Protein Albumin Prealbumin Triglycerides Cholesterol LDL Cholesterol Direct HDL Cholesterol PTH Intact Urine pH Urine WBC (Auto) Urine Creatinine Urine Total Protein Fluid Total Protein Vancomycin Trough Rheumatoid Factor Complement C4 Miscellaneous Test Crossmatch 01/21/17 01/21/17 01/21/17 04:00 04:56 11:46 WBC RBC Hgb Hct MCV MCH MCHC RDW Plt Count Lymph % (Auto) [place] % (Auto) Lymph # [place] # Baso # Seg Neutrophils % Seg Neuts % (Manual) Lymphocytes % (Manual) Monocytes % (Manual) Eosinophils % (Manual) Basophils % (Manual) Nucleated RBC % Seg Neutrophils # Seg Neutrophils # Man Lymphocytes # (Manual) Monocytes # (Manual) Eosinophils # (Manual) Basophils # (Manual) PT INR Fibrinogen dRVVT Confirm Interp Factor V Activity POC ABG pH POC ABG pCO2 POC ABG pO2 ABG pO2 ABG HCO3 ABG Base Excess ABG Hemoglobin Oxyhemoglobin Sodium Potassium 3.5 L Chloride 97.4 L Carbon Dioxide BUN 66 H Creatinine 1.4 H Glucose POC Glucose 116 H 106 H Lactic Acid Calcium Phosphorus 2.10 L Magnesium Direct Bilirubin AST ALT Alkaline Phosphatase Lactate Dehydrogenase Troponin T C-Reactive Protein Total Protein Albumin Prealbumin Triglycerides Cholesterol LDL Cholesterol Direct HDL Cholesterol PTH Intact Urine pH Urine WBC (Auto) Urine Creatinine Urine Total Protein Fluid Total Protein Vancomycin Trough Rheumatoid Factor Complement C4 Miscellaneous Test Crossmatch 01/21/17 01/21/17 01/22/17 17:25 23:49 05:35 WBC RBC Hgb Hct MCV MCH MCHC RDW Plt Count Lymph % (Auto) [place] % (Auto) Lymph # [place] # Baso # Seg Neutrophils % Seg Neuts % (Manual) Lymphocytes % (Manual) Monocytes % (Manual) Eosinophils % (Manual) Basophils % (Manual) Nucleated RBC % Seg Neutrophils # Seg Neutrophils # Man Lymphocytes # (Manual) Monocytes # (Manual) Eosinophils # (Manual) Basophils # (Manual) PT INR Fibrinogen dRVVT Confirm Interp Factor V Activity POC ABG pH POC ABG pCO2 POC ABG pO2 ABG pO2 ABG HCO3 ABG Base Excess ABG Hemoglobin Oxyhemoglobin Sodium Potassium Chloride Carbon Dioxide BUN Creatinine Glucose POC Glucose 106 H 133 H 107 H Lactic Acid Calcium Phosphorus Magnesium Direct Bilirubin AST ALT Alkaline Phosphatase Lactate Dehydrogenase Troponin T C-Reactive Protein Total Protein Albumin Prealbumin Triglycerides Cholesterol LDL Cholesterol Direct HDL Cholesterol PTH Intact Urine pH Urine WBC (Auto) Urine Creatinine Urine Total Protein Fluid Total Protein Vancomycin Trough Rheumatoid Factor Complement C4 Miscellaneous Test Crossmatch 01/22/17 01/22/17 01/22/17 07:20 07:20 11:31 WBC RBC 2.75 L Hgb 7.5 L Hct 22.7 L MCV MCH 27 L MCHC RDW 17.5 H Plt Count Lymph % (Auto) [place] % (Auto) Lymph # [place] # Baso # Seg Neutrophils % Seg Neuts % (Manual) Lymphocytes % (Manual) Monocytes % (Manual) Eosinophils % (Manual) Basophils % (Manual) Nucleated RBC % Seg Neutrophils # Seg Neutrophils # Man Lymphocytes # (Manual) Monocytes # (Manual) Eosinophils # (Manual) Basophils # (Manual) PT INR Fibrinogen dRVVT Confirm Interp Factor V Activity POC ABG pH POC ABG pCO2 POC ABG pO2 ABG pO2 ABG HCO3 ABG Base Excess ABG Hemoglobin Oxyhemoglobin Sodium Potassium 3.3 L Chloride Carbon Dioxide BUN 42 H Creatinine Glucose 105 H POC Glucose 124 H Lactic Acid Calcium Phosphorus 1.70 L Magnesium Direct Bilirubin AST ALT Alkaline Phosphatase Lactate Dehydrogenase Troponin T C-Reactive Protein Total Protein Albumin Prealbumin Triglycerides Cholesterol LDL Cholesterol Direct HDL Cholesterol PTH Intact Urine pH Urine WBC (Auto) Urine Creatinine Urine Total Protein Fluid Total Protein Vancomycin Trough Rheumatoid Factor Complement C4 Miscellaneous Test Crossmatch 01/22/17 01/22/17 01/23/17 17:16 23:35 05:35 WBC RBC Hgb Hct MCV MCH MCHC RDW Plt Count Lymph % (Auto) [place] % (Auto) Lymph # [place] # Baso # Seg Neutrophils % Seg Neuts % (Manual) Lymphocytes % (Manual) Monocytes % (Manual) Eosinophils % (Manual) Basophils % (Manual) Nucleated RBC % Seg Neutrophils # Seg Neutrophils # Man Lymphocytes # (Manual) Monocytes # (Manual) Eosinophils # (Manual) Basophils # (Manual) PT INR Fibrinogen dRVVT Confirm Interp Factor V Activity POC ABG pH POC ABG pCO2 POC ABG pO2 ABG pO2 ABG HCO3 ABG Base Excess ABG Hemoglobin Oxyhemoglobin Sodium Potassium Chloride Carbon Dioxide BUN Creatinine Glucose POC Glucose 135 H 120 H 111 H Lactic Acid Calcium Phosphorus Magnesium Direct Bilirubin AST ALT Alkaline Phosphatase Lactate Dehydrogenase Troponin T C-Reactive Protein Total Protein Albumin Prealbumin Triglycerides Cholesterol LDL Cholesterol Direct HDL Cholesterol PTH Intact Urine pH Urine WBC (Auto) Urine Creatinine Urine Total Protein Fluid Total Protein Vancomycin Trough Rheumatoid Factor Complement C4 Miscellaneous Test Crossmatch 01/23/17 01/23/17 01/23/17 06:10 17:27 23:44 WBC RBC Hgb Hct MCV MCH MCHC RDW Plt Count Lymph % (Auto) [place] % (Auto) Lymph # [place] # Baso # Seg Neutrophils % Seg Neuts % (Manual) Lymphocytes % (Manual) Monocytes % (Manual) Eosinophils % (Manual) Basophils % (Manual) Nucleated RBC % Seg Neutrophils # Seg Neutrophils # Man Lymphocytes # (Manual) Monocytes # (Manual) Eosinophils # (Manual) Basophils # (Manual) PT INR Fibrinogen dRVVT Confirm Interp Factor V Activity POC ABG pH POC ABG pCO2 POC ABG pO2 ABG pO2 ABG HCO3 ABG Base Excess ABG Hemoglobin Oxyhemoglobin Sodium Potassium 3.3 L Chloride Carbon Dioxide BUN 66 H Creatinine 1.3 H Glucose 109 H POC Glucose 120 H 115 H Lactic Acid Calcium Phosphorus 2.20 L D Magnesium Direct Bilirubin AST ALT Alkaline Phosphatase Lactate Dehydrogenase Troponin T C-Reactive Protein Total Protein Albumin Prealbumin Triglycerides Cholesterol LDL Cholesterol Direct HDL Cholesterol PTH Intact Urine pH Urine WBC (Auto) Urine Creatinine Urine Total Protein Fluid Total Protein Vancomycin Trough Rheumatoid Factor Complement C4 Miscellaneous Test Crossmatch 01/24/17 01/24/17 01/24/17 05:19 05:50 12:19 WBC RBC Hgb Hct MCV MCH MCHC RDW Plt Count Lymph % (Auto) [place] % (Auto) Lymph # [place] # Baso # Seg Neutrophils % Seg Neuts % (Manual) Lymphocytes % (Manual) Monocytes % (Manual) Eosinophils % (Manual) Basophils % (Manual) Nucleated RBC % Seg Neutrophils # Seg Neutrophils # Man Lymphocytes # (Manual) Monocytes # (Manual) Eosinophils # (Manual) Basophils # (Manual) PT INR Fibrinogen dRVVT Confirm Interp Factor V Activity POC ABG pH POC ABG pCO2 POC ABG pO2 ABG pO2 ABG HCO3 ABG Base Excess ABG Hemoglobin Oxyhemoglobin Sodium Potassium Chloride Carbon Dioxide BUN 47 H Creatinine Glucose 117 H POC Glucose 126 H 119 H Lactic Acid Calcium Phosphorus 2.30 L Magnesium 1.60 L Direct Bilirubin AST ALT Alkaline Phosphatase Lactate Dehydrogenase Troponin T C-Reactive Protein Total Protein Albumin Prealbumin Triglycerides Cholesterol LDL Cholesterol Direct HDL Cholesterol PTH Intact Urine pH Urine WBC (Auto) Urine Creatinine Urine Total Protein Fluid Total Protein Vancomycin Trough Rheumatoid Factor Complement C4 Miscellaneous Test Crossmatch 01/24/17 01/25/17 01/25/17 17:08 00:37 04:00 WBC RBC Hgb Hct MCV MCH MCHC RDW Plt Count Lymph % (Auto) [place] % (Auto) Lymph # [place] # Baso # Seg Neutrophils % Seg Neuts % (Manual) Lymphocytes % (Manual) Monocytes % (Manual) Eosinophils % (Manual) Basophils % (Manual) Nucleated RBC % Seg Neutrophils # Seg Neutrophils # Man Lymphocytes # (Manual) Monocytes # (Manual) Eosinophils # (Manual) Basophils # (Manual) PT INR Fibrinogen dRVVT Confirm Interp Factor V Activity POC ABG pH POC ABG pCO2 POC ABG pO2 ABG pO2 ABG HCO3 ABG Base Excess ABG Hemoglobin Oxyhemoglobin Sodium Potassium Chloride Carbon Dioxide BUN 72 H Creatinine 1.3 H Glucose POC Glucose 127 H 110 H Lactic Acid Calcium Phosphorus Magnesium Direct Bilirubin AST ALT Alkaline Phosphatase Lactate Dehydrogenase Troponin T C-Reactive Protein Total Protein Albumin Prealbumin Triglycerides Cholesterol LDL Cholesterol Direct HDL Cholesterol PTH Intact Urine pH Urine WBC (Auto) Urine Creatinine Urine Total Protein Fluid Total Protein Vancomycin Trough Rheumatoid Factor Complement C4 Miscellaneous Test Crossmatch 01/25/17 01/25/17 01/25/17 04:00 11:15 13:05 WBC RBC 2.49 L Hgb 6.7 L Hct 20.9 L MCV MCH 27 L MCHC RDW 18.8 H Plt Count Lymph % (Auto) [place] % (Auto) 10.1 H Lymph # [place] # 1.0 H Baso # Seg Neutrophils % Seg Neuts % (Manual) Lymphocytes % (Manual) Monocytes % (Manual) Eosinophils % (Manual) Basophils % (Manual) Nucleated RBC % Seg Neutrophils # Seg Neutrophils # Man Lymphocytes # (Manual) Monocytes # (Manual) Eosinophils # (Manual) Basophils # (Manual) PT INR Fibrinogen dRVVT Confirm Interp Factor V Activity POC ABG pH POC ABG pCO2 POC ABG pO2 ABG pO2 ABG HCO3 ABG Base Excess ABG Hemoglobin Oxyhemoglobin Sodium Potassium Chloride Carbon Dioxide BUN Creatinine Glucose POC Glucose 128 H Lactic Acid Calcium Phosphorus Magnesium Direct Bilirubin AST ALT Alkaline Phosphatase Lactate Dehydrogenase Troponin T C-Reactive Protein Total Protein Albumin Prealbumin Triglycerides Cholesterol LDL Cholesterol Direct HDL Cholesterol PTH Intact Urine pH Urine WBC (Auto) Urine Creatinine Urine Total Protein Fluid Total Protein Vancomycin Trough Rheumatoid Factor Complement C4 Miscellaneous Test Crossmatch See Detail 01/25/17 01/25/17 01/26/17 18:02 23:07 01:20 WBC RBC Hgb Hct MCV MCH MCHC RDW Plt Count Lymph % (Auto) [place] % (Auto) Lymph # [place] # Baso # Seg Neutrophils % Seg Neuts % (Manual) Lymphocytes % (Manual) Monocytes % (Manual) Eosinophils % (Manual) Basophils % (Manual) Nucleated RBC % Seg Neutrophils # Seg Neutrophils # Man Lymphocytes # (Manual) Monocytes # (Manual) Eosinophils # (Manual) Basophils # (Manual) PT INR Fibrinogen dRVVT Confirm Interp Factor V Activity POC ABG pH POC ABG pCO2 POC ABG pO2 ABG pO2 ABG HCO3 ABG Base Excess ABG Hemoglobin Oxyhemoglobin Sodium Potassium Chloride Carbon Dioxide BUN Creatinine Glucose POC Glucose 120 H 123 H 112 H Lactic Acid Calcium Phosphorus Magnesium Direct Bilirubin AST ALT Alkaline Phosphatase Lactate Dehydrogenase Troponin T C-Reactive Protein Total Protein Albumin Prealbumin Triglycerides Cholesterol LDL Cholesterol Direct HDL Cholesterol PTH Intact Urine pH Urine WBC (Auto) Urine Creatinine Urine Total Protein Fluid Total Protein Vancomycin Trough Rheumatoid Factor Complement C4 Miscellaneous Test Crossmatch 01/26/17 01/26/17 01/26/17 04:20 04:20 11:23 WBC 13.1 H RBC 3.28 L Hgb 9.0 L Hct 26.9 L D MCV MCH 27 L MCHC RDW 17.2 H Plt Count Lymph % (Auto) [place] % (Auto) 9.0 H Lymph # [place] # 1.2 H Baso # Seg Neutrophils % 73.1 H Seg Neuts % (Manual) Lymphocytes % (Manual) Monocytes % (Manual) Eosinophils % (Manual) Basophils % (Manual) Nucleated RBC % Seg Neutrophils # 9.6 H Seg Neutrophils # Man Lymphocytes # (Manual) Monocytes # (Manual) Eosinophils # (Manual) Basophils # (Manual) PT INR Fibrinogen dRVVT Confirm Interp Factor V Activity POC ABG pH POC ABG pCO2 POC ABG pO2 ABG pO2 ABG HCO3 ABG Base Excess ABG Hemoglobin Oxyhemoglobin Sodium Potassium Chloride Carbon Dioxide BUN 51 H Creatinine Glucose 117 H POC Glucose 125 H Lactic Acid Calcium Phosphorus Magnesium Direct Bilirubin AST ALT Alkaline Phosphatase Lactate Dehydrogenase Troponin T C-Reactive Protein Total Protein Albumin Prealbumin Triglycerides Cholesterol LDL Cholesterol Direct HDL Cholesterol PTH Intact Urine pH Urine WBC (Auto) Urine Creatinine Urine Total Protein Fluid Total Protein Vancomycin Trough Rheumatoid Factor Complement C4 Miscellaneous Test Crossmatch 01/26/17 01/27/17 01/27/17 17:11 00:30 04:00 WBC RBC Hgb Hct MCV MCH MCHC RDW Plt Count Lymph % (Auto) [place] % (Auto) Lymph # [place] # Baso # Seg Neutrophils % Seg Neuts % (Manual) Lymphocytes % (Manual) Monocytes % (Manual) Eosinophils % (Manual) Basophils % (Manual) Nucleated RBC % Seg Neutrophils # Seg Neutrophils # Man Lymphocytes # (Manual) Monocytes # (Manual) Eosinophils # (Manual) Basophils # (Manual) PT INR Fibrinogen dRVVT Confirm Interp Factor V Activity POC ABG pH POC ABG pCO2 POC ABG pO2 ABG pO2 ABG HCO3 ABG Base Excess ABG Hemoglobin Oxyhemoglobin Sodium Potassium Chloride 97.7 L Carbon Dioxide 21 L BUN 79 H Creatinine 1.7 H D Glucose 112 H POC Glucose 133 H 135 H Lactic Acid Calcium Phosphorus 5.00 H D Magnesium Direct Bilirubin AST ALT Alkaline Phosphatase Lactate Dehydrogenase Troponin T C-Reactive Protein Total Protein Albumin Prealbumin Triglycerides Cholesterol LDL Cholesterol Direct HDL Cholesterol PTH Intact Urine pH Urine WBC (Auto) Urine Creatinine Urine Total Protein Fluid Total Protein Vancomycin Trough Rheumatoid Factor Complement C4 Miscellaneous Test Crossmatch 01/27/17 01/27/17 01/27/17 05:12 12:18 17:25 WBC RBC Hgb Hct MCV MCH MCHC RDW Plt Count Lymph % (Auto) [place] % (Auto) Lymph # [place] # Baso # Seg Neutrophils % Seg Neuts % (Manual) Lymphocytes % (Manual) Monocytes % (Manual) Eosinophils % (Manual) Basophils % (Manual) Nucleated RBC % Seg Neutrophils # Seg Neutrophils # Man Lymphocytes # (Manual) Monocytes # (Manual) Eosinophils # (Manual) Basophils # (Manual) PT INR Fibrinogen dRVVT Confirm Interp Factor V Activity POC ABG pH POC ABG pCO2 POC ABG pO2 ABG pO2 ABG HCO3 ABG Base Excess ABG Hemoglobin Oxyhemoglobin Sodium Potassium Chloride Carbon Dioxide BUN Creatinine Glucose POC Glucose 116 H 153 H 152 H Lactic Acid Calcium Phosphorus Magnesium Direct Bilirubin AST ALT Alkaline Phosphatase Lactate Dehydrogenase Troponin T C-Reactive Protein Total Protein Albumin Prealbumin Triglycerides Cholesterol LDL Cholesterol Direct HDL Cholesterol PTH Intact Urine pH Urine WBC (Auto) Urine Creatinine Urine Total Protein Fluid Total Protein Vancomycin Trough Rheumatoid Factor Complement C4 Miscellaneous Test Crossmatch 01/27/17 01/28/17 01/28/17 23:42 04:00 04:00 WBC 14.4 H RBC 2.82 L Hgb 7.4 L Hct 23.5 L MCV MCH 26 L MCHC RDW 17.6 H Plt Count Lymph % (Auto) 10.2 L [place] % (Auto) 11.0 H Lymph # [place] # 1.6 H Baso # Seg Neutrophils % 78.0 H Seg Neuts % (Manual) Lymphocytes % (Manual) Monocytes % (Manual) Eosinophils % (Manual) Basophils % (Manual) Nucleated RBC % Seg Neutrophils # 11.3 H Seg Neutrophils # Man Lymphocytes # (Manual) Monocytes # (Manual) Eosinophils # (Manual) Basophils # (Manual) PT INR Fibrinogen dRVVT Confirm Interp Factor V Activity POC ABG pH POC ABG pCO2 POC ABG pO2 ABG pO2 ABG HCO3 ABG Base Excess ABG Hemoglobin Oxyhemoglobin Sodium Potassium Chloride Carbon Dioxide BUN 55 H Creatinine 1.3 H Glucose 114 H POC Glucose 121 H Lactic Acid Calcium Phosphorus Magnesium Direct Bilirubin AST ALT Alkaline Phosphatase Lactate Dehydrogenase Troponin T C-Reactive Protein Total Protein Albumin 1.4 L Prealbumin Triglycerides Cholesterol LDL Cholesterol Direct HDL Cholesterol PTH Intact Urine pH Urine WBC (Auto) Urine Creatinine Urine Total Protein Fluid Total Protein Vancomycin Trough Rheumatoid Factor Complement C4 Miscellaneous Test Crossmatch 01/28/17 01/28/17 01/29/17 04:59 12:30 00:02 WBC RBC Hgb Hct MCV MCH MCHC RDW Plt Count Lymph % (Auto) [place] % (Auto) Lymph # [place] # Baso # Seg Neutrophils % Seg Neuts % (Manual) Lymphocytes % (Manual) Monocytes % (Manual) Eosinophils % (Manual) Basophils % (Manual) Nucleated RBC % Seg Neutrophils # Seg Neutrophils # Man Lymphocytes # (Manual) Monocytes # (Manual) Eosinophils # (Manual) Basophils # (Manual) PT INR Fibrinogen dRVVT Confirm Interp Factor V Activity POC ABG pH POC ABG pCO2 POC ABG pO2 ABG pO2 ABG HCO3 ABG Base Excess ABG Hemoglobin Oxyhemoglobin Sodium Potassium Chloride Carbon Dioxide BUN Creatinine Glucose POC Glucose 126 H 119 H 138 H Lactic Acid Calcium Phosphorus Magnesium Direct Bilirubin AST ALT Alkaline Phosphatase Lactate Dehydrogenase Troponin T C-Reactive Protein Total Protein Albumin Prealbumin Triglycerides Cholesterol LDL Cholesterol Direct HDL Cholesterol PTH Intact Urine pH Urine WBC (Auto) Urine Creatinine Urine Total Protein Fluid Total Protein Vancomycin Trough Rheumatoid Factor Complement C4 Miscellaneous Test Crossmatch 01/29/17 01/29/17 01/29/17 04:58 06:15 11:35 WBC RBC Hgb Hct MCV MCH MCHC RDW Plt Count Lymph % (Auto) [place] % (Auto) Lymph # [place] # Baso # Seg Neutrophils % Seg Neuts % (Manual) Lymphocytes % (Manual) Monocytes % (Manual) Eosinophils % (Manual) Basophils % (Manual) Nucleated RBC % Seg Neutrophils # Seg Neutrophils # Man Lymphocytes # (Manual) Monocytes # (Manual) Eosinophils # (Manual) Basophils # (Manual) PT INR Fibrinogen dRVVT Confirm Interp Factor V Activity POC ABG pH POC ABG pCO2 POC ABG pO2 ABG pO2 ABG HCO3 ABG Base Excess ABG Hemoglobin Oxyhemoglobin Sodium Potassium Chloride Carbon Dioxide BUN 85 H Creatinine 1.7 H Glucose 105 H POC Glucose 114 H 110 H Lactic Acid Calcium Phosphorus Magnesium 2.40 H Direct Bilirubin AST ALT Alkaline Phosphatase Lactate Dehydrogenase Troponin T C-Reactive Protein Total Protein Albumin Prealbumin Triglycerides Cholesterol LDL Cholesterol Direct HDL Cholesterol PTH Intact Urine pH Urine WBC (Auto) Urine Creatinine Urine Total Protein Fluid Total Protein Vancomycin Trough Rheumatoid Factor Complement C4 Miscellaneous Test Crossmatch 01/29/17 01/29/17 01/30/17 18:24 23:41 05:12 WBC RBC Hgb Hct MCV MCH MCHC RDW Plt Count Lymph % (Auto) [place] % (Auto) Lymph # [place] # Baso # Seg Neutrophils % Seg Neuts % (Manual) Lymphocytes % (Manual) Monocytes % (Manual) Eosinophils % (Manual) Basophils % (Manual) Nucleated RBC % Seg Neutrophils # Seg Neutrophils # Man Lymphocytes # (Manual) Monocytes # (Manual) Eosinophils # (Manual) Basophils # (Manual) PT INR Fibrinogen dRVVT Confirm Interp Factor V Activity POC ABG pH POC ABG pCO2 POC ABG pO2 ABG pO2 ABG HCO3 ABG Base Excess ABG Hemoglobin Oxyhemoglobin Sodium Potassium Chloride Carbon Dioxide BUN Creatinine Glucose POC Glucose 109 H 134 H 109 H Lactic Acid Calcium Phosphorus Magnesium Direct Bilirubin AST ALT Alkaline Phosphatase Lactate Dehydrogenase Troponin T C-Reactive Protein Total Protein Albumin Prealbumin Triglycerides Cholesterol LDL Cholesterol Direct HDL Cholesterol PTH Intact Urine pH Urine WBC (Auto) Urine Creatinine Urine Total Protein Fluid Total Protein Vancomycin Trough Rheumatoid Factor Complement C4 Miscellaneous Test Crossmatch 01/30/17 01/30/17 01/30/17 11:26 17:43 23:39 WBC RBC Hgb Hct MCV MCH MCHC RDW Plt Count Lymph % (Auto) [place] % (Auto) Lymph # [place] # Baso # Seg Neutrophils % Seg Neuts % (Manual) Lymphocytes % (Manual) Monocytes % (Manual) Eosinophils % (Manual) Basophils % (Manual) Nucleated RBC % Seg Neutrophils # Seg Neutrophils # Man Lymphocytes # (Manual) Monocytes # (Manual) Eosinophils # (Manual) Basophils # (Manual) PT INR Fibrinogen dRVVT Confirm Interp Factor V Activity POC ABG pH POC ABG pCO2 POC ABG pO2 ABG pO2 ABG HCO3 ABG Base Excess ABG Hemoglobin Oxyhemoglobin Sodium Potassium Chloride Carbon Dioxide BUN Creatinine Glucose POC Glucose 135 H 143 H 122 H Lactic Acid Calcium Phosphorus Magnesium Direct Bilirubin AST ALT Alkaline Phosphatase Lactate Dehydrogenase Troponin T C-Reactive Protein Total Protein Albumin Prealbumin Triglycerides Cholesterol LDL Cholesterol Direct HDL Cholesterol PTH Intact Urine pH Urine WBC (Auto) Urine Creatinine Urine Total Protein Fluid Total Protein Vancomycin Trough Rheumatoid Factor Complement C4 Miscellaneous Test Crossmatch 01/31/17 01/31/17 01/31/17 04:00 05:40 11:12 WBC RBC Hgb Hct MCV MCH MCHC RDW Plt Count Lymph % (Auto) [place] % (Auto) Lymph # [place] # Baso # Seg Neutrophils % Seg Neuts % (Manual) Lymphocytes % (Manual) Monocytes % (Manual) Eosinophils % (Manual) Basophils % (Manual) Nucleated RBC % Seg Neutrophils # Seg Neutrophils # Man Lymphocytes # (Manual) Monocytes # (Manual) Eosinophils # (Manual) Basophils # (Manual) PT INR Fibrinogen dRVVT Confirm Interp Factor V Activity POC ABG pH POC ABG pCO2 POC ABG pO2 ABG pO2 ABG HCO3 ABG Base Excess ABG Hemoglobin Oxyhemoglobin Sodium Potassium Chloride Carbon Dioxide BUN 78 H Creatinine 1.5 H Glucose 108 H POC Glucose 123 H Lactic Acid Calcium Phosphorus Magnesium Direct Bilirubin AST ALT Alkaline Phosphatase Lactate Dehydrogenase Troponin T C-Reactive Protein 8.10 H Total Protein Albumin Prealbumin Triglycerides Cholesterol LDL Cholesterol Direct HDL Cholesterol PTH Intact Urine pH Urine WBC (Auto) Urine Creatinine Urine Total Protein Fluid Total Protein Vancomycin Trough Rheumatoid Factor Complement C4 Miscellaneous Test Crossmatch 01/31/17 01/31/17 01/31/17 11:16 17:45 17:50 WBC RBC Hgb Hct MCV MCH MCHC RDW Plt Count Lymph % (Auto) [place] % (Auto) Lymph # [place] # Baso # Seg Neutrophils % Seg Neuts % (Manual) Lymphocytes % (Manual) Monocytes % (Manual) Eosinophils % (Manual) Basophils % (Manual) Nucleated RBC % Seg Neutrophils # Seg Neutrophils # Man Lymphocytes # (Manual) Monocytes # (Manual) Eosinophils # (Manual) Basophils # (Manual) PT INR Fibrinogen dRVVT Confirm Interp Factor V Activity POC ABG pH POC ABG pCO2 POC ABG pO2 ABG pO2 ABG HCO3 ABG Base Excess ABG Hemoglobin Oxyhemoglobin Sodium Potassium Chloride Carbon Dioxide BUN Creatinine Glucose POC Glucose 119 H 111 H Lactic Acid Calcium Phosphorus Magnesium Direct Bilirubin AST ALT Alkaline Phosphatase Lactate Dehydrogenase Troponin T C-Reactive Protein Total Protein Albumin Prealbumin Triglycerides Cholesterol LDL Cholesterol Direct HDL Cholesterol PTH Intact 6.76 L Urine pH Urine WBC (Auto) Urine Creatinine Urine Total Protein Fluid Total Protein Vancomycin Trough Rheumatoid Factor Complement C4 Miscellaneous Test Crossmatch 01/31/17 02/01/17 02/01/17 23:19 05:42 09:24 WBC RBC Hgb Hct MCV MCH MCHC RDW Plt Count Lymph % (Auto) [place] % (Auto) Lymph # [place] # Baso # Seg Neutrophils % Seg Neuts % (Manual) Lymphocytes % (Manual) Monocytes % (Manual) Eosinophils % (Manual) Basophils % (Manual) Nucleated RBC % Seg Neutrophils # Seg Neutrophils # Man Lymphocytes # (Manual) Monocytes # (Manual) Eosinophils # (Manual) Basophils # (Manual) PT INR Fibrinogen dRVVT Confirm Interp Factor V Activity POC ABG pH POC ABG pCO2 POC ABG pO2 ABG pO2 ABG HCO3 ABG Base Excess ABG Hemoglobin Oxyhemoglobin Sodium Potassium Chloride Carbon Dioxide BUN Creatinine Glucose POC Glucose 118 H 122 H Lactic Acid Calcium Phosphorus Magnesium 2.60 H Direct Bilirubin AST ALT Alkaline Phosphatase Lactate Dehydrogenase Troponin T C-Reactive Protein Total Protein Albumin Prealbumin Triglycerides Cholesterol LDL Cholesterol Direct HDL Cholesterol PTH Intact Urine pH Urine WBC (Auto) Urine Creatinine Urine Total Protein Fluid Total Protein Vancomycin Trough Rheumatoid Factor Complement C4 Miscellaneous Test Crossmatch 02/01/17 02/01/17 02/02/17 09:24 12:15 07:40 WBC RBC Hgb Hct MCV MCH MCHC RDW Plt Count Lymph % (Auto) [place] % (Auto) Lymph # [place] # Baso # Seg Neutrophils % Seg Neuts % (Manual) Lymphocytes % (Manual) Monocytes % (Manual) Eosinophils % (Manual) Basophils % (Manual) Nucleated RBC % Seg Neutrophils # Seg Neutrophils # Man Lymphocytes # (Manual) Monocytes # (Manual) Eosinophils # (Manual) Basophils # (Manual) PT INR Fibrinogen dRVVT Confirm Interp Factor V Activity POC ABG pH POC ABG pCO2 POC ABG pO2 ABG pO2 ABG HCO3 ABG Base Excess ABG Hemoglobin Oxyhemoglobin Sodium Potassium Chloride Carbon Dioxide BUN 102 H 72 H Creatinine 1.9 H 1.5 H Glucose 120 H POC Glucose 156 H Lactic Acid Calcium Phosphorus Magnesium Direct Bilirubin AST ALT Alkaline Phosphatase Lactate Dehydrogenase Troponin T C-Reactive Protein Total Protein Albumin Prealbumin Triglycerides Cholesterol LDL Cholesterol Direct HDL Cholesterol PTH Intact Urine pH Urine WBC (Auto) Urine Creatinine Urine Total Protein Fluid Total Protein Vancomycin Trough Rheumatoid Factor Complement C4 Miscellaneous Test Crossmatch 02/02/17 02/02/17 02/03/17 10:16 12:11 00:08 WBC 12.0 H RBC 3.08 L Hgb 8.3 L Hct 25.6 L MCV MCH 27 L MCHC RDW 18.2 H Plt Count Lymph % (Auto) [place] % (Auto) Lymph # [place] # Baso # Seg Neutrophils % 78.4 H Seg Neuts % (Manual) Lymphocytes % (Manual) Monocytes % (Manual) Eosinophils % (Manual) Basophils % (Manual) Nucleated RBC % Seg Neutrophils # 9.4 H Seg Neutrophils # Man Lymphocytes # (Manual) Monocytes # (Manual) Eosinophils # (Manual) Basophils # (Manual) PT INR Fibrinogen dRVVT Confirm Interp Factor V Activity POC ABG pH POC ABG pCO2 POC ABG pO2 ABG pO2 ABG HCO3 ABG Base Excess ABG Hemoglobin Oxyhemoglobin Sodium Potassium Chloride Carbon Dioxide BUN Creatinine Glucose POC Glucose 110 H 120 H Lactic Acid Calcium Phosphorus Magnesium Direct Bilirubin AST ALT Alkaline Phosphatase Lactate Dehydrogenase Troponin T C-Reactive Protein Total Protein Albumin Prealbumin Triglycerides Cholesterol LDL Cholesterol Direct HDL Cholesterol PTH Intact Urine pH Urine WBC (Auto) Urine Creatinine Urine Total Protein Fluid Total Protein Vancomycin Trough Rheumatoid Factor Complement C4 Miscellaneous Test Crossmatch 02/03/17 02/03/17 02/03/17 05:41 07:38 11:31 WBC RBC Hgb Hct MCV MCH MCHC RDW Plt Count Lymph % (Auto) [place] % (Auto) Lymph # [place] # Baso # Seg Neutrophils % Seg Neuts % (Manual) Lymphocytes % (Manual) Monocytes % (Manual) Eosinophils % (Manual) Basophils % (Manual) Nucleated RBC % Seg Neutrophils # Seg Neutrophils # Man Lymphocytes # (Manual) Monocytes # (Manual) Eosinophils # (Manual) Basophils # (Manual) PT INR Fibrinogen dRVVT Confirm Interp Factor V Activity POC ABG pH POC ABG pCO2 POC ABG pO2 ABG pO2 ABG HCO3 ABG Base Excess ABG Hemoglobin Oxyhemoglobin Sodium 134 L Potassium Chloride Carbon Dioxide 21 L BUN 91 H Creatinine 1.9 H Glucose 110 H POC Glucose 119 H 119 H Lactic Acid Calcium 10.3 H Phosphorus Magnesium Direct Bilirubin AST ALT Alkaline Phosphatase Lactate Dehydrogenase Troponin T C-Reactive Protein Total Protein Albumin Prealbumin Triglycerides Cholesterol LDL Cholesterol Direct HDL Cholesterol PTH Intact Urine pH Urine WBC (Auto) Urine Creatinine Urine Total Protein Fluid Total Protein Vancomycin Trough Rheumatoid Factor Complement C4 Miscellaneous Test Crossmatch 02/03/17 02/04/17 02/04/17 17:13 04:00 05:18 WBC RBC Hgb Hct MCV MCH MCHC RDW Plt Count Lymph % (Auto) [place] % (Auto) Lymph # [place] # Baso # Seg Neutrophils % Seg Neuts % (Manual) Lymphocytes % (Manual) Monocytes % (Manual) Eosinophils % (Manual) Basophils % (Manual) Nucleated RBC % Seg Neutrophils # Seg Neutrophils # Man Lymphocytes # (Manual) Monocytes # (Manual) Eosinophils # (Manual) Basophils # (Manual) PT INR Fibrinogen dRVVT Confirm Interp Factor V Activity POC ABG pH POC ABG pCO2 POC ABG pO2 ABG pO2 ABG HCO3 ABG Base Excess ABG Hemoglobin Oxyhemoglobin Sodium 136 L Potassium Chloride Carbon Dioxide BUN 58 H Creatinine 1.3 H Glucose 103 H POC Glucose 133 H 132 H Lactic Acid Calcium Phosphorus 2.00 L D Magnesium 1.60 L Direct Bilirubin AST ALT Alkaline Phosphatase Lactate Dehydrogenase Troponin T C-Reactive Protein Total Protein Albumin Prealbumin Triglycerides Cholesterol LDL Cholesterol Direct HDL Cholesterol PTH Intact Urine pH Urine WBC (Auto) Urine Creatinine Urine Total Protein Fluid Total Protein Vancomycin Trough Rheumatoid Factor Complement C4 Miscellaneous Test Crossmatch 02/05/17 02/05/17 02/05/17 00:01 04:00 06:42 WBC RBC Hgb Hct MCV MCH MCHC RDW Plt Count Lymph % (Auto) [place] % (Auto) Lymph # [place] # Baso # Seg Neutrophils % Seg Neuts % (Manual) Lymphocytes % (Manual) Monocytes % (Manual) Eosinophils % (Manual) Basophils % (Manual) Nucleated RBC % Seg Neutrophils # Seg Neutrophils # Man Lymphocytes # (Manual) Monocytes # (Manual) Eosinophils # (Manual) Basophils # (Manual) PT INR Fibrinogen dRVVT Confirm Interp Factor V Activity POC ABG pH POC ABG pCO2 POC ABG pO2 ABG pO2 ABG HCO3 ABG Base Excess ABG Hemoglobin Oxyhemoglobin Sodium Potassium Chloride Carbon Dioxide BUN 83 H Creatinine 1.8 H Glucose POC Glucose 119 H 110 H Lactic Acid Calcium 10.7 H Phosphorus Magnesium Direct Bilirubin AST ALT Alkaline Phosphatase Lactate Dehydrogenase Troponin T C-Reactive Protein Total Protein Albumin Prealbumin Triglycerides Cholesterol LDL Cholesterol Direct HDL Cholesterol PTH Intact Urine pH Urine WBC (Auto) Urine Creatinine Urine Total Protein Fluid Total Protein Vancomycin Trough Rheumatoid Factor Complement C4 Miscellaneous Test Crossmatch 02/05/17 02/05/17 02/05/17 09:59 11:47 23:44 WBC RBC 2.69 L Hgb 7.2 L Hct 22.5 L MCV MCH 27 L MCHC RDW 18.6 H Plt Count Lymph % (Auto) [place] % (Auto) 9.2 H Lymph # [place] # 0.9 H Baso # Seg Neutrophils % Seg Neuts % (Manual) Lymphocytes % (Manual) Monocytes % (Manual) Eosinophils % (Manual) Basophils % (Manual) Nucleated RBC % Seg Neutrophils # Seg Neutrophils # Man Lymphocytes # (Manual) Monocytes # (Manual) Eosinophils # (Manual) Basophils # (Manual) PT INR Fibrinogen dRVVT Confirm Interp Factor V Activity POC ABG pH POC ABG pCO2 POC ABG pO2 ABG pO2 ABG HCO3 ABG Base Excess ABG Hemoglobin Oxyhemoglobin Sodium Potassium Chloride Carbon Dioxide BUN Creatinine Glucose POC Glucose 130 H 123 H Lactic Acid Calcium Phosphorus Magnesium Direct Bilirubin AST ALT Alkaline Phosphatase Lactate Dehydrogenase Troponin T C-Reactive Protein Total Protein Albumin Prealbumin Triglycerides Cholesterol LDL Cholesterol Direct HDL Cholesterol PTH Intact Urine pH Urine WBC (Auto) Urine Creatinine Urine Total Protein Fluid Total Protein Vancomycin Trough Rheumatoid Factor Complement C4 Miscellaneous Test Crossmatch 02/06/17 02/06/17 02/06/17 04:45 05:58 12:01 WBC RBC Hgb Hct MCV MCH MCHC RDW Plt Count Lymph % (Auto) [place] % (Auto) Lymph # [place] # Baso # Seg Neutrophils % Seg Neuts % (Manual) Lymphocytes % (Manual) Monocytes % (Manual) Eosinophils % (Manual) Basophils % (Manual) Nucleated RBC % Seg Neutrophils # Seg Neutrophils # Man Lymphocytes # (Manual) Monocytes # (Manual) Eosinophils # (Manual) Basophils # (Manual) PT INR Fibrinogen dRVVT Confirm Interp Factor V Activity POC ABG pH POC ABG pCO2 POC ABG pO2 ABG pO2 ABG HCO3 ABG Base Excess ABG Hemoglobin Oxyhemoglobin Sodium Potassium Chloride Carbon Dioxide BUN 101 H Creatinine 2.0 H Glucose 102 H POC Glucose 115 H 132 H Lactic Acid Calcium 10.6 H Phosphorus Magnesium Direct Bilirubin AST ALT Alkaline Phosphatase 199 H Lactate Dehydrogenase Troponin T C-Reactive Protein Total Protein Albumin 1.4 L Prealbumin Triglycerides Cholesterol LDL Cholesterol Direct HDL Cholesterol PTH Intact Urine pH Urine WBC (Auto) Urine Creatinine Urine Total Protein Fluid Total Protein Vancomycin Trough Rheumatoid Factor Complement C4 Miscellaneous Test Crossmatch 02/06/17 02/06/17 02/07/17 17:41 23:32 05:04 WBC RBC Hgb Hct MCV MCH MCHC RDW Plt Count Lymph % (Auto) [place] % (Auto) Lymph # [place] # Baso # Seg Neutrophils % Seg Neuts % (Manual) Lymphocytes % (Manual) Monocytes % (Manual) Eosinophils % (Manual) Basophils % (Manual) Nucleated RBC % Seg Neutrophils # Seg Neutrophils # Man Lymphocytes # (Manual) Monocytes # (Manual) Eosinophils # (Manual) Basophils # (Manual) PT INR Fibrinogen dRVVT Confirm Interp Factor V Activity POC ABG pH POC ABG pCO2 POC ABG pO2 ABG pO2 ABG HCO3 ABG Base Excess ABG Hemoglobin Oxyhemoglobin Sodium Potassium Chloride Carbon Dioxide BUN Creatinine Glucose POC Glucose 134 H 128 H 119 H Lactic Acid Calcium Phosphorus Magnesium Direct Bilirubin AST ALT Alkaline Phosphatase Lactate Dehydrogenase Troponin T C-Reactive Protein Total Protein Albumin Prealbumin Triglycerides Cholesterol LDL Cholesterol Direct HDL Cholesterol PTH Intact Urine pH Urine WBC (Auto) Urine Creatinine Urine Total Protein Fluid Total Protein Vancomycin Trough Rheumatoid Factor Complement C4 Miscellaneous Test Crossmatch 02/07/17 02/07/17 02/07/17 06:30 11:20 17:13 WBC RBC Hgb Hct MCV MCH MCHC RDW Plt Count Lymph % (Auto) [place] % (Auto) Lymph # [place] # Baso # Seg Neutrophils % Seg Neuts % (Manual) Lymphocytes % (Manual) Monocytes % (Manual) Eosinophils % (Manual) Basophils % (Manual) Nucleated RBC % Seg Neutrophils # Seg Neutrophils # Man Lymphocytes # (Manual) Monocytes # (Manual) Eosinophils # (Manual) Basophils # (Manual) PT INR Fibrinogen dRVVT Confirm Interp Factor V Activity POC ABG pH POC ABG pCO2 POC ABG pO2 ABG pO2 ABG HCO3 ABG Base Excess ABG Hemoglobin Oxyhemoglobin Sodium Potassium 3.4 L Chloride Carbon Dioxide BUN 69 H Creatinine 1.5 H Glucose 105 H POC Glucose 117 H 110 H Lactic Acid Calcium Phosphorus Magnesium 1.50 L Direct Bilirubin AST ALT Alkaline Phosphatase Lactate Dehydrogenase Troponin T C-Reactive Protein Total Protein Albumin Prealbumin Triglycerides Cholesterol LDL Cholesterol Direct HDL Cholesterol PTH Intact Urine pH Urine WBC (Auto) Urine Creatinine Urine Total Protein Fluid Total Protein Vancomycin Trough Rheumatoid Factor Complement C4 Miscellaneous Test Crossmatch 02/07/17 02/08/17 02/08/17 20:47 04:00 11:43 WBC RBC Hgb Hct MCV MCH MCHC RDW Plt Count Lymph % (Auto) [place] % (Auto) Lymph # [place] # Baso # Seg Neutrophils % Seg Neuts % (Manual) Lymphocytes % (Manual) Monocytes % (Manual) Eosinophils % (Manual) Basophils % (Manual) Nucleated RBC % Seg Neutrophils # Seg Neutrophils # Man Lymphocytes # (Manual) Monocytes # (Manual) Eosinophils # (Manual) Basophils # (Manual) PT INR Fibrinogen dRVVT Confirm Interp Factor V Activity POC ABG pH POC ABG pCO2 POC ABG pO2 ABG pO2 ABG HCO3 ABG Base Excess ABG Hemoglobin Oxyhemoglobin Sodium Potassium Chloride Carbon Dioxide BUN 86 H Creatinine 1.7 H Glucose POC Glucose 115 H 122 H Lactic Acid Calcium Phosphorus Magnesium 1.60 L Direct Bilirubin AST ALT Alkaline Phosphatase Lactate Dehydrogenase Troponin T C-Reactive Protein Total Protein Albumin Prealbumin Triglycerides Cholesterol LDL Cholesterol Direct HDL Cholesterol PTH Intact Urine pH Urine WBC (Auto) Urine Creatinine Urine Total Protein Fluid Total Protein Vancomycin Trough Rheumatoid Factor Complement C4 Miscellaneous Test Crossmatch 02/08/17 02/09/17 02/09/17 17:36 05:44 11:30 WBC RBC Hgb Hct MCV MCH MCHC RDW Plt Count Lymph % (Auto) [place] % (Auto) Lymph # [place] # Baso # Seg Neutrophils % Seg Neuts % (Manual) Lymphocytes % (Manual) Monocytes % (Manual) Eosinophils % (Manual) Basophils % (Manual) Nucleated RBC % Seg Neutrophils # Seg Neutrophils # Man Lymphocytes # (Manual) Monocytes # (Manual) Eosinophils # (Manual) Basophils # (Manual) PT INR Fibrinogen dRVVT Confirm Interp Factor V Activity POC ABG pH POC ABG pCO2 POC ABG pO2 ABG pO2 ABG HCO3 ABG Base Excess ABG Hemoglobin Oxyhemoglobin Sodium Potassium Chloride Carbon Dioxide BUN Creatinine Glucose POC Glucose 125 H 117 H 120 H Lactic Acid Calcium Phosphorus Magnesium Direct Bilirubin AST ALT Alkaline Phosphatase Lactate Dehydrogenase Troponin T C-Reactive Protein Total Protein Albumin Prealbumin Triglycerides Cholesterol LDL Cholesterol Direct HDL Cholesterol PTH Intact Urine pH Urine WBC (Auto) Urine Creatinine Urine Total Protein Fluid Total Protein Vancomycin Trough Rheumatoid Factor Complement C4 Miscellaneous Test Crossmatch Allied health notes reviewed: RT (Has been on PS 15/, no desaturations today)
--- NOTE | 2017-02-09 13:19 | Progress Note ---
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 * He is hypotensive and currently on 3 pressors. * Discussed with infectious disease services. He has fungemia and needs his lines to be removed. * Spoke with vascular surgery as well. Patient is currently on multiple drips. We'll need to have another triple lumen Vas-Cath placed before his PermCath was removed. Family has decided not to do any further interventions at this point. * He is currentlya DNR as well. * He is noted to be acidotic. Most likely secondary to lactic acidosis. Shall add a bicarbonate drip for now. * Avoid potential nephrotoxins * His overall prognosis appears to be grim Subjective Date of service: 02/09/17 Principal diagnosis: Acute resp failure on MVS; S/P Acute CVA; Acute Encephalopathy; JUANITA Interval history: Patient remains in ICU. On the ventilator. Now on 100% FiO2. He is currently on 3 pressors. Unresponsive. Objective - Vital Signs Vital signs: Vital Signs - 12hr 02/09/17 02/09/17 02/09/17 01:30 02:00 02:30 Temperature Pulse Rate 120 H 118 H 112 H Pulse Rate [ From Monitor] Pulse Rate [ Right Lower Lobe] Respiratory 14 20 17 Rate Respiratory Rate [Right Lower Lobe] Blood Pressure 123/75 106/65 105/65 O2 Sat by Pulse 100 100 Oximetry O2 Sat by Pulse Oximetry [ Assessment] 02/09/17 02/09/17 02/09/17 03:00 03:30 04:00 Temperature 98.6 F Pulse Rate 118 H 134 H 130 H Pulse Rate [ 120 H From Monitor] Pulse Rate [ Right Lower Lobe] Respiratory 22 16 20 Rate Respiratory Rate [Right Lower Lobe] Blood Pressure 112/77 112/77 160/97 O2 Sat by Pulse 100 100 100 Oximetry O2 Sat by Pulse Oximetry [ Assessment] 02/09/17 02/09/17 02/09/17 04:30 05:00 05:30 Temperature Pulse Rate 125 H 123 H 135 H Pulse Rate [ From Monitor] Pulse Rate [ Right Lower Lobe] Respiratory 19 16 16 Rate Respiratory Rate [Right Lower Lobe] Blood Pressure 160/94 160/94 160/94 O2 Sat by Pulse 100 100 100 Oximetry O2 Sat by Pulse Oximetry [ Assessment] 02/09/17 02/09/17 02/09/17 06:00 06:30 07:00 Temperature Pulse Rate 127 H 128 H 129 H Pulse Rate [ From Monitor] Pulse Rate [ Right Lower Lobe] Respiratory 19 18 14 Rate Respiratory Rate [Right Lower Lobe] Blood Pressure 137/88 137/88 137/92 O2 Sat by Pulse 100 100 100 Oximetry O2 Sat by Pulse Oximetry [ Assessment] 02/09/17 02/09/17 02/09/17 07:30 07:54 08:00 Temperature 98.9 F Pulse Rate 132 H 132 H Pulse Rate [ From Monitor] Pulse Rate [ Right Lower Lobe] Respiratory 14 13 Rate Respiratory Rate [Right Lower Lobe] Blood Pressure 137/88 146/96 O2 Sat by Pulse 100 100 Oximetry O2 Sat by Pulse Oximetry [ Assessment] 02/09/17 02/09/17 02/09/17 08:30 08:45 08:56 Temperature Pulse Rate 134 H 122 H Pulse Rate [ From Monitor] Pulse Rate [ 127 H Right Lower Lobe] Respiratory 18 33 H Rate Respiratory 22 Rate [Right Lower Lobe] Blood Pressure 146/96 146/96 O2 Sat by Pulse 100 100 Oximetry O2 Sat by Pulse Oximetry [ Assessment] 02/09/17 02/09/17 02/09/17 09:00 09:01 09:30 Temperature Pulse Rate 131 H 124 H Pulse Rate [ From Monitor] Pulse Rate [ 122 H Right Lower Lobe] Respiratory 36 H 28 H Rate Respiratory 18 Rate [Right Lower Lobe] Blood Pressure 150/99 150/99 O2 Sat by Pulse 100 100 Oximetry O2 Sat by Pulse 100 Oximetry [ Assessment] 02/09/17 02/09/17 02/09/17 10:00 10:30 11:00 Temperature Pulse Rate 128 H 128 H 124 H Pulse Rate [ From Monitor] Pulse Rate [ Right Lower Lobe] Respiratory 6 L 15 35 H Rate Respiratory Rate [Right Lower Lobe] Blood Pressure 134/89 134/89 133/82 O2 Sat by Pulse 100 100 100 Oximetry O2 Sat by Pulse Oximetry [ Assessment] 02/09/17 11:59 Temperature 99.1 F Pulse Rate Pulse Rate [ From Monitor] Pulse Rate [ Right Lower Lobe] Respiratory Rate Respiratory Rate [Right Lower Lobe] Blood Pressure O2 Sat by Pulse Oximetry O2 Sat by Pulse Oximetry [ Assessment] - General Appearance General appearance: chronically ill, intubated, frail EENT: PERRL, mucous membranes moist Neck: no JVD, no thyromegaly, no carotid bruit, supple, other (right IJ PermCath in place) Respiratory: Present: Ronchi (bilateral scattered rhonchi) Cardiology: regular, normal heart rate, S1S2, no murmurs Gastrointestinal: normal, normoactive bowel sounds Integumentary: other (1+ edema) - Lab 02/05/17 09:59 02/08/17 04:00 Most recent lab results ABG pH 7.450 pH Units (7.350-7.450) 12/05/16 Unknown ABG pCO2 29.6 mm Hg 12/05/16 Unknown ABG pO2 75.2 mm Hg (80.0-90.0) L 12/05/16 Unknown ABG HCO3 20.1 mmol/L (20.0-26.0) 12/05/16 Unknown ABG O2 Saturation 96.8 % (95.0-99.0) 12/05/16 Unknown Calcium 10.0 mg/dL (8.4-10.2) 02/08/17 04:00 Phosphorus 2.90 mg/dL (2.5-4.5) 02/08/17 04:00 Magnesium 1.60 mg/dL (1.7-2.3) L 02/08/17 04:00 Urine Creatinine 19.7 mg/dL (0.1-20.0) 11/12/16 10:18 Urine Sodium 36 mEq/L 09/16/16 19:19 Urine Total Protein 16 mg/dL (5-11.8) H 09/16/16 19:19
[2017-02-09] MEDS: TRANSDERM-SCOP TD SCH (13:22)
[2017-02-09] MEDS: DURAGESIC TD SCH (13:22)
--- NOTE | 2017-02-09 13:26 | Progress Note ---
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 shift * Acute hypoxic respiratory failure * Left renal artery stenosis * Metabolic acidosis - improved * Anemia * Hyponatremia - multifactorial * tachycardia * Pleural effusion Plan: * Patient had an uneventful hemodialysis yesterday. * Continue dialysis on Wednesdays and Fridays schedule for now. * Patient's serum creatinine is noted to be low. However she is oliguric and remains volume overloaded. Needs to be maintained on dialysis at this time. . * Avoid nephrotoxins * Adjust meds for GFR less than 10 * No evidence of renal recovery at this time Subjective Date of service: 02/09/17 Principal diagnosis: Acute resp failure on MVS; S/P Acute CVA; Acute Encephalopathy; JUANITA Interval history: Patient remains in ICU. On the ventilator. Currently on 35% FiO2. Unresponsive. Objective - Vital Signs Vital signs: Vital Signs - 12hr 02/09/17 02/09/17 02/09/17 01:30 02:00 02:30 Temperature Pulse Rate 120 H 118 H 112 H Pulse Rate [ From Monitor] Pulse Rate [ Right Lower Lobe] Respiratory 14 20 17 Rate Respiratory Rate [Right Lower Lobe] Blood Pressure 123/75 106/65 105/65 O2 Sat by Pulse 100 100 Oximetry O2 Sat by Pulse Oximetry [ Assessment] 02/09/17 02/09/17 02/09/17 03:00 03:30 04:00 Temperature 98.6 F Pulse Rate 118 H 134 H 130 H Pulse Rate [ 120 H From Monitor] Pulse Rate [ Right Lower Lobe] Respiratory 22 16 20 Rate Respiratory Rate [Right Lower Lobe] Blood Pressure 112/77 112/77 160/97 O2 Sat by Pulse 100 100 100 Oximetry O2 Sat by Pulse Oximetry [ Assessment] 02/09/17 02/09/17 02/09/17 04:30 05:00 05:30 Temperature Pulse Rate 125 H 123 H 135 H Pulse Rate [ From Monitor] Pulse Rate [ Right Lower Lobe] Respiratory 19 16 16 Rate Respiratory Rate [Right Lower Lobe] Blood Pressure 160/94 160/94 160/94 O2 Sat by Pulse 100 100 100 Oximetry O2 Sat by Pulse Oximetry [ Assessment] 02/09/17 02/09/17 02/09/17 06:00 06:30 07:00 Temperature Pulse Rate 127 H 128 H 129 H Pulse Rate [ From Monitor] Pulse Rate [ Right Lower Lobe] Respiratory 19 18 14 Rate Respiratory Rate [Right Lower Lobe] Blood Pressure 137/88 137/88 137/92 O2 Sat by Pulse 100 100 100 Oximetry O2 Sat by Pulse Oximetry [ Assessment] 02/09/17 02/09/17 02/09/17 07:30 07:54 08:00 Temperature 98.9 F Pulse Rate 132 H 132 H Pulse Rate [ From Monitor] Pulse Rate [ Right Lower Lobe] Respiratory 14 13 Rate Respiratory Rate [Right Lower Lobe] Blood Pressure 137/88 146/96 O2 Sat by Pulse 100 100 Oximetry O2 Sat by Pulse Oximetry [ Assessment] 02/09/17 02/09/17 02/09/17 08:30 08:45 08:56 Temperature Pulse Rate 134 H 122 H Pulse Rate [ From Monitor] Pulse Rate [ 127 H Right Lower Lobe] Respiratory 18 33 H Rate Respiratory 22 Rate [Right Lower Lobe] Blood Pressure 146/96 146/96 O2 Sat by Pulse 100 100 Oximetry O2 Sat by Pulse Oximetry [ Assessment] 02/09/17 02/09/17 02/09/17 09:00 09:01 09:30 Temperature Pulse Rate 131 H 124 H Pulse Rate [ From Monitor] Pulse Rate [ 122 H Right Lower Lobe] Respiratory 36 H 28 H Rate Respiratory 18 Rate [Right Lower Lobe] Blood Pressure 150/99 150/99 O2 Sat by Pulse 100 100 Oximetry O2 Sat by Pulse 100 Oximetry [ Assessment] 02/09/17 02/09/17 02/09/17 10:00 10:30 11:00 Temperature Pulse Rate 128 H 128 H 124 H Pulse Rate [ From Monitor] Pulse Rate [ Right Lower Lobe] Respiratory 6 L 15 35 H Rate Respiratory Rate [Right Lower Lobe] Blood Pressure 134/89 134/89 133/82 O2 Sat by Pulse 100 100 100 Oximetry O2 Sat by Pulse Oximetry [ Assessment] 02/09/17 11:59 Temperature 99.1 F Pulse Rate Pulse Rate [ From Monitor] Pulse Rate [ Right Lower Lobe] Respiratory Rate Respiratory Rate [Right Lower Lobe] Blood Pressure O2 Sat by Pulse Oximetry O2 Sat by Pulse Oximetry [ Assessment] - General Appearance General appearance: well-developed, well-nourished, appears stated age, chronically ill EENT: ATNC Neck: other (tracheostomy tube in place. Connected to the ventilator. Left IJ PermCath in place) Respiratory: Present: Ronchi (bilateral scattered rhonchi) Cardiology: regular, normal heart rate Gastrointestinal: normoactive bowel sounds, other (collection bag noted in the right lower quadrant) Integumentary: no rash, other (1+ edema) - Lab 02/05/17 09:59 02/08/17 04:00 Most recent lab results ABG pH 7.450 pH Units (7.350-7.450) 12/05/16 Unknown ABG pCO2 29.6 mm Hg 12/05/16 Unknown ABG pO2 75.2 mm Hg (80.0-90.0) L 12/05/16 Unknown ABG HCO3 20.1 mmol/L (20.0-26.0) 12/05/16 Unknown ABG O2 Saturation 96.8 % (95.0-99.0) 12/05/16 Unknown Calcium 10.0 mg/dL (8.4-10.2) 02/08/17 04:00 Phosphorus 2.90 mg/dL (2.5-4.5) 02/08/17 04:00 Magnesium 1.60 mg/dL (1.7-2.3) L 02/08/17 04:00 Urine Creatinine 19.7 mg/dL (0.1-20.0) 11/12/16 10:18 Urine Sodium 36 mEq/L 09/16/16 19:19 Urine Total Protein 16 mg/dL (5-11.8) H 09/16/16 19:19
[2017-02-09] MEDS: LOPRESSOR IV PRN ×2 (13:32→21:09)
[2017-02-09] MEDS ORDERED: D5W 1,000 ML with SODIUM BICARBONATE 150 MEQ IV SCH (14:00)
[2017-02-09] MEDS: APRESOLINE IV PRN (15:08)
--- NOTE | 2017-02-09 17:16 | Progress Note ---
Assessment and Plan Assessment and Plan --Severe Sepsis with septic shock, recurrent. Patient with multiple episodes of sepsis. Initial episode due to presumed aspiration pneumonia and septic episode on 09/23 from candidemia then a third episode from peritonitis from gastric perforation from dislodged PEG +/-UTI. Patient was also noted to have had Candidemia with Blood cultures positive for Silvia albicans 09/23, 09/25 but negative on 09/30. Antibiotic discontinued on 12/05 per ID. patient is s/p R thoracentesis on 11/14, 240cc of serous fluid removed, cx of fluid was negative. Also, Stool negative for C. difficile --Surgical wound infection/gram-negative sepsis/candidemia/peritonitis. Continue wound care to ostomy sites --Acute hypoxic respiratory failure, status post tracheostomy Patient placed back on ventilation. Patient currently with CPAP mode. Patient failed T-piece trials. Tracheostomy tube leak. Pulmonary following --Acute massive CVA with mass effect; continue antiplatelets and statins CT showed continued evolution of left MCA infarct with slight mass effect and edema, and there is no hemorrhage -PRINCE showed hyperdynamic ventricle with ef of 75%, neither clot nor septal defect seen -MRA Brain shows near complete occlusion of M2 and M3 of the left MCA carotid doppler negative -Echo shows preserved systolic function but does show some left ventricular diastolic dysfunction -continue asa and statin --Oliguric acute kidney injury. Etiology secondary to ATN on CKD. Baseline creatinine is approximately 1.7. Today's BUN/Cr is 75/1.6 --Paroxysmal atrial fibrillation with rapid ventricular rate, failed cardioversion Continue current medications, Not a candidate for anticoagulation secondary to anemia, thrombocytopenia and massive CVA --Anemia; probably secondary to GI bleeding Patient received multiple units of PRBC in the past, hemoglobin currently stable -Toxic metabolic encephalopathy; supportive care --Diabetes mellitus type 2, Insulin/SSI --Severe protein caloric malnutrition, cont TPN --s/p Thrombocytopenia. Now resolved --DVT prophylaxis, SCDs, no pharmacological agent given anemia , thrombocytopenia, massive stroke --Full code status, very poor prognosis Subjective Date of service: 02/09/17 Principal diagnosis: Acute resp failure on MVS; S/P Acute CVA; Acute Encephalopathy; JUANITA Interval history: No interval change Objective - Constitutional Vitals: Vital Signs - 12hr 12/21/17 12/21/17 12/21/17 05:30 06:00 06:30 Temperature Pulse Rate 135 H 127 H 128 H Pulse Rate [ Right Lower Lobe] Respiratory 16 19 18 Rate Respiratory Rate [Right Lower Lobe] Blood Pressure 160/94 137/88 137/88 O2 Sat by Pulse 100 100 100 Oximetry O2 Sat by Pulse Oximetry [ Assessment] 02/09/17 02/09/17 02/09/17 07:00 07:30 07:54 Temperature 98.9 F Pulse Rate 129 H 132 H Pulse Rate [ Right Lower Lobe] Respiratory 14 14 Rate Respiratory Rate [Right Lower Lobe] Blood Pressure 137/92 137/88 O2 Sat by Pulse 100 100 Oximetry O2 Sat by Pulse Oximetry [ Assessment] 02/09/17 02/09/17 02/09/17 08:00 08:30 08:45 Temperature Pulse Rate 132 H 134 H Pulse Rate [ 127 H Right Lower Lobe] Respiratory 13 18 Rate Respiratory 22 Rate [Right Lower Lobe] Blood Pressure 146/96 146/96 O2 Sat by Pulse 100 100 Oximetry O2 Sat by Pulse Oximetry [ Assessment] 02/09/17 02/09/17 02/09/17 08:56 09:00 09:01 Temperature Pulse Rate 122 H 131 H Pulse Rate [ 122 H Right Lower Lobe] Respiratory 33 H 36 H Rate Respiratory 18 Rate [Right Lower Lobe] Blood Pressure 146/96 150/99 O2 Sat by Pulse 100 100 Oximetry O2 Sat by Pulse 100 Oximetry [ Assessment] 02/09/17 02/09/17 02/09/17 09:30 10:00 10:30 Temperature Pulse Rate 124 H 128 H 128 H Pulse Rate [ Right Lower Lobe] Respiratory 28 H 6 L 15 Rate Respiratory Rate [Right Lower Lobe] Blood Pressure 150/99 134/89 134/89 O2 Sat by Pulse 100 100 100 Oximetry O2 Sat by Pulse Oximetry [ Assessment] 02/09/17 02/09/17 02/09/17 11:00 11:30 11:59 Temperature 99.1 F Pulse Rate 124 H 131 H Pulse Rate [ Right Lower Lobe] Respiratory 35 H 37 H Rate Respiratory Rate [Right Lower Lobe] Blood Pressure 133/82 133/82 O2 Sat by Pulse 100 100 Oximetry O2 Sat by Pulse Oximetry [ Assessment] 02/09/17 02/09/17 02/09/17 12:00 12:30 13:00 Temperature Pulse Rate 134 H 133 H 136 H Pulse Rate [ Right Lower Lobe] Respiratory 43 H 41 H 47 H Rate Respiratory Rate [Right Lower Lobe] Blood Pressure 159/95 159/95 159/105 O2 Sat by Pulse 100 100 100 Oximetry O2 Sat by Pulse Oximetry [ Assessment] 02/09/17 02/09/17 02/09/17 13:30 13:32 14:00 Temperature Pulse Rate 117 H 135 H 123 H Pulse Rate [ Right Lower Lobe] Respiratory 43 H 46 H Rate Respiratory Rate [Right Lower Lobe] Blood Pressure 161/98 161/98 161/99 O2 Sat by Pulse 100 100 Oximetry O2 Sat by Pulse Oximetry [ Assessment] 02/09/17 02/09/17 02/09/17 14:30 15:00 15:08 Temperature Pulse Rate 123 H 124 H 127 H Pulse Rate [ Right Lower Lobe] Respiratory 20 20 Rate Respiratory Rate [Right Lower Lobe] Blood Pressure 161/99 164/95 164/95 O2 Sat by Pulse 100 100 Oximetry O2 Sat by Pulse Oximetry [ Assessment] 02/09/17 02/09/17 02/09/17 15:30 15:57 16:00 Temperature 99.5 F Pulse Rate 130 H 129 H Pulse Rate [ Right Lower Lobe] Respiratory 23 23 Rate Respiratory Rate [Right Lower Lobe] Blood Pressure 164/95 153/76 O2 Sat by Pulse 100 100 Oximetry O2 Sat by Pulse Oximetry [ Assessment] General appearance: Present: no acute distress, well-nourished - EENT Eyes: PERRL, EOM intact ENT: hearing intact, clear oral mucosa Ears: bilateral: normal - Neck Neck: supple, normal ROM - Respiratory Respiratory effort: normal Respiratory: bilateral: CTA - Breasts Breasts: normal - Cardiovascular Rhythm: regular Heart Sounds: Present: S1 & S2. Absent: gallop, rub Extremities: pulses intact, No edema, normal color, Full ROM - Gastrointestinal General gastrointestinal: Present: soft, non-tender, non-distended, normal bowel sounds - Genitourinary Female genitourinary: normal - Integumentary Integumentary: clear, warm, dry - Musculoskeletal Musculoskeletal: 1, strength equal bilaterally - Neurologic Neurologic: moves all extremities - Psychiatric Psychiatric: other (Unresponsive) - Allied health notes Allied health notes reviewed: nursing, case management - Labs CBC & Chem 7: 02/05/17 09:59 02/11/17 04:08 Labs: Abnormal lab results 1202/09/17 02/09/17 Range/Units 17:36 05:44 11:30 POC Glucose 125 H 117 H 120 H (70-105)
[2017-02-09] MEDS ORDERED: TPN ADULT IV SCH (20:00)
[2017-02-09] MEDS: TYLENOL FEEDTUBE PRN (21:08)
[2017-02-10] MEDS: HumuLIN R SUB-Q SCH ×4 (04:24→18:07)
[2017-02-10] MEDS: LOPRESSOR IV PRN ×3 (05:20→19:48)
[2017-02-10] MEDS: REGLAN IV SCH ×3 (05:21→21:29)
[2017-02-10] MEDS: DUONEB *Not for PRN Use IH SCH ×3 (08:33→19:16)
[2017-02-10 08:46] LABS: Calcium 10.2 mg/dL (8.4-10.2)
--- NOTE | 2017-02-10 09:23 | Progress Note ---
Assessment and Plan Assessment: 1) Recurrent SIRS: new fever. 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 gastric perf (PEG placed on 09/20) +/- TPN +/- central lines -TTE 10/07 no vegetations -PICC exchanged on 10/03 -fully treated with micafungin for 14 days last day 10/13 4) History CA-UTI s/p gutierrez exchanged 5) Diarrhea - ? etiology ? antibiotic-induced, not better. 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 from GI bleed 13) Recent abdominal wall abscess at surgical site-treated 14 ) Recent Enterococcal bacteremia from PICC line infection. 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 -worsening -S/P debridement at bedside - new wound cx 01/24 +Proteus and MDR Pseudomonas (resistant to meropenem and cefepime/sensitive to ceftazidime) -CRP=24 --> 8 16) Presumed VAP: sputum + MDR Pseudomonas / Proteus / pleural effusion s/p thoracentesis 17) Resp failure - better Plan: -continue ceftazidime IV total 3 weeks until 02/20/17 -continue wound care -monitor fever I will see her back on 02/[address] Means or your consultation, will follow up with you. Pauline Carias MD Infectious Diseases Specialist [facility] [id number] [phone] Subjective Date of service: 02/10/17 Principal diagnosis: Acute resp failure on MVS; S/P Acute CVA; Acute Encephalopathy; JUANITA Interval history: Interval history: Alert, tmax 100.5, remains tachy Microbiology: Blood cultures: 09/13 neg 8/4 Silvia albicans 09/25 Silvia / neg 10/07 neg 11/05 neg 11/07 ngtd 10 E faecalis 1 of 4 bottles 11/25 neg 11/ neg 01/09 ngtd Urine cultures: 09/10 neg 09/13 neg 8/4 10-100K mixed species 10/07 neg 11/05 VRE 11/07 mixed bacteria Respiratory cultures: 09/07 neg 09/13 neg / neg 11/07 MDR Pseudomonas 10 tracheal + VRE 01/09 Pseudomonas x 3 and Proteues Pleural effusion: ngtd Wound cultures: 10/17 abd wall wound purulence + Pseudomonas MDR 01/24 GNRs Stool cultures: 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 +NGT with greenish secretion Neck: +trach in place; supple, no thyromegaly or lymphadenopathy Lungs: brit coarse BS CV: tachy Abdomen: Soft, non-tender, +old PEG site no drainage. +iliostomy. Right sided Surgical site x 2 with ostomy bag draining small amount yellowish secretion Extremities: +peripheral edema Skin: sacral area wounds - per wound care STAGE 4 PRESSURE INJURY TO SACRAL MEASURES 7.5X6X2.5, WITH UNDERMINING FROM @9-1 OCLOCK-2.8CM-ULCER CLEANED WITH WOUND PRESENTATION MANAGER-ULCER NEW - Sacrum wound measuring 9x11cm. Necrotic tissue noted on the wound edges and in the wound bed Psych: somnolent . Neuro: alert non verbal on the vent. Lines: PICC / gutierrez - Constitutional Vitals: Vital Signs Temp Pulse Resp BP Pulse Ox 99 F 132 H 38 H 160/96 99 02/10/17 08:00 02/10/17 08:44 02/10/17 08:44 02/10/17 08:44 02/10/17 08:56 Temperature -Last 24 Hours Temperature 99 F Temperature 100.5 F Temperature 100.1 F Temperature 99.1 F Temperature 99.9 F Temperature 99.5 F Temperature 99.1 F - Labs CBC & Chem 7: 02/05/17 09:59 02/10/17 05:45 Labs: Abnormal lab results 02/09/17 02/09/17 02/10/17 Range/Units 11:30 23:45 05:45 BUN 85 H (7-17) mg/dL Creatinine 1.8 H (0.7-1.2) mg/dL Glucose 109 H (65-100) mg/dL POC Glucose 120 H 114 H (70-105) Magnesium 2.50 H (1.7-2.3) mg/dL 02/10/17 02/10/17 Range/Units 05:50 05:51 BUN (7-17) mg/dL Creatinine (0.7-1.2) mg/dL Glucose (65-100) mg/dL POC Glucose 189 H 106 H (70-105) Magnesium (1.7-2.3) mg/dL
[2017-02-10] MEDS: HEPARIN SUB-Q SCH ×2 (09:40→21:30)
[2017-02-10] MEDS: MAG-OX PO SCH (09:40)
[2017-02-10] MEDS: ROBINUL PO SCH ×2 (09:41→21:29)
[2017-02-10] MEDS: PROTONIX FEEDTUBE SCH (09:45)
[2017-02-10] MEDS ORDERED: NACL 0.9% 1000 ML 2,000 ML ONE (10:35)
--- NOTE | 2017-02-10 12:07 | Progress Note ---
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 * Blood pressure noted to be low normal. Shall add PRN albumin . * Continue dialysis on Wednesdays and Fridays schedule for now. * Patient's serum creatinine is noted to be low. However she is oliguric and remains volume overloaded. Needs to be maintained on dialysis at this time. . * Avoid nephrotoxins * Adjust meds for GFR less than 10 * No evidence of renal recovery at this time Subjective Date of service: 02/10/17 Principal diagnosis: Acute resp failure on MVS; S/P Acute CVA; Acute Encephalopathy; JUANITA Interval history: Patient is currently undergoing dialysis. Tolerating well. Remains nonverbal Objective - Vital Signs Vital signs: Vital Signs - 12hr 02/10/17 02/10/17 02/10/17 00:07 00:30 01:00 Temperature 100.1 F H Pulse Rate 114 H 113 H Pulse Rate [ Anterior Bilateral Throughout] Pulse Rate [ Apical] Pulse Rate [ From Monitor] Pulse Rate [ Left Dorsalis Pedis] Pulse Rate [ Left Radial] Pulse Rate [ Right Dorsalis Pedis] Pulse Rate [ Right Radial] Respiratory 16 17 Rate Respiratory Rate [Anterior Bilateral Throughout] Blood Pressure 122/83 99/50 O2 Sat by Pulse 100 99 Oximetry O2 Sat by Pulse Oximetry [ Assessment] O2 Sat by Pulse Oximetry [ Throughout] 02/10/17 02/10/17 02/10/17 01:30 02:00 02:30 Temperature Pulse Rate 123 H 120 H 119 H Pulse Rate [ Anterior Bilateral Throughout] Pulse Rate [ Apical] Pulse Rate [ From Monitor] Pulse Rate [ Left Dorsalis Pedis] Pulse Rate [ Left Radial] Pulse Rate [ Right Dorsalis Pedis] Pulse Rate [ Right Radial] Respiratory 24 17 18 Rate Respiratory Rate [Anterior Bilateral Throughout] Blood Pressure 99/50 141/86 99/50 O2 Sat by Pulse 99 100 100 Oximetry O2 Sat by Pulse Oximetry [ Assessment] O2 Sat by Pulse Oximetry [ Throughout] 02/10/17 02/10/17 02/10/17 03:00 03:30 03:45 Temperature Pulse Rate 120 H 120 H 114 H Pulse Rate [ Anterior Bilateral Throughout] Pulse Rate [ Apical] Pulse Rate [ From Monitor] Pulse Rate [ Left Dorsalis Pedis] Pulse Rate [ Left Radial] Pulse Rate [ Right Dorsalis Pedis] Pulse Rate [ Right Radial] Respiratory 20 19 Rate Respiratory Rate [Anterior Bilateral Throughout] Blood Pressure 141/87 141/87 141/87 O2 Sat by Pulse 100 100 100 Oximetry O2 Sat by Pulse Oximetry [ Assessment] O2 Sat by Pulse Oximetry [ Throughout] 02/10/17 02/10/17 02/10/17 04:00 04:30 05:00 Temperature 100.5 F H Pulse Rate 120 H 121 H 121 H Pulse Rate [ Anterior Bilateral Throughout] Pulse Rate [ 120 H Apical] Pulse Rate [ 120 H From Monitor] Pulse Rate [ 120 H Left Dorsalis Pedis] Pulse Rate [ 120 H Left Radial] Pulse Rate [ 120 H Right Dorsalis Pedis] Pulse Rate [ 120 H Right Radial] Respiratory 16 22 24 Rate Respiratory Rate [Anterior Bilateral Throughout] Blood Pressure 133/98 133/98 156/89 O2 Sat by Pulse 100 100 100 Oximetry O2 Sat by Pulse Oximetry [ Assessment] O2 Sat by Pulse Oximetry [ Throughout] 02/10/17 02/10/17 02/10/17 05:20 05:30 06:00 Temperature Pulse Rate 121 H 135 H 120 H Pulse Rate [ Anterior Bilateral Throughout] Pulse Rate [ Apical] Pulse Rate [ From Monitor] Pulse Rate [ Left Dorsalis Pedis] Pulse Rate [ Left Radial] Pulse Rate [ Right Dorsalis Pedis] Pulse Rate [ Right Radial] Respiratory 12 17 Rate Respiratory Rate [Anterior Bilateral Throughout] Blood Pressure 156/89 156/89 139/88 O2 Sat by Pulse 99 Oximetry O2 Sat by Pulse Oximetry [ Assessment] O2 Sat by Pulse Oximetry [ Throughout] 02/10/17 02/10/17 02/10/17 06:30 07:00 07:31 Temperature Pulse Rate 118 H 119 H 118 H Pulse Rate [ Anterior Bilateral Throughout] Pulse Rate [ Apical] Pulse Rate [ From Monitor] Pulse Rate [ Left Dorsalis Pedis] Pulse Rate [ Left Radial] Pulse Rate [ Right Dorsalis Pedis] Pulse Rate [ Right Radial] Respiratory 18 21 20 Rate Respiratory Rate [Anterior Bilateral Throughout] Blood Pressure 139/88 152/75 139/88 O2 Sat by Pulse 100 100 100 Oximetry O2 Sat by Pulse Oximetry [ Assessment] O2 Sat by Pulse Oximetry [ Throughout] 02/10/17 02/10/17 02/10/17 08:00 08:30 08:31 Temperature 99 F Pulse Rate 120 H 126 H 125 H Pulse Rate [ 127 H Anterior Bilateral Throughout] Pulse Rate [ Apical] Pulse Rate [ From Monitor] Pulse Rate [ Left Dorsalis Pedis] Pulse Rate [ Left Radial] Pulse Rate [ Right Dorsalis Pedis] Pulse Rate [ Right Radial] Respiratory 24 25 H Rate Respiratory 21 Rate [Anterior Bilateral Throughout] Blood Pressure 161/69 161/69 161/69 O2 Sat by Pulse 100 100 100 Oximetry O2 Sat by Pulse Oximetry [ Assessment] O2 Sat by Pulse Oximetry [ Throughout] 02/10/17 02/10/17 02/10/17 08:44 08:56 09:00 Temperature Pulse Rate 132 H 137 H Pulse Rate [ 132 H Anterior Bilateral Throughout] Pulse Rate [ Apical] Pulse Rate [ From Monitor] Pulse Rate [ Left Dorsalis Pedis] Pulse Rate [ Left Radial] Pulse Rate [ Right Dorsalis Pedis] Pulse Rate [ Right Radial] Respiratory 38 H 45 H Rate Respiratory 38 H Rate [Anterior Bilateral Throughout] Blood Pressure 160/96 150/95 O2 Sat by Pulse 99 99 Oximetry O2 Sat by Pulse 99 Oximetry [ Assessment] O2 Sat by Pulse Oximetry [ Throughout] 02/10/17 02/10/17 02/10/17 09:31 09:40 10:00 Temperature Pulse Rate 135 H 133 H 126 H Pulse Rate [ Anterior Bilateral Throughout] Pulse Rate [ Apical] Pulse Rate [ From Monitor] Pulse Rate [ Left Dorsalis Pedis] Pulse Rate [ Left Radial] Pulse Rate [ Right Dorsalis Pedis] Pulse Rate [ Right Radial] Respiratory 46 H 28 H Rate Respiratory Rate [Anterior Bilateral Throughout] Blood Pressure 150/95 160/95 164/105 O2 Sat by Pulse 98 100 Oximetry O2 Sat by Pulse Oximetry [ Assessment] O2 Sat by Pulse Oximetry [ Throughout] 02/10/17 02/10/17 02/10/17 10:45 11:00 11:15 Temperature 99.0 F Pulse Rate 117 H 126 H 130 H Pulse Rate [ Anterior Bilateral Throughout] Pulse Rate [ Apical] Pulse Rate [ From Monitor] Pulse Rate [ Left Dorsalis Pedis] Pulse Rate [ Left Radial] Pulse Rate [ Right Dorsalis Pedis] Pulse Rate [ Right Radial] Respiratory 28 H Rate Respiratory Rate [Anterior Bilateral Throughout] Blood Pressure 144/90 119/79 115/84 O2 Sat by Pulse Oximetry O2 Sat by Pulse Oximetry [ Assessment] O2 Sat by Pulse 100 Oximetry [ Throughout] 02/10/17 02/10/17 02/10/17 11:30 11:47 11:49 Temperature Pulse Rate 132 H 132 H 132 H Pulse Rate [ Anterior Bilateral Throughout] Pulse Rate [ Apical] Pulse Rate [ From Monitor] Pulse Rate [ Left Dorsalis Pedis] Pulse Rate [ Left Radial] Pulse Rate [ Right Dorsalis Pedis] Pulse Rate [ Right Radial] Respiratory 36 H Rate Respiratory Rate [Anterior Bilateral Throughout] Blood Pressure 105/77 106/76 106/76 O2 Sat by Pulse 100 Oximetry O2 Sat by Pulse Oximetry [ Assessment] O2 Sat by Pulse Oximetry [ Throughout] 02/10/17 12:02 Temperature Pulse Rate 134 H Pulse Rate [ Anterior Bilateral Throughout] Pulse Rate [ Apical] Pulse Rate [ From Monitor] Pulse Rate [ Left Dorsalis Pedis] Pulse Rate [ Left Radial] Pulse Rate [ Right Dorsalis Pedis] Pulse Rate [ Right Radial] Respiratory Rate Respiratory Rate [Anterior Bilateral Throughout] Blood Pressure 106/78 O2 Sat by Pulse Oximetry O2 Sat by Pulse Oximetry [ Assessment] O2 Sat by Pulse Oximetry [ Throughout] - General Appearance General appearance: well-developed, well-nourished, appears stated age EENT: PERRL, mucous membranes moist Neck: no JVD, other (tracheostomy tube in place) Respiratory: Present: Ronchi (bilateral scattered rhonchi) Cardiology: regular, normal heart rate, S1S2, no murmurs Gastrointestinal: normoactive bowel sounds, other (collection bag noted in the right flank area) Integumentary: other (1+ edema) - Lab 02/05/17 09:59 02/10/17 05:45 Most recent lab results ABG pH 7.450 pH Units (7.350-7.450) 12/05/16 Unknown ABG pCO2 29.6 mm Hg 12/05/16 Unknown ABG pO2 75.2 mm Hg (80.0-90.0) L 12/05/16 Unknown ABG HCO3 20.1 mmol/L (20.0-26.0) 12/05/16 Unknown ABG O2 Saturation 96.8 % (95.0-99.0) 12/05/16 Unknown Calcium 10.2 mg/dL (8.4-10.2) 02/10/17 05:45 Phosphorus 3.10 mg/dL (2.5-4.5) 02/10/17 05:45 Magnesium 2.50 mg/dL (1.7-2.3) H 02/10/17 05:45 Urine Creatinine 19.7 mg/dL (0.1-20.0) 11/12/16 10:18 Urine Sodium 36 mEq/L 09/16/16 19:19 Urine Total Protein 16 mg/dL (5-11.8) H 09/16/16 19:19
[2017-02-10] MEDS: HEPARIN IV PRN (14:17)
--- NOTE | 2017-02-10 14:32 | Progress Note ---
Assessment and Plan Patient is 46-year-old woman with a history of hypertension, diabetes mellitus, asthma, hyperlipidemia, chronic kidney disease and anxiety, who was brought in by family because she couldn't get her words out, her face was also twisted, she was admitted for acute CVA and accelerated hypertension, she had a hx of poor adherence with her medications, and uncontrolled hypertension. Patient's SBP on admission was noted be greater than 260. TPA was started but this it was discontinued after 5 minutes because her blood pressure became uncontrolled. The TPA was not initiated again because the patient was outside the TPA window. Patient has had a prolonged hospital stay complicated with recurrent severe sepsis. Patient with most recent event also status post cardiac arrest on 11/21/16 , with CPR and ROSC. Acute on chronic Hypoxemic Respiratory Failure Sepsis -recurrent s/p tracheostomy Hypertension Atrial Fibrillation with RVR Acute encephalopathy s/p CVA Oropharyngeal dysphagia Enterococcal bacteremia Sacral Decubitus Ulcer- unstageable s/p debridement Anemia Obesity JUANITA now on hemodialysis Enteric Fistula - VAP bundle addressed - continue NGT to LIS - continue wound care/wound vac per WCT - Vasopressor if MAP falls < 65mmHg - keep on with daily PSV trials and / or T-piece as tolerated - continue TPN administration (continue TPN; NPO except for meds) - continue airway clearance and secretion management - continue to wean FiO2 for sats > 94% - continue to monitor hemodynamics closely - continue HD/UF per nephrology - continue to follow electrolytes and correct as necessary - continue GI & VTE prophylaxis Transfuse 1 unit PRBC as needed to keep HgH>7g/dL .....she remains critically ill on life sustaining interventions including MVS and at risk for further deterioration including ...penitentiary prognosis remains poor - Patient Problems (1) Acute respiratory failure with hypoxia Current Visit: Yes Status: Acute (2) Acute blood loss anemia Current Visit: Yes Status: Resolved (3) Acute CVA (cerebrovascular accident) Current Visit: Yes Status: Acute (4) Chronic renal insufficiency Current Visit: Yes Status: Acute (5) Uncontrolled hypertension Current Visit: Yes Status: Acute (6) Leukocytosis (leucocytosis) Current Visit: Yes Status: Acute Qualifiers: Leukocytosis type: leukemoid reaction Qualified Code(s): D72.823 - Leukemoid reaction (7) Dislodged gastrostomy tube Current Visit: Yes Status: Acute (8) Fungemia Current Visit: Yes Status: Resolved (9) Cardiopulmonary arrest with successful resuscitation Current Visit: Yes Status: Acute Subjective Date of service: 02/10/17 Principal diagnosis: Acute resp failure on MVS; S/P Acute CVA; Acute Encephalopathy; JUANITA Interval history: Patient is seen today for: Acute resp failure on MVS; S/P Acute CVA; Acute Encephalopathy; JUANITA Seen and examined at bedside; 24hour events reviewed; nursing and respiratory care staff consulted; no adverse overnight events reported to me; she remains critically ill No fevers. Currently on PSV 15/5, with tidal volumes of about 300 Getting HD and tolerating it Vitals, labs, medications, chart reviewed. Discussed with RT Objective - Exam Narrative Exam: General appearance: somnolent non communicative, on the vent via trach in mild resp distress, no following commands Eyes: anicteric sclera, moist conjunctivae; PERRLA HENT: Atraumatic; oropharynx limited; Normal external ears. +NGT with greenish secretion Neck: +trach in place; supple, no thyromegaly or lymphadenopathy Lungs: brit coarse BS CV: tachy Abdomen: Soft, non-tender, +old PEG site no drainage. +iliostomy. Right sided Surgical site x 2 with ostomy bag draining small amount yellowish secretion Extremities: +peripheral edema Skin:Wound vac Neuro: alert non verbal on the vent. Lines: PICC / gutierrez Vital Signs - 12hr 02/10/17 02/10/17 02/10/17 03:00 03:30 03:45 Temperature Pulse Rate 120 H 120 H 114 H Pulse Rate [ Anterior Bilateral Throughout] Pulse Rate [ Apical] Pulse Rate [ From Monitor] Pulse Rate [ Left Dorsalis Pedis] Pulse Rate [ Left Radial] Pulse Rate [ Right Dorsalis Pedis] Pulse Rate [ Right Radial] Respiratory 20 19 Rate Respiratory Rate [Anterior Bilateral Throughout] Blood Pressure 141/87 141/87 141/87 O2 Sat by Pulse 100 100 100 Oximetry O2 Sat by Pulse Oximetry [ Assessment] O2 Sat by Pulse Oximetry [ Throughout] 02/10/17 02/10/17 02/10/17 04:00 04:30 05:00 Temperature 100.5 F H Pulse Rate 120 H 121 H 121 H Pulse Rate [ Anterior Bilateral Throughout] Pulse Rate [ 120 H Apical] Pulse Rate [ 120 H From Monitor] Pulse Rate [ 120 H Left Dorsalis Pedis] Pulse Rate [ 120 H Left Radial] Pulse Rate [ 120 H Right Dorsalis Pedis] Pulse Rate [ 120 H Right Radial] Respiratory 16 22 24 Rate Respiratory Rate [Anterior Bilateral Throughout] Blood Pressure 133/98 133/98 156/89 O2 Sat by Pulse 100 100 100 Oximetry O2 Sat by Pulse Oximetry [ Assessment] O2 Sat by Pulse Oximetry [ Throughout] 02/10/17 02/10/17 02/10/17 05:20 05:30 06:00 Temperature Pulse Rate 121 H 135 H 120 H Pulse Rate [ Anterior Bilateral Throughout] Pulse Rate [ Apical] Pulse Rate [ From Monitor] Pulse Rate [ Left Dorsalis Pedis] Pulse Rate [ Left Radial] Pulse Rate [ Right Dorsalis Pedis] Pulse Rate [ Right Radial] Respiratory 12 17 Rate Respiratory Rate [Anterior Bilateral Throughout] Blood Pressure 156/89 156/89 139/88 O2 Sat by Pulse 99 Oximetry O2 Sat by Pulse Oximetry [ Assessment] O2 Sat by Pulse Oximetry [ Throughout] 02/10/17 02/10/17 02/10/17 06:30 07:00 07:31 Temperature Pulse Rate 118 H 119 H 118 H Pulse Rate [ Anterior Bilateral Throughout] Pulse Rate [ Apical] Pulse Rate [ From Monitor] Pulse Rate [ Left Dorsalis Pedis] Pulse Rate [ Left Radial] Pulse Rate [ Right Dorsalis Pedis] Pulse Rate [ Right Radial] Respiratory 18 21 20 Rate Respiratory Rate [Anterior Bilateral Throughout] Blood Pressure 139/88 152/75 139/88 O2 Sat by Pulse 100 100 100 Oximetry O2 Sat by Pulse Oximetry [ Assessment] O2 Sat by Pulse Oximetry [ Throughout] 02/10/17 02/10/17 02/10/17 08:00 08:30 08:31 Temperature 99 F Pulse Rate 120 H 126 H 125 H Pulse Rate [ 127 H Anterior Bilateral Throughout] Pulse Rate [ Apical] Pulse Rate [ From Monitor] Pulse Rate [ Left Dorsalis Pedis] Pulse Rate [ Left Radial] Pulse Rate [ Right Dorsalis Pedis] Pulse Rate [ Right Radial] Respiratory 24 25 H Rate Respiratory 21 Rate [Anterior Bilateral Throughout] Blood Pressure 161/69 161/69 161/69 O2 Sat by Pulse 100 100 100 Oximetry O2 Sat by Pulse Oximetry [ Assessment] O2 Sat by Pulse Oximetry [ Throughout] 02/10/17 02/10/17 02/10/17 08:44 08:56 09:00 Temperature Pulse Rate 132 H 137 H Pulse Rate [ 132 H Anterior Bilateral Throughout] Pulse Rate [ Apical] Pulse Rate [ From Monitor] Pulse Rate [ Left Dorsalis Pedis] Pulse Rate [ Left Radial] Pulse Rate [ Right Dorsalis Pedis] Pulse Rate [ Right Radial] Respiratory 38 H 45 H Rate Respiratory 38 H Rate [Anterior Bilateral Throughout] Blood Pressure 160/96 150/95 O2 Sat by Pulse 99 99 Oximetry O2 Sat by Pulse 99 Oximetry [ Assessment] O2 Sat by Pulse Oximetry [ Throughout] 02/10/17 02/10/17 02/10/17 09:31 09:40 10:00 Temperature Pulse Rate 135 H 133 H 126 H Pulse Rate [ Anterior Bilateral Throughout] Pulse Rate [ Apical] Pulse Rate [ From Monitor] Pulse Rate [ Left Dorsalis Pedis] Pulse Rate [ Left Radial] Pulse Rate [ Right Dorsalis Pedis] Pulse Rate [ Right Radial] Respiratory 46 H 28 H Rate Respiratory Rate [Anterior Bilateral Throughout] Blood Pressure 150/95 160/95 164/105 O2 Sat by Pulse 98 100 Oximetry O2 Sat by Pulse Oximetry [ Assessment] O2 Sat by Pulse Oximetry [ Throughout] 02/10/17 02/10/17 02/10/17 10:31 10:45 11:00 Temperature 99.0 F Pulse Rate 118 H 117 H 120 H Pulse Rate [ Anterior Bilateral Throughout] Pulse Rate [ Apical] Pulse Rate [ From Monitor] Pulse Rate [ Left Dorsalis Pedis] Pulse Rate [ Left Radial] Pulse Rate [ Right Dorsalis Pedis] Pulse Rate [ Right Radial] Respiratory 39 H 28 H 34 H Rate Respiratory Rate [Anterior Bilateral Throughout] Blood Pressure 164/105 144/90 119/79 O2 Sat by Pulse 100 100 Oximetry O2 Sat by Pulse Oximetry [ Assessment] O2 Sat by Pulse 100 Oximetry [ Throughout] 02/10/17 02/10/17 02/10/17 11:15 11:30 11:47 Temperature Pulse Rate 130 H 132 H 132 H Pulse Rate [ Anterior Bilateral Throughout] Pulse Rate [ Apical] Pulse Rate [ From Monitor] Pulse Rate [ Left Dorsalis Pedis] Pulse Rate [ Left Radial] Pulse Rate [ Right Dorsalis Pedis] Pulse Rate [ Right Radial] Respiratory 44 H Rate Respiratory Rate [Anterior Bilateral Throughout] Blood Pressure 115/84 105/77 106/76 O2 Sat by Pulse 88 Oximetry O2 Sat by Pulse Oximetry [ Assessment] O2 Sat by Pulse Oximetry [ Throughout] 02/10/17 02/10/17 02/10/17 11:49 12:00 12:02 Temperature 99.0 F Pulse Rate 132 H 135 H 134 H Pulse Rate [ Anterior Bilateral Throughout] Pulse Rate [ Apical] Pulse Rate [ From Monitor] Pulse Rate [ Left Dorsalis Pedis] Pulse Rate [ Left Radial] Pulse Rate [ Right Dorsalis Pedis] Pulse Rate [ Right Radial] Respiratory 36 H 37 H Rate Respiratory Rate [Anterior Bilateral Throughout] Blood Pressure 106/76 106/78 106/78 O2 Sat by Pulse 100 100 Oximetry O2 Sat by Pulse Oximetry [ Assessment] O2 Sat by Pulse Oximetry [ Throughout] 02/10/17 02/10/17 02/10/17 12:16 12:30 12:31 Temperature Pulse Rate 132 H 130 H 128 H Pulse Rate [ Anterior Bilateral Throughout] Pulse Rate [ Apical] Pulse Rate [ From Monitor] Pulse Rate [ Left Dorsalis Pedis] Pulse Rate [ Left Radial] Pulse Rate [ Right Dorsalis Pedis] Pulse Rate [ Right Radial] Respiratory 40 H Rate Respiratory Rate [Anterior Bilateral Throughout] Blood Pressure 91/68 108/73 114/84 O2 Sat by Pulse Oximetry O2 Sat by Pulse Oximetry [ Assessment] O2 Sat by Pulse Oximetry [ Throughout] 02/10/17 02/10/17 02/10/17 12:45 13:00 13:10 Temperature Pulse Rate 128 H 136 H 131 H Pulse Rate [ Anterior Bilateral Throughout] Pulse Rate [ Apical] Pulse Rate [ From Monitor] Pulse Rate [ Left Dorsalis Pedis] Pulse Rate [ Left Radial] Pulse Rate [ Right Dorsalis Pedis] Pulse Rate [ Right Radial] Respiratory 48 H Rate Respiratory Rate [Anterior Bilateral Throughout] Blood Pressure 108/73 98/65 98/65 O2 Sat by Pulse Oximetry O2 Sat by Pulse Oximetry [ Assessment] O2 Sat by Pulse Oximetry [ Throughout] 02/10/17 02/10/17 02/10/17 13:15 13:30 13:45 Temperature Pulse Rate 132 H 132 H 129 H Pulse Rate [ Anterior Bilateral Throughout] Pulse Rate [ Apical] Pulse Rate [ From Monitor] Pulse Rate [ Left Dorsalis Pedis] Pulse Rate [ Left Radial] Pulse Rate [ Right Dorsalis Pedis] Pulse Rate [ Right Radial] Respiratory Rate Respiratory Rate [Anterior Bilateral Throughout] Blood Pressure 98/67 101/77 97/38 O2 Sat by Pulse Oximetry O2 Sat by Pulse Oximetry [ Assessment] O2 Sat by Pulse Oximetry [ Throughout] 02/10/17 14:00 Temperature 97.6 F Pulse Rate 130 H Pulse Rate [ Anterior Bilateral Throughout] Pulse Rate [ Apical] Pulse Rate [ From Monitor] Pulse Rate [ Left Dorsalis Pedis] Pulse Rate [ Left Radial] Pulse Rate [ Right Dorsalis Pedis] Pulse Rate [ Right Radial] Respiratory 35 H Rate Respiratory Rate [Anterior Bilateral Throughout] Blood Pressure 113/78 O2 Sat by Pulse Oximetry O2 Sat by Pulse Oximetry [ Assessment] O2 Sat by Pulse 99 Oximetry [ Throughout] Constitutional: appears uncomfortable, other (not tracking) Eyes: non-icteric, other (tracheostomy tube in midline of neck) ENT: oropharynx moist, oropharyngeal exudate pre Neck: supple, no lymphadenopathy, no JVD, other (no thyromegaly) Effort: mildly labored Ascultation: Bilateral: clear, diminished breath sounds (bases R>L), rales, rhonchi (and referred upper airway sounds) Percussion: Right: dull (base), Bilateral: not dull Cardiovascular: regular rate and rhythm, other (no rubs / murmurs) Gastrointestinal: hypoactive bowel sounds, soft, non-tender, non-distended, other (RLQ & LUQ stomas with colostomy bags) Integumentary: decubitus ulcer (sacral; stage 4 s/p surgical debridement), other (no rash; no cellulitis; poor turgor) Extremities: no cyanosis, pulses normal, no ischemia or petechiae, edema (1+ bilaterally) Neurologic: pupils equal and round, unable to assess, other (encephalopathic) Psychiatric: other (unable to assess) CBC and BMP: 02/05/17 09:59 02/10/17 05:45 ABG, PT/INR, D-dimer: ABG POC ABG pH 7.436 (7.35-7.45) 01/20/17 12: ABG pH 7.450 pH Units (7.350-7.450) 12/05/16 Unknown POC ABG pCO2 35.3 (35-45) 01/20/17 12: ABG pCO2 29.6 mm Hg 12/05/16 Unknown POC ABG pO2 70 (80-105) L 01/20/17 12:17 ABG pO2 75.2 mm Hg (80.0-90.0) L 12/05/16 Unknown POC ABG HCO3 23.8 01/20/17 12:17 POC ABG Total CO2 25 01/20/17 12:17 POC ABG O2 Sat 94 01/20/17 12:17 ABG O2 Saturation 96.8 % (95.0-99.0) 12/05/16 Unknown PT/INR, D-dimer PT 15.4 Sec. (12.2-14.9) H 01/13/17 15:50 INR 1.16 (0.87-1.13) H 01/13/17 15:50 Abnormal lab findings: Abnormal Labs 09/03/16 09/03/16 09/03/16 00:03 00:10 00:10 WBC 13.9 H RBC 5.95 H Hgb Hct 44.0 H MCV 74 L MCH 22 L MCHC RDW 17.5 H Plt Count Lymph % (Auto) Brown % (Auto) Lymph # Brown # Baso # Seg Neutrophils % Seg Neuts % (Manual) Lymphocytes % (Manual) 54.0 H Monocytes % (Manual) Eosinophils % (Manual) Basophils % (Manual) Nucleated RBC % Seg Neutrophils # Seg Neutrophils # Man Lymphocytes # (Manual) 7.5 H Monocytes # (Manual) Eosinophils # (Manual) Basophils # (Manual) PT INR Fibrinogen dRVVT Confirm Interp Factor V Activity POC ABG pH POC ABG pCO2 POC ABG pO2 ABG pO2 ABG HCO3 ABG Base Excess ABG Hemoglobin Oxyhemoglobin Sodium Potassium 2.8 L* Chloride Carbon Dioxide 21 L BUN Creatinine 1.7 H Glucose 159 H POC Glucose 177 H Lactic Acid Calcium Phosphorus Magnesium Direct Bilirubin AST ALT Alkaline Phosphatase Lactate Dehydrogenase Troponin T C-Reactive Protein Total Protein Albumin Prealbumin Triglycerides Cholesterol LDL Cholesterol Direct HDL Cholesterol PTH Intact Urine pH Urine WBC (Auto) Urine Creatinine Urine Total Protein Fluid Total Protein Vancomycin Trough Rheumatoid Factor Complement C4 Miscellaneous Test Crossmatch 09/03/16 09/03/16 09/03/16 12:12 15:07 16:20 WBC RBC Hgb Hct MCV MCH MCHC RDW Plt Count Lymph % (Auto) Brown % (Auto) Lymph # Brown # Baso # Seg Neutrophils % Seg Neuts % (Manual) Lymphocytes % (Manual) Monocytes % (Manual) Eosinophils % (Manual) Basophils % (Manual) Nucleated RBC % Seg Neutrophils # Seg Neutrophils # Man Lymphocytes # (Manual) Monocytes # (Manual) Eosinophils # (Manual) Basophils # (Manual) PT INR Fibrinogen dRVVT Confirm Interp Factor V Activity POC ABG pH 7.452 H POC ABG pCO2 POC ABG pO2 ABG pO2 ABG HCO3 ABG Base Excess ABG Hemoglobin Oxyhemoglobin Sodium Potassium Chloride Carbon Dioxide BUN Creatinine Glucose POC Glucose 178 H Lactic Acid Calcium Phosphorus 2.20 L Magnesium 1.60 L Direct Bilirubin AST ALT Alkaline Phosphatase Lactate Dehydrogenase Troponin T C-Reactive Protein Total Protein Albumin Prealbumin Triglycerides Cholesterol LDL Cholesterol Direct HDL Cholesterol PTH Intact Urine pH Urine WBC (Auto) Urine Creatinine Urine Total Protein Fluid Total Protein Vancomycin Trough Rheumatoid Factor Complement C4 Miscellaneous Test Crossmatch 09/03/16 09/03/16 09/03/16 17:57 17:58 23:50 WBC RBC Hgb Hct MCV MCH MCHC RDW Plt Count Lymph % (Auto) Brown % (Auto) Lymph # Brown # Baso # Seg Neutrophils % Seg Neuts % (Manual) Lymphocytes % (Manual) Monocytes % (Manual) Eosinophils % (Manual) Basophils % (Manual) Nucleated RBC % Seg Neutrophils # Seg Neutrophils # Man Lymphocytes # (Manual) Monocytes # (Manual) Eosinophils # (Manual) Basophils # (Manual) PT INR Fibrinogen dRVVT Confirm Interp Factor V Activity POC ABG pH POC ABG pCO2 POC ABG pO2 ABG pO2 ABG HCO3 ABG Base Excess ABG Hemoglobin Oxyhemoglobin Sodium Potassium Chloride Carbon Dioxide BUN Creatinine Glucose POC Glucose 162 H 145 H Lactic Acid Calcium Phosphorus 2.30 L Magnesium Direct Bilirubin AST ALT Alkaline Phosphatase Lactate Dehydrogenase Troponin T C-Reactive Protein Total Protein Albumin Prealbumin Triglycerides Cholesterol LDL Cholesterol Direct HDL Cholesterol PTH Intact Urine pH Urine WBC (Auto) Urine Creatinine Urine Total Protein Fluid Total Protein Vancomycin Trough Rheumatoid Factor Complement C4 Miscellaneous Test Crossmatch 09/04/16 09/04/16 09/04/16 03:31 03:31 05:42 WBC RBC Hgb 9.7 L D Hct MCV 72 L MCH 23 L MCHC RDW 17.5 H Plt Count Lymph % (Auto) 11.1 L Brown % (Auto) Lymph # Brown # Baso # Seg Neutrophils % 84.3 H Seg Neuts % (Manual) Lymphocytes % (Manual) Monocytes % (Manual) Eosinophils % (Manual) Basophils % (Manual) Nucleated RBC % Seg Neutrophils # 8.9 H Seg Neutrophils # Man Lymphocytes # (Manual) Monocytes # (Manual) Eosinophils # (Manual) Basophils # (Manual) PT INR Fibrinogen dRVVT Confirm Interp Factor V Activity POC ABG pH POC ABG pCO2 POC ABG pO2 ABG pO2 ABG HCO3 ABG Base Excess ABG Hemoglobin Oxyhemoglobin Sodium 135 L Potassium 2.9 L* Chloride 97.2 L Carbon Dioxide 19 L BUN Creatinine 1.7 H Glucose 170 H POC Glucose 152 H Lactic Acid Calcium Phosphorus Magnesium Direct Bilirubin AST ALT Alkaline Phosphatase Lactate Dehydrogenase Troponin T C-Reactive Protein Total Protein Albumin Prealbumin Triglycerides 160 H Cholesterol LDL Cholesterol Direct HDL Cholesterol 31 L PTH Intact Urine pH Urine WBC (Auto) Urine Creatinine Urine Total Protein Fluid Total Protein Vancomycin Trough Rheumatoid Factor Complement C4 Miscellaneous Test Crossmatch 09/04/16 09/04/16 09/04/16 11:34 17:46 23:29 WBC RBC Hgb Hct MCV MCH MCHC RDW Plt Count Lymph % (Auto) Brown % (Auto) Lymph # Brown # Baso # Seg Neutrophils % Seg Neuts % (Manual) Lymphocytes % (Manual) Monocytes % (Manual) Eosinophils % (Manual) Basophils % (Manual) Nucleated RBC % Seg Neutrophils # Seg Neutrophils # Man Lymphocytes # (Manual) Monocytes # (Manual) Eosinophils # (Manual) Basophils # (Manual) PT INR Fibrinogen dRVVT Confirm Interp Factor V Activity POC ABG pH POC ABG pCO2 POC ABG pO2 ABG pO2 ABG HCO3 ABG Base Excess ABG Hemoglobin Oxyhemoglobin Sodium Potassium Chloride Carbon Dioxide BUN Creatinine Glucose POC Glucose 165 H 210 H 139 H Lactic Acid Calcium Phosphorus Magnesium Direct Bilirubin AST ALT Alkaline Phosphatase Lactate Dehydrogenase Troponin T C-Reactive Protein Total Protein Albumin Prealbumin Triglycerides Cholesterol LDL Cholesterol Direct HDL Cholesterol PTH Intact Urine pH Urine WBC (Auto) Urine Creatinine Urine Total Protein Fluid Total Protein Vancomycin Trough Rheumatoid Factor Complement C4 Miscellaneous Test Crossmatch 09/05/16 09/05/16 09/05/16 04:05 04:05 05:38 WBC RBC Hgb Hct MCV 76 L D MCH 23 L MCHC RDW 17.8 H Plt Count Lymph % (Auto) Brown % (Auto) Lymph # Brown # Baso # Seg Neutrophils % Seg Neuts % (Manual) Lymphocytes % (Manual) Monocytes % (Manual) Eosinophils % (Manual) Basophils % (Manual) Nucleated RBC % Seg Neutrophils # Seg Neutrophils # Man Lymphocytes # (Manual) Monocytes # (Manual) Eosinophils # (Manual) Basophils # (Manual) PT INR Fibrinogen dRVVT Confirm Interp Factor V Activity POC ABG pH POC ABG pCO2 POC ABG pO2 ABG pO2 ABG HCO3 ABG Base Excess ABG Hemoglobin Oxyhemoglobin Sodium 134 L Potassium Chloride Carbon Dioxide 18 L BUN Creatinine 1.8 H Glucose 192 H POC Glucose 175 H Lactic Acid Calcium Phosphorus Magnesium Direct Bilirubin AST ALT Alkaline Phosphatase Lactate Dehydrogenase Troponin T C-Reactive Protein Total Protein Albumin Prealbumin Triglycerides Cholesterol LDL Cholesterol Direct HDL Cholesterol PTH Intact Urine pH Urine WBC (Auto) Urine Creatinine Urine Total Protein Fluid Total Protein Vancomycin Trough Rheumatoid Factor Complement C4 Miscellaneous Test Crossmatch 09/05/16 09/05/16 09/05/16 11:38 17:48 23:22 WBC RBC Hgb Hct MCV MCH MCHC RDW Plt Count Lymph % (Auto) Brown % (Auto) Lymph # Brown # Baso # Seg Neutrophils % Seg Neuts % (Manual) Lymphocytes % (Manual) Monocytes % (Manual) Eosinophils % (Manual) Basophils % (Manual) Nucleated RBC % Seg Neutrophils # Seg Neutrophils # Man Lymphocytes # (Manual) Monocytes # (Manual) Eosinophils # (Manual) Basophils # (Manual) PT INR Fibrinogen dRVVT Confirm Interp Factor V Activity POC ABG pH POC ABG pCO2 POC ABG pO2 ABG pO2 ABG HCO3 ABG Base Excess ABG Hemoglobin Oxyhemoglobin Sodium Potassium Chloride Carbon Dioxide BUN Creatinine Glucose POC Glucose 164 H 186 H 195 H Lactic Acid Calcium Phosphorus Magnesium Direct Bilirubin AST ALT Alkaline Phosphatase Lactate Dehydrogenase Troponin T C-Reactive Protein Total Protein Albumin Prealbumin Triglycerides Cholesterol LDL Cholesterol Direct HDL Cholesterol PTH Intact Urine pH Urine WBC (Auto) Urine Creatinine Urine Total Protein Fluid Total Protein Vancomycin Trough Rheumatoid Factor Complement C4 Miscellaneous Test Crossmatch 09/06/16 09/06/16 09/06/16 04:12 05:59 07:32 WBC RBC Hgb Hct MCV MCH MCHC RDW Plt Count Lymph % (Auto) Brown % (Auto) Lymph # Brown # Baso # Seg Neutrophils % Seg Neuts % (Manual) Lymphocytes % (Manual) Monocytes % (Manual) Eosinophils % (Manual) Basophils % (Manual) Nucleated RBC % Seg Neutrophils # Seg Neutrophils # Man Lymphocytes # (Manual) Monocytes # (Manual) Eosinophils # (Manual) Basophils # (Manual) PT INR Fibrinogen dRVVT Confirm Interp Factor V Activity POC ABG pH 7.514 H POC ABG pCO2 29.1 L POC ABG pO2 72 L ABG pO2 ABG HCO3 ABG Base Excess ABG Hemoglobin Oxyhemoglobin Sodium 133 L Potassium 3.4 L Chloride 94.9 L Carbon Dioxide 19 L BUN 30 H Creatinine 2.1 H Glucose 139 H POC Glucose 146 H Lactic Acid Calcium Phosphorus Magnesium Direct Bilirubin AST ALT Alkaline Phosphatase Lactate Dehydrogenase Troponin T C-Reactive Protein Total Protein Albumin Prealbumin Triglycerides Cholesterol LDL Cholesterol Direct HDL Cholesterol PTH Intact Urine pH Urine WBC (Auto) Urine Creatinine Urine Total Protein Fluid Total Protein Vancomycin Trough Rheumatoid Factor Complement C4 Miscellaneous Test Crossmatch 09/06/16 09/06/16 09/06/16 11:57 17:58 19:02 WBC RBC Hgb Hct MCV MCH MCHC RDW Plt Count Lymph % (Auto) Brown % (Auto) Lymph # Brown # Baso # Seg Neutrophils % Seg Neuts % (Manual) Lymphocytes % (Manual) Monocytes % (Manual) Eosinophils % (Manual) Basophils % (Manual) Nucleated RBC % Seg Neutrophils # Seg Neutrophils # Man Lymphocytes # (Manual) Monocytes # (Manual) Eosinophils # (Manual) Basophils # (Manual) PT INR Fibrinogen dRVVT Confirm Interp Factor V Activity POC ABG pH 7.465 H POC ABG pCO2 32.0 L POC ABG pO2 ABG pO2 ABG HCO3 ABG Base Excess ABG Hemoglobin Oxyhemoglobin Sodium Potassium Chloride Carbon Dioxide BUN Creatinine Glucose POC Glucose 165 H 160 H Lactic Acid Calcium Phosphorus Magnesium Direct Bilirubin AST ALT Alkaline Phosphatase Lactate Dehydrogenase Troponin T C-Reactive Protein Total Protein Albumin Prealbumin Triglycerides Cholesterol LDL Cholesterol Direct HDL Cholesterol PTH Intact Urine pH Urine WBC (Auto) Urine Creatinine Urine Total Protein Fluid Total Protein Vancomycin Trough Rheumatoid Factor Complement C4 Miscellaneous Test Crossmatch 09/06/16 09/07/16 09/07/16 23:45 02:47 02:47 WBC RBC Hgb Hct MCV MCH MCHC RDW Plt Count Lymph % (Auto) Brown % (Auto) Lymph # Brown # Baso # Seg Neutrophils % Seg Neuts % (Manual) Lymphocytes % (Manual) Monocytes % (Manual) Eosinophils % (Manual) Basophils % (Manual) Nucleated RBC % Seg Neutrophils # Seg Neutrophils # Man Lymphocytes # (Manual) Monocytes # (Manual) Eosinophils # (Manual) Basophils # (Manual) PT INR Fibrinogen dRVVT Confirm Interp Factor V Activity POC ABG pH POC ABG pCO2 POC ABG pO2 ABG pO2 ABG HCO3 ABG Base Excess ABG Hemoglobin Oxyhemoglobin Sodium Potassium Chloride Carbon Dioxide BUN Creatinine Glucose POC Glucose 204 H Lactic Acid Calcium Phosphorus Magnesium Direct Bilirubin AST ALT Alkaline Phosphatase Lactate Dehydrogenase Troponin T C-Reactive Protein Total Protein Albumin Prealbumin Triglycerides Cholesterol LDL Cholesterol Direct HDL Cholesterol PTH Intact Urine pH Urine WBC (Auto) 68.0 H Urine Creatinine 106.1 H Urine Total Protein Fluid Total Protein Vancomycin Trough Rheumatoid Factor Complement C4 Miscellaneous Test Crossmatch 09/07/16 09/07/16 09/07/16 04:50 06:19 06:39 WBC RBC Hgb Hct MCV MCH MCHC RDW Plt Count Lymph % (Auto) Brown % (Auto) Lymph # Brown # Baso # Seg Neutrophils % Seg Neuts % (Manual) Lymphocytes % (Manual) Monocytes % (Manual) Eosinophils % (Manual) Basophils % (Manual) Nucleated RBC % Seg Neutrophils # Seg Neutrophils # Man Lymphocytes # (Manual) Monocytes # (Manual) Eosinophils # (Manual) Basophils # (Manual) PT INR Fibrinogen dRVVT Confirm Interp Factor V Activity POC ABG pH 7.457 H POC ABG pCO2 32.1 L POC ABG pO2 76 L ABG pO2 ABG HCO3 ABG Base Excess ABG Hemoglobin Oxyhemoglobin Sodium 132 L Potassium Chloride 94.7 L Carbon Dioxide BUN 53 H Creatinine 2.9 H Glucose 151 H POC Glucose 149 H Lactic Acid Calcium Phosphorus Magnesium Direct Bilirubin AST ALT Alkaline Phosphatase Lactate Dehydrogenase Troponin T C-Reactive Protein Total Protein Albumin Prealbumin Triglycerides Cholesterol LDL Cholesterol Direct HDL Cholesterol PTH Intact Urine pH Urine WBC (Auto) Urine Creatinine Urine Total Protein Fluid Total Protein Vancomycin Trough Rheumatoid Factor Complement C4 Miscellaneous Test Crossmatch 09/07/16 09/07/16 09/07/16 09:20 11:43 11:43 WBC 19.4 H RBC Hgb 8.3 L Hct 26.4 L D MCV 72 L D MCH 22 L MCHC RDW 17.9 H Plt Count Lymph % (Auto) 8.5 L Brown % (Auto) Lymph # Brown # 1.0 H Baso # Seg Neutrophils % 85.8 H Seg Neuts % (Manual) Lymphocytes % (Manual) Monocytes % (Manual) Eosinophils % (Manual) Basophils % (Manual) Nucleated RBC % Seg Neutrophils # 16.6 H Seg Neutrophils # Man Lymphocytes # (Manual) Monocytes # (Manual) Eosinophils # (Manual) Basophils # (Manual) PT INR Fibrinogen dRVVT Confirm Interp Factor V Activity POC ABG pH POC ABG pCO2 POC ABG pO2 ABG pO2 ABG HCO3 ABG Base Excess ABG Hemoglobin Oxyhemoglobin Sodium 134 L Potassium Chloride 97.2 L Carbon Dioxide 20 L BUN 58 H Creatinine 2.9 H Glucose 147 H POC Glucose Lactic Acid Calcium Phosphorus 2.40 L Magnesium 2.40 H Direct Bilirubin AST ALT Alkaline Phosphatase Lactate Dehydrogenase Troponin T C-Reactive Protein Total Protein 5.8 L Albumin 2.2 L Prealbumin Triglycerides Cholesterol LDL Cholesterol Direct HDL Cholesterol PTH Intact Urine pH Urine WBC (Auto) Urine Creatinine Urine Total Protein Fluid Total Protein Vancomycin Trough Rheumatoid Factor Complement C4 58 H Miscellaneous Test Crossmatch 09/07/16 09/07/16 09/07/16 11:50 16:00 17:31 WBC RBC Hgb Hct MCV MCH MCHC RDW Plt Count Lymph % (Auto) Brown % (Auto) Lymph # Brown # Baso # Seg Neutrophils % Seg Neuts % (Manual) Lymphocytes % (Manual) Monocytes % (Manual) Eosinophils % (Manual) Basophils % (Manual) Nucleated RBC % Seg Neutrophils # Seg Neutrophils # Man Lymphocytes # (Manual) Monocytes # (Manual) Eosinophils # (Manual) Basophils # (Manual) PT INR Fibrinogen dRVVT Confirm Interp Factor V Activity POC ABG pH POC ABG pCO2 POC ABG pO2 158 H ABG pO2 ABG HCO3 ABG Base Excess ABG Hemoglobin Oxyhemoglobin Sodium Potassium Chloride Carbon Dioxide BUN Creatinine Glucose POC Glucose 175 H Lactic Acid Calcium Phosphorus Magnesium Direct Bilirubin AST ALT Alkaline Phosphatase Lactate Dehydrogenase Troponin T C-Reactive Protein Total Protein Albumin Prealbumin Triglycerides Cholesterol LDL Cholesterol Direct HDL Cholesterol PTH Intact Urine pH Urine WBC (Auto) Urine Creatinine 66.3 H Urine Total Protein Fluid Total Protein Vancomycin Trough Rheumatoid Factor Complement C4 Miscellaneous Test Crossmatch 09/07/16 09/08/16 09/08/16 23:50 05:46 06:18 WBC 17.8 H RBC 3.58 L Hgb 8.1 L Hct 25.5 L MCV 71 L MCH 23 L MCHC RDW 18.4 H Plt Count Lymph % (Auto) Brown % (Auto) Lymph # Brown # Baso # Seg Neutrophils % Seg Neuts % (Manual) 92.0 H Lymphocytes % (Manual) 6.0 L Monocytes % (Manual) Eosinophils % (Manual) Basophils % (Manual) Nucleated RBC % Seg Neutrophils # Seg Neutrophils # Man 16.4 H Lymphocytes # (Manual) 1.1 L Monocytes # (Manual) Eosinophils # (Manual) Basophils # (Manual) PT INR Fibrinogen dRVVT Confirm Interp Factor V Activity POC ABG pH POC ABG pCO2 34.3 L POC ABG pO2 71 L ABG pO2 ABG HCO3 ABG Base Excess ABG Hemoglobin Oxyhemoglobin Sodium Potassium Chloride Carbon Dioxide BUN Creatinine Glucose POC Glucose 216 H Lactic Acid Calcium Phosphorus Magnesium Direct Bilirubin AST ALT Alkaline Phosphatase Lactate Dehydrogenase Troponin T C-Reactive Protein Total Protein Albumin Prealbumin Triglycerides Cholesterol LDL Cholesterol Direct HDL Cholesterol PTH Intact Urine pH Urine WBC (Auto) Urine Creatinine Urine Total Protein Fluid Total Protein Vancomycin Trough Rheumatoid Factor Complement C4 Miscellaneous Test Crossmatch 09/08/16 09/08/16 09/08/16 06:18 06:51 10:55 WBC RBC Hgb Hct MCV MCH MCHC RDW Plt Count Lymph % (Auto) Brown % (Auto) Lymph # Brown # Baso # Seg Neutrophils % Seg Neuts % (Manual) Lymphocytes % (Manual) Monocytes % (Manual) Eosinophils % (Manual) Basophils % (Manual) Nucleated RBC % Seg Neutrophils # Seg Neutrophils # Man Lymphocytes # (Manual) Monocytes # (Manual) Eosinophils # (Manual) Basophils # (Manual) PT INR Fibrinogen dRVVT Confirm Interp Factor V Activity POC ABG pH POC ABG pCO2 POC ABG pO2 ABG pO2 ABG HCO3 ABG Base Excess ABG Hemoglobin Oxyhemoglobin Sodium 133 L Potassium Chloride 96.9 L Carbon Dioxide 20 L BUN 63 H Creatinine 2.7 H Glucose 195 H POC Glucose 204 H 169 H Lactic Acid Calcium Phosphorus Magnesium Direct Bilirubin AST ALT Alkaline Phosphatase Lactate Dehydrogenase Troponin T C-Reactive Protein Total Protein Albumin Prealbumin Triglycerides Cholesterol LDL Cholesterol Direct HDL Cholesterol PTH Intact Urine pH Urine WBC (Auto) Urine Creatinine Urine Total Protein Fluid Total Protein Vancomycin Trough Rheumatoid Factor Complement C4 Miscellaneous Test Crossmatch 09/08/16 09/08/16 09/08/16 11:48 11:48 11:48 WBC RBC Hgb Hct MCV MCH MCHC RDW Plt Count Lymph % (Auto) Brown % (Auto) Lymph # Brown # Baso # Seg Neutrophils % Seg Neuts % (Manual) Lymphocytes % (Manual) Monocytes % (Manual) Eosinophils % (Manual) Basophils % (Manual) Nucleated RBC % Seg Neutrophils # Seg Neutrophils # Man Lymphocytes # (Manual) Monocytes # (Manual) Eosinophils # (Manual) Basophils # (Manual) PT INR Fibrinogen 750 H dRVVT Confirm Interp Factor V Activity POC ABG pH POC ABG pCO2 POC ABG pO2 ABG pO2 ABG HCO3 ABG Base Excess ABG Hemoglobin Oxyhemoglobin Sodium Potassium Chloride Carbon Dioxide BUN Creatinine Glucose POC Glucose Lactic Acid Calcium Phosphorus Magnesium Direct Bilirubin AST ALT Alkaline Phosphatase Lactate Dehydrogenase Troponin T C-Reactive Protein 15.70 H Total Protein Albumin Prealbumin Triglycerides Cholesterol LDL Cholesterol Direct HDL Cholesterol PTH Intact Urine pH Urine WBC (Auto) Urine Creatinine Urine Total Protein Fluid Total Protein Vancomycin Trough Rheumatoid Factor 24 H Complement C4 Miscellaneous Test Crossmatch 09/08/16 09/08/16 09/09/16 15:35 18:25 00:24 WBC RBC Hgb Hct MCV MCH MCHC RDW Plt Count Lymph % (Auto) Brown % (Auto) Lymph # Brown # Baso # Seg Neutrophils % Seg Neuts % (Manual) Lymphocytes % (Manual) Monocytes % (Manual) Eosinophils % (Manual) Basophils % (Manual) Nucleated RBC % Seg Neutrophils # Seg Neutrophils # Man Lymphocytes # (Manual) Monocytes # (Manual) Eosinophils # (Manual) Basophils # (Manual) PT INR Fibrinogen dRVVT Confirm Interp Factor V Activity 182 H POC ABG pH POC ABG pCO2 POC ABG pO2 ABG pO2 ABG HCO3 ABG Base Excess ABG Hemoglobin Oxyhemoglobin Sodium Potassium Chloride Carbon Dioxide BUN Creatinine Glucose POC Glucose 184 H 216 H Lactic Acid Calcium Phosphorus Magnesium Direct Bilirubin AST ALT Alkaline Phosphatase Lactate Dehydrogenase Troponin T C-Reactive Protein Total Protein Albumin Prealbumin Triglycerides Cholesterol LDL Cholesterol Direct HDL Cholesterol PTH Intact Urine pH Urine WBC (Auto) Urine Creatinine Urine Total Protein Fluid Total Protein Vancomycin Trough Rheumatoid Factor Complement C4 Miscellaneous Test Crossmatch 09/09/16 09/09/16 09/09/16 03:00 03:00 04:04 WBC 27.9 H RBC Hgb 8.7 L Hct 28.1 L MCV 72 L MCH 22 L MCHC RDW 18.4 H Plt Count 485 H Lymph % (Auto) Brown % (Auto) Lymph # Brown # Baso # Seg Neutrophils % Seg Neuts % (Manual) 77.0 H Lymphocytes % (Manual) 9.0 L Monocytes % (Manual) Eosinophils % (Manual) Basophils % (Manual) Nucleated RBC % Seg Neutrophils # Seg Neutrophils # Man 21.5 H Lymphocytes # (Manual) Monocytes # (Manual) 2.0 H Eosinophils # (Manual) Basophils # (Manual) PT INR Fibrinogen dRVVT Confirm Interp Factor V Activity POC ABG pH POC ABG pCO2 POC ABG pO2 121 H ABG pO2 ABG HCO3 ABG Base Excess ABG Hemoglobin Oxyhemoglobin Sodium 135 L Potassium Chloride 96.3 L Carbon Dioxide 21 L BUN 83 H Creatinine 3.0 H Glucose 135 H POC Glucose Lactic Acid Calcium Phosphorus Magnesium Direct Bilirubin AST ALT Alkaline Phosphatase Lactate Dehydrogenase Troponin T C-Reactive Protein Total Protein Albumin Prealbumin Triglycerides Cholesterol LDL Cholesterol Direct HDL Cholesterol PTH Intact Urine pH Urine WBC (Auto) Urine Creatinine Urine Total Protein Fluid Total Protein Vancomycin Trough Rheumatoid Factor Complement C4 Miscellaneous Test Crossmatch 09/09/16 09/09/16 09/09/16 05:41 11:55 14:13 WBC RBC Hgb Hct MCV MCH MCHC RDW Plt Count Lymph % (Auto) Brown % (Auto) Lymph # Brown # Baso # Seg Neutrophils % Seg Neuts % (Manual) Lymphocytes % (Manual) Monocytes % (Manual) Eosinophils % (Manual) Basophils % (Manual) Nucleated RBC % Seg Neutrophils # Seg Neutrophils # Man Lymphocytes # (Manual) Monocytes # (Manual) Eosinophils # (Manual) Basophils # (Manual) PT INR Fibrinogen dRVVT Confirm Interp Factor V Activity POC ABG pH POC ABG pCO2 POC ABG pO2 ABG pO2 ABG HCO3 ABG Base Excess ABG Hemoglobin Oxyhemoglobin Sodium Potassium Chloride Carbon Dioxide BUN Creatinine Glucose POC Glucose 155 H 186 H Lactic Acid Calcium Phosphorus Magnesium Direct Bilirubin AST ALT Alkaline Phosphatase Lactate Dehydrogenase Troponin T C-Reactive Protein Total Protein Albumin Prealbumin Triglycerides Cholesterol LDL Cholesterol Direct HDL Cholesterol PTH Intact Urine pH Urine WBC (Auto) 25.0 H Urine Creatinine Urine Total Protein Fluid Total Protein Vancomycin Trough Rheumatoid Factor Complement C4 Miscellaneous Test Crossmatch 09/09/16 09/09/16 09/10/16 17:33 23:13 05:09 WBC RBC Hgb Hct MCV MCH MCHC RDW Plt Count Lymph % (Auto) Brown % (Auto) Lymph # Brown # Baso # Seg Neutrophils % Seg Neuts % (Manual) Lymphocytes % (Manual) Monocytes % (Manual) Eosinophils % (Manual) Basophils % (Manual) Nucleated RBC % Seg Neutrophils # Seg Neutrophils # Man Lymphocytes # (Manual) Monocytes # (Manual) Eosinophils # (Manual) Basophils # (Manual) PT INR Fibrinogen dRVVT Confirm Interp Factor V Activity POC ABG pH POC ABG pCO2 POC ABG pO2 74 L ABG pO2 ABG HCO3 ABG Base Excess ABG Hemoglobin Oxyhemoglobin Sodium Potassium Chloride Carbon Dioxide BUN Creatinine Glucose POC Glucose 211 H 215 H Lactic Acid Calcium Phosphorus Magnesium Direct Bilirubin AST ALT Alkaline Phosphatase Lactate Dehydrogenase Troponin T C-Reactive Protein Total Protein Albumin Prealbumin Triglycerides Cholesterol LDL Cholesterol Direct HDL Cholesterol PTH Intact Urine pH Urine WBC (Auto) Urine Creatinine Urine Total Protein Fluid Total Protein Vancomycin Trough Rheumatoid Factor Complement C4 Miscellaneous Test Crossmatch 09/10/16 09/10/16 09/10/16 05:17 05:17 11:31 WBC 15.8 H RBC 3.25 L Hgb 7.3 L Hct 22.9 L MCV 71 L MCH 23 L MCHC RDW 18.4 H Plt Count Lymph % (Auto) Brown % (Auto) Lymph # Brown # Baso # Seg Neutrophils % Seg Neuts % (Manual) 91.0 H Lymphocytes % (Manual) 4.0 L Monocytes % (Manual) Eosinophils % (Manual) Basophils % (Manual) Nucleated RBC % Seg Neutrophils # Seg Neutrophils # Man 14.4 H Lymphocytes # (Manual) 0.6 L Monocytes # (Manual) Eosinophils # (Manual) Basophils # (Manual) PT INR Fibrinogen dRVVT Confirm Interp Factor V Activity POC ABG pH POC ABG pCO2 POC ABG pO2 ABG pO2 ABG HCO3 ABG Base Excess ABG Hemoglobin Oxyhemoglobin Sodium Potassium Chloride Carbon Dioxide 21 L BUN 93 H Creatinine 2.9 H Glucose 146 H POC Glucose 188 H Lactic Acid Calcium 8.1 L Phosphorus Magnesium Direct Bilirubin AST ALT Alkaline Phosphatase Lactate Dehydrogenase Troponin T C-Reactive Protein Total Protein Albumin Prealbumin Triglycerides Cholesterol LDL Cholesterol Direct HDL Cholesterol PTH Intact Urine pH Urine WBC (Auto) Urine Creatinine Urine Total Protein Fluid Total Protein Vancomycin Trough Rheumatoid Factor Complement C4 Miscellaneous Test Crossmatch 09/10/16 09/10/16 09/10/16 13:17 17:20 23:32 WBC RBC Hgb Hct MCV MCH MCHC RDW Plt Count Lymph % (Auto) Brown % (Auto) Lymph # Brown # Baso # Seg Neutrophils % Seg Neuts % (Manual) Lymphocytes % (Manual) Monocytes % (Manual) Eosinophils % (Manual) Basophils % (Manual) Nucleated RBC % Seg Neutrophils # Seg Neutrophils # Man Lymphocytes # (Manual) Monocytes # (Manual) Eosinophils # (Manual) Basophils # (Manual) PT INR Fibrinogen dRVVT Confirm Interp Factor V Activity POC ABG pH POC ABG pCO2 POC ABG pO2 ABG pO2 ABG HCO3 ABG Base Excess ABG Hemoglobin Oxyhemoglobin Sodium Potassium Chloride Carbon Dioxide BUN Creatinine Glucose POC Glucose 199 H 186 H Lactic Acid Calcium Phosphorus Magnesium Direct Bilirubin AST ALT Alkaline Phosphatase Lactate Dehydrogenase Troponin T C-Reactive Protein Total Protein Albumin Prealbumin Triglycerides Cholesterol LDL Cholesterol Direct HDL Cholesterol PTH Intact Urine pH Urine WBC (Auto) Urine Creatinine Urine Total Protein Fluid Total Protein Vancomycin Trough Rheumatoid Factor Complement C4 Miscellaneous Test Crossmatch See Detail 09/11/16 09/11/16 09/11/16 05:10 05:10 05:17 WBC 28.4 H RBC Hgb 9.2 L Hct 29.3 L D MCV 73 L MCH 23 L MCHC RDW 18.9 H Plt Count 452 H Lymph % (Auto) Brown % (Auto) Lymph # Brown # Baso # Seg Neutrophils % Seg Neuts % (Manual) 89.5 H Lymphocytes % (Manual) 2.0 L Monocytes % (Manual) Eosinophils % (Manual) Basophils % (Manual) Nucleated RBC % Seg Neutrophils # Seg Neutrophils # Man 25.4 H Lymphocytes # (Manual) 0.6 L Monocytes # (Manual) 1.3 H Eosinophils # (Manual) Basophils # (Manual) PT INR Fibrinogen dRVVT Confirm Interp Factor V Activity POC ABG pH POC ABG pCO2 POC ABG pO2 ABG pO2 ABG HCO3 ABG Base Excess ABG Hemoglobin Oxyhemoglobin Sodium 136 L Potassium Chloride Carbon Dioxide 18 L BUN 107 H Creatinine 2.6 H Glucose 187 H POC Glucose 230 H Lactic Acid Calcium 8.3 L Phosphorus Magnesium Direct Bilirubin AST ALT Alkaline Phosphatase Lactate Dehydrogenase Troponin T C-Reactive Protein Total Protein Albumin Prealbumin Triglycerides Cholesterol LDL Cholesterol Direct HDL Cholesterol PTH Intact Urine pH Urine WBC (Auto) Urine Creatinine Urine Total Protein Fluid Total Protein Vancomycin Trough Rheumatoid Factor Complement C4 Miscellaneous Test Crossmatch 09/11/16 09/11/16 09/11/16 05:55 12:02 17:32 WBC RBC Hgb Hct MCV MCH MCHC RDW Plt Count Lymph % (Auto) Brown % (Auto) Lymph # Brown # Baso # Seg Neutrophils % Seg Neuts % (Manual) Lymphocytes % (Manual) Monocytes % (Manual) Eosinophils % (Manual) Basophils % (Manual) Nucleated RBC % Seg Neutrophils # Seg Neutrophils # Man Lymphocytes # (Manual) Monocytes # (Manual) Eosinophils # (Manual) Basophils # (Manual) PT INR Fibrinogen dRVVT Confirm Interp Factor V Activity POC ABG pH POC ABG pCO2 33.8 L POC ABG pO2 ABG pO2 ABG HCO3 ABG Base Excess ABG Hemoglobin Oxyhemoglobin Sodium Potassium Chloride Carbon Dioxide BUN Creatinine Glucose POC Glucose 191 H 239 H Lactic Acid Calcium Phosphorus Magnesium Direct Bilirubin AST ALT Alkaline Phosphatase Lactate Dehydrogenase Troponin T C-Reactive Protein Total Protein Albumin Prealbumin Triglycerides Cholesterol LDL Cholesterol Direct HDL Cholesterol PTH Intact Urine pH Urine WBC (Auto) Urine Creatinine Urine Total Protein Fluid Total Protein Vancomycin Trough Rheumatoid Factor Complement C4 Miscellaneous Test Crossmatch 09/11/16 09/12/16 09/12/16 23:52 05:09 05:32 WBC RBC Hgb Hct MCV MCH MCHC RDW Plt Count Lymph % (Auto) Brown % (Auto) Lymph # Brown # Baso # Seg Neutrophils % Seg Neuts % (Manual) Lymphocytes % (Manual) Monocytes % (Manual) Eosinophils % (Manual) Basophils % (Manual) Nucleated RBC % Seg Neutrophils # Seg Neutrophils # Man Lymphocytes # (Manual) Monocytes # (Manual) Eosinophils # (Manual) Basophils # (Manual) PT INR Fibrinogen dRVVT Confirm Interp Factor V Activity POC ABG pH POC ABG pCO2 34.6 L POC ABG pO2 ABG pO2 ABG HCO3 ABG Base Excess ABG Hemoglobin Oxyhemoglobin Sodium Potassium Chloride Carbon Dioxide BUN Creatinine Glucose POC Glucose 265 H 184 H Lactic Acid Calcium Phosphorus Magnesium Direct Bilirubin AST ALT Alkaline Phosphatase Lactate Dehydrogenase Troponin T C-Reactive Protein Total Protein Albumin Prealbumin Triglycerides Cholesterol LDL Cholesterol Direct HDL Cholesterol PTH Intact Urine pH Urine WBC (Auto) Urine Creatinine Urine Total Protein Fluid Total Protein Vancomycin Trough Rheumatoid Factor Complement C4 Miscellaneous Test Crossmatch 09/12/16 09/12/16 09/12/16 06:45 06:45 07:22 WBC 31.7 H RBC 3.54 L Hgb 8.3 L Hct 25.9 L MCV 73 L MCH 23 L MCHC RDW 18.9 H Plt Count Lymph % (Auto) Brown % (Auto) Lymph # Brown # Baso # Seg Neutrophils % Seg Neuts % (Manual) 88.5 H Lymphocytes % (Manual) 4.5 L Monocytes % (Manual) Eosinophils % (Manual) Basophils % (Manual) Nucleated RBC % Seg Neutrophils # Seg Neutrophils # Man 28.1 H Lymphocytes # (Manual) Monocytes # (Manual) 1.0 H Eosinophils # (Manual) Basophils # (Manual) PT INR Fibrinogen dRVVT Confirm Interp Factor V Activity POC ABG pH POC ABG pCO2 POC ABG pO2 ABG pO2 ABG HCO3 ABG Base Excess ABG Hemoglobin Oxyhemoglobin Sodium Potassium Chloride Carbon Dioxide 20 L BUN 115 H Creatinine 2.7 H Glucose 165 H POC Glucose Lactic Acid Calcium 8.0 L Phosphorus Magnesium Direct Bilirubin AST ALT Alkaline Phosphatase Lactate Dehydrogenase Troponin T C-Reactive Protein Total Protein Albumin Prealbumin Triglycerides 217 H Cholesterol LDL Cholesterol Direct HDL Cholesterol PTH Intact Urine pH Urine WBC (Auto) Urine Creatinine Urine Total Protein Fluid Total Protein Vancomycin Trough Rheumatoid Factor Complement C4 Miscellaneous Test Crossmatch 09/12/16 09/12/16 09/12/16 07:22 09:59 12:21 WBC RBC Hgb Hct MCV MCH MCHC RDW Plt Count Lymph % (Auto) Brown % (Auto) Lymph # Brown # Baso # Seg Neutrophils % Seg Neuts % (Manual) Lymphocytes % (Manual) Monocytes % (Manual) Eosinophils % (Manual) Basophils % (Manual) Nucleated RBC % Seg Neutrophils # Seg Neutrophils # Man Lymphocytes # (Manual) Monocytes # (Manual) Eosinophils # (Manual) Basophils # (Manual) PT INR Fibrinogen dRVVT Confirm Interp Positive H Factor V Activity POC ABG pH POC ABG pCO2 POC ABG pO2 ABG pO2 ABG HCO3 ABG Base Excess ABG Hemoglobin Oxyhemoglobin Sodium Potassium Chloride Carbon Dioxide BUN Creatinine Glucose POC Glucose 224 H Lactic Acid Calcium Phosphorus Magnesium Direct Bilirubin AST ALT Alkaline Phosphatase Lactate Dehydrogenase Troponin T C-Reactive Protein 1.70 H Total Protein Albumin Prealbumin Triglycerides Cholesterol LDL Cholesterol Direct HDL Cholesterol PTH Intact Urine pH Urine WBC (Auto) Urine Creatinine Urine Total Protein Fluid Total Protein Vancomycin Trough Rheumatoid Factor Complement C4 Miscellaneous Test Crossmatch 09/12/16 09/12/16 09/13/16 16:51 23:28 04:00 WBC 45.0 H* RBC Hgb 9.4 L Hct MCV 75 L MCH 23 L MCHC RDW 19.0 H Plt Count 470 H Lymph % (Auto) Brown % (Auto) Lymph # Brown # Baso # Seg Neutrophils % Seg Neuts % (Manual) 89.0 H Lymphocytes % (Manual) 5.0 L Monocytes % (Manual) Eosinophils % (Manual) Basophils % (Manual) Nucleated RBC % Seg Neutrophils # Seg Neutrophils # Man 40.1 H Lymphocytes # (Manual) Monocytes # (Manual) Eosinophils # (Manual) Basophils # (Manual) PT INR Fibrinogen dRVVT Confirm Interp Factor V Activity POC ABG pH POC ABG pCO2 POC ABG pO2 ABG pO2 ABG HCO3 ABG Base Excess ABG Hemoglobin Oxyhemoglobin Sodium Potassium Chloride Carbon Dioxide BUN Creatinine Glucose POC Glucose 169 H 150 H Lactic Acid Calcium Phosphorus Magnesium Direct Bilirubin AST ALT Alkaline Phosphatase Lactate Dehydrogenase Troponin T C-Reactive Protein Total Protein Albumin Prealbumin Triglycerides Cholesterol LDL Cholesterol Direct HDL Cholesterol PTH Intact Urine pH Urine WBC (Auto) Urine Creatinine Urine Total Protein Fluid Total Protein Vancomycin Trough Rheumatoid Factor Complement C4 Miscellaneous Test Crossmatch 09/13/16 09/13/16 09/13/16 04:00 11:26 17:31 WBC RBC Hgb Hct MCV MCH MCHC RDW Plt Count Lymph % (Auto) Brown % (Auto) Lymph # Brown # Baso # Seg Neutrophils % Seg Neuts % (Manual) Lymphocytes % (Manual) Monocytes % (Manual) Eosinophils % (Manual) Basophils % (Manual) Nucleated RBC % Seg Neutrophils # Seg Neutrophils # Man Lymphocytes # (Manual) Monocytes # (Manual) Eosinophils # (Manual) Basophils # (Manual) PT INR Fibrinogen dRVVT Confirm Interp Factor V Activity POC ABG pH POC ABG pCO2 POC ABG pO2 ABG pO2 ABG HCO3 ABG Base Excess ABG Hemoglobin Oxyhemoglobin Sodium Potassium Chloride Carbon Dioxide 20 L BUN 116 H Creatinine 3.0 H Glucose 172 H POC Glucose 140 H 183 H Lactic Acid Calcium Phosphorus Magnesium Direct Bilirubin AST ALT Alkaline Phosphatase Lactate Dehydrogenase Troponin T C-Reactive Protein Total Protein 6.2 L Albumin 2.9 L Prealbumin Triglycerides Cholesterol LDL Cholesterol Direct HDL Cholesterol PTH Intact Urine pH Urine WBC (Auto) Urine Creatinine Urine Total Protein Fluid Total Protein Vancomycin Trough Rheumatoid Factor Complement C4 Miscellaneous Test Crossmatch 09/13/16 09/14/16 09/14/16 23:23 04:06 04:07 WBC 29.4 H RBC Hgb 8.9 L Hct 27.3 L MCV 75 L MCH 24 L MCHC RDW 19.1 H Plt Count Lymph % (Auto) Brown % (Auto) Lymph # Brown # Baso # Seg Neutrophils % Seg Neuts % (Manual) 84.0 H Lymphocytes % (Manual) 6.0 L Monocytes % (Manual) 9.0 H Eosinophils % (Manual) Basophils % (Manual) Nucleated RBC % Seg Neutrophils # Seg Neutrophils # Man 24.7 H Lymphocytes # (Manual) Monocytes # (Manual) 2.6 H Eosinophils # (Manual) Basophils # (Manual) PT INR Fibrinogen dRVVT Confirm Interp Factor V Activity POC ABG pH 7.342 L POC ABG pCO2 POC ABG pO2 116 H ABG pO2 ABG HCO3 ABG Base Excess ABG Hemoglobin Oxyhemoglobin Sodium Potassium Chloride Carbon Dioxide BUN Creatinine Glucose POC Glucose 154 H Lactic Acid Calcium Phosphorus Magnesium Direct Bilirubin AST ALT Alkaline Phosphatase Lactate Dehydrogenase Troponin T C-Reactive Protein Total Protein Albumin Prealbumin Triglycerides Cholesterol LDL Cholesterol Direct HDL Cholesterol PTH Intact Urine pH Urine WBC (Auto) Urine Creatinine Urine Total Protein Fluid Total Protein Vancomycin Trough Rheumatoid Factor Complement C4 Miscellaneous Test Crossmatch 09/14/16 09/14/16 09/14/16 04:07 05:29 12:19 WBC RBC Hgb Hct MCV MCH MCHC RDW Plt Count Lymph % (Auto) Brown % (Auto) Lymph # Brown # Baso # Seg Neutrophils % Seg Neuts % (Manual) Lymphocytes % (Manual) Monocytes % (Manual) Eosinophils % (Manual) Basophils % (Manual) Nucleated RBC % Seg Neutrophils # Seg Neutrophils # Man Lymphocytes # (Manual) Monocytes # (Manual) Eosinophils # (Manual) Basophils # (Manual) PT INR Fibrinogen dRVVT Confirm Interp Factor V Activity POC ABG pH POC ABG pCO2 POC ABG pO2 ABG pO2 ABG HCO3 ABG Base Excess ABG Hemoglobin Oxyhemoglobin Sodium 136 L Potassium Chloride Carbon Dioxide 18 L BUN 121 H Creatinine 2.8 H Glucose 214 H POC Glucose 239 H 181 H Lactic Acid Calcium Phosphorus Magnesium Direct Bilirubin AST ALT Alkaline Phosphatase Lactate Dehydrogenase Troponin T C-Reactive Protein Total Protein Albumin Prealbumin Triglycerides Cholesterol LDL Cholesterol Direct HDL Cholesterol PTH Intact Urine pH Urine WBC (Auto) Urine Creatinine Urine Total Protein Fluid Total Protein Vancomycin Trough Rheumatoid Factor Complement C4 Miscellaneous Test Crossmatch 09/14/16 09/14/16 09/15/16 18:12 23:37 05:00 WBC 26.1 H RBC 3.05 L Hgb 7.2 L Hct 22.9 L MCV 75 L MCH 24 L MCHC RDW 19.0 H Plt Count Lymph % (Auto) Brown % (Auto) Lymph # Brown # Baso # Seg Neutrophils % Seg Neuts % (Manual) Lymphocytes % (Manual) Monocytes % (Manual) Eosinophils % (Manual) Basophils % (Manual) Nucleated RBC % Seg Neutrophils # Seg Neutrophils # Man Lymphocytes # (Manual) Monocytes # (Manual) Eosinophils # (Manual) Basophils # (Manual) PT INR Fibrinogen dRVVT Confirm Interp Factor V Activity POC ABG pH POC ABG pCO2 POC ABG pO2 ABG pO2 ABG HCO3 ABG Base Excess ABG Hemoglobin Oxyhemoglobin Sodium Potassium Chloride Carbon Dioxide BUN Creatinine Glucose POC Glucose 266 H 154 H Lactic Acid Calcium Phosphorus Magnesium Direct Bilirubin AST ALT Alkaline Phosphatase Lactate Dehydrogenase Troponin T C-Reactive Protein Total Protein Albumin Prealbumin Triglycerides Cholesterol LDL Cholesterol Direct HDL Cholesterol PTH Intact Urine pH Urine WBC (Auto) Urine Creatinine Urine Total Protein Fluid Total Protein Vancomycin Trough Rheumatoid Factor Complement C4 Miscellaneous Test Crossmatch 09/15/16 09/15/16 09/15/16 05:00 05:17 12:45 WBC RBC Hgb Hct MCV MCH MCHC RDW Plt Count Lymph % (Auto) Brown % (Auto) Lymph # Brown # Baso # Seg Neutrophils % Seg Neuts % (Manual) Lymphocytes % (Manual) Monocytes % (Manual) Eosinophils % (Manual) Basophils % (Manual) Nucleated RBC % Seg Neutrophils # Seg Neutrophils # Man Lymphocytes # (Manual) Monocytes # (Manual) Eosinophils # (Manual) Basophils # (Manual) PT INR Fibrinogen dRVVT Confirm Interp Factor V Activity POC ABG pH POC ABG pCO2 POC ABG pO2 ABG pO2 ABG HCO3 ABG Base Excess ABG Hemoglobin Oxyhemoglobin Sodium Potassium 5.2 H Chloride Carbon Dioxide 18 L BUN 139 H Creatinine 3.7 H Glucose 227 H POC Glucose 226 H 244 H Lactic Acid Calcium 8.3 L Phosphorus Magnesium Direct Bilirubin AST ALT Alkaline Phosphatase Lactate Dehydrogenase Troponin T C-Reactive Protein Total Protein Albumin Prealbumin Triglycerides Cholesterol LDL Cholesterol Direct HDL Cholesterol PTH Intact Urine pH Urine WBC (Auto) Urine Creatinine Urine Total Protein Fluid Total Protein Vancomycin Trough Rheumatoid Factor Complement C4 Miscellaneous Test Crossmatch 09/15/16 09/15/16 09/15/16 14:32 17:33 23:35 WBC RBC Hgb Hct MCV MCH MCHC RDW Plt Count Lymph % (Auto) Brown % (Auto) Lymph # Brown # Baso # Seg Neutrophils % Seg Neuts % (Manual) Lymphocytes % (Manual) Monocytes % (Manual) Eosinophils % (Manual) Basophils % (Manual) Nucleated RBC % Seg Neutrophils # Seg Neutrophils # Man Lymphocytes # (Manual) Monocytes # (Manual) Eosinophils # (Manual) Basophils # (Manual) PT INR Fibrinogen dRVVT Confirm Interp Factor V Activity POC ABG pH POC ABG pCO2 27.7 L POC ABG pO2 120 H ABG pO2 ABG HCO3 ABG Base Excess ABG Hemoglobin Oxyhemoglobin Sodium Potassium Chloride Carbon Dioxide BUN Creatinine Glucose POC Glucose 232 H 167 H Lactic Acid Calcium Phosphorus Magnesium Direct Bilirubin AST ALT Alkaline Phosphatase Lactate Dehydrogenase Troponin T C-Reactive Protein Total Protein Albumin Prealbumin Triglycerides Cholesterol LDL Cholesterol Direct HDL Cholesterol PTH Intact Urine pH Urine WBC (Auto) Urine Creatinine Urine Total Protein Fluid Total Protein Vancomycin Trough Rheumatoid Factor Complement C4 Miscellaneous Test Crossmatch 09/16/16 09/16/16 09/16/16 03:58 10:27 10:27 WBC 19.0 H RBC 2.77 L Hgb 6.5 L Hct 20.9 L MCV 76 L MCH 23 L MCHC RDW 19.3 H Plt Count Lymph % (Auto) 11.0 L Brown % (Auto) Lymph # Brown # 1.1 H Baso # Seg Neutrophils % 82.5 H Seg Neuts % (Manual) Lymphocytes % (Manual) Monocytes % (Manual) Eosinophils % (Manual) Basophils % (Manual) Nucleated RBC % Seg Neutrophils # 15.7 H Seg Neutrophils # Man Lymphocytes # (Manual) Monocytes # (Manual) Eosinophils # (Manual) Basophils # (Manual) PT INR Fibrinogen dRVVT Confirm Interp Factor V Activity POC ABG pH POC ABG pCO2 POC ABG pO2 ABG pO2 ABG HCO3 ABG Base Excess ABG Hemoglobin Oxyhemoglobin Sodium Potassium Chloride 109.3 H Carbon Dioxide 18 L BUN 139 H Creatinine 4.1 H Glucose 144 H POC Glucose 146 H Lactic Acid Calcium 8.1 L Phosphorus Magnesium Direct Bilirubin AST ALT Alkaline Phosphatase Lactate Dehydrogenase Troponin T C-Reactive Protein Total Protein Albumin Prealbumin Triglycerides Cholesterol LDL Cholesterol Direct HDL Cholesterol PTH Intact Urine pH Urine WBC (Auto) Urine Creatinine Urine Total Protein Fluid Total Protein Vancomycin Trough Rheumatoid Factor Complement C4 Miscellaneous Test Crossmatch 09/16/16 09/16/16 09/16/16 12:04 12:10 13:55 WBC RBC Hgb Hct MCV MCH MCHC RDW Plt Count Lymph % (Auto) Brown % (Auto) Lymph # Brown # Baso # Seg Neutrophils % Seg Neuts % (Manual) Lymphocytes % (Manual) Monocytes % (Manual) Eosinophils % (Manual) Basophils % (Manual) Nucleated RBC % Seg Neutrophils # Seg Neutrophils # Man Lymphocytes # (Manual) Monocytes # (Manual) Eosinophils # (Manual) Basophils # (Manual) PT INR Fibrinogen dRVVT Confirm Interp Factor V Activity POC ABG pH POC ABG pCO2 32.9 L POC ABG pO2 ABG pO2 ABG HCO3 ABG Base Excess ABG Hemoglobin Oxyhemoglobin Sodium Potassium Chloride Carbon Dioxide BUN Creatinine Glucose POC Glucose 185 H Lactic Acid Calcium Phosphorus Magnesium Direct Bilirubin AST ALT Alkaline Phosphatase Lactate Dehydrogenase Troponin T C-Reactive Protein Total Protein Albumin Prealbumin Triglycerides Cholesterol LDL Cholesterol Direct HDL Cholesterol PTH Intact Urine pH Urine WBC (Auto) Urine Creatinine Urine Total Protein Fluid Total Protein Vancomycin Trough Rheumatoid Factor Complement C4 Miscellaneous Test Crossmatch See Detail 09/16/16 09/16/16 09/16/16 17:55 19:19 23:48 WBC RBC Hgb Hct MCV MCH MCHC RDW Plt Count Lymph % (Auto) Brown % (Auto) Lymph # Brown # Baso # Seg Neutrophils % Seg Neuts % (Manual) Lymphocytes % (Manual) Monocytes % (Manual) Eosinophils % (Manual) Basophils % (Manual) Nucleated RBC % Seg Neutrophils # Seg Neutrophils # Man Lymphocytes # (Manual) Monocytes # (Manual) Eosinophils # (Manual) Basophils # (Manual) PT INR Fibrinogen dRVVT Confirm Interp Factor V Activity POC ABG pH POC ABG pCO2 POC ABG pO2 ABG pO2 ABG HCO3 ABG Base Excess ABG Hemoglobin Oxyhemoglobin Sodium Potassium Chloride Carbon Dioxide BUN Creatinine Glucose POC Glucose 222 H 107 H Lactic Acid Calcium Phosphorus Magnesium Direct Bilirubin AST ALT Alkaline Phosphatase Lactate Dehydrogenase Troponin T C-Reactive Protein Total Protein Albumin Prealbumin Triglycerides Cholesterol LDL Cholesterol Direct HDL Cholesterol PTH Intact Urine pH Urine WBC (Auto) Urine Creatinine 47.4 H Urine Total Protein 16 H Fluid Total Protein Vancomycin Trough Rheumatoid Factor Complement C4 Miscellaneous Test Crossmatch 09/17/16 09/17/16 09/17/16 03:45 03:45 04:55 WBC 19.6 H RBC 3.41 L Hgb 8.5 L Hct 26.7 L MCV 78 L MCH 25 L MCHC RDW 19.9 H Plt Count Lymph % (Auto) 9.3 L Brown % (Auto) Lymph # Brown # 1.2 H Baso # Seg Neutrophils % 83.9 H Seg Neuts % (Manual) Lymphocytes % (Manual) Monocytes % (Manual) Eosinophils % (Manual) Basophils % (Manual) Nucleated RBC % Seg Neutrophils # 16.4 H Seg Neutrophils # Man Lymphocytes # (Manual) Monocytes # (Manual) Eosinophils # (Manual) Basophils # (Manual) PT INR Fibrinogen dRVVT Confirm Interp Factor V Activity POC ABG pH POC ABG pCO2 POC ABG pO2 ABG pO2 ABG HCO3 ABG Base Excess ABG Hemoglobin Oxyhemoglobin Sodium 146 H Potassium 5.1 H Chloride 110.9 H Carbon Dioxide 16 L BUN 146 H Creatinine 4.0 H Glucose 108 H POC Glucose 133 H Lactic Acid Calcium Phosphorus Magnesium 3.00 H Direct Bilirubin AST ALT Alkaline Phosphatase Lactate Dehydrogenase Troponin T C-Reactive Protein Total Protein Albumin Prealbumin Triglycerides Cholesterol LDL Cholesterol Direct HDL Cholesterol PTH Intact Urine pH Urine WBC (Auto) Urine Creatinine Urine Total Protein Fluid Total Protein Vancomycin Trough Rheumatoid Factor Complement C4 Miscellaneous Test Crossmatch 09/17/16 09/17/16 09/17/16 11:15 17:33 23:47 WBC RBC Hgb Hct MCV MCH MCHC RDW Plt Count Lymph % (Auto) Brown % (Auto) Lymph # Brown # Baso # Seg Neutrophils % Seg Neuts % (Manual) Lymphocytes % (Manual) Monocytes % (Manual) Eosinophils % (Manual) Basophils % (Manual) Nucleated RBC % Seg Neutrophils # Seg Neutrophils # Man Lymphocytes # (Manual) Monocytes # (Manual) Eosinophils # (Manual) Basophils # (Manual) PT INR Fibrinogen dRVVT Confirm Interp Factor V Activity POC ABG pH POC ABG pCO2 POC ABG pO2 ABG pO2 ABG HCO3 ABG Base Excess ABG Hemoglobin Oxyhemoglobin Sodium Potassium Chloride Carbon Dioxide BUN Creatinine Glucose POC Glucose 176 H 246 H 148 H Lactic Acid Calcium Phosphorus Magnesium Direct Bilirubin AST ALT Alkaline Phosphatase Lactate Dehydrogenase Troponin T C-Reactive Protein Total Protein Albumin Prealbumin Triglycerides Cholesterol LDL Cholesterol Direct HDL Cholesterol PTH Intact Urine pH Urine WBC (Auto) Urine Creatinine Urine Total Protein Fluid Total Protein Vancomycin Trough Rheumatoid Factor Complement C4 Miscellaneous Test Crossmatch 09/18/16 09/18/16 09/18/16 05:33 08:31 08:31 WBC 18.0 H RBC 3.17 L Hgb 9.0 L Hct 25.7 L MCV MCH MCHC 35 H RDW 20.4 H Plt Count Lymph % (Auto) Brown % (Auto) Lymph # Brown # Baso # Seg Neutrophils % Seg Neuts % (Manual) Lymphocytes % (Manual) Monocytes % (Manual) Eosinophils % (Manual) Basophils % (Manual) Nucleated RBC % Seg Neutrophils # Seg Neutrophils # Man Lymphocytes # (Manual) Monocytes # (Manual) Eosinophils # (Manual) Basophils # (Manual) PT INR Fibrinogen dRVVT Confirm Interp Factor V Activity POC ABG pH POC ABG pCO2 POC ABG pO2 ABG pO2 ABG HCO3 ABG Base Excess ABG Hemoglobin Oxyhemoglobin Sodium Potassium Chloride Carbon Dioxide 15 L BUN 124 H Creatinine 3.8 H Glucose POC Glucose 120 H Lactic Acid Calcium 8.1 L Phosphorus Magnesium Direct Bilirubin AST ALT Alkaline Phosphatase Lactate Dehydrogenase Troponin T C-Reactive Protein Total Protein Albumin Prealbumin Triglycerides Cholesterol LDL Cholesterol Direct HDL Cholesterol PTH Intact Urine pH Urine WBC (Auto) Urine Creatinine Urine Total Protein Fluid Total Protein Vancomycin Trough Rheumatoid Factor Complement C4 Miscellaneous Test Crossmatch 09/18/16 09/18/16 09/18/16 12:03 15:34 17:50 WBC RBC Hgb Hct MCV MCH MCHC RDW Plt Count Lymph % (Auto) Brown % (Auto) Lymph # Brown # Baso # Seg Neutrophils % Seg Neuts % (Manual) Lymphocytes % (Manual) Monocytes % (Manual) Eosinophils % (Manual) Basophils % (Manual) Nucleated RBC % Seg Neutrophils # Seg Neutrophils # Man Lymphocytes # (Manual) Monocytes # (Manual) Eosinophils # (Manual) Basophils # (Manual) PT INR Fibrinogen dRVVT Confirm Interp Factor V Activity POC ABG pH POC ABG pCO2 25.7 L POC ABG pO2 66 L ABG pO2 ABG HCO3 ABG Base Excess ABG Hemoglobin Oxyhemoglobin Sodium Potassium Chloride Carbon Dioxide BUN Creatinine Glucose POC Glucose 156 H 220 H Lactic Acid Calcium Phosphorus Magnesium Direct Bilirubin AST ALT Alkaline Phosphatase Lactate Dehydrogenase Troponin T C-Reactive Protein Total Protein Albumin Prealbumin Triglycerides Cholesterol LDL Cholesterol Direct HDL Cholesterol PTH Intact Urine pH Urine WBC (Auto) Urine Creatinine Urine Total Protein Fluid Total Protein Vancomycin Trough Rheumatoid Factor Complement C4 Miscellaneous Test Crossmatch 09/19/16 09/19/16 09/19/16 06:21 09:50 09:50 WBC 17.1 H RBC 3.49 L Hgb 9.0 L Hct 28.1 L MCV MCH 26 L MCHC RDW 20.8 H Plt Count Lymph % (Auto) 11.5 L Brown % (Auto) 7.5 H Lymph # Brown # 1.3 H Baso # Seg Neutrophils % 79.8 H Seg Neuts % (Manual) Lymphocytes % (Manual) Monocytes % (Manual) Eosinophils % (Manual) Basophils % (Manual) Nucleated RBC % Seg Neutrophils # 13.7 H Seg Neutrophils # Man Lymphocytes # (Manual) Monocytes # (Manual) Eosinophils # (Manual) Basophils # (Manual) PT INR Fibrinogen dRVVT Confirm Interp Factor V Activity POC ABG pH POC ABG pCO2 POC ABG pO2 ABG pO2 ABG HCO3 ABG Base Excess ABG Hemoglobin Oxyhemoglobin Sodium Potassium Chloride 108.6 H Carbon Dioxide 15 L BUN 125 H Creatinine 4.1 H Glucose 124 H POC Glucose 119 H Lactic Acid Calcium Phosphorus Magnesium Direct Bilirubin AST ALT Alkaline Phosphatase Lactate Dehydrogenase Troponin T C-Reactive Protein Total Protein Albumin Prealbumin Triglycerides Cholesterol LDL Cholesterol Direct HDL Cholesterol PTH Intact Urine pH Urine WBC (Auto) Urine Creatinine Urine Total Protein Fluid Total Protein Vancomycin Trough Rheumatoid Factor Complement C4 Miscellaneous Test Crossmatch 09/19/16 09/19/16 09/19/16 11:25 17:53 23:36 WBC RBC Hgb Hct MCV MCH MCHC RDW Plt Count Lymph % (Auto) Brown % (Auto) Lymph # Brown # Baso # Seg Neutrophils % Seg Neuts % (Manual) Lymphocytes % (Manual) Monocytes % (Manual) Eosinophils % (Manual) Basophils % (Manual) Nucleated RBC % Seg Neutrophils # Seg Neutrophils # Man Lymphocytes # (Manual) Monocytes # (Manual) Eosinophils # (Manual) Basophils # (Manual) PT INR Fibrinogen dRVVT Confirm Interp Factor V Activity POC ABG pH POC ABG pCO2 POC ABG pO2 ABG pO2 ABG HCO3 ABG Base Excess ABG Hemoglobin Oxyhemoglobin Sodium Potassium Chloride Carbon Dioxide BUN Creatinine Glucose POC Glucose 160 H 245 H 121 H Lactic Acid Calcium Phosphorus Magnesium Direct Bilirubin AST ALT Alkaline Phosphatase Lactate Dehydrogenase Troponin T C-Reactive Protein Total Protein Albumin Prealbumin Triglycerides Cholesterol LDL Cholesterol Direct HDL Cholesterol PTH Intact Urine pH Urine WBC (Auto) Urine Creatinine Urine Total Protein Fluid Total Protein Vancomycin Trough Rheumatoid Factor Complement C4 Miscellaneous Test Crossmatch 09/20/16 09/20/16 09/20/16 04:10 04:10 04:10 WBC 17.0 H RBC 3.21 L Hgb 8.2 L Hct 25.5 L MCV MCH 26 L MCHC RDW 20.9 H Plt Count Lymph % (Auto) Brown % (Auto) Lymph # Brown # Baso # Seg Neutrophils % Seg Neuts % (Manual) Lymphocytes % (Manual) Monocytes % (Manual) Eosinophils % (Manual) Basophils % (Manual) Nucleated RBC % Seg Neutrophils # Seg Neutrophils # Man Lymphocytes # (Manual) Monocytes # (Manual) Eosinophils # (Manual) Basophils # (Manual) PT INR Fibrinogen dRVVT Confirm Interp Factor V Activity POC ABG pH POC ABG pCO2 POC ABG pO2 ABG pO2 ABG HCO3 ABG Base Excess ABG Hemoglobin Oxyhemoglobin Sodium Potassium Chloride 111.0 H Carbon Dioxide 16 L BUN 129 H Creatinine 3.7 H Glucose 115 H POC Glucose Lactic Acid Calcium 8.2 L Phosphorus Magnesium Direct Bilirubin AST ALT Alkaline Phosphatase Lactate Dehydrogenase Troponin T C-Reactive Protein Total Protein Albumin Prealbumin Triglycerides 243 H Cholesterol LDL Cholesterol Direct HDL Cholesterol PTH Intact Urine pH Urine WBC (Auto) Urine Creatinine Urine Total Protein Fluid Total Protein Vancomycin Trough Rheumatoid Factor Complement C4 Miscellaneous Test Crossmatch 09/20/16 09/20/16 09/20/16 05:40 11:52 16:50 WBC RBC Hgb Hct MCV MCH MCHC RDW Plt Count Lymph % (Auto) Brown % (Auto) Lymph # Brown # Baso # Seg Neutrophils % Seg Neuts % (Manual) Lymphocytes % (Manual) Monocytes % (Manual) Eosinophils % (Manual) Basophils % (Manual) Nucleated RBC % Seg Neutrophils # Seg Neutrophils # Man Lymphocytes # (Manual) Monocytes # (Manual) Eosinophils # (Manual) Basophils # (Manual) PT INR Fibrinogen dRVVT Confirm Interp Factor V Activity POC ABG pH POC ABG pCO2 POC ABG pO2 ABG pO2 ABG HCO3 ABG Base Excess ABG Hemoglobin Oxyhemoglobin Sodium Potassium Chloride Carbon Dioxide BUN Creatinine Glucose POC Glucose 131 H 183 H 236 H Lactic Acid Calcium Phosphorus Magnesium Direct Bilirubin AST ALT Alkaline Phosphatase Lactate Dehydrogenase Troponin T C-Reactive Protein Total Protein Albumin Prealbumin Triglycerides Cholesterol LDL Cholesterol Direct HDL Cholesterol PTH Intact Urine pH Urine WBC (Auto) Urine Creatinine Urine Total Protein Fluid Total Protein Vancomycin Trough Rheumatoid Factor Complement C4 Miscellaneous Test Crossmatch 09/20/16 09/21/16 09/21/16 23:51 03:30 04:44 WBC RBC Hgb Hct MCV MCH MCHC RDW Plt Count Lymph % (Auto) Brown % (Auto) Lymph # Brown # Baso # Seg Neutrophils % Seg Neuts % (Manual) Lymphocytes % (Manual) Monocytes % (Manual) Eosinophils % (Manual) Basophils % (Manual) Nucleated RBC % Seg Neutrophils # Seg Neutrophils # Man Lymphocytes # (Manual) Monocytes # (Manual) Eosinophils # (Manual) Basophils # (Manual) PT INR Fibrinogen dRVVT Confirm Interp Factor V Activity POC ABG pH POC ABG pCO2 POC ABG pO2 ABG pO2 ABG HCO3 ABG Base Excess ABG Hemoglobin Oxyhemoglobin Sodium Potassium Chloride Carbon Dioxide BUN Creatinine Glucose POC Glucose 114 H 141 H Lactic Acid Calcium Phosphorus Magnesium 2.70 H Direct Bilirubin AST ALT Alkaline Phosphatase Lactate Dehydrogenase Troponin T C-Reactive Protein Total Protein Albumin Prealbumin Triglycerides Cholesterol LDL Cholesterol Direct HDL Cholesterol PTH Intact Urine pH Urine WBC (Auto) Urine Creatinine Urine Total Protein Fluid Total Protein Vancomycin Trough Rheumatoid Factor Complement C4 Miscellaneous Test Crossmatch 09/21/16 09/21/16 09/21/16 07:45 07:45 10:01 WBC 13.8 H RBC 2.94 L Hgb 7.5 L Hct 23.5 L MCV MCH 26 L MCHC RDW 21.2 H Plt Count Lymph % (Auto) 6.9 L Brown % (Auto) 9.4 H Lymph # 0.9 L Brown # 1.3 H Baso # Seg Neutrophils % 83.2 H Seg Neuts % (Manual) Lymphocytes % (Manual) Monocytes % (Manual) Eosinophils % (Manual) Basophils % (Manual) Nucleated RBC % Seg Neutrophils # 11.5 H Seg Neutrophils # Man Lymphocytes # (Manual) Monocytes # (Manual) Eosinophils # (Manual) Basophils # (Manual) PT INR Fibrinogen dRVVT Confirm Interp Factor V Activity POC ABG pH 7.308 L POC ABG pCO2 31.9 L POC ABG pO2 148 H ABG pO2 ABG HCO3 ABG Base Excess ABG Hemoglobin Oxyhemoglobin Sodium 147 H Potassium Chloride 114.2 H Carbon Dioxide 15 L BUN 120 H Creatinine 3.9 H Glucose 156 H POC Glucose Lactic Acid Calcium 8.2 L Phosphorus Magnesium Direct Bilirubin AST ALT Alkaline Phosphatase Lactate Dehydrogenase Troponin T C-Reactive Protein Total Protein Albumin Prealbumin Triglycerides Cholesterol LDL Cholesterol Direct HDL Cholesterol PTH Intact Urine pH Urine WBC (Auto) Urine Creatinine Urine Total Protein Fluid Total Protein Vancomycin Trough Rheumatoid Factor Complement C4 Miscellaneous Test Crossmatch 09/21/16 09/21/16 09/21/16 12:00 12:03 13:00 WBC RBC Hgb Hct MCV MCH MCHC RDW Plt Count Lymph % (Auto) Brown % (Auto) Lymph # Brown # Baso # Seg Neutrophils % Seg Neuts % (Manual) Lymphocytes % (Manual) Monocytes % (Manual) Eosinophils % (Manual) Basophils % (Manual) Nucleated RBC % Seg Neutrophils # Seg Neutrophils # Man Lymphocytes # (Manual) Monocytes # (Manual) Eosinophils # (Manual) Basophils # (Manual) PT INR Fibrinogen dRVVT Confirm Interp Factor V Activity POC ABG pH POC ABG pCO2 POC ABG pO2 ABG pO2 ABG HCO3 ABG Base Excess ABG Hemoglobin Oxyhemoglobin Sodium Potassium Chloride Carbon Dioxide BUN Creatinine Glucose POC Glucose 163 H Lactic Acid Calcium Phosphorus Magnesium Direct Bilirubin AST ALT Alkaline Phosphatase Lactate Dehydrogenase Troponin T C-Reactive Protein Total Protein Albumin Prealbumin Triglycerides Cholesterol LDL Cholesterol Direct HDL Cholesterol PTH Intact Urine pH Urine WBC (Auto) Urine Creatinine 54.8 H Urine Total Protein Fluid Total Protein Vancomycin Trough 2.3 L Rheumatoid Factor Complement C4 Miscellaneous Test Crossmatch 09/21/16 09/21/16 09/22/16 16:51 23:17 06:27 WBC RBC Hgb Hct MCV MCH MCHC RDW Plt Count Lymph % (Auto) Brown % (Auto) Lymph # Brown # Baso # Seg Neutrophils % Seg Neuts % (Manual) Lymphocytes % (Manual) Monocytes % (Manual) Eosinophils % (Manual) Basophils % (Manual) Nucleated RBC % Seg Neutrophils # Seg Neutrophils # Man Lymphocytes # (Manual) Monocytes # (Manual) Eosinophils # (Manual) Basophils # (Manual) PT INR Fibrinogen dRVVT Confirm Interp Factor V Activity POC ABG pH POC ABG pCO2 POC ABG pO2 ABG pO2 ABG HCO3 ABG Base Excess ABG Hemoglobin Oxyhemoglobin Sodium Potassium Chloride Carbon Dioxide BUN Creatinine Glucose POC Glucose 206 H 114 H 115 H Lactic Acid Calcium Phosphorus Magnesium Direct Bilirubin AST ALT Alkaline Phosphatase Lactate Dehydrogenase Troponin T C-Reactive Protein Total Protein Albumin Prealbumin Triglycerides Cholesterol LDL Cholesterol Direct HDL Cholesterol PTH Intact Urine pH Urine WBC (Auto) Urine Creatinine Urine Total Protein Fluid Total Protein Vancomycin Trough Rheumatoid Factor Complement C4 Miscellaneous Test Crossmatch 09/22/16 09/22/16 09/22/16 07:50 07:50 12:00 WBC 17.8 H RBC 3.04 L Hgb 8.0 L Hct 24.7 L MCV MCH 26 L MCHC RDW 21.6 H Plt Count Lymph % (Auto) Brown % (Auto) Lymph # Brown # Baso # Seg Neutrophils % Seg Neuts % (Manual) Lymphocytes % (Manual) Monocytes % (Manual) Eosinophils % (Manual) Basophils % (Manual) Nucleated RBC % Seg Neutrophils # Seg Neutrophils # Man Lymphocytes # (Manual) Monocytes # (Manual) Eosinophils # (Manual) Basophils # (Manual) PT INR Fibrinogen dRVVT Confirm Interp Factor V Activity POC ABG pH POC ABG pCO2 POC ABG pO2 ABG pO2 ABG HCO3 ABG Base Excess ABG Hemoglobin Oxyhemoglobin Sodium 150 H Potassium Chloride 118.2 H Carbon Dioxide 14 L BUN 111 H Creatinine 3.7 H Glucose 157 H POC Glucose 183 H Lactic Acid Calcium Phosphorus Magnesium Direct Bilirubin AST ALT Alkaline Phosphatase Lactate Dehydrogenase Troponin T C-Reactive Protein Total Protein Albumin Prealbumin Triglycerides Cholesterol LDL Cholesterol Direct HDL Cholesterol PTH Intact Urine pH Urine WBC (Auto) Urine Creatinine Urine Total Protein Fluid Total Protein Vancomycin Trough Rheumatoid Factor Complement C4 Miscellaneous Test Crossmatch 09/22/16 09/22/16 09/23/16 17:29 23:10 05:00 WBC 19.2 H RBC 3.13 L Hgb 8.0 L Hct 25.2 L MCV MCH 26 L MCHC RDW 22.1 H Plt Count Lymph % (Auto) Brown % (Auto) Lymph # Brown # Baso # Seg Neutrophils % Seg Neuts % (Manual) 92.0 H Lymphocytes % (Manual) 3.0 L Monocytes % (Manual) Eosinophils % (Manual) Basophils % (Manual) Nucleated RBC % Seg Neutrophils # Seg Neutrophils # Man 17.7 H Lymphocytes # (Manual) 0.6 L Monocytes # (Manual) Eosinophils # (Manual) Basophils # (Manual) PT INR Fibrinogen dRVVT Confirm Interp Factor V Activity POC ABG pH POC ABG pCO2 POC ABG pO2 ABG pO2 ABG HCO3 ABG Base Excess ABG Hemoglobin Oxyhemoglobin Sodium Potassium Chloride Carbon Dioxide BUN Creatinine Glucose POC Glucose 197 H 169 H Lactic Acid Calcium Phosphorus Magnesium Direct Bilirubin AST ALT Alkaline Phosphatase Lactate Dehydrogenase Troponin T C-Reactive Protein Total Protein Albumin Prealbumin Triglycerides Cholesterol LDL Cholesterol Direct HDL Cholesterol PTH Intact Urine pH Urine WBC (Auto) Urine Creatinine Urine Total Protein Fluid Total Protein Vancomycin Trough Rheumatoid Factor Complement C4 Miscellaneous Test Crossmatch 09/23/16 09/23/16 09/23/16 05:00 05:00 05:10 WBC RBC Hgb Hct MCV MCH MCHC RDW Plt Count Lymph % (Auto) Brown % (Auto) Lymph # Brown # Baso # Seg Neutrophils % Seg Neuts % (Manual) Lymphocytes % (Manual) Monocytes % (Manual) Eosinophils % (Manual) Basophils % (Manual) Nucleated RBC % Seg Neutrophils # Seg Neutrophils # Man Lymphocytes # (Manual) Monocytes # (Manual) Eosinophils # (Manual) Basophils # (Manual) PT INR Fibrinogen dRVVT Confirm Interp Factor V Activity POC ABG pH POC ABG pCO2 POC ABG pO2 ABG pO2 ABG HCO3 ABG Base Excess ABG Hemoglobin Oxyhemoglobin Sodium 147 H Potassium 3.2 L Chloride 115.7 H Carbon Dioxide 13 L BUN 111 H Creatinine 3.8 H Glucose 194 H POC Glucose 188 H Lactic Acid Calcium 7.3 L D Phosphorus Magnesium Direct Bilirubin AST ALT Alkaline Phosphatase Lactate Dehydrogenase Troponin T C-Reactive Protein 3.20 H Total Protein Albumin Prealbumin Triglycerides Cholesterol LDL Cholesterol Direct HDL Cholesterol PTH Intact Urine pH Urine WBC (Auto) Urine Creatinine Urine Total Protein Fluid Total Protein Vancomycin Trough Rheumatoid Factor Complement C4 Miscellaneous Test Crossmatch 09/23/16 09/23/16 09/23/16 11:37 12:29 18:01 WBC RBC Hgb Hct MCV MCH MCHC RDW Plt Count Lymph % (Auto) Brown % (Auto) Lymph # Brown # Baso # Seg Neutrophils % Seg Neuts % (Manual) Lymphocytes % (Manual) Monocytes % (Manual) Eosinophils % (Manual) Basophils % (Manual) Nucleated RBC % Seg Neutrophils # Seg Neutrophils # Man Lymphocytes # (Manual) Monocytes # (Manual) Eosinophils # (Manual) Basophils # (Manual) PT INR Fibrinogen dRVVT Confirm Interp Factor V Activity POC ABG pH POC ABG pCO2 18.9 L POC ABG pO2 143 H ABG pO2 ABG HCO3 ABG Base Excess ABG Hemoglobin Oxyhemoglobin Sodium Potassium Chloride Carbon Dioxide BUN Creatinine Glucose POC Glucose 153 H 108 H Lactic Acid Calcium Phosphorus Magnesium Direct Bilirubin AST ALT Alkaline Phosphatase Lactate Dehydrogenase Troponin T C-Reactive Protein Total Protein Albumin Prealbumin Triglycerides Cholesterol LDL Cholesterol Direct HDL Cholesterol PTH Intact Urine pH Urine WBC (Auto) Urine Creatinine Urine Total Protein Fluid Total Protein Vancomycin Trough Rheumatoid Factor Complement C4 Miscellaneous Test Crossmatch 09/23/16 09/23/16 09/24/16 21:19 23:43 05:16 WBC RBC Hgb Hct MCV MCH MCHC RDW Plt Count Lymph % (Auto) Brown % (Auto) Lymph # Brown # Baso # Seg Neutrophils % Seg Neuts % (Manual) Lymphocytes % (Manual) Monocytes % (Manual) Eosinophils % (Manual) Basophils % (Manual) Nucleated RBC % Seg Neutrophils # Seg Neutrophils # Man Lymphocytes # (Manual) Monocytes # (Manual) Eosinophils # (Manual) Basophils # (Manual) PT INR Fibrinogen dRVVT Confirm Interp Factor V Activity POC ABG pH POC ABG pCO2 17.3 L POC ABG pO2 112 H ABG pO2 ABG HCO3 ABG Base Excess ABG Hemoglobin Oxyhemoglobin Sodium Potassium Chloride Carbon Dioxide BUN Creatinine Glucose POC Glucose 143 H 164 H Lactic Acid Calcium Phosphorus Magnesium Direct Bilirubin AST ALT Alkaline Phosphatase Lactate Dehydrogenase Troponin T C-Reactive Protein Total Protein Albumin Prealbumin Triglycerides Cholesterol LDL Cholesterol Direct HDL Cholesterol PTH Intact Urine pH Urine WBC (Auto) Urine Creatinine Urine Total Protein Fluid Total Protein Vancomycin Trough Rheumatoid Factor Complement C4 Miscellaneous Test Crossmatch 09/24/16 09/24/16 09/24/16 05:21 11:58 17:06 WBC RBC Hgb Hct MCV MCH MCHC RDW Plt Count Lymph % (Auto) Brown % (Auto) Lymph # Brown # Baso # Seg Neutrophils % Seg Neuts % (Manual) Lymphocytes % (Manual) Monocytes % (Manual) Eosinophils % (Manual) Basophils % (Manual) Nucleated RBC % Seg Neutrophils # Seg Neutrophils # Man Lymphocytes # (Manual) Monocytes # (Manual) Eosinophils # (Manual) Basophils # (Manual) PT INR Fibrinogen dRVVT Confirm Interp Factor V Activity POC ABG pH POC ABG pCO2 POC ABG pO2 ABG pO2 ABG HCO3 ABG Base Excess ABG Hemoglobin Oxyhemoglobin Sodium Potassium Chloride Carbon Dioxide 10 L BUN 103 H Creatinine 4.3 H Glucose 163 H POC Glucose 173 H 167 H Lactic Acid Calcium 6.5 L Phosphorus Magnesium Direct Bilirubin AST ALT Alkaline Phosphatase Lactate Dehydrogenase Troponin T C-Reactive Protein Total Protein Albumin Prealbumin Triglycerides Cholesterol LDL Cholesterol Direct HDL Cholesterol PTH Intact Urine pH Urine WBC (Auto) Urine Creatinine Urine Total Protein Fluid Total Protein Vancomycin Trough Rheumatoid Factor Complement C4 Miscellaneous Test Crossmatch 09/24/16 09/24/16 09/24/16 20:15 21:02 23:48 WBC RBC Hgb Hct MCV MCH MCHC RDW Plt Count Lymph % (Auto) Brown % (Auto) Lymph # Brown # Baso # Seg Neutrophils % Seg Neuts % (Manual) Lymphocytes % (Manual) Monocytes % (Manual) Eosinophils % (Manual) Basophils % (Manual) Nucleated RBC % Seg Neutrophils # Seg Neutrophils # Man Lymphocytes # (Manual) Monocytes # (Manual) Eosinophils # (Manual) Basophils # (Manual) PT INR Fibrinogen dRVVT Confirm Interp Factor V Activity POC ABG pH 7.288 L POC ABG pCO2 30.2 L 21.5 L POC ABG pO2 32 L 39 L ABG pO2 ABG HCO3 ABG Base Excess ABG Hemoglobin Oxyhemoglobin Sodium Potassium Chloride Carbon Dioxide BUN Creatinine Glucose POC Glucose 109 H Lactic Acid Calcium Phosphorus Magnesium Direct Bilirubin AST ALT Alkaline Phosphatase Lactate Dehydrogenase Troponin T C-Reactive Protein Total Protein Albumin Prealbumin Triglycerides Cholesterol LDL Cholesterol Direct HDL Cholesterol PTH Intact Urine pH Urine WBC (Auto) Urine Creatinine Urine Total Protein Fluid Total Protein Vancomycin Trough Rheumatoid Factor Complement C4 Miscellaneous Test Crossmatch 09/25/16 09/25/16 09/25/16 04:20 04:20 04:20 WBC RBC 2.58 L Hgb 7.0 L Hct 21.0 L MCV MCH 27 L MCHC RDW 23.8 H Plt Count Lymph % (Auto) Brown % (Auto) Lymph # Brown # Baso # Seg Neutrophils % Seg Neuts % (Manual) Lymphocytes % (Manual) 12.0 L Monocytes % (Manual) Eosinophils % (Manual) 7.0 H Basophils % (Manual) 2.0 H Nucleated RBC % Seg Neutrophils # Seg Neutrophils # Man Lymphocytes # (Manual) 0.9 L Monocytes # (Manual) Eosinophils # (Manual) 0.5 H Basophils # (Manual) PT INR Fibrinogen dRVVT Confirm Interp Factor V Activity POC ABG pH POC ABG pCO2 POC ABG pO2 ABG pO2 ABG HCO3 ABG Base Excess ABG Hemoglobin Oxyhemoglobin Sodium Potassium Chloride Carbon Dioxide 15 L BUN 72 H Creatinine 3.8 H Glucose POC Glucose Lactic Acid Calcium 6.0 L Phosphorus 4.60 H Magnesium 1.60 L Direct Bilirubin AST ALT Alkaline Phosphatase Lactate Dehydrogenase Troponin T C-Reactive Protein Total Protein Albumin Prealbumin Triglycerides Cholesterol LDL Cholesterol Direct HDL Cholesterol PTH Intact Urine pH Urine WBC (Auto) Urine Creatinine Urine Total Protein Fluid Total Protein Vancomycin Trough Rheumatoid Factor Complement C4 Miscellaneous Test Crossmatch 09/25/16 09/25/16 09/25/16 04:57 08:02 10:30 WBC RBC Hgb Hct MCV MCH MCHC RDW Plt Count Lymph % (Auto) Brown % (Auto) Lymph # Brown # Baso # Seg Neutrophils % Seg Neuts % (Manual) Lymphocytes % (Manual) Monocytes % (Manual) Eosinophils % (Manual) Basophils % (Manual) Nucleated RBC % Seg Neutrophils # Seg Neutrophils # Man Lymphocytes # (Manual) Monocytes # (Manual) Eosinophils # (Manual) Basophils # (Manual) PT INR Fibrinogen dRVVT Confirm Interp Factor V Activity POC ABG pH POC ABG pCO2 24.7 L POC ABG pO2 152 H ABG pO2 ABG HCO3 ABG Base Excess ABG Hemoglobin Oxyhemoglobin Sodium Potassium Chloride Carbon Dioxide BUN Creatinine Glucose POC Glucose 113 H Lactic Acid Calcium Phosphorus Magnesium Direct Bilirubin AST ALT Alkaline Phosphatase Lactate Dehydrogenase Troponin T C-Reactive Protein Total Protein Albumin Prealbumin Triglycerides Cholesterol LDL Cholesterol Direct HDL Cholesterol PTH Intact Urine pH Urine WBC (Auto) Urine Creatinine Urine Total Protein Fluid Total Protein Vancomycin Trough Rheumatoid Factor Complement C4 Miscellaneous Test Crossmatch See Detail 09/25/16 09/25/16 09/25/16 12:05 17:44 23:47 WBC RBC Hgb Hct MCV MCH MCHC RDW Plt Count Lymph % (Auto) Brown % (Auto) Lymph # Brown # Baso # Seg Neutrophils % Seg Neuts % (Manual) Lymphocytes % (Manual) Monocytes % (Manual) Eosinophils % (Manual) Basophils % (Manual) Nucleated RBC % Seg Neutrophils # Seg Neutrophils # Man Lymphocytes # (Manual) Monocytes # (Manual) Eosinophils # (Manual) Basophils # (Manual) PT INR Fibrinogen dRVVT Confirm Interp Factor V Activity POC ABG pH POC ABG pCO2 POC ABG pO2 ABG pO2 ABG HCO3 ABG Base Excess ABG Hemoglobin Oxyhemoglobin Sodium Potassium Chloride Carbon Dioxide BUN Creatinine Glucose POC Glucose 117 H 119 H 150 H Lactic Acid Calcium Phosphorus Magnesium Direct Bilirubin AST ALT Alkaline Phosphatase Lactate Dehydrogenase Troponin T C-Reactive Protein Total Protein Albumin Prealbumin Triglycerides Cholesterol LDL Cholesterol Direct HDL Cholesterol PTH Intact Urine pH Urine WBC (Auto) Urine Creatinine Urine Total Protein Fluid Total Protein Vancomycin Trough Rheumatoid Factor Complement C4 Miscellaneous Test Crossmatch 09/26/16 09/26/16 09/26/16 04:25 04:25 04:25 WBC RBC 2.65 L Hgb 7.4 L Hct 21.6 L MCV MCH MCHC RDW 22.5 H Plt Count Lymph % (Auto) Brown % (Auto) Lymph # Brown # Baso # Seg Neutrophils % Seg Neuts % (Manual) Lymphocytes % (Manual) 6.0 L Monocytes % (Manual) Eosinophils % (Manual) 11.0 H Basophils % (Manual) Nucleated RBC % Seg Neutrophils # Seg Neutrophils # Man Lymphocytes # (Manual) 0.4 L Monocytes # (Manual) Eosinophils # (Manual) 0.6 H Basophils # (Manual) PT INR Fibrinogen dRVVT Confirm Interp Factor V Activity POC ABG pH POC ABG pCO2 POC ABG pO2 ABG pO2 ABG HCO3 ABG Base Excess ABG Hemoglobin Oxyhemoglobin Sodium Potassium Chloride 97.0 L Carbon Dioxide 19 L BUN 43 H Creatinine 2.6 H Glucose 130 H POC Glucose Lactic Acid 4.40 H* Calcium 6.7 L Phosphorus Magnesium Direct Bilirubin AST ALT Alkaline Phosphatase Lactate Dehydrogenase Troponin T C-Reactive Protein Total Protein Albumin Prealbumin Triglycerides Cholesterol LDL Cholesterol Direct HDL Cholesterol PTH Intact Urine pH Urine WBC (Auto) Urine Creatinine Urine Total Protein Fluid Total Protein Vancomycin Trough Rheumatoid Factor Complement C4 Miscellaneous Test Crossmatch 09/26/16 09/26/16 09/26/16 05:20 11:44 12:12 WBC RBC Hgb Hct MCV MCH MCHC RDW Plt Count Lymph % (Auto) Brown % (Auto) Lymph # Brown # Baso # Seg Neutrophils % Seg Neuts % (Manual) Lymphocytes % (Manual) Monocytes % (Manual) Eosinophils % (Manual) Basophils % (Manual) Nucleated RBC % Seg Neutrophils # Seg Neutrophils # Man Lymphocytes # (Manual) Monocytes # (Manual) Eosinophils # (Manual) Basophils # (Manual) PT INR Fibrinogen dRVVT Confirm Interp Factor V Activity POC ABG pH POC ABG pCO2 27.0 L POC ABG pO2 69 L ABG pO2 ABG HCO3 ABG Base Excess ABG Hemoglobin Oxyhemoglobin Sodium Potassium Chloride Carbon Dioxide BUN Creatinine Glucose POC Glucose 121 H 128 H Lactic Acid Calcium Phosphorus Magnesium Direct Bilirubin AST ALT Alkaline Phosphatase Lactate Dehydrogenase Troponin T C-Reactive Protein Total Protein Albumin Prealbumin Triglycerides Cholesterol LDL Cholesterol Direct HDL Cholesterol PTH Intact Urine pH Urine WBC (Auto) Urine Creatinine Urine Total Protein Fluid Total Protein Vancomycin Trough Rheumatoid Factor Complement C4 Miscellaneous Test Crossmatch 09/26/16 09/26/16 09/27/16 18:31 23:40 08:20 WBC RBC Hgb Hct MCV MCH MCHC RDW Plt Count Lymph % (Auto) Brown % (Auto) Lymph # Brown # Baso # Seg Neutrophils % Seg Neuts % (Manual) Lymphocytes % (Manual) Monocytes % (Manual) Eosinophils % (Manual) Basophils % (Manual) Nucleated RBC % Seg Neutrophils # Seg Neutrophils # Man Lymphocytes # (Manual) Monocytes # (Manual) Eosinophils # (Manual) Basophils # (Manual) PT INR Fibrinogen dRVVT Confirm Interp Factor V Activity POC ABG pH POC ABG pCO2 POC ABG pO2 ABG pO2 ABG HCO3 ABG Base Excess ABG Hemoglobin Oxyhemoglobin Sodium Potassium Chloride Carbon Dioxide BUN Creatinine Glucose POC Glucose 120 H 133 H Lactic Acid 4.10 H* Calcium Phosphorus Magnesium Direct Bilirubin AST ALT Alkaline Phosphatase Lactate Dehydrogenase Troponin T C-Reactive Protein Total Protein Albumin Prealbumin Triglycerides Cholesterol LDL Cholesterol Direct HDL Cholesterol PTH Intact Urine pH Urine WBC (Auto) Urine Creatinine Urine Total Protein Fluid Total Protein Vancomycin Trough Rheumatoid Factor Complement C4 Miscellaneous Test Crossmatch 09/27/16 09/27/16 09/27/16 11:23 15:00 18:15 WBC RBC Hgb Hct MCV MCH MCHC RDW Plt Count Lymph % (Auto) Brown % (Auto) Lymph # Brown # Baso # Seg Neutrophils % Seg Neuts % (Manual) Lymphocytes % (Manual) Monocytes % (Manual) Eosinophils % (Manual) Basophils % (Manual) Nucleated RBC % Seg Neutrophils # Seg Neutrophils # Man Lymphocytes # (Manual) Monocytes # (Manual) Eosinophils # (Manual) Basophils # (Manual) PT INR Fibrinogen dRVVT Confirm Interp Factor V Activity POC ABG pH 7.459 H POC ABG pCO2 27.1 L POC ABG pO2 140 H ABG pO2 ABG HCO3 ABG Base Excess ABG Hemoglobin Oxyhemoglobin Sodium Potassium Chloride Carbon Dioxide BUN Creatinine Glucose POC Glucose 114 H 127 H Lactic Acid Calcium Phosphorus Magnesium Direct Bilirubin AST ALT Alkaline Phosphatase Lactate Dehydrogenase Troponin T C-Reactive Protein Total Protein Albumin Prealbumin Triglycerides Cholesterol LDL Cholesterol Direct HDL Cholesterol PTH Intact Urine pH Urine WBC (Auto) Urine Creatinine Urine Total Protein Fluid Total Protein Vancomycin Trough Rheumatoid Factor Complement C4 Miscellaneous Test Crossmatch 09/27/16 09/27/16 09/28/16 Unknown Unknown 03:45 WBC RBC 2.49 L Hgb 6.8 L Hct 20.7 L MCV MCH 27 L MCHC RDW 22.1 H Plt Count Lymph % (Auto) Brown % (Auto) Lymph # Brown # Baso # Seg Neutrophils % Seg Neuts % (Manual) 32.0 L Lymphocytes % (Manual) 12.0 L Monocytes % (Manual) 11.0 H Eosinophils % (Manual) 10.0 H Basophils % (Manual) Nucleated RBC % Seg Neutrophils # Seg Neutrophils # Man Lymphocytes # (Manual) 1.0 L Monocytes # (Manual) 0.9 H Eosinophils # (Manual) 0.8 H Basophils # (Manual) PT INR Fibrinogen dRVVT Confirm Interp Factor V Activity POC ABG pH POC ABG pCO2 POC ABG pO2 ABG pO2 ABG HCO3 ABG Base Excess ABG Hemoglobin Oxyhemoglobin Sodium 135 L 135 L Potassium 3.5 L Chloride 93.6 L 94.4 L Carbon Dioxide 17 L 21 L BUN 45 H 28 H Creatinine 3.3 H 2.5 H Glucose 106 H POC Glucose Lactic Acid Calcium 7.3 L 7.1 L Phosphorus Magnesium Direct Bilirubin AST ALT Alkaline Phosphatase Lactate Dehydrogenase Troponin T C-Reactive Protein Total Protein Albumin Prealbumin Triglycerides Cholesterol LDL Cholesterol Direct HDL Cholesterol PTH Intact Urine pH Urine WBC (Auto) Urine Creatinine Urine Total Protein Fluid Total Protein Vancomycin Trough Rheumatoid Factor Complement C4 Miscellaneous Test Crossmatch 09/28/16 09/28/16 09/28/16 03:45 07:25 11:58 WBC 13.3 H RBC 3.01 L Hgb 8.4 L Hct 25.0 L MCV MCH MCHC RDW 20.5 H Plt Count 128 L Lymph % (Auto) Brown % (Auto) Lymph # Brown # Baso # Seg Neutrophils % Seg Neuts % (Manual) Lymphocytes % (Manual) 7.0 L Monocytes % (Manual) Eosinophils % (Manual) 6.0 H Basophils % (Manual) Nucleated RBC % Seg Neutrophils # Seg Neutrophils # Man Lymphocytes # (Manual) 0.9 L Monocytes # (Manual) Eosinophils # (Manual) 0.8 H Basophils # (Manual) PT INR Fibrinogen dRVVT Confirm Interp Factor V Activity POC ABG pH POC ABG pCO2 POC ABG pO2 ABG pO2 ABG HCO3 ABG Base Excess ABG Hemoglobin Oxyhemoglobin Sodium Potassium Chloride Carbon Dioxide BUN Creatinine Glucose POC Glucose 121 H Lactic Acid 4.50 H* Calcium Phosphorus Magnesium Direct Bilirubin AST ALT Alkaline Phosphatase Lactate Dehydrogenase Troponin T C-Reactive Protein Total Protein Albumin Prealbumin Triglycerides Cholesterol LDL Cholesterol Direct HDL Cholesterol PTH Intact Urine pH Urine WBC (Auto) Urine Creatinine Urine Total Protein Fluid Total Protein Vancomycin Trough Rheumatoid Factor Complement C4 Miscellaneous Test Crossmatch 09/29/16 09/29/1617 06:45 06:45 06:45 WBC 14.9 H RBC 2.74 L Hgb 7.6 L Hct 23.2 L MCV MCH MCHC RDW 20.5 H Plt Count 81 L Lymph % (Auto) Brown % (Auto) Lymph # Brown # Baso # Seg Neutrophils % Seg Neuts % (Manual) 81.0 H Lymphocytes % (Manual) 4.0 L Monocytes % (Manual) Eosinophils % (Manual) Basophils % (Manual) Nucleated RBC % Seg Neutrophils # Seg Neutrophils # Man 12.1 H Lymphocytes # (Manual) 0.6 L Monocytes # (Manual) Eosinophils # (Manual) Basophils # (Manual) PT INR Fibrinogen dRVVT Confirm Interp Factor V Activity POC ABG pH POC ABG pCO2 POC ABG pO2 ABG pO2 ABG HCO3 ABG Base Excess ABG Hemoglobin Oxyhemoglobin Sodium 133 L Potassium 3.4 L Chloride 92.5 L Carbon Dioxide 21 L BUN 33 H Creatinine 3.0 H Glucose POC Glucose Lactic Acid Calcium 6.6 L Phosphorus Magnesium 1.40 L Direct Bilirubin 0.9 H AST ALT Alkaline Phosphatase Lactate Dehydrogenase Troponin T C-Reactive Protein Total Protein 4.3 L Albumin 1.3 L Prealbumin Triglycerides Cholesterol LDL Cholesterol Direct HDL Cholesterol PTH Intact Urine pH Urine WBC (Auto) Urine Creatinine Urine Total Protein Fluid Total Protein Vancomycin Trough Rheumatoid Factor Complement C4 Miscellaneous Test Crossmatch 09/29/16 09/29/16 09/30/16 17:52 20:12 00:07 WBC RBC Hgb Hct MCV MCH MCHC RDW Plt Count Lymph % (Auto) Brown % (Auto) Lymph # Brown # Baso # Seg Neutrophils % Seg Neuts % (Manual) Lymphocytes % (Manual) Monocytes % (Manual) Eosinophils % (Manual) Basophils % (Manual) Nucleated RBC % Seg Neutrophils # Seg Neutrophils # Man Lymphocytes # (Manual) Monocytes # (Manual) Eosinophils # (Manual) Basophils # (Manual) PT INR Fibrinogen dRVVT Confirm Interp Factor V Activity POC ABG pH POC ABG pCO2 POC ABG pO2 ABG pO2 ABG HCO3 ABG Base Excess ABG Hemoglobin Oxyhemoglobin Sodium Potassium Chloride Carbon Dioxide BUN Creatinine Glucose POC Glucose 50 L 51 L Lactic Acid Calcium Phosphorus Magnesium Direct Bilirubin AST ALT Alkaline Phosphatase Lactate Dehydrogenase Troponin T 0.204 H* C-Reactive Protein Total Protein Albumin Prealbumin Triglycerides Cholesterol 31 L LDL Cholesterol Direct 4 L HDL Cholesterol 3 L PTH Intact Urine pH Urine WBC (Auto) Urine Creatinine Urine Total Protein Fluid Total Protein Vancomycin Trough Rheumatoid Factor Complement C4 Miscellaneous Test Crossmatch 09/30/16 09/30/16 09/30/16 01:30 05:15 06:10 WBC RBC Hgb Hct MCV MCH MCHC RDW Plt Count Lymph % (Auto) Brown % (Auto) Lymph # Brown # Baso # Seg Neutrophils % Seg Neuts % (Manual) Lymphocytes % (Manual) Monocytes % (Manual) Eosinophils % (Manual) Basophils % (Manual) Nucleated RBC % Seg Neutrophils # Seg Neutrophils # Man Lymphocytes # (Manual) Monocytes # (Manual) Eosinophils # (Manual) Basophils # (Manual) PT INR Fibrinogen dRVVT Confirm Interp Factor V Activity POC ABG pH POC ABG pCO2 POC ABG pO2 ABG pO2 ABG HCO3 ABG Base Excess ABG Hemoglobin Oxyhemoglobin Sodium 133 L Potassium 3.2 L Chloride 93.2 L Carbon Dioxide 19 L BUN 36 H Creatinine 3.2 H Glucose 104 H POC Glucose 167 H 146 H Lactic Acid Calcium 6.4 L Phosphorus Magnesium 1.60 L Direct Bilirubin AST ALT Alkaline Phosphatase Lactate Dehydrogenase Troponin T C-Reactive Protein Total Protein Albumin Prealbumin Triglycerides Cholesterol LDL Cholesterol Direct HDL Cholesterol PTH Intact Urine pH Urine WBC (Auto) Urine Creatinine Urine Total Protein Fluid Total Protein Vancomycin Trough Rheumatoid Factor Complement C4 Miscellaneous Test Crossmatch 09/30/16 09/30/16 09/30/16 11:26 13:39 18:38 WBC RBC Hgb Hct MCV MCH MCHC RDW Plt Count Lymph % (Auto) Brown % (Auto) Lymph # Brown # Baso # Seg Neutrophils % Seg Neuts % (Manual) Lymphocytes % (Manual) Monocytes % (Manual) Eosinophils % (Manual) Basophils % (Manual) Nucleated RBC % Seg Neutrophils # Seg Neutrophils # Man Lymphocytes # (Manual) Monocytes # (Manual) Eosinophils # (Manual) Basophils # (Manual) PT INR Fibrinogen dRVVT Confirm Interp Factor V Activity POC ABG pH 7.479 H POC ABG pCO2 29.8 L POC ABG pO2 117 H ABG pO2 ABG HCO3 ABG Base Excess ABG Hemoglobin Oxyhemoglobin Sodium Potassium Chloride Carbon Dioxide BUN Creatinine Glucose POC Glucose 140 H 122 H Lactic Acid Calcium Phosphorus Magnesium Direct Bilirubin AST ALT Alkaline Phosphatase Lactate Dehydrogenase Troponin T C-Reactive Protein Total Protein Albumin Prealbumin Triglycerides Cholesterol LDL Cholesterol Direct HDL Cholesterol PTH Intact Urine pH Urine WBC (Auto) Urine Creatinine Urine Total Protein Fluid Total Protein Vancomycin Trough Rheumatoid Factor Complement C4 Miscellaneous Test Crossmatch 10/01/16 10/01/16 10/01/16 06:00 06:00 12:37 WBC 12.6 H RBC 2.75 L Hgb 7.3 L Hct 23.3 L MCV MCH 27 L MCHC RDW 20.6 H Plt Count 72 L Lymph % (Auto) Brown % (Auto) Lymph # Brown # Baso # Seg Neutrophils % Seg Neuts % (Manual) 31.0 L Lymphocytes % (Manual) 8.0 L Monocytes % (Manual) Eosinophils % (Manual) Basophils % (Manual) Nucleated RBC % 3.0 H Seg Neutrophils # Seg Neutrophils # Man Lymphocytes # (Manual) 1.0 L Monocytes # (Manual) Eosinophils # (Manual) Basophils # (Manual) PT INR Fibrinogen dRVVT Confirm Interp Factor V Activity POC ABG pH POC ABG pCO2 POC ABG pO2 ABG pO2 ABG HCO3 ABG Base Excess ABG Hemoglobin Oxyhemoglobin Sodium 127 L Potassium Chloride 86.8 L Carbon Dioxide 20 L BUN 42 H Creatinine 3.5 H Glucose POC Glucose 65 L Lactic Acid Calcium 7.0 L Phosphorus Magnesium Direct Bilirubin AST ALT Alkaline Phosphatase Lactate Dehydrogenase Troponin T C-Reactive Protein Total Protein Albumin Prealbumin Triglycerides Cholesterol LDL Cholesterol Direct HDL Cholesterol PTH Intact Urine pH Urine WBC (Auto) Urine Creatinine Urine Total Protein Fluid Total Protein Vancomycin Trough Rheumatoid Factor Complement C4 Miscellaneous Test Crossmatch 10/01/16 10/01/16 10/02/16 17:39 23:32 00:59 WBC RBC Hgb Hct MCV MCH MCHC RDW Plt Count Lymph % (Auto) Brown % (Auto) Lymph # Brown # Baso # Seg Neutrophils % Seg Neuts % (Manual) Lymphocytes % (Manual) Monocytes % (Manual) Eosinophils % (Manual) Basophils % (Manual) Nucleated RBC % Seg Neutrophils # Seg Neutrophils # Man Lymphocytes # (Manual) Monocytes # (Manual) Eosinophils # (Manual) Basophils # (Manual) PT INR Fibrinogen dRVVT Confirm Interp Factor V Activity POC ABG pH POC ABG pCO2 POC ABG pO2 ABG pO2 ABG HCO3 ABG Base Excess ABG Hemoglobin Oxyhemoglobin Sodium Potassium Chloride Carbon Dioxide BUN Creatinine Glucose POC Glucose 107 H 52 L 145 H Lactic Acid Calcium Phosphorus Magnesium Direct Bilirubin AST ALT Alkaline Phosphatase Lactate Dehydrogenase Troponin T C-Reactive Protein Total Protein Albumin Prealbumin Triglycerides Cholesterol LDL Cholesterol Direct HDL Cholesterol PTH Intact Urine pH Urine WBC (Auto) Urine Creatinine Urine Total Protein Fluid Total Protein Vancomycin Trough Rheumatoid Factor Complement C4 Miscellaneous Test Crossmatch 10/02/16 10/02/16 10/02/16 10:30 10:50 10:50 WBC 14.7 H RBC 2.76 L Hgb 7.4 L Hct 23.6 L MCV MCH 27 L MCHC RDW 20.2 H Plt Count 79 L Lymph % (Auto) Brown % (Auto) Lymph # Brown # Baso # Seg Neutrophils % Seg Neuts % (Manual) 86.0 H Lymphocytes % (Manual) 6.0 L Monocytes % (Manual) Eosinophils % (Manual) Basophils % (Manual) Nucleated RBC % Seg Neutrophils # Seg Neutrophils # Man 12.6 H Lymphocytes # (Manual) 0.9 L Monocytes # (Manual) Eosinophils # (Manual) Basophils # (Manual) PT INR Fibrinogen dRVVT Confirm Interp Factor V Activity POC ABG pH 7.486 H POC ABG pCO2 30.1 L POC ABG pO2 108 H ABG pO2 ABG HCO3 ABG Base Excess ABG Hemoglobin Oxyhemoglobin Sodium 131 L Potassium 3.4 L Chloride 89.9 L Carbon Dioxide BUN 26 H Creatinine 2.6 H Glucose POC Glucose Lactic Acid Calcium 7.0 L Phosphorus Magnesium Direct Bilirubin AST ALT Alkaline Phosphatase Lactate Dehydrogenase Troponin T C-Reactive Protein Total Protein Albumin Prealbumin Triglycerides Cholesterol LDL Cholesterol Direct HDL Cholesterol PTH Intact Urine pH Urine WBC (Auto) Urine Creatinine Urine Total Protein Fluid Total Protein Vancomycin Trough Rheumatoid Factor Complement C4 Miscellaneous Test Crossmatch 10/02/16 10/03/16 10/03/16 23:45 00:45 05:10 WBC 12.9 H RBC 2.77 L Hgb 7.6 L Hct 23.7 L MCV MCH 27 L MCHC RDW 19.7 H Plt Count 89 L Lymph % (Auto) Brown % (Auto) Lymph # Brown # Baso # Seg Neutrophils % Seg Neuts % (Manual) Lymphocytes % (Manual) 8.0 L Monocytes % (Manual) Eosinophils % (Manual) Basophils % (Manual) Nucleated RBC % Seg Neutrophils # 11.9 H Seg Neutrophils # Man Lymphocytes # (Manual) 1.0 L Monocytes # (Manual) Eosinophils # (Manual) Basophils # (Manual) PT INR Fibrinogen dRVVT Confirm Interp Factor V Activity POC ABG pH POC ABG pCO2 POC ABG pO2 ABG pO2 ABG HCO3 ABG Base Excess ABG Hemoglobin Oxyhemoglobin Sodium Potassium Chloride Carbon Dioxide BUN Creatinine Glucose POC Glucose 55 L 199 H Lactic Acid Calcium Phosphorus Magnesium Direct Bilirubin AST ALT Alkaline Phosphatase Lactate Dehydrogenase Troponin T C-Reactive Protein Total Protein Albumin Prealbumin Triglycerides Cholesterol LDL Cholesterol Direct HDL Cholesterol PTH Intact Urine pH Urine WBC (Auto) Urine Creatinine Urine Total Protein Fluid Total Protein Vancomycin Trough Rheumatoid Factor Complement C4 Miscellaneous Test Crossmatch 10/03/16 10/03/16 10/03/16 05:10 12:14 13:18 WBC RBC Hgb Hct MCV MCH MCHC RDW Plt Count Lymph % (Auto) Brown % (Auto) Lymph # Brown # Baso # Seg Neutrophils % Seg Neuts % (Manual) Lymphocytes % (Manual) Monocytes % (Manual) Eosinophils % (Manual) Basophils % (Manual) Nucleated RBC % Seg Neutrophils # Seg Neutrophils # Man Lymphocytes # (Manual) Monocytes # (Manual) Eosinophils # (Manual) Basophils # (Manual) PT INR Fibrinogen dRVVT Confirm Interp Factor V Activity POC ABG pH POC ABG pCO2 POC ABG pO2 ABG pO2 ABG HCO3 ABG Base Excess ABG Hemoglobin Oxyhemoglobin Sodium 129 L Potassium 3.3 L Chloride 88.8 L Carbon Dioxide 20 L BUN 29 H Creatinine 2.8 H Glucose POC Glucose 68 L 127 H Lactic Acid Calcium 7.2 L Phosphorus Magnesium Direct Bilirubin AST ALT Alkaline Phosphatase Lactate Dehydrogenase Troponin T C-Reactive Protein Total Protein Albumin Prealbumin Triglycerides Cholesterol LDL Cholesterol Direct HDL Cholesterol PTH Intact Urine pH Urine WBC (Auto) Urine Creatinine Urine Total Protein Fluid Total Protein Vancomycin Trough Rheumatoid Factor Complement C4 Miscellaneous Test Crossmatch 10/03/16 10/03/16 10/03/16 14:42 18:21 19:09 WBC RBC Hgb Hct MCV MCH MCHC RDW Plt Count Lymph % (Auto) Brown % (Auto) Lymph # Brown # Baso # Seg Neutrophils % Seg Neuts % (Manual) Lymphocytes % (Manual) Monocytes % (Manual) Eosinophils % (Manual) Basophils % (Manual) Nucleated RBC % Seg Neutrophils # Seg Neutrophils # Man Lymphocytes # (Manual) Monocytes # (Manual) Eosinophils # (Manual) Basophils # (Manual) PT INR Fibrinogen dRVVT Confirm Interp Factor V Activity POC ABG pH 7.499 H POC ABG pCO2 28.4 L POC ABG pO2 44 L ABG pO2 ABG HCO3 ABG Base Excess ABG Hemoglobin Oxyhemoglobin Sodium Potassium Chloride Carbon Dioxide BUN Creatinine Glucose POC Glucose 64 L 205 H Lactic Acid Calcium Phosphorus Magnesium Direct Bilirubin AST ALT Alkaline Phosphatase Lactate Dehydrogenase Troponin T C-Reactive Protein Total Protein Albumin Prealbumin Triglycerides Cholesterol LDL Cholesterol Direct HDL Cholesterol PTH Intact Urine pH Urine WBC (Auto) Urine Creatinine Urine Total Protein Fluid Total Protein Vancomycin Trough Rheumatoid Factor Complement C4 Miscellaneous Test Crossmatch 10/03/16 10/04/16 10/04/16 23:33 04:18 06:30 WBC RBC 2.54 L Hgb 7.1 L Hct 21.7 L MCV MCH MCHC RDW 19.5 H Plt Count 76 L Lymph % (Auto) Brown % (Auto) Lymph # Brown # Baso # Seg Neutrophils % Seg Neuts % (Manual) 88.0 H Lymphocytes % (Manual) 6.0 L Monocytes % (Manual) Eosinophils % (Manual) Basophils % (Manual) Nucleated RBC % Seg Neutrophils # Seg Neutrophils # Man 8.8 H Lymphocytes # (Manual) 0.6 L Monocytes # (Manual) Eosinophils # (Manual) Basophils # (Manual) PT INR Fibrinogen dRVVT Confirm Interp Factor V Activity POC ABG pH 7.461 H POC ABG pCO2 33.6 L POC ABG pO2 211 H ABG pO2 ABG HCO3 ABG Base Excess ABG Hemoglobin Oxyhemoglobin Sodium Potassium Chloride Carbon Dioxide BUN Creatinine Glucose POC Glucose 136 H Lactic Acid Calcium Phosphorus Magnesium Direct Bilirubin AST ALT Alkaline Phosphatase Lactate Dehydrogenase Troponin T C-Reactive Protein Total Protein Albumin Prealbumin Triglycerides Cholesterol LDL Cholesterol Direct HDL Cholesterol PTH Intact Urine pH Urine WBC (Auto) Urine Creatinine Urine Total Protein Fluid Total Protein Vancomycin Trough Rheumatoid Factor Complement C4 Miscellaneous Test Crossmatch 10/04/16 10/04/16 10/04/16 06:30 11:45 17:54 WBC RBC Hgb Hct MCV MCH MCHC RDW Plt Count Lymph % (Auto) Brown % (Auto) Lymph # Brown # Baso # Seg Neutrophils % Seg Neuts % (Manual) Lymphocytes % (Manual) Monocytes % (Manual) Eosinophils % (Manual) Basophils % (Manual) Nucleated RBC % Seg Neutrophils # Seg Neutrophils # Man Lymphocytes # (Manual) Monocytes # (Manual) Eosinophils # (Manual) Basophils # (Manual) PT INR Fibrinogen dRVVT Confirm Interp Factor V Activity POC ABG pH POC ABG pCO2 POC ABG pO2 ABG pO2 ABG HCO3 ABG Base Excess ABG Hemoglobin Oxyhemoglobin Sodium 128 L Potassium Chloride 87.4 L Carbon Dioxide 20 L BUN 34 H Creatinine 2.9 H Glucose 127 H POC Glucose 158 H 160 H Lactic Acid Calcium 7.4 L Phosphorus Magnesium Direct Bilirubin AST ALT Alkaline Phosphatase Lactate Dehydrogenase Troponin T C-Reactive Protein Total Protein Albumin Prealbumin Triglycerides Cholesterol LDL Cholesterol Direct HDL Cholesterol PTH Intact Urine pH Urine WBC (Auto) Urine Creatinine Urine Total Protein Fluid Total Protein Vancomycin Trough Rheumatoid Factor Complement C4 Miscellaneous Test Crossmatch 10/04/16 10/05/16 10/05/16 23:25 04:30 05:00 WBC RBC 2.64 L Hgb 7.5 L Hct 22.6 L MCV MCH MCHC RDW 19.3 H Plt Count 80 L Lymph % (Auto) Brown % (Auto) Lymph # Brown # Baso # Seg Neutrophils % Seg Neuts % (Manual) Lymphocytes % (Manual) 12.0 L Monocytes % (Manual) Eosinophils % (Manual) Basophils % (Manual) Nucleated RBC % Seg Neutrophils # Seg Neutrophils # Man Lymphocytes # (Manual) Monocytes # (Manual) Eosinophils # (Manual) Basophils # (Manual) PT INR Fibrinogen dRVVT Confirm Interp Factor V Activity POC ABG pH 7.475 H POC ABG pCO2 33.3 L POC ABG pO2 140 H ABG pO2 ABG HCO3 ABG Base Excess ABG Hemoglobin Oxyhemoglobin Sodium Potassium Chloride Carbon Dioxide BUN Creatinine Glucose POC Glucose 141 H Lactic Acid Calcium Phosphorus Magnesium Direct Bilirubin AST ALT Alkaline Phosphatase Lactate Dehydrogenase Troponin T C-Reactive Protein Total Protein Albumin Prealbumin Triglycerides Cholesterol LDL Cholesterol Direct HDL Cholesterol PTH Intact Urine pH Urine WBC (Auto) Urine Creatinine Urine Total Protein Fluid Total Protein Vancomycin Trough Rheumatoid Factor Complement C4 Miscellaneous Test Crossmatch 10/05/16 10/05/16 10/05/16 05:00 05:09 12:58 WBC RBC Hgb Hct MCV MCH MCHC RDW Plt Count Lymph % (Auto) Brown % (Auto) Lymph # Brown # Baso # Seg Neutrophils % Seg Neuts % (Manual) Lymphocytes % (Manual) Monocytes % (Manual) Eosinophils % (Manual) Basophils % (Manual) Nucleated RBC % Seg Neutrophils # Seg Neutrophils # Man Lymphocytes # (Manual) Monocytes # (Manual) Eosinophils # (Manual) Basophils # (Manual) PT INR Fibrinogen dRVVT Confirm Interp Factor V Activity POC ABG pH POC ABG pCO2 POC ABG pO2 ABG pO2 ABG HCO3 ABG Base Excess ABG Hemoglobin Oxyhemoglobin Sodium 131 L Potassium Chloride 94.0 L Carbon Dioxide 20 L BUN 22 H Creatinine 2.0 H Glucose 123 H POC Glucose 166 H 179 H Lactic Acid Calcium 7.7 L Phosphorus 2.20 L D Magnesium Direct Bilirubin AST ALT Alkaline Phosphatase Lactate Dehydrogenase Troponin T C-Reactive Protein Total Protein Albumin Prealbumin Triglycerides Cholesterol LDL Cholesterol Direct HDL Cholesterol PTH Intact Urine pH Urine WBC (Auto) Urine Creatinine Urine Total Protein Fluid Total Protein Vancomycin Trough Rheumatoid Factor Complement C4 Miscellaneous Test Crossmatch 10/05/16 10/05/16 10/05/16 15:50 18:53 23:12 WBC RBC Hgb Hct MCV MCH MCHC RDW Plt Count Lymph % (Auto) Brown % (Auto) Lymph # Brown # Baso # Seg Neutrophils % Seg Neuts % (Manual) Lymphocytes % (Manual) Monocytes % (Manual) Eosinophils % (Manual) Basophils % (Manual) Nucleated RBC % Seg Neutrophils # Seg Neutrophils # Man Lymphocytes # (Manual) Monocytes # (Manual) Eosinophils # (Manual) Basophils # (Manual) PT INR Fibrinogen dRVVT Confirm Interp Factor V Activity POC ABG pH POC ABG pCO2 POC ABG pO2 ABG pO2 ABG HCO3 ABG Base Excess ABG Hemoglobin Oxyhemoglobin Sodium Potassium Chloride Carbon Dioxide BUN Creatinine Glucose POC Glucose 150 H 164 H Lactic Acid Calcium Phosphorus Magnesium Direct Bilirubin AST ALT Alkaline Phosphatase Lactate Dehydrogenase Troponin T C-Reactive Protein Total Protein Albumin Prealbumin Triglycerides Cholesterol LDL Cholesterol Direct HDL Cholesterol PTH Intact Urine pH Urine WBC (Auto) Urine Creatinine Urine Total Protein Fluid Total Protein Vancomycin Trough Rheumatoid Factor Complement C4 Miscellaneous Test Crossmatch See Detail 10/06/16 10/06/16 10/06/16 03:50 03:50 04:53 WBC RBC 3.00 L Hgb 8.6 L Hct 25.8 L MCV MCH MCHC RDW 17.9 H Plt Count 65 L Lymph % (Auto) Brown % (Auto) Lymph # Brown # Baso # Seg Neutrophils % Seg Neuts % (Manual) 30.0 L Lymphocytes % (Manual) 5.0 L Monocytes % (Manual) Eosinophils % (Manual) Basophils % (Manual) Nucleated RBC % Seg Neutrophils # Seg Neutrophils # Man Lymphocytes # (Manual) 0.4 L Monocytes # (Manual) Eosinophils # (Manual) Basophils # (Manual) PT INR Fibrinogen dRVVT Confirm Interp Factor V Activity POC ABG pH 7.310 L POC ABG pCO2 49.0 H POC ABG pO2 ABG pO2 ABG HCO3 ABG Base Excess ABG Hemoglobin Oxyhemoglobin Sodium 133 L Potassium Chloride 95.9 L Carbon Dioxide BUN 26 H Creatinine 2.0 H Glucose 116 H POC Glucose Lactic Acid Calcium 7.8 L Phosphorus Magnesium Direct Bilirubin AST ALT Alkaline Phosphatase Lactate Dehydrogenase Troponin T C-Reactive Protein Total Protein Albumin Prealbumin Triglycerides Cholesterol LDL Cholesterol Direct HDL Cholesterol PTH Intact Urine pH Urine WBC (Auto) Urine Creatinine Urine Total Protein Fluid Total Protein Vancomycin Trough Rheumatoid Factor Complement C4 Miscellaneous Test Crossmatch 10/06/16 10/06/16 10/06/16 05:23 11:52 18:34 WBC RBC Hgb Hct MCV MCH MCHC RDW Plt Count Lymph % (Auto) Brown % (Auto) Lymph # Brown # Baso # Seg Neutrophils % Seg Neuts % (Manual) Lymphocytes % (Manual) Monocytes % (Manual) Eosinophils % (Manual) Basophils % (Manual) Nucleated RBC % Seg Neutrophils # Seg Neutrophils # Man Lymphocytes # (Manual) Monocytes # (Manual) Eosinophils # (Manual) Basophils # (Manual) PT INR Fibrinogen dRVVT Confirm Interp Factor V Activity POC ABG pH POC ABG pCO2 POC ABG pO2 ABG pO2 ABG HCO3 ABG Base Excess ABG Hemoglobin Oxyhemoglobin Sodium Potassium Chloride Carbon Dioxide BUN Creatinine Glucose POC Glucose 126 H 116 H 129 H Lactic Acid Calcium Phosphorus Magnesium Direct Bilirubin AST ALT Alkaline Phosphatase Lactate Dehydrogenase Troponin T C-Reactive Protein Total Protein Albumin Prealbumin Triglycerides Cholesterol LDL Cholesterol Direct HDL Cholesterol PTH Intact Urine pH Urine WBC (Auto) Urine Creatinine Urine Total Protein Fluid Total Protein Vancomycin Trough Rheumatoid Factor Complement C4 Miscellaneous Test Crossmatch 10/07/16 10/07/16 10/07/16 03:45 05:00 10:00 WBC 17.0 H RBC 2.68 L Hgb 7.3 L Hct 25.3 L MCV MCH 27 L MCHC 29 L RDW 19.6 H Plt Count 74 L Lymph % (Auto) Brown % (Auto) Lymph # Brown # Baso # Seg Neutrophils % Seg Neuts % (Manual) Lymphocytes % (Manual) 12.0 L Monocytes % (Manual) Eosinophils % (Manual) Basophils % (Manual) Nucleated RBC % 4.0 H Seg Neutrophils # Seg Neutrophils # Man 10.7 H Lymphocytes # (Manual) Monocytes # (Manual) Eosinophils # (Manual) Basophils # (Manual) PT INR Fibrinogen dRVVT Confirm Interp Factor V Activity POC ABG pH POC ABG pCO2 POC ABG pO2 ABG pO2 ABG HCO3 ABG Base Excess ABG Hemoglobin Oxyhemoglobin Sodium 130 L Potassium 3.2 L Chloride 93.9 L Carbon Dioxide 20 L BUN 44 H Creatinine 2.7 H Glucose 129 H POC Glucose Lactic Acid Calcium 7.4 L Phosphorus Magnesium Direct Bilirubin AST ALT 6 L Alkaline Phosphatase 195 H Lactate Dehydrogenase Troponin T C-Reactive Protein Total Protein 4.9 L Albumin 1.0 L Prealbumin Triglycerides Cholesterol LDL Cholesterol Direct HDL Cholesterol PTH Intact Urine pH Urine WBC (Auto) Urine Creatinine Urine Total Protein Fluid Total Protein Vancomycin Trough Rheumatoid Factor Complement C4 Miscellaneous Test Flexitest 1 H Crossmatch 10/07/16 10/07/16 10/07/16 10:00 11:24 18:10 WBC RBC Hgb Hct MCV MCH MCHC RDW Plt Count Lymph % (Auto) Brown % (Auto) Lymph # Brown # Baso # Seg Neutrophils % Seg Neuts % (Manual) Lymphocytes % (Manual) Monocytes % (Manual) Eosinophils % (Manual) Basophils % (Manual) Nucleated RBC % Seg Neutrophils # Seg Neutrophils # Man Lymphocytes # (Manual) Monocytes # (Manual) Eosinophils # (Manual) Basophils # (Manual) PT INR Fibrinogen dRVVT Confirm Interp Factor V Activity POC ABG pH POC ABG pCO2 POC ABG pO2 ABG pO2 ABG HCO3 ABG Base Excess ABG Hemoglobin Oxyhemoglobin Sodium Potassium Chloride Carbon Dioxide BUN Creatinine Glucose POC Glucose 116 H 130 H Lactic Acid Calcium Phosphorus Magnesium Direct Bilirubin AST ALT Alkaline Phosphatase Lactate Dehydrogenase Troponin T C-Reactive Protein 19.40 H Total Protein Albumin Prealbumin Triglycerides Cholesterol LDL Cholesterol Direct HDL Cholesterol PTH Intact Urine pH Urine WBC (Auto) Urine Creatinine Urine Total Protein Fluid Total Protein Vancomycin Trough Rheumatoid Factor Complement C4 Miscellaneous Test Crossmatch 10/07/16 10/08/16 10/08/16 18:30 00:00 04:00 WBC RBC Hgb Hct MCV MCH MCHC RDW Plt Count Lymph % (Auto) Brown % (Auto) Lymph # Brown # Baso # Seg Neutrophils % Seg Neuts % (Manual) Lymphocytes % (Manual) Monocytes % (Manual) Eosinophils % (Manual) Basophils % (Manual) Nucleated RBC % Seg Neutrophils # Seg Neutrophils # Man Lymphocytes # (Manual) Monocytes # (Manual) Eosinophils # (Manual) Basophils # (Manual) PT INR Fibrinogen dRVVT Confirm Interp Factor V Activity POC ABG pH POC ABG pCO2 POC ABG pO2 ABG pO2 ABG HCO3 ABG Base Excess ABG Hemoglobin Oxyhemoglobin Sodium 132 L Potassium 3.3 L Chloride 93.6 L Carbon Dioxide 17 L BUN 59 H Creatinine 2.7 H Glucose 121 H POC Glucose 122 H Lactic Acid Calcium 7.6 L Phosphorus Magnesium Direct Bilirubin AST ALT Alkaline Phosphatase Lactate Dehydrogenase Troponin T C-Reactive Protein Total Protein Albumin Prealbumin Triglycerides Cholesterol LDL Cholesterol Direct HDL Cholesterol PTH Intact Urine pH Urine WBC (Auto) > 182.0 H Urine Creatinine Urine Total Protein Fluid Total Protein Vancomycin Trough Rheumatoid Factor Complement C4 Miscellaneous Test Crossmatch 10/08/16 10/08/16 10/08/16 04:30 05:30 11:51 WBC RBC 5.15 H Hgb 14.4 H D Hct 44.5 H D MCV MCH MCHC RDW 19.5 H Plt Count 56 L Lymph % (Auto) Brown % (Auto) Lymph # Brown # Baso # Seg Neutrophils % Seg Neuts % (Manual) 24.0 L Lymphocytes % (Manual) 8.0 L Monocytes % (Manual) Eosinophils % (Manual) Basophils % (Manual) Nucleated RBC % 9.0 H Seg Neutrophils # Seg Neutrophils # Man Lymphocytes # (Manual) 0.7 L Monocytes # (Manual) Eosinophils # (Manual) Basophils # (Manual) PT INR Fibrinogen dRVVT Confirm Interp Factor V Activity POC ABG pH POC ABG pCO2 POC ABG pO2 ABG pO2 ABG HCO3 ABG Base Excess ABG Hemoglobin Oxyhemoglobin Sodium Potassium Chloride Carbon Dioxide BUN Creatinine Glucose POC Glucose 125 H 150 H Lactic Acid Calcium Phosphorus Magnesium Direct Bilirubin AST ALT Alkaline Phosphatase Lactate Dehydrogenase Troponin T C-Reactive Protein Total Protein Albumin Prealbumin Triglycerides Cholesterol LDL Cholesterol Direct HDL Cholesterol PTH Intact Urine pH Urine WBC (Auto) Urine Creatinine Urine Total Protein Fluid Total Protein Vancomycin Trough Rheumatoid Factor Complement C4 Miscellaneous Test Crossmatch 10/08/16 10/08/16 10/08/16 12:49 17:07 19:30 WBC RBC Hgb 7.1 L D Hct 22.4 L D MCV MCH MCHC RDW Plt Count Lymph % (Auto) Brown % (Auto) Lymph # Brown # Baso # Seg Neutrophils % Seg Neuts % (Manual) Lymphocytes % (Manual) Monocytes % (Manual) Eosinophils % (Manual) Basophils % (Manual) Nucleated RBC % Seg Neutrophils # Seg Neutrophils # Man Lymphocytes # (Manual) Monocytes # (Manual) Eosinophils # (Manual) Basophils # (Manual) PT INR Fibrinogen dRVVT Confirm Interp Factor V Activity POC ABG pH POC ABG pCO2 28.2 L POC ABG pO2 111 H ABG pO2 ABG HCO3 ABG Base Excess ABG Hemoglobin Oxyhemoglobin Sodium Potassium Chloride Carbon Dioxide BUN Creatinine Glucose POC Glucose 145 H Lactic Acid Calcium Phosphorus Magnesium Direct Bilirubin AST ALT Alkaline Phosphatase Lactate Dehydrogenase Troponin T C-Reactive Protein Total Protein Albumin Prealbumin Triglycerides Cholesterol LDL Cholesterol Direct HDL Cholesterol PTH Intact Urine pH Urine WBC (Auto) Urine Creatinine Urine Total Protein Fluid Total Protein Vancomycin Trough Rheumatoid Factor Complement C4 Miscellaneous Test Crossmatch 10/08/16 10/09/16 10/09/16 19:30 03:45 03:45 WBC 12.6 H RBC 2.36 L Hgb 6.7 L Hct 21.1 L MCV MCH MCHC RDW 19.5 H Plt Count 75 L Lymph % (Auto) Brown % (Auto) Lymph # Brown # Baso # Seg Neutrophils % Seg Neuts % (Manual) Lymphocytes % (Manual) Monocytes % (Manual) 10.0 H Eosinophils % (Manual) Basophils % (Manual) Nucleated RBC % 3.0 H Seg Neutrophils # Seg Neutrophils # Man Lymphocytes # (Manual) Monocytes # (Manual) 1.3 H Eosinophils # (Manual) Basophils # (Manual) PT 18.0 H INR 1.41 H Fibrinogen dRVVT Confirm Interp Factor V Activity POC ABG pH POC ABG pCO2 POC ABG pO2 ABG pO2 ABG HCO3 ABG Base Excess ABG Hemoglobin Oxyhemoglobin Sodium 135 L Potassium Chloride Carbon Dioxide 17 L BUN 81 H Creatinine 3.2 H Glucose 109 H POC Glucose Lactic Acid Calcium 7.4 L Phosphorus 4.60 H D Magnesium Direct Bilirubin AST ALT Alkaline Phosphatase Lactate Dehydrogenase Troponin T C-Reactive Protein Total Protein Albumin Prealbumin Triglycerides Cholesterol LDL Cholesterol Direct HDL Cholesterol PTH Intact Urine pH Urine WBC (Auto) Urine Creatinine Urine Total Protein Fluid Total Protein Vancomycin Trough Rheumatoid Factor Complement C4 Miscellaneous Test Crossmatch 10/09/16 10/09/16 10/09/16 03:45 05:14 07:20 WBC RBC Hgb Hct MCV MCH MCHC RDW Plt Count Lymph % (Auto) Brown % (Auto) Lymph # Brown # Baso # Seg Neutrophils % Seg Neuts % (Manual) Lymphocytes % (Manual) Monocytes % (Manual) Eosinophils % (Manual) Basophils % (Manual) Nucleated RBC % Seg Neutrophils # Seg Neutrophils # Man Lymphocytes # (Manual) Monocytes # (Manual) Eosinophils # (Manual) Basophils # (Manual) PT 19.0 H INR 1.51 H Fibrinogen dRVVT Confirm Interp Factor V Activity POC ABG pH POC ABG pCO2 POC ABG pO2 ABG pO2 ABG HCO3 ABG Base Excess ABG Hemoglobin Oxyhemoglobin Sodium Potassium Chloride Carbon Dioxide BUN Creatinine Glucose POC Glucose 151 H Lactic Acid Calcium Phosphorus Magnesium Direct Bilirubin AST ALT Alkaline Phosphatase Lactate Dehydrogenase Troponin T C-Reactive Protein Total Protein Albumin Prealbumin Triglycerides Cholesterol LDL Cholesterol Direct HDL Cholesterol PTH Intact Urine pH Urine WBC (Auto) Urine Creatinine Urine Total Protein Fluid Total Protein Vancomycin Trough Rheumatoid Factor Complement C4 Miscellaneous Test Crossmatch See Detail 10/09/16 10/09/16 10/09/16 11:46 16:20 16:43 WBC RBC Hgb 7.2 L Hct 22.2 L MCV MCH MCHC RDW Plt Count Lymph % (Auto) Brown % (Auto) Lymph # Brown # Baso # Seg Neutrophils % Seg Neuts % (Manual) Lymphocytes % (Manual) Monocytes % (Manual) Eosinophils % (Manual) Basophils % (Manual) Nucleated RBC % Seg Neutrophils # Seg Neutrophils # Man Lymphocytes # (Manual) Monocytes # (Manual) Eosinophils # (Manual) Basophils # (Manual) PT INR Fibrinogen dRVVT Confirm Interp Factor V Activity POC ABG pH POC ABG pCO2 POC ABG pO2 ABG pO2 ABG HCO3 ABG Base Excess ABG Hemoglobin Oxyhemoglobin Sodium Potassium Chloride Carbon Dioxide BUN Creatinine Glucose POC Glucose 133 H 141 H Lactic Acid Calcium Phosphorus Magnesium Direct Bilirubin AST ALT Alkaline Phosphatase Lactate Dehydrogenase Troponin T C-Reactive Protein Total Protein Albumin Prealbumin Triglycerides Cholesterol LDL Cholesterol Direct HDL Cholesterol PTH Intact Urine pH Urine WBC (Auto) Urine Creatinine Urine Total Protein Fluid Total Protein Vancomycin Trough Rheumatoid Factor Complement C4 Miscellaneous Test Crossmatch 10/10/16 10/10/16 10/10/16 05:00 05:00 11:19 WBC 18.5 H RBC 2.19 L Hgb 6.4 L Hct 19.6 L* MCV MCH MCHC RDW 19.3 H Plt Count 93 L Lymph % (Auto) Brown % (Auto) Lymph # Brown # Baso # Seg Neutrophils % Seg Neuts % (Manual) Lymphocytes % (Manual) 10.0 L Monocytes % (Manual) Eosinophils % (Manual) Basophils % (Manual) Nucleated RBC % 4.0 H Seg Neutrophils # Seg Neutrophils # Man 11.3 H Lymphocytes # (Manual) Monocytes # (Manual) Eosinophils # (Manual) Basophils # (Manual) PT INR Fibrinogen dRVVT Confirm Interp Factor V Activity POC ABG pH POC ABG pCO2 POC ABG pO2 ABG pO2 ABG HCO3 ABG Base Excess ABG Hemoglobin Oxyhemoglobin Sodium Potassium 5.7 H D Chloride Carbon Dioxide 16 L BUN 94 H Creatinine 3.1 H Glucose 131 H POC Glucose 153 H Lactic Acid Calcium 8.2 L Phosphorus 5.10 H Magnesium 2.40 H Direct Bilirubin 0.3 H AST ALT < 5 L Alkaline Phosphatase 319 H Lactate Dehydrogenase Troponin T C-Reactive Protein Total Protein 5.1 L Albumin 1.0 L Prealbumin Triglycerides Cholesterol LDL Cholesterol Direct HDL Cholesterol PTH Intact Urine pH Urine WBC (Auto) Urine Creatinine Urine Total Protein Fluid Total Protein Vancomycin Trough Rheumatoid Factor Complement C4 Miscellaneous Test Crossmatch 10/10/16 10/10/16 10/11/16 17:50 23:30 04:15 WBC RBC Hgb Hct MCV MCH MCHC RDW Plt Count Lymph % (Auto) Brown % (Auto) Lymph # Brown # Baso # Seg Neutrophils % Seg Neuts % (Manual) Lymphocytes % (Manual) Monocytes % (Manual) Eosinophils % (Manual) Basophils % (Manual) Nucleated RBC % Seg Neutrophils # Seg Neutrophils # Man Lymphocytes # (Manual) Monocytes # (Manual) Eosinophils # (Manual) Basophils # (Manual) PT INR Fibrinogen dRVVT Confirm Interp Factor V Activity POC ABG pH POC ABG pCO2 POC ABG pO2 ABG pO2 ABG HCO3 ABG Base Excess ABG Hemoglobin Oxyhemoglobin Sodium Potassium Chloride 96.4 L Carbon Dioxide 21 L BUN 57 H Creatinine 2.1 H Glucose 151 H POC Glucose 146 H 141 H Lactic Acid Calcium 8.3 L Phosphorus Magnesium Direct Bilirubin AST ALT Alkaline Phosphatase Lactate Dehydrogenase Troponin T C-Reactive Protein Total Protein Albumin Prealbumin Triglycerides Cholesterol LDL Cholesterol Direct HDL Cholesterol PTH Intact Urine pH Urine WBC (Auto) Urine Creatinine Urine Total Protein Fluid Total Protein Vancomycin Trough Rheumatoid Factor Complement C4 Miscellaneous Test Crossmatch 10/11/16 10/11/16 10/11/16 04:15 04:15 05:30 WBC 28.3 H RBC 3.12 L Hgb 9.3 L Hct 28.7 L D MCV MCH MCHC RDW 17.7 H Plt Count 128 L Lymph % (Auto) Brown % (Auto) Lymph # Brown # Baso # Seg Neutrophils % Seg Neuts % (Manual) Lymphocytes % (Manual) Monocytes % (Manual) Eosinophils % (Manual) Basophils % (Manual) Nucleated RBC % Seg Neutrophils # Seg Neutrophils # Man Lymphocytes # (Manual) Monocytes # (Manual) Eosinophils # (Manual) Basophils # (Manual) PT INR Fibrinogen dRVVT Confirm Interp Factor V Activity POC ABG pH POC ABG pCO2 POC ABG pO2 ABG pO2 ABG HCO3 ABG Base Excess ABG Hemoglobin Oxyhemoglobin Sodium Potassium Chloride Carbon Dioxide BUN Creatinine Glucose POC Glucose 167 H Lactic Acid Calcium Phosphorus Magnesium Direct Bilirubin AST ALT Alkaline Phosphatase Lactate Dehydrogenase Troponin T C-Reactive Protein 15.80 H Total Protein Albumin Prealbumin Triglycerides Cholesterol LDL Cholesterol Direct HDL Cholesterol PTH Intact Urine pH Urine WBC (Auto) Urine Creatinine Urine Total Protein Fluid Total Protein Vancomycin Trough Rheumatoid Factor Complement C4 Miscellaneous Test Crossmatch 10/11/16 10/11/16 10/11/16 11:40 15:49 23:57 WBC RBC Hgb Hct MCV MCH MCHC RDW Plt Count Lymph % (Auto) Brown % (Auto) Lymph # Brown # Baso # Seg Neutrophils % Seg Neuts % (Manual) Lymphocytes % (Manual) Monocytes % (Manual) Eosinophils % (Manual) Basophils % (Manual) Nucleated RBC % Seg Neutrophils # Seg Neutrophils # Man Lymphocytes # (Manual) Monocytes # (Manual) Eosinophils # (Manual) Basophils # (Manual) PT INR Fibrinogen dRVVT Confirm Interp Factor V Activity POC ABG pH POC ABG pCO2 POC ABG pO2 ABG pO2 ABG HCO3 ABG Base Excess ABG Hemoglobin Oxyhemoglobin Sodium Potassium Chloride Carbon Dioxide BUN Creatinine Glucose POC Glucose 139 H 168 H 161 H Lactic Acid Calcium Phosphorus Magnesium Direct Bilirubin AST ALT Alkaline Phosphatase Lactate Dehydrogenase Troponin T C-Reactive Protein Total Protein Albumin Prealbumin Triglycerides Cholesterol LDL Cholesterol Direct HDL Cholesterol PTH Intact Urine pH Urine WBC (Auto) Urine Creatinine Urine Total Protein Fluid Total Protein Vancomycin Trough Rheumatoid Factor Complement C4 Miscellaneous Test Crossmatch 10/12/16 10/12/16 10/12/16 04:40 04:40 05:44 WBC 22.5 H RBC 2.88 L Hgb 8.8 L Hct 26.8 L MCV MCH MCHC RDW 17.8 H Plt Count Lymph % (Auto) Brown % (Auto) Lymph # Brown # Baso # Seg Neutrophils % Seg Neuts % (Manual) Lymphocytes % (Manual) Monocytes % (Manual) Eosinophils % (Manual) Basophils % (Manual) Nucleated RBC % Seg Neutrophils # Seg Neutrophils # Man Lymphocytes # (Manual) Monocytes # (Manual) Eosinophils # (Manual) Basophils # (Manual) PT INR Fibrinogen dRVVT Confirm Interp Factor V Activity POC ABG pH POC ABG pCO2 POC ABG pO2 ABG pO2 ABG HCO3 ABG Base Excess ABG Hemoglobin Oxyhemoglobin Sodium 134 L Potassium Chloride 93.0 L Carbon Dioxide BUN 74 H Creatinine 2.5 H Glucose 137 H POC Glucose 158 H Lactic Acid Calcium 8.2 L Phosphorus Magnesium Direct Bilirubin AST ALT Alkaline Phosphatase Lactate Dehydrogenase Troponin T C-Reactive Protein Total Protein Albumin Prealbumin Triglycerides Cholesterol LDL Cholesterol Direct HDL Cholesterol PTH Intact Urine pH Urine WBC (Auto) Urine Creatinine Urine Total Protein Fluid Total Protein Vancomycin Trough Rheumatoid Factor Complement C4 Miscellaneous Test Crossmatch 10/12/16 10/12/16 10/12/16 12:27 18:18 23:46 WBC RBC Hgb Hct MCV MCH MCHC RDW Plt Count Lymph % (Auto) Brown % (Auto) Lymph # Brown # Baso # Seg Neutrophils % Seg Neuts % (Manual) Lymphocytes % (Manual) Monocytes % (Manual) Eosinophils % (Manual) Basophils % (Manual) Nucleated RBC % Seg Neutrophils # Seg Neutrophils # Man Lymphocytes # (Manual) Monocytes # (Manual) Eosinophils # (Manual) Basophils # (Manual) PT INR Fibrinogen dRVVT Confirm Interp Factor V Activity POC ABG pH POC ABG pCO2 POC ABG pO2 ABG pO2 ABG HCO3 ABG Base Excess ABG Hemoglobin Oxyhemoglobin Sodium Potassium Chloride Carbon Dioxide BUN Creatinine Glucose POC Glucose 153 H 140 H 150 H Lactic Acid Calcium Phosphorus Magnesium Direct Bilirubin AST ALT Alkaline Phosphatase Lactate Dehydrogenase Troponin T C-Reactive Protein Total Protein Albumin Prealbumin Triglycerides Cholesterol LDL Cholesterol Direct HDL Cholesterol PTH Intact Urine pH Urine WBC (Auto) Urine Creatinine Urine Total Protein Fluid Total Protein Vancomycin Trough Rheumatoid Factor Complement C4 Miscellaneous Test Crossmatch 10/13/16 10/13/16 10/13/16 06:22 09:20 12:29 WBC RBC Hgb Hct MCV MCH MCHC RDW Plt Count Lymph % (Auto) Brown % (Auto) Lymph # Brown # Baso # Seg Neutrophils % Seg Neuts % (Manual) Lymphocytes % (Manual) Monocytes % (Manual) Eosinophils % (Manual) Basophils % (Manual) Nucleated RBC % Seg Neutrophils # Seg Neutrophils # Man Lymphocytes # (Manual) Monocytes # (Manual) Eosinophils # (Manual) Basophils # (Manual) PT INR Fibrinogen dRVVT Confirm Interp Factor V Activity POC ABG pH POC ABG pCO2 POC ABG pO2 ABG pO2 ABG HCO3 ABG Base Excess ABG Hemoglobin Oxyhemoglobin Sodium Potassium Chloride Carbon Dioxide BUN Creatinine Glucose POC Glucose 165 H 193 H Lactic Acid Calcium Phosphorus Magnesium Direct Bilirubin AST ALT Alkaline Phosphatase Lactate Dehydrogenase Troponin T C-Reactive Protein Total Protein Albumin Prealbumin Triglycerides Cholesterol LDL Cholesterol Direct HDL Cholesterol PTH Intact Urine pH Urine WBC (Auto) Urine Creatinine Urine Total Protein Fluid Total Protein Vancomycin Trough Rheumatoid Factor Complement C4 Miscellaneous Test Flexitest 1 H Crossmatch 10/13/16 10/13/16 10/13/16 18:09 Unknown Unknown WBC 23.4 H RBC 2.83 L Hgb 8.7 L Hct 26.1 L MCV MCH MCHC RDW 18.1 H Plt Count Lymph % (Auto) Brown % (Auto) Lymph # Brown # Baso # Seg Neutrophils % Seg Neuts % (Manual) Lymphocytes % (Manual) Monocytes % (Manual) Eosinophils % (Manual) Basophils % (Manual) Nucleated RBC % Seg Neutrophils # Seg Neutrophils # Man Lymphocytes # (Manual) Monocytes # (Manual) Eosinophils # (Manual) Basophils # (Manual) PT INR Fibrinogen dRVVT Confirm Interp Factor V Activity POC ABG pH POC ABG pCO2 POC ABG pO2 ABG pO2 ABG HCO3 ABG Base Excess ABG Hemoglobin Oxyhemoglobin Sodium Potassium Chloride 95.8 L Carbon Dioxide BUN 82 H Creatinine 2.6 H Glucose 152 H POC Glucose 166 H Lactic Acid Calcium Phosphorus Magnesium Direct Bilirubin AST ALT Alkaline Phosphatase Lactate Dehydrogenase Troponin T C-Reactive Protein Total Protein Albumin Prealbumin Triglycerides Cholesterol LDL Cholesterol Direct HDL Cholesterol PTH Intact Urine pH Urine WBC (Auto) Urine Creatinine Urine Total Protein Fluid Total Protein Vancomycin Trough Rheumatoid Factor Complement C4 Miscellaneous Test Crossmatch 10/14/16 10/14/16 10/14/16 05:38 06:35 08:10 WBC 20.7 H RBC 2.81 L Hgb 8.4 L Hct 27.2 L MCV MCH MCHC RDW 19.4 H Plt Count Lymph % (Auto) Brown % (Auto) Lymph # Brown # Baso # Seg Neutrophils % Seg Neuts % (Manual) Lymphocytes % (Manual) Monocytes % (Manual) Eosinophils % (Manual) Basophils % (Manual) Nucleated RBC % Seg Neutrophils # Seg Neutrophils # Man Lymphocytes # (Manual) Monocytes # (Manual) Eosinophils # (Manual) Basophils # (Manual) PT INR Fibrinogen dRVVT Confirm Interp Factor V Activity POC ABG pH POC ABG pCO2 POC ABG pO2 ABG pO2 ABG HCO3 ABG Base Excess ABG Hemoglobin Oxyhemoglobin Sodium Potassium Chloride Carbon Dioxide BUN 58 H Creatinine 1.9 H Glucose 169 H POC Glucose 195 H Lactic Acid Calcium Phosphorus Magnesium Direct Bilirubin AST ALT Alkaline Phosphatase Lactate Dehydrogenase Troponin T C-Reactive Protein Total Protein Albumin Prealbumin Triglycerides Cholesterol LDL Cholesterol Direct HDL Cholesterol PTH Intact Urine pH Urine WBC (Auto) Urine Creatinine Urine Total Protein Fluid Total Protein Vancomycin Trough Rheumatoid Factor Complement C4 Miscellaneous Test Crossmatch 10/14/16 10/14/16 10/14/16 11:44 17:13 23:28 WBC RBC Hgb Hct MCV MCH MCHC RDW Plt Count Lymph % (Auto) Brown % (Auto) Lymph # Brown # Baso # Seg Neutrophils % Seg Neuts % (Manual) Lymphocytes % (Manual) Monocytes % (Manual) Eosinophils % (Manual) Basophils % (Manual) Nucleated RBC % Seg Neutrophils # Seg Neutrophils # Man Lymphocytes # (Manual) Monocytes # (Manual) Eosinophils # (Manual) Basophils # (Manual) PT INR Fibrinogen dRVVT Confirm Interp Factor V Activity POC ABG pH POC ABG pCO2 POC ABG pO2 ABG pO2 ABG HCO3 ABG Base Excess ABG Hemoglobin Oxyhemoglobin Sodium Potassium Chloride Carbon Dioxide BUN Creatinine Glucose POC Glucose 174 H 121 H 151 H Lactic Acid Calcium Phosphorus Magnesium Direct Bilirubin AST ALT Alkaline Phosphatase Lactate Dehydrogenase Troponin T C-Reactive Protein Total Protein Albumin Prealbumin Triglycerides Cholesterol LDL Cholesterol Direct HDL Cholesterol PTH Intact Urine pH Urine WBC (Auto) Urine Creatinine Urine Total Protein Fluid Total Protein Vancomycin Trough Rheumatoid Factor Complement C4 Miscellaneous Test Crossmatch 10/15/16 10/15/16 10/15/16 05:06 12:26 17:48 WBC RBC Hgb Hct MCV MCH MCHC RDW Plt Count Lymph % (Auto) Brown % (Auto) Lymph # Brown # Baso # Seg Neutrophils % Seg Neuts % (Manual) Lymphocytes % (Manual) Monocytes % (Manual) Eosinophils % (Manual) Basophils % (Manual) Nucleated RBC % Seg Neutrophils # Seg Neutrophils # Man Lymphocytes # (Manual) Monocytes # (Manual) Eosinophils # (Manual) Basophils # (Manual) PT INR Fibrinogen dRVVT Confirm Interp Factor V Activity POC ABG pH POC ABG pCO2 POC ABG pO2 ABG pO2 ABG HCO3 ABG Base Excess ABG Hemoglobin Oxyhemoglobin Sodium Potassium Chloride Carbon Dioxide BUN Creatinine Glucose POC Glucose 151 H 149 H 153 H Lactic Acid Calcium Phosphorus Magnesium Direct Bilirubin AST ALT Alkaline Phosphatase Lactate Dehydrogenase Troponin T C-Reactive Protein Total Protein Albumin Prealbumin Triglycerides Cholesterol LDL Cholesterol Direct HDL Cholesterol PTH Intact Urine pH Urine WBC (Auto) Urine Creatinine Urine Total Protein Fluid Total Protein Vancomycin Trough Rheumatoid Factor Complement C4 Miscellaneous Test Crossmatch 10/15/16 10/15/16 10/16/16 Unknown Unknown 00:02 WBC 23.4 H RBC 2.78 L Hgb 8.5 L Hct 25.7 L MCV MCH MCHC RDW 18.7 H Plt Count Lymph % (Auto) Brown % (Auto) Lymph # Brown # Baso # Seg Neutrophils % Seg Neuts % (Manual) Lymphocytes % (Manual) Monocytes % (Manual) Eosinophils % (Manual) Basophils % (Manual) Nucleated RBC % Seg Neutrophils # Seg Neutrophils # Man Lymphocytes # (Manual) Monocytes # (Manual) Eosinophils # (Manual) Basophils # (Manual) PT INR Fibrinogen dRVVT Confirm Interp Factor V Activity POC ABG pH POC ABG pCO2 POC ABG pO2 ABG pO2 ABG HCO3 ABG Base Excess ABG Hemoglobin Oxyhemoglobin Sodium Potassium Chloride Carbon Dioxide BUN 73 H Creatinine 2.3 H Glucose 120 H POC Glucose 137 H Lactic Acid Calcium Phosphorus Magnesium Direct Bilirubin AST ALT Alkaline Phosphatase Lactate Dehydrogenase Troponin T C-Reactive Protein Total Protein Albumin Prealbumin Triglycerides Cholesterol LDL Cholesterol Direct HDL Cholesterol PTH Intact Urine pH Urine WBC (Auto) Urine Creatinine Urine Total Protein Fluid Total Protein Vancomycin Trough Rheumatoid Factor Complement C4 Miscellaneous Test Crossmatch 10/16/16 10/16/16 10/16/16 05:44 06:25 06:25 WBC 22.5 H RBC 2.76 L Hgb 8.3 L Hct 25.2 L MCV MCH MCHC RDW 18.3 H Plt Count Lymph % (Auto) Brown % (Auto) Lymph # Brown # Baso # Seg Neutrophils % Seg Neuts % (Manual) Lymphocytes % (Manual) Monocytes % (Manual) Eosinophils % (Manual) Basophils % (Manual) Nucleated RBC % Seg Neutrophils # Seg Neutrophils # Man Lymphocytes # (Manual) Monocytes # (Manual) Eosinophils # (Manual) Basophils # (Manual) PT INR Fibrinogen dRVVT Confirm Interp Factor V Activity POC ABG pH POC ABG pCO2 POC ABG pO2 ABG pO2 ABG HCO3 ABG Base Excess ABG Hemoglobin Oxyhemoglobin Sodium Potassium Chloride Carbon Dioxide BUN 92 H Creatinine 3.0 H Glucose 138 H POC Glucose 110 H Lactic Acid Calcium Phosphorus Magnesium Direct Bilirubin AST ALT Alkaline Phosphatase Lactate Dehydrogenase Troponin T C-Reactive Protein Total Protein Albumin Prealbumin Triglycerides Cholesterol LDL Cholesterol Direct HDL Cholesterol PTH Intact Urine pH Urine WBC (Auto) Urine Creatinine Urine Total Protein Fluid Total Protein Vancomycin Trough Rheumatoid Factor Complement C4 Miscellaneous Test Crossmatch 10/16/16 10/16/16 10/16/16 11:27 11:48 17:36 WBC RBC Hgb Hct MCV MCH MCHC RDW Plt Count Lymph % (Auto) Brown % (Auto) Lymph # Brown # Baso # Seg Neutrophils % Seg Neuts % (Manual) Lymphocytes % (Manual) Monocytes % (Manual) Eosinophils % (Manual) Basophils % (Manual) Nucleated RBC % Seg Neutrophils # Seg Neutrophils # Man Lymphocytes # (Manual) Monocytes # (Manual) Eosinophils # (Manual) Basophils # (Manual) PT INR Fibrinogen dRVVT Confirm Interp Factor V Activity POC ABG pH 7.582 H POC ABG pCO2 27.4 L POC ABG pO2 110 H ABG pO2 ABG HCO3 ABG Base Excess ABG Hemoglobin Oxyhemoglobin Sodium Potassium Chloride Carbon Dioxide BUN Creatinine Glucose POC Glucose 121 H 133 H Lactic Acid Calcium Phosphorus Magnesium Direct Bilirubin AST ALT Alkaline Phosphatase Lactate Dehydrogenase Troponin T C-Reactive Protein Total Protein Albumin Prealbumin Triglycerides Cholesterol LDL Cholesterol Direct HDL Cholesterol PTH Intact Urine pH Urine WBC (Auto) Urine Creatinine Urine Total Protein Fluid Total Protein Vancomycin Trough Rheumatoid Factor Complement C4 Miscellaneous Test Crossmatch 10/16/16 10/17/16 10/17/16 20:48 04:24 04:24 WBC 21.4 H RBC 2.72 L Hgb 8.0 L Hct 25.2 L MCV MCH MCHC RDW 18.0 H Plt Count Lymph % (Auto) Brown % (Auto) Lymph # Brown # Baso # Seg Neutrophils % Seg Neuts % (Manual) Lymphocytes % (Manual) Monocytes % (Manual) Eosinophils % (Manual) Basophils % (Manual) Nucleated RBC % Seg Neutrophils # Seg Neutrophils # Man Lymphocytes # (Manual) Monocytes # (Manual) Eosinophils # (Manual) Basophils # (Manual) PT INR Fibrinogen dRVVT Confirm Interp Factor V Activity POC ABG pH 7.561 H POC ABG pCO2 24.4 L POC ABG pO2 77 L ABG pO2 ABG HCO3 ABG Base Excess ABG Hemoglobin Oxyhemoglobin Sodium 148 H Potassium Chloride Carbon Dioxide BUN 104 H Creatinine 3.0 H Glucose 149 H POC Glucose Lactic Acid Calcium Phosphorus Magnesium Direct Bilirubin AST ALT Alkaline Phosphatase 138 H Lactate Dehydrogenase Troponin T C-Reactive Protein Total Protein 6.2 L Albumin 1.5 L Prealbumin Triglycerides Cholesterol LDL Cholesterol Direct HDL Cholesterol PTH Intact Urine pH Urine WBC (Auto) Urine Creatinine Urine Total Protein Fluid Total Protein Vancomycin Trough Rheumatoid Factor Complement C4 Miscellaneous Test Crossmatch 10/17/16 10/17/16 10/17/16 06:02 12:17 17:14 WBC RBC Hgb Hct MCV MCH MCHC RDW Plt Count Lymph % (Auto) Brown % (Auto) Lymph # Brown # Baso # Seg Neutrophils % Seg Neuts % (Manual) Lymphocytes % (Manual) Monocytes % (Manual) Eosinophils % (Manual) Basophils % (Manual) Nucleated RBC % Seg Neutrophils # Seg Neutrophils # Man Lymphocytes # (Manual) Monocytes # (Manual) Eosinophils # (Manual) Basophils # (Manual) PT INR Fibrinogen dRVVT Confirm Interp Factor V Activity POC ABG pH POC ABG pCO2 POC ABG pO2 ABG pO2 ABG HCO3 ABG Base Excess ABG Hemoglobin Oxyhemoglobin Sodium Potassium Chloride Carbon Dioxide BUN Creatinine Glucose POC Glucose 170 H 167 H 126 H Lactic Acid Calcium Phosphorus Magnesium Direct Bilirubin AST ALT Alkaline Phosphatase Lactate Dehydrogenase Troponin T C-Reactive Protein Total Protein Albumin Prealbumin Triglycerides Cholesterol LDL Cholesterol Direct HDL Cholesterol PTH Intact Urine pH Urine WBC (Auto) Urine Creatinine Urine Total Protein Fluid Total Protein Vancomycin Trough Rheumatoid Factor Complement C4 Miscellaneous Test Crossmatch 10/17/16 10/18/16 10/18/16 23:17 04:00 04:00 WBC 20.7 H RBC 2.47 L Hgb 7.4 L Hct 22.9 L MCV MCH MCHC RDW 17.5 H Plt Count Lymph % (Auto) Brown % (Auto) Lymph # Brown # Baso # Seg Neutrophils % Seg Neuts % (Manual) Lymphocytes % (Manual) Monocytes % (Manual) Eosinophils % (Manual) Basophils % (Manual) Nucleated RBC % Seg Neutrophils # Seg Neutrophils # Man Lymphocytes # (Manual) Monocytes # (Manual) Eosinophils # (Manual) Basophils # (Manual) PT INR Fibrinogen dRVVT Confirm Interp Factor V Activity POC ABG pH POC ABG pCO2 POC ABG pO2 ABG pO2 ABG HCO3 ABG Base Excess ABG Hemoglobin Oxyhemoglobin Sodium 149 H Potassium Chloride 107.9 H Carbon Dioxide 20 L BUN 117 H Creatinine 3.2 H Glucose 119 H POC Glucose 121 H Lactic Acid Calcium Phosphorus Magnesium Direct Bilirubin AST ALT Alkaline Phosphatase Lactate Dehydrogenase Troponin T C-Reactive Protein Total Protein Albumin Prealbumin Triglycerides Cholesterol LDL Cholesterol Direct HDL Cholesterol PTH Intact Urine pH Urine WBC (Auto) Urine Creatinine Urine Total Protein Fluid Total Protein Vancomycin Trough Rheumatoid Factor Complement C4 Miscellaneous Test Crossmatch 10/18/16 10/18/16 10/18/16 05:23 10:46 17:30 WBC RBC Hgb Hct MCV MCH MCHC RDW Plt Count Lymph % (Auto) Brown % (Auto) Lymph # Brown # Baso # Seg Neutrophils % Seg Neuts % (Manual) Lymphocytes % (Manual) Monocytes % (Manual) Eosinophils % (Manual) Basophils % (Manual) Nucleated RBC % Seg Neutrophils # Seg Neutrophils # Man Lymphocytes # (Manual) Monocytes # (Manual) Eosinophils # (Manual) Basophils # (Manual) PT INR Fibrinogen dRVVT Confirm Interp Factor V Activity POC ABG pH POC ABG pCO2 POC ABG pO2 ABG pO2 ABG HCO3 ABG Base Excess ABG Hemoglobin Oxyhemoglobin Sodium Potassium Chloride Carbon Dioxide BUN Creatinine Glucose POC Glucose 119 H 155 H 124 H Lactic Acid Calcium Phosphorus Magnesium Direct Bilirubin AST ALT Alkaline Phosphatase Lactate Dehydrogenase Troponin T C-Reactive Protein Total Protein Albumin Prealbumin Triglycerides Cholesterol LDL Cholesterol Direct HDL Cholesterol PTH Intact Urine pH Urine WBC (Auto) Urine Creatinine Urine Total Protein Fluid Total Protein Vancomycin Trough Rheumatoid Factor Complement C4 Miscellaneous Test Crossmatch 10/19/16 10/19/16 10/19/16 04:00 04:00 05:25 WBC 17.4 H RBC 2.54 L Hgb 7.7 L Hct 23.6 L MCV MCH MCHC RDW 17.3 H Plt Count Lymph % (Auto) Brown % (Auto) Lymph # Brown # Baso # Seg Neutrophils % Seg Neuts % (Manual) Lymphocytes % (Manual) Monocytes % (Manual) Eosinophils % (Manual) Basophils % (Manual) Nucleated RBC % Seg Neutrophils # Seg Neutrophils # Man Lymphocytes # (Manual) Monocytes # (Manual) Eosinophils # (Manual) Basophils # (Manual) PT INR Fibrinogen dRVVT Confirm Interp Factor V Activity POC ABG pH POC ABG pCO2 POC ABG pO2 ABG pO2 ABG HCO3 ABG Base Excess ABG Hemoglobin Oxyhemoglobin Sodium Potassium Chloride Carbon Dioxide BUN 72 H Creatinine 2.1 H Glucose 116 H POC Glucose 119 H Lactic Acid Calcium Phosphorus Magnesium Direct Bilirubin AST ALT Alkaline Phosphatase Lactate Dehydrogenase Troponin T C-Reactive Protein Total Protein Albumin Prealbumin Triglycerides Cholesterol LDL Cholesterol Direct HDL Cholesterol PTH Intact Urine pH Urine WBC (Auto) Urine Creatinine Urine Total Protein Fluid Total Protein Vancomycin Trough Rheumatoid Factor Complement C4 Miscellaneous Test Crossmatch 10/19/16 10/19/16 10/20/16 11:46 23:59 06:00 WBC RBC Hgb Hct MCV MCH MCHC RDW Plt Count Lymph % (Auto) Brown % (Auto) Lymph # Brown # Baso # Seg Neutrophils % Seg Neuts % (Manual) Lymphocytes % (Manual) Monocytes % (Manual) Eosinophils % (Manual) Basophils % (Manual) Nucleated RBC % Seg Neutrophils # Seg Neutrophils # Man Lymphocytes # (Manual) Monocytes # (Manual) Eosinophils # (Manual) Basophils # (Manual) PT INR Fibrinogen dRVVT Confirm Interp Factor V Activity POC ABG pH POC ABG pCO2 POC ABG pO2 ABG pO2 ABG HCO3 ABG Base Excess ABG Hemoglobin Oxyhemoglobin Sodium Potassium Chloride Carbon Dioxide 17 L BUN 94 H Creatinine 2.7 H Glucose POC Glucose 116 H 117 H Lactic Acid Calcium Phosphorus Magnesium Direct Bilirubin AST ALT Alkaline Phosphatase Lactate Dehydrogenase Troponin T C-Reactive Protein Total Protein Albumin Prealbumin Triglycerides Cholesterol LDL Cholesterol Direct HDL Cholesterol PTH Intact Urine pH Urine WBC (Auto) Urine Creatinine Urine Total Protein Fluid Total Protein Vancomycin Trough Rheumatoid Factor Complement C4 Miscellaneous Test Crossmatch 10/20/16 10/20/16 10/20/16 06:00 11:49 16:00 WBC 19.7 H RBC 2.51 L Hgb 7.7 L Hct 23.5 L MCV MCH MCHC RDW 17.5 H Plt Count Lymph % (Auto) Brown % (Auto) Lymph # Brown # Baso # Seg Neutrophils % Seg Neuts % (Manual) Lymphocytes % (Manual) Monocytes % (Manual) Eosinophils % (Manual) Basophils % (Manual) Nucleated RBC % Seg Neutrophils # Seg Neutrophils # Man Lymphocytes # (Manual) Monocytes # (Manual) Eosinophils # (Manual) Basophils # (Manual) PT INR Fibrinogen dRVVT Confirm Interp Factor V Activity POC ABG pH POC ABG pCO2 POC ABG pO2 ABG pO2 ABG HCO3 ABG Base Excess ABG Hemoglobin Oxyhemoglobin Sodium Potassium Chloride Carbon Dioxide BUN Creatinine Glucose POC Glucose 117 H Lactic Acid Calcium Phosphorus Magnesium Direct Bilirubin AST ALT Alkaline Phosphatase Lactate Dehydrogenase Troponin T C-Reactive Protein Total Protein Albumin Prealbumin Triglycerides Cholesterol LDL Cholesterol Direct HDL Cholesterol PTH Intact Urine pH Urine WBC (Auto) Urine Creatinine Urine Total Protein Fluid Total Protein Vancomycin Trough Rheumatoid Factor Complement C4 Miscellaneous Test Flexitest 1 H Crossmatch 10/20/16 10/20/16 10/21/16 18:36 23:39 04:00 WBC RBC Hgb Hct MCV MCH MCHC RDW Plt Count Lymph % (Auto) Brown % (Auto) Lymph # Brown # Baso # Seg Neutrophils % Seg Neuts % (Manual) Lymphocytes % (Manual) Monocytes % (Manual) Eosinophils % (Manual) Basophils % (Manual) Nucleated RBC % Seg Neutrophils # Seg Neutrophils # Man Lymphocytes # (Manual) Monocytes # (Manual) Eosinophils # (Manual) Basophils # (Manual) PT INR Fibrinogen dRVVT Confirm Interp Factor V Activity POC ABG pH POC ABG pCO2 POC ABG pO2 ABG pO2 ABG HCO3 ABG Base Excess ABG Hemoglobin Oxyhemoglobin Sodium Potassium 5.4 H D Chloride Carbon Dioxide 15 L BUN 110 H Creatinine 3.0 H Glucose POC Glucose 127 H 114 H Lactic Acid Calcium Phosphorus Magnesium Direct Bilirubin AST ALT Alkaline Phosphatase Lactate Dehydrogenase Troponin T C-Reactive Protein Total Protein Albumin Prealbumin Triglycerides Cholesterol LDL Cholesterol Direct HDL Cholesterol PTH Intact Urine pH Urine WBC (Auto) Urine Creatinine Urine Total Protein Fluid Total Protein Vancomycin Trough Rheumatoid Factor Complement C4 Miscellaneous Test Crossmatch 10/21/16 10/21/16 10/22/16 05:54 23:46 05:18 WBC RBC Hgb Hct MCV MCH MCHC RDW Plt Count Lymph % (Auto) Brown % (Auto) Lymph # Brown # Baso # Seg Neutrophils % Seg Neuts % (Manual) Lymphocytes % (Manual) Monocytes % (Manual) Eosinophils % (Manual) Basophils % (Manual) Nucleated RBC % Seg Neutrophils # Seg Neutrophils # Man Lymphocytes # (Manual) Monocytes # (Manual) Eosinophils # (Manual) Basophils # (Manual) PT INR Fibrinogen dRVVT Confirm Interp Factor V Activity POC ABG pH POC ABG pCO2 POC ABG pO2 ABG pO2 ABG HCO3 ABG Base Excess ABG Hemoglobin Oxyhemoglobin Sodium Potassium Chloride Carbon Dioxide BUN Creatinine Glucose POC Glucose 119 H 108 H 109 H Lactic Acid Calcium Phosphorus Magnesium Direct Bilirubin AST ALT Alkaline Phosphatase Lactate Dehydrogenase Troponin T C-Reactive Protein Total Protein Albumin Prealbumin Triglycerides Cholesterol LDL Cholesterol Direct HDL Cholesterol PTH Intact Urine pH Urine WBC (Auto) Urine Creatinine Urine Total Protein Fluid Total Protein Vancomycin Trough Rheumatoid Factor Complement C4 Miscellaneous Test Crossmatch 10/22/16 10/22/16 10/22/16 06:40 06:40 06:40 WBC 14.0 H RBC 2.03 L Hgb 7.0 L Hct 20.5 L MCV 98 H MCH 34 H MCHC 35 H RDW 17.8 H Plt Count Lymph % (Auto) Brown % (Auto) 9.9 H Lymph # Brown # 1.4 H Baso # 0.2 H Seg Neutrophils % 72.0 H Seg Neuts % (Manual) Lymphocytes % (Manual) Monocytes % (Manual) Eosinophils % (Manual) Basophils % (Manual) Nucleated RBC % Seg Neutrophils # 10.0 H Seg Neutrophils # Man Lymphocytes # (Manual) Monocytes # (Manual) Eosinophils # (Manual) Basophils # (Manual) PT INR Fibrinogen dRVVT Confirm Interp Factor V Activity POC ABG pH POC ABG pCO2 POC ABG pO2 ABG pO2 ABG HCO3 ABG Base Excess ABG Hemoglobin Oxyhemoglobin Sodium 130 L D Potassium Chloride 92.4 L Carbon Dioxide 20 L BUN 50 H Creatinine 1.6 H Glucose 589 H* POC Glucose Lactic Acid Calcium 7.8 L D Phosphorus Magnesium 1.60 L Direct Bilirubin AST ALT Alkaline Phosphatase Lactate Dehydrogenase Troponin T C-Reactive Protein Total Protein Albumin Prealbumin Triglycerides Cholesterol LDL Cholesterol Direct HDL Cholesterol PTH Intact Urine pH Urine WBC (Auto) Urine Creatinine Urine Total Protein Fluid Total Protein Vancomycin Trough Rheumatoid Factor Complement C4 Miscellaneous Test Crossmatch 10/22/16 10/22/16 10/22/16 11:39 16:44 23:36 WBC RBC Hgb Hct MCV MCH MCHC RDW Plt Count Lymph % (Auto) Brown % (Auto) Lymph # Brown # Baso # Seg Neutrophils % Seg Neuts % (Manual) Lymphocytes % (Manual) Monocytes % (Manual) Eosinophils % (Manual) Basophils % (Manual) Nucleated RBC % Seg Neutrophils # Seg Neutrophils # Man Lymphocytes # (Manual) Monocytes # (Manual) Eosinophils # (Manual) Basophils # (Manual) PT INR Fibrinogen dRVVT Confirm Interp Factor V Activity POC ABG pH POC ABG pCO2 POC ABG pO2 ABG pO2 ABG HCO3 ABG Base Excess ABG Hemoglobin Oxyhemoglobin Sodium Potassium Chloride Carbon Dioxide BUN Creatinine Glucose POC Glucose 142 H 163 H 123 H Lactic Acid Calcium Phosphorus Magnesium Direct Bilirubin AST ALT Alkaline Phosphatase Lactate Dehydrogenase Troponin T C-Reactive Protein Total Protein Albumin Prealbumin Triglycerides Cholesterol LDL Cholesterol Direct HDL Cholesterol PTH Intact Urine pH Urine WBC (Auto) Urine Creatinine Urine Total Protein Fluid Total Protein Vancomycin Trough Rheumatoid Factor Complement C4 Miscellaneous Test Crossmatch 10/23/16 10/23/16 10/23/16 04:58 06:00 12:12 WBC RBC Hgb Hct MCV MCH MCHC RDW Plt Count Lymph % (Auto) Brown % (Auto) Lymph # Brown # Baso # Seg Neutrophils % Seg Neuts % (Manual) Lymphocytes % (Manual) Monocytes % (Manual) Eosinophils % (Manual) Basophils % (Manual) Nucleated RBC % Seg Neutrophils # Seg Neutrophils # Man Lymphocytes # (Manual) Monocytes # (Manual) Eosinophils # (Manual) Basophils # (Manual) PT INR Fibrinogen dRVVT Confirm Interp Factor V Activity POC ABG pH POC ABG pCO2 POC ABG pO2 ABG pO2 ABG HCO3 ABG Base Excess ABG Hemoglobin Oxyhemoglobin Sodium 133 L Potassium 3.5 L Chloride 96.1 L Carbon Dioxide 18 L BUN 76 H Creatinine 2.1 H Glucose POC Glucose 133 H 138 H Lactic Acid Calcium 8.3 L Phosphorus Magnesium Direct Bilirubin AST ALT Alkaline Phosphatase Lactate Dehydrogenase Troponin T C-Reactive Protein Total Protein Albumin Prealbumin Triglycerides Cholesterol LDL Cholesterol Direct HDL Cholesterol PTH Intact Urine pH Urine WBC (Auto) Urine Creatinine Urine Total Protein Fluid Total Protein Vancomycin Trough Rheumatoid Factor Complement C4 Miscellaneous Test Crossmatch 10/23/16 10/23/16 10/24/16 16:53 23:37 04:00 WBC RBC Hgb Hct MCV MCH MCHC RDW Plt Count Lymph % (Auto) Brown % (Auto) Lymph # Brown # Baso # Seg Neutrophils % Seg Neuts % (Manual) Lymphocytes % (Manual) Monocytes % (Manual) Eosinophils % (Manual) Basophils % (Manual) Nucleated RBC % Seg Neutrophils # Seg Neutrophils # Man Lymphocytes # (Manual) Monocytes # (Manual) Eosinophils # (Manual) Basophils # (Manual) PT INR Fibrinogen dRVVT Confirm Interp Factor V Activity POC ABG pH POC ABG pCO2 POC ABG pO2 ABG pO2 ABG HCO3 ABG Base Excess ABG Hemoglobin Oxyhemoglobin Sodium 131 L Potassium Chloride 94.5 L Carbon Dioxide 19 L BUN 97 H Creatinine 2.6 H Glucose 110 H POC Glucose 125 H 123 H Lactic Acid Calcium 8.3 L Phosphorus Magnesium Direct Bilirubin AST ALT Alkaline Phosphatase Lactate Dehydrogenase Troponin T C-Reactive Protein Total Protein Albumin Prealbumin Triglycerides Cholesterol LDL Cholesterol Direct HDL Cholesterol PTH Intact Urine pH Urine WBC (Auto) Urine Creatinine Urine Total Protein Fluid Total Protein Vancomycin Trough Rheumatoid Factor Complement C4 Miscellaneous Test Crossmatch 10/24/16 10/24/16 10/24/16 07:49 11:39 17:52 WBC RBC Hgb 6.0 L Hct 19.7 L* MCV MCH MCHC RDW Plt Count Lymph % (Auto) Brown % (Auto) Lymph # Brown # Baso # Seg Neutrophils % Seg Neuts % (Manual) Lymphocytes % (Manual) Monocytes % (Manual) Eosinophils % (Manual) Basophils % (Manual) Nucleated RBC % Seg Neutrophils # Seg Neutrophils # Man Lymphocytes # (Manual) Monocytes # (Manual) Eosinophils # (Manual) Basophils # (Manual) PT INR Fibrinogen dRVVT Confirm Interp Factor V Activity POC ABG pH POC ABG pCO2 POC ABG pO2 ABG pO2 ABG HCO3 ABG Base Excess ABG Hemoglobin Oxyhemoglobin Sodium Potassium Chloride Carbon Dioxide BUN Creatinine Glucose POC Glucose 106 H 158 H Lactic Acid Calcium Phosphorus Magnesium Direct Bilirubin AST ALT Alkaline Phosphatase Lactate Dehydrogenase Troponin T C-Reactive Protein Total Protein Albumin Prealbumin Triglycerides Cholesterol LDL Cholesterol Direct HDL Cholesterol PTH Intact Urine pH Urine WBC (Auto) Urine Creatinine Urine Total Protein Fluid Total Protein Vancomycin Trough Rheumatoid Factor Complement C4 Miscellaneous Test Crossmatch 10/24/16 10/24/16 10/24/16 20:00 22:27 Unknown WBC RBC Hgb 9.4 L D Hct 27.5 L D MCV MCH MCHC RDW Plt Count Lymph % (Auto) Brown % (Auto) Lymph # Brown # Baso # Seg Neutrophils % Seg Neuts % (Manual) Lymphocytes % (Manual) Monocytes % (Manual) Eosinophils % (Manual) Basophils % (Manual) Nucleated RBC % Seg Neutrophils # Seg Neutrophils # Man Lymphocytes # (Manual) Monocytes # (Manual) Eosinophils # (Manual) Basophils # (Manual) PT INR Fibrinogen dRVVT Confirm Interp Factor V Activity POC ABG pH POC ABG pCO2 POC ABG pO2 ABG pO2 ABG HCO3 ABG Base Excess ABG Hemoglobin Oxyhemoglobin Sodium Potassium Chloride Carbon Dioxide BUN Creatinine Glucose POC Glucose 125 H Lactic Acid Calcium Phosphorus Magnesium Direct Bilirubin AST ALT Alkaline Phosphatase Lactate Dehydrogenase Troponin T C-Reactive Protein Total Protein Albumin Prealbumin Triglycerides Cholesterol LDL Cholesterol Direct HDL Cholesterol PTH Intact Urine pH Urine WBC (Auto) Urine Creatinine Urine Total Protein Fluid Total Protein Vancomycin Trough Rheumatoid Factor Complement C4 Miscellaneous Test Crossmatch See Detail 10/25/16 10/25/16 10/25/16 04:00 04:00 04:00 WBC 14.2 H RBC 2.98 L Hgb 9.0 L Hct 26.2 L MCV MCH MCHC RDW 16.6 H Plt Count Lymph % (Auto) Brown % (Auto) 10.7 H Lymph # Brown # 1.5 H Baso # Seg Neutrophils % 73.6 H Seg Neuts % (Manual) Lymphocytes % (Manual) Monocytes % (Manual) Eosinophils % (Manual) Basophils % (Manual) Nucleated RBC % Seg Neutrophils # 10.5 H Seg Neutrophils # Man Lymphocytes # (Manual) Monocytes # (Manual) Eosinophils # (Manual) Basophils # (Manual) PT INR Fibrinogen dRVVT Confirm Interp Factor V Activity POC ABG pH POC ABG pCO2 POC ABG pO2 ABG pO2 ABG HCO3 ABG Base Excess ABG Hemoglobin Oxyhemoglobin Sodium 132 L Potassium Chloride 94.7 L Carbon Dioxide BUN 51 H Creatinine 1.6 H Glucose 130 H POC Glucose Lactic Acid Calcium 8.3 L Phosphorus 1.60 L D Magnesium Direct Bilirubin AST ALT Alkaline Phosphatase Lactate Dehydrogenase Troponin T C-Reactive Protein Total Protein Albumin Prealbumin Triglycerides Cholesterol LDL Cholesterol Direct HDL Cholesterol PTH Intact Urine pH Urine WBC (Auto) Urine Creatinine Urine Total Protein Fluid Total Protein Vancomycin Trough Rheumatoid Factor Complement C4 Miscellaneous Test Crossmatch 10/25/16 10/25/16 10/25/16 04:32 11:48 17:22 WBC RBC Hgb Hct MCV MCH MCHC RDW Plt Count Lymph % (Auto) Brown % (Auto) Lymph # Brown # Baso # Seg Neutrophils % Seg Neuts % (Manual) Lymphocytes % (Manual) Monocytes % (Manual) Eosinophils % (Manual) Basophils % (Manual) Nucleated RBC % Seg Neutrophils # Seg Neutrophils # Man Lymphocytes # (Manual) Monocytes # (Manual) Eosinophils # (Manual) Basophils # (Manual) PT INR Fibrinogen dRVVT Confirm Interp Factor V Activity POC ABG pH POC ABG pCO2 POC ABG pO2 ABG pO2 ABG HCO3 ABG Base Excess ABG Hemoglobin Oxyhemoglobin Sodium Potassium Chloride Carbon Dioxide BUN Creatinine Glucose POC Glucose 124 H 171 H 120 H Lactic Acid Calcium Phosphorus Magnesium Direct Bilirubin AST ALT Alkaline Phosphatase Lactate Dehydrogenase Troponin T C-Reactive Protein Total Protein Albumin Prealbumin Triglycerides Cholesterol LDL Cholesterol Direct HDL Cholesterol PTH Intact Urine pH Urine WBC (Auto) Urine Creatinine Urine Total Protein Fluid Total Protein Vancomycin Trough Rheumatoid Factor Complement C4 Miscellaneous Test Crossmatch 10/26/16 10/26/16 10/26/16 04:54 07:06 07:06 WBC 16.9 H RBC 3.06 L Hgb 9.1 L Hct 26.9 L MCV MCH MCHC RDW 16.9 H Plt Count Lymph % (Auto) Brown % (Auto) Lymph # Brown # Baso # Seg Neutrophils % Seg Neuts % (Manual) 71.0 H Lymphocytes % (Manual) 5.0 L Monocytes % (Manual) 12.0 H Eosinophils % (Manual) Basophils % (Manual) Nucleated RBC % Seg Neutrophils # Seg Neutrophils # Man 12.0 H Lymphocytes # (Manual) 0.8 L Monocytes # (Manual) 2.0 H Eosinophils # (Manual) Basophils # (Manual) PT INR Fibrinogen dRVVT Confirm Interp Factor V Activity POC ABG pH POC ABG pCO2 POC ABG pO2 ABG pO2 ABG HCO3 ABG Base Excess ABG Hemoglobin Oxyhemoglobin Sodium 135 L Potassium Chloride 97.1 L Carbon Dioxide BUN 73 H Creatinine 2.2 H Glucose 117 H POC Glucose 123 H Lactic Acid Calcium Phosphorus 1.70 L Magnesium Direct Bilirubin AST ALT Alkaline Phosphatase Lactate Dehydrogenase Troponin T C-Reactive Protein Total Protein Albumin Prealbumin Triglycerides Cholesterol LDL Cholesterol Direct HDL Cholesterol PTH Intact Urine pH Urine WBC (Auto) Urine Creatinine Urine Total Protein Fluid Total Protein Vancomycin Trough Rheumatoid Factor Complement C4 Miscellaneous Test Crossmatch 10/26/16 10/26/16 10/26/16 12:12 17:29 23:42 WBC RBC Hgb Hct MCV MCH MCHC RDW Plt Count Lymph % (Auto) Brown % (Auto) Lymph # Brown # Baso # Seg Neutrophils % Seg Neuts % (Manual) Lymphocytes % (Manual) Monocytes % (Manual) Eosinophils % (Manual) Basophils % (Manual) Nucleated RBC % Seg Neutrophils # Seg Neutrophils # Man Lymphocytes # (Manual) Monocytes # (Manual) Eosinophils # (Manual) Basophils # (Manual) PT INR Fibrinogen dRVVT Confirm Interp Factor V Activity POC ABG pH POC ABG pCO2 POC ABG pO2 ABG pO2 ABG HCO3 ABG Base Excess ABG Hemoglobin Oxyhemoglobin Sodium Potassium Chloride Carbon Dioxide BUN Creatinine Glucose POC Glucose 126 H 161 H 118 H Lactic Acid Calcium Phosphorus Magnesium Direct Bilirubin AST ALT Alkaline Phosphatase Lactate Dehydrogenase Troponin T C-Reactive Protein Total Protein Albumin Prealbumin Triglycerides Cholesterol LDL Cholesterol Direct HDL Cholesterol PTH Intact Urine pH Urine WBC (Auto) Urine Creatinine Urine Total Protein Fluid Total Protein Vancomycin Trough Rheumatoid Factor Complement C4 Miscellaneous Test Crossmatch 10/27/16 10/27/16 10/27/16 05:03 06:30 06:30 WBC 13.9 H RBC 3.09 L Hgb 9.2 L Hct 27.5 L MCV MCH MCHC RDW 17.0 H Plt Count Lymph % (Auto) Brown % (Auto) Lymph # Brown # Baso # Seg Neutrophils % Seg Neuts % (Manual) 78.0 H Lymphocytes % (Manual) Monocytes % (Manual) Eosinophils % (Manual) Basophils % (Manual) Nucleated RBC % 2.0 H Seg Neutrophils # Seg Neutrophils # Man 10.8 H Lymphocytes # (Manual) Monocytes # (Manual) 1.0 H Eosinophils # (Manual) Basophils # (Manual) PT INR Fibrinogen dRVVT Confirm Interp Factor V Activity POC ABG pH POC ABG pCO2 POC ABG pO2 ABG pO2 ABG HCO3 ABG Base Excess ABG Hemoglobin Oxyhemoglobin Sodium Potassium Chloride Carbon Dioxide BUN 40 H Creatinine 1.5 H Glucose 135 H POC Glucose 107 H Lactic Acid Calcium 8.3 L Phosphorus 1.30 L D Magnesium Direct Bilirubin AST ALT Alkaline Phosphatase Lactate Dehydrogenase Troponin T C-Reactive Protein Total Protein Albumin Prealbumin Triglycerides Cholesterol LDL Cholesterol Direct HDL Cholesterol PTH Intact Urine pH Urine WBC (Auto) Urine Creatinine Urine Total Protein Fluid Total Protein Vancomycin Trough Rheumatoid Factor Complement C4 Miscellaneous Test Crossmatch 10/27/16 10/27/16 10/27/16 13:27 18:07 23:40 WBC RBC Hgb Hct MCV MCH MCHC RDW Plt Count Lymph % (Auto) Brown % (Auto) Lymph # Brown # Baso # Seg Neutrophils % Seg Neuts % (Manual) Lymphocytes % (Manual) Monocytes % (Manual) Eosinophils % (Manual) Basophils % (Manual) Nucleated RBC % Seg Neutrophils # Seg Neutrophils # Man Lymphocytes # (Manual) Monocytes # (Manual) Eosinophils # (Manual) Basophils # (Manual) PT INR Fibrinogen dRVVT Confirm Interp Factor V Activity POC ABG pH POC ABG pCO2 POC ABG pO2 ABG pO2 ABG HCO3 ABG Base Excess ABG Hemoglobin Oxyhemoglobin Sodium Potassium Chloride Carbon Dioxide BUN Creatinine Glucose POC Glucose 117 H 121 H 118 H Lactic Acid Calcium Phosphorus Magnesium Direct Bilirubin AST ALT Alkaline Phosphatase Lactate Dehydrogenase Troponin T C-Reactive Protein Total Protein Albumin Prealbumin Triglycerides Cholesterol LDL Cholesterol Direct HDL Cholesterol PTH Intact Urine pH Urine WBC (Auto) Urine Creatinine Urine Total Protein Fluid Total Protein Vancomycin Trough Rheumatoid Factor Complement C4 Miscellaneous Test Crossmatch 10/28/16 10/28/16 10/28/16 05:48 06:45 06:45 WBC 14.7 H RBC 3.05 L Hgb 9.0 L Hct 26.9 L MCV MCH MCHC RDW 16.8 H Plt Count Lymph % (Auto) 8.2 L Brown % (Auto) 8.4 H Lymph # Brown # 1.2 H Baso # Seg Neutrophils % 81.9 H Seg Neuts % (Manual) Lymphocytes % (Manual) Monocytes % (Manual) Eosinophils % (Manual) Basophils % (Manual) Nucleated RBC % Seg Neutrophils # 12.1 H Seg Neutrophils # Man Lymphocytes # (Manual) Monocytes # (Manual) Eosinophils # (Manual) Basophils # (Manual) PT INR Fibrinogen dRVVT Confirm Interp Factor V Activity POC ABG pH POC ABG pCO2 POC ABG pO2 ABG pO2 ABG HCO3 ABG Base Excess ABG Hemoglobin Oxyhemoglobin Sodium Potassium Chloride Carbon Dioxide BUN 60 H Creatinine 1.9 H Glucose 120 H POC Glucose 114 H Lactic Acid Calcium Phosphorus Magnesium Direct Bilirubin AST ALT Alkaline Phosphatase Lactate Dehydrogenase Troponin T C-Reactive Protein Total Protein Albumin Prealbumin Triglycerides Cholesterol LDL Cholesterol Direct HDL Cholesterol PTH Intact Urine pH Urine WBC (Auto) Urine Creatinine Urine Total Protein Fluid Total Protein Vancomycin Trough Rheumatoid Factor Complement C4 Miscellaneous Test Crossmatch 10/28/16 10/28/16 10/29/16 17:08 23:50 05:10 WBC RBC Hgb Hct MCV MCH MCHC RDW Plt Count Lymph % (Auto) Brown % (Auto) Lymph # Brown # Baso # Seg Neutrophils % Seg Neuts % (Manual) Lymphocytes % (Manual) Monocytes % (Manual) Eosinophils % (Manual) Basophils % (Manual) Nucleated RBC % Seg Neutrophils # Seg Neutrophils # Man Lymphocytes # (Manual) Monocytes # (Manual) Eosinophils # (Manual) Basophils # (Manual) PT INR Fibrinogen dRVVT Confirm Interp Factor V Activity POC ABG pH POC ABG pCO2 POC ABG pO2 ABG pO2 ABG HCO3 ABG Base Excess ABG Hemoglobin Oxyhemoglobin Sodium Potassium Chloride Carbon Dioxide BUN Creatinine Glucose POC Glucose 109 H 110 H 124 H Lactic Acid Calcium Phosphorus Magnesium Direct Bilirubin AST ALT Alkaline Phosphatase Lactate Dehydrogenase Troponin T C-Reactive Protein Total Protein Albumin Prealbumin Triglycerides Cholesterol LDL Cholesterol Direct HDL Cholesterol PTH Intact Urine pH Urine WBC (Auto) Urine Creatinine Urine Total Protein Fluid Total Protein Vancomycin Trough Rheumatoid Factor Complement C4 Miscellaneous Test Crossmatch 10/29/16 10/29/16 10/29/16 07:45 07:45 12:19 WBC 14.7 H RBC 3.15 L Hgb 9.3 L Hct 28.9 L MCV MCH MCHC RDW 17.0 H Plt Count Lymph % (Auto) 11.9 L Brown % (Auto) 8.6 H Lymph # Brown # 1.3 H Baso # Seg Neutrophils % 78.1 H Seg Neuts % (Manual) Lymphocytes % (Manual) Monocytes % (Manual) Eosinophils % (Manual) Basophils % (Manual) Nucleated RBC % Seg Neutrophils # 11.4 H Seg Neutrophils # Man Lymphocytes # (Manual) Monocytes # (Manual) Eosinophils # (Manual) Basophils # (Manual) PT INR Fibrinogen dRVVT Confirm Interp Factor V Activity POC ABG pH POC ABG pCO2 POC ABG pO2 ABG pO2 ABG HCO3 ABG Base Excess ABG Hemoglobin Oxyhemoglobin Sodium Potassium 5.1 H Chloride Carbon Dioxide 19 L BUN 78 H Creatinine 2.2 H Glucose 116 H POC Glucose 118 H Lactic Acid Calcium Phosphorus Magnesium Direct Bilirubin AST ALT Alkaline Phosphatase Lactate Dehydrogenase Troponin T C-Reactive Protein Total Protein Albumin Prealbumin Triglycerides Cholesterol LDL Cholesterol Direct HDL Cholesterol PTH Intact Urine pH Urine WBC (Auto) Urine Creatinine Urine Total Protein Fluid Total Protein Vancomycin Trough Rheumatoid Factor Complement C4 Miscellaneous Test Crossmatch 10/29/16 10/30/16 10/30/16 17:49 01:52 03:28 WBC RBC Hgb Hct MCV MCH MCHC RDW Plt Count Lymph % (Auto) Brown % (Auto) Lymph # Brown # Baso # Seg Neutrophils % Seg Neuts % (Manual) Lymphocytes % (Manual) Monocytes % (Manual) Eosinophils % (Manual) Basophils % (Manual) Nucleated RBC % Seg Neutrophils # Seg Neutrophils # Man Lymphocytes # (Manual) Monocytes # (Manual) Eosinophils # (Manual) Basophils # (Manual) PT INR Fibrinogen dRVVT Confirm Interp Factor V Activity POC ABG pH POC ABG pCO2 POC ABG pO2 ABG pO2 ABG HCO3 ABG Base Excess ABG Hemoglobin Oxyhemoglobin Sodium Potassium 5.4 H Chloride 97.5 L Carbon Dioxide 19 L BUN 90 H Creatinine 2.5 H Glucose POC Glucose 120 H 129 H Lactic Acid Calcium Phosphorus 5.20 H Magnesium Direct Bilirubin AST ALT Alkaline Phosphatase Lactate Dehydrogenase Troponin T C-Reactive Protein Total Protein Albumin Prealbumin Triglycerides Cholesterol LDL Cholesterol Direct HDL Cholesterol PTH Intact Urine pH Urine WBC (Auto) Urine Creatinine Urine Total Protein Fluid Total Protein Vancomycin Trough Rheumatoid Factor Complement C4 Miscellaneous Test Crossmatch 10/30/16 10/30/16 10/30/16 03:28 08:19 08:19 WBC 11.6 H 15.9 H RBC 2.75 L 2.82 L Hgb 7.9 L 8.3 L Hct 24.2 L 25.2 L MCV MCH MCHC RDW 16.7 H 17.2 H Plt Count Lymph % (Auto) Brown % (Auto) 9.8 H Lymph # Brown # 1.1 H Baso # Seg Neutrophils % 74.2 H Seg Neuts % (Manual) Lymphocytes % (Manual) Monocytes % (Manual) Eosinophils % (Manual) Basophils % (Manual) Nucleated RBC % Seg Neutrophils # 8.6 H Seg Neutrophils # Man Lymphocytes # (Manual) Monocytes # (Manual) Eosinophils # (Manual) Basophils # (Manual) PT INR Fibrinogen dRVVT Confirm Interp Factor V Activity POC ABG pH POC ABG pCO2 POC ABG pO2 ABG pO2 ABG HCO3 ABG Base Excess ABG Hemoglobin Oxyhemoglobin Sodium Potassium 5.3 H Chloride 97.4 L Carbon Dioxide 19 L BUN 93 H Creatinine 2.6 H Glucose POC Glucose Lactic Acid Calcium Phosphorus Magnesium Direct Bilirubin AST ALT Alkaline Phosphatase Lactate Dehydrogenase Troponin T C-Reactive Protein Total Protein Albumin Prealbumin Triglycerides Cholesterol LDL Cholesterol Direct HDL Cholesterol PTH Intact Urine pH Urine WBC (Auto) Urine Creatinine Urine Total Protein Fluid Total Protein Vancomycin Trough Rheumatoid Factor Complement C4 Miscellaneous Test Crossmatch 10/30/16 10/30/16 10/31/16 17:11 23:56 00:40 WBC RBC Hgb Hct MCV MCH MCHC RDW Plt Count Lymph % (Auto) Brown % (Auto) Lymph # Brown # Baso # Seg Neutrophils % Seg Neuts % (Manual) Lymphocytes % (Manual) Monocytes % (Manual) Eosinophils % (Manual) Basophils % (Manual) Nucleated RBC % Seg Neutrophils # Seg Neutrophils # Man Lymphocytes # (Manual) Monocytes # (Manual) Eosinophils # (Manual) Basophils # (Manual) PT INR Fibrinogen dRVVT Confirm Interp Factor V Activity POC ABG pH POC ABG pCO2 POC ABG pO2 ABG pO2 ABG HCO3 ABG Base Excess ABG Hemoglobin Oxyhemoglobin Sodium Potassium Chloride Carbon Dioxide BUN Creatinine Glucose POC Glucose 106 H 117 H 120 H Lactic Acid Calcium Phosphorus Magnesium Direct Bilirubin AST ALT Alkaline Phosphatase Lactate Dehydrogenase Troponin T C-Reactive Protein Total Protein Albumin Prealbumin Triglycerides Cholesterol LDL Cholesterol Direct HDL Cholesterol PTH Intact Urine pH Urine WBC (Auto) Urine Creatinine Urine Total Protein Fluid Total Protein Vancomycin Trough Rheumatoid Factor Complement C4 Miscellaneous Test Crossmatch 10/31/16 10/31/16 10/31/16 05:43 07:15 07:15 WBC 12.1 H RBC 2.63 L Hgb 7.7 L Hct 23.3 L MCV MCH MCHC RDW 16.7 H Plt Count Lymph % (Auto) 11.7 L Brown % (Auto) 7.7 H Lymph # Brown # 0.9 H Baso # Seg Neutrophils % 78.0 H Seg Neuts % (Manual) Lymphocytes % (Manual) Monocytes % (Manual) Eosinophils % (Manual) Basophils % (Manual) Nucleated RBC % Seg Neutrophils # 9.4 H Seg Neutrophils # Man Lymphocytes # (Manual) Monocytes # (Manual) Eosinophils # (Manual) Basophils # (Manual) PT INR Fibrinogen dRVVT Confirm Interp Factor V Activity POC ABG pH POC ABG pCO2 POC ABG pO2 ABG pO2 ABG HCO3 ABG Base Excess ABG Hemoglobin Oxyhemoglobin Sodium Potassium Chloride 96.4 L Carbon Dioxide 21 L BUN 99 H Creatinine 2.6 H Glucose 144 H POC Glucose 125 H Lactic Acid Calcium Phosphorus 4.80 H Magnesium Direct Bilirubin AST ALT Alkaline Phosphatase Lactate Dehydrogenase Troponin T C-Reactive Protein Total Protein Albumin Prealbumin Triglycerides Cholesterol LDL Cholesterol Direct HDL Cholesterol PTH Intact Urine pH Urine WBC (Auto) Urine Creatinine Urine Total Protein Fluid Total Protein Vancomycin Trough Rheumatoid Factor Complement C4 Miscellaneous Test Crossmatch 10/31/16 10/31/16 11/01/16 11:46 18:34 00:20 WBC RBC Hgb Hct MCV MCH MCHC RDW Plt Count Lymph % (Auto) Brown % (Auto) Lymph # Brown # Baso # Seg Neutrophils % Seg Neuts % (Manual) Lymphocytes % (Manual) Monocytes % (Manual) Eosinophils % (Manual) Basophils % (Manual) Nucleated RBC % Seg Neutrophils # Seg Neutrophils # Man Lymphocytes # (Manual) Monocytes # (Manual) Eosinophils # (Manual) Basophils # (Manual) PT INR Fibrinogen dRVVT Confirm Interp Factor V Activity POC ABG pH POC ABG pCO2 POC ABG pO2 ABG pO2 ABG HCO3 ABG Base Excess ABG Hemoglobin Oxyhemoglobin Sodium Potassium Chloride Carbon Dioxide BUN Creatinine Glucose POC Glucose 159 H 140 H 132 H Lactic Acid Calcium Phosphorus Magnesium Direct Bilirubin AST ALT Alkaline Phosphatase Lactate Dehydrogenase Troponin T C-Reactive Protein Total Protein Albumin Prealbumin Triglycerides Cholesterol LDL Cholesterol Direct HDL Cholesterol PTH Intact Urine pH Urine WBC (Auto) Urine Creatinine Urine Total Protein Fluid Total Protein Vancomycin Trough Rheumatoid Factor Complement C4 Miscellaneous Test Crossmatch 11/01/16 11/01/16 11/01/16 04:55 04:55 06:11 WBC 11.2 H RBC 2.68 L Hgb 7.5 L Hct 23.7 L MCV MCH MCHC RDW 16.1 H Plt Count Lymph % (Auto) Brown % (Auto) 9.8 H Lymph # Brown # 1.1 H Baso # Seg Neutrophils % 70.8 H Seg Neuts % (Manual) Lymphocytes % (Manual) Monocytes % (Manual) Eosinophils % (Manual) Basophils % (Manual) Nucleated RBC % Seg Neutrophils # 7.9 H Seg Neutrophils # Man Lymphocytes # (Manual) Monocytes # (Manual) Eosinophils # (Manual) Basophils # (Manual) PT INR Fibrinogen dRVVT Confirm Interp Factor V Activity POC ABG pH POC ABG pCO2 POC ABG pO2 ABG pO2 ABG HCO3 ABG Base Excess ABG Hemoglobin Oxyhemoglobin Sodium Potassium 3.3 L D Chloride Carbon Dioxide BUN 61 H Creatinine 1.9 H Glucose 114 H POC Glucose 115 H Lactic Acid Calcium Phosphorus 1.80 L D Magnesium Direct Bilirubin AST ALT Alkaline Phosphatase Lactate Dehydrogenase Troponin T C-Reactive Protein Total Protein Albumin Prealbumin Triglycerides Cholesterol LDL Cholesterol Direct HDL Cholesterol PTH Intact Urine pH Urine WBC (Auto) Urine Creatinine Urine Total Protein Fluid Total Protein Vancomycin Trough Rheumatoid Factor Complement C4 Miscellaneous Test Crossmatch 11/01/16 11/01/16 11/01/16 12:29 18:23 23:58 WBC RBC Hgb Hct MCV MCH MCHC RDW Plt Count Lymph % (Auto) Brown % (Auto) Lymph # Brown # Baso # Seg Neutrophils % Seg Neuts % (Manual) Lymphocytes % (Manual) Monocytes % (Manual) Eosinophils % (Manual) Basophils % (Manual) Nucleated RBC % Seg Neutrophils # Seg Neutrophils # Man Lymphocytes # (Manual) Monocytes # (Manual) Eosinophils # (Manual) Basophils # (Manual) PT INR Fibrinogen dRVVT Confirm Interp Factor V Activity POC ABG pH POC ABG pCO2 POC ABG pO2 ABG pO2 ABG HCO3 ABG Base Excess ABG Hemoglobin Oxyhemoglobin Sodium Potassium Chloride Carbon Dioxide BUN Creatinine Glucose POC Glucose 142 H 143 H 128 H Lactic Acid Calcium Phosphorus Magnesium Direct Bilirubin AST ALT Alkaline Phosphatase Lactate Dehydrogenase Troponin T C-Reactive Protein Total Protein Albumin Prealbumin Triglycerides Cholesterol LDL Cholesterol Direct HDL Cholesterol PTH Intact Urine pH Urine WBC (Auto) Urine Creatinine Urine Total Protein Fluid Total Protein Vancomycin Trough Rheumatoid Factor Complement C4 Miscellaneous Test Crossmatch 11/02/16 11/02/16 11/02/16 04:16 05:29 11:58 WBC RBC Hgb Hct MCV MCH MCHC RDW Plt Count Lymph % (Auto) Brown % (Auto) Lymph # Brown # Baso # Seg Neutrophils % Seg Neuts % (Manual) Lymphocytes % (Manual) Monocytes % (Manual) Eosinophils % (Manual) Basophils % (Manual) Nucleated RBC % Seg Neutrophils # Seg Neutrophils # Man Lymphocytes # (Manual) Monocytes # (Manual) Eosinophils # (Manual) Basophils # (Manual) PT INR Fibrinogen dRVVT Confirm Interp Factor V Activity POC ABG pH POC ABG pCO2 POC ABG pO2 ABG pO2 ABG HCO3 ABG Base Excess ABG Hemoglobin Oxyhemoglobin Sodium Potassium 3.1 L Chloride Carbon Dioxide BUN 73 H Creatinine 2.3 H Glucose 112 H POC Glucose 135 H 149 H Lactic Acid Calcium Phosphorus Magnesium Direct Bilirubin AST ALT Alkaline Phosphatase Lactate Dehydrogenase Troponin T C-Reactive Protein Total Protein Albumin Prealbumin Triglycerides Cholesterol LDL Cholesterol Direct HDL Cholesterol PTH Intact Urine pH Urine WBC (Auto) Urine Creatinine Urine Total Protein Fluid Total Protein Vancomycin Trough Rheumatoid Factor Complement C4 Miscellaneous Test Crossmatch 11/02/16 11/02/16 11/03/16 17:42 22:54 06:00 WBC RBC Hgb Hct MCV MCH MCHC RDW Plt Count Lymph % (Auto) Brown % (Auto) Lymph # Brown # Baso # Seg Neutrophils % Seg Neuts % (Manual) Lymphocytes % (Manual) Monocytes % (Manual) Eosinophils % (Manual) Basophils % (Manual) Nucleated RBC % Seg Neutrophils # Seg Neutrophils # Man Lymphocytes # (Manual) Monocytes # (Manual) Eosinophils # (Manual) Basophils # (Manual) PT INR Fibrinogen dRVVT Confirm Interp Factor V Activity POC ABG pH POC ABG pCO2 POC ABG pO2 ABG pO2 ABG HCO3 ABG Base Excess ABG Hemoglobin Oxyhemoglobin Sodium Potassium Chloride 96.7 L Carbon Dioxide BUN 41 H Creatinine 1.5 H Glucose 145 H POC Glucose 182 H 115 H Lactic Acid Calcium Phosphorus 1.60 L D Magnesium 1.50 L Direct Bilirubin AST ALT Alkaline Phosphatase Lactate Dehydrogenase Troponin T C-Reactive Protein Total Protein Albumin Prealbumin Triglycerides Cholesterol LDL Cholesterol Direct HDL Cholesterol PTH Intact Urine pH Urine WBC (Auto) Urine Creatinine Urine Total Protein Fluid Total Protein Vancomycin Trough Rheumatoid Factor Complement C4 Miscellaneous Test Crossmatch 11/03/16 11/03/16 11/03/16 11:53 17:45 23:37 WBC RBC Hgb Hct MCV MCH MCHC RDW Plt Count Lymph % (Auto) Brown % (Auto) Lymph # Brown # Baso # Seg Neutrophils % Seg Neuts % (Manual) Lymphocytes % (Manual) Monocytes % (Manual) Eosinophils % (Manual) Basophils % (Manual) Nucleated RBC % Seg Neutrophils # Seg Neutrophils # Man Lymphocytes # (Manual) Monocytes # (Manual) Eosinophils # (Manual) Basophils # (Manual) PT INR Fibrinogen dRVVT Confirm Interp Factor V Activity POC ABG pH POC ABG pCO2 POC ABG pO2 ABG pO2 ABG HCO3 ABG Base Excess ABG Hemoglobin Oxyhemoglobin Sodium Potassium Chloride Carbon Dioxide BUN Creatinine Glucose POC Glucose 131 H 134 H 113 H Lactic Acid Calcium Phosphorus Magnesium Direct Bilirubin AST ALT Alkaline Phosphatase Lactate Dehydrogenase Troponin T C-Reactive Protein Total Protein Albumin Prealbumin Triglycerides Cholesterol LDL Cholesterol Direct HDL Cholesterol PTH Intact Urine pH Urine WBC (Auto) Urine Creatinine Urine Total Protein Fluid Total Protein Vancomycin Trough Rheumatoid Factor Complement C4 Miscellaneous Test Crossmatch 11/04/16 11/04/16 11/04/16 05:41 06:00 12:10 WBC RBC Hgb Hct MCV MCH MCHC RDW Plt Count Lymph % (Auto) Brown % (Auto) Lymph # Brown # Baso # Seg Neutrophils % Seg Neuts % (Manual) Lymphocytes % (Manual) Monocytes % (Manual) Eosinophils % (Manual) Basophils % (Manual) Nucleated RBC % Seg Neutrophils # Seg Neutrophils # Man Lymphocytes # (Manual) Monocytes # (Manual) Eosinophils # (Manual) Basophils # (Manual) PT INR Fibrinogen dRVVT Confirm Interp Factor V Activity POC ABG pH POC ABG pCO2 POC ABG pO2 ABG pO2 ABG HCO3 ABG Base Excess ABG Hemoglobin Oxyhemoglobin Sodium Potassium Chloride 96.7 L Carbon Dioxide BUN 52 H Creatinine 1.9 H Glucose 126 H POC Glucose 137 H 191 H Lactic Acid Calcium Phosphorus Magnesium Direct Bilirubin AST ALT Alkaline Phosphatase Lactate Dehydrogenase Troponin T C-Reactive Protein Total Protein Albumin Prealbumin Triglycerides Cholesterol LDL Cholesterol Direct HDL Cholesterol PTH Intact Urine pH Urine WBC (Auto) Urine Creatinine Urine Total Protein Fluid Total Protein Vancomycin Trough Rheumatoid Factor Complement C4 Miscellaneous Test Crossmatch 11/04/16 11/05/16 11/05/16 22:57 03:10 05:10 WBC RBC Hgb Hct MCV MCH MCHC RDW Plt Count Lymph % (Auto) Brown % (Auto) Lymph # Brown # Baso # Seg Neutrophils % Seg Neuts % (Manual) Lymphocytes % (Manual) Monocytes % (Manual) Eosinophils % (Manual) Basophils % (Manual) Nucleated RBC % Seg Neutrophils # Seg Neutrophils # Man Lymphocytes # (Manual) Monocytes # (Manual) Eosinophils # (Manual) Basophils # (Manual) PT INR Fibrinogen dRVVT Confirm Interp Factor V Activity POC ABG pH POC ABG pCO2 POC ABG pO2 ABG pO2 ABG HCO3 ABG Base Excess ABG Hemoglobin Oxyhemoglobin Sodium 136 L Potassium Chloride 97.2 L Carbon Dioxide BUN 32 H Creatinine 1.3 H Glucose 123 H POC Glucose 125 H 108 H Lactic Acid Calcium 7.8 L Phosphorus Magnesium Direct Bilirubin AST ALT Alkaline Phosphatase Lactate Dehydrogenase Troponin T C-Reactive Protein Total Protein Albumin Prealbumin Triglycerides Cholesterol LDL Cholesterol Direct HDL Cholesterol PTH Intact Urine pH Urine WBC (Auto) Urine Creatinine Urine Total Protein Fluid Total Protein Vancomycin Trough Rheumatoid Factor Complement C4 Miscellaneous Test Crossmatch 11/05/16 11/05/1617 12:23 13:09 13:25 WBC RBC Hgb Hct MCV MCH MCHC RDW Plt Count Lymph % (Auto) Brown % (Auto) Lymph # Brown # Baso # Seg Neutrophils % Seg Neuts % (Manual) Lymphocytes % (Manual) Monocytes % (Manual) Eosinophils % (Manual) Basophils % (Manual) Nucleated RBC % Seg Neutrophils # Seg Neutrophils # Man Lymphocytes # (Manual) Monocytes # (Manual) Eosinophils # (Manual) Basophils # (Manual) PT INR Fibrinogen dRVVT Confirm Interp Factor V Activity POC ABG pH POC ABG pCO2 POC ABG pO2 ABG pO2 ABG HCO3 ABG Base Excess ABG Hemoglobin Oxyhemoglobin Sodium Potassium Chloride Carbon Dioxide BUN Creatinine Glucose POC Glucose 124 H Lactic Acid Calcium Phosphorus Magnesium Direct Bilirubin AST ALT Alkaline Phosphatase Lactate Dehydrogenase Troponin T C-Reactive Protein 11.40 H Total Protein Albumin Prealbumin Triglycerides Cholesterol LDL Cholesterol Direct HDL Cholesterol PTH Intact Urine pH 9.0 H Urine WBC (Auto) Urine Creatinine Urine Total Protein Fluid Total Protein Vancomycin Trough Rheumatoid Factor Complement C4 Miscellaneous Test Crossmatch 11/05/16 11/05/16 11/05/16 13:25 17:54 23:42 WBC RBC Hgb Hct MCV MCH MCHC RDW Plt Count Lymph % (Auto) Brown % (Auto) Lymph # Brown # Baso # Seg Neutrophils % Seg Neuts % (Manual) Lymphocytes % (Manual) Monocytes % (Manual) Eosinophils % (Manual) Basophils % (Manual) Nucleated RBC % Seg Neutrophils # Seg Neutrophils # Man Lymphocytes # (Manual) Monocytes # (Manual) Eosinophils # (Manual) Basophils # (Manual) PT INR Fibrinogen dRVVT Confirm Interp Factor V Activity POC ABG pH POC ABG pCO2 POC ABG pO2 ABG pO2 ABG HCO3 ABG Base Excess ABG Hemoglobin Oxyhemoglobin Sodium Potassium Chloride Carbon Dioxide BUN Creatinine Glucose POC Glucose 114 H 134 H Lactic Acid Calcium Phosphorus Magnesium Direct Bilirubin AST ALT Alkaline Phosphatase Lactate Dehydrogenase Troponin T C-Reactive Protein Total Protein Albumin Prealbumin Triglycerides Cholesterol LDL Cholesterol Direct HDL Cholesterol PTH Intact Urine pH Urine WBC (Auto) Urine Creatinine Urine Total Protein Fluid Total Protein Vancomycin Trough Rheumatoid Factor Complement C4 Miscellaneous Test Flexitest 1 H Crossmatch 11/06/16 11/06/16 11/06/16 04:56 06:25 06:25 WBC RBC 2.50 L Hgb 7.3 L Hct 22.5 L MCV MCH MCHC RDW 16.9 H Plt Count Lymph % (Auto) Brown % (Auto) 10.5 H Lymph # Brown # 1.1 H Baso # Seg Neutrophils % Seg Neuts % (Manual) Lymphocytes % (Manual) Monocytes % (Manual) Eosinophils % (Manual) Basophils % (Manual) Nucleated RBC % Seg Neutrophils # Seg Neutrophils # Man Lymphocytes # (Manual) Monocytes # (Manual) Eosinophils # (Manual) Basophils # (Manual) PT INR Fibrinogen dRVVT Confirm Interp Factor V Activity POC ABG pH POC ABG pCO2 POC ABG pO2 ABG pO2 ABG HCO3 ABG Base Excess ABG Hemoglobin Oxyhemoglobin Sodium Potassium 5.1 H Chloride 95.9 L Carbon Dioxide BUN 52 H Creatinine 1.8 H Glucose 117 H POC Glucose 120 H Lactic Acid Calcium Phosphorus Magnesium Direct Bilirubin AST 103 H ALT 77 H Alkaline Phosphatase 285 H Lactate Dehydrogenase Troponin T C-Reactive Protein Total Protein 6.2 L Albumin 1.8 L Prealbumin 0.180 L Triglycerides Cholesterol LDL Cholesterol Direct HDL Cholesterol PTH Intact Urine pH Urine WBC (Auto) Urine Creatinine Urine Total Protein Fluid Total Protein Vancomycin Trough Rheumatoid Factor Complement C4 Miscellaneous Test Crossmatch 11/06/16 11/06/16 11/06/16 11:56 17:14 23:52 WBC RBC Hgb Hct MCV MCH MCHC RDW Plt Count Lymph % (Auto) Brown % (Auto) Lymph # Brown # Baso # Seg Neutrophils % Seg Neuts % (Manual) Lymphocytes % (Manual) Monocytes % (Manual) Eosinophils % (Manual) Basophils % (Manual) Nucleated RBC % Seg Neutrophils # Seg Neutrophils # Man Lymphocytes # (Manual) Monocytes # (Manual) Eosinophils # (Manual) Basophils # (Manual) PT INR Fibrinogen dRVVT Confirm Interp Factor V Activity POC ABG pH POC ABG pCO2 POC ABG pO2 ABG pO2 ABG HCO3 ABG Base Excess ABG Hemoglobin Oxyhemoglobin Sodium Potassium Chloride Carbon Dioxide BUN Creatinine Glucose POC Glucose 141 H 125 H 130 H Lactic Acid Calcium Phosphorus Magnesium Direct Bilirubin AST ALT Alkaline Phosphatase Lactate Dehydrogenase Troponin T C-Reactive Protein Total Protein Albumin Prealbumin Triglycerides Cholesterol LDL Cholesterol Direct HDL Cholesterol PTH Intact Urine pH Urine WBC (Auto) Urine Creatinine Urine Total Protein Fluid Total Protein Vancomycin Trough Rheumatoid Factor Complement C4 Miscellaneous Test Crossmatch 11/07/16 11/07/16 11/07/16 06:30 06:30 09:37 WBC RBC 2.18 L Hgb 6.3 L Hct 19.7 L* MCV MCH MCHC RDW 16.8 H Plt Count Lymph % (Auto) Brown % (Auto) 10.0 H Lymph # Brown # 1.0 H Baso # Seg Neutrophils % Seg Neuts % (Manual) Lymphocytes % (Manual) Monocytes % (Manual) Eosinophils % (Manual) Basophils % (Manual) Nucleated RBC % Seg Neutrophils # Seg Neutrophils # Man Lymphocytes # (Manual) Monocytes # (Manual) Eosinophils # (Manual) Basophils # (Manual) PT INR Fibrinogen dRVVT Confirm Interp Factor V Activity POC ABG pH POC ABG pCO2 POC ABG pO2 ABG pO2 ABG HCO3 ABG Base Excess ABG Hemoglobin Oxyhemoglobin Sodium 135 L Potassium Chloride 95.6 L Carbon Dioxide BUN 70 H Creatinine 2.0 H Glucose 126 H POC Glucose Lactic Acid Calcium Phosphorus Magnesium Direct Bilirubin AST ALT Alkaline Phosphatase Lactate Dehydrogenase Troponin T C-Reactive Protein Total Protein Albumin Prealbumin Triglycerides Cholesterol LDL Cholesterol Direct HDL Cholesterol PTH Intact Urine pH Urine WBC (Auto) Urine Creatinine Urine Total Protein Fluid Total Protein Vancomycin Trough Rheumatoid Factor Complement C4 Miscellaneous Test Crossmatch See Detail 11/07/16 11/07/16 11/07/16 12:52 18:51 21:26 WBC RBC Hgb Hct MCV MCH MCHC RDW Plt Count Lymph % (Auto) Brown % (Auto) Lymph # Brown # Baso # Seg Neutrophils % Seg Neuts % (Manual) Lymphocytes % (Manual) Monocytes % (Manual) Eosinophils % (Manual) Basophils % (Manual) Nucleated RBC % Seg Neutrophils # Seg Neutrophils # Man Lymphocytes # (Manual) Monocytes # (Manual) Eosinophils # (Manual) Basophils # (Manual) PT INR Fibrinogen dRVVT Confirm Interp Factor V Activity POC ABG pH 7.523 H POC ABG pCO2 34.6 L POC ABG pO2 53 L ABG pO2 ABG HCO3 ABG Base Excess ABG Hemoglobin Oxyhemoglobin Sodium Potassium Chloride Carbon Dioxide BUN Creatinine Glucose POC Glucose 142 H 155 H Lactic Acid Calcium Phosphorus Magnesium Direct Bilirubin AST ALT Alkaline Phosphatase Lactate Dehydrogenase Troponin T C-Reactive Protein Total Protein Albumin Prealbumin Triglycerides Cholesterol LDL Cholesterol Direct HDL Cholesterol PTH Intact Urine pH Urine WBC (Auto) Urine Creatinine Urine Total Protein Fluid Total Protein Vancomycin Trough Rheumatoid Factor Complement C4 Miscellaneous Test Crossmatch 11/07/16 11/08/16 11/08/16 21:34 13:03 23:37 WBC RBC 2.63 L Hgb 7.7 L Hct 22.7 L MCV MCH MCHC RDW 17.0 H Plt Count Lymph % (Auto) Brown % (Auto) Lymph # Brown # Baso # Seg Neutrophils % Seg Neuts % (Manual) Lymphocytes % (Manual) Monocytes % (Manual) Eosinophils % (Manual) Basophils % (Manual) Nucleated RBC % Seg Neutrophils # Seg Neutrophils # Man Lymphocytes # (Manual) Monocytes # (Manual) Eosinophils # (Manual) Basophils # (Manual) PT INR Fibrinogen dRVVT Confirm Interp Factor V Activity POC ABG pH 7.478 H POC ABG pCO2 34.0 L POC ABG pO2 50 L ABG pO2 ABG HCO3 ABG Base Excess ABG Hemoglobin Oxyhemoglobin Sodium Potassium Chloride Carbon Dioxide BUN Creatinine Glucose POC Glucose 113 H Lactic Acid Calcium Phosphorus Magnesium Direct Bilirubin AST ALT Alkaline Phosphatase Lactate Dehydrogenase Troponin T C-Reactive Protein Total Protein Albumin Prealbumin Triglycerides Cholesterol LDL Cholesterol Direct HDL Cholesterol PTH Intact Urine pH Urine WBC (Auto) Urine Creatinine Urine Total Protein Fluid Total Protein Vancomycin Trough Rheumatoid Factor Complement C4 Miscellaneous Test Crossmatch 11/09/16 11/09/16 11/09/16 04:35 10:15 18:21 WBC RBC 2.68 L Hgb 7.8 L Hct 23.3 L MCV MCH MCHC RDW 17.0 H Plt Count Lymph % (Auto) Brown % (Auto) 12.1 H Lymph # Brown # 1.1 H Baso # Seg Neutrophils % Seg Neuts % (Manual) Lymphocytes % (Manual) Monocytes % (Manual) Eosinophils % (Manual) Basophils % (Manual) Nucleated RBC % Seg Neutrophils # Seg Neutrophils # Man Lymphocytes # (Manual) Monocytes # (Manual) Eosinophils # (Manual) Basophils # (Manual) PT INR Fibrinogen dRVVT Confirm Interp Factor V Activity POC ABG pH POC ABG pCO2 POC ABG pO2 ABG pO2 ABG HCO3 ABG Base Excess ABG Hemoglobin Oxyhemoglobin Sodium Potassium Chloride Carbon Dioxide BUN 51 H Creatinine 1.8 H Glucose POC Glucose 60 L Lactic Acid Calcium 8.3 L Phosphorus Magnesium Direct Bilirubin AST ALT Alkaline Phosphatase Lactate Dehydrogenase Troponin T C-Reactive Protein Total Protein Albumin Prealbumin Triglycerides Cholesterol LDL Cholesterol Direct HDL Cholesterol PTH Intact Urine pH Urine WBC (Auto) Urine Creatinine Urine Total Protein Fluid Total Protein Vancomycin Trough Rheumatoid Factor Complement C4 Miscellaneous Test Crossmatch 11/09/16 11/10/16 11/10/16 18:55 07:00 11:51 WBC RBC Hgb Hct MCV MCH MCHC RDW Plt Count Lymph % (Auto) Brown % (Auto) Lymph # Brown # Baso # Seg Neutrophils % Seg Neuts % (Manual) Lymphocytes % (Manual) Monocytes % (Manual) Eosinophils % (Manual) Basophils % (Manual) Nucleated RBC % Seg Neutrophils # Seg Neutrophils # Man Lymphocytes # (Manual) Monocytes # (Manual) Eosinophils # (Manual) Basophils # (Manual) PT INR Fibrinogen dRVVT Confirm Interp Factor V Activity POC ABG pH POC ABG pCO2 POC ABG pO2 ABG pO2 ABG HCO3 ABG Base Excess ABG Hemoglobin Oxyhemoglobin Sodium Potassium 3.0 L D Chloride 97.4 L Carbon Dioxide BUN 28 H Creatinine 1.3 H Glucose POC Glucose 68 L 120 H Lactic Acid Calcium 7.8 L Phosphorus Magnesium Direct Bilirubin AST ALT Alkaline Phosphatase Lactate Dehydrogenase Troponin T C-Reactive Protein Total Protein Albumin Prealbumin Triglycerides Cholesterol LDL Cholesterol Direct HDL Cholesterol PTH Intact Urine pH Urine WBC (Auto) Urine Creatinine Urine Total Protein Fluid Total Protein Vancomycin Trough Rheumatoid Factor Complement C4 Miscellaneous Test Crossmatch 11/10/16 11/11/16 11/11/16 14:20 06:59 06:59 WBC RBC 2.81 L Hgb 8.1 L Hct 24.4 L MCV MCH MCHC RDW 16.4 H Plt Count Lymph % (Auto) Brown % (Auto) 10.8 H Lymph # Brown # 1.0 H Baso # Seg Neutrophils % Seg Neuts % (Manual) Lymphocytes % (Manual) Monocytes % (Manual) Eosinophils % (Manual) Basophils % (Manual) Nucleated RBC % Seg Neutrophils # Seg Neutrophils # Man Lymphocytes # (Manual) Monocytes # (Manual) Eosinophils # (Manual) Basophils # (Manual) PT INR Fibrinogen dRVVT Confirm Interp Factor V Activity POC ABG pH POC ABG pCO2 POC ABG pO2 ABG pO2 ABG HCO3 ABG Base Excess ABG Hemoglobin Oxyhemoglobin Sodium Potassium Chloride Carbon Dioxide BUN Creatinine Glucose POC Glucose Lactic Acid Calcium Phosphorus Magnesium Direct Bilirubin AST ALT Alkaline Phosphatase Lactate Dehydrogenase 196 H Troponin T C-Reactive Protein Total Protein 6.1 L Albumin Prealbumin Triglycerides Cholesterol LDL Cholesterol Direct HDL Cholesterol PTH Intact Urine pH Urine WBC (Auto) Urine Creatinine Urine Total Protein Fluid Total Protein < 3.0 L Vancomycin Trough Rheumatoid Factor Complement C4 Miscellaneous Test Crossmatch 11/11/16 11/11/16 11/12/16 06:59 09:50 04:00 WBC RBC Hgb Hct MCV MCH MCHC RDW Plt Count Lymph % (Auto) Brown % (Auto) Lymph # Brown # Baso # Seg Neutrophils % Seg Neuts % (Manual) Lymphocytes % (Manual) Monocytes % (Manual) Eosinophils % (Manual) Basophils % (Manual) Nucleated RBC % Seg Neutrophils # Seg Neutrophils # Man Lymphocytes # (Manual) Monocytes # (Manual) Eosinophils # (Manual) Basophils # (Manual) PT INR 1.18 H Fibrinogen dRVVT Confirm Interp Factor V Activity POC ABG pH POC ABG pCO2 POC ABG pO2 ABG pO2 ABG HCO3 ABG Base Excess ABG Hemoglobin Oxyhemoglobin Sodium 136 L 133 L Potassium Chloride 96.1 L 94.8 L Carbon Dioxide 21 L BUN 37 H 42 H Creatinine 1.8 H 2.0 H Glucose POC Glucose Lactic Acid Calcium Phosphorus Magnesium Direct Bilirubin AST ALT Alkaline Phosphatase Lactate Dehydrogenase Troponin T C-Reactive Protein Total Protein Albumin Prealbumin Triglycerides Cholesterol LDL Cholesterol Direct HDL Cholesterol PTH Intact Urine pH Urine WBC (Auto) Urine Creatinine Urine Total Protein Fluid Total Protein Vancomycin Trough Rheumatoid Factor Complement C4 Miscellaneous Test Crossmatch 11/12/16 11/12/16 11/13/16 04:00 23:55 05:53 WBC RBC Hgb 8.9 L Hct 27.2 L MCV MCH MCHC RDW Plt Count Lymph % (Auto) Brown % (Auto) Lymph # Brown # Baso # Seg Neutrophils % Seg Neuts % (Manual) Lymphocytes % (Manual) Monocytes % (Manual) Eosinophils % (Manual) Basophils % (Manual) Nucleated RBC % Seg Neutrophils # Seg Neutrophils # Man Lymphocytes # (Manual) Monocytes # (Manual) Eosinophils # (Manual) Basophils # (Manual) PT INR Fibrinogen dRVVT Confirm Interp Factor V Activity POC ABG pH POC ABG pCO2 POC ABG pO2 ABG pO2 ABG HCO3 ABG Base Excess ABG Hemoglobin Oxyhemoglobin Sodium Potassium Chloride Carbon Dioxide BUN Creatinine Glucose POC Glucose 132 H 120 H Lactic Acid Calcium Phosphorus Magnesium Direct Bilirubin AST ALT Alkaline Phosphatase Lactate Dehydrogenase Troponin T C-Reactive Protein Total Protein Albumin Prealbumin Triglycerides Cholesterol LDL Cholesterol Direct HDL Cholesterol PTH Intact Urine pH Urine WBC (Auto) Urine Creatinine Urine Total Protein Fluid Total Protein Vancomycin Trough Rheumatoid Factor Complement C4 Miscellaneous Test Crossmatch 11/13/16 11/13/16 11/13/16 11:43 17:09 23:41 WBC RBC Hgb Hct MCV MCH MCHC RDW Plt Count Lymph % (Auto) Brown % (Auto) Lymph # Brown # Baso # Seg Neutrophils % Seg Neuts % (Manual) Lymphocytes % (Manual) Monocytes % (Manual) Eosinophils % (Manual) Basophils % (Manual) Nucleated RBC % Seg Neutrophils # Seg Neutrophils # Man Lymphocytes # (Manual) Monocytes # (Manual) Eosinophils # (Manual) Basophils # (Manual) PT INR Fibrinogen dRVVT Confirm Interp Factor V Activity POC ABG pH POC ABG pCO2 POC ABG pO2 ABG pO2 ABG HCO3 ABG Base Excess ABG Hemoglobin Oxyhemoglobin Sodium Potassium Chloride Carbon Dioxide BUN Creatinine Glucose POC Glucose 114 H 113 H 108 H Lactic Acid Calcium Phosphorus Magnesium Direct Bilirubin AST ALT Alkaline Phosphatase Lactate Dehydrogenase Troponin T C-Reactive Protein Total Protein Albumin Prealbumin Triglycerides Cholesterol LDL Cholesterol Direct HDL Cholesterol PTH Intact Urine pH Urine WBC (Auto) Urine Creatinine Urine Total Protein Fluid Total Protein Vancomycin Trough Rheumatoid Factor Complement C4 Miscellaneous Test Crossmatch 11/13/16 11/15/16 11/15/16 Unknown 00:37 03:30 WBC 11.2 H RBC 2.72 L Hgb 7.6 L Hct 23.4 L MCV MCH MCHC RDW 16.5 H Plt Count Lymph % (Auto) Brown % (Auto) Lymph # Brown # Baso # Seg Neutrophils % Seg Neuts % (Manual) Lymphocytes % (Manual) Monocytes % (Manual) Eosinophils % (Manual) Basophils % (Manual) Nucleated RBC % Seg Neutrophils # Seg Neutrophils # Man Lymphocytes # (Manual) Monocytes # (Manual) Eosinophils # (Manual) Basophils # (Manual) PT INR Fibrinogen dRVVT Confirm Interp Factor V Activity POC ABG pH POC ABG pCO2 POC ABG pO2 ABG pO2 ABG HCO3 ABG Base Excess ABG Hemoglobin Oxyhemoglobin Sodium 135 L Potassium Chloride 95.2 L Carbon Dioxide BUN 52 H Creatinine 2.2 H Glucose POC Glucose 108 H Lactic Acid Calcium Phosphorus Magnesium Direct Bilirubin AST ALT Alkaline Phosphatase Lactate Dehydrogenase Troponin T C-Reactive Protein Total Protein Albumin Prealbumin Triglycerides Cholesterol LDL Cholesterol Direct HDL Cholesterol PTH Intact Urine pH Urine WBC (Auto) Urine Creatinine Urine Total Protein Fluid Total Protein Vancomycin Trough Rheumatoid Factor Complement C4 Miscellaneous Test Crossmatch 11/15/16 11/15/16 11/15/16 03:30 05:04 11:50 WBC RBC Hgb Hct MCV MCH MCHC RDW Plt Count Lymph % (Auto) Brown % (Auto) Lymph # Brown # Baso # Seg Neutrophils % Seg Neuts % (Manual) Lymphocytes % (Manual) Monocytes % (Manual) Eosinophils % (Manual) Basophils % (Manual) Nucleated RBC % Seg Neutrophils # Seg Neutrophils # Man Lymphocytes # (Manual) Monocytes # (Manual) Eosinophils # (Manual) Basophils # (Manual) PT INR Fibrinogen dRVVT Confirm Interp Factor V Activity POC ABG pH POC ABG pCO2 POC ABG pO2 ABG pO2 ABG HCO3 ABG Base Excess ABG Hemoglobin Oxyhemoglobin Sodium Potassium 3.4 L Chloride Carbon Dioxide BUN 25 H Creatinine 1.5 H Glucose 103 H POC Glucose 121 H 144 H Lactic Acid Calcium Phosphorus Magnesium Direct Bilirubin AST ALT Alkaline Phosphatase Lactate Dehydrogenase Troponin T C-Reactive Protein Total Protein Albumin Prealbumin Triglycerides Cholesterol LDL Cholesterol Direct HDL Cholesterol PTH Intact Urine pH Urine WBC (Auto) Urine Creatinine Urine Total Protein Fluid Total Protein Vancomycin Trough Rheumatoid Factor Complement C4 Miscellaneous Test Crossmatch 11/15/16 11/15/16 11/16/16 21:28 23:20 11:44 WBC RBC Hgb Hct MCV MCH MCHC RDW Plt Count Lymph % (Auto) Brown % (Auto) Lymph # Brown # Baso # Seg Neutrophils % Seg Neuts % (Manual) Lymphocytes % (Manual) Monocytes % (Manual) Eosinophils % (Manual) Basophils % (Manual) Nucleated RBC % Seg Neutrophils # Seg Neutrophils # Man Lymphocytes # (Manual) Monocytes # (Manual) Eosinophils # (Manual) Basophils # (Manual) PT INR Fibrinogen dRVVT Confirm Interp Factor V Activity POC ABG pH 7.462 H POC ABG pCO2 POC ABG pO2 71 L ABG pO2 ABG HCO3 ABG Base Excess ABG Hemoglobin Oxyhemoglobin Sodium Potassium Chloride Carbon Dioxide BUN Creatinine Glucose POC Glucose 116 H 133 H Lactic Acid Calcium Phosphorus Magnesium Direct Bilirubin AST ALT Alkaline Phosphatase Lactate Dehydrogenase Troponin T C-Reactive Protein Total Protein Albumin Prealbumin Triglycerides Cholesterol LDL Cholesterol Direct HDL Cholesterol PTH Intact Urine pH Urine WBC (Auto) Urine Creatinine Urine Total Protein Fluid Total Protein Vancomycin Trough Rheumatoid Factor Complement C4 Miscellaneous Test Crossmatch 11/16/16 11/16/16 11/16/16 12:20 17:05 23:35 WBC 11.7 H RBC 2.73 L Hgb 7.6 L Hct 23.7 L MCV MCH MCHC RDW 16.6 H Plt Count Lymph % (Auto) Brown % (Auto) Lymph # Brown # Baso # Seg Neutrophils % Seg Neuts % (Manual) Lymphocytes % (Manual) Monocytes % (Manual) Eosinophils % (Manual) Basophils % (Manual) Nucleated RBC % Seg Neutrophils # Seg Neutrophils # Man Lymphocytes # (Manual) Monocytes # (Manual) Eosinophils # (Manual) Basophils # (Manual) PT INR Fibrinogen dRVVT Confirm Interp Factor V Activity POC ABG pH POC ABG pCO2 POC ABG pO2 ABG pO2 ABG HCO3 ABG Base Excess ABG Hemoglobin Oxyhemoglobin Sodium Potassium Chloride Carbon Dioxide BUN Creatinine Glucose POC Glucose 154 H 125 H Lactic Acid Calcium Phosphorus Magnesium Direct Bilirubin AST ALT Alkaline Phosphatase Lactate Dehydrogenase Troponin T C-Reactive Protein Total Protein Albumin Prealbumin Triglycerides Cholesterol LDL Cholesterol Direct HDL Cholesterol PTH Intact Urine pH Urine WBC (Auto) Urine Creatinine Urine Total Protein Fluid Total Protein Vancomycin Trough Rheumatoid Factor Complement C4 Miscellaneous Test Crossmatch 11/17/16 11/17/16 11/17/16 03:20 03:20 03:20 WBC RBC 2.55 L Hgb 7.3 L Hct 21.9 L MCV MCH MCHC RDW 16.6 H Plt Count Lymph % (Auto) Brown % (Auto) 11.5 H Lymph # Brown # 1.1 H Baso # Seg Neutrophils % Seg Neuts % (Manual) Lymphocytes % (Manual) Monocytes % (Manual) Eosinophils % (Manual) Basophils % (Manual) Nucleated RBC % Seg Neutrophils # Seg Neutrophils # Man Lymphocytes # (Manual) Monocytes # (Manual) Eosinophils # (Manual) Basophils # (Manual) PT 16.8 H INR 1.37 H Fibrinogen dRVVT Confirm Interp Factor V Activity POC ABG pH POC ABG pCO2 POC ABG pO2 ABG pO2 ABG HCO3 ABG Base Excess ABG Hemoglobin Oxyhemoglobin Sodium Potassium 3.5 L Chloride Carbon Dioxide BUN 21 H Creatinine Glucose POC Glucose Lactic Acid Calcium 7.9 L Phosphorus Magnesium Direct Bilirubin AST ALT Alkaline Phosphatase Lactate Dehydrogenase Troponin T C-Reactive Protein Total Protein Albumin Prealbumin Triglycerides Cholesterol LDL Cholesterol Direct HDL Cholesterol PTH Intact Urine pH Urine WBC (Auto) Urine Creatinine Urine Total Protein Fluid Total Protein Vancomycin Trough Rheumatoid Factor Complement C4 Miscellaneous Test Crossmatch 11/17/16 11/17/16 11/17/16 06:34 11:21 21:22 WBC RBC Hgb Hct MCV MCH MCHC RDW Plt Count Lymph % (Auto) Brown % (Auto) Lymph # Brown # Baso # Seg Neutrophils % Seg Neuts % (Manual) Lymphocytes % (Manual) Monocytes % (Manual) Eosinophils % (Manual) Basophils % (Manual) Nucleated RBC % Seg Neutrophils # Seg Neutrophils # Man Lymphocytes # (Manual) Monocytes # (Manual) Eosinophils # (Manual) Basophils # (Manual) PT INR Fibrinogen dRVVT Confirm Interp Factor V Activity POC ABG pH 7.467 H POC ABG pCO2 POC ABG pO2 73 L ABG pO2 ABG HCO3 ABG Base Excess ABG Hemoglobin Oxyhemoglobin Sodium Potassium Chloride Carbon Dioxide BUN Creatinine Glucose POC Glucose 121 H 119 H Lactic Acid Calcium Phosphorus Magnesium Direct Bilirubin AST ALT Alkaline Phosphatase Lactate Dehydrogenase Troponin T C-Reactive Protein Total Protein Albumin Prealbumin Triglycerides Cholesterol LDL Cholesterol Direct HDL Cholesterol PTH Intact Urine pH Urine WBC (Auto) Urine Creatinine Urine Total Protein Fluid Total Protein Vancomycin Trough Rheumatoid Factor Complement C4 Miscellaneous Test Crossmatch 11/18/16 11/18/16 11/19/16 12:16 17:19 00:00 WBC RBC Hgb Hct MCV MCH MCHC RDW Plt Count Lymph % (Auto) Brown % (Auto) Lymph # Brown # Baso # Seg Neutrophils % Seg Neuts % (Manual) Lymphocytes % (Manual) Monocytes % (Manual) Eosinophils % (Manual) Basophils % (Manual) Nucleated RBC % Seg Neutrophils # Seg Neutrophils # Man Lymphocytes # (Manual) Monocytes # (Manual) Eosinophils # (Manual) Basophils # (Manual) PT INR Fibrinogen dRVVT Confirm Interp Factor V Activity POC ABG pH POC ABG pCO2 POC ABG pO2 ABG pO2 ABG HCO3 ABG Base Excess ABG Hemoglobin Oxyhemoglobin Sodium Potassium Chloride Carbon Dioxide BUN Creatinine Glucose POC Glucose 124 H 162 H 139 H Lactic Acid Calcium Phosphorus Magnesium Direct Bilirubin AST ALT Alkaline Phosphatase Lactate Dehydrogenase Troponin T C-Reactive Protein Total Protein Albumin Prealbumin Triglycerides Cholesterol LDL Cholesterol Direct HDL Cholesterol PTH Intact Urine pH Urine WBC (Auto) Urine Creatinine Urine Total Protein Fluid Total Protein Vancomycin Trough Rheumatoid Factor Complement C4 Miscellaneous Test Crossmatch 11/19/16 11/19/16 11/20/16 05:00 12:43 00:40 WBC RBC Hgb Hct MCV MCH MCHC RDW Plt Count Lymph % (Auto) Brown % (Auto) Lymph # Brown # Baso # Seg Neutrophils % Seg Neuts % (Manual) Lymphocytes % (Manual) Monocytes % (Manual) Eosinophils % (Manual) Basophils % (Manual) Nucleated RBC % Seg Neutrophils # Seg Neutrophils # Man Lymphocytes # (Manual) Monocytes # (Manual) Eosinophils # (Manual) Basophils # (Manual) PT INR Fibrinogen dRVVT Confirm Interp Factor V Activity POC ABG pH POC ABG pCO2 POC ABG pO2 ABG pO2 ABG HCO3 ABG Base Excess ABG Hemoglobin Oxyhemoglobin Sodium Potassium Chloride Carbon Dioxide BUN Creatinine Glucose POC Glucose 110 H 125 H 136 H Lactic Acid Calcium Phosphorus Magnesium Direct Bilirubin AST ALT Alkaline Phosphatase Lactate Dehydrogenase Troponin T C-Reactive Protein Total Protein Albumin Prealbumin Triglycerides Cholesterol LDL Cholesterol Direct HDL Cholesterol PTH Intact Urine pH Urine WBC (Auto) Urine Creatinine Urine Total Protein Fluid Total Protein Vancomycin Trough Rheumatoid Factor Complement C4 Miscellaneous Test Crossmatch 11/20/16 11/20/16 11/20/16 05:00 05:00 05:51 WBC 13.1 H RBC 2.74 L Hgb 7.7 L Hct 23.6 L MCV MCH MCHC RDW 16.9 H Plt Count Lymph % (Auto) Brown % (Auto) 10.8 H Lymph # Brown # 1.4 H Baso # Seg Neutrophils % Seg Neuts % (Manual) Lymphocytes % (Manual) Monocytes % (Manual) Eosinophils % (Manual) Basophils % (Manual) Nucleated RBC % Seg Neutrophils # 7.9 H Seg Neutrophils # Man Lymphocytes # (Manual) Monocytes # (Manual) Eosinophils # (Manual) Basophils # (Manual) PT INR Fibrinogen dRVVT Confirm Interp Factor V Activity POC ABG pH POC ABG pCO2 POC ABG pO2 ABG pO2 ABG HCO3 ABG Base Excess ABG Hemoglobin Oxyhemoglobin Sodium Potassium Chloride Carbon Dioxide BUN 31 H Creatinine 1.8 H Glucose 129 H POC Glucose 133 H Lactic Acid Calcium Phosphorus Magnesium Direct Bilirubin AST ALT Alkaline Phosphatase Lactate Dehydrogenase Troponin T C-Reactive Protein Total Protein Albumin Prealbumin Triglycerides Cholesterol LDL Cholesterol Direct HDL Cholesterol PTH Intact Urine pH Urine WBC (Auto) Urine Creatinine Urine Total Protein Fluid Total Protein Vancomycin Trough Rheumatoid Factor Complement C4 Miscellaneous Test Crossmatch 11/20/16 11/20/16 11/21/16 12:40 18:10 01:20 WBC RBC Hgb Hct MCV MCH MCHC RDW Plt Count Lymph % (Auto) Brown % (Auto) Lymph # Brown # Baso # Seg Neutrophils % Seg Neuts % (Manual) Lymphocytes % (Manual) Monocytes % (Manual) Eosinophils % (Manual) Basophils % (Manual) Nucleated RBC % Seg Neutrophils # Seg Neutrophils # Man Lymphocytes # (Manual) Monocytes # (Manual) Eosinophils # (Manual) Basophils # (Manual) PT INR Fibrinogen dRVVT Confirm Interp Factor V Activity POC ABG pH POC ABG pCO2 POC ABG pO2 ABG pO2 ABG HCO3 ABG Base Excess ABG Hemoglobin Oxyhemoglobin Sodium Potassium Chloride Carbon Dioxide BUN Creatinine Glucose POC Glucose 134 H 138 H 136 H Lactic Acid Calcium Phosphorus Magnesium Direct Bilirubin AST ALT Alkaline Phosphatase Lactate Dehydrogenase Troponin T C-Reactive Protein Total Protein Albumin Prealbumin Triglycerides Cholesterol LDL Cholesterol Direct HDL Cholesterol PTH Intact Urine pH Urine WBC (Auto) Urine Creatinine Urine Total Protein Fluid Total Protein Vancomycin Trough Rheumatoid Factor Complement C4 Miscellaneous Test Crossmatch 11/21/16 11/21/16 11/21/16 07:04 07:45 07:45 WBC 22.0 H RBC 2.91 L Hgb 8.2 L Hct 25.4 L MCV MCH MCHC RDW 17.1 H Plt Count Lymph % (Auto) Brown % (Auto) Lymph # Brown # Baso # Seg Neutrophils % Seg Neuts % (Manual) Lymphocytes % (Manual) 8.0 L Monocytes % (Manual) Eosinophils % (Manual) Basophils % (Manual) Nucleated RBC % Seg Neutrophils # Seg Neutrophils # Man 14.7 H Lymphocytes # (Manual) Monocytes # (Manual) 1.1 H Eosinophils # (Manual) Basophils # (Manual) PT INR Fibrinogen dRVVT Confirm Interp Factor V Activity POC ABG pH POC ABG pCO2 POC ABG pO2 ABG pO2 ABG HCO3 ABG Base Excess ABG Hemoglobin Oxyhemoglobin Sodium Potassium Chloride Carbon Dioxide BUN 42 H Creatinine 2.0 H Glucose POC Glucose 108 H Lactic Acid Calcium Phosphorus Magnesium Direct Bilirubin AST ALT Alkaline Phosphatase Lactate Dehydrogenase Troponin T C-Reactive Protein Total Protein Albumin Prealbumin Triglycerides Cholesterol LDL Cholesterol Direct HDL Cholesterol PTH Intact Urine pH Urine WBC (Auto) Urine Creatinine Urine Total Protein Fluid Total Protein Vancomycin Trough Rheumatoid Factor Complement C4 Miscellaneous Test Crossmatch 11/21/16 11/21/16 11/21/16 08:38 10:09 11:20 WBC RBC Hgb Hct MCV MCH MCHC RDW Plt Count Lymph % (Auto) Brown % (Auto) Lymph # Brown # Baso # Seg Neutrophils % Seg Neuts % (Manual) Lymphocytes % (Manual) Monocytes % (Manual) Eosinophils % (Manual) Basophils % (Manual) Nucleated RBC % Seg Neutrophils # Seg Neutrophils # Man Lymphocytes # (Manual) Monocytes # (Manual) Eosinophils # (Manual) Basophils # (Manual) PT INR Fibrinogen dRVVT Confirm Interp Factor V Activity POC ABG pH 7.346 L POC ABG pCO2 34.4 L POC ABG pO2 314 H ABG pO2 ABG HCO3 ABG Base Excess ABG Hemoglobin Oxyhemoglobin Sodium Potassium Chloride Carbon Dioxide BUN Creatinine Glucose POC Glucose 195 H 153 H Lactic Acid Calcium Phosphorus Magnesium Direct Bilirubin AST ALT Alkaline Phosphatase Lactate Dehydrogenase Troponin T C-Reactive Protein Total Protein Albumin Prealbumin Triglycerides Cholesterol LDL Cholesterol Direct HDL Cholesterol PTH Intact Urine pH Urine WBC (Auto) Urine Creatinine Urine Total Protein Fluid Total Protein Vancomycin Trough Rheumatoid Factor Complement C4 Miscellaneous Test Crossmatch 11/21/16 11/22/16 11/22/16 23:37 04:48 05:00 WBC 29.7 H RBC 2.73 L Hgb 7.5 L Hct 24.2 L MCV MCH 27 L MCHC RDW 17.4 H Plt Count Lymph % (Auto) Brown % (Auto) Lymph # Brown # Baso # Seg Neutrophils % Seg Neuts % (Manual) Lymphocytes % (Manual) 7.0 L Monocytes % (Manual) Eosinophils % (Manual) Basophils % (Manual) Nucleated RBC % Seg Neutrophils # Seg Neutrophils # Man 15.4 H Lymphocytes # (Manual) Monocytes # (Manual) Eosinophils # (Manual) Basophils # (Manual) PT INR Fibrinogen dRVVT Confirm Interp Factor V Activity POC ABG pH POC ABG pCO2 24.6 L POC ABG pO2 189 H ABG pO2 ABG HCO3 ABG Base Excess ABG Hemoglobin Oxyhemoglobin Sodium Potassium Chloride Carbon Dioxide BUN Creatinine Glucose POC Glucose 65 L Lactic Acid Calcium Phosphorus Magnesium Direct Bilirubin AST ALT Alkaline Phosphatase Lactate Dehydrogenase Troponin T C-Reactive Protein Total Protein Albumin Prealbumin Triglycerides Cholesterol LDL Cholesterol Direct HDL Cholesterol PTH Intact Urine pH Urine WBC (Auto) Urine Creatinine Urine Total Protein Fluid Total Protein Vancomycin Trough Rheumatoid Factor Complement C4 Miscellaneous Test Crossmatch 11/22/16 11/23/16 11/23/16 05:00 03:44 04:06 WBC RBC 2.52 L Hgb 7.2 L Hct 21.5 L MCV MCH MCHC RDW 17.1 H Plt Count Lymph % (Auto) Brown % (Auto) 12.4 H Lymph # Brown # 1.4 H Baso # Seg Neutrophils % Seg Neuts % (Manual) Lymphocytes % (Manual) Monocytes % (Manual) Eosinophils % (Manual) Basophils % (Manual) Nucleated RBC % Seg Neutrophils # Seg Neutrophils # Man Lymphocytes # (Manual) Monocytes # (Manual) Eosinophils # (Manual) Basophils # (Manual) PT INR Fibrinogen dRVVT Confirm Interp Factor V Activity POC ABG pH 7.493 H POC ABG pCO2 29.5 L POC ABG pO2 49 L ABG pO2 ABG HCO3 ABG Base Excess ABG Hemoglobin Oxyhemoglobin Sodium 134 L Potassium Chloride 95.9 L Carbon Dioxide 14 L D BUN 51 H Creatinine 2.6 H Glucose POC Glucose Lactic Acid Calcium Phosphorus Magnesium Direct Bilirubin AST ALT Alkaline Phosphatase Lactate Dehydrogenase Troponin T C-Reactive Protein Total Protein Albumin Prealbumin Triglycerides Cholesterol LDL Cholesterol Direct HDL Cholesterol PTH Intact Urine pH Urine WBC (Auto) Urine Creatinine Urine Total Protein Fluid Total Protein Vancomycin Trough Rheumatoid Factor Complement C4 Miscellaneous Test Crossmatch 11/23/16 11/23/16 11/24/16 04:06 11:29 06:39 WBC RBC Hgb Hct MCV MCH MCHC RDW Plt Count Lymph % (Auto) Brown % (Auto) Lymph # Brown # Baso # Seg Neutrophils % Seg Neuts % (Manual) Lymphocytes % (Manual) Monocytes % (Manual) Eosinophils % (Manual) Basophils % (Manual) Nucleated RBC % Seg Neutrophils # Seg Neutrophils # Man Lymphocytes # (Manual) Monocytes # (Manual) Eosinophils # (Manual) Basophils # (Manual) PT INR Fibrinogen dRVVT Confirm Interp Factor V Activity POC ABG pH POC ABG pCO2 POC ABG pO2 ABG pO2 ABG HCO3 ABG Base Excess ABG Hemoglobin Oxyhemoglobin Sodium 136 L Potassium Chloride 95.2 L Carbon Dioxide BUN 60 H Creatinine 2.9 H Glucose POC Glucose 69 L 305 H Lactic Acid Calcium Phosphorus Magnesium 1.60 L Direct Bilirubin AST ALT Alkaline Phosphatase Lactate Dehydrogenase Troponin T C-Reactive Protein Total Protein Albumin Prealbumin Triglycerides Cholesterol LDL Cholesterol Direct HDL Cholesterol PTH Intact Urine pH Urine WBC (Auto) Urine Creatinine Urine Total Protein Fluid Total Protein Vancomycin Trough Rheumatoid Factor Complement C4 Miscellaneous Test Crossmatch 11/24/16 11/24/16 11/24/16 06:43 08:08 08:08 WBC 11.2 H RBC 2.47 L Hgb 6.8 L Hct 20.6 L MCV MCH MCHC RDW 17.0 H Plt Count Lymph % (Auto) Brown % (Auto) 10.3 H Lymph # Brown # 1.2 H Baso # Seg Neutrophils % Seg Neuts % (Manual) Lymphocytes % (Manual) Monocytes % (Manual) Eosinophils % (Manual) Basophils % (Manual) Nucleated RBC % Seg Neutrophils # Seg Neutrophils # Man Lymphocytes # (Manual) Monocytes # (Manual) Eosinophils # (Manual) Basophils # (Manual) PT INR Fibrinogen dRVVT Confirm Interp Factor V Activity POC ABG pH POC ABG pCO2 POC ABG pO2 ABG pO2 ABG HCO3 ABG Base Excess ABG Hemoglobin Oxyhemoglobin Sodium 135 L Potassium Chloride 96.3 L Carbon Dioxide BUN 61 H Creatinine 3.1 H Glucose POC Glucose 62 L Lactic Acid Calcium 8.2 L Phosphorus Magnesium Direct Bilirubin AST ALT Alkaline Phosphatase Lactate Dehydrogenase Troponin T C-Reactive Protein Total Protein Albumin Prealbumin Triglycerides Cholesterol LDL Cholesterol Direct HDL Cholesterol PTH Intact Urine pH Urine WBC (Auto) Urine Creatinine Urine Total Protein Fluid Total Protein Vancomycin Trough Rheumatoid Factor Complement C4 Miscellaneous Test Crossmatch 11/24/16 11/24/16 11/24/16 08:34 11:20 12:41 WBC RBC Hgb Hct MCV MCH MCHC RDW Plt Count Lymph % (Auto) Brown % (Auto) Lymph # Brown # Baso # Seg Neutrophils % Seg Neuts % (Manual) Lymphocytes % (Manual) Monocytes % (Manual) Eosinophils % (Manual) Basophils % (Manual) Nucleated RBC % Seg Neutrophils # Seg Neutrophils # Man Lymphocytes # (Manual) Monocytes # (Manual) Eosinophils # (Manual) Basophils # (Manual) PT INR Fibrinogen dRVVT Confirm Interp Factor V Activity POC ABG pH POC ABG pCO2 POC ABG pO2 ABG pO2 ABG HCO3 ABG Base Excess ABG Hemoglobin Oxyhemoglobin Sodium Potassium Chloride Carbon Dioxide BUN Creatinine Glucose POC Glucose 108 H Lactic Acid Calcium Phosphorus Magnesium 1.60 L Direct Bilirubin AST ALT Alkaline Phosphatase Lactate Dehydrogenase Troponin T C-Reactive Protein Total Protein Albumin Prealbumin Triglycerides Cholesterol LDL Cholesterol Direct HDL Cholesterol PTH Intact Urine pH Urine WBC (Auto) Urine Creatinine Urine Total Protein Fluid Total Protein Vancomycin Trough Rheumatoid Factor Complement C4 Miscellaneous Test Crossmatch See Detail 11/25/16 11/25/16 11/25/16 00:03 04:42 04:42 WBC RBC 3.03 L Hgb 8.6 L Hct 25.3 L MCV MCH MCHC RDW 16.2 H Plt Count Lymph % (Auto) Brown % (Auto) 8.1 H Lymph # Brown # Baso # Seg Neutrophils % 71.3 H Seg Neuts % (Manual) Lymphocytes % (Manual) Monocytes % (Manual) Eosinophils % (Manual) Basophils % (Manual) Nucleated RBC % Seg Neutrophils # Seg Neutrophils # Man Lymphocytes # (Manual) Monocytes # (Manual) Eosinophils # (Manual) Basophils # (Manual) PT INR Fibrinogen dRVVT Confirm Interp Factor V Activity POC ABG pH POC ABG pCO2 POC ABG pO2 ABG pO2 ABG HCO3 ABG Base Excess ABG Hemoglobin Oxyhemoglobin Sodium Potassium Chloride Carbon Dioxide BUN 61 H Creatinine 3.0 H Glucose 102 H POC Glucose 113 H Lactic Acid Calcium 8.2 L Phosphorus Magnesium Direct Bilirubin AST ALT Alkaline Phosphatase 142 H Lactate Dehydrogenase Troponin T C-Reactive Protein Total Protein 5.7 L Albumin 1.5 L Prealbumin Triglycerides Cholesterol LDL Cholesterol Direct HDL Cholesterol PTH Intact Urine pH Urine WBC (Auto) Urine Creatinine Urine Total Protein Fluid Total Protein Vancomycin Trough Rheumatoid Factor Complement C4 Miscellaneous Test Crossmatch 11/25/16 11/25/16 11/25/16 05:12 11:31 14:12 WBC RBC Hgb Hct MCV MCH MCHC RDW Plt Count Lymph % (Auto) Brown % (Auto) Lymph # Brown # Baso # Seg Neutrophils % Seg Neuts % (Manual) Lymphocytes % (Manual) Monocytes % (Manual) Eosinophils % (Manual) Basophils % (Manual) Nucleated RBC % Seg Neutrophils # Seg Neutrophils # Man Lymphocytes # (Manual) Monocytes # (Manual) Eosinophils # (Manual) Basophils # (Manual) PT INR Fibrinogen dRVVT Confirm Interp Factor V Activity POC ABG pH 7.487 H POC ABG pCO2 POC ABG pO2 153 H ABG pO2 ABG HCO3 ABG Base Excess ABG Hemoglobin Oxyhemoglobin Sodium Potassium Chloride Carbon Dioxide BUN Creatinine Glucose POC Glucose 131 H 140 H Lactic Acid Calcium Phosphorus Magnesium Direct Bilirubin AST ALT Alkaline Phosphatase Lactate Dehydrogenase Troponin T C-Reactive Protein Total Protein Albumin Prealbumin Triglycerides Cholesterol LDL Cholesterol Direct HDL Cholesterol PTH Intact Urine pH Urine WBC (Auto) Urine Creatinine Urine Total Protein Fluid Total Protein Vancomycin Trough Rheumatoid Factor Complement C4 Miscellaneous Test Crossmatch 11/25/16 11/26/16 11/26/16 17:23 00:09 05:13 WBC RBC 2.94 L Hgb 8.4 L Hct 24.6 L MCV MCH MCHC RDW 16.4 H Plt Count Lymph % (Auto) Brown % (Auto) 12.3 H Lymph # Brown # 1.1 H Baso # Seg Neutrophils % Seg Neuts % (Manual) Lymphocytes % (Manual) Monocytes % (Manual) Eosinophils % (Manual) Basophils % (Manual) Nucleated RBC % Seg Neutrophils # Seg Neutrophils # Man Lymphocytes # (Manual) Monocytes # (Manual) Eosinophils # (Manual) Basophils # (Manual) PT INR Fibrinogen dRVVT Confirm Interp Factor V Activity POC ABG pH POC ABG pCO2 POC ABG pO2 ABG pO2 ABG HCO3 ABG Base Excess ABG Hemoglobin Oxyhemoglobin Sodium Potassium Chloride Carbon Dioxide BUN Creatinine Glucose POC Glucose 146 H 112 H Lactic Acid Calcium Phosphorus Magnesium Direct Bilirubin AST ALT Alkaline Phosphatase Lactate Dehydrogenase Troponin T C-Reactive Protein Total Protein Albumin Prealbumin Triglycerides Cholesterol LDL Cholesterol Direct HDL Cholesterol PTH Intact Urine pH Urine WBC (Auto) Urine Creatinine Urine Total Protein Fluid Total Protein Vancomycin Trough Rheumatoid Factor Complement C4 Miscellaneous Test Crossmatch 11/26/16 11/26/16 11/26/16 05:13 05:28 11:53 WBC RBC Hgb Hct MCV MCH MCHC RDW Plt Count Lymph % (Auto) Brown % (Auto) Lymph # Brown # Baso # Seg Neutrophils % Seg Neuts % (Manual) Lymphocytes % (Manual) Monocytes % (Manual) Eosinophils % (Manual) Basophils % (Manual) Nucleated RBC % Seg Neutrophils # Seg Neutrophils # Man Lymphocytes # (Manual) Monocytes # (Manual) Eosinophils # (Manual) Basophils # (Manual) PT INR Fibrinogen dRVVT Confirm Interp Factor V Activity POC ABG pH POC ABG pCO2 POC ABG pO2 ABG pO2 ABG HCO3 ABG Base Excess ABG Hemoglobin Oxyhemoglobin Sodium Potassium Chloride 97.8 L Carbon Dioxide BUN 37 H Creatinine 2.0 H Glucose 109 H POC Glucose 117 H 111 H Lactic Acid Calcium 7.9 L Phosphorus 1.80 L D Magnesium Direct Bilirubin AST ALT Alkaline Phosphatase Lactate Dehydrogenase Troponin T C-Reactive Protein Total Protein Albumin Prealbumin Triglycerides Cholesterol LDL Cholesterol Direct HDL Cholesterol PTH Intact Urine pH Urine WBC (Auto) Urine Creatinine Urine Total Protein Fluid Total Protein Vancomycin Trough Rheumatoid Factor Complement C4 Miscellaneous Test Crossmatch 11/26/16 11/27/16 11/27/16 17:14 04:50 06:02 WBC RBC Hgb Hct MCV MCH MCHC RDW Plt Count Lymph % (Auto) Brown % (Auto) Lymph # Brown # Baso # Seg Neutrophils % Seg Neuts % (Manual) Lymphocytes % (Manual) Monocytes % (Manual) Eosinophils % (Manual) Basophils % (Manual) Nucleated RBC % Seg Neutrophils # Seg Neutrophils # Man Lymphocytes # (Manual) Monocytes # (Manual) Eosinophils # (Manual) Basophils # (Manual) PT INR Fibrinogen dRVVT Confirm Interp Factor V Activity POC ABG pH POC ABG pCO2 POC ABG pO2 ABG pO2 75.2 L ABG HCO3 26.4 H ABG Base Excess ABG Hemoglobin 7.6 L Oxyhemoglobin 94.8 L Sodium Potassium Chloride Carbon Dioxide BUN 49 H Creatinine 2.3 H Glucose POC Glucose 115 H Lactic Acid Calcium Phosphorus 1.50 L Magnesium Direct Bilirubin AST ALT Alkaline Phosphatase Lactate Dehydrogenase Troponin T C-Reactive Protein Total Protein Albumin Prealbumin Triglycerides Cholesterol LDL Cholesterol Direct HDL Cholesterol PTH Intact Urine pH Urine WBC (Auto) Urine Creatinine Urine Total Protein Fluid Total Protein Vancomycin Trough Rheumatoid Factor Complement C4 Miscellaneous Test Crossmatch 11/27/16 11/27/16 11/27/16 06:02 11:25 17:25 WBC 11.6 H RBC 2.75 L Hgb 7.6 L Hct 23.4 L MCV MCH MCHC RDW 16.5 H Plt Count Lymph % (Auto) Brown % (Auto) Lymph # Brown # Baso # Seg Neutrophils % Seg Neuts % (Manual) Lymphocytes % (Manual) Monocytes % (Manual) Eosinophils % (Manual) Basophils % (Manual) Nucleated RBC % Seg Neutrophils # Seg Neutrophils # Man Lymphocytes # (Manual) Monocytes # (Manual) Eosinophils # (Manual) Basophils # (Manual) PT INR Fibrinogen dRVVT Confirm Interp Factor V Activity POC ABG pH POC ABG pCO2 POC ABG pO2 ABG pO2 ABG HCO3 ABG Base Excess ABG Hemoglobin Oxyhemoglobin Sodium Potassium Chloride Carbon Dioxide BUN Creatinine Glucose POC Glucose 114 H 126 H Lactic Acid Calcium Phosphorus Magnesium Direct Bilirubin AST ALT Alkaline Phosphatase Lactate Dehydrogenase Troponin T C-Reactive Protein Total Protein Albumin Prealbumin Triglycerides Cholesterol LDL Cholesterol Direct HDL Cholesterol PTH Intact Urine pH Urine WBC (Auto) Urine Creatinine Urine Total Protein Fluid Total Protein Vancomycin Trough Rheumatoid Factor Complement C4 Miscellaneous Test Crossmatch 11/28/16 11/28/16 11/28/16 04:45 05:33 05:44 WBC RBC Hgb Hct MCV MCH MCHC RDW Plt Count Lymph % (Auto) Brown % (Auto) Lymph # Brown # Baso # Seg Neutrophils % Seg Neuts % (Manual) Lymphocytes % (Manual) Monocytes % (Manual) Eosinophils % (Manual) Basophils % (Manual) Nucleated RBC % Seg Neutrophils # Seg Neutrophils # Man Lymphocytes # (Manual) Monocytes # (Manual) Eosinophils # (Manual) Basophils # (Manual) PT INR Fibrinogen dRVVT Confirm Interp Factor V Activity POC ABG pH POC ABG pCO2 POC ABG pO2 ABG pO2 99.3 H ABG HCO3 ABG Base Excess ABG Hemoglobin 8.3 L Oxyhemoglobin Sodium Potassium Chloride Carbon Dioxide BUN 63 H Creatinine 2.4 H Glucose 102 H POC Glucose 108 H Lactic Acid Calcium Phosphorus 1.80 L Magnesium Direct Bilirubin AST ALT Alkaline Phosphatase Lactate Dehydrogenase Troponin T C-Reactive Protein Total Protein Albumin Prealbumin Triglycerides Cholesterol LDL Cholesterol Direct HDL Cholesterol PTH Intact Urine pH Urine WBC (Auto) Urine Creatinine Urine Total Protein Fluid Total Protein Vancomycin Trough Rheumatoid Factor Complement C4 Miscellaneous Test Crossmatch 11/28/16 11/28/16 11/28/16 12:31 16:09 23:46 WBC RBC Hgb Hct MCV MCH MCHC RDW Plt Count Lymph % (Auto) Brown % (Auto) Lymph # Brown # Baso # Seg Neutrophils % Seg Neuts % (Manual) Lymphocytes % (Manual) Monocytes % (Manual) Eosinophils % (Manual) Basophils % (Manual) Nucleated RBC % Seg Neutrophils # Seg Neutrophils # Man Lymphocytes # (Manual) Monocytes # (Manual) Eosinophils # (Manual) Basophils # (Manual) PT INR Fibrinogen dRVVT Confirm Interp Factor V Activity POC ABG pH POC ABG pCO2 POC ABG pO2 ABG pO2 ABG HCO3 ABG Base Excess ABG Hemoglobin Oxyhemoglobin Sodium Potassium Chloride Carbon Dioxide BUN Creatinine Glucose POC Glucose 126 H 111 H 119 H Lactic Acid Calcium Phosphorus Magnesium Direct Bilirubin AST ALT Alkaline Phosphatase Lactate Dehydrogenase Troponin T C-Reactive Protein Total Protein Albumin Prealbumin Triglycerides Cholesterol LDL Cholesterol Direct HDL Cholesterol PTH Intact Urine pH Urine WBC (Auto) Urine Creatinine Urine Total Protein Fluid Total Protein Vancomycin Trough Rheumatoid Factor Complement C4 Miscellaneous Test Crossmatch 11/29/16 11/29/16 11/29/16 03:33 04:52 05:10 WBC RBC Hgb Hct MCV MCH MCHC RDW Plt Count Lymph % (Auto) Brown % (Auto) Lymph # Brown # Baso # Seg Neutrophils % Seg Neuts % (Manual) Lymphocytes % (Manual) Monocytes % (Manual) Eosinophils % (Manual) Basophils % (Manual) Nucleated RBC % Seg Neutrophils # Seg Neutrophils # Man Lymphocytes # (Manual) Monocytes # (Manual) Eosinophils # (Manual) Basophils # (Manual) PT INR Fibrinogen dRVVT Confirm Interp Factor V Activity POC ABG pH POC ABG pCO2 POC ABG pO2 ABG pO2 ABG HCO3 ABG Base Excess ABG Hemoglobin 7.0 L Oxyhemoglobin 94.9 L Sodium Potassium Chloride Carbon Dioxide BUN 73 H Creatinine 2.7 H Glucose POC Glucose 108 H Lactic Acid Calcium Phosphorus Magnesium Direct Bilirubin AST ALT Alkaline Phosphatase Lactate Dehydrogenase Troponin T C-Reactive Protein Total Protein Albumin Prealbumin Triglycerides Cholesterol LDL Cholesterol Direct HDL Cholesterol PTH Intact Urine pH Urine WBC (Auto) Urine Creatinine Urine Total Protein Fluid Total Protein Vancomycin Trough Rheumatoid Factor Complement C4 Miscellaneous Test Crossmatch 11/29/16 11/29/16 11/29/16 12:16 18:05 23:46 WBC RBC Hgb Hct MCV MCH MCHC RDW Plt Count Lymph % (Auto) Brown % (Auto) Lymph # Brown # Baso # Seg Neutrophils % Seg Neuts % (Manual) Lymphocytes % (Manual) Monocytes % (Manual) Eosinophils % (Manual) Basophils % (Manual) Nucleated RBC % Seg Neutrophils # Seg Neutrophils # Man Lymphocytes # (Manual) Monocytes # (Manual) Eosinophils # (Manual) Basophils # (Manual) PT INR Fibrinogen dRVVT Confirm Interp Factor V Activity POC ABG pH POC ABG pCO2 POC ABG pO2 ABG pO2 ABG HCO3 ABG Base Excess ABG Hemoglobin Oxyhemoglobin Sodium Potassium Chloride Carbon Dioxide BUN Creatinine Glucose POC Glucose 133 H 146 H 141 H Lactic Acid Calcium Phosphorus Magnesium Direct Bilirubin AST ALT Alkaline Phosphatase Lactate Dehydrogenase Troponin T C-Reactive Protein Total Protein Albumin Prealbumin Triglycerides Cholesterol LDL Cholesterol Direct HDL Cholesterol PTH Intact Urine pH Urine WBC (Auto) Urine Creatinine Urine Total Protein Fluid Total Protein Vancomycin Trough Rheumatoid Factor Complement C4 Miscellaneous Test Crossmatch 11/30/16 11/30/16 11/30/16 04:17 04:17 04:32 WBC 12.0 H RBC 2.80 L Hgb 7.8 L Hct 23.6 L MCV MCH MCHC RDW 16.6 H Plt Count Lymph % (Auto) Brown % (Auto) 11.3 H Lymph # Brown # 1.4 H Baso # Seg Neutrophils % Seg Neuts % (Manual) Lymphocytes % (Manual) Monocytes % (Manual) Eosinophils % (Manual) Basophils % (Manual) Nucleated RBC % Seg Neutrophils # 8.2 H Seg Neutrophils # Man Lymphocytes # (Manual) Monocytes # (Manual) Eosinophils # (Manual) Basophils # (Manual) PT INR Fibrinogen dRVVT Confirm Interp Factor V Activity POC ABG pH POC ABG pCO2 POC ABG pO2 ABG pO2 ABG HCO3 ABG Base Excess ABG Hemoglobin Oxyhemoglobin Sodium 169 H* D Potassium 5.1 H Chloride 121.5 H Carbon Dioxide BUN 34 H Creatinine 1.3 H D Glucose 133 H POC Glucose 131 H Lactic Acid Calcium 10.3 H Phosphorus Magnesium Direct Bilirubin AST ALT Alkaline Phosphatase Lactate Dehydrogenase Troponin T C-Reactive Protein Total Protein Albumin Prealbumin Triglycerides Cholesterol LDL Cholesterol Direct HDL Cholesterol PTH Intact Urine pH Urine WBC (Auto) Urine Creatinine Urine Total Protein Fluid Total Protein Vancomycin Trough Rheumatoid Factor Complement C4 Miscellaneous Test Crossmatch 11/30/16 11/30/16 11/30/16 05:45 11:10 17:26 WBC RBC Hgb Hct MCV MCH MCHC RDW Plt Count Lymph % (Auto) Brown % (Auto) Lymph # Brown # Baso # Seg Neutrophils % Seg Neuts % (Manual) Lymphocytes % (Manual) Monocytes % (Manual) Eosinophils % (Manual) Basophils % (Manual) Nucleated RBC % Seg Neutrophils # Seg Neutrophils # Man Lymphocytes # (Manual) Monocytes # (Manual) Eosinophils # (Manual) Basophils # (Manual) PT INR Fibrinogen dRVVT Confirm Interp Factor V Activity POC ABG pH POC ABG pCO2 POC ABG pO2 ABG pO2 ABG HCO3 ABG Base Excess ABG Hemoglobin Oxyhemoglobin Sodium Potassium Chloride Carbon Dioxide BUN 45 H Creatinine 1.6 H Glucose 131 H POC Glucose 146 H 134 H Lactic Acid Calcium Phosphorus Magnesium Direct Bilirubin AST ALT Alkaline Phosphatase Lactate Dehydrogenase Troponin T C-Reactive Protein Total Protein Albumin Prealbumin Triglycerides Cholesterol LDL Cholesterol Direct HDL Cholesterol PTH Intact Urine pH Urine WBC (Auto) Urine Creatinine Urine Total Protein Fluid Total Protein Vancomycin Trough Rheumatoid Factor Complement C4 Miscellaneous Test Crossmatch 11/30/16 12/01/16 12/01/16 23:35 00:06 03:35 WBC RBC Hgb Hct MCV MCH MCHC RDW Plt Count Lymph % (Auto) Brown % (Auto) Lymph # Brown # Baso # Seg Neutrophils % Seg Neuts % (Manual) Lymphocytes % (Manual) Monocytes % (Manual) Eosinophils % (Manual) Basophils % (Manual) Nucleated RBC % Seg Neutrophils # Seg Neutrophils # Man Lymphocytes # (Manual) Monocytes # (Manual) Eosinophils # (Manual) Basophils # (Manual) PT INR Fibrinogen dRVVT Confirm Interp Factor V Activity POC ABG pH POC ABG pCO2 POC ABG pO2 ABG pO2 ABG HCO3 ABG Base Excess ABG Hemoglobin 6.9 L Oxyhemoglobin Sodium Potassium Chloride Carbon Dioxide BUN 58 H Creatinine 1.8 H Glucose 146 H POC Glucose 151 H Lactic Acid Calcium Phosphorus Magnesium Direct Bilirubin AST ALT Alkaline Phosphatase Lactate Dehydrogenase Troponin T C-Reactive Protein Total Protein Albumin Prealbumin Triglycerides Cholesterol LDL Cholesterol Direct HDL Cholesterol PTH Intact Urine pH Urine WBC (Auto) Urine Creatinine Urine Total Protein Fluid Total Protein Vancomycin Trough Rheumatoid Factor Complement C4 Miscellaneous Test Crossmatch 12/01/16 12/01/16 12/01/16 03:35 05:47 11:52 WBC 12.3 H RBC 2.82 L Hgb 7.8 L Hct 23.7 L MCV MCH MCHC RDW 16.7 H Plt Count Lymph % (Auto) Brown % (Auto) 9.8 H Lymph # Brown # 1.2 H Baso # Seg Neutrophils % Seg Neuts % (Manual) Lymphocytes % (Manual) Monocytes % (Manual) Eosinophils % (Manual) Basophils % (Manual) Nucleated RBC % Seg Neutrophils # 8.4 H Seg Neutrophils # Man Lymphocytes # (Manual) Monocytes # (Manual) Eosinophils # (Manual) Basophils # (Manual) PT INR Fibrinogen dRVVT Confirm Interp Factor V Activity POC ABG pH POC ABG pCO2 POC ABG pO2 ABG pO2 ABG HCO3 ABG Base Excess ABG Hemoglobin Oxyhemoglobin Sodium Potassium Chloride Carbon Dioxide BUN Creatinine Glucose POC Glucose 152 H 152 H Lactic Acid Calcium Phosphorus Magnesium Direct Bilirubin AST ALT Alkaline Phosphatase Lactate Dehydrogenase Troponin T C-Reactive Protein Total Protein Albumin Prealbumin Triglycerides Cholesterol LDL Cholesterol Direct HDL Cholesterol PTH Intact Urine pH Urine WBC (Auto) Urine Creatinine Urine Total Protein Fluid Total Protein Vancomycin Trough Rheumatoid Factor Complement C4 Miscellaneous Test Crossmatch 12/01/16 12/01/16 12/02/16 17:40 23:41 05:00 WBC RBC Hgb Hct MCV MCH MCHC RDW Plt Count Lymph % (Auto) Brown % (Auto) Lymph # Brown # Baso # Seg Neutrophils % Seg Neuts % (Manual) Lymphocytes % (Manual) Monocytes % (Manual) Eosinophils % (Manual) Basophils % (Manual) Nucleated RBC % Seg Neutrophils # Seg Neutrophils # Man Lymphocytes # (Manual) Monocytes # (Manual) Eosinophils # (Manual) Basophils # (Manual) PT INR Fibrinogen dRVVT Confirm Interp Factor V Activity POC ABG pH POC ABG pCO2 POC ABG pO2 ABG pO2 ABG HCO3 ABG Base Excess ABG Hemoglobin Oxyhemoglobin Sodium Potassium Chloride Carbon Dioxide BUN 45 H Creatinine Glucose 115 H POC Glucose 140 H 144 H Lactic Acid Calcium Phosphorus Magnesium Direct Bilirubin AST ALT Alkaline Phosphatase Lactate Dehydrogenase Troponin T C-Reactive Protein Total Protein Albumin Prealbumin Triglycerides Cholesterol LDL Cholesterol Direct HDL Cholesterol PTH Intact Urine pH Urine WBC (Auto) Urine Creatinine Urine Total Protein Fluid Total Protein Vancomycin Trough Rheumatoid Factor Complement C4 Miscellaneous Test Crossmatch 12/02/16 12/02/16 12/02/16 05:31 11:20 17:38 WBC RBC Hgb Hct MCV MCH MCHC RDW Plt Count Lymph % (Auto) Brown % (Auto) Lymph # Brown # Baso # Seg Neutrophils % Seg Neuts % (Manual) Lymphocytes % (Manual) Monocytes % (Manual) Eosinophils % (Manual) Basophils % (Manual) Nucleated RBC % Seg Neutrophils # Seg Neutrophils # Man Lymphocytes # (Manual) Monocytes # (Manual) Eosinophils # (Manual) Basophils # (Manual) PT INR Fibrinogen dRVVT Confirm Interp Factor V Activity POC ABG pH POC ABG pCO2 POC ABG pO2 ABG pO2 ABG HCO3 ABG Base Excess ABG Hemoglobin Oxyhemoglobin Sodium Potassium Chloride Carbon Dioxide BUN Creatinine Glucose POC Glucose 136 H 177 H 139 H Lactic Acid Calcium Phosphorus Magnesium Direct Bilirubin AST ALT Alkaline Phosphatase Lactate Dehydrogenase Troponin T C-Reactive Protein Total Protein Albumin Prealbumin Triglycerides Cholesterol LDL Cholesterol Direct HDL Cholesterol PTH Intact Urine pH Urine WBC (Auto) Urine Creatinine Urine Total Protein Fluid Total Protein Vancomycin Trough Rheumatoid Factor Complement C4 Miscellaneous Test Crossmatch 12/02/16 12/03/16 12/03/16 23:43 04:00 04:00 WBC 20.4 H RBC 2.74 L Hgb 7.4 L Hct 23.6 L MCV MCH 27 L MCHC RDW 17.1 H Plt Count Lymph % (Auto) Brown % (Auto) Lymph # Brown # Baso # Seg Neutrophils % Seg Neuts % (Manual) 31.0 L Lymphocytes % (Manual) Monocytes % (Manual) Eosinophils % (Manual) Basophils % (Manual) Nucleated RBC % Seg Neutrophils # Seg Neutrophils # Man Lymphocytes # (Manual) Monocytes # (Manual) Eosinophils # (Manual) Basophils # (Manual) PT INR Fibrinogen dRVVT Confirm Interp Factor V Activity POC ABG pH POC ABG pCO2 POC ABG pO2 ABG pO2 ABG HCO3 ABG Base Excess ABG Hemoglobin Oxyhemoglobin Sodium Potassium Chloride Carbon Dioxide BUN 61 H Creatinine 1.6 H Glucose 119 H POC Glucose 158 H Lactic Acid Calcium Phosphorus Magnesium Direct Bilirubin AST ALT Alkaline Phosphatase Lactate Dehydrogenase Troponin T C-Reactive Protein Total Protein Albumin Prealbumin Triglycerides Cholesterol LDL Cholesterol Direct HDL Cholesterol PTH Intact Urine pH Urine WBC (Auto) Urine Creatinine Urine Total Protein Fluid Total Protein Vancomycin Trough Rheumatoid Factor Complement C4 Miscellaneous Test Crossmatch 12/03/16 12/03/16 12/03/16 05:02 12:11 18:16 WBC RBC Hgb Hct MCV MCH MCHC RDW Plt Count Lymph % (Auto) Brown % (Auto) Lymph # Brown # Baso # Seg Neutrophils % Seg Neuts % (Manual) Lymphocytes % (Manual) Monocytes % (Manual) Eosinophils % (Manual) Basophils % (Manual) Nucleated RBC % Seg Neutrophils # Seg Neutrophils # Man Lymphocytes # (Manual) Monocytes # (Manual) Eosinophils # (Manual) Basophils # (Manual) PT INR Fibrinogen dRVVT Confirm Interp Factor V Activity POC ABG pH POC ABG pCO2 POC ABG pO2 ABG pO2 ABG HCO3 ABG Base Excess ABG Hemoglobin Oxyhemoglobin Sodium Potassium Chloride Carbon Dioxide BUN Creatinine Glucose POC Glucose 146 H 157 H 124 H Lactic Acid Calcium Phosphorus Magnesium Direct Bilirubin AST ALT Alkaline Phosphatase Lactate Dehydrogenase Troponin T C-Reactive Protein Total Protein Albumin Prealbumin Triglycerides Cholesterol LDL Cholesterol Direct HDL Cholesterol PTH Intact Urine pH Urine WBC (Auto) Urine Creatinine Urine Total Protein Fluid Total Protein Vancomycin Trough Rheumatoid Factor Complement C4 Miscellaneous Test Crossmatch 12/03/16 12/04/16 12/04/16 23:41 04:00 04:45 WBC RBC Hgb Hct MCV MCH MCHC RDW Plt Count Lymph % (Auto) Brown % (Auto) Lymph # Brown # Baso # Seg Neutrophils % Seg Neuts % (Manual) Lymphocytes % (Manual) Monocytes % (Manual) Eosinophils % (Manual) Basophils % (Manual) Nucleated RBC % Seg Neutrophils # Seg Neutrophils # Man Lymphocytes # (Manual) Monocytes # (Manual) Eosinophils # (Manual) Basophils # (Manual) PT INR Fibrinogen dRVVT Confirm Interp Factor V Activity POC ABG pH POC ABG pCO2 POC ABG pO2 ABG pO2 ABG HCO3 ABG Base Excess ABG Hemoglobin Oxyhemoglobin Sodium Potassium Chloride Carbon Dioxide BUN 76 H Creatinine 1.6 H Glucose POC Glucose 130 H 136 H Lactic Acid Calcium Phosphorus Magnesium Direct Bilirubin AST ALT Alkaline Phosphatase 155 H Lactate Dehydrogenase Troponin T C-Reactive Protein Total Protein 5.5 L Albumin 1.5 L Prealbumin Triglycerides Cholesterol LDL Cholesterol Direct HDL Cholesterol PTH Intact Urine pH Urine WBC (Auto) Urine Creatinine Urine Total Protein Fluid Total Protein Vancomycin Trough Rheumatoid Factor Complement C4 Miscellaneous Test Crossmatch 12/04/16 12/04/16 12/05/16 12:08 17:23 00:10 WBC RBC Hgb Hct MCV MCH MCHC RDW Plt Count Lymph % (Auto) Brown % (Auto) Lymph # Brown # Baso # Seg Neutrophils % Seg Neuts % (Manual) Lymphocytes % (Manual) Monocytes % (Manual) Eosinophils % (Manual) Basophils % (Manual) Nucleated RBC % Seg Neutrophils # Seg Neutrophils # Man Lymphocytes # (Manual) Monocytes # (Manual) Eosinophils # (Manual) Basophils # (Manual) PT INR Fibrinogen dRVVT Confirm Interp Factor V Activity POC ABG pH POC ABG pCO2 POC ABG pO2 ABG pO2 ABG HCO3 ABG Base Excess ABG Hemoglobin Oxyhemoglobin Sodium Potassium Chloride Carbon Dioxide BUN Creatinine Glucose POC Glucose 114 H 129 H 124 H Lactic Acid Calcium Phosphorus Magnesium Direct Bilirubin AST ALT Alkaline Phosphatase Lactate Dehydrogenase Troponin T C-Reactive Protein Total Protein Albumin Prealbumin Triglycerides Cholesterol LDL Cholesterol Direct HDL Cholesterol PTH Intact Urine pH Urine WBC (Auto) Urine Creatinine Urine Total Protein Fluid Total Protein Vancomycin Trough Rheumatoid Factor Complement C4 Miscellaneous Test Crossmatch 12/05/16 12/05/16 12/05/16 05:00 05:00 05:18 WBC RBC Hgb Hct MCV MCH MCHC RDW Plt Count Lymph % (Auto) Brown % (Auto) Lymph # Brown # Baso # Seg Neutrophils % Seg Neuts % (Manual) Lymphocytes % (Manual) Monocytes % (Manual) Eosinophils % (Manual) Basophils % (Manual) Nucleated RBC % Seg Neutrophils # Seg Neutrophils # Man Lymphocytes # (Manual) Monocytes # (Manual) Eosinophils # (Manual) Basophils # (Manual) PT INR Fibrinogen dRVVT Confirm Interp Factor V Activity POC ABG pH POC ABG pCO2 POC ABG pO2 ABG pO2 ABG HCO3 ABG Base Excess ABG Hemoglobin Oxyhemoglobin Sodium Potassium Chloride Carbon Dioxide 21 L BUN 85 H Creatinine 1.9 H Glucose 131 H POC Glucose 154 H Lactic Acid Calcium Phosphorus Magnesium Direct Bilirubin AST ALT Alkaline Phosphatase Lactate Dehydrogenase Troponin T C-Reactive Protein 19.30 H Total Protein Albumin Prealbumin Triglycerides Cholesterol LDL Cholesterol Direct HDL Cholesterol PTH Intact Urine pH Urine WBC (Auto) Urine Creatinine Urine Total Protein Fluid Total Protein Vancomycin Trough Rheumatoid Factor Complement C4 Miscellaneous Test Crossmatch 12/05/16 12/05/16 12/05/16 11:43 17:46 23:25 WBC RBC Hgb Hct MCV MCH MCHC RDW Plt Count Lymph % (Auto) Brown % (Auto) Lymph # Brown # Baso # Seg Neutrophils % Seg Neuts % (Manual) Lymphocytes % (Manual) Monocytes % (Manual) Eosinophils % (Manual) Basophils % (Manual) Nucleated RBC % Seg Neutrophils # Seg Neutrophils # Man Lymphocytes # (Manual) Monocytes # (Manual) Eosinophils # (Manual) Basophils # (Manual) PT INR Fibrinogen dRVVT Confirm Interp Factor V Activity POC ABG pH POC ABG pCO2 POC ABG pO2 ABG pO2 ABG HCO3 ABG Base Excess ABG Hemoglobin Oxyhemoglobin Sodium Potassium Chloride Carbon Dioxide BUN Creatinine Glucose POC Glucose 117 H 113 H 111 H Lactic Acid Calcium Phosphorus Magnesium Direct Bilirubin AST ALT Alkaline Phosphatase Lactate Dehydrogenase Troponin T C-Reactive Protein Total Protein Albumin Prealbumin Triglycerides Cholesterol LDL Cholesterol Direct HDL Cholesterol PTH Intact Urine pH Urine WBC (Auto) Urine Creatinine Urine Total Protein Fluid Total Protein Vancomycin Trough Rheumatoid Factor Complement C4 Miscellaneous Test Crossmatch 12/05/16 12/06/16 12/06/16 Unknown 04:58 06:00 WBC RBC Hgb Hct MCV MCH MCHC RDW Plt Count Lymph % (Auto) Brown % (Auto) Lymph # Brown # Baso # Seg Neutrophils % Seg Neuts % (Manual) Lymphocytes % (Manual) Monocytes % (Manual) Eosinophils % (Manual) Basophils % (Manual) Nucleated RBC % Seg Neutrophils # Seg Neutrophils # Man Lymphocytes # (Manual) Monocytes # (Manual) Eosinophils # (Manual) Basophils # (Manual) PT INR Fibrinogen dRVVT Confirm Interp Factor V Activity POC ABG pH POC ABG pCO2 POC ABG pO2 ABG pO2 75.2 L ABG HCO3 ABG Base Excess -3.4 L ABG Hemoglobin 7.4 L Oxyhemoglobin 94.5 L Sodium Potassium Chloride Carbon Dioxide 20 L BUN 99 H Creatinine 2.1 H Glucose 126 H POC Glucose 145 H Lactic Acid Calcium Phosphorus 4.80 H Magnesium Direct Bilirubin AST ALT Alkaline Phosphatase Lactate Dehydrogenase Troponin T C-Reactive Protein Total Protein Albumin Prealbumin Triglycerides Cholesterol LDL Cholesterol Direct HDL Cholesterol PTH Intact Urine pH Urine WBC (Auto) Urine Creatinine Urine Total Protein Fluid Total Protein Vancomycin Trough Rheumatoid Factor Complement C4 Miscellaneous Test Crossmatch 12/06/16 12/06/16 12/06/16 06:46 11:54 17:55 WBC RBC Hgb 8.3 L Hct 26.4 L MCV MCH MCHC RDW Plt Count Lymph % (Auto) Brown % (Auto) Lymph # Brown # Baso # Seg Neutrophils % Seg Neuts % (Manual) Lymphocytes % (Manual) Monocytes % (Manual) Eosinophils % (Manual) Basophils % (Manual) Nucleated RBC % Seg Neutrophils # Seg Neutrophils # Man Lymphocytes # (Manual) Monocytes # (Manual) Eosinophils # (Manual) Basophils # (Manual) PT INR Fibrinogen dRVVT Confirm Interp Factor V Activity POC ABG pH POC ABG pCO2 POC ABG pO2 ABG pO2 ABG HCO3 ABG Base Excess ABG Hemoglobin Oxyhemoglobin Sodium Potassium Chloride Carbon Dioxide BUN Creatinine Glucose POC Glucose 126 H 157 H Lactic Acid Calcium Phosphorus Magnesium Direct Bilirubin AST ALT Alkaline Phosphatase Lactate Dehydrogenase Troponin T C-Reactive Protein Total Protein Albumin Prealbumin Triglycerides Cholesterol LDL Cholesterol Direct HDL Cholesterol PTH Intact Urine pH Urine WBC (Auto) Urine Creatinine Urine Total Protein Fluid Total Protein Vancomycin Trough Rheumatoid Factor Complement C4 Miscellaneous Test Crossmatch 12/06/16 12/07/16 12/07/16 23:59 05:34 06:30 WBC RBC Hgb Hct MCV MCH MCHC RDW Plt Count Lymph % (Auto) Brown % (Auto) Lymph # Brown # Baso # Seg Neutrophils % Seg Neuts % (Manual) Lymphocytes % (Manual) Monocytes % (Manual) Eosinophils % (Manual) Basophils % (Manual) Nucleated RBC % Seg Neutrophils # Seg Neutrophils # Man Lymphocytes # (Manual) Monocytes # (Manual) Eosinophils # (Manual) Basophils # (Manual) PT INR Fibrinogen dRVVT Confirm Interp Factor V Activity POC ABG pH POC ABG pCO2 POC ABG pO2 ABG pO2 ABG HCO3 ABG Base Excess ABG Hemoglobin Oxyhemoglobin Sodium Potassium Chloride Carbon Dioxide BUN 67 H Creatinine 1.4 H Glucose 126 H POC Glucose 129 H 129 H Lactic Acid Calcium Phosphorus Magnesium Direct Bilirubin AST ALT Alkaline Phosphatase Lactate Dehydrogenase Troponin T C-Reactive Protein Total Protein Albumin Prealbumin Triglycerides Cholesterol LDL Cholesterol Direct HDL Cholesterol PTH Intact Urine pH Urine WBC (Auto) Urine Creatinine Urine Total Protein Fluid Total Protein Vancomycin Trough Rheumatoid Factor Complement C4 Miscellaneous Test Crossmatch 12/07/16 12/07/16 12/07/16 06:30 08:00 09:45 WBC 18.8 H RBC 2.52 L Hgb 6.9 L 6.8 L Hct 21.2 L 21.1 L MCV MCH 27 L MCHC RDW 18.0 H Plt Count Lymph % (Auto) Brown % (Auto) 9.9 H Lymph # Brown # 1.9 H Baso # Seg Neutrophils % 71.8 H Seg Neuts % (Manual) Lymphocytes % (Manual) Monocytes % (Manual) Eosinophils % (Manual) Basophils % (Manual) Nucleated RBC % Seg Neutrophils # 13.5 H Seg Neutrophils # Man Lymphocytes # (Manual) Monocytes # (Manual) Eosinophils # (Manual) Basophils # (Manual) PT INR Fibrinogen dRVVT Confirm Interp Factor V Activity POC ABG pH POC ABG pCO2 POC ABG pO2 ABG pO2 ABG HCO3 ABG Base Excess ABG Hemoglobin Oxyhemoglobin Sodium Potassium Chloride Carbon Dioxide BUN Creatinine Glucose POC Glucose Lactic Acid Calcium Phosphorus Magnesium Direct Bilirubin AST ALT Alkaline Phosphatase Lactate Dehydrogenase Troponin T C-Reactive Protein Total Protein Albumin Prealbumin Triglycerides Cholesterol LDL Cholesterol Direct HDL Cholesterol PTH Intact Urine pH Urine WBC (Auto) Urine Creatinine Urine Total Protein Fluid Total Protein Vancomycin Trough Rheumatoid Factor Complement C4 Miscellaneous Test Crossmatch See Detail 12/07/16 12/07/16 12/07/16 11:44 18:19 23:59 WBC RBC Hgb Hct MCV MCH MCHC RDW Plt Count Lymph % (Auto) Brown % (Auto) Lymph # Brown # Baso # Seg Neutrophils % Seg Neuts % (Manual) Lymphocytes % (Manual) Monocytes % (Manual) Eosinophils % (Manual) Basophils % (Manual) Nucleated RBC % Seg Neutrophils # Seg Neutrophils # Man Lymphocytes # (Manual) Monocytes # (Manual) Eosinophils # (Manual) Basophils # (Manual) PT INR Fibrinogen dRVVT Confirm Interp Factor V Activity POC ABG pH POC ABG pCO2 POC ABG pO2 ABG pO2 ABG HCO3 ABG Base Excess ABG Hemoglobin Oxyhemoglobin Sodium Potassium Chloride Carbon Dioxide BUN Creatinine Glucose POC Glucose 137 H 138 H 133 H Lactic Acid Calcium Phosphorus Magnesium Direct Bilirubin AST ALT Alkaline Phosphatase Lactate Dehydrogenase Troponin T C-Reactive Protein Total Protein Albumin Prealbumin Triglycerides Cholesterol LDL Cholesterol Direct HDL Cholesterol PTH Intact Urine pH Urine WBC (Auto) Urine Creatinine Urine Total Protein Fluid Total Protein Vancomycin Trough Rheumatoid Factor Complement C4 Miscellaneous Test Crossmatch 12/08/16 12/08/16 12/08/16 05:25 05:30 05:30 WBC 23.8 H RBC 2.88 L Hgb 8.1 L Hct 24.3 L MCV MCH MCHC RDW 16.7 H Plt Count Lymph % (Auto) Brown % (Auto) Lymph # Brown # Baso # Seg Neutrophils % Seg Neuts % (Manual) 76.0 H Lymphocytes % (Manual) 9.0 L Monocytes % (Manual) 9.0 H Eosinophils % (Manual) Basophils % (Manual) Nucleated RBC % Seg Neutrophils # Seg Neutrophils # Man 18.1 H Lymphocytes # (Manual) Monocytes # (Manual) 2.1 H Eosinophils # (Manual) Basophils # (Manual) PT INR Fibrinogen dRVVT Confirm Interp Factor V Activity POC ABG pH POC ABG pCO2 POC ABG pO2 ABG pO2 ABG HCO3 ABG Base Excess ABG Hemoglobin Oxyhemoglobin Sodium Potassium Chloride Carbon Dioxide 21 L BUN 76 H Creatinine 1.6 H Glucose 133 H POC Glucose 177 H Lactic Acid Calcium Phosphorus Magnesium Direct Bilirubin AST ALT Alkaline Phosphatase Lactate Dehydrogenase Troponin T C-Reactive Protein Total Protein Albumin Prealbumin Triglycerides Cholesterol LDL Cholesterol Direct HDL Cholesterol PTH Intact Urine pH Urine WBC (Auto) Urine Creatinine Urine Total Protein Fluid Total Protein Vancomycin Trough Rheumatoid Factor Complement C4 Miscellaneous Test Crossmatch 12/08/16 12/08/16 12/09/16 11:45 18:00 00:00 WBC RBC Hgb Hct MCV MCH MCHC RDW Plt Count Lymph % (Auto) Brown % (Auto) Lymph # Brown # Baso # Seg Neutrophils % Seg Neuts % (Manual) Lymphocytes % (Manual) Monocytes % (Manual) Eosinophils % (Manual) Basophils % (Manual) Nucleated RBC % Seg Neutrophils # Seg Neutrophils # Man Lymphocytes # (Manual) Monocytes # (Manual) Eosinophils # (Manual) Basophils # (Manual) PT INR Fibrinogen dRVVT Confirm Interp Factor V Activity POC ABG pH POC ABG pCO2 POC ABG pO2 ABG pO2 ABG HCO3 ABG Base Excess ABG Hemoglobin Oxyhemoglobin Sodium Potassium Chloride Carbon Dioxide BUN Creatinine Glucose POC Glucose 163 H 123 H 137 H Lactic Acid Calcium Phosphorus Magnesium Direct Bilirubin AST ALT Alkaline Phosphatase Lactate Dehydrogenase Troponin T C-Reactive Protein Total Protein Albumin Prealbumin Triglycerides Cholesterol LDL Cholesterol Direct HDL Cholesterol PTH Intact Urine pH Urine WBC (Auto) Urine Creatinine Urine Total Protein Fluid Total Protein Vancomycin Trough Rheumatoid Factor Complement C4 Miscellaneous Test Crossmatch 12/09/16 12/09/16 12/09/16 05:34 06:00 06:00 WBC 15.5 H RBC 2.87 L Hgb 8.0 L Hct 24.2 L MCV MCH MCHC RDW 17.2 H Plt Count Lymph % (Auto) Brown % (Auto) 11.6 H Lymph # Brown # 1.8 H Baso # Seg Neutrophils % 70.8 H Seg Neuts % (Manual) Lymphocytes % (Manual) Monocytes % (Manual) Eosinophils % (Manual) Basophils % (Manual) Nucleated RBC % Seg Neutrophils # 11.0 H Seg Neutrophils # Man Lymphocytes # (Manual) Monocytes # (Manual) Eosinophils # (Manual) Basophils # (Manual) PT INR Fibrinogen dRVVT Confirm Interp Factor V Activity POC ABG pH POC ABG pCO2 POC ABG pO2 ABG pO2 ABG HCO3 ABG Base Excess ABG Hemoglobin Oxyhemoglobin Sodium Potassium Chloride Carbon Dioxide BUN 51 H Creatinine Glucose 117 H POC Glucose 136 H Lactic Acid Calcium Phosphorus Magnesium Direct Bilirubin AST ALT Alkaline Phosphatase Lactate Dehydrogenase Troponin T C-Reactive Protein Total Protein Albumin Prealbumin Triglycerides Cholesterol LDL Cholesterol Direct HDL Cholesterol PTH Intact Urine pH Urine WBC (Auto) Urine Creatinine Urine Total Protein Fluid Total Protein Vancomycin Trough Rheumatoid Factor Complement C4 Miscellaneous Test Crossmatch 12/09/16 12/09/16 12/09/16 12:29 17:52 23:10 WBC RBC Hgb Hct MCV MCH MCHC RDW Plt Count Lymph % (Auto) Brown % (Auto) Lymph # Brown # Baso # Seg Neutrophils % Seg Neuts % (Manual) Lymphocytes % (Manual) Monocytes % (Manual) Eosinophils % (Manual) Basophils % (Manual) Nucleated RBC % Seg Neutrophils # Seg Neutrophils # Man Lymphocytes # (Manual) Monocytes # (Manual) Eosinophils # (Manual) Basophils # (Manual) PT INR Fibrinogen dRVVT Confirm Interp Factor V Activity POC ABG pH POC ABG pCO2 POC ABG pO2 ABG pO2 ABG HCO3 ABG Base Excess ABG Hemoglobin Oxyhemoglobin Sodium Potassium Chloride Carbon Dioxide BUN Creatinine Glucose POC Glucose 139 H 140 H 129 H Lactic Acid Calcium Phosphorus Magnesium Direct Bilirubin AST ALT Alkaline Phosphatase Lactate Dehydrogenase Troponin T C-Reactive Protein Total Protein Albumin Prealbumin Triglycerides Cholesterol LDL Cholesterol Direct HDL Cholesterol PTH Intact Urine pH Urine WBC (Auto) Urine Creatinine Urine Total Protein Fluid Total Protein Vancomycin Trough Rheumatoid Factor Complement C4 Miscellaneous Test Crossmatch 12/10/16 12/10/16 12/10/16 05:00 05:00 06:54 WBC 15.7 H RBC 2.87 L Hgb 8.2 L Hct 24.4 L MCV MCH MCHC RDW 17.2 H Plt Count Lymph % (Auto) Brown % (Auto) 8.3 H Lymph # Brown # 1.3 H Baso # Seg Neutrophils % 72.8 H Seg Neuts % (Manual) Lymphocytes % (Manual) Monocytes % (Manual) Eosinophils % (Manual) Basophils % (Manual) Nucleated RBC % Seg Neutrophils # 11.4 H Seg Neutrophils # Man Lymphocytes # (Manual) Monocytes # (Manual) Eosinophils # (Manual) Basophils # (Manual) PT INR Fibrinogen dRVVT Confirm Interp Factor V Activity POC ABG pH POC ABG pCO2 POC ABG pO2 ABG pO2 ABG HCO3 ABG Base Excess ABG Hemoglobin Oxyhemoglobin Sodium Potassium Chloride Carbon Dioxide BUN 64 H Creatinine 1.4 H Glucose 134 H POC Glucose 154 H Lactic Acid Calcium Phosphorus Magnesium Direct Bilirubin AST ALT Alkaline Phosphatase Lactate Dehydrogenase Troponin T C-Reactive Protein Total Protein Albumin Prealbumin Triglycerides Cholesterol LDL Cholesterol Direct HDL Cholesterol PTH Intact Urine pH Urine WBC (Auto) Urine Creatinine Urine Total Protein Fluid Total Protein Vancomycin Trough Rheumatoid Factor Complement C4 Miscellaneous Test Crossmatch 12/10/16 12/10/16 12/10/16 11:58 17:29 23:52 WBC RBC Hgb Hct MCV MCH MCHC RDW Plt Count Lymph % (Auto) Brown % (Auto) Lymph # Brown # Baso # Seg Neutrophils % Seg Neuts % (Manual) Lymphocytes % (Manual) Monocytes % (Manual) Eosinophils % (Manual) Basophils % (Manual) Nucleated RBC % Seg Neutrophils # Seg Neutrophils # Man Lymphocytes # (Manual) Monocytes # (Manual) Eosinophils # (Manual) Basophils # (Manual) PT INR Fibrinogen dRVVT Confirm Interp Factor V Activity POC ABG pH POC ABG pCO2 POC ABG pO2 ABG pO2 ABG HCO3 ABG Base Excess ABG Hemoglobin Oxyhemoglobin Sodium Potassium Chloride Carbon Dioxide BUN Creatinine Glucose POC Glucose 144 H 163 H 125 H Lactic Acid Calcium Phosphorus Magnesium Direct Bilirubin AST ALT Alkaline Phosphatase Lactate Dehydrogenase Troponin T C-Reactive Protein Total Protein Albumin Prealbumin Triglycerides Cholesterol LDL Cholesterol Direct HDL Cholesterol PTH Intact Urine pH Urine WBC (Auto) Urine Creatinine Urine Total Protein Fluid Total Protein Vancomycin Trough Rheumatoid Factor Complement C4 Miscellaneous Test Crossmatch 12/11/16 12/11/16 12/11/16 05:38 06:30 06:30 WBC 14.4 H RBC 2.76 L Hgb 7.7 L Hct 23.4 L MCV MCH MCHC RDW 17.2 H Plt Count Lymph % (Auto) Brown % (Auto) 8.8 H Lymph # Brown # 1.3 H Baso # Seg Neutrophils % 72.5 H Seg Neuts % (Manual) Lymphocytes % (Manual) Monocytes % (Manual) Eosinophils % (Manual) Basophils % (Manual) Nucleated RBC % Seg Neutrophils # 10.5 H Seg Neutrophils # Man Lymphocytes # (Manual) Monocytes # (Manual) Eosinophils # (Manual) Basophils # (Manual) PT INR Fibrinogen dRVVT Confirm Interp Factor V Activity POC ABG pH POC ABG pCO2 POC ABG pO2 ABG pO2 ABG HCO3 ABG Base Excess ABG Hemoglobin Oxyhemoglobin Sodium Potassium Chloride Carbon Dioxide BUN 43 H Creatinine Glucose 124 H POC Glucose 141 H Lactic Acid Calcium 8.3 L Phosphorus Magnesium 1.60 L Direct Bilirubin AST ALT Alkaline Phosphatase Lactate Dehydrogenase Troponin T C-Reactive Protein Total Protein Albumin Prealbumin Triglycerides Cholesterol LDL Cholesterol Direct HDL Cholesterol PTH Intact Urine pH Urine WBC (Auto) Urine Creatinine Urine Total Protein Fluid Total Protein Vancomycin Trough Rheumatoid Factor Complement C4 Miscellaneous Test Crossmatch 12/11/16 12/11/16 12/11/16 11:15 17:59 23:48 WBC RBC Hgb Hct MCV MCH MCHC RDW Plt Count Lymph % (Auto) Brown % (Auto) Lymph # Brown # Baso # Seg Neutrophils % Seg Neuts % (Manual) Lymphocytes % (Manual) Monocytes % (Manual) Eosinophils % (Manual) Basophils % (Manual) Nucleated RBC % Seg Neutrophils # Seg Neutrophils # Man Lymphocytes # (Manual) Monocytes # (Manual) Eosinophils # (Manual) Basophils # (Manual) PT INR Fibrinogen dRVVT Confirm Interp Factor V Activity POC ABG pH POC ABG pCO2 POC ABG pO2 ABG pO2 ABG HCO3 ABG Base Excess ABG Hemoglobin Oxyhemoglobin Sodium Potassium Chloride Carbon Dioxide BUN Creatinine Glucose POC Glucose 188 H 106 H 119 H Lactic Acid Calcium Phosphorus Magnesium Direct Bilirubin AST ALT Alkaline Phosphatase Lactate Dehydrogenase Troponin T C-Reactive Protein Total Protein Albumin Prealbumin Triglycerides Cholesterol LDL Cholesterol Direct HDL Cholesterol PTH Intact Urine pH Urine WBC (Auto) Urine Creatinine Urine Total Protein Fluid Total Protein Vancomycin Trough Rheumatoid Factor Complement C4 Miscellaneous Test Crossmatch 12/12/16 12/12/16 12/12/16 05:00 06:01 12:20 WBC 16.7 H RBC 2.87 L Hgb 8.0 L Hct 24.2 L MCV MCH MCHC RDW 17.6 H Plt Count Lymph % (Auto) Brown % (Auto) Lymph # Brown # 1.2 H Baso # Seg Neutrophils % 75.3 H Seg Neuts % (Manual) Lymphocytes % (Manual) Monocytes % (Manual) Eosinophils % (Manual) Basophils % (Manual) Nucleated RBC % Seg Neutrophils # 12.6 H Seg Neutrophils # Man Lymphocytes # (Manual) Monocytes # (Manual) Eosinophils # (Manual) Basophils # (Manual) PT INR Fibrinogen dRVVT Confirm Interp Factor V Activity POC ABG pH POC ABG pCO2 POC ABG pO2 ABG pO2 ABG HCO3 ABG Base Excess ABG Hemoglobin Oxyhemoglobin Sodium Potassium Chloride Carbon Dioxide BUN Creatinine Glucose POC Glucose 134 H 149 H Lactic Acid Calcium Phosphorus Magnesium Direct Bilirubin AST ALT Alkaline Phosphatase Lactate Dehydrogenase Troponin T C-Reactive Protein Total Protein Albumin Prealbumin Triglycerides Cholesterol LDL Cholesterol Direct HDL Cholesterol PTH Intact Urine pH Urine WBC (Auto) Urine Creatinine Urine Total Protein Fluid Total Protein Vancomycin Trough Rheumatoid Factor Complement C4 Miscellaneous Test Crossmatch 12/12/16 12/12/16 12/12/16 17:38 23:01 Unknown WBC RBC Hgb Hct MCV MCH MCHC RDW Plt Count Lymph % (Auto) Brown % (Auto) Lymph # Brown # Baso # Seg Neutrophils % Seg Neuts % (Manual) Lymphocytes % (Manual) Monocytes % (Manual) Eosinophils % (Manual) Basophils % (Manual) Nucleated RBC % Seg Neutrophils # Seg Neutrophils # Man Lymphocytes # (Manual) Monocytes # (Manual) Eosinophils # (Manual) Basophils # (Manual) PT INR Fibrinogen dRVVT Confirm Interp Factor V Activity POC ABG pH POC ABG pCO2 POC ABG pO2 ABG pO2 ABG HCO3 ABG Base Excess ABG Hemoglobin Oxyhemoglobin Sodium Potassium Chloride Carbon Dioxide BUN 60 H Creatinine 1.3 H Glucose 126 H POC Glucose 127 H 144 H Lactic Acid Calcium Phosphorus Magnesium Direct Bilirubin AST ALT Alkaline Phosphatase Lactate Dehydrogenase Troponin T C-Reactive Protein Total Protein Albumin Prealbumin Triglycerides Cholesterol LDL Cholesterol Direct HDL Cholesterol PTH Intact Urine pH Urine WBC (Auto) Urine Creatinine Urine Total Protein Fluid Total Protein Vancomycin Trough Rheumatoid Factor Complement C4 Miscellaneous Test Crossmatch 12/13/16 12/13/16 12/13/16 04:00 04:00 05:19 WBC 18.7 H RBC 2.89 L Hgb 8.3 L Hct 24.6 L MCV MCH MCHC RDW 17.5 H Plt Count Lymph % (Auto) Brown % (Auto) Lymph # Brown # 1.3 H Baso # Seg Neutrophils % 71.5 H Seg Neuts % (Manual) Lymphocytes % (Manual) Monocytes % (Manual) Eosinophils % (Manual) Basophils % (Manual) Nucleated RBC % Seg Neutrophils # 13.4 H Seg Neutrophils # Man Lymphocytes # (Manual) Monocytes # (Manual) Eosinophils # (Manual) Basophils # (Manual) PT INR Fibrinogen dRVVT Confirm Interp Factor V Activity POC ABG pH POC ABG pCO2 POC ABG pO2 ABG pO2 ABG HCO3 ABG Base Excess ABG Hemoglobin Oxyhemoglobin Sodium Potassium Chloride Carbon Dioxide BUN 73 H Creatinine 1.5 H Glucose 141 H POC Glucose 171 H Lactic Acid Calcium Phosphorus Magnesium Direct Bilirubin AST ALT Alkaline Phosphatase Lactate Dehydrogenase Troponin T C-Reactive Protein Total Protein Albumin Prealbumin Triglycerides Cholesterol LDL Cholesterol Direct HDL Cholesterol PTH Intact Urine pH Urine WBC (Auto) Urine Creatinine Urine Total Protein Fluid Total Protein Vancomycin Trough Rheumatoid Factor Complement C4 Miscellaneous Test Crossmatch 12/13/16 12/13/16 12/14/16 12:28 16:48 00:01 WBC RBC Hgb Hct MCV MCH MCHC RDW Plt Count Lymph % (Auto) Brown % (Auto) Lymph # Brown # Baso # Seg Neutrophils % Seg Neuts % (Manual) Lymphocytes % (Manual) Monocytes % (Manual) Eosinophils % (Manual) Basophils % (Manual) Nucleated RBC % Seg Neutrophils # Seg Neutrophils # Man Lymphocytes # (Manual) Monocytes # (Manual) Eosinophils # (Manual) Basophils # (Manual) PT INR Fibrinogen dRVVT Confirm Interp Factor V Activity POC ABG pH POC ABG pCO2 POC ABG pO2 ABG pO2 ABG HCO3 ABG Base Excess ABG Hemoglobin Oxyhemoglobin Sodium Potassium Chloride Carbon Dioxide BUN Creatinine Glucose POC Glucose 206 H 173 H 139 H Lactic Acid Calcium Phosphorus Magnesium Direct Bilirubin AST ALT Alkaline Phosphatase Lactate Dehydrogenase Troponin T C-Reactive Protein Total Protein Albumin Prealbumin Triglycerides Cholesterol LDL Cholesterol Direct HDL Cholesterol PTH Intact Urine pH Urine WBC (Auto) Urine Creatinine Urine Total Protein Fluid Total Protein Vancomycin Trough Rheumatoid Factor Complement C4 Miscellaneous Test Crossmatch 12/14/16 12/14/16 12/14/16 05:16 06:10 11:17 WBC RBC Hgb Hct MCV MCH MCHC RDW Plt Count Lymph % (Auto) Brown % (Auto) Lymph # Brown # Baso # Seg Neutrophils % Seg Neuts % (Manual) Lymphocytes % (Manual) Monocytes % (Manual) Eosinophils % (Manual) Basophils % (Manual) Nucleated RBC % Seg Neutrophils # Seg Neutrophils # Man Lymphocytes # (Manual) Monocytes # (Manual) Eosinophils # (Manual) Basophils # (Manual) PT INR Fibrinogen dRVVT Confirm Interp Factor V Activity POC ABG pH POC ABG pCO2 POC ABG pO2 ABG pO2 ABG HCO3 ABG Base Excess ABG Hemoglobin Oxyhemoglobin Sodium Potassium Chloride Carbon Dioxide BUN 57 H Creatinine 1.4 H Glucose 135 H POC Glucose 158 H 137 H Lactic Acid Calcium Phosphorus Magnesium Direct Bilirubin AST ALT Alkaline Phosphatase Lactate Dehydrogenase Troponin T C-Reactive Protein Total Protein Albumin Prealbumin Triglycerides Cholesterol LDL Cholesterol Direct HDL Cholesterol PTH Intact Urine pH Urine WBC (Auto) Urine Creatinine Urine Total Protein Fluid Total Protein Vancomycin Trough Rheumatoid Factor Complement C4 Miscellaneous Test Crossmatch 12/14/16 12/14/16 12/15/16 17:52 23:27 04:00 WBC RBC Hgb Hct MCV MCH MCHC RDW Plt Count Lymph % (Auto) Brown % (Auto) Lymph # Brown # Baso # Seg Neutrophils % Seg Neuts % (Manual) Lymphocytes % (Manual) Monocytes % (Manual) Eosinophils % (Manual) Basophils % (Manual) Nucleated RBC % Seg Neutrophils # Seg Neutrophils # Man Lymphocytes # (Manual) Monocytes # (Manual) Eosinophils # (Manual) Basophils # (Manual) PT INR Fibrinogen dRVVT Confirm Interp Factor V Activity POC ABG pH POC ABG pCO2 POC ABG pO2 ABG pO2 ABG HCO3 ABG Base Excess ABG Hemoglobin Oxyhemoglobin Sodium Potassium Chloride 97.9 L Carbon Dioxide BUN 75 H Creatinine 1.6 H Glucose 122 H POC Glucose 149 H 163 H Lactic Acid Calcium Phosphorus 5.20 H Magnesium Direct Bilirubin AST ALT Alkaline Phosphatase Lactate Dehydrogenase Troponin T C-Reactive Protein Total Protein Albumin Prealbumin Triglycerides Cholesterol LDL Cholesterol Direct HDL Cholesterol PTH Intact Urine pH Urine WBC (Auto) Urine Creatinine Urine Total Protein Fluid Total Protein Vancomycin Trough Rheumatoid Factor Complement C4 Miscellaneous Test Crossmatch 12/15/16 12/15/16 12/15/16 05:50 11:24 17:01 WBC RBC Hgb Hct MCV MCH MCHC RDW Plt Count Lymph % (Auto) Brown % (Auto) Lymph # Brown # Baso # Seg Neutrophils % Seg Neuts % (Manual) Lymphocytes % (Manual) Monocytes % (Manual) Eosinophils % (Manual) Basophils % (Manual) Nucleated RBC % Seg Neutrophils # Seg Neutrophils # Man Lymphocytes # (Manual) Monocytes # (Manual) Eosinophils # (Manual) Basophils # (Manual) PT INR Fibrinogen dRVVT Confirm Interp Factor V Activity POC ABG pH POC ABG pCO2 POC ABG pO2 ABG pO2 ABG HCO3 ABG Base Excess ABG Hemoglobin Oxyhemoglobin Sodium Potassium Chloride Carbon Dioxide BUN Creatinine Glucose POC Glucose 150 H 146 H 167 H Lactic Acid Calcium Phosphorus Magnesium Direct Bilirubin AST ALT Alkaline Phosphatase Lactate Dehydrogenase Troponin T C-Reactive Protein Total Protein Albumin Prealbumin Triglycerides Cholesterol LDL Cholesterol Direct HDL Cholesterol PTH Intact Urine pH Urine WBC (Auto) Urine Creatinine Urine Total Protein Fluid Total Protein Vancomycin Trough Rheumatoid Factor Complement C4 Miscellaneous Test Crossmatch 12/15/16 12/16/16 12/16/16 23:34 05:25 11:24 WBC RBC Hgb Hct MCV MCH MCHC RDW Plt Count Lymph % (Auto) Brown % (Auto) Lymph # Brown # Baso # Seg Neutrophils % Seg Neuts % (Manual) Lymphocytes % (Manual) Monocytes % (Manual) Eosinophils % (Manual) Basophils % (Manual) Nucleated RBC % Seg Neutrophils # Seg Neutrophils # Man Lymphocytes # (Manual) Monocytes # (Manual) Eosinophils # (Manual) Basophils # (Manual) PT INR Fibrinogen dRVVT Confirm Interp Factor V Activity POC ABG pH POC ABG pCO2 POC ABG pO2 ABG pO2 ABG HCO3 ABG Base Excess ABG Hemoglobin Oxyhemoglobin Sodium Potassium Chloride Carbon Dioxide BUN Creatinine Glucose POC Glucose 127 H 139 H 165 H Lactic Acid Calcium Phosphorus Magnesium Direct Bilirubin AST ALT Alkaline Phosphatase Lactate Dehydrogenase Troponin T C-Reactive Protein Total Protein Albumin Prealbumin Triglycerides Cholesterol LDL Cholesterol Direct HDL Cholesterol PTH Intact Urine pH Urine WBC (Auto) Urine Creatinine Urine Total Protein Fluid Total Protein Vancomycin Trough Rheumatoid Factor Complement C4 Miscellaneous Test Crossmatch 12/16/16 12/16/16 12/16/16 15:30 16:25 17:31 WBC 17.8 H RBC 2.38 L Hgb 6.4 L Hct 20.3 L MCV MCH 27 L MCHC RDW 17.4 H Plt Count Lymph % (Auto) Brown % (Auto) Lymph # Brown # Baso # Seg Neutrophils % Seg Neuts % (Manual) Lymphocytes % (Manual) Monocytes % (Manual) 10.0 H Eosinophils % (Manual) Basophils % (Manual) Nucleated RBC % Seg Neutrophils # Seg Neutrophils # Man 8.5 H Lymphocytes # (Manual) Monocytes # (Manual) 1.8 H Eosinophils # (Manual) Basophils # (Manual) PT INR Fibrinogen dRVVT Confirm Interp Factor V Activity POC ABG pH POC ABG pCO2 POC ABG pO2 ABG pO2 ABG HCO3 ABG Base Excess ABG Hemoglobin Oxyhemoglobin Sodium Potassium Chloride Carbon Dioxide BUN Creatinine Glucose POC Glucose 176 H Lactic Acid Calcium Phosphorus Magnesium Direct Bilirubin AST ALT Alkaline Phosphatase Lactate Dehydrogenase Troponin T C-Reactive Protein Total Protein Albumin Prealbumin Triglycerides Cholesterol LDL Cholesterol Direct HDL Cholesterol PTH Intact Urine pH Urine WBC (Auto) Urine Creatinine Urine Total Protein Fluid Total Protein Vancomycin Trough Rheumatoid Factor Complement C4 Miscellaneous Test Crossmatch See Detail 12/17/16 12/17/16 12/17/16 00:14 04:00 05:00 WBC 20.0 H RBC 2.99 L Hgb 8.5 L Hct 25.7 L MCV MCH MCHC RDW 17.2 H Plt Count Lymph % (Auto) Brown % (Auto) Lymph # Brown # Baso # Seg Neutrophils % Seg Neuts % (Manual) Lymphocytes % (Manual) Monocytes % (Manual) Eosinophils % (Manual) Basophils % (Manual) Nucleated RBC % Seg Neutrophils # Seg Neutrophils # Man Lymphocytes # (Manual) Monocytes # (Manual) Eosinophils # (Manual) Basophils # (Manual) PT INR Fibrinogen dRVVT Confirm Interp Factor V Activity POC ABG pH POC ABG pCO2 POC ABG pO2 ABG pO2 ABG HCO3 ABG Base Excess ABG Hemoglobin Oxyhemoglobin Sodium Potassium Chloride 97.7 L Carbon Dioxide BUN 73 H Creatinine 1.7 H Glucose 136 H POC Glucose 148 H Lactic Acid Calcium Phosphorus 2.20 L Magnesium 2.70 H Direct Bilirubin AST ALT Alkaline Phosphatase Lactate Dehydrogenase Troponin T C-Reactive Protein Total Protein Albumin Prealbumin Triglycerides Cholesterol LDL Cholesterol Direct HDL Cholesterol PTH Intact Urine pH Urine WBC (Auto) Urine Creatinine Urine Total Protein Fluid Total Protein Vancomycin Trough Rheumatoid Factor Complement C4 Miscellaneous Test Crossmatch 12/17/16 12/17/16 12/17/16 05:39 12:50 16:32 WBC RBC Hgb Hct MCV MCH MCHC RDW Plt Count Lymph % (Auto) Brown % (Auto) Lymph # Brown # Baso # Seg Neutrophils % Seg Neuts % (Manual) Lymphocytes % (Manual) Monocytes % (Manual) Eosinophils % (Manual) Basophils % (Manual) Nucleated RBC % Seg Neutrophils # Seg Neutrophils # Man Lymphocytes # (Manual) Monocytes # (Manual) Eosinophils # (Manual) Basophils # (Manual) PT INR Fibrinogen dRVVT Confirm Interp Factor V Activity POC ABG pH POC ABG pCO2 POC ABG pO2 ABG pO2 ABG HCO3 ABG Base Excess ABG Hemoglobin Oxyhemoglobin Sodium Potassium Chloride Carbon Dioxide BUN Creatinine Glucose POC Glucose 162 H 146 H 169 H Lactic Acid Calcium Phosphorus Magnesium Direct Bilirubin AST ALT Alkaline Phosphatase Lactate Dehydrogenase Troponin T C-Reactive Protein Total Protein Albumin Prealbumin Triglycerides Cholesterol LDL Cholesterol Direct HDL Cholesterol PTH Intact Urine pH Urine WBC (Auto) Urine Creatinine Urine Total Protein Fluid Total Protein Vancomycin Trough Rheumatoid Factor Complement C4 Miscellaneous Test Crossmatch 12/17/16 12/18/16 12/18/16 23:57 05:00 05:32 WBC RBC Hgb Hct MCV MCH MCHC RDW Plt Count Lymph % (Auto) Brown % (Auto) Lymph # Brown # Baso # Seg Neutrophils % Seg Neuts % (Manual) Lymphocytes % (Manual) Monocytes % (Manual) Eosinophils % (Manual) Basophils % (Manual) Nucleated RBC % Seg Neutrophils # Seg Neutrophils # Man Lymphocytes # (Manual) Monocytes # (Manual) Eosinophils # (Manual) Basophils # (Manual) PT INR Fibrinogen dRVVT Confirm Interp Factor V Activity POC ABG pH POC ABG pCO2 POC ABG pO2 ABG pO2 ABG HCO3 ABG Base Excess ABG Hemoglobin Oxyhemoglobin Sodium Potassium Chloride 97.0 L Carbon Dioxide BUN 63 H Creatinine 1.4 H Glucose 174 H POC Glucose 145 H 201 H Lactic Acid Calcium Phosphorus 1.70 L D Magnesium Direct Bilirubin AST ALT Alkaline Phosphatase 257 H Lactate Dehydrogenase Troponin T C-Reactive Protein Total Protein 5.9 L Albumin 1.8 L Prealbumin Triglycerides Cholesterol LDL Cholesterol Direct HDL Cholesterol PTH Intact Urine pH Urine WBC (Auto) Urine Creatinine Urine Total Protein Fluid Total Protein Vancomycin Trough Rheumatoid Factor Complement C4 Miscellaneous Test Crossmatch 12/18/16 12/18/16 12/18/16 11:43 16:52 23:52 WBC RBC Hgb Hct MCV MCH MCHC RDW Plt Count Lymph % (Auto) Brown % (Auto) Lymph # Brown # Baso # Seg Neutrophils % Seg Neuts % (Manual) Lymphocytes % (Manual) Monocytes % (Manual) Eosinophils % (Manual) Basophils % (Manual) Nucleated RBC % Seg Neutrophils # Seg Neutrophils # Man Lymphocytes # (Manual) Monocytes # (Manual) Eosinophils # (Manual) Basophils # (Manual) PT INR Fibrinogen dRVVT Confirm Interp Factor V Activity POC ABG pH POC ABG pCO2 POC ABG pO2 ABG pO2 ABG HCO3 ABG Base Excess ABG Hemoglobin Oxyhemoglobin Sodium Potassium Chloride Carbon Dioxide BUN Creatinine Glucose POC Glucose 177 H 110 H 162 H Lactic Acid Calcium Phosphorus Magnesium Direct Bilirubin AST ALT Alkaline Phosphatase Lactate Dehydrogenase Troponin T C-Reactive Protein Total Protein Albumin Prealbumin Triglycerides Cholesterol LDL Cholesterol Direct HDL Cholesterol PTH Intact Urine pH Urine WBC (Auto) Urine Creatinine Urine Total Protein Fluid Total Protein Vancomycin Trough Rheumatoid Factor Complement C4 Miscellaneous Test Crossmatch 12/19/16 12/19/16 12/19/16 05:02 05:24 09:30 WBC 20.1 H RBC 2.73 L Hgb 7.6 L Hct 23.6 L MCV MCH MCHC RDW 17.6 H Plt Count Lymph % (Auto) Brown % (Auto) Lymph # Brown # Baso # Seg Neutrophils % Seg Neuts % (Manual) Lymphocytes % (Manual) 13.0 L Monocytes % (Manual) Eosinophils % (Manual) Basophils % (Manual) Nucleated RBC % 1.0 H Seg Neutrophils # Seg Neutrophils # Man 12.9 H Lymphocytes # (Manual) Monocytes # (Manual) 1.4 H Eosinophils # (Manual) Basophils # (Manual) 0.2 H PT INR Fibrinogen dRVVT Confirm Interp Factor V Activity POC ABG pH POC ABG pCO2 POC ABG pO2 ABG pO2 ABG HCO3 ABG Base Excess ABG Hemoglobin Oxyhemoglobin Sodium Potassium Chloride 97.8 L Carbon Dioxide BUN 84 H Creatinine 1.6 H Glucose 133 H POC Glucose 134 H Lactic Acid Calcium Phosphorus Magnesium Direct Bilirubin AST ALT Alkaline Phosphatase Lactate Dehydrogenase Troponin T C-Reactive Protein Total Protein Albumin Prealbumin Triglycerides Cholesterol LDL Cholesterol Direct HDL Cholesterol PTH Intact Urine pH Urine WBC (Auto) Urine Creatinine Urine Total Protein Fluid Total Protein Vancomycin Trough Rheumatoid Factor Complement C4 Miscellaneous Test Crossmatch 12/19/16 12/19/16 12/19/16 09:36 11:12 18:29 WBC RBC Hgb Hct MCV MCH MCHC RDW Plt Count Lymph % (Auto) Brown % (Auto) Lymph # Brown # Baso # Seg Neutrophils % Seg Neuts % (Manual) Lymphocytes % (Manual) Monocytes % (Manual) Eosinophils % (Manual) Basophils % (Manual) Nucleated RBC % Seg Neutrophils # Seg Neutrophils # Man Lymphocytes # (Manual) Monocytes # (Manual) Eosinophils # (Manual) Basophils # (Manual) PT INR Fibrinogen dRVVT Confirm Interp Factor V Activity POC ABG pH 7.503 H POC ABG pCO2 30.1 L POC ABG pO2 ABG pO2 ABG HCO3 ABG Base Excess ABG Hemoglobin Oxyhemoglobin Sodium Potassium Chloride Carbon Dioxide BUN Creatinine Glucose POC Glucose 138 H 156 H Lactic Acid Calcium Phosphorus Magnesium Direct Bilirubin AST ALT Alkaline Phosphatase Lactate Dehydrogenase Troponin T C-Reactive Protein Total Protein Albumin Prealbumin Triglycerides Cholesterol LDL Cholesterol Direct HDL Cholesterol PTH Intact Urine pH Urine WBC (Auto) Urine Creatinine Urine Total Protein Fluid Total Protein Vancomycin Trough Rheumatoid Factor Complement C4 Miscellaneous Test Crossmatch 12/20/16 12/20/16 12/20/16 00:03 06:17 07:07 WBC RBC Hgb Hct MCV MCH MCHC RDW Plt Count Lymph % (Auto) Brown % (Auto) Lymph # Brown # Baso # Seg Neutrophils % Seg Neuts % (Manual) Lymphocytes % (Manual) Monocytes % (Manual) Eosinophils % (Manual) Basophils % (Manual) Nucleated RBC % Seg Neutrophils # Seg Neutrophils # Man Lymphocytes # (Manual) Monocytes # (Manual) Eosinophils # (Manual) Basophils # (Manual) PT INR Fibrinogen dRVVT Confirm Interp Factor V Activity POC ABG pH POC ABG pCO2 POC ABG pO2 ABG pO2 ABG HCO3 ABG Base Excess ABG Hemoglobin Oxyhemoglobin Sodium Potassium Chloride 97.1 L Carbon Dioxide 20 L BUN 97 H Creatinine 1.8 H Glucose 153 H POC Glucose 152 H 175 H Lactic Acid Calcium Phosphorus Magnesium Direct Bilirubin AST ALT Alkaline Phosphatase Lactate Dehydrogenase Troponin T C-Reactive Protein Total Protein Albumin Prealbumin Triglycerides Cholesterol LDL Cholesterol Direct HDL Cholesterol PTH Intact Urine pH Urine WBC (Auto) Urine Creatinine Urine Total Protein Fluid Total Protein Vancomycin Trough Rheumatoid Factor Complement C4 Miscellaneous Test Crossmatch 12/20/16 12/20/16 12/20/16 12:00 17:42 23:53 WBC RBC Hgb Hct MCV MCH MCHC RDW Plt Count Lymph % (Auto) Brown % (Auto) Lymph # Brown # Baso # Seg Neutrophils % Seg Neuts % (Manual) Lymphocytes % (Manual) Monocytes % (Manual) Eosinophils % (Manual) Basophils % (Manual) Nucleated RBC % Seg Neutrophils # Seg Neutrophils # Man Lymphocytes # (Manual) Monocytes # (Manual) Eosinophils # (Manual) Basophils # (Manual) PT INR Fibrinogen dRVVT Confirm Interp Factor V Activity POC ABG pH POC ABG pCO2 POC ABG pO2 ABG pO2 ABG HCO3 ABG Base Excess ABG Hemoglobin Oxyhemoglobin Sodium Potassium Chloride Carbon Dioxide BUN Creatinine Glucose POC Glucose 141 H 156 H 132 H Lactic Acid Calcium Phosphorus Magnesium Direct Bilirubin AST ALT Alkaline Phosphatase Lactate Dehydrogenase Troponin T C-Reactive Protein Total Protein Albumin Prealbumin Triglycerides Cholesterol LDL Cholesterol Direct HDL Cholesterol PTH Intact Urine pH Urine WBC (Auto) Urine Creatinine Urine Total Protein Fluid Total Protein Vancomycin Trough Rheumatoid Factor Complement C4 Miscellaneous Test Crossmatch 12/21/16 12/21/16 12/21/16 05:49 08:50 12:19 WBC RBC Hgb Hct MCV MCH MCHC RDW Plt Count Lymph % (Auto) Brown % (Auto) Lymph # Brown # Baso # Seg Neutrophils % Seg Neuts % (Manual) Lymphocytes % (Manual) Monocytes % (Manual) Eosinophils % (Manual) Basophils % (Manual) Nucleated RBC % Seg Neutrophils # Seg Neutrophils # Man Lymphocytes # (Manual) Monocytes # (Manual) Eosinophils # (Manual) Basophils # (Manual) PT INR Fibrinogen dRVVT Confirm Interp Factor V Activity POC ABG pH POC ABG pCO2 POC ABG pO2 ABG pO2 ABG HCO3 ABG Base Excess ABG Hemoglobin Oxyhemoglobin Sodium Potassium 5.2 H D Chloride Carbon Dioxide BUN 63 H Creatinine Glucose 122 H POC Glucose 132 H 136 H Lactic Acid Calcium 8.3 L Phosphorus Magnesium Direct Bilirubin AST ALT Alkaline Phosphatase Lactate Dehydrogenase Troponin T C-Reactive Protein Total Protein Albumin Prealbumin Triglycerides Cholesterol LDL Cholesterol Direct HDL Cholesterol PTH Intact Urine pH Urine WBC (Auto) Urine Creatinine Urine Total Protein Fluid Total Protein Vancomycin Trough Rheumatoid Factor Complement C4 Miscellaneous Test Crossmatch 12/21/16 12/21/16 12/22/16 17:22 23:58 05:49 WBC RBC Hgb Hct MCV MCH MCHC RDW Plt Count Lymph % (Auto) Brown % (Auto) Lymph # Brown # Baso # Seg Neutrophils % Seg Neuts % (Manual) Lymphocytes % (Manual) Monocytes % (Manual) Eosinophils % (Manual) Basophils % (Manual) Nucleated RBC % Seg Neutrophils # Seg Neutrophils # Man Lymphocytes # (Manual) Monocytes # (Manual) Eosinophils # (Manual) Basophils # (Manual) PT INR Fibrinogen dRVVT Confirm Interp Factor V Activity POC ABG pH POC ABG pCO2 POC ABG pO2 ABG pO2 ABG HCO3 ABG Base Excess ABG Hemoglobin Oxyhemoglobin Sodium Potassium Chloride Carbon Dioxide BUN Creatinine Glucose POC Glucose 135 H 149 H 140 H Lactic Acid Calcium Phosphorus Magnesium Direct Bilirubin AST ALT Alkaline Phosphatase Lactate Dehydrogenase Troponin T C-Reactive Protein Total Protein Albumin Prealbumin Triglycerides Cholesterol LDL Cholesterol Direct HDL Cholesterol PTH Intact Urine pH Urine WBC (Auto) Urine Creatinine Urine Total Protein Fluid Total Protein Vancomycin Trough Rheumatoid Factor Complement C4 Miscellaneous Test Crossmatch 12/22/16 12/22/16 12/22/16 06:10 11:17 17:31 WBC RBC Hgb Hct MCV MCH MCHC RDW Plt Count Lymph % (Auto) Brown % (Auto) Lymph # Brown # Baso # Seg Neutrophils % Seg Neuts % (Manual) Lymphocytes % (Manual) Monocytes % (Manual) Eosinophils % (Manual) Basophils % (Manual) Nucleated RBC % Seg Neutrophils # Seg Neutrophils # Man Lymphocytes # (Manual) Monocytes # (Manual) Eosinophils # (Manual) Basophils # (Manual) PT INR Fibrinogen dRVVT Confirm Interp Factor V Activity POC ABG pH POC ABG pCO2 POC ABG pO2 ABG pO2 ABG HCO3 ABG Base Excess ABG Hemoglobin Oxyhemoglobin Sodium Potassium Chloride Carbon Dioxide BUN 76 H Creatinine 1.5 H Glucose 241 H POC Glucose 193 H 148 H Lactic Acid Calcium Phosphorus Magnesium Direct Bilirubin AST ALT Alkaline Phosphatase Lactate Dehydrogenase Troponin T C-Reactive Protein Total Protein Albumin Prealbumin Triglycerides Cholesterol LDL Cholesterol Direct HDL Cholesterol PTH Intact Urine pH Urine WBC (Auto) Urine Creatinine Urine Total Protein Fluid Total Protein Vancomycin Trough Rheumatoid Factor Complement C4 Miscellaneous Test Crossmatch 12/22/16 12/23/16 12/23/16 23:58 05:00 05:26 WBC RBC Hgb Hct MCV MCH MCHC RDW Plt Count Lymph % (Auto) Brown % (Auto) Lymph # Brown # Baso # Seg Neutrophils % Seg Neuts % (Manual) Lymphocytes % (Manual) Monocytes % (Manual) Eosinophils % (Manual) Basophils % (Manual) Nucleated RBC % Seg Neutrophils # Seg Neutrophils # Man Lymphocytes # (Manual) Monocytes # (Manual) Eosinophils # (Manual) Basophils # (Manual) PT INR Fibrinogen dRVVT Confirm Interp Factor V Activity POC ABG pH POC ABG pCO2 POC ABG pO2 ABG pO2 ABG HCO3 ABG Base Excess ABG Hemoglobin Oxyhemoglobin Sodium Potassium Chloride Carbon Dioxide BUN 49 H Creatinine Glucose 143 H POC Glucose 165 H 154 H Lactic Acid Calcium 8.2 L Phosphorus Magnesium 1.60 L Direct Bilirubin AST ALT Alkaline Phosphatase Lactate Dehydrogenase Troponin T C-Reactive Protein Total Protein Albumin Prealbumin Triglycerides Cholesterol LDL Cholesterol Direct HDL Cholesterol PTH Intact Urine pH Urine WBC (Auto) Urine Creatinine Urine Total Protein Fluid Total Protein Vancomycin Trough Rheumatoid Factor Complement C4 Miscellaneous Test Crossmatch 12/23/16 12/23/16 12/24/16 12:35 17:01 00:01 WBC RBC Hgb Hct MCV MCH MCHC RDW Plt Count Lymph % (Auto) Brown % (Auto) Lymph # Brown # Baso # Seg Neutrophils % Seg Neuts % (Manual) Lymphocytes % (Manual) Monocytes % (Manual) Eosinophils % (Manual) Basophils % (Manual) Nucleated RBC % Seg Neutrophils # Seg Neutrophils # Man Lymphocytes # (Manual) Monocytes # (Manual) Eosinophils # (Manual) Basophils # (Manual) PT INR Fibrinogen dRVVT Confirm Interp Factor V Activity POC ABG pH POC ABG pCO2 POC ABG pO2 ABG pO2 ABG HCO3 ABG Base Excess ABG Hemoglobin Oxyhemoglobin Sodium Potassium Chloride Carbon Dioxide BUN Creatinine Glucose POC Glucose 164 H 149 H 135 H Lactic Acid Calcium Phosphorus Magnesium Direct Bilirubin AST ALT Alkaline Phosphatase Lactate Dehydrogenase Troponin T C-Reactive Protein Total Protein Albumin Prealbumin Triglycerides Cholesterol LDL Cholesterol Direct HDL Cholesterol PTH Intact Urine pH Urine WBC (Auto) Urine Creatinine Urine Total Protein Fluid Total Protein Vancomycin Trough Rheumatoid Factor Complement C4 Miscellaneous Test Crossmatch 12/24/16 12/24/16 12/24/16 05:41 07:01 11:38 WBC RBC Hgb Hct MCV MCH MCHC RDW Plt Count Lymph % (Auto) Brown % (Auto) Lymph # Brown # Baso # Seg Neutrophils % Seg Neuts % (Manual) Lymphocytes % (Manual) Monocytes % (Manual) Eosinophils % (Manual) Basophils % (Manual) Nucleated RBC % Seg Neutrophils # Seg Neutrophils # Man Lymphocytes # (Manual) Monocytes # (Manual) Eosinophils # (Manual) Basophils # (Manual) PT INR Fibrinogen dRVVT Confirm Interp Factor V Activity POC ABG pH POC ABG pCO2 POC ABG pO2 ABG pO2 ABG HCO3 ABG Base Excess ABG Hemoglobin Oxyhemoglobin Sodium Potassium Chloride Carbon Dioxide BUN 72 H Creatinine 1.3 H Glucose 130 H POC Glucose 132 H 156 H Lactic Acid Calcium 8.2 L Phosphorus Magnesium Direct Bilirubin AST ALT Alkaline Phosphatase Lactate Dehydrogenase Troponin T C-Reactive Protein Total Protein Albumin Prealbumin Triglycerides Cholesterol LDL Cholesterol Direct HDL Cholesterol PTH Intact Urine pH Urine WBC (Auto) Urine Creatinine Urine Total Protein Fluid Total Protein Vancomycin Trough Rheumatoid Factor Complement C4 Miscellaneous Test Crossmatch 12/24/16 12/25/16 12/25/16 17:53 00:23 05:45 WBC RBC Hgb Hct MCV MCH MCHC RDW Plt Count Lymph % (Auto) Brown % (Auto) Lymph # Brown # Baso # Seg Neutrophils % Seg Neuts % (Manual) Lymphocytes % (Manual) Monocytes % (Manual) Eosinophils % (Manual) Basophils % (Manual) Nucleated RBC % Seg Neutrophils # Seg Neutrophils # Man Lymphocytes # (Manual) Monocytes # (Manual) Eosinophils # (Manual) Basophils # (Manual) PT INR Fibrinogen dRVVT Confirm Interp Factor V Activity POC ABG pH POC ABG pCO2 POC ABG pO2 ABG pO2 ABG HCO3 ABG Base Excess ABG Hemoglobin Oxyhemoglobin Sodium 146 H Potassium Chloride Carbon Dioxide BUN 51 H Creatinine Glucose 109 H POC Glucose 169 H 117 H Lactic Acid Calcium Phosphorus Magnesium Direct Bilirubin AST ALT Alkaline Phosphatase Lactate Dehydrogenase Troponin T C-Reactive Protein Total Protein Albumin Prealbumin Triglycerides Cholesterol LDL Cholesterol Direct HDL Cholesterol PTH Intact Urine pH Urine WBC (Auto) Urine Creatinine Urine Total Protein Fluid Total Protein Vancomycin Trough Rheumatoid Factor Complement C4 Miscellaneous Test Crossmatch 12/25/16 12/25/16 12/25/16 06:43 11:29 17:14 WBC RBC Hgb Hct MCV MCH MCHC RDW Plt Count Lymph % (Auto) Brown % (Auto) Lymph # Brown # Baso # Seg Neutrophils % Seg Neuts % (Manual) Lymphocytes % (Manual) Monocytes % (Manual) Eosinophils % (Manual) Basophils % (Manual) Nucleated RBC % Seg Neutrophils # Seg Neutrophils # Man Lymphocytes # (Manual) Monocytes # (Manual) Eosinophils # (Manual) Basophils # (Manual) PT INR Fibrinogen dRVVT Confirm Interp Factor V Activity POC ABG pH POC ABG pCO2 POC ABG pO2 ABG pO2 ABG HCO3 ABG Base Excess ABG Hemoglobin Oxyhemoglobin Sodium Potassium Chloride Carbon Dioxide BUN Creatinine Glucose POC Glucose 117 H 128 H 120 H Lactic Acid Calcium Phosphorus Magnesium Direct Bilirubin AST ALT Alkaline Phosphatase Lactate Dehydrogenase Troponin T C-Reactive Protein Total Protein Albumin Prealbumin Triglycerides Cholesterol LDL Cholesterol Direct HDL Cholesterol PTH Intact Urine pH Urine WBC (Auto) Urine Creatinine Urine Total Protein Fluid Total Protein Vancomycin Trough Rheumatoid Factor Complement C4 Miscellaneous Test Crossmatch 12/25/16 12/26/16 12/26/16 23:54 05:40 05:50 WBC 16.2 H RBC 2.32 L Hgb 6.2 L Hct 20.1 L MCV MCH 27 L MCHC RDW 18.6 H Plt Count Lymph % (Auto) Brown % (Auto) Lymph # Brown # Baso # Seg Neutrophils % Seg Neuts % (Manual) Lymphocytes % (Manual) Monocytes % (Manual) Eosinophils % (Manual) Basophils % (Manual) Nucleated RBC % Seg Neutrophils # Seg Neutrophils # Man Lymphocytes # (Manual) Monocytes # (Manual) Eosinophils # (Manual) Basophils # (Manual) PT INR Fibrinogen dRVVT Confirm Interp Factor V Activity POC ABG pH POC ABG pCO2 POC ABG pO2 ABG pO2 ABG HCO3 ABG Base Excess ABG Hemoglobin Oxyhemoglobin Sodium Potassium Chloride Carbon Dioxide BUN Creatinine Glucose POC Glucose 126 H 132 H Lactic Acid Calcium Phosphorus Magnesium Direct Bilirubin AST ALT Alkaline Phosphatase Lactate Dehydrogenase Troponin T C-Reactive Protein Total Protein Albumin Prealbumin Triglycerides Cholesterol LDL Cholesterol Direct HDL Cholesterol PTH Intact Urine pH Urine WBC (Auto) Urine Creatinine Urine Total Protein Fluid Total Protein Vancomycin Trough Rheumatoid Factor Complement C4 Miscellaneous Test Crossmatch 12/26/16 12/26/16 12/26/16 05:50 12:17 12:33 WBC RBC Hgb Hct MCV MCH MCHC RDW Plt Count Lymph % (Auto) Brown % (Auto) Lymph # Brown # Baso # Seg Neutrophils % Seg Neuts % (Manual) Lymphocytes % (Manual) Monocytes % (Manual) Eosinophils % (Manual) Basophils % (Manual) Nucleated RBC % Seg Neutrophils # Seg Neutrophils # Man Lymphocytes # (Manual) Monocytes # (Manual) Eosinophils # (Manual) Basophils # (Manual) PT INR Fibrinogen dRVVT Confirm Interp Factor V Activity POC ABG pH POC ABG pCO2 POC ABG pO2 ABG pO2 ABG HCO3 ABG Base Excess ABG Hemoglobin Oxyhemoglobin Sodium Potassium Chloride Carbon Dioxide BUN 73 H Creatinine 1.3 H Glucose 113 H POC Glucose 117 H Lactic Acid Calcium Phosphorus Magnesium Direct Bilirubin AST ALT Alkaline Phosphatase Lactate Dehydrogenase Troponin T C-Reactive Protein Total Protein Albumin Prealbumin Triglycerides Cholesterol LDL Cholesterol Direct HDL Cholesterol PTH Intact Urine pH Urine WBC (Auto) Urine Creatinine Urine Total Protein Fluid Total Protein Vancomycin Trough Rheumatoid Factor Complement C4 Miscellaneous Test Crossmatch See Detail 12/26/16 12/26/16 12/27/16 20:00 23:21 05:00 WBC RBC Hgb 8.4 L Hct 26.3 L D MCV MCH MCHC RDW Plt Count Lymph % (Auto) Brown % (Auto) Lymph # Brown # Baso # Seg Neutrophils % Seg Neuts % (Manual) Lymphocytes % (Manual) Monocytes % (Manual) Eosinophils % (Manual) Basophils % (Manual) Nucleated RBC % Seg Neutrophils # Seg Neutrophils # Man Lymphocytes # (Manual) Monocytes # (Manual) Eosinophils # (Manual) Basophils # (Manual) PT INR Fibrinogen dRVVT Confirm Interp Factor V Activity POC ABG pH POC ABG pCO2 POC ABG pO2 ABG pO2 ABG HCO3 ABG Base Excess ABG Hemoglobin Oxyhemoglobin Sodium Potassium Chloride Carbon Dioxide BUN 85 H Creatinine 1.6 H Glucose 118 H POC Glucose 124 H Lactic Acid Calcium Phosphorus 4.80 H Magnesium Direct Bilirubin AST ALT Alkaline Phosphatase Lactate Dehydrogenase Troponin T C-Reactive Protein Total Protein Albumin Prealbumin Triglycerides Cholesterol LDL Cholesterol Direct HDL Cholesterol PTH Intact Urine pH Urine WBC (Auto) Urine Creatinine Urine Total Protein Fluid Total Protein Vancomycin Trough Rheumatoid Factor Complement C4 Miscellaneous Test Crossmatch 12/27/16 12/27/16 12/27/16 05:00 05:35 12:24 WBC RBC Hgb 7.6 L Hct 22.8 L MCV MCH MCHC RDW Plt Count Lymph % (Auto) Brown % (Auto) Lymph # Brown # Baso # Seg Neutrophils % Seg Neuts % (Manual) Lymphocytes % (Manual) Monocytes % (Manual) Eosinophils % (Manual) Basophils % (Manual) Nucleated RBC % Seg Neutrophils # Seg Neutrophils # Man Lymphocytes # (Manual) Monocytes # (Manual) Eosinophils # (Manual) Basophils # (Manual) PT INR Fibrinogen dRVVT Confirm Interp Factor V Activity POC ABG pH POC ABG pCO2 POC ABG pO2 ABG pO2 ABG HCO3 ABG Base Excess ABG Hemoglobin Oxyhemoglobin Sodium Potassium Chloride Carbon Dioxide BUN Creatinine Glucose POC Glucose 115 H 131 H Lactic Acid Calcium Phosphorus Magnesium Direct Bilirubin AST ALT Alkaline Phosphatase Lactate Dehydrogenase Troponin T C-Reactive Protein Total Protein Albumin Prealbumin Triglycerides Cholesterol LDL Cholesterol Direct HDL Cholesterol PTH Intact Urine pH Urine WBC (Auto) Urine Creatinine Urine Total Protein Fluid Total Protein Vancomycin Trough Rheumatoid Factor Complement C4 Miscellaneous Test Crossmatch 12/27/16 12/28/16 12/28/16 17:16 00:18 04:00 WBC RBC Hgb Hct MCV MCH MCHC RDW Plt Count Lymph % (Auto) Brown % (Auto) Lymph # Brown # Baso # Seg Neutrophils % Seg Neuts % (Manual) Lymphocytes % (Manual) Monocytes % (Manual) Eosinophils % (Manual) Basophils % (Manual) Nucleated RBC % Seg Neutrophils # Seg Neutrophils # Man Lymphocytes # (Manual) Monocytes # (Manual) Eosinophils # (Manual) Basophils # (Manual) PT INR Fibrinogen dRVVT Confirm Interp Factor V Activity POC ABG pH POC ABG pCO2 POC ABG pO2 ABG pO2 ABG HCO3 ABG Base Excess ABG Hemoglobin Oxyhemoglobin Sodium Potassium 3.5 L Chloride Carbon Dioxide BUN 57 H Creatinine Glucose 118 H POC Glucose 136 H 120 H Lactic Acid Calcium 8.3 L Phosphorus Magnesium Direct Bilirubin AST ALT Alkaline Phosphatase Lactate Dehydrogenase Troponin T C-Reactive Protein Total Protein Albumin Prealbumin Triglycerides Cholesterol LDL Cholesterol Direct HDL Cholesterol PTH Intact Urine pH Urine WBC (Auto) Urine Creatinine Urine Total Protein Fluid Total Protein Vancomycin Trough Rheumatoid Factor Complement C4 Miscellaneous Test Crossmatch 12/28/16 12/28/16 12/28/16 04:00 05:11 08:30 WBC 17.0 H RBC 2.58 L Hgb 7.1 L Hct 22.0 L MCV MCH MCHC RDW 17.6 H Plt Count Lymph % (Auto) 12.2 L Brown % (Auto) Lymph # Brown # 1.1 H Baso # Seg Neutrophils % 80.5 H Seg Neuts % (Manual) Lymphocytes % (Manual) Monocytes % (Manual) Eosinophils % (Manual) Basophils % (Manual) Nucleated RBC % Seg Neutrophils # 13.7 H Seg Neutrophils # Man Lymphocytes # (Manual) Monocytes # (Manual) Eosinophils # (Manual) Basophils # (Manual) PT 16.1 H INR 1.23 H Fibrinogen dRVVT Confirm Interp Factor V Activity POC ABG pH POC ABG pCO2 POC ABG pO2 ABG pO2 ABG HCO3 ABG Base Excess ABG Hemoglobin Oxyhemoglobin Sodium Potassium Chloride Carbon Dioxide BUN Creatinine Glucose POC Glucose 122 H Lactic Acid Calcium Phosphorus Magnesium Direct Bilirubin AST ALT Alkaline Phosphatase Lactate Dehydrogenase Troponin T C-Reactive Protein Total Protein Albumin Prealbumin Triglycerides Cholesterol LDL Cholesterol Direct HDL Cholesterol PTH Intact Urine pH Urine WBC (Auto) Urine Creatinine Urine Total Protein Fluid Total Protein Vancomycin Trough Rheumatoid Factor Complement C4 Miscellaneous Test Crossmatch 12/28/16 12/28/16 12/28/16 12:27 16:32 23:46 WBC RBC Hgb Hct MCV MCH MCHC RDW Plt Count Lymph % (Auto) Brown % (Auto) Lymph # Brown # Baso # Seg Neutrophils % Seg Neuts % (Manual) Lymphocytes % (Manual) Monocytes % (Manual) Eosinophils % (Manual) Basophils % (Manual) Nucleated RBC % Seg Neutrophils # Seg Neutrophils # Man Lymphocytes # (Manual) Monocytes # (Manual) Eosinophils # (Manual) Basophils # (Manual) PT INR Fibrinogen dRVVT Confirm Interp Factor V Activity POC ABG pH POC ABG pCO2 POC ABG pO2 ABG pO2 ABG HCO3 ABG Base Excess ABG Hemoglobin Oxyhemoglobin Sodium Potassium Chloride Carbon Dioxide BUN Creatinine Glucose POC Glucose 127 H 117 H 108 H Lactic Acid Calcium Phosphorus Magnesium Direct Bilirubin AST ALT Alkaline Phosphatase Lactate Dehydrogenase Troponin T C-Reactive Protein Total Protein Albumin Prealbumin Triglycerides Cholesterol LDL Cholesterol Direct HDL Cholesterol PTH Intact Urine pH Urine WBC (Auto) Urine Creatinine Urine Total Protein Fluid Total Protein Vancomycin Trough Rheumatoid Factor Complement C4 Miscellaneous Test Crossmatch 12/29/16 12/29/16 12/29/16 05:15 05:15 05:32 WBC RBC Hgb Hct MCV MCH MCHC RDW Plt Count Lymph % (Auto) Brown % (Auto) Lymph # Brown # Baso # Seg Neutrophils % Seg Neuts % (Manual) Lymphocytes % (Manual) Monocytes % (Manual) Eosinophils % (Manual) Basophils % (Manual) Nucleated RBC % Seg Neutrophils # Seg Neutrophils # Man Lymphocytes # (Manual) Monocytes # (Manual) Eosinophils # (Manual) Basophils # (Manual) PT INR Fibrinogen dRVVT Confirm Interp Factor V Activity POC ABG pH POC ABG pCO2 POC ABG pO2 ABG pO2 ABG HCO3 ABG Base Excess ABG Hemoglobin Oxyhemoglobin Sodium Potassium Chloride Carbon Dioxide BUN 74 H Creatinine 1.6 H Glucose 111 H POC Glucose 123 H Lactic Acid Calcium Phosphorus Magnesium Direct Bilirubin AST ALT Alkaline Phosphatase Lactate Dehydrogenase Troponin T C-Reactive Protein Total Protein Albumin Prealbumin 0.110 L Triglycerides Cholesterol LDL Cholesterol Direct HDL Cholesterol PTH Intact Urine pH Urine WBC (Auto) Urine Creatinine Urine Total Protein Fluid Total Protein Vancomycin Trough Rheumatoid Factor Complement C4 Miscellaneous Test Crossmatch 12/29/16 12/29/16 12/29/16 11:43 13:45 14:00 WBC 13.8 H RBC 2.26 L Hgb 6.3 L Hct 20.4 L MCV MCH MCHC RDW 18.3 H Plt Count Lymph % (Auto) Brown % (Auto) Lymph # Brown # 0.9 H Baso # Seg Neutrophils % 78.6 H Seg Neuts % (Manual) Lymphocytes % (Manual) Monocytes % (Manual) Eosinophils % (Manual) Basophils % (Manual) Nucleated RBC % Seg Neutrophils # 10.8 H Seg Neutrophils # Man Lymphocytes # (Manual) Monocytes # (Manual) Eosinophils # (Manual) Basophils # (Manual) PT INR Fibrinogen dRVVT Confirm Interp Factor V Activity POC ABG pH POC ABG pCO2 POC ABG pO2 ABG pO2 ABG HCO3 ABG Base Excess ABG Hemoglobin Oxyhemoglobin Sodium Potassium Chloride Carbon Dioxide BUN Creatinine Glucose POC Glucose 133 H Lactic Acid Calcium Phosphorus Magnesium Direct Bilirubin AST ALT Alkaline Phosphatase Lactate Dehydrogenase Troponin T C-Reactive Protein Total Protein Albumin Prealbumin Triglycerides Cholesterol LDL Cholesterol Direct HDL Cholesterol PTH Intact Urine pH Urine WBC (Auto) Urine Creatinine Urine Total Protein Fluid Total Protein Vancomycin Trough Rheumatoid Factor Complement C4 Miscellaneous Test Crossmatch See Detail 12/29/16 12/29/16 12/29/16 17:03 23:15 23:22 WBC RBC Hgb 7.3 L Hct 22.3 L MCV MCH MCHC RDW Plt Count Lymph % (Auto) Brown % (Auto) Lymph # Brown # Baso # Seg Neutrophils % Seg Neuts % (Manual) Lymphocytes % (Manual) Monocytes % (Manual) Eosinophils % (Manual) Basophils % (Manual) Nucleated RBC % Seg Neutrophils # Seg Neutrophils # Man Lymphocytes # (Manual) Monocytes # (Manual) Eosinophils # (Manual) Basophils # (Manual) PT INR Fibrinogen dRVVT Confirm Interp Factor V Activity POC ABG pH POC ABG pCO2 POC ABG pO2 ABG pO2 ABG HCO3 ABG Base Excess ABG Hemoglobin Oxyhemoglobin Sodium Potassium Chloride Carbon Dioxide BUN Creatinine Glucose POC Glucose 139 H 120 H Lactic Acid Calcium Phosphorus Magnesium Direct Bilirubin AST ALT Alkaline Phosphatase Lactate Dehydrogenase Troponin T C-Reactive Protein Total Protein Albumin Prealbumin Triglycerides Cholesterol LDL Cholesterol Direct HDL Cholesterol PTH Intact Urine pH Urine WBC (Auto) Urine Creatinine Urine Total Protein Fluid Total Protein Vancomycin Trough Rheumatoid Factor Complement C4 Miscellaneous Test Crossmatch 12/30/16 12/30/16 12/30/16 04:20 04:20 05:43 WBC 15.6 H RBC 2.81 L Hgb 8.0 L Hct 24.0 L MCV MCH MCHC RDW 16.9 H Plt Count Lymph % (Auto) Brown % (Auto) Lymph # Brown # 1.0 H Baso # Seg Neutrophils % 76.2 H Seg Neuts % (Manual) Lymphocytes % (Manual) Monocytes % (Manual) Eosinophils % (Manual) Basophils % (Manual) Nucleated RBC % Seg Neutrophils # 11.9 H Seg Neutrophils # Man Lymphocytes # (Manual) Monocytes # (Manual) Eosinophils # (Manual) Basophils # (Manual) PT INR Fibrinogen dRVVT Confirm Interp Factor V Activity POC ABG pH POC ABG pCO2 POC ABG pO2 ABG pO2 ABG HCO3 ABG Base Excess ABG Hemoglobin Oxyhemoglobin Sodium Potassium Chloride Carbon Dioxide BUN 87 H Creatinine 1.8 H Glucose 119 H POC Glucose 115 H Lactic Acid Calcium Phosphorus Magnesium Direct Bilirubin AST ALT Alkaline Phosphatase Lactate Dehydrogenase Troponin T C-Reactive Protein Total Protein Albumin Prealbumin Triglycerides Cholesterol LDL Cholesterol Direct HDL Cholesterol PTH Intact Urine pH Urine WBC (Auto) Urine Creatinine Urine Total Protein Fluid Total Protein Vancomycin Trough Rheumatoid Factor Complement C4 Miscellaneous Test Crossmatch 12/30/16 12/30/16 12/31/16 17:27 23:21 04:00 WBC RBC Hgb Hct MCV MCH MCHC RDW Plt Count Lymph % (Auto) Brown % (Auto) Lymph # Brown # Baso # Seg Neutrophils % Seg Neuts % (Manual) Lymphocytes % (Manual) Monocytes % (Manual) Eosinophils % (Manual) Basophils % (Manual) Nucleated RBC % Seg Neutrophils # Seg Neutrophils # Man Lymphocytes # (Manual) Monocytes # (Manual) Eosinophils # (Manual) Basophils # (Manual) PT INR Fibrinogen dRVVT Confirm Interp Factor V Activity POC ABG pH POC ABG pCO2 POC ABG pO2 ABG pO2 ABG HCO3 ABG Base Excess ABG Hemoglobin Oxyhemoglobin Sodium Potassium Chloride Carbon Dioxide BUN 59 H Creatinine Glucose 298 H POC Glucose 144 H 125 H Lactic Acid Calcium Phosphorus Magnesium Direct Bilirubin AST ALT Alkaline Phosphatase Lactate Dehydrogenase Troponin T C-Reactive Protein Total Protein Albumin Prealbumin Triglycerides Cholesterol LDL Cholesterol Direct HDL Cholesterol PTH Intact Urine pH Urine WBC (Auto) Urine Creatinine Urine Total Protein Fluid Total Protein Vancomycin Trough Rheumatoid Factor Complement C4 Miscellaneous Test Crossmatch 12/31/16 12/31/16 12/31/16 05:11 12:18 18:17 WBC RBC Hgb Hct MCV MCH MCHC RDW Plt Count Lymph % (Auto) Brown % (Auto) Lymph # Brown # Baso # Seg Neutrophils % Seg Neuts % (Manual) Lymphocytes % (Manual) Monocytes % (Manual) Eosinophils % (Manual) Basophils % (Manual) Nucleated RBC % Seg Neutrophils # Seg Neutrophils # Man Lymphocytes # (Manual) Monocytes # (Manual) Eosinophils # (Manual) Basophils # (Manual) PT INR Fibrinogen dRVVT Confirm Interp Factor V Activity POC ABG pH POC ABG pCO2 POC ABG pO2 ABG pO2 ABG HCO3 ABG Base Excess ABG Hemoglobin Oxyhemoglobin Sodium Potassium Chloride Carbon Dioxide BUN Creatinine Glucose POC Glucose 167 H 125 H 133 H Lactic Acid Calcium Phosphorus Magnesium Direct Bilirubin AST ALT Alkaline Phosphatase Lactate Dehydrogenase Troponin T C-Reactive Protein Total Protein Albumin Prealbumin Triglycerides Cholesterol LDL Cholesterol Direct HDL Cholesterol PTH Intact Urine pH Urine WBC (Auto) Urine Creatinine Urine Total Protein Fluid Total Protein Vancomycin Trough Rheumatoid Factor Complement C4 Miscellaneous Test Crossmatch 12/31/16 01/01/17 01/01/17 23:55 05:00 05:12 WBC RBC Hgb Hct MCV MCH MCHC RDW Plt Count Lymph % (Auto) Brown % (Auto) Lymph # Brown # Baso # Seg Neutrophils % Seg Neuts % (Manual) Lymphocytes % (Manual) Monocytes % (Manual) Eosinophils % (Manual) Basophils % (Manual) Nucleated RBC % Seg Neutrophils # Seg Neutrophils # Man Lymphocytes # (Manual) Monocytes # (Manual) Eosinophils # (Manual) Basophils # (Manual) PT INR Fibrinogen dRVVT Confirm Interp Factor V Activity POC ABG pH POC ABG pCO2 POC ABG pO2 ABG pO2 ABG HCO3 ABG Base Excess ABG Hemoglobin Oxyhemoglobin Sodium Potassium Chloride Carbon Dioxide BUN 76 H Creatinine 1.5 H Glucose 109 H POC Glucose 129 H 129 H Lactic Acid Calcium Phosphorus Magnesium Direct Bilirubin AST ALT Alkaline Phosphatase 536 H Lactate Dehydrogenase Troponin T C-Reactive Protein Total Protein Albumin 1.5 L Prealbumin Triglycerides Cholesterol LDL Cholesterol Direct HDL Cholesterol PTH Intact Urine pH Urine WBC (Auto) Urine Creatinine Urine Total Protein Fluid Total Protein Vancomycin Trough Rheumatoid Factor Complement C4 Miscellaneous Test Crossmatch 01/01/17 01/01/17 01/01/17 12:25 17:01 23:32 WBC RBC Hgb Hct MCV MCH MCHC RDW Plt Count Lymph % (Auto) Brown % (Auto) Lymph # Brown # Baso # Seg Neutrophils % Seg Neuts % (Manual) Lymphocytes % (Manual) Monocytes % (Manual) Eosinophils % (Manual) Basophils % (Manual) Nucleated RBC % Seg Neutrophils # Seg Neutrophils # Man Lymphocytes # (Manual) Monocytes # (Manual) Eosinophils # (Manual) Basophils # (Manual) PT INR Fibrinogen dRVVT Confirm Interp Factor V Activity POC ABG pH POC ABG pCO2 POC ABG pO2 ABG pO2 ABG HCO3 ABG Base Excess ABG Hemoglobin Oxyhemoglobin Sodium Potassium Chloride Carbon Dioxide BUN Creatinine Glucose POC Glucose 140 H 142 H 112 H Lactic Acid Calcium Phosphorus Magnesium Direct Bilirubin AST ALT Alkaline Phosphatase Lactate Dehydrogenase Troponin T C-Reactive Protein Total Protein Albumin Prealbumin Triglycerides Cholesterol LDL Cholesterol Direct HDL Cholesterol PTH Intact Urine pH Urine WBC (Auto) Urine Creatinine Urine Total Protein Fluid Total Protein Vancomycin Trough Rheumatoid Factor Complement C4 Miscellaneous Test Crossmatch 01/02/17 01/02/17 01/02/17 04:56 06:00 11:37 WBC RBC Hgb Hct MCV MCH MCHC RDW Plt Count Lymph % (Auto) Brown % (Auto) Lymph # Brown # Baso # Seg Neutrophils % Seg Neuts % (Manual) Lymphocytes % (Manual) Monocytes % (Manual) Eosinophils % (Manual) Basophils % (Manual) Nucleated RBC % Seg Neutrophils # Seg Neutrophils # Man Lymphocytes # (Manual) Monocytes # (Manual) Eosinophils # (Manual) Basophils # (Manual) PT INR Fibrinogen dRVVT Confirm Interp Factor V Activity POC ABG pH POC ABG pCO2 POC ABG pO2 ABG pO2 ABG HCO3 ABG Base Excess ABG Hemoglobin Oxyhemoglobin Sodium Potassium Chloride Carbon Dioxide BUN 88 H Creatinine 1.7 H Glucose 113 H POC Glucose 136 H 200 H Lactic Acid Calcium Phosphorus Magnesium Direct Bilirubin AST ALT Alkaline Phosphatase Lactate Dehydrogenase Troponin T C-Reactive Protein Total Protein Albumin Prealbumin Triglycerides Cholesterol LDL Cholesterol Direct HDL Cholesterol PTH Intact Urine pH Urine WBC (Auto) Urine Creatinine Urine Total Protein Fluid Total Protein Vancomycin Trough Rheumatoid Factor Complement C4 Miscellaneous Test Crossmatch 01/02/17 01/02/17 01/03/17 17:42 22:52 04:54 WBC RBC Hgb Hct MCV MCH MCHC RDW Plt Count Lymph % (Auto) Brown % (Auto) Lymph # Brown # Baso # Seg Neutrophils % Seg Neuts % (Manual) Lymphocytes % (Manual) Monocytes % (Manual) Eosinophils % (Manual) Basophils % (Manual) Nucleated RBC % Seg Neutrophils # Seg Neutrophils # Man Lymphocytes # (Manual) Monocytes # (Manual) Eosinophils # (Manual) Basophils # (Manual) PT INR Fibrinogen dRVVT Confirm Interp Factor V Activity POC ABG pH POC ABG pCO2 POC ABG pO2 ABG pO2 ABG HCO3 ABG Base Excess ABG Hemoglobin Oxyhemoglobin Sodium Potassium Chloride Carbon Dioxide BUN Creatinine Glucose POC Glucose 112 H 133 H 111 H Lactic Acid Calcium Phosphorus Magnesium Direct Bilirubin AST ALT Alkaline Phosphatase Lactate Dehydrogenase Troponin T C-Reactive Protein Total Protein Albumin Prealbumin Triglycerides Cholesterol LDL Cholesterol Direct HDL Cholesterol PTH Intact Urine pH Urine WBC (Auto) Urine Creatinine Urine Total Protein Fluid Total Protein Vancomycin Trough Rheumatoid Factor Complement C4 Miscellaneous Test Crossmatch 01/03/17 01/03/17 01/03/17 05:00 05:00 14:02 WBC 11.2 H RBC 2.56 L Hgb 7.2 L Hct 22.3 L MCV MCH MCHC RDW 17.3 H Plt Count Lymph % (Auto) Brown % (Auto) 10.0 H Lymph # Brown # 1.1 H Baso # Seg Neutrophils % 70.5 H Seg Neuts % (Manual) Lymphocytes % (Manual) Monocytes % (Manual) Eosinophils % (Manual) Basophils % (Manual) Nucleated RBC % Seg Neutrophils # 7.9 H Seg Neutrophils # Man Lymphocytes # (Manual) Monocytes # (Manual) Eosinophils # (Manual) Basophils # (Manual) PT INR Fibrinogen dRVVT Confirm Interp Factor V Activity POC ABG pH POC ABG pCO2 POC ABG pO2 ABG pO2 ABG HCO3 ABG Base Excess ABG Hemoglobin Oxyhemoglobin Sodium Potassium Chloride Carbon Dioxide BUN 60 H Creatinine 1.3 H Glucose 110 H POC Glucose 119 H Lactic Acid Calcium Phosphorus Magnesium Direct Bilirubin AST ALT Alkaline Phosphatase Lactate Dehydrogenase Troponin T C-Reactive Protein Total Protein Albumin Prealbumin Triglycerides Cholesterol LDL Cholesterol Direct HDL Cholesterol PTH Intact Urine pH Urine WBC (Auto) Urine Creatinine Urine Total Protein Fluid Total Protein Vancomycin Trough Rheumatoid Factor Complement C4 Miscellaneous Test Crossmatch 01/03/17 01/03/17 01/04/17 18:13 23:40 05:57 WBC RBC Hgb Hct MCV MCH MCHC RDW Plt Count Lymph % (Auto) Brown % (Auto) Lymph # Brown # Baso # Seg Neutrophils % Seg Neuts % (Manual) Lymphocytes % (Manual) Monocytes % (Manual) Eosinophils % (Manual) Basophils % (Manual) Nucleated RBC % Seg Neutrophils # Seg Neutrophils # Man Lymphocytes # (Manual) Monocytes # (Manual) Eosinophils # (Manual) Basophils # (Manual) PT INR Fibrinogen dRVVT Confirm Interp Factor V Activity POC ABG pH POC ABG pCO2 POC ABG pO2 ABG pO2 ABG HCO3 ABG Base Excess ABG Hemoglobin Oxyhemoglobin Sodium Potassium Chloride Carbon Dioxide BUN Creatinine Glucose POC Glucose 107 H 129 H 111 H Lactic Acid Calcium Phosphorus Magnesium Direct Bilirubin AST ALT Alkaline Phosphatase Lactate Dehydrogenase Troponin T C-Reactive Protein Total Protein Albumin Prealbumin Triglycerides Cholesterol LDL Cholesterol Direct HDL Cholesterol PTH Intact Urine pH Urine WBC (Auto) Urine Creatinine Urine Total Protein Fluid Total Protein Vancomycin Trough Rheumatoid Factor Complement C4 Miscellaneous Test Crossmatch 01/04/17 01/04/17 01/04/17 12:46 15:27 17:11 WBC RBC Hgb Hct MCV MCH MCHC RDW Plt Count Lymph % (Auto) Brown % (Auto) Lymph # Brown # Baso # Seg Neutrophils % Seg Neuts % (Manual) Lymphocytes % (Manual) Monocytes % (Manual) Eosinophils % (Manual) Basophils % (Manual) Nucleated RBC % Seg Neutrophils # Seg Neutrophils # Man Lymphocytes # (Manual) Monocytes # (Manual) Eosinophils # (Manual) Basophils # (Manual) PT INR Fibrinogen dRVVT Confirm Interp Factor V Activity POC ABG pH POC ABG pCO2 POC ABG pO2 ABG pO2 ABG HCO3 ABG Base Excess ABG Hemoglobin Oxyhemoglobin Sodium Potassium Chloride Carbon Dioxide BUN 43 H Creatinine Glucose 124 H POC Glucose 159 H 125 H Lactic Acid Calcium 8.0 L Phosphorus 2.10 L Magnesium Direct Bilirubin AST ALT Alkaline Phosphatase Lactate Dehydrogenase Troponin T C-Reactive Protein Total Protein Albumin Prealbumin Triglycerides Cholesterol LDL Cholesterol Direct HDL Cholesterol PTH Intact Urine pH Urine WBC (Auto) Urine Creatinine Urine Total Protein Fluid Total Protein Vancomycin Trough Rheumatoid Factor Complement C4 Miscellaneous Test Crossmatch 01/04/17 01/05/17 01/05/17 23:31 04:00 05:46 WBC RBC Hgb Hct MCV MCH MCHC RDW Plt Count Lymph % (Auto) Brown % (Auto) Lymph # Brown # Baso # Seg Neutrophils % Seg Neuts % (Manual) Lymphocytes % (Manual) Monocytes % (Manual) Eosinophils % (Manual) Basophils % (Manual) Nucleated RBC % Seg Neutrophils # Seg Neutrophils # Man Lymphocytes # (Manual) Monocytes # (Manual) Eosinophils # (Manual) Basophils # (Manual) PT INR Fibrinogen dRVVT Confirm Interp Factor V Activity POC ABG pH POC ABG pCO2 POC ABG pO2 ABG pO2 ABG HCO3 ABG Base Excess ABG Hemoglobin Oxyhemoglobin Sodium Potassium Chloride Carbon Dioxide BUN 52 H Creatinine 1.3 H Glucose 113 H POC Glucose 123 H 118 H Lactic Acid Calcium Phosphorus 2.40 L Magnesium Direct Bilirubin AST ALT Alkaline Phosphatase Lactate Dehydrogenase Troponin T C-Reactive Protein Total Protein Albumin Prealbumin Triglycerides Cholesterol LDL Cholesterol Direct HDL Cholesterol PTH Intact Urine pH Urine WBC (Auto) Urine Creatinine Urine Total Protein Fluid Total Protein Vancomycin Trough Rheumatoid Factor Complement C4 Miscellaneous Test Crossmatch 01/05/17 01/05/17 01/05/17 11:41 17:48 23:27 WBC RBC Hgb Hct MCV MCH MCHC RDW Plt Count Lymph % (Auto) Brown % (Auto) Lymph # Brown # Baso # Seg Neutrophils % Seg Neuts % (Manual) Lymphocytes % (Manual) Monocytes % (Manual) Eosinophils % (Manual) Basophils % (Manual) Nucleated RBC % Seg Neutrophils # Seg Neutrophils # Man Lymphocytes # (Manual) Monocytes # (Manual) Eosinophils # (Manual) Basophils # (Manual) PT INR Fibrinogen dRVVT Confirm Interp Factor V Activity POC ABG pH POC ABG pCO2 POC ABG pO2 ABG pO2 ABG HCO3 ABG Base Excess ABG Hemoglobin Oxyhemoglobin Sodium Potassium Chloride Carbon Dioxide BUN Creatinine Glucose POC Glucose 163 H 142 H 155 H Lactic Acid Calcium Phosphorus Magnesium Direct Bilirubin AST ALT Alkaline Phosphatase Lactate Dehydrogenase Troponin T C-Reactive Protein Total Protein Albumin Prealbumin Triglycerides Cholesterol LDL Cholesterol Direct HDL Cholesterol PTH Intact Urine pH Urine WBC (Auto) Urine Creatinine Urine Total Protein Fluid Total Protein Vancomycin Trough Rheumatoid Factor Complement C4 Miscellaneous Test Crossmatch 01/06/17 01/06/17 01/06/17 05:20 07:35 11:18 WBC RBC Hgb Hct MCV MCH MCHC RDW Plt Count Lymph % (Auto) Brown % (Auto) Lymph # Brown # Baso # Seg Neutrophils % Seg Neuts % (Manual) Lymphocytes % (Manual) Monocytes % (Manual) Eosinophils % (Manual) Basophils % (Manual) Nucleated RBC % Seg Neutrophils # Seg Neutrophils # Man Lymphocytes # (Manual) Monocytes # (Manual) Eosinophils # (Manual) Basophils # (Manual) PT INR Fibrinogen dRVVT Confirm Interp Factor V Activity POC ABG pH POC ABG pCO2 POC ABG pO2 ABG pO2 ABG HCO3 ABG Base Excess ABG Hemoglobin Oxyhemoglobin Sodium Potassium Chloride Carbon Dioxide BUN 74 H Creatinine 1.6 H Glucose 135 H POC Glucose 108 H 149 H Lactic Acid Calcium Phosphorus Magnesium Direct Bilirubin AST ALT Alkaline Phosphatase Lactate Dehydrogenase Troponin T C-Reactive Protein Total Protein Albumin Prealbumin Triglycerides Cholesterol LDL Cholesterol Direct HDL Cholesterol PTH Intact Urine pH Urine WBC (Auto) Urine Creatinine Urine Total Protein Fluid Total Protein Vancomycin Trough Rheumatoid Factor Complement C4 Miscellaneous Test Crossmatch 01/06/17 01/07/17 01/07/17 17:17 00:23 05:31 WBC RBC Hgb Hct MCV MCH MCHC RDW Plt Count Lymph % (Auto) Brown % (Auto) Lymph # Brown # Baso # Seg Neutrophils % Seg Neuts % (Manual) Lymphocytes % (Manual) Monocytes % (Manual) Eosinophils % (Manual) Basophils % (Manual) Nucleated RBC % Seg Neutrophils # Seg Neutrophils # Man Lymphocytes # (Manual) Monocytes # (Manual) Eosinophils # (Manual) Basophils # (Manual) PT INR Fibrinogen dRVVT Confirm Interp Factor V Activity POC ABG pH POC ABG pCO2 POC ABG pO2 ABG pO2 ABG HCO3 ABG Base Excess ABG Hemoglobin Oxyhemoglobin Sodium Potassium Chloride Carbon Dioxide BUN Creatinine Glucose POC Glucose 146 H 165 H 153 H Lactic Acid Calcium Phosphorus Magnesium Direct Bilirubin AST ALT Alkaline Phosphatase Lactate Dehydrogenase Troponin T C-Reactive Protein Total Protein Albumin Prealbumin Triglycerides Cholesterol LDL Cholesterol Direct HDL Cholesterol PTH Intact Urine pH Urine WBC (Auto) Urine Creatinine Urine Total Protein Fluid Total Protein Vancomycin Trough Rheumatoid Factor Complement C4 Miscellaneous Test Crossmatch 01/07/17 01/07/17 01/07/17 06:00 11:39 17:11 WBC RBC Hgb Hct MCV MCH MCHC RDW Plt Count Lymph % (Auto) Brown % (Auto) Lymph # Brown # Baso # Seg Neutrophils % Seg Neuts % (Manual) Lymphocytes % (Manual) Monocytes % (Manual) Eosinophils % (Manual) Basophils % (Manual) Nucleated RBC % Seg Neutrophils # Seg Neutrophils # Man Lymphocytes # (Manual) Monocytes # (Manual) Eosinophils # (Manual) Basophils # (Manual) PT INR Fibrinogen dRVVT Confirm Interp Factor V Activity POC ABG pH POC ABG pCO2 POC ABG pO2 ABG pO2 ABG HCO3 ABG Base Excess ABG Hemoglobin Oxyhemoglobin Sodium Potassium Chloride Carbon Dioxide BUN 42 H Creatinine Glucose 175 H POC Glucose 163 H 163 H Lactic Acid Calcium Phosphorus 2.40 L D Magnesium Direct Bilirubin AST ALT Alkaline Phosphatase Lactate Dehydrogenase Troponin T C-Reactive Protein Total Protein Albumin Prealbumin Triglycerides Cholesterol LDL Cholesterol Direct HDL Cholesterol PTH Intact Urine pH Urine WBC (Auto) Urine Creatinine Urine Total Protein Fluid Total Protein Vancomycin Trough Rheumatoid Factor Complement C4 Miscellaneous Test Crossmatch 01/07/17 01/08/17 01/08/17 23:40 05:00 05:00 WBC 27.4 H RBC 2.27 L Hgb 6.1 L Hct 20.4 L MCV MCH 27 L MCHC RDW 17.8 H Plt Count Lymph % (Auto) Brown % (Auto) Lymph # Brown # Baso # Seg Neutrophils % Seg Neuts % (Manual) Lymphocytes % (Manual) Monocytes % (Manual) Eosinophils % (Manual) Basophils % (Manual) Nucleated RBC % Seg Neutrophils # Seg Neutrophils # Man Lymphocytes # (Manual) Monocytes # (Manual) Eosinophils # (Manual) Basophils # (Manual) PT INR Fibrinogen dRVVT Confirm Interp Factor V Activity POC ABG pH POC ABG pCO2 POC ABG pO2 ABG pO2 ABG HCO3 ABG Base Excess ABG Hemoglobin Oxyhemoglobin Sodium Potassium Chloride Carbon Dioxide 16 L D BUN 62 H Creatinine 1.6 H D Glucose 103 H POC Glucose 135 H Lactic Acid Calcium Phosphorus Magnesium Direct Bilirubin AST ALT Alkaline Phosphatase Lactate Dehydrogenase Troponin T C-Reactive Protein Total Protein Albumin Prealbumin Triglycerides Cholesterol LDL Cholesterol Direct HDL Cholesterol PTH Intact Urine pH Urine WBC (Auto) Urine Creatinine Urine Total Protein Fluid Total Protein Vancomycin Trough Rheumatoid Factor Complement C4 Miscellaneous Test Crossmatch 01/08/17 01/08/17 01/08/17 05:25 10:37 10:37 WBC RBC Hgb Hct MCV MCH MCHC RDW Plt Count Lymph % (Auto) Brown % (Auto) Lymph # Brown # Baso # Seg Neutrophils % Seg Neuts % (Manual) Lymphocytes % (Manual) Monocytes % (Manual) Eosinophils % (Manual) Basophils % (Manual) Nucleated RBC % Seg Neutrophils # Seg Neutrophils # Man Lymphocytes # (Manual) Monocytes # (Manual) Eosinophils # (Manual) Basophils # (Manual) PT INR Fibrinogen dRVVT Confirm Interp Factor V Activity POC ABG pH POC ABG pCO2 POC ABG pO2 ABG pO2 ABG HCO3 ABG Base Excess ABG Hemoglobin Oxyhemoglobin Sodium Potassium Chloride Carbon Dioxide BUN Creatinine Glucose POC Glucose 106 H Lactic Acid Calcium Phosphorus Magnesium Direct Bilirubin AST ALT Alkaline Phosphatase Lactate Dehydrogenase Troponin T C-Reactive Protein 24.40 H Total Protein Albumin Prealbumin Triglycerides Cholesterol LDL Cholesterol Direct HDL Cholesterol PTH Intact Urine pH Urine WBC (Auto) Urine Creatinine Urine Total Protein Fluid Total Protein Vancomycin Trough Rheumatoid Factor Complement C4 Miscellaneous Test Crossmatch See Detail 01/08/17 01/08/17 01/08/17 10:37 11:33 15:15 WBC RBC Hgb Hct MCV MCH MCHC RDW Plt Count Lymph % (Auto) Brown % (Auto) Lymph # Brown # Baso # Seg Neutrophils % Seg Neuts % (Manual) Lymphocytes % (Manual) Monocytes % (Manual) Eosinophils % (Manual) Basophils % (Manual) Nucleated RBC % Seg Neutrophils # Seg Neutrophils # Man Lymphocytes # (Manual) Monocytes # (Manual) Eosinophils # (Manual) Basophils # (Manual) PT INR Fibrinogen dRVVT Confirm Interp Factor V Activity POC ABG pH POC ABG pCO2 POC ABG pO2 ABG pO2 ABG HCO3 ABG Base Excess ABG Hemoglobin Oxyhemoglobin Sodium Potassium Chloride Carbon Dioxide BUN Creatinine Glucose POC Glucose 157 H Lactic Acid 9.70 H* 9.10 H* Calcium Phosphorus Magnesium Direct Bilirubin AST ALT Alkaline Phosphatase Lactate Dehydrogenase Troponin T C-Reactive Protein Total Protein Albumin Prealbumin Triglycerides Cholesterol LDL Cholesterol Direct HDL Cholesterol PTH Intact Urine pH Urine WBC (Auto) Urine Creatinine Urine Total Protein Fluid Total Protein Vancomycin Trough Rheumatoid Factor Complement C4 Miscellaneous Test Crossmatch 01/08/17 01/08/17 01/09/17 17:19 23:12 04:40 WBC RBC Hgb Hct MCV MCH MCHC RDW Plt Count Lymph % (Auto) Brown % (Auto) Lymph # Brown # Baso # Seg Neutrophils % Seg Neuts % (Manual) Lymphocytes % (Manual) Monocytes % (Manual) Eosinophils % (Manual) Basophils % (Manual) Nucleated RBC % Seg Neutrophils # Seg Neutrophils # Man Lymphocytes # (Manual) Monocytes # (Manual) Eosinophils # (Manual) Basophils # (Manual) PT INR Fibrinogen dRVVT Confirm Interp Factor V Activity POC ABG pH POC ABG pCO2 POC ABG pO2 ABG pO2 ABG HCO3 ABG Base Excess ABG Hemoglobin Oxyhemoglobin Sodium 147 H Potassium Chloride Carbon Dioxide BUN 82 H Creatinine 1.8 H Glucose 137 H POC Glucose 164 H 157 H Lactic Acid Calcium Phosphorus Magnesium Direct Bilirubin AST ALT Alkaline Phosphatase Lactate Dehydrogenase Troponin T C-Reactive Protein Total Protein Albumin Prealbumin Triglycerides Cholesterol LDL Cholesterol Direct HDL Cholesterol PTH Intact Urine pH Urine WBC (Auto) Urine Creatinine Urine Total Protein Fluid Total Protein Vancomycin Trough Rheumatoid Factor Complement C4 Miscellaneous Test Crossmatch 01/09/17 01/09/17 01/09/17 05:42 08:22 10:57 WBC RBC Hgb Hct MCV MCH MCHC RDW Plt Count Lymph % (Auto) Brown % (Auto) Lymph # Brown # Baso # Seg Neutrophils % Seg Neuts % (Manual) Lymphocytes % (Manual) Monocytes % (Manual) Eosinophils % (Manual) Basophils % (Manual) Nucleated RBC % Seg Neutrophils # Seg Neutrophils # Man Lymphocytes # (Manual) Monocytes # (Manual) Eosinophils # (Manual) Basophils # (Manual) PT INR Fibrinogen dRVVT Confirm Interp Factor V Activity POC ABG pH POC ABG pCO2 POC ABG pO2 ABG pO2 ABG HCO3 ABG Base Excess ABG Hemoglobin Oxyhemoglobin Sodium Potassium Chloride Carbon Dioxide BUN Creatinine Glucose POC Glucose 156 H 122 H Lactic Acid 2.30 H* Calcium Phosphorus Magnesium Direct Bilirubin AST ALT Alkaline Phosphatase Lactate Dehydrogenase Troponin T C-Reactive Protein Total Protein Albumin Prealbumin Triglycerides Cholesterol LDL Cholesterol Direct HDL Cholesterol PTH Intact Urine pH Urine WBC (Auto) Urine Creatinine Urine Total Protein Fluid Total Protein Vancomycin Trough Rheumatoid Factor Complement C4 Miscellaneous Test Crossmatch 01/09/17 01/09/17 01/09/17 13:30 17:14 18:45 WBC RBC Hgb Hct MCV MCH MCHC RDW Plt Count Lymph % (Auto) Brown % (Auto) Lymph # Brown # Baso # Seg Neutrophils % Seg Neuts % (Manual) Lymphocytes % (Manual) Monocytes % (Manual) Eosinophils % (Manual) Basophils % (Manual) Nucleated RBC % Seg Neutrophils # Seg Neutrophils # Man Lymphocytes # (Manual) Monocytes # (Manual) Eosinophils # (Manual) Basophils # (Manual) PT INR Fibrinogen dRVVT Confirm Interp Factor V Activity POC ABG pH POC ABG pCO2 POC ABG pO2 ABG pO2 ABG HCO3 ABG Base Excess ABG Hemoglobin Oxyhemoglobin Sodium Potassium Chloride Carbon Dioxide BUN Creatinine Glucose POC Glucose 127 H Lactic Acid Calcium Phosphorus Magnesium Direct Bilirubin AST ALT Alkaline Phosphatase Lactate Dehydrogenase Troponin T C-Reactive Protein 24.70 H Total Protein Albumin Prealbumin Triglycerides Cholesterol LDL Cholesterol Direct HDL Cholesterol PTH Intact Urine pH Urine WBC (Auto) Urine Creatinine Urine Total Protein Fluid Total Protein Vancomycin Trough Rheumatoid Factor Complement C4 Miscellaneous Test Flexitest 1 H Crossmatch 01/10/17 01/10/17 01/10/17 01:21 04:00 04:00 WBC 18.1 H RBC 3.22 L Hgb 8.8 L Hct 27.0 L D MCV MCH 27 L MCHC RDW 17.0 H Plt Count Lymph % (Auto) Brown % (Auto) Lymph # Brown # Baso # Seg Neutrophils % Seg Neuts % (Manual) Lymphocytes % (Manual) Monocytes % (Manual) Eosinophils % (Manual) Basophils % (Manual) Nucleated RBC % Seg Neutrophils # Seg Neutrophils # Man Lymphocytes # (Manual) Monocytes # (Manual) Eosinophils # (Manual) Basophils # (Manual) PT INR Fibrinogen dRVVT Confirm Interp Factor V Activity POC ABG pH POC ABG pCO2 POC ABG pO2 ABG pO2 ABG HCO3 ABG Base Excess ABG Hemoglobin Oxyhemoglobin Sodium Potassium Chloride Carbon Dioxide BUN 59 H Creatinine 1.3 H Glucose 122 H POC Glucose 160 H Lactic Acid Calcium Phosphorus Magnesium Direct Bilirubin AST ALT Alkaline Phosphatase Lactate Dehydrogenase Troponin T C-Reactive Protein Total Protein Albumin Prealbumin Triglycerides Cholesterol LDL Cholesterol Direct HDL Cholesterol PTH Intact Urine pH Urine WBC (Auto) Urine Creatinine Urine Total Protein Fluid Total Protein Vancomycin Trough Rheumatoid Factor Complement C4 Miscellaneous Test Crossmatch 01/10/17 01/10/17 01/10/17 05:36 12:14 17:55 WBC RBC Hgb Hct MCV MCH MCHC RDW Plt Count Lymph % (Auto) Brown % (Auto) Lymph # Brown # Baso # Seg Neutrophils % Seg Neuts % (Manual) Lymphocytes % (Manual) Monocytes % (Manual) Eosinophils % (Manual) Basophils % (Manual) Nucleated RBC % Seg Neutrophils # Seg Neutrophils # Man Lymphocytes # (Manual) Monocytes # (Manual) Eosinophils # (Manual) Basophils # (Manual) PT INR Fibrinogen dRVVT Confirm Interp Factor V Activity POC ABG pH POC ABG pCO2 POC ABG pO2 ABG pO2 ABG HCO3 ABG Base Excess ABG Hemoglobin Oxyhemoglobin Sodium Potassium Chloride Carbon Dioxide BUN Creatinine Glucose POC Glucose 163 H 120 H 144 H Lactic Acid Calcium Phosphorus Magnesium Direct Bilirubin AST ALT Alkaline Phosphatase Lactate Dehydrogenase Troponin T C-Reactive Protein Total Protein Albumin Prealbumin Triglycerides Cholesterol LDL Cholesterol Direct HDL Cholesterol PTH Intact Urine pH Urine WBC (Auto) Urine Creatinine Urine Total Protein Fluid Total Protein Vancomycin Trough Rheumatoid Factor Complement C4 Miscellaneous Test Crossmatch 01/11/17 01/11/17 01/11/17 00:09 04:00 04:00 WBC 15.8 H RBC 3.04 L Hgb 8.2 L Hct 25.5 L MCV MCH 27 L MCHC RDW 17.3 H Plt Count Lymph % (Auto) Brown % (Auto) Lymph # Brown # Baso # Seg Neutrophils % Seg Neuts % (Manual) Lymphocytes % (Manual) Monocytes % (Manual) Eosinophils % (Manual) Basophils % (Manual) Nucleated RBC % Seg Neutrophils # Seg Neutrophils # Man Lymphocytes # (Manual) Monocytes # (Manual) Eosinophils # (Manual) Basophils # (Manual) PT INR Fibrinogen dRVVT Confirm Interp Factor V Activity POC ABG pH POC ABG pCO2 POC ABG pO2 ABG pO2 ABG HCO3 ABG Base Excess ABG Hemoglobin Oxyhemoglobin Sodium Potassium Chloride Carbon Dioxide BUN 78 H Creatinine 1.6 H Glucose 109 H POC Glucose 122 H Lactic Acid Calcium Phosphorus Magnesium Direct Bilirubin AST ALT Alkaline Phosphatase Lactate Dehydrogenase Troponin T C-Reactive Protein Total Protein Albumin Prealbumin Triglycerides Cholesterol LDL Cholesterol Direct HDL Cholesterol PTH Intact Urine pH Urine WBC (Auto) Urine Creatinine Urine Total Protein Fluid Total Protein Vancomycin Trough Rheumatoid Factor Complement C4 Miscellaneous Test Crossmatch 01/11/17 01/11/17 01/11/17 12:46 18:23 23:42 WBC RBC Hgb Hct MCV MCH MCHC RDW Plt Count Lymph % (Auto) Brown % (Auto) Lymph # Brown # Baso # Seg Neutrophils % Seg Neuts % (Manual) Lymphocytes % (Manual) Monocytes % (Manual) Eosinophils % (Manual) Basophils % (Manual) Nucleated RBC % Seg Neutrophils # Seg Neutrophils # Man Lymphocytes # (Manual) Monocytes # (Manual) Eosinophils # (Manual) Basophils # (Manual) PT INR Fibrinogen dRVVT Confirm Interp Factor V Activity POC ABG pH POC ABG pCO2 POC ABG pO2 ABG pO2 ABG HCO3 ABG Base Excess ABG Hemoglobin Oxyhemoglobin Sodium Potassium Chloride Carbon Dioxide BUN Creatinine Glucose POC Glucose 148 H 125 H 124 H Lactic Acid Calcium Phosphorus Magnesium Direct Bilirubin AST ALT Alkaline Phosphatase Lactate Dehydrogenase Troponin T C-Reactive Protein Total Protein Albumin Prealbumin Triglycerides Cholesterol LDL Cholesterol Direct HDL Cholesterol PTH Intact Urine pH Urine WBC (Auto) Urine Creatinine Urine Total Protein Fluid Total Protein Vancomycin Trough Rheumatoid Factor Complement C4 Miscellaneous Test Crossmatch 01/12/17 01/12/17 01/12/17 04:30 04:30 05:47 WBC 15.8 H RBC 3.31 L Hgb 8.9 L Hct 27.9 L MCV MCH 27 L MCHC RDW 17.4 H Plt Count Lymph % (Auto) Brown % (Auto) Lymph # Brown # Baso # Seg Neutrophils % Seg Neuts % (Manual) Lymphocytes % (Manual) Monocytes % (Manual) Eosinophils % (Manual) Basophils % (Manual) Nucleated RBC % Seg Neutrophils # Seg Neutrophils # Man Lymphocytes # (Manual) Monocytes # (Manual) Eosinophils # (Manual) Basophils # (Manual) PT INR Fibrinogen dRVVT Confirm Interp Factor V Activity POC ABG pH POC ABG pCO2 POC ABG pO2 ABG pO2 ABG HCO3 ABG Base Excess ABG Hemoglobin Oxyhemoglobin Sodium Potassium Chloride Carbon Dioxide BUN 57 H Creatinine Glucose 121 H POC Glucose 110 H Lactic Acid Calcium Phosphorus 2.10 L Magnesium Direct Bilirubin AST ALT Alkaline Phosphatase Lactate Dehydrogenase Troponin T C-Reactive Protein Total Protein Albumin Prealbumin Triglycerides Cholesterol LDL Cholesterol Direct HDL Cholesterol PTH Intact Urine pH Urine WBC (Auto) Urine Creatinine Urine Total Protein Fluid Total Protein Vancomycin Trough Rheumatoid Factor Complement C4 Miscellaneous Test Crossmatch 01/12/17 01/12/17 01/12/17 11:35 17:45 23:14 WBC RBC Hgb Hct MCV MCH MCHC RDW Plt Count Lymph % (Auto) Brown % (Auto) Lymph # Brown # Baso # Seg Neutrophils % Seg Neuts % (Manual) Lymphocytes % (Manual) Monocytes % (Manual) Eosinophils % (Manual) Basophils % (Manual) Nucleated RBC % Seg Neutrophils # Seg Neutrophils # Man Lymphocytes # (Manual) Monocytes # (Manual) Eosinophils # (Manual) Basophils # (Manual) PT INR Fibrinogen dRVVT Confirm Interp Factor V Activity POC ABG pH POC ABG pCO2 POC ABG pO2 ABG pO2 ABG HCO3 ABG Base Excess ABG Hemoglobin Oxyhemoglobin Sodium Potassium Chloride Carbon Dioxide BUN Creatinine Glucose POC Glucose 146 H 117 H 123 H Lactic Acid Calcium Phosphorus Magnesium Direct Bilirubin AST ALT Alkaline Phosphatase Lactate Dehydrogenase Troponin T C-Reactive Protein Total Protein Albumin Prealbumin Triglycerides Cholesterol LDL Cholesterol Direct HDL Cholesterol PTH Intact Urine pH Urine WBC (Auto) Urine Creatinine Urine Total Protein Fluid Total Protein Vancomycin Trough Rheumatoid Factor Complement C4 Miscellaneous Test Crossmatch 01/13/17 01/13/17 01/13/17 05:32 06:00 12:10 WBC RBC Hgb Hct MCV MCH MCHC RDW Plt Count Lymph % (Auto) Brown % (Auto) Lymph # Brown # Baso # Seg Neutrophils % Seg Neuts % (Manual) Lymphocytes % (Manual) Monocytes % (Manual) Eosinophils % (Manual) Basophils % (Manual) Nucleated RBC % Seg Neutrophils # Seg Neutrophils # Man Lymphocytes # (Manual) Monocytes # (Manual) Eosinophils # (Manual) Basophils # (Manual) PT INR Fibrinogen dRVVT Confirm Interp Factor V Activity POC ABG pH POC ABG pCO2 POC ABG pO2 ABG pO2 ABG HCO3 ABG Base Excess ABG Hemoglobin Oxyhemoglobin Sodium Potassium Chloride Carbon Dioxide BUN 80 H Creatinine 1.4 H Glucose 106 H POC Glucose 106 H Lactic Acid Calcium Phosphorus Magnesium Direct Bilirubin AST ALT Alkaline Phosphatase Lactate Dehydrogenase Troponin T C-Reactive Protein Total Protein Albumin Prealbumin Triglycerides Cholesterol LDL Cholesterol Direct HDL Cholesterol PTH Intact Urine pH Urine WBC (Auto) Urine Creatinine Urine Total Protein Fluid Total Protein 3.0 L Vancomycin Trough Rheumatoid Factor Complement C4 Miscellaneous Test Crossmatch 01/13/17 01/13/17 01/13/17 12:17 15:50 17:30 WBC RBC Hgb Hct MCV MCH MCHC RDW Plt Count Lymph % (Auto) Brown % (Auto) Lymph # Brown # Baso # Seg Neutrophils % Seg Neuts % (Manual) Lymphocytes % (Manual) Monocytes % (Manual) Eosinophils % (Manual) Basophils % (Manual) Nucleated RBC % Seg Neutrophils # Seg Neutrophils # Man Lymphocytes # (Manual) Monocytes # (Manual) Eosinophils # (Manual) Basophils # (Manual) PT 15.4 H INR 1.16 H Fibrinogen dRVVT Confirm Interp Factor V Activity POC ABG pH POC ABG pCO2 POC ABG pO2 ABG pO2 ABG HCO3 ABG Base Excess ABG Hemoglobin Oxyhemoglobin Sodium Potassium Chloride Carbon Dioxide BUN Creatinine Glucose POC Glucose 168 H 110 H Lactic Acid Calcium Phosphorus Magnesium Direct Bilirubin AST ALT Alkaline Phosphatase Lactate Dehydrogenase Troponin T C-Reactive Protein Total Protein Albumin Prealbumin Triglycerides Cholesterol LDL Cholesterol Direct HDL Cholesterol PTH Intact Urine pH Urine WBC (Auto) Urine Creatinine Urine Total Protein Fluid Total Protein Vancomycin Trough Rheumatoid Factor Complement C4 Miscellaneous Test Crossmatch 01/13/17 01/14/17 01/14/17 23:42 05:24 05:30 WBC RBC Hgb Hct MCV MCH MCHC RDW Plt Count Lymph % (Auto) Brown % (Auto) Lymph # Brown # Baso # Seg Neutrophils % Seg Neuts % (Manual) Lymphocytes % (Manual) Monocytes % (Manual) Eosinophils % (Manual) Basophils % (Manual) Nucleated RBC % Seg Neutrophils # Seg Neutrophils # Man Lymphocytes # (Manual) Monocytes # (Manual) Eosinophils # (Manual) Basophils # (Manual) PT INR Fibrinogen dRVVT Confirm Interp Factor V Activity POC ABG pH POC ABG pCO2 POC ABG pO2 ABG pO2 ABG HCO3 ABG Base Excess ABG Hemoglobin Oxyhemoglobin Sodium Potassium Chloride Carbon Dioxide BUN 58 H Creatinine Glucose 114 H POC Glucose 155 H 121 H Lactic Acid Calcium Phosphorus Magnesium Direct Bilirubin AST ALT Alkaline Phosphatase Lactate Dehydrogenase Troponin T C-Reactive Protein Total Protein Albumin Prealbumin Triglycerides Cholesterol LDL Cholesterol Direct HDL Cholesterol PTH Intact Urine pH Urine WBC (Auto) Urine Creatinine Urine Total Protein Fluid Total Protein Vancomycin Trough Rheumatoid Factor Complement C4 Miscellaneous Test Crossmatch 01/14/17 01/14/17 01/15/17 12:48 17:36 00:15 WBC RBC Hgb Hct MCV MCH MCHC RDW Plt Count Lymph % (Auto) Brown % (Auto) Lymph # Brown # Baso # Seg Neutrophils % Seg Neuts % (Manual) Lymphocytes % (Manual) Monocytes % (Manual) Eosinophils % (Manual) Basophils % (Manual) Nucleated RBC % Seg Neutrophils # Seg Neutrophils # Man Lymphocytes # (Manual) Monocytes # (Manual) Eosinophils # (Manual) Basophils # (Manual) PT INR Fibrinogen dRVVT Confirm Interp Factor V Activity POC ABG pH POC ABG pCO2 POC ABG pO2 ABG pO2 ABG HCO3 ABG Base Excess ABG Hemoglobin Oxyhemoglobin Sodium Potassium Chloride Carbon Dioxide BUN Creatinine Glucose POC Glucose 130 H 135 H 132 H Lactic Acid Calcium Phosphorus Magnesium Direct Bilirubin AST ALT Alkaline Phosphatase Lactate Dehydrogenase Troponin T C-Reactive Protein Total Protein Albumin Prealbumin Triglycerides Cholesterol LDL Cholesterol Direct HDL Cholesterol PTH Intact Urine pH Urine WBC (Auto) Urine Creatinine Urine Total Protein Fluid Total Protein Vancomycin Trough Rheumatoid Factor Complement C4 Miscellaneous Test Crossmatch 01/15/17 01/15/17 01/15/17 05:01 11:55 12:45 WBC 16.2 H RBC 3.00 L Hgb 8.1 L Hct 25.4 L MCV MCH 27 L MCHC RDW 17.6 H Plt Count Lymph % (Auto) 11.7 L Brown % (Auto) 7.8 H Lymph # Brown # 1.3 H Baso # Seg Neutrophils % 80.1 H Seg Neuts % (Manual) Lymphocytes % (Manual) Monocytes % (Manual) Eosinophils % (Manual) Basophils % (Manual) Nucleated RBC % Seg Neutrophils # 13.0 H Seg Neutrophils # Man Lymphocytes # (Manual) Monocytes # (Manual) Eosinophils # (Manual) Basophils # (Manual) PT INR Fibrinogen dRVVT Confirm Interp Factor V Activity POC ABG pH POC ABG pCO2 POC ABG pO2 ABG pO2 ABG HCO3 ABG Base Excess ABG Hemoglobin Oxyhemoglobin Sodium Potassium Chloride Carbon Dioxide BUN Creatinine Glucose POC Glucose 126 H 125 H Lactic Acid Calcium Phosphorus Magnesium Direct Bilirubin AST ALT Alkaline Phosphatase Lactate Dehydrogenase Troponin T C-Reactive Protein Total Protein Albumin Prealbumin Triglycerides Cholesterol LDL Cholesterol Direct HDL Cholesterol PTH Intact Urine pH Urine WBC (Auto) Urine Creatinine Urine Total Protein Fluid Total Protein Vancomycin Trough Rheumatoid Factor Complement C4 Miscellaneous Test Crossmatch 01/15/17 01/15/17 01/15/17 12:45 17:31 23:39 WBC RBC Hgb Hct MCV MCH MCHC RDW Plt Count Lymph % (Auto) Brown % (Auto) Lymph # Brown # Baso # Seg Neutrophils % Seg Neuts % (Manual) Lymphocytes % (Manual) Monocytes % (Manual) Eosinophils % (Manual) Basophils % (Manual) Nucleated RBC % Seg Neutrophils # Seg Neutrophils # Man Lymphocytes # (Manual) Monocytes # (Manual) Eosinophils # (Manual) Basophils # (Manual) PT INR Fibrinogen dRVVT Confirm Interp Factor V Activity POC ABG pH POC ABG pCO2 POC ABG pO2 ABG pO2 ABG HCO3 ABG Base Excess ABG Hemoglobin Oxyhemoglobin Sodium 136 L Potassium Chloride Carbon Dioxide BUN 87 H Creatinine 1.7 H Glucose 108 H POC Glucose 129 H 112 H Lactic Acid Calcium Phosphorus Magnesium Direct Bilirubin AST ALT Alkaline Phosphatase Lactate Dehydrogenase Troponin T C-Reactive Protein Total Protein Albumin Prealbumin Triglycerides Cholesterol LDL Cholesterol Direct HDL Cholesterol PTH Intact Urine pH Urine WBC (Auto) Urine Creatinine Urine Total Protein Fluid Total Protein Vancomycin Trough Rheumatoid Factor Complement C4 Miscellaneous Test Crossmatch 01/16/17 01/16/17 01/16/17 05:23 11:42 12:32 WBC RBC Hgb Hct MCV MCH MCHC RDW Plt Count Lymph % (Auto) Brown % (Auto) Lymph # Brown # Baso # Seg Neutrophils % Seg Neuts % (Manual) Lymphocytes % (Manual) Monocytes % (Manual) Eosinophils % (Manual) Basophils % (Manual) Nucleated RBC % Seg Neutrophils # Seg Neutrophils # Man Lymphocytes # (Manual) Monocytes # (Manual) Eosinophils # (Manual) Basophils # (Manual) PT INR Fibrinogen dRVVT Confirm Interp Factor V Activity POC ABG pH 7.499 H POC ABG pCO2 30.9 L POC ABG pO2 51 L ABG pO2 ABG HCO3 ABG Base Excess ABG Hemoglobin Oxyhemoglobin Sodium Potassium Chloride Carbon Dioxide BUN Creatinine Glucose POC Glucose 118 H 133 H Lactic Acid Calcium Phosphorus Magnesium Direct Bilirubin AST ALT Alkaline Phosphatase Lactate Dehydrogenase Troponin T C-Reactive Protein Total Protein Albumin Prealbumin Triglycerides Cholesterol LDL Cholesterol Direct HDL Cholesterol PTH Intact Urine pH Urine WBC (Auto) Urine Creatinine Urine Total Protein Fluid Total Protein Vancomycin Trough Rheumatoid Factor Complement C4 Miscellaneous Test Crossmatch 01/16/17 01/16/17 01/16/17 17:52 23:57 Unknown WBC RBC Hgb Hct MCV MCH MCHC RDW Plt Count Lymph % (Auto) Brown % (Auto) Lymph # Brown # Baso # Seg Neutrophils % Seg Neuts % (Manual) Lymphocytes % (Manual) Monocytes % (Manual) Eosinophils % (Manual) Basophils % (Manual) Nucleated RBC % Seg Neutrophils # Seg Neutrophils # Man Lymphocytes # (Manual) Monocytes # (Manual) Eosinophils # (Manual) Basophils # (Manual) PT INR Fibrinogen dRVVT Confirm Interp Factor V Activity POC ABG pH POC ABG pCO2 POC ABG pO2 ABG pO2 ABG HCO3 ABG Base Excess ABG Hemoglobin Oxyhemoglobin Sodium 135 L Potassium Chloride Carbon Dioxide BUN 101 H Creatinine 1.8 H Glucose 117 H POC Glucose 130 H 143 H Lactic Acid Calcium Phosphorus 5.80 H Magnesium Direct Bilirubin AST ALT Alkaline Phosphatase Lactate Dehydrogenase Troponin T C-Reactive Protein Total Protein Albumin Prealbumin Triglycerides Cholesterol LDL Cholesterol Direct HDL Cholesterol PTH Intact Urine pH Urine WBC (Auto) Urine Creatinine Urine Total Protein Fluid Total Protein Vancomycin Trough Rheumatoid Factor Complement C4 Miscellaneous Test Crossmatch 01/17/17 01/17/17 01/17/17 05:30 05:46 11:49 WBC RBC Hgb Hct MCV MCH MCHC RDW Plt Count Lymph % (Auto) Brown % (Auto) Lymph # Brown # Baso # Seg Neutrophils % Seg Neuts % (Manual) Lymphocytes % (Manual) Monocytes % (Manual) Eosinophils % (Manual) Basophils % (Manual) Nucleated RBC % Seg Neutrophils # Seg Neutrophils # Man Lymphocytes # (Manual) Monocytes # (Manual) Eosinophils # (Manual) Basophils # (Manual) PT INR Fibrinogen dRVVT Confirm Interp Factor V Activity POC ABG pH POC ABG pCO2 POC ABG pO2 ABG pO2 ABG HCO3 ABG Base Excess ABG Hemoglobin Oxyhemoglobin Sodium 134 L Potassium Chloride 95.8 L Carbon Dioxide BUN 66 H Creatinine 1.3 H Glucose 138 H POC Glucose 147 H 124 H Lactic Acid Calcium Phosphorus Magnesium Direct Bilirubin AST ALT Alkaline Phosphatase 254 H Lactate Dehydrogenase Troponin T C-Reactive Protein Total Protein Albumin 1.3 L Prealbumin Triglycerides Cholesterol LDL Cholesterol Direct HDL Cholesterol PTH Intact Urine pH Urine WBC (Auto) Urine Creatinine Urine Total Protein Fluid Total Protein Vancomycin Trough Rheumatoid Factor Complement C4 Miscellaneous Test Crossmatch 01/17/17 01/17/17 01/18/17 17:30 23:41 05:15 WBC RBC Hgb Hct MCV MCH MCHC RDW Plt Count Lymph % (Auto) Brown % (Auto) Lymph # Brown # Baso # Seg Neutrophils % Seg Neuts % (Manual) Lymphocytes % (Manual) Monocytes % (Manual) Eosinophils % (Manual) Basophils % (Manual) Nucleated RBC % Seg Neutrophils # Seg Neutrophils # Man Lymphocytes # (Manual) Monocytes # (Manual) Eosinophils # (Manual) Basophils # (Manual) PT INR Fibrinogen dRVVT Confirm Interp Factor V Activity POC ABG pH POC ABG pCO2 POC ABG pO2 ABG pO2 ABG HCO3 ABG Base Excess ABG Hemoglobin Oxyhemoglobin Sodium Potassium Chloride Carbon Dioxide BUN 89 H Creatinine 1.7 H Glucose 118 H POC Glucose 137 H 119 H Lactic Acid Calcium Phosphorus Magnesium Direct Bilirubin AST ALT Alkaline Phosphatase Lactate Dehydrogenase Troponin T C-Reactive Protein Total Protein Albumin Prealbumin Triglycerides Cholesterol LDL Cholesterol Direct HDL Cholesterol PTH Intact Urine pH Urine WBC (Auto) Urine Creatinine Urine Total Protein Fluid Total Protein Vancomycin Trough Rheumatoid Factor Complement C4 Miscellaneous Test Crossmatch 01/18/17 01/18/17 01/18/17 05:19 12:16 18:11 WBC RBC Hgb Hct MCV MCH MCHC RDW Plt Count Lymph % (Auto) Brown % (Auto) Lymph # Brown # Baso # Seg Neutrophils % Seg Neuts % (Manual) Lymphocytes % (Manual) Monocytes % (Manual) Eosinophils % (Manual) Basophils % (Manual) Nucleated RBC % Seg Neutrophils # Seg Neutrophils # Man Lymphocytes # (Manual) Monocytes # (Manual) Eosinophils # (Manual) Basophils # (Manual) PT INR Fibrinogen dRVVT Confirm Interp Factor V Activity POC ABG pH POC ABG pCO2 POC ABG pO2 ABG pO2 ABG HCO3 ABG Base Excess ABG Hemoglobin Oxyhemoglobin Sodium Potassium Chloride Carbon Dioxide BUN Creatinine Glucose POC Glucose 134 H 188 H 113 H Lactic Acid Calcium Phosphorus Magnesium Direct Bilirubin AST ALT Alkaline Phosphatase Lactate Dehydrogenase Troponin T C-Reactive Protein Total Protein Albumin Prealbumin Triglycerides Cholesterol LDL Cholesterol Direct HDL Cholesterol PTH Intact Urine pH Urine WBC (Auto) Urine Creatinine Urine Total Protein Fluid Total Protein Vancomycin Trough Rheumatoid Factor Complement C4 Miscellaneous Test Crossmatch 01/19/17 01/19/17 01/19/17 00:00 05:30 05:36 WBC RBC Hgb Hct MCV MCH MCHC RDW Plt Count Lymph % (Auto) Brown % (Auto) Lymph # Brown # Baso # Seg Neutrophils % Seg Neuts % (Manual) Lymphocytes % (Manual) Monocytes % (Manual) Eosinophils % (Manual) Basophils % (Manual) Nucleated RBC % Seg Neutrophils # Seg Neutrophils # Man Lymphocytes # (Manual) Monocytes # (Manual) Eosinophils # (Manual) Basophils # (Manual) PT INR Fibrinogen dRVVT Confirm Interp Factor V Activity POC ABG pH POC ABG pCO2 POC ABG pO2 ABG pO2 ABG HCO3 ABG Base Excess ABG Hemoglobin Oxyhemoglobin Sodium Potassium Chloride Carbon Dioxide BUN 70 H Creatinine 1.5 H Glucose 121 H POC Glucose 137 H 155 H Lactic Acid Calcium Phosphorus 2.10 L D Magnesium Direct Bilirubin AST ALT Alkaline Phosphatase Lactate Dehydrogenase Troponin T C-Reactive Protein Total Protein Albumin Prealbumin Triglycerides Cholesterol LDL Cholesterol Direct HDL Cholesterol PTH Intact Urine pH Urine WBC (Auto) Urine Creatinine Urine Total Protein Fluid Total Protein Vancomycin Trough Rheumatoid Factor Complement C4 Miscellaneous Test Crossmatch 01/19/17 01/19/17 01/19/17 11:59 15:32 17:57 WBC RBC Hgb Hct MCV MCH MCHC RDW Plt Count Lymph % (Auto) Brown % (Auto) Lymph # Brown # Baso # Seg Neutrophils % Seg Neuts % (Manual) Lymphocytes % (Manual) Monocytes % (Manual) Eosinophils % (Manual) Basophils % (Manual) Nucleated RBC % Seg Neutrophils # Seg Neutrophils # Man Lymphocytes # (Manual) Monocytes # (Manual) Eosinophils # (Manual) Basophils # (Manual) PT INR Fibrinogen dRVVT Confirm Interp Factor V Activity POC ABG pH POC ABG pCO2 33.1 L POC ABG pO2 76 L ABG pO2 ABG HCO3 ABG Base Excess ABG Hemoglobin Oxyhemoglobin Sodium Potassium Chloride Carbon Dioxide BUN Creatinine Glucose POC Glucose 156 H 129 H Lactic Acid Calcium Phosphorus Magnesium Direct Bilirubin AST ALT Alkaline Phosphatase Lactate Dehydrogenase Troponin T C-Reactive Protein Total Protein Albumin Prealbumin Triglycerides Cholesterol LDL Cholesterol Direct HDL Cholesterol PTH Intact Urine pH Urine WBC (Auto) Urine Creatinine Urine Total Protein Fluid Total Protein Vancomycin Trough Rheumatoid Factor Complement C4 Miscellaneous Test Crossmatch 01/19/17 01/20/17 01/20/17 23:49 04:00 05:21 WBC RBC Hgb Hct MCV MCH MCHC RDW Plt Count Lymph % (Auto) Brown % (Auto) Lymph # Brown # Baso # Seg Neutrophils % Seg Neuts % (Manual) Lymphocytes % (Manual) Monocytes % (Manual) Eosinophils % (Manual) Basophils % (Manual) Nucleated RBC % Seg Neutrophils # Seg Neutrophils # Man Lymphocytes # (Manual) Monocytes # (Manual) Eosinophils # (Manual) Basophils # (Manual) PT INR Fibrinogen dRVVT Confirm Interp Factor V Activity POC ABG pH POC ABG pCO2 POC ABG pO2 ABG pO2 ABG HCO3 ABG Base Excess ABG Hemoglobin Oxyhemoglobin Sodium Potassium Chloride Carbon Dioxide BUN 96 H Creatinine 1.9 H Glucose 106 H POC Glucose 125 H 130 H Lactic Acid Calcium Phosphorus 2.40 L Magnesium Direct Bilirubin AST ALT Alkaline Phosphatase Lactate Dehydrogenase Troponin T C-Reactive Protein Total Protein Albumin Prealbumin Triglycerides Cholesterol LDL Cholesterol Direct HDL Cholesterol PTH Intact Urine pH Urine WBC (Auto) Urine Creatinine Urine Total Protein Fluid Total Protein Vancomycin Trough Rheumatoid Factor Complement C4 Miscellaneous Test Crossmatch 01/20/17 01/20/17 01/20/17 11:58 12:17 17:26 WBC RBC Hgb Hct MCV MCH MCHC RDW Plt Count Lymph % (Auto) Brown % (Auto) Lymph # Brown # Baso # Seg Neutrophils % Seg Neuts % (Manual) Lymphocytes % (Manual) Monocytes % (Manual) Eosinophils % (Manual) Basophils % (Manual) Nucleated RBC % Seg Neutrophils # Seg Neutrophils # Man Lymphocytes # (Manual) Monocytes # (Manual) Eosinophils # (Manual) Basophils # (Manual) PT INR Fibrinogen dRVVT Confirm Interp Factor V Activity POC ABG pH POC ABG pCO2 POC ABG pO2 70 L ABG pO2 ABG HCO3 ABG Base Excess ABG Hemoglobin Oxyhemoglobin Sodium Potassium Chloride Carbon Dioxide BUN Creatinine Glucose POC Glucose 118 H 154 H Lactic Acid Calcium Phosphorus Magnesium Direct Bilirubin AST ALT Alkaline Phosphatase Lactate Dehydrogenase Troponin T C-Reactive Protein Total Protein Albumin Prealbumin Triglycerides Cholesterol LDL Cholesterol Direct HDL Cholesterol PTH Intact Urine pH Urine WBC (Auto) Urine Creatinine Urine Total Protein Fluid Total Protein Vancomycin Trough Rheumatoid Factor Complement C4 Miscellaneous Test Crossmatch 01/21/17 01/21/17 01/21/17 04:00 04:56 11:46 WBC RBC Hgb Hct MCV MCH MCHC RDW Plt Count Lymph % (Auto) Brown % (Auto) Lymph # Brown # Baso # Seg Neutrophils % Seg Neuts % (Manual) Lymphocytes % (Manual) Monocytes % (Manual) Eosinophils % (Manual) Basophils % (Manual) Nucleated RBC % Seg Neutrophils # Seg Neutrophils # Man Lymphocytes # (Manual) Monocytes # (Manual) Eosinophils # (Manual) Basophils # (Manual) PT INR Fibrinogen dRVVT Confirm Interp Factor V Activity POC ABG pH POC ABG pCO2 POC ABG pO2 ABG pO2 ABG HCO3 ABG Base Excess ABG Hemoglobin Oxyhemoglobin Sodium Potassium 3.5 L Chloride 97.4 L Carbon Dioxide BUN 66 H Creatinine 1.4 H Glucose POC Glucose 116 H 106 H Lactic Acid Calcium Phosphorus 2.10 L Magnesium Direct Bilirubin AST ALT Alkaline Phosphatase Lactate Dehydrogenase Troponin T C-Reactive Protein Total Protein Albumin Prealbumin Triglycerides Cholesterol LDL Cholesterol Direct HDL Cholesterol PTH Intact Urine pH Urine WBC (Auto) Urine Creatinine Urine Total Protein Fluid Total Protein Vancomycin Trough Rheumatoid Factor Complement C4 Miscellaneous Test Crossmatch 01/21/17 01/21/17 01/22/17 17:25 23:49 05:35 WBC RBC Hgb Hct MCV MCH MCHC RDW Plt Count Lymph % (Auto) Brown % (Auto) Lymph # Brown # Baso # Seg Neutrophils % Seg Neuts % (Manual) Lymphocytes % (Manual) Monocytes % (Manual) Eosinophils % (Manual) Basophils % (Manual) Nucleated RBC % Seg Neutrophils # Seg Neutrophils # Man Lymphocytes # (Manual) Monocytes # (Manual) Eosinophils # (Manual) Basophils # (Manual) PT INR Fibrinogen dRVVT Confirm Interp Factor V Activity POC ABG pH POC ABG pCO2 POC ABG pO2 ABG pO2 ABG HCO3 ABG Base Excess ABG Hemoglobin Oxyhemoglobin Sodium Potassium Chloride Carbon Dioxide BUN Creatinine Glucose POC Glucose 106 H 133 H 107 H Lactic Acid Calcium Phosphorus Magnesium Direct Bilirubin AST ALT Alkaline Phosphatase Lactate Dehydrogenase Troponin T C-Reactive Protein Total Protein Albumin Prealbumin Triglycerides Cholesterol LDL Cholesterol Direct HDL Cholesterol PTH Intact Urine pH Urine WBC (Auto) Urine Creatinine Urine Total Protein Fluid Total Protein Vancomycin Trough Rheumatoid Factor Complement C4 Miscellaneous Test Crossmatch 01/22/17 01/22/17 01/22/17 07:20 07:20 11:31 WBC RBC 2.75 L Hgb 7.5 L Hct 22.7 L MCV MCH 27 L MCHC RDW 17.5 H Plt Count Lymph % (Auto) Brown % (Auto) Lymph # Brown # Baso # Seg Neutrophils % Seg Neuts % (Manual) Lymphocytes % (Manual) Monocytes % (Manual) Eosinophils % (Manual) Basophils % (Manual) Nucleated RBC % Seg Neutrophils # Seg Neutrophils # Man Lymphocytes # (Manual) Monocytes # (Manual) Eosinophils # (Manual) Basophils # (Manual) PT INR Fibrinogen dRVVT Confirm Interp Factor V Activity POC ABG pH POC ABG pCO2 POC ABG pO2 ABG pO2 ABG HCO3 ABG Base Excess ABG Hemoglobin Oxyhemoglobin Sodium Potassium 3.3 L Chloride Carbon Dioxide BUN 42 H Creatinine Glucose 105 H POC Glucose 124 H Lactic Acid Calcium Phosphorus 1.70 L Magnesium Direct Bilirubin AST ALT Alkaline Phosphatase Lactate Dehydrogenase Troponin T C-Reactive Protein Total Protein Albumin Prealbumin Triglycerides Cholesterol LDL Cholesterol Direct HDL Cholesterol PTH Intact Urine pH Urine WBC (Auto) Urine Creatinine Urine Total Protein Fluid Total Protein Vancomycin Trough Rheumatoid Factor Complement C4 Miscellaneous Test Crossmatch 01/22/17 01/22/17 01/23/17 17:16 23:35 05:35 WBC RBC Hgb Hct MCV MCH MCHC RDW Plt Count Lymph % (Auto) Brown % (Auto) Lymph # Brown # Baso # Seg Neutrophils % Seg Neuts % (Manual) Lymphocytes % (Manual) Monocytes % (Manual) Eosinophils % (Manual) Basophils % (Manual) Nucleated RBC % Seg Neutrophils # Seg Neutrophils # Man Lymphocytes # (Manual) Monocytes # (Manual) Eosinophils # (Manual) Basophils # (Manual) PT INR Fibrinogen dRVVT Confirm Interp Factor V Activity POC ABG pH POC ABG pCO2 POC ABG pO2 ABG pO2 ABG HCO3 ABG Base Excess ABG Hemoglobin Oxyhemoglobin Sodium Potassium Chloride Carbon Dioxide BUN Creatinine Glucose POC Glucose 135 H 120 H 111 H Lactic Acid Calcium Phosphorus Magnesium Direct Bilirubin AST ALT Alkaline Phosphatase Lactate Dehydrogenase Troponin T C-Reactive Protein Total Protein Albumin Prealbumin Triglycerides Cholesterol LDL Cholesterol Direct HDL Cholesterol PTH Intact Urine pH Urine WBC (Auto) Urine Creatinine Urine Total Protein Fluid Total Protein Vancomycin Trough Rheumatoid Factor Complement C4 Miscellaneous Test Crossmatch 01/23/17 01/23/17 01/23/17 06:10 17:27 23:44 WBC RBC Hgb Hct MCV MCH MCHC RDW Plt Count Lymph % (Auto) Brown % (Auto) Lymph # Brown # Baso # Seg Neutrophils % Seg Neuts % (Manual) Lymphocytes % (Manual) Monocytes % (Manual) Eosinophils % (Manual) Basophils % (Manual) Nucleated RBC % Seg Neutrophils # Seg Neutrophils # Man Lymphocytes # (Manual) Monocytes # (Manual) Eosinophils # (Manual) Basophils # (Manual) PT INR Fibrinogen dRVVT Confirm Interp Factor V Activity POC ABG pH POC ABG pCO2 POC ABG pO2 ABG pO2 ABG HCO3 ABG Base Excess ABG Hemoglobin Oxyhemoglobin Sodium Potassium 3.3 L Chloride Carbon Dioxide BUN 66 H Creatinine 1.3 H Glucose 109 H POC Glucose 120 H 115 H Lactic Acid Calcium Phosphorus 2.20 L D Magnesium Direct Bilirubin AST ALT Alkaline Phosphatase Lactate Dehydrogenase Troponin T C-Reactive Protein Total Protein Albumin Prealbumin Triglycerides Cholesterol LDL Cholesterol Direct HDL Cholesterol PTH Intact Urine pH Urine WBC (Auto) Urine Creatinine Urine Total Protein Fluid Total Protein Vancomycin Trough Rheumatoid Factor Complement C4 Miscellaneous Test Crossmatch 01/24/17 01/24/17 01/24/17 05:19 05:50 12:19 WBC RBC Hgb Hct MCV MCH MCHC RDW Plt Count Lymph % (Auto) Brown % (Auto) Lymph # Brown # Baso # Seg Neutrophils % Seg Neuts % (Manual) Lymphocytes % (Manual) Monocytes % (Manual) Eosinophils % (Manual) Basophils % (Manual) Nucleated RBC % Seg Neutrophils # Seg Neutrophils # Man Lymphocytes # (Manual) Monocytes # (Manual) Eosinophils # (Manual) Basophils # (Manual) PT INR Fibrinogen dRVVT Confirm Interp Factor V Activity POC ABG pH POC ABG pCO2 POC ABG pO2 ABG pO2 ABG HCO3 ABG Base Excess ABG Hemoglobin Oxyhemoglobin Sodium Potassium Chloride Carbon Dioxide BUN 47 H Creatinine Glucose 117 H POC Glucose 126 H 119 H Lactic Acid Calcium Phosphorus 2.30 L Magnesium 1.60 L Direct Bilirubin AST ALT Alkaline Phosphatase Lactate Dehydrogenase Troponin T C-Reactive Protein Total Protein Albumin Prealbumin Triglycerides Cholesterol LDL Cholesterol Direct HDL Cholesterol PTH Intact Urine pH Urine WBC (Auto) Urine Creatinine Urine Total Protein Fluid Total Protein Vancomycin Trough Rheumatoid Factor Complement C4 Miscellaneous Test Crossmatch 01/24/17 01/25/17 01/25/17 17:08 00:37 04:00 WBC RBC Hgb Hct MCV MCH MCHC RDW Plt Count Lymph % (Auto) Brown % (Auto) Lymph # Brown # Baso # Seg Neutrophils % Seg Neuts % (Manual) Lymphocytes % (Manual) Monocytes % (Manual) Eosinophils % (Manual) Basophils % (Manual) Nucleated RBC % Seg Neutrophils # Seg Neutrophils # Man Lymphocytes # (Manual) Monocytes # (Manual) Eosinophils # (Manual) Basophils # (Manual) PT INR Fibrinogen dRVVT Confirm Interp Factor V Activity POC ABG pH POC ABG pCO2 POC ABG pO2 ABG pO2 ABG HCO3 ABG Base Excess ABG Hemoglobin Oxyhemoglobin Sodium Potassium Chloride Carbon Dioxide BUN 72 H Creatinine 1.3 H Glucose POC Glucose 127 H 110 H Lactic Acid Calcium Phosphorus Magnesium Direct Bilirubin AST ALT Alkaline Phosphatase Lactate Dehydrogenase Troponin T C-Reactive Protein Total Protein Albumin Prealbumin Triglycerides Cholesterol LDL Cholesterol Direct HDL Cholesterol PTH Intact Urine pH Urine WBC (Auto) Urine Creatinine Urine Total Protein Fluid Total Protein Vancomycin Trough Rheumatoid Factor Complement C4 Miscellaneous Test Crossmatch 01/25/17 01/25/17 01/25/17 04:00 11:15 13:05 WBC RBC 2.49 L Hgb 6.7 L Hct 20.9 L MCV MCH 27 L MCHC RDW 18.8 H Plt Count Lymph % (Auto) Brown % (Auto) 10.1 H Lymph # Brown # 1.0 H Baso # Seg Neutrophils % Seg Neuts % (Manual) Lymphocytes % (Manual) Monocytes % (Manual) Eosinophils % (Manual) Basophils % (Manual) Nucleated RBC % Seg Neutrophils # Seg Neutrophils # Man Lymphocytes # (Manual) Monocytes # (Manual) Eosinophils # (Manual) Basophils # (Manual) PT INR Fibrinogen dRVVT Confirm Interp Factor V Activity POC ABG pH POC ABG pCO2 POC ABG pO2 ABG pO2 ABG HCO3 ABG Base Excess ABG Hemoglobin Oxyhemoglobin Sodium Potassium Chloride Carbon Dioxide BUN Creatinine Glucose POC Glucose 128 H Lactic Acid Calcium Phosphorus Magnesium Direct Bilirubin AST ALT Alkaline Phosphatase Lactate Dehydrogenase Troponin T C-Reactive Protein Total Protein Albumin Prealbumin Triglycerides Cholesterol LDL Cholesterol Direct HDL Cholesterol PTH Intact Urine pH Urine WBC (Auto) Urine Creatinine Urine Total Protein Fluid Total Protein Vancomycin Trough Rheumatoid Factor Complement C4 Miscellaneous Test Crossmatch See Detail 01/25/17 01/25/17 01/26/17 18:02 23:07 01:20 WBC RBC Hgb Hct MCV MCH MCHC RDW Plt Count Lymph % (Auto) Brown % (Auto) Lymph # Brown # Baso # Seg Neutrophils % Seg Neuts % (Manual) Lymphocytes % (Manual) Monocytes % (Manual) Eosinophils % (Manual) Basophils % (Manual) Nucleated RBC % Seg Neutrophils # Seg Neutrophils # Man Lymphocytes # (Manual) Monocytes # (Manual) Eosinophils # (Manual) Basophils # (Manual) PT INR Fibrinogen dRVVT Confirm Interp Factor V Activity POC ABG pH POC ABG pCO2 POC ABG pO2 ABG pO2 ABG HCO3 ABG Base Excess ABG Hemoglobin Oxyhemoglobin Sodium Potassium Chloride Carbon Dioxide BUN Creatinine Glucose POC Glucose 120 H 123 H 112 H Lactic Acid Calcium Phosphorus Magnesium Direct Bilirubin AST ALT Alkaline Phosphatase Lactate Dehydrogenase Troponin T C-Reactive Protein Total Protein Albumin Prealbumin Triglycerides Cholesterol LDL Cholesterol Direct HDL Cholesterol PTH Intact Urine pH Urine WBC (Auto) Urine Creatinine Urine Total Protein Fluid Total Protein Vancomycin Trough Rheumatoid Factor Complement C4 Miscellaneous Test Crossmatch 01/26/17 01/26/17 01/26/17 04:20 04:20 11:23 WBC 13.1 H RBC 3.28 L Hgb 9.0 L Hct 26.9 L D MCV MCH 27 L MCHC RDW 17.2 H Plt Count Lymph % (Auto) Brown % (Auto) 9.0 H Lymph # Brown # 1.2 H Baso # Seg Neutrophils % 73.1 H Seg Neuts % (Manual) Lymphocytes % (Manual) Monocytes % (Manual) Eosinophils % (Manual) Basophils % (Manual) Nucleated RBC % Seg Neutrophils # 9.6 H Seg Neutrophils # Man Lymphocytes # (Manual) Monocytes # (Manual) Eosinophils # (Manual) Basophils # (Manual) PT INR Fibrinogen dRVVT Confirm Interp Factor V Activity POC ABG pH POC ABG pCO2 POC ABG pO2 ABG pO2 ABG HCO3 ABG Base Excess ABG Hemoglobin Oxyhemoglobin Sodium Potassium Chloride Carbon Dioxide BUN 51 H Creatinine Glucose 117 H POC Glucose 125 H Lactic Acid Calcium Phosphorus Magnesium Direct Bilirubin AST ALT Alkaline Phosphatase Lactate Dehydrogenase Troponin T C-Reactive Protein Total Protein Albumin Prealbumin Triglycerides Cholesterol LDL Cholesterol Direct HDL Cholesterol PTH Intact Urine pH Urine WBC (Auto) Urine Creatinine Urine Total Protein Fluid Total Protein Vancomycin Trough Rheumatoid Factor Complement C4 Miscellaneous Test Crossmatch 01/26/17 01/27/17 01/27/17 17:11 00:30 04:00 WBC RBC Hgb Hct MCV MCH MCHC RDW Plt Count Lymph % (Auto) Brown % (Auto) Lymph # Brown # Baso # Seg Neutrophils % Seg Neuts % (Manual) Lymphocytes % (Manual) Monocytes % (Manual) Eosinophils % (Manual) Basophils % (Manual) Nucleated RBC % Seg Neutrophils # Seg Neutrophils # Man Lymphocytes # (Manual) Monocytes # (Manual) Eosinophils # (Manual) Basophils # (Manual) PT INR Fibrinogen dRVVT Confirm Interp Factor V Activity POC ABG pH POC ABG pCO2 POC ABG pO2 ABG pO2 ABG HCO3 ABG Base Excess ABG Hemoglobin Oxyhemoglobin Sodium Potassium Chloride 97.7 L Carbon Dioxide 21 L BUN 79 H Creatinine 1.7 H D Glucose 112 H POC Glucose 133 H 135 H Lactic Acid Calcium Phosphorus 5.00 H D Magnesium Direct Bilirubin AST ALT Alkaline Phosphatase Lactate Dehydrogenase Troponin T C-Reactive Protein Total Protein Albumin Prealbumin Triglycerides Cholesterol LDL Cholesterol Direct HDL Cholesterol PTH Intact Urine pH Urine WBC (Auto) Urine Creatinine Urine Total Protein Fluid Total Protein Vancomycin Trough Rheumatoid Factor Complement C4 Miscellaneous Test Crossmatch 01/27/17 01/27/17 01/27/17 05:12 12:18 17:25 WBC RBC Hgb Hct MCV MCH MCHC RDW Plt Count Lymph % (Auto) Brown % (Auto) Lymph # Brown # Baso # Seg Neutrophils % Seg Neuts % (Manual) Lymphocytes % (Manual) Monocytes % (Manual) Eosinophils % (Manual) Basophils % (Manual) Nucleated RBC % Seg Neutrophils # Seg Neutrophils # Man Lymphocytes # (Manual) Monocytes # (Manual) Eosinophils # (Manual) Basophils # (Manual) PT INR Fibrinogen dRVVT Confirm Interp Factor V Activity POC ABG pH POC ABG pCO2 POC ABG pO2 ABG pO2 ABG HCO3 ABG Base Excess ABG Hemoglobin Oxyhemoglobin Sodium Potassium Chloride Carbon Dioxide BUN Creatinine Glucose POC Glucose 116 H 153 H 152 H Lactic Acid Calcium Phosphorus Magnesium Direct Bilirubin AST ALT Alkaline Phosphatase Lactate Dehydrogenase Troponin T C-Reactive Protein Total Protein Albumin Prealbumin Triglycerides Cholesterol LDL Cholesterol Direct HDL Cholesterol PTH Intact Urine pH Urine WBC (Auto) Urine Creatinine Urine Total Protein Fluid Total Protein Vancomycin Trough Rheumatoid Factor Complement C4 Miscellaneous Test Crossmatch 01/27/17 01/28/17 01/28/17 23:42 04:00 04:00 WBC 14.4 H RBC 2.82 L Hgb 7.4 L Hct 23.5 L MCV MCH 26 L MCHC RDW 17.6 H Plt Count Lymph % (Auto) 10.2 L Brown % (Auto) 11.0 H Lymph # Brown # 1.6 H Baso # Seg Neutrophils % 78.0 H Seg Neuts % (Manual) Lymphocytes % (Manual) Monocytes % (Manual) Eosinophils % (Manual) Basophils % (Manual) Nucleated RBC % Seg Neutrophils # 11.3 H Seg Neutrophils # Man Lymphocytes # (Manual) Monocytes # (Manual) Eosinophils # (Manual) Basophils # (Manual) PT INR Fibrinogen dRVVT Confirm Interp Factor V Activity POC ABG pH POC ABG pCO2 POC ABG pO2 ABG pO2 ABG HCO3 ABG Base Excess ABG Hemoglobin Oxyhemoglobin Sodium Potassium Chloride Carbon Dioxide BUN 55 H Creatinine 1.3 H Glucose 114 H POC Glucose 121 H Lactic Acid Calcium Phosphorus Magnesium Direct Bilirubin AST ALT Alkaline Phosphatase Lactate Dehydrogenase Troponin T C-Reactive Protein Total Protein Albumin 1.4 L Prealbumin Triglycerides Cholesterol LDL Cholesterol Direct HDL Cholesterol PTH Intact Urine pH Urine WBC (Auto) Urine Creatinine Urine Total Protein Fluid Total Protein Vancomycin Trough Rheumatoid Factor Complement C4 Miscellaneous Test Crossmatch 01/28/17 01/28/17 01/29/17 04:59 12:30 00:02 WBC RBC Hgb Hct MCV MCH MCHC RDW Plt Count Lymph % (Auto) Brown % (Auto) Lymph # Brown # Baso # Seg Neutrophils % Seg Neuts % (Manual) Lymphocytes % (Manual) Monocytes % (Manual) Eosinophils % (Manual) Basophils % (Manual) Nucleated RBC % Seg Neutrophils # Seg Neutrophils # Man Lymphocytes # (Manual) Monocytes # (Manual) Eosinophils # (Manual) Basophils # (Manual) PT INR Fibrinogen dRVVT Confirm Interp Factor V Activity POC ABG pH POC ABG pCO2 POC ABG pO2 ABG pO2 ABG HCO3 ABG Base Excess ABG Hemoglobin Oxyhemoglobin Sodium Potassium Chloride Carbon Dioxide BUN Creatinine Glucose POC Glucose 126 H 119 H 138 H Lactic Acid Calcium Phosphorus Magnesium Direct Bilirubin AST ALT Alkaline Phosphatase Lactate Dehydrogenase Troponin T C-Reactive Protein Total Protein Albumin Prealbumin Triglycerides Cholesterol LDL Cholesterol Direct HDL Cholesterol PTH Intact Urine pH Urine WBC (Auto) Urine Creatinine Urine Total Protein Fluid Total Protein Vancomycin Trough Rheumatoid Factor Complement C4 Miscellaneous Test Crossmatch 01/29/17 01/29/17 01/29/17 04:58 06:15 11:35 WBC RBC Hgb Hct MCV MCH MCHC RDW Plt Count Lymph % (Auto) Brown % (Auto) Lymph # Brown # Baso # Seg Neutrophils % Seg Neuts % (Manual) Lymphocytes % (Manual) Monocytes % (Manual) Eosinophils % (Manual) Basophils % (Manual) Nucleated RBC % Seg Neutrophils # Seg Neutrophils # Man Lymphocytes # (Manual) Monocytes # (Manual) Eosinophils # (Manual) Basophils # (Manual) PT INR Fibrinogen dRVVT Confirm Interp Factor V Activity POC ABG pH POC ABG pCO2 POC ABG pO2 ABG pO2 ABG HCO3 ABG Base Excess ABG Hemoglobin Oxyhemoglobin Sodium Potassium Chloride Carbon Dioxide BUN 85 H Creatinine 1.7 H Glucose 105 H POC Glucose 114 H 110 H Lactic Acid Calcium Phosphorus Magnesium 2.40 H Direct Bilirubin AST ALT Alkaline Phosphatase Lactate Dehydrogenase Troponin T C-Reactive Protein Total Protein Albumin Prealbumin Triglycerides Cholesterol LDL Cholesterol Direct HDL Cholesterol PTH Intact Urine pH Urine WBC (Auto) Urine Creatinine Urine Total Protein Fluid Total Protein Vancomycin Trough Rheumatoid Factor Complement C4 Miscellaneous Test Crossmatch 01/29/17 01/29/17 01/30/17 18:24 23:41 05:12 WBC RBC Hgb Hct MCV MCH MCHC RDW Plt Count Lymph % (Auto) Brown % (Auto) Lymph # Brown # Baso # Seg Neutrophils % Seg Neuts % (Manual) Lymphocytes % (Manual) Monocytes % (Manual) Eosinophils % (Manual) Basophils % (Manual) Nucleated RBC % Seg Neutrophils # Seg Neutrophils # Man Lymphocytes # (Manual) Monocytes # (Manual) Eosinophils # (Manual) Basophils # (Manual) PT INR Fibrinogen dRVVT Confirm Interp Factor V Activity POC ABG pH POC ABG pCO2 POC ABG pO2 ABG pO2 ABG HCO3 ABG Base Excess ABG Hemoglobin Oxyhemoglobin Sodium Potassium Chloride Carbon Dioxide BUN Creatinine Glucose POC Glucose 109 H 134 H 109 H Lactic Acid Calcium Phosphorus Magnesium Direct Bilirubin AST ALT Alkaline Phosphatase Lactate Dehydrogenase Troponin T C-Reactive Protein Total Protein Albumin Prealbumin Triglycerides Cholesterol LDL Cholesterol Direct HDL Cholesterol PTH Intact Urine pH Urine WBC (Auto) Urine Creatinine Urine Total Protein Fluid Total Protein Vancomycin Trough Rheumatoid Factor Complement C4 Miscellaneous Test Crossmatch 01/30/17 01/30/17 01/30/17 11:26 17:43 23:39 WBC RBC Hgb Hct MCV MCH MCHC RDW Plt Count Lymph % (Auto) Brown % (Auto) Lymph # Brown # Baso # Seg Neutrophils % Seg Neuts % (Manual) Lymphocytes % (Manual) Monocytes % (Manual) Eosinophils % (Manual) Basophils % (Manual) Nucleated RBC % Seg Neutrophils # Seg Neutrophils # Man Lymphocytes # (Manual) Monocytes # (Manual) Eosinophils # (Manual) Basophils # (Manual) PT INR Fibrinogen dRVVT Confirm Interp Factor V Activity POC ABG pH POC ABG pCO2 POC ABG pO2 ABG pO2 ABG HCO3 ABG Base Excess ABG Hemoglobin Oxyhemoglobin Sodium Potassium Chloride Carbon Dioxide BUN Creatinine Glucose POC Glucose 135 H 143 H 122 H Lactic Acid Calcium Phosphorus Magnesium Direct Bilirubin AST ALT Alkaline Phosphatase Lactate Dehydrogenase Troponin T C-Reactive Protein Total Protein Albumin Prealbumin Triglycerides Cholesterol LDL Cholesterol Direct HDL Cholesterol PTH Intact Urine pH Urine WBC (Auto) Urine Creatinine Urine Total Protein Fluid Total Protein Vancomycin Trough Rheumatoid Factor Complement C4 Miscellaneous Test Crossmatch 01/31/17 01/31/17 01/31/17 04:00 05:40 11:12 WBC RBC Hgb Hct MCV MCH MCHC RDW Plt Count Lymph % (Auto) Brown % (Auto) Lymph # Brown # Baso # Seg Neutrophils % Seg Neuts % (Manual) Lymphocytes % (Manual) Monocytes % (Manual) Eosinophils % (Manual) Basophils % (Manual) Nucleated RBC % Seg Neutrophils # Seg Neutrophils # Man Lymphocytes # (Manual) Monocytes # (Manual) Eosinophils # (Manual) Basophils # (Manual) PT INR Fibrinogen dRVVT Confirm Interp Factor V Activity POC ABG pH POC ABG pCO2 POC ABG pO2 ABG pO2 ABG HCO3 ABG Base Excess ABG Hemoglobin Oxyhemoglobin Sodium Potassium Chloride Carbon Dioxide BUN 78 H Creatinine 1.5 H Glucose 108 H POC Glucose 123 H Lactic Acid Calcium Phosphorus Magnesium Direct Bilirubin AST ALT Alkaline Phosphatase Lactate Dehydrogenase Troponin T C-Reactive Protein 8.10 H Total Protein Albumin Prealbumin Triglycerides Cholesterol LDL Cholesterol Direct HDL Cholesterol PTH Intact Urine pH Urine WBC (Auto) Urine Creatinine Urine Total Protein Fluid Total Protein Vancomycin Trough Rheumatoid Factor Complement C4 Miscellaneous Test Crossmatch 01/31/17 01/31/17 01/31/17 11:16 17:45 17:50 WBC RBC Hgb Hct MCV MCH MCHC RDW Plt Count Lymph % (Auto) Brown % (Auto) Lymph # Brown # Baso # Seg Neutrophils % Seg Neuts % (Manual) Lymphocytes % (Manual) Monocytes % (Manual) Eosinophils % (Manual) Basophils % (Manual) Nucleated RBC % Seg Neutrophils # Seg Neutrophils # Man Lymphocytes # (Manual) Monocytes # (Manual) Eosinophils # (Manual) Basophils # (Manual) PT INR Fibrinogen dRVVT Confirm Interp Factor V Activity POC ABG pH POC ABG pCO2 POC ABG pO2 ABG pO2 ABG HCO3 ABG Base Excess ABG Hemoglobin Oxyhemoglobin Sodium Potassium Chloride Carbon Dioxide BUN Creatinine Glucose POC Glucose 119 H 111 H Lactic Acid Calcium Phosphorus Magnesium Direct Bilirubin AST ALT Alkaline Phosphatase Lactate Dehydrogenase Troponin T C-Reactive Protein Total Protein Albumin Prealbumin Triglycerides Cholesterol LDL Cholesterol Direct HDL Cholesterol PTH Intact 6.76 L Urine pH Urine WBC (Auto) Urine Creatinine Urine Total Protein Fluid Total Protein Vancomycin Trough Rheumatoid Factor Complement C4 Miscellaneous Test Crossmatch 01/31/17 02/01/17 02/01/17 23:19 05:42 09:24 WBC RBC Hgb Hct MCV MCH MCHC RDW Plt Count Lymph % (Auto) Brown % (Auto) Lymph # Brown # Baso # Seg Neutrophils % Seg Neuts % (Manual) Lymphocytes % (Manual) Monocytes % (Manual) Eosinophils % (Manual) Basophils % (Manual) Nucleated RBC % Seg Neutrophils # Seg Neutrophils # Man Lymphocytes # (Manual) Monocytes # (Manual) Eosinophils # (Manual) Basophils # (Manual) PT INR Fibrinogen dRVVT Confirm Interp Factor V Activity POC ABG pH POC ABG pCO2 POC ABG pO2 ABG pO2 ABG HCO3 ABG Base Excess ABG Hemoglobin Oxyhemoglobin Sodium Potassium Chloride Carbon Dioxide BUN Creatinine Glucose POC Glucose 118 H 122 H Lactic Acid Calcium Phosphorus Magnesium 2.60 H Direct Bilirubin AST ALT Alkaline Phosphatase Lactate Dehydrogenase Troponin T C-Reactive Protein Total Protein Albumin Prealbumin Triglycerides Cholesterol LDL Cholesterol Direct HDL Cholesterol PTH Intact Urine pH Urine WBC (Auto) Urine Creatinine Urine Total Protein Fluid Total Protein Vancomycin Trough Rheumatoid Factor Complement C4 Miscellaneous Test Crossmatch 02/01/17 02/01/17 02/02/17 09:24 12:15 07:40 WBC RBC Hgb Hct MCV MCH MCHC RDW Plt Count Lymph % (Auto) Brown % (Auto) Lymph # Brown # Baso # Seg Neutrophils % Seg Neuts % (Manual) Lymphocytes % (Manual) Monocytes % (Manual) Eosinophils % (Manual) Basophils % (Manual) Nucleated RBC % Seg Neutrophils # Seg Neutrophils # Man Lymphocytes # (Manual) Monocytes # (Manual) Eosinophils # (Manual) Basophils # (Manual) PT INR Fibrinogen dRVVT Confirm Interp Factor V Activity POC ABG pH POC ABG pCO2 POC ABG pO2 ABG pO2 ABG HCO3 ABG Base Excess ABG Hemoglobin Oxyhemoglobin Sodium Potassium Chloride Carbon Dioxide BUN 102 H 72 H Creatinine 1.9 H 1.5 H Glucose 120 H POC Glucose 156 H Lactic Acid Calcium Phosphorus Magnesium Direct Bilirubin AST ALT Alkaline Phosphatase Lactate Dehydrogenase Troponin T C-Reactive Protein Total Protein Albumin Prealbumin Triglycerides Cholesterol LDL Cholesterol Direct HDL Cholesterol PTH Intact Urine pH Urine WBC (Auto) Urine Creatinine Urine Total Protein Fluid Total Protein Vancomycin Trough Rheumatoid Factor Complement C4 Miscellaneous Test Crossmatch 02/02/17 02/02/17 02/03/17 10:16 12:11 00:08 WBC 12.0 H RBC 3.08 L Hgb 8.3 L Hct 25.6 L MCV MCH 27 L MCHC RDW 18.2 H Plt Count Lymph % (Auto) Brown % (Auto) Lymph # Brown # Baso # Seg Neutrophils % 78.4 H Seg Neuts % (Manual) Lymphocytes % (Manual) Monocytes % (Manual) Eosinophils % (Manual) Basophils % (Manual) Nucleated RBC % Seg Neutrophils # 9.4 H Seg Neutrophils # Man Lymphocytes # (Manual) Monocytes # (Manual) Eosinophils # (Manual) Basophils # (Manual) PT INR Fibrinogen dRVVT Confirm Interp Factor V Activity POC ABG pH POC ABG pCO2 POC ABG pO2 ABG pO2 ABG HCO3 ABG Base Excess ABG Hemoglobin Oxyhemoglobin Sodium Potassium Chloride Carbon Dioxide BUN Creatinine Glucose POC Glucose 110 H 120 H Lactic Acid Calcium Phosphorus Magnesium Direct Bilirubin AST ALT Alkaline Phosphatase Lactate Dehydrogenase Troponin T C-Reactive Protein Total Protein Albumin Prealbumin Triglycerides Cholesterol LDL Cholesterol Direct HDL Cholesterol PTH Intact Urine pH Urine WBC (Auto) Urine Creatinine Urine Total Protein Fluid Total Protein Vancomycin Trough Rheumatoid Factor Complement C4 Miscellaneous Test Crossmatch 02/03/17 02/03/17 02/03/17 05:41 07:38 11:31 WBC RBC Hgb Hct MCV MCH MCHC RDW Plt Count Lymph % (Auto) Brown % (Auto) Lymph # Brown # Baso # Seg Neutrophils % Seg Neuts % (Manual) Lymphocytes % (Manual) Monocytes % (Manual) Eosinophils % (Manual) Basophils % (Manual) Nucleated RBC % Seg Neutrophils # Seg Neutrophils # Man Lymphocytes # (Manual) Monocytes # (Manual) Eosinophils # (Manual) Basophils # (Manual) PT INR Fibrinogen dRVVT Confirm Interp Factor V Activity POC ABG pH POC ABG pCO2 POC ABG pO2 ABG pO2 ABG HCO3 ABG Base Excess ABG Hemoglobin Oxyhemoglobin Sodium 134 L Potassium Chloride Carbon Dioxide 21 L BUN 91 H Creatinine 1.9 H Glucose 110 H POC Glucose 119 H 119 H Lactic Acid Calcium 10.3 H Phosphorus Magnesium Direct Bilirubin AST ALT Alkaline Phosphatase Lactate Dehydrogenase Troponin T C-Reactive Protein Total Protein Albumin Prealbumin Triglycerides Cholesterol LDL Cholesterol Direct HDL Cholesterol PTH Intact Urine pH Urine WBC (Auto) Urine Creatinine Urine Total Protein Fluid Total Protein Vancomycin Trough Rheumatoid Factor Complement C4 Miscellaneous Test Crossmatch 02/03/17 02/04/17 02/04/17 17:13 04:00 05:18 WBC RBC Hgb Hct MCV MCH MCHC RDW Plt Count Lymph % (Auto) Brown % (Auto) Lymph # Brown # Baso # Seg Neutrophils % Seg Neuts % (Manual) Lymphocytes % (Manual) Monocytes % (Manual) Eosinophils % (Manual) Basophils % (Manual) Nucleated RBC % Seg Neutrophils # Seg Neutrophils # Man Lymphocytes # (Manual) Monocytes # (Manual) Eosinophils # (Manual) Basophils # (Manual) PT INR Fibrinogen dRVVT Confirm Interp Factor V Activity POC ABG pH POC ABG pCO2 POC ABG pO2 ABG pO2 ABG HCO3 ABG Base Excess ABG Hemoglobin Oxyhemoglobin Sodium 136 L Potassium Chloride Carbon Dioxide BUN 58 H Creatinine 1.3 H Glucose 103 H POC Glucose 133 H 132 H Lactic Acid Calcium Phosphorus 2.00 L D Magnesium 1.60 L Direct Bilirubin AST ALT Alkaline Phosphatase Lactate Dehydrogenase Troponin T C-Reactive Protein Total Protein Albumin Prealbumin Triglycerides Cholesterol LDL Cholesterol Direct HDL Cholesterol PTH Intact Urine pH Urine WBC (Auto) Urine Creatinine Urine Total Protein Fluid Total Protein Vancomycin Trough Rheumatoid Factor Complement C4 Miscellaneous Test Crossmatch 02/05/17 02/05/17 02/05/17 00:01 04:00 06:42 WBC RBC Hgb Hct MCV MCH MCHC RDW Plt Count Lymph % (Auto) Brown % (Auto) Lymph # Brown # Baso # Seg Neutrophils % Seg Neuts % (Manual) Lymphocytes % (Manual) Monocytes % (Manual) Eosinophils % (Manual) Basophils % (Manual) Nucleated RBC % Seg Neutrophils # Seg Neutrophils # Man Lymphocytes # (Manual) Monocytes # (Manual) Eosinophils # (Manual) Basophils # (Manual) PT INR Fibrinogen dRVVT Confirm Interp Factor V Activity POC ABG pH POC ABG pCO2 POC ABG pO2 ABG pO2 ABG HCO3 ABG Base Excess ABG Hemoglobin Oxyhemoglobin Sodium Potassium Chloride Carbon Dioxide BUN 83 H Creatinine 1.8 H Glucose POC Glucose 119 H 110 H Lactic Acid Calcium 10.7 H Phosphorus Magnesium Direct Bilirubin AST ALT Alkaline Phosphatase Lactate Dehydrogenase Troponin T C-Reactive Protein Total Protein Albumin Prealbumin Triglycerides Cholesterol LDL Cholesterol Direct HDL Cholesterol PTH Intact Urine pH Urine WBC (Auto) Urine Creatinine Urine Total Protein Fluid Total Protein Vancomycin Trough Rheumatoid Factor Complement C4 Miscellaneous Test Crossmatch 02/05/17 02/05/17 02/05/17 09:59 11:47 23:44 WBC RBC 2.69 L Hgb 7.2 L Hct 22.5 L MCV MCH 27 L MCHC RDW 18.6 H Plt Count Lymph % (Auto) Brown % (Auto) 9.2 H Lymph # Brown # 0.9 H Baso # Seg Neutrophils % Seg Neuts % (Manual) Lymphocytes % (Manual) Monocytes % (Manual) Eosinophils % (Manual) Basophils % (Manual) Nucleated RBC % Seg Neutrophils # Seg Neutrophils # Man Lymphocytes # (Manual) Monocytes # (Manual) Eosinophils # (Manual) Basophils # (Manual) PT INR Fibrinogen dRVVT Confirm Interp Factor V Activity POC ABG pH POC ABG pCO2 POC ABG pO2 ABG pO2 ABG HCO3 ABG Base Excess ABG Hemoglobin Oxyhemoglobin Sodium Potassium Chloride Carbon Dioxide BUN Creatinine Glucose POC Glucose 130 H 123 H Lactic Acid Calcium Phosphorus Magnesium Direct Bilirubin AST ALT Alkaline Phosphatase Lactate Dehydrogenase Troponin T C-Reactive Protein Total Protein Albumin Prealbumin Triglycerides Cholesterol LDL Cholesterol Direct HDL Cholesterol PTH Intact Urine pH Urine WBC (Auto) Urine Creatinine Urine Total Protein Fluid Total Protein Vancomycin Trough Rheumatoid Factor Complement C4 Miscellaneous Test Crossmatch 02/06/17 02/06/17 02/06/17 04:45 05:58 12:01 WBC RBC Hgb Hct MCV MCH MCHC RDW Plt Count Lymph % (Auto) Brown % (Auto) Lymph # Brown # Baso # Seg Neutrophils % Seg Neuts % (Manual) Lymphocytes % (Manual) Monocytes % (Manual) Eosinophils % (Manual) Basophils % (Manual) Nucleated RBC % Seg Neutrophils # Seg Neutrophils # Man Lymphocytes # (Manual) Monocytes # (Manual) Eosinophils # (Manual) Basophils # (Manual) PT INR Fibrinogen dRVVT Confirm Interp Factor V Activity POC ABG pH POC ABG pCO2 POC ABG pO2 ABG pO2 ABG HCO3 ABG Base Excess ABG Hemoglobin Oxyhemoglobin Sodium Potassium Chloride Carbon Dioxide BUN 101 H Creatinine 2.0 H Glucose 102 H POC Glucose 115 H 132 H Lactic Acid Calcium 10.6 H Phosphorus Magnesium Direct Bilirubin AST ALT Alkaline Phosphatase 199 H Lactate Dehydrogenase Troponin T C-Reactive Protein Total Protein Albumin 1.4 L Prealbumin Triglycerides Cholesterol LDL Cholesterol Direct HDL Cholesterol PTH Intact Urine pH Urine WBC (Auto) Urine Creatinine Urine Total Protein Fluid Total Protein Vancomycin Trough Rheumatoid Factor Complement C4 Miscellaneous Test Crossmatch 02/06/17 02/06/17 02/07/17 17:41 23:32 05:04 WBC RBC Hgb Hct MCV MCH MCHC RDW Plt Count Lymph % (Auto) Brown % (Auto) Lymph # Brown # Baso # Seg Neutrophils % Seg Neuts % (Manual) Lymphocytes % (Manual) Monocytes % (Manual) Eosinophils % (Manual) Basophils % (Manual) Nucleated RBC % Seg Neutrophils # Seg Neutrophils # Man Lymphocytes # (Manual) Monocytes # (Manual) Eosinophils # (Manual) Basophils # (Manual) PT INR Fibrinogen dRVVT Confirm Interp Factor V Activity POC ABG pH POC ABG pCO2 POC ABG pO2 ABG pO2 ABG HCO3 ABG Base Excess ABG Hemoglobin Oxyhemoglobin Sodium Potassium Chloride Carbon Dioxide BUN Creatinine Glucose POC Glucose 134 H 128 H 119 H Lactic Acid Calcium Phosphorus Magnesium Direct Bilirubin AST ALT Alkaline Phosphatase Lactate Dehydrogenase Troponin T C-Reactive Protein Total Protein Albumin Prealbumin Triglycerides Cholesterol LDL Cholesterol Direct HDL Cholesterol PTH Intact Urine pH Urine WBC (Auto) Urine Creatinine Urine Total Protein Fluid Total Protein Vancomycin Trough Rheumatoid Factor Complement C4 Miscellaneous Test Crossmatch 02/07/17 02/07/17 02/07/17 06:30 11:20 17:13 WBC RBC Hgb Hct MCV MCH MCHC RDW Plt Count Lymph % (Auto) Brown % (Auto) Lymph # Brown # Baso # Seg Neutrophils % Seg Neuts % (Manual) Lymphocytes % (Manual) Monocytes % (Manual) Eosinophils % (Manual) Basophils % (Manual) Nucleated RBC % Seg Neutrophils # Seg Neutrophils # Man Lymphocytes # (Manual) Monocytes # (Manual) Eosinophils # (Manual) Basophils # (Manual) PT INR Fibrinogen dRVVT Confirm Interp Factor V Activity POC ABG pH POC ABG pCO2 POC ABG pO2 ABG pO2 ABG HCO3 ABG Base Excess ABG Hemoglobin Oxyhemoglobin Sodium Potassium 3.4 L Chloride Carbon Dioxide BUN 69 H Creatinine 1.5 H Glucose 105 H POC Glucose 117 H 110 H Lactic Acid Calcium Phosphorus Magnesium 1.50 L Direct Bilirubin AST ALT Alkaline Phosphatase Lactate Dehydrogenase Troponin T C-Reactive Protein Total Protein Albumin Prealbumin Triglycerides Cholesterol LDL Cholesterol Direct HDL Cholesterol PTH Intact Urine pH Urine WBC (Auto) Urine Creatinine Urine Total Protein Fluid Total Protein Vancomycin Trough Rheumatoid Factor Complement C4 Miscellaneous Test Crossmatch 02/07/17 02/08/17 02/08/17 20:47 04:00 11:43 WBC RBC Hgb Hct MCV MCH MCHC RDW Plt Count Lymph % (Auto) Brown % (Auto) Lymph # Brown # Baso # Seg Neutrophils % Seg Neuts % (Manual) Lymphocytes % (Manual) Monocytes % (Manual) Eosinophils % (Manual) Basophils % (Manual) Nucleated RBC % Seg Neutrophils # Seg Neutrophils # Man Lymphocytes # (Manual) Monocytes # (Manual) Eosinophils # (Manual) Basophils # (Manual) PT INR Fibrinogen dRVVT Confirm Interp Factor V Activity POC ABG pH POC ABG pCO2 POC ABG pO2 ABG pO2 ABG HCO3 ABG Base Excess ABG Hemoglobin Oxyhemoglobin Sodium Potassium Chloride Carbon Dioxide BUN 86 H Creatinine 1.7 H Glucose POC Glucose 115 H 122 H Lactic Acid Calcium Phosphorus Magnesium 1.60 L Direct Bilirubin AST ALT Alkaline Phosphatase Lactate Dehydrogenase Troponin T C-Reactive Protein Total Protein Albumin Prealbumin Triglycerides Cholesterol LDL Cholesterol Direct HDL Cholesterol PTH Intact Urine pH Urine WBC (Auto) Urine Creatinine Urine Total Protein Fluid Total Protein Vancomycin Trough Rheumatoid Factor Complement C4 Miscellaneous Test Crossmatch 02/08/17 02/09/17 02/09/17 17:36 05:44 11:30 WBC RBC Hgb Hct MCV MCH MCHC RDW Plt Count Lymph % (Auto) Brown % (Auto) Lymph # Brown # Baso # Seg Neutrophils % Seg Neuts % (Manual) Lymphocytes % (Manual) Monocytes % (Manual) Eosinophils % (Manual) Basophils % (Manual) Nucleated RBC % Seg Neutrophils # Seg Neutrophils # Man Lymphocytes # (Manual) Monocytes # (Manual) Eosinophils # (Manual) Basophils # (Manual) PT INR Fibrinogen dRVVT Confirm Interp Factor V Activity POC ABG pH POC ABG pCO2 POC ABG pO2 ABG pO2 ABG HCO3 ABG Base Excess ABG Hemoglobin Oxyhemoglobin Sodium Potassium Chloride Carbon Dioxide BUN Creatinine Glucose POC Glucose 125 H 117 H 120 H Lactic Acid Calcium Phosphorus Magnesium Direct Bilirubin AST ALT Alkaline Phosphatase Lactate Dehydrogenase Troponin T C-Reactive Protein Total Protein Albumin Prealbumin Triglycerides Cholesterol LDL Cholesterol Direct HDL Cholesterol PTH Intact Urine pH Urine WBC (Auto) Urine Creatinine Urine Total Protein Fluid Total Protein Vancomycin Trough Rheumatoid Factor Complement C4 Miscellaneous Test Crossmatch 02/09/17 02/10/17 02/10/17 23:45 05:45 05:50 WBC RBC Hgb Hct MCV MCH MCHC RDW Plt Count Lymph % (Auto) Brown % (Auto) Lymph # Brown # Baso # Seg Neutrophils % Seg Neuts % (Manual) Lymphocytes % (Manual) Monocytes % (Manual) Eosinophils % (Manual) Basophils % (Manual) Nucleated RBC % Seg Neutrophils # Seg Neutrophils # Man Lymphocytes # (Manual) Monocytes # (Manual) Eosinophils # (Manual) Basophils # (Manual) PT INR Fibrinogen dRVVT Confirm Interp Factor V Activity POC ABG pH POC ABG pCO2 POC ABG pO2 ABG pO2 ABG HCO3 ABG Base Excess ABG Hemoglobin Oxyhemoglobin Sodium Potassium Chloride Carbon Dioxide BUN 85 H Creatinine 1.8 H Glucose 109 H POC Glucose 114 H 189 H Lactic Acid Calcium Phosphorus Magnesium 2.50 H Direct Bilirubin AST ALT Alkaline Phosphatase Lactate Dehydrogenase Troponin T C-Reactive Protein Total Protein Albumin Prealbumin Triglycerides Cholesterol LDL Cholesterol Direct HDL Cholesterol PTH Intact Urine pH Urine WBC (Auto) Urine Creatinine Urine Total Protein Fluid Total Protein Vancomycin Trough Rheumatoid Factor Complement C4 Miscellaneous Test Crossmatch 02/10/17 02/10/17 05:51 11:55 WBC RBC Hgb Hct MCV MCH MCHC RDW Plt Count Lymph % (Auto) Brown % (Auto) Lymph # Brown # Baso # Seg Neutrophils % Seg Neuts % (Manual) Lymphocytes % (Manual) Monocytes % (Manual) Eosinophils % (Manual) Basophils % (Manual) Nucleated RBC % Seg Neutrophils # Seg Neutrophils # Man Lymphocytes # (Manual) Monocytes # (Manual) Eosinophils # (Manual) Basophils # (Manual) PT INR Fibrinogen dRVVT Confirm Interp Factor V Activity POC ABG pH POC ABG pCO2 POC ABG pO2 ABG pO2 ABG HCO3 ABG Base Excess ABG Hemoglobin Oxyhemoglobin Sodium Potassium Chloride Carbon Dioxide BUN Creatinine Glucose POC Glucose 106 H 146 H Lactic Acid Calcium Phosphorus Magnesium Direct Bilirubin AST ALT Alkaline Phosphatase Lactate Dehydrogenase Troponin T C-Reactive Protein Total Protein Albumin Prealbumin Triglycerides Cholesterol LDL Cholesterol Direct HDL Cholesterol PTH Intact Urine pH Urine WBC (Auto) Urine Creatinine Urine Total Protein Fluid Total Protein Vancomycin Trough Rheumatoid Factor Complement C4 Miscellaneous Test Crossmatch Allied health notes reviewed: RT (Has been on PS 15/5, no desaturations today, weaned down FIO2)
--- NOTE | 2017-02-10 16:54 | Progress Note ---
Assessment and Plan Assessment and Plan --Severe Sepsis with septic shock, recurrent. Patient with multiple episodes of sepsis. Initial episode due to presumed aspiration pneumonia and septic episode on 09/23 from candidemia then a third episode from peritonitis from gastric perforation from dislodged PEG +/-UTI. Patient was also noted to have had Candidemia with Blood cultures positive for Silvia albicans 09/23, 09/25 but negative on 09/30. Antibiotic discontinued on 12/05 per ID. patient is s/p R thoracentesis on 11/14, 240cc of serous fluid removed, cx of fluid was negative. Also, Stool negative for C. difficile --Surgical wound infection/gram-negative sepsis/candidemia/peritonitis. Continue wound care to ostomy sites --Acute hypoxic respiratory failure, status post tracheostomy Patient placed back on ventilation. Patient currently with CPAP mode. Patient failed T-piece trials. Tracheostomy tube leak. Pulmonary following --Acute massive CVA with mass effect; continue antiplatelets and statins CT showed continued evolution of left MCA infarct with slight mass effect and edema, and there is no hemorrhage -PRINCE showed hyperdynamic ventricle with ef of 75%, neither clot nor septal defect seen -MRA Brain shows near complete occlusion of M2 and M3 of the left MCA carotid doppler negative -Echo shows preserved systolic function but does show some left ventricular diastolic dysfunction -continue asa and statin --Oliguric acute kidney injury. Etiology secondary to ATN on CKD. Baseline creatinine is approximately 1.7. Today's BUN/Cr is 85/1.8 --Paroxysmal atrial fibrillation with rapid ventricular rate, failed cardioversion Continue current medications, Not a candidate for anticoagulation secondary to anemia, thrombocytopenia and massive CVA --Anemia; probably secondary to GI bleeding Patient received multiple units of PRBC in the past, hemoglobin currently stable -Toxic metabolic encephalopathy; supportive care --Diabetes mellitus type 2, Insulin/SSI --Severe protein caloric malnutrition, cont TPN --s/p Thrombocytopenia. Now resolved --DVT prophylaxis, SCDs, no pharmacological agent given anemia , thrombocytopenia, massive stroke --Full code status, very poor prognosis Subjective Date of service: 02/10/17 Principal diagnosis: Acute resp failure on MVS; S/P Acute CVA; Acute Encephalopathy; JUANITA Interval history: No interval change Objective - Constitutional Vitals: Vital Signs - 12hr 02/10/17 02/10/17 02/10/17 05:00 05:20 05:30 Temperature Pulse Rate 121 H 121 H 135 H Pulse Rate [ Anterior Bilateral Throughout] Respiratory 24 12 Rate Respiratory Rate [Anterior Bilateral Throughout] Blood Pressure 156/89 156/89 156/89 O2 Sat by Pulse 100 Oximetry O2 Sat by Pulse Oximetry [ Assessment] O2 Sat by Pulse Oximetry [ Throughout] 02/10/17 02/10/17 02/10/17 06:00 06:30 07:00 Temperature Pulse Rate 120 H 118 H 119 H Pulse Rate [ Anterior Bilateral Throughout] Respiratory 17 18 21 Rate Respiratory Rate [Anterior Bilateral Throughout] Blood Pressure 139/88 139/88 152/75 O2 Sat by Pulse 99 100 100 Oximetry O2 Sat by Pulse Oximetry [ Assessment] O2 Sat by Pulse Oximetry [ Throughout] 02/10/17 02/10/17 02/10/17 07:31 08:00 08:30 Temperature 99 F Pulse Rate 118 H 120 H 126 H Pulse Rate [ 127 H Anterior Bilateral Throughout] Respiratory 20 24 Rate Respiratory 21 Rate [Anterior Bilateral Throughout] Blood Pressure 139/88 161/69 161/69 O2 Sat by Pulse 100 100 100 Oximetry O2 Sat by Pulse Oximetry [ Assessment] O2 Sat by Pulse Oximetry [ Throughout] 02/10/17 02/10/17 02/10/17 08:31 08:44 08:56 Temperature Pulse Rate 125 H 132 H Pulse Rate [ 132 H Anterior Bilateral Throughout] Respiratory 25 H 38 H Rate Respiratory 38 H Rate [Anterior Bilateral Throughout] Blood Pressure 161/69 160/96 O2 Sat by Pulse 100 99 Oximetry O2 Sat by Pulse 99 Oximetry [ Assessment] O2 Sat by Pulse Oximetry [ Throughout] 02/10/17 02/10/17 02/10/17 09:00 09:31 09:40 Temperature Pulse Rate 137 H 135 H 133 H Pulse Rate [ Anterior Bilateral Throughout] Respiratory 45 H 46 H Rate Respiratory Rate [Anterior Bilateral Throughout] Blood Pressure 150/95 150/95 160/95 O2 Sat by Pulse 99 98 Oximetry O2 Sat by Pulse Oximetry [ Assessment] O2 Sat by Pulse Oximetry [ Throughout] 02/10/17 02/10/17 02/10/17 10:00 10:31 10:45 Temperature 99.0 F Pulse Rate 126 H 118 H 117 H Pulse Rate [ Anterior Bilateral Throughout] Respiratory 28 H 39 H 28 H Rate Respiratory Rate [Anterior Bilateral Throughout] Blood Pressure 164/105 164/105 144/90 O2 Sat by Pulse 100 100 Oximetry O2 Sat by Pulse Oximetry [ Assessment] O2 Sat by Pulse 100 Oximetry [ Throughout] 02/10/17 02/10/17 02/10/17 11:00 11:15 11:30 Temperature Pulse Rate 120 H 130 H 132 H Pulse Rate [ Anterior Bilateral Throughout] Respiratory 34 H 44 H Rate Respiratory Rate [Anterior Bilateral Throughout] Blood Pressure 119/79 115/84 105/77 O2 Sat by Pulse 100 88 Oximetry O2 Sat by Pulse Oximetry [ Assessment] O2 Sat by Pulse Oximetry [ Throughout] 02/10/17 02/10/17 02/10/17 11:47 11:49 12:00 Temperature 99.0 F Pulse Rate 132 H 132 H 135 H Pulse Rate [ Anterior Bilateral Throughout] Respiratory 36 H 37 H Rate Respiratory Rate [Anterior Bilateral Throughout] Blood Pressure 106/76 106/76 106/78 O2 Sat by Pulse 100 100 Oximetry O2 Sat by Pulse Oximetry [ Assessment] O2 Sat by Pulse Oximetry [ Throughout] 02/10/17 02/10/17 02/10/17 12:02 12:16 12:30 Temperature Pulse Rate 134 H 132 H 130 H Pulse Rate [ Anterior Bilateral Throughout] Respiratory 40 H Rate Respiratory Rate [Anterior Bilateral Throughout] Blood Pressure 106/78 91/68 108/73 O2 Sat by Pulse Oximetry O2 Sat by Pulse Oximetry [ Assessment] O2 Sat by Pulse Oximetry [ Throughout] 02/10/17 02/10/17 02/10/17 12:31 12:45 13:00 Temperature Pulse Rate 128 H 128 H 136 H Pulse Rate [ Anterior Bilateral Throughout] Respiratory 48 H Rate Respiratory Rate [Anterior Bilateral Throughout] Blood Pressure 114/84 108/73 98/65 O2 Sat by Pulse Oximetry O2 Sat by Pulse Oximetry [ Assessment] O2 Sat by Pulse Oximetry [ Throughout] 02/10/17 02/10/17 02/10/17 13:10 13:15 13:30 Temperature Pulse Rate 131 H 132 H 127 H Pulse Rate [ Anterior Bilateral Throughout] Respiratory 30 H Rate Respiratory Rate [Anterior Bilateral Throughout] Blood Pressure 98/65 98/67 101/77 O2 Sat by Pulse Oximetry O2 Sat by Pulse Oximetry [ Assessment] O2 Sat by Pulse Oximetry [ Throughout] 02/10/17 02/10/17 02/10/17 13:45 14:00 14:30 Temperature 97.6 F Pulse Rate 129 H 129 H 134 H Pulse Rate [ Anterior Bilateral Throughout] Respiratory 41 H 41 H Rate Respiratory Rate [Anterior Bilateral Throughout] Blood Pressure 97/38 113/78 118/86 O2 Sat by Pulse 96 Oximetry O2 Sat by Pulse Oximetry [ Assessment] O2 Sat by Pulse 99 Oximetry [ Throughout] 02/10/17 02/10/17 02/10/17 14:46 15:00 15:30 Temperature Pulse Rate 138 H 142 H 133 H Pulse Rate [ Anterior Bilateral Throughout] Respiratory 33 H 38 H Rate Respiratory Rate [Anterior Bilateral Throughout] Blood Pressure 118/86 119/81 123/83 O2 Sat by Pulse 97 96 Oximetry O2 Sat by Pulse Oximetry [ Assessment] O2 Sat by Pulse Oximetry [ Throughout] 02/10/17 02/10/17 16:00 16:06 Temperature 99.5 F Pulse Rate 137 H Pulse Rate [ Anterior Bilateral Throughout] Respiratory Rate Respiratory Rate [Anterior Bilateral Throughout] Blood Pressure 136/99 O2 Sat by Pulse 97 Oximetry O2 Sat by Pulse Oximetry [ Assessment] O2 Sat by Pulse Oximetry [ Throughout] General appearance: Present: no acute distress, well-nourished - EENT Eyes: PERRL, EOM intact ENT: hearing intact, clear oral mucosa Ears: bilateral: normal - Neck Neck: supple, normal ROM - Respiratory Respiratory effort: normal Respiratory: bilateral: CTA - Breasts Breasts: normal - Cardiovascular Rhythm: regular Heart Sounds: Present: S1 & S2. Absent: gallop, rub Extremities: pulses intact, No edema, normal color, Full ROM - Gastrointestinal General gastrointestinal: Present: soft, non-tender, non-distended, normal bowel sounds - Genitourinary Female genitourinary: normal - Integumentary Integumentary: clear, warm, dry - Musculoskeletal Musculoskeletal: 1, strength equal bilaterally - Neurologic Neurologic: moves all extremities - Psychiatric Psychiatric: other (Un responsive) - Allied health notes Allied health notes reviewed: nursing, case management - Labs CBC & Chem 7: 02/05/17 09:59 02/11/17 04:08 Labs: Abnormal lab results 02/09/17 02/10/17 02/10/17 Range/Units 23:45 05:45 05:50 BUN 85 H (7-17) mg/dL Creatinine 1.8 H (0.7-1.2) mg/dL Glucose 109 H (65-100) mg/dL POC Glucose 114 H 189 H (70-105) Magnesium 2.50 H (1.7-2.3) mg/dL 02/10/17 02/10/17 Range/Units 05:51 11:55 BUN (7-17) mg/dL Creatinine (0.7-1.2) mg/dL Glucose (65-100) mg/dL POC Glucose 106 H 146 H (70-105) Magnesium (1.7-2.3) mg/dL
[2017-02-10] MEDS: ZOFRAN IV PRN (19:48)
[2017-02-10] MEDS ORDERED: TPN ADULT IV SCH (20:00)
[2017-02-10] MEDS ORDERED: INTRALIPID 20% 250 ML IV SCH (20:00)
[2017-02-10] MEDS: TAZICEF IV SCH (20:01)
[2017-02-10] MEDS: NACL 0.9% IV SCH (20:01)
[2017-02-11] MEDS: HumuLIN R SUB-Q SCH ×4 (01:14→18:23)
[2017-02-11 05:17] LABS: Calcium 9.8 mg/dL (8.4-10.2)
[2017-02-11] MEDS: REGLAN IV SCH ×2 (05:30→13:10)
[2017-02-11] MEDS: DUONEB *Not for PRN Use IH SCH ×3 (07:43→19:37)
[2017-02-11] MEDS: ROBINUL PO SCH (09:49)
[2017-02-11] MEDS: HEPARIN SUB-Q SCH (09:49)
[2017-02-11] MEDS: MAG-OX PO SCH (09:49)
[2017-02-11] MEDS: PROTONIX FEEDTUBE SCH (09:49)
--- NOTE | 2017-02-11 11:13 | Progress Note ---
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 shift * Acute hypoxic respiratory failure * Left renal artery stenosis * Metabolic acidosis - improved * Anemia * Hyponatremia - multifactorial * tachycardia * Pleural effusion Plan: * Patient had uneventful hemodialysis yesterday. Required intravenous albumin to maintain blood pressure . * Continue dialysis on Wednesdays and Fridays schedule for now. * Patient's serum creatinine is noted to be low. However she is oliguric and remains volume overloaded. Needs to be maintained on dialysis at this time. . * Avoid nephrotoxins * Adjust meds for GFR less than 10 * No evidence of renal recovery at this time Subjective Date of service: 02/11/17 Principal diagnosis: Acute resp failure on MVS; S/P Acute CVA; Acute Encephalopathy; JUANITA Interval history: Patient remains in the ICU. Unresponsive. Objective - Vital Signs Vital signs: Vital Signs - 12hr 02/10/17 02/10/17 02/10/17 23: 23:30 23:58 Temperature 98.9 F Pulse Rate 131 H 133 H Pulse Rate [ Anterior Bilateral Throughout] Pulse Rate [ Apical] Pulse Rate [ From Monitor] Pulse Rate [ Left Dorsalis Pedis] Pulse Rate [ Left Radial] Pulse Rate [ Right Dorsalis Pedis] Pulse Rate [ Right Radial] Respiratory 22 Rate Respiratory Rate [Anterior Bilateral Throughout] Blood Pressure 105/63 105/63 O2 Sat by Pulse 98 97 Oximetry O2 Sat by Pulse Oximetry [ Assessment] 02/11/17 02/11/17 02/11/17 00:00 00:30 01:00 Temperature Pulse Rate 132 H 129 H 124 H Pulse Rate [ Anterior Bilateral Throughout] Pulse Rate [ 124 H Apical] Pulse Rate [ 124 H From Monitor] Pulse Rate [ 124 H Left Dorsalis Pedis] Pulse Rate [ 124 H Left Radial] Pulse Rate [ 124 H Right Dorsalis Pedis] Pulse Rate [ 124 H Right Radial] Respiratory 20 19 20 Rate Respiratory Rate [Anterior Bilateral Throughout] Blood Pressure 87/55 95/59 89/56 O2 Sat by Pulse 100 99 99 Oximetry O2 Sat by Pulse Oximetry [ Assessment] 02/11/17 02/11/17 02/11/17 01:30 02:00 02:30 Temperature Pulse Rate 130 H 134 H 131 H Pulse Rate [ Anterior Bilateral Throughout] Pulse Rate [ Apical] Pulse Rate [ From Monitor] Pulse Rate [ Left Dorsalis Pedis] Pulse Rate [ Left Radial] Pulse Rate [ Right Dorsalis Pedis] Pulse Rate [ Right Radial] Respiratory 21 21 18 Rate Respiratory Rate [Anterior Bilateral Throughout] Blood Pressure 102/61 106/71 99/62 O2 Sat by Pulse 99 98 98 Oximetry O2 Sat by Pulse Oximetry [ Assessment] 02/11/17 02/11/17 02/11/17 03:00 03:20 03:30 Temperature Pulse Rate 131 H 133 H Pulse Rate [ Anterior Bilateral Throughout] Pulse Rate [ Apical] Pulse Rate [ From Monitor] Pulse Rate [ Left Dorsalis Pedis] Pulse Rate [ Left Radial] Pulse Rate [ Right Dorsalis Pedis] Pulse Rate [ Right Radial] Respiratory 21 23 Rate Respiratory Rate [Anterior Bilateral Throughout] Blood Pressure 102/66 101/68 O2 Sat by Pulse 98 98 Oximetry O2 Sat by Pulse 98 Oximetry [ Assessment] 02/11/17 02/11/17 02/11/17 04:00 04:15 04:31 Temperature 98.9 F Pulse Rate 130 H 134 H 140 H Pulse Rate [ Anterior Bilateral Throughout] Pulse Rate [ 133 H Apical] Pulse Rate [ 133 H From Monitor] Pulse Rate [ 133 H Left Dorsalis Pedis] Pulse Rate [ 133 H Left Radial] Pulse Rate [ 133 H Right Dorsalis Pedis] Pulse Rate [ 133 H Right Radial] Respiratory 20 26 H Rate Respiratory Rate [Anterior Bilateral Throughout] Blood Pressure 103/70 101/68 103/70 O2 Sat by Pulse 98 98 96 Oximetry O2 Sat by Pulse Oximetry [ Assessment] 02/11/17 02/11/17 02/11/17 05:00 05:30 06:01 Temperature Pulse Rate 133 H 138 H 133 H Pulse Rate [ Anterior Bilateral Throughout] Pulse Rate [ Apical] Pulse Rate [ From Monitor] Pulse Rate [ Left Dorsalis Pedis] Pulse Rate [ Left Radial] Pulse Rate [ Right Dorsalis Pedis] Pulse Rate [ Right Radial] Respiratory 22 24 20 Rate Respiratory Rate [Anterior Bilateral Throughout] Blood Pressure 126/84 135/92 132/81 O2 Sat by Pulse 97 97 98 Oximetry O2 Sat by Pulse Oximetry [ Assessment] 02/11/17 02/11/17 02/11/17 06:31 07:01 07:30 Temperature Pulse Rate 135 H 135 H 130 H Pulse Rate [ Anterior Bilateral Throughout] Pulse Rate [ Apical] Pulse Rate [ From Monitor] Pulse Rate [ Left Dorsalis Pedis] Pulse Rate [ Left Radial] Pulse Rate [ Right Dorsalis Pedis] Pulse Rate [ Right Radial] Respiratory 21 21 24 Rate Respiratory Rate [Anterior Bilateral Throughout] Blood Pressure 110/68 118/67 119/76 O2 Sat by Pulse 97 98 98 Oximetry O2 Sat by Pulse Oximetry [ Assessment] 02/11/17 02/11/17 02/11/17 07:43 07:50 07:53 Temperature Pulse Rate Pulse Rate [ 138 H 139 H Anterior Bilateral Throughout] Pulse Rate [ Apical] Pulse Rate [ From Monitor] Pulse Rate [ Left Dorsalis Pedis] Pulse Rate [ Left Radial] Pulse Rate [ Right Dorsalis Pedis] Pulse Rate [ Right Radial] Respiratory Rate Respiratory 22 22 Rate [Anterior Bilateral Throughout] Blood Pressure O2 Sat by Pulse Oximetry O2 Sat by Pulse 98 Oximetry [ Assessment] 02/11/17 02/11/17 02/11/17 08:00 08:01 10:20 Temperature 97.9 F Pulse Rate 134 H 136 H 138 H Pulse Rate [ Anterior Bilateral Throughout] Pulse Rate [ Apical] Pulse Rate [ From Monitor] Pulse Rate [ Left Dorsalis Pedis] Pulse Rate [ Left Radial] Pulse Rate [ Right Dorsalis Pedis] Pulse Rate [ Right Radial] Respiratory 20 28 H Rate Respiratory Rate [Anterior Bilateral Throughout] Blood Pressure 122/77 122/77 119/67 O2 Sat by Pulse 98 97 99 Oximetry O2 Sat by Pulse Oximetry [ Assessment] - General Appearance General appearance: well-developed, well-nourished, appears stated age EENT: PERRL, mucous membranes moist Neck: no JVD, other (tracheostomy tube in place. Connected to the ventilator. Left IJ PermCath in place) Respiratory: Present: Ronchi (bilateral scattered rhonchi) Cardiology: regular, normal heart rate Gastrointestinal: normoactive bowel sounds Integumentary: other (1+ edema) - Lab 02/05/17 09:59 02/11/17 04:08 Most recent lab results ABG pH 7.450 pH Units (7.350-7.450) 12/05/16 Unknown ABG pCO2 29.6 mm Hg 12/05/16 Unknown ABG pO2 75.2 mm Hg (80.0-90.0) L 12/05/16 Unknown ABG HCO3 20.1 mmol/L (20.0-26.0) 12/05/16 Unknown ABG O2 Saturation 96.8 % (95.0-99.0) 12/05/16 Unknown Calcium 9.8 mg/dL (8.4-10.2) 02/11/17 04:08 Phosphorus 2.60 mg/dL (2.5-4.5) 02/11/17 04:08 Magnesium 2.10 mg/dL (1.7-2.3) 02/11/17 04:08 Urine Creatinine 19.7 mg/dL (0.1-20.0) 11/12/16 10:18 Urine Sodium 36 mEq/L 09/16/16 19:19 Urine Total Protein 16 mg/dL (5-11.8) H 09/16/16 19:19
--- NOTE | 2017-02-11 11:43 | Progress Note ---
Assessment and Plan Assessment and Plan Massive stroke with mass effect, vegetative stage; supportive care Acute hypoxic respiratory failure, s/p tracheostomy vent dependent Paroxysmal atrial fibrillation with RVR, failed cardioversion, beta blockers, not a candidate for anticoagulation Multiple episodes of sepsis with septic shock during her hospitalization s/p aspiration pneumonia/peritonitis from gastric perforation/UTI/candidemia/ decubitus ulcer s/p sacral decubitus debridement, Right pleural effusion - scheduled for chest ultrasound for possible thoracentesis Currently on meropenem with stop date 02/04 Pleural effusion ; IR tried to place chest tube,very little pleural fluid, only 3-5 mL Acute renal failure/ ATN, received dialysis as needed Diabetes, stable, Accu-Chek sliding scale coverage and ADA diet and insulin as needed Anemia, s/p multiple PRBC transfusions Severe protein calorie malnutrition, supportive care to feeding full code, poor prognosis Family aware of patient's condition and poor prognosis Had multiple family meetings in the past, family wants everything to be done Discharge planning; possible placement, social issues Subjective Date of service: 02/11/17 Principal diagnosis: Acute resp failure on MVS; S/P Acute CVA; Acute Encephalopathy; JUANITA Interval history: No interval change Objective - Constitutional Vitals: Vital Signs - 12hr 02/10/17 02/11/17 02/11/17 23:58 00:00 00:30 Temperature Pulse Rate 133 H 132 H 129 H Pulse Rate [ Anterior Bilateral Throughout] Pulse Rate [ 124 H Apical] Pulse Rate [ 124 H From Monitor] Pulse Rate [ 124 H Left Dorsalis Pedis] Pulse Rate [ 124 H Left Radial] Pulse Rate [ 124 H Right Dorsalis Pedis] Pulse Rate [ 124 H Right Radial] Respiratory 20 19 Rate Respiratory Rate [Anterior Bilateral Throughout] Blood Pressure 105/63 87/55 95/59 O2 Sat by Pulse 97 100 99 Oximetry O2 Sat by Pulse Oximetry [ Assessment] 02/11/17 02/11/17 02/11/17 01:00 01:30 02:00 Temperature Pulse Rate 124 H 130 H 134 H Pulse Rate [ Anterior Bilateral Throughout] Pulse Rate [ Apical] Pulse Rate [ From Monitor] Pulse Rate [ Left Dorsalis Pedis] Pulse Rate [ Left Radial] Pulse Rate [ Right Dorsalis Pedis] Pulse Rate [ Right Radial] Respiratory 20 21 21 Rate Respiratory Rate [Anterior Bilateral Throughout] Blood Pressure 89/56 102/61 106/71 O2 Sat by Pulse 99 99 98 Oximetry O2 Sat by Pulse Oximetry [ Assessment] 02/11/17 02/11/17 02/11/17 02:30 03:00 03:20 Temperature Pulse Rate 131 H 131 H Pulse Rate [ Anterior Bilateral Throughout] Pulse Rate [ Apical] Pulse Rate [ From Monitor] Pulse Rate [ Left Dorsalis Pedis] Pulse Rate [ Left Radial] Pulse Rate [ Right Dorsalis Pedis] Pulse Rate [ Right Radial] Respiratory 18 21 Rate Respiratory Rate [Anterior Bilateral Throughout] Blood Pressure 99/62 102/66 O2 Sat by Pulse 98 98 Oximetry O2 Sat by Pulse 98 Oximetry [ Assessment] 02/11/17 02/11/17 02/11/17 03:30 04:00 04:15 Temperature 98.9 F Pulse Rate 133 H 130 H 134 H Pulse Rate [ Anterior Bilateral Throughout] Pulse Rate [ 133 H Apical] Pulse Rate [ 133 H From Monitor] Pulse Rate [ 133 H Left Dorsalis Pedis] Pulse Rate [ 133 H Left Radial] Pulse Rate [ 133 H Right Dorsalis Pedis] Pulse Rate [ 133 H Right Radial] Respiratory 23 20 Rate Respiratory Rate [Anterior Bilateral Throughout] Blood Pressure 101/68 103/70 101/68 O2 Sat by Pulse 98 98 98 Oximetry O2 Sat by Pulse Oximetry [ Assessment] 02/11/17 02/11/17 02/11/17 04:31 05:00 05:30 Temperature Pulse Rate 140 H 133 H 138 H Pulse Rate [ Anterior Bilateral Throughout] Pulse Rate [ Apical] Pulse Rate [ From Monitor] Pulse Rate [ Left Dorsalis Pedis] Pulse Rate [ Left Radial] Pulse Rate [ Right Dorsalis Pedis] Pulse Rate [ Right Radial] Respiratory 26 H 22 24 Rate Respiratory Rate [Anterior Bilateral Throughout] Blood Pressure 103/70 126/84 135/92 O2 Sat by Pulse 96 97 97 Oximetry O2 Sat by Pulse Oximetry [ Assessment] 02/11/17 02/11/17 02/11/17 06:01 06:31 07:01 Temperature Pulse Rate 133 H 135 H 135 H Pulse Rate [ Anterior Bilateral Throughout] Pulse Rate [ Apical] Pulse Rate [ From Monitor] Pulse Rate [ Left Dorsalis Pedis] Pulse Rate [ Left Radial] Pulse Rate [ Right Dorsalis Pedis] Pulse Rate [ Right Radial] Respiratory 20 21 21 Rate Respiratory Rate [Anterior Bilateral Throughout] Blood Pressure 132/81 110/68 118/67 O2 Sat by Pulse 98 97 98 Oximetry O2 Sat by Pulse Oximetry [ Assessment] 02/11/17 02/11/17 02/11/17 07:30 07:43 07:50 Temperature Pulse Rate 130 H Pulse Rate [ 138 H Anterior Bilateral Throughout] Pulse Rate [ Apical] Pulse Rate [ From Monitor] Pulse Rate [ Left Dorsalis Pedis] Pulse Rate [ Left Radial] Pulse Rate [ Right Dorsalis Pedis] Pulse Rate [ Right Radial] Respiratory 24 Rate Respiratory 22 Rate [Anterior Bilateral Throughout] Blood Pressure 119/76 O2 Sat by Pulse 98 Oximetry O2 Sat by Pulse 98 Oximetry [ Assessment] 02/11/17 02/11/17 02/11/17 07:53 08:00 08:01 Temperature 97.9 F Pulse Rate 134 H 136 H Pulse Rate [ 139 H Anterior Bilateral Throughout] Pulse Rate [ Apical] Pulse Rate [ From Monitor] Pulse Rate [ Left Dorsalis Pedis] Pulse Rate [ Left Radial] Pulse Rate [ Right Dorsalis Pedis] Pulse Rate [ Right Radial] Respiratory 20 Rate Respiratory 22 Rate [Anterior Bilateral Throughout] Blood Pressure 122/77 122/77 O2 Sat by Pulse 98 97 Oximetry O2 Sat by Pulse Oximetry [ Assessment] 02/11/17 10:20 Temperature Pulse Rate 138 H Pulse Rate [ Anterior Bilateral Throughout] Pulse Rate [ Apical] Pulse Rate [ From Monitor] Pulse Rate [ Left Dorsalis Pedis] Pulse Rate [ Left Radial] Pulse Rate [ Right Dorsalis Pedis] Pulse Rate [ Right Radial] Respiratory 28 H Rate Respiratory Rate [Anterior Bilateral Throughout] Blood Pressure 119/67 O2 Sat by Pulse 99 Oximetry O2 Sat by Pulse Oximetry [ Assessment] General appearance: Present: no acute distress, well-nourished - EENT Eyes: PERRL, EOM intact ENT: hearing intact, clear oral mucosa Ears: bilateral: normal - Neck Neck: supple, normal ROM - Respiratory Respiratory effort: normal Respiratory: bilateral: CTA - Breasts Breasts: normal - Cardiovascular Rhythm: regular Heart Sounds: Present: S1 & S2. Absent: gallop, rub Extremities: no ischemia, pulses intact, No edema, normal color, Full ROM - Gastrointestinal General gastrointestinal: Present: soft, non-tender, non-distended, normal bowel sounds - Genitourinary Female genitourinary: normal - Integumentary Integumentary: clear, warm, dry - Musculoskeletal Musculoskeletal: 1, strength equal bilaterally - Psychiatric Psychiatric: other (Unresponsive) - Labs CBC & Chem 7: 02/05/17 09:59 02/11/17 04:08 Labs: Abnormal lab results 02/10/17 02/10/17 02/10/17 Range/Units 11:55 17:42 23:43 Sodium (137-145) mmol/L BUN (7-17) mg/dL Creatinine (0.7-1.2) mg/dL Glucose (65-100) mg/dL POC Glucose 146 H 132 H 130 H (70-105) 02/11/17 02/11/17 Range/Units 04:08 05:34 Sodium 136 L (137-145) mmol/L BUN 65 H (7-17) mg/dL Creatinine 1.7 H (0.7-1.2) mg/dL Glucose 105 H (65-100) mg/dL POC Glucose 113 H (70-105)
--- NOTE | 2017-02-11 12:37 | Progress Note ---
Assessment and Plan Acute Hypoxemic Respiratory Failure (now with exacerbation and back on MVS) Hypertension (unable to receive p.o. meds) Atrial Fibrillation with RVR s/p tracheostomy Acute encephalopathy s/p CVA Oropharyngeal dysphagia Enterococcal bacteremia sepsis syndrome Sacral Decubitus Ulcer (s/p surgical debridement) Anemia Obesity JUANITA now on hemodialysis Enteric Fistula - continue to hold tube feeds due to continued intolerance; continue reglan at 10mg IV q8h - IR consulted for G-J tube (not a good candidate for G-J Tube per IR) - Pleural fluid cultures negative - unfortunately not a good candidate for a VATS procedure - appreciate surgery input - continue fentanyl patch for pain issues especially s/p debridement - continue wound care per WCT and RN's (she is s/p surgical debridement) - continue anti-infectives per ID recs (az now) - prn CRP & lactate levels if clinically indicated (Follow WBC also) - keep on with daily PSV trials and / or T-piece as tolerated - continue TPN administration - continue scopolamine for secretion control - continue to wean FiO2 for sats > 94% - continue bronchodilators and pulmonary toilet - VAP bundle addressed - continue prn IV metoprolol (5mg IV q6h) - continue metoprolol and amlodipine (hold for hypotension) - continue to follow electrolytes and correct as necessary - continue GI & VTE prophylaxis - Continue flu & pneumovax per protocol - ethics consult placed and pending .....she remains critically ill on life sustaining interventions including MVS and at risk for further deterioration including ....35' CCT ....care plan discussed at length during team rounds ...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 and this has intermittently been conveyed to family Subjective Date of service: 02/11/17 Principal diagnosis: Acute resp failure on MVS; S/P Acute CVA; Acute Encephalopathy; JUANITA Interval history: Patient is seen today for: Acute resp failure on MVS; S/P Acute CVA; Acute Encephalopathy; JUANITA Seen and examined at bedside; 24hour events reviewed; nursing and respiratory care staff consulted; no adverse overnight events reported to me; remains on MVS ; no new issues; remains on TPN; not tolerating enteral feeds; remains on dialysis; AMS is persistent; not weaning well Objective Vital Signs - 12hr 02/11/17 02/11/17 02/11/17 01:00 01:30 02:00 Temperature Pulse Rate 124 H 130 H 134 H Pulse Rate [ Anterior Bilateral Throughout] Pulse Rate [ Apical] Pulse Rate [ From Monitor] Pulse Rate [ Left Dorsalis Pedis] Pulse Rate [ Left Radial] Pulse Rate [ Right Dorsalis Pedis] Pulse Rate [ Right Radial] Respiratory 20 21 21 Rate Respiratory Rate [Anterior Bilateral Throughout] Blood Pressure 89/56 102/61 106/71 O2 Sat by Pulse 99 99 98 Oximetry O2 Sat by Pulse Oximetry [ Assessment] 02/11/17 02/11/17 02/11/17 02:30 03:00 03:20 Temperature Pulse Rate 131 H 131 H Pulse Rate [ Anterior Bilateral Throughout] Pulse Rate [ Apical] Pulse Rate [ From Monitor] Pulse Rate [ Left Dorsalis Pedis] Pulse Rate [ Left Radial] Pulse Rate [ Right Dorsalis Pedis] Pulse Rate [ Right Radial] Respiratory 18 21 Rate Respiratory Rate [Anterior Bilateral Throughout] Blood Pressure 99/62 102/66 O2 Sat by Pulse 98 98 Oximetry O2 Sat by Pulse 98 Oximetry [ Assessment] 02/11/17 02/11/17 02/11/17 03:30 04:00 04:15 Temperature 98.9 F Pulse Rate 133 H 130 H 134 H Pulse Rate [ Anterior Bilateral Throughout] Pulse Rate [ 133 H Apical] Pulse Rate [ 133 H From Monitor] Pulse Rate [ 133 H Left Dorsalis Pedis] Pulse Rate [ 133 H Left Radial] Pulse Rate [ 133 H Right Dorsalis Pedis] Pulse Rate [ 133 H Right Radial] Respiratory 23 20 Rate Respiratory Rate [Anterior Bilateral Throughout] Blood Pressure 101/68 103/70 101/68 O2 Sat by Pulse 98 98 98 Oximetry O2 Sat by Pulse Oximetry [ Assessment] 02/11/17 02/11/17 02/11/17 04:31 05:00 05:30 Temperature Pulse Rate 140 H 133 H 138 H Pulse Rate [ Anterior Bilateral Throughout] Pulse Rate [ Apical] Pulse Rate [ From Monitor] Pulse Rate [ Left Dorsalis Pedis] Pulse Rate [ Left Radial] Pulse Rate [ Right Dorsalis Pedis] Pulse Rate [ Right Radial] Respiratory 26 H 22 24 Rate Respiratory Rate [Anterior Bilateral Throughout] Blood Pressure 103/70 126/84 135/92 O2 Sat by Pulse 96 97 97 Oximetry O2 Sat by Pulse Oximetry [ Assessment] 02/11/17 02/11/17 02/11/17 06:01 06:31 07:01 Temperature Pulse Rate 133 H 135 H 135 H Pulse Rate [ Anterior Bilateral Throughout] Pulse Rate [ Apical] Pulse Rate [ From Monitor] Pulse Rate [ Left Dorsalis Pedis] Pulse Rate [ Left Radial] Pulse Rate [ Right Dorsalis Pedis] Pulse Rate [ Right Radial] Respiratory 20 21 21 Rate Respiratory Rate [Anterior Bilateral Throughout] Blood Pressure 132/81 110/68 118/67 O2 Sat by Pulse 98 97 98 Oximetry O2 Sat by Pulse Oximetry [ Assessment] 02/11/17 02/11/17 02/11/17 07:30 07:43 07:50 Temperature Pulse Rate 130 H Pulse Rate [ 138 H Anterior Bilateral Throughout] Pulse Rate [ Apical] Pulse Rate [ From Monitor] Pulse Rate [ Left Dorsalis Pedis] Pulse Rate [ Left Radial] Pulse Rate [ Right Dorsalis Pedis] Pulse Rate [ Right Radial] Respiratory 24 Rate Respiratory 22 Rate [Anterior Bilateral Throughout] Blood Pressure 119/76 O2 Sat by Pulse 98 Oximetry O2 Sat by Pulse 98 Oximetry [ Assessment] 02/11/17 02/11/17 02/11/17 07:53 08:00 08:01 Temperature 97.9 F Pulse Rate 134 H 136 H Pulse Rate [ 139 H Anterior Bilateral Throughout] Pulse Rate [ Apical] Pulse Rate [ From Monitor] Pulse Rate [ Left Dorsalis Pedis] Pulse Rate [ Left Radial] Pulse Rate [ Right Dorsalis Pedis] Pulse Rate [ Right Radial] Respiratory 20 Rate Respiratory 22 Rate [Anterior Bilateral Throughout] Blood Pressure 122/77 122/77 O2 Sat by Pulse 98 97 Oximetry O2 Sat by Pulse Oximetry [ Assessment] 02/11/17 02/11/17 02/11/17 08:31 09:01 09:31 Temperature Pulse Rate 136 H 130 H 138 H Pulse Rate [ Anterior Bilateral Throughout] Pulse Rate [ Apical] Pulse Rate [ From Monitor] Pulse Rate [ Left Dorsalis Pedis] Pulse Rate [ Left Radial] Pulse Rate [ Right Dorsalis Pedis] Pulse Rate [ Right Radial] Respiratory 16 19 17 Rate Respiratory Rate [Anterior Bilateral Throughout] Blood Pressure 114/81 121/70 114/70 O2 Sat by Pulse 100 97 97 Oximetry O2 Sat by Pulse Oximetry [ Assessment] 02/11/17 02/11/17 02/11/17 10:00 10:20 10:31 Temperature Pulse Rate 133 H 138 H 132 H Pulse Rate [ Anterior Bilateral Throughout] Pulse Rate [ Apical] Pulse Rate [ From Monitor] Pulse Rate [ Left Dorsalis Pedis] Pulse Rate [ Left Radial] Pulse Rate [ Right Dorsalis Pedis] Pulse Rate [ Right Radial] Respiratory 16 28 H 30 H Rate Respiratory Rate [Anterior Bilateral Throughout] Blood Pressure 132/80 119/67 119/67 O2 Sat by Pulse 97 99 100 Oximetry O2 Sat by Pulse Oximetry [ Assessment] 02/11/17 02/11/17 11:01 11:31 Temperature Pulse Rate 135 H Pulse Rate [ Anterior Bilateral Throughout] Pulse Rate [ Apical] Pulse Rate [ From Monitor] Pulse Rate [ Left Dorsalis Pedis] Pulse Rate [ Left Radial] Pulse Rate [ Right Dorsalis Pedis] Pulse Rate [ Right Radial] Respiratory 18 Rate Respiratory Rate [Anterior Bilateral Throughout] Blood Pressure 140/84 116/81 O2 Sat by Pulse 99 99 Oximetry O2 Sat by Pulse Oximetry [ Assessment] Constitutional: appears uncomfortable, other (not tracking) Eyes: non-icteric, other (tracheostomy tube in midline of neck) ENT: oropharynx moist, oropharyngeal exudate pre Neck: supple, no lymphadenopathy, no JVD, other (no thyromegaly) Effort: mildly labored Ascultation: Bilateral: rhonchi (and referred upper airway sounds) Percussion: Right: dull (base), Bilateral: not dull Cardiovascular: regular rate and rhythm, other (no rubs / murmurs) Gastrointestinal: hypoactive bowel sounds, soft, non-tender, non-distended, other (RLQ & LUQ stomas with colostomy bags) Integumentary: decubitus ulcer (sacral; stage 4 s/p surgical debridement), other (no rash; no cellulitis; poor turgor) Extremities: no cyanosis, pulses normal, no ischemia or petechiae, edema (1+ bilaterally) Neurologic: pupils equal and round, unable to assess, other (encephalopathic) Psychiatric: other (unable to assess) CBC and BMP: 02/05/17 09:59 02/12/17 06:19 ABG, PT/INR, D-dimer: ABG POC ABG pH 7.436 (7.35-7.45) 01/20/17 12:17 ABG pH 7.450 pH Units (7.350-7.450) 12/05/16 Unknown POC ABG pCO2 35.3 (35-45) 01/20/17 12:17 ABG pCO2 29.6 mm Hg 12/05/16 Unknown POC ABG pO2 70 (80-105) L 01/20/17 12:17 ABG pO2 75.2 mm Hg (80.0-90.0) L 12/05/16 Unknown POC ABG HCO3 23.8 01/20/17 12:17 POC ABG Total CO2 25 01/20/17 12:17 POC ABG O2 Sat 94 01/20/17 12:17 ABG O2 Saturation 96.8 % (95.0-99.0) 12/05/16 Unknown PT/INR, D-dimer PT 15.4 Sec. (12.2-14.9) H 01/13/17 15:50 INR 1.16 (0.87-1.13) H 01/13/17 15:50 Abnormal lab findings: Abnormal Labs 09/03/16 09/03/16 09/03/16 00:03 00:10 00:10 WBC 13.9 H RBC 5.95 H Hgb Hct 44.0 H MCV 74 L MCH 22 L MCHC RDW 17.5 H Plt Count Lymph % (Auto) [place] % (Auto) Lymph # [place] # Baso # Seg Neutrophils % Seg Neuts % (Manual) Lymphocytes % (Manual) 54.0 H Monocytes % (Manual) Eosinophils % (Manual) Basophils % (Manual) Nucleated RBC % Seg Neutrophils # Seg Neutrophils # Man Lymphocytes # (Manual) 7.5 H Monocytes # (Manual) Eosinophils # (Manual) Basophils # (Manual) PT INR Fibrinogen dRVVT Confirm Interp Factor V Activity POC ABG pH POC ABG pCO2 POC ABG pO2 ABG pO2 ABG HCO3 ABG Base Excess ABG Hemoglobin Oxyhemoglobin Sodium Potassium 2.8 L* Chloride Carbon Dioxide 21 L BUN Creatinine 1.7 H Glucose 159 H POC Glucose 177 H Lactic Acid Calcium Phosphorus Magnesium Direct Bilirubin AST ALT Alkaline Phosphatase Lactate Dehydrogenase Troponin T C-Reactive Protein Total Protein Albumin Prealbumin Triglycerides Cholesterol LDL Cholesterol Direct HDL Cholesterol PTH Intact Urine pH Urine WBC (Auto) Urine Creatinine Urine Total Protein Fluid Total Protein Vancomycin Trough Rheumatoid Factor Complement C4 Miscellaneous Test Crossmatch 09/03/16 09/03/16 09/03/16 12:12 15:07 16:20 WBC RBC Hgb Hct MCV MCH MCHC RDW Plt Count Lymph % (Auto) [place] % (Auto) Lymph # [place] # Baso # Seg Neutrophils % Seg Neuts % (Manual) Lymphocytes % (Manual) Monocytes % (Manual) Eosinophils % (Manual) Basophils % (Manual) Nucleated RBC % Seg Neutrophils # Seg Neutrophils # Man Lymphocytes # (Manual) Monocytes # (Manual) Eosinophils # (Manual) Basophils # (Manual) PT INR Fibrinogen dRVVT Confirm Interp Factor V Activity POC ABG pH 7.452 H POC ABG pCO2 POC ABG pO2 ABG pO2 ABG HCO3 ABG Base Excess ABG Hemoglobin Oxyhemoglobin Sodium Potassium Chloride Carbon Dioxide BUN Creatinine Glucose POC Glucose 178 H Lactic Acid Calcium Phosphorus 2.20 L Magnesium 1.60 L Direct Bilirubin AST ALT Alkaline Phosphatase Lactate Dehydrogenase Troponin T C-Reactive Protein Total Protein Albumin Prealbumin Triglycerides Cholesterol LDL Cholesterol Direct HDL Cholesterol PTH Intact Urine pH Urine WBC (Auto) Urine Creatinine Urine Total Protein Fluid Total Protein Vancomycin Trough Rheumatoid Factor Complement C4 Miscellaneous Test Crossmatch 09/03/16 09/03/16 09/03/16 17:57 17:58 23:50 WBC RBC Hgb Hct MCV MCH MCHC RDW Plt Count Lymph % (Auto) [place] % (Auto) Lymph # [place] # Baso # Seg Neutrophils % Seg Neuts % (Manual) Lymphocytes % (Manual) Monocytes % (Manual) Eosinophils % (Manual) Basophils % (Manual) Nucleated RBC % Seg Neutrophils # Seg Neutrophils # Man Lymphocytes # (Manual) Monocytes # (Manual) Eosinophils # (Manual) Basophils # (Manual) PT INR Fibrinogen dRVVT Confirm Interp Factor V Activity POC ABG pH POC ABG pCO2 POC ABG pO2 ABG pO2 ABG HCO3 ABG Base Excess ABG Hemoglobin Oxyhemoglobin Sodium Potassium Chloride Carbon Dioxide BUN Creatinine Glucose POC Glucose 162 H 145 H Lactic Acid Calcium Phosphorus 2.30 L Magnesium Direct Bilirubin AST ALT Alkaline Phosphatase Lactate Dehydrogenase Troponin T C-Reactive Protein Total Protein Albumin Prealbumin Triglycerides Cholesterol LDL Cholesterol Direct HDL Cholesterol PTH Intact Urine pH Urine WBC (Auto) Urine Creatinine Urine Total Protein Fluid Total Protein Vancomycin Trough Rheumatoid Factor Complement C4 Miscellaneous Test Crossmatch 09/04/16 09/04/16 09/04/16 03:31 03:31 05:42 WBC RBC Hgb 9.7 L D Hct MCV 72 L MCH 23 L MCHC RDW 17.5 H Plt Count Lymph % (Auto) 11.1 L [place] % (Auto) Lymph # [place] # Baso # Seg Neutrophils % 84.3 H Seg Neuts % (Manual) Lymphocytes % (Manual) Monocytes % (Manual) Eosinophils % (Manual) Basophils % (Manual) Nucleated RBC % Seg Neutrophils # 8.9 H Seg Neutrophils # Man Lymphocytes # (Manual) Monocytes # (Manual) Eosinophils # (Manual) Basophils # (Manual) PT INR Fibrinogen dRVVT Confirm Interp Factor V Activity POC ABG pH POC ABG pCO2 POC ABG pO2 ABG pO2 ABG HCO3 ABG Base Excess ABG Hemoglobin Oxyhemoglobin Sodium 135 L Potassium 2.9 L* Chloride 97.2 L Carbon Dioxide 19 L BUN Creatinine 1.7 H Glucose 170 H POC Glucose 152 H Lactic Acid Calcium Phosphorus Magnesium Direct Bilirubin AST ALT Alkaline Phosphatase Lactate Dehydrogenase Troponin T C-Reactive Protein Total Protein Albumin Prealbumin Triglycerides 160 H Cholesterol LDL Cholesterol Direct HDL Cholesterol 31 L PTH Intact Urine pH Urine WBC (Auto) Urine Creatinine Urine Total Protein Fluid Total Protein Vancomycin Trough Rheumatoid Factor Complement C4 Miscellaneous Test Crossmatch 09/04/16 09/04/16 09/04/16 11:34 17:46 23:29 WBC RBC Hgb Hct MCV MCH MCHC RDW Plt Count Lymph % (Auto) [place] % (Auto) Lymph # [place] # Baso # Seg Neutrophils % Seg Neuts % (Manual) Lymphocytes % (Manual) Monocytes % (Manual) Eosinophils % (Manual) Basophils % (Manual) Nucleated RBC % Seg Neutrophils # Seg Neutrophils # Man Lymphocytes # (Manual) Monocytes # (Manual) Eosinophils # (Manual) Basophils # (Manual) PT INR Fibrinogen dRVVT Confirm Interp Factor V Activity POC ABG pH POC ABG pCO2 POC ABG pO2 ABG pO2 ABG HCO3 ABG Base Excess ABG Hemoglobin Oxyhemoglobin Sodium Potassium Chloride Carbon Dioxide BUN Creatinine Glucose POC Glucose 165 H 210 H 139 H Lactic Acid Calcium Phosphorus Magnesium Direct Bilirubin AST ALT Alkaline Phosphatase Lactate Dehydrogenase Troponin T C-Reactive Protein Total Protein Albumin Prealbumin Triglycerides Cholesterol LDL Cholesterol Direct HDL Cholesterol PTH Intact Urine pH Urine WBC (Auto) Urine Creatinine Urine Total Protein Fluid Total Protein Vancomycin Trough Rheumatoid Factor Complement C4 Miscellaneous Test Crossmatch 09/05/16 09/05/16 09/05/16 04:05 04:05 05:38 WBC RBC Hgb Hct MCV 76 L D MCH 23 L MCHC RDW 17.8 H Plt Count Lymph % (Auto) [place] % (Auto) Lymph # [place] # Baso # Seg Neutrophils % Seg Neuts % (Manual) Lymphocytes % (Manual) Monocytes % (Manual) Eosinophils % (Manual) Basophils % (Manual) Nucleated RBC % Seg Neutrophils # Seg Neutrophils # Man Lymphocytes # (Manual) Monocytes # (Manual) Eosinophils # (Manual) Basophils # (Manual) PT INR Fibrinogen dRVVT Confirm Interp Factor V Activity POC ABG pH POC ABG pCO2 POC ABG pO2 ABG pO2 ABG HCO3 ABG Base Excess ABG Hemoglobin Oxyhemoglobin Sodium 134 L Potassium Chloride Carbon Dioxide 18 L BUN Creatinine 1.8 H Glucose 192 H POC Glucose 175 H Lactic Acid Calcium Phosphorus Magnesium Direct Bilirubin AST ALT Alkaline Phosphatase Lactate Dehydrogenase Troponin T C-Reactive Protein Total Protein Albumin Prealbumin Triglycerides Cholesterol LDL Cholesterol Direct HDL Cholesterol PTH Intact Urine pH Urine WBC (Auto) Urine Creatinine Urine Total Protein Fluid Total Protein Vancomycin Trough Rheumatoid Factor Complement C4 Miscellaneous Test Crossmatch 09/05/16 09/05/16 09/05/16 11:38 17:48 23:22 WBC RBC Hgb Hct MCV MCH MCHC RDW Plt Count Lymph % (Auto) [place] % (Auto) Lymph # [place] # Baso # Seg Neutrophils % Seg Neuts % (Manual) Lymphocytes % (Manual) Monocytes % (Manual) Eosinophils % (Manual) Basophils % (Manual) Nucleated RBC % Seg Neutrophils # Seg Neutrophils # Man Lymphocytes # (Manual) Monocytes # (Manual) Eosinophils # (Manual) Basophils # (Manual) PT INR Fibrinogen dRVVT Confirm Interp Factor V Activity POC ABG pH POC ABG pCO2 POC ABG pO2 ABG pO2 ABG HCO3 ABG Base Excess ABG Hemoglobin Oxyhemoglobin Sodium Potassium Chloride Carbon Dioxide BUN Creatinine Glucose POC Glucose 164 H 186 H 195 H Lactic Acid Calcium Phosphorus Magnesium Direct Bilirubin AST ALT Alkaline Phosphatase Lactate Dehydrogenase Troponin T C-Reactive Protein Total Protein Albumin Prealbumin Triglycerides Cholesterol LDL Cholesterol Direct HDL Cholesterol PTH Intact Urine pH Urine WBC (Auto) Urine Creatinine Urine Total Protein Fluid Total Protein Vancomycin Trough Rheumatoid Factor Complement C4 Miscellaneous Test Crossmatch 09/06/16 09/06/16 09/06/16 04:12 05:59 07:32 WBC RBC Hgb Hct MCV MCH MCHC RDW Plt Count Lymph % (Auto) [place] % (Auto) Lymph # [place] # Baso # Seg Neutrophils % Seg Neuts % (Manual) Lymphocytes % (Manual) Monocytes % (Manual) Eosinophils % (Manual) Basophils % (Manual) Nucleated RBC % Seg Neutrophils # Seg Neutrophils # Man Lymphocytes # (Manual) Monocytes # (Manual) Eosinophils # (Manual) Basophils # (Manual) PT INR Fibrinogen dRVVT Confirm Interp Factor V Activity POC ABG pH 7.514 H POC ABG pCO2 29.1 L POC ABG pO2 72 L ABG pO2 ABG HCO3 ABG Base Excess ABG Hemoglobin Oxyhemoglobin Sodium 133 L Potassium 3.4 L Chloride 94.9 L Carbon Dioxide 19 L BUN 30 H Creatinine 2.1 H Glucose 139 H POC Glucose 146 H Lactic Acid Calcium Phosphorus Magnesium Direct Bilirubin AST ALT Alkaline Phosphatase Lactate Dehydrogenase Troponin T C-Reactive Protein Total Protein Albumin Prealbumin Triglycerides Cholesterol LDL Cholesterol Direct HDL Cholesterol PTH Intact Urine pH Urine WBC (Auto) Urine Creatinine Urine Total Protein Fluid Total Protein Vancomycin Trough Rheumatoid Factor Complement C4 Miscellaneous Test Crossmatch 09/06/16 09/06/16 09/06/16 11:57 17:58 19:02 WBC RBC Hgb Hct MCV MCH MCHC RDW Plt Count Lymph % (Auto) [place] % (Auto) Lymph # [place] # Baso # Seg Neutrophils % Seg Neuts % (Manual) Lymphocytes % (Manual) Monocytes % (Manual) Eosinophils % (Manual) Basophils % (Manual) Nucleated RBC % Seg Neutrophils # Seg Neutrophils # Man Lymphocytes # (Manual) Monocytes # (Manual) Eosinophils # (Manual) Basophils # (Manual) PT INR Fibrinogen dRVVT Confirm Interp Factor V Activity POC ABG pH 7.465 H POC ABG pCO2 32.0 L POC ABG pO2 ABG pO2 ABG HCO3 ABG Base Excess ABG Hemoglobin Oxyhemoglobin Sodium Potassium Chloride Carbon Dioxide BUN Creatinine Glucose POC Glucose 165 H 160 H Lactic Acid Calcium Phosphorus Magnesium Direct Bilirubin AST ALT Alkaline Phosphatase Lactate Dehydrogenase Troponin T C-Reactive Protein Total Protein Albumin Prealbumin Triglycerides Cholesterol LDL Cholesterol Direct HDL Cholesterol PTH Intact Urine pH Urine WBC (Auto) Urine Creatinine Urine Total Protein Fluid Total Protein Vancomycin Trough Rheumatoid Factor Complement C4 Miscellaneous Test Crossmatch 09/06/16 09/07/16 09/07/16 23:45 02:47 02:47 WBC RBC Hgb Hct MCV MCH MCHC RDW Plt Count Lymph % (Auto) [place] % (Auto) Lymph # [place] # Baso # Seg Neutrophils % Seg Neuts % (Manual) Lymphocytes % (Manual) Monocytes % (Manual) Eosinophils % (Manual) Basophils % (Manual) Nucleated RBC % Seg Neutrophils # Seg Neutrophils # Man Lymphocytes # (Manual) Monocytes # (Manual) Eosinophils # (Manual) Basophils # (Manual) PT INR Fibrinogen dRVVT Confirm Interp Factor V Activity POC ABG pH POC ABG pCO2 POC ABG pO2 ABG pO2 ABG HCO3 ABG Base Excess ABG Hemoglobin Oxyhemoglobin Sodium Potassium Chloride Carbon Dioxide BUN Creatinine Glucose POC Glucose 204 H Lactic Acid Calcium Phosphorus Magnesium Direct Bilirubin AST ALT Alkaline Phosphatase Lactate Dehydrogenase Troponin T C-Reactive Protein Total Protein Albumin Prealbumin Triglycerides Cholesterol LDL Cholesterol Direct HDL Cholesterol PTH Intact Urine pH Urine WBC (Auto) 68.0 H Urine Creatinine 106.1 H Urine Total Protein Fluid Total Protein Vancomycin Trough Rheumatoid Factor Complement C4 Miscellaneous Test Crossmatch 09/07/16 09/07/16 09/07/16 04:50 06:19 06:39 WBC RBC Hgb Hct MCV MCH MCHC RDW Plt Count Lymph % (Auto) [place] % (Auto) Lymph # [place] # Baso # Seg Neutrophils % Seg Neuts % (Manual) Lymphocytes % (Manual) Monocytes % (Manual) Eosinophils % (Manual) Basophils % (Manual) Nucleated RBC % Seg Neutrophils # Seg Neutrophils # Man Lymphocytes # (Manual) Monocytes # (Manual) Eosinophils # (Manual) Basophils # (Manual) PT INR Fibrinogen dRVVT Confirm Interp Factor V Activity POC ABG pH 7.457 H POC ABG pCO2 32.1 L POC ABG pO2 76 L ABG pO2 ABG HCO3 ABG Base Excess ABG Hemoglobin Oxyhemoglobin Sodium 132 L Potassium Chloride 94.7 L Carbon Dioxide BUN 53 H Creatinine 2.9 H Glucose 151 H POC Glucose 149 H Lactic Acid Calcium Phosphorus Magnesium Direct Bilirubin AST ALT Alkaline Phosphatase Lactate Dehydrogenase Troponin T C-Reactive Protein Total Protein Albumin Prealbumin Triglycerides Cholesterol LDL Cholesterol Direct HDL Cholesterol PTH Intact Urine pH Urine WBC (Auto) Urine Creatinine Urine Total Protein Fluid Total Protein Vancomycin Trough Rheumatoid Factor Complement C4 Miscellaneous Test Crossmatch 09/07/16 09/07/16 09/07/16 09:20 11:43 11:43 WBC 19.4 H RBC Hgb 8.3 L Hct 26.4 L D MCV 72 L D MCH 22 L MCHC RDW 17.9 H Plt Count Lymph % (Auto) 8.5 L [place] % (Auto) Lymph # [place] # 1.0 H Baso # Seg Neutrophils % 85.8 H Seg Neuts % (Manual) Lymphocytes % (Manual) Monocytes % (Manual) Eosinophils % (Manual) Basophils % (Manual) Nucleated RBC % Seg Neutrophils # 16.6 H Seg Neutrophils # Man Lymphocytes # (Manual) Monocytes # (Manual) Eosinophils # (Manual) Basophils # (Manual) PT INR Fibrinogen dRVVT Confirm Interp Factor V Activity POC ABG pH POC ABG pCO2 POC ABG pO2 ABG pO2 ABG HCO3 ABG Base Excess ABG Hemoglobin Oxyhemoglobin Sodium 134 L Potassium Chloride 97.2 L Carbon Dioxide 20 L BUN 58 H Creatinine 2.9 H Glucose 147 H POC Glucose Lactic Acid Calcium Phosphorus 2.40 L Magnesium 2.40 H Direct Bilirubin AST ALT Alkaline Phosphatase Lactate Dehydrogenase Troponin T C-Reactive Protein Total Protein 5.8 L Albumin 2.2 L Prealbumin Triglycerides Cholesterol LDL Cholesterol Direct HDL Cholesterol PTH Intact Urine pH Urine WBC (Auto) Urine Creatinine Urine Total Protein Fluid Total Protein Vancomycin Trough Rheumatoid Factor Complement C4 58 H Miscellaneous Test Crossmatch 09/07/16 09/07/16 09/07/16 11:50 16:00 17:31 WBC RBC Hgb Hct MCV MCH MCHC RDW Plt Count Lymph % (Auto) [place] % (Auto) Lymph # [place] # Baso # Seg Neutrophils % Seg Neuts % (Manual) Lymphocytes % (Manual) Monocytes % (Manual) Eosinophils % (Manual) Basophils % (Manual) Nucleated RBC % Seg Neutrophils # Seg Neutrophils # Man Lymphocytes # (Manual) Monocytes # (Manual) Eosinophils # (Manual) Basophils # (Manual) PT INR Fibrinogen dRVVT Confirm Interp Factor V Activity POC ABG pH POC ABG pCO2 POC ABG pO2 158 H ABG pO2 ABG HCO3 ABG Base Excess ABG Hemoglobin Oxyhemoglobin Sodium Potassium Chloride Carbon Dioxide BUN Creatinine Glucose POC Glucose 175 H Lactic Acid Calcium Phosphorus Magnesium Direct Bilirubin AST ALT Alkaline Phosphatase Lactate Dehydrogenase Troponin T C-Reactive Protein Total Protein Albumin Prealbumin Triglycerides Cholesterol LDL Cholesterol Direct HDL Cholesterol PTH Intact Urine pH Urine WBC (Auto) Urine Creatinine 66.3 H Urine Total Protein Fluid Total Protein Vancomycin Trough Rheumatoid Factor Complement C4 Miscellaneous Test Crossmatch 09/07/16 09/08/16 09/08/16 23:50 05:46 06:18 WBC 17.8 H RBC 3.58 L Hgb 8.1 L Hct 25.5 L MCV 71 L MCH 23 L MCHC RDW 18.4 H Plt Count Lymph % (Auto) [place] % (Auto) Lymph # [place] # Baso # Seg Neutrophils % Seg Neuts % (Manual) 92.0 H Lymphocytes % (Manual) 6.0 L Monocytes % (Manual) Eosinophils % (Manual) Basophils % (Manual) Nucleated RBC % Seg Neutrophils # Seg Neutrophils # Man 16.4 H Lymphocytes # (Manual) 1.1 L Monocytes # (Manual) Eosinophils # (Manual) Basophils # (Manual) PT INR Fibrinogen dRVVT Confirm Interp Factor V Activity POC ABG pH POC ABG pCO2 34.3 L POC ABG pO2 71 L ABG pO2 ABG HCO3 ABG Base Excess ABG Hemoglobin Oxyhemoglobin Sodium Potassium Chloride Carbon Dioxide BUN Creatinine Glucose POC Glucose 216 H Lactic Acid Calcium Phosphorus Magnesium Direct Bilirubin AST ALT Alkaline Phosphatase Lactate Dehydrogenase Troponin T C-Reactive Protein Total Protein Albumin Prealbumin Triglycerides Cholesterol LDL Cholesterol Direct HDL Cholesterol PTH Intact Urine pH Urine WBC (Auto) Urine Creatinine Urine Total Protein Fluid Total Protein Vancomycin Trough Rheumatoid Factor Complement C4 Miscellaneous Test Crossmatch 09/08/16 09/08/16 09/08/16 06:18 06:51 10:55 WBC RBC Hgb Hct MCV MCH MCHC RDW Plt Count Lymph % (Auto) [place] % (Auto) Lymph # [place] # Baso # Seg Neutrophils % Seg Neuts % (Manual) Lymphocytes % (Manual) Monocytes % (Manual) Eosinophils % (Manual) Basophils % (Manual) Nucleated RBC % Seg Neutrophils # Seg Neutrophils # Man Lymphocytes # (Manual) Monocytes # (Manual) Eosinophils # (Manual) Basophils # (Manual) PT INR Fibrinogen dRVVT Confirm Interp Factor V Activity POC ABG pH POC ABG pCO2 POC ABG pO2 ABG pO2 ABG HCO3 ABG Base Excess ABG Hemoglobin Oxyhemoglobin Sodium 133 L Potassium Chloride 96.9 L Carbon Dioxide 20 L BUN 63 H Creatinine 2.7 H Glucose 195 H POC Glucose 204 H 169 H Lactic Acid Calcium Phosphorus Magnesium Direct Bilirubin AST ALT Alkaline Phosphatase Lactate Dehydrogenase Troponin T C-Reactive Protein Total Protein Albumin Prealbumin Triglycerides Cholesterol LDL Cholesterol Direct HDL Cholesterol PTH Intact Urine pH Urine WBC (Auto) Urine Creatinine Urine Total Protein Fluid Total Protein Vancomycin Trough Rheumatoid Factor Complement C4 Miscellaneous Test Crossmatch 09/08/16 09/08/16 09/08/16 11:48 11:48 11:48 WBC RBC Hgb Hct MCV MCH MCHC RDW Plt Count Lymph % (Auto) [place] % (Auto) Lymph # [place] # Baso # Seg Neutrophils % Seg Neuts % (Manual) Lymphocytes % (Manual) Monocytes % (Manual) Eosinophils % (Manual) Basophils % (Manual) Nucleated RBC % Seg Neutrophils # Seg Neutrophils # Man Lymphocytes # (Manual) Monocytes # (Manual) Eosinophils # (Manual) Basophils # (Manual) PT INR Fibrinogen 750 H dRVVT Confirm Interp Factor V Activity POC ABG pH POC ABG pCO2 POC ABG pO2 ABG pO2 ABG HCO3 ABG Base Excess ABG Hemoglobin Oxyhemoglobin Sodium Potassium Chloride Carbon Dioxide BUN Creatinine Glucose POC Glucose Lactic Acid Calcium Phosphorus Magnesium Direct Bilirubin AST ALT Alkaline Phosphatase Lactate Dehydrogenase Troponin T C-Reactive Protein 15.70 H Total Protein Albumin Prealbumin Triglycerides Cholesterol LDL Cholesterol Direct HDL Cholesterol PTH Intact Urine pH Urine WBC (Auto) Urine Creatinine Urine Total Protein Fluid Total Protein Vancomycin Trough Rheumatoid Factor 24 H Complement C4 Miscellaneous Test Crossmatch 09/08/16 09/08/16 09/09/16 15:35 18:25 00:24 WBC RBC Hgb Hct MCV MCH MCHC RDW Plt Count Lymph % (Auto) [place] % (Auto) Lymph # [place] # Baso # Seg Neutrophils % Seg Neuts % (Manual) Lymphocytes % (Manual) Monocytes % (Manual) Eosinophils % (Manual) Basophils % (Manual) Nucleated RBC % Seg Neutrophils # Seg Neutrophils # Man Lymphocytes # (Manual) Monocytes # (Manual) Eosinophils # (Manual) Basophils # (Manual) PT INR Fibrinogen dRVVT Confirm Interp Factor V Activity 182 H POC ABG pH POC ABG pCO2 POC ABG pO2 ABG pO2 ABG HCO3 ABG Base Excess ABG Hemoglobin Oxyhemoglobin Sodium Potassium Chloride Carbon Dioxide BUN Creatinine Glucose POC Glucose 184 H 216 H Lactic Acid Calcium Phosphorus Magnesium Direct Bilirubin AST ALT Alkaline Phosphatase Lactate Dehydrogenase Troponin T C-Reactive Protein Total Protein Albumin Prealbumin Triglycerides Cholesterol LDL Cholesterol Direct HDL Cholesterol PTH Intact Urine pH Urine WBC (Auto) Urine Creatinine Urine Total Protein Fluid Total Protein Vancomycin Trough Rheumatoid Factor Complement C4 Miscellaneous Test Crossmatch 09/09/16 09/09/16 09/09/16 03:00 03:00 04:04 WBC 27.9 H RBC Hgb 8.7 L Hct 28.1 L MCV 72 L MCH 22 L MCHC RDW 18.4 H Plt Count 485 H Lymph % (Auto) [place] % (Auto) Lymph # [place] # Baso # Seg Neutrophils % Seg Neuts % (Manual) 77.0 H Lymphocytes % (Manual) 9.0 L Monocytes % (Manual) Eosinophils % (Manual) Basophils % (Manual) Nucleated RBC % Seg Neutrophils # Seg Neutrophils # Man 21.5 H Lymphocytes # (Manual) Monocytes # (Manual) 2.0 H Eosinophils # (Manual) Basophils # (Manual) PT INR Fibrinogen dRVVT Confirm Interp Factor V Activity POC ABG pH POC ABG pCO2 POC ABG pO2 121 H ABG pO2 ABG HCO3 ABG Base Excess ABG Hemoglobin Oxyhemoglobin Sodium 135 L Potassium Chloride 96.3 L Carbon Dioxide 21 L BUN 83 H Creatinine 3.0 H Glucose 135 H POC Glucose Lactic Acid Calcium Phosphorus Magnesium Direct Bilirubin AST ALT Alkaline Phosphatase Lactate Dehydrogenase Troponin T C-Reactive Protein Total Protein Albumin Prealbumin Triglycerides Cholesterol LDL Cholesterol Direct HDL Cholesterol PTH Intact Urine pH Urine WBC (Auto) Urine Creatinine Urine Total Protein Fluid Total Protein Vancomycin Trough Rheumatoid Factor Complement C4 Miscellaneous Test Crossmatch 09/09/16 09/09/16 09/09/16 05:41 11:55 14:13 WBC RBC Hgb Hct MCV MCH MCHC RDW Plt Count Lymph % (Auto) [place] % (Auto) Lymph # [place] # Baso # Seg Neutrophils % Seg Neuts % (Manual) Lymphocytes % (Manual) Monocytes % (Manual) Eosinophils % (Manual) Basophils % (Manual) Nucleated RBC % Seg Neutrophils # Seg Neutrophils # Man Lymphocytes # (Manual) Monocytes # (Manual) Eosinophils # (Manual) Basophils # (Manual) PT INR Fibrinogen dRVVT Confirm Interp Factor V Activity POC ABG pH POC ABG pCO2 POC ABG pO2 ABG pO2 ABG HCO3 ABG Base Excess ABG Hemoglobin Oxyhemoglobin Sodium Potassium Chloride Carbon Dioxide BUN Creatinine Glucose POC Glucose 155 H 186 H Lactic Acid Calcium Phosphorus Magnesium Direct Bilirubin AST ALT Alkaline Phosphatase Lactate Dehydrogenase Troponin T C-Reactive Protein Total Protein Albumin Prealbumin Triglycerides Cholesterol LDL Cholesterol Direct HDL Cholesterol PTH Intact Urine pH Urine WBC (Auto) 25.0 H Urine Creatinine Urine Total Protein Fluid Total Protein Vancomycin Trough Rheumatoid Factor Complement C4 Miscellaneous Test Crossmatch 09/09/16 09/09/16 09/10/16 17:33 23:13 05:09 WBC RBC Hgb Hct MCV MCH MCHC RDW Plt Count Lymph % (Auto) [place] % (Auto) Lymph # [place] # Baso # Seg Neutrophils % Seg Neuts % (Manual) Lymphocytes % (Manual) Monocytes % (Manual) Eosinophils % (Manual) Basophils % (Manual) Nucleated RBC % Seg Neutrophils # Seg Neutrophils # Man Lymphocytes # (Manual) Monocytes # (Manual) Eosinophils # (Manual) Basophils # (Manual) PT INR Fibrinogen dRVVT Confirm Interp Factor V Activity POC ABG pH POC ABG pCO2 POC ABG pO2 74 L ABG pO2 ABG HCO3 ABG Base Excess ABG Hemoglobin Oxyhemoglobin Sodium Potassium Chloride Carbon Dioxide BUN Creatinine Glucose POC Glucose 211 H 215 H Lactic Acid Calcium Phosphorus Magnesium Direct Bilirubin AST ALT Alkaline Phosphatase Lactate Dehydrogenase Troponin T C-Reactive Protein Total Protein Albumin Prealbumin Triglycerides Cholesterol LDL Cholesterol Direct HDL Cholesterol PTH Intact Urine pH Urine WBC (Auto) Urine Creatinine Urine Total Protein Fluid Total Protein Vancomycin Trough Rheumatoid Factor Complement C4 Miscellaneous Test Crossmatch 09/10/16 09/10/16 09/10/16 05:17 05:17 11:31 WBC 15.8 H RBC 3.25 L Hgb 7.3 L Hct 22.9 L MCV 71 L MCH 23 L MCHC RDW 18.4 H Plt Count Lymph % (Auto) [place] % (Auto) Lymph # [place] # Baso # Seg Neutrophils % Seg Neuts % (Manual) 91.0 H Lymphocytes % (Manual) 4.0 L Monocytes % (Manual) Eosinophils % (Manual) Basophils % (Manual) Nucleated RBC % Seg Neutrophils # Seg Neutrophils # Man 14.4 H Lymphocytes # (Manual) 0.6 L Monocytes # (Manual) Eosinophils # (Manual) Basophils # (Manual) PT INR Fibrinogen dRVVT Confirm Interp Factor V Activity POC ABG pH POC ABG pCO2 POC ABG pO2 ABG pO2 ABG HCO3 ABG Base Excess ABG Hemoglobin Oxyhemoglobin Sodium Potassium Chloride Carbon Dioxide 21 L BUN 93 H Creatinine 2.9 H Glucose 146 H POC Glucose 188 H Lactic Acid Calcium 8.1 L Phosphorus Magnesium Direct Bilirubin AST ALT Alkaline Phosphatase Lactate Dehydrogenase Troponin T C-Reactive Protein Total Protein Albumin Prealbumin Triglycerides Cholesterol LDL Cholesterol Direct HDL Cholesterol PTH Intact Urine pH Urine WBC (Auto) Urine Creatinine Urine Total Protein Fluid Total Protein Vancomycin Trough Rheumatoid Factor Complement C4 Miscellaneous Test Crossmatch 09/10/16 09/10/16 09/10/16 13:17 17:20 23:32 WBC RBC Hgb Hct MCV MCH MCHC RDW Plt Count Lymph % (Auto) [place] % (Auto) Lymph # [place] # Baso # Seg Neutrophils % Seg Neuts % (Manual) Lymphocytes % (Manual) Monocytes % (Manual) Eosinophils % (Manual) Basophils % (Manual) Nucleated RBC % Seg Neutrophils # Seg Neutrophils # Man Lymphocytes # (Manual) Monocytes # (Manual) Eosinophils # (Manual) Basophils # (Manual) PT INR Fibrinogen dRVVT Confirm Interp Factor V Activity POC ABG pH POC ABG pCO2 POC ABG pO2 ABG pO2 ABG HCO3 ABG Base Excess ABG Hemoglobin Oxyhemoglobin Sodium Potassium Chloride Carbon Dioxide BUN Creatinine Glucose POC Glucose 199 H 186 H Lactic Acid Calcium Phosphorus Magnesium Direct Bilirubin AST ALT Alkaline Phosphatase Lactate Dehydrogenase Troponin T C-Reactive Protein Total Protein Albumin Prealbumin Triglycerides Cholesterol LDL Cholesterol Direct HDL Cholesterol PTH Intact Urine pH Urine WBC (Auto) Urine Creatinine Urine Total Protein Fluid Total Protein Vancomycin Trough Rheumatoid Factor Complement C4 Miscellaneous Test Crossmatch See Detail 09/11/16 09/11/16 09/11/16 05:10 05:10 05:17 WBC 28.4 H RBC Hgb 9.2 L Hct 29.3 L D MCV 73 L MCH 23 L MCHC RDW 18.9 H Plt Count 452 H Lymph % (Auto) [place] % (Auto) Lymph # [place] # Baso # Seg Neutrophils % Seg Neuts % (Manual) 89.5 H Lymphocytes % (Manual) 2.0 L Monocytes % (Manual) Eosinophils % (Manual) Basophils % (Manual) Nucleated RBC % Seg Neutrophils # Seg Neutrophils # Man 25.4 H Lymphocytes # (Manual) 0.6 L Monocytes # (Manual) 1.3 H Eosinophils # (Manual) Basophils # (Manual) PT INR Fibrinogen dRVVT Confirm Interp Factor V Activity POC ABG pH POC ABG pCO2 POC ABG pO2 ABG pO2 ABG HCO3 ABG Base Excess ABG Hemoglobin Oxyhemoglobin Sodium 136 L Potassium Chloride Carbon Dioxide 18 L BUN 107 H Creatinine 2.6 H Glucose 187 H POC Glucose 230 H Lactic Acid Calcium 8.3 L Phosphorus Magnesium Direct Bilirubin AST ALT Alkaline Phosphatase Lactate Dehydrogenase Troponin T C-Reactive Protein Total Protein Albumin Prealbumin Triglycerides Cholesterol LDL Cholesterol Direct HDL Cholesterol PTH Intact Urine pH Urine WBC (Auto) Urine Creatinine Urine Total Protein Fluid Total Protein Vancomycin Trough Rheumatoid Factor Complement C4 Miscellaneous Test Crossmatch 09/11/16 09/11/16 09/11/16 05:55 12:02 17:32 WBC RBC Hgb Hct MCV MCH MCHC RDW Plt Count Lymph % (Auto) [place] % (Auto) Lymph # [place] # Baso # Seg Neutrophils % Seg Neuts % (Manual) Lymphocytes % (Manual) Monocytes % (Manual) Eosinophils % (Manual) Basophils % (Manual) Nucleated RBC % Seg Neutrophils # Seg Neutrophils # Man Lymphocytes # (Manual) Monocytes # (Manual) Eosinophils # (Manual) Basophils # (Manual) PT INR Fibrinogen dRVVT Confirm Interp Factor V Activity POC ABG pH POC ABG pCO2 33.8 L POC ABG pO2 ABG pO2 ABG HCO3 ABG Base Excess ABG Hemoglobin Oxyhemoglobin Sodium Potassium Chloride Carbon Dioxide BUN Creatinine Glucose POC Glucose 191 H 239 H Lactic Acid Calcium Phosphorus Magnesium Direct Bilirubin AST ALT Alkaline Phosphatase Lactate Dehydrogenase Troponin T C-Reactive Protein Total Protein Albumin Prealbumin Triglycerides Cholesterol LDL Cholesterol Direct HDL Cholesterol PTH Intact Urine pH Urine WBC (Auto) Urine Creatinine Urine Total Protein Fluid Total Protein Vancomycin Trough Rheumatoid Factor Complement C4 Miscellaneous Test Crossmatch 09/11/16 09/12/16 09/12/16 23:52 05:09 05:32 WBC RBC Hgb Hct MCV MCH MCHC RDW Plt Count Lymph % (Auto) [place] % (Auto) Lymph # [place] # Baso # Seg Neutrophils % Seg Neuts % (Manual) Lymphocytes % (Manual) Monocytes % (Manual) Eosinophils % (Manual) Basophils % (Manual) Nucleated RBC % Seg Neutrophils # Seg Neutrophils # Man Lymphocytes # (Manual) Monocytes # (Manual) Eosinophils # (Manual) Basophils # (Manual) PT INR Fibrinogen dRVVT Confirm Interp Factor V Activity POC ABG pH POC ABG pCO2 34.6 L POC ABG pO2 ABG pO2 ABG HCO3 ABG Base Excess ABG Hemoglobin Oxyhemoglobin Sodium Potassium Chloride Carbon Dioxide BUN Creatinine Glucose POC Glucose 265 H 184 H Lactic Acid Calcium Phosphorus Magnesium Direct Bilirubin AST ALT Alkaline Phosphatase Lactate Dehydrogenase Troponin T C-Reactive Protein Total Protein Albumin Prealbumin Triglycerides Cholesterol LDL Cholesterol Direct HDL Cholesterol PTH Intact Urine pH Urine WBC (Auto) Urine Creatinine Urine Total Protein Fluid Total Protein Vancomycin Trough Rheumatoid Factor Complement C4 Miscellaneous Test Crossmatch 09/12/16 09/12/16 09/12/16 06:45 06:45 07:22 WBC 31.7 H RBC 3.54 L Hgb 8.3 L Hct 25.9 L MCV 73 L MCH 23 L MCHC RDW 18.9 H Plt Count Lymph % (Auto) [place] % (Auto) Lymph # [place] # Baso # Seg Neutrophils % Seg Neuts % (Manual) 88.5 H Lymphocytes % (Manual) 4.5 L Monocytes % (Manual) Eosinophils % (Manual) Basophils % (Manual) Nucleated RBC % Seg Neutrophils # Seg Neutrophils # Man 28.1 H Lymphocytes # (Manual) Monocytes # (Manual) 1.0 H Eosinophils # (Manual) Basophils # (Manual) PT INR Fibrinogen dRVVT Confirm Interp Factor V Activity POC ABG pH POC ABG pCO2 POC ABG pO2 ABG pO2 ABG HCO3 ABG Base Excess ABG Hemoglobin Oxyhemoglobin Sodium Potassium Chloride Carbon Dioxide 20 L BUN 115 H Creatinine 2.7 H Glucose 165 H POC Glucose Lactic Acid Calcium 8.0 L Phosphorus Magnesium Direct Bilirubin AST ALT Alkaline Phosphatase Lactate Dehydrogenase Troponin T C-Reactive Protein Total Protein Albumin Prealbumin Triglycerides 217 H Cholesterol LDL Cholesterol Direct HDL Cholesterol PTH Intact Urine pH Urine WBC (Auto) Urine Creatinine Urine Total Protein Fluid Total Protein Vancomycin Trough Rheumatoid Factor Complement C4 Miscellaneous Test Crossmatch 09/12/16 09/12/16 09/12/16 07:22 09:59 12:21 WBC RBC Hgb Hct MCV MCH MCHC RDW Plt Count Lymph % (Auto) [place] % (Auto) Lymph # [place] # Baso # Seg Neutrophils % Seg Neuts % (Manual) Lymphocytes % (Manual) Monocytes % (Manual) Eosinophils % (Manual) Basophils % (Manual) Nucleated RBC % Seg Neutrophils # Seg Neutrophils # Man Lymphocytes # (Manual) Monocytes # (Manual) Eosinophils # (Manual) Basophils # (Manual) PT INR Fibrinogen dRVVT Confirm Interp Positive H Factor V Activity POC ABG pH POC ABG pCO2 POC ABG pO2 ABG pO2 ABG HCO3 ABG Base Excess ABG Hemoglobin Oxyhemoglobin Sodium Potassium Chloride Carbon Dioxide BUN Creatinine Glucose POC Glucose 224 H Lactic Acid Calcium Phosphorus Magnesium Direct Bilirubin AST ALT Alkaline Phosphatase Lactate Dehydrogenase Troponin T C-Reactive Protein 1.70 H Total Protein Albumin Prealbumin Triglycerides Cholesterol LDL Cholesterol Direct HDL Cholesterol PTH Intact Urine pH Urine WBC (Auto) Urine Creatinine Urine Total Protein Fluid Total Protein Vancomycin Trough Rheumatoid Factor Complement C4 Miscellaneous Test Crossmatch 09/12/16 09/12/16 09/13/16 16:51 23:28 04:00 WBC 45.0 H* RBC Hgb 9.4 L Hct MCV 75 L MCH 23 L MCHC RDW 19.0 H Plt Count 470 H Lymph % (Auto) [place] % (Auto) Lymph # [place] # Baso # Seg Neutrophils % Seg Neuts % (Manual) 89.0 H Lymphocytes % (Manual) 5.0 L Monocytes % (Manual) Eosinophils % (Manual) Basophils % (Manual) Nucleated RBC % Seg Neutrophils # Seg Neutrophils # Man 40.1 H Lymphocytes # (Manual) Monocytes # (Manual) Eosinophils # (Manual) Basophils # (Manual) PT INR Fibrinogen dRVVT Confirm Interp Factor V Activity POC ABG pH POC ABG pCO2 POC ABG pO2 ABG pO2 ABG HCO3 ABG Base Excess ABG Hemoglobin Oxyhemoglobin Sodium Potassium Chloride Carbon Dioxide BUN Creatinine Glucose POC Glucose 169 H 150 H Lactic Acid Calcium Phosphorus Magnesium Direct Bilirubin AST ALT Alkaline Phosphatase Lactate Dehydrogenase Troponin T C-Reactive Protein Total Protein Albumin Prealbumin Triglycerides Cholesterol LDL Cholesterol Direct HDL Cholesterol PTH Intact Urine pH Urine WBC (Auto) Urine Creatinine Urine Total Protein Fluid Total Protein Vancomycin Trough Rheumatoid Factor Complement C4 Miscellaneous Test Crossmatch 09/13/16 09/13/16 09/13/16 04:00 11:26 17:31 WBC RBC Hgb Hct MCV MCH MCHC RDW Plt Count Lymph % (Auto) [place] % (Auto) Lymph # [place] # Baso # Seg Neutrophils % Seg Neuts % (Manual) Lymphocytes % (Manual) Monocytes % (Manual) Eosinophils % (Manual) Basophils % (Manual) Nucleated RBC % Seg Neutrophils # Seg Neutrophils # Man Lymphocytes # (Manual) Monocytes # (Manual) Eosinophils # (Manual) Basophils # (Manual) PT INR Fibrinogen dRVVT Confirm Interp Factor V Activity POC ABG pH POC ABG pCO2 POC ABG pO2 ABG pO2 ABG HCO3 ABG Base Excess ABG Hemoglobin Oxyhemoglobin Sodium Potassium Chloride Carbon Dioxide 20 L BUN 116 H Creatinine 3.0 H Glucose 172 H POC Glucose 140 H 183 H Lactic Acid Calcium Phosphorus Magnesium Direct Bilirubin AST ALT Alkaline Phosphatase Lactate Dehydrogenase Troponin T C-Reactive Protein Total Protein 6.2 L Albumin 2.9 L Prealbumin Triglycerides Cholesterol LDL Cholesterol Direct HDL Cholesterol PTH Intact Urine pH Urine WBC (Auto) Urine Creatinine Urine Total Protein Fluid Total Protein Vancomycin Trough Rheumatoid Factor Complement C4 Miscellaneous Test Crossmatch 09/13/16 09/14/16 09/14/16 23:23 04:06 04:07 WBC 29.4 H RBC Hgb 8.9 L Hct 27.3 L MCV 75 L MCH 24 L MCHC RDW 19.1 H Plt Count Lymph % (Auto) [place] % (Auto) Lymph # [place] # Baso # Seg Neutrophils % Seg Neuts % (Manual) 84.0 H Lymphocytes % (Manual) 6.0 L Monocytes % (Manual) 9.0 H Eosinophils % (Manual) Basophils % (Manual) Nucleated RBC % Seg Neutrophils # Seg Neutrophils # Man 24.7 H Lymphocytes # (Manual) Monocytes # (Manual) 2.6 H Eosinophils # (Manual) Basophils # (Manual) PT INR Fibrinogen dRVVT Confirm Interp Factor V Activity POC ABG pH 7.342 L POC ABG pCO2 POC ABG pO2 116 H ABG pO2 ABG HCO3 ABG Base Excess ABG Hemoglobin Oxyhemoglobin Sodium Potassium Chloride Carbon Dioxide BUN Creatinine Glucose POC Glucose 154 H Lactic Acid Calcium Phosphorus Magnesium Direct Bilirubin AST ALT Alkaline Phosphatase Lactate Dehydrogenase Troponin T C-Reactive Protein Total Protein Albumin Prealbumin Triglycerides Cholesterol LDL Cholesterol Direct HDL Cholesterol PTH Intact Urine pH Urine WBC (Auto) Urine Creatinine Urine Total Protein Fluid Total Protein Vancomycin Trough Rheumatoid Factor Complement C4 Miscellaneous Test Crossmatch 09/14/16 09/14/16 09/14/16 04:07 05:29 12:19 WBC RBC Hgb Hct MCV MCH MCHC RDW Plt Count Lymph % (Auto) [place] % (Auto) Lymph # [place] # Baso # Seg Neutrophils % Seg Neuts % (Manual) Lymphocytes % (Manual) Monocytes % (Manual) Eosinophils % (Manual) Basophils % (Manual) Nucleated RBC % Seg Neutrophils # Seg Neutrophils # Man Lymphocytes # (Manual) Monocytes # (Manual) Eosinophils # (Manual) Basophils # (Manual) PT INR Fibrinogen dRVVT Confirm Interp Factor V Activity POC ABG pH POC ABG pCO2 POC ABG pO2 ABG pO2 ABG HCO3 ABG Base Excess ABG Hemoglobin Oxyhemoglobin Sodium 136 L Potassium Chloride Carbon Dioxide 18 L BUN 121 H Creatinine 2.8 H Glucose 214 H POC Glucose 239 H 181 H Lactic Acid Calcium Phosphorus Magnesium Direct Bilirubin AST ALT Alkaline Phosphatase Lactate Dehydrogenase Troponin T C-Reactive Protein Total Protein Albumin Prealbumin Triglycerides Cholesterol LDL Cholesterol Direct HDL Cholesterol PTH Intact Urine pH Urine WBC (Auto) Urine Creatinine Urine Total Protein Fluid Total Protein Vancomycin Trough Rheumatoid Factor Complement C4 Miscellaneous Test Crossmatch 09/14/16 09/14/16 09/15/16 18:12 23:37 05:00 WBC 26.1 H RBC 3.05 L Hgb 7.2 L Hct 22.9 L MCV 75 L MCH 24 L MCHC RDW 19.0 H Plt Count Lymph % (Auto) [place] % (Auto) Lymph # [place] # Baso # Seg Neutrophils % Seg Neuts % (Manual) Lymphocytes % (Manual) Monocytes % (Manual) Eosinophils % (Manual) Basophils % (Manual) Nucleated RBC % Seg Neutrophils # Seg Neutrophils # Man Lymphocytes # (Manual) Monocytes # (Manual) Eosinophils # (Manual) Basophils # (Manual) PT INR Fibrinogen dRVVT Confirm Interp Factor V Activity POC ABG pH POC ABG pCO2 POC ABG pO2 ABG pO2 ABG HCO3 ABG Base Excess ABG Hemoglobin Oxyhemoglobin Sodium Potassium Chloride Carbon Dioxide BUN Creatinine Glucose POC Glucose 266 H 154 H Lactic Acid Calcium Phosphorus Magnesium Direct Bilirubin AST ALT Alkaline Phosphatase Lactate Dehydrogenase Troponin T C-Reactive Protein Total Protein Albumin Prealbumin Triglycerides Cholesterol LDL Cholesterol Direct HDL Cholesterol PTH Intact Urine pH Urine WBC (Auto) Urine Creatinine Urine Total Protein Fluid Total Protein Vancomycin Trough Rheumatoid Factor Complement C4 Miscellaneous Test Crossmatch 09/15/16 09/15/16 09/15/16 05:00 05:17 12:45 WBC RBC Hgb Hct MCV MCH MCHC RDW Plt Count Lymph % (Auto) [place] % (Auto) Lymph # [place] # Baso # Seg Neutrophils % Seg Neuts % (Manual) Lymphocytes % (Manual) Monocytes % (Manual) Eosinophils % (Manual) Basophils % (Manual) Nucleated RBC % Seg Neutrophils # Seg Neutrophils # Man Lymphocytes # (Manual) Monocytes # (Manual) Eosinophils # (Manual) Basophils # (Manual) PT INR Fibrinogen dRVVT Confirm Interp Factor V Activity POC ABG pH POC ABG pCO2 POC ABG pO2 ABG pO2 ABG HCO3 ABG Base Excess ABG Hemoglobin Oxyhemoglobin Sodium Potassium 5.2 H Chloride Carbon Dioxide 18 L BUN 139 H Creatinine 3.7 H Glucose 227 H POC Glucose 226 H 244 H Lactic Acid Calcium 8.3 L Phosphorus Magnesium Direct Bilirubin AST ALT Alkaline Phosphatase Lactate Dehydrogenase Troponin T C-Reactive Protein Total Protein Albumin Prealbumin Triglycerides Cholesterol LDL Cholesterol Direct HDL Cholesterol PTH Intact Urine pH Urine WBC (Auto) Urine Creatinine Urine Total Protein Fluid Total Protein Vancomycin Trough Rheumatoid Factor Complement C4 Miscellaneous Test Crossmatch 09/15/16 09/15/16 09/15/16 14:32 17:33 23:35 WBC RBC Hgb Hct MCV MCH MCHC RDW Plt Count Lymph % (Auto) [place] % (Auto) Lymph # [place] # Baso # Seg Neutrophils % Seg Neuts % (Manual) Lymphocytes % (Manual) Monocytes % (Manual) Eosinophils % (Manual) Basophils % (Manual) Nucleated RBC % Seg Neutrophils # Seg Neutrophils # Man Lymphocytes # (Manual) Monocytes # (Manual) Eosinophils # (Manual) Basophils # (Manual) PT INR Fibrinogen dRVVT Confirm Interp Factor V Activity POC ABG pH POC ABG pCO2 27.7 L POC ABG pO2 120 H ABG pO2 ABG HCO3 ABG Base Excess ABG Hemoglobin Oxyhemoglobin Sodium Potassium Chloride Carbon Dioxide BUN Creatinine Glucose POC Glucose 232 H 167 H Lactic Acid Calcium Phosphorus Magnesium Direct Bilirubin AST ALT Alkaline Phosphatase Lactate Dehydrogenase Troponin T C-Reactive Protein Total Protein Albumin Prealbumin Triglycerides Cholesterol LDL Cholesterol Direct HDL Cholesterol PTH Intact Urine pH Urine WBC (Auto) Urine Creatinine Urine Total Protein Fluid Total Protein Vancomycin Trough Rheumatoid Factor Complement C4 Miscellaneous Test Crossmatch 09/16/16 09/16/16 09/16/16 03:58 10:27 10:27 WBC 19.0 H RBC 2.77 L Hgb 6.5 L Hct 20.9 L MCV 76 L MCH 23 L MCHC RDW 19.3 H Plt Count Lymph % (Auto) 11.0 L [place] % (Auto) Lymph # [place] # 1.1 H Baso # Seg Neutrophils % 82.5 H Seg Neuts % (Manual) Lymphocytes % (Manual) Monocytes % (Manual) Eosinophils % (Manual) Basophils % (Manual) Nucleated RBC % Seg Neutrophils # 15.7 H Seg Neutrophils # Man Lymphocytes # (Manual) Monocytes # (Manual) Eosinophils # (Manual) Basophils # (Manual) PT INR Fibrinogen dRVVT Confirm Interp Factor V Activity POC ABG pH POC ABG pCO2 POC ABG pO2 ABG pO2 ABG HCO3 ABG Base Excess ABG Hemoglobin Oxyhemoglobin Sodium Potassium Chloride 109.3 H Carbon Dioxide 18 L BUN 139 H Creatinine 4.1 H Glucose 144 H POC Glucose 146 H Lactic Acid Calcium 8.1 L Phosphorus Magnesium Direct Bilirubin AST ALT Alkaline Phosphatase Lactate Dehydrogenase Troponin T C-Reactive Protein Total Protein Albumin Prealbumin Triglycerides Cholesterol LDL Cholesterol Direct HDL Cholesterol PTH Intact Urine pH Urine WBC (Auto) Urine Creatinine Urine Total Protein Fluid Total Protein Vancomycin Trough Rheumatoid Factor Complement C4 Miscellaneous Test Crossmatch 09/16/16 09/16/16 09/16/16 12:04 12:10 13:55 WBC RBC Hgb Hct MCV MCH MCHC RDW Plt Count Lymph % (Auto) [place] % (Auto) Lymph # [place] # Baso # Seg Neutrophils % Seg Neuts % (Manual) Lymphocytes % (Manual) Monocytes % (Manual) Eosinophils % (Manual) Basophils % (Manual) Nucleated RBC % Seg Neutrophils # Seg Neutrophils # Man Lymphocytes # (Manual) Monocytes # (Manual) Eosinophils # (Manual) Basophils # (Manual) PT INR Fibrinogen dRVVT Confirm Interp Factor V Activity POC ABG pH POC ABG pCO2 32.9 L POC ABG pO2 ABG pO2 ABG HCO3 ABG Base Excess ABG Hemoglobin Oxyhemoglobin Sodium Potassium Chloride Carbon Dioxide BUN Creatinine Glucose POC Glucose 185 H Lactic Acid Calcium Phosphorus Magnesium Direct Bilirubin AST ALT Alkaline Phosphatase Lactate Dehydrogenase Troponin T C-Reactive Protein Total Protein Albumin Prealbumin Triglycerides Cholesterol LDL Cholesterol Direct HDL Cholesterol PTH Intact Urine pH Urine WBC (Auto) Urine Creatinine Urine Total Protein Fluid Total Protein Vancomycin Trough Rheumatoid Factor Complement C4 Miscellaneous Test Crossmatch See Detail 09/16/16 09/16/16 09/16/16 17:55 19:19 23:48 WBC RBC Hgb Hct MCV MCH MCHC RDW Plt Count Lymph % (Auto) [place] % (Auto) Lymph # [place] # Baso # Seg Neutrophils % Seg Neuts % (Manual) Lymphocytes % (Manual) Monocytes % (Manual) Eosinophils % (Manual) Basophils % (Manual) Nucleated RBC % Seg Neutrophils # Seg Neutrophils # Man Lymphocytes # (Manual) Monocytes # (Manual) Eosinophils # (Manual) Basophils # (Manual) PT INR Fibrinogen dRVVT Confirm Interp Factor V Activity POC ABG pH POC ABG pCO2 POC ABG pO2 ABG pO2 ABG HCO3 ABG Base Excess ABG Hemoglobin Oxyhemoglobin Sodium Potassium Chloride Carbon Dioxide BUN Creatinine Glucose POC Glucose 222 H 107 H Lactic Acid Calcium Phosphorus Magnesium Direct Bilirubin AST ALT Alkaline Phosphatase Lactate Dehydrogenase Troponin T C-Reactive Protein Total Protein Albumin Prealbumin Triglycerides Cholesterol LDL Cholesterol Direct HDL Cholesterol PTH Intact Urine pH Urine WBC (Auto) Urine Creatinine 47.4 H Urine Total Protein 16 H Fluid Total Protein Vancomycin Trough Rheumatoid Factor Complement C4 Miscellaneous Test Crossmatch 09/17/16 09/17/16 09/17/16 03:45 03:45 04:55 WBC 19.6 H RBC 3.41 L Hgb 8.5 L Hct 26.7 L MCV 78 L MCH 25 L MCHC RDW 19.9 H Plt Count Lymph % (Auto) 9.3 L [place] % (Auto) Lymph # [place] # 1.2 H Baso # Seg Neutrophils % 83.9 H Seg Neuts % (Manual) Lymphocytes % (Manual) Monocytes % (Manual) Eosinophils % (Manual) Basophils % (Manual) Nucleated RBC % Seg Neutrophils # 16.4 H Seg Neutrophils # Man Lymphocytes # (Manual) Monocytes # (Manual) Eosinophils # (Manual) Basophils # (Manual) PT INR Fibrinogen dRVVT Confirm Interp Factor V Activity POC ABG pH POC ABG pCO2 POC ABG pO2 ABG pO2 ABG HCO3 ABG Base Excess ABG Hemoglobin Oxyhemoglobin Sodium 146 H Potassium 5.1 H Chloride 110.9 H Carbon Dioxide 16 L BUN 146 H Creatinine 4.0 H Glucose 108 H POC Glucose 133 H Lactic Acid Calcium Phosphorus Magnesium 3.00 H Direct Bilirubin AST ALT Alkaline Phosphatase Lactate Dehydrogenase Troponin T C-Reactive Protein Total Protein Albumin Prealbumin Triglycerides Cholesterol LDL Cholesterol Direct HDL Cholesterol PTH Intact Urine pH Urine WBC (Auto) Urine Creatinine Urine Total Protein Fluid Total Protein Vancomycin Trough Rheumatoid Factor Complement C4 Miscellaneous Test Crossmatch 09/17/16 09/17/16 09/17/16 11:15 17:33 23:47 WBC RBC Hgb Hct MCV MCH MCHC RDW Plt Count Lymph % (Auto) [place] % (Auto) Lymph # [place] # Baso # Seg Neutrophils % Seg Neuts % (Manual) Lymphocytes % (Manual) Monocytes % (Manual) Eosinophils % (Manual) Basophils % (Manual) Nucleated RBC % Seg Neutrophils # Seg Neutrophils # Man Lymphocytes # (Manual) Monocytes # (Manual) Eosinophils # (Manual) Basophils # (Manual) PT INR Fibrinogen dRVVT Confirm Interp Factor V Activity POC ABG pH POC ABG pCO2 POC ABG pO2 ABG pO2 ABG HCO3 ABG Base Excess ABG Hemoglobin Oxyhemoglobin Sodium Potassium Chloride Carbon Dioxide BUN Creatinine Glucose POC Glucose 176 H 246 H 148 H Lactic Acid Calcium Phosphorus Magnesium Direct Bilirubin AST ALT Alkaline Phosphatase Lactate Dehydrogenase Troponin T C-Reactive Protein Total Protein Albumin Prealbumin Triglycerides Cholesterol LDL Cholesterol Direct HDL Cholesterol PTH Intact Urine pH Urine WBC (Auto) Urine Creatinine Urine Total Protein Fluid Total Protein Vancomycin Trough Rheumatoid Factor Complement C4 Miscellaneous Test Crossmatch 09/18/16 09/18/16 09/18/16 05:33 08:31 08:31 WBC 18.0 H RBC 3.17 L Hgb 9.0 L Hct 25.7 L MCV MCH MCHC 35 H RDW 20.4 H Plt Count Lymph % (Auto) [place] % (Auto) Lymph # [place] # Baso # Seg Neutrophils % Seg Neuts % (Manual) Lymphocytes % (Manual) Monocytes % (Manual) Eosinophils % (Manual) Basophils % (Manual) Nucleated RBC % Seg Neutrophils # Seg Neutrophils # Man Lymphocytes # (Manual) Monocytes # (Manual) Eosinophils # (Manual) Basophils # (Manual) PT INR Fibrinogen dRVVT Confirm Interp Factor V Activity POC ABG pH POC ABG pCO2 POC ABG pO2 ABG pO2 ABG HCO3 ABG Base Excess ABG Hemoglobin Oxyhemoglobin Sodium Potassium Chloride Carbon Dioxide 15 L BUN 124 H Creatinine 3.8 H Glucose POC Glucose 120 H Lactic Acid Calcium 8.1 L Phosphorus Magnesium Direct Bilirubin AST ALT Alkaline Phosphatase Lactate Dehydrogenase Troponin T C-Reactive Protein Total Protein Albumin Prealbumin Triglycerides Cholesterol LDL Cholesterol Direct HDL Cholesterol PTH Intact Urine pH Urine WBC (Auto) Urine Creatinine Urine Total Protein Fluid Total Protein Vancomycin Trough Rheumatoid Factor Complement C4 Miscellaneous Test Crossmatch 09/18/16 09/18/16 09/18/16 12:03 15:34 17:50 WBC RBC Hgb Hct MCV MCH MCHC RDW Plt Count Lymph % (Auto) [place] % (Auto) Lymph # [place] # Baso # Seg Neutrophils % Seg Neuts % (Manual) Lymphocytes % (Manual) Monocytes % (Manual) Eosinophils % (Manual) Basophils % (Manual) Nucleated RBC % Seg Neutrophils # Seg Neutrophils # Man Lymphocytes # (Manual) Monocytes # (Manual) Eosinophils # (Manual) Basophils # (Manual) PT INR Fibrinogen dRVVT Confirm Interp Factor V Activity POC ABG pH POC ABG pCO2 25.7 L POC ABG pO2 66 L ABG pO2 ABG HCO3 ABG Base Excess ABG Hemoglobin Oxyhemoglobin Sodium Potassium Chloride Carbon Dioxide BUN Creatinine Glucose POC Glucose 156 H 220 H Lactic Acid Calcium Phosphorus Magnesium Direct Bilirubin AST ALT Alkaline Phosphatase Lactate Dehydrogenase Troponin T C-Reactive Protein Total Protein Albumin Prealbumin Triglycerides Cholesterol LDL Cholesterol Direct HDL Cholesterol PTH Intact Urine pH Urine WBC (Auto) Urine Creatinine Urine Total Protein Fluid Total Protein Vancomycin Trough Rheumatoid Factor Complement C4 Miscellaneous Test Crossmatch 09/19/16 09/19/16 09/19/16 06:21 09:50 09:50 WBC 17.1 H RBC 3.49 L Hgb 9.0 L Hct 28.1 L MCV MCH 26 L MCHC RDW 20.8 H Plt Count Lymph % (Auto) 11.5 L [place] % (Auto) 7.5 H Lymph # [place] # 1.3 H Baso # Seg Neutrophils % 79.8 H Seg Neuts % (Manual) Lymphocytes % (Manual) Monocytes % (Manual) Eosinophils % (Manual) Basophils % (Manual) Nucleated RBC % Seg Neutrophils # 13.7 H Seg Neutrophils # Man Lymphocytes # (Manual) Monocytes # (Manual) Eosinophils # (Manual) Basophils # (Manual) PT INR Fibrinogen dRVVT Confirm Interp Factor V Activity POC ABG pH POC ABG pCO2 POC ABG pO2 ABG pO2 ABG HCO3 ABG Base Excess ABG Hemoglobin Oxyhemoglobin Sodium Potassium Chloride 108.6 H Carbon Dioxide 15 L BUN 125 H Creatinine 4.1 H Glucose 124 H POC Glucose 119 H Lactic Acid Calcium Phosphorus Magnesium Direct Bilirubin AST ALT Alkaline Phosphatase Lactate Dehydrogenase Troponin T C-Reactive Protein Total Protein Albumin Prealbumin Triglycerides Cholesterol LDL Cholesterol Direct HDL Cholesterol PTH Intact Urine pH Urine WBC (Auto) Urine Creatinine Urine Total Protein Fluid Total Protein Vancomycin Trough Rheumatoid Factor Complement C4 Miscellaneous Test Crossmatch 09/19/16 09/19/16 09/19/16 11:25 17:53 23:36 WBC RBC Hgb Hct MCV MCH MCHC RDW Plt Count Lymph % (Auto) [place] % (Auto) Lymph # [place] # Baso # Seg Neutrophils % Seg Neuts % (Manual) Lymphocytes % (Manual) Monocytes % (Manual) Eosinophils % (Manual) Basophils % (Manual) Nucleated RBC % Seg Neutrophils # Seg Neutrophils # Man Lymphocytes # (Manual) Monocytes # (Manual) Eosinophils # (Manual) Basophils # (Manual) PT INR Fibrinogen dRVVT Confirm Interp Factor V Activity POC ABG pH POC ABG pCO2 POC ABG pO2 ABG pO2 ABG HCO3 ABG Base Excess ABG Hemoglobin Oxyhemoglobin Sodium Potassium Chloride Carbon Dioxide BUN Creatinine Glucose POC Glucose 160 H 245 H 121 H Lactic Acid Calcium Phosphorus Magnesium Direct Bilirubin AST ALT Alkaline Phosphatase Lactate Dehydrogenase Troponin T C-Reactive Protein Total Protein Albumin Prealbumin Triglycerides Cholesterol LDL Cholesterol Direct HDL Cholesterol PTH Intact Urine pH Urine WBC (Auto) Urine Creatinine Urine Total Protein Fluid Total Protein Vancomycin Trough Rheumatoid Factor Complement C4 Miscellaneous Test Crossmatch 09/20/16 09/20/16 09/20/16 04:10 04:10 04:10 WBC 17.0 H RBC 3.21 L Hgb 8.2 L Hct 25.5 L MCV MCH 26 L MCHC RDW 20.9 H Plt Count Lymph % (Auto) [place] % (Auto) Lymph # [place] # Baso # Seg Neutrophils % Seg Neuts % (Manual) Lymphocytes % (Manual) Monocytes % (Manual) Eosinophils % (Manual) Basophils % (Manual) Nucleated RBC % Seg Neutrophils # Seg Neutrophils # Man Lymphocytes # (Manual) Monocytes # (Manual) Eosinophils # (Manual) Basophils # (Manual) PT INR Fibrinogen dRVVT Confirm Interp Factor V Activity POC ABG pH POC ABG pCO2 POC ABG pO2 ABG pO2 ABG HCO3 ABG Base Excess ABG Hemoglobin Oxyhemoglobin Sodium Potassium Chloride 111.0 H Carbon Dioxide 16 L BUN 129 H Creatinine 3.7 H Glucose 115 H POC Glucose Lactic Acid Calcium 8.2 L Phosphorus Magnesium Direct Bilirubin AST ALT Alkaline Phosphatase Lactate Dehydrogenase Troponin T C-Reactive Protein Total Protein Albumin Prealbumin Triglycerides 243 H Cholesterol LDL Cholesterol Direct HDL Cholesterol PTH Intact Urine pH Urine WBC (Auto) Urine Creatinine Urine Total Protein Fluid Total Protein Vancomycin Trough Rheumatoid Factor Complement C4 Miscellaneous Test Crossmatch 09/20/16 09/20/16 09/20/16 05:40 11:52 16:50 WBC RBC Hgb Hct MCV MCH MCHC RDW Plt Count Lymph % (Auto) [place] % (Auto) Lymph # [place] # Baso # Seg Neutrophils % Seg Neuts % (Manual) Lymphocytes % (Manual) Monocytes % (Manual) Eosinophils % (Manual) Basophils % (Manual) Nucleated RBC % Seg Neutrophils # Seg Neutrophils # Man Lymphocytes # (Manual) Monocytes # (Manual) Eosinophils # (Manual) Basophils # (Manual) PT INR Fibrinogen dRVVT Confirm Interp Factor V Activity POC ABG pH POC ABG pCO2 POC ABG pO2 ABG pO2 ABG HCO3 ABG Base Excess ABG Hemoglobin Oxyhemoglobin Sodium Potassium Chloride Carbon Dioxide BUN Creatinine Glucose POC Glucose 131 H 183 H 236 H Lactic Acid Calcium Phosphorus Magnesium Direct Bilirubin AST ALT Alkaline Phosphatase Lactate Dehydrogenase Troponin T C-Reactive Protein Total Protein Albumin Prealbumin Triglycerides Cholesterol LDL Cholesterol Direct HDL Cholesterol PTH Intact Urine pH Urine WBC (Auto) Urine Creatinine Urine Total Protein Fluid Total Protein Vancomycin Trough Rheumatoid Factor Complement C4 Miscellaneous Test Crossmatch 09/20/16 09/21/16 09/21/16 23:51 03:30 04:44 WBC RBC Hgb Hct MCV MCH MCHC RDW Plt Count Lymph % (Auto) [place] % (Auto) Lymph # [place] # Baso # Seg Neutrophils % Seg Neuts % (Manual) Lymphocytes % (Manual) Monocytes % (Manual) Eosinophils % (Manual) Basophils % (Manual) Nucleated RBC % Seg Neutrophils # Seg Neutrophils # Man Lymphocytes # (Manual) Monocytes # (Manual) Eosinophils # (Manual) Basophils # (Manual) PT INR Fibrinogen dRVVT Confirm Interp Factor V Activity POC ABG pH POC ABG pCO2 POC ABG pO2 ABG pO2 ABG HCO3 ABG Base Excess ABG Hemoglobin Oxyhemoglobin Sodium Potassium Chloride Carbon Dioxide BUN Creatinine Glucose POC Glucose 114 H 141 H Lactic Acid Calcium Phosphorus Magnesium 2.70 H Direct Bilirubin AST ALT Alkaline Phosphatase Lactate Dehydrogenase Troponin T C-Reactive Protein Total Protein Albumin Prealbumin Triglycerides Cholesterol LDL Cholesterol Direct HDL Cholesterol PTH Intact Urine pH Urine WBC (Auto) Urine Creatinine Urine Total Protein Fluid Total Protein Vancomycin Trough Rheumatoid Factor Complement C4 Miscellaneous Test Crossmatch 09/21/16 09/21/16 09/21/16 07:45 07:45 10:01 WBC 13.8 H RBC 2.94 L Hgb 7.5 L Hct 23.5 L MCV MCH 26 L MCHC RDW 21.2 H Plt Count Lymph % (Auto) 6.9 L [place] % (Auto) 9.4 H Lymph # 0.9 L [place] # 1.3 H Baso # Seg Neutrophils % 83.2 H Seg Neuts % (Manual) Lymphocytes % (Manual) Monocytes % (Manual) Eosinophils % (Manual) Basophils % (Manual) Nucleated RBC % Seg Neutrophils # 11.5 H Seg Neutrophils # Man Lymphocytes # (Manual) Monocytes # (Manual) Eosinophils # (Manual) Basophils # (Manual) PT INR Fibrinogen dRVVT Confirm Interp Factor V Activity POC ABG pH 7.308 L POC ABG pCO2 31.9 L POC ABG pO2 148 H ABG pO2 ABG HCO3 ABG Base Excess ABG Hemoglobin Oxyhemoglobin Sodium 147 H Potassium Chloride 114.2 H Carbon Dioxide 15 L BUN 120 H Creatinine 3.9 H Glucose 156 H POC Glucose Lactic Acid Calcium 8.2 L Phosphorus Magnesium Direct Bilirubin AST ALT Alkaline Phosphatase Lactate Dehydrogenase Troponin T C-Reactive Protein Total Protein Albumin Prealbumin Triglycerides Cholesterol LDL Cholesterol Direct HDL Cholesterol PTH Intact Urine pH Urine WBC (Auto) Urine Creatinine Urine Total Protein Fluid Total Protein Vancomycin Trough Rheumatoid Factor Complement C4 Miscellaneous Test Crossmatch 09/21/16 09/21/16 09/21/16 12:00 12:03 13:00 WBC RBC Hgb Hct MCV MCH MCHC RDW Plt Count Lymph % (Auto) [place] % (Auto) Lymph # [place] # Baso # Seg Neutrophils % Seg Neuts % (Manual) Lymphocytes % (Manual) Monocytes % (Manual) Eosinophils % (Manual) Basophils % (Manual) Nucleated RBC % Seg Neutrophils # Seg Neutrophils # Man Lymphocytes # (Manual) Monocytes # (Manual) Eosinophils # (Manual) Basophils # (Manual) PT INR Fibrinogen dRVVT Confirm Interp Factor V Activity POC ABG pH POC ABG pCO2 POC ABG pO2 ABG pO2 ABG HCO3 ABG Base Excess ABG Hemoglobin Oxyhemoglobin Sodium Potassium Chloride Carbon Dioxide BUN Creatinine Glucose POC Glucose 163 H Lactic Acid Calcium Phosphorus Magnesium Direct Bilirubin AST ALT Alkaline Phosphatase Lactate Dehydrogenase Troponin T C-Reactive Protein Total Protein Albumin Prealbumin Triglycerides Cholesterol LDL Cholesterol Direct HDL Cholesterol PTH Intact Urine pH Urine WBC (Auto) Urine Creatinine 54.8 H Urine Total Protein Fluid Total Protein Vancomycin Trough 2.3 L Rheumatoid Factor Complement C4 Miscellaneous Test Crossmatch 09/21/16 09/21/16 09/22/16 16:51 23:17 06:27 WBC RBC Hgb Hct MCV MCH MCHC RDW Plt Count Lymph % (Auto) [place] % (Auto) Lymph # [place] # Baso # Seg Neutrophils % Seg Neuts % (Manual) Lymphocytes % (Manual) Monocytes % (Manual) Eosinophils % (Manual) Basophils % (Manual) Nucleated RBC % Seg Neutrophils # Seg Neutrophils # Man Lymphocytes # (Manual) Monocytes # (Manual) Eosinophils # (Manual) Basophils # (Manual) PT INR Fibrinogen dRVVT Confirm Interp Factor V Activity POC ABG pH POC ABG pCO2 POC ABG pO2 ABG pO2 ABG HCO3 ABG Base Excess ABG Hemoglobin Oxyhemoglobin Sodium Potassium Chloride Carbon Dioxide BUN Creatinine Glucose POC Glucose 206 H 114 H 115 H Lactic Acid Calcium Phosphorus Magnesium Direct Bilirubin AST ALT Alkaline Phosphatase Lactate Dehydrogenase Troponin T C-Reactive Protein Total Protein Albumin Prealbumin Triglycerides Cholesterol LDL Cholesterol Direct HDL Cholesterol PTH Intact Urine pH Urine WBC (Auto) Urine Creatinine Urine Total Protein Fluid Total Protein Vancomycin Trough Rheumatoid Factor Complement C4 Miscellaneous Test Crossmatch 09/22/16 09/22/16 09/22/16 07:50 07:50 12:00 WBC 17.8 H RBC 3.04 L Hgb 8.0 L Hct 24.7 L MCV MCH 26 L MCHC RDW 21.6 H Plt Count Lymph % (Auto) [place] % (Auto) Lymph # [place] # Baso # Seg Neutrophils % Seg Neuts % (Manual) Lymphocytes % (Manual) Monocytes % (Manual) Eosinophils % (Manual) Basophils % (Manual) Nucleated RBC % Seg Neutrophils # Seg Neutrophils # Man Lymphocytes # (Manual) Monocytes # (Manual) Eosinophils # (Manual) Basophils # (Manual) PT INR Fibrinogen dRVVT Confirm Interp Factor V Activity POC ABG pH POC ABG pCO2 POC ABG pO2 ABG pO2 ABG HCO3 ABG Base Excess ABG Hemoglobin Oxyhemoglobin Sodium 150 H Potassium Chloride 118.2 H Carbon Dioxide 14 L BUN 111 H Creatinine 3.7 H Glucose 157 H POC Glucose 183 H Lactic Acid Calcium Phosphorus Magnesium Direct Bilirubin AST ALT Alkaline Phosphatase Lactate Dehydrogenase Troponin T C-Reactive Protein Total Protein Albumin Prealbumin Triglycerides Cholesterol LDL Cholesterol Direct HDL Cholesterol PTH Intact Urine pH Urine WBC (Auto) Urine Creatinine Urine Total Protein Fluid Total Protein Vancomycin Trough Rheumatoid Factor Complement C4 Miscellaneous Test Crossmatch 09/22/16 09/22/16 09/23/16 17:29 23:10 05:00 WBC 19.2 H RBC 3.13 L Hgb 8.0 L Hct 25.2 L MCV MCH 26 L MCHC RDW 22.1 H Plt Count Lymph % (Auto) [place] % (Auto) Lymph # [place] # Baso # Seg Neutrophils % Seg Neuts % (Manual) 92.0 H Lymphocytes % (Manual) 3.0 L Monocytes % (Manual) Eosinophils % (Manual) Basophils % (Manual) Nucleated RBC % Seg Neutrophils # Seg Neutrophils # Man 17.7 H Lymphocytes # (Manual) 0.6 L Monocytes # (Manual) Eosinophils # (Manual) Basophils # (Manual) PT INR Fibrinogen dRVVT Confirm Interp Factor V Activity POC ABG pH POC ABG pCO2 POC ABG pO2 ABG pO2 ABG HCO3 ABG Base Excess ABG Hemoglobin Oxyhemoglobin Sodium Potassium Chloride Carbon Dioxide BUN Creatinine Glucose POC Glucose 197 H 169 H Lactic Acid Calcium Phosphorus Magnesium Direct Bilirubin AST ALT Alkaline Phosphatase Lactate Dehydrogenase Troponin T C-Reactive Protein Total Protein Albumin Prealbumin Triglycerides Cholesterol LDL Cholesterol Direct HDL Cholesterol PTH Intact Urine pH Urine WBC (Auto) Urine Creatinine Urine Total Protein Fluid Total Protein Vancomycin Trough Rheumatoid Factor Complement C4 Miscellaneous Test Crossmatch 09/23/16 09/23/16 09/23/16 05:00 05:00 05:10 WBC RBC Hgb Hct MCV MCH MCHC RDW Plt Count Lymph % (Auto) [place] % (Auto) Lymph # [place] # Baso # Seg Neutrophils % Seg Neuts % (Manual) Lymphocytes % (Manual) Monocytes % (Manual) Eosinophils % (Manual) Basophils % (Manual) Nucleated RBC % Seg Neutrophils # Seg Neutrophils # Man Lymphocytes # (Manual) Monocytes # (Manual) Eosinophils # (Manual) Basophils # (Manual) PT INR Fibrinogen dRVVT Confirm Interp Factor V Activity POC ABG pH POC ABG pCO2 POC ABG pO2 ABG pO2 ABG HCO3 ABG Base Excess ABG Hemoglobin Oxyhemoglobin Sodium 147 H Potassium 3.2 L Chloride 115.7 H Carbon Dioxide 13 L BUN 111 H Creatinine 3.8 H Glucose 194 H POC Glucose 188 H Lactic Acid Calcium 7.3 L D Phosphorus Magnesium Direct Bilirubin AST ALT Alkaline Phosphatase Lactate Dehydrogenase Troponin T C-Reactive Protein 3.20 H Total Protein Albumin Prealbumin Triglycerides Cholesterol LDL Cholesterol Direct HDL Cholesterol PTH Intact Urine pH Urine WBC (Auto) Urine Creatinine Urine Total Protein Fluid Total Protein Vancomycin Trough Rheumatoid Factor Complement C4 Miscellaneous Test Crossmatch 09/23/16 09/23/16 09/23/16 11:37 12:29 18:01 WBC RBC Hgb Hct MCV MCH MCHC RDW Plt Count Lymph % (Auto) [place] % (Auto) Lymph # [place] # Baso # Seg Neutrophils % Seg Neuts % (Manual) Lymphocytes % (Manual) Monocytes % (Manual) Eosinophils % (Manual) Basophils % (Manual) Nucleated RBC % Seg Neutrophils # Seg Neutrophils # Man Lymphocytes # (Manual) Monocytes # (Manual) Eosinophils # (Manual) Basophils # (Manual) PT INR Fibrinogen dRVVT Confirm Interp Factor V Activity POC ABG pH POC ABG pCO2 18.9 L POC ABG pO2 143 H ABG pO2 ABG HCO3 ABG Base Excess ABG Hemoglobin Oxyhemoglobin Sodium Potassium Chloride Carbon Dioxide BUN Creatinine Glucose POC Glucose 153 H 108 H Lactic Acid Calcium Phosphorus Magnesium Direct Bilirubin AST ALT Alkaline Phosphatase Lactate Dehydrogenase Troponin T C-Reactive Protein Total Protein Albumin Prealbumin Triglycerides Cholesterol LDL Cholesterol Direct HDL Cholesterol PTH Intact Urine pH Urine WBC (Auto) Urine Creatinine Urine Total Protein Fluid Total Protein Vancomycin Trough Rheumatoid Factor Complement C4 Miscellaneous Test Crossmatch 09/23/16 09/23/16 09/24/16 21:19 23:43 05:16 WBC RBC Hgb Hct MCV MCH MCHC RDW Plt Count Lymph % (Auto) [place] % (Auto) Lymph # [place] # Baso # Seg Neutrophils % Seg Neuts % (Manual) Lymphocytes % (Manual) Monocytes % (Manual) Eosinophils % (Manual) Basophils % (Manual) Nucleated RBC % Seg Neutrophils # Seg Neutrophils # Man Lymphocytes # (Manual) Monocytes # (Manual) Eosinophils # (Manual) Basophils # (Manual) PT INR Fibrinogen dRVVT Confirm Interp Factor V Activity POC ABG pH POC ABG pCO2 17.3 L POC ABG pO2 112 H ABG pO2 ABG HCO3 ABG Base Excess ABG Hemoglobin Oxyhemoglobin Sodium Potassium Chloride Carbon Dioxide BUN Creatinine Glucose POC Glucose 143 H 164 H Lactic Acid Calcium Phosphorus Magnesium Direct Bilirubin AST ALT Alkaline Phosphatase Lactate Dehydrogenase Troponin T C-Reactive Protein Total Protein Albumin Prealbumin Triglycerides Cholesterol LDL Cholesterol Direct HDL Cholesterol PTH Intact Urine pH Urine WBC (Auto) Urine Creatinine Urine Total Protein Fluid Total Protein Vancomycin Trough Rheumatoid Factor Complement C4 Miscellaneous Test Crossmatch 09/24/16 09/24/16 09/24/16 05:21 11:58 17:06 WBC RBC Hgb Hct MCV MCH MCHC RDW Plt Count Lymph % (Auto) [place] % (Auto) Lymph # [place] # Baso # Seg Neutrophils % Seg Neuts % (Manual) Lymphocytes % (Manual) Monocytes % (Manual) Eosinophils % (Manual) Basophils % (Manual) Nucleated RBC % Seg Neutrophils # Seg Neutrophils # Man Lymphocytes # (Manual) Monocytes # (Manual) Eosinophils # (Manual) Basophils # (Manual) PT INR Fibrinogen dRVVT Confirm Interp Factor V Activity POC ABG pH POC ABG pCO2 POC ABG pO2 ABG pO2 ABG HCO3 ABG Base Excess ABG Hemoglobin Oxyhemoglobin Sodium Potassium Chloride Carbon Dioxide 10 L BUN 103 H Creatinine 4.3 H Glucose 163 H POC Glucose 173 H 167 H Lactic Acid Calcium 6.5 L Phosphorus Magnesium Direct Bilirubin AST ALT Alkaline Phosphatase Lactate Dehydrogenase Troponin T C-Reactive Protein Total Protein Albumin Prealbumin Triglycerides Cholesterol LDL Cholesterol Direct HDL Cholesterol PTH Intact Urine pH Urine WBC (Auto) Urine Creatinine Urine Total Protein Fluid Total Protein Vancomycin Trough Rheumatoid Factor Complement C4 Miscellaneous Test Crossmatch 09/24/16 09/24/16 09/24/16 20:15 21:02 23:48 WBC RBC Hgb Hct MCV MCH MCHC RDW Plt Count Lymph % (Auto) [place] % (Auto) Lymph # [place] # Baso # Seg Neutrophils % Seg Neuts % (Manual) Lymphocytes % (Manual) Monocytes % (Manual) Eosinophils % (Manual) Basophils % (Manual) Nucleated RBC % Seg Neutrophils # Seg Neutrophils # Man Lymphocytes # (Manual) Monocytes # (Manual) Eosinophils # (Manual) Basophils # (Manual) PT INR Fibrinogen dRVVT Confirm Interp Factor V Activity POC ABG pH 7.288 L POC ABG pCO2 30.2 L 21.5 L POC ABG pO2 32 L 39 L ABG pO2 ABG HCO3 ABG Base Excess ABG Hemoglobin Oxyhemoglobin Sodium Potassium Chloride Carbon Dioxide BUN Creatinine Glucose POC Glucose 109 H Lactic Acid Calcium Phosphorus Magnesium Direct Bilirubin AST ALT Alkaline Phosphatase Lactate Dehydrogenase Troponin T C-Reactive Protein Total Protein Albumin Prealbumin Triglycerides Cholesterol LDL Cholesterol Direct HDL Cholesterol PTH Intact Urine pH Urine WBC (Auto) Urine Creatinine Urine Total Protein Fluid Total Protein Vancomycin Trough Rheumatoid Factor Complement C4 Miscellaneous Test Crossmatch 09/25/16 09/25/16 09/25/16 04:20 04:20 04:20 WBC RBC 2.58 L Hgb 7.0 L Hct 21.0 L MCV MCH 27 L MCHC RDW 23.8 H Plt Count Lymph % (Auto) [place] % (Auto) Lymph # [place] # Baso # Seg Neutrophils % Seg Neuts % (Manual) Lymphocytes % (Manual) 12.0 L Monocytes % (Manual) Eosinophils % (Manual) 7.0 H Basophils % (Manual) 2.0 H Nucleated RBC % Seg Neutrophils # Seg Neutrophils # Man Lymphocytes # (Manual) 0.9 L Monocytes # (Manual) Eosinophils # (Manual) 0.5 H Basophils # (Manual) PT INR Fibrinogen dRVVT Confirm Interp Factor V Activity POC ABG pH POC ABG pCO2 POC ABG pO2 ABG pO2 ABG HCO3 ABG Base Excess ABG Hemoglobin Oxyhemoglobin Sodium Potassium Chloride Carbon Dioxide 15 L BUN 72 H Creatinine 3.8 H Glucose POC Glucose Lactic Acid Calcium 6.0 L Phosphorus 4.60 H Magnesium 1.60 L Direct Bilirubin AST ALT Alkaline Phosphatase Lactate Dehydrogenase Troponin T C-Reactive Protein Total Protein Albumin Prealbumin Triglycerides Cholesterol LDL Cholesterol Direct HDL Cholesterol PTH Intact Urine pH Urine WBC (Auto) Urine Creatinine Urine Total Protein Fluid Total Protein Vancomycin Trough Rheumatoid Factor Complement C4 Miscellaneous Test Crossmatch 09/25/16 09/25/16 09/25/16 04:57 08:02 10:30 WBC RBC Hgb Hct MCV MCH MCHC RDW Plt Count Lymph % (Auto) [place] % (Auto) Lymph # [place] # Baso # Seg Neutrophils % Seg Neuts % (Manual) Lymphocytes % (Manual) Monocytes % (Manual) Eosinophils % (Manual) Basophils % (Manual) Nucleated RBC % Seg Neutrophils # Seg Neutrophils # Man Lymphocytes # (Manual) Monocytes # (Manual) Eosinophils # (Manual) Basophils # (Manual) PT INR Fibrinogen dRVVT Confirm Interp Factor V Activity POC ABG pH POC ABG pCO2 24.7 L POC ABG pO2 152 H ABG pO2 ABG HCO3 ABG Base Excess ABG Hemoglobin Oxyhemoglobin Sodium Potassium Chloride Carbon Dioxide BUN Creatinine Glucose POC Glucose 113 H Lactic Acid Calcium Phosphorus Magnesium Direct Bilirubin AST ALT Alkaline Phosphatase Lactate Dehydrogenase Troponin T C-Reactive Protein Total Protein Albumin Prealbumin Triglycerides Cholesterol LDL Cholesterol Direct HDL Cholesterol PTH Intact Urine pH Urine WBC (Auto) Urine Creatinine Urine Total Protein Fluid Total Protein Vancomycin Trough Rheumatoid Factor Complement C4 Miscellaneous Test Crossmatch See Detail 09/25/16 09/25/16 09/25/16 12:05 17:44 23:47 WBC RBC Hgb Hct MCV MCH MCHC RDW Plt Count Lymph % (Auto) [place] % (Auto) Lymph # [place] # Baso # Seg Neutrophils % Seg Neuts % (Manual) Lymphocytes % (Manual) Monocytes % (Manual) Eosinophils % (Manual) Basophils % (Manual) Nucleated RBC % Seg Neutrophils # Seg Neutrophils # Man Lymphocytes # (Manual) Monocytes # (Manual) Eosinophils # (Manual) Basophils # (Manual) PT INR Fibrinogen dRVVT Confirm Interp Factor V Activity POC ABG pH POC ABG pCO2 POC ABG pO2 ABG pO2 ABG HCO3 ABG Base Excess ABG Hemoglobin Oxyhemoglobin Sodium Potassium Chloride Carbon Dioxide BUN Creatinine Glucose POC Glucose 117 H 119 H 150 H Lactic Acid Calcium Phosphorus Magnesium Direct Bilirubin AST ALT Alkaline Phosphatase Lactate Dehydrogenase Troponin T C-Reactive Protein Total Protein Albumin Prealbumin Triglycerides Cholesterol LDL Cholesterol Direct HDL Cholesterol PTH Intact Urine pH Urine WBC (Auto) Urine Creatinine Urine Total Protein Fluid Total Protein Vancomycin Trough Rheumatoid Factor Complement C4 Miscellaneous Test Crossmatch 09/26/16 09/26/16 09/26/16 04:25 04:25 04:25 WBC RBC 2.65 L Hgb 7.4 L Hct 21.6 L MCV MCH MCHC RDW 22.5 H Plt Count Lymph % (Auto) [place] % (Auto) Lymph # [place] # Baso # Seg Neutrophils % Seg Neuts % (Manual) Lymphocytes % (Manual) 6.0 L Monocytes % (Manual) Eosinophils % (Manual) 11.0 H Basophils % (Manual) Nucleated RBC % Seg Neutrophils # Seg Neutrophils # Man Lymphocytes # (Manual) 0.4 L Monocytes # (Manual) Eosinophils # (Manual) 0.6 H Basophils # (Manual) PT INR Fibrinogen dRVVT Confirm Interp Factor V Activity POC ABG pH POC ABG pCO2 POC ABG pO2 ABG pO2 ABG HCO3 ABG Base Excess ABG Hemoglobin Oxyhemoglobin Sodium Potassium Chloride 97.0 L Carbon Dioxide 19 L BUN 43 H Creatinine 2.6 H Glucose 130 H POC Glucose Lactic Acid 4.40 H* Calcium 6.7 L Phosphorus Magnesium Direct Bilirubin AST ALT Alkaline Phosphatase Lactate Dehydrogenase Troponin T C-Reactive Protein Total Protein Albumin Prealbumin Triglycerides Cholesterol LDL Cholesterol Direct HDL Cholesterol PTH Intact Urine pH Urine WBC (Auto) Urine Creatinine Urine Total Protein Fluid Total Protein Vancomycin Trough Rheumatoid Factor Complement C4 Miscellaneous Test Crossmatch 09/26/16 09/26/16 09/26/16 05:20 11:44 12:12 WBC RBC Hgb Hct MCV MCH MCHC RDW Plt Count Lymph % (Auto) [place] % (Auto) Lymph # [place] # Baso # Seg Neutrophils % Seg Neuts % (Manual) Lymphocytes % (Manual) Monocytes % (Manual) Eosinophils % (Manual) Basophils % (Manual) Nucleated RBC % Seg Neutrophils # Seg Neutrophils # Man Lymphocytes # (Manual) Monocytes # (Manual) Eosinophils # (Manual) Basophils # (Manual) PT INR Fibrinogen dRVVT Confirm Interp Factor V Activity POC ABG pH POC ABG pCO2 27.0 L POC ABG pO2 69 L ABG pO2 ABG HCO3 ABG Base Excess ABG Hemoglobin Oxyhemoglobin Sodium Potassium Chloride Carbon Dioxide BUN Creatinine Glucose POC Glucose 121 H 128 H Lactic Acid Calcium Phosphorus Magnesium Direct Bilirubin AST ALT Alkaline Phosphatase Lactate Dehydrogenase Troponin T C-Reactive Protein Total Protein Albumin Prealbumin Triglycerides Cholesterol LDL Cholesterol Direct HDL Cholesterol PTH Intact Urine pH Urine WBC (Auto) Urine Creatinine Urine Total Protein Fluid Total Protein Vancomycin Trough Rheumatoid Factor Complement C4 Miscellaneous Test Crossmatch 09/26/16 09/26/16 09/27/16 18:31 23:40 08:20 WBC RBC Hgb Hct MCV MCH MCHC RDW Plt Count Lymph % (Auto) [place] % (Auto) Lymph # [place] # Baso # Seg Neutrophils % Seg Neuts % (Manual) Lymphocytes % (Manual) Monocytes % (Manual) Eosinophils % (Manual) Basophils % (Manual) Nucleated RBC % Seg Neutrophils # Seg Neutrophils # Man Lymphocytes # (Manual) Monocytes # (Manual) Eosinophils # (Manual) Basophils # (Manual) PT INR Fibrinogen dRVVT Confirm Interp Factor V Activity POC ABG pH POC ABG pCO2 POC ABG pO2 ABG pO2 ABG HCO3 ABG Base Excess ABG Hemoglobin Oxyhemoglobin Sodium Potassium Chloride Carbon Dioxide BUN Creatinine Glucose POC Glucose 120 H 133 H Lactic Acid 4.10 H* Calcium Phosphorus Magnesium Direct Bilirubin AST ALT Alkaline Phosphatase Lactate Dehydrogenase Troponin T C-Reactive Protein Total Protein Albumin Prealbumin Triglycerides Cholesterol LDL Cholesterol Direct HDL Cholesterol PTH Intact Urine pH Urine WBC (Auto) Urine Creatinine Urine Total Protein Fluid Total Protein Vancomycin Trough Rheumatoid Factor Complement C4 Miscellaneous Test Crossmatch 09/27/16 09/27/16 09/27/16 11:23 15:00 18:15 WBC RBC Hgb Hct MCV MCH MCHC RDW Plt Count Lymph % (Auto) [place] % (Auto) Lymph # [place] # Baso # Seg Neutrophils % Seg Neuts % (Manual) Lymphocytes % (Manual) Monocytes % (Manual) Eosinophils % (Manual) Basophils % (Manual) Nucleated RBC % Seg Neutrophils # Seg Neutrophils # Man Lymphocytes # (Manual) Monocytes # (Manual) Eosinophils # (Manual) Basophils # (Manual) PT INR Fibrinogen dRVVT Confirm Interp Factor V Activity POC ABG pH 7.459 H POC ABG pCO2 27.1 L POC ABG pO2 140 H ABG pO2 ABG HCO3 ABG Base Excess ABG Hemoglobin Oxyhemoglobin Sodium Potassium Chloride Carbon Dioxide BUN Creatinine Glucose POC Glucose 114 H 127 H Lactic Acid Calcium Phosphorus Magnesium Direct Bilirubin AST ALT Alkaline Phosphatase Lactate Dehydrogenase Troponin T C-Reactive Protein Total Protein Albumin Prealbumin Triglycerides Cholesterol LDL Cholesterol Direct HDL Cholesterol PTH Intact Urine pH Urine WBC (Auto) Urine Creatinine Urine Total Protein Fluid Total Protein Vancomycin Trough Rheumatoid Factor Complement C4 Miscellaneous Test Crossmatch 09/27/16 09/27/16 09/28/16 Unknown Unknown 03:45 WBC RBC 2.49 L Hgb 6.8 L Hct 20.7 L MCV MCH 27 L MCHC RDW 22.1 H Plt Count Lymph % (Auto) [place] % (Auto) Lymph # [place] # Baso # Seg Neutrophils % Seg Neuts % (Manual) 32.0 L Lymphocytes % (Manual) 12.0 L Monocytes % (Manual) 11.0 H Eosinophils % (Manual) 10.0 H Basophils % (Manual) Nucleated RBC % Seg Neutrophils # Seg Neutrophils # Man Lymphocytes # (Manual) 1.0 L Monocytes # (Manual) 0.9 H Eosinophils # (Manual) 0.8 H Basophils # (Manual) PT INR Fibrinogen dRVVT Confirm Interp Factor V Activity POC ABG pH POC ABG pCO2 POC ABG pO2 ABG pO2 ABG HCO3 ABG Base Excess ABG Hemoglobin Oxyhemoglobin Sodium 135 L 135 L Potassium 3.5 L Chloride 93.6 L 94.4 L Carbon Dioxide 17 L 21 L BUN 45 H 28 H Creatinine 3.3 H 2.5 H Glucose 106 H POC Glucose Lactic Acid Calcium 7.3 L 7.1 L Phosphorus Magnesium Direct Bilirubin AST ALT Alkaline Phosphatase Lactate Dehydrogenase Troponin T C-Reactive Protein Total Protein Albumin Prealbumin Triglycerides Cholesterol LDL Cholesterol Direct HDL Cholesterol PTH Intact Urine pH Urine WBC (Auto) Urine Creatinine Urine Total Protein Fluid Total Protein Vancomycin Trough Rheumatoid Factor Complement C4 Miscellaneous Test Crossmatch 09/28/16 09/28/16 09/28/16 03:45 07:25 11:58 WBC 13.3 H RBC 3.01 L Hgb 8.4 L Hct 25.0 L MCV MCH MCHC RDW 20.5 H Plt Count 128 L Lymph % (Auto) [place] % (Auto) Lymph # [place] # Baso # Seg Neutrophils % Seg Neuts % (Manual) Lymphocytes % (Manual) 7.0 L Monocytes % (Manual) Eosinophils % (Manual) 6.0 H Basophils % (Manual) Nucleated RBC % Seg Neutrophils # Seg Neutrophils # Man Lymphocytes # (Manual) 0.9 L Monocytes # (Manual) Eosinophils # (Manual) 0.8 H Basophils # (Manual) PT INR Fibrinogen dRVVT Confirm Interp Factor V Activity POC ABG pH POC ABG pCO2 POC ABG pO2 ABG pO2 ABG HCO3 ABG Base Excess ABG Hemoglobin Oxyhemoglobin Sodium Potassium Chloride Carbon Dioxide BUN Creatinine Glucose POC Glucose 121 H Lactic Acid 4.50 H* Calcium Phosphorus Magnesium Direct Bilirubin AST ALT Alkaline Phosphatase Lactate Dehydrogenase Troponin T C-Reactive Protein Total Protein Albumin Prealbumin Triglycerides Cholesterol LDL Cholesterol Direct HDL Cholesterol PTH Intact Urine pH Urine WBC (Auto) Urine Creatinine Urine Total Protein Fluid Total Protein Vancomycin Trough Rheumatoid Factor Complement C4 Miscellaneous Test Crossmatch 09/29/16 09/29/16 09/29/16 06:45 06:45 06:45 WBC 14.9 H RBC 2.74 L Hgb 7.6 L Hct 23.2 L MCV MCH MCHC RDW 20.5 H Plt Count 81 L Lymph % (Auto) [place] % (Auto) Lymph # [place] # Baso # Seg Neutrophils % Seg Neuts % (Manual) 81.0 H Lymphocytes % (Manual) 4.0 L Monocytes % (Manual) Eosinophils % (Manual) Basophils % (Manual) Nucleated RBC % Seg Neutrophils # Seg Neutrophils # Man 12.1 H Lymphocytes # (Manual) 0.6 L Monocytes # (Manual) Eosinophils # (Manual) Basophils # (Manual) PT INR Fibrinogen dRVVT Confirm Interp Factor V Activity POC ABG pH POC ABG pCO2 POC ABG pO2 ABG pO2 ABG HCO3 ABG Base Excess ABG Hemoglobin Oxyhemoglobin Sodium 133 L Potassium 3.4 L Chloride 92.5 L Carbon Dioxide 21 L BUN 33 H Creatinine 3.0 H Glucose POC Glucose Lactic Acid Calcium 6.6 L Phosphorus Magnesium 1.40 L Direct Bilirubin 0.9 H AST ALT Alkaline Phosphatase Lactate Dehydrogenase Troponin T C-Reactive Protein Total Protein 4.3 L Albumin 1.3 L Prealbumin Triglycerides Cholesterol LDL Cholesterol Direct HDL Cholesterol PTH Intact Urine pH Urine WBC (Auto) Urine Creatinine Urine Total Protein Fluid Total Protein Vancomycin Trough Rheumatoid Factor Complement C4 Miscellaneous Test Crossmatch 09/29/16 09/29/16 09/30/16 17:52 20:12 00:07 WBC RBC Hgb Hct MCV MCH MCHC RDW Plt Count Lymph % (Auto) [place] % (Auto) Lymph # [place] # Baso # Seg Neutrophils % Seg Neuts % (Manual) Lymphocytes % (Manual) Monocytes % (Manual) Eosinophils % (Manual) Basophils % (Manual) Nucleated RBC % Seg Neutrophils # Seg Neutrophils # Man Lymphocytes # (Manual) Monocytes # (Manual) Eosinophils # (Manual) Basophils # (Manual) PT INR Fibrinogen dRVVT Confirm Interp Factor V Activity POC ABG pH POC ABG pCO2 POC ABG pO2 ABG pO2 ABG HCO3 ABG Base Excess ABG Hemoglobin Oxyhemoglobin Sodium Potassium Chloride Carbon Dioxide BUN Creatinine Glucose POC Glucose 50 L 51 L Lactic Acid Calcium Phosphorus Magnesium Direct Bilirubin AST ALT Alkaline Phosphatase Lactate Dehydrogenase Troponin T 0.204 H* C-Reactive Protein Total Protein Albumin Prealbumin Triglycerides Cholesterol 31 L LDL Cholesterol Direct 4 L HDL Cholesterol 3 L PTH Intact Urine pH Urine WBC (Auto) Urine Creatinine Urine Total Protein Fluid Total Protein Vancomycin Trough Rheumatoid Factor Complement C4 Miscellaneous Test Crossmatch 09/30/16 09/30/16 09/30/16 01:30 05:15 06:10 WBC RBC Hgb Hct MCV MCH MCHC RDW Plt Count Lymph % (Auto) [place] % (Auto) Lymph # [place] # Baso # Seg Neutrophils % Seg Neuts % (Manual) Lymphocytes % (Manual) Monocytes % (Manual) Eosinophils % (Manual) Basophils % (Manual) Nucleated RBC % Seg Neutrophils # Seg Neutrophils # Man Lymphocytes # (Manual) Monocytes # (Manual) Eosinophils # (Manual) Basophils # (Manual) PT INR Fibrinogen dRVVT Confirm Interp Factor V Activity POC ABG pH POC ABG pCO2 POC ABG pO2 ABG pO2 ABG HCO3 ABG Base Excess ABG Hemoglobin Oxyhemoglobin Sodium 133 L Potassium 3.2 L Chloride 93.2 L Carbon Dioxide 19 L BUN 36 H Creatinine 3.2 H Glucose 104 H POC Glucose 167 H 146 H Lactic Acid Calcium 6.4 L Phosphorus Magnesium 1.60 L Direct Bilirubin AST ALT Alkaline Phosphatase Lactate Dehydrogenase Troponin T C-Reactive Protein Total Protein Albumin Prealbumin Triglycerides Cholesterol LDL Cholesterol Direct HDL Cholesterol PTH Intact Urine pH Urine WBC (Auto) Urine Creatinine Urine Total Protein Fluid Total Protein Vancomycin Trough Rheumatoid Factor Complement C4 Miscellaneous Test Crossmatch 09/30/16 09/30/16 09/30/16 11:26 13:39 18:38 WBC RBC Hgb Hct MCV MCH MCHC RDW Plt Count Lymph % (Auto) [place] % (Auto) Lymph # [place] # Baso # Seg Neutrophils % Seg Neuts % (Manual) Lymphocytes % (Manual) Monocytes % (Manual) Eosinophils % (Manual) Basophils % (Manual) Nucleated RBC % Seg Neutrophils # Seg Neutrophils # Man Lymphocytes # (Manual) Monocytes # (Manual) Eosinophils # (Manual) Basophils # (Manual) PT INR Fibrinogen dRVVT Confirm Interp Factor V Activity POC ABG pH 7.479 H POC ABG pCO2 29.8 L POC ABG pO2 117 H ABG pO2 ABG HCO3 ABG Base Excess ABG Hemoglobin Oxyhemoglobin Sodium Potassium Chloride Carbon Dioxide BUN Creatinine Glucose POC Glucose 140 H 122 H Lactic Acid Calcium Phosphorus Magnesium Direct Bilirubin AST ALT Alkaline Phosphatase Lactate Dehydrogenase Troponin T C-Reactive Protein Total Protein Albumin Prealbumin Triglycerides Cholesterol LDL Cholesterol Direct HDL Cholesterol PTH Intact Urine pH Urine WBC (Auto) Urine Creatinine Urine Total Protein Fluid Total Protein Vancomycin Trough Rheumatoid Factor Complement C4 Miscellaneous Test Crossmatch 10/01/16 10/01/16 10/01/16 06:00 06:00 12:37 WBC 12.6 H RBC 2.75 L Hgb 7.3 L Hct 23.3 L MCV MCH 27 L MCHC RDW 20.6 H Plt Count 72 L Lymph % (Auto) [place] % (Auto) Lymph # [place] # Baso # Seg Neutrophils % Seg Neuts % (Manual) 31.0 L Lymphocytes % (Manual) 8.0 L Monocytes % (Manual) Eosinophils % (Manual) Basophils % (Manual) Nucleated RBC % 3.0 H Seg Neutrophils # Seg Neutrophils # Man Lymphocytes # (Manual) 1.0 L Monocytes # (Manual) Eosinophils # (Manual) Basophils # (Manual) PT INR Fibrinogen dRVVT Confirm Interp Factor V Activity POC ABG pH POC ABG pCO2 POC ABG pO2 ABG pO2 ABG HCO3 ABG Base Excess ABG Hemoglobin Oxyhemoglobin Sodium 127 L Potassium Chloride 86.8 L Carbon Dioxide 20 L BUN 42 H Creatinine 3.5 H Glucose POC Glucose 65 L Lactic Acid Calcium 7.0 L Phosphorus Magnesium Direct Bilirubin AST ALT Alkaline Phosphatase Lactate Dehydrogenase Troponin T C-Reactive Protein Total Protein Albumin Prealbumin Triglycerides Cholesterol LDL Cholesterol Direct HDL Cholesterol PTH Intact Urine pH Urine WBC (Auto) Urine Creatinine Urine Total Protein Fluid Total Protein Vancomycin Trough Rheumatoid Factor Complement C4 Miscellaneous Test Crossmatch 10/01/16 10/01/16 10/02/16 17:39 23:32 00:59 WBC RBC Hgb Hct MCV MCH MCHC RDW Plt Count Lymph % (Auto) [place] % (Auto) Lymph # [place] # Baso # Seg Neutrophils % Seg Neuts % (Manual) Lymphocytes % (Manual) Monocytes % (Manual) Eosinophils % (Manual) Basophils % (Manual) Nucleated RBC % Seg Neutrophils # Seg Neutrophils # Man Lymphocytes # (Manual) Monocytes # (Manual) Eosinophils # (Manual) Basophils # (Manual) PT INR Fibrinogen dRVVT Confirm Interp Factor V Activity POC ABG pH POC ABG pCO2 POC ABG pO2 ABG pO2 ABG HCO3 ABG Base Excess ABG Hemoglobin Oxyhemoglobin Sodium Potassium Chloride Carbon Dioxide BUN Creatinine Glucose POC Glucose 107 H 52 L 145 H Lactic Acid Calcium Phosphorus Magnesium Direct Bilirubin AST ALT Alkaline Phosphatase Lactate Dehydrogenase Troponin T C-Reactive Protein Total Protein Albumin Prealbumin Triglycerides Cholesterol LDL Cholesterol Direct HDL Cholesterol PTH Intact Urine pH Urine WBC (Auto) Urine Creatinine Urine Total Protein Fluid Total Protein Vancomycin Trough Rheumatoid Factor Complement C4 Miscellaneous Test Crossmatch 10/02/16 10/02/16 10/02/16 10:30 10:50 10:50 WBC 14.7 H RBC 2.76 L Hgb 7.4 L Hct 23.6 L MCV MCH 27 L MCHC RDW 20.2 H Plt Count 79 L Lymph % (Auto) [place] % (Auto) Lymph # [place] # Baso # Seg Neutrophils % Seg Neuts % (Manual) 86.0 H Lymphocytes % (Manual) 6.0 L Monocytes % (Manual) Eosinophils % (Manual) Basophils % (Manual) Nucleated RBC % Seg Neutrophils # Seg Neutrophils # Man 12.6 H Lymphocytes # (Manual) 0.9 L Monocytes # (Manual) Eosinophils # (Manual) Basophils # (Manual) PT INR Fibrinogen dRVVT Confirm Interp Factor V Activity POC ABG pH 7.486 H POC ABG pCO2 30.1 L POC ABG pO2 108 H ABG pO2 ABG HCO3 ABG Base Excess ABG Hemoglobin Oxyhemoglobin Sodium 131 L Potassium 3.4 L Chloride 89.9 L Carbon Dioxide BUN 26 H Creatinine 2.6 H Glucose POC Glucose Lactic Acid Calcium 7.0 L Phosphorus Magnesium Direct Bilirubin AST ALT Alkaline Phosphatase Lactate Dehydrogenase Troponin T C-Reactive Protein Total Protein Albumin Prealbumin Triglycerides Cholesterol LDL Cholesterol Direct HDL Cholesterol PTH Intact Urine pH Urine WBC (Auto) Urine Creatinine Urine Total Protein Fluid Total Protein Vancomycin Trough Rheumatoid Factor Complement C4 Miscellaneous Test Crossmatch 10/02/16 10/03/16 10/03/16 23:45 00:45 05:10 WBC 12.9 H RBC 2.77 L Hgb 7.6 L Hct 23.7 L MCV MCH 27 L MCHC RDW 19.7 H Plt Count 89 L Lymph % (Auto) [place] % (Auto) Lymph # [place] # Baso # Seg Neutrophils % Seg Neuts % (Manual) Lymphocytes % (Manual) 8.0 L Monocytes % (Manual) Eosinophils % (Manual) Basophils % (Manual) Nucleated RBC % Seg Neutrophils # 11.9 H Seg Neutrophils # Man Lymphocytes # (Manual) 1.0 L Monocytes # (Manual) Eosinophils # (Manual) Basophils # (Manual) PT INR Fibrinogen dRVVT Confirm Interp Factor V Activity POC ABG pH POC ABG pCO2 POC ABG pO2 ABG pO2 ABG HCO3 ABG Base Excess ABG Hemoglobin Oxyhemoglobin Sodium Potassium Chloride Carbon Dioxide BUN Creatinine Glucose POC Glucose 55 L 199 H Lactic Acid Calcium Phosphorus Magnesium Direct Bilirubin AST ALT Alkaline Phosphatase Lactate Dehydrogenase Troponin T C-Reactive Protein Total Protein Albumin Prealbumin Triglycerides Cholesterol LDL Cholesterol Direct HDL Cholesterol PTH Intact Urine pH Urine WBC (Auto) Urine Creatinine Urine Total Protein Fluid Total Protein Vancomycin Trough Rheumatoid Factor Complement C4 Miscellaneous Test Crossmatch 10/03/16 10/03/16 10/03/16 05:10 12:14 13:18 WBC RBC Hgb Hct MCV MCH MCHC RDW Plt Count Lymph % (Auto) [place] % (Auto) Lymph # [place] # Baso # Seg Neutrophils % Seg Neuts % (Manual) Lymphocytes % (Manual) Monocytes % (Manual) Eosinophils % (Manual) Basophils % (Manual) Nucleated RBC % Seg Neutrophils # Seg Neutrophils # Man Lymphocytes # (Manual) Monocytes # (Manual) Eosinophils # (Manual) Basophils # (Manual) PT INR Fibrinogen dRVVT Confirm Interp Factor V Activity POC ABG pH POC ABG pCO2 POC ABG pO2 ABG pO2 ABG HCO3 ABG Base Excess ABG Hemoglobin Oxyhemoglobin Sodium 129 L Potassium 3.3 L Chloride 88.8 L Carbon Dioxide 20 L BUN 29 H Creatinine 2.8 H Glucose POC Glucose 68 L 127 H Lactic Acid Calcium 7.2 L Phosphorus Magnesium Direct Bilirubin AST ALT Alkaline Phosphatase Lactate Dehydrogenase Troponin T C-Reactive Protein Total Protein Albumin Prealbumin Triglycerides Cholesterol LDL Cholesterol Direct HDL Cholesterol PTH Intact Urine pH Urine WBC (Auto) Urine Creatinine Urine Total Protein Fluid Total Protein Vancomycin Trough Rheumatoid Factor Complement C4 Miscellaneous Test Crossmatch 10/03/16 10/03/16 10/03/16 14:42 18:21 19:09 WBC RBC Hgb Hct MCV MCH MCHC RDW Plt Count Lymph % (Auto) [place] % (Auto) Lymph # [place] # Baso # Seg Neutrophils % Seg Neuts % (Manual) Lymphocytes % (Manual) Monocytes % (Manual) Eosinophils % (Manual) Basophils % (Manual) Nucleated RBC % Seg Neutrophils # Seg Neutrophils # Man Lymphocytes # (Manual) Monocytes # (Manual) Eosinophils # (Manual) Basophils # (Manual) PT INR Fibrinogen dRVVT Confirm Interp Factor V Activity POC ABG pH 7.499 H POC ABG pCO2 28.4 L POC ABG pO2 44 L ABG pO2 ABG HCO3 ABG Base Excess ABG Hemoglobin Oxyhemoglobin Sodium Potassium Chloride Carbon Dioxide BUN Creatinine Glucose POC Glucose 64 L 205 H Lactic Acid Calcium Phosphorus Magnesium Direct Bilirubin AST ALT Alkaline Phosphatase Lactate Dehydrogenase Troponin T C-Reactive Protein Total Protein Albumin Prealbumin Triglycerides Cholesterol LDL Cholesterol Direct HDL Cholesterol PTH Intact Urine pH Urine WBC (Auto) Urine Creatinine Urine Total Protein Fluid Total Protein Vancomycin Trough Rheumatoid Factor Complement C4 Miscellaneous Test Crossmatch 10/03/16 10/04/16 10/04/16 23:33 04:18 06:30 WBC RBC 2.54 L Hgb 7.1 L Hct 21.7 L MCV MCH MCHC RDW 19.5 H Plt Count 76 L Lymph % (Auto) [place] % (Auto) Lymph # [place] # Baso # Seg Neutrophils % Seg Neuts % (Manual) 88.0 H Lymphocytes % (Manual) 6.0 L Monocytes % (Manual) Eosinophils % (Manual) Basophils % (Manual) Nucleated RBC % Seg Neutrophils # Seg Neutrophils # Man 8.8 H Lymphocytes # (Manual) 0.6 L Monocytes # (Manual) Eosinophils # (Manual) Basophils # (Manual) PT INR Fibrinogen dRVVT Confirm Interp Factor V Activity POC ABG pH 7.461 H POC ABG pCO2 33.6 L POC ABG pO2 211 H ABG pO2 ABG HCO3 ABG Base Excess ABG Hemoglobin Oxyhemoglobin Sodium Potassium Chloride Carbon Dioxide BUN Creatinine Glucose POC Glucose 136 H Lactic Acid Calcium Phosphorus Magnesium Direct Bilirubin AST ALT Alkaline Phosphatase Lactate Dehydrogenase Troponin T C-Reactive Protein Total Protein Albumin Prealbumin Triglycerides Cholesterol LDL Cholesterol Direct HDL Cholesterol PTH Intact Urine pH Urine WBC (Auto) Urine Creatinine Urine Total Protein Fluid Total Protein Vancomycin Trough Rheumatoid Factor Complement C4 Miscellaneous Test Crossmatch 10/04/16 10/04/16 10/04/16 06:30 11:45 17:54 WBC RBC Hgb Hct MCV MCH MCHC RDW Plt Count Lymph % (Auto) [place] % (Auto) Lymph # [place] # Baso # Seg Neutrophils % Seg Neuts % (Manual) Lymphocytes % (Manual) Monocytes % (Manual) Eosinophils % (Manual) Basophils % (Manual) Nucleated RBC % Seg Neutrophils # Seg Neutrophils # Man Lymphocytes # (Manual) Monocytes # (Manual) Eosinophils # (Manual) Basophils # (Manual) PT INR Fibrinogen dRVVT Confirm Interp Factor V Activity POC ABG pH POC ABG pCO2 POC ABG pO2 ABG pO2 ABG HCO3 ABG Base Excess ABG Hemoglobin Oxyhemoglobin Sodium 128 L Potassium Chloride 87.4 L Carbon Dioxide 20 L BUN 34 H Creatinine 2.9 H Glucose 127 H POC Glucose 158 H 160 H Lactic Acid Calcium 7.4 L Phosphorus Magnesium Direct Bilirubin AST ALT Alkaline Phosphatase Lactate Dehydrogenase Troponin T C-Reactive Protein Total Protein Albumin Prealbumin Triglycerides Cholesterol LDL Cholesterol Direct HDL Cholesterol PTH Intact Urine pH Urine WBC (Auto) Urine Creatinine Urine Total Protein Fluid Total Protein Vancomycin Trough Rheumatoid Factor Complement C4 Miscellaneous Test Crossmatch 10/04/16 10/05/16 10/05/16 23:25 04:30 05:00 WBC RBC 2.64 L Hgb 7.5 L Hct 22.6 L MCV MCH MCHC RDW 19.3 H Plt Count 80 L Lymph % (Auto) [place] % (Auto) Lymph # [place] # Baso # Seg Neutrophils % Seg Neuts % (Manual) Lymphocytes % (Manual) 12.0 L Monocytes % (Manual) Eosinophils % (Manual) Basophils % (Manual) Nucleated RBC % Seg Neutrophils # Seg Neutrophils # Man Lymphocytes # (Manual) Monocytes # (Manual) Eosinophils # (Manual) Basophils # (Manual) PT INR Fibrinogen dRVVT Confirm Interp Factor V Activity POC ABG pH 7.475 H POC ABG pCO2 33.3 L POC ABG pO2 140 H ABG pO2 ABG HCO3 ABG Base Excess ABG Hemoglobin Oxyhemoglobin Sodium Potassium Chloride Carbon Dioxide BUN Creatinine Glucose POC Glucose 141 H Lactic Acid Calcium Phosphorus Magnesium Direct Bilirubin AST ALT Alkaline Phosphatase Lactate Dehydrogenase Troponin T C-Reactive Protein Total Protein Albumin Prealbumin Triglycerides Cholesterol LDL Cholesterol Direct HDL Cholesterol PTH Intact Urine pH Urine WBC (Auto) Urine Creatinine Urine Total Protein Fluid Total Protein Vancomycin Trough Rheumatoid Factor Complement C4 Miscellaneous Test Crossmatch 10/05/16 10/05/16 10/05/16 05:00 05:09 12:58 WBC RBC Hgb Hct MCV MCH MCHC RDW Plt Count Lymph % (Auto) [place] % (Auto) Lymph # [place] # Baso # Seg Neutrophils % Seg Neuts % (Manual) Lymphocytes % (Manual) Monocytes % (Manual) Eosinophils % (Manual) Basophils % (Manual) Nucleated RBC % Seg Neutrophils # Seg Neutrophils # Man Lymphocytes # (Manual) Monocytes # (Manual) Eosinophils # (Manual) Basophils # (Manual) PT INR Fibrinogen dRVVT Confirm Interp Factor V Activity POC ABG pH POC ABG pCO2 POC ABG pO2 ABG pO2 ABG HCO3 ABG Base Excess ABG Hemoglobin Oxyhemoglobin Sodium 131 L Potassium Chloride 94.0 L Carbon Dioxide 20 L BUN 22 H Creatinine 2.0 H Glucose 123 H POC Glucose 166 H 179 H Lactic Acid Calcium 7.7 L Phosphorus 2.20 L D Magnesium Direct Bilirubin AST ALT Alkaline Phosphatase Lactate Dehydrogenase Troponin T C-Reactive Protein Total Protein Albumin Prealbumin Triglycerides Cholesterol LDL Cholesterol Direct HDL Cholesterol PTH Intact Urine pH Urine WBC (Auto) Urine Creatinine Urine Total Protein Fluid Total Protein Vancomycin Trough Rheumatoid Factor Complement C4 Miscellaneous Test Crossmatch 10/05/16 10/05/16 10/05/16 15:50 18:53 23:12 WBC RBC Hgb Hct MCV MCH MCHC RDW Plt Count Lymph % (Auto) [place] % (Auto) Lymph # [place] # Baso # Seg Neutrophils % Seg Neuts % (Manual) Lymphocytes % (Manual) Monocytes % (Manual) Eosinophils % (Manual) Basophils % (Manual) Nucleated RBC % Seg Neutrophils # Seg Neutrophils # Man Lymphocytes # (Manual) Monocytes # (Manual) Eosinophils # (Manual) Basophils # (Manual) PT INR Fibrinogen dRVVT Confirm Interp Factor V Activity POC ABG pH POC ABG pCO2 POC ABG pO2 ABG pO2 ABG HCO3 ABG Base Excess ABG Hemoglobin Oxyhemoglobin Sodium Potassium Chloride Carbon Dioxide BUN Creatinine Glucose POC Glucose 150 H 164 H Lactic Acid Calcium Phosphorus Magnesium Direct Bilirubin AST ALT Alkaline Phosphatase Lactate Dehydrogenase Troponin T C-Reactive Protein Total Protein Albumin Prealbumin Triglycerides Cholesterol LDL Cholesterol Direct HDL Cholesterol PTH Intact Urine pH Urine WBC (Auto) Urine Creatinine Urine Total Protein Fluid Total Protein Vancomycin Trough Rheumatoid Factor Complement C4 Miscellaneous Test Crossmatch See Detail 10/06/16 10/06/16 10/06/16 03:50 03:50 04:53 WBC RBC 3.00 L Hgb 8.6 L Hct 25.8 L MCV MCH MCHC RDW 17.9 H Plt Count 65 L Lymph % (Auto) [place] % (Auto) Lymph # [place] # Baso # Seg Neutrophils % Seg Neuts % (Manual) 30.0 L Lymphocytes % (Manual) 5.0 L Monocytes % (Manual) Eosinophils % (Manual) Basophils % (Manual) Nucleated RBC % Seg Neutrophils # Seg Neutrophils # Man Lymphocytes # (Manual) 0.4 L Monocytes # (Manual) Eosinophils # (Manual) Basophils # (Manual) PT INR Fibrinogen dRVVT Confirm Interp Factor V Activity POC ABG pH 7.310 L POC ABG pCO2 49.0 H POC ABG pO2 ABG pO2 ABG HCO3 ABG Base Excess ABG Hemoglobin Oxyhemoglobin Sodium 133 L Potassium Chloride 95.9 L Carbon Dioxide BUN 26 H Creatinine 2.0 H Glucose 116 H POC Glucose Lactic Acid Calcium 7.8 L Phosphorus Magnesium Direct Bilirubin AST ALT Alkaline Phosphatase Lactate Dehydrogenase Troponin T C-Reactive Protein Total Protein Albumin Prealbumin Triglycerides Cholesterol LDL Cholesterol Direct HDL Cholesterol PTH Intact Urine pH Urine WBC (Auto) Urine Creatinine Urine Total Protein Fluid Total Protein Vancomycin Trough Rheumatoid Factor Complement C4 Miscellaneous Test Crossmatch 10/06/16 10/06/16 10/06/16 05:23 11:52 18:34 WBC RBC Hgb Hct MCV MCH MCHC RDW Plt Count Lymph % (Auto) [place] % (Auto) Lymph # [place] # Baso # Seg Neutrophils % Seg Neuts % (Manual) Lymphocytes % (Manual) Monocytes % (Manual) Eosinophils % (Manual) Basophils % (Manual) Nucleated RBC % Seg Neutrophils # Seg Neutrophils # Man Lymphocytes # (Manual) Monocytes # (Manual) Eosinophils # (Manual) Basophils # (Manual) PT INR Fibrinogen dRVVT Confirm Interp Factor V Activity POC ABG pH POC ABG pCO2 POC ABG pO2 ABG pO2 ABG HCO3 ABG Base Excess ABG Hemoglobin Oxyhemoglobin Sodium Potassium Chloride Carbon Dioxide BUN Creatinine Glucose POC Glucose 126 H 116 H 129 H Lactic Acid Calcium Phosphorus Magnesium Direct Bilirubin AST ALT Alkaline Phosphatase Lactate Dehydrogenase Troponin T C-Reactive Protein Total Protein Albumin Prealbumin Triglycerides Cholesterol LDL Cholesterol Direct HDL Cholesterol PTH Intact Urine pH Urine WBC (Auto) Urine Creatinine Urine Total Protein Fluid Total Protein Vancomycin Trough Rheumatoid Factor Complement C4 Miscellaneous Test Crossmatch 10/07/16 10/07/16 10/07/16 03:45 05:00 10:00 WBC 17.0 H RBC 2.68 L Hgb 7.3 L Hct 25.3 L MCV MCH 27 L MCHC 29 L RDW 19.6 H Plt Count 74 L Lymph % (Auto) [place] % (Auto) Lymph # [place] # Baso # Seg Neutrophils % Seg Neuts % (Manual) Lymphocytes % (Manual) 12.0 L Monocytes % (Manual) Eosinophils % (Manual) Basophils % (Manual) Nucleated RBC % 4.0 H Seg Neutrophils # Seg Neutrophils # Man 10.7 H Lymphocytes # (Manual) Monocytes # (Manual) Eosinophils # (Manual) Basophils # (Manual) PT INR Fibrinogen dRVVT Confirm Interp Factor V Activity POC ABG pH POC ABG pCO2 POC ABG pO2 ABG pO2 ABG HCO3 ABG Base Excess ABG Hemoglobin Oxyhemoglobin Sodium 130 L Potassium 3.2 L Chloride 93.9 L Carbon Dioxide 20 L BUN 44 H Creatinine 2.7 H Glucose 129 H POC Glucose Lactic Acid Calcium 7.4 L Phosphorus Magnesium Direct Bilirubin AST ALT 6 L Alkaline Phosphatase 195 H Lactate Dehydrogenase Troponin T C-Reactive Protein Total Protein 4.9 L Albumin 1.0 L Prealbumin Triglycerides Cholesterol LDL Cholesterol Direct HDL Cholesterol PTH Intact Urine pH Urine WBC (Auto) Urine Creatinine Urine Total Protein Fluid Total Protein Vancomycin Trough Rheumatoid Factor Complement C4 Miscellaneous Test Flexitest 1 H Crossmatch 10/07/16 10/07/16 10/07/16 10:00 11:24 18:10 WBC RBC Hgb Hct MCV MCH MCHC RDW Plt Count Lymph % (Auto) [place] % (Auto) Lymph # [place] # Baso # Seg Neutrophils % Seg Neuts % (Manual) Lymphocytes % (Manual) Monocytes % (Manual) Eosinophils % (Manual) Basophils % (Manual) Nucleated RBC % Seg Neutrophils # Seg Neutrophils # Man Lymphocytes # (Manual) Monocytes # (Manual) Eosinophils # (Manual) Basophils # (Manual) PT INR Fibrinogen dRVVT Confirm Interp Factor V Activity POC ABG pH POC ABG pCO2 POC ABG pO2 ABG pO2 ABG HCO3 ABG Base Excess ABG Hemoglobin Oxyhemoglobin Sodium Potassium Chloride Carbon Dioxide BUN Creatinine Glucose POC Glucose 116 H 130 H Lactic Acid Calcium Phosphorus Magnesium Direct Bilirubin AST ALT Alkaline Phosphatase Lactate Dehydrogenase Troponin T C-Reactive Protein 19.40 H Total Protein Albumin Prealbumin Triglycerides Cholesterol LDL Cholesterol Direct HDL Cholesterol PTH Intact Urine pH Urine WBC (Auto) Urine Creatinine Urine Total Protein Fluid Total Protein Vancomycin Trough Rheumatoid Factor Complement C4 Miscellaneous Test Crossmatch 10/07/16 10/08/16 10/08/16 18:30 00:00 04:00 WBC RBC Hgb Hct MCV MCH MCHC RDW Plt Count Lymph % (Auto) [place] % (Auto) Lymph # [place] # Baso # Seg Neutrophils % Seg Neuts % (Manual) Lymphocytes % (Manual) Monocytes % (Manual) Eosinophils % (Manual) Basophils % (Manual) Nucleated RBC % Seg Neutrophils # Seg Neutrophils # Man Lymphocytes # (Manual) Monocytes # (Manual) Eosinophils # (Manual) Basophils # (Manual) PT INR Fibrinogen dRVVT Confirm Interp Factor V Activity POC ABG pH POC ABG pCO2 POC ABG pO2 ABG pO2 ABG HCO3 ABG Base Excess ABG Hemoglobin Oxyhemoglobin Sodium 132 L Potassium 3.3 L Chloride 93.6 L Carbon Dioxide 17 L BUN 59 H Creatinine 2.7 H Glucose 121 H POC Glucose 122 H Lactic Acid Calcium 7.6 L Phosphorus Magnesium Direct Bilirubin AST ALT Alkaline Phosphatase Lactate Dehydrogenase Troponin T C-Reactive Protein Total Protein Albumin Prealbumin Triglycerides Cholesterol LDL Cholesterol Direct HDL Cholesterol PTH Intact Urine pH Urine WBC (Auto) > 182.0 H Urine Creatinine Urine Total Protein Fluid Total Protein Vancomycin Trough Rheumatoid Factor Complement C4 Miscellaneous Test Crossmatch 10/08/16 10/08/16 10/08/16 04:30 05:30 11:51 WBC RBC 5.15 H Hgb 14.4 H D Hct 44.5 H D MCV MCH MCHC RDW 19.5 H Plt Count 56 L Lymph % (Auto) [place] % (Auto) Lymph # [place] # Baso # Seg Neutrophils % Seg Neuts % (Manual) 24.0 L Lymphocytes % (Manual) 8.0 L Monocytes % (Manual) Eosinophils % (Manual) Basophils % (Manual) Nucleated RBC % 9.0 H Seg Neutrophils # Seg Neutrophils # Man Lymphocytes # (Manual) 0.7 L Monocytes # (Manual) Eosinophils # (Manual) Basophils # (Manual) PT INR Fibrinogen dRVVT Confirm Interp Factor V Activity POC ABG pH POC ABG pCO2 POC ABG pO2 ABG pO2 ABG HCO3 ABG Base Excess ABG Hemoglobin Oxyhemoglobin Sodium Potassium Chloride Carbon Dioxide BUN Creatinine Glucose POC Glucose 125 H 150 H Lactic Acid Calcium Phosphorus Magnesium Direct Bilirubin AST ALT Alkaline Phosphatase Lactate Dehydrogenase Troponin T C-Reactive Protein Total Protein Albumin Prealbumin Triglycerides Cholesterol LDL Cholesterol Direct HDL Cholesterol PTH Intact Urine pH Urine WBC (Auto) Urine Creatinine Urine Total Protein Fluid Total Protein Vancomycin Trough Rheumatoid Factor Complement C4 Miscellaneous Test Crossmatch 10/08/16 10/08/16 10/08/16 12:49 17:07 19:30 WBC RBC Hgb 7.1 L D Hct 22.4 L D MCV MCH MCHC RDW Plt Count Lymph % (Auto) [place] % (Auto) Lymph # [place] # Baso # Seg Neutrophils % Seg Neuts % (Manual) Lymphocytes % (Manual) Monocytes % (Manual) Eosinophils % (Manual) Basophils % (Manual) Nucleated RBC % Seg Neutrophils # Seg Neutrophils # Man Lymphocytes # (Manual) Monocytes # (Manual) Eosinophils # (Manual) Basophils # (Manual) PT INR Fibrinogen dRVVT Confirm Interp Factor V Activity POC ABG pH POC ABG pCO2 28.2 L POC ABG pO2 111 H ABG pO2 ABG HCO3 ABG Base Excess ABG Hemoglobin Oxyhemoglobin Sodium Potassium Chloride Carbon Dioxide BUN Creatinine Glucose POC Glucose 145 H Lactic Acid Calcium Phosphorus Magnesium Direct Bilirubin AST ALT Alkaline Phosphatase Lactate Dehydrogenase Troponin T C-Reactive Protein Total Protein Albumin Prealbumin Triglycerides Cholesterol LDL Cholesterol Direct HDL Cholesterol PTH Intact Urine pH Urine WBC (Auto) Urine Creatinine Urine Total Protein Fluid Total Protein Vancomycin Trough Rheumatoid Factor Complement C4 Miscellaneous Test Crossmatch 10/08/16 10/09/16 10/09/16 19:30 03:45 03:45 WBC 12.6 H RBC 2.36 L Hgb 6.7 L Hct 21.1 L MCV MCH MCHC RDW 19.5 H Plt Count 75 L Lymph % (Auto) [place] % (Auto) Lymph # [place] # Baso # Seg Neutrophils % Seg Neuts % (Manual) Lymphocytes % (Manual) Monocytes % (Manual) 10.0 H Eosinophils % (Manual) Basophils % (Manual) Nucleated RBC % 3.0 H Seg Neutrophils # Seg Neutrophils # Man Lymphocytes # (Manual) Monocytes # (Manual) 1.3 H Eosinophils # (Manual) Basophils # (Manual) PT 18.0 H INR 1.41 H Fibrinogen dRVVT Confirm Interp Factor V Activity POC ABG pH POC ABG pCO2 POC ABG pO2 ABG pO2 ABG HCO3 ABG Base Excess ABG Hemoglobin Oxyhemoglobin Sodium 135 L Potassium Chloride Carbon Dioxide 17 L BUN 81 H Creatinine 3.2 H Glucose 109 H POC Glucose Lactic Acid Calcium 7.4 L Phosphorus 4.60 H D Magnesium Direct Bilirubin AST ALT Alkaline Phosphatase Lactate Dehydrogenase Troponin T C-Reactive Protein Total Protein Albumin Prealbumin Triglycerides Cholesterol LDL Cholesterol Direct HDL Cholesterol PTH Intact Urine pH Urine WBC (Auto) Urine Creatinine Urine Total Protein Fluid Total Protein Vancomycin Trough Rheumatoid Factor Complement C4 Miscellaneous Test Crossmatch 10/09/16 10/09/16 10/09/16 03:45 05:14 07:20 WBC RBC Hgb Hct MCV MCH MCHC RDW Plt Count Lymph % (Auto) [place] % (Auto) Lymph # [place] # Baso # Seg Neutrophils % Seg Neuts % (Manual) Lymphocytes % (Manual) Monocytes % (Manual) Eosinophils % (Manual) Basophils % (Manual) Nucleated RBC % Seg Neutrophils # Seg Neutrophils # Man Lymphocytes # (Manual) Monocytes # (Manual) Eosinophils # (Manual) Basophils # (Manual) PT 19.0 H INR 1.51 H Fibrinogen dRVVT Confirm Interp Factor V Activity POC ABG pH POC ABG pCO2 POC ABG pO2 ABG pO2 ABG HCO3 ABG Base Excess ABG Hemoglobin Oxyhemoglobin Sodium Potassium Chloride Carbon Dioxide BUN Creatinine Glucose POC Glucose 151 H Lactic Acid Calcium Phosphorus Magnesium Direct Bilirubin AST ALT Alkaline Phosphatase Lactate Dehydrogenase Troponin T C-Reactive Protein Total Protein Albumin Prealbumin Triglycerides Cholesterol LDL Cholesterol Direct HDL Cholesterol PTH Intact Urine pH Urine WBC (Auto) Urine Creatinine Urine Total Protein Fluid Total Protein Vancomycin Trough Rheumatoid Factor Complement C4 Miscellaneous Test Crossmatch See Detail 10/09/16 10/09/16 10/09/16 11:46 16:20 16:43 WBC RBC Hgb 7.2 L Hct 22.2 L MCV MCH MCHC RDW Plt Count Lymph % (Auto) [place] % (Auto) Lymph # [place] # Baso # Seg Neutrophils % Seg Neuts % (Manual) Lymphocytes % (Manual) Monocytes % (Manual) Eosinophils % (Manual) Basophils % (Manual) Nucleated RBC % Seg Neutrophils # Seg Neutrophils # Man Lymphocytes # (Manual) Monocytes # (Manual) Eosinophils # (Manual) Basophils # (Manual) PT INR Fibrinogen dRVVT Confirm Interp Factor V Activity POC ABG pH POC ABG pCO2 POC ABG pO2 ABG pO2 ABG HCO3 ABG Base Excess ABG Hemoglobin Oxyhemoglobin Sodium Potassium Chloride Carbon Dioxide BUN Creatinine Glucose POC Glucose 133 H 141 H Lactic Acid Calcium Phosphorus Magnesium Direct Bilirubin AST ALT Alkaline Phosphatase Lactate Dehydrogenase Troponin T C-Reactive Protein Total Protein Albumin Prealbumin Triglycerides Cholesterol LDL Cholesterol Direct HDL Cholesterol PTH Intact Urine pH Urine WBC (Auto) Urine Creatinine Urine Total Protein Fluid Total Protein Vancomycin Trough Rheumatoid Factor Complement C4 Miscellaneous Test Crossmatch 10/10/16 10/10/16 10/10/16 05:00 05:00 11:19 WBC 18.5 H RBC 2.19 L Hgb 6.4 L Hct 19.6 L* MCV MCH MCHC RDW 19.3 H Plt Count 93 L Lymph % (Auto) [place] % (Auto) Lymph # [place] # Baso # Seg Neutrophils % Seg Neuts % (Manual) Lymphocytes % (Manual) 10.0 L Monocytes % (Manual) Eosinophils % (Manual) Basophils % (Manual) Nucleated RBC % 4.0 H Seg Neutrophils # Seg Neutrophils # Man 11.3 H Lymphocytes # (Manual) Monocytes # (Manual) Eosinophils # (Manual) Basophils # (Manual) PT INR Fibrinogen dRVVT Confirm Interp Factor V Activity POC ABG pH POC ABG pCO2 POC ABG pO2 ABG pO2 ABG HCO3 ABG Base Excess ABG Hemoglobin Oxyhemoglobin Sodium Potassium 5.7 H D Chloride Carbon Dioxide 16 L BUN 94 H Creatinine 3.1 H Glucose 131 H POC Glucose 153 H Lactic Acid Calcium 8.2 L Phosphorus 5.10 H Magnesium 2.40 H Direct Bilirubin 0.3 H AST ALT < 5 L Alkaline Phosphatase 319 H Lactate Dehydrogenase Troponin T C-Reactive Protein Total Protein 5.1 L Albumin 1.0 L Prealbumin Triglycerides Cholesterol LDL Cholesterol Direct HDL Cholesterol PTH Intact Urine pH Urine WBC (Auto) Urine Creatinine Urine Total Protein Fluid Total Protein Vancomycin Trough Rheumatoid Factor Complement C4 Miscellaneous Test Crossmatch 10/10/16 10/10/16 10/11/16 17:50 23:30 04:15 WBC RBC Hgb Hct MCV MCH MCHC RDW Plt Count Lymph % (Auto) [place] % (Auto) Lymph # [place] # Baso # Seg Neutrophils % Seg Neuts % (Manual) Lymphocytes % (Manual) Monocytes % (Manual) Eosinophils % (Manual) Basophils % (Manual) Nucleated RBC % Seg Neutrophils # Seg Neutrophils # Man Lymphocytes # (Manual) Monocytes # (Manual) Eosinophils # (Manual) Basophils # (Manual) PT INR Fibrinogen dRVVT Confirm Interp Factor V Activity POC ABG pH POC ABG pCO2 POC ABG pO2 ABG pO2 ABG HCO3 ABG Base Excess ABG Hemoglobin Oxyhemoglobin Sodium Potassium Chloride 96.4 L Carbon Dioxide 21 L BUN 57 H Creatinine 2.1 H Glucose 151 H POC Glucose 146 H 141 H Lactic Acid Calcium 8.3 L Phosphorus Magnesium Direct Bilirubin AST ALT Alkaline Phosphatase Lactate Dehydrogenase Troponin T C-Reactive Protein Total Protein Albumin Prealbumin Triglycerides Cholesterol LDL Cholesterol Direct HDL Cholesterol PTH Intact Urine pH Urine WBC (Auto) Urine Creatinine Urine Total Protein Fluid Total Protein Vancomycin Trough Rheumatoid Factor Complement C4 Miscellaneous Test Crossmatch 10/11/16 10/11/16 10/11/16 04:15 04:15 05:30 WBC 28.3 H RBC 3.12 L Hgb 9.3 L Hct 28.7 L D MCV MCH MCHC RDW 17.7 H Plt Count 128 L Lymph % (Auto) [place] % (Auto) Lymph # [place] # Baso # Seg Neutrophils % Seg Neuts % (Manual) Lymphocytes % (Manual) Monocytes % (Manual) Eosinophils % (Manual) Basophils % (Manual) Nucleated RBC % Seg Neutrophils # Seg Neutrophils # Man Lymphocytes # (Manual) Monocytes # (Manual) Eosinophils # (Manual) Basophils # (Manual) PT INR Fibrinogen dRVVT Confirm Interp Factor V Activity POC ABG pH POC ABG pCO2 POC ABG pO2 ABG pO2 ABG HCO3 ABG Base Excess ABG Hemoglobin Oxyhemoglobin Sodium Potassium Chloride Carbon Dioxide BUN Creatinine Glucose POC Glucose 167 H Lactic Acid Calcium Phosphorus Magnesium Direct Bilirubin AST ALT Alkaline Phosphatase Lactate Dehydrogenase Troponin T C-Reactive Protein 15.80 H Total Protein Albumin Prealbumin Triglycerides Cholesterol LDL Cholesterol Direct HDL Cholesterol PTH Intact Urine pH Urine WBC (Auto) Urine Creatinine Urine Total Protein Fluid Total Protein Vancomycin Trough Rheumatoid Factor Complement C4 Miscellaneous Test Crossmatch 10/11/16 10/11/16 10/11/16 11:40 15:49 23:57 WBC RBC Hgb Hct MCV MCH MCHC RDW Plt Count Lymph % (Auto) [place] % (Auto) Lymph # [place] # Baso # Seg Neutrophils % Seg Neuts % (Manual) Lymphocytes % (Manual) Monocytes % (Manual) Eosinophils % (Manual) Basophils % (Manual) Nucleated RBC % Seg Neutrophils # Seg Neutrophils # Man Lymphocytes # (Manual) Monocytes # (Manual) Eosinophils # (Manual) Basophils # (Manual) PT INR Fibrinogen dRVVT Confirm Interp Factor V Activity POC ABG pH POC ABG pCO2 POC ABG pO2 ABG pO2 ABG HCO3 ABG Base Excess ABG Hemoglobin Oxyhemoglobin Sodium Potassium Chloride Carbon Dioxide BUN Creatinine Glucose POC Glucose 139 H 168 H 161 H Lactic Acid Calcium Phosphorus Magnesium Direct Bilirubin AST ALT Alkaline Phosphatase Lactate Dehydrogenase Troponin T C-Reactive Protein Total Protein Albumin Prealbumin Triglycerides Cholesterol LDL Cholesterol Direct HDL Cholesterol PTH Intact Urine pH Urine WBC (Auto) Urine Creatinine Urine Total Protein Fluid Total Protein Vancomycin Trough Rheumatoid Factor Complement C4 Miscellaneous Test Crossmatch 10/12/16 10/12/16 10/12/16 04:40 04:40 05:44 WBC 22.5 H RBC 2.88 L Hgb 8.8 L Hct 26.8 L MCV MCH MCHC RDW 17.8 H Plt Count Lymph % (Auto) [place] % (Auto) Lymph # [place] # Baso # Seg Neutrophils % Seg Neuts % (Manual) Lymphocytes % (Manual) Monocytes % (Manual) Eosinophils % (Manual) Basophils % (Manual) Nucleated RBC % Seg Neutrophils # Seg Neutrophils # Man Lymphocytes # (Manual) Monocytes # (Manual) Eosinophils # (Manual) Basophils # (Manual) PT INR Fibrinogen dRVVT Confirm Interp Factor V Activity POC ABG pH POC ABG pCO2 POC ABG pO2 ABG pO2 ABG HCO3 ABG Base Excess ABG Hemoglobin Oxyhemoglobin Sodium 134 L Potassium Chloride 93.0 L Carbon Dioxide BUN 74 H Creatinine 2.5 H Glucose 137 H POC Glucose 158 H Lactic Acid Calcium 8.2 L Phosphorus Magnesium Direct Bilirubin AST ALT Alkaline Phosphatase Lactate Dehydrogenase Troponin T C-Reactive Protein Total Protein Albumin Prealbumin Triglycerides Cholesterol LDL Cholesterol Direct HDL Cholesterol PTH Intact Urine pH Urine WBC (Auto) Urine Creatinine Urine Total Protein Fluid Total Protein Vancomycin Trough Rheumatoid Factor Complement C4 Miscellaneous Test Crossmatch 10/12/16 10/12/16 10/12/16 12:27 18:18 23:46 WBC RBC Hgb Hct MCV MCH MCHC RDW Plt Count Lymph % (Auto) [place] % (Auto) Lymph # [place] # Baso # Seg Neutrophils % Seg Neuts % (Manual) Lymphocytes % (Manual) Monocytes % (Manual) Eosinophils % (Manual) Basophils % (Manual) Nucleated RBC % Seg Neutrophils # Seg Neutrophils # Man Lymphocytes # (Manual) Monocytes # (Manual) Eosinophils # (Manual) Basophils # (Manual) PT INR Fibrinogen dRVVT Confirm Interp Factor V Activity POC ABG pH POC ABG pCO2 POC ABG pO2 ABG pO2 ABG HCO3 ABG Base Excess ABG Hemoglobin Oxyhemoglobin Sodium Potassium Chloride Carbon Dioxide BUN Creatinine Glucose POC Glucose 153 H 140 H 150 H Lactic Acid Calcium Phosphorus Magnesium Direct Bilirubin AST ALT Alkaline Phosphatase Lactate Dehydrogenase Troponin T C-Reactive Protein Total Protein Albumin Prealbumin Triglycerides Cholesterol LDL Cholesterol Direct HDL Cholesterol PTH Intact Urine pH Urine WBC (Auto) Urine Creatinine Urine Total Protein Fluid Total Protein Vancomycin Trough Rheumatoid Factor Complement C4 Miscellaneous Test Crossmatch 10/13/16 10/13/16 10/13/16 06:22 09:20 12:29 WBC RBC Hgb Hct MCV MCH MCHC RDW Plt Count Lymph % (Auto) [place] % (Auto) Lymph # [place] # Baso # Seg Neutrophils % Seg Neuts % (Manual) Lymphocytes % (Manual) Monocytes % (Manual) Eosinophils % (Manual) Basophils % (Manual) Nucleated RBC % Seg Neutrophils # Seg Neutrophils # Man Lymphocytes # (Manual) Monocytes # (Manual) Eosinophils # (Manual) Basophils # (Manual) PT INR Fibrinogen dRVVT Confirm Interp Factor V Activity POC ABG pH POC ABG pCO2 POC ABG pO2 ABG pO2 ABG HCO3 ABG Base Excess ABG Hemoglobin Oxyhemoglobin Sodium Potassium Chloride Carbon Dioxide BUN Creatinine Glucose POC Glucose 165 H 193 H Lactic Acid Calcium Phosphorus Magnesium Direct Bilirubin AST ALT Alkaline Phosphatase Lactate Dehydrogenase Troponin T C-Reactive Protein Total Protein Albumin Prealbumin Triglycerides Cholesterol LDL Cholesterol Direct HDL Cholesterol PTH Intact Urine pH Urine WBC (Auto) Urine Creatinine Urine Total Protein Fluid Total Protein Vancomycin Trough Rheumatoid Factor Complement C4 Miscellaneous Test Flexitest 1 H Crossmatch 10/13/16 10/13/16 10/13/16 18:09 Unknown Unknown WBC 23.4 H RBC 2.83 L Hgb 8.7 L Hct 26.1 L MCV MCH MCHC RDW 18.1 H Plt Count Lymph % (Auto) [place] % (Auto) Lymph # [place] # Baso # Seg Neutrophils % Seg Neuts % (Manual) Lymphocytes % (Manual) Monocytes % (Manual) Eosinophils % (Manual) Basophils % (Manual) Nucleated RBC % Seg Neutrophils # Seg Neutrophils # Man Lymphocytes # (Manual) Monocytes # (Manual) Eosinophils # (Manual) Basophils # (Manual) PT INR Fibrinogen dRVVT Confirm Interp Factor V Activity POC ABG pH POC ABG pCO2 POC ABG pO2 ABG pO2 ABG HCO3 ABG Base Excess ABG Hemoglobin Oxyhemoglobin Sodium Potassium Chloride 95.8 L Carbon Dioxide BUN 82 H Creatinine 2.6 H Glucose 152 H POC Glucose 166 H Lactic Acid Calcium Phosphorus Magnesium Direct Bilirubin AST ALT Alkaline Phosphatase Lactate Dehydrogenase Troponin T C-Reactive Protein Total Protein Albumin Prealbumin Triglycerides Cholesterol LDL Cholesterol Direct HDL Cholesterol PTH Intact Urine pH Urine WBC (Auto) Urine Creatinine Urine Total Protein Fluid Total Protein Vancomycin Trough Rheumatoid Factor Complement C4 Miscellaneous Test Crossmatch 10/14/16 10/14/16 10/14/16 05:38 06:35 08:10 WBC 20.7 H RBC 2.81 L Hgb 8.4 L Hct 27.2 L MCV MCH MCHC RDW 19.4 H Plt Count Lymph % (Auto) [place] % (Auto) Lymph # [place] # Baso # Seg Neutrophils % Seg Neuts % (Manual) Lymphocytes % (Manual) Monocytes % (Manual) Eosinophils % (Manual) Basophils % (Manual) Nucleated RBC % Seg Neutrophils # Seg Neutrophils # Man Lymphocytes # (Manual) Monocytes # (Manual) Eosinophils # (Manual) Basophils # (Manual) PT INR Fibrinogen dRVVT Confirm Interp Factor V Activity POC ABG pH POC ABG pCO2 POC ABG pO2 ABG pO2 ABG HCO3 ABG Base Excess ABG Hemoglobin Oxyhemoglobin Sodium Potassium Chloride Carbon Dioxide BUN 58 H Creatinine 1.9 H Glucose 169 H POC Glucose 195 H Lactic Acid Calcium Phosphorus Magnesium Direct Bilirubin AST ALT Alkaline Phosphatase Lactate Dehydrogenase Troponin T C-Reactive Protein Total Protein Albumin Prealbumin Triglycerides Cholesterol LDL Cholesterol Direct HDL Cholesterol PTH Intact Urine pH Urine WBC (Auto) Urine Creatinine Urine Total Protein Fluid Total Protein Vancomycin Trough Rheumatoid Factor Complement C4 Miscellaneous Test Crossmatch 10/14/16 10/14/16 10/14/16 11:44 17:13 23:28 WBC RBC Hgb Hct MCV MCH MCHC RDW Plt Count Lymph % (Auto) [place] % (Auto) Lymph # [place] # Baso # Seg Neutrophils % Seg Neuts % (Manual) Lymphocytes % (Manual) Monocytes % (Manual) Eosinophils % (Manual) Basophils % (Manual) Nucleated RBC % Seg Neutrophils # Seg Neutrophils # Man Lymphocytes # (Manual) Monocytes # (Manual) Eosinophils # (Manual) Basophils # (Manual) PT INR Fibrinogen dRVVT Confirm Interp Factor V Activity POC ABG pH POC ABG pCO2 POC ABG pO2 ABG pO2 ABG HCO3 ABG Base Excess ABG Hemoglobin Oxyhemoglobin Sodium Potassium Chloride Carbon Dioxide BUN Creatinine Glucose POC Glucose 174 H 121 H 151 H Lactic Acid Calcium Phosphorus Magnesium Direct Bilirubin AST ALT Alkaline Phosphatase Lactate Dehydrogenase Troponin T C-Reactive Protein Total Protein Albumin Prealbumin Triglycerides Cholesterol LDL Cholesterol Direct HDL Cholesterol PTH Intact Urine pH Urine WBC (Auto) Urine Creatinine Urine Total Protein Fluid Total Protein Vancomycin Trough Rheumatoid Factor Complement C4 Miscellaneous Test Crossmatch 10/15/16 10/15/16 10/15/16 05:06 12:26 17:48 WBC RBC Hgb Hct MCV MCH MCHC RDW Plt Count Lymph % (Auto) [place] % (Auto) Lymph # [place] # Baso # Seg Neutrophils % Seg Neuts % (Manual) Lymphocytes % (Manual) Monocytes % (Manual) Eosinophils % (Manual) Basophils % (Manual) Nucleated RBC % Seg Neutrophils # Seg Neutrophils # Man Lymphocytes # (Manual) Monocytes # (Manual) Eosinophils # (Manual) Basophils # (Manual) PT INR Fibrinogen dRVVT Confirm Interp Factor V Activity POC ABG pH POC ABG pCO2 POC ABG pO2 ABG pO2 ABG HCO3 ABG Base Excess ABG Hemoglobin Oxyhemoglobin Sodium Potassium Chloride Carbon Dioxide BUN Creatinine Glucose POC Glucose 151 H 149 H 153 H Lactic Acid Calcium Phosphorus Magnesium Direct Bilirubin AST ALT Alkaline Phosphatase Lactate Dehydrogenase Troponin T C-Reactive Protein Total Protein Albumin Prealbumin Triglycerides Cholesterol LDL Cholesterol Direct HDL Cholesterol PTH Intact Urine pH Urine WBC (Auto) Urine Creatinine Urine Total Protein Fluid Total Protein Vancomycin Trough Rheumatoid Factor Complement C4 Miscellaneous Test Crossmatch 10/15/16 10/15/16 10/16/16 Unknown Unknown 00:02 WBC 23.4 H RBC 2.78 L Hgb 8.5 L Hct 25.7 L MCV MCH MCHC RDW 18.7 H Plt Count Lymph % (Auto) [place] % (Auto) Lymph # [place] # Baso # Seg Neutrophils % Seg Neuts % (Manual) Lymphocytes % (Manual) Monocytes % (Manual) Eosinophils % (Manual) Basophils % (Manual) Nucleated RBC % Seg Neutrophils # Seg Neutrophils # Man Lymphocytes # (Manual) Monocytes # (Manual) Eosinophils # (Manual) Basophils # (Manual) PT INR Fibrinogen dRVVT Confirm Interp Factor V Activity POC ABG pH POC ABG pCO2 POC ABG pO2 ABG pO2 ABG HCO3 ABG Base Excess ABG Hemoglobin Oxyhemoglobin Sodium Potassium Chloride Carbon Dioxide BUN 73 H Creatinine 2.3 H Glucose 120 H POC Glucose 137 H Lactic Acid Calcium Phosphorus Magnesium Direct Bilirubin AST ALT Alkaline Phosphatase Lactate Dehydrogenase Troponin T C-Reactive Protein Total Protein Albumin Prealbumin Triglycerides Cholesterol LDL Cholesterol Direct HDL Cholesterol PTH Intact Urine pH Urine WBC (Auto) Urine Creatinine Urine Total Protein Fluid Total Protein Vancomycin Trough Rheumatoid Factor Complement C4 Miscellaneous Test Crossmatch 10/16/16 10/16/16 10/16/16 05:44 06:25 06:25 WBC 22.5 H RBC 2.76 L Hgb 8.3 L Hct 25.2 L MCV MCH MCHC RDW 18.3 H Plt Count Lymph % (Auto) [place] % (Auto) Lymph # [place] # Baso # Seg Neutrophils % Seg Neuts % (Manual) Lymphocytes % (Manual) Monocytes % (Manual) Eosinophils % (Manual) Basophils % (Manual) Nucleated RBC % Seg Neutrophils # Seg Neutrophils # Man Lymphocytes # (Manual) Monocytes # (Manual) Eosinophils # (Manual) Basophils # (Manual) PT INR Fibrinogen dRVVT Confirm Interp Factor V Activity POC ABG pH POC ABG pCO2 POC ABG pO2 ABG pO2 ABG HCO3 ABG Base Excess ABG Hemoglobin Oxyhemoglobin Sodium Potassium Chloride Carbon Dioxide BUN 92 H Creatinine 3.0 H Glucose 138 H POC Glucose 110 H Lactic Acid Calcium Phosphorus Magnesium Direct Bilirubin AST ALT Alkaline Phosphatase Lactate Dehydrogenase Troponin T C-Reactive Protein Total Protein Albumin Prealbumin Triglycerides Cholesterol LDL Cholesterol Direct HDL Cholesterol PTH Intact Urine pH Urine WBC (Auto) Urine Creatinine Urine Total Protein Fluid Total Protein Vancomycin Trough Rheumatoid Factor Complement C4 Miscellaneous Test Crossmatch 10/16/16 10/16/16 10/16/16 11:27 11:48 17:36 WBC RBC Hgb Hct MCV MCH MCHC RDW Plt Count Lymph % (Auto) [place] % (Auto) Lymph # [place] # Baso # Seg Neutrophils % Seg Neuts % (Manual) Lymphocytes % (Manual) Monocytes % (Manual) Eosinophils % (Manual) Basophils % (Manual) Nucleated RBC % Seg Neutrophils # Seg Neutrophils # Man Lymphocytes # (Manual) Monocytes # (Manual) Eosinophils # (Manual) Basophils # (Manual) PT INR Fibrinogen dRVVT Confirm Interp Factor V Activity POC ABG pH 7.582 H POC ABG pCO2 27.4 L POC ABG pO2 110 H ABG pO2 ABG HCO3 ABG Base Excess ABG Hemoglobin Oxyhemoglobin Sodium Potassium Chloride Carbon Dioxide BUN Creatinine Glucose POC Glucose 121 H 133 H Lactic Acid Calcium Phosphorus Magnesium Direct Bilirubin AST ALT Alkaline Phosphatase Lactate Dehydrogenase Troponin T C-Reactive Protein Total Protein Albumin Prealbumin Triglycerides Cholesterol LDL Cholesterol Direct HDL Cholesterol PTH Intact Urine pH Urine WBC (Auto) Urine Creatinine Urine Total Protein Fluid Total Protein Vancomycin Trough Rheumatoid Factor Complement C4 Miscellaneous Test Crossmatch 10/16/16 10/17/16 10/17/16 20:48 04:24 04:24 WBC 21.4 H RBC 2.72 L Hgb 8.0 L Hct 25.2 L MCV MCH MCHC RDW 18.0 H Plt Count Lymph % (Auto) [place] % (Auto) Lymph # [place] # Baso # Seg Neutrophils % Seg Neuts % (Manual) Lymphocytes % (Manual) Monocytes % (Manual) Eosinophils % (Manual) Basophils % (Manual) Nucleated RBC % Seg Neutrophils # Seg Neutrophils # Man Lymphocytes # (Manual) Monocytes # (Manual) Eosinophils # (Manual) Basophils # (Manual) PT INR Fibrinogen dRVVT Confirm Interp Factor V Activity POC ABG pH 7.561 H POC ABG pCO2 24.4 L POC ABG pO2 77 L ABG pO2 ABG HCO3 ABG Base Excess ABG Hemoglobin Oxyhemoglobin Sodium 148 H Potassium Chloride Carbon Dioxide BUN 104 H Creatinine 3.0 H Glucose 149 H POC Glucose Lactic Acid Calcium Phosphorus Magnesium Direct Bilirubin AST ALT Alkaline Phosphatase 138 H Lactate Dehydrogenase Troponin T C-Reactive Protein Total Protein 6.2 L Albumin 1.5 L Prealbumin Triglycerides Cholesterol LDL Cholesterol Direct HDL Cholesterol PTH Intact Urine pH Urine WBC (Auto) Urine Creatinine Urine Total Protein Fluid Total Protein Vancomycin Trough Rheumatoid Factor Complement C4 Miscellaneous Test Crossmatch 10/17/16 10/17/16 10/17/16 06:02 12:17 17:14 WBC RBC Hgb Hct MCV MCH MCHC RDW Plt Count Lymph % (Auto) [place] % (Auto) Lymph # [place] # Baso # Seg Neutrophils % Seg Neuts % (Manual) Lymphocytes % (Manual) Monocytes % (Manual) Eosinophils % (Manual) Basophils % (Manual) Nucleated RBC % Seg Neutrophils # Seg Neutrophils # Man Lymphocytes # (Manual) Monocytes # (Manual) Eosinophils # (Manual) Basophils # (Manual) PT INR Fibrinogen dRVVT Confirm Interp Factor V Activity POC ABG pH POC ABG pCO2 POC ABG pO2 ABG pO2 ABG HCO3 ABG Base Excess ABG Hemoglobin Oxyhemoglobin Sodium Potassium Chloride Carbon Dioxide BUN Creatinine Glucose POC Glucose 170 H 167 H 126 H Lactic Acid Calcium Phosphorus Magnesium Direct Bilirubin AST ALT Alkaline Phosphatase Lactate Dehydrogenase Troponin T C-Reactive Protein Total Protein Albumin Prealbumin Triglycerides Cholesterol LDL Cholesterol Direct HDL Cholesterol PTH Intact Urine pH Urine WBC (Auto) Urine Creatinine Urine Total Protein Fluid Total Protein Vancomycin Trough Rheumatoid Factor Complement C4 Miscellaneous Test Crossmatch 10/17/16 10/18/16 10/18/16 23:17 04:00 04:00 WBC 20.7 H RBC 2.47 L Hgb 7.4 L Hct 22.9 L MCV MCH MCHC RDW 17.5 H Plt Count Lymph % (Auto) [place] % (Auto) Lymph # [place] # Baso # Seg Neutrophils % Seg Neuts % (Manual) Lymphocytes % (Manual) Monocytes % (Manual) Eosinophils % (Manual) Basophils % (Manual) Nucleated RBC % Seg Neutrophils # Seg Neutrophils # Man Lymphocytes # (Manual) Monocytes # (Manual) Eosinophils # (Manual) Basophils # (Manual) PT INR Fibrinogen dRVVT Confirm Interp Factor V Activity POC ABG pH POC ABG pCO2 POC ABG pO2 ABG pO2 ABG HCO3 ABG Base Excess ABG Hemoglobin Oxyhemoglobin Sodium 149 H Potassium Chloride 107.9 H Carbon Dioxide 20 L BUN 117 H Creatinine 3.2 H Glucose 119 H POC Glucose 121 H Lactic Acid Calcium Phosphorus Magnesium Direct Bilirubin AST ALT Alkaline Phosphatase Lactate Dehydrogenase Troponin T C-Reactive Protein Total Protein Albumin Prealbumin Triglycerides Cholesterol LDL Cholesterol Direct HDL Cholesterol PTH Intact Urine pH Urine WBC (Auto) Urine Creatinine Urine Total Protein Fluid Total Protein Vancomycin Trough Rheumatoid Factor Complement C4 Miscellaneous Test Crossmatch 10/18/16 10/18/16 10/18/16 05:23 10:46 17:30 WBC RBC Hgb Hct MCV MCH MCHC RDW Plt Count Lymph % (Auto) [place] % (Auto) Lymph # [place] # Baso # Seg Neutrophils % Seg Neuts % (Manual) Lymphocytes % (Manual) Monocytes % (Manual) Eosinophils % (Manual) Basophils % (Manual) Nucleated RBC % Seg Neutrophils # Seg Neutrophils # Man Lymphocytes # (Manual) Monocytes # (Manual) Eosinophils # (Manual) Basophils # (Manual) PT INR Fibrinogen dRVVT Confirm Interp Factor V Activity POC ABG pH POC ABG pCO2 POC ABG pO2 ABG pO2 ABG HCO3 ABG Base Excess ABG Hemoglobin Oxyhemoglobin Sodium Potassium Chloride Carbon Dioxide BUN Creatinine Glucose POC Glucose 119 H 155 H 124 H Lactic Acid Calcium Phosphorus Magnesium Direct Bilirubin AST ALT Alkaline Phosphatase Lactate Dehydrogenase Troponin T C-Reactive Protein Total Protein Albumin Prealbumin Triglycerides Cholesterol LDL Cholesterol Direct HDL Cholesterol PTH Intact Urine pH Urine WBC (Auto) Urine Creatinine Urine Total Protein Fluid Total Protein Vancomycin Trough Rheumatoid Factor Complement C4 Miscellaneous Test Crossmatch 10/19/16 10/19/16 10/19/16 04:00 04:00 05:25 WBC 17.4 H RBC 2.54 L Hgb 7.7 L Hct 23.6 L MCV MCH MCHC RDW 17.3 H Plt Count Lymph % (Auto) [place] % (Auto) Lymph # [place] # Baso # Seg Neutrophils % Seg Neuts % (Manual) Lymphocytes % (Manual) Monocytes % (Manual) Eosinophils % (Manual) Basophils % (Manual) Nucleated RBC % Seg Neutrophils # Seg Neutrophils # Man Lymphocytes # (Manual) Monocytes # (Manual) Eosinophils # (Manual) Basophils # (Manual) PT INR Fibrinogen dRVVT Confirm Interp Factor V Activity POC ABG pH POC ABG pCO2 POC ABG pO2 ABG pO2 ABG HCO3 ABG Base Excess ABG Hemoglobin Oxyhemoglobin Sodium Potassium Chloride Carbon Dioxide BUN 72 H Creatinine 2.1 H Glucose 116 H POC Glucose 119 H Lactic Acid Calcium Phosphorus Magnesium Direct Bilirubin AST ALT Alkaline Phosphatase Lactate Dehydrogenase Troponin T C-Reactive Protein Total Protein Albumin Prealbumin Triglycerides Cholesterol LDL Cholesterol Direct HDL Cholesterol PTH Intact Urine pH Urine WBC (Auto) Urine Creatinine Urine Total Protein Fluid Total Protein Vancomycin Trough Rheumatoid Factor Complement C4 Miscellaneous Test Crossmatch 10/19/16 10/19/16 10/20/16 11:46 23:59 06:00 WBC RBC Hgb Hct MCV MCH MCHC RDW Plt Count Lymph % (Auto) [place] % (Auto) Lymph # [place] # Baso # Seg Neutrophils % Seg Neuts % (Manual) Lymphocytes % (Manual) Monocytes % (Manual) Eosinophils % (Manual) Basophils % (Manual) Nucleated RBC % Seg Neutrophils # Seg Neutrophils # Man Lymphocytes # (Manual) Monocytes # (Manual) Eosinophils # (Manual) Basophils # (Manual) PT INR Fibrinogen dRVVT Confirm Interp Factor V Activity POC ABG pH POC ABG pCO2 POC ABG pO2 ABG pO2 ABG HCO3 ABG Base Excess ABG Hemoglobin Oxyhemoglobin Sodium Potassium Chloride Carbon Dioxide 17 L BUN 94 H Creatinine 2.7 H Glucose POC Glucose 116 H 117 H Lactic Acid Calcium Phosphorus Magnesium Direct Bilirubin AST ALT Alkaline Phosphatase Lactate Dehydrogenase Troponin T C-Reactive Protein Total Protein Albumin Prealbumin Triglycerides Cholesterol LDL Cholesterol Direct HDL Cholesterol PTH Intact Urine pH Urine WBC (Auto) Urine Creatinine Urine Total Protein Fluid Total Protein Vancomycin Trough Rheumatoid Factor Complement C4 Miscellaneous Test Crossmatch 10/20/16 10/20/16 10/20/16 06:00 11:49 16:00 WBC 19.7 H RBC 2.51 L Hgb 7.7 L Hct 23.5 L MCV MCH MCHC RDW 17.5 H Plt Count Lymph % (Auto) [place] % (Auto) Lymph # [place] # Baso # Seg Neutrophils % Seg Neuts % (Manual) Lymphocytes % (Manual) Monocytes % (Manual) Eosinophils % (Manual) Basophils % (Manual) Nucleated RBC % Seg Neutrophils # Seg Neutrophils # Man Lymphocytes # (Manual) Monocytes # (Manual) Eosinophils # (Manual) Basophils # (Manual) PT INR Fibrinogen dRVVT Confirm Interp Factor V Activity POC ABG pH POC ABG pCO2 POC ABG pO2 ABG pO2 ABG HCO3 ABG Base Excess ABG Hemoglobin Oxyhemoglobin Sodium Potassium Chloride Carbon Dioxide BUN Creatinine Glucose POC Glucose 117 H Lactic Acid Calcium Phosphorus Magnesium Direct Bilirubin AST ALT Alkaline Phosphatase Lactate Dehydrogenase Troponin T C-Reactive Protein Total Protein Albumin Prealbumin Triglycerides Cholesterol LDL Cholesterol Direct HDL Cholesterol PTH Intact Urine pH Urine WBC (Auto) Urine Creatinine Urine Total Protein Fluid Total Protein Vancomycin Trough Rheumatoid Factor Complement C4 Miscellaneous Test Flexitest 1 H Crossmatch 10/20/16 10/20/16 10/21/16 18:36 23:39 04:00 WBC RBC Hgb Hct MCV MCH MCHC RDW Plt Count Lymph % (Auto) [place] % (Auto) Lymph # [place] # Baso # Seg Neutrophils % Seg Neuts % (Manual) Lymphocytes % (Manual) Monocytes % (Manual) Eosinophils % (Manual) Basophils % (Manual) Nucleated RBC % Seg Neutrophils # Seg Neutrophils # Man Lymphocytes # (Manual) Monocytes # (Manual) Eosinophils # (Manual) Basophils # (Manual) PT INR Fibrinogen dRVVT Confirm Interp Factor V Activity POC ABG pH POC ABG pCO2 POC ABG pO2 ABG pO2 ABG HCO3 ABG Base Excess ABG Hemoglobin Oxyhemoglobin Sodium Potassium 5.4 H D Chloride Carbon Dioxide 15 L BUN 110 H Creatinine 3.0 H Glucose POC Glucose 127 H 114 H Lactic Acid Calcium Phosphorus Magnesium Direct Bilirubin AST ALT Alkaline Phosphatase Lactate Dehydrogenase Troponin T C-Reactive Protein Total Protein Albumin Prealbumin Triglycerides Cholesterol LDL Cholesterol Direct HDL Cholesterol PTH Intact Urine pH Urine WBC (Auto) Urine Creatinine Urine Total Protein Fluid Total Protein Vancomycin Trough Rheumatoid Factor Complement C4 Miscellaneous Test Crossmatch 10/21/16 10/21/16 10/22/16 05:54 23:46 05:18 WBC RBC Hgb Hct MCV MCH MCHC RDW Plt Count Lymph % (Auto) [place] % (Auto) Lymph # [place] # Baso # Seg Neutrophils % Seg Neuts % (Manual) Lymphocytes % (Manual) Monocytes % (Manual) Eosinophils % (Manual) Basophils % (Manual) Nucleated RBC % Seg Neutrophils # Seg Neutrophils # Man Lymphocytes # (Manual) Monocytes # (Manual) Eosinophils # (Manual) Basophils # (Manual) PT INR Fibrinogen dRVVT Confirm Interp Factor V Activity POC ABG pH POC ABG pCO2 POC ABG pO2 ABG pO2 ABG HCO3 ABG Base Excess ABG Hemoglobin Oxyhemoglobin Sodium Potassium Chloride Carbon Dioxide BUN Creatinine Glucose POC Glucose 119 H 108 H 109 H Lactic Acid Calcium Phosphorus Magnesium Direct Bilirubin AST ALT Alkaline Phosphatase Lactate Dehydrogenase Troponin T C-Reactive Protein Total Protein Albumin Prealbumin Triglycerides Cholesterol LDL Cholesterol Direct HDL Cholesterol PTH Intact Urine pH Urine WBC (Auto) Urine Creatinine Urine Total Protein Fluid Total Protein Vancomycin Trough Rheumatoid Factor Complement C4 Miscellaneous Test Crossmatch 10/22/16 10/22/16 10/22/16 06:40 06:40 06:40 WBC 14.0 H RBC 2.03 L Hgb 7.0 L Hct 20.5 L MCV 98 H MCH 34 H MCHC 35 H RDW 17.8 H Plt Count Lymph % (Auto) [place] % (Auto) 9.9 H Lymph # [place] # 1.4 H Baso # 0.2 H Seg Neutrophils % 72.0 H Seg Neuts % (Manual) Lymphocytes % (Manual) Monocytes % (Manual) Eosinophils % (Manual) Basophils % (Manual) Nucleated RBC % Seg Neutrophils # 10.0 H Seg Neutrophils # Man Lymphocytes # (Manual) Monocytes # (Manual) Eosinophils # (Manual) Basophils # (Manual) PT INR Fibrinogen dRVVT Confirm Interp Factor V Activity POC ABG pH POC ABG pCO2 POC ABG pO2 ABG pO2 ABG HCO3 ABG Base Excess ABG Hemoglobin Oxyhemoglobin Sodium 130 L D Potassium Chloride 92.4 L Carbon Dioxide 20 L BUN 50 H Creatinine 1.6 H Glucose 589 H* POC Glucose Lactic Acid Calcium 7.8 L D Phosphorus Magnesium 1.60 L Direct Bilirubin AST ALT Alkaline Phosphatase Lactate Dehydrogenase Troponin T C-Reactive Protein Total Protein Albumin Prealbumin Triglycerides Cholesterol LDL Cholesterol Direct HDL Cholesterol PTH Intact Urine pH Urine WBC (Auto) Urine Creatinine Urine Total Protein Fluid Total Protein Vancomycin Trough Rheumatoid Factor Complement C4 Miscellaneous Test Crossmatch 10/22/16 10/22/16 10/22/16 11:39 16:44 23:36 WBC RBC Hgb Hct MCV MCH MCHC RDW Plt Count Lymph % (Auto) [place] % (Auto) Lymph # [place] # Baso # Seg Neutrophils % Seg Neuts % (Manual) Lymphocytes % (Manual) Monocytes % (Manual) Eosinophils % (Manual) Basophils % (Manual) Nucleated RBC % Seg Neutrophils # Seg Neutrophils # Man Lymphocytes # (Manual) Monocytes # (Manual) Eosinophils # (Manual) Basophils # (Manual) PT INR Fibrinogen dRVVT Confirm Interp Factor V Activity POC ABG pH POC ABG pCO2 POC ABG pO2 ABG pO2 ABG HCO3 ABG Base Excess ABG Hemoglobin Oxyhemoglobin Sodium Potassium Chloride Carbon Dioxide BUN Creatinine Glucose POC Glucose 142 H 163 H 123 H Lactic Acid Calcium Phosphorus Magnesium Direct Bilirubin AST ALT Alkaline Phosphatase Lactate Dehydrogenase Troponin T C-Reactive Protein Total Protein Albumin Prealbumin Triglycerides Cholesterol LDL Cholesterol Direct HDL Cholesterol PTH Intact Urine pH Urine WBC (Auto) Urine Creatinine Urine Total Protein Fluid Total Protein Vancomycin Trough Rheumatoid Factor Complement C4 Miscellaneous Test Crossmatch 10/23/16 10/23/16 10/23/16 04:58 06:00 12:12 WBC RBC Hgb Hct MCV MCH MCHC RDW Plt Count Lymph % (Auto) [place] % (Auto) Lymph # [place] # Baso # Seg Neutrophils % Seg Neuts % (Manual) Lymphocytes % (Manual) Monocytes % (Manual) Eosinophils % (Manual) Basophils % (Manual) Nucleated RBC % Seg Neutrophils # Seg Neutrophils # Man Lymphocytes # (Manual) Monocytes # (Manual) Eosinophils # (Manual) Basophils # (Manual) PT INR Fibrinogen dRVVT Confirm Interp Factor V Activity POC ABG pH POC ABG pCO2 POC ABG pO2 ABG pO2 ABG HCO3 ABG Base Excess ABG Hemoglobin Oxyhemoglobin Sodium 133 L Potassium 3.5 L Chloride 96.1 L Carbon Dioxide 18 L BUN 76 H Creatinine 2.1 H Glucose POC Glucose 133 H 138 H Lactic Acid Calcium 8.3 L Phosphorus Magnesium Direct Bilirubin AST ALT Alkaline Phosphatase Lactate Dehydrogenase Troponin T C-Reactive Protein Total Protein Albumin Prealbumin Triglycerides Cholesterol LDL Cholesterol Direct HDL Cholesterol PTH Intact Urine pH Urine WBC (Auto) Urine Creatinine Urine Total Protein Fluid Total Protein Vancomycin Trough Rheumatoid Factor Complement C4 Miscellaneous Test Crossmatch 10/23/16 10/23/16 10/24/16 16:53 23:37 04:00 WBC RBC Hgb Hct MCV MCH MCHC RDW Plt Count Lymph % (Auto) [place] % (Auto) Lymph # [place] # Baso # Seg Neutrophils % Seg Neuts % (Manual) Lymphocytes % (Manual) Monocytes % (Manual) Eosinophils % (Manual) Basophils % (Manual) Nucleated RBC % Seg Neutrophils # Seg Neutrophils # Man Lymphocytes # (Manual) Monocytes # (Manual) Eosinophils # (Manual) Basophils # (Manual) PT INR Fibrinogen dRVVT Confirm Interp Factor V Activity POC ABG pH POC ABG pCO2 POC ABG pO2 ABG pO2 ABG HCO3 ABG Base Excess ABG Hemoglobin Oxyhemoglobin Sodium 131 L Potassium Chloride 94.5 L Carbon Dioxide 19 L BUN 97 H Creatinine 2.6 H Glucose 110 H POC Glucose 125 H 123 H Lactic Acid Calcium 8.3 L Phosphorus Magnesium Direct Bilirubin AST ALT Alkaline Phosphatase Lactate Dehydrogenase Troponin T C-Reactive Protein Total Protein Albumin Prealbumin Triglycerides Cholesterol LDL Cholesterol Direct HDL Cholesterol PTH Intact Urine pH Urine WBC (Auto) Urine Creatinine Urine Total Protein Fluid Total Protein Vancomycin Trough Rheumatoid Factor Complement C4 Miscellaneous Test Crossmatch 10/24/16 10/24/16 10/24/16 07:49 11:39 17:52 WBC RBC Hgb 6.0 L Hct 19.7 L* MCV MCH MCHC RDW Plt Count Lymph % (Auto) [place] % (Auto) Lymph # [place] # Baso # Seg Neutrophils % Seg Neuts % (Manual) Lymphocytes % (Manual) Monocytes % (Manual) Eosinophils % (Manual) Basophils % (Manual) Nucleated RBC % Seg Neutrophils # Seg Neutrophils # Man Lymphocytes # (Manual) Monocytes # (Manual) Eosinophils # (Manual) Basophils # (Manual) PT INR Fibrinogen dRVVT Confirm Interp Factor V Activity POC ABG pH POC ABG pCO2 POC ABG pO2 ABG pO2 ABG HCO3 ABG Base Excess ABG Hemoglobin Oxyhemoglobin Sodium Potassium Chloride Carbon Dioxide BUN Creatinine Glucose POC Glucose 106 H 158 H Lactic Acid Calcium Phosphorus Magnesium Direct Bilirubin AST ALT Alkaline Phosphatase Lactate Dehydrogenase Troponin T C-Reactive Protein Total Protein Albumin Prealbumin Triglycerides Cholesterol LDL Cholesterol Direct HDL Cholesterol PTH Intact Urine pH Urine WBC (Auto) Urine Creatinine Urine Total Protein Fluid Total Protein Vancomycin Trough Rheumatoid Factor Complement C4 Miscellaneous Test Crossmatch 10/24/16 10/24/16 10/24/16 20:00 22:27 Unknown WBC RBC Hgb 9.4 L D Hct 27.5 L D MCV MCH MCHC RDW Plt Count Lymph % (Auto) [place] % (Auto) Lymph # [place] # Baso # Seg Neutrophils % Seg Neuts % (Manual) Lymphocytes % (Manual) Monocytes % (Manual) Eosinophils % (Manual) Basophils % (Manual) Nucleated RBC % Seg Neutrophils # Seg Neutrophils # Man Lymphocytes # (Manual) Monocytes # (Manual) Eosinophils # (Manual) Basophils # (Manual) PT INR Fibrinogen dRVVT Confirm Interp Factor V Activity POC ABG pH POC ABG pCO2 POC ABG pO2 ABG pO2 ABG HCO3 ABG Base Excess ABG Hemoglobin Oxyhemoglobin Sodium Potassium Chloride Carbon Dioxide BUN Creatinine Glucose POC Glucose 125 H Lactic Acid Calcium Phosphorus Magnesium Direct Bilirubin AST ALT Alkaline Phosphatase Lactate Dehydrogenase Troponin T C-Reactive Protein Total Protein Albumin Prealbumin Triglycerides Cholesterol LDL Cholesterol Direct HDL Cholesterol PTH Intact Urine pH Urine WBC (Auto) Urine Creatinine Urine Total Protein Fluid Total Protein Vancomycin Trough Rheumatoid Factor Complement C4 Miscellaneous Test Crossmatch See Detail 10/25/16 10/25/16 10/25/16 04:00 04:00 04:00 WBC 14.2 H RBC 2.98 L Hgb 9.0 L Hct 26.2 L MCV MCH MCHC RDW 16.6 H Plt Count Lymph % (Auto) [place] % (Auto) 10.7 H Lymph # [place] # 1.5 H Baso # Seg Neutrophils % 73.6 H Seg Neuts % (Manual) Lymphocytes % (Manual) Monocytes % (Manual) Eosinophils % (Manual) Basophils % (Manual) Nucleated RBC % Seg Neutrophils # 10.5 H Seg Neutrophils # Man Lymphocytes # (Manual) Monocytes # (Manual) Eosinophils # (Manual) Basophils # (Manual) PT INR Fibrinogen dRVVT Confirm Interp Factor V Activity POC ABG pH POC ABG pCO2 POC ABG pO2 ABG pO2 ABG HCO3 ABG Base Excess ABG Hemoglobin Oxyhemoglobin Sodium 132 L Potassium Chloride 94.7 L Carbon Dioxide BUN 51 H Creatinine 1.6 H Glucose 130 H POC Glucose Lactic Acid Calcium 8.3 L Phosphorus 1.60 L D Magnesium Direct Bilirubin AST ALT Alkaline Phosphatase Lactate Dehydrogenase Troponin T C-Reactive Protein Total Protein Albumin Prealbumin Triglycerides Cholesterol LDL Cholesterol Direct HDL Cholesterol PTH Intact Urine pH Urine WBC (Auto) Urine Creatinine Urine Total Protein Fluid Total Protein Vancomycin Trough Rheumatoid Factor Complement C4 Miscellaneous Test Crossmatch 10/25/16 10/25/16 10/25/16 04:32 11:48 17:22 WBC RBC Hgb Hct MCV MCH MCHC RDW Plt Count Lymph % (Auto) [place] % (Auto) Lymph # [place] # Baso # Seg Neutrophils % Seg Neuts % (Manual) Lymphocytes % (Manual) Monocytes % (Manual) Eosinophils % (Manual) Basophils % (Manual) Nucleated RBC % Seg Neutrophils # Seg Neutrophils # Man Lymphocytes # (Manual) Monocytes # (Manual) Eosinophils # (Manual) Basophils # (Manual) PT INR Fibrinogen dRVVT Confirm Interp Factor V Activity POC ABG pH POC ABG pCO2 POC ABG pO2 ABG pO2 ABG HCO3 ABG Base Excess ABG Hemoglobin Oxyhemoglobin Sodium Potassium Chloride Carbon Dioxide BUN Creatinine Glucose POC Glucose 124 H 171 H 120 H Lactic Acid Calcium Phosphorus Magnesium Direct Bilirubin AST ALT Alkaline Phosphatase Lactate Dehydrogenase Troponin T C-Reactive Protein Total Protein Albumin Prealbumin Triglycerides Cholesterol LDL Cholesterol Direct HDL Cholesterol PTH Intact Urine pH Urine WBC (Auto) Urine Creatinine Urine Total Protein Fluid Total Protein Vancomycin Trough Rheumatoid Factor Complement C4 Miscellaneous Test Crossmatch 10/26/16 10/26/16 10/26/16 04:54 07:06 07:06 WBC 16.9 H RBC 3.06 L Hgb 9.1 L Hct 26.9 L MCV MCH MCHC RDW 16.9 H Plt Count Lymph % (Auto) [place] % (Auto) Lymph # [place] # Baso # Seg Neutrophils % Seg Neuts % (Manual) 71.0 H Lymphocytes % (Manual) 5.0 L Monocytes % (Manual) 12.0 H Eosinophils % (Manual) Basophils % (Manual) Nucleated RBC % Seg Neutrophils # Seg Neutrophils # Man 12.0 H Lymphocytes # (Manual) 0.8 L Monocytes # (Manual) 2.0 H Eosinophils # (Manual) Basophils # (Manual) PT INR Fibrinogen dRVVT Confirm Interp Factor V Activity POC ABG pH POC ABG pCO2 POC ABG pO2 ABG pO2 ABG HCO3 ABG Base Excess ABG Hemoglobin Oxyhemoglobin Sodium 135 L Potassium Chloride 97.1 L Carbon Dioxide BUN 73 H Creatinine 2.2 H Glucose 117 H POC Glucose 123 H Lactic Acid Calcium Phosphorus 1.70 L Magnesium Direct Bilirubin AST ALT Alkaline Phosphatase Lactate Dehydrogenase Troponin T C-Reactive Protein Total Protein Albumin Prealbumin Triglycerides Cholesterol LDL Cholesterol Direct HDL Cholesterol PTH Intact Urine pH Urine WBC (Auto) Urine Creatinine Urine Total Protein Fluid Total Protein Vancomycin Trough Rheumatoid Factor Complement C4 Miscellaneous Test Crossmatch 10/26/16 10/26/1610/26/17 12:12 17:29 23:42 WBC RBC Hgb Hct MCV MCH MCHC RDW Plt Count Lymph % (Auto) [place] % (Auto) Lymph # [place] # Baso # Seg Neutrophils % Seg Neuts % (Manual) Lymphocytes % (Manual) Monocytes % (Manual) Eosinophils % (Manual) Basophils % (Manual) Nucleated RBC % Seg Neutrophils # Seg Neutrophils # Man Lymphocytes # (Manual) Monocytes # (Manual) Eosinophils # (Manual) Basophils # (Manual) PT INR Fibrinogen dRVVT Confirm Interp Factor V Activity POC ABG pH POC ABG pCO2 POC ABG pO2 ABG pO2 ABG HCO3 ABG Base Excess ABG Hemoglobin Oxyhemoglobin Sodium Potassium Chloride Carbon Dioxide BUN Creatinine Glucose POC Glucose 126 H 161 H 118 H Lactic Acid Calcium Phosphorus Magnesium Direct Bilirubin AST ALT Alkaline Phosphatase Lactate Dehydrogenase Troponin T C-Reactive Protein Total Protein Albumin Prealbumin Triglycerides Cholesterol LDL Cholesterol Direct HDL Cholesterol PTH Intact Urine pH Urine WBC (Auto) Urine Creatinine Urine Total Protein Fluid Total Protein Vancomycin Trough Rheumatoid Factor Complement C4 Miscellaneous Test Crossmatch 10/27/16 10/27/16 10/27/16 05:03 06:30 06:30 WBC 13.9 H RBC 3.09 L Hgb 9.2 L Hct 27.5 L MCV MCH MCHC RDW 17.0 H Plt Count Lymph % (Auto) [place] % (Auto) Lymph # [place] # Baso # Seg Neutrophils % Seg Neuts % (Manual) 78.0 H Lymphocytes % (Manual) Monocytes % (Manual) Eosinophils % (Manual) Basophils % (Manual) Nucleated RBC % 2.0 H Seg Neutrophils # Seg Neutrophils # Man 10.8 H Lymphocytes # (Manual) Monocytes # (Manual) 1.0 H Eosinophils # (Manual) Basophils # (Manual) PT INR Fibrinogen dRVVT Confirm Interp Factor V Activity POC ABG pH POC ABG pCO2 POC ABG pO2 ABG pO2 ABG HCO3 ABG Base Excess ABG Hemoglobin Oxyhemoglobin Sodium Potassium Chloride Carbon Dioxide BUN 40 H Creatinine 1.5 H Glucose 135 H POC Glucose 107 H Lactic Acid Calcium 8.3 L Phosphorus 1.30 L D Magnesium Direct Bilirubin AST ALT Alkaline Phosphatase Lactate Dehydrogenase Troponin T C-Reactive Protein Total Protein Albumin Prealbumin Triglycerides Cholesterol LDL Cholesterol Direct HDL Cholesterol PTH Intact Urine pH Urine WBC (Auto) Urine Creatinine Urine Total Protein Fluid Total Protein Vancomycin Trough Rheumatoid Factor Complement C4 Miscellaneous Test Crossmatch 10/27/16 10/27/16 10/27/16 13:27 18:07 23:40 WBC RBC Hgb Hct MCV MCH MCHC RDW Plt Count Lymph % (Auto) [place] % (Auto) Lymph # [place] # Baso # Seg Neutrophils % Seg Neuts % (Manual) Lymphocytes % (Manual) Monocytes % (Manual) Eosinophils % (Manual) Basophils % (Manual) Nucleated RBC % Seg Neutrophils # Seg Neutrophils # Man Lymphocytes # (Manual) Monocytes # (Manual) Eosinophils # (Manual) Basophils # (Manual) PT INR Fibrinogen dRVVT Confirm Interp Factor V Activity POC ABG pH POC ABG pCO2 POC ABG pO2 ABG pO2 ABG HCO3 ABG Base Excess ABG Hemoglobin Oxyhemoglobin Sodium Potassium Chloride Carbon Dioxide BUN Creatinine Glucose POC Glucose 117 H 121 H 118 H Lactic Acid Calcium Phosphorus Magnesium Direct Bilirubin AST ALT Alkaline Phosphatase Lactate Dehydrogenase Troponin T C-Reactive Protein Total Protein Albumin Prealbumin Triglycerides Cholesterol LDL Cholesterol Direct HDL Cholesterol PTH Intact Urine pH Urine WBC (Auto) Urine Creatinine Urine Total Protein Fluid Total Protein Vancomycin Trough Rheumatoid Factor Complement C4 Miscellaneous Test Crossmatch 10/28/16 10/28/16 10/28/16 05:48 06:45 06:45 WBC 14.7 H RBC 3.05 L Hgb 9.0 L Hct 26.9 L MCV MCH MCHC RDW 16.8 H Plt Count Lymph % (Auto) 8.2 L [place] % (Auto) 8.4 H Lymph # [place] # 1.2 H Baso # Seg Neutrophils % 81.9 H Seg Neuts % (Manual) Lymphocytes % (Manual) Monocytes % (Manual) Eosinophils % (Manual) Basophils % (Manual) Nucleated RBC % Seg Neutrophils # 12.1 H Seg Neutrophils # Man Lymphocytes # (Manual) Monocytes # (Manual) Eosinophils # (Manual) Basophils # (Manual) PT INR Fibrinogen dRVVT Confirm Interp Factor V Activity POC ABG pH POC ABG pCO2 POC ABG pO2 ABG pO2 ABG HCO3 ABG Base Excess ABG Hemoglobin Oxyhemoglobin Sodium Potassium Chloride Carbon Dioxide BUN 60 H Creatinine 1.9 H Glucose 120 H POC Glucose 114 H Lactic Acid Calcium Phosphorus Magnesium Direct Bilirubin AST ALT Alkaline Phosphatase Lactate Dehydrogenase Troponin T C-Reactive Protein Total Protein Albumin Prealbumin Triglycerides Cholesterol LDL Cholesterol Direct HDL Cholesterol PTH Intact Urine pH Urine WBC (Auto) Urine Creatinine Urine Total Protein Fluid Total Protein Vancomycin Trough Rheumatoid Factor Complement C4 Miscellaneous Test Crossmatch 10/28/16 10/28/16 10/29/16 17:08 23:50 05:10 WBC RBC Hgb Hct MCV MCH MCHC RDW Plt Count Lymph % (Auto) [place] % (Auto) Lymph # [place] # Baso # Seg Neutrophils % Seg Neuts % (Manual) Lymphocytes % (Manual) Monocytes % (Manual) Eosinophils % (Manual) Basophils % (Manual) Nucleated RBC % Seg Neutrophils # Seg Neutrophils # Man Lymphocytes # (Manual) Monocytes # (Manual) Eosinophils # (Manual) Basophils # (Manual) PT INR Fibrinogen dRVVT Confirm Interp Factor V Activity POC ABG pH POC ABG pCO2 POC ABG pO2 ABG pO2 ABG HCO3 ABG Base Excess ABG Hemoglobin Oxyhemoglobin Sodium Potassium Chloride Carbon Dioxide BUN Creatinine Glucose POC Glucose 109 H 110 H 124 H Lactic Acid Calcium Phosphorus Magnesium Direct Bilirubin AST ALT Alkaline Phosphatase Lactate Dehydrogenase Troponin T C-Reactive Protein Total Protein Albumin Prealbumin Triglycerides Cholesterol LDL Cholesterol Direct HDL Cholesterol PTH Intact Urine pH Urine WBC (Auto) Urine Creatinine Urine Total Protein Fluid Total Protein Vancomycin Trough Rheumatoid Factor Complement C4 Miscellaneous Test Crossmatch 10/29/16 10/29/16 10/29/16 07:45 07:45 12:19 WBC 14.7 H RBC 3.15 L Hgb 9.3 L Hct 28.9 L MCV MCH MCHC RDW 17.0 H Plt Count Lymph % (Auto) 11.9 L [place] % (Auto) 8.6 H Lymph # [place] # 1.3 H Baso # Seg Neutrophils % 78.1 H Seg Neuts % (Manual) Lymphocytes % (Manual) Monocytes % (Manual) Eosinophils % (Manual) Basophils % (Manual) Nucleated RBC % Seg Neutrophils # 11.4 H Seg Neutrophils # Man Lymphocytes # (Manual) Monocytes # (Manual) Eosinophils # (Manual) Basophils # (Manual) PT INR Fibrinogen dRVVT Confirm Interp Factor V Activity POC ABG pH POC ABG pCO2 POC ABG pO2 ABG pO2 ABG HCO3 ABG Base Excess ABG Hemoglobin Oxyhemoglobin Sodium Potassium 5.1 H Chloride Carbon Dioxide 19 L BUN 78 H Creatinine 2.2 H Glucose 116 H POC Glucose 118 H Lactic Acid Calcium Phosphorus Magnesium Direct Bilirubin AST ALT Alkaline Phosphatase Lactate Dehydrogenase Troponin T C-Reactive Protein Total Protein Albumin Prealbumin Triglycerides Cholesterol LDL Cholesterol Direct HDL Cholesterol PTH Intact Urine pH Urine WBC (Auto) Urine Creatinine Urine Total Protein Fluid Total Protein Vancomycin Trough Rheumatoid Factor Complement C4 Miscellaneous Test Crossmatch 10/29/16 10/30/16 10/30/16 17:49 01:52 03:28 WBC RBC Hgb Hct MCV MCH MCHC RDW Plt Count Lymph % (Auto) [place] % (Auto) Lymph # [place] # Baso # Seg Neutrophils % Seg Neuts % (Manual) Lymphocytes % (Manual) Monocytes % (Manual) Eosinophils % (Manual) Basophils % (Manual) Nucleated RBC % Seg Neutrophils # Seg Neutrophils # Man Lymphocytes # (Manual) Monocytes # (Manual) Eosinophils # (Manual) Basophils # (Manual) PT INR Fibrinogen dRVVT Confirm Interp Factor V Activity POC ABG pH POC ABG pCO2 POC ABG pO2 ABG pO2 ABG HCO3 ABG Base Excess ABG Hemoglobin Oxyhemoglobin Sodium Potassium 5.4 H Chloride 97.5 L Carbon Dioxide 19 L BUN 90 H Creatinine 2.5 H Glucose POC Glucose 120 H 129 H Lactic Acid Calcium Phosphorus 5.20 H Magnesium Direct Bilirubin AST ALT Alkaline Phosphatase Lactate Dehydrogenase Troponin T C-Reactive Protein Total Protein Albumin Prealbumin Triglycerides Cholesterol LDL Cholesterol Direct HDL Cholesterol PTH Intact Urine pH Urine WBC (Auto) Urine Creatinine Urine Total Protein Fluid Total Protein Vancomycin Trough Rheumatoid Factor Complement C4 Miscellaneous Test Crossmatch 10/30/16 10/30/16 10/30/16 03:28 08:19 08:19 WBC 11.6 H 15.9 H RBC 2.75 L 2.82 L Hgb 7.9 L 8.3 L Hct 24.2 L 25.2 L MCV MCH MCHC RDW 16.7 H 17.2 H Plt Count Lymph % (Auto) [place] % (Auto) 9.8 H Lymph # [place] # 1.1 H Baso # Seg Neutrophils % 74.2 H Seg Neuts % (Manual) Lymphocytes % (Manual) Monocytes % (Manual) Eosinophils % (Manual) Basophils % (Manual) Nucleated RBC % Seg Neutrophils # 8.6 H Seg Neutrophils # Man Lymphocytes # (Manual) Monocytes # (Manual) Eosinophils # (Manual) Basophils # (Manual) PT INR Fibrinogen dRVVT Confirm Interp Factor V Activity POC ABG pH POC ABG pCO2 POC ABG pO2 ABG pO2 ABG HCO3 ABG Base Excess ABG Hemoglobin Oxyhemoglobin Sodium Potassium 5.3 H Chloride 97.4 L Carbon Dioxide 19 L BUN 93 H Creatinine 2.6 H Glucose POC Glucose Lactic Acid Calcium Phosphorus Magnesium Direct Bilirubin AST ALT Alkaline Phosphatase Lactate Dehydrogenase Troponin T C-Reactive Protein Total Protein Albumin Prealbumin Triglycerides Cholesterol LDL Cholesterol Direct HDL Cholesterol PTH Intact Urine pH Urine WBC (Auto) Urine Creatinine Urine Total Protein Fluid Total Protein Vancomycin Trough Rheumatoid Factor Complement C4 Miscellaneous Test Crossmatch 10/30/16 10/30/16 10/31/16 17:11 23:56 00:40 WBC RBC Hgb Hct MCV MCH MCHC RDW Plt Count Lymph % (Auto) [place] % (Auto) Lymph # [place] # Baso # Seg Neutrophils % Seg Neuts % (Manual) Lymphocytes % (Manual) Monocytes % (Manual) Eosinophils % (Manual) Basophils % (Manual) Nucleated RBC % Seg Neutrophils # Seg Neutrophils # Man Lymphocytes # (Manual) Monocytes # (Manual) Eosinophils # (Manual) Basophils # (Manual) PT INR Fibrinogen dRVVT Confirm Interp Factor V Activity POC ABG pH POC ABG pCO2 POC ABG pO2 ABG pO2 ABG HCO3 ABG Base Excess ABG Hemoglobin Oxyhemoglobin Sodium Potassium Chloride Carbon Dioxide BUN Creatinine Glucose POC Glucose 106 H 117 H 120 H Lactic Acid Calcium Phosphorus Magnesium Direct Bilirubin AST ALT Alkaline Phosphatase Lactate Dehydrogenase Troponin T C-Reactive Protein Total Protein Albumin Prealbumin Triglycerides Cholesterol LDL Cholesterol Direct HDL Cholesterol PTH Intact Urine pH Urine WBC (Auto) Urine Creatinine Urine Total Protein Fluid Total Protein Vancomycin Trough Rheumatoid Factor Complement C4 Miscellaneous Test Crossmatch 10/31/16 10/31/16 10/31/16 05:43 07:15 07:15 WBC 12.1 H RBC 2.63 L Hgb 7.7 L Hct 23.3 L MCV MCH MCHC RDW 16.7 H Plt Count Lymph % (Auto) 11.7 L [place] % (Auto) 7.7 H Lymph # [place] # 0.9 H Baso # Seg Neutrophils % 78.0 H Seg Neuts % (Manual) Lymphocytes % (Manual) Monocytes % (Manual) Eosinophils % (Manual) Basophils % (Manual) Nucleated RBC % Seg Neutrophils # 9.4 H Seg Neutrophils # Man Lymphocytes # (Manual) Monocytes # (Manual) Eosinophils # (Manual) Basophils # (Manual) PT INR Fibrinogen dRVVT Confirm Interp Factor V Activity POC ABG pH POC ABG pCO2 POC ABG pO2 ABG pO2 ABG HCO3 ABG Base Excess ABG Hemoglobin Oxyhemoglobin Sodium Potassium Chloride 96.4 L Carbon Dioxide 21 L BUN 99 H Creatinine 2.6 H Glucose 144 H POC Glucose 125 H Lactic Acid Calcium Phosphorus 4.80 H Magnesium Direct Bilirubin AST ALT Alkaline Phosphatase Lactate Dehydrogenase Troponin T C-Reactive Protein Total Protein Albumin Prealbumin Triglycerides Cholesterol LDL Cholesterol Direct HDL Cholesterol PTH Intact Urine pH Urine WBC (Auto) Urine Creatinine Urine Total Protein Fluid Total Protein Vancomycin Trough Rheumatoid Factor Complement C4 Miscellaneous Test Crossmatch 10/31/16 10/31/16 11/01/16 11:46 18:34 00:20 WBC RBC Hgb Hct MCV MCH MCHC RDW Plt Count Lymph % (Auto) [place] % (Auto) Lymph # [place] # Baso # Seg Neutrophils % Seg Neuts % (Manual) Lymphocytes % (Manual) Monocytes % (Manual) Eosinophils % (Manual) Basophils % (Manual) Nucleated RBC % Seg Neutrophils # Seg Neutrophils # Man Lymphocytes # (Manual) Monocytes # (Manual) Eosinophils # (Manual) Basophils # (Manual) PT INR Fibrinogen dRVVT Confirm Interp Factor V Activity POC ABG pH POC ABG pCO2 POC ABG pO2 ABG pO2 ABG HCO3 ABG Base Excess ABG Hemoglobin Oxyhemoglobin Sodium Potassium Chloride Carbon Dioxide BUN Creatinine Glucose POC Glucose 159 H 140 H 132 H Lactic Acid Calcium Phosphorus Magnesium Direct Bilirubin AST ALT Alkaline Phosphatase Lactate Dehydrogenase Troponin T C-Reactive Protein Total Protein Albumin Prealbumin Triglycerides Cholesterol LDL Cholesterol Direct HDL Cholesterol PTH Intact Urine pH Urine WBC (Auto) Urine Creatinine Urine Total Protein Fluid Total Protein Vancomycin Trough Rheumatoid Factor Complement C4 Miscellaneous Test Crossmatch 11/01/16 11/01/16 11/01/16 04:55 04:55 06:11 WBC 11.2 H RBC 2.68 L Hgb 7.5 L Hct 23.7 L MCV MCH MCHC RDW 16.1 H Plt Count Lymph % (Auto) [place] % (Auto) 9.8 H Lymph # [place] # 1.1 H Baso # Seg Neutrophils % 70.8 H Seg Neuts % (Manual) Lymphocytes % (Manual) Monocytes % (Manual) Eosinophils % (Manual) Basophils % (Manual) Nucleated RBC % Seg Neutrophils # 7.9 H Seg Neutrophils # Man Lymphocytes # (Manual) Monocytes # (Manual) Eosinophils # (Manual) Basophils # (Manual) PT INR Fibrinogen dRVVT Confirm Interp Factor V Activity POC ABG pH POC ABG pCO2 POC ABG pO2 ABG pO2 ABG HCO3 ABG Base Excess ABG Hemoglobin Oxyhemoglobin Sodium Potassium 3.3 L D Chloride Carbon Dioxide BUN 61 H Creatinine 1.9 H Glucose 114 H POC Glucose 115 H Lactic Acid Calcium Phosphorus 1.80 L D Magnesium Direct Bilirubin AST ALT Alkaline Phosphatase Lactate Dehydrogenase Troponin T C-Reactive Protein Total Protein Albumin Prealbumin Triglycerides Cholesterol LDL Cholesterol Direct HDL Cholesterol PTH Intact Urine pH Urine WBC (Auto) Urine Creatinine Urine Total Protein Fluid Total Protein Vancomycin Trough Rheumatoid Factor Complement C4 Miscellaneous Test Crossmatch 11/01/16 11/01/16 11/01/16 12:29 18:23 23:58 WBC RBC Hgb Hct MCV MCH MCHC RDW Plt Count Lymph % (Auto) [place] % (Auto) Lymph # [place] # Baso # Seg Neutrophils % Seg Neuts % (Manual) Lymphocytes % (Manual) Monocytes % (Manual) Eosinophils % (Manual) Basophils % (Manual) Nucleated RBC % Seg Neutrophils # Seg Neutrophils # Man Lymphocytes # (Manual) Monocytes # (Manual) Eosinophils # (Manual) Basophils # (Manual) PT INR Fibrinogen dRVVT Confirm Interp Factor V Activity POC ABG pH POC ABG pCO2 POC ABG pO2 ABG pO2 ABG HCO3 ABG Base Excess ABG Hemoglobin Oxyhemoglobin Sodium Potassium Chloride Carbon Dioxide BUN Creatinine Glucose POC Glucose 142 H 143 H 128 H Lactic Acid Calcium Phosphorus Magnesium Direct Bilirubin AST ALT Alkaline Phosphatase Lactate Dehydrogenase Troponin T C-Reactive Protein Total Protein Albumin Prealbumin Triglycerides Cholesterol LDL Cholesterol Direct HDL Cholesterol PTH Intact Urine pH Urine WBC (Auto) Urine Creatinine Urine Total Protein Fluid Total Protein Vancomycin Trough Rheumatoid Factor Complement C4 Miscellaneous Test Crossmatch 11/02/16 11/02/16 11/02/16 04:16 05:29 11:58 WBC RBC Hgb Hct MCV MCH MCHC RDW Plt Count Lymph % (Auto) [place] % (Auto) Lymph # [place] # Baso # Seg Neutrophils % Seg Neuts % (Manual) Lymphocytes % (Manual) Monocytes % (Manual) Eosinophils % (Manual) Basophils % (Manual) Nucleated RBC % Seg Neutrophils # Seg Neutrophils # Man Lymphocytes # (Manual) Monocytes # (Manual) Eosinophils # (Manual) Basophils # (Manual) PT INR Fibrinogen dRVVT Confirm Interp Factor V Activity POC ABG pH POC ABG pCO2 POC ABG pO2 ABG pO2 ABG HCO3 ABG Base Excess ABG Hemoglobin Oxyhemoglobin Sodium Potassium 3.1 L Chloride Carbon Dioxide BUN 73 H Creatinine 2.3 H Glucose 112 H POC Glucose 135 H 149 H Lactic Acid Calcium Phosphorus Magnesium Direct Bilirubin AST ALT Alkaline Phosphatase Lactate Dehydrogenase Troponin T C-Reactive Protein Total Protein Albumin Prealbumin Triglycerides Cholesterol LDL Cholesterol Direct HDL Cholesterol PTH Intact Urine pH Urine WBC (Auto) Urine Creatinine Urine Total Protein Fluid Total Protein Vancomycin Trough Rheumatoid Factor Complement C4 Miscellaneous Test Crossmatch 11/02/16 11/02/16 11/03/16 17:42 22:54 06:00 WBC RBC Hgb Hct MCV MCH MCHC RDW Plt Count Lymph % (Auto) [place] % (Auto) Lymph # [place] # Baso # Seg Neutrophils % Seg Neuts % (Manual) Lymphocytes % (Manual) Monocytes % (Manual) Eosinophils % (Manual) Basophils % (Manual) Nucleated RBC % Seg Neutrophils # Seg Neutrophils # Man Lymphocytes # (Manual) Monocytes # (Manual) Eosinophils # (Manual) Basophils # (Manual) PT INR Fibrinogen dRVVT Confirm Interp Factor V Activity POC ABG pH POC ABG pCO2 POC ABG pO2 ABG pO2 ABG HCO3 ABG Base Excess ABG Hemoglobin Oxyhemoglobin Sodium Potassium Chloride 96.7 L Carbon Dioxide BUN 41 H Creatinine 1.5 H Glucose 145 H POC Glucose 182 H 115 H Lactic Acid Calcium Phosphorus 1.60 L D Magnesium 1.50 L Direct Bilirubin AST ALT Alkaline Phosphatase Lactate Dehydrogenase Troponin T C-Reactive Protein Total Protein Albumin Prealbumin Triglycerides Cholesterol LDL Cholesterol Direct HDL Cholesterol PTH Intact Urine pH Urine WBC (Auto) Urine Creatinine Urine Total Protein Fluid Total Protein Vancomycin Trough Rheumatoid Factor Complement C4 Miscellaneous Test Crossmatch 11/03/16 11/03/16 11/03/16 11:53 17:45 23:37 WBC RBC Hgb Hct MCV MCH MCHC RDW Plt Count Lymph % (Auto) [place] % (Auto) Lymph # [place] # Baso # Seg Neutrophils % Seg Neuts % (Manual) Lymphocytes % (Manual) Monocytes % (Manual) Eosinophils % (Manual) Basophils % (Manual) Nucleated RBC % Seg Neutrophils # Seg Neutrophils # Man Lymphocytes # (Manual) Monocytes # (Manual) Eosinophils # (Manual) Basophils # (Manual) PT INR Fibrinogen dRVVT Confirm Interp Factor V Activity POC ABG pH POC ABG pCO2 POC ABG pO2 ABG pO2 ABG HCO3 ABG Base Excess ABG Hemoglobin Oxyhemoglobin Sodium Potassium Chloride Carbon Dioxide BUN Creatinine Glucose POC Glucose 131 H 134 H 113 H Lactic Acid Calcium Phosphorus Magnesium Direct Bilirubin AST ALT Alkaline Phosphatase Lactate Dehydrogenase Troponin T C-Reactive Protein Total Protein Albumin Prealbumin Triglycerides Cholesterol LDL Cholesterol Direct HDL Cholesterol PTH Intact Urine pH Urine WBC (Auto) Urine Creatinine Urine Total Protein Fluid Total Protein Vancomycin Trough Rheumatoid Factor Complement C4 Miscellaneous Test Crossmatch 11/04/16 11/04/16 11/04/16 05:41 06:00 12:10 WBC RBC Hgb Hct MCV MCH MCHC RDW Plt Count Lymph % (Auto) [place] % (Auto) Lymph # [place] # Baso # Seg Neutrophils % Seg Neuts % (Manual) Lymphocytes % (Manual) Monocytes % (Manual) Eosinophils % (Manual) Basophils % (Manual) Nucleated RBC % Seg Neutrophils # Seg Neutrophils # Man Lymphocytes # (Manual) Monocytes # (Manual) Eosinophils # (Manual) Basophils # (Manual) PT INR Fibrinogen dRVVT Confirm Interp Factor V Activity POC ABG pH POC ABG pCO2 POC ABG pO2 ABG pO2 ABG HCO3 ABG Base Excess ABG Hemoglobin Oxyhemoglobin Sodium Potassium Chloride 96.7 L Carbon Dioxide BUN 52 H Creatinine 1.9 H Glucose 126 H POC Glucose 137 H 191 H Lactic Acid Calcium Phosphorus Magnesium Direct Bilirubin AST ALT Alkaline Phosphatase Lactate Dehydrogenase Troponin T C-Reactive Protein Total Protein Albumin Prealbumin Triglycerides Cholesterol LDL Cholesterol Direct HDL Cholesterol PTH Intact Urine pH Urine WBC (Auto) Urine Creatinine Urine Total Protein Fluid Total Protein Vancomycin Trough Rheumatoid Factor Complement C4 Miscellaneous Test Crossmatch 11/04/16 11/05/16 11/05/16 22:57 03:10 05:10 WBC RBC Hgb Hct MCV MCH MCHC RDW Plt Count Lymph % (Auto) [place] % (Auto) Lymph # [place] # Baso # Seg Neutrophils % Seg Neuts % (Manual) Lymphocytes % (Manual) Monocytes % (Manual) Eosinophils % (Manual) Basophils % (Manual) Nucleated RBC % Seg Neutrophils # Seg Neutrophils # Man Lymphocytes # (Manual) Monocytes # (Manual) Eosinophils # (Manual) Basophils # (Manual) PT INR Fibrinogen dRVVT Confirm Interp Factor V Activity POC ABG pH POC ABG pCO2 POC ABG pO2 ABG pO2 ABG HCO3 ABG Base Excess ABG Hemoglobin Oxyhemoglobin Sodium 136 L Potassium Chloride 97.2 L Carbon Dioxide BUN 32 H Creatinine 1.3 H Glucose 123 H POC Glucose 125 H 108 H Lactic Acid Calcium 7.8 L Phosphorus Magnesium Direct Bilirubin AST ALT Alkaline Phosphatase Lactate Dehydrogenase Troponin T C-Reactive Protein Total Protein Albumin Prealbumin Triglycerides Cholesterol LDL Cholesterol Direct HDL Cholesterol PTH Intact Urine pH Urine WBC (Auto) Urine Creatinine Urine Total Protein Fluid Total Protein Vancomycin Trough Rheumatoid Factor Complement C4 Miscellaneous Test Crossmatch 11/05/16 11/05/16 11/05/16 12:23 13:09 13:25 WBC RBC Hgb Hct MCV MCH MCHC RDW Plt Count Lymph % (Auto) [place] % (Auto) Lymph # [place] # Baso # Seg Neutrophils % Seg Neuts % (Manual) Lymphocytes % (Manual) Monocytes % (Manual) Eosinophils % (Manual) Basophils % (Manual) Nucleated RBC % Seg Neutrophils # Seg Neutrophils # Man Lymphocytes # (Manual) Monocytes # (Manual) Eosinophils # (Manual) Basophils # (Manual) PT INR Fibrinogen dRVVT Confirm Interp Factor V Activity POC ABG pH POC ABG pCO2 POC ABG pO2 ABG pO2 ABG HCO3 ABG Base Excess ABG Hemoglobin Oxyhemoglobin Sodium Potassium Chloride Carbon Dioxide BUN Creatinine Glucose POC Glucose 124 H Lactic Acid Calcium Phosphorus Magnesium Direct Bilirubin AST ALT Alkaline Phosphatase Lactate Dehydrogenase Troponin T C-Reactive Protein 11.40 H Total Protein Albumin Prealbumin Triglycerides Cholesterol LDL Cholesterol Direct HDL Cholesterol PTH Intact Urine pH 9.0 H Urine WBC (Auto) Urine Creatinine Urine Total Protein Fluid Total Protein Vancomycin Trough Rheumatoid Factor Complement C4 Miscellaneous Test Crossmatch 11/05/16 11/05/16 11/05/16 13:25 17:54 23:42 WBC RBC Hgb Hct MCV MCH MCHC RDW Plt Count Lymph % (Auto) [place] % (Auto) Lymph # [place] # Baso # Seg Neutrophils % Seg Neuts % (Manual) Lymphocytes % (Manual) Monocytes % (Manual) Eosinophils % (Manual) Basophils % (Manual) Nucleated RBC % Seg Neutrophils # Seg Neutrophils # Man Lymphocytes # (Manual) Monocytes # (Manual) Eosinophils # (Manual) Basophils # (Manual) PT INR Fibrinogen dRVVT Confirm Interp Factor V Activity POC ABG pH POC ABG pCO2 POC ABG pO2 ABG pO2 ABG HCO3 ABG Base Excess ABG Hemoglobin Oxyhemoglobin Sodium Potassium Chloride Carbon Dioxide BUN Creatinine Glucose POC Glucose 114 H 134 H Lactic Acid Calcium Phosphorus Magnesium Direct Bilirubin AST ALT Alkaline Phosphatase Lactate Dehydrogenase Troponin T C-Reactive Protein Total Protein Albumin Prealbumin Triglycerides Cholesterol LDL Cholesterol Direct HDL Cholesterol PTH Intact Urine pH Urine WBC (Auto) Urine Creatinine Urine Total Protein Fluid Total Protein Vancomycin Trough Rheumatoid Factor Complement C4 Miscellaneous Test Flexitest 1 H Crossmatch 11/06/16 11/06/16 11/06/16 04:56 06:25 06:25 WBC RBC 2.50 L Hgb 7.3 L Hct 22.5 L MCV MCH MCHC RDW 16.9 H Plt Count Lymph % (Auto) [place] % (Auto) 10.5 H Lymph # [place] # 1.1 H Baso # Seg Neutrophils % Seg Neuts % (Manual) Lymphocytes % (Manual) Monocytes % (Manual) Eosinophils % (Manual) Basophils % (Manual) Nucleated RBC % Seg Neutrophils # Seg Neutrophils # Man Lymphocytes # (Manual) Monocytes # (Manual) Eosinophils # (Manual) Basophils # (Manual) PT INR Fibrinogen dRVVT Confirm Interp Factor V Activity POC ABG pH POC ABG pCO2 POC ABG pO2 ABG pO2 ABG HCO3 ABG Base Excess ABG Hemoglobin Oxyhemoglobin Sodium Potassium 5.1 H Chloride 95.9 L Carbon Dioxide BUN 52 H Creatinine 1.8 H Glucose 117 H POC Glucose 120 H Lactic Acid Calcium Phosphorus Magnesium Direct Bilirubin AST 103 H ALT 77 H Alkaline Phosphatase 285 H Lactate Dehydrogenase Troponin T C-Reactive Protein Total Protein 6.2 L Albumin 1.8 L Prealbumin 0.180 L Triglycerides Cholesterol LDL Cholesterol Direct HDL Cholesterol PTH Intact Urine pH Urine WBC (Auto) Urine Creatinine Urine Total Protein Fluid Total Protein Vancomycin Trough Rheumatoid Factor Complement C4 Miscellaneous Test Crossmatch 11/06/16 11/06/16 11/06/16 11:56 17:14 23:52 WBC RBC Hgb Hct MCV MCH MCHC RDW Plt Count Lymph % (Auto) [place] % (Auto) Lymph # [place] # Baso # Seg Neutrophils % Seg Neuts % (Manual) Lymphocytes % (Manual) Monocytes % (Manual) Eosinophils % (Manual) Basophils % (Manual) Nucleated RBC % Seg Neutrophils # Seg Neutrophils # Man Lymphocytes # (Manual) Monocytes # (Manual) Eosinophils # (Manual) Basophils # (Manual) PT INR Fibrinogen dRVVT Confirm Interp Factor V Activity POC ABG pH POC ABG pCO2 POC ABG pO2 ABG pO2 ABG HCO3 ABG Base Excess ABG Hemoglobin Oxyhemoglobin Sodium Potassium Chloride Carbon Dioxide BUN Creatinine Glucose POC Glucose 141 H 125 H 130 H Lactic Acid Calcium Phosphorus Magnesium Direct Bilirubin AST ALT Alkaline Phosphatase Lactate Dehydrogenase Troponin T C-Reactive Protein Total Protein Albumin Prealbumin Triglycerides Cholesterol LDL Cholesterol Direct HDL Cholesterol PTH Intact Urine pH Urine WBC (Auto) Urine Creatinine Urine Total Protein Fluid Total Protein Vancomycin Trough Rheumatoid Factor Complement C4 Miscellaneous Test Crossmatch 11/07/16 11/07/16 11/07/16 06:30 06:30 09:37 WBC RBC 2.18 L Hgb 6.3 L Hct 19.7 L* MCV MCH MCHC RDW 16.8 H Plt Count Lymph % (Auto) [place] % (Auto) 10.0 H Lymph # [place] # 1.0 H Baso # Seg Neutrophils % Seg Neuts % (Manual) Lymphocytes % (Manual) Monocytes % (Manual) Eosinophils % (Manual) Basophils % (Manual) Nucleated RBC % Seg Neutrophils # Seg Neutrophils # Man Lymphocytes # (Manual) Monocytes # (Manual) Eosinophils # (Manual) Basophils # (Manual) PT INR Fibrinogen dRVVT Confirm Interp Factor V Activity POC ABG pH POC ABG pCO2 POC ABG pO2 ABG pO2 ABG HCO3 ABG Base Excess ABG Hemoglobin Oxyhemoglobin Sodium 135 L Potassium Chloride 95.6 L Carbon Dioxide BUN 70 H Creatinine 2.0 H Glucose 126 H POC Glucose Lactic Acid Calcium Phosphorus Magnesium Direct Bilirubin AST ALT Alkaline Phosphatase Lactate Dehydrogenase Troponin T C-Reactive Protein Total Protein Albumin Prealbumin Triglycerides Cholesterol LDL Cholesterol Direct HDL Cholesterol PTH Intact Urine pH Urine WBC (Auto) Urine Creatinine Urine Total Protein Fluid Total Protein Vancomycin Trough Rheumatoid Factor Complement C4 Miscellaneous Test Crossmatch See Detail 11/07/16 11/07/16 11/07/16 12:52 18:51 21:26 WBC RBC Hgb Hct MCV MCH MCHC RDW Plt Count Lymph % (Auto) [place] % (Auto) Lymph # [place] # Baso # Seg Neutrophils % Seg Neuts % (Manual) Lymphocytes % (Manual) Monocytes % (Manual) Eosinophils % (Manual) Basophils % (Manual) Nucleated RBC % Seg Neutrophils # Seg Neutrophils # Man Lymphocytes # (Manual) Monocytes # (Manual) Eosinophils # (Manual) Basophils # (Manual) PT INR Fibrinogen dRVVT Confirm Interp Factor V Activity POC ABG pH 7.523 H POC ABG pCO2 34.6 L POC ABG pO2 53 L ABG pO2 ABG HCO3 ABG Base Excess ABG Hemoglobin Oxyhemoglobin Sodium Potassium Chloride Carbon Dioxide BUN Creatinine Glucose POC Glucose 142 H 155 H Lactic Acid Calcium Phosphorus Magnesium Direct Bilirubin AST ALT Alkaline Phosphatase Lactate Dehydrogenase Troponin T C-Reactive Protein Total Protein Albumin Prealbumin Triglycerides Cholesterol LDL Cholesterol Direct HDL Cholesterol PTH Intact Urine pH Urine WBC (Auto) Urine Creatinine Urine Total Protein Fluid Total Protein Vancomycin Trough Rheumatoid Factor Complement C4 Miscellaneous Test Crossmatch 11/07/16 11/08/16 11/08/16 21:34 13:03 23:37 WBC RBC 2.63 L Hgb 7.7 L Hct 22.7 L MCV MCH MCHC RDW 17.0 H Plt Count Lymph % (Auto) [place] % (Auto) Lymph # [place] # Baso # Seg Neutrophils % Seg Neuts % (Manual) Lymphocytes % (Manual) Monocytes % (Manual) Eosinophils % (Manual) Basophils % (Manual) Nucleated RBC % Seg Neutrophils # Seg Neutrophils # Man Lymphocytes # (Manual) Monocytes # (Manual) Eosinophils # (Manual) Basophils # (Manual) PT INR Fibrinogen dRVVT Confirm Interp Factor V Activity POC ABG pH 7.478 H POC ABG pCO2 34.0 L POC ABG pO2 50 L ABG pO2 ABG HCO3 ABG Base Excess ABG Hemoglobin Oxyhemoglobin Sodium Potassium Chloride Carbon Dioxide BUN Creatinine Glucose POC Glucose 113 H Lactic Acid Calcium Phosphorus Magnesium Direct Bilirubin AST ALT Alkaline Phosphatase Lactate Dehydrogenase Troponin T C-Reactive Protein Total Protein Albumin Prealbumin Triglycerides Cholesterol LDL Cholesterol Direct HDL Cholesterol PTH Intact Urine pH Urine WBC (Auto) Urine Creatinine Urine Total Protein Fluid Total Protein Vancomycin Trough Rheumatoid Factor Complement C4 Miscellaneous Test Crossmatch 11/09/16 11/09/16 11/09/16 04:35 10:15 18:21 WBC RBC 2.68 L Hgb 7.8 L Hct 23.3 L MCV MCH MCHC RDW 17.0 H Plt Count Lymph % (Auto) [place] % (Auto) 12.1 H Lymph # [place] # 1.1 H Baso # Seg Neutrophils % Seg Neuts % (Manual) Lymphocytes % (Manual) Monocytes % (Manual) Eosinophils % (Manual) Basophils % (Manual) Nucleated RBC % Seg Neutrophils # Seg Neutrophils # Man Lymphocytes # (Manual) Monocytes # (Manual) Eosinophils # (Manual) Basophils # (Manual) PT INR Fibrinogen dRVVT Confirm Interp Factor V Activity POC ABG pH POC ABG pCO2 POC ABG pO2 ABG pO2 ABG HCO3 ABG Base Excess ABG Hemoglobin Oxyhemoglobin Sodium Potassium Chloride Carbon Dioxide BUN 51 H Creatinine 1.8 H Glucose POC Glucose 60 L Lactic Acid Calcium 8.3 L Phosphorus Magnesium Direct Bilirubin AST ALT Alkaline Phosphatase Lactate Dehydrogenase Troponin T C-Reactive Protein Total Protein Albumin Prealbumin Triglycerides Cholesterol LDL Cholesterol Direct HDL Cholesterol PTH Intact Urine pH Urine WBC (Auto) Urine Creatinine Urine Total Protein Fluid Total Protein Vancomycin Trough Rheumatoid Factor Complement C4 Miscellaneous Test Crossmatch 11/09/16 11/10/16 11/10/16 18:55 07:00 11:51 WBC RBC Hgb Hct MCV MCH MCHC RDW Plt Count Lymph % (Auto) [place] % (Auto) Lymph # [place] # Baso # Seg Neutrophils % Seg Neuts % (Manual) Lymphocytes % (Manual) Monocytes % (Manual) Eosinophils % (Manual) Basophils % (Manual) Nucleated RBC % Seg Neutrophils # Seg Neutrophils # Man Lymphocytes # (Manual) Monocytes # (Manual) Eosinophils # (Manual) Basophils # (Manual) PT INR Fibrinogen dRVVT Confirm Interp Factor V Activity POC ABG pH POC ABG pCO2 POC ABG pO2 ABG pO2 ABG HCO3 ABG Base Excess ABG Hemoglobin Oxyhemoglobin Sodium Potassium 3.0 L D Chloride 97.4 L Carbon Dioxide BUN 28 H Creatinine 1.3 H Glucose POC Glucose 68 L 120 H Lactic Acid Calcium 7.8 L Phosphorus Magnesium Direct Bilirubin AST ALT Alkaline Phosphatase Lactate Dehydrogenase Troponin T C-Reactive Protein Total Protein Albumin Prealbumin Triglycerides Cholesterol LDL Cholesterol Direct HDL Cholesterol PTH Intact Urine pH Urine WBC (Auto) Urine Creatinine Urine Total Protein Fluid Total Protein Vancomycin Trough Rheumatoid Factor Complement C4 Miscellaneous Test Crossmatch 11/10/16 11/11/16 11/11/16 14:20 06:59 06:59 WBC RBC 2.81 L Hgb 8.1 L Hct 24.4 L MCV MCH MCHC RDW 16.4 H Plt Count Lymph % (Auto) [place] % (Auto) 10.8 H Lymph # [place] # 1.0 H Baso # Seg Neutrophils % Seg Neuts % (Manual) Lymphocytes % (Manual) Monocytes % (Manual) Eosinophils % (Manual) Basophils % (Manual) Nucleated RBC % Seg Neutrophils # Seg Neutrophils # Man Lymphocytes # (Manual) Monocytes # (Manual) Eosinophils # (Manual) Basophils # (Manual) PT INR Fibrinogen dRVVT Confirm Interp Factor V Activity POC ABG pH POC ABG pCO2 POC ABG pO2 ABG pO2 ABG HCO3 ABG Base Excess ABG Hemoglobin Oxyhemoglobin Sodium Potassium Chloride Carbon Dioxide BUN Creatinine Glucose POC Glucose Lactic Acid Calcium Phosphorus Magnesium Direct Bilirubin AST ALT Alkaline Phosphatase Lactate Dehydrogenase 196 H Troponin T C-Reactive Protein Total Protein 6.1 L Albumin Prealbumin Triglycerides Cholesterol LDL Cholesterol Direct HDL Cholesterol PTH Intact Urine pH Urine WBC (Auto) Urine Creatinine Urine Total Protein Fluid Total Protein < 3.0 L Vancomycin Trough Rheumatoid Factor Complement C4 Miscellaneous Test Crossmatch 11/11/16 11/11/16 11/12/16 06:59 09:50 04:00 WBC RBC Hgb Hct MCV MCH MCHC RDW Plt Count Lymph % (Auto) [place] % (Auto) Lymph # [place] # Baso # Seg Neutrophils % Seg Neuts % (Manual) Lymphocytes % (Manual) Monocytes % (Manual) Eosinophils % (Manual) Basophils % (Manual) Nucleated RBC % Seg Neutrophils # Seg Neutrophils # Man Lymphocytes # (Manual) Monocytes # (Manual) Eosinophils # (Manual) Basophils # (Manual) PT INR 1.18 H Fibrinogen dRVVT Confirm Interp Factor V Activity POC ABG pH POC ABG pCO2 POC ABG pO2 ABG pO2 ABG HCO3 ABG Base Excess ABG Hemoglobin Oxyhemoglobin Sodium 136 L 133 L Potassium Chloride 96.1 L 94.8 L Carbon Dioxide 21 L BUN 37 H 42 H Creatinine 1.8 H 2.0 H Glucose POC Glucose Lactic Acid Calcium Phosphorus Magnesium Direct Bilirubin AST ALT Alkaline Phosphatase Lactate Dehydrogenase Troponin T C-Reactive Protein Total Protein Albumin Prealbumin Triglycerides Cholesterol LDL Cholesterol Direct HDL Cholesterol PTH Intact Urine pH Urine WBC (Auto) Urine Creatinine Urine Total Protein Fluid Total Protein Vancomycin Trough Rheumatoid Factor Complement C4 Miscellaneous Test Crossmatch 11/12/16 11/12/16 11/13/16 04:00 23:55 05:53 WBC RBC Hgb 8.9 L Hct 27.2 L MCV MCH MCHC RDW Plt Count Lymph % (Auto) [place] % (Auto) Lymph # [place] # Baso # Seg Neutrophils % Seg Neuts % (Manual) Lymphocytes % (Manual) Monocytes % (Manual) Eosinophils % (Manual) Basophils % (Manual) Nucleated RBC % Seg Neutrophils # Seg Neutrophils # Man Lymphocytes # (Manual) Monocytes # (Manual) Eosinophils # (Manual) Basophils # (Manual) PT INR Fibrinogen dRVVT Confirm Interp Factor V Activity POC ABG pH POC ABG pCO2 POC ABG pO2 ABG pO2 ABG HCO3 ABG Base Excess ABG Hemoglobin Oxyhemoglobin Sodium Potassium Chloride Carbon Dioxide BUN Creatinine Glucose POC Glucose 132 H 120 H Lactic Acid Calcium Phosphorus Magnesium Direct Bilirubin AST ALT Alkaline Phosphatase Lactate Dehydrogenase Troponin T C-Reactive Protein Total Protein Albumin Prealbumin Triglycerides Cholesterol LDL Cholesterol Direct HDL Cholesterol PTH Intact Urine pH Urine WBC (Auto) Urine Creatinine Urine Total Protein Fluid Total Protein Vancomycin Trough Rheumatoid Factor Complement C4 Miscellaneous Test Crossmatch 11/13/16 11/13/16 11/13/16 11:43 17:09 23:41 WBC RBC Hgb Hct MCV MCH MCHC RDW Plt Count Lymph % (Auto) [place] % (Auto) Lymph # [place] # Baso # Seg Neutrophils % Seg Neuts % (Manual) Lymphocytes % (Manual) Monocytes % (Manual) Eosinophils % (Manual) Basophils % (Manual) Nucleated RBC % Seg Neutrophils # Seg Neutrophils # Man Lymphocytes # (Manual) Monocytes # (Manual) Eosinophils # (Manual) Basophils # (Manual) PT INR Fibrinogen dRVVT Confirm Interp Factor V Activity POC ABG pH POC ABG pCO2 POC ABG pO2 ABG pO2 ABG HCO3 ABG Base Excess ABG Hemoglobin Oxyhemoglobin Sodium Potassium Chloride Carbon Dioxide BUN Creatinine Glucose POC Glucose 114 H 113 H 108 H Lactic Acid Calcium Phosphorus Magnesium Direct Bilirubin AST ALT Alkaline Phosphatase Lactate Dehydrogenase Troponin T C-Reactive Protein Total Protein Albumin Prealbumin Triglycerides Cholesterol LDL Cholesterol Direct HDL Cholesterol PTH Intact Urine pH Urine WBC (Auto) Urine Creatinine Urine Total Protein Fluid Total Protein Vancomycin Trough Rheumatoid Factor Complement C4 Miscellaneous Test Crossmatch 11/13/16 11/15/16 11/15/16 Unknown 00:37 03:30 WBC 11.2 H RBC 2.72 L Hgb 7.6 L Hct 23.4 L MCV MCH MCHC RDW 16.5 H Plt Count Lymph % (Auto) [place] % (Auto) Lymph # [place] # Baso # Seg Neutrophils % Seg Neuts % (Manual) Lymphocytes % (Manual) Monocytes % (Manual) Eosinophils % (Manual) Basophils % (Manual) Nucleated RBC % Seg Neutrophils # Seg Neutrophils # Man Lymphocytes # (Manual) Monocytes # (Manual) Eosinophils # (Manual) Basophils # (Manual) PT INR Fibrinogen dRVVT Confirm Interp Factor V Activity POC ABG pH POC ABG pCO2 POC ABG pO2 ABG pO2 ABG HCO3 ABG Base Excess ABG Hemoglobin Oxyhemoglobin Sodium 135 L Potassium Chloride 95.2 L Carbon Dioxide BUN 52 H Creatinine 2.2 H Glucose POC Glucose 108 H Lactic Acid Calcium Phosphorus Magnesium Direct Bilirubin AST ALT Alkaline Phosphatase Lactate Dehydrogenase Troponin T C-Reactive Protein Total Protein Albumin Prealbumin Triglycerides Cholesterol LDL Cholesterol Direct HDL Cholesterol PTH Intact Urine pH Urine WBC (Auto) Urine Creatinine Urine Total Protein Fluid Total Protein Vancomycin Trough Rheumatoid Factor Complement C4 Miscellaneous Test Crossmatch 11/15/16 11/15/16 11/15/16 03:30 05:04 11:50 WBC RBC Hgb Hct MCV MCH MCHC RDW Plt Count Lymph % (Auto) [place] % (Auto) Lymph # [place] # Baso # Seg Neutrophils % Seg Neuts % (Manual) Lymphocytes % (Manual) Monocytes % (Manual) Eosinophils % (Manual) Basophils % (Manual) Nucleated RBC % Seg Neutrophils # Seg Neutrophils # Man Lymphocytes # (Manual) Monocytes # (Manual) Eosinophils # (Manual) Basophils # (Manual) PT INR Fibrinogen dRVVT Confirm Interp Factor V Activity POC ABG pH POC ABG pCO2 POC ABG pO2 ABG pO2 ABG HCO3 ABG Base Excess ABG Hemoglobin Oxyhemoglobin Sodium Potassium 3.4 L Chloride Carbon Dioxide BUN 25 H Creatinine 1.5 H Glucose 103 H POC Glucose 121 H 144 H Lactic Acid Calcium Phosphorus Magnesium Direct Bilirubin AST ALT Alkaline Phosphatase Lactate Dehydrogenase Troponin T C-Reactive Protein Total Protein Albumin Prealbumin Triglycerides Cholesterol LDL Cholesterol Direct HDL Cholesterol PTH Intact Urine pH Urine WBC (Auto) Urine Creatinine Urine Total Protein Fluid Total Protein Vancomycin Trough Rheumatoid Factor Complement C4 Miscellaneous Test Crossmatch 11/15/16 11/15/16 11/16/16 21:28 23:20 11:44 WBC RBC Hgb Hct MCV MCH MCHC RDW Plt Count Lymph % (Auto) [place] % (Auto) Lymph # [place] # Baso # Seg Neutrophils % Seg Neuts % (Manual) Lymphocytes % (Manual) Monocytes % (Manual) Eosinophils % (Manual) Basophils % (Manual) Nucleated RBC % Seg Neutrophils # Seg Neutrophils # Man Lymphocytes # (Manual) Monocytes # (Manual) Eosinophils # (Manual) Basophils # (Manual) PT INR Fibrinogen dRVVT Confirm Interp Factor V Activity POC ABG pH 7.462 H POC ABG pCO2 POC ABG pO2 71 L ABG pO2 ABG HCO3 ABG Base Excess ABG Hemoglobin Oxyhemoglobin Sodium Potassium Chloride Carbon Dioxide BUN Creatinine Glucose POC Glucose 116 H 133 H Lactic Acid Calcium Phosphorus Magnesium Direct Bilirubin AST ALT Alkaline Phosphatase Lactate Dehydrogenase Troponin T C-Reactive Protein Total Protein Albumin Prealbumin Triglycerides Cholesterol LDL Cholesterol Direct HDL Cholesterol PTH Intact Urine pH Urine WBC (Auto) Urine Creatinine Urine Total Protein Fluid Total Protein Vancomycin Trough Rheumatoid Factor Complement C4 Miscellaneous Test Crossmatch 11/16/16 11/16/16 11/16/16 12:20 17:05 23:35 WBC 11.7 H RBC 2.73 L Hgb 7.6 L Hct 23.7 L MCV MCH MCHC RDW 16.6 H Plt Count Lymph % (Auto) [place] % (Auto) Lymph # [place] # Baso # Seg Neutrophils % Seg Neuts % (Manual) Lymphocytes % (Manual) Monocytes % (Manual) Eosinophils % (Manual) Basophils % (Manual) Nucleated RBC % Seg Neutrophils # Seg Neutrophils # Man Lymphocytes # (Manual) Monocytes # (Manual) Eosinophils # (Manual) Basophils # (Manual) PT INR Fibrinogen dRVVT Confirm Interp Factor V Activity POC ABG pH POC ABG pCO2 POC ABG pO2 ABG pO2 ABG HCO3 ABG Base Excess ABG Hemoglobin Oxyhemoglobin Sodium Potassium Chloride Carbon Dioxide BUN Creatinine Glucose POC Glucose 154 H 125 H Lactic Acid Calcium Phosphorus Magnesium Direct Bilirubin AST ALT Alkaline Phosphatase Lactate Dehydrogenase Troponin T C-Reactive Protein Total Protein Albumin Prealbumin Triglycerides Cholesterol LDL Cholesterol Direct HDL Cholesterol PTH Intact Urine pH Urine WBC (Auto) Urine Creatinine Urine Total Protein Fluid Total Protein Vancomycin Trough Rheumatoid Factor Complement C4 Miscellaneous Test Crossmatch 11/17/16 11/17/16 11/17/16 03:20 03:20 03:20 WBC RBC 2.55 L Hgb 7.3 L Hct 21.9 L MCV MCH MCHC RDW 16.6 H Plt Count Lymph % (Auto) [place] % (Auto) 11.5 H Lymph # [place] # 1.1 H Baso # Seg Neutrophils % Seg Neuts % (Manual) Lymphocytes % (Manual) Monocytes % (Manual) Eosinophils % (Manual) Basophils % (Manual) Nucleated RBC % Seg Neutrophils # Seg Neutrophils # Man Lymphocytes # (Manual) Monocytes # (Manual) Eosinophils # (Manual) Basophils # (Manual) PT 16.8 H INR 1.37 H Fibrinogen dRVVT Confirm Interp Factor V Activity POC ABG pH POC ABG pCO2 POC ABG pO2 ABG pO2 ABG HCO3 ABG Base Excess ABG Hemoglobin Oxyhemoglobin Sodium Potassium 3.5 L Chloride Carbon Dioxide BUN 21 H Creatinine Glucose POC Glucose Lactic Acid Calcium 7.9 L Phosphorus Magnesium Direct Bilirubin AST ALT Alkaline Phosphatase Lactate Dehydrogenase Troponin T C-Reactive Protein Total Protein Albumin Prealbumin Triglycerides Cholesterol LDL Cholesterol Direct HDL Cholesterol PTH Intact Urine pH Urine WBC (Auto) Urine Creatinine Urine Total Protein Fluid Total Protein Vancomycin Trough Rheumatoid Factor Complement C4 Miscellaneous Test Crossmatch 11/17/16 11/17/16 11/17/16 06:34 11:21 21:22 WBC RBC Hgb Hct MCV MCH MCHC RDW Plt Count Lymph % (Auto) [place] % (Auto) Lymph # [place] # Baso # Seg Neutrophils % Seg Neuts % (Manual) Lymphocytes % (Manual) Monocytes % (Manual) Eosinophils % (Manual) Basophils % (Manual) Nucleated RBC % Seg Neutrophils # Seg Neutrophils # Man Lymphocytes # (Manual) Monocytes # (Manual) Eosinophils # (Manual) Basophils # (Manual) PT INR Fibrinogen dRVVT Confirm Interp Factor V Activity POC ABG pH 7.467 H POC ABG pCO2 POC ABG pO2 73 L ABG pO2 ABG HCO3 ABG Base Excess ABG Hemoglobin Oxyhemoglobin Sodium Potassium Chloride Carbon Dioxide BUN Creatinine Glucose POC Glucose 121 H 119 H Lactic Acid Calcium Phosphorus Magnesium Direct Bilirubin AST ALT Alkaline Phosphatase Lactate Dehydrogenase Troponin T C-Reactive Protein Total Protein Albumin Prealbumin Triglycerides Cholesterol LDL Cholesterol Direct HDL Cholesterol PTH Intact Urine pH Urine WBC (Auto) Urine Creatinine Urine Total Protein Fluid Total Protein Vancomycin Trough Rheumatoid Factor Complement C4 Miscellaneous Test Crossmatch 11/18/16 11/18/16 11/19/16 12:16 17:19 00:00 WBC RBC Hgb Hct MCV MCH MCHC RDW Plt Count Lymph % (Auto) [place] % (Auto) Lymph # [place] # Baso # Seg Neutrophils % Seg Neuts % (Manual) Lymphocytes % (Manual) Monocytes % (Manual) Eosinophils % (Manual) Basophils % (Manual) Nucleated RBC % Seg Neutrophils # Seg Neutrophils # Man Lymphocytes # (Manual) Monocytes # (Manual) Eosinophils # (Manual) Basophils # (Manual) PT INR Fibrinogen dRVVT Confirm Interp Factor V Activity POC ABG pH POC ABG pCO2 POC ABG pO2 ABG pO2 ABG HCO3 ABG Base Excess ABG Hemoglobin Oxyhemoglobin Sodium Potassium Chloride Carbon Dioxide BUN Creatinine Glucose POC Glucose 124 H 162 H 139 H Lactic Acid Calcium Phosphorus Magnesium Direct Bilirubin AST ALT Alkaline Phosphatase Lactate Dehydrogenase Troponin T C-Reactive Protein Total Protein Albumin Prealbumin Triglycerides Cholesterol LDL Cholesterol Direct HDL Cholesterol PTH Intact Urine pH Urine WBC (Auto) Urine Creatinine Urine Total Protein Fluid Total Protein Vancomycin Trough Rheumatoid Factor Complement C4 Miscellaneous Test Crossmatch 11/19/16 11/19/16 11/20/16 05:00 12:43 00:40 WBC RBC Hgb Hct MCV MCH MCHC RDW Plt Count Lymph % (Auto) [place] % (Auto) Lymph # [place] # Baso # Seg Neutrophils % Seg Neuts % (Manual) Lymphocytes % (Manual) Monocytes % (Manual) Eosinophils % (Manual) Basophils % (Manual) Nucleated RBC % Seg Neutrophils # Seg Neutrophils # Man Lymphocytes # (Manual) Monocytes # (Manual) Eosinophils # (Manual) Basophils # (Manual) PT INR Fibrinogen dRVVT Confirm Interp Factor V Activity POC ABG pH POC ABG pCO2 POC ABG pO2 ABG pO2 ABG HCO3 ABG Base Excess ABG Hemoglobin Oxyhemoglobin Sodium Potassium Chloride Carbon Dioxide BUN Creatinine Glucose POC Glucose 110 H 125 H 136 H Lactic Acid Calcium Phosphorus Magnesium Direct Bilirubin AST ALT Alkaline Phosphatase Lactate Dehydrogenase Troponin T C-Reactive Protein Total Protein Albumin Prealbumin Triglycerides Cholesterol LDL Cholesterol Direct HDL Cholesterol PTH Intact Urine pH Urine WBC (Auto) Urine Creatinine Urine Total Protein Fluid Total Protein Vancomycin Trough Rheumatoid Factor Complement C4 Miscellaneous Test Crossmatch 11/20/16 11/20/16 11/20/16 05:00 05:00 05:51 WBC 13.1 H RBC 2.74 L Hgb 7.7 L Hct 23.6 L MCV MCH MCHC RDW 16.9 H Plt Count Lymph % (Auto) [place] % (Auto) 10.8 H Lymph # [place] # 1.4 H Baso # Seg Neutrophils % Seg Neuts % (Manual) Lymphocytes % (Manual) Monocytes % (Manual) Eosinophils % (Manual) Basophils % (Manual) Nucleated RBC % Seg Neutrophils # 7.9 H Seg Neutrophils # Man Lymphocytes # (Manual) Monocytes # (Manual) Eosinophils # (Manual) Basophils # (Manual) PT INR Fibrinogen dRVVT Confirm Interp Factor V Activity POC ABG pH POC ABG pCO2 POC ABG pO2 ABG pO2 ABG HCO3 ABG Base Excess ABG Hemoglobin Oxyhemoglobin Sodium Potassium Chloride Carbon Dioxide BUN 31 H Creatinine 1.8 H Glucose 129 H POC Glucose 133 H Lactic Acid Calcium Phosphorus Magnesium Direct Bilirubin AST ALT Alkaline Phosphatase Lactate Dehydrogenase Troponin T C-Reactive Protein Total Protein Albumin Prealbumin Triglycerides Cholesterol LDL Cholesterol Direct HDL Cholesterol PTH Intact Urine pH Urine WBC (Auto) Urine Creatinine Urine Total Protein Fluid Total Protein Vancomycin Trough Rheumatoid Factor Complement C4 Miscellaneous Test Crossmatch 11/20/16 11/20/16 11/21/16 12:40 18:10 01:20 WBC RBC Hgb Hct MCV MCH MCHC RDW Plt Count Lymph % (Auto) [place] % (Auto) Lymph # [place] # Baso # Seg Neutrophils % Seg Neuts % (Manual) Lymphocytes % (Manual) Monocytes % (Manual) Eosinophils % (Manual) Basophils % (Manual) Nucleated RBC % Seg Neutrophils # Seg Neutrophils # Man Lymphocytes # (Manual) Monocytes # (Manual) Eosinophils # (Manual) Basophils # (Manual) PT INR Fibrinogen dRVVT Confirm Interp Factor V Activity POC ABG pH POC ABG pCO2 POC ABG pO2 ABG pO2 ABG HCO3 ABG Base Excess ABG Hemoglobin Oxyhemoglobin Sodium Potassium Chloride Carbon Dioxide BUN Creatinine Glucose POC Glucose 134 H 138 H 136 H Lactic Acid Calcium Phosphorus Magnesium Direct Bilirubin AST ALT Alkaline Phosphatase Lactate Dehydrogenase Troponin T C-Reactive Protein Total Protein Albumin Prealbumin Triglycerides Cholesterol LDL Cholesterol Direct HDL Cholesterol PTH Intact Urine pH Urine WBC (Auto) Urine Creatinine Urine Total Protein Fluid Total Protein Vancomycin Trough Rheumatoid Factor Complement C4 Miscellaneous Test Crossmatch 11/21/16 11/21/16 11/21/16 07:04 07:45 07:45 WBC 22.0 H RBC 2.91 L Hgb 8.2 L Hct 25.4 L MCV MCH MCHC RDW 17.1 H Plt Count Lymph % (Auto) [place] % (Auto) Lymph # [place] # Baso # Seg Neutrophils % Seg Neuts % (Manual) Lymphocytes % (Manual) 8.0 L Monocytes % (Manual) Eosinophils % (Manual) Basophils % (Manual) Nucleated RBC % Seg Neutrophils # Seg Neutrophils # Man 14.7 H Lymphocytes # (Manual) Monocytes # (Manual) 1.1 H Eosinophils # (Manual) Basophils # (Manual) PT INR Fibrinogen dRVVT Confirm Interp Factor V Activity POC ABG pH POC ABG pCO2 POC ABG pO2 ABG pO2 ABG HCO3 ABG Base Excess ABG Hemoglobin Oxyhemoglobin Sodium Potassium Chloride Carbon Dioxide BUN 42 H Creatinine 2.0 H Glucose POC Glucose 108 H Lactic Acid Calcium Phosphorus Magnesium Direct Bilirubin AST ALT Alkaline Phosphatase Lactate Dehydrogenase Troponin T C-Reactive Protein Total Protein Albumin Prealbumin Triglycerides Cholesterol LDL Cholesterol Direct HDL Cholesterol PTH Intact Urine pH Urine WBC (Auto) Urine Creatinine Urine Total Protein Fluid Total Protein Vancomycin Trough Rheumatoid Factor Complement C4 Miscellaneous Test Crossmatch 11/21/16 11/21/16 11/21/16 08:38 10:09 11:20 WBC RBC Hgb Hct MCV MCH MCHC RDW Plt Count Lymph % (Auto) [place] % (Auto) Lymph # [place] # Baso # Seg Neutrophils % Seg Neuts % (Manual) Lymphocytes % (Manual) Monocytes % (Manual) Eosinophils % (Manual) Basophils % (Manual) Nucleated RBC % Seg Neutrophils # Seg Neutrophils # Man Lymphocytes # (Manual) Monocytes # (Manual) Eosinophils # (Manual) Basophils # (Manual) PT INR Fibrinogen dRVVT Confirm Interp Factor V Activity POC ABG pH 7.346 L POC ABG pCO2 34.4 L POC ABG pO2 314 H ABG pO2 ABG HCO3 ABG Base Excess ABG Hemoglobin Oxyhemoglobin Sodium Potassium Chloride Carbon Dioxide BUN Creatinine Glucose POC Glucose 195 H 153 H Lactic Acid Calcium Phosphorus Magnesium Direct Bilirubin AST ALT Alkaline Phosphatase Lactate Dehydrogenase Troponin T C-Reactive Protein Total Protein Albumin Prealbumin Triglycerides Cholesterol LDL Cholesterol Direct HDL Cholesterol PTH Intact Urine pH Urine WBC (Auto) Urine Creatinine Urine Total Protein Fluid Total Protein Vancomycin Trough Rheumatoid Factor Complement C4 Miscellaneous Test Crossmatch 11/21/16 11/22/16 11/22/16 23:37 04:48 05:00 WBC 29.7 H RBC 2.73 L Hgb 7.5 L Hct 24.2 L MCV MCH 27 L MCHC RDW 17.4 H Plt Count Lymph % (Auto) [place] % (Auto) Lymph # [place] # Baso # Seg Neutrophils % Seg Neuts % (Manual) Lymphocytes % (Manual) 7.0 L Monocytes % (Manual) Eosinophils % (Manual) Basophils % (Manual) Nucleated RBC % Seg Neutrophils # Seg Neutrophils # Man 15.4 H Lymphocytes # (Manual) Monocytes # (Manual) Eosinophils # (Manual) Basophils # (Manual) PT INR Fibrinogen dRVVT Confirm Interp Factor V Activity POC ABG pH POC ABG pCO2 24.6 L POC ABG pO2 189 H ABG pO2 ABG HCO3 ABG Base Excess ABG Hemoglobin Oxyhemoglobin Sodium Potassium Chloride Carbon Dioxide BUN Creatinine Glucose POC Glucose 65 L Lactic Acid Calcium Phosphorus Magnesium Direct Bilirubin AST ALT Alkaline Phosphatase Lactate Dehydrogenase Troponin T C-Reactive Protein Total Protein Albumin Prealbumin Triglycerides Cholesterol LDL Cholesterol Direct HDL Cholesterol PTH Intact Urine pH Urine WBC (Auto) Urine Creatinine Urine Total Protein Fluid Total Protein Vancomycin Trough Rheumatoid Factor Complement C4 Miscellaneous Test Crossmatch 11/22/16 11/23/16 11/23/16 05:00 03:44 04:06 WBC RBC 2.52 L Hgb 7.2 L Hct 21.5 L MCV MCH MCHC RDW 17.1 H Plt Count Lymph % (Auto) [place] % (Auto) 12.4 H Lymph # [place] # 1.4 H Baso # Seg Neutrophils % Seg Neuts % (Manual) Lymphocytes % (Manual) Monocytes % (Manual) Eosinophils % (Manual) Basophils % (Manual) Nucleated RBC % Seg Neutrophils # Seg Neutrophils # Man Lymphocytes # (Manual) Monocytes # (Manual) Eosinophils # (Manual) Basophils # (Manual) PT INR Fibrinogen dRVVT Confirm Interp Factor V Activity POC ABG pH 7.493 H POC ABG pCO2 29.5 L POC ABG pO2 49 L ABG pO2 ABG HCO3 ABG Base Excess ABG Hemoglobin Oxyhemoglobin Sodium 134 L Potassium Chloride 95.9 L Carbon Dioxide 14 L D BUN 51 H Creatinine 2.6 H Glucose POC Glucose Lactic Acid Calcium Phosphorus Magnesium Direct Bilirubin AST ALT Alkaline Phosphatase Lactate Dehydrogenase Troponin T C-Reactive Protein Total Protein Albumin Prealbumin Triglycerides Cholesterol LDL Cholesterol Direct HDL Cholesterol PTH Intact Urine pH Urine WBC (Auto) Urine Creatinine Urine Total Protein Fluid Total Protein Vancomycin Trough Rheumatoid Factor Complement C4 Miscellaneous Test Crossmatch 11/23/16 11/23/16 11/24/16 04:06 11:29 06:39 WBC RBC Hgb Hct MCV MCH MCHC RDW Plt Count Lymph % (Auto) [place] % (Auto) Lymph # [place] # Baso # Seg Neutrophils % Seg Neuts % (Manual) Lymphocytes % (Manual) Monocytes % (Manual) Eosinophils % (Manual) Basophils % (Manual) Nucleated RBC % Seg Neutrophils # Seg Neutrophils # Man Lymphocytes # (Manual) Monocytes # (Manual) Eosinophils # (Manual) Basophils # (Manual) PT INR Fibrinogen dRVVT Confirm Interp Factor V Activity POC ABG pH POC ABG pCO2 POC ABG pO2 ABG pO2 ABG HCO3 ABG Base Excess ABG Hemoglobin Oxyhemoglobin Sodium 136 L Potassium Chloride 95.2 L Carbon Dioxide BUN 60 H Creatinine 2.9 H Glucose POC Glucose 69 L 305 H Lactic Acid Calcium Phosphorus Magnesium 1.60 L Direct Bilirubin AST ALT Alkaline Phosphatase Lactate Dehydrogenase Troponin T C-Reactive Protein Total Protein Albumin Prealbumin Triglycerides Cholesterol LDL Cholesterol Direct HDL Cholesterol PTH Intact Urine pH Urine WBC (Auto) Urine Creatinine Urine Total Protein Fluid Total Protein Vancomycin Trough Rheumatoid Factor Complement C4 Miscellaneous Test Crossmatch 11/24/16 11/24/16 11/24/16 06:43 08:08 08:08 WBC 11.2 H RBC 2.47 L Hgb 6.8 L Hct 20.6 L MCV MCH MCHC RDW 17.0 H Plt Count Lymph % (Auto) [place] % (Auto) 10.3 H Lymph # [place] # 1.2 H Baso # Seg Neutrophils % Seg Neuts % (Manual) Lymphocytes % (Manual) Monocytes % (Manual) Eosinophils % (Manual) Basophils % (Manual) Nucleated RBC % Seg Neutrophils # Seg Neutrophils # Man Lymphocytes # (Manual) Monocytes # (Manual) Eosinophils # (Manual) Basophils # (Manual) PT INR Fibrinogen dRVVT Confirm Interp Factor V Activity POC ABG pH POC ABG pCO2 POC ABG pO2 ABG pO2 ABG HCO3 ABG Base Excess ABG Hemoglobin Oxyhemoglobin Sodium 135 L Potassium Chloride 96.3 L Carbon Dioxide BUN 61 H Creatinine 3.1 H Glucose POC Glucose 62 L Lactic Acid Calcium 8.2 L Phosphorus Magnesium Direct Bilirubin AST ALT Alkaline Phosphatase Lactate Dehydrogenase Troponin T C-Reactive Protein Total Protein Albumin Prealbumin Triglycerides Cholesterol LDL Cholesterol Direct HDL Cholesterol PTH Intact Urine pH Urine WBC (Auto) Urine Creatinine Urine Total Protein Fluid Total Protein Vancomycin Trough Rheumatoid Factor Complement C4 Miscellaneous Test Crossmatch 11/24/16 11/24/16 11/24/16 08:34 11:20 12:41 WBC RBC Hgb Hct MCV MCH MCHC RDW Plt Count Lymph % (Auto) [place] % (Auto) Lymph # [place] # Baso # Seg Neutrophils % Seg Neuts % (Manual) Lymphocytes % (Manual) Monocytes % (Manual) Eosinophils % (Manual) Basophils % (Manual) Nucleated RBC % Seg Neutrophils # Seg Neutrophils # Man Lymphocytes # (Manual) Monocytes # (Manual) Eosinophils # (Manual) Basophils # (Manual) PT INR Fibrinogen dRVVT Confirm Interp Factor V Activity POC ABG pH POC ABG pCO2 POC ABG pO2 ABG pO2 ABG HCO3 ABG Base Excess ABG Hemoglobin Oxyhemoglobin Sodium Potassium Chloride Carbon Dioxide BUN Creatinine Glucose POC Glucose 108 H Lactic Acid Calcium Phosphorus Magnesium 1.60 L Direct Bilirubin AST ALT Alkaline Phosphatase Lactate Dehydrogenase Troponin T C-Reactive Protein Total Protein Albumin Prealbumin Triglycerides Cholesterol LDL Cholesterol Direct HDL Cholesterol PTH Intact Urine pH Urine WBC (Auto) Urine Creatinine Urine Total Protein Fluid Total Protein Vancomycin Trough Rheumatoid Factor Complement C4 Miscellaneous Test Crossmatch See Detail 11/25/16 11/25/16 11/25/16 00:03 04:42 04:42 WBC RBC 3.03 L Hgb 8.6 L Hct 25.3 L MCV MCH MCHC RDW 16.2 H Plt Count Lymph % (Auto) [place] % (Auto) 8.1 H Lymph # [place] # Baso # Seg Neutrophils % 71.3 H Seg Neuts % (Manual) Lymphocytes % (Manual) Monocytes % (Manual) Eosinophils % (Manual) Basophils % (Manual) Nucleated RBC % Seg Neutrophils # Seg Neutrophils # Man Lymphocytes # (Manual) Monocytes # (Manual) Eosinophils # (Manual) Basophils # (Manual) PT INR Fibrinogen dRVVT Confirm Interp Factor V Activity POC ABG pH POC ABG pCO2 POC ABG pO2 ABG pO2 ABG HCO3 ABG Base Excess ABG Hemoglobin Oxyhemoglobin Sodium Potassium Chloride Carbon Dioxide BUN 61 H Creatinine 3.0 H Glucose 102 H POC Glucose 113 H Lactic Acid Calcium 8.2 L Phosphorus Magnesium Direct Bilirubin AST ALT Alkaline Phosphatase 142 H Lactate Dehydrogenase Troponin T C-Reactive Protein Total Protein 5.7 L Albumin 1.5 L Prealbumin Triglycerides Cholesterol LDL Cholesterol Direct HDL Cholesterol PTH Intact Urine pH Urine WBC (Auto) Urine Creatinine Urine Total Protein Fluid Total Protein Vancomycin Trough Rheumatoid Factor Complement C4 Miscellaneous Test Crossmatch 11/25/16 11/25/16 11/25/16 05:12 11:31 14:12 WBC RBC Hgb Hct MCV MCH MCHC RDW Plt Count Lymph % (Auto) [place] % (Auto) Lymph # [place] # Baso # Seg Neutrophils % Seg Neuts % (Manual) Lymphocytes % (Manual) Monocytes % (Manual) Eosinophils % (Manual) Basophils % (Manual) Nucleated RBC % Seg Neutrophils # Seg Neutrophils # Man Lymphocytes # (Manual) Monocytes # (Manual) Eosinophils # (Manual) Basophils # (Manual) PT INR Fibrinogen dRVVT Confirm Interp Factor V Activity POC ABG pH 7.487 H POC ABG pCO2 POC ABG pO2 153 H ABG pO2 ABG HCO3 ABG Base Excess ABG Hemoglobin Oxyhemoglobin Sodium Potassium Chloride Carbon Dioxide BUN Creatinine Glucose POC Glucose 131 H 140 H Lactic Acid Calcium Phosphorus Magnesium Direct Bilirubin AST ALT Alkaline Phosphatase Lactate Dehydrogenase Troponin T C-Reactive Protein Total Protein Albumin Prealbumin Triglycerides Cholesterol LDL Cholesterol Direct HDL Cholesterol PTH Intact Urine pH Urine WBC (Auto) Urine Creatinine Urine Total Protein Fluid Total Protein Vancomycin Trough Rheumatoid Factor Complement C4 Miscellaneous Test Crossmatch 11/25/16 11/26/16 11/26/16 17:23 00:09 05:13 WBC RBC 2.94 L Hgb 8.4 L Hct 24.6 L MCV MCH MCHC RDW 16.4 H Plt Count Lymph % (Auto) [place] % (Auto) 12.3 H Lymph # [place] # 1.1 H Baso # Seg Neutrophils % Seg Neuts % (Manual) Lymphocytes % (Manual) Monocytes % (Manual) Eosinophils % (Manual) Basophils % (Manual) Nucleated RBC % Seg Neutrophils # Seg Neutrophils # Man Lymphocytes # (Manual) Monocytes # (Manual) Eosinophils # (Manual) Basophils # (Manual) PT INR Fibrinogen dRVVT Confirm Interp Factor V Activity POC ABG pH POC ABG pCO2 POC ABG pO2 ABG pO2 ABG HCO3 ABG Base Excess ABG Hemoglobin Oxyhemoglobin Sodium Potassium Chloride Carbon Dioxide BUN Creatinine Glucose POC Glucose 146 H 112 H Lactic Acid Calcium Phosphorus Magnesium Direct Bilirubin AST ALT Alkaline Phosphatase Lactate Dehydrogenase Troponin T C-Reactive Protein Total Protein Albumin Prealbumin Triglycerides Cholesterol LDL Cholesterol Direct HDL Cholesterol PTH Intact Urine pH Urine WBC (Auto) Urine Creatinine Urine Total Protein Fluid Total Protein Vancomycin Trough Rheumatoid Factor Complement C4 Miscellaneous Test Crossmatch 11/26/16 11/26/16 11/26/16 05:13 05:28 11:53 WBC RBC Hgb Hct MCV MCH MCHC RDW Plt Count Lymph % (Auto) [place] % (Auto) Lymph # [place] # Baso # Seg Neutrophils % Seg Neuts % (Manual) Lymphocytes % (Manual) Monocytes % (Manual) Eosinophils % (Manual) Basophils % (Manual) Nucleated RBC % Seg Neutrophils # Seg Neutrophils # Man Lymphocytes # (Manual) Monocytes # (Manual) Eosinophils # (Manual) Basophils # (Manual) PT INR Fibrinogen dRVVT Confirm Interp Factor V Activity POC ABG pH POC ABG pCO2 POC ABG pO2 ABG pO2 ABG HCO3 ABG Base Excess ABG Hemoglobin Oxyhemoglobin Sodium Potassium Chloride 97.8 L Carbon Dioxide BUN 37 H Creatinine 2.0 H Glucose 109 H POC Glucose 117 H 111 H Lactic Acid Calcium 7.9 L Phosphorus 1.80 L D Magnesium Direct Bilirubin AST ALT Alkaline Phosphatase Lactate Dehydrogenase Troponin T C-Reactive Protein Total Protein Albumin Prealbumin Triglycerides Cholesterol LDL Cholesterol Direct HDL Cholesterol PTH Intact Urine pH Urine WBC (Auto) Urine Creatinine Urine Total Protein Fluid Total Protein Vancomycin Trough Rheumatoid Factor Complement C4 Miscellaneous Test Crossmatch 11/26/16 11/27/16 11/27/16 17:14 04:50 06:02 WBC RBC Hgb Hct MCV MCH MCHC RDW Plt Count Lymph % (Auto) [place] % (Auto) Lymph # [place] # Baso # Seg Neutrophils % Seg Neuts % (Manual) Lymphocytes % (Manual) Monocytes % (Manual) Eosinophils % (Manual) Basophils % (Manual) Nucleated RBC % Seg Neutrophils # Seg Neutrophils # Man Lymphocytes # (Manual) Monocytes # (Manual) Eosinophils # (Manual) Basophils # (Manual) PT INR Fibrinogen dRVVT Confirm Interp Factor V Activity POC ABG pH POC ABG pCO2 POC ABG pO2 ABG pO2 75.2 L ABG HCO3 26.4 H ABG Base Excess ABG Hemoglobin 7.6 L Oxyhemoglobin 94.8 L Sodium Potassium Chloride Carbon Dioxide BUN 49 H Creatinine 2.3 H Glucose POC Glucose 115 H Lactic Acid Calcium Phosphorus 1.50 L Magnesium Direct Bilirubin AST ALT Alkaline Phosphatase Lactate Dehydrogenase Troponin T C-Reactive Protein Total Protein Albumin Prealbumin Triglycerides Cholesterol LDL Cholesterol Direct HDL Cholesterol PTH Intact Urine pH Urine WBC (Auto) Urine Creatinine Urine Total Protein Fluid Total Protein Vancomycin Trough Rheumatoid Factor Complement C4 Miscellaneous Test Crossmatch 11/27/16 11/27/16 11/27/16 06:02 11:25 17:25 WBC 11.6 H RBC 2.75 L Hgb 7.6 L Hct 23.4 L MCV MCH MCHC RDW 16.5 H Plt Count Lymph % (Auto) [place] % (Auto) Lymph # [place] # Baso # Seg Neutrophils % Seg Neuts % (Manual) Lymphocytes % (Manual) Monocytes % (Manual) Eosinophils % (Manual) Basophils % (Manual) Nucleated RBC % Seg Neutrophils # Seg Neutrophils # Man Lymphocytes # (Manual) Monocytes # (Manual) Eosinophils # (Manual) Basophils # (Manual) PT INR Fibrinogen dRVVT Confirm Interp Factor V Activity POC ABG pH POC ABG pCO2 POC ABG pO2 ABG pO2 ABG HCO3 ABG Base Excess ABG Hemoglobin Oxyhemoglobin Sodium Potassium Chloride Carbon Dioxide BUN Creatinine Glucose POC Glucose 114 H 126 H Lactic Acid Calcium Phosphorus Magnesium Direct Bilirubin AST ALT Alkaline Phosphatase Lactate Dehydrogenase Troponin T C-Reactive Protein Total Protein Albumin Prealbumin Triglycerides Cholesterol LDL Cholesterol Direct HDL Cholesterol PTH Intact Urine pH Urine WBC (Auto) Urine Creatinine Urine Total Protein Fluid Total Protein Vancomycin Trough Rheumatoid Factor Complement C4 Miscellaneous Test Crossmatch 11/28/16 11/28/16 11/28/16 04:45 05:33 05:44 WBC RBC Hgb Hct MCV MCH MCHC RDW Plt Count Lymph % (Auto) [place] % (Auto) Lymph # [place] # Baso # Seg Neutrophils % Seg Neuts % (Manual) Lymphocytes % (Manual) Monocytes % (Manual) Eosinophils % (Manual) Basophils % (Manual) Nucleated RBC % Seg Neutrophils # Seg Neutrophils # Man Lymphocytes # (Manual) Monocytes # (Manual) Eosinophils # (Manual) Basophils # (Manual) PT INR Fibrinogen dRVVT Confirm Interp Factor V Activity POC ABG pH POC ABG pCO2 POC ABG pO2 ABG pO2 99.3 H ABG HCO3 ABG Base Excess ABG Hemoglobin 8.3 L Oxyhemoglobin Sodium Potassium Chloride Carbon Dioxide BUN 63 H Creatinine 2.4 H Glucose 102 H POC Glucose 108 H Lactic Acid Calcium Phosphorus 1.80 L Magnesium Direct Bilirubin AST ALT Alkaline Phosphatase Lactate Dehydrogenase Troponin T C-Reactive Protein Total Protein Albumin Prealbumin Triglycerides Cholesterol LDL Cholesterol Direct HDL Cholesterol PTH Intact Urine pH Urine WBC (Auto) Urine Creatinine Urine Total Protein Fluid Total Protein Vancomycin Trough Rheumatoid Factor Complement C4 Miscellaneous Test Crossmatch 11/28/16 11/28/16 11/28/16 12:31 16:09 23:46 WBC RBC Hgb Hct MCV MCH MCHC RDW Plt Count Lymph % (Auto) [place] % (Auto) Lymph # [place] # Baso # Seg Neutrophils % Seg Neuts % (Manual) Lymphocytes % (Manual) Monocytes % (Manual) Eosinophils % (Manual) Basophils % (Manual) Nucleated RBC % Seg Neutrophils # Seg Neutrophils # Man Lymphocytes # (Manual) Monocytes # (Manual) Eosinophils # (Manual) Basophils # (Manual) PT INR Fibrinogen dRVVT Confirm Interp Factor V Activity POC ABG pH POC ABG pCO2 POC ABG pO2 ABG pO2 ABG HCO3 ABG Base Excess ABG Hemoglobin Oxyhemoglobin Sodium Potassium Chloride Carbon Dioxide BUN Creatinine Glucose POC Glucose 126 H 111 H 119 H Lactic Acid Calcium Phosphorus Magnesium Direct Bilirubin AST ALT Alkaline Phosphatase Lactate Dehydrogenase Troponin T C-Reactive Protein Total Protein Albumin Prealbumin Triglycerides Cholesterol LDL Cholesterol Direct HDL Cholesterol PTH Intact Urine pH Urine WBC (Auto) Urine Creatinine Urine Total Protein Fluid Total Protein Vancomycin Trough Rheumatoid Factor Complement C4 Miscellaneous Test Crossmatch 11/29/16 11/29/16 11/29/16 03:33 04:52 05:10 WBC RBC Hgb Hct MCV MCH MCHC RDW Plt Count Lymph % (Auto) [place] % (Auto) Lymph # [place] # Baso # Seg Neutrophils % Seg Neuts % (Manual) Lymphocytes % (Manual) Monocytes % (Manual) Eosinophils % (Manual) Basophils % (Manual) Nucleated RBC % Seg Neutrophils # Seg Neutrophils # Man Lymphocytes # (Manual) Monocytes # (Manual) Eosinophils # (Manual) Basophils # (Manual) PT INR Fibrinogen dRVVT Confirm Interp Factor V Activity POC ABG pH POC ABG pCO2 POC ABG pO2 ABG pO2 ABG HCO3 ABG Base Excess ABG Hemoglobin 7.0 L Oxyhemoglobin 94.9 L Sodium Potassium Chloride Carbon Dioxide BUN 73 H Creatinine 2.7 H Glucose POC Glucose 108 H Lactic Acid Calcium Phosphorus Magnesium Direct Bilirubin AST ALT Alkaline Phosphatase Lactate Dehydrogenase Troponin T C-Reactive Protein Total Protein Albumin Prealbumin Triglycerides Cholesterol LDL Cholesterol Direct HDL Cholesterol PTH Intact Urine pH Urine WBC (Auto) Urine Creatinine Urine Total Protein Fluid Total Protein Vancomycin Trough Rheumatoid Factor Complement C4 Miscellaneous Test Crossmatch 11/29/16 11/29/16 11/29/16 12:16 18:05 23:46 WBC RBC Hgb Hct MCV MCH MCHC RDW Plt Count Lymph % (Auto) [place] % (Auto) Lymph # [place] # Baso # Seg Neutrophils % Seg Neuts % (Manual) Lymphocytes % (Manual) Monocytes % (Manual) Eosinophils % (Manual) Basophils % (Manual) Nucleated RBC % Seg Neutrophils # Seg Neutrophils # Man Lymphocytes # (Manual) Monocytes # (Manual) Eosinophils # (Manual) Basophils # (Manual) PT INR Fibrinogen dRVVT Confirm Interp Factor V Activity POC ABG pH POC ABG pCO2 POC ABG pO2 ABG pO2 ABG HCO3 ABG Base Excess ABG Hemoglobin Oxyhemoglobin Sodium Potassium Chloride Carbon Dioxide BUN Creatinine Glucose POC Glucose 133 H 146 H 141 H Lactic Acid Calcium Phosphorus Magnesium Direct Bilirubin AST ALT Alkaline Phosphatase Lactate Dehydrogenase Troponin T C-Reactive Protein Total Protein Albumin Prealbumin Triglycerides Cholesterol LDL Cholesterol Direct HDL Cholesterol PTH Intact Urine pH Urine WBC (Auto) Urine Creatinine Urine Total Protein Fluid Total Protein Vancomycin Trough Rheumatoid Factor Complement C4 Miscellaneous Test Crossmatch 11/30/16 11/30/16 11/30/16 04:17 04:17 04:32 WBC 12.0 H RBC 2.80 L Hgb 7.8 L Hct 23.6 L MCV MCH MCHC RDW 16.6 H Plt Count Lymph % (Auto) [place] % (Auto) 11.3 H Lymph # [place] # 1.4 H Baso # Seg Neutrophils % Seg Neuts % (Manual) Lymphocytes % (Manual) Monocytes % (Manual) Eosinophils % (Manual) Basophils % (Manual) Nucleated RBC % Seg Neutrophils # 8.2 H Seg Neutrophils # Man Lymphocytes # (Manual) Monocytes # (Manual) Eosinophils # (Manual) Basophils # (Manual) PT INR Fibrinogen dRVVT Confirm Interp Factor V Activity POC ABG pH POC ABG pCO2 POC ABG pO2 ABG pO2 ABG HCO3 ABG Base Excess ABG Hemoglobin Oxyhemoglobin Sodium 169 H* D Potassium 5.1 H Chloride 121.5 H Carbon Dioxide BUN 34 H Creatinine 1.3 H D Glucose 133 H POC Glucose 131 H Lactic Acid Calcium 10.3 H Phosphorus Magnesium Direct Bilirubin AST ALT Alkaline Phosphatase Lactate Dehydrogenase Troponin T C-Reactive Protein Total Protein Albumin Prealbumin Triglycerides Cholesterol LDL Cholesterol Direct HDL Cholesterol PTH Intact Urine pH Urine WBC (Auto) Urine Creatinine Urine Total Protein Fluid Total Protein Vancomycin Trough Rheumatoid Factor Complement C4 Miscellaneous Test Crossmatch 11/30/16 11/30/16 11/30/16 05:45 11:10 17:26 WBC RBC Hgb Hct MCV MCH MCHC RDW Plt Count Lymph % (Auto) [place] % (Auto) Lymph # [place] # Baso # Seg Neutrophils % Seg Neuts % (Manual) Lymphocytes % (Manual) Monocytes % (Manual) Eosinophils % (Manual) Basophils % (Manual) Nucleated RBC % Seg Neutrophils # Seg Neutrophils # Man Lymphocytes # (Manual) Monocytes # (Manual) Eosinophils # (Manual) Basophils # (Manual) PT INR Fibrinogen dRVVT Confirm Interp Factor V Activity POC ABG pH POC ABG pCO2 POC ABG pO2 ABG pO2 ABG HCO3 ABG Base Excess ABG Hemoglobin Oxyhemoglobin Sodium Potassium Chloride Carbon Dioxide BUN 45 H Creatinine 1.6 H Glucose 131 H POC Glucose 146 H 134 H Lactic Acid Calcium Phosphorus Magnesium Direct Bilirubin AST ALT Alkaline Phosphatase Lactate Dehydrogenase Troponin T C-Reactive Protein Total Protein Albumin Prealbumin Triglycerides Cholesterol LDL Cholesterol Direct HDL Cholesterol PTH Intact Urine pH Urine WBC (Auto) Urine Creatinine Urine Total Protein Fluid Total Protein Vancomycin Trough Rheumatoid Factor Complement C4 Miscellaneous Test Crossmatch 1012/01/16 12/01/16 23:35 00:06 03:35 WBC RBC Hgb Hct MCV MCH MCHC RDW Plt Count Lymph % (Auto) [place] % (Auto) Lymph # [place] # Baso # Seg Neutrophils % Seg Neuts % (Manual) Lymphocytes % (Manual) Monocytes % (Manual) Eosinophils % (Manual) Basophils % (Manual) Nucleated RBC % Seg Neutrophils # Seg Neutrophils # Man Lymphocytes # (Manual) Monocytes # (Manual) Eosinophils # (Manual) Basophils # (Manual) PT INR Fibrinogen dRVVT Confirm Interp Factor V Activity POC ABG pH POC ABG pCO2 POC ABG pO2 ABG pO2 ABG HCO3 ABG Base Excess ABG Hemoglobin 6.9 L Oxyhemoglobin Sodium Potassium Chloride Carbon Dioxide BUN 58 H Creatinine 1.8 H Glucose 146 H POC Glucose 151 H Lactic Acid Calcium Phosphorus Magnesium Direct Bilirubin AST ALT Alkaline Phosphatase Lactate Dehydrogenase Troponin T C-Reactive Protein Total Protein Albumin Prealbumin Triglycerides Cholesterol LDL Cholesterol Direct HDL Cholesterol PTH Intact Urine pH Urine WBC (Auto) Urine Creatinine Urine Total Protein Fluid Total Protein Vancomycin Trough Rheumatoid Factor Complement C4 Miscellaneous Test Crossmatch 12/01/16 12/01/16 12/01/16 03:35 05:47 11:52 WBC 12.3 H RBC 2.82 L Hgb 7.8 L Hct 23.7 L MCV MCH MCHC RDW 16.7 H Plt Count Lymph % (Auto) [place] % (Auto) 9.8 H Lymph # [place] # 1.2 H Baso # Seg Neutrophils % Seg Neuts % (Manual) Lymphocytes % (Manual) Monocytes % (Manual) Eosinophils % (Manual) Basophils % (Manual) Nucleated RBC % Seg Neutrophils # 8.4 H Seg Neutrophils # Man Lymphocytes # (Manual) Monocytes # (Manual) Eosinophils # (Manual) Basophils # (Manual) PT INR Fibrinogen dRVVT Confirm Interp Factor V Activity POC ABG pH POC ABG pCO2 POC ABG pO2 ABG pO2 ABG HCO3 ABG Base Excess ABG Hemoglobin Oxyhemoglobin Sodium Potassium Chloride Carbon Dioxide BUN Creatinine Glucose POC Glucose 152 H 152 H Lactic Acid Calcium Phosphorus Magnesium Direct Bilirubin AST ALT Alkaline Phosphatase Lactate Dehydrogenase Troponin T C-Reactive Protein Total Protein Albumin Prealbumin Triglycerides Cholesterol LDL Cholesterol Direct HDL Cholesterol PTH Intact Urine pH Urine WBC (Auto) Urine Creatinine Urine Total Protein Fluid Total Protein Vancomycin Trough Rheumatoid Factor Complement C4 Miscellaneous Test Crossmatch 1012/01/16 12/02/16 17:40 23:41 05:00 WBC RBC Hgb Hct MCV MCH MCHC RDW Plt Count Lymph % (Auto) [place] % (Auto) Lymph # [place] # Baso # Seg Neutrophils % Seg Neuts % (Manual) Lymphocytes % (Manual) Monocytes % (Manual) Eosinophils % (Manual) Basophils % (Manual) Nucleated RBC % Seg Neutrophils # Seg Neutrophils # Man Lymphocytes # (Manual) Monocytes # (Manual) Eosinophils # (Manual) Basophils # (Manual) PT INR Fibrinogen dRVVT Confirm Interp Factor V Activity POC ABG pH POC ABG pCO2 POC ABG pO2 ABG pO2 ABG HCO3 ABG Base Excess ABG Hemoglobin Oxyhemoglobin Sodium Potassium Chloride Carbon Dioxide BUN 45 H Creatinine Glucose 115 H POC Glucose 140 H 144 H Lactic Acid Calcium Phosphorus Magnesium Direct Bilirubin AST ALT Alkaline Phosphatase Lactate Dehydrogenase Troponin T C-Reactive Protein Total Protein Albumin Prealbumin Triglycerides Cholesterol LDL Cholesterol Direct HDL Cholesterol PTH Intact Urine pH Urine WBC (Auto) Urine Creatinine Urine Total Protein Fluid Total Protein Vancomycin Trough Rheumatoid Factor Complement C4 Miscellaneous Test Crossmatch 12/02/16 12/02/16 12/02/16 05:31 11:20 17:38 WBC RBC Hgb Hct MCV MCH MCHC RDW Plt Count Lymph % (Auto) [place] % (Auto) Lymph # [place] # Baso # Seg Neutrophils % Seg Neuts % (Manual) Lymphocytes % (Manual) Monocytes % (Manual) Eosinophils % (Manual) Basophils % (Manual) Nucleated RBC % Seg Neutrophils # Seg Neutrophils # Man Lymphocytes # (Manual) Monocytes # (Manual) Eosinophils # (Manual) Basophils # (Manual) PT INR Fibrinogen dRVVT Confirm Interp Factor V Activity POC ABG pH POC ABG pCO2 POC ABG pO2 ABG pO2 ABG HCO3 ABG Base Excess ABG Hemoglobin Oxyhemoglobin Sodium Potassium Chloride Carbon Dioxide BUN Creatinine Glucose POC Glucose 136 H 177 H 139 H Lactic Acid Calcium Phosphorus Magnesium Direct Bilirubin AST ALT Alkaline Phosphatase Lactate Dehydrogenase Troponin T C-Reactive Protein Total Protein Albumin Prealbumin Triglycerides Cholesterol LDL Cholesterol Direct HDL Cholesterol PTH Intact Urine pH Urine WBC (Auto) Urine Creatinine Urine Total Protein Fluid Total Protein Vancomycin Trough Rheumatoid Factor Complement C4 Miscellaneous Test Crossmatch 12/02/16 12/03/16 12/03/16 23:43 04:00 04:00 WBC 20.4 H RBC 2.74 L Hgb 7.4 L Hct 23.6 L MCV MCH 27 L MCHC RDW 17.1 H Plt Count Lymph % (Auto) [place] % (Auto) Lymph # [place] # Baso # Seg Neutrophils % Seg Neuts % (Manual) 31.0 L Lymphocytes % (Manual) Monocytes % (Manual) Eosinophils % (Manual) Basophils % (Manual) Nucleated RBC % Seg Neutrophils # Seg Neutrophils # Man Lymphocytes # (Manual) Monocytes # (Manual) Eosinophils # (Manual) Basophils # (Manual) PT INR Fibrinogen dRVVT Confirm Interp Factor V Activity POC ABG pH POC ABG pCO2 POC ABG pO2 ABG pO2 ABG HCO3 ABG Base Excess ABG Hemoglobin Oxyhemoglobin Sodium Potassium Chloride Carbon Dioxide BUN 61 H Creatinine 1.6 H Glucose 119 H POC Glucose 158 H Lactic Acid Calcium Phosphorus Magnesium Direct Bilirubin AST ALT Alkaline Phosphatase Lactate Dehydrogenase Troponin T C-Reactive Protein Total Protein Albumin Prealbumin Triglycerides Cholesterol LDL Cholesterol Direct HDL Cholesterol PTH Intact Urine pH Urine WBC (Auto) Urine Creatinine Urine Total Protein Fluid Total Protein Vancomycin Trough Rheumatoid Factor Complement C4 Miscellaneous Test Crossmatch 12/03/16 12/03/16 12/03/16 05:02 12:11 18:16 WBC RBC Hgb Hct MCV MCH MCHC RDW Plt Count Lymph % (Auto) [place] % (Auto) Lymph # [place] # Baso # Seg Neutrophils % Seg Neuts % (Manual) Lymphocytes % (Manual) Monocytes % (Manual) Eosinophils % (Manual) Basophils % (Manual) Nucleated RBC % Seg Neutrophils # Seg Neutrophils # Man Lymphocytes # (Manual) Monocytes # (Manual) Eosinophils # (Manual) Basophils # (Manual) PT INR Fibrinogen dRVVT Confirm Interp Factor V Activity POC ABG pH POC ABG pCO2 POC ABG pO2 ABG pO2 ABG HCO3 ABG Base Excess ABG Hemoglobin Oxyhemoglobin Sodium Potassium Chloride Carbon Dioxide BUN Creatinine Glucose POC Glucose 146 H 157 H 124 H Lactic Acid Calcium Phosphorus Magnesium Direct Bilirubin AST ALT Alkaline Phosphatase Lactate Dehydrogenase Troponin T C-Reactive Protein Total Protein Albumin Prealbumin Triglycerides Cholesterol LDL Cholesterol Direct HDL Cholesterol PTH Intact Urine pH Urine WBC (Auto) Urine Creatinine Urine Total Protein Fluid Total Protein Vancomycin Trough Rheumatoid Factor Complement C4 Miscellaneous Test Crossmatch 12/03/16 12/04/16 12/04/16 23:41 04:00 04:45 WBC RBC Hgb Hct MCV MCH MCHC RDW Plt Count Lymph % (Auto) [place] % (Auto) Lymph # [place] # Baso # Seg Neutrophils % Seg Neuts % (Manual) Lymphocytes % (Manual) Monocytes % (Manual) Eosinophils % (Manual) Basophils % (Manual) Nucleated RBC % Seg Neutrophils # Seg Neutrophils # Man Lymphocytes # (Manual) Monocytes # (Manual) Eosinophils # (Manual) Basophils # (Manual) PT INR Fibrinogen dRVVT Confirm Interp Factor V Activity POC ABG pH POC ABG pCO2 POC ABG pO2 ABG pO2 ABG HCO3 ABG Base Excess ABG Hemoglobin Oxyhemoglobin Sodium Potassium Chloride Carbon Dioxide BUN 76 H Creatinine 1.6 H Glucose POC Glucose 130 H 136 H Lactic Acid Calcium Phosphorus Magnesium Direct Bilirubin AST ALT Alkaline Phosphatase 155 H Lactate Dehydrogenase Troponin T C-Reactive Protein Total Protein 5.5 L Albumin 1.5 L Prealbumin Triglycerides Cholesterol LDL Cholesterol Direct HDL Cholesterol PTH Intact Urine pH Urine WBC (Auto) Urine Creatinine Urine Total Protein Fluid Total Protein Vancomycin Trough Rheumatoid Factor Complement C4 Miscellaneous Test Crossmatch 12/04/16 12/04/16 12/05/16 12:08 17:23 00:10 WBC RBC Hgb Hct MCV MCH MCHC RDW Plt Count Lymph % (Auto) [place] % (Auto) Lymph # [place] # Baso # Seg Neutrophils % Seg Neuts % (Manual) Lymphocytes % (Manual) Monocytes % (Manual) Eosinophils % (Manual) Basophils % (Manual) Nucleated RBC % Seg Neutrophils # Seg Neutrophils # Man Lymphocytes # (Manual) Monocytes # (Manual) Eosinophils # (Manual) Basophils # (Manual) PT INR Fibrinogen dRVVT Confirm Interp Factor V Activity POC ABG pH POC ABG pCO2 POC ABG pO2 ABG pO2 ABG HCO3 ABG Base Excess ABG Hemoglobin Oxyhemoglobin Sodium Potassium Chloride Carbon Dioxide BUN Creatinine Glucose POC Glucose 114 H 129 H 124 H Lactic Acid Calcium Phosphorus Magnesium Direct Bilirubin AST ALT Alkaline Phosphatase Lactate Dehydrogenase Troponin T C-Reactive Protein Total Protein Albumin Prealbumin Triglycerides Cholesterol LDL Cholesterol Direct HDL Cholesterol PTH Intact Urine pH Urine WBC (Auto) Urine Creatinine Urine Total Protein Fluid Total Protein Vancomycin Trough Rheumatoid Factor Complement C4 Miscellaneous Test Crossmatch 12/05/16 12/05/16 12/05/16 05:00 05:00 05:18 WBC RBC Hgb Hct MCV MCH MCHC RDW Plt Count Lymph % (Auto) [place] % (Auto) Lymph # [place] # Baso # Seg Neutrophils % Seg Neuts % (Manual) Lymphocytes % (Manual) Monocytes % (Manual) Eosinophils % (Manual) Basophils % (Manual) Nucleated RBC % Seg Neutrophils # Seg Neutrophils # Man Lymphocytes # (Manual) Monocytes # (Manual) Eosinophils # (Manual) Basophils # (Manual) PT INR Fibrinogen dRVVT Confirm Interp Factor V Activity POC ABG pH POC ABG pCO2 POC ABG pO2 ABG pO2 ABG HCO3 ABG Base Excess ABG Hemoglobin Oxyhemoglobin Sodium Potassium Chloride Carbon Dioxide 21 L BUN 85 H Creatinine 1.9 H Glucose 131 H POC Glucose 154 H Lactic Acid Calcium Phosphorus Magnesium Direct Bilirubin AST ALT Alkaline Phosphatase Lactate Dehydrogenase Troponin T C-Reactive Protein 19.30 H Total Protein Albumin Prealbumin Triglycerides Cholesterol LDL Cholesterol Direct HDL Cholesterol PTH Intact Urine pH Urine WBC (Auto) Urine Creatinine Urine Total Protein Fluid Total Protein Vancomycin Trough Rheumatoid Factor Complement C4 Miscellaneous Test Crossmatch 12/05/16 12/05/16 12/05/16 11:43 17:46 23:25 WBC RBC Hgb Hct MCV MCH MCHC RDW Plt Count Lymph % (Auto) [place] % (Auto) Lymph # [place] # Baso # Seg Neutrophils % Seg Neuts % (Manual) Lymphocytes % (Manual) Monocytes % (Manual) Eosinophils % (Manual) Basophils % (Manual) Nucleated RBC % Seg Neutrophils # Seg Neutrophils # Man Lymphocytes # (Manual) Monocytes # (Manual) Eosinophils # (Manual) Basophils # (Manual) PT INR Fibrinogen dRVVT Confirm Interp Factor V Activity POC ABG pH POC ABG pCO2 POC ABG pO2 ABG pO2 ABG HCO3 ABG Base Excess ABG Hemoglobin Oxyhemoglobin Sodium Potassium Chloride Carbon Dioxide BUN Creatinine Glucose POC Glucose 117 H 113 H 111 H Lactic Acid Calcium Phosphorus Magnesium Direct Bilirubin AST ALT Alkaline Phosphatase Lactate Dehydrogenase Troponin T C-Reactive Protein Total Protein Albumin Prealbumin Triglycerides Cholesterol LDL Cholesterol Direct HDL Cholesterol PTH Intact Urine pH Urine WBC (Auto) Urine Creatinine Urine Total Protein Fluid Total Protein Vancomycin Trough Rheumatoid Factor Complement C4 Miscellaneous Test Crossmatch 12/05/16 12/06/16 12/06/16 Unknown 04:58 06:00 WBC RBC Hgb Hct MCV MCH MCHC RDW Plt Count Lymph % (Auto) [place] % (Auto) Lymph # [place] # Baso # Seg Neutrophils % Seg Neuts % (Manual) Lymphocytes % (Manual) Monocytes % (Manual) Eosinophils % (Manual) Basophils % (Manual) Nucleated RBC % Seg Neutrophils # Seg Neutrophils # Man Lymphocytes # (Manual) Monocytes # (Manual) Eosinophils # (Manual) Basophils # (Manual) PT INR Fibrinogen dRVVT Confirm Interp Factor V Activity POC ABG pH POC ABG pCO2 POC ABG pO2 ABG pO2 75.2 L ABG HCO3 ABG Base Excess -3.4 L ABG Hemoglobin 7.4 L Oxyhemoglobin 94.5 L Sodium Potassium Chloride Carbon Dioxide 20 L BUN 99 H Creatinine 2.1 H Glucose 126 H POC Glucose 145 H Lactic Acid Calcium Phosphorus 4.80 H Magnesium Direct Bilirubin AST ALT Alkaline Phosphatase Lactate Dehydrogenase Troponin T C-Reactive Protein Total Protein Albumin Prealbumin Triglycerides Cholesterol LDL Cholesterol Direct HDL Cholesterol PTH Intact Urine pH Urine WBC (Auto) Urine Creatinine Urine Total Protein Fluid Total Protein Vancomycin Trough Rheumatoid Factor Complement C4 Miscellaneous Test Crossmatch 12/06/16 12/06/16 12/06/16 06:46 11:54 17:55 WBC RBC Hgb 8.3 L Hct 26.4 L MCV MCH MCHC RDW Plt Count Lymph % (Auto) [place] % (Auto) Lymph # [place] # Baso # Seg Neutrophils % Seg Neuts % (Manual) Lymphocytes % (Manual) Monocytes % (Manual) Eosinophils % (Manual) Basophils % (Manual) Nucleated RBC % Seg Neutrophils # Seg Neutrophils # Man Lymphocytes # (Manual) Monocytes # (Manual) Eosinophils # (Manual) Basophils # (Manual) PT INR Fibrinogen dRVVT Confirm Interp Factor V Activity POC ABG pH POC ABG pCO2 POC ABG pO2 ABG pO2 ABG HCO3 ABG Base Excess ABG Hemoglobin Oxyhemoglobin Sodium Potassium Chloride Carbon Dioxide BUN Creatinine Glucose POC Glucose 126 H 157 H Lactic Acid Calcium Phosphorus Magnesium Direct Bilirubin AST ALT Alkaline Phosphatase Lactate Dehydrogenase Troponin T C-Reactive Protein Total Protein Albumin Prealbumin Triglycerides Cholesterol LDL Cholesterol Direct HDL Cholesterol PTH Intact Urine pH Urine WBC (Auto) Urine Creatinine Urine Total Protein Fluid Total Protein Vancomycin Trough Rheumatoid Factor Complement C4 Miscellaneous Test Crossmatch 12/06/16 12/07/16 12/07/16 23:59 05:34 06:30 WBC RBC Hgb Hct MCV MCH MCHC RDW Plt Count Lymph % (Auto) [place] % (Auto) Lymph # [place] # Baso # Seg Neutrophils % Seg Neuts % (Manual) Lymphocytes % (Manual) Monocytes % (Manual) Eosinophils % (Manual) Basophils % (Manual) Nucleated RBC % Seg Neutrophils # Seg Neutrophils # Man Lymphocytes # (Manual) Monocytes # (Manual) Eosinophils # (Manual) Basophils # (Manual) PT INR Fibrinogen dRVVT Confirm Interp Factor V Activity POC ABG pH POC ABG pCO2 POC ABG pO2 ABG pO2 ABG HCO3 ABG Base Excess ABG Hemoglobin Oxyhemoglobin Sodium Potassium Chloride Carbon Dioxide BUN 67 H Creatinine 1.4 H Glucose 126 H POC Glucose 129 H 129 H Lactic Acid Calcium Phosphorus Magnesium Direct Bilirubin AST ALT Alkaline Phosphatase Lactate Dehydrogenase Troponin T C-Reactive Protein Total Protein Albumin Prealbumin Triglycerides Cholesterol LDL Cholesterol Direct HDL Cholesterol PTH Intact Urine pH Urine WBC (Auto) Urine Creatinine Urine Total Protein Fluid Total Protein Vancomycin Trough Rheumatoid Factor Complement C4 Miscellaneous Test Crossmatch 12/07/16 12/07/16 12/07/16 06:30 08:00 09:45 WBC 18.8 H RBC 2.52 L Hgb 6.9 L 6.8 L Hct 21.2 L 21.1 L MCV MCH 27 L MCHC RDW 18.0 H Plt Count Lymph % (Auto) [place] % (Auto) 9.9 H Lymph # [place] # 1.9 H Baso # Seg Neutrophils % 71.8 H Seg Neuts % (Manual) Lymphocytes % (Manual) Monocytes % (Manual) Eosinophils % (Manual) Basophils % (Manual) Nucleated RBC % Seg Neutrophils # 13.5 H Seg Neutrophils # Man Lymphocytes # (Manual) Monocytes # (Manual) Eosinophils # (Manual) Basophils # (Manual) PT INR Fibrinogen dRVVT Confirm Interp Factor V Activity POC ABG pH POC ABG pCO2 POC ABG pO2 ABG pO2 ABG HCO3 ABG Base Excess ABG Hemoglobin Oxyhemoglobin Sodium Potassium Chloride Carbon Dioxide BUN Creatinine Glucose POC Glucose Lactic Acid Calcium Phosphorus Magnesium Direct Bilirubin AST ALT Alkaline Phosphatase Lactate Dehydrogenase Troponin T C-Reactive Protein Total Protein Albumin Prealbumin Triglycerides Cholesterol LDL Cholesterol Direct HDL Cholesterol PTH Intact Urine pH Urine WBC (Auto) Urine Creatinine Urine Total Protein Fluid Total Protein Vancomycin Trough Rheumatoid Factor Complement C4 Miscellaneous Test Crossmatch See Detail 12/07/16 12/07/16 12/07/16 11:44 18:19 23:59 WBC RBC Hgb Hct MCV MCH MCHC RDW Plt Count Lymph % (Auto) [place] % (Auto) Lymph # [place] # Baso # Seg Neutrophils % Seg Neuts % (Manual) Lymphocytes % (Manual) Monocytes % (Manual) Eosinophils % (Manual) Basophils % (Manual) Nucleated RBC % Seg Neutrophils # Seg Neutrophils # Man Lymphocytes # (Manual) Monocytes # (Manual) Eosinophils # (Manual) Basophils # (Manual) PT INR Fibrinogen dRVVT Confirm Interp Factor V Activity POC ABG pH POC ABG pCO2 POC ABG pO2 ABG pO2 ABG HCO3 ABG Base Excess ABG Hemoglobin Oxyhemoglobin Sodium Potassium Chloride Carbon Dioxide BUN Creatinine Glucose POC Glucose 137 H 138 H 133 H Lactic Acid Calcium Phosphorus Magnesium Direct Bilirubin AST ALT Alkaline Phosphatase Lactate Dehydrogenase Troponin T C-Reactive Protein Total Protein Albumin Prealbumin Triglycerides Cholesterol LDL Cholesterol Direct HDL Cholesterol PTH Intact Urine pH Urine WBC (Auto) Urine Creatinine Urine Total Protein Fluid Total Protein Vancomycin Trough Rheumatoid Factor Complement C4 Miscellaneous Test Crossmatch 12/08/16 12/08/16 12/08/16 05:25 05:30 05:30 WBC 23.8 H RBC 2.88 L Hgb 8.1 L Hct 24.3 L MCV MCH MCHC RDW 16.7 H Plt Count Lymph % (Auto) [place] % (Auto) Lymph # [place] # Baso # Seg Neutrophils % Seg Neuts % (Manual) 76.0 H Lymphocytes % (Manual) 9.0 L Monocytes % (Manual) 9.0 H Eosinophils % (Manual) Basophils % (Manual) Nucleated RBC % Seg Neutrophils # Seg Neutrophils # Man 18.1 H Lymphocytes # (Manual) Monocytes # (Manual) 2.1 H Eosinophils # (Manual) Basophils # (Manual) PT INR Fibrinogen dRVVT Confirm Interp Factor V Activity POC ABG pH POC ABG pCO2 POC ABG pO2 ABG pO2 ABG HCO3 ABG Base Excess ABG Hemoglobin Oxyhemoglobin Sodium Potassium Chloride Carbon Dioxide 21 L BUN 76 H Creatinine 1.6 H Glucose 133 H POC Glucose 177 H Lactic Acid Calcium Phosphorus Magnesium Direct Bilirubin AST ALT Alkaline Phosphatase Lactate Dehydrogenase Troponin T C-Reactive Protein Total Protein Albumin Prealbumin Triglycerides Cholesterol LDL Cholesterol Direct HDL Cholesterol PTH Intact Urine pH Urine WBC (Auto) Urine Creatinine Urine Total Protein Fluid Total Protein Vancomycin Trough Rheumatoid Factor Complement C4 Miscellaneous Test Crossmatch 12/08/16 12/08/16 12/09/16 11:45 18:00 00:00 WBC RBC Hgb Hct MCV MCH MCHC RDW Plt Count Lymph % (Auto) [place] % (Auto) Lymph # [place] # Baso # Seg Neutrophils % Seg Neuts % (Manual) Lymphocytes % (Manual) Monocytes % (Manual) Eosinophils % (Manual) Basophils % (Manual) Nucleated RBC % Seg Neutrophils # Seg Neutrophils # Man Lymphocytes # (Manual) Monocytes # (Manual) Eosinophils # (Manual) Basophils # (Manual) PT INR Fibrinogen dRVVT Confirm Interp Factor V Activity POC ABG pH POC ABG pCO2 POC ABG pO2 ABG pO2 ABG HCO3 ABG Base Excess ABG Hemoglobin Oxyhemoglobin Sodium Potassium Chloride Carbon Dioxide BUN Creatinine Glucose POC Glucose 163 H 123 H 137 H Lactic Acid Calcium Phosphorus Magnesium Direct Bilirubin AST ALT Alkaline Phosphatase Lactate Dehydrogenase Troponin T C-Reactive Protein Total Protein Albumin Prealbumin Triglycerides Cholesterol LDL Cholesterol Direct HDL Cholesterol PTH Intact Urine pH Urine WBC (Auto) Urine Creatinine Urine Total Protein Fluid Total Protein Vancomycin Trough Rheumatoid Factor Complement C4 Miscellaneous Test Crossmatch 12/09/16 12/09/16 12/09/16 05:34 06:00 06:00 WBC 15.5 H RBC 2.87 L Hgb 8.0 L Hct 24.2 L MCV MCH MCHC RDW 17.2 H Plt Count Lymph % (Auto) [place] % (Auto) 11.6 H Lymph # [place] # 1.8 H Baso # Seg Neutrophils % 70.8 H Seg Neuts % (Manual) Lymphocytes % (Manual) Monocytes % (Manual) Eosinophils % (Manual) Basophils % (Manual) Nucleated RBC % Seg Neutrophils # 11.0 H Seg Neutrophils # Man Lymphocytes # (Manual) Monocytes # (Manual) Eosinophils # (Manual) Basophils # (Manual) PT INR Fibrinogen dRVVT Confirm Interp Factor V Activity POC ABG pH POC ABG pCO2 POC ABG pO2 ABG pO2 ABG HCO3 ABG Base Excess ABG Hemoglobin Oxyhemoglobin Sodium Potassium Chloride Carbon Dioxide BUN 51 H Creatinine Glucose 117 H POC Glucose 136 H Lactic Acid Calcium Phosphorus Magnesium Direct Bilirubin AST ALT Alkaline Phosphatase Lactate Dehydrogenase Troponin T C-Reactive Protein Total Protein Albumin Prealbumin Triglycerides Cholesterol LDL Cholesterol Direct HDL Cholesterol PTH Intact Urine pH Urine WBC (Auto) Urine Creatinine Urine Total Protein Fluid Total Protein Vancomycin Trough Rheumatoid Factor Complement C4 Miscellaneous Test Crossmatch 12/09/16 12/09/16 12/09/16 12:29 17:52 23:10 WBC RBC Hgb Hct MCV MCH MCHC RDW Plt Count Lymph % (Auto) [place] % (Auto) Lymph # [place] # Baso # Seg Neutrophils % Seg Neuts % (Manual) Lymphocytes % (Manual) Monocytes % (Manual) Eosinophils % (Manual) Basophils % (Manual) Nucleated RBC % Seg Neutrophils # Seg Neutrophils # Man Lymphocytes # (Manual) Monocytes # (Manual) Eosinophils # (Manual) Basophils # (Manual) PT INR Fibrinogen dRVVT Confirm Interp Factor V Activity POC ABG pH POC ABG pCO2 POC ABG pO2 ABG pO2 ABG HCO3 ABG Base Excess ABG Hemoglobin Oxyhemoglobin Sodium Potassium Chloride Carbon Dioxide BUN Creatinine Glucose POC Glucose 139 H 140 H 129 H Lactic Acid Calcium Phosphorus Magnesium Direct Bilirubin AST ALT Alkaline Phosphatase Lactate Dehydrogenase Troponin T C-Reactive Protein Total Protein Albumin Prealbumin Triglycerides Cholesterol LDL Cholesterol Direct HDL Cholesterol PTH Intact Urine pH Urine WBC (Auto) Urine Creatinine Urine Total Protein Fluid Total Protein Vancomycin Trough Rheumatoid Factor Complement C4 Miscellaneous Test Crossmatch 12/10/16 12/10/16 12/10/16 05:00 05:00 06:54 WBC 15.7 H RBC 2.87 L Hgb 8.2 L Hct 24.4 L MCV MCH MCHC RDW 17.2 H Plt Count Lymph % (Auto) [place] % (Auto) 8.3 H Lymph # [place] # 1.3 H Baso # Seg Neutrophils % 72.8 H Seg Neuts % (Manual) Lymphocytes % (Manual) Monocytes % (Manual) Eosinophils % (Manual) Basophils % (Manual) Nucleated RBC % Seg Neutrophils # 11.4 H Seg Neutrophils # Man Lymphocytes # (Manual) Monocytes # (Manual) Eosinophils # (Manual) Basophils # (Manual) PT INR Fibrinogen dRVVT Confirm Interp Factor V Activity POC ABG pH POC ABG pCO2 POC ABG pO2 ABG pO2 ABG HCO3 ABG Base Excess ABG Hemoglobin Oxyhemoglobin Sodium Potassium Chloride Carbon Dioxide BUN 64 H Creatinine 1.4 H Glucose 134 H POC Glucose 154 H Lactic Acid Calcium Phosphorus Magnesium Direct Bilirubin AST ALT Alkaline Phosphatase Lactate Dehydrogenase Troponin T C-Reactive Protein Total Protein Albumin Prealbumin Triglycerides Cholesterol LDL Cholesterol Direct HDL Cholesterol PTH Intact Urine pH Urine WBC (Auto) Urine Creatinine Urine Total Protein Fluid Total Protein Vancomycin Trough Rheumatoid Factor Complement C4 Miscellaneous Test Crossmatch 12/10/16 12/10/16 12/10/16 11:58 17:29 23:52 WBC RBC Hgb Hct MCV MCH MCHC RDW Plt Count Lymph % (Auto) [place] % (Auto) Lymph # [place] # Baso # Seg Neutrophils % Seg Neuts % (Manual) Lymphocytes % (Manual) Monocytes % (Manual) Eosinophils % (Manual) Basophils % (Manual) Nucleated RBC % Seg Neutrophils # Seg Neutrophils # Man Lymphocytes # (Manual) Monocytes # (Manual) Eosinophils # (Manual) Basophils # (Manual) PT INR Fibrinogen dRVVT Confirm Interp Factor V Activity POC ABG pH POC ABG pCO2 POC ABG pO2 ABG pO2 ABG HCO3 ABG Base Excess ABG Hemoglobin Oxyhemoglobin Sodium Potassium Chloride Carbon Dioxide BUN Creatinine Glucose POC Glucose 144 H 163 H 125 H Lactic Acid Calcium Phosphorus Magnesium Direct Bilirubin AST ALT Alkaline Phosphatase Lactate Dehydrogenase Troponin T C-Reactive Protein Total Protein Albumin Prealbumin Triglycerides Cholesterol LDL Cholesterol Direct HDL Cholesterol PTH Intact Urine pH Urine WBC (Auto) Urine Creatinine Urine Total Protein Fluid Total Protein Vancomycin Trough Rheumatoid Factor Complement C4 Miscellaneous Test Crossmatch 12/11/16 12/11/16 12/11/16 05:38 06:30 06:30 WBC 14.4 H RBC 2.76 L Hgb 7.7 L Hct 23.4 L MCV MCH MCHC RDW 17.2 H Plt Count Lymph % (Auto) [place] % (Auto) 8.8 H Lymph # [place] # 1.3 H Baso # Seg Neutrophils % 72.5 H Seg Neuts % (Manual) Lymphocytes % (Manual) Monocytes % (Manual) Eosinophils % (Manual) Basophils % (Manual) Nucleated RBC % Seg Neutrophils # 10.5 H Seg Neutrophils # Man Lymphocytes # (Manual) Monocytes # (Manual) Eosinophils # (Manual) Basophils # (Manual) PT INR Fibrinogen dRVVT Confirm Interp Factor V Activity POC ABG pH POC ABG pCO2 POC ABG pO2 ABG pO2 ABG HCO3 ABG Base Excess ABG Hemoglobin Oxyhemoglobin Sodium Potassium Chloride Carbon Dioxide BUN 43 H Creatinine Glucose 124 H POC Glucose 141 H Lactic Acid Calcium 8.3 L Phosphorus Magnesium 1.60 L Direct Bilirubin AST ALT Alkaline Phosphatase Lactate Dehydrogenase Troponin T C-Reactive Protein Total Protein Albumin Prealbumin Triglycerides Cholesterol LDL Cholesterol Direct HDL Cholesterol PTH Intact Urine pH Urine WBC (Auto) Urine Creatinine Urine Total Protein Fluid Total Protein Vancomycin Trough Rheumatoid Factor Complement C4 Miscellaneous Test Crossmatch 12/11/16 12/11/16 12/11/16 11:15 17:59 23:48 WBC RBC Hgb Hct MCV MCH MCHC RDW Plt Count Lymph % (Auto) [place] % (Auto) Lymph # [place] # Baso # Seg Neutrophils % Seg Neuts % (Manual) Lymphocytes % (Manual) Monocytes % (Manual) Eosinophils % (Manual) Basophils % (Manual) Nucleated RBC % Seg Neutrophils # Seg Neutrophils # Man Lymphocytes # (Manual) Monocytes # (Manual) Eosinophils # (Manual) Basophils # (Manual) PT INR Fibrinogen dRVVT Confirm Interp Factor V Activity POC ABG pH POC ABG pCO2 POC ABG pO2 ABG pO2 ABG HCO3 ABG Base Excess ABG Hemoglobin Oxyhemoglobin Sodium Potassium Chloride Carbon Dioxide BUN Creatinine Glucose POC Glucose 188 H 106 H 119 H Lactic Acid Calcium Phosphorus Magnesium Direct Bilirubin AST ALT Alkaline Phosphatase Lactate Dehydrogenase Troponin T C-Reactive Protein Total Protein Albumin Prealbumin Triglycerides Cholesterol LDL Cholesterol Direct HDL Cholesterol PTH Intact Urine pH Urine WBC (Auto) Urine Creatinine Urine Total Protein Fluid Total Protein Vancomycin Trough Rheumatoid Factor Complement C4 Miscellaneous Test Crossmatch 12/12/16 12/12/16 12/12/16 05:00 06:01 12:20 WBC 16.7 H RBC 2.87 L Hgb 8.0 L Hct 24.2 L MCV MCH MCHC RDW 17.6 H Plt Count Lymph % (Auto) [place] % (Auto) Lymph # [place] # 1.2 H Baso # Seg Neutrophils % 75.3 H Seg Neuts % (Manual) Lymphocytes % (Manual) Monocytes % (Manual) Eosinophils % (Manual) Basophils % (Manual) Nucleated RBC % Seg Neutrophils # 12.6 H Seg Neutrophils # Man Lymphocytes # (Manual) Monocytes # (Manual) Eosinophils # (Manual) Basophils # (Manual) PT INR Fibrinogen dRVVT Confirm Interp Factor V Activity POC ABG pH POC ABG pCO2 POC ABG pO2 ABG pO2 ABG HCO3 ABG Base Excess ABG Hemoglobin Oxyhemoglobin Sodium Potassium Chloride Carbon Dioxide BUN Creatinine Glucose POC Glucose 134 H 149 H Lactic Acid Calcium Phosphorus Magnesium Direct Bilirubin AST ALT Alkaline Phosphatase Lactate Dehydrogenase Troponin T C-Reactive Protein Total Protein Albumin Prealbumin Triglycerides Cholesterol LDL Cholesterol Direct HDL Cholesterol PTH Intact Urine pH Urine WBC (Auto) Urine Creatinine Urine Total Protein Fluid Total Protein Vancomycin Trough Rheumatoid Factor Complement C4 Miscellaneous Test Crossmatch 12/12/16 12/12/16 12/12/16 17:38 23:01 Unknown WBC RBC Hgb Hct MCV MCH MCHC RDW Plt Count Lymph % (Auto) [place] % (Auto) Lymph # [place] # Baso # Seg Neutrophils % Seg Neuts % (Manual) Lymphocytes % (Manual) Monocytes % (Manual) Eosinophils % (Manual) Basophils % (Manual) Nucleated RBC % Seg Neutrophils # Seg Neutrophils # Man Lymphocytes # (Manual) Monocytes # (Manual) Eosinophils # (Manual) Basophils # (Manual) PT INR Fibrinogen dRVVT Confirm Interp Factor V Activity POC ABG pH POC ABG pCO2 POC ABG pO2 ABG pO2 ABG HCO3 ABG Base Excess ABG Hemoglobin Oxyhemoglobin Sodium Potassium Chloride Carbon Dioxide BUN 60 H Creatinine 1.3 H Glucose 126 H POC Glucose 127 H 144 H Lactic Acid Calcium Phosphorus Magnesium Direct Bilirubin AST ALT Alkaline Phosphatase Lactate Dehydrogenase Troponin T C-Reactive Protein Total Protein Albumin Prealbumin Triglycerides Cholesterol LDL Cholesterol Direct HDL Cholesterol PTH Intact Urine pH Urine WBC (Auto) Urine Creatinine Urine Total Protein Fluid Total Protein Vancomycin Trough Rheumatoid Factor Complement C4 Miscellaneous Test Crossmatch 12/13/16 12/13/16 12/13/16 04:00 04:00 05:19 WBC 18.7 H RBC 2.89 L Hgb 8.3 L Hct 24.6 L MCV MCH MCHC RDW 17.5 H Plt Count Lymph % (Auto) [place] % (Auto) Lymph # [place] # 1.3 H Baso # Seg Neutrophils % 71.5 H Seg Neuts % (Manual) Lymphocytes % (Manual) Monocytes % (Manual) Eosinophils % (Manual) Basophils % (Manual) Nucleated RBC % Seg Neutrophils # 13.4 H Seg Neutrophils # Man Lymphocytes # (Manual) Monocytes # (Manual) Eosinophils # (Manual) Basophils # (Manual) PT INR Fibrinogen dRVVT Confirm Interp Factor V Activity POC ABG pH POC ABG pCO2 POC ABG pO2 ABG pO2 ABG HCO3 ABG Base Excess ABG Hemoglobin Oxyhemoglobin Sodium Potassium Chloride Carbon Dioxide BUN 73 H Creatinine 1.5 H Glucose 141 H POC Glucose 171 H Lactic Acid Calcium Phosphorus Magnesium Direct Bilirubin AST ALT Alkaline Phosphatase Lactate Dehydrogenase Troponin T C-Reactive Protein Total Protein Albumin Prealbumin Triglycerides Cholesterol LDL Cholesterol Direct HDL Cholesterol PTH Intact Urine pH Urine WBC (Auto) Urine Creatinine Urine Total Protein Fluid Total Protein Vancomycin Trough Rheumatoid Factor Complement C4 Miscellaneous Test Crossmatch 12/13/16 12/13/16 12/14/16 12:28 16:48 00:01 WBC RBC Hgb Hct MCV MCH MCHC RDW Plt Count Lymph % (Auto) [place] % (Auto) Lymph # [place] # Baso # Seg Neutrophils % Seg Neuts % (Manual) Lymphocytes % (Manual) Monocytes % (Manual) Eosinophils % (Manual) Basophils % (Manual) Nucleated RBC % Seg Neutrophils # Seg Neutrophils # Man Lymphocytes # (Manual) Monocytes # (Manual) Eosinophils # (Manual) Basophils # (Manual) PT INR Fibrinogen dRVVT Confirm Interp Factor V Activity POC ABG pH POC ABG pCO2 POC ABG pO2 ABG pO2 ABG HCO3 ABG Base Excess ABG Hemoglobin Oxyhemoglobin Sodium Potassium Chloride Carbon Dioxide BUN Creatinine Glucose POC Glucose 206 H 173 H 139 H Lactic Acid Calcium Phosphorus Magnesium Direct Bilirubin AST ALT Alkaline Phosphatase Lactate Dehydrogenase Troponin T C-Reactive Protein Total Protein Albumin Prealbumin Triglycerides Cholesterol LDL Cholesterol Direct HDL Cholesterol PTH Intact Urine pH Urine WBC (Auto) Urine Creatinine Urine Total Protein Fluid Total Protein Vancomycin Trough Rheumatoid Factor Complement C4 Miscellaneous Test Crossmatch 12/14/16 12/14/16 12/14/16 05:16 06:10 11:17 WBC RBC Hgb Hct MCV MCH MCHC RDW Plt Count Lymph % (Auto) [place] % (Auto) Lymph # [place] # Baso # Seg Neutrophils % Seg Neuts % (Manual) Lymphocytes % (Manual) Monocytes % (Manual) Eosinophils % (Manual) Basophils % (Manual) Nucleated RBC % Seg Neutrophils # Seg Neutrophils # Man Lymphocytes # (Manual) Monocytes # (Manual) Eosinophils # (Manual) Basophils # (Manual) PT INR Fibrinogen dRVVT Confirm Interp Factor V Activity POC ABG pH POC ABG pCO2 POC ABG pO2 ABG pO2 ABG HCO3 ABG Base Excess ABG Hemoglobin Oxyhemoglobin Sodium Potassium Chloride Carbon Dioxide BUN 57 H Creatinine 1.4 H Glucose 135 H POC Glucose 158 H 137 H Lactic Acid Calcium Phosphorus Magnesium Direct Bilirubin AST ALT Alkaline Phosphatase Lactate Dehydrogenase Troponin T C-Reactive Protein Total Protein Albumin Prealbumin Triglycerides Cholesterol LDL Cholesterol Direct HDL Cholesterol PTH Intact Urine pH Urine WBC (Auto) Urine Creatinine Urine Total Protein Fluid Total Protein Vancomycin Trough Rheumatoid Factor Complement C4 Miscellaneous Test Crossmatch 12/14/16 12/14/16 12/15/16 17:52 23:27 04:00 WBC RBC Hgb Hct MCV MCH MCHC RDW Plt Count Lymph % (Auto) [place] % (Auto) Lymph # [place] # Baso # Seg Neutrophils % Seg Neuts % (Manual) Lymphocytes % (Manual) Monocytes % (Manual) Eosinophils % (Manual) Basophils % (Manual) Nucleated RBC % Seg Neutrophils # Seg Neutrophils # Man Lymphocytes # (Manual) Monocytes # (Manual) Eosinophils # (Manual) Basophils # (Manual) PT INR Fibrinogen dRVVT Confirm Interp Factor V Activity POC ABG pH POC ABG pCO2 POC ABG pO2 ABG pO2 ABG HCO3 ABG Base Excess ABG Hemoglobin Oxyhemoglobin Sodium Potassium Chloride 97.9 L Carbon Dioxide BUN 75 H Creatinine 1.6 H Glucose 122 H POC Glucose 149 H 163 H Lactic Acid Calcium Phosphorus 5.20 H Magnesium Direct Bilirubin AST ALT Alkaline Phosphatase Lactate Dehydrogenase Troponin T C-Reactive Protein Total Protein Albumin Prealbumin Triglycerides Cholesterol LDL Cholesterol Direct HDL Cholesterol PTH Intact Urine pH Urine WBC (Auto) Urine Creatinine Urine Total Protein Fluid Total Protein Vancomycin Trough Rheumatoid Factor Complement C4 Miscellaneous Test Crossmatch 12/15/16 12/15/16 12/15/16 05:50 11:24 17:01 WBC RBC Hgb Hct MCV MCH MCHC RDW Plt Count Lymph % (Auto) [place] % (Auto) Lymph # [place] # Baso # Seg Neutrophils % Seg Neuts % (Manual) Lymphocytes % (Manual) Monocytes % (Manual) Eosinophils % (Manual) Basophils % (Manual) Nucleated RBC % Seg Neutrophils # Seg Neutrophils # Man Lymphocytes # (Manual) Monocytes # (Manual) Eosinophils # (Manual) Basophils # (Manual) PT INR Fibrinogen dRVVT Confirm Interp Factor V Activity POC ABG pH POC ABG pCO2 POC ABG pO2 ABG pO2 ABG HCO3 ABG Base Excess ABG Hemoglobin Oxyhemoglobin Sodium Potassium Chloride Carbon Dioxide BUN Creatinine Glucose POC Glucose 150 H 146 H 167 H Lactic Acid Calcium Phosphorus Magnesium Direct Bilirubin AST ALT Alkaline Phosphatase Lactate Dehydrogenase Troponin T C-Reactive Protein Total Protein Albumin Prealbumin Triglycerides Cholesterol LDL Cholesterol Direct HDL Cholesterol PTH Intact Urine pH Urine WBC (Auto) Urine Creatinine Urine Total Protein Fluid Total Protein Vancomycin Trough Rheumatoid Factor Complement C4 Miscellaneous Test Crossmatch 12/15/16 12/16/16 12/16/16 23:34 05:25 11:24 WBC RBC Hgb Hct MCV MCH MCHC RDW Plt Count Lymph % (Auto) [place] % (Auto) Lymph # [place] # Baso # Seg Neutrophils % Seg Neuts % (Manual) Lymphocytes % (Manual) Monocytes % (Manual) Eosinophils % (Manual) Basophils % (Manual) Nucleated RBC % Seg Neutrophils # Seg Neutrophils # Man Lymphocytes # (Manual) Monocytes # (Manual) Eosinophils # (Manual) Basophils # (Manual) PT INR Fibrinogen dRVVT Confirm Interp Factor V Activity POC ABG pH POC ABG pCO2 POC ABG pO2 ABG pO2 ABG HCO3 ABG Base Excess ABG Hemoglobin Oxyhemoglobin Sodium Potassium Chloride Carbon Dioxide BUN Creatinine Glucose POC Glucose 127 H 139 H 165 H Lactic Acid Calcium Phosphorus Magnesium Direct Bilirubin AST ALT Alkaline Phosphatase Lactate Dehydrogenase Troponin T C-Reactive Protein Total Protein Albumin Prealbumin Triglycerides Cholesterol LDL Cholesterol Direct HDL Cholesterol PTH Intact Urine pH Urine WBC (Auto) Urine Creatinine Urine Total Protein Fluid Total Protein Vancomycin Trough Rheumatoid Factor Complement C4 Miscellaneous Test Crossmatch 12/16/16 12/16/16 12/16/16 15:30 16:25 17:31 WBC 17.8 H RBC 2.38 L Hgb 6.4 L Hct 20.3 L MCV MCH 27 L MCHC RDW 17.4 H Plt Count Lymph % (Auto) [place] % (Auto) Lymph # [place] # Baso # Seg Neutrophils % Seg Neuts % (Manual) Lymphocytes % (Manual) Monocytes % (Manual) 10.0 H Eosinophils % (Manual) Basophils % (Manual) Nucleated RBC % Seg Neutrophils # Seg Neutrophils # Man 8.5 H Lymphocytes # (Manual) Monocytes # (Manual) 1.8 H Eosinophils # (Manual) Basophils # (Manual) PT INR Fibrinogen dRVVT Confirm Interp Factor V Activity POC ABG pH POC ABG pCO2 POC ABG pO2 ABG pO2 ABG HCO3 ABG Base Excess ABG Hemoglobin Oxyhemoglobin Sodium Potassium Chloride Carbon Dioxide BUN Creatinine Glucose POC Glucose 176 H Lactic Acid Calcium Phosphorus Magnesium Direct Bilirubin AST ALT Alkaline Phosphatase Lactate Dehydrogenase Troponin T C-Reactive Protein Total Protein Albumin Prealbumin Triglycerides Cholesterol LDL Cholesterol Direct HDL Cholesterol PTH Intact Urine pH Urine WBC (Auto) Urine Creatinine Urine Total Protein Fluid Total Protein Vancomycin Trough Rheumatoid Factor Complement C4 Miscellaneous Test Crossmatch See Detail 12/17/16 12/17/16 12/17/16 00:14 04:00 05:00 WBC 20.0 H RBC 2.99 L Hgb 8.5 L Hct 25.7 L MCV MCH MCHC RDW 17.2 H Plt Count Lymph % (Auto) [place] % (Auto) Lymph # [place] # Baso # Seg Neutrophils % Seg Neuts % (Manual) Lymphocytes % (Manual) Monocytes % (Manual) Eosinophils % (Manual) Basophils % (Manual) Nucleated RBC % Seg Neutrophils # Seg Neutrophils # Man Lymphocytes # (Manual) Monocytes # (Manual) Eosinophils # (Manual) Basophils # (Manual) PT INR Fibrinogen dRVVT Confirm Interp Factor V Activity POC ABG pH POC ABG pCO2 POC ABG pO2 ABG pO2 ABG HCO3 ABG Base Excess ABG Hemoglobin Oxyhemoglobin Sodium Potassium Chloride 97.7 L Carbon Dioxide BUN 73 H Creatinine 1.7 H Glucose 136 H POC Glucose 148 H Lactic Acid Calcium Phosphorus 2.20 L Magnesium 2.70 H Direct Bilirubin AST ALT Alkaline Phosphatase Lactate Dehydrogenase Troponin T C-Reactive Protein Total Protein Albumin Prealbumin Triglycerides Cholesterol LDL Cholesterol Direct HDL Cholesterol PTH Intact Urine pH Urine WBC (Auto) Urine Creatinine Urine Total Protein Fluid Total Protein Vancomycin Trough Rheumatoid Factor Complement C4 Miscellaneous Test Crossmatch 12/17/16 12/17/16 12/17/16 05:39 12:50 16:32 WBC RBC Hgb Hct MCV MCH MCHC RDW Plt Count Lymph % (Auto) [place] % (Auto) Lymph # [place] # Baso # Seg Neutrophils % Seg Neuts % (Manual) Lymphocytes % (Manual) Monocytes % (Manual) Eosinophils % (Manual) Basophils % (Manual) Nucleated RBC % Seg Neutrophils # Seg Neutrophils # Man Lymphocytes # (Manual) Monocytes # (Manual) Eosinophils # (Manual) Basophils # (Manual) PT INR Fibrinogen dRVVT Confirm Interp Factor V Activity POC ABG pH POC ABG pCO2 POC ABG pO2 ABG pO2 ABG HCO3 ABG Base Excess ABG Hemoglobin Oxyhemoglobin Sodium Potassium Chloride Carbon Dioxide BUN Creatinine Glucose POC Glucose 162 H 146 H 169 H Lactic Acid Calcium Phosphorus Magnesium Direct Bilirubin AST ALT Alkaline Phosphatase Lactate Dehydrogenase Troponin T C-Reactive Protein Total Protein Albumin Prealbumin Triglycerides Cholesterol LDL Cholesterol Direct HDL Cholesterol PTH Intact Urine pH Urine WBC (Auto) Urine Creatinine Urine Total Protein Fluid Total Protein Vancomycin Trough Rheumatoid Factor Complement C4 Miscellaneous Test Crossmatch 12/17/16 12/18/16 12/18/16 23:57 05:00 05:32 WBC RBC Hgb Hct MCV MCH MCHC RDW Plt Count Lymph % (Auto) [place] % (Auto) Lymph # [place] # Baso # Seg Neutrophils % Seg Neuts % (Manual) Lymphocytes % (Manual) Monocytes % (Manual) Eosinophils % (Manual) Basophils % (Manual) Nucleated RBC % Seg Neutrophils # Seg Neutrophils # Man Lymphocytes # (Manual) Monocytes # (Manual) Eosinophils # (Manual) Basophils # (Manual) PT INR Fibrinogen dRVVT Confirm Interp Factor V Activity POC ABG pH POC ABG pCO2 POC ABG pO2 ABG pO2 ABG HCO3 ABG Base Excess ABG Hemoglobin Oxyhemoglobin Sodium Potassium Chloride 97.0 L Carbon Dioxide BUN 63 H Creatinine 1.4 H Glucose 174 H POC Glucose 145 H 201 H Lactic Acid Calcium Phosphorus 1.70 L D Magnesium Direct Bilirubin AST ALT Alkaline Phosphatase 257 H Lactate Dehydrogenase Troponin T C-Reactive Protein Total Protein 5.9 L Albumin 1.8 L Prealbumin Triglycerides Cholesterol LDL Cholesterol Direct HDL Cholesterol PTH Intact Urine pH Urine WBC (Auto) Urine Creatinine Urine Total Protein Fluid Total Protein Vancomycin Trough Rheumatoid Factor Complement C4 Miscellaneous Test Crossmatch 12/18/16 12/18/16 12/18/16 11:43 16:52 23:52 WBC RBC Hgb Hct MCV MCH MCHC RDW Plt Count Lymph % (Auto) [place] % (Auto) Lymph # [place] # Baso # Seg Neutrophils % Seg Neuts % (Manual) Lymphocytes % (Manual) Monocytes % (Manual) Eosinophils % (Manual) Basophils % (Manual) Nucleated RBC % Seg Neutrophils # Seg Neutrophils # Man Lymphocytes # (Manual) Monocytes # (Manual) Eosinophils # (Manual) Basophils # (Manual) PT INR Fibrinogen dRVVT Confirm Interp Factor V Activity POC ABG pH POC ABG pCO2 POC ABG pO2 ABG pO2 ABG HCO3 ABG Base Excess ABG Hemoglobin Oxyhemoglobin Sodium Potassium Chloride Carbon Dioxide BUN Creatinine Glucose POC Glucose 177 H 110 H 162 H Lactic Acid Calcium Phosphorus Magnesium Direct Bilirubin AST ALT Alkaline Phosphatase Lactate Dehydrogenase Troponin T C-Reactive Protein Total Protein Albumin Prealbumin Triglycerides Cholesterol LDL Cholesterol Direct HDL Cholesterol PTH Intact Urine pH Urine WBC (Auto) Urine Creatinine Urine Total Protein Fluid Total Protein Vancomycin Trough Rheumatoid Factor Complement C4 Miscellaneous Test Crossmatch 12/19/16 12/19/16 12/19/16 05:02 05:24 09:30 WBC 20.1 H RBC 2.73 L Hgb 7.6 L Hct 23.6 L MCV MCH MCHC RDW 17.6 H Plt Count Lymph % (Auto) [place] % (Auto) Lymph # [place] # Baso # Seg Neutrophils % Seg Neuts % (Manual) Lymphocytes % (Manual) 13.0 L Monocytes % (Manual) Eosinophils % (Manual) Basophils % (Manual) Nucleated RBC % 1.0 H Seg Neutrophils # Seg Neutrophils # Man 12.9 H Lymphocytes # (Manual) Monocytes # (Manual) 1.4 H Eosinophils # (Manual) Basophils # (Manual) 0.2 H PT INR Fibrinogen dRVVT Confirm Interp Factor V Activity POC ABG pH POC ABG pCO2 POC ABG pO2 ABG pO2 ABG HCO3 ABG Base Excess ABG Hemoglobin Oxyhemoglobin Sodium Potassium Chloride 97.8 L Carbon Dioxide BUN 84 H Creatinine 1.6 H Glucose 133 H POC Glucose 134 H Lactic Acid Calcium Phosphorus Magnesium Direct Bilirubin AST ALT Alkaline Phosphatase Lactate Dehydrogenase Troponin T C-Reactive Protein Total Protein Albumin Prealbumin Triglycerides Cholesterol LDL Cholesterol Direct HDL Cholesterol PTH Intact Urine pH Urine WBC (Auto) Urine Creatinine Urine Total Protein Fluid Total Protein Vancomycin Trough Rheumatoid Factor Complement C4 Miscellaneous Test Crossmatch 12/19/16 12/19/16 12/19/16 09:36 11:12 18:29 WBC RBC Hgb Hct MCV MCH MCHC RDW Plt Count Lymph % (Auto) [place] % (Auto) Lymph # [place] # Baso # Seg Neutrophils % Seg Neuts % (Manual) Lymphocytes % (Manual) Monocytes % (Manual) Eosinophils % (Manual) Basophils % (Manual) Nucleated RBC % Seg Neutrophils # Seg Neutrophils # Man Lymphocytes # (Manual) Monocytes # (Manual) Eosinophils # (Manual) Basophils # (Manual) PT INR Fibrinogen dRVVT Confirm Interp Factor V Activity POC ABG pH 7.503 H POC ABG pCO2 30.1 L POC ABG pO2 ABG pO2 ABG HCO3 ABG Base Excess ABG Hemoglobin Oxyhemoglobin Sodium Potassium Chloride Carbon Dioxide BUN Creatinine Glucose POC Glucose 138 H 156 H Lactic Acid Calcium Phosphorus Magnesium Direct Bilirubin AST ALT Alkaline Phosphatase Lactate Dehydrogenase Troponin T C-Reactive Protein Total Protein Albumin Prealbumin Triglycerides Cholesterol LDL Cholesterol Direct HDL Cholesterol PTH Intact Urine pH Urine WBC (Auto) Urine Creatinine Urine Total Protein Fluid Total Protein Vancomycin Trough Rheumatoid Factor Complement C4 Miscellaneous Test Crossmatch 12/20/16 12/20/16 12/20/16 00:03 06:17 07:07 WBC RBC Hgb Hct MCV MCH MCHC RDW Plt Count Lymph % (Auto) [place] % (Auto) Lymph # [place] # Baso # Seg Neutrophils % Seg Neuts % (Manual) Lymphocytes % (Manual) Monocytes % (Manual) Eosinophils % (Manual) Basophils % (Manual) Nucleated RBC % Seg Neutrophils # Seg Neutrophils # Man Lymphocytes # (Manual) Monocytes # (Manual) Eosinophils # (Manual) Basophils # (Manual) PT INR Fibrinogen dRVVT Confirm Interp Factor V Activity POC ABG pH POC ABG pCO2 POC ABG pO2 ABG pO2 ABG HCO3 ABG Base Excess ABG Hemoglobin Oxyhemoglobin Sodium Potassium Chloride 97.1 L Carbon Dioxide 20 L BUN 97 H Creatinine 1.8 H Glucose 153 H POC Glucose 152 H 175 H Lactic Acid Calcium Phosphorus Magnesium Direct Bilirubin AST ALT Alkaline Phosphatase Lactate Dehydrogenase Troponin T C-Reactive Protein Total Protein Albumin Prealbumin Triglycerides Cholesterol LDL Cholesterol Direct HDL Cholesterol PTH Intact Urine pH Urine WBC (Auto) Urine Creatinine Urine Total Protein Fluid Total Protein Vancomycin Trough Rheumatoid Factor Complement C4 Miscellaneous Test Crossmatch 12/20/16 12/20/16 12/20/16 12:00 17:42 23:53 WBC RBC Hgb Hct MCV MCH MCHC RDW Plt Count Lymph % (Auto) [place] % (Auto) Lymph # [place] # Baso # Seg Neutrophils % Seg Neuts % (Manual) Lymphocytes % (Manual) Monocytes % (Manual) Eosinophils % (Manual) Basophils % (Manual) Nucleated RBC % Seg Neutrophils # Seg Neutrophils # Man Lymphocytes # (Manual) Monocytes # (Manual) Eosinophils # (Manual) Basophils # (Manual) PT INR Fibrinogen dRVVT Confirm Interp Factor V Activity POC ABG pH POC ABG pCO2 POC ABG pO2 ABG pO2 ABG HCO3 ABG Base Excess ABG Hemoglobin Oxyhemoglobin Sodium Potassium Chloride Carbon Dioxide BUN Creatinine Glucose POC Glucose 141 H 156 H 132 H Lactic Acid Calcium Phosphorus Magnesium Direct Bilirubin AST ALT Alkaline Phosphatase Lactate Dehydrogenase Troponin T C-Reactive Protein Total Protein Albumin Prealbumin Triglycerides Cholesterol LDL Cholesterol Direct HDL Cholesterol PTH Intact Urine pH Urine WBC (Auto) Urine Creatinine Urine Total Protein Fluid Total Protein Vancomycin Trough Rheumatoid Factor Complement C4 Miscellaneous Test Crossmatch 12/21/16 12/21/16 12/21/16 05:49 08:50 12:19 WBC RBC Hgb Hct MCV MCH MCHC RDW Plt Count Lymph % (Auto) [place] % (Auto) Lymph # [place] # Baso # Seg Neutrophils % Seg Neuts % (Manual) Lymphocytes % (Manual) Monocytes % (Manual) Eosinophils % (Manual) Basophils % (Manual) Nucleated RBC % Seg Neutrophils # Seg Neutrophils # Man Lymphocytes # (Manual) Monocytes # (Manual) Eosinophils # (Manual) Basophils # (Manual) PT INR Fibrinogen dRVVT Confirm Interp Factor V Activity POC ABG pH POC ABG pCO2 POC ABG pO2 ABG pO2 ABG HCO3 ABG Base Excess ABG Hemoglobin Oxyhemoglobin Sodium Potassium 5.2 H D Chloride Carbon Dioxide BUN 63 H Creatinine Glucose 122 H POC Glucose 132 H 136 H Lactic Acid Calcium 8.3 L Phosphorus Magnesium Direct Bilirubin AST ALT Alkaline Phosphatase Lactate Dehydrogenase Troponin T C-Reactive Protein Total Protein Albumin Prealbumin Triglycerides Cholesterol LDL Cholesterol Direct HDL Cholesterol PTH Intact Urine pH Urine WBC (Auto) Urine Creatinine Urine Total Protein Fluid Total Protein Vancomycin Trough Rheumatoid Factor Complement C4 Miscellaneous Test Crossmatch 12/21/16 12/21/16 12/22/16 17:22 23:58 05:49 WBC RBC Hgb Hct MCV MCH MCHC RDW Plt Count Lymph % (Auto) [place] % (Auto) Lymph # [place] # Baso # Seg Neutrophils % Seg Neuts % (Manual) Lymphocytes % (Manual) Monocytes % (Manual) Eosinophils % (Manual) Basophils % (Manual) Nucleated RBC % Seg Neutrophils # Seg Neutrophils # Man Lymphocytes # (Manual) Monocytes # (Manual) Eosinophils # (Manual) Basophils # (Manual) PT INR Fibrinogen dRVVT Confirm Interp Factor V Activity POC ABG pH POC ABG pCO2 POC ABG pO2 ABG pO2 ABG HCO3 ABG Base Excess ABG Hemoglobin Oxyhemoglobin Sodium Potassium Chloride Carbon Dioxide BUN Creatinine Glucose POC Glucose 135 H 149 H 140 H Lactic Acid Calcium Phosphorus Magnesium Direct Bilirubin AST ALT Alkaline Phosphatase Lactate Dehydrogenase Troponin T C-Reactive Protein Total Protein Albumin Prealbumin Triglycerides Cholesterol LDL Cholesterol Direct HDL Cholesterol PTH Intact Urine pH Urine WBC (Auto) Urine Creatinine Urine Total Protein Fluid Total Protein Vancomycin Trough Rheumatoid Factor Complement C4 Miscellaneous Test Crossmatch 12/22/16 12/22/16 12/22/16 06:10 11:17 17:31 WBC RBC Hgb Hct MCV MCH MCHC RDW Plt Count Lymph % (Auto) [place] % (Auto) Lymph # [place] # Baso # Seg Neutrophils % Seg Neuts % (Manual) Lymphocytes % (Manual) Monocytes % (Manual) Eosinophils % (Manual) Basophils % (Manual) Nucleated RBC % Seg Neutrophils # Seg Neutrophils # Man Lymphocytes # (Manual) Monocytes # (Manual) Eosinophils # (Manual) Basophils # (Manual) PT INR Fibrinogen dRVVT Confirm Interp Factor V Activity POC ABG pH POC ABG pCO2 POC ABG pO2 ABG pO2 ABG HCO3 ABG Base Excess ABG Hemoglobin Oxyhemoglobin Sodium Potassium Chloride Carbon Dioxide BUN 76 H Creatinine 1.5 H Glucose 241 H POC Glucose 193 H 148 H Lactic Acid Calcium Phosphorus Magnesium Direct Bilirubin AST ALT Alkaline Phosphatase Lactate Dehydrogenase Troponin T C-Reactive Protein Total Protein Albumin Prealbumin Triglycerides Cholesterol LDL Cholesterol Direct HDL Cholesterol PTH Intact Urine pH Urine WBC (Auto) Urine Creatinine Urine Total Protein Fluid Total Protein Vancomycin Trough Rheumatoid Factor Complement C4 Miscellaneous Test Crossmatch 12/22/16 12/23/16 12/23/16 23:58 05:00 05:26 WBC RBC Hgb Hct MCV MCH MCHC RDW Plt Count Lymph % (Auto) [place] % (Auto) Lymph # [place] # Baso # Seg Neutrophils % Seg Neuts % (Manual) Lymphocytes % (Manual) Monocytes % (Manual) Eosinophils % (Manual) Basophils % (Manual) Nucleated RBC % Seg Neutrophils # Seg Neutrophils # Man Lymphocytes # (Manual) Monocytes # (Manual) Eosinophils # (Manual) Basophils # (Manual) PT INR Fibrinogen dRVVT Confirm Interp Factor V Activity POC ABG pH POC ABG pCO2 POC ABG pO2 ABG pO2 ABG HCO3 ABG Base Excess ABG Hemoglobin Oxyhemoglobin Sodium Potassium Chloride Carbon Dioxide BUN 49 H Creatinine Glucose 143 H POC Glucose 165 H 154 H Lactic Acid Calcium 8.2 L Phosphorus Magnesium 1.60 L Direct Bilirubin AST ALT Alkaline Phosphatase Lactate Dehydrogenase Troponin T C-Reactive Protein Total Protein Albumin Prealbumin Triglycerides Cholesterol LDL Cholesterol Direct HDL Cholesterol PTH Intact Urine pH Urine WBC (Auto) Urine Creatinine Urine Total Protein Fluid Total Protein Vancomycin Trough Rheumatoid Factor Complement C4 Miscellaneous Test Crossmatch 12/23/16 12/23/16 12/24/16 12:35 17:01 00:01 WBC RBC Hgb Hct MCV MCH MCHC RDW Plt Count Lymph % (Auto) [place] % (Auto) Lymph # [place] # Baso # Seg Neutrophils % Seg Neuts % (Manual) Lymphocytes % (Manual) Monocytes % (Manual) Eosinophils % (Manual) Basophils % (Manual) Nucleated RBC % Seg Neutrophils # Seg Neutrophils # Man Lymphocytes # (Manual) Monocytes # (Manual) Eosinophils # (Manual) Basophils # (Manual) PT INR Fibrinogen dRVVT Confirm Interp Factor V Activity POC ABG pH POC ABG pCO2 POC ABG pO2 ABG pO2 ABG HCO3 ABG Base Excess ABG Hemoglobin Oxyhemoglobin Sodium Potassium Chloride Carbon Dioxide BUN Creatinine Glucose POC Glucose 164 H 149 H 135 H Lactic Acid Calcium Phosphorus Magnesium Direct Bilirubin AST ALT Alkaline Phosphatase Lactate Dehydrogenase Troponin T C-Reactive Protein Total Protein Albumin Prealbumin Triglycerides Cholesterol LDL Cholesterol Direct HDL Cholesterol PTH Intact Urine pH Urine WBC (Auto) Urine Creatinine Urine Total Protein Fluid Total Protein Vancomycin Trough Rheumatoid Factor Complement C4 Miscellaneous Test Crossmatch 12/24/16 12/24/16 12/24/16 05:41 07:01 11:38 WBC RBC Hgb Hct MCV MCH MCHC RDW Plt Count Lymph % (Auto) [place] % (Auto) Lymph # [place] # Baso # Seg Neutrophils % Seg Neuts % (Manual) Lymphocytes % (Manual) Monocytes % (Manual) Eosinophils % (Manual) Basophils % (Manual) Nucleated RBC % Seg Neutrophils # Seg Neutrophils # Man Lymphocytes # (Manual) Monocytes # (Manual) Eosinophils # (Manual) Basophils # (Manual) PT INR Fibrinogen dRVVT Confirm Interp Factor V Activity POC ABG pH POC ABG pCO2 POC ABG pO2 ABG pO2 ABG HCO3 ABG Base Excess ABG Hemoglobin Oxyhemoglobin Sodium Potassium Chloride Carbon Dioxide BUN 72 H Creatinine 1.3 H Glucose 130 H POC Glucose 132 H 156 H Lactic Acid Calcium 8.2 L Phosphorus Magnesium Direct Bilirubin AST ALT Alkaline Phosphatase Lactate Dehydrogenase Troponin T C-Reactive Protein Total Protein Albumin Prealbumin Triglycerides Cholesterol LDL Cholesterol Direct HDL Cholesterol PTH Intact Urine pH Urine WBC (Auto) Urine Creatinine Urine Total Protein Fluid Total Protein Vancomycin Trough Rheumatoid Factor Complement C4 Miscellaneous Test Crossmatch 12/24/16 12/25/16 12/25/16 17:53 00:23 05:45 WBC RBC Hgb Hct MCV MCH MCHC RDW Plt Count Lymph % (Auto) [place] % (Auto) Lymph # [place] # Baso # Seg Neutrophils % Seg Neuts % (Manual) Lymphocytes % (Manual) Monocytes % (Manual) Eosinophils % (Manual) Basophils % (Manual) Nucleated RBC % Seg Neutrophils # Seg Neutrophils # Man Lymphocytes # (Manual) Monocytes # (Manual) Eosinophils # (Manual) Basophils # (Manual) PT INR Fibrinogen dRVVT Confirm Interp Factor V Activity POC ABG pH POC ABG pCO2 POC ABG pO2 ABG pO2 ABG HCO3 ABG Base Excess ABG Hemoglobin Oxyhemoglobin Sodium 146 H Potassium Chloride Carbon Dioxide BUN 51 H Creatinine Glucose 109 H POC Glucose 169 H 117 H Lactic Acid Calcium Phosphorus Magnesium Direct Bilirubin AST ALT Alkaline Phosphatase Lactate Dehydrogenase Troponin T C-Reactive Protein Total Protein Albumin Prealbumin Triglycerides Cholesterol LDL Cholesterol Direct HDL Cholesterol PTH Intact Urine pH Urine WBC (Auto) Urine Creatinine Urine Total Protein Fluid Total Protein Vancomycin Trough Rheumatoid Factor Complement C4 Miscellaneous Test Crossmatch 12/25/16 12/25/16 12/25/16 06:43 11:29 17:14 WBC RBC Hgb Hct MCV MCH MCHC RDW Plt Count Lymph % (Auto) [place] % (Auto) Lymph # [place] # Baso # Seg Neutrophils % Seg Neuts % (Manual) Lymphocytes % (Manual) Monocytes % (Manual) Eosinophils % (Manual) Basophils % (Manual) Nucleated RBC % Seg Neutrophils # Seg Neutrophils # Man Lymphocytes # (Manual) Monocytes # (Manual) Eosinophils # (Manual) Basophils # (Manual) PT INR Fibrinogen dRVVT Confirm Interp Factor V Activity POC ABG pH POC ABG pCO2 POC ABG pO2 ABG pO2 ABG HCO3 ABG Base Excess ABG Hemoglobin Oxyhemoglobin Sodium Potassium Chloride Carbon Dioxide BUN Creatinine Glucose POC Glucose 117 H 128 H 120 H Lactic Acid Calcium Phosphorus Magnesium Direct Bilirubin AST ALT Alkaline Phosphatase Lactate Dehydrogenase Troponin T C-Reactive Protein Total Protein Albumin Prealbumin Triglycerides Cholesterol LDL Cholesterol Direct HDL Cholesterol PTH Intact Urine pH Urine WBC (Auto) Urine Creatinine Urine Total Protein Fluid Total Protein Vancomycin Trough Rheumatoid Factor Complement C4 Miscellaneous Test Crossmatch 12/25/16 12/26/16 12/26/16 23:54 05:40 05:50 WBC 16.2 H RBC 2.32 L Hgb 6.2 L Hct 20.1 L MCV MCH 27 L MCHC RDW 18.6 H Plt Count Lymph % (Auto) [place] % (Auto) Lymph # [place] # Baso # Seg Neutrophils % Seg Neuts % (Manual) Lymphocytes % (Manual) Monocytes % (Manual) Eosinophils % (Manual) Basophils % (Manual) Nucleated RBC % Seg Neutrophils # Seg Neutrophils # Man Lymphocytes # (Manual) Monocytes # (Manual) Eosinophils # (Manual) Basophils # (Manual) PT INR Fibrinogen dRVVT Confirm Interp Factor V Activity POC ABG pH POC ABG pCO2 POC ABG pO2 ABG pO2 ABG HCO3 ABG Base Excess ABG Hemoglobin Oxyhemoglobin Sodium Potassium Chloride Carbon Dioxide BUN Creatinine Glucose POC Glucose 126 H 132 H Lactic Acid Calcium Phosphorus Magnesium Direct Bilirubin AST ALT Alkaline Phosphatase Lactate Dehydrogenase Troponin T C-Reactive Protein Total Protein Albumin Prealbumin Triglycerides Cholesterol LDL Cholesterol Direct HDL Cholesterol PTH Intact Urine pH Urine WBC (Auto) Urine Creatinine Urine Total Protein Fluid Total Protein Vancomycin Trough Rheumatoid Factor Complement C4 Miscellaneous Test Crossmatch 12/26/16 12/26/16 12/26/16 05:50 12:17 12:33 WBC RBC Hgb Hct MCV MCH MCHC RDW Plt Count Lymph % (Auto) [place] % (Auto) Lymph # [place] # Baso # Seg Neutrophils % Seg Neuts % (Manual) Lymphocytes % (Manual) Monocytes % (Manual) Eosinophils % (Manual) Basophils % (Manual) Nucleated RBC % Seg Neutrophils # Seg Neutrophils # Man Lymphocytes # (Manual) Monocytes # (Manual) Eosinophils # (Manual) Basophils # (Manual) PT INR Fibrinogen dRVVT Confirm Interp Factor V Activity POC ABG pH POC ABG pCO2 POC ABG pO2 ABG pO2 ABG HCO3 ABG Base Excess ABG Hemoglobin Oxyhemoglobin Sodium Potassium Chloride Carbon Dioxide BUN 73 H Creatinine 1.3 H Glucose 113 H POC Glucose 117 H Lactic Acid Calcium Phosphorus Magnesium Direct Bilirubin AST ALT Alkaline Phosphatase Lactate Dehydrogenase Troponin T C-Reactive Protein Total Protein Albumin Prealbumin Triglycerides Cholesterol LDL Cholesterol Direct HDL Cholesterol PTH Intact Urine pH Urine WBC (Auto) Urine Creatinine Urine Total Protein Fluid Total Protein Vancomycin Trough Rheumatoid Factor Complement C4 Miscellaneous Test Crossmatch See Detail 12/26/16 12/26/16 12/27/16 20:00 23:21 05:00 WBC RBC Hgb 8.4 L Hct 26.3 L D MCV MCH MCHC RDW Plt Count Lymph % (Auto) [place] % (Auto) Lymph # [place] # Baso # Seg Neutrophils % Seg Neuts % (Manual) Lymphocytes % (Manual) Monocytes % (Manual) Eosinophils % (Manual) Basophils % (Manual) Nucleated RBC % Seg Neutrophils # Seg Neutrophils # Man Lymphocytes # (Manual) Monocytes # (Manual) Eosinophils # (Manual) Basophils # (Manual) PT INR Fibrinogen dRVVT Confirm Interp Factor V Activity POC ABG pH POC ABG pCO2 POC ABG pO2 ABG pO2 ABG HCO3 ABG Base Excess ABG Hemoglobin Oxyhemoglobin Sodium Potassium Chloride Carbon Dioxide BUN 85 H Creatinine 1.6 H Glucose 118 H POC Glucose 124 H Lactic Acid Calcium Phosphorus 4.80 H Magnesium Direct Bilirubin AST ALT Alkaline Phosphatase Lactate Dehydrogenase Troponin T C-Reactive Protein Total Protein Albumin Prealbumin Triglycerides Cholesterol LDL Cholesterol Direct HDL Cholesterol PTH Intact Urine pH Urine WBC (Auto) Urine Creatinine Urine Total Protein Fluid Total Protein Vancomycin Trough Rheumatoid Factor Complement C4 Miscellaneous Test Crossmatch 12/27/16 12/27/16 12/27/16 05:00 05:35 12:24 WBC RBC Hgb 7.6 L Hct 22.8 L MCV MCH MCHC RDW Plt Count Lymph % (Auto) [place] % (Auto) Lymph # [place] # Baso # Seg Neutrophils % Seg Neuts % (Manual) Lymphocytes % (Manual) Monocytes % (Manual) Eosinophils % (Manual) Basophils % (Manual) Nucleated RBC % Seg Neutrophils # Seg Neutrophils # Man Lymphocytes # (Manual) Monocytes # (Manual) Eosinophils # (Manual) Basophils # (Manual) PT INR Fibrinogen dRVVT Confirm Interp Factor V Activity POC ABG pH POC ABG pCO2 POC ABG pO2 ABG pO2 ABG HCO3 ABG Base Excess ABG Hemoglobin Oxyhemoglobin Sodium Potassium Chloride Carbon Dioxide BUN Creatinine Glucose POC Glucose 115 H 131 H Lactic Acid Calcium Phosphorus Magnesium Direct Bilirubin AST ALT Alkaline Phosphatase Lactate Dehydrogenase Troponin T C-Reactive Protein Total Protein Albumin Prealbumin Triglycerides Cholesterol LDL Cholesterol Direct HDL Cholesterol PTH Intact Urine pH Urine WBC (Auto) Urine Creatinine Urine Total Protein Fluid Total Protein Vancomycin Trough Rheumatoid Factor Complement C4 Miscellaneous Test Crossmatch 12/27/16 12/28/16 12/28/16 17:16 00:18 04:00 WBC RBC Hgb Hct MCV MCH MCHC RDW Plt Count Lymph % (Auto) [place] % (Auto) Lymph # [place] # Baso # Seg Neutrophils % Seg Neuts % (Manual) Lymphocytes % (Manual) Monocytes % (Manual) Eosinophils % (Manual) Basophils % (Manual) Nucleated RBC % Seg Neutrophils # Seg Neutrophils # Man Lymphocytes # (Manual) Monocytes # (Manual) Eosinophils # (Manual) Basophils # (Manual) PT INR Fibrinogen dRVVT Confirm Interp Factor V Activity POC ABG pH POC ABG pCO2 POC ABG pO2 ABG pO2 ABG HCO3 ABG Base Excess ABG Hemoglobin Oxyhemoglobin Sodium Potassium 3.5 L Chloride Carbon Dioxide BUN 57 H Creatinine Glucose 118 H POC Glucose 136 H 120 H Lactic Acid Calcium 8.3 L Phosphorus Magnesium Direct Bilirubin AST ALT Alkaline Phosphatase Lactate Dehydrogenase Troponin T C-Reactive Protein Total Protein Albumin Prealbumin Triglycerides Cholesterol LDL Cholesterol Direct HDL Cholesterol PTH Intact Urine pH Urine WBC (Auto) Urine Creatinine Urine Total Protein Fluid Total Protein Vancomycin Trough Rheumatoid Factor Complement C4 Miscellaneous Test Crossmatch 12/28/16 12/28/16 12/28/16 04:00 05:11 08:30 WBC 17.0 H RBC 2.58 L Hgb 7.1 L Hct 22.0 L MCV MCH MCHC RDW 17.6 H Plt Count Lymph % (Auto) 12.2 L [place] % (Auto) Lymph # [place] # 1.1 H Baso # Seg Neutrophils % 80.5 H Seg Neuts % (Manual) Lymphocytes % (Manual) Monocytes % (Manual) Eosinophils % (Manual) Basophils % (Manual) Nucleated RBC % Seg Neutrophils # 13.7 H Seg Neutrophils # Man Lymphocytes # (Manual) Monocytes # (Manual) Eosinophils # (Manual) Basophils # (Manual) PT 16.1 H INR 1.23 H Fibrinogen dRVVT Confirm Interp Factor V Activity POC ABG pH POC ABG pCO2 POC ABG pO2 ABG pO2 ABG HCO3 ABG Base Excess ABG Hemoglobin Oxyhemoglobin Sodium Potassium Chloride Carbon Dioxide BUN Creatinine Glucose POC Glucose 122 H Lactic Acid Calcium Phosphorus Magnesium Direct Bilirubin AST ALT Alkaline Phosphatase Lactate Dehydrogenase Troponin T C-Reactive Protein Total Protein Albumin Prealbumin Triglycerides Cholesterol LDL Cholesterol Direct HDL Cholesterol PTH Intact Urine pH Urine WBC (Auto) Urine Creatinine Urine Total Protein Fluid Total Protein Vancomycin Trough Rheumatoid Factor Complement C4 Miscellaneous Test Crossmatch 12/28/16 12/28/16 12/28/16 12:27 16:32 23:46 WBC RBC Hgb Hct MCV MCH MCHC RDW Plt Count Lymph % (Auto) [place] % (Auto) Lymph # [place] # Baso # Seg Neutrophils % Seg Neuts % (Manual) Lymphocytes % (Manual) Monocytes % (Manual) Eosinophils % (Manual) Basophils % (Manual) Nucleated RBC % Seg Neutrophils # Seg Neutrophils # Man Lymphocytes # (Manual) Monocytes # (Manual) Eosinophils # (Manual) Basophils # (Manual) PT INR Fibrinogen dRVVT Confirm Interp Factor V Activity POC ABG pH POC ABG pCO2 POC ABG pO2 ABG pO2 ABG HCO3 ABG Base Excess ABG Hemoglobin Oxyhemoglobin Sodium Potassium Chloride Carbon Dioxide BUN Creatinine Glucose POC Glucose 127 H 117 H 108 H Lactic Acid Calcium Phosphorus Magnesium Direct Bilirubin AST ALT Alkaline Phosphatase Lactate Dehydrogenase Troponin T C-Reactive Protein Total Protein Albumin Prealbumin Triglycerides Cholesterol LDL Cholesterol Direct HDL Cholesterol PTH Intact Urine pH Urine WBC (Auto) Urine Creatinine Urine Total Protein Fluid Total Protein Vancomycin Trough Rheumatoid Factor Complement C4 Miscellaneous Test Crossmatch 12/29/16 12/29/16 12/29/16 05:15 05:15 05:32 WBC RBC Hgb Hct MCV MCH MCHC RDW Plt Count Lymph % (Auto) [place] % (Auto) Lymph # [place] # Baso # Seg Neutrophils % Seg Neuts % (Manual) Lymphocytes % (Manual) Monocytes % (Manual) Eosinophils % (Manual) Basophils % (Manual) Nucleated RBC % Seg Neutrophils # Seg Neutrophils # Man Lymphocytes # (Manual) Monocytes # (Manual) Eosinophils # (Manual) Basophils # (Manual) PT INR Fibrinogen dRVVT Confirm Interp Factor V Activity POC ABG pH POC ABG pCO2 POC ABG pO2 ABG pO2 ABG HCO3 ABG Base Excess ABG Hemoglobin Oxyhemoglobin Sodium Potassium Chloride Carbon Dioxide BUN 74 H Creatinine 1.6 H Glucose 111 H POC Glucose 123 H Lactic Acid Calcium Phosphorus Magnesium Direct Bilirubin AST ALT Alkaline Phosphatase Lactate Dehydrogenase Troponin T C-Reactive Protein Total Protein Albumin Prealbumin 0.110 L Triglycerides Cholesterol LDL Cholesterol Direct HDL Cholesterol PTH Intact Urine pH Urine WBC (Auto) Urine Creatinine Urine Total Protein Fluid Total Protein Vancomycin Trough Rheumatoid Factor Complement C4 Miscellaneous Test Crossmatch 12/29/16 12/29/16 12/29/16 11:43 13:45 14:00 WBC 13.8 H RBC 2.26 L Hgb 6.3 L Hct 20.4 L MCV MCH MCHC RDW 18.3 H Plt Count Lymph % (Auto) [place] % (Auto) Lymph # [place] # 0.9 H Baso # Seg Neutrophils % 78.6 H Seg Neuts % (Manual) Lymphocytes % (Manual) Monocytes % (Manual) Eosinophils % (Manual) Basophils % (Manual) Nucleated RBC % Seg Neutrophils # 10.8 H Seg Neutrophils # Man Lymphocytes # (Manual) Monocytes # (Manual) Eosinophils # (Manual) Basophils # (Manual) PT INR Fibrinogen dRVVT Confirm Interp Factor V Activity POC ABG pH POC ABG pCO2 POC ABG pO2 ABG pO2 ABG HCO3 ABG Base Excess ABG Hemoglobin Oxyhemoglobin Sodium Potassium Chloride Carbon Dioxide BUN Creatinine Glucose POC Glucose 133 H Lactic Acid Calcium Phosphorus Magnesium Direct Bilirubin AST ALT Alkaline Phosphatase Lactate Dehydrogenase Troponin T C-Reactive Protein Total Protein Albumin Prealbumin Triglycerides Cholesterol LDL Cholesterol Direct HDL Cholesterol PTH Intact Urine pH Urine WBC (Auto) Urine Creatinine Urine Total Protein Fluid Total Protein Vancomycin Trough Rheumatoid Factor Complement C4 Miscellaneous Test Crossmatch See Detail 12/29/16 12/29/16 12/29/16 17:03 23:15 23:22 WBC RBC Hgb 7.3 L Hct 22.3 L MCV MCH MCHC RDW Plt Count Lymph % (Auto) [place] % (Auto) Lymph # [place] # Baso # Seg Neutrophils % Seg Neuts % (Manual) Lymphocytes % (Manual) Monocytes % (Manual) Eosinophils % (Manual) Basophils % (Manual) Nucleated RBC % Seg Neutrophils # Seg Neutrophils # Man Lymphocytes # (Manual) Monocytes # (Manual) Eosinophils # (Manual) Basophils # (Manual) PT INR Fibrinogen dRVVT Confirm Interp Factor V Activity POC ABG pH POC ABG pCO2 POC ABG pO2 ABG pO2 ABG HCO3 ABG Base Excess ABG Hemoglobin Oxyhemoglobin Sodium Potassium Chloride Carbon Dioxide BUN Creatinine Glucose POC Glucose 139 H 120 H Lactic Acid Calcium Phosphorus Magnesium Direct Bilirubin AST ALT Alkaline Phosphatase Lactate Dehydrogenase Troponin T C-Reactive Protein Total Protein Albumin Prealbumin Triglycerides Cholesterol LDL Cholesterol Direct HDL Cholesterol PTH Intact Urine pH Urine WBC (Auto) Urine Creatinine Urine Total Protein Fluid Total Protein Vancomycin Trough Rheumatoid Factor Complement C4 Miscellaneous Test Crossmatch 12/30/16 12/30/16 12/30/16 04:20 04:20 05:43 WBC 15.6 H RBC 2.81 L Hgb 8.0 L Hct 24.0 L MCV MCH MCHC RDW 16.9 H Plt Count Lymph % (Auto) [place] % (Auto) Lymph # [place] # 1.0 H Baso # Seg Neutrophils % 76.2 H Seg Neuts % (Manual) Lymphocytes % (Manual) Monocytes % (Manual) Eosinophils % (Manual) Basophils % (Manual) Nucleated RBC % Seg Neutrophils # 11.9 H Seg Neutrophils # Man Lymphocytes # (Manual) Monocytes # (Manual) Eosinophils # (Manual) Basophils # (Manual) PT INR Fibrinogen dRVVT Confirm Interp Factor V Activity POC ABG pH POC ABG pCO2 POC ABG pO2 ABG pO2 ABG HCO3 ABG Base Excess ABG Hemoglobin Oxyhemoglobin Sodium Potassium Chloride Carbon Dioxide BUN 87 H Creatinine 1.8 H Glucose 119 H POC Glucose 115 H Lactic Acid Calcium Phosphorus Magnesium Direct Bilirubin AST ALT Alkaline Phosphatase Lactate Dehydrogenase Troponin T C-Reactive Protein Total Protein Albumin Prealbumin Triglycerides Cholesterol LDL Cholesterol Direct HDL Cholesterol PTH Intact Urine pH Urine WBC (Auto) Urine Creatinine Urine Total Protein Fluid Total Protein Vancomycin Trough Rheumatoid Factor Complement C4 Miscellaneous Test Crossmatch 12/30/16 12/30/16 12/31/16 17:27 23:21 04:00 WBC RBC Hgb Hct MCV MCH MCHC RDW Plt Count Lymph % (Auto) [place] % (Auto) Lymph # [place] # Baso # Seg Neutrophils % Seg Neuts % (Manual) Lymphocytes % (Manual) Monocytes % (Manual) Eosinophils % (Manual) Basophils % (Manual) Nucleated RBC % Seg Neutrophils # Seg Neutrophils # Man Lymphocytes # (Manual) Monocytes # (Manual) Eosinophils # (Manual) Basophils # (Manual) PT INR Fibrinogen dRVVT Confirm Interp Factor V Activity POC ABG pH POC ABG pCO2 POC ABG pO2 ABG pO2 ABG HCO3 ABG Base Excess ABG Hemoglobin Oxyhemoglobin Sodium Potassium Chloride Carbon Dioxide BUN 59 H Creatinine Glucose 298 H POC Glucose 144 H 125 H Lactic Acid Calcium Phosphorus Magnesium Direct Bilirubin AST ALT Alkaline Phosphatase Lactate Dehydrogenase Troponin T C-Reactive Protein Total Protein Albumin Prealbumin Triglycerides Cholesterol LDL Cholesterol Direct HDL Cholesterol PTH Intact Urine pH Urine WBC (Auto) Urine Creatinine Urine Total Protein Fluid Total Protein Vancomycin Trough Rheumatoid Factor Complement C4 Miscellaneous Test Crossmatch 12/31/16 12/31/16 12/31/16 05:11 12:18 18:17 WBC RBC Hgb Hct MCV MCH MCHC RDW Plt Count Lymph % (Auto) [place] % (Auto) Lymph # [place] # Baso # Seg Neutrophils % Seg Neuts % (Manual) Lymphocytes % (Manual) Monocytes % (Manual) Eosinophils % (Manual) Basophils % (Manual) Nucleated RBC % Seg Neutrophils # Seg Neutrophils # Man Lymphocytes # (Manual) Monocytes # (Manual) Eosinophils # (Manual) Basophils # (Manual) PT INR Fibrinogen dRVVT Confirm Interp Factor V Activity POC ABG pH POC ABG pCO2 POC ABG pO2 ABG pO2 ABG HCO3 ABG Base Excess ABG Hemoglobin Oxyhemoglobin Sodium Potassium Chloride Carbon Dioxide BUN Creatinine Glucose POC Glucose 167 H 125 H 133 H Lactic Acid Calcium Phosphorus Magnesium Direct Bilirubin AST ALT Alkaline Phosphatase Lactate Dehydrogenase Troponin T C-Reactive Protein Total Protein Albumin Prealbumin Triglycerides Cholesterol LDL Cholesterol Direct HDL Cholesterol PTH Intact Urine pH Urine WBC (Auto) Urine Creatinine Urine Total Protein Fluid Total Protein Vancomycin Trough Rheumatoid Factor Complement C4 Miscellaneous Test Crossmatch 12/31/16 01/01/17 01/01/17 23:55 05:00 05:12 WBC RBC Hgb Hct MCV MCH MCHC RDW Plt Count Lymph % (Auto) [place] % (Auto) Lymph # [place] # Baso # Seg Neutrophils % Seg Neuts % (Manual) Lymphocytes % (Manual) Monocytes % (Manual) Eosinophils % (Manual) Basophils % (Manual) Nucleated RBC % Seg Neutrophils # Seg Neutrophils # Man Lymphocytes # (Manual) Monocytes # (Manual) Eosinophils # (Manual) Basophils # (Manual) PT INR Fibrinogen dRVVT Confirm Interp Factor V Activity POC ABG pH POC ABG pCO2 POC ABG pO2 ABG pO2 ABG HCO3 ABG Base Excess ABG Hemoglobin Oxyhemoglobin Sodium Potassium Chloride Carbon Dioxide BUN 76 H Creatinine 1.5 H Glucose 109 H POC Glucose 129 H 129 H Lactic Acid Calcium Phosphorus Magnesium Direct Bilirubin AST ALT Alkaline Phosphatase 536 H Lactate Dehydrogenase Troponin T C-Reactive Protein Total Protein Albumin 1.5 L Prealbumin Triglycerides Cholesterol LDL Cholesterol Direct HDL Cholesterol PTH Intact Urine pH Urine WBC (Auto) Urine Creatinine Urine Total Protein Fluid Total Protein Vancomycin Trough Rheumatoid Factor Complement C4 Miscellaneous Test Crossmatch 01/01/17 01/01/17 01/01/17 12:25 17:01 23:32 WBC RBC Hgb Hct MCV MCH MCHC RDW Plt Count Lymph % (Auto) [place] % (Auto) Lymph # [place] # Baso # Seg Neutrophils % Seg Neuts % (Manual) Lymphocytes % (Manual) Monocytes % (Manual) Eosinophils % (Manual) Basophils % (Manual) Nucleated RBC % Seg Neutrophils # Seg Neutrophils # Man Lymphocytes # (Manual) Monocytes # (Manual) Eosinophils # (Manual) Basophils # (Manual) PT INR Fibrinogen dRVVT Confirm Interp Factor V Activity POC ABG pH POC ABG pCO2 POC ABG pO2 ABG pO2 ABG HCO3 ABG Base Excess ABG Hemoglobin Oxyhemoglobin Sodium Potassium Chloride Carbon Dioxide BUN Creatinine Glucose POC Glucose 140 H 142 H 112 H Lactic Acid Calcium Phosphorus Magnesium Direct Bilirubin AST ALT Alkaline Phosphatase Lactate Dehydrogenase Troponin T C-Reactive Protein Total Protein Albumin Prealbumin Triglycerides Cholesterol LDL Cholesterol Direct HDL Cholesterol PTH Intact Urine pH Urine WBC (Auto) Urine Creatinine Urine Total Protein Fluid Total Protein Vancomycin Trough Rheumatoid Factor Complement C4 Miscellaneous Test Crossmatch 01/02/17 01/02/17 01/02/17 04:56 06:00 11:37 WBC RBC Hgb Hct MCV MCH MCHC RDW Plt Count Lymph % (Auto) [place] % (Auto) Lymph # [place] # Baso # Seg Neutrophils % Seg Neuts % (Manual) Lymphocytes % (Manual) Monocytes % (Manual) Eosinophils % (Manual) Basophils % (Manual) Nucleated RBC % Seg Neutrophils # Seg Neutrophils # Man Lymphocytes # (Manual) Monocytes # (Manual) Eosinophils # (Manual) Basophils # (Manual) PT INR Fibrinogen dRVVT Confirm Interp Factor V Activity POC ABG pH POC ABG pCO2 POC ABG pO2 ABG pO2 ABG HCO3 ABG Base Excess ABG Hemoglobin Oxyhemoglobin Sodium Potassium Chloride Carbon Dioxide BUN 88 H Creatinine 1.7 H Glucose 113 H POC Glucose 136 H 200 H Lactic Acid Calcium Phosphorus Magnesium Direct Bilirubin AST ALT Alkaline Phosphatase Lactate Dehydrogenase Troponin T C-Reactive Protein Total Protein Albumin Prealbumin Triglycerides Cholesterol LDL Cholesterol Direct HDL Cholesterol PTH Intact Urine pH Urine WBC (Auto) Urine Creatinine Urine Total Protein Fluid Total Protein Vancomycin Trough Rheumatoid Factor Complement C4 Miscellaneous Test Crossmatch 01/02/17 01/02/17 01/03/17 17:42 22:52 04:54 WBC RBC Hgb Hct MCV MCH MCHC RDW Plt Count Lymph % (Auto) [place] % (Auto) Lymph # [place] # Baso # Seg Neutrophils % Seg Neuts % (Manual) Lymphocytes % (Manual) Monocytes % (Manual) Eosinophils % (Manual) Basophils % (Manual) Nucleated RBC % Seg Neutrophils # Seg Neutrophils # Man Lymphocytes # (Manual) Monocytes # (Manual) Eosinophils # (Manual) Basophils # (Manual) PT INR Fibrinogen dRVVT Confirm Interp Factor V Activity POC ABG pH POC ABG pCO2 POC ABG pO2 ABG pO2 ABG HCO3 ABG Base Excess ABG Hemoglobin Oxyhemoglobin Sodium Potassium Chloride Carbon Dioxide BUN Creatinine Glucose POC Glucose 112 H 133 H 111 H Lactic Acid Calcium Phosphorus Magnesium Direct Bilirubin AST ALT Alkaline Phosphatase Lactate Dehydrogenase Troponin T C-Reactive Protein Total Protein Albumin Prealbumin Triglycerides Cholesterol LDL Cholesterol Direct HDL Cholesterol PTH Intact Urine pH Urine WBC (Auto) Urine Creatinine Urine Total Protein Fluid Total Protein Vancomycin Trough Rheumatoid Factor Complement C4 Miscellaneous Test Crossmatch 01/03/17 01/03/17 01/03/17 05:00 05:00 14:02 WBC 11.2 H RBC 2.56 L Hgb 7.2 L Hct 22.3 L MCV MCH MCHC RDW 17.3 H Plt Count Lymph % (Auto) [place] % (Auto) 10.0 H Lymph # [place] # 1.1 H Baso # Seg Neutrophils % 70.5 H Seg Neuts % (Manual) Lymphocytes % (Manual) Monocytes % (Manual) Eosinophils % (Manual) Basophils % (Manual) Nucleated RBC % Seg Neutrophils # 7.9 H Seg Neutrophils # Man Lymphocytes # (Manual) Monocytes # (Manual) Eosinophils # (Manual) Basophils # (Manual) PT INR Fibrinogen dRVVT Confirm Interp Factor V Activity POC ABG pH POC ABG pCO2 POC ABG pO2 ABG pO2 ABG HCO3 ABG Base Excess ABG Hemoglobin Oxyhemoglobin Sodium Potassium Chloride Carbon Dioxide BUN 60 H Creatinine 1.3 H Glucose 110 H POC Glucose 119 H Lactic Acid Calcium Phosphorus Magnesium Direct Bilirubin AST ALT Alkaline Phosphatase Lactate Dehydrogenase Troponin T C-Reactive Protein Total Protein Albumin Prealbumin Triglycerides Cholesterol LDL Cholesterol Direct HDL Cholesterol PTH Intact Urine pH Urine WBC (Auto) Urine Creatinine Urine Total Protein Fluid Total Protein Vancomycin Trough Rheumatoid Factor Complement C4 Miscellaneous Test Crossmatch 01/03/17 01/03/17 01/04/17 18:13 23:40 05:57 WBC RBC Hgb Hct MCV MCH MCHC RDW Plt Count Lymph % (Auto) [place] % (Auto) Lymph # [place] # Baso # Seg Neutrophils % Seg Neuts % (Manual) Lymphocytes % (Manual) Monocytes % (Manual) Eosinophils % (Manual) Basophils % (Manual) Nucleated RBC % Seg Neutrophils # Seg Neutrophils # Man Lymphocytes # (Manual) Monocytes # (Manual) Eosinophils # (Manual) Basophils # (Manual) PT INR Fibrinogen dRVVT Confirm Interp Factor V Activity POC ABG pH POC ABG pCO2 POC ABG pO2 ABG pO2 ABG HCO3 ABG Base Excess ABG Hemoglobin Oxyhemoglobin Sodium Potassium Chloride Carbon Dioxide BUN Creatinine Glucose POC Glucose 107 H 129 H 111 H Lactic Acid Calcium Phosphorus Magnesium Direct Bilirubin AST ALT Alkaline Phosphatase Lactate Dehydrogenase Troponin T C-Reactive Protein Total Protein Albumin Prealbumin Triglycerides Cholesterol LDL Cholesterol Direct HDL Cholesterol PTH Intact Urine pH Urine WBC (Auto) Urine Creatinine Urine Total Protein Fluid Total Protein Vancomycin Trough Rheumatoid Factor Complement C4 Miscellaneous Test Crossmatch 01/04/17 01/04/17 01/04/17 12:46 15:27 17:11 WBC RBC Hgb Hct MCV MCH MCHC RDW Plt Count Lymph % (Auto) [place] % (Auto) Lymph # [place] # Baso # Seg Neutrophils % Seg Neuts % (Manual) Lymphocytes % (Manual) Monocytes % (Manual) Eosinophils % (Manual) Basophils % (Manual) Nucleated RBC % Seg Neutrophils # Seg Neutrophils # Man Lymphocytes # (Manual) Monocytes # (Manual) Eosinophils # (Manual) Basophils # (Manual) PT INR Fibrinogen dRVVT Confirm Interp Factor V Activity POC ABG pH POC ABG pCO2 POC ABG pO2 ABG pO2 ABG HCO3 ABG Base Excess ABG Hemoglobin Oxyhemoglobin Sodium Potassium Chloride Carbon Dioxide BUN 43 H Creatinine Glucose 124 H POC Glucose 159 H 125 H Lactic Acid Calcium 8.0 L Phosphorus 2.10 L Magnesium Direct Bilirubin AST ALT Alkaline Phosphatase Lactate Dehydrogenase Troponin T C-Reactive Protein Total Protein Albumin Prealbumin Triglycerides Cholesterol LDL Cholesterol Direct HDL Cholesterol PTH Intact Urine pH Urine WBC (Auto) Urine Creatinine Urine Total Protein Fluid Total Protein Vancomycin Trough Rheumatoid Factor Complement C4 Miscellaneous Test Crossmatch 01/04/17 01/05/17 01/05/17 23:31 04:00 05:46 WBC RBC Hgb Hct MCV MCH MCHC RDW Plt Count Lymph % (Auto) [place] % (Auto) Lymph # [place] # Baso # Seg Neutrophils % Seg Neuts % (Manual) Lymphocytes % (Manual) Monocytes % (Manual) Eosinophils % (Manual) Basophils % (Manual) Nucleated RBC % Seg Neutrophils # Seg Neutrophils # Man Lymphocytes # (Manual) Monocytes # (Manual) Eosinophils # (Manual) Basophils # (Manual) PT INR Fibrinogen dRVVT Confirm Interp Factor V Activity POC ABG pH POC ABG pCO2 POC ABG pO2 ABG pO2 ABG HCO3 ABG Base Excess ABG Hemoglobin Oxyhemoglobin Sodium Potassium Chloride Carbon Dioxide BUN 52 H Creatinine 1.3 H Glucose 113 H POC Glucose 123 H 118 H Lactic Acid Calcium Phosphorus 2.40 L Magnesium Direct Bilirubin AST ALT Alkaline Phosphatase Lactate Dehydrogenase Troponin T C-Reactive Protein Total Protein Albumin Prealbumin Triglycerides Cholesterol LDL Cholesterol Direct HDL Cholesterol PTH Intact Urine pH Urine WBC (Auto) Urine Creatinine Urine Total Protein Fluid Total Protein Vancomycin Trough Rheumatoid Factor Complement C4 Miscellaneous Test Crossmatch 01/05/17 01/05/17 01/05/17 11:41 17:48 23:27 WBC RBC Hgb Hct MCV MCH MCHC RDW Plt Count Lymph % (Auto) [place] % (Auto) Lymph # [place] # Baso # Seg Neutrophils % Seg Neuts % (Manual) Lymphocytes % (Manual) Monocytes % (Manual) Eosinophils % (Manual) Basophils % (Manual) Nucleated RBC % Seg Neutrophils # Seg Neutrophils # Man Lymphocytes # (Manual) Monocytes # (Manual) Eosinophils # (Manual) Basophils # (Manual) PT INR Fibrinogen dRVVT Confirm Interp Factor V Activity POC ABG pH POC ABG pCO2 POC ABG pO2 ABG pO2 ABG HCO3 ABG Base Excess ABG Hemoglobin Oxyhemoglobin Sodium Potassium Chloride Carbon Dioxide BUN Creatinine Glucose POC Glucose 163 H 142 H 155 H Lactic Acid Calcium Phosphorus Magnesium Direct Bilirubin AST ALT Alkaline Phosphatase Lactate Dehydrogenase Troponin T C-Reactive Protein Total Protein Albumin Prealbumin Triglycerides Cholesterol LDL Cholesterol Direct HDL Cholesterol PTH Intact Urine pH Urine WBC (Auto) Urine Creatinine Urine Total Protein Fluid Total Protein Vancomycin Trough Rheumatoid Factor Complement C4 Miscellaneous Test Crossmatch 01/06/17 01/06/17 01/06/17 05:20 07:35 11:18 WBC RBC Hgb Hct MCV MCH MCHC RDW Plt Count Lymph % (Auto) [place] % (Auto) Lymph # [place] # Baso # Seg Neutrophils % Seg Neuts % (Manual) Lymphocytes % (Manual) Monocytes % (Manual) Eosinophils % (Manual) Basophils % (Manual) Nucleated RBC % Seg Neutrophils # Seg Neutrophils # Man Lymphocytes # (Manual) Monocytes # (Manual) Eosinophils # (Manual) Basophils # (Manual) PT INR Fibrinogen dRVVT Confirm Interp Factor V Activity POC ABG pH POC ABG pCO2 POC ABG pO2 ABG pO2 ABG HCO3 ABG Base Excess ABG Hemoglobin Oxyhemoglobin Sodium Potassium Chloride Carbon Dioxide BUN 74 H Creatinine 1.6 H Glucose 135 H POC Glucose 108 H 149 H Lactic Acid Calcium Phosphorus Magnesium Direct Bilirubin AST ALT Alkaline Phosphatase Lactate Dehydrogenase Troponin T C-Reactive Protein Total Protein Albumin Prealbumin Triglycerides Cholesterol LDL Cholesterol Direct HDL Cholesterol PTH Intact Urine pH Urine WBC (Auto) Urine Creatinine Urine Total Protein Fluid Total Protein Vancomycin Trough Rheumatoid Factor Complement C4 Miscellaneous Test Crossmatch 01/06/17 01/07/17 01/07/17 17:17 00:23 05:31 WBC RBC Hgb Hct MCV MCH MCHC RDW Plt Count Lymph % (Auto) [place] % (Auto) Lymph # [place] # Baso # Seg Neutrophils % Seg Neuts % (Manual) Lymphocytes % (Manual) Monocytes % (Manual) Eosinophils % (Manual) Basophils % (Manual) Nucleated RBC % Seg Neutrophils # Seg Neutrophils # Man Lymphocytes # (Manual) Monocytes # (Manual) Eosinophils # (Manual) Basophils # (Manual) PT INR Fibrinogen dRVVT Confirm Interp Factor V Activity POC ABG pH POC ABG pCO2 POC ABG pO2 ABG pO2 ABG HCO3 ABG Base Excess ABG Hemoglobin Oxyhemoglobin Sodium Potassium Chloride Carbon Dioxide BUN Creatinine Glucose POC Glucose 146 H 165 H 153 H Lactic Acid Calcium Phosphorus Magnesium Direct Bilirubin AST ALT Alkaline Phosphatase Lactate Dehydrogenase Troponin T C-Reactive Protein Total Protein Albumin Prealbumin Triglycerides Cholesterol LDL Cholesterol Direct HDL Cholesterol PTH Intact Urine pH Urine WBC (Auto) Urine Creatinine Urine Total Protein Fluid Total Protein Vancomycin Trough Rheumatoid Factor Complement C4 Miscellaneous Test Crossmatch 01/07/17 01/07/17 01/07/17 06:00 11:39 17:11 WBC RBC Hgb Hct MCV MCH MCHC RDW Plt Count Lymph % (Auto) [place] % (Auto) Lymph # [place] # Baso # Seg Neutrophils % Seg Neuts % (Manual) Lymphocytes % (Manual) Monocytes % (Manual) Eosinophils % (Manual) Basophils % (Manual) Nucleated RBC % Seg Neutrophils # Seg Neutrophils # Man Lymphocytes # (Manual) Monocytes # (Manual) Eosinophils # (Manual) Basophils # (Manual) PT INR Fibrinogen dRVVT Confirm Interp Factor V Activity POC ABG pH POC ABG pCO2 POC ABG pO2 ABG pO2 ABG HCO3 ABG Base Excess ABG Hemoglobin Oxyhemoglobin Sodium Potassium Chloride Carbon Dioxide BUN 42 H Creatinine Glucose 175 H POC Glucose 163 H 163 H Lactic Acid Calcium Phosphorus 2.40 L D Magnesium Direct Bilirubin AST ALT Alkaline Phosphatase Lactate Dehydrogenase Troponin T C-Reactive Protein Total Protein Albumin Prealbumin Triglycerides Cholesterol LDL Cholesterol Direct HDL Cholesterol PTH Intact Urine pH Urine WBC (Auto) Urine Creatinine Urine Total Protein Fluid Total Protein Vancomycin Trough Rheumatoid Factor Complement C4 Miscellaneous Test Crossmatch 01/07/17 01/08/17 01/08/17 23:40 05:00 05:00 WBC 27.4 H RBC 2.27 L Hgb 6.1 L Hct 20.4 L MCV MCH 27 L MCHC RDW 17.8 H Plt Count Lymph % (Auto) [place] % (Auto) Lymph # [place] # Baso # Seg Neutrophils % Seg Neuts % (Manual) Lymphocytes % (Manual) Monocytes % (Manual) Eosinophils % (Manual) Basophils % (Manual) Nucleated RBC % Seg Neutrophils # Seg Neutrophils # Man Lymphocytes # (Manual) Monocytes # (Manual) Eosinophils # (Manual) Basophils # (Manual) PT INR Fibrinogen dRVVT Confirm Interp Factor V Activity POC ABG pH POC ABG pCO2 POC ABG pO2 ABG pO2 ABG HCO3 ABG Base Excess ABG Hemoglobin Oxyhemoglobin Sodium Potassium Chloride Carbon Dioxide 16 L D BUN 62 H Creatinine 1.6 H D Glucose 103 H POC Glucose 135 H Lactic Acid Calcium Phosphorus Magnesium Direct Bilirubin AST ALT Alkaline Phosphatase Lactate Dehydrogenase Troponin T C-Reactive Protein Total Protein Albumin Prealbumin Triglycerides Cholesterol LDL Cholesterol Direct HDL Cholesterol PTH Intact Urine pH Urine WBC (Auto) Urine Creatinine Urine Total Protein Fluid Total Protein Vancomycin Trough Rheumatoid Factor Complement C4 Miscellaneous Test Crossmatch 01/08/17 01/08/17 01/08/17 05:25 10:37 10:37 WBC RBC Hgb Hct MCV MCH MCHC RDW Plt Count Lymph % (Auto) [place] % (Auto) Lymph # [place] # Baso # Seg Neutrophils % Seg Neuts % (Manual) Lymphocytes % (Manual) Monocytes % (Manual) Eosinophils % (Manual) Basophils % (Manual) Nucleated RBC % Seg Neutrophils # Seg Neutrophils # Man Lymphocytes # (Manual) Monocytes # (Manual) Eosinophils # (Manual) Basophils # (Manual) PT INR Fibrinogen dRVVT Confirm Interp Factor V Activity POC ABG pH POC ABG pCO2 POC ABG pO2 ABG pO2 ABG HCO3 ABG Base Excess ABG Hemoglobin Oxyhemoglobin Sodium Potassium Chloride Carbon Dioxide BUN Creatinine Glucose POC Glucose 106 H Lactic Acid Calcium Phosphorus Magnesium Direct Bilirubin AST ALT Alkaline Phosphatase Lactate Dehydrogenase Troponin T C-Reactive Protein 24.40 H Total Protein Albumin Prealbumin Triglycerides Cholesterol LDL Cholesterol Direct HDL Cholesterol PTH Intact Urine pH Urine WBC (Auto) Urine Creatinine Urine Total Protein Fluid Total Protein Vancomycin Trough Rheumatoid Factor Complement C4 Miscellaneous Test Crossmatch See Detail 01/08/17 01/08/17 01/08/17 10:37 11:33 15:15 WBC RBC Hgb Hct MCV MCH MCHC RDW Plt Count Lymph % (Auto) [place] % (Auto) Lymph # [place] # Baso # Seg Neutrophils % Seg Neuts % (Manual) Lymphocytes % (Manual) Monocytes % (Manual) Eosinophils % (Manual) Basophils % (Manual) Nucleated RBC % Seg Neutrophils # Seg Neutrophils # Man Lymphocytes # (Manual) Monocytes # (Manual) Eosinophils # (Manual) Basophils # (Manual) PT INR Fibrinogen dRVVT Confirm Interp Factor V Activity POC ABG pH POC ABG pCO2 POC ABG pO2 ABG pO2 ABG HCO3 ABG Base Excess ABG Hemoglobin Oxyhemoglobin Sodium Potassium Chloride Carbon Dioxide BUN Creatinine Glucose POC Glucose 157 H Lactic Acid 9.70 H* 9.10 H* Calcium Phosphorus Magnesium Direct Bilirubin AST ALT Alkaline Phosphatase Lactate Dehydrogenase Troponin T C-Reactive Protein Total Protein Albumin Prealbumin Triglycerides Cholesterol LDL Cholesterol Direct HDL Cholesterol PTH Intact Urine pH Urine WBC (Auto) Urine Creatinine Urine Total Protein Fluid Total Protein Vancomycin Trough Rheumatoid Factor Complement C4 Miscellaneous Test Crossmatch 01/08/17 01/08/17 01/09/17 17:19 23:12 04:40 WBC RBC Hgb Hct MCV MCH MCHC RDW Plt Count Lymph % (Auto) [place] % (Auto) Lymph # [place] # Baso # Seg Neutrophils % Seg Neuts % (Manual) Lymphocytes % (Manual) Monocytes % (Manual) Eosinophils % (Manual) Basophils % (Manual) Nucleated RBC % Seg Neutrophils # Seg Neutrophils # Man Lymphocytes # (Manual) Monocytes # (Manual) Eosinophils # (Manual) Basophils # (Manual) PT INR Fibrinogen dRVVT Confirm Interp Factor V Activity POC ABG pH POC ABG pCO2 POC ABG pO2 ABG pO2 ABG HCO3 ABG Base Excess ABG Hemoglobin Oxyhemoglobin Sodium 147 H Potassium Chloride Carbon Dioxide BUN 82 H Creatinine 1.8 H Glucose 137 H POC Glucose 164 H 157 H Lactic Acid Calcium Phosphorus Magnesium Direct Bilirubin AST ALT Alkaline Phosphatase Lactate Dehydrogenase Troponin T C-Reactive Protein Total Protein Albumin Prealbumin Triglycerides Cholesterol LDL Cholesterol Direct HDL Cholesterol PTH Intact Urine pH Urine WBC (Auto) Urine Creatinine Urine Total Protein Fluid Total Protein Vancomycin Trough Rheumatoid Factor Complement C4 Miscellaneous Test Crossmatch 01/09/17 01/09/17 01/09/17 05:42 08:22 10:57 WBC RBC Hgb Hct MCV MCH MCHC RDW Plt Count Lymph % (Auto) [place] % (Auto) Lymph # [place] # Baso # Seg Neutrophils % Seg Neuts % (Manual) Lymphocytes % (Manual) Monocytes % (Manual) Eosinophils % (Manual) Basophils % (Manual) Nucleated RBC % Seg Neutrophils # Seg Neutrophils # Man Lymphocytes # (Manual) Monocytes # (Manual) Eosinophils # (Manual) Basophils # (Manual) PT INR Fibrinogen dRVVT Confirm Interp Factor V Activity POC ABG pH POC ABG pCO2 POC ABG pO2 ABG pO2 ABG HCO3 ABG Base Excess ABG Hemoglobin Oxyhemoglobin Sodium Potassium Chloride Carbon Dioxide BUN Creatinine Glucose POC Glucose 156 H 122 H Lactic Acid 2.30 H* Calcium Phosphorus Magnesium Direct Bilirubin AST ALT Alkaline Phosphatase Lactate Dehydrogenase Troponin T C-Reactive Protein Total Protein Albumin Prealbumin Triglycerides Cholesterol LDL Cholesterol Direct HDL Cholesterol PTH Intact Urine pH Urine WBC (Auto) Urine Creatinine Urine Total Protein Fluid Total Protein Vancomycin Trough Rheumatoid Factor Complement C4 Miscellaneous Test Crossmatch 01/09/17 01/09/17 01/09/17 13:30 17:14 18:45 WBC RBC Hgb Hct MCV MCH MCHC RDW Plt Count Lymph % (Auto) [place] % (Auto) Lymph # [place] # Baso # Seg Neutrophils % Seg Neuts % (Manual) Lymphocytes % (Manual) Monocytes % (Manual) Eosinophils % (Manual) Basophils % (Manual) Nucleated RBC % Seg Neutrophils # Seg Neutrophils # Man Lymphocytes # (Manual) Monocytes # (Manual) Eosinophils # (Manual) Basophils # (Manual) PT INR Fibrinogen dRVVT Confirm Interp Factor V Activity POC ABG pH POC ABG pCO2 POC ABG pO2 ABG pO2 ABG HCO3 ABG Base Excess ABG Hemoglobin Oxyhemoglobin Sodium Potassium Chloride Carbon Dioxide BUN Creatinine Glucose POC Glucose 127 H Lactic Acid Calcium Phosphorus Magnesium Direct Bilirubin AST ALT Alkaline Phosphatase Lactate Dehydrogenase Troponin T C-Reactive Protein 24.70 H Total Protein Albumin Prealbumin Triglycerides Cholesterol LDL Cholesterol Direct HDL Cholesterol PTH Intact Urine pH Urine WBC (Auto) Urine Creatinine Urine Total Protein Fluid Total Protein Vancomycin Trough Rheumatoid Factor Complement C4 Miscellaneous Test Flexitest 1 H Crossmatch 01/10/17 01/10/17 01/10/17 01:21 04:00 04:00 WBC 18.1 H RBC 3.22 L Hgb 8.8 L Hct 27.0 L D MCV MCH 27 L MCHC RDW 17.0 H Plt Count Lymph % (Auto) [place] % (Auto) Lymph # [place] # Baso # Seg Neutrophils % Seg Neuts % (Manual) Lymphocytes % (Manual) Monocytes % (Manual) Eosinophils % (Manual) Basophils % (Manual) Nucleated RBC % Seg Neutrophils # Seg Neutrophils # Man Lymphocytes # (Manual) Monocytes # (Manual) Eosinophils # (Manual) Basophils # (Manual) PT INR Fibrinogen dRVVT Confirm Interp Factor V Activity POC ABG pH POC ABG pCO2 POC ABG pO2 ABG pO2 ABG HCO3 ABG Base Excess ABG Hemoglobin Oxyhemoglobin Sodium Potassium Chloride Carbon Dioxide BUN 59 H Creatinine 1.3 H Glucose 122 H POC Glucose 160 H Lactic Acid Calcium Phosphorus Magnesium Direct Bilirubin AST ALT Alkaline Phosphatase Lactate Dehydrogenase Troponin T C-Reactive Protein Total Protein Albumin Prealbumin Triglycerides Cholesterol LDL Cholesterol Direct HDL Cholesterol PTH Intact Urine pH Urine WBC (Auto) Urine Creatinine Urine Total Protein Fluid Total Protein Vancomycin Trough Rheumatoid Factor Complement C4 Miscellaneous Test Crossmatch 01/10/17 01/10/17 01/10/17 05:36 12:14 17:55 WBC RBC Hgb Hct MCV MCH MCHC RDW Plt Count Lymph % (Auto) [place] % (Auto) Lymph # [place] # Baso # Seg Neutrophils % Seg Neuts % (Manual) Lymphocytes % (Manual) Monocytes % (Manual) Eosinophils % (Manual) Basophils % (Manual) Nucleated RBC % Seg Neutrophils # Seg Neutrophils # Man Lymphocytes # (Manual) Monocytes # (Manual) Eosinophils # (Manual) Basophils # (Manual) PT INR Fibrinogen dRVVT Confirm Interp Factor V Activity POC ABG pH POC ABG pCO2 POC ABG pO2 ABG pO2 ABG HCO3 ABG Base Excess ABG Hemoglobin Oxyhemoglobin Sodium Potassium Chloride Carbon Dioxide BUN Creatinine Glucose POC Glucose 163 H 120 H 144 H Lactic Acid Calcium Phosphorus Magnesium Direct Bilirubin AST ALT Alkaline Phosphatase Lactate Dehydrogenase Troponin T C-Reactive Protein Total Protein Albumin Prealbumin Triglycerides Cholesterol LDL Cholesterol Direct HDL Cholesterol PTH Intact Urine pH Urine WBC (Auto) Urine Creatinine Urine Total Protein Fluid Total Protein Vancomycin Trough Rheumatoid Factor Complement C4 Miscellaneous Test Crossmatch 01/11/17 01/11/17 01/11/17 00:09 04:00 04:00 WBC 15.8 H RBC 3.04 L Hgb 8.2 L Hct 25.5 L MCV MCH 27 L MCHC RDW 17.3 H Plt Count Lymph % (Auto) [place] % (Auto) Lymph # [place] # Baso # Seg Neutrophils % Seg Neuts % (Manual) Lymphocytes % (Manual) Monocytes % (Manual) Eosinophils % (Manual) Basophils % (Manual) Nucleated RBC % Seg Neutrophils # Seg Neutrophils # Man Lymphocytes # (Manual) Monocytes # (Manual) Eosinophils # (Manual) Basophils # (Manual) PT INR Fibrinogen dRVVT Confirm Interp Factor V Activity POC ABG pH POC ABG pCO2 POC ABG pO2 ABG pO2 ABG HCO3 ABG Base Excess ABG Hemoglobin Oxyhemoglobin Sodium Potassium Chloride Carbon Dioxide BUN 78 H Creatinine 1.6 H Glucose 109 H POC Glucose 122 H Lactic Acid Calcium Phosphorus Magnesium Direct Bilirubin AST ALT Alkaline Phosphatase Lactate Dehydrogenase Troponin T C-Reactive Protein Total Protein Albumin Prealbumin Triglycerides Cholesterol LDL Cholesterol Direct HDL Cholesterol PTH Intact Urine pH Urine WBC (Auto) Urine Creatinine Urine Total Protein Fluid Total Protein Vancomycin Trough Rheumatoid Factor Complement C4 Miscellaneous Test Crossmatch 01/11/17 01/11/17 01/11/17 12:46 18:23 23:42 WBC RBC Hgb Hct MCV MCH MCHC RDW Plt Count Lymph % (Auto) [place] % (Auto) Lymph # [place] # Baso # Seg Neutrophils % Seg Neuts % (Manual) Lymphocytes % (Manual) Monocytes % (Manual) Eosinophils % (Manual) Basophils % (Manual) Nucleated RBC % Seg Neutrophils # Seg Neutrophils # Man Lymphocytes # (Manual) Monocytes # (Manual) Eosinophils # (Manual) Basophils # (Manual) PT INR Fibrinogen dRVVT Confirm Interp Factor V Activity POC ABG pH POC ABG pCO2 POC ABG pO2 ABG pO2 ABG HCO3 ABG Base Excess ABG Hemoglobin Oxyhemoglobin Sodium Potassium Chloride Carbon Dioxide BUN Creatinine Glucose POC Glucose 148 H 125 H 124 H Lactic Acid Calcium Phosphorus Magnesium Direct Bilirubin AST ALT Alkaline Phosphatase Lactate Dehydrogenase Troponin T C-Reactive Protein Total Protein Albumin Prealbumin Triglycerides Cholesterol LDL Cholesterol Direct HDL Cholesterol PTH Intact Urine pH Urine WBC (Auto) Urine Creatinine Urine Total Protein Fluid Total Protein Vancomycin Trough Rheumatoid Factor Complement C4 Miscellaneous Test Crossmatch 01/12/17 01/12/17 01/12/17 04:30 04:30 05:47 WBC 15.8 H RBC 3.31 L Hgb 8.9 L Hct 27.9 L MCV MCH 27 L MCHC RDW 17.4 H Plt Count Lymph % (Auto) [place] % (Auto) Lymph # [place] # Baso # Seg Neutrophils % Seg Neuts % (Manual) Lymphocytes % (Manual) Monocytes % (Manual) Eosinophils % (Manual) Basophils % (Manual) Nucleated RBC % Seg Neutrophils # Seg Neutrophils # Man Lymphocytes # (Manual) Monocytes # (Manual) Eosinophils # (Manual) Basophils # (Manual) PT INR Fibrinogen dRVVT Confirm Interp Factor V Activity POC ABG pH POC ABG pCO2 POC ABG pO2 ABG pO2 ABG HCO3 ABG Base Excess ABG Hemoglobin Oxyhemoglobin Sodium Potassium Chloride Carbon Dioxide BUN 57 H Creatinine Glucose 121 H POC Glucose 110 H Lactic Acid Calcium Phosphorus 2.10 L Magnesium Direct Bilirubin AST ALT Alkaline Phosphatase Lactate Dehydrogenase Troponin T C-Reactive Protein Total Protein Albumin Prealbumin Triglycerides Cholesterol LDL Cholesterol Direct HDL Cholesterol PTH Intact Urine pH Urine WBC (Auto) Urine Creatinine Urine Total Protein Fluid Total Protein Vancomycin Trough Rheumatoid Factor Complement C4 Miscellaneous Test Crossmatch 01/12/17 01/12/17 01/12/17 11:35 17:45 23:14 WBC RBC Hgb Hct MCV MCH MCHC RDW Plt Count Lymph % (Auto) [place] % (Auto) Lymph # [place] # Baso # Seg Neutrophils % Seg Neuts % (Manual) Lymphocytes % (Manual) Monocytes % (Manual) Eosinophils % (Manual) Basophils % (Manual) Nucleated RBC % Seg Neutrophils # Seg Neutrophils # Man Lymphocytes # (Manual) Monocytes # (Manual) Eosinophils # (Manual) Basophils # (Manual) PT INR Fibrinogen dRVVT Confirm Interp Factor V Activity POC ABG pH POC ABG pCO2 POC ABG pO2 ABG pO2 ABG HCO3 ABG Base Excess ABG Hemoglobin Oxyhemoglobin Sodium Potassium Chloride Carbon Dioxide BUN Creatinine Glucose POC Glucose 146 H 117 H 123 H Lactic Acid Calcium Phosphorus Magnesium Direct Bilirubin AST ALT Alkaline Phosphatase Lactate Dehydrogenase Troponin T C-Reactive Protein Total Protein Albumin Prealbumin Triglycerides Cholesterol LDL Cholesterol Direct HDL Cholesterol PTH Intact Urine pH Urine WBC (Auto) Urine Creatinine Urine Total Protein Fluid Total Protein Vancomycin Trough Rheumatoid Factor Complement C4 Miscellaneous Test Crossmatch 01/13/17 01/13/17 01/13/17 05:32 06:00 12:10 WBC RBC Hgb Hct MCV MCH MCHC RDW Plt Count Lymph % (Auto) [place] % (Auto) Lymph # [place] # Baso # Seg Neutrophils % Seg Neuts % (Manual) Lymphocytes % (Manual) Monocytes % (Manual) Eosinophils % (Manual) Basophils % (Manual) Nucleated RBC % Seg Neutrophils # Seg Neutrophils # Man Lymphocytes # (Manual) Monocytes # (Manual) Eosinophils # (Manual) Basophils # (Manual) PT INR Fibrinogen dRVVT Confirm Interp Factor V Activity POC ABG pH POC ABG pCO2 POC ABG pO2 ABG pO2 ABG HCO3 ABG Base Excess ABG Hemoglobin Oxyhemoglobin Sodium Potassium Chloride Carbon Dioxide BUN 80 H Creatinine 1.4 H Glucose 106 H POC Glucose 106 H Lactic Acid Calcium Phosphorus Magnesium Direct Bilirubin AST ALT Alkaline Phosphatase Lactate Dehydrogenase Troponin T C-Reactive Protein Total Protein Albumin Prealbumin Triglycerides Cholesterol LDL Cholesterol Direct HDL Cholesterol PTH Intact Urine pH Urine WBC (Auto) Urine Creatinine Urine Total Protein Fluid Total Protein 3.0 L Vancomycin Trough Rheumatoid Factor Complement C4 Miscellaneous Test Crossmatch 01/13/17 01/13/17 01/13/17 12:17 15:50 17:30 WBC RBC Hgb Hct MCV MCH MCHC RDW Plt Count Lymph % (Auto) [place] % (Auto) Lymph # [place] # Baso # Seg Neutrophils % Seg Neuts % (Manual) Lymphocytes % (Manual) Monocytes % (Manual) Eosinophils % (Manual) Basophils % (Manual) Nucleated RBC % Seg Neutrophils # Seg Neutrophils # Man Lymphocytes # (Manual) Monocytes # (Manual) Eosinophils # (Manual) Basophils # (Manual) PT 15.4 H INR 1.16 H Fibrinogen dRVVT Confirm Interp Factor V Activity POC ABG pH POC ABG pCO2 POC ABG pO2 ABG pO2 ABG HCO3 ABG Base Excess ABG Hemoglobin Oxyhemoglobin Sodium Potassium Chloride Carbon Dioxide BUN Creatinine Glucose POC Glucose 168 H 110 H Lactic Acid Calcium Phosphorus Magnesium Direct Bilirubin AST ALT Alkaline Phosphatase Lactate Dehydrogenase Troponin T C-Reactive Protein Total Protein Albumin Prealbumin Triglycerides Cholesterol LDL Cholesterol Direct HDL Cholesterol PTH Intact Urine pH Urine WBC (Auto) Urine Creatinine Urine Total Protein Fluid Total Protein Vancomycin Trough Rheumatoid Factor Complement C4 Miscellaneous Test Crossmatch 01/13/17 01/14/17 01/14/17 23:42 05:24 05:30 WBC RBC Hgb Hct MCV MCH MCHC RDW Plt Count Lymph % (Auto) [place] % (Auto) Lymph # [place] # Baso # Seg Neutrophils % Seg Neuts % (Manual) Lymphocytes % (Manual) Monocytes % (Manual) Eosinophils % (Manual) Basophils % (Manual) Nucleated RBC % Seg Neutrophils # Seg Neutrophils # Man Lymphocytes # (Manual) Monocytes # (Manual) Eosinophils # (Manual) Basophils # (Manual) PT INR Fibrinogen dRVVT Confirm Interp Factor V Activity POC ABG pH POC ABG pCO2 POC ABG pO2 ABG pO2 ABG HCO3 ABG Base Excess ABG Hemoglobin Oxyhemoglobin Sodium Potassium Chloride Carbon Dioxide BUN 58 H Creatinine Glucose 114 H POC Glucose 155 H 121 H Lactic Acid Calcium Phosphorus Magnesium Direct Bilirubin AST ALT Alkaline Phosphatase Lactate Dehydrogenase Troponin T C-Reactive Protein Total Protein Albumin Prealbumin Triglycerides Cholesterol LDL Cholesterol Direct HDL Cholesterol PTH Intact Urine pH Urine WBC (Auto) Urine Creatinine Urine Total Protein Fluid Total Protein Vancomycin Trough Rheumatoid Factor Complement C4 Miscellaneous Test Crossmatch 01/14/17 01/14/17 01/15/17 12:48 17:36 00:15 WBC RBC Hgb Hct MCV MCH MCHC RDW Plt Count Lymph % (Auto) [place] % (Auto) Lymph # [place] # Baso # Seg Neutrophils % Seg Neuts % (Manual) Lymphocytes % (Manual) Monocytes % (Manual) Eosinophils % (Manual) Basophils % (Manual) Nucleated RBC % Seg Neutrophils # Seg Neutrophils # Man Lymphocytes # (Manual) Monocytes # (Manual) Eosinophils # (Manual) Basophils # (Manual) PT INR Fibrinogen dRVVT Confirm Interp Factor V Activity POC ABG pH POC ABG pCO2 POC ABG pO2 ABG pO2 ABG HCO3 ABG Base Excess ABG Hemoglobin Oxyhemoglobin Sodium Potassium Chloride Carbon Dioxide BUN Creatinine Glucose POC Glucose 130 H 135 H 132 H Lactic Acid Calcium Phosphorus Magnesium Direct Bilirubin AST ALT Alkaline Phosphatase Lactate Dehydrogenase Troponin T C-Reactive Protein Total Protein Albumin Prealbumin Triglycerides Cholesterol LDL Cholesterol Direct HDL Cholesterol PTH Intact Urine pH Urine WBC (Auto) Urine Creatinine Urine Total Protein Fluid Total Protein Vancomycin Trough Rheumatoid Factor Complement C4 Miscellaneous Test Crossmatch 01/15/17 01/15/17 01/15/17 05:01 11:55 12:45 WBC 16.2 H RBC 3.00 L Hgb 8.1 L Hct 25.4 L MCV MCH 27 L MCHC RDW 17.6 H Plt Count Lymph % (Auto) 11.7 L [place] % (Auto) 7.8 H Lymph # [place] # 1.3 H Baso # Seg Neutrophils % 80.1 H Seg Neuts % (Manual) Lymphocytes % (Manual) Monocytes % (Manual) Eosinophils % (Manual) Basophils % (Manual) Nucleated RBC % Seg Neutrophils # 13.0 H Seg Neutrophils # Man Lymphocytes # (Manual) Monocytes # (Manual) Eosinophils # (Manual) Basophils # (Manual) PT INR Fibrinogen dRVVT Confirm Interp Factor V Activity POC ABG pH POC ABG pCO2 POC ABG pO2 ABG pO2 ABG HCO3 ABG Base Excess ABG Hemoglobin Oxyhemoglobin Sodium Potassium Chloride Carbon Dioxide BUN Creatinine Glucose POC Glucose 126 H 125 H Lactic Acid Calcium Phosphorus Magnesium Direct Bilirubin AST ALT Alkaline Phosphatase Lactate Dehydrogenase Troponin T C-Reactive Protein Total Protein Albumin Prealbumin Triglycerides Cholesterol LDL Cholesterol Direct HDL Cholesterol PTH Intact Urine pH Urine WBC (Auto) Urine Creatinine Urine Total Protein Fluid Total Protein Vancomycin Trough Rheumatoid Factor Complement C4 Miscellaneous Test Crossmatch 01/15/17 01/15/17 01/15/17 12:45 17:31 23:39 WBC RBC Hgb Hct MCV MCH MCHC RDW Plt Count Lymph % (Auto) [place] % (Auto) Lymph # [place] # Baso # Seg Neutrophils % Seg Neuts % (Manual) Lymphocytes % (Manual) Monocytes % (Manual) Eosinophils % (Manual) Basophils % (Manual) Nucleated RBC % Seg Neutrophils # Seg Neutrophils # Man Lymphocytes # (Manual) Monocytes # (Manual) Eosinophils # (Manual) Basophils # (Manual) PT INR Fibrinogen dRVVT Confirm Interp Factor V Activity POC ABG pH POC ABG pCO2 POC ABG pO2 ABG pO2 ABG HCO3 ABG Base Excess ABG Hemoglobin Oxyhemoglobin Sodium 136 L Potassium Chloride Carbon Dioxide BUN 87 H Creatinine 1.7 H Glucose 108 H POC Glucose 129 H 112 H Lactic Acid Calcium Phosphorus Magnesium Direct Bilirubin AST ALT Alkaline Phosphatase Lactate Dehydrogenase Troponin T C-Reactive Protein Total Protein Albumin Prealbumin Triglycerides Cholesterol LDL Cholesterol Direct HDL Cholesterol PTH Intact Urine pH Urine WBC (Auto) Urine Creatinine Urine Total Protein Fluid Total Protein Vancomycin Trough Rheumatoid Factor Complement C4 Miscellaneous Test Crossmatch 01/16/17 01/16/17 01/16/17 05:23 11:42 12:32 WBC RBC Hgb Hct MCV MCH MCHC RDW Plt Count Lymph % (Auto) [place] % (Auto) Lymph # [place] # Baso # Seg Neutrophils % Seg Neuts % (Manual) Lymphocytes % (Manual) Monocytes % (Manual) Eosinophils % (Manual) Basophils % (Manual) Nucleated RBC % Seg Neutrophils # Seg Neutrophils # Man Lymphocytes # (Manual) Monocytes # (Manual) Eosinophils # (Manual) Basophils # (Manual) PT INR Fibrinogen dRVVT Confirm Interp Factor V Activity POC ABG pH 7.499 H POC ABG pCO2 30.9 L POC ABG pO2 51 L ABG pO2 ABG HCO3 ABG Base Excess ABG Hemoglobin Oxyhemoglobin Sodium Potassium Chloride Carbon Dioxide BUN Creatinine Glucose POC Glucose 118 H 133 H Lactic Acid Calcium Phosphorus Magnesium Direct Bilirubin AST ALT Alkaline Phosphatase Lactate Dehydrogenase Troponin T C-Reactive Protein Total Protein Albumin Prealbumin Triglycerides Cholesterol LDL Cholesterol Direct HDL Cholesterol PTH Intact Urine pH Urine WBC (Auto) Urine Creatinine Urine Total Protein Fluid Total Protein Vancomycin Trough Rheumatoid Factor Complement C4 Miscellaneous Test Crossmatch 01/16/17 01/16/17 01/16/17 17:52 23:57 Unknown WBC RBC Hgb Hct MCV MCH MCHC RDW Plt Count Lymph % (Auto) [place] % (Auto) Lymph # [place] # Baso # Seg Neutrophils % Seg Neuts % (Manual) Lymphocytes % (Manual) Monocytes % (Manual) Eosinophils % (Manual) Basophils % (Manual) Nucleated RBC % Seg Neutrophils # Seg Neutrophils # Man Lymphocytes # (Manual) Monocytes # (Manual) Eosinophils # (Manual) Basophils # (Manual) PT INR Fibrinogen dRVVT Confirm Interp Factor V Activity POC ABG pH POC ABG pCO2 POC ABG pO2 ABG pO2 ABG HCO3 ABG Base Excess ABG Hemoglobin Oxyhemoglobin Sodium 135 L Potassium Chloride Carbon Dioxide BUN 101 H Creatinine 1.8 H Glucose 117 H POC Glucose 130 H 143 H Lactic Acid Calcium Phosphorus 5.80 H Magnesium Direct Bilirubin AST ALT Alkaline Phosphatase Lactate Dehydrogenase Troponin T C-Reactive Protein Total Protein Albumin Prealbumin Triglycerides Cholesterol LDL Cholesterol Direct HDL Cholesterol PTH Intact Urine pH Urine WBC (Auto) Urine Creatinine Urine Total Protein Fluid Total Protein Vancomycin Trough Rheumatoid Factor Complement C4 Miscellaneous Test Crossmatch 01/17/17 01/17/17 01/17/17 05:30 05:46 11:49 WBC RBC Hgb Hct MCV MCH MCHC RDW Plt Count Lymph % (Auto) [place] % (Auto) Lymph # [place] # Baso # Seg Neutrophils % Seg Neuts % (Manual) Lymphocytes % (Manual) Monocytes % (Manual) Eosinophils % (Manual) Basophils % (Manual) Nucleated RBC % Seg Neutrophils # Seg Neutrophils # Man Lymphocytes # (Manual) Monocytes # (Manual) Eosinophils # (Manual) Basophils # (Manual) PT INR Fibrinogen dRVVT Confirm Interp Factor V Activity POC ABG pH POC ABG pCO2 POC ABG pO2 ABG pO2 ABG HCO3 ABG Base Excess ABG Hemoglobin Oxyhemoglobin Sodium 134 L Potassium Chloride 95.8 L Carbon Dioxide BUN 66 H Creatinine 1.3 H Glucose 138 H POC Glucose 147 H 124 H Lactic Acid Calcium Phosphorus Magnesium Direct Bilirubin AST ALT Alkaline Phosphatase 254 H Lactate Dehydrogenase Troponin T C-Reactive Protein Total Protein Albumin 1.3 L Prealbumin Triglycerides Cholesterol LDL Cholesterol Direct HDL Cholesterol PTH Intact Urine pH Urine WBC (Auto) Urine Creatinine Urine Total Protein Fluid Total Protein Vancomycin Trough Rheumatoid Factor Complement C4 Miscellaneous Test Crossmatch 01/17/17 01/17/17 01/18/17 17:30 23:41 05:15 WBC RBC Hgb Hct MCV MCH MCHC RDW Plt Count Lymph % (Auto) [place] % (Auto) Lymph # [place] # Baso # Seg Neutrophils % Seg Neuts % (Manual) Lymphocytes % (Manual) Monocytes % (Manual) Eosinophils % (Manual) Basophils % (Manual) Nucleated RBC % Seg Neutrophils # Seg Neutrophils # Man Lymphocytes # (Manual) Monocytes # (Manual) Eosinophils # (Manual) Basophils # (Manual) PT INR Fibrinogen dRVVT Confirm Interp Factor V Activity POC ABG pH POC ABG pCO2 POC ABG pO2 ABG pO2 ABG HCO3 ABG Base Excess ABG Hemoglobin Oxyhemoglobin Sodium Potassium Chloride Carbon Dioxide BUN 89 H Creatinine 1.7 H Glucose 118 H POC Glucose 137 H 119 H Lactic Acid Calcium Phosphorus Magnesium Direct Bilirubin AST ALT Alkaline Phosphatase Lactate Dehydrogenase Troponin T C-Reactive Protein Total Protein Albumin Prealbumin Triglycerides Cholesterol LDL Cholesterol Direct HDL Cholesterol PTH Intact Urine pH Urine WBC (Auto) Urine Creatinine Urine Total Protein Fluid Total Protein Vancomycin Trough Rheumatoid Factor Complement C4 Miscellaneous Test Crossmatch 01/18/17 01/18/17 01/18/17 05:19 12:16 18:11 WBC RBC Hgb Hct MCV MCH MCHC RDW Plt Count Lymph % (Auto) [place] % (Auto) Lymph # [place] # Baso # Seg Neutrophils % Seg Neuts % (Manual) Lymphocytes % (Manual) Monocytes % (Manual) Eosinophils % (Manual) Basophils % (Manual) Nucleated RBC % Seg Neutrophils # Seg Neutrophils # Man Lymphocytes # (Manual) Monocytes # (Manual) Eosinophils # (Manual) Basophils # (Manual) PT INR Fibrinogen dRVVT Confirm Interp Factor V Activity POC ABG pH POC ABG pCO2 POC ABG pO2 ABG pO2 ABG HCO3 ABG Base Excess ABG Hemoglobin Oxyhemoglobin Sodium Potassium Chloride Carbon Dioxide BUN Creatinine Glucose POC Glucose 134 H 188 H 113 H Lactic Acid Calcium Phosphorus Magnesium Direct Bilirubin AST ALT Alkaline Phosphatase Lactate Dehydrogenase Troponin T C-Reactive Protein Total Protein Albumin Prealbumin Triglycerides Cholesterol LDL Cholesterol Direct HDL Cholesterol PTH Intact Urine pH Urine WBC (Auto) Urine Creatinine Urine Total Protein Fluid Total Protein Vancomycin Trough Rheumatoid Factor Complement C4 Miscellaneous Test Crossmatch 01/19/17 01/19/17 01/19/17 00:00 05:30 05:36 WBC RBC Hgb Hct MCV MCH MCHC RDW Plt Count Lymph % (Auto) [place] % (Auto) Lymph # [place] # Baso # Seg Neutrophils % Seg Neuts % (Manual) Lymphocytes % (Manual) Monocytes % (Manual) Eosinophils % (Manual) Basophils % (Manual) Nucleated RBC % Seg Neutrophils # Seg Neutrophils # Man Lymphocytes # (Manual) Monocytes # (Manual) Eosinophils # (Manual) Basophils # (Manual) PT INR Fibrinogen dRVVT Confirm Interp Factor V Activity POC ABG pH POC ABG pCO2 POC ABG pO2 ABG pO2 ABG HCO3 ABG Base Excess ABG Hemoglobin Oxyhemoglobin Sodium Potassium Chloride Carbon Dioxide BUN 70 H Creatinine 1.5 H Glucose 121 H POC Glucose 137 H 155 H Lactic Acid Calcium Phosphorus 2.10 L D Magnesium Direct Bilirubin AST ALT Alkaline Phosphatase Lactate Dehydrogenase Troponin T C-Reactive Protein Total Protein Albumin Prealbumin Triglycerides Cholesterol LDL Cholesterol Direct HDL Cholesterol PTH Intact Urine pH Urine WBC (Auto) Urine Creatinine Urine Total Protein Fluid Total Protein Vancomycin Trough Rheumatoid Factor Complement C4 Miscellaneous Test Crossmatch 01/19/17 01/19/17 01/19/17 11:59 15:32 17:57 WBC RBC Hgb Hct MCV MCH MCHC RDW Plt Count Lymph % (Auto) [place] % (Auto) Lymph # [place] # Baso # Seg Neutrophils % Seg Neuts % (Manual) Lymphocytes % (Manual) Monocytes % (Manual) Eosinophils % (Manual) Basophils % (Manual) Nucleated RBC % Seg Neutrophils # Seg Neutrophils # Man Lymphocytes # (Manual) Monocytes # (Manual) Eosinophils # (Manual) Basophils # (Manual) PT INR Fibrinogen dRVVT Confirm Interp Factor V Activity POC ABG pH POC ABG pCO2 33.1 L POC ABG pO2 76 L ABG pO2 ABG HCO3 ABG Base Excess ABG Hemoglobin Oxyhemoglobin Sodium Potassium Chloride Carbon Dioxide BUN Creatinine Glucose POC Glucose 156 H 129 H Lactic Acid Calcium Phosphorus Magnesium Direct Bilirubin AST ALT Alkaline Phosphatase Lactate Dehydrogenase Troponin T C-Reactive Protein Total Protein Albumin Prealbumin Triglycerides Cholesterol LDL Cholesterol Direct HDL Cholesterol PTH Intact Urine pH Urine WBC (Auto) Urine Creatinine Urine Total Protein Fluid Total Protein Vancomycin Trough Rheumatoid Factor Complement C4 Miscellaneous Test Crossmatch 01/19/17 01/20/17 01/20/17 23:49 04:00 05:21 WBC RBC Hgb Hct MCV MCH MCHC RDW Plt Count Lymph % (Auto) [place] % (Auto) Lymph # [place] # Baso # Seg Neutrophils % Seg Neuts % (Manual) Lymphocytes % (Manual) Monocytes % (Manual) Eosinophils % (Manual) Basophils % (Manual) Nucleated RBC % Seg Neutrophils # Seg Neutrophils # Man Lymphocytes # (Manual) Monocytes # (Manual) Eosinophils # (Manual) Basophils # (Manual) PT INR Fibrinogen dRVVT Confirm Interp Factor V Activity POC ABG pH POC ABG pCO2 POC ABG pO2 ABG pO2 ABG HCO3 ABG Base Excess ABG Hemoglobin Oxyhemoglobin Sodium Potassium Chloride Carbon Dioxide BUN 96 H Creatinine 1.9 H Glucose 106 H POC Glucose 125 H 130 H Lactic Acid Calcium Phosphorus 2.40 L Magnesium Direct Bilirubin AST ALT Alkaline Phosphatase Lactate Dehydrogenase Troponin T C-Reactive Protein Total Protein Albumin Prealbumin Triglycerides Cholesterol LDL Cholesterol Direct HDL Cholesterol PTH Intact Urine pH Urine WBC (Auto) Urine Creatinine Urine Total Protein Fluid Total Protein Vancomycin Trough Rheumatoid Factor Complement C4 Miscellaneous Test Crossmatch 01/20/17 01/20/17 01/20/17 11:58 12:17 17:26 WBC RBC Hgb Hct MCV MCH MCHC RDW Plt Count Lymph % (Auto) [place] % (Auto) Lymph # [place] # Baso # Seg Neutrophils % Seg Neuts % (Manual) Lymphocytes % (Manual) Monocytes % (Manual) Eosinophils % (Manual) Basophils % (Manual) Nucleated RBC % Seg Neutrophils # Seg Neutrophils # Man Lymphocytes # (Manual) Monocytes # (Manual) Eosinophils # (Manual) Basophils # (Manual) PT INR Fibrinogen dRVVT Confirm Interp Factor V Activity POC ABG pH POC ABG pCO2 POC ABG pO2 70 L ABG pO2 ABG HCO3 ABG Base Excess ABG Hemoglobin Oxyhemoglobin Sodium Potassium Chloride Carbon Dioxide BUN Creatinine Glucose POC Glucose 118 H 154 H Lactic Acid Calcium Phosphorus Magnesium Direct Bilirubin AST ALT Alkaline Phosphatase Lactate Dehydrogenase Troponin T C-Reactive Protein Total Protein Albumin Prealbumin Triglycerides Cholesterol LDL Cholesterol Direct HDL Cholesterol PTH Intact Urine pH Urine WBC (Auto) Urine Creatinine Urine Total Protein Fluid Total Protein Vancomycin Trough Rheumatoid Factor Complement C4 Miscellaneous Test Crossmatch 01/21/17 01/21/17 01/21/17 04:00 04:56 11:46 WBC RBC Hgb Hct MCV MCH MCHC RDW Plt Count Lymph % (Auto) [place] % (Auto) Lymph # [place] # Baso # Seg Neutrophils % Seg Neuts % (Manual) Lymphocytes % (Manual) Monocytes % (Manual) Eosinophils % (Manual) Basophils % (Manual) Nucleated RBC % Seg Neutrophils # Seg Neutrophils # Man Lymphocytes # (Manual) Monocytes # (Manual) Eosinophils # (Manual) Basophils # (Manual) PT INR Fibrinogen dRVVT Confirm Interp Factor V Activity POC ABG pH POC ABG pCO2 POC ABG pO2 ABG pO2 ABG HCO3 ABG Base Excess ABG Hemoglobin Oxyhemoglobin Sodium Potassium 3.5 L Chloride 97.4 L Carbon Dioxide BUN 66 H Creatinine 1.4 H Glucose POC Glucose 116 H 106 H Lactic Acid Calcium Phosphorus 2.10 L Magnesium Direct Bilirubin AST ALT Alkaline Phosphatase Lactate Dehydrogenase Troponin T C-Reactive Protein Total Protein Albumin Prealbumin Triglycerides Cholesterol LDL Cholesterol Direct HDL Cholesterol PTH Intact Urine pH Urine WBC (Auto) Urine Creatinine Urine Total Protein Fluid Total Protein Vancomycin Trough Rheumatoid Factor Complement C4 Miscellaneous Test Crossmatch 01/21/17 01/21/17 01/22/17 17:25 23:49 05:35 WBC RBC Hgb Hct MCV MCH MCHC RDW Plt Count Lymph % (Auto) [place] % (Auto) Lymph # [place] # Baso # Seg Neutrophils % Seg Neuts % (Manual) Lymphocytes % (Manual) Monocytes % (Manual) Eosinophils % (Manual) Basophils % (Manual) Nucleated RBC % Seg Neutrophils # Seg Neutrophils # Man Lymphocytes # (Manual) Monocytes # (Manual) Eosinophils # (Manual) Basophils # (Manual) PT INR Fibrinogen dRVVT Confirm Interp Factor V Activity POC ABG pH POC ABG pCO2 POC ABG pO2 ABG pO2 ABG HCO3 ABG Base Excess ABG Hemoglobin Oxyhemoglobin Sodium Potassium Chloride Carbon Dioxide BUN Creatinine Glucose POC Glucose 106 H 133 H 107 H Lactic Acid Calcium Phosphorus Magnesium Direct Bilirubin AST ALT Alkaline Phosphatase Lactate Dehydrogenase Troponin T C-Reactive Protein Total Protein Albumin Prealbumin Triglycerides Cholesterol LDL Cholesterol Direct HDL Cholesterol PTH Intact Urine pH Urine WBC (Auto) Urine Creatinine Urine Total Protein Fluid Total Protein Vancomycin Trough Rheumatoid Factor Complement C4 Miscellaneous Test Crossmatch 01/22/17 01/22/17 01/22/17 07:20 07:20 11:31 WBC RBC 2.75 L Hgb 7.5 L Hct 22.7 L MCV MCH 27 L MCHC RDW 17.5 H Plt Count Lymph % (Auto) [place] % (Auto) Lymph # [place] # Baso # Seg Neutrophils % Seg Neuts % (Manual) Lymphocytes % (Manual) Monocytes % (Manual) Eosinophils % (Manual) Basophils % (Manual) Nucleated RBC % Seg Neutrophils # Seg Neutrophils # Man Lymphocytes # (Manual) Monocytes # (Manual) Eosinophils # (Manual) Basophils # (Manual) PT INR Fibrinogen dRVVT Confirm Interp Factor V Activity POC ABG pH POC ABG pCO2 POC ABG pO2 ABG pO2 ABG HCO3 ABG Base Excess ABG Hemoglobin Oxyhemoglobin Sodium Potassium 3.3 L Chloride Carbon Dioxide BUN 42 H Creatinine Glucose 105 H POC Glucose 124 H Lactic Acid Calcium Phosphorus 1.70 L Magnesium Direct Bilirubin AST ALT Alkaline Phosphatase Lactate Dehydrogenase Troponin T C-Reactive Protein Total Protein Albumin Prealbumin Triglycerides Cholesterol LDL Cholesterol Direct HDL Cholesterol PTH Intact Urine pH Urine WBC (Auto) Urine Creatinine Urine Total Protein Fluid Total Protein Vancomycin Trough Rheumatoid Factor Complement C4 Miscellaneous Test Crossmatch 01/22/17 01/22/17 01/23/17 17:16 23:35 05:35 WBC RBC Hgb Hct MCV MCH MCHC RDW Plt Count Lymph % (Auto) [place] % (Auto) Lymph # [place] # Baso # Seg Neutrophils % Seg Neuts % (Manual) Lymphocytes % (Manual) Monocytes % (Manual) Eosinophils % (Manual) Basophils % (Manual) Nucleated RBC % Seg Neutrophils # Seg Neutrophils # Man Lymphocytes # (Manual) Monocytes # (Manual) Eosinophils # (Manual) Basophils # (Manual) PT INR Fibrinogen dRVVT Confirm Interp Factor V Activity POC ABG pH POC ABG pCO2 POC ABG pO2 ABG pO2 ABG HCO3 ABG Base Excess ABG Hemoglobin Oxyhemoglobin Sodium Potassium Chloride Carbon Dioxide BUN Creatinine Glucose POC Glucose 135 H 120 H 111 H Lactic Acid Calcium Phosphorus Magnesium Direct Bilirubin AST ALT Alkaline Phosphatase Lactate Dehydrogenase Troponin T C-Reactive Protein Total Protein Albumin Prealbumin Triglycerides Cholesterol LDL Cholesterol Direct HDL Cholesterol PTH Intact Urine pH Urine WBC (Auto) Urine Creatinine Urine Total Protein Fluid Total Protein Vancomycin Trough Rheumatoid Factor Complement C4 Miscellaneous Test Crossmatch 01/23/17 01/23/17 01/23/17 06:10 17:27 23:44 WBC RBC Hgb Hct MCV MCH MCHC RDW Plt Count Lymph % (Auto) [place] % (Auto) Lymph # [place] # Baso # Seg Neutrophils % Seg Neuts % (Manual) Lymphocytes % (Manual) Monocytes % (Manual) Eosinophils % (Manual) Basophils % (Manual) Nucleated RBC % Seg Neutrophils # Seg Neutrophils # Man Lymphocytes # (Manual) Monocytes # (Manual) Eosinophils # (Manual) Basophils # (Manual) PT INR Fibrinogen dRVVT Confirm Interp Factor V Activity POC ABG pH POC ABG pCO2 POC ABG pO2 ABG pO2 ABG HCO3 ABG Base Excess ABG Hemoglobin Oxyhemoglobin Sodium Potassium 3.3 L Chloride Carbon Dioxide BUN 66 H Creatinine 1.3 H Glucose 109 H POC Glucose 120 H 115 H Lactic Acid Calcium Phosphorus 2.20 L D Magnesium Direct Bilirubin AST ALT Alkaline Phosphatase Lactate Dehydrogenase Troponin T C-Reactive Protein Total Protein Albumin Prealbumin Triglycerides Cholesterol LDL Cholesterol Direct HDL Cholesterol PTH Intact Urine pH Urine WBC (Auto) Urine Creatinine Urine Total Protein Fluid Total Protein Vancomycin Trough Rheumatoid Factor Complement C4 Miscellaneous Test Crossmatch 01/24/17 01/24/17 01/24/17 05:19 05:50 12:19 WBC RBC Hgb Hct MCV MCH MCHC RDW Plt Count Lymph % (Auto) [place] % (Auto) Lymph # [place] # Baso # Seg Neutrophils % Seg Neuts % (Manual) Lymphocytes % (Manual) Monocytes % (Manual) Eosinophils % (Manual) Basophils % (Manual) Nucleated RBC % Seg Neutrophils # Seg Neutrophils # Man Lymphocytes # (Manual) Monocytes # (Manual) Eosinophils # (Manual) Basophils # (Manual) PT INR Fibrinogen dRVVT Confirm Interp Factor V Activity POC ABG pH POC ABG pCO2 POC ABG pO2 ABG pO2 ABG HCO3 ABG Base Excess ABG Hemoglobin Oxyhemoglobin Sodium Potassium Chloride Carbon Dioxide BUN 47 H Creatinine Glucose 117 H POC Glucose 126 H 119 H Lactic Acid Calcium Phosphorus 2.30 L Magnesium 1.60 L Direct Bilirubin AST ALT Alkaline Phosphatase Lactate Dehydrogenase Troponin T C-Reactive Protein Total Protein Albumin Prealbumin Triglycerides Cholesterol LDL Cholesterol Direct HDL Cholesterol PTH Intact Urine pH Urine WBC (Auto) Urine Creatinine Urine Total Protein Fluid Total Protein Vancomycin Trough Rheumatoid Factor Complement C4 Miscellaneous Test Crossmatch 01/24/17 01/25/17 01/25/17 17:08 00:37 04:00 WBC RBC Hgb Hct MCV MCH MCHC RDW Plt Count Lymph % (Auto) [place] % (Auto) Lymph # [place] # Baso # Seg Neutrophils % Seg Neuts % (Manual) Lymphocytes % (Manual) Monocytes % (Manual) Eosinophils % (Manual) Basophils % (Manual) Nucleated RBC % Seg Neutrophils # Seg Neutrophils # Man Lymphocytes # (Manual) Monocytes # (Manual) Eosinophils # (Manual) Basophils # (Manual) PT INR Fibrinogen dRVVT Confirm Interp Factor V Activity POC ABG pH POC ABG pCO2 POC ABG pO2 ABG pO2 ABG HCO3 ABG Base Excess ABG Hemoglobin Oxyhemoglobin Sodium Potassium Chloride Carbon Dioxide BUN 72 H Creatinine 1.3 H Glucose POC Glucose 127 H 110 H Lactic Acid Calcium Phosphorus Magnesium Direct Bilirubin AST ALT Alkaline Phosphatase Lactate Dehydrogenase Troponin T C-Reactive Protein Total Protein Albumin Prealbumin Triglycerides Cholesterol LDL Cholesterol Direct HDL Cholesterol PTH Intact Urine pH Urine WBC (Auto) Urine Creatinine Urine Total Protein Fluid Total Protein Vancomycin Trough Rheumatoid Factor Complement C4 Miscellaneous Test Crossmatch 01/25/17 01/25/17 01/25/17 04:00 11:15 13:05 WBC RBC 2.49 L Hgb 6.7 L Hct 20.9 L MCV MCH 27 L MCHC RDW 18.8 H Plt Count Lymph % (Auto) [place] % (Auto) 10.1 H Lymph # [place] # 1.0 H Baso # Seg Neutrophils % Seg Neuts % (Manual) Lymphocytes % (Manual) Monocytes % (Manual) Eosinophils % (Manual) Basophils % (Manual) Nucleated RBC % Seg Neutrophils # Seg Neutrophils # Man Lymphocytes # (Manual) Monocytes # (Manual) Eosinophils # (Manual) Basophils # (Manual) PT INR Fibrinogen dRVVT Confirm Interp Factor V Activity POC ABG pH POC ABG pCO2 POC ABG pO2 ABG pO2 ABG HCO3 ABG Base Excess ABG Hemoglobin Oxyhemoglobin Sodium Potassium Chloride Carbon Dioxide BUN Creatinine Glucose POC Glucose 128 H Lactic Acid Calcium Phosphorus Magnesium Direct Bilirubin AST ALT Alkaline Phosphatase Lactate Dehydrogenase Troponin T C-Reactive Protein Total Protein Albumin Prealbumin Triglycerides Cholesterol LDL Cholesterol Direct HDL Cholesterol PTH Intact Urine pH Urine WBC (Auto) Urine Creatinine Urine Total Protein Fluid Total Protein Vancomycin Trough Rheumatoid Factor Complement C4 Miscellaneous Test Crossmatch See Detail 01/25/17 01/25/17 01/26/17 18:02 23:07 01:20 WBC RBC Hgb Hct MCV MCH MCHC RDW Plt Count Lymph % (Auto) [place] % (Auto) Lymph # [place] # Baso # Seg Neutrophils % Seg Neuts % (Manual) Lymphocytes % (Manual) Monocytes % (Manual) Eosinophils % (Manual) Basophils % (Manual) Nucleated RBC % Seg Neutrophils # Seg Neutrophils # Man Lymphocytes # (Manual) Monocytes # (Manual) Eosinophils # (Manual) Basophils # (Manual) PT INR Fibrinogen dRVVT Confirm Interp Factor V Activity POC ABG pH POC ABG pCO2 POC ABG pO2 ABG pO2 ABG HCO3 ABG Base Excess ABG Hemoglobin Oxyhemoglobin Sodium Potassium Chloride Carbon Dioxide BUN Creatinine Glucose POC Glucose 120 H 123 H 112 H Lactic Acid Calcium Phosphorus Magnesium Direct Bilirubin AST ALT Alkaline Phosphatase Lactate Dehydrogenase Troponin T C-Reactive Protein Total Protein Albumin Prealbumin Triglycerides Cholesterol LDL Cholesterol Direct HDL Cholesterol PTH Intact Urine pH Urine WBC (Auto) Urine Creatinine Urine Total Protein Fluid Total Protein Vancomycin Trough Rheumatoid Factor Complement C4 Miscellaneous Test Crossmatch 01/26/17 01/26/17 01/26/17 04:20 04:20 11:23 WBC 13.1 H RBC 3.28 L Hgb 9.0 L Hct 26.9 L D MCV MCH 27 L MCHC RDW 17.2 H Plt Count Lymph % (Auto) [place] % (Auto) 9.0 H Lymph # [place] # 1.2 H Baso # Seg Neutrophils % 73.1 H Seg Neuts % (Manual) Lymphocytes % (Manual) Monocytes % (Manual) Eosinophils % (Manual) Basophils % (Manual) Nucleated RBC % Seg Neutrophils # 9.6 H Seg Neutrophils # Man Lymphocytes # (Manual) Monocytes # (Manual) Eosinophils # (Manual) Basophils # (Manual) PT INR Fibrinogen dRVVT Confirm Interp Factor V Activity POC ABG pH POC ABG pCO2 POC ABG pO2 ABG pO2 ABG HCO3 ABG Base Excess ABG Hemoglobin Oxyhemoglobin Sodium Potassium Chloride Carbon Dioxide BUN 51 H Creatinine Glucose 117 H POC Glucose 125 H Lactic Acid Calcium Phosphorus Magnesium Direct Bilirubin AST ALT Alkaline Phosphatase Lactate Dehydrogenase Troponin T C-Reactive Protein Total Protein Albumin Prealbumin Triglycerides Cholesterol LDL Cholesterol Direct HDL Cholesterol PTH Intact Urine pH Urine WBC (Auto) Urine Creatinine Urine Total Protein Fluid Total Protein Vancomycin Trough Rheumatoid Factor Complement C4 Miscellaneous Test Crossmatch 01/26/17 01/27/17 01/27/17 17:11 00:30 04:00 WBC RBC Hgb Hct MCV MCH MCHC RDW Plt Count Lymph % (Auto) [place] % (Auto) Lymph # [place] # Baso # Seg Neutrophils % Seg Neuts % (Manual) Lymphocytes % (Manual) Monocytes % (Manual) Eosinophils % (Manual) Basophils % (Manual) Nucleated RBC % Seg Neutrophils # Seg Neutrophils # Man Lymphocytes # (Manual) Monocytes # (Manual) Eosinophils # (Manual) Basophils # (Manual) PT INR Fibrinogen dRVVT Confirm Interp Factor V Activity POC ABG pH POC ABG pCO2 POC ABG pO2 ABG pO2 ABG HCO3 ABG Base Excess ABG Hemoglobin Oxyhemoglobin Sodium Potassium Chloride 97.7 L Carbon Dioxide 21 L BUN 79 H Creatinine 1.7 H D Glucose 112 H POC Glucose 133 H 135 H Lactic Acid Calcium Phosphorus 5.00 H D Magnesium Direct Bilirubin AST ALT Alkaline Phosphatase Lactate Dehydrogenase Troponin T C-Reactive Protein Total Protein Albumin Prealbumin Triglycerides Cholesterol LDL Cholesterol Direct HDL Cholesterol PTH Intact Urine pH Urine WBC (Auto) Urine Creatinine Urine Total Protein Fluid Total Protein Vancomycin Trough Rheumatoid Factor Complement C4 Miscellaneous Test Crossmatch 01/27/17 01/27/17 01/27/17 05:12 12:18 17:25 WBC RBC Hgb Hct MCV MCH MCHC RDW Plt Count Lymph % (Auto) [place] % (Auto) Lymph # [place] # Baso # Seg Neutrophils % Seg Neuts % (Manual) Lymphocytes % (Manual) Monocytes % (Manual) Eosinophils % (Manual) Basophils % (Manual) Nucleated RBC % Seg Neutrophils # Seg Neutrophils # Man Lymphocytes # (Manual) Monocytes # (Manual) Eosinophils # (Manual) Basophils # (Manual) PT INR Fibrinogen dRVVT Confirm Interp Factor V Activity POC ABG pH POC ABG pCO2 POC ABG pO2 ABG pO2 ABG HCO3 ABG Base Excess ABG Hemoglobin Oxyhemoglobin Sodium Potassium Chloride Carbon Dioxide BUN Creatinine Glucose POC Glucose 116 H 153 H 152 H Lactic Acid Calcium Phosphorus Magnesium Direct Bilirubin AST ALT Alkaline Phosphatase Lactate Dehydrogenase Troponin T C-Reactive Protein Total Protein Albumin Prealbumin Triglycerides Cholesterol LDL Cholesterol Direct HDL Cholesterol PTH Intact Urine pH Urine WBC (Auto) Urine Creatinine Urine Total Protein Fluid Total Protein Vancomycin Trough Rheumatoid Factor Complement C4 Miscellaneous Test Crossmatch 01/27/17 01/28/17 01/28/17 23:42 04:00 04:00 WBC 14.4 H RBC 2.82 L Hgb 7.4 L Hct 23.5 L MCV MCH 26 L MCHC RDW 17.6 H Plt Count Lymph % (Auto) 10.2 L [place] % (Auto) 11.0 H Lymph # [place] # 1.6 H Baso # Seg Neutrophils % 78.0 H Seg Neuts % (Manual) Lymphocytes % (Manual) Monocytes % (Manual) Eosinophils % (Manual) Basophils % (Manual) Nucleated RBC % Seg Neutrophils # 11.3 H Seg Neutrophils # Man Lymphocytes # (Manual) Monocytes # (Manual) Eosinophils # (Manual) Basophils # (Manual) PT INR Fibrinogen dRVVT Confirm Interp Factor V Activity POC ABG pH POC ABG pCO2 POC ABG pO2 ABG pO2 ABG HCO3 ABG Base Excess ABG Hemoglobin Oxyhemoglobin Sodium Potassium Chloride Carbon Dioxide BUN 55 H Creatinine 1.3 H Glucose 114 H POC Glucose 121 H Lactic Acid Calcium Phosphorus Magnesium Direct Bilirubin AST ALT Alkaline Phosphatase Lactate Dehydrogenase Troponin T C-Reactive Protein Total Protein Albumin 1.4 L Prealbumin Triglycerides Cholesterol LDL Cholesterol Direct HDL Cholesterol PTH Intact Urine pH Urine WBC (Auto) Urine Creatinine Urine Total Protein Fluid Total Protein Vancomycin Trough Rheumatoid Factor Complement C4 Miscellaneous Test Crossmatch 01/28/17 01/28/17 01/29/17 04:59 12:30 00:02 WBC RBC Hgb Hct MCV MCH MCHC RDW Plt Count Lymph % (Auto) [place] % (Auto) Lymph # [place] # Baso # Seg Neutrophils % Seg Neuts % (Manual) Lymphocytes % (Manual) Monocytes % (Manual) Eosinophils % (Manual) Basophils % (Manual) Nucleated RBC % Seg Neutrophils # Seg Neutrophils # Man Lymphocytes # (Manual) Monocytes # (Manual) Eosinophils # (Manual) Basophils # (Manual) PT INR Fibrinogen dRVVT Confirm Interp Factor V Activity POC ABG pH POC ABG pCO2 POC ABG pO2 ABG pO2 ABG HCO3 ABG Base Excess ABG Hemoglobin Oxyhemoglobin Sodium Potassium Chloride Carbon Dioxide BUN Creatinine Glucose POC Glucose 126 H 119 H 138 H Lactic Acid Calcium Phosphorus Magnesium Direct Bilirubin AST ALT Alkaline Phosphatase Lactate Dehydrogenase Troponin T C-Reactive Protein Total Protein Albumin Prealbumin Triglycerides Cholesterol LDL Cholesterol Direct HDL Cholesterol PTH Intact Urine pH Urine WBC (Auto) Urine Creatinine Urine Total Protein Fluid Total Protein Vancomycin Trough Rheumatoid Factor Complement C4 Miscellaneous Test Crossmatch 01/29/17 01/29/17 01/29/17 04:58 06:15 11:35 WBC RBC Hgb Hct MCV MCH MCHC RDW Plt Count Lymph % (Auto) [place] % (Auto) Lymph # [place] # Baso # Seg Neutrophils % Seg Neuts % (Manual) Lymphocytes % (Manual) Monocytes % (Manual) Eosinophils % (Manual) Basophils % (Manual) Nucleated RBC % Seg Neutrophils # Seg Neutrophils # Man Lymphocytes # (Manual) Monocytes # (Manual) Eosinophils # (Manual) Basophils # (Manual) PT INR Fibrinogen dRVVT Confirm Interp Factor V Activity POC ABG pH POC ABG pCO2 POC ABG pO2 ABG pO2 ABG HCO3 ABG Base Excess ABG Hemoglobin Oxyhemoglobin Sodium Potassium Chloride Carbon Dioxide BUN 85 H Creatinine 1.7 H Glucose 105 H POC Glucose 114 H 110 H Lactic Acid Calcium Phosphorus Magnesium 2.40 H Direct Bilirubin AST ALT Alkaline Phosphatase Lactate Dehydrogenase Troponin T C-Reactive Protein Total Protein Albumin Prealbumin Triglycerides Cholesterol LDL Cholesterol Direct HDL Cholesterol PTH Intact Urine pH Urine WBC (Auto) Urine Creatinine Urine Total Protein Fluid Total Protein Vancomycin Trough Rheumatoid Factor Complement C4 Miscellaneous Test Crossmatch 01/29/17 01/29/17 01/30/17 18:24 23:41 05:12 WBC RBC Hgb Hct MCV MCH MCHC RDW Plt Count Lymph % (Auto) [place] % (Auto) Lymph # [place] # Baso # Seg Neutrophils % Seg Neuts % (Manual) Lymphocytes % (Manual) Monocytes % (Manual) Eosinophils % (Manual) Basophils % (Manual) Nucleated RBC % Seg Neutrophils # Seg Neutrophils # Man Lymphocytes # (Manual) Monocytes # (Manual) Eosinophils # (Manual) Basophils # (Manual) PT INR Fibrinogen dRVVT Confirm Interp Factor V Activity POC ABG pH POC ABG pCO2 POC ABG pO2 ABG pO2 ABG HCO3 ABG Base Excess ABG Hemoglobin Oxyhemoglobin Sodium Potassium Chloride Carbon Dioxide BUN Creatinine Glucose POC Glucose 109 H 134 H 109 H Lactic Acid Calcium Phosphorus Magnesium Direct Bilirubin AST ALT Alkaline Phosphatase Lactate Dehydrogenase Troponin T C-Reactive Protein Total Protein Albumin Prealbumin Triglycerides Cholesterol LDL Cholesterol Direct HDL Cholesterol PTH Intact Urine pH Urine WBC (Auto) Urine Creatinine Urine Total Protein Fluid Total Protein Vancomycin Trough Rheumatoid Factor Complement C4 Miscellaneous Test Crossmatch 01/30/17 01/30/17 01/30/17 11:26 17:43 23:39 WBC RBC Hgb Hct MCV MCH MCHC RDW Plt Count Lymph % (Auto) [place] % (Auto) Lymph # [place] # Baso # Seg Neutrophils % Seg Neuts % (Manual) Lymphocytes % (Manual) Monocytes % (Manual) Eosinophils % (Manual) Basophils % (Manual) Nucleated RBC % Seg Neutrophils # Seg Neutrophils # Man Lymphocytes # (Manual) Monocytes # (Manual) Eosinophils # (Manual) Basophils # (Manual) PT INR Fibrinogen dRVVT Confirm Interp Factor V Activity POC ABG pH POC ABG pCO2 POC ABG pO2 ABG pO2 ABG HCO3 ABG Base Excess ABG Hemoglobin Oxyhemoglobin Sodium Potassium Chloride Carbon Dioxide BUN Creatinine Glucose POC Glucose 135 H 143 H 122 H Lactic Acid Calcium Phosphorus Magnesium Direct Bilirubin AST ALT Alkaline Phosphatase Lactate Dehydrogenase Troponin T C-Reactive Protein Total Protein Albumin Prealbumin Triglycerides Cholesterol LDL Cholesterol Direct HDL Cholesterol PTH Intact Urine pH Urine WBC (Auto) Urine Creatinine Urine Total Protein Fluid Total Protein Vancomycin Trough Rheumatoid Factor Complement C4 Miscellaneous Test Crossmatch 01/31/17 01/31/17 01/31/17 04:00 05:40 11:12 WBC RBC Hgb Hct MCV MCH MCHC RDW Plt Count Lymph % (Auto) [place] % (Auto) Lymph # [place] # Baso # Seg Neutrophils % Seg Neuts % (Manual) Lymphocytes % (Manual) Monocytes % (Manual) Eosinophils % (Manual) Basophils % (Manual) Nucleated RBC % Seg Neutrophils # Seg Neutrophils # Man Lymphocytes # (Manual) Monocytes # (Manual) Eosinophils # (Manual) Basophils # (Manual) PT INR Fibrinogen dRVVT Confirm Interp Factor V Activity POC ABG pH POC ABG pCO2 POC ABG pO2 ABG pO2 ABG HCO3 ABG Base Excess ABG Hemoglobin Oxyhemoglobin Sodium Potassium Chloride Carbon Dioxide BUN 78 H Creatinine 1.5 H Glucose 108 H POC Glucose 123 H Lactic Acid Calcium Phosphorus Magnesium Direct Bilirubin AST ALT Alkaline Phosphatase Lactate Dehydrogenase Troponin T C-Reactive Protein 8.10 H Total Protein Albumin Prealbumin Triglycerides Cholesterol LDL Cholesterol Direct HDL Cholesterol PTH Intact Urine pH Urine WBC (Auto) Urine Creatinine Urine Total Protein Fluid Total Protein Vancomycin Trough Rheumatoid Factor Complement C4 Miscellaneous Test Crossmatch 01/31/17 01/31/17 01/31/17 11:16 17:45 17:50 WBC RBC Hgb Hct MCV MCH MCHC RDW Plt Count Lymph % (Auto) [place] % (Auto) Lymph # [place] # Baso # Seg Neutrophils % Seg Neuts % (Manual) Lymphocytes % (Manual) Monocytes % (Manual) Eosinophils % (Manual) Basophils % (Manual) Nucleated RBC % Seg Neutrophils # Seg Neutrophils # Man Lymphocytes # (Manual) Monocytes # (Manual) Eosinophils # (Manual) Basophils # (Manual) PT INR Fibrinogen dRVVT Confirm Interp Factor V Activity POC ABG pH POC ABG pCO2 POC ABG pO2 ABG pO2 ABG HCO3 ABG Base Excess ABG Hemoglobin Oxyhemoglobin Sodium Potassium Chloride Carbon Dioxide BUN Creatinine Glucose POC Glucose 119 H 111 H Lactic Acid Calcium Phosphorus Magnesium Direct Bilirubin AST ALT Alkaline Phosphatase Lactate Dehydrogenase Troponin T C-Reactive Protein Total Protein Albumin Prealbumin Triglycerides Cholesterol LDL Cholesterol Direct HDL Cholesterol PTH Intact 6.76 L Urine pH Urine WBC (Auto) Urine Creatinine Urine Total Protein Fluid Total Protein Vancomycin Trough Rheumatoid Factor Complement C4 Miscellaneous Test Crossmatch 01/31/17 02/01/17 02/01/17 23:19 05:42 09:24 WBC RBC Hgb Hct MCV MCH MCHC RDW Plt Count Lymph % (Auto) [place] % (Auto) Lymph # [place] # Baso # Seg Neutrophils % Seg Neuts % (Manual) Lymphocytes % (Manual) Monocytes % (Manual) Eosinophils % (Manual) Basophils % (Manual) Nucleated RBC % Seg Neutrophils # Seg Neutrophils # Man Lymphocytes # (Manual) Monocytes # (Manual) Eosinophils # (Manual) Basophils # (Manual) PT INR Fibrinogen dRVVT Confirm Interp Factor V Activity POC ABG pH POC ABG pCO2 POC ABG pO2 ABG pO2 ABG HCO3 ABG Base Excess ABG Hemoglobin Oxyhemoglobin Sodium Potassium Chloride Carbon Dioxide BUN Creatinine Glucose POC Glucose 118 H 122 H Lactic Acid Calcium Phosphorus Magnesium 2.60 H Direct Bilirubin AST ALT Alkaline Phosphatase Lactate Dehydrogenase Troponin T C-Reactive Protein Total Protein Albumin Prealbumin Triglycerides Cholesterol LDL Cholesterol Direct HDL Cholesterol PTH Intact Urine pH Urine WBC (Auto) Urine Creatinine Urine Total Protein Fluid Total Protein Vancomycin Trough Rheumatoid Factor Complement C4 Miscellaneous Test Crossmatch 02/01/17 02/01/17 02/02/17 09:24 12:15 07:40 WBC RBC Hgb Hct MCV MCH MCHC RDW Plt Count Lymph % (Auto) [place] % (Auto) Lymph # [place] # Baso # Seg Neutrophils % Seg Neuts % (Manual) Lymphocytes % (Manual) Monocytes % (Manual) Eosinophils % (Manual) Basophils % (Manual) Nucleated RBC % Seg Neutrophils # Seg Neutrophils # Man Lymphocytes # (Manual) Monocytes # (Manual) Eosinophils # (Manual) Basophils # (Manual) PT INR Fibrinogen dRVVT Confirm Interp Factor V Activity POC ABG pH POC ABG pCO2 POC ABG pO2 ABG pO2 ABG HCO3 ABG Base Excess ABG Hemoglobin Oxyhemoglobin Sodium Potassium Chloride Carbon Dioxide BUN 102 H 72 H Creatinine 1.9 H 1.5 H Glucose 120 H POC Glucose 156 H Lactic Acid Calcium Phosphorus Magnesium Direct Bilirubin AST ALT Alkaline Phosphatase Lactate Dehydrogenase Troponin T C-Reactive Protein Total Protein Albumin Prealbumin Triglycerides Cholesterol LDL Cholesterol Direct HDL Cholesterol PTH Intact Urine pH Urine WBC (Auto) Urine Creatinine Urine Total Protein Fluid Total Protein Vancomycin Trough Rheumatoid Factor Complement C4 Miscellaneous Test Crossmatch 02/02/17 02/02/17 02/03/17 10:16 12:11 00:08 WBC 12.0 H RBC 3.08 L Hgb 8.3 L Hct 25.6 L MCV MCH 27 L MCHC RDW 18.2 H Plt Count Lymph % (Auto) [place] % (Auto) Lymph # [place] # Baso # Seg Neutrophils % 78.4 H Seg Neuts % (Manual) Lymphocytes % (Manual) Monocytes % (Manual) Eosinophils % (Manual) Basophils % (Manual) Nucleated RBC % Seg Neutrophils # 9.4 H Seg Neutrophils # Man Lymphocytes # (Manual) Monocytes # (Manual) Eosinophils # (Manual) Basophils # (Manual) PT INR Fibrinogen dRVVT Confirm Interp Factor V Activity POC ABG pH POC ABG pCO2 POC ABG pO2 ABG pO2 ABG HCO3 ABG Base Excess ABG Hemoglobin Oxyhemoglobin Sodium Potassium Chloride Carbon Dioxide BUN Creatinine Glucose POC Glucose 110 H 120 H Lactic Acid Calcium Phosphorus Magnesium Direct Bilirubin AST ALT Alkaline Phosphatase Lactate Dehydrogenase Troponin T C-Reactive Protein Total Protein Albumin Prealbumin Triglycerides Cholesterol LDL Cholesterol Direct HDL Cholesterol PTH Intact Urine pH Urine WBC (Auto) Urine Creatinine Urine Total Protein Fluid Total Protein Vancomycin Trough Rheumatoid Factor Complement C4 Miscellaneous Test Crossmatch 02/03/17 02/03/17 02/03/17 05:41 07:38 11:31 WBC RBC Hgb Hct MCV MCH MCHC RDW Plt Count Lymph % (Auto) [place] % (Auto) Lymph # [place] # Baso # Seg Neutrophils % Seg Neuts % (Manual) Lymphocytes % (Manual) Monocytes % (Manual) Eosinophils % (Manual) Basophils % (Manual) Nucleated RBC % Seg Neutrophils # Seg Neutrophils # Man Lymphocytes # (Manual) Monocytes # (Manual) Eosinophils # (Manual) Basophils # (Manual) PT INR Fibrinogen dRVVT Confirm Interp Factor V Activity POC ABG pH POC ABG pCO2 POC ABG pO2 ABG pO2 ABG HCO3 ABG Base Excess ABG Hemoglobin Oxyhemoglobin Sodium 134 L Potassium Chloride Carbon Dioxide 21 L BUN 91 H Creatinine 1.9 H Glucose 110 H POC Glucose 119 H 119 H Lactic Acid Calcium 10.3 H Phosphorus Magnesium Direct Bilirubin AST ALT Alkaline Phosphatase Lactate Dehydrogenase Troponin T C-Reactive Protein Total Protein Albumin Prealbumin Triglycerides Cholesterol LDL Cholesterol Direct HDL Cholesterol PTH Intact Urine pH Urine WBC (Auto) Urine Creatinine Urine Total Protein Fluid Total Protein Vancomycin Trough Rheumatoid Factor Complement C4 Miscellaneous Test Crossmatch 02/03/17 02/04/17 02/04/17 17:13 04:00 05:18 WBC RBC Hgb Hct MCV MCH MCHC RDW Plt Count Lymph % (Auto) [place] % (Auto) Lymph # [place] # Baso # Seg Neutrophils % Seg Neuts % (Manual) Lymphocytes % (Manual) Monocytes % (Manual) Eosinophils % (Manual) Basophils % (Manual) Nucleated RBC % Seg Neutrophils # Seg Neutrophils # Man Lymphocytes # (Manual) Monocytes # (Manual) Eosinophils # (Manual) Basophils # (Manual) PT INR Fibrinogen dRVVT Confirm Interp Factor V Activity POC ABG pH POC ABG pCO2 POC ABG pO2 ABG pO2 ABG HCO3 ABG Base Excess ABG Hemoglobin Oxyhemoglobin Sodium 136 L Potassium Chloride Carbon Dioxide BUN 58 H Creatinine 1.3 H Glucose 103 H POC Glucose 133 H 132 H Lactic Acid Calcium Phosphorus 2.00 L D Magnesium 1.60 L Direct Bilirubin AST ALT Alkaline Phosphatase Lactate Dehydrogenase Troponin T C-Reactive Protein Total Protein Albumin Prealbumin Triglycerides Cholesterol LDL Cholesterol Direct HDL Cholesterol PTH Intact Urine pH Urine WBC (Auto) Urine Creatinine Urine Total Protein Fluid Total Protein Vancomycin Trough Rheumatoid Factor Complement C4 Miscellaneous Test Crossmatch 02/05/17 02/05/17 02/05/17 00:01 04:00 06:42 WBC RBC Hgb Hct MCV MCH MCHC RDW Plt Count Lymph % (Auto) [place] % (Auto) Lymph # [place] # Baso # Seg Neutrophils % Seg Neuts % (Manual) Lymphocytes % (Manual) Monocytes % (Manual) Eosinophils % (Manual) Basophils % (Manual) Nucleated RBC % Seg Neutrophils # Seg Neutrophils # Man Lymphocytes # (Manual) Monocytes # (Manual) Eosinophils # (Manual) Basophils # (Manual) PT INR Fibrinogen dRVVT Confirm Interp Factor V Activity POC ABG pH POC ABG pCO2 POC ABG pO2 ABG pO2 ABG HCO3 ABG Base Excess ABG Hemoglobin Oxyhemoglobin Sodium Potassium Chloride Carbon Dioxide BUN 83 H Creatinine 1.8 H Glucose POC Glucose 119 H 110 H Lactic Acid Calcium 10.7 H Phosphorus Magnesium Direct Bilirubin AST ALT Alkaline Phosphatase Lactate Dehydrogenase Troponin T C-Reactive Protein Total Protein Albumin Prealbumin Triglycerides Cholesterol LDL Cholesterol Direct HDL Cholesterol PTH Intact Urine pH Urine WBC (Auto) Urine Creatinine Urine Total Protein Fluid Total Protein Vancomycin Trough Rheumatoid Factor Complement C4 Miscellaneous Test Crossmatch 02/05/17 02/05/17 02/05/17 09:59 11:47 23:44 WBC RBC 2.69 L Hgb 7.2 L Hct 22.5 L MCV MCH 27 L MCHC RDW 18.6 H Plt Count Lymph % (Auto) [place] % (Auto) 9.2 H Lymph # [place] # 0.9 H Baso # Seg Neutrophils % Seg Neuts % (Manual) Lymphocytes % (Manual) Monocytes % (Manual) Eosinophils % (Manual) Basophils % (Manual) Nucleated RBC % Seg Neutrophils # Seg Neutrophils # Man Lymphocytes # (Manual) Monocytes # (Manual) Eosinophils # (Manual) Basophils # (Manual) PT INR Fibrinogen dRVVT Confirm Interp Factor V Activity POC ABG pH POC ABG pCO2 POC ABG pO2 ABG pO2 ABG HCO3 ABG Base Excess ABG Hemoglobin Oxyhemoglobin Sodium Potassium Chloride Carbon Dioxide BUN Creatinine Glucose POC Glucose 130 H 123 H Lactic Acid Calcium Phosphorus Magnesium Direct Bilirubin AST ALT Alkaline Phosphatase Lactate Dehydrogenase Troponin T C-Reactive Protein Total Protein Albumin Prealbumin Triglycerides Cholesterol LDL Cholesterol Direct HDL Cholesterol PTH Intact Urine pH Urine WBC (Auto) Urine Creatinine Urine Total Protein Fluid Total Protein Vancomycin Trough Rheumatoid Factor Complement C4 Miscellaneous Test Crossmatch 02/06/17 02/06/17 02/06/17 04:45 05:58 12:01 WBC RBC Hgb Hct MCV MCH MCHC RDW Plt Count Lymph % (Auto) [place] % (Auto) Lymph # [place] # Baso # Seg Neutrophils % Seg Neuts % (Manual) Lymphocytes % (Manual) Monocytes % (Manual) Eosinophils % (Manual) Basophils % (Manual) Nucleated RBC % Seg Neutrophils # Seg Neutrophils # Man Lymphocytes # (Manual) Monocytes # (Manual) Eosinophils # (Manual) Basophils # (Manual) PT INR Fibrinogen dRVVT Confirm Interp Factor V Activity POC ABG pH POC ABG pCO2 POC ABG pO2 ABG pO2 ABG HCO3 ABG Base Excess ABG Hemoglobin Oxyhemoglobin Sodium Potassium Chloride Carbon Dioxide BUN 101 H Creatinine 2.0 H Glucose 102 H POC Glucose 115 H 132 H Lactic Acid Calcium 10.6 H Phosphorus Magnesium Direct Bilirubin AST ALT Alkaline Phosphatase 199 H Lactate Dehydrogenase Troponin T C-Reactive Protein Total Protein Albumin 1.4 L Prealbumin Triglycerides Cholesterol LDL Cholesterol Direct HDL Cholesterol PTH Intact Urine pH Urine WBC (Auto) Urine Creatinine Urine Total Protein Fluid Total Protein Vancomycin Trough Rheumatoid Factor Complement C4 Miscellaneous Test Crossmatch 02/06/17 02/06/17 02/07/17 17:41 23:32 05:04 WBC RBC Hgb Hct MCV MCH MCHC RDW Plt Count Lymph % (Auto) [place] % (Auto) Lymph # [place] # Baso # Seg Neutrophils % Seg Neuts % (Manual) Lymphocytes % (Manual) Monocytes % (Manual) Eosinophils % (Manual) Basophils % (Manual) Nucleated RBC % Seg Neutrophils # Seg Neutrophils # Man Lymphocytes # (Manual) Monocytes # (Manual) Eosinophils # (Manual) Basophils # (Manual) PT INR Fibrinogen dRVVT Confirm Interp Factor V Activity POC ABG pH POC ABG pCO2 POC ABG pO2 ABG pO2 ABG HCO3 ABG Base Excess ABG Hemoglobin Oxyhemoglobin Sodium Potassium Chloride Carbon Dioxide BUN Creatinine Glucose POC Glucose 134 H 128 H 119 H Lactic Acid Calcium Phosphorus Magnesium Direct Bilirubin AST ALT Alkaline Phosphatase Lactate Dehydrogenase Troponin T C-Reactive Protein Total Protein Albumin Prealbumin Triglycerides Cholesterol LDL Cholesterol Direct HDL Cholesterol PTH Intact Urine pH Urine WBC (Auto) Urine Creatinine Urine Total Protein Fluid Total Protein Vancomycin Trough Rheumatoid Factor Complement C4 Miscellaneous Test Crossmatch 02/07/17 02/07/17 02/07/17 06:30 11:20 17:13 WBC RBC Hgb Hct MCV MCH MCHC RDW Plt Count Lymph % (Auto) [place] % (Auto) Lymph # [place] # Baso # Seg Neutrophils % Seg Neuts % (Manual) Lymphocytes % (Manual) Monocytes % (Manual) Eosinophils % (Manual) Basophils % (Manual) Nucleated RBC % Seg Neutrophils # Seg Neutrophils # Man Lymphocytes # (Manual) Monocytes # (Manual) Eosinophils # (Manual) Basophils # (Manual) PT INR Fibrinogen dRVVT Confirm Interp Factor V Activity POC ABG pH POC ABG pCO2 POC ABG pO2 ABG pO2 ABG HCO3 ABG Base Excess ABG Hemoglobin Oxyhemoglobin Sodium Potassium 3.4 L Chloride Carbon Dioxide BUN 69 H Creatinine 1.5 H Glucose 105 H POC Glucose 117 H 110 H Lactic Acid Calcium Phosphorus Magnesium 1.50 L Direct Bilirubin AST ALT Alkaline Phosphatase Lactate Dehydrogenase Troponin T C-Reactive Protein Total Protein Albumin Prealbumin Triglycerides Cholesterol LDL Cholesterol Direct HDL Cholesterol PTH Intact Urine pH Urine WBC (Auto) Urine Creatinine Urine Total Protein Fluid Total Protein Vancomycin Trough Rheumatoid Factor Complement C4 Miscellaneous Test Crossmatch 02/07/17 02/08/17 02/08/17 20:47 04:00 11:43 WBC RBC Hgb Hct MCV MCH MCHC RDW Plt Count Lymph % (Auto) [place] % (Auto) Lymph # [place] # Baso # Seg Neutrophils % Seg Neuts % (Manual) Lymphocytes % (Manual) Monocytes % (Manual) Eosinophils % (Manual) Basophils % (Manual) Nucleated RBC % Seg Neutrophils # Seg Neutrophils # Man Lymphocytes # (Manual) Monocytes # (Manual) Eosinophils # (Manual) Basophils # (Manual) PT INR Fibrinogen dRVVT Confirm Interp Factor V Activity POC ABG pH POC ABG pCO2 POC ABG pO2 ABG pO2 ABG HCO3 ABG Base Excess ABG Hemoglobin Oxyhemoglobin Sodium Potassium Chloride Carbon Dioxide BUN 86 H Creatinine 1.7 H Glucose POC Glucose 115 H 122 H Lactic Acid Calcium Phosphorus Magnesium 1.60 L Direct Bilirubin AST ALT Alkaline Phosphatase Lactate Dehydrogenase Troponin T C-Reactive Protein Total Protein Albumin Prealbumin Triglycerides Cholesterol LDL Cholesterol Direct HDL Cholesterol PTH Intact Urine pH Urine WBC (Auto) Urine Creatinine Urine Total Protein Fluid Total Protein Vancomycin Trough Rheumatoid Factor Complement C4 Miscellaneous Test Crossmatch 02/08/17 02/09/17 02/09/17 17:36 05:44 11:30 WBC RBC Hgb Hct MCV MCH MCHC RDW Plt Count Lymph % (Auto) [place] % (Auto) Lymph # [place] # Baso # Seg Neutrophils % Seg Neuts % (Manual) Lymphocytes % (Manual) Monocytes % (Manual) Eosinophils % (Manual) Basophils % (Manual) Nucleated RBC % Seg Neutrophils # Seg Neutrophils # Man Lymphocytes # (Manual) Monocytes # (Manual) Eosinophils # (Manual) Basophils # (Manual) PT INR Fibrinogen dRVVT Confirm Interp Factor V Activity POC ABG pH POC ABG pCO2 POC ABG pO2 ABG pO2 ABG HCO3 ABG Base Excess ABG Hemoglobin Oxyhemoglobin Sodium Potassium Chloride Carbon Dioxide BUN Creatinine Glucose POC Glucose 125 H 117 H 120 H Lactic Acid Calcium Phosphorus Magnesium Direct Bilirubin AST ALT Alkaline Phosphatase Lactate Dehydrogenase Troponin T C-Reactive Protein Total Protein Albumin Prealbumin Triglycerides Cholesterol LDL Cholesterol Direct HDL Cholesterol PTH Intact Urine pH Urine WBC (Auto) Urine Creatinine Urine Total Protein Fluid Total Protein Vancomycin Trough Rheumatoid Factor Complement C4 Miscellaneous Test Crossmatch 02/09/17 02/10/17 02/10/17 23:45 05:45 05:50 WBC RBC Hgb Hct MCV MCH MCHC RDW Plt Count Lymph % (Auto) [place] % (Auto) Lymph # [place] # Baso # Seg Neutrophils % Seg Neuts % (Manual) Lymphocytes % (Manual) Monocytes % (Manual) Eosinophils % (Manual) Basophils % (Manual) Nucleated RBC % Seg Neutrophils # Seg Neutrophils # Man Lymphocytes # (Manual) Monocytes # (Manual) Eosinophils # (Manual) Basophils # (Manual) PT INR Fibrinogen dRVVT Confirm Interp Factor V Activity POC ABG pH POC ABG pCO2 POC ABG pO2 ABG pO2 ABG HCO3 ABG Base Excess ABG Hemoglobin Oxyhemoglobin Sodium Potassium Chloride Carbon Dioxide BUN 85 H Creatinine 1.8 H Glucose 109 H POC Glucose 114 H 189 H Lactic Acid Calcium Phosphorus Magnesium 2.50 H Direct Bilirubin AST ALT Alkaline Phosphatase Lactate Dehydrogenase Troponin T C-Reactive Protein Total Protein Albumin Prealbumin Triglycerides Cholesterol LDL Cholesterol Direct HDL Cholesterol PTH Intact Urine pH Urine WBC (Auto) Urine Creatinine Urine Total Protein Fluid Total Protein Vancomycin Trough Rheumatoid Factor Complement C4 Miscellaneous Test Crossmatch 02/10/17 02/10/17 02/10/17 05:51 11:55 17:42 WBC RBC Hgb Hct MCV MCH MCHC RDW Plt Count Lymph % (Auto) [place] % (Auto) Lymph # [place] # Baso # Seg Neutrophils % Seg Neuts % (Manual) Lymphocytes % (Manual) Monocytes % (Manual) Eosinophils % (Manual) Basophils % (Manual) Nucleated RBC % Seg Neutrophils # Seg Neutrophils # Man Lymphocytes # (Manual) Monocytes # (Manual) Eosinophils # (Manual) Basophils # (Manual) PT INR Fibrinogen dRVVT Confirm Interp Factor V Activity POC ABG pH POC ABG pCO2 POC ABG pO2 ABG pO2 ABG HCO3 ABG Base Excess ABG Hemoglobin Oxyhemoglobin Sodium Potassium Chloride Carbon Dioxide BUN Creatinine Glucose POC Glucose 106 H 146 H 132 H Lactic Acid Calcium Phosphorus Magnesium Direct Bilirubin AST ALT Alkaline Phosphatase Lactate Dehydrogenase Troponin T C-Reactive Protein Total Protein Albumin Prealbumin Triglycerides Cholesterol LDL Cholesterol Direct HDL Cholesterol PTH Intact Urine pH Urine WBC (Auto) Urine Creatinine Urine Total Protein Fluid Total Protein Vancomycin Trough Rheumatoid Factor Complement C4 Miscellaneous Test Crossmatch 02/10/17 02/11/17 02/11/17 23:43 04:08 05:34 WBC RBC Hgb Hct MCV MCH MCHC RDW Plt Count Lymph % (Auto) [place] % (Auto) Lymph # [place] # Baso # Seg Neutrophils % Seg Neuts % (Manual) Lymphocytes % (Manual) Monocytes % (Manual) Eosinophils % (Manual) Basophils % (Manual) Nucleated RBC % Seg Neutrophils # Seg Neutrophils # Man Lymphocytes # (Manual) Monocytes # (Manual) Eosinophils # (Manual) Basophils # (Manual) PT INR Fibrinogen dRVVT Confirm Interp Factor V Activity POC ABG pH POC ABG pCO2 POC ABG pO2 ABG pO2 ABG HCO3 ABG Base Excess ABG Hemoglobin Oxyhemoglobin Sodium 136 L Potassium Chloride Carbon Dioxide BUN 65 H Creatinine 1.7 H Glucose 105 H POC Glucose 130 H 113 H Lactic Acid Calcium Phosphorus Magnesium Direct Bilirubin AST ALT Alkaline Phosphatase Lactate Dehydrogenase Troponin T C-Reactive Protein Total Protein Albumin Prealbumin Triglycerides Cholesterol LDL Cholesterol Direct HDL Cholesterol PTH Intact Urine pH Urine WBC (Auto) Urine Creatinine Urine Total Protein Fluid Total Protein Vancomycin Trough Rheumatoid Factor Complement C4 Miscellaneous Test Crossmatch Allied health notes reviewed: RT (Has been on PS 15, no desaturations today)
[2017-02-11] MEDS ORDERED: TPN ADULT IV SCH (20:00)
[2017-02-12] MEDS: HEPARIN SUB-Q SCH ×3 (00:16→21:02)
[2017-02-12] MEDS: ROBINUL PO SCH ×3 (00:16→22:24)
[2017-02-12] MEDS: REGLAN IV SCH ×4 (00:16→21:02)
[2017-02-12] MEDS: HumuLIN R SUB-Q SCH ×4 (02:28→19:02)
[2017-02-12 08:20] LABS: Hematocrit 22.6 % (30.3-42.9); Hemoglobin 6.9 gm/dl (10.1-14.3); Mean Corpuscular HGB Conc 31 % (30-34); Mean Corpuscular Hemoglobin 26 pg (28-32); Mean Corpuscular Volume 86 fl (79-97); Platelet Count 310 K/mm3 (140-440); Red Blood Count 2.63 M/mm3 (3.65-5.03)
[2017-02-12 08:27] LABS: Red Cell Distribution Width 20.5 % (13.2-15.2)
[2017-02-12] MEDS: PROTONIX FEEDTUBE SCH (09:27)
[2017-02-12] MEDS: MAG-OX PO SCH (09:27)
[2017-02-12] MEDS ORDERED: NACL 0.9% 500 ML 500 ML IV ONE (09:47)
[2017-02-12] MEDS: DUONEB *Not for PRN Use IH SCH ×3 (09:57→19:32)
--- NOTE | 2017-02-12 11:07 | Progress Note ---
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 shift * Acute hypoxic respiratory failure * Left renal artery stenosis * Metabolic acidosis - improved * Anemia * Hyponatremia - multifactorial * tachycardia * Pleural effusion Plan: * Continue dialysis on Wednesdays and Fridays schedule for now. * Continue PRN albumin for blood pressure support * Packed RBC transfusion as needed per primary team * Patient's serum creatinine is noted to be low. However she is oliguric and remains volume overloaded. Needs to be maintained on dialysis at this time. . * Avoid nephrotoxins * Adjust meds for GFR less than 10 * No evidence of renal recovery at this time Subjective Date of service: 02/12/17 Principal diagnosis: Acute resp failure on MVS; S/P Acute CVA; Acute Encephalopathy; JUANITA Interval history: Patient remains on the ventilator. Currently on 25% FiO2. Unresponsive. Objective - Vital Signs Vital signs: Vital Signs - 12hr 02/11/17 02/11/17 02/11/17 23:21 23:30 23:33 Temperature Pulse Rate 125 H 130 H 126 H Pulse Rate [ Anterior Bilateral Throughout] Pulse Rate [ From Monitor] Respiratory 25 H 21 Rate Respiratory Rate [Anterior Bilateral Throughout] Blood Pressure 121/76 121/76 125/80 O2 Sat by Pulse 96 97 98 Oximetry O2 Sat by Pulse 98 Oximetry [ Assessment] 02/12/17 02/12/17 02/12/17 00:00 00:15 01:00 Temperature 99.2 F Pulse Rate 114 H 127 H Pulse Rate [ Anterior Bilateral Throughout] Pulse Rate [ 125 H From Monitor] Respiratory 17 25 H 23 Rate Respiratory Rate [Anterior Bilateral Throughout] Blood Pressure 125/80 109/61 O2 Sat by Pulse 100 97 98 Oximetry O2 Sat by Pulse Oximetry [ Assessment] 02/12/17 02/12/17 02/12/17 02:00 03:00 03:31 Temperature 98.8 F Pulse Rate 117 H 120 H Pulse Rate [ Anterior Bilateral Throughout] Pulse Rate [ From Monitor] Respiratory 16 22 Rate Respiratory Rate [Anterior Bilateral Throughout] Blood Pressure 105/61 100/53 O2 Sat by Pulse 100 100 Oximetry O2 Sat by Pulse Oximetry [ Assessment] 02/12/17 02/12/17 02/12/17 03:42 04:00 04:30 Temperature Pulse Rate 124 H 115 H Pulse Rate [ Anterior Bilateral Throughout] Pulse Rate [ 115 H From Monitor] Respiratory 17 17 Rate Respiratory Rate [Anterior Bilateral Throughout] Blood Pressure 103/57 103/57 O2 Sat by Pulse 100 99 97 Oximetry O2 Sat by Pulse Oximetry [ Assessment] 02/12/17 02/12/17 02/12/17 05:00 06:00 07:00 Temperature Pulse Rate 118 H 128 H 110 H Pulse Rate [ Anterior Bilateral Throughout] Pulse Rate [ From Monitor] Respiratory 16 28 H 26 H Rate Respiratory Rate [Anterior Bilateral Throughout] Blood Pressure 103/57 130/26 108/58 O2 Sat by Pulse 100 99 100 Oximetry O2 Sat by Pulse Oximetry [ Assessment] 02/12/17 02/12/17 02/12/17 08:00 09:54 10:04 Temperature 100.5 F H Pulse Rate 129 H 115 H 125 H Pulse Rate [ 120 H 125 H Anterior Bilateral Throughout] Pulse Rate [ From Monitor] Respiratory 22 24 27 H Rate Respiratory 27 H 27 H Rate [Anterior Bilateral Throughout] Blood Pressure 91/47 112/66 114/69 O2 Sat by Pulse 98 99 100 Oximetry O2 Sat by Pulse Oximetry [ Assessment] 02/12/17 10:17 Temperature Pulse Rate Pulse Rate [ Anterior Bilateral Throughout] Pulse Rate [ From Monitor] Respiratory Rate Respiratory Rate [Anterior Bilateral Throughout] Blood Pressure O2 Sat by Pulse Oximetry O2 Sat by Pulse 97 Oximetry [ Assessment] - General Appearance General appearance: chronically ill, intubated, frail EENT: PERRL, mucous membranes moist Neck: no JVD, no thyromegaly, other (left IJ PermCath in place) Respiratory: Present: Ronchi (bilateral rhonchi) Cardiology: regular, normal heart rate, S1S2, no murmurs Gastrointestinal: normal, normoactive bowel sounds Integumentary: other (1+ edema) - Lab 02/12/17 08:00 02/12/17 06:19 Most recent lab results ABG pH 7.450 pH Units (7.350-7.450) 12/05/16 Unknown ABG pCO2 29.6 mm Hg 12/05/16 Unknown ABG pO2 75.2 mm Hg (80.0-90.0) L 12/05/16 Unknown ABG HCO3 20.1 mmol/L (20.0-26.0) 12/05/16 Unknown ABG O2 Saturation 96.8 % (95.0-99.0) 12/05/16 Unknown Calcium 11.0 mg/dL (8.4-10.2) H 02/12/17 06:19 Phosphorus 3.50 mg/dL (2.5-4.5) D 02/12/17 06:19 Magnesium 2.10 mg/dL (1.7-2.3) 02/12/17 06:19 Urine Creatinine 19.7 mg/dL (0.1-20.0) 11/12/16 10:18 Urine Sodium 36 mEq/L 09/16/16 19:19 Urine Total Protein 16 mg/dL (5-11.8) H 09/16/16 19:19
--- NOTE | 2017-02-12 11:28 | XRay Report ---
Single view abdomen: History: Small bowel obstruction. Findings: The distal aspect of the NG tube is coiled up in the fundus of the stomach with the distal tip in the body. No obvious bowel distention is seen. Probably fluid filled bowel. Impression: Findings as detailed above.
[2017-02-12] MEDS ORDERED: PHENERGAN PO PRN (12:01)
[2017-02-12] MEDS: DURAGESIC TD SCH (12:04)
[2017-02-12] MEDS: ZOFRAN IV PRN (12:25)
[2017-02-12] MEDS: TRANSDERM-SCOP TD SCH (14:31)
--- NOTE | 2017-02-12 15:49 | Cat Scan Report ---
FINAL REPORT EXAM: CT ABDOMEN PELVIS WO CON HISTORY: BOWEL OBSTRUCTION TECHNIQUE: CT of the abdomen and pelvis performed. Gastrointestinal contrast material administered. No oral contrast was administered. Axial images and coronal and sagittal reformatted images were obtained. PRIORS: 02/12/2017 FINDINGS: There are bilateral small to moderate-sized pleural effusions, right more than left. There is a infiltrate in the right lower lobe. There is some atelectasis at the posterior left lung base. There is a large amount of free fluid in the anterior aspect of the abdomen. This is complex fluid containing extravasated gastrointestinal contrast material. Specifically this appears to be acutely extravasating on the right side of the abdomen, likely from the distal ileum. There is also a small amount of free intraperitoneal air. Within the limitations of a non-enhanced study, the visualized liver, spleen, pancreas, adrenal glands and kidneys demonstrate no significant abnormalities. There is no abdominal aortic aneurysm. There is no evidence of intestinal obstruction. The appendix is not specifically identified. There is a Herndon catheter in the bladder. IMPRESSION: There is a moderate amount of complex ascites in the anterior abdomen which contains gastrointestinal contrast material that appears to be acutely extravasating from perforated bowel on the right side, likely from the distal ileum. There is also a small amount of free air. Small to moderate bilateral pleural effusions, right larger than left. Right lower lobe area of consolidation and mild left basilar atelectasis.
--- NOTE | 2017-02-12 17:40 | Event Note ---
Date: 02/12/17 Received a call from primary service regarding CT scan results showing extravasation of contrast and free air. I had a long discussion with the power of substation superintendent for the patient, her brother Jam. After presenting the options of aggressive surgical management or comfort care, brother chose comfort care. I agree with his decision, as a aggressive surgical intervention would not, in any meaningful way, affect the course of the disease and patient would almost certainly in the pradip-operative period.
[2017-02-12] MEDS ORDERED: NACL 0.9% 500 ML 500 ML ONE (19:18)
[2017-02-12] MEDS ORDERED: TPN ADULT IV SCH (20:00)
--- NOTE | 2017-02-12 20:49 | Progress Note ---
Assessment and Plan Assessment and plan: Patient is 46-year-old woman with a history of hypertension, diabetes, asthma, hyperlipidemia, chronic kidney disease and anxiety , who was brought in by family because, she couldn't get her words out, her face was also twisted, she was admitted for acute CVA and accelerated hypertension, she had a hx of poor adherence with her medications, and uncontrolled htn. Patient's SBP on admission was noted be greater than 260. TPA was started but this was discontinued after 5 minutes because her blood pressure became uncontrolled. The TPA was not initiated again because the patient was outside the TPA window. Bowel P Status post cardiac arrest , 11/21/16 on Mechanical ventilation >96 hrs - Received CPR and was resuscitated. - Patient is on amiodarone. Fever - resolved - Patient was initially treated with Abx - s/p R thoracentesis on 11/14, 240cc of serous fluid removed, cx of fluid was negative - Stool negative for C. difficile Severe Sepsis with septic shock - Patient has episode of fever and leukocytosis -Recurrent Leukocytosis, with Meropenem restarted, due to continued sacral decubitus. Surgical wound infection/gram-negative sepsis/candidemia/peritonitis - On TPN JUANITA, ESRD - discussed with Dr Wadsworth - on HD - Cr 1.9 today Acute CVA with infarct - Neurology input appreciated - CT shows continued evolution of left MCA infarct with slight mass effect and edema, and there is no hemorrhage - PRINCE showed hyperdynamic with ef of 75%, neither clot nor septal defect seen - MRA Brain shows near complete occlusion of M2 and M3 of the left MCA - Repeat CT scan done on 09/11, shows stable findings - carotid doppler negative - Echo shows preserved systolic function but does show some left ventricular diastolic dysfunction - continue asa and statin Persistent vegetative state - This patient's needs placement at SNF - She was denied for LTACH Acute hypoxic respiratory failure requiring MV >96hrs - Status post tracheostomy, was on T piece Nosocomial acquired aspiration pneumonia/sepsis/UTI - Finished a course of antibiotics Asthma/COPD exacerbation - ON trach, mechanical ventilation >96 hrs Status Post CVA Bilateral pleural effusion, s/p right thoracentesis A. fib with RVR Diabetes type 2. Continue sliding-scale regular insulin and Accu-Cheks. Hyperlipidemia. Continue statin Nutrition - TPN Anemia requiring multiple transfusions/acute blood loss - currently stable - Check AM labs - Will transfuse if it is below 7 Sacral decubitus ulcer - Status post debridement Disposition. Very poor prognosis. Ethics consult has been placed, will await there input. Cannot reach family, multiple calls placed. Nursing staff on the look out for family and will notify physician. 02/12/17: Persistent vomiting. Patient clinically unchanged since my last visit. CT abdomen obtained, shows possible bowel perforation. I discussed with Surgeon and we individually spoke to family. Patients son and brother do not want any surgery, they will like her comfortable but no hospice and no Resuscitation efforts. Patient made DNR Per family request. Nursing staff notified. The high probability of a clinically significant, sudden or life threatening deterioration of the [neurologic, CV] system(s) required my full and direct attention, intervention and personal management. The aggregate critical care time was [35] minutes. This time is in addition to time spent performing reported procedures but includes the following: [x] Data Review and interpretation [x] Patient assessment and monitoring of vital signs [x] Documentation [x] Medication orders and management History Interval history: patient seen and examined, remains unresponsive on the ventilator. multiple bouts of vomiting with any enteral feeding. NGT to suction overnight with over a liter recovered. None from fistula sites. Hospitalist Physical - Physical exam Narrative exam: GEN: Ill appearing, trach, staring into space, not tracking either NECK: SUPPLE, trach in place, ngt in place CVS: regular currently NORMAL S1S2 LUNGS/CHEST: NORMAL CHEST EXPANSION B, GOOD AIR ENTRY B ABD: SOFT, no grimise on abdominal palpation, ostomy bags at two side by side fistula site. non draining, GBS, NO REBOUND OR GUARDING, peg tube in place EXT/SKIN: NO SIGNIFICANT EDEMA BUT WITH UNSTAGEABLE SACRAL DECUB, wound vac inplace MSK: +spontaneous non purposeful movement NEURO: on a ventilator and unresponsive despite being off sedation PSY: Comatose, - Constitutional Vitals: Temp Pulse Resp BP Pulse Ox 98.3 F 121 H 27 H 104/61 99 02/12/17 20:29 02/12/17 20:19 02/12/17 20:19 02/12/17 20:19 02/12/17 20:19 General appearance: Present: no acute distress, well-nourished Results - Labs CBC & Chem 7: 02/13/17 05:00 02/13/17 05:00 Labs: Laboratory Last Values WBC 15.4 K/mm3 (4.5-11.0) H 02/12/17 08:00 RBC 2.63 M/mm3 (3.65-5.03) L 02/12/17 08:00 Hgb 6.9 gm/dl (10.1-14.3) L 02/12/17 08:00 Hct 22.6 % (30.3-42.9) L 02/12/17 08:00 MCV 86 fl (79-97) 02/12/17 08:00 MCH 26 pg (28-32) L 02/12/17 08:00 MCHC 31 % (30-34) 02/12/17 08:00 RDW 20.5 % (13.2-15.2) H 02/12/17 08:00 Plt Count 310 K/mm3 (140-440) 02/12/17 08:00 Lymph % (Auto) 19.3 % (13.4-35.0) 02/05/17 09:59 [place] % (Auto) 9.2 % (0.0-7.3) H 02/05/17 09:59 Eos % (Auto) 1.8 % (0.0-4.3) 02/05/17 09:59 Baso % (Auto) 0.5 % (0.0-1.8) 02/05/17 09:59 Lymph # 2.0 K/mm3 (1.2-5.4) 02/05/17 09:59 [place] # 0.9 K/mm3 (0.0-0.8) H 02/05/17 09:59 Eos # 0.2 K/mm3 (0.0-0.4) 02/05/17 09:59 Baso # 0.0 K/mm3 (0.0-0.1) 02/05/17 09:59 Add Manual Diff Complete 12/19/16 05:02 Total Counted 100 12/19/16 05:02 Seg Neutrophils % 69.2 % (40.0-70.0) 02/05/17 09:59 Seg Neuts % (Manual) 64.0 % (40.0-70.0) 12/19/16 05:02 Band Neutrophils % 15.0 % 12/19/16 05:02 Lymphocytes % (Manual) 13.0 % (13.4-35.0) L 12/19/16 05:02 Reactive Lymphs % (Man) 0 % 12/19/16 05:02 Monocytes % (Manual) 7.0 % (0.0-7.3) 12/19/16 05:02 Eosinophils % (Manual) 0 % (0.0-4.3) 12/19/16 05:02 Basophils % (Manual) 1.0 % (0.0-1.8) 12/19/16 05:02 Metamyelocytes % 0 % 12/19/16 05:02 Myelocytes % 0 % 12/19/16 05:02 Promyelocytes % 0 % 12/19/16 05:02 Blast Cells % 0 % 12/19/16 05:02 Nucleated RBC % 1.0 % (0.0-0.9) H 12/19/16 05:02 Seg Neutrophils # 7.1 K/mm3 (1.8-7.7) 02/05/17 09:59 Seg Neutrophils # Man 12.9 K/mm3 (1.8-7.7) H 12/19/16 05:02 Band Neutrophils # 3.0 K/mm3 12/19/16 05:02 Lymphocytes # (Manual) 2.6 K/mm3 (1.2-5.4) 12/19/16 05:02 Abs React Lymphs (Man) 0.0 K/mm3 12/19/16 05:02 Monocytes # (Manual) 1.4 K/mm3 (0.0-0.8) H 12/19/16 05:02 Eosinophils # (Manual) 0.0 K/mm3 (0.0-0.4) 12/19/16 05:02 Basophils # (Manual) 0.2 K/mm3 (0.0-0.1) H 12/19/16 05:02 Metamyelocytes # 0.0 K/mm3 12/19/16 05:02 Myelocytes # 0.0 K/mm3 12/19/16 05:02 Promyelocytes # 0.0 K/mm3 12/19/16 05:02 Blast Cells # 0.0 K/mm3 12/19/16 05:02 Pathologist Review 09/13/16 04:00 WBC Morphology Not Reportable 12/19/16 05:02 Hypersegmented Neuts Not Reportable 12/19/16 05:02 Hyposegmented Neuts Not Reportable 12/19/16 05:02 Hypogranular Neuts Not Reportable 12/19/16 05:02 Smudge Cells Not Reportable 12/19/16 05:02 Toxic Granulation Not Reportable 12/19/16 05:02 Toxic Vacuolation Not Reportable 12/19/16 05:02 Dohle Bodies Not Reportable 12/19/16 05:02 Pelger-Huet Anomaly Not Reportable 12/19/16 05:02 Jasmina Rods Not Reportable 12/19/16 05:02 Platelet Estimate Consistent w auto 12/19/16 05:02 Clumped Platelets Not Reportable 12/19/16 05:02 Plt Clumps, EDTA Not Reportable 12/19/16 05:02 Large Platelets Not Reportable 12/19/16 05:02 Giant Platelets Not Reportable 12/19/16 05:02 Platelet Satelliting Not Reportable 12/19/16 05:02 Plt Morphology Comment Not Reportable 12/19/16 05:02 RBC Morphology Not Reportable 12/19/16 05:02 Dimorphic RBCs Not Reportable 12/19/16 05:02 Polychromasia Not Reportable 12/19/16 05:02 Hypochromasia Not Reportable 12/19/16 05:02 Poikilocytosis Not Reportable 12/19/16 05:02 Anisocytosis Not Reportable 12/19/16 05:02 Microcytosis Not Reportable 12/19/16 05:02 Macrocytosis Not Reportable 12/19/16 05:02 Spherocytes Not Reportable 12/19/16 05:02 Pappenheimer Bodies Not Reportable 12/19/16 05:02 Sickle Cells Not Reportable 12/19/16 05:02 Target Cells Few 12/19/16 05:02 Tear Drop Cells Not Reportable 12/19/16 05:02 Ovalocytes Not Reportable 12/19/16 05:02 Stomatocytes Rare 12/03/16 04:00 Helmet Cells Not Reportable 12/19/16 05:02 [place] Bodies Not Reportable 12/19/16 05:02 [place] Rings Not Reportable 12/19/16 05:02 Chuck Cells Not Reportable 12/19/16 05:02 Bite Cells Not Reportable 12/19/16 05:02 Crenated Cell Not Reportable 12/19/16 05:02 Elliptocytes Not Reportable 12/19/16 05:02 Acanthocytes (Spur) Not Reportable 12/19/16 05:02 Rouleaux Not Reportable 12/19/16 05:02 Hemoglobin C Crystals Not Reportable 12/19/16 05:02 Schistocytes Not Reportable 12/19/16 05:02 Malaria parasites Not Reportable 12/19/16 05:02 ESR > 140.0 mm/Hr (0-20) 09/08/16 11:48 Jun Bodies Not Reportable 12/19/16 05:02 Hem Pathologist Commnt No 12/19/16 05:02 PT 15.4 Sec. (12.2-14.9) H 01/13/17 15:50 INR 1.16 (0.87-1.13) H 01/13/17 15:50 APTT 33.0 Sec. (24.2-36.6) 10/09/16 03:45 Thrombin Time 16.8 Sec. (15.1-19.6) 09/03/16 00:10 Fibrinogen 750 mg/dl (211-480) H 09/08/16 11:48 Lupus Anticoagulant see below 09/12/16 09:59 LA PTT Baseline See scanned report 09/12/16 09:59 dRVVT Confirm Interp Positive (Negative) H 09/12/16 09:59 dRVVT Screen 50:50 See scanned report 09/12/16 09:59 dRVVT Mix Interpret See scanned report 09/12/16 09:59 Protein C Antigen 122 % (70-140) 09/08/16 15:35 Free Protein S 97 % normal (50-147) 09/08/16 15:35 Total Protein S 109 % (70-140) 09/08/16 15:35 Antithrombin III Ag 100 % (80-120) 09/08/16 15:35 Heparin Anti-Xa, Unfract Negative (Negative) 09/29/16 13:35 Factor V Activity 182 % (65-150) H 09/08/16 15:35 POC ABG pH 7.436 (7.35-7.45) 01/20/17 12:17 ABG pH 7.450 pH Units (7.350-7.450) 12/05/16 Unknown POC ABG pCO2 35.3 (35-45) 01/20/17 12: ABG pCO2 29.6 mm Hg 12/05/16 Unknown POC ABG pO2 70 (80-105) L 01/20/17 12: ABG pO2 75.2 mm Hg (80.0-90.0) L 12/05/16 Unknown POC ABG HCO3 23.8 01/20/17 12: ABG HCO3 20.1 mmol/L (20.0-26.0) 12/05/16 Unknown POC ABG Total CO2 25 01/20/17 12: POC ABG O2 Sat 94 01/20/17 12: ABG O2 Saturation 96.8 % (95.0-99.0) 12/05/16 Unknown ABG O2 Content 9.9 (0.0-44) 12/05/16 Unknown POC ABG Base Excess 0 01/20/17 12: ABG Base Excess -3.4 mmol/L (-2.0-3.0) L 12/05/16 Unknown ABG Hemoglobin 7.4 gm/dl (12.0-16.0) L 12/05/16 Unknown ABG Carboxyhemoglobin 1.8 % (0.0-5.0) 12/05/16 Unknown ABG Methemoglobin 0.6 % (0.0-1.5) 12/05/16 Unknown Oxyhemoglobin 94.5 % (95.0-99.0) L 12/05/16 Unknown FiO2 30 % 01/20/17 12:17 Sodium 136 mmol/L (137-145) L 02/12/17 06:19 Potassium 4.6 mmol/L (3.6-5.0) 02/12/17 06:19 Chloride 97.1 mmol/L (98-107) L 02/12/17 06:19 Carbon Dioxide 22 mmol/L (22-30) 02/12/17 06:19 Anion Gap 22 mmol/L 02/12/17 06:19 BUN 93 mg/dL (7-17) H 02/12/17 06:19 Creatinine 2.4 mg/dL (0.7-1.2) H 02/12/17 06:19 Estimated GFR 26 ml/min 02/12/17 06:19 BUN/Creatinine Ratio 39 % 02/12/17 06:19 Glucose 87 mg/dL (65-100) 02/12/17 06:19 POC Glucose 135 (70-105) H 02/12/17 18:04 Osmolality 351 Mosm/kg 09/16/16 11:47 Lactic Acid 2.30 mmol/L (0.7-2.0) H* 01/09/17 08:22 Calcium 11.0 mg/dL (8.4-10.2) H 02/12/17 06:19 Phosphorus 3.50 mg/dL (2.5-4.5) D 02/12/17 06:19 Magnesium 2.10 mg/dL (1.7-2.3) 02/12/17 06:19 Total Bilirubin 0.40 mg/dL (0.1-1.2) 02/06/17 04:45 Direct Bilirubin 0.2 mg/dL (0-0.2) 01/28/17 04:00 Indirect Bilirubin 0.3 mg/dL 01/28/17 04:00 AST 29 units/L (5-40) 02/06/17 04:45 ALT 26 units/L (7-56) 02/06/17 04:45 Alkaline Phosphatase 199 units/L (35-129) H 02/06/17 04:45 Ammonia 27.0 umol/L (25-60) 09/07/16 08:37 Lactate Dehydrogenase 170 units/L (91-180) 01/13/17 15:50 Total Creatine Kinase 121 units/L (30-135) 09/29/16 20:12 CK-MB (CK-2) < 1.0 ng/mL (0.0-4.0) 09/29/16 20:12 CK-MB (CK-2) Rel Index 0.8 (0-4) 09/29/16 20:12 Troponin T 0.204 ng/mL (0.00-0.029) H* 09/29/16 20:12 C-Reactive Protein 8.10 mg/dL (0.00-1.30) H 01/31/17 11:12 Total Protein 6.7 g/dL (6.3-8.2) 02/06/17 04:45 Albumin 1.4 g/dL (3.9-5) L 02/06/17 04:45 Albumin/Globulin Ratio 0.3 % 02/06/17 04:45 Prealbumin 0.110 g/L (0.200-0.400) L 12/29/16 05:15 Triglycerides 55 mg/dL (2-149) 02/06/17 04:45 Cholesterol 31 mg/dL (50-199) L 09/29/16 20:12 LDL Cholesterol Direct 4 mg/dL (50-130) L 09/29/16 20:12 HDL Cholesterol 3 mg/dL (40-59) L 09/29/16 20:12 Cholesterol/HDL Ratio 10.33 % 09/29/16 20:12 Angiotensin Convert Enz See scanned report 09/08/16 11:48 Renin 0.99 ng/mL/h (0.25-5.82) 10/07/16 10:56 Aldosterone <1 ng/dL () 10/07/16 10:56 Aldosterone/Renin Dir see below 10/07/16 10:56 Serotonin Release Assay See scanned report 09/29/16 13:35 TSH 1.010 mlU/mL (0.270-4.200) 09/07/16 08:37 HCG, Qual Negative (Negative) 09/03/16 00:10 PTH Intact 6.76 pg/mL (15-65) L 01/31/17 17:50 Total Cortisol 18.2 mcg/dL () 02/02/17 20:09 Urine Color Yellow (Yellow) 11/05/16 13:09 Urine Turbidity Clear (Clear) 11/05/16 13:09 Urine pH 9.0 (5.0-7.0) H 11/05/16 13:09 Ur Specific [place] 1.011 (1.003-1.030) 11/05/16 13:09 Urine Protein 100 mg/dl mg/dL (Negative) 11/05/16 13:09 Urine Glucose (UA) Neg mg/dL (Negative) 11/05/16 13:09 Urine Ketones Neg mg/dL (Negative) 11/05/16 13:09 Urine Blood Neg (Negative) 11/05/16 13:09 Urine Nitrite Neg (Negative) 11/05/16 13:09 Urine Bilirubin Neg (Negative) 11/05/16 13:09 Urine Urobilinogen < 2.0 mg/dL (<2.0) 11/05/16 13:09 Ur Leukocyte Esterase Neg (Negative) 11/05/16 13:09 Urine WBC (Auto) 4.0 /HPF (0.0-6.0) 11/05/16 13:09 Urine RBC (Auto) 1.0 /HPF (0.0-6.0) 11/05/16 13:09 U Epithel Cells (Auto) 1.0 /HPF (0-13.0) 10/07/16 18:30 Urine Bacteria (Auto) 4+ /HPF (Negative) 11/05/16 13:09 Urine WBC Clumps 2+ /HPF 09/07/16 02:47 Hyaline Casts 4 /LPF 09/07/16 02:47 Urine Mucus Few /HPF 10/07/16 18:30 Urine Yeast (Budding) 3+ /HPF 10/07/16 18:30 Urine Eosinophils None seen (None Seen) 09/07/16 16:00 Urine Total Volume 950 11/12/16 10:18 Urine Creatinine 19.7 mg/dL (0.1-20.0) 11/12/16 10:18 Height (in) 65.0 inches 11/12/16 10:18 Weight (lb) 181.0 lbs 11/12/16 10:18 Creatinine Clearance 5 11/12/16 10:18 Urine Sodium 36 mEq/L 09/16/16 19:19 Urine Total Protein 16 mg/dL (5-11.8) H 09/16/16 19:19 Fluid Type Pleural 01/13/17 12:10 Fluid Color Yellow 01/13/17 12:10 Fluid Appearance Hazy 01/13/17 12:10 Fluid WBC 182 /mm3 01/13/17 12:10 Fluid RBC 41 /mm3 01/13/17 12:10 Fluid Seg Neutrophils 85.0 % 01/13/17 12:10 Fluid Lymphocytes 8.0 % 01/13/17 12:10 Fluid Reactive Lymphs 0 % 01/13/17 12:10 Fluid Monocytes 6.0 % 01/13/17 12:10 Fluid Eosinophils 1.0 % 01/13/17 12:10 Fluid Basophils 0 % 01/13/17 12:10 Fluid Total Protein 3.0 (15.0-45.0) L 01/13/17 12:10 Fluid LDH 1322 01/13/17 12:10 Fluid Comment Diff performed 01/13/17 12:10 Vancomycin Trough 2.3 ug/mL (5.0-20.0) L 09/21/16 13:00 Random Vancomycin 16.5 ug/mL (0-40.0) 11/28/16 09:45 Urine Opiates Screen Presumptive negative 09/03/16 15:11 Urine Methadone Screen Presumptive positive 09/03/16 15:11 Ur Barbiturates Screen Presumptive positive 09/03/16 15:11 Ur Phencyclidine Scrn Presumptive negative 09/03/16 15:11 Ur Amphetamines Screen Presumptive negative 09/03/16 15:11 U Benzodiazepines Scrn Presumptive negative 09/03/16 15:11 Urine Cocaine Screen Presumptive negative 09/03/16 15:11 U Marijuana (THC) Screen Presumptive positive 09/03/16 15:11 Drugs of Abuse Note Disclamer 09/03/16 15:11 Rheumatoid Factor 24 IU/ml (0-13) H 09/08/16 11:48 SAHIL Screen Negative (Negative) 09/07/16 09:20 Proteinase 3 (PR3) Ab <1.0 AI (<1.0) 09/07/16 09:20 Myeloperoxidase Ab <1.0 AI (<1.0) 09/07/16 09:20 Sjogren's Antibody <1.0 AI (<1.0) 09/08/16 15:35 Scl-70 Scleroderma Ab <1.0 AI (<1.0) 09/08/16 15:35 Centromere B Antibody <1.0 AI (<1.0) 09/08/16 12:02 Heparin-induced Plt Ab Negative (Negative) 09/29/16 13:35 UF Heparin High Dose 11 % Release 09/29/16 13:35 SUDHIR UFH Low Dose 0.1 6 % Release 09/29/16 13:35 SUDHIR UFH Low Dose 0.5 8 % Release 09/29/16 13:35 Cardiolipid IgG Ab <14 GPL (<=14) 09/12/16 09:59 Cardiolipid IgA Ab <11 APL (<=11) 09/12/16 09:59 Cardiolipid IgM Ab <12 MPL (<=12) 09/12/16 09:59 Complement C3 148 mg/dL (90-180) 09/07/16 09:20 Complement C4 58 mg/dL (16-47) H 09/07/16 09:20 RPR Nonreactive (Nonreactive) 09/08/16 11:48 Hepatitis A IgM Ab Non-reactive (NonReactive) 09/24/16 14:40 Hep Bs Antigen Non-reactive (Negative) 09/24/16 14:40 Hep B Core IgM Ab Non-reactive (NonReactive) 09/24/16 14:40 Hepatitis C Antibody Non-reactive (NonReactive) 09/24/16 14:40 HIV 1&2 Antibody Rapid Non react (Non React) 09/08/16 11:48 HIV P24 Antigen Non react (Non React) 09/08/16 11:48 Miscellaneous Test Flexitest 1 H 01/09/17 18:45 Blood Type A POSITIVE 02/12/17 10:25 Antibody Screen Negative 02/12/17 10:25 DELORIS Antibody Screen Negative 11/24/16 11:20 Crossmatch See Detail 02/12/17 10:25 - Imaging and Cardiology CT scan - abdomen: image reviewed (bowel peforation)
[2017-02-13] MEDS: HumuLIN R SUB-Q SCH ×4 (00:37→18:00)
[2017-02-13 05:12] LABS: Hematocrit 25.2 % (30.3-42.9); Hemoglobin 7.8 gm/dl (10.1-14.3); Mean Corpuscular HGB Conc 31 % (30-34); Mean Corpuscular Hemoglobin 27 pg (28-32); Mean Corpuscular Volume 86 fl (79-97); Platelet Count 302 K/mm3 (140-440); Red Blood Count 2.92 M/mm3 (3.65-5.03); Red Cell Distribution Width 19.3 % (13.2-15.2)
[2017-02-13 05:21] LABS: Calcium 11.3 mg/dL (8.4-10.2)
[2017-02-13] MEDS: REGLAN IV SCH ×3 (05:49→23:00)
[2017-02-13] MEDS: DUONEB *Not for PRN Use IH SCH ×3 (08:52→19:25)
[2017-02-13] MEDS: MAG-OX PO SCH (09:33)
[2017-02-13] MEDS: PROTONIX FEEDTUBE SCH (09:33)
[2017-02-13] MEDS: HEPARIN SUB-Q SCH (09:34)
[2017-02-13] MEDS: ROBINUL PO SCH (09:40)
[2017-02-13] MEDS: ALBURX 25% (ALBUMIN) IV PRN (10:12)
--- NOTE | 2017-02-13 10:49 | Progress Note ---
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 BP noted to be on the low side. Patient getting PRN albumin * Continue dialysis on Mondays, Wednesdays and Fridays schedule for now. * Continue PRN albumin for blood pressure support * Packed RBC transfusion as needed per primary team * Patient's serum creatinine is noted to be low. However she is oliguric and remains volume overloaded. Needs to be maintained on dialysis at this time. . * Avoid nephrotoxins * Adjust meds for GFR less than 10 * No evidence of renal recovery at this time Subjective Date of service: 02/13/17 Principal diagnosis: Acute resp failure on MVS; S/P Acute CVA; Acute Encephalopathy; JUANITA Interval history: Patient remains on the ventilator. Unresponsive. Undergoing hemodialysis. Tolerating well. Objective - Vital Signs Vital signs: Vital Signs - 12hr 02/12/17 02/12/17 02/12/17 23:00 23:15 23:18 Temperature Pulse Rate 116 H 119 H Pulse Rate [ From Monitor] Respiratory 32 H Rate Blood Pressure 92/60 92/60 O2 Sat by Pulse 100 98 Oximetry O2 Sat by Pulse Oximetry [ Anterior Bilateral Throughout] O2 Sat by Pulse 98 Oximetry [ Assessment] 02/12/17 02/13/17 02/13/17 23:46 00:00 01:00 Temperature 98.8 F Pulse Rate 125 H 118 H Pulse Rate [ From Monitor] Respiratory 22 19 Rate Blood Pressure 107/57 97/57 O2 Sat by Pulse 97 97 Oximetry O2 Sat by Pulse Oximetry [ Anterior Bilateral Throughout] O2 Sat by Pulse Oximetry [ Assessment] 02/13/17 02/13/17 02/13/17 02:00 03:00 03:06 Temperature Pulse Rate 119 H 116 H 115 H Pulse Rate [ From Monitor] Respiratory 19 22 Rate Blood Pressure 83/44 88/54 88/54 O2 Sat by Pulse 96 97 100 Oximetry O2 Sat by Pulse Oximetry [ Anterior Bilateral Throughout] O2 Sat by Pulse Oximetry [ Assessment] 02/13/17 02/13/17 02/13/17 03:36 04:00 05:00 Temperature 99.2 F Pulse Rate 119 H 118 H Pulse Rate [ From Monitor] Respiratory 21 19 Rate Blood Pressure 89/57 90/53 O2 Sat by Pulse 98 98 Oximetry O2 Sat by Pulse Oximetry [ Anterior Bilateral Throughout] O2 Sat by Pulse Oximetry [ Assessment] 02/13/17 02/13/17 02/13/17 06:00 07:00 08:00 Temperature 97.1 F L Pulse Rate 116 H 118 H 128 H Pulse Rate [ 116 H From Monitor] Respiratory 19 14 24 Rate Blood Pressure 103/52 96/61 96/61 O2 Sat by Pulse 97 97 99 Oximetry O2 Sat by Pulse Oximetry [ Anterior Bilateral Throughout] O2 Sat by Pulse Oximetry [ Assessment] 02/13/17 02/13/17 02/13/17 08:50 09:00 09:15 Temperature 97.1 F L Pulse Rate 125 H 125 H 123 H Pulse Rate [ From Monitor] Respiratory 23 20 Rate Blood Pressure 108/67 108/54 94/59 O2 Sat by Pulse 100 Oximetry O2 Sat by Pulse 100 Oximetry [ Anterior Bilateral Throughout] O2 Sat by Pulse Oximetry [ Assessment] 02/13/17 02/13/17 02/13/17 09:30 09:45 10:00 Temperature Pulse Rate 119 H 125 H 117 H Pulse Rate [ From Monitor] Respiratory 20 Rate Blood Pressure 96/50 93/57 93/57 O2 Sat by Pulse 100 Oximetry O2 Sat by Pulse Oximetry [ Anterior Bilateral Throughout] O2 Sat by Pulse Oximetry [ Assessment] 02/13/17 02/13/17 10:01 10:15 Temperature Pulse Rate 115 H 114 H Pulse Rate [ From Monitor] Respiratory Rate Blood Pressure 83/59 95/75 O2 Sat by Pulse Oximetry O2 Sat by Pulse Oximetry [ Anterior Bilateral Throughout] O2 Sat by Pulse Oximetry [ Assessment] - General Appearance General appearance: chronically ill, frail EENT: PERRL, mucous membranes moist Neck: no JVD, other (tracheostomy tube in place. Connected to the ventilator) Respiratory: Present: Ronchi (bilateral scattered rhonchi) Cardiology: regular, normal heart rate, S1S2, no murmurs Gastrointestinal: normal, normoactive bowel sounds Integumentary: other (1+ edema) - Lab 02/13/17 05:00 02/13/17 05:00 Most recent lab results ABG pH 7.450 pH Units (7.350-7.450) 12/05/16 Unknown ABG pCO2 29.6 mm Hg 12/05/16 Unknown ABG pO2 75.2 mm Hg (80.0-90.0) L 12/05/16 Unknown ABG HCO3 20.1 mmol/L (20.0-26.0) 12/05/16 Unknown ABG O2 Saturation 96.8 % (95.0-99.0) 12/05/16 Unknown Calcium 11.3 mg/dL (8.4-10.2) H 02/13/17 05:00 Phosphorus 3.70 mg/dL (2.5-4.5) 02/13/17 05:00 Magnesium 2.10 mg/dL (1.7-2.3) 02/12/17 06:19 Urine Creatinine 19.7 mg/dL (0.1-20.0) 11/12/16 10:18 Urine Sodium 36 mEq/L 09/16/16 19:19 Urine Total Protein 16 mg/dL (5-11.8) H 09/16/16 19:19
[2017-02-13] MEDS: HEPARIN IV PRN (12:25)
--- NOTE | 2017-02-13 12:53 | Progress Note ---
Assessment and Plan Acute Hypoxemic Respiratory Failure (now with exacerbation and back on MVS) Hypertension (unable to receive p.o. meds) Atrial Fibrillation with RVR s/p tracheostomy Acute encephalopathy s/p CVA Oropharyngeal dysphagia Enterococcal bacteremia sepsis syndrome Sacral Decubitus Ulcer (s/p surgical debridement) Anemia Obesity JUANITA now on hemodialysis Enteric Fistula (Surgical options discussed with POA and they have decided against surgery) - Made a DNR - continue to hold tube feeds due to continued intolerance; continue reglan at 10mg IV q8h - IR earlier consulted for G-J tube (not a good candidate for G-J Tube per IR) - Pleural fluid cultures negative - unfortunately not a good candidate for a VATS procedure - appreciate surgery input - continue fentanyl patch for pain issues especially s/p debridement - continue wound care per WCT and RN's (she is s/p surgical debridement) - continue anti-infectives per ID recs ( now) - prn CRP & lactate levels if clinically indicated (Follow WBC also) - keep on with daily PSV trials and / or T-piece as tolerated - continue TPN administration - continue scopolamine for secretion control - continue to wean FiO2 for sats > 94% - continue bronchodilators and pulmonary toilet - VAP bundle addressed - continue prn IV metoprolol (5mg IV q6h) - continue metoprolol and amlodipine (hold for hypotension) - continue to follow electrolytes and correct as necessary - continue GI & VTE prophylaxis - Continue flu & pneumovax per protocol - ethics consult placed and pending .....she remains critically ill on life sustaining interventions including MVS and at risk for further deterioration including ....30' CCT ....care plan discussed at length during team rounds ...usp prognosis remains guarded and this has intermittently been conveyed to family Subjective Date of service: 02/13/17 Principal diagnosis: Acute resp failure on MVS; S/P Acute CVA; Acute Encephalopathy; JUANITA Interval history: Patient is seen today for: Acute resp failure on MVS; S/P Acute CVA; Acute Encephalopathy; JUANITA Seen and examined at bedside; 24hour events reviewed; nursing and respiratory care staff consulted; no adverse overnight events reported to me; remains on MVS ; Objective Vital Signs - 12hr 02/13/17 02/13/17 02/13/17 01:00 02:00 03:00 Temperature Pulse Rate 118 H 119 H 116 H Pulse Rate [ Anterior Bilateral Throughout] Pulse Rate [ From Monitor] Pulse Rate [ Throughout] Respiratory 19 19 22 Rate Respiratory Rate [Anterior Bilateral Throughout] Respiratory Rate [ Throughout] Blood Pressure 97/57 83/44 88/54 O2 Sat by Pulse 97 96 97 Oximetry O2 Sat by Pulse Oximetry [ Anterior Bilateral Throughout] O2 Sat by Pulse Oximetry [ Assessment] 02/13/17 02/13/17 02/13/17 03:06 03:36 04:00 Temperature 99.2 F Pulse Rate 115 H 119 H Pulse Rate [ Anterior Bilateral Throughout] Pulse Rate [ From Monitor] Pulse Rate [ Throughout] Respiratory 21 Rate Respiratory Rate [Anterior Bilateral Throughout] Respiratory Rate [ Throughout] Blood Pressure 88/54 89/57 O2 Sat by Pulse 100 98 Oximetry O2 Sat by Pulse Oximetry [ Anterior Bilateral Throughout] O2 Sat by Pulse Oximetry [ Assessment] 02/13/17 02/13/17 02/13/17 05:00 06:00 07:00 Temperature Pulse Rate 118 H 116 H 118 H Pulse Rate [ Anterior Bilateral Throughout] Pulse Rate [ From Monitor] Pulse Rate [ Throughout] Respiratory 19 19 14 Rate Respiratory Rate [Anterior Bilateral Throughout] Respiratory Rate [ Throughout] Blood Pressure 90/53 103/52 96/61 O2 Sat by Pulse 98 97 97 Oximetry O2 Sat by Pulse Oximetry [ Anterior Bilateral Throughout] O2 Sat by Pulse Oximetry [ Assessment] 02/13/17 02/13/17 02/13/17 08:00 08:45 08:50 Temperature 97.1 F L 97.1 F L Pulse Rate 128 H 107 H 125 H Pulse Rate [ Anterior Bilateral Throughout] Pulse Rate [ 116 H From Monitor] Pulse Rate [ 120 H Throughout] Respiratory 24 23 Rate Respiratory Rate [Anterior Bilateral Throughout] Respiratory 22 Rate [ Throughout] Blood Pressure 96/61 87/50 108/67 O2 Sat by Pulse 99 100 Oximetry O2 Sat by Pulse 100 Oximetry [ Anterior Bilateral Throughout] O2 Sat by Pulse Oximetry [ Assessment] 02/13/17 02/13/17 02/13/17 09:00 09:15 09:30 Temperature Pulse Rate 125 H 123 H 119 H Pulse Rate [ Anterior Bilateral Throughout] Pulse Rate [ From Monitor] Pulse Rate [ Throughout] Respiratory 20 Rate Respiratory Rate [Anterior Bilateral Throughout] Respiratory Rate [ Throughout] Blood Pressure 108/54 94/59 96/50 O2 Sat by Pulse 100 Oximetry O2 Sat by Pulse Oximetry [ Anterior Bilateral Throughout] O2 Sat by Pulse Oximetry [ Assessment] 02/13/17 02/13/17 02/13/17 09:43 09:45 10:00 Temperature Pulse Rate 125 H 117 H Pulse Rate [ 120 H Anterior Bilateral Throughout] Pulse Rate [ 116 H From Monitor] Pulse Rate [ 118 H Throughout] Respiratory 20 Rate Respiratory 26 H Rate [Anterior Bilateral Throughout] Respiratory 22 Rate [ Throughout] Blood Pressure 93/57 93/57 O2 Sat by Pulse 100 Oximetry O2 Sat by Pulse Oximetry [ Anterior Bilateral Throughout] O2 Sat by Pulse Oximetry [ Assessment] 02/13/17 02/13/17 02/13/17 10:01 10:15 10:30 Temperature Pulse Rate 115 H 114 H 115 H Pulse Rate [ Anterior Bilateral Throughout] Pulse Rate [ From Monitor] Pulse Rate [ Throughout] Respiratory Rate Respiratory Rate [Anterior Bilateral Throughout] Respiratory Rate [ Throughout] Blood Pressure 83/59 95/75 93/56 O2 Sat by Pulse Oximetry O2 Sat by Pulse Oximetry [ Anterior Bilateral Throughout] O2 Sat by Pulse Oximetry [ Assessment] 02/13/17 02/13/17 02/13/17 10:45 11:00 11:16 Temperature Pulse Rate 107 H 113 H 105 H Pulse Rate [ Anterior Bilateral Throughout] Pulse Rate [ From Monitor] Pulse Rate [ Throughout] Respiratory 22 Rate Respiratory Rate [Anterior Bilateral Throughout] Respiratory Rate [ Throughout] Blood Pressure 89/62 89/56 90/56 O2 Sat by Pulse 97 Oximetry O2 Sat by Pulse Oximetry [ Anterior Bilateral Throughout] O2 Sat by Pulse Oximetry [ Assessment] 02/13/17 02/13/17 02/13/17 11:29 11:40 11:46 Temperature Pulse Rate 107 H 105 H Pulse Rate [ Anterior Bilateral Throughout] Pulse Rate [ From Monitor] Pulse Rate [ Throughout] Respiratory Rate Respiratory Rate [Anterior Bilateral Throughout] Respiratory Rate [ Throughout] Blood Pressure 87/50 96/55 O2 Sat by Pulse Oximetry O2 Sat by Pulse Oximetry [ Anterior Bilateral Throughout] O2 Sat by Pulse 98 Oximetry [ Assessment] 02/13/17 02/13/17 12:00 12:20 Temperature 97.1 F L Pulse Rate 101 H 102 H Pulse Rate [ Anterior Bilateral Throughout] Pulse Rate [ 104 H From Monitor] Pulse Rate [ Throughout] Respiratory 32 H 25 H Rate Respiratory Rate [Anterior Bilateral Throughout] Respiratory Rate [ Throughout] Blood Pressure 101/62 92/57 O2 Sat by Pulse 97 Oximetry O2 Sat by Pulse 98 Oximetry [ Anterior Bilateral Throughout] O2 Sat by Pulse Oximetry [ Assessment] Constitutional: appears uncomfortable, other (not tracking) Eyes: non-icteric, other (tracheostomy tube in midline of neck) ENT: oropharynx moist, oropharyngeal exudate pre Neck: supple, no lymphadenopathy, no JVD, other (no thyromegaly) Effort: mildly labored Ascultation: Bilateral: clear, diminished breath sounds (bases R>L), rales, rhonchi (and referred upper airway sounds) Percussion: Right: dull (base), Bilateral: not dull Cardiovascular: regular rate and rhythm, other (no rubs / murmurs) Gastrointestinal: hypoactive bowel sounds, soft, non-tender, non-distended, other (RLQ & LUQ stomas with colostomy bags) Integumentary: decubitus ulcer (sacral; stage 4 s/p surgical debridement), other (no rash; no cellulitis; poor turgor) Extremities: no cyanosis, pulses normal, no ischemia or petechiae, edema (1+ bilaterally) Neurologic: pupils equal and round, unable to assess, other (encephalopathic) Psychiatric: other (unable to assess) CBC and BMP: 02/13/17 05:00 02/13/17 05:00 ABG, PT/INR, D-dimer: ABG POC ABG pH 7.436 (7.35-7.45) 01/20/17 12:17 ABG pH 7.450 pH Units (7.350-7.450) 12/05/16 Unknown POC ABG pCO2 35.3 (35-45) 01/20/17 12: ABG pCO2 29.6 mm Hg 12/05/16 Unknown POC ABG pO2 70 (80-105) L 01/20/17 12: ABG pO2 75.2 mm Hg (80.0-90.0) L 12/05/16 Unknown POC ABG HCO3 23.8 01/20/17 12:17 POC ABG Total CO2 25 01/20/17 12:17 POC ABG O2 Sat 94 01/20/17 12: ABG O2 Saturation 96.8 % (95.0-99.0) 12/05/16 Unknown PT/INR, D-dimer PT 15.4 Sec. (12.2-14.9) H 01/13/17 15:50 INR 1.16 (0.87-1.13) H 01/13/17 15:50 Abnormal lab findings: Abnormal Labs 09/03/16 09/03/16 09/03/16 00:03 00:10 00:10 WBC 13.9 H RBC 5.95 H Hgb Hct 44.0 H MCV 74 L MCH 22 L MCHC RDW 17.5 H Plt Count Lymph % (Auto) Pope % (Auto) Lymph # Pope # Baso # Seg Neutrophils % Seg Neuts % (Manual) Lymphocytes % (Manual) 54.0 H Monocytes % (Manual) Eosinophils % (Manual) Basophils % (Manual) Nucleated RBC % Seg Neutrophils # Seg Neutrophils # Man Lymphocytes # (Manual) 7.5 H Monocytes # (Manual) Eosinophils # (Manual) Basophils # (Manual) PT INR Fibrinogen dRVVT Confirm Interp Factor V Activity POC ABG pH POC ABG pCO2 POC ABG pO2 ABG pO2 ABG HCO3 ABG Base Excess ABG Hemoglobin Oxyhemoglobin Sodium Potassium 2.8 L* Chloride Carbon Dioxide 21 L BUN Creatinine 1.7 H Glucose 159 H POC Glucose 177 H Lactic Acid Calcium Phosphorus Magnesium Direct Bilirubin AST ALT Alkaline Phosphatase Lactate Dehydrogenase Troponin T C-Reactive Protein Total Protein Albumin Prealbumin Triglycerides Cholesterol LDL Cholesterol Direct HDL Cholesterol PTH Intact Urine pH Urine WBC (Auto) Urine Creatinine Urine Total Protein Fluid Total Protein Vancomycin Trough Rheumatoid Factor Complement C4 Miscellaneous Test Crossmatch 09/03/16 09/03/16 09/03/16 12:12 15:07 16:20 WBC RBC Hgb Hct MCV MCH MCHC RDW Plt Count Lymph % (Auto) Pope % (Auto) Lymph # Pope # Baso # Seg Neutrophils % Seg Neuts % (Manual) Lymphocytes % (Manual) Monocytes % (Manual) Eosinophils % (Manual) Basophils % (Manual) Nucleated RBC % Seg Neutrophils # Seg Neutrophils # Man Lymphocytes # (Manual) Monocytes # (Manual) Eosinophils # (Manual) Basophils # (Manual) PT INR Fibrinogen dRVVT Confirm Interp Factor V Activity POC ABG pH 7.452 H POC ABG pCO2 POC ABG pO2 ABG pO2 ABG HCO3 ABG Base Excess ABG Hemoglobin Oxyhemoglobin Sodium Potassium Chloride Carbon Dioxide BUN Creatinine Glucose POC Glucose 178 H Lactic Acid Calcium Phosphorus 2.20 L Magnesium 1.60 L Direct Bilirubin AST ALT Alkaline Phosphatase Lactate Dehydrogenase Troponin T C-Reactive Protein Total Protein Albumin Prealbumin Triglycerides Cholesterol LDL Cholesterol Direct HDL Cholesterol PTH Intact Urine pH Urine WBC (Auto) Urine Creatinine Urine Total Protein Fluid Total Protein Vancomycin Trough Rheumatoid Factor Complement C4 Miscellaneous Test Crossmatch 09/03/16 09/03/16 09/03/16 17:57 17:58 23:50 WBC RBC Hgb Hct MCV MCH MCHC RDW Plt Count Lymph % (Auto) Pope % (Auto) Lymph # Pope # Baso # Seg Neutrophils % Seg Neuts % (Manual) Lymphocytes % (Manual) Monocytes % (Manual) Eosinophils % (Manual) Basophils % (Manual) Nucleated RBC % Seg Neutrophils # Seg Neutrophils # Man Lymphocytes # (Manual) Monocytes # (Manual) Eosinophils # (Manual) Basophils # (Manual) PT INR Fibrinogen dRVVT Confirm Interp Factor V Activity POC ABG pH POC ABG pCO2 POC ABG pO2 ABG pO2 ABG HCO3 ABG Base Excess ABG Hemoglobin Oxyhemoglobin Sodium Potassium Chloride Carbon Dioxide BUN Creatinine Glucose POC Glucose 162 H 145 H Lactic Acid Calcium Phosphorus 2.30 L Magnesium Direct Bilirubin AST ALT Alkaline Phosphatase Lactate Dehydrogenase Troponin T C-Reactive Protein Total Protein Albumin Prealbumin Triglycerides Cholesterol LDL Cholesterol Direct HDL Cholesterol PTH Intact Urine pH Urine WBC (Auto) Urine Creatinine Urine Total Protein Fluid Total Protein Vancomycin Trough Rheumatoid Factor Complement C4 Miscellaneous Test Crossmatch 09/04/16 09/04/16 09/04/16 03:31 03:31 05:42 WBC RBC Hgb 9.7 L D Hct MCV 72 L MCH 23 L MCHC RDW 17.5 H Plt Count Lymph % (Auto) 11.1 L Pope % (Auto) Lymph # Pope # Baso # Seg Neutrophils % 84.3 H Seg Neuts % (Manual) Lymphocytes % (Manual) Monocytes % (Manual) Eosinophils % (Manual) Basophils % (Manual) Nucleated RBC % Seg Neutrophils # 8.9 H Seg Neutrophils # Man Lymphocytes # (Manual) Monocytes # (Manual) Eosinophils # (Manual) Basophils # (Manual) PT INR Fibrinogen dRVVT Confirm Interp Factor V Activity POC ABG pH POC ABG pCO2 POC ABG pO2 ABG pO2 ABG HCO3 ABG Base Excess ABG Hemoglobin Oxyhemoglobin Sodium 135 L Potassium 2.9 L* Chloride 97.2 L Carbon Dioxide 19 L BUN Creatinine 1.7 H Glucose 170 H POC Glucose 152 H Lactic Acid Calcium Phosphorus Magnesium Direct Bilirubin AST ALT Alkaline Phosphatase Lactate Dehydrogenase Troponin T C-Reactive Protein Total Protein Albumin Prealbumin Triglycerides 160 H Cholesterol LDL Cholesterol Direct HDL Cholesterol 31 L PTH Intact Urine pH Urine WBC (Auto) Urine Creatinine Urine Total Protein Fluid Total Protein Vancomycin Trough Rheumatoid Factor Complement C4 Miscellaneous Test Crossmatch 09/04/16 09/04/16 09/04/16 11:34 17:46 23:29 WBC RBC Hgb Hct MCV MCH MCHC RDW Plt Count Lymph % (Auto) Pope % (Auto) Lymph # Pope # Baso # Seg Neutrophils % Seg Neuts % (Manual) Lymphocytes % (Manual) Monocytes % (Manual) Eosinophils % (Manual) Basophils % (Manual) Nucleated RBC % Seg Neutrophils # Seg Neutrophils # Man Lymphocytes # (Manual) Monocytes # (Manual) Eosinophils # (Manual) Basophils # (Manual) PT INR Fibrinogen dRVVT Confirm Interp Factor V Activity POC ABG pH POC ABG pCO2 POC ABG pO2 ABG pO2 ABG HCO3 ABG Base Excess ABG Hemoglobin Oxyhemoglobin Sodium Potassium Chloride Carbon Dioxide BUN Creatinine Glucose POC Glucose 165 H 210 H 139 H Lactic Acid Calcium Phosphorus Magnesium Direct Bilirubin AST ALT Alkaline Phosphatase Lactate Dehydrogenase Troponin T C-Reactive Protein Total Protein Albumin Prealbumin Triglycerides Cholesterol LDL Cholesterol Direct HDL Cholesterol PTH Intact Urine pH Urine WBC (Auto) Urine Creatinine Urine Total Protein Fluid Total Protein Vancomycin Trough Rheumatoid Factor Complement C4 Miscellaneous Test Crossmatch 09/05/16 09/05/16 09/05/16 04:05 04:05 05:38 WBC RBC Hgb Hct MCV 76 L D MCH 23 L MCHC RDW 17.8 H Plt Count Lymph % (Auto) Pope % (Auto) Lymph # Pope # Baso # Seg Neutrophils % Seg Neuts % (Manual) Lymphocytes % (Manual) Monocytes % (Manual) Eosinophils % (Manual) Basophils % (Manual) Nucleated RBC % Seg Neutrophils # Seg Neutrophils # Man Lymphocytes # (Manual) Monocytes # (Manual) Eosinophils # (Manual) Basophils # (Manual) PT INR Fibrinogen dRVVT Confirm Interp Factor V Activity POC ABG pH POC ABG pCO2 POC ABG pO2 ABG pO2 ABG HCO3 ABG Base Excess ABG Hemoglobin Oxyhemoglobin Sodium 134 L Potassium Chloride Carbon Dioxide 18 L BUN Creatinine 1.8 H Glucose 192 H POC Glucose 175 H Lactic Acid Calcium Phosphorus Magnesium Direct Bilirubin AST ALT Alkaline Phosphatase Lactate Dehydrogenase Troponin T C-Reactive Protein Total Protein Albumin Prealbumin Triglycerides Cholesterol LDL Cholesterol Direct HDL Cholesterol PTH Intact Urine pH Urine WBC (Auto) Urine Creatinine Urine Total Protein Fluid Total Protein Vancomycin Trough Rheumatoid Factor Complement C4 Miscellaneous Test Crossmatch 09/05/16 09/05/16 09/05/16 11:38 17:48 23:22 WBC RBC Hgb Hct MCV MCH MCHC RDW Plt Count Lymph % (Auto) Pope % (Auto) Lymph # Pope # Baso # Seg Neutrophils % Seg Neuts % (Manual) Lymphocytes % (Manual) Monocytes % (Manual) Eosinophils % (Manual) Basophils % (Manual) Nucleated RBC % Seg Neutrophils # Seg Neutrophils # Man Lymphocytes # (Manual) Monocytes # (Manual) Eosinophils # (Manual) Basophils # (Manual) PT INR Fibrinogen dRVVT Confirm Interp Factor V Activity POC ABG pH POC ABG pCO2 POC ABG pO2 ABG pO2 ABG HCO3 ABG Base Excess ABG Hemoglobin Oxyhemoglobin Sodium Potassium Chloride Carbon Dioxide BUN Creatinine Glucose POC Glucose 164 H 186 H 195 H Lactic Acid Calcium Phosphorus Magnesium Direct Bilirubin AST ALT Alkaline Phosphatase Lactate Dehydrogenase Troponin T C-Reactive Protein Total Protein Albumin Prealbumin Triglycerides Cholesterol LDL Cholesterol Direct HDL Cholesterol PTH Intact Urine pH Urine WBC (Auto) Urine Creatinine Urine Total Protein Fluid Total Protein Vancomycin Trough Rheumatoid Factor Complement C4 Miscellaneous Test Crossmatch 09/06/16 09/06/16 09/06/16 04:12 05:59 07:32 WBC RBC Hgb Hct MCV MCH MCHC RDW Plt Count Lymph % (Auto) Pope % (Auto) Lymph # Pope # Baso # Seg Neutrophils % Seg Neuts % (Manual) Lymphocytes % (Manual) Monocytes % (Manual) Eosinophils % (Manual) Basophils % (Manual) Nucleated RBC % Seg Neutrophils # Seg Neutrophils # Man Lymphocytes # (Manual) Monocytes # (Manual) Eosinophils # (Manual) Basophils # (Manual) PT INR Fibrinogen dRVVT Confirm Interp Factor V Activity POC ABG pH 7.514 H POC ABG pCO2 29.1 L POC ABG pO2 72 L ABG pO2 ABG HCO3 ABG Base Excess ABG Hemoglobin Oxyhemoglobin Sodium 133 L Potassium 3.4 L Chloride 94.9 L Carbon Dioxide 19 L BUN 30 H Creatinine 2.1 H Glucose 139 H POC Glucose 146 H Lactic Acid Calcium Phosphorus Magnesium Direct Bilirubin AST ALT Alkaline Phosphatase Lactate Dehydrogenase Troponin T C-Reactive Protein Total Protein Albumin Prealbumin Triglycerides Cholesterol LDL Cholesterol Direct HDL Cholesterol PTH Intact Urine pH Urine WBC (Auto) Urine Creatinine Urine Total Protein Fluid Total Protein Vancomycin Trough Rheumatoid Factor Complement C4 Miscellaneous Test Crossmatch 09/06/16 09/06/16 09/06/16 11:57 17:58 19:02 WBC RBC Hgb Hct MCV MCH MCHC RDW Plt Count Lymph % (Auto) Pope % (Auto) Lymph # Pope # Baso # Seg Neutrophils % Seg Neuts % (Manual) Lymphocytes % (Manual) Monocytes % (Manual) Eosinophils % (Manual) Basophils % (Manual) Nucleated RBC % Seg Neutrophils # Seg Neutrophils # Man Lymphocytes # (Manual) Monocytes # (Manual) Eosinophils # (Manual) Basophils # (Manual) PT INR Fibrinogen dRVVT Confirm Interp Factor V Activity POC ABG pH 7.465 H POC ABG pCO2 32.0 L POC ABG pO2 ABG pO2 ABG HCO3 ABG Base Excess ABG Hemoglobin Oxyhemoglobin Sodium Potassium Chloride Carbon Dioxide BUN Creatinine Glucose POC Glucose 165 H 160 H Lactic Acid Calcium Phosphorus Magnesium Direct Bilirubin AST ALT Alkaline Phosphatase Lactate Dehydrogenase Troponin T C-Reactive Protein Total Protein Albumin Prealbumin Triglycerides Cholesterol LDL Cholesterol Direct HDL Cholesterol PTH Intact Urine pH Urine WBC (Auto) Urine Creatinine Urine Total Protein Fluid Total Protein Vancomycin Trough Rheumatoid Factor Complement C4 Miscellaneous Test Crossmatch 09/06/16 09/07/16 09/07/16 23:45 02:47 02:47 WBC RBC Hgb Hct MCV MCH MCHC RDW Plt Count Lymph % (Auto) Pope % (Auto) Lymph # Pope # Baso # Seg Neutrophils % Seg Neuts % (Manual) Lymphocytes % (Manual) Monocytes % (Manual) Eosinophils % (Manual) Basophils % (Manual) Nucleated RBC % Seg Neutrophils # Seg Neutrophils # Man Lymphocytes # (Manual) Monocytes # (Manual) Eosinophils # (Manual) Basophils # (Manual) PT INR Fibrinogen dRVVT Confirm Interp Factor V Activity POC ABG pH POC ABG pCO2 POC ABG pO2 ABG pO2 ABG HCO3 ABG Base Excess ABG Hemoglobin Oxyhemoglobin Sodium Potassium Chloride Carbon Dioxide BUN Creatinine Glucose POC Glucose 204 H Lactic Acid Calcium Phosphorus Magnesium Direct Bilirubin AST ALT Alkaline Phosphatase Lactate Dehydrogenase Troponin T C-Reactive Protein Total Protein Albumin Prealbumin Triglycerides Cholesterol LDL Cholesterol Direct HDL Cholesterol PTH Intact Urine pH Urine WBC (Auto) 68.0 H Urine Creatinine 106.1 H Urine Total Protein Fluid Total Protein Vancomycin Trough Rheumatoid Factor Complement C4 Miscellaneous Test Crossmatch 09/07/16 09/07/16 09/07/16 04:50 06:19 06:39 WBC RBC Hgb Hct MCV MCH MCHC RDW Plt Count Lymph % (Auto) Pope % (Auto) Lymph # Pope # Baso # Seg Neutrophils % Seg Neuts % (Manual) Lymphocytes % (Manual) Monocytes % (Manual) Eosinophils % (Manual) Basophils % (Manual) Nucleated RBC % Seg Neutrophils # Seg Neutrophils # Man Lymphocytes # (Manual) Monocytes # (Manual) Eosinophils # (Manual) Basophils # (Manual) PT INR Fibrinogen dRVVT Confirm Interp Factor V Activity POC ABG pH 7.457 H POC ABG pCO2 32.1 L POC ABG pO2 76 L ABG pO2 ABG HCO3 ABG Base Excess ABG Hemoglobin Oxyhemoglobin Sodium 132 L Potassium Chloride 94.7 L Carbon Dioxide BUN 53 H Creatinine 2.9 H Glucose 151 H POC Glucose 149 H Lactic Acid Calcium Phosphorus Magnesium Direct Bilirubin AST ALT Alkaline Phosphatase Lactate Dehydrogenase Troponin T C-Reactive Protein Total Protein Albumin Prealbumin Triglycerides Cholesterol LDL Cholesterol Direct HDL Cholesterol PTH Intact Urine pH Urine WBC (Auto) Urine Creatinine Urine Total Protein Fluid Total Protein Vancomycin Trough Rheumatoid Factor Complement C4 Miscellaneous Test Crossmatch 09/07/16 09/07/16 09/07/16 09:20 11:43 11:43 WBC 19.4 H RBC Hgb 8.3 L Hct 26.4 L D MCV 72 L D MCH 22 L MCHC RDW 17.9 H Plt Count Lymph % (Auto) 8.5 L Pope % (Auto) Lymph # Pope # 1.0 H Baso # Seg Neutrophils % 85.8 H Seg Neuts % (Manual) Lymphocytes % (Manual) Monocytes % (Manual) Eosinophils % (Manual) Basophils % (Manual) Nucleated RBC % Seg Neutrophils # 16.6 H Seg Neutrophils # Man Lymphocytes # (Manual) Monocytes # (Manual) Eosinophils # (Manual) Basophils # (Manual) PT INR Fibrinogen dRVVT Confirm Interp Factor V Activity POC ABG pH POC ABG pCO2 POC ABG pO2 ABG pO2 ABG HCO3 ABG Base Excess ABG Hemoglobin Oxyhemoglobin Sodium 134 L Potassium Chloride 97.2 L Carbon Dioxide 20 L BUN 58 H Creatinine 2.9 H Glucose 147 H POC Glucose Lactic Acid Calcium Phosphorus 2.40 L Magnesium 2.40 H Direct Bilirubin AST ALT Alkaline Phosphatase Lactate Dehydrogenase Troponin T C-Reactive Protein Total Protein 5.8 L Albumin 2.2 L Prealbumin Triglycerides Cholesterol LDL Cholesterol Direct HDL Cholesterol PTH Intact Urine pH Urine WBC (Auto) Urine Creatinine Urine Total Protein Fluid Total Protein Vancomycin Trough Rheumatoid Factor Complement C4 58 H Miscellaneous Test Crossmatch 09/07/16 09/07/16 09/07/16 11:50 16:00 17:31 WBC RBC Hgb Hct MCV MCH MCHC RDW Plt Count Lymph % (Auto) Pope % (Auto) Lymph # Pope # Baso # Seg Neutrophils % Seg Neuts % (Manual) Lymphocytes % (Manual) Monocytes % (Manual) Eosinophils % (Manual) Basophils % (Manual) Nucleated RBC % Seg Neutrophils # Seg Neutrophils # Man Lymphocytes # (Manual) Monocytes # (Manual) Eosinophils # (Manual) Basophils # (Manual) PT INR Fibrinogen dRVVT Confirm Interp Factor V Activity POC ABG pH POC ABG pCO2 POC ABG pO2 158 H ABG pO2 ABG HCO3 ABG Base Excess ABG Hemoglobin Oxyhemoglobin Sodium Potassium Chloride Carbon Dioxide BUN Creatinine Glucose POC Glucose 175 H Lactic Acid Calcium Phosphorus Magnesium Direct Bilirubin AST ALT Alkaline Phosphatase Lactate Dehydrogenase Troponin T C-Reactive Protein Total Protein Albumin Prealbumin Triglycerides Cholesterol LDL Cholesterol Direct HDL Cholesterol PTH Intact Urine pH Urine WBC (Auto) Urine Creatinine 66.3 H Urine Total Protein Fluid Total Protein Vancomycin Trough Rheumatoid Factor Complement C4 Miscellaneous Test Crossmatch 09/07/16 09/08/16 09/08/16 23:50 05:46 06:18 WBC 17.8 H RBC 3.58 L Hgb 8.1 L Hct 25.5 L MCV 71 L MCH 23 L MCHC RDW 18.4 H Plt Count Lymph % (Auto) Pope % (Auto) Lymph # Pope # Baso # Seg Neutrophils % Seg Neuts % (Manual) 92.0 H Lymphocytes % (Manual) 6.0 L Monocytes % (Manual) Eosinophils % (Manual) Basophils % (Manual) Nucleated RBC % Seg Neutrophils # Seg Neutrophils # Man 16.4 H Lymphocytes # (Manual) 1.1 L Monocytes # (Manual) Eosinophils # (Manual) Basophils # (Manual) PT INR Fibrinogen dRVVT Confirm Interp Factor V Activity POC ABG pH POC ABG pCO2 34.3 L POC ABG pO2 71 L ABG pO2 ABG HCO3 ABG Base Excess ABG Hemoglobin Oxyhemoglobin Sodium Potassium Chloride Carbon Dioxide BUN Creatinine Glucose POC Glucose 216 H Lactic Acid Calcium Phosphorus Magnesium Direct Bilirubin AST ALT Alkaline Phosphatase Lactate Dehydrogenase Troponin T C-Reactive Protein Total Protein Albumin Prealbumin Triglycerides Cholesterol LDL Cholesterol Direct HDL Cholesterol PTH Intact Urine pH Urine WBC (Auto) Urine Creatinine Urine Total Protein Fluid Total Protein Vancomycin Trough Rheumatoid Factor Complement C4 Miscellaneous Test Crossmatch 09/08/16 09/08/16 09/08/16 06:18 06:51 10:55 WBC RBC Hgb Hct MCV MCH MCHC RDW Plt Count Lymph % (Auto) Pope % (Auto) Lymph # Pope # Baso # Seg Neutrophils % Seg Neuts % (Manual) Lymphocytes % (Manual) Monocytes % (Manual) Eosinophils % (Manual) Basophils % (Manual) Nucleated RBC % Seg Neutrophils # Seg Neutrophils # Man Lymphocytes # (Manual) Monocytes # (Manual) Eosinophils # (Manual) Basophils # (Manual) PT INR Fibrinogen dRVVT Confirm Interp Factor V Activity POC ABG pH POC ABG pCO2 POC ABG pO2 ABG pO2 ABG HCO3 ABG Base Excess ABG Hemoglobin Oxyhemoglobin Sodium 133 L Potassium Chloride 96.9 L Carbon Dioxide 20 L BUN 63 H Creatinine 2.7 H Glucose 195 H POC Glucose 204 H 169 H Lactic Acid Calcium Phosphorus Magnesium Direct Bilirubin AST ALT Alkaline Phosphatase Lactate Dehydrogenase Troponin T C-Reactive Protein Total Protein Albumin Prealbumin Triglycerides Cholesterol LDL Cholesterol Direct HDL Cholesterol PTH Intact Urine pH Urine WBC (Auto) Urine Creatinine Urine Total Protein Fluid Total Protein Vancomycin Trough Rheumatoid Factor Complement C4 Miscellaneous Test Crossmatch 09/08/16 09/08/16 09/08/16 11:48 11:48 11:48 WBC RBC Hgb Hct MCV MCH MCHC RDW Plt Count Lymph % (Auto) Pope % (Auto) Lymph # Pope # Baso # Seg Neutrophils % Seg Neuts % (Manual) Lymphocytes % (Manual) Monocytes % (Manual) Eosinophils % (Manual) Basophils % (Manual) Nucleated RBC % Seg Neutrophils # Seg Neutrophils # Man Lymphocytes # (Manual) Monocytes # (Manual) Eosinophils # (Manual) Basophils # (Manual) PT INR Fibrinogen 750 H dRVVT Confirm Interp Factor V Activity POC ABG pH POC ABG pCO2 POC ABG pO2 ABG pO2 ABG HCO3 ABG Base Excess ABG Hemoglobin Oxyhemoglobin Sodium Potassium Chloride Carbon Dioxide BUN Creatinine Glucose POC Glucose Lactic Acid Calcium Phosphorus Magnesium Direct Bilirubin AST ALT Alkaline Phosphatase Lactate Dehydrogenase Troponin T C-Reactive Protein 15.70 H Total Protein Albumin Prealbumin Triglycerides Cholesterol LDL Cholesterol Direct HDL Cholesterol PTH Intact Urine pH Urine WBC (Auto) Urine Creatinine Urine Total Protein Fluid Total Protein Vancomycin Trough Rheumatoid Factor 24 H Complement C4 Miscellaneous Test Crossmatch 09/08/16 09/08/16 09/09/16 15:35 18:25 00:24 WBC RBC Hgb Hct MCV MCH MCHC RDW Plt Count Lymph % (Auto) Pope % (Auto) Lymph # Pope # Baso # Seg Neutrophils % Seg Neuts % (Manual) Lymphocytes % (Manual) Monocytes % (Manual) Eosinophils % (Manual) Basophils % (Manual) Nucleated RBC % Seg Neutrophils # Seg Neutrophils # Man Lymphocytes # (Manual) Monocytes # (Manual) Eosinophils # (Manual) Basophils # (Manual) PT INR Fibrinogen dRVVT Confirm Interp Factor V Activity 182 H POC ABG pH POC ABG pCO2 POC ABG pO2 ABG pO2 ABG HCO3 ABG Base Excess ABG Hemoglobin Oxyhemoglobin Sodium Potassium Chloride Carbon Dioxide BUN Creatinine Glucose POC Glucose 184 H 216 H Lactic Acid Calcium Phosphorus Magnesium Direct Bilirubin AST ALT Alkaline Phosphatase Lactate Dehydrogenase Troponin T C-Reactive Protein Total Protein Albumin Prealbumin Triglycerides Cholesterol LDL Cholesterol Direct HDL Cholesterol PTH Intact Urine pH Urine WBC (Auto) Urine Creatinine Urine Total Protein Fluid Total Protein Vancomycin Trough Rheumatoid Factor Complement C4 Miscellaneous Test Crossmatch 09/09/16 09/09/16 09/09/16 03:00 03:00 04:04 WBC 27.9 H RBC Hgb 8.7 L Hct 28.1 L MCV 72 L MCH 22 L MCHC RDW 18.4 H Plt Count 485 H Lymph % (Auto) Pope % (Auto) Lymph # Pope # Baso # Seg Neutrophils % Seg Neuts % (Manual) 77.0 H Lymphocytes % (Manual) 9.0 L Monocytes % (Manual) Eosinophils % (Manual) Basophils % (Manual) Nucleated RBC % Seg Neutrophils # Seg Neutrophils # Man 21.5 H Lymphocytes # (Manual) Monocytes # (Manual) 2.0 H Eosinophils # (Manual) Basophils # (Manual) PT INR Fibrinogen dRVVT Confirm Interp Factor V Activity POC ABG pH POC ABG pCO2 POC ABG pO2 121 H ABG pO2 ABG HCO3 ABG Base Excess ABG Hemoglobin Oxyhemoglobin Sodium 135 L Potassium Chloride 96.3 L Carbon Dioxide 21 L BUN 83 H Creatinine 3.0 H Glucose 135 H POC Glucose Lactic Acid Calcium Phosphorus Magnesium Direct Bilirubin AST ALT Alkaline Phosphatase Lactate Dehydrogenase Troponin T C-Reactive Protein Total Protein Albumin Prealbumin Triglycerides Cholesterol LDL Cholesterol Direct HDL Cholesterol PTH Intact Urine pH Urine WBC (Auto) Urine Creatinine Urine Total Protein Fluid Total Protein Vancomycin Trough Rheumatoid Factor Complement C4 Miscellaneous Test Crossmatch 09/09/16 09/09/16 09/09/16 05:41 11:55 14:13 WBC RBC Hgb Hct MCV MCH MCHC RDW Plt Count Lymph % (Auto) Pope % (Auto) Lymph # Pope # Baso # Seg Neutrophils % Seg Neuts % (Manual) Lymphocytes % (Manual) Monocytes % (Manual) Eosinophils % (Manual) Basophils % (Manual) Nucleated RBC % Seg Neutrophils # Seg Neutrophils # Man Lymphocytes # (Manual) Monocytes # (Manual) Eosinophils # (Manual) Basophils # (Manual) PT INR Fibrinogen dRVVT Confirm Interp Factor V Activity POC ABG pH POC ABG pCO2 POC ABG pO2 ABG pO2 ABG HCO3 ABG Base Excess ABG Hemoglobin Oxyhemoglobin Sodium Potassium Chloride Carbon Dioxide BUN Creatinine Glucose POC Glucose 155 H 186 H Lactic Acid Calcium Phosphorus Magnesium Direct Bilirubin AST ALT Alkaline Phosphatase Lactate Dehydrogenase Troponin T C-Reactive Protein Total Protein Albumin Prealbumin Triglycerides Cholesterol LDL Cholesterol Direct HDL Cholesterol PTH Intact Urine pH Urine WBC (Auto) 25.0 H Urine Creatinine Urine Total Protein Fluid Total Protein Vancomycin Trough Rheumatoid Factor Complement C4 Miscellaneous Test Crossmatch 09/09/16 09/09/16 09/10/16 17:33 23:13 05:09 WBC RBC Hgb Hct MCV MCH MCHC RDW Plt Count Lymph % (Auto) Pope % (Auto) Lymph # Pope # Baso # Seg Neutrophils % Seg Neuts % (Manual) Lymphocytes % (Manual) Monocytes % (Manual) Eosinophils % (Manual) Basophils % (Manual) Nucleated RBC % Seg Neutrophils # Seg Neutrophils # Man Lymphocytes # (Manual) Monocytes # (Manual) Eosinophils # (Manual) Basophils # (Manual) PT INR Fibrinogen dRVVT Confirm Interp Factor V Activity POC ABG pH POC ABG pCO2 POC ABG pO2 74 L ABG pO2 ABG HCO3 ABG Base Excess ABG Hemoglobin Oxyhemoglobin Sodium Potassium Chloride Carbon Dioxide BUN Creatinine Glucose POC Glucose 211 H 215 H Lactic Acid Calcium Phosphorus Magnesium Direct Bilirubin AST ALT Alkaline Phosphatase Lactate Dehydrogenase Troponin T C-Reactive Protein Total Protein Albumin Prealbumin Triglycerides Cholesterol LDL Cholesterol Direct HDL Cholesterol PTH Intact Urine pH Urine WBC (Auto) Urine Creatinine Urine Total Protein Fluid Total Protein Vancomycin Trough Rheumatoid Factor Complement C4 Miscellaneous Test Crossmatch 09/10/16 09/10/16 09/10/16 05:17 05:17 11:31 WBC 15.8 H RBC 3.25 L Hgb 7.3 L Hct 22.9 L MCV 71 L MCH 23 L MCHC RDW 18.4 H Plt Count Lymph % (Auto) Pope % (Auto) Lymph # Pope # Baso # Seg Neutrophils % Seg Neuts % (Manual) 91.0 H Lymphocytes % (Manual) 4.0 L Monocytes % (Manual) Eosinophils % (Manual) Basophils % (Manual) Nucleated RBC % Seg Neutrophils # Seg Neutrophils # Man 14.4 H Lymphocytes # (Manual) 0.6 L Monocytes # (Manual) Eosinophils # (Manual) Basophils # (Manual) PT INR Fibrinogen dRVVT Confirm Interp Factor V Activity POC ABG pH POC ABG pCO2 POC ABG pO2 ABG pO2 ABG HCO3 ABG Base Excess ABG Hemoglobin Oxyhemoglobin Sodium Potassium Chloride Carbon Dioxide 21 L BUN 93 H Creatinine 2.9 H Glucose 146 H POC Glucose 188 H Lactic Acid Calcium 8.1 L Phosphorus Magnesium Direct Bilirubin AST ALT Alkaline Phosphatase Lactate Dehydrogenase Troponin T C-Reactive Protein Total Protein Albumin Prealbumin Triglycerides Cholesterol LDL Cholesterol Direct HDL Cholesterol PTH Intact Urine pH Urine WBC (Auto) Urine Creatinine Urine Total Protein Fluid Total Protein Vancomycin Trough Rheumatoid Factor Complement C4 Miscellaneous Test Crossmatch 09/10/16 09/10/16 09/10/16 13:17 17:20 23:32 WBC RBC Hgb Hct MCV MCH MCHC RDW Plt Count Lymph % (Auto) Pope % (Auto) Lymph # Pope # Baso # Seg Neutrophils % Seg Neuts % (Manual) Lymphocytes % (Manual) Monocytes % (Manual) Eosinophils % (Manual) Basophils % (Manual) Nucleated RBC % Seg Neutrophils # Seg Neutrophils # Man Lymphocytes # (Manual) Monocytes # (Manual) Eosinophils # (Manual) Basophils # (Manual) PT INR Fibrinogen dRVVT Confirm Interp Factor V Activity POC ABG pH POC ABG pCO2 POC ABG pO2 ABG pO2 ABG HCO3 ABG Base Excess ABG Hemoglobin Oxyhemoglobin Sodium Potassium Chloride Carbon Dioxide BUN Creatinine Glucose POC Glucose 199 H 186 H Lactic Acid Calcium Phosphorus Magnesium Direct Bilirubin AST ALT Alkaline Phosphatase Lactate Dehydrogenase Troponin T C-Reactive Protein Total Protein Albumin Prealbumin Triglycerides Cholesterol LDL Cholesterol Direct HDL Cholesterol PTH Intact Urine pH Urine WBC (Auto) Urine Creatinine Urine Total Protein Fluid Total Protein Vancomycin Trough Rheumatoid Factor Complement C4 Miscellaneous Test Crossmatch See Detail 09/11/16 09/11/16 09/11/16 05:10 05:10 05:17 WBC 28.4 H RBC Hgb 9.2 L Hct 29.3 L D MCV 73 L MCH 23 L MCHC RDW 18.9 H Plt Count 452 H Lymph % (Auto) Pope % (Auto) Lymph # Pope # Baso # Seg Neutrophils % Seg Neuts % (Manual) 89.5 H Lymphocytes % (Manual) 2.0 L Monocytes % (Manual) Eosinophils % (Manual) Basophils % (Manual) Nucleated RBC % Seg Neutrophils # Seg Neutrophils # Man 25.4 H Lymphocytes # (Manual) 0.6 L Monocytes # (Manual) 1.3 H Eosinophils # (Manual) Basophils # (Manual) PT INR Fibrinogen dRVVT Confirm Interp Factor V Activity POC ABG pH POC ABG pCO2 POC ABG pO2 ABG pO2 ABG HCO3 ABG Base Excess ABG Hemoglobin Oxyhemoglobin Sodium 136 L Potassium Chloride Carbon Dioxide 18 L BUN 107 H Creatinine 2.6 H Glucose 187 H POC Glucose 230 H Lactic Acid Calcium 8.3 L Phosphorus Magnesium Direct Bilirubin AST ALT Alkaline Phosphatase Lactate Dehydrogenase Troponin T C-Reactive Protein Total Protein Albumin Prealbumin Triglycerides Cholesterol LDL Cholesterol Direct HDL Cholesterol PTH Intact Urine pH Urine WBC (Auto) Urine Creatinine Urine Total Protein Fluid Total Protein Vancomycin Trough Rheumatoid Factor Complement C4 Miscellaneous Test Crossmatch 09/11/16 09/11/16 09/11/16 05:55 12:02 17:32 WBC RBC Hgb Hct MCV MCH MCHC RDW Plt Count Lymph % (Auto) Pope % (Auto) Lymph # Pope # Baso # Seg Neutrophils % Seg Neuts % (Manual) Lymphocytes % (Manual) Monocytes % (Manual) Eosinophils % (Manual) Basophils % (Manual) Nucleated RBC % Seg Neutrophils # Seg Neutrophils # Man Lymphocytes # (Manual) Monocytes # (Manual) Eosinophils # (Manual) Basophils # (Manual) PT INR Fibrinogen dRVVT Confirm Interp Factor V Activity POC ABG pH POC ABG pCO2 33.8 L POC ABG pO2 ABG pO2 ABG HCO3 ABG Base Excess ABG Hemoglobin Oxyhemoglobin Sodium Potassium Chloride Carbon Dioxide BUN Creatinine Glucose POC Glucose 191 H 239 H Lactic Acid Calcium Phosphorus Magnesium Direct Bilirubin AST ALT Alkaline Phosphatase Lactate Dehydrogenase Troponin T C-Reactive Protein Total Protein Albumin Prealbumin Triglycerides Cholesterol LDL Cholesterol Direct HDL Cholesterol PTH Intact Urine pH Urine WBC (Auto) Urine Creatinine Urine Total Protein Fluid Total Protein Vancomycin Trough Rheumatoid Factor Complement C4 Miscellaneous Test Crossmatch 09/11/16 09/12/16 09/12/16 23:52 05:09 05:32 WBC RBC Hgb Hct MCV MCH MCHC RDW Plt Count Lymph % (Auto) Pope % (Auto) Lymph # Pope # Baso # Seg Neutrophils % Seg Neuts % (Manual) Lymphocytes % (Manual) Monocytes % (Manual) Eosinophils % (Manual) Basophils % (Manual) Nucleated RBC % Seg Neutrophils # Seg Neutrophils # Man Lymphocytes # (Manual) Monocytes # (Manual) Eosinophils # (Manual) Basophils # (Manual) PT INR Fibrinogen dRVVT Confirm Interp Factor V Activity POC ABG pH POC ABG pCO2 34.6 L POC ABG pO2 ABG pO2 ABG HCO3 ABG Base Excess ABG Hemoglobin Oxyhemoglobin Sodium Potassium Chloride Carbon Dioxide BUN Creatinine Glucose POC Glucose 265 H 184 H Lactic Acid Calcium Phosphorus Magnesium Direct Bilirubin AST ALT Alkaline Phosphatase Lactate Dehydrogenase Troponin T C-Reactive Protein Total Protein Albumin Prealbumin Triglycerides Cholesterol LDL Cholesterol Direct HDL Cholesterol PTH Intact Urine pH Urine WBC (Auto) Urine Creatinine Urine Total Protein Fluid Total Protein Vancomycin Trough Rheumatoid Factor Complement C4 Miscellaneous Test Crossmatch 09/12/16 09/12/16 09/12/16 06:45 06:45 07:22 WBC 31.7 H RBC 3.54 L Hgb 8.3 L Hct 25.9 L MCV 73 L MCH 23 L MCHC RDW 18.9 H Plt Count Lymph % (Auto) Pope % (Auto) Lymph # Pope # Baso # Seg Neutrophils % Seg Neuts % (Manual) 88.5 H Lymphocytes % (Manual) 4.5 L Monocytes % (Manual) Eosinophils % (Manual) Basophils % (Manual) Nucleated RBC % Seg Neutrophils # Seg Neutrophils # Man 28.1 H Lymphocytes # (Manual) Monocytes # (Manual) 1.0 H Eosinophils # (Manual) Basophils # (Manual) PT INR Fibrinogen dRVVT Confirm Interp Factor V Activity POC ABG pH POC ABG pCO2 POC ABG pO2 ABG pO2 ABG HCO3 ABG Base Excess ABG Hemoglobin Oxyhemoglobin Sodium Potassium Chloride Carbon Dioxide 20 L BUN 115 H Creatinine 2.7 H Glucose 165 H POC Glucose Lactic Acid Calcium 8.0 L Phosphorus Magnesium Direct Bilirubin AST ALT Alkaline Phosphatase Lactate Dehydrogenase Troponin T C-Reactive Protein Total Protein Albumin Prealbumin Triglycerides 217 H Cholesterol LDL Cholesterol Direct HDL Cholesterol PTH Intact Urine pH Urine WBC (Auto) Urine Creatinine Urine Total Protein Fluid Total Protein Vancomycin Trough Rheumatoid Factor Complement C4 Miscellaneous Test Crossmatch 09/12/16 09/12/16 09/12/16 07:22 09:59 12:21 WBC RBC Hgb Hct MCV MCH MCHC RDW Plt Count Lymph % (Auto) Pope % (Auto) Lymph # Pope # Baso # Seg Neutrophils % Seg Neuts % (Manual) Lymphocytes % (Manual) Monocytes % (Manual) Eosinophils % (Manual) Basophils % (Manual) Nucleated RBC % Seg Neutrophils # Seg Neutrophils # Man Lymphocytes # (Manual) Monocytes # (Manual) Eosinophils # (Manual) Basophils # (Manual) PT INR Fibrinogen dRVVT Confirm Interp Positive H Factor V Activity POC ABG pH POC ABG pCO2 POC ABG pO2 ABG pO2 ABG HCO3 ABG Base Excess ABG Hemoglobin Oxyhemoglobin Sodium Potassium Chloride Carbon Dioxide BUN Creatinine Glucose POC Glucose 224 H Lactic Acid Calcium Phosphorus Magnesium Direct Bilirubin AST ALT Alkaline Phosphatase Lactate Dehydrogenase Troponin T C-Reactive Protein 1.70 H Total Protein Albumin Prealbumin Triglycerides Cholesterol LDL Cholesterol Direct HDL Cholesterol PTH Intact Urine pH Urine WBC (Auto) Urine Creatinine Urine Total Protein Fluid Total Protein Vancomycin Trough Rheumatoid Factor Complement C4 Miscellaneous Test Crossmatch 09/12/16 09/12/16 09/13/16 16:51 23:28 04:00 WBC 45.0 H* RBC Hgb 9.4 L Hct MCV 75 L MCH 23 L MCHC RDW 19.0 H Plt Count 470 H Lymph % (Auto) Pope % (Auto) Lymph # Pope # Baso # Seg Neutrophils % Seg Neuts % (Manual) 89.0 H Lymphocytes % (Manual) 5.0 L Monocytes % (Manual) Eosinophils % (Manual) Basophils % (Manual) Nucleated RBC % Seg Neutrophils # Seg Neutrophils # Man 40.1 H Lymphocytes # (Manual) Monocytes # (Manual) Eosinophils # (Manual) Basophils # (Manual) PT INR Fibrinogen dRVVT Confirm Interp Factor V Activity POC ABG pH POC ABG pCO2 POC ABG pO2 ABG pO2 ABG HCO3 ABG Base Excess ABG Hemoglobin Oxyhemoglobin Sodium Potassium Chloride Carbon Dioxide BUN Creatinine Glucose POC Glucose 169 H 150 H Lactic Acid Calcium Phosphorus Magnesium Direct Bilirubin AST ALT Alkaline Phosphatase Lactate Dehydrogenase Troponin T C-Reactive Protein Total Protein Albumin Prealbumin Triglycerides Cholesterol LDL Cholesterol Direct HDL Cholesterol PTH Intact Urine pH Urine WBC (Auto) Urine Creatinine Urine Total Protein Fluid Total Protein Vancomycin Trough Rheumatoid Factor Complement C4 Miscellaneous Test Crossmatch 09/13/16 09/13/16 09/13/16 04:00 11:26 17:31 WBC RBC Hgb Hct MCV MCH MCHC RDW Plt Count Lymph % (Auto) Pope % (Auto) Lymph # Pope # Baso # Seg Neutrophils % Seg Neuts % (Manual) Lymphocytes % (Manual) Monocytes % (Manual) Eosinophils % (Manual) Basophils % (Manual) Nucleated RBC % Seg Neutrophils # Seg Neutrophils # Man Lymphocytes # (Manual) Monocytes # (Manual) Eosinophils # (Manual) Basophils # (Manual) PT INR Fibrinogen dRVVT Confirm Interp Factor V Activity POC ABG pH POC ABG pCO2 POC ABG pO2 ABG pO2 ABG HCO3 ABG Base Excess ABG Hemoglobin Oxyhemoglobin Sodium Potassium Chloride Carbon Dioxide 20 L BUN 116 H Creatinine 3.0 H Glucose 172 H POC Glucose 140 H 183 H Lactic Acid Calcium Phosphorus Magnesium Direct Bilirubin AST ALT Alkaline Phosphatase Lactate Dehydrogenase Troponin T C-Reactive Protein Total Protein 6.2 L Albumin 2.9 L Prealbumin Triglycerides Cholesterol LDL Cholesterol Direct HDL Cholesterol PTH Intact Urine pH Urine WBC (Auto) Urine Creatinine Urine Total Protein Fluid Total Protein Vancomycin Trough Rheumatoid Factor Complement C4 Miscellaneous Test Crossmatch 09/13/16 09/14/16 09/14/16 23:23 04:06 04:07 WBC 29.4 H RBC Hgb 8.9 L Hct 27.3 L MCV 75 L MCH 24 L MCHC RDW 19.1 H Plt Count Lymph % (Auto) Pope % (Auto) Lymph # Pope # Baso # Seg Neutrophils % Seg Neuts % (Manual) 84.0 H Lymphocytes % (Manual) 6.0 L Monocytes % (Manual) 9.0 H Eosinophils % (Manual) Basophils % (Manual) Nucleated RBC % Seg Neutrophils # Seg Neutrophils # Man 24.7 H Lymphocytes # (Manual) Monocytes # (Manual) 2.6 H Eosinophils # (Manual) Basophils # (Manual) PT INR Fibrinogen dRVVT Confirm Interp Factor V Activity POC ABG pH 7.342 L POC ABG pCO2 POC ABG pO2 116 H ABG pO2 ABG HCO3 ABG Base Excess ABG Hemoglobin Oxyhemoglobin Sodium Potassium Chloride Carbon Dioxide BUN Creatinine Glucose POC Glucose 154 H Lactic Acid Calcium Phosphorus Magnesium Direct Bilirubin AST ALT Alkaline Phosphatase Lactate Dehydrogenase Troponin T C-Reactive Protein Total Protein Albumin Prealbumin Triglycerides Cholesterol LDL Cholesterol Direct HDL Cholesterol PTH Intact Urine pH Urine WBC (Auto) Urine Creatinine Urine Total Protein Fluid Total Protein Vancomycin Trough Rheumatoid Factor Complement C4 Miscellaneous Test Crossmatch 09/14/16 09/14/16 09/14/16 04:07 05:29 12:19 WBC RBC Hgb Hct MCV MCH MCHC RDW Plt Count Lymph % (Auto) Pope % (Auto) Lymph # Pope # Baso # Seg Neutrophils % Seg Neuts % (Manual) Lymphocytes % (Manual) Monocytes % (Manual) Eosinophils % (Manual) Basophils % (Manual) Nucleated RBC % Seg Neutrophils # Seg Neutrophils # Man Lymphocytes # (Manual) Monocytes # (Manual) Eosinophils # (Manual) Basophils # (Manual) PT INR Fibrinogen dRVVT Confirm Interp Factor V Activity POC ABG pH POC ABG pCO2 POC ABG pO2 ABG pO2 ABG HCO3 ABG Base Excess ABG Hemoglobin Oxyhemoglobin Sodium 136 L Potassium Chloride Carbon Dioxide 18 L BUN 121 H Creatinine 2.8 H Glucose 214 H POC Glucose 239 H 181 H Lactic Acid Calcium Phosphorus Magnesium Direct Bilirubin AST ALT Alkaline Phosphatase Lactate Dehydrogenase Troponin T C-Reactive Protein Total Protein Albumin Prealbumin Triglycerides Cholesterol LDL Cholesterol Direct HDL Cholesterol PTH Intact Urine pH Urine WBC (Auto) Urine Creatinine Urine Total Protein Fluid Total Protein Vancomycin Trough Rheumatoid Factor Complement C4 Miscellaneous Test Crossmatch 09/14/16 09/14/16 09/15/16 18:12 23:37 05:00 WBC 26.1 H RBC 3.05 L Hgb 7.2 L Hct 22.9 L MCV 75 L MCH 24 L MCHC RDW 19.0 H Plt Count Lymph % (Auto) Pope % (Auto) Lymph # Pope # Baso # Seg Neutrophils % Seg Neuts % (Manual) Lymphocytes % (Manual) Monocytes % (Manual) Eosinophils % (Manual) Basophils % (Manual) Nucleated RBC % Seg Neutrophils # Seg Neutrophils # Man Lymphocytes # (Manual) Monocytes # (Manual) Eosinophils # (Manual) Basophils # (Manual) PT INR Fibrinogen dRVVT Confirm Interp Factor V Activity POC ABG pH POC ABG pCO2 POC ABG pO2 ABG pO2 ABG HCO3 ABG Base Excess ABG Hemoglobin Oxyhemoglobin Sodium Potassium Chloride Carbon Dioxide BUN Creatinine Glucose POC Glucose 266 H 154 H Lactic Acid Calcium Phosphorus Magnesium Direct Bilirubin AST ALT Alkaline Phosphatase Lactate Dehydrogenase Troponin T C-Reactive Protein Total Protein Albumin Prealbumin Triglycerides Cholesterol LDL Cholesterol Direct HDL Cholesterol PTH Intact Urine pH Urine WBC (Auto) Urine Creatinine Urine Total Protein Fluid Total Protein Vancomycin Trough Rheumatoid Factor Complement C4 Miscellaneous Test Crossmatch 09/15/16 09/15/16 09/15/16 05:00 05:17 12:45 WBC RBC Hgb Hct MCV MCH MCHC RDW Plt Count Lymph % (Auto) Pope % (Auto) Lymph # Pope # Baso # Seg Neutrophils % Seg Neuts % (Manual) Lymphocytes % (Manual) Monocytes % (Manual) Eosinophils % (Manual) Basophils % (Manual) Nucleated RBC % Seg Neutrophils # Seg Neutrophils # Man Lymphocytes # (Manual) Monocytes # (Manual) Eosinophils # (Manual) Basophils # (Manual) PT INR Fibrinogen dRVVT Confirm Interp Factor V Activity POC ABG pH POC ABG pCO2 POC ABG pO2 ABG pO2 ABG HCO3 ABG Base Excess ABG Hemoglobin Oxyhemoglobin Sodium Potassium 5.2 H Chloride Carbon Dioxide 18 L BUN 139 H Creatinine 3.7 H Glucose 227 H POC Glucose 226 H 244 H Lactic Acid Calcium 8.3 L Phosphorus Magnesium Direct Bilirubin AST ALT Alkaline Phosphatase Lactate Dehydrogenase Troponin T C-Reactive Protein Total Protein Albumin Prealbumin Triglycerides Cholesterol LDL Cholesterol Direct HDL Cholesterol PTH Intact Urine pH Urine WBC (Auto) Urine Creatinine Urine Total Protein Fluid Total Protein Vancomycin Trough Rheumatoid Factor Complement C4 Miscellaneous Test Crossmatch 09/15/16 09/15/16 09/15/16 14:32 17:33 23:35 WBC RBC Hgb Hct MCV MCH MCHC RDW Plt Count Lymph % (Auto) Pope % (Auto) Lymph # Pope # Baso # Seg Neutrophils % Seg Neuts % (Manual) Lymphocytes % (Manual) Monocytes % (Manual) Eosinophils % (Manual) Basophils % (Manual) Nucleated RBC % Seg Neutrophils # Seg Neutrophils # Man Lymphocytes # (Manual) Monocytes # (Manual) Eosinophils # (Manual) Basophils # (Manual) PT INR Fibrinogen dRVVT Confirm Interp Factor V Activity POC ABG pH POC ABG pCO2 27.7 L POC ABG pO2 120 H ABG pO2 ABG HCO3 ABG Base Excess ABG Hemoglobin Oxyhemoglobin Sodium Potassium Chloride Carbon Dioxide BUN Creatinine Glucose POC Glucose 232 H 167 H Lactic Acid Calcium Phosphorus Magnesium Direct Bilirubin AST ALT Alkaline Phosphatase Lactate Dehydrogenase Troponin T C-Reactive Protein Total Protein Albumin Prealbumin Triglycerides Cholesterol LDL Cholesterol Direct HDL Cholesterol PTH Intact Urine pH Urine WBC (Auto) Urine Creatinine Urine Total Protein Fluid Total Protein Vancomycin Trough Rheumatoid Factor Complement C4 Miscellaneous Test Crossmatch 09/16/16 09/16/16 09/16/16 03:58 10:27 10:27 WBC 19.0 H RBC 2.77 L Hgb 6.5 L Hct 20.9 L MCV 76 L MCH 23 L MCHC RDW 19.3 H Plt Count Lymph % (Auto) 11.0 L Pope % (Auto) Lymph # Pope # 1.1 H Baso # Seg Neutrophils % 82.5 H Seg Neuts % (Manual) Lymphocytes % (Manual) Monocytes % (Manual) Eosinophils % (Manual) Basophils % (Manual) Nucleated RBC % Seg Neutrophils # 15.7 H Seg Neutrophils # Man Lymphocytes # (Manual) Monocytes # (Manual) Eosinophils # (Manual) Basophils # (Manual) PT INR Fibrinogen dRVVT Confirm Interp Factor V Activity POC ABG pH POC ABG pCO2 POC ABG pO2 ABG pO2 ABG HCO3 ABG Base Excess ABG Hemoglobin Oxyhemoglobin Sodium Potassium Chloride 109.3 H Carbon Dioxide 18 L BUN 139 H Creatinine 4.1 H Glucose 144 H POC Glucose 146 H Lactic Acid Calcium 8.1 L Phosphorus Magnesium Direct Bilirubin AST ALT Alkaline Phosphatase Lactate Dehydrogenase Troponin T C-Reactive Protein Total Protein Albumin Prealbumin Triglycerides Cholesterol LDL Cholesterol Direct HDL Cholesterol PTH Intact Urine pH Urine WBC (Auto) Urine Creatinine Urine Total Protein Fluid Total Protein Vancomycin Trough Rheumatoid Factor Complement C4 Miscellaneous Test Crossmatch 09/16/16 09/16/16 09/16/16 12:04 12:10 13:55 WBC RBC Hgb Hct MCV MCH MCHC RDW Plt Count Lymph % (Auto) Pope % (Auto) Lymph # Pope # Baso # Seg Neutrophils % Seg Neuts % (Manual) Lymphocytes % (Manual) Monocytes % (Manual) Eosinophils % (Manual) Basophils % (Manual) Nucleated RBC % Seg Neutrophils # Seg Neutrophils # Man Lymphocytes # (Manual) Monocytes # (Manual) Eosinophils # (Manual) Basophils # (Manual) PT INR Fibrinogen dRVVT Confirm Interp Factor V Activity POC ABG pH POC ABG pCO2 32.9 L POC ABG pO2 ABG pO2 ABG HCO3 ABG Base Excess ABG Hemoglobin Oxyhemoglobin Sodium Potassium Chloride Carbon Dioxide BUN Creatinine Glucose POC Glucose 185 H Lactic Acid Calcium Phosphorus Magnesium Direct Bilirubin AST ALT Alkaline Phosphatase Lactate Dehydrogenase Troponin T C-Reactive Protein Total Protein Albumin Prealbumin Triglycerides Cholesterol LDL Cholesterol Direct HDL Cholesterol PTH Intact Urine pH Urine WBC (Auto) Urine Creatinine Urine Total Protein Fluid Total Protein Vancomycin Trough Rheumatoid Factor Complement C4 Miscellaneous Test Crossmatch See Detail 09/16/16 09/16/16 09/16/16 17:55 19:19 23:48 WBC RBC Hgb Hct MCV MCH MCHC RDW Plt Count Lymph % (Auto) Pope % (Auto) Lymph # Pope # Baso # Seg Neutrophils % Seg Neuts % (Manual) Lymphocytes % (Manual) Monocytes % (Manual) Eosinophils % (Manual) Basophils % (Manual) Nucleated RBC % Seg Neutrophils # Seg Neutrophils # Man Lymphocytes # (Manual) Monocytes # (Manual) Eosinophils # (Manual) Basophils # (Manual) PT INR Fibrinogen dRVVT Confirm Interp Factor V Activity POC ABG pH POC ABG pCO2 POC ABG pO2 ABG pO2 ABG HCO3 ABG Base Excess ABG Hemoglobin Oxyhemoglobin Sodium Potassium Chloride Carbon Dioxide BUN Creatinine Glucose POC Glucose 222 H 107 H Lactic Acid Calcium Phosphorus Magnesium Direct Bilirubin AST ALT Alkaline Phosphatase Lactate Dehydrogenase Troponin T C-Reactive Protein Total Protein Albumin Prealbumin Triglycerides Cholesterol LDL Cholesterol Direct HDL Cholesterol PTH Intact Urine pH Urine WBC (Auto) Urine Creatinine 47.4 H Urine Total Protein 16 H Fluid Total Protein Vancomycin Trough Rheumatoid Factor Complement C4 Miscellaneous Test Crossmatch 09/17/16 09/17/16 09/17/16 03:45 03:45 04:55 WBC 19.6 H RBC 3.41 L Hgb 8.5 L Hct 26.7 L MCV 78 L MCH 25 L MCHC RDW 19.9 H Plt Count Lymph % (Auto) 9.3 L Pope % (Auto) Lymph # Pope # 1.2 H Baso # Seg Neutrophils % 83.9 H Seg Neuts % (Manual) Lymphocytes % (Manual) Monocytes % (Manual) Eosinophils % (Manual) Basophils % (Manual) Nucleated RBC % Seg Neutrophils # 16.4 H Seg Neutrophils # Man Lymphocytes # (Manual) Monocytes # (Manual) Eosinophils # (Manual) Basophils # (Manual) PT INR Fibrinogen dRVVT Confirm Interp Factor V Activity POC ABG pH POC ABG pCO2 POC ABG pO2 ABG pO2 ABG HCO3 ABG Base Excess ABG Hemoglobin Oxyhemoglobin Sodium 146 H Potassium 5.1 H Chloride 110.9 H Carbon Dioxide 16 L BUN 146 H Creatinine 4.0 H Glucose 108 H POC Glucose 133 H Lactic Acid Calcium Phosphorus Magnesium 3.00 H Direct Bilirubin AST ALT Alkaline Phosphatase Lactate Dehydrogenase Troponin T C-Reactive Protein Total Protein Albumin Prealbumin Triglycerides Cholesterol LDL Cholesterol Direct HDL Cholesterol PTH Intact Urine pH Urine WBC (Auto) Urine Creatinine Urine Total Protein Fluid Total Protein Vancomycin Trough Rheumatoid Factor Complement C4 Miscellaneous Test Crossmatch 09/17/16 09/17/16 09/17/16 11:15 17:33 23:47 WBC RBC Hgb Hct MCV MCH MCHC RDW Plt Count Lymph % (Auto) Pope % (Auto) Lymph # Pope # Baso # Seg Neutrophils % Seg Neuts % (Manual) Lymphocytes % (Manual) Monocytes % (Manual) Eosinophils % (Manual) Basophils % (Manual) Nucleated RBC % Seg Neutrophils # Seg Neutrophils # Man Lymphocytes # (Manual) Monocytes # (Manual) Eosinophils # (Manual) Basophils # (Manual) PT INR Fibrinogen dRVVT Confirm Interp Factor V Activity POC ABG pH POC ABG pCO2 POC ABG pO2 ABG pO2 ABG HCO3 ABG Base Excess ABG Hemoglobin Oxyhemoglobin Sodium Potassium Chloride Carbon Dioxide BUN Creatinine Glucose POC Glucose 176 H 246 H 148 H Lactic Acid Calcium Phosphorus Magnesium Direct Bilirubin AST ALT Alkaline Phosphatase Lactate Dehydrogenase Troponin T C-Reactive Protein Total Protein Albumin Prealbumin Triglycerides Cholesterol LDL Cholesterol Direct HDL Cholesterol PTH Intact Urine pH Urine WBC (Auto) Urine Creatinine Urine Total Protein Fluid Total Protein Vancomycin Trough Rheumatoid Factor Complement C4 Miscellaneous Test Crossmatch 09/18/16 09/18/16 09/18/16 05:33 08:31 08:31 WBC 18.0 H RBC 3.17 L Hgb 9.0 L Hct 25.7 L MCV MCH MCHC 35 H RDW 20.4 H Plt Count Lymph % (Auto) Pope % (Auto) Lymph # Pope # Baso # Seg Neutrophils % Seg Neuts % (Manual) Lymphocytes % (Manual) Monocytes % (Manual) Eosinophils % (Manual) Basophils % (Manual) Nucleated RBC % Seg Neutrophils # Seg Neutrophils # Man Lymphocytes # (Manual) Monocytes # (Manual) Eosinophils # (Manual) Basophils # (Manual) PT INR Fibrinogen dRVVT Confirm Interp Factor V Activity POC ABG pH POC ABG pCO2 POC ABG pO2 ABG pO2 ABG HCO3 ABG Base Excess ABG Hemoglobin Oxyhemoglobin Sodium Potassium Chloride Carbon Dioxide 15 L BUN 124 H Creatinine 3.8 H Glucose POC Glucose 120 H Lactic Acid Calcium 8.1 L Phosphorus Magnesium Direct Bilirubin AST ALT Alkaline Phosphatase Lactate Dehydrogenase Troponin T C-Reactive Protein Total Protein Albumin Prealbumin Triglycerides Cholesterol LDL Cholesterol Direct HDL Cholesterol PTH Intact Urine pH Urine WBC (Auto) Urine Creatinine Urine Total Protein Fluid Total Protein Vancomycin Trough Rheumatoid Factor Complement C4 Miscellaneous Test Crossmatch 09/18/16 09/18/16 09/18/16 12:03 15:34 17:50 WBC RBC Hgb Hct MCV MCH MCHC RDW Plt Count Lymph % (Auto) Pope % (Auto) Lymph # Pope # Baso # Seg Neutrophils % Seg Neuts % (Manual) Lymphocytes % (Manual) Monocytes % (Manual) Eosinophils % (Manual) Basophils % (Manual) Nucleated RBC % Seg Neutrophils # Seg Neutrophils # Man Lymphocytes # (Manual) Monocytes # (Manual) Eosinophils # (Manual) Basophils # (Manual) PT INR Fibrinogen dRVVT Confirm Interp Factor V Activity POC ABG pH POC ABG pCO2 25.7 L POC ABG pO2 66 L ABG pO2 ABG HCO3 ABG Base Excess ABG Hemoglobin Oxyhemoglobin Sodium Potassium Chloride Carbon Dioxide BUN Creatinine Glucose POC Glucose 156 H 220 H Lactic Acid Calcium Phosphorus Magnesium Direct Bilirubin AST ALT Alkaline Phosphatase Lactate Dehydrogenase Troponin T C-Reactive Protein Total Protein Albumin Prealbumin Triglycerides Cholesterol LDL Cholesterol Direct HDL Cholesterol PTH Intact Urine pH Urine WBC (Auto) Urine Creatinine Urine Total Protein Fluid Total Protein Vancomycin Trough Rheumatoid Factor Complement C4 Miscellaneous Test Crossmatch 09/19/16 09/19/16 09/19/16 06:21 09:50 09:50 WBC 17.1 H RBC 3.49 L Hgb 9.0 L Hct 28.1 L MCV MCH 26 L MCHC RDW 20.8 H Plt Count Lymph % (Auto) 11.5 L Pope % (Auto) 7.5 H Lymph # Pope # 1.3 H Baso # Seg Neutrophils % 79.8 H Seg Neuts % (Manual) Lymphocytes % (Manual) Monocytes % (Manual) Eosinophils % (Manual) Basophils % (Manual) Nucleated RBC % Seg Neutrophils # 13.7 H Seg Neutrophils # Man Lymphocytes # (Manual) Monocytes # (Manual) Eosinophils # (Manual) Basophils # (Manual) PT INR Fibrinogen dRVVT Confirm Interp Factor V Activity POC ABG pH POC ABG pCO2 POC ABG pO2 ABG pO2 ABG HCO3 ABG Base Excess ABG Hemoglobin Oxyhemoglobin Sodium Potassium Chloride 108.6 H Carbon Dioxide 15 L BUN 125 H Creatinine 4.1 H Glucose 124 H POC Glucose 119 H Lactic Acid Calcium Phosphorus Magnesium Direct Bilirubin AST ALT Alkaline Phosphatase Lactate Dehydrogenase Troponin T C-Reactive Protein Total Protein Albumin Prealbumin Triglycerides Cholesterol LDL Cholesterol Direct HDL Cholesterol PTH Intact Urine pH Urine WBC (Auto) Urine Creatinine Urine Total Protein Fluid Total Protein Vancomycin Trough Rheumatoid Factor Complement C4 Miscellaneous Test Crossmatch 09/19/16 09/19/16 09/19/16 11:25 17:53 23:36 WBC RBC Hgb Hct MCV MCH MCHC RDW Plt Count Lymph % (Auto) Pope % (Auto) Lymph # Pope # Baso # Seg Neutrophils % Seg Neuts % (Manual) Lymphocytes % (Manual) Monocytes % (Manual) Eosinophils % (Manual) Basophils % (Manual) Nucleated RBC % Seg Neutrophils # Seg Neutrophils # Man Lymphocytes # (Manual) Monocytes # (Manual) Eosinophils # (Manual) Basophils # (Manual) PT INR Fibrinogen dRVVT Confirm Interp Factor V Activity POC ABG pH POC ABG pCO2 POC ABG pO2 ABG pO2 ABG HCO3 ABG Base Excess ABG Hemoglobin Oxyhemoglobin Sodium Potassium Chloride Carbon Dioxide BUN Creatinine Glucose POC Glucose 160 H 245 H 121 H Lactic Acid Calcium Phosphorus Magnesium Direct Bilirubin AST ALT Alkaline Phosphatase Lactate Dehydrogenase Troponin T C-Reactive Protein Total Protein Albumin Prealbumin Triglycerides Cholesterol LDL Cholesterol Direct HDL Cholesterol PTH Intact Urine pH Urine WBC (Auto) Urine Creatinine Urine Total Protein Fluid Total Protein Vancomycin Trough Rheumatoid Factor Complement C4 Miscellaneous Test Crossmatch 09/20/16 09/20/16 09/20/16 04:10 04:10 04:10 WBC 17.0 H RBC 3.21 L Hgb 8.2 L Hct 25.5 L MCV MCH 26 L MCHC RDW 20.9 H Plt Count Lymph % (Auto) Pope % (Auto) Lymph # Pope # Baso # Seg Neutrophils % Seg Neuts % (Manual) Lymphocytes % (Manual) Monocytes % (Manual) Eosinophils % (Manual) Basophils % (Manual) Nucleated RBC % Seg Neutrophils # Seg Neutrophils # Man Lymphocytes # (Manual) Monocytes # (Manual) Eosinophils # (Manual) Basophils # (Manual) PT INR Fibrinogen dRVVT Confirm Interp Factor V Activity POC ABG pH POC ABG pCO2 POC ABG pO2 ABG pO2 ABG HCO3 ABG Base Excess ABG Hemoglobin Oxyhemoglobin Sodium Potassium Chloride 111.0 H Carbon Dioxide 16 L BUN 129 H Creatinine 3.7 H Glucose 115 H POC Glucose Lactic Acid Calcium 8.2 L Phosphorus Magnesium Direct Bilirubin AST ALT Alkaline Phosphatase Lactate Dehydrogenase Troponin T C-Reactive Protein Total Protein Albumin Prealbumin Triglycerides 243 H Cholesterol LDL Cholesterol Direct HDL Cholesterol PTH Intact Urine pH Urine WBC (Auto) Urine Creatinine Urine Total Protein Fluid Total Protein Vancomycin Trough Rheumatoid Factor Complement C4 Miscellaneous Test Crossmatch 09/20/16 09/20/16 09/20/16 05:40 11:52 16:50 WBC RBC Hgb Hct MCV MCH MCHC RDW Plt Count Lymph % (Auto) Pope % (Auto) Lymph # Pope # Baso # Seg Neutrophils % Seg Neuts % (Manual) Lymphocytes % (Manual) Monocytes % (Manual) Eosinophils % (Manual) Basophils % (Manual) Nucleated RBC % Seg Neutrophils # Seg Neutrophils # Man Lymphocytes # (Manual) Monocytes # (Manual) Eosinophils # (Manual) Basophils # (Manual) PT INR Fibrinogen dRVVT Confirm Interp Factor V Activity POC ABG pH POC ABG pCO2 POC ABG pO2 ABG pO2 ABG HCO3 ABG Base Excess ABG Hemoglobin Oxyhemoglobin Sodium Potassium Chloride Carbon Dioxide BUN Creatinine Glucose POC Glucose 131 H 183 H 236 H Lactic Acid Calcium Phosphorus Magnesium Direct Bilirubin AST ALT Alkaline Phosphatase Lactate Dehydrogenase Troponin T C-Reactive Protein Total Protein Albumin Prealbumin Triglycerides Cholesterol LDL Cholesterol Direct HDL Cholesterol PTH Intact Urine pH Urine WBC (Auto) Urine Creatinine Urine Total Protein Fluid Total Protein Vancomycin Trough Rheumatoid Factor Complement C4 Miscellaneous Test Crossmatch 09/20/16 09/21/16 09/21/16 23:51 03:30 04:44 WBC RBC Hgb Hct MCV MCH MCHC RDW Plt Count Lymph % (Auto) Pope % (Auto) Lymph # Pope # Baso # Seg Neutrophils % Seg Neuts % (Manual) Lymphocytes % (Manual) Monocytes % (Manual) Eosinophils % (Manual) Basophils % (Manual) Nucleated RBC % Seg Neutrophils # Seg Neutrophils # Man Lymphocytes # (Manual) Monocytes # (Manual) Eosinophils # (Manual) Basophils # (Manual) PT INR Fibrinogen dRVVT Confirm Interp Factor V Activity POC ABG pH POC ABG pCO2 POC ABG pO2 ABG pO2 ABG HCO3 ABG Base Excess ABG Hemoglobin Oxyhemoglobin Sodium Potassium Chloride Carbon Dioxide BUN Creatinine Glucose POC Glucose 114 H 141 H Lactic Acid Calcium Phosphorus Magnesium 2.70 H Direct Bilirubin AST ALT Alkaline Phosphatase Lactate Dehydrogenase Troponin T C-Reactive Protein Total Protein Albumin Prealbumin Triglycerides Cholesterol LDL Cholesterol Direct HDL Cholesterol PTH Intact Urine pH Urine WBC (Auto) Urine Creatinine Urine Total Protein Fluid Total Protein Vancomycin Trough Rheumatoid Factor Complement C4 Miscellaneous Test Crossmatch 09/21/16 09/21/16 09/21/16 07:45 07:45 10:01 WBC 13.8 H RBC 2.94 L Hgb 7.5 L Hct 23.5 L MCV MCH 26 L MCHC RDW 21.2 H Plt Count Lymph % (Auto) 6.9 L Pope % (Auto) 9.4 H Lymph # 0.9 L Pope # 1.3 H Baso # Seg Neutrophils % 83.2 H Seg Neuts % (Manual) Lymphocytes % (Manual) Monocytes % (Manual) Eosinophils % (Manual) Basophils % (Manual) Nucleated RBC % Seg Neutrophils # 11.5 H Seg Neutrophils # Man Lymphocytes # (Manual) Monocytes # (Manual) Eosinophils # (Manual) Basophils # (Manual) PT INR Fibrinogen dRVVT Confirm Interp Factor V Activity POC ABG pH 7.308 L POC ABG pCO2 31.9 L POC ABG pO2 148 H ABG pO2 ABG HCO3 ABG Base Excess ABG Hemoglobin Oxyhemoglobin Sodium 147 H Potassium Chloride 114.2 H Carbon Dioxide 15 L BUN 120 H Creatinine 3.9 H Glucose 156 H POC Glucose Lactic Acid Calcium 8.2 L Phosphorus Magnesium Direct Bilirubin AST ALT Alkaline Phosphatase Lactate Dehydrogenase Troponin T C-Reactive Protein Total Protein Albumin Prealbumin Triglycerides Cholesterol LDL Cholesterol Direct HDL Cholesterol PTH Intact Urine pH Urine WBC (Auto) Urine Creatinine Urine Total Protein Fluid Total Protein Vancomycin Trough Rheumatoid Factor Complement C4 Miscellaneous Test Crossmatch 09/21/16 09/21/16 09/21/16 12:00 12:03 13:00 WBC RBC Hgb Hct MCV MCH MCHC RDW Plt Count Lymph % (Auto) Pope % (Auto) Lymph # Pope # Baso # Seg Neutrophils % Seg Neuts % (Manual) Lymphocytes % (Manual) Monocytes % (Manual) Eosinophils % (Manual) Basophils % (Manual) Nucleated RBC % Seg Neutrophils # Seg Neutrophils # Man Lymphocytes # (Manual) Monocytes # (Manual) Eosinophils # (Manual) Basophils # (Manual) PT INR Fibrinogen dRVVT Confirm Interp Factor V Activity POC ABG pH POC ABG pCO2 POC ABG pO2 ABG pO2 ABG HCO3 ABG Base Excess ABG Hemoglobin Oxyhemoglobin Sodium Potassium Chloride Carbon Dioxide BUN Creatinine Glucose POC Glucose 163 H Lactic Acid Calcium Phosphorus Magnesium Direct Bilirubin AST ALT Alkaline Phosphatase Lactate Dehydrogenase Troponin T C-Reactive Protein Total Protein Albumin Prealbumin Triglycerides Cholesterol LDL Cholesterol Direct HDL Cholesterol PTH Intact Urine pH Urine WBC (Auto) Urine Creatinine 54.8 H Urine Total Protein Fluid Total Protein Vancomycin Trough 2.3 L Rheumatoid Factor Complement C4 Miscellaneous Test Crossmatch 09/21/16 09/21/16 09/22/16 16:51 23:17 06:27 WBC RBC Hgb Hct MCV MCH MCHC RDW Plt Count Lymph % (Auto) Pope % (Auto) Lymph # Pope # Baso # Seg Neutrophils % Seg Neuts % (Manual) Lymphocytes % (Manual) Monocytes % (Manual) Eosinophils % (Manual) Basophils % (Manual) Nucleated RBC % Seg Neutrophils # Seg Neutrophils # Man Lymphocytes # (Manual) Monocytes # (Manual) Eosinophils # (Manual) Basophils # (Manual) PT INR Fibrinogen dRVVT Confirm Interp Factor V Activity POC ABG pH POC ABG pCO2 POC ABG pO2 ABG pO2 ABG HCO3 ABG Base Excess ABG Hemoglobin Oxyhemoglobin Sodium Potassium Chloride Carbon Dioxide BUN Creatinine Glucose POC Glucose 206 H 114 H 115 H Lactic Acid Calcium Phosphorus Magnesium Direct Bilirubin AST ALT Alkaline Phosphatase Lactate Dehydrogenase Troponin T C-Reactive Protein Total Protein Albumin Prealbumin Triglycerides Cholesterol LDL Cholesterol Direct HDL Cholesterol PTH Intact Urine pH Urine WBC (Auto) Urine Creatinine Urine Total Protein Fluid Total Protein Vancomycin Trough Rheumatoid Factor Complement C4 Miscellaneous Test Crossmatch 09/22/16 09/22/16 09/22/16 07:50 07:50 12:00 WBC 17.8 H RBC 3.04 L Hgb 8.0 L Hct 24.7 L MCV MCH 26 L MCHC RDW 21.6 H Plt Count Lymph % (Auto) Pope % (Auto) Lymph # Pope # Baso # Seg Neutrophils % Seg Neuts % (Manual) Lymphocytes % (Manual) Monocytes % (Manual) Eosinophils % (Manual) Basophils % (Manual) Nucleated RBC % Seg Neutrophils # Seg Neutrophils # Man Lymphocytes # (Manual) Monocytes # (Manual) Eosinophils # (Manual) Basophils # (Manual) PT INR Fibrinogen dRVVT Confirm Interp Factor V Activity POC ABG pH POC ABG pCO2 POC ABG pO2 ABG pO2 ABG HCO3 ABG Base Excess ABG Hemoglobin Oxyhemoglobin Sodium 150 H Potassium Chloride 118.2 H Carbon Dioxide 14 L BUN 111 H Creatinine 3.7 H Glucose 157 H POC Glucose 183 H Lactic Acid Calcium Phosphorus Magnesium Direct Bilirubin AST ALT Alkaline Phosphatase Lactate Dehydrogenase Troponin T C-Reactive Protein Total Protein Albumin Prealbumin Triglycerides Cholesterol LDL Cholesterol Direct HDL Cholesterol PTH Intact Urine pH Urine WBC (Auto) Urine Creatinine Urine Total Protein Fluid Total Protein Vancomycin Trough Rheumatoid Factor Complement C4 Miscellaneous Test Crossmatch 09/22/16 09/22/16 09/23/16 17:29 23:10 05:00 WBC 19.2 H RBC 3.13 L Hgb 8.0 L Hct 25.2 L MCV MCH 26 L MCHC RDW 22.1 H Plt Count Lymph % (Auto) Pope % (Auto) Lymph # Pope # Baso # Seg Neutrophils % Seg Neuts % (Manual) 92.0 H Lymphocytes % (Manual) 3.0 L Monocytes % (Manual) Eosinophils % (Manual) Basophils % (Manual) Nucleated RBC % Seg Neutrophils # Seg Neutrophils # Man 17.7 H Lymphocytes # (Manual) 0.6 L Monocytes # (Manual) Eosinophils # (Manual) Basophils # (Manual) PT INR Fibrinogen dRVVT Confirm Interp Factor V Activity POC ABG pH POC ABG pCO2 POC ABG pO2 ABG pO2 ABG HCO3 ABG Base Excess ABG Hemoglobin Oxyhemoglobin Sodium Potassium Chloride Carbon Dioxide BUN Creatinine Glucose POC Glucose 197 H 169 H Lactic Acid Calcium Phosphorus Magnesium Direct Bilirubin AST ALT Alkaline Phosphatase Lactate Dehydrogenase Troponin T C-Reactive Protein Total Protein Albumin Prealbumin Triglycerides Cholesterol LDL Cholesterol Direct HDL Cholesterol PTH Intact Urine pH Urine WBC (Auto) Urine Creatinine Urine Total Protein Fluid Total Protein Vancomycin Trough Rheumatoid Factor Complement C4 Miscellaneous Test Crossmatch 09/23/16 09/23/16 09/23/16 05:00 05:00 05:10 WBC RBC Hgb Hct MCV MCH MCHC RDW Plt Count Lymph % (Auto) Pope % (Auto) Lymph # Pope # Baso # Seg Neutrophils % Seg Neuts % (Manual) Lymphocytes % (Manual) Monocytes % (Manual) Eosinophils % (Manual) Basophils % (Manual) Nucleated RBC % Seg Neutrophils # Seg Neutrophils # Man Lymphocytes # (Manual) Monocytes # (Manual) Eosinophils # (Manual) Basophils # (Manual) PT INR Fibrinogen dRVVT Confirm Interp Factor V Activity POC ABG pH POC ABG pCO2 POC ABG pO2 ABG pO2 ABG HCO3 ABG Base Excess ABG Hemoglobin Oxyhemoglobin Sodium 147 H Potassium 3.2 L Chloride 115.7 H Carbon Dioxide 13 L BUN 111 H Creatinine 3.8 H Glucose 194 H POC Glucose 188 H Lactic Acid Calcium 7.3 L D Phosphorus Magnesium Direct Bilirubin AST ALT Alkaline Phosphatase Lactate Dehydrogenase Troponin T C-Reactive Protein 3.20 H Total Protein Albumin Prealbumin Triglycerides Cholesterol LDL Cholesterol Direct HDL Cholesterol PTH Intact Urine pH Urine WBC (Auto) Urine Creatinine Urine Total Protein Fluid Total Protein Vancomycin Trough Rheumatoid Factor Complement C4 Miscellaneous Test Crossmatch 09/23/16 09/23/16 09/23/16 11:37 12:29 18:01 WBC RBC Hgb Hct MCV MCH MCHC RDW Plt Count Lymph % (Auto) Pope % (Auto) Lymph # Pope # Baso # Seg Neutrophils % Seg Neuts % (Manual) Lymphocytes % (Manual) Monocytes % (Manual) Eosinophils % (Manual) Basophils % (Manual) Nucleated RBC % Seg Neutrophils # Seg Neutrophils # Man Lymphocytes # (Manual) Monocytes # (Manual) Eosinophils # (Manual) Basophils # (Manual) PT INR Fibrinogen dRVVT Confirm Interp Factor V Activity POC ABG pH POC ABG pCO2 18.9 L POC ABG pO2 143 H ABG pO2 ABG HCO3 ABG Base Excess ABG Hemoglobin Oxyhemoglobin Sodium Potassium Chloride Carbon Dioxide BUN Creatinine Glucose POC Glucose 153 H 108 H Lactic Acid Calcium Phosphorus Magnesium Direct Bilirubin AST ALT Alkaline Phosphatase Lactate Dehydrogenase Troponin T C-Reactive Protein Total Protein Albumin Prealbumin Triglycerides Cholesterol LDL Cholesterol Direct HDL Cholesterol PTH Intact Urine pH Urine WBC (Auto) Urine Creatinine Urine Total Protein Fluid Total Protein Vancomycin Trough Rheumatoid Factor Complement C4 Miscellaneous Test Crossmatch 09/23/16 09/23/16 09/24/16 21:19 23:43 05:16 WBC RBC Hgb Hct MCV MCH MCHC RDW Plt Count Lymph % (Auto) Pope % (Auto) Lymph # Pope # Baso # Seg Neutrophils % Seg Neuts % (Manual) Lymphocytes % (Manual) Monocytes % (Manual) Eosinophils % (Manual) Basophils % (Manual) Nucleated RBC % Seg Neutrophils # Seg Neutrophils # Man Lymphocytes # (Manual) Monocytes # (Manual) Eosinophils # (Manual) Basophils # (Manual) PT INR Fibrinogen dRVVT Confirm Interp Factor V Activity POC ABG pH POC ABG pCO2 17.3 L POC ABG pO2 112 H ABG pO2 ABG HCO3 ABG Base Excess ABG Hemoglobin Oxyhemoglobin Sodium Potassium Chloride Carbon Dioxide BUN Creatinine Glucose POC Glucose 143 H 164 H Lactic Acid Calcium Phosphorus Magnesium Direct Bilirubin AST ALT Alkaline Phosphatase Lactate Dehydrogenase Troponin T C-Reactive Protein Total Protein Albumin Prealbumin Triglycerides Cholesterol LDL Cholesterol Direct HDL Cholesterol PTH Intact Urine pH Urine WBC (Auto) Urine Creatinine Urine Total Protein Fluid Total Protein Vancomycin Trough Rheumatoid Factor Complement C4 Miscellaneous Test Crossmatch 09/24/16 09/24/16 09/24/16 05:21 11:58 17:06 WBC RBC Hgb Hct MCV MCH MCHC RDW Plt Count Lymph % (Auto) Pope % (Auto) Lymph # Pope # Baso # Seg Neutrophils % Seg Neuts % (Manual) Lymphocytes % (Manual) Monocytes % (Manual) Eosinophils % (Manual) Basophils % (Manual) Nucleated RBC % Seg Neutrophils # Seg Neutrophils # Man Lymphocytes # (Manual) Monocytes # (Manual) Eosinophils # (Manual) Basophils # (Manual) PT INR Fibrinogen dRVVT Confirm Interp Factor V Activity POC ABG pH POC ABG pCO2 POC ABG pO2 ABG pO2 ABG HCO3 ABG Base Excess ABG Hemoglobin Oxyhemoglobin Sodium Potassium Chloride Carbon Dioxide 10 L BUN 103 H Creatinine 4.3 H Glucose 163 H POC Glucose 173 H 167 H Lactic Acid Calcium 6.5 L Phosphorus Magnesium Direct Bilirubin AST ALT Alkaline Phosphatase Lactate Dehydrogenase Troponin T C-Reactive Protein Total Protein Albumin Prealbumin Triglycerides Cholesterol LDL Cholesterol Direct HDL Cholesterol PTH Intact Urine pH Urine WBC (Auto) Urine Creatinine Urine Total Protein Fluid Total Protein Vancomycin Trough Rheumatoid Factor Complement C4 Miscellaneous Test Crossmatch 09/24/16 09/24/16 09/24/16 20:15 21:02 23:48 WBC RBC Hgb Hct MCV MCH MCHC RDW Plt Count Lymph % (Auto) Pope % (Auto) Lymph # Pope # Baso # Seg Neutrophils % Seg Neuts % (Manual) Lymphocytes % (Manual) Monocytes % (Manual) Eosinophils % (Manual) Basophils % (Manual) Nucleated RBC % Seg Neutrophils # Seg Neutrophils # Man Lymphocytes # (Manual) Monocytes # (Manual) Eosinophils # (Manual) Basophils # (Manual) PT INR Fibrinogen dRVVT Confirm Interp Factor V Activity POC ABG pH 7.288 L POC ABG pCO2 30.2 L 21.5 L POC ABG pO2 32 L 39 L ABG pO2 ABG HCO3 ABG Base Excess ABG Hemoglobin Oxyhemoglobin Sodium Potassium Chloride Carbon Dioxide BUN Creatinine Glucose POC Glucose 109 H Lactic Acid Calcium Phosphorus Magnesium Direct Bilirubin AST ALT Alkaline Phosphatase Lactate Dehydrogenase Troponin T C-Reactive Protein Total Protein Albumin Prealbumin Triglycerides Cholesterol LDL Cholesterol Direct HDL Cholesterol PTH Intact Urine pH Urine WBC (Auto) Urine Creatinine Urine Total Protein Fluid Total Protein Vancomycin Trough Rheumatoid Factor Complement C4 Miscellaneous Test Crossmatch 09/25/16 09/25/16 09/25/16 04:20 04:20 04:20 WBC RBC 2.58 L Hgb 7.0 L Hct 21.0 L MCV MCH 27 L MCHC RDW 23.8 H Plt Count Lymph % (Auto) Pope % (Auto) Lymph # Pope # Baso # Seg Neutrophils % Seg Neuts % (Manual) Lymphocytes % (Manual) 12.0 L Monocytes % (Manual) Eosinophils % (Manual) 7.0 H Basophils % (Manual) 2.0 H Nucleated RBC % Seg Neutrophils # Seg Neutrophils # Man Lymphocytes # (Manual) 0.9 L Monocytes # (Manual) Eosinophils # (Manual) 0.5 H Basophils # (Manual) PT INR Fibrinogen dRVVT Confirm Interp Factor V Activity POC ABG pH POC ABG pCO2 POC ABG pO2 ABG pO2 ABG HCO3 ABG Base Excess ABG Hemoglobin Oxyhemoglobin Sodium Potassium Chloride Carbon Dioxide 15 L BUN 72 H Creatinine 3.8 H Glucose POC Glucose Lactic Acid Calcium 6.0 L Phosphorus 4.60 H Magnesium 1.60 L Direct Bilirubin AST ALT Alkaline Phosphatase Lactate Dehydrogenase Troponin T C-Reactive Protein Total Protein Albumin Prealbumin Triglycerides Cholesterol LDL Cholesterol Direct HDL Cholesterol PTH Intact Urine pH Urine WBC (Auto) Urine Creatinine Urine Total Protein Fluid Total Protein Vancomycin Trough Rheumatoid Factor Complement C4 Miscellaneous Test Crossmatch 09/25/16 09/25/16 09/25/16 04:57 08:02 10:30 WBC RBC Hgb Hct MCV MCH MCHC RDW Plt Count Lymph % (Auto) Pope % (Auto) Lymph # Pope # Baso # Seg Neutrophils % Seg Neuts % (Manual) Lymphocytes % (Manual) Monocytes % (Manual) Eosinophils % (Manual) Basophils % (Manual) Nucleated RBC % Seg Neutrophils # Seg Neutrophils # Man Lymphocytes # (Manual) Monocytes # (Manual) Eosinophils # (Manual) Basophils # (Manual) PT INR Fibrinogen dRVVT Confirm Interp Factor V Activity POC ABG pH POC ABG pCO2 24.7 L POC ABG pO2 152 H ABG pO2 ABG HCO3 ABG Base Excess ABG Hemoglobin Oxyhemoglobin Sodium Potassium Chloride Carbon Dioxide BUN Creatinine Glucose POC Glucose 113 H Lactic Acid Calcium Phosphorus Magnesium Direct Bilirubin AST ALT Alkaline Phosphatase Lactate Dehydrogenase Troponin T C-Reactive Protein Total Protein Albumin Prealbumin Triglycerides Cholesterol LDL Cholesterol Direct HDL Cholesterol PTH Intact Urine pH Urine WBC (Auto) Urine Creatinine Urine Total Protein Fluid Total Protein Vancomycin Trough Rheumatoid Factor Complement C4 Miscellaneous Test Crossmatch See Detail 09/25/16 09/25/16 09/25/16 12:05 17:44 23:47 WBC RBC Hgb Hct MCV MCH MCHC RDW Plt Count Lymph % (Auto) Pope % (Auto) Lymph # Pope # Baso # Seg Neutrophils % Seg Neuts % (Manual) Lymphocytes % (Manual) Monocytes % (Manual) Eosinophils % (Manual) Basophils % (Manual) Nucleated RBC % Seg Neutrophils # Seg Neutrophils # Man Lymphocytes # (Manual) Monocytes # (Manual) Eosinophils # (Manual) Basophils # (Manual) PT INR Fibrinogen dRVVT Confirm Interp Factor V Activity POC ABG pH POC ABG pCO2 POC ABG pO2 ABG pO2 ABG HCO3 ABG Base Excess ABG Hemoglobin Oxyhemoglobin Sodium Potassium Chloride Carbon Dioxide BUN Creatinine Glucose POC Glucose 117 H 119 H 150 H Lactic Acid Calcium Phosphorus Magnesium Direct Bilirubin AST ALT Alkaline Phosphatase Lactate Dehydrogenase Troponin T C-Reactive Protein Total Protein Albumin Prealbumin Triglycerides Cholesterol LDL Cholesterol Direct HDL Cholesterol PTH Intact Urine pH Urine WBC (Auto) Urine Creatinine Urine Total Protein Fluid Total Protein Vancomycin Trough Rheumatoid Factor Complement C4 Miscellaneous Test Crossmatch 09/26/16 09/26/16 09/26/16 04:25 04:25 04:25 WBC RBC 2.65 L Hgb 7.4 L Hct 21.6 L MCV MCH MCHC RDW 22.5 H Plt Count Lymph % (Auto) Pope % (Auto) Lymph # Pope # Baso # Seg Neutrophils % Seg Neuts % (Manual) Lymphocytes % (Manual) 6.0 L Monocytes % (Manual) Eosinophils % (Manual) 11.0 H Basophils % (Manual) Nucleated RBC % Seg Neutrophils # Seg Neutrophils # Man Lymphocytes # (Manual) 0.4 L Monocytes # (Manual) Eosinophils # (Manual) 0.6 H Basophils # (Manual) PT INR Fibrinogen dRVVT Confirm Interp Factor V Activity POC ABG pH POC ABG pCO2 POC ABG pO2 ABG pO2 ABG HCO3 ABG Base Excess ABG Hemoglobin Oxyhemoglobin Sodium Potassium Chloride 97.0 L Carbon Dioxide 19 L BUN 43 H Creatinine 2.6 H Glucose 130 H POC Glucose Lactic Acid 4.40 H* Calcium 6.7 L Phosphorus Magnesium Direct Bilirubin AST ALT Alkaline Phosphatase Lactate Dehydrogenase Troponin T C-Reactive Protein Total Protein Albumin Prealbumin Triglycerides Cholesterol LDL Cholesterol Direct HDL Cholesterol PTH Intact Urine pH Urine WBC (Auto) Urine Creatinine Urine Total Protein Fluid Total Protein Vancomycin Trough Rheumatoid Factor Complement C4 Miscellaneous Test Crossmatch 09/26/16 09/26/16 09/26/16 05:20 11:44 12:12 WBC RBC Hgb Hct MCV MCH MCHC RDW Plt Count Lymph % (Auto) Pope % (Auto) Lymph # Pope # Baso # Seg Neutrophils % Seg Neuts % (Manual) Lymphocytes % (Manual) Monocytes % (Manual) Eosinophils % (Manual) Basophils % (Manual) Nucleated RBC % Seg Neutrophils # Seg Neutrophils # Man Lymphocytes # (Manual) Monocytes # (Manual) Eosinophils # (Manual) Basophils # (Manual) PT INR Fibrinogen dRVVT Confirm Interp Factor V Activity POC ABG pH POC ABG pCO2 27.0 L POC ABG pO2 69 L ABG pO2 ABG HCO3 ABG Base Excess ABG Hemoglobin Oxyhemoglobin Sodium Potassium Chloride Carbon Dioxide BUN Creatinine Glucose POC Glucose 121 H 128 H Lactic Acid Calcium Phosphorus Magnesium Direct Bilirubin AST ALT Alkaline Phosphatase Lactate Dehydrogenase Troponin T C-Reactive Protein Total Protein Albumin Prealbumin Triglycerides Cholesterol LDL Cholesterol Direct HDL Cholesterol PTH Intact Urine pH Urine WBC (Auto) Urine Creatinine Urine Total Protein Fluid Total Protein Vancomycin Trough Rheumatoid Factor Complement C4 Miscellaneous Test Crossmatch 09/26/16 09/26/16 09/27/16 18:31 23:40 08:20 WBC RBC Hgb Hct MCV MCH MCHC RDW Plt Count Lymph % (Auto) Pope % (Auto) Lymph # Pope # Baso # Seg Neutrophils % Seg Neuts % (Manual) Lymphocytes % (Manual) Monocytes % (Manual) Eosinophils % (Manual) Basophils % (Manual) Nucleated RBC % Seg Neutrophils # Seg Neutrophils # Man Lymphocytes # (Manual) Monocytes # (Manual) Eosinophils # (Manual) Basophils # (Manual) PT INR Fibrinogen dRVVT Confirm Interp Factor V Activity POC ABG pH POC ABG pCO2 POC ABG pO2 ABG pO2 ABG HCO3 ABG Base Excess ABG Hemoglobin Oxyhemoglobin Sodium Potassium Chloride Carbon Dioxide BUN Creatinine Glucose POC Glucose 120 H 133 H Lactic Acid 4.10 H* Calcium Phosphorus Magnesium Direct Bilirubin AST ALT Alkaline Phosphatase Lactate Dehydrogenase Troponin T C-Reactive Protein Total Protein Albumin Prealbumin Triglycerides Cholesterol LDL Cholesterol Direct HDL Cholesterol PTH Intact Urine pH Urine WBC (Auto) Urine Creatinine Urine Total Protein Fluid Total Protein Vancomycin Trough Rheumatoid Factor Complement C4 Miscellaneous Test Crossmatch 09/27/16 09/27/16 09/27/16 11:23 15:00 18:15 WBC RBC Hgb Hct MCV MCH MCHC RDW Plt Count Lymph % (Auto) Pope % (Auto) Lymph # Pope # Baso # Seg Neutrophils % Seg Neuts % (Manual) Lymphocytes % (Manual) Monocytes % (Manual) Eosinophils % (Manual) Basophils % (Manual) Nucleated RBC % Seg Neutrophils # Seg Neutrophils # Man Lymphocytes # (Manual) Monocytes # (Manual) Eosinophils # (Manual) Basophils # (Manual) PT INR Fibrinogen dRVVT Confirm Interp Factor V Activity POC ABG pH 7.459 H POC ABG pCO2 27.1 L POC ABG pO2 140 H ABG pO2 ABG HCO3 ABG Base Excess ABG Hemoglobin Oxyhemoglobin Sodium Potassium Chloride Carbon Dioxide BUN Creatinine Glucose POC Glucose 114 H 127 H Lactic Acid Calcium Phosphorus Magnesium Direct Bilirubin AST ALT Alkaline Phosphatase Lactate Dehydrogenase Troponin T C-Reactive Protein Total Protein Albumin Prealbumin Triglycerides Cholesterol LDL Cholesterol Direct HDL Cholesterol PTH Intact Urine pH Urine WBC (Auto) Urine Creatinine Urine Total Protein Fluid Total Protein Vancomycin Trough Rheumatoid Factor Complement C4 Miscellaneous Test Crossmatch 09/27/16 09/27/16 09/28/16 Unknown Unknown 03:45 WBC RBC 2.49 L Hgb 6.8 L Hct 20.7 L MCV MCH 27 L MCHC RDW 22.1 H Plt Count Lymph % (Auto) Pope % (Auto) Lymph # Pope # Baso # Seg Neutrophils % Seg Neuts % (Manual) 32.0 L Lymphocytes % (Manual) 12.0 L Monocytes % (Manual) 11.0 H Eosinophils % (Manual) 10.0 H Basophils % (Manual) Nucleated RBC % Seg Neutrophils # Seg Neutrophils # Man Lymphocytes # (Manual) 1.0 L Monocytes # (Manual) 0.9 H Eosinophils # (Manual) 0.8 H Basophils # (Manual) PT INR Fibrinogen dRVVT Confirm Interp Factor V Activity POC ABG pH POC ABG pCO2 POC ABG pO2 ABG pO2 ABG HCO3 ABG Base Excess ABG Hemoglobin Oxyhemoglobin Sodium 135 L 135 L Potassium 3.5 L Chloride 93.6 L 94.4 L Carbon Dioxide 17 L 21 L BUN 45 H 28 H Creatinine 3.3 H 2.5 H Glucose 106 H POC Glucose Lactic Acid Calcium 7.3 L 7.1 L Phosphorus Magnesium Direct Bilirubin AST ALT Alkaline Phosphatase Lactate Dehydrogenase Troponin T C-Reactive Protein Total Protein Albumin Prealbumin Triglycerides Cholesterol LDL Cholesterol Direct HDL Cholesterol PTH Intact Urine pH Urine WBC (Auto) Urine Creatinine Urine Total Protein Fluid Total Protein Vancomycin Trough Rheumatoid Factor Complement C4 Miscellaneous Test Crossmatch 09/28/16 09/28/16 09/28/16 03:45 07:25 11:58 WBC 13.3 H RBC 3.01 L Hgb 8.4 L Hct 25.0 L MCV MCH MCHC RDW 20.5 H Plt Count 128 L Lymph % (Auto) Pope % (Auto) Lymph # Pope # Baso # Seg Neutrophils % Seg Neuts % (Manual) Lymphocytes % (Manual) 7.0 L Monocytes % (Manual) Eosinophils % (Manual) 6.0 H Basophils % (Manual) Nucleated RBC % Seg Neutrophils # Seg Neutrophils # Man Lymphocytes # (Manual) 0.9 L Monocytes # (Manual) Eosinophils # (Manual) 0.8 H Basophils # (Manual) PT INR Fibrinogen dRVVT Confirm Interp Factor V Activity POC ABG pH POC ABG pCO2 POC ABG pO2 ABG pO2 ABG HCO3 ABG Base Excess ABG Hemoglobin Oxyhemoglobin Sodium Potassium Chloride Carbon Dioxide BUN Creatinine Glucose POC Glucose 121 H Lactic Acid 4.50 H* Calcium Phosphorus Magnesium Direct Bilirubin AST ALT Alkaline Phosphatase Lactate Dehydrogenase Troponin T C-Reactive Protein Total Protein Albumin Prealbumin Triglycerides Cholesterol LDL Cholesterol Direct HDL Cholesterol PTH Intact Urine pH Urine WBC (Auto) Urine Creatinine Urine Total Protein Fluid Total Protein Vancomycin Trough Rheumatoid Factor Complement C4 Miscellaneous Test Crossmatch 09/29/16 09/29/16 09/29/16 06:45 06:45 06:45 WBC 14.9 H RBC 2.74 L Hgb 7.6 L Hct 23.2 L MCV MCH MCHC RDW 20.5 H Plt Count 81 L Lymph % (Auto) Pope % (Auto) Lymph # Pope # Baso # Seg Neutrophils % Seg Neuts % (Manual) 81.0 H Lymphocytes % (Manual) 4.0 L Monocytes % (Manual) Eosinophils % (Manual) Basophils % (Manual) Nucleated RBC % Seg Neutrophils # Seg Neutrophils # Man 12.1 H Lymphocytes # (Manual) 0.6 L Monocytes # (Manual) Eosinophils # (Manual) Basophils # (Manual) PT INR Fibrinogen dRVVT Confirm Interp Factor V Activity POC ABG pH POC ABG pCO2 POC ABG pO2 ABG pO2 ABG HCO3 ABG Base Excess ABG Hemoglobin Oxyhemoglobin Sodium 133 L Potassium 3.4 L Chloride 92.5 L Carbon Dioxide 21 L BUN 33 H Creatinine 3.0 H Glucose POC Glucose Lactic Acid Calcium 6.6 L Phosphorus Magnesium 1.40 L Direct Bilirubin 0.9 H AST ALT Alkaline Phosphatase Lactate Dehydrogenase Troponin T C-Reactive Protein Total Protein 4.3 L Albumin 1.3 L Prealbumin Triglycerides Cholesterol LDL Cholesterol Direct HDL Cholesterol PTH Intact Urine pH Urine WBC (Auto) Urine Creatinine Urine Total Protein Fluid Total Protein Vancomycin Trough Rheumatoid Factor Complement C4 Miscellaneous Test Crossmatch 09/29/16 09/29/16 09/30/16 17:52 20:12 00:07 WBC RBC Hgb Hct MCV MCH MCHC RDW Plt Count Lymph % (Auto) Pope % (Auto) Lymph # Pope # Baso # Seg Neutrophils % Seg Neuts % (Manual) Lymphocytes % (Manual) Monocytes % (Manual) Eosinophils % (Manual) Basophils % (Manual) Nucleated RBC % Seg Neutrophils # Seg Neutrophils # Man Lymphocytes # (Manual) Monocytes # (Manual) Eosinophils # (Manual) Basophils # (Manual) PT INR Fibrinogen dRVVT Confirm Interp Factor V Activity POC ABG pH POC ABG pCO2 POC ABG pO2 ABG pO2 ABG HCO3 ABG Base Excess ABG Hemoglobin Oxyhemoglobin Sodium Potassium Chloride Carbon Dioxide BUN Creatinine Glucose POC Glucose 50 L 51 L Lactic Acid Calcium Phosphorus Magnesium Direct Bilirubin AST ALT Alkaline Phosphatase Lactate Dehydrogenase Troponin T 0.204 H* C-Reactive Protein Total Protein Albumin Prealbumin Triglycerides Cholesterol 31 L LDL Cholesterol Direct 4 L HDL Cholesterol 3 L PTH Intact Urine pH Urine WBC (Auto) Urine Creatinine Urine Total Protein Fluid Total Protein Vancomycin Trough Rheumatoid Factor Complement C4 Miscellaneous Test Crossmatch 09/30/16 09/30/16 09/30/16 01:30 05:15 06:10 WBC RBC Hgb Hct MCV MCH MCHC RDW Plt Count Lymph % (Auto) Pope % (Auto) Lymph # Pope # Baso # Seg Neutrophils % Seg Neuts % (Manual) Lymphocytes % (Manual) Monocytes % (Manual) Eosinophils % (Manual) Basophils % (Manual) Nucleated RBC % Seg Neutrophils # Seg Neutrophils # Man Lymphocytes # (Manual) Monocytes # (Manual) Eosinophils # (Manual) Basophils # (Manual) PT INR Fibrinogen dRVVT Confirm Interp Factor V Activity POC ABG pH POC ABG pCO2 POC ABG pO2 ABG pO2 ABG HCO3 ABG Base Excess ABG Hemoglobin Oxyhemoglobin Sodium 133 L Potassium 3.2 L Chloride 93.2 L Carbon Dioxide 19 L BUN 36 H Creatinine 3.2 H Glucose 104 H POC Glucose 167 H 146 H Lactic Acid Calcium 6.4 L Phosphorus Magnesium 1.60 L Direct Bilirubin AST ALT Alkaline Phosphatase Lactate Dehydrogenase Troponin T C-Reactive Protein Total Protein Albumin Prealbumin Triglycerides Cholesterol LDL Cholesterol Direct HDL Cholesterol PTH Intact Urine pH Urine WBC (Auto) Urine Creatinine Urine Total Protein Fluid Total Protein Vancomycin Trough Rheumatoid Factor Complement C4 Miscellaneous Test Crossmatch 09/30/16 09/30/16 09/30/16 11:26 13:39 18:38 WBC RBC Hgb Hct MCV MCH MCHC RDW Plt Count Lymph % (Auto) Pope % (Auto) Lymph # Pope # Baso # Seg Neutrophils % Seg Neuts % (Manual) Lymphocytes % (Manual) Monocytes % (Manual) Eosinophils % (Manual) Basophils % (Manual) Nucleated RBC % Seg Neutrophils # Seg Neutrophils # Man Lymphocytes # (Manual) Monocytes # (Manual) Eosinophils # (Manual) Basophils # (Manual) PT INR Fibrinogen dRVVT Confirm Interp Factor V Activity POC ABG pH 7.479 H POC ABG pCO2 29.8 L POC ABG pO2 117 H ABG pO2 ABG HCO3 ABG Base Excess ABG Hemoglobin Oxyhemoglobin Sodium Potassium Chloride Carbon Dioxide BUN Creatinine Glucose POC Glucose 140 H 122 H Lactic Acid Calcium Phosphorus Magnesium Direct Bilirubin AST ALT Alkaline Phosphatase Lactate Dehydrogenase Troponin T C-Reactive Protein Total Protein Albumin Prealbumin Triglycerides Cholesterol LDL Cholesterol Direct HDL Cholesterol PTH Intact Urine pH Urine WBC (Auto) Urine Creatinine Urine Total Protein Fluid Total Protein Vancomycin Trough Rheumatoid Factor Complement C4 Miscellaneous Test Crossmatch 10/01/16 10/01/16 10/01/16 06:00 06:00 12:37 WBC 12.6 H RBC 2.75 L Hgb 7.3 L Hct 23.3 L MCV MCH 27 L MCHC RDW 20.6 H Plt Count 72 L Lymph % (Auto) Pope % (Auto) Lymph # Pope # Baso # Seg Neutrophils % Seg Neuts % (Manual) 31.0 L Lymphocytes % (Manual) 8.0 L Monocytes % (Manual) Eosinophils % (Manual) Basophils % (Manual) Nucleated RBC % 3.0 H Seg Neutrophils # Seg Neutrophils # Man Lymphocytes # (Manual) 1.0 L Monocytes # (Manual) Eosinophils # (Manual) Basophils # (Manual) PT INR Fibrinogen dRVVT Confirm Interp Factor V Activity POC ABG pH POC ABG pCO2 POC ABG pO2 ABG pO2 ABG HCO3 ABG Base Excess ABG Hemoglobin Oxyhemoglobin Sodium 127 L Potassium Chloride 86.8 L Carbon Dioxide 20 L BUN 42 H Creatinine 3.5 H Glucose POC Glucose 65 L Lactic Acid Calcium 7.0 L Phosphorus Magnesium Direct Bilirubin AST ALT Alkaline Phosphatase Lactate Dehydrogenase Troponin T C-Reactive Protein Total Protein Albumin Prealbumin Triglycerides Cholesterol LDL Cholesterol Direct HDL Cholesterol PTH Intact Urine pH Urine WBC (Auto) Urine Creatinine Urine Total Protein Fluid Total Protein Vancomycin Trough Rheumatoid Factor Complement C4 Miscellaneous Test Crossmatch 10/01/16 10/01/16 10/02/16 17:39 23:32 00:59 WBC RBC Hgb Hct MCV MCH MCHC RDW Plt Count Lymph % (Auto) Pope % (Auto) Lymph # Pope # Baso # Seg Neutrophils % Seg Neuts % (Manual) Lymphocytes % (Manual) Monocytes % (Manual) Eosinophils % (Manual) Basophils % (Manual) Nucleated RBC % Seg Neutrophils # Seg Neutrophils # Man Lymphocytes # (Manual) Monocytes # (Manual) Eosinophils # (Manual) Basophils # (Manual) PT INR Fibrinogen dRVVT Confirm Interp Factor V Activity POC ABG pH POC ABG pCO2 POC ABG pO2 ABG pO2 ABG HCO3 ABG Base Excess ABG Hemoglobin Oxyhemoglobin Sodium Potassium Chloride Carbon Dioxide BUN Creatinine Glucose POC Glucose 107 H 52 L 145 H Lactic Acid Calcium Phosphorus Magnesium Direct Bilirubin AST ALT Alkaline Phosphatase Lactate Dehydrogenase Troponin T C-Reactive Protein Total Protein Albumin Prealbumin Triglycerides Cholesterol LDL Cholesterol Direct HDL Cholesterol PTH Intact Urine pH Urine WBC (Auto) Urine Creatinine Urine Total Protein Fluid Total Protein Vancomycin Trough Rheumatoid Factor Complement C4 Miscellaneous Test Crossmatch 10/02/16 10/02/16 10/02/16 10:30 10:50 10:50 WBC 14.7 H RBC 2.76 L Hgb 7.4 L Hct 23.6 L MCV MCH 27 L MCHC RDW 20.2 H Plt Count 79 L Lymph % (Auto) Pope % (Auto) Lymph # Pope # Baso # Seg Neutrophils % Seg Neuts % (Manual) 86.0 H Lymphocytes % (Manual) 6.0 L Monocytes % (Manual) Eosinophils % (Manual) Basophils % (Manual) Nucleated RBC % Seg Neutrophils # Seg Neutrophils # Man 12.6 H Lymphocytes # (Manual) 0.9 L Monocytes # (Manual) Eosinophils # (Manual) Basophils # (Manual) PT INR Fibrinogen dRVVT Confirm Interp Factor V Activity POC ABG pH 7.486 H POC ABG pCO2 30.1 L POC ABG pO2 108 H ABG pO2 ABG HCO3 ABG Base Excess ABG Hemoglobin Oxyhemoglobin Sodium 131 L Potassium 3.4 L Chloride 89.9 L Carbon Dioxide BUN 26 H Creatinine 2.6 H Glucose POC Glucose Lactic Acid Calcium 7.0 L Phosphorus Magnesium Direct Bilirubin AST ALT Alkaline Phosphatase Lactate Dehydrogenase Troponin T C-Reactive Protein Total Protein Albumin Prealbumin Triglycerides Cholesterol LDL Cholesterol Direct HDL Cholesterol PTH Intact Urine pH Urine WBC (Auto) Urine Creatinine Urine Total Protein Fluid Total Protein Vancomycin Trough Rheumatoid Factor Complement C4 Miscellaneous Test Crossmatch 10/02/16 10/03/16 10/03/16 23:45 00:45 05:10 WBC 12.9 H RBC 2.77 L Hgb 7.6 L Hct 23.7 L MCV MCH 27 L MCHC RDW 19.7 H Plt Count 89 L Lymph % (Auto) Pope % (Auto) Lymph # Pope # Baso # Seg Neutrophils % Seg Neuts % (Manual) Lymphocytes % (Manual) 8.0 L Monocytes % (Manual) Eosinophils % (Manual) Basophils % (Manual) Nucleated RBC % Seg Neutrophils # 11.9 H Seg Neutrophils # Man Lymphocytes # (Manual) 1.0 L Monocytes # (Manual) Eosinophils # (Manual) Basophils # (Manual) PT INR Fibrinogen dRVVT Confirm Interp Factor V Activity POC ABG pH POC ABG pCO2 POC ABG pO2 ABG pO2 ABG HCO3 ABG Base Excess ABG Hemoglobin Oxyhemoglobin Sodium Potassium Chloride Carbon Dioxide BUN Creatinine Glucose POC Glucose 55 L 199 H Lactic Acid Calcium Phosphorus Magnesium Direct Bilirubin AST ALT Alkaline Phosphatase Lactate Dehydrogenase Troponin T C-Reactive Protein Total Protein Albumin Prealbumin Triglycerides Cholesterol LDL Cholesterol Direct HDL Cholesterol PTH Intact Urine pH Urine WBC (Auto) Urine Creatinine Urine Total Protein Fluid Total Protein Vancomycin Trough Rheumatoid Factor Complement C4 Miscellaneous Test Crossmatch 10/03/16 10/03/16 10/03/16 05:10 12:14 13:18 WBC RBC Hgb Hct MCV MCH MCHC RDW Plt Count Lymph % (Auto) Pope % (Auto) Lymph # Pope # Baso # Seg Neutrophils % Seg Neuts % (Manual) Lymphocytes % (Manual) Monocytes % (Manual) Eosinophils % (Manual) Basophils % (Manual) Nucleated RBC % Seg Neutrophils # Seg Neutrophils # Man Lymphocytes # (Manual) Monocytes # (Manual) Eosinophils # (Manual) Basophils # (Manual) PT INR Fibrinogen dRVVT Confirm Interp Factor V Activity POC ABG pH POC ABG pCO2 POC ABG pO2 ABG pO2 ABG HCO3 ABG Base Excess ABG Hemoglobin Oxyhemoglobin Sodium 129 L Potassium 3.3 L Chloride 88.8 L Carbon Dioxide 20 L BUN 29 H Creatinine 2.8 H Glucose POC Glucose 68 L 127 H Lactic Acid Calcium 7.2 L Phosphorus Magnesium Direct Bilirubin AST ALT Alkaline Phosphatase Lactate Dehydrogenase Troponin T C-Reactive Protein Total Protein Albumin Prealbumin Triglycerides Cholesterol LDL Cholesterol Direct HDL Cholesterol PTH Intact Urine pH Urine WBC (Auto) Urine Creatinine Urine Total Protein Fluid Total Protein Vancomycin Trough Rheumatoid Factor Complement C4 Miscellaneous Test Crossmatch 10/03/16 10/03/16 10/03/16 14:42 18:21 19:09 WBC RBC Hgb Hct MCV MCH MCHC RDW Plt Count Lymph % (Auto) Pope % (Auto) Lymph # Pope # Baso # Seg Neutrophils % Seg Neuts % (Manual) Lymphocytes % (Manual) Monocytes % (Manual) Eosinophils % (Manual) Basophils % (Manual) Nucleated RBC % Seg Neutrophils # Seg Neutrophils # Man Lymphocytes # (Manual) Monocytes # (Manual) Eosinophils # (Manual) Basophils # (Manual) PT INR Fibrinogen dRVVT Confirm Interp Factor V Activity POC ABG pH 7.499 H POC ABG pCO2 28.4 L POC ABG pO2 44 L ABG pO2 ABG HCO3 ABG Base Excess ABG Hemoglobin Oxyhemoglobin Sodium Potassium Chloride Carbon Dioxide BUN Creatinine Glucose POC Glucose 64 L 205 H Lactic Acid Calcium Phosphorus Magnesium Direct Bilirubin AST ALT Alkaline Phosphatase Lactate Dehydrogenase Troponin T C-Reactive Protein Total Protein Albumin Prealbumin Triglycerides Cholesterol LDL Cholesterol Direct HDL Cholesterol PTH Intact Urine pH Urine WBC (Auto) Urine Creatinine Urine Total Protein Fluid Total Protein Vancomycin Trough Rheumatoid Factor Complement C4 Miscellaneous Test Crossmatch 10/03/16 10/04/16 10/04/16 23:33 04:18 06:30 WBC RBC 2.54 L Hgb 7.1 L Hct 21.7 L MCV MCH MCHC RDW 19.5 H Plt Count 76 L Lymph % (Auto) Pope % (Auto) Lymph # Pope # Baso # Seg Neutrophils % Seg Neuts % (Manual) 88.0 H Lymphocytes % (Manual) 6.0 L Monocytes % (Manual) Eosinophils % (Manual) Basophils % (Manual) Nucleated RBC % Seg Neutrophils # Seg Neutrophils # Man 8.8 H Lymphocytes # (Manual) 0.6 L Monocytes # (Manual) Eosinophils # (Manual) Basophils # (Manual) PT INR Fibrinogen dRVVT Confirm Interp Factor V Activity POC ABG pH 7.461 H POC ABG pCO2 33.6 L POC ABG pO2 211 H ABG pO2 ABG HCO3 ABG Base Excess ABG Hemoglobin Oxyhemoglobin Sodium Potassium Chloride Carbon Dioxide BUN Creatinine Glucose POC Glucose 136 H Lactic Acid Calcium Phosphorus Magnesium Direct Bilirubin AST ALT Alkaline Phosphatase Lactate Dehydrogenase Troponin T C-Reactive Protein Total Protein Albumin Prealbumin Triglycerides Cholesterol LDL Cholesterol Direct HDL Cholesterol PTH Intact Urine pH Urine WBC (Auto) Urine Creatinine Urine Total Protein Fluid Total Protein Vancomycin Trough Rheumatoid Factor Complement C4 Miscellaneous Test Crossmatch 10/04/16 10/04/16 10/04/16 06:30 11:45 17:54 WBC RBC Hgb Hct MCV MCH MCHC RDW Plt Count Lymph % (Auto) Pope % (Auto) Lymph # Pope # Baso # Seg Neutrophils % Seg Neuts % (Manual) Lymphocytes % (Manual) Monocytes % (Manual) Eosinophils % (Manual) Basophils % (Manual) Nucleated RBC % Seg Neutrophils # Seg Neutrophils # Man Lymphocytes # (Manual) Monocytes # (Manual) Eosinophils # (Manual) Basophils # (Manual) PT INR Fibrinogen dRVVT Confirm Interp Factor V Activity POC ABG pH POC ABG pCO2 POC ABG pO2 ABG pO2 ABG HCO3 ABG Base Excess ABG Hemoglobin Oxyhemoglobin Sodium 128 L Potassium Chloride 87.4 L Carbon Dioxide 20 L BUN 34 H Creatinine 2.9 H Glucose 127 H POC Glucose 158 H 160 H Lactic Acid Calcium 7.4 L Phosphorus Magnesium Direct Bilirubin AST ALT Alkaline Phosphatase Lactate Dehydrogenase Troponin T C-Reactive Protein Total Protein Albumin Prealbumin Triglycerides Cholesterol LDL Cholesterol Direct HDL Cholesterol PTH Intact Urine pH Urine WBC (Auto) Urine Creatinine Urine Total Protein Fluid Total Protein Vancomycin Trough Rheumatoid Factor Complement C4 Miscellaneous Test Crossmatch 10/04/16 10/05/16 10/05/16 23:25 04:30 05:00 WBC RBC 2.64 L Hgb 7.5 L Hct 22.6 L MCV MCH MCHC RDW 19.3 H Plt Count 80 L Lymph % (Auto) Pope % (Auto) Lymph # Pope # Baso # Seg Neutrophils % Seg Neuts % (Manual) Lymphocytes % (Manual) 12.0 L Monocytes % (Manual) Eosinophils % (Manual) Basophils % (Manual) Nucleated RBC % Seg Neutrophils # Seg Neutrophils # Man Lymphocytes # (Manual) Monocytes # (Manual) Eosinophils # (Manual) Basophils # (Manual) PT INR Fibrinogen dRVVT Confirm Interp Factor V Activity POC ABG pH 7.475 H POC ABG pCO2 33.3 L POC ABG pO2 140 H ABG pO2 ABG HCO3 ABG Base Excess ABG Hemoglobin Oxyhemoglobin Sodium Potassium Chloride Carbon Dioxide BUN Creatinine Glucose POC Glucose 141 H Lactic Acid Calcium Phosphorus Magnesium Direct Bilirubin AST ALT Alkaline Phosphatase Lactate Dehydrogenase Troponin T C-Reactive Protein Total Protein Albumin Prealbumin Triglycerides Cholesterol LDL Cholesterol Direct HDL Cholesterol PTH Intact Urine pH Urine WBC (Auto) Urine Creatinine Urine Total Protein Fluid Total Protein Vancomycin Trough Rheumatoid Factor Complement C4 Miscellaneous Test Crossmatch 10/05/16 10/05/16 10/05/16 05:00 05:09 12:58 WBC RBC Hgb Hct MCV MCH MCHC RDW Plt Count Lymph % (Auto) Pope % (Auto) Lymph # Pope # Baso # Seg Neutrophils % Seg Neuts % (Manual) Lymphocytes % (Manual) Monocytes % (Manual) Eosinophils % (Manual) Basophils % (Manual) Nucleated RBC % Seg Neutrophils # Seg Neutrophils # Man Lymphocytes # (Manual) Monocytes # (Manual) Eosinophils # (Manual) Basophils # (Manual) PT INR Fibrinogen dRVVT Confirm Interp Factor V Activity POC ABG pH POC ABG pCO2 POC ABG pO2 ABG pO2 ABG HCO3 ABG Base Excess ABG Hemoglobin Oxyhemoglobin Sodium 131 L Potassium Chloride 94.0 L Carbon Dioxide 20 L BUN 22 H Creatinine 2.0 H Glucose 123 H POC Glucose 166 H 179 H Lactic Acid Calcium 7.7 L Phosphorus 2.20 L D Magnesium Direct Bilirubin AST ALT Alkaline Phosphatase Lactate Dehydrogenase Troponin T C-Reactive Protein Total Protein Albumin Prealbumin Triglycerides Cholesterol LDL Cholesterol Direct HDL Cholesterol PTH Intact Urine pH Urine WBC (Auto) Urine Creatinine Urine Total Protein Fluid Total Protein Vancomycin Trough Rheumatoid Factor Complement C4 Miscellaneous Test Crossmatch 10/05/16 10/05/16 10/05/16 15:50 18:53 23:12 WBC RBC Hgb Hct MCV MCH MCHC RDW Plt Count Lymph % (Auto) Pope % (Auto) Lymph # Pope # Baso # Seg Neutrophils % Seg Neuts % (Manual) Lymphocytes % (Manual) Monocytes % (Manual) Eosinophils % (Manual) Basophils % (Manual) Nucleated RBC % Seg Neutrophils # Seg Neutrophils # Man Lymphocytes # (Manual) Monocytes # (Manual) Eosinophils # (Manual) Basophils # (Manual) PT INR Fibrinogen dRVVT Confirm Interp Factor V Activity POC ABG pH POC ABG pCO2 POC ABG pO2 ABG pO2 ABG HCO3 ABG Base Excess ABG Hemoglobin Oxyhemoglobin Sodium Potassium Chloride Carbon Dioxide BUN Creatinine Glucose POC Glucose 150 H 164 H Lactic Acid Calcium Phosphorus Magnesium Direct Bilirubin AST ALT Alkaline Phosphatase Lactate Dehydrogenase Troponin T C-Reactive Protein Total Protein Albumin Prealbumin Triglycerides Cholesterol LDL Cholesterol Direct HDL Cholesterol PTH Intact Urine pH Urine WBC (Auto) Urine Creatinine Urine Total Protein Fluid Total Protein Vancomycin Trough Rheumatoid Factor Complement C4 Miscellaneous Test Crossmatch See Detail 10/06/16 10/06/16 10/06/16 03:50 03:50 04:53 WBC RBC 3.00 L Hgb 8.6 L Hct 25.8 L MCV MCH MCHC RDW 17.9 H Plt Count 65 L Lymph % (Auto) Pope % (Auto) Lymph # Pope # Baso # Seg Neutrophils % Seg Neuts % (Manual) 30.0 L Lymphocytes % (Manual) 5.0 L Monocytes % (Manual) Eosinophils % (Manual) Basophils % (Manual) Nucleated RBC % Seg Neutrophils # Seg Neutrophils # Man Lymphocytes # (Manual) 0.4 L Monocytes # (Manual) Eosinophils # (Manual) Basophils # (Manual) PT INR Fibrinogen dRVVT Confirm Interp Factor V Activity POC ABG pH 7.310 L POC ABG pCO2 49.0 H POC ABG pO2 ABG pO2 ABG HCO3 ABG Base Excess ABG Hemoglobin Oxyhemoglobin Sodium 133 L Potassium Chloride 95.9 L Carbon Dioxide BUN 26 H Creatinine 2.0 H Glucose 116 H POC Glucose Lactic Acid Calcium 7.8 L Phosphorus Magnesium Direct Bilirubin AST ALT Alkaline Phosphatase Lactate Dehydrogenase Troponin T C-Reactive Protein Total Protein Albumin Prealbumin Triglycerides Cholesterol LDL Cholesterol Direct HDL Cholesterol PTH Intact Urine pH Urine WBC (Auto) Urine Creatinine Urine Total Protein Fluid Total Protein Vancomycin Trough Rheumatoid Factor Complement C4 Miscellaneous Test Crossmatch 10/06/16 10/06/16 10/06/16 05:23 11:52 18:34 WBC RBC Hgb Hct MCV MCH MCHC RDW Plt Count Lymph % (Auto) Pope % (Auto) Lymph # Pope # Baso # Seg Neutrophils % Seg Neuts % (Manual) Lymphocytes % (Manual) Monocytes % (Manual) Eosinophils % (Manual) Basophils % (Manual) Nucleated RBC % Seg Neutrophils # Seg Neutrophils # Man Lymphocytes # (Manual) Monocytes # (Manual) Eosinophils # (Manual) Basophils # (Manual) PT INR Fibrinogen dRVVT Confirm Interp Factor V Activity POC ABG pH POC ABG pCO2 POC ABG pO2 ABG pO2 ABG HCO3 ABG Base Excess ABG Hemoglobin Oxyhemoglobin Sodium Potassium Chloride Carbon Dioxide BUN Creatinine Glucose POC Glucose 126 H 116 H 129 H Lactic Acid Calcium Phosphorus Magnesium Direct Bilirubin AST ALT Alkaline Phosphatase Lactate Dehydrogenase Troponin T C-Reactive Protein Total Protein Albumin Prealbumin Triglycerides Cholesterol LDL Cholesterol Direct HDL Cholesterol PTH Intact Urine pH Urine WBC (Auto) Urine Creatinine Urine Total Protein Fluid Total Protein Vancomycin Trough Rheumatoid Factor Complement C4 Miscellaneous Test Crossmatch 10/07/16 10/07/16 10/07/16 03:45 05:00 10:00 WBC 17.0 H RBC 2.68 L Hgb 7.3 L Hct 25.3 L MCV MCH 27 L MCHC 29 L RDW 19.6 H Plt Count 74 L Lymph % (Auto) Pope % (Auto) Lymph # Pope # Baso # Seg Neutrophils % Seg Neuts % (Manual) Lymphocytes % (Manual) 12.0 L Monocytes % (Manual) Eosinophils % (Manual) Basophils % (Manual) Nucleated RBC % 4.0 H Seg Neutrophils # Seg Neutrophils # Man 10.7 H Lymphocytes # (Manual) Monocytes # (Manual) Eosinophils # (Manual) Basophils # (Manual) PT INR Fibrinogen dRVVT Confirm Interp Factor V Activity POC ABG pH POC ABG pCO2 POC ABG pO2 ABG pO2 ABG HCO3 ABG Base Excess ABG Hemoglobin Oxyhemoglobin Sodium 130 L Potassium 3.2 L Chloride 93.9 L Carbon Dioxide 20 L BUN 44 H Creatinine 2.7 H Glucose 129 H POC Glucose Lactic Acid Calcium 7.4 L Phosphorus Magnesium Direct Bilirubin AST ALT 6 L Alkaline Phosphatase 195 H Lactate Dehydrogenase Troponin T C-Reactive Protein Total Protein 4.9 L Albumin 1.0 L Prealbumin Triglycerides Cholesterol LDL Cholesterol Direct HDL Cholesterol PTH Intact Urine pH Urine WBC (Auto) Urine Creatinine Urine Total Protein Fluid Total Protein Vancomycin Trough Rheumatoid Factor Complement C4 Miscellaneous Test Flexitest 1 H Crossmatch 10/07/16 10/07/16 10/07/16 10:00 11:24 18:10 WBC RBC Hgb Hct MCV MCH MCHC RDW Plt Count Lymph % (Auto) Pope % (Auto) Lymph # Pope # Baso # Seg Neutrophils % Seg Neuts % (Manual) Lymphocytes % (Manual) Monocytes % (Manual) Eosinophils % (Manual) Basophils % (Manual) Nucleated RBC % Seg Neutrophils # Seg Neutrophils # Man Lymphocytes # (Manual) Monocytes # (Manual) Eosinophils # (Manual) Basophils # (Manual) PT INR Fibrinogen dRVVT Confirm Interp Factor V Activity POC ABG pH POC ABG pCO2 POC ABG pO2 ABG pO2 ABG HCO3 ABG Base Excess ABG Hemoglobin Oxyhemoglobin Sodium Potassium Chloride Carbon Dioxide BUN Creatinine Glucose POC Glucose 116 H 130 H Lactic Acid Calcium Phosphorus Magnesium Direct Bilirubin AST ALT Alkaline Phosphatase Lactate Dehydrogenase Troponin T C-Reactive Protein 19.40 H Total Protein Albumin Prealbumin Triglycerides Cholesterol LDL Cholesterol Direct HDL Cholesterol PTH Intact Urine pH Urine WBC (Auto) Urine Creatinine Urine Total Protein Fluid Total Protein Vancomycin Trough Rheumatoid Factor Complement C4 Miscellaneous Test Crossmatch 10/07/16 10/08/16 10/08/16 18:30 00:00 04:00 WBC RBC Hgb Hct MCV MCH MCHC RDW Plt Count Lymph % (Auto) Pope % (Auto) Lymph # Pope # Baso # Seg Neutrophils % Seg Neuts % (Manual) Lymphocytes % (Manual) Monocytes % (Manual) Eosinophils % (Manual) Basophils % (Manual) Nucleated RBC % Seg Neutrophils # Seg Neutrophils # Man Lymphocytes # (Manual) Monocytes # (Manual) Eosinophils # (Manual) Basophils # (Manual) PT INR Fibrinogen dRVVT Confirm Interp Factor V Activity POC ABG pH POC ABG pCO2 POC ABG pO2 ABG pO2 ABG HCO3 ABG Base Excess ABG Hemoglobin Oxyhemoglobin Sodium 132 L Potassium 3.3 L Chloride 93.6 L Carbon Dioxide 17 L BUN 59 H Creatinine 2.7 H Glucose 121 H POC Glucose 122 H Lactic Acid Calcium 7.6 L Phosphorus Magnesium Direct Bilirubin AST ALT Alkaline Phosphatase Lactate Dehydrogenase Troponin T C-Reactive Protein Total Protein Albumin Prealbumin Triglycerides Cholesterol LDL Cholesterol Direct HDL Cholesterol PTH Intact Urine pH Urine WBC (Auto) > 182.0 H Urine Creatinine Urine Total Protein Fluid Total Protein Vancomycin Trough Rheumatoid Factor Complement C4 Miscellaneous Test Crossmatch 10/08/16 10/08/16 10/08/16 04:30 05:30 11:51 WBC RBC 5.15 H Hgb 14.4 H D Hct 44.5 H D MCV MCH MCHC RDW 19.5 H Plt Count 56 L Lymph % (Auto) Pope % (Auto) Lymph # Pope # Baso # Seg Neutrophils % Seg Neuts % (Manual) 24.0 L Lymphocytes % (Manual) 8.0 L Monocytes % (Manual) Eosinophils % (Manual) Basophils % (Manual) Nucleated RBC % 9.0 H Seg Neutrophils # Seg Neutrophils # Man Lymphocytes # (Manual) 0.7 L Monocytes # (Manual) Eosinophils # (Manual) Basophils # (Manual) PT INR Fibrinogen dRVVT Confirm Interp Factor V Activity POC ABG pH POC ABG pCO2 POC ABG pO2 ABG pO2 ABG HCO3 ABG Base Excess ABG Hemoglobin Oxyhemoglobin Sodium Potassium Chloride Carbon Dioxide BUN Creatinine Glucose POC Glucose 125 H 150 H Lactic Acid Calcium Phosphorus Magnesium Direct Bilirubin AST ALT Alkaline Phosphatase Lactate Dehydrogenase Troponin T C-Reactive Protein Total Protein Albumin Prealbumin Triglycerides Cholesterol LDL Cholesterol Direct HDL Cholesterol PTH Intact Urine pH Urine WBC (Auto) Urine Creatinine Urine Total Protein Fluid Total Protein Vancomycin Trough Rheumatoid Factor Complement C4 Miscellaneous Test Crossmatch 10/08/16 10/08/16 10/08/16 12:49 17:07 19:30 WBC RBC Hgb 7.1 L D Hct 22.4 L D MCV MCH MCHC RDW Plt Count Lymph % (Auto) Pope % (Auto) Lymph # Pope # Baso # Seg Neutrophils % Seg Neuts % (Manual) Lymphocytes % (Manual) Monocytes % (Manual) Eosinophils % (Manual) Basophils % (Manual) Nucleated RBC % Seg Neutrophils # Seg Neutrophils # Man Lymphocytes # (Manual) Monocytes # (Manual) Eosinophils # (Manual) Basophils # (Manual) PT INR Fibrinogen dRVVT Confirm Interp Factor V Activity POC ABG pH POC ABG pCO2 28.2 L POC ABG pO2 111 H ABG pO2 ABG HCO3 ABG Base Excess ABG Hemoglobin Oxyhemoglobin Sodium Potassium Chloride Carbon Dioxide BUN Creatinine Glucose POC Glucose 145 H Lactic Acid Calcium Phosphorus Magnesium Direct Bilirubin AST ALT Alkaline Phosphatase Lactate Dehydrogenase Troponin T C-Reactive Protein Total Protein Albumin Prealbumin Triglycerides Cholesterol LDL Cholesterol Direct HDL Cholesterol PTH Intact Urine pH Urine WBC (Auto) Urine Creatinine Urine Total Protein Fluid Total Protein Vancomycin Trough Rheumatoid Factor Complement C4 Miscellaneous Test Crossmatch 10/08/16 10/09/16 10/09/16 19:30 03:45 03:45 WBC 12.6 H RBC 2.36 L Hgb 6.7 L Hct 21.1 L MCV MCH MCHC RDW 19.5 H Plt Count 75 L Lymph % (Auto) Pope % (Auto) Lymph # Pope # Baso # Seg Neutrophils % Seg Neuts % (Manual) Lymphocytes % (Manual) Monocytes % (Manual) 10.0 H Eosinophils % (Manual) Basophils % (Manual) Nucleated RBC % 3.0 H Seg Neutrophils # Seg Neutrophils # Man Lymphocytes # (Manual) Monocytes # (Manual) 1.3 H Eosinophils # (Manual) Basophils # (Manual) PT 18.0 H INR 1.41 H Fibrinogen dRVVT Confirm Interp Factor V Activity POC ABG pH POC ABG pCO2 POC ABG pO2 ABG pO2 ABG HCO3 ABG Base Excess ABG Hemoglobin Oxyhemoglobin Sodium 135 L Potassium Chloride Carbon Dioxide 17 L BUN 81 H Creatinine 3.2 H Glucose 109 H POC Glucose Lactic Acid Calcium 7.4 L Phosphorus 4.60 H D Magnesium Direct Bilirubin AST ALT Alkaline Phosphatase Lactate Dehydrogenase Troponin T C-Reactive Protein Total Protein Albumin Prealbumin Triglycerides Cholesterol LDL Cholesterol Direct HDL Cholesterol PTH Intact Urine pH Urine WBC (Auto) Urine Creatinine Urine Total Protein Fluid Total Protein Vancomycin Trough Rheumatoid Factor Complement C4 Miscellaneous Test Crossmatch 10/09/16 10/09/16 10/09/16 03:45 05:14 07:20 WBC RBC Hgb Hct MCV MCH MCHC RDW Plt Count Lymph % (Auto) Pope % (Auto) Lymph # Pope # Baso # Seg Neutrophils % Seg Neuts % (Manual) Lymphocytes % (Manual) Monocytes % (Manual) Eosinophils % (Manual) Basophils % (Manual) Nucleated RBC % Seg Neutrophils # Seg Neutrophils # Man Lymphocytes # (Manual) Monocytes # (Manual) Eosinophils # (Manual) Basophils # (Manual) PT 19.0 H INR 1.51 H Fibrinogen dRVVT Confirm Interp Factor V Activity POC ABG pH POC ABG pCO2 POC ABG pO2 ABG pO2 ABG HCO3 ABG Base Excess ABG Hemoglobin Oxyhemoglobin Sodium Potassium Chloride Carbon Dioxide BUN Creatinine Glucose POC Glucose 151 H Lactic Acid Calcium Phosphorus Magnesium Direct Bilirubin AST ALT Alkaline Phosphatase Lactate Dehydrogenase Troponin T C-Reactive Protein Total Protein Albumin Prealbumin Triglycerides Cholesterol LDL Cholesterol Direct HDL Cholesterol PTH Intact Urine pH Urine WBC (Auto) Urine Creatinine Urine Total Protein Fluid Total Protein Vancomycin Trough Rheumatoid Factor Complement C4 Miscellaneous Test Crossmatch See Detail 10/09/16 10/09/16 10/09/16 11:46 16:20 16:43 WBC RBC Hgb 7.2 L Hct 22.2 L MCV MCH MCHC RDW Plt Count Lymph % (Auto) Pope % (Auto) Lymph # Pope # Baso # Seg Neutrophils % Seg Neuts % (Manual) Lymphocytes % (Manual) Monocytes % (Manual) Eosinophils % (Manual) Basophils % (Manual) Nucleated RBC % Seg Neutrophils # Seg Neutrophils # Man Lymphocytes # (Manual) Monocytes # (Manual) Eosinophils # (Manual) Basophils # (Manual) PT INR Fibrinogen dRVVT Confirm Interp Factor V Activity POC ABG pH POC ABG pCO2 POC ABG pO2 ABG pO2 ABG HCO3 ABG Base Excess ABG Hemoglobin Oxyhemoglobin Sodium Potassium Chloride Carbon Dioxide BUN Creatinine Glucose POC Glucose 133 H 141 H Lactic Acid Calcium Phosphorus Magnesium Direct Bilirubin AST ALT Alkaline Phosphatase Lactate Dehydrogenase Troponin T C-Reactive Protein Total Protein Albumin Prealbumin Triglycerides Cholesterol LDL Cholesterol Direct HDL Cholesterol PTH Intact Urine pH Urine WBC (Auto) Urine Creatinine Urine Total Protein Fluid Total Protein Vancomycin Trough Rheumatoid Factor Complement C4 Miscellaneous Test Crossmatch 10/10/16 10/10/16 10/10/16 05:00 05:00 11:19 WBC 18.5 H RBC 2.19 L Hgb 6.4 L Hct 19.6 L* MCV MCH MCHC RDW 19.3 H Plt Count 93 L Lymph % (Auto) Pope % (Auto) Lymph # Pope # Baso # Seg Neutrophils % Seg Neuts % (Manual) Lymphocytes % (Manual) 10.0 L Monocytes % (Manual) Eosinophils % (Manual) Basophils % (Manual) Nucleated RBC % 4.0 H Seg Neutrophils # Seg Neutrophils # Man 11.3 H Lymphocytes # (Manual) Monocytes # (Manual) Eosinophils # (Manual) Basophils # (Manual) PT INR Fibrinogen dRVVT Confirm Interp Factor V Activity POC ABG pH POC ABG pCO2 POC ABG pO2 ABG pO2 ABG HCO3 ABG Base Excess ABG Hemoglobin Oxyhemoglobin Sodium Potassium 5.7 H D Chloride Carbon Dioxide 16 L BUN 94 H Creatinine 3.1 H Glucose 131 H POC Glucose 153 H Lactic Acid Calcium 8.2 L Phosphorus 5.10 H Magnesium 2.40 H Direct Bilirubin 0.3 H AST ALT < 5 L Alkaline Phosphatase 319 H Lactate Dehydrogenase Troponin T C-Reactive Protein Total Protein 5.1 L Albumin 1.0 L Prealbumin Triglycerides Cholesterol LDL Cholesterol Direct HDL Cholesterol PTH Intact Urine pH Urine WBC (Auto) Urine Creatinine Urine Total Protein Fluid Total Protein Vancomycin Trough Rheumatoid Factor Complement C4 Miscellaneous Test Crossmatch 10/10/16 10/10/16 10/11/16 17:50 23:30 04:15 WBC RBC Hgb Hct MCV MCH MCHC RDW Plt Count Lymph % (Auto) Pope % (Auto) Lymph # Pope # Baso # Seg Neutrophils % Seg Neuts % (Manual) Lymphocytes % (Manual) Monocytes % (Manual) Eosinophils % (Manual) Basophils % (Manual) Nucleated RBC % Seg Neutrophils # Seg Neutrophils # Man Lymphocytes # (Manual) Monocytes # (Manual) Eosinophils # (Manual) Basophils # (Manual) PT INR Fibrinogen dRVVT Confirm Interp Factor V Activity POC ABG pH POC ABG pCO2 POC ABG pO2 ABG pO2 ABG HCO3 ABG Base Excess ABG Hemoglobin Oxyhemoglobin Sodium Potassium Chloride 96.4 L Carbon Dioxide 21 L BUN 57 H Creatinine 2.1 H Glucose 151 H POC Glucose 146 H 141 H Lactic Acid Calcium 8.3 L Phosphorus Magnesium Direct Bilirubin AST ALT Alkaline Phosphatase Lactate Dehydrogenase Troponin T C-Reactive Protein Total Protein Albumin Prealbumin Triglycerides Cholesterol LDL Cholesterol Direct HDL Cholesterol PTH Intact Urine pH Urine WBC (Auto) Urine Creatinine Urine Total Protein Fluid Total Protein Vancomycin Trough Rheumatoid Factor Complement C4 Miscellaneous Test Crossmatch 10/11/16 10/11/16 10/11/16 04:15 04:15 05:30 WBC 28.3 H RBC 3.12 L Hgb 9.3 L Hct 28.7 L D MCV MCH MCHC RDW 17.7 H Plt Count 128 L Lymph % (Auto) Pope % (Auto) Lymph # Pope # Baso # Seg Neutrophils % Seg Neuts % (Manual) Lymphocytes % (Manual) Monocytes % (Manual) Eosinophils % (Manual) Basophils % (Manual) Nucleated RBC % Seg Neutrophils # Seg Neutrophils # Man Lymphocytes # (Manual) Monocytes # (Manual) Eosinophils # (Manual) Basophils # (Manual) PT INR Fibrinogen dRVVT Confirm Interp Factor V Activity POC ABG pH POC ABG pCO2 POC ABG pO2 ABG pO2 ABG HCO3 ABG Base Excess ABG Hemoglobin Oxyhemoglobin Sodium Potassium Chloride Carbon Dioxide BUN Creatinine Glucose POC Glucose 167 H Lactic Acid Calcium Phosphorus Magnesium Direct Bilirubin AST ALT Alkaline Phosphatase Lactate Dehydrogenase Troponin T C-Reactive Protein 15.80 H Total Protein Albumin Prealbumin Triglycerides Cholesterol LDL Cholesterol Direct HDL Cholesterol PTH Intact Urine pH Urine WBC (Auto) Urine Creatinine Urine Total Protein Fluid Total Protein Vancomycin Trough Rheumatoid Factor Complement C4 Miscellaneous Test Crossmatch 10/11/16 10/11/16 10/11/16 11:40 15:49 23:57 WBC RBC Hgb Hct MCV MCH MCHC RDW Plt Count Lymph % (Auto) Pope % (Auto) Lymph # Pope # Baso # Seg Neutrophils % Seg Neuts % (Manual) Lymphocytes % (Manual) Monocytes % (Manual) Eosinophils % (Manual) Basophils % (Manual) Nucleated RBC % Seg Neutrophils # Seg Neutrophils # Man Lymphocytes # (Manual) Monocytes # (Manual) Eosinophils # (Manual) Basophils # (Manual) PT INR Fibrinogen dRVVT Confirm Interp Factor V Activity POC ABG pH POC ABG pCO2 POC ABG pO2 ABG pO2 ABG HCO3 ABG Base Excess ABG Hemoglobin Oxyhemoglobin Sodium Potassium Chloride Carbon Dioxide BUN Creatinine Glucose POC Glucose 139 H 168 H 161 H Lactic Acid Calcium Phosphorus Magnesium Direct Bilirubin AST ALT Alkaline Phosphatase Lactate Dehydrogenase Troponin T C-Reactive Protein Total Protein Albumin Prealbumin Triglycerides Cholesterol LDL Cholesterol Direct HDL Cholesterol PTH Intact Urine pH Urine WBC (Auto) Urine Creatinine Urine Total Protein Fluid Total Protein Vancomycin Trough Rheumatoid Factor Complement C4 Miscellaneous Test Crossmatch 10/12/16 10/12/16 10/12/16 04:40 04:40 05:44 WBC 22.5 H RBC 2.88 L Hgb 8.8 L Hct 26.8 L MCV MCH MCHC RDW 17.8 H Plt Count Lymph % (Auto) Pope % (Auto) Lymph # Pope # Baso # Seg Neutrophils % Seg Neuts % (Manual) Lymphocytes % (Manual) Monocytes % (Manual) Eosinophils % (Manual) Basophils % (Manual) Nucleated RBC % Seg Neutrophils # Seg Neutrophils # Man Lymphocytes # (Manual) Monocytes # (Manual) Eosinophils # (Manual) Basophils # (Manual) PT INR Fibrinogen dRVVT Confirm Interp Factor V Activity POC ABG pH POC ABG pCO2 POC ABG pO2 ABG pO2 ABG HCO3 ABG Base Excess ABG Hemoglobin Oxyhemoglobin Sodium 134 L Potassium Chloride 93.0 L Carbon Dioxide BUN 74 H Creatinine 2.5 H Glucose 137 H POC Glucose 158 H Lactic Acid Calcium 8.2 L Phosphorus Magnesium Direct Bilirubin AST ALT Alkaline Phosphatase Lactate Dehydrogenase Troponin T C-Reactive Protein Total Protein Albumin Prealbumin Triglycerides Cholesterol LDL Cholesterol Direct HDL Cholesterol PTH Intact Urine pH Urine WBC (Auto) Urine Creatinine Urine Total Protein Fluid Total Protein Vancomycin Trough Rheumatoid Factor Complement C4 Miscellaneous Test Crossmatch 10/12/16 10/12/16 10/12/16 12:27 18:18 23:46 WBC RBC Hgb Hct MCV MCH MCHC RDW Plt Count Lymph % (Auto) Pope % (Auto) Lymph # Pope # Baso # Seg Neutrophils % Seg Neuts % (Manual) Lymphocytes % (Manual) Monocytes % (Manual) Eosinophils % (Manual) Basophils % (Manual) Nucleated RBC % Seg Neutrophils # Seg Neutrophils # Man Lymphocytes # (Manual) Monocytes # (Manual) Eosinophils # (Manual) Basophils # (Manual) PT INR Fibrinogen dRVVT Confirm Interp Factor V Activity POC ABG pH POC ABG pCO2 POC ABG pO2 ABG pO2 ABG HCO3 ABG Base Excess ABG Hemoglobin Oxyhemoglobin Sodium Potassium Chloride Carbon Dioxide BUN Creatinine Glucose POC Glucose 153 H 140 H 150 H Lactic Acid Calcium Phosphorus Magnesium Direct Bilirubin AST ALT Alkaline Phosphatase Lactate Dehydrogenase Troponin T C-Reactive Protein Total Protein Albumin Prealbumin Triglycerides Cholesterol LDL Cholesterol Direct HDL Cholesterol PTH Intact Urine pH Urine WBC (Auto) Urine Creatinine Urine Total Protein Fluid Total Protein Vancomycin Trough Rheumatoid Factor Complement C4 Miscellaneous Test Crossmatch 10/13/16 10/13/16 10/13/16 06:22 09:20 12:29 WBC RBC Hgb Hct MCV MCH MCHC RDW Plt Count Lymph % (Auto) Pope % (Auto) Lymph # Pope # Baso # Seg Neutrophils % Seg Neuts % (Manual) Lymphocytes % (Manual) Monocytes % (Manual) Eosinophils % (Manual) Basophils % (Manual) Nucleated RBC % Seg Neutrophils # Seg Neutrophils # Man Lymphocytes # (Manual) Monocytes # (Manual) Eosinophils # (Manual) Basophils # (Manual) PT INR Fibrinogen dRVVT Confirm Interp Factor V Activity POC ABG pH POC ABG pCO2 POC ABG pO2 ABG pO2 ABG HCO3 ABG Base Excess ABG Hemoglobin Oxyhemoglobin Sodium Potassium Chloride Carbon Dioxide BUN Creatinine Glucose POC Glucose 165 H 193 H Lactic Acid Calcium Phosphorus Magnesium Direct Bilirubin AST ALT Alkaline Phosphatase Lactate Dehydrogenase Troponin T C-Reactive Protein Total Protein Albumin Prealbumin Triglycerides Cholesterol LDL Cholesterol Direct HDL Cholesterol PTH Intact Urine pH Urine WBC (Auto) Urine Creatinine Urine Total Protein Fluid Total Protein Vancomycin Trough Rheumatoid Factor Complement C4 Miscellaneous Test Flexitest 1 H Crossmatch 10/13/16 10/13/16 10/13/16 18:09 Unknown Unknown WBC 23.4 H RBC 2.83 L Hgb 8.7 L Hct 26.1 L MCV MCH MCHC RDW 18.1 H Plt Count Lymph % (Auto) Pope % (Auto) Lymph # Pope # Baso # Seg Neutrophils % Seg Neuts % (Manual) Lymphocytes % (Manual) Monocytes % (Manual) Eosinophils % (Manual) Basophils % (Manual) Nucleated RBC % Seg Neutrophils # Seg Neutrophils # Man Lymphocytes # (Manual) Monocytes # (Manual) Eosinophils # (Manual) Basophils # (Manual) PT INR Fibrinogen dRVVT Confirm Interp Factor V Activity POC ABG pH POC ABG pCO2 POC ABG pO2 ABG pO2 ABG HCO3 ABG Base Excess ABG Hemoglobin Oxyhemoglobin Sodium Potassium Chloride 95.8 L Carbon Dioxide BUN 82 H Creatinine 2.6 H Glucose 152 H POC Glucose 166 H Lactic Acid Calcium Phosphorus Magnesium Direct Bilirubin AST ALT Alkaline Phosphatase Lactate Dehydrogenase Troponin T C-Reactive Protein Total Protein Albumin Prealbumin Triglycerides Cholesterol LDL Cholesterol Direct HDL Cholesterol PTH Intact Urine pH Urine WBC (Auto) Urine Creatinine Urine Total Protein Fluid Total Protein Vancomycin Trough Rheumatoid Factor Complement C4 Miscellaneous Test Crossmatch 10/14/16 10/14/16 10/14/16 05:38 06:35 08:10 WBC 20.7 H RBC 2.81 L Hgb 8.4 L Hct 27.2 L MCV MCH MCHC RDW 19.4 H Plt Count Lymph % (Auto) Pope % (Auto) Lymph # Pope # Baso # Seg Neutrophils % Seg Neuts % (Manual) Lymphocytes % (Manual) Monocytes % (Manual) Eosinophils % (Manual) Basophils % (Manual) Nucleated RBC % Seg Neutrophils # Seg Neutrophils # Man Lymphocytes # (Manual) Monocytes # (Manual) Eosinophils # (Manual) Basophils # (Manual) PT INR Fibrinogen dRVVT Confirm Interp Factor V Activity POC ABG pH POC ABG pCO2 POC ABG pO2 ABG pO2 ABG HCO3 ABG Base Excess ABG Hemoglobin Oxyhemoglobin Sodium Potassium Chloride Carbon Dioxide BUN 58 H Creatinine 1.9 H Glucose 169 H POC Glucose 195 H Lactic Acid Calcium Phosphorus Magnesium Direct Bilirubin AST ALT Alkaline Phosphatase Lactate Dehydrogenase Troponin T C-Reactive Protein Total Protein Albumin Prealbumin Triglycerides Cholesterol LDL Cholesterol Direct HDL Cholesterol PTH Intact Urine pH Urine WBC (Auto) Urine Creatinine Urine Total Protein Fluid Total Protein Vancomycin Trough Rheumatoid Factor Complement C4 Miscellaneous Test Crossmatch 10/14/16 10/14/16 10/14/16 11:44 17:13 23:28 WBC RBC Hgb Hct MCV MCH MCHC RDW Plt Count Lymph % (Auto) Pope % (Auto) Lymph # Pope # Baso # Seg Neutrophils % Seg Neuts % (Manual) Lymphocytes % (Manual) Monocytes % (Manual) Eosinophils % (Manual) Basophils % (Manual) Nucleated RBC % Seg Neutrophils # Seg Neutrophils # Man Lymphocytes # (Manual) Monocytes # (Manual) Eosinophils # (Manual) Basophils # (Manual) PT INR Fibrinogen dRVVT Confirm Interp Factor V Activity POC ABG pH POC ABG pCO2 POC ABG pO2 ABG pO2 ABG HCO3 ABG Base Excess ABG Hemoglobin Oxyhemoglobin Sodium Potassium Chloride Carbon Dioxide BUN Creatinine Glucose POC Glucose 174 H 121 H 151 H Lactic Acid Calcium Phosphorus Magnesium Direct Bilirubin AST ALT Alkaline Phosphatase Lactate Dehydrogenase Troponin T C-Reactive Protein Total Protein Albumin Prealbumin Triglycerides Cholesterol LDL Cholesterol Direct HDL Cholesterol PTH Intact Urine pH Urine WBC (Auto) Urine Creatinine Urine Total Protein Fluid Total Protein Vancomycin Trough Rheumatoid Factor Complement C4 Miscellaneous Test Crossmatch 10/15/16 10/15/16 10/15/16 05:06 12:26 17:48 WBC RBC Hgb Hct MCV MCH MCHC RDW Plt Count Lymph % (Auto) Pope % (Auto) Lymph # Pope # Baso # Seg Neutrophils % Seg Neuts % (Manual) Lymphocytes % (Manual) Monocytes % (Manual) Eosinophils % (Manual) Basophils % (Manual) Nucleated RBC % Seg Neutrophils # Seg Neutrophils # Man Lymphocytes # (Manual) Monocytes # (Manual) Eosinophils # (Manual) Basophils # (Manual) PT INR Fibrinogen dRVVT Confirm Interp Factor V Activity POC ABG pH POC ABG pCO2 POC ABG pO2 ABG pO2 ABG HCO3 ABG Base Excess ABG Hemoglobin Oxyhemoglobin Sodium Potassium Chloride Carbon Dioxide BUN Creatinine Glucose POC Glucose 151 H 149 H 153 H Lactic Acid Calcium Phosphorus Magnesium Direct Bilirubin AST ALT Alkaline Phosphatase Lactate Dehydrogenase Troponin T C-Reactive Protein Total Protein Albumin Prealbumin Triglycerides Cholesterol LDL Cholesterol Direct HDL Cholesterol PTH Intact Urine pH Urine WBC (Auto) Urine Creatinine Urine Total Protein Fluid Total Protein Vancomycin Trough Rheumatoid Factor Complement C4 Miscellaneous Test Crossmatch 10/15/16 10/15/16 10/16/16 Unknown Unknown 00:02 WBC 23.4 H RBC 2.78 L Hgb 8.5 L Hct 25.7 L MCV MCH MCHC RDW 18.7 H Plt Count Lymph % (Auto) Pope % (Auto) Lymph # Pope # Baso # Seg Neutrophils % Seg Neuts % (Manual) Lymphocytes % (Manual) Monocytes % (Manual) Eosinophils % (Manual) Basophils % (Manual) Nucleated RBC % Seg Neutrophils # Seg Neutrophils # Man Lymphocytes # (Manual) Monocytes # (Manual) Eosinophils # (Manual) Basophils # (Manual) PT INR Fibrinogen dRVVT Confirm Interp Factor V Activity POC ABG pH POC ABG pCO2 POC ABG pO2 ABG pO2 ABG HCO3 ABG Base Excess ABG Hemoglobin Oxyhemoglobin Sodium Potassium Chloride Carbon Dioxide BUN 73 H Creatinine 2.3 H Glucose 120 H POC Glucose 137 H Lactic Acid Calcium Phosphorus Magnesium Direct Bilirubin AST ALT Alkaline Phosphatase Lactate Dehydrogenase Troponin T C-Reactive Protein Total Protein Albumin Prealbumin Triglycerides Cholesterol LDL Cholesterol Direct HDL Cholesterol PTH Intact Urine pH Urine WBC (Auto) Urine Creatinine Urine Total Protein Fluid Total Protein Vancomycin Trough Rheumatoid Factor Complement C4 Miscellaneous Test Crossmatch 10/16/16 10/16/16 10/16/16 05:44 06:25 06:25 WBC 22.5 H RBC 2.76 L Hgb 8.3 L Hct 25.2 L MCV MCH MCHC RDW 18.3 H Plt Count Lymph % (Auto) Pope % (Auto) Lymph # Pope # Baso # Seg Neutrophils % Seg Neuts % (Manual) Lymphocytes % (Manual) Monocytes % (Manual) Eosinophils % (Manual) Basophils % (Manual) Nucleated RBC % Seg Neutrophils # Seg Neutrophils # Man Lymphocytes # (Manual) Monocytes # (Manual) Eosinophils # (Manual) Basophils # (Manual) PT INR Fibrinogen dRVVT Confirm Interp Factor V Activity POC ABG pH POC ABG pCO2 POC ABG pO2 ABG pO2 ABG HCO3 ABG Base Excess ABG Hemoglobin Oxyhemoglobin Sodium Potassium Chloride Carbon Dioxide BUN 92 H Creatinine 3.0 H Glucose 138 H POC Glucose 110 H Lactic Acid Calcium Phosphorus Magnesium Direct Bilirubin AST ALT Alkaline Phosphatase Lactate Dehydrogenase Troponin T C-Reactive Protein Total Protein Albumin Prealbumin Triglycerides Cholesterol LDL Cholesterol Direct HDL Cholesterol PTH Intact Urine pH Urine WBC (Auto) Urine Creatinine Urine Total Protein Fluid Total Protein Vancomycin Trough Rheumatoid Factor Complement C4 Miscellaneous Test Crossmatch 10/16/16 10/16/16 10/16/16 11:27 11:48 17:36 WBC RBC Hgb Hct MCV MCH MCHC RDW Plt Count Lymph % (Auto) Pope % (Auto) Lymph # Pope # Baso # Seg Neutrophils % Seg Neuts % (Manual) Lymphocytes % (Manual) Monocytes % (Manual) Eosinophils % (Manual) Basophils % (Manual) Nucleated RBC % Seg Neutrophils # Seg Neutrophils # Man Lymphocytes # (Manual) Monocytes # (Manual) Eosinophils # (Manual) Basophils # (Manual) PT INR Fibrinogen dRVVT Confirm Interp Factor V Activity POC ABG pH 7.582 H POC ABG pCO2 27.4 L POC ABG pO2 110 H ABG pO2 ABG HCO3 ABG Base Excess ABG Hemoglobin Oxyhemoglobin Sodium Potassium Chloride Carbon Dioxide BUN Creatinine Glucose POC Glucose 121 H 133 H Lactic Acid Calcium Phosphorus Magnesium Direct Bilirubin AST ALT Alkaline Phosphatase Lactate Dehydrogenase Troponin T C-Reactive Protein Total Protein Albumin Prealbumin Triglycerides Cholesterol LDL Cholesterol Direct HDL Cholesterol PTH Intact Urine pH Urine WBC (Auto) Urine Creatinine Urine Total Protein Fluid Total Protein Vancomycin Trough Rheumatoid Factor Complement C4 Miscellaneous Test Crossmatch 10/16/16 10/17/16 10/17/16 20:48 04:24 04:24 WBC 21.4 H RBC 2.72 L Hgb 8.0 L Hct 25.2 L MCV MCH MCHC RDW 18.0 H Plt Count Lymph % (Auto) Pope % (Auto) Lymph # Pope # Baso # Seg Neutrophils % Seg Neuts % (Manual) Lymphocytes % (Manual) Monocytes % (Manual) Eosinophils % (Manual) Basophils % (Manual) Nucleated RBC % Seg Neutrophils # Seg Neutrophils # Man Lymphocytes # (Manual) Monocytes # (Manual) Eosinophils # (Manual) Basophils # (Manual) PT INR Fibrinogen dRVVT Confirm Interp Factor V Activity POC ABG pH 7.561 H POC ABG pCO2 24.4 L POC ABG pO2 77 L ABG pO2 ABG HCO3 ABG Base Excess ABG Hemoglobin Oxyhemoglobin Sodium 148 H Potassium Chloride Carbon Dioxide BUN 104 H Creatinine 3.0 H Glucose 149 H POC Glucose Lactic Acid Calcium Phosphorus Magnesium Direct Bilirubin AST ALT Alkaline Phosphatase 138 H Lactate Dehydrogenase Troponin T C-Reactive Protein Total Protein 6.2 L Albumin 1.5 L Prealbumin Triglycerides Cholesterol LDL Cholesterol Direct HDL Cholesterol PTH Intact Urine pH Urine WBC (Auto) Urine Creatinine Urine Total Protein Fluid Total Protein Vancomycin Trough Rheumatoid Factor Complement C4 Miscellaneous Test Crossmatch 10/17/16 10/17/16 10/17/16 06:02 12:17 17:14 WBC RBC Hgb Hct MCV MCH MCHC RDW Plt Count Lymph % (Auto) Pope % (Auto) Lymph # Pope # Baso # Seg Neutrophils % Seg Neuts % (Manual) Lymphocytes % (Manual) Monocytes % (Manual) Eosinophils % (Manual) Basophils % (Manual) Nucleated RBC % Seg Neutrophils # Seg Neutrophils # Man Lymphocytes # (Manual) Monocytes # (Manual) Eosinophils # (Manual) Basophils # (Manual) PT INR Fibrinogen dRVVT Confirm Interp Factor V Activity POC ABG pH POC ABG pCO2 POC ABG pO2 ABG pO2 ABG HCO3 ABG Base Excess ABG Hemoglobin Oxyhemoglobin Sodium Potassium Chloride Carbon Dioxide BUN Creatinine Glucose POC Glucose 170 H 167 H 126 H Lactic Acid Calcium Phosphorus Magnesium Direct Bilirubin AST ALT Alkaline Phosphatase Lactate Dehydrogenase Troponin T C-Reactive Protein Total Protein Albumin Prealbumin Triglycerides Cholesterol LDL Cholesterol Direct HDL Cholesterol PTH Intact Urine pH Urine WBC (Auto) Urine Creatinine Urine Total Protein Fluid Total Protein Vancomycin Trough Rheumatoid Factor Complement C4 Miscellaneous Test Crossmatch 10/17/16 10/18/16 10/18/16 23:17 04:00 04:00 WBC 20.7 H RBC 2.47 L Hgb 7.4 L Hct 22.9 L MCV MCH MCHC RDW 17.5 H Plt Count Lymph % (Auto) Pope % (Auto) Lymph # Pope # Baso # Seg Neutrophils % Seg Neuts % (Manual) Lymphocytes % (Manual) Monocytes % (Manual) Eosinophils % (Manual) Basophils % (Manual) Nucleated RBC % Seg Neutrophils # Seg Neutrophils # Man Lymphocytes # (Manual) Monocytes # (Manual) Eosinophils # (Manual) Basophils # (Manual) PT INR Fibrinogen dRVVT Confirm Interp Factor V Activity POC ABG pH POC ABG pCO2 POC ABG pO2 ABG pO2 ABG HCO3 ABG Base Excess ABG Hemoglobin Oxyhemoglobin Sodium 149 H Potassium Chloride 107.9 H Carbon Dioxide 20 L BUN 117 H Creatinine 3.2 H Glucose 119 H POC Glucose 121 H Lactic Acid Calcium Phosphorus Magnesium Direct Bilirubin AST ALT Alkaline Phosphatase Lactate Dehydrogenase Troponin T C-Reactive Protein Total Protein Albumin Prealbumin Triglycerides Cholesterol LDL Cholesterol Direct HDL Cholesterol PTH Intact Urine pH Urine WBC (Auto) Urine Creatinine Urine Total Protein Fluid Total Protein Vancomycin Trough Rheumatoid Factor Complement C4 Miscellaneous Test Crossmatch 10/18/16 10/18/16 10/18/16 05:23 10:46 17:30 WBC RBC Hgb Hct MCV MCH MCHC RDW Plt Count Lymph % (Auto) Pope % (Auto) Lymph # Pope # Baso # Seg Neutrophils % Seg Neuts % (Manual) Lymphocytes % (Manual) Monocytes % (Manual) Eosinophils % (Manual) Basophils % (Manual) Nucleated RBC % Seg Neutrophils # Seg Neutrophils # Man Lymphocytes # (Manual) Monocytes # (Manual) Eosinophils # (Manual) Basophils # (Manual) PT INR Fibrinogen dRVVT Confirm Interp Factor V Activity POC ABG pH POC ABG pCO2 POC ABG pO2 ABG pO2 ABG HCO3 ABG Base Excess ABG Hemoglobin Oxyhemoglobin Sodium Potassium Chloride Carbon Dioxide BUN Creatinine Glucose POC Glucose 119 H 155 H 124 H Lactic Acid Calcium Phosphorus Magnesium Direct Bilirubin AST ALT Alkaline Phosphatase Lactate Dehydrogenase Troponin T C-Reactive Protein Total Protein Albumin Prealbumin Triglycerides Cholesterol LDL Cholesterol Direct HDL Cholesterol PTH Intact Urine pH Urine WBC (Auto) Urine Creatinine Urine Total Protein Fluid Total Protein Vancomycin Trough Rheumatoid Factor Complement C4 Miscellaneous Test Crossmatch 10/19/16 10/19/16 10/19/16 04:00 04:00 05:25 WBC 17.4 H RBC 2.54 L Hgb 7.7 L Hct 23.6 L MCV MCH MCHC RDW 17.3 H Plt Count Lymph % (Auto) Pope % (Auto) Lymph # Pope # Baso # Seg Neutrophils % Seg Neuts % (Manual) Lymphocytes % (Manual) Monocytes % (Manual) Eosinophils % (Manual) Basophils % (Manual) Nucleated RBC % Seg Neutrophils # Seg Neutrophils # Man Lymphocytes # (Manual) Monocytes # (Manual) Eosinophils # (Manual) Basophils # (Manual) PT INR Fibrinogen dRVVT Confirm Interp Factor V Activity POC ABG pH POC ABG pCO2 POC ABG pO2 ABG pO2 ABG HCO3 ABG Base Excess ABG Hemoglobin Oxyhemoglobin Sodium Potassium Chloride Carbon Dioxide BUN 72 H Creatinine 2.1 H Glucose 116 H POC Glucose 119 H Lactic Acid Calcium Phosphorus Magnesium Direct Bilirubin AST ALT Alkaline Phosphatase Lactate Dehydrogenase Troponin T C-Reactive Protein Total Protein Albumin Prealbumin Triglycerides Cholesterol LDL Cholesterol Direct HDL Cholesterol PTH Intact Urine pH Urine WBC (Auto) Urine Creatinine Urine Total Protein Fluid Total Protein Vancomycin Trough Rheumatoid Factor Complement C4 Miscellaneous Test Crossmatch 10/19/16 10/19/16 10/20/16 11:46 23:59 06:00 WBC RBC Hgb Hct MCV MCH MCHC RDW Plt Count Lymph % (Auto) Pope % (Auto) Lymph # Pope # Baso # Seg Neutrophils % Seg Neuts % (Manual) Lymphocytes % (Manual) Monocytes % (Manual) Eosinophils % (Manual) Basophils % (Manual) Nucleated RBC % Seg Neutrophils # Seg Neutrophils # Man Lymphocytes # (Manual) Monocytes # (Manual) Eosinophils # (Manual) Basophils # (Manual) PT INR Fibrinogen dRVVT Confirm Interp Factor V Activity POC ABG pH POC ABG pCO2 POC ABG pO2 ABG pO2 ABG HCO3 ABG Base Excess ABG Hemoglobin Oxyhemoglobin Sodium Potassium Chloride Carbon Dioxide 17 L BUN 94 H Creatinine 2.7 H Glucose POC Glucose 116 H 117 H Lactic Acid Calcium Phosphorus Magnesium Direct Bilirubin AST ALT Alkaline Phosphatase Lactate Dehydrogenase Troponin T C-Reactive Protein Total Protein Albumin Prealbumin Triglycerides Cholesterol LDL Cholesterol Direct HDL Cholesterol PTH Intact Urine pH Urine WBC (Auto) Urine Creatinine Urine Total Protein Fluid Total Protein Vancomycin Trough Rheumatoid Factor Complement C4 Miscellaneous Test Crossmatch 10/20/16 10/20/16 10/20/16 06:00 11:49 16:00 WBC 19.7 H RBC 2.51 L Hgb 7.7 L Hct 23.5 L MCV MCH MCHC RDW 17.5 H Plt Count Lymph % (Auto) Pope % (Auto) Lymph # Pope # Baso # Seg Neutrophils % Seg Neuts % (Manual) Lymphocytes % (Manual) Monocytes % (Manual) Eosinophils % (Manual) Basophils % (Manual) Nucleated RBC % Seg Neutrophils # Seg Neutrophils # Man Lymphocytes # (Manual) Monocytes # (Manual) Eosinophils # (Manual) Basophils # (Manual) PT INR Fibrinogen dRVVT Confirm Interp Factor V Activity POC ABG pH POC ABG pCO2 POC ABG pO2 ABG pO2 ABG HCO3 ABG Base Excess ABG Hemoglobin Oxyhemoglobin Sodium Potassium Chloride Carbon Dioxide BUN Creatinine Glucose POC Glucose 117 H Lactic Acid Calcium Phosphorus Magnesium Direct Bilirubin AST ALT Alkaline Phosphatase Lactate Dehydrogenase Troponin T C-Reactive Protein Total Protein Albumin Prealbumin Triglycerides Cholesterol LDL Cholesterol Direct HDL Cholesterol PTH Intact Urine pH Urine WBC (Auto) Urine Creatinine Urine Total Protein Fluid Total Protein Vancomycin Trough Rheumatoid Factor Complement C4 Miscellaneous Test Flexitest 1 H Crossmatch 10/20/16 10/20/16 10/21/16 18:36 23:39 04:00 WBC RBC Hgb Hct MCV MCH MCHC RDW Plt Count Lymph % (Auto) Pope % (Auto) Lymph # Pope # Baso # Seg Neutrophils % Seg Neuts % (Manual) Lymphocytes % (Manual) Monocytes % (Manual) Eosinophils % (Manual) Basophils % (Manual) Nucleated RBC % Seg Neutrophils # Seg Neutrophils # Man Lymphocytes # (Manual) Monocytes # (Manual) Eosinophils # (Manual) Basophils # (Manual) PT INR Fibrinogen dRVVT Confirm Interp Factor V Activity POC ABG pH POC ABG pCO2 POC ABG pO2 ABG pO2 ABG HCO3 ABG Base Excess ABG Hemoglobin Oxyhemoglobin Sodium Potassium 5.4 H D Chloride Carbon Dioxide 15 L BUN 110 H Creatinine 3.0 H Glucose POC Glucose 127 H 114 H Lactic Acid Calcium Phosphorus Magnesium Direct Bilirubin AST ALT Alkaline Phosphatase Lactate Dehydrogenase Troponin T C-Reactive Protein Total Protein Albumin Prealbumin Triglycerides Cholesterol LDL Cholesterol Direct HDL Cholesterol PTH Intact Urine pH Urine WBC (Auto) Urine Creatinine Urine Total Protein Fluid Total Protein Vancomycin Trough Rheumatoid Factor Complement C4 Miscellaneous Test Crossmatch 10/21/16 10/21/16 10/22/16 05:54 23:46 05:18 WBC RBC Hgb Hct MCV MCH MCHC RDW Plt Count Lymph % (Auto) Pope % (Auto) Lymph # Pope # Baso # Seg Neutrophils % Seg Neuts % (Manual) Lymphocytes % (Manual) Monocytes % (Manual) Eosinophils % (Manual) Basophils % (Manual) Nucleated RBC % Seg Neutrophils # Seg Neutrophils # Man Lymphocytes # (Manual) Monocytes # (Manual) Eosinophils # (Manual) Basophils # (Manual) PT INR Fibrinogen dRVVT Confirm Interp Factor V Activity POC ABG pH POC ABG pCO2 POC ABG pO2 ABG pO2 ABG HCO3 ABG Base Excess ABG Hemoglobin Oxyhemoglobin Sodium Potassium Chloride Carbon Dioxide BUN Creatinine Glucose POC Glucose 119 H 108 H 109 H Lactic Acid Calcium Phosphorus Magnesium Direct Bilirubin AST ALT Alkaline Phosphatase Lactate Dehydrogenase Troponin T C-Reactive Protein Total Protein Albumin Prealbumin Triglycerides Cholesterol LDL Cholesterol Direct HDL Cholesterol PTH Intact Urine pH Urine WBC (Auto) Urine Creatinine Urine Total Protein Fluid Total Protein Vancomycin Trough Rheumatoid Factor Complement C4 Miscellaneous Test Crossmatch 10/22/16 10/22/16 10/22/16 06:40 06:40 06:40 WBC 14.0 H RBC 2.03 L Hgb 7.0 L Hct 20.5 L MCV 98 H MCH 34 H MCHC 35 H RDW 17.8 H Plt Count Lymph % (Auto) Pope % (Auto) 9.9 H Lymph # Pope # 1.4 H Baso # 0.2 H Seg Neutrophils % 72.0 H Seg Neuts % (Manual) Lymphocytes % (Manual) Monocytes % (Manual) Eosinophils % (Manual) Basophils % (Manual) Nucleated RBC % Seg Neutrophils # 10.0 H Seg Neutrophils # Man Lymphocytes # (Manual) Monocytes # (Manual) Eosinophils # (Manual) Basophils # (Manual) PT INR Fibrinogen dRVVT Confirm Interp Factor V Activity POC ABG pH POC ABG pCO2 POC ABG pO2 ABG pO2 ABG HCO3 ABG Base Excess ABG Hemoglobin Oxyhemoglobin Sodium 130 L D Potassium Chloride 92.4 L Carbon Dioxide 20 L BUN 50 H Creatinine 1.6 H Glucose 589 H* POC Glucose Lactic Acid Calcium 7.8 L D Phosphorus Magnesium 1.60 L Direct Bilirubin AST ALT Alkaline Phosphatase Lactate Dehydrogenase Troponin T C-Reactive Protein Total Protein Albumin Prealbumin Triglycerides Cholesterol LDL Cholesterol Direct HDL Cholesterol PTH Intact Urine pH Urine WBC (Auto) Urine Creatinine Urine Total Protein Fluid Total Protein Vancomycin Trough Rheumatoid Factor Complement C4 Miscellaneous Test Crossmatch 10/22/16 10/22/16 10/22/16 11:39 16:44 23:36 WBC RBC Hgb Hct MCV MCH MCHC RDW Plt Count Lymph % (Auto) Pope % (Auto) Lymph # Pope # Baso # Seg Neutrophils % Seg Neuts % (Manual) Lymphocytes % (Manual) Monocytes % (Manual) Eosinophils % (Manual) Basophils % (Manual) Nucleated RBC % Seg Neutrophils # Seg Neutrophils # Man Lymphocytes # (Manual) Monocytes # (Manual) Eosinophils # (Manual) Basophils # (Manual) PT INR Fibrinogen dRVVT Confirm Interp Factor V Activity POC ABG pH POC ABG pCO2 POC ABG pO2 ABG pO2 ABG HCO3 ABG Base Excess ABG Hemoglobin Oxyhemoglobin Sodium Potassium Chloride Carbon Dioxide BUN Creatinine Glucose POC Glucose 142 H 163 H 123 H Lactic Acid Calcium Phosphorus Magnesium Direct Bilirubin AST ALT Alkaline Phosphatase Lactate Dehydrogenase Troponin T C-Reactive Protein Total Protein Albumin Prealbumin Triglycerides Cholesterol LDL Cholesterol Direct HDL Cholesterol PTH Intact Urine pH Urine WBC (Auto) Urine Creatinine Urine Total Protein Fluid Total Protein Vancomycin Trough Rheumatoid Factor Complement C4 Miscellaneous Test Crossmatch 10/23/16 10/23/16 10/23/16 04:58 06:00 12:12 WBC RBC Hgb Hct MCV MCH MCHC RDW Plt Count Lymph % (Auto) Pope % (Auto) Lymph # Pope # Baso # Seg Neutrophils % Seg Neuts % (Manual) Lymphocytes % (Manual) Monocytes % (Manual) Eosinophils % (Manual) Basophils % (Manual) Nucleated RBC % Seg Neutrophils # Seg Neutrophils # Man Lymphocytes # (Manual) Monocytes # (Manual) Eosinophils # (Manual) Basophils # (Manual) PT INR Fibrinogen dRVVT Confirm Interp Factor V Activity POC ABG pH POC ABG pCO2 POC ABG pO2 ABG pO2 ABG HCO3 ABG Base Excess ABG Hemoglobin Oxyhemoglobin Sodium 133 L Potassium 3.5 L Chloride 96.1 L Carbon Dioxide 18 L BUN 76 H Creatinine 2.1 H Glucose POC Glucose 133 H 138 H Lactic Acid Calcium 8.3 L Phosphorus Magnesium Direct Bilirubin AST ALT Alkaline Phosphatase Lactate Dehydrogenase Troponin T C-Reactive Protein Total Protein Albumin Prealbumin Triglycerides Cholesterol LDL Cholesterol Direct HDL Cholesterol PTH Intact Urine pH Urine WBC (Auto) Urine Creatinine Urine Total Protein Fluid Total Protein Vancomycin Trough Rheumatoid Factor Complement C4 Miscellaneous Test Crossmatch 10/23/16 10/23/16 10/24/16 16:53 23:37 04:00 WBC RBC Hgb Hct MCV MCH MCHC RDW Plt Count Lymph % (Auto) Pope % (Auto) Lymph # Pope # Baso # Seg Neutrophils % Seg Neuts % (Manual) Lymphocytes % (Manual) Monocytes % (Manual) Eosinophils % (Manual) Basophils % (Manual) Nucleated RBC % Seg Neutrophils # Seg Neutrophils # Man Lymphocytes # (Manual) Monocytes # (Manual) Eosinophils # (Manual) Basophils # (Manual) PT INR Fibrinogen dRVVT Confirm Interp Factor V Activity POC ABG pH POC ABG pCO2 POC ABG pO2 ABG pO2 ABG HCO3 ABG Base Excess ABG Hemoglobin Oxyhemoglobin Sodium 131 L Potassium Chloride 94.5 L Carbon Dioxide 19 L BUN 97 H Creatinine 2.6 H Glucose 110 H POC Glucose 125 H 123 H Lactic Acid Calcium 8.3 L Phosphorus Magnesium Direct Bilirubin AST ALT Alkaline Phosphatase Lactate Dehydrogenase Troponin T C-Reactive Protein Total Protein Albumin Prealbumin Triglycerides Cholesterol LDL Cholesterol Direct HDL Cholesterol PTH Intact Urine pH Urine WBC (Auto) Urine Creatinine Urine Total Protein Fluid Total Protein Vancomycin Trough Rheumatoid Factor Complement C4 Miscellaneous Test Crossmatch 10/24/16 10/24/16 10/24/16 07:49 11:39 17:52 WBC RBC Hgb 6.0 L Hct 19.7 L* MCV MCH MCHC RDW Plt Count Lymph % (Auto) Pope % (Auto) Lymph # Pope # Baso # Seg Neutrophils % Seg Neuts % (Manual) Lymphocytes % (Manual) Monocytes % (Manual) Eosinophils % (Manual) Basophils % (Manual) Nucleated RBC % Seg Neutrophils # Seg Neutrophils # Man Lymphocytes # (Manual) Monocytes # (Manual) Eosinophils # (Manual) Basophils # (Manual) PT INR Fibrinogen dRVVT Confirm Interp Factor V Activity POC ABG pH POC ABG pCO2 POC ABG pO2 ABG pO2 ABG HCO3 ABG Base Excess ABG Hemoglobin Oxyhemoglobin Sodium Potassium Chloride Carbon Dioxide BUN Creatinine Glucose POC Glucose 106 H 158 H Lactic Acid Calcium Phosphorus Magnesium Direct Bilirubin AST ALT Alkaline Phosphatase Lactate Dehydrogenase Troponin T C-Reactive Protein Total Protein Albumin Prealbumin Triglycerides Cholesterol LDL Cholesterol Direct HDL Cholesterol PTH Intact Urine pH Urine WBC (Auto) Urine Creatinine Urine Total Protein Fluid Total Protein Vancomycin Trough Rheumatoid Factor Complement C4 Miscellaneous Test Crossmatch 10/24/16 10/24/16 10/24/16 20:00 22:27 Unknown WBC RBC Hgb 9.4 L D Hct 27.5 L D MCV MCH MCHC RDW Plt Count Lymph % (Auto) Pope % (Auto) Lymph # Pope # Baso # Seg Neutrophils % Seg Neuts % (Manual) Lymphocytes % (Manual) Monocytes % (Manual) Eosinophils % (Manual) Basophils % (Manual) Nucleated RBC % Seg Neutrophils # Seg Neutrophils # Man Lymphocytes # (Manual) Monocytes # (Manual) Eosinophils # (Manual) Basophils # (Manual) PT INR Fibrinogen dRVVT Confirm Interp Factor V Activity POC ABG pH POC ABG pCO2 POC ABG pO2 ABG pO2 ABG HCO3 ABG Base Excess ABG Hemoglobin Oxyhemoglobin Sodium Potassium Chloride Carbon Dioxide BUN Creatinine Glucose POC Glucose 125 H Lactic Acid Calcium Phosphorus Magnesium Direct Bilirubin AST ALT Alkaline Phosphatase Lactate Dehydrogenase Troponin T C-Reactive Protein Total Protein Albumin Prealbumin Triglycerides Cholesterol LDL Cholesterol Direct HDL Cholesterol PTH Intact Urine pH Urine WBC (Auto) Urine Creatinine Urine Total Protein Fluid Total Protein Vancomycin Trough Rheumatoid Factor Complement C4 Miscellaneous Test Crossmatch See Detail 10/25/16 10/25/16 10/25/16 04:00 04:00 04:00 WBC 14.2 H RBC 2.98 L Hgb 9.0 L Hct 26.2 L MCV MCH MCHC RDW 16.6 H Plt Count Lymph % (Auto) Pope % (Auto) 10.7 H Lymph # Pope # 1.5 H Baso # Seg Neutrophils % 73.6 H Seg Neuts % (Manual) Lymphocytes % (Manual) Monocytes % (Manual) Eosinophils % (Manual) Basophils % (Manual) Nucleated RBC % Seg Neutrophils # 10.5 H Seg Neutrophils # Man Lymphocytes # (Manual) Monocytes # (Manual) Eosinophils # (Manual) Basophils # (Manual) PT INR Fibrinogen dRVVT Confirm Interp Factor V Activity POC ABG pH POC ABG pCO2 POC ABG pO2 ABG pO2 ABG HCO3 ABG Base Excess ABG Hemoglobin Oxyhemoglobin Sodium 132 L Potassium Chloride 94.7 L Carbon Dioxide BUN 51 H Creatinine 1.6 H Glucose 130 H POC Glucose Lactic Acid Calcium 8.3 L Phosphorus 1.60 L D Magnesium Direct Bilirubin AST ALT Alkaline Phosphatase Lactate Dehydrogenase Troponin T C-Reactive Protein Total Protein Albumin Prealbumin Triglycerides Cholesterol LDL Cholesterol Direct HDL Cholesterol PTH Intact Urine pH Urine WBC (Auto) Urine Creatinine Urine Total Protein Fluid Total Protein Vancomycin Trough Rheumatoid Factor Complement C4 Miscellaneous Test Crossmatch 10/25/16 10/25/16 10/25/16 04:32 11:48 17:22 WBC RBC Hgb Hct MCV MCH MCHC RDW Plt Count Lymph % (Auto) Pope % (Auto) Lymph # Pope # Baso # Seg Neutrophils % Seg Neuts % (Manual) Lymphocytes % (Manual) Monocytes % (Manual) Eosinophils % (Manual) Basophils % (Manual) Nucleated RBC % Seg Neutrophils # Seg Neutrophils # Man Lymphocytes # (Manual) Monocytes # (Manual) Eosinophils # (Manual) Basophils # (Manual) PT INR Fibrinogen dRVVT Confirm Interp Factor V Activity POC ABG pH POC ABG pCO2 POC ABG pO2 ABG pO2 ABG HCO3 ABG Base Excess ABG Hemoglobin Oxyhemoglobin Sodium Potassium Chloride Carbon Dioxide BUN Creatinine Glucose POC Glucose 124 H 171 H 120 H Lactic Acid Calcium Phosphorus Magnesium Direct Bilirubin AST ALT Alkaline Phosphatase Lactate Dehydrogenase Troponin T C-Reactive Protein Total Protein Albumin Prealbumin Triglycerides Cholesterol LDL Cholesterol Direct HDL Cholesterol PTH Intact Urine pH Urine WBC (Auto) Urine Creatinine Urine Total Protein Fluid Total Protein Vancomycin Trough Rheumatoid Factor Complement C4 Miscellaneous Test Crossmatch 10/26/16 10/26/16 10/26/16 04:54 07:06 07:06 WBC 16.9 H RBC 3.06 L Hgb 9.1 L Hct 26.9 L MCV MCH MCHC RDW 16.9 H Plt Count Lymph % (Auto) Pope % (Auto) Lymph # Pope # Baso # Seg Neutrophils % Seg Neuts % (Manual) 71.0 H Lymphocytes % (Manual) 5.0 L Monocytes % (Manual) 12.0 H Eosinophils % (Manual) Basophils % (Manual) Nucleated RBC % Seg Neutrophils # Seg Neutrophils # Man 12.0 H Lymphocytes # (Manual) 0.8 L Monocytes # (Manual) 2.0 H Eosinophils # (Manual) Basophils # (Manual) PT INR Fibrinogen dRVVT Confirm Interp Factor V Activity POC ABG pH POC ABG pCO2 POC ABG pO2 ABG pO2 ABG HCO3 ABG Base Excess ABG Hemoglobin Oxyhemoglobin Sodium 135 L Potassium Chloride 97.1 L Carbon Dioxide BUN 73 H Creatinine 2.2 H Glucose 117 H POC Glucose 123 H Lactic Acid Calcium Phosphorus 1.70 L Magnesium Direct Bilirubin AST ALT Alkaline Phosphatase Lactate Dehydrogenase Troponin T C-Reactive Protein Total Protein Albumin Prealbumin Triglycerides Cholesterol LDL Cholesterol Direct HDL Cholesterol PTH Intact Urine pH Urine WBC (Auto) Urine Creatinine Urine Total Protein Fluid Total Protein Vancomycin Trough Rheumatoid Factor Complement C4 Miscellaneous Test Crossmatch 10/26/16 10/26/16 10/26/16 12:12 17:29 23:42 WBC RBC Hgb Hct MCV MCH MCHC RDW Plt Count Lymph % (Auto) Pope % (Auto) Lymph # Pope # Baso # Seg Neutrophils % Seg Neuts % (Manual) Lymphocytes % (Manual) Monocytes % (Manual) Eosinophils % (Manual) Basophils % (Manual) Nucleated RBC % Seg Neutrophils # Seg Neutrophils # Man Lymphocytes # (Manual) Monocytes # (Manual) Eosinophils # (Manual) Basophils # (Manual) PT INR Fibrinogen dRVVT Confirm Interp Factor V Activity POC ABG pH POC ABG pCO2 POC ABG pO2 ABG pO2 ABG HCO3 ABG Base Excess ABG Hemoglobin Oxyhemoglobin Sodium Potassium Chloride Carbon Dioxide BUN Creatinine Glucose POC Glucose 126 H 161 H 118 H Lactic Acid Calcium Phosphorus Magnesium Direct Bilirubin AST ALT Alkaline Phosphatase Lactate Dehydrogenase Troponin T C-Reactive Protein Total Protein Albumin Prealbumin Triglycerides Cholesterol LDL Cholesterol Direct HDL Cholesterol PTH Intact Urine pH Urine WBC (Auto) Urine Creatinine Urine Total Protein Fluid Total Protein Vancomycin Trough Rheumatoid Factor Complement C4 Miscellaneous Test Crossmatch 10/27/16 10/27/16 10/27/16 05:03 06:30 06:30 WBC 13.9 H RBC 3.09 L Hgb 9.2 L Hct 27.5 L MCV MCH MCHC RDW 17.0 H Plt Count Lymph % (Auto) Pope % (Auto) Lymph # Pope # Baso # Seg Neutrophils % Seg Neuts % (Manual) 78.0 H Lymphocytes % (Manual) Monocytes % (Manual) Eosinophils % (Manual) Basophils % (Manual) Nucleated RBC % 2.0 H Seg Neutrophils # Seg Neutrophils # Man 10.8 H Lymphocytes # (Manual) Monocytes # (Manual) 1.0 H Eosinophils # (Manual) Basophils # (Manual) PT INR Fibrinogen dRVVT Confirm Interp Factor V Activity POC ABG pH POC ABG pCO2 POC ABG pO2 ABG pO2 ABG HCO3 ABG Base Excess ABG Hemoglobin Oxyhemoglobin Sodium Potassium Chloride Carbon Dioxide BUN 40 H Creatinine 1.5 H Glucose 135 H POC Glucose 107 H Lactic Acid Calcium 8.3 L Phosphorus 1.30 L D Magnesium Direct Bilirubin AST ALT Alkaline Phosphatase Lactate Dehydrogenase Troponin T C-Reactive Protein Total Protein Albumin Prealbumin Triglycerides Cholesterol LDL Cholesterol Direct HDL Cholesterol PTH Intact Urine pH Urine WBC (Auto) Urine Creatinine Urine Total Protein Fluid Total Protein Vancomycin Trough Rheumatoid Factor Complement C4 Miscellaneous Test Crossmatch 10/27/16 10/27/16 10/27/16 13:27 18:07 23:40 WBC RBC Hgb Hct MCV MCH MCHC RDW Plt Count Lymph % (Auto) Pope % (Auto) Lymph # Pope # Baso # Seg Neutrophils % Seg Neuts % (Manual) Lymphocytes % (Manual) Monocytes % (Manual) Eosinophils % (Manual) Basophils % (Manual) Nucleated RBC % Seg Neutrophils # Seg Neutrophils # Man Lymphocytes # (Manual) Monocytes # (Manual) Eosinophils # (Manual) Basophils # (Manual) PT INR Fibrinogen dRVVT Confirm Interp Factor V Activity POC ABG pH POC ABG pCO2 POC ABG pO2 ABG pO2 ABG HCO3 ABG Base Excess ABG Hemoglobin Oxyhemoglobin Sodium Potassium Chloride Carbon Dioxide BUN Creatinine Glucose POC Glucose 117 H 121 H 118 H Lactic Acid Calcium Phosphorus Magnesium Direct Bilirubin AST ALT Alkaline Phosphatase Lactate Dehydrogenase Troponin T C-Reactive Protein Total Protein Albumin Prealbumin Triglycerides Cholesterol LDL Cholesterol Direct HDL Cholesterol PTH Intact Urine pH Urine WBC (Auto) Urine Creatinine Urine Total Protein Fluid Total Protein Vancomycin Trough Rheumatoid Factor Complement C4 Miscellaneous Test Crossmatch 10/28/16 10/28/16 10/28/16 05:48 06:45 06:45 WBC 14.7 H RBC 3.05 L Hgb 9.0 L Hct 26.9 L MCV MCH MCHC RDW 16.8 H Plt Count Lymph % (Auto) 8.2 L Pope % (Auto) 8.4 H Lymph # Pope # 1.2 H Baso # Seg Neutrophils % 81.9 H Seg Neuts % (Manual) Lymphocytes % (Manual) Monocytes % (Manual) Eosinophils % (Manual) Basophils % (Manual) Nucleated RBC % Seg Neutrophils # 12.1 H Seg Neutrophils # Man Lymphocytes # (Manual) Monocytes # (Manual) Eosinophils # (Manual) Basophils # (Manual) PT INR Fibrinogen dRVVT Confirm Interp Factor V Activity POC ABG pH POC ABG pCO2 POC ABG pO2 ABG pO2 ABG HCO3 ABG Base Excess ABG Hemoglobin Oxyhemoglobin Sodium Potassium Chloride Carbon Dioxide BUN 60 H Creatinine 1.9 H Glucose 120 H POC Glucose 114 H Lactic Acid Calcium Phosphorus Magnesium Direct Bilirubin AST ALT Alkaline Phosphatase Lactate Dehydrogenase Troponin T C-Reactive Protein Total Protein Albumin Prealbumin Triglycerides Cholesterol LDL Cholesterol Direct HDL Cholesterol PTH Intact Urine pH Urine WBC (Auto) Urine Creatinine Urine Total Protein Fluid Total Protein Vancomycin Trough Rheumatoid Factor Complement C4 Miscellaneous Test Crossmatch 10/28/16 10/28/16 10/29/16 17:08 23:50 05:10 WBC RBC Hgb Hct MCV MCH MCHC RDW Plt Count Lymph % (Auto) Pope % (Auto) Lymph # Pope # Baso # Seg Neutrophils % Seg Neuts % (Manual) Lymphocytes % (Manual) Monocytes % (Manual) Eosinophils % (Manual) Basophils % (Manual) Nucleated RBC % Seg Neutrophils # Seg Neutrophils # Man Lymphocytes # (Manual) Monocytes # (Manual) Eosinophils # (Manual) Basophils # (Manual) PT INR Fibrinogen dRVVT Confirm Interp Factor V Activity POC ABG pH POC ABG pCO2 POC ABG pO2 ABG pO2 ABG HCO3 ABG Base Excess ABG Hemoglobin Oxyhemoglobin Sodium Potassium Chloride Carbon Dioxide BUN Creatinine Glucose POC Glucose 109 H 110 H 124 H Lactic Acid Calcium Phosphorus Magnesium Direct Bilirubin AST ALT Alkaline Phosphatase Lactate Dehydrogenase Troponin T C-Reactive Protein Total Protein Albumin Prealbumin Triglycerides Cholesterol LDL Cholesterol Direct HDL Cholesterol PTH Intact Urine pH Urine WBC (Auto) Urine Creatinine Urine Total Protein Fluid Total Protein Vancomycin Trough Rheumatoid Factor Complement C4 Miscellaneous Test Crossmatch 10/29/16 10/29/16 10/29/16 07:45 07:45 12:19 WBC 14.7 H RBC 3.15 L Hgb 9.3 L Hct 28.9 L MCV MCH MCHC RDW 17.0 H Plt Count Lymph % (Auto) 11.9 L Pope % (Auto) 8.6 H Lymph # Pope # 1.3 H Baso # Seg Neutrophils % 78.1 H Seg Neuts % (Manual) Lymphocytes % (Manual) Monocytes % (Manual) Eosinophils % (Manual) Basophils % (Manual) Nucleated RBC % Seg Neutrophils # 11.4 H Seg Neutrophils # Man Lymphocytes # (Manual) Monocytes # (Manual) Eosinophils # (Manual) Basophils # (Manual) PT INR Fibrinogen dRVVT Confirm Interp Factor V Activity POC ABG pH POC ABG pCO2 POC ABG pO2 ABG pO2 ABG HCO3 ABG Base Excess ABG Hemoglobin Oxyhemoglobin Sodium Potassium 5.1 H Chloride Carbon Dioxide 19 L BUN 78 H Creatinine 2.2 H Glucose 116 H POC Glucose 118 H Lactic Acid Calcium Phosphorus Magnesium Direct Bilirubin AST ALT Alkaline Phosphatase Lactate Dehydrogenase Troponin T C-Reactive Protein Total Protein Albumin Prealbumin Triglycerides Cholesterol LDL Cholesterol Direct HDL Cholesterol PTH Intact Urine pH Urine WBC (Auto) Urine Creatinine Urine Total Protein Fluid Total Protein Vancomycin Trough Rheumatoid Factor Complement C4 Miscellaneous Test Crossmatch 10/29/16 10/30/16 10/30/16 17:49 01:52 03:28 WBC RBC Hgb Hct MCV MCH MCHC RDW Plt Count Lymph % (Auto) Pope % (Auto) Lymph # Pope # Baso # Seg Neutrophils % Seg Neuts % (Manual) Lymphocytes % (Manual) Monocytes % (Manual) Eosinophils % (Manual) Basophils % (Manual) Nucleated RBC % Seg Neutrophils # Seg Neutrophils # Man Lymphocytes # (Manual) Monocytes # (Manual) Eosinophils # (Manual) Basophils # (Manual) PT INR Fibrinogen dRVVT Confirm Interp Factor V Activity POC ABG pH POC ABG pCO2 POC ABG pO2 ABG pO2 ABG HCO3 ABG Base Excess ABG Hemoglobin Oxyhemoglobin Sodium Potassium 5.4 H Chloride 97.5 L Carbon Dioxide 19 L BUN 90 H Creatinine 2.5 H Glucose POC Glucose 120 H 129 H Lactic Acid Calcium Phosphorus 5.20 H Magnesium Direct Bilirubin AST ALT Alkaline Phosphatase Lactate Dehydrogenase Troponin T C-Reactive Protein Total Protein Albumin Prealbumin Triglycerides Cholesterol LDL Cholesterol Direct HDL Cholesterol PTH Intact Urine pH Urine WBC (Auto) Urine Creatinine Urine Total Protein Fluid Total Protein Vancomycin Trough Rheumatoid Factor Complement C4 Miscellaneous Test Crossmatch 10/30/16 10/30/16 10/30/16 03:28 08:19 08:19 WBC 11.6 H 15.9 H RBC 2.75 L 2.82 L Hgb 7.9 L 8.3 L Hct 24.2 L 25.2 L MCV MCH MCHC RDW 16.7 H 17.2 H Plt Count Lymph % (Auto) Pope % (Auto) 9.8 H Lymph # Pope # 1.1 H Baso # Seg Neutrophils % 74.2 H Seg Neuts % (Manual) Lymphocytes % (Manual) Monocytes % (Manual) Eosinophils % (Manual) Basophils % (Manual) Nucleated RBC % Seg Neutrophils # 8.6 H Seg Neutrophils # Man Lymphocytes # (Manual) Monocytes # (Manual) Eosinophils # (Manual) Basophils # (Manual) PT INR Fibrinogen dRVVT Confirm Interp Factor V Activity POC ABG pH POC ABG pCO2 POC ABG pO2 ABG pO2 ABG HCO3 ABG Base Excess ABG Hemoglobin Oxyhemoglobin Sodium Potassium 5.3 H Chloride 97.4 L Carbon Dioxide 19 L BUN 93 H Creatinine 2.6 H Glucose POC Glucose Lactic Acid Calcium Phosphorus Magnesium Direct Bilirubin AST ALT Alkaline Phosphatase Lactate Dehydrogenase Troponin T C-Reactive Protein Total Protein Albumin Prealbumin Triglycerides Cholesterol LDL Cholesterol Direct HDL Cholesterol PTH Intact Urine pH Urine WBC (Auto) Urine Creatinine Urine Total Protein Fluid Total Protein Vancomycin Trough Rheumatoid Factor Complement C4 Miscellaneous Test Crossmatch 10/30/16 10/30/16 10/31/16 17:11 23:56 00:40 WBC RBC Hgb Hct MCV MCH MCHC RDW Plt Count Lymph % (Auto) Pope % (Auto) Lymph # Pope # Baso # Seg Neutrophils % Seg Neuts % (Manual) Lymphocytes % (Manual) Monocytes % (Manual) Eosinophils % (Manual) Basophils % (Manual) Nucleated RBC % Seg Neutrophils # Seg Neutrophils # Man Lymphocytes # (Manual) Monocytes # (Manual) Eosinophils # (Manual) Basophils # (Manual) PT INR Fibrinogen dRVVT Confirm Interp Factor V Activity POC ABG pH POC ABG pCO2 POC ABG pO2 ABG pO2 ABG HCO3 ABG Base Excess ABG Hemoglobin Oxyhemoglobin Sodium Potassium Chloride Carbon Dioxide BUN Creatinine Glucose POC Glucose 106 H 117 H 120 H Lactic Acid Calcium Phosphorus Magnesium Direct Bilirubin AST ALT Alkaline Phosphatase Lactate Dehydrogenase Troponin T C-Reactive Protein Total Protein Albumin Prealbumin Triglycerides Cholesterol LDL Cholesterol Direct HDL Cholesterol PTH Intact Urine pH Urine WBC (Auto) Urine Creatinine Urine Total Protein Fluid Total Protein Vancomycin Trough Rheumatoid Factor Complement C4 Miscellaneous Test Crossmatch 10/31/16 10/31/16 10/31/16 05:43 07:15 07:15 WBC 12.1 H RBC 2.63 L Hgb 7.7 L Hct 23.3 L MCV MCH MCHC RDW 16.7 H Plt Count Lymph % (Auto) 11.7 L Pope % (Auto) 7.7 H Lymph # Pope # 0.9 H Baso # Seg Neutrophils % 78.0 H Seg Neuts % (Manual) Lymphocytes % (Manual) Monocytes % (Manual) Eosinophils % (Manual) Basophils % (Manual) Nucleated RBC % Seg Neutrophils # 9.4 H Seg Neutrophils # Man Lymphocytes # (Manual) Monocytes # (Manual) Eosinophils # (Manual) Basophils # (Manual) PT INR Fibrinogen dRVVT Confirm Interp Factor V Activity POC ABG pH POC ABG pCO2 POC ABG pO2 ABG pO2 ABG HCO3 ABG Base Excess ABG Hemoglobin Oxyhemoglobin Sodium Potassium Chloride 96.4 L Carbon Dioxide 21 L BUN 99 H Creatinine 2.6 H Glucose 144 H POC Glucose 125 H Lactic Acid Calcium Phosphorus 4.80 H Magnesium Direct Bilirubin AST ALT Alkaline Phosphatase Lactate Dehydrogenase Troponin T C-Reactive Protein Total Protein Albumin Prealbumin Triglycerides Cholesterol LDL Cholesterol Direct HDL Cholesterol PTH Intact Urine pH Urine WBC (Auto) Urine Creatinine Urine Total Protein Fluid Total Protein Vancomycin Trough Rheumatoid Factor Complement C4 Miscellaneous Test Crossmatch 10/31/16 10/31/16 11/01/16 11:46 18:34 00:20 WBC RBC Hgb Hct MCV MCH MCHC RDW Plt Count Lymph % (Auto) Pope % (Auto) Lymph # Pope # Baso # Seg Neutrophils % Seg Neuts % (Manual) Lymphocytes % (Manual) Monocytes % (Manual) Eosinophils % (Manual) Basophils % (Manual) Nucleated RBC % Seg Neutrophils # Seg Neutrophils # Man Lymphocytes # (Manual) Monocytes # (Manual) Eosinophils # (Manual) Basophils # (Manual) PT INR Fibrinogen dRVVT Confirm Interp Factor V Activity POC ABG pH POC ABG pCO2 POC ABG pO2 ABG pO2 ABG HCO3 ABG Base Excess ABG Hemoglobin Oxyhemoglobin Sodium Potassium Chloride Carbon Dioxide BUN Creatinine Glucose POC Glucose 159 H 140 H 132 H Lactic Acid Calcium Phosphorus Magnesium Direct Bilirubin AST ALT Alkaline Phosphatase Lactate Dehydrogenase Troponin T C-Reactive Protein Total Protein Albumin Prealbumin Triglycerides Cholesterol LDL Cholesterol Direct HDL Cholesterol PTH Intact Urine pH Urine WBC (Auto) Urine Creatinine Urine Total Protein Fluid Total Protein Vancomycin Trough Rheumatoid Factor Complement C4 Miscellaneous Test Crossmatch 11/01/16 11/01/16 11/01/16 04:55 04:55 06:11 WBC 11.2 H RBC 2.68 L Hgb 7.5 L Hct 23.7 L MCV MCH MCHC RDW 16.1 H Plt Count Lymph % (Auto) Pope % (Auto) 9.8 H Lymph # Pope # 1.1 H Baso # Seg Neutrophils % 70.8 H Seg Neuts % (Manual) Lymphocytes % (Manual) Monocytes % (Manual) Eosinophils % (Manual) Basophils % (Manual) Nucleated RBC % Seg Neutrophils # 7.9 H Seg Neutrophils # Man Lymphocytes # (Manual) Monocytes # (Manual) Eosinophils # (Manual) Basophils # (Manual) PT INR Fibrinogen dRVVT Confirm Interp Factor V Activity POC ABG pH POC ABG pCO2 POC ABG pO2 ABG pO2 ABG HCO3 ABG Base Excess ABG Hemoglobin Oxyhemoglobin Sodium Potassium 3.3 L D Chloride Carbon Dioxide BUN 61 H Creatinine 1.9 H Glucose 114 H POC Glucose 115 H Lactic Acid Calcium Phosphorus 1.80 L D Magnesium Direct Bilirubin AST ALT Alkaline Phosphatase Lactate Dehydrogenase Troponin T C-Reactive Protein Total Protein Albumin Prealbumin Triglycerides Cholesterol LDL Cholesterol Direct HDL Cholesterol PTH Intact Urine pH Urine WBC (Auto) Urine Creatinine Urine Total Protein Fluid Total Protein Vancomycin Trough Rheumatoid Factor Complement C4 Miscellaneous Test Crossmatch 11/01/16 11/01/16 11/01/16 12:29 18:23 23:58 WBC RBC Hgb Hct MCV MCH MCHC RDW Plt Count Lymph % (Auto) Pope % (Auto) Lymph # Pope # Baso # Seg Neutrophils % Seg Neuts % (Manual) Lymphocytes % (Manual) Monocytes % (Manual) Eosinophils % (Manual) Basophils % (Manual) Nucleated RBC % Seg Neutrophils # Seg Neutrophils # Man Lymphocytes # (Manual) Monocytes # (Manual) Eosinophils # (Manual) Basophils # (Manual) PT INR Fibrinogen dRVVT Confirm Interp Factor V Activity POC ABG pH POC ABG pCO2 POC ABG pO2 ABG pO2 ABG HCO3 ABG Base Excess ABG Hemoglobin Oxyhemoglobin Sodium Potassium Chloride Carbon Dioxide BUN Creatinine Glucose POC Glucose 142 H 143 H 128 H Lactic Acid Calcium Phosphorus Magnesium Direct Bilirubin AST ALT Alkaline Phosphatase Lactate Dehydrogenase Troponin T C-Reactive Protein Total Protein Albumin Prealbumin Triglycerides Cholesterol LDL Cholesterol Direct HDL Cholesterol PTH Intact Urine pH Urine WBC (Auto) Urine Creatinine Urine Total Protein Fluid Total Protein Vancomycin Trough Rheumatoid Factor Complement C4 Miscellaneous Test Crossmatch 11/02/16 11/02/16 11/02/16 04:16 05:29 11:58 WBC RBC Hgb Hct MCV MCH MCHC RDW Plt Count Lymph % (Auto) Pope % (Auto) Lymph # Pope # Baso # Seg Neutrophils % Seg Neuts % (Manual) Lymphocytes % (Manual) Monocytes % (Manual) Eosinophils % (Manual) Basophils % (Manual) Nucleated RBC % Seg Neutrophils # Seg Neutrophils # Man Lymphocytes # (Manual) Monocytes # (Manual) Eosinophils # (Manual) Basophils # (Manual) PT INR Fibrinogen dRVVT Confirm Interp Factor V Activity POC ABG pH POC ABG pCO2 POC ABG pO2 ABG pO2 ABG HCO3 ABG Base Excess ABG Hemoglobin Oxyhemoglobin Sodium Potassium 3.1 L Chloride Carbon Dioxide BUN 73 H Creatinine 2.3 H Glucose 112 H POC Glucose 135 H 149 H Lactic Acid Calcium Phosphorus Magnesium Direct Bilirubin AST ALT Alkaline Phosphatase Lactate Dehydrogenase Troponin T C-Reactive Protein Total Protein Albumin Prealbumin Triglycerides Cholesterol LDL Cholesterol Direct HDL Cholesterol PTH Intact Urine pH Urine WBC (Auto) Urine Creatinine Urine Total Protein Fluid Total Protein Vancomycin Trough Rheumatoid Factor Complement C4 Miscellaneous Test Crossmatch 11/02/16 11/02/16 11/03/16 17:42 22:54 06:00 WBC RBC Hgb Hct MCV MCH MCHC RDW Plt Count Lymph % (Auto) Pope % (Auto) Lymph # Pope # Baso # Seg Neutrophils % Seg Neuts % (Manual) Lymphocytes % (Manual) Monocytes % (Manual) Eosinophils % (Manual) Basophils % (Manual) Nucleated RBC % Seg Neutrophils # Seg Neutrophils # Man Lymphocytes # (Manual) Monocytes # (Manual) Eosinophils # (Manual) Basophils # (Manual) PT INR Fibrinogen dRVVT Confirm Interp Factor V Activity POC ABG pH POC ABG pCO2 POC ABG pO2 ABG pO2 ABG HCO3 ABG Base Excess ABG Hemoglobin Oxyhemoglobin Sodium Potassium Chloride 96.7 L Carbon Dioxide BUN 41 H Creatinine 1.5 H Glucose 145 H POC Glucose 182 H 115 H Lactic Acid Calcium Phosphorus 1.60 L D Magnesium 1.50 L Direct Bilirubin AST ALT Alkaline Phosphatase Lactate Dehydrogenase Troponin T C-Reactive Protein Total Protein Albumin Prealbumin Triglycerides Cholesterol LDL Cholesterol Direct HDL Cholesterol PTH Intact Urine pH Urine WBC (Auto) Urine Creatinine Urine Total Protein Fluid Total Protein Vancomycin Trough Rheumatoid Factor Complement C4 Miscellaneous Test Crossmatch 11/03/16 11/03/16 11/03/16 11:53 17:45 23:37 WBC RBC Hgb Hct MCV MCH MCHC RDW Plt Count Lymph % (Auto) Pope % (Auto) Lymph # Pope # Baso # Seg Neutrophils % Seg Neuts % (Manual) Lymphocytes % (Manual) Monocytes % (Manual) Eosinophils % (Manual) Basophils % (Manual) Nucleated RBC % Seg Neutrophils # Seg Neutrophils # Man Lymphocytes # (Manual) Monocytes # (Manual) Eosinophils # (Manual) Basophils # (Manual) PT INR Fibrinogen dRVVT Confirm Interp Factor V Activity POC ABG pH POC ABG pCO2 POC ABG pO2 ABG pO2 ABG HCO3 ABG Base Excess ABG Hemoglobin Oxyhemoglobin Sodium Potassium Chloride Carbon Dioxide BUN Creatinine Glucose POC Glucose 131 H 134 H 113 H Lactic Acid Calcium Phosphorus Magnesium Direct Bilirubin AST ALT Alkaline Phosphatase Lactate Dehydrogenase Troponin T C-Reactive Protein Total Protein Albumin Prealbumin Triglycerides Cholesterol LDL Cholesterol Direct HDL Cholesterol PTH Intact Urine pH Urine WBC (Auto) Urine Creatinine Urine Total Protein Fluid Total Protein Vancomycin Trough Rheumatoid Factor Complement C4 Miscellaneous Test Crossmatch 11/04/16 11/04/16 11/04/16 05:41 06:00 12:10 WBC RBC Hgb Hct MCV MCH MCHC RDW Plt Count Lymph % (Auto) Pope % (Auto) Lymph # Pope # Baso # Seg Neutrophils % Seg Neuts % (Manual) Lymphocytes % (Manual) Monocytes % (Manual) Eosinophils % (Manual) Basophils % (Manual) Nucleated RBC % Seg Neutrophils # Seg Neutrophils # Man Lymphocytes # (Manual) Monocytes # (Manual) Eosinophils # (Manual) Basophils # (Manual) PT INR Fibrinogen dRVVT Confirm Interp Factor V Activity POC ABG pH POC ABG pCO2 POC ABG pO2 ABG pO2 ABG HCO3 ABG Base Excess ABG Hemoglobin Oxyhemoglobin Sodium Potassium Chloride 96.7 L Carbon Dioxide BUN 52 H Creatinine 1.9 H Glucose 126 H POC Glucose 137 H 191 H Lactic Acid Calcium Phosphorus Magnesium Direct Bilirubin AST ALT Alkaline Phosphatase Lactate Dehydrogenase Troponin T C-Reactive Protein Total Protein Albumin Prealbumin Triglycerides Cholesterol LDL Cholesterol Direct HDL Cholesterol PTH Intact Urine pH Urine WBC (Auto) Urine Creatinine Urine Total Protein Fluid Total Protein Vancomycin Trough Rheumatoid Factor Complement C4 Miscellaneous Test Crossmatch 11/04/16 11/05/16 11/05/16 22:57 03:10 05:10 WBC RBC Hgb Hct MCV MCH MCHC RDW Plt Count Lymph % (Auto) Pope % (Auto) Lymph # Pope # Baso # Seg Neutrophils % Seg Neuts % (Manual) Lymphocytes % (Manual) Monocytes % (Manual) Eosinophils % (Manual) Basophils % (Manual) Nucleated RBC % Seg Neutrophils # Seg Neutrophils # Man Lymphocytes # (Manual) Monocytes # (Manual) Eosinophils # (Manual) Basophils # (Manual) PT INR Fibrinogen dRVVT Confirm Interp Factor V Activity POC ABG pH POC ABG pCO2 POC ABG pO2 ABG pO2 ABG HCO3 ABG Base Excess ABG Hemoglobin Oxyhemoglobin Sodium 136 L Potassium Chloride 97.2 L Carbon Dioxide BUN 32 H Creatinine 1.3 H Glucose 123 H POC Glucose 125 H 108 H Lactic Acid Calcium 7.8 L Phosphorus Magnesium Direct Bilirubin AST ALT Alkaline Phosphatase Lactate Dehydrogenase Troponin T C-Reactive Protein Total Protein Albumin Prealbumin Triglycerides Cholesterol LDL Cholesterol Direct HDL Cholesterol PTH Intact Urine pH Urine WBC (Auto) Urine Creatinine Urine Total Protein Fluid Total Protein Vancomycin Trough Rheumatoid Factor Complement C4 Miscellaneous Test Crossmatch 11/05/16 11/05/16 11/05/16 12:23 13:09 13:25 WBC RBC Hgb Hct MCV MCH MCHC RDW Plt Count Lymph % (Auto) Pope % (Auto) Lymph # Pope # Baso # Seg Neutrophils % Seg Neuts % (Manual) Lymphocytes % (Manual) Monocytes % (Manual) Eosinophils % (Manual) Basophils % (Manual) Nucleated RBC % Seg Neutrophils # Seg Neutrophils # Man Lymphocytes # (Manual) Monocytes # (Manual) Eosinophils # (Manual) Basophils # (Manual) PT INR Fibrinogen dRVVT Confirm Interp Factor V Activity POC ABG pH POC ABG pCO2 POC ABG pO2 ABG pO2 ABG HCO3 ABG Base Excess ABG Hemoglobin Oxyhemoglobin Sodium Potassium Chloride Carbon Dioxide BUN Creatinine Glucose POC Glucose 124 H Lactic Acid Calcium Phosphorus Magnesium Direct Bilirubin AST ALT Alkaline Phosphatase Lactate Dehydrogenase Troponin T C-Reactive Protein 11.40 H Total Protein Albumin Prealbumin Triglycerides Cholesterol LDL Cholesterol Direct HDL Cholesterol PTH Intact Urine pH 9.0 H Urine WBC (Auto) Urine Creatinine Urine Total Protein Fluid Total Protein Vancomycin Trough Rheumatoid Factor Complement C4 Miscellaneous Test Crossmatch 11/05/16 11/05/16 11/05/16 13:25 17:54 23:42 WBC RBC Hgb Hct MCV MCH MCHC RDW Plt Count Lymph % (Auto) Pope % (Auto) Lymph # Pope # Baso # Seg Neutrophils % Seg Neuts % (Manual) Lymphocytes % (Manual) Monocytes % (Manual) Eosinophils % (Manual) Basophils % (Manual) Nucleated RBC % Seg Neutrophils # Seg Neutrophils # Man Lymphocytes # (Manual) Monocytes # (Manual) Eosinophils # (Manual) Basophils # (Manual) PT INR Fibrinogen dRVVT Confirm Interp Factor V Activity POC ABG pH POC ABG pCO2 POC ABG pO2 ABG pO2 ABG HCO3 ABG Base Excess ABG Hemoglobin Oxyhemoglobin Sodium Potassium Chloride Carbon Dioxide BUN Creatinine Glucose POC Glucose 114 H 134 H Lactic Acid Calcium Phosphorus Magnesium Direct Bilirubin AST ALT Alkaline Phosphatase Lactate Dehydrogenase Troponin T C-Reactive Protein Total Protein Albumin Prealbumin Triglycerides Cholesterol LDL Cholesterol Direct HDL Cholesterol PTH Intact Urine pH Urine WBC (Auto) Urine Creatinine Urine Total Protein Fluid Total Protein Vancomycin Trough Rheumatoid Factor Complement C4 Miscellaneous Test Flexitest 1 H Crossmatch 11/06/16 11/06/16 11/06/16 04:56 06:25 06:25 WBC RBC 2.50 L Hgb 7.3 L Hct 22.5 L MCV MCH MCHC RDW 16.9 H Plt Count Lymph % (Auto) Pope % (Auto) 10.5 H Lymph # Pope # 1.1 H Baso # Seg Neutrophils % Seg Neuts % (Manual) Lymphocytes % (Manual) Monocytes % (Manual) Eosinophils % (Manual) Basophils % (Manual) Nucleated RBC % Seg Neutrophils # Seg Neutrophils # Man Lymphocytes # (Manual) Monocytes # (Manual) Eosinophils # (Manual) Basophils # (Manual) PT INR Fibrinogen dRVVT Confirm Interp Factor V Activity POC ABG pH POC ABG pCO2 POC ABG pO2 ABG pO2 ABG HCO3 ABG Base Excess ABG Hemoglobin Oxyhemoglobin Sodium Potassium 5.1 H Chloride 95.9 L Carbon Dioxide BUN 52 H Creatinine 1.8 H Glucose 117 H POC Glucose 120 H Lactic Acid Calcium Phosphorus Magnesium Direct Bilirubin AST 103 H ALT 77 H Alkaline Phosphatase 285 H Lactate Dehydrogenase Troponin T C-Reactive Protein Total Protein 6.2 L Albumin 1.8 L Prealbumin 0.180 L Triglycerides Cholesterol LDL Cholesterol Direct HDL Cholesterol PTH Intact Urine pH Urine WBC (Auto) Urine Creatinine Urine Total Protein Fluid Total Protein Vancomycin Trough Rheumatoid Factor Complement C4 Miscellaneous Test Crossmatch 11/06/16 11/06/16 11/06/16 11:56 17:14 23:52 WBC RBC Hgb Hct MCV MCH MCHC RDW Plt Count Lymph % (Auto) Pope % (Auto) Lymph # Pope # Baso # Seg Neutrophils % Seg Neuts % (Manual) Lymphocytes % (Manual) Monocytes % (Manual) Eosinophils % (Manual) Basophils % (Manual) Nucleated RBC % Seg Neutrophils # Seg Neutrophils # Man Lymphocytes # (Manual) Monocytes # (Manual) Eosinophils # (Manual) Basophils # (Manual) PT INR Fibrinogen dRVVT Confirm Interp Factor V Activity POC ABG pH POC ABG pCO2 POC ABG pO2 ABG pO2 ABG HCO3 ABG Base Excess ABG Hemoglobin Oxyhemoglobin Sodium Potassium Chloride Carbon Dioxide BUN Creatinine Glucose POC Glucose 141 H 125 H 130 H Lactic Acid Calcium Phosphorus Magnesium Direct Bilirubin AST ALT Alkaline Phosphatase Lactate Dehydrogenase Troponin T C-Reactive Protein Total Protein Albumin Prealbumin Triglycerides Cholesterol LDL Cholesterol Direct HDL Cholesterol PTH Intact Urine pH Urine WBC (Auto) Urine Creatinine Urine Total Protein Fluid Total Protein Vancomycin Trough Rheumatoid Factor Complement C4 Miscellaneous Test Crossmatch 11/07/16 11/07/16 11/07/16 06:30 06:30 09:37 WBC RBC 2.18 L Hgb 6.3 L Hct 19.7 L* MCV MCH MCHC RDW 16.8 H Plt Count Lymph % (Auto) Pope % (Auto) 10.0 H Lymph # Pope # 1.0 H Baso # Seg Neutrophils % Seg Neuts % (Manual) Lymphocytes % (Manual) Monocytes % (Manual) Eosinophils % (Manual) Basophils % (Manual) Nucleated RBC % Seg Neutrophils # Seg Neutrophils # Man Lymphocytes # (Manual) Monocytes # (Manual) Eosinophils # (Manual) Basophils # (Manual) PT INR Fibrinogen dRVVT Confirm Interp Factor V Activity POC ABG pH POC ABG pCO2 POC ABG pO2 ABG pO2 ABG HCO3 ABG Base Excess ABG Hemoglobin Oxyhemoglobin Sodium 135 L Potassium Chloride 95.6 L Carbon Dioxide BUN 70 H Creatinine 2.0 H Glucose 126 H POC Glucose Lactic Acid Calcium Phosphorus Magnesium Direct Bilirubin AST ALT Alkaline Phosphatase Lactate Dehydrogenase Troponin T C-Reactive Protein Total Protein Albumin Prealbumin Triglycerides Cholesterol LDL Cholesterol Direct HDL Cholesterol PTH Intact Urine pH Urine WBC (Auto) Urine Creatinine Urine Total Protein Fluid Total Protein Vancomycin Trough Rheumatoid Factor Complement C4 Miscellaneous Test Crossmatch See Detail 11/07/16 11/07/16 11/07/16 12:52 18:51 21:26 WBC RBC Hgb Hct MCV MCH MCHC RDW Plt Count Lymph % (Auto) Pope % (Auto) Lymph # Pope # Baso # Seg Neutrophils % Seg Neuts % (Manual) Lymphocytes % (Manual) Monocytes % (Manual) Eosinophils % (Manual) Basophils % (Manual) Nucleated RBC % Seg Neutrophils # Seg Neutrophils # Man Lymphocytes # (Manual) Monocytes # (Manual) Eosinophils # (Manual) Basophils # (Manual) PT INR Fibrinogen dRVVT Confirm Interp Factor V Activity POC ABG pH 7.523 H POC ABG pCO2 34.6 L POC ABG pO2 53 L ABG pO2 ABG HCO3 ABG Base Excess ABG Hemoglobin Oxyhemoglobin Sodium Potassium Chloride Carbon Dioxide BUN Creatinine Glucose POC Glucose 142 H 155 H Lactic Acid Calcium Phosphorus Magnesium Direct Bilirubin AST ALT Alkaline Phosphatase Lactate Dehydrogenase Troponin T C-Reactive Protein Total Protein Albumin Prealbumin Triglycerides Cholesterol LDL Cholesterol Direct HDL Cholesterol PTH Intact Urine pH Urine WBC (Auto) Urine Creatinine Urine Total Protein Fluid Total Protein Vancomycin Trough Rheumatoid Factor Complement C4 Miscellaneous Test Crossmatch 11/07/16 11/08/16 11/08/16 21:34 13:03 23:37 WBC RBC 2.63 L Hgb 7.7 L Hct 22.7 L MCV MCH MCHC RDW 17.0 H Plt Count Lymph % (Auto) Pope % (Auto) Lymph # Pope # Baso # Seg Neutrophils % Seg Neuts % (Manual) Lymphocytes % (Manual) Monocytes % (Manual) Eosinophils % (Manual) Basophils % (Manual) Nucleated RBC % Seg Neutrophils # Seg Neutrophils # Man Lymphocytes # (Manual) Monocytes # (Manual) Eosinophils # (Manual) Basophils # (Manual) PT INR Fibrinogen dRVVT Confirm Interp Factor V Activity POC ABG pH 7.478 H POC ABG pCO2 34.0 L POC ABG pO2 50 L ABG pO2 ABG HCO3 ABG Base Excess ABG Hemoglobin Oxyhemoglobin Sodium Potassium Chloride Carbon Dioxide BUN Creatinine Glucose POC Glucose 113 H Lactic Acid Calcium Phosphorus Magnesium Direct Bilirubin AST ALT Alkaline Phosphatase Lactate Dehydrogenase Troponin T C-Reactive Protein Total Protein Albumin Prealbumin Triglycerides Cholesterol LDL Cholesterol Direct HDL Cholesterol PTH Intact Urine pH Urine WBC (Auto) Urine Creatinine Urine Total Protein Fluid Total Protein Vancomycin Trough Rheumatoid Factor Complement C4 Miscellaneous Test Crossmatch 11/09/16 11/09/16 11/09/16 04:35 10:15 18:21 WBC RBC 2.68 L Hgb 7.8 L Hct 23.3 L MCV MCH MCHC RDW 17.0 H Plt Count Lymph % (Auto) Pope % (Auto) 12.1 H Lymph # Pope # 1.1 H Baso # Seg Neutrophils % Seg Neuts % (Manual) Lymphocytes % (Manual) Monocytes % (Manual) Eosinophils % (Manual) Basophils % (Manual) Nucleated RBC % Seg Neutrophils # Seg Neutrophils # Man Lymphocytes # (Manual) Monocytes # (Manual) Eosinophils # (Manual) Basophils # (Manual) PT INR Fibrinogen dRVVT Confirm Interp Factor V Activity POC ABG pH POC ABG pCO2 POC ABG pO2 ABG pO2 ABG HCO3 ABG Base Excess ABG Hemoglobin Oxyhemoglobin Sodium Potassium Chloride Carbon Dioxide BUN 51 H Creatinine 1.8 H Glucose POC Glucose 60 L Lactic Acid Calcium 8.3 L Phosphorus Magnesium Direct Bilirubin AST ALT Alkaline Phosphatase Lactate Dehydrogenase Troponin T C-Reactive Protein Total Protein Albumin Prealbumin Triglycerides Cholesterol LDL Cholesterol Direct HDL Cholesterol PTH Intact Urine pH Urine WBC (Auto) Urine Creatinine Urine Total Protein Fluid Total Protein Vancomycin Trough Rheumatoid Factor Complement C4 Miscellaneous Test Crossmatch 11/09/16 11/10/16 11/10/16 18:55 07:00 11:51 WBC RBC Hgb Hct MCV MCH MCHC RDW Plt Count Lymph % (Auto) Pope % (Auto) Lymph # Pope # Baso # Seg Neutrophils % Seg Neuts % (Manual) Lymphocytes % (Manual) Monocytes % (Manual) Eosinophils % (Manual) Basophils % (Manual) Nucleated RBC % Seg Neutrophils # Seg Neutrophils # Man Lymphocytes # (Manual) Monocytes # (Manual) Eosinophils # (Manual) Basophils # (Manual) PT INR Fibrinogen dRVVT Confirm Interp Factor V Activity POC ABG pH POC ABG pCO2 POC ABG pO2 ABG pO2 ABG HCO3 ABG Base Excess ABG Hemoglobin Oxyhemoglobin Sodium Potassium 3.0 L D Chloride 97.4 L Carbon Dioxide BUN 28 H Creatinine 1.3 H Glucose POC Glucose 68 L 120 H Lactic Acid Calcium 7.8 L Phosphorus Magnesium Direct Bilirubin AST ALT Alkaline Phosphatase Lactate Dehydrogenase Troponin T C-Reactive Protein Total Protein Albumin Prealbumin Triglycerides Cholesterol LDL Cholesterol Direct HDL Cholesterol PTH Intact Urine pH Urine WBC (Auto) Urine Creatinine Urine Total Protein Fluid Total Protein Vancomycin Trough Rheumatoid Factor Complement C4 Miscellaneous Test Crossmatch 11/10/16 11/11/16 11/11/16 14:20 06:59 06:59 WBC RBC 2.81 L Hgb 8.1 L Hct 24.4 L MCV MCH MCHC RDW 16.4 H Plt Count Lymph % (Auto) Pope % (Auto) 10.8 H Lymph # Pope # 1.0 H Baso # Seg Neutrophils % Seg Neuts % (Manual) Lymphocytes % (Manual) Monocytes % (Manual) Eosinophils % (Manual) Basophils % (Manual) Nucleated RBC % Seg Neutrophils # Seg Neutrophils # Man Lymphocytes # (Manual) Monocytes # (Manual) Eosinophils # (Manual) Basophils # (Manual) PT INR Fibrinogen dRVVT Confirm Interp Factor V Activity POC ABG pH POC ABG pCO2 POC ABG pO2 ABG pO2 ABG HCO3 ABG Base Excess ABG Hemoglobin Oxyhemoglobin Sodium Potassium Chloride Carbon Dioxide BUN Creatinine Glucose POC Glucose Lactic Acid Calcium Phosphorus Magnesium Direct Bilirubin AST ALT Alkaline Phosphatase Lactate Dehydrogenase 196 H Troponin T C-Reactive Protein Total Protein 6.1 L Albumin Prealbumin Triglycerides Cholesterol LDL Cholesterol Direct HDL Cholesterol PTH Intact Urine pH Urine WBC (Auto) Urine Creatinine Urine Total Protein Fluid Total Protein < 3.0 L Vancomycin Trough Rheumatoid Factor Complement C4 Miscellaneous Test Crossmatch 11/11/16 11/11/16 11/12/16 06:59 09:50 04:00 WBC RBC Hgb Hct MCV MCH MCHC RDW Plt Count Lymph % (Auto) Pope % (Auto) Lymph # Pope # Baso # Seg Neutrophils % Seg Neuts % (Manual) Lymphocytes % (Manual) Monocytes % (Manual) Eosinophils % (Manual) Basophils % (Manual) Nucleated RBC % Seg Neutrophils # Seg Neutrophils # Man Lymphocytes # (Manual) Monocytes # (Manual) Eosinophils # (Manual) Basophils # (Manual) PT INR 1.18 H Fibrinogen dRVVT Confirm Interp Factor V Activity POC ABG pH POC ABG pCO2 POC ABG pO2 ABG pO2 ABG HCO3 ABG Base Excess ABG Hemoglobin Oxyhemoglobin Sodium 136 L 133 L Potassium Chloride 96.1 L 94.8 L Carbon Dioxide 21 L BUN 37 H 42 H Creatinine 1.8 H 2.0 H Glucose POC Glucose Lactic Acid Calcium Phosphorus Magnesium Direct Bilirubin AST ALT Alkaline Phosphatase Lactate Dehydrogenase Troponin T C-Reactive Protein Total Protein Albumin Prealbumin Triglycerides Cholesterol LDL Cholesterol Direct HDL Cholesterol PTH Intact Urine pH Urine WBC (Auto) Urine Creatinine Urine Total Protein Fluid Total Protein Vancomycin Trough Rheumatoid Factor Complement C4 Miscellaneous Test Crossmatch 11/12/16 11/12/16 11/13/16 04:00 23:55 05:53 WBC RBC Hgb 8.9 L Hct 27.2 L MCV MCH MCHC RDW Plt Count Lymph % (Auto) Pope % (Auto) Lymph # Pope # Baso # Seg Neutrophils % Seg Neuts % (Manual) Lymphocytes % (Manual) Monocytes % (Manual) Eosinophils % (Manual) Basophils % (Manual) Nucleated RBC % Seg Neutrophils # Seg Neutrophils # Man Lymphocytes # (Manual) Monocytes # (Manual) Eosinophils # (Manual) Basophils # (Manual) PT INR Fibrinogen dRVVT Confirm Interp Factor V Activity POC ABG pH POC ABG pCO2 POC ABG pO2 ABG pO2 ABG HCO3 ABG Base Excess ABG Hemoglobin Oxyhemoglobin Sodium Potassium Chloride Carbon Dioxide BUN Creatinine Glucose POC Glucose 132 H 120 H Lactic Acid Calcium Phosphorus Magnesium Direct Bilirubin AST ALT Alkaline Phosphatase Lactate Dehydrogenase Troponin T C-Reactive Protein Total Protein Albumin Prealbumin Triglycerides Cholesterol LDL Cholesterol Direct HDL Cholesterol PTH Intact Urine pH Urine WBC (Auto) Urine Creatinine Urine Total Protein Fluid Total Protein Vancomycin Trough Rheumatoid Factor Complement C4 Miscellaneous Test Crossmatch 11/13/16 11/13/16 11/13/16 11:43 17:09 23:41 WBC RBC Hgb Hct MCV MCH MCHC RDW Plt Count Lymph % (Auto) Pope % (Auto) Lymph # Pope # Baso # Seg Neutrophils % Seg Neuts % (Manual) Lymphocytes % (Manual) Monocytes % (Manual) Eosinophils % (Manual) Basophils % (Manual) Nucleated RBC % Seg Neutrophils # Seg Neutrophils # Man Lymphocytes # (Manual) Monocytes # (Manual) Eosinophils # (Manual) Basophils # (Manual) PT INR Fibrinogen dRVVT Confirm Interp Factor V Activity POC ABG pH POC ABG pCO2 POC ABG pO2 ABG pO2 ABG HCO3 ABG Base Excess ABG Hemoglobin Oxyhemoglobin Sodium Potassium Chloride Carbon Dioxide BUN Creatinine Glucose POC Glucose 114 H 113 H 108 H Lactic Acid Calcium Phosphorus Magnesium Direct Bilirubin AST ALT Alkaline Phosphatase Lactate Dehydrogenase Troponin T C-Reactive Protein Total Protein Albumin Prealbumin Triglycerides Cholesterol LDL Cholesterol Direct HDL Cholesterol PTH Intact Urine pH Urine WBC (Auto) Urine Creatinine Urine Total Protein Fluid Total Protein Vancomycin Trough Rheumatoid Factor Complement C4 Miscellaneous Test Crossmatch 11/13/16 11/15/16 11/15/16 Unknown 00:37 03:30 WBC 11.2 H RBC 2.72 L Hgb 7.6 L Hct 23.4 L MCV MCH MCHC RDW 16.5 H Plt Count Lymph % (Auto) Pope % (Auto) Lymph # Pope # Baso # Seg Neutrophils % Seg Neuts % (Manual) Lymphocytes % (Manual) Monocytes % (Manual) Eosinophils % (Manual) Basophils % (Manual) Nucleated RBC % Seg Neutrophils # Seg Neutrophils # Man Lymphocytes # (Manual) Monocytes # (Manual) Eosinophils # (Manual) Basophils # (Manual) PT INR Fibrinogen dRVVT Confirm Interp Factor V Activity POC ABG pH POC ABG pCO2 POC ABG pO2 ABG pO2 ABG HCO3 ABG Base Excess ABG Hemoglobin Oxyhemoglobin Sodium 135 L Potassium Chloride 95.2 L Carbon Dioxide BUN 52 H Creatinine 2.2 H Glucose POC Glucose 108 H Lactic Acid Calcium Phosphorus Magnesium Direct Bilirubin AST ALT Alkaline Phosphatase Lactate Dehydrogenase Troponin T C-Reactive Protein Total Protein Albumin Prealbumin Triglycerides Cholesterol LDL Cholesterol Direct HDL Cholesterol PTH Intact Urine pH Urine WBC (Auto) Urine Creatinine Urine Total Protein Fluid Total Protein Vancomycin Trough Rheumatoid Factor Complement C4 Miscellaneous Test Crossmatch 11/15/16 11/15/16 11/15/16 03:30 05:04 11:50 WBC RBC Hgb Hct MCV MCH MCHC RDW Plt Count Lymph % (Auto) Pope % (Auto) Lymph # Pope # Baso # Seg Neutrophils % Seg Neuts % (Manual) Lymphocytes % (Manual) Monocytes % (Manual) Eosinophils % (Manual) Basophils % (Manual) Nucleated RBC % Seg Neutrophils # Seg Neutrophils # Man Lymphocytes # (Manual) Monocytes # (Manual) Eosinophils # (Manual) Basophils # (Manual) PT INR Fibrinogen dRVVT Confirm Interp Factor V Activity POC ABG pH POC ABG pCO2 POC ABG pO2 ABG pO2 ABG HCO3 ABG Base Excess ABG Hemoglobin Oxyhemoglobin Sodium Potassium 3.4 L Chloride Carbon Dioxide BUN 25 H Creatinine 1.5 H Glucose 103 H POC Glucose 121 H 144 H Lactic Acid Calcium Phosphorus Magnesium Direct Bilirubin AST ALT Alkaline Phosphatase Lactate Dehydrogenase Troponin T C-Reactive Protein Total Protein Albumin Prealbumin Triglycerides Cholesterol LDL Cholesterol Direct HDL Cholesterol PTH Intact Urine pH Urine WBC (Auto) Urine Creatinine Urine Total Protein Fluid Total Protein Vancomycin Trough Rheumatoid Factor Complement C4 Miscellaneous Test Crossmatch 11/15/16 11/15/16 11/16/16 21:28 23:20 11:44 WBC RBC Hgb Hct MCV MCH MCHC RDW Plt Count Lymph % (Auto) Pope % (Auto) Lymph # Pope # Baso # Seg Neutrophils % Seg Neuts % (Manual) Lymphocytes % (Manual) Monocytes % (Manual) Eosinophils % (Manual) Basophils % (Manual) Nucleated RBC % Seg Neutrophils # Seg Neutrophils # Man Lymphocytes # (Manual) Monocytes # (Manual) Eosinophils # (Manual) Basophils # (Manual) PT INR Fibrinogen dRVVT Confirm Interp Factor V Activity POC ABG pH 7.462 H POC ABG pCO2 POC ABG pO2 71 L ABG pO2 ABG HCO3 ABG Base Excess ABG Hemoglobin Oxyhemoglobin Sodium Potassium Chloride Carbon Dioxide BUN Creatinine Glucose POC Glucose 116 H 133 H Lactic Acid Calcium Phosphorus Magnesium Direct Bilirubin AST ALT Alkaline Phosphatase Lactate Dehydrogenase Troponin T C-Reactive Protein Total Protein Albumin Prealbumin Triglycerides Cholesterol LDL Cholesterol Direct HDL Cholesterol PTH Intact Urine pH Urine WBC (Auto) Urine Creatinine Urine Total Protein Fluid Total Protein Vancomycin Trough Rheumatoid Factor Complement C4 Miscellaneous Test Crossmatch 11/16/16 11/16/16 11/16/16 12:20 17:05 23:35 WBC 11.7 H RBC 2.73 L Hgb 7.6 L Hct 23.7 L MCV MCH MCHC RDW 16.6 H Plt Count Lymph % (Auto) Pope % (Auto) Lymph # Pope # Baso # Seg Neutrophils % Seg Neuts % (Manual) Lymphocytes % (Manual) Monocytes % (Manual) Eosinophils % (Manual) Basophils % (Manual) Nucleated RBC % Seg Neutrophils # Seg Neutrophils # Man Lymphocytes # (Manual) Monocytes # (Manual) Eosinophils # (Manual) Basophils # (Manual) PT INR Fibrinogen dRVVT Confirm Interp Factor V Activity POC ABG pH POC ABG pCO2 POC ABG pO2 ABG pO2 ABG HCO3 ABG Base Excess ABG Hemoglobin Oxyhemoglobin Sodium Potassium Chloride Carbon Dioxide BUN Creatinine Glucose POC Glucose 154 H 125 H Lactic Acid Calcium Phosphorus Magnesium Direct Bilirubin AST ALT Alkaline Phosphatase Lactate Dehydrogenase Troponin T C-Reactive Protein Total Protein Albumin Prealbumin Triglycerides Cholesterol LDL Cholesterol Direct HDL Cholesterol PTH Intact Urine pH Urine WBC (Auto) Urine Creatinine Urine Total Protein Fluid Total Protein Vancomycin Trough Rheumatoid Factor Complement C4 Miscellaneous Test Crossmatch 11/17/16 11/17/16 11/17/16 03:20 03:20 03:20 WBC RBC 2.55 L Hgb 7.3 L Hct 21.9 L MCV MCH MCHC RDW 16.6 H Plt Count Lymph % (Auto) Pope % (Auto) 11.5 H Lymph # Pope # 1.1 H Baso # Seg Neutrophils % Seg Neuts % (Manual) Lymphocytes % (Manual) Monocytes % (Manual) Eosinophils % (Manual) Basophils % (Manual) Nucleated RBC % Seg Neutrophils # Seg Neutrophils # Man Lymphocytes # (Manual) Monocytes # (Manual) Eosinophils # (Manual) Basophils # (Manual) PT 16.8 H INR 1.37 H Fibrinogen dRVVT Confirm Interp Factor V Activity POC ABG pH POC ABG pCO2 POC ABG pO2 ABG pO2 ABG HCO3 ABG Base Excess ABG Hemoglobin Oxyhemoglobin Sodium Potassium 3.5 L Chloride Carbon Dioxide BUN 21 H Creatinine Glucose POC Glucose Lactic Acid Calcium 7.9 L Phosphorus Magnesium Direct Bilirubin AST ALT Alkaline Phosphatase Lactate Dehydrogenase Troponin T C-Reactive Protein Total Protein Albumin Prealbumin Triglycerides Cholesterol LDL Cholesterol Direct HDL Cholesterol PTH Intact Urine pH Urine WBC (Auto) Urine Creatinine Urine Total Protein Fluid Total Protein Vancomycin Trough Rheumatoid Factor Complement C4 Miscellaneous Test Crossmatch 11/17/16 11/17/16 11/17/16 06:34 11:21 21:22 WBC RBC Hgb Hct MCV MCH MCHC RDW Plt Count Lymph % (Auto) Pope % (Auto) Lymph # Pope # Baso # Seg Neutrophils % Seg Neuts % (Manual) Lymphocytes % (Manual) Monocytes % (Manual) Eosinophils % (Manual) Basophils % (Manual) Nucleated RBC % Seg Neutrophils # Seg Neutrophils # Man Lymphocytes # (Manual) Monocytes # (Manual) Eosinophils # (Manual) Basophils # (Manual) PT INR Fibrinogen dRVVT Confirm Interp Factor V Activity POC ABG pH 7.467 H POC ABG pCO2 POC ABG pO2 73 L ABG pO2 ABG HCO3 ABG Base Excess ABG Hemoglobin Oxyhemoglobin Sodium Potassium Chloride Carbon Dioxide BUN Creatinine Glucose POC Glucose 121 H 119 H Lactic Acid Calcium Phosphorus Magnesium Direct Bilirubin AST ALT Alkaline Phosphatase Lactate Dehydrogenase Troponin T C-Reactive Protein Total Protein Albumin Prealbumin Triglycerides Cholesterol LDL Cholesterol Direct HDL Cholesterol PTH Intact Urine pH Urine WBC (Auto) Urine Creatinine Urine Total Protein Fluid Total Protein Vancomycin Trough Rheumatoid Factor Complement C4 Miscellaneous Test Crossmatch 11/18/16 11/18/16 11/19/16 12:16 17:19 00:00 WBC RBC Hgb Hct MCV MCH MCHC RDW Plt Count Lymph % (Auto) Pope % (Auto) Lymph # Pope # Baso # Seg Neutrophils % Seg Neuts % (Manual) Lymphocytes % (Manual) Monocytes % (Manual) Eosinophils % (Manual) Basophils % (Manual) Nucleated RBC % Seg Neutrophils # Seg Neutrophils # Man Lymphocytes # (Manual) Monocytes # (Manual) Eosinophils # (Manual) Basophils # (Manual) PT INR Fibrinogen dRVVT Confirm Interp Factor V Activity POC ABG pH POC ABG pCO2 POC ABG pO2 ABG pO2 ABG HCO3 ABG Base Excess ABG Hemoglobin Oxyhemoglobin Sodium Potassium Chloride Carbon Dioxide BUN Creatinine Glucose POC Glucose 124 H 162 H 139 H Lactic Acid Calcium Phosphorus Magnesium Direct Bilirubin AST ALT Alkaline Phosphatase Lactate Dehydrogenase Troponin T C-Reactive Protein Total Protein Albumin Prealbumin Triglycerides Cholesterol LDL Cholesterol Direct HDL Cholesterol PTH Intact Urine pH Urine WBC (Auto) Urine Creatinine Urine Total Protein Fluid Total Protein Vancomycin Trough Rheumatoid Factor Complement C4 Miscellaneous Test Crossmatch 11/19/16 11/19/16 11/20/16 05:00 12:43 00:40 WBC RBC Hgb Hct MCV MCH MCHC RDW Plt Count Lymph % (Auto) Pope % (Auto) Lymph # Pope # Baso # Seg Neutrophils % Seg Neuts % (Manual) Lymphocytes % (Manual) Monocytes % (Manual) Eosinophils % (Manual) Basophils % (Manual) Nucleated RBC % Seg Neutrophils # Seg Neutrophils # Man Lymphocytes # (Manual) Monocytes # (Manual) Eosinophils # (Manual) Basophils # (Manual) PT INR Fibrinogen dRVVT Confirm Interp Factor V Activity POC ABG pH POC ABG pCO2 POC ABG pO2 ABG pO2 ABG HCO3 ABG Base Excess ABG Hemoglobin Oxyhemoglobin Sodium Potassium Chloride Carbon Dioxide BUN Creatinine Glucose POC Glucose 110 H 125 H 136 H Lactic Acid Calcium Phosphorus Magnesium Direct Bilirubin AST ALT Alkaline Phosphatase Lactate Dehydrogenase Troponin T C-Reactive Protein Total Protein Albumin Prealbumin Triglycerides Cholesterol LDL Cholesterol Direct HDL Cholesterol PTH Intact Urine pH Urine WBC (Auto) Urine Creatinine Urine Total Protein Fluid Total Protein Vancomycin Trough Rheumatoid Factor Complement C4 Miscellaneous Test Crossmatch 11/20/16 11/20/16 11/20/16 05:00 05:00 05:51 WBC 13.1 H RBC 2.74 L Hgb 7.7 L Hct 23.6 L MCV MCH MCHC RDW 16.9 H Plt Count Lymph % (Auto) Pope % (Auto) 10.8 H Lymph # Pope # 1.4 H Baso # Seg Neutrophils % Seg Neuts % (Manual) Lymphocytes % (Manual) Monocytes % (Manual) Eosinophils % (Manual) Basophils % (Manual) Nucleated RBC % Seg Neutrophils # 7.9 H Seg Neutrophils # Man Lymphocytes # (Manual) Monocytes # (Manual) Eosinophils # (Manual) Basophils # (Manual) PT INR Fibrinogen dRVVT Confirm Interp Factor V Activity POC ABG pH POC ABG pCO2 POC ABG pO2 ABG pO2 ABG HCO3 ABG Base Excess ABG Hemoglobin Oxyhemoglobin Sodium Potassium Chloride Carbon Dioxide BUN 31 H Creatinine 1.8 H Glucose 129 H POC Glucose 133 H Lactic Acid Calcium Phosphorus Magnesium Direct Bilirubin AST ALT Alkaline Phosphatase Lactate Dehydrogenase Troponin T C-Reactive Protein Total Protein Albumin Prealbumin Triglycerides Cholesterol LDL Cholesterol Direct HDL Cholesterol PTH Intact Urine pH Urine WBC (Auto) Urine Creatinine Urine Total Protein Fluid Total Protein Vancomycin Trough Rheumatoid Factor Complement C4 Miscellaneous Test Crossmatch 11/20/16 11/20/16 11/21/16 12:40 18:10 01:20 WBC RBC Hgb Hct MCV MCH MCHC RDW Plt Count Lymph % (Auto) Pope % (Auto) Lymph # Pope # Baso # Seg Neutrophils % Seg Neuts % (Manual) Lymphocytes % (Manual) Monocytes % (Manual) Eosinophils % (Manual) Basophils % (Manual) Nucleated RBC % Seg Neutrophils # Seg Neutrophils # Man Lymphocytes # (Manual) Monocytes # (Manual) Eosinophils # (Manual) Basophils # (Manual) PT INR Fibrinogen dRVVT Confirm Interp Factor V Activity POC ABG pH POC ABG pCO2 POC ABG pO2 ABG pO2 ABG HCO3 ABG Base Excess ABG Hemoglobin Oxyhemoglobin Sodium Potassium Chloride Carbon Dioxide BUN Creatinine Glucose POC Glucose 134 H 138 H 136 H Lactic Acid Calcium Phosphorus Magnesium Direct Bilirubin AST ALT Alkaline Phosphatase Lactate Dehydrogenase Troponin T C-Reactive Protein Total Protein Albumin Prealbumin Triglycerides Cholesterol LDL Cholesterol Direct HDL Cholesterol PTH Intact Urine pH Urine WBC (Auto) Urine Creatinine Urine Total Protein Fluid Total Protein Vancomycin Trough Rheumatoid Factor Complement C4 Miscellaneous Test Crossmatch 11/21/16 11/21/16 11/21/16 07:04 07:45 07:45 WBC 22.0 H RBC 2.91 L Hgb 8.2 L Hct 25.4 L MCV MCH MCHC RDW 17.1 H Plt Count Lymph % (Auto) Pope % (Auto) Lymph # Pope # Baso # Seg Neutrophils % Seg Neuts % (Manual) Lymphocytes % (Manual) 8.0 L Monocytes % (Manual) Eosinophils % (Manual) Basophils % (Manual) Nucleated RBC % Seg Neutrophils # Seg Neutrophils # Man 14.7 H Lymphocytes # (Manual) Monocytes # (Manual) 1.1 H Eosinophils # (Manual) Basophils # (Manual) PT INR Fibrinogen dRVVT Confirm Interp Factor V Activity POC ABG pH POC ABG pCO2 POC ABG pO2 ABG pO2 ABG HCO3 ABG Base Excess ABG Hemoglobin Oxyhemoglobin Sodium Potassium Chloride Carbon Dioxide BUN 42 H Creatinine 2.0 H Glucose POC Glucose 108 H Lactic Acid Calcium Phosphorus Magnesium Direct Bilirubin AST ALT Alkaline Phosphatase Lactate Dehydrogenase Troponin T C-Reactive Protein Total Protein Albumin Prealbumin Triglycerides Cholesterol LDL Cholesterol Direct HDL Cholesterol PTH Intact Urine pH Urine WBC (Auto) Urine Creatinine Urine Total Protein Fluid Total Protein Vancomycin Trough Rheumatoid Factor Complement C4 Miscellaneous Test Crossmatch 11/21/16 11/21/16 11/21/16 08:38 10:09 11:20 WBC RBC Hgb Hct MCV MCH MCHC RDW Plt Count Lymph % (Auto) Pope % (Auto) Lymph # Pope # Baso # Seg Neutrophils % Seg Neuts % (Manual) Lymphocytes % (Manual) Monocytes % (Manual) Eosinophils % (Manual) Basophils % (Manual) Nucleated RBC % Seg Neutrophils # Seg Neutrophils # Man Lymphocytes # (Manual) Monocytes # (Manual) Eosinophils # (Manual) Basophils # (Manual) PT INR Fibrinogen dRVVT Confirm Interp Factor V Activity POC ABG pH 7.346 L POC ABG pCO2 34.4 L POC ABG pO2 314 H ABG pO2 ABG HCO3 ABG Base Excess ABG Hemoglobin Oxyhemoglobin Sodium Potassium Chloride Carbon Dioxide BUN Creatinine Glucose POC Glucose 195 H 153 H Lactic Acid Calcium Phosphorus Magnesium Direct Bilirubin AST ALT Alkaline Phosphatase Lactate Dehydrogenase Troponin T C-Reactive Protein Total Protein Albumin Prealbumin Triglycerides Cholesterol LDL Cholesterol Direct HDL Cholesterol PTH Intact Urine pH Urine WBC (Auto) Urine Creatinine Urine Total Protein Fluid Total Protein Vancomycin Trough Rheumatoid Factor Complement C4 Miscellaneous Test Crossmatch 11/21/16 11/22/16 11/22/16 23:37 04:48 05:00 WBC 29.7 H RBC 2.73 L Hgb 7.5 L Hct 24.2 L MCV MCH 27 L MCHC RDW 17.4 H Plt Count Lymph % (Auto) Pope % (Auto) Lymph # Pope # Baso # Seg Neutrophils % Seg Neuts % (Manual) Lymphocytes % (Manual) 7.0 L Monocytes % (Manual) Eosinophils % (Manual) Basophils % (Manual) Nucleated RBC % Seg Neutrophils # Seg Neutrophils # Man 15.4 H Lymphocytes # (Manual) Monocytes # (Manual) Eosinophils # (Manual) Basophils # (Manual) PT INR Fibrinogen dRVVT Confirm Interp Factor V Activity POC ABG pH POC ABG pCO2 24.6 L POC ABG pO2 189 H ABG pO2 ABG HCO3 ABG Base Excess ABG Hemoglobin Oxyhemoglobin Sodium Potassium Chloride Carbon Dioxide BUN Creatinine Glucose POC Glucose 65 L Lactic Acid Calcium Phosphorus Magnesium Direct Bilirubin AST ALT Alkaline Phosphatase Lactate Dehydrogenase Troponin T C-Reactive Protein Total Protein Albumin Prealbumin Triglycerides Cholesterol LDL Cholesterol Direct HDL Cholesterol PTH Intact Urine pH Urine WBC (Auto) Urine Creatinine Urine Total Protein Fluid Total Protein Vancomycin Trough Rheumatoid Factor Complement C4 Miscellaneous Test Crossmatch 11/22/16 11/23/16 11/23/16 05:00 03:44 04:06 WBC RBC 2.52 L Hgb 7.2 L Hct 21.5 L MCV MCH MCHC RDW 17.1 H Plt Count Lymph % (Auto) Pope % (Auto) 12.4 H Lymph # Pope # 1.4 H Baso # Seg Neutrophils % Seg Neuts % (Manual) Lymphocytes % (Manual) Monocytes % (Manual) Eosinophils % (Manual) Basophils % (Manual) Nucleated RBC % Seg Neutrophils # Seg Neutrophils # Man Lymphocytes # (Manual) Monocytes # (Manual) Eosinophils # (Manual) Basophils # (Manual) PT INR Fibrinogen dRVVT Confirm Interp Factor V Activity POC ABG pH 7.493 H POC ABG pCO2 29.5 L POC ABG pO2 49 L ABG pO2 ABG HCO3 ABG Base Excess ABG Hemoglobin Oxyhemoglobin Sodium 134 L Potassium Chloride 95.9 L Carbon Dioxide 14 L D BUN 51 H Creatinine 2.6 H Glucose POC Glucose Lactic Acid Calcium Phosphorus Magnesium Direct Bilirubin AST ALT Alkaline Phosphatase Lactate Dehydrogenase Troponin T C-Reactive Protein Total Protein Albumin Prealbumin Triglycerides Cholesterol LDL Cholesterol Direct HDL Cholesterol PTH Intact Urine pH Urine WBC (Auto) Urine Creatinine Urine Total Protein Fluid Total Protein Vancomycin Trough Rheumatoid Factor Complement C4 Miscellaneous Test Crossmatch 11/23/16 11/23/16 11/24/16 04:06 11:29 06:39 WBC RBC Hgb Hct MCV MCH MCHC RDW Plt Count Lymph % (Auto) Pope % (Auto) Lymph # Pope # Baso # Seg Neutrophils % Seg Neuts % (Manual) Lymphocytes % (Manual) Monocytes % (Manual) Eosinophils % (Manual) Basophils % (Manual) Nucleated RBC % Seg Neutrophils # Seg Neutrophils # Man Lymphocytes # (Manual) Monocytes # (Manual) Eosinophils # (Manual) Basophils # (Manual) PT INR Fibrinogen dRVVT Confirm Interp Factor V Activity POC ABG pH POC ABG pCO2 POC ABG pO2 ABG pO2 ABG HCO3 ABG Base Excess ABG Hemoglobin Oxyhemoglobin Sodium 136 L Potassium Chloride 95.2 L Carbon Dioxide BUN 60 H Creatinine 2.9 H Glucose POC Glucose 69 L 305 H Lactic Acid Calcium Phosphorus Magnesium 1.60 L Direct Bilirubin AST ALT Alkaline Phosphatase Lactate Dehydrogenase Troponin T C-Reactive Protein Total Protein Albumin Prealbumin Triglycerides Cholesterol LDL Cholesterol Direct HDL Cholesterol PTH Intact Urine pH Urine WBC (Auto) Urine Creatinine Urine Total Protein Fluid Total Protein Vancomycin Trough Rheumatoid Factor Complement C4 Miscellaneous Test Crossmatch 11/24/16 11/24/16 11/24/16 06:43 08:08 08:08 WBC 11.2 H RBC 2.47 L Hgb 6.8 L Hct 20.6 L MCV MCH MCHC RDW 17.0 H Plt Count Lymph % (Auto) Pope % (Auto) 10.3 H Lymph # Pope # 1.2 H Baso # Seg Neutrophils % Seg Neuts % (Manual) Lymphocytes % (Manual) Monocytes % (Manual) Eosinophils % (Manual) Basophils % (Manual) Nucleated RBC % Seg Neutrophils # Seg Neutrophils # Man Lymphocytes # (Manual) Monocytes # (Manual) Eosinophils # (Manual) Basophils # (Manual) PT INR Fibrinogen dRVVT Confirm Interp Factor V Activity POC ABG pH POC ABG pCO2 POC ABG pO2 ABG pO2 ABG HCO3 ABG Base Excess ABG Hemoglobin Oxyhemoglobin Sodium 135 L Potassium Chloride 96.3 L Carbon Dioxide BUN 61 H Creatinine 3.1 H Glucose POC Glucose 62 L Lactic Acid Calcium 8.2 L Phosphorus Magnesium Direct Bilirubin AST ALT Alkaline Phosphatase Lactate Dehydrogenase Troponin T C-Reactive Protein Total Protein Albumin Prealbumin Triglycerides Cholesterol LDL Cholesterol Direct HDL Cholesterol PTH Intact Urine pH Urine WBC (Auto) Urine Creatinine Urine Total Protein Fluid Total Protein Vancomycin Trough Rheumatoid Factor Complement C4 Miscellaneous Test Crossmatch 11/24/16 11/24/16 11/24/16 08:34 11:20 12:41 WBC RBC Hgb Hct MCV MCH MCHC RDW Plt Count Lymph % (Auto) Pope % (Auto) Lymph # Pope # Baso # Seg Neutrophils % Seg Neuts % (Manual) Lymphocytes % (Manual) Monocytes % (Manual) Eosinophils % (Manual) Basophils % (Manual) Nucleated RBC % Seg Neutrophils # Seg Neutrophils # Man Lymphocytes # (Manual) Monocytes # (Manual) Eosinophils # (Manual) Basophils # (Manual) PT INR Fibrinogen dRVVT Confirm Interp Factor V Activity POC ABG pH POC ABG pCO2 POC ABG pO2 ABG pO2 ABG HCO3 ABG Base Excess ABG Hemoglobin Oxyhemoglobin Sodium Potassium Chloride Carbon Dioxide BUN Creatinine Glucose POC Glucose 108 H Lactic Acid Calcium Phosphorus Magnesium 1.60 L Direct Bilirubin AST ALT Alkaline Phosphatase Lactate Dehydrogenase Troponin T C-Reactive Protein Total Protein Albumin Prealbumin Triglycerides Cholesterol LDL Cholesterol Direct HDL Cholesterol PTH Intact Urine pH Urine WBC (Auto) Urine Creatinine Urine Total Protein Fluid Total Protein Vancomycin Trough Rheumatoid Factor Complement C4 Miscellaneous Test Crossmatch See Detail 11/25/16 11/25/16 11/25/16 00:03 04:42 04:42 WBC RBC 3.03 L Hgb 8.6 L Hct 25.3 L MCV MCH MCHC RDW 16.2 H Plt Count Lymph % (Auto) Pope % (Auto) 8.1 H Lymph # Pope # Baso # Seg Neutrophils % 71.3 H Seg Neuts % (Manual) Lymphocytes % (Manual) Monocytes % (Manual) Eosinophils % (Manual) Basophils % (Manual) Nucleated RBC % Seg Neutrophils # Seg Neutrophils # Man Lymphocytes # (Manual) Monocytes # (Manual) Eosinophils # (Manual) Basophils # (Manual) PT INR Fibrinogen dRVVT Confirm Interp Factor V Activity POC ABG pH POC ABG pCO2 POC ABG pO2 ABG pO2 ABG HCO3 ABG Base Excess ABG Hemoglobin Oxyhemoglobin Sodium Potassium Chloride Carbon Dioxide BUN 61 H Creatinine 3.0 H Glucose 102 H POC Glucose 113 H Lactic Acid Calcium 8.2 L Phosphorus Magnesium Direct Bilirubin AST ALT Alkaline Phosphatase 142 H Lactate Dehydrogenase Troponin T C-Reactive Protein Total Protein 5.7 L Albumin 1.5 L Prealbumin Triglycerides Cholesterol LDL Cholesterol Direct HDL Cholesterol PTH Intact Urine pH Urine WBC (Auto) Urine Creatinine Urine Total Protein Fluid Total Protein Vancomycin Trough Rheumatoid Factor Complement C4 Miscellaneous Test Crossmatch 11/25/16 11/25/16 11/25/16 05:12 11:31 14:12 WBC RBC Hgb Hct MCV MCH MCHC RDW Plt Count Lymph % (Auto) Pope % (Auto) Lymph # Pope # Baso # Seg Neutrophils % Seg Neuts % (Manual) Lymphocytes % (Manual) Monocytes % (Manual) Eosinophils % (Manual) Basophils % (Manual) Nucleated RBC % Seg Neutrophils # Seg Neutrophils # Man Lymphocytes # (Manual) Monocytes # (Manual) Eosinophils # (Manual) Basophils # (Manual) PT INR Fibrinogen dRVVT Confirm Interp Factor V Activity POC ABG pH 7.487 H POC ABG pCO2 POC ABG pO2 153 H ABG pO2 ABG HCO3 ABG Base Excess ABG Hemoglobin Oxyhemoglobin Sodium Potassium Chloride Carbon Dioxide BUN Creatinine Glucose POC Glucose 131 H 140 H Lactic Acid Calcium Phosphorus Magnesium Direct Bilirubin AST ALT Alkaline Phosphatase Lactate Dehydrogenase Troponin T C-Reactive Protein Total Protein Albumin Prealbumin Triglycerides Cholesterol LDL Cholesterol Direct HDL Cholesterol PTH Intact Urine pH Urine WBC (Auto) Urine Creatinine Urine Total Protein Fluid Total Protein Vancomycin Trough Rheumatoid Factor Complement C4 Miscellaneous Test Crossmatch 11/25/16 11/26/16 11/26/16 17:23 00:09 05:13 WBC RBC 2.94 L Hgb 8.4 L Hct 24.6 L MCV MCH MCHC RDW 16.4 H Plt Count Lymph % (Auto) Pope % (Auto) 12.3 H Lymph # Pope # 1.1 H Baso # Seg Neutrophils % Seg Neuts % (Manual) Lymphocytes % (Manual) Monocytes % (Manual) Eosinophils % (Manual) Basophils % (Manual) Nucleated RBC % Seg Neutrophils # Seg Neutrophils # Man Lymphocytes # (Manual) Monocytes # (Manual) Eosinophils # (Manual) Basophils # (Manual) PT INR Fibrinogen dRVVT Confirm Interp Factor V Activity POC ABG pH POC ABG pCO2 POC ABG pO2 ABG pO2 ABG HCO3 ABG Base Excess ABG Hemoglobin Oxyhemoglobin Sodium Potassium Chloride Carbon Dioxide BUN Creatinine Glucose POC Glucose 146 H 112 H Lactic Acid Calcium Phosphorus Magnesium Direct Bilirubin AST ALT Alkaline Phosphatase Lactate Dehydrogenase Troponin T C-Reactive Protein Total Protein Albumin Prealbumin Triglycerides Cholesterol LDL Cholesterol Direct HDL Cholesterol PTH Intact Urine pH Urine WBC (Auto) Urine Creatinine Urine Total Protein Fluid Total Protein Vancomycin Trough Rheumatoid Factor Complement C4 Miscellaneous Test Crossmatch 11/26/16 11/26/16 11/26/16 05:13 05:28 11:53 WBC RBC Hgb Hct MCV MCH MCHC RDW Plt Count Lymph % (Auto) Pope % (Auto) Lymph # Pope # Baso # Seg Neutrophils % Seg Neuts % (Manual) Lymphocytes % (Manual) Monocytes % (Manual) Eosinophils % (Manual) Basophils % (Manual) Nucleated RBC % Seg Neutrophils # Seg Neutrophils # Man Lymphocytes # (Manual) Monocytes # (Manual) Eosinophils # (Manual) Basophils # (Manual) PT INR Fibrinogen dRVVT Confirm Interp Factor V Activity POC ABG pH POC ABG pCO2 POC ABG pO2 ABG pO2 ABG HCO3 ABG Base Excess ABG Hemoglobin Oxyhemoglobin Sodium Potassium Chloride 97.8 L Carbon Dioxide BUN 37 H Creatinine 2.0 H Glucose 109 H POC Glucose 117 H 111 H Lactic Acid Calcium 7.9 L Phosphorus 1.80 L D Magnesium Direct Bilirubin AST ALT Alkaline Phosphatase Lactate Dehydrogenase Troponin T C-Reactive Protein Total Protein Albumin Prealbumin Triglycerides Cholesterol LDL Cholesterol Direct HDL Cholesterol PTH Intact Urine pH Urine WBC (Auto) Urine Creatinine Urine Total Protein Fluid Total Protein Vancomycin Trough Rheumatoid Factor Complement C4 Miscellaneous Test Crossmatch 11/26/16 11/27/16 11/27/16 17:14 04:50 06:02 WBC RBC Hgb Hct MCV MCH MCHC RDW Plt Count Lymph % (Auto) Pope % (Auto) Lymph # Pope # Baso # Seg Neutrophils % Seg Neuts % (Manual) Lymphocytes % (Manual) Monocytes % (Manual) Eosinophils % (Manual) Basophils % (Manual) Nucleated RBC % Seg Neutrophils # Seg Neutrophils # Man Lymphocytes # (Manual) Monocytes # (Manual) Eosinophils # (Manual) Basophils # (Manual) PT INR Fibrinogen dRVVT Confirm Interp Factor V Activity POC ABG pH POC ABG pCO2 POC ABG pO2 ABG pO2 75.2 L ABG HCO3 26.4 H ABG Base Excess ABG Hemoglobin 7.6 L Oxyhemoglobin 94.8 L Sodium Potassium Chloride Carbon Dioxide BUN 49 H Creatinine 2.3 H Glucose POC Glucose 115 H Lactic Acid Calcium Phosphorus 1.50 L Magnesium Direct Bilirubin AST ALT Alkaline Phosphatase Lactate Dehydrogenase Troponin T C-Reactive Protein Total Protein Albumin Prealbumin Triglycerides Cholesterol LDL Cholesterol Direct HDL Cholesterol PTH Intact Urine pH Urine WBC (Auto) Urine Creatinine Urine Total Protein Fluid Total Protein Vancomycin Trough Rheumatoid Factor Complement C4 Miscellaneous Test Crossmatch 11/27/16 11/27/16 11/27/16 06:02 11:25 17:25 WBC 11.6 H RBC 2.75 L Hgb 7.6 L Hct 23.4 L MCV MCH MCHC RDW 16.5 H Plt Count Lymph % (Auto) Pope % (Auto) Lymph # Pope # Baso # Seg Neutrophils % Seg Neuts % (Manual) Lymphocytes % (Manual) Monocytes % (Manual) Eosinophils % (Manual) Basophils % (Manual) Nucleated RBC % Seg Neutrophils # Seg Neutrophils # Man Lymphocytes # (Manual) Monocytes # (Manual) Eosinophils # (Manual) Basophils # (Manual) PT INR Fibrinogen dRVVT Confirm Interp Factor V Activity POC ABG pH POC ABG pCO2 POC ABG pO2 ABG pO2 ABG HCO3 ABG Base Excess ABG Hemoglobin Oxyhemoglobin Sodium Potassium Chloride Carbon Dioxide BUN Creatinine Glucose POC Glucose 114 H 126 H Lactic Acid Calcium Phosphorus Magnesium Direct Bilirubin AST ALT Alkaline Phosphatase Lactate Dehydrogenase Troponin T C-Reactive Protein Total Protein Albumin Prealbumin Triglycerides Cholesterol LDL Cholesterol Direct HDL Cholesterol PTH Intact Urine pH Urine WBC (Auto) Urine Creatinine Urine Total Protein Fluid Total Protein Vancomycin Trough Rheumatoid Factor Complement C4 Miscellaneous Test Crossmatch 11/28/16 11/28/16 11/28/16 04:45 05:33 05:44 WBC RBC Hgb Hct MCV MCH MCHC RDW Plt Count Lymph % (Auto) Pope % (Auto) Lymph # Pope # Baso # Seg Neutrophils % Seg Neuts % (Manual) Lymphocytes % (Manual) Monocytes % (Manual) Eosinophils % (Manual) Basophils % (Manual) Nucleated RBC % Seg Neutrophils # Seg Neutrophils # Man Lymphocytes # (Manual) Monocytes # (Manual) Eosinophils # (Manual) Basophils # (Manual) PT INR Fibrinogen dRVVT Confirm Interp Factor V Activity POC ABG pH POC ABG pCO2 POC ABG pO2 ABG pO2 99.3 H ABG HCO3 ABG Base Excess ABG Hemoglobin 8.3 L Oxyhemoglobin Sodium Potassium Chloride Carbon Dioxide BUN 63 H Creatinine 2.4 H Glucose 102 H POC Glucose 108 H Lactic Acid Calcium Phosphorus 1.80 L Magnesium Direct Bilirubin AST ALT Alkaline Phosphatase Lactate Dehydrogenase Troponin T C-Reactive Protein Total Protein Albumin Prealbumin Triglycerides Cholesterol LDL Cholesterol Direct HDL Cholesterol PTH Intact Urine pH Urine WBC (Auto) Urine Creatinine Urine Total Protein Fluid Total Protein Vancomycin Trough Rheumatoid Factor Complement C4 Miscellaneous Test Crossmatch 11/28/16 11/28/16 11/28/16 12:31 16:09 23:46 WBC RBC Hgb Hct MCV MCH MCHC RDW Plt Count Lymph % (Auto) Pope % (Auto) Lymph # Pope # Baso # Seg Neutrophils % Seg Neuts % (Manual) Lymphocytes % (Manual) Monocytes % (Manual) Eosinophils % (Manual) Basophils % (Manual) Nucleated RBC % Seg Neutrophils # Seg Neutrophils # Man Lymphocytes # (Manual) Monocytes # (Manual) Eosinophils # (Manual) Basophils # (Manual) PT INR Fibrinogen dRVVT Confirm Interp Factor V Activity POC ABG pH POC ABG pCO2 POC ABG pO2 ABG pO2 ABG HCO3 ABG Base Excess ABG Hemoglobin Oxyhemoglobin Sodium Potassium Chloride Carbon Dioxide BUN Creatinine Glucose POC Glucose 126 H 111 H 119 H Lactic Acid Calcium Phosphorus Magnesium Direct Bilirubin AST ALT Alkaline Phosphatase Lactate Dehydrogenase Troponin T C-Reactive Protein Total Protein Albumin Prealbumin Triglycerides Cholesterol LDL Cholesterol Direct HDL Cholesterol PTH Intact Urine pH Urine WBC (Auto) Urine Creatinine Urine Total Protein Fluid Total Protein Vancomycin Trough Rheumatoid Factor Complement C4 Miscellaneous Test Crossmatch 11/29/16 11/29/16 11/29/16 03:33 04:52 05:10 WBC RBC Hgb Hct MCV MCH MCHC RDW Plt Count Lymph % (Auto) Pope % (Auto) Lymph # Pope # Baso # Seg Neutrophils % Seg Neuts % (Manual) Lymphocytes % (Manual) Monocytes % (Manual) Eosinophils % (Manual) Basophils % (Manual) Nucleated RBC % Seg Neutrophils # Seg Neutrophils # Man Lymphocytes # (Manual) Monocytes # (Manual) Eosinophils # (Manual) Basophils # (Manual) PT INR Fibrinogen dRVVT Confirm Interp Factor V Activity POC ABG pH POC ABG pCO2 POC ABG pO2 ABG pO2 ABG HCO3 ABG Base Excess ABG Hemoglobin 7.0 L Oxyhemoglobin 94.9 L Sodium Potassium Chloride Carbon Dioxide BUN 73 H Creatinine 2.7 H Glucose POC Glucose 108 H Lactic Acid Calcium Phosphorus Magnesium Direct Bilirubin AST ALT Alkaline Phosphatase Lactate Dehydrogenase Troponin T C-Reactive Protein Total Protein Albumin Prealbumin Triglycerides Cholesterol LDL Cholesterol Direct HDL Cholesterol PTH Intact Urine pH Urine WBC (Auto) Urine Creatinine Urine Total Protein Fluid Total Protein Vancomycin Trough Rheumatoid Factor Complement C4 Miscellaneous Test Crossmatch 11/29/16 11/29/16 11/29/16 12:16 18:05 23:46 WBC RBC Hgb Hct MCV MCH MCHC RDW Plt Count Lymph % (Auto) Pope % (Auto) Lymph # Pope # Baso # Seg Neutrophils % Seg Neuts % (Manual) Lymphocytes % (Manual) Monocytes % (Manual) Eosinophils % (Manual) Basophils % (Manual) Nucleated RBC % Seg Neutrophils # Seg Neutrophils # Man Lymphocytes # (Manual) Monocytes # (Manual) Eosinophils # (Manual) Basophils # (Manual) PT INR Fibrinogen dRVVT Confirm Interp Factor V Activity POC ABG pH POC ABG pCO2 POC ABG pO2 ABG pO2 ABG HCO3 ABG Base Excess ABG Hemoglobin Oxyhemoglobin Sodium Potassium Chloride Carbon Dioxide BUN Creatinine Glucose POC Glucose 133 H 146 H 141 H Lactic Acid Calcium Phosphorus Magnesium Direct Bilirubin AST ALT Alkaline Phosphatase Lactate Dehydrogenase Troponin T C-Reactive Protein Total Protein Albumin Prealbumin Triglycerides Cholesterol LDL Cholesterol Direct HDL Cholesterol PTH Intact Urine pH Urine WBC (Auto) Urine Creatinine Urine Total Protein Fluid Total Protein Vancomycin Trough Rheumatoid Factor Complement C4 Miscellaneous Test Crossmatch 11/30/16 11/30/16 11/30/16 04:17 04:17 04:32 WBC 12.0 H RBC 2.80 L Hgb 7.8 L Hct 23.6 L MCV MCH MCHC RDW 16.6 H Plt Count Lymph % (Auto) Pope % (Auto) 11.3 H Lymph # Pope # 1.4 H Baso # Seg Neutrophils % Seg Neuts % (Manual) Lymphocytes % (Manual) Monocytes % (Manual) Eosinophils % (Manual) Basophils % (Manual) Nucleated RBC % Seg Neutrophils # 8.2 H Seg Neutrophils # Man Lymphocytes # (Manual) Monocytes # (Manual) Eosinophils # (Manual) Basophils # (Manual) PT INR Fibrinogen dRVVT Confirm Interp Factor V Activity POC ABG pH POC ABG pCO2 POC ABG pO2 ABG pO2 ABG HCO3 ABG Base Excess ABG Hemoglobin Oxyhemoglobin Sodium 169 H* D Potassium 5.1 H Chloride 121.5 H Carbon Dioxide BUN 34 H Creatinine 1.3 H D Glucose 133 H POC Glucose 131 H Lactic Acid Calcium 10.3 H Phosphorus Magnesium Direct Bilirubin AST ALT Alkaline Phosphatase Lactate Dehydrogenase Troponin T C-Reactive Protein Total Protein Albumin Prealbumin Triglycerides Cholesterol LDL Cholesterol Direct HDL Cholesterol PTH Intact Urine pH Urine WBC (Auto) Urine Creatinine Urine Total Protein Fluid Total Protein Vancomycin Trough Rheumatoid Factor Complement C4 Miscellaneous Test Crossmatch 11/30/16 11/30/16 11/30/16 05:45 11:10 17:26 WBC RBC Hgb Hct MCV MCH MCHC RDW Plt Count Lymph % (Auto) Pope % (Auto) Lymph # Pope # Baso # Seg Neutrophils % Seg Neuts % (Manual) Lymphocytes % (Manual) Monocytes % (Manual) Eosinophils % (Manual) Basophils % (Manual) Nucleated RBC % Seg Neutrophils # Seg Neutrophils # Man Lymphocytes # (Manual) Monocytes # (Manual) Eosinophils # (Manual) Basophils # (Manual) PT INR Fibrinogen dRVVT Confirm Interp Factor V Activity POC ABG pH POC ABG pCO2 POC ABG pO2 ABG pO2 ABG HCO3 ABG Base Excess ABG Hemoglobin Oxyhemoglobin Sodium Potassium Chloride Carbon Dioxide BUN 45 H Creatinine 1.6 H Glucose 131 H POC Glucose 146 H 134 H Lactic Acid Calcium Phosphorus Magnesium Direct Bilirubin AST ALT Alkaline Phosphatase Lactate Dehydrogenase Troponin T C-Reactive Protein Total Protein Albumin Prealbumin Triglycerides Cholesterol LDL Cholesterol Direct HDL Cholesterol PTH Intact Urine pH Urine WBC (Auto) Urine Creatinine Urine Total Protein Fluid Total Protein Vancomycin Trough Rheumatoid Factor Complement C4 Miscellaneous Test Crossmatch 11/30/16 12/01/16 12/01/16 23:35 00:06 03:35 WBC RBC Hgb Hct MCV MCH MCHC RDW Plt Count Lymph % (Auto) Pope % (Auto) Lymph # Pope # Baso # Seg Neutrophils % Seg Neuts % (Manual) Lymphocytes % (Manual) Monocytes % (Manual) Eosinophils % (Manual) Basophils % (Manual) Nucleated RBC % Seg Neutrophils # Seg Neutrophils # Man Lymphocytes # (Manual) Monocytes # (Manual) Eosinophils # (Manual) Basophils # (Manual) PT INR Fibrinogen dRVVT Confirm Interp Factor V Activity POC ABG pH POC ABG pCO2 POC ABG pO2 ABG pO2 ABG HCO3 ABG Base Excess ABG Hemoglobin 6.9 L Oxyhemoglobin Sodium Potassium Chloride Carbon Dioxide BUN 58 H Creatinine 1.8 H Glucose 146 H POC Glucose 151 H Lactic Acid Calcium Phosphorus Magnesium Direct Bilirubin AST ALT Alkaline Phosphatase Lactate Dehydrogenase Troponin T C-Reactive Protein Total Protein Albumin Prealbumin Triglycerides Cholesterol LDL Cholesterol Direct HDL Cholesterol PTH Intact Urine pH Urine WBC (Auto) Urine Creatinine Urine Total Protein Fluid Total Protein Vancomycin Trough Rheumatoid Factor Complement C4 Miscellaneous Test Crossmatch 12/01/16 12/01/16 12/01/16 03:35 05:47 11:52 WBC 12.3 H RBC 2.82 L Hgb 7.8 L Hct 23.7 L MCV MCH MCHC RDW 16.7 H Plt Count Lymph % (Auto) Pope % (Auto) 9.8 H Lymph # Pope # 1.2 H Baso # Seg Neutrophils % Seg Neuts % (Manual) Lymphocytes % (Manual) Monocytes % (Manual) Eosinophils % (Manual) Basophils % (Manual) Nucleated RBC % Seg Neutrophils # 8.4 H Seg Neutrophils # Man Lymphocytes # (Manual) Monocytes # (Manual) Eosinophils # (Manual) Basophils # (Manual) PT INR Fibrinogen dRVVT Confirm Interp Factor V Activity POC ABG pH POC ABG pCO2 POC ABG pO2 ABG pO2 ABG HCO3 ABG Base Excess ABG Hemoglobin Oxyhemoglobin Sodium Potassium Chloride Carbon Dioxide BUN Creatinine Glucose POC Glucose 152 H 152 H Lactic Acid Calcium Phosphorus Magnesium Direct Bilirubin AST ALT Alkaline Phosphatase Lactate Dehydrogenase Troponin T C-Reactive Protein Total Protein Albumin Prealbumin Triglycerides Cholesterol LDL Cholesterol Direct HDL Cholesterol PTH Intact Urine pH Urine WBC (Auto) Urine Creatinine Urine Total Protein Fluid Total Protein Vancomycin Trough Rheumatoid Factor Complement C4 Miscellaneous Test Crossmatch 12/01/16 12/01/16 12/02/16 17:40 23:41 05:00 WBC RBC Hgb Hct MCV MCH MCHC RDW Plt Count Lymph % (Auto) Pope % (Auto) Lymph # Pope # Baso # Seg Neutrophils % Seg Neuts % (Manual) Lymphocytes % (Manual) Monocytes % (Manual) Eosinophils % (Manual) Basophils % (Manual) Nucleated RBC % Seg Neutrophils # Seg Neutrophils # Man Lymphocytes # (Manual) Monocytes # (Manual) Eosinophils # (Manual) Basophils # (Manual) PT INR Fibrinogen dRVVT Confirm Interp Factor V Activity POC ABG pH POC ABG pCO2 POC ABG pO2 ABG pO2 ABG HCO3 ABG Base Excess ABG Hemoglobin Oxyhemoglobin Sodium Potassium Chloride Carbon Dioxide BUN 45 H Creatinine Glucose 115 H POC Glucose 140 H 144 H Lactic Acid Calcium Phosphorus Magnesium Direct Bilirubin AST ALT Alkaline Phosphatase Lactate Dehydrogenase Troponin T C-Reactive Protein Total Protein Albumin Prealbumin Triglycerides Cholesterol LDL Cholesterol Direct HDL Cholesterol PTH Intact Urine pH Urine WBC (Auto) Urine Creatinine Urine Total Protein Fluid Total Protein Vancomycin Trough Rheumatoid Factor Complement C4 Miscellaneous Test Crossmatch 12/02/16 12/02/16 12/02/16 05:31 11:20 17:38 WBC RBC Hgb Hct MCV MCH MCHC RDW Plt Count Lymph % (Auto) Pope % (Auto) Lymph # Pope # Baso # Seg Neutrophils % Seg Neuts % (Manual) Lymphocytes % (Manual) Monocytes % (Manual) Eosinophils % (Manual) Basophils % (Manual) Nucleated RBC % Seg Neutrophils # Seg Neutrophils # Man Lymphocytes # (Manual) Monocytes # (Manual) Eosinophils # (Manual) Basophils # (Manual) PT INR Fibrinogen dRVVT Confirm Interp Factor V Activity POC ABG pH POC ABG pCO2 POC ABG pO2 ABG pO2 ABG HCO3 ABG Base Excess ABG Hemoglobin Oxyhemoglobin Sodium Potassium Chloride Carbon Dioxide BUN Creatinine Glucose POC Glucose 136 H 177 H 139 H Lactic Acid Calcium Phosphorus Magnesium Direct Bilirubin AST ALT Alkaline Phosphatase Lactate Dehydrogenase Troponin T C-Reactive Protein Total Protein Albumin Prealbumin Triglycerides Cholesterol LDL Cholesterol Direct HDL Cholesterol PTH Intact Urine pH Urine WBC (Auto) Urine Creatinine Urine Total Protein Fluid Total Protein Vancomycin Trough Rheumatoid Factor Complement C4 Miscellaneous Test Crossmatch 12/02/16 12/03/16 12/03/16 23:43 04:00 04:00 WBC 20.4 H RBC 2.74 L Hgb 7.4 L Hct 23.6 L MCV MCH 27 L MCHC RDW 17.1 H Plt Count Lymph % (Auto) Pope % (Auto) Lymph # Pope # Baso # Seg Neutrophils % Seg Neuts % (Manual) 31.0 L Lymphocytes % (Manual) Monocytes % (Manual) Eosinophils % (Manual) Basophils % (Manual) Nucleated RBC % Seg Neutrophils # Seg Neutrophils # Man Lymphocytes # (Manual) Monocytes # (Manual) Eosinophils # (Manual) Basophils # (Manual) PT INR Fibrinogen dRVVT Confirm Interp Factor V Activity POC ABG pH POC ABG pCO2 POC ABG pO2 ABG pO2 ABG HCO3 ABG Base Excess ABG Hemoglobin Oxyhemoglobin Sodium Potassium Chloride Carbon Dioxide BUN 61 H Creatinine 1.6 H Glucose 119 H POC Glucose 158 H Lactic Acid Calcium Phosphorus Magnesium Direct Bilirubin AST ALT Alkaline Phosphatase Lactate Dehydrogenase Troponin T C-Reactive Protein Total Protein Albumin Prealbumin Triglycerides Cholesterol LDL Cholesterol Direct HDL Cholesterol PTH Intact Urine pH Urine WBC (Auto) Urine Creatinine Urine Total Protein Fluid Total Protein Vancomycin Trough Rheumatoid Factor Complement C4 Miscellaneous Test Crossmatch 12/03/16 12/03/16 12/03/16 05:02 12:11 18:16 WBC RBC Hgb Hct MCV MCH MCHC RDW Plt Count Lymph % (Auto) Pope % (Auto) Lymph # Pope # Baso # Seg Neutrophils % Seg Neuts % (Manual) Lymphocytes % (Manual) Monocytes % (Manual) Eosinophils % (Manual) Basophils % (Manual) Nucleated RBC % Seg Neutrophils # Seg Neutrophils # Man Lymphocytes # (Manual) Monocytes # (Manual) Eosinophils # (Manual) Basophils # (Manual) PT INR Fibrinogen dRVVT Confirm Interp Factor V Activity POC ABG pH POC ABG pCO2 POC ABG pO2 ABG pO2 ABG HCO3 ABG Base Excess ABG Hemoglobin Oxyhemoglobin Sodium Potassium Chloride Carbon Dioxide BUN Creatinine Glucose POC Glucose 146 H 157 H 124 H Lactic Acid Calcium Phosphorus Magnesium Direct Bilirubin AST ALT Alkaline Phosphatase Lactate Dehydrogenase Troponin T C-Reactive Protein Total Protein Albumin Prealbumin Triglycerides Cholesterol LDL Cholesterol Direct HDL Cholesterol PTH Intact Urine pH Urine WBC (Auto) Urine Creatinine Urine Total Protein Fluid Total Protein Vancomycin Trough Rheumatoid Factor Complement C4 Miscellaneous Test Crossmatch 12/03/16 12/04/16 12/04/16 23:41 04:00 04:45 WBC RBC Hgb Hct MCV MCH MCHC RDW Plt Count Lymph % (Auto) Pope % (Auto) Lymph # Pope # Baso # Seg Neutrophils % Seg Neuts % (Manual) Lymphocytes % (Manual) Monocytes % (Manual) Eosinophils % (Manual) Basophils % (Manual) Nucleated RBC % Seg Neutrophils # Seg Neutrophils # Man Lymphocytes # (Manual) Monocytes # (Manual) Eosinophils # (Manual) Basophils # (Manual) PT INR Fibrinogen dRVVT Confirm Interp Factor V Activity POC ABG pH POC ABG pCO2 POC ABG pO2 ABG pO2 ABG HCO3 ABG Base Excess ABG Hemoglobin Oxyhemoglobin Sodium Potassium Chloride Carbon Dioxide BUN 76 H Creatinine 1.6 H Glucose POC Glucose 130 H 136 H Lactic Acid Calcium Phosphorus Magnesium Direct Bilirubin AST ALT Alkaline Phosphatase 155 H Lactate Dehydrogenase Troponin T C-Reactive Protein Total Protein 5.5 L Albumin 1.5 L Prealbumin Triglycerides Cholesterol LDL Cholesterol Direct HDL Cholesterol PTH Intact Urine pH Urine WBC (Auto) Urine Creatinine Urine Total Protein Fluid Total Protein Vancomycin Trough Rheumatoid Factor Complement C4 Miscellaneous Test Crossmatch 12/04/16 12/04/16 12/05/16 12:08 17:23 00:10 WBC RBC Hgb Hct MCV MCH MCHC RDW Plt Count Lymph % (Auto) Pope % (Auto) Lymph # Pope # Baso # Seg Neutrophils % Seg Neuts % (Manual) Lymphocytes % (Manual) Monocytes % (Manual) Eosinophils % (Manual) Basophils % (Manual) Nucleated RBC % Seg Neutrophils # Seg Neutrophils # Man Lymphocytes # (Manual) Monocytes # (Manual) Eosinophils # (Manual) Basophils # (Manual) PT INR Fibrinogen dRVVT Confirm Interp Factor V Activity POC ABG pH POC ABG pCO2 POC ABG pO2 ABG pO2 ABG HCO3 ABG Base Excess ABG Hemoglobin Oxyhemoglobin Sodium Potassium Chloride Carbon Dioxide BUN Creatinine Glucose POC Glucose 114 H 129 H 124 H Lactic Acid Calcium Phosphorus Magnesium Direct Bilirubin AST ALT Alkaline Phosphatase Lactate Dehydrogenase Troponin T C-Reactive Protein Total Protein Albumin Prealbumin Triglycerides Cholesterol LDL Cholesterol Direct HDL Cholesterol PTH Intact Urine pH Urine WBC (Auto) Urine Creatinine Urine Total Protein Fluid Total Protein Vancomycin Trough Rheumatoid Factor Complement C4 Miscellaneous Test Crossmatch 12/05/16 12/05/16 12/05/16 05:00 05:00 05:18 WBC RBC Hgb Hct MCV MCH MCHC RDW Plt Count Lymph % (Auto) Pope % (Auto) Lymph # Pope # Baso # Seg Neutrophils % Seg Neuts % (Manual) Lymphocytes % (Manual) Monocytes % (Manual) Eosinophils % (Manual) Basophils % (Manual) Nucleated RBC % Seg Neutrophils # Seg Neutrophils # Man Lymphocytes # (Manual) Monocytes # (Manual) Eosinophils # (Manual) Basophils # (Manual) PT INR Fibrinogen dRVVT Confirm Interp Factor V Activity POC ABG pH POC ABG pCO2 POC ABG pO2 ABG pO2 ABG HCO3 ABG Base Excess ABG Hemoglobin Oxyhemoglobin Sodium Potassium Chloride Carbon Dioxide 21 L BUN 85 H Creatinine 1.9 H Glucose 131 H POC Glucose 154 H Lactic Acid Calcium Phosphorus Magnesium Direct Bilirubin AST ALT Alkaline Phosphatase Lactate Dehydrogenase Troponin T C-Reactive Protein 19.30 H Total Protein Albumin Prealbumin Triglycerides Cholesterol LDL Cholesterol Direct HDL Cholesterol PTH Intact Urine pH Urine WBC (Auto) Urine Creatinine Urine Total Protein Fluid Total Protein Vancomycin Trough Rheumatoid Factor Complement C4 Miscellaneous Test Crossmatch 12/05/16 12/05/16 12/05/16 11:43 17:46 23:25 WBC RBC Hgb Hct MCV MCH MCHC RDW Plt Count Lymph % (Auto) Pope % (Auto) Lymph # Pope # Baso # Seg Neutrophils % Seg Neuts % (Manual) Lymphocytes % (Manual) Monocytes % (Manual) Eosinophils % (Manual) Basophils % (Manual) Nucleated RBC % Seg Neutrophils # Seg Neutrophils # Man Lymphocytes # (Manual) Monocytes # (Manual) Eosinophils # (Manual) Basophils # (Manual) PT INR Fibrinogen dRVVT Confirm Interp Factor V Activity POC ABG pH POC ABG pCO2 POC ABG pO2 ABG pO2 ABG HCO3 ABG Base Excess ABG Hemoglobin Oxyhemoglobin Sodium Potassium Chloride Carbon Dioxide BUN Creatinine Glucose POC Glucose 117 H 113 H 111 H Lactic Acid Calcium Phosphorus Magnesium Direct Bilirubin AST ALT Alkaline Phosphatase Lactate Dehydrogenase Troponin T C-Reactive Protein Total Protein Albumin Prealbumin Triglycerides Cholesterol LDL Cholesterol Direct HDL Cholesterol PTH Intact Urine pH Urine WBC (Auto) Urine Creatinine Urine Total Protein Fluid Total Protein Vancomycin Trough Rheumatoid Factor Complement C4 Miscellaneous Test Crossmatch 12/05/16 12/06/16 12/06/16 Unknown 04:58 06:00 WBC RBC Hgb Hct MCV MCH MCHC RDW Plt Count Lymph % (Auto) Pope % (Auto) Lymph # Pope # Baso # Seg Neutrophils % Seg Neuts % (Manual) Lymphocytes % (Manual) Monocytes % (Manual) Eosinophils % (Manual) Basophils % (Manual) Nucleated RBC % Seg Neutrophils # Seg Neutrophils # Man Lymphocytes # (Manual) Monocytes # (Manual) Eosinophils # (Manual) Basophils # (Manual) PT INR Fibrinogen dRVVT Confirm Interp Factor V Activity POC ABG pH POC ABG pCO2 POC ABG pO2 ABG pO2 75.2 L ABG HCO3 ABG Base Excess -3.4 L ABG Hemoglobin 7.4 L Oxyhemoglobin 94.5 L Sodium Potassium Chloride Carbon Dioxide 20 L BUN 99 H Creatinine 2.1 H Glucose 126 H POC Glucose 145 H Lactic Acid Calcium Phosphorus 4.80 H Magnesium Direct Bilirubin AST ALT Alkaline Phosphatase Lactate Dehydrogenase Troponin T C-Reactive Protein Total Protein Albumin Prealbumin Triglycerides Cholesterol LDL Cholesterol Direct HDL Cholesterol PTH Intact Urine pH Urine WBC (Auto) Urine Creatinine Urine Total Protein Fluid Total Protein Vancomycin Trough Rheumatoid Factor Complement C4 Miscellaneous Test Crossmatch 12/06/16 12/06/16 12/06/16 06:46 11:54 17:55 WBC RBC Hgb 8.3 L Hct 26.4 L MCV MCH MCHC RDW Plt Count Lymph % (Auto) Pope % (Auto) Lymph # Pope # Baso # Seg Neutrophils % Seg Neuts % (Manual) Lymphocytes % (Manual) Monocytes % (Manual) Eosinophils % (Manual) Basophils % (Manual) Nucleated RBC % Seg Neutrophils # Seg Neutrophils # Man Lymphocytes # (Manual) Monocytes # (Manual) Eosinophils # (Manual) Basophils # (Manual) PT INR Fibrinogen dRVVT Confirm Interp Factor V Activity POC ABG pH POC ABG pCO2 POC ABG pO2 ABG pO2 ABG HCO3 ABG Base Excess ABG Hemoglobin Oxyhemoglobin Sodium Potassium Chloride Carbon Dioxide BUN Creatinine Glucose POC Glucose 126 H 157 H Lactic Acid Calcium Phosphorus Magnesium Direct Bilirubin AST ALT Alkaline Phosphatase Lactate Dehydrogenase Troponin T C-Reactive Protein Total Protein Albumin Prealbumin Triglycerides Cholesterol LDL Cholesterol Direct HDL Cholesterol PTH Intact Urine pH Urine WBC (Auto) Urine Creatinine Urine Total Protein Fluid Total Protein Vancomycin Trough Rheumatoid Factor Complement C4 Miscellaneous Test Crossmatch 12/06/16 12/07/16 12/07/16 23:59 05:34 06:30 WBC RBC Hgb Hct MCV MCH MCHC RDW Plt Count Lymph % (Auto) Pope % (Auto) Lymph # Pope # Baso # Seg Neutrophils % Seg Neuts % (Manual) Lymphocytes % (Manual) Monocytes % (Manual) Eosinophils % (Manual) Basophils % (Manual) Nucleated RBC % Seg Neutrophils # Seg Neutrophils # Man Lymphocytes # (Manual) Monocytes # (Manual) Eosinophils # (Manual) Basophils # (Manual) PT INR Fibrinogen dRVVT Confirm Interp Factor V Activity POC ABG pH POC ABG pCO2 POC ABG pO2 ABG pO2 ABG HCO3 ABG Base Excess ABG Hemoglobin Oxyhemoglobin Sodium Potassium Chloride Carbon Dioxide BUN 67 H Creatinine 1.4 H Glucose 126 H POC Glucose 129 H 129 H Lactic Acid Calcium Phosphorus Magnesium Direct Bilirubin AST ALT Alkaline Phosphatase Lactate Dehydrogenase Troponin T C-Reactive Protein Total Protein Albumin Prealbumin Triglycerides Cholesterol LDL Cholesterol Direct HDL Cholesterol PTH Intact Urine pH Urine WBC (Auto) Urine Creatinine Urine Total Protein Fluid Total Protein Vancomycin Trough Rheumatoid Factor Complement C4 Miscellaneous Test Crossmatch 1012/07/16 12/07/16 06:30 08:00 09:45 WBC 18.8 H RBC 2.52 L Hgb 6.9 L 6.8 L Hct 21.2 L 21.1 L MCV MCH 27 L MCHC RDW 18.0 H Plt Count Lymph % (Auto) Pope % (Auto) 9.9 H Lymph # Pope # 1.9 H Baso # Seg Neutrophils % 71.8 H Seg Neuts % (Manual) Lymphocytes % (Manual) Monocytes % (Manual) Eosinophils % (Manual) Basophils % (Manual) Nucleated RBC % Seg Neutrophils # 13.5 H Seg Neutrophils # Man Lymphocytes # (Manual) Monocytes # (Manual) Eosinophils # (Manual) Basophils # (Manual) PT INR Fibrinogen dRVVT Confirm Interp Factor V Activity POC ABG pH POC ABG pCO2 POC ABG pO2 ABG pO2 ABG HCO3 ABG Base Excess ABG Hemoglobin Oxyhemoglobin Sodium Potassium Chloride Carbon Dioxide BUN Creatinine Glucose POC Glucose Lactic Acid Calcium Phosphorus Magnesium Direct Bilirubin AST ALT Alkaline Phosphatase Lactate Dehydrogenase Troponin T C-Reactive Protein Total Protein Albumin Prealbumin Triglycerides Cholesterol LDL Cholesterol Direct HDL Cholesterol PTH Intact Urine pH Urine WBC (Auto) Urine Creatinine Urine Total Protein Fluid Total Protein Vancomycin Trough Rheumatoid Factor Complement C4 Miscellaneous Test Crossmatch See Detail 12/07/16 12/07/16 12/07/16 11:44 18:19 23:59 WBC RBC Hgb Hct MCV MCH MCHC RDW Plt Count Lymph % (Auto) Pope % (Auto) Lymph # Pope # Baso # Seg Neutrophils % Seg Neuts % (Manual) Lymphocytes % (Manual) Monocytes % (Manual) Eosinophils % (Manual) Basophils % (Manual) Nucleated RBC % Seg Neutrophils # Seg Neutrophils # Man Lymphocytes # (Manual) Monocytes # (Manual) Eosinophils # (Manual) Basophils # (Manual) PT INR Fibrinogen dRVVT Confirm Interp Factor V Activity POC ABG pH POC ABG pCO2 POC ABG pO2 ABG pO2 ABG HCO3 ABG Base Excess ABG Hemoglobin Oxyhemoglobin Sodium Potassium Chloride Carbon Dioxide BUN Creatinine Glucose POC Glucose 137 H 138 H 133 H Lactic Acid Calcium Phosphorus Magnesium Direct Bilirubin AST ALT Alkaline Phosphatase Lactate Dehydrogenase Troponin T C-Reactive Protein Total Protein Albumin Prealbumin Triglycerides Cholesterol LDL Cholesterol Direct HDL Cholesterol PTH Intact Urine pH Urine WBC (Auto) Urine Creatinine Urine Total Protein Fluid Total Protein Vancomycin Trough Rheumatoid Factor Complement C4 Miscellaneous Test Crossmatch 12/08/16 12/08/16 12/08/16 05:25 05:30 05:30 WBC 23.8 H RBC 2.88 L Hgb 8.1 L Hct 24.3 L MCV MCH MCHC RDW 16.7 H Plt Count Lymph % (Auto) Pope % (Auto) Lymph # Pope # Baso # Seg Neutrophils % Seg Neuts % (Manual) 76.0 H Lymphocytes % (Manual) 9.0 L Monocytes % (Manual) 9.0 H Eosinophils % (Manual) Basophils % (Manual) Nucleated RBC % Seg Neutrophils # Seg Neutrophils # Man 18.1 H Lymphocytes # (Manual) Monocytes # (Manual) 2.1 H Eosinophils # (Manual) Basophils # (Manual) PT INR Fibrinogen dRVVT Confirm Interp Factor V Activity POC ABG pH POC ABG pCO2 POC ABG pO2 ABG pO2 ABG HCO3 ABG Base Excess ABG Hemoglobin Oxyhemoglobin Sodium Potassium Chloride Carbon Dioxide 21 L BUN 76 H Creatinine 1.6 H Glucose 133 H POC Glucose 177 H Lactic Acid Calcium Phosphorus Magnesium Direct Bilirubin AST ALT Alkaline Phosphatase Lactate Dehydrogenase Troponin T C-Reactive Protein Total Protein Albumin Prealbumin Triglycerides Cholesterol LDL Cholesterol Direct HDL Cholesterol PTH Intact Urine pH Urine WBC (Auto) Urine Creatinine Urine Total Protein Fluid Total Protein Vancomycin Trough Rheumatoid Factor Complement C4 Miscellaneous Test Crossmatch 12/08/16 12/08/16 12/09/16 11:45 18:00 00:00 WBC RBC Hgb Hct MCV MCH MCHC RDW Plt Count Lymph % (Auto) Pope % (Auto) Lymph # Pope # Baso # Seg Neutrophils % Seg Neuts % (Manual) Lymphocytes % (Manual) Monocytes % (Manual) Eosinophils % (Manual) Basophils % (Manual) Nucleated RBC % Seg Neutrophils # Seg Neutrophils # Man Lymphocytes # (Manual) Monocytes # (Manual) Eosinophils # (Manual) Basophils # (Manual) PT INR Fibrinogen dRVVT Confirm Interp Factor V Activity POC ABG pH POC ABG pCO2 POC ABG pO2 ABG pO2 ABG HCO3 ABG Base Excess ABG Hemoglobin Oxyhemoglobin Sodium Potassium Chloride Carbon Dioxide BUN Creatinine Glucose POC Glucose 163 H 123 H 137 H Lactic Acid Calcium Phosphorus Magnesium Direct Bilirubin AST ALT Alkaline Phosphatase Lactate Dehydrogenase Troponin T C-Reactive Protein Total Protein Albumin Prealbumin Triglycerides Cholesterol LDL Cholesterol Direct HDL Cholesterol PTH Intact Urine pH Urine WBC (Auto) Urine Creatinine Urine Total Protein Fluid Total Protein Vancomycin Trough Rheumatoid Factor Complement C4 Miscellaneous Test Crossmatch 12/09/16 12/09/16 12/09/16 05:34 06:00 06:00 WBC 15.5 H RBC 2.87 L Hgb 8.0 L Hct 24.2 L MCV MCH MCHC RDW 17.2 H Plt Count Lymph % (Auto) Pope % (Auto) 11.6 H Lymph # Pope # 1.8 H Baso # Seg Neutrophils % 70.8 H Seg Neuts % (Manual) Lymphocytes % (Manual) Monocytes % (Manual) Eosinophils % (Manual) Basophils % (Manual) Nucleated RBC % Seg Neutrophils # 11.0 H Seg Neutrophils # Man Lymphocytes # (Manual) Monocytes # (Manual) Eosinophils # (Manual) Basophils # (Manual) PT INR Fibrinogen dRVVT Confirm Interp Factor V Activity POC ABG pH POC ABG pCO2 POC ABG pO2 ABG pO2 ABG HCO3 ABG Base Excess ABG Hemoglobin Oxyhemoglobin Sodium Potassium Chloride Carbon Dioxide BUN 51 H Creatinine Glucose 117 H POC Glucose 136 H Lactic Acid Calcium Phosphorus Magnesium Direct Bilirubin AST ALT Alkaline Phosphatase Lactate Dehydrogenase Troponin T C-Reactive Protein Total Protein Albumin Prealbumin Triglycerides Cholesterol LDL Cholesterol Direct HDL Cholesterol PTH Intact Urine pH Urine WBC (Auto) Urine Creatinine Urine Total Protein Fluid Total Protein Vancomycin Trough Rheumatoid Factor Complement C4 Miscellaneous Test Crossmatch 12/09/16 12/09/16 12/09/16 12:29 17:52 23:10 WBC RBC Hgb Hct MCV MCH MCHC RDW Plt Count Lymph % (Auto) Pope % (Auto) Lymph # Pope # Baso # Seg Neutrophils % Seg Neuts % (Manual) Lymphocytes % (Manual) Monocytes % (Manual) Eosinophils % (Manual) Basophils % (Manual) Nucleated RBC % Seg Neutrophils # Seg Neutrophils # Man Lymphocytes # (Manual) Monocytes # (Manual) Eosinophils # (Manual) Basophils # (Manual) PT INR Fibrinogen dRVVT Confirm Interp Factor V Activity POC ABG pH POC ABG pCO2 POC ABG pO2 ABG pO2 ABG HCO3 ABG Base Excess ABG Hemoglobin Oxyhemoglobin Sodium Potassium Chloride Carbon Dioxide BUN Creatinine Glucose POC Glucose 139 H 140 H 129 H Lactic Acid Calcium Phosphorus Magnesium Direct Bilirubin AST ALT Alkaline Phosphatase Lactate Dehydrogenase Troponin T C-Reactive Protein Total Protein Albumin Prealbumin Triglycerides Cholesterol LDL Cholesterol Direct HDL Cholesterol PTH Intact Urine pH Urine WBC (Auto) Urine Creatinine Urine Total Protein Fluid Total Protein Vancomycin Trough Rheumatoid Factor Complement C4 Miscellaneous Test Crossmatch 12/10/16 12/10/16 12/10/16 05:00 05:00 06:54 WBC 15.7 H RBC 2.87 L Hgb 8.2 L Hct 24.4 L MCV MCH MCHC RDW 17.2 H Plt Count Lymph % (Auto) Pope % (Auto) 8.3 H Lymph # Pope # 1.3 H Baso # Seg Neutrophils % 72.8 H Seg Neuts % (Manual) Lymphocytes % (Manual) Monocytes % (Manual) Eosinophils % (Manual) Basophils % (Manual) Nucleated RBC % Seg Neutrophils # 11.4 H Seg Neutrophils # Man Lymphocytes # (Manual) Monocytes # (Manual) Eosinophils # (Manual) Basophils # (Manual) PT INR Fibrinogen dRVVT Confirm Interp Factor V Activity POC ABG pH POC ABG pCO2 POC ABG pO2 ABG pO2 ABG HCO3 ABG Base Excess ABG Hemoglobin Oxyhemoglobin Sodium Potassium Chloride Carbon Dioxide BUN 64 H Creatinine 1.4 H Glucose 134 H POC Glucose 154 H Lactic Acid Calcium Phosphorus Magnesium Direct Bilirubin AST ALT Alkaline Phosphatase Lactate Dehydrogenase Troponin T C-Reactive Protein Total Protein Albumin Prealbumin Triglycerides Cholesterol LDL Cholesterol Direct HDL Cholesterol PTH Intact Urine pH Urine WBC (Auto) Urine Creatinine Urine Total Protein Fluid Total Protein Vancomycin Trough Rheumatoid Factor Complement C4 Miscellaneous Test Crossmatch 12/10/16 12/10/16 12/10/16 11:58 17:29 23:52 WBC RBC Hgb Hct MCV MCH MCHC RDW Plt Count Lymph % (Auto) Pope % (Auto) Lymph # Pope # Baso # Seg Neutrophils % Seg Neuts % (Manual) Lymphocytes % (Manual) Monocytes % (Manual) Eosinophils % (Manual) Basophils % (Manual) Nucleated RBC % Seg Neutrophils # Seg Neutrophils # Man Lymphocytes # (Manual) Monocytes # (Manual) Eosinophils # (Manual) Basophils # (Manual) PT INR Fibrinogen dRVVT Confirm Interp Factor V Activity POC ABG pH POC ABG pCO2 POC ABG pO2 ABG pO2 ABG HCO3 ABG Base Excess ABG Hemoglobin Oxyhemoglobin Sodium Potassium Chloride Carbon Dioxide BUN Creatinine Glucose POC Glucose 144 H 163 H 125 H Lactic Acid Calcium Phosphorus Magnesium Direct Bilirubin AST ALT Alkaline Phosphatase Lactate Dehydrogenase Troponin T C-Reactive Protein Total Protein Albumin Prealbumin Triglycerides Cholesterol LDL Cholesterol Direct HDL Cholesterol PTH Intact Urine pH Urine WBC (Auto) Urine Creatinine Urine Total Protein Fluid Total Protein Vancomycin Trough Rheumatoid Factor Complement C4 Miscellaneous Test Crossmatch 12/11/16 12/11/16 12/11/16 05:38 06:30 06:30 WBC 14.4 H RBC 2.76 L Hgb 7.7 L Hct 23.4 L MCV MCH MCHC RDW 17.2 H Plt Count Lymph % (Auto) Pope % (Auto) 8.8 H Lymph # Pope # 1.3 H Baso # Seg Neutrophils % 72.5 H Seg Neuts % (Manual) Lymphocytes % (Manual) Monocytes % (Manual) Eosinophils % (Manual) Basophils % (Manual) Nucleated RBC % Seg Neutrophils # 10.5 H Seg Neutrophils # Man Lymphocytes # (Manual) Monocytes # (Manual) Eosinophils # (Manual) Basophils # (Manual) PT INR Fibrinogen dRVVT Confirm Interp Factor V Activity POC ABG pH POC ABG pCO2 POC ABG pO2 ABG pO2 ABG HCO3 ABG Base Excess ABG Hemoglobin Oxyhemoglobin Sodium Potassium Chloride Carbon Dioxide BUN 43 H Creatinine Glucose 124 H POC Glucose 141 H Lactic Acid Calcium 8.3 L Phosphorus Magnesium 1.60 L Direct Bilirubin AST ALT Alkaline Phosphatase Lactate Dehydrogenase Troponin T C-Reactive Protein Total Protein Albumin Prealbumin Triglycerides Cholesterol LDL Cholesterol Direct HDL Cholesterol PTH Intact Urine pH Urine WBC (Auto) Urine Creatinine Urine Total Protein Fluid Total Protein Vancomycin Trough Rheumatoid Factor Complement C4 Miscellaneous Test Crossmatch 12/11/16 12/11/16 12/11/16 11:15 17:59 23:48 WBC RBC Hgb Hct MCV MCH MCHC RDW Plt Count Lymph % (Auto) Pope % (Auto) Lymph # Pope # Baso # Seg Neutrophils % Seg Neuts % (Manual) Lymphocytes % (Manual) Monocytes % (Manual) Eosinophils % (Manual) Basophils % (Manual) Nucleated RBC % Seg Neutrophils # Seg Neutrophils # Man Lymphocytes # (Manual) Monocytes # (Manual) Eosinophils # (Manual) Basophils # (Manual) PT INR Fibrinogen dRVVT Confirm Interp Factor V Activity POC ABG pH POC ABG pCO2 POC ABG pO2 ABG pO2 ABG HCO3 ABG Base Excess ABG Hemoglobin Oxyhemoglobin Sodium Potassium Chloride Carbon Dioxide BUN Creatinine Glucose POC Glucose 188 H 106 H 119 H Lactic Acid Calcium Phosphorus Magnesium Direct Bilirubin AST ALT Alkaline Phosphatase Lactate Dehydrogenase Troponin T C-Reactive Protein Total Protein Albumin Prealbumin Triglycerides Cholesterol LDL Cholesterol Direct HDL Cholesterol PTH Intact Urine pH Urine WBC (Auto) Urine Creatinine Urine Total Protein Fluid Total Protein Vancomycin Trough Rheumatoid Factor Complement C4 Miscellaneous Test Crossmatch 12/12/16 12/12/16 12/12/16 05:00 06:01 12:20 WBC 16.7 H RBC 2.87 L Hgb 8.0 L Hct 24.2 L MCV MCH MCHC RDW 17.6 H Plt Count Lymph % (Auto) Pope % (Auto) Lymph # Pope # 1.2 H Baso # Seg Neutrophils % 75.3 H Seg Neuts % (Manual) Lymphocytes % (Manual) Monocytes % (Manual) Eosinophils % (Manual) Basophils % (Manual) Nucleated RBC % Seg Neutrophils # 12.6 H Seg Neutrophils # Man Lymphocytes # (Manual) Monocytes # (Manual) Eosinophils # (Manual) Basophils # (Manual) PT INR Fibrinogen dRVVT Confirm Interp Factor V Activity POC ABG pH POC ABG pCO2 POC ABG pO2 ABG pO2 ABG HCO3 ABG Base Excess ABG Hemoglobin Oxyhemoglobin Sodium Potassium Chloride Carbon Dioxide BUN Creatinine Glucose POC Glucose 134 H 149 H Lactic Acid Calcium Phosphorus Magnesium Direct Bilirubin AST ALT Alkaline Phosphatase Lactate Dehydrogenase Troponin T C-Reactive Protein Total Protein Albumin Prealbumin Triglycerides Cholesterol LDL Cholesterol Direct HDL Cholesterol PTH Intact Urine pH Urine WBC (Auto) Urine Creatinine Urine Total Protein Fluid Total Protein Vancomycin Trough Rheumatoid Factor Complement C4 Miscellaneous Test Crossmatch 12/12/16 12/12/16 12/12/16 17:38 23:01 Unknown WBC RBC Hgb Hct MCV MCH MCHC RDW Plt Count Lymph % (Auto) Pope % (Auto) Lymph # Pope # Baso # Seg Neutrophils % Seg Neuts % (Manual) Lymphocytes % (Manual) Monocytes % (Manual) Eosinophils % (Manual) Basophils % (Manual) Nucleated RBC % Seg Neutrophils # Seg Neutrophils # Man Lymphocytes # (Manual) Monocytes # (Manual) Eosinophils # (Manual) Basophils # (Manual) PT INR Fibrinogen dRVVT Confirm Interp Factor V Activity POC ABG pH POC ABG pCO2 POC ABG pO2 ABG pO2 ABG HCO3 ABG Base Excess ABG Hemoglobin Oxyhemoglobin Sodium Potassium Chloride Carbon Dioxide BUN 60 H Creatinine 1.3 H Glucose 126 H POC Glucose 127 H 144 H Lactic Acid Calcium Phosphorus Magnesium Direct Bilirubin AST ALT Alkaline Phosphatase Lactate Dehydrogenase Troponin T C-Reactive Protein Total Protein Albumin Prealbumin Triglycerides Cholesterol LDL Cholesterol Direct HDL Cholesterol PTH Intact Urine pH Urine WBC (Auto) Urine Creatinine Urine Total Protein Fluid Total Protein Vancomycin Trough Rheumatoid Factor Complement C4 Miscellaneous Test Crossmatch 12/13/16 12/13/16 12/13/16 04:00 04:00 05:19 WBC 18.7 H RBC 2.89 L Hgb 8.3 L Hct 24.6 L MCV MCH MCHC RDW 17.5 H Plt Count Lymph % (Auto) Pope % (Auto) Lymph # Pope # 1.3 H Baso # Seg Neutrophils % 71.5 H Seg Neuts % (Manual) Lymphocytes % (Manual) Monocytes % (Manual) Eosinophils % (Manual) Basophils % (Manual) Nucleated RBC % Seg Neutrophils # 13.4 H Seg Neutrophils # Man Lymphocytes # (Manual) Monocytes # (Manual) Eosinophils # (Manual) Basophils # (Manual) PT INR Fibrinogen dRVVT Confirm Interp Factor V Activity POC ABG pH POC ABG pCO2 POC ABG pO2 ABG pO2 ABG HCO3 ABG Base Excess ABG Hemoglobin Oxyhemoglobin Sodium Potassium Chloride Carbon Dioxide BUN 73 H Creatinine 1.5 H Glucose 141 H POC Glucose 171 H Lactic Acid Calcium Phosphorus Magnesium Direct Bilirubin AST ALT Alkaline Phosphatase Lactate Dehydrogenase Troponin T C-Reactive Protein Total Protein Albumin Prealbumin Triglycerides Cholesterol LDL Cholesterol Direct HDL Cholesterol PTH Intact Urine pH Urine WBC (Auto) Urine Creatinine Urine Total Protein Fluid Total Protein Vancomycin Trough Rheumatoid Factor Complement C4 Miscellaneous Test Crossmatch 12/13/16 12/13/16 12/14/16 12:28 16:48 00:01 WBC RBC Hgb Hct MCV MCH MCHC RDW Plt Count Lymph % (Auto) Pope % (Auto) Lymph # Pope # Baso # Seg Neutrophils % Seg Neuts % (Manual) Lymphocytes % (Manual) Monocytes % (Manual) Eosinophils % (Manual) Basophils % (Manual) Nucleated RBC % Seg Neutrophils # Seg Neutrophils # Man Lymphocytes # (Manual) Monocytes # (Manual) Eosinophils # (Manual) Basophils # (Manual) PT INR Fibrinogen dRVVT Confirm Interp Factor V Activity POC ABG pH POC ABG pCO2 POC ABG pO2 ABG pO2 ABG HCO3 ABG Base Excess ABG Hemoglobin Oxyhemoglobin Sodium Potassium Chloride Carbon Dioxide BUN Creatinine Glucose POC Glucose 206 H 173 H 139 H Lactic Acid Calcium Phosphorus Magnesium Direct Bilirubin AST ALT Alkaline Phosphatase Lactate Dehydrogenase Troponin T C-Reactive Protein Total Protein Albumin Prealbumin Triglycerides Cholesterol LDL Cholesterol Direct HDL Cholesterol PTH Intact Urine pH Urine WBC (Auto) Urine Creatinine Urine Total Protein Fluid Total Protein Vancomycin Trough Rheumatoid Factor Complement C4 Miscellaneous Test Crossmatch 12/14/16 12/14/16 12/14/16 05:16 06:10 11:17 WBC RBC Hgb Hct MCV MCH MCHC RDW Plt Count Lymph % (Auto) Pope % (Auto) Lymph # Pope # Baso # Seg Neutrophils % Seg Neuts % (Manual) Lymphocytes % (Manual) Monocytes % (Manual) Eosinophils % (Manual) Basophils % (Manual) Nucleated RBC % Seg Neutrophils # Seg Neutrophils # Man Lymphocytes # (Manual) Monocytes # (Manual) Eosinophils # (Manual) Basophils # (Manual) PT INR Fibrinogen dRVVT Confirm Interp Factor V Activity POC ABG pH POC ABG pCO2 POC ABG pO2 ABG pO2 ABG HCO3 ABG Base Excess ABG Hemoglobin Oxyhemoglobin Sodium Potassium Chloride Carbon Dioxide BUN 57 H Creatinine 1.4 H Glucose 135 H POC Glucose 158 H 137 H Lactic Acid Calcium Phosphorus Magnesium Direct Bilirubin AST ALT Alkaline Phosphatase Lactate Dehydrogenase Troponin T C-Reactive Protein Total Protein Albumin Prealbumin Triglycerides Cholesterol LDL Cholesterol Direct HDL Cholesterol PTH Intact Urine pH Urine WBC (Auto) Urine Creatinine Urine Total Protein Fluid Total Protein Vancomycin Trough Rheumatoid Factor Complement C4 Miscellaneous Test Crossmatch 12/14/16 12/14/16 12/15/16 17:52 23:27 04:00 WBC RBC Hgb Hct MCV MCH MCHC RDW Plt Count Lymph % (Auto) Pope % (Auto) Lymph # Pope # Baso # Seg Neutrophils % Seg Neuts % (Manual) Lymphocytes % (Manual) Monocytes % (Manual) Eosinophils % (Manual) Basophils % (Manual) Nucleated RBC % Seg Neutrophils # Seg Neutrophils # Man Lymphocytes # (Manual) Monocytes # (Manual) Eosinophils # (Manual) Basophils # (Manual) PT INR Fibrinogen dRVVT Confirm Interp Factor V Activity POC ABG pH POC ABG pCO2 POC ABG pO2 ABG pO2 ABG HCO3 ABG Base Excess ABG Hemoglobin Oxyhemoglobin Sodium Potassium Chloride 97.9 L Carbon Dioxide BUN 75 H Creatinine 1.6 H Glucose 122 H POC Glucose 149 H 163 H Lactic Acid Calcium Phosphorus 5.20 H Magnesium Direct Bilirubin AST ALT Alkaline Phosphatase Lactate Dehydrogenase Troponin T C-Reactive Protein Total Protein Albumin Prealbumin Triglycerides Cholesterol LDL Cholesterol Direct HDL Cholesterol PTH Intact Urine pH Urine WBC (Auto) Urine Creatinine Urine Total Protein Fluid Total Protein Vancomycin Trough Rheumatoid Factor Complement C4 Miscellaneous Test Crossmatch 12/15/16 12/15/16 12/15/16 05:50 11:24 17:01 WBC RBC Hgb Hct MCV MCH MCHC RDW Plt Count Lymph % (Auto) Pope % (Auto) Lymph # Pope # Baso # Seg Neutrophils % Seg Neuts % (Manual) Lymphocytes % (Manual) Monocytes % (Manual) Eosinophils % (Manual) Basophils % (Manual) Nucleated RBC % Seg Neutrophils # Seg Neutrophils # Man Lymphocytes # (Manual) Monocytes # (Manual) Eosinophils # (Manual) Basophils # (Manual) PT INR Fibrinogen dRVVT Confirm Interp Factor V Activity POC ABG pH POC ABG pCO2 POC ABG pO2 ABG pO2 ABG HCO3 ABG Base Excess ABG Hemoglobin Oxyhemoglobin Sodium Potassium Chloride Carbon Dioxide BUN Creatinine Glucose POC Glucose 150 H 146 H 167 H Lactic Acid Calcium Phosphorus Magnesium Direct Bilirubin AST ALT Alkaline Phosphatase Lactate Dehydrogenase Troponin T C-Reactive Protein Total Protein Albumin Prealbumin Triglycerides Cholesterol LDL Cholesterol Direct HDL Cholesterol PTH Intact Urine pH Urine WBC (Auto) Urine Creatinine Urine Total Protein Fluid Total Protein Vancomycin Trough Rheumatoid Factor Complement C4 Miscellaneous Test Crossmatch 12/15/16 12/16/16 12/16/16 23:34 05:25 11:24 WBC RBC Hgb Hct MCV MCH MCHC RDW Plt Count Lymph % (Auto) Pope % (Auto) Lymph # Pope # Baso # Seg Neutrophils % Seg Neuts % (Manual) Lymphocytes % (Manual) Monocytes % (Manual) Eosinophils % (Manual) Basophils % (Manual) Nucleated RBC % Seg Neutrophils # Seg Neutrophils # Man Lymphocytes # (Manual) Monocytes # (Manual) Eosinophils # (Manual) Basophils # (Manual) PT INR Fibrinogen dRVVT Confirm Interp Factor V Activity POC ABG pH POC ABG pCO2 POC ABG pO2 ABG pO2 ABG HCO3 ABG Base Excess ABG Hemoglobin Oxyhemoglobin Sodium Potassium Chloride Carbon Dioxide BUN Creatinine Glucose POC Glucose 127 H 139 H 165 H Lactic Acid Calcium Phosphorus Magnesium Direct Bilirubin AST ALT Alkaline Phosphatase Lactate Dehydrogenase Troponin T C-Reactive Protein Total Protein Albumin Prealbumin Triglycerides Cholesterol LDL Cholesterol Direct HDL Cholesterol PTH Intact Urine pH Urine WBC (Auto) Urine Creatinine Urine Total Protein Fluid Total Protein Vancomycin Trough Rheumatoid Factor Complement C4 Miscellaneous Test Crossmatch 12/16/16 12/16/16 12/16/16 15:30 16:25 17:31 WBC 17.8 H RBC 2.38 L Hgb 6.4 L Hct 20.3 L MCV MCH 27 L MCHC RDW 17.4 H Plt Count Lymph % (Auto) Pope % (Auto) Lymph # Pope # Baso # Seg Neutrophils % Seg Neuts % (Manual) Lymphocytes % (Manual) Monocytes % (Manual) 10.0 H Eosinophils % (Manual) Basophils % (Manual) Nucleated RBC % Seg Neutrophils # Seg Neutrophils # Man 8.5 H Lymphocytes # (Manual) Monocytes # (Manual) 1.8 H Eosinophils # (Manual) Basophils # (Manual) PT INR Fibrinogen dRVVT Confirm Interp Factor V Activity POC ABG pH POC ABG pCO2 POC ABG pO2 ABG pO2 ABG HCO3 ABG Base Excess ABG Hemoglobin Oxyhemoglobin Sodium Potassium Chloride Carbon Dioxide BUN Creatinine Glucose POC Glucose 176 H Lactic Acid Calcium Phosphorus Magnesium Direct Bilirubin AST ALT Alkaline Phosphatase Lactate Dehydrogenase Troponin T C-Reactive Protein Total Protein Albumin Prealbumin Triglycerides Cholesterol LDL Cholesterol Direct HDL Cholesterol PTH Intact Urine pH Urine WBC (Auto) Urine Creatinine Urine Total Protein Fluid Total Protein Vancomycin Trough Rheumatoid Factor Complement C4 Miscellaneous Test Crossmatch See Detail 12/17/16 12/17/16 12/17/16 00:14 04:00 05:00 WBC 20.0 H RBC 2.99 L Hgb 8.5 L Hct 25.7 L MCV MCH MCHC RDW 17.2 H Plt Count Lymph % (Auto) Pope % (Auto) Lymph # Pope # Baso # Seg Neutrophils % Seg Neuts % (Manual) Lymphocytes % (Manual) Monocytes % (Manual) Eosinophils % (Manual) Basophils % (Manual) Nucleated RBC % Seg Neutrophils # Seg Neutrophils # Man Lymphocytes # (Manual) Monocytes # (Manual) Eosinophils # (Manual) Basophils # (Manual) PT INR Fibrinogen dRVVT Confirm Interp Factor V Activity POC ABG pH POC ABG pCO2 POC ABG pO2 ABG pO2 ABG HCO3 ABG Base Excess ABG Hemoglobin Oxyhemoglobin Sodium Potassium Chloride 97.7 L Carbon Dioxide BUN 73 H Creatinine 1.7 H Glucose 136 H POC Glucose 148 H Lactic Acid Calcium Phosphorus 2.20 L Magnesium 2.70 H Direct Bilirubin AST ALT Alkaline Phosphatase Lactate Dehydrogenase Troponin T C-Reactive Protein Total Protein Albumin Prealbumin Triglycerides Cholesterol LDL Cholesterol Direct HDL Cholesterol PTH Intact Urine pH Urine WBC (Auto) Urine Creatinine Urine Total Protein Fluid Total Protein Vancomycin Trough Rheumatoid Factor Complement C4 Miscellaneous Test Crossmatch 12/17/16 12/17/16 12/17/16 05:39 12:50 16:32 WBC RBC Hgb Hct MCV MCH MCHC RDW Plt Count Lymph % (Auto) Pope % (Auto) Lymph # Pope # Baso # Seg Neutrophils % Seg Neuts % (Manual) Lymphocytes % (Manual) Monocytes % (Manual) Eosinophils % (Manual) Basophils % (Manual) Nucleated RBC % Seg Neutrophils # Seg Neutrophils # Man Lymphocytes # (Manual) Monocytes # (Manual) Eosinophils # (Manual) Basophils # (Manual) PT INR Fibrinogen dRVVT Confirm Interp Factor V Activity POC ABG pH POC ABG pCO2 POC ABG pO2 ABG pO2 ABG HCO3 ABG Base Excess ABG Hemoglobin Oxyhemoglobin Sodium Potassium Chloride Carbon Dioxide BUN Creatinine Glucose POC Glucose 162 H 146 H 169 H Lactic Acid Calcium Phosphorus Magnesium Direct Bilirubin AST ALT Alkaline Phosphatase Lactate Dehydrogenase Troponin T C-Reactive Protein Total Protein Albumin Prealbumin Triglycerides Cholesterol LDL Cholesterol Direct HDL Cholesterol PTH Intact Urine pH Urine WBC (Auto) Urine Creatinine Urine Total Protein Fluid Total Protein Vancomycin Trough Rheumatoid Factor Complement C4 Miscellaneous Test Crossmatch 12/17/16 12/18/16 12/18/16 23:57 05:00 05:32 WBC RBC Hgb Hct MCV MCH MCHC RDW Plt Count Lymph % (Auto) Pope % (Auto) Lymph # Pope # Baso # Seg Neutrophils % Seg Neuts % (Manual) Lymphocytes % (Manual) Monocytes % (Manual) Eosinophils % (Manual) Basophils % (Manual) Nucleated RBC % Seg Neutrophils # Seg Neutrophils # Man Lymphocytes # (Manual) Monocytes # (Manual) Eosinophils # (Manual) Basophils # (Manual) PT INR Fibrinogen dRVVT Confirm Interp Factor V Activity POC ABG pH POC ABG pCO2 POC ABG pO2 ABG pO2 ABG HCO3 ABG Base Excess ABG Hemoglobin Oxyhemoglobin Sodium Potassium Chloride 97.0 L Carbon Dioxide BUN 63 H Creatinine 1.4 H Glucose 174 H POC Glucose 145 H 201 H Lactic Acid Calcium Phosphorus 1.70 L D Magnesium Direct Bilirubin AST ALT Alkaline Phosphatase 257 H Lactate Dehydrogenase Troponin T C-Reactive Protein Total Protein 5.9 L Albumin 1.8 L Prealbumin Triglycerides Cholesterol LDL Cholesterol Direct HDL Cholesterol PTH Intact Urine pH Urine WBC (Auto) Urine Creatinine Urine Total Protein Fluid Total Protein Vancomycin Trough Rheumatoid Factor Complement C4 Miscellaneous Test Crossmatch 12/18/16 12/18/16 12/18/16 11:43 16:52 23:52 WBC RBC Hgb Hct MCV MCH MCHC RDW Plt Count Lymph % (Auto) Pope % (Auto) Lymph # Pope # Baso # Seg Neutrophils % Seg Neuts % (Manual) Lymphocytes % (Manual) Monocytes % (Manual) Eosinophils % (Manual) Basophils % (Manual) Nucleated RBC % Seg Neutrophils # Seg Neutrophils # Man Lymphocytes # (Manual) Monocytes # (Manual) Eosinophils # (Manual) Basophils # (Manual) PT INR Fibrinogen dRVVT Confirm Interp Factor V Activity POC ABG pH POC ABG pCO2 POC ABG pO2 ABG pO2 ABG HCO3 ABG Base Excess ABG Hemoglobin Oxyhemoglobin Sodium Potassium Chloride Carbon Dioxide BUN Creatinine Glucose POC Glucose 177 H 110 H 162 H Lactic Acid Calcium Phosphorus Magnesium Direct Bilirubin AST ALT Alkaline Phosphatase Lactate Dehydrogenase Troponin T C-Reactive Protein Total Protein Albumin Prealbumin Triglycerides Cholesterol LDL Cholesterol Direct HDL Cholesterol PTH Intact Urine pH Urine WBC (Auto) Urine Creatinine Urine Total Protein Fluid Total Protein Vancomycin Trough Rheumatoid Factor Complement C4 Miscellaneous Test Crossmatch 12/19/16 12/19/16 12/19/16 05:02 05:24 09:30 WBC 20.1 H RBC 2.73 L Hgb 7.6 L Hct 23.6 L MCV MCH MCHC RDW 17.6 H Plt Count Lymph % (Auto) Pope % (Auto) Lymph # Pope # Baso # Seg Neutrophils % Seg Neuts % (Manual) Lymphocytes % (Manual) 13.0 L Monocytes % (Manual) Eosinophils % (Manual) Basophils % (Manual) Nucleated RBC % 1.0 H Seg Neutrophils # Seg Neutrophils # Man 12.9 H Lymphocytes # (Manual) Monocytes # (Manual) 1.4 H Eosinophils # (Manual) Basophils # (Manual) 0.2 H PT INR Fibrinogen dRVVT Confirm Interp Factor V Activity POC ABG pH POC ABG pCO2 POC ABG pO2 ABG pO2 ABG HCO3 ABG Base Excess ABG Hemoglobin Oxyhemoglobin Sodium Potassium Chloride 97.8 L Carbon Dioxide BUN 84 H Creatinine 1.6 H Glucose 133 H POC Glucose 134 H Lactic Acid Calcium Phosphorus Magnesium Direct Bilirubin AST ALT Alkaline Phosphatase Lactate Dehydrogenase Troponin T C-Reactive Protein Total Protein Albumin Prealbumin Triglycerides Cholesterol LDL Cholesterol Direct HDL Cholesterol PTH Intact Urine pH Urine WBC (Auto) Urine Creatinine Urine Total Protein Fluid Total Protein Vancomycin Trough Rheumatoid Factor Complement C4 Miscellaneous Test Crossmatch 12/19/16 12/19/16 12/19/16 09:36 11:12 18:29 WBC RBC Hgb Hct MCV MCH MCHC RDW Plt Count Lymph % (Auto) Pope % (Auto) Lymph # Pope # Baso # Seg Neutrophils % Seg Neuts % (Manual) Lymphocytes % (Manual) Monocytes % (Manual) Eosinophils % (Manual) Basophils % (Manual) Nucleated RBC % Seg Neutrophils # Seg Neutrophils # Man Lymphocytes # (Manual) Monocytes # (Manual) Eosinophils # (Manual) Basophils # (Manual) PT INR Fibrinogen dRVVT Confirm Interp Factor V Activity POC ABG pH 7.503 H POC ABG pCO2 30.1 L POC ABG pO2 ABG pO2 ABG HCO3 ABG Base Excess ABG Hemoglobin Oxyhemoglobin Sodium Potassium Chloride Carbon Dioxide BUN Creatinine Glucose POC Glucose 138 H 156 H Lactic Acid Calcium Phosphorus Magnesium Direct Bilirubin AST ALT Alkaline Phosphatase Lactate Dehydrogenase Troponin T C-Reactive Protein Total Protein Albumin Prealbumin Triglycerides Cholesterol LDL Cholesterol Direct HDL Cholesterol PTH Intact Urine pH Urine WBC (Auto) Urine Creatinine Urine Total Protein Fluid Total Protein Vancomycin Trough Rheumatoid Factor Complement C4 Miscellaneous Test Crossmatch 12/20/16 12/20/16 12/20/16 00:03 06:17 07:07 WBC RBC Hgb Hct MCV MCH MCHC RDW Plt Count Lymph % (Auto) Pope % (Auto) Lymph # Pope # Baso # Seg Neutrophils % Seg Neuts % (Manual) Lymphocytes % (Manual) Monocytes % (Manual) Eosinophils % (Manual) Basophils % (Manual) Nucleated RBC % Seg Neutrophils # Seg Neutrophils # Man Lymphocytes # (Manual) Monocytes # (Manual) Eosinophils # (Manual) Basophils # (Manual) PT INR Fibrinogen dRVVT Confirm Interp Factor V Activity POC ABG pH POC ABG pCO2 POC ABG pO2 ABG pO2 ABG HCO3 ABG Base Excess ABG Hemoglobin Oxyhemoglobin Sodium Potassium Chloride 97.1 L Carbon Dioxide 20 L BUN 97 H Creatinine 1.8 H Glucose 153 H POC Glucose 152 H 175 H Lactic Acid Calcium Phosphorus Magnesium Direct Bilirubin AST ALT Alkaline Phosphatase Lactate Dehydrogenase Troponin T C-Reactive Protein Total Protein Albumin Prealbumin Triglycerides Cholesterol LDL Cholesterol Direct HDL Cholesterol PTH Intact Urine pH Urine WBC (Auto) Urine Creatinine Urine Total Protein Fluid Total Protein Vancomycin Trough Rheumatoid Factor Complement C4 Miscellaneous Test Crossmatch 12/20/16 12/20/16 12/20/16 12:00 17:42 23:53 WBC RBC Hgb Hct MCV MCH MCHC RDW Plt Count Lymph % (Auto) Pope % (Auto) Lymph # Pope # Baso # Seg Neutrophils % Seg Neuts % (Manual) Lymphocytes % (Manual) Monocytes % (Manual) Eosinophils % (Manual) Basophils % (Manual) Nucleated RBC % Seg Neutrophils # Seg Neutrophils # Man Lymphocytes # (Manual) Monocytes # (Manual) Eosinophils # (Manual) Basophils # (Manual) PT INR Fibrinogen dRVVT Confirm Interp Factor V Activity POC ABG pH POC ABG pCO2 POC ABG pO2 ABG pO2 ABG HCO3 ABG Base Excess ABG Hemoglobin Oxyhemoglobin Sodium Potassium Chloride Carbon Dioxide BUN Creatinine Glucose POC Glucose 141 H 156 H 132 H Lactic Acid Calcium Phosphorus Magnesium Direct Bilirubin AST ALT Alkaline Phosphatase Lactate Dehydrogenase Troponin T C-Reactive Protein Total Protein Albumin Prealbumin Triglycerides Cholesterol LDL Cholesterol Direct HDL Cholesterol PTH Intact Urine pH Urine WBC (Auto) Urine Creatinine Urine Total Protein Fluid Total Protein Vancomycin Trough Rheumatoid Factor Complement C4 Miscellaneous Test Crossmatch 12/21/16 12/21/16 12/21/16 05:49 08:50 12:19 WBC RBC Hgb Hct MCV MCH MCHC RDW Plt Count Lymph % (Auto) Pope % (Auto) Lymph # Pope # Baso # Seg Neutrophils % Seg Neuts % (Manual) Lymphocytes % (Manual) Monocytes % (Manual) Eosinophils % (Manual) Basophils % (Manual) Nucleated RBC % Seg Neutrophils # Seg Neutrophils # Man Lymphocytes # (Manual) Monocytes # (Manual) Eosinophils # (Manual) Basophils # (Manual) PT INR Fibrinogen dRVVT Confirm Interp Factor V Activity POC ABG pH POC ABG pCO2 POC ABG pO2 ABG pO2 ABG HCO3 ABG Base Excess ABG Hemoglobin Oxyhemoglobin Sodium Potassium 5.2 H D Chloride Carbon Dioxide BUN 63 H Creatinine Glucose 122 H POC Glucose 132 H 136 H Lactic Acid Calcium 8.3 L Phosphorus Magnesium Direct Bilirubin AST ALT Alkaline Phosphatase Lactate Dehydrogenase Troponin T C-Reactive Protein Total Protein Albumin Prealbumin Triglycerides Cholesterol LDL Cholesterol Direct HDL Cholesterol PTH Intact Urine pH Urine WBC (Auto) Urine Creatinine Urine Total Protein Fluid Total Protein Vancomycin Trough Rheumatoid Factor Complement C4 Miscellaneous Test Crossmatch 12/21/16 12/21/16 12/22/16 17:22 23:58 05:49 WBC RBC Hgb Hct MCV MCH MCHC RDW Plt Count Lymph % (Auto) Pope % (Auto) Lymph # Pope # Baso # Seg Neutrophils % Seg Neuts % (Manual) Lymphocytes % (Manual) Monocytes % (Manual) Eosinophils % (Manual) Basophils % (Manual) Nucleated RBC % Seg Neutrophils # Seg Neutrophils # Man Lymphocytes # (Manual) Monocytes # (Manual) Eosinophils # (Manual) Basophils # (Manual) PT INR Fibrinogen dRVVT Confirm Interp Factor V Activity POC ABG pH POC ABG pCO2 POC ABG pO2 ABG pO2 ABG HCO3 ABG Base Excess ABG Hemoglobin Oxyhemoglobin Sodium Potassium Chloride Carbon Dioxide BUN Creatinine Glucose POC Glucose 135 H 149 H 140 H Lactic Acid Calcium Phosphorus Magnesium Direct Bilirubin AST ALT Alkaline Phosphatase Lactate Dehydrogenase Troponin T C-Reactive Protein Total Protein Albumin Prealbumin Triglycerides Cholesterol LDL Cholesterol Direct HDL Cholesterol PTH Intact Urine pH Urine WBC (Auto) Urine Creatinine Urine Total Protein Fluid Total Protein Vancomycin Trough Rheumatoid Factor Complement C4 Miscellaneous Test Crossmatch 12/22/16 12/22/16 12/22/16 06:10 11:17 17:31 WBC RBC Hgb Hct MCV MCH MCHC RDW Plt Count Lymph % (Auto) Pope % (Auto) Lymph # Pope # Baso # Seg Neutrophils % Seg Neuts % (Manual) Lymphocytes % (Manual) Monocytes % (Manual) Eosinophils % (Manual) Basophils % (Manual) Nucleated RBC % Seg Neutrophils # Seg Neutrophils # Man Lymphocytes # (Manual) Monocytes # (Manual) Eosinophils # (Manual) Basophils # (Manual) PT INR Fibrinogen dRVVT Confirm Interp Factor V Activity POC ABG pH POC ABG pCO2 POC ABG pO2 ABG pO2 ABG HCO3 ABG Base Excess ABG Hemoglobin Oxyhemoglobin Sodium Potassium Chloride Carbon Dioxide BUN 76 H Creatinine 1.5 H Glucose 241 H POC Glucose 193 H 148 H Lactic Acid Calcium Phosphorus Magnesium Direct Bilirubin AST ALT Alkaline Phosphatase Lactate Dehydrogenase Troponin T C-Reactive Protein Total Protein Albumin Prealbumin Triglycerides Cholesterol LDL Cholesterol Direct HDL Cholesterol PTH Intact Urine pH Urine WBC (Auto) Urine Creatinine Urine Total Protein Fluid Total Protein Vancomycin Trough Rheumatoid Factor Complement C4 Miscellaneous Test Crossmatch 12/22/16 12/23/16 12/23/16 23:58 05:00 05:26 WBC RBC Hgb Hct MCV MCH MCHC RDW Plt Count Lymph % (Auto) Pope % (Auto) Lymph # Pope # Baso # Seg Neutrophils % Seg Neuts % (Manual) Lymphocytes % (Manual) Monocytes % (Manual) Eosinophils % (Manual) Basophils % (Manual) Nucleated RBC % Seg Neutrophils # Seg Neutrophils # Man Lymphocytes # (Manual) Monocytes # (Manual) Eosinophils # (Manual) Basophils # (Manual) PT INR Fibrinogen dRVVT Confirm Interp Factor V Activity POC ABG pH POC ABG pCO2 POC ABG pO2 ABG pO2 ABG HCO3 ABG Base Excess ABG Hemoglobin Oxyhemoglobin Sodium Potassium Chloride Carbon Dioxide BUN 49 H Creatinine Glucose 143 H POC Glucose 165 H 154 H Lactic Acid Calcium 8.2 L Phosphorus Magnesium 1.60 L Direct Bilirubin AST ALT Alkaline Phosphatase Lactate Dehydrogenase Troponin T C-Reactive Protein Total Protein Albumin Prealbumin Triglycerides Cholesterol LDL Cholesterol Direct HDL Cholesterol PTH Intact Urine pH Urine WBC (Auto) Urine Creatinine Urine Total Protein Fluid Total Protein Vancomycin Trough Rheumatoid Factor Complement C4 Miscellaneous Test Crossmatch 12/23/16 12/23/16 12/24/16 12:35 17:01 00:01 WBC RBC Hgb Hct MCV MCH MCHC RDW Plt Count Lymph % (Auto) Pope % (Auto) Lymph # Pope # Baso # Seg Neutrophils % Seg Neuts % (Manual) Lymphocytes % (Manual) Monocytes % (Manual) Eosinophils % (Manual) Basophils % (Manual) Nucleated RBC % Seg Neutrophils # Seg Neutrophils # Man Lymphocytes # (Manual) Monocytes # (Manual) Eosinophils # (Manual) Basophils # (Manual) PT INR Fibrinogen dRVVT Confirm Interp Factor V Activity POC ABG pH POC ABG pCO2 POC ABG pO2 ABG pO2 ABG HCO3 ABG Base Excess ABG Hemoglobin Oxyhemoglobin Sodium Potassium Chloride Carbon Dioxide BUN Creatinine Glucose POC Glucose 164 H 149 H 135 H Lactic Acid Calcium Phosphorus Magnesium Direct Bilirubin AST ALT Alkaline Phosphatase Lactate Dehydrogenase Troponin T C-Reactive Protein Total Protein Albumin Prealbumin Triglycerides Cholesterol LDL Cholesterol Direct HDL Cholesterol PTH Intact Urine pH Urine WBC (Auto) Urine Creatinine Urine Total Protein Fluid Total Protein Vancomycin Trough Rheumatoid Factor Complement C4 Miscellaneous Test Crossmatch 12/24/16 12/24/16 12/24/16 05:41 07:01 11:38 WBC RBC Hgb Hct MCV MCH MCHC RDW Plt Count Lymph % (Auto) Pope % (Auto) Lymph # Pope # Baso # Seg Neutrophils % Seg Neuts % (Manual) Lymphocytes % (Manual) Monocytes % (Manual) Eosinophils % (Manual) Basophils % (Manual) Nucleated RBC % Seg Neutrophils # Seg Neutrophils # Man Lymphocytes # (Manual) Monocytes # (Manual) Eosinophils # (Manual) Basophils # (Manual) PT INR Fibrinogen dRVVT Confirm Interp Factor V Activity POC ABG pH POC ABG pCO2 POC ABG pO2 ABG pO2 ABG HCO3 ABG Base Excess ABG Hemoglobin Oxyhemoglobin Sodium Potassium Chloride Carbon Dioxide BUN 72 H Creatinine 1.3 H Glucose 130 H POC Glucose 132 H 156 H Lactic Acid Calcium 8.2 L Phosphorus Magnesium Direct Bilirubin AST ALT Alkaline Phosphatase Lactate Dehydrogenase Troponin T C-Reactive Protein Total Protein Albumin Prealbumin Triglycerides Cholesterol LDL Cholesterol Direct HDL Cholesterol PTH Intact Urine pH Urine WBC (Auto) Urine Creatinine Urine Total Protein Fluid Total Protein Vancomycin Trough Rheumatoid Factor Complement C4 Miscellaneous Test Crossmatch 12/24/16 12/25/16 12/25/16 17:53 00:23 05:45 WBC RBC Hgb Hct MCV MCH MCHC RDW Plt Count Lymph % (Auto) Pope % (Auto) Lymph # Pope # Baso # Seg Neutrophils % Seg Neuts % (Manual) Lymphocytes % (Manual) Monocytes % (Manual) Eosinophils % (Manual) Basophils % (Manual) Nucleated RBC % Seg Neutrophils # Seg Neutrophils # Man Lymphocytes # (Manual) Monocytes # (Manual) Eosinophils # (Manual) Basophils # (Manual) PT INR Fibrinogen dRVVT Confirm Interp Factor V Activity POC ABG pH POC ABG pCO2 POC ABG pO2 ABG pO2 ABG HCO3 ABG Base Excess ABG Hemoglobin Oxyhemoglobin Sodium 146 H Potassium Chloride Carbon Dioxide BUN 51 H Creatinine Glucose 109 H POC Glucose 169 H 117 H Lactic Acid Calcium Phosphorus Magnesium Direct Bilirubin AST ALT Alkaline Phosphatase Lactate Dehydrogenase Troponin T C-Reactive Protein Total Protein Albumin Prealbumin Triglycerides Cholesterol LDL Cholesterol Direct HDL Cholesterol PTH Intact Urine pH Urine WBC (Auto) Urine Creatinine Urine Total Protein Fluid Total Protein Vancomycin Trough Rheumatoid Factor Complement C4 Miscellaneous Test Crossmatch 12/25/16 12/25/16 12/25/16 06:43 11:29 17:14 WBC RBC Hgb Hct MCV MCH MCHC RDW Plt Count Lymph % (Auto) Pope % (Auto) Lymph # Pope # Baso # Seg Neutrophils % Seg Neuts % (Manual) Lymphocytes % (Manual) Monocytes % (Manual) Eosinophils % (Manual) Basophils % (Manual) Nucleated RBC % Seg Neutrophils # Seg Neutrophils # Man Lymphocytes # (Manual) Monocytes # (Manual) Eosinophils # (Manual) Basophils # (Manual) PT INR Fibrinogen dRVVT Confirm Interp Factor V Activity POC ABG pH POC ABG pCO2 POC ABG pO2 ABG pO2 ABG HCO3 ABG Base Excess ABG Hemoglobin Oxyhemoglobin Sodium Potassium Chloride Carbon Dioxide BUN Creatinine Glucose POC Glucose 117 H 128 H 120 H Lactic Acid Calcium Phosphorus Magnesium Direct Bilirubin AST ALT Alkaline Phosphatase Lactate Dehydrogenase Troponin T C-Reactive Protein Total Protein Albumin Prealbumin Triglycerides Cholesterol LDL Cholesterol Direct HDL Cholesterol PTH Intact Urine pH Urine WBC (Auto) Urine Creatinine Urine Total Protein Fluid Total Protein Vancomycin Trough Rheumatoid Factor Complement C4 Miscellaneous Test Crossmatch 12/25/16 12/26/16 12/26/16 23:54 05:40 05:50 WBC 16.2 H RBC 2.32 L Hgb 6.2 L Hct 20.1 L MCV MCH 27 L MCHC RDW 18.6 H Plt Count Lymph % (Auto) Pope % (Auto) Lymph # Pope # Baso # Seg Neutrophils % Seg Neuts % (Manual) Lymphocytes % (Manual) Monocytes % (Manual) Eosinophils % (Manual) Basophils % (Manual) Nucleated RBC % Seg Neutrophils # Seg Neutrophils # Man Lymphocytes # (Manual) Monocytes # (Manual) Eosinophils # (Manual) Basophils # (Manual) PT INR Fibrinogen dRVVT Confirm Interp Factor V Activity POC ABG pH POC ABG pCO2 POC ABG pO2 ABG pO2 ABG HCO3 ABG Base Excess ABG Hemoglobin Oxyhemoglobin Sodium Potassium Chloride Carbon Dioxide BUN Creatinine Glucose POC Glucose 126 H 132 H Lactic Acid Calcium Phosphorus Magnesium Direct Bilirubin AST ALT Alkaline Phosphatase Lactate Dehydrogenase Troponin T C-Reactive Protein Total Protein Albumin Prealbumin Triglycerides Cholesterol LDL Cholesterol Direct HDL Cholesterol PTH Intact Urine pH Urine WBC (Auto) Urine Creatinine Urine Total Protein Fluid Total Protein Vancomycin Trough Rheumatoid Factor Complement C4 Miscellaneous Test Crossmatch 12/26/16 12/26/16 12/26/16 05:50 12:17 12:33 WBC RBC Hgb Hct MCV MCH MCHC RDW Plt Count Lymph % (Auto) Pope % (Auto) Lymph # Pope # Baso # Seg Neutrophils % Seg Neuts % (Manual) Lymphocytes % (Manual) Monocytes % (Manual) Eosinophils % (Manual) Basophils % (Manual) Nucleated RBC % Seg Neutrophils # Seg Neutrophils # Man Lymphocytes # (Manual) Monocytes # (Manual) Eosinophils # (Manual) Basophils # (Manual) PT INR Fibrinogen dRVVT Confirm Interp Factor V Activity POC ABG pH POC ABG pCO2 POC ABG pO2 ABG pO2 ABG HCO3 ABG Base Excess ABG Hemoglobin Oxyhemoglobin Sodium Potassium Chloride Carbon Dioxide BUN 73 H Creatinine 1.3 H Glucose 113 H POC Glucose 117 H Lactic Acid Calcium Phosphorus Magnesium Direct Bilirubin AST ALT Alkaline Phosphatase Lactate Dehydrogenase Troponin T C-Reactive Protein Total Protein Albumin Prealbumin Triglycerides Cholesterol LDL Cholesterol Direct HDL Cholesterol PTH Intact Urine pH Urine WBC (Auto) Urine Creatinine Urine Total Protein Fluid Total Protein Vancomycin Trough Rheumatoid Factor Complement C4 Miscellaneous Test Crossmatch See Detail 12/26/16 12/26/16 12/27/16 20:00 23:21 05:00 WBC RBC Hgb 8.4 L Hct 26.3 L D MCV MCH MCHC RDW Plt Count Lymph % (Auto) Pope % (Auto) Lymph # Pope # Baso # Seg Neutrophils % Seg Neuts % (Manual) Lymphocytes % (Manual) Monocytes % (Manual) Eosinophils % (Manual) Basophils % (Manual) Nucleated RBC % Seg Neutrophils # Seg Neutrophils # Man Lymphocytes # (Manual) Monocytes # (Manual) Eosinophils # (Manual) Basophils # (Manual) PT INR Fibrinogen dRVVT Confirm Interp Factor V Activity POC ABG pH POC ABG pCO2 POC ABG pO2 ABG pO2 ABG HCO3 ABG Base Excess ABG Hemoglobin Oxyhemoglobin Sodium Potassium Chloride Carbon Dioxide BUN 85 H Creatinine 1.6 H Glucose 118 H POC Glucose 124 H Lactic Acid Calcium Phosphorus 4.80 H Magnesium Direct Bilirubin AST ALT Alkaline Phosphatase Lactate Dehydrogenase Troponin T C-Reactive Protein Total Protein Albumin Prealbumin Triglycerides Cholesterol LDL Cholesterol Direct HDL Cholesterol PTH Intact Urine pH Urine WBC (Auto) Urine Creatinine Urine Total Protein Fluid Total Protein Vancomycin Trough Rheumatoid Factor Complement C4 Miscellaneous Test Crossmatch 12/27/16 12/27/16 12/27/16 05:00 05:35 12:24 WBC RBC Hgb 7.6 L Hct 22.8 L MCV MCH MCHC RDW Plt Count Lymph % (Auto) Pope % (Auto) Lymph # Pope # Baso # Seg Neutrophils % Seg Neuts % (Manual) Lymphocytes % (Manual) Monocytes % (Manual) Eosinophils % (Manual) Basophils % (Manual) Nucleated RBC % Seg Neutrophils # Seg Neutrophils # Man Lymphocytes # (Manual) Monocytes # (Manual) Eosinophils # (Manual) Basophils # (Manual) PT INR Fibrinogen dRVVT Confirm Interp Factor V Activity POC ABG pH POC ABG pCO2 POC ABG pO2 ABG pO2 ABG HCO3 ABG Base Excess ABG Hemoglobin Oxyhemoglobin Sodium Potassium Chloride Carbon Dioxide BUN Creatinine Glucose POC Glucose 115 H 131 H Lactic Acid Calcium Phosphorus Magnesium Direct Bilirubin AST ALT Alkaline Phosphatase Lactate Dehydrogenase Troponin T C-Reactive Protein Total Protein Albumin Prealbumin Triglycerides Cholesterol LDL Cholesterol Direct HDL Cholesterol PTH Intact Urine pH Urine WBC (Auto) Urine Creatinine Urine Total Protein Fluid Total Protein Vancomycin Trough Rheumatoid Factor Complement C4 Miscellaneous Test Crossmatch 12/27/16 12/28/16 12/28/16 17:16 00:18 04:00 WBC RBC Hgb Hct MCV MCH MCHC RDW Plt Count Lymph % (Auto) Pope % (Auto) Lymph # Pope # Baso # Seg Neutrophils % Seg Neuts % (Manual) Lymphocytes % (Manual) Monocytes % (Manual) Eosinophils % (Manual) Basophils % (Manual) Nucleated RBC % Seg Neutrophils # Seg Neutrophils # Man Lymphocytes # (Manual) Monocytes # (Manual) Eosinophils # (Manual) Basophils # (Manual) PT INR Fibrinogen dRVVT Confirm Interp Factor V Activity POC ABG pH POC ABG pCO2 POC ABG pO2 ABG pO2 ABG HCO3 ABG Base Excess ABG Hemoglobin Oxyhemoglobin Sodium Potassium 3.5 L Chloride Carbon Dioxide BUN 57 H Creatinine Glucose 118 H POC Glucose 136 H 120 H Lactic Acid Calcium 8.3 L Phosphorus Magnesium Direct Bilirubin AST ALT Alkaline Phosphatase Lactate Dehydrogenase Troponin T C-Reactive Protein Total Protein Albumin Prealbumin Triglycerides Cholesterol LDL Cholesterol Direct HDL Cholesterol PTH Intact Urine pH Urine WBC (Auto) Urine Creatinine Urine Total Protein Fluid Total Protein Vancomycin Trough Rheumatoid Factor Complement C4 Miscellaneous Test Crossmatch 12/28/16 12/28/16 12/28/16 04:00 05:11 08:30 WBC 17.0 H RBC 2.58 L Hgb 7.1 L Hct 22.0 L MCV MCH MCHC RDW 17.6 H Plt Count Lymph % (Auto) 12.2 L Pope % (Auto) Lymph # Pope # 1.1 H Baso # Seg Neutrophils % 80.5 H Seg Neuts % (Manual) Lymphocytes % (Manual) Monocytes % (Manual) Eosinophils % (Manual) Basophils % (Manual) Nucleated RBC % Seg Neutrophils # 13.7 H Seg Neutrophils # Man Lymphocytes # (Manual) Monocytes # (Manual) Eosinophils # (Manual) Basophils # (Manual) PT 16.1 H INR 1.23 H Fibrinogen dRVVT Confirm Interp Factor V Activity POC ABG pH POC ABG pCO2 POC ABG pO2 ABG pO2 ABG HCO3 ABG Base Excess ABG Hemoglobin Oxyhemoglobin Sodium Potassium Chloride Carbon Dioxide BUN Creatinine Glucose POC Glucose 122 H Lactic Acid Calcium Phosphorus Magnesium Direct Bilirubin AST ALT Alkaline Phosphatase Lactate Dehydrogenase Troponin T C-Reactive Protein Total Protein Albumin Prealbumin Triglycerides Cholesterol LDL Cholesterol Direct HDL Cholesterol PTH Intact Urine pH Urine WBC (Auto) Urine Creatinine Urine Total Protein Fluid Total Protein Vancomycin Trough Rheumatoid Factor Complement C4 Miscellaneous Test Crossmatch 12/28/16 12/28/16 12/28/16 12:27 16:32 23:46 WBC RBC Hgb Hct MCV MCH MCHC RDW Plt Count Lymph % (Auto) Pope % (Auto) Lymph # Pope # Baso # Seg Neutrophils % Seg Neuts % (Manual) Lymphocytes % (Manual) Monocytes % (Manual) Eosinophils % (Manual) Basophils % (Manual) Nucleated RBC % Seg Neutrophils # Seg Neutrophils # Man Lymphocytes # (Manual) Monocytes # (Manual) Eosinophils # (Manual) Basophils # (Manual) PT INR Fibrinogen dRVVT Confirm Interp Factor V Activity POC ABG pH POC ABG pCO2 POC ABG pO2 ABG pO2 ABG HCO3 ABG Base Excess ABG Hemoglobin Oxyhemoglobin Sodium Potassium Chloride Carbon Dioxide BUN Creatinine Glucose POC Glucose 127 H 117 H 108 H Lactic Acid Calcium Phosphorus Magnesium Direct Bilirubin AST ALT Alkaline Phosphatase Lactate Dehydrogenase Troponin T C-Reactive Protein Total Protein Albumin Prealbumin Triglycerides Cholesterol LDL Cholesterol Direct HDL Cholesterol PTH Intact Urine pH Urine WBC (Auto) Urine Creatinine Urine Total Protein Fluid Total Protein Vancomycin Trough Rheumatoid Factor Complement C4 Miscellaneous Test Crossmatch 12/29/16 12/29/16 12/29/16 05:15 05:15 05:32 WBC RBC Hgb Hct MCV MCH MCHC RDW Plt Count Lymph % (Auto) Pope % (Auto) Lymph # Pope # Baso # Seg Neutrophils % Seg Neuts % (Manual) Lymphocytes % (Manual) Monocytes % (Manual) Eosinophils % (Manual) Basophils % (Manual) Nucleated RBC % Seg Neutrophils # Seg Neutrophils # Man Lymphocytes # (Manual) Monocytes # (Manual) Eosinophils # (Manual) Basophils # (Manual) PT INR Fibrinogen dRVVT Confirm Interp Factor V Activity POC ABG pH POC ABG pCO2 POC ABG pO2 ABG pO2 ABG HCO3 ABG Base Excess ABG Hemoglobin Oxyhemoglobin Sodium Potassium Chloride Carbon Dioxide BUN 74 H Creatinine 1.6 H Glucose 111 H POC Glucose 123 H Lactic Acid Calcium Phosphorus Magnesium Direct Bilirubin AST ALT Alkaline Phosphatase Lactate Dehydrogenase Troponin T C-Reactive Protein Total Protein Albumin Prealbumin 0.110 L Triglycerides Cholesterol LDL Cholesterol Direct HDL Cholesterol PTH Intact Urine pH Urine WBC (Auto) Urine Creatinine Urine Total Protein Fluid Total Protein Vancomycin Trough Rheumatoid Factor Complement C4 Miscellaneous Test Crossmatch 12/29/16 12/29/16 12/29/16 11:43 13:45 14:00 WBC 13.8 H RBC 2.26 L Hgb 6.3 L Hct 20.4 L MCV MCH MCHC RDW 18.3 H Plt Count Lymph % (Auto) Pope % (Auto) Lymph # Pope # 0.9 H Baso # Seg Neutrophils % 78.6 H Seg Neuts % (Manual) Lymphocytes % (Manual) Monocytes % (Manual) Eosinophils % (Manual) Basophils % (Manual) Nucleated RBC % Seg Neutrophils # 10.8 H Seg Neutrophils # Man Lymphocytes # (Manual) Monocytes # (Manual) Eosinophils # (Manual) Basophils # (Manual) PT INR Fibrinogen dRVVT Confirm Interp Factor V Activity POC ABG pH POC ABG pCO2 POC ABG pO2 ABG pO2 ABG HCO3 ABG Base Excess ABG Hemoglobin Oxyhemoglobin Sodium Potassium Chloride Carbon Dioxide BUN Creatinine Glucose POC Glucose 133 H Lactic Acid Calcium Phosphorus Magnesium Direct Bilirubin AST ALT Alkaline Phosphatase Lactate Dehydrogenase Troponin T C-Reactive Protein Total Protein Albumin Prealbumin Triglycerides Cholesterol LDL Cholesterol Direct HDL Cholesterol PTH Intact Urine pH Urine WBC (Auto) Urine Creatinine Urine Total Protein Fluid Total Protein Vancomycin Trough Rheumatoid Factor Complement C4 Miscellaneous Test Crossmatch See Detail 12/29/16 12/29/16 12/29/16 17:03 23:15 23:22 WBC RBC Hgb 7.3 L Hct 22.3 L MCV MCH MCHC RDW Plt Count Lymph % (Auto) Pope % (Auto) Lymph # Pope # Baso # Seg Neutrophils % Seg Neuts % (Manual) Lymphocytes % (Manual) Monocytes % (Manual) Eosinophils % (Manual) Basophils % (Manual) Nucleated RBC % Seg Neutrophils # Seg Neutrophils # Man Lymphocytes # (Manual) Monocytes # (Manual) Eosinophils # (Manual) Basophils # (Manual) PT INR Fibrinogen dRVVT Confirm Interp Factor V Activity POC ABG pH POC ABG pCO2 POC ABG pO2 ABG pO2 ABG HCO3 ABG Base Excess ABG Hemoglobin Oxyhemoglobin Sodium Potassium Chloride Carbon Dioxide BUN Creatinine Glucose POC Glucose 139 H 120 H Lactic Acid Calcium Phosphorus Magnesium Direct Bilirubin AST ALT Alkaline Phosphatase Lactate Dehydrogenase Troponin T C-Reactive Protein Total Protein Albumin Prealbumin Triglycerides Cholesterol LDL Cholesterol Direct HDL Cholesterol PTH Intact Urine pH Urine WBC (Auto) Urine Creatinine Urine Total Protein Fluid Total Protein Vancomycin Trough Rheumatoid Factor Complement C4 Miscellaneous Test Crossmatch 12/30/16 12/30/16 12/30/16 04:20 04:20 05:43 WBC 15.6 H RBC 2.81 L Hgb 8.0 L Hct 24.0 L MCV MCH MCHC RDW 16.9 H Plt Count Lymph % (Auto) Pope % (Auto) Lymph # Pope # 1.0 H Baso # Seg Neutrophils % 76.2 H Seg Neuts % (Manual) Lymphocytes % (Manual) Monocytes % (Manual) Eosinophils % (Manual) Basophils % (Manual) Nucleated RBC % Seg Neutrophils # 11.9 H Seg Neutrophils # Man Lymphocytes # (Manual) Monocytes # (Manual) Eosinophils # (Manual) Basophils # (Manual) PT INR Fibrinogen dRVVT Confirm Interp Factor V Activity POC ABG pH POC ABG pCO2 POC ABG pO2 ABG pO2 ABG HCO3 ABG Base Excess ABG Hemoglobin Oxyhemoglobin Sodium Potassium Chloride Carbon Dioxide BUN 87 H Creatinine 1.8 H Glucose 119 H POC Glucose 115 H Lactic Acid Calcium Phosphorus Magnesium Direct Bilirubin AST ALT Alkaline Phosphatase Lactate Dehydrogenase Troponin T C-Reactive Protein Total Protein Albumin Prealbumin Triglycerides Cholesterol LDL Cholesterol Direct HDL Cholesterol PTH Intact Urine pH Urine WBC (Auto) Urine Creatinine Urine Total Protein Fluid Total Protein Vancomycin Trough Rheumatoid Factor Complement C4 Miscellaneous Test Crossmatch 12/30/16 12/30/16 12/31/16 17:27 23:21 04:00 WBC RBC Hgb Hct MCV MCH MCHC RDW Plt Count Lymph % (Auto) Pope % (Auto) Lymph # Pope # Baso # Seg Neutrophils % Seg Neuts % (Manual) Lymphocytes % (Manual) Monocytes % (Manual) Eosinophils % (Manual) Basophils % (Manual) Nucleated RBC % Seg Neutrophils # Seg Neutrophils # Man Lymphocytes # (Manual) Monocytes # (Manual) Eosinophils # (Manual) Basophils # (Manual) PT INR Fibrinogen dRVVT Confirm Interp Factor V Activity POC ABG pH POC ABG pCO2 POC ABG pO2 ABG pO2 ABG HCO3 ABG Base Excess ABG Hemoglobin Oxyhemoglobin Sodium Potassium Chloride Carbon Dioxide BUN 59 H Creatinine Glucose 298 H POC Glucose 144 H 125 H Lactic Acid Calcium Phosphorus Magnesium Direct Bilirubin AST ALT Alkaline Phosphatase Lactate Dehydrogenase Troponin T C-Reactive Protein Total Protein Albumin Prealbumin Triglycerides Cholesterol LDL Cholesterol Direct HDL Cholesterol PTH Intact Urine pH Urine WBC (Auto) Urine Creatinine Urine Total Protein Fluid Total Protein Vancomycin Trough Rheumatoid Factor Complement C4 Miscellaneous Test Crossmatch 12/31/16 12/31/16 12/31/16 05:11 12:18 18:17 WBC RBC Hgb Hct MCV MCH MCHC RDW Plt Count Lymph % (Auto) Pope % (Auto) Lymph # Pope # Baso # Seg Neutrophils % Seg Neuts % (Manual) Lymphocytes % (Manual) Monocytes % (Manual) Eosinophils % (Manual) Basophils % (Manual) Nucleated RBC % Seg Neutrophils # Seg Neutrophils # Man Lymphocytes # (Manual) Monocytes # (Manual) Eosinophils # (Manual) Basophils # (Manual) PT INR Fibrinogen dRVVT Confirm Interp Factor V Activity POC ABG pH POC ABG pCO2 POC ABG pO2 ABG pO2 ABG HCO3 ABG Base Excess ABG Hemoglobin Oxyhemoglobin Sodium Potassium Chloride Carbon Dioxide BUN Creatinine Glucose POC Glucose 167 H 125 H 133 H Lactic Acid Calcium Phosphorus Magnesium Direct Bilirubin AST ALT Alkaline Phosphatase Lactate Dehydrogenase Troponin T C-Reactive Protein Total Protein Albumin Prealbumin Triglycerides Cholesterol LDL Cholesterol Direct HDL Cholesterol PTH Intact Urine pH Urine WBC (Auto) Urine Creatinine Urine Total Protein Fluid Total Protein Vancomycin Trough Rheumatoid Factor Complement C4 Miscellaneous Test Crossmatch 12/31/16 01/01/17 01/01/17 23:55 05:00 05:12 WBC RBC Hgb Hct MCV MCH MCHC RDW Plt Count Lymph % (Auto) Pope % (Auto) Lymph # Pope # Baso # Seg Neutrophils % Seg Neuts % (Manual) Lymphocytes % (Manual) Monocytes % (Manual) Eosinophils % (Manual) Basophils % (Manual) Nucleated RBC % Seg Neutrophils # Seg Neutrophils # Man Lymphocytes # (Manual) Monocytes # (Manual) Eosinophils # (Manual) Basophils # (Manual) PT INR Fibrinogen dRVVT Confirm Interp Factor V Activity POC ABG pH POC ABG pCO2 POC ABG pO2 ABG pO2 ABG HCO3 ABG Base Excess ABG Hemoglobin Oxyhemoglobin Sodium Potassium Chloride Carbon Dioxide BUN 76 H Creatinine 1.5 H Glucose 109 H POC Glucose 129 H 129 H Lactic Acid Calcium Phosphorus Magnesium Direct Bilirubin AST ALT Alkaline Phosphatase 536 H Lactate Dehydrogenase Troponin T C-Reactive Protein Total Protein Albumin 1.5 L Prealbumin Triglycerides Cholesterol LDL Cholesterol Direct HDL Cholesterol PTH Intact Urine pH Urine WBC (Auto) Urine Creatinine Urine Total Protein Fluid Total Protein Vancomycin Trough Rheumatoid Factor Complement C4 Miscellaneous Test Crossmatch 01/01/17 01/01/17 01/01/17 12:25 17:01 23:32 WBC RBC Hgb Hct MCV MCH MCHC RDW Plt Count Lymph % (Auto) Pope % (Auto) Lymph # Pope # Baso # Seg Neutrophils % Seg Neuts % (Manual) Lymphocytes % (Manual) Monocytes % (Manual) Eosinophils % (Manual) Basophils % (Manual) Nucleated RBC % Seg Neutrophils # Seg Neutrophils # Man Lymphocytes # (Manual) Monocytes # (Manual) Eosinophils # (Manual) Basophils # (Manual) PT INR Fibrinogen dRVVT Confirm Interp Factor V Activity POC ABG pH POC ABG pCO2 POC ABG pO2 ABG pO2 ABG HCO3 ABG Base Excess ABG Hemoglobin Oxyhemoglobin Sodium Potassium Chloride Carbon Dioxide BUN Creatinine Glucose POC Glucose 140 H 142 H 112 H Lactic Acid Calcium Phosphorus Magnesium Direct Bilirubin AST ALT Alkaline Phosphatase Lactate Dehydrogenase Troponin T C-Reactive Protein Total Protein Albumin Prealbumin Triglycerides Cholesterol LDL Cholesterol Direct HDL Cholesterol PTH Intact Urine pH Urine WBC (Auto) Urine Creatinine Urine Total Protein Fluid Total Protein Vancomycin Trough Rheumatoid Factor Complement C4 Miscellaneous Test Crossmatch 01/02/17 01/02/17 01/02/17 04:56 06:00 11:37 WBC RBC Hgb Hct MCV MCH MCHC RDW Plt Count Lymph % (Auto) Pope % (Auto) Lymph # Butch # [place] # Seg Neutrophils % Seg Neuts % (Manual) Lymphocytes % (Manual) Monocytes % (Manual) Eosinophils % (Manual) Basophils % (Manual) Nucleated RBC % Seg Neutrophils # Seg Neutrophils # Man Lymphocytes # (Manual) Monocytes # (Manual) Eosinophils # (Manual) Basophils # (Manual) PT INR Fibrinogen dRVVT Confirm Interp Factor V Activity POC ABG pH POC ABG pCO2 POC ABG pO2 ABG pO2 ABG HCO3 ABG Base Excess ABG Hemoglobin Oxyhemoglobin Sodium Potassium Chloride Carbon Dioxide BUN 88 H Creatinine 1.7 H Glucose 113 H POC Glucose 136 H 200 H Lactic Acid Calcium Phosphorus Magnesium Direct Bilirubin AST ALT Alkaline Phosphatase Lactate Dehydrogenase Troponin T C-Reactive Protein Total Protein Albumin Prealbumin Triglycerides Cholesterol LDL Cholesterol Direct HDL Cholesterol PTH Intact Urine pH Urine WBC (Auto) Urine Creatinine Urine Total Protein Fluid Total Protein Vancomycin Trough Rheumatoid Factor Complement C4 Miscellaneous Test Crossmatch 01/02/17 01/02/17 01/03/17 17:42 22:52 04:54 WBC RBC Hgb Hct MCV MCH MCHC RDW Plt Count Lymph % (Auto) Pope % (Auto) Lymph # Pope # Baso # Seg Neutrophils % Seg Neuts % (Manual) Lymphocytes % (Manual) Monocytes % (Manual) Eosinophils % (Manual) Basophils % (Manual) Nucleated RBC % Seg Neutrophils # Seg Neutrophils # Man Lymphocytes # (Manual) Monocytes # (Manual) Eosinophils # (Manual) Basophils # (Manual) PT INR Fibrinogen dRVVT Confirm Interp Factor V Activity POC ABG pH POC ABG pCO2 POC ABG pO2 ABG pO2 ABG HCO3 ABG Base Excess ABG Hemoglobin Oxyhemoglobin Sodium Potassium Chloride Carbon Dioxide BUN Creatinine Glucose POC Glucose 112 H 133 H 111 H Lactic Acid Calcium Phosphorus Magnesium Direct Bilirubin AST ALT Alkaline Phosphatase Lactate Dehydrogenase Troponin T C-Reactive Protein Total Protein Albumin Prealbumin Triglycerides Cholesterol LDL Cholesterol Direct HDL Cholesterol PTH Intact Urine pH Urine WBC (Auto) Urine Creatinine Urine Total Protein Fluid Total Protein Vancomycin Trough Rheumatoid Factor Complement C4 Miscellaneous Test Crossmatch 01/03/17 01/03/17 01/03/17 05:00 05:00 14:02 WBC 11.2 H RBC 2.56 L Hgb 7.2 L Hct 22.3 L MCV MCH MCHC RDW 17.3 H Plt Count Lymph % (Auto) Pope % (Auto) 10.0 H Lymph # Pope # 1.1 H Baso # Seg Neutrophils % 70.5 H Seg Neuts % (Manual) Lymphocytes % (Manual) Monocytes % (Manual) Eosinophils % (Manual) Basophils % (Manual) Nucleated RBC % Seg Neutrophils # 7.9 H Seg Neutrophils # Man Lymphocytes # (Manual) Monocytes # (Manual) Eosinophils # (Manual) Basophils # (Manual) PT INR Fibrinogen dRVVT Confirm Interp Factor V Activity POC ABG pH POC ABG pCO2 POC ABG pO2 ABG pO2 ABG HCO3 ABG Base Excess ABG Hemoglobin Oxyhemoglobin Sodium Potassium Chloride Carbon Dioxide BUN 60 H Creatinine 1.3 H Glucose 110 H POC Glucose 119 H Lactic Acid Calcium Phosphorus Magnesium Direct Bilirubin AST ALT Alkaline Phosphatase Lactate Dehydrogenase Troponin T C-Reactive Protein Total Protein Albumin Prealbumin Triglycerides Cholesterol LDL Cholesterol Direct HDL Cholesterol PTH Intact Urine pH Urine WBC (Auto) Urine Creatinine Urine Total Protein Fluid Total Protein Vancomycin Trough Rheumatoid Factor Complement C4 Miscellaneous Test Crossmatch 01/03/17 01/03/17 01/04/17 18:13 23:40 05:57 WBC RBC Hgb Hct MCV MCH MCHC RDW Plt Count Lymph % (Auto) Pope % (Auto) Lymph # Pope # Baso # Seg Neutrophils % Seg Neuts % (Manual) Lymphocytes % (Manual) Monocytes % (Manual) Eosinophils % (Manual) Basophils % (Manual) Nucleated RBC % Seg Neutrophils # Seg Neutrophils # Man Lymphocytes # (Manual) Monocytes # (Manual) Eosinophils # (Manual) Basophils # (Manual) PT INR Fibrinogen dRVVT Confirm Interp Factor V Activity POC ABG pH POC ABG pCO2 POC ABG pO2 ABG pO2 ABG HCO3 ABG Base Excess ABG Hemoglobin Oxyhemoglobin Sodium Potassium Chloride Carbon Dioxide BUN Creatinine Glucose POC Glucose 107 H 129 H 111 H Lactic Acid Calcium Phosphorus Magnesium Direct Bilirubin AST ALT Alkaline Phosphatase Lactate Dehydrogenase Troponin T C-Reactive Protein Total Protein Albumin Prealbumin Triglycerides Cholesterol LDL Cholesterol Direct HDL Cholesterol PTH Intact Urine pH Urine WBC (Auto) Urine Creatinine Urine Total Protein Fluid Total Protein Vancomycin Trough Rheumatoid Factor Complement C4 Miscellaneous Test Crossmatch 01/04/17 01/04/17 01/04/17 12:46 15:27 17:11 WBC RBC Hgb Hct MCV MCH MCHC RDW Plt Count Lymph % (Auto) Pope % (Auto) Lymph # Pope # Baso # Seg Neutrophils % Seg Neuts % (Manual) Lymphocytes % (Manual) Monocytes % (Manual) Eosinophils % (Manual) Basophils % (Manual) Nucleated RBC % Seg Neutrophils # Seg Neutrophils # Man Lymphocytes # (Manual) Monocytes # (Manual) Eosinophils # (Manual) Basophils # (Manual) PT INR Fibrinogen dRVVT Confirm Interp Factor V Activity POC ABG pH POC ABG pCO2 POC ABG pO2 ABG pO2 ABG HCO3 ABG Base Excess ABG Hemoglobin Oxyhemoglobin Sodium Potassium Chloride Carbon Dioxide BUN 43 H Creatinine Glucose 124 H POC Glucose 159 H 125 H Lactic Acid Calcium 8.0 L Phosphorus 2.10 L Magnesium Direct Bilirubin AST ALT Alkaline Phosphatase Lactate Dehydrogenase Troponin T C-Reactive Protein Total Protein Albumin Prealbumin Triglycerides Cholesterol LDL Cholesterol Direct HDL Cholesterol PTH Intact Urine pH Urine WBC (Auto) Urine Creatinine Urine Total Protein Fluid Total Protein Vancomycin Trough Rheumatoid Factor Complement C4 Miscellaneous Test Crossmatch 01/04/17 01/05/17 01/05/17 23:31 04:00 05:46 WBC RBC Hgb Hct MCV MCH MCHC RDW Plt Count Lymph % (Auto) Pope % (Auto) Lymph # Pope # Baso # Seg Neutrophils % Seg Neuts % (Manual) Lymphocytes % (Manual) Monocytes % (Manual) Eosinophils % (Manual) Basophils % (Manual) Nucleated RBC % Seg Neutrophils # Seg Neutrophils # Man Lymphocytes # (Manual) Monocytes # (Manual) Eosinophils # (Manual) Basophils # (Manual) PT INR Fibrinogen dRVVT Confirm Interp Factor V Activity POC ABG pH POC ABG pCO2 POC ABG pO2 ABG pO2 ABG HCO3 ABG Base Excess ABG Hemoglobin Oxyhemoglobin Sodium Potassium Chloride Carbon Dioxide BUN 52 H Creatinine 1.3 H Glucose 113 H POC Glucose 123 H 118 H Lactic Acid Calcium Phosphorus 2.40 L Magnesium Direct Bilirubin AST ALT Alkaline Phosphatase Lactate Dehydrogenase Troponin T C-Reactive Protein Total Protein Albumin Prealbumin Triglycerides Cholesterol LDL Cholesterol Direct HDL Cholesterol PTH Intact Urine pH Urine WBC (Auto) Urine Creatinine Urine Total Protein Fluid Total Protein Vancomycin Trough Rheumatoid Factor Complement C4 Miscellaneous Test Crossmatch 01/05/17 01/05/17 01/05/17 11:41 17:48 23:27 WBC RBC Hgb Hct MCV MCH MCHC RDW Plt Count Lymph % (Auto) Pope % (Auto) Lymph # Pope # Baso # Seg Neutrophils % Seg Neuts % (Manual) Lymphocytes % (Manual) Monocytes % (Manual) Eosinophils % (Manual) Basophils % (Manual) Nucleated RBC % Seg Neutrophils # Seg Neutrophils # Man Lymphocytes # (Manual) Monocytes # (Manual) Eosinophils # (Manual) Basophils # (Manual) PT INR Fibrinogen dRVVT Confirm Interp Factor V Activity POC ABG pH POC ABG pCO2 POC ABG pO2 ABG pO2 ABG HCO3 ABG Base Excess ABG Hemoglobin Oxyhemoglobin Sodium Potassium Chloride Carbon Dioxide BUN Creatinine Glucose POC Glucose 163 H 142 H 155 H Lactic Acid Calcium Phosphorus Magnesium Direct Bilirubin AST ALT Alkaline Phosphatase Lactate Dehydrogenase Troponin T C-Reactive Protein Total Protein Albumin Prealbumin Triglycerides Cholesterol LDL Cholesterol Direct HDL Cholesterol PTH Intact Urine pH Urine WBC (Auto) Urine Creatinine Urine Total Protein Fluid Total Protein Vancomycin Trough Rheumatoid Factor Complement C4 Miscellaneous Test Crossmatch 01/06/17 01/06/17 01/06/17 05:20 07:35 11:18 WBC RBC Hgb Hct MCV MCH MCHC RDW Plt Count Lymph % (Auto) Pope % (Auto) Lymph # Pope # Baso # Seg Neutrophils % Seg Neuts % (Manual) Lymphocytes % (Manual) Monocytes % (Manual) Eosinophils % (Manual) Basophils % (Manual) Nucleated RBC % Seg Neutrophils # Seg Neutrophils # Man Lymphocytes # (Manual) Monocytes # (Manual) Eosinophils # (Manual) Basophils # (Manual) PT INR Fibrinogen dRVVT Confirm Interp Factor V Activity POC ABG pH POC ABG pCO2 POC ABG pO2 ABG pO2 ABG HCO3 ABG Base Excess ABG Hemoglobin Oxyhemoglobin Sodium Potassium Chloride Carbon Dioxide BUN 74 H Creatinine 1.6 H Glucose 135 H POC Glucose 108 H 149 H Lactic Acid Calcium Phosphorus Magnesium Direct Bilirubin AST ALT Alkaline Phosphatase Lactate Dehydrogenase Troponin T C-Reactive Protein Total Protein Albumin Prealbumin Triglycerides Cholesterol LDL Cholesterol Direct HDL Cholesterol PTH Intact Urine pH Urine WBC (Auto) Urine Creatinine Urine Total Protein Fluid Total Protein Vancomycin Trough Rheumatoid Factor Complement C4 Miscellaneous Test Crossmatch 01/06/17 01/07/17 01/07/17 17: 00:23 05:31 WBC RBC Hgb Hct MCV MCH MCHC RDW Plt Count Lymph % (Auto) Pope % (Auto) Lymph # Pope # Baso # Seg Neutrophils % Seg Neuts % (Manual) Lymphocytes % (Manual) Monocytes % (Manual) Eosinophils % (Manual) Basophils % (Manual) Nucleated RBC % Seg Neutrophils # Seg Neutrophils # Man Lymphocytes # (Manual) Monocytes # (Manual) Eosinophils # (Manual) Basophils # (Manual) PT INR Fibrinogen dRVVT Confirm Interp Factor V Activity POC ABG pH POC ABG pCO2 POC ABG pO2 ABG pO2 ABG HCO3 ABG Base Excess ABG Hemoglobin Oxyhemoglobin Sodium Potassium Chloride Carbon Dioxide BUN Creatinine Glucose POC Glucose 146 H 165 H 153 H Lactic Acid Calcium Phosphorus Magnesium Direct Bilirubin AST ALT Alkaline Phosphatase Lactate Dehydrogenase Troponin T C-Reactive Protein Total Protein Albumin Prealbumin Triglycerides Cholesterol LDL Cholesterol Direct HDL Cholesterol PTH Intact Urine pH Urine WBC (Auto) Urine Creatinine Urine Total Protein Fluid Total Protein Vancomycin Trough Rheumatoid Factor Complement C4 Miscellaneous Test Crossmatch 01/07/17 01/07/17 01/07/17 06:00 11:39 17:11 WBC RBC Hgb Hct MCV MCH MCHC RDW Plt Count Lymph % (Auto) Pope % (Auto) Lymph # Pope # Baso # Seg Neutrophils % Seg Neuts % (Manual) Lymphocytes % (Manual) Monocytes % (Manual) Eosinophils % (Manual) Basophils % (Manual) Nucleated RBC % Seg Neutrophils # Seg Neutrophils # Man Lymphocytes # (Manual) Monocytes # (Manual) Eosinophils # (Manual) Basophils # (Manual) PT INR Fibrinogen dRVVT Confirm Interp Factor V Activity POC ABG pH POC ABG pCO2 POC ABG pO2 ABG pO2 ABG HCO3 ABG Base Excess ABG Hemoglobin Oxyhemoglobin Sodium Potassium Chloride Carbon Dioxide BUN 42 H Creatinine Glucose 175 H POC Glucose 163 H 163 H Lactic Acid Calcium Phosphorus 2.40 L D Magnesium Direct Bilirubin AST ALT Alkaline Phosphatase Lactate Dehydrogenase Troponin T C-Reactive Protein Total Protein Albumin Prealbumin Triglycerides Cholesterol LDL Cholesterol Direct HDL Cholesterol PTH Intact Urine pH Urine WBC (Auto) Urine Creatinine Urine Total Protein Fluid Total Protein Vancomycin Trough Rheumatoid Factor Complement C4 Miscellaneous Test Crossmatch 01/07/17 01/08/17 01/08/17 23:40 05:00 05:00 WBC 27.4 H RBC 2.27 L Hgb 6.1 L Hct 20.4 L MCV MCH 27 L MCHC RDW 17.8 H Plt Count Lymph % (Auto) Pope % (Auto) Lymph # Pope # Baso # Seg Neutrophils % Seg Neuts % (Manual) Lymphocytes % (Manual) Monocytes % (Manual) Eosinophils % (Manual) Basophils % (Manual) Nucleated RBC % Seg Neutrophils # Seg Neutrophils # Man Lymphocytes # (Manual) Monocytes # (Manual) Eosinophils # (Manual) Basophils # (Manual) PT INR Fibrinogen dRVVT Confirm Interp Factor V Activity POC ABG pH POC ABG pCO2 POC ABG pO2 ABG pO2 ABG HCO3 ABG Base Excess ABG Hemoglobin Oxyhemoglobin Sodium Potassium Chloride Carbon Dioxide 16 L D BUN 62 H Creatinine 1.6 H D Glucose 103 H POC Glucose 135 H Lactic Acid Calcium Phosphorus Magnesium Direct Bilirubin AST ALT Alkaline Phosphatase Lactate Dehydrogenase Troponin T C-Reactive Protein Total Protein Albumin Prealbumin Triglycerides Cholesterol LDL Cholesterol Direct HDL Cholesterol PTH Intact Urine pH Urine WBC (Auto) Urine Creatinine Urine Total Protein Fluid Total Protein Vancomycin Trough Rheumatoid Factor Complement C4 Miscellaneous Test Crossmatch 01/08/17 01/08/17 01/08/17 05:25 10:37 10:37 WBC RBC Hgb Hct MCV MCH MCHC RDW Plt Count Lymph % (Auto) Pope % (Auto) Lymph # Pope # Baso # Seg Neutrophils % Seg Neuts % (Manual) Lymphocytes % (Manual) Monocytes % (Manual) Eosinophils % (Manual) Basophils % (Manual) Nucleated RBC % Seg Neutrophils # Seg Neutrophils # Man Lymphocytes # (Manual) Monocytes # (Manual) Eosinophils # (Manual) Basophils # (Manual) PT INR Fibrinogen dRVVT Confirm Interp Factor V Activity POC ABG pH POC ABG pCO2 POC ABG pO2 ABG pO2 ABG HCO3 ABG Base Excess ABG Hemoglobin Oxyhemoglobin Sodium Potassium Chloride Carbon Dioxide BUN Creatinine Glucose POC Glucose 106 H Lactic Acid Calcium Phosphorus Magnesium Direct Bilirubin AST ALT Alkaline Phosphatase Lactate Dehydrogenase Troponin T C-Reactive Protein 24.40 H Total Protein Albumin Prealbumin Triglycerides Cholesterol LDL Cholesterol Direct HDL Cholesterol PTH Intact Urine pH Urine WBC (Auto) Urine Creatinine Urine Total Protein Fluid Total Protein Vancomycin Trough Rheumatoid Factor Complement C4 Miscellaneous Test Crossmatch See Detail 01/08/17 01/08/17 01/08/17 10:37 11:33 15:15 WBC RBC Hgb Hct MCV MCH MCHC RDW Plt Count Lymph % (Auto) Pope % (Auto) Lymph # Pope # Baso # Seg Neutrophils % Seg Neuts % (Manual) Lymphocytes % (Manual) Monocytes % (Manual) Eosinophils % (Manual) Basophils % (Manual) Nucleated RBC % Seg Neutrophils # Seg Neutrophils # Man Lymphocytes # (Manual) Monocytes # (Manual) Eosinophils # (Manual) Basophils # (Manual) PT INR Fibrinogen dRVVT Confirm Interp Factor V Activity POC ABG pH POC ABG pCO2 POC ABG pO2 ABG pO2 ABG HCO3 ABG Base Excess ABG Hemoglobin Oxyhemoglobin Sodium Potassium Chloride Carbon Dioxide BUN Creatinine Glucose POC Glucose 157 H Lactic Acid 9.70 H* 9.10 H* Calcium Phosphorus Magnesium Direct Bilirubin AST ALT Alkaline Phosphatase Lactate Dehydrogenase Troponin T C-Reactive Protein Total Protein Albumin Prealbumin Triglycerides Cholesterol LDL Cholesterol Direct HDL Cholesterol PTH Intact Urine pH Urine WBC (Auto) Urine Creatinine Urine Total Protein Fluid Total Protein Vancomycin Trough Rheumatoid Factor Complement C4 Miscellaneous Test Crossmatch 01/08/17 01/08/17 01/09/17 17:19 23:12 04:40 WBC RBC Hgb Hct MCV MCH MCHC RDW Plt Count Lymph % (Auto) Pope % (Auto) Lymph # Pope # Baso # Seg Neutrophils % Seg Neuts % (Manual) Lymphocytes % (Manual) Monocytes % (Manual) Eosinophils % (Manual) Basophils % (Manual) Nucleated RBC % Seg Neutrophils # Seg Neutrophils # Man Lymphocytes # (Manual) Monocytes # (Manual) Eosinophils # (Manual) Basophils # (Manual) PT INR Fibrinogen dRVVT Confirm Interp Factor V Activity POC ABG pH POC ABG pCO2 POC ABG pO2 ABG pO2 ABG HCO3 ABG Base Excess ABG Hemoglobin Oxyhemoglobin Sodium 147 H Potassium Chloride Carbon Dioxide BUN 82 H Creatinine 1.8 H Glucose 137 H POC Glucose 164 H 157 H Lactic Acid Calcium Phosphorus Magnesium Direct Bilirubin AST ALT Alkaline Phosphatase Lactate Dehydrogenase Troponin T C-Reactive Protein Total Protein Albumin Prealbumin Triglycerides Cholesterol LDL Cholesterol Direct HDL Cholesterol PTH Intact Urine pH Urine WBC (Auto) Urine Creatinine Urine Total Protein Fluid Total Protein Vancomycin Trough Rheumatoid Factor Complement C4 Miscellaneous Test Crossmatch 01/09/17 01/09/17 01/09/17 05:42 08:22 10:57 WBC RBC Hgb Hct MCV MCH MCHC RDW Plt Count Lymph % (Auto) Pope % (Auto) Lymph # Pope # Baso # Seg Neutrophils % Seg Neuts % (Manual) Lymphocytes % (Manual) Monocytes % (Manual) Eosinophils % (Manual) Basophils % (Manual) Nucleated RBC % Seg Neutrophils # Seg Neutrophils # Man Lymphocytes # (Manual) Monocytes # (Manual) Eosinophils # (Manual) Basophils # (Manual) PT INR Fibrinogen dRVVT Confirm Interp Factor V Activity POC ABG pH POC ABG pCO2 POC ABG pO2 ABG pO2 ABG HCO3 ABG Base Excess ABG Hemoglobin Oxyhemoglobin Sodium Potassium Chloride Carbon Dioxide BUN Creatinine Glucose POC Glucose 156 H 122 H Lactic Acid 2.30 H* Calcium Phosphorus Magnesium Direct Bilirubin AST ALT Alkaline Phosphatase Lactate Dehydrogenase Troponin T C-Reactive Protein Total Protein Albumin Prealbumin Triglycerides Cholesterol LDL Cholesterol Direct HDL Cholesterol PTH Intact Urine pH Urine WBC (Auto) Urine Creatinine Urine Total Protein Fluid Total Protein Vancomycin Trough Rheumatoid Factor Complement C4 Miscellaneous Test Crossmatch 01/09/17 01/09/17 01/09/17 13:30 17:14 18:45 WBC RBC Hgb Hct MCV MCH MCHC RDW Plt Count Lymph % (Auto) Pope % (Auto) Lymph # Pope # Baso # Seg Neutrophils % Seg Neuts % (Manual) Lymphocytes % (Manual) Monocytes % (Manual) Eosinophils % (Manual) Basophils % (Manual) Nucleated RBC % Seg Neutrophils # Seg Neutrophils # Man Lymphocytes # (Manual) Monocytes # (Manual) Eosinophils # (Manual) Basophils # (Manual) PT INR Fibrinogen dRVVT Confirm Interp Factor V Activity POC ABG pH POC ABG pCO2 POC ABG pO2 ABG pO2 ABG HCO3 ABG Base Excess ABG Hemoglobin Oxyhemoglobin Sodium Potassium Chloride Carbon Dioxide BUN Creatinine Glucose POC Glucose 127 H Lactic Acid Calcium Phosphorus Magnesium Direct Bilirubin AST ALT Alkaline Phosphatase Lactate Dehydrogenase Troponin T C-Reactive Protein 24.70 H Total Protein Albumin Prealbumin Triglycerides Cholesterol LDL Cholesterol Direct HDL Cholesterol PTH Intact Urine pH Urine WBC (Auto) Urine Creatinine Urine Total Protein Fluid Total Protein Vancomycin Trough Rheumatoid Factor Complement C4 Miscellaneous Test Flexitest 1 H Crossmatch 01/10/17 01/10/17 01/10/17 01:21 04:00 04:00 WBC 18.1 H RBC 3.22 L Hgb 8.8 L Hct 27.0 L D MCV MCH 27 L MCHC RDW 17.0 H Plt Count Lymph % (Auto) Pope % (Auto) Lymph # Pope # Baso # Seg Neutrophils % Seg Neuts % (Manual) Lymphocytes % (Manual) Monocytes % (Manual) Eosinophils % (Manual) Basophils % (Manual) Nucleated RBC % Seg Neutrophils # Seg Neutrophils # Man Lymphocytes # (Manual) Monocytes # (Manual) Eosinophils # (Manual) Basophils # (Manual) PT INR Fibrinogen dRVVT Confirm Interp Factor V Activity POC ABG pH POC ABG pCO2 POC ABG pO2 ABG pO2 ABG HCO3 ABG Base Excess ABG Hemoglobin Oxyhemoglobin Sodium Potassium Chloride Carbon Dioxide BUN 59 H Creatinine 1.3 H Glucose 122 H POC Glucose 160 H Lactic Acid Calcium Phosphorus Magnesium Direct Bilirubin AST ALT Alkaline Phosphatase Lactate Dehydrogenase Troponin T C-Reactive Protein Total Protein Albumin Prealbumin Triglycerides Cholesterol LDL Cholesterol Direct HDL Cholesterol PTH Intact Urine pH Urine WBC (Auto) Urine Creatinine Urine Total Protein Fluid Total Protein Vancomycin Trough Rheumatoid Factor Complement C4 Miscellaneous Test Crossmatch 01/10/17 01/10/17 01/10/17 05:36 12:14 17:55 WBC RBC Hgb Hct MCV MCH MCHC RDW Plt Count Lymph % (Auto) Pope % (Auto) Lymph # Pope # Baso # Seg Neutrophils % Seg Neuts % (Manual) Lymphocytes % (Manual) Monocytes % (Manual) Eosinophils % (Manual) Basophils % (Manual) Nucleated RBC % Seg Neutrophils # Seg Neutrophils # Man Lymphocytes # (Manual) Monocytes # (Manual) Eosinophils # (Manual) Basophils # (Manual) PT INR Fibrinogen dRVVT Confirm Interp Factor V Activity POC ABG pH POC ABG pCO2 POC ABG pO2 ABG pO2 ABG HCO3 ABG Base Excess ABG Hemoglobin Oxyhemoglobin Sodium Potassium Chloride Carbon Dioxide BUN Creatinine Glucose POC Glucose 163 H 120 H 144 H Lactic Acid Calcium Phosphorus Magnesium Direct Bilirubin AST ALT Alkaline Phosphatase Lactate Dehydrogenase Troponin T C-Reactive Protein Total Protein Albumin Prealbumin Triglycerides Cholesterol LDL Cholesterol Direct HDL Cholesterol PTH Intact Urine pH Urine WBC (Auto) Urine Creatinine Urine Total Protein Fluid Total Protein Vancomycin Trough Rheumatoid Factor Complement C4 Miscellaneous Test Crossmatch 01/11/17 01/11/17 01/11/17 00:09 04:00 04:00 WBC 15.8 H RBC 3.04 L Hgb 8.2 L Hct 25.5 L MCV MCH 27 L MCHC RDW 17.3 H Plt Count Lymph % (Auto) Pope % (Auto) Lymph # Pope # Baso # Seg Neutrophils % Seg Neuts % (Manual) Lymphocytes % (Manual) Monocytes % (Manual) Eosinophils % (Manual) Basophils % (Manual) Nucleated RBC % Seg Neutrophils # Seg Neutrophils # Man Lymphocytes # (Manual) Monocytes # (Manual) Eosinophils # (Manual) Basophils # (Manual) PT INR Fibrinogen dRVVT Confirm Interp Factor V Activity POC ABG pH POC ABG pCO2 POC ABG pO2 ABG pO2 ABG HCO3 ABG Base Excess ABG Hemoglobin Oxyhemoglobin Sodium Potassium Chloride Carbon Dioxide BUN 78 H Creatinine 1.6 H Glucose 109 H POC Glucose 122 H Lactic Acid Calcium Phosphorus Magnesium Direct Bilirubin AST ALT Alkaline Phosphatase Lactate Dehydrogenase Troponin T C-Reactive Protein Total Protein Albumin Prealbumin Triglycerides Cholesterol LDL Cholesterol Direct HDL Cholesterol PTH Intact Urine pH Urine WBC (Auto) Urine Creatinine Urine Total Protein Fluid Total Protein Vancomycin Trough Rheumatoid Factor Complement C4 Miscellaneous Test Crossmatch 01/11/17 01/11/17 01/11/17 12:46 18:23 23:42 WBC RBC Hgb Hct MCV MCH MCHC RDW Plt Count Lymph % (Auto) Pope % (Auto) Lymph # Pope # Baso # Seg Neutrophils % Seg Neuts % (Manual) Lymphocytes % (Manual) Monocytes % (Manual) Eosinophils % (Manual) Basophils % (Manual) Nucleated RBC % Seg Neutrophils # Seg Neutrophils # Man Lymphocytes # (Manual) Monocytes # (Manual) Eosinophils # (Manual) Basophils # (Manual) PT INR Fibrinogen dRVVT Confirm Interp Factor V Activity POC ABG pH POC ABG pCO2 POC ABG pO2 ABG pO2 ABG HCO3 ABG Base Excess ABG Hemoglobin Oxyhemoglobin Sodium Potassium Chloride Carbon Dioxide BUN Creatinine Glucose POC Glucose 148 H 125 H 124 H Lactic Acid Calcium Phosphorus Magnesium Direct Bilirubin AST ALT Alkaline Phosphatase Lactate Dehydrogenase Troponin T C-Reactive Protein Total Protein Albumin Prealbumin Triglycerides Cholesterol LDL Cholesterol Direct HDL Cholesterol PTH Intact Urine pH Urine WBC (Auto) Urine Creatinine Urine Total Protein Fluid Total Protein Vancomycin Trough Rheumatoid Factor Complement C4 Miscellaneous Test Crossmatch 01/12/17 01/12/17 01/12/17 04:30 04:30 05:47 WBC 15.8 H RBC 3.31 L Hgb 8.9 L Hct 27.9 L MCV MCH 27 L MCHC RDW 17.4 H Plt Count Lymph % (Auto) Pope % (Auto) Lymph # Pope # Baso # Seg Neutrophils % Seg Neuts % (Manual) Lymphocytes % (Manual) Monocytes % (Manual) Eosinophils % (Manual) Basophils % (Manual) Nucleated RBC % Seg Neutrophils # Seg Neutrophils # Man Lymphocytes # (Manual) Monocytes # (Manual) Eosinophils # (Manual) Basophils # (Manual) PT INR Fibrinogen dRVVT Confirm Interp Factor V Activity POC ABG pH POC ABG pCO2 POC ABG pO2 ABG pO2 ABG HCO3 ABG Base Excess ABG Hemoglobin Oxyhemoglobin Sodium Potassium Chloride Carbon Dioxide BUN 57 H Creatinine Glucose 121 H POC Glucose 110 H Lactic Acid Calcium Phosphorus 2.10 L Magnesium Direct Bilirubin AST ALT Alkaline Phosphatase Lactate Dehydrogenase Troponin T C-Reactive Protein Total Protein Albumin Prealbumin Triglycerides Cholesterol LDL Cholesterol Direct HDL Cholesterol PTH Intact Urine pH Urine WBC (Auto) Urine Creatinine Urine Total Protein Fluid Total Protein Vancomycin Trough Rheumatoid Factor Complement C4 Miscellaneous Test Crossmatch 01/12/17 01/12/17 01/12/17 11:35 17:45 23:14 WBC RBC Hgb Hct MCV MCH MCHC RDW Plt Count Lymph % (Auto) Pope % (Auto) Lymph # Pope # Baso # Seg Neutrophils % Seg Neuts % (Manual) Lymphocytes % (Manual) Monocytes % (Manual) Eosinophils % (Manual) Basophils % (Manual) Nucleated RBC % Seg Neutrophils # Seg Neutrophils # Man Lymphocytes # (Manual) Monocytes # (Manual) Eosinophils # (Manual) Basophils # (Manual) PT INR Fibrinogen dRVVT Confirm Interp Factor V Activity POC ABG pH POC ABG pCO2 POC ABG pO2 ABG pO2 ABG HCO3 ABG Base Excess ABG Hemoglobin Oxyhemoglobin Sodium Potassium Chloride Carbon Dioxide BUN Creatinine Glucose POC Glucose 146 H 117 H 123 H Lactic Acid Calcium Phosphorus Magnesium Direct Bilirubin AST ALT Alkaline Phosphatase Lactate Dehydrogenase Troponin T C-Reactive Protein Total Protein Albumin Prealbumin Triglycerides Cholesterol LDL Cholesterol Direct HDL Cholesterol PTH Intact Urine pH Urine WBC (Auto) Urine Creatinine Urine Total Protein Fluid Total Protein Vancomycin Trough Rheumatoid Factor Complement C4 Miscellaneous Test Crossmatch 01/13/17 01/13/17 01/13/17 05:32 06:00 12:10 WBC RBC Hgb Hct MCV MCH MCHC RDW Plt Count Lymph % (Auto) Pope % (Auto) Lymph # Pope # Baso # Seg Neutrophils % Seg Neuts % (Manual) Lymphocytes % (Manual) Monocytes % (Manual) Eosinophils % (Manual) Basophils % (Manual) Nucleated RBC % Seg Neutrophils # Seg Neutrophils # Man Lymphocytes # (Manual) Monocytes # (Manual) Eosinophils # (Manual) Basophils # (Manual) PT INR Fibrinogen dRVVT Confirm Interp Factor V Activity POC ABG pH POC ABG pCO2 POC ABG pO2 ABG pO2 ABG HCO3 ABG Base Excess ABG Hemoglobin Oxyhemoglobin Sodium Potassium Chloride Carbon Dioxide BUN 80 H Creatinine 1.4 H Glucose 106 H POC Glucose 106 H Lactic Acid Calcium Phosphorus Magnesium Direct Bilirubin AST ALT Alkaline Phosphatase Lactate Dehydrogenase Troponin T C-Reactive Protein Total Protein Albumin Prealbumin Triglycerides Cholesterol LDL Cholesterol Direct HDL Cholesterol PTH Intact Urine pH Urine WBC (Auto) Urine Creatinine Urine Total Protein Fluid Total Protein 3.0 L Vancomycin Trough Rheumatoid Factor Complement C4 Miscellaneous Test Crossmatch 01/13/17 01/13/17 01/13/17 12:17 15:50 17:30 WBC RBC Hgb Hct MCV MCH MCHC RDW Plt Count Lymph % (Auto) Pope % (Auto) Lymph # Pope # Baso # Seg Neutrophils % Seg Neuts % (Manual) Lymphocytes % (Manual) Monocytes % (Manual) Eosinophils % (Manual) Basophils % (Manual) Nucleated RBC % Seg Neutrophils # Seg Neutrophils # Man Lymphocytes # (Manual) Monocytes # (Manual) Eosinophils # (Manual) Basophils # (Manual) PT 15.4 H INR 1.16 H Fibrinogen dRVVT Confirm Interp Factor V Activity POC ABG pH POC ABG pCO2 POC ABG pO2 ABG pO2 ABG HCO3 ABG Base Excess ABG Hemoglobin Oxyhemoglobin Sodium Potassium Chloride Carbon Dioxide BUN Creatinine Glucose POC Glucose 168 H 110 H Lactic Acid Calcium Phosphorus Magnesium Direct Bilirubin AST ALT Alkaline Phosphatase Lactate Dehydrogenase Troponin T C-Reactive Protein Total Protein Albumin Prealbumin Triglycerides Cholesterol LDL Cholesterol Direct HDL Cholesterol PTH Intact Urine pH Urine WBC (Auto) Urine Creatinine Urine Total Protein Fluid Total Protein Vancomycin Trough Rheumatoid Factor Complement C4 Miscellaneous Test Crossmatch 01/13/17 01/14/17 01/14/17 23:42 05:24 05:30 WBC RBC Hgb Hct MCV MCH MCHC RDW Plt Count Lymph % (Auto) Pope % (Auto) Lymph # Pope # Baso # Seg Neutrophils % Seg Neuts % (Manual) Lymphocytes % (Manual) Monocytes % (Manual) Eosinophils % (Manual) Basophils % (Manual) Nucleated RBC % Seg Neutrophils # Seg Neutrophils # Man Lymphocytes # (Manual) Monocytes # (Manual) Eosinophils # (Manual) Basophils # (Manual) PT INR Fibrinogen dRVVT Confirm Interp Factor V Activity POC ABG pH POC ABG pCO2 POC ABG pO2 ABG pO2 ABG HCO3 ABG Base Excess ABG Hemoglobin Oxyhemoglobin Sodium Potassium Chloride Carbon Dioxide BUN 58 H Creatinine Glucose 114 H POC Glucose 155 H 121 H Lactic Acid Calcium Phosphorus Magnesium Direct Bilirubin AST ALT Alkaline Phosphatase Lactate Dehydrogenase Troponin T C-Reactive Protein Total Protein Albumin Prealbumin Triglycerides Cholesterol LDL Cholesterol Direct HDL Cholesterol PTH Intact Urine pH Urine WBC (Auto) Urine Creatinine Urine Total Protein Fluid Total Protein Vancomycin Trough Rheumatoid Factor Complement C4 Miscellaneous Test Crossmatch 01/14/17 01/14/17 01/15/17 12:48 17:36 00:15 WBC RBC Hgb Hct MCV MCH MCHC RDW Plt Count Lymph % (Auto) Pope % (Auto) Lymph # Pope # Baso # Seg Neutrophils % Seg Neuts % (Manual) Lymphocytes % (Manual) Monocytes % (Manual) Eosinophils % (Manual) Basophils % (Manual) Nucleated RBC % Seg Neutrophils # Seg Neutrophils # Man Lymphocytes # (Manual) Monocytes # (Manual) Eosinophils # (Manual) Basophils # (Manual) PT INR Fibrinogen dRVVT Confirm Interp Factor V Activity POC ABG pH POC ABG pCO2 POC ABG pO2 ABG pO2 ABG HCO3 ABG Base Excess ABG Hemoglobin Oxyhemoglobin Sodium Potassium Chloride Carbon Dioxide BUN Creatinine Glucose POC Glucose 130 H 135 H 132 H Lactic Acid Calcium Phosphorus Magnesium Direct Bilirubin AST ALT Alkaline Phosphatase Lactate Dehydrogenase Troponin T C-Reactive Protein Total Protein Albumin Prealbumin Triglycerides Cholesterol LDL Cholesterol Direct HDL Cholesterol PTH Intact Urine pH Urine WBC (Auto) Urine Creatinine Urine Total Protein Fluid Total Protein Vancomycin Trough Rheumatoid Factor Complement C4 Miscellaneous Test Crossmatch 01/15/17 01/15/17 01/15/17 05:01 11:55 12:45 WBC 16.2 H RBC 3.00 L Hgb 8.1 L Hct 25.4 L MCV MCH 27 L MCHC RDW 17.6 H Plt Count Lymph % (Auto) 11.7 L Pope % (Auto) 7.8 H Lymph # Pope # 1.3 H Baso # Seg Neutrophils % 80.1 H Seg Neuts % (Manual) Lymphocytes % (Manual) Monocytes % (Manual) Eosinophils % (Manual) Basophils % (Manual) Nucleated RBC % Seg Neutrophils # 13.0 H Seg Neutrophils # Man Lymphocytes # (Manual) Monocytes # (Manual) Eosinophils # (Manual) Basophils # (Manual) PT INR Fibrinogen dRVVT Confirm Interp Factor V Activity POC ABG pH POC ABG pCO2 POC ABG pO2 ABG pO2 ABG HCO3 ABG Base Excess ABG Hemoglobin Oxyhemoglobin Sodium Potassium Chloride Carbon Dioxide BUN Creatinine Glucose POC Glucose 126 H 125 H Lactic Acid Calcium Phosphorus Magnesium Direct Bilirubin AST ALT Alkaline Phosphatase Lactate Dehydrogenase Troponin T C-Reactive Protein Total Protein Albumin Prealbumin Triglycerides Cholesterol LDL Cholesterol Direct HDL Cholesterol PTH Intact Urine pH Urine WBC (Auto) Urine Creatinine Urine Total Protein Fluid Total Protein Vancomycin Trough Rheumatoid Factor Complement C4 Miscellaneous Test Crossmatch 01/15/17 01/15/17 01/15/17 12:45 17:31 23:39 WBC RBC Hgb Hct MCV MCH MCHC RDW Plt Count Lymph % (Auto) Pope % (Auto) Lymph # Pope # Baso # Seg Neutrophils % Seg Neuts % (Manual) Lymphocytes % (Manual) Monocytes % (Manual) Eosinophils % (Manual) Basophils % (Manual) Nucleated RBC % Seg Neutrophils # Seg Neutrophils # Man Lymphocytes # (Manual) Monocytes # (Manual) Eosinophils # (Manual) Basophils # (Manual) PT INR Fibrinogen dRVVT Confirm Interp Factor V Activity POC ABG pH POC ABG pCO2 POC ABG pO2 ABG pO2 ABG HCO3 ABG Base Excess ABG Hemoglobin Oxyhemoglobin Sodium 136 L Potassium Chloride Carbon Dioxide BUN 87 H Creatinine 1.7 H Glucose 108 H POC Glucose 129 H 112 H Lactic Acid Calcium Phosphorus Magnesium Direct Bilirubin AST ALT Alkaline Phosphatase Lactate Dehydrogenase Troponin T C-Reactive Protein Total Protein Albumin Prealbumin Triglycerides Cholesterol LDL Cholesterol Direct HDL Cholesterol PTH Intact Urine pH Urine WBC (Auto) Urine Creatinine Urine Total Protein Fluid Total Protein Vancomycin Trough Rheumatoid Factor Complement C4 Miscellaneous Test Crossmatch 01/16/17 01/16/17 01/16/17 05:23 11:42 12:32 WBC RBC Hgb Hct MCV MCH MCHC RDW Plt Count Lymph % (Auto) Pope % (Auto) Lymph # Pope # Baso # Seg Neutrophils % Seg Neuts % (Manual) Lymphocytes % (Manual) Monocytes % (Manual) Eosinophils % (Manual) Basophils % (Manual) Nucleated RBC % Seg Neutrophils # Seg Neutrophils # Man Lymphocytes # (Manual) Monocytes # (Manual) Eosinophils # (Manual) Basophils # (Manual) PT INR Fibrinogen dRVVT Confirm Interp Factor V Activity POC ABG pH 7.499 H POC ABG pCO2 30.9 L POC ABG pO2 51 L ABG pO2 ABG HCO3 ABG Base Excess ABG Hemoglobin Oxyhemoglobin Sodium Potassium Chloride Carbon Dioxide BUN Creatinine Glucose POC Glucose 118 H 133 H Lactic Acid Calcium Phosphorus Magnesium Direct Bilirubin AST ALT Alkaline Phosphatase Lactate Dehydrogenase Troponin T C-Reactive Protein Total Protein Albumin Prealbumin Triglycerides Cholesterol LDL Cholesterol Direct HDL Cholesterol PTH Intact Urine pH Urine WBC (Auto) Urine Creatinine Urine Total Protein Fluid Total Protein Vancomycin Trough Rheumatoid Factor Complement C4 Miscellaneous Test Crossmatch 01/16/17 01/16/17 01/16/17 17:52 23:57 Unknown WBC RBC Hgb Hct MCV MCH MCHC RDW Plt Count Lymph % (Auto) Pope % (Auto) Lymph # Pope # Baso # Seg Neutrophils % Seg Neuts % (Manual) Lymphocytes % (Manual) Monocytes % (Manual) Eosinophils % (Manual) Basophils % (Manual) Nucleated RBC % Seg Neutrophils # Seg Neutrophils # Man Lymphocytes # (Manual) Monocytes # (Manual) Eosinophils # (Manual) Basophils # (Manual) PT INR Fibrinogen dRVVT Confirm Interp Factor V Activity POC ABG pH POC ABG pCO2 POC ABG pO2 ABG pO2 ABG HCO3 ABG Base Excess ABG Hemoglobin Oxyhemoglobin Sodium 135 L Potassium Chloride Carbon Dioxide BUN 101 H Creatinine 1.8 H Glucose 117 H POC Glucose 130 H 143 H Lactic Acid Calcium Phosphorus 5.80 H Magnesium Direct Bilirubin AST ALT Alkaline Phosphatase Lactate Dehydrogenase Troponin T C-Reactive Protein Total Protein Albumin Prealbumin Triglycerides Cholesterol LDL Cholesterol Direct HDL Cholesterol PTH Intact Urine pH Urine WBC (Auto) Urine Creatinine Urine Total Protein Fluid Total Protein Vancomycin Trough Rheumatoid Factor Complement C4 Miscellaneous Test Crossmatch 01/17/17 01/17/17 01/17/17 05:30 05:46 11:49 WBC RBC Hgb Hct MCV MCH MCHC RDW Plt Count Lymph % (Auto) Pope % (Auto) Lymph # Pope # Baso # Seg Neutrophils % Seg Neuts % (Manual) Lymphocytes % (Manual) Monocytes % (Manual) Eosinophils % (Manual) Basophils % (Manual) Nucleated RBC % Seg Neutrophils # Seg Neutrophils # Man Lymphocytes # (Manual) Monocytes # (Manual) Eosinophils # (Manual) Basophils # (Manual) PT INR Fibrinogen dRVVT Confirm Interp Factor V Activity POC ABG pH POC ABG pCO2 POC ABG pO2 ABG pO2 ABG HCO3 ABG Base Excess ABG Hemoglobin Oxyhemoglobin Sodium 134 L Potassium Chloride 95.8 L Carbon Dioxide BUN 66 H Creatinine 1.3 H Glucose 138 H POC Glucose 147 H 124 H Lactic Acid Calcium Phosphorus Magnesium Direct Bilirubin AST ALT Alkaline Phosphatase 254 H Lactate Dehydrogenase Troponin T C-Reactive Protein Total Protein Albumin 1.3 L Prealbumin Triglycerides Cholesterol LDL Cholesterol Direct HDL Cholesterol PTH Intact Urine pH Urine WBC (Auto) Urine Creatinine Urine Total Protein Fluid Total Protein Vancomycin Trough Rheumatoid Factor Complement C4 Miscellaneous Test Crossmatch 01/17/17 01/17/17 01/18/17 17:30 23:41 05:15 WBC RBC Hgb Hct MCV MCH MCHC RDW Plt Count Lymph % (Auto) Pope % (Auto) Lymph # Pope # Baso # Seg Neutrophils % Seg Neuts % (Manual) Lymphocytes % (Manual) Monocytes % (Manual) Eosinophils % (Manual) Basophils % (Manual) Nucleated RBC % Seg Neutrophils # Seg Neutrophils # Man Lymphocytes # (Manual) Monocytes # (Manual) Eosinophils # (Manual) Basophils # (Manual) PT INR Fibrinogen dRVVT Confirm Interp Factor V Activity POC ABG pH POC ABG pCO2 POC ABG pO2 ABG pO2 ABG HCO3 ABG Base Excess ABG Hemoglobin Oxyhemoglobin Sodium Potassium Chloride Carbon Dioxide BUN 89 H Creatinine 1.7 H Glucose 118 H POC Glucose 137 H 119 H Lactic Acid Calcium Phosphorus Magnesium Direct Bilirubin AST ALT Alkaline Phosphatase Lactate Dehydrogenase Troponin T C-Reactive Protein Total Protein Albumin Prealbumin Triglycerides Cholesterol LDL Cholesterol Direct HDL Cholesterol PTH Intact Urine pH Urine WBC (Auto) Urine Creatinine Urine Total Protein Fluid Total Protein Vancomycin Trough Rheumatoid Factor Complement C4 Miscellaneous Test Crossmatch 01/18/17 01/18/17 01/18/17 05:19 12:16 18:11 WBC RBC Hgb Hct MCV MCH MCHC RDW Plt Count Lymph % (Auto) Pope % (Auto) Lymph # Pope # Baso # Seg Neutrophils % Seg Neuts % (Manual) Lymphocytes % (Manual) Monocytes % (Manual) Eosinophils % (Manual) Basophils % (Manual) Nucleated RBC % Seg Neutrophils # Seg Neutrophils # Man Lymphocytes # (Manual) Monocytes # (Manual) Eosinophils # (Manual) Basophils # (Manual) PT INR Fibrinogen dRVVT Confirm Interp Factor V Activity POC ABG pH POC ABG pCO2 POC ABG pO2 ABG pO2 ABG HCO3 ABG Base Excess ABG Hemoglobin Oxyhemoglobin Sodium Potassium Chloride Carbon Dioxide BUN Creatinine Glucose POC Glucose 134 H 188 H 113 H Lactic Acid Calcium Phosphorus Magnesium Direct Bilirubin AST ALT Alkaline Phosphatase Lactate Dehydrogenase Troponin T C-Reactive Protein Total Protein Albumin Prealbumin Triglycerides Cholesterol LDL Cholesterol Direct HDL Cholesterol PTH Intact Urine pH Urine WBC (Auto) Urine Creatinine Urine Total Protein Fluid Total Protein Vancomycin Trough Rheumatoid Factor Complement C4 Miscellaneous Test Crossmatch 01/19/17 01/19/17 01/19/17 00:00 05:30 05:36 WBC RBC Hgb Hct MCV MCH MCHC RDW Plt Count Lymph % (Auto) Pope % (Auto) Lymph # Pope # Baso # Seg Neutrophils % Seg Neuts % (Manual) Lymphocytes % (Manual) Monocytes % (Manual) Eosinophils % (Manual) Basophils % (Manual) Nucleated RBC % Seg Neutrophils # Seg Neutrophils # Man Lymphocytes # (Manual) Monocytes # (Manual) Eosinophils # (Manual) Basophils # (Manual) PT INR Fibrinogen dRVVT Confirm Interp Factor V Activity POC ABG pH POC ABG pCO2 POC ABG pO2 ABG pO2 ABG HCO3 ABG Base Excess ABG Hemoglobin Oxyhemoglobin Sodium Potassium Chloride Carbon Dioxide BUN 70 H Creatinine 1.5 H Glucose 121 H POC Glucose 137 H 155 H Lactic Acid Calcium Phosphorus 2.10 L D Magnesium Direct Bilirubin AST ALT Alkaline Phosphatase Lactate Dehydrogenase Troponin T C-Reactive Protein Total Protein Albumin Prealbumin Triglycerides Cholesterol LDL Cholesterol Direct HDL Cholesterol PTH Intact Urine pH Urine WBC (Auto) Urine Creatinine Urine Total Protein Fluid Total Protein Vancomycin Trough Rheumatoid Factor Complement C4 Miscellaneous Test Crossmatch 01/19/17 01/19/17 01/19/17 11:59 15:32 17:57 WBC RBC Hgb Hct MCV MCH MCHC RDW Plt Count Lymph % (Auto) Pope % (Auto) Lymph # Pope # Baso # Seg Neutrophils % Seg Neuts % (Manual) Lymphocytes % (Manual) Monocytes % (Manual) Eosinophils % (Manual) Basophils % (Manual) Nucleated RBC % Seg Neutrophils # Seg Neutrophils # Man Lymphocytes # (Manual) Monocytes # (Manual) Eosinophils # (Manual) Basophils # (Manual) PT INR Fibrinogen dRVVT Confirm Interp Factor V Activity POC ABG pH POC ABG pCO2 33.1 L POC ABG pO2 76 L ABG pO2 ABG HCO3 ABG Base Excess ABG Hemoglobin Oxyhemoglobin Sodium Potassium Chloride Carbon Dioxide BUN Creatinine Glucose POC Glucose 156 H 129 H Lactic Acid Calcium Phosphorus Magnesium Direct Bilirubin AST ALT Alkaline Phosphatase Lactate Dehydrogenase Troponin T C-Reactive Protein Total Protein Albumin Prealbumin Triglycerides Cholesterol LDL Cholesterol Direct HDL Cholesterol PTH Intact Urine pH Urine WBC (Auto) Urine Creatinine Urine Total Protein Fluid Total Protein Vancomycin Trough Rheumatoid Factor Complement C4 Miscellaneous Test Crossmatch 01/19/17 01/20/17 01/20/17 23:49 04:00 05:21 WBC RBC Hgb Hct MCV MCH MCHC RDW Plt Count Lymph % (Auto) Pope % (Auto) Lymph # Pope # Baso # Seg Neutrophils % Seg Neuts % (Manual) Lymphocytes % (Manual) Monocytes % (Manual) Eosinophils % (Manual) Basophils % (Manual) Nucleated RBC % Seg Neutrophils # Seg Neutrophils # Man Lymphocytes # (Manual) Monocytes # (Manual) Eosinophils # (Manual) Basophils # (Manual) PT INR Fibrinogen dRVVT Confirm Interp Factor V Activity POC ABG pH POC ABG pCO2 POC ABG pO2 ABG pO2 ABG HCO3 ABG Base Excess ABG Hemoglobin Oxyhemoglobin Sodium Potassium Chloride Carbon Dioxide BUN 96 H Creatinine 1.9 H Glucose 106 H POC Glucose 125 H 130 H Lactic Acid Calcium Phosphorus 2.40 L Magnesium Direct Bilirubin AST ALT Alkaline Phosphatase Lactate Dehydrogenase Troponin T C-Reactive Protein Total Protein Albumin Prealbumin Triglycerides Cholesterol LDL Cholesterol Direct HDL Cholesterol PTH Intact Urine pH Urine WBC (Auto) Urine Creatinine Urine Total Protein Fluid Total Protein Vancomycin Trough Rheumatoid Factor Complement C4 Miscellaneous Test Crossmatch 01/20/17 01/20/17 01/20/17 11:58 12:17 17:26 WBC RBC Hgb Hct MCV MCH MCHC RDW Plt Count Lymph % (Auto) Pope % (Auto) Lymph # Pope # Baso # Seg Neutrophils % Seg Neuts % (Manual) Lymphocytes % (Manual) Monocytes % (Manual) Eosinophils % (Manual) Basophils % (Manual) Nucleated RBC % Seg Neutrophils # Seg Neutrophils # Man Lymphocytes # (Manual) Monocytes # (Manual) Eosinophils # (Manual) Basophils # (Manual) PT INR Fibrinogen dRVVT Confirm Interp Factor V Activity POC ABG pH POC ABG pCO2 POC ABG pO2 70 L ABG pO2 ABG HCO3 ABG Base Excess ABG Hemoglobin Oxyhemoglobin Sodium Potassium Chloride Carbon Dioxide BUN Creatinine Glucose POC Glucose 118 H 154 H Lactic Acid Calcium Phosphorus Magnesium Direct Bilirubin AST ALT Alkaline Phosphatase Lactate Dehydrogenase Troponin T C-Reactive Protein Total Protein Albumin Prealbumin Triglycerides Cholesterol LDL Cholesterol Direct HDL Cholesterol PTH Intact Urine pH Urine WBC (Auto) Urine Creatinine Urine Total Protein Fluid Total Protein Vancomycin Trough Rheumatoid Factor Complement C4 Miscellaneous Test Crossmatch 01/21/17 01/21/17 01/21/17 04:00 04:56 11:46 WBC RBC Hgb Hct MCV MCH MCHC RDW Plt Count Lymph % (Auto) Pope % (Auto) Lymph # Pope # Baso # Seg Neutrophils % Seg Neuts % (Manual) Lymphocytes % (Manual) Monocytes % (Manual) Eosinophils % (Manual) Basophils % (Manual) Nucleated RBC % Seg Neutrophils # Seg Neutrophils # Man Lymphocytes # (Manual) Monocytes # (Manual) Eosinophils # (Manual) Basophils # (Manual) PT INR Fibrinogen dRVVT Confirm Interp Factor V Activity POC ABG pH POC ABG pCO2 POC ABG pO2 ABG pO2 ABG HCO3 ABG Base Excess ABG Hemoglobin Oxyhemoglobin Sodium Potassium 3.5 L Chloride 97.4 L Carbon Dioxide BUN 66 H Creatinine 1.4 H Glucose POC Glucose 116 H 106 H Lactic Acid Calcium Phosphorus 2.10 L Magnesium Direct Bilirubin AST ALT Alkaline Phosphatase Lactate Dehydrogenase Troponin T C-Reactive Protein Total Protein Albumin Prealbumin Triglycerides Cholesterol LDL Cholesterol Direct HDL Cholesterol PTH Intact Urine pH Urine WBC (Auto) Urine Creatinine Urine Total Protein Fluid Total Protein Vancomycin Trough Rheumatoid Factor Complement C4 Miscellaneous Test Crossmatch 01/21/17 01/21/17 01/22/17 17:25 23:49 05:35 WBC RBC Hgb Hct MCV MCH MCHC RDW Plt Count Lymph % (Auto) Pope % (Auto) Lymph # Pope # Baso # Seg Neutrophils % Seg Neuts % (Manual) Lymphocytes % (Manual) Monocytes % (Manual) Eosinophils % (Manual) Basophils % (Manual) Nucleated RBC % Seg Neutrophils # Seg Neutrophils # Man Lymphocytes # (Manual) Monocytes # (Manual) Eosinophils # (Manual) Basophils # (Manual) PT INR Fibrinogen dRVVT Confirm Interp Factor V Activity POC ABG pH POC ABG pCO2 POC ABG pO2 ABG pO2 ABG HCO3 ABG Base Excess ABG Hemoglobin Oxyhemoglobin Sodium Potassium Chloride Carbon Dioxide BUN Creatinine Glucose POC Glucose 106 H 133 H 107 H Lactic Acid Calcium Phosphorus Magnesium Direct Bilirubin AST ALT Alkaline Phosphatase Lactate Dehydrogenase Troponin T C-Reactive Protein Total Protein Albumin Prealbumin Triglycerides Cholesterol LDL Cholesterol Direct HDL Cholesterol PTH Intact Urine pH Urine WBC (Auto) Urine Creatinine Urine Total Protein Fluid Total Protein Vancomycin Trough Rheumatoid Factor Complement C4 Miscellaneous Test Crossmatch 01/22/17 01/22/17 01/22/17 07:20 07:20 11:31 WBC RBC 2.75 L Hgb 7.5 L Hct 22.7 L MCV MCH 27 L MCHC RDW 17.5 H Plt Count Lymph % (Auto) Pope % (Auto) Lymph # Pope # Baso # Seg Neutrophils % Seg Neuts % (Manual) Lymphocytes % (Manual) Monocytes % (Manual) Eosinophils % (Manual) Basophils % (Manual) Nucleated RBC % Seg Neutrophils # Seg Neutrophils # Man Lymphocytes # (Manual) Monocytes # (Manual) Eosinophils # (Manual) Basophils # (Manual) PT INR Fibrinogen dRVVT Confirm Interp Factor V Activity POC ABG pH POC ABG pCO2 POC ABG pO2 ABG pO2 ABG HCO3 ABG Base Excess ABG Hemoglobin Oxyhemoglobin Sodium Potassium 3.3 L Chloride Carbon Dioxide BUN 42 H Creatinine Glucose 105 H POC Glucose 124 H Lactic Acid Calcium Phosphorus 1.70 L Magnesium Direct Bilirubin AST ALT Alkaline Phosphatase Lactate Dehydrogenase Troponin T C-Reactive Protein Total Protein Albumin Prealbumin Triglycerides Cholesterol LDL Cholesterol Direct HDL Cholesterol PTH Intact Urine pH Urine WBC (Auto) Urine Creatinine Urine Total Protein Fluid Total Protein Vancomycin Trough Rheumatoid Factor Complement C4 Miscellaneous Test Crossmatch 01/22/17 01/22/17 01/23/17 17:16 23:35 05:35 WBC RBC Hgb Hct MCV MCH MCHC RDW Plt Count Lymph % (Auto) Pope % (Auto) Lymph # Pope # Baso # Seg Neutrophils % Seg Neuts % (Manual) Lymphocytes % (Manual) Monocytes % (Manual) Eosinophils % (Manual) Basophils % (Manual) Nucleated RBC % Seg Neutrophils # Seg Neutrophils # Man Lymphocytes # (Manual) Monocytes # (Manual) Eosinophils # (Manual) Basophils # (Manual) PT INR Fibrinogen dRVVT Confirm Interp Factor V Activity POC ABG pH POC ABG pCO2 POC ABG pO2 ABG pO2 ABG HCO3 ABG Base Excess ABG Hemoglobin Oxyhemoglobin Sodium Potassium Chloride Carbon Dioxide BUN Creatinine Glucose POC Glucose 135 H 120 H 111 H Lactic Acid Calcium Phosphorus Magnesium Direct Bilirubin AST ALT Alkaline Phosphatase Lactate Dehydrogenase Troponin T C-Reactive Protein Total Protein Albumin Prealbumin Triglycerides Cholesterol LDL Cholesterol Direct HDL Cholesterol PTH Intact Urine pH Urine WBC (Auto) Urine Creatinine Urine Total Protein Fluid Total Protein Vancomycin Trough Rheumatoid Factor Complement C4 Miscellaneous Test Crossmatch 01/23/17 01/23/17 01/23/17 06:10 17:27 23:44 WBC RBC Hgb Hct MCV MCH MCHC RDW Plt Count Lymph % (Auto) Pope % (Auto) Lymph # Pope # Baso # Seg Neutrophils % Seg Neuts % (Manual) Lymphocytes % (Manual) Monocytes % (Manual) Eosinophils % (Manual) Basophils % (Manual) Nucleated RBC % Seg Neutrophils # Seg Neutrophils # Man Lymphocytes # (Manual) Monocytes # (Manual) Eosinophils # (Manual) Basophils # (Manual) PT INR Fibrinogen dRVVT Confirm Interp Factor V Activity POC ABG pH POC ABG pCO2 POC ABG pO2 ABG pO2 ABG HCO3 ABG Base Excess ABG Hemoglobin Oxyhemoglobin Sodium Potassium 3.3 L Chloride Carbon Dioxide BUN 66 H Creatinine 1.3 H Glucose 109 H POC Glucose 120 H 115 H Lactic Acid Calcium Phosphorus 2.20 L D Magnesium Direct Bilirubin AST ALT Alkaline Phosphatase Lactate Dehydrogenase Troponin T C-Reactive Protein Total Protein Albumin Prealbumin Triglycerides Cholesterol LDL Cholesterol Direct HDL Cholesterol PTH Intact Urine pH Urine WBC (Auto) Urine Creatinine Urine Total Protein Fluid Total Protein Vancomycin Trough Rheumatoid Factor Complement C4 Miscellaneous Test Crossmatch 01/24/17 01/24/17 01/24/17 05:19 05:50 12:19 WBC RBC Hgb Hct MCV MCH MCHC RDW Plt Count Lymph % (Auto) Pope % (Auto) Lymph # Pope # Baso # Seg Neutrophils % Seg Neuts % (Manual) Lymphocytes % (Manual) Monocytes % (Manual) Eosinophils % (Manual) Basophils % (Manual) Nucleated RBC % Seg Neutrophils # Seg Neutrophils # Man Lymphocytes # (Manual) Monocytes # (Manual) Eosinophils # (Manual) Basophils # (Manual) PT INR Fibrinogen dRVVT Confirm Interp Factor V Activity POC ABG pH POC ABG pCO2 POC ABG pO2 ABG pO2 ABG HCO3 ABG Base Excess ABG Hemoglobin Oxyhemoglobin Sodium Potassium Chloride Carbon Dioxide BUN 47 H Creatinine Glucose 117 H POC Glucose 126 H 119 H Lactic Acid Calcium Phosphorus 2.30 L Magnesium 1.60 L Direct Bilirubin AST ALT Alkaline Phosphatase Lactate Dehydrogenase Troponin T C-Reactive Protein Total Protein Albumin Prealbumin Triglycerides Cholesterol LDL Cholesterol Direct HDL Cholesterol PTH Intact Urine pH Urine WBC (Auto) Urine Creatinine Urine Total Protein Fluid Total Protein Vancomycin Trough Rheumatoid Factor Complement C4 Miscellaneous Test Crossmatch 01/24/17 01/25/17 01/25/17 17:08 00:37 04:00 WBC RBC Hgb Hct MCV MCH MCHC RDW Plt Count Lymph % (Auto) Pope % (Auto) Lymph # Pope # Baso # Seg Neutrophils % Seg Neuts % (Manual) Lymphocytes % (Manual) Monocytes % (Manual) Eosinophils % (Manual) Basophils % (Manual) Nucleated RBC % Seg Neutrophils # Seg Neutrophils # Man Lymphocytes # (Manual) Monocytes # (Manual) Eosinophils # (Manual) Basophils # (Manual) PT INR Fibrinogen dRVVT Confirm Interp Factor V Activity POC ABG pH POC ABG pCO2 POC ABG pO2 ABG pO2 ABG HCO3 ABG Base Excess ABG Hemoglobin Oxyhemoglobin Sodium Potassium Chloride Carbon Dioxide BUN 72 H Creatinine 1.3 H Glucose POC Glucose 127 H 110 H Lactic Acid Calcium Phosphorus Magnesium Direct Bilirubin AST ALT Alkaline Phosphatase Lactate Dehydrogenase Troponin T C-Reactive Protein Total Protein Albumin Prealbumin Triglycerides Cholesterol LDL Cholesterol Direct HDL Cholesterol PTH Intact Urine pH Urine WBC (Auto) Urine Creatinine Urine Total Protein Fluid Total Protein Vancomycin Trough Rheumatoid Factor Complement C4 Miscellaneous Test Crossmatch 01/25/17 01/25/17 01/25/17 04:00 11:15 13:05 WBC RBC 2.49 L Hgb 6.7 L Hct 20.9 L MCV MCH 27 L MCHC RDW 18.8 H Plt Count Lymph % (Auto) Pope % (Auto) 10.1 H Lymph # Pope # 1.0 H Baso # Seg Neutrophils % Seg Neuts % (Manual) Lymphocytes % (Manual) Monocytes % (Manual) Eosinophils % (Manual) Basophils % (Manual) Nucleated RBC % Seg Neutrophils # Seg Neutrophils # Man Lymphocytes # (Manual) Monocytes # (Manual) Eosinophils # (Manual) Basophils # (Manual) PT INR Fibrinogen dRVVT Confirm Interp Factor V Activity POC ABG pH POC ABG pCO2 POC ABG pO2 ABG pO2 ABG HCO3 ABG Base Excess ABG Hemoglobin Oxyhemoglobin Sodium Potassium Chloride Carbon Dioxide BUN Creatinine Glucose POC Glucose 128 H Lactic Acid Calcium Phosphorus Magnesium Direct Bilirubin AST ALT Alkaline Phosphatase Lactate Dehydrogenase Troponin T C-Reactive Protein Total Protein Albumin Prealbumin Triglycerides Cholesterol LDL Cholesterol Direct HDL Cholesterol PTH Intact Urine pH Urine WBC (Auto) Urine Creatinine Urine Total Protein Fluid Total Protein Vancomycin Trough Rheumatoid Factor Complement C4 Miscellaneous Test Crossmatch See Detail 01/25/17 01/25/17 01/26/17 18:02 23:07 01:20 WBC RBC Hgb Hct MCV MCH MCHC RDW Plt Count Lymph % (Auto) Pope % (Auto) Lymph # Pope # Baso # Seg Neutrophils % Seg Neuts % (Manual) Lymphocytes % (Manual) Monocytes % (Manual) Eosinophils % (Manual) Basophils % (Manual) Nucleated RBC % Seg Neutrophils # Seg Neutrophils # Man Lymphocytes # (Manual) Monocytes # (Manual) Eosinophils # (Manual) Basophils # (Manual) PT INR Fibrinogen dRVVT Confirm Interp Factor V Activity POC ABG pH POC ABG pCO2 POC ABG pO2 ABG pO2 ABG HCO3 ABG Base Excess ABG Hemoglobin Oxyhemoglobin Sodium Potassium Chloride Carbon Dioxide BUN Creatinine Glucose POC Glucose 120 H 123 H 112 H Lactic Acid Calcium Phosphorus Magnesium Direct Bilirubin AST ALT Alkaline Phosphatase Lactate Dehydrogenase Troponin T C-Reactive Protein Total Protein Albumin Prealbumin Triglycerides Cholesterol LDL Cholesterol Direct HDL Cholesterol PTH Intact Urine pH Urine WBC (Auto) Urine Creatinine Urine Total Protein Fluid Total Protein Vancomycin Trough Rheumatoid Factor Complement C4 Miscellaneous Test Crossmatch 01/26/17 01/26/17 01/26/17 04:20 04:20 11:23 WBC 13.1 H RBC 3.28 L Hgb 9.0 L Hct 26.9 L D MCV MCH 27 L MCHC RDW 17.2 H Plt Count Lymph % (Auto) Pope % (Auto) 9.0 H Lymph # Pope # 1.2 H Baso # Seg Neutrophils % 73.1 H Seg Neuts % (Manual) Lymphocytes % (Manual) Monocytes % (Manual) Eosinophils % (Manual) Basophils % (Manual) Nucleated RBC % Seg Neutrophils # 9.6 H Seg Neutrophils # Man Lymphocytes # (Manual) Monocytes # (Manual) Eosinophils # (Manual) Basophils # (Manual) PT INR Fibrinogen dRVVT Confirm Interp Factor V Activity POC ABG pH POC ABG pCO2 POC ABG pO2 ABG pO2 ABG HCO3 ABG Base Excess ABG Hemoglobin Oxyhemoglobin Sodium Potassium Chloride Carbon Dioxide BUN 51 H Creatinine Glucose 117 H POC Glucose 125 H Lactic Acid Calcium Phosphorus Magnesium Direct Bilirubin AST ALT Alkaline Phosphatase Lactate Dehydrogenase Troponin T C-Reactive Protein Total Protein Albumin Prealbumin Triglycerides Cholesterol LDL Cholesterol Direct HDL Cholesterol PTH Intact Urine pH Urine WBC (Auto) Urine Creatinine Urine Total Protein Fluid Total Protein Vancomycin Trough Rheumatoid Factor Complement C4 Miscellaneous Test Crossmatch 01/26/17 01/27/17 01/27/17 17:11 00:30 04:00 WBC RBC Hgb Hct MCV MCH MCHC RDW Plt Count Lymph % (Auto) Pope % (Auto) Lymph # Pope # Baso # Seg Neutrophils % Seg Neuts % (Manual) Lymphocytes % (Manual) Monocytes % (Manual) Eosinophils % (Manual) Basophils % (Manual) Nucleated RBC % Seg Neutrophils # Seg Neutrophils # Man Lymphocytes # (Manual) Monocytes # (Manual) Eosinophils # (Manual) Basophils # (Manual) PT INR Fibrinogen dRVVT Confirm Interp Factor V Activity POC ABG pH POC ABG pCO2 POC ABG pO2 ABG pO2 ABG HCO3 ABG Base Excess ABG Hemoglobin Oxyhemoglobin Sodium Potassium Chloride 97.7 L Carbon Dioxide 21 L BUN 79 H Creatinine 1.7 H D Glucose 112 H POC Glucose 133 H 135 H Lactic Acid Calcium Phosphorus 5.00 H D Magnesium Direct Bilirubin AST ALT Alkaline Phosphatase Lactate Dehydrogenase Troponin T C-Reactive Protein Total Protein Albumin Prealbumin Triglycerides Cholesterol LDL Cholesterol Direct HDL Cholesterol PTH Intact Urine pH Urine WBC (Auto) Urine Creatinine Urine Total Protein Fluid Total Protein Vancomycin Trough Rheumatoid Factor Complement C4 Miscellaneous Test Crossmatch 01/27/17 01/27/17 01/27/17 05:12 12:18 17:25 WBC RBC Hgb Hct MCV MCH MCHC RDW Plt Count Lymph % (Auto) Pope % (Auto) Lymph # Pope # Baso # Seg Neutrophils % Seg Neuts % (Manual) Lymphocytes % (Manual) Monocytes % (Manual) Eosinophils % (Manual) Basophils % (Manual) Nucleated RBC % Seg Neutrophils # Seg Neutrophils # Man Lymphocytes # (Manual) Monocytes # (Manual) Eosinophils # (Manual) Basophils # (Manual) PT INR Fibrinogen dRVVT Confirm Interp Factor V Activity POC ABG pH POC ABG pCO2 POC ABG pO2 ABG pO2 ABG HCO3 ABG Base Excess ABG Hemoglobin Oxyhemoglobin Sodium Potassium Chloride Carbon Dioxide BUN Creatinine Glucose POC Glucose 116 H 153 H 152 H Lactic Acid Calcium Phosphorus Magnesium Direct Bilirubin AST ALT Alkaline Phosphatase Lactate Dehydrogenase Troponin T C-Reactive Protein Total Protein Albumin Prealbumin Triglycerides Cholesterol LDL Cholesterol Direct HDL Cholesterol PTH Intact Urine pH Urine WBC (Auto) Urine Creatinine Urine Total Protein Fluid Total Protein Vancomycin Trough Rheumatoid Factor Complement C4 Miscellaneous Test Crossmatch 01/27/17 01/28/17 01/28/17 23:42 04:00 04:00 WBC 14.4 H RBC 2.82 L Hgb 7.4 L Hct 23.5 L MCV MCH 26 L MCHC RDW 17.6 H Plt Count Lymph % (Auto) 10.2 L Pope % (Auto) 11.0 H Lymph # Pope # 1.6 H Baso # Seg Neutrophils % 78.0 H Seg Neuts % (Manual) Lymphocytes % (Manual) Monocytes % (Manual) Eosinophils % (Manual) Basophils % (Manual) Nucleated RBC % Seg Neutrophils # 11.3 H Seg Neutrophils # Man Lymphocytes # (Manual) Monocytes # (Manual) Eosinophils # (Manual) Basophils # (Manual) PT INR Fibrinogen dRVVT Confirm Interp Factor V Activity POC ABG pH POC ABG pCO2 POC ABG pO2 ABG pO2 ABG HCO3 ABG Base Excess ABG Hemoglobin Oxyhemoglobin Sodium Potassium Chloride Carbon Dioxide BUN 55 H Creatinine 1.3 H Glucose 114 H POC Glucose 121 H Lactic Acid Calcium Phosphorus Magnesium Direct Bilirubin AST ALT Alkaline Phosphatase Lactate Dehydrogenase Troponin T C-Reactive Protein Total Protein Albumin 1.4 L Prealbumin Triglycerides Cholesterol LDL Cholesterol Direct HDL Cholesterol PTH Intact Urine pH Urine WBC (Auto) Urine Creatinine Urine Total Protein Fluid Total Protein Vancomycin Trough Rheumatoid Factor Complement C4 Miscellaneous Test Crossmatch 01/28/17 01/28/17 01/29/17 04:59 12:30 00:02 WBC RBC Hgb Hct MCV MCH MCHC RDW Plt Count Lymph % (Auto) Pope % (Auto) Lymph # Pope # Baso # Seg Neutrophils % Seg Neuts % (Manual) Lymphocytes % (Manual) Monocytes % (Manual) Eosinophils % (Manual) Basophils % (Manual) Nucleated RBC % Seg Neutrophils # Seg Neutrophils # Man Lymphocytes # (Manual) Monocytes # (Manual) Eosinophils # (Manual) Basophils # (Manual) PT INR Fibrinogen dRVVT Confirm Interp Factor V Activity POC ABG pH POC ABG pCO2 POC ABG pO2 ABG pO2 ABG HCO3 ABG Base Excess ABG Hemoglobin Oxyhemoglobin Sodium Potassium Chloride Carbon Dioxide BUN Creatinine Glucose POC Glucose 126 H 119 H 138 H Lactic Acid Calcium Phosphorus Magnesium Direct Bilirubin AST ALT Alkaline Phosphatase Lactate Dehydrogenase Troponin T C-Reactive Protein Total Protein Albumin Prealbumin Triglycerides Cholesterol LDL Cholesterol Direct HDL Cholesterol PTH Intact Urine pH Urine WBC (Auto) Urine Creatinine Urine Total Protein Fluid Total Protein Vancomycin Trough Rheumatoid Factor Complement C4 Miscellaneous Test Crossmatch 01/29/17 01/29/17 01/29/17 04:58 06:15 11:35 WBC RBC Hgb Hct MCV MCH MCHC RDW Plt Count Lymph % (Auto) Pope % (Auto) Lymph # Pope # Baso # Seg Neutrophils % Seg Neuts % (Manual) Lymphocytes % (Manual) Monocytes % (Manual) Eosinophils % (Manual) Basophils % (Manual) Nucleated RBC % Seg Neutrophils # Seg Neutrophils # Man Lymphocytes # (Manual) Monocytes # (Manual) Eosinophils # (Manual) Basophils # (Manual) PT INR Fibrinogen dRVVT Confirm Interp Factor V Activity POC ABG pH POC ABG pCO2 POC ABG pO2 ABG pO2 ABG HCO3 ABG Base Excess ABG Hemoglobin Oxyhemoglobin Sodium Potassium Chloride Carbon Dioxide BUN 85 H Creatinine 1.7 H Glucose 105 H POC Glucose 114 H 110 H Lactic Acid Calcium Phosphorus Magnesium 2.40 H Direct Bilirubin AST ALT Alkaline Phosphatase Lactate Dehydrogenase Troponin T C-Reactive Protein Total Protein Albumin Prealbumin Triglycerides Cholesterol LDL Cholesterol Direct HDL Cholesterol PTH Intact Urine pH Urine WBC (Auto) Urine Creatinine Urine Total Protein Fluid Total Protein Vancomycin Trough Rheumatoid Factor Complement C4 Miscellaneous Test Crossmatch 01/29/17 01/29/17 01/30/17 18:24 23:41 05:12 WBC RBC Hgb Hct MCV MCH MCHC RDW Plt Count Lymph % (Auto) Pope % (Auto) Lymph # Pope # Baso # Seg Neutrophils % Seg Neuts % (Manual) Lymphocytes % (Manual) Monocytes % (Manual) Eosinophils % (Manual) Basophils % (Manual) Nucleated RBC % Seg Neutrophils # Seg Neutrophils # Man Lymphocytes # (Manual) Monocytes # (Manual) Eosinophils # (Manual) Basophils # (Manual) PT INR Fibrinogen dRVVT Confirm Interp Factor V Activity POC ABG pH POC ABG pCO2 POC ABG pO2 ABG pO2 ABG HCO3 ABG Base Excess ABG Hemoglobin Oxyhemoglobin Sodium Potassium Chloride Carbon Dioxide BUN Creatinine Glucose POC Glucose 109 H 134 H 109 H Lactic Acid Calcium Phosphorus Magnesium Direct Bilirubin AST ALT Alkaline Phosphatase Lactate Dehydrogenase Troponin T C-Reactive Protein Total Protein Albumin Prealbumin Triglycerides Cholesterol LDL Cholesterol Direct HDL Cholesterol PTH Intact Urine pH Urine WBC (Auto) Urine Creatinine Urine Total Protein Fluid Total Protein Vancomycin Trough Rheumatoid Factor Complement C4 Miscellaneous Test Crossmatch 01/30/17 01/30/17 01/30/17 11:26 17:43 23:39 WBC RBC Hgb Hct MCV MCH MCHC RDW Plt Count Lymph % (Auto) Pope % (Auto) Lymph # Pope # Baso # Seg Neutrophils % Seg Neuts % (Manual) Lymphocytes % (Manual) Monocytes % (Manual) Eosinophils % (Manual) Basophils % (Manual) Nucleated RBC % Seg Neutrophils # Seg Neutrophils # Man Lymphocytes # (Manual) Monocytes # (Manual) Eosinophils # (Manual) Basophils # (Manual) PT INR Fibrinogen dRVVT Confirm Interp Factor V Activity POC ABG pH POC ABG pCO2 POC ABG pO2 ABG pO2 ABG HCO3 ABG Base Excess ABG Hemoglobin Oxyhemoglobin Sodium Potassium Chloride Carbon Dioxide BUN Creatinine Glucose POC Glucose 135 H 143 H 122 H Lactic Acid Calcium Phosphorus Magnesium Direct Bilirubin AST ALT Alkaline Phosphatase Lactate Dehydrogenase Troponin T C-Reactive Protein Total Protein Albumin Prealbumin Triglycerides Cholesterol LDL Cholesterol Direct HDL Cholesterol PTH Intact Urine pH Urine WBC (Auto) Urine Creatinine Urine Total Protein Fluid Total Protein Vancomycin Trough Rheumatoid Factor Complement C4 Miscellaneous Test Crossmatch 01/31/17 01/31/17 01/31/17 04:00 05:40 11:12 WBC RBC Hgb Hct MCV MCH MCHC RDW Plt Count Lymph % (Auto) Pope % (Auto) Lymph # Pope # Baso # Seg Neutrophils % Seg Neuts % (Manual) Lymphocytes % (Manual) Monocytes % (Manual) Eosinophils % (Manual) Basophils % (Manual) Nucleated RBC % Seg Neutrophils # Seg Neutrophils # Man Lymphocytes # (Manual) Monocytes # (Manual) Eosinophils # (Manual) Basophils # (Manual) PT INR Fibrinogen dRVVT Confirm Interp Factor V Activity POC ABG pH POC ABG pCO2 POC ABG pO2 ABG pO2 ABG HCO3 ABG Base Excess ABG Hemoglobin Oxyhemoglobin Sodium Potassium Chloride Carbon Dioxide BUN 78 H Creatinine 1.5 H Glucose 108 H POC Glucose 123 H Lactic Acid Calcium Phosphorus Magnesium Direct Bilirubin AST ALT Alkaline Phosphatase Lactate Dehydrogenase Troponin T C-Reactive Protein 8.10 H Total Protein Albumin Prealbumin Triglycerides Cholesterol LDL Cholesterol Direct HDL Cholesterol PTH Intact Urine pH Urine WBC (Auto) Urine Creatinine Urine Total Protein Fluid Total Protein Vancomycin Trough Rheumatoid Factor Complement C4 Miscellaneous Test Crossmatch 01/31/17 01/31/17 01/31/17 11:16 17:45 17:50 WBC RBC Hgb Hct MCV MCH MCHC RDW Plt Count Lymph % (Auto) Pope % (Auto) Lymph # Pope # Baso # Seg Neutrophils % Seg Neuts % (Manual) Lymphocytes % (Manual) Monocytes % (Manual) Eosinophils % (Manual) Basophils % (Manual) Nucleated RBC % Seg Neutrophils # Seg Neutrophils # Man Lymphocytes # (Manual) Monocytes # (Manual) Eosinophils # (Manual) Basophils # (Manual) PT INR Fibrinogen dRVVT Confirm Interp Factor V Activity POC ABG pH POC ABG pCO2 POC ABG pO2 ABG pO2 ABG HCO3 ABG Base Excess ABG Hemoglobin Oxyhemoglobin Sodium Potassium Chloride Carbon Dioxide BUN Creatinine Glucose POC Glucose 119 H 111 H Lactic Acid Calcium Phosphorus Magnesium Direct Bilirubin AST ALT Alkaline Phosphatase Lactate Dehydrogenase Troponin T C-Reactive Protein Total Protein Albumin Prealbumin Triglycerides Cholesterol LDL Cholesterol Direct HDL Cholesterol PTH Intact 6.76 L Urine pH Urine WBC (Auto) Urine Creatinine Urine Total Protein Fluid Total Protein Vancomycin Trough Rheumatoid Factor Complement C4 Miscellaneous Test Crossmatch 01/31/17 02/01/17 02/01/17 23:19 05:42 09:24 WBC RBC Hgb Hct MCV MCH MCHC RDW Plt Count Lymph % (Auto) Pope % (Auto) Lymph # Pope # Baso # Seg Neutrophils % Seg Neuts % (Manual) Lymphocytes % (Manual) Monocytes % (Manual) Eosinophils % (Manual) Basophils % (Manual) Nucleated RBC % Seg Neutrophils # Seg Neutrophils # Man Lymphocytes # (Manual) Monocytes # (Manual) Eosinophils # (Manual) Basophils # (Manual) PT INR Fibrinogen dRVVT Confirm Interp Factor V Activity POC ABG pH POC ABG pCO2 POC ABG pO2 ABG pO2 ABG HCO3 ABG Base Excess ABG Hemoglobin Oxyhemoglobin Sodium Potassium Chloride Carbon Dioxide BUN Creatinine Glucose POC Glucose 118 H 122 H Lactic Acid Calcium Phosphorus Magnesium 2.60 H Direct Bilirubin AST ALT Alkaline Phosphatase Lactate Dehydrogenase Troponin T C-Reactive Protein Total Protein Albumin Prealbumin Triglycerides Cholesterol LDL Cholesterol Direct HDL Cholesterol PTH Intact Urine pH Urine WBC (Auto) Urine Creatinine Urine Total Protein Fluid Total Protein Vancomycin Trough Rheumatoid Factor Complement C4 Miscellaneous Test Crossmatch 02/01/17 02/01/17 02/02/17 09:24 12:15 07:40 WBC RBC Hgb Hct MCV MCH MCHC RDW Plt Count Lymph % (Auto) Pope % (Auto) Lymph # Pope # Baso # Seg Neutrophils % Seg Neuts % (Manual) Lymphocytes % (Manual) Monocytes % (Manual) Eosinophils % (Manual) Basophils % (Manual) Nucleated RBC % Seg Neutrophils # Seg Neutrophils # Man Lymphocytes # (Manual) Monocytes # (Manual) Eosinophils # (Manual) Basophils # (Manual) PT INR Fibrinogen dRVVT Confirm Interp Factor V Activity POC ABG pH POC ABG pCO2 POC ABG pO2 ABG pO2 ABG HCO3 ABG Base Excess ABG Hemoglobin Oxyhemoglobin Sodium Potassium Chloride Carbon Dioxide BUN 102 H 72 H Creatinine 1.9 H 1.5 H Glucose 120 H POC Glucose 156 H Lactic Acid Calcium Phosphorus Magnesium Direct Bilirubin AST ALT Alkaline Phosphatase Lactate Dehydrogenase Troponin T C-Reactive Protein Total Protein Albumin Prealbumin Triglycerides Cholesterol LDL Cholesterol Direct HDL Cholesterol PTH Intact Urine pH Urine WBC (Auto) Urine Creatinine Urine Total Protein Fluid Total Protein Vancomycin Trough Rheumatoid Factor Complement C4 Miscellaneous Test Crossmatch 02/02/17 02/02/17 02/03/17 10:16 12:11 00:08 WBC 12.0 H RBC 3.08 L Hgb 8.3 L Hct 25.6 L MCV MCH 27 L MCHC RDW 18.2 H Plt Count Lymph % (Auto) Pope % (Auto) Lymph # Pope # Baso # Seg Neutrophils % 78.4 H Seg Neuts % (Manual) Lymphocytes % (Manual) Monocytes % (Manual) Eosinophils % (Manual) Basophils % (Manual) Nucleated RBC % Seg Neutrophils # 9.4 H Seg Neutrophils # Man Lymphocytes # (Manual) Monocytes # (Manual) Eosinophils # (Manual) Basophils # (Manual) PT INR Fibrinogen dRVVT Confirm Interp Factor V Activity POC ABG pH POC ABG pCO2 POC ABG pO2 ABG pO2 ABG HCO3 ABG Base Excess ABG Hemoglobin Oxyhemoglobin Sodium Potassium Chloride Carbon Dioxide BUN Creatinine Glucose POC Glucose 110 H 120 H Lactic Acid Calcium Phosphorus Magnesium Direct Bilirubin AST ALT Alkaline Phosphatase Lactate Dehydrogenase Troponin T C-Reactive Protein Total Protein Albumin Prealbumin Triglycerides Cholesterol LDL Cholesterol Direct HDL Cholesterol PTH Intact Urine pH Urine WBC (Auto) Urine Creatinine Urine Total Protein Fluid Total Protein Vancomycin Trough Rheumatoid Factor Complement C4 Miscellaneous Test Crossmatch 02/03/17 02/03/17 02/03/17 05:41 07:38 11:31 WBC RBC Hgb Hct MCV MCH MCHC RDW Plt Count Lymph % (Auto) Pope % (Auto) Lymph # Pope # Baso # Seg Neutrophils % Seg Neuts % (Manual) Lymphocytes % (Manual) Monocytes % (Manual) Eosinophils % (Manual) Basophils % (Manual) Nucleated RBC % Seg Neutrophils # Seg Neutrophils # Man Lymphocytes # (Manual) Monocytes # (Manual) Eosinophils # (Manual) Basophils # (Manual) PT INR Fibrinogen dRVVT Confirm Interp Factor V Activity POC ABG pH POC ABG pCO2 POC ABG pO2 ABG pO2 ABG HCO3 ABG Base Excess ABG Hemoglobin Oxyhemoglobin Sodium 134 L Potassium Chloride Carbon Dioxide 21 L BUN 91 H Creatinine 1.9 H Glucose 110 H POC Glucose 119 H 119 H Lactic Acid Calcium 10.3 H Phosphorus Magnesium Direct Bilirubin AST ALT Alkaline Phosphatase Lactate Dehydrogenase Troponin T C-Reactive Protein Total Protein Albumin Prealbumin Triglycerides Cholesterol LDL Cholesterol Direct HDL Cholesterol PTH Intact Urine pH Urine WBC (Auto) Urine Creatinine Urine Total Protein Fluid Total Protein Vancomycin Trough Rheumatoid Factor Complement C4 Miscellaneous Test Crossmatch 02/03/17 02/04/17 02/04/17 17:13 04:00 05:18 WBC RBC Hgb Hct MCV MCH MCHC RDW Plt Count Lymph % (Auto) Pope % (Auto) Lymph # Pope # Baso # Seg Neutrophils % Seg Neuts % (Manual) Lymphocytes % (Manual) Monocytes % (Manual) Eosinophils % (Manual) Basophils % (Manual) Nucleated RBC % Seg Neutrophils # Seg Neutrophils # Man Lymphocytes # (Manual) Monocytes # (Manual) Eosinophils # (Manual) Basophils # (Manual) PT INR Fibrinogen dRVVT Confirm Interp Factor V Activity POC ABG pH POC ABG pCO2 POC ABG pO2 ABG pO2 ABG HCO3 ABG Base Excess ABG Hemoglobin Oxyhemoglobin Sodium 136 L Potassium Chloride Carbon Dioxide BUN 58 H Creatinine 1.3 H Glucose 103 H POC Glucose 133 H 132 H Lactic Acid Calcium Phosphorus 2.00 L D Magnesium 1.60 L Direct Bilirubin AST ALT Alkaline Phosphatase Lactate Dehydrogenase Troponin T C-Reactive Protein Total Protein Albumin Prealbumin Triglycerides Cholesterol LDL Cholesterol Direct HDL Cholesterol PTH Intact Urine pH Urine WBC (Auto) Urine Creatinine Urine Total Protein Fluid Total Protein Vancomycin Trough Rheumatoid Factor Complement C4 Miscellaneous Test Crossmatch 02/05/17 02/05/17 02/05/17 00:01 04:00 06:42 WBC RBC Hgb Hct MCV MCH MCHC RDW Plt Count Lymph % (Auto) Pope % (Auto) Lymph # Pope # Baso # Seg Neutrophils % Seg Neuts % (Manual) Lymphocytes % (Manual) Monocytes % (Manual) Eosinophils % (Manual) Basophils % (Manual) Nucleated RBC % Seg Neutrophils # Seg Neutrophils # Man Lymphocytes # (Manual) Monocytes # (Manual) Eosinophils # (Manual) Basophils # (Manual) PT INR Fibrinogen dRVVT Confirm Interp Factor V Activity POC ABG pH POC ABG pCO2 POC ABG pO2 ABG pO2 ABG HCO3 ABG Base Excess ABG Hemoglobin Oxyhemoglobin Sodium Potassium Chloride Carbon Dioxide BUN 83 H Creatinine 1.8 H Glucose POC Glucose 119 H 110 H Lactic Acid Calcium 10.7 H Phosphorus Magnesium Direct Bilirubin AST ALT Alkaline Phosphatase Lactate Dehydrogenase Troponin T C-Reactive Protein Total Protein Albumin Prealbumin Triglycerides Cholesterol LDL Cholesterol Direct HDL Cholesterol PTH Intact Urine pH Urine WBC (Auto) Urine Creatinine Urine Total Protein Fluid Total Protein Vancomycin Trough Rheumatoid Factor Complement C4 Miscellaneous Test Crossmatch 02/05/17 02/05/17 02/05/17 09:59 11:47 23:44 WBC RBC 2.69 L Hgb 7.2 L Hct 22.5 L MCV MCH 27 L MCHC RDW 18.6 H Plt Count Lymph % (Auto) Pope % (Auto) 9.2 H Lymph # Pope # 0.9 H Baso # Seg Neutrophils % Seg Neuts % (Manual) Lymphocytes % (Manual) Monocytes % (Manual) Eosinophils % (Manual) Basophils % (Manual) Nucleated RBC % Seg Neutrophils # Seg Neutrophils # Man Lymphocytes # (Manual) Monocytes # (Manual) Eosinophils # (Manual) Basophils # (Manual) PT INR Fibrinogen dRVVT Confirm Interp Factor V Activity POC ABG pH POC ABG pCO2 POC ABG pO2 ABG pO2 ABG HCO3 ABG Base Excess ABG Hemoglobin Oxyhemoglobin Sodium Potassium Chloride Carbon Dioxide BUN Creatinine Glucose POC Glucose 130 H 123 H Lactic Acid Calcium Phosphorus Magnesium Direct Bilirubin AST ALT Alkaline Phosphatase Lactate Dehydrogenase Troponin T C-Reactive Protein Total Protein Albumin Prealbumin Triglycerides Cholesterol LDL Cholesterol Direct HDL Cholesterol PTH Intact Urine pH Urine WBC (Auto) Urine Creatinine Urine Total Protein Fluid Total Protein Vancomycin Trough Rheumatoid Factor Complement C4 Miscellaneous Test Crossmatch 02/06/17 02/06/17 02/06/17 04:45 05:58 12:01 WBC RBC Hgb Hct MCV MCH MCHC RDW Plt Count Lymph % (Auto) Pope % (Auto) Lymph # Pope # Baso # Seg Neutrophils % Seg Neuts % (Manual) Lymphocytes % (Manual) Monocytes % (Manual) Eosinophils % (Manual) Basophils % (Manual) Nucleated RBC % Seg Neutrophils # Seg Neutrophils # Man Lymphocytes # (Manual) Monocytes # (Manual) Eosinophils # (Manual) Basophils # (Manual) PT INR Fibrinogen dRVVT Confirm Interp Factor V Activity POC ABG pH POC ABG pCO2 POC ABG pO2 ABG pO2 ABG HCO3 ABG Base Excess ABG Hemoglobin Oxyhemoglobin Sodium Potassium Chloride Carbon Dioxide BUN 101 H Creatinine 2.0 H Glucose 102 H POC Glucose 115 H 132 H Lactic Acid Calcium 10.6 H Phosphorus Magnesium Direct Bilirubin AST ALT Alkaline Phosphatase 199 H Lactate Dehydrogenase Troponin T C-Reactive Protein Total Protein Albumin 1.4 L Prealbumin Triglycerides Cholesterol LDL Cholesterol Direct HDL Cholesterol PTH Intact Urine pH Urine WBC (Auto) Urine Creatinine Urine Total Protein Fluid Total Protein Vancomycin Trough Rheumatoid Factor Complement C4 Miscellaneous Test Crossmatch 02/06/17 02/06/17 02/07/17 17:41 23:32 05:04 WBC RBC Hgb Hct MCV MCH MCHC RDW Plt Count Lymph % (Auto) Pope % (Auto) Lymph # Pope # Baso # Seg Neutrophils % Seg Neuts % (Manual) Lymphocytes % (Manual) Monocytes % (Manual) Eosinophils % (Manual) Basophils % (Manual) Nucleated RBC % Seg Neutrophils # Seg Neutrophils # Man Lymphocytes # (Manual) Monocytes # (Manual) Eosinophils # (Manual) Basophils # (Manual) PT INR Fibrinogen dRVVT Confirm Interp Factor V Activity POC ABG pH POC ABG pCO2 POC ABG pO2 ABG pO2 ABG HCO3 ABG Base Excess ABG Hemoglobin Oxyhemoglobin Sodium Potassium Chloride Carbon Dioxide BUN Creatinine Glucose POC Glucose 134 H 128 H 119 H Lactic Acid Calcium Phosphorus Magnesium Direct Bilirubin AST ALT Alkaline Phosphatase Lactate Dehydrogenase Troponin T C-Reactive Protein Total Protein Albumin Prealbumin Triglycerides Cholesterol LDL Cholesterol Direct HDL Cholesterol PTH Intact Urine pH Urine WBC (Auto) Urine Creatinine Urine Total Protein Fluid Total Protein Vancomycin Trough Rheumatoid Factor Complement C4 Miscellaneous Test Crossmatch 02/07/17 02/07/17 02/07/17 06:30 11:20 17:13 WBC RBC Hgb Hct MCV MCH MCHC RDW Plt Count Lymph % (Auto) Pope % (Auto) Lymph # Pope # Baso # Seg Neutrophils % Seg Neuts % (Manual) Lymphocytes % (Manual) Monocytes % (Manual) Eosinophils % (Manual) Basophils % (Manual) Nucleated RBC % Seg Neutrophils # Seg Neutrophils # Man Lymphocytes # (Manual) Monocytes # (Manual) Eosinophils # (Manual) Basophils # (Manual) PT INR Fibrinogen dRVVT Confirm Interp Factor V Activity POC ABG pH POC ABG pCO2 POC ABG pO2 ABG pO2 ABG HCO3 ABG Base Excess ABG Hemoglobin Oxyhemoglobin Sodium Potassium 3.4 L Chloride Carbon Dioxide BUN 69 H Creatinine 1.5 H Glucose 105 H POC Glucose 117 H 110 H Lactic Acid Calcium Phosphorus Magnesium 1.50 L Direct Bilirubin AST ALT Alkaline Phosphatase Lactate Dehydrogenase Troponin T C-Reactive Protein Total Protein Albumin Prealbumin Triglycerides Cholesterol LDL Cholesterol Direct HDL Cholesterol PTH Intact Urine pH Urine WBC (Auto) Urine Creatinine Urine Total Protein Fluid Total Protein Vancomycin Trough Rheumatoid Factor Complement C4 Miscellaneous Test Crossmatch 02/07/17 02/08/17 02/08/17 20:47 04:00 11:43 WBC RBC Hgb Hct MCV MCH MCHC RDW Plt Count Lymph % (Auto) Pope % (Auto) Lymph # Pope # Baso # Seg Neutrophils % Seg Neuts % (Manual) Lymphocytes % (Manual) Monocytes % (Manual) Eosinophils % (Manual) Basophils % (Manual) Nucleated RBC % Seg Neutrophils # Seg Neutrophils # Man Lymphocytes # (Manual) Monocytes # (Manual) Eosinophils # (Manual) Basophils # (Manual) PT INR Fibrinogen dRVVT Confirm Interp Factor V Activity POC ABG pH POC ABG pCO2 POC ABG pO2 ABG pO2 ABG HCO3 ABG Base Excess ABG Hemoglobin Oxyhemoglobin Sodium Potassium Chloride Carbon Dioxide BUN 86 H Creatinine 1.7 H Glucose POC Glucose 115 H 122 H Lactic Acid Calcium Phosphorus Magnesium 1.60 L Direct Bilirubin AST ALT Alkaline Phosphatase Lactate Dehydrogenase Troponin T C-Reactive Protein Total Protein Albumin Prealbumin Triglycerides Cholesterol LDL Cholesterol Direct HDL Cholesterol PTH Intact Urine pH Urine WBC (Auto) Urine Creatinine Urine Total Protein Fluid Total Protein Vancomycin Trough Rheumatoid Factor Complement C4 Miscellaneous Test Crossmatch 02/08/17 02/09/17 02/09/17 17:36 05:44 11:30 WBC RBC Hgb Hct MCV MCH MCHC RDW Plt Count Lymph % (Auto) Pope % (Auto) Lymph # Pope # Baso # Seg Neutrophils % Seg Neuts % (Manual) Lymphocytes % (Manual) Monocytes % (Manual) Eosinophils % (Manual) Basophils % (Manual) Nucleated RBC % Seg Neutrophils # Seg Neutrophils # Man Lymphocytes # (Manual) Monocytes # (Manual) Eosinophils # (Manual) Basophils # (Manual) PT INR Fibrinogen dRVVT Confirm Interp Factor V Activity POC ABG pH POC ABG pCO2 POC ABG pO2 ABG pO2 ABG HCO3 ABG Base Excess ABG Hemoglobin Oxyhemoglobin Sodium Potassium Chloride Carbon Dioxide BUN Creatinine Glucose POC Glucose 125 H 117 H 120 H Lactic Acid Calcium Phosphorus Magnesium Direct Bilirubin AST ALT Alkaline Phosphatase Lactate Dehydrogenase Troponin T C-Reactive Protein Total Protein Albumin Prealbumin Triglycerides Cholesterol LDL Cholesterol Direct HDL Cholesterol PTH Intact Urine pH Urine WBC (Auto) Urine Creatinine Urine Total Protein Fluid Total Protein Vancomycin Trough Rheumatoid Factor Complement C4 Miscellaneous Test Crossmatch 02/09/17 02/10/17 02/10/17 23:45 05:45 05:50 WBC RBC Hgb Hct MCV MCH MCHC RDW Plt Count Lymph % (Auto) Pope % (Auto) Lymph # Pope # Baso # Seg Neutrophils % Seg Neuts % (Manual) Lymphocytes % (Manual) Monocytes % (Manual) Eosinophils % (Manual) Basophils % (Manual) Nucleated RBC % Seg Neutrophils # Seg Neutrophils # Man Lymphocytes # (Manual) Monocytes # (Manual) Eosinophils # (Manual) Basophils # (Manual) PT INR Fibrinogen dRVVT Confirm Interp Factor V Activity POC ABG pH POC ABG pCO2 POC ABG pO2 ABG pO2 ABG HCO3 ABG Base Excess ABG Hemoglobin Oxyhemoglobin Sodium Potassium Chloride Carbon Dioxide BUN 85 H Creatinine 1.8 H Glucose 109 H POC Glucose 114 H 189 H Lactic Acid Calcium Phosphorus Magnesium 2.50 H Direct Bilirubin AST ALT Alkaline Phosphatase Lactate Dehydrogenase Troponin T C-Reactive Protein Total Protein Albumin Prealbumin Triglycerides Cholesterol LDL Cholesterol Direct HDL Cholesterol PTH Intact Urine pH Urine WBC (Auto) Urine Creatinine Urine Total Protein Fluid Total Protein Vancomycin Trough Rheumatoid Factor Complement C4 Miscellaneous Test Crossmatch 02/10/17 02/10/17 02/10/17 05:51 11:55 17:42 WBC RBC Hgb Hct MCV MCH MCHC RDW Plt Count Lymph % (Auto) Pope % (Auto) Lymph # Pope # Baso # Seg Neutrophils % Seg Neuts % (Manual) Lymphocytes % (Manual) Monocytes % (Manual) Eosinophils % (Manual) Basophils % (Manual) Nucleated RBC % Seg Neutrophils # Seg Neutrophils # Man Lymphocytes # (Manual) Monocytes # (Manual) Eosinophils # (Manual) Basophils # (Manual) PT INR Fibrinogen dRVVT Confirm Interp Factor V Activity POC ABG pH POC ABG pCO2 POC ABG pO2 ABG pO2 ABG HCO3 ABG Base Excess ABG Hemoglobin Oxyhemoglobin Sodium Potassium Chloride Carbon Dioxide BUN Creatinine Glucose POC Glucose 106 H 146 H 132 H Lactic Acid Calcium Phosphorus Magnesium Direct Bilirubin AST ALT Alkaline Phosphatase Lactate Dehydrogenase Troponin T C-Reactive Protein Total Protein Albumin Prealbumin Triglycerides Cholesterol LDL Cholesterol Direct HDL Cholesterol PTH Intact Urine pH Urine WBC (Auto) Urine Creatinine Urine Total Protein Fluid Total Protein Vancomycin Trough Rheumatoid Factor Complement C4 Miscellaneous Test Crossmatch 02/10/17 02/11/17 02/11/17 23:43 04:08 05:34 WBC RBC Hgb Hct MCV MCH MCHC RDW Plt Count Lymph % (Auto) Pope % (Auto) Lymph # Pope # Baso # Seg Neutrophils % Seg Neuts % (Manual) Lymphocytes % (Manual) Monocytes % (Manual) Eosinophils % (Manual) Basophils % (Manual) Nucleated RBC % Seg Neutrophils # Seg Neutrophils # Man Lymphocytes # (Manual) Monocytes # (Manual) Eosinophils # (Manual) Basophils # (Manual) PT INR Fibrinogen dRVVT Confirm Interp Factor V Activity POC ABG pH POC ABG pCO2 POC ABG pO2 ABG pO2 ABG HCO3 ABG Base Excess ABG Hemoglobin Oxyhemoglobin Sodium 136 L Potassium Chloride Carbon Dioxide BUN 65 H Creatinine 1.7 H Glucose 105 H POC Glucose 130 H 113 H Lactic Acid Calcium Phosphorus Magnesium Direct Bilirubin AST ALT Alkaline Phosphatase Lactate Dehydrogenase Troponin T C-Reactive Protein Total Protein Albumin Prealbumin Triglycerides Cholesterol LDL Cholesterol Direct HDL Cholesterol PTH Intact Urine pH Urine WBC (Auto) Urine Creatinine Urine Total Protein Fluid Total Protein Vancomycin Trough Rheumatoid Factor Complement C4 Miscellaneous Test Crossmatch 02/11/17 02/11/17 02/12/17 11:56 23:18 06:19 WBC RBC Hgb Hct MCV MCH MCHC RDW Plt Count Lymph % (Auto) Pope % (Auto) Lymph # Pope # Baso # Seg Neutrophils % Seg Neuts % (Manual) Lymphocytes % (Manual) Monocytes % (Manual) Eosinophils % (Manual) Basophils % (Manual) Nucleated RBC % Seg Neutrophils # Seg Neutrophils # Man Lymphocytes # (Manual) Monocytes # (Manual) Eosinophils # (Manual) Basophils # (Manual) PT INR Fibrinogen dRVVT Confirm Interp Factor V Activity POC ABG pH POC ABG pCO2 POC ABG pO2 ABG pO2 ABG HCO3 ABG Base Excess ABG Hemoglobin Oxyhemoglobin Sodium 136 L Potassium Chloride 97.1 L Carbon Dioxide BUN 93 H Creatinine 2.4 H Glucose POC Glucose 126 H 119 H Lactic Acid Calcium 11.0 H Phosphorus Magnesium Direct Bilirubin AST ALT Alkaline Phosphatase Lactate Dehydrogenase Troponin T C-Reactive Protein Total Protein Albumin Prealbumin Triglycerides Cholesterol LDL Cholesterol Direct HDL Cholesterol PTH Intact Urine pH Urine WBC (Auto) Urine Creatinine Urine Total Protein Fluid Total Protein Vancomycin Trough Rheumatoid Factor Complement C4 Miscellaneous Test Crossmatch 02/12/17 02/12/17 02/12/17 08:00 10:25 11:42 WBC 15.4 H RBC 2.63 L Hgb 6.9 L Hct 22.6 L MCV MCH 26 L MCHC RDW 20.5 H Plt Count Lymph % (Auto) Pope % (Auto) Lymph # Pope # Baso # Seg Neutrophils % Seg Neuts % (Manual) Lymphocytes % (Manual) Monocytes % (Manual) Eosinophils % (Manual) Basophils % (Manual) Nucleated RBC % Seg Neutrophils # Seg Neutrophils # Man Lymphocytes # (Manual) Monocytes # (Manual) Eosinophils # (Manual) Basophils # (Manual) PT INR Fibrinogen dRVVT Confirm Interp Factor V Activity POC ABG pH POC ABG pCO2 POC ABG pO2 ABG pO2 ABG HCO3 ABG Base Excess ABG Hemoglobin Oxyhemoglobin Sodium Potassium Chloride Carbon Dioxide BUN Creatinine Glucose POC Glucose 142 H Lactic Acid Calcium Phosphorus Magnesium Direct Bilirubin AST ALT Alkaline Phosphatase Lactate Dehydrogenase Troponin T C-Reactive Protein Total Protein Albumin Prealbumin Triglycerides Cholesterol LDL Cholesterol Direct HDL Cholesterol PTH Intact Urine pH Urine WBC (Auto) Urine Creatinine Urine Total Protein Fluid Total Protein Vancomycin Trough Rheumatoid Factor Complement C4 Miscellaneous Test Crossmatch See Detail 02/12/17 02/13/17 02/13/17 18:04 00:04 05:00 WBC RBC Hgb Hct MCV MCH MCHC RDW Plt Count Lymph % (Auto) Pope % (Auto) Lymph # Pope # Baso # Seg Neutrophils % Seg Neuts % (Manual) Lymphocytes % (Manual) Monocytes % (Manual) Eosinophils % (Manual) Basophils % (Manual) Nucleated RBC % Seg Neutrophils # Seg Neutrophils # Man Lymphocytes # (Manual) Monocytes # (Manual) Eosinophils # (Manual) Basophils # (Manual) PT INR Fibrinogen dRVVT Confirm Interp Factor V Activity POC ABG pH POC ABG pCO2 POC ABG pO2 ABG pO2 ABG HCO3 ABG Base Excess ABG Hemoglobin Oxyhemoglobin Sodium 134 L Potassium Chloride 96.1 L Carbon Dioxide 20 L BUN 125 H Creatinine 3.0 H Glucose 111 H POC Glucose 135 H 109 H Lactic Acid Calcium 11.3 H Phosphorus Magnesium Direct Bilirubin AST ALT Alkaline Phosphatase Lactate Dehydrogenase Troponin T C-Reactive Protein Total Protein Albumin Prealbumin Triglycerides Cholesterol LDL Cholesterol Direct HDL Cholesterol PTH Intact Urine pH Urine WBC (Auto) Urine Creatinine Urine Total Protein Fluid Total Protein Vancomycin Trough Rheumatoid Factor Complement C4 Miscellaneous Test Crossmatch 02/13/17 02/13/17 05:00 05:28 WBC 11.9 H RBC 2.92 L Hgb 7.8 L Hct 25.2 L MCV MCH 27 L MCHC RDW 19.3 H Plt Count Lymph % (Auto) Pope % (Auto) Lymph # Pope # Baso # Seg Neutrophils % Seg Neuts % (Manual) Lymphocytes % (Manual) Monocytes % (Manual) Eosinophils % (Manual) Basophils % (Manual) Nucleated RBC % Seg Neutrophils # Seg Neutrophils # Man Lymphocytes # (Manual) Monocytes # (Manual) Eosinophils # (Manual) Basophils # (Manual) PT INR Fibrinogen dRVVT Confirm Interp Factor V Activity POC ABG pH POC ABG pCO2 POC ABG pO2 ABG pO2 ABG HCO3 ABG Base Excess ABG Hemoglobin Oxyhemoglobin Sodium Potassium Chloride Carbon Dioxide BUN Creatinine Glucose POC Glucose 124 H Lactic Acid Calcium Phosphorus Magnesium Direct Bilirubin AST ALT Alkaline Phosphatase Lactate Dehydrogenase Troponin T C-Reactive Protein Total Protein Albumin Prealbumin Triglycerides Cholesterol LDL Cholesterol Direct HDL Cholesterol PTH Intact Urine pH Urine WBC (Auto) Urine Creatinine Urine Total Protein Fluid Total Protein Vancomycin Trough Rheumatoid Factor Complement C4 Miscellaneous Test Crossmatch Allied health notes reviewed: RT (Has been on PS 15/, no desaturations today)
[2017-02-13] MEDS: LOPRESSOR IV PRN (18:10)
--- NOTE | 2017-02-13 18:40 | Progress Note ---
Assessment and Plan Assessment and plan: Patient is 46-year-old woman with a history of hypertension, diabetes, asthma, hyperlipidemia, chronic kidney disease and anxiety , who was brought in by family because, she couldn't get her words out, her face was also twisted, she was admitted for acute CVA and accelerated hypertension, she had a hx of poor adherence with her medications, and uncontrolled htn. Patient's SBP on admission was noted be greater than 260. TPA was started but this was discontinued after 5 minutes because her blood pressure became uncontrolled. The TPA was not initiated again because the patient was outside the TPA window. Bowel P Status post cardiac arrest , 11/21/16 on Mechanical ventilation >96 hrs - Received CPR and was resuscitated. - Patient is on amiodarone. Fever - resolved - Patient was initially treated with Abx - s/p R thoracentesis on 11/14, 240cc of serous fluid removed, cx of fluid was negative - Stool negative for C. difficile Severe Sepsis with septic shock - Patient has episode of fever and leukocytosis -Recurrent Leukocytosis, with Meropenem restarted, due to continued sacral decubitus. Surgical wound infection/gram-negative sepsis/candidemia/peritonitis - On TPN JUANITA, ESRD - discussed with Dr Wadsworth - on HD - Cr 1.9 today Acute CVA with infarct - Neurology input appreciated - CT shows continued evolution of left MCA infarct with slight mass effect and edema, and there is no hemorrhage - PRINCE showed hyperdynamic with ef of 75%, neither clot nor septal defect seen - MRA Brain shows near complete occlusion of M2 and M3 of the left MCA - Repeat CT scan done on 09/11, shows stable findings - carotid doppler negative - Echo shows preserved systolic function but does show some left ventricular diastolic dysfunction - continue asa and statin Persistent vegetative state - This patient's needs placement at SNF - She was denied for LTACH Acute hypoxic respiratory failure requiring MV >96hrs - Status post tracheostomy, was on T piece Nosocomial acquired aspiration pneumonia/sepsis/UTI - Finished a course of antibiotics Asthma/COPD exacerbation - ON trach, mechanical ventilation >96 hrs Status Post CVA Bilateral pleural effusion, s/p right thoracentesis A. fib with RVR Diabetes type 2. Continue sliding-scale regular insulin and Accu-Cheks. Hyperlipidemia. Continue statin Nutrition - TPN Anemia requiring multiple transfusions/acute blood loss - currently stable - Check AM labs - Will transfuse if it is below 7 Sacral decubitus ulcer - Status post debridement Disposition. Very poor prognosis. Ethics consult has been placed, will await there input. Cannot reach family, multiple calls placed. Nursing staff on the look out for family and will notify physician. 02/12/17: Persistent vomiting. Patient clinically unchanged since my last visit. CT abdomen obtained, shows possible bowel perforation. I discussed with Surgeon and we individually spoke to family. Patients son and brother do not want any surgery, they will like her comfortable but no hospice and no Resuscitation efforts. Patient made DNR Per family request. Nursing staff notified. 02/13/17: Acute on chronic Hypoxic Respiratory failure Afib with RVR- complicated hy hypotensive episode. Rate ranging 130-160 Peforated Abdomen ESRD Hypophos/hypomag. * Remains critically ill. Continue supportive care * Poor prognosis communicated to family. * No surgical intervention - The high probability of a clinically significant, sudden or life threatening deterioration of the [neurologic, CV] system(s) required my full and direct attention, intervention and personal management. The aggregate critical care time was [35] minutes. This time is in addition to time spent performing reported procedures but includes the following: [x] Data Review and interpretation [x] Patient assessment and monitoring of vital signs [x] Documentation [x] Medication orders and management History Interval history: patient seen and examined, remains unresponsive on the ventilator. multiple bouts of vomiting with any enteral feeding. NGT to suction overnight with over a liter recovered. None from fistula sites. Hospitalist Physical - Physical exam Narrative exam: GEN: Ill appearing, trach, staring into space, not tracking either NECK: SUPPLE, trach in place, ngt in place CVS: regular currently NORMAL S1S2 LUNGS/CHEST: NORMAL CHEST EXPANSION B, GOOD AIR ENTRY B ABD: SOFT, no grimise on abdominal palpation, ostomy bags at two side by side fistula site. non draining, GBS, NO REBOUND OR GUARDING, peg tube in place EXT/SKIN: NO SIGNIFICANT EDEMA BUT WITH UNSTAGEABLE SACRAL DECUB, wound vac inplace MSK: +spontaneous non purposeful movement NEURO: on a ventilator and unresponsive despite being off sedation PSY: Comatose, - Constitutional Vitals: Temp Pulse Resp BP Pulse Ox 98.6 F 165 H 17 109/63 100 02/13/17 16:00 02/13/17 18:10 02/13/17 18:00 02/13/17 18:10 02/13/17 18:00 General appearance: Present: no acute distress, well-nourished Results - Labs CBC & Chem 7: 02/14/17 08:08 02/14/17 08:08 Labs: Laboratory Last Values WBC 11.9 K/mm3 (4.5-11.0) H 02/13/17 05:00 RBC 2.92 M/mm3 (3.65-5.03) L 02/13/17 05:00 Hgb 7.8 gm/dl (10.1-14.3) L 02/13/17 05:00 Hct 25.2 % (30.3-42.9) L 02/13/17 05:00 MCV 86 fl (79-97) 02/13/17 05:00 MCH 27 pg (28-32) L 02/13/17 05:00 MCHC 31 % (30-34) 02/13/17 05:00 RDW 19.3 % (13.2-15.2) H 02/13/17 05:00 Plt Count 302 K/mm3 (140-440) 02/13/17 05:00 Lymph % (Auto) 19.3 % (13.4-35.0) 02/05/17 09:59 [place] % (Auto) 9.2 % (0.0-7.3) H 02/05/17 09:59 Eos % (Auto) 1.8 % (0.0-4.3) 02/05/17 09:59 Baso % (Auto) 0.5 % (0.0-1.8) 02/05/17 09:59 Lymph # 2.0 K/mm3 (1.2-5.4) 02/05/17 09:59 [place] # 0.9 K/mm3 (0.0-0.8) H 02/05/17 09:59 Eos # 0.2 K/mm3 (0.0-0.4) 02/05/17 09:59 Baso # 0.0 K/mm3 (0.0-0.1) 02/05/17 09:59 Add Manual Diff Complete 12/19/16 05:02 Total Counted 100 12/19/16 05:02 Seg Neutrophils % 69.2 % (40.0-70.0) 02/05/17 09:59 Seg Neuts % (Manual) 64.0 % (40.0-70.0) 12/19/16 05:02 Band Neutrophils % 15.0 % 12/19/16 05:02 Lymphocytes % (Manual) 13.0 % (13.4-35.0) L 12/19/16 05:02 Reactive Lymphs % (Man) 0 % 12/19/16 05:02 Monocytes % (Manual) 7.0 % (0.0-7.3) 12/19/16 05:02 Eosinophils % (Manual) 0 % (0.0-4.3) 12/19/16 05:02 Basophils % (Manual) 1.0 % (0.0-1.8) 12/19/16 05:02 Metamyelocytes % 0 % 12/19/16 05:02 Myelocytes % 0 % 12/19/16 05:02 Promyelocytes % 0 % 12/19/16 05:02 Blast Cells % 0 % 12/19/16 05:02 Nucleated RBC % 1.0 % (0.0-0.9) H 12/19/16 05:02 Seg Neutrophils # 7.1 K/mm3 (1.8-7.7) 02/05/17 09:59 Seg Neutrophils # Man 12.9 K/mm3 (1.8-7.7) H 12/19/16 05:02 Band Neutrophils # 3.0 K/mm3 12/19/16 05:02 Lymphocytes # (Manual) 2.6 K/mm3 (1.2-5.4) 12/19/16 05:02 Abs React Lymphs (Man) 0.0 K/mm3 12/19/16 05:02 Monocytes # (Manual) 1.4 K/mm3 (0.0-0.8) H 12/19/16 05:02 Eosinophils # (Manual) 0.0 K/mm3 (0.0-0.4) 12/19/16 05:02 Basophils # (Manual) 0.2 K/mm3 (0.0-0.1) H 12/19/16 05:02 Metamyelocytes # 0.0 K/mm3 12/19/16 05:02 Myelocytes # 0.0 K/mm3 12/19/16 05:02 Promyelocytes # 0.0 K/mm3 12/19/16 05:02 Blast Cells # 0.0 K/mm3 12/19/16 05:02 Pathologist Review 09/13/16 04:00 WBC Morphology Not Reportable 12/19/16 05:02 Hypersegmented Neuts Not Reportable 12/19/16 05:02 Hyposegmented Neuts Not Reportable 12/19/16 05:02 Hypogranular Neuts Not Reportable 12/19/16 05:02 Smudge Cells Not Reportable 12/19/16 05:02 Toxic Granulation Not Reportable 12/19/16 05:02 Toxic Vacuolation Not Reportable 12/19/16 05:02 Dohle Bodies Not Reportable 12/19/16 05:02 Pelger-Huet Anomaly Not Reportable 12/19/16 05:02 Jasmina Rods Not Reportable 12/19/16 05:02 Platelet Estimate Consistent w auto 12/19/16 05:02 Clumped Platelets Not Reportable 12/19/16 05:02 Plt Clumps, EDTA Not Reportable 12/19/16 05:02 Large Platelets Not Reportable 12/19/16 05:02 Giant Platelets Not Reportable 12/19/16 05:02 Platelet Satelliting Not Reportable 12/19/16 05:02 Plt Morphology Comment Not Reportable 12/19/16 05:02 RBC Morphology Not Reportable 12/19/16 05:02 Dimorphic RBCs Not Reportable 12/19/16 05:02 Polychromasia Not Reportable 12/19/16 05:02 Hypochromasia Not Reportable 12/19/16 05:02 Poikilocytosis Not Reportable 12/19/16 05:02 Anisocytosis Not Reportable 12/19/16 05:02 Microcytosis Not Reportable 12/19/16 05:02 Macrocytosis Not Reportable 12/19/16 05:02 Spherocytes Not Reportable 12/19/16 05:02 Pappenheimer Bodies Not Reportable 12/19/16 05:02 Sickle Cells Not Reportable 12/19/16 05:02 Target Cells Few 12/19/16 05:02 Tear Drop Cells Not Reportable 12/19/16 05:02 Ovalocytes Not Reportable 12/19/16 05:02 Stomatocytes Rare 12/03/16 04:00 Helmet Cells Not Reportable 12/19/16 05:02 [place] Bodies Not Reportable 12/19/16 05:02 [place] Rings Not Reportable 12/19/16 05:02 [place] Cells Not Reportable 12/19/16 05:02 Bite Cells Not Reportable 12/19/16 05:02 Crenated Cell Not Reportable 12/19/16 05:02 Elliptocytes Not Reportable 12/19/16 05:02 Acanthocytes (Spur) Not Reportable 12/19/16 05:02 Rouleaux Not Reportable 12/19/16 05:02 Hemoglobin C Crystals Not Reportable 12/19/16 05:02 Schistocytes Not Reportable 12/19/16 05:02 Malaria parasites Not Reportable 12/19/16 05:02 ESR > 140.0 mm/Hr (0-20) 09/08/16 11:48 Jun Bodies Not Reportable 12/19/16 05:02 Hem Pathologist Commnt No 12/19/16 05:02 PT 15.4 Sec. (12.2-14.9) H 01/13/17 15:50 INR 1.16 (0.87-1.13) H 01/13/17 15:50 APTT 33.0 Sec. (24.2-36.6) 10/09/16 03:45 Thrombin Time 16.8 Sec. (15.1-19.6) 09/03/16 00:10 Fibrinogen 750 mg/dl (211-480) H 09/08/16 11:48 Lupus Anticoagulant see below 09/12/16 09:59 LA PTT Baseline See scanned report 09/12/16 09:59 dRVVT Confirm Interp Positive (Negative) H 09/12/16 09:59 dRVVT Screen 50:50 See scanned report 09/12/16 09:59 dRVVT Mix Interpret See scanned report 09/12/16 09:59 Protein C Antigen 122 % (70-140) 09/08/16 15:35 Free Protein S 97 % normal (50-147) 09/08/16 15:35 Total Protein S 109 % (70-140) 09/08/16 15:35 Antithrombin III Ag 100 % (80-120) 09/08/16 15:35 Heparin Anti-Xa, Unfract Negative (Negative) 09/29/16 13:35 Factor V Activity 182 % (65-150) H 09/08/16 15:35 POC ABG pH 7.436 (7.35-7.45) 01/20/17 12: ABG pH 7.450 pH Units (7.350-7.450) 12/05/16 Unknown POC ABG pCO2 35.3 (35-45) 01/20/17 12: ABG pCO2 29.6 mm Hg 12/05/16 Unknown POC ABG pO2 70 (80-105) L 01/20/17 12: ABG pO2 75.2 mm Hg (80.0-90.0) L 12/05/16 Unknown POC ABG HCO3 23.8 01/20/17 12: ABG HCO3 20.1 mmol/L (20.0-26.0) 12/05/16 Unknown POC ABG Total CO2 25 01/20/17 12:17 POC ABG O2 Sat 94 01/20/17 12: ABG O2 Saturation 96.8 % (95.0-99.0) 12/05/16 Unknown ABG O2 Content 9.9 (0.0-44) 12/05/16 Unknown POC ABG Base Excess 0 01/20/17 12: ABG Base Excess -3.4 mmol/L (-2.0-3.0) L 12/05/16 Unknown ABG Hemoglobin 7.4 gm/dl (12.0-16.0) L 12/05/16 Unknown ABG Carboxyhemoglobin 1.8 % (0.0-5.0) 12/05/16 Unknown ABG Methemoglobin 0.6 % (0.0-1.5) 12/05/16 Unknown Oxyhemoglobin 94.5 % (95.0-99.0) L 12/05/16 Unknown FiO2 30 % 01/20/17 12:17 Sodium 134 mmol/L (137-145) L 02/13/17 05:00 Potassium 4.9 mmol/L (3.6-5.0) 02/13/17 05:00 Chloride 96.1 mmol/L (98-107) L 02/13/17 05:00 Carbon Dioxide 20 mmol/L (22-30) L 02/13/17 05:00 Anion Gap 23 mmol/L 02/13/17 05:00 BUN 125 mg/dL (7-17) H 02/13/17 05:00 Creatinine 3.0 mg/dL (0.7-1.2) H 02/13/17 05:00 Estimated GFR 20 ml/min 02/13/17 05:00 BUN/Creatinine Ratio 42 % 02/13/17 05:00 Glucose 111 mg/dL (65-100) H 02/13/17 05:00 POC Glucose 124 (70-105) H 02/13/17 05:28 Osmolality 351 Mosm/kg 09/16/16 11:47 Lactic Acid 2.30 mmol/L (0.7-2.0) H* 01/09/17 08:22 Calcium 11.3 mg/dL (8.4-10.2) H 02/13/17 05:00 Phosphorus 3.70 mg/dL (2.5-4.5) 02/13/17 05:00 Magnesium 2.10 mg/dL (1.7-2.3) 02/12/17 06:19 Total Bilirubin 0.40 mg/dL (0.1-1.2) 02/06/17 04:45 Direct Bilirubin 0.2 mg/dL (0-0.2) 01/28/17 04:00 Indirect Bilirubin 0.3 mg/dL 01/28/17 04:00 AST 29 units/L (5-40) 02/06/17 04:45 ALT 26 units/L (7-56) 02/06/17 04:45 Alkaline Phosphatase 199 units/L (35-129) H 02/06/17 04:45 Ammonia 27.0 umol/L (25-60) 09/07/16 08:37 Lactate Dehydrogenase 170 units/L (91-180) 01/13/17 15:50 Total Creatine Kinase 121 units/L (30-135) 09/29/16 20:12 CK-MB (CK-2) < 1.0 ng/mL (0.0-4.0) 09/29/16 20:12 CK-MB (CK-2) Rel Index 0.8 (0-4) 09/29/16 20:12 Troponin T 0.204 ng/mL (0.00-0.029) H* 09/29/16 20:12 C-Reactive Protein 8.10 mg/dL (0.00-1.30) H 01/31/17 11:12 Total Protein 6.7 g/dL (6.3-8.2) 02/06/17 04:45 Albumin 1.4 g/dL (3.9-5) L 02/06/17 04:45 Albumin/Globulin Ratio 0.3 % 02/06/17 04:45 Prealbumin 0.110 g/L (0.200-0.400) L 12/29/16 05:15 Triglycerides 55 mg/dL (2-149) 02/06/17 04:45 Cholesterol 31 mg/dL (50-199) L 09/29/16 20:12 LDL Cholesterol Direct 4 mg/dL (50-130) L 09/29/16 20:12 HDL Cholesterol 3 mg/dL (40-59) L 09/29/16 20:12 Cholesterol/HDL Ratio 10.33 % 09/29/16 20:12 Angiotensin Convert Enz See scanned report 09/08/16 11:48 Renin 0.99 ng/mL/h (0.25-5.82) 10/07/16 10:56 Aldosterone <1 ng/dL () 10/07/16 10:56 Aldosterone/Renin Dir see below 10/07/16 10:56 Serotonin Release Assay See scanned report 09/29/16 13:35 TSH 1.010 mlU/mL (0.270-4.200) 09/07/16 08:37 HCG, Qual Negative (Negative) 09/03/16 00:10 PTH Intact 6.76 pg/mL (15-65) L 01/31/17 17:50 Total Cortisol 18.2 mcg/dL () 02/02/17 20:09 Urine Color Yellow (Yellow) 11/05/16 13:09 Urine Turbidity Clear (Clear) 11/05/16 13:09 Urine pH 9.0 (5.0-7.0) H 11/05/16 13:09 Ur Specific [place] 1.011 (1.003-1.030) 11/05/16 13:09 Urine Protein 100 mg/dl mg/dL (Negative) 11/05/16 13:09 Urine Glucose (UA) Neg mg/dL (Negative) 11/05/16 13:09 Urine Ketones Neg mg/dL (Negative) 11/05/16 13:09 Urine Blood Neg (Negative) 11/05/16 13:09 Urine Nitrite Neg (Negative) 11/05/16 13:09 Urine Bilirubin Neg (Negative) 11/05/16 13:09 Urine Urobilinogen < 2.0 mg/dL (<2.0) 11/05/16 13:09 Ur Leukocyte Esterase Neg (Negative) 11/05/16 13:09 Urine WBC (Auto) 4.0 /HPF (0.0-6.0) 11/05/16 13:09 Urine RBC (Auto) 1.0 /HPF (0.0-6.0) 11/05/16 13:09 U Epithel Cells (Auto) 1.0 /HPF (0-13.0) 10/07/16 18:30 Urine Bacteria (Auto) 4+ /HPF (Negative) 11/05/16 13:09 Urine WBC Clumps 2+ /HPF 09/07/16 02:47 Hyaline Casts 4 /LPF 09/07/16 02:47 Urine Mucus Few /HPF 10/07/16 18:30 Urine Yeast (Budding) 3+ /HPF 10/07/16 18:30 Urine Eosinophils None seen (None Seen) 09/07/16 16:00 Urine Total Volume 950 11/12/16 10:18 Urine Creatinine 19.7 mg/dL (0.1-20.0) 11/12/16 10:18 Height (in) 65.0 inches 11/12/16 10:18 Weight (lb) 181.0 lbs 11/12/16 10:18 Creatinine Clearance 5 11/12/16 10:18 Urine Sodium 36 mEq/L 09/16/16 19:19 Urine Total Protein 16 mg/dL (5-11.8) H 09/16/16 19:19 Fluid Type Pleural 01/13/17 12:10 Fluid Color Yellow 01/13/17 12:10 Fluid Appearance Hazy 01/13/17 12:10 Fluid WBC 182 /mm3 01/13/17 12:10 Fluid RBC 41 /mm3 01/13/17 12:10 Fluid Seg Neutrophils 85.0 % 01/13/17 12:10 Fluid Lymphocytes 8.0 % 01/13/17 12:10 Fluid Reactive Lymphs 0 % 01/13/17 12:10 Fluid Monocytes 6.0 % 01/13/17 12:10 Fluid Eosinophils 1.0 % 01/13/17 12:10 Fluid Basophils 0 % 01/13/17 12:10 Fluid Total Protein 3.0 (15.0-45.0) L 01/13/17 12:10 Fluid LDH 1322 01/13/17 12:10 Fluid Comment Diff performed 01/13/17 12:10 Vancomycin Trough 2.3 ug/mL (5.0-20.0) L 09/21/16 13:00 Random Vancomycin 16.5 ug/mL (0-40.0) 11/28/16 09:45 Urine Opiates Screen Presumptive negative 09/03/16 15:11 Urine Methadone Screen Presumptive positive 09/03/16 15:11 Ur Barbiturates Screen Presumptive positive 09/03/16 15:11 Ur Phencyclidine Scrn Presumptive negative 09/03/16 15:11 Ur Amphetamines Screen Presumptive negative 09/03/16 15:11 U Benzodiazepines Scrn Presumptive negative 09/03/16 15:11 Urine Cocaine Screen Presumptive negative 09/03/16 15:11 U Marijuana (THC) Screen Presumptive positive 09/03/16 15:11 Drugs of Abuse Note Disclamer 09/03/16 15:11 Rheumatoid Factor 24 IU/ml (0-13) H 09/08/16 11:48 SAHIL Screen Negative (Negative) 09/07/16 09:20 Proteinase 3 (PR3) Ab <1.0 AI (<1.0) 09/07/16 09:20 Myeloperoxidase Ab <1.0 AI (<1.0) 09/07/16 09:20 Sjogren's Antibody <1.0 AI (<1.0) 09/08/16 15:35 Scl-70 Scleroderma Ab <1.0 AI (<1.0) 09/08/16 15:35 Centromere B Antibody <1.0 AI (<1.0) 09/08/16 12:02 Heparin-induced Plt Ab Negative (Negative) 09/29/16 13:35 UF Heparin High Dose 11 % Release 09/29/16 13:35 SUDHIR UFH Low Dose 0.1 6 % Release 09/29/16 13:35 SUDHIR UFH Low Dose 0.5 8 % Release 09/29/16 13:35 Cardiolipid IgG Ab <14 GPL (<=14) 09/12/16 09:59 Cardiolipid IgA Ab <11 APL (<=11) 09/12/16 09:59 Cardiolipid IgM Ab <12 MPL (<=12) 09/12/16 09:59 Complement C3 148 mg/dL (90-180) 09/07/16 09:20 Complement C4 58 mg/dL (16-47) H 09/07/16 09:20 RPR Nonreactive (Nonreactive) 09/08/16 11:48 Hepatitis A IgM Ab Non-reactive (NonReactive) 09/24/16 14:40 Hep Bs Antigen Non-reactive (Negative) 09/24/16 14:40 Hep B Core IgM Ab Non-reactive (NonReactive) 09/24/16 14:40 Hepatitis C Antibody Non-reactive (NonReactive) 09/24/16 14:40 HIV 1&2 Antibody Rapid Non react (Non React) 09/08/16 11:48 HIV P24 Antigen Non react (Non React) 09/08/16 11:48 Miscellaneous Test Flexitest 1 H 01/09/17 18:45 Blood Type A POSITIVE 02/12/17 10:25 Antibody Screen Negative 02/12/17 10:25 DELORIS Antibody Screen Negative 11/24/16 11:20 Crossmatch See Detail 02/12/17 10:25
[2017-02-13] MEDS: DILAUDID IV PRN (19:30)
[2017-02-13] MEDS ORDERED: INTRALIPID 20% 250 ML IV SCH (20:00)
[2017-02-13] MEDS ORDERED: TPN ADULT IV SCH (20:00)
[2017-02-13] MEDS ORDERED: NACL 0.9% 1000 ML 1,000 ML ONE (20:00)
[2017-02-13] MEDS ORDERED: NACL 0.9% 1000 ML 1,000 ML IV ONE (20:52)
[2017-02-13] MEDS ORDERED: NACL 0.9% 250ML 250 ML IV ONE (20:53)
[2017-02-13] MEDS: NACL 0.9% IV SCH (21:13)
[2017-02-13] MEDS: TAZICEF IV SCH (21:13)
[2017-02-13] MEDS: LEVOPHED DRIP 4 MG/NS 250 ML 4 MG/250 ML BAG IV SCH (22:24)
[2017-02-14] MEDS: HumuLIN R SUB-Q SCH ×5 (01:27→22:00)
[2017-02-14] MEDS: ROBINUL PO SCH ×2 (01:28→10:23)
[2017-02-14] MEDS: HEPARIN SUB-Q SCH ×3 (03:18→22:35)
[2017-02-14] MEDS: REGLAN IV SCH ×3 (06:32→22:35)
[2017-02-14 08:28] LABS: Hematocrit 26.3 % (30.3-42.9); Hemoglobin 8.1 gm/dl (10.1-14.3); Mean Corpuscular HGB Conc 31 % (30-34); Mean Corpuscular Hemoglobin 28 pg (28-32); Mean Corpuscular Volume 89 fl (79-97); Platelet Count 311 K/mm3 (140-440); Red Blood Count 2.97 M/mm3 (3.65-5.03); Red Cell Distribution Width 19.3 % (13.2-15.2)
[2017-02-14 08:37] LABS: Calcium 10.2 mg/dL (8.4-10.2)
[2017-02-14] MEDS: DUONEB *Not for PRN Use IH SCH ×3 (08:54→21:46)
[2017-02-14] MEDS ORDERED: MAGNESIUM SULFATE IV ONE (09:23)
--- NOTE | 2017-02-14 09:30 | Progress Note ---
Assessment and Plan Assessment and plan: Patient is 46-year-old woman with a history of hypertension, diabetes, asthma, hyperlipidemia, chronic kidney disease and anxiety , who was brought in by family because, she couldn't get her words out, her face was also twisted, she was admitted for acute CVA and accelerated hypertension, she had a hx of poor adherence with her medications, and uncontrolled htn. Patient's SBP on admission was noted be greater than 260. TPA was started but this was discontinued after 5 minutes because her blood pressure became uncontrolled. The TPA was not initiated again because the patient was outside the TPA window. Bowel P Status post cardiac arrest , 11/21/16 on Mechanical ventilation >96 hrs - Received CPR and was resuscitated. - Patient is on amiodarone. Fever - resolved - Patient was initially treated with Abx - s/p R thoracentesis on 11/14, 240cc of serous fluid removed, cx of fluid was negative - Stool negative for C. difficile Severe Sepsis with septic shock - Patient has episode of fever and leukocytosis -Recurrent Leukocytosis, with Meropenem restarted, due to continued sacral decubitus. Surgical wound infection/gram-negative sepsis/candidemia/peritonitis - On TPN JUANITA, ESRD - discussed with Dr Wadsworth - on HD - Cr 1.9 today Acute CVA with infarct - Neurology input appreciated - CT shows continued evolution of left MCA infarct with slight mass effect and edema, and there is no hemorrhage - PRINCE showed hyperdynamic with ef of 75%, neither clot nor septal defect seen - MRA Brain shows near complete occlusion of M2 and M3 of the left MCA - Repeat CT scan done on 09/11, shows stable findings - carotid doppler negative - Echo shows preserved systolic function but does show some left ventricular diastolic dysfunction - continue asa and statin Persistent vegetative state - This patient's needs placement at SNF - She was denied for LTACH Acute hypoxic respiratory failure requiring MV >96hrs - Status post tracheostomy, was on T piece Nosocomial acquired aspiration pneumonia/sepsis/UTI - Finished a course of antibiotics Asthma/COPD exacerbation - ON trach, mechanical ventilation >96 hrs Status Post CVA Bilateral pleural effusion, s/p right thoracentesis A. fib with RVR Diabetes type 2. Continue sliding-scale regular insulin and Accu-Cheks. Hyperlipidemia. Continue statin Nutrition - TPN Anemia requiring multiple transfusions/acute blood loss - currently stable - Check AM labs - Will transfuse if it is below 7 Sacral decubitus ulcer - Status post debridement Disposition. Very poor prognosis. Ethics consult has been placed, will await there input. Cannot reach family, multiple calls placed. Nursing staff on the look out for family and will notify physician. 02/12/17: Persistent vomiting. Patient clinically unchanged since my last visit. CT abdomen obtained, shows possible bowel perforation. I discussed with Surgeon and we individually spoke to family. Patients son and brother do not want any surgery, they will like her comfortable but no hospice and no Resuscitation efforts. Patient made DNR Per family request. Nursing staff notified. 02/14/17: Acute on chronic Hypoxic Respiratory failure Afib with RVR- complicated hy hypotensive episode. Rate ranging 130-160 Peforated Abdomen ESRD SHOCK LIKE STATE OVERNIGHT, REQUIRING BOLUS. * Reduce pain medication use * complex infectious process cannot be ruled out, will continue to monitor. Doubt utility of Abx at this time considering lack of curatvie measures. will discuss with ID. Hypophos/hypomag. * Resplace. * Remains critically ill. Continue supportive care * Poor prognosis communicated to family. * No surgical intervention - The high probability of a clinically significant, sudden or life threatening deterioration of the [neurologic, CV] system(s) required my full and direct attention, intervention and personal management. The aggregate critical care time was [35] minutes. This time is in addition to time spent performing reported procedures but includes the following: [x] Data Review and interpretation [x] Patient assessment and monitoring of vital signs [x] Documentation [x] Medication orders and management History Interval history: patient seen and examined, remains unresponsive on the ventilator. multiple bouts of vomiting with any enteral feeding. NGT to suction overnight with over a liter recovered. None from fistula sites. Hospitalist Physical - Physical exam Narrative exam: GEN: Ill appearing, trach, staring into space, not tracking either NECK: SUPPLE, trach in place, ngt in place CVS:Irregular Irregular with tachycardia LUNGS/CHEST: NORMAL CHEST EXPANSION B, GOOD AIR ENTRY B, tachypena ABD: SOFT, no grimise on abdominal palpation, Ostomy bags at two side by side fistula site. GBS, NO REBOUND OR GUARDING, peg tube in place EXT/SKIN: NO SIGNIFICANT EDEMA BUT WITH UNSTAGEABLE SACRAL DECUB, wound vac inplace MSK: +spontaneous non purposeful movement NEURO: on a ventilator and unresponsive despite being off sedation PSY: Comatose, - Constitutional Vitals: Temp Pulse Resp BP Pulse Ox 97.9 F 135 H 41 H 107/58 94 02/14/17 09:26 02/14/17 09:00 02/14/17 09:00 02/14/17 09:00 02/14/17 09:00 General appearance: Present: no acute distress, well-nourished Results - Labs CBC & Chem 7: 02/14/17 08:08 02/14/17 08:08 Labs: Laboratory Last Values WBC 15.2 K/mm3 (4.5-11.0) H 02/14/17 08:08 RBC 2.97 M/mm3 (3.65-5.03) L 02/14/17 08:08 Hgb 8.1 gm/dl (10.1-14.3) L 02/14/17 08:08 Hct 26.3 % (30.3-42.9) L 02/14/17 08:08 MCV 89 fl (79-97) 02/14/17 08:08 MCH 28 pg (28-32) 02/14/17 08:08 MCHC 31 % (30-34) 02/14/17 08:08 RDW 19.3 % (13.2-15.2) H 02/14/17 08:08 Plt Count 311 K/mm3 (140-440) 02/14/17 08:08 Lymph % (Auto) 19.3 % (13.4-35.0) 02/05/17 09:59 [place] % (Auto) 9.2 % (0.0-7.3) H 02/05/17 09:59 Eos % (Auto) 1.8 % (0.0-4.3) 02/05/17 09:59 Baso % (Auto) 0.5 % (0.0-1.8) 02/05/17 09:59 Lymph # 2.0 K/mm3 (1.2-5.4) 02/05/17 09:59 [place] # 0.9 K/mm3 (0.0-0.8) H 02/05/17 09:59 Eos # 0.2 K/mm3 (0.0-0.4) 02/05/17 09:59 Baso # 0.0 K/mm3 (0.0-0.1) 02/05/17 09:59 Add Manual Diff Complete 12/19/16 05:02 Total Counted 100 12/19/16 05:02 Seg Neutrophils % 69.2 % (40.0-70.0) 02/05/17 09:59 Seg Neuts % (Manual) 64.0 % (40.0-70.0) 12/19/16 05:02 Band Neutrophils % 15.0 % 12/19/16 05:02 Lymphocytes % (Manual) 13.0 % (13.4-35.0) L 12/19/16 05:02 Reactive Lymphs % (Man) 0 % 12/19/16 05:02 Monocytes % (Manual) 7.0 % (0.0-7.3) 12/19/16 05:02 Eosinophils % (Manual) 0 % (0.0-4.3) 12/19/16 05:02 Basophils % (Manual) 1.0 % (0.0-1.8) 12/19/16 05:02 Metamyelocytes % 0 % 12/19/16 05:02 Myelocytes % 0 % 12/19/16 05:02 Promyelocytes % 0 % 12/19/16 05:02 Blast Cells % 0 % 12/19/16 05:02 Nucleated RBC % 1.0 % (0.0-0.9) H 12/19/16 05:02 Seg Neutrophils # 7.1 K/mm3 (1.8-7.7) 02/05/17 09:59 Seg Neutrophils # Man 12.9 K/mm3 (1.8-7.7) H 12/19/16 05:02 Band Neutrophils # 3.0 K/mm3 12/19/16 05:02 Lymphocytes # (Manual) 2.6 K/mm3 (1.2-5.4) 12/19/16 05:02 Abs React Lymphs (Man) 0.0 K/mm3 12/19/16 05:02 Monocytes # (Manual) 1.4 K/mm3 (0.0-0.8) H 12/19/16 05:02 Eosinophils # (Manual) 0.0 K/mm3 (0.0-0.4) 12/19/16 05:02 Basophils # (Manual) 0.2 K/mm3 (0.0-0.1) H 12/19/16 05:02 Metamyelocytes # 0.0 K/mm3 12/19/16 05:02 Myelocytes # 0.0 K/mm3 12/19/16 05:02 Promyelocytes # 0.0 K/mm3 12/19/16 05:02 Blast Cells # 0.0 K/mm3 12/19/16 05:02 Pathologist Review 09/13/16 04:00 WBC Morphology Not Reportable 12/19/16 05:02 Hypersegmented Neuts Not Reportable 12/19/16 05:02 Hyposegmented Neuts Not Reportable 12/19/16 05:02 Hypogranular Neuts Not Reportable 12/19/16 05:02 Smudge Cells Not Reportable 12/19/16 05:02 Toxic Granulation Not Reportable 12/19/16 05:02 Toxic Vacuolation Not Reportable 12/19/16 05:02 Dohle Bodies Not Reportable 12/19/16 05:02 Pelger-Huet Anomaly Not Reportable 12/19/16 05:02 Jasmina Rods Not Reportable 12/19/16 05:02 Platelet Estimate Consistent w auto 12/19/16 05:02 Clumped Platelets Not Reportable 12/19/16 05:02 Plt Clumps, EDTA Not Reportable 12/19/16 05:02 Large Platelets Not Reportable 12/19/16 05:02 Giant Platelets Not Reportable 12/19/16 05:02 Platelet Satelliting Not Reportable 12/19/16 05:02 Plt Morphology Comment Not Reportable 12/19/16 05:02 RBC Morphology Not Reportable 12/19/16 05:02 Dimorphic RBCs Not Reportable 12/19/16 05:02 Polychromasia Not Reportable 12/19/16 05:02 Hypochromasia Not Reportable 12/19/16 05:02 Poikilocytosis Not Reportable 12/19/16 05:02 Anisocytosis Not Reportable 12/19/16 05:02 Microcytosis Not Reportable 12/19/16 05:02 Macrocytosis Not Reportable 12/19/16 05:02 Spherocytes Not Reportable 12/19/16 05:02 Pappenheimer Bodies Not Reportable 12/19/16 05:02 Sickle Cells Not Reportable 12/19/16 05:02 Target Cells Few 12/19/16 05:02 Tear Drop Cells Not Reportable 12/19/16 05:02 Ovalocytes Not Reportable 12/19/16 05:02 Stomatocytes Rare 12/03/16 04:00 Helmet Cells Not Reportable 12/19/16 05:02 [place] Bodies Not Reportable 12/19/16 05:02 [place] Rings Not Reportable 12/19/16 05:02 [place] Cells Not Reportable 12/19/16 05:02 Bite Cells Not Reportable 12/19/16 05:02 Crenated Cell Not Reportable 12/19/16 05:02 Elliptocytes Not Reportable 12/19/16 05:02 Acanthocytes (Spur) Not Reportable 12/19/16 05:02 Rouleaux Not Reportable 12/19/16 05:02 Hemoglobin C Crystals Not Reportable 12/19/16 05:02 Schistocytes Not Reportable 12/19/16 05:02 Malaria parasites Not Reportable 12/19/16 05:02 ESR > 140.0 mm/Hr (0-20) 09/08/16 11:48 Jun Bodies Not Reportable 12/19/16 05:02 Hem Pathologist Commnt No 12/19/16 05:02 PT 15.4 Sec. (12.2-14.9) H 01/13/17 15:50 INR 1.16 (0.87-1.13) H 01/13/17 15:50 APTT 33.0 Sec. (24.2-36.6) 10/09/16 03:45 Thrombin Time 16.8 Sec. (15.1-19.6) 09/03/16 00:10 Fibrinogen 750 mg/dl (211-480) H 09/08/16 11:48 Lupus Anticoagulant see below 09/12/16 09:59 LA PTT Baseline See scanned report 09/12/16 09:59 dRVVT Confirm Interp Positive (Negative) H 09/12/16 09:59 dRVVT Screen 50:50 See scanned report 09/12/16 09:59 dRVVT Mix Interpret See scanned report 09/12/16 09:59 Protein C Antigen 122 % (70-140) 09/08/16 15:35 Free Protein S 97 % normal (50-147) 09/08/16 15:35 Total Protein S 109 % (70-140) 09/08/16 15:35 Antithrombin III Ag 100 % (80-120) 09/08/16 15:35 Heparin Anti-Xa, Unfract Negative (Negative) 09/29/16 13:35 Factor V Activity 182 % (65-150) H 09/08/16 15:35 POC ABG pH 7.436 (7.35-7.45) 01/20/17 12: ABG pH 7.450 pH Units (7.350-7.450) 12/05/16 Unknown POC ABG pCO2 35.3 (35-45) 01/20/17 12: ABG pCO2 29.6 mm Hg 12/05/16 Unknown POC ABG pO2 70 (80-105) L 01/20/17 12: ABG pO2 75.2 mm Hg (80.0-90.0) L 12/05/16 Unknown POC ABG HCO3 23.8 01/20/17 12: ABG HCO3 20.1 mmol/L (20.0-26.0) 12/05/16 Unknown POC ABG Total CO2 25 01/20/17 12:17 POC ABG O2 Sat 94 01/20/17 12: ABG O2 Saturation 96.8 % (95.0-99.0) 12/05/16 Unknown ABG O2 Content 9.9 (0.0-44) 12/05/16 Unknown POC ABG Base Excess 0 01/20/17 12: ABG Base Excess -3.4 mmol/L (-2.0-3.0) L 12/05/16 Unknown ABG Hemoglobin 7.4 gm/dl (12.0-16.0) L 12/05/16 Unknown ABG Carboxyhemoglobin 1.8 % (0.0-5.0) 12/05/16 Unknown ABG Methemoglobin 0.6 % (0.0-1.5) 12/05/16 Unknown Oxyhemoglobin 94.5 % (95.0-99.0) L 12/05/16 Unknown FiO2 30 % 01/20/17 12:17 Sodium 139 mmol/L (137-145) 02/14/17 08:08 Potassium 3.9 mmol/L (3.6-5.0) D 02/14/17 08:08 Chloride 98.9 mmol/L (98-107) 02/14/17 08:08 Carbon Dioxide 18 mmol/L (22-30) L 02/14/17 08:08 Anion Gap 26 mmol/L 02/14/17 08:08 BUN 79 mg/dL (7-17) H 02/14/17 08:08 Creatinine 2.1 mg/dL (0.7-1.2) H 02/14/17 08:08 Estimated GFR 31 ml/min 02/14/17 08:08 BUN/Creatinine Ratio 38 % 02/14/17 08:08 Glucose 89 mg/dL (65-100) 02/14/17 08:08 POC Glucose 112 (70-105) H 02/14/17 06:16 Osmolality 351 Mosm/kg 09/16/16 11:47 Lactic Acid 2.30 mmol/L (0.7-2.0) H* 01/09/17 08:22 Calcium 10.2 mg/dL (8.4-10.2) 02/14/17 08:08 Phosphorus 1.70 mg/dL (2.5-4.5) L D 02/14/17 08:08 Magnesium 1.60 mg/dL (1.7-2.3) L 02/14/17 08:08 Total Bilirubin 0.40 mg/dL (0.1-1.2) 02/06/17 04:45 Direct Bilirubin 0.2 mg/dL (0-0.2) 01/28/17 04:00 Indirect Bilirubin 0.3 mg/dL 01/28/17 04:00 AST 29 units/L (5-40) 02/06/17 04:45 ALT 26 units/L (7-56) 02/06/17 04:45 Alkaline Phosphatase 199 units/L (35-129) H 02/06/17 04:45 Ammonia 27.0 umol/L (25-60) 09/07/16 08:37 Lactate Dehydrogenase 170 units/L (91-180) 01/13/17 15:50 Total Creatine Kinase 121 units/L (30-135) 09/29/16 20:12 CK-MB (CK-2) < 1.0 ng/mL (0.0-4.0) 09/29/16 20:12 CK-MB (CK-2) Rel Index 0.8 (0-4) 09/29/16 20:12 Troponin T 0.204 ng/mL (0.00-0.029) H* 09/29/16 20:12 C-Reactive Protein 8.10 mg/dL (0.00-1.30) H 01/31/17 11:12 Total Protein 6.7 g/dL (6.3-8.2) 02/06/17 04:45 Albumin 1.4 g/dL (3.9-5) L 02/06/17 04:45 Albumin/Globulin Ratio 0.3 % 02/06/17 04:45 Prealbumin 0.110 g/L (0.200-0.400) L 12/29/16 05:15 Triglycerides 55 mg/dL (2-149) 02/06/17 04:45 Cholesterol 31 mg/dL (50-199) L 09/29/16 20:12 LDL Cholesterol Direct 4 mg/dL (50-130) L 09/29/16 20:12 HDL Cholesterol 3 mg/dL (40-59) L 09/29/16 20:12 Cholesterol/HDL Ratio 10.33 % 09/29/16 20:12 Angiotensin Convert Enz See scanned report 09/08/16 11:48 Renin 0.99 ng/mL/h (0.25-5.82) 10/07/16 10:56 Aldosterone <1 ng/dL () 10/07/16 10:56 Aldosterone/Renin Dir see below 10/07/16 10:56 Serotonin Release Assay See scanned report 09/29/16 13:35 TSH 1.010 mlU/mL (0.270-4.200) 09/07/16 08:37 HCG, Qual Negative (Negative) 09/03/16 00:10 PTH Intact 6.76 pg/mL (15-65) L 01/31/17 17:50 Total Cortisol 18.2 mcg/dL () 02/02/17 20:09 Urine Color Yellow (Yellow) 11/05/16 13:09 Urine Turbidity Clear (Clear) 11/05/16 13:09 Urine pH 9.0 (5.0-7.0) H 11/05/16 13:09 Ur Specific [place] 1.011 (1.003-1.030) 11/05/16 13:09 Urine Protein 100 mg/dl mg/dL (Negative) 11/05/16 13:09 Urine Glucose (UA) Neg mg/dL (Negative) 11/05/16 13:09 Urine Ketones Neg mg/dL (Negative) 11/05/16 13:09 Urine Blood Neg (Negative) 11/05/16 13:09 Urine Nitrite Neg (Negative) 11/05/16 13:09 Urine Bilirubin Neg (Negative) 11/05/16 13:09 Urine Urobilinogen < 2.0 mg/dL (<2.0) 11/05/16 13:09 Ur Leukocyte Esterase Neg (Negative) 11/05/16 13:09 Urine WBC (Auto) 4.0 /HPF (0.0-6.0) 11/05/16 13:09 Urine RBC (Auto) 1.0 /HPF (0.0-6.0) 11/05/16 13:09 U Epithel Cells (Auto) 1.0 /HPF (0-13.0) 10/07/16 18:30 Urine Bacteria (Auto) 4+ /HPF (Negative) 11/05/16 13:09 Urine WBC Clumps 2+ /HPF 09/07/16 02:47 Hyaline Casts 4 /LPF 09/07/16 02:47 Urine Mucus Few /HPF 10/07/16 18:30 Urine Yeast (Budding) 3+ /HPF 10/07/16 18:30 Urine Eosinophils None seen (None Seen) 09/07/16 16:00 Urine Total Volume 950 11/12/16 10:18 Urine Creatinine 19.7 mg/dL (0.1-20.0) 11/12/16 10:18 Height (in) 65.0 inches 11/12/16 10:18 Weight (lb) 181.0 lbs 11/12/16 10:18 Creatinine Clearance 5 11/12/16 10:18 Urine Sodium 36 mEq/L 09/16/16 19:19 Urine Total Protein 16 mg/dL (5-11.8) H 09/16/16 19:19 Fluid Type Pleural 01/13/17 12:10 Fluid Color Yellow 01/13/17 12:10 Fluid Appearance Hazy 01/13/17 12:10 Fluid WBC 182 /mm3 01/13/17 12:10 Fluid RBC 41 /mm3 01/13/17 12:10 Fluid Seg Neutrophils 85.0 % 01/13/17 12:10 Fluid Lymphocytes 8.0 % 01/13/17 12:10 Fluid Reactive Lymphs 0 % 01/13/17 12:10 Fluid Monocytes 6.0 % 01/13/17 12:10 Fluid Eosinophils 1.0 % 01/13/17 12:10 Fluid Basophils 0 % 01/13/17 12:10 Fluid Total Protein 3.0 (15.0-45.0) L 01/13/17 12:10 Fluid LDH 1322 01/13/17 12:10 Fluid Comment Diff performed 01/13/17 12:10 Vancomycin Trough 2.3 ug/mL (5.0-20.0) L 09/21/16 13:00 Random Vancomycin 16.5 ug/mL (0-40.0) 11/28/16 09:45 Urine Opiates Screen Presumptive negative 09/03/16 15:11 Urine Methadone Screen Presumptive positive 09/03/16 15:11 Ur Barbiturates Screen Presumptive positive 09/03/16 15:11 Ur Phencyclidine Scrn Presumptive negative 09/03/16 15:11 Ur Amphetamines Screen Presumptive negative 09/03/16 15:11 U Benzodiazepines Scrn Presumptive negative 09/03/16 15:11 Urine Cocaine Screen Presumptive negative 09/03/16 15:11 U Marijuana (THC) Screen Presumptive positive 09/03/16 15:11 Drugs of Abuse Note Disclamer 09/03/16 15:11 Rheumatoid Factor 24 IU/ml (0-13) H 09/08/16 11:48 SAHIL Screen Negative (Negative) 09/07/16 09:20 Proteinase 3 (PR3) Ab <1.0 AI (<1.0) 09/07/16 09:20 Myeloperoxidase Ab <1.0 AI (<1.0) 09/07/16 09:20 Sjogren's Antibody <1.0 AI (<1.0) 09/08/16 15:35 Scl-70 Scleroderma Ab <1.0 AI (<1.0) 09/08/16 15:35 Centromere B Antibody <1.0 AI (<1.0) 09/08/16 12:02 Heparin-induced Plt Ab Negative (Negative) 09/29/16 13:35 UF Heparin High Dose 11 % Release 09/29/16 13:35 SUDHIR UFH Low Dose 0.1 6 % Release 09/29/16 13:35 SUDHIR UFH Low Dose 0.5 8 % Release 09/29/16 13:35 Cardiolipid IgG Ab <14 GPL (<=14) 09/12/16 09:59 Cardiolipid IgA Ab <11 APL (<=11) 09/12/16 09:59 Cardiolipid IgM Ab <12 MPL (<=12) 09/12/16 09:59 Complement C3 148 mg/dL (90-180) 09/07/16 09:20 Complement C4 58 mg/dL (16-47) H 09/07/16 09:20 RPR Nonreactive (Nonreactive) 09/08/16 11:48 Hepatitis A IgM Ab Non-reactive (NonReactive) 09/24/16 14:40 Hep Bs Antigen Non-reactive (Negative) 09/24/16 14:40 Hep B Core IgM Ab Non-reactive (NonReactive) 09/24/16 14:40 Hepatitis C Antibody Non-reactive (NonReactive) 09/24/16 14:40 HIV 1&2 Antibody Rapid Non react (Non React) 09/08/16 11:48 HIV P24 Antigen Non react (Non React) 09/08/16 11:48 Miscellaneous Test Flexitest 1 H 01/09/17 18:45 Blood Type A POSITIVE 02/12/17 10:25 Antibody Screen Negative 02/12/17 10:25 DELORIS Antibody Screen Negative 11/24/16 11:20 Crossmatch See Detail 02/12/17 10:25
[2017-02-14] MEDS: MAG-OX PO SCH (10:23)
[2017-02-14] MEDS: PROTONIX FEEDTUBE SCH (10:23)
[2017-02-14] MEDS ORDERED: MAGNESIUM SULFATE 1 GM in NACL 0.9% 50 ML IV ONE (10:30)
[2017-02-14] MEDS ORDERED: KPHOS 30 MMOL in NACL 0.9% 500 ML 500 ML IV ONE (11:00)
--- NOTE | 2017-02-14 11:17 | Progress Note ---
Assessment and Plan Assessment: 1) Recurrent SIRS: new fever-resolved. Likely due to perforated bowel 2) History of Peritonitis: from gastric perforation from dislodged PEG with significant ascites -S/P exlap, repair of gastric perforation with wedge gastrectomy, abdominal washout, drain placement on 10/05 3) History of Candidemia: -Blood cultures positive for Silvia albicans on 09/23 and 09/25 -Blood cultures negative on 09/30 -PICC line changed on 10/03 -Source ? gastric perf (PEG placed on 09/20) +/- TPN +/- central lines -TTE 10/07 no vegetations -PICC exchanged on 10/03 -fully treated with micafungin for 14 days last day 10/13 4) History CA-UTI s/p gutierrez exchanged 5) Diarrhea - ? etiology ? antibiotic-induced, not better. 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 from GI bleed 13) Recent abdominal wall abscess at surgical site-treated 14 ) Recent Enterococcal bacteremia from PICC line infection. 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 -worsening -S/P debridement at bedside - new wound cx 01/24 +Proteus and MDR Pseudomonas (resistant to meropenem and cefepime/sensitive to ceftazidime) -CRP=24 --> 8 16) Presumed VAP: sputum + MDR Pseudomonas / Proteus / pleural effusion s/p thoracentesis 17) Resp failure - better 18) Perforated bowel: Ct showed presumed perf bowel with free air Plan: -continue ceftazidime IV total 3 weeks until 02/20/17 - initially started for sacral osteo -adding flagyl and fluconazole will not change outcome. -pt was made DNR - unfortunately very poor prognosis. -continue wound care -monitor fever Thank you Dr Means or your consultation, will follow up with you. Pauline Carias MD Infectious Diseases Specialist [facility] ([facility] [phone] O [phone] Subjective Date of service: 02/14/17 Principal diagnosis: Acute resp failure on MVS; S/P Acute CVA; Acute Encephalopathy; JUANITA Interval history: Interval history: remains on the vent, tachy on monitor, no fever. 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 +NGT with greenish secretion Neck: +trach in place; supple, no thyromegaly or lymphadenopathy Lungs: brit coarse BS CV: tachy Abdomen: Soft, non-tender, +old PEG site no drainage. +iliostomy. Right sided Surgical site x 2 with ostomy bag draining small amount yellowish secretion Extremities: +peripheral edema Skin: sacral area wounds - per wound care STAGE 4 PRESSURE INJURY TO SACRAL MEASURES 7.5X6X2.5, WITH UNDERMINING FROM @9-1 OCLOCK-2.8CM-ULCER CLEANED WITH WOUND TECHNICIAN SUPPORT ENGINEER-ULCER NEW - Sacrum wound measuring 9x11cm. Necrotic tissue noted on the wound edges and in the wound bed Psych: somnolent . Neuro: alert non verbal on the vent. Lines: PICC / gutierrez - Constitutional Vitals: Vital Signs Temp Pulse Resp BP Pulse Ox 97.9 F 135 H 41 H 107/58 94 02/14/17 09:26 02/14/17 09:00 02/14/17 09:00 02/14/17 09:00 02/14/17 09:00 Temperature -Last 24 Hours Temperature 97.9 F Temperature 97.9 F Temperature 99.1 F Temperature 98.0 F Temperature 98.9 F Temperature 98.6 F Temperature 97.1 F Temperature 97.1 F - Labs CBC & Chem 7: 02/14/17 08:08 02/14/17 08:08 Labs: Abnormal lab results 02/13/17 02/13/17 02/14/17 Range/Units 12:03 18:09 06:16 WBC (4.5-11.0) K/mm3 RBC (3.65-5.03) M/mm3 Hgb (10.1-14.3) gm/dl Hct (30.3-42.9) % RDW (13.2-15.2) % Carbon Dioxide (22-30) mmol/L BUN (7-17) mg/dL Creatinine (0.7-1.2) mg/dL POC Glucose 160 H 110 H 112 H (70-105) Phosphorus (2.5-4.5) mg/dL Magnesium (1.7-2.3) mg/dL 02/14/17 02/14/17 Range/Units 08:08 08:08 WBC 15.2 H (4.5-11.0) K/mm3 RBC 2.97 L (3.65-5.03) M/mm3 Hgb 8.1 L (10.1-14.3) gm/dl Hct 26.3 L (30.3-42.9) % RDW 19.3 H (13.2-15.2) % Carbon Dioxide 18 L (22-30) mmol/L BUN 79 H (7-17) mg/dL Creatinine 2.1 H (0.7-1.2) mg/dL POC Glucose (70-105) Phosphorus 1.70 L D (2.5-4.5) mg/dL Magnesium 1.60 L (1.7-2.3) mg/dL
--- NOTE | 2017-02-14 11:30 | Progress Note ---
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 Received albumin for blood pressure support * Continue dialysis on Mondays, Wednesdays and Fridays schedule for now. * Continue PRN albumin for blood pressure support * Packed RBC transfusion as needed per primary team * Patient's serum creatinine is noted to be low. However she is oliguric and remains volume overloaded. Needs to be maintained on dialysis at this time. . * Avoid nephrotoxins * Adjust meds for GFR less than 10 * No evidence of renal recovery at this time Subjective Date of service: 02/14/17 Principal diagnosis: Acute resp failure on MVS; S/P Acute CVA; Acute Encephalopathy; JUANITA Interval history: Patient remains on the ventilator. Currently on 25% FiO2. Unresponsive. Patient had become hypotensive last night. She required fluid bolus and also pressors. She has been weaned off of pressors this morning. Objective - Vital Signs Vital signs: Vital Signs - 12hr 02/14/17 02/14/17 02/14/17 00:00 01:00 02:00 Temperature 98.0 F Pulse Rate 146 H 155 H 110 H Pulse Rate [ 132 H Apical] Pulse Rate [ From Monitor] Respiratory 20 23 24 Rate Blood Pressure 100/59 91/53 99/60 O2 Sat by Pulse 98 Oximetry 02/14/17 02/14/17 02/14/17 03:00 03:08 04:00 Temperature 99.1 F Pulse Rate 111 H 108 H 112 H Pulse Rate [ 108 H Apical] Pulse Rate [ From Monitor] Respiratory 24 25 H Rate Blood Pressure 103/62 103/62 106/63 O2 Sat by Pulse 98 100 92 Oximetry 02/14/17 02/14/17 02/14/17 05:00 06:00 07:00 Temperature Pulse Rate 133 H 125 H 120 H Pulse Rate [ Apical] Pulse Rate [ From Monitor] Respiratory 18 28 H 18 Rate Blood Pressure 108/58 113/60 95/52 O2 Sat by Pulse 98 93 94 Oximetry 02/14/17 02/14/17 02/14/17 08:00 08:03 09:00 Temperature 97.9 F Pulse Rate 127 H 129 H 135 H Pulse Rate [ 128 H Apical] Pulse Rate [ 128 H From Monitor] Respiratory 16 27 H 41 H Rate Blood Pressure 109/50 109/50 107/58 O2 Sat by Pulse 95 99 94 Oximetry 02/14/17 09:26 Temperature 97.9 F Pulse Rate Pulse Rate [ Apical] Pulse Rate [ From Monitor] Respiratory Rate Blood Pressure O2 Sat by Pulse Oximetry - General Appearance General appearance: chronically ill, frail EENT: PERRL, mucous membranes moist Neck: no JVD, no thyromegaly, no carotid bruit, supple, other (tracheostomy tube in place. Connected to the ventilator) Respiratory: Present: Ronchi (bilateral scattered rhonchi) Cardiology: regular, normal heart rate, S1S2, no murmurs Gastrointestinal: normoactive bowel sounds, other (collection bag noted in the right lower quadrant) Integumentary: other (1+ edema) - Lab 02/14/17 08:08 02/14/17 08:08 Most recent lab results ABG pH 7.450 pH Units (7.350-7.450) 12/05/16 Unknown ABG pCO2 29.6 mm Hg 12/05/16 Unknown ABG pO2 75.2 mm Hg (80.0-90.0) L 12/05/16 Unknown ABG HCO3 20.1 mmol/L (20.0-26.0) 12/05/16 Unknown ABG O2 Saturation 96.8 % (95.0-99.0) 12/05/16 Unknown Calcium 10.2 mg/dL (8.4-10.2) 02/14/17 08:08 Phosphorus 1.70 mg/dL (2.5-4.5) L D 02/14/17 08:08 Magnesium 1.60 mg/dL (1.7-2.3) L 02/14/17 08:08 Urine Creatinine 19.7 mg/dL (0.1-20.0) 11/12/16 10:18 Urine Sodium 36 mEq/L 09/16/16 19:19 Urine Total Protein 16 mg/dL (5-11.8) H 09/16/16 19:19
--- NOTE | 2017-02-14 12:19 | Progress Note ---
Assessment and Plan Patient is 46-year-old woman with a history of hypertension, diabetes mellitus, asthma, hyperlipidemia, chronic kidney disease and anxiety, who was brought in by family because she couldn't get her words out, her face was also twisted, she was admitted for acute CVA and accelerated hypertension, she had a hx of poor adherence with her medications, and uncontrolled hypertension. Patient's SBP on admission was noted be greater than 260. TPA was started but this it was discontinued after 5 minutes because her blood pressure became uncontrolled. The TPA was not initiated again because the patient was outside the TPA window. Patient has had a prolonged hospital stay complicated with recurrent severe sepsis. Patient with most recent event also status post cardiac arrest on 11/21/16 , with CPR and ROSC. Acute on chronic Hypoxemic Respiratory Failure Sepsis -recurrent s/p tracheostomy Hypertension Atrial Fibrillation with RVR Acute encephalopathy s/p CVA Oropharyngeal dysphagia Enterococcal bacteremia Sacral Decubitus Ulcer- unstageable s/p debridement Anemia Obesity JUANITA now on hemodialysis Enteric Fistula - VAP bundle addressed - continue NGT to LIS - continue wound care/wound vac per WCT - Vasopressor if MAP falls < 65mmHg - keep on with daily PSV trials and / or T-piece as tolerated - continue TPN administration (continue TPN; NPO except for meds) - continue airway clearance and secretion management - continue to wean FiO2 for sats > 94% - continue to monitor hemodynamics closely - continue HD/UF per nephrology - continue to follow electrolytes and correct as necessary - continue GI & VTE prophylaxis Transfuse 1 unit PRBC as needed to keep HgH>7g/dL .....she remains critically ill on life sustaining interventions including MVS and at risk for further deterioration including ...fpc prognosis remains poor - Patient Problems (1) Acute respiratory failure with hypoxia Current Visit: Yes Status: Acute (2) Acute blood loss anemia Current Visit: Yes Status: Resolved (3) Acute CVA (cerebrovascular accident) Current Visit: Yes Status: Acute (4) Chronic renal insufficiency Current Visit: Yes Status: Acute (5) Uncontrolled hypertension Current Visit: Yes Status: Acute (6) Leukocytosis (leucocytosis) Current Visit: Yes Status: Acute Qualifiers: Leukocytosis type: leukemoid reaction Qualified Code(s): D72.823 - Leukemoid reaction (7) Dislodged gastrostomy tube Current Visit: Yes Status: Acute (8) Fungemia Current Visit: Yes Status: Resolved (9) Cardiopulmonary arrest with successful resuscitation Current Visit: Yes Status: Acute Subjective Date of service: 02/14/17 Principal diagnosis: Acute resp failure on MVS; S/P Acute CVA; Acute Encephalopathy; JUANITA Interval history: Patient is seen today for: Acute resp failure on MVS; S/P Acute CVA; Acute Encephalopathy; JUANITA Seen and examined at bedside; 24hour events reviewed; nursing and respiratory care staff consulted; no adverse overnight events reported to me; she remains critically ill Patient was made DNR on 02/12/2017 by family, see hospitalist documentation. I was called overnight for hypotension , after a dose of metoprolol. Patient responded to a fluid bolus and vasopressor support. She has since been weaned off norepinephrine Patient responded to Currently on PSV 15/5, with tidal volumes of about 300 Getting HD and tolerating it Vitals, labs, medications, chart reviewed. Discussed with RT Objective - Exam Narrative Exam: General appearance: somnolent non communicative, on the vent via trach in mild resp distress, no following commands Eyes: anicteric sclera, moist conjunctivae; PERRLA HENT: Atraumatic; oropharynx limited; Normal external ears. +NGT with greenish secretion Neck: +trach in place; supple, no thyromegaly or lymphadenopathy Lungs: brit coarse BS CV: tachy Abdomen: Soft, non-tender, +old PEG site no drainage. +ileostomy. Right sided Surgical site x 2 with ostomy bag draining small amount yellowish secretion Extremities: +peripheral edema Skin: sacral area wounds - per wound care, wound vac in place Psych: somnolent . Neuro: alert non verbal on the vent. Lines: PICC / gutierrez Vital Signs - 12hr 02/14/17 02/14/17 02/14/17 01:00 02:00 03:00 Temperature Pulse Rate 155 H 110 H 111 H Pulse Rate [ Apical] Pulse Rate [ From Monitor] Respiratory 23 24 24 Rate Blood Pressure 91/53 99/60 103/62 O2 Sat by Pulse 98 98 Oximetry 02/14/17 02/14/17 02/14/17 03:08 04:00 05:00 Temperature 99.1 F Pulse Rate 108 H 112 H 133 H Pulse Rate [ 108 H Apical] Pulse Rate [ From Monitor] Respiratory 25 H 18 Rate Blood Pressure 103/62 106/63 108/58 O2 Sat by Pulse 100 92 98 Oximetry 02/14/17 02/14/17 02/14/17 06:00 07:00 08:00 Temperature 97.9 F Pulse Rate 125 H 120 H 127 H Pulse Rate [ 128 H Apical] Pulse Rate [ 128 H From Monitor] Respiratory 28 H 18 16 Rate Blood Pressure 113/60 95/52 109/50 O2 Sat by Pulse 93 94 95 Oximetry 02/14/17 02/14/17 02/14/17 08:03 09:00 09:26 Temperature 97.9 F Pulse Rate 129 H 135 H Pulse Rate [ Apical] Pulse Rate [ From Monitor] Respiratory 27 H 41 H Rate Blood Pressure 109/50 107/58 O2 Sat by Pulse 99 94 Oximetry 02/14/17 11:30 Temperature Pulse Rate 133 H Pulse Rate [ Apical] Pulse Rate [ From Monitor] Respiratory Rate Blood Pressure 97/50 O2 Sat by Pulse 97 Oximetry Constitutional: appears uncomfortable, other (not tracking) Eyes: non-icteric, other (tracheostomy tube in midline of neck) ENT: oropharynx moist, oropharyngeal exudate pre Neck: supple, no lymphadenopathy, no JVD, other (no thyromegaly) Effort: mildly labored Ascultation: Bilateral: clear, diminished breath sounds (bases R>L), rales, rhonchi (and referred upper airway sounds) Percussion: Right: dull (base), Bilateral: not dull Cardiovascular: regular rate and rhythm, other (no rubs / murmurs) Gastrointestinal: hypoactive bowel sounds, soft, non-tender, non-distended, other (RLQ & LUQ stomas with colostomy bags) Integumentary: decubitus ulcer (sacral; stage 4 s/p surgical debridement), other (no rash; no cellulitis; poor turgor) Extremities: no cyanosis, pulses normal, no ischemia or petechiae, edema (1+ bilaterally) Neurologic: pupils equal and round, unable to assess, other (encephalopathic) Psychiatric: other (unable to assess) CBC and BMP: 02/14/17 08:08 02/14/17 08:08 ABG, PT/INR, D-dimer: ABG POC ABG pH 7.436 (7.35-7.45) 01/20/17 12:17 ABG pH 7.450 pH Units (7.350-7.450) 12/05/16 Unknown POC ABG pCO2 35.3 (35-45) 01/20/17 12: ABG pCO2 29.6 mm Hg 12/05/16 Unknown POC ABG pO2 70 (80-105) L 01/20/17 12:17 ABG pO2 75.2 mm Hg (80.0-90.0) L 12/05/16 Unknown POC ABG HCO3 23.8 01/20/17 12:17 POC ABG Total CO2 25 01/20/17 12:17 POC ABG O2 Sat 94 01/20/17 12: ABG O2 Saturation 96.8 % (95.0-99.0) 12/05/16 Unknown PT/INR, D-dimer PT 15.4 Sec. (12.2-14.9) H 01/13/17 15:50 INR 1.16 (0.87-1.13) H 01/13/17 15:50 Abnormal lab findings: Abnormal Labs 09/03/16 09/03/16 09/03/16 00:03 00:10 00:10 WBC 13.9 H RBC 5.95 H Hgb Hct 44.0 H MCV 74 L MCH 22 L MCHC RDW 17.5 H Plt Count Lymph % (Auto) [place] % (Auto) Lymph # [place] # Baso # Seg Neutrophils % Seg Neuts % (Manual) Lymphocytes % (Manual) 54.0 H Monocytes % (Manual) Eosinophils % (Manual) Basophils % (Manual) Nucleated RBC % Seg Neutrophils # Seg Neutrophils # Man Lymphocytes # (Manual) 7.5 H Monocytes # (Manual) Eosinophils # (Manual) Basophils # (Manual) PT INR Fibrinogen dRVVT Confirm Interp Factor V Activity POC ABG pH POC ABG pCO2 POC ABG pO2 ABG pO2 ABG HCO3 ABG Base Excess ABG Hemoglobin Oxyhemoglobin Sodium Potassium 2.8 L* Chloride Carbon Dioxide 21 L BUN Creatinine 1.7 H Glucose 159 H POC Glucose 177 H Lactic Acid Calcium Phosphorus Magnesium Direct Bilirubin AST ALT Alkaline Phosphatase Lactate Dehydrogenase Troponin T C-Reactive Protein Total Protein Albumin Prealbumin Triglycerides Cholesterol LDL Cholesterol Direct HDL Cholesterol PTH Intact Urine pH Urine WBC (Auto) Urine Creatinine Urine Total Protein Fluid Total Protein Vancomycin Trough Rheumatoid Factor Complement C4 Miscellaneous Test Crossmatch 07/09/03/16 09/03/16 12:12 15:07 16:20 WBC RBC Hgb Hct MCV MCH MCHC RDW Plt Count Lymph % (Auto) [place] % (Auto) Lymph # [place] # Baso # Seg Neutrophils % Seg Neuts % (Manual) Lymphocytes % (Manual) Monocytes % (Manual) Eosinophils % (Manual) Basophils % (Manual) Nucleated RBC % Seg Neutrophils # Seg Neutrophils # Man Lymphocytes # (Manual) Monocytes # (Manual) Eosinophils # (Manual) Basophils # (Manual) PT INR Fibrinogen dRVVT Confirm Interp Factor V Activity POC ABG pH 7.452 H POC ABG pCO2 POC ABG pO2 ABG pO2 ABG HCO3 ABG Base Excess ABG Hemoglobin Oxyhemoglobin Sodium Potassium Chloride Carbon Dioxide BUN Creatinine Glucose POC Glucose 178 H Lactic Acid Calcium Phosphorus 2.20 L Magnesium 1.60 L Direct Bilirubin AST ALT Alkaline Phosphatase Lactate Dehydrogenase Troponin T C-Reactive Protein Total Protein Albumin Prealbumin Triglycerides Cholesterol LDL Cholesterol Direct HDL Cholesterol PTH Intact Urine pH Urine WBC (Auto) Urine Creatinine Urine Total Protein Fluid Total Protein Vancomycin Trough Rheumatoid Factor Complement C4 Miscellaneous Test Crossmatch 09/03/16 09/03/16 09/03/16 17:57 17:58 23:50 WBC RBC Hgb Hct MCV MCH MCHC RDW Plt Count Lymph % (Auto) [place] % (Auto) Lymph # [place] # Baso # Seg Neutrophils % Seg Neuts % (Manual) Lymphocytes % (Manual) Monocytes % (Manual) Eosinophils % (Manual) Basophils % (Manual) Nucleated RBC % Seg Neutrophils # Seg Neutrophils # Man Lymphocytes # (Manual) Monocytes # (Manual) Eosinophils # (Manual) Basophils # (Manual) PT INR Fibrinogen dRVVT Confirm Interp Factor V Activity POC ABG pH POC ABG pCO2 POC ABG pO2 ABG pO2 ABG HCO3 ABG Base Excess ABG Hemoglobin Oxyhemoglobin Sodium Potassium Chloride Carbon Dioxide BUN Creatinine Glucose POC Glucose 162 H 145 H Lactic Acid Calcium Phosphorus 2.30 L Magnesium Direct Bilirubin AST ALT Alkaline Phosphatase Lactate Dehydrogenase Troponin T C-Reactive Protein Total Protein Albumin Prealbumin Triglycerides Cholesterol LDL Cholesterol Direct HDL Cholesterol PTH Intact Urine pH Urine WBC (Auto) Urine Creatinine Urine Total Protein Fluid Total Protein Vancomycin Trough Rheumatoid Factor Complement C4 Miscellaneous Test Crossmatch 09/04/16 09/04/16 09/04/16 03:31 03:31 05:42 WBC RBC Hgb 9.7 L D Hct MCV 72 L MCH 23 L MCHC RDW 17.5 H Plt Count Lymph % (Auto) 11.1 L [place] % (Auto) Lymph # [place] # Baso # Seg Neutrophils % 84.3 H Seg Neuts % (Manual) Lymphocytes % (Manual) Monocytes % (Manual) Eosinophils % (Manual) Basophils % (Manual) Nucleated RBC % Seg Neutrophils # 8.9 H Seg Neutrophils # Man Lymphocytes # (Manual) Monocytes # (Manual) Eosinophils # (Manual) Basophils # (Manual) PT INR Fibrinogen dRVVT Confirm Interp Factor V Activity POC ABG pH POC ABG pCO2 POC ABG pO2 ABG pO2 ABG HCO3 ABG Base Excess ABG Hemoglobin Oxyhemoglobin Sodium 135 L Potassium 2.9 L* Chloride 97.2 L Carbon Dioxide 19 L BUN Creatinine 1.7 H Glucose 170 H POC Glucose 152 H Lactic Acid Calcium Phosphorus Magnesium Direct Bilirubin AST ALT Alkaline Phosphatase Lactate Dehydrogenase Troponin T C-Reactive Protein Total Protein Albumin Prealbumin Triglycerides 160 H Cholesterol LDL Cholesterol Direct HDL Cholesterol 31 L PTH Intact Urine pH Urine WBC (Auto) Urine Creatinine Urine Total Protein Fluid Total Protein Vancomycin Trough Rheumatoid Factor Complement C4 Miscellaneous Test Crossmatch 09/04/16 09/04/16 09/04/16 11:34 17:46 23:29 WBC RBC Hgb Hct MCV MCH MCHC RDW Plt Count Lymph % (Auto) [place] % (Auto) Lymph # [place] # Baso # Seg Neutrophils % Seg Neuts % (Manual) Lymphocytes % (Manual) Monocytes % (Manual) Eosinophils % (Manual) Basophils % (Manual) Nucleated RBC % Seg Neutrophils # Seg Neutrophils # Man Lymphocytes # (Manual) Monocytes # (Manual) Eosinophils # (Manual) Basophils # (Manual) PT INR Fibrinogen dRVVT Confirm Interp Factor V Activity POC ABG pH POC ABG pCO2 POC ABG pO2 ABG pO2 ABG HCO3 ABG Base Excess ABG Hemoglobin Oxyhemoglobin Sodium Potassium Chloride Carbon Dioxide BUN Creatinine Glucose POC Glucose 165 H 210 H 139 H Lactic Acid Calcium Phosphorus Magnesium Direct Bilirubin AST ALT Alkaline Phosphatase Lactate Dehydrogenase Troponin T C-Reactive Protein Total Protein Albumin Prealbumin Triglycerides Cholesterol LDL Cholesterol Direct HDL Cholesterol PTH Intact Urine pH Urine WBC (Auto) Urine Creatinine Urine Total Protein Fluid Total Protein Vancomycin Trough Rheumatoid Factor Complement C4 Miscellaneous Test Crossmatch 09/05/16 09/05/16 09/05/16 04:05 04:05 05:38 WBC RBC Hgb Hct MCV 76 L D MCH 23 L MCHC RDW 17.8 H Plt Count Lymph % (Auto) [place] % (Auto) Lymph # [place] # Baso # Seg Neutrophils % Seg Neuts % (Manual) Lymphocytes % (Manual) Monocytes % (Manual) Eosinophils % (Manual) Basophils % (Manual) Nucleated RBC % Seg Neutrophils # Seg Neutrophils # Man Lymphocytes # (Manual) Monocytes # (Manual) Eosinophils # (Manual) Basophils # (Manual) PT INR Fibrinogen dRVVT Confirm Interp Factor V Activity POC ABG pH POC ABG pCO2 POC ABG pO2 ABG pO2 ABG HCO3 ABG Base Excess ABG Hemoglobin Oxyhemoglobin Sodium 134 L Potassium Chloride Carbon Dioxide 18 L BUN Creatinine 1.8 H Glucose 192 H POC Glucose 175 H Lactic Acid Calcium Phosphorus Magnesium Direct Bilirubin AST ALT Alkaline Phosphatase Lactate Dehydrogenase Troponin T C-Reactive Protein Total Protein Albumin Prealbumin Triglycerides Cholesterol LDL Cholesterol Direct HDL Cholesterol PTH Intact Urine pH Urine WBC (Auto) Urine Creatinine Urine Total Protein Fluid Total Protein Vancomycin Trough Rheumatoid Factor Complement C4 Miscellaneous Test Crossmatch 09/05/16 09/05/16 09/05/16 11:38 17:48 23:22 WBC RBC Hgb Hct MCV MCH MCHC RDW Plt Count Lymph % (Auto) [place] % (Auto) Lymph # [place] # Baso # Seg Neutrophils % Seg Neuts % (Manual) Lymphocytes % (Manual) Monocytes % (Manual) Eosinophils % (Manual) Basophils % (Manual) Nucleated RBC % Seg Neutrophils # Seg Neutrophils # Man Lymphocytes # (Manual) Monocytes # (Manual) Eosinophils # (Manual) Basophils # (Manual) PT INR Fibrinogen dRVVT Confirm Interp Factor V Activity POC ABG pH POC ABG pCO2 POC ABG pO2 ABG pO2 ABG HCO3 ABG Base Excess ABG Hemoglobin Oxyhemoglobin Sodium Potassium Chloride Carbon Dioxide BUN Creatinine Glucose POC Glucose 164 H 186 H 195 H Lactic Acid Calcium Phosphorus Magnesium Direct Bilirubin AST ALT Alkaline Phosphatase Lactate Dehydrogenase Troponin T C-Reactive Protein Total Protein Albumin Prealbumin Triglycerides Cholesterol LDL Cholesterol Direct HDL Cholesterol PTH Intact Urine pH Urine WBC (Auto) Urine Creatinine Urine Total Protein Fluid Total Protein Vancomycin Trough Rheumatoid Factor Complement C4 Miscellaneous Test Crossmatch 09/06/16 09/06/16 09/06/16 04:12 05:59 07:32 WBC RBC Hgb Hct MCV MCH MCHC RDW Plt Count Lymph % (Auto) [place] % (Auto) Lymph # [place] # Baso # Seg Neutrophils % Seg Neuts % (Manual) Lymphocytes % (Manual) Monocytes % (Manual) Eosinophils % (Manual) Basophils % (Manual) Nucleated RBC % Seg Neutrophils # Seg Neutrophils # Man Lymphocytes # (Manual) Monocytes # (Manual) Eosinophils # (Manual) Basophils # (Manual) PT INR Fibrinogen dRVVT Confirm Interp Factor V Activity POC ABG pH 7.514 H POC ABG pCO2 29.1 L POC ABG pO2 72 L ABG pO2 ABG HCO3 ABG Base Excess ABG Hemoglobin Oxyhemoglobin Sodium 133 L Potassium 3.4 L Chloride 94.9 L Carbon Dioxide 19 L BUN 30 H Creatinine 2.1 H Glucose 139 H POC Glucose 146 H Lactic Acid Calcium Phosphorus Magnesium Direct Bilirubin AST ALT Alkaline Phosphatase Lactate Dehydrogenase Troponin T C-Reactive Protein Total Protein Albumin Prealbumin Triglycerides Cholesterol LDL Cholesterol Direct HDL Cholesterol PTH Intact Urine pH Urine WBC (Auto) Urine Creatinine Urine Total Protein Fluid Total Protein Vancomycin Trough Rheumatoid Factor Complement C4 Miscellaneous Test Crossmatch 09/06/16 09/06/16 09/06/16 11:57 17:58 19:02 WBC RBC Hgb Hct MCV MCH MCHC RDW Plt Count Lymph % (Auto) [place] % (Auto) Lymph # [place] # Baso # Seg Neutrophils % Seg Neuts % (Manual) Lymphocytes % (Manual) Monocytes % (Manual) Eosinophils % (Manual) Basophils % (Manual) Nucleated RBC % Seg Neutrophils # Seg Neutrophils # Man Lymphocytes # (Manual) Monocytes # (Manual) Eosinophils # (Manual) Basophils # (Manual) PT INR Fibrinogen dRVVT Confirm Interp Factor V Activity POC ABG pH 7.465 H POC ABG pCO2 32.0 L POC ABG pO2 ABG pO2 ABG HCO3 ABG Base Excess ABG Hemoglobin Oxyhemoglobin Sodium Potassium Chloride Carbon Dioxide BUN Creatinine Glucose POC Glucose 165 H 160 H Lactic Acid Calcium Phosphorus Magnesium Direct Bilirubin AST ALT Alkaline Phosphatase Lactate Dehydrogenase Troponin T C-Reactive Protein Total Protein Albumin Prealbumin Triglycerides Cholesterol LDL Cholesterol Direct HDL Cholesterol PTH Intact Urine pH Urine WBC (Auto) Urine Creatinine Urine Total Protein Fluid Total Protein Vancomycin Trough Rheumatoid Factor Complement C4 Miscellaneous Test Crossmatch 09/06/16 09/07/16 09/07/16 23:45 02:47 02:47 WBC RBC Hgb Hct MCV MCH MCHC RDW Plt Count Lymph % (Auto) [place] % (Auto) Lymph # [place] # Baso # Seg Neutrophils % Seg Neuts % (Manual) Lymphocytes % (Manual) Monocytes % (Manual) Eosinophils % (Manual) Basophils % (Manual) Nucleated RBC % Seg Neutrophils # Seg Neutrophils # Man Lymphocytes # (Manual) Monocytes # (Manual) Eosinophils # (Manual) Basophils # (Manual) PT INR Fibrinogen dRVVT Confirm Interp Factor V Activity POC ABG pH POC ABG pCO2 POC ABG pO2 ABG pO2 ABG HCO3 ABG Base Excess ABG Hemoglobin Oxyhemoglobin Sodium Potassium Chloride Carbon Dioxide BUN Creatinine Glucose POC Glucose 204 H Lactic Acid Calcium Phosphorus Magnesium Direct Bilirubin AST ALT Alkaline Phosphatase Lactate Dehydrogenase Troponin T C-Reactive Protein Total Protein Albumin Prealbumin Triglycerides Cholesterol LDL Cholesterol Direct HDL Cholesterol PTH Intact Urine pH Urine WBC (Auto) 68.0 H Urine Creatinine 106.1 H Urine Total Protein Fluid Total Protein Vancomycin Trough Rheumatoid Factor Complement C4 Miscellaneous Test Crossmatch 09/07/16 09/07/16 09/07/16 04:50 06:19 06:39 WBC RBC Hgb Hct MCV MCH MCHC RDW Plt Count Lymph % (Auto) [place] % (Auto) Lymph # [place] # Baso # Seg Neutrophils % Seg Neuts % (Manual) Lymphocytes % (Manual) Monocytes % (Manual) Eosinophils % (Manual) Basophils % (Manual) Nucleated RBC % Seg Neutrophils # Seg Neutrophils # Man Lymphocytes # (Manual) Monocytes # (Manual) Eosinophils # (Manual) Basophils # (Manual) PT INR Fibrinogen dRVVT Confirm Interp Factor V Activity POC ABG pH 7.457 H POC ABG pCO2 32.1 L POC ABG pO2 76 L ABG pO2 ABG HCO3 ABG Base Excess ABG Hemoglobin Oxyhemoglobin Sodium 132 L Potassium Chloride 94.7 L Carbon Dioxide BUN 53 H Creatinine 2.9 H Glucose 151 H POC Glucose 149 H Lactic Acid Calcium Phosphorus Magnesium Direct Bilirubin AST ALT Alkaline Phosphatase Lactate Dehydrogenase Troponin T C-Reactive Protein Total Protein Albumin Prealbumin Triglycerides Cholesterol LDL Cholesterol Direct HDL Cholesterol PTH Intact Urine pH Urine WBC (Auto) Urine Creatinine Urine Total Protein Fluid Total Protein Vancomycin Trough Rheumatoid Factor Complement C4 Miscellaneous Test Crossmatch 09/07/16 09/07/16 09/07/16 09:20 11:43 11:43 WBC 19.4 H RBC Hgb 8.3 L Hct 26.4 L D MCV 72 L D MCH 22 L MCHC RDW 17.9 H Plt Count Lymph % (Auto) 8.5 L [place] % (Auto) Lymph # [place] # 1.0 H Baso # Seg Neutrophils % 85.8 H Seg Neuts % (Manual) Lymphocytes % (Manual) Monocytes % (Manual) Eosinophils % (Manual) Basophils % (Manual) Nucleated RBC % Seg Neutrophils # 16.6 H Seg Neutrophils # Man Lymphocytes # (Manual) Monocytes # (Manual) Eosinophils # (Manual) Basophils # (Manual) PT INR Fibrinogen dRVVT Confirm Interp Factor V Activity POC ABG pH POC ABG pCO2 POC ABG pO2 ABG pO2 ABG HCO3 ABG Base Excess ABG Hemoglobin Oxyhemoglobin Sodium 134 L Potassium Chloride 97.2 L Carbon Dioxide 20 L BUN 58 H Creatinine 2.9 H Glucose 147 H POC Glucose Lactic Acid Calcium Phosphorus 2.40 L Magnesium 2.40 H Direct Bilirubin AST ALT Alkaline Phosphatase Lactate Dehydrogenase Troponin T C-Reactive Protein Total Protein 5.8 L Albumin 2.2 L Prealbumin Triglycerides Cholesterol LDL Cholesterol Direct HDL Cholesterol PTH Intact Urine pH Urine WBC (Auto) Urine Creatinine Urine Total Protein Fluid Total Protein Vancomycin Trough Rheumatoid Factor Complement C4 58 H Miscellaneous Test Crossmatch 09/07/16 09/07/16 09/07/16 11:50 16:00 17:31 WBC RBC Hgb Hct MCV MCH MCHC RDW Plt Count Lymph % (Auto) [place] % (Auto) Lymph # [place] # Baso # Seg Neutrophils % Seg Neuts % (Manual) Lymphocytes % (Manual) Monocytes % (Manual) Eosinophils % (Manual) Basophils % (Manual) Nucleated RBC % Seg Neutrophils # Seg Neutrophils # Man Lymphocytes # (Manual) Monocytes # (Manual) Eosinophils # (Manual) Basophils # (Manual) PT INR Fibrinogen dRVVT Confirm Interp Factor V Activity POC ABG pH POC ABG pCO2 POC ABG pO2 158 H ABG pO2 ABG HCO3 ABG Base Excess ABG Hemoglobin Oxyhemoglobin Sodium Potassium Chloride Carbon Dioxide BUN Creatinine Glucose POC Glucose 175 H Lactic Acid Calcium Phosphorus Magnesium Direct Bilirubin AST ALT Alkaline Phosphatase Lactate Dehydrogenase Troponin T C-Reactive Protein Total Protein Albumin Prealbumin Triglycerides Cholesterol LDL Cholesterol Direct HDL Cholesterol PTH Intact Urine pH Urine WBC (Auto) Urine Creatinine 66.3 H Urine Total Protein Fluid Total Protein Vancomycin Trough Rheumatoid Factor Complement C4 Miscellaneous Test Crossmatch 09/07/16 09/08/16 09/08/16 23:50 05:46 06:18 WBC 17.8 H RBC 3.58 L Hgb 8.1 L Hct 25.5 L MCV 71 L MCH 23 L MCHC RDW 18.4 H Plt Count Lymph % (Auto) [place] % (Auto) Lymph # [place] # Baso # Seg Neutrophils % Seg Neuts % (Manual) 92.0 H Lymphocytes % (Manual) 6.0 L Monocytes % (Manual) Eosinophils % (Manual) Basophils % (Manual) Nucleated RBC % Seg Neutrophils # Seg Neutrophils # Man 16.4 H Lymphocytes # (Manual) 1.1 L Monocytes # (Manual) Eosinophils # (Manual) Basophils # (Manual) PT INR Fibrinogen dRVVT Confirm Interp Factor V Activity POC ABG pH POC ABG pCO2 34.3 L POC ABG pO2 71 L ABG pO2 ABG HCO3 ABG Base Excess ABG Hemoglobin Oxyhemoglobin Sodium Potassium Chloride Carbon Dioxide BUN Creatinine Glucose POC Glucose 216 H Lactic Acid Calcium Phosphorus Magnesium Direct Bilirubin AST ALT Alkaline Phosphatase Lactate Dehydrogenase Troponin T C-Reactive Protein Total Protein Albumin Prealbumin Triglycerides Cholesterol LDL Cholesterol Direct HDL Cholesterol PTH Intact Urine pH Urine WBC (Auto) Urine Creatinine Urine Total Protein Fluid Total Protein Vancomycin Trough Rheumatoid Factor Complement C4 Miscellaneous Test Crossmatch 09/08/16 09/08/16 09/08/16 06:18 06:51 10:55 WBC RBC Hgb Hct MCV MCH MCHC RDW Plt Count Lymph % (Auto) [place] % (Auto) Lymph # [place] # Baso # Seg Neutrophils % Seg Neuts % (Manual) Lymphocytes % (Manual) Monocytes % (Manual) Eosinophils % (Manual) Basophils % (Manual) Nucleated RBC % Seg Neutrophils # Seg Neutrophils # Man Lymphocytes # (Manual) Monocytes # (Manual) Eosinophils # (Manual) Basophils # (Manual) PT INR Fibrinogen dRVVT Confirm Interp Factor V Activity POC ABG pH POC ABG pCO2 POC ABG pO2 ABG pO2 ABG HCO3 ABG Base Excess ABG Hemoglobin Oxyhemoglobin Sodium 133 L Potassium Chloride 96.9 L Carbon Dioxide 20 L BUN 63 H Creatinine 2.7 H Glucose 195 H POC Glucose 204 H 169 H Lactic Acid Calcium Phosphorus Magnesium Direct Bilirubin AST ALT Alkaline Phosphatase Lactate Dehydrogenase Troponin T C-Reactive Protein Total Protein Albumin Prealbumin Triglycerides Cholesterol LDL Cholesterol Direct HDL Cholesterol PTH Intact Urine pH Urine WBC (Auto) Urine Creatinine Urine Total Protein Fluid Total Protein Vancomycin Trough Rheumatoid Factor Complement C4 Miscellaneous Test Crossmatch 09/08/16 09/08/16 09/08/16 11:48 11:48 11:48 WBC RBC Hgb Hct MCV MCH MCHC RDW Plt Count Lymph % (Auto) [place] % (Auto) Lymph # [place] # Baso # Seg Neutrophils % Seg Neuts % (Manual) Lymphocytes % (Manual) Monocytes % (Manual) Eosinophils % (Manual) Basophils % (Manual) Nucleated RBC % Seg Neutrophils # Seg Neutrophils # Man Lymphocytes # (Manual) Monocytes # (Manual) Eosinophils # (Manual) Basophils # (Manual) PT INR Fibrinogen 750 H dRVVT Confirm Interp Factor V Activity POC ABG pH POC ABG pCO2 POC ABG pO2 ABG pO2 ABG HCO3 ABG Base Excess ABG Hemoglobin Oxyhemoglobin Sodium Potassium Chloride Carbon Dioxide BUN Creatinine Glucose POC Glucose Lactic Acid Calcium Phosphorus Magnesium Direct Bilirubin AST ALT Alkaline Phosphatase Lactate Dehydrogenase Troponin T C-Reactive Protein 15.70 H Total Protein Albumin Prealbumin Triglycerides Cholesterol LDL Cholesterol Direct HDL Cholesterol PTH Intact Urine pH Urine WBC (Auto) Urine Creatinine Urine Total Protein Fluid Total Protein Vancomycin Trough Rheumatoid Factor 24 H Complement C4 Miscellaneous Test Crossmatch 09/08/16 09/08/16 09/09/16 15:35 18:25 00:24 WBC RBC Hgb Hct MCV MCH MCHC RDW Plt Count Lymph % (Auto) [place] % (Auto) Lymph # [place] # Baso # Seg Neutrophils % Seg Neuts % (Manual) Lymphocytes % (Manual) Monocytes % (Manual) Eosinophils % (Manual) Basophils % (Manual) Nucleated RBC % Seg Neutrophils # Seg Neutrophils # Man Lymphocytes # (Manual) Monocytes # (Manual) Eosinophils # (Manual) Basophils # (Manual) PT INR Fibrinogen dRVVT Confirm Interp Factor V Activity 182 H POC ABG pH POC ABG pCO2 POC ABG pO2 ABG pO2 ABG HCO3 ABG Base Excess ABG Hemoglobin Oxyhemoglobin Sodium Potassium Chloride Carbon Dioxide BUN Creatinine Glucose POC Glucose 184 H 216 H Lactic Acid Calcium Phosphorus Magnesium Direct Bilirubin AST ALT Alkaline Phosphatase Lactate Dehydrogenase Troponin T C-Reactive Protein Total Protein Albumin Prealbumin Triglycerides Cholesterol LDL Cholesterol Direct HDL Cholesterol PTH Intact Urine pH Urine WBC (Auto) Urine Creatinine Urine Total Protein Fluid Total Protein Vancomycin Trough Rheumatoid Factor Complement C4 Miscellaneous Test Crossmatch 09/09/16 09/09/16 09/09/16 03:00 03:00 04:04 WBC 27.9 H RBC Hgb 8.7 L Hct 28.1 L MCV 72 L MCH 22 L MCHC RDW 18.4 H Plt Count 485 H Lymph % (Auto) [place] % (Auto) Lymph # [place] # Baso # Seg Neutrophils % Seg Neuts % (Manual) 77.0 H Lymphocytes % (Manual) 9.0 L Monocytes % (Manual) Eosinophils % (Manual) Basophils % (Manual) Nucleated RBC % Seg Neutrophils # Seg Neutrophils # Man 21.5 H Lymphocytes # (Manual) Monocytes # (Manual) 2.0 H Eosinophils # (Manual) Basophils # (Manual) PT INR Fibrinogen dRVVT Confirm Interp Factor V Activity POC ABG pH POC ABG pCO2 POC ABG pO2 121 H ABG pO2 ABG HCO3 ABG Base Excess ABG Hemoglobin Oxyhemoglobin Sodium 135 L Potassium Chloride 96.3 L Carbon Dioxide 21 L BUN 83 H Creatinine 3.0 H Glucose 135 H POC Glucose Lactic Acid Calcium Phosphorus Magnesium Direct Bilirubin AST ALT Alkaline Phosphatase Lactate Dehydrogenase Troponin T C-Reactive Protein Total Protein Albumin Prealbumin Triglycerides Cholesterol LDL Cholesterol Direct HDL Cholesterol PTH Intact Urine pH Urine WBC (Auto) Urine Creatinine Urine Total Protein Fluid Total Protein Vancomycin Trough Rheumatoid Factor Complement C4 Miscellaneous Test Crossmatch 09/09/16 09/09/16 09/09/16 05:41 11:55 14:13 WBC RBC Hgb Hct MCV MCH MCHC RDW Plt Count Lymph % (Auto) [place] % (Auto) Lymph # [place] # Baso # Seg Neutrophils % Seg Neuts % (Manual) Lymphocytes % (Manual) Monocytes % (Manual) Eosinophils % (Manual) Basophils % (Manual) Nucleated RBC % Seg Neutrophils # Seg Neutrophils # Man Lymphocytes # (Manual) Monocytes # (Manual) Eosinophils # (Manual) Basophils # (Manual) PT INR Fibrinogen dRVVT Confirm Interp Factor V Activity POC ABG pH POC ABG pCO2 POC ABG pO2 ABG pO2 ABG HCO3 ABG Base Excess ABG Hemoglobin Oxyhemoglobin Sodium Potassium Chloride Carbon Dioxide BUN Creatinine Glucose POC Glucose 155 H 186 H Lactic Acid Calcium Phosphorus Magnesium Direct Bilirubin AST ALT Alkaline Phosphatase Lactate Dehydrogenase Troponin T C-Reactive Protein Total Protein Albumin Prealbumin Triglycerides Cholesterol LDL Cholesterol Direct HDL Cholesterol PTH Intact Urine pH Urine WBC (Auto) 25.0 H Urine Creatinine Urine Total Protein Fluid Total Protein Vancomycin Trough Rheumatoid Factor Complement C4 Miscellaneous Test Crossmatch 09/09/16 09/09/16 09/10/16 17:33 23:13 05:09 WBC RBC Hgb Hct MCV MCH MCHC RDW Plt Count Lymph % (Auto) [place] % (Auto) Lymph # [place] # Baso # Seg Neutrophils % Seg Neuts % (Manual) Lymphocytes % (Manual) Monocytes % (Manual) Eosinophils % (Manual) Basophils % (Manual) Nucleated RBC % Seg Neutrophils # Seg Neutrophils # Man Lymphocytes # (Manual) Monocytes # (Manual) Eosinophils # (Manual) Basophils # (Manual) PT INR Fibrinogen dRVVT Confirm Interp Factor V Activity POC ABG pH POC ABG pCO2 POC ABG pO2 74 L ABG pO2 ABG HCO3 ABG Base Excess ABG Hemoglobin Oxyhemoglobin Sodium Potassium Chloride Carbon Dioxide BUN Creatinine Glucose POC Glucose 211 H 215 H Lactic Acid Calcium Phosphorus Magnesium Direct Bilirubin AST ALT Alkaline Phosphatase Lactate Dehydrogenase Troponin T C-Reactive Protein Total Protein Albumin Prealbumin Triglycerides Cholesterol LDL Cholesterol Direct HDL Cholesterol PTH Intact Urine pH Urine WBC (Auto) Urine Creatinine Urine Total Protein Fluid Total Protein Vancomycin Trough Rheumatoid Factor Complement C4 Miscellaneous Test Crossmatch 09/10/16 09/10/16 09/10/16 05:17 05:17 11:31 WBC 15.8 H RBC 3.25 L Hgb 7.3 L Hct 22.9 L MCV 71 L MCH 23 L MCHC RDW 18.4 H Plt Count Lymph % (Auto) [place] % (Auto) Lymph # [place] # Baso # Seg Neutrophils % Seg Neuts % (Manual) 91.0 H Lymphocytes % (Manual) 4.0 L Monocytes % (Manual) Eosinophils % (Manual) Basophils % (Manual) Nucleated RBC % Seg Neutrophils # Seg Neutrophils # Man 14.4 H Lymphocytes # (Manual) 0.6 L Monocytes # (Manual) Eosinophils # (Manual) Basophils # (Manual) PT INR Fibrinogen dRVVT Confirm Interp Factor V Activity POC ABG pH POC ABG pCO2 POC ABG pO2 ABG pO2 ABG HCO3 ABG Base Excess ABG Hemoglobin Oxyhemoglobin Sodium Potassium Chloride Carbon Dioxide 21 L BUN 93 H Creatinine 2.9 H Glucose 146 H POC Glucose 188 H Lactic Acid Calcium 8.1 L Phosphorus Magnesium Direct Bilirubin AST ALT Alkaline Phosphatase Lactate Dehydrogenase Troponin T C-Reactive Protein Total Protein Albumin Prealbumin Triglycerides Cholesterol LDL Cholesterol Direct HDL Cholesterol PTH Intact Urine pH Urine WBC (Auto) Urine Creatinine Urine Total Protein Fluid Total Protein Vancomycin Trough Rheumatoid Factor Complement C4 Miscellaneous Test Crossmatch 09/10/16 09/10/16 09/10/16 13:17 17:20 23:32 WBC RBC Hgb Hct MCV MCH MCHC RDW Plt Count Lymph % (Auto) [place] % (Auto) Lymph # [place] # Baso # Seg Neutrophils % Seg Neuts % (Manual) Lymphocytes % (Manual) Monocytes % (Manual) Eosinophils % (Manual) Basophils % (Manual) Nucleated RBC % Seg Neutrophils # Seg Neutrophils # Man Lymphocytes # (Manual) Monocytes # (Manual) Eosinophils # (Manual) Basophils # (Manual) PT INR Fibrinogen dRVVT Confirm Interp Factor V Activity POC ABG pH POC ABG pCO2 POC ABG pO2 ABG pO2 ABG HCO3 ABG Base Excess ABG Hemoglobin Oxyhemoglobin Sodium Potassium Chloride Carbon Dioxide BUN Creatinine Glucose POC Glucose 199 H 186 H Lactic Acid Calcium Phosphorus Magnesium Direct Bilirubin AST ALT Alkaline Phosphatase Lactate Dehydrogenase Troponin T C-Reactive Protein Total Protein Albumin Prealbumin Triglycerides Cholesterol LDL Cholesterol Direct HDL Cholesterol PTH Intact Urine pH Urine WBC (Auto) Urine Creatinine Urine Total Protein Fluid Total Protein Vancomycin Trough Rheumatoid Factor Complement C4 Miscellaneous Test Crossmatch See Detail 09/11/16 09/11/16 09/11/16 05:10 05:10 05:17 WBC 28.4 H RBC Hgb 9.2 L Hct 29.3 L D MCV 73 L MCH 23 L MCHC RDW 18.9 H Plt Count 452 H Lymph % (Auto) [place] % (Auto) Lymph # [place] # Baso # Seg Neutrophils % Seg Neuts % (Manual) 89.5 H Lymphocytes % (Manual) 2.0 L Monocytes % (Manual) Eosinophils % (Manual) Basophils % (Manual) Nucleated RBC % Seg Neutrophils # Seg Neutrophils # Man 25.4 H Lymphocytes # (Manual) 0.6 L Monocytes # (Manual) 1.3 H Eosinophils # (Manual) Basophils # (Manual) PT INR Fibrinogen dRVVT Confirm Interp Factor V Activity POC ABG pH POC ABG pCO2 POC ABG pO2 ABG pO2 ABG HCO3 ABG Base Excess ABG Hemoglobin Oxyhemoglobin Sodium 136 L Potassium Chloride Carbon Dioxide 18 L BUN 107 H Creatinine 2.6 H Glucose 187 H POC Glucose 230 H Lactic Acid Calcium 8.3 L Phosphorus Magnesium Direct Bilirubin AST ALT Alkaline Phosphatase Lactate Dehydrogenase Troponin T C-Reactive Protein Total Protein Albumin Prealbumin Triglycerides Cholesterol LDL Cholesterol Direct HDL Cholesterol PTH Intact Urine pH Urine WBC (Auto) Urine Creatinine Urine Total Protein Fluid Total Protein Vancomycin Trough Rheumatoid Factor Complement C4 Miscellaneous Test Crossmatch 09/11/16 09/11/16 09/11/16 05:55 12:02 17:32 WBC RBC Hgb Hct MCV MCH MCHC RDW Plt Count Lymph % (Auto) [place] % (Auto) Lymph # [place] # Baso # Seg Neutrophils % Seg Neuts % (Manual) Lymphocytes % (Manual) Monocytes % (Manual) Eosinophils % (Manual) Basophils % (Manual) Nucleated RBC % Seg Neutrophils # Seg Neutrophils # Man Lymphocytes # (Manual) Monocytes # (Manual) Eosinophils # (Manual) Basophils # (Manual) PT INR Fibrinogen dRVVT Confirm Interp Factor V Activity POC ABG pH POC ABG pCO2 33.8 L POC ABG pO2 ABG pO2 ABG HCO3 ABG Base Excess ABG Hemoglobin Oxyhemoglobin Sodium Potassium Chloride Carbon Dioxide BUN Creatinine Glucose POC Glucose 191 H 239 H Lactic Acid Calcium Phosphorus Magnesium Direct Bilirubin AST ALT Alkaline Phosphatase Lactate Dehydrogenase Troponin T C-Reactive Protein Total Protein Albumin Prealbumin Triglycerides Cholesterol LDL Cholesterol Direct HDL Cholesterol PTH Intact Urine pH Urine WBC (Auto) Urine Creatinine Urine Total Protein Fluid Total Protein Vancomycin Trough Rheumatoid Factor Complement C4 Miscellaneous Test Crossmatch 09/11/16 09/12/16 09/12/16 23:52 05:09 05:32 WBC RBC Hgb Hct MCV MCH MCHC RDW Plt Count Lymph % (Auto) [place] % (Auto) Lymph # [place] # Baso # Seg Neutrophils % Seg Neuts % (Manual) Lymphocytes % (Manual) Monocytes % (Manual) Eosinophils % (Manual) Basophils % (Manual) Nucleated RBC % Seg Neutrophils # Seg Neutrophils # Man Lymphocytes # (Manual) Monocytes # (Manual) Eosinophils # (Manual) Basophils # (Manual) PT INR Fibrinogen dRVVT Confirm Interp Factor V Activity POC ABG pH POC ABG pCO2 34.6 L POC ABG pO2 ABG pO2 ABG HCO3 ABG Base Excess ABG Hemoglobin Oxyhemoglobin Sodium Potassium Chloride Carbon Dioxide BUN Creatinine Glucose POC Glucose 265 H 184 H Lactic Acid Calcium Phosphorus Magnesium Direct Bilirubin AST ALT Alkaline Phosphatase Lactate Dehydrogenase Troponin T C-Reactive Protein Total Protein Albumin Prealbumin Triglycerides Cholesterol LDL Cholesterol Direct HDL Cholesterol PTH Intact Urine pH Urine WBC (Auto) Urine Creatinine Urine Total Protein Fluid Total Protein Vancomycin Trough Rheumatoid Factor Complement C4 Miscellaneous Test Crossmatch 09/12/16 09/12/16 09/12/16 06:45 06:45 07:22 WBC 31.7 H RBC 3.54 L Hgb 8.3 L Hct 25.9 L MCV 73 L MCH 23 L MCHC RDW 18.9 H Plt Count Lymph % (Auto) [place] % (Auto) Lymph # [place] # Baso # Seg Neutrophils % Seg Neuts % (Manual) 88.5 H Lymphocytes % (Manual) 4.5 L Monocytes % (Manual) Eosinophils % (Manual) Basophils % (Manual) Nucleated RBC % Seg Neutrophils # Seg Neutrophils # Man 28.1 H Lymphocytes # (Manual) Monocytes # (Manual) 1.0 H Eosinophils # (Manual) Basophils # (Manual) PT INR Fibrinogen dRVVT Confirm Interp Factor V Activity POC ABG pH POC ABG pCO2 POC ABG pO2 ABG pO2 ABG HCO3 ABG Base Excess ABG Hemoglobin Oxyhemoglobin Sodium Potassium Chloride Carbon Dioxide 20 L BUN 115 H Creatinine 2.7 H Glucose 165 H POC Glucose Lactic Acid Calcium 8.0 L Phosphorus Magnesium Direct Bilirubin AST ALT Alkaline Phosphatase Lactate Dehydrogenase Troponin T C-Reactive Protein Total Protein Albumin Prealbumin Triglycerides 217 H Cholesterol LDL Cholesterol Direct HDL Cholesterol PTH Intact Urine pH Urine WBC (Auto) Urine Creatinine Urine Total Protein Fluid Total Protein Vancomycin Trough Rheumatoid Factor Complement C4 Miscellaneous Test Crossmatch 09/12/16 09/12/16 09/12/16 07:22 09:59 12:21 WBC RBC Hgb Hct MCV MCH MCHC RDW Plt Count Lymph % (Auto) [place] % (Auto) Lymph # [place] # Baso # Seg Neutrophils % Seg Neuts % (Manual) Lymphocytes % (Manual) Monocytes % (Manual) Eosinophils % (Manual) Basophils % (Manual) Nucleated RBC % Seg Neutrophils # Seg Neutrophils # Man Lymphocytes # (Manual) Monocytes # (Manual) Eosinophils # (Manual) Basophils # (Manual) PT INR Fibrinogen dRVVT Confirm Interp Positive H Factor V Activity POC ABG pH POC ABG pCO2 POC ABG pO2 ABG pO2 ABG HCO3 ABG Base Excess ABG Hemoglobin Oxyhemoglobin Sodium Potassium Chloride Carbon Dioxide BUN Creatinine Glucose POC Glucose 224 H Lactic Acid Calcium Phosphorus Magnesium Direct Bilirubin AST ALT Alkaline Phosphatase Lactate Dehydrogenase Troponin T C-Reactive Protein 1.70 H Total Protein Albumin Prealbumin Triglycerides Cholesterol LDL Cholesterol Direct HDL Cholesterol PTH Intact Urine pH Urine WBC (Auto) Urine Creatinine Urine Total Protein Fluid Total Protein Vancomycin Trough Rheumatoid Factor Complement C4 Miscellaneous Test Crossmatch 09/12/16 09/12/16 09/13/16 16:51 23:28 04:00 WBC 45.0 H* RBC Hgb 9.4 L Hct MCV 75 L MCH 23 L MCHC RDW 19.0 H Plt Count 470 H Lymph % (Auto) [place] % (Auto) Lymph # [place] # Baso # Seg Neutrophils % Seg Neuts % (Manual) 89.0 H Lymphocytes % (Manual) 5.0 L Monocytes % (Manual) Eosinophils % (Manual) Basophils % (Manual) Nucleated RBC % Seg Neutrophils # Seg Neutrophils # Man 40.1 H Lymphocytes # (Manual) Monocytes # (Manual) Eosinophils # (Manual) Basophils # (Manual) PT INR Fibrinogen dRVVT Confirm Interp Factor V Activity POC ABG pH POC ABG pCO2 POC ABG pO2 ABG pO2 ABG HCO3 ABG Base Excess ABG Hemoglobin Oxyhemoglobin Sodium Potassium Chloride Carbon Dioxide BUN Creatinine Glucose POC Glucose 169 H 150 H Lactic Acid Calcium Phosphorus Magnesium Direct Bilirubin AST ALT Alkaline Phosphatase Lactate Dehydrogenase Troponin T C-Reactive Protein Total Protein Albumin Prealbumin Triglycerides Cholesterol LDL Cholesterol Direct HDL Cholesterol PTH Intact Urine pH Urine WBC (Auto) Urine Creatinine Urine Total Protein Fluid Total Protein Vancomycin Trough Rheumatoid Factor Complement C4 Miscellaneous Test Crossmatch 09/13/16 09/13/16 09/13/16 04:00 11:26 17:31 WBC RBC Hgb Hct MCV MCH MCHC RDW Plt Count Lymph % (Auto) [place] % (Auto) Lymph # [place] # Baso # Seg Neutrophils % Seg Neuts % (Manual) Lymphocytes % (Manual) Monocytes % (Manual) Eosinophils % (Manual) Basophils % (Manual) Nucleated RBC % Seg Neutrophils # Seg Neutrophils # Man Lymphocytes # (Manual) Monocytes # (Manual) Eosinophils # (Manual) Basophils # (Manual) PT INR Fibrinogen dRVVT Confirm Interp Factor V Activity POC ABG pH POC ABG pCO2 POC ABG pO2 ABG pO2 ABG HCO3 ABG Base Excess ABG Hemoglobin Oxyhemoglobin Sodium Potassium Chloride Carbon Dioxide 20 L BUN 116 H Creatinine 3.0 H Glucose 172 H POC Glucose 140 H 183 H Lactic Acid Calcium Phosphorus Magnesium Direct Bilirubin AST ALT Alkaline Phosphatase Lactate Dehydrogenase Troponin T C-Reactive Protein Total Protein 6.2 L Albumin 2.9 L Prealbumin Triglycerides Cholesterol LDL Cholesterol Direct HDL Cholesterol PTH Intact Urine pH Urine WBC (Auto) Urine Creatinine Urine Total Protein Fluid Total Protein Vancomycin Trough Rheumatoid Factor Complement C4 Miscellaneous Test Crossmatch 09/13/16 09/14/16 09/14/16 23:23 04:06 04:07 WBC 29.4 H RBC Hgb 8.9 L Hct 27.3 L MCV 75 L MCH 24 L MCHC RDW 19.1 H Plt Count Lymph % (Auto) [place] % (Auto) Lymph # [place] # Baso # Seg Neutrophils % Seg Neuts % (Manual) 84.0 H Lymphocytes % (Manual) 6.0 L Monocytes % (Manual) 9.0 H Eosinophils % (Manual) Basophils % (Manual) Nucleated RBC % Seg Neutrophils # Seg Neutrophils # Man 24.7 H Lymphocytes # (Manual) Monocytes # (Manual) 2.6 H Eosinophils # (Manual) Basophils # (Manual) PT INR Fibrinogen dRVVT Confirm Interp Factor V Activity POC ABG pH 7.342 L POC ABG pCO2 POC ABG pO2 116 H ABG pO2 ABG HCO3 ABG Base Excess ABG Hemoglobin Oxyhemoglobin Sodium Potassium Chloride Carbon Dioxide BUN Creatinine Glucose POC Glucose 154 H Lactic Acid Calcium Phosphorus Magnesium Direct Bilirubin AST ALT Alkaline Phosphatase Lactate Dehydrogenase Troponin T C-Reactive Protein Total Protein Albumin Prealbumin Triglycerides Cholesterol LDL Cholesterol Direct HDL Cholesterol PTH Intact Urine pH Urine WBC (Auto) Urine Creatinine Urine Total Protein Fluid Total Protein Vancomycin Trough Rheumatoid Factor Complement C4 Miscellaneous Test Crossmatch 09/14/16 09/14/16 09/14/16 04:07 05:29 12:19 WBC RBC Hgb Hct MCV MCH MCHC RDW Plt Count Lymph % (Auto) [place] % (Auto) Lymph # [place] # Baso # Seg Neutrophils % Seg Neuts % (Manual) Lymphocytes % (Manual) Monocytes % (Manual) Eosinophils % (Manual) Basophils % (Manual) Nucleated RBC % Seg Neutrophils # Seg Neutrophils # Man Lymphocytes # (Manual) Monocytes # (Manual) Eosinophils # (Manual) Basophils # (Manual) PT INR Fibrinogen dRVVT Confirm Interp Factor V Activity POC ABG pH POC ABG pCO2 POC ABG pO2 ABG pO2 ABG HCO3 ABG Base Excess ABG Hemoglobin Oxyhemoglobin Sodium 136 L Potassium Chloride Carbon Dioxide 18 L BUN 121 H Creatinine 2.8 H Glucose 214 H POC Glucose 239 H 181 H Lactic Acid Calcium Phosphorus Magnesium Direct Bilirubin AST ALT Alkaline Phosphatase Lactate Dehydrogenase Troponin T C-Reactive Protein Total Protein Albumin Prealbumin Triglycerides Cholesterol LDL Cholesterol Direct HDL Cholesterol PTH Intact Urine pH Urine WBC (Auto) Urine Creatinine Urine Total Protein Fluid Total Protein Vancomycin Trough Rheumatoid Factor Complement C4 Miscellaneous Test Crossmatch 09/14/16 09/14/16 09/15/16 18:12 23:37 05:00 WBC 26.1 H RBC 3.05 L Hgb 7.2 L Hct 22.9 L MCV 75 L MCH 24 L MCHC RDW 19.0 H Plt Count Lymph % (Auto) [place] % (Auto) Lymph # [place] # Baso # Seg Neutrophils % Seg Neuts % (Manual) Lymphocytes % (Manual) Monocytes % (Manual) Eosinophils % (Manual) Basophils % (Manual) Nucleated RBC % Seg Neutrophils # Seg Neutrophils # Man Lymphocytes # (Manual) Monocytes # (Manual) Eosinophils # (Manual) Basophils # (Manual) PT INR Fibrinogen dRVVT Confirm Interp Factor V Activity POC ABG pH POC ABG pCO2 POC ABG pO2 ABG pO2 ABG HCO3 ABG Base Excess ABG Hemoglobin Oxyhemoglobin Sodium Potassium Chloride Carbon Dioxide BUN Creatinine Glucose POC Glucose 266 H 154 H Lactic Acid Calcium Phosphorus Magnesium Direct Bilirubin AST ALT Alkaline Phosphatase Lactate Dehydrogenase Troponin T C-Reactive Protein Total Protein Albumin Prealbumin Triglycerides Cholesterol LDL Cholesterol Direct HDL Cholesterol PTH Intact Urine pH Urine WBC (Auto) Urine Creatinine Urine Total Protein Fluid Total Protein Vancomycin Trough Rheumatoid Factor Complement C4 Miscellaneous Test Crossmatch 09/15/16 09/15/16 09/15/16 05:00 05:17 12:45 WBC RBC Hgb Hct MCV MCH MCHC RDW Plt Count Lymph % (Auto) [place] % (Auto) Lymph # [place] # Baso # Seg Neutrophils % Seg Neuts % (Manual) Lymphocytes % (Manual) Monocytes % (Manual) Eosinophils % (Manual) Basophils % (Manual) Nucleated RBC % Seg Neutrophils # Seg Neutrophils # Man Lymphocytes # (Manual) Monocytes # (Manual) Eosinophils # (Manual) Basophils # (Manual) PT INR Fibrinogen dRVVT Confirm Interp Factor V Activity POC ABG pH POC ABG pCO2 POC ABG pO2 ABG pO2 ABG HCO3 ABG Base Excess ABG Hemoglobin Oxyhemoglobin Sodium Potassium 5.2 H Chloride Carbon Dioxide 18 L BUN 139 H Creatinine 3.7 H Glucose 227 H POC Glucose 226 H 244 H Lactic Acid Calcium 8.3 L Phosphorus Magnesium Direct Bilirubin AST ALT Alkaline Phosphatase Lactate Dehydrogenase Troponin T C-Reactive Protein Total Protein Albumin Prealbumin Triglycerides Cholesterol LDL Cholesterol Direct HDL Cholesterol PTH Intact Urine pH Urine WBC (Auto) Urine Creatinine Urine Total Protein Fluid Total Protein Vancomycin Trough Rheumatoid Factor Complement C4 Miscellaneous Test Crossmatch 09/15/16 09/15/16 09/15/16 14:32 17:33 23:35 WBC RBC Hgb Hct MCV MCH MCHC RDW Plt Count Lymph % (Auto) [place] % (Auto) Lymph # [place] # Baso # Seg Neutrophils % Seg Neuts % (Manual) Lymphocytes % (Manual) Monocytes % (Manual) Eosinophils % (Manual) Basophils % (Manual) Nucleated RBC % Seg Neutrophils # Seg Neutrophils # Man Lymphocytes # (Manual) Monocytes # (Manual) Eosinophils # (Manual) Basophils # (Manual) PT INR Fibrinogen dRVVT Confirm Interp Factor V Activity POC ABG pH POC ABG pCO2 27.7 L POC ABG pO2 120 H ABG pO2 ABG HCO3 ABG Base Excess ABG Hemoglobin Oxyhemoglobin Sodium Potassium Chloride Carbon Dioxide BUN Creatinine Glucose POC Glucose 232 H 167 H Lactic Acid Calcium Phosphorus Magnesium Direct Bilirubin AST ALT Alkaline Phosphatase Lactate Dehydrogenase Troponin T C-Reactive Protein Total Protein Albumin Prealbumin Triglycerides Cholesterol LDL Cholesterol Direct HDL Cholesterol PTH Intact Urine pH Urine WBC (Auto) Urine Creatinine Urine Total Protein Fluid Total Protein Vancomycin Trough Rheumatoid Factor Complement C4 Miscellaneous Test Crossmatch 09/16/16 09/16/16 09/16/16 03:58 10:27 10:27 WBC 19.0 H RBC 2.77 L Hgb 6.5 L Hct 20.9 L MCV 76 L MCH 23 L MCHC RDW 19.3 H Plt Count Lymph % (Auto) 11.0 L [place] % (Auto) Lymph # [place] # 1.1 H Baso # Seg Neutrophils % 82.5 H Seg Neuts % (Manual) Lymphocytes % (Manual) Monocytes % (Manual) Eosinophils % (Manual) Basophils % (Manual) Nucleated RBC % Seg Neutrophils # 15.7 H Seg Neutrophils # Man Lymphocytes # (Manual) Monocytes # (Manual) Eosinophils # (Manual) Basophils # (Manual) PT INR Fibrinogen dRVVT Confirm Interp Factor V Activity POC ABG pH POC ABG pCO2 POC ABG pO2 ABG pO2 ABG HCO3 ABG Base Excess ABG Hemoglobin Oxyhemoglobin Sodium Potassium Chloride 109.3 H Carbon Dioxide 18 L BUN 139 H Creatinine 4.1 H Glucose 144 H POC Glucose 146 H Lactic Acid Calcium 8.1 L Phosphorus Magnesium Direct Bilirubin AST ALT Alkaline Phosphatase Lactate Dehydrogenase Troponin T C-Reactive Protein Total Protein Albumin Prealbumin Triglycerides Cholesterol LDL Cholesterol Direct HDL Cholesterol PTH Intact Urine pH Urine WBC (Auto) Urine Creatinine Urine Total Protein Fluid Total Protein Vancomycin Trough Rheumatoid Factor Complement C4 Miscellaneous Test Crossmatch 09/16/16 09/16/16 09/16/16 12:04 12:10 13:55 WBC RBC Hgb Hct MCV MCH MCHC RDW Plt Count Lymph % (Auto) [place] % (Auto) Lymph # [place] # Baso # Seg Neutrophils % Seg Neuts % (Manual) Lymphocytes % (Manual) Monocytes % (Manual) Eosinophils % (Manual) Basophils % (Manual) Nucleated RBC % Seg Neutrophils # Seg Neutrophils # Man Lymphocytes # (Manual) Monocytes # (Manual) Eosinophils # (Manual) Basophils # (Manual) PT INR Fibrinogen dRVVT Confirm Interp Factor V Activity POC ABG pH POC ABG pCO2 32.9 L POC ABG pO2 ABG pO2 ABG HCO3 ABG Base Excess ABG Hemoglobin Oxyhemoglobin Sodium Potassium Chloride Carbon Dioxide BUN Creatinine Glucose POC Glucose 185 H Lactic Acid Calcium Phosphorus Magnesium Direct Bilirubin AST ALT Alkaline Phosphatase Lactate Dehydrogenase Troponin T C-Reactive Protein Total Protein Albumin Prealbumin Triglycerides Cholesterol LDL Cholesterol Direct HDL Cholesterol PTH Intact Urine pH Urine WBC (Auto) Urine Creatinine Urine Total Protein Fluid Total Protein Vancomycin Trough Rheumatoid Factor Complement C4 Miscellaneous Test Crossmatch See Detail 09/16/16 09/16/16 09/16/16 17:55 19:19 23:48 WBC RBC Hgb Hct MCV MCH MCHC RDW Plt Count Lymph % (Auto) [place] % (Auto) Lymph # [place] # Baso # Seg Neutrophils % Seg Neuts % (Manual) Lymphocytes % (Manual) Monocytes % (Manual) Eosinophils % (Manual) Basophils % (Manual) Nucleated RBC % Seg Neutrophils # Seg Neutrophils # Man Lymphocytes # (Manual) Monocytes # (Manual) Eosinophils # (Manual) Basophils # (Manual) PT INR Fibrinogen dRVVT Confirm Interp Factor V Activity POC ABG pH POC ABG pCO2 POC ABG pO2 ABG pO2 ABG HCO3 ABG Base Excess ABG Hemoglobin Oxyhemoglobin Sodium Potassium Chloride Carbon Dioxide BUN Creatinine Glucose POC Glucose 222 H 107 H Lactic Acid Calcium Phosphorus Magnesium Direct Bilirubin AST ALT Alkaline Phosphatase Lactate Dehydrogenase Troponin T C-Reactive Protein Total Protein Albumin Prealbumin Triglycerides Cholesterol LDL Cholesterol Direct HDL Cholesterol PTH Intact Urine pH Urine WBC (Auto) Urine Creatinine 47.4 H Urine Total Protein 16 H Fluid Total Protein Vancomycin Trough Rheumatoid Factor Complement C4 Miscellaneous Test Crossmatch 09/17/16 09/17/16 09/17/16 03:45 03:45 04:55 WBC 19.6 H RBC 3.41 L Hgb 8.5 L Hct 26.7 L MCV 78 L MCH 25 L MCHC RDW 19.9 H Plt Count Lymph % (Auto) 9.3 L [place] % (Auto) Lymph # [place] # 1.2 H Baso # Seg Neutrophils % 83.9 H Seg Neuts % (Manual) Lymphocytes % (Manual) Monocytes % (Manual) Eosinophils % (Manual) Basophils % (Manual) Nucleated RBC % Seg Neutrophils # 16.4 H Seg Neutrophils # Man Lymphocytes # (Manual) Monocytes # (Manual) Eosinophils # (Manual) Basophils # (Manual) PT INR Fibrinogen dRVVT Confirm Interp Factor V Activity POC ABG pH POC ABG pCO2 POC ABG pO2 ABG pO2 ABG HCO3 ABG Base Excess ABG Hemoglobin Oxyhemoglobin Sodium 146 H Potassium 5.1 H Chloride 110.9 H Carbon Dioxide 16 L BUN 146 H Creatinine 4.0 H Glucose 108 H POC Glucose 133 H Lactic Acid Calcium Phosphorus Magnesium 3.00 H Direct Bilirubin AST ALT Alkaline Phosphatase Lactate Dehydrogenase Troponin T C-Reactive Protein Total Protein Albumin Prealbumin Triglycerides Cholesterol LDL Cholesterol Direct HDL Cholesterol PTH Intact Urine pH Urine WBC (Auto) Urine Creatinine Urine Total Protein Fluid Total Protein Vancomycin Trough Rheumatoid Factor Complement C4 Miscellaneous Test Crossmatch 09/17/16 09/17/16 09/17/16 11:15 17:33 23:47 WBC RBC Hgb Hct MCV MCH MCHC RDW Plt Count Lymph % (Auto) [place] % (Auto) Lymph # [place] # Baso # Seg Neutrophils % Seg Neuts % (Manual) Lymphocytes % (Manual) Monocytes % (Manual) Eosinophils % (Manual) Basophils % (Manual) Nucleated RBC % Seg Neutrophils # Seg Neutrophils # Man Lymphocytes # (Manual) Monocytes # (Manual) Eosinophils # (Manual) Basophils # (Manual) PT INR Fibrinogen dRVVT Confirm Interp Factor V Activity POC ABG pH POC ABG pCO2 POC ABG pO2 ABG pO2 ABG HCO3 ABG Base Excess ABG Hemoglobin Oxyhemoglobin Sodium Potassium Chloride Carbon Dioxide BUN Creatinine Glucose POC Glucose 176 H 246 H 148 H Lactic Acid Calcium Phosphorus Magnesium Direct Bilirubin AST ALT Alkaline Phosphatase Lactate Dehydrogenase Troponin T C-Reactive Protein Total Protein Albumin Prealbumin Triglycerides Cholesterol LDL Cholesterol Direct HDL Cholesterol PTH Intact Urine pH Urine WBC (Auto) Urine Creatinine Urine Total Protein Fluid Total Protein Vancomycin Trough Rheumatoid Factor Complement C4 Miscellaneous Test Crossmatch 09/18/16 09/18/16 09/18/16 05:33 08:31 08:31 WBC 18.0 H RBC 3.17 L Hgb 9.0 L Hct 25.7 L MCV MCH MCHC 35 H RDW 20.4 H Plt Count Lymph % (Auto) [place] % (Auto) Lymph # [place] # Baso # Seg Neutrophils % Seg Neuts % (Manual) Lymphocytes % (Manual) Monocytes % (Manual) Eosinophils % (Manual) Basophils % (Manual) Nucleated RBC % Seg Neutrophils # Seg Neutrophils # Man Lymphocytes # (Manual) Monocytes # (Manual) Eosinophils # (Manual) Basophils # (Manual) PT INR Fibrinogen dRVVT Confirm Interp Factor V Activity POC ABG pH POC ABG pCO2 POC ABG pO2 ABG pO2 ABG HCO3 ABG Base Excess ABG Hemoglobin Oxyhemoglobin Sodium Potassium Chloride Carbon Dioxide 15 L BUN 124 H Creatinine 3.8 H Glucose POC Glucose 120 H Lactic Acid Calcium 8.1 L Phosphorus Magnesium Direct Bilirubin AST ALT Alkaline Phosphatase Lactate Dehydrogenase Troponin T C-Reactive Protein Total Protein Albumin Prealbumin Triglycerides Cholesterol LDL Cholesterol Direct HDL Cholesterol PTH Intact Urine pH Urine WBC (Auto) Urine Creatinine Urine Total Protein Fluid Total Protein Vancomycin Trough Rheumatoid Factor Complement C4 Miscellaneous Test Crossmatch 09/18/16 09/18/16 09/18/16 12:03 15:34 17:50 WBC RBC Hgb Hct MCV MCH MCHC RDW Plt Count Lymph % (Auto) [place] % (Auto) Lymph # [place] # Baso # Seg Neutrophils % Seg Neuts % (Manual) Lymphocytes % (Manual) Monocytes % (Manual) Eosinophils % (Manual) Basophils % (Manual) Nucleated RBC % Seg Neutrophils # Seg Neutrophils # Man Lymphocytes # (Manual) Monocytes # (Manual) Eosinophils # (Manual) Basophils # (Manual) PT INR Fibrinogen dRVVT Confirm Interp Factor V Activity POC ABG pH POC ABG pCO2 25.7 L POC ABG pO2 66 L ABG pO2 ABG HCO3 ABG Base Excess ABG Hemoglobin Oxyhemoglobin Sodium Potassium Chloride Carbon Dioxide BUN Creatinine Glucose POC Glucose 156 H 220 H Lactic Acid Calcium Phosphorus Magnesium Direct Bilirubin AST ALT Alkaline Phosphatase Lactate Dehydrogenase Troponin T C-Reactive Protein Total Protein Albumin Prealbumin Triglycerides Cholesterol LDL Cholesterol Direct HDL Cholesterol PTH Intact Urine pH Urine WBC (Auto) Urine Creatinine Urine Total Protein Fluid Total Protein Vancomycin Trough Rheumatoid Factor Complement C4 Miscellaneous Test Crossmatch 09/19/16 09/19/1609/19/17 06:21 09:50 09:50 WBC 17.1 H RBC 3.49 L Hgb 9.0 L Hct 28.1 L MCV MCH 26 L MCHC RDW 20.8 H Plt Count Lymph % (Auto) 11.5 L [place] % (Auto) 7.5 H Lymph # [place] # 1.3 H Baso # Seg Neutrophils % 79.8 H Seg Neuts % (Manual) Lymphocytes % (Manual) Monocytes % (Manual) Eosinophils % (Manual) Basophils % (Manual) Nucleated RBC % Seg Neutrophils # 13.7 H Seg Neutrophils # Man Lymphocytes # (Manual) Monocytes # (Manual) Eosinophils # (Manual) Basophils # (Manual) PT INR Fibrinogen dRVVT Confirm Interp Factor V Activity POC ABG pH POC ABG pCO2 POC ABG pO2 ABG pO2 ABG HCO3 ABG Base Excess ABG Hemoglobin Oxyhemoglobin Sodium Potassium Chloride 108.6 H Carbon Dioxide 15 L BUN 125 H Creatinine 4.1 H Glucose 124 H POC Glucose 119 H Lactic Acid Calcium Phosphorus Magnesium Direct Bilirubin AST ALT Alkaline Phosphatase Lactate Dehydrogenase Troponin T C-Reactive Protein Total Protein Albumin Prealbumin Triglycerides Cholesterol LDL Cholesterol Direct HDL Cholesterol PTH Intact Urine pH Urine WBC (Auto) Urine Creatinine Urine Total Protein Fluid Total Protein Vancomycin Trough Rheumatoid Factor Complement C4 Miscellaneous Test Crossmatch 09/19/16 09/19/16 09/19/16 11:25 17:53 23:36 WBC RBC Hgb Hct MCV MCH MCHC RDW Plt Count Lymph % (Auto) [place] % (Auto) Lymph # [place] # Baso # Seg Neutrophils % Seg Neuts % (Manual) Lymphocytes % (Manual) Monocytes % (Manual) Eosinophils % (Manual) Basophils % (Manual) Nucleated RBC % Seg Neutrophils # Seg Neutrophils # Man Lymphocytes # (Manual) Monocytes # (Manual) Eosinophils # (Manual) Basophils # (Manual) PT INR Fibrinogen dRVVT Confirm Interp Factor V Activity POC ABG pH POC ABG pCO2 POC ABG pO2 ABG pO2 ABG HCO3 ABG Base Excess ABG Hemoglobin Oxyhemoglobin Sodium Potassium Chloride Carbon Dioxide BUN Creatinine Glucose POC Glucose 160 H 245 H 121 H Lactic Acid Calcium Phosphorus Magnesium Direct Bilirubin AST ALT Alkaline Phosphatase Lactate Dehydrogenase Troponin T C-Reactive Protein Total Protein Albumin Prealbumin Triglycerides Cholesterol LDL Cholesterol Direct HDL Cholesterol PTH Intact Urine pH Urine WBC (Auto) Urine Creatinine Urine Total Protein Fluid Total Protein Vancomycin Trough Rheumatoid Factor Complement C4 Miscellaneous Test Crossmatch 09/20/16 09/20/16 09/20/16 04:10 04:10 04:10 WBC 17.0 H RBC 3.21 L Hgb 8.2 L Hct 25.5 L MCV MCH 26 L MCHC RDW 20.9 H Plt Count Lymph % (Auto) [place] % (Auto) Lymph # [place] # Baso # Seg Neutrophils % Seg Neuts % (Manual) Lymphocytes % (Manual) Monocytes % (Manual) Eosinophils % (Manual) Basophils % (Manual) Nucleated RBC % Seg Neutrophils # Seg Neutrophils # Man Lymphocytes # (Manual) Monocytes # (Manual) Eosinophils # (Manual) Basophils # (Manual) PT INR Fibrinogen dRVVT Confirm Interp Factor V Activity POC ABG pH POC ABG pCO2 POC ABG pO2 ABG pO2 ABG HCO3 ABG Base Excess ABG Hemoglobin Oxyhemoglobin Sodium Potassium Chloride 111.0 H Carbon Dioxide 16 L BUN 129 H Creatinine 3.7 H Glucose 115 H POC Glucose Lactic Acid Calcium 8.2 L Phosphorus Magnesium Direct Bilirubin AST ALT Alkaline Phosphatase Lactate Dehydrogenase Troponin T C-Reactive Protein Total Protein Albumin Prealbumin Triglycerides 243 H Cholesterol LDL Cholesterol Direct HDL Cholesterol PTH Intact Urine pH Urine WBC (Auto) Urine Creatinine Urine Total Protein Fluid Total Protein Vancomycin Trough Rheumatoid Factor Complement C4 Miscellaneous Test Crossmatch 09/20/16 09/20/16 09/20/16 05:40 11:52 16:50 WBC RBC Hgb Hct MCV MCH MCHC RDW Plt Count Lymph % (Auto) [place] % (Auto) Lymph # [place] # Baso # Seg Neutrophils % Seg Neuts % (Manual) Lymphocytes % (Manual) Monocytes % (Manual) Eosinophils % (Manual) Basophils % (Manual) Nucleated RBC % Seg Neutrophils # Seg Neutrophils # Man Lymphocytes # (Manual) Monocytes # (Manual) Eosinophils # (Manual) Basophils # (Manual) PT INR Fibrinogen dRVVT Confirm Interp Factor V Activity POC ABG pH POC ABG pCO2 POC ABG pO2 ABG pO2 ABG HCO3 ABG Base Excess ABG Hemoglobin Oxyhemoglobin Sodium Potassium Chloride Carbon Dioxide BUN Creatinine Glucose POC Glucose 131 H 183 H 236 H Lactic Acid Calcium Phosphorus Magnesium Direct Bilirubin AST ALT Alkaline Phosphatase Lactate Dehydrogenase Troponin T C-Reactive Protein Total Protein Albumin Prealbumin Triglycerides Cholesterol LDL Cholesterol Direct HDL Cholesterol PTH Intact Urine pH Urine WBC (Auto) Urine Creatinine Urine Total Protein Fluid Total Protein Vancomycin Trough Rheumatoid Factor Complement C4 Miscellaneous Test Crossmatch 09/20/16 09/21/16 09/21/16 23:51 03:30 04:44 WBC RBC Hgb Hct MCV MCH MCHC RDW Plt Count Lymph % (Auto) [place] % (Auto) Lymph # [place] # Baso # Seg Neutrophils % Seg Neuts % (Manual) Lymphocytes % (Manual) Monocytes % (Manual) Eosinophils % (Manual) Basophils % (Manual) Nucleated RBC % Seg Neutrophils # Seg Neutrophils # Man Lymphocytes # (Manual) Monocytes # (Manual) Eosinophils # (Manual) Basophils # (Manual) PT INR Fibrinogen dRVVT Confirm Interp Factor V Activity POC ABG pH POC ABG pCO2 POC ABG pO2 ABG pO2 ABG HCO3 ABG Base Excess ABG Hemoglobin Oxyhemoglobin Sodium Potassium Chloride Carbon Dioxide BUN Creatinine Glucose POC Glucose 114 H 141 H Lactic Acid Calcium Phosphorus Magnesium 2.70 H Direct Bilirubin AST ALT Alkaline Phosphatase Lactate Dehydrogenase Troponin T C-Reactive Protein Total Protein Albumin Prealbumin Triglycerides Cholesterol LDL Cholesterol Direct HDL Cholesterol PTH Intact Urine pH Urine WBC (Auto) Urine Creatinine Urine Total Protein Fluid Total Protein Vancomycin Trough Rheumatoid Factor Complement C4 Miscellaneous Test Crossmatch 09/21/16 09/21/16 09/21/16 07:45 07:45 10:01 WBC 13.8 H RBC 2.94 L Hgb 7.5 L Hct 23.5 L MCV MCH 26 L MCHC RDW 21.2 H Plt Count Lymph % (Auto) 6.9 L [place] % (Auto) 9.4 H Lymph # 0.9 L [place] # 1.3 H Baso # Seg Neutrophils % 83.2 H Seg Neuts % (Manual) Lymphocytes % (Manual) Monocytes % (Manual) Eosinophils % (Manual) Basophils % (Manual) Nucleated RBC % Seg Neutrophils # 11.5 H Seg Neutrophils # Man Lymphocytes # (Manual) Monocytes # (Manual) Eosinophils # (Manual) Basophils # (Manual) PT INR Fibrinogen dRVVT Confirm Interp Factor V Activity POC ABG pH 7.308 L POC ABG pCO2 31.9 L POC ABG pO2 148 H ABG pO2 ABG HCO3 ABG Base Excess ABG Hemoglobin Oxyhemoglobin Sodium 147 H Potassium Chloride 114.2 H Carbon Dioxide 15 L BUN 120 H Creatinine 3.9 H Glucose 156 H POC Glucose Lactic Acid Calcium 8.2 L Phosphorus Magnesium Direct Bilirubin AST ALT Alkaline Phosphatase Lactate Dehydrogenase Troponin T C-Reactive Protein Total Protein Albumin Prealbumin Triglycerides Cholesterol LDL Cholesterol Direct HDL Cholesterol PTH Intact Urine pH Urine WBC (Auto) Urine Creatinine Urine Total Protein Fluid Total Protein Vancomycin Trough Rheumatoid Factor Complement C4 Miscellaneous Test Crossmatch 09/21/16 09/21/16 09/21/16 12:00 12:03 13:00 WBC RBC Hgb Hct MCV MCH MCHC RDW Plt Count Lymph % (Auto) [place] % (Auto) Lymph # [place] # Baso # Seg Neutrophils % Seg Neuts % (Manual) Lymphocytes % (Manual) Monocytes % (Manual) Eosinophils % (Manual) Basophils % (Manual) Nucleated RBC % Seg Neutrophils # Seg Neutrophils # Man Lymphocytes # (Manual) Monocytes # (Manual) Eosinophils # (Manual) Basophils # (Manual) PT INR Fibrinogen dRVVT Confirm Interp Factor V Activity POC ABG pH POC ABG pCO2 POC ABG pO2 ABG pO2 ABG HCO3 ABG Base Excess ABG Hemoglobin Oxyhemoglobin Sodium Potassium Chloride Carbon Dioxide BUN Creatinine Glucose POC Glucose 163 H Lactic Acid Calcium Phosphorus Magnesium Direct Bilirubin AST ALT Alkaline Phosphatase Lactate Dehydrogenase Troponin T C-Reactive Protein Total Protein Albumin Prealbumin Triglycerides Cholesterol LDL Cholesterol Direct HDL Cholesterol PTH Intact Urine pH Urine WBC (Auto) Urine Creatinine 54.8 H Urine Total Protein Fluid Total Protein Vancomycin Trough 2.3 L Rheumatoid Factor Complement C4 Miscellaneous Test Crossmatch 09/21/16 09/21/16 09/22/16 16:51 23:17 06:27 WBC RBC Hgb Hct MCV MCH MCHC RDW Plt Count Lymph % (Auto) [place] % (Auto) Lymph # [place] # Baso # Seg Neutrophils % Seg Neuts % (Manual) Lymphocytes % (Manual) Monocytes % (Manual) Eosinophils % (Manual) Basophils % (Manual) Nucleated RBC % Seg Neutrophils # Seg Neutrophils # Man Lymphocytes # (Manual) Monocytes # (Manual) Eosinophils # (Manual) Basophils # (Manual) PT INR Fibrinogen dRVVT Confirm Interp Factor V Activity POC ABG pH POC ABG pCO2 POC ABG pO2 ABG pO2 ABG HCO3 ABG Base Excess ABG Hemoglobin Oxyhemoglobin Sodium Potassium Chloride Carbon Dioxide BUN Creatinine Glucose POC Glucose 206 H 114 H 115 H Lactic Acid Calcium Phosphorus Magnesium Direct Bilirubin AST ALT Alkaline Phosphatase Lactate Dehydrogenase Troponin T C-Reactive Protein Total Protein Albumin Prealbumin Triglycerides Cholesterol LDL Cholesterol Direct HDL Cholesterol PTH Intact Urine pH Urine WBC (Auto) Urine Creatinine Urine Total Protein Fluid Total Protein Vancomycin Trough Rheumatoid Factor Complement C4 Miscellaneous Test Crossmatch 09/22/16 09/22/16 09/22/16 07:50 07:50 12:00 WBC 17.8 H RBC 3.04 L Hgb 8.0 L Hct 24.7 L MCV MCH 26 L MCHC RDW 21.6 H Plt Count Lymph % (Auto) [place] % (Auto) Lymph # [place] # Baso # Seg Neutrophils % Seg Neuts % (Manual) Lymphocytes % (Manual) Monocytes % (Manual) Eosinophils % (Manual) Basophils % (Manual) Nucleated RBC % Seg Neutrophils # Seg Neutrophils # Man Lymphocytes # (Manual) Monocytes # (Manual) Eosinophils # (Manual) Basophils # (Manual) PT INR Fibrinogen dRVVT Confirm Interp Factor V Activity POC ABG pH POC ABG pCO2 POC ABG pO2 ABG pO2 ABG HCO3 ABG Base Excess ABG Hemoglobin Oxyhemoglobin Sodium 150 H Potassium Chloride 118.2 H Carbon Dioxide 14 L BUN 111 H Creatinine 3.7 H Glucose 157 H POC Glucose 183 H Lactic Acid Calcium Phosphorus Magnesium Direct Bilirubin AST ALT Alkaline Phosphatase Lactate Dehydrogenase Troponin T C-Reactive Protein Total Protein Albumin Prealbumin Triglycerides Cholesterol LDL Cholesterol Direct HDL Cholesterol PTH Intact Urine pH Urine WBC (Auto) Urine Creatinine Urine Total Protein Fluid Total Protein Vancomycin Trough Rheumatoid Factor Complement C4 Miscellaneous Test Crossmatch 09/22/16 09/22/16 09/23/16 17:29 23:10 05:00 WBC 19.2 H RBC 3.13 L Hgb 8.0 L Hct 25.2 L MCV MCH 26 L MCHC RDW 22.1 H Plt Count Lymph % (Auto) [place] % (Auto) Lymph # [place] # Baso # Seg Neutrophils % Seg Neuts % (Manual) 92.0 H Lymphocytes % (Manual) 3.0 L Monocytes % (Manual) Eosinophils % (Manual) Basophils % (Manual) Nucleated RBC % Seg Neutrophils # Seg Neutrophils # Man 17.7 H Lymphocytes # (Manual) 0.6 L Monocytes # (Manual) Eosinophils # (Manual) Basophils # (Manual) PT INR Fibrinogen dRVVT Confirm Interp Factor V Activity POC ABG pH POC ABG pCO2 POC ABG pO2 ABG pO2 ABG HCO3 ABG Base Excess ABG Hemoglobin Oxyhemoglobin Sodium Potassium Chloride Carbon Dioxide BUN Creatinine Glucose POC Glucose 197 H 169 H Lactic Acid Calcium Phosphorus Magnesium Direct Bilirubin AST ALT Alkaline Phosphatase Lactate Dehydrogenase Troponin T C-Reactive Protein Total Protein Albumin Prealbumin Triglycerides Cholesterol LDL Cholesterol Direct HDL Cholesterol PTH Intact Urine pH Urine WBC (Auto) Urine Creatinine Urine Total Protein Fluid Total Protein Vancomycin Trough Rheumatoid Factor Complement C4 Miscellaneous Test Crossmatch 09/23/16 09/23/16 09/23/16 05:00 05:00 05:10 WBC RBC Hgb Hct MCV MCH MCHC RDW Plt Count Lymph % (Auto) [place] % (Auto) Lymph # [place] # Baso # Seg Neutrophils % Seg Neuts % (Manual) Lymphocytes % (Manual) Monocytes % (Manual) Eosinophils % (Manual) Basophils % (Manual) Nucleated RBC % Seg Neutrophils # Seg Neutrophils # Man Lymphocytes # (Manual) Monocytes # (Manual) Eosinophils # (Manual) Basophils # (Manual) PT INR Fibrinogen dRVVT Confirm Interp Factor V Activity POC ABG pH POC ABG pCO2 POC ABG pO2 ABG pO2 ABG HCO3 ABG Base Excess ABG Hemoglobin Oxyhemoglobin Sodium 147 H Potassium 3.2 L Chloride 115.7 H Carbon Dioxide 13 L BUN 111 H Creatinine 3.8 H Glucose 194 H POC Glucose 188 H Lactic Acid Calcium 7.3 L D Phosphorus Magnesium Direct Bilirubin AST ALT Alkaline Phosphatase Lactate Dehydrogenase Troponin T C-Reactive Protein 3.20 H Total Protein Albumin Prealbumin Triglycerides Cholesterol LDL Cholesterol Direct HDL Cholesterol PTH Intact Urine pH Urine WBC (Auto) Urine Creatinine Urine Total Protein Fluid Total Protein Vancomycin Trough Rheumatoid Factor Complement C4 Miscellaneous Test Crossmatch 09/23/16 09/23/16 09/23/16 11:37 12:29 18:01 WBC RBC Hgb Hct MCV MCH MCHC RDW Plt Count Lymph % (Auto) [place] % (Auto) Lymph # [place] # Baso # Seg Neutrophils % Seg Neuts % (Manual) Lymphocytes % (Manual) Monocytes % (Manual) Eosinophils % (Manual) Basophils % (Manual) Nucleated RBC % Seg Neutrophils # Seg Neutrophils # Man Lymphocytes # (Manual) Monocytes # (Manual) Eosinophils # (Manual) Basophils # (Manual) PT INR Fibrinogen dRVVT Confirm Interp Factor V Activity POC ABG pH POC ABG pCO2 18.9 L POC ABG pO2 143 H ABG pO2 ABG HCO3 ABG Base Excess ABG Hemoglobin Oxyhemoglobin Sodium Potassium Chloride Carbon Dioxide BUN Creatinine Glucose POC Glucose 153 H 108 H Lactic Acid Calcium Phosphorus Magnesium Direct Bilirubin AST ALT Alkaline Phosphatase Lactate Dehydrogenase Troponin T C-Reactive Protein Total Protein Albumin Prealbumin Triglycerides Cholesterol LDL Cholesterol Direct HDL Cholesterol PTH Intact Urine pH Urine WBC (Auto) Urine Creatinine Urine Total Protein Fluid Total Protein Vancomycin Trough Rheumatoid Factor Complement C4 Miscellaneous Test Crossmatch 09/23/16 09/23/16 09/24/16 21:19 23:43 05:16 WBC RBC Hgb Hct MCV MCH MCHC RDW Plt Count Lymph % (Auto) [place] % (Auto) Lymph # [place] # Baso # Seg Neutrophils % Seg Neuts % (Manual) Lymphocytes % (Manual) Monocytes % (Manual) Eosinophils % (Manual) Basophils % (Manual) Nucleated RBC % Seg Neutrophils # Seg Neutrophils # Man Lymphocytes # (Manual) Monocytes # (Manual) Eosinophils # (Manual) Basophils # (Manual) PT INR Fibrinogen dRVVT Confirm Interp Factor V Activity POC ABG pH POC ABG pCO2 17.3 L POC ABG pO2 112 H ABG pO2 ABG HCO3 ABG Base Excess ABG Hemoglobin Oxyhemoglobin Sodium Potassium Chloride Carbon Dioxide BUN Creatinine Glucose POC Glucose 143 H 164 H Lactic Acid Calcium Phosphorus Magnesium Direct Bilirubin AST ALT Alkaline Phosphatase Lactate Dehydrogenase Troponin T C-Reactive Protein Total Protein Albumin Prealbumin Triglycerides Cholesterol LDL Cholesterol Direct HDL Cholesterol PTH Intact Urine pH Urine WBC (Auto) Urine Creatinine Urine Total Protein Fluid Total Protein Vancomycin Trough Rheumatoid Factor Complement C4 Miscellaneous Test Crossmatch 09/24/16 09/24/16 09/24/16 05:21 11:58 17:06 WBC RBC Hgb Hct MCV MCH MCHC RDW Plt Count Lymph % (Auto) [place] % (Auto) Lymph # [place] # Baso # Seg Neutrophils % Seg Neuts % (Manual) Lymphocytes % (Manual) Monocytes % (Manual) Eosinophils % (Manual) Basophils % (Manual) Nucleated RBC % Seg Neutrophils # Seg Neutrophils # Man Lymphocytes # (Manual) Monocytes # (Manual) Eosinophils # (Manual) Basophils # (Manual) PT INR Fibrinogen dRVVT Confirm Interp Factor V Activity POC ABG pH POC ABG pCO2 POC ABG pO2 ABG pO2 ABG HCO3 ABG Base Excess ABG Hemoglobin Oxyhemoglobin Sodium Potassium Chloride Carbon Dioxide 10 L BUN 103 H Creatinine 4.3 H Glucose 163 H POC Glucose 173 H 167 H Lactic Acid Calcium 6.5 L Phosphorus Magnesium Direct Bilirubin AST ALT Alkaline Phosphatase Lactate Dehydrogenase Troponin T C-Reactive Protein Total Protein Albumin Prealbumin Triglycerides Cholesterol LDL Cholesterol Direct HDL Cholesterol PTH Intact Urine pH Urine WBC (Auto) Urine Creatinine Urine Total Protein Fluid Total Protein Vancomycin Trough Rheumatoid Factor Complement C4 Miscellaneous Test Crossmatch 09/24/16 09/24/16 09/24/16 20:15 21:02 23:48 WBC RBC Hgb Hct MCV MCH MCHC RDW Plt Count Lymph % (Auto) [place] % (Auto) Lymph # [place] # Baso # Seg Neutrophils % Seg Neuts % (Manual) Lymphocytes % (Manual) Monocytes % (Manual) Eosinophils % (Manual) Basophils % (Manual) Nucleated RBC % Seg Neutrophils # Seg Neutrophils # Man Lymphocytes # (Manual) Monocytes # (Manual) Eosinophils # (Manual) Basophils # (Manual) PT INR Fibrinogen dRVVT Confirm Interp Factor V Activity POC ABG pH 7.288 L POC ABG pCO2 30.2 L 21.5 L POC ABG pO2 32 L 39 L ABG pO2 ABG HCO3 ABG Base Excess ABG Hemoglobin Oxyhemoglobin Sodium Potassium Chloride Carbon Dioxide BUN Creatinine Glucose POC Glucose 109 H Lactic Acid Calcium Phosphorus Magnesium Direct Bilirubin AST ALT Alkaline Phosphatase Lactate Dehydrogenase Troponin T C-Reactive Protein Total Protein Albumin Prealbumin Triglycerides Cholesterol LDL Cholesterol Direct HDL Cholesterol PTH Intact Urine pH Urine WBC (Auto) Urine Creatinine Urine Total Protein Fluid Total Protein Vancomycin Trough Rheumatoid Factor Complement C4 Miscellaneous Test Crossmatch 09/25/16 09/25/16 09/25/16 04:20 04:20 04:20 WBC RBC 2.58 L Hgb 7.0 L Hct 21.0 L MCV MCH 27 L MCHC RDW 23.8 H Plt Count Lymph % (Auto) [place] % (Auto) Lymph # [place] # Baso # Seg Neutrophils % Seg Neuts % (Manual) Lymphocytes % (Manual) 12.0 L Monocytes % (Manual) Eosinophils % (Manual) 7.0 H Basophils % (Manual) 2.0 H Nucleated RBC % Seg Neutrophils # Seg Neutrophils # Man Lymphocytes # (Manual) 0.9 L Monocytes # (Manual) Eosinophils # (Manual) 0.5 H Basophils # (Manual) PT INR Fibrinogen dRVVT Confirm Interp Factor V Activity POC ABG pH POC ABG pCO2 POC ABG pO2 ABG pO2 ABG HCO3 ABG Base Excess ABG Hemoglobin Oxyhemoglobin Sodium Potassium Chloride Carbon Dioxide 15 L BUN 72 H Creatinine 3.8 H Glucose POC Glucose Lactic Acid Calcium 6.0 L Phosphorus 4.60 H Magnesium 1.60 L Direct Bilirubin AST ALT Alkaline Phosphatase Lactate Dehydrogenase Troponin T C-Reactive Protein Total Protein Albumin Prealbumin Triglycerides Cholesterol LDL Cholesterol Direct HDL Cholesterol PTH Intact Urine pH Urine WBC (Auto) Urine Creatinine Urine Total Protein Fluid Total Protein Vancomycin Trough Rheumatoid Factor Complement C4 Miscellaneous Test Crossmatch 09/25/16 09/25/16 09/25/16 04:57 08:02 10:30 WBC RBC Hgb Hct MCV MCH MCHC RDW Plt Count Lymph % (Auto) [place] % (Auto) Lymph # [place] # Baso # Seg Neutrophils % Seg Neuts % (Manual) Lymphocytes % (Manual) Monocytes % (Manual) Eosinophils % (Manual) Basophils % (Manual) Nucleated RBC % Seg Neutrophils # Seg Neutrophils # Man Lymphocytes # (Manual) Monocytes # (Manual) Eosinophils # (Manual) Basophils # (Manual) PT INR Fibrinogen dRVVT Confirm Interp Factor V Activity POC ABG pH POC ABG pCO2 24.7 L POC ABG pO2 152 H ABG pO2 ABG HCO3 ABG Base Excess ABG Hemoglobin Oxyhemoglobin Sodium Potassium Chloride Carbon Dioxide BUN Creatinine Glucose POC Glucose 113 H Lactic Acid Calcium Phosphorus Magnesium Direct Bilirubin AST ALT Alkaline Phosphatase Lactate Dehydrogenase Troponin T C-Reactive Protein Total Protein Albumin Prealbumin Triglycerides Cholesterol LDL Cholesterol Direct HDL Cholesterol PTH Intact Urine pH Urine WBC (Auto) Urine Creatinine Urine Total Protein Fluid Total Protein Vancomycin Trough Rheumatoid Factor Complement C4 Miscellaneous Test Crossmatch See Detail 09/25/16 09/25/16 09/25/16 12:05 17:44 23:47 WBC RBC Hgb Hct MCV MCH MCHC RDW Plt Count Lymph % (Auto) [place] % (Auto) Lymph # [place] # Baso # Seg Neutrophils % Seg Neuts % (Manual) Lymphocytes % (Manual) Monocytes % (Manual) Eosinophils % (Manual) Basophils % (Manual) Nucleated RBC % Seg Neutrophils # Seg Neutrophils # Man Lymphocytes # (Manual) Monocytes # (Manual) Eosinophils # (Manual) Basophils # (Manual) PT INR Fibrinogen dRVVT Confirm Interp Factor V Activity POC ABG pH POC ABG pCO2 POC ABG pO2 ABG pO2 ABG HCO3 ABG Base Excess ABG Hemoglobin Oxyhemoglobin Sodium Potassium Chloride Carbon Dioxide BUN Creatinine Glucose POC Glucose 117 H 119 H 150 H Lactic Acid Calcium Phosphorus Magnesium Direct Bilirubin AST ALT Alkaline Phosphatase Lactate Dehydrogenase Troponin T C-Reactive Protein Total Protein Albumin Prealbumin Triglycerides Cholesterol LDL Cholesterol Direct HDL Cholesterol PTH Intact Urine pH Urine WBC (Auto) Urine Creatinine Urine Total Protein Fluid Total Protein Vancomycin Trough Rheumatoid Factor Complement C4 Miscellaneous Test Crossmatch 09/26/16 09/26/16 09/26/16 04:25 04:25 04:25 WBC RBC 2.65 L Hgb 7.4 L Hct 21.6 L MCV MCH MCHC RDW 22.5 H Plt Count Lymph % (Auto) [place] % (Auto) Lymph # [place] # Baso # Seg Neutrophils % Seg Neuts % (Manual) Lymphocytes % (Manual) 6.0 L Monocytes % (Manual) Eosinophils % (Manual) 11.0 H Basophils % (Manual) Nucleated RBC % Seg Neutrophils # Seg Neutrophils # Man Lymphocytes # (Manual) 0.4 L Monocytes # (Manual) Eosinophils # (Manual) 0.6 H Basophils # (Manual) PT INR Fibrinogen dRVVT Confirm Interp Factor V Activity POC ABG pH POC ABG pCO2 POC ABG pO2 ABG pO2 ABG HCO3 ABG Base Excess ABG Hemoglobin Oxyhemoglobin Sodium Potassium Chloride 97.0 L Carbon Dioxide 19 L BUN 43 H Creatinine 2.6 H Glucose 130 H POC Glucose Lactic Acid 4.40 H* Calcium 6.7 L Phosphorus Magnesium Direct Bilirubin AST ALT Alkaline Phosphatase Lactate Dehydrogenase Troponin T C-Reactive Protein Total Protein Albumin Prealbumin Triglycerides Cholesterol LDL Cholesterol Direct HDL Cholesterol PTH Intact Urine pH Urine WBC (Auto) Urine Creatinine Urine Total Protein Fluid Total Protein Vancomycin Trough Rheumatoid Factor Complement C4 Miscellaneous Test Crossmatch 09/26/16 09/26/16 09/26/16 05:20 11:44 12:12 WBC RBC Hgb Hct MCV MCH MCHC RDW Plt Count Lymph % (Auto) [place] % (Auto) Lymph # [place] # Baso # Seg Neutrophils % Seg Neuts % (Manual) Lymphocytes % (Manual) Monocytes % (Manual) Eosinophils % (Manual) Basophils % (Manual) Nucleated RBC % Seg Neutrophils # Seg Neutrophils # Man Lymphocytes # (Manual) Monocytes # (Manual) Eosinophils # (Manual) Basophils # (Manual) PT INR Fibrinogen dRVVT Confirm Interp Factor V Activity POC ABG pH POC ABG pCO2 27.0 L POC ABG pO2 69 L ABG pO2 ABG HCO3 ABG Base Excess ABG Hemoglobin Oxyhemoglobin Sodium Potassium Chloride Carbon Dioxide BUN Creatinine Glucose POC Glucose 121 H 128 H Lactic Acid Calcium Phosphorus Magnesium Direct Bilirubin AST ALT Alkaline Phosphatase Lactate Dehydrogenase Troponin T C-Reactive Protein Total Protein Albumin Prealbumin Triglycerides Cholesterol LDL Cholesterol Direct HDL Cholesterol PTH Intact Urine pH Urine WBC (Auto) Urine Creatinine Urine Total Protein Fluid Total Protein Vancomycin Trough Rheumatoid Factor Complement C4 Miscellaneous Test Crossmatch 09/26/16 09/26/16 09/27/16 18:31 23:40 08:20 WBC RBC Hgb Hct MCV MCH MCHC RDW Plt Count Lymph % (Auto) [place] % (Auto) Lymph # [place] # Baso # Seg Neutrophils % Seg Neuts % (Manual) Lymphocytes % (Manual) Monocytes % (Manual) Eosinophils % (Manual) Basophils % (Manual) Nucleated RBC % Seg Neutrophils # Seg Neutrophils # Man Lymphocytes # (Manual) Monocytes # (Manual) Eosinophils # (Manual) Basophils # (Manual) PT INR Fibrinogen dRVVT Confirm Interp Factor V Activity POC ABG pH POC ABG pCO2 POC ABG pO2 ABG pO2 ABG HCO3 ABG Base Excess ABG Hemoglobin Oxyhemoglobin Sodium Potassium Chloride Carbon Dioxide BUN Creatinine Glucose POC Glucose 120 H 133 H Lactic Acid 4.10 H* Calcium Phosphorus Magnesium Direct Bilirubin AST ALT Alkaline Phosphatase Lactate Dehydrogenase Troponin T C-Reactive Protein Total Protein Albumin Prealbumin Triglycerides Cholesterol LDL Cholesterol Direct HDL Cholesterol PTH Intact Urine pH Urine WBC (Auto) Urine Creatinine Urine Total Protein Fluid Total Protein Vancomycin Trough Rheumatoid Factor Complement C4 Miscellaneous Test Crossmatch 09/27/16 09/27/16 09/27/16 11:23 15:00 18:15 WBC RBC Hgb Hct MCV MCH MCHC RDW Plt Count Lymph % (Auto) [place] % (Auto) Lymph # [place] # Baso # Seg Neutrophils % Seg Neuts % (Manual) Lymphocytes % (Manual) Monocytes % (Manual) Eosinophils % (Manual) Basophils % (Manual) Nucleated RBC % Seg Neutrophils # Seg Neutrophils # Man Lymphocytes # (Manual) Monocytes # (Manual) Eosinophils # (Manual) Basophils # (Manual) PT INR Fibrinogen dRVVT Confirm Interp Factor V Activity POC ABG pH 7.459 H POC ABG pCO2 27.1 L POC ABG pO2 140 H ABG pO2 ABG HCO3 ABG Base Excess ABG Hemoglobin Oxyhemoglobin Sodium Potassium Chloride Carbon Dioxide BUN Creatinine Glucose POC Glucose 114 H 127 H Lactic Acid Calcium Phosphorus Magnesium Direct Bilirubin AST ALT Alkaline Phosphatase Lactate Dehydrogenase Troponin T C-Reactive Protein Total Protein Albumin Prealbumin Triglycerides Cholesterol LDL Cholesterol Direct HDL Cholesterol PTH Intact Urine pH Urine WBC (Auto) Urine Creatinine Urine Total Protein Fluid Total Protein Vancomycin Trough Rheumatoid Factor Complement C4 Miscellaneous Test Crossmatch 09/27/16 09/27/16 09/28/16 Unknown Unknown 03:45 WBC RBC 2.49 L Hgb 6.8 L Hct 20.7 L MCV MCH 27 L MCHC RDW 22.1 H Plt Count Lymph % (Auto) [place] % (Auto) Lymph # [place] # Baso # Seg Neutrophils % Seg Neuts % (Manual) 32.0 L Lymphocytes % (Manual) 12.0 L Monocytes % (Manual) 11.0 H Eosinophils % (Manual) 10.0 H Basophils % (Manual) Nucleated RBC % Seg Neutrophils # Seg Neutrophils # Man Lymphocytes # (Manual) 1.0 L Monocytes # (Manual) 0.9 H Eosinophils # (Manual) 0.8 H Basophils # (Manual) PT INR Fibrinogen dRVVT Confirm Interp Factor V Activity POC ABG pH POC ABG pCO2 POC ABG pO2 ABG pO2 ABG HCO3 ABG Base Excess ABG Hemoglobin Oxyhemoglobin Sodium 135 L 135 L Potassium 3.5 L Chloride 93.6 L 94.4 L Carbon Dioxide 17 L 21 L BUN 45 H 28 H Creatinine 3.3 H 2.5 H Glucose 106 H POC Glucose Lactic Acid Calcium 7.3 L 7.1 L Phosphorus Magnesium Direct Bilirubin AST ALT Alkaline Phosphatase Lactate Dehydrogenase Troponin T C-Reactive Protein Total Protein Albumin Prealbumin Triglycerides Cholesterol LDL Cholesterol Direct HDL Cholesterol PTH Intact Urine pH Urine WBC (Auto) Urine Creatinine Urine Total Protein Fluid Total Protein Vancomycin Trough Rheumatoid Factor Complement C4 Miscellaneous Test Crossmatch 09/28/16 09/28/16 09/28/16 03:45 07:25 11:58 WBC 13.3 H RBC 3.01 L Hgb 8.4 L Hct 25.0 L MCV MCH MCHC RDW 20.5 H Plt Count 128 L Lymph % (Auto) [place] % (Auto) Lymph # [place] # Baso # Seg Neutrophils % Seg Neuts % (Manual) Lymphocytes % (Manual) 7.0 L Monocytes % (Manual) Eosinophils % (Manual) 6.0 H Basophils % (Manual) Nucleated RBC % Seg Neutrophils # Seg Neutrophils # Man Lymphocytes # (Manual) 0.9 L Monocytes # (Manual) Eosinophils # (Manual) 0.8 H Basophils # (Manual) PT INR Fibrinogen dRVVT Confirm Interp Factor V Activity POC ABG pH POC ABG pCO2 POC ABG pO2 ABG pO2 ABG HCO3 ABG Base Excess ABG Hemoglobin Oxyhemoglobin Sodium Potassium Chloride Carbon Dioxide BUN Creatinine Glucose POC Glucose 121 H Lactic Acid 4.50 H* Calcium Phosphorus Magnesium Direct Bilirubin AST ALT Alkaline Phosphatase Lactate Dehydrogenase Troponin T C-Reactive Protein Total Protein Albumin Prealbumin Triglycerides Cholesterol LDL Cholesterol Direct HDL Cholesterol PTH Intact Urine pH Urine WBC (Auto) Urine Creatinine Urine Total Protein Fluid Total Protein Vancomycin Trough Rheumatoid Factor Complement C4 Miscellaneous Test Crossmatch 09/29/16 09/29/16 09/29/16 06:45 06:45 06:45 WBC 14.9 H RBC 2.74 L Hgb 7.6 L Hct 23.2 L MCV MCH MCHC RDW 20.5 H Plt Count 81 L Lymph % (Auto) [place] % (Auto) Lymph # [place] # Baso # Seg Neutrophils % Seg Neuts % (Manual) 81.0 H Lymphocytes % (Manual) 4.0 L Monocytes % (Manual) Eosinophils % (Manual) Basophils % (Manual) Nucleated RBC % Seg Neutrophils # Seg Neutrophils # Man 12.1 H Lymphocytes # (Manual) 0.6 L Monocytes # (Manual) Eosinophils # (Manual) Basophils # (Manual) PT INR Fibrinogen dRVVT Confirm Interp Factor V Activity POC ABG pH POC ABG pCO2 POC ABG pO2 ABG pO2 ABG HCO3 ABG Base Excess ABG Hemoglobin Oxyhemoglobin Sodium 133 L Potassium 3.4 L Chloride 92.5 L Carbon Dioxide 21 L BUN 33 H Creatinine 3.0 H Glucose POC Glucose Lactic Acid Calcium 6.6 L Phosphorus Magnesium 1.40 L Direct Bilirubin 0.9 H AST ALT Alkaline Phosphatase Lactate Dehydrogenase Troponin T C-Reactive Protein Total Protein 4.3 L Albumin 1.3 L Prealbumin Triglycerides Cholesterol LDL Cholesterol Direct HDL Cholesterol PTH Intact Urine pH Urine WBC (Auto) Urine Creatinine Urine Total Protein Fluid Total Protein Vancomycin Trough Rheumatoid Factor Complement C4 Miscellaneous Test Crossmatch 09/29/16 09/29/16 09/30/16 17:52 20:12 00:07 WBC RBC Hgb Hct MCV MCH MCHC RDW Plt Count Lymph % (Auto) [place] % (Auto) Lymph # [place] # Baso # Seg Neutrophils % Seg Neuts % (Manual) Lymphocytes % (Manual) Monocytes % (Manual) Eosinophils % (Manual) Basophils % (Manual) Nucleated RBC % Seg Neutrophils # Seg Neutrophils # Man Lymphocytes # (Manual) Monocytes # (Manual) Eosinophils # (Manual) Basophils # (Manual) PT INR Fibrinogen dRVVT Confirm Interp Factor V Activity POC ABG pH POC ABG pCO2 POC ABG pO2 ABG pO2 ABG HCO3 ABG Base Excess ABG Hemoglobin Oxyhemoglobin Sodium Potassium Chloride Carbon Dioxide BUN Creatinine Glucose POC Glucose 50 L 51 L Lactic Acid Calcium Phosphorus Magnesium Direct Bilirubin AST ALT Alkaline Phosphatase Lactate Dehydrogenase Troponin T 0.204 H* C-Reactive Protein Total Protein Albumin Prealbumin Triglycerides Cholesterol 31 L LDL Cholesterol Direct 4 L HDL Cholesterol 3 L PTH Intact Urine pH Urine WBC (Auto) Urine Creatinine Urine Total Protein Fluid Total Protein Vancomycin Trough Rheumatoid Factor Complement C4 Miscellaneous Test Crossmatch 09/30/16 09/30/16 09/30/16 01:30 05:15 06:10 WBC RBC Hgb Hct MCV MCH MCHC RDW Plt Count Lymph % (Auto) [place] % (Auto) Lymph # [place] # Baso # Seg Neutrophils % Seg Neuts % (Manual) Lymphocytes % (Manual) Monocytes % (Manual) Eosinophils % (Manual) Basophils % (Manual) Nucleated RBC % Seg Neutrophils # Seg Neutrophils # Man Lymphocytes # (Manual) Monocytes # (Manual) Eosinophils # (Manual) Basophils # (Manual) PT INR Fibrinogen dRVVT Confirm Interp Factor V Activity POC ABG pH POC ABG pCO2 POC ABG pO2 ABG pO2 ABG HCO3 ABG Base Excess ABG Hemoglobin Oxyhemoglobin Sodium 133 L Potassium 3.2 L Chloride 93.2 L Carbon Dioxide 19 L BUN 36 H Creatinine 3.2 H Glucose 104 H POC Glucose 167 H 146 H Lactic Acid Calcium 6.4 L Phosphorus Magnesium 1.60 L Direct Bilirubin AST ALT Alkaline Phosphatase Lactate Dehydrogenase Troponin T C-Reactive Protein Total Protein Albumin Prealbumin Triglycerides Cholesterol LDL Cholesterol Direct HDL Cholesterol PTH Intact Urine pH Urine WBC (Auto) Urine Creatinine Urine Total Protein Fluid Total Protein Vancomycin Trough Rheumatoid Factor Complement C4 Miscellaneous Test Crossmatch 09/30/16 09/30/16 09/30/16 11:26 13:39 18:38 WBC RBC Hgb Hct MCV MCH MCHC RDW Plt Count Lymph % (Auto) [place] % (Auto) Lymph # [place] # Baso # Seg Neutrophils % Seg Neuts % (Manual) Lymphocytes % (Manual) Monocytes % (Manual) Eosinophils % (Manual) Basophils % (Manual) Nucleated RBC % Seg Neutrophils # Seg Neutrophils # Man Lymphocytes # (Manual) Monocytes # (Manual) Eosinophils # (Manual) Basophils # (Manual) PT INR Fibrinogen dRVVT Confirm Interp Factor V Activity POC ABG pH 7.479 H POC ABG pCO2 29.8 L POC ABG pO2 117 H ABG pO2 ABG HCO3 ABG Base Excess ABG Hemoglobin Oxyhemoglobin Sodium Potassium Chloride Carbon Dioxide BUN Creatinine Glucose POC Glucose 140 H 122 H Lactic Acid Calcium Phosphorus Magnesium Direct Bilirubin AST ALT Alkaline Phosphatase Lactate Dehydrogenase Troponin T C-Reactive Protein Total Protein Albumin Prealbumin Triglycerides Cholesterol LDL Cholesterol Direct HDL Cholesterol PTH Intact Urine pH Urine WBC (Auto) Urine Creatinine Urine Total Protein Fluid Total Protein Vancomycin Trough Rheumatoid Factor Complement C4 Miscellaneous Test Crossmatch 10/01/16 10/01/16 10/01/16 06:00 06:00 12:37 WBC 12.6 H RBC 2.75 L Hgb 7.3 L Hct 23.3 L MCV MCH 27 L MCHC RDW 20.6 H Plt Count 72 L Lymph % (Auto) [place] % (Auto) Lymph # [place] # Baso # Seg Neutrophils % Seg Neuts % (Manual) 31.0 L Lymphocytes % (Manual) 8.0 L Monocytes % (Manual) Eosinophils % (Manual) Basophils % (Manual) Nucleated RBC % 3.0 H Seg Neutrophils # Seg Neutrophils # Man Lymphocytes # (Manual) 1.0 L Monocytes # (Manual) Eosinophils # (Manual) Basophils # (Manual) PT INR Fibrinogen dRVVT Confirm Interp Factor V Activity POC ABG pH POC ABG pCO2 POC ABG pO2 ABG pO2 ABG HCO3 ABG Base Excess ABG Hemoglobin Oxyhemoglobin Sodium 127 L Potassium Chloride 86.8 L Carbon Dioxide 20 L BUN 42 H Creatinine 3.5 H Glucose POC Glucose 65 L Lactic Acid Calcium 7.0 L Phosphorus Magnesium Direct Bilirubin AST ALT Alkaline Phosphatase Lactate Dehydrogenase Troponin T C-Reactive Protein Total Protein Albumin Prealbumin Triglycerides Cholesterol LDL Cholesterol Direct HDL Cholesterol PTH Intact Urine pH Urine WBC (Auto) Urine Creatinine Urine Total Protein Fluid Total Protein Vancomycin Trough Rheumatoid Factor Complement C4 Miscellaneous Test Crossmatch 10/01/16 10/01/16 10/02/16 17:39 23:32 00:59 WBC RBC Hgb Hct MCV MCH MCHC RDW Plt Count Lymph % (Auto) [place] % (Auto) Lymph # [place] # Baso # Seg Neutrophils % Seg Neuts % (Manual) Lymphocytes % (Manual) Monocytes % (Manual) Eosinophils % (Manual) Basophils % (Manual) Nucleated RBC % Seg Neutrophils # Seg Neutrophils # Man Lymphocytes # (Manual) Monocytes # (Manual) Eosinophils # (Manual) Basophils # (Manual) PT INR Fibrinogen dRVVT Confirm Interp Factor V Activity POC ABG pH POC ABG pCO2 POC ABG pO2 ABG pO2 ABG HCO3 ABG Base Excess ABG Hemoglobin Oxyhemoglobin Sodium Potassium Chloride Carbon Dioxide BUN Creatinine Glucose POC Glucose 107 H 52 L 145 H Lactic Acid Calcium Phosphorus Magnesium Direct Bilirubin AST ALT Alkaline Phosphatase Lactate Dehydrogenase Troponin T C-Reactive Protein Total Protein Albumin Prealbumin Triglycerides Cholesterol LDL Cholesterol Direct HDL Cholesterol PTH Intact Urine pH Urine WBC (Auto) Urine Creatinine Urine Total Protein Fluid Total Protein Vancomycin Trough Rheumatoid Factor Complement C4 Miscellaneous Test Crossmatch 10/02/16 10/02/16 10/02/16 10:30 10:50 10:50 WBC 14.7 H RBC 2.76 L Hgb 7.4 L Hct 23.6 L MCV MCH 27 L MCHC RDW 20.2 H Plt Count 79 L Lymph % (Auto) [place] % (Auto) Lymph # [place] # Baso # Seg Neutrophils % Seg Neuts % (Manual) 86.0 H Lymphocytes % (Manual) 6.0 L Monocytes % (Manual) Eosinophils % (Manual) Basophils % (Manual) Nucleated RBC % Seg Neutrophils # Seg Neutrophils # Man 12.6 H Lymphocytes # (Manual) 0.9 L Monocytes # (Manual) Eosinophils # (Manual) Basophils # (Manual) PT INR Fibrinogen dRVVT Confirm Interp Factor V Activity POC ABG pH 7.486 H POC ABG pCO2 30.1 L POC ABG pO2 108 H ABG pO2 ABG HCO3 ABG Base Excess ABG Hemoglobin Oxyhemoglobin Sodium 131 L Potassium 3.4 L Chloride 89.9 L Carbon Dioxide BUN 26 H Creatinine 2.6 H Glucose POC Glucose Lactic Acid Calcium 7.0 L Phosphorus Magnesium Direct Bilirubin AST ALT Alkaline Phosphatase Lactate Dehydrogenase Troponin T C-Reactive Protein Total Protein Albumin Prealbumin Triglycerides Cholesterol LDL Cholesterol Direct HDL Cholesterol PTH Intact Urine pH Urine WBC (Auto) Urine Creatinine Urine Total Protein Fluid Total Protein Vancomycin Trough Rheumatoid Factor Complement C4 Miscellaneous Test Crossmatch 10/02/16 10/03/16 10/03/16 23:45 00:45 05:10 WBC 12.9 H RBC 2.77 L Hgb 7.6 L Hct 23.7 L MCV MCH 27 L MCHC RDW 19.7 H Plt Count 89 L Lymph % (Auto) [place] % (Auto) Lymph # [place] # Baso # Seg Neutrophils % Seg Neuts % (Manual) Lymphocytes % (Manual) 8.0 L Monocytes % (Manual) Eosinophils % (Manual) Basophils % (Manual) Nucleated RBC % Seg Neutrophils # 11.9 H Seg Neutrophils # Man Lymphocytes # (Manual) 1.0 L Monocytes # (Manual) Eosinophils # (Manual) Basophils # (Manual) PT INR Fibrinogen dRVVT Confirm Interp Factor V Activity POC ABG pH POC ABG pCO2 POC ABG pO2 ABG pO2 ABG HCO3 ABG Base Excess ABG Hemoglobin Oxyhemoglobin Sodium Potassium Chloride Carbon Dioxide BUN Creatinine Glucose POC Glucose 55 L 199 H Lactic Acid Calcium Phosphorus Magnesium Direct Bilirubin AST ALT Alkaline Phosphatase Lactate Dehydrogenase Troponin T C-Reactive Protein Total Protein Albumin Prealbumin Triglycerides Cholesterol LDL Cholesterol Direct HDL Cholesterol PTH Intact Urine pH Urine WBC (Auto) Urine Creatinine Urine Total Protein Fluid Total Protein Vancomycin Trough Rheumatoid Factor Complement C4 Miscellaneous Test Crossmatch 10/03/16 10/03/16 10/03/16 05:10 12:14 13:18 WBC RBC Hgb Hct MCV MCH MCHC RDW Plt Count Lymph % (Auto) [place] % (Auto) Lymph # [place] # Baso # Seg Neutrophils % Seg Neuts % (Manual) Lymphocytes % (Manual) Monocytes % (Manual) Eosinophils % (Manual) Basophils % (Manual) Nucleated RBC % Seg Neutrophils # Seg Neutrophils # Man Lymphocytes # (Manual) Monocytes # (Manual) Eosinophils # (Manual) Basophils # (Manual) PT INR Fibrinogen dRVVT Confirm Interp Factor V Activity POC ABG pH POC ABG pCO2 POC ABG pO2 ABG pO2 ABG HCO3 ABG Base Excess ABG Hemoglobin Oxyhemoglobin Sodium 129 L Potassium 3.3 L Chloride 88.8 L Carbon Dioxide 20 L BUN 29 H Creatinine 2.8 H Glucose POC Glucose 68 L 127 H Lactic Acid Calcium 7.2 L Phosphorus Magnesium Direct Bilirubin AST ALT Alkaline Phosphatase Lactate Dehydrogenase Troponin T C-Reactive Protein Total Protein Albumin Prealbumin Triglycerides Cholesterol LDL Cholesterol Direct HDL Cholesterol PTH Intact Urine pH Urine WBC (Auto) Urine Creatinine Urine Total Protein Fluid Total Protein Vancomycin Trough Rheumatoid Factor Complement C4 Miscellaneous Test Crossmatch 10/03/16 10/03/16 10/03/16 14:42 18:21 19:09 WBC RBC Hgb Hct MCV MCH MCHC RDW Plt Count Lymph % (Auto) [place] % (Auto) Lymph # [place] # Baso # Seg Neutrophils % Seg Neuts % (Manual) Lymphocytes % (Manual) Monocytes % (Manual) Eosinophils % (Manual) Basophils % (Manual) Nucleated RBC % Seg Neutrophils # Seg Neutrophils # Man Lymphocytes # (Manual) Monocytes # (Manual) Eosinophils # (Manual) Basophils # (Manual) PT INR Fibrinogen dRVVT Confirm Interp Factor V Activity POC ABG pH 7.499 H POC ABG pCO2 28.4 L POC ABG pO2 44 L ABG pO2 ABG HCO3 ABG Base Excess ABG Hemoglobin Oxyhemoglobin Sodium Potassium Chloride Carbon Dioxide BUN Creatinine Glucose POC Glucose 64 L 205 H Lactic Acid Calcium Phosphorus Magnesium Direct Bilirubin AST ALT Alkaline Phosphatase Lactate Dehydrogenase Troponin T C-Reactive Protein Total Protein Albumin Prealbumin Triglycerides Cholesterol LDL Cholesterol Direct HDL Cholesterol PTH Intact Urine pH Urine WBC (Auto) Urine Creatinine Urine Total Protein Fluid Total Protein Vancomycin Trough Rheumatoid Factor Complement C4 Miscellaneous Test Crossmatch 10/03/16 10/04/16 10/04/16 23:33 04:18 06:30 WBC RBC 2.54 L Hgb 7.1 L Hct 21.7 L MCV MCH MCHC RDW 19.5 H Plt Count 76 L Lymph % (Auto) [place] % (Auto) Lymph # [place] # Baso # Seg Neutrophils % Seg Neuts % (Manual) 88.0 H Lymphocytes % (Manual) 6.0 L Monocytes % (Manual) Eosinophils % (Manual) Basophils % (Manual) Nucleated RBC % Seg Neutrophils # Seg Neutrophils # Man 8.8 H Lymphocytes # (Manual) 0.6 L Monocytes # (Manual) Eosinophils # (Manual) Basophils # (Manual) PT INR Fibrinogen dRVVT Confirm Interp Factor V Activity POC ABG pH 7.461 H POC ABG pCO2 33.6 L POC ABG pO2 211 H ABG pO2 ABG HCO3 ABG Base Excess ABG Hemoglobin Oxyhemoglobin Sodium Potassium Chloride Carbon Dioxide BUN Creatinine Glucose POC Glucose 136 H Lactic Acid Calcium Phosphorus Magnesium Direct Bilirubin AST ALT Alkaline Phosphatase Lactate Dehydrogenase Troponin T C-Reactive Protein Total Protein Albumin Prealbumin Triglycerides Cholesterol LDL Cholesterol Direct HDL Cholesterol PTH Intact Urine pH Urine WBC (Auto) Urine Creatinine Urine Total Protein Fluid Total Protein Vancomycin Trough Rheumatoid Factor Complement C4 Miscellaneous Test Crossmatch 10/04/16 10/04/16 10/04/16 06:30 11:45 17:54 WBC RBC Hgb Hct MCV MCH MCHC RDW Plt Count Lymph % (Auto) [place] % (Auto) Lymph # [place] # Baso # Seg Neutrophils % Seg Neuts % (Manual) Lymphocytes % (Manual) Monocytes % (Manual) Eosinophils % (Manual) Basophils % (Manual) Nucleated RBC % Seg Neutrophils # Seg Neutrophils # Man Lymphocytes # (Manual) Monocytes # (Manual) Eosinophils # (Manual) Basophils # (Manual) PT INR Fibrinogen dRVVT Confirm Interp Factor V Activity POC ABG pH POC ABG pCO2 POC ABG pO2 ABG pO2 ABG HCO3 ABG Base Excess ABG Hemoglobin Oxyhemoglobin Sodium 128 L Potassium Chloride 87.4 L Carbon Dioxide 20 L BUN 34 H Creatinine 2.9 H Glucose 127 H POC Glucose 158 H 160 H Lactic Acid Calcium 7.4 L Phosphorus Magnesium Direct Bilirubin AST ALT Alkaline Phosphatase Lactate Dehydrogenase Troponin T C-Reactive Protein Total Protein Albumin Prealbumin Triglycerides Cholesterol LDL Cholesterol Direct HDL Cholesterol PTH Intact Urine pH Urine WBC (Auto) Urine Creatinine Urine Total Protein Fluid Total Protein Vancomycin Trough Rheumatoid Factor Complement C4 Miscellaneous Test Crossmatch 10/04/16 10/05/16 10/05/16 23:25 04:30 05:00 WBC RBC 2.64 L Hgb 7.5 L Hct 22.6 L MCV MCH MCHC RDW 19.3 H Plt Count 80 L Lymph % (Auto) [place] % (Auto) Lymph # [place] # Baso # Seg Neutrophils % Seg Neuts % (Manual) Lymphocytes % (Manual) 12.0 L Monocytes % (Manual) Eosinophils % (Manual) Basophils % (Manual) Nucleated RBC % Seg Neutrophils # Seg Neutrophils # Man Lymphocytes # (Manual) Monocytes # (Manual) Eosinophils # (Manual) Basophils # (Manual) PT INR Fibrinogen dRVVT Confirm Interp Factor V Activity POC ABG pH 7.475 H POC ABG pCO2 33.3 L POC ABG pO2 140 H ABG pO2 ABG HCO3 ABG Base Excess ABG Hemoglobin Oxyhemoglobin Sodium Potassium Chloride Carbon Dioxide BUN Creatinine Glucose POC Glucose 141 H Lactic Acid Calcium Phosphorus Magnesium Direct Bilirubin AST ALT Alkaline Phosphatase Lactate Dehydrogenase Troponin T C-Reactive Protein Total Protein Albumin Prealbumin Triglycerides Cholesterol LDL Cholesterol Direct HDL Cholesterol PTH Intact Urine pH Urine WBC (Auto) Urine Creatinine Urine Total Protein Fluid Total Protein Vancomycin Trough Rheumatoid Factor Complement C4 Miscellaneous Test Crossmatch 10/05/16 10/05/16 10/05/16 05:00 05:09 12:58 WBC RBC Hgb Hct MCV MCH MCHC RDW Plt Count Lymph % (Auto) [place] % (Auto) Lymph # [place] # Baso # Seg Neutrophils % Seg Neuts % (Manual) Lymphocytes % (Manual) Monocytes % (Manual) Eosinophils % (Manual) Basophils % (Manual) Nucleated RBC % Seg Neutrophils # Seg Neutrophils # Man Lymphocytes # (Manual) Monocytes # (Manual) Eosinophils # (Manual) Basophils # (Manual) PT INR Fibrinogen dRVVT Confirm Interp Factor V Activity POC ABG pH POC ABG pCO2 POC ABG pO2 ABG pO2 ABG HCO3 ABG Base Excess ABG Hemoglobin Oxyhemoglobin Sodium 131 L Potassium Chloride 94.0 L Carbon Dioxide 20 L BUN 22 H Creatinine 2.0 H Glucose 123 H POC Glucose 166 H 179 H Lactic Acid Calcium 7.7 L Phosphorus 2.20 L D Magnesium Direct Bilirubin AST ALT Alkaline Phosphatase Lactate Dehydrogenase Troponin T C-Reactive Protein Total Protein Albumin Prealbumin Triglycerides Cholesterol LDL Cholesterol Direct HDL Cholesterol PTH Intact Urine pH Urine WBC (Auto) Urine Creatinine Urine Total Protein Fluid Total Protein Vancomycin Trough Rheumatoid Factor Complement C4 Miscellaneous Test Crossmatch 10/05/16 10/05/16 10/05/16 15:50 18:53 23:12 WBC RBC Hgb Hct MCV MCH MCHC RDW Plt Count Lymph % (Auto) [place] % (Auto) Lymph # [place] # Baso # Seg Neutrophils % Seg Neuts % (Manual) Lymphocytes % (Manual) Monocytes % (Manual) Eosinophils % (Manual) Basophils % (Manual) Nucleated RBC % Seg Neutrophils # Seg Neutrophils # Man Lymphocytes # (Manual) Monocytes # (Manual) Eosinophils # (Manual) Basophils # (Manual) PT INR Fibrinogen dRVVT Confirm Interp Factor V Activity POC ABG pH POC ABG pCO2 POC ABG pO2 ABG pO2 ABG HCO3 ABG Base Excess ABG Hemoglobin Oxyhemoglobin Sodium Potassium Chloride Carbon Dioxide BUN Creatinine Glucose POC Glucose 150 H 164 H Lactic Acid Calcium Phosphorus Magnesium Direct Bilirubin AST ALT Alkaline Phosphatase Lactate Dehydrogenase Troponin T C-Reactive Protein Total Protein Albumin Prealbumin Triglycerides Cholesterol LDL Cholesterol Direct HDL Cholesterol PTH Intact Urine pH Urine WBC (Auto) Urine Creatinine Urine Total Protein Fluid Total Protein Vancomycin Trough Rheumatoid Factor Complement C4 Miscellaneous Test Crossmatch See Detail 10/06/16 10/06/16 10/06/16 03:50 03:50 04:53 WBC RBC 3.00 L Hgb 8.6 L Hct 25.8 L MCV MCH MCHC RDW 17.9 H Plt Count 65 L Lymph % (Auto) [place] % (Auto) Lymph # [place] # Baso # Seg Neutrophils % Seg Neuts % (Manual) 30.0 L Lymphocytes % (Manual) 5.0 L Monocytes % (Manual) Eosinophils % (Manual) Basophils % (Manual) Nucleated RBC % Seg Neutrophils # Seg Neutrophils # Man Lymphocytes # (Manual) 0.4 L Monocytes # (Manual) Eosinophils # (Manual) Basophils # (Manual) PT INR Fibrinogen dRVVT Confirm Interp Factor V Activity POC ABG pH 7.310 L POC ABG pCO2 49.0 H POC ABG pO2 ABG pO2 ABG HCO3 ABG Base Excess ABG Hemoglobin Oxyhemoglobin Sodium 133 L Potassium Chloride 95.9 L Carbon Dioxide BUN 26 H Creatinine 2.0 H Glucose 116 H POC Glucose Lactic Acid Calcium 7.8 L Phosphorus Magnesium Direct Bilirubin AST ALT Alkaline Phosphatase Lactate Dehydrogenase Troponin T C-Reactive Protein Total Protein Albumin Prealbumin Triglycerides Cholesterol LDL Cholesterol Direct HDL Cholesterol PTH Intact Urine pH Urine WBC (Auto) Urine Creatinine Urine Total Protein Fluid Total Protein Vancomycin Trough Rheumatoid Factor Complement C4 Miscellaneous Test Crossmatch 10/06/16 10/06/16 10/06/16 05:23 11:52 18:34 WBC RBC Hgb Hct MCV MCH MCHC RDW Plt Count Lymph % (Auto) [place] % (Auto) Lymph # [place] # Baso # Seg Neutrophils % Seg Neuts % (Manual) Lymphocytes % (Manual) Monocytes % (Manual) Eosinophils % (Manual) Basophils % (Manual) Nucleated RBC % Seg Neutrophils # Seg Neutrophils # Man Lymphocytes # (Manual) Monocytes # (Manual) Eosinophils # (Manual) Basophils # (Manual) PT INR Fibrinogen dRVVT Confirm Interp Factor V Activity POC ABG pH POC ABG pCO2 POC ABG pO2 ABG pO2 ABG HCO3 ABG Base Excess ABG Hemoglobin Oxyhemoglobin Sodium Potassium Chloride Carbon Dioxide BUN Creatinine Glucose POC Glucose 126 H 116 H 129 H Lactic Acid Calcium Phosphorus Magnesium Direct Bilirubin AST ALT Alkaline Phosphatase Lactate Dehydrogenase Troponin T C-Reactive Protein Total Protein Albumin Prealbumin Triglycerides Cholesterol LDL Cholesterol Direct HDL Cholesterol PTH Intact Urine pH Urine WBC (Auto) Urine Creatinine Urine Total Protein Fluid Total Protein Vancomycin Trough Rheumatoid Factor Complement C4 Miscellaneous Test Crossmatch 10/07/16 10/07/16 10/07/16 03:45 05:00 10:00 WBC 17.0 H RBC 2.68 L Hgb 7.3 L Hct 25.3 L MCV MCH 27 L MCHC 29 L RDW 19.6 H Plt Count 74 L Lymph % (Auto) [place] % (Auto) Lymph # [place] # Baso # Seg Neutrophils % Seg Neuts % (Manual) Lymphocytes % (Manual) 12.0 L Monocytes % (Manual) Eosinophils % (Manual) Basophils % (Manual) Nucleated RBC % 4.0 H Seg Neutrophils # Seg Neutrophils # Man 10.7 H Lymphocytes # (Manual) Monocytes # (Manual) Eosinophils # (Manual) Basophils # (Manual) PT INR Fibrinogen dRVVT Confirm Interp Factor V Activity POC ABG pH POC ABG pCO2 POC ABG pO2 ABG pO2 ABG HCO3 ABG Base Excess ABG Hemoglobin Oxyhemoglobin Sodium 130 L Potassium 3.2 L Chloride 93.9 L Carbon Dioxide 20 L BUN 44 H Creatinine 2.7 H Glucose 129 H POC Glucose Lactic Acid Calcium 7.4 L Phosphorus Magnesium Direct Bilirubin AST ALT 6 L Alkaline Phosphatase 195 H Lactate Dehydrogenase Troponin T C-Reactive Protein Total Protein 4.9 L Albumin 1.0 L Prealbumin Triglycerides Cholesterol LDL Cholesterol Direct HDL Cholesterol PTH Intact Urine pH Urine WBC (Auto) Urine Creatinine Urine Total Protein Fluid Total Protein Vancomycin Trough Rheumatoid Factor Complement C4 Miscellaneous Test Flexitest 1 H Crossmatch 10/07/16 10/07/16 10/07/16 10:00 11:24 18:10 WBC RBC Hgb Hct MCV MCH MCHC RDW Plt Count Lymph % (Auto) [place] % (Auto) Lymph # [place] # Baso # Seg Neutrophils % Seg Neuts % (Manual) Lymphocytes % (Manual) Monocytes % (Manual) Eosinophils % (Manual) Basophils % (Manual) Nucleated RBC % Seg Neutrophils # Seg Neutrophils # Man Lymphocytes # (Manual) Monocytes # (Manual) Eosinophils # (Manual) Basophils # (Manual) PT INR Fibrinogen dRVVT Confirm Interp Factor V Activity POC ABG pH POC ABG pCO2 POC ABG pO2 ABG pO2 ABG HCO3 ABG Base Excess ABG Hemoglobin Oxyhemoglobin Sodium Potassium Chloride Carbon Dioxide BUN Creatinine Glucose POC Glucose 116 H 130 H Lactic Acid Calcium Phosphorus Magnesium Direct Bilirubin AST ALT Alkaline Phosphatase Lactate Dehydrogenase Troponin T C-Reactive Protein 19.40 H Total Protein Albumin Prealbumin Triglycerides Cholesterol LDL Cholesterol Direct HDL Cholesterol PTH Intact Urine pH Urine WBC (Auto) Urine Creatinine Urine Total Protein Fluid Total Protein Vancomycin Trough Rheumatoid Factor Complement C4 Miscellaneous Test Crossmatch 10/07/16 10/08/16 10/08/16 18:30 00:00 04:00 WBC RBC Hgb Hct MCV MCH MCHC RDW Plt Count Lymph % (Auto) [place] % (Auto) Lymph # [place] # Baso # Seg Neutrophils % Seg Neuts % (Manual) Lymphocytes % (Manual) Monocytes % (Manual) Eosinophils % (Manual) Basophils % (Manual) Nucleated RBC % Seg Neutrophils # Seg Neutrophils # Man Lymphocytes # (Manual) Monocytes # (Manual) Eosinophils # (Manual) Basophils # (Manual) PT INR Fibrinogen dRVVT Confirm Interp Factor V Activity POC ABG pH POC ABG pCO2 POC ABG pO2 ABG pO2 ABG HCO3 ABG Base Excess ABG Hemoglobin Oxyhemoglobin Sodium 132 L Potassium 3.3 L Chloride 93.6 L Carbon Dioxide 17 L BUN 59 H Creatinine 2.7 H Glucose 121 H POC Glucose 122 H Lactic Acid Calcium 7.6 L Phosphorus Magnesium Direct Bilirubin AST ALT Alkaline Phosphatase Lactate Dehydrogenase Troponin T C-Reactive Protein Total Protein Albumin Prealbumin Triglycerides Cholesterol LDL Cholesterol Direct HDL Cholesterol PTH Intact Urine pH Urine WBC (Auto) > 182.0 H Urine Creatinine Urine Total Protein Fluid Total Protein Vancomycin Trough Rheumatoid Factor Complement C4 Miscellaneous Test Crossmatch 10/08/16 10/08/16 10/08/16 04:30 05:30 11:51 WBC RBC 5.15 H Hgb 14.4 H D Hct 44.5 H D MCV MCH MCHC RDW 19.5 H Plt Count 56 L Lymph % (Auto) [place] % (Auto) Lymph # [place] # Baso # Seg Neutrophils % Seg Neuts % (Manual) 24.0 L Lymphocytes % (Manual) 8.0 L Monocytes % (Manual) Eosinophils % (Manual) Basophils % (Manual) Nucleated RBC % 9.0 H Seg Neutrophils # Seg Neutrophils # Man Lymphocytes # (Manual) 0.7 L Monocytes # (Manual) Eosinophils # (Manual) Basophils # (Manual) PT INR Fibrinogen dRVVT Confirm Interp Factor V Activity POC ABG pH POC ABG pCO2 POC ABG pO2 ABG pO2 ABG HCO3 ABG Base Excess ABG Hemoglobin Oxyhemoglobin Sodium Potassium Chloride Carbon Dioxide BUN Creatinine Glucose POC Glucose 125 H 150 H Lactic Acid Calcium Phosphorus Magnesium Direct Bilirubin AST ALT Alkaline Phosphatase Lactate Dehydrogenase Troponin T C-Reactive Protein Total Protein Albumin Prealbumin Triglycerides Cholesterol LDL Cholesterol Direct HDL Cholesterol PTH Intact Urine pH Urine WBC (Auto) Urine Creatinine Urine Total Protein Fluid Total Protein Vancomycin Trough Rheumatoid Factor Complement C4 Miscellaneous Test Crossmatch 10/08/16 10/08/16 10/08/16 12:49 17:07 19:30 WBC RBC Hgb 7.1 L D Hct 22.4 L D MCV MCH MCHC RDW Plt Count Lymph % (Auto) [place] % (Auto) Lymph # [place] # Baso # Seg Neutrophils % Seg Neuts % (Manual) Lymphocytes % (Manual) Monocytes % (Manual) Eosinophils % (Manual) Basophils % (Manual) Nucleated RBC % Seg Neutrophils # Seg Neutrophils # Man Lymphocytes # (Manual) Monocytes # (Manual) Eosinophils # (Manual) Basophils # (Manual) PT INR Fibrinogen dRVVT Confirm Interp Factor V Activity POC ABG pH POC ABG pCO2 28.2 L POC ABG pO2 111 H ABG pO2 ABG HCO3 ABG Base Excess ABG Hemoglobin Oxyhemoglobin Sodium Potassium Chloride Carbon Dioxide BUN Creatinine Glucose POC Glucose 145 H Lactic Acid Calcium Phosphorus Magnesium Direct Bilirubin AST ALT Alkaline Phosphatase Lactate Dehydrogenase Troponin T C-Reactive Protein Total Protein Albumin Prealbumin Triglycerides Cholesterol LDL Cholesterol Direct HDL Cholesterol PTH Intact Urine pH Urine WBC (Auto) Urine Creatinine Urine Total Protein Fluid Total Protein Vancomycin Trough Rheumatoid Factor Complement C4 Miscellaneous Test Crossmatch 10/08/16 10/09/16 10/09/16 19:30 03:45 03:45 WBC 12.6 H RBC 2.36 L Hgb 6.7 L Hct 21.1 L MCV MCH MCHC RDW 19.5 H Plt Count 75 L Lymph % (Auto) [place] % (Auto) Lymph # [place] # Baso # Seg Neutrophils % Seg Neuts % (Manual) Lymphocytes % (Manual) Monocytes % (Manual) 10.0 H Eosinophils % (Manual) Basophils % (Manual) Nucleated RBC % 3.0 H Seg Neutrophils # Seg Neutrophils # Man Lymphocytes # (Manual) Monocytes # (Manual) 1.3 H Eosinophils # (Manual) Basophils # (Manual) PT 18.0 H INR 1.41 H Fibrinogen dRVVT Confirm Interp Factor V Activity POC ABG pH POC ABG pCO2 POC ABG pO2 ABG pO2 ABG HCO3 ABG Base Excess ABG Hemoglobin Oxyhemoglobin Sodium 135 L Potassium Chloride Carbon Dioxide 17 L BUN 81 H Creatinine 3.2 H Glucose 109 H POC Glucose Lactic Acid Calcium 7.4 L Phosphorus 4.60 H D Magnesium Direct Bilirubin AST ALT Alkaline Phosphatase Lactate Dehydrogenase Troponin T C-Reactive Protein Total Protein Albumin Prealbumin Triglycerides Cholesterol LDL Cholesterol Direct HDL Cholesterol PTH Intact Urine pH Urine WBC (Auto) Urine Creatinine Urine Total Protein Fluid Total Protein Vancomycin Trough Rheumatoid Factor Complement C4 Miscellaneous Test Crossmatch 10/09/16 10/09/16 10/09/16 03:45 05:14 07:20 WBC RBC Hgb Hct MCV MCH MCHC RDW Plt Count Lymph % (Auto) [place] % (Auto) Lymph # [place] # Baso # Seg Neutrophils % Seg Neuts % (Manual) Lymphocytes % (Manual) Monocytes % (Manual) Eosinophils % (Manual) Basophils % (Manual) Nucleated RBC % Seg Neutrophils # Seg Neutrophils # Man Lymphocytes # (Manual) Monocytes # (Manual) Eosinophils # (Manual) Basophils # (Manual) PT 19.0 H INR 1.51 H Fibrinogen dRVVT Confirm Interp Factor V Activity POC ABG pH POC ABG pCO2 POC ABG pO2 ABG pO2 ABG HCO3 ABG Base Excess ABG Hemoglobin Oxyhemoglobin Sodium Potassium Chloride Carbon Dioxide BUN Creatinine Glucose POC Glucose 151 H Lactic Acid Calcium Phosphorus Magnesium Direct Bilirubin AST ALT Alkaline Phosphatase Lactate Dehydrogenase Troponin T C-Reactive Protein Total Protein Albumin Prealbumin Triglycerides Cholesterol LDL Cholesterol Direct HDL Cholesterol PTH Intact Urine pH Urine WBC (Auto) Urine Creatinine Urine Total Protein Fluid Total Protein Vancomycin Trough Rheumatoid Factor Complement C4 Miscellaneous Test Crossmatch See Detail 10/09/16 10/09/16 10/09/16 11:46 16:20 16:43 WBC RBC Hgb 7.2 L Hct 22.2 L MCV MCH MCHC RDW Plt Count Lymph % (Auto) [place] % (Auto) Lymph # [place] # Baso # Seg Neutrophils % Seg Neuts % (Manual) Lymphocytes % (Manual) Monocytes % (Manual) Eosinophils % (Manual) Basophils % (Manual) Nucleated RBC % Seg Neutrophils # Seg Neutrophils # Man Lymphocytes # (Manual) Monocytes # (Manual) Eosinophils # (Manual) Basophils # (Manual) PT INR Fibrinogen dRVVT Confirm Interp Factor V Activity POC ABG pH POC ABG pCO2 POC ABG pO2 ABG pO2 ABG HCO3 ABG Base Excess ABG Hemoglobin Oxyhemoglobin Sodium Potassium Chloride Carbon Dioxide BUN Creatinine Glucose POC Glucose 133 H 141 H Lactic Acid Calcium Phosphorus Magnesium Direct Bilirubin AST ALT Alkaline Phosphatase Lactate Dehydrogenase Troponin T C-Reactive Protein Total Protein Albumin Prealbumin Triglycerides Cholesterol LDL Cholesterol Direct HDL Cholesterol PTH Intact Urine pH Urine WBC (Auto) Urine Creatinine Urine Total Protein Fluid Total Protein Vancomycin Trough Rheumatoid Factor Complement C4 Miscellaneous Test Crossmatch 10/10/16 10/10/16 10/10/16 05:00 05:00 11:19 WBC 18.5 H RBC 2.19 L Hgb 6.4 L Hct 19.6 L* MCV MCH MCHC RDW 19.3 H Plt Count 93 L Lymph % (Auto) [place] % (Auto) Lymph # [place] # Baso # Seg Neutrophils % Seg Neuts % (Manual) Lymphocytes % (Manual) 10.0 L Monocytes % (Manual) Eosinophils % (Manual) Basophils % (Manual) Nucleated RBC % 4.0 H Seg Neutrophils # Seg Neutrophils # Man 11.3 H Lymphocytes # (Manual) Monocytes # (Manual) Eosinophils # (Manual) Basophils # (Manual) PT INR Fibrinogen dRVVT Confirm Interp Factor V Activity POC ABG pH POC ABG pCO2 POC ABG pO2 ABG pO2 ABG HCO3 ABG Base Excess ABG Hemoglobin Oxyhemoglobin Sodium Potassium 5.7 H D Chloride Carbon Dioxide 16 L BUN 94 H Creatinine 3.1 H Glucose 131 H POC Glucose 153 H Lactic Acid Calcium 8.2 L Phosphorus 5.10 H Magnesium 2.40 H Direct Bilirubin 0.3 H AST ALT < 5 L Alkaline Phosphatase 319 H Lactate Dehydrogenase Troponin T C-Reactive Protein Total Protein 5.1 L Albumin 1.0 L Prealbumin Triglycerides Cholesterol LDL Cholesterol Direct HDL Cholesterol PTH Intact Urine pH Urine WBC (Auto) Urine Creatinine Urine Total Protein Fluid Total Protein Vancomycin Trough Rheumatoid Factor Complement C4 Miscellaneous Test Crossmatch 10/10/16 10/10/16 10/11/16 17:50 23:30 04:15 WBC RBC Hgb Hct MCV MCH MCHC RDW Plt Count Lymph % (Auto) [place] % (Auto) Lymph # [place] # Baso # Seg Neutrophils % Seg Neuts % (Manual) Lymphocytes % (Manual) Monocytes % (Manual) Eosinophils % (Manual) Basophils % (Manual) Nucleated RBC % Seg Neutrophils # Seg Neutrophils # Man Lymphocytes # (Manual) Monocytes # (Manual) Eosinophils # (Manual) Basophils # (Manual) PT INR Fibrinogen dRVVT Confirm Interp Factor V Activity POC ABG pH POC ABG pCO2 POC ABG pO2 ABG pO2 ABG HCO3 ABG Base Excess ABG Hemoglobin Oxyhemoglobin Sodium Potassium Chloride 96.4 L Carbon Dioxide 21 L BUN 57 H Creatinine 2.1 H Glucose 151 H POC Glucose 146 H 141 H Lactic Acid Calcium 8.3 L Phosphorus Magnesium Direct Bilirubin AST ALT Alkaline Phosphatase Lactate Dehydrogenase Troponin T C-Reactive Protein Total Protein Albumin Prealbumin Triglycerides Cholesterol LDL Cholesterol Direct HDL Cholesterol PTH Intact Urine pH Urine WBC (Auto) Urine Creatinine Urine Total Protein Fluid Total Protein Vancomycin Trough Rheumatoid Factor Complement C4 Miscellaneous Test Crossmatch 10/11/16 10/11/16 10/11/16 04:15 04:15 05:30 WBC 28.3 H RBC 3.12 L Hgb 9.3 L Hct 28.7 L D MCV MCH MCHC RDW 17.7 H Plt Count 128 L Lymph % (Auto) [place] % (Auto) Lymph # [place] # Baso # Seg Neutrophils % Seg Neuts % (Manual) Lymphocytes % (Manual) Monocytes % (Manual) Eosinophils % (Manual) Basophils % (Manual) Nucleated RBC % Seg Neutrophils # Seg Neutrophils # Man Lymphocytes # (Manual) Monocytes # (Manual) Eosinophils # (Manual) Basophils # (Manual) PT INR Fibrinogen dRVVT Confirm Interp Factor V Activity POC ABG pH POC ABG pCO2 POC ABG pO2 ABG pO2 ABG HCO3 ABG Base Excess ABG Hemoglobin Oxyhemoglobin Sodium Potassium Chloride Carbon Dioxide BUN Creatinine Glucose POC Glucose 167 H Lactic Acid Calcium Phosphorus Magnesium Direct Bilirubin AST ALT Alkaline Phosphatase Lactate Dehydrogenase Troponin T C-Reactive Protein 15.80 H Total Protein Albumin Prealbumin Triglycerides Cholesterol LDL Cholesterol Direct HDL Cholesterol PTH Intact Urine pH Urine WBC (Auto) Urine Creatinine Urine Total Protein Fluid Total Protein Vancomycin Trough Rheumatoid Factor Complement C4 Miscellaneous Test Crossmatch 10/11/16 10/11/16 10/11/16 11:40 15:49 23:57 WBC RBC Hgb Hct MCV MCH MCHC RDW Plt Count Lymph % (Auto) [place] % (Auto) Lymph # [place] # Baso # Seg Neutrophils % Seg Neuts % (Manual) Lymphocytes % (Manual) Monocytes % (Manual) Eosinophils % (Manual) Basophils % (Manual) Nucleated RBC % Seg Neutrophils # Seg Neutrophils # Man Lymphocytes # (Manual) Monocytes # (Manual) Eosinophils # (Manual) Basophils # (Manual) PT INR Fibrinogen dRVVT Confirm Interp Factor V Activity POC ABG pH POC ABG pCO2 POC ABG pO2 ABG pO2 ABG HCO3 ABG Base Excess ABG Hemoglobin Oxyhemoglobin Sodium Potassium Chloride Carbon Dioxide BUN Creatinine Glucose POC Glucose 139 H 168 H 161 H Lactic Acid Calcium Phosphorus Magnesium Direct Bilirubin AST ALT Alkaline Phosphatase Lactate Dehydrogenase Troponin T C-Reactive Protein Total Protein Albumin Prealbumin Triglycerides Cholesterol LDL Cholesterol Direct HDL Cholesterol PTH Intact Urine pH Urine WBC (Auto) Urine Creatinine Urine Total Protein Fluid Total Protein Vancomycin Trough Rheumatoid Factor Complement C4 Miscellaneous Test Crossmatch 10/12/16 10/12/16 10/12/16 04:40 04:40 05:44 WBC 22.5 H RBC 2.88 L Hgb 8.8 L Hct 26.8 L MCV MCH MCHC RDW 17.8 H Plt Count Lymph % (Auto) [place] % (Auto) Lymph # [place] # Baso # Seg Neutrophils % Seg Neuts % (Manual) Lymphocytes % (Manual) Monocytes % (Manual) Eosinophils % (Manual) Basophils % (Manual) Nucleated RBC % Seg Neutrophils # Seg Neutrophils # Man Lymphocytes # (Manual) Monocytes # (Manual) Eosinophils # (Manual) Basophils # (Manual) PT INR Fibrinogen dRVVT Confirm Interp Factor V Activity POC ABG pH POC ABG pCO2 POC ABG pO2 ABG pO2 ABG HCO3 ABG Base Excess ABG Hemoglobin Oxyhemoglobin Sodium 134 L Potassium Chloride 93.0 L Carbon Dioxide BUN 74 H Creatinine 2.5 H Glucose 137 H POC Glucose 158 H Lactic Acid Calcium 8.2 L Phosphorus Magnesium Direct Bilirubin AST ALT Alkaline Phosphatase Lactate Dehydrogenase Troponin T C-Reactive Protein Total Protein Albumin Prealbumin Triglycerides Cholesterol LDL Cholesterol Direct HDL Cholesterol PTH Intact Urine pH Urine WBC (Auto) Urine Creatinine Urine Total Protein Fluid Total Protein Vancomycin Trough Rheumatoid Factor Complement C4 Miscellaneous Test Crossmatch 10/12/16 10/12/16 10/12/16 12:27 18:18 23:46 WBC RBC Hgb Hct MCV MCH MCHC RDW Plt Count Lymph % (Auto) [place] % (Auto) Lymph # [place] # Baso # Seg Neutrophils % Seg Neuts % (Manual) Lymphocytes % (Manual) Monocytes % (Manual) Eosinophils % (Manual) Basophils % (Manual) Nucleated RBC % Seg Neutrophils # Seg Neutrophils # Man Lymphocytes # (Manual) Monocytes # (Manual) Eosinophils # (Manual) Basophils # (Manual) PT INR Fibrinogen dRVVT Confirm Interp Factor V Activity POC ABG pH POC ABG pCO2 POC ABG pO2 ABG pO2 ABG HCO3 ABG Base Excess ABG Hemoglobin Oxyhemoglobin Sodium Potassium Chloride Carbon Dioxide BUN Creatinine Glucose POC Glucose 153 H 140 H 150 H Lactic Acid Calcium Phosphorus Magnesium Direct Bilirubin AST ALT Alkaline Phosphatase Lactate Dehydrogenase Troponin T C-Reactive Protein Total Protein Albumin Prealbumin Triglycerides Cholesterol LDL Cholesterol Direct HDL Cholesterol PTH Intact Urine pH Urine WBC (Auto) Urine Creatinine Urine Total Protein Fluid Total Protein Vancomycin Trough Rheumatoid Factor Complement C4 Miscellaneous Test Crossmatch 10/13/16 10/13/16 10/13/16 06:22 09:20 12:29 WBC RBC Hgb Hct MCV MCH MCHC RDW Plt Count Lymph % (Auto) [place] % (Auto) Lymph # [place] # Baso # Seg Neutrophils % Seg Neuts % (Manual) Lymphocytes % (Manual) Monocytes % (Manual) Eosinophils % (Manual) Basophils % (Manual) Nucleated RBC % Seg Neutrophils # Seg Neutrophils # Man Lymphocytes # (Manual) Monocytes # (Manual) Eosinophils # (Manual) Basophils # (Manual) PT INR Fibrinogen dRVVT Confirm Interp Factor V Activity POC ABG pH POC ABG pCO2 POC ABG pO2 ABG pO2 ABG HCO3 ABG Base Excess ABG Hemoglobin Oxyhemoglobin Sodium Potassium Chloride Carbon Dioxide BUN Creatinine Glucose POC Glucose 165 H 193 H Lactic Acid Calcium Phosphorus Magnesium Direct Bilirubin AST ALT Alkaline Phosphatase Lactate Dehydrogenase Troponin T C-Reactive Protein Total Protein Albumin Prealbumin Triglycerides Cholesterol LDL Cholesterol Direct HDL Cholesterol PTH Intact Urine pH Urine WBC (Auto) Urine Creatinine Urine Total Protein Fluid Total Protein Vancomycin Trough Rheumatoid Factor Complement C4 Miscellaneous Test Flexitest 1 H Crossmatch 10/13/16 10/13/16 10/13/16 18:09 Unknown Unknown WBC 23.4 H RBC 2.83 L Hgb 8.7 L Hct 26.1 L MCV MCH MCHC RDW 18.1 H Plt Count Lymph % (Auto) [place] % (Auto) Lymph # [place] # Baso # Seg Neutrophils % Seg Neuts % (Manual) Lymphocytes % (Manual) Monocytes % (Manual) Eosinophils % (Manual) Basophils % (Manual) Nucleated RBC % Seg Neutrophils # Seg Neutrophils # Man Lymphocytes # (Manual) Monocytes # (Manual) Eosinophils # (Manual) Basophils # (Manual) PT INR Fibrinogen dRVVT Confirm Interp Factor V Activity POC ABG pH POC ABG pCO2 POC ABG pO2 ABG pO2 ABG HCO3 ABG Base Excess ABG Hemoglobin Oxyhemoglobin Sodium Potassium Chloride 95.8 L Carbon Dioxide BUN 82 H Creatinine 2.6 H Glucose 152 H POC Glucose 166 H Lactic Acid Calcium Phosphorus Magnesium Direct Bilirubin AST ALT Alkaline Phosphatase Lactate Dehydrogenase Troponin T C-Reactive Protein Total Protein Albumin Prealbumin Triglycerides Cholesterol LDL Cholesterol Direct HDL Cholesterol PTH Intact Urine pH Urine WBC (Auto) Urine Creatinine Urine Total Protein Fluid Total Protein Vancomycin Trough Rheumatoid Factor Complement C4 Miscellaneous Test Crossmatch 10/14/16 10/14/16 10/14/16 05:38 06:35 08:10 WBC 20.7 H RBC 2.81 L Hgb 8.4 L Hct 27.2 L MCV MCH MCHC RDW 19.4 H Plt Count Lymph % (Auto) [place] % (Auto) Lymph # [place] # Baso # Seg Neutrophils % Seg Neuts % (Manual) Lymphocytes % (Manual) Monocytes % (Manual) Eosinophils % (Manual) Basophils % (Manual) Nucleated RBC % Seg Neutrophils # Seg Neutrophils # Man Lymphocytes # (Manual) Monocytes # (Manual) Eosinophils # (Manual) Basophils # (Manual) PT INR Fibrinogen dRVVT Confirm Interp Factor V Activity POC ABG pH POC ABG pCO2 POC ABG pO2 ABG pO2 ABG HCO3 ABG Base Excess ABG Hemoglobin Oxyhemoglobin Sodium Potassium Chloride Carbon Dioxide BUN 58 H Creatinine 1.9 H Glucose 169 H POC Glucose 195 H Lactic Acid Calcium Phosphorus Magnesium Direct Bilirubin AST ALT Alkaline Phosphatase Lactate Dehydrogenase Troponin T C-Reactive Protein Total Protein Albumin Prealbumin Triglycerides Cholesterol LDL Cholesterol Direct HDL Cholesterol PTH Intact Urine pH Urine WBC (Auto) Urine Creatinine Urine Total Protein Fluid Total Protein Vancomycin Trough Rheumatoid Factor Complement C4 Miscellaneous Test Crossmatch 10/14/16 10/14/16 10/14/16 11:44 17:13 23:28 WBC RBC Hgb Hct MCV MCH MCHC RDW Plt Count Lymph % (Auto) [place] % (Auto) Lymph # [place] # Baso # Seg Neutrophils % Seg Neuts % (Manual) Lymphocytes % (Manual) Monocytes % (Manual) Eosinophils % (Manual) Basophils % (Manual) Nucleated RBC % Seg Neutrophils # Seg Neutrophils # Man Lymphocytes # (Manual) Monocytes # (Manual) Eosinophils # (Manual) Basophils # (Manual) PT INR Fibrinogen dRVVT Confirm Interp Factor V Activity POC ABG pH POC ABG pCO2 POC ABG pO2 ABG pO2 ABG HCO3 ABG Base Excess ABG Hemoglobin Oxyhemoglobin Sodium Potassium Chloride Carbon Dioxide BUN Creatinine Glucose POC Glucose 174 H 121 H 151 H Lactic Acid Calcium Phosphorus Magnesium Direct Bilirubin AST ALT Alkaline Phosphatase Lactate Dehydrogenase Troponin T C-Reactive Protein Total Protein Albumin Prealbumin Triglycerides Cholesterol LDL Cholesterol Direct HDL Cholesterol PTH Intact Urine pH Urine WBC (Auto) Urine Creatinine Urine Total Protein Fluid Total Protein Vancomycin Trough Rheumatoid Factor Complement C4 Miscellaneous Test Crossmatch 10/15/16 10/15/16 10/15/16 05:06 12:26 17:48 WBC RBC Hgb Hct MCV MCH MCHC RDW Plt Count Lymph % (Auto) [place] % (Auto) Lymph # [place] # Baso # Seg Neutrophils % Seg Neuts % (Manual) Lymphocytes % (Manual) Monocytes % (Manual) Eosinophils % (Manual) Basophils % (Manual) Nucleated RBC % Seg Neutrophils # Seg Neutrophils # Man Lymphocytes # (Manual) Monocytes # (Manual) Eosinophils # (Manual) Basophils # (Manual) PT INR Fibrinogen dRVVT Confirm Interp Factor V Activity POC ABG pH POC ABG pCO2 POC ABG pO2 ABG pO2 ABG HCO3 ABG Base Excess ABG Hemoglobin Oxyhemoglobin Sodium Potassium Chloride Carbon Dioxide BUN Creatinine Glucose POC Glucose 151 H 149 H 153 H Lactic Acid Calcium Phosphorus Magnesium Direct Bilirubin AST ALT Alkaline Phosphatase Lactate Dehydrogenase Troponin T C-Reactive Protein Total Protein Albumin Prealbumin Triglycerides Cholesterol LDL Cholesterol Direct HDL Cholesterol PTH Intact Urine pH Urine WBC (Auto) Urine Creatinine Urine Total Protein Fluid Total Protein Vancomycin Trough Rheumatoid Factor Complement C4 Miscellaneous Test Crossmatch 10/15/16 10/15/16 10/16/16 Unknown Unknown 00:02 WBC 23.4 H RBC 2.78 L Hgb 8.5 L Hct 25.7 L MCV MCH MCHC RDW 18.7 H Plt Count Lymph % (Auto) [place] % (Auto) Lymph # [place] # Baso # Seg Neutrophils % Seg Neuts % (Manual) Lymphocytes % (Manual) Monocytes % (Manual) Eosinophils % (Manual) Basophils % (Manual) Nucleated RBC % Seg Neutrophils # Seg Neutrophils # Man Lymphocytes # (Manual) Monocytes # (Manual) Eosinophils # (Manual) Basophils # (Manual) PT INR Fibrinogen dRVVT Confirm Interp Factor V Activity POC ABG pH POC ABG pCO2 POC ABG pO2 ABG pO2 ABG HCO3 ABG Base Excess ABG Hemoglobin Oxyhemoglobin Sodium Potassium Chloride Carbon Dioxide BUN 73 H Creatinine 2.3 H Glucose 120 H POC Glucose 137 H Lactic Acid Calcium Phosphorus Magnesium Direct Bilirubin AST ALT Alkaline Phosphatase Lactate Dehydrogenase Troponin T C-Reactive Protein Total Protein Albumin Prealbumin Triglycerides Cholesterol LDL Cholesterol Direct HDL Cholesterol PTH Intact Urine pH Urine WBC (Auto) Urine Creatinine Urine Total Protein Fluid Total Protein Vancomycin Trough Rheumatoid Factor Complement C4 Miscellaneous Test Crossmatch 10/16/16 10/16/16 10/16/16 05:44 06:25 06:25 WBC 22.5 H RBC 2.76 L Hgb 8.3 L Hct 25.2 L MCV MCH MCHC RDW 18.3 H Plt Count Lymph % (Auto) [place] % (Auto) Lymph # [place] # Baso # Seg Neutrophils % Seg Neuts % (Manual) Lymphocytes % (Manual) Monocytes % (Manual) Eosinophils % (Manual) Basophils % (Manual) Nucleated RBC % Seg Neutrophils # Seg Neutrophils # Man Lymphocytes # (Manual) Monocytes # (Manual) Eosinophils # (Manual) Basophils # (Manual) PT INR Fibrinogen dRVVT Confirm Interp Factor V Activity POC ABG pH POC ABG pCO2 POC ABG pO2 ABG pO2 ABG HCO3 ABG Base Excess ABG Hemoglobin Oxyhemoglobin Sodium Potassium Chloride Carbon Dioxide BUN 92 H Creatinine 3.0 H Glucose 138 H POC Glucose 110 H Lactic Acid Calcium Phosphorus Magnesium Direct Bilirubin AST ALT Alkaline Phosphatase Lactate Dehydrogenase Troponin T C-Reactive Protein Total Protein Albumin Prealbumin Triglycerides Cholesterol LDL Cholesterol Direct HDL Cholesterol PTH Intact Urine pH Urine WBC (Auto) Urine Creatinine Urine Total Protein Fluid Total Protein Vancomycin Trough Rheumatoid Factor Complement C4 Miscellaneous Test Crossmatch 10/16/16 10/16/16 10/16/16 11:27 11:48 17:36 WBC RBC Hgb Hct MCV MCH MCHC RDW Plt Count Lymph % (Auto) [place] % (Auto) Lymph # [place] # Baso # Seg Neutrophils % Seg Neuts % (Manual) Lymphocytes % (Manual) Monocytes % (Manual) Eosinophils % (Manual) Basophils % (Manual) Nucleated RBC % Seg Neutrophils # Seg Neutrophils # Man Lymphocytes # (Manual) Monocytes # (Manual) Eosinophils # (Manual) Basophils # (Manual) PT INR Fibrinogen dRVVT Confirm Interp Factor V Activity POC ABG pH 7.582 H POC ABG pCO2 27.4 L POC ABG pO2 110 H ABG pO2 ABG HCO3 ABG Base Excess ABG Hemoglobin Oxyhemoglobin Sodium Potassium Chloride Carbon Dioxide BUN Creatinine Glucose POC Glucose 121 H 133 H Lactic Acid Calcium Phosphorus Magnesium Direct Bilirubin AST ALT Alkaline Phosphatase Lactate Dehydrogenase Troponin T C-Reactive Protein Total Protein Albumin Prealbumin Triglycerides Cholesterol LDL Cholesterol Direct HDL Cholesterol PTH Intact Urine pH Urine WBC (Auto) Urine Creatinine Urine Total Protein Fluid Total Protein Vancomycin Trough Rheumatoid Factor Complement C4 Miscellaneous Test Crossmatch 10/16/16 10/17/16 10/17/16 20:48 04:24 04:24 WBC 21.4 H RBC 2.72 L Hgb 8.0 L Hct 25.2 L MCV MCH MCHC RDW 18.0 H Plt Count Lymph % (Auto) [place] % (Auto) Lymph # [place] # Baso # Seg Neutrophils % Seg Neuts % (Manual) Lymphocytes % (Manual) Monocytes % (Manual) Eosinophils % (Manual) Basophils % (Manual) Nucleated RBC % Seg Neutrophils # Seg Neutrophils # Man Lymphocytes # (Manual) Monocytes # (Manual) Eosinophils # (Manual) Basophils # (Manual) PT INR Fibrinogen dRVVT Confirm Interp Factor V Activity POC ABG pH 7.561 H POC ABG pCO2 24.4 L POC ABG pO2 77 L ABG pO2 ABG HCO3 ABG Base Excess ABG Hemoglobin Oxyhemoglobin Sodium 148 H Potassium Chloride Carbon Dioxide BUN 104 H Creatinine 3.0 H Glucose 149 H POC Glucose Lactic Acid Calcium Phosphorus Magnesium Direct Bilirubin AST ALT Alkaline Phosphatase 138 H Lactate Dehydrogenase Troponin T C-Reactive Protein Total Protein 6.2 L Albumin 1.5 L Prealbumin Triglycerides Cholesterol LDL Cholesterol Direct HDL Cholesterol PTH Intact Urine pH Urine WBC (Auto) Urine Creatinine Urine Total Protein Fluid Total Protein Vancomycin Trough Rheumatoid Factor Complement C4 Miscellaneous Test Crossmatch 10/17/16 10/17/16 10/17/16 06:02 12:17 17:14 WBC RBC Hgb Hct MCV MCH MCHC RDW Plt Count Lymph % (Auto) [place] % (Auto) Lymph # [place] # Baso # Seg Neutrophils % Seg Neuts % (Manual) Lymphocytes % (Manual) Monocytes % (Manual) Eosinophils % (Manual) Basophils % (Manual) Nucleated RBC % Seg Neutrophils # Seg Neutrophils # Man Lymphocytes # (Manual) Monocytes # (Manual) Eosinophils # (Manual) Basophils # (Manual) PT INR Fibrinogen dRVVT Confirm Interp Factor V Activity POC ABG pH POC ABG pCO2 POC ABG pO2 ABG pO2 ABG HCO3 ABG Base Excess ABG Hemoglobin Oxyhemoglobin Sodium Potassium Chloride Carbon Dioxide BUN Creatinine Glucose POC Glucose 170 H 167 H 126 H Lactic Acid Calcium Phosphorus Magnesium Direct Bilirubin AST ALT Alkaline Phosphatase Lactate Dehydrogenase Troponin T C-Reactive Protein Total Protein Albumin Prealbumin Triglycerides Cholesterol LDL Cholesterol Direct HDL Cholesterol PTH Intact Urine pH Urine WBC (Auto) Urine Creatinine Urine Total Protein Fluid Total Protein Vancomycin Trough Rheumatoid Factor Complement C4 Miscellaneous Test Crossmatch 10/17/16 10/18/16 10/18/16 23:17 04:00 04:00 WBC 20.7 H RBC 2.47 L Hgb 7.4 L Hct 22.9 L MCV MCH MCHC RDW 17.5 H Plt Count Lymph % (Auto) [place] % (Auto) Lymph # [place] # Baso # Seg Neutrophils % Seg Neuts % (Manual) Lymphocytes % (Manual) Monocytes % (Manual) Eosinophils % (Manual) Basophils % (Manual) Nucleated RBC % Seg Neutrophils # Seg Neutrophils # Man Lymphocytes # (Manual) Monocytes # (Manual) Eosinophils # (Manual) Basophils # (Manual) PT INR Fibrinogen dRVVT Confirm Interp Factor V Activity POC ABG pH POC ABG pCO2 POC ABG pO2 ABG pO2 ABG HCO3 ABG Base Excess ABG Hemoglobin Oxyhemoglobin Sodium 149 H Potassium Chloride 107.9 H Carbon Dioxide 20 L BUN 117 H Creatinine 3.2 H Glucose 119 H POC Glucose 121 H Lactic Acid Calcium Phosphorus Magnesium Direct Bilirubin AST ALT Alkaline Phosphatase Lactate Dehydrogenase Troponin T C-Reactive Protein Total Protein Albumin Prealbumin Triglycerides Cholesterol LDL Cholesterol Direct HDL Cholesterol PTH Intact Urine pH Urine WBC (Auto) Urine Creatinine Urine Total Protein Fluid Total Protein Vancomycin Trough Rheumatoid Factor Complement C4 Miscellaneous Test Crossmatch 10/18/16 10/18/16 10/18/16 05:23 10:46 17:30 WBC RBC Hgb Hct MCV MCH MCHC RDW Plt Count Lymph % (Auto) [place] % (Auto) Lymph # [place] # Baso # Seg Neutrophils % Seg Neuts % (Manual) Lymphocytes % (Manual) Monocytes % (Manual) Eosinophils % (Manual) Basophils % (Manual) Nucleated RBC % Seg Neutrophils # Seg Neutrophils # Man Lymphocytes # (Manual) Monocytes # (Manual) Eosinophils # (Manual) Basophils # (Manual) PT INR Fibrinogen dRVVT Confirm Interp Factor V Activity POC ABG pH POC ABG pCO2 POC ABG pO2 ABG pO2 ABG HCO3 ABG Base Excess ABG Hemoglobin Oxyhemoglobin Sodium Potassium Chloride Carbon Dioxide BUN Creatinine Glucose POC Glucose 119 H 155 H 124 H Lactic Acid Calcium Phosphorus Magnesium Direct Bilirubin AST ALT Alkaline Phosphatase Lactate Dehydrogenase Troponin T C-Reactive Protein Total Protein Albumin Prealbumin Triglycerides Cholesterol LDL Cholesterol Direct HDL Cholesterol PTH Intact Urine pH Urine WBC (Auto) Urine Creatinine Urine Total Protein Fluid Total Protein Vancomycin Trough Rheumatoid Factor Complement C4 Miscellaneous Test Crossmatch 10/19/16 10/19/16 10/19/16 04:00 04:00 05:25 WBC 17.4 H RBC 2.54 L Hgb 7.7 L Hct 23.6 L MCV MCH MCHC RDW 17.3 H Plt Count Lymph % (Auto) [place] % (Auto) Lymph # [place] # Baso # Seg Neutrophils % Seg Neuts % (Manual) Lymphocytes % (Manual) Monocytes % (Manual) Eosinophils % (Manual) Basophils % (Manual) Nucleated RBC % Seg Neutrophils # Seg Neutrophils # Man Lymphocytes # (Manual) Monocytes # (Manual) Eosinophils # (Manual) Basophils # (Manual) PT INR Fibrinogen dRVVT Confirm Interp Factor V Activity POC ABG pH POC ABG pCO2 POC ABG pO2 ABG pO2 ABG HCO3 ABG Base Excess ABG Hemoglobin Oxyhemoglobin Sodium Potassium Chloride Carbon Dioxide BUN 72 H Creatinine 2.1 H Glucose 116 H POC Glucose 119 H Lactic Acid Calcium Phosphorus Magnesium Direct Bilirubin AST ALT Alkaline Phosphatase Lactate Dehydrogenase Troponin T C-Reactive Protein Total Protein Albumin Prealbumin Triglycerides Cholesterol LDL Cholesterol Direct HDL Cholesterol PTH Intact Urine pH Urine WBC (Auto) Urine Creatinine Urine Total Protein Fluid Total Protein Vancomycin Trough Rheumatoid Factor Complement C4 Miscellaneous Test Crossmatch 10/19/16 10/19/16 10/20/16 11:46 23:59 06:00 WBC RBC Hgb Hct MCV MCH MCHC RDW Plt Count Lymph % (Auto) [place] % (Auto) Lymph # [place] # Baso # Seg Neutrophils % Seg Neuts % (Manual) Lymphocytes % (Manual) Monocytes % (Manual) Eosinophils % (Manual) Basophils % (Manual) Nucleated RBC % Seg Neutrophils # Seg Neutrophils # Man Lymphocytes # (Manual) Monocytes # (Manual) Eosinophils # (Manual) Basophils # (Manual) PT INR Fibrinogen dRVVT Confirm Interp Factor V Activity POC ABG pH POC ABG pCO2 POC ABG pO2 ABG pO2 ABG HCO3 ABG Base Excess ABG Hemoglobin Oxyhemoglobin Sodium Potassium Chloride Carbon Dioxide 17 L BUN 94 H Creatinine 2.7 H Glucose POC Glucose 116 H 117 H Lactic Acid Calcium Phosphorus Magnesium Direct Bilirubin AST ALT Alkaline Phosphatase Lactate Dehydrogenase Troponin T C-Reactive Protein Total Protein Albumin Prealbumin Triglycerides Cholesterol LDL Cholesterol Direct HDL Cholesterol PTH Intact Urine pH Urine WBC (Auto) Urine Creatinine Urine Total Protein Fluid Total Protein Vancomycin Trough Rheumatoid Factor Complement C4 Miscellaneous Test Crossmatch 10/20/16 10/20/16 10/20/16 06:00 11:49 16:00 WBC 19.7 H RBC 2.51 L Hgb 7.7 L Hct 23.5 L MCV MCH MCHC RDW 17.5 H Plt Count Lymph % (Auto) [place] % (Auto) Lymph # [place] # Baso # Seg Neutrophils % Seg Neuts % (Manual) Lymphocytes % (Manual) Monocytes % (Manual) Eosinophils % (Manual) Basophils % (Manual) Nucleated RBC % Seg Neutrophils # Seg Neutrophils # Man Lymphocytes # (Manual) Monocytes # (Manual) Eosinophils # (Manual) Basophils # (Manual) PT INR Fibrinogen dRVVT Confirm Interp Factor V Activity POC ABG pH POC ABG pCO2 POC ABG pO2 ABG pO2 ABG HCO3 ABG Base Excess ABG Hemoglobin Oxyhemoglobin Sodium Potassium Chloride Carbon Dioxide BUN Creatinine Glucose POC Glucose 117 H Lactic Acid Calcium Phosphorus Magnesium Direct Bilirubin AST ALT Alkaline Phosphatase Lactate Dehydrogenase Troponin T C-Reactive Protein Total Protein Albumin Prealbumin Triglycerides Cholesterol LDL Cholesterol Direct HDL Cholesterol PTH Intact Urine pH Urine WBC (Auto) Urine Creatinine Urine Total Protein Fluid Total Protein Vancomycin Trough Rheumatoid Factor Complement C4 Miscellaneous Test Flexitest 1 H Crossmatch 10/20/16 10/20/16 10/21/16 18:36 23:39 04:00 WBC RBC Hgb Hct MCV MCH MCHC RDW Plt Count Lymph % (Auto) [place] % (Auto) Lymph # [place] # Baso # Seg Neutrophils % Seg Neuts % (Manual) Lymphocytes % (Manual) Monocytes % (Manual) Eosinophils % (Manual) Basophils % (Manual) Nucleated RBC % Seg Neutrophils # Seg Neutrophils # Man Lymphocytes # (Manual) Monocytes # (Manual) Eosinophils # (Manual) Basophils # (Manual) PT INR Fibrinogen dRVVT Confirm Interp Factor V Activity POC ABG pH POC ABG pCO2 POC ABG pO2 ABG pO2 ABG HCO3 ABG Base Excess ABG Hemoglobin Oxyhemoglobin Sodium Potassium 5.4 H D Chloride Carbon Dioxide 15 L BUN 110 H Creatinine 3.0 H Glucose POC Glucose 127 H 114 H Lactic Acid Calcium Phosphorus Magnesium Direct Bilirubin AST ALT Alkaline Phosphatase Lactate Dehydrogenase Troponin T C-Reactive Protein Total Protein Albumin Prealbumin Triglycerides Cholesterol LDL Cholesterol Direct HDL Cholesterol PTH Intact Urine pH Urine WBC (Auto) Urine Creatinine Urine Total Protein Fluid Total Protein Vancomycin Trough Rheumatoid Factor Complement C4 Miscellaneous Test Crossmatch 09/01/17 09/01/17 09/02/17 05:54 23:46 05:18 WBC RBC Hgb Hct MCV MCH MCHC RDW Plt Count Lymph % (Auto) [place] % (Auto) Lymph # [place] # Baso # Seg Neutrophils % Seg Neuts % (Manual) Lymphocytes % (Manual) Monocytes % (Manual) Eosinophils % (Manual) Basophils % (Manual) Nucleated RBC % Seg Neutrophils # Seg Neutrophils # Man Lymphocytes # (Manual) Monocytes # (Manual) Eosinophils # (Manual) Basophils # (Manual) PT INR Fibrinogen dRVVT Confirm Interp Factor V Activity POC ABG pH POC ABG pCO2 POC ABG pO2 ABG pO2 ABG HCO3 ABG Base Excess ABG Hemoglobin Oxyhemoglobin Sodium Potassium Chloride Carbon Dioxide BUN Creatinine Glucose POC Glucose 119 H 108 H 109 H Lactic Acid Calcium Phosphorus Magnesium Direct Bilirubin AST ALT Alkaline Phosphatase Lactate Dehydrogenase Troponin T C-Reactive Protein Total Protein Albumin Prealbumin Triglycerides Cholesterol LDL Cholesterol Direct HDL Cholesterol PTH Intact Urine pH Urine WBC (Auto) Urine Creatinine Urine Total Protein Fluid Total Protein Vancomycin Trough Rheumatoid Factor Complement C4 Miscellaneous Test Crossmatch 10/22/16 10/22/16 10/22/16 06:40 06:40 06:40 WBC 14.0 H RBC 2.03 L Hgb 7.0 L Hct 20.5 L MCV 98 H MCH 34 H MCHC 35 H RDW 17.8 H Plt Count Lymph % (Auto) [place] % (Auto) 9.9 H Lymph # [place] # 1.4 H Baso # 0.2 H Seg Neutrophils % 72.0 H Seg Neuts % (Manual) Lymphocytes % (Manual) Monocytes % (Manual) Eosinophils % (Manual) Basophils % (Manual) Nucleated RBC % Seg Neutrophils # 10.0 H Seg Neutrophils # Man Lymphocytes # (Manual) Monocytes # (Manual) Eosinophils # (Manual) Basophils # (Manual) PT INR Fibrinogen dRVVT Confirm Interp Factor V Activity POC ABG pH POC ABG pCO2 POC ABG pO2 ABG pO2 ABG HCO3 ABG Base Excess ABG Hemoglobin Oxyhemoglobin Sodium 130 L D Potassium Chloride 92.4 L Carbon Dioxide 20 L BUN 50 H Creatinine 1.6 H Glucose 589 H* POC Glucose Lactic Acid Calcium 7.8 L D Phosphorus Magnesium 1.60 L Direct Bilirubin AST ALT Alkaline Phosphatase Lactate Dehydrogenase Troponin T C-Reactive Protein Total Protein Albumin Prealbumin Triglycerides Cholesterol LDL Cholesterol Direct HDL Cholesterol PTH Intact Urine pH Urine WBC (Auto) Urine Creatinine Urine Total Protein Fluid Total Protein Vancomycin Trough Rheumatoid Factor Complement C4 Miscellaneous Test Crossmatch 10/22/16 10/22/16 10/22/16 11:39 16:44 23:36 WBC RBC Hgb Hct MCV MCH MCHC RDW Plt Count Lymph % (Auto) [place] % (Auto) Lymph # [place] # Baso # Seg Neutrophils % Seg Neuts % (Manual) Lymphocytes % (Manual) Monocytes % (Manual) Eosinophils % (Manual) Basophils % (Manual) Nucleated RBC % Seg Neutrophils # Seg Neutrophils # Man Lymphocytes # (Manual) Monocytes # (Manual) Eosinophils # (Manual) Basophils # (Manual) PT INR Fibrinogen dRVVT Confirm Interp Factor V Activity POC ABG pH POC ABG pCO2 POC ABG pO2 ABG pO2 ABG HCO3 ABG Base Excess ABG Hemoglobin Oxyhemoglobin Sodium Potassium Chloride Carbon Dioxide BUN Creatinine Glucose POC Glucose 142 H 163 H 123 H Lactic Acid Calcium Phosphorus Magnesium Direct Bilirubin AST ALT Alkaline Phosphatase Lactate Dehydrogenase Troponin T C-Reactive Protein Total Protein Albumin Prealbumin Triglycerides Cholesterol LDL Cholesterol Direct HDL Cholesterol PTH Intact Urine pH Urine WBC (Auto) Urine Creatinine Urine Total Protein Fluid Total Protein Vancomycin Trough Rheumatoid Factor Complement C4 Miscellaneous Test Crossmatch 10/23/16 10/23/16 10/23/16 04:58 06:00 12:12 WBC RBC Hgb Hct MCV MCH MCHC RDW Plt Count Lymph % (Auto) [place] % (Auto) Lymph # [place] # Baso # Seg Neutrophils % Seg Neuts % (Manual) Lymphocytes % (Manual) Monocytes % (Manual) Eosinophils % (Manual) Basophils % (Manual) Nucleated RBC % Seg Neutrophils # Seg Neutrophils # Man Lymphocytes # (Manual) Monocytes # (Manual) Eosinophils # (Manual) Basophils # (Manual) PT INR Fibrinogen dRVVT Confirm Interp Factor V Activity POC ABG pH POC ABG pCO2 POC ABG pO2 ABG pO2 ABG HCO3 ABG Base Excess ABG Hemoglobin Oxyhemoglobin Sodium 133 L Potassium 3.5 L Chloride 96.1 L Carbon Dioxide 18 L BUN 76 H Creatinine 2.1 H Glucose POC Glucose 133 H 138 H Lactic Acid Calcium 8.3 L Phosphorus Magnesium Direct Bilirubin AST ALT Alkaline Phosphatase Lactate Dehydrogenase Troponin T C-Reactive Protein Total Protein Albumin Prealbumin Triglycerides Cholesterol LDL Cholesterol Direct HDL Cholesterol PTH Intact Urine pH Urine WBC (Auto) Urine Creatinine Urine Total Protein Fluid Total Protein Vancomycin Trough Rheumatoid Factor Complement C4 Miscellaneous Test Crossmatch 09/05/0610/23/16 10/24/16 16:53 23:37 04:00 WBC RBC Hgb Hct MCV MCH MCHC RDW Plt Count Lymph % (Auto) [place] % (Auto) Lymph # [place] # Baso # Seg Neutrophils % Seg Neuts % (Manual) Lymphocytes % (Manual) Monocytes % (Manual) Eosinophils % (Manual) Basophils % (Manual) Nucleated RBC % Seg Neutrophils # Seg Neutrophils # Man Lymphocytes # (Manual) Monocytes # (Manual) Eosinophils # (Manual) Basophils # (Manual) PT INR Fibrinogen dRVVT Confirm Interp Factor V Activity POC ABG pH POC ABG pCO2 POC ABG pO2 ABG pO2 ABG HCO3 ABG Base Excess ABG Hemoglobin Oxyhemoglobin Sodium 131 L Potassium Chloride 94.5 L Carbon Dioxide 19 L BUN 97 H Creatinine 2.6 H Glucose 110 H POC Glucose 125 H 123 H Lactic Acid Calcium 8.3 L Phosphorus Magnesium Direct Bilirubin AST ALT Alkaline Phosphatase Lactate Dehydrogenase Troponin T C-Reactive Protein Total Protein Albumin Prealbumin Triglycerides Cholesterol LDL Cholesterol Direct HDL Cholesterol PTH Intact Urine pH Urine WBC (Auto) Urine Creatinine Urine Total Protein Fluid Total Protein Vancomycin Trough Rheumatoid Factor Complement C4 Miscellaneous Test Crossmatch 10/24/16 10/24/16 10/24/16 07:49 11:39 17:52 WBC RBC Hgb 6.0 L Hct 19.7 L* MCV MCH MCHC RDW Plt Count Lymph % (Auto) [place] % (Auto) Lymph # [place] # Baso # Seg Neutrophils % Seg Neuts % (Manual) Lymphocytes % (Manual) Monocytes % (Manual) Eosinophils % (Manual) Basophils % (Manual) Nucleated RBC % Seg Neutrophils # Seg Neutrophils # Man Lymphocytes # (Manual) Monocytes # (Manual) Eosinophils # (Manual) Basophils # (Manual) PT INR Fibrinogen dRVVT Confirm Interp Factor V Activity POC ABG pH POC ABG pCO2 POC ABG pO2 ABG pO2 ABG HCO3 ABG Base Excess ABG Hemoglobin Oxyhemoglobin Sodium Potassium Chloride Carbon Dioxide BUN Creatinine Glucose POC Glucose 106 H 158 H Lactic Acid Calcium Phosphorus Magnesium Direct Bilirubin AST ALT Alkaline Phosphatase Lactate Dehydrogenase Troponin T C-Reactive Protein Total Protein Albumin Prealbumin Triglycerides Cholesterol LDL Cholesterol Direct HDL Cholesterol PTH Intact Urine pH Urine WBC (Auto) Urine Creatinine Urine Total Protein Fluid Total Protein Vancomycin Trough Rheumatoid Factor Complement C4 Miscellaneous Test Crossmatch 10/24/16 10/24/16 10/24/16 20:00 22:27 Unknown WBC RBC Hgb 9.4 L D Hct 27.5 L D MCV MCH MCHC RDW Plt Count Lymph % (Auto) [place] % (Auto) Lymph # [place] # Baso # Seg Neutrophils % Seg Neuts % (Manual) Lymphocytes % (Manual) Monocytes % (Manual) Eosinophils % (Manual) Basophils % (Manual) Nucleated RBC % Seg Neutrophils # Seg Neutrophils # Man Lymphocytes # (Manual) Monocytes # (Manual) Eosinophils # (Manual) Basophils # (Manual) PT INR Fibrinogen dRVVT Confirm Interp Factor V Activity POC ABG pH POC ABG pCO2 POC ABG pO2 ABG pO2 ABG HCO3 ABG Base Excess ABG Hemoglobin Oxyhemoglobin Sodium Potassium Chloride Carbon Dioxide BUN Creatinine Glucose POC Glucose 125 H Lactic Acid Calcium Phosphorus Magnesium Direct Bilirubin AST ALT Alkaline Phosphatase Lactate Dehydrogenase Troponin T C-Reactive Protein Total Protein Albumin Prealbumin Triglycerides Cholesterol LDL Cholesterol Direct HDL Cholesterol PTH Intact Urine pH Urine WBC (Auto) Urine Creatinine Urine Total Protein Fluid Total Protein Vancomycin Trough Rheumatoid Factor Complement C4 Miscellaneous Test Crossmatch See Detail 10/25/16 10/25/16 10/25/16 04:00 04:00 04:00 WBC 14.2 H RBC 2.98 L Hgb 9.0 L Hct 26.2 L MCV MCH MCHC RDW 16.6 H Plt Count Lymph % (Auto) [place] % (Auto) 10.7 H Lymph # [place] # 1.5 H Baso # Seg Neutrophils % 73.6 H Seg Neuts % (Manual) Lymphocytes % (Manual) Monocytes % (Manual) Eosinophils % (Manual) Basophils % (Manual) Nucleated RBC % Seg Neutrophils # 10.5 H Seg Neutrophils # Man Lymphocytes # (Manual) Monocytes # (Manual) Eosinophils # (Manual) Basophils # (Manual) PT INR Fibrinogen dRVVT Confirm Interp Factor V Activity POC ABG pH POC ABG pCO2 POC ABG pO2 ABG pO2 ABG HCO3 ABG Base Excess ABG Hemoglobin Oxyhemoglobin Sodium 132 L Potassium Chloride 94.7 L Carbon Dioxide BUN 51 H Creatinine 1.6 H Glucose 130 H POC Glucose Lactic Acid Calcium 8.3 L Phosphorus 1.60 L D Magnesium Direct Bilirubin AST ALT Alkaline Phosphatase Lactate Dehydrogenase Troponin T C-Reactive Protein Total Protein Albumin Prealbumin Triglycerides Cholesterol LDL Cholesterol Direct HDL Cholesterol PTH Intact Urine pH Urine WBC (Auto) Urine Creatinine Urine Total Protein Fluid Total Protein Vancomycin Trough Rheumatoid Factor Complement C4 Miscellaneous Test Crossmatch 10/25/16 10/25/16 10/25/16 04:32 11:48 17:22 WBC RBC Hgb Hct MCV MCH MCHC RDW Plt Count Lymph % (Auto) [place] % (Auto) Lymph # [place] # Baso # Seg Neutrophils % Seg Neuts % (Manual) Lymphocytes % (Manual) Monocytes % (Manual) Eosinophils % (Manual) Basophils % (Manual) Nucleated RBC % Seg Neutrophils # Seg Neutrophils # Man Lymphocytes # (Manual) Monocytes # (Manual) Eosinophils # (Manual) Basophils # (Manual) PT INR Fibrinogen dRVVT Confirm Interp Factor V Activity POC ABG pH POC ABG pCO2 POC ABG pO2 ABG pO2 ABG HCO3 ABG Base Excess ABG Hemoglobin Oxyhemoglobin Sodium Potassium Chloride Carbon Dioxide BUN Creatinine Glucose POC Glucose 124 H 171 H 120 H Lactic Acid Calcium Phosphorus Magnesium Direct Bilirubin AST ALT Alkaline Phosphatase Lactate Dehydrogenase Troponin T C-Reactive Protein Total Protein Albumin Prealbumin Triglycerides Cholesterol LDL Cholesterol Direct HDL Cholesterol PTH Intact Urine pH Urine WBC (Auto) Urine Creatinine Urine Total Protein Fluid Total Protein Vancomycin Trough Rheumatoid Factor Complement C4 Miscellaneous Test Crossmatch 10/26/16 10/26/16 10/26/16 04:54 07:06 07:06 WBC 16.9 H RBC 3.06 L Hgb 9.1 L Hct 26.9 L MCV MCH MCHC RDW 16.9 H Plt Count Lymph % (Auto) [place] % (Auto) Lymph # [place] # Baso # Seg Neutrophils % Seg Neuts % (Manual) 71.0 H Lymphocytes % (Manual) 5.0 L Monocytes % (Manual) 12.0 H Eosinophils % (Manual) Basophils % (Manual) Nucleated RBC % Seg Neutrophils # Seg Neutrophils # Man 12.0 H Lymphocytes # (Manual) 0.8 L Monocytes # (Manual) 2.0 H Eosinophils # (Manual) Basophils # (Manual) PT INR Fibrinogen dRVVT Confirm Interp Factor V Activity POC ABG pH POC ABG pCO2 POC ABG pO2 ABG pO2 ABG HCO3 ABG Base Excess ABG Hemoglobin Oxyhemoglobin Sodium 135 L Potassium Chloride 97.1 L Carbon Dioxide BUN 73 H Creatinine 2.2 H Glucose 117 H POC Glucose 123 H Lactic Acid Calcium Phosphorus 1.70 L Magnesium Direct Bilirubin AST ALT Alkaline Phosphatase Lactate Dehydrogenase Troponin T C-Reactive Protein Total Protein Albumin Prealbumin Triglycerides Cholesterol LDL Cholesterol Direct HDL Cholesterol PTH Intact Urine pH Urine WBC (Auto) Urine Creatinine Urine Total Protein Fluid Total Protein Vancomycin Trough Rheumatoid Factor Complement C4 Miscellaneous Test Crossmatch 10/26/16 10/26/16 10/26/16 12:12 17:29 23:42 WBC RBC Hgb Hct MCV MCH MCHC RDW Plt Count Lymph % (Auto) [place] % (Auto) Lymph # [place] # Baso # Seg Neutrophils % Seg Neuts % (Manual) Lymphocytes % (Manual) Monocytes % (Manual) Eosinophils % (Manual) Basophils % (Manual) Nucleated RBC % Seg Neutrophils # Seg Neutrophils # Man Lymphocytes # (Manual) Monocytes # (Manual) Eosinophils # (Manual) Basophils # (Manual) PT INR Fibrinogen dRVVT Confirm Interp Factor V Activity POC ABG pH POC ABG pCO2 POC ABG pO2 ABG pO2 ABG HCO3 ABG Base Excess ABG Hemoglobin Oxyhemoglobin Sodium Potassium Chloride Carbon Dioxide BUN Creatinine Glucose POC Glucose 126 H 161 H 118 H Lactic Acid Calcium Phosphorus Magnesium Direct Bilirubin AST ALT Alkaline Phosphatase Lactate Dehydrogenase Troponin T C-Reactive Protein Total Protein Albumin Prealbumin Triglycerides Cholesterol LDL Cholesterol Direct HDL Cholesterol PTH Intact Urine pH Urine WBC (Auto) Urine Creatinine Urine Total Protein Fluid Total Protein Vancomycin Trough Rheumatoid Factor Complement C4 Miscellaneous Test Crossmatch 10/27/16 10/27/16 10/27/16 05:03 06:30 06:30 WBC 13.9 H RBC 3.09 L Hgb 9.2 L Hct 27.5 L MCV MCH MCHC RDW 17.0 H Plt Count Lymph % (Auto) [place] % (Auto) Lymph # [place] # Baso # Seg Neutrophils % Seg Neuts % (Manual) 78.0 H Lymphocytes % (Manual) Monocytes % (Manual) Eosinophils % (Manual) Basophils % (Manual) Nucleated RBC % 2.0 H Seg Neutrophils # Seg Neutrophils # Man 10.8 H Lymphocytes # (Manual) Monocytes # (Manual) 1.0 H Eosinophils # (Manual) Basophils # (Manual) PT INR Fibrinogen dRVVT Confirm Interp Factor V Activity POC ABG pH POC ABG pCO2 POC ABG pO2 ABG pO2 ABG HCO3 ABG Base Excess ABG Hemoglobin Oxyhemoglobin Sodium Potassium Chloride Carbon Dioxide BUN 40 H Creatinine 1.5 H Glucose 135 H POC Glucose 107 H Lactic Acid Calcium 8.3 L Phosphorus 1.30 L D Magnesium Direct Bilirubin AST ALT Alkaline Phosphatase Lactate Dehydrogenase Troponin T C-Reactive Protein Total Protein Albumin Prealbumin Triglycerides Cholesterol LDL Cholesterol Direct HDL Cholesterol PTH Intact Urine pH Urine WBC (Auto) Urine Creatinine Urine Total Protein Fluid Total Protein Vancomycin Trough Rheumatoid Factor Complement C4 Miscellaneous Test Crossmatch 10/27/16 10/27/16 10/27/16 13:27 18:07 23:40 WBC RBC Hgb Hct MCV MCH MCHC RDW Plt Count Lymph % (Auto) [place] % (Auto) Lymph # [place] # Baso # Seg Neutrophils % Seg Neuts % (Manual) Lymphocytes % (Manual) Monocytes % (Manual) Eosinophils % (Manual) Basophils % (Manual) Nucleated RBC % Seg Neutrophils # Seg Neutrophils # Man Lymphocytes # (Manual) Monocytes # (Manual) Eosinophils # (Manual) Basophils # (Manual) PT INR Fibrinogen dRVVT Confirm Interp Factor V Activity POC ABG pH POC ABG pCO2 POC ABG pO2 ABG pO2 ABG HCO3 ABG Base Excess ABG Hemoglobin Oxyhemoglobin Sodium Potassium Chloride Carbon Dioxide BUN Creatinine Glucose POC Glucose 117 H 121 H 118 H Lactic Acid Calcium Phosphorus Magnesium Direct Bilirubin AST ALT Alkaline Phosphatase Lactate Dehydrogenase Troponin T C-Reactive Protein Total Protein Albumin Prealbumin Triglycerides Cholesterol LDL Cholesterol Direct HDL Cholesterol PTH Intact Urine pH Urine WBC (Auto) Urine Creatinine Urine Total Protein Fluid Total Protein Vancomycin Trough Rheumatoid Factor Complement C4 Miscellaneous Test Crossmatch 10/28/16 10/28/16 10/28/16 05:48 06:45 06:45 WBC 14.7 H RBC 3.05 L Hgb 9.0 L Hct 26.9 L MCV MCH MCHC RDW 16.8 H Plt Count Lymph % (Auto) 8.2 L [place] % (Auto) 8.4 H Lymph # [place] # 1.2 H Baso # Seg Neutrophils % 81.9 H Seg Neuts % (Manual) Lymphocytes % (Manual) Monocytes % (Manual) Eosinophils % (Manual) Basophils % (Manual) Nucleated RBC % Seg Neutrophils # 12.1 H Seg Neutrophils # Man Lymphocytes # (Manual) Monocytes # (Manual) Eosinophils # (Manual) Basophils # (Manual) PT INR Fibrinogen dRVVT Confirm Interp Factor V Activity POC ABG pH POC ABG pCO2 POC ABG pO2 ABG pO2 ABG HCO3 ABG Base Excess ABG Hemoglobin Oxyhemoglobin Sodium Potassium Chloride Carbon Dioxide BUN 60 H Creatinine 1.9 H Glucose 120 H POC Glucose 114 H Lactic Acid Calcium Phosphorus Magnesium Direct Bilirubin AST ALT Alkaline Phosphatase Lactate Dehydrogenase Troponin T C-Reactive Protein Total Protein Albumin Prealbumin Triglycerides Cholesterol LDL Cholesterol Direct HDL Cholesterol PTH Intact Urine pH Urine WBC (Auto) Urine Creatinine Urine Total Protein Fluid Total Protein Vancomycin Trough Rheumatoid Factor Complement C4 Miscellaneous Test Crossmatch 10/28/16 10/28/16 10/29/16 17:08 23:50 05:10 WBC RBC Hgb Hct MCV MCH MCHC RDW Plt Count Lymph % (Auto) [place] % (Auto) Lymph # [place] # Baso # Seg Neutrophils % Seg Neuts % (Manual) Lymphocytes % (Manual) Monocytes % (Manual) Eosinophils % (Manual) Basophils % (Manual) Nucleated RBC % Seg Neutrophils # Seg Neutrophils # Man Lymphocytes # (Manual) Monocytes # (Manual) Eosinophils # (Manual) Basophils # (Manual) PT INR Fibrinogen dRVVT Confirm Interp Factor V Activity POC ABG pH POC ABG pCO2 POC ABG pO2 ABG pO2 ABG HCO3 ABG Base Excess ABG Hemoglobin Oxyhemoglobin Sodium Potassium Chloride Carbon Dioxide BUN Creatinine Glucose POC Glucose 109 H 110 H 124 H Lactic Acid Calcium Phosphorus Magnesium Direct Bilirubin AST ALT Alkaline Phosphatase Lactate Dehydrogenase Troponin T C-Reactive Protein Total Protein Albumin Prealbumin Triglycerides Cholesterol LDL Cholesterol Direct HDL Cholesterol PTH Intact Urine pH Urine WBC (Auto) Urine Creatinine Urine Total Protein Fluid Total Protein Vancomycin Trough Rheumatoid Factor Complement C4 Miscellaneous Test Crossmatch 10/29/16 10/29/16 10/29/16 07:45 07:45 12:19 WBC 14.7 H RBC 3.15 L Hgb 9.3 L Hct 28.9 L MCV MCH MCHC RDW 17.0 H Plt Count Lymph % (Auto) 11.9 L [place] % (Auto) 8.6 H Lymph # [place] # 1.3 H Baso # Seg Neutrophils % 78.1 H Seg Neuts % (Manual) Lymphocytes % (Manual) Monocytes % (Manual) Eosinophils % (Manual) Basophils % (Manual) Nucleated RBC % Seg Neutrophils # 11.4 H Seg Neutrophils # Man Lymphocytes # (Manual) Monocytes # (Manual) Eosinophils # (Manual) Basophils # (Manual) PT INR Fibrinogen dRVVT Confirm Interp Factor V Activity POC ABG pH POC ABG pCO2 POC ABG pO2 ABG pO2 ABG HCO3 ABG Base Excess ABG Hemoglobin Oxyhemoglobin Sodium Potassium 5.1 H Chloride Carbon Dioxide 19 L BUN 78 H Creatinine 2.2 H Glucose 116 H POC Glucose 118 H Lactic Acid Calcium Phosphorus Magnesium Direct Bilirubin AST ALT Alkaline Phosphatase Lactate Dehydrogenase Troponin T C-Reactive Protein Total Protein Albumin Prealbumin Triglycerides Cholesterol LDL Cholesterol Direct HDL Cholesterol PTH Intact Urine pH Urine WBC (Auto) Urine Creatinine Urine Total Protein Fluid Total Protein Vancomycin Trough Rheumatoid Factor Complement C4 Miscellaneous Test Crossmatch 10/29/16 10/30/16 10/30/16 17:49 01:52 03:28 WBC RBC Hgb Hct MCV MCH MCHC RDW Plt Count Lymph % (Auto) [place] % (Auto) Lymph # [place] # Baso # Seg Neutrophils % Seg Neuts % (Manual) Lymphocytes % (Manual) Monocytes % (Manual) Eosinophils % (Manual) Basophils % (Manual) Nucleated RBC % Seg Neutrophils # Seg Neutrophils # Man Lymphocytes # (Manual) Monocytes # (Manual) Eosinophils # (Manual) Basophils # (Manual) PT INR Fibrinogen dRVVT Confirm Interp Factor V Activity POC ABG pH POC ABG pCO2 POC ABG pO2 ABG pO2 ABG HCO3 ABG Base Excess ABG Hemoglobin Oxyhemoglobin Sodium Potassium 5.4 H Chloride 97.5 L Carbon Dioxide 19 L BUN 90 H Creatinine 2.5 H Glucose POC Glucose 120 H 129 H Lactic Acid Calcium Phosphorus 5.20 H Magnesium Direct Bilirubin AST ALT Alkaline Phosphatase Lactate Dehydrogenase Troponin T C-Reactive Protein Total Protein Albumin Prealbumin Triglycerides Cholesterol LDL Cholesterol Direct HDL Cholesterol PTH Intact Urine pH Urine WBC (Auto) Urine Creatinine Urine Total Protein Fluid Total Protein Vancomycin Trough Rheumatoid Factor Complement C4 Miscellaneous Test Crossmatch 10/30/16 10/30/16 10/30/16 03:28 08:19 08:19 WBC 11.6 H 15.9 H RBC 2.75 L 2.82 L Hgb 7.9 L 8.3 L Hct 24.2 L 25.2 L MCV MCH MCHC RDW 16.7 H 17.2 H Plt Count Lymph % (Auto) [place] % (Auto) 9.8 H Lymph # [place] # 1.1 H Baso # Seg Neutrophils % 74.2 H Seg Neuts % (Manual) Lymphocytes % (Manual) Monocytes % (Manual) Eosinophils % (Manual) Basophils % (Manual) Nucleated RBC % Seg Neutrophils # 8.6 H Seg Neutrophils # Man Lymphocytes # (Manual) Monocytes # (Manual) Eosinophils # (Manual) Basophils # (Manual) PT INR Fibrinogen dRVVT Confirm Interp Factor V Activity POC ABG pH POC ABG pCO2 POC ABG pO2 ABG pO2 ABG HCO3 ABG Base Excess ABG Hemoglobin Oxyhemoglobin Sodium Potassium 5.3 H Chloride 97.4 L Carbon Dioxide 19 L BUN 93 H Creatinine 2.6 H Glucose POC Glucose Lactic Acid Calcium Phosphorus Magnesium Direct Bilirubin AST ALT Alkaline Phosphatase Lactate Dehydrogenase Troponin T C-Reactive Protein Total Protein Albumin Prealbumin Triglycerides Cholesterol LDL Cholesterol Direct HDL Cholesterol PTH Intact Urine pH Urine WBC (Auto) Urine Creatinine Urine Total Protein Fluid Total Protein Vancomycin Trough Rheumatoid Factor Complement C4 Miscellaneous Test Crossmatch 10/30/16 10/30/16 10/31/16 17:11 23:56 00:40 WBC RBC Hgb Hct MCV MCH MCHC RDW Plt Count Lymph % (Auto) [place] % (Auto) Lymph # [place] # Baso # Seg Neutrophils % Seg Neuts % (Manual) Lymphocytes % (Manual) Monocytes % (Manual) Eosinophils % (Manual) Basophils % (Manual) Nucleated RBC % Seg Neutrophils # Seg Neutrophils # Man Lymphocytes # (Manual) Monocytes # (Manual) Eosinophils # (Manual) Basophils # (Manual) PT INR Fibrinogen dRVVT Confirm Interp Factor V Activity POC ABG pH POC ABG pCO2 POC ABG pO2 ABG pO2 ABG HCO3 ABG Base Excess ABG Hemoglobin Oxyhemoglobin Sodium Potassium Chloride Carbon Dioxide BUN Creatinine Glucose POC Glucose 106 H 117 H 120 H Lactic Acid Calcium Phosphorus Magnesium Direct Bilirubin AST ALT Alkaline Phosphatase Lactate Dehydrogenase Troponin T C-Reactive Protein Total Protein Albumin Prealbumin Triglycerides Cholesterol LDL Cholesterol Direct HDL Cholesterol PTH Intact Urine pH Urine WBC (Auto) Urine Creatinine Urine Total Protein Fluid Total Protein Vancomycin Trough Rheumatoid Factor Complement C4 Miscellaneous Test Crossmatch 10/31/16 10/31/16 10/31/16 05:43 07:15 07:15 WBC 12.1 H RBC 2.63 L Hgb 7.7 L Hct 23.3 L MCV MCH MCHC RDW 16.7 H Plt Count Lymph % (Auto) 11.7 L [place] % (Auto) 7.7 H Lymph # [place] # 0.9 H Baso # Seg Neutrophils % 78.0 H Seg Neuts % (Manual) Lymphocytes % (Manual) Monocytes % (Manual) Eosinophils % (Manual) Basophils % (Manual) Nucleated RBC % Seg Neutrophils # 9.4 H Seg Neutrophils # Man Lymphocytes # (Manual) Monocytes # (Manual) Eosinophils # (Manual) Basophils # (Manual) PT INR Fibrinogen dRVVT Confirm Interp Factor V Activity POC ABG pH POC ABG pCO2 POC ABG pO2 ABG pO2 ABG HCO3 ABG Base Excess ABG Hemoglobin Oxyhemoglobin Sodium Potassium Chloride 96.4 L Carbon Dioxide 21 L BUN 99 H Creatinine 2.6 H Glucose 144 H POC Glucose 125 H Lactic Acid Calcium Phosphorus 4.80 H Magnesium Direct Bilirubin AST ALT Alkaline Phosphatase Lactate Dehydrogenase Troponin T C-Reactive Protein Total Protein Albumin Prealbumin Triglycerides Cholesterol LDL Cholesterol Direct HDL Cholesterol PTH Intact Urine pH Urine WBC (Auto) Urine Creatinine Urine Total Protein Fluid Total Protein Vancomycin Trough Rheumatoid Factor Complement C4 Miscellaneous Test Crossmatch 10/31/16 10/31/16 11/01/16 11:46 18:34 00:20 WBC RBC Hgb Hct MCV MCH MCHC RDW Plt Count Lymph % (Auto) [place] % (Auto) Lymph # [place] # Baso # Seg Neutrophils % Seg Neuts % (Manual) Lymphocytes % (Manual) Monocytes % (Manual) Eosinophils % (Manual) Basophils % (Manual) Nucleated RBC % Seg Neutrophils # Seg Neutrophils # Man Lymphocytes # (Manual) Monocytes # (Manual) Eosinophils # (Manual) Basophils # (Manual) PT INR Fibrinogen dRVVT Confirm Interp Factor V Activity POC ABG pH POC ABG pCO2 POC ABG pO2 ABG pO2 ABG HCO3 ABG Base Excess ABG Hemoglobin Oxyhemoglobin Sodium Potassium Chloride Carbon Dioxide BUN Creatinine Glucose POC Glucose 159 H 140 H 132 H Lactic Acid Calcium Phosphorus Magnesium Direct Bilirubin AST ALT Alkaline Phosphatase Lactate Dehydrogenase Troponin T C-Reactive Protein Total Protein Albumin Prealbumin Triglycerides Cholesterol LDL Cholesterol Direct HDL Cholesterol PTH Intact Urine pH Urine WBC (Auto) Urine Creatinine Urine Total Protein Fluid Total Protein Vancomycin Trough Rheumatoid Factor Complement C4 Miscellaneous Test Crossmatch 11/01/16 11/01/16 11/01/16 04:55 04:55 06:11 WBC 11.2 H RBC 2.68 L Hgb 7.5 L Hct 23.7 L MCV MCH MCHC RDW 16.1 H Plt Count Lymph % (Auto) [place] % (Auto) 9.8 H Lymph # [place] # 1.1 H Baso # Seg Neutrophils % 70.8 H Seg Neuts % (Manual) Lymphocytes % (Manual) Monocytes % (Manual) Eosinophils % (Manual) Basophils % (Manual) Nucleated RBC % Seg Neutrophils # 7.9 H Seg Neutrophils # Man Lymphocytes # (Manual) Monocytes # (Manual) Eosinophils # (Manual) Basophils # (Manual) PT INR Fibrinogen dRVVT Confirm Interp Factor V Activity POC ABG pH POC ABG pCO2 POC ABG pO2 ABG pO2 ABG HCO3 ABG Base Excess ABG Hemoglobin Oxyhemoglobin Sodium Potassium 3.3 L D Chloride Carbon Dioxide BUN 61 H Creatinine 1.9 H Glucose 114 H POC Glucose 115 H Lactic Acid Calcium Phosphorus 1.80 L D Magnesium Direct Bilirubin AST ALT Alkaline Phosphatase Lactate Dehydrogenase Troponin T C-Reactive Protein Total Protein Albumin Prealbumin Triglycerides Cholesterol LDL Cholesterol Direct HDL Cholesterol PTH Intact Urine pH Urine WBC (Auto) Urine Creatinine Urine Total Protein Fluid Total Protein Vancomycin Trough Rheumatoid Factor Complement C4 Miscellaneous Test Crossmatch 11/01/16 11/01/16 11/01/16 12:29 18:23 23:58 WBC RBC Hgb Hct MCV MCH MCHC RDW Plt Count Lymph % (Auto) [place] % (Auto) Lymph # [place] # Baso # Seg Neutrophils % Seg Neuts % (Manual) Lymphocytes % (Manual) Monocytes % (Manual) Eosinophils % (Manual) Basophils % (Manual) Nucleated RBC % Seg Neutrophils # Seg Neutrophils # Man Lymphocytes # (Manual) Monocytes # (Manual) Eosinophils # (Manual) Basophils # (Manual) PT INR Fibrinogen dRVVT Confirm Interp Factor V Activity POC ABG pH POC ABG pCO2 POC ABG pO2 ABG pO2 ABG HCO3 ABG Base Excess ABG Hemoglobin Oxyhemoglobin Sodium Potassium Chloride Carbon Dioxide BUN Creatinine Glucose POC Glucose 142 H 143 H 128 H Lactic Acid Calcium Phosphorus Magnesium Direct Bilirubin AST ALT Alkaline Phosphatase Lactate Dehydrogenase Troponin T C-Reactive Protein Total Protein Albumin Prealbumin Triglycerides Cholesterol LDL Cholesterol Direct HDL Cholesterol PTH Intact Urine pH Urine WBC (Auto) Urine Creatinine Urine Total Protein Fluid Total Protein Vancomycin Trough Rheumatoid Factor Complement C4 Miscellaneous Test Crossmatch 11/02/16 11/02/16 11/02/16 04:16 05:29 11:58 WBC RBC Hgb Hct MCV MCH MCHC RDW Plt Count Lymph % (Auto) [place] % (Auto) Lymph # [place] # Baso # Seg Neutrophils % Seg Neuts % (Manual) Lymphocytes % (Manual) Monocytes % (Manual) Eosinophils % (Manual) Basophils % (Manual) Nucleated RBC % Seg Neutrophils # Seg Neutrophils # Man Lymphocytes # (Manual) Monocytes # (Manual) Eosinophils # (Manual) Basophils # (Manual) PT INR Fibrinogen dRVVT Confirm Interp Factor V Activity POC ABG pH POC ABG pCO2 POC ABG pO2 ABG pO2 ABG HCO3 ABG Base Excess ABG Hemoglobin Oxyhemoglobin Sodium Potassium 3.1 L Chloride Carbon Dioxide BUN 73 H Creatinine 2.3 H Glucose 112 H POC Glucose 135 H 149 H Lactic Acid Calcium Phosphorus Magnesium Direct Bilirubin AST ALT Alkaline Phosphatase Lactate Dehydrogenase Troponin T C-Reactive Protein Total Protein Albumin Prealbumin Triglycerides Cholesterol LDL Cholesterol Direct HDL Cholesterol PTH Intact Urine pH Urine WBC (Auto) Urine Creatinine Urine Total Protein Fluid Total Protein Vancomycin Trough Rheumatoid Factor Complement C4 Miscellaneous Test Crossmatch 11/02/16 11/02/16 11/03/16 17:42 22:54 06:00 WBC RBC Hgb Hct MCV MCH MCHC RDW Plt Count Lymph % (Auto) [place] % (Auto) Lymph # [place] # Baso # Seg Neutrophils % Seg Neuts % (Manual) Lymphocytes % (Manual) Monocytes % (Manual) Eosinophils % (Manual) Basophils % (Manual) Nucleated RBC % Seg Neutrophils # Seg Neutrophils # Man Lymphocytes # (Manual) Monocytes # (Manual) Eosinophils # (Manual) Basophils # (Manual) PT INR Fibrinogen dRVVT Confirm Interp Factor V Activity POC ABG pH POC ABG pCO2 POC ABG pO2 ABG pO2 ABG HCO3 ABG Base Excess ABG Hemoglobin Oxyhemoglobin Sodium Potassium Chloride 96.7 L Carbon Dioxide BUN 41 H Creatinine 1.5 H Glucose 145 H POC Glucose 182 H 115 H Lactic Acid Calcium Phosphorus 1.60 L D Magnesium 1.50 L Direct Bilirubin AST ALT Alkaline Phosphatase Lactate Dehydrogenase Troponin T C-Reactive Protein Total Protein Albumin Prealbumin Triglycerides Cholesterol LDL Cholesterol Direct HDL Cholesterol PTH Intact Urine pH Urine WBC (Auto) Urine Creatinine Urine Total Protein Fluid Total Protein Vancomycin Trough Rheumatoid Factor Complement C4 Miscellaneous Test Crossmatch 11/03/16 11/03/16 11/03/16 11:53 17:45 23:37 WBC RBC Hgb Hct MCV MCH MCHC RDW Plt Count Lymph % (Auto) [place] % (Auto) Lymph # [place] # Baso # Seg Neutrophils % Seg Neuts % (Manual) Lymphocytes % (Manual) Monocytes % (Manual) Eosinophils % (Manual) Basophils % (Manual) Nucleated RBC % Seg Neutrophils # Seg Neutrophils # Man Lymphocytes # (Manual) Monocytes # (Manual) Eosinophils # (Manual) Basophils # (Manual) PT INR Fibrinogen dRVVT Confirm Interp Factor V Activity POC ABG pH POC ABG pCO2 POC ABG pO2 ABG pO2 ABG HCO3 ABG Base Excess ABG Hemoglobin Oxyhemoglobin Sodium Potassium Chloride Carbon Dioxide BUN Creatinine Glucose POC Glucose 131 H 134 H 113 H Lactic Acid Calcium Phosphorus Magnesium Direct Bilirubin AST ALT Alkaline Phosphatase Lactate Dehydrogenase Troponin T C-Reactive Protein Total Protein Albumin Prealbumin Triglycerides Cholesterol LDL Cholesterol Direct HDL Cholesterol PTH Intact Urine pH Urine WBC (Auto) Urine Creatinine Urine Total Protein Fluid Total Protein Vancomycin Trough Rheumatoid Factor Complement C4 Miscellaneous Test Crossmatch 11/04/16 11/04/16 11/04/16 05:41 06:00 12:10 WBC RBC Hgb Hct MCV MCH MCHC RDW Plt Count Lymph % (Auto) [place] % (Auto) Lymph # [place] # Baso # Seg Neutrophils % Seg Neuts % (Manual) Lymphocytes % (Manual) Monocytes % (Manual) Eosinophils % (Manual) Basophils % (Manual) Nucleated RBC % Seg Neutrophils # Seg Neutrophils # Man Lymphocytes # (Manual) Monocytes # (Manual) Eosinophils # (Manual) Basophils # (Manual) PT INR Fibrinogen dRVVT Confirm Interp Factor V Activity POC ABG pH POC ABG pCO2 POC ABG pO2 ABG pO2 ABG HCO3 ABG Base Excess ABG Hemoglobin Oxyhemoglobin Sodium Potassium Chloride 96.7 L Carbon Dioxide BUN 52 H Creatinine 1.9 H Glucose 126 H POC Glucose 137 H 191 H Lactic Acid Calcium Phosphorus Magnesium Direct Bilirubin AST ALT Alkaline Phosphatase Lactate Dehydrogenase Troponin T C-Reactive Protein Total Protein Albumin Prealbumin Triglycerides Cholesterol LDL Cholesterol Direct HDL Cholesterol PTH Intact Urine pH Urine WBC (Auto) Urine Creatinine Urine Total Protein Fluid Total Protein Vancomycin Trough Rheumatoid Factor Complement C4 Miscellaneous Test Crossmatch 11/04/16 11/05/16 11/05/16 22:57 03:10 05:10 WBC RBC Hgb Hct MCV MCH MCHC RDW Plt Count Lymph % (Auto) [place] % (Auto) Lymph # [place] # Baso # Seg Neutrophils % Seg Neuts % (Manual) Lymphocytes % (Manual) Monocytes % (Manual) Eosinophils % (Manual) Basophils % (Manual) Nucleated RBC % Seg Neutrophils # Seg Neutrophils # Man Lymphocytes # (Manual) Monocytes # (Manual) Eosinophils # (Manual) Basophils # (Manual) PT INR Fibrinogen dRVVT Confirm Interp Factor V Activity POC ABG pH POC ABG pCO2 POC ABG pO2 ABG pO2 ABG HCO3 ABG Base Excess ABG Hemoglobin Oxyhemoglobin Sodium 136 L Potassium Chloride 97.2 L Carbon Dioxide BUN 32 H Creatinine 1.3 H Glucose 123 H POC Glucose 125 H 108 H Lactic Acid Calcium 7.8 L Phosphorus Magnesium Direct Bilirubin AST ALT Alkaline Phosphatase Lactate Dehydrogenase Troponin T C-Reactive Protein Total Protein Albumin Prealbumin Triglycerides Cholesterol LDL Cholesterol Direct HDL Cholesterol PTH Intact Urine pH Urine WBC (Auto) Urine Creatinine Urine Total Protein Fluid Total Protein Vancomycin Trough Rheumatoid Factor Complement C4 Miscellaneous Test Crossmatch 11/05/16 11/05/16 11/05/16 12:23 13:09 13:25 WBC RBC Hgb Hct MCV MCH MCHC RDW Plt Count Lymph % (Auto) [place] % (Auto) Lymph # [place] # Baso # Seg Neutrophils % Seg Neuts % (Manual) Lymphocytes % (Manual) Monocytes % (Manual) Eosinophils % (Manual) Basophils % (Manual) Nucleated RBC % Seg Neutrophils # Seg Neutrophils # Man Lymphocytes # (Manual) Monocytes # (Manual) Eosinophils # (Manual) Basophils # (Manual) PT INR Fibrinogen dRVVT Confirm Interp Factor V Activity POC ABG pH POC ABG pCO2 POC ABG pO2 ABG pO2 ABG HCO3 ABG Base Excess ABG Hemoglobin Oxyhemoglobin Sodium Potassium Chloride Carbon Dioxide BUN Creatinine Glucose POC Glucose 124 H Lactic Acid Calcium Phosphorus Magnesium Direct Bilirubin AST ALT Alkaline Phosphatase Lactate Dehydrogenase Troponin T C-Reactive Protein 11.40 H Total Protein Albumin Prealbumin Triglycerides Cholesterol LDL Cholesterol Direct HDL Cholesterol PTH Intact Urine pH 9.0 H Urine WBC (Auto) Urine Creatinine Urine Total Protein Fluid Total Protein Vancomycin Trough Rheumatoid Factor Complement C4 Miscellaneous Test Crossmatch 11/05/16 11/05/16 11/05/16 13:25 17:54 23:42 WBC RBC Hgb Hct MCV MCH MCHC RDW Plt Count Lymph % (Auto) [place] % (Auto) Lymph # [place] # Baso # Seg Neutrophils % Seg Neuts % (Manual) Lymphocytes % (Manual) Monocytes % (Manual) Eosinophils % (Manual) Basophils % (Manual) Nucleated RBC % Seg Neutrophils # Seg Neutrophils # Man Lymphocytes # (Manual) Monocytes # (Manual) Eosinophils # (Manual) Basophils # (Manual) PT INR Fibrinogen dRVVT Confirm Interp Factor V Activity POC ABG pH POC ABG pCO2 POC ABG pO2 ABG pO2 ABG HCO3 ABG Base Excess ABG Hemoglobin Oxyhemoglobin Sodium Potassium Chloride Carbon Dioxide BUN Creatinine Glucose POC Glucose 114 H 134 H Lactic Acid Calcium Phosphorus Magnesium Direct Bilirubin AST ALT Alkaline Phosphatase Lactate Dehydrogenase Troponin T C-Reactive Protein Total Protein Albumin Prealbumin Triglycerides Cholesterol LDL Cholesterol Direct HDL Cholesterol PTH Intact Urine pH Urine WBC (Auto) Urine Creatinine Urine Total Protein Fluid Total Protein Vancomycin Trough Rheumatoid Factor Complement C4 Miscellaneous Test Flexitest 1 H Crossmatch 11/06/16 11/06/16 11/06/16 04:56 06:25 06:25 WBC RBC 2.50 L Hgb 7.3 L Hct 22.5 L MCV MCH MCHC RDW 16.9 H Plt Count Lymph % (Auto) [place] % (Auto) 10.5 H Lymph # [place] # 1.1 H Baso # Seg Neutrophils % Seg Neuts % (Manual) Lymphocytes % (Manual) Monocytes % (Manual) Eosinophils % (Manual) Basophils % (Manual) Nucleated RBC % Seg Neutrophils # Seg Neutrophils # Man Lymphocytes # (Manual) Monocytes # (Manual) Eosinophils # (Manual) Basophils # (Manual) PT INR Fibrinogen dRVVT Confirm Interp Factor V Activity POC ABG pH POC ABG pCO2 POC ABG pO2 ABG pO2 ABG HCO3 ABG Base Excess ABG Hemoglobin Oxyhemoglobin Sodium Potassium 5.1 H Chloride 95.9 L Carbon Dioxide BUN 52 H Creatinine 1.8 H Glucose 117 H POC Glucose 120 H Lactic Acid Calcium Phosphorus Magnesium Direct Bilirubin AST 103 H ALT 77 H Alkaline Phosphatase 285 H Lactate Dehydrogenase Troponin T C-Reactive Protein Total Protein 6.2 L Albumin 1.8 L Prealbumin 0.180 L Triglycerides Cholesterol LDL Cholesterol Direct HDL Cholesterol PTH Intact Urine pH Urine WBC (Auto) Urine Creatinine Urine Total Protein Fluid Total Protein Vancomycin Trough Rheumatoid Factor Complement C4 Miscellaneous Test Crossmatch 11/06/16 11/06/16 11/06/16 11:56 17:14 23:52 WBC RBC Hgb Hct MCV MCH MCHC RDW Plt Count Lymph % (Auto) [place] % (Auto) Lymph # [place] # Baso # Seg Neutrophils % Seg Neuts % (Manual) Lymphocytes % (Manual) Monocytes % (Manual) Eosinophils % (Manual) Basophils % (Manual) Nucleated RBC % Seg Neutrophils # Seg Neutrophils # Man Lymphocytes # (Manual) Monocytes # (Manual) Eosinophils # (Manual) Basophils # (Manual) PT INR Fibrinogen dRVVT Confirm Interp Factor V Activity POC ABG pH POC ABG pCO2 POC ABG pO2 ABG pO2 ABG HCO3 ABG Base Excess ABG Hemoglobin Oxyhemoglobin Sodium Potassium Chloride Carbon Dioxide BUN Creatinine Glucose POC Glucose 141 H 125 H 130 H Lactic Acid Calcium Phosphorus Magnesium Direct Bilirubin AST ALT Alkaline Phosphatase Lactate Dehydrogenase Troponin T C-Reactive Protein Total Protein Albumin Prealbumin Triglycerides Cholesterol LDL Cholesterol Direct HDL Cholesterol PTH Intact Urine pH Urine WBC (Auto) Urine Creatinine Urine Total Protein Fluid Total Protein Vancomycin Trough Rheumatoid Factor Complement C4 Miscellaneous Test Crossmatch 11/07/16 11/07/16 11/07/16 06:30 06:30 09:37 WBC RBC 2.18 L Hgb 6.3 L Hct 19.7 L* MCV MCH MCHC RDW 16.8 H Plt Count Lymph % (Auto) [place] % (Auto) 10.0 H Lymph # [place] # 1.0 H Baso # Seg Neutrophils % Seg Neuts % (Manual) Lymphocytes % (Manual) Monocytes % (Manual) Eosinophils % (Manual) Basophils % (Manual) Nucleated RBC % Seg Neutrophils # Seg Neutrophils # Man Lymphocytes # (Manual) Monocytes # (Manual) Eosinophils # (Manual) Basophils # (Manual) PT INR Fibrinogen dRVVT Confirm Interp Factor V Activity POC ABG pH POC ABG pCO2 POC ABG pO2 ABG pO2 ABG HCO3 ABG Base Excess ABG Hemoglobin Oxyhemoglobin Sodium 135 L Potassium Chloride 95.6 L Carbon Dioxide BUN 70 H Creatinine 2.0 H Glucose 126 H POC Glucose Lactic Acid Calcium Phosphorus Magnesium Direct Bilirubin AST ALT Alkaline Phosphatase Lactate Dehydrogenase Troponin T C-Reactive Protein Total Protein Albumin Prealbumin Triglycerides Cholesterol LDL Cholesterol Direct HDL Cholesterol PTH Intact Urine pH Urine WBC (Auto) Urine Creatinine Urine Total Protein Fluid Total Protein Vancomycin Trough Rheumatoid Factor Complement C4 Miscellaneous Test Crossmatch See Detail 11/07/16 11/07/16 11/07/16 12:52 18:51 21:26 WBC RBC Hgb Hct MCV MCH MCHC RDW Plt Count Lymph % (Auto) [place] % (Auto) Lymph # [place] # Baso # Seg Neutrophils % Seg Neuts % (Manual) Lymphocytes % (Manual) Monocytes % (Manual) Eosinophils % (Manual) Basophils % (Manual) Nucleated RBC % Seg Neutrophils # Seg Neutrophils # Man Lymphocytes # (Manual) Monocytes # (Manual) Eosinophils # (Manual) Basophils # (Manual) PT INR Fibrinogen dRVVT Confirm Interp Factor V Activity POC ABG pH 7.523 H POC ABG pCO2 34.6 L POC ABG pO2 53 L ABG pO2 ABG HCO3 ABG Base Excess ABG Hemoglobin Oxyhemoglobin Sodium Potassium Chloride Carbon Dioxide BUN Creatinine Glucose POC Glucose 142 H 155 H Lactic Acid Calcium Phosphorus Magnesium Direct Bilirubin AST ALT Alkaline Phosphatase Lactate Dehydrogenase Troponin T C-Reactive Protein Total Protein Albumin Prealbumin Triglycerides Cholesterol LDL Cholesterol Direct HDL Cholesterol PTH Intact Urine pH Urine WBC (Auto) Urine Creatinine Urine Total Protein Fluid Total Protein Vancomycin Trough Rheumatoid Factor Complement C4 Miscellaneous Test Crossmatch 11/07/16 11/08/16 11/08/16 21:34 13:03 23:37 WBC RBC 2.63 L Hgb 7.7 L Hct 22.7 L MCV MCH MCHC RDW 17.0 H Plt Count Lymph % (Auto) [place] % (Auto) Lymph # [place] # Baso # Seg Neutrophils % Seg Neuts % (Manual) Lymphocytes % (Manual) Monocytes % (Manual) Eosinophils % (Manual) Basophils % (Manual) Nucleated RBC % Seg Neutrophils # Seg Neutrophils # Man Lymphocytes # (Manual) Monocytes # (Manual) Eosinophils # (Manual) Basophils # (Manual) PT INR Fibrinogen dRVVT Confirm Interp Factor V Activity POC ABG pH 7.478 H POC ABG pCO2 34.0 L POC ABG pO2 50 L ABG pO2 ABG HCO3 ABG Base Excess ABG Hemoglobin Oxyhemoglobin Sodium Potassium Chloride Carbon Dioxide BUN Creatinine Glucose POC Glucose 113 H Lactic Acid Calcium Phosphorus Magnesium Direct Bilirubin AST ALT Alkaline Phosphatase Lactate Dehydrogenase Troponin T C-Reactive Protein Total Protein Albumin Prealbumin Triglycerides Cholesterol LDL Cholesterol Direct HDL Cholesterol PTH Intact Urine pH Urine WBC (Auto) Urine Creatinine Urine Total Protein Fluid Total Protein Vancomycin Trough Rheumatoid Factor Complement C4 Miscellaneous Test Crossmatch 11/09/16 11/09/16 11/09/16 04:35 10:15 18:21 WBC RBC 2.68 L Hgb 7.8 L Hct 23.3 L MCV MCH MCHC RDW 17.0 H Plt Count Lymph % (Auto) [place] % (Auto) 12.1 H Lymph # [place] # 1.1 H Baso # Seg Neutrophils % Seg Neuts % (Manual) Lymphocytes % (Manual) Monocytes % (Manual) Eosinophils % (Manual) Basophils % (Manual) Nucleated RBC % Seg Neutrophils # Seg Neutrophils # Man Lymphocytes # (Manual) Monocytes # (Manual) Eosinophils # (Manual) Basophils # (Manual) PT INR Fibrinogen dRVVT Confirm Interp Factor V Activity POC ABG pH POC ABG pCO2 POC ABG pO2 ABG pO2 ABG HCO3 ABG Base Excess ABG Hemoglobin Oxyhemoglobin Sodium Potassium Chloride Carbon Dioxide BUN 51 H Creatinine 1.8 H Glucose POC Glucose 60 L Lactic Acid Calcium 8.3 L Phosphorus Magnesium Direct Bilirubin AST ALT Alkaline Phosphatase Lactate Dehydrogenase Troponin T C-Reactive Protein Total Protein Albumin Prealbumin Triglycerides Cholesterol LDL Cholesterol Direct HDL Cholesterol PTH Intact Urine pH Urine WBC (Auto) Urine Creatinine Urine Total Protein Fluid Total Protein Vancomycin Trough Rheumatoid Factor Complement C4 Miscellaneous Test Crossmatch 11/09/16 11/10/16 11/10/16 18:55 07:00 11:51 WBC RBC Hgb Hct MCV MCH MCHC RDW Plt Count Lymph % (Auto) [place] % (Auto) Lymph # [place] # Baso # Seg Neutrophils % Seg Neuts % (Manual) Lymphocytes % (Manual) Monocytes % (Manual) Eosinophils % (Manual) Basophils % (Manual) Nucleated RBC % Seg Neutrophils # Seg Neutrophils # Man Lymphocytes # (Manual) Monocytes # (Manual) Eosinophils # (Manual) Basophils # (Manual) PT INR Fibrinogen dRVVT Confirm Interp Factor V Activity POC ABG pH POC ABG pCO2 POC ABG pO2 ABG pO2 ABG HCO3 ABG Base Excess ABG Hemoglobin Oxyhemoglobin Sodium Potassium 3.0 L D Chloride 97.4 L Carbon Dioxide BUN 28 H Creatinine 1.3 H Glucose POC Glucose 68 L 120 H Lactic Acid Calcium 7.8 L Phosphorus Magnesium Direct Bilirubin AST ALT Alkaline Phosphatase Lactate Dehydrogenase Troponin T C-Reactive Protein Total Protein Albumin Prealbumin Triglycerides Cholesterol LDL Cholesterol Direct HDL Cholesterol PTH Intact Urine pH Urine WBC (Auto) Urine Creatinine Urine Total Protein Fluid Total Protein Vancomycin Trough Rheumatoid Factor Complement C4 Miscellaneous Test Crossmatch 11/10/16 11/11/16 11/11/16 14:20 06:59 06:59 WBC RBC 2.81 L Hgb 8.1 L Hct 24.4 L MCV MCH MCHC RDW 16.4 H Plt Count Lymph % (Auto) [place] % (Auto) 10.8 H Lymph # [place] # 1.0 H Baso # Seg Neutrophils % Seg Neuts % (Manual) Lymphocytes % (Manual) Monocytes % (Manual) Eosinophils % (Manual) Basophils % (Manual) Nucleated RBC % Seg Neutrophils # Seg Neutrophils # Man Lymphocytes # (Manual) Monocytes # (Manual) Eosinophils # (Manual) Basophils # (Manual) PT INR Fibrinogen dRVVT Confirm Interp Factor V Activity POC ABG pH POC ABG pCO2 POC ABG pO2 ABG pO2 ABG HCO3 ABG Base Excess ABG Hemoglobin Oxyhemoglobin Sodium Potassium Chloride Carbon Dioxide BUN Creatinine Glucose POC Glucose Lactic Acid Calcium Phosphorus Magnesium Direct Bilirubin AST ALT Alkaline Phosphatase Lactate Dehydrogenase 196 H Troponin T C-Reactive Protein Total Protein 6.1 L Albumin Prealbumin Triglycerides Cholesterol LDL Cholesterol Direct HDL Cholesterol PTH Intact Urine pH Urine WBC (Auto) Urine Creatinine Urine Total Protein Fluid Total Protein < 3.0 L Vancomycin Trough Rheumatoid Factor Complement C4 Miscellaneous Test Crossmatch 11/11/16 11/11/16 11/12/16 06:59 09:50 04:00 WBC RBC Hgb Hct MCV MCH MCHC RDW Plt Count Lymph % (Auto) [place] % (Auto) Lymph # [place] # Baso # Seg Neutrophils % Seg Neuts % (Manual) Lymphocytes % (Manual) Monocytes % (Manual) Eosinophils % (Manual) Basophils % (Manual) Nucleated RBC % Seg Neutrophils # Seg Neutrophils # Man Lymphocytes # (Manual) Monocytes # (Manual) Eosinophils # (Manual) Basophils # (Manual) PT INR 1.18 H Fibrinogen dRVVT Confirm Interp Factor V Activity POC ABG pH POC ABG pCO2 POC ABG pO2 ABG pO2 ABG HCO3 ABG Base Excess ABG Hemoglobin Oxyhemoglobin Sodium 136 L 133 L Potassium Chloride 96.1 L 94.8 L Carbon Dioxide 21 L BUN 37 H 42 H Creatinine 1.8 H 2.0 H Glucose POC Glucose Lactic Acid Calcium Phosphorus Magnesium Direct Bilirubin AST ALT Alkaline Phosphatase Lactate Dehydrogenase Troponin T C-Reactive Protein Total Protein Albumin Prealbumin Triglycerides Cholesterol LDL Cholesterol Direct HDL Cholesterol PTH Intact Urine pH Urine WBC (Auto) Urine Creatinine Urine Total Protein Fluid Total Protein Vancomycin Trough Rheumatoid Factor Complement C4 Miscellaneous Test Crossmatch 11/12/16 11/12/16 11/13/16 04:00 23:55 05:53 WBC RBC Hgb 8.9 L Hct 27.2 L MCV MCH MCHC RDW Plt Count Lymph % (Auto) [place] % (Auto) Lymph # [place] # Baso # Seg Neutrophils % Seg Neuts % (Manual) Lymphocytes % (Manual) Monocytes % (Manual) Eosinophils % (Manual) Basophils % (Manual) Nucleated RBC % Seg Neutrophils # Seg Neutrophils # Man Lymphocytes # (Manual) Monocytes # (Manual) Eosinophils # (Manual) Basophils # (Manual) PT INR Fibrinogen dRVVT Confirm Interp Factor V Activity POC ABG pH POC ABG pCO2 POC ABG pO2 ABG pO2 ABG HCO3 ABG Base Excess ABG Hemoglobin Oxyhemoglobin Sodium Potassium Chloride Carbon Dioxide BUN Creatinine Glucose POC Glucose 132 H 120 H Lactic Acid Calcium Phosphorus Magnesium Direct Bilirubin AST ALT Alkaline Phosphatase Lactate Dehydrogenase Troponin T C-Reactive Protein Total Protein Albumin Prealbumin Triglycerides Cholesterol LDL Cholesterol Direct HDL Cholesterol PTH Intact Urine pH Urine WBC (Auto) Urine Creatinine Urine Total Protein Fluid Total Protein Vancomycin Trough Rheumatoid Factor Complement C4 Miscellaneous Test Crossmatch 11/13/16 11/13/16 11/13/16 11:43 17:09 23:41 WBC RBC Hgb Hct MCV MCH MCHC RDW Plt Count Lymph % (Auto) [place] % (Auto) Lymph # [place] # Baso # Seg Neutrophils % Seg Neuts % (Manual) Lymphocytes % (Manual) Monocytes % (Manual) Eosinophils % (Manual) Basophils % (Manual) Nucleated RBC % Seg Neutrophils # Seg Neutrophils # Man Lymphocytes # (Manual) Monocytes # (Manual) Eosinophils # (Manual) Basophils # (Manual) PT INR Fibrinogen dRVVT Confirm Interp Factor V Activity POC ABG pH POC ABG pCO2 POC ABG pO2 ABG pO2 ABG HCO3 ABG Base Excess ABG Hemoglobin Oxyhemoglobin Sodium Potassium Chloride Carbon Dioxide BUN Creatinine Glucose POC Glucose 114 H 113 H 108 H Lactic Acid Calcium Phosphorus Magnesium Direct Bilirubin AST ALT Alkaline Phosphatase Lactate Dehydrogenase Troponin T C-Reactive Protein Total Protein Albumin Prealbumin Triglycerides Cholesterol LDL Cholesterol Direct HDL Cholesterol PTH Intact Urine pH Urine WBC (Auto) Urine Creatinine Urine Total Protein Fluid Total Protein Vancomycin Trough Rheumatoid Factor Complement C4 Miscellaneous Test Crossmatch 11/13/16 11/15/16 11/15/16 Unknown 00:37 03:30 WBC 11.2 H RBC 2.72 L Hgb 7.6 L Hct 23.4 L MCV MCH MCHC RDW 16.5 H Plt Count Lymph % (Auto) [place] % (Auto) Lymph # [place] # Baso # Seg Neutrophils % Seg Neuts % (Manual) Lymphocytes % (Manual) Monocytes % (Manual) Eosinophils % (Manual) Basophils % (Manual) Nucleated RBC % Seg Neutrophils # Seg Neutrophils # Man Lymphocytes # (Manual) Monocytes # (Manual) Eosinophils # (Manual) Basophils # (Manual) PT INR Fibrinogen dRVVT Confirm Interp Factor V Activity POC ABG pH POC ABG pCO2 POC ABG pO2 ABG pO2 ABG HCO3 ABG Base Excess ABG Hemoglobin Oxyhemoglobin Sodium 135 L Potassium Chloride 95.2 L Carbon Dioxide BUN 52 H Creatinine 2.2 H Glucose POC Glucose 108 H Lactic Acid Calcium Phosphorus Magnesium Direct Bilirubin AST ALT Alkaline Phosphatase Lactate Dehydrogenase Troponin T C-Reactive Protein Total Protein Albumin Prealbumin Triglycerides Cholesterol LDL Cholesterol Direct HDL Cholesterol PTH Intact Urine pH Urine WBC (Auto) Urine Creatinine Urine Total Protein Fluid Total Protein Vancomycin Trough Rheumatoid Factor Complement C4 Miscellaneous Test Crossmatch 11/15/16 11/15/16 11/15/16 03:30 05:04 11:50 WBC RBC Hgb Hct MCV MCH MCHC RDW Plt Count Lymph % (Auto) [place] % (Auto) Lymph # [place] # Baso # Seg Neutrophils % Seg Neuts % (Manual) Lymphocytes % (Manual) Monocytes % (Manual) Eosinophils % (Manual) Basophils % (Manual) Nucleated RBC % Seg Neutrophils # Seg Neutrophils # Man Lymphocytes # (Manual) Monocytes # (Manual) Eosinophils # (Manual) Basophils # (Manual) PT INR Fibrinogen dRVVT Confirm Interp Factor V Activity POC ABG pH POC ABG pCO2 POC ABG pO2 ABG pO2 ABG HCO3 ABG Base Excess ABG Hemoglobin Oxyhemoglobin Sodium Potassium 3.4 L Chloride Carbon Dioxide BUN 25 H Creatinine 1.5 H Glucose 103 H POC Glucose 121 H 144 H Lactic Acid Calcium Phosphorus Magnesium Direct Bilirubin AST ALT Alkaline Phosphatase Lactate Dehydrogenase Troponin T C-Reactive Protein Total Protein Albumin Prealbumin Triglycerides Cholesterol LDL Cholesterol Direct HDL Cholesterol PTH Intact Urine pH Urine WBC (Auto) Urine Creatinine Urine Total Protein Fluid Total Protein Vancomycin Trough Rheumatoid Factor Complement C4 Miscellaneous Test Crossmatch 11/15/16 11/15/16 11/16/16 21:28 23:20 11:44 WBC RBC Hgb Hct MCV MCH MCHC RDW Plt Count Lymph % (Auto) [place] % (Auto) Lymph # [place] # Baso # Seg Neutrophils % Seg Neuts % (Manual) Lymphocytes % (Manual) Monocytes % (Manual) Eosinophils % (Manual) Basophils % (Manual) Nucleated RBC % Seg Neutrophils # Seg Neutrophils # Man Lymphocytes # (Manual) Monocytes # (Manual) Eosinophils # (Manual) Basophils # (Manual) PT INR Fibrinogen dRVVT Confirm Interp Factor V Activity POC ABG pH 7.462 H POC ABG pCO2 POC ABG pO2 71 L ABG pO2 ABG HCO3 ABG Base Excess ABG Hemoglobin Oxyhemoglobin Sodium Potassium Chloride Carbon Dioxide BUN Creatinine Glucose POC Glucose 116 H 133 H Lactic Acid Calcium Phosphorus Magnesium Direct Bilirubin AST ALT Alkaline Phosphatase Lactate Dehydrogenase Troponin T C-Reactive Protein Total Protein Albumin Prealbumin Triglycerides Cholesterol LDL Cholesterol Direct HDL Cholesterol PTH Intact Urine pH Urine WBC (Auto) Urine Creatinine Urine Total Protein Fluid Total Protein Vancomycin Trough Rheumatoid Factor Complement C4 Miscellaneous Test Crossmatch 11/16/16 11/16/16 11/16/16 12:20 17:05 23:35 WBC 11.7 H RBC 2.73 L Hgb 7.6 L Hct 23.7 L MCV MCH MCHC RDW 16.6 H Plt Count Lymph % (Auto) [place] % (Auto) Lymph # [place] # Baso # Seg Neutrophils % Seg Neuts % (Manual) Lymphocytes % (Manual) Monocytes % (Manual) Eosinophils % (Manual) Basophils % (Manual) Nucleated RBC % Seg Neutrophils # Seg Neutrophils # Man Lymphocytes # (Manual) Monocytes # (Manual) Eosinophils # (Manual) Basophils # (Manual) PT INR Fibrinogen dRVVT Confirm Interp Factor V Activity POC ABG pH POC ABG pCO2 POC ABG pO2 ABG pO2 ABG HCO3 ABG Base Excess ABG Hemoglobin Oxyhemoglobin Sodium Potassium Chloride Carbon Dioxide BUN Creatinine Glucose POC Glucose 154 H 125 H Lactic Acid Calcium Phosphorus Magnesium Direct Bilirubin AST ALT Alkaline Phosphatase Lactate Dehydrogenase Troponin T C-Reactive Protein Total Protein Albumin Prealbumin Triglycerides Cholesterol LDL Cholesterol Direct HDL Cholesterol PTH Intact Urine pH Urine WBC (Auto) Urine Creatinine Urine Total Protein Fluid Total Protein Vancomycin Trough Rheumatoid Factor Complement C4 Miscellaneous Test Crossmatch 11/17/16 11/17/16 11/17/16 03:20 03:20 03:20 WBC RBC 2.55 L Hgb 7.3 L Hct 21.9 L MCV MCH MCHC RDW 16.6 H Plt Count Lymph % (Auto) [place] % (Auto) 11.5 H Lymph # [place] # 1.1 H Baso # Seg Neutrophils % Seg Neuts % (Manual) Lymphocytes % (Manual) Monocytes % (Manual) Eosinophils % (Manual) Basophils % (Manual) Nucleated RBC % Seg Neutrophils # Seg Neutrophils # Man Lymphocytes # (Manual) Monocytes # (Manual) Eosinophils # (Manual) Basophils # (Manual) PT 16.8 H INR 1.37 H Fibrinogen dRVVT Confirm Interp Factor V Activity POC ABG pH POC ABG pCO2 POC ABG pO2 ABG pO2 ABG HCO3 ABG Base Excess ABG Hemoglobin Oxyhemoglobin Sodium Potassium 3.5 L Chloride Carbon Dioxide BUN 21 H Creatinine Glucose POC Glucose Lactic Acid Calcium 7.9 L Phosphorus Magnesium Direct Bilirubin AST ALT Alkaline Phosphatase Lactate Dehydrogenase Troponin T C-Reactive Protein Total Protein Albumin Prealbumin Triglycerides Cholesterol LDL Cholesterol Direct HDL Cholesterol PTH Intact Urine pH Urine WBC (Auto) Urine Creatinine Urine Total Protein Fluid Total Protein Vancomycin Trough Rheumatoid Factor Complement C4 Miscellaneous Test Crossmatch 11/17/16 11/17/16 11/17/16 06:34 11:21 21:22 WBC RBC Hgb Hct MCV MCH MCHC RDW Plt Count Lymph % (Auto) [place] % (Auto) Lymph # [place] # Baso # Seg Neutrophils % Seg Neuts % (Manual) Lymphocytes % (Manual) Monocytes % (Manual) Eosinophils % (Manual) Basophils % (Manual) Nucleated RBC % Seg Neutrophils # Seg Neutrophils # Man Lymphocytes # (Manual) Monocytes # (Manual) Eosinophils # (Manual) Basophils # (Manual) PT INR Fibrinogen dRVVT Confirm Interp Factor V Activity POC ABG pH 7.467 H POC ABG pCO2 POC ABG pO2 73 L ABG pO2 ABG HCO3 ABG Base Excess ABG Hemoglobin Oxyhemoglobin Sodium Potassium Chloride Carbon Dioxide BUN Creatinine Glucose POC Glucose 121 H 119 H Lactic Acid Calcium Phosphorus Magnesium Direct Bilirubin AST ALT Alkaline Phosphatase Lactate Dehydrogenase Troponin T C-Reactive Protein Total Protein Albumin Prealbumin Triglycerides Cholesterol LDL Cholesterol Direct HDL Cholesterol PTH Intact Urine pH Urine WBC (Auto) Urine Creatinine Urine Total Protein Fluid Total Protein Vancomycin Trough Rheumatoid Factor Complement C4 Miscellaneous Test Crossmatch 11/18/16 11/18/16 11/19/16 12:16 17:19 00:00 WBC RBC Hgb Hct MCV MCH MCHC RDW Plt Count Lymph % (Auto) [place] % (Auto) Lymph # [place] # Baso # Seg Neutrophils % Seg Neuts % (Manual) Lymphocytes % (Manual) Monocytes % (Manual) Eosinophils % (Manual) Basophils % (Manual) Nucleated RBC % Seg Neutrophils # Seg Neutrophils # Man Lymphocytes # (Manual) Monocytes # (Manual) Eosinophils # (Manual) Basophils # (Manual) PT INR Fibrinogen dRVVT Confirm Interp Factor V Activity POC ABG pH POC ABG pCO2 POC ABG pO2 ABG pO2 ABG HCO3 ABG Base Excess ABG Hemoglobin Oxyhemoglobin Sodium Potassium Chloride Carbon Dioxide BUN Creatinine Glucose POC Glucose 124 H 162 H 139 H Lactic Acid Calcium Phosphorus Magnesium Direct Bilirubin AST ALT Alkaline Phosphatase Lactate Dehydrogenase Troponin T C-Reactive Protein Total Protein Albumin Prealbumin Triglycerides Cholesterol LDL Cholesterol Direct HDL Cholesterol PTH Intact Urine pH Urine WBC (Auto) Urine Creatinine Urine Total Protein Fluid Total Protein Vancomycin Trough Rheumatoid Factor Complement C4 Miscellaneous Test Crossmatch 11/19/16 11/19/16 11/20/16 05:00 12:43 00:40 WBC RBC Hgb Hct MCV MCH MCHC RDW Plt Count Lymph % (Auto) [place] % (Auto) Lymph # [place] # Baso # Seg Neutrophils % Seg Neuts % (Manual) Lymphocytes % (Manual) Monocytes % (Manual) Eosinophils % (Manual) Basophils % (Manual) Nucleated RBC % Seg Neutrophils # Seg Neutrophils # Man Lymphocytes # (Manual) Monocytes # (Manual) Eosinophils # (Manual) Basophils # (Manual) PT INR Fibrinogen dRVVT Confirm Interp Factor V Activity POC ABG pH POC ABG pCO2 POC ABG pO2 ABG pO2 ABG HCO3 ABG Base Excess ABG Hemoglobin Oxyhemoglobin Sodium Potassium Chloride Carbon Dioxide BUN Creatinine Glucose POC Glucose 110 H 125 H 136 H Lactic Acid Calcium Phosphorus Magnesium Direct Bilirubin AST ALT Alkaline Phosphatase Lactate Dehydrogenase Troponin T C-Reactive Protein Total Protein Albumin Prealbumin Triglycerides Cholesterol LDL Cholesterol Direct HDL Cholesterol PTH Intact Urine pH Urine WBC (Auto) Urine Creatinine Urine Total Protein Fluid Total Protein Vancomycin Trough Rheumatoid Factor Complement C4 Miscellaneous Test Crossmatch 11/20/16 11/20/16 11/20/16 05:00 05:00 05:51 WBC 13.1 H RBC 2.74 L Hgb 7.7 L Hct 23.6 L MCV MCH MCHC RDW 16.9 H Plt Count Lymph % (Auto) [place] % (Auto) 10.8 H Lymph # [place] # 1.4 H Baso # Seg Neutrophils % Seg Neuts % (Manual) Lymphocytes % (Manual) Monocytes % (Manual) Eosinophils % (Manual) Basophils % (Manual) Nucleated RBC % Seg Neutrophils # 7.9 H Seg Neutrophils # Man Lymphocytes # (Manual) Monocytes # (Manual) Eosinophils # (Manual) Basophils # (Manual) PT INR Fibrinogen dRVVT Confirm Interp Factor V Activity POC ABG pH POC ABG pCO2 POC ABG pO2 ABG pO2 ABG HCO3 ABG Base Excess ABG Hemoglobin Oxyhemoglobin Sodium Potassium Chloride Carbon Dioxide BUN 31 H Creatinine 1.8 H Glucose 129 H POC Glucose 133 H Lactic Acid Calcium Phosphorus Magnesium Direct Bilirubin AST ALT Alkaline Phosphatase Lactate Dehydrogenase Troponin T C-Reactive Protein Total Protein Albumin Prealbumin Triglycerides Cholesterol LDL Cholesterol Direct HDL Cholesterol PTH Intact Urine pH Urine WBC (Auto) Urine Creatinine Urine Total Protein Fluid Total Protein Vancomycin Trough Rheumatoid Factor Complement C4 Miscellaneous Test Crossmatch 11/20/16 11/20/16 11/21/16 12:40 18:10 01:20 WBC RBC Hgb Hct MCV MCH MCHC RDW Plt Count Lymph % (Auto) [place] % (Auto) Lymph # [place] # Baso # Seg Neutrophils % Seg Neuts % (Manual) Lymphocytes % (Manual) Monocytes % (Manual) Eosinophils % (Manual) Basophils % (Manual) Nucleated RBC % Seg Neutrophils # Seg Neutrophils # Man Lymphocytes # (Manual) Monocytes # (Manual) Eosinophils # (Manual) Basophils # (Manual) PT INR Fibrinogen dRVVT Confirm Interp Factor V Activity POC ABG pH POC ABG pCO2 POC ABG pO2 ABG pO2 ABG HCO3 ABG Base Excess ABG Hemoglobin Oxyhemoglobin Sodium Potassium Chloride Carbon Dioxide BUN Creatinine Glucose POC Glucose 134 H 138 H 136 H Lactic Acid Calcium Phosphorus Magnesium Direct Bilirubin AST ALT Alkaline Phosphatase Lactate Dehydrogenase Troponin T C-Reactive Protein Total Protein Albumin Prealbumin Triglycerides Cholesterol LDL Cholesterol Direct HDL Cholesterol PTH Intact Urine pH Urine WBC (Auto) Urine Creatinine Urine Total Protein Fluid Total Protein Vancomycin Trough Rheumatoid Factor Complement C4 Miscellaneous Test Crossmatch 11/21/16 11/21/16 11/21/16 07:04 07:45 07:45 WBC 22.0 H RBC 2.91 L Hgb 8.2 L Hct 25.4 L MCV MCH MCHC RDW 17.1 H Plt Count Lymph % (Auto) [place] % (Auto) Lymph # [place] # Baso # Seg Neutrophils % Seg Neuts % (Manual) Lymphocytes % (Manual) 8.0 L Monocytes % (Manual) Eosinophils % (Manual) Basophils % (Manual) Nucleated RBC % Seg Neutrophils # Seg Neutrophils # Man 14.7 H Lymphocytes # (Manual) Monocytes # (Manual) 1.1 H Eosinophils # (Manual) Basophils # (Manual) PT INR Fibrinogen dRVVT Confirm Interp Factor V Activity POC ABG pH POC ABG pCO2 POC ABG pO2 ABG pO2 ABG HCO3 ABG Base Excess ABG Hemoglobin Oxyhemoglobin Sodium Potassium Chloride Carbon Dioxide BUN 42 H Creatinine 2.0 H Glucose POC Glucose 108 H Lactic Acid Calcium Phosphorus Magnesium Direct Bilirubin AST ALT Alkaline Phosphatase Lactate Dehydrogenase Troponin T C-Reactive Protein Total Protein Albumin Prealbumin Triglycerides Cholesterol LDL Cholesterol Direct HDL Cholesterol PTH Intact Urine pH Urine WBC (Auto) Urine Creatinine Urine Total Protein Fluid Total Protein Vancomycin Trough Rheumatoid Factor Complement C4 Miscellaneous Test Crossmatch 11/21/16 11/21/16 11/21/16 08:38 10:09 11:20 WBC RBC Hgb Hct MCV MCH MCHC RDW Plt Count Lymph % (Auto) [place] % (Auto) Lymph # [place] # Baso # Seg Neutrophils % Seg Neuts % (Manual) Lymphocytes % (Manual) Monocytes % (Manual) Eosinophils % (Manual) Basophils % (Manual) Nucleated RBC % Seg Neutrophils # Seg Neutrophils # Man Lymphocytes # (Manual) Monocytes # (Manual) Eosinophils # (Manual) Basophils # (Manual) PT INR Fibrinogen dRVVT Confirm Interp Factor V Activity POC ABG pH 7.346 L POC ABG pCO2 34.4 L POC ABG pO2 314 H ABG pO2 ABG HCO3 ABG Base Excess ABG Hemoglobin Oxyhemoglobin Sodium Potassium Chloride Carbon Dioxide BUN Creatinine Glucose POC Glucose 195 H 153 H Lactic Acid Calcium Phosphorus Magnesium Direct Bilirubin AST ALT Alkaline Phosphatase Lactate Dehydrogenase Troponin T C-Reactive Protein Total Protein Albumin Prealbumin Triglycerides Cholesterol LDL Cholesterol Direct HDL Cholesterol PTH Intact Urine pH Urine WBC (Auto) Urine Creatinine Urine Total Protein Fluid Total Protein Vancomycin Trough Rheumatoid Factor Complement C4 Miscellaneous Test Crossmatch 11/21/16 11/22/16 11/22/16 23:37 04:48 05:00 WBC 29.7 H RBC 2.73 L Hgb 7.5 L Hct 24.2 L MCV MCH 27 L MCHC RDW 17.4 H Plt Count Lymph % (Auto) [place] % (Auto) Lymph # [place] # Baso # Seg Neutrophils % Seg Neuts % (Manual) Lymphocytes % (Manual) 7.0 L Monocytes % (Manual) Eosinophils % (Manual) Basophils % (Manual) Nucleated RBC % Seg Neutrophils # Seg Neutrophils # Man 15.4 H Lymphocytes # (Manual) Monocytes # (Manual) Eosinophils # (Manual) Basophils # (Manual) PT INR Fibrinogen dRVVT Confirm Interp Factor V Activity POC ABG pH POC ABG pCO2 24.6 L POC ABG pO2 189 H ABG pO2 ABG HCO3 ABG Base Excess ABG Hemoglobin Oxyhemoglobin Sodium Potassium Chloride Carbon Dioxide BUN Creatinine Glucose POC Glucose 65 L Lactic Acid Calcium Phosphorus Magnesium Direct Bilirubin AST ALT Alkaline Phosphatase Lactate Dehydrogenase Troponin T C-Reactive Protein Total Protein Albumin Prealbumin Triglycerides Cholesterol LDL Cholesterol Direct HDL Cholesterol PTH Intact Urine pH Urine WBC (Auto) Urine Creatinine Urine Total Protein Fluid Total Protein Vancomycin Trough Rheumatoid Factor Complement C4 Miscellaneous Test Crossmatch 11/22/16 11/23/16 11/23/16 05:00 03:44 04:06 WBC RBC 2.52 L Hgb 7.2 L Hct 21.5 L MCV MCH MCHC RDW 17.1 H Plt Count Lymph % (Auto) [place] % (Auto) 12.4 H Lymph # [place] # 1.4 H Baso # Seg Neutrophils % Seg Neuts % (Manual) Lymphocytes % (Manual) Monocytes % (Manual) Eosinophils % (Manual) Basophils % (Manual) Nucleated RBC % Seg Neutrophils # Seg Neutrophils # Man Lymphocytes # (Manual) Monocytes # (Manual) Eosinophils # (Manual) Basophils # (Manual) PT INR Fibrinogen dRVVT Confirm Interp Factor V Activity POC ABG pH 7.493 H POC ABG pCO2 29.5 L POC ABG pO2 49 L ABG pO2 ABG HCO3 ABG Base Excess ABG Hemoglobin Oxyhemoglobin Sodium 134 L Potassium Chloride 95.9 L Carbon Dioxide 14 L D BUN 51 H Creatinine 2.6 H Glucose POC Glucose Lactic Acid Calcium Phosphorus Magnesium Direct Bilirubin AST ALT Alkaline Phosphatase Lactate Dehydrogenase Troponin T C-Reactive Protein Total Protein Albumin Prealbumin Triglycerides Cholesterol LDL Cholesterol Direct HDL Cholesterol PTH Intact Urine pH Urine WBC (Auto) Urine Creatinine Urine Total Protein Fluid Total Protein Vancomycin Trough Rheumatoid Factor Complement C4 Miscellaneous Test Crossmatch 11/23/16 11/23/16 11/24/16 04:06 11:29 06:39 WBC RBC Hgb Hct MCV MCH MCHC RDW Plt Count Lymph % (Auto) [place] % (Auto) Lymph # [place] # Baso # Seg Neutrophils % Seg Neuts % (Manual) Lymphocytes % (Manual) Monocytes % (Manual) Eosinophils % (Manual) Basophils % (Manual) Nucleated RBC % Seg Neutrophils # Seg Neutrophils # Man Lymphocytes # (Manual) Monocytes # (Manual) Eosinophils # (Manual) Basophils # (Manual) PT INR Fibrinogen dRVVT Confirm Interp Factor V Activity POC ABG pH POC ABG pCO2 POC ABG pO2 ABG pO2 ABG HCO3 ABG Base Excess ABG Hemoglobin Oxyhemoglobin Sodium 136 L Potassium Chloride 95.2 L Carbon Dioxide BUN 60 H Creatinine 2.9 H Glucose POC Glucose 69 L 305 H Lactic Acid Calcium Phosphorus Magnesium 1.60 L Direct Bilirubin AST ALT Alkaline Phosphatase Lactate Dehydrogenase Troponin T C-Reactive Protein Total Protein Albumin Prealbumin Triglycerides Cholesterol LDL Cholesterol Direct HDL Cholesterol PTH Intact Urine pH Urine WBC (Auto) Urine Creatinine Urine Total Protein Fluid Total Protein Vancomycin Trough Rheumatoid Factor Complement C4 Miscellaneous Test Crossmatch 11/24/16 11/24/16 11/24/16 06:43 08:08 08:08 WBC 11.2 H RBC 2.47 L Hgb 6.8 L Hct 20.6 L MCV MCH MCHC RDW 17.0 H Plt Count Lymph % (Auto) [place] % (Auto) 10.3 H Lymph # [place] # 1.2 H Baso # Seg Neutrophils % Seg Neuts % (Manual) Lymphocytes % (Manual) Monocytes % (Manual) Eosinophils % (Manual) Basophils % (Manual) Nucleated RBC % Seg Neutrophils # Seg Neutrophils # Man Lymphocytes # (Manual) Monocytes # (Manual) Eosinophils # (Manual) Basophils # (Manual) PT INR Fibrinogen dRVVT Confirm Interp Factor V Activity POC ABG pH POC ABG pCO2 POC ABG pO2 ABG pO2 ABG HCO3 ABG Base Excess ABG Hemoglobin Oxyhemoglobin Sodium 135 L Potassium Chloride 96.3 L Carbon Dioxide BUN 61 H Creatinine 3.1 H Glucose POC Glucose 62 L Lactic Acid Calcium 8.2 L Phosphorus Magnesium Direct Bilirubin AST ALT Alkaline Phosphatase Lactate Dehydrogenase Troponin T C-Reactive Protein Total Protein Albumin Prealbumin Triglycerides Cholesterol LDL Cholesterol Direct HDL Cholesterol PTH Intact Urine pH Urine WBC (Auto) Urine Creatinine Urine Total Protein Fluid Total Protein Vancomycin Trough Rheumatoid Factor Complement C4 Miscellaneous Test Crossmatch 11/24/16 11/24/16 11/24/16 08:34 11:20 12:41 WBC RBC Hgb Hct MCV MCH MCHC RDW Plt Count Lymph % (Auto) [place] % (Auto) Lymph # [place] # Baso # Seg Neutrophils % Seg Neuts % (Manual) Lymphocytes % (Manual) Monocytes % (Manual) Eosinophils % (Manual) Basophils % (Manual) Nucleated RBC % Seg Neutrophils # Seg Neutrophils # Man Lymphocytes # (Manual) Monocytes # (Manual) Eosinophils # (Manual) Basophils # (Manual) PT INR Fibrinogen dRVVT Confirm Interp Factor V Activity POC ABG pH POC ABG pCO2 POC ABG pO2 ABG pO2 ABG HCO3 ABG Base Excess ABG Hemoglobin Oxyhemoglobin Sodium Potassium Chloride Carbon Dioxide BUN Creatinine Glucose POC Glucose 108 H Lactic Acid Calcium Phosphorus Magnesium 1.60 L Direct Bilirubin AST ALT Alkaline Phosphatase Lactate Dehydrogenase Troponin T C-Reactive Protein Total Protein Albumin Prealbumin Triglycerides Cholesterol LDL Cholesterol Direct HDL Cholesterol PTH Intact Urine pH Urine WBC (Auto) Urine Creatinine Urine Total Protein Fluid Total Protein Vancomycin Trough Rheumatoid Factor Complement C4 Miscellaneous Test Crossmatch See Detail 11/25/16 11/25/16 11/25/16 00:03 04:42 04:42 WBC RBC 3.03 L Hgb 8.6 L Hct 25.3 L MCV MCH MCHC RDW 16.2 H Plt Count Lymph % (Auto) [place] % (Auto) 8.1 H Lymph # [place] # Baso # Seg Neutrophils % 71.3 H Seg Neuts % (Manual) Lymphocytes % (Manual) Monocytes % (Manual) Eosinophils % (Manual) Basophils % (Manual) Nucleated RBC % Seg Neutrophils # Seg Neutrophils # Man Lymphocytes # (Manual) Monocytes # (Manual) Eosinophils # (Manual) Basophils # (Manual) PT INR Fibrinogen dRVVT Confirm Interp Factor V Activity POC ABG pH POC ABG pCO2 POC ABG pO2 ABG pO2 ABG HCO3 ABG Base Excess ABG Hemoglobin Oxyhemoglobin Sodium Potassium Chloride Carbon Dioxide BUN 61 H Creatinine 3.0 H Glucose 102 H POC Glucose 113 H Lactic Acid Calcium 8.2 L Phosphorus Magnesium Direct Bilirubin AST ALT Alkaline Phosphatase 142 H Lactate Dehydrogenase Troponin T C-Reactive Protein Total Protein 5.7 L Albumin 1.5 L Prealbumin Triglycerides Cholesterol LDL Cholesterol Direct HDL Cholesterol PTH Intact Urine pH Urine WBC (Auto) Urine Creatinine Urine Total Protein Fluid Total Protein Vancomycin Trough Rheumatoid Factor Complement C4 Miscellaneous Test Crossmatch 11/25/16 11/25/16 11/25/16 05:12 11:31 14:12 WBC RBC Hgb Hct MCV MCH MCHC RDW Plt Count Lymph % (Auto) [place] % (Auto) Lymph # [place] # Baso # Seg Neutrophils % Seg Neuts % (Manual) Lymphocytes % (Manual) Monocytes % (Manual) Eosinophils % (Manual) Basophils % (Manual) Nucleated RBC % Seg Neutrophils # Seg Neutrophils # Man Lymphocytes # (Manual) Monocytes # (Manual) Eosinophils # (Manual) Basophils # (Manual) PT INR Fibrinogen dRVVT Confirm Interp Factor V Activity POC ABG pH 7.487 H POC ABG pCO2 POC ABG pO2 153 H ABG pO2 ABG HCO3 ABG Base Excess ABG Hemoglobin Oxyhemoglobin Sodium Potassium Chloride Carbon Dioxide BUN Creatinine Glucose POC Glucose 131 H 140 H Lactic Acid Calcium Phosphorus Magnesium Direct Bilirubin AST ALT Alkaline Phosphatase Lactate Dehydrogenase Troponin T C-Reactive Protein Total Protein Albumin Prealbumin Triglycerides Cholesterol LDL Cholesterol Direct HDL Cholesterol PTH Intact Urine pH Urine WBC (Auto) Urine Creatinine Urine Total Protein Fluid Total Protein Vancomycin Trough Rheumatoid Factor Complement C4 Miscellaneous Test Crossmatch 11/25/16 11/26/16 11/26/16 17:23 00:09 05:13 WBC RBC 2.94 L Hgb 8.4 L Hct 24.6 L MCV MCH MCHC RDW 16.4 H Plt Count Lymph % (Auto) [place] % (Auto) 12.3 H Lymph # [place] # 1.1 H Baso # Seg Neutrophils % Seg Neuts % (Manual) Lymphocytes % (Manual) Monocytes % (Manual) Eosinophils % (Manual) Basophils % (Manual) Nucleated RBC % Seg Neutrophils # Seg Neutrophils # Man Lymphocytes # (Manual) Monocytes # (Manual) Eosinophils # (Manual) Basophils # (Manual) PT INR Fibrinogen dRVVT Confirm Interp Factor V Activity POC ABG pH POC ABG pCO2 POC ABG pO2 ABG pO2 ABG HCO3 ABG Base Excess ABG Hemoglobin Oxyhemoglobin Sodium Potassium Chloride Carbon Dioxide BUN Creatinine Glucose POC Glucose 146 H 112 H Lactic Acid Calcium Phosphorus Magnesium Direct Bilirubin AST ALT Alkaline Phosphatase Lactate Dehydrogenase Troponin T C-Reactive Protein Total Protein Albumin Prealbumin Triglycerides Cholesterol LDL Cholesterol Direct HDL Cholesterol PTH Intact Urine pH Urine WBC (Auto) Urine Creatinine Urine Total Protein Fluid Total Protein Vancomycin Trough Rheumatoid Factor Complement C4 Miscellaneous Test Crossmatch 11/26/16 11/26/16 11/26/16 05:13 05:28 11:53 WBC RBC Hgb Hct MCV MCH MCHC RDW Plt Count Lymph % (Auto) [place] % (Auto) Lymph # [place] # Baso # Seg Neutrophils % Seg Neuts % (Manual) Lymphocytes % (Manual) Monocytes % (Manual) Eosinophils % (Manual) Basophils % (Manual) Nucleated RBC % Seg Neutrophils # Seg Neutrophils # Man Lymphocytes # (Manual) Monocytes # (Manual) Eosinophils # (Manual) Basophils # (Manual) PT INR Fibrinogen dRVVT Confirm Interp Factor V Activity POC ABG pH POC ABG pCO2 POC ABG pO2 ABG pO2 ABG HCO3 ABG Base Excess ABG Hemoglobin Oxyhemoglobin Sodium Potassium Chloride 97.8 L Carbon Dioxide BUN 37 H Creatinine 2.0 H Glucose 109 H POC Glucose 117 H 111 H Lactic Acid Calcium 7.9 L Phosphorus 1.80 L D Magnesium Direct Bilirubin AST ALT Alkaline Phosphatase Lactate Dehydrogenase Troponin T C-Reactive Protein Total Protein Albumin Prealbumin Triglycerides Cholesterol LDL Cholesterol Direct HDL Cholesterol PTH Intact Urine pH Urine WBC (Auto) Urine Creatinine Urine Total Protein Fluid Total Protein Vancomycin Trough Rheumatoid Factor Complement C4 Miscellaneous Test Crossmatch 11/26/16 11/27/16 11/27/16 17:14 04:50 06:02 WBC RBC Hgb Hct MCV MCH MCHC RDW Plt Count Lymph % (Auto) [place] % (Auto) Lymph # [place] # Baso # Seg Neutrophils % Seg Neuts % (Manual) Lymphocytes % (Manual) Monocytes % (Manual) Eosinophils % (Manual) Basophils % (Manual) Nucleated RBC % Seg Neutrophils # Seg Neutrophils # Man Lymphocytes # (Manual) Monocytes # (Manual) Eosinophils # (Manual) Basophils # (Manual) PT INR Fibrinogen dRVVT Confirm Interp Factor V Activity POC ABG pH POC ABG pCO2 POC ABG pO2 ABG pO2 75.2 L ABG HCO3 26.4 H ABG Base Excess ABG Hemoglobin 7.6 L Oxyhemoglobin 94.8 L Sodium Potassium Chloride Carbon Dioxide BUN 49 H Creatinine 2.3 H Glucose POC Glucose 115 H Lactic Acid Calcium Phosphorus 1.50 L Magnesium Direct Bilirubin AST ALT Alkaline Phosphatase Lactate Dehydrogenase Troponin T C-Reactive Protein Total Protein Albumin Prealbumin Triglycerides Cholesterol LDL Cholesterol Direct HDL Cholesterol PTH Intact Urine pH Urine WBC (Auto) Urine Creatinine Urine Total Protein Fluid Total Protein Vancomycin Trough Rheumatoid Factor Complement C4 Miscellaneous Test Crossmatch 11/27/16 11/27/16 11/27/16 06:02 11:25 17:25 WBC 11.6 H RBC 2.75 L Hgb 7.6 L Hct 23.4 L MCV MCH MCHC RDW 16.5 H Plt Count Lymph % (Auto) [place] % (Auto) Lymph # [place] # Baso # Seg Neutrophils % Seg Neuts % (Manual) Lymphocytes % (Manual) Monocytes % (Manual) Eosinophils % (Manual) Basophils % (Manual) Nucleated RBC % Seg Neutrophils # Seg Neutrophils # Man Lymphocytes # (Manual) Monocytes # (Manual) Eosinophils # (Manual) Basophils # (Manual) PT INR Fibrinogen dRVVT Confirm Interp Factor V Activity POC ABG pH POC ABG pCO2 POC ABG pO2 ABG pO2 ABG HCO3 ABG Base Excess ABG Hemoglobin Oxyhemoglobin Sodium Potassium Chloride Carbon Dioxide BUN Creatinine Glucose POC Glucose 114 H 126 H Lactic Acid Calcium Phosphorus Magnesium Direct Bilirubin AST ALT Alkaline Phosphatase Lactate Dehydrogenase Troponin T C-Reactive Protein Total Protein Albumin Prealbumin Triglycerides Cholesterol LDL Cholesterol Direct HDL Cholesterol PTH Intact Urine pH Urine WBC (Auto) Urine Creatinine Urine Total Protein Fluid Total Protein Vancomycin Trough Rheumatoid Factor Complement C4 Miscellaneous Test Crossmatch 11/28/16 11/28/16 11/28/16 04:45 05:33 05:44 WBC RBC Hgb Hct MCV MCH MCHC RDW Plt Count Lymph % (Auto) [place] % (Auto) Lymph # [place] # Baso # Seg Neutrophils % Seg Neuts % (Manual) Lymphocytes % (Manual) Monocytes % (Manual) Eosinophils % (Manual) Basophils % (Manual) Nucleated RBC % Seg Neutrophils # Seg Neutrophils # Man Lymphocytes # (Manual) Monocytes # (Manual) Eosinophils # (Manual) Basophils # (Manual) PT INR Fibrinogen dRVVT Confirm Interp Factor V Activity POC ABG pH POC ABG pCO2 POC ABG pO2 ABG pO2 99.3 H ABG HCO3 ABG Base Excess ABG Hemoglobin 8.3 L Oxyhemoglobin Sodium Potassium Chloride Carbon Dioxide BUN 63 H Creatinine 2.4 H Glucose 102 H POC Glucose 108 H Lactic Acid Calcium Phosphorus 1.80 L Magnesium Direct Bilirubin AST ALT Alkaline Phosphatase Lactate Dehydrogenase Troponin T C-Reactive Protein Total Protein Albumin Prealbumin Triglycerides Cholesterol LDL Cholesterol Direct HDL Cholesterol PTH Intact Urine pH Urine WBC (Auto) Urine Creatinine Urine Total Protein Fluid Total Protein Vancomycin Trough Rheumatoid Factor Complement C4 Miscellaneous Test Crossmatch 11/28/16 11/28/16 11/28/16 12:31 16:09 23:46 WBC RBC Hgb Hct MCV MCH MCHC RDW Plt Count Lymph % (Auto) [place] % (Auto) Lymph # [place] # Baso # Seg Neutrophils % Seg Neuts % (Manual) Lymphocytes % (Manual) Monocytes % (Manual) Eosinophils % (Manual) Basophils % (Manual) Nucleated RBC % Seg Neutrophils # Seg Neutrophils # Man Lymphocytes # (Manual) Monocytes # (Manual) Eosinophils # (Manual) Basophils # (Manual) PT INR Fibrinogen dRVVT Confirm Interp Factor V Activity POC ABG pH POC ABG pCO2 POC ABG pO2 ABG pO2 ABG HCO3 ABG Base Excess ABG Hemoglobin Oxyhemoglobin Sodium Potassium Chloride Carbon Dioxide BUN Creatinine Glucose POC Glucose 126 H 111 H 119 H Lactic Acid Calcium Phosphorus Magnesium Direct Bilirubin AST ALT Alkaline Phosphatase Lactate Dehydrogenase Troponin T C-Reactive Protein Total Protein Albumin Prealbumin Triglycerides Cholesterol LDL Cholesterol Direct HDL Cholesterol PTH Intact Urine pH Urine WBC (Auto) Urine Creatinine Urine Total Protein Fluid Total Protein Vancomycin Trough Rheumatoid Factor Complement C4 Miscellaneous Test Crossmatch 11/29/16 11/29/16 11/29/16 03:33 04:52 05:10 WBC RBC Hgb Hct MCV MCH MCHC RDW Plt Count Lymph % (Auto) [place] % (Auto) Lymph # [place] # Baso # Seg Neutrophils % Seg Neuts % (Manual) Lymphocytes % (Manual) Monocytes % (Manual) Eosinophils % (Manual) Basophils % (Manual) Nucleated RBC % Seg Neutrophils # Seg Neutrophils # Man Lymphocytes # (Manual) Monocytes # (Manual) Eosinophils # (Manual) Basophils # (Manual) PT INR Fibrinogen dRVVT Confirm Interp Factor V Activity POC ABG pH POC ABG pCO2 POC ABG pO2 ABG pO2 ABG HCO3 ABG Base Excess ABG Hemoglobin 7.0 L Oxyhemoglobin 94.9 L Sodium Potassium Chloride Carbon Dioxide BUN 73 H Creatinine 2.7 H Glucose POC Glucose 108 H Lactic Acid Calcium Phosphorus Magnesium Direct Bilirubin AST ALT Alkaline Phosphatase Lactate Dehydrogenase Troponin T C-Reactive Protein Total Protein Albumin Prealbumin Triglycerides Cholesterol LDL Cholesterol Direct HDL Cholesterol PTH Intact Urine pH Urine WBC (Auto) Urine Creatinine Urine Total Protein Fluid Total Protein Vancomycin Trough Rheumatoid Factor Complement C4 Miscellaneous Test Crossmatch 11/29/16 11/29/16 11/29/16 12:16 18:05 23:46 WBC RBC Hgb Hct MCV MCH MCHC RDW Plt Count Lymph % (Auto) [place] % (Auto) Lymph # [place] # Baso # Seg Neutrophils % Seg Neuts % (Manual) Lymphocytes % (Manual) Monocytes % (Manual) Eosinophils % (Manual) Basophils % (Manual) Nucleated RBC % Seg Neutrophils # Seg Neutrophils # Man Lymphocytes # (Manual) Monocytes # (Manual) Eosinophils # (Manual) Basophils # (Manual) PT INR Fibrinogen dRVVT Confirm Interp Factor V Activity POC ABG pH POC ABG pCO2 POC ABG pO2 ABG pO2 ABG HCO3 ABG Base Excess ABG Hemoglobin Oxyhemoglobin Sodium Potassium Chloride Carbon Dioxide BUN Creatinine Glucose POC Glucose 133 H 146 H 141 H Lactic Acid Calcium Phosphorus Magnesium Direct Bilirubin AST ALT Alkaline Phosphatase Lactate Dehydrogenase Troponin T C-Reactive Protein Total Protein Albumin Prealbumin Triglycerides Cholesterol LDL Cholesterol Direct HDL Cholesterol PTH Intact Urine pH Urine WBC (Auto) Urine Creatinine Urine Total Protein Fluid Total Protein Vancomycin Trough Rheumatoid Factor Complement C4 Miscellaneous Test Crossmatch 11/30/16 11/30/16 11/30/16 04:17 04:17 04:32 WBC 12.0 H RBC 2.80 L Hgb 7.8 L Hct 23.6 L MCV MCH MCHC RDW 16.6 H Plt Count Lymph % (Auto) [place] % (Auto) 11.3 H Lymph # [place] # 1.4 H Baso # Seg Neutrophils % Seg Neuts % (Manual) Lymphocytes % (Manual) Monocytes % (Manual) Eosinophils % (Manual) Basophils % (Manual) Nucleated RBC % Seg Neutrophils # 8.2 H Seg Neutrophils # Man Lymphocytes # (Manual) Monocytes # (Manual) Eosinophils # (Manual) Basophils # (Manual) PT INR Fibrinogen dRVVT Confirm Interp Factor V Activity POC ABG pH POC ABG pCO2 POC ABG pO2 ABG pO2 ABG HCO3 ABG Base Excess ABG Hemoglobin Oxyhemoglobin Sodium 169 H* D Potassium 5.1 H Chloride 121.5 H Carbon Dioxide BUN 34 H Creatinine 1.3 H D Glucose 133 H POC Glucose 131 H Lactic Acid Calcium 10.3 H Phosphorus Magnesium Direct Bilirubin AST ALT Alkaline Phosphatase Lactate Dehydrogenase Troponin T C-Reactive Protein Total Protein Albumin Prealbumin Triglycerides Cholesterol LDL Cholesterol Direct HDL Cholesterol PTH Intact Urine pH Urine WBC (Auto) Urine Creatinine Urine Total Protein Fluid Total Protein Vancomycin Trough Rheumatoid Factor Complement C4 Miscellaneous Test Crossmatch 11/30/16 11/30/16 11/30/16 05:45 11:10 17:26 WBC RBC Hgb Hct MCV MCH MCHC RDW Plt Count Lymph % (Auto) [place] % (Auto) Lymph # [place] # Baso # Seg Neutrophils % Seg Neuts % (Manual) Lymphocytes % (Manual) Monocytes % (Manual) Eosinophils % (Manual) Basophils % (Manual) Nucleated RBC % Seg Neutrophils # Seg Neutrophils # Man Lymphocytes # (Manual) Monocytes # (Manual) Eosinophils # (Manual) Basophils # (Manual) PT INR Fibrinogen dRVVT Confirm Interp Factor V Activity POC ABG pH POC ABG pCO2 POC ABG pO2 ABG pO2 ABG HCO3 ABG Base Excess ABG Hemoglobin Oxyhemoglobin Sodium Potassium Chloride Carbon Dioxide BUN 45 H Creatinine 1.6 H Glucose 131 H POC Glucose 146 H 134 H Lactic Acid Calcium Phosphorus Magnesium Direct Bilirubin AST ALT Alkaline Phosphatase Lactate Dehydrogenase Troponin T C-Reactive Protein Total Protein Albumin Prealbumin Triglycerides Cholesterol LDL Cholesterol Direct HDL Cholesterol PTH Intact Urine pH Urine WBC (Auto) Urine Creatinine Urine Total Protein Fluid Total Protein Vancomycin Trough Rheumatoid Factor Complement C4 Miscellaneous Test Crossmatch 11/30/16 12/01/16 12/01/16 23:35 00:06 03:35 WBC RBC Hgb Hct MCV MCH MCHC RDW Plt Count Lymph % (Auto) [place] % (Auto) Lymph # [place] # Baso # Seg Neutrophils % Seg Neuts % (Manual) Lymphocytes % (Manual) Monocytes % (Manual) Eosinophils % (Manual) Basophils % (Manual) Nucleated RBC % Seg Neutrophils # Seg Neutrophils # Man Lymphocytes # (Manual) Monocytes # (Manual) Eosinophils # (Manual) Basophils # (Manual) PT INR Fibrinogen dRVVT Confirm Interp Factor V Activity POC ABG pH POC ABG pCO2 POC ABG pO2 ABG pO2 ABG HCO3 ABG Base Excess ABG Hemoglobin 6.9 L Oxyhemoglobin Sodium Potassium Chloride Carbon Dioxide BUN 58 H Creatinine 1.8 H Glucose 146 H POC Glucose 151 H Lactic Acid Calcium Phosphorus Magnesium Direct Bilirubin AST ALT Alkaline Phosphatase Lactate Dehydrogenase Troponin T C-Reactive Protein Total Protein Albumin Prealbumin Triglycerides Cholesterol LDL Cholesterol Direct HDL Cholesterol PTH Intact Urine pH Urine WBC (Auto) Urine Creatinine Urine Total Protein Fluid Total Protein Vancomycin Trough Rheumatoid Factor Complement C4 Miscellaneous Test Crossmatch 12/01/16 12/01/16 12/01/16 03:35 05:47 11:52 WBC 12.3 H RBC 2.82 L Hgb 7.8 L Hct 23.7 L MCV MCH MCHC RDW 16.7 H Plt Count Lymph % (Auto) [place] % (Auto) 9.8 H Lymph # [place] # 1.2 H Baso # Seg Neutrophils % Seg Neuts % (Manual) Lymphocytes % (Manual) Monocytes % (Manual) Eosinophils % (Manual) Basophils % (Manual) Nucleated RBC % Seg Neutrophils # 8.4 H Seg Neutrophils # Man Lymphocytes # (Manual) Monocytes # (Manual) Eosinophils # (Manual) Basophils # (Manual) PT INR Fibrinogen dRVVT Confirm Interp Factor V Activity POC ABG pH POC ABG pCO2 POC ABG pO2 ABG pO2 ABG HCO3 ABG Base Excess ABG Hemoglobin Oxyhemoglobin Sodium Potassium Chloride Carbon Dioxide BUN Creatinine Glucose POC Glucose 152 H 152 H Lactic Acid Calcium Phosphorus Magnesium Direct Bilirubin AST ALT Alkaline Phosphatase Lactate Dehydrogenase Troponin T C-Reactive Protein Total Protein Albumin Prealbumin Triglycerides Cholesterol LDL Cholesterol Direct HDL Cholesterol PTH Intact Urine pH Urine WBC (Auto) Urine Creatinine Urine Total Protein Fluid Total Protein Vancomycin Trough Rheumatoid Factor Complement C4 Miscellaneous Test Crossmatch 12/01/16 12/01/16 12/02/16 17:40 23:41 05:00 WBC RBC Hgb Hct MCV MCH MCHC RDW Plt Count Lymph % (Auto) [place] % (Auto) Lymph # [place] # Baso # Seg Neutrophils % Seg Neuts % (Manual) Lymphocytes % (Manual) Monocytes % (Manual) Eosinophils % (Manual) Basophils % (Manual) Nucleated RBC % Seg Neutrophils # Seg Neutrophils # Man Lymphocytes # (Manual) Monocytes # (Manual) Eosinophils # (Manual) Basophils # (Manual) PT INR Fibrinogen dRVVT Confirm Interp Factor V Activity POC ABG pH POC ABG pCO2 POC ABG pO2 ABG pO2 ABG HCO3 ABG Base Excess ABG Hemoglobin Oxyhemoglobin Sodium Potassium Chloride Carbon Dioxide BUN 45 H Creatinine Glucose 115 H POC Glucose 140 H 144 H Lactic Acid Calcium Phosphorus Magnesium Direct Bilirubin AST ALT Alkaline Phosphatase Lactate Dehydrogenase Troponin T C-Reactive Protein Total Protein Albumin Prealbumin Triglycerides Cholesterol LDL Cholesterol Direct HDL Cholesterol PTH Intact Urine pH Urine WBC (Auto) Urine Creatinine Urine Total Protein Fluid Total Protein Vancomycin Trough Rheumatoid Factor Complement C4 Miscellaneous Test Crossmatch 12/02/16 12/02/16 12/02/16 05:31 11:20 17:38 WBC RBC Hgb Hct MCV MCH MCHC RDW Plt Count Lymph % (Auto) [place] % (Auto) Lymph # [place] # Baso # Seg Neutrophils % Seg Neuts % (Manual) Lymphocytes % (Manual) Monocytes % (Manual) Eosinophils % (Manual) Basophils % (Manual) Nucleated RBC % Seg Neutrophils # Seg Neutrophils # Man Lymphocytes # (Manual) Monocytes # (Manual) Eosinophils # (Manual) Basophils # (Manual) PT INR Fibrinogen dRVVT Confirm Interp Factor V Activity POC ABG pH POC ABG pCO2 POC ABG pO2 ABG pO2 ABG HCO3 ABG Base Excess ABG Hemoglobin Oxyhemoglobin Sodium Potassium Chloride Carbon Dioxide BUN Creatinine Glucose POC Glucose 136 H 177 H 139 H Lactic Acid Calcium Phosphorus Magnesium Direct Bilirubin AST ALT Alkaline Phosphatase Lactate Dehydrogenase Troponin T C-Reactive Protein Total Protein Albumin Prealbumin Triglycerides Cholesterol LDL Cholesterol Direct HDL Cholesterol PTH Intact Urine pH Urine WBC (Auto) Urine Creatinine Urine Total Protein Fluid Total Protein Vancomycin Trough Rheumatoid Factor Complement C4 Miscellaneous Test Crossmatch 12/02/16 12/03/16 12/03/16 23:43 04:00 04:00 WBC 20.4 H RBC 2.74 L Hgb 7.4 L Hct 23.6 L MCV MCH 27 L MCHC RDW 17.1 H Plt Count Lymph % (Auto) [place] % (Auto) Lymph # [place] # Baso # Seg Neutrophils % Seg Neuts % (Manual) 31.0 L Lymphocytes % (Manual) Monocytes % (Manual) Eosinophils % (Manual) Basophils % (Manual) Nucleated RBC % Seg Neutrophils # Seg Neutrophils # Man Lymphocytes # (Manual) Monocytes # (Manual) Eosinophils # (Manual) Basophils # (Manual) PT INR Fibrinogen dRVVT Confirm Interp Factor V Activity POC ABG pH POC ABG pCO2 POC ABG pO2 ABG pO2 ABG HCO3 ABG Base Excess ABG Hemoglobin Oxyhemoglobin Sodium Potassium Chloride Carbon Dioxide BUN 61 H Creatinine 1.6 H Glucose 119 H POC Glucose 158 H Lactic Acid Calcium Phosphorus Magnesium Direct Bilirubin AST ALT Alkaline Phosphatase Lactate Dehydrogenase Troponin T C-Reactive Protein Total Protein Albumin Prealbumin Triglycerides Cholesterol LDL Cholesterol Direct HDL Cholesterol PTH Intact Urine pH Urine WBC (Auto) Urine Creatinine Urine Total Protein Fluid Total Protein Vancomycin Trough Rheumatoid Factor Complement C4 Miscellaneous Test Crossmatch 12/03/16 12/03/16 12/03/16 05:02 12:11 18:16 WBC RBC Hgb Hct MCV MCH MCHC RDW Plt Count Lymph % (Auto) [place] % (Auto) Lymph # [place] # Baso # Seg Neutrophils % Seg Neuts % (Manual) Lymphocytes % (Manual) Monocytes % (Manual) Eosinophils % (Manual) Basophils % (Manual) Nucleated RBC % Seg Neutrophils # Seg Neutrophils # Man Lymphocytes # (Manual) Monocytes # (Manual) Eosinophils # (Manual) Basophils # (Manual) PT INR Fibrinogen dRVVT Confirm Interp Factor V Activity POC ABG pH POC ABG pCO2 POC ABG pO2 ABG pO2 ABG HCO3 ABG Base Excess ABG Hemoglobin Oxyhemoglobin Sodium Potassium Chloride Carbon Dioxide BUN Creatinine Glucose POC Glucose 146 H 157 H 124 H Lactic Acid Calcium Phosphorus Magnesium Direct Bilirubin AST ALT Alkaline Phosphatase Lactate Dehydrogenase Troponin T C-Reactive Protein Total Protein Albumin Prealbumin Triglycerides Cholesterol LDL Cholesterol Direct HDL Cholesterol PTH Intact Urine pH Urine WBC (Auto) Urine Creatinine Urine Total Protein Fluid Total Protein Vancomycin Trough Rheumatoid Factor Complement C4 Miscellaneous Test Crossmatch 12/03/16 12/04/16 12/04/16 23:41 04:00 04:45 WBC RBC Hgb Hct MCV MCH MCHC RDW Plt Count Lymph % (Auto) [place] % (Auto) Lymph # [place] # Baso # Seg Neutrophils % Seg Neuts % (Manual) Lymphocytes % (Manual) Monocytes % (Manual) Eosinophils % (Manual) Basophils % (Manual) Nucleated RBC % Seg Neutrophils # Seg Neutrophils # Man Lymphocytes # (Manual) Monocytes # (Manual) Eosinophils # (Manual) Basophils # (Manual) PT INR Fibrinogen dRVVT Confirm Interp Factor V Activity POC ABG pH POC ABG pCO2 POC ABG pO2 ABG pO2 ABG HCO3 ABG Base Excess ABG Hemoglobin Oxyhemoglobin Sodium Potassium Chloride Carbon Dioxide BUN 76 H Creatinine 1.6 H Glucose POC Glucose 130 H 136 H Lactic Acid Calcium Phosphorus Magnesium Direct Bilirubin AST ALT Alkaline Phosphatase 155 H Lactate Dehydrogenase Troponin T C-Reactive Protein Total Protein 5.5 L Albumin 1.5 L Prealbumin Triglycerides Cholesterol LDL Cholesterol Direct HDL Cholesterol PTH Intact Urine pH Urine WBC (Auto) Urine Creatinine Urine Total Protein Fluid Total Protein Vancomycin Trough Rheumatoid Factor Complement C4 Miscellaneous Test Crossmatch 12/04/16 12/04/16 12/05/16 12:08 17:23 00:10 WBC RBC Hgb Hct MCV MCH MCHC RDW Plt Count Lymph % (Auto) [place] % (Auto) Lymph # [place] # Baso # Seg Neutrophils % Seg Neuts % (Manual) Lymphocytes % (Manual) Monocytes % (Manual) Eosinophils % (Manual) Basophils % (Manual) Nucleated RBC % Seg Neutrophils # Seg Neutrophils # Man Lymphocytes # (Manual) Monocytes # (Manual) Eosinophils # (Manual) Basophils # (Manual) PT INR Fibrinogen dRVVT Confirm Interp Factor V Activity POC ABG pH POC ABG pCO2 POC ABG pO2 ABG pO2 ABG HCO3 ABG Base Excess ABG Hemoglobin Oxyhemoglobin Sodium Potassium Chloride Carbon Dioxide BUN Creatinine Glucose POC Glucose 114 H 129 H 124 H Lactic Acid Calcium Phosphorus Magnesium Direct Bilirubin AST ALT Alkaline Phosphatase Lactate Dehydrogenase Troponin T C-Reactive Protein Total Protein Albumin Prealbumin Triglycerides Cholesterol LDL Cholesterol Direct HDL Cholesterol PTH Intact Urine pH Urine WBC (Auto) Urine Creatinine Urine Total Protein Fluid Total Protein Vancomycin Trough Rheumatoid Factor Complement C4 Miscellaneous Test Crossmatch 12/05/16 12/05/16 12/05/16 05:00 05:00 05:18 WBC RBC Hgb Hct MCV MCH MCHC RDW Plt Count Lymph % (Auto) [place] % (Auto) Lymph # [place] # Baso # Seg Neutrophils % Seg Neuts % (Manual) Lymphocytes % (Manual) Monocytes % (Manual) Eosinophils % (Manual) Basophils % (Manual) Nucleated RBC % Seg Neutrophils # Seg Neutrophils # Man Lymphocytes # (Manual) Monocytes # (Manual) Eosinophils # (Manual) Basophils # (Manual) PT INR Fibrinogen dRVVT Confirm Interp Factor V Activity POC ABG pH POC ABG pCO2 POC ABG pO2 ABG pO2 ABG HCO3 ABG Base Excess ABG Hemoglobin Oxyhemoglobin Sodium Potassium Chloride Carbon Dioxide 21 L BUN 85 H Creatinine 1.9 H Glucose 131 H POC Glucose 154 H Lactic Acid Calcium Phosphorus Magnesium Direct Bilirubin AST ALT Alkaline Phosphatase Lactate Dehydrogenase Troponin T C-Reactive Protein 19.30 H Total Protein Albumin Prealbumin Triglycerides Cholesterol LDL Cholesterol Direct HDL Cholesterol PTH Intact Urine pH Urine WBC (Auto) Urine Creatinine Urine Total Protein Fluid Total Protein Vancomycin Trough Rheumatoid Factor Complement C4 Miscellaneous Test Crossmatch 12/05/16 12/05/16 12/05/16 11:43 17:46 23:25 WBC RBC Hgb Hct MCV MCH MCHC RDW Plt Count Lymph % (Auto) [place] % (Auto) Lymph # [place] # Baso # Seg Neutrophils % Seg Neuts % (Manual) Lymphocytes % (Manual) Monocytes % (Manual) Eosinophils % (Manual) Basophils % (Manual) Nucleated RBC % Seg Neutrophils # Seg Neutrophils # Man Lymphocytes # (Manual) Monocytes # (Manual) Eosinophils # (Manual) Basophils # (Manual) PT INR Fibrinogen dRVVT Confirm Interp Factor V Activity POC ABG pH POC ABG pCO2 POC ABG pO2 ABG pO2 ABG HCO3 ABG Base Excess ABG Hemoglobin Oxyhemoglobin Sodium Potassium Chloride Carbon Dioxide BUN Creatinine Glucose POC Glucose 117 H 113 H 111 H Lactic Acid Calcium Phosphorus Magnesium Direct Bilirubin AST ALT Alkaline Phosphatase Lactate Dehydrogenase Troponin T C-Reactive Protein Total Protein Albumin Prealbumin Triglycerides Cholesterol LDL Cholesterol Direct HDL Cholesterol PTH Intact Urine pH Urine WBC (Auto) Urine Creatinine Urine Total Protein Fluid Total Protein Vancomycin Trough Rheumatoid Factor Complement C4 Miscellaneous Test Crossmatch 12/05/16 12/06/16 12/06/16 Unknown 04:58 06:00 WBC RBC Hgb Hct MCV MCH MCHC RDW Plt Count Lymph % (Auto) [place] % (Auto) Lymph # [place] # Baso # Seg Neutrophils % Seg Neuts % (Manual) Lymphocytes % (Manual) Monocytes % (Manual) Eosinophils % (Manual) Basophils % (Manual) Nucleated RBC % Seg Neutrophils # Seg Neutrophils # Man Lymphocytes # (Manual) Monocytes # (Manual) Eosinophils # (Manual) Basophils # (Manual) PT INR Fibrinogen dRVVT Confirm Interp Factor V Activity POC ABG pH POC ABG pCO2 POC ABG pO2 ABG pO2 75.2 L ABG HCO3 ABG Base Excess -3.4 L ABG Hemoglobin 7.4 L Oxyhemoglobin 94.5 L Sodium Potassium Chloride Carbon Dioxide 20 L BUN 99 H Creatinine 2.1 H Glucose 126 H POC Glucose 145 H Lactic Acid Calcium Phosphorus 4.80 H Magnesium Direct Bilirubin AST ALT Alkaline Phosphatase Lactate Dehydrogenase Troponin T C-Reactive Protein Total Protein Albumin Prealbumin Triglycerides Cholesterol LDL Cholesterol Direct HDL Cholesterol PTH Intact Urine pH Urine WBC (Auto) Urine Creatinine Urine Total Protein Fluid Total Protein Vancomycin Trough Rheumatoid Factor Complement C4 Miscellaneous Test Crossmatch 12/06/16 12/06/16 12/06/16 06:46 11:54 17:55 WBC RBC Hgb 8.3 L Hct 26.4 L MCV MCH MCHC RDW Plt Count Lymph % (Auto) [place] % (Auto) Lymph # [place] # Baso # Seg Neutrophils % Seg Neuts % (Manual) Lymphocytes % (Manual) Monocytes % (Manual) Eosinophils % (Manual) Basophils % (Manual) Nucleated RBC % Seg Neutrophils # Seg Neutrophils # Man Lymphocytes # (Manual) Monocytes # (Manual) Eosinophils # (Manual) Basophils # (Manual) PT INR Fibrinogen dRVVT Confirm Interp Factor V Activity POC ABG pH POC ABG pCO2 POC ABG pO2 ABG pO2 ABG HCO3 ABG Base Excess ABG Hemoglobin Oxyhemoglobin Sodium Potassium Chloride Carbon Dioxide BUN Creatinine Glucose POC Glucose 126 H 157 H Lactic Acid Calcium Phosphorus Magnesium Direct Bilirubin AST ALT Alkaline Phosphatase Lactate Dehydrogenase Troponin T C-Reactive Protein Total Protein Albumin Prealbumin Triglycerides Cholesterol LDL Cholesterol Direct HDL Cholesterol PTH Intact Urine pH Urine WBC (Auto) Urine Creatinine Urine Total Protein Fluid Total Protein Vancomycin Trough Rheumatoid Factor Complement C4 Miscellaneous Test Crossmatch 12/06/16 12/07/16 12/07/16 23:59 05:34 06:30 WBC RBC Hgb Hct MCV MCH MCHC RDW Plt Count Lymph % (Auto) [place] % (Auto) Lymph # [place] # Baso # Seg Neutrophils % Seg Neuts % (Manual) Lymphocytes % (Manual) Monocytes % (Manual) Eosinophils % (Manual) Basophils % (Manual) Nucleated RBC % Seg Neutrophils # Seg Neutrophils # Man Lymphocytes # (Manual) Monocytes # (Manual) Eosinophils # (Manual) Basophils # (Manual) PT INR Fibrinogen dRVVT Confirm Interp Factor V Activity POC ABG pH POC ABG pCO2 POC ABG pO2 ABG pO2 ABG HCO3 ABG Base Excess ABG Hemoglobin Oxyhemoglobin Sodium Potassium Chloride Carbon Dioxide BUN 67 H Creatinine 1.4 H Glucose 126 H POC Glucose 129 H 129 H Lactic Acid Calcium Phosphorus Magnesium Direct Bilirubin AST ALT Alkaline Phosphatase Lactate Dehydrogenase Troponin T C-Reactive Protein Total Protein Albumin Prealbumin Triglycerides Cholesterol LDL Cholesterol Direct HDL Cholesterol PTH Intact Urine pH Urine WBC (Auto) Urine Creatinine Urine Total Protein Fluid Total Protein Vancomycin Trough Rheumatoid Factor Complement C4 Miscellaneous Test Crossmatch 12/07/16 12/07/16 12/07/16 06:30 08:00 09:45 WBC 18.8 H RBC 2.52 L Hgb 6.9 L 6.8 L Hct 21.2 L 21.1 L MCV MCH 27 L MCHC RDW 18.0 H Plt Count Lymph % (Auto) [place] % (Auto) 9.9 H Lymph # [place] # 1.9 H Baso # Seg Neutrophils % 71.8 H Seg Neuts % (Manual) Lymphocytes % (Manual) Monocytes % (Manual) Eosinophils % (Manual) Basophils % (Manual) Nucleated RBC % Seg Neutrophils # 13.5 H Seg Neutrophils # Man Lymphocytes # (Manual) Monocytes # (Manual) Eosinophils # (Manual) Basophils # (Manual) PT INR Fibrinogen dRVVT Confirm Interp Factor V Activity POC ABG pH POC ABG pCO2 POC ABG pO2 ABG pO2 ABG HCO3 ABG Base Excess ABG Hemoglobin Oxyhemoglobin Sodium Potassium Chloride Carbon Dioxide BUN Creatinine Glucose POC Glucose Lactic Acid Calcium Phosphorus Magnesium Direct Bilirubin AST ALT Alkaline Phosphatase Lactate Dehydrogenase Troponin T C-Reactive Protein Total Protein Albumin Prealbumin Triglycerides Cholesterol LDL Cholesterol Direct HDL Cholesterol PTH Intact Urine pH Urine WBC (Auto) Urine Creatinine Urine Total Protein Fluid Total Protein Vancomycin Trough Rheumatoid Factor Complement C4 Miscellaneous Test Crossmatch See Detail 12/07/16 12/07/16 12/07/16 11:44 18:19 23:59 WBC RBC Hgb Hct MCV MCH MCHC RDW Plt Count Lymph % (Auto) [place] % (Auto) Lymph # [place] # Baso # Seg Neutrophils % Seg Neuts % (Manual) Lymphocytes % (Manual) Monocytes % (Manual) Eosinophils % (Manual) Basophils % (Manual) Nucleated RBC % Seg Neutrophils # Seg Neutrophils # Man Lymphocytes # (Manual) Monocytes # (Manual) Eosinophils # (Manual) Basophils # (Manual) PT INR Fibrinogen dRVVT Confirm Interp Factor V Activity POC ABG pH POC ABG pCO2 POC ABG pO2 ABG pO2 ABG HCO3 ABG Base Excess ABG Hemoglobin Oxyhemoglobin Sodium Potassium Chloride Carbon Dioxide BUN Creatinine Glucose POC Glucose 137 H 138 H 133 H Lactic Acid Calcium Phosphorus Magnesium Direct Bilirubin AST ALT Alkaline Phosphatase Lactate Dehydrogenase Troponin T C-Reactive Protein Total Protein Albumin Prealbumin Triglycerides Cholesterol LDL Cholesterol Direct HDL Cholesterol PTH Intact Urine pH Urine WBC (Auto) Urine Creatinine Urine Total Protein Fluid Total Protein Vancomycin Trough Rheumatoid Factor Complement C4 Miscellaneous Test Crossmatch 12/08/16 12/08/16 12/08/16 05:25 05:30 05:30 WBC 23.8 H RBC 2.88 L Hgb 8.1 L Hct 24.3 L MCV MCH MCHC RDW 16.7 H Plt Count Lymph % (Auto) [place] % (Auto) Lymph # [place] # Baso # Seg Neutrophils % Seg Neuts % (Manual) 76.0 H Lymphocytes % (Manual) 9.0 L Monocytes % (Manual) 9.0 H Eosinophils % (Manual) Basophils % (Manual) Nucleated RBC % Seg Neutrophils # Seg Neutrophils # Man 18.1 H Lymphocytes # (Manual) Monocytes # (Manual) 2.1 H Eosinophils # (Manual) Basophils # (Manual) PT INR Fibrinogen dRVVT Confirm Interp Factor V Activity POC ABG pH POC ABG pCO2 POC ABG pO2 ABG pO2 ABG HCO3 ABG Base Excess ABG Hemoglobin Oxyhemoglobin Sodium Potassium Chloride Carbon Dioxide 21 L BUN 76 H Creatinine 1.6 H Glucose 133 H POC Glucose 177 H Lactic Acid Calcium Phosphorus Magnesium Direct Bilirubin AST ALT Alkaline Phosphatase Lactate Dehydrogenase Troponin T C-Reactive Protein Total Protein Albumin Prealbumin Triglycerides Cholesterol LDL Cholesterol Direct HDL Cholesterol PTH Intact Urine pH Urine WBC (Auto) Urine Creatinine Urine Total Protein Fluid Total Protein Vancomycin Trough Rheumatoid Factor Complement C4 Miscellaneous Test Crossmatch 12/08/16 12/08/16 12/09/16 11:45 18:00 00:00 WBC RBC Hgb Hct MCV MCH MCHC RDW Plt Count Lymph % (Auto) [place] % (Auto) Lymph # [place] # Baso # Seg Neutrophils % Seg Neuts % (Manual) Lymphocytes % (Manual) Monocytes % (Manual) Eosinophils % (Manual) Basophils % (Manual) Nucleated RBC % Seg Neutrophils # Seg Neutrophils # Man Lymphocytes # (Manual) Monocytes # (Manual) Eosinophils # (Manual) Basophils # (Manual) PT INR Fibrinogen dRVVT Confirm Interp Factor V Activity POC ABG pH POC ABG pCO2 POC ABG pO2 ABG pO2 ABG HCO3 ABG Base Excess ABG Hemoglobin Oxyhemoglobin Sodium Potassium Chloride Carbon Dioxide BUN Creatinine Glucose POC Glucose 163 H 123 H 137 H Lactic Acid Calcium Phosphorus Magnesium Direct Bilirubin AST ALT Alkaline Phosphatase Lactate Dehydrogenase Troponin T C-Reactive Protein Total Protein Albumin Prealbumin Triglycerides Cholesterol LDL Cholesterol Direct HDL Cholesterol PTH Intact Urine pH Urine WBC (Auto) Urine Creatinine Urine Total Protein Fluid Total Protein Vancomycin Trough Rheumatoid Factor Complement C4 Miscellaneous Test Crossmatch 12/09/16 12/09/16 12/09/16 05:34 06:00 06:00 WBC 15.5 H RBC 2.87 L Hgb 8.0 L Hct 24.2 L MCV MCH MCHC RDW 17.2 H Plt Count Lymph % (Auto) [place] % (Auto) 11.6 H Lymph # [place] # 1.8 H Baso # Seg Neutrophils % 70.8 H Seg Neuts % (Manual) Lymphocytes % (Manual) Monocytes % (Manual) Eosinophils % (Manual) Basophils % (Manual) Nucleated RBC % Seg Neutrophils # 11.0 H Seg Neutrophils # Man Lymphocytes # (Manual) Monocytes # (Manual) Eosinophils # (Manual) Basophils # (Manual) PT INR Fibrinogen dRVVT Confirm Interp Factor V Activity POC ABG pH POC ABG pCO2 POC ABG pO2 ABG pO2 ABG HCO3 ABG Base Excess ABG Hemoglobin Oxyhemoglobin Sodium Potassium Chloride Carbon Dioxide BUN 51 H Creatinine Glucose 117 H POC Glucose 136 H Lactic Acid Calcium Phosphorus Magnesium Direct Bilirubin AST ALT Alkaline Phosphatase Lactate Dehydrogenase Troponin T C-Reactive Protein Total Protein Albumin Prealbumin Triglycerides Cholesterol LDL Cholesterol Direct HDL Cholesterol PTH Intact Urine pH Urine WBC (Auto) Urine Creatinine Urine Total Protein Fluid Total Protein Vancomycin Trough Rheumatoid Factor Complement C4 Miscellaneous Test Crossmatch 12/09/16 12/09/16 12/09/16 12:29 17:52 23:10 WBC RBC Hgb Hct MCV MCH MCHC RDW Plt Count Lymph % (Auto) [place] % (Auto) Lymph # [place] # Baso # Seg Neutrophils % Seg Neuts % (Manual) Lymphocytes % (Manual) Monocytes % (Manual) Eosinophils % (Manual) Basophils % (Manual) Nucleated RBC % Seg Neutrophils # Seg Neutrophils # Man Lymphocytes # (Manual) Monocytes # (Manual) Eosinophils # (Manual) Basophils # (Manual) PT INR Fibrinogen dRVVT Confirm Interp Factor V Activity POC ABG pH POC ABG pCO2 POC ABG pO2 ABG pO2 ABG HCO3 ABG Base Excess ABG Hemoglobin Oxyhemoglobin Sodium Potassium Chloride Carbon Dioxide BUN Creatinine Glucose POC Glucose 139 H 140 H 129 H Lactic Acid Calcium Phosphorus Magnesium Direct Bilirubin AST ALT Alkaline Phosphatase Lactate Dehydrogenase Troponin T C-Reactive Protein Total Protein Albumin Prealbumin Triglycerides Cholesterol LDL Cholesterol Direct HDL Cholesterol PTH Intact Urine pH Urine WBC (Auto) Urine Creatinine Urine Total Protein Fluid Total Protein Vancomycin Trough Rheumatoid Factor Complement C4 Miscellaneous Test Crossmatch 12/10/16 12/10/16 12/10/16 05:00 05:00 06:54 WBC 15.7 H RBC 2.87 L Hgb 8.2 L Hct 24.4 L MCV MCH MCHC RDW 17.2 H Plt Count Lymph % (Auto) [place] % (Auto) 8.3 H Lymph # [place] # 1.3 H Baso # Seg Neutrophils % 72.8 H Seg Neuts % (Manual) Lymphocytes % (Manual) Monocytes % (Manual) Eosinophils % (Manual) Basophils % (Manual) Nucleated RBC % Seg Neutrophils # 11.4 H Seg Neutrophils # Man Lymphocytes # (Manual) Monocytes # (Manual) Eosinophils # (Manual) Basophils # (Manual) PT INR Fibrinogen dRVVT Confirm Interp Factor V Activity POC ABG pH POC ABG pCO2 POC ABG pO2 ABG pO2 ABG HCO3 ABG Base Excess ABG Hemoglobin Oxyhemoglobin Sodium Potassium Chloride Carbon Dioxide BUN 64 H Creatinine 1.4 H Glucose 134 H POC Glucose 154 H Lactic Acid Calcium Phosphorus Magnesium Direct Bilirubin AST ALT Alkaline Phosphatase Lactate Dehydrogenase Troponin T C-Reactive Protein Total Protein Albumin Prealbumin Triglycerides Cholesterol LDL Cholesterol Direct HDL Cholesterol PTH Intact Urine pH Urine WBC (Auto) Urine Creatinine Urine Total Protein Fluid Total Protein Vancomycin Trough Rheumatoid Factor Complement C4 Miscellaneous Test Crossmatch 12/10/16 12/10/16 12/10/16 11:58 17:29 23:52 WBC RBC Hgb Hct MCV MCH MCHC RDW Plt Count Lymph % (Auto) [place] % (Auto) Lymph # [place] # Baso # Seg Neutrophils % Seg Neuts % (Manual) Lymphocytes % (Manual) Monocytes % (Manual) Eosinophils % (Manual) Basophils % (Manual) Nucleated RBC % Seg Neutrophils # Seg Neutrophils # Man Lymphocytes # (Manual) Monocytes # (Manual) Eosinophils # (Manual) Basophils # (Manual) PT INR Fibrinogen dRVVT Confirm Interp Factor V Activity POC ABG pH POC ABG pCO2 POC ABG pO2 ABG pO2 ABG HCO3 ABG Base Excess ABG Hemoglobin Oxyhemoglobin Sodium Potassium Chloride Carbon Dioxide BUN Creatinine Glucose POC Glucose 144 H 163 H 125 H Lactic Acid Calcium Phosphorus Magnesium Direct Bilirubin AST ALT Alkaline Phosphatase Lactate Dehydrogenase Troponin T C-Reactive Protein Total Protein Albumin Prealbumin Triglycerides Cholesterol LDL Cholesterol Direct HDL Cholesterol PTH Intact Urine pH Urine WBC (Auto) Urine Creatinine Urine Total Protein Fluid Total Protein Vancomycin Trough Rheumatoid Factor Complement C4 Miscellaneous Test Crossmatch 12/11/16 12/11/16 12/11/16 05:38 06:30 06:30 WBC 14.4 H RBC 2.76 L Hgb 7.7 L Hct 23.4 L MCV MCH MCHC RDW 17.2 H Plt Count Lymph % (Auto) [place] % (Auto) 8.8 H Lymph # [place] # 1.3 H Baso # Seg Neutrophils % 72.5 H Seg Neuts % (Manual) Lymphocytes % (Manual) Monocytes % (Manual) Eosinophils % (Manual) Basophils % (Manual) Nucleated RBC % Seg Neutrophils # 10.5 H Seg Neutrophils # Man Lymphocytes # (Manual) Monocytes # (Manual) Eosinophils # (Manual) Basophils # (Manual) PT INR Fibrinogen dRVVT Confirm Interp Factor V Activity POC ABG pH POC ABG pCO2 POC ABG pO2 ABG pO2 ABG HCO3 ABG Base Excess ABG Hemoglobin Oxyhemoglobin Sodium Potassium Chloride Carbon Dioxide BUN 43 H Creatinine Glucose 124 H POC Glucose 141 H Lactic Acid Calcium 8.3 L Phosphorus Magnesium 1.60 L Direct Bilirubin AST ALT Alkaline Phosphatase Lactate Dehydrogenase Troponin T C-Reactive Protein Total Protein Albumin Prealbumin Triglycerides Cholesterol LDL Cholesterol Direct HDL Cholesterol PTH Intact Urine pH Urine WBC (Auto) Urine Creatinine Urine Total Protein Fluid Total Protein Vancomycin Trough Rheumatoid Factor Complement C4 Miscellaneous Test Crossmatch 12/11/16 12/11/16 12/11/16 11:15 17:59 23:48 WBC RBC Hgb Hct MCV MCH MCHC RDW Plt Count Lymph % (Auto) [place] % (Auto) Lymph # [place] # Baso # Seg Neutrophils % Seg Neuts % (Manual) Lymphocytes % (Manual) Monocytes % (Manual) Eosinophils % (Manual) Basophils % (Manual) Nucleated RBC % Seg Neutrophils # Seg Neutrophils # Man Lymphocytes # (Manual) Monocytes # (Manual) Eosinophils # (Manual) Basophils # (Manual) PT INR Fibrinogen dRVVT Confirm Interp Factor V Activity POC ABG pH POC ABG pCO2 POC ABG pO2 ABG pO2 ABG HCO3 ABG Base Excess ABG Hemoglobin Oxyhemoglobin Sodium Potassium Chloride Carbon Dioxide BUN Creatinine Glucose POC Glucose 188 H 106 H 119 H Lactic Acid Calcium Phosphorus Magnesium Direct Bilirubin AST ALT Alkaline Phosphatase Lactate Dehydrogenase Troponin T C-Reactive Protein Total Protein Albumin Prealbumin Triglycerides Cholesterol LDL Cholesterol Direct HDL Cholesterol PTH Intact Urine pH Urine WBC (Auto) Urine Creatinine Urine Total Protein Fluid Total Protein Vancomycin Trough Rheumatoid Factor Complement C4 Miscellaneous Test Crossmatch 12/12/16 12/12/16 12/12/16 05:00 06:01 12:20 WBC 16.7 H RBC 2.87 L Hgb 8.0 L Hct 24.2 L MCV MCH MCHC RDW 17.6 H Plt Count Lymph % (Auto) [place] % (Auto) Lymph # [place] # 1.2 H Baso # Seg Neutrophils % 75.3 H Seg Neuts % (Manual) Lymphocytes % (Manual) Monocytes % (Manual) Eosinophils % (Manual) Basophils % (Manual) Nucleated RBC % Seg Neutrophils # 12.6 H Seg Neutrophils # Man Lymphocytes # (Manual) Monocytes # (Manual) Eosinophils # (Manual) Basophils # (Manual) PT INR Fibrinogen dRVVT Confirm Interp Factor V Activity POC ABG pH POC ABG pCO2 POC ABG pO2 ABG pO2 ABG HCO3 ABG Base Excess ABG Hemoglobin Oxyhemoglobin Sodium Potassium Chloride Carbon Dioxide BUN Creatinine Glucose POC Glucose 134 H 149 H Lactic Acid Calcium Phosphorus Magnesium Direct Bilirubin AST ALT Alkaline Phosphatase Lactate Dehydrogenase Troponin T C-Reactive Protein Total Protein Albumin Prealbumin Triglycerides Cholesterol LDL Cholesterol Direct HDL Cholesterol PTH Intact Urine pH Urine WBC (Auto) Urine Creatinine Urine Total Protein Fluid Total Protein Vancomycin Trough Rheumatoid Factor Complement C4 Miscellaneous Test Crossmatch 12/12/16 12/12/16 12/12/16 17:38 23:01 Unknown WBC RBC Hgb Hct MCV MCH MCHC RDW Plt Count Lymph % (Auto) [place] % (Auto) Lymph # [place] # Baso # Seg Neutrophils % Seg Neuts % (Manual) Lymphocytes % (Manual) Monocytes % (Manual) Eosinophils % (Manual) Basophils % (Manual) Nucleated RBC % Seg Neutrophils # Seg Neutrophils # Man Lymphocytes # (Manual) Monocytes # (Manual) Eosinophils # (Manual) Basophils # (Manual) PT INR Fibrinogen dRVVT Confirm Interp Factor V Activity POC ABG pH POC ABG pCO2 POC ABG pO2 ABG pO2 ABG HCO3 ABG Base Excess ABG Hemoglobin Oxyhemoglobin Sodium Potassium Chloride Carbon Dioxide BUN 60 H Creatinine 1.3 H Glucose 126 H POC Glucose 127 H 144 H Lactic Acid Calcium Phosphorus Magnesium Direct Bilirubin AST ALT Alkaline Phosphatase Lactate Dehydrogenase Troponin T C-Reactive Protein Total Protein Albumin Prealbumin Triglycerides Cholesterol LDL Cholesterol Direct HDL Cholesterol PTH Intact Urine pH Urine WBC (Auto) Urine Creatinine Urine Total Protein Fluid Total Protein Vancomycin Trough Rheumatoid Factor Complement C4 Miscellaneous Test Crossmatch 12/13/16 12/13/16 12/13/16 04:00 04:00 05:19 WBC 18.7 H RBC 2.89 L Hgb 8.3 L Hct 24.6 L MCV MCH MCHC RDW 17.5 H Plt Count Lymph % (Auto) [place] % (Auto) Lymph # [place] # 1.3 H Baso # Seg Neutrophils % 71.5 H Seg Neuts % (Manual) Lymphocytes % (Manual) Monocytes % (Manual) Eosinophils % (Manual) Basophils % (Manual) Nucleated RBC % Seg Neutrophils # 13.4 H Seg Neutrophils # Man Lymphocytes # (Manual) Monocytes # (Manual) Eosinophils # (Manual) Basophils # (Manual) PT INR Fibrinogen dRVVT Confirm Interp Factor V Activity POC ABG pH POC ABG pCO2 POC ABG pO2 ABG pO2 ABG HCO3 ABG Base Excess ABG Hemoglobin Oxyhemoglobin Sodium Potassium Chloride Carbon Dioxide BUN 73 H Creatinine 1.5 H Glucose 141 H POC Glucose 171 H Lactic Acid Calcium Phosphorus Magnesium Direct Bilirubin AST ALT Alkaline Phosphatase Lactate Dehydrogenase Troponin T C-Reactive Protein Total Protein Albumin Prealbumin Triglycerides Cholesterol LDL Cholesterol Direct HDL Cholesterol PTH Intact Urine pH Urine WBC (Auto) Urine Creatinine Urine Total Protein Fluid Total Protein Vancomycin Trough Rheumatoid Factor Complement C4 Miscellaneous Test Crossmatch 12/13/16 12/13/16 12/14/16 12:28 16:48 00:01 WBC RBC Hgb Hct MCV MCH MCHC RDW Plt Count Lymph % (Auto) [place] % (Auto) Lymph # [place] # Baso # Seg Neutrophils % Seg Neuts % (Manual) Lymphocytes % (Manual) Monocytes % (Manual) Eosinophils % (Manual) Basophils % (Manual) Nucleated RBC % Seg Neutrophils # Seg Neutrophils # Man Lymphocytes # (Manual) Monocytes # (Manual) Eosinophils # (Manual) Basophils # (Manual) PT INR Fibrinogen dRVVT Confirm Interp Factor V Activity POC ABG pH POC ABG pCO2 POC ABG pO2 ABG pO2 ABG HCO3 ABG Base Excess ABG Hemoglobin Oxyhemoglobin Sodium Potassium Chloride Carbon Dioxide BUN Creatinine Glucose POC Glucose 206 H 173 H 139 H Lactic Acid Calcium Phosphorus Magnesium Direct Bilirubin AST ALT Alkaline Phosphatase Lactate Dehydrogenase Troponin T C-Reactive Protein Total Protein Albumin Prealbumin Triglycerides Cholesterol LDL Cholesterol Direct HDL Cholesterol PTH Intact Urine pH Urine WBC (Auto) Urine Creatinine Urine Total Protein Fluid Total Protein Vancomycin Trough Rheumatoid Factor Complement C4 Miscellaneous Test Crossmatch 12/14/16 12/14/16 12/14/16 05:16 06:10 11:17 WBC RBC Hgb Hct MCV MCH MCHC RDW Plt Count Lymph % (Auto) [place] % (Auto) Lymph # [place] # Baso # Seg Neutrophils % Seg Neuts % (Manual) Lymphocytes % (Manual) Monocytes % (Manual) Eosinophils % (Manual) Basophils % (Manual) Nucleated RBC % Seg Neutrophils # Seg Neutrophils # Man Lymphocytes # (Manual) Monocytes # (Manual) Eosinophils # (Manual) Basophils # (Manual) PT INR Fibrinogen dRVVT Confirm Interp Factor V Activity POC ABG pH POC ABG pCO2 POC ABG pO2 ABG pO2 ABG HCO3 ABG Base Excess ABG Hemoglobin Oxyhemoglobin Sodium Potassium Chloride Carbon Dioxide BUN 57 H Creatinine 1.4 H Glucose 135 H POC Glucose 158 H 137 H Lactic Acid Calcium Phosphorus Magnesium Direct Bilirubin AST ALT Alkaline Phosphatase Lactate Dehydrogenase Troponin T C-Reactive Protein Total Protein Albumin Prealbumin Triglycerides Cholesterol LDL Cholesterol Direct HDL Cholesterol PTH Intact Urine pH Urine WBC (Auto) Urine Creatinine Urine Total Protein Fluid Total Protein Vancomycin Trough Rheumatoid Factor Complement C4 Miscellaneous Test Crossmatch 12/14/16 12/14/16 12/15/16 17:52 23:27 04:00 WBC RBC Hgb Hct MCV MCH MCHC RDW Plt Count Lymph % (Auto) [place] % (Auto) Lymph # [place] # Baso # Seg Neutrophils % Seg Neuts % (Manual) Lymphocytes % (Manual) Monocytes % (Manual) Eosinophils % (Manual) Basophils % (Manual) Nucleated RBC % Seg Neutrophils # Seg Neutrophils # Man Lymphocytes # (Manual) Monocytes # (Manual) Eosinophils # (Manual) Basophils # (Manual) PT INR Fibrinogen dRVVT Confirm Interp Factor V Activity POC ABG pH POC ABG pCO2 POC ABG pO2 ABG pO2 ABG HCO3 ABG Base Excess ABG Hemoglobin Oxyhemoglobin Sodium Potassium Chloride 97.9 L Carbon Dioxide BUN 75 H Creatinine 1.6 H Glucose 122 H POC Glucose 149 H 163 H Lactic Acid Calcium Phosphorus 5.20 H Magnesium Direct Bilirubin AST ALT Alkaline Phosphatase Lactate Dehydrogenase Troponin T C-Reactive Protein Total Protein Albumin Prealbumin Triglycerides Cholesterol LDL Cholesterol Direct HDL Cholesterol PTH Intact Urine pH Urine WBC (Auto) Urine Creatinine Urine Total Protein Fluid Total Protein Vancomycin Trough Rheumatoid Factor Complement C4 Miscellaneous Test Crossmatch 12/15/16 12/15/16 12/15/16 05:50 11:24 17:01 WBC RBC Hgb Hct MCV MCH MCHC RDW Plt Count Lymph % (Auto) [place] % (Auto) Lymph # [place] # Baso # Seg Neutrophils % Seg Neuts % (Manual) Lymphocytes % (Manual) Monocytes % (Manual) Eosinophils % (Manual) Basophils % (Manual) Nucleated RBC % Seg Neutrophils # Seg Neutrophils # Man Lymphocytes # (Manual) Monocytes # (Manual) Eosinophils # (Manual) Basophils # (Manual) PT INR Fibrinogen dRVVT Confirm Interp Factor V Activity POC ABG pH POC ABG pCO2 POC ABG pO2 ABG pO2 ABG HCO3 ABG Base Excess ABG Hemoglobin Oxyhemoglobin Sodium Potassium Chloride Carbon Dioxide BUN Creatinine Glucose POC Glucose 150 H 146 H 167 H Lactic Acid Calcium Phosphorus Magnesium Direct Bilirubin AST ALT Alkaline Phosphatase Lactate Dehydrogenase Troponin T C-Reactive Protein Total Protein Albumin Prealbumin Triglycerides Cholesterol LDL Cholesterol Direct HDL Cholesterol PTH Intact Urine pH Urine WBC (Auto) Urine Creatinine Urine Total Protein Fluid Total Protein Vancomycin Trough Rheumatoid Factor Complement C4 Miscellaneous Test Crossmatch 12/15/16 12/16/16 12/16/16 23:34 05:25 11:24 WBC RBC Hgb Hct MCV MCH MCHC RDW Plt Count Lymph % (Auto) [place] % (Auto) Lymph # [place] # Baso # Seg Neutrophils % Seg Neuts % (Manual) Lymphocytes % (Manual) Monocytes % (Manual) Eosinophils % (Manual) Basophils % (Manual) Nucleated RBC % Seg Neutrophils # Seg Neutrophils # Man Lymphocytes # (Manual) Monocytes # (Manual) Eosinophils # (Manual) Basophils # (Manual) PT INR Fibrinogen dRVVT Confirm Interp Factor V Activity POC ABG pH POC ABG pCO2 POC ABG pO2 ABG pO2 ABG HCO3 ABG Base Excess ABG Hemoglobin Oxyhemoglobin Sodium Potassium Chloride Carbon Dioxide BUN Creatinine Glucose POC Glucose 127 H 139 H 165 H Lactic Acid Calcium Phosphorus Magnesium Direct Bilirubin AST ALT Alkaline Phosphatase Lactate Dehydrogenase Troponin T C-Reactive Protein Total Protein Albumin Prealbumin Triglycerides Cholesterol LDL Cholesterol Direct HDL Cholesterol PTH Intact Urine pH Urine WBC (Auto) Urine Creatinine Urine Total Protein Fluid Total Protein Vancomycin Trough Rheumatoid Factor Complement C4 Miscellaneous Test Crossmatch 12/16/16 12/16/16 12/16/16 15:30 16:25 17:31 WBC 17.8 H RBC 2.38 L Hgb 6.4 L Hct 20.3 L MCV MCH 27 L MCHC RDW 17.4 H Plt Count Lymph % (Auto) [place] % (Auto) Lymph # [place] # Baso # Seg Neutrophils % Seg Neuts % (Manual) Lymphocytes % (Manual) Monocytes % (Manual) 10.0 H Eosinophils % (Manual) Basophils % (Manual) Nucleated RBC % Seg Neutrophils # Seg Neutrophils # Man 8.5 H Lymphocytes # (Manual) Monocytes # (Manual) 1.8 H Eosinophils # (Manual) Basophils # (Manual) PT INR Fibrinogen dRVVT Confirm Interp Factor V Activity POC ABG pH POC ABG pCO2 POC ABG pO2 ABG pO2 ABG HCO3 ABG Base Excess ABG Hemoglobin Oxyhemoglobin Sodium Potassium Chloride Carbon Dioxide BUN Creatinine Glucose POC Glucose 176 H Lactic Acid Calcium Phosphorus Magnesium Direct Bilirubin AST ALT Alkaline Phosphatase Lactate Dehydrogenase Troponin T C-Reactive Protein Total Protein Albumin Prealbumin Triglycerides Cholesterol LDL Cholesterol Direct HDL Cholesterol PTH Intact Urine pH Urine WBC (Auto) Urine Creatinine Urine Total Protein Fluid Total Protein Vancomycin Trough Rheumatoid Factor Complement C4 Miscellaneous Test Crossmatch See Detail 12/17/16 12/17/16 12/17/16 00:14 04:00 05:00 WBC 20.0 H RBC 2.99 L Hgb 8.5 L Hct 25.7 L MCV MCH MCHC RDW 17.2 H Plt Count Lymph % (Auto) [place] % (Auto) Lymph # [place] # Baso # Seg Neutrophils % Seg Neuts % (Manual) Lymphocytes % (Manual) Monocytes % (Manual) Eosinophils % (Manual) Basophils % (Manual) Nucleated RBC % Seg Neutrophils # Seg Neutrophils # Man Lymphocytes # (Manual) Monocytes # (Manual) Eosinophils # (Manual) Basophils # (Manual) PT INR Fibrinogen dRVVT Confirm Interp Factor V Activity POC ABG pH POC ABG pCO2 POC ABG pO2 ABG pO2 ABG HCO3 ABG Base Excess ABG Hemoglobin Oxyhemoglobin Sodium Potassium Chloride 97.7 L Carbon Dioxide BUN 73 H Creatinine 1.7 H Glucose 136 H POC Glucose 148 H Lactic Acid Calcium Phosphorus 2.20 L Magnesium 2.70 H Direct Bilirubin AST ALT Alkaline Phosphatase Lactate Dehydrogenase Troponin T C-Reactive Protein Total Protein Albumin Prealbumin Triglycerides Cholesterol LDL Cholesterol Direct HDL Cholesterol PTH Intact Urine pH Urine WBC (Auto) Urine Creatinine Urine Total Protein Fluid Total Protein Vancomycin Trough Rheumatoid Factor Complement C4 Miscellaneous Test Crossmatch 12/17/16 12/17/16 12/17/16 05:39 12:50 16:32 WBC RBC Hgb Hct MCV MCH MCHC RDW Plt Count Lymph % (Auto) [place] % (Auto) Lymph # [place] # Baso # Seg Neutrophils % Seg Neuts % (Manual) Lymphocytes % (Manual) Monocytes % (Manual) Eosinophils % (Manual) Basophils % (Manual) Nucleated RBC % Seg Neutrophils # Seg Neutrophils # Man Lymphocytes # (Manual) Monocytes # (Manual) Eosinophils # (Manual) Basophils # (Manual) PT INR Fibrinogen dRVVT Confirm Interp Factor V Activity POC ABG pH POC ABG pCO2 POC ABG pO2 ABG pO2 ABG HCO3 ABG Base Excess ABG Hemoglobin Oxyhemoglobin Sodium Potassium Chloride Carbon Dioxide BUN Creatinine Glucose POC Glucose 162 H 146 H 169 H Lactic Acid Calcium Phosphorus Magnesium Direct Bilirubin AST ALT Alkaline Phosphatase Lactate Dehydrogenase Troponin T C-Reactive Protein Total Protein Albumin Prealbumin Triglycerides Cholesterol LDL Cholesterol Direct HDL Cholesterol PTH Intact Urine pH Urine WBC (Auto) Urine Creatinine Urine Total Protein Fluid Total Protein Vancomycin Trough Rheumatoid Factor Complement C4 Miscellaneous Test Crossmatch 12/17/16 12/18/16 12/18/16 23:57 05:00 05:32 WBC RBC Hgb Hct MCV MCH MCHC RDW Plt Count Lymph % (Auto) [place] % (Auto) Lymph # [place] # Baso # Seg Neutrophils % Seg Neuts % (Manual) Lymphocytes % (Manual) Monocytes % (Manual) Eosinophils % (Manual) Basophils % (Manual) Nucleated RBC % Seg Neutrophils # Seg Neutrophils # Man Lymphocytes # (Manual) Monocytes # (Manual) Eosinophils # (Manual) Basophils # (Manual) PT INR Fibrinogen dRVVT Confirm Interp Factor V Activity POC ABG pH POC ABG pCO2 POC ABG pO2 ABG pO2 ABG HCO3 ABG Base Excess ABG Hemoglobin Oxyhemoglobin Sodium Potassium Chloride 97.0 L Carbon Dioxide BUN 63 H Creatinine 1.4 H Glucose 174 H POC Glucose 145 H 201 H Lactic Acid Calcium Phosphorus 1.70 L D Magnesium Direct Bilirubin AST ALT Alkaline Phosphatase 257 H Lactate Dehydrogenase Troponin T C-Reactive Protein Total Protein 5.9 L Albumin 1.8 L Prealbumin Triglycerides Cholesterol LDL Cholesterol Direct HDL Cholesterol PTH Intact Urine pH Urine WBC (Auto) Urine Creatinine Urine Total Protein Fluid Total Protein Vancomycin Trough Rheumatoid Factor Complement C4 Miscellaneous Test Crossmatch 12/18/16 12/18/16 12/18/16 11:43 16:52 23:52 WBC RBC Hgb Hct MCV MCH MCHC RDW Plt Count Lymph % (Auto) [place] % (Auto) Lymph # [place] # Baso # Seg Neutrophils % Seg Neuts % (Manual) Lymphocytes % (Manual) Monocytes % (Manual) Eosinophils % (Manual) Basophils % (Manual) Nucleated RBC % Seg Neutrophils # Seg Neutrophils # Man Lymphocytes # (Manual) Monocytes # (Manual) Eosinophils # (Manual) Basophils # (Manual) PT INR Fibrinogen dRVVT Confirm Interp Factor V Activity POC ABG pH POC ABG pCO2 POC ABG pO2 ABG pO2 ABG HCO3 ABG Base Excess ABG Hemoglobin Oxyhemoglobin Sodium Potassium Chloride Carbon Dioxide BUN Creatinine Glucose POC Glucose 177 H 110 H 162 H Lactic Acid Calcium Phosphorus Magnesium Direct Bilirubin AST ALT Alkaline Phosphatase Lactate Dehydrogenase Troponin T C-Reactive Protein Total Protein Albumin Prealbumin Triglycerides Cholesterol LDL Cholesterol Direct HDL Cholesterol PTH Intact Urine pH Urine WBC (Auto) Urine Creatinine Urine Total Protein Fluid Total Protein Vancomycin Trough Rheumatoid Factor Complement C4 Miscellaneous Test Crossmatch 12/19/16 12/19/16 12/19/16 05:02 05:24 09:30 WBC 20.1 H RBC 2.73 L Hgb 7.6 L Hct 23.6 L MCV MCH MCHC RDW 17.6 H Plt Count Lymph % (Auto) [place] % (Auto) Lymph # [place] # Baso # Seg Neutrophils % Seg Neuts % (Manual) Lymphocytes % (Manual) 13.0 L Monocytes % (Manual) Eosinophils % (Manual) Basophils % (Manual) Nucleated RBC % 1.0 H Seg Neutrophils # Seg Neutrophils # Man 12.9 H Lymphocytes # (Manual) Monocytes # (Manual) 1.4 H Eosinophils # (Manual) Basophils # (Manual) 0.2 H PT INR Fibrinogen dRVVT Confirm Interp Factor V Activity POC ABG pH POC ABG pCO2 POC ABG pO2 ABG pO2 ABG HCO3 ABG Base Excess ABG Hemoglobin Oxyhemoglobin Sodium Potassium Chloride 97.8 L Carbon Dioxide BUN 84 H Creatinine 1.6 H Glucose 133 H POC Glucose 134 H Lactic Acid Calcium Phosphorus Magnesium Direct Bilirubin AST ALT Alkaline Phosphatase Lactate Dehydrogenase Troponin T C-Reactive Protein Total Protein Albumin Prealbumin Triglycerides Cholesterol LDL Cholesterol Direct HDL Cholesterol PTH Intact Urine pH Urine WBC (Auto) Urine Creatinine Urine Total Protein Fluid Total Protein Vancomycin Trough Rheumatoid Factor Complement C4 Miscellaneous Test Crossmatch 12/19/16 12/19/16 12/19/16 09:36 11:12 18:29 WBC RBC Hgb Hct MCV MCH MCHC RDW Plt Count Lymph % (Auto) [place] % (Auto) Lymph # [place] # Baso # Seg Neutrophils % Seg Neuts % (Manual) Lymphocytes % (Manual) Monocytes % (Manual) Eosinophils % (Manual) Basophils % (Manual) Nucleated RBC % Seg Neutrophils # Seg Neutrophils # Man Lymphocytes # (Manual) Monocytes # (Manual) Eosinophils # (Manual) Basophils # (Manual) PT INR Fibrinogen dRVVT Confirm Interp Factor V Activity POC ABG pH 7.503 H POC ABG pCO2 30.1 L POC ABG pO2 ABG pO2 ABG HCO3 ABG Base Excess ABG Hemoglobin Oxyhemoglobin Sodium Potassium Chloride Carbon Dioxide BUN Creatinine Glucose POC Glucose 138 H 156 H Lactic Acid Calcium Phosphorus Magnesium Direct Bilirubin AST ALT Alkaline Phosphatase Lactate Dehydrogenase Troponin T C-Reactive Protein Total Protein Albumin Prealbumin Triglycerides Cholesterol LDL Cholesterol Direct HDL Cholesterol PTH Intact Urine pH Urine WBC (Auto) Urine Creatinine Urine Total Protein Fluid Total Protein Vancomycin Trough Rheumatoid Factor Complement C4 Miscellaneous Test Crossmatch 12/20/16 12/20/16 12/20/16 00:03 06:17 07:07 WBC RBC Hgb Hct MCV MCH MCHC RDW Plt Count Lymph % (Auto) [place] % (Auto) Lymph # [place] # Baso # Seg Neutrophils % Seg Neuts % (Manual) Lymphocytes % (Manual) Monocytes % (Manual) Eosinophils % (Manual) Basophils % (Manual) Nucleated RBC % Seg Neutrophils # Seg Neutrophils # Man Lymphocytes # (Manual) Monocytes # (Manual) Eosinophils # (Manual) Basophils # (Manual) PT INR Fibrinogen dRVVT Confirm Interp Factor V Activity POC ABG pH POC ABG pCO2 POC ABG pO2 ABG pO2 ABG HCO3 ABG Base Excess ABG Hemoglobin Oxyhemoglobin Sodium Potassium Chloride 97.1 L Carbon Dioxide 20 L BUN 97 H Creatinine 1.8 H Glucose 153 H POC Glucose 152 H 175 H Lactic Acid Calcium Phosphorus Magnesium Direct Bilirubin AST ALT Alkaline Phosphatase Lactate Dehydrogenase Troponin T C-Reactive Protein Total Protein Albumin Prealbumin Triglycerides Cholesterol LDL Cholesterol Direct HDL Cholesterol PTH Intact Urine pH Urine WBC (Auto) Urine Creatinine Urine Total Protein Fluid Total Protein Vancomycin Trough Rheumatoid Factor Complement C4 Miscellaneous Test Crossmatch 12/20/16 12/20/16 12/20/16 12:00 17:42 23:53 WBC RBC Hgb Hct MCV MCH MCHC RDW Plt Count Lymph % (Auto) [place] % (Auto) Lymph # [place] # Baso # Seg Neutrophils % Seg Neuts % (Manual) Lymphocytes % (Manual) Monocytes % (Manual) Eosinophils % (Manual) Basophils % (Manual) Nucleated RBC % Seg Neutrophils # Seg Neutrophils # Man Lymphocytes # (Manual) Monocytes # (Manual) Eosinophils # (Manual) Basophils # (Manual) PT INR Fibrinogen dRVVT Confirm Interp Factor V Activity POC ABG pH POC ABG pCO2 POC ABG pO2 ABG pO2 ABG HCO3 ABG Base Excess ABG Hemoglobin Oxyhemoglobin Sodium Potassium Chloride Carbon Dioxide BUN Creatinine Glucose POC Glucose 141 H 156 H 132 H Lactic Acid Calcium Phosphorus Magnesium Direct Bilirubin AST ALT Alkaline Phosphatase Lactate Dehydrogenase Troponin T C-Reactive Protein Total Protein Albumin Prealbumin Triglycerides Cholesterol LDL Cholesterol Direct HDL Cholesterol PTH Intact Urine pH Urine WBC (Auto) Urine Creatinine Urine Total Protein Fluid Total Protein Vancomycin Trough Rheumatoid Factor Complement C4 Miscellaneous Test Crossmatch 12/21/16 12/21/16 12/21/16 05:49 08:50 12:19 WBC RBC Hgb Hct MCV MCH MCHC RDW Plt Count Lymph % (Auto) [place] % (Auto) Lymph # [place] # Baso # Seg Neutrophils % Seg Neuts % (Manual) Lymphocytes % (Manual) Monocytes % (Manual) Eosinophils % (Manual) Basophils % (Manual) Nucleated RBC % Seg Neutrophils # Seg Neutrophils # Man Lymphocytes # (Manual) Monocytes # (Manual) Eosinophils # (Manual) Basophils # (Manual) PT INR Fibrinogen dRVVT Confirm Interp Factor V Activity POC ABG pH POC ABG pCO2 POC ABG pO2 ABG pO2 ABG HCO3 ABG Base Excess ABG Hemoglobin Oxyhemoglobin Sodium Potassium 5.2 H D Chloride Carbon Dioxide BUN 63 H Creatinine Glucose 122 H POC Glucose 132 H 136 H Lactic Acid Calcium 8.3 L Phosphorus Magnesium Direct Bilirubin AST ALT Alkaline Phosphatase Lactate Dehydrogenase Troponin T C-Reactive Protein Total Protein Albumin Prealbumin Triglycerides Cholesterol LDL Cholesterol Direct HDL Cholesterol PTH Intact Urine pH Urine WBC (Auto) Urine Creatinine Urine Total Protein Fluid Total Protein Vancomycin Trough Rheumatoid Factor Complement C4 Miscellaneous Test Crossmatch 12/21/16 12/21/16 12/22/16 17:22 23:58 05:49 WBC RBC Hgb Hct MCV MCH MCHC RDW Plt Count Lymph % (Auto) [place] % (Auto) Lymph # [place] # Baso # Seg Neutrophils % Seg Neuts % (Manual) Lymphocytes % (Manual) Monocytes % (Manual) Eosinophils % (Manual) Basophils % (Manual) Nucleated RBC % Seg Neutrophils # Seg Neutrophils # Man Lymphocytes # (Manual) Monocytes # (Manual) Eosinophils # (Manual) Basophils # (Manual) PT INR Fibrinogen dRVVT Confirm Interp Factor V Activity POC ABG pH POC ABG pCO2 POC ABG pO2 ABG pO2 ABG HCO3 ABG Base Excess ABG Hemoglobin Oxyhemoglobin Sodium Potassium Chloride Carbon Dioxide BUN Creatinine Glucose POC Glucose 135 H 149 H 140 H Lactic Acid Calcium Phosphorus Magnesium Direct Bilirubin AST ALT Alkaline Phosphatase Lactate Dehydrogenase Troponin T C-Reactive Protein Total Protein Albumin Prealbumin Triglycerides Cholesterol LDL Cholesterol Direct HDL Cholesterol PTH Intact Urine pH Urine WBC (Auto) Urine Creatinine Urine Total Protein Fluid Total Protein Vancomycin Trough Rheumatoid Factor Complement C4 Miscellaneous Test Crossmatch 12/22/16 12/22/16 12/22/16 06:10 11:17 17:31 WBC RBC Hgb Hct MCV MCH MCHC RDW Plt Count Lymph % (Auto) [place] % (Auto) Lymph # [place] # Baso # Seg Neutrophils % Seg Neuts % (Manual) Lymphocytes % (Manual) Monocytes % (Manual) Eosinophils % (Manual) Basophils % (Manual) Nucleated RBC % Seg Neutrophils # Seg Neutrophils # Man Lymphocytes # (Manual) Monocytes # (Manual) Eosinophils # (Manual) Basophils # (Manual) PT INR Fibrinogen dRVVT Confirm Interp Factor V Activity POC ABG pH POC ABG pCO2 POC ABG pO2 ABG pO2 ABG HCO3 ABG Base Excess ABG Hemoglobin Oxyhemoglobin Sodium Potassium Chloride Carbon Dioxide BUN 76 H Creatinine 1.5 H Glucose 241 H POC Glucose 193 H 148 H Lactic Acid Calcium Phosphorus Magnesium Direct Bilirubin AST ALT Alkaline Phosphatase Lactate Dehydrogenase Troponin T C-Reactive Protein Total Protein Albumin Prealbumin Triglycerides Cholesterol LDL Cholesterol Direct HDL Cholesterol PTH Intact Urine pH Urine WBC (Auto) Urine Creatinine Urine Total Protein Fluid Total Protein Vancomycin Trough Rheumatoid Factor Complement C4 Miscellaneous Test Crossmatch 12/22/16 12/23/16 12/23/16 23:58 05:00 05:26 WBC RBC Hgb Hct MCV MCH MCHC RDW Plt Count Lymph % (Auto) [place] % (Auto) Lymph # [place] # Baso # Seg Neutrophils % Seg Neuts % (Manual) Lymphocytes % (Manual) Monocytes % (Manual) Eosinophils % (Manual) Basophils % (Manual) Nucleated RBC % Seg Neutrophils # Seg Neutrophils # Man Lymphocytes # (Manual) Monocytes # (Manual) Eosinophils # (Manual) Basophils # (Manual) PT INR Fibrinogen dRVVT Confirm Interp Factor V Activity POC ABG pH POC ABG pCO2 POC ABG pO2 ABG pO2 ABG HCO3 ABG Base Excess ABG Hemoglobin Oxyhemoglobin Sodium Potassium Chloride Carbon Dioxide BUN 49 H Creatinine Glucose 143 H POC Glucose 165 H 154 H Lactic Acid Calcium 8.2 L Phosphorus Magnesium 1.60 L Direct Bilirubin AST ALT Alkaline Phosphatase Lactate Dehydrogenase Troponin T C-Reactive Protein Total Protein Albumin Prealbumin Triglycerides Cholesterol LDL Cholesterol Direct HDL Cholesterol PTH Intact Urine pH Urine WBC (Auto) Urine Creatinine Urine Total Protein Fluid Total Protein Vancomycin Trough Rheumatoid Factor Complement C4 Miscellaneous Test Crossmatch 12/23/16 12/23/16 12/24/16 12:35 17:01 00:01 WBC RBC Hgb Hct MCV MCH MCHC RDW Plt Count Lymph % (Auto) [place] % (Auto) Lymph # [place] # Baso # Seg Neutrophils % Seg Neuts % (Manual) Lymphocytes % (Manual) Monocytes % (Manual) Eosinophils % (Manual) Basophils % (Manual) Nucleated RBC % Seg Neutrophils # Seg Neutrophils # Man Lymphocytes # (Manual) Monocytes # (Manual) Eosinophils # (Manual) Basophils # (Manual) PT INR Fibrinogen dRVVT Confirm Interp Factor V Activity POC ABG pH POC ABG pCO2 POC ABG pO2 ABG pO2 ABG HCO3 ABG Base Excess ABG Hemoglobin Oxyhemoglobin Sodium Potassium Chloride Carbon Dioxide BUN Creatinine Glucose POC Glucose 164 H 149 H 135 H Lactic Acid Calcium Phosphorus Magnesium Direct Bilirubin AST ALT Alkaline Phosphatase Lactate Dehydrogenase Troponin T C-Reactive Protein Total Protein Albumin Prealbumin Triglycerides Cholesterol LDL Cholesterol Direct HDL Cholesterol PTH Intact Urine pH Urine WBC (Auto) Urine Creatinine Urine Total Protein Fluid Total Protein Vancomycin Trough Rheumatoid Factor Complement C4 Miscellaneous Test Crossmatch 12/24/16 12/24/16 12/24/16 05:41 07:01 11:38 WBC RBC Hgb Hct MCV MCH MCHC RDW Plt Count Lymph % (Auto) [place] % (Auto) Lymph # [place] # Baso # Seg Neutrophils % Seg Neuts % (Manual) Lymphocytes % (Manual) Monocytes % (Manual) Eosinophils % (Manual) Basophils % (Manual) Nucleated RBC % Seg Neutrophils # Seg Neutrophils # Man Lymphocytes # (Manual) Monocytes # (Manual) Eosinophils # (Manual) Basophils # (Manual) PT INR Fibrinogen dRVVT Confirm Interp Factor V Activity POC ABG pH POC ABG pCO2 POC ABG pO2 ABG pO2 ABG HCO3 ABG Base Excess ABG Hemoglobin Oxyhemoglobin Sodium Potassium Chloride Carbon Dioxide BUN 72 H Creatinine 1.3 H Glucose 130 H POC Glucose 132 H 156 H Lactic Acid Calcium 8.2 L Phosphorus Magnesium Direct Bilirubin AST ALT Alkaline Phosphatase Lactate Dehydrogenase Troponin T C-Reactive Protein Total Protein Albumin Prealbumin Triglycerides Cholesterol LDL Cholesterol Direct HDL Cholesterol PTH Intact Urine pH Urine WBC (Auto) Urine Creatinine Urine Total Protein Fluid Total Protein Vancomycin Trough Rheumatoid Factor Complement C4 Miscellaneous Test Crossmatch 12/24/16 12/25/16 12/25/16 17:53 00:23 05:45 WBC RBC Hgb Hct MCV MCH MCHC RDW Plt Count Lymph % (Auto) [place] % (Auto) Lymph # [place] # Baso # Seg Neutrophils % Seg Neuts % (Manual) Lymphocytes % (Manual) Monocytes % (Manual) Eosinophils % (Manual) Basophils % (Manual) Nucleated RBC % Seg Neutrophils # Seg Neutrophils # Man Lymphocytes # (Manual) Monocytes # (Manual) Eosinophils # (Manual) Basophils # (Manual) PT INR Fibrinogen dRVVT Confirm Interp Factor V Activity POC ABG pH POC ABG pCO2 POC ABG pO2 ABG pO2 ABG HCO3 ABG Base Excess ABG Hemoglobin Oxyhemoglobin Sodium 146 H Potassium Chloride Carbon Dioxide BUN 51 H Creatinine Glucose 109 H POC Glucose 169 H 117 H Lactic Acid Calcium Phosphorus Magnesium Direct Bilirubin AST ALT Alkaline Phosphatase Lactate Dehydrogenase Troponin T C-Reactive Protein Total Protein Albumin Prealbumin Triglycerides Cholesterol LDL Cholesterol Direct HDL Cholesterol PTH Intact Urine pH Urine WBC (Auto) Urine Creatinine Urine Total Protein Fluid Total Protein Vancomycin Trough Rheumatoid Factor Complement C4 Miscellaneous Test Crossmatch 12/25/16 12/25/16 12/25/16 06:43 11:29 17:14 WBC RBC Hgb Hct MCV MCH MCHC RDW Plt Count Lymph % (Auto) [place] % (Auto) Lymph # [place] # Baso # Seg Neutrophils % Seg Neuts % (Manual) Lymphocytes % (Manual) Monocytes % (Manual) Eosinophils % (Manual) Basophils % (Manual) Nucleated RBC % Seg Neutrophils # Seg Neutrophils # Man Lymphocytes # (Manual) Monocytes # (Manual) Eosinophils # (Manual) Basophils # (Manual) PT INR Fibrinogen dRVVT Confirm Interp Factor V Activity POC ABG pH POC ABG pCO2 POC ABG pO2 ABG pO2 ABG HCO3 ABG Base Excess ABG Hemoglobin Oxyhemoglobin Sodium Potassium Chloride Carbon Dioxide BUN Creatinine Glucose POC Glucose 117 H 128 H 120 H Lactic Acid Calcium Phosphorus Magnesium Direct Bilirubin AST ALT Alkaline Phosphatase Lactate Dehydrogenase Troponin T C-Reactive Protein Total Protein Albumin Prealbumin Triglycerides Cholesterol LDL Cholesterol Direct HDL Cholesterol PTH Intact Urine pH Urine WBC (Auto) Urine Creatinine Urine Total Protein Fluid Total Protein Vancomycin Trough Rheumatoid Factor Complement C4 Miscellaneous Test Crossmatch 12/25/16 12/26/16 12/26/16 23:54 05:40 05:50 WBC 16.2 H RBC 2.32 L Hgb 6.2 L Hct 20.1 L MCV MCH 27 L MCHC RDW 18.6 H Plt Count Lymph % (Auto) [place] % (Auto) Lymph # [place] # Baso # Seg Neutrophils % Seg Neuts % (Manual) Lymphocytes % (Manual) Monocytes % (Manual) Eosinophils % (Manual) Basophils % (Manual) Nucleated RBC % Seg Neutrophils # Seg Neutrophils # Man Lymphocytes # (Manual) Monocytes # (Manual) Eosinophils # (Manual) Basophils # (Manual) PT INR Fibrinogen dRVVT Confirm Interp Factor V Activity POC ABG pH POC ABG pCO2 POC ABG pO2 ABG pO2 ABG HCO3 ABG Base Excess ABG Hemoglobin Oxyhemoglobin Sodium Potassium Chloride Carbon Dioxide BUN Creatinine Glucose POC Glucose 126 H 132 H Lactic Acid Calcium Phosphorus Magnesium Direct Bilirubin AST ALT Alkaline Phosphatase Lactate Dehydrogenase Troponin T C-Reactive Protein Total Protein Albumin Prealbumin Triglycerides Cholesterol LDL Cholesterol Direct HDL Cholesterol PTH Intact Urine pH Urine WBC (Auto) Urine Creatinine Urine Total Protein Fluid Total Protein Vancomycin Trough Rheumatoid Factor Complement C4 Miscellaneous Test Crossmatch 12/26/16 12/26/1617 05:50 12:17 12:33 WBC RBC Hgb Hct MCV MCH MCHC RDW Plt Count Lymph % (Auto) [place] % (Auto) Lymph # [place] # Baso # Seg Neutrophils % Seg Neuts % (Manual) Lymphocytes % (Manual) Monocytes % (Manual) Eosinophils % (Manual) Basophils % (Manual) Nucleated RBC % Seg Neutrophils # Seg Neutrophils # Man Lymphocytes # (Manual) Monocytes # (Manual) Eosinophils # (Manual) Basophils # (Manual) PT INR Fibrinogen dRVVT Confirm Interp Factor V Activity POC ABG pH POC ABG pCO2 POC ABG pO2 ABG pO2 ABG HCO3 ABG Base Excess ABG Hemoglobin Oxyhemoglobin Sodium Potassium Chloride Carbon Dioxide BUN 73 H Creatinine 1.3 H Glucose 113 H POC Glucose 117 H Lactic Acid Calcium Phosphorus Magnesium Direct Bilirubin AST ALT Alkaline Phosphatase Lactate Dehydrogenase Troponin T C-Reactive Protein Total Protein Albumin Prealbumin Triglycerides Cholesterol LDL Cholesterol Direct HDL Cholesterol PTH Intact Urine pH Urine WBC (Auto) Urine Creatinine Urine Total Protein Fluid Total Protein Vancomycin Trough Rheumatoid Factor Complement C4 Miscellaneous Test Crossmatch See Detail 12/26/16 12/26/16 12/27/16 20:00 23:21 05:00 WBC RBC Hgb 8.4 L Hct 26.3 L D MCV MCH MCHC RDW Plt Count Lymph % (Auto) [place] % (Auto) Lymph # [place] # Baso # Seg Neutrophils % Seg Neuts % (Manual) Lymphocytes % (Manual) Monocytes % (Manual) Eosinophils % (Manual) Basophils % (Manual) Nucleated RBC % Seg Neutrophils # Seg Neutrophils # Man Lymphocytes # (Manual) Monocytes # (Manual) Eosinophils # (Manual) Basophils # (Manual) PT INR Fibrinogen dRVVT Confirm Interp Factor V Activity POC ABG pH POC ABG pCO2 POC ABG pO2 ABG pO2 ABG HCO3 ABG Base Excess ABG Hemoglobin Oxyhemoglobin Sodium Potassium Chloride Carbon Dioxide BUN 85 H Creatinine 1.6 H Glucose 118 H POC Glucose 124 H Lactic Acid Calcium Phosphorus 4.80 H Magnesium Direct Bilirubin AST ALT Alkaline Phosphatase Lactate Dehydrogenase Troponin T C-Reactive Protein Total Protein Albumin Prealbumin Triglycerides Cholesterol LDL Cholesterol Direct HDL Cholesterol PTH Intact Urine pH Urine WBC (Auto) Urine Creatinine Urine Total Protein Fluid Total Protein Vancomycin Trough Rheumatoid Factor Complement C4 Miscellaneous Test Crossmatch 12/27/16 12/27/16 12/27/16 05:00 05:35 12:24 WBC RBC Hgb 7.6 L Hct 22.8 L MCV MCH MCHC RDW Plt Count Lymph % (Auto) [place] % (Auto) Lymph # [place] # Baso # Seg Neutrophils % Seg Neuts % (Manual) Lymphocytes % (Manual) Monocytes % (Manual) Eosinophils % (Manual) Basophils % (Manual) Nucleated RBC % Seg Neutrophils # Seg Neutrophils # Man Lymphocytes # (Manual) Monocytes # (Manual) Eosinophils # (Manual) Basophils # (Manual) PT INR Fibrinogen dRVVT Confirm Interp Factor V Activity POC ABG pH POC ABG pCO2 POC ABG pO2 ABG pO2 ABG HCO3 ABG Base Excess ABG Hemoglobin Oxyhemoglobin Sodium Potassium Chloride Carbon Dioxide BUN Creatinine Glucose POC Glucose 115 H 131 H Lactic Acid Calcium Phosphorus Magnesium Direct Bilirubin AST ALT Alkaline Phosphatase Lactate Dehydrogenase Troponin T C-Reactive Protein Total Protein Albumin Prealbumin Triglycerides Cholesterol LDL Cholesterol Direct HDL Cholesterol PTH Intact Urine pH Urine WBC (Auto) Urine Creatinine Urine Total Protein Fluid Total Protein Vancomycin Trough Rheumatoid Factor Complement C4 Miscellaneous Test Crossmatch 12/27/16 12/28/16 12/28/16 17:16 00:18 04:00 WBC RBC Hgb Hct MCV MCH MCHC RDW Plt Count Lymph % (Auto) [place] % (Auto) Lymph # [place] # Baso # Seg Neutrophils % Seg Neuts % (Manual) Lymphocytes % (Manual) Monocytes % (Manual) Eosinophils % (Manual) Basophils % (Manual) Nucleated RBC % Seg Neutrophils # Seg Neutrophils # Man Lymphocytes # (Manual) Monocytes # (Manual) Eosinophils # (Manual) Basophils # (Manual) PT INR Fibrinogen dRVVT Confirm Interp Factor V Activity POC ABG pH POC ABG pCO2 POC ABG pO2 ABG pO2 ABG HCO3 ABG Base Excess ABG Hemoglobin Oxyhemoglobin Sodium Potassium 3.5 L Chloride Carbon Dioxide BUN 57 H Creatinine Glucose 118 H POC Glucose 136 H 120 H Lactic Acid Calcium 8.3 L Phosphorus Magnesium Direct Bilirubin AST ALT Alkaline Phosphatase Lactate Dehydrogenase Troponin T C-Reactive Protein Total Protein Albumin Prealbumin Triglycerides Cholesterol LDL Cholesterol Direct HDL Cholesterol PTH Intact Urine pH Urine WBC (Auto) Urine Creatinine Urine Total Protein Fluid Total Protein Vancomycin Trough Rheumatoid Factor Complement C4 Miscellaneous Test Crossmatch 12/28/16 12/28/16 12/28/16 04:00 05:11 08:30 WBC 17.0 H RBC 2.58 L Hgb 7.1 L Hct 22.0 L MCV MCH MCHC RDW 17.6 H Plt Count Lymph % (Auto) 12.2 L [place] % (Auto) Lymph # [place] # 1.1 H Baso # Seg Neutrophils % 80.5 H Seg Neuts % (Manual) Lymphocytes % (Manual) Monocytes % (Manual) Eosinophils % (Manual) Basophils % (Manual) Nucleated RBC % Seg Neutrophils # 13.7 H Seg Neutrophils # Man Lymphocytes # (Manual) Monocytes # (Manual) Eosinophils # (Manual) Basophils # (Manual) PT 16.1 H INR 1.23 H Fibrinogen dRVVT Confirm Interp Factor V Activity POC ABG pH POC ABG pCO2 POC ABG pO2 ABG pO2 ABG HCO3 ABG Base Excess ABG Hemoglobin Oxyhemoglobin Sodium Potassium Chloride Carbon Dioxide BUN Creatinine Glucose POC Glucose 122 H Lactic Acid Calcium Phosphorus Magnesium Direct Bilirubin AST ALT Alkaline Phosphatase Lactate Dehydrogenase Troponin T C-Reactive Protein Total Protein Albumin Prealbumin Triglycerides Cholesterol LDL Cholesterol Direct HDL Cholesterol PTH Intact Urine pH Urine WBC (Auto) Urine Creatinine Urine Total Protein Fluid Total Protein Vancomycin Trough Rheumatoid Factor Complement C4 Miscellaneous Test Crossmatch 12/28/16 12/28/16 12/28/16 12:27 16:32 23:46 WBC RBC Hgb Hct MCV MCH MCHC RDW Plt Count Lymph % (Auto) [place] % (Auto) Lymph # [place] # Baso # Seg Neutrophils % Seg Neuts % (Manual) Lymphocytes % (Manual) Monocytes % (Manual) Eosinophils % (Manual) Basophils % (Manual) Nucleated RBC % Seg Neutrophils # Seg Neutrophils # Man Lymphocytes # (Manual) Monocytes # (Manual) Eosinophils # (Manual) Basophils # (Manual) PT INR Fibrinogen dRVVT Confirm Interp Factor V Activity POC ABG pH POC ABG pCO2 POC ABG pO2 ABG pO2 ABG HCO3 ABG Base Excess ABG Hemoglobin Oxyhemoglobin Sodium Potassium Chloride Carbon Dioxide BUN Creatinine Glucose POC Glucose 127 H 117 H 108 H Lactic Acid Calcium Phosphorus Magnesium Direct Bilirubin AST ALT Alkaline Phosphatase Lactate Dehydrogenase Troponin T C-Reactive Protein Total Protein Albumin Prealbumin Triglycerides Cholesterol LDL Cholesterol Direct HDL Cholesterol PTH Intact Urine pH Urine WBC (Auto) Urine Creatinine Urine Total Protein Fluid Total Protein Vancomycin Trough Rheumatoid Factor Complement C4 Miscellaneous Test Crossmatch 12/29/16 12/29/16 12/29/16 05:15 05:15 05:32 WBC RBC Hgb Hct MCV MCH MCHC RDW Plt Count Lymph % (Auto) [place] % (Auto) Lymph # [place] # Baso # Seg Neutrophils % Seg Neuts % (Manual) Lymphocytes % (Manual) Monocytes % (Manual) Eosinophils % (Manual) Basophils % (Manual) Nucleated RBC % Seg Neutrophils # Seg Neutrophils # Man Lymphocytes # (Manual) Monocytes # (Manual) Eosinophils # (Manual) Basophils # (Manual) PT INR Fibrinogen dRVVT Confirm Interp Factor V Activity POC ABG pH POC ABG pCO2 POC ABG pO2 ABG pO2 ABG HCO3 ABG Base Excess ABG Hemoglobin Oxyhemoglobin Sodium Potassium Chloride Carbon Dioxide BUN 74 H Creatinine 1.6 H Glucose 111 H POC Glucose 123 H Lactic Acid Calcium Phosphorus Magnesium Direct Bilirubin AST ALT Alkaline Phosphatase Lactate Dehydrogenase Troponin T C-Reactive Protein Total Protein Albumin Prealbumin 0.110 L Triglycerides Cholesterol LDL Cholesterol Direct HDL Cholesterol PTH Intact Urine pH Urine WBC (Auto) Urine Creatinine Urine Total Protein Fluid Total Protein Vancomycin Trough Rheumatoid Factor Complement C4 Miscellaneous Test Crossmatch 12/29/16 12/29/16 12/29/16 11:43 13:45 14:00 WBC 13.8 H RBC 2.26 L Hgb 6.3 L Hct 20.4 L MCV MCH MCHC RDW 18.3 H Plt Count Lymph % (Auto) [place] % (Auto) Lymph # [place] # 0.9 H Baso # Seg Neutrophils % 78.6 H Seg Neuts % (Manual) Lymphocytes % (Manual) Monocytes % (Manual) Eosinophils % (Manual) Basophils % (Manual) Nucleated RBC % Seg Neutrophils # 10.8 H Seg Neutrophils # Man Lymphocytes # (Manual) Monocytes # (Manual) Eosinophils # (Manual) Basophils # (Manual) PT INR Fibrinogen dRVVT Confirm Interp Factor V Activity POC ABG pH POC ABG pCO2 POC ABG pO2 ABG pO2 ABG HCO3 ABG Base Excess ABG Hemoglobin Oxyhemoglobin Sodium Potassium Chloride Carbon Dioxide BUN Creatinine Glucose POC Glucose 133 H Lactic Acid Calcium Phosphorus Magnesium Direct Bilirubin AST ALT Alkaline Phosphatase Lactate Dehydrogenase Troponin T C-Reactive Protein Total Protein Albumin Prealbumin Triglycerides Cholesterol LDL Cholesterol Direct HDL Cholesterol PTH Intact Urine pH Urine WBC (Auto) Urine Creatinine Urine Total Protein Fluid Total Protein Vancomycin Trough Rheumatoid Factor Complement C4 Miscellaneous Test Crossmatch See Detail 12/29/16 12/29/16 12/29/16 17:03 23:15 23:22 WBC RBC Hgb 7.3 L Hct 22.3 L MCV MCH MCHC RDW Plt Count Lymph % (Auto) [place] % (Auto) Lymph # [place] # Baso # Seg Neutrophils % Seg Neuts % (Manual) Lymphocytes % (Manual) Monocytes % (Manual) Eosinophils % (Manual) Basophils % (Manual) Nucleated RBC % Seg Neutrophils # Seg Neutrophils # Man Lymphocytes # (Manual) Monocytes # (Manual) Eosinophils # (Manual) Basophils # (Manual) PT INR Fibrinogen dRVVT Confirm Interp Factor V Activity POC ABG pH POC ABG pCO2 POC ABG pO2 ABG pO2 ABG HCO3 ABG Base Excess ABG Hemoglobin Oxyhemoglobin Sodium Potassium Chloride Carbon Dioxide BUN Creatinine Glucose POC Glucose 139 H 120 H Lactic Acid Calcium Phosphorus Magnesium Direct Bilirubin AST ALT Alkaline Phosphatase Lactate Dehydrogenase Troponin T C-Reactive Protein Total Protein Albumin Prealbumin Triglycerides Cholesterol LDL Cholesterol Direct HDL Cholesterol PTH Intact Urine pH Urine WBC (Auto) Urine Creatinine Urine Total Protein Fluid Total Protein Vancomycin Trough Rheumatoid Factor Complement C4 Miscellaneous Test Crossmatch 12/30/16 12/30/16 12/30/16 04:20 04:20 05:43 WBC 15.6 H RBC 2.81 L Hgb 8.0 L Hct 24.0 L MCV MCH MCHC RDW 16.9 H Plt Count Lymph % (Auto) [place] % (Auto) Lymph # [place] # 1.0 H Baso # Seg Neutrophils % 76.2 H Seg Neuts % (Manual) Lymphocytes % (Manual) Monocytes % (Manual) Eosinophils % (Manual) Basophils % (Manual) Nucleated RBC % Seg Neutrophils # 11.9 H Seg Neutrophils # Man Lymphocytes # (Manual) Monocytes # (Manual) Eosinophils # (Manual) Basophils # (Manual) PT INR Fibrinogen dRVVT Confirm Interp Factor V Activity POC ABG pH POC ABG pCO2 POC ABG pO2 ABG pO2 ABG HCO3 ABG Base Excess ABG Hemoglobin Oxyhemoglobin Sodium Potassium Chloride Carbon Dioxide BUN 87 H Creatinine 1.8 H Glucose 119 H POC Glucose 115 H Lactic Acid Calcium Phosphorus Magnesium Direct Bilirubin AST ALT Alkaline Phosphatase Lactate Dehydrogenase Troponin T C-Reactive Protein Total Protein Albumin Prealbumin Triglycerides Cholesterol LDL Cholesterol Direct HDL Cholesterol PTH Intact Urine pH Urine WBC (Auto) Urine Creatinine Urine Total Protein Fluid Total Protein Vancomycin Trough Rheumatoid Factor Complement C4 Miscellaneous Test Crossmatch 12/30/16 12/30/16 12/31/16 17:27 23:21 04:00 WBC RBC Hgb Hct MCV MCH MCHC RDW Plt Count Lymph % (Auto) [place] % (Auto) Lymph # [place] # Baso # Seg Neutrophils % Seg Neuts % (Manual) Lymphocytes % (Manual) Monocytes % (Manual) Eosinophils % (Manual) Basophils % (Manual) Nucleated RBC % Seg Neutrophils # Seg Neutrophils # Man Lymphocytes # (Manual) Monocytes # (Manual) Eosinophils # (Manual) Basophils # (Manual) PT INR Fibrinogen dRVVT Confirm Interp Factor V Activity POC ABG pH POC ABG pCO2 POC ABG pO2 ABG pO2 ABG HCO3 ABG Base Excess ABG Hemoglobin Oxyhemoglobin Sodium Potassium Chloride Carbon Dioxide BUN 59 H Creatinine Glucose 298 H POC Glucose 144 H 125 H Lactic Acid Calcium Phosphorus Magnesium Direct Bilirubin AST ALT Alkaline Phosphatase Lactate Dehydrogenase Troponin T C-Reactive Protein Total Protein Albumin Prealbumin Triglycerides Cholesterol LDL Cholesterol Direct HDL Cholesterol PTH Intact Urine pH Urine WBC (Auto) Urine Creatinine Urine Total Protein Fluid Total Protein Vancomycin Trough Rheumatoid Factor Complement C4 Miscellaneous Test Crossmatch 12/31/16 12/31/16 12/31/16 05:11 12:18 18:17 WBC RBC Hgb Hct MCV MCH MCHC RDW Plt Count Lymph % (Auto) [place] % (Auto) Lymph # [place] # Baso # Seg Neutrophils % Seg Neuts % (Manual) Lymphocytes % (Manual) Monocytes % (Manual) Eosinophils % (Manual) Basophils % (Manual) Nucleated RBC % Seg Neutrophils # Seg Neutrophils # Man Lymphocytes # (Manual) Monocytes # (Manual) Eosinophils # (Manual) Basophils # (Manual) PT INR Fibrinogen dRVVT Confirm Interp Factor V Activity POC ABG pH POC ABG pCO2 POC ABG pO2 ABG pO2 ABG HCO3 ABG Base Excess ABG Hemoglobin Oxyhemoglobin Sodium Potassium Chloride Carbon Dioxide BUN Creatinine Glucose POC Glucose 167 H 125 H 133 H Lactic Acid Calcium Phosphorus Magnesium Direct Bilirubin AST ALT Alkaline Phosphatase Lactate Dehydrogenase Troponin T C-Reactive Protein Total Protein Albumin Prealbumin Triglycerides Cholesterol LDL Cholesterol Direct HDL Cholesterol PTH Intact Urine pH Urine WBC (Auto) Urine Creatinine Urine Total Protein Fluid Total Protein Vancomycin Trough Rheumatoid Factor Complement C4 Miscellaneous Test Crossmatch 12/31/16 01/01/17 01/01/17 23:55 05:00 05:12 WBC RBC Hgb Hct MCV MCH MCHC RDW Plt Count Lymph % (Auto) [place] % (Auto) Lymph # [place] # Baso # Seg Neutrophils % Seg Neuts % (Manual) Lymphocytes % (Manual) Monocytes % (Manual) Eosinophils % (Manual) Basophils % (Manual) Nucleated RBC % Seg Neutrophils # Seg Neutrophils # Man Lymphocytes # (Manual) Monocytes # (Manual) Eosinophils # (Manual) Basophils # (Manual) PT INR Fibrinogen dRVVT Confirm Interp Factor V Activity POC ABG pH POC ABG pCO2 POC ABG pO2 ABG pO2 ABG HCO3 ABG Base Excess ABG Hemoglobin Oxyhemoglobin Sodium Potassium Chloride Carbon Dioxide BUN 76 H Creatinine 1.5 H Glucose 109 H POC Glucose 129 H 129 H Lactic Acid Calcium Phosphorus Magnesium Direct Bilirubin AST ALT Alkaline Phosphatase 536 H Lactate Dehydrogenase Troponin T C-Reactive Protein Total Protein Albumin 1.5 L Prealbumin Triglycerides Cholesterol LDL Cholesterol Direct HDL Cholesterol PTH Intact Urine pH Urine WBC (Auto) Urine Creatinine Urine Total Protein Fluid Total Protein Vancomycin Trough Rheumatoid Factor Complement C4 Miscellaneous Test Crossmatch 01/01/17 01/01/17 01/01/17 12:25 17:01 23:32 WBC RBC Hgb Hct MCV MCH MCHC RDW Plt Count Lymph % (Auto) [place] % (Auto) Lymph # [place] # Baso # Seg Neutrophils % Seg Neuts % (Manual) Lymphocytes % (Manual) Monocytes % (Manual) Eosinophils % (Manual) Basophils % (Manual) Nucleated RBC % Seg Neutrophils # Seg Neutrophils # Man Lymphocytes # (Manual) Monocytes # (Manual) Eosinophils # (Manual) Basophils # (Manual) PT INR Fibrinogen dRVVT Confirm Interp Factor V Activity POC ABG pH POC ABG pCO2 POC ABG pO2 ABG pO2 ABG HCO3 ABG Base Excess ABG Hemoglobin Oxyhemoglobin Sodium Potassium Chloride Carbon Dioxide BUN Creatinine Glucose POC Glucose 140 H 142 H 112 H Lactic Acid Calcium Phosphorus Magnesium Direct Bilirubin AST ALT Alkaline Phosphatase Lactate Dehydrogenase Troponin T C-Reactive Protein Total Protein Albumin Prealbumin Triglycerides Cholesterol LDL Cholesterol Direct HDL Cholesterol PTH Intact Urine pH Urine WBC (Auto) Urine Creatinine Urine Total Protein Fluid Total Protein Vancomycin Trough Rheumatoid Factor Complement C4 Miscellaneous Test Crossmatch 01/02/17 01/02/17 01/02/17 04:56 06:00 11:37 WBC RBC Hgb Hct MCV MCH MCHC RDW Plt Count Lymph % (Auto) [place] % (Auto) Lymph # [place] # Baso # Seg Neutrophils % Seg Neuts % (Manual) Lymphocytes % (Manual) Monocytes % (Manual) Eosinophils % (Manual) Basophils % (Manual) Nucleated RBC % Seg Neutrophils # Seg Neutrophils # Man Lymphocytes # (Manual) Monocytes # (Manual) Eosinophils # (Manual) Basophils # (Manual) PT INR Fibrinogen dRVVT Confirm Interp Factor V Activity POC ABG pH POC ABG pCO2 POC ABG pO2 ABG pO2 ABG HCO3 ABG Base Excess ABG Hemoglobin Oxyhemoglobin Sodium Potassium Chloride Carbon Dioxide BUN 88 H Creatinine 1.7 H Glucose 113 H POC Glucose 136 H 200 H Lactic Acid Calcium Phosphorus Magnesium Direct Bilirubin AST ALT Alkaline Phosphatase Lactate Dehydrogenase Troponin T C-Reactive Protein Total Protein Albumin Prealbumin Triglycerides Cholesterol LDL Cholesterol Direct HDL Cholesterol PTH Intact Urine pH Urine WBC (Auto) Urine Creatinine Urine Total Protein Fluid Total Protein Vancomycin Trough Rheumatoid Factor Complement C4 Miscellaneous Test Crossmatch 01/02/17 01/02/17 01/03/17 17:42 22:52 04:54 WBC RBC Hgb Hct MCV MCH MCHC RDW Plt Count Lymph % (Auto) [place] % (Auto) Lymph # [place] # Baso # Seg Neutrophils % Seg Neuts % (Manual) Lymphocytes % (Manual) Monocytes % (Manual) Eosinophils % (Manual) Basophils % (Manual) Nucleated RBC % Seg Neutrophils # Seg Neutrophils # Man Lymphocytes # (Manual) Monocytes # (Manual) Eosinophils # (Manual) Basophils # (Manual) PT INR Fibrinogen dRVVT Confirm Interp Factor V Activity POC ABG pH POC ABG pCO2 POC ABG pO2 ABG pO2 ABG HCO3 ABG Base Excess ABG Hemoglobin Oxyhemoglobin Sodium Potassium Chloride Carbon Dioxide BUN Creatinine Glucose POC Glucose 112 H 133 H 111 H Lactic Acid Calcium Phosphorus Magnesium Direct Bilirubin AST ALT Alkaline Phosphatase Lactate Dehydrogenase Troponin T C-Reactive Protein Total Protein Albumin Prealbumin Triglycerides Cholesterol LDL Cholesterol Direct HDL Cholesterol PTH Intact Urine pH Urine WBC (Auto) Urine Creatinine Urine Total Protein Fluid Total Protein Vancomycin Trough Rheumatoid Factor Complement C4 Miscellaneous Test Crossmatch 01/03/17 01/03/17 01/03/17 05:00 05:00 14:02 WBC 11.2 H RBC 2.56 L Hgb 7.2 L Hct 22.3 L MCV MCH MCHC RDW 17.3 H Plt Count Lymph % (Auto) [place] % (Auto) 10.0 H Lymph # [place] # 1.1 H Baso # Seg Neutrophils % 70.5 H Seg Neuts % (Manual) Lymphocytes % (Manual) Monocytes % (Manual) Eosinophils % (Manual) Basophils % (Manual) Nucleated RBC % Seg Neutrophils # 7.9 H Seg Neutrophils # Man Lymphocytes # (Manual) Monocytes # (Manual) Eosinophils # (Manual) Basophils # (Manual) PT INR Fibrinogen dRVVT Confirm Interp Factor V Activity POC ABG pH POC ABG pCO2 POC ABG pO2 ABG pO2 ABG HCO3 ABG Base Excess ABG Hemoglobin Oxyhemoglobin Sodium Potassium Chloride Carbon Dioxide BUN 60 H Creatinine 1.3 H Glucose 110 H POC Glucose 119 H Lactic Acid Calcium Phosphorus Magnesium Direct Bilirubin AST ALT Alkaline Phosphatase Lactate Dehydrogenase Troponin T C-Reactive Protein Total Protein Albumin Prealbumin Triglycerides Cholesterol LDL Cholesterol Direct HDL Cholesterol PTH Intact Urine pH Urine WBC (Auto) Urine Creatinine Urine Total Protein Fluid Total Protein Vancomycin Trough Rheumatoid Factor Complement C4 Miscellaneous Test Crossmatch 01/03/17 01/03/17 01/04/17 18:13 23:40 05:57 WBC RBC Hgb Hct MCV MCH MCHC RDW Plt Count Lymph % (Auto) [place] % (Auto) Lymph # [place] # Baso # Seg Neutrophils % Seg Neuts % (Manual) Lymphocytes % (Manual) Monocytes % (Manual) Eosinophils % (Manual) Basophils % (Manual) Nucleated RBC % Seg Neutrophils # Seg Neutrophils # Man Lymphocytes # (Manual) Monocytes # (Manual) Eosinophils # (Manual) Basophils # (Manual) PT INR Fibrinogen dRVVT Confirm Interp Factor V Activity POC ABG pH POC ABG pCO2 POC ABG pO2 ABG pO2 ABG HCO3 ABG Base Excess ABG Hemoglobin Oxyhemoglobin Sodium Potassium Chloride Carbon Dioxide BUN Creatinine Glucose POC Glucose 107 H 129 H 111 H Lactic Acid Calcium Phosphorus Magnesium Direct Bilirubin AST ALT Alkaline Phosphatase Lactate Dehydrogenase Troponin T C-Reactive Protein Total Protein Albumin Prealbumin Triglycerides Cholesterol LDL Cholesterol Direct HDL Cholesterol PTH Intact Urine pH Urine WBC (Auto) Urine Creatinine Urine Total Protein Fluid Total Protein Vancomycin Trough Rheumatoid Factor Complement C4 Miscellaneous Test Crossmatch 01/04/17 01/04/17 01/04/17 12:46 15:27 17:11 WBC RBC Hgb Hct MCV MCH MCHC RDW Plt Count Lymph % (Auto) [place] % (Auto) Lymph # [place] # Baso # Seg Neutrophils % Seg Neuts % (Manual) Lymphocytes % (Manual) Monocytes % (Manual) Eosinophils % (Manual) Basophils % (Manual) Nucleated RBC % Seg Neutrophils # Seg Neutrophils # Man Lymphocytes # (Manual) Monocytes # (Manual) Eosinophils # (Manual) Basophils # (Manual) PT INR Fibrinogen dRVVT Confirm Interp Factor V Activity POC ABG pH POC ABG pCO2 POC ABG pO2 ABG pO2 ABG HCO3 ABG Base Excess ABG Hemoglobin Oxyhemoglobin Sodium Potassium Chloride Carbon Dioxide BUN 43 H Creatinine Glucose 124 H POC Glucose 159 H 125 H Lactic Acid Calcium 8.0 L Phosphorus 2.10 L Magnesium Direct Bilirubin AST ALT Alkaline Phosphatase Lactate Dehydrogenase Troponin T C-Reactive Protein Total Protein Albumin Prealbumin Triglycerides Cholesterol LDL Cholesterol Direct HDL Cholesterol PTH Intact Urine pH Urine WBC (Auto) Urine Creatinine Urine Total Protein Fluid Total Protein Vancomycin Trough Rheumatoid Factor Complement C4 Miscellaneous Test Crossmatch 01/04/17 01/05/17 01/05/17 23:31 04:00 05:46 WBC RBC Hgb Hct MCV MCH MCHC RDW Plt Count Lymph % (Auto) [place] % (Auto) Lymph # [place] # Baso # Seg Neutrophils % Seg Neuts % (Manual) Lymphocytes % (Manual) Monocytes % (Manual) Eosinophils % (Manual) Basophils % (Manual) Nucleated RBC % Seg Neutrophils # Seg Neutrophils # Man Lymphocytes # (Manual) Monocytes # (Manual) Eosinophils # (Manual) Basophils # (Manual) PT INR Fibrinogen dRVVT Confirm Interp Factor V Activity POC ABG pH POC ABG pCO2 POC ABG pO2 ABG pO2 ABG HCO3 ABG Base Excess ABG Hemoglobin Oxyhemoglobin Sodium Potassium Chloride Carbon Dioxide BUN 52 H Creatinine 1.3 H Glucose 113 H POC Glucose 123 H 118 H Lactic Acid Calcium Phosphorus 2.40 L Magnesium Direct Bilirubin AST ALT Alkaline Phosphatase Lactate Dehydrogenase Troponin T C-Reactive Protein Total Protein Albumin Prealbumin Triglycerides Cholesterol LDL Cholesterol Direct HDL Cholesterol PTH Intact Urine pH Urine WBC (Auto) Urine Creatinine Urine Total Protein Fluid Total Protein Vancomycin Trough Rheumatoid Factor Complement C4 Miscellaneous Test Crossmatch 01/05/17 01/05/17 01/05/17 11:41 17:48 23:27 WBC RBC Hgb Hct MCV MCH MCHC RDW Plt Count Lymph % (Auto) [place] % (Auto) Lymph # [place] # Baso # Seg Neutrophils % Seg Neuts % (Manual) Lymphocytes % (Manual) Monocytes % (Manual) Eosinophils % (Manual) Basophils % (Manual) Nucleated RBC % Seg Neutrophils # Seg Neutrophils # Man Lymphocytes # (Manual) Monocytes # (Manual) Eosinophils # (Manual) Basophils # (Manual) PT INR Fibrinogen dRVVT Confirm Interp Factor V Activity POC ABG pH POC ABG pCO2 POC ABG pO2 ABG pO2 ABG HCO3 ABG Base Excess ABG Hemoglobin Oxyhemoglobin Sodium Potassium Chloride Carbon Dioxide BUN Creatinine Glucose POC Glucose 163 H 142 H 155 H Lactic Acid Calcium Phosphorus Magnesium Direct Bilirubin AST ALT Alkaline Phosphatase Lactate Dehydrogenase Troponin T C-Reactive Protein Total Protein Albumin Prealbumin Triglycerides Cholesterol LDL Cholesterol Direct HDL Cholesterol PTH Intact Urine pH Urine WBC (Auto) Urine Creatinine Urine Total Protein Fluid Total Protein Vancomycin Trough Rheumatoid Factor Complement C4 Miscellaneous Test Crossmatch 01/06/17 01/06/17 01/06/17 05:20 07:35 11:18 WBC RBC Hgb Hct MCV MCH MCHC RDW Plt Count Lymph % (Auto) [place] % (Auto) Lymph # [place] # Baso # Seg Neutrophils % Seg Neuts % (Manual) Lymphocytes % (Manual) Monocytes % (Manual) Eosinophils % (Manual) Basophils % (Manual) Nucleated RBC % Seg Neutrophils # Seg Neutrophils # Man Lymphocytes # (Manual) Monocytes # (Manual) Eosinophils # (Manual) Basophils # (Manual) PT INR Fibrinogen dRVVT Confirm Interp Factor V Activity POC ABG pH POC ABG pCO2 POC ABG pO2 ABG pO2 ABG HCO3 ABG Base Excess ABG Hemoglobin Oxyhemoglobin Sodium Potassium Chloride Carbon Dioxide BUN 74 H Creatinine 1.6 H Glucose 135 H POC Glucose 108 H 149 H Lactic Acid Calcium Phosphorus Magnesium Direct Bilirubin AST ALT Alkaline Phosphatase Lactate Dehydrogenase Troponin T C-Reactive Protein Total Protein Albumin Prealbumin Triglycerides Cholesterol LDL Cholesterol Direct HDL Cholesterol PTH Intact Urine pH Urine WBC (Auto) Urine Creatinine Urine Total Protein Fluid Total Protein Vancomycin Trough Rheumatoid Factor Complement C4 Miscellaneous Test Crossmatch 01/06/17 01/07/17 01/07/17 17:17 00:23 05:31 WBC RBC Hgb Hct MCV MCH MCHC RDW Plt Count Lymph % (Auto) [place] % (Auto) Lymph # [place] # Baso # Seg Neutrophils % Seg Neuts % (Manual) Lymphocytes % (Manual) Monocytes % (Manual) Eosinophils % (Manual) Basophils % (Manual) Nucleated RBC % Seg Neutrophils # Seg Neutrophils # Man Lymphocytes # (Manual) Monocytes # (Manual) Eosinophils # (Manual) Basophils # (Manual) PT INR Fibrinogen dRVVT Confirm Interp Factor V Activity POC ABG pH POC ABG pCO2 POC ABG pO2 ABG pO2 ABG HCO3 ABG Base Excess ABG Hemoglobin Oxyhemoglobin Sodium Potassium Chloride Carbon Dioxide BUN Creatinine Glucose POC Glucose 146 H 165 H 153 H Lactic Acid Calcium Phosphorus Magnesium Direct Bilirubin AST ALT Alkaline Phosphatase Lactate Dehydrogenase Troponin T C-Reactive Protein Total Protein Albumin Prealbumin Triglycerides Cholesterol LDL Cholesterol Direct HDL Cholesterol PTH Intact Urine pH Urine WBC (Auto) Urine Creatinine Urine Total Protein Fluid Total Protein Vancomycin Trough Rheumatoid Factor Complement C4 Miscellaneous Test Crossmatch 01/07/17 01/07/17 01/07/17 06:00 11:39 17:11 WBC RBC Hgb Hct MCV MCH MCHC RDW Plt Count Lymph % (Auto) [place] % (Auto) Lymph # [place] # Baso # Seg Neutrophils % Seg Neuts % (Manual) Lymphocytes % (Manual) Monocytes % (Manual) Eosinophils % (Manual) Basophils % (Manual) Nucleated RBC % Seg Neutrophils # Seg Neutrophils # Man Lymphocytes # (Manual) Monocytes # (Manual) Eosinophils # (Manual) Basophils # (Manual) PT INR Fibrinogen dRVVT Confirm Interp Factor V Activity POC ABG pH POC ABG pCO2 POC ABG pO2 ABG pO2 ABG HCO3 ABG Base Excess ABG Hemoglobin Oxyhemoglobin Sodium Potassium Chloride Carbon Dioxide BUN 42 H Creatinine Glucose 175 H POC Glucose 163 H 163 H Lactic Acid Calcium Phosphorus 2.40 L D Magnesium Direct Bilirubin AST ALT Alkaline Phosphatase Lactate Dehydrogenase Troponin T C-Reactive Protein Total Protein Albumin Prealbumin Triglycerides Cholesterol LDL Cholesterol Direct HDL Cholesterol PTH Intact Urine pH Urine WBC (Auto) Urine Creatinine Urine Total Protein Fluid Total Protein Vancomycin Trough Rheumatoid Factor Complement C4 Miscellaneous Test Crossmatch 01/07/17 01/08/17 01/08/17 23:40 05:00 05:00 WBC 27.4 H RBC 2.27 L Hgb 6.1 L Hct 20.4 L MCV MCH 27 L MCHC RDW 17.8 H Plt Count Lymph % (Auto) [place] % (Auto) Lymph # [place] # Baso # Seg Neutrophils % Seg Neuts % (Manual) Lymphocytes % (Manual) Monocytes % (Manual) Eosinophils % (Manual) Basophils % (Manual) Nucleated RBC % Seg Neutrophils # Seg Neutrophils # Man Lymphocytes # (Manual) Monocytes # (Manual) Eosinophils # (Manual) Basophils # (Manual) PT INR Fibrinogen dRVVT Confirm Interp Factor V Activity POC ABG pH POC ABG pCO2 POC ABG pO2 ABG pO2 ABG HCO3 ABG Base Excess ABG Hemoglobin Oxyhemoglobin Sodium Potassium Chloride Carbon Dioxide 16 L D BUN 62 H Creatinine 1.6 H D Glucose 103 H POC Glucose 135 H Lactic Acid Calcium Phosphorus Magnesium Direct Bilirubin AST ALT Alkaline Phosphatase Lactate Dehydrogenase Troponin T C-Reactive Protein Total Protein Albumin Prealbumin Triglycerides Cholesterol LDL Cholesterol Direct HDL Cholesterol PTH Intact Urine pH Urine WBC (Auto) Urine Creatinine Urine Total Protein Fluid Total Protein Vancomycin Trough Rheumatoid Factor Complement C4 Miscellaneous Test Crossmatch 01/08/17 01/08/17 01/08/17 05:25 10:37 10:37 WBC RBC Hgb Hct MCV MCH MCHC RDW Plt Count Lymph % (Auto) [place] % (Auto) Lymph # [place] # Baso # Seg Neutrophils % Seg Neuts % (Manual) Lymphocytes % (Manual) Monocytes % (Manual) Eosinophils % (Manual) Basophils % (Manual) Nucleated RBC % Seg Neutrophils # Seg Neutrophils # Man Lymphocytes # (Manual) Monocytes # (Manual) Eosinophils # (Manual) Basophils # (Manual) PT INR Fibrinogen dRVVT Confirm Interp Factor V Activity POC ABG pH POC ABG pCO2 POC ABG pO2 ABG pO2 ABG HCO3 ABG Base Excess ABG Hemoglobin Oxyhemoglobin Sodium Potassium Chloride Carbon Dioxide BUN Creatinine Glucose POC Glucose 106 H Lactic Acid Calcium Phosphorus Magnesium Direct Bilirubin AST ALT Alkaline Phosphatase Lactate Dehydrogenase Troponin T C-Reactive Protein 24.40 H Total Protein Albumin Prealbumin Triglycerides Cholesterol LDL Cholesterol Direct HDL Cholesterol PTH Intact Urine pH Urine WBC (Auto) Urine Creatinine Urine Total Protein Fluid Total Protein Vancomycin Trough Rheumatoid Factor Complement C4 Miscellaneous Test Crossmatch See Detail 01/08/17 01/08/17 01/08/17 10:37 11:33 15:15 WBC RBC Hgb Hct MCV MCH MCHC RDW Plt Count Lymph % (Auto) [place] % (Auto) Lymph # [place] # Baso # Seg Neutrophils % Seg Neuts % (Manual) Lymphocytes % (Manual) Monocytes % (Manual) Eosinophils % (Manual) Basophils % (Manual) Nucleated RBC % Seg Neutrophils # Seg Neutrophils # Man Lymphocytes # (Manual) Monocytes # (Manual) Eosinophils # (Manual) Basophils # (Manual) PT INR Fibrinogen dRVVT Confirm Interp Factor V Activity POC ABG pH POC ABG pCO2 POC ABG pO2 ABG pO2 ABG HCO3 ABG Base Excess ABG Hemoglobin Oxyhemoglobin Sodium Potassium Chloride Carbon Dioxide BUN Creatinine Glucose POC Glucose 157 H Lactic Acid 9.70 H* 9.10 H* Calcium Phosphorus Magnesium Direct Bilirubin AST ALT Alkaline Phosphatase Lactate Dehydrogenase Troponin T C-Reactive Protein Total Protein Albumin Prealbumin Triglycerides Cholesterol LDL Cholesterol Direct HDL Cholesterol PTH Intact Urine pH Urine WBC (Auto) Urine Creatinine Urine Total Protein Fluid Total Protein Vancomycin Trough Rheumatoid Factor Complement C4 Miscellaneous Test Crossmatch 01/08/17 01/08/17 01/09/17 17:19 23:12 04:40 WBC RBC Hgb Hct MCV MCH MCHC RDW Plt Count Lymph % (Auto) [place] % (Auto) Lymph # [place] # Baso # Seg Neutrophils % Seg Neuts % (Manual) Lymphocytes % (Manual) Monocytes % (Manual) Eosinophils % (Manual) Basophils % (Manual) Nucleated RBC % Seg Neutrophils # Seg Neutrophils # Man Lymphocytes # (Manual) Monocytes # (Manual) Eosinophils # (Manual) Basophils # (Manual) PT INR Fibrinogen dRVVT Confirm Interp Factor V Activity POC ABG pH POC ABG pCO2 POC ABG pO2 ABG pO2 ABG HCO3 ABG Base Excess ABG Hemoglobin Oxyhemoglobin Sodium 147 H Potassium Chloride Carbon Dioxide BUN 82 H Creatinine 1.8 H Glucose 137 H POC Glucose 164 H 157 H Lactic Acid Calcium Phosphorus Magnesium Direct Bilirubin AST ALT Alkaline Phosphatase Lactate Dehydrogenase Troponin T C-Reactive Protein Total Protein Albumin Prealbumin Triglycerides Cholesterol LDL Cholesterol Direct HDL Cholesterol PTH Intact Urine pH Urine WBC (Auto) Urine Creatinine Urine Total Protein Fluid Total Protein Vancomycin Trough Rheumatoid Factor Complement C4 Miscellaneous Test Crossmatch 01/09/17 01/09/17 01/09/17 05:42 08:22 10:57 WBC RBC Hgb Hct MCV MCH MCHC RDW Plt Count Lymph % (Auto) [place] % (Auto) Lymph # [place] # Baso # Seg Neutrophils % Seg Neuts % (Manual) Lymphocytes % (Manual) Monocytes % (Manual) Eosinophils % (Manual) Basophils % (Manual) Nucleated RBC % Seg Neutrophils # Seg Neutrophils # Man Lymphocytes # (Manual) Monocytes # (Manual) Eosinophils # (Manual) Basophils # (Manual) PT INR Fibrinogen dRVVT Confirm Interp Factor V Activity POC ABG pH POC ABG pCO2 POC ABG pO2 ABG pO2 ABG HCO3 ABG Base Excess ABG Hemoglobin Oxyhemoglobin Sodium Potassium Chloride Carbon Dioxide BUN Creatinine Glucose POC Glucose 156 H 122 H Lactic Acid 2.30 H* Calcium Phosphorus Magnesium Direct Bilirubin AST ALT Alkaline Phosphatase Lactate Dehydrogenase Troponin T C-Reactive Protein Total Protein Albumin Prealbumin Triglycerides Cholesterol LDL Cholesterol Direct HDL Cholesterol PTH Intact Urine pH Urine WBC (Auto) Urine Creatinine Urine Total Protein Fluid Total Protein Vancomycin Trough Rheumatoid Factor Complement C4 Miscellaneous Test Crossmatch 01/09/17 01/09/1701/09/17 13:30 17:14 18:45 WBC RBC Hgb Hct MCV MCH MCHC RDW Plt Count Lymph % (Auto) [place] % (Auto) Lymph # [place] # Baso # Seg Neutrophils % Seg Neuts % (Manual) Lymphocytes % (Manual) Monocytes % (Manual) Eosinophils % (Manual) Basophils % (Manual) Nucleated RBC % Seg Neutrophils # Seg Neutrophils # Man Lymphocytes # (Manual) Monocytes # (Manual) Eosinophils # (Manual) Basophils # (Manual) PT INR Fibrinogen dRVVT Confirm Interp Factor V Activity POC ABG pH POC ABG pCO2 POC ABG pO2 ABG pO2 ABG HCO3 ABG Base Excess ABG Hemoglobin Oxyhemoglobin Sodium Potassium Chloride Carbon Dioxide BUN Creatinine Glucose POC Glucose 127 H Lactic Acid Calcium Phosphorus Magnesium Direct Bilirubin AST ALT Alkaline Phosphatase Lactate Dehydrogenase Troponin T C-Reactive Protein 24.70 H Total Protein Albumin Prealbumin Triglycerides Cholesterol LDL Cholesterol Direct HDL Cholesterol PTH Intact Urine pH Urine WBC (Auto) Urine Creatinine Urine Total Protein Fluid Total Protein Vancomycin Trough Rheumatoid Factor Complement C4 Miscellaneous Test Flexitest 1 H Crossmatch 01/10/17 01/10/17 01/10/17 01:21 04:00 04:00 WBC 18.1 H RBC 3.22 L Hgb 8.8 L Hct 27.0 L D MCV MCH 27 L MCHC RDW 17.0 H Plt Count Lymph % (Auto) [place] % (Auto) Lymph # [place] # Baso # Seg Neutrophils % Seg Neuts % (Manual) Lymphocytes % (Manual) Monocytes % (Manual) Eosinophils % (Manual) Basophils % (Manual) Nucleated RBC % Seg Neutrophils # Seg Neutrophils # Man Lymphocytes # (Manual) Monocytes # (Manual) Eosinophils # (Manual) Basophils # (Manual) PT INR Fibrinogen dRVVT Confirm Interp Factor V Activity POC ABG pH POC ABG pCO2 POC ABG pO2 ABG pO2 ABG HCO3 ABG Base Excess ABG Hemoglobin Oxyhemoglobin Sodium Potassium Chloride Carbon Dioxide BUN 59 H Creatinine 1.3 H Glucose 122 H POC Glucose 160 H Lactic Acid Calcium Phosphorus Magnesium Direct Bilirubin AST ALT Alkaline Phosphatase Lactate Dehydrogenase Troponin T C-Reactive Protein Total Protein Albumin Prealbumin Triglycerides Cholesterol LDL Cholesterol Direct HDL Cholesterol PTH Intact Urine pH Urine WBC (Auto) Urine Creatinine Urine Total Protein Fluid Total Protein Vancomycin Trough Rheumatoid Factor Complement C4 Miscellaneous Test Crossmatch 01/10/17 01/10/17 01/10/17 05:36 12:14 17:55 WBC RBC Hgb Hct MCV MCH MCHC RDW Plt Count Lymph % (Auto) [place] % (Auto) Lymph # [place] # Baso # Seg Neutrophils % Seg Neuts % (Manual) Lymphocytes % (Manual) Monocytes % (Manual) Eosinophils % (Manual) Basophils % (Manual) Nucleated RBC % Seg Neutrophils # Seg Neutrophils # Man Lymphocytes # (Manual) Monocytes # (Manual) Eosinophils # (Manual) Basophils # (Manual) PT INR Fibrinogen dRVVT Confirm Interp Factor V Activity POC ABG pH POC ABG pCO2 POC ABG pO2 ABG pO2 ABG HCO3 ABG Base Excess ABG Hemoglobin Oxyhemoglobin Sodium Potassium Chloride Carbon Dioxide BUN Creatinine Glucose POC Glucose 163 H 120 H 144 H Lactic Acid Calcium Phosphorus Magnesium Direct Bilirubin AST ALT Alkaline Phosphatase Lactate Dehydrogenase Troponin T C-Reactive Protein Total Protein Albumin Prealbumin Triglycerides Cholesterol LDL Cholesterol Direct HDL Cholesterol PTH Intact Urine pH Urine WBC (Auto) Urine Creatinine Urine Total Protein Fluid Total Protein Vancomycin Trough Rheumatoid Factor Complement C4 Miscellaneous Test Crossmatch 01/11/17 01/11/17 01/11/17 00:09 04:00 04:00 WBC 15.8 H RBC 3.04 L Hgb 8.2 L Hct 25.5 L MCV MCH 27 L MCHC RDW 17.3 H Plt Count Lymph % (Auto) [place] % (Auto) Lymph # [place] # Baso # Seg Neutrophils % Seg Neuts % (Manual) Lymphocytes % (Manual) Monocytes % (Manual) Eosinophils % (Manual) Basophils % (Manual) Nucleated RBC % Seg Neutrophils # Seg Neutrophils # Man Lymphocytes # (Manual) Monocytes # (Manual) Eosinophils # (Manual) Basophils # (Manual) PT INR Fibrinogen dRVVT Confirm Interp Factor V Activity POC ABG pH POC ABG pCO2 POC ABG pO2 ABG pO2 ABG HCO3 ABG Base Excess ABG Hemoglobin Oxyhemoglobin Sodium Potassium Chloride Carbon Dioxide BUN 78 H Creatinine 1.6 H Glucose 109 H POC Glucose 122 H Lactic Acid Calcium Phosphorus Magnesium Direct Bilirubin AST ALT Alkaline Phosphatase Lactate Dehydrogenase Troponin T C-Reactive Protein Total Protein Albumin Prealbumin Triglycerides Cholesterol LDL Cholesterol Direct HDL Cholesterol PTH Intact Urine pH Urine WBC (Auto) Urine Creatinine Urine Total Protein Fluid Total Protein Vancomycin Trough Rheumatoid Factor Complement C4 Miscellaneous Test Crossmatch 01/11/17 01/11/17 01/11/17 12:46 18:23 23:42 WBC RBC Hgb Hct MCV MCH MCHC RDW Plt Count Lymph % (Auto) [place] % (Auto) Lymph # [place] # Baso # Seg Neutrophils % Seg Neuts % (Manual) Lymphocytes % (Manual) Monocytes % (Manual) Eosinophils % (Manual) Basophils % (Manual) Nucleated RBC % Seg Neutrophils # Seg Neutrophils # Man Lymphocytes # (Manual) Monocytes # (Manual) Eosinophils # (Manual) Basophils # (Manual) PT INR Fibrinogen dRVVT Confirm Interp Factor V Activity POC ABG pH POC ABG pCO2 POC ABG pO2 ABG pO2 ABG HCO3 ABG Base Excess ABG Hemoglobin Oxyhemoglobin Sodium Potassium Chloride Carbon Dioxide BUN Creatinine Glucose POC Glucose 148 H 125 H 124 H Lactic Acid Calcium Phosphorus Magnesium Direct Bilirubin AST ALT Alkaline Phosphatase Lactate Dehydrogenase Troponin T C-Reactive Protein Total Protein Albumin Prealbumin Triglycerides Cholesterol LDL Cholesterol Direct HDL Cholesterol PTH Intact Urine pH Urine WBC (Auto) Urine Creatinine Urine Total Protein Fluid Total Protein Vancomycin Trough Rheumatoid Factor Complement C4 Miscellaneous Test Crossmatch 01/12/17 01/12/17 01/12/17 04:30 04:30 05:47 WBC 15.8 H RBC 3.31 L Hgb 8.9 L Hct 27.9 L MCV MCH 27 L MCHC RDW 17.4 H Plt Count Lymph % (Auto) [place] % (Auto) Lymph # [place] # Baso # Seg Neutrophils % Seg Neuts % (Manual) Lymphocytes % (Manual) Monocytes % (Manual) Eosinophils % (Manual) Basophils % (Manual) Nucleated RBC % Seg Neutrophils # Seg Neutrophils # Man Lymphocytes # (Manual) Monocytes # (Manual) Eosinophils # (Manual) Basophils # (Manual) PT INR Fibrinogen dRVVT Confirm Interp Factor V Activity POC ABG pH POC ABG pCO2 POC ABG pO2 ABG pO2 ABG HCO3 ABG Base Excess ABG Hemoglobin Oxyhemoglobin Sodium Potassium Chloride Carbon Dioxide BUN 57 H Creatinine Glucose 121 H POC Glucose 110 H Lactic Acid Calcium Phosphorus 2.10 L Magnesium Direct Bilirubin AST ALT Alkaline Phosphatase Lactate Dehydrogenase Troponin T C-Reactive Protein Total Protein Albumin Prealbumin Triglycerides Cholesterol LDL Cholesterol Direct HDL Cholesterol PTH Intact Urine pH Urine WBC (Auto) Urine Creatinine Urine Total Protein Fluid Total Protein Vancomycin Trough Rheumatoid Factor Complement C4 Miscellaneous Test Crossmatch 01/12/17 01/12/17 01/12/17 11:35 17:45 23:14 WBC RBC Hgb Hct MCV MCH MCHC RDW Plt Count Lymph % (Auto) [place] % (Auto) Lymph # [place] # Baso # Seg Neutrophils % Seg Neuts % (Manual) Lymphocytes % (Manual) Monocytes % (Manual) Eosinophils % (Manual) Basophils % (Manual) Nucleated RBC % Seg Neutrophils # Seg Neutrophils # Man Lymphocytes # (Manual) Monocytes # (Manual) Eosinophils # (Manual) Basophils # (Manual) PT INR Fibrinogen dRVVT Confirm Interp Factor V Activity POC ABG pH POC ABG pCO2 POC ABG pO2 ABG pO2 ABG HCO3 ABG Base Excess ABG Hemoglobin Oxyhemoglobin Sodium Potassium Chloride Carbon Dioxide BUN Creatinine Glucose POC Glucose 146 H 117 H 123 H Lactic Acid Calcium Phosphorus Magnesium Direct Bilirubin AST ALT Alkaline Phosphatase Lactate Dehydrogenase Troponin T C-Reactive Protein Total Protein Albumin Prealbumin Triglycerides Cholesterol LDL Cholesterol Direct HDL Cholesterol PTH Intact Urine pH Urine WBC (Auto) Urine Creatinine Urine Total Protein Fluid Total Protein Vancomycin Trough Rheumatoid Factor Complement C4 Miscellaneous Test Crossmatch 01/13/17 01/13/17 01/13/17 05:32 06:00 12:10 WBC RBC Hgb Hct MCV MCH MCHC RDW Plt Count Lymph % (Auto) [place] % (Auto) Lymph # [place] # Baso # Seg Neutrophils % Seg Neuts % (Manual) Lymphocytes % (Manual) Monocytes % (Manual) Eosinophils % (Manual) Basophils % (Manual) Nucleated RBC % Seg Neutrophils # Seg Neutrophils # Man Lymphocytes # (Manual) Monocytes # (Manual) Eosinophils # (Manual) Basophils # (Manual) PT INR Fibrinogen dRVVT Confirm Interp Factor V Activity POC ABG pH POC ABG pCO2 POC ABG pO2 ABG pO2 ABG HCO3 ABG Base Excess ABG Hemoglobin Oxyhemoglobin Sodium Potassium Chloride Carbon Dioxide BUN 80 H Creatinine 1.4 H Glucose 106 H POC Glucose 106 H Lactic Acid Calcium Phosphorus Magnesium Direct Bilirubin AST ALT Alkaline Phosphatase Lactate Dehydrogenase Troponin T C-Reactive Protein Total Protein Albumin Prealbumin Triglycerides Cholesterol LDL Cholesterol Direct HDL Cholesterol PTH Intact Urine pH Urine WBC (Auto) Urine Creatinine Urine Total Protein Fluid Total Protein 3.0 L Vancomycin Trough Rheumatoid Factor Complement C4 Miscellaneous Test Crossmatch 01/13/17 01/13/17 01/13/17 12:17 15:50 17:30 WBC RBC Hgb Hct MCV MCH MCHC RDW Plt Count Lymph % (Auto) [place] % (Auto) Lymph # [place] # Baso # Seg Neutrophils % Seg Neuts % (Manual) Lymphocytes % (Manual) Monocytes % (Manual) Eosinophils % (Manual) Basophils % (Manual) Nucleated RBC % Seg Neutrophils # Seg Neutrophils # Man Lymphocytes # (Manual) Monocytes # (Manual) Eosinophils # (Manual) Basophils # (Manual) PT 15.4 H INR 1.16 H Fibrinogen dRVVT Confirm Interp Factor V Activity POC ABG pH POC ABG pCO2 POC ABG pO2 ABG pO2 ABG HCO3 ABG Base Excess ABG Hemoglobin Oxyhemoglobin Sodium Potassium Chloride Carbon Dioxide BUN Creatinine Glucose POC Glucose 168 H 110 H Lactic Acid Calcium Phosphorus Magnesium Direct Bilirubin AST ALT Alkaline Phosphatase Lactate Dehydrogenase Troponin T C-Reactive Protein Total Protein Albumin Prealbumin Triglycerides Cholesterol LDL Cholesterol Direct HDL Cholesterol PTH Intact Urine pH Urine WBC (Auto) Urine Creatinine Urine Total Protein Fluid Total Protein Vancomycin Trough Rheumatoid Factor Complement C4 Miscellaneous Test Crossmatch 01/13/17 01/14/17 01/14/17 23:42 05:24 05:30 WBC RBC Hgb Hct MCV MCH MCHC RDW Plt Count Lymph % (Auto) [place] % (Auto) Lymph # [place] # Baso # Seg Neutrophils % Seg Neuts % (Manual) Lymphocytes % (Manual) Monocytes % (Manual) Eosinophils % (Manual) Basophils % (Manual) Nucleated RBC % Seg Neutrophils # Seg Neutrophils # Man Lymphocytes # (Manual) Monocytes # (Manual) Eosinophils # (Manual) Basophils # (Manual) PT INR Fibrinogen dRVVT Confirm Interp Factor V Activity POC ABG pH POC ABG pCO2 POC ABG pO2 ABG pO2 ABG HCO3 ABG Base Excess ABG Hemoglobin Oxyhemoglobin Sodium Potassium Chloride Carbon Dioxide BUN 58 H Creatinine Glucose 114 H POC Glucose 155 H 121 H Lactic Acid Calcium Phosphorus Magnesium Direct Bilirubin AST ALT Alkaline Phosphatase Lactate Dehydrogenase Troponin T C-Reactive Protein Total Protein Albumin Prealbumin Triglycerides Cholesterol LDL Cholesterol Direct HDL Cholesterol PTH Intact Urine pH Urine WBC (Auto) Urine Creatinine Urine Total Protein Fluid Total Protein Vancomycin Trough Rheumatoid Factor Complement C4 Miscellaneous Test Crossmatch 01/14/17 01/14/17 01/15/17 12:48 17:36 00:15 WBC RBC Hgb Hct MCV MCH MCHC RDW Plt Count Lymph % (Auto) [place] % (Auto) Lymph # [place] # Baso # Seg Neutrophils % Seg Neuts % (Manual) Lymphocytes % (Manual) Monocytes % (Manual) Eosinophils % (Manual) Basophils % (Manual) Nucleated RBC % Seg Neutrophils # Seg Neutrophils # Man Lymphocytes # (Manual) Monocytes # (Manual) Eosinophils # (Manual) Basophils # (Manual) PT INR Fibrinogen dRVVT Confirm Interp Factor V Activity POC ABG pH POC ABG pCO2 POC ABG pO2 ABG pO2 ABG HCO3 ABG Base Excess ABG Hemoglobin Oxyhemoglobin Sodium Potassium Chloride Carbon Dioxide BUN Creatinine Glucose POC Glucose 130 H 135 H 132 H Lactic Acid Calcium Phosphorus Magnesium Direct Bilirubin AST ALT Alkaline Phosphatase Lactate Dehydrogenase Troponin T C-Reactive Protein Total Protein Albumin Prealbumin Triglycerides Cholesterol LDL Cholesterol Direct HDL Cholesterol PTH Intact Urine pH Urine WBC (Auto) Urine Creatinine Urine Total Protein Fluid Total Protein Vancomycin Trough Rheumatoid Factor Complement C4 Miscellaneous Test Crossmatch 01/15/17 01/15/17 01/15/17 05:01 11:55 12:45 WBC 16.2 H RBC 3.00 L Hgb 8.1 L Hct 25.4 L MCV MCH 27 L MCHC RDW 17.6 H Plt Count Lymph % (Auto) 11.7 L [place] % (Auto) 7.8 H Lymph # [place] # 1.3 H Baso # Seg Neutrophils % 80.1 H Seg Neuts % (Manual) Lymphocytes % (Manual) Monocytes % (Manual) Eosinophils % (Manual) Basophils % (Manual) Nucleated RBC % Seg Neutrophils # 13.0 H Seg Neutrophils # Man Lymphocytes # (Manual) Monocytes # (Manual) Eosinophils # (Manual) Basophils # (Manual) PT INR Fibrinogen dRVVT Confirm Interp Factor V Activity POC ABG pH POC ABG pCO2 POC ABG pO2 ABG pO2 ABG HCO3 ABG Base Excess ABG Hemoglobin Oxyhemoglobin Sodium Potassium Chloride Carbon Dioxide BUN Creatinine Glucose POC Glucose 126 H 125 H Lactic Acid Calcium Phosphorus Magnesium Direct Bilirubin AST ALT Alkaline Phosphatase Lactate Dehydrogenase Troponin T C-Reactive Protein Total Protein Albumin Prealbumin Triglycerides Cholesterol LDL Cholesterol Direct HDL Cholesterol PTH Intact Urine pH Urine WBC (Auto) Urine Creatinine Urine Total Protein Fluid Total Protein Vancomycin Trough Rheumatoid Factor Complement C4 Miscellaneous Test Crossmatch 01/15/17 01/15/17 01/15/17 12:45 17:31 23:39 WBC RBC Hgb Hct MCV MCH MCHC RDW Plt Count Lymph % (Auto) [place] % (Auto) Lymph # [place] # Baso # Seg Neutrophils % Seg Neuts % (Manual) Lymphocytes % (Manual) Monocytes % (Manual) Eosinophils % (Manual) Basophils % (Manual) Nucleated RBC % Seg Neutrophils # Seg Neutrophils # Man Lymphocytes # (Manual) Monocytes # (Manual) Eosinophils # (Manual) Basophils # (Manual) PT INR Fibrinogen dRVVT Confirm Interp Factor V Activity POC ABG pH POC ABG pCO2 POC ABG pO2 ABG pO2 ABG HCO3 ABG Base Excess ABG Hemoglobin Oxyhemoglobin Sodium 136 L Potassium Chloride Carbon Dioxide BUN 87 H Creatinine 1.7 H Glucose 108 H POC Glucose 129 H 112 H Lactic Acid Calcium Phosphorus Magnesium Direct Bilirubin AST ALT Alkaline Phosphatase Lactate Dehydrogenase Troponin T C-Reactive Protein Total Protein Albumin Prealbumin Triglycerides Cholesterol LDL Cholesterol Direct HDL Cholesterol PTH Intact Urine pH Urine WBC (Auto) Urine Creatinine Urine Total Protein Fluid Total Protein Vancomycin Trough Rheumatoid Factor Complement C4 Miscellaneous Test Crossmatch 01/16/17 01/16/17 01/16/17 05:23 11:42 12:32 WBC RBC Hgb Hct MCV MCH MCHC RDW Plt Count Lymph % (Auto) [place] % (Auto) Lymph # [place] # Baso # Seg Neutrophils % Seg Neuts % (Manual) Lymphocytes % (Manual) Monocytes % (Manual) Eosinophils % (Manual) Basophils % (Manual) Nucleated RBC % Seg Neutrophils # Seg Neutrophils # Man Lymphocytes # (Manual) Monocytes # (Manual) Eosinophils # (Manual) Basophils # (Manual) PT INR Fibrinogen dRVVT Confirm Interp Factor V Activity POC ABG pH 7.499 H POC ABG pCO2 30.9 L POC ABG pO2 51 L ABG pO2 ABG HCO3 ABG Base Excess ABG Hemoglobin Oxyhemoglobin Sodium Potassium Chloride Carbon Dioxide BUN Creatinine Glucose POC Glucose 118 H 133 H Lactic Acid Calcium Phosphorus Magnesium Direct Bilirubin AST ALT Alkaline Phosphatase Lactate Dehydrogenase Troponin T C-Reactive Protein Total Protein Albumin Prealbumin Triglycerides Cholesterol LDL Cholesterol Direct HDL Cholesterol PTH Intact Urine pH Urine WBC (Auto) Urine Creatinine Urine Total Protein Fluid Total Protein Vancomycin Trough Rheumatoid Factor Complement C4 Miscellaneous Test Crossmatch 01/16/17 01/16/17 01/16/17 17:52 23:57 Unknown WBC RBC Hgb Hct MCV MCH MCHC RDW Plt Count Lymph % (Auto) [place] % (Auto) Lymph # [place] # Baso # Seg Neutrophils % Seg Neuts % (Manual) Lymphocytes % (Manual) Monocytes % (Manual) Eosinophils % (Manual) Basophils % (Manual) Nucleated RBC % Seg Neutrophils # Seg Neutrophils # Man Lymphocytes # (Manual) Monocytes # (Manual) Eosinophils # (Manual) Basophils # (Manual) PT INR Fibrinogen dRVVT Confirm Interp Factor V Activity POC ABG pH POC ABG pCO2 POC ABG pO2 ABG pO2 ABG HCO3 ABG Base Excess ABG Hemoglobin Oxyhemoglobin Sodium 135 L Potassium Chloride Carbon Dioxide BUN 101 H Creatinine 1.8 H Glucose 117 H POC Glucose 130 H 143 H Lactic Acid Calcium Phosphorus 5.80 H Magnesium Direct Bilirubin AST ALT Alkaline Phosphatase Lactate Dehydrogenase Troponin T C-Reactive Protein Total Protein Albumin Prealbumin Triglycerides Cholesterol LDL Cholesterol Direct HDL Cholesterol PTH Intact Urine pH Urine WBC (Auto) Urine Creatinine Urine Total Protein Fluid Total Protein Vancomycin Trough Rheumatoid Factor Complement C4 Miscellaneous Test Crossmatch 01/17/17 01/17/17 01/17/17 05:30 05:46 11:49 WBC RBC Hgb Hct MCV MCH MCHC RDW Plt Count Lymph % (Auto) [place] % (Auto) Lymph # [place] # Baso # Seg Neutrophils % Seg Neuts % (Manual) Lymphocytes % (Manual) Monocytes % (Manual) Eosinophils % (Manual) Basophils % (Manual) Nucleated RBC % Seg Neutrophils # Seg Neutrophils # Man Lymphocytes # (Manual) Monocytes # (Manual) Eosinophils # (Manual) Basophils # (Manual) PT INR Fibrinogen dRVVT Confirm Interp Factor V Activity POC ABG pH POC ABG pCO2 POC ABG pO2 ABG pO2 ABG HCO3 ABG Base Excess ABG Hemoglobin Oxyhemoglobin Sodium 134 L Potassium Chloride 95.8 L Carbon Dioxide BUN 66 H Creatinine 1.3 H Glucose 138 H POC Glucose 147 H 124 H Lactic Acid Calcium Phosphorus Magnesium Direct Bilirubin AST ALT Alkaline Phosphatase 254 H Lactate Dehydrogenase Troponin T C-Reactive Protein Total Protein Albumin 1.3 L Prealbumin Triglycerides Cholesterol LDL Cholesterol Direct HDL Cholesterol PTH Intact Urine pH Urine WBC (Auto) Urine Creatinine Urine Total Protein Fluid Total Protein Vancomycin Trough Rheumatoid Factor Complement C4 Miscellaneous Test Crossmatch 01/17/17 01/17/17 01/18/17 17:30 23:41 05:15 WBC RBC Hgb Hct MCV MCH MCHC RDW Plt Count Lymph % (Auto) [place] % (Auto) Lymph # [place] # Baso # Seg Neutrophils % Seg Neuts % (Manual) Lymphocytes % (Manual) Monocytes % (Manual) Eosinophils % (Manual) Basophils % (Manual) Nucleated RBC % Seg Neutrophils # Seg Neutrophils # Man Lymphocytes # (Manual) Monocytes # (Manual) Eosinophils # (Manual) Basophils # (Manual) PT INR Fibrinogen dRVVT Confirm Interp Factor V Activity POC ABG pH POC ABG pCO2 POC ABG pO2 ABG pO2 ABG HCO3 ABG Base Excess ABG Hemoglobin Oxyhemoglobin Sodium Potassium Chloride Carbon Dioxide BUN 89 H Creatinine 1.7 H Glucose 118 H POC Glucose 137 H 119 H Lactic Acid Calcium Phosphorus Magnesium Direct Bilirubin AST ALT Alkaline Phosphatase Lactate Dehydrogenase Troponin T C-Reactive Protein Total Protein Albumin Prealbumin Triglycerides Cholesterol LDL Cholesterol Direct HDL Cholesterol PTH Intact Urine pH Urine WBC (Auto) Urine Creatinine Urine Total Protein Fluid Total Protein Vancomycin Trough Rheumatoid Factor Complement C4 Miscellaneous Test Crossmatch 01/18/17 01/18/17 01/18/17 05:19 12:16 18:11 WBC RBC Hgb Hct MCV MCH MCHC RDW Plt Count Lymph % (Auto) [place] % (Auto) Lymph # [place] # Baso # Seg Neutrophils % Seg Neuts % (Manual) Lymphocytes % (Manual) Monocytes % (Manual) Eosinophils % (Manual) Basophils % (Manual) Nucleated RBC % Seg Neutrophils # Seg Neutrophils # Man Lymphocytes # (Manual) Monocytes # (Manual) Eosinophils # (Manual) Basophils # (Manual) PT INR Fibrinogen dRVVT Confirm Interp Factor V Activity POC ABG pH POC ABG pCO2 POC ABG pO2 ABG pO2 ABG HCO3 ABG Base Excess ABG Hemoglobin Oxyhemoglobin Sodium Potassium Chloride Carbon Dioxide BUN Creatinine Glucose POC Glucose 134 H 188 H 113 H Lactic Acid Calcium Phosphorus Magnesium Direct Bilirubin AST ALT Alkaline Phosphatase Lactate Dehydrogenase Troponin T C-Reactive Protein Total Protein Albumin Prealbumin Triglycerides Cholesterol LDL Cholesterol Direct HDL Cholesterol PTH Intact Urine pH Urine WBC (Auto) Urine Creatinine Urine Total Protein Fluid Total Protein Vancomycin Trough Rheumatoid Factor Complement C4 Miscellaneous Test Crossmatch 01/19/17 01/19/17 01/19/17 00:00 05:30 05:36 WBC RBC Hgb Hct MCV MCH MCHC RDW Plt Count Lymph % (Auto) [place] % (Auto) Lymph # [place] # Baso # Seg Neutrophils % Seg Neuts % (Manual) Lymphocytes % (Manual) Monocytes % (Manual) Eosinophils % (Manual) Basophils % (Manual) Nucleated RBC % Seg Neutrophils # Seg Neutrophils # Man Lymphocytes # (Manual) Monocytes # (Manual) Eosinophils # (Manual) Basophils # (Manual) PT INR Fibrinogen dRVVT Confirm Interp Factor V Activity POC ABG pH POC ABG pCO2 POC ABG pO2 ABG pO2 ABG HCO3 ABG Base Excess ABG Hemoglobin Oxyhemoglobin Sodium Potassium Chloride Carbon Dioxide BUN 70 H Creatinine 1.5 H Glucose 121 H POC Glucose 137 H 155 H Lactic Acid Calcium Phosphorus 2.10 L D Magnesium Direct Bilirubin AST ALT Alkaline Phosphatase Lactate Dehydrogenase Troponin T C-Reactive Protein Total Protein Albumin Prealbumin Triglycerides Cholesterol LDL Cholesterol Direct HDL Cholesterol PTH Intact Urine pH Urine WBC (Auto) Urine Creatinine Urine Total Protein Fluid Total Protein Vancomycin Trough Rheumatoid Factor Complement C4 Miscellaneous Test Crossmatch 01/19/17 01/19/17 01/19/17 11:59 15:32 17:57 WBC RBC Hgb Hct MCV MCH MCHC RDW Plt Count Lymph % (Auto) [place] % (Auto) Lymph # [place] # Baso # Seg Neutrophils % Seg Neuts % (Manual) Lymphocytes % (Manual) Monocytes % (Manual) Eosinophils % (Manual) Basophils % (Manual) Nucleated RBC % Seg Neutrophils # Seg Neutrophils # Man Lymphocytes # (Manual) Monocytes # (Manual) Eosinophils # (Manual) Basophils # (Manual) PT INR Fibrinogen dRVVT Confirm Interp Factor V Activity POC ABG pH POC ABG pCO2 33.1 L POC ABG pO2 76 L ABG pO2 ABG HCO3 ABG Base Excess ABG Hemoglobin Oxyhemoglobin Sodium Potassium Chloride Carbon Dioxide BUN Creatinine Glucose POC Glucose 156 H 129 H Lactic Acid Calcium Phosphorus Magnesium Direct Bilirubin AST ALT Alkaline Phosphatase Lactate Dehydrogenase Troponin T C-Reactive Protein Total Protein Albumin Prealbumin Triglycerides Cholesterol LDL Cholesterol Direct HDL Cholesterol PTH Intact Urine pH Urine WBC (Auto) Urine Creatinine Urine Total Protein Fluid Total Protein Vancomycin Trough Rheumatoid Factor Complement C4 Miscellaneous Test Crossmatch 01/19/17 01/20/17 01/20/17 23:49 04:00 05:21 WBC RBC Hgb Hct MCV MCH MCHC RDW Plt Count Lymph % (Auto) [place] % (Auto) Lymph # [place] # Baso # Seg Neutrophils % Seg Neuts % (Manual) Lymphocytes % (Manual) Monocytes % (Manual) Eosinophils % (Manual) Basophils % (Manual) Nucleated RBC % Seg Neutrophils # Seg Neutrophils # Man Lymphocytes # (Manual) Monocytes # (Manual) Eosinophils # (Manual) Basophils # (Manual) PT INR Fibrinogen dRVVT Confirm Interp Factor V Activity POC ABG pH POC ABG pCO2 POC ABG pO2 ABG pO2 ABG HCO3 ABG Base Excess ABG Hemoglobin Oxyhemoglobin Sodium Potassium Chloride Carbon Dioxide BUN 96 H Creatinine 1.9 H Glucose 106 H POC Glucose 125 H 130 H Lactic Acid Calcium Phosphorus 2.40 L Magnesium Direct Bilirubin AST ALT Alkaline Phosphatase Lactate Dehydrogenase Troponin T C-Reactive Protein Total Protein Albumin Prealbumin Triglycerides Cholesterol LDL Cholesterol Direct HDL Cholesterol PTH Intact Urine pH Urine WBC (Auto) Urine Creatinine Urine Total Protein Fluid Total Protein Vancomycin Trough Rheumatoid Factor Complement C4 Miscellaneous Test Crossmatch 01/20/17 01/20/17 01/20/17 11:58 12:17 17:26 WBC RBC Hgb Hct MCV MCH MCHC RDW Plt Count Lymph % (Auto) [place] % (Auto) Lymph # [place] # Baso # Seg Neutrophils % Seg Neuts % (Manual) Lymphocytes % (Manual) Monocytes % (Manual) Eosinophils % (Manual) Basophils % (Manual) Nucleated RBC % Seg Neutrophils # Seg Neutrophils # Man Lymphocytes # (Manual) Monocytes # (Manual) Eosinophils # (Manual) Basophils # (Manual) PT INR Fibrinogen dRVVT Confirm Interp Factor V Activity POC ABG pH POC ABG pCO2 POC ABG pO2 70 L ABG pO2 ABG HCO3 ABG Base Excess ABG Hemoglobin Oxyhemoglobin Sodium Potassium Chloride Carbon Dioxide BUN Creatinine Glucose POC Glucose 118 H 154 H Lactic Acid Calcium Phosphorus Magnesium Direct Bilirubin AST ALT Alkaline Phosphatase Lactate Dehydrogenase Troponin T C-Reactive Protein Total Protein Albumin Prealbumin Triglycerides Cholesterol LDL Cholesterol Direct HDL Cholesterol PTH Intact Urine pH Urine WBC (Auto) Urine Creatinine Urine Total Protein Fluid Total Protein Vancomycin Trough Rheumatoid Factor Complement C4 Miscellaneous Test Crossmatch 01/21/17 01/21/17 01/21/17 04:00 04:56 11:46 WBC RBC Hgb Hct MCV MCH MCHC RDW Plt Count Lymph % (Auto) [place] % (Auto) Lymph # [place] # Baso # Seg Neutrophils % Seg Neuts % (Manual) Lymphocytes % (Manual) Monocytes % (Manual) Eosinophils % (Manual) Basophils % (Manual) Nucleated RBC % Seg Neutrophils # Seg Neutrophils # Man Lymphocytes # (Manual) Monocytes # (Manual) Eosinophils # (Manual) Basophils # (Manual) PT INR Fibrinogen dRVVT Confirm Interp Factor V Activity POC ABG pH POC ABG pCO2 POC ABG pO2 ABG pO2 ABG HCO3 ABG Base Excess ABG Hemoglobin Oxyhemoglobin Sodium Potassium 3.5 L Chloride 97.4 L Carbon Dioxide BUN 66 H Creatinine 1.4 H Glucose POC Glucose 116 H 106 H Lactic Acid Calcium Phosphorus 2.10 L Magnesium Direct Bilirubin AST ALT Alkaline Phosphatase Lactate Dehydrogenase Troponin T C-Reactive Protein Total Protein Albumin Prealbumin Triglycerides Cholesterol LDL Cholesterol Direct HDL Cholesterol PTH Intact Urine pH Urine WBC (Auto) Urine Creatinine Urine Total Protein Fluid Total Protein Vancomycin Trough Rheumatoid Factor Complement C4 Miscellaneous Test Crossmatch 01/21/17 01/21/17 01/22/17 17:25 23:49 05:35 WBC RBC Hgb Hct MCV MCH MCHC RDW Plt Count Lymph % (Auto) [place] % (Auto) Lymph # [place] # Baso # Seg Neutrophils % Seg Neuts % (Manual) Lymphocytes % (Manual) Monocytes % (Manual) Eosinophils % (Manual) Basophils % (Manual) Nucleated RBC % Seg Neutrophils # Seg Neutrophils # Man Lymphocytes # (Manual) Monocytes # (Manual) Eosinophils # (Manual) Basophils # (Manual) PT INR Fibrinogen dRVVT Confirm Interp Factor V Activity POC ABG pH POC ABG pCO2 POC ABG pO2 ABG pO2 ABG HCO3 ABG Base Excess ABG Hemoglobin Oxyhemoglobin Sodium Potassium Chloride Carbon Dioxide BUN Creatinine Glucose POC Glucose 106 H 133 H 107 H Lactic Acid Calcium Phosphorus Magnesium Direct Bilirubin AST ALT Alkaline Phosphatase Lactate Dehydrogenase Troponin T C-Reactive Protein Total Protein Albumin Prealbumin Triglycerides Cholesterol LDL Cholesterol Direct HDL Cholesterol PTH Intact Urine pH Urine WBC (Auto) Urine Creatinine Urine Total Protein Fluid Total Protein Vancomycin Trough Rheumatoid Factor Complement C4 Miscellaneous Test Crossmatch 01/22/17 01/22/17 01/22/17 07:20 07:20 11:31 WBC RBC 2.75 L Hgb 7.5 L Hct 22.7 L MCV MCH 27 L MCHC RDW 17.5 H Plt Count Lymph % (Auto) [place] % (Auto) Lymph # [place] # Baso # Seg Neutrophils % Seg Neuts % (Manual) Lymphocytes % (Manual) Monocytes % (Manual) Eosinophils % (Manual) Basophils % (Manual) Nucleated RBC % Seg Neutrophils # Seg Neutrophils # Man Lymphocytes # (Manual) Monocytes # (Manual) Eosinophils # (Manual) Basophils # (Manual) PT INR Fibrinogen dRVVT Confirm Interp Factor V Activity POC ABG pH POC ABG pCO2 POC ABG pO2 ABG pO2 ABG HCO3 ABG Base Excess ABG Hemoglobin Oxyhemoglobin Sodium Potassium 3.3 L Chloride Carbon Dioxide BUN 42 H Creatinine Glucose 105 H POC Glucose 124 H Lactic Acid Calcium Phosphorus 1.70 L Magnesium Direct Bilirubin AST ALT Alkaline Phosphatase Lactate Dehydrogenase Troponin T C-Reactive Protein Total Protein Albumin Prealbumin Triglycerides Cholesterol LDL Cholesterol Direct HDL Cholesterol PTH Intact Urine pH Urine WBC (Auto) Urine Creatinine Urine Total Protein Fluid Total Protein Vancomycin Trough Rheumatoid Factor Complement C4 Miscellaneous Test Crossmatch 01/22/17 01/22/17 01/23/17 17:16 23:35 05:35 WBC RBC Hgb Hct MCV MCH MCHC RDW Plt Count Lymph % (Auto) [place] % (Auto) Lymph # [place] # Baso # Seg Neutrophils % Seg Neuts % (Manual) Lymphocytes % (Manual) Monocytes % (Manual) Eosinophils % (Manual) Basophils % (Manual) Nucleated RBC % Seg Neutrophils # Seg Neutrophils # Man Lymphocytes # (Manual) Monocytes # (Manual) Eosinophils # (Manual) Basophils # (Manual) PT INR Fibrinogen dRVVT Confirm Interp Factor V Activity POC ABG pH POC ABG pCO2 POC ABG pO2 ABG pO2 ABG HCO3 ABG Base Excess ABG Hemoglobin Oxyhemoglobin Sodium Potassium Chloride Carbon Dioxide BUN Creatinine Glucose POC Glucose 135 H 120 H 111 H Lactic Acid Calcium Phosphorus Magnesium Direct Bilirubin AST ALT Alkaline Phosphatase Lactate Dehydrogenase Troponin T C-Reactive Protein Total Protein Albumin Prealbumin Triglycerides Cholesterol LDL Cholesterol Direct HDL Cholesterol PTH Intact Urine pH Urine WBC (Auto) Urine Creatinine Urine Total Protein Fluid Total Protein Vancomycin Trough Rheumatoid Factor Complement C4 Miscellaneous Test Crossmatch 01/23/17 01/23/17 01/23/17 06:10 17:27 23:44 WBC RBC Hgb Hct MCV MCH MCHC RDW Plt Count Lymph % (Auto) [place] % (Auto) Lymph # [place] # Baso # Seg Neutrophils % Seg Neuts % (Manual) Lymphocytes % (Manual) Monocytes % (Manual) Eosinophils % (Manual) Basophils % (Manual) Nucleated RBC % Seg Neutrophils # Seg Neutrophils # Man Lymphocytes # (Manual) Monocytes # (Manual) Eosinophils # (Manual) Basophils # (Manual) PT INR Fibrinogen dRVVT Confirm Interp Factor V Activity POC ABG pH POC ABG pCO2 POC ABG pO2 ABG pO2 ABG HCO3 ABG Base Excess ABG Hemoglobin Oxyhemoglobin Sodium Potassium 3.3 L Chloride Carbon Dioxide BUN 66 H Creatinine 1.3 H Glucose 109 H POC Glucose 120 H 115 H Lactic Acid Calcium Phosphorus 2.20 L D Magnesium Direct Bilirubin AST ALT Alkaline Phosphatase Lactate Dehydrogenase Troponin T C-Reactive Protein Total Protein Albumin Prealbumin Triglycerides Cholesterol LDL Cholesterol Direct HDL Cholesterol PTH Intact Urine pH Urine WBC (Auto) Urine Creatinine Urine Total Protein Fluid Total Protein Vancomycin Trough Rheumatoid Factor Complement C4 Miscellaneous Test Crossmatch 01/24/17 01/24/17 01/24/17 05:19 05:50 12:19 WBC RBC Hgb Hct MCV MCH MCHC RDW Plt Count Lymph % (Auto) [place] % (Auto) Lymph # [place] # Baso # Seg Neutrophils % Seg Neuts % (Manual) Lymphocytes % (Manual) Monocytes % (Manual) Eosinophils % (Manual) Basophils % (Manual) Nucleated RBC % Seg Neutrophils # Seg Neutrophils # Man Lymphocytes # (Manual) Monocytes # (Manual) Eosinophils # (Manual) Basophils # (Manual) PT INR Fibrinogen dRVVT Confirm Interp Factor V Activity POC ABG pH POC ABG pCO2 POC ABG pO2 ABG pO2 ABG HCO3 ABG Base Excess ABG Hemoglobin Oxyhemoglobin Sodium Potassium Chloride Carbon Dioxide BUN 47 H Creatinine Glucose 117 H POC Glucose 126 H 119 H Lactic Acid Calcium Phosphorus 2.30 L Magnesium 1.60 L Direct Bilirubin AST ALT Alkaline Phosphatase Lactate Dehydrogenase Troponin T C-Reactive Protein Total Protein Albumin Prealbumin Triglycerides Cholesterol LDL Cholesterol Direct HDL Cholesterol PTH Intact Urine pH Urine WBC (Auto) Urine Creatinine Urine Total Protein Fluid Total Protein Vancomycin Trough Rheumatoid Factor Complement C4 Miscellaneous Test Crossmatch 01/24/17 01/25/17 01/25/17 17:08 00:37 04:00 WBC RBC Hgb Hct MCV MCH MCHC RDW Plt Count Lymph % (Auto) [place] % (Auto) Lymph # [place] # Baso # Seg Neutrophils % Seg Neuts % (Manual) Lymphocytes % (Manual) Monocytes % (Manual) Eosinophils % (Manual) Basophils % (Manual) Nucleated RBC % Seg Neutrophils # Seg Neutrophils # Man Lymphocytes # (Manual) Monocytes # (Manual) Eosinophils # (Manual) Basophils # (Manual) PT INR Fibrinogen dRVVT Confirm Interp Factor V Activity POC ABG pH POC ABG pCO2 POC ABG pO2 ABG pO2 ABG HCO3 ABG Base Excess ABG Hemoglobin Oxyhemoglobin Sodium Potassium Chloride Carbon Dioxide BUN 72 H Creatinine 1.3 H Glucose POC Glucose 127 H 110 H Lactic Acid Calcium Phosphorus Magnesium Direct Bilirubin AST ALT Alkaline Phosphatase Lactate Dehydrogenase Troponin T C-Reactive Protein Total Protein Albumin Prealbumin Triglycerides Cholesterol LDL Cholesterol Direct HDL Cholesterol PTH Intact Urine pH Urine WBC (Auto) Urine Creatinine Urine Total Protein Fluid Total Protein Vancomycin Trough Rheumatoid Factor Complement C4 Miscellaneous Test Crossmatch 01/25/17 01/25/17 01/25/17 04:00 11:15 13:05 WBC RBC 2.49 L Hgb 6.7 L Hct 20.9 L MCV MCH 27 L MCHC RDW 18.8 H Plt Count Lymph % (Auto) [place] % (Auto) 10.1 H Lymph # [place] # 1.0 H Baso # Seg Neutrophils % Seg Neuts % (Manual) Lymphocytes % (Manual) Monocytes % (Manual) Eosinophils % (Manual) Basophils % (Manual) Nucleated RBC % Seg Neutrophils # Seg Neutrophils # Man Lymphocytes # (Manual) Monocytes # (Manual) Eosinophils # (Manual) Basophils # (Manual) PT INR Fibrinogen dRVVT Confirm Interp Factor V Activity POC ABG pH POC ABG pCO2 POC ABG pO2 ABG pO2 ABG HCO3 ABG Base Excess ABG Hemoglobin Oxyhemoglobin Sodium Potassium Chloride Carbon Dioxide BUN Creatinine Glucose POC Glucose 128 H Lactic Acid Calcium Phosphorus Magnesium Direct Bilirubin AST ALT Alkaline Phosphatase Lactate Dehydrogenase Troponin T C-Reactive Protein Total Protein Albumin Prealbumin Triglycerides Cholesterol LDL Cholesterol Direct HDL Cholesterol PTH Intact Urine pH Urine WBC (Auto) Urine Creatinine Urine Total Protein Fluid Total Protein Vancomycin Trough Rheumatoid Factor Complement C4 Miscellaneous Test Crossmatch See Detail 01/25/17 01/25/17 01/26/17 18:02 23:07 01:20 WBC RBC Hgb Hct MCV MCH MCHC RDW Plt Count Lymph % (Auto) [place] % (Auto) Lymph # [place] # Baso # Seg Neutrophils % Seg Neuts % (Manual) Lymphocytes % (Manual) Monocytes % (Manual) Eosinophils % (Manual) Basophils % (Manual) Nucleated RBC % Seg Neutrophils # Seg Neutrophils # Man Lymphocytes # (Manual) Monocytes # (Manual) Eosinophils # (Manual) Basophils # (Manual) PT INR Fibrinogen dRVVT Confirm Interp Factor V Activity POC ABG pH POC ABG pCO2 POC ABG pO2 ABG pO2 ABG HCO3 ABG Base Excess ABG Hemoglobin Oxyhemoglobin Sodium Potassium Chloride Carbon Dioxide BUN Creatinine Glucose POC Glucose 120 H 123 H 112 H Lactic Acid Calcium Phosphorus Magnesium Direct Bilirubin AST ALT Alkaline Phosphatase Lactate Dehydrogenase Troponin T C-Reactive Protein Total Protein Albumin Prealbumin Triglycerides Cholesterol LDL Cholesterol Direct HDL Cholesterol PTH Intact Urine pH Urine WBC (Auto) Urine Creatinine Urine Total Protein Fluid Total Protein Vancomycin Trough Rheumatoid Factor Complement C4 Miscellaneous Test Crossmatch 01/26/17 01/26/17 01/26/17 04:20 04:20 11:23 WBC 13.1 H RBC 3.28 L Hgb 9.0 L Hct 26.9 L D MCV MCH 27 L MCHC RDW 17.2 H Plt Count Lymph % (Auto) [place] % (Auto) 9.0 H Lymph # [place] # 1.2 H Baso # Seg Neutrophils % 73.1 H Seg Neuts % (Manual) Lymphocytes % (Manual) Monocytes % (Manual) Eosinophils % (Manual) Basophils % (Manual) Nucleated RBC % Seg Neutrophils # 9.6 H Seg Neutrophils # Man Lymphocytes # (Manual) Monocytes # (Manual) Eosinophils # (Manual) Basophils # (Manual) PT INR Fibrinogen dRVVT Confirm Interp Factor V Activity POC ABG pH POC ABG pCO2 POC ABG pO2 ABG pO2 ABG HCO3 ABG Base Excess ABG Hemoglobin Oxyhemoglobin Sodium Potassium Chloride Carbon Dioxide BUN 51 H Creatinine Glucose 117 H POC Glucose 125 H Lactic Acid Calcium Phosphorus Magnesium Direct Bilirubin AST ALT Alkaline Phosphatase Lactate Dehydrogenase Troponin T C-Reactive Protein Total Protein Albumin Prealbumin Triglycerides Cholesterol LDL Cholesterol Direct HDL Cholesterol PTH Intact Urine pH Urine WBC (Auto) Urine Creatinine Urine Total Protein Fluid Total Protein Vancomycin Trough Rheumatoid Factor Complement C4 Miscellaneous Test Crossmatch 01/26/17 01/27/17 01/27/17 17:11 00:30 04:00 WBC RBC Hgb Hct MCV MCH MCHC RDW Plt Count Lymph % (Auto) [place] % (Auto) Lymph # [place] # Baso # Seg Neutrophils % Seg Neuts % (Manual) Lymphocytes % (Manual) Monocytes % (Manual) Eosinophils % (Manual) Basophils % (Manual) Nucleated RBC % Seg Neutrophils # Seg Neutrophils # Man Lymphocytes # (Manual) Monocytes # (Manual) Eosinophils # (Manual) Basophils # (Manual) PT INR Fibrinogen dRVVT Confirm Interp Factor V Activity POC ABG pH POC ABG pCO2 POC ABG pO2 ABG pO2 ABG HCO3 ABG Base Excess ABG Hemoglobin Oxyhemoglobin Sodium Potassium Chloride 97.7 L Carbon Dioxide 21 L BUN 79 H Creatinine 1.7 H D Glucose 112 H POC Glucose 133 H 135 H Lactic Acid Calcium Phosphorus 5.00 H D Magnesium Direct Bilirubin AST ALT Alkaline Phosphatase Lactate Dehydrogenase Troponin T C-Reactive Protein Total Protein Albumin Prealbumin Triglycerides Cholesterol LDL Cholesterol Direct HDL Cholesterol PTH Intact Urine pH Urine WBC (Auto) Urine Creatinine Urine Total Protein Fluid Total Protein Vancomycin Trough Rheumatoid Factor Complement C4 Miscellaneous Test Crossmatch 01/27/17 01/27/17 01/27/17 05:12 12:18 17:25 WBC RBC Hgb Hct MCV MCH MCHC RDW Plt Count Lymph % (Auto) [place] % (Auto) Lymph # [place] # Baso # Seg Neutrophils % Seg Neuts % (Manual) Lymphocytes % (Manual) Monocytes % (Manual) Eosinophils % (Manual) Basophils % (Manual) Nucleated RBC % Seg Neutrophils # Seg Neutrophils # Man Lymphocytes # (Manual) Monocytes # (Manual) Eosinophils # (Manual) Basophils # (Manual) PT INR Fibrinogen dRVVT Confirm Interp Factor V Activity POC ABG pH POC ABG pCO2 POC ABG pO2 ABG pO2 ABG HCO3 ABG Base Excess ABG Hemoglobin Oxyhemoglobin Sodium Potassium Chloride Carbon Dioxide BUN Creatinine Glucose POC Glucose 116 H 153 H 152 H Lactic Acid Calcium Phosphorus Magnesium Direct Bilirubin AST ALT Alkaline Phosphatase Lactate Dehydrogenase Troponin T C-Reactive Protein Total Protein Albumin Prealbumin Triglycerides Cholesterol LDL Cholesterol Direct HDL Cholesterol PTH Intact Urine pH Urine WBC (Auto) Urine Creatinine Urine Total Protein Fluid Total Protein Vancomycin Trough Rheumatoid Factor Complement C4 Miscellaneous Test Crossmatch 01/27/17 01/28/17 01/28/17 23:42 04:00 04:00 WBC 14.4 H RBC 2.82 L Hgb 7.4 L Hct 23.5 L MCV MCH 26 L MCHC RDW 17.6 H Plt Count Lymph % (Auto) 10.2 L [place] % (Auto) 11.0 H Lymph # [place] # 1.6 H Baso # Seg Neutrophils % 78.0 H Seg Neuts % (Manual) Lymphocytes % (Manual) Monocytes % (Manual) Eosinophils % (Manual) Basophils % (Manual) Nucleated RBC % Seg Neutrophils # 11.3 H Seg Neutrophils # Man Lymphocytes # (Manual) Monocytes # (Manual) Eosinophils # (Manual) Basophils # (Manual) PT INR Fibrinogen dRVVT Confirm Interp Factor V Activity POC ABG pH POC ABG pCO2 POC ABG pO2 ABG pO2 ABG HCO3 ABG Base Excess ABG Hemoglobin Oxyhemoglobin Sodium Potassium Chloride Carbon Dioxide BUN 55 H Creatinine 1.3 H Glucose 114 H POC Glucose 121 H Lactic Acid Calcium Phosphorus Magnesium Direct Bilirubin AST ALT Alkaline Phosphatase Lactate Dehydrogenase Troponin T C-Reactive Protein Total Protein Albumin 1.4 L Prealbumin Triglycerides Cholesterol LDL Cholesterol Direct HDL Cholesterol PTH Intact Urine pH Urine WBC (Auto) Urine Creatinine Urine Total Protein Fluid Total Protein Vancomycin Trough Rheumatoid Factor Complement C4 Miscellaneous Test Crossmatch 1201/28/17 01/29/17 04:59 12:30 00:02 WBC RBC Hgb Hct MCV MCH MCHC RDW Plt Count Lymph % (Auto) [place] % (Auto) Lymph # [place] # Baso # Seg Neutrophils % Seg Neuts % (Manual) Lymphocytes % (Manual) Monocytes % (Manual) Eosinophils % (Manual) Basophils % (Manual) Nucleated RBC % Seg Neutrophils # Seg Neutrophils # Man Lymphocytes # (Manual) Monocytes # (Manual) Eosinophils # (Manual) Basophils # (Manual) PT INR Fibrinogen dRVVT Confirm Interp Factor V Activity POC ABG pH POC ABG pCO2 POC ABG pO2 ABG pO2 ABG HCO3 ABG Base Excess ABG Hemoglobin Oxyhemoglobin Sodium Potassium Chloride Carbon Dioxide BUN Creatinine Glucose POC Glucose 126 H 119 H 138 H Lactic Acid Calcium Phosphorus Magnesium Direct Bilirubin AST ALT Alkaline Phosphatase Lactate Dehydrogenase Troponin T C-Reactive Protein Total Protein Albumin Prealbumin Triglycerides Cholesterol LDL Cholesterol Direct HDL Cholesterol PTH Intact Urine pH Urine WBC (Auto) Urine Creatinine Urine Total Protein Fluid Total Protein Vancomycin Trough Rheumatoid Factor Complement C4 Miscellaneous Test Crossmatch 01/29/17 01/29/17 01/29/17 04:58 06:15 11:35 WBC RBC Hgb Hct MCV MCH MCHC RDW Plt Count Lymph % (Auto) [place] % (Auto) Lymph # [place] # Baso # Seg Neutrophils % Seg Neuts % (Manual) Lymphocytes % (Manual) Monocytes % (Manual) Eosinophils % (Manual) Basophils % (Manual) Nucleated RBC % Seg Neutrophils # Seg Neutrophils # Man Lymphocytes # (Manual) Monocytes # (Manual) Eosinophils # (Manual) Basophils # (Manual) PT INR Fibrinogen dRVVT Confirm Interp Factor V Activity POC ABG pH POC ABG pCO2 POC ABG pO2 ABG pO2 ABG HCO3 ABG Base Excess ABG Hemoglobin Oxyhemoglobin Sodium Potassium Chloride Carbon Dioxide BUN 85 H Creatinine 1.7 H Glucose 105 H POC Glucose 114 H 110 H Lactic Acid Calcium Phosphorus Magnesium 2.40 H Direct Bilirubin AST ALT Alkaline Phosphatase Lactate Dehydrogenase Troponin T C-Reactive Protein Total Protein Albumin Prealbumin Triglycerides Cholesterol LDL Cholesterol Direct HDL Cholesterol PTH Intact Urine pH Urine WBC (Auto) Urine Creatinine Urine Total Protein Fluid Total Protein Vancomycin Trough Rheumatoid Factor Complement C4 Miscellaneous Test Crossmatch 01/29/17 01/29/17 01/30/17 18:24 23:41 05:12 WBC RBC Hgb Hct MCV MCH MCHC RDW Plt Count Lymph % (Auto) [place] % (Auto) Lymph # [place] # Baso # Seg Neutrophils % Seg Neuts % (Manual) Lymphocytes % (Manual) Monocytes % (Manual) Eosinophils % (Manual) Basophils % (Manual) Nucleated RBC % Seg Neutrophils # Seg Neutrophils # Man Lymphocytes # (Manual) Monocytes # (Manual) Eosinophils # (Manual) Basophils # (Manual) PT INR Fibrinogen dRVVT Confirm Interp Factor V Activity POC ABG pH POC ABG pCO2 POC ABG pO2 ABG pO2 ABG HCO3 ABG Base Excess ABG Hemoglobin Oxyhemoglobin Sodium Potassium Chloride Carbon Dioxide BUN Creatinine Glucose POC Glucose 109 H 134 H 109 H Lactic Acid Calcium Phosphorus Magnesium Direct Bilirubin AST ALT Alkaline Phosphatase Lactate Dehydrogenase Troponin T C-Reactive Protein Total Protein Albumin Prealbumin Triglycerides Cholesterol LDL Cholesterol Direct HDL Cholesterol PTH Intact Urine pH Urine WBC (Auto) Urine Creatinine Urine Total Protein Fluid Total Protein Vancomycin Trough Rheumatoid Factor Complement C4 Miscellaneous Test Crossmatch 01/30/17 01/30/17 01/30/17 11:26 17:43 23:39 WBC RBC Hgb Hct MCV MCH MCHC RDW Plt Count Lymph % (Auto) [place] % (Auto) Lymph # [place] # Baso # Seg Neutrophils % Seg Neuts % (Manual) Lymphocytes % (Manual) Monocytes % (Manual) Eosinophils % (Manual) Basophils % (Manual) Nucleated RBC % Seg Neutrophils # Seg Neutrophils # Man Lymphocytes # (Manual) Monocytes # (Manual) Eosinophils # (Manual) Basophils # (Manual) PT INR Fibrinogen dRVVT Confirm Interp Factor V Activity POC ABG pH POC ABG pCO2 POC ABG pO2 ABG pO2 ABG HCO3 ABG Base Excess ABG Hemoglobin Oxyhemoglobin Sodium Potassium Chloride Carbon Dioxide BUN Creatinine Glucose POC Glucose 135 H 143 H 122 H Lactic Acid Calcium Phosphorus Magnesium Direct Bilirubin AST ALT Alkaline Phosphatase Lactate Dehydrogenase Troponin T C-Reactive Protein Total Protein Albumin Prealbumin Triglycerides Cholesterol LDL Cholesterol Direct HDL Cholesterol PTH Intact Urine pH Urine WBC (Auto) Urine Creatinine Urine Total Protein Fluid Total Protein Vancomycin Trough Rheumatoid Factor Complement C4 Miscellaneous Test Crossmatch 01/31/17 01/31/17 01/31/17 04:00 05:40 11:12 WBC RBC Hgb Hct MCV MCH MCHC RDW Plt Count Lymph % (Auto) [place] % (Auto) Lymph # [place] # Baso # Seg Neutrophils % Seg Neuts % (Manual) Lymphocytes % (Manual) Monocytes % (Manual) Eosinophils % (Manual) Basophils % (Manual) Nucleated RBC % Seg Neutrophils # Seg Neutrophils # Man Lymphocytes # (Manual) Monocytes # (Manual) Eosinophils # (Manual) Basophils # (Manual) PT INR Fibrinogen dRVVT Confirm Interp Factor V Activity POC ABG pH POC ABG pCO2 POC ABG pO2 ABG pO2 ABG HCO3 ABG Base Excess ABG Hemoglobin Oxyhemoglobin Sodium Potassium Chloride Carbon Dioxide BUN 78 H Creatinine 1.5 H Glucose 108 H POC Glucose 123 H Lactic Acid Calcium Phosphorus Magnesium Direct Bilirubin AST ALT Alkaline Phosphatase Lactate Dehydrogenase Troponin T C-Reactive Protein 8.10 H Total Protein Albumin Prealbumin Triglycerides Cholesterol LDL Cholesterol Direct HDL Cholesterol PTH Intact Urine pH Urine WBC (Auto) Urine Creatinine Urine Total Protein Fluid Total Protein Vancomycin Trough Rheumatoid Factor Complement C4 Miscellaneous Test Crossmatch 01/31/17 01/31/17 01/31/17 11:16 17:45 17:50 WBC RBC Hgb Hct MCV MCH MCHC RDW Plt Count Lymph % (Auto) [place] % (Auto) Lymph # [place] # Baso # Seg Neutrophils % Seg Neuts % (Manual) Lymphocytes % (Manual) Monocytes % (Manual) Eosinophils % (Manual) Basophils % (Manual) Nucleated RBC % Seg Neutrophils # Seg Neutrophils # Man Lymphocytes # (Manual) Monocytes # (Manual) Eosinophils # (Manual) Basophils # (Manual) PT INR Fibrinogen dRVVT Confirm Interp Factor V Activity POC ABG pH POC ABG pCO2 POC ABG pO2 ABG pO2 ABG HCO3 ABG Base Excess ABG Hemoglobin Oxyhemoglobin Sodium Potassium Chloride Carbon Dioxide BUN Creatinine Glucose POC Glucose 119 H 111 H Lactic Acid Calcium Phosphorus Magnesium Direct Bilirubin AST ALT Alkaline Phosphatase Lactate Dehydrogenase Troponin T C-Reactive Protein Total Protein Albumin Prealbumin Triglycerides Cholesterol LDL Cholesterol Direct HDL Cholesterol PTH Intact 6.76 L Urine pH Urine WBC (Auto) Urine Creatinine Urine Total Protein Fluid Total Protein Vancomycin Trough Rheumatoid Factor Complement C4 Miscellaneous Test Crossmatch 01/31/17 02/01/17 02/01/17 23:19 05:42 09:24 WBC RBC Hgb Hct MCV MCH MCHC RDW Plt Count Lymph % (Auto) [place] % (Auto) Lymph # [place] # Baso # Seg Neutrophils % Seg Neuts % (Manual) Lymphocytes % (Manual) Monocytes % (Manual) Eosinophils % (Manual) Basophils % (Manual) Nucleated RBC % Seg Neutrophils # Seg Neutrophils # Man Lymphocytes # (Manual) Monocytes # (Manual) Eosinophils # (Manual) Basophils # (Manual) PT INR Fibrinogen dRVVT Confirm Interp Factor V Activity POC ABG pH POC ABG pCO2 POC ABG pO2 ABG pO2 ABG HCO3 ABG Base Excess ABG Hemoglobin Oxyhemoglobin Sodium Potassium Chloride Carbon Dioxide BUN Creatinine Glucose POC Glucose 118 H 122 H Lactic Acid Calcium Phosphorus Magnesium 2.60 H Direct Bilirubin AST ALT Alkaline Phosphatase Lactate Dehydrogenase Troponin T C-Reactive Protein Total Protein Albumin Prealbumin Triglycerides Cholesterol LDL Cholesterol Direct HDL Cholesterol PTH Intact Urine pH Urine WBC (Auto) Urine Creatinine Urine Total Protein Fluid Total Protein Vancomycin Trough Rheumatoid Factor Complement C4 Miscellaneous Test Crossmatch 02/01/17 02/01/17 02/02/17 09:24 12:15 07:40 WBC RBC Hgb Hct MCV MCH MCHC RDW Plt Count Lymph % (Auto) [place] % (Auto) Lymph # [place] # Baso # Seg Neutrophils % Seg Neuts % (Manual) Lymphocytes % (Manual) Monocytes % (Manual) Eosinophils % (Manual) Basophils % (Manual) Nucleated RBC % Seg Neutrophils # Seg Neutrophils # Man Lymphocytes # (Manual) Monocytes # (Manual) Eosinophils # (Manual) Basophils # (Manual) PT INR Fibrinogen dRVVT Confirm Interp Factor V Activity POC ABG pH POC ABG pCO2 POC ABG pO2 ABG pO2 ABG HCO3 ABG Base Excess ABG Hemoglobin Oxyhemoglobin Sodium Potassium Chloride Carbon Dioxide BUN 102 H 72 H Creatinine 1.9 H 1.5 H Glucose 120 H POC Glucose 156 H Lactic Acid Calcium Phosphorus Magnesium Direct Bilirubin AST ALT Alkaline Phosphatase Lactate Dehydrogenase Troponin T C-Reactive Protein Total Protein Albumin Prealbumin Triglycerides Cholesterol LDL Cholesterol Direct HDL Cholesterol PTH Intact Urine pH Urine WBC (Auto) Urine Creatinine Urine Total Protein Fluid Total Protein Vancomycin Trough Rheumatoid Factor Complement C4 Miscellaneous Test Crossmatch 02/02/17 02/02/17 02/03/17 10:16 12:11 00:08 WBC 12.0 H RBC 3.08 L Hgb 8.3 L Hct 25.6 L MCV MCH 27 L MCHC RDW 18.2 H Plt Count Lymph % (Auto) [place] % (Auto) Lymph # [place] # Baso # Seg Neutrophils % 78.4 H Seg Neuts % (Manual) Lymphocytes % (Manual) Monocytes % (Manual) Eosinophils % (Manual) Basophils % (Manual) Nucleated RBC % Seg Neutrophils # 9.4 H Seg Neutrophils # Man Lymphocytes # (Manual) Monocytes # (Manual) Eosinophils # (Manual) Basophils # (Manual) PT INR Fibrinogen dRVVT Confirm Interp Factor V Activity POC ABG pH POC ABG pCO2 POC ABG pO2 ABG pO2 ABG HCO3 ABG Base Excess ABG Hemoglobin Oxyhemoglobin Sodium Potassium Chloride Carbon Dioxide BUN Creatinine Glucose POC Glucose 110 H 120 H Lactic Acid Calcium Phosphorus Magnesium Direct Bilirubin AST ALT Alkaline Phosphatase Lactate Dehydrogenase Troponin T C-Reactive Protein Total Protein Albumin Prealbumin Triglycerides Cholesterol LDL Cholesterol Direct HDL Cholesterol PTH Intact Urine pH Urine WBC (Auto) Urine Creatinine Urine Total Protein Fluid Total Protein Vancomycin Trough Rheumatoid Factor Complement C4 Miscellaneous Test Crossmatch 02/03/17 02/03/17 02/03/17 05:41 07:38 11:31 WBC RBC Hgb Hct MCV MCH MCHC RDW Plt Count Lymph % (Auto) [place] % (Auto) Lymph # [place] # Baso # Seg Neutrophils % Seg Neuts % (Manual) Lymphocytes % (Manual) Monocytes % (Manual) Eosinophils % (Manual) Basophils % (Manual) Nucleated RBC % Seg Neutrophils # Seg Neutrophils # Man Lymphocytes # (Manual) Monocytes # (Manual) Eosinophils # (Manual) Basophils # (Manual) PT INR Fibrinogen dRVVT Confirm Interp Factor V Activity POC ABG pH POC ABG pCO2 POC ABG pO2 ABG pO2 ABG HCO3 ABG Base Excess ABG Hemoglobin Oxyhemoglobin Sodium 134 L Potassium Chloride Carbon Dioxide 21 L BUN 91 H Creatinine 1.9 H Glucose 110 H POC Glucose 119 H 119 H Lactic Acid Calcium 10.3 H Phosphorus Magnesium Direct Bilirubin AST ALT Alkaline Phosphatase Lactate Dehydrogenase Troponin T C-Reactive Protein Total Protein Albumin Prealbumin Triglycerides Cholesterol LDL Cholesterol Direct HDL Cholesterol PTH Intact Urine pH Urine WBC (Auto) Urine Creatinine Urine Total Protein Fluid Total Protein Vancomycin Trough Rheumatoid Factor Complement C4 Miscellaneous Test Crossmatch 02/03/17 02/04/17 02/04/17 17:13 04:00 05:18 WBC RBC Hgb Hct MCV MCH MCHC RDW Plt Count Lymph % (Auto) [place] % (Auto) Lymph # [place] # Baso # Seg Neutrophils % Seg Neuts % (Manual) Lymphocytes % (Manual) Monocytes % (Manual) Eosinophils % (Manual) Basophils % (Manual) Nucleated RBC % Seg Neutrophils # Seg Neutrophils # Man Lymphocytes # (Manual) Monocytes # (Manual) Eosinophils # (Manual) Basophils # (Manual) PT INR Fibrinogen dRVVT Confirm Interp Factor V Activity POC ABG pH POC ABG pCO2 POC ABG pO2 ABG pO2 ABG HCO3 ABG Base Excess ABG Hemoglobin Oxyhemoglobin Sodium 136 L Potassium Chloride Carbon Dioxide BUN 58 H Creatinine 1.3 H Glucose 103 H POC Glucose 133 H 132 H Lactic Acid Calcium Phosphorus 2.00 L D Magnesium 1.60 L Direct Bilirubin AST ALT Alkaline Phosphatase Lactate Dehydrogenase Troponin T C-Reactive Protein Total Protein Albumin Prealbumin Triglycerides Cholesterol LDL Cholesterol Direct HDL Cholesterol PTH Intact Urine pH Urine WBC (Auto) Urine Creatinine Urine Total Protein Fluid Total Protein Vancomycin Trough Rheumatoid Factor Complement C4 Miscellaneous Test Crossmatch 02/05/17 02/05/17 02/05/17 00:01 04:00 06:42 WBC RBC Hgb Hct MCV MCH MCHC RDW Plt Count Lymph % (Auto) [place] % (Auto) Lymph # [place] # Baso # Seg Neutrophils % Seg Neuts % (Manual) Lymphocytes % (Manual) Monocytes % (Manual) Eosinophils % (Manual) Basophils % (Manual) Nucleated RBC % Seg Neutrophils # Seg Neutrophils # Man Lymphocytes # (Manual) Monocytes # (Manual) Eosinophils # (Manual) Basophils # (Manual) PT INR Fibrinogen dRVVT Confirm Interp Factor V Activity POC ABG pH POC ABG pCO2 POC ABG pO2 ABG pO2 ABG HCO3 ABG Base Excess ABG Hemoglobin Oxyhemoglobin Sodium Potassium Chloride Carbon Dioxide BUN 83 H Creatinine 1.8 H Glucose POC Glucose 119 H 110 H Lactic Acid Calcium 10.7 H Phosphorus Magnesium Direct Bilirubin AST ALT Alkaline Phosphatase Lactate Dehydrogenase Troponin T C-Reactive Protein Total Protein Albumin Prealbumin Triglycerides Cholesterol LDL Cholesterol Direct HDL Cholesterol PTH Intact Urine pH Urine WBC (Auto) Urine Creatinine Urine Total Protein Fluid Total Protein Vancomycin Trough Rheumatoid Factor Complement C4 Miscellaneous Test Crossmatch 02/05/17 02/05/17 02/05/17 09:59 11:47 23:44 WBC RBC 2.69 L Hgb 7.2 L Hct 22.5 L MCV MCH 27 L MCHC RDW 18.6 H Plt Count Lymph % (Auto) [place] % (Auto) 9.2 H Lymph # [place] # 0.9 H Baso # Seg Neutrophils % Seg Neuts % (Manual) Lymphocytes % (Manual) Monocytes % (Manual) Eosinophils % (Manual) Basophils % (Manual) Nucleated RBC % Seg Neutrophils # Seg Neutrophils # Man Lymphocytes # (Manual) Monocytes # (Manual) Eosinophils # (Manual) Basophils # (Manual) PT INR Fibrinogen dRVVT Confirm Interp Factor V Activity POC ABG pH POC ABG pCO2 POC ABG pO2 ABG pO2 ABG HCO3 ABG Base Excess ABG Hemoglobin Oxyhemoglobin Sodium Potassium Chloride Carbon Dioxide BUN Creatinine Glucose POC Glucose 130 H 123 H Lactic Acid Calcium Phosphorus Magnesium Direct Bilirubin AST ALT Alkaline Phosphatase Lactate Dehydrogenase Troponin T C-Reactive Protein Total Protein Albumin Prealbumin Triglycerides Cholesterol LDL Cholesterol Direct HDL Cholesterol PTH Intact Urine pH Urine WBC (Auto) Urine Creatinine Urine Total Protein Fluid Total Protein Vancomycin Trough Rheumatoid Factor Complement C4 Miscellaneous Test Crossmatch 02/06/17 02/06/17 02/06/17 04:45 05:58 12:01 WBC RBC Hgb Hct MCV MCH MCHC RDW Plt Count Lymph % (Auto) [place] % (Auto) Lymph # [place] # Baso # Seg Neutrophils % Seg Neuts % (Manual) Lymphocytes % (Manual) Monocytes % (Manual) Eosinophils % (Manual) Basophils % (Manual) Nucleated RBC % Seg Neutrophils # Seg Neutrophils # Man Lymphocytes # (Manual) Monocytes # (Manual) Eosinophils # (Manual) Basophils # (Manual) PT INR Fibrinogen dRVVT Confirm Interp Factor V Activity POC ABG pH POC ABG pCO2 POC ABG pO2 ABG pO2 ABG HCO3 ABG Base Excess ABG Hemoglobin Oxyhemoglobin Sodium Potassium Chloride Carbon Dioxide BUN 101 H Creatinine 2.0 H Glucose 102 H POC Glucose 115 H 132 H Lactic Acid Calcium 10.6 H Phosphorus Magnesium Direct Bilirubin AST ALT Alkaline Phosphatase 199 H Lactate Dehydrogenase Troponin T C-Reactive Protein Total Protein Albumin 1.4 L Prealbumin Triglycerides Cholesterol LDL Cholesterol Direct HDL Cholesterol PTH Intact Urine pH Urine WBC (Auto) Urine Creatinine Urine Total Protein Fluid Total Protein Vancomycin Trough Rheumatoid Factor Complement C4 Miscellaneous Test Crossmatch 02/06/17 02/06/17 02/07/17 17:41 23:32 05:04 WBC RBC Hgb Hct MCV MCH MCHC RDW Plt Count Lymph % (Auto) [place] % (Auto) Lymph # [place] # Baso # Seg Neutrophils % Seg Neuts % (Manual) Lymphocytes % (Manual) Monocytes % (Manual) Eosinophils % (Manual) Basophils % (Manual) Nucleated RBC % Seg Neutrophils # Seg Neutrophils # Man Lymphocytes # (Manual) Monocytes # (Manual) Eosinophils # (Manual) Basophils # (Manual) PT INR Fibrinogen dRVVT Confirm Interp Factor V Activity POC ABG pH POC ABG pCO2 POC ABG pO2 ABG pO2 ABG HCO3 ABG Base Excess ABG Hemoglobin Oxyhemoglobin Sodium Potassium Chloride Carbon Dioxide BUN Creatinine Glucose POC Glucose 134 H 128 H 119 H Lactic Acid Calcium Phosphorus Magnesium Direct Bilirubin AST ALT Alkaline Phosphatase Lactate Dehydrogenase Troponin T C-Reactive Protein Total Protein Albumin Prealbumin Triglycerides Cholesterol LDL Cholesterol Direct HDL Cholesterol PTH Intact Urine pH Urine WBC (Auto) Urine Creatinine Urine Total Protein Fluid Total Protein Vancomycin Trough Rheumatoid Factor Complement C4 Miscellaneous Test Crossmatch 02/07/17 02/07/17 02/07/17 06:30 11:20 17:13 WBC RBC Hgb Hct MCV MCH MCHC RDW Plt Count Lymph % (Auto) [place] % (Auto) Lymph # [place] # Baso # Seg Neutrophils % Seg Neuts % (Manual) Lymphocytes % (Manual) Monocytes % (Manual) Eosinophils % (Manual) Basophils % (Manual) Nucleated RBC % Seg Neutrophils # Seg Neutrophils # Man Lymphocytes # (Manual) Monocytes # (Manual) Eosinophils # (Manual) Basophils # (Manual) PT INR Fibrinogen dRVVT Confirm Interp Factor V Activity POC ABG pH POC ABG pCO2 POC ABG pO2 ABG pO2 ABG HCO3 ABG Base Excess ABG Hemoglobin Oxyhemoglobin Sodium Potassium 3.4 L Chloride Carbon Dioxide BUN 69 H Creatinine 1.5 H Glucose 105 H POC Glucose 117 H 110 H Lactic Acid Calcium Phosphorus Magnesium 1.50 L Direct Bilirubin AST ALT Alkaline Phosphatase Lactate Dehydrogenase Troponin T C-Reactive Protein Total Protein Albumin Prealbumin Triglycerides Cholesterol LDL Cholesterol Direct HDL Cholesterol PTH Intact Urine pH Urine WBC (Auto) Urine Creatinine Urine Total Protein Fluid Total Protein Vancomycin Trough Rheumatoid Factor Complement C4 Miscellaneous Test Crossmatch 02/07/17 02/08/17 02/08/17 20:47 04:00 11:43 WBC RBC Hgb Hct MCV MCH MCHC RDW Plt Count Lymph % (Auto) [place] % (Auto) Lymph # [place] # Baso # Seg Neutrophils % Seg Neuts % (Manual) Lymphocytes % (Manual) Monocytes % (Manual) Eosinophils % (Manual) Basophils % (Manual) Nucleated RBC % Seg Neutrophils # Seg Neutrophils # Man Lymphocytes # (Manual) Monocytes # (Manual) Eosinophils # (Manual) Basophils # (Manual) PT INR Fibrinogen dRVVT Confirm Interp Factor V Activity POC ABG pH POC ABG pCO2 POC ABG pO2 ABG pO2 ABG HCO3 ABG Base Excess ABG Hemoglobin Oxyhemoglobin Sodium Potassium Chloride Carbon Dioxide BUN 86 H Creatinine 1.7 H Glucose POC Glucose 115 H 122 H Lactic Acid Calcium Phosphorus Magnesium 1.60 L Direct Bilirubin AST ALT Alkaline Phosphatase Lactate Dehydrogenase Troponin T C-Reactive Protein Total Protein Albumin Prealbumin Triglycerides Cholesterol LDL Cholesterol Direct HDL Cholesterol PTH Intact Urine pH Urine WBC (Auto) Urine Creatinine Urine Total Protein Fluid Total Protein Vancomycin Trough Rheumatoid Factor Complement C4 Miscellaneous Test Crossmatch 02/08/17 02/09/17 02/09/17 17:36 05:44 11:30 WBC RBC Hgb Hct MCV MCH MCHC RDW Plt Count Lymph % (Auto) [place] % (Auto) Lymph # [place] # Baso # Seg Neutrophils % Seg Neuts % (Manual) Lymphocytes % (Manual) Monocytes % (Manual) Eosinophils % (Manual) Basophils % (Manual) Nucleated RBC % Seg Neutrophils # Seg Neutrophils # Man Lymphocytes # (Manual) Monocytes # (Manual) Eosinophils # (Manual) Basophils # (Manual) PT INR Fibrinogen dRVVT Confirm Interp Factor V Activity POC ABG pH POC ABG pCO2 POC ABG pO2 ABG pO2 ABG HCO3 ABG Base Excess ABG Hemoglobin Oxyhemoglobin Sodium Potassium Chloride Carbon Dioxide BUN Creatinine Glucose POC Glucose 125 H 117 H 120 H Lactic Acid Calcium Phosphorus Magnesium Direct Bilirubin AST ALT Alkaline Phosphatase Lactate Dehydrogenase Troponin T C-Reactive Protein Total Protein Albumin Prealbumin Triglycerides Cholesterol LDL Cholesterol Direct HDL Cholesterol PTH Intact Urine pH Urine WBC (Auto) Urine Creatinine Urine Total Protein Fluid Total Protein Vancomycin Trough Rheumatoid Factor Complement C4 Miscellaneous Test Crossmatch 02/09/17 02/10/17 02/10/17 23:45 05:45 05:50 WBC RBC Hgb Hct MCV MCH MCHC RDW Plt Count Lymph % (Auto) [place] % (Auto) Lymph # [place] # Baso # Seg Neutrophils % Seg Neuts % (Manual) Lymphocytes % (Manual) Monocytes % (Manual) Eosinophils % (Manual) Basophils % (Manual) Nucleated RBC % Seg Neutrophils # Seg Neutrophils # Man Lymphocytes # (Manual) Monocytes # (Manual) Eosinophils # (Manual) Basophils # (Manual) PT INR Fibrinogen dRVVT Confirm Interp Factor V Activity POC ABG pH POC ABG pCO2 POC ABG pO2 ABG pO2 ABG HCO3 ABG Base Excess ABG Hemoglobin Oxyhemoglobin Sodium Potassium Chloride Carbon Dioxide BUN 85 H Creatinine 1.8 H Glucose 109 H POC Glucose 114 H 189 H Lactic Acid Calcium Phosphorus Magnesium 2.50 H Direct Bilirubin AST ALT Alkaline Phosphatase Lactate Dehydrogenase Troponin T C-Reactive Protein Total Protein Albumin Prealbumin Triglycerides Cholesterol LDL Cholesterol Direct HDL Cholesterol PTH Intact Urine pH Urine WBC (Auto) Urine Creatinine Urine Total Protein Fluid Total Protein Vancomycin Trough Rheumatoid Factor Complement C4 Miscellaneous Test Crossmatch 02/10/17 02/10/17 02/10/17 05:51 11:55 17:42 WBC RBC Hgb Hct MCV MCH MCHC RDW Plt Count Lymph % (Auto) [place] % (Auto) Lymph # [place] # Baso # Seg Neutrophils % Seg Neuts % (Manual) Lymphocytes % (Manual) Monocytes % (Manual) Eosinophils % (Manual) Basophils % (Manual) Nucleated RBC % Seg Neutrophils # Seg Neutrophils # Man Lymphocytes # (Manual) Monocytes # (Manual) Eosinophils # (Manual) Basophils # (Manual) PT INR Fibrinogen dRVVT Confirm Interp Factor V Activity POC ABG pH POC ABG pCO2 POC ABG pO2 ABG pO2 ABG HCO3 ABG Base Excess ABG Hemoglobin Oxyhemoglobin Sodium Potassium Chloride Carbon Dioxide BUN Creatinine Glucose POC Glucose 106 H 146 H 132 H Lactic Acid Calcium Phosphorus Magnesium Direct Bilirubin AST ALT Alkaline Phosphatase Lactate Dehydrogenase Troponin T C-Reactive Protein Total Protein Albumin Prealbumin Triglycerides Cholesterol LDL Cholesterol Direct HDL Cholesterol PTH Intact Urine pH Urine WBC (Auto) Urine Creatinine Urine Total Protein Fluid Total Protein Vancomycin Trough Rheumatoid Factor Complement C4 Miscellaneous Test Crossmatch 02/10/17 02/11/17 02/11/17 23:43 04:08 05:34 WBC RBC Hgb Hct MCV MCH MCHC RDW Plt Count Lymph % (Auto) [place] % (Auto) Lymph # [place] # Baso # Seg Neutrophils % Seg Neuts % (Manual) Lymphocytes % (Manual) Monocytes % (Manual) Eosinophils % (Manual) Basophils % (Manual) Nucleated RBC % Seg Neutrophils # Seg Neutrophils # Man Lymphocytes # (Manual) Monocytes # (Manual) Eosinophils # (Manual) Basophils # (Manual) PT INR Fibrinogen dRVVT Confirm Interp Factor V Activity POC ABG pH POC ABG pCO2 POC ABG pO2 ABG pO2 ABG HCO3 ABG Base Excess ABG Hemoglobin Oxyhemoglobin Sodium 136 L Potassium Chloride Carbon Dioxide BUN 65 H Creatinine 1.7 H Glucose 105 H POC Glucose 130 H 113 H Lactic Acid Calcium Phosphorus Magnesium Direct Bilirubin AST ALT Alkaline Phosphatase Lactate Dehydrogenase Troponin T C-Reactive Protein Total Protein Albumin Prealbumin Triglycerides Cholesterol LDL Cholesterol Direct HDL Cholesterol PTH Intact Urine pH Urine WBC (Auto) Urine Creatinine Urine Total Protein Fluid Total Protein Vancomycin Trough Rheumatoid Factor Complement C4 Miscellaneous Test Crossmatch 02/11/17 02/11/17 02/12/17 11:56 23:18 06:19 WBC RBC Hgb Hct MCV MCH MCHC RDW Plt Count Lymph % (Auto) [place] % (Auto) Lymph # [place] # Baso # Seg Neutrophils % Seg Neuts % (Manual) Lymphocytes % (Manual) Monocytes % (Manual) Eosinophils % (Manual) Basophils % (Manual) Nucleated RBC % Seg Neutrophils # Seg Neutrophils # Man Lymphocytes # (Manual) Monocytes # (Manual) Eosinophils # (Manual) Basophils # (Manual) PT INR Fibrinogen dRVVT Confirm Interp Factor V Activity POC ABG pH POC ABG pCO2 POC ABG pO2 ABG pO2 ABG HCO3 ABG Base Excess ABG Hemoglobin Oxyhemoglobin Sodium 136 L Potassium Chloride 97.1 L Carbon Dioxide BUN 93 H Creatinine 2.4 H Glucose POC Glucose 126 H 119 H Lactic Acid Calcium 11.0 H Phosphorus Magnesium Direct Bilirubin AST ALT Alkaline Phosphatase Lactate Dehydrogenase Troponin T C-Reactive Protein Total Protein Albumin Prealbumin Triglycerides Cholesterol LDL Cholesterol Direct HDL Cholesterol PTH Intact Urine pH Urine WBC (Auto) Urine Creatinine Urine Total Protein Fluid Total Protein Vancomycin Trough Rheumatoid Factor Complement C4 Miscellaneous Test Crossmatch 02/12/17 02/12/17 02/12/17 08:00 10:25 11:42 WBC 15.4 H RBC 2.63 L Hgb 6.9 L Hct 22.6 L MCV MCH 26 L MCHC RDW 20.5 H Plt Count Lymph % (Auto) [place] % (Auto) Lymph # [place] # Baso # Seg Neutrophils % Seg Neuts % (Manual) Lymphocytes % (Manual) Monocytes % (Manual) Eosinophils % (Manual) Basophils % (Manual) Nucleated RBC % Seg Neutrophils # Seg Neutrophils # Man Lymphocytes # (Manual) Monocytes # (Manual) Eosinophils # (Manual) Basophils # (Manual) PT INR Fibrinogen dRVVT Confirm Interp Factor V Activity POC ABG pH POC ABG pCO2 POC ABG pO2 ABG pO2 ABG HCO3 ABG Base Excess ABG Hemoglobin Oxyhemoglobin Sodium Potassium Chloride Carbon Dioxide BUN Creatinine Glucose POC Glucose 142 H Lactic Acid Calcium Phosphorus Magnesium Direct Bilirubin AST ALT Alkaline Phosphatase Lactate Dehydrogenase Troponin T C-Reactive Protein Total Protein Albumin Prealbumin Triglycerides Cholesterol LDL Cholesterol Direct HDL Cholesterol PTH Intact Urine pH Urine WBC (Auto) Urine Creatinine Urine Total Protein Fluid Total Protein Vancomycin Trough Rheumatoid Factor Complement C4 Miscellaneous Test Crossmatch See Detail 02/12/17 02/13/17 02/13/17 18:04 00:04 05:00 WBC RBC Hgb Hct MCV MCH MCHC RDW Plt Count Lymph % (Auto) [place] % (Auto) Lymph # [place] # Baso # Seg Neutrophils % Seg Neuts % (Manual) Lymphocytes % (Manual) Monocytes % (Manual) Eosinophils % (Manual) Basophils % (Manual) Nucleated RBC % Seg Neutrophils # Seg Neutrophils # Man Lymphocytes # (Manual) Monocytes # (Manual) Eosinophils # (Manual) Basophils # (Manual) PT INR Fibrinogen dRVVT Confirm Interp Factor V Activity POC ABG pH POC ABG pCO2 POC ABG pO2 ABG pO2 ABG HCO3 ABG Base Excess ABG Hemoglobin Oxyhemoglobin Sodium 134 L Potassium Chloride 96.1 L Carbon Dioxide 20 L BUN 125 H Creatinine 3.0 H Glucose 111 H POC Glucose 135 H 109 H Lactic Acid Calcium 11.3 H Phosphorus Magnesium Direct Bilirubin AST ALT Alkaline Phosphatase Lactate Dehydrogenase Troponin T C-Reactive Protein Total Protein Albumin Prealbumin Triglycerides Cholesterol LDL Cholesterol Direct HDL Cholesterol PTH Intact Urine pH Urine WBC (Auto) Urine Creatinine Urine Total Protein Fluid Total Protein Vancomycin Trough Rheumatoid Factor Complement C4 Miscellaneous Test Crossmatch 02/13/17 02/13/17 02/13/17 05:00 05:28 12:03 WBC 11.9 H RBC 2.92 L Hgb 7.8 L Hct 25.2 L MCV MCH 27 L MCHC RDW 19.3 H Plt Count Lymph % (Auto) [place] % (Auto) Lymph # [place] # Baso # Seg Neutrophils % Seg Neuts % (Manual) Lymphocytes % (Manual) Monocytes % (Manual) Eosinophils % (Manual) Basophils % (Manual) Nucleated RBC % Seg Neutrophils # Seg Neutrophils # Man Lymphocytes # (Manual) Monocytes # (Manual) Eosinophils # (Manual) Basophils # (Manual) PT INR Fibrinogen dRVVT Confirm Interp Factor V Activity POC ABG pH POC ABG pCO2 POC ABG pO2 ABG pO2 ABG HCO3 ABG Base Excess ABG Hemoglobin Oxyhemoglobin Sodium Potassium Chloride Carbon Dioxide BUN Creatinine Glucose POC Glucose 124 H 160 H Lactic Acid Calcium Phosphorus Magnesium Direct Bilirubin AST ALT Alkaline Phosphatase Lactate Dehydrogenase Troponin T C-Reactive Protein Total Protein Albumin Prealbumin Triglycerides Cholesterol LDL Cholesterol Direct HDL Cholesterol PTH Intact Urine pH Urine WBC (Auto) Urine Creatinine Urine Total Protein Fluid Total Protein Vancomycin Trough Rheumatoid Factor Complement C4 Miscellaneous Test Crossmatch 02/13/17 02/14/17 02/14/17 18:09 06:16 08:08 WBC 15.2 H RBC 2.97 L Hgb 8.1 L Hct 26.3 L MCV MCH MCHC RDW 19.3 H Plt Count Lymph % (Auto) [place] % (Auto) Lymph # [place] # Baso # Seg Neutrophils % Seg Neuts % (Manual) Lymphocytes % (Manual) Monocytes % (Manual) Eosinophils % (Manual) Basophils % (Manual) Nucleated RBC % Seg Neutrophils # Seg Neutrophils # Man Lymphocytes # (Manual) Monocytes # (Manual) Eosinophils # (Manual) Basophils # (Manual) PT INR Fibrinogen dRVVT Confirm Interp Factor V Activity POC ABG pH POC ABG pCO2 POC ABG pO2 ABG pO2 ABG HCO3 ABG Base Excess ABG Hemoglobin Oxyhemoglobin Sodium Potassium Chloride Carbon Dioxide BUN Creatinine Glucose POC Glucose 110 H 112 H Lactic Acid Calcium Phosphorus Magnesium Direct Bilirubin AST ALT Alkaline Phosphatase Lactate Dehydrogenase Troponin T C-Reactive Protein Total Protein Albumin Prealbumin Triglycerides Cholesterol LDL Cholesterol Direct HDL Cholesterol PTH Intact Urine pH Urine WBC (Auto) Urine Creatinine Urine Total Protein Fluid Total Protein Vancomycin Trough Rheumatoid Factor Complement C4 Miscellaneous Test Crossmatch 02/14/17 08:08 WBC RBC Hgb Hct MCV MCH MCHC RDW Plt Count Lymph % (Auto) [place] % (Auto) Lymph # [place] # Baso # Seg Neutrophils % Seg Neuts % (Manual) Lymphocytes % (Manual) Monocytes % (Manual) Eosinophils % (Manual) Basophils % (Manual) Nucleated RBC % Seg Neutrophils # Seg Neutrophils # Man Lymphocytes # (Manual) Monocytes # (Manual) Eosinophils # (Manual) Basophils # (Manual) PT INR Fibrinogen dRVVT Confirm Interp Factor V Activity POC ABG pH POC ABG pCO2 POC ABG pO2 ABG pO2 ABG HCO3 ABG Base Excess ABG Hemoglobin Oxyhemoglobin Sodium Potassium Chloride Carbon Dioxide 18 L BUN 79 H Creatinine 2.1 H Glucose POC Glucose Lactic Acid Calcium Phosphorus 1.70 L D Magnesium 1.60 L Direct Bilirubin AST ALT Alkaline Phosphatase Lactate Dehydrogenase Troponin T C-Reactive Protein Total Protein Albumin Prealbumin Triglycerides Cholesterol LDL Cholesterol Direct HDL Cholesterol PTH Intact Urine pH Urine WBC (Auto) Urine Creatinine Urine Total Protein Fluid Total Protein Vancomycin Trough Rheumatoid Factor Complement C4 Miscellaneous Test Crossmatch Allied health notes reviewed: RT (Has been on PS 15, no desaturations today)
[2017-02-14] MEDS ORDERED: TPN ADULT IV SCH (20:00)
[2017-02-15] MEDS: REGLAN IV SCH ×3 (05:46→22:42)
[2017-02-15 06:00] LABS: Calcium 10.7 mg/dL (8.4-10.2)
[2017-02-15] MEDS: HumuLIN R SUB-Q SCH ×3 (06:39→18:10)
[2017-02-15] MEDS: DUONEB *Not for PRN Use IH SCH ×3 (07:11→19:21)
[2017-02-15] MEDS: ROBINUL PO SCH ×3 (08:07→22:43)
[2017-02-15] MEDS: PROTONIX FEEDTUBE SCH (09:46)
[2017-02-15] MEDS: MAG-OX PO SCH (09:46)
[2017-02-15] MEDS: HEPARIN SUB-Q SCH ×2 (09:46→22:43)
--- NOTE | 2017-02-15 10:18 | Progress Note ---
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 UF as tolerated. Patient's serum creatinine is noted to be low - due to wasting of muscle mass. Needs to be maintained on dialysis at this time. * Will obtain hypercalcemia work up - likely due to immobilization * Adjust Ca bath with dialysis * Transfuse pRBC per primary team. Epogen TIW prn * Vent management per pulm/CCM * Pressors prn for MAP>65 * Dose medications for renal function Subjective Date of service: 02/15/17 Principal diagnosis: Acute resp failure on MVS; S/P Acute CVA; Acute Encephalopathy; JUANITA Interval history: No acute events overnight. Objective - Vital Signs Vital signs: Vital Signs - 12hr 02/14/17 02/14/17 02/15/17 23:00 23:53 00:00 Temperature 99.3 F Pulse Rate 114 H 122 H 117 H Pulse Rate [ 116 H Apical] Pulse Rate [ Throughout] Respiratory 22 25 H Rate Respiratory Rate [ Throughout] Blood Pressure 98/47 94/46 94/46 O2 Sat by Pulse 94 97 98 Oximetry O2 Sat by Pulse Oximetry [ Assessment] 02/15/17 02/15/17 02/15/17 00:30 01:00 02:00 Temperature Pulse Rate 111 H 110 H Pulse Rate [ Apical] Pulse Rate [ Throughout] Respiratory 21 22 Rate Respiratory Rate [ Throughout] Blood Pressure 106/54 104/53 O2 Sat by Pulse 97 96 Oximetry O2 Sat by Pulse 97 Oximetry [ Assessment] 02/15/17 02/15/17 02/15/17 03:00 04:00 05:00 Temperature 100.0 F H Pulse Rate 108 H 109 H 108 H Pulse Rate [ 110 H Apical] Pulse Rate [ Throughout] Respiratory 19 22 15 Rate Respiratory Rate [ Throughout] Blood Pressure 99/47 102/57 103/52 O2 Sat by Pulse 96 96 97 Oximetry O2 Sat by Pulse Oximetry [ Assessment] 02/15/17 02/15/17 02/15/17 06:00 07:00 07:11 Temperature Pulse Rate 141 H 132 H Pulse Rate [ Apical] Pulse Rate [ 110 H Throughout] Respiratory 26 H 28 H Rate Respiratory 20 Rate [ Throughout] Blood Pressure 110/77 110/77 O2 Sat by Pulse 94 Oximetry O2 Sat by Pulse Oximetry [ Assessment] 02/15/17 02/15/17 02/15/17 07:27 07:29 07:36 Temperature Pulse Rate 132 H Pulse Rate [ Apical] Pulse Rate [ 114 H Throughout] Respiratory Rate Respiratory 20 Rate [ Throughout] Blood Pressure 110/77 O2 Sat by Pulse 94 Oximetry O2 Sat by Pulse 98 Oximetry [ Assessment] 02/15/17 08:00 Temperature 98.6 F Pulse Rate Pulse Rate [ Apical] Pulse Rate [ Throughout] Respiratory Rate Respiratory Rate [ Throughout] Blood Pressure O2 Sat by Pulse Oximetry O2 Sat by Pulse Oximetry [ Assessment] - General Appearance General appearance: chronically ill, intubated (via trach) EENT: ATNC Neck: other (trach) Respiratory: Present: Other (coarse BS) Cardiology: tachycardia Gastrointestinal: no distended Psychiatric: other (does not respond to tactile or verbal stimuli) - Lab 02/14/17 08:08 02/15/17 04:15 Most recent lab results ABG pH 7.450 pH Units (7.350-7.450) 12/05/16 Unknown ABG pCO2 29.6 mm Hg 12/05/16 Unknown ABG pO2 75.2 mm Hg (80.0-90.0) L 12/05/16 Unknown ABG HCO3 20.1 mmol/L (20.0-26.0) 12/05/16 Unknown ABG O2 Saturation 96.8 % (95.0-99.0) 12/05/16 Unknown Calcium 10.7 mg/dL (8.4-10.2) H 02/15/17 04:15 Phosphorus 3.50 mg/dL (2.5-4.5) D 02/15/17 04:15 Magnesium 2.00 mg/dL (1.7-2.3) 02/15/17 04:15 Urine Creatinine 19.7 mg/dL (0.1-20.0) 11/12/16 10:18 Urine Sodium 36 mEq/L 09/16/16 19:19 Urine Total Protein 16 mg/dL (5-11.8) H 09/16/16 19:19
--- NOTE | 2017-02-15 11:27 | Progress Note ---
Assessment and Plan Patient is 46-year-old woman with a history of hypertension, diabetes mellitus, asthma, hyperlipidemia, chronic kidney disease and anxiety, who was brought in by family because she couldn't get her words out, her face was also twisted, she was admitted for acute CVA and accelerated hypertension, she had a hx of poor adherence with her medications, and uncontrolled hypertension. Patient's SBP on admission was noted be greater than 260. TPA was started but this it was discontinued after 5 minutes because her blood pressure became uncontrolled. The TPA was not initiated again because the patient was outside the TPA window. Patient has had a prolonged hospital stay complicated with recurrent severe sepsis. Patient with most recent event also status post cardiac arrest on 11/21/16 , with CPR and ROSC. Acute on chronic Hypoxemic Respiratory Failure Sepsis -recurrent s/p tracheostomy Hypertension Atrial Fibrillation with RVR Acute encephalopathy s/p CVA Oropharyngeal dysphagia Enterococcal bacteremia Sacral Decubitus Ulcer- unstageable s/p debridement Anemia Obesity JUANITA now on hemodialysis Enteric Fistula - VAP bundle addressed - continue NGT to LIS - continue wound care/wound vac per WCT - Vasopressor if MAP falls < 65mmHg - keep on with daily PSV trials and / or T-piece as tolerated - continue TPN administration (continue TPN; NPO except for meds) - continue airway clearance and secretion management - continue to wean FiO2 for sats > 94% - continue to monitor hemodynamics closely - continue HD/UF per nephrology - continue to follow electrolytes and correct as necessary - continue GI & VTE prophylaxis Transfuse 1 unit PRBC as needed to keep HgH>7g/dL .....she remains critically ill on life sustaining interventions including MVS and at risk for further deterioration including ...fpc prognosis remains poor - Patient Problems (1) Acute respiratory failure with hypoxia Current Visit: Yes Status: Acute (2) Acute blood loss anemia Current Visit: Yes Status: Resolved (3) Acute CVA (cerebrovascular accident) Current Visit: Yes Status: Acute (4) Chronic renal insufficiency Current Visit: Yes Status: Acute (5) Uncontrolled hypertension Current Visit: Yes Status: Acute (6) Leukocytosis (leucocytosis) Current Visit: Yes Status: Acute Qualifiers: Leukocytosis type: leukemoid reaction Qualified Code(s): D72.823 - Leukemoid reaction (7) Dislodged gastrostomy tube Current Visit: Yes Status: Acute (8) Fungemia Current Visit: Yes Status: Resolved (9) Cardiopulmonary arrest with successful resuscitation Current Visit: Yes Status: Acute Subjective Date of service: 02/15/17 Principal diagnosis: Acute resp failure on MVS; S/P Acute CVA; Acute Encephalopathy; JUANITA Interval history: Patient is seen today for: Acute resp failure on MVS; S/P Acute CVA; Acute Encephalopathy; JUANITA Seen and examined at bedside; 24hour events reviewed; nursing and respiratory care staff consulted; no adverse overnight events reported to me; she remains critically ill Patient was made DNR on 02/12/2017 by family, see hospitalist documentation. Draining feces from the abdominal pouch Vitals, labs, medications, chart reviewed. Discussed with RT Objective - Exam Narrative Exam: General appearance: alert non communicative, on the vent via trach in mild resp distress, no following commands Eyes: anicteric sclera, moist conjunctivae; PERRLA HENT: Atraumatic; oropharynx limited; Normal external ears. +NGT with greenish secretion Neck: +trach in place; supple, no thyromegaly or lymphadenopathy Lungs: brit coarse BS CV: tachy Abdomen: Soft, tender, +old PEG site no drainage. +iliostomy. Right sided Surgical site x 2 with ostomy bags Extremities: +peripheral edema Skin: sacral area wounds - per wound care STAGE 4 PRESSURE INJURY TO SACRAL MEASURES [id number], Psych: somnolent . Neuro: alert non verbal on the vent. Lines: PICC / gutierrez Vital Signs - 12hr 02/14/17 02/15/17 02/15/17 23:53 00:00 00:30 Temperature 99.3 F Pulse Rate 122 H 117 H Pulse Rate [ 116 H Apical] Pulse Rate [ Throughout] Respiratory 25 H Rate Respiratory Rate [ Throughout] Blood Pressure 94/46 94/46 O2 Sat by Pulse 97 98 Oximetry O2 Sat by Pulse 97 Oximetry [ Assessment] O2 Sat by Pulse Oximetry [ Throughout] 02/15/17 02/15/17 02/15/17 01:00 02:00 03:00 Temperature Pulse Rate 111 H 110 H 108 H Pulse Rate [ Apical] Pulse Rate [ Throughout] Respiratory 21 22 19 Rate Respiratory Rate [ Throughout] Blood Pressure 106/54 104/53 99/47 O2 Sat by Pulse 97 96 96 Oximetry O2 Sat by Pulse Oximetry [ Assessment] O2 Sat by Pulse Oximetry [ Throughout] 02/15/17 02/15/17 02/15/17 04:00 05:00 06:00 Temperature 100.0 F H Pulse Rate 109 H 108 H 141 H Pulse Rate [ 110 H Apical] Pulse Rate [ Throughout] Respiratory 22 15 26 H Rate Respiratory Rate [ Throughout] Blood Pressure 102/57 103/52 110/77 O2 Sat by Pulse 96 97 94 Oximetry O2 Sat by Pulse Oximetry [ Assessment] O2 Sat by Pulse Oximetry [ Throughout] 02/15/17 02/15/17 02/15/17 07:00 07:11 07:27 Temperature Pulse Rate 132 H 132 H Pulse Rate [ Apical] Pulse Rate [ 110 H Throughout] Respiratory 28 H Rate Respiratory 20 Rate [ Throughout] Blood Pressure 110/77 110/77 O2 Sat by Pulse 94 Oximetry O2 Sat by Pulse Oximetry [ Assessment] O2 Sat by Pulse Oximetry [ Throughout] 02/15/17 02/15/17 02/15/17 07:29 07:36 08:00 Temperature 98.6 F Pulse Rate 137 H Pulse Rate [ Apical] Pulse Rate [ 114 H Throughout] Respiratory 32 H Rate Respiratory 20 Rate [ Throughout] Blood Pressure 111/57 O2 Sat by Pulse 94 Oximetry O2 Sat by Pulse 98 Oximetry [ Assessment] O2 Sat by Pulse Oximetry [ Throughout] 02/15/17 02/15/17 02/15/17 08:30 09:00 10:00 Temperature Pulse Rate 127 H 137 H Pulse Rate [ 137 H Apical] Pulse Rate [ Throughout] Respiratory 32 H 23 28 H Rate Respiratory Rate [ Throughout] Blood Pressure 112/63 112/63 O2 Sat by Pulse 94 97 Oximetry O2 Sat by Pulse Oximetry [ Assessment] O2 Sat by Pulse Oximetry [ Throughout] 02/15/17 02/15/17 10:40 11:00 Temperature 98.6 F Pulse Rate 111 H 124 H Pulse Rate [ Apical] Pulse Rate [ Throughout] Respiratory 18 Rate Respiratory Rate [ Throughout] Blood Pressure 92/53 O2 Sat by Pulse 97 Oximetry O2 Sat by Pulse Oximetry [ Assessment] O2 Sat by Pulse 99 Oximetry [ Throughout] Constitutional: appears uncomfortable, other (not tracking) Eyes: non-icteric, other (tracheostomy tube in midline of neck) ENT: oropharynx moist, oropharyngeal exudate pre Neck: supple, no lymphadenopathy, no JVD, other (no thyromegaly) Effort: mildly labored Ascultation: Bilateral: clear, diminished breath sounds (bases R>L), rales, rhonchi (and referred upper airway sounds) Percussion: Right: dull (base), Bilateral: not dull Cardiovascular: regular rate and rhythm, other (no rubs / murmurs) Gastrointestinal: hypoactive bowel sounds, soft, non-tender, non-distended, other (RLQ & LUQ stomas with colostomy bags) Integumentary: decubitus ulcer (sacral; stage 4 s/p surgical debridement), other (no rash; no cellulitis; poor turgor) Extremities: no cyanosis, pulses normal, no ischemia or petechiae, edema (1+ bilaterally) Neurologic: pupils equal and round, unable to assess, other (encephalopathic) Psychiatric: other (unable to assess) CBC and BMP: 02/24/17 10:05 03/08/17 05:15 ABG, PT/INR, D-dimer: ABG POC ABG pH 7.436 (7.35-7.45) 01/20/17 12:17 ABG pH 7.450 pH Units (7.350-7.450) 12/05/16 Unknown POC ABG pCO2 35.3 (35-45) 01/20/17 12: ABG pCO2 29.6 mm Hg 12/05/16 Unknown POC ABG pO2 70 (80-105) L 01/20/17 12:17 ABG pO2 75.2 mm Hg (80.0-90.0) L 12/05/16 Unknown POC ABG HCO3 23.8 01/20/17 12:17 POC ABG Total CO2 25 01/20/17 12:17 POC ABG O2 Sat 94 01/20/17 12:17 ABG O2 Saturation 96.8 % (95.0-99.0) 12/05/16 Unknown PT/INR, D-dimer PT 15.4 Sec. (12.2-14.9) H 01/13/17 15:50 INR 1.16 (0.87-1.13) H 01/13/17 15:50 Abnormal lab findings: Abnormal Labs 09/03/16 09/03/16 09/03/16 00:03 00:10 00:10 WBC 13.9 H RBC 5.95 H Hgb Hct 44.0 H MCV 74 L MCH 22 L MCHC RDW 17.5 H Plt Count Lymph % (Auto) [place] % (Auto) Lymph # [place] # Baso # Seg Neutrophils % Seg Neuts % (Manual) Lymphocytes % (Manual) 54.0 H Monocytes % (Manual) Eosinophils % (Manual) Basophils % (Manual) Nucleated RBC % Seg Neutrophils # Seg Neutrophils # Man Lymphocytes # (Manual) 7.5 H Monocytes # (Manual) Eosinophils # (Manual) Basophils # (Manual) PT INR Fibrinogen dRVVT Confirm Interp Factor V Activity POC ABG pH POC ABG pCO2 POC ABG pO2 ABG pO2 ABG HCO3 ABG Base Excess ABG Hemoglobin Oxyhemoglobin Sodium Potassium 2.8 L* Chloride Carbon Dioxide 21 L BUN Creatinine 1.7 H Glucose 159 H POC Glucose 177 H Lactic Acid Calcium Phosphorus Magnesium Direct Bilirubin AST ALT Alkaline Phosphatase Lactate Dehydrogenase Troponin T C-Reactive Protein Total Protein Albumin Prealbumin Triglycerides Cholesterol LDL Cholesterol Direct HDL Cholesterol PTH Intact Urine pH Urine WBC (Auto) Urine Creatinine Urine Total Protein Fluid Total Protein Vancomycin Trough Rheumatoid Factor Complement C4 Miscellaneous Test Crossmatch 09/03/16 09/03/16 09/03/16 12:12 15:07 16:20 WBC RBC Hgb Hct MCV MCH MCHC RDW Plt Count Lymph % (Auto) [place] % (Auto) Lymph # [place] # Baso # Seg Neutrophils % Seg Neuts % (Manual) Lymphocytes % (Manual) Monocytes % (Manual) Eosinophils % (Manual) Basophils % (Manual) Nucleated RBC % Seg Neutrophils # Seg Neutrophils # Man Lymphocytes # (Manual) Monocytes # (Manual) Eosinophils # (Manual) Basophils # (Manual) PT INR Fibrinogen dRVVT Confirm Interp Factor V Activity POC ABG pH 7.452 H POC ABG pCO2 POC ABG pO2 ABG pO2 ABG HCO3 ABG Base Excess ABG Hemoglobin Oxyhemoglobin Sodium Potassium Chloride Carbon Dioxide BUN Creatinine Glucose POC Glucose 178 H Lactic Acid Calcium Phosphorus 2.20 L Magnesium 1.60 L Direct Bilirubin AST ALT Alkaline Phosphatase Lactate Dehydrogenase Troponin T C-Reactive Protein Total Protein Albumin Prealbumin Triglycerides Cholesterol LDL Cholesterol Direct HDL Cholesterol PTH Intact Urine pH Urine WBC (Auto) Urine Creatinine Urine Total Protein Fluid Total Protein Vancomycin Trough Rheumatoid Factor Complement C4 Miscellaneous Test Crossmatch 09/03/16 09/03/16 09/03/16 17:57 17:58 23:50 WBC RBC Hgb Hct MCV MCH MCHC RDW Plt Count Lymph % (Auto) [place] % (Auto) Lymph # [place] # Baso # Seg Neutrophils % Seg Neuts % (Manual) Lymphocytes % (Manual) Monocytes % (Manual) Eosinophils % (Manual) Basophils % (Manual) Nucleated RBC % Seg Neutrophils # Seg Neutrophils # Man Lymphocytes # (Manual) Monocytes # (Manual) Eosinophils # (Manual) Basophils # (Manual) PT INR Fibrinogen dRVVT Confirm Interp Factor V Activity POC ABG pH POC ABG pCO2 POC ABG pO2 ABG pO2 ABG HCO3 ABG Base Excess ABG Hemoglobin Oxyhemoglobin Sodium Potassium Chloride Carbon Dioxide BUN Creatinine Glucose POC Glucose 162 H 145 H Lactic Acid Calcium Phosphorus 2.30 L Magnesium Direct Bilirubin AST ALT Alkaline Phosphatase Lactate Dehydrogenase Troponin T C-Reactive Protein Total Protein Albumin Prealbumin Triglycerides Cholesterol LDL Cholesterol Direct HDL Cholesterol PTH Intact Urine pH Urine WBC (Auto) Urine Creatinine Urine Total Protein Fluid Total Protein Vancomycin Trough Rheumatoid Factor Complement C4 Miscellaneous Test Crossmatch 09/04/16 09/04/16 09/04/16 03:31 03:31 05:42 WBC RBC Hgb 9.7 L D Hct MCV 72 L MCH 23 L MCHC RDW 17.5 H Plt Count Lymph % (Auto) 11.1 L [place] % (Auto) Lymph # [place] # Baso # Seg Neutrophils % 84.3 H Seg Neuts % (Manual) Lymphocytes % (Manual) Monocytes % (Manual) Eosinophils % (Manual) Basophils % (Manual) Nucleated RBC % Seg Neutrophils # 8.9 H Seg Neutrophils # Man Lymphocytes # (Manual) Monocytes # (Manual) Eosinophils # (Manual) Basophils # (Manual) PT INR Fibrinogen dRVVT Confirm Interp Factor V Activity POC ABG pH POC ABG pCO2 POC ABG pO2 ABG pO2 ABG HCO3 ABG Base Excess ABG Hemoglobin Oxyhemoglobin Sodium 135 L Potassium 2.9 L* Chloride 97.2 L Carbon Dioxide 19 L BUN Creatinine 1.7 H Glucose 170 H POC Glucose 152 H Lactic Acid Calcium Phosphorus Magnesium Direct Bilirubin AST ALT Alkaline Phosphatase Lactate Dehydrogenase Troponin T C-Reactive Protein Total Protein Albumin Prealbumin Triglycerides 160 H Cholesterol LDL Cholesterol Direct HDL Cholesterol 31 L PTH Intact Urine pH Urine WBC (Auto) Urine Creatinine Urine Total Protein Fluid Total Protein Vancomycin Trough Rheumatoid Factor Complement C4 Miscellaneous Test Crossmatch 09/04/16 09/04/16 09/04/16 11:34 17:46 23:29 WBC RBC Hgb Hct MCV MCH MCHC RDW Plt Count Lymph % (Auto) [place] % (Auto) Lymph # [place] # Baso # Seg Neutrophils % Seg Neuts % (Manual) Lymphocytes % (Manual) Monocytes % (Manual) Eosinophils % (Manual) Basophils % (Manual) Nucleated RBC % Seg Neutrophils # Seg Neutrophils # Man Lymphocytes # (Manual) Monocytes # (Manual) Eosinophils # (Manual) Basophils # (Manual) PT INR Fibrinogen dRVVT Confirm Interp Factor V Activity POC ABG pH POC ABG pCO2 POC ABG pO2 ABG pO2 ABG HCO3 ABG Base Excess ABG Hemoglobin Oxyhemoglobin Sodium Potassium Chloride Carbon Dioxide BUN Creatinine Glucose POC Glucose 165 H 210 H 139 H Lactic Acid Calcium Phosphorus Magnesium Direct Bilirubin AST ALT Alkaline Phosphatase Lactate Dehydrogenase Troponin T C-Reactive Protein Total Protein Albumin Prealbumin Triglycerides Cholesterol LDL Cholesterol Direct HDL Cholesterol PTH Intact Urine pH Urine WBC (Auto) Urine Creatinine Urine Total Protein Fluid Total Protein Vancomycin Trough Rheumatoid Factor Complement C4 Miscellaneous Test Crossmatch 09/05/16 09/05/16 09/05/16 04:05 04:05 05:38 WBC RBC Hgb Hct MCV 76 L D MCH 23 L MCHC RDW 17.8 H Plt Count Lymph % (Auto) [place] % (Auto) Lymph # [place] # Baso # Seg Neutrophils % Seg Neuts % (Manual) Lymphocytes % (Manual) Monocytes % (Manual) Eosinophils % (Manual) Basophils % (Manual) Nucleated RBC % Seg Neutrophils # Seg Neutrophils # Man Lymphocytes # (Manual) Monocytes # (Manual) Eosinophils # (Manual) Basophils # (Manual) PT INR Fibrinogen dRVVT Confirm Interp Factor V Activity POC ABG pH POC ABG pCO2 POC ABG pO2 ABG pO2 ABG HCO3 ABG Base Excess ABG Hemoglobin Oxyhemoglobin Sodium 134 L Potassium Chloride Carbon Dioxide 18 L BUN Creatinine 1.8 H Glucose 192 H POC Glucose 175 H Lactic Acid Calcium Phosphorus Magnesium Direct Bilirubin AST ALT Alkaline Phosphatase Lactate Dehydrogenase Troponin T C-Reactive Protein Total Protein Albumin Prealbumin Triglycerides Cholesterol LDL Cholesterol Direct HDL Cholesterol PTH Intact Urine pH Urine WBC (Auto) Urine Creatinine Urine Total Protein Fluid Total Protein Vancomycin Trough Rheumatoid Factor Complement C4 Miscellaneous Test Crossmatch 09/05/16 09/05/16 09/05/16 11:38 17:48 23:22 WBC RBC Hgb Hct MCV MCH MCHC RDW Plt Count Lymph % (Auto) [place] % (Auto) Lymph # [place] # Baso # Seg Neutrophils % Seg Neuts % (Manual) Lymphocytes % (Manual) Monocytes % (Manual) Eosinophils % (Manual) Basophils % (Manual) Nucleated RBC % Seg Neutrophils # Seg Neutrophils # Man Lymphocytes # (Manual) Monocytes # (Manual) Eosinophils # (Manual) Basophils # (Manual) PT INR Fibrinogen dRVVT Confirm Interp Factor V Activity POC ABG pH POC ABG pCO2 POC ABG pO2 ABG pO2 ABG HCO3 ABG Base Excess ABG Hemoglobin Oxyhemoglobin Sodium Potassium Chloride Carbon Dioxide BUN Creatinine Glucose POC Glucose 164 H 186 H 195 H Lactic Acid Calcium Phosphorus Magnesium Direct Bilirubin AST ALT Alkaline Phosphatase Lactate Dehydrogenase Troponin T C-Reactive Protein Total Protein Albumin Prealbumin Triglycerides Cholesterol LDL Cholesterol Direct HDL Cholesterol PTH Intact Urine pH Urine WBC (Auto) Urine Creatinine Urine Total Protein Fluid Total Protein Vancomycin Trough Rheumatoid Factor Complement C4 Miscellaneous Test Crossmatch 09/06/16 09/06/16 09/06/16 04:12 05:59 07:32 WBC RBC Hgb Hct MCV MCH MCHC RDW Plt Count Lymph % (Auto) [place] % (Auto) Lymph # [place] # Baso # Seg Neutrophils % Seg Neuts % (Manual) Lymphocytes % (Manual) Monocytes % (Manual) Eosinophils % (Manual) Basophils % (Manual) Nucleated RBC % Seg Neutrophils # Seg Neutrophils # Man Lymphocytes # (Manual) Monocytes # (Manual) Eosinophils # (Manual) Basophils # (Manual) PT INR Fibrinogen dRVVT Confirm Interp Factor V Activity POC ABG pH 7.514 H POC ABG pCO2 29.1 L POC ABG pO2 72 L ABG pO2 ABG HCO3 ABG Base Excess ABG Hemoglobin Oxyhemoglobin Sodium 133 L Potassium 3.4 L Chloride 94.9 L Carbon Dioxide 19 L BUN 30 H Creatinine 2.1 H Glucose 139 H POC Glucose 146 H Lactic Acid Calcium Phosphorus Magnesium Direct Bilirubin AST ALT Alkaline Phosphatase Lactate Dehydrogenase Troponin T C-Reactive Protein Total Protein Albumin Prealbumin Triglycerides Cholesterol LDL Cholesterol Direct HDL Cholesterol PTH Intact Urine pH Urine WBC (Auto) Urine Creatinine Urine Total Protein Fluid Total Protein Vancomycin Trough Rheumatoid Factor Complement C4 Miscellaneous Test Crossmatch 09/06/16 09/06/16 09/06/16 11:57 17:58 19:02 WBC RBC Hgb Hct MCV MCH MCHC RDW Plt Count Lymph % (Auto) [place] % (Auto) Lymph # [place] # Baso # Seg Neutrophils % Seg Neuts % (Manual) Lymphocytes % (Manual) Monocytes % (Manual) Eosinophils % (Manual) Basophils % (Manual) Nucleated RBC % Seg Neutrophils # Seg Neutrophils # Man Lymphocytes # (Manual) Monocytes # (Manual) Eosinophils # (Manual) Basophils # (Manual) PT INR Fibrinogen dRVVT Confirm Interp Factor V Activity POC ABG pH 7.465 H POC ABG pCO2 32.0 L POC ABG pO2 ABG pO2 ABG HCO3 ABG Base Excess ABG Hemoglobin Oxyhemoglobin Sodium Potassium Chloride Carbon Dioxide BUN Creatinine Glucose POC Glucose 165 H 160 H Lactic Acid Calcium Phosphorus Magnesium Direct Bilirubin AST ALT Alkaline Phosphatase Lactate Dehydrogenase Troponin T C-Reactive Protein Total Protein Albumin Prealbumin Triglycerides Cholesterol LDL Cholesterol Direct HDL Cholesterol PTH Intact Urine pH Urine WBC (Auto) Urine Creatinine Urine Total Protein Fluid Total Protein Vancomycin Trough Rheumatoid Factor Complement C4 Miscellaneous Test Crossmatch 09/06/16 09/07/16 09/07/16 23:45 02:47 02:47 WBC RBC Hgb Hct MCV MCH MCHC RDW Plt Count Lymph % (Auto) [place] % (Auto) Lymph # [place] # Baso # Seg Neutrophils % Seg Neuts % (Manual) Lymphocytes % (Manual) Monocytes % (Manual) Eosinophils % (Manual) Basophils % (Manual) Nucleated RBC % Seg Neutrophils # Seg Neutrophils # Man Lymphocytes # (Manual) Monocytes # (Manual) Eosinophils # (Manual) Basophils # (Manual) PT INR Fibrinogen dRVVT Confirm Interp Factor V Activity POC ABG pH POC ABG pCO2 POC ABG pO2 ABG pO2 ABG HCO3 ABG Base Excess ABG Hemoglobin Oxyhemoglobin Sodium Potassium Chloride Carbon Dioxide BUN Creatinine Glucose POC Glucose 204 H Lactic Acid Calcium Phosphorus Magnesium Direct Bilirubin AST ALT Alkaline Phosphatase Lactate Dehydrogenase Troponin T C-Reactive Protein Total Protein Albumin Prealbumin Triglycerides Cholesterol LDL Cholesterol Direct HDL Cholesterol PTH Intact Urine pH Urine WBC (Auto) 68.0 H Urine Creatinine 106.1 H Urine Total Protein Fluid Total Protein Vancomycin Trough Rheumatoid Factor Complement C4 Miscellaneous Test Crossmatch 09/07/16 09/07/16 09/07/16 04:50 06:19 06:39 WBC RBC Hgb Hct MCV MCH MCHC RDW Plt Count Lymph % (Auto) [place] % (Auto) Lymph # [place] # Baso # Seg Neutrophils % Seg Neuts % (Manual) Lymphocytes % (Manual) Monocytes % (Manual) Eosinophils % (Manual) Basophils % (Manual) Nucleated RBC % Seg Neutrophils # Seg Neutrophils # Man Lymphocytes # (Manual) Monocytes # (Manual) Eosinophils # (Manual) Basophils # (Manual) PT INR Fibrinogen dRVVT Confirm Interp Factor V Activity POC ABG pH 7.457 H POC ABG pCO2 32.1 L POC ABG pO2 76 L ABG pO2 ABG HCO3 ABG Base Excess ABG Hemoglobin Oxyhemoglobin Sodium 132 L Potassium Chloride 94.7 L Carbon Dioxide BUN 53 H Creatinine 2.9 H Glucose 151 H POC Glucose 149 H Lactic Acid Calcium Phosphorus Magnesium Direct Bilirubin AST ALT Alkaline Phosphatase Lactate Dehydrogenase Troponin T C-Reactive Protein Total Protein Albumin Prealbumin Triglycerides Cholesterol LDL Cholesterol Direct HDL Cholesterol PTH Intact Urine pH Urine WBC (Auto) Urine Creatinine Urine Total Protein Fluid Total Protein Vancomycin Trough Rheumatoid Factor Complement C4 Miscellaneous Test Crossmatch 09/07/16 09/07/16 09/07/16 09:20 11:43 11:43 WBC 19.4 H RBC Hgb 8.3 L Hct 26.4 L D MCV 72 L D MCH 22 L MCHC RDW 17.9 H Plt Count Lymph % (Auto) 8.5 L [place] % (Auto) Lymph # [place] # 1.0 H Baso # Seg Neutrophils % 85.8 H Seg Neuts % (Manual) Lymphocytes % (Manual) Monocytes % (Manual) Eosinophils % (Manual) Basophils % (Manual) Nucleated RBC % Seg Neutrophils # 16.6 H Seg Neutrophils # Man Lymphocytes # (Manual) Monocytes # (Manual) Eosinophils # (Manual) Basophils # (Manual) PT INR Fibrinogen dRVVT Confirm Interp Factor V Activity POC ABG pH POC ABG pCO2 POC ABG pO2 ABG pO2 ABG HCO3 ABG Base Excess ABG Hemoglobin Oxyhemoglobin Sodium 134 L Potassium Chloride 97.2 L Carbon Dioxide 20 L BUN 58 H Creatinine 2.9 H Glucose 147 H POC Glucose Lactic Acid Calcium Phosphorus 2.40 L Magnesium 2.40 H Direct Bilirubin AST ALT Alkaline Phosphatase Lactate Dehydrogenase Troponin T C-Reactive Protein Total Protein 5.8 L Albumin 2.2 L Prealbumin Triglycerides Cholesterol LDL Cholesterol Direct HDL Cholesterol PTH Intact Urine pH Urine WBC (Auto) Urine Creatinine Urine Total Protein Fluid Total Protein Vancomycin Trough Rheumatoid Factor Complement C4 58 H Miscellaneous Test Crossmatch 09/07/16 09/07/16 09/07/16 11:50 16:00 17:31 WBC RBC Hgb Hct MCV MCH MCHC RDW Plt Count Lymph % (Auto) [place] % (Auto) Lymph # [place] # Baso # Seg Neutrophils % Seg Neuts % (Manual) Lymphocytes % (Manual) Monocytes % (Manual) Eosinophils % (Manual) Basophils % (Manual) Nucleated RBC % Seg Neutrophils # Seg Neutrophils # Man Lymphocytes # (Manual) Monocytes # (Manual) Eosinophils # (Manual) Basophils # (Manual) PT INR Fibrinogen dRVVT Confirm Interp Factor V Activity POC ABG pH POC ABG pCO2 POC ABG pO2 158 H ABG pO2 ABG HCO3 ABG Base Excess ABG Hemoglobin Oxyhemoglobin Sodium Potassium Chloride Carbon Dioxide BUN Creatinine Glucose POC Glucose 175 H Lactic Acid Calcium Phosphorus Magnesium Direct Bilirubin AST ALT Alkaline Phosphatase Lactate Dehydrogenase Troponin T C-Reactive Protein Total Protein Albumin Prealbumin Triglycerides Cholesterol LDL Cholesterol Direct HDL Cholesterol PTH Intact Urine pH Urine WBC (Auto) Urine Creatinine 66.3 H Urine Total Protein Fluid Total Protein Vancomycin Trough Rheumatoid Factor Complement C4 Miscellaneous Test Crossmatch 09/07/16 09/08/16 09/08/16 23:50 05:46 06:18 WBC 17.8 H RBC 3.58 L Hgb 8.1 L Hct 25.5 L MCV 71 L MCH 23 L MCHC RDW 18.4 H Plt Count Lymph % (Auto) [place] % (Auto) Lymph # [place] # Baso # Seg Neutrophils % Seg Neuts % (Manual) 92.0 H Lymphocytes % (Manual) 6.0 L Monocytes % (Manual) Eosinophils % (Manual) Basophils % (Manual) Nucleated RBC % Seg Neutrophils # Seg Neutrophils # Man 16.4 H Lymphocytes # (Manual) 1.1 L Monocytes # (Manual) Eosinophils # (Manual) Basophils # (Manual) PT INR Fibrinogen dRVVT Confirm Interp Factor V Activity POC ABG pH POC ABG pCO2 34.3 L POC ABG pO2 71 L ABG pO2 ABG HCO3 ABG Base Excess ABG Hemoglobin Oxyhemoglobin Sodium Potassium Chloride Carbon Dioxide BUN Creatinine Glucose POC Glucose 216 H Lactic Acid Calcium Phosphorus Magnesium Direct Bilirubin AST ALT Alkaline Phosphatase Lactate Dehydrogenase Troponin T C-Reactive Protein Total Protein Albumin Prealbumin Triglycerides Cholesterol LDL Cholesterol Direct HDL Cholesterol PTH Intact Urine pH Urine WBC (Auto) Urine Creatinine Urine Total Protein Fluid Total Protein Vancomycin Trough Rheumatoid Factor Complement C4 Miscellaneous Test Crossmatch 09/08/16 09/08/16 09/08/16 06:18 06:51 10:55 WBC RBC Hgb Hct MCV MCH MCHC RDW Plt Count Lymph % (Auto) [place] % (Auto) Lymph # [place] # Baso # Seg Neutrophils % Seg Neuts % (Manual) Lymphocytes % (Manual) Monocytes % (Manual) Eosinophils % (Manual) Basophils % (Manual) Nucleated RBC % Seg Neutrophils # Seg Neutrophils # Man Lymphocytes # (Manual) Monocytes # (Manual) Eosinophils # (Manual) Basophils # (Manual) PT INR Fibrinogen dRVVT Confirm Interp Factor V Activity POC ABG pH POC ABG pCO2 POC ABG pO2 ABG pO2 ABG HCO3 ABG Base Excess ABG Hemoglobin Oxyhemoglobin Sodium 133 L Potassium Chloride 96.9 L Carbon Dioxide 20 L BUN 63 H Creatinine 2.7 H Glucose 195 H POC Glucose 204 H 169 H Lactic Acid Calcium Phosphorus Magnesium Direct Bilirubin AST ALT Alkaline Phosphatase Lactate Dehydrogenase Troponin T C-Reactive Protein Total Protein Albumin Prealbumin Triglycerides Cholesterol LDL Cholesterol Direct HDL Cholesterol PTH Intact Urine pH Urine WBC (Auto) Urine Creatinine Urine Total Protein Fluid Total Protein Vancomycin Trough Rheumatoid Factor Complement C4 Miscellaneous Test Crossmatch 09/08/16 09/08/16 09/08/16 11:48 11:48 11:48 WBC RBC Hgb Hct MCV MCH MCHC RDW Plt Count Lymph % (Auto) [place] % (Auto) Lymph # [place] # Baso # Seg Neutrophils % Seg Neuts % (Manual) Lymphocytes % (Manual) Monocytes % (Manual) Eosinophils % (Manual) Basophils % (Manual) Nucleated RBC % Seg Neutrophils # Seg Neutrophils # Man Lymphocytes # (Manual) Monocytes # (Manual) Eosinophils # (Manual) Basophils # (Manual) PT INR Fibrinogen 750 H dRVVT Confirm Interp Factor V Activity POC ABG pH POC ABG pCO2 POC ABG pO2 ABG pO2 ABG HCO3 ABG Base Excess ABG Hemoglobin Oxyhemoglobin Sodium Potassium Chloride Carbon Dioxide BUN Creatinine Glucose POC Glucose Lactic Acid Calcium Phosphorus Magnesium Direct Bilirubin AST ALT Alkaline Phosphatase Lactate Dehydrogenase Troponin T C-Reactive Protein 15.70 H Total Protein Albumin Prealbumin Triglycerides Cholesterol LDL Cholesterol Direct HDL Cholesterol PTH Intact Urine pH Urine WBC (Auto) Urine Creatinine Urine Total Protein Fluid Total Protein Vancomycin Trough Rheumatoid Factor 24 H Complement C4 Miscellaneous Test Crossmatch 09/08/16 09/08/16 09/09/16 15:35 18:25 00:24 WBC RBC Hgb Hct MCV MCH MCHC RDW Plt Count Lymph % (Auto) [place] % (Auto) Lymph # [place] # Baso # Seg Neutrophils % Seg Neuts % (Manual) Lymphocytes % (Manual) Monocytes % (Manual) Eosinophils % (Manual) Basophils % (Manual) Nucleated RBC % Seg Neutrophils # Seg Neutrophils # Man Lymphocytes # (Manual) Monocytes # (Manual) Eosinophils # (Manual) Basophils # (Manual) PT INR Fibrinogen dRVVT Confirm Interp Factor V Activity 182 H POC ABG pH POC ABG pCO2 POC ABG pO2 ABG pO2 ABG HCO3 ABG Base Excess ABG Hemoglobin Oxyhemoglobin Sodium Potassium Chloride Carbon Dioxide BUN Creatinine Glucose POC Glucose 184 H 216 H Lactic Acid Calcium Phosphorus Magnesium Direct Bilirubin AST ALT Alkaline Phosphatase Lactate Dehydrogenase Troponin T C-Reactive Protein Total Protein Albumin Prealbumin Triglycerides Cholesterol LDL Cholesterol Direct HDL Cholesterol PTH Intact Urine pH Urine WBC (Auto) Urine Creatinine Urine Total Protein Fluid Total Protein Vancomycin Trough Rheumatoid Factor Complement C4 Miscellaneous Test Crossmatch 09/09/16 09/09/16 09/09/16 03:00 03:00 04:04 WBC 27.9 H RBC Hgb 8.7 L Hct 28.1 L MCV 72 L MCH 22 L MCHC RDW 18.4 H Plt Count 485 H Lymph % (Auto) [place] % (Auto) Lymph # [place] # Baso # Seg Neutrophils % Seg Neuts % (Manual) 77.0 H Lymphocytes % (Manual) 9.0 L Monocytes % (Manual) Eosinophils % (Manual) Basophils % (Manual) Nucleated RBC % Seg Neutrophils # Seg Neutrophils # Man 21.5 H Lymphocytes # (Manual) Monocytes # (Manual) 2.0 H Eosinophils # (Manual) Basophils # (Manual) PT INR Fibrinogen dRVVT Confirm Interp Factor V Activity POC ABG pH POC ABG pCO2 POC ABG pO2 121 H ABG pO2 ABG HCO3 ABG Base Excess ABG Hemoglobin Oxyhemoglobin Sodium 135 L Potassium Chloride 96.3 L Carbon Dioxide 21 L BUN 83 H Creatinine 3.0 H Glucose 135 H POC Glucose Lactic Acid Calcium Phosphorus Magnesium Direct Bilirubin AST ALT Alkaline Phosphatase Lactate Dehydrogenase Troponin T C-Reactive Protein Total Protein Albumin Prealbumin Triglycerides Cholesterol LDL Cholesterol Direct HDL Cholesterol PTH Intact Urine pH Urine WBC (Auto) Urine Creatinine Urine Total Protein Fluid Total Protein Vancomycin Trough Rheumatoid Factor Complement C4 Miscellaneous Test Crossmatch 09/09/16 09/09/16 09/09/16 05:41 11:55 14:13 WBC RBC Hgb Hct MCV MCH MCHC RDW Plt Count Lymph % (Auto) [place] % (Auto) Lymph # [place] # Baso # Seg Neutrophils % Seg Neuts % (Manual) Lymphocytes % (Manual) Monocytes % (Manual) Eosinophils % (Manual) Basophils % (Manual) Nucleated RBC % Seg Neutrophils # Seg Neutrophils # Man Lymphocytes # (Manual) Monocytes # (Manual) Eosinophils # (Manual) Basophils # (Manual) PT INR Fibrinogen dRVVT Confirm Interp Factor V Activity POC ABG pH POC ABG pCO2 POC ABG pO2 ABG pO2 ABG HCO3 ABG Base Excess ABG Hemoglobin Oxyhemoglobin Sodium Potassium Chloride Carbon Dioxide BUN Creatinine Glucose POC Glucose 155 H 186 H Lactic Acid Calcium Phosphorus Magnesium Direct Bilirubin AST ALT Alkaline Phosphatase Lactate Dehydrogenase Troponin T C-Reactive Protein Total Protein Albumin Prealbumin Triglycerides Cholesterol LDL Cholesterol Direct HDL Cholesterol PTH Intact Urine pH Urine WBC (Auto) 25.0 H Urine Creatinine Urine Total Protein Fluid Total Protein Vancomycin Trough Rheumatoid Factor Complement C4 Miscellaneous Test Crossmatch 09/09/16 09/09/16 09/10/16 17:33 23:13 05:09 WBC RBC Hgb Hct MCV MCH MCHC RDW Plt Count Lymph % (Auto) [place] % (Auto) Lymph # [place] # Baso # Seg Neutrophils % Seg Neuts % (Manual) Lymphocytes % (Manual) Monocytes % (Manual) Eosinophils % (Manual) Basophils % (Manual) Nucleated RBC % Seg Neutrophils # Seg Neutrophils # Man Lymphocytes # (Manual) Monocytes # (Manual) Eosinophils # (Manual) Basophils # (Manual) PT INR Fibrinogen dRVVT Confirm Interp Factor V Activity POC ABG pH POC ABG pCO2 POC ABG pO2 74 L ABG pO2 ABG HCO3 ABG Base Excess ABG Hemoglobin Oxyhemoglobin Sodium Potassium Chloride Carbon Dioxide BUN Creatinine Glucose POC Glucose 211 H 215 H Lactic Acid Calcium Phosphorus Magnesium Direct Bilirubin AST ALT Alkaline Phosphatase Lactate Dehydrogenase Troponin T C-Reactive Protein Total Protein Albumin Prealbumin Triglycerides Cholesterol LDL Cholesterol Direct HDL Cholesterol PTH Intact Urine pH Urine WBC (Auto) Urine Creatinine Urine Total Protein Fluid Total Protein Vancomycin Trough Rheumatoid Factor Complement C4 Miscellaneous Test Crossmatch 09/10/16 09/10/16 09/10/16 05:17 05:17 11:31 WBC 15.8 H RBC 3.25 L Hgb 7.3 L Hct 22.9 L MCV 71 L MCH 23 L MCHC RDW 18.4 H Plt Count Lymph % (Auto) [place] % (Auto) Lymph # [place] # Baso # Seg Neutrophils % Seg Neuts % (Manual) 91.0 H Lymphocytes % (Manual) 4.0 L Monocytes % (Manual) Eosinophils % (Manual) Basophils % (Manual) Nucleated RBC % Seg Neutrophils # Seg Neutrophils # Man 14.4 H Lymphocytes # (Manual) 0.6 L Monocytes # (Manual) Eosinophils # (Manual) Basophils # (Manual) PT INR Fibrinogen dRVVT Confirm Interp Factor V Activity POC ABG pH POC ABG pCO2 POC ABG pO2 ABG pO2 ABG HCO3 ABG Base Excess ABG Hemoglobin Oxyhemoglobin Sodium Potassium Chloride Carbon Dioxide 21 L BUN 93 H Creatinine 2.9 H Glucose 146 H POC Glucose 188 H Lactic Acid Calcium 8.1 L Phosphorus Magnesium Direct Bilirubin AST ALT Alkaline Phosphatase Lactate Dehydrogenase Troponin T C-Reactive Protein Total Protein Albumin Prealbumin Triglycerides Cholesterol LDL Cholesterol Direct HDL Cholesterol PTH Intact Urine pH Urine WBC (Auto) Urine Creatinine Urine Total Protein Fluid Total Protein Vancomycin Trough Rheumatoid Factor Complement C4 Miscellaneous Test Crossmatch 09/10/16 09/10/16 09/10/16 13:17 17:20 23:32 WBC RBC Hgb Hct MCV MCH MCHC RDW Plt Count Lymph % (Auto) [place] % (Auto) Lymph # [place] # Baso # Seg Neutrophils % Seg Neuts % (Manual) Lymphocytes % (Manual) Monocytes % (Manual) Eosinophils % (Manual) Basophils % (Manual) Nucleated RBC % Seg Neutrophils # Seg Neutrophils # Man Lymphocytes # (Manual) Monocytes # (Manual) Eosinophils # (Manual) Basophils # (Manual) PT INR Fibrinogen dRVVT Confirm Interp Factor V Activity POC ABG pH POC ABG pCO2 POC ABG pO2 ABG pO2 ABG HCO3 ABG Base Excess ABG Hemoglobin Oxyhemoglobin Sodium Potassium Chloride Carbon Dioxide BUN Creatinine Glucose POC Glucose 199 H 186 H Lactic Acid Calcium Phosphorus Magnesium Direct Bilirubin AST ALT Alkaline Phosphatase Lactate Dehydrogenase Troponin T C-Reactive Protein Total Protein Albumin Prealbumin Triglycerides Cholesterol LDL Cholesterol Direct HDL Cholesterol PTH Intact Urine pH Urine WBC (Auto) Urine Creatinine Urine Total Protein Fluid Total Protein Vancomycin Trough Rheumatoid Factor Complement C4 Miscellaneous Test Crossmatch See Detail 09/11/16 09/11/16 09/11/16 05:10 05:10 05:17 WBC 28.4 H RBC Hgb 9.2 L Hct 29.3 L D MCV 73 L MCH 23 L MCHC RDW 18.9 H Plt Count 452 H Lymph % (Auto) [place] % (Auto) Lymph # [place] # Baso # Seg Neutrophils % Seg Neuts % (Manual) 89.5 H Lymphocytes % (Manual) 2.0 L Monocytes % (Manual) Eosinophils % (Manual) Basophils % (Manual) Nucleated RBC % Seg Neutrophils # Seg Neutrophils # Man 25.4 H Lymphocytes # (Manual) 0.6 L Monocytes # (Manual) 1.3 H Eosinophils # (Manual) Basophils # (Manual) PT INR Fibrinogen dRVVT Confirm Interp Factor V Activity POC ABG pH POC ABG pCO2 POC ABG pO2 ABG pO2 ABG HCO3 ABG Base Excess ABG Hemoglobin Oxyhemoglobin Sodium 136 L Potassium Chloride Carbon Dioxide 18 L BUN 107 H Creatinine 2.6 H Glucose 187 H POC Glucose 230 H Lactic Acid Calcium 8.3 L Phosphorus Magnesium Direct Bilirubin AST ALT Alkaline Phosphatase Lactate Dehydrogenase Troponin T C-Reactive Protein Total Protein Albumin Prealbumin Triglycerides Cholesterol LDL Cholesterol Direct HDL Cholesterol PTH Intact Urine pH Urine WBC (Auto) Urine Creatinine Urine Total Protein Fluid Total Protein Vancomycin Trough Rheumatoid Factor Complement C4 Miscellaneous Test Crossmatch 09/11/16 09/11/16 09/11/16 05:55 12:02 17:32 WBC RBC Hgb Hct MCV MCH MCHC RDW Plt Count Lymph % (Auto) [place] % (Auto) Lymph # [place] # Baso # Seg Neutrophils % Seg Neuts % (Manual) Lymphocytes % (Manual) Monocytes % (Manual) Eosinophils % (Manual) Basophils % (Manual) Nucleated RBC % Seg Neutrophils # Seg Neutrophils # Man Lymphocytes # (Manual) Monocytes # (Manual) Eosinophils # (Manual) Basophils # (Manual) PT INR Fibrinogen dRVVT Confirm Interp Factor V Activity POC ABG pH POC ABG pCO2 33.8 L POC ABG pO2 ABG pO2 ABG HCO3 ABG Base Excess ABG Hemoglobin Oxyhemoglobin Sodium Potassium Chloride Carbon Dioxide BUN Creatinine Glucose POC Glucose 191 H 239 H Lactic Acid Calcium Phosphorus Magnesium Direct Bilirubin AST ALT Alkaline Phosphatase Lactate Dehydrogenase Troponin T C-Reactive Protein Total Protein Albumin Prealbumin Triglycerides Cholesterol LDL Cholesterol Direct HDL Cholesterol PTH Intact Urine pH Urine WBC (Auto) Urine Creatinine Urine Total Protein Fluid Total Protein Vancomycin Trough Rheumatoid Factor Complement C4 Miscellaneous Test Crossmatch 09/11/16 09/12/16 09/12/16 23:52 05:09 05:32 WBC RBC Hgb Hct MCV MCH MCHC RDW Plt Count Lymph % (Auto) [place] % (Auto) Lymph # [place] # Baso # Seg Neutrophils % Seg Neuts % (Manual) Lymphocytes % (Manual) Monocytes % (Manual) Eosinophils % (Manual) Basophils % (Manual) Nucleated RBC % Seg Neutrophils # Seg Neutrophils # Man Lymphocytes # (Manual) Monocytes # (Manual) Eosinophils # (Manual) Basophils # (Manual) PT INR Fibrinogen dRVVT Confirm Interp Factor V Activity POC ABG pH POC ABG pCO2 34.6 L POC ABG pO2 ABG pO2 ABG HCO3 ABG Base Excess ABG Hemoglobin Oxyhemoglobin Sodium Potassium Chloride Carbon Dioxide BUN Creatinine Glucose POC Glucose 265 H 184 H Lactic Acid Calcium Phosphorus Magnesium Direct Bilirubin AST ALT Alkaline Phosphatase Lactate Dehydrogenase Troponin T C-Reactive Protein Total Protein Albumin Prealbumin Triglycerides Cholesterol LDL Cholesterol Direct HDL Cholesterol PTH Intact Urine pH Urine WBC (Auto) Urine Creatinine Urine Total Protein Fluid Total Protein Vancomycin Trough Rheumatoid Factor Complement C4 Miscellaneous Test Crossmatch 09/12/16 09/12/16 09/12/16 06:45 06:45 07:22 WBC 31.7 H RBC 3.54 L Hgb 8.3 L Hct 25.9 L MCV 73 L MCH 23 L MCHC RDW 18.9 H Plt Count Lymph % (Auto) [place] % (Auto) Lymph # [place] # Baso # Seg Neutrophils % Seg Neuts % (Manual) 88.5 H Lymphocytes % (Manual) 4.5 L Monocytes % (Manual) Eosinophils % (Manual) Basophils % (Manual) Nucleated RBC % Seg Neutrophils # Seg Neutrophils # Man 28.1 H Lymphocytes # (Manual) Monocytes # (Manual) 1.0 H Eosinophils # (Manual) Basophils # (Manual) PT INR Fibrinogen dRVVT Confirm Interp Factor V Activity POC ABG pH POC ABG pCO2 POC ABG pO2 ABG pO2 ABG HCO3 ABG Base Excess ABG Hemoglobin Oxyhemoglobin Sodium Potassium Chloride Carbon Dioxide 20 L BUN 115 H Creatinine 2.7 H Glucose 165 H POC Glucose Lactic Acid Calcium 8.0 L Phosphorus Magnesium Direct Bilirubin AST ALT Alkaline Phosphatase Lactate Dehydrogenase Troponin T C-Reactive Protein Total Protein Albumin Prealbumin Triglycerides 217 H Cholesterol LDL Cholesterol Direct HDL Cholesterol PTH Intact Urine pH Urine WBC (Auto) Urine Creatinine Urine Total Protein Fluid Total Protein Vancomycin Trough Rheumatoid Factor Complement C4 Miscellaneous Test Crossmatch 09/12/16 09/12/16 09/12/16 07:22 09:59 12:21 WBC RBC Hgb Hct MCV MCH MCHC RDW Plt Count Lymph % (Auto) [place] % (Auto) Lymph # [place] # Baso # Seg Neutrophils % Seg Neuts % (Manual) Lymphocytes % (Manual) Monocytes % (Manual) Eosinophils % (Manual) Basophils % (Manual) Nucleated RBC % Seg Neutrophils # Seg Neutrophils # Man Lymphocytes # (Manual) Monocytes # (Manual) Eosinophils # (Manual) Basophils # (Manual) PT INR Fibrinogen dRVVT Confirm Interp Positive H Factor V Activity POC ABG pH POC ABG pCO2 POC ABG pO2 ABG pO2 ABG HCO3 ABG Base Excess ABG Hemoglobin Oxyhemoglobin Sodium Potassium Chloride Carbon Dioxide BUN Creatinine Glucose POC Glucose 224 H Lactic Acid Calcium Phosphorus Magnesium Direct Bilirubin AST ALT Alkaline Phosphatase Lactate Dehydrogenase Troponin T C-Reactive Protein 1.70 H Total Protein Albumin Prealbumin Triglycerides Cholesterol LDL Cholesterol Direct HDL Cholesterol PTH Intact Urine pH Urine WBC (Auto) Urine Creatinine Urine Total Protein Fluid Total Protein Vancomycin Trough Rheumatoid Factor Complement C4 Miscellaneous Test Crossmatch 09/12/16 09/12/16 09/13/16 16:51 23:28 04:00 WBC 45.0 H* RBC Hgb 9.4 L Hct MCV 75 L MCH 23 L MCHC RDW 19.0 H Plt Count 470 H Lymph % (Auto) [place] % (Auto) Lymph # [place] # Baso # Seg Neutrophils % Seg Neuts % (Manual) 89.0 H Lymphocytes % (Manual) 5.0 L Monocytes % (Manual) Eosinophils % (Manual) Basophils % (Manual) Nucleated RBC % Seg Neutrophils # Seg Neutrophils # Man 40.1 H Lymphocytes # (Manual) Monocytes # (Manual) Eosinophils # (Manual) Basophils # (Manual) PT INR Fibrinogen dRVVT Confirm Interp Factor V Activity POC ABG pH POC ABG pCO2 POC ABG pO2 ABG pO2 ABG HCO3 ABG Base Excess ABG Hemoglobin Oxyhemoglobin Sodium Potassium Chloride Carbon Dioxide BUN Creatinine Glucose POC Glucose 169 H 150 H Lactic Acid Calcium Phosphorus Magnesium Direct Bilirubin AST ALT Alkaline Phosphatase Lactate Dehydrogenase Troponin T C-Reactive Protein Total Protein Albumin Prealbumin Triglycerides Cholesterol LDL Cholesterol Direct HDL Cholesterol PTH Intact Urine pH Urine WBC (Auto) Urine Creatinine Urine Total Protein Fluid Total Protein Vancomycin Trough Rheumatoid Factor Complement C4 Miscellaneous Test Crossmatch 09/13/16 09/13/16 09/13/16 04:00 11:26 17:31 WBC RBC Hgb Hct MCV MCH MCHC RDW Plt Count Lymph % (Auto) [place] % (Auto) Lymph # [place] # Baso # Seg Neutrophils % Seg Neuts % (Manual) Lymphocytes % (Manual) Monocytes % (Manual) Eosinophils % (Manual) Basophils % (Manual) Nucleated RBC % Seg Neutrophils # Seg Neutrophils # Man Lymphocytes # (Manual) Monocytes # (Manual) Eosinophils # (Manual) Basophils # (Manual) PT INR Fibrinogen dRVVT Confirm Interp Factor V Activity POC ABG pH POC ABG pCO2 POC ABG pO2 ABG pO2 ABG HCO3 ABG Base Excess ABG Hemoglobin Oxyhemoglobin Sodium Potassium Chloride Carbon Dioxide 20 L BUN 116 H Creatinine 3.0 H Glucose 172 H POC Glucose 140 H 183 H Lactic Acid Calcium Phosphorus Magnesium Direct Bilirubin AST ALT Alkaline Phosphatase Lactate Dehydrogenase Troponin T C-Reactive Protein Total Protein 6.2 L Albumin 2.9 L Prealbumin Triglycerides Cholesterol LDL Cholesterol Direct HDL Cholesterol PTH Intact Urine pH Urine WBC (Auto) Urine Creatinine Urine Total Protein Fluid Total Protein Vancomycin Trough Rheumatoid Factor Complement C4 Miscellaneous Test Crossmatch 09/13/16 09/14/16 09/14/16 23:23 04:06 04:07 WBC 29.4 H RBC Hgb 8.9 L Hct 27.3 L MCV 75 L MCH 24 L MCHC RDW 19.1 H Plt Count Lymph % (Auto) [place] % (Auto) Lymph # [place] # Baso # Seg Neutrophils % Seg Neuts % (Manual) 84.0 H Lymphocytes % (Manual) 6.0 L Monocytes % (Manual) 9.0 H Eosinophils % (Manual) Basophils % (Manual) Nucleated RBC % Seg Neutrophils # Seg Neutrophils # Man 24.7 H Lymphocytes # (Manual) Monocytes # (Manual) 2.6 H Eosinophils # (Manual) Basophils # (Manual) PT INR Fibrinogen dRVVT Confirm Interp Factor V Activity POC ABG pH 7.342 L POC ABG pCO2 POC ABG pO2 116 H ABG pO2 ABG HCO3 ABG Base Excess ABG Hemoglobin Oxyhemoglobin Sodium Potassium Chloride Carbon Dioxide BUN Creatinine Glucose POC Glucose 154 H Lactic Acid Calcium Phosphorus Magnesium Direct Bilirubin AST ALT Alkaline Phosphatase Lactate Dehydrogenase Troponin T C-Reactive Protein Total Protein Albumin Prealbumin Triglycerides Cholesterol LDL Cholesterol Direct HDL Cholesterol PTH Intact Urine pH Urine WBC (Auto) Urine Creatinine Urine Total Protein Fluid Total Protein Vancomycin Trough Rheumatoid Factor Complement C4 Miscellaneous Test Crossmatch 09/14/16 09/14/16 09/14/16 04:07 05:29 12:19 WBC RBC Hgb Hct MCV MCH MCHC RDW Plt Count Lymph % (Auto) [place] % (Auto) Lymph # [place] # Baso # Seg Neutrophils % Seg Neuts % (Manual) Lymphocytes % (Manual) Monocytes % (Manual) Eosinophils % (Manual) Basophils % (Manual) Nucleated RBC % Seg Neutrophils # Seg Neutrophils # Man Lymphocytes # (Manual) Monocytes # (Manual) Eosinophils # (Manual) Basophils # (Manual) PT INR Fibrinogen dRVVT Confirm Interp Factor V Activity POC ABG pH POC ABG pCO2 POC ABG pO2 ABG pO2 ABG HCO3 ABG Base Excess ABG Hemoglobin Oxyhemoglobin Sodium 136 L Potassium Chloride Carbon Dioxide 18 L BUN 121 H Creatinine 2.8 H Glucose 214 H POC Glucose 239 H 181 H Lactic Acid Calcium Phosphorus Magnesium Direct Bilirubin AST ALT Alkaline Phosphatase Lactate Dehydrogenase Troponin T C-Reactive Protein Total Protein Albumin Prealbumin Triglycerides Cholesterol LDL Cholesterol Direct HDL Cholesterol PTH Intact Urine pH Urine WBC (Auto) Urine Creatinine Urine Total Protein Fluid Total Protein Vancomycin Trough Rheumatoid Factor Complement C4 Miscellaneous Test Crossmatch 09/14/16 09/14/16 09/15/16 18:12 23:37 05:00 WBC 26.1 H RBC 3.05 L Hgb 7.2 L Hct 22.9 L MCV 75 L MCH 24 L MCHC RDW 19.0 H Plt Count Lymph % (Auto) [place] % (Auto) Lymph # [place] # Baso # Seg Neutrophils % Seg Neuts % (Manual) Lymphocytes % (Manual) Monocytes % (Manual) Eosinophils % (Manual) Basophils % (Manual) Nucleated RBC % Seg Neutrophils # Seg Neutrophils # Man Lymphocytes # (Manual) Monocytes # (Manual) Eosinophils # (Manual) Basophils # (Manual) PT INR Fibrinogen dRVVT Confirm Interp Factor V Activity POC ABG pH POC ABG pCO2 POC ABG pO2 ABG pO2 ABG HCO3 ABG Base Excess ABG Hemoglobin Oxyhemoglobin Sodium Potassium Chloride Carbon Dioxide BUN Creatinine Glucose POC Glucose 266 H 154 H Lactic Acid Calcium Phosphorus Magnesium Direct Bilirubin AST ALT Alkaline Phosphatase Lactate Dehydrogenase Troponin T C-Reactive Protein Total Protein Albumin Prealbumin Triglycerides Cholesterol LDL Cholesterol Direct HDL Cholesterol PTH Intact Urine pH Urine WBC (Auto) Urine Creatinine Urine Total Protein Fluid Total Protein Vancomycin Trough Rheumatoid Factor Complement C4 Miscellaneous Test Crossmatch 09/15/16 09/15/16 09/15/16 05:00 05:17 12:45 WBC RBC Hgb Hct MCV MCH MCHC RDW Plt Count Lymph % (Auto) [place] % (Auto) Lymph # [place] # Baso # Seg Neutrophils % Seg Neuts % (Manual) Lymphocytes % (Manual) Monocytes % (Manual) Eosinophils % (Manual) Basophils % (Manual) Nucleated RBC % Seg Neutrophils # Seg Neutrophils # Man Lymphocytes # (Manual) Monocytes # (Manual) Eosinophils # (Manual) Basophils # (Manual) PT INR Fibrinogen dRVVT Confirm Interp Factor V Activity POC ABG pH POC ABG pCO2 POC ABG pO2 ABG pO2 ABG HCO3 ABG Base Excess ABG Hemoglobin Oxyhemoglobin Sodium Potassium 5.2 H Chloride Carbon Dioxide 18 L BUN 139 H Creatinine 3.7 H Glucose 227 H POC Glucose 226 H 244 H Lactic Acid Calcium 8.3 L Phosphorus Magnesium Direct Bilirubin AST ALT Alkaline Phosphatase Lactate Dehydrogenase Troponin T C-Reactive Protein Total Protein Albumin Prealbumin Triglycerides Cholesterol LDL Cholesterol Direct HDL Cholesterol PTH Intact Urine pH Urine WBC (Auto) Urine Creatinine Urine Total Protein Fluid Total Protein Vancomycin Trough Rheumatoid Factor Complement C4 Miscellaneous Test Crossmatch 09/15/16 09/15/16 09/15/16 14:32 17:33 23:35 WBC RBC Hgb Hct MCV MCH MCHC RDW Plt Count Lymph % (Auto) [place] % (Auto) Lymph # [place] # Baso # Seg Neutrophils % Seg Neuts % (Manual) Lymphocytes % (Manual) Monocytes % (Manual) Eosinophils % (Manual) Basophils % (Manual) Nucleated RBC % Seg Neutrophils # Seg Neutrophils # Man Lymphocytes # (Manual) Monocytes # (Manual) Eosinophils # (Manual) Basophils # (Manual) PT INR Fibrinogen dRVVT Confirm Interp Factor V Activity POC ABG pH POC ABG pCO2 27.7 L POC ABG pO2 120 H ABG pO2 ABG HCO3 ABG Base Excess ABG Hemoglobin Oxyhemoglobin Sodium Potassium Chloride Carbon Dioxide BUN Creatinine Glucose POC Glucose 232 H 167 H Lactic Acid Calcium Phosphorus Magnesium Direct Bilirubin AST ALT Alkaline Phosphatase Lactate Dehydrogenase Troponin T C-Reactive Protein Total Protein Albumin Prealbumin Triglycerides Cholesterol LDL Cholesterol Direct HDL Cholesterol PTH Intact Urine pH Urine WBC (Auto) Urine Creatinine Urine Total Protein Fluid Total Protein Vancomycin Trough Rheumatoid Factor Complement C4 Miscellaneous Test Crossmatch 09/16/16 09/16/16 09/16/16 03:58 10:27 10:27 WBC 19.0 H RBC 2.77 L Hgb 6.5 L Hct 20.9 L MCV 76 L MCH 23 L MCHC RDW 19.3 H Plt Count Lymph % (Auto) 11.0 L [place] % (Auto) Lymph # [place] # 1.1 H Baso # Seg Neutrophils % 82.5 H Seg Neuts % (Manual) Lymphocytes % (Manual) Monocytes % (Manual) Eosinophils % (Manual) Basophils % (Manual) Nucleated RBC % Seg Neutrophils # 15.7 H Seg Neutrophils # Man Lymphocytes # (Manual) Monocytes # (Manual) Eosinophils # (Manual) Basophils # (Manual) PT INR Fibrinogen dRVVT Confirm Interp Factor V Activity POC ABG pH POC ABG pCO2 POC ABG pO2 ABG pO2 ABG HCO3 ABG Base Excess ABG Hemoglobin Oxyhemoglobin Sodium Potassium Chloride 109.3 H Carbon Dioxide 18 L BUN 139 H Creatinine 4.1 H Glucose 144 H POC Glucose 146 H Lactic Acid Calcium 8.1 L Phosphorus Magnesium Direct Bilirubin AST ALT Alkaline Phosphatase Lactate Dehydrogenase Troponin T C-Reactive Protein Total Protein Albumin Prealbumin Triglycerides Cholesterol LDL Cholesterol Direct HDL Cholesterol PTH Intact Urine pH Urine WBC (Auto) Urine Creatinine Urine Total Protein Fluid Total Protein Vancomycin Trough Rheumatoid Factor Complement C4 Miscellaneous Test Crossmatch 09/16/16 09/16/16 09/16/16 12:04 12:10 13:55 WBC RBC Hgb Hct MCV MCH MCHC RDW Plt Count Lymph % (Auto) [place] % (Auto) Lymph # [place] # Baso # Seg Neutrophils % Seg Neuts % (Manual) Lymphocytes % (Manual) Monocytes % (Manual) Eosinophils % (Manual) Basophils % (Manual) Nucleated RBC % Seg Neutrophils # Seg Neutrophils # Man Lymphocytes # (Manual) Monocytes # (Manual) Eosinophils # (Manual) Basophils # (Manual) PT INR Fibrinogen dRVVT Confirm Interp Factor V Activity POC ABG pH POC ABG pCO2 32.9 L POC ABG pO2 ABG pO2 ABG HCO3 ABG Base Excess ABG Hemoglobin Oxyhemoglobin Sodium Potassium Chloride Carbon Dioxide BUN Creatinine Glucose POC Glucose 185 H Lactic Acid Calcium Phosphorus Magnesium Direct Bilirubin AST ALT Alkaline Phosphatase Lactate Dehydrogenase Troponin T C-Reactive Protein Total Protein Albumin Prealbumin Triglycerides Cholesterol LDL Cholesterol Direct HDL Cholesterol PTH Intact Urine pH Urine WBC (Auto) Urine Creatinine Urine Total Protein Fluid Total Protein Vancomycin Trough Rheumatoid Factor Complement C4 Miscellaneous Test Crossmatch See Detail 09/16/16 09/16/16 09/16/16 17:55 19:19 23:48 WBC RBC Hgb Hct MCV MCH MCHC RDW Plt Count Lymph % (Auto) [place] % (Auto) Lymph # [place] # Baso # Seg Neutrophils % Seg Neuts % (Manual) Lymphocytes % (Manual) Monocytes % (Manual) Eosinophils % (Manual) Basophils % (Manual) Nucleated RBC % Seg Neutrophils # Seg Neutrophils # Man Lymphocytes # (Manual) Monocytes # (Manual) Eosinophils # (Manual) Basophils # (Manual) PT INR Fibrinogen dRVVT Confirm Interp Factor V Activity POC ABG pH POC ABG pCO2 POC ABG pO2 ABG pO2 ABG HCO3 ABG Base Excess ABG Hemoglobin Oxyhemoglobin Sodium Potassium Chloride Carbon Dioxide BUN Creatinine Glucose POC Glucose 222 H 107 H Lactic Acid Calcium Phosphorus Magnesium Direct Bilirubin AST ALT Alkaline Phosphatase Lactate Dehydrogenase Troponin T C-Reactive Protein Total Protein Albumin Prealbumin Triglycerides Cholesterol LDL Cholesterol Direct HDL Cholesterol PTH Intact Urine pH Urine WBC (Auto) Urine Creatinine 47.4 H Urine Total Protein 16 H Fluid Total Protein Vancomycin Trough Rheumatoid Factor Complement C4 Miscellaneous Test Crossmatch 09/17/16 09/17/16 09/17/16 03:45 03:45 04:55 WBC 19.6 H RBC 3.41 L Hgb 8.5 L Hct 26.7 L MCV 78 L MCH 25 L MCHC RDW 19.9 H Plt Count Lymph % (Auto) 9.3 L [place] % (Auto) Lymph # [place] # 1.2 H Baso # Seg Neutrophils % 83.9 H Seg Neuts % (Manual) Lymphocytes % (Manual) Monocytes % (Manual) Eosinophils % (Manual) Basophils % (Manual) Nucleated RBC % Seg Neutrophils # 16.4 H Seg Neutrophils # Man Lymphocytes # (Manual) Monocytes # (Manual) Eosinophils # (Manual) Basophils # (Manual) PT INR Fibrinogen dRVVT Confirm Interp Factor V Activity POC ABG pH POC ABG pCO2 POC ABG pO2 ABG pO2 ABG HCO3 ABG Base Excess ABG Hemoglobin Oxyhemoglobin Sodium 146 H Potassium 5.1 H Chloride 110.9 H Carbon Dioxide 16 L BUN 146 H Creatinine 4.0 H Glucose 108 H POC Glucose 133 H Lactic Acid Calcium Phosphorus Magnesium 3.00 H Direct Bilirubin AST ALT Alkaline Phosphatase Lactate Dehydrogenase Troponin T C-Reactive Protein Total Protein Albumin Prealbumin Triglycerides Cholesterol LDL Cholesterol Direct HDL Cholesterol PTH Intact Urine pH Urine WBC (Auto) Urine Creatinine Urine Total Protein Fluid Total Protein Vancomycin Trough Rheumatoid Factor Complement C4 Miscellaneous Test Crossmatch 09/17/16 09/17/16 09/17/16 11:15 17:33 23:47 WBC RBC Hgb Hct MCV MCH MCHC RDW Plt Count Lymph % (Auto) [place] % (Auto) Lymph # [place] # Baso # Seg Neutrophils % Seg Neuts % (Manual) Lymphocytes % (Manual) Monocytes % (Manual) Eosinophils % (Manual) Basophils % (Manual) Nucleated RBC % Seg Neutrophils # Seg Neutrophils # Man Lymphocytes # (Manual) Monocytes # (Manual) Eosinophils # (Manual) Basophils # (Manual) PT INR Fibrinogen dRVVT Confirm Interp Factor V Activity POC ABG pH POC ABG pCO2 POC ABG pO2 ABG pO2 ABG HCO3 ABG Base Excess ABG Hemoglobin Oxyhemoglobin Sodium Potassium Chloride Carbon Dioxide BUN Creatinine Glucose POC Glucose 176 H 246 H 148 H Lactic Acid Calcium Phosphorus Magnesium Direct Bilirubin AST ALT Alkaline Phosphatase Lactate Dehydrogenase Troponin T C-Reactive Protein Total Protein Albumin Prealbumin Triglycerides Cholesterol LDL Cholesterol Direct HDL Cholesterol PTH Intact Urine pH Urine WBC (Auto) Urine Creatinine Urine Total Protein Fluid Total Protein Vancomycin Trough Rheumatoid Factor Complement C4 Miscellaneous Test Crossmatch 09/18/16 09/18/16 09/18/16 05:33 08:31 08:31 WBC 18.0 H RBC 3.17 L Hgb 9.0 L Hct 25.7 L MCV MCH MCHC 35 H RDW 20.4 H Plt Count Lymph % (Auto) [place] % (Auto) Lymph # [place] # Baso # Seg Neutrophils % Seg Neuts % (Manual) Lymphocytes % (Manual) Monocytes % (Manual) Eosinophils % (Manual) Basophils % (Manual) Nucleated RBC % Seg Neutrophils # Seg Neutrophils # Man Lymphocytes # (Manual) Monocytes # (Manual) Eosinophils # (Manual) Basophils # (Manual) PT INR Fibrinogen dRVVT Confirm Interp Factor V Activity POC ABG pH POC ABG pCO2 POC ABG pO2 ABG pO2 ABG HCO3 ABG Base Excess ABG Hemoglobin Oxyhemoglobin Sodium Potassium Chloride Carbon Dioxide 15 L BUN 124 H Creatinine 3.8 H Glucose POC Glucose 120 H Lactic Acid Calcium 8.1 L Phosphorus Magnesium Direct Bilirubin AST ALT Alkaline Phosphatase Lactate Dehydrogenase Troponin T C-Reactive Protein Total Protein Albumin Prealbumin Triglycerides Cholesterol LDL Cholesterol Direct HDL Cholesterol PTH Intact Urine pH Urine WBC (Auto) Urine Creatinine Urine Total Protein Fluid Total Protein Vancomycin Trough Rheumatoid Factor Complement C4 Miscellaneous Test Crossmatch 09/18/16 09/18/16 09/18/16 12:03 15:34 17:50 WBC RBC Hgb Hct MCV MCH MCHC RDW Plt Count Lymph % (Auto) [place] % (Auto) Lymph # [place] # Baso # Seg Neutrophils % Seg Neuts % (Manual) Lymphocytes % (Manual) Monocytes % (Manual) Eosinophils % (Manual) Basophils % (Manual) Nucleated RBC % Seg Neutrophils # Seg Neutrophils # Man Lymphocytes # (Manual) Monocytes # (Manual) Eosinophils # (Manual) Basophils # (Manual) PT INR Fibrinogen dRVVT Confirm Interp Factor V Activity POC ABG pH POC ABG pCO2 25.7 L POC ABG pO2 66 L ABG pO2 ABG HCO3 ABG Base Excess ABG Hemoglobin Oxyhemoglobin Sodium Potassium Chloride Carbon Dioxide BUN Creatinine Glucose POC Glucose 156 H 220 H Lactic Acid Calcium Phosphorus Magnesium Direct Bilirubin AST ALT Alkaline Phosphatase Lactate Dehydrogenase Troponin T C-Reactive Protein Total Protein Albumin Prealbumin Triglycerides Cholesterol LDL Cholesterol Direct HDL Cholesterol PTH Intact Urine pH Urine WBC (Auto) Urine Creatinine Urine Total Protein Fluid Total Protein Vancomycin Trough Rheumatoid Factor Complement C4 Miscellaneous Test Crossmatch 09/19/16 09/19/16 09/19/16 06:21 09:50 09:50 WBC 17.1 H RBC 3.49 L Hgb 9.0 L Hct 28.1 L MCV MCH 26 L MCHC RDW 20.8 H Plt Count Lymph % (Auto) 11.5 L [place] % (Auto) 7.5 H Lymph # [place] # 1.3 H Baso # Seg Neutrophils % 79.8 H Seg Neuts % (Manual) Lymphocytes % (Manual) Monocytes % (Manual) Eosinophils % (Manual) Basophils % (Manual) Nucleated RBC % Seg Neutrophils # 13.7 H Seg Neutrophils # Man Lymphocytes # (Manual) Monocytes # (Manual) Eosinophils # (Manual) Basophils # (Manual) PT INR Fibrinogen dRVVT Confirm Interp Factor V Activity POC ABG pH POC ABG pCO2 POC ABG pO2 ABG pO2 ABG HCO3 ABG Base Excess ABG Hemoglobin Oxyhemoglobin Sodium Potassium Chloride 108.6 H Carbon Dioxide 15 L BUN 125 H Creatinine 4.1 H Glucose 124 H POC Glucose 119 H Lactic Acid Calcium Phosphorus Magnesium Direct Bilirubin AST ALT Alkaline Phosphatase Lactate Dehydrogenase Troponin T C-Reactive Protein Total Protein Albumin Prealbumin Triglycerides Cholesterol LDL Cholesterol Direct HDL Cholesterol PTH Intact Urine pH Urine WBC (Auto) Urine Creatinine Urine Total Protein Fluid Total Protein Vancomycin Trough Rheumatoid Factor Complement C4 Miscellaneous Test Crossmatch 09/19/16 09/19/16 09/19/16 11:25 17:53 23:36 WBC RBC Hgb Hct MCV MCH MCHC RDW Plt Count Lymph % (Auto) [place] % (Auto) Lymph # [place] # Baso # Seg Neutrophils % Seg Neuts % (Manual) Lymphocytes % (Manual) Monocytes % (Manual) Eosinophils % (Manual) Basophils % (Manual) Nucleated RBC % Seg Neutrophils # Seg Neutrophils # Man Lymphocytes # (Manual) Monocytes # (Manual) Eosinophils # (Manual) Basophils # (Manual) PT INR Fibrinogen dRVVT Confirm Interp Factor V Activity POC ABG pH POC ABG pCO2 POC ABG pO2 ABG pO2 ABG HCO3 ABG Base Excess ABG Hemoglobin Oxyhemoglobin Sodium Potassium Chloride Carbon Dioxide BUN Creatinine Glucose POC Glucose 160 H 245 H 121 H Lactic Acid Calcium Phosphorus Magnesium Direct Bilirubin AST ALT Alkaline Phosphatase Lactate Dehydrogenase Troponin T C-Reactive Protein Total Protein Albumin Prealbumin Triglycerides Cholesterol LDL Cholesterol Direct HDL Cholesterol PTH Intact Urine pH Urine WBC (Auto) Urine Creatinine Urine Total Protein Fluid Total Protein Vancomycin Trough Rheumatoid Factor Complement C4 Miscellaneous Test Crossmatch 09/20/16 09/20/16 09/20/16 04:10 04:10 04:10 WBC 17.0 H RBC 3.21 L Hgb 8.2 L Hct 25.5 L MCV MCH 26 L MCHC RDW 20.9 H Plt Count Lymph % (Auto) [place] % (Auto) Lymph # [place] # Baso # Seg Neutrophils % Seg Neuts % (Manual) Lymphocytes % (Manual) Monocytes % (Manual) Eosinophils % (Manual) Basophils % (Manual) Nucleated RBC % Seg Neutrophils # Seg Neutrophils # Man Lymphocytes # (Manual) Monocytes # (Manual) Eosinophils # (Manual) Basophils # (Manual) PT INR Fibrinogen dRVVT Confirm Interp Factor V Activity POC ABG pH POC ABG pCO2 POC ABG pO2 ABG pO2 ABG HCO3 ABG Base Excess ABG Hemoglobin Oxyhemoglobin Sodium Potassium Chloride 111.0 H Carbon Dioxide 16 L BUN 129 H Creatinine 3.7 H Glucose 115 H POC Glucose Lactic Acid Calcium 8.2 L Phosphorus Magnesium Direct Bilirubin AST ALT Alkaline Phosphatase Lactate Dehydrogenase Troponin T C-Reactive Protein Total Protein Albumin Prealbumin Triglycerides 243 H Cholesterol LDL Cholesterol Direct HDL Cholesterol PTH Intact Urine pH Urine WBC (Auto) Urine Creatinine Urine Total Protein Fluid Total Protein Vancomycin Trough Rheumatoid Factor Complement C4 Miscellaneous Test Crossmatch 09/20/16 09/20/16 09/20/16 05:40 11:52 16:50 WBC RBC Hgb Hct MCV MCH MCHC RDW Plt Count Lymph % (Auto) [place] % (Auto) Lymph # [place] # Baso # Seg Neutrophils % Seg Neuts % (Manual) Lymphocytes % (Manual) Monocytes % (Manual) Eosinophils % (Manual) Basophils % (Manual) Nucleated RBC % Seg Neutrophils # Seg Neutrophils # Man Lymphocytes # (Manual) Monocytes # (Manual) Eosinophils # (Manual) Basophils # (Manual) PT INR Fibrinogen dRVVT Confirm Interp Factor V Activity POC ABG pH POC ABG pCO2 POC ABG pO2 ABG pO2 ABG HCO3 ABG Base Excess ABG Hemoglobin Oxyhemoglobin Sodium Potassium Chloride Carbon Dioxide BUN Creatinine Glucose POC Glucose 131 H 183 H 236 H Lactic Acid Calcium Phosphorus Magnesium Direct Bilirubin AST ALT Alkaline Phosphatase Lactate Dehydrogenase Troponin T C-Reactive Protein Total Protein Albumin Prealbumin Triglycerides Cholesterol LDL Cholesterol Direct HDL Cholesterol PTH Intact Urine pH Urine WBC (Auto) Urine Creatinine Urine Total Protein Fluid Total Protein Vancomycin Trough Rheumatoid Factor Complement C4 Miscellaneous Test Crossmatch 09/20/16 09/21/16 09/21/16 23:51 03:30 04:44 WBC RBC Hgb Hct MCV MCH MCHC RDW Plt Count Lymph % (Auto) [place] % (Auto) Lymph # [place] # Baso # Seg Neutrophils % Seg Neuts % (Manual) Lymphocytes % (Manual) Monocytes % (Manual) Eosinophils % (Manual) Basophils % (Manual) Nucleated RBC % Seg Neutrophils # Seg Neutrophils # Man Lymphocytes # (Manual) Monocytes # (Manual) Eosinophils # (Manual) Basophils # (Manual) PT INR Fibrinogen dRVVT Confirm Interp Factor V Activity POC ABG pH POC ABG pCO2 POC ABG pO2 ABG pO2 ABG HCO3 ABG Base Excess ABG Hemoglobin Oxyhemoglobin Sodium Potassium Chloride Carbon Dioxide BUN Creatinine Glucose POC Glucose 114 H 141 H Lactic Acid Calcium Phosphorus Magnesium 2.70 H Direct Bilirubin AST ALT Alkaline Phosphatase Lactate Dehydrogenase Troponin T C-Reactive Protein Total Protein Albumin Prealbumin Triglycerides Cholesterol LDL Cholesterol Direct HDL Cholesterol PTH Intact Urine pH Urine WBC (Auto) Urine Creatinine Urine Total Protein Fluid Total Protein Vancomycin Trough Rheumatoid Factor Complement C4 Miscellaneous Test Crossmatch 09/21/16 09/21/16 09/21/16 07:45 07:45 10:01 WBC 13.8 H RBC 2.94 L Hgb 7.5 L Hct 23.5 L MCV MCH 26 L MCHC RDW 21.2 H Plt Count Lymph % (Auto) 6.9 L [place] % (Auto) 9.4 H Lymph # 0.9 L [place] # 1.3 H Baso # Seg Neutrophils % 83.2 H Seg Neuts % (Manual) Lymphocytes % (Manual) Monocytes % (Manual) Eosinophils % (Manual) Basophils % (Manual) Nucleated RBC % Seg Neutrophils # 11.5 H Seg Neutrophils # Man Lymphocytes # (Manual) Monocytes # (Manual) Eosinophils # (Manual) Basophils # (Manual) PT INR Fibrinogen dRVVT Confirm Interp Factor V Activity POC ABG pH 7.308 L POC ABG pCO2 31.9 L POC ABG pO2 148 H ABG pO2 ABG HCO3 ABG Base Excess ABG Hemoglobin Oxyhemoglobin Sodium 147 H Potassium Chloride 114.2 H Carbon Dioxide 15 L BUN 120 H Creatinine 3.9 H Glucose 156 H POC Glucose Lactic Acid Calcium 8.2 L Phosphorus Magnesium Direct Bilirubin AST ALT Alkaline Phosphatase Lactate Dehydrogenase Troponin T C-Reactive Protein Total Protein Albumin Prealbumin Triglycerides Cholesterol LDL Cholesterol Direct HDL Cholesterol PTH Intact Urine pH Urine WBC (Auto) Urine Creatinine Urine Total Protein Fluid Total Protein Vancomycin Trough Rheumatoid Factor Complement C4 Miscellaneous Test Crossmatch 09/21/16 09/21/16 09/21/16 12:00 12:03 13:00 WBC RBC Hgb Hct MCV MCH MCHC RDW Plt Count Lymph % (Auto) [place] % (Auto) Lymph # [place] # Baso # Seg Neutrophils % Seg Neuts % (Manual) Lymphocytes % (Manual) Monocytes % (Manual) Eosinophils % (Manual) Basophils % (Manual) Nucleated RBC % Seg Neutrophils # Seg Neutrophils # Man Lymphocytes # (Manual) Monocytes # (Manual) Eosinophils # (Manual) Basophils # (Manual) PT INR Fibrinogen dRVVT Confirm Interp Factor V Activity POC ABG pH POC ABG pCO2 POC ABG pO2 ABG pO2 ABG HCO3 ABG Base Excess ABG Hemoglobin Oxyhemoglobin Sodium Potassium Chloride Carbon Dioxide BUN Creatinine Glucose POC Glucose 163 H Lactic Acid Calcium Phosphorus Magnesium Direct Bilirubin AST ALT Alkaline Phosphatase Lactate Dehydrogenase Troponin T C-Reactive Protein Total Protein Albumin Prealbumin Triglycerides Cholesterol LDL Cholesterol Direct HDL Cholesterol PTH Intact Urine pH Urine WBC (Auto) Urine Creatinine 54.8 H Urine Total Protein Fluid Total Protein Vancomycin Trough 2.3 L Rheumatoid Factor Complement C4 Miscellaneous Test Crossmatch 09/21/16 09/21/16 09/22/16 16:51 23:17 06:27 WBC RBC Hgb Hct MCV MCH MCHC RDW Plt Count Lymph % (Auto) [place] % (Auto) Lymph # [place] # Baso # Seg Neutrophils % Seg Neuts % (Manual) Lymphocytes % (Manual) Monocytes % (Manual) Eosinophils % (Manual) Basophils % (Manual) Nucleated RBC % Seg Neutrophils # Seg Neutrophils # Man Lymphocytes # (Manual) Monocytes # (Manual) Eosinophils # (Manual) Basophils # (Manual) PT INR Fibrinogen dRVVT Confirm Interp Factor V Activity POC ABG pH POC ABG pCO2 POC ABG pO2 ABG pO2 ABG HCO3 ABG Base Excess ABG Hemoglobin Oxyhemoglobin Sodium Potassium Chloride Carbon Dioxide BUN Creatinine Glucose POC Glucose 206 H 114 H 115 H Lactic Acid Calcium Phosphorus Magnesium Direct Bilirubin AST ALT Alkaline Phosphatase Lactate Dehydrogenase Troponin T C-Reactive Protein Total Protein Albumin Prealbumin Triglycerides Cholesterol LDL Cholesterol Direct HDL Cholesterol PTH Intact Urine pH Urine WBC (Auto) Urine Creatinine Urine Total Protein Fluid Total Protein Vancomycin Trough Rheumatoid Factor Complement C4 Miscellaneous Test Crossmatch 09/22/16 09/22/16 09/22/16 07:50 07:50 12:00 WBC 17.8 H RBC 3.04 L Hgb 8.0 L Hct 24.7 L MCV MCH 26 L MCHC RDW 21.6 H Plt Count Lymph % (Auto) [place] % (Auto) Lymph # [place] # Baso # Seg Neutrophils % Seg Neuts % (Manual) Lymphocytes % (Manual) Monocytes % (Manual) Eosinophils % (Manual) Basophils % (Manual) Nucleated RBC % Seg Neutrophils # Seg Neutrophils # Man Lymphocytes # (Manual) Monocytes # (Manual) Eosinophils # (Manual) Basophils # (Manual) PT INR Fibrinogen dRVVT Confirm Interp Factor V Activity POC ABG pH POC ABG pCO2 POC ABG pO2 ABG pO2 ABG HCO3 ABG Base Excess ABG Hemoglobin Oxyhemoglobin Sodium 150 H Potassium Chloride 118.2 H Carbon Dioxide 14 L BUN 111 H Creatinine 3.7 H Glucose 157 H POC Glucose 183 H Lactic Acid Calcium Phosphorus Magnesium Direct Bilirubin AST ALT Alkaline Phosphatase Lactate Dehydrogenase Troponin T C-Reactive Protein Total Protein Albumin Prealbumin Triglycerides Cholesterol LDL Cholesterol Direct HDL Cholesterol PTH Intact Urine pH Urine WBC (Auto) Urine Creatinine Urine Total Protein Fluid Total Protein Vancomycin Trough Rheumatoid Factor Complement C4 Miscellaneous Test Crossmatch 09/22/16 09/22/16 09/23/16 17:29 23:10 05:00 WBC 19.2 H RBC 3.13 L Hgb 8.0 L Hct 25.2 L MCV MCH 26 L MCHC RDW 22.1 H Plt Count Lymph % (Auto) [place] % (Auto) Lymph # [place] # Baso # Seg Neutrophils % Seg Neuts % (Manual) 92.0 H Lymphocytes % (Manual) 3.0 L Monocytes % (Manual) Eosinophils % (Manual) Basophils % (Manual) Nucleated RBC % Seg Neutrophils # Seg Neutrophils # Man 17.7 H Lymphocytes # (Manual) 0.6 L Monocytes # (Manual) Eosinophils # (Manual) Basophils # (Manual) PT INR Fibrinogen dRVVT Confirm Interp Factor V Activity POC ABG pH POC ABG pCO2 POC ABG pO2 ABG pO2 ABG HCO3 ABG Base Excess ABG Hemoglobin Oxyhemoglobin Sodium Potassium Chloride Carbon Dioxide BUN Creatinine Glucose POC Glucose 197 H 169 H Lactic Acid Calcium Phosphorus Magnesium Direct Bilirubin AST ALT Alkaline Phosphatase Lactate Dehydrogenase Troponin T C-Reactive Protein Total Protein Albumin Prealbumin Triglycerides Cholesterol LDL Cholesterol Direct HDL Cholesterol PTH Intact Urine pH Urine WBC (Auto) Urine Creatinine Urine Total Protein Fluid Total Protein Vancomycin Trough Rheumatoid Factor Complement C4 Miscellaneous Test Crossmatch 09/23/16 09/23/16 09/23/16 05:00 05:00 05:10 WBC RBC Hgb Hct MCV MCH MCHC RDW Plt Count Lymph % (Auto) [place] % (Auto) Lymph # [place] # Baso # Seg Neutrophils % Seg Neuts % (Manual) Lymphocytes % (Manual) Monocytes % (Manual) Eosinophils % (Manual) Basophils % (Manual) Nucleated RBC % Seg Neutrophils # Seg Neutrophils # Man Lymphocytes # (Manual) Monocytes # (Manual) Eosinophils # (Manual) Basophils # (Manual) PT INR Fibrinogen dRVVT Confirm Interp Factor V Activity POC ABG pH POC ABG pCO2 POC ABG pO2 ABG pO2 ABG HCO3 ABG Base Excess ABG Hemoglobin Oxyhemoglobin Sodium 147 H Potassium 3.2 L Chloride 115.7 H Carbon Dioxide 13 L BUN 111 H Creatinine 3.8 H Glucose 194 H POC Glucose 188 H Lactic Acid Calcium 7.3 L D Phosphorus Magnesium Direct Bilirubin AST ALT Alkaline Phosphatase Lactate Dehydrogenase Troponin T C-Reactive Protein 3.20 H Total Protein Albumin Prealbumin Triglycerides Cholesterol LDL Cholesterol Direct HDL Cholesterol PTH Intact Urine pH Urine WBC (Auto) Urine Creatinine Urine Total Protein Fluid Total Protein Vancomycin Trough Rheumatoid Factor Complement C4 Miscellaneous Test Crossmatch 09/23/16 09/23/16 09/23/16 11:37 12:29 18:01 WBC RBC Hgb Hct MCV MCH MCHC RDW Plt Count Lymph % (Auto) [place] % (Auto) Lymph # [place] # Baso # Seg Neutrophils % Seg Neuts % (Manual) Lymphocytes % (Manual) Monocytes % (Manual) Eosinophils % (Manual) Basophils % (Manual) Nucleated RBC % Seg Neutrophils # Seg Neutrophils # Man Lymphocytes # (Manual) Monocytes # (Manual) Eosinophils # (Manual) Basophils # (Manual) PT INR Fibrinogen dRVVT Confirm Interp Factor V Activity POC ABG pH POC ABG pCO2 18.9 L POC ABG pO2 143 H ABG pO2 ABG HCO3 ABG Base Excess ABG Hemoglobin Oxyhemoglobin Sodium Potassium Chloride Carbon Dioxide BUN Creatinine Glucose POC Glucose 153 H 108 H Lactic Acid Calcium Phosphorus Magnesium Direct Bilirubin AST ALT Alkaline Phosphatase Lactate Dehydrogenase Troponin T C-Reactive Protein Total Protein Albumin Prealbumin Triglycerides Cholesterol LDL Cholesterol Direct HDL Cholesterol PTH Intact Urine pH Urine WBC (Auto) Urine Creatinine Urine Total Protein Fluid Total Protein Vancomycin Trough Rheumatoid Factor Complement C4 Miscellaneous Test Crossmatch 09/23/16 09/23/16 09/24/16 21:19 23:43 05:16 WBC RBC Hgb Hct MCV MCH MCHC RDW Plt Count Lymph % (Auto) [place] % (Auto) Lymph # [place] # Baso # Seg Neutrophils % Seg Neuts % (Manual) Lymphocytes % (Manual) Monocytes % (Manual) Eosinophils % (Manual) Basophils % (Manual) Nucleated RBC % Seg Neutrophils # Seg Neutrophils # Man Lymphocytes # (Manual) Monocytes # (Manual) Eosinophils # (Manual) Basophils # (Manual) PT INR Fibrinogen dRVVT Confirm Interp Factor V Activity POC ABG pH POC ABG pCO2 17.3 L POC ABG pO2 112 H ABG pO2 ABG HCO3 ABG Base Excess ABG Hemoglobin Oxyhemoglobin Sodium Potassium Chloride Carbon Dioxide BUN Creatinine Glucose POC Glucose 143 H 164 H Lactic Acid Calcium Phosphorus Magnesium Direct Bilirubin AST ALT Alkaline Phosphatase Lactate Dehydrogenase Troponin T C-Reactive Protein Total Protein Albumin Prealbumin Triglycerides Cholesterol LDL Cholesterol Direct HDL Cholesterol PTH Intact Urine pH Urine WBC (Auto) Urine Creatinine Urine Total Protein Fluid Total Protein Vancomycin Trough Rheumatoid Factor Complement C4 Miscellaneous Test Crossmatch 09/24/16 09/24/16 09/24/16 05:21 11:58 17:06 WBC RBC Hgb Hct MCV MCH MCHC RDW Plt Count Lymph % (Auto) [place] % (Auto) Lymph # [place] # Baso # Seg Neutrophils % Seg Neuts % (Manual) Lymphocytes % (Manual) Monocytes % (Manual) Eosinophils % (Manual) Basophils % (Manual) Nucleated RBC % Seg Neutrophils # Seg Neutrophils # Man Lymphocytes # (Manual) Monocytes # (Manual) Eosinophils # (Manual) Basophils # (Manual) PT INR Fibrinogen dRVVT Confirm Interp Factor V Activity POC ABG pH POC ABG pCO2 POC ABG pO2 ABG pO2 ABG HCO3 ABG Base Excess ABG Hemoglobin Oxyhemoglobin Sodium Potassium Chloride Carbon Dioxide 10 L BUN 103 H Creatinine 4.3 H Glucose 163 H POC Glucose 173 H 167 H Lactic Acid Calcium 6.5 L Phosphorus Magnesium Direct Bilirubin AST ALT Alkaline Phosphatase Lactate Dehydrogenase Troponin T C-Reactive Protein Total Protein Albumin Prealbumin Triglycerides Cholesterol LDL Cholesterol Direct HDL Cholesterol PTH Intact Urine pH Urine WBC (Auto) Urine Creatinine Urine Total Protein Fluid Total Protein Vancomycin Trough Rheumatoid Factor Complement C4 Miscellaneous Test Crossmatch 09/24/16 09/24/16 09/24/16 20:15 21:02 23:48 WBC RBC Hgb Hct MCV MCH MCHC RDW Plt Count Lymph % (Auto) [place] % (Auto) Lymph # [place] # Baso # Seg Neutrophils % Seg Neuts % (Manual) Lymphocytes % (Manual) Monocytes % (Manual) Eosinophils % (Manual) Basophils % (Manual) Nucleated RBC % Seg Neutrophils # Seg Neutrophils # Man Lymphocytes # (Manual) Monocytes # (Manual) Eosinophils # (Manual) Basophils # (Manual) PT INR Fibrinogen dRVVT Confirm Interp Factor V Activity POC ABG pH 7.288 L POC ABG pCO2 30.2 L 21.5 L POC ABG pO2 32 L 39 L ABG pO2 ABG HCO3 ABG Base Excess ABG Hemoglobin Oxyhemoglobin Sodium Potassium Chloride Carbon Dioxide BUN Creatinine Glucose POC Glucose 109 H Lactic Acid Calcium Phosphorus Magnesium Direct Bilirubin AST ALT Alkaline Phosphatase Lactate Dehydrogenase Troponin T C-Reactive Protein Total Protein Albumin Prealbumin Triglycerides Cholesterol LDL Cholesterol Direct HDL Cholesterol PTH Intact Urine pH Urine WBC (Auto) Urine Creatinine Urine Total Protein Fluid Total Protein Vancomycin Trough Rheumatoid Factor Complement C4 Miscellaneous Test Crossmatch 09/25/16 09/25/16 09/25/16 04:20 04:20 04:20 WBC RBC 2.58 L Hgb 7.0 L Hct 21.0 L MCV MCH 27 L MCHC RDW 23.8 H Plt Count Lymph % (Auto) [place] % (Auto) Lymph # [place] # Baso # Seg Neutrophils % Seg Neuts % (Manual) Lymphocytes % (Manual) 12.0 L Monocytes % (Manual) Eosinophils % (Manual) 7.0 H Basophils % (Manual) 2.0 H Nucleated RBC % Seg Neutrophils # Seg Neutrophils # Man Lymphocytes # (Manual) 0.9 L Monocytes # (Manual) Eosinophils # (Manual) 0.5 H Basophils # (Manual) PT INR Fibrinogen dRVVT Confirm Interp Factor V Activity POC ABG pH POC ABG pCO2 POC ABG pO2 ABG pO2 ABG HCO3 ABG Base Excess ABG Hemoglobin Oxyhemoglobin Sodium Potassium Chloride Carbon Dioxide 15 L BUN 72 H Creatinine 3.8 H Glucose POC Glucose Lactic Acid Calcium 6.0 L Phosphorus 4.60 H Magnesium 1.60 L Direct Bilirubin AST ALT Alkaline Phosphatase Lactate Dehydrogenase Troponin T C-Reactive Protein Total Protein Albumin Prealbumin Triglycerides Cholesterol LDL Cholesterol Direct HDL Cholesterol PTH Intact Urine pH Urine WBC (Auto) Urine Creatinine Urine Total Protein Fluid Total Protein Vancomycin Trough Rheumatoid Factor Complement C4 Miscellaneous Test Crossmatch 09/25/16 09/25/16 09/25/16 04:57 08:02 10:30 WBC RBC Hgb Hct MCV MCH MCHC RDW Plt Count Lymph % (Auto) [place] % (Auto) Lymph # [place] # Baso # Seg Neutrophils % Seg Neuts % (Manual) Lymphocytes % (Manual) Monocytes % (Manual) Eosinophils % (Manual) Basophils % (Manual) Nucleated RBC % Seg Neutrophils # Seg Neutrophils # Man Lymphocytes # (Manual) Monocytes # (Manual) Eosinophils # (Manual) Basophils # (Manual) PT INR Fibrinogen dRVVT Confirm Interp Factor V Activity POC ABG pH POC ABG pCO2 24.7 L POC ABG pO2 152 H ABG pO2 ABG HCO3 ABG Base Excess ABG Hemoglobin Oxyhemoglobin Sodium Potassium Chloride Carbon Dioxide BUN Creatinine Glucose POC Glucose 113 H Lactic Acid Calcium Phosphorus Magnesium Direct Bilirubin AST ALT Alkaline Phosphatase Lactate Dehydrogenase Troponin T C-Reactive Protein Total Protein Albumin Prealbumin Triglycerides Cholesterol LDL Cholesterol Direct HDL Cholesterol PTH Intact Urine pH Urine WBC (Auto) Urine Creatinine Urine Total Protein Fluid Total Protein Vancomycin Trough Rheumatoid Factor Complement C4 Miscellaneous Test Crossmatch See Detail 09/25/16 09/25/16 09/25/16 12:05 17:44 23:47 WBC RBC Hgb Hct MCV MCH MCHC RDW Plt Count Lymph % (Auto) [place] % (Auto) Lymph # [place] # Baso # Seg Neutrophils % Seg Neuts % (Manual) Lymphocytes % (Manual) Monocytes % (Manual) Eosinophils % (Manual) Basophils % (Manual) Nucleated RBC % Seg Neutrophils # Seg Neutrophils # Man Lymphocytes # (Manual) Monocytes # (Manual) Eosinophils # (Manual) Basophils # (Manual) PT INR Fibrinogen dRVVT Confirm Interp Factor V Activity POC ABG pH POC ABG pCO2 POC ABG pO2 ABG pO2 ABG HCO3 ABG Base Excess ABG Hemoglobin Oxyhemoglobin Sodium Potassium Chloride Carbon Dioxide BUN Creatinine Glucose POC Glucose 117 H 119 H 150 H Lactic Acid Calcium Phosphorus Magnesium Direct Bilirubin AST ALT Alkaline Phosphatase Lactate Dehydrogenase Troponin T C-Reactive Protein Total Protein Albumin Prealbumin Triglycerides Cholesterol LDL Cholesterol Direct HDL Cholesterol PTH Intact Urine pH Urine WBC (Auto) Urine Creatinine Urine Total Protein Fluid Total Protein Vancomycin Trough Rheumatoid Factor Complement C4 Miscellaneous Test Crossmatch 09/26/16 09/26/16 09/26/16 04:25 04:25 04:25 WBC RBC 2.65 L Hgb 7.4 L Hct 21.6 L MCV MCH MCHC RDW 22.5 H Plt Count Lymph % (Auto) [place] % (Auto) Lymph # [place] # Baso # Seg Neutrophils % Seg Neuts % (Manual) Lymphocytes % (Manual) 6.0 L Monocytes % (Manual) Eosinophils % (Manual) 11.0 H Basophils % (Manual) Nucleated RBC % Seg Neutrophils # Seg Neutrophils # Man Lymphocytes # (Manual) 0.4 L Monocytes # (Manual) Eosinophils # (Manual) 0.6 H Basophils # (Manual) PT INR Fibrinogen dRVVT Confirm Interp Factor V Activity POC ABG pH POC ABG pCO2 POC ABG pO2 ABG pO2 ABG HCO3 ABG Base Excess ABG Hemoglobin Oxyhemoglobin Sodium Potassium Chloride 97.0 L Carbon Dioxide 19 L BUN 43 H Creatinine 2.6 H Glucose 130 H POC Glucose Lactic Acid 4.40 H* Calcium 6.7 L Phosphorus Magnesium Direct Bilirubin AST ALT Alkaline Phosphatase Lactate Dehydrogenase Troponin T C-Reactive Protein Total Protein Albumin Prealbumin Triglycerides Cholesterol LDL Cholesterol Direct HDL Cholesterol PTH Intact Urine pH Urine WBC (Auto) Urine Creatinine Urine Total Protein Fluid Total Protein Vancomycin Trough Rheumatoid Factor Complement C4 Miscellaneous Test Crossmatch 09/26/16 09/26/16 09/26/16 05:20 11:44 12:12 WBC RBC Hgb Hct MCV MCH MCHC RDW Plt Count Lymph % (Auto) [place] % (Auto) Lymph # [place] # Baso # Seg Neutrophils % Seg Neuts % (Manual) Lymphocytes % (Manual) Monocytes % (Manual) Eosinophils % (Manual) Basophils % (Manual) Nucleated RBC % Seg Neutrophils # Seg Neutrophils # Man Lymphocytes # (Manual) Monocytes # (Manual) Eosinophils # (Manual) Basophils # (Manual) PT INR Fibrinogen dRVVT Confirm Interp Factor V Activity POC ABG pH POC ABG pCO2 27.0 L POC ABG pO2 69 L ABG pO2 ABG HCO3 ABG Base Excess ABG Hemoglobin Oxyhemoglobin Sodium Potassium Chloride Carbon Dioxide BUN Creatinine Glucose POC Glucose 121 H 128 H Lactic Acid Calcium Phosphorus Magnesium Direct Bilirubin AST ALT Alkaline Phosphatase Lactate Dehydrogenase Troponin T C-Reactive Protein Total Protein Albumin Prealbumin Triglycerides Cholesterol LDL Cholesterol Direct HDL Cholesterol PTH Intact Urine pH Urine WBC (Auto) Urine Creatinine Urine Total Protein Fluid Total Protein Vancomycin Trough Rheumatoid Factor Complement C4 Miscellaneous Test Crossmatch 09/26/16 09/26/16 09/27/16 18:31 23:40 08:20 WBC RBC Hgb Hct MCV MCH MCHC RDW Plt Count Lymph % (Auto) [place] % (Auto) Lymph # [place] # Baso # Seg Neutrophils % Seg Neuts % (Manual) Lymphocytes % (Manual) Monocytes % (Manual) Eosinophils % (Manual) Basophils % (Manual) Nucleated RBC % Seg Neutrophils # Seg Neutrophils # Man Lymphocytes # (Manual) Monocytes # (Manual) Eosinophils # (Manual) Basophils # (Manual) PT INR Fibrinogen dRVVT Confirm Interp Factor V Activity POC ABG pH POC ABG pCO2 POC ABG pO2 ABG pO2 ABG HCO3 ABG Base Excess ABG Hemoglobin Oxyhemoglobin Sodium Potassium Chloride Carbon Dioxide BUN Creatinine Glucose POC Glucose 120 H 133 H Lactic Acid 4.10 H* Calcium Phosphorus Magnesium Direct Bilirubin AST ALT Alkaline Phosphatase Lactate Dehydrogenase Troponin T C-Reactive Protein Total Protein Albumin Prealbumin Triglycerides Cholesterol LDL Cholesterol Direct HDL Cholesterol PTH Intact Urine pH Urine WBC (Auto) Urine Creatinine Urine Total Protein Fluid Total Protein Vancomycin Trough Rheumatoid Factor Complement C4 Miscellaneous Test Crossmatch 09/27/16 09/27/16 09/27/16 11:23 15:00 18:15 WBC RBC Hgb Hct MCV MCH MCHC RDW Plt Count Lymph % (Auto) [place] % (Auto) Lymph # [place] # Baso # Seg Neutrophils % Seg Neuts % (Manual) Lymphocytes % (Manual) Monocytes % (Manual) Eosinophils % (Manual) Basophils % (Manual) Nucleated RBC % Seg Neutrophils # Seg Neutrophils # Man Lymphocytes # (Manual) Monocytes # (Manual) Eosinophils # (Manual) Basophils # (Manual) PT INR Fibrinogen dRVVT Confirm Interp Factor V Activity POC ABG pH 7.459 H POC ABG pCO2 27.1 L POC ABG pO2 140 H ABG pO2 ABG HCO3 ABG Base Excess ABG Hemoglobin Oxyhemoglobin Sodium Potassium Chloride Carbon Dioxide BUN Creatinine Glucose POC Glucose 114 H 127 H Lactic Acid Calcium Phosphorus Magnesium Direct Bilirubin AST ALT Alkaline Phosphatase Lactate Dehydrogenase Troponin T C-Reactive Protein Total Protein Albumin Prealbumin Triglycerides Cholesterol LDL Cholesterol Direct HDL Cholesterol PTH Intact Urine pH Urine WBC (Auto) Urine Creatinine Urine Total Protein Fluid Total Protein Vancomycin Trough Rheumatoid Factor Complement C4 Miscellaneous Test Crossmatch 09/27/16 09/27/16 09/28/16 Unknown Unknown 03:45 WBC RBC 2.49 L Hgb 6.8 L Hct 20.7 L MCV MCH 27 L MCHC RDW 22.1 H Plt Count Lymph % (Auto) [place] % (Auto) Lymph # [place] # Baso # Seg Neutrophils % Seg Neuts % (Manual) 32.0 L Lymphocytes % (Manual) 12.0 L Monocytes % (Manual) 11.0 H Eosinophils % (Manual) 10.0 H Basophils % (Manual) Nucleated RBC % Seg Neutrophils # Seg Neutrophils # Man Lymphocytes # (Manual) 1.0 L Monocytes # (Manual) 0.9 H Eosinophils # (Manual) 0.8 H Basophils # (Manual) PT INR Fibrinogen dRVVT Confirm Interp Factor V Activity POC ABG pH POC ABG pCO2 POC ABG pO2 ABG pO2 ABG HCO3 ABG Base Excess ABG Hemoglobin Oxyhemoglobin Sodium 135 L 135 L Potassium 3.5 L Chloride 93.6 L 94.4 L Carbon Dioxide 17 L 21 L BUN 45 H 28 H Creatinine 3.3 H 2.5 H Glucose 106 H POC Glucose Lactic Acid Calcium 7.3 L 7.1 L Phosphorus Magnesium Direct Bilirubin AST ALT Alkaline Phosphatase Lactate Dehydrogenase Troponin T C-Reactive Protein Total Protein Albumin Prealbumin Triglycerides Cholesterol LDL Cholesterol Direct HDL Cholesterol PTH Intact Urine pH Urine WBC (Auto) Urine Creatinine Urine Total Protein Fluid Total Protein Vancomycin Trough Rheumatoid Factor Complement C4 Miscellaneous Test Crossmatch 09/28/16 09/28/16 09/28/16 03:45 07:25 11:58 WBC 13.3 H RBC 3.01 L Hgb 8.4 L Hct 25.0 L MCV MCH MCHC RDW 20.5 H Plt Count 128 L Lymph % (Auto) [place] % (Auto) Lymph # [place] # Baso # Seg Neutrophils % Seg Neuts % (Manual) Lymphocytes % (Manual) 7.0 L Monocytes % (Manual) Eosinophils % (Manual) 6.0 H Basophils % (Manual) Nucleated RBC % Seg Neutrophils # Seg Neutrophils # Man Lymphocytes # (Manual) 0.9 L Monocytes # (Manual) Eosinophils # (Manual) 0.8 H Basophils # (Manual) PT INR Fibrinogen dRVVT Confirm Interp Factor V Activity POC ABG pH POC ABG pCO2 POC ABG pO2 ABG pO2 ABG HCO3 ABG Base Excess ABG Hemoglobin Oxyhemoglobin Sodium Potassium Chloride Carbon Dioxide BUN Creatinine Glucose POC Glucose 121 H Lactic Acid 4.50 H* Calcium Phosphorus Magnesium Direct Bilirubin AST ALT Alkaline Phosphatase Lactate Dehydrogenase Troponin T C-Reactive Protein Total Protein Albumin Prealbumin Triglycerides Cholesterol LDL Cholesterol Direct HDL Cholesterol PTH Intact Urine pH Urine WBC (Auto) Urine Creatinine Urine Total Protein Fluid Total Protein Vancomycin Trough Rheumatoid Factor Complement C4 Miscellaneous Test Crossmatch 09/29/16 09/29/16 09/29/16 06:45 06:45 06:45 WBC 14.9 H RBC 2.74 L Hgb 7.6 L Hct 23.2 L MCV MCH MCHC RDW 20.5 H Plt Count 81 L Lymph % (Auto) [place] % (Auto) Lymph # [place] # Baso # Seg Neutrophils % Seg Neuts % (Manual) 81.0 H Lymphocytes % (Manual) 4.0 L Monocytes % (Manual) Eosinophils % (Manual) Basophils % (Manual) Nucleated RBC % Seg Neutrophils # Seg Neutrophils # Man 12.1 H Lymphocytes # (Manual) 0.6 L Monocytes # (Manual) Eosinophils # (Manual) Basophils # (Manual) PT INR Fibrinogen dRVVT Confirm Interp Factor V Activity POC ABG pH POC ABG pCO2 POC ABG pO2 ABG pO2 ABG HCO3 ABG Base Excess ABG Hemoglobin Oxyhemoglobin Sodium 133 L Potassium 3.4 L Chloride 92.5 L Carbon Dioxide 21 L BUN 33 H Creatinine 3.0 H Glucose POC Glucose Lactic Acid Calcium 6.6 L Phosphorus Magnesium 1.40 L Direct Bilirubin 0.9 H AST ALT Alkaline Phosphatase Lactate Dehydrogenase Troponin T C-Reactive Protein Total Protein 4.3 L Albumin 1.3 L Prealbumin Triglycerides Cholesterol LDL Cholesterol Direct HDL Cholesterol PTH Intact Urine pH Urine WBC (Auto) Urine Creatinine Urine Total Protein Fluid Total Protein Vancomycin Trough Rheumatoid Factor Complement C4 Miscellaneous Test Crossmatch 09/29/16 09/29/16 09/30/16 17:52 20:12 00:07 WBC RBC Hgb Hct MCV MCH MCHC RDW Plt Count Lymph % (Auto) [place] % (Auto) Lymph # [place] # Baso # Seg Neutrophils % Seg Neuts % (Manual) Lymphocytes % (Manual) Monocytes % (Manual) Eosinophils % (Manual) Basophils % (Manual) Nucleated RBC % Seg Neutrophils # Seg Neutrophils # Man Lymphocytes # (Manual) Monocytes # (Manual) Eosinophils # (Manual) Basophils # (Manual) PT INR Fibrinogen dRVVT Confirm Interp Factor V Activity POC ABG pH POC ABG pCO2 POC ABG pO2 ABG pO2 ABG HCO3 ABG Base Excess ABG Hemoglobin Oxyhemoglobin Sodium Potassium Chloride Carbon Dioxide BUN Creatinine Glucose POC Glucose 50 L 51 L Lactic Acid Calcium Phosphorus Magnesium Direct Bilirubin AST ALT Alkaline Phosphatase Lactate Dehydrogenase Troponin T 0.204 H* C-Reactive Protein Total Protein Albumin Prealbumin Triglycerides Cholesterol 31 L LDL Cholesterol Direct 4 L HDL Cholesterol 3 L PTH Intact Urine pH Urine WBC (Auto) Urine Creatinine Urine Total Protein Fluid Total Protein Vancomycin Trough Rheumatoid Factor Complement C4 Miscellaneous Test Crossmatch 09/30/16 09/30/16 09/30/16 01:30 05:15 06:10 WBC RBC Hgb Hct MCV MCH MCHC RDW Plt Count Lymph % (Auto) [place] % (Auto) Lymph # [place] # Baso # Seg Neutrophils % Seg Neuts % (Manual) Lymphocytes % (Manual) Monocytes % (Manual) Eosinophils % (Manual) Basophils % (Manual) Nucleated RBC % Seg Neutrophils # Seg Neutrophils # Man Lymphocytes # (Manual) Monocytes # (Manual) Eosinophils # (Manual) Basophils # (Manual) PT INR Fibrinogen dRVVT Confirm Interp Factor V Activity POC ABG pH POC ABG pCO2 POC ABG pO2 ABG pO2 ABG HCO3 ABG Base Excess ABG Hemoglobin Oxyhemoglobin Sodium 133 L Potassium 3.2 L Chloride 93.2 L Carbon Dioxide 19 L BUN 36 H Creatinine 3.2 H Glucose 104 H POC Glucose 167 H 146 H Lactic Acid Calcium 6.4 L Phosphorus Magnesium 1.60 L Direct Bilirubin AST ALT Alkaline Phosphatase Lactate Dehydrogenase Troponin T C-Reactive Protein Total Protein Albumin Prealbumin Triglycerides Cholesterol LDL Cholesterol Direct HDL Cholesterol PTH Intact Urine pH Urine WBC (Auto) Urine Creatinine Urine Total Protein Fluid Total Protein Vancomycin Trough Rheumatoid Factor Complement C4 Miscellaneous Test Crossmatch 09/30/16 09/30/16 09/30/16 11:26 13:39 18:38 WBC RBC Hgb Hct MCV MCH MCHC RDW Plt Count Lymph % (Auto) [place] % (Auto) Lymph # [place] # Baso # Seg Neutrophils % Seg Neuts % (Manual) Lymphocytes % (Manual) Monocytes % (Manual) Eosinophils % (Manual) Basophils % (Manual) Nucleated RBC % Seg Neutrophils # Seg Neutrophils # Man Lymphocytes # (Manual) Monocytes # (Manual) Eosinophils # (Manual) Basophils # (Manual) PT INR Fibrinogen dRVVT Confirm Interp Factor V Activity POC ABG pH 7.479 H POC ABG pCO2 29.8 L POC ABG pO2 117 H ABG pO2 ABG HCO3 ABG Base Excess ABG Hemoglobin Oxyhemoglobin Sodium Potassium Chloride Carbon Dioxide BUN Creatinine Glucose POC Glucose 140 H 122 H Lactic Acid Calcium Phosphorus Magnesium Direct Bilirubin AST ALT Alkaline Phosphatase Lactate Dehydrogenase Troponin T C-Reactive Protein Total Protein Albumin Prealbumin Triglycerides Cholesterol LDL Cholesterol Direct HDL Cholesterol PTH Intact Urine pH Urine WBC (Auto) Urine Creatinine Urine Total Protein Fluid Total Protein Vancomycin Trough Rheumatoid Factor Complement C4 Miscellaneous Test Crossmatch 10/01/16 10/01/16 10/01/16 06:00 06:00 12:37 WBC 12.6 H RBC 2.75 L Hgb 7.3 L Hct 23.3 L MCV MCH 27 L MCHC RDW 20.6 H Plt Count 72 L Lymph % (Auto) [place] % (Auto) Lymph # [place] # Baso # Seg Neutrophils % Seg Neuts % (Manual) 31.0 L Lymphocytes % (Manual) 8.0 L Monocytes % (Manual) Eosinophils % (Manual) Basophils % (Manual) Nucleated RBC % 3.0 H Seg Neutrophils # Seg Neutrophils # Man Lymphocytes # (Manual) 1.0 L Monocytes # (Manual) Eosinophils # (Manual) Basophils # (Manual) PT INR Fibrinogen dRVVT Confirm Interp Factor V Activity POC ABG pH POC ABG pCO2 POC ABG pO2 ABG pO2 ABG HCO3 ABG Base Excess ABG Hemoglobin Oxyhemoglobin Sodium 127 L Potassium Chloride 86.8 L Carbon Dioxide 20 L BUN 42 H Creatinine 3.5 H Glucose POC Glucose 65 L Lactic Acid Calcium 7.0 L Phosphorus Magnesium Direct Bilirubin AST ALT Alkaline Phosphatase Lactate Dehydrogenase Troponin T C-Reactive Protein Total Protein Albumin Prealbumin Triglycerides Cholesterol LDL Cholesterol Direct HDL Cholesterol PTH Intact Urine pH Urine WBC (Auto) Urine Creatinine Urine Total Protein Fluid Total Protein Vancomycin Trough Rheumatoid Factor Complement C4 Miscellaneous Test Crossmatch 10/01/16 10/01/16 10/02/16 17:39 23:32 00:59 WBC RBC Hgb Hct MCV MCH MCHC RDW Plt Count Lymph % (Auto) [place] % (Auto) Lymph # [place] # Baso # Seg Neutrophils % Seg Neuts % (Manual) Lymphocytes % (Manual) Monocytes % (Manual) Eosinophils % (Manual) Basophils % (Manual) Nucleated RBC % Seg Neutrophils # Seg Neutrophils # Man Lymphocytes # (Manual) Monocytes # (Manual) Eosinophils # (Manual) Basophils # (Manual) PT INR Fibrinogen dRVVT Confirm Interp Factor V Activity POC ABG pH POC ABG pCO2 POC ABG pO2 ABG pO2 ABG HCO3 ABG Base Excess ABG Hemoglobin Oxyhemoglobin Sodium Potassium Chloride Carbon Dioxide BUN Creatinine Glucose POC Glucose 107 H 52 L 145 H Lactic Acid Calcium Phosphorus Magnesium Direct Bilirubin AST ALT Alkaline Phosphatase Lactate Dehydrogenase Troponin T C-Reactive Protein Total Protein Albumin Prealbumin Triglycerides Cholesterol LDL Cholesterol Direct HDL Cholesterol PTH Intact Urine pH Urine WBC (Auto) Urine Creatinine Urine Total Protein Fluid Total Protein Vancomycin Trough Rheumatoid Factor Complement C4 Miscellaneous Test Crossmatch 10/02/16 10/02/16 10/02/16 10:30 10:50 10:50 WBC 14.7 H RBC 2.76 L Hgb 7.4 L Hct 23.6 L MCV MCH 27 L MCHC RDW 20.2 H Plt Count 79 L Lymph % (Auto) [place] % (Auto) Lymph # [place] # Baso # Seg Neutrophils % Seg Neuts % (Manual) 86.0 H Lymphocytes % (Manual) 6.0 L Monocytes % (Manual) Eosinophils % (Manual) Basophils % (Manual) Nucleated RBC % Seg Neutrophils # Seg Neutrophils # Man 12.6 H Lymphocytes # (Manual) 0.9 L Monocytes # (Manual) Eosinophils # (Manual) Basophils # (Manual) PT INR Fibrinogen dRVVT Confirm Interp Factor V Activity POC ABG pH 7.486 H POC ABG pCO2 30.1 L POC ABG pO2 108 H ABG pO2 ABG HCO3 ABG Base Excess ABG Hemoglobin Oxyhemoglobin Sodium 131 L Potassium 3.4 L Chloride 89.9 L Carbon Dioxide BUN 26 H Creatinine 2.6 H Glucose POC Glucose Lactic Acid Calcium 7.0 L Phosphorus Magnesium Direct Bilirubin AST ALT Alkaline Phosphatase Lactate Dehydrogenase Troponin T C-Reactive Protein Total Protein Albumin Prealbumin Triglycerides Cholesterol LDL Cholesterol Direct HDL Cholesterol PTH Intact Urine pH Urine WBC (Auto) Urine Creatinine Urine Total Protein Fluid Total Protein Vancomycin Trough Rheumatoid Factor Complement C4 Miscellaneous Test Crossmatch 10/02/16 10/03/16 10/03/16 23:45 00:45 05:10 WBC 12.9 H RBC 2.77 L Hgb 7.6 L Hct 23.7 L MCV MCH 27 L MCHC RDW 19.7 H Plt Count 89 L Lymph % (Auto) [place] % (Auto) Lymph # [place] # Baso # Seg Neutrophils % Seg Neuts % (Manual) Lymphocytes % (Manual) 8.0 L Monocytes % (Manual) Eosinophils % (Manual) Basophils % (Manual) Nucleated RBC % Seg Neutrophils # 11.9 H Seg Neutrophils # Man Lymphocytes # (Manual) 1.0 L Monocytes # (Manual) Eosinophils # (Manual) Basophils # (Manual) PT INR Fibrinogen dRVVT Confirm Interp Factor V Activity POC ABG pH POC ABG pCO2 POC ABG pO2 ABG pO2 ABG HCO3 ABG Base Excess ABG Hemoglobin Oxyhemoglobin Sodium Potassium Chloride Carbon Dioxide BUN Creatinine Glucose POC Glucose 55 L 199 H Lactic Acid Calcium Phosphorus Magnesium Direct Bilirubin AST ALT Alkaline Phosphatase Lactate Dehydrogenase Troponin T C-Reactive Protein Total Protein Albumin Prealbumin Triglycerides Cholesterol LDL Cholesterol Direct HDL Cholesterol PTH Intact Urine pH Urine WBC (Auto) Urine Creatinine Urine Total Protein Fluid Total Protein Vancomycin Trough Rheumatoid Factor Complement C4 Miscellaneous Test Crossmatch 10/03/16 10/03/16 10/03/16 05:10 12:14 13:18 WBC RBC Hgb Hct MCV MCH MCHC RDW Plt Count Lymph % (Auto) [place] % (Auto) Lymph # [place] # Baso # Seg Neutrophils % Seg Neuts % (Manual) Lymphocytes % (Manual) Monocytes % (Manual) Eosinophils % (Manual) Basophils % (Manual) Nucleated RBC % Seg Neutrophils # Seg Neutrophils # Man Lymphocytes # (Manual) Monocytes # (Manual) Eosinophils # (Manual) Basophils # (Manual) PT INR Fibrinogen dRVVT Confirm Interp Factor V Activity POC ABG pH POC ABG pCO2 POC ABG pO2 ABG pO2 ABG HCO3 ABG Base Excess ABG Hemoglobin Oxyhemoglobin Sodium 129 L Potassium 3.3 L Chloride 88.8 L Carbon Dioxide 20 L BUN 29 H Creatinine 2.8 H Glucose POC Glucose 68 L 127 H Lactic Acid Calcium 7.2 L Phosphorus Magnesium Direct Bilirubin AST ALT Alkaline Phosphatase Lactate Dehydrogenase Troponin T C-Reactive Protein Total Protein Albumin Prealbumin Triglycerides Cholesterol LDL Cholesterol Direct HDL Cholesterol PTH Intact Urine pH Urine WBC (Auto) Urine Creatinine Urine Total Protein Fluid Total Protein Vancomycin Trough Rheumatoid Factor Complement C4 Miscellaneous Test Crossmatch 10/03/16 10/03/16 10/03/16 14:42 18:21 19:09 WBC RBC Hgb Hct MCV MCH MCHC RDW Plt Count Lymph % (Auto) [place] % (Auto) Lymph # [place] # Baso # Seg Neutrophils % Seg Neuts % (Manual) Lymphocytes % (Manual) Monocytes % (Manual) Eosinophils % (Manual) Basophils % (Manual) Nucleated RBC % Seg Neutrophils # Seg Neutrophils # Man Lymphocytes # (Manual) Monocytes # (Manual) Eosinophils # (Manual) Basophils # (Manual) PT INR Fibrinogen dRVVT Confirm Interp Factor V Activity POC ABG pH 7.499 H POC ABG pCO2 28.4 L POC ABG pO2 44 L ABG pO2 ABG HCO3 ABG Base Excess ABG Hemoglobin Oxyhemoglobin Sodium Potassium Chloride Carbon Dioxide BUN Creatinine Glucose POC Glucose 64 L 205 H Lactic Acid Calcium Phosphorus Magnesium Direct Bilirubin AST ALT Alkaline Phosphatase Lactate Dehydrogenase Troponin T C-Reactive Protein Total Protein Albumin Prealbumin Triglycerides Cholesterol LDL Cholesterol Direct HDL Cholesterol PTH Intact Urine pH Urine WBC (Auto) Urine Creatinine Urine Total Protein Fluid Total Protein Vancomycin Trough Rheumatoid Factor Complement C4 Miscellaneous Test Crossmatch 10/03/16 10/04/16 10/04/16 23:33 04:18 06:30 WBC RBC 2.54 L Hgb 7.1 L Hct 21.7 L MCV MCH MCHC RDW 19.5 H Plt Count 76 L Lymph % (Auto) [place] % (Auto) Lymph # [place] # Baso # Seg Neutrophils % Seg Neuts % (Manual) 88.0 H Lymphocytes % (Manual) 6.0 L Monocytes % (Manual) Eosinophils % (Manual) Basophils % (Manual) Nucleated RBC % Seg Neutrophils # Seg Neutrophils # Man 8.8 H Lymphocytes # (Manual) 0.6 L Monocytes # (Manual) Eosinophils # (Manual) Basophils # (Manual) PT INR Fibrinogen dRVVT Confirm Interp Factor V Activity POC ABG pH 7.461 H POC ABG pCO2 33.6 L POC ABG pO2 211 H ABG pO2 ABG HCO3 ABG Base Excess ABG Hemoglobin Oxyhemoglobin Sodium Potassium Chloride Carbon Dioxide BUN Creatinine Glucose POC Glucose 136 H Lactic Acid Calcium Phosphorus Magnesium Direct Bilirubin AST ALT Alkaline Phosphatase Lactate Dehydrogenase Troponin T C-Reactive Protein Total Protein Albumin Prealbumin Triglycerides Cholesterol LDL Cholesterol Direct HDL Cholesterol PTH Intact Urine pH Urine WBC (Auto) Urine Creatinine Urine Total Protein Fluid Total Protein Vancomycin Trough Rheumatoid Factor Complement C4 Miscellaneous Test Crossmatch 10/04/16 10/04/16 10/04/16 06:30 11:45 17:54 WBC RBC Hgb Hct MCV MCH MCHC RDW Plt Count Lymph % (Auto) [place] % (Auto) Lymph # [place] # Baso # Seg Neutrophils % Seg Neuts % (Manual) Lymphocytes % (Manual) Monocytes % (Manual) Eosinophils % (Manual) Basophils % (Manual) Nucleated RBC % Seg Neutrophils # Seg Neutrophils # Man Lymphocytes # (Manual) Monocytes # (Manual) Eosinophils # (Manual) Basophils # (Manual) PT INR Fibrinogen dRVVT Confirm Interp Factor V Activity POC ABG pH POC ABG pCO2 POC ABG pO2 ABG pO2 ABG HCO3 ABG Base Excess ABG Hemoglobin Oxyhemoglobin Sodium 128 L Potassium Chloride 87.4 L Carbon Dioxide 20 L BUN 34 H Creatinine 2.9 H Glucose 127 H POC Glucose 158 H 160 H Lactic Acid Calcium 7.4 L Phosphorus Magnesium Direct Bilirubin AST ALT Alkaline Phosphatase Lactate Dehydrogenase Troponin T C-Reactive Protein Total Protein Albumin Prealbumin Triglycerides Cholesterol LDL Cholesterol Direct HDL Cholesterol PTH Intact Urine pH Urine WBC (Auto) Urine Creatinine Urine Total Protein Fluid Total Protein Vancomycin Trough Rheumatoid Factor Complement C4 Miscellaneous Test Crossmatch 10/04/16 10/05/16 10/05/16 23:25 04:30 05:00 WBC RBC 2.64 L Hgb 7.5 L Hct 22.6 L MCV MCH MCHC RDW 19.3 H Plt Count 80 L Lymph % (Auto) [place] % (Auto) Lymph # [place] # Baso # Seg Neutrophils % Seg Neuts % (Manual) Lymphocytes % (Manual) 12.0 L Monocytes % (Manual) Eosinophils % (Manual) Basophils % (Manual) Nucleated RBC % Seg Neutrophils # Seg Neutrophils # Man Lymphocytes # (Manual) Monocytes # (Manual) Eosinophils # (Manual) Basophils # (Manual) PT INR Fibrinogen dRVVT Confirm Interp Factor V Activity POC ABG pH 7.475 H POC ABG pCO2 33.3 L POC ABG pO2 140 H ABG pO2 ABG HCO3 ABG Base Excess ABG Hemoglobin Oxyhemoglobin Sodium Potassium Chloride Carbon Dioxide BUN Creatinine Glucose POC Glucose 141 H Lactic Acid Calcium Phosphorus Magnesium Direct Bilirubin AST ALT Alkaline Phosphatase Lactate Dehydrogenase Troponin T C-Reactive Protein Total Protein Albumin Prealbumin Triglycerides Cholesterol LDL Cholesterol Direct HDL Cholesterol PTH Intact Urine pH Urine WBC (Auto) Urine Creatinine Urine Total Protein Fluid Total Protein Vancomycin Trough Rheumatoid Factor Complement C4 Miscellaneous Test Crossmatch 10/05/16 10/05/16 10/05/16 05:00 05:09 12:58 WBC RBC Hgb Hct MCV MCH MCHC RDW Plt Count Lymph % (Auto) [place] % (Auto) Lymph # [place] # Baso # Seg Neutrophils % Seg Neuts % (Manual) Lymphocytes % (Manual) Monocytes % (Manual) Eosinophils % (Manual) Basophils % (Manual) Nucleated RBC % Seg Neutrophils # Seg Neutrophils # Man Lymphocytes # (Manual) Monocytes # (Manual) Eosinophils # (Manual) Basophils # (Manual) PT INR Fibrinogen dRVVT Confirm Interp Factor V Activity POC ABG pH POC ABG pCO2 POC ABG pO2 ABG pO2 ABG HCO3 ABG Base Excess ABG Hemoglobin Oxyhemoglobin Sodium 131 L Potassium Chloride 94.0 L Carbon Dioxide 20 L BUN 22 H Creatinine 2.0 H Glucose 123 H POC Glucose 166 H 179 H Lactic Acid Calcium 7.7 L Phosphorus 2.20 L D Magnesium Direct Bilirubin AST ALT Alkaline Phosphatase Lactate Dehydrogenase Troponin T C-Reactive Protein Total Protein Albumin Prealbumin Triglycerides Cholesterol LDL Cholesterol Direct HDL Cholesterol PTH Intact Urine pH Urine WBC (Auto) Urine Creatinine Urine Total Protein Fluid Total Protein Vancomycin Trough Rheumatoid Factor Complement C4 Miscellaneous Test Crossmatch 10/05/16 10/05/16 10/05/16 15:50 18:53 23:12 WBC RBC Hgb Hct MCV MCH MCHC RDW Plt Count Lymph % (Auto) [place] % (Auto) Lymph # [place] # Baso # Seg Neutrophils % Seg Neuts % (Manual) Lymphocytes % (Manual) Monocytes % (Manual) Eosinophils % (Manual) Basophils % (Manual) Nucleated RBC % Seg Neutrophils # Seg Neutrophils # Man Lymphocytes # (Manual) Monocytes # (Manual) Eosinophils # (Manual) Basophils # (Manual) PT INR Fibrinogen dRVVT Confirm Interp Factor V Activity POC ABG pH POC ABG pCO2 POC ABG pO2 ABG pO2 ABG HCO3 ABG Base Excess ABG Hemoglobin Oxyhemoglobin Sodium Potassium Chloride Carbon Dioxide BUN Creatinine Glucose POC Glucose 150 H 164 H Lactic Acid Calcium Phosphorus Magnesium Direct Bilirubin AST ALT Alkaline Phosphatase Lactate Dehydrogenase Troponin T C-Reactive Protein Total Protein Albumin Prealbumin Triglycerides Cholesterol LDL Cholesterol Direct HDL Cholesterol PTH Intact Urine pH Urine WBC (Auto) Urine Creatinine Urine Total Protein Fluid Total Protein Vancomycin Trough Rheumatoid Factor Complement C4 Miscellaneous Test Crossmatch See Detail 10/06/16 10/06/16 10/06/16 03:50 03:50 04:53 WBC RBC 3.00 L Hgb 8.6 L Hct 25.8 L MCV MCH MCHC RDW 17.9 H Plt Count 65 L Lymph % (Auto) [place] % (Auto) Lymph # [place] # Baso # Seg Neutrophils % Seg Neuts % (Manual) 30.0 L Lymphocytes % (Manual) 5.0 L Monocytes % (Manual) Eosinophils % (Manual) Basophils % (Manual) Nucleated RBC % Seg Neutrophils # Seg Neutrophils # Man Lymphocytes # (Manual) 0.4 L Monocytes # (Manual) Eosinophils # (Manual) Basophils # (Manual) PT INR Fibrinogen dRVVT Confirm Interp Factor V Activity POC ABG pH 7.310 L POC ABG pCO2 49.0 H POC ABG pO2 ABG pO2 ABG HCO3 ABG Base Excess ABG Hemoglobin Oxyhemoglobin Sodium 133 L Potassium Chloride 95.9 L Carbon Dioxide BUN 26 H Creatinine 2.0 H Glucose 116 H POC Glucose Lactic Acid Calcium 7.8 L Phosphorus Magnesium Direct Bilirubin AST ALT Alkaline Phosphatase Lactate Dehydrogenase Troponin T C-Reactive Protein Total Protein Albumin Prealbumin Triglycerides Cholesterol LDL Cholesterol Direct HDL Cholesterol PTH Intact Urine pH Urine WBC (Auto) Urine Creatinine Urine Total Protein Fluid Total Protein Vancomycin Trough Rheumatoid Factor Complement C4 Miscellaneous Test Crossmatch 10/06/16 10/06/16 10/06/16 05:23 11:52 18:34 WBC RBC Hgb Hct MCV MCH MCHC RDW Plt Count Lymph % (Auto) [place] % (Auto) Lymph # [place] # Baso # Seg Neutrophils % Seg Neuts % (Manual) Lymphocytes % (Manual) Monocytes % (Manual) Eosinophils % (Manual) Basophils % (Manual) Nucleated RBC % Seg Neutrophils # Seg Neutrophils # Man Lymphocytes # (Manual) Monocytes # (Manual) Eosinophils # (Manual) Basophils # (Manual) PT INR Fibrinogen dRVVT Confirm Interp Factor V Activity POC ABG pH POC ABG pCO2 POC ABG pO2 ABG pO2 ABG HCO3 ABG Base Excess ABG Hemoglobin Oxyhemoglobin Sodium Potassium Chloride Carbon Dioxide BUN Creatinine Glucose POC Glucose 126 H 116 H 129 H Lactic Acid Calcium Phosphorus Magnesium Direct Bilirubin AST ALT Alkaline Phosphatase Lactate Dehydrogenase Troponin T C-Reactive Protein Total Protein Albumin Prealbumin Triglycerides Cholesterol LDL Cholesterol Direct HDL Cholesterol PTH Intact Urine pH Urine WBC (Auto) Urine Creatinine Urine Total Protein Fluid Total Protein Vancomycin Trough Rheumatoid Factor Complement C4 Miscellaneous Test Crossmatch 10/07/16 10/07/16 10/07/16 03:45 05:00 10:00 WBC 17.0 H RBC 2.68 L Hgb 7.3 L Hct 25.3 L MCV MCH 27 L MCHC 29 L RDW 19.6 H Plt Count 74 L Lymph % (Auto) [place] % (Auto) Lymph # [place] # Baso # Seg Neutrophils % Seg Neuts % (Manual) Lymphocytes % (Manual) 12.0 L Monocytes % (Manual) Eosinophils % (Manual) Basophils % (Manual) Nucleated RBC % 4.0 H Seg Neutrophils # Seg Neutrophils # Man 10.7 H Lymphocytes # (Manual) Monocytes # (Manual) Eosinophils # (Manual) Basophils # (Manual) PT INR Fibrinogen dRVVT Confirm Interp Factor V Activity POC ABG pH POC ABG pCO2 POC ABG pO2 ABG pO2 ABG HCO3 ABG Base Excess ABG Hemoglobin Oxyhemoglobin Sodium 130 L Potassium 3.2 L Chloride 93.9 L Carbon Dioxide 20 L BUN 44 H Creatinine 2.7 H Glucose 129 H POC Glucose Lactic Acid Calcium 7.4 L Phosphorus Magnesium Direct Bilirubin AST ALT 6 L Alkaline Phosphatase 195 H Lactate Dehydrogenase Troponin T C-Reactive Protein Total Protein 4.9 L Albumin 1.0 L Prealbumin Triglycerides Cholesterol LDL Cholesterol Direct HDL Cholesterol PTH Intact Urine pH Urine WBC (Auto) Urine Creatinine Urine Total Protein Fluid Total Protein Vancomycin Trough Rheumatoid Factor Complement C4 Miscellaneous Test Flexitest 1 H Crossmatch 10/07/16 10/07/16 10/07/16 10:00 11:24 18:10 WBC RBC Hgb Hct MCV MCH MCHC RDW Plt Count Lymph % (Auto) [place] % (Auto) Lymph # [place] # Baso # Seg Neutrophils % Seg Neuts % (Manual) Lymphocytes % (Manual) Monocytes % (Manual) Eosinophils % (Manual) Basophils % (Manual) Nucleated RBC % Seg Neutrophils # Seg Neutrophils # Man Lymphocytes # (Manual) Monocytes # (Manual) Eosinophils # (Manual) Basophils # (Manual) PT INR Fibrinogen dRVVT Confirm Interp Factor V Activity POC ABG pH POC ABG pCO2 POC ABG pO2 ABG pO2 ABG HCO3 ABG Base Excess ABG Hemoglobin Oxyhemoglobin Sodium Potassium Chloride Carbon Dioxide BUN Creatinine Glucose POC Glucose 116 H 130 H Lactic Acid Calcium Phosphorus Magnesium Direct Bilirubin AST ALT Alkaline Phosphatase Lactate Dehydrogenase Troponin T C-Reactive Protein 19.40 H Total Protein Albumin Prealbumin Triglycerides Cholesterol LDL Cholesterol Direct HDL Cholesterol PTH Intact Urine pH Urine WBC (Auto) Urine Creatinine Urine Total Protein Fluid Total Protein Vancomycin Trough Rheumatoid Factor Complement C4 Miscellaneous Test Crossmatch 10/07/16 10/08/16 10/08/16 18:30 00:00 04:00 WBC RBC Hgb Hct MCV MCH MCHC RDW Plt Count Lymph % (Auto) [place] % (Auto) Lymph # [place] # Baso # Seg Neutrophils % Seg Neuts % (Manual) Lymphocytes % (Manual) Monocytes % (Manual) Eosinophils % (Manual) Basophils % (Manual) Nucleated RBC % Seg Neutrophils # Seg Neutrophils # Man Lymphocytes # (Manual) Monocytes # (Manual) Eosinophils # (Manual) Basophils # (Manual) PT INR Fibrinogen dRVVT Confirm Interp Factor V Activity POC ABG pH POC ABG pCO2 POC ABG pO2 ABG pO2 ABG HCO3 ABG Base Excess ABG Hemoglobin Oxyhemoglobin Sodium 132 L Potassium 3.3 L Chloride 93.6 L Carbon Dioxide 17 L BUN 59 H Creatinine 2.7 H Glucose 121 H POC Glucose 122 H Lactic Acid Calcium 7.6 L Phosphorus Magnesium Direct Bilirubin AST ALT Alkaline Phosphatase Lactate Dehydrogenase Troponin T C-Reactive Protein Total Protein Albumin Prealbumin Triglycerides Cholesterol LDL Cholesterol Direct HDL Cholesterol PTH Intact Urine pH Urine WBC (Auto) > 182.0 H Urine Creatinine Urine Total Protein Fluid Total Protein Vancomycin Trough Rheumatoid Factor Complement C4 Miscellaneous Test Crossmatch 10/08/16 10/08/16 10/08/16 04:30 05:30 11:51 WBC RBC 5.15 H Hgb 14.4 H D Hct 44.5 H D MCV MCH MCHC RDW 19.5 H Plt Count 56 L Lymph % (Auto) [place] % (Auto) Lymph # [place] # Baso # Seg Neutrophils % Seg Neuts % (Manual) 24.0 L Lymphocytes % (Manual) 8.0 L Monocytes % (Manual) Eosinophils % (Manual) Basophils % (Manual) Nucleated RBC % 9.0 H Seg Neutrophils # Seg Neutrophils # Man Lymphocytes # (Manual) 0.7 L Monocytes # (Manual) Eosinophils # (Manual) Basophils # (Manual) PT INR Fibrinogen dRVVT Confirm Interp Factor V Activity POC ABG pH POC ABG pCO2 POC ABG pO2 ABG pO2 ABG HCO3 ABG Base Excess ABG Hemoglobin Oxyhemoglobin Sodium Potassium Chloride Carbon Dioxide BUN Creatinine Glucose POC Glucose 125 H 150 H Lactic Acid Calcium Phosphorus Magnesium Direct Bilirubin AST ALT Alkaline Phosphatase Lactate Dehydrogenase Troponin T C-Reactive Protein Total Protein Albumin Prealbumin Triglycerides Cholesterol LDL Cholesterol Direct HDL Cholesterol PTH Intact Urine pH Urine WBC (Auto) Urine Creatinine Urine Total Protein Fluid Total Protein Vancomycin Trough Rheumatoid Factor Complement C4 Miscellaneous Test Crossmatch 10/08/16 10/08/16 10/08/16 12:49 17:07 19:30 WBC RBC Hgb 7.1 L D Hct 22.4 L D MCV MCH MCHC RDW Plt Count Lymph % (Auto) [place] % (Auto) Lymph # [place] # Baso # Seg Neutrophils % Seg Neuts % (Manual) Lymphocytes % (Manual) Monocytes % (Manual) Eosinophils % (Manual) Basophils % (Manual) Nucleated RBC % Seg Neutrophils # Seg Neutrophils # Man Lymphocytes # (Manual) Monocytes # (Manual) Eosinophils # (Manual) Basophils # (Manual) PT INR Fibrinogen dRVVT Confirm Interp Factor V Activity POC ABG pH POC ABG pCO2 28.2 L POC ABG pO2 111 H ABG pO2 ABG HCO3 ABG Base Excess ABG Hemoglobin Oxyhemoglobin Sodium Potassium Chloride Carbon Dioxide BUN Creatinine Glucose POC Glucose 145 H Lactic Acid Calcium Phosphorus Magnesium Direct Bilirubin AST ALT Alkaline Phosphatase Lactate Dehydrogenase Troponin T C-Reactive Protein Total Protein Albumin Prealbumin Triglycerides Cholesterol LDL Cholesterol Direct HDL Cholesterol PTH Intact Urine pH Urine WBC (Auto) Urine Creatinine Urine Total Protein Fluid Total Protein Vancomycin Trough Rheumatoid Factor Complement C4 Miscellaneous Test Crossmatch 10/08/16 10/09/16 10/09/16 19:30 03:45 03:45 WBC 12.6 H RBC 2.36 L Hgb 6.7 L Hct 21.1 L MCV MCH MCHC RDW 19.5 H Plt Count 75 L Lymph % (Auto) [place] % (Auto) Lymph # [place] # Baso # Seg Neutrophils % Seg Neuts % (Manual) Lymphocytes % (Manual) Monocytes % (Manual) 10.0 H Eosinophils % (Manual) Basophils % (Manual) Nucleated RBC % 3.0 H Seg Neutrophils # Seg Neutrophils # Man Lymphocytes # (Manual) Monocytes # (Manual) 1.3 H Eosinophils # (Manual) Basophils # (Manual) PT 18.0 H INR 1.41 H Fibrinogen dRVVT Confirm Interp Factor V Activity POC ABG pH POC ABG pCO2 POC ABG pO2 ABG pO2 ABG HCO3 ABG Base Excess ABG Hemoglobin Oxyhemoglobin Sodium 135 L Potassium Chloride Carbon Dioxide 17 L BUN 81 H Creatinine 3.2 H Glucose 109 H POC Glucose Lactic Acid Calcium 7.4 L Phosphorus 4.60 H D Magnesium Direct Bilirubin AST ALT Alkaline Phosphatase Lactate Dehydrogenase Troponin T C-Reactive Protein Total Protein Albumin Prealbumin Triglycerides Cholesterol LDL Cholesterol Direct HDL Cholesterol PTH Intact Urine pH Urine WBC (Auto) Urine Creatinine Urine Total Protein Fluid Total Protein Vancomycin Trough Rheumatoid Factor Complement C4 Miscellaneous Test Crossmatch 10/09/16 10/09/16 10/09/16 03:45 05:14 07:20 WBC RBC Hgb Hct MCV MCH MCHC RDW Plt Count Lymph % (Auto) [place] % (Auto) Lymph # [place] # Baso # Seg Neutrophils % Seg Neuts % (Manual) Lymphocytes % (Manual) Monocytes % (Manual) Eosinophils % (Manual) Basophils % (Manual) Nucleated RBC % Seg Neutrophils # Seg Neutrophils # Man Lymphocytes # (Manual) Monocytes # (Manual) Eosinophils # (Manual) Basophils # (Manual) PT 19.0 H INR 1.51 H Fibrinogen dRVVT Confirm Interp Factor V Activity POC ABG pH POC ABG pCO2 POC ABG pO2 ABG pO2 ABG HCO3 ABG Base Excess ABG Hemoglobin Oxyhemoglobin Sodium Potassium Chloride Carbon Dioxide BUN Creatinine Glucose POC Glucose 151 H Lactic Acid Calcium Phosphorus Magnesium Direct Bilirubin AST ALT Alkaline Phosphatase Lactate Dehydrogenase Troponin T C-Reactive Protein Total Protein Albumin Prealbumin Triglycerides Cholesterol LDL Cholesterol Direct HDL Cholesterol PTH Intact Urine pH Urine WBC (Auto) Urine Creatinine Urine Total Protein Fluid Total Protein Vancomycin Trough Rheumatoid Factor Complement C4 Miscellaneous Test Crossmatch See Detail 10/09/16 10/09/16 10/09/16 11:46 16:20 16:43 WBC RBC Hgb 7.2 L Hct 22.2 L MCV MCH MCHC RDW Plt Count Lymph % (Auto) [place] % (Auto) Lymph # [place] # Baso # Seg Neutrophils % Seg Neuts % (Manual) Lymphocytes % (Manual) Monocytes % (Manual) Eosinophils % (Manual) Basophils % (Manual) Nucleated RBC % Seg Neutrophils # Seg Neutrophils # Man Lymphocytes # (Manual) Monocytes # (Manual) Eosinophils # (Manual) Basophils # (Manual) PT INR Fibrinogen dRVVT Confirm Interp Factor V Activity POC ABG pH POC ABG pCO2 POC ABG pO2 ABG pO2 ABG HCO3 ABG Base Excess ABG Hemoglobin Oxyhemoglobin Sodium Potassium Chloride Carbon Dioxide BUN Creatinine Glucose POC Glucose 133 H 141 H Lactic Acid Calcium Phosphorus Magnesium Direct Bilirubin AST ALT Alkaline Phosphatase Lactate Dehydrogenase Troponin T C-Reactive Protein Total Protein Albumin Prealbumin Triglycerides Cholesterol LDL Cholesterol Direct HDL Cholesterol PTH Intact Urine pH Urine WBC (Auto) Urine Creatinine Urine Total Protein Fluid Total Protein Vancomycin Trough Rheumatoid Factor Complement C4 Miscellaneous Test Crossmatch 10/10/16 10/10/16 10/10/16 05:00 05:00 11:19 WBC 18.5 H RBC 2.19 L Hgb 6.4 L Hct 19.6 L* MCV MCH MCHC RDW 19.3 H Plt Count 93 L Lymph % (Auto) [place] % (Auto) Lymph # [place] # Baso # Seg Neutrophils % Seg Neuts % (Manual) Lymphocytes % (Manual) 10.0 L Monocytes % (Manual) Eosinophils % (Manual) Basophils % (Manual) Nucleated RBC % 4.0 H Seg Neutrophils # Seg Neutrophils # Man 11.3 H Lymphocytes # (Manual) Monocytes # (Manual) Eosinophils # (Manual) Basophils # (Manual) PT INR Fibrinogen dRVVT Confirm Interp Factor V Activity POC ABG pH POC ABG pCO2 POC ABG pO2 ABG pO2 ABG HCO3 ABG Base Excess ABG Hemoglobin Oxyhemoglobin Sodium Potassium 5.7 H D Chloride Carbon Dioxide 16 L BUN 94 H Creatinine 3.1 H Glucose 131 H POC Glucose 153 H Lactic Acid Calcium 8.2 L Phosphorus 5.10 H Magnesium 2.40 H Direct Bilirubin 0.3 H AST ALT < 5 L Alkaline Phosphatase 319 H Lactate Dehydrogenase Troponin T C-Reactive Protein Total Protein 5.1 L Albumin 1.0 L Prealbumin Triglycerides Cholesterol LDL Cholesterol Direct HDL Cholesterol PTH Intact Urine pH Urine WBC (Auto) Urine Creatinine Urine Total Protein Fluid Total Protein Vancomycin Trough Rheumatoid Factor Complement C4 Miscellaneous Test Crossmatch 10/10/16 10/10/16 10/11/16 17:50 23:30 04:15 WBC RBC Hgb Hct MCV MCH MCHC RDW Plt Count Lymph % (Auto) [place] % (Auto) Lymph # [place] # Baso # Seg Neutrophils % Seg Neuts % (Manual) Lymphocytes % (Manual) Monocytes % (Manual) Eosinophils % (Manual) Basophils % (Manual) Nucleated RBC % Seg Neutrophils # Seg Neutrophils # Man Lymphocytes # (Manual) Monocytes # (Manual) Eosinophils # (Manual) Basophils # (Manual) PT INR Fibrinogen dRVVT Confirm Interp Factor V Activity POC ABG pH POC ABG pCO2 POC ABG pO2 ABG pO2 ABG HCO3 ABG Base Excess ABG Hemoglobin Oxyhemoglobin Sodium Potassium Chloride 96.4 L Carbon Dioxide 21 L BUN 57 H Creatinine 2.1 H Glucose 151 H POC Glucose 146 H 141 H Lactic Acid Calcium 8.3 L Phosphorus Magnesium Direct Bilirubin AST ALT Alkaline Phosphatase Lactate Dehydrogenase Troponin T C-Reactive Protein Total Protein Albumin Prealbumin Triglycerides Cholesterol LDL Cholesterol Direct HDL Cholesterol PTH Intact Urine pH Urine WBC (Auto) Urine Creatinine Urine Total Protein Fluid Total Protein Vancomycin Trough Rheumatoid Factor Complement C4 Miscellaneous Test Crossmatch 10/11/16 10/11/16 10/11/16 04:15 04:15 05:30 WBC 28.3 H RBC 3.12 L Hgb 9.3 L Hct 28.7 L D MCV MCH MCHC RDW 17.7 H Plt Count 128 L Lymph % (Auto) [place] % (Auto) Lymph # [place] # Baso # Seg Neutrophils % Seg Neuts % (Manual) Lymphocytes % (Manual) Monocytes % (Manual) Eosinophils % (Manual) Basophils % (Manual) Nucleated RBC % Seg Neutrophils # Seg Neutrophils # Man Lymphocytes # (Manual) Monocytes # (Manual) Eosinophils # (Manual) Basophils # (Manual) PT INR Fibrinogen dRVVT Confirm Interp Factor V Activity POC ABG pH POC ABG pCO2 POC ABG pO2 ABG pO2 ABG HCO3 ABG Base Excess ABG Hemoglobin Oxyhemoglobin Sodium Potassium Chloride Carbon Dioxide BUN Creatinine Glucose POC Glucose 167 H Lactic Acid Calcium Phosphorus Magnesium Direct Bilirubin AST ALT Alkaline Phosphatase Lactate Dehydrogenase Troponin T C-Reactive Protein 15.80 H Total Protein Albumin Prealbumin Triglycerides Cholesterol LDL Cholesterol Direct HDL Cholesterol PTH Intact Urine pH Urine WBC (Auto) Urine Creatinine Urine Total Protein Fluid Total Protein Vancomycin Trough Rheumatoid Factor Complement C4 Miscellaneous Test Crossmatch 10/11/16 10/11/16 10/11/16 11:40 15:49 23:57 WBC RBC Hgb Hct MCV MCH MCHC RDW Plt Count Lymph % (Auto) [place] % (Auto) Lymph # [place] # Baso # Seg Neutrophils % Seg Neuts % (Manual) Lymphocytes % (Manual) Monocytes % (Manual) Eosinophils % (Manual) Basophils % (Manual) Nucleated RBC % Seg Neutrophils # Seg Neutrophils # Man Lymphocytes # (Manual) Monocytes # (Manual) Eosinophils # (Manual) Basophils # (Manual) PT INR Fibrinogen dRVVT Confirm Interp Factor V Activity POC ABG pH POC ABG pCO2 POC ABG pO2 ABG pO2 ABG HCO3 ABG Base Excess ABG Hemoglobin Oxyhemoglobin Sodium Potassium Chloride Carbon Dioxide BUN Creatinine Glucose POC Glucose 139 H 168 H 161 H Lactic Acid Calcium Phosphorus Magnesium Direct Bilirubin AST ALT Alkaline Phosphatase Lactate Dehydrogenase Troponin T C-Reactive Protein Total Protein Albumin Prealbumin Triglycerides Cholesterol LDL Cholesterol Direct HDL Cholesterol PTH Intact Urine pH Urine WBC (Auto) Urine Creatinine Urine Total Protein Fluid Total Protein Vancomycin Trough Rheumatoid Factor Complement C4 Miscellaneous Test Crossmatch 10/12/16 10/12/16 10/12/16 04:40 04:40 05:44 WBC 22.5 H RBC 2.88 L Hgb 8.8 L Hct 26.8 L MCV MCH MCHC RDW 17.8 H Plt Count Lymph % (Auto) [place] % (Auto) Lymph # [place] # Baso # Seg Neutrophils % Seg Neuts % (Manual) Lymphocytes % (Manual) Monocytes % (Manual) Eosinophils % (Manual) Basophils % (Manual) Nucleated RBC % Seg Neutrophils # Seg Neutrophils # Man Lymphocytes # (Manual) Monocytes # (Manual) Eosinophils # (Manual) Basophils # (Manual) PT INR Fibrinogen dRVVT Confirm Interp Factor V Activity POC ABG pH POC ABG pCO2 POC ABG pO2 ABG pO2 ABG HCO3 ABG Base Excess ABG Hemoglobin Oxyhemoglobin Sodium 134 L Potassium Chloride 93.0 L Carbon Dioxide BUN 74 H Creatinine 2.5 H Glucose 137 H POC Glucose 158 H Lactic Acid Calcium 8.2 L Phosphorus Magnesium Direct Bilirubin AST ALT Alkaline Phosphatase Lactate Dehydrogenase Troponin T C-Reactive Protein Total Protein Albumin Prealbumin Triglycerides Cholesterol LDL Cholesterol Direct HDL Cholesterol PTH Intact Urine pH Urine WBC (Auto) Urine Creatinine Urine Total Protein Fluid Total Protein Vancomycin Trough Rheumatoid Factor Complement C4 Miscellaneous Test Crossmatch 10/12/16 10/12/16 10/12/16 12:27 18:18 23:46 WBC RBC Hgb Hct MCV MCH MCHC RDW Plt Count Lymph % (Auto) [place] % (Auto) Lymph # [place] # Baso # Seg Neutrophils % Seg Neuts % (Manual) Lymphocytes % (Manual) Monocytes % (Manual) Eosinophils % (Manual) Basophils % (Manual) Nucleated RBC % Seg Neutrophils # Seg Neutrophils # Man Lymphocytes # (Manual) Monocytes # (Manual) Eosinophils # (Manual) Basophils # (Manual) PT INR Fibrinogen dRVVT Confirm Interp Factor V Activity POC ABG pH POC ABG pCO2 POC ABG pO2 ABG pO2 ABG HCO3 ABG Base Excess ABG Hemoglobin Oxyhemoglobin Sodium Potassium Chloride Carbon Dioxide BUN Creatinine Glucose POC Glucose 153 H 140 H 150 H Lactic Acid Calcium Phosphorus Magnesium Direct Bilirubin AST ALT Alkaline Phosphatase Lactate Dehydrogenase Troponin T C-Reactive Protein Total Protein Albumin Prealbumin Triglycerides Cholesterol LDL Cholesterol Direct HDL Cholesterol PTH Intact Urine pH Urine WBC (Auto) Urine Creatinine Urine Total Protein Fluid Total Protein Vancomycin Trough Rheumatoid Factor Complement C4 Miscellaneous Test Crossmatch 10/13/16 10/13/16 10/13/16 06:22 09:20 12:29 WBC RBC Hgb Hct MCV MCH MCHC RDW Plt Count Lymph % (Auto) [place] % (Auto) Lymph # [place] # Baso # Seg Neutrophils % Seg Neuts % (Manual) Lymphocytes % (Manual) Monocytes % (Manual) Eosinophils % (Manual) Basophils % (Manual) Nucleated RBC % Seg Neutrophils # Seg Neutrophils # Man Lymphocytes # (Manual) Monocytes # (Manual) Eosinophils # (Manual) Basophils # (Manual) PT INR Fibrinogen dRVVT Confirm Interp Factor V Activity POC ABG pH POC ABG pCO2 POC ABG pO2 ABG pO2 ABG HCO3 ABG Base Excess ABG Hemoglobin Oxyhemoglobin Sodium Potassium Chloride Carbon Dioxide BUN Creatinine Glucose POC Glucose 165 H 193 H Lactic Acid Calcium Phosphorus Magnesium Direct Bilirubin AST ALT Alkaline Phosphatase Lactate Dehydrogenase Troponin T C-Reactive Protein Total Protein Albumin Prealbumin Triglycerides Cholesterol LDL Cholesterol Direct HDL Cholesterol PTH Intact Urine pH Urine WBC (Auto) Urine Creatinine Urine Total Protein Fluid Total Protein Vancomycin Trough Rheumatoid Factor Complement C4 Miscellaneous Test Flexitest 1 H Crossmatch 10/13/16 10/13/16 10/13/16 18:09 Unknown Unknown WBC 23.4 H RBC 2.83 L Hgb 8.7 L Hct 26.1 L MCV MCH MCHC RDW 18.1 H Plt Count Lymph % (Auto) [place] % (Auto) Lymph # [place] # Baso # Seg Neutrophils % Seg Neuts % (Manual) Lymphocytes % (Manual) Monocytes % (Manual) Eosinophils % (Manual) Basophils % (Manual) Nucleated RBC % Seg Neutrophils # Seg Neutrophils # Man Lymphocytes # (Manual) Monocytes # (Manual) Eosinophils # (Manual) Basophils # (Manual) PT INR Fibrinogen dRVVT Confirm Interp Factor V Activity POC ABG pH POC ABG pCO2 POC ABG pO2 ABG pO2 ABG HCO3 ABG Base Excess ABG Hemoglobin Oxyhemoglobin Sodium Potassium Chloride 95.8 L Carbon Dioxide BUN 82 H Creatinine 2.6 H Glucose 152 H POC Glucose 166 H Lactic Acid Calcium Phosphorus Magnesium Direct Bilirubin AST ALT Alkaline Phosphatase Lactate Dehydrogenase Troponin T C-Reactive Protein Total Protein Albumin Prealbumin Triglycerides Cholesterol LDL Cholesterol Direct HDL Cholesterol PTH Intact Urine pH Urine WBC (Auto) Urine Creatinine Urine Total Protein Fluid Total Protein Vancomycin Trough Rheumatoid Factor Complement C4 Miscellaneous Test Crossmatch 10/14/16 10/14/16 10/14/16 05:38 06:35 08:10 WBC 20.7 H RBC 2.81 L Hgb 8.4 L Hct 27.2 L MCV MCH MCHC RDW 19.4 H Plt Count Lymph % (Auto) [place] % (Auto) Lymph # [place] # Baso # Seg Neutrophils % Seg Neuts % (Manual) Lymphocytes % (Manual) Monocytes % (Manual) Eosinophils % (Manual) Basophils % (Manual) Nucleated RBC % Seg Neutrophils # Seg Neutrophils # Man Lymphocytes # (Manual) Monocytes # (Manual) Eosinophils # (Manual) Basophils # (Manual) PT INR Fibrinogen dRVVT Confirm Interp Factor V Activity POC ABG pH POC ABG pCO2 POC ABG pO2 ABG pO2 ABG HCO3 ABG Base Excess ABG Hemoglobin Oxyhemoglobin Sodium Potassium Chloride Carbon Dioxide BUN 58 H Creatinine 1.9 H Glucose 169 H POC Glucose 195 H Lactic Acid Calcium Phosphorus Magnesium Direct Bilirubin AST ALT Alkaline Phosphatase Lactate Dehydrogenase Troponin T C-Reactive Protein Total Protein Albumin Prealbumin Triglycerides Cholesterol LDL Cholesterol Direct HDL Cholesterol PTH Intact Urine pH Urine WBC (Auto) Urine Creatinine Urine Total Protein Fluid Total Protein Vancomycin Trough Rheumatoid Factor Complement C4 Miscellaneous Test Crossmatch 10/14/16 10/14/16 10/14/16 11:44 17:13 23:28 WBC RBC Hgb Hct MCV MCH MCHC RDW Plt Count Lymph % (Auto) [place] % (Auto) Lymph # [place] # Baso # Seg Neutrophils % Seg Neuts % (Manual) Lymphocytes % (Manual) Monocytes % (Manual) Eosinophils % (Manual) Basophils % (Manual) Nucleated RBC % Seg Neutrophils # Seg Neutrophils # Man Lymphocytes # (Manual) Monocytes # (Manual) Eosinophils # (Manual) Basophils # (Manual) PT INR Fibrinogen dRVVT Confirm Interp Factor V Activity POC ABG pH POC ABG pCO2 POC ABG pO2 ABG pO2 ABG HCO3 ABG Base Excess ABG Hemoglobin Oxyhemoglobin Sodium Potassium Chloride Carbon Dioxide BUN Creatinine Glucose POC Glucose 174 H 121 H 151 H Lactic Acid Calcium Phosphorus Magnesium Direct Bilirubin AST ALT Alkaline Phosphatase Lactate Dehydrogenase Troponin T C-Reactive Protein Total Protein Albumin Prealbumin Triglycerides Cholesterol LDL Cholesterol Direct HDL Cholesterol PTH Intact Urine pH Urine WBC (Auto) Urine Creatinine Urine Total Protein Fluid Total Protein Vancomycin Trough Rheumatoid Factor Complement C4 Miscellaneous Test Crossmatch 10/15/16 10/15/16 10/15/16 05:06 12:26 17:48 WBC RBC Hgb Hct MCV MCH MCHC RDW Plt Count Lymph % (Auto) [place] % (Auto) Lymph # [place] # Baso # Seg Neutrophils % Seg Neuts % (Manual) Lymphocytes % (Manual) Monocytes % (Manual) Eosinophils % (Manual) Basophils % (Manual) Nucleated RBC % Seg Neutrophils # Seg Neutrophils # Man Lymphocytes # (Manual) Monocytes # (Manual) Eosinophils # (Manual) Basophils # (Manual) PT INR Fibrinogen dRVVT Confirm Interp Factor V Activity POC ABG pH POC ABG pCO2 POC ABG pO2 ABG pO2 ABG HCO3 ABG Base Excess ABG Hemoglobin Oxyhemoglobin Sodium Potassium Chloride Carbon Dioxide BUN Creatinine Glucose POC Glucose 151 H 149 H 153 H Lactic Acid Calcium Phosphorus Magnesium Direct Bilirubin AST ALT Alkaline Phosphatase Lactate Dehydrogenase Troponin T C-Reactive Protein Total Protein Albumin Prealbumin Triglycerides Cholesterol LDL Cholesterol Direct HDL Cholesterol PTH Intact Urine pH Urine WBC (Auto) Urine Creatinine Urine Total Protein Fluid Total Protein Vancomycin Trough Rheumatoid Factor Complement C4 Miscellaneous Test Crossmatch 10/15/16 10/15/16 10/16/16 Unknown Unknown 00:02 WBC 23.4 H RBC 2.78 L Hgb 8.5 L Hct 25.7 L MCV MCH MCHC RDW 18.7 H Plt Count Lymph % (Auto) [place] % (Auto) Lymph # [place] # Baso # Seg Neutrophils % Seg Neuts % (Manual) Lymphocytes % (Manual) Monocytes % (Manual) Eosinophils % (Manual) Basophils % (Manual) Nucleated RBC % Seg Neutrophils # Seg Neutrophils # Man Lymphocytes # (Manual) Monocytes # (Manual) Eosinophils # (Manual) Basophils # (Manual) PT INR Fibrinogen dRVVT Confirm Interp Factor V Activity POC ABG pH POC ABG pCO2 POC ABG pO2 ABG pO2 ABG HCO3 ABG Base Excess ABG Hemoglobin Oxyhemoglobin Sodium Potassium Chloride Carbon Dioxide BUN 73 H Creatinine 2.3 H Glucose 120 H POC Glucose 137 H Lactic Acid Calcium Phosphorus Magnesium Direct Bilirubin AST ALT Alkaline Phosphatase Lactate Dehydrogenase Troponin T C-Reactive Protein Total Protein Albumin Prealbumin Triglycerides Cholesterol LDL Cholesterol Direct HDL Cholesterol PTH Intact Urine pH Urine WBC (Auto) Urine Creatinine Urine Total Protein Fluid Total Protein Vancomycin Trough Rheumatoid Factor Complement C4 Miscellaneous Test Crossmatch 10/16/16 10/16/16 10/16/16 05:44 06:25 06:25 WBC 22.5 H RBC 2.76 L Hgb 8.3 L Hct 25.2 L MCV MCH MCHC RDW 18.3 H Plt Count Lymph % (Auto) [place] % (Auto) Lymph # [place] # Baso # Seg Neutrophils % Seg Neuts % (Manual) Lymphocytes % (Manual) Monocytes % (Manual) Eosinophils % (Manual) Basophils % (Manual) Nucleated RBC % Seg Neutrophils # Seg Neutrophils # Man Lymphocytes # (Manual) Monocytes # (Manual) Eosinophils # (Manual) Basophils # (Manual) PT INR Fibrinogen dRVVT Confirm Interp Factor V Activity POC ABG pH POC ABG pCO2 POC ABG pO2 ABG pO2 ABG HCO3 ABG Base Excess ABG Hemoglobin Oxyhemoglobin Sodium Potassium Chloride Carbon Dioxide BUN 92 H Creatinine 3.0 H Glucose 138 H POC Glucose 110 H Lactic Acid Calcium Phosphorus Magnesium Direct Bilirubin AST ALT Alkaline Phosphatase Lactate Dehydrogenase Troponin T C-Reactive Protein Total Protein Albumin Prealbumin Triglycerides Cholesterol LDL Cholesterol Direct HDL Cholesterol PTH Intact Urine pH Urine WBC (Auto) Urine Creatinine Urine Total Protein Fluid Total Protein Vancomycin Trough Rheumatoid Factor Complement C4 Miscellaneous Test Crossmatch 10/16/16 10/16/16 10/16/16 11:27 11:48 17:36 WBC RBC Hgb Hct MCV MCH MCHC RDW Plt Count Lymph % (Auto) [place] % (Auto) Lymph # [place] # Baso # Seg Neutrophils % Seg Neuts % (Manual) Lymphocytes % (Manual) Monocytes % (Manual) Eosinophils % (Manual) Basophils % (Manual) Nucleated RBC % Seg Neutrophils # Seg Neutrophils # Man Lymphocytes # (Manual) Monocytes # (Manual) Eosinophils # (Manual) Basophils # (Manual) PT INR Fibrinogen dRVVT Confirm Interp Factor V Activity POC ABG pH 7.582 H POC ABG pCO2 27.4 L POC ABG pO2 110 H ABG pO2 ABG HCO3 ABG Base Excess ABG Hemoglobin Oxyhemoglobin Sodium Potassium Chloride Carbon Dioxide BUN Creatinine Glucose POC Glucose 121 H 133 H Lactic Acid Calcium Phosphorus Magnesium Direct Bilirubin AST ALT Alkaline Phosphatase Lactate Dehydrogenase Troponin T C-Reactive Protein Total Protein Albumin Prealbumin Triglycerides Cholesterol LDL Cholesterol Direct HDL Cholesterol PTH Intact Urine pH Urine WBC (Auto) Urine Creatinine Urine Total Protein Fluid Total Protein Vancomycin Trough Rheumatoid Factor Complement C4 Miscellaneous Test Crossmatch 10/16/16 10/17/16 10/17/16 20:48 04:24 04:24 WBC 21.4 H RBC 2.72 L Hgb 8.0 L Hct 25.2 L MCV MCH MCHC RDW 18.0 H Plt Count Lymph % (Auto) [place] % (Auto) Lymph # [place] # Baso # Seg Neutrophils % Seg Neuts % (Manual) Lymphocytes % (Manual) Monocytes % (Manual) Eosinophils % (Manual) Basophils % (Manual) Nucleated RBC % Seg Neutrophils # Seg Neutrophils # Man Lymphocytes # (Manual) Monocytes # (Manual) Eosinophils # (Manual) Basophils # (Manual) PT INR Fibrinogen dRVVT Confirm Interp Factor V Activity POC ABG pH 7.561 H POC ABG pCO2 24.4 L POC ABG pO2 77 L ABG pO2 ABG HCO3 ABG Base Excess ABG Hemoglobin Oxyhemoglobin Sodium 148 H Potassium Chloride Carbon Dioxide BUN 104 H Creatinine 3.0 H Glucose 149 H POC Glucose Lactic Acid Calcium Phosphorus Magnesium Direct Bilirubin AST ALT Alkaline Phosphatase 138 H Lactate Dehydrogenase Troponin T C-Reactive Protein Total Protein 6.2 L Albumin 1.5 L Prealbumin Triglycerides Cholesterol LDL Cholesterol Direct HDL Cholesterol PTH Intact Urine pH Urine WBC (Auto) Urine Creatinine Urine Total Protein Fluid Total Protein Vancomycin Trough Rheumatoid Factor Complement C4 Miscellaneous Test Crossmatch 10/17/16 10/17/16 10/17/16 06:02 12:17 17:14 WBC RBC Hgb Hct MCV MCH MCHC RDW Plt Count Lymph % (Auto) [place] % (Auto) Lymph # [place] # Baso # Seg Neutrophils % Seg Neuts % (Manual) Lymphocytes % (Manual) Monocytes % (Manual) Eosinophils % (Manual) Basophils % (Manual) Nucleated RBC % Seg Neutrophils # Seg Neutrophils # Man Lymphocytes # (Manual) Monocytes # (Manual) Eosinophils # (Manual) Basophils # (Manual) PT INR Fibrinogen dRVVT Confirm Interp Factor V Activity POC ABG pH POC ABG pCO2 POC ABG pO2 ABG pO2 ABG HCO3 ABG Base Excess ABG Hemoglobin Oxyhemoglobin Sodium Potassium Chloride Carbon Dioxide BUN Creatinine Glucose POC Glucose 170 H 167 H 126 H Lactic Acid Calcium Phosphorus Magnesium Direct Bilirubin AST ALT Alkaline Phosphatase Lactate Dehydrogenase Troponin T C-Reactive Protein Total Protein Albumin Prealbumin Triglycerides Cholesterol LDL Cholesterol Direct HDL Cholesterol PTH Intact Urine pH Urine WBC (Auto) Urine Creatinine Urine Total Protein Fluid Total Protein Vancomycin Trough Rheumatoid Factor Complement C4 Miscellaneous Test Crossmatch 10/17/16 10/18/16 10/18/16 23:17 04:00 04:00 WBC 20.7 H RBC 2.47 L Hgb 7.4 L Hct 22.9 L MCV MCH MCHC RDW 17.5 H Plt Count Lymph % (Auto) [place] % (Auto) Lymph # [place] # Baso # Seg Neutrophils % Seg Neuts % (Manual) Lymphocytes % (Manual) Monocytes % (Manual) Eosinophils % (Manual) Basophils % (Manual) Nucleated RBC % Seg Neutrophils # Seg Neutrophils # Man Lymphocytes # (Manual) Monocytes # (Manual) Eosinophils # (Manual) Basophils # (Manual) PT INR Fibrinogen dRVVT Confirm Interp Factor V Activity POC ABG pH POC ABG pCO2 POC ABG pO2 ABG pO2 ABG HCO3 ABG Base Excess ABG Hemoglobin Oxyhemoglobin Sodium 149 H Potassium Chloride 107.9 H Carbon Dioxide 20 L BUN 117 H Creatinine 3.2 H Glucose 119 H POC Glucose 121 H Lactic Acid Calcium Phosphorus Magnesium Direct Bilirubin AST ALT Alkaline Phosphatase Lactate Dehydrogenase Troponin T C-Reactive Protein Total Protein Albumin Prealbumin Triglycerides Cholesterol LDL Cholesterol Direct HDL Cholesterol PTH Intact Urine pH Urine WBC (Auto) Urine Creatinine Urine Total Protein Fluid Total Protein Vancomycin Trough Rheumatoid Factor Complement C4 Miscellaneous Test Crossmatch 10/18/16 10/18/16 10/18/16 05:23 10:46 17:30 WBC RBC Hgb Hct MCV MCH MCHC RDW Plt Count Lymph % (Auto) [place] % (Auto) Lymph # [place] # Baso # Seg Neutrophils % Seg Neuts % (Manual) Lymphocytes % (Manual) Monocytes % (Manual) Eosinophils % (Manual) Basophils % (Manual) Nucleated RBC % Seg Neutrophils # Seg Neutrophils # Man Lymphocytes # (Manual) Monocytes # (Manual) Eosinophils # (Manual) Basophils # (Manual) PT INR Fibrinogen dRVVT Confirm Interp Factor V Activity POC ABG pH POC ABG pCO2 POC ABG pO2 ABG pO2 ABG HCO3 ABG Base Excess ABG Hemoglobin Oxyhemoglobin Sodium Potassium Chloride Carbon Dioxide BUN Creatinine Glucose POC Glucose 119 H 155 H 124 H Lactic Acid Calcium Phosphorus Magnesium Direct Bilirubin AST ALT Alkaline Phosphatase Lactate Dehydrogenase Troponin T C-Reactive Protein Total Protein Albumin Prealbumin Triglycerides Cholesterol LDL Cholesterol Direct HDL Cholesterol PTH Intact Urine pH Urine WBC (Auto) Urine Creatinine Urine Total Protein Fluid Total Protein Vancomycin Trough Rheumatoid Factor Complement C4 Miscellaneous Test Crossmatch 10/19/16 10/19/16 10/19/16 04:00 04:00 05:25 WBC 17.4 H RBC 2.54 L Hgb 7.7 L Hct 23.6 L MCV MCH MCHC RDW 17.3 H Plt Count Lymph % (Auto) [place] % (Auto) Lymph # [place] # Baso # Seg Neutrophils % Seg Neuts % (Manual) Lymphocytes % (Manual) Monocytes % (Manual) Eosinophils % (Manual) Basophils % (Manual) Nucleated RBC % Seg Neutrophils # Seg Neutrophils # Man Lymphocytes # (Manual) Monocytes # (Manual) Eosinophils # (Manual) Basophils # (Manual) PT INR Fibrinogen dRVVT Confirm Interp Factor V Activity POC ABG pH POC ABG pCO2 POC ABG pO2 ABG pO2 ABG HCO3 ABG Base Excess ABG Hemoglobin Oxyhemoglobin Sodium Potassium Chloride Carbon Dioxide BUN 72 H Creatinine 2.1 H Glucose 116 H POC Glucose 119 H Lactic Acid Calcium Phosphorus Magnesium Direct Bilirubin AST ALT Alkaline Phosphatase Lactate Dehydrogenase Troponin T C-Reactive Protein Total Protein Albumin Prealbumin Triglycerides Cholesterol LDL Cholesterol Direct HDL Cholesterol PTH Intact Urine pH Urine WBC (Auto) Urine Creatinine Urine Total Protein Fluid Total Protein Vancomycin Trough Rheumatoid Factor Complement C4 Miscellaneous Test Crossmatch 10/19/16 10/19/16 10/20/16 11:46 23:59 06:00 WBC RBC Hgb Hct MCV MCH MCHC RDW Plt Count Lymph % (Auto) [place] % (Auto) Lymph # [place] # Baso # Seg Neutrophils % Seg Neuts % (Manual) Lymphocytes % (Manual) Monocytes % (Manual) Eosinophils % (Manual) Basophils % (Manual) Nucleated RBC % Seg Neutrophils # Seg Neutrophils # Man Lymphocytes # (Manual) Monocytes # (Manual) Eosinophils # (Manual) Basophils # (Manual) PT INR Fibrinogen dRVVT Confirm Interp Factor V Activity POC ABG pH POC ABG pCO2 POC ABG pO2 ABG pO2 ABG HCO3 ABG Base Excess ABG Hemoglobin Oxyhemoglobin Sodium Potassium Chloride Carbon Dioxide 17 L BUN 94 H Creatinine 2.7 H Glucose POC Glucose 116 H 117 H Lactic Acid Calcium Phosphorus Magnesium Direct Bilirubin AST ALT Alkaline Phosphatase Lactate Dehydrogenase Troponin T C-Reactive Protein Total Protein Albumin Prealbumin Triglycerides Cholesterol LDL Cholesterol Direct HDL Cholesterol PTH Intact Urine pH Urine WBC (Auto) Urine Creatinine Urine Total Protein Fluid Total Protein Vancomycin Trough Rheumatoid Factor Complement C4 Miscellaneous Test Crossmatch 10/20/16 10/20/16 10/20/16 06:00 11:49 16:00 WBC 19.7 H RBC 2.51 L Hgb 7.7 L Hct 23.5 L MCV MCH MCHC RDW 17.5 H Plt Count Lymph % (Auto) [place] % (Auto) Lymph # [place] # Baso # Seg Neutrophils % Seg Neuts % (Manual) Lymphocytes % (Manual) Monocytes % (Manual) Eosinophils % (Manual) Basophils % (Manual) Nucleated RBC % Seg Neutrophils # Seg Neutrophils # Man Lymphocytes # (Manual) Monocytes # (Manual) Eosinophils # (Manual) Basophils # (Manual) PT INR Fibrinogen dRVVT Confirm Interp Factor V Activity POC ABG pH POC ABG pCO2 POC ABG pO2 ABG pO2 ABG HCO3 ABG Base Excess ABG Hemoglobin Oxyhemoglobin Sodium Potassium Chloride Carbon Dioxide BUN Creatinine Glucose POC Glucose 117 H Lactic Acid Calcium Phosphorus Magnesium Direct Bilirubin AST ALT Alkaline Phosphatase Lactate Dehydrogenase Troponin T C-Reactive Protein Total Protein Albumin Prealbumin Triglycerides Cholesterol LDL Cholesterol Direct HDL Cholesterol PTH Intact Urine pH Urine WBC (Auto) Urine Creatinine Urine Total Protein Fluid Total Protein Vancomycin Trough Rheumatoid Factor Complement C4 Miscellaneous Test Flexitest 1 H Crossmatch 10/20/16 10/20/16 10/21/16 18:36 23:39 04:00 WBC RBC Hgb Hct MCV MCH MCHC RDW Plt Count Lymph % (Auto) [place] % (Auto) Lymph # [place] # Baso # Seg Neutrophils % Seg Neuts % (Manual) Lymphocytes % (Manual) Monocytes % (Manual) Eosinophils % (Manual) Basophils % (Manual) Nucleated RBC % Seg Neutrophils # Seg Neutrophils # Man Lymphocytes # (Manual) Monocytes # (Manual) Eosinophils # (Manual) Basophils # (Manual) PT INR Fibrinogen dRVVT Confirm Interp Factor V Activity POC ABG pH POC ABG pCO2 POC ABG pO2 ABG pO2 ABG HCO3 ABG Base Excess ABG Hemoglobin Oxyhemoglobin Sodium Potassium 5.4 H D Chloride Carbon Dioxide 15 L BUN 110 H Creatinine 3.0 H Glucose POC Glucose 127 H 114 H Lactic Acid Calcium Phosphorus Magnesium Direct Bilirubin AST ALT Alkaline Phosphatase Lactate Dehydrogenase Troponin T C-Reactive Protein Total Protein Albumin Prealbumin Triglycerides Cholesterol LDL Cholesterol Direct HDL Cholesterol PTH Intact Urine pH Urine WBC (Auto) Urine Creatinine Urine Total Protein Fluid Total Protein Vancomycin Trough Rheumatoid Factor Complement C4 Miscellaneous Test Crossmatch 10/21/16 10/21/16 10/22/16 05:54 23:46 05:18 WBC RBC Hgb Hct MCV MCH MCHC RDW Plt Count Lymph % (Auto) [place] % (Auto) Lymph # [place] # Baso # Seg Neutrophils % Seg Neuts % (Manual) Lymphocytes % (Manual) Monocytes % (Manual) Eosinophils % (Manual) Basophils % (Manual) Nucleated RBC % Seg Neutrophils # Seg Neutrophils # Man Lymphocytes # (Manual) Monocytes # (Manual) Eosinophils # (Manual) Basophils # (Manual) PT INR Fibrinogen dRVVT Confirm Interp Factor V Activity POC ABG pH POC ABG pCO2 POC ABG pO2 ABG pO2 ABG HCO3 ABG Base Excess ABG Hemoglobin Oxyhemoglobin Sodium Potassium Chloride Carbon Dioxide BUN Creatinine Glucose POC Glucose 119 H 108 H 109 H Lactic Acid Calcium Phosphorus Magnesium Direct Bilirubin AST ALT Alkaline Phosphatase Lactate Dehydrogenase Troponin T C-Reactive Protein Total Protein Albumin Prealbumin Triglycerides Cholesterol LDL Cholesterol Direct HDL Cholesterol PTH Intact Urine pH Urine WBC (Auto) Urine Creatinine Urine Total Protein Fluid Total Protein Vancomycin Trough Rheumatoid Factor Complement C4 Miscellaneous Test Crossmatch 10/22/16 10/22/16 10/22/16 06:40 06:40 06:40 WBC 14.0 H RBC 2.03 L Hgb 7.0 L Hct 20.5 L MCV 98 H MCH 34 H MCHC 35 H RDW 17.8 H Plt Count Lymph % (Auto) [place] % (Auto) 9.9 H Lymph # [place] # 1.4 H Baso # 0.2 H Seg Neutrophils % 72.0 H Seg Neuts % (Manual) Lymphocytes % (Manual) Monocytes % (Manual) Eosinophils % (Manual) Basophils % (Manual) Nucleated RBC % Seg Neutrophils # 10.0 H Seg Neutrophils # Man Lymphocytes # (Manual) Monocytes # (Manual) Eosinophils # (Manual) Basophils # (Manual) PT INR Fibrinogen dRVVT Confirm Interp Factor V Activity POC ABG pH POC ABG pCO2 POC ABG pO2 ABG pO2 ABG HCO3 ABG Base Excess ABG Hemoglobin Oxyhemoglobin Sodium 130 L D Potassium Chloride 92.4 L Carbon Dioxide 20 L BUN 50 H Creatinine 1.6 H Glucose 589 H* POC Glucose Lactic Acid Calcium 7.8 L D Phosphorus Magnesium 1.60 L Direct Bilirubin AST ALT Alkaline Phosphatase Lactate Dehydrogenase Troponin T C-Reactive Protein Total Protein Albumin Prealbumin Triglycerides Cholesterol LDL Cholesterol Direct HDL Cholesterol PTH Intact Urine pH Urine WBC (Auto) Urine Creatinine Urine Total Protein Fluid Total Protein Vancomycin Trough Rheumatoid Factor Complement C4 Miscellaneous Test Crossmatch 10/22/16 10/22/16 10/22/16 11:39 16:44 23:36 WBC RBC Hgb Hct MCV MCH MCHC RDW Plt Count Lymph % (Auto) [place] % (Auto) Lymph # [place] # Baso # Seg Neutrophils % Seg Neuts % (Manual) Lymphocytes % (Manual) Monocytes % (Manual) Eosinophils % (Manual) Basophils % (Manual) Nucleated RBC % Seg Neutrophils # Seg Neutrophils # Man Lymphocytes # (Manual) Monocytes # (Manual) Eosinophils # (Manual) Basophils # (Manual) PT INR Fibrinogen dRVVT Confirm Interp Factor V Activity POC ABG pH POC ABG pCO2 POC ABG pO2 ABG pO2 ABG HCO3 ABG Base Excess ABG Hemoglobin Oxyhemoglobin Sodium Potassium Chloride Carbon Dioxide BUN Creatinine Glucose POC Glucose 142 H 163 H 123 H Lactic Acid Calcium Phosphorus Magnesium Direct Bilirubin AST ALT Alkaline Phosphatase Lactate Dehydrogenase Troponin T C-Reactive Protein Total Protein Albumin Prealbumin Triglycerides Cholesterol LDL Cholesterol Direct HDL Cholesterol PTH Intact Urine pH Urine WBC (Auto) Urine Creatinine Urine Total Protein Fluid Total Protein Vancomycin Trough Rheumatoid Factor Complement C4 Miscellaneous Test Crossmatch 10/23/16 10/23/16 10/23/16 04:58 06:00 12:12 WBC RBC Hgb Hct MCV MCH MCHC RDW Plt Count Lymph % (Auto) [place] % (Auto) Lymph # [place] # Baso # Seg Neutrophils % Seg Neuts % (Manual) Lymphocytes % (Manual) Monocytes % (Manual) Eosinophils % (Manual) Basophils % (Manual) Nucleated RBC % Seg Neutrophils # Seg Neutrophils # Man Lymphocytes # (Manual) Monocytes # (Manual) Eosinophils # (Manual) Basophils # (Manual) PT INR Fibrinogen dRVVT Confirm Interp Factor V Activity POC ABG pH POC ABG pCO2 POC ABG pO2 ABG pO2 ABG HCO3 ABG Base Excess ABG Hemoglobin Oxyhemoglobin Sodium 133 L Potassium 3.5 L Chloride 96.1 L Carbon Dioxide 18 L BUN 76 H Creatinine 2.1 H Glucose POC Glucose 133 H 138 H Lactic Acid Calcium 8.3 L Phosphorus Magnesium Direct Bilirubin AST ALT Alkaline Phosphatase Lactate Dehydrogenase Troponin T C-Reactive Protein Total Protein Albumin Prealbumin Triglycerides Cholesterol LDL Cholesterol Direct HDL Cholesterol PTH Intact Urine pH Urine WBC (Auto) Urine Creatinine Urine Total Protein Fluid Total Protein Vancomycin Trough Rheumatoid Factor Complement C4 Miscellaneous Test Crossmatch 10/23/16 10/23/16 10/24/16 16:53 23:37 04:00 WBC RBC Hgb Hct MCV MCH MCHC RDW Plt Count Lymph % (Auto) [place] % (Auto) Lymph # [place] # Baso # Seg Neutrophils % Seg Neuts % (Manual) Lymphocytes % (Manual) Monocytes % (Manual) Eosinophils % (Manual) Basophils % (Manual) Nucleated RBC % Seg Neutrophils # Seg Neutrophils # Man Lymphocytes # (Manual) Monocytes # (Manual) Eosinophils # (Manual) Basophils # (Manual) PT INR Fibrinogen dRVVT Confirm Interp Factor V Activity POC ABG pH POC ABG pCO2 POC ABG pO2 ABG pO2 ABG HCO3 ABG Base Excess ABG Hemoglobin Oxyhemoglobin Sodium 131 L Potassium Chloride 94.5 L Carbon Dioxide 19 L BUN 97 H Creatinine 2.6 H Glucose 110 H POC Glucose 125 H 123 H Lactic Acid Calcium 8.3 L Phosphorus Magnesium Direct Bilirubin AST ALT Alkaline Phosphatase Lactate Dehydrogenase Troponin T C-Reactive Protein Total Protein Albumin Prealbumin Triglycerides Cholesterol LDL Cholesterol Direct HDL Cholesterol PTH Intact Urine pH Urine WBC (Auto) Urine Creatinine Urine Total Protein Fluid Total Protein Vancomycin Trough Rheumatoid Factor Complement C4 Miscellaneous Test Crossmatch 10/24/16 10/24/16 10/24/16 07:49 11:39 17:52 WBC RBC Hgb 6.0 L Hct 19.7 L* MCV MCH MCHC RDW Plt Count Lymph % (Auto) [place] % (Auto) Lymph # [place] # Baso # Seg Neutrophils % Seg Neuts % (Manual) Lymphocytes % (Manual) Monocytes % (Manual) Eosinophils % (Manual) Basophils % (Manual) Nucleated RBC % Seg Neutrophils # Seg Neutrophils # Man Lymphocytes # (Manual) Monocytes # (Manual) Eosinophils # (Manual) Basophils # (Manual) PT INR Fibrinogen dRVVT Confirm Interp Factor V Activity POC ABG pH POC ABG pCO2 POC ABG pO2 ABG pO2 ABG HCO3 ABG Base Excess ABG Hemoglobin Oxyhemoglobin Sodium Potassium Chloride Carbon Dioxide BUN Creatinine Glucose POC Glucose 106 H 158 H Lactic Acid Calcium Phosphorus Magnesium Direct Bilirubin AST ALT Alkaline Phosphatase Lactate Dehydrogenase Troponin T C-Reactive Protein Total Protein Albumin Prealbumin Triglycerides Cholesterol LDL Cholesterol Direct HDL Cholesterol PTH Intact Urine pH Urine WBC (Auto) Urine Creatinine Urine Total Protein Fluid Total Protein Vancomycin Trough Rheumatoid Factor Complement C4 Miscellaneous Test Crossmatch 10/24/16 10/24/16 10/24/16 20:00 22:27 Unknown WBC RBC Hgb 9.4 L D Hct 27.5 L D MCV MCH MCHC RDW Plt Count Lymph % (Auto) [place] % (Auto) Lymph # [place] # Baso # Seg Neutrophils % Seg Neuts % (Manual) Lymphocytes % (Manual) Monocytes % (Manual) Eosinophils % (Manual) Basophils % (Manual) Nucleated RBC % Seg Neutrophils # Seg Neutrophils # Man Lymphocytes # (Manual) Monocytes # (Manual) Eosinophils # (Manual) Basophils # (Manual) PT INR Fibrinogen dRVVT Confirm Interp Factor V Activity POC ABG pH POC ABG pCO2 POC ABG pO2 ABG pO2 ABG HCO3 ABG Base Excess ABG Hemoglobin Oxyhemoglobin Sodium Potassium Chloride Carbon Dioxide BUN Creatinine Glucose POC Glucose 125 H Lactic Acid Calcium Phosphorus Magnesium Direct Bilirubin AST ALT Alkaline Phosphatase Lactate Dehydrogenase Troponin T C-Reactive Protein Total Protein Albumin Prealbumin Triglycerides Cholesterol LDL Cholesterol Direct HDL Cholesterol PTH Intact Urine pH Urine WBC (Auto) Urine Creatinine Urine Total Protein Fluid Total Protein Vancomycin Trough Rheumatoid Factor Complement C4 Miscellaneous Test Crossmatch See Detail 10/25/16 10/25/16 10/25/16 04:00 04:00 04:00 WBC 14.2 H RBC 2.98 L Hgb 9.0 L Hct 26.2 L MCV MCH MCHC RDW 16.6 H Plt Count Lymph % (Auto) [place] % (Auto) 10.7 H Lymph # [place] # 1.5 H Baso # Seg Neutrophils % 73.6 H Seg Neuts % (Manual) Lymphocytes % (Manual) Monocytes % (Manual) Eosinophils % (Manual) Basophils % (Manual) Nucleated RBC % Seg Neutrophils # 10.5 H Seg Neutrophils # Man Lymphocytes # (Manual) Monocytes # (Manual) Eosinophils # (Manual) Basophils # (Manual) PT INR Fibrinogen dRVVT Confirm Interp Factor V Activity POC ABG pH POC ABG pCO2 POC ABG pO2 ABG pO2 ABG HCO3 ABG Base Excess ABG Hemoglobin Oxyhemoglobin Sodium 132 L Potassium Chloride 94.7 L Carbon Dioxide BUN 51 H Creatinine 1.6 H Glucose 130 H POC Glucose Lactic Acid Calcium 8.3 L Phosphorus 1.60 L D Magnesium Direct Bilirubin AST ALT Alkaline Phosphatase Lactate Dehydrogenase Troponin T C-Reactive Protein Total Protein Albumin Prealbumin Triglycerides Cholesterol LDL Cholesterol Direct HDL Cholesterol PTH Intact Urine pH Urine WBC (Auto) Urine Creatinine Urine Total Protein Fluid Total Protein Vancomycin Trough Rheumatoid Factor Complement C4 Miscellaneous Test Crossmatch 10/25/16 10/25/16 10/25/16 04:32 11:48 17:22 WBC RBC Hgb Hct MCV MCH MCHC RDW Plt Count Lymph % (Auto) [place] % (Auto) Lymph # [place] # Baso # Seg Neutrophils % Seg Neuts % (Manual) Lymphocytes % (Manual) Monocytes % (Manual) Eosinophils % (Manual) Basophils % (Manual) Nucleated RBC % Seg Neutrophils # Seg Neutrophils # Man Lymphocytes # (Manual) Monocytes # (Manual) Eosinophils # (Manual) Basophils # (Manual) PT INR Fibrinogen dRVVT Confirm Interp Factor V Activity POC ABG pH POC ABG pCO2 POC ABG pO2 ABG pO2 ABG HCO3 ABG Base Excess ABG Hemoglobin Oxyhemoglobin Sodium Potassium Chloride Carbon Dioxide BUN Creatinine Glucose POC Glucose 124 H 171 H 120 H Lactic Acid Calcium Phosphorus Magnesium Direct Bilirubin AST ALT Alkaline Phosphatase Lactate Dehydrogenase Troponin T C-Reactive Protein Total Protein Albumin Prealbumin Triglycerides Cholesterol LDL Cholesterol Direct HDL Cholesterol PTH Intact Urine pH Urine WBC (Auto) Urine Creatinine Urine Total Protein Fluid Total Protein Vancomycin Trough Rheumatoid Factor Complement C4 Miscellaneous Test Crossmatch 10/26/16 10/26/16 10/26/16 04:54 07:06 07:06 WBC 16.9 H RBC 3.06 L Hgb 9.1 L Hct 26.9 L MCV MCH MCHC RDW 16.9 H Plt Count Lymph % (Auto) [place] % (Auto) Lymph # [place] # Baso # Seg Neutrophils % Seg Neuts % (Manual) 71.0 H Lymphocytes % (Manual) 5.0 L Monocytes % (Manual) 12.0 H Eosinophils % (Manual) Basophils % (Manual) Nucleated RBC % Seg Neutrophils # Seg Neutrophils # Man 12.0 H Lymphocytes # (Manual) 0.8 L Monocytes # (Manual) 2.0 H Eosinophils # (Manual) Basophils # (Manual) PT INR Fibrinogen dRVVT Confirm Interp Factor V Activity POC ABG pH POC ABG pCO2 POC ABG pO2 ABG pO2 ABG HCO3 ABG Base Excess ABG Hemoglobin Oxyhemoglobin Sodium 135 L Potassium Chloride 97.1 L Carbon Dioxide BUN 73 H Creatinine 2.2 H Glucose 117 H POC Glucose 123 H Lactic Acid Calcium Phosphorus 1.70 L Magnesium Direct Bilirubin AST ALT Alkaline Phosphatase Lactate Dehydrogenase Troponin T C-Reactive Protein Total Protein Albumin Prealbumin Triglycerides Cholesterol LDL Cholesterol Direct HDL Cholesterol PTH Intact Urine pH Urine WBC (Auto) Urine Creatinine Urine Total Protein Fluid Total Protein Vancomycin Trough Rheumatoid Factor Complement C4 Miscellaneous Test Crossmatch 10/26/16 10/26/16 10/26/16 12:12 17:29 23:42 WBC RBC Hgb Hct MCV MCH MCHC RDW Plt Count Lymph % (Auto) [place] % (Auto) Lymph # [place] # Baso # Seg Neutrophils % Seg Neuts % (Manual) Lymphocytes % (Manual) Monocytes % (Manual) Eosinophils % (Manual) Basophils % (Manual) Nucleated RBC % Seg Neutrophils # Seg Neutrophils # Man Lymphocytes # (Manual) Monocytes # (Manual) Eosinophils # (Manual) Basophils # (Manual) PT INR Fibrinogen dRVVT Confirm Interp Factor V Activity POC ABG pH POC ABG pCO2 POC ABG pO2 ABG pO2 ABG HCO3 ABG Base Excess ABG Hemoglobin Oxyhemoglobin Sodium Potassium Chloride Carbon Dioxide BUN Creatinine Glucose POC Glucose 126 H 161 H 118 H Lactic Acid Calcium Phosphorus Magnesium Direct Bilirubin AST ALT Alkaline Phosphatase Lactate Dehydrogenase Troponin T C-Reactive Protein Total Protein Albumin Prealbumin Triglycerides Cholesterol LDL Cholesterol Direct HDL Cholesterol PTH Intact Urine pH Urine WBC (Auto) Urine Creatinine Urine Total Protein Fluid Total Protein Vancomycin Trough Rheumatoid Factor Complement C4 Miscellaneous Test Crossmatch 10/27/16 10/27/1610/27/17 05:03 06:30 06:30 WBC 13.9 H RBC 3.09 L Hgb 9.2 L Hct 27.5 L MCV MCH MCHC RDW 17.0 H Plt Count Lymph % (Auto) [place] % (Auto) Lymph # [place] # Baso # Seg Neutrophils % Seg Neuts % (Manual) 78.0 H Lymphocytes % (Manual) Monocytes % (Manual) Eosinophils % (Manual) Basophils % (Manual) Nucleated RBC % 2.0 H Seg Neutrophils # Seg Neutrophils # Man 10.8 H Lymphocytes # (Manual) Monocytes # (Manual) 1.0 H Eosinophils # (Manual) Basophils # (Manual) PT INR Fibrinogen dRVVT Confirm Interp Factor V Activity POC ABG pH POC ABG pCO2 POC ABG pO2 ABG pO2 ABG HCO3 ABG Base Excess ABG Hemoglobin Oxyhemoglobin Sodium Potassium Chloride Carbon Dioxide BUN 40 H Creatinine 1.5 H Glucose 135 H POC Glucose 107 H Lactic Acid Calcium 8.3 L Phosphorus 1.30 L D Magnesium Direct Bilirubin AST ALT Alkaline Phosphatase Lactate Dehydrogenase Troponin T C-Reactive Protein Total Protein Albumin Prealbumin Triglycerides Cholesterol LDL Cholesterol Direct HDL Cholesterol PTH Intact Urine pH Urine WBC (Auto) Urine Creatinine Urine Total Protein Fluid Total Protein Vancomycin Trough Rheumatoid Factor Complement C4 Miscellaneous Test Crossmatch 10/27/16 10/27/16 10/27/16 13:27 18:07 23:40 WBC RBC Hgb Hct MCV MCH MCHC RDW Plt Count Lymph % (Auto) [place] % (Auto) Lymph # [place] # Baso # Seg Neutrophils % Seg Neuts % (Manual) Lymphocytes % (Manual) Monocytes % (Manual) Eosinophils % (Manual) Basophils % (Manual) Nucleated RBC % Seg Neutrophils # Seg Neutrophils # Man Lymphocytes # (Manual) Monocytes # (Manual) Eosinophils # (Manual) Basophils # (Manual) PT INR Fibrinogen dRVVT Confirm Interp Factor V Activity POC ABG pH POC ABG pCO2 POC ABG pO2 ABG pO2 ABG HCO3 ABG Base Excess ABG Hemoglobin Oxyhemoglobin Sodium Potassium Chloride Carbon Dioxide BUN Creatinine Glucose POC Glucose 117 H 121 H 118 H Lactic Acid Calcium Phosphorus Magnesium Direct Bilirubin AST ALT Alkaline Phosphatase Lactate Dehydrogenase Troponin T C-Reactive Protein Total Protein Albumin Prealbumin Triglycerides Cholesterol LDL Cholesterol Direct HDL Cholesterol PTH Intact Urine pH Urine WBC (Auto) Urine Creatinine Urine Total Protein Fluid Total Protein Vancomycin Trough Rheumatoid Factor Complement C4 Miscellaneous Test Crossmatch 10/28/16 10/28/16 10/28/16 05:48 06:45 06:45 WBC 14.7 H RBC 3.05 L Hgb 9.0 L Hct 26.9 L MCV MCH MCHC RDW 16.8 H Plt Count Lymph % (Auto) 8.2 L [place] % (Auto) 8.4 H Lymph # [place] # 1.2 H Baso # Seg Neutrophils % 81.9 H Seg Neuts % (Manual) Lymphocytes % (Manual) Monocytes % (Manual) Eosinophils % (Manual) Basophils % (Manual) Nucleated RBC % Seg Neutrophils # 12.1 H Seg Neutrophils # Man Lymphocytes # (Manual) Monocytes # (Manual) Eosinophils # (Manual) Basophils # (Manual) PT INR Fibrinogen dRVVT Confirm Interp Factor V Activity POC ABG pH POC ABG pCO2 POC ABG pO2 ABG pO2 ABG HCO3 ABG Base Excess ABG Hemoglobin Oxyhemoglobin Sodium Potassium Chloride Carbon Dioxide BUN 60 H Creatinine 1.9 H Glucose 120 H POC Glucose 114 H Lactic Acid Calcium Phosphorus Magnesium Direct Bilirubin AST ALT Alkaline Phosphatase Lactate Dehydrogenase Troponin T C-Reactive Protein Total Protein Albumin Prealbumin Triglycerides Cholesterol LDL Cholesterol Direct HDL Cholesterol PTH Intact Urine pH Urine WBC (Auto) Urine Creatinine Urine Total Protein Fluid Total Protein Vancomycin Trough Rheumatoid Factor Complement C4 Miscellaneous Test Crossmatch 10/28/16 10/28/16 10/29/16 17:08 23:50 05:10 WBC RBC Hgb Hct MCV MCH MCHC RDW Plt Count Lymph % (Auto) [place] % (Auto) Lymph # [place] # Baso # Seg Neutrophils % Seg Neuts % (Manual) Lymphocytes % (Manual) Monocytes % (Manual) Eosinophils % (Manual) Basophils % (Manual) Nucleated RBC % Seg Neutrophils # Seg Neutrophils # Man Lymphocytes # (Manual) Monocytes # (Manual) Eosinophils # (Manual) Basophils # (Manual) PT INR Fibrinogen dRVVT Confirm Interp Factor V Activity POC ABG pH POC ABG pCO2 POC ABG pO2 ABG pO2 ABG HCO3 ABG Base Excess ABG Hemoglobin Oxyhemoglobin Sodium Potassium Chloride Carbon Dioxide BUN Creatinine Glucose POC Glucose 109 H 110 H 124 H Lactic Acid Calcium Phosphorus Magnesium Direct Bilirubin AST ALT Alkaline Phosphatase Lactate Dehydrogenase Troponin T C-Reactive Protein Total Protein Albumin Prealbumin Triglycerides Cholesterol LDL Cholesterol Direct HDL Cholesterol PTH Intact Urine pH Urine WBC (Auto) Urine Creatinine Urine Total Protein Fluid Total Protein Vancomycin Trough Rheumatoid Factor Complement C4 Miscellaneous Test Crossmatch 10/29/16 10/29/16 10/29/16 07:45 07:45 12:19 WBC 14.7 H RBC 3.15 L Hgb 9.3 L Hct 28.9 L MCV MCH MCHC RDW 17.0 H Plt Count Lymph % (Auto) 11.9 L [place] % (Auto) 8.6 H Lymph # [place] # 1.3 H Baso # Seg Neutrophils % 78.1 H Seg Neuts % (Manual) Lymphocytes % (Manual) Monocytes % (Manual) Eosinophils % (Manual) Basophils % (Manual) Nucleated RBC % Seg Neutrophils # 11.4 H Seg Neutrophils # Man Lymphocytes # (Manual) Monocytes # (Manual) Eosinophils # (Manual) Basophils # (Manual) PT INR Fibrinogen dRVVT Confirm Interp Factor V Activity POC ABG pH POC ABG pCO2 POC ABG pO2 ABG pO2 ABG HCO3 ABG Base Excess ABG Hemoglobin Oxyhemoglobin Sodium Potassium 5.1 H Chloride Carbon Dioxide 19 L BUN 78 H Creatinine 2.2 H Glucose 116 H POC Glucose 118 H Lactic Acid Calcium Phosphorus Magnesium Direct Bilirubin AST ALT Alkaline Phosphatase Lactate Dehydrogenase Troponin T C-Reactive Protein Total Protein Albumin Prealbumin Triglycerides Cholesterol LDL Cholesterol Direct HDL Cholesterol PTH Intact Urine pH Urine WBC (Auto) Urine Creatinine Urine Total Protein Fluid Total Protein Vancomycin Trough Rheumatoid Factor Complement C4 Miscellaneous Test Crossmatch 10/29/16 10/30/16 10/30/16 17:49 01:52 03:28 WBC RBC Hgb Hct MCV MCH MCHC RDW Plt Count Lymph % (Auto) [place] % (Auto) Lymph # [place] # Baso # Seg Neutrophils % Seg Neuts % (Manual) Lymphocytes % (Manual) Monocytes % (Manual) Eosinophils % (Manual) Basophils % (Manual) Nucleated RBC % Seg Neutrophils # Seg Neutrophils # Man Lymphocytes # (Manual) Monocytes # (Manual) Eosinophils # (Manual) Basophils # (Manual) PT INR Fibrinogen dRVVT Confirm Interp Factor V Activity POC ABG pH POC ABG pCO2 POC ABG pO2 ABG pO2 ABG HCO3 ABG Base Excess ABG Hemoglobin Oxyhemoglobin Sodium Potassium 5.4 H Chloride 97.5 L Carbon Dioxide 19 L BUN 90 H Creatinine 2.5 H Glucose POC Glucose 120 H 129 H Lactic Acid Calcium Phosphorus 5.20 H Magnesium Direct Bilirubin AST ALT Alkaline Phosphatase Lactate Dehydrogenase Troponin T C-Reactive Protein Total Protein Albumin Prealbumin Triglycerides Cholesterol LDL Cholesterol Direct HDL Cholesterol PTH Intact Urine pH Urine WBC (Auto) Urine Creatinine Urine Total Protein Fluid Total Protein Vancomycin Trough Rheumatoid Factor Complement C4 Miscellaneous Test Crossmatch 10/30/16 10/30/16 10/30/16 03:28 08:19 08:19 WBC 11.6 H 15.9 H RBC 2.75 L 2.82 L Hgb 7.9 L 8.3 L Hct 24.2 L 25.2 L MCV MCH MCHC RDW 16.7 H 17.2 H Plt Count Lymph % (Auto) [place] % (Auto) 9.8 H Lymph # [place] # 1.1 H Baso # Seg Neutrophils % 74.2 H Seg Neuts % (Manual) Lymphocytes % (Manual) Monocytes % (Manual) Eosinophils % (Manual) Basophils % (Manual) Nucleated RBC % Seg Neutrophils # 8.6 H Seg Neutrophils # Man Lymphocytes # (Manual) Monocytes # (Manual) Eosinophils # (Manual) Basophils # (Manual) PT INR Fibrinogen dRVVT Confirm Interp Factor V Activity POC ABG pH POC ABG pCO2 POC ABG pO2 ABG pO2 ABG HCO3 ABG Base Excess ABG Hemoglobin Oxyhemoglobin Sodium Potassium 5.3 H Chloride 97.4 L Carbon Dioxide 19 L BUN 93 H Creatinine 2.6 H Glucose POC Glucose Lactic Acid Calcium Phosphorus Magnesium Direct Bilirubin AST ALT Alkaline Phosphatase Lactate Dehydrogenase Troponin T C-Reactive Protein Total Protein Albumin Prealbumin Triglycerides Cholesterol LDL Cholesterol Direct HDL Cholesterol PTH Intact Urine pH Urine WBC (Auto) Urine Creatinine Urine Total Protein Fluid Total Protein Vancomycin Trough Rheumatoid Factor Complement C4 Miscellaneous Test Crossmatch 10/30/16 10/30/16 10/31/16 17:11 23:56 00:40 WBC RBC Hgb Hct MCV MCH MCHC RDW Plt Count Lymph % (Auto) [place] % (Auto) Lymph # [place] # Baso # Seg Neutrophils % Seg Neuts % (Manual) Lymphocytes % (Manual) Monocytes % (Manual) Eosinophils % (Manual) Basophils % (Manual) Nucleated RBC % Seg Neutrophils # Seg Neutrophils # Man Lymphocytes # (Manual) Monocytes # (Manual) Eosinophils # (Manual) Basophils # (Manual) PT INR Fibrinogen dRVVT Confirm Interp Factor V Activity POC ABG pH POC ABG pCO2 POC ABG pO2 ABG pO2 ABG HCO3 ABG Base Excess ABG Hemoglobin Oxyhemoglobin Sodium Potassium Chloride Carbon Dioxide BUN Creatinine Glucose POC Glucose 106 H 117 H 120 H Lactic Acid Calcium Phosphorus Magnesium Direct Bilirubin AST ALT Alkaline Phosphatase Lactate Dehydrogenase Troponin T C-Reactive Protein Total Protein Albumin Prealbumin Triglycerides Cholesterol LDL Cholesterol Direct HDL Cholesterol PTH Intact Urine pH Urine WBC (Auto) Urine Creatinine Urine Total Protein Fluid Total Protein Vancomycin Trough Rheumatoid Factor Complement C4 Miscellaneous Test Crossmatch 10/31/16 10/31/16 10/31/16 05:43 07:15 07:15 WBC 12.1 H RBC 2.63 L Hgb 7.7 L Hct 23.3 L MCV MCH MCHC RDW 16.7 H Plt Count Lymph % (Auto) 11.7 L [place] % (Auto) 7.7 H Lymph # [place] # 0.9 H Baso # Seg Neutrophils % 78.0 H Seg Neuts % (Manual) Lymphocytes % (Manual) Monocytes % (Manual) Eosinophils % (Manual) Basophils % (Manual) Nucleated RBC % Seg Neutrophils # 9.4 H Seg Neutrophils # Man Lymphocytes # (Manual) Monocytes # (Manual) Eosinophils # (Manual) Basophils # (Manual) PT INR Fibrinogen dRVVT Confirm Interp Factor V Activity POC ABG pH POC ABG pCO2 POC ABG pO2 ABG pO2 ABG HCO3 ABG Base Excess ABG Hemoglobin Oxyhemoglobin Sodium Potassium Chloride 96.4 L Carbon Dioxide 21 L BUN 99 H Creatinine 2.6 H Glucose 144 H POC Glucose 125 H Lactic Acid Calcium Phosphorus 4.80 H Magnesium Direct Bilirubin AST ALT Alkaline Phosphatase Lactate Dehydrogenase Troponin T C-Reactive Protein Total Protein Albumin Prealbumin Triglycerides Cholesterol LDL Cholesterol Direct HDL Cholesterol PTH Intact Urine pH Urine WBC (Auto) Urine Creatinine Urine Total Protein Fluid Total Protein Vancomycin Trough Rheumatoid Factor Complement C4 Miscellaneous Test Crossmatch 10/31/16 10/31/16 11/01/16 11:46 18:34 00:20 WBC RBC Hgb Hct MCV MCH MCHC RDW Plt Count Lymph % (Auto) [place] % (Auto) Lymph # [place] # Baso # Seg Neutrophils % Seg Neuts % (Manual) Lymphocytes % (Manual) Monocytes % (Manual) Eosinophils % (Manual) Basophils % (Manual) Nucleated RBC % Seg Neutrophils # Seg Neutrophils # Man Lymphocytes # (Manual) Monocytes # (Manual) Eosinophils # (Manual) Basophils # (Manual) PT INR Fibrinogen dRVVT Confirm Interp Factor V Activity POC ABG pH POC ABG pCO2 POC ABG pO2 ABG pO2 ABG HCO3 ABG Base Excess ABG Hemoglobin Oxyhemoglobin Sodium Potassium Chloride Carbon Dioxide BUN Creatinine Glucose POC Glucose 159 H 140 H 132 H Lactic Acid Calcium Phosphorus Magnesium Direct Bilirubin AST ALT Alkaline Phosphatase Lactate Dehydrogenase Troponin T C-Reactive Protein Total Protein Albumin Prealbumin Triglycerides Cholesterol LDL Cholesterol Direct HDL Cholesterol PTH Intact Urine pH Urine WBC (Auto) Urine Creatinine Urine Total Protein Fluid Total Protein Vancomycin Trough Rheumatoid Factor Complement C4 Miscellaneous Test Crossmatch 11/01/16 11/01/16 11/01/16 04:55 04:55 06:11 WBC 11.2 H RBC 2.68 L Hgb 7.5 L Hct 23.7 L MCV MCH MCHC RDW 16.1 H Plt Count Lymph % (Auto) [place] % (Auto) 9.8 H Lymph # [place] # 1.1 H Baso # Seg Neutrophils % 70.8 H Seg Neuts % (Manual) Lymphocytes % (Manual) Monocytes % (Manual) Eosinophils % (Manual) Basophils % (Manual) Nucleated RBC % Seg Neutrophils # 7.9 H Seg Neutrophils # Man Lymphocytes # (Manual) Monocytes # (Manual) Eosinophils # (Manual) Basophils # (Manual) PT INR Fibrinogen dRVVT Confirm Interp Factor V Activity POC ABG pH POC ABG pCO2 POC ABG pO2 ABG pO2 ABG HCO3 ABG Base Excess ABG Hemoglobin Oxyhemoglobin Sodium Potassium 3.3 L D Chloride Carbon Dioxide BUN 61 H Creatinine 1.9 H Glucose 114 H POC Glucose 115 H Lactic Acid Calcium Phosphorus 1.80 L D Magnesium Direct Bilirubin AST ALT Alkaline Phosphatase Lactate Dehydrogenase Troponin T C-Reactive Protein Total Protein Albumin Prealbumin Triglycerides Cholesterol LDL Cholesterol Direct HDL Cholesterol PTH Intact Urine pH Urine WBC (Auto) Urine Creatinine Urine Total Protein Fluid Total Protein Vancomycin Trough Rheumatoid Factor Complement C4 Miscellaneous Test Crossmatch 11/01/16 11/01/16 11/01/16 12:29 18:23 23:58 WBC RBC Hgb Hct MCV MCH MCHC RDW Plt Count Lymph % (Auto) [place] % (Auto) Lymph # [place] # Baso # Seg Neutrophils % Seg Neuts % (Manual) Lymphocytes % (Manual) Monocytes % (Manual) Eosinophils % (Manual) Basophils % (Manual) Nucleated RBC % Seg Neutrophils # Seg Neutrophils # Man Lymphocytes # (Manual) Monocytes # (Manual) Eosinophils # (Manual) Basophils # (Manual) PT INR Fibrinogen dRVVT Confirm Interp Factor V Activity POC ABG pH POC ABG pCO2 POC ABG pO2 ABG pO2 ABG HCO3 ABG Base Excess ABG Hemoglobin Oxyhemoglobin Sodium Potassium Chloride Carbon Dioxide BUN Creatinine Glucose POC Glucose 142 H 143 H 128 H Lactic Acid Calcium Phosphorus Magnesium Direct Bilirubin AST ALT Alkaline Phosphatase Lactate Dehydrogenase Troponin T C-Reactive Protein Total Protein Albumin Prealbumin Triglycerides Cholesterol LDL Cholesterol Direct HDL Cholesterol PTH Intact Urine pH Urine WBC (Auto) Urine Creatinine Urine Total Protein Fluid Total Protein Vancomycin Trough Rheumatoid Factor Complement C4 Miscellaneous Test Crossmatch 11/02/16 11/02/16 11/02/16 04:16 05:29 11:58 WBC RBC Hgb Hct MCV MCH MCHC RDW Plt Count Lymph % (Auto) [place] % (Auto) Lymph # [place] # Baso # Seg Neutrophils % Seg Neuts % (Manual) Lymphocytes % (Manual) Monocytes % (Manual) Eosinophils % (Manual) Basophils % (Manual) Nucleated RBC % Seg Neutrophils # Seg Neutrophils # Man Lymphocytes # (Manual) Monocytes # (Manual) Eosinophils # (Manual) Basophils # (Manual) PT INR Fibrinogen dRVVT Confirm Interp Factor V Activity POC ABG pH POC ABG pCO2 POC ABG pO2 ABG pO2 ABG HCO3 ABG Base Excess ABG Hemoglobin Oxyhemoglobin Sodium Potassium 3.1 L Chloride Carbon Dioxide BUN 73 H Creatinine 2.3 H Glucose 112 H POC Glucose 135 H 149 H Lactic Acid Calcium Phosphorus Magnesium Direct Bilirubin AST ALT Alkaline Phosphatase Lactate Dehydrogenase Troponin T C-Reactive Protein Total Protein Albumin Prealbumin Triglycerides Cholesterol LDL Cholesterol Direct HDL Cholesterol PTH Intact Urine pH Urine WBC (Auto) Urine Creatinine Urine Total Protein Fluid Total Protein Vancomycin Trough Rheumatoid Factor Complement C4 Miscellaneous Test Crossmatch 11/02/16 11/02/16 11/03/16 17:42 22:54 06:00 WBC RBC Hgb Hct MCV MCH MCHC RDW Plt Count Lymph % (Auto) [place] % (Auto) Lymph # [place] # Baso # Seg Neutrophils % Seg Neuts % (Manual) Lymphocytes % (Manual) Monocytes % (Manual) Eosinophils % (Manual) Basophils % (Manual) Nucleated RBC % Seg Neutrophils # Seg Neutrophils # Man Lymphocytes # (Manual) Monocytes # (Manual) Eosinophils # (Manual) Basophils # (Manual) PT INR Fibrinogen dRVVT Confirm Interp Factor V Activity POC ABG pH POC ABG pCO2 POC ABG pO2 ABG pO2 ABG HCO3 ABG Base Excess ABG Hemoglobin Oxyhemoglobin Sodium Potassium Chloride 96.7 L Carbon Dioxide BUN 41 H Creatinine 1.5 H Glucose 145 H POC Glucose 182 H 115 H Lactic Acid Calcium Phosphorus 1.60 L D Magnesium 1.50 L Direct Bilirubin AST ALT Alkaline Phosphatase Lactate Dehydrogenase Troponin T C-Reactive Protein Total Protein Albumin Prealbumin Triglycerides Cholesterol LDL Cholesterol Direct HDL Cholesterol PTH Intact Urine pH Urine WBC (Auto) Urine Creatinine Urine Total Protein Fluid Total Protein Vancomycin Trough Rheumatoid Factor Complement C4 Miscellaneous Test Crossmatch 11/03/16 11/03/16 11/03/16 11:53 17:45 23:37 WBC RBC Hgb Hct MCV MCH MCHC RDW Plt Count Lymph % (Auto) [place] % (Auto) Lymph # [place] # Baso # Seg Neutrophils % Seg Neuts % (Manual) Lymphocytes % (Manual) Monocytes % (Manual) Eosinophils % (Manual) Basophils % (Manual) Nucleated RBC % Seg Neutrophils # Seg Neutrophils # Man Lymphocytes # (Manual) Monocytes # (Manual) Eosinophils # (Manual) Basophils # (Manual) PT INR Fibrinogen dRVVT Confirm Interp Factor V Activity POC ABG pH POC ABG pCO2 POC ABG pO2 ABG pO2 ABG HCO3 ABG Base Excess ABG Hemoglobin Oxyhemoglobin Sodium Potassium Chloride Carbon Dioxide BUN Creatinine Glucose POC Glucose 131 H 134 H 113 H Lactic Acid Calcium Phosphorus Magnesium Direct Bilirubin AST ALT Alkaline Phosphatase Lactate Dehydrogenase Troponin T C-Reactive Protein Total Protein Albumin Prealbumin Triglycerides Cholesterol LDL Cholesterol Direct HDL Cholesterol PTH Intact Urine pH Urine WBC (Auto) Urine Creatinine Urine Total Protein Fluid Total Protein Vancomycin Trough Rheumatoid Factor Complement C4 Miscellaneous Test Crossmatch 11/04/16 11/04/16 11/04/16 05:41 06:00 12:10 WBC RBC Hgb Hct MCV MCH MCHC RDW Plt Count Lymph % (Auto) [place] % (Auto) Lymph # [place] # Baso # Seg Neutrophils % Seg Neuts % (Manual) Lymphocytes % (Manual) Monocytes % (Manual) Eosinophils % (Manual) Basophils % (Manual) Nucleated RBC % Seg Neutrophils # Seg Neutrophils # Man Lymphocytes # (Manual) Monocytes # (Manual) Eosinophils # (Manual) Basophils # (Manual) PT INR Fibrinogen dRVVT Confirm Interp Factor V Activity POC ABG pH POC ABG pCO2 POC ABG pO2 ABG pO2 ABG HCO3 ABG Base Excess ABG Hemoglobin Oxyhemoglobin Sodium Potassium Chloride 96.7 L Carbon Dioxide BUN 52 H Creatinine 1.9 H Glucose 126 H POC Glucose 137 H 191 H Lactic Acid Calcium Phosphorus Magnesium Direct Bilirubin AST ALT Alkaline Phosphatase Lactate Dehydrogenase Troponin T C-Reactive Protein Total Protein Albumin Prealbumin Triglycerides Cholesterol LDL Cholesterol Direct HDL Cholesterol PTH Intact Urine pH Urine WBC (Auto) Urine Creatinine Urine Total Protein Fluid Total Protein Vancomycin Trough Rheumatoid Factor Complement C4 Miscellaneous Test Crossmatch 11/04/16 11/05/16 11/05/16 22:57 03:10 05:10 WBC RBC Hgb Hct MCV MCH MCHC RDW Plt Count Lymph % (Auto) [place] % (Auto) Lymph # [place] # Baso # Seg Neutrophils % Seg Neuts % (Manual) Lymphocytes % (Manual) Monocytes % (Manual) Eosinophils % (Manual) Basophils % (Manual) Nucleated RBC % Seg Neutrophils # Seg Neutrophils # Man Lymphocytes # (Manual) Monocytes # (Manual) Eosinophils # (Manual) Basophils # (Manual) PT INR Fibrinogen dRVVT Confirm Interp Factor V Activity POC ABG pH POC ABG pCO2 POC ABG pO2 ABG pO2 ABG HCO3 ABG Base Excess ABG Hemoglobin Oxyhemoglobin Sodium 136 L Potassium Chloride 97.2 L Carbon Dioxide BUN 32 H Creatinine 1.3 H Glucose 123 H POC Glucose 125 H 108 H Lactic Acid Calcium 7.8 L Phosphorus Magnesium Direct Bilirubin AST ALT Alkaline Phosphatase Lactate Dehydrogenase Troponin T C-Reactive Protein Total Protein Albumin Prealbumin Triglycerides Cholesterol LDL Cholesterol Direct HDL Cholesterol PTH Intact Urine pH Urine WBC (Auto) Urine Creatinine Urine Total Protein Fluid Total Protein Vancomycin Trough Rheumatoid Factor Complement C4 Miscellaneous Test Crossmatch 11/05/16 11/05/16 11/05/16 12:23 13:09 13:25 WBC RBC Hgb Hct MCV MCH MCHC RDW Plt Count Lymph % (Auto) [place] % (Auto) Lymph # [place] # Baso # Seg Neutrophils % Seg Neuts % (Manual) Lymphocytes % (Manual) Monocytes % (Manual) Eosinophils % (Manual) Basophils % (Manual) Nucleated RBC % Seg Neutrophils # Seg Neutrophils # Man Lymphocytes # (Manual) Monocytes # (Manual) Eosinophils # (Manual) Basophils # (Manual) PT INR Fibrinogen dRVVT Confirm Interp Factor V Activity POC ABG pH POC ABG pCO2 POC ABG pO2 ABG pO2 ABG HCO3 ABG Base Excess ABG Hemoglobin Oxyhemoglobin Sodium Potassium Chloride Carbon Dioxide BUN Creatinine Glucose POC Glucose 124 H Lactic Acid Calcium Phosphorus Magnesium Direct Bilirubin AST ALT Alkaline Phosphatase Lactate Dehydrogenase Troponin T C-Reactive Protein 11.40 H Total Protein Albumin Prealbumin Triglycerides Cholesterol LDL Cholesterol Direct HDL Cholesterol PTH Intact Urine pH 9.0 H Urine WBC (Auto) Urine Creatinine Urine Total Protein Fluid Total Protein Vancomycin Trough Rheumatoid Factor Complement C4 Miscellaneous Test Crossmatch 11/05/16 11/05/16 11/05/16 13:25 17:54 23:42 WBC RBC Hgb Hct MCV MCH MCHC RDW Plt Count Lymph % (Auto) [place] % (Auto) Lymph # [place] # Baso # Seg Neutrophils % Seg Neuts % (Manual) Lymphocytes % (Manual) Monocytes % (Manual) Eosinophils % (Manual) Basophils % (Manual) Nucleated RBC % Seg Neutrophils # Seg Neutrophils # Man Lymphocytes # (Manual) Monocytes # (Manual) Eosinophils # (Manual) Basophils # (Manual) PT INR Fibrinogen dRVVT Confirm Interp Factor V Activity POC ABG pH POC ABG pCO2 POC ABG pO2 ABG pO2 ABG HCO3 ABG Base Excess ABG Hemoglobin Oxyhemoglobin Sodium Potassium Chloride Carbon Dioxide BUN Creatinine Glucose POC Glucose 114 H 134 H Lactic Acid Calcium Phosphorus Magnesium Direct Bilirubin AST ALT Alkaline Phosphatase Lactate Dehydrogenase Troponin T C-Reactive Protein Total Protein Albumin Prealbumin Triglycerides Cholesterol LDL Cholesterol Direct HDL Cholesterol PTH Intact Urine pH Urine WBC (Auto) Urine Creatinine Urine Total Protein Fluid Total Protein Vancomycin Trough Rheumatoid Factor Complement C4 Miscellaneous Test Flexitest 1 H Crossmatch 11/06/16 11/06/16 11/06/16 04:56 06:25 06:25 WBC RBC 2.50 L Hgb 7.3 L Hct 22.5 L MCV MCH MCHC RDW 16.9 H Plt Count Lymph % (Auto) [place] % (Auto) 10.5 H Lymph # [place] # 1.1 H Baso # Seg Neutrophils % Seg Neuts % (Manual) Lymphocytes % (Manual) Monocytes % (Manual) Eosinophils % (Manual) Basophils % (Manual) Nucleated RBC % Seg Neutrophils # Seg Neutrophils # Man Lymphocytes # (Manual) Monocytes # (Manual) Eosinophils # (Manual) Basophils # (Manual) PT INR Fibrinogen dRVVT Confirm Interp Factor V Activity POC ABG pH POC ABG pCO2 POC ABG pO2 ABG pO2 ABG HCO3 ABG Base Excess ABG Hemoglobin Oxyhemoglobin Sodium Potassium 5.1 H Chloride 95.9 L Carbon Dioxide BUN 52 H Creatinine 1.8 H Glucose 117 H POC Glucose 120 H Lactic Acid Calcium Phosphorus Magnesium Direct Bilirubin AST 103 H ALT 77 H Alkaline Phosphatase 285 H Lactate Dehydrogenase Troponin T C-Reactive Protein Total Protein 6.2 L Albumin 1.8 L Prealbumin 0.180 L Triglycerides Cholesterol LDL Cholesterol Direct HDL Cholesterol PTH Intact Urine pH Urine WBC (Auto) Urine Creatinine Urine Total Protein Fluid Total Protein Vancomycin Trough Rheumatoid Factor Complement C4 Miscellaneous Test Crossmatch 11/06/16 11/06/16 11/06/16 11:56 17:14 23:52 WBC RBC Hgb Hct MCV MCH MCHC RDW Plt Count Lymph % (Auto) [place] % (Auto) Lymph # [place] # Baso # Seg Neutrophils % Seg Neuts % (Manual) Lymphocytes % (Manual) Monocytes % (Manual) Eosinophils % (Manual) Basophils % (Manual) Nucleated RBC % Seg Neutrophils # Seg Neutrophils # Man Lymphocytes # (Manual) Monocytes # (Manual) Eosinophils # (Manual) Basophils # (Manual) PT INR Fibrinogen dRVVT Confirm Interp Factor V Activity POC ABG pH POC ABG pCO2 POC ABG pO2 ABG pO2 ABG HCO3 ABG Base Excess ABG Hemoglobin Oxyhemoglobin Sodium Potassium Chloride Carbon Dioxide BUN Creatinine Glucose POC Glucose 141 H 125 H 130 H Lactic Acid Calcium Phosphorus Magnesium Direct Bilirubin AST ALT Alkaline Phosphatase Lactate Dehydrogenase Troponin T C-Reactive Protein Total Protein Albumin Prealbumin Triglycerides Cholesterol LDL Cholesterol Direct HDL Cholesterol PTH Intact Urine pH Urine WBC (Auto) Urine Creatinine Urine Total Protein Fluid Total Protein Vancomycin Trough Rheumatoid Factor Complement C4 Miscellaneous Test Crossmatch 11/07/16 11/07/16 11/07/16 06:30 06:30 09:37 WBC RBC 2.18 L Hgb 6.3 L Hct 19.7 L* MCV MCH MCHC RDW 16.8 H Plt Count Lymph % (Auto) [place] % (Auto) 10.0 H Lymph # [place] # 1.0 H Baso # Seg Neutrophils % Seg Neuts % (Manual) Lymphocytes % (Manual) Monocytes % (Manual) Eosinophils % (Manual) Basophils % (Manual) Nucleated RBC % Seg Neutrophils # Seg Neutrophils # Man Lymphocytes # (Manual) Monocytes # (Manual) Eosinophils # (Manual) Basophils # (Manual) PT INR Fibrinogen dRVVT Confirm Interp Factor V Activity POC ABG pH POC ABG pCO2 POC ABG pO2 ABG pO2 ABG HCO3 ABG Base Excess ABG Hemoglobin Oxyhemoglobin Sodium 135 L Potassium Chloride 95.6 L Carbon Dioxide BUN 70 H Creatinine 2.0 H Glucose 126 H POC Glucose Lactic Acid Calcium Phosphorus Magnesium Direct Bilirubin AST ALT Alkaline Phosphatase Lactate Dehydrogenase Troponin T C-Reactive Protein Total Protein Albumin Prealbumin Triglycerides Cholesterol LDL Cholesterol Direct HDL Cholesterol PTH Intact Urine pH Urine WBC (Auto) Urine Creatinine Urine Total Protein Fluid Total Protein Vancomycin Trough Rheumatoid Factor Complement C4 Miscellaneous Test Crossmatch See Detail 11/07/16 11/07/16 11/07/16 12:52 18:51 21:26 WBC RBC Hgb Hct MCV MCH MCHC RDW Plt Count Lymph % (Auto) [place] % (Auto) Lymph # [place] # Baso # Seg Neutrophils % Seg Neuts % (Manual) Lymphocytes % (Manual) Monocytes % (Manual) Eosinophils % (Manual) Basophils % (Manual) Nucleated RBC % Seg Neutrophils # Seg Neutrophils # Man Lymphocytes # (Manual) Monocytes # (Manual) Eosinophils # (Manual) Basophils # (Manual) PT INR Fibrinogen dRVVT Confirm Interp Factor V Activity POC ABG pH 7.523 H POC ABG pCO2 34.6 L POC ABG pO2 53 L ABG pO2 ABG HCO3 ABG Base Excess ABG Hemoglobin Oxyhemoglobin Sodium Potassium Chloride Carbon Dioxide BUN Creatinine Glucose POC Glucose 142 H 155 H Lactic Acid Calcium Phosphorus Magnesium Direct Bilirubin AST ALT Alkaline Phosphatase Lactate Dehydrogenase Troponin T C-Reactive Protein Total Protein Albumin Prealbumin Triglycerides Cholesterol LDL Cholesterol Direct HDL Cholesterol PTH Intact Urine pH Urine WBC (Auto) Urine Creatinine Urine Total Protein Fluid Total Protein Vancomycin Trough Rheumatoid Factor Complement C4 Miscellaneous Test Crossmatch 11/07/16 11/08/16 11/08/16 21:34 13:03 23:37 WBC RBC 2.63 L Hgb 7.7 L Hct 22.7 L MCV MCH MCHC RDW 17.0 H Plt Count Lymph % (Auto) [place] % (Auto) Lymph # [place] # Baso # Seg Neutrophils % Seg Neuts % (Manual) Lymphocytes % (Manual) Monocytes % (Manual) Eosinophils % (Manual) Basophils % (Manual) Nucleated RBC % Seg Neutrophils # Seg Neutrophils # Man Lymphocytes # (Manual) Monocytes # (Manual) Eosinophils # (Manual) Basophils # (Manual) PT INR Fibrinogen dRVVT Confirm Interp Factor V Activity POC ABG pH 7.478 H POC ABG pCO2 34.0 L POC ABG pO2 50 L ABG pO2 ABG HCO3 ABG Base Excess ABG Hemoglobin Oxyhemoglobin Sodium Potassium Chloride Carbon Dioxide BUN Creatinine Glucose POC Glucose 113 H Lactic Acid Calcium Phosphorus Magnesium Direct Bilirubin AST ALT Alkaline Phosphatase Lactate Dehydrogenase Troponin T C-Reactive Protein Total Protein Albumin Prealbumin Triglycerides Cholesterol LDL Cholesterol Direct HDL Cholesterol PTH Intact Urine pH Urine WBC (Auto) Urine Creatinine Urine Total Protein Fluid Total Protein Vancomycin Trough Rheumatoid Factor Complement C4 Miscellaneous Test Crossmatch 11/09/16 11/09/16 11/09/16 04:35 10:15 18:21 WBC RBC 2.68 L Hgb 7.8 L Hct 23.3 L MCV MCH MCHC RDW 17.0 H Plt Count Lymph % (Auto) [place] % (Auto) 12.1 H Lymph # [place] # 1.1 H Baso # Seg Neutrophils % Seg Neuts % (Manual) Lymphocytes % (Manual) Monocytes % (Manual) Eosinophils % (Manual) Basophils % (Manual) Nucleated RBC % Seg Neutrophils # Seg Neutrophils # Man Lymphocytes # (Manual) Monocytes # (Manual) Eosinophils # (Manual) Basophils # (Manual) PT INR Fibrinogen dRVVT Confirm Interp Factor V Activity POC ABG pH POC ABG pCO2 POC ABG pO2 ABG pO2 ABG HCO3 ABG Base Excess ABG Hemoglobin Oxyhemoglobin Sodium Potassium Chloride Carbon Dioxide BUN 51 H Creatinine 1.8 H Glucose POC Glucose 60 L Lactic Acid Calcium 8.3 L Phosphorus Magnesium Direct Bilirubin AST ALT Alkaline Phosphatase Lactate Dehydrogenase Troponin T C-Reactive Protein Total Protein Albumin Prealbumin Triglycerides Cholesterol LDL Cholesterol Direct HDL Cholesterol PTH Intact Urine pH Urine WBC (Auto) Urine Creatinine Urine Total Protein Fluid Total Protein Vancomycin Trough Rheumatoid Factor Complement C4 Miscellaneous Test Crossmatch 11/09/16 11/10/16 11/10/16 18:55 07:00 11:51 WBC RBC Hgb Hct MCV MCH MCHC RDW Plt Count Lymph % (Auto) [place] % (Auto) Lymph # [place] # Baso # Seg Neutrophils % Seg Neuts % (Manual) Lymphocytes % (Manual) Monocytes % (Manual) Eosinophils % (Manual) Basophils % (Manual) Nucleated RBC % Seg Neutrophils # Seg Neutrophils # Man Lymphocytes # (Manual) Monocytes # (Manual) Eosinophils # (Manual) Basophils # (Manual) PT INR Fibrinogen dRVVT Confirm Interp Factor V Activity POC ABG pH POC ABG pCO2 POC ABG pO2 ABG pO2 ABG HCO3 ABG Base Excess ABG Hemoglobin Oxyhemoglobin Sodium Potassium 3.0 L D Chloride 97.4 L Carbon Dioxide BUN 28 H Creatinine 1.3 H Glucose POC Glucose 68 L 120 H Lactic Acid Calcium 7.8 L Phosphorus Magnesium Direct Bilirubin AST ALT Alkaline Phosphatase Lactate Dehydrogenase Troponin T C-Reactive Protein Total Protein Albumin Prealbumin Triglycerides Cholesterol LDL Cholesterol Direct HDL Cholesterol PTH Intact Urine pH Urine WBC (Auto) Urine Creatinine Urine Total Protein Fluid Total Protein Vancomycin Trough Rheumatoid Factor Complement C4 Miscellaneous Test Crossmatch 11/10/16 11/11/16 11/11/16 14:20 06:59 06:59 WBC RBC 2.81 L Hgb 8.1 L Hct 24.4 L MCV MCH MCHC RDW 16.4 H Plt Count Lymph % (Auto) [place] % (Auto) 10.8 H Lymph # [place] # 1.0 H Baso # Seg Neutrophils % Seg Neuts % (Manual) Lymphocytes % (Manual) Monocytes % (Manual) Eosinophils % (Manual) Basophils % (Manual) Nucleated RBC % Seg Neutrophils # Seg Neutrophils # Man Lymphocytes # (Manual) Monocytes # (Manual) Eosinophils # (Manual) Basophils # (Manual) PT INR Fibrinogen dRVVT Confirm Interp Factor V Activity POC ABG pH POC ABG pCO2 POC ABG pO2 ABG pO2 ABG HCO3 ABG Base Excess ABG Hemoglobin Oxyhemoglobin Sodium Potassium Chloride Carbon Dioxide BUN Creatinine Glucose POC Glucose Lactic Acid Calcium Phosphorus Magnesium Direct Bilirubin AST ALT Alkaline Phosphatase Lactate Dehydrogenase 196 H Troponin T C-Reactive Protein Total Protein 6.1 L Albumin Prealbumin Triglycerides Cholesterol LDL Cholesterol Direct HDL Cholesterol PTH Intact Urine pH Urine WBC (Auto) Urine Creatinine Urine Total Protein Fluid Total Protein < 3.0 L Vancomycin Trough Rheumatoid Factor Complement C4 Miscellaneous Test Crossmatch 11/11/16 11/11/16 11/12/16 06:59 09:50 04:00 WBC RBC Hgb Hct MCV MCH MCHC RDW Plt Count Lymph % (Auto) [place] % (Auto) Lymph # [place] # Baso # Seg Neutrophils % Seg Neuts % (Manual) Lymphocytes % (Manual) Monocytes % (Manual) Eosinophils % (Manual) Basophils % (Manual) Nucleated RBC % Seg Neutrophils # Seg Neutrophils # Man Lymphocytes # (Manual) Monocytes # (Manual) Eosinophils # (Manual) Basophils # (Manual) PT INR 1.18 H Fibrinogen dRVVT Confirm Interp Factor V Activity POC ABG pH POC ABG pCO2 POC ABG pO2 ABG pO2 ABG HCO3 ABG Base Excess ABG Hemoglobin Oxyhemoglobin Sodium 136 L 133 L Potassium Chloride 96.1 L 94.8 L Carbon Dioxide 21 L BUN 37 H 42 H Creatinine 1.8 H 2.0 H Glucose POC Glucose Lactic Acid Calcium Phosphorus Magnesium Direct Bilirubin AST ALT Alkaline Phosphatase Lactate Dehydrogenase Troponin T C-Reactive Protein Total Protein Albumin Prealbumin Triglycerides Cholesterol LDL Cholesterol Direct HDL Cholesterol PTH Intact Urine pH Urine WBC (Auto) Urine Creatinine Urine Total Protein Fluid Total Protein Vancomycin Trough Rheumatoid Factor Complement C4 Miscellaneous Test Crossmatch 11/12/16 11/12/16 11/13/16 04:00 23:55 05:53 WBC RBC Hgb 8.9 L Hct 27.2 L MCV MCH MCHC RDW Plt Count Lymph % (Auto) [place] % (Auto) Lymph # [place] # Baso # Seg Neutrophils % Seg Neuts % (Manual) Lymphocytes % (Manual) Monocytes % (Manual) Eosinophils % (Manual) Basophils % (Manual) Nucleated RBC % Seg Neutrophils # Seg Neutrophils # Man Lymphocytes # (Manual) Monocytes # (Manual) Eosinophils # (Manual) Basophils # (Manual) PT INR Fibrinogen dRVVT Confirm Interp Factor V Activity POC ABG pH POC ABG pCO2 POC ABG pO2 ABG pO2 ABG HCO3 ABG Base Excess ABG Hemoglobin Oxyhemoglobin Sodium Potassium Chloride Carbon Dioxide BUN Creatinine Glucose POC Glucose 132 H 120 H Lactic Acid Calcium Phosphorus Magnesium Direct Bilirubin AST ALT Alkaline Phosphatase Lactate Dehydrogenase Troponin T C-Reactive Protein Total Protein Albumin Prealbumin Triglycerides Cholesterol LDL Cholesterol Direct HDL Cholesterol PTH Intact Urine pH Urine WBC (Auto) Urine Creatinine Urine Total Protein Fluid Total Protein Vancomycin Trough Rheumatoid Factor Complement C4 Miscellaneous Test Crossmatch 11/13/16 11/13/16 11/13/16 11:43 17:09 23:41 WBC RBC Hgb Hct MCV MCH MCHC RDW Plt Count Lymph % (Auto) [place] % (Auto) Lymph # [place] # Baso # Seg Neutrophils % Seg Neuts % (Manual) Lymphocytes % (Manual) Monocytes % (Manual) Eosinophils % (Manual) Basophils % (Manual) Nucleated RBC % Seg Neutrophils # Seg Neutrophils # Man Lymphocytes # (Manual) Monocytes # (Manual) Eosinophils # (Manual) Basophils # (Manual) PT INR Fibrinogen dRVVT Confirm Interp Factor V Activity POC ABG pH POC ABG pCO2 POC ABG pO2 ABG pO2 ABG HCO3 ABG Base Excess ABG Hemoglobin Oxyhemoglobin Sodium Potassium Chloride Carbon Dioxide BUN Creatinine Glucose POC Glucose 114 H 113 H 108 H Lactic Acid Calcium Phosphorus Magnesium Direct Bilirubin AST ALT Alkaline Phosphatase Lactate Dehydrogenase Troponin T C-Reactive Protein Total Protein Albumin Prealbumin Triglycerides Cholesterol LDL Cholesterol Direct HDL Cholesterol PTH Intact Urine pH Urine WBC (Auto) Urine Creatinine Urine Total Protein Fluid Total Protein Vancomycin Trough Rheumatoid Factor Complement C4 Miscellaneous Test Crossmatch 11/13/16 11/15/16 11/15/16 Unknown 00:37 03:30 WBC 11.2 H RBC 2.72 L Hgb 7.6 L Hct 23.4 L MCV MCH MCHC RDW 16.5 H Plt Count Lymph % (Auto) [place] % (Auto) Lymph # [place] # Baso # Seg Neutrophils % Seg Neuts % (Manual) Lymphocytes % (Manual) Monocytes % (Manual) Eosinophils % (Manual) Basophils % (Manual) Nucleated RBC % Seg Neutrophils # Seg Neutrophils # Man Lymphocytes # (Manual) Monocytes # (Manual) Eosinophils # (Manual) Basophils # (Manual) PT INR Fibrinogen dRVVT Confirm Interp Factor V Activity POC ABG pH POC ABG pCO2 POC ABG pO2 ABG pO2 ABG HCO3 ABG Base Excess ABG Hemoglobin Oxyhemoglobin Sodium 135 L Potassium Chloride 95.2 L Carbon Dioxide BUN 52 H Creatinine 2.2 H Glucose POC Glucose 108 H Lactic Acid Calcium Phosphorus Magnesium Direct Bilirubin AST ALT Alkaline Phosphatase Lactate Dehydrogenase Troponin T C-Reactive Protein Total Protein Albumin Prealbumin Triglycerides Cholesterol LDL Cholesterol Direct HDL Cholesterol PTH Intact Urine pH Urine WBC (Auto) Urine Creatinine Urine Total Protein Fluid Total Protein Vancomycin Trough Rheumatoid Factor Complement C4 Miscellaneous Test Crossmatch 11/15/16 11/15/16 11/15/16 03:30 05:04 11:50 WBC RBC Hgb Hct MCV MCH MCHC RDW Plt Count Lymph % (Auto) [place] % (Auto) Lymph # [place] # Baso # Seg Neutrophils % Seg Neuts % (Manual) Lymphocytes % (Manual) Monocytes % (Manual) Eosinophils % (Manual) Basophils % (Manual) Nucleated RBC % Seg Neutrophils # Seg Neutrophils # Man Lymphocytes # (Manual) Monocytes # (Manual) Eosinophils # (Manual) Basophils # (Manual) PT INR Fibrinogen dRVVT Confirm Interp Factor V Activity POC ABG pH POC ABG pCO2 POC ABG pO2 ABG pO2 ABG HCO3 ABG Base Excess ABG Hemoglobin Oxyhemoglobin Sodium Potassium 3.4 L Chloride Carbon Dioxide BUN 25 H Creatinine 1.5 H Glucose 103 H POC Glucose 121 H 144 H Lactic Acid Calcium Phosphorus Magnesium Direct Bilirubin AST ALT Alkaline Phosphatase Lactate Dehydrogenase Troponin T C-Reactive Protein Total Protein Albumin Prealbumin Triglycerides Cholesterol LDL Cholesterol Direct HDL Cholesterol PTH Intact Urine pH Urine WBC (Auto) Urine Creatinine Urine Total Protein Fluid Total Protein Vancomycin Trough Rheumatoid Factor Complement C4 Miscellaneous Test Crossmatch 11/15/16 11/15/16 11/16/16 21:28 23:20 11:44 WBC RBC Hgb Hct MCV MCH MCHC RDW Plt Count Lymph % (Auto) [place] % (Auto) Lymph # [place] # Baso # Seg Neutrophils % Seg Neuts % (Manual) Lymphocytes % (Manual) Monocytes % (Manual) Eosinophils % (Manual) Basophils % (Manual) Nucleated RBC % Seg Neutrophils # Seg Neutrophils # Man Lymphocytes # (Manual) Monocytes # (Manual) Eosinophils # (Manual) Basophils # (Manual) PT INR Fibrinogen dRVVT Confirm Interp Factor V Activity POC ABG pH 7.462 H POC ABG pCO2 POC ABG pO2 71 L ABG pO2 ABG HCO3 ABG Base Excess ABG Hemoglobin Oxyhemoglobin Sodium Potassium Chloride Carbon Dioxide BUN Creatinine Glucose POC Glucose 116 H 133 H Lactic Acid Calcium Phosphorus Magnesium Direct Bilirubin AST ALT Alkaline Phosphatase Lactate Dehydrogenase Troponin T C-Reactive Protein Total Protein Albumin Prealbumin Triglycerides Cholesterol LDL Cholesterol Direct HDL Cholesterol PTH Intact Urine pH Urine WBC (Auto) Urine Creatinine Urine Total Protein Fluid Total Protein Vancomycin Trough Rheumatoid Factor Complement C4 Miscellaneous Test Crossmatch 11/16/16 11/16/16 11/16/16 12:20 17:05 23:35 WBC 11.7 H RBC 2.73 L Hgb 7.6 L Hct 23.7 L MCV MCH MCHC RDW 16.6 H Plt Count Lymph % (Auto) [place] % (Auto) Lymph # [place] # Baso # Seg Neutrophils % Seg Neuts % (Manual) Lymphocytes % (Manual) Monocytes % (Manual) Eosinophils % (Manual) Basophils % (Manual) Nucleated RBC % Seg Neutrophils # Seg Neutrophils # Man Lymphocytes # (Manual) Monocytes # (Manual) Eosinophils # (Manual) Basophils # (Manual) PT INR Fibrinogen dRVVT Confirm Interp Factor V Activity POC ABG pH POC ABG pCO2 POC ABG pO2 ABG pO2 ABG HCO3 ABG Base Excess ABG Hemoglobin Oxyhemoglobin Sodium Potassium Chloride Carbon Dioxide BUN Creatinine Glucose POC Glucose 154 H 125 H Lactic Acid Calcium Phosphorus Magnesium Direct Bilirubin AST ALT Alkaline Phosphatase Lactate Dehydrogenase Troponin T C-Reactive Protein Total Protein Albumin Prealbumin Triglycerides Cholesterol LDL Cholesterol Direct HDL Cholesterol PTH Intact Urine pH Urine WBC (Auto) Urine Creatinine Urine Total Protein Fluid Total Protein Vancomycin Trough Rheumatoid Factor Complement C4 Miscellaneous Test Crossmatch 11/17/16 11/17/16 11/17/16 03:20 03:20 03:20 WBC RBC 2.55 L Hgb 7.3 L Hct 21.9 L MCV MCH MCHC RDW 16.6 H Plt Count Lymph % (Auto) [place] % (Auto) 11.5 H Lymph # [place] # 1.1 H Baso # Seg Neutrophils % Seg Neuts % (Manual) Lymphocytes % (Manual) Monocytes % (Manual) Eosinophils % (Manual) Basophils % (Manual) Nucleated RBC % Seg Neutrophils # Seg Neutrophils # Man Lymphocytes # (Manual) Monocytes # (Manual) Eosinophils # (Manual) Basophils # (Manual) PT 16.8 H INR 1.37 H Fibrinogen dRVVT Confirm Interp Factor V Activity POC ABG pH POC ABG pCO2 POC ABG pO2 ABG pO2 ABG HCO3 ABG Base Excess ABG Hemoglobin Oxyhemoglobin Sodium Potassium 3.5 L Chloride Carbon Dioxide BUN 21 H Creatinine Glucose POC Glucose Lactic Acid Calcium 7.9 L Phosphorus Magnesium Direct Bilirubin AST ALT Alkaline Phosphatase Lactate Dehydrogenase Troponin T C-Reactive Protein Total Protein Albumin Prealbumin Triglycerides Cholesterol LDL Cholesterol Direct HDL Cholesterol PTH Intact Urine pH Urine WBC (Auto) Urine Creatinine Urine Total Protein Fluid Total Protein Vancomycin Trough Rheumatoid Factor Complement C4 Miscellaneous Test Crossmatch 11/17/16 11/17/16 11/17/16 06:34 11:21 21:22 WBC RBC Hgb Hct MCV MCH MCHC RDW Plt Count Lymph % (Auto) [place] % (Auto) Lymph # [place] # Baso # Seg Neutrophils % Seg Neuts % (Manual) Lymphocytes % (Manual) Monocytes % (Manual) Eosinophils % (Manual) Basophils % (Manual) Nucleated RBC % Seg Neutrophils # Seg Neutrophils # Man Lymphocytes # (Manual) Monocytes # (Manual) Eosinophils # (Manual) Basophils # (Manual) PT INR Fibrinogen dRVVT Confirm Interp Factor V Activity POC ABG pH 7.467 H POC ABG pCO2 POC ABG pO2 73 L ABG pO2 ABG HCO3 ABG Base Excess ABG Hemoglobin Oxyhemoglobin Sodium Potassium Chloride Carbon Dioxide BUN Creatinine Glucose POC Glucose 121 H 119 H Lactic Acid Calcium Phosphorus Magnesium Direct Bilirubin AST ALT Alkaline Phosphatase Lactate Dehydrogenase Troponin T C-Reactive Protein Total Protein Albumin Prealbumin Triglycerides Cholesterol LDL Cholesterol Direct HDL Cholesterol PTH Intact Urine pH Urine WBC (Auto) Urine Creatinine Urine Total Protein Fluid Total Protein Vancomycin Trough Rheumatoid Factor Complement C4 Miscellaneous Test Crossmatch 11/18/16 11/18/16 11/19/16 12:16 17:19 00:00 WBC RBC Hgb Hct MCV MCH MCHC RDW Plt Count Lymph % (Auto) [place] % (Auto) Lymph # [place] # Baso # Seg Neutrophils % Seg Neuts % (Manual) Lymphocytes % (Manual) Monocytes % (Manual) Eosinophils % (Manual) Basophils % (Manual) Nucleated RBC % Seg Neutrophils # Seg Neutrophils # Man Lymphocytes # (Manual) Monocytes # (Manual) Eosinophils # (Manual) Basophils # (Manual) PT INR Fibrinogen dRVVT Confirm Interp Factor V Activity POC ABG pH POC ABG pCO2 POC ABG pO2 ABG pO2 ABG HCO3 ABG Base Excess ABG Hemoglobin Oxyhemoglobin Sodium Potassium Chloride Carbon Dioxide BUN Creatinine Glucose POC Glucose 124 H 162 H 139 H Lactic Acid Calcium Phosphorus Magnesium Direct Bilirubin AST ALT Alkaline Phosphatase Lactate Dehydrogenase Troponin T C-Reactive Protein Total Protein Albumin Prealbumin Triglycerides Cholesterol LDL Cholesterol Direct HDL Cholesterol PTH Intact Urine pH Urine WBC (Auto) Urine Creatinine Urine Total Protein Fluid Total Protein Vancomycin Trough Rheumatoid Factor Complement C4 Miscellaneous Test Crossmatch 11/19/16 11/19/16 11/20/16 05:00 12:43 00:40 WBC RBC Hgb Hct MCV MCH MCHC RDW Plt Count Lymph % (Auto) [place] % (Auto) Lymph # [place] # Baso # Seg Neutrophils % Seg Neuts % (Manual) Lymphocytes % (Manual) Monocytes % (Manual) Eosinophils % (Manual) Basophils % (Manual) Nucleated RBC % Seg Neutrophils # Seg Neutrophils # Man Lymphocytes # (Manual) Monocytes # (Manual) Eosinophils # (Manual) Basophils # (Manual) PT INR Fibrinogen dRVVT Confirm Interp Factor V Activity POC ABG pH POC ABG pCO2 POC ABG pO2 ABG pO2 ABG HCO3 ABG Base Excess ABG Hemoglobin Oxyhemoglobin Sodium Potassium Chloride Carbon Dioxide BUN Creatinine Glucose POC Glucose 110 H 125 H 136 H Lactic Acid Calcium Phosphorus Magnesium Direct Bilirubin AST ALT Alkaline Phosphatase Lactate Dehydrogenase Troponin T C-Reactive Protein Total Protein Albumin Prealbumin Triglycerides Cholesterol LDL Cholesterol Direct HDL Cholesterol PTH Intact Urine pH Urine WBC (Auto) Urine Creatinine Urine Total Protein Fluid Total Protein Vancomycin Trough Rheumatoid Factor Complement C4 Miscellaneous Test Crossmatch 11/20/16 11/20/16 11/20/16 05:00 05:00 05:51 WBC 13.1 H RBC 2.74 L Hgb 7.7 L Hct 23.6 L MCV MCH MCHC RDW 16.9 H Plt Count Lymph % (Auto) [place] % (Auto) 10.8 H Lymph # [place] # 1.4 H Baso # Seg Neutrophils % Seg Neuts % (Manual) Lymphocytes % (Manual) Monocytes % (Manual) Eosinophils % (Manual) Basophils % (Manual) Nucleated RBC % Seg Neutrophils # 7.9 H Seg Neutrophils # Man Lymphocytes # (Manual) Monocytes # (Manual) Eosinophils # (Manual) Basophils # (Manual) PT INR Fibrinogen dRVVT Confirm Interp Factor V Activity POC ABG pH POC ABG pCO2 POC ABG pO2 ABG pO2 ABG HCO3 ABG Base Excess ABG Hemoglobin Oxyhemoglobin Sodium Potassium Chloride Carbon Dioxide BUN 31 H Creatinine 1.8 H Glucose 129 H POC Glucose 133 H Lactic Acid Calcium Phosphorus Magnesium Direct Bilirubin AST ALT Alkaline Phosphatase Lactate Dehydrogenase Troponin T C-Reactive Protein Total Protein Albumin Prealbumin Triglycerides Cholesterol LDL Cholesterol Direct HDL Cholesterol PTH Intact Urine pH Urine WBC (Auto) Urine Creatinine Urine Total Protein Fluid Total Protein Vancomycin Trough Rheumatoid Factor Complement C4 Miscellaneous Test Crossmatch 11/20/16 11/20/16 11/21/16 12:40 18:10 01:20 WBC RBC Hgb Hct MCV MCH MCHC RDW Plt Count Lymph % (Auto) [place] % (Auto) Lymph # [place] # Baso # Seg Neutrophils % Seg Neuts % (Manual) Lymphocytes % (Manual) Monocytes % (Manual) Eosinophils % (Manual) Basophils % (Manual) Nucleated RBC % Seg Neutrophils # Seg Neutrophils # Man Lymphocytes # (Manual) Monocytes # (Manual) Eosinophils # (Manual) Basophils # (Manual) PT INR Fibrinogen dRVVT Confirm Interp Factor V Activity POC ABG pH POC ABG pCO2 POC ABG pO2 ABG pO2 ABG HCO3 ABG Base Excess ABG Hemoglobin Oxyhemoglobin Sodium Potassium Chloride Carbon Dioxide BUN Creatinine Glucose POC Glucose 134 H 138 H 136 H Lactic Acid Calcium Phosphorus Magnesium Direct Bilirubin AST ALT Alkaline Phosphatase Lactate Dehydrogenase Troponin T C-Reactive Protein Total Protein Albumin Prealbumin Triglycerides Cholesterol LDL Cholesterol Direct HDL Cholesterol PTH Intact Urine pH Urine WBC (Auto) Urine Creatinine Urine Total Protein Fluid Total Protein Vancomycin Trough Rheumatoid Factor Complement C4 Miscellaneous Test Crossmatch 11/21/16 11/21/16 11/21/16 07:04 07:45 07:45 WBC 22.0 H RBC 2.91 L Hgb 8.2 L Hct 25.4 L MCV MCH MCHC RDW 17.1 H Plt Count Lymph % (Auto) [place] % (Auto) Lymph # [place] # Baso # Seg Neutrophils % Seg Neuts % (Manual) Lymphocytes % (Manual) 8.0 L Monocytes % (Manual) Eosinophils % (Manual) Basophils % (Manual) Nucleated RBC % Seg Neutrophils # Seg Neutrophils # Man 14.7 H Lymphocytes # (Manual) Monocytes # (Manual) 1.1 H Eosinophils # (Manual) Basophils # (Manual) PT INR Fibrinogen dRVVT Confirm Interp Factor V Activity POC ABG pH POC ABG pCO2 POC ABG pO2 ABG pO2 ABG HCO3 ABG Base Excess ABG Hemoglobin Oxyhemoglobin Sodium Potassium Chloride Carbon Dioxide BUN 42 H Creatinine 2.0 H Glucose POC Glucose 108 H Lactic Acid Calcium Phosphorus Magnesium Direct Bilirubin AST ALT Alkaline Phosphatase Lactate Dehydrogenase Troponin T C-Reactive Protein Total Protein Albumin Prealbumin Triglycerides Cholesterol LDL Cholesterol Direct HDL Cholesterol PTH Intact Urine pH Urine WBC (Auto) Urine Creatinine Urine Total Protein Fluid Total Protein Vancomycin Trough Rheumatoid Factor Complement C4 Miscellaneous Test Crossmatch 11/21/16 11/21/16 11/21/16 08:38 10:09 11:20 WBC RBC Hgb Hct MCV MCH MCHC RDW Plt Count Lymph % (Auto) [place] % (Auto) Lymph # [place] # Baso # Seg Neutrophils % Seg Neuts % (Manual) Lymphocytes % (Manual) Monocytes % (Manual) Eosinophils % (Manual) Basophils % (Manual) Nucleated RBC % Seg Neutrophils # Seg Neutrophils # Man Lymphocytes # (Manual) Monocytes # (Manual) Eosinophils # (Manual) Basophils # (Manual) PT INR Fibrinogen dRVVT Confirm Interp Factor V Activity POC ABG pH 7.346 L POC ABG pCO2 34.4 L POC ABG pO2 314 H ABG pO2 ABG HCO3 ABG Base Excess ABG Hemoglobin Oxyhemoglobin Sodium Potassium Chloride Carbon Dioxide BUN Creatinine Glucose POC Glucose 195 H 153 H Lactic Acid Calcium Phosphorus Magnesium Direct Bilirubin AST ALT Alkaline Phosphatase Lactate Dehydrogenase Troponin T C-Reactive Protein Total Protein Albumin Prealbumin Triglycerides Cholesterol LDL Cholesterol Direct HDL Cholesterol PTH Intact Urine pH Urine WBC (Auto) Urine Creatinine Urine Total Protein Fluid Total Protein Vancomycin Trough Rheumatoid Factor Complement C4 Miscellaneous Test Crossmatch 11/21/16 11/22/1611/22/17 23:37 04:48 05:00 WBC 29.7 H RBC 2.73 L Hgb 7.5 L Hct 24.2 L MCV MCH 27 L MCHC RDW 17.4 H Plt Count Lymph % (Auto) [place] % (Auto) Lymph # [place] # Baso # Seg Neutrophils % Seg Neuts % (Manual) Lymphocytes % (Manual) 7.0 L Monocytes % (Manual) Eosinophils % (Manual) Basophils % (Manual) Nucleated RBC % Seg Neutrophils # Seg Neutrophils # Man 15.4 H Lymphocytes # (Manual) Monocytes # (Manual) Eosinophils # (Manual) Basophils # (Manual) PT INR Fibrinogen dRVVT Confirm Interp Factor V Activity POC ABG pH POC ABG pCO2 24.6 L POC ABG pO2 189 H ABG pO2 ABG HCO3 ABG Base Excess ABG Hemoglobin Oxyhemoglobin Sodium Potassium Chloride Carbon Dioxide BUN Creatinine Glucose POC Glucose 65 L Lactic Acid Calcium Phosphorus Magnesium Direct Bilirubin AST ALT Alkaline Phosphatase Lactate Dehydrogenase Troponin T C-Reactive Protein Total Protein Albumin Prealbumin Triglycerides Cholesterol LDL Cholesterol Direct HDL Cholesterol PTH Intact Urine pH Urine WBC (Auto) Urine Creatinine Urine Total Protein Fluid Total Protein Vancomycin Trough Rheumatoid Factor Complement C4 Miscellaneous Test Crossmatch 11/22/16 11/23/16 11/23/16 05:00 03:44 04:06 WBC RBC 2.52 L Hgb 7.2 L Hct 21.5 L MCV MCH MCHC RDW 17.1 H Plt Count Lymph % (Auto) [place] % (Auto) 12.4 H Lymph # [place] # 1.4 H Baso # Seg Neutrophils % Seg Neuts % (Manual) Lymphocytes % (Manual) Monocytes % (Manual) Eosinophils % (Manual) Basophils % (Manual) Nucleated RBC % Seg Neutrophils # Seg Neutrophils # Man Lymphocytes # (Manual) Monocytes # (Manual) Eosinophils # (Manual) Basophils # (Manual) PT INR Fibrinogen dRVVT Confirm Interp Factor V Activity POC ABG pH 7.493 H POC ABG pCO2 29.5 L POC ABG pO2 49 L ABG pO2 ABG HCO3 ABG Base Excess ABG Hemoglobin Oxyhemoglobin Sodium 134 L Potassium Chloride 95.9 L Carbon Dioxide 14 L D BUN 51 H Creatinine 2.6 H Glucose POC Glucose Lactic Acid Calcium Phosphorus Magnesium Direct Bilirubin AST ALT Alkaline Phosphatase Lactate Dehydrogenase Troponin T C-Reactive Protein Total Protein Albumin Prealbumin Triglycerides Cholesterol LDL Cholesterol Direct HDL Cholesterol PTH Intact Urine pH Urine WBC (Auto) Urine Creatinine Urine Total Protein Fluid Total Protein Vancomycin Trough Rheumatoid Factor Complement C4 Miscellaneous Test Crossmatch 11/23/16 11/23/16 11/24/16 04:06 11:29 06:39 WBC RBC Hgb Hct MCV MCH MCHC RDW Plt Count Lymph % (Auto) [place] % (Auto) Lymph # [place] # Baso # Seg Neutrophils % Seg Neuts % (Manual) Lymphocytes % (Manual) Monocytes % (Manual) Eosinophils % (Manual) Basophils % (Manual) Nucleated RBC % Seg Neutrophils # Seg Neutrophils # Man Lymphocytes # (Manual) Monocytes # (Manual) Eosinophils # (Manual) Basophils # (Manual) PT INR Fibrinogen dRVVT Confirm Interp Factor V Activity POC ABG pH POC ABG pCO2 POC ABG pO2 ABG pO2 ABG HCO3 ABG Base Excess ABG Hemoglobin Oxyhemoglobin Sodium 136 L Potassium Chloride 95.2 L Carbon Dioxide BUN 60 H Creatinine 2.9 H Glucose POC Glucose 69 L 305 H Lactic Acid Calcium Phosphorus Magnesium 1.60 L Direct Bilirubin AST ALT Alkaline Phosphatase Lactate Dehydrogenase Troponin T C-Reactive Protein Total Protein Albumin Prealbumin Triglycerides Cholesterol LDL Cholesterol Direct HDL Cholesterol PTH Intact Urine pH Urine WBC (Auto) Urine Creatinine Urine Total Protein Fluid Total Protein Vancomycin Trough Rheumatoid Factor Complement C4 Miscellaneous Test Crossmatch 11/24/16 11/24/16 11/24/16 06:43 08:08 08:08 WBC 11.2 H RBC 2.47 L Hgb 6.8 L Hct 20.6 L MCV MCH MCHC RDW 17.0 H Plt Count Lymph % (Auto) [place] % (Auto) 10.3 H Lymph # [place] # 1.2 H Baso # Seg Neutrophils % Seg Neuts % (Manual) Lymphocytes % (Manual) Monocytes % (Manual) Eosinophils % (Manual) Basophils % (Manual) Nucleated RBC % Seg Neutrophils # Seg Neutrophils # Man Lymphocytes # (Manual) Monocytes # (Manual) Eosinophils # (Manual) Basophils # (Manual) PT INR Fibrinogen dRVVT Confirm Interp Factor V Activity POC ABG pH POC ABG pCO2 POC ABG pO2 ABG pO2 ABG HCO3 ABG Base Excess ABG Hemoglobin Oxyhemoglobin Sodium 135 L Potassium Chloride 96.3 L Carbon Dioxide BUN 61 H Creatinine 3.1 H Glucose POC Glucose 62 L Lactic Acid Calcium 8.2 L Phosphorus Magnesium Direct Bilirubin AST ALT Alkaline Phosphatase Lactate Dehydrogenase Troponin T C-Reactive Protein Total Protein Albumin Prealbumin Triglycerides Cholesterol LDL Cholesterol Direct HDL Cholesterol PTH Intact Urine pH Urine WBC (Auto) Urine Creatinine Urine Total Protein Fluid Total Protein Vancomycin Trough Rheumatoid Factor Complement C4 Miscellaneous Test Crossmatch 11/24/16 11/24/16 11/24/16 08:34 11:20 12:41 WBC RBC Hgb Hct MCV MCH MCHC RDW Plt Count Lymph % (Auto) [place] % (Auto) Lymph # [place] # Baso # Seg Neutrophils % Seg Neuts % (Manual) Lymphocytes % (Manual) Monocytes % (Manual) Eosinophils % (Manual) Basophils % (Manual) Nucleated RBC % Seg Neutrophils # Seg Neutrophils # Man Lymphocytes # (Manual) Monocytes # (Manual) Eosinophils # (Manual) Basophils # (Manual) PT INR Fibrinogen dRVVT Confirm Interp Factor V Activity POC ABG pH POC ABG pCO2 POC ABG pO2 ABG pO2 ABG HCO3 ABG Base Excess ABG Hemoglobin Oxyhemoglobin Sodium Potassium Chloride Carbon Dioxide BUN Creatinine Glucose POC Glucose 108 H Lactic Acid Calcium Phosphorus Magnesium 1.60 L Direct Bilirubin AST ALT Alkaline Phosphatase Lactate Dehydrogenase Troponin T C-Reactive Protein Total Protein Albumin Prealbumin Triglycerides Cholesterol LDL Cholesterol Direct HDL Cholesterol PTH Intact Urine pH Urine WBC (Auto) Urine Creatinine Urine Total Protein Fluid Total Protein Vancomycin Trough Rheumatoid Factor Complement C4 Miscellaneous Test Crossmatch See Detail 11/25/16 11/25/16 11/25/16 00:03 04:42 04:42 WBC RBC 3.03 L Hgb 8.6 L Hct 25.3 L MCV MCH MCHC RDW 16.2 H Plt Count Lymph % (Auto) [place] % (Auto) 8.1 H Lymph # [place] # Baso # Seg Neutrophils % 71.3 H Seg Neuts % (Manual) Lymphocytes % (Manual) Monocytes % (Manual) Eosinophils % (Manual) Basophils % (Manual) Nucleated RBC % Seg Neutrophils # Seg Neutrophils # Man Lymphocytes # (Manual) Monocytes # (Manual) Eosinophils # (Manual) Basophils # (Manual) PT INR Fibrinogen dRVVT Confirm Interp Factor V Activity POC ABG pH POC ABG pCO2 POC ABG pO2 ABG pO2 ABG HCO3 ABG Base Excess ABG Hemoglobin Oxyhemoglobin Sodium Potassium Chloride Carbon Dioxide BUN 61 H Creatinine 3.0 H Glucose 102 H POC Glucose 113 H Lactic Acid Calcium 8.2 L Phosphorus Magnesium Direct Bilirubin AST ALT Alkaline Phosphatase 142 H Lactate Dehydrogenase Troponin T C-Reactive Protein Total Protein 5.7 L Albumin 1.5 L Prealbumin Triglycerides Cholesterol LDL Cholesterol Direct HDL Cholesterol PTH Intact Urine pH Urine WBC (Auto) Urine Creatinine Urine Total Protein Fluid Total Protein Vancomycin Trough Rheumatoid Factor Complement C4 Miscellaneous Test Crossmatch 11/25/16 11/25/16 11/25/16 05:12 11:31 14:12 WBC RBC Hgb Hct MCV MCH MCHC RDW Plt Count Lymph % (Auto) [place] % (Auto) Lymph # [place] # Baso # Seg Neutrophils % Seg Neuts % (Manual) Lymphocytes % (Manual) Monocytes % (Manual) Eosinophils % (Manual) Basophils % (Manual) Nucleated RBC % Seg Neutrophils # Seg Neutrophils # Man Lymphocytes # (Manual) Monocytes # (Manual) Eosinophils # (Manual) Basophils # (Manual) PT INR Fibrinogen dRVVT Confirm Interp Factor V Activity POC ABG pH 7.487 H POC ABG pCO2 POC ABG pO2 153 H ABG pO2 ABG HCO3 ABG Base Excess ABG Hemoglobin Oxyhemoglobin Sodium Potassium Chloride Carbon Dioxide BUN Creatinine Glucose POC Glucose 131 H 140 H Lactic Acid Calcium Phosphorus Magnesium Direct Bilirubin AST ALT Alkaline Phosphatase Lactate Dehydrogenase Troponin T C-Reactive Protein Total Protein Albumin Prealbumin Triglycerides Cholesterol LDL Cholesterol Direct HDL Cholesterol PTH Intact Urine pH Urine WBC (Auto) Urine Creatinine Urine Total Protein Fluid Total Protein Vancomycin Trough Rheumatoid Factor Complement C4 Miscellaneous Test Crossmatch 11/25/16 11/26/16 11/26/16 17:23 00:09 05:13 WBC RBC 2.94 L Hgb 8.4 L Hct 24.6 L MCV MCH MCHC RDW 16.4 H Plt Count Lymph % (Auto) [place] % (Auto) 12.3 H Lymph # [place] # 1.1 H Baso # Seg Neutrophils % Seg Neuts % (Manual) Lymphocytes % (Manual) Monocytes % (Manual) Eosinophils % (Manual) Basophils % (Manual) Nucleated RBC % Seg Neutrophils # Seg Neutrophils # Man Lymphocytes # (Manual) Monocytes # (Manual) Eosinophils # (Manual) Basophils # (Manual) PT INR Fibrinogen dRVVT Confirm Interp Factor V Activity POC ABG pH POC ABG pCO2 POC ABG pO2 ABG pO2 ABG HCO3 ABG Base Excess ABG Hemoglobin Oxyhemoglobin Sodium Potassium Chloride Carbon Dioxide BUN Creatinine Glucose POC Glucose 146 H 112 H Lactic Acid Calcium Phosphorus Magnesium Direct Bilirubin AST ALT Alkaline Phosphatase Lactate Dehydrogenase Troponin T C-Reactive Protein Total Protein Albumin Prealbumin Triglycerides Cholesterol LDL Cholesterol Direct HDL Cholesterol PTH Intact Urine pH Urine WBC (Auto) Urine Creatinine Urine Total Protein Fluid Total Protein Vancomycin Trough Rheumatoid Factor Complement C4 Miscellaneous Test Crossmatch 11/26/16 11/26/16 11/26/16 05:13 05:28 11:53 WBC RBC Hgb Hct MCV MCH MCHC RDW Plt Count Lymph % (Auto) [place] % (Auto) Lymph # [place] # Baso # Seg Neutrophils % Seg Neuts % (Manual) Lymphocytes % (Manual) Monocytes % (Manual) Eosinophils % (Manual) Basophils % (Manual) Nucleated RBC % Seg Neutrophils # Seg Neutrophils # Man Lymphocytes # (Manual) Monocytes # (Manual) Eosinophils # (Manual) Basophils # (Manual) PT INR Fibrinogen dRVVT Confirm Interp Factor V Activity POC ABG pH POC ABG pCO2 POC ABG pO2 ABG pO2 ABG HCO3 ABG Base Excess ABG Hemoglobin Oxyhemoglobin Sodium Potassium Chloride 97.8 L Carbon Dioxide BUN 37 H Creatinine 2.0 H Glucose 109 H POC Glucose 117 H 111 H Lactic Acid Calcium 7.9 L Phosphorus 1.80 L D Magnesium Direct Bilirubin AST ALT Alkaline Phosphatase Lactate Dehydrogenase Troponin T C-Reactive Protein Total Protein Albumin Prealbumin Triglycerides Cholesterol LDL Cholesterol Direct HDL Cholesterol PTH Intact Urine pH Urine WBC (Auto) Urine Creatinine Urine Total Protein Fluid Total Protein Vancomycin Trough Rheumatoid Factor Complement C4 Miscellaneous Test Crossmatch 11/26/16 11/27/16 11/27/16 17:14 04:50 06:02 WBC RBC Hgb Hct MCV MCH MCHC RDW Plt Count Lymph % (Auto) [place] % (Auto) Lymph # [place] # Baso # Seg Neutrophils % Seg Neuts % (Manual) Lymphocytes % (Manual) Monocytes % (Manual) Eosinophils % (Manual) Basophils % (Manual) Nucleated RBC % Seg Neutrophils # Seg Neutrophils # Man Lymphocytes # (Manual) Monocytes # (Manual) Eosinophils # (Manual) Basophils # (Manual) PT INR Fibrinogen dRVVT Confirm Interp Factor V Activity POC ABG pH POC ABG pCO2 POC ABG pO2 ABG pO2 75.2 L ABG HCO3 26.4 H ABG Base Excess ABG Hemoglobin 7.6 L Oxyhemoglobin 94.8 L Sodium Potassium Chloride Carbon Dioxide BUN 49 H Creatinine 2.3 H Glucose POC Glucose 115 H Lactic Acid Calcium Phosphorus 1.50 L Magnesium Direct Bilirubin AST ALT Alkaline Phosphatase Lactate Dehydrogenase Troponin T C-Reactive Protein Total Protein Albumin Prealbumin Triglycerides Cholesterol LDL Cholesterol Direct HDL Cholesterol PTH Intact Urine pH Urine WBC (Auto) Urine Creatinine Urine Total Protein Fluid Total Protein Vancomycin Trough Rheumatoid Factor Complement C4 Miscellaneous Test Crossmatch 11/27/16 11/27/16 11/27/16 06:02 11:25 17:25 WBC 11.6 H RBC 2.75 L Hgb 7.6 L Hct 23.4 L MCV MCH MCHC RDW 16.5 H Plt Count Lymph % (Auto) [place] % (Auto) Lymph # [place] # Baso # Seg Neutrophils % Seg Neuts % (Manual) Lymphocytes % (Manual) Monocytes % (Manual) Eosinophils % (Manual) Basophils % (Manual) Nucleated RBC % Seg Neutrophils # Seg Neutrophils # Man Lymphocytes # (Manual) Monocytes # (Manual) Eosinophils # (Manual) Basophils # (Manual) PT INR Fibrinogen dRVVT Confirm Interp Factor V Activity POC ABG pH POC ABG pCO2 POC ABG pO2 ABG pO2 ABG HCO3 ABG Base Excess ABG Hemoglobin Oxyhemoglobin Sodium Potassium Chloride Carbon Dioxide BUN Creatinine Glucose POC Glucose 114 H 126 H Lactic Acid Calcium Phosphorus Magnesium Direct Bilirubin AST ALT Alkaline Phosphatase Lactate Dehydrogenase Troponin T C-Reactive Protein Total Protein Albumin Prealbumin Triglycerides Cholesterol LDL Cholesterol Direct HDL Cholesterol PTH Intact Urine pH Urine WBC (Auto) Urine Creatinine Urine Total Protein Fluid Total Protein Vancomycin Trough Rheumatoid Factor Complement C4 Miscellaneous Test Crossmatch 11/28/16 11/28/16 11/28/16 04:45 05:33 05:44 WBC RBC Hgb Hct MCV MCH MCHC RDW Plt Count Lymph % (Auto) [place] % (Auto) Lymph # [place] # Baso # Seg Neutrophils % Seg Neuts % (Manual) Lymphocytes % (Manual) Monocytes % (Manual) Eosinophils % (Manual) Basophils % (Manual) Nucleated RBC % Seg Neutrophils # Seg Neutrophils # Man Lymphocytes # (Manual) Monocytes # (Manual) Eosinophils # (Manual) Basophils # (Manual) PT INR Fibrinogen dRVVT Confirm Interp Factor V Activity POC ABG pH POC ABG pCO2 POC ABG pO2 ABG pO2 99.3 H ABG HCO3 ABG Base Excess ABG Hemoglobin 8.3 L Oxyhemoglobin Sodium Potassium Chloride Carbon Dioxide BUN 63 H Creatinine 2.4 H Glucose 102 H POC Glucose 108 H Lactic Acid Calcium Phosphorus 1.80 L Magnesium Direct Bilirubin AST ALT Alkaline Phosphatase Lactate Dehydrogenase Troponin T C-Reactive Protein Total Protein Albumin Prealbumin Triglycerides Cholesterol LDL Cholesterol Direct HDL Cholesterol PTH Intact Urine pH Urine WBC (Auto) Urine Creatinine Urine Total Protein Fluid Total Protein Vancomycin Trough Rheumatoid Factor Complement C4 Miscellaneous Test Crossmatch 11/28/16 11/28/16 11/28/16 12:31 16:09 23:46 WBC RBC Hgb Hct MCV MCH MCHC RDW Plt Count Lymph % (Auto) [place] % (Auto) Lymph # [place] # Baso # Seg Neutrophils % Seg Neuts % (Manual) Lymphocytes % (Manual) Monocytes % (Manual) Eosinophils % (Manual) Basophils % (Manual) Nucleated RBC % Seg Neutrophils # Seg Neutrophils # Man Lymphocytes # (Manual) Monocytes # (Manual) Eosinophils # (Manual) Basophils # (Manual) PT INR Fibrinogen dRVVT Confirm Interp Factor V Activity POC ABG pH POC ABG pCO2 POC ABG pO2 ABG pO2 ABG HCO3 ABG Base Excess ABG Hemoglobin Oxyhemoglobin Sodium Potassium Chloride Carbon Dioxide BUN Creatinine Glucose POC Glucose 126 H 111 H 119 H Lactic Acid Calcium Phosphorus Magnesium Direct Bilirubin AST ALT Alkaline Phosphatase Lactate Dehydrogenase Troponin T C-Reactive Protein Total Protein Albumin Prealbumin Triglycerides Cholesterol LDL Cholesterol Direct HDL Cholesterol PTH Intact Urine pH Urine WBC (Auto) Urine Creatinine Urine Total Protein Fluid Total Protein Vancomycin Trough Rheumatoid Factor Complement C4 Miscellaneous Test Crossmatch 11/29/16 11/29/16 11/29/16 03:33 04:52 05:10 WBC RBC Hgb Hct MCV MCH MCHC RDW Plt Count Lymph % (Auto) [place] % (Auto) Lymph # [place] # Baso # Seg Neutrophils % Seg Neuts % (Manual) Lymphocytes % (Manual) Monocytes % (Manual) Eosinophils % (Manual) Basophils % (Manual) Nucleated RBC % Seg Neutrophils # Seg Neutrophils # Man Lymphocytes # (Manual) Monocytes # (Manual) Eosinophils # (Manual) Basophils # (Manual) PT INR Fibrinogen dRVVT Confirm Interp Factor V Activity POC ABG pH POC ABG pCO2 POC ABG pO2 ABG pO2 ABG HCO3 ABG Base Excess ABG Hemoglobin 7.0 L Oxyhemoglobin 94.9 L Sodium Potassium Chloride Carbon Dioxide BUN 73 H Creatinine 2.7 H Glucose POC Glucose 108 H Lactic Acid Calcium Phosphorus Magnesium Direct Bilirubin AST ALT Alkaline Phosphatase Lactate Dehydrogenase Troponin T C-Reactive Protein Total Protein Albumin Prealbumin Triglycerides Cholesterol LDL Cholesterol Direct HDL Cholesterol PTH Intact Urine pH Urine WBC (Auto) Urine Creatinine Urine Total Protein Fluid Total Protein Vancomycin Trough Rheumatoid Factor Complement C4 Miscellaneous Test Crossmatch 11/29/16 11/29/16 11/29/16 12:16 18:05 23:46 WBC RBC Hgb Hct MCV MCH MCHC RDW Plt Count Lymph % (Auto) [place] % (Auto) Lymph # [place] # Baso # Seg Neutrophils % Seg Neuts % (Manual) Lymphocytes % (Manual) Monocytes % (Manual) Eosinophils % (Manual) Basophils % (Manual) Nucleated RBC % Seg Neutrophils # Seg Neutrophils # Man Lymphocytes # (Manual) Monocytes # (Manual) Eosinophils # (Manual) Basophils # (Manual) PT INR Fibrinogen dRVVT Confirm Interp Factor V Activity POC ABG pH POC ABG pCO2 POC ABG pO2 ABG pO2 ABG HCO3 ABG Base Excess ABG Hemoglobin Oxyhemoglobin Sodium Potassium Chloride Carbon Dioxide BUN Creatinine Glucose POC Glucose 133 H 146 H 141 H Lactic Acid Calcium Phosphorus Magnesium Direct Bilirubin AST ALT Alkaline Phosphatase Lactate Dehydrogenase Troponin T C-Reactive Protein Total Protein Albumin Prealbumin Triglycerides Cholesterol LDL Cholesterol Direct HDL Cholesterol PTH Intact Urine pH Urine WBC (Auto) Urine Creatinine Urine Total Protein Fluid Total Protein Vancomycin Trough Rheumatoid Factor Complement C4 Miscellaneous Test Crossmatch 11/30/16 11/30/16 11/30/16 04:17 04:17 04:32 WBC 12.0 H RBC 2.80 L Hgb 7.8 L Hct 23.6 L MCV MCH MCHC RDW 16.6 H Plt Count Lymph % (Auto) [place] % (Auto) 11.3 H Lymph # [place] # 1.4 H Baso # Seg Neutrophils % Seg Neuts % (Manual) Lymphocytes % (Manual) Monocytes % (Manual) Eosinophils % (Manual) Basophils % (Manual) Nucleated RBC % Seg Neutrophils # 8.2 H Seg Neutrophils # Man Lymphocytes # (Manual) Monocytes # (Manual) Eosinophils # (Manual) Basophils # (Manual) PT INR Fibrinogen dRVVT Confirm Interp Factor V Activity POC ABG pH POC ABG pCO2 POC ABG pO2 ABG pO2 ABG HCO3 ABG Base Excess ABG Hemoglobin Oxyhemoglobin Sodium 169 H* D Potassium 5.1 H Chloride 121.5 H Carbon Dioxide BUN 34 H Creatinine 1.3 H D Glucose 133 H POC Glucose 131 H Lactic Acid Calcium 10.3 H Phosphorus Magnesium Direct Bilirubin AST ALT Alkaline Phosphatase Lactate Dehydrogenase Troponin T C-Reactive Protein Total Protein Albumin Prealbumin Triglycerides Cholesterol LDL Cholesterol Direct HDL Cholesterol PTH Intact Urine pH Urine WBC (Auto) Urine Creatinine Urine Total Protein Fluid Total Protein Vancomycin Trough Rheumatoid Factor Complement C4 Miscellaneous Test Crossmatch 11/30/16 11/30/16 11/30/16 05:45 11:10 17:26 WBC RBC Hgb Hct MCV MCH MCHC RDW Plt Count Lymph % (Auto) [place] % (Auto) Lymph # [place] # Baso # Seg Neutrophils % Seg Neuts % (Manual) Lymphocytes % (Manual) Monocytes % (Manual) Eosinophils % (Manual) Basophils % (Manual) Nucleated RBC % Seg Neutrophils # Seg Neutrophils # Man Lymphocytes # (Manual) Monocytes # (Manual) Eosinophils # (Manual) Basophils # (Manual) PT INR Fibrinogen dRVVT Confirm Interp Factor V Activity POC ABG pH POC ABG pCO2 POC ABG pO2 ABG pO2 ABG HCO3 ABG Base Excess ABG Hemoglobin Oxyhemoglobin Sodium Potassium Chloride Carbon Dioxide BUN 45 H Creatinine 1.6 H Glucose 131 H POC Glucose 146 H 134 H Lactic Acid Calcium Phosphorus Magnesium Direct Bilirubin AST ALT Alkaline Phosphatase Lactate Dehydrogenase Troponin T C-Reactive Protein Total Protein Albumin Prealbumin Triglycerides Cholesterol LDL Cholesterol Direct HDL Cholesterol PTH Intact Urine pH Urine WBC (Auto) Urine Creatinine Urine Total Protein Fluid Total Protein Vancomycin Trough Rheumatoid Factor Complement C4 Miscellaneous Test Crossmatch 11/30/16 12/01/16 12/01/16 23:35 00:06 03:35 WBC RBC Hgb Hct MCV MCH MCHC RDW Plt Count Lymph % (Auto) [place] % (Auto) Lymph # [place] # Baso # Seg Neutrophils % Seg Neuts % (Manual) Lymphocytes % (Manual) Monocytes % (Manual) Eosinophils % (Manual) Basophils % (Manual) Nucleated RBC % Seg Neutrophils # Seg Neutrophils # Man Lymphocytes # (Manual) Monocytes # (Manual) Eosinophils # (Manual) Basophils # (Manual) PT INR Fibrinogen dRVVT Confirm Interp Factor V Activity POC ABG pH POC ABG pCO2 POC ABG pO2 ABG pO2 ABG HCO3 ABG Base Excess ABG Hemoglobin 6.9 L Oxyhemoglobin Sodium Potassium Chloride Carbon Dioxide BUN 58 H Creatinine 1.8 H Glucose 146 H POC Glucose 151 H Lactic Acid Calcium Phosphorus Magnesium Direct Bilirubin AST ALT Alkaline Phosphatase Lactate Dehydrogenase Troponin T C-Reactive Protein Total Protein Albumin Prealbumin Triglycerides Cholesterol LDL Cholesterol Direct HDL Cholesterol PTH Intact Urine pH Urine WBC (Auto) Urine Creatinine Urine Total Protein Fluid Total Protein Vancomycin Trough Rheumatoid Factor Complement C4 Miscellaneous Test Crossmatch 12/01/16 12/01/16 12/01/16 03:35 05:47 11:52 WBC 12.3 H RBC 2.82 L Hgb 7.8 L Hct 23.7 L MCV MCH MCHC RDW 16.7 H Plt Count Lymph % (Auto) [place] % (Auto) 9.8 H Lymph # [place] # 1.2 H Baso # Seg Neutrophils % Seg Neuts % (Manual) Lymphocytes % (Manual) Monocytes % (Manual) Eosinophils % (Manual) Basophils % (Manual) Nucleated RBC % Seg Neutrophils # 8.4 H Seg Neutrophils # Man Lymphocytes # (Manual) Monocytes # (Manual) Eosinophils # (Manual) Basophils # (Manual) PT INR Fibrinogen dRVVT Confirm Interp Factor V Activity POC ABG pH POC ABG pCO2 POC ABG pO2 ABG pO2 ABG HCO3 ABG Base Excess ABG Hemoglobin Oxyhemoglobin Sodium Potassium Chloride Carbon Dioxide BUN Creatinine Glucose POC Glucose 152 H 152 H Lactic Acid Calcium Phosphorus Magnesium Direct Bilirubin AST ALT Alkaline Phosphatase Lactate Dehydrogenase Troponin T C-Reactive Protein Total Protein Albumin Prealbumin Triglycerides Cholesterol LDL Cholesterol Direct HDL Cholesterol PTH Intact Urine pH Urine WBC (Auto) Urine Creatinine Urine Total Protein Fluid Total Protein Vancomycin Trough Rheumatoid Factor Complement C4 Miscellaneous Test Crossmatch 12/01/16 12/01/16 12/02/16 17:40 23:41 05:00 WBC RBC Hgb Hct MCV MCH MCHC RDW Plt Count Lymph % (Auto) [place] % (Auto) Lymph # [place] # Baso # Seg Neutrophils % Seg Neuts % (Manual) Lymphocytes % (Manual) Monocytes % (Manual) Eosinophils % (Manual) Basophils % (Manual) Nucleated RBC % Seg Neutrophils # Seg Neutrophils # Man Lymphocytes # (Manual) Monocytes # (Manual) Eosinophils # (Manual) Basophils # (Manual) PT INR Fibrinogen dRVVT Confirm Interp Factor V Activity POC ABG pH POC ABG pCO2 POC ABG pO2 ABG pO2 ABG HCO3 ABG Base Excess ABG Hemoglobin Oxyhemoglobin Sodium Potassium Chloride Carbon Dioxide BUN 45 H Creatinine Glucose 115 H POC Glucose 140 H 144 H Lactic Acid Calcium Phosphorus Magnesium Direct Bilirubin AST ALT Alkaline Phosphatase Lactate Dehydrogenase Troponin T C-Reactive Protein Total Protein Albumin Prealbumin Triglycerides Cholesterol LDL Cholesterol Direct HDL Cholesterol PTH Intact Urine pH Urine WBC (Auto) Urine Creatinine Urine Total Protein Fluid Total Protein Vancomycin Trough Rheumatoid Factor Complement C4 Miscellaneous Test Crossmatch 12/02/16 12/02/16 12/02/16 05:31 11:20 17:38 WBC RBC Hgb Hct MCV MCH MCHC RDW Plt Count Lymph % (Auto) [place] % (Auto) Lymph # [place] # Baso # Seg Neutrophils % Seg Neuts % (Manual) Lymphocytes % (Manual) Monocytes % (Manual) Eosinophils % (Manual) Basophils % (Manual) Nucleated RBC % Seg Neutrophils # Seg Neutrophils # Man Lymphocytes # (Manual) Monocytes # (Manual) Eosinophils # (Manual) Basophils # (Manual) PT INR Fibrinogen dRVVT Confirm Interp Factor V Activity POC ABG pH POC ABG pCO2 POC ABG pO2 ABG pO2 ABG HCO3 ABG Base Excess ABG Hemoglobin Oxyhemoglobin Sodium Potassium Chloride Carbon Dioxide BUN Creatinine Glucose POC Glucose 136 H 177 H 139 H Lactic Acid Calcium Phosphorus Magnesium Direct Bilirubin AST ALT Alkaline Phosphatase Lactate Dehydrogenase Troponin T C-Reactive Protein Total Protein Albumin Prealbumin Triglycerides Cholesterol LDL Cholesterol Direct HDL Cholesterol PTH Intact Urine pH Urine WBC (Auto) Urine Creatinine Urine Total Protein Fluid Total Protein Vancomycin Trough Rheumatoid Factor Complement C4 Miscellaneous Test Crossmatch 12/02/16 12/03/16 12/03/16 23:43 04:00 04:00 WBC 20.4 H RBC 2.74 L Hgb 7.4 L Hct 23.6 L MCV MCH 27 L MCHC RDW 17.1 H Plt Count Lymph % (Auto) [place] % (Auto) Lymph # [place] # Baso # Seg Neutrophils % Seg Neuts % (Manual) 31.0 L Lymphocytes % (Manual) Monocytes % (Manual) Eosinophils % (Manual) Basophils % (Manual) Nucleated RBC % Seg Neutrophils # Seg Neutrophils # Man Lymphocytes # (Manual) Monocytes # (Manual) Eosinophils # (Manual) Basophils # (Manual) PT INR Fibrinogen dRVVT Confirm Interp Factor V Activity POC ABG pH POC ABG pCO2 POC ABG pO2 ABG pO2 ABG HCO3 ABG Base Excess ABG Hemoglobin Oxyhemoglobin Sodium Potassium Chloride Carbon Dioxide BUN 61 H Creatinine 1.6 H Glucose 119 H POC Glucose 158 H Lactic Acid Calcium Phosphorus Magnesium Direct Bilirubin AST ALT Alkaline Phosphatase Lactate Dehydrogenase Troponin T C-Reactive Protein Total Protein Albumin Prealbumin Triglycerides Cholesterol LDL Cholesterol Direct HDL Cholesterol PTH Intact Urine pH Urine WBC (Auto) Urine Creatinine Urine Total Protein Fluid Total Protein Vancomycin Trough Rheumatoid Factor Complement C4 Miscellaneous Test Crossmatch 12/03/16 12/03/16 12/03/16 05:02 12:11 18:16 WBC RBC Hgb Hct MCV MCH MCHC RDW Plt Count Lymph % (Auto) [place] % (Auto) Lymph # [place] # Baso # Seg Neutrophils % Seg Neuts % (Manual) Lymphocytes % (Manual) Monocytes % (Manual) Eosinophils % (Manual) Basophils % (Manual) Nucleated RBC % Seg Neutrophils # Seg Neutrophils # Man Lymphocytes # (Manual) Monocytes # (Manual) Eosinophils # (Manual) Basophils # (Manual) PT INR Fibrinogen dRVVT Confirm Interp Factor V Activity POC ABG pH POC ABG pCO2 POC ABG pO2 ABG pO2 ABG HCO3 ABG Base Excess ABG Hemoglobin Oxyhemoglobin Sodium Potassium Chloride Carbon Dioxide BUN Creatinine Glucose POC Glucose 146 H 157 H 124 H Lactic Acid Calcium Phosphorus Magnesium Direct Bilirubin AST ALT Alkaline Phosphatase Lactate Dehydrogenase Troponin T C-Reactive Protein Total Protein Albumin Prealbumin Triglycerides Cholesterol LDL Cholesterol Direct HDL Cholesterol PTH Intact Urine pH Urine WBC (Auto) Urine Creatinine Urine Total Protein Fluid Total Protein Vancomycin Trough Rheumatoid Factor Complement C4 Miscellaneous Test Crossmatch 12/03/16 12/04/16 12/04/16 23:41 04:00 04:45 WBC RBC Hgb Hct MCV MCH MCHC RDW Plt Count Lymph % (Auto) [place] % (Auto) Lymph # [place] # Baso # Seg Neutrophils % Seg Neuts % (Manual) Lymphocytes % (Manual) Monocytes % (Manual) Eosinophils % (Manual) Basophils % (Manual) Nucleated RBC % Seg Neutrophils # Seg Neutrophils # Man Lymphocytes # (Manual) Monocytes # (Manual) Eosinophils # (Manual) Basophils # (Manual) PT INR Fibrinogen dRVVT Confirm Interp Factor V Activity POC ABG pH POC ABG pCO2 POC ABG pO2 ABG pO2 ABG HCO3 ABG Base Excess ABG Hemoglobin Oxyhemoglobin Sodium Potassium Chloride Carbon Dioxide BUN 76 H Creatinine 1.6 H Glucose POC Glucose 130 H 136 H Lactic Acid Calcium Phosphorus Magnesium Direct Bilirubin AST ALT Alkaline Phosphatase 155 H Lactate Dehydrogenase Troponin T C-Reactive Protein Total Protein 5.5 L Albumin 1.5 L Prealbumin Triglycerides Cholesterol LDL Cholesterol Direct HDL Cholesterol PTH Intact Urine pH Urine WBC (Auto) Urine Creatinine Urine Total Protein Fluid Total Protein Vancomycin Trough Rheumatoid Factor Complement C4 Miscellaneous Test Crossmatch 12/04/16 12/04/16 12/05/16 12:08 17:23 00:10 WBC RBC Hgb Hct MCV MCH MCHC RDW Plt Count Lymph % (Auto) [place] % (Auto) Lymph # [place] # Baso # Seg Neutrophils % Seg Neuts % (Manual) Lymphocytes % (Manual) Monocytes % (Manual) Eosinophils % (Manual) Basophils % (Manual) Nucleated RBC % Seg Neutrophils # Seg Neutrophils # Man Lymphocytes # (Manual) Monocytes # (Manual) Eosinophils # (Manual) Basophils # (Manual) PT INR Fibrinogen dRVVT Confirm Interp Factor V Activity POC ABG pH POC ABG pCO2 POC ABG pO2 ABG pO2 ABG HCO3 ABG Base Excess ABG Hemoglobin Oxyhemoglobin Sodium Potassium Chloride Carbon Dioxide BUN Creatinine Glucose POC Glucose 114 H 129 H 124 H Lactic Acid Calcium Phosphorus Magnesium Direct Bilirubin AST ALT Alkaline Phosphatase Lactate Dehydrogenase Troponin T C-Reactive Protein Total Protein Albumin Prealbumin Triglycerides Cholesterol LDL Cholesterol Direct HDL Cholesterol PTH Intact Urine pH Urine WBC (Auto) Urine Creatinine Urine Total Protein Fluid Total Protein Vancomycin Trough Rheumatoid Factor Complement C4 Miscellaneous Test Crossmatch 12/05/16 12/05/16 12/05/16 05:00 05:00 05:18 WBC RBC Hgb Hct MCV MCH MCHC RDW Plt Count Lymph % (Auto) [place] % (Auto) Lymph # [place] # Baso # Seg Neutrophils % Seg Neuts % (Manual) Lymphocytes % (Manual) Monocytes % (Manual) Eosinophils % (Manual) Basophils % (Manual) Nucleated RBC % Seg Neutrophils # Seg Neutrophils # Man Lymphocytes # (Manual) Monocytes # (Manual) Eosinophils # (Manual) Basophils # (Manual) PT INR Fibrinogen dRVVT Confirm Interp Factor V Activity POC ABG pH POC ABG pCO2 POC ABG pO2 ABG pO2 ABG HCO3 ABG Base Excess ABG Hemoglobin Oxyhemoglobin Sodium Potassium Chloride Carbon Dioxide 21 L BUN 85 H Creatinine 1.9 H Glucose 131 H POC Glucose 154 H Lactic Acid Calcium Phosphorus Magnesium Direct Bilirubin AST ALT Alkaline Phosphatase Lactate Dehydrogenase Troponin T C-Reactive Protein 19.30 H Total Protein Albumin Prealbumin Triglycerides Cholesterol LDL Cholesterol Direct HDL Cholesterol PTH Intact Urine pH Urine WBC (Auto) Urine Creatinine Urine Total Protein Fluid Total Protein Vancomycin Trough Rheumatoid Factor Complement C4 Miscellaneous Test Crossmatch 12/05/16 12/05/16 12/05/16 11:43 17:46 23:25 WBC RBC Hgb Hct MCV MCH MCHC RDW Plt Count Lymph % (Auto) [place] % (Auto) Lymph # [place] # Baso # Seg Neutrophils % Seg Neuts % (Manual) Lymphocytes % (Manual) Monocytes % (Manual) Eosinophils % (Manual) Basophils % (Manual) Nucleated RBC % Seg Neutrophils # Seg Neutrophils # Man Lymphocytes # (Manual) Monocytes # (Manual) Eosinophils # (Manual) Basophils # (Manual) PT INR Fibrinogen dRVVT Confirm Interp Factor V Activity POC ABG pH POC ABG pCO2 POC ABG pO2 ABG pO2 ABG HCO3 ABG Base Excess ABG Hemoglobin Oxyhemoglobin Sodium Potassium Chloride Carbon Dioxide BUN Creatinine Glucose POC Glucose 117 H 113 H 111 H Lactic Acid Calcium Phosphorus Magnesium Direct Bilirubin AST ALT Alkaline Phosphatase Lactate Dehydrogenase Troponin T C-Reactive Protein Total Protein Albumin Prealbumin Triglycerides Cholesterol LDL Cholesterol Direct HDL Cholesterol PTH Intact Urine pH Urine WBC (Auto) Urine Creatinine Urine Total Protein Fluid Total Protein Vancomycin Trough Rheumatoid Factor Complement C4 Miscellaneous Test Crossmatch 12/05/16 12/06/16 12/06/16 Unknown 04:58 06:00 WBC RBC Hgb Hct MCV MCH MCHC RDW Plt Count Lymph % (Auto) [place] % (Auto) Lymph # [place] # Baso # Seg Neutrophils % Seg Neuts % (Manual) Lymphocytes % (Manual) Monocytes % (Manual) Eosinophils % (Manual) Basophils % (Manual) Nucleated RBC % Seg Neutrophils # Seg Neutrophils # Man Lymphocytes # (Manual) Monocytes # (Manual) Eosinophils # (Manual) Basophils # (Manual) PT INR Fibrinogen dRVVT Confirm Interp Factor V Activity POC ABG pH POC ABG pCO2 POC ABG pO2 ABG pO2 75.2 L ABG HCO3 ABG Base Excess -3.4 L ABG Hemoglobin 7.4 L Oxyhemoglobin 94.5 L Sodium Potassium Chloride Carbon Dioxide 20 L BUN 99 H Creatinine 2.1 H Glucose 126 H POC Glucose 145 H Lactic Acid Calcium Phosphorus 4.80 H Magnesium Direct Bilirubin AST ALT Alkaline Phosphatase Lactate Dehydrogenase Troponin T C-Reactive Protein Total Protein Albumin Prealbumin Triglycerides Cholesterol LDL Cholesterol Direct HDL Cholesterol PTH Intact Urine pH Urine WBC (Auto) Urine Creatinine Urine Total Protein Fluid Total Protein Vancomycin Trough Rheumatoid Factor Complement C4 Miscellaneous Test Crossmatch 12/06/16 12/06/16 12/06/16 06:46 11:54 17:55 WBC RBC Hgb 8.3 L Hct 26.4 L MCV MCH MCHC RDW Plt Count Lymph % (Auto) [place] % (Auto) Lymph # [place] # Baso # Seg Neutrophils % Seg Neuts % (Manual) Lymphocytes % (Manual) Monocytes % (Manual) Eosinophils % (Manual) Basophils % (Manual) Nucleated RBC % Seg Neutrophils # Seg Neutrophils # Man Lymphocytes # (Manual) Monocytes # (Manual) Eosinophils # (Manual) Basophils # (Manual) PT INR Fibrinogen dRVVT Confirm Interp Factor V Activity POC ABG pH POC ABG pCO2 POC ABG pO2 ABG pO2 ABG HCO3 ABG Base Excess ABG Hemoglobin Oxyhemoglobin Sodium Potassium Chloride Carbon Dioxide BUN Creatinine Glucose POC Glucose 126 H 157 H Lactic Acid Calcium Phosphorus Magnesium Direct Bilirubin AST ALT Alkaline Phosphatase Lactate Dehydrogenase Troponin T C-Reactive Protein Total Protein Albumin Prealbumin Triglycerides Cholesterol LDL Cholesterol Direct HDL Cholesterol PTH Intact Urine pH Urine WBC (Auto) Urine Creatinine Urine Total Protein Fluid Total Protein Vancomycin Trough Rheumatoid Factor Complement C4 Miscellaneous Test Crossmatch 12/06/16 12/07/16 12/07/16 23:59 05:34 06:30 WBC RBC Hgb Hct MCV MCH MCHC RDW Plt Count Lymph % (Auto) [place] % (Auto) Lymph # [place] # Baso # Seg Neutrophils % Seg Neuts % (Manual) Lymphocytes % (Manual) Monocytes % (Manual) Eosinophils % (Manual) Basophils % (Manual) Nucleated RBC % Seg Neutrophils # Seg Neutrophils # Man Lymphocytes # (Manual) Monocytes # (Manual) Eosinophils # (Manual) Basophils # (Manual) PT INR Fibrinogen dRVVT Confirm Interp Factor V Activity POC ABG pH POC ABG pCO2 POC ABG pO2 ABG pO2 ABG HCO3 ABG Base Excess ABG Hemoglobin Oxyhemoglobin Sodium Potassium Chloride Carbon Dioxide BUN 67 H Creatinine 1.4 H Glucose 126 H POC Glucose 129 H 129 H Lactic Acid Calcium Phosphorus Magnesium Direct Bilirubin AST ALT Alkaline Phosphatase Lactate Dehydrogenase Troponin T C-Reactive Protein Total Protein Albumin Prealbumin Triglycerides Cholesterol LDL Cholesterol Direct HDL Cholesterol PTH Intact Urine pH Urine WBC (Auto) Urine Creatinine Urine Total Protein Fluid Total Protein Vancomycin Trough Rheumatoid Factor Complement C4 Miscellaneous Test Crossmatch 12/07/16 12/07/16 12/07/16 06:30 08:00 09:45 WBC 18.8 H RBC 2.52 L Hgb 6.9 L 6.8 L Hct 21.2 L 21.1 L MCV MCH 27 L MCHC RDW 18.0 H Plt Count Lymph % (Auto) [place] % (Auto) 9.9 H Lymph # [place] # 1.9 H Baso # Seg Neutrophils % 71.8 H Seg Neuts % (Manual) Lymphocytes % (Manual) Monocytes % (Manual) Eosinophils % (Manual) Basophils % (Manual) Nucleated RBC % Seg Neutrophils # 13.5 H Seg Neutrophils # Man Lymphocytes # (Manual) Monocytes # (Manual) Eosinophils # (Manual) Basophils # (Manual) PT INR Fibrinogen dRVVT Confirm Interp Factor V Activity POC ABG pH POC ABG pCO2 POC ABG pO2 ABG pO2 ABG HCO3 ABG Base Excess ABG Hemoglobin Oxyhemoglobin Sodium Potassium Chloride Carbon Dioxide BUN Creatinine Glucose POC Glucose Lactic Acid Calcium Phosphorus Magnesium Direct Bilirubin AST ALT Alkaline Phosphatase Lactate Dehydrogenase Troponin T C-Reactive Protein Total Protein Albumin Prealbumin Triglycerides Cholesterol LDL Cholesterol Direct HDL Cholesterol PTH Intact Urine pH Urine WBC (Auto) Urine Creatinine Urine Total Protein Fluid Total Protein Vancomycin Trough Rheumatoid Factor Complement C4 Miscellaneous Test Crossmatch See Detail 12/07/16 12/07/16 12/07/16 11:44 18:19 23:59 WBC RBC Hgb Hct MCV MCH MCHC RDW Plt Count Lymph % (Auto) [place] % (Auto) Lymph # [place] # Baso # Seg Neutrophils % Seg Neuts % (Manual) Lymphocytes % (Manual) Monocytes % (Manual) Eosinophils % (Manual) Basophils % (Manual) Nucleated RBC % Seg Neutrophils # Seg Neutrophils # Man Lymphocytes # (Manual) Monocytes # (Manual) Eosinophils # (Manual) Basophils # (Manual) PT INR Fibrinogen dRVVT Confirm Interp Factor V Activity POC ABG pH POC ABG pCO2 POC ABG pO2 ABG pO2 ABG HCO3 ABG Base Excess ABG Hemoglobin Oxyhemoglobin Sodium Potassium Chloride Carbon Dioxide BUN Creatinine Glucose POC Glucose 137 H 138 H 133 H Lactic Acid Calcium Phosphorus Magnesium Direct Bilirubin AST ALT Alkaline Phosphatase Lactate Dehydrogenase Troponin T C-Reactive Protein Total Protein Albumin Prealbumin Triglycerides Cholesterol LDL Cholesterol Direct HDL Cholesterol PTH Intact Urine pH Urine WBC (Auto) Urine Creatinine Urine Total Protein Fluid Total Protein Vancomycin Trough Rheumatoid Factor Complement C4 Miscellaneous Test Crossmatch 12/08/16 12/08/16 12/08/16 05:25 05:30 05:30 WBC 23.8 H RBC 2.88 L Hgb 8.1 L Hct 24.3 L MCV MCH MCHC RDW 16.7 H Plt Count Lymph % (Auto) [place] % (Auto) Lymph # [place] # Baso # Seg Neutrophils % Seg Neuts % (Manual) 76.0 H Lymphocytes % (Manual) 9.0 L Monocytes % (Manual) 9.0 H Eosinophils % (Manual) Basophils % (Manual) Nucleated RBC % Seg Neutrophils # Seg Neutrophils # Man 18.1 H Lymphocytes # (Manual) Monocytes # (Manual) 2.1 H Eosinophils # (Manual) Basophils # (Manual) PT INR Fibrinogen dRVVT Confirm Interp Factor V Activity POC ABG pH POC ABG pCO2 POC ABG pO2 ABG pO2 ABG HCO3 ABG Base Excess ABG Hemoglobin Oxyhemoglobin Sodium Potassium Chloride Carbon Dioxide 21 L BUN 76 H Creatinine 1.6 H Glucose 133 H POC Glucose 177 H Lactic Acid Calcium Phosphorus Magnesium Direct Bilirubin AST ALT Alkaline Phosphatase Lactate Dehydrogenase Troponin T C-Reactive Protein Total Protein Albumin Prealbumin Triglycerides Cholesterol LDL Cholesterol Direct HDL Cholesterol PTH Intact Urine pH Urine WBC (Auto) Urine Creatinine Urine Total Protein Fluid Total Protein Vancomycin Trough Rheumatoid Factor Complement C4 Miscellaneous Test Crossmatch 12/08/16 12/08/16 12/09/16 11:45 18:00 00:00 WBC RBC Hgb Hct MCV MCH MCHC RDW Plt Count Lymph % (Auto) [place] % (Auto) Lymph # [place] # Baso # Seg Neutrophils % Seg Neuts % (Manual) Lymphocytes % (Manual) Monocytes % (Manual) Eosinophils % (Manual) Basophils % (Manual) Nucleated RBC % Seg Neutrophils # Seg Neutrophils # Man Lymphocytes # (Manual) Monocytes # (Manual) Eosinophils # (Manual) Basophils # (Manual) PT INR Fibrinogen dRVVT Confirm Interp Factor V Activity POC ABG pH POC ABG pCO2 POC ABG pO2 ABG pO2 ABG HCO3 ABG Base Excess ABG Hemoglobin Oxyhemoglobin Sodium Potassium Chloride Carbon Dioxide BUN Creatinine Glucose POC Glucose 163 H 123 H 137 H Lactic Acid Calcium Phosphorus Magnesium Direct Bilirubin AST ALT Alkaline Phosphatase Lactate Dehydrogenase Troponin T C-Reactive Protein Total Protein Albumin Prealbumin Triglycerides Cholesterol LDL Cholesterol Direct HDL Cholesterol PTH Intact Urine pH Urine WBC (Auto) Urine Creatinine Urine Total Protein Fluid Total Protein Vancomycin Trough Rheumatoid Factor Complement C4 Miscellaneous Test Crossmatch 12/09/16 12/09/16 12/09/16 05:34 06:00 06:00 WBC 15.5 H RBC 2.87 L Hgb 8.0 L Hct 24.2 L MCV MCH MCHC RDW 17.2 H Plt Count Lymph % (Auto) [place] % (Auto) 11.6 H Lymph # [place] # 1.8 H Baso # Seg Neutrophils % 70.8 H Seg Neuts % (Manual) Lymphocytes % (Manual) Monocytes % (Manual) Eosinophils % (Manual) Basophils % (Manual) Nucleated RBC % Seg Neutrophils # 11.0 H Seg Neutrophils # Man Lymphocytes # (Manual) Monocytes # (Manual) Eosinophils # (Manual) Basophils # (Manual) PT INR Fibrinogen dRVVT Confirm Interp Factor V Activity POC ABG pH POC ABG pCO2 POC ABG pO2 ABG pO2 ABG HCO3 ABG Base Excess ABG Hemoglobin Oxyhemoglobin Sodium Potassium Chloride Carbon Dioxide BUN 51 H Creatinine Glucose 117 H POC Glucose 136 H Lactic Acid Calcium Phosphorus Magnesium Direct Bilirubin AST ALT Alkaline Phosphatase Lactate Dehydrogenase Troponin T C-Reactive Protein Total Protein Albumin Prealbumin Triglycerides Cholesterol LDL Cholesterol Direct HDL Cholesterol PTH Intact Urine pH Urine WBC (Auto) Urine Creatinine Urine Total Protein Fluid Total Protein Vancomycin Trough Rheumatoid Factor Complement C4 Miscellaneous Test Crossmatch 12/09/16 12/09/16 12/09/16 12:29 17:52 23:10 WBC RBC Hgb Hct MCV MCH MCHC RDW Plt Count Lymph % (Auto) [place] % (Auto) Lymph # [place] # Baso # Seg Neutrophils % Seg Neuts % (Manual) Lymphocytes % (Manual) Monocytes % (Manual) Eosinophils % (Manual) Basophils % (Manual) Nucleated RBC % Seg Neutrophils # Seg Neutrophils # Man Lymphocytes # (Manual) Monocytes # (Manual) Eosinophils # (Manual) Basophils # (Manual) PT INR Fibrinogen dRVVT Confirm Interp Factor V Activity POC ABG pH POC ABG pCO2 POC ABG pO2 ABG pO2 ABG HCO3 ABG Base Excess ABG Hemoglobin Oxyhemoglobin Sodium Potassium Chloride Carbon Dioxide BUN Creatinine Glucose POC Glucose 139 H 140 H 129 H Lactic Acid Calcium Phosphorus Magnesium Direct Bilirubin AST ALT Alkaline Phosphatase Lactate Dehydrogenase Troponin T C-Reactive Protein Total Protein Albumin Prealbumin Triglycerides Cholesterol LDL Cholesterol Direct HDL Cholesterol PTH Intact Urine pH Urine WBC (Auto) Urine Creatinine Urine Total Protein Fluid Total Protein Vancomycin Trough Rheumatoid Factor Complement C4 Miscellaneous Test Crossmatch 12/10/16 12/10/16 12/10/16 05:00 05:00 06:54 WBC 15.7 H RBC 2.87 L Hgb 8.2 L Hct 24.4 L MCV MCH MCHC RDW 17.2 H Plt Count Lymph % (Auto) [place] % (Auto) 8.3 H Lymph # [place] # 1.3 H Baso # Seg Neutrophils % 72.8 H Seg Neuts % (Manual) Lymphocytes % (Manual) Monocytes % (Manual) Eosinophils % (Manual) Basophils % (Manual) Nucleated RBC % Seg Neutrophils # 11.4 H Seg Neutrophils # Man Lymphocytes # (Manual) Monocytes # (Manual) Eosinophils # (Manual) Basophils # (Manual) PT INR Fibrinogen dRVVT Confirm Interp Factor V Activity POC ABG pH POC ABG pCO2 POC ABG pO2 ABG pO2 ABG HCO3 ABG Base Excess ABG Hemoglobin Oxyhemoglobin Sodium Potassium Chloride Carbon Dioxide BUN 64 H Creatinine 1.4 H Glucose 134 H POC Glucose 154 H Lactic Acid Calcium Phosphorus Magnesium Direct Bilirubin AST ALT Alkaline Phosphatase Lactate Dehydrogenase Troponin T C-Reactive Protein Total Protein Albumin Prealbumin Triglycerides Cholesterol LDL Cholesterol Direct HDL Cholesterol PTH Intact Urine pH Urine WBC (Auto) Urine Creatinine Urine Total Protein Fluid Total Protein Vancomycin Trough Rheumatoid Factor Complement C4 Miscellaneous Test Crossmatch 12/10/16 12/10/16 12/10/16 11:58 17:29 23:52 WBC RBC Hgb Hct MCV MCH MCHC RDW Plt Count Lymph % (Auto) [place] % (Auto) Lymph # [place] # Baso # Seg Neutrophils % Seg Neuts % (Manual) Lymphocytes % (Manual) Monocytes % (Manual) Eosinophils % (Manual) Basophils % (Manual) Nucleated RBC % Seg Neutrophils # Seg Neutrophils # Man Lymphocytes # (Manual) Monocytes # (Manual) Eosinophils # (Manual) Basophils # (Manual) PT INR Fibrinogen dRVVT Confirm Interp Factor V Activity POC ABG pH POC ABG pCO2 POC ABG pO2 ABG pO2 ABG HCO3 ABG Base Excess ABG Hemoglobin Oxyhemoglobin Sodium Potassium Chloride Carbon Dioxide BUN Creatinine Glucose POC Glucose 144 H 163 H 125 H Lactic Acid Calcium Phosphorus Magnesium Direct Bilirubin AST ALT Alkaline Phosphatase Lactate Dehydrogenase Troponin T C-Reactive Protein Total Protein Albumin Prealbumin Triglycerides Cholesterol LDL Cholesterol Direct HDL Cholesterol PTH Intact Urine pH Urine WBC (Auto) Urine Creatinine Urine Total Protein Fluid Total Protein Vancomycin Trough Rheumatoid Factor Complement C4 Miscellaneous Test Crossmatch 12/11/16 12/11/16 12/11/16 05:38 06:30 06:30 WBC 14.4 H RBC 2.76 L Hgb 7.7 L Hct 23.4 L MCV MCH MCHC RDW 17.2 H Plt Count Lymph % (Auto) [place] % (Auto) 8.8 H Lymph # [place] # 1.3 H Baso # Seg Neutrophils % 72.5 H Seg Neuts % (Manual) Lymphocytes % (Manual) Monocytes % (Manual) Eosinophils % (Manual) Basophils % (Manual) Nucleated RBC % Seg Neutrophils # 10.5 H Seg Neutrophils # Man Lymphocytes # (Manual) Monocytes # (Manual) Eosinophils # (Manual) Basophils # (Manual) PT INR Fibrinogen dRVVT Confirm Interp Factor V Activity POC ABG pH POC ABG pCO2 POC ABG pO2 ABG pO2 ABG HCO3 ABG Base Excess ABG Hemoglobin Oxyhemoglobin Sodium Potassium Chloride Carbon Dioxide BUN 43 H Creatinine Glucose 124 H POC Glucose 141 H Lactic Acid Calcium 8.3 L Phosphorus Magnesium 1.60 L Direct Bilirubin AST ALT Alkaline Phosphatase Lactate Dehydrogenase Troponin T C-Reactive Protein Total Protein Albumin Prealbumin Triglycerides Cholesterol LDL Cholesterol Direct HDL Cholesterol PTH Intact Urine pH Urine WBC (Auto) Urine Creatinine Urine Total Protein Fluid Total Protein Vancomycin Trough Rheumatoid Factor Complement C4 Miscellaneous Test Crossmatch 12/11/16 12/11/16 12/11/16 11:15 17:59 23:48 WBC RBC Hgb Hct MCV MCH MCHC RDW Plt Count Lymph % (Auto) [place] % (Auto) Lymph # [place] # Baso # Seg Neutrophils % Seg Neuts % (Manual) Lymphocytes % (Manual) Monocytes % (Manual) Eosinophils % (Manual) Basophils % (Manual) Nucleated RBC % Seg Neutrophils # Seg Neutrophils # Man Lymphocytes # (Manual) Monocytes # (Manual) Eosinophils # (Manual) Basophils # (Manual) PT INR Fibrinogen dRVVT Confirm Interp Factor V Activity POC ABG pH POC ABG pCO2 POC ABG pO2 ABG pO2 ABG HCO3 ABG Base Excess ABG Hemoglobin Oxyhemoglobin Sodium Potassium Chloride Carbon Dioxide BUN Creatinine Glucose POC Glucose 188 H 106 H 119 H Lactic Acid Calcium Phosphorus Magnesium Direct Bilirubin AST ALT Alkaline Phosphatase Lactate Dehydrogenase Troponin T C-Reactive Protein Total Protein Albumin Prealbumin Triglycerides Cholesterol LDL Cholesterol Direct HDL Cholesterol PTH Intact Urine pH Urine WBC (Auto) Urine Creatinine Urine Total Protein Fluid Total Protein Vancomycin Trough Rheumatoid Factor Complement C4 Miscellaneous Test Crossmatch 12/12/16 12/12/16 12/12/16 05:00 06:01 12:20 WBC 16.7 H RBC 2.87 L Hgb 8.0 L Hct 24.2 L MCV MCH MCHC RDW 17.6 H Plt Count Lymph % (Auto) [place] % (Auto) Lymph # [place] # 1.2 H Baso # Seg Neutrophils % 75.3 H Seg Neuts % (Manual) Lymphocytes % (Manual) Monocytes % (Manual) Eosinophils % (Manual) Basophils % (Manual) Nucleated RBC % Seg Neutrophils # 12.6 H Seg Neutrophils # Man Lymphocytes # (Manual) Monocytes # (Manual) Eosinophils # (Manual) Basophils # (Manual) PT INR Fibrinogen dRVVT Confirm Interp Factor V Activity POC ABG pH POC ABG pCO2 POC ABG pO2 ABG pO2 ABG HCO3 ABG Base Excess ABG Hemoglobin Oxyhemoglobin Sodium Potassium Chloride Carbon Dioxide BUN Creatinine Glucose POC Glucose 134 H 149 H Lactic Acid Calcium Phosphorus Magnesium Direct Bilirubin AST ALT Alkaline Phosphatase Lactate Dehydrogenase Troponin T C-Reactive Protein Total Protein Albumin Prealbumin Triglycerides Cholesterol LDL Cholesterol Direct HDL Cholesterol PTH Intact Urine pH Urine WBC (Auto) Urine Creatinine Urine Total Protein Fluid Total Protein Vancomycin Trough Rheumatoid Factor Complement C4 Miscellaneous Test Crossmatch 12/12/16 12/12/16 12/12/16 17:38 23:01 Unknown WBC RBC Hgb Hct MCV MCH MCHC RDW Plt Count Lymph % (Auto) [place] % (Auto) Lymph # [place] # Baso # Seg Neutrophils % Seg Neuts % (Manual) Lymphocytes % (Manual) Monocytes % (Manual) Eosinophils % (Manual) Basophils % (Manual) Nucleated RBC % Seg Neutrophils # Seg Neutrophils # Man Lymphocytes # (Manual) Monocytes # (Manual) Eosinophils # (Manual) Basophils # (Manual) PT INR Fibrinogen dRVVT Confirm Interp Factor V Activity POC ABG pH POC ABG pCO2 POC ABG pO2 ABG pO2 ABG HCO3 ABG Base Excess ABG Hemoglobin Oxyhemoglobin Sodium Potassium Chloride Carbon Dioxide BUN 60 H Creatinine 1.3 H Glucose 126 H POC Glucose 127 H 144 H Lactic Acid Calcium Phosphorus Magnesium Direct Bilirubin AST ALT Alkaline Phosphatase Lactate Dehydrogenase Troponin T C-Reactive Protein Total Protein Albumin Prealbumin Triglycerides Cholesterol LDL Cholesterol Direct HDL Cholesterol PTH Intact Urine pH Urine WBC (Auto) Urine Creatinine Urine Total Protein Fluid Total Protein Vancomycin Trough Rheumatoid Factor Complement C4 Miscellaneous Test Crossmatch 12/13/16 12/13/16 12/13/16 04:00 04:00 05:19 WBC 18.7 H RBC 2.89 L Hgb 8.3 L Hct 24.6 L MCV MCH MCHC RDW 17.5 H Plt Count Lymph % (Auto) [place] % (Auto) Lymph # [place] # 1.3 H Baso # Seg Neutrophils % 71.5 H Seg Neuts % (Manual) Lymphocytes % (Manual) Monocytes % (Manual) Eosinophils % (Manual) Basophils % (Manual) Nucleated RBC % Seg Neutrophils # 13.4 H Seg Neutrophils # Man Lymphocytes # (Manual) Monocytes # (Manual) Eosinophils # (Manual) Basophils # (Manual) PT INR Fibrinogen dRVVT Confirm Interp Factor V Activity POC ABG pH POC ABG pCO2 POC ABG pO2 ABG pO2 ABG HCO3 ABG Base Excess ABG Hemoglobin Oxyhemoglobin Sodium Potassium Chloride Carbon Dioxide BUN 73 H Creatinine 1.5 H Glucose 141 H POC Glucose 171 H Lactic Acid Calcium Phosphorus Magnesium Direct Bilirubin AST ALT Alkaline Phosphatase Lactate Dehydrogenase Troponin T C-Reactive Protein Total Protein Albumin Prealbumin Triglycerides Cholesterol LDL Cholesterol Direct HDL Cholesterol PTH Intact Urine pH Urine WBC (Auto) Urine Creatinine Urine Total Protein Fluid Total Protein Vancomycin Trough Rheumatoid Factor Complement C4 Miscellaneous Test Crossmatch 12/13/16 12/13/16 12/14/16 12:28 16:48 00:01 WBC RBC Hgb Hct MCV MCH MCHC RDW Plt Count Lymph % (Auto) [place] % (Auto) Lymph # [place] # Baso # Seg Neutrophils % Seg Neuts % (Manual) Lymphocytes % (Manual) Monocytes % (Manual) Eosinophils % (Manual) Basophils % (Manual) Nucleated RBC % Seg Neutrophils # Seg Neutrophils # Man Lymphocytes # (Manual) Monocytes # (Manual) Eosinophils # (Manual) Basophils # (Manual) PT INR Fibrinogen dRVVT Confirm Interp Factor V Activity POC ABG pH POC ABG pCO2 POC ABG pO2 ABG pO2 ABG HCO3 ABG Base Excess ABG Hemoglobin Oxyhemoglobin Sodium Potassium Chloride Carbon Dioxide BUN Creatinine Glucose POC Glucose 206 H 173 H 139 H Lactic Acid Calcium Phosphorus Magnesium Direct Bilirubin AST ALT Alkaline Phosphatase Lactate Dehydrogenase Troponin T C-Reactive Protein Total Protein Albumin Prealbumin Triglycerides Cholesterol LDL Cholesterol Direct HDL Cholesterol PTH Intact Urine pH Urine WBC (Auto) Urine Creatinine Urine Total Protein Fluid Total Protein Vancomycin Trough Rheumatoid Factor Complement C4 Miscellaneous Test Crossmatch 12/14/16 12/14/16 12/14/16 05:16 06:10 11:17 WBC RBC Hgb Hct MCV MCH MCHC RDW Plt Count Lymph % (Auto) [place] % (Auto) Lymph # [place] # Baso # Seg Neutrophils % Seg Neuts % (Manual) Lymphocytes % (Manual) Monocytes % (Manual) Eosinophils % (Manual) Basophils % (Manual) Nucleated RBC % Seg Neutrophils # Seg Neutrophils # Man Lymphocytes # (Manual) Monocytes # (Manual) Eosinophils # (Manual) Basophils # (Manual) PT INR Fibrinogen dRVVT Confirm Interp Factor V Activity POC ABG pH POC ABG pCO2 POC ABG pO2 ABG pO2 ABG HCO3 ABG Base Excess ABG Hemoglobin Oxyhemoglobin Sodium Potassium Chloride Carbon Dioxide BUN 57 H Creatinine 1.4 H Glucose 135 H POC Glucose 158 H 137 H Lactic Acid Calcium Phosphorus Magnesium Direct Bilirubin AST ALT Alkaline Phosphatase Lactate Dehydrogenase Troponin T C-Reactive Protein Total Protein Albumin Prealbumin Triglycerides Cholesterol LDL Cholesterol Direct HDL Cholesterol PTH Intact Urine pH Urine WBC (Auto) Urine Creatinine Urine Total Protein Fluid Total Protein Vancomycin Trough Rheumatoid Factor Complement C4 Miscellaneous Test Crossmatch 12/14/16 12/14/16 12/15/16 17:52 23:27 04:00 WBC RBC Hgb Hct MCV MCH MCHC RDW Plt Count Lymph % (Auto) [place] % (Auto) Lymph # [place] # Baso # Seg Neutrophils % Seg Neuts % (Manual) Lymphocytes % (Manual) Monocytes % (Manual) Eosinophils % (Manual) Basophils % (Manual) Nucleated RBC % Seg Neutrophils # Seg Neutrophils # Man Lymphocytes # (Manual) Monocytes # (Manual) Eosinophils # (Manual) Basophils # (Manual) PT INR Fibrinogen dRVVT Confirm Interp Factor V Activity POC ABG pH POC ABG pCO2 POC ABG pO2 ABG pO2 ABG HCO3 ABG Base Excess ABG Hemoglobin Oxyhemoglobin Sodium Potassium Chloride 97.9 L Carbon Dioxide BUN 75 H Creatinine 1.6 H Glucose 122 H POC Glucose 149 H 163 H Lactic Acid Calcium Phosphorus 5.20 H Magnesium Direct Bilirubin AST ALT Alkaline Phosphatase Lactate Dehydrogenase Troponin T C-Reactive Protein Total Protein Albumin Prealbumin Triglycerides Cholesterol LDL Cholesterol Direct HDL Cholesterol PTH Intact Urine pH Urine WBC (Auto) Urine Creatinine Urine Total Protein Fluid Total Protein Vancomycin Trough Rheumatoid Factor Complement C4 Miscellaneous Test Crossmatch 12/15/16 12/15/16 12/15/16 05:50 11:24 17:01 WBC RBC Hgb Hct MCV MCH MCHC RDW Plt Count Lymph % (Auto) [place] % (Auto) Lymph # [place] # Baso # Seg Neutrophils % Seg Neuts % (Manual) Lymphocytes % (Manual) Monocytes % (Manual) Eosinophils % (Manual) Basophils % (Manual) Nucleated RBC % Seg Neutrophils # Seg Neutrophils # Man Lymphocytes # (Manual) Monocytes # (Manual) Eosinophils # (Manual) Basophils # (Manual) PT INR Fibrinogen dRVVT Confirm Interp Factor V Activity POC ABG pH POC ABG pCO2 POC ABG pO2 ABG pO2 ABG HCO3 ABG Base Excess ABG Hemoglobin Oxyhemoglobin Sodium Potassium Chloride Carbon Dioxide BUN Creatinine Glucose POC Glucose 150 H 146 H 167 H Lactic Acid Calcium Phosphorus Magnesium Direct Bilirubin AST ALT Alkaline Phosphatase Lactate Dehydrogenase Troponin T C-Reactive Protein Total Protein Albumin Prealbumin Triglycerides Cholesterol LDL Cholesterol Direct HDL Cholesterol PTH Intact Urine pH Urine WBC (Auto) Urine Creatinine Urine Total Protein Fluid Total Protein Vancomycin Trough Rheumatoid Factor Complement C4 Miscellaneous Test Crossmatch 12/15/16 12/16/16 12/16/16 23:34 05:25 11:24 WBC RBC Hgb Hct MCV MCH MCHC RDW Plt Count Lymph % (Auto) [place] % (Auto) Lymph # [place] # Baso # Seg Neutrophils % Seg Neuts % (Manual) Lymphocytes % (Manual) Monocytes % (Manual) Eosinophils % (Manual) Basophils % (Manual) Nucleated RBC % Seg Neutrophils # Seg Neutrophils # Man Lymphocytes # (Manual) Monocytes # (Manual) Eosinophils # (Manual) Basophils # (Manual) PT INR Fibrinogen dRVVT Confirm Interp Factor V Activity POC ABG pH POC ABG pCO2 POC ABG pO2 ABG pO2 ABG HCO3 ABG Base Excess ABG Hemoglobin Oxyhemoglobin Sodium Potassium Chloride Carbon Dioxide BUN Creatinine Glucose POC Glucose 127 H 139 H 165 H Lactic Acid Calcium Phosphorus Magnesium Direct Bilirubin AST ALT Alkaline Phosphatase Lactate Dehydrogenase Troponin T C-Reactive Protein Total Protein Albumin Prealbumin Triglycerides Cholesterol LDL Cholesterol Direct HDL Cholesterol PTH Intact Urine pH Urine WBC (Auto) Urine Creatinine Urine Total Protein Fluid Total Protein Vancomycin Trough Rheumatoid Factor Complement C4 Miscellaneous Test Crossmatch 12/16/16 12/16/16 12/16/16 15:30 16:25 17:31 WBC 17.8 H RBC 2.38 L Hgb 6.4 L Hct 20.3 L MCV MCH 27 L MCHC RDW 17.4 H Plt Count Lymph % (Auto) [place] % (Auto) Lymph # [place] # Baso # Seg Neutrophils % Seg Neuts % (Manual) Lymphocytes % (Manual) Monocytes % (Manual) 10.0 H Eosinophils % (Manual) Basophils % (Manual) Nucleated RBC % Seg Neutrophils # Seg Neutrophils # Man 8.5 H Lymphocytes # (Manual) Monocytes # (Manual) 1.8 H Eosinophils # (Manual) Basophils # (Manual) PT INR Fibrinogen dRVVT Confirm Interp Factor V Activity POC ABG pH POC ABG pCO2 POC ABG pO2 ABG pO2 ABG HCO3 ABG Base Excess ABG Hemoglobin Oxyhemoglobin Sodium Potassium Chloride Carbon Dioxide BUN Creatinine Glucose POC Glucose 176 H Lactic Acid Calcium Phosphorus Magnesium Direct Bilirubin AST ALT Alkaline Phosphatase Lactate Dehydrogenase Troponin T C-Reactive Protein Total Protein Albumin Prealbumin Triglycerides Cholesterol LDL Cholesterol Direct HDL Cholesterol PTH Intact Urine pH Urine WBC (Auto) Urine Creatinine Urine Total Protein Fluid Total Protein Vancomycin Trough Rheumatoid Factor Complement C4 Miscellaneous Test Crossmatch See Detail 12/17/16 12/17/16 12/17/16 00:14 04:00 05:00 WBC 20.0 H RBC 2.99 L Hgb 8.5 L Hct 25.7 L MCV MCH MCHC RDW 17.2 H Plt Count Lymph % (Auto) [place] % (Auto) Lymph # [place] # Baso # Seg Neutrophils % Seg Neuts % (Manual) Lymphocytes % (Manual) Monocytes % (Manual) Eosinophils % (Manual) Basophils % (Manual) Nucleated RBC % Seg Neutrophils # Seg Neutrophils # Man Lymphocytes # (Manual) Monocytes # (Manual) Eosinophils # (Manual) Basophils # (Manual) PT INR Fibrinogen dRVVT Confirm Interp Factor V Activity POC ABG pH POC ABG pCO2 POC ABG pO2 ABG pO2 ABG HCO3 ABG Base Excess ABG Hemoglobin Oxyhemoglobin Sodium Potassium Chloride 97.7 L Carbon Dioxide BUN 73 H Creatinine 1.7 H Glucose 136 H POC Glucose 148 H Lactic Acid Calcium Phosphorus 2.20 L Magnesium 2.70 H Direct Bilirubin AST ALT Alkaline Phosphatase Lactate Dehydrogenase Troponin T C-Reactive Protein Total Protein Albumin Prealbumin Triglycerides Cholesterol LDL Cholesterol Direct HDL Cholesterol PTH Intact Urine pH Urine WBC (Auto) Urine Creatinine Urine Total Protein Fluid Total Protein Vancomycin Trough Rheumatoid Factor Complement C4 Miscellaneous Test Crossmatch 12/17/16 12/17/16 12/17/16 05:39 12:50 16:32 WBC RBC Hgb Hct MCV MCH MCHC RDW Plt Count Lymph % (Auto) [place] % (Auto) Lymph # [place] # Baso # Seg Neutrophils % Seg Neuts % (Manual) Lymphocytes % (Manual) Monocytes % (Manual) Eosinophils % (Manual) Basophils % (Manual) Nucleated RBC % Seg Neutrophils # Seg Neutrophils # Man Lymphocytes # (Manual) Monocytes # (Manual) Eosinophils # (Manual) Basophils # (Manual) PT INR Fibrinogen dRVVT Confirm Interp Factor V Activity POC ABG pH POC ABG pCO2 POC ABG pO2 ABG pO2 ABG HCO3 ABG Base Excess ABG Hemoglobin Oxyhemoglobin Sodium Potassium Chloride Carbon Dioxide BUN Creatinine Glucose POC Glucose 162 H 146 H 169 H Lactic Acid Calcium Phosphorus Magnesium Direct Bilirubin AST ALT Alkaline Phosphatase Lactate Dehydrogenase Troponin T C-Reactive Protein Total Protein Albumin Prealbumin Triglycerides Cholesterol LDL Cholesterol Direct HDL Cholesterol PTH Intact Urine pH Urine WBC (Auto) Urine Creatinine Urine Total Protein Fluid Total Protein Vancomycin Trough Rheumatoid Factor Complement C4 Miscellaneous Test Crossmatch 12/17/16 12/18/16 12/18/16 23:57 05:00 05:32 WBC RBC Hgb Hct MCV MCH MCHC RDW Plt Count Lymph % (Auto) [place] % (Auto) Lymph # [place] # Baso # Seg Neutrophils % Seg Neuts % (Manual) Lymphocytes % (Manual) Monocytes % (Manual) Eosinophils % (Manual) Basophils % (Manual) Nucleated RBC % Seg Neutrophils # Seg Neutrophils # Man Lymphocytes # (Manual) Monocytes # (Manual) Eosinophils # (Manual) Basophils # (Manual) PT INR Fibrinogen dRVVT Confirm Interp Factor V Activity POC ABG pH POC ABG pCO2 POC ABG pO2 ABG pO2 ABG HCO3 ABG Base Excess ABG Hemoglobin Oxyhemoglobin Sodium Potassium Chloride 97.0 L Carbon Dioxide BUN 63 H Creatinine 1.4 H Glucose 174 H POC Glucose 145 H 201 H Lactic Acid Calcium Phosphorus 1.70 L D Magnesium Direct Bilirubin AST ALT Alkaline Phosphatase 257 H Lactate Dehydrogenase Troponin T C-Reactive Protein Total Protein 5.9 L Albumin 1.8 L Prealbumin Triglycerides Cholesterol LDL Cholesterol Direct HDL Cholesterol PTH Intact Urine pH Urine WBC (Auto) Urine Creatinine Urine Total Protein Fluid Total Protein Vancomycin Trough Rheumatoid Factor Complement C4 Miscellaneous Test Crossmatch 12/18/16 12/18/16 12/18/16 11:43 16:52 23:52 WBC RBC Hgb Hct MCV MCH MCHC RDW Plt Count Lymph % (Auto) [place] % (Auto) Lymph # [place] # Baso # Seg Neutrophils % Seg Neuts % (Manual) Lymphocytes % (Manual) Monocytes % (Manual) Eosinophils % (Manual) Basophils % (Manual) Nucleated RBC % Seg Neutrophils # Seg Neutrophils # Man Lymphocytes # (Manual) Monocytes # (Manual) Eosinophils # (Manual) Basophils # (Manual) PT INR Fibrinogen dRVVT Confirm Interp Factor V Activity POC ABG pH POC ABG pCO2 POC ABG pO2 ABG pO2 ABG HCO3 ABG Base Excess ABG Hemoglobin Oxyhemoglobin Sodium Potassium Chloride Carbon Dioxide BUN Creatinine Glucose POC Glucose 177 H 110 H 162 H Lactic Acid Calcium Phosphorus Magnesium Direct Bilirubin AST ALT Alkaline Phosphatase Lactate Dehydrogenase Troponin T C-Reactive Protein Total Protein Albumin Prealbumin Triglycerides Cholesterol LDL Cholesterol Direct HDL Cholesterol PTH Intact Urine pH Urine WBC (Auto) Urine Creatinine Urine Total Protein Fluid Total Protein Vancomycin Trough Rheumatoid Factor Complement C4 Miscellaneous Test Crossmatch 12/19/16 12/19/16 12/19/16 05:02 05:24 09:30 WBC 20.1 H RBC 2.73 L Hgb 7.6 L Hct 23.6 L MCV MCH MCHC RDW 17.6 H Plt Count Lymph % (Auto) [place] % (Auto) Lymph # [place] # Baso # Seg Neutrophils % Seg Neuts % (Manual) Lymphocytes % (Manual) 13.0 L Monocytes % (Manual) Eosinophils % (Manual) Basophils % (Manual) Nucleated RBC % 1.0 H Seg Neutrophils # Seg Neutrophils # Man 12.9 H Lymphocytes # (Manual) Monocytes # (Manual) 1.4 H Eosinophils # (Manual) Basophils # (Manual) 0.2 H PT INR Fibrinogen dRVVT Confirm Interp Factor V Activity POC ABG pH POC ABG pCO2 POC ABG pO2 ABG pO2 ABG HCO3 ABG Base Excess ABG Hemoglobin Oxyhemoglobin Sodium Potassium Chloride 97.8 L Carbon Dioxide BUN 84 H Creatinine 1.6 H Glucose 133 H POC Glucose 134 H Lactic Acid Calcium Phosphorus Magnesium Direct Bilirubin AST ALT Alkaline Phosphatase Lactate Dehydrogenase Troponin T C-Reactive Protein Total Protein Albumin Prealbumin Triglycerides Cholesterol LDL Cholesterol Direct HDL Cholesterol PTH Intact Urine pH Urine WBC (Auto) Urine Creatinine Urine Total Protein Fluid Total Protein Vancomycin Trough Rheumatoid Factor Complement C4 Miscellaneous Test Crossmatch 12/19/16 12/19/16 12/19/16 09:36 11:12 18:29 WBC RBC Hgb Hct MCV MCH MCHC RDW Plt Count Lymph % (Auto) [place] % (Auto) Lymph # [place] # Baso # Seg Neutrophils % Seg Neuts % (Manual) Lymphocytes % (Manual) Monocytes % (Manual) Eosinophils % (Manual) Basophils % (Manual) Nucleated RBC % Seg Neutrophils # Seg Neutrophils # Man Lymphocytes # (Manual) Monocytes # (Manual) Eosinophils # (Manual) Basophils # (Manual) PT INR Fibrinogen dRVVT Confirm Interp Factor V Activity POC ABG pH 7.503 H POC ABG pCO2 30.1 L POC ABG pO2 ABG pO2 ABG HCO3 ABG Base Excess ABG Hemoglobin Oxyhemoglobin Sodium Potassium Chloride Carbon Dioxide BUN Creatinine Glucose POC Glucose 138 H 156 H Lactic Acid Calcium Phosphorus Magnesium Direct Bilirubin AST ALT Alkaline Phosphatase Lactate Dehydrogenase Troponin T C-Reactive Protein Total Protein Albumin Prealbumin Triglycerides Cholesterol LDL Cholesterol Direct HDL Cholesterol PTH Intact Urine pH Urine WBC (Auto) Urine Creatinine Urine Total Protein Fluid Total Protein Vancomycin Trough Rheumatoid Factor Complement C4 Miscellaneous Test Crossmatch 12/20/16 12/20/16 12/20/16 00:03 06:17 07:07 WBC RBC Hgb Hct MCV MCH MCHC RDW Plt Count Lymph % (Auto) [place] % (Auto) Lymph # [place] # Baso # Seg Neutrophils % Seg Neuts % (Manual) Lymphocytes % (Manual) Monocytes % (Manual) Eosinophils % (Manual) Basophils % (Manual) Nucleated RBC % Seg Neutrophils # Seg Neutrophils # Man Lymphocytes # (Manual) Monocytes # (Manual) Eosinophils # (Manual) Basophils # (Manual) PT INR Fibrinogen dRVVT Confirm Interp Factor V Activity POC ABG pH POC ABG pCO2 POC ABG pO2 ABG pO2 ABG HCO3 ABG Base Excess ABG Hemoglobin Oxyhemoglobin Sodium Potassium Chloride 97.1 L Carbon Dioxide 20 L BUN 97 H Creatinine 1.8 H Glucose 153 H POC Glucose 152 H 175 H Lactic Acid Calcium Phosphorus Magnesium Direct Bilirubin AST ALT Alkaline Phosphatase Lactate Dehydrogenase Troponin T C-Reactive Protein Total Protein Albumin Prealbumin Triglycerides Cholesterol LDL Cholesterol Direct HDL Cholesterol PTH Intact Urine pH Urine WBC (Auto) Urine Creatinine Urine Total Protein Fluid Total Protein Vancomycin Trough Rheumatoid Factor Complement C4 Miscellaneous Test Crossmatch 12/20/16 12/20/16 12/20/16 12:00 17:42 23:53 WBC RBC Hgb Hct MCV MCH MCHC RDW Plt Count Lymph % (Auto) [place] % (Auto) Lymph # [place] # Baso # Seg Neutrophils % Seg Neuts % (Manual) Lymphocytes % (Manual) Monocytes % (Manual) Eosinophils % (Manual) Basophils % (Manual) Nucleated RBC % Seg Neutrophils # Seg Neutrophils # Man Lymphocytes # (Manual) Monocytes # (Manual) Eosinophils # (Manual) Basophils # (Manual) PT INR Fibrinogen dRVVT Confirm Interp Factor V Activity POC ABG pH POC ABG pCO2 POC ABG pO2 ABG pO2 ABG HCO3 ABG Base Excess ABG Hemoglobin Oxyhemoglobin Sodium Potassium Chloride Carbon Dioxide BUN Creatinine Glucose POC Glucose 141 H 156 H 132 H Lactic Acid Calcium Phosphorus Magnesium Direct Bilirubin AST ALT Alkaline Phosphatase Lactate Dehydrogenase Troponin T C-Reactive Protein Total Protein Albumin Prealbumin Triglycerides Cholesterol LDL Cholesterol Direct HDL Cholesterol PTH Intact Urine pH Urine WBC (Auto) Urine Creatinine Urine Total Protein Fluid Total Protein Vancomycin Trough Rheumatoid Factor Complement C4 Miscellaneous Test Crossmatch 12/21/16 12/21/16 12/21/16 05:49 08:50 12:19 WBC RBC Hgb Hct MCV MCH MCHC RDW Plt Count Lymph % (Auto) [place] % (Auto) Lymph # [place] # Baso # Seg Neutrophils % Seg Neuts % (Manual) Lymphocytes % (Manual) Monocytes % (Manual) Eosinophils % (Manual) Basophils % (Manual) Nucleated RBC % Seg Neutrophils # Seg Neutrophils # Man Lymphocytes # (Manual) Monocytes # (Manual) Eosinophils # (Manual) Basophils # (Manual) PT INR Fibrinogen dRVVT Confirm Interp Factor V Activity POC ABG pH POC ABG pCO2 POC ABG pO2 ABG pO2 ABG HCO3 ABG Base Excess ABG Hemoglobin Oxyhemoglobin Sodium Potassium 5.2 H D Chloride Carbon Dioxide BUN 63 H Creatinine Glucose 122 H POC Glucose 132 H 136 H Lactic Acid Calcium 8.3 L Phosphorus Magnesium Direct Bilirubin AST ALT Alkaline Phosphatase Lactate Dehydrogenase Troponin T C-Reactive Protein Total Protein Albumin Prealbumin Triglycerides Cholesterol LDL Cholesterol Direct HDL Cholesterol PTH Intact Urine pH Urine WBC (Auto) Urine Creatinine Urine Total Protein Fluid Total Protein Vancomycin Trough Rheumatoid Factor Complement C4 Miscellaneous Test Crossmatch 12/21/16 12/21/16 12/22/16 17:22 23:58 05:49 WBC RBC Hgb Hct MCV MCH MCHC RDW Plt Count Lymph % (Auto) [place] % (Auto) Lymph # [place] # Baso # Seg Neutrophils % Seg Neuts % (Manual) Lymphocytes % (Manual) Monocytes % (Manual) Eosinophils % (Manual) Basophils % (Manual) Nucleated RBC % Seg Neutrophils # Seg Neutrophils # Man Lymphocytes # (Manual) Monocytes # (Manual) Eosinophils # (Manual) Basophils # (Manual) PT INR Fibrinogen dRVVT Confirm Interp Factor V Activity POC ABG pH POC ABG pCO2 POC ABG pO2 ABG pO2 ABG HCO3 ABG Base Excess ABG Hemoglobin Oxyhemoglobin Sodium Potassium Chloride Carbon Dioxide BUN Creatinine Glucose POC Glucose 135 H 149 H 140 H Lactic Acid Calcium Phosphorus Magnesium Direct Bilirubin AST ALT Alkaline Phosphatase Lactate Dehydrogenase Troponin T C-Reactive Protein Total Protein Albumin Prealbumin Triglycerides Cholesterol LDL Cholesterol Direct HDL Cholesterol PTH Intact Urine pH Urine WBC (Auto) Urine Creatinine Urine Total Protein Fluid Total Protein Vancomycin Trough Rheumatoid Factor Complement C4 Miscellaneous Test Crossmatch 12/22/16 12/22/16 12/22/16 06:10 11:17 17:31 WBC RBC Hgb Hct MCV MCH MCHC RDW Plt Count Lymph % (Auto) [place] % (Auto) Lymph # [place] # Baso # Seg Neutrophils % Seg Neuts % (Manual) Lymphocytes % (Manual) Monocytes % (Manual) Eosinophils % (Manual) Basophils % (Manual) Nucleated RBC % Seg Neutrophils # Seg Neutrophils # Man Lymphocytes # (Manual) Monocytes # (Manual) Eosinophils # (Manual) Basophils # (Manual) PT INR Fibrinogen dRVVT Confirm Interp Factor V Activity POC ABG pH POC ABG pCO2 POC ABG pO2 ABG pO2 ABG HCO3 ABG Base Excess ABG Hemoglobin Oxyhemoglobin Sodium Potassium Chloride Carbon Dioxide BUN 76 H Creatinine 1.5 H Glucose 241 H POC Glucose 193 H 148 H Lactic Acid Calcium Phosphorus Magnesium Direct Bilirubin AST ALT Alkaline Phosphatase Lactate Dehydrogenase Troponin T C-Reactive Protein Total Protein Albumin Prealbumin Triglycerides Cholesterol LDL Cholesterol Direct HDL Cholesterol PTH Intact Urine pH Urine WBC (Auto) Urine Creatinine Urine Total Protein Fluid Total Protein Vancomycin Trough Rheumatoid Factor Complement C4 Miscellaneous Test Crossmatch 12/22/16 12/23/16 12/23/16 23:58 05:00 05:26 WBC RBC Hgb Hct MCV MCH MCHC RDW Plt Count Lymph % (Auto) [place] % (Auto) Lymph # [place] # Baso # Seg Neutrophils % Seg Neuts % (Manual) Lymphocytes % (Manual) Monocytes % (Manual) Eosinophils % (Manual) Basophils % (Manual) Nucleated RBC % Seg Neutrophils # Seg Neutrophils # Man Lymphocytes # (Manual) Monocytes # (Manual) Eosinophils # (Manual) Basophils # (Manual) PT INR Fibrinogen dRVVT Confirm Interp Factor V Activity POC ABG pH POC ABG pCO2 POC ABG pO2 ABG pO2 ABG HCO3 ABG Base Excess ABG Hemoglobin Oxyhemoglobin Sodium Potassium Chloride Carbon Dioxide BUN 49 H Creatinine Glucose 143 H POC Glucose 165 H 154 H Lactic Acid Calcium 8.2 L Phosphorus Magnesium 1.60 L Direct Bilirubin AST ALT Alkaline Phosphatase Lactate Dehydrogenase Troponin T C-Reactive Protein Total Protein Albumin Prealbumin Triglycerides Cholesterol LDL Cholesterol Direct HDL Cholesterol PTH Intact Urine pH Urine WBC (Auto) Urine Creatinine Urine Total Protein Fluid Total Protein Vancomycin Trough Rheumatoid Factor Complement C4 Miscellaneous Test Crossmatch 12/23/16 12/23/16 12/24/16 12:35 17:01 00:01 WBC RBC Hgb Hct MCV MCH MCHC RDW Plt Count Lymph % (Auto) [place] % (Auto) Lymph # [place] # Baso # Seg Neutrophils % Seg Neuts % (Manual) Lymphocytes % (Manual) Monocytes % (Manual) Eosinophils % (Manual) Basophils % (Manual) Nucleated RBC % Seg Neutrophils # Seg Neutrophils # Man Lymphocytes # (Manual) Monocytes # (Manual) Eosinophils # (Manual) Basophils # (Manual) PT INR Fibrinogen dRVVT Confirm Interp Factor V Activity POC ABG pH POC ABG pCO2 POC ABG pO2 ABG pO2 ABG HCO3 ABG Base Excess ABG Hemoglobin Oxyhemoglobin Sodium Potassium Chloride Carbon Dioxide BUN Creatinine Glucose POC Glucose 164 H 149 H 135 H Lactic Acid Calcium Phosphorus Magnesium Direct Bilirubin AST ALT Alkaline Phosphatase Lactate Dehydrogenase Troponin T C-Reactive Protein Total Protein Albumin Prealbumin Triglycerides Cholesterol LDL Cholesterol Direct HDL Cholesterol PTH Intact Urine pH Urine WBC (Auto) Urine Creatinine Urine Total Protein Fluid Total Protein Vancomycin Trough Rheumatoid Factor Complement C4 Miscellaneous Test Crossmatch 12/24/16 12/24/16 12/24/16 05:41 07:01 11:38 WBC RBC Hgb Hct MCV MCH MCHC RDW Plt Count Lymph % (Auto) [place] % (Auto) Lymph # [place] # Baso # Seg Neutrophils % Seg Neuts % (Manual) Lymphocytes % (Manual) Monocytes % (Manual) Eosinophils % (Manual) Basophils % (Manual) Nucleated RBC % Seg Neutrophils # Seg Neutrophils # Man Lymphocytes # (Manual) Monocytes # (Manual) Eosinophils # (Manual) Basophils # (Manual) PT INR Fibrinogen dRVVT Confirm Interp Factor V Activity POC ABG pH POC ABG pCO2 POC ABG pO2 ABG pO2 ABG HCO3 ABG Base Excess ABG Hemoglobin Oxyhemoglobin Sodium Potassium Chloride Carbon Dioxide BUN 72 H Creatinine 1.3 H Glucose 130 H POC Glucose 132 H 156 H Lactic Acid Calcium 8.2 L Phosphorus Magnesium Direct Bilirubin AST ALT Alkaline Phosphatase Lactate Dehydrogenase Troponin T C-Reactive Protein Total Protein Albumin Prealbumin Triglycerides Cholesterol LDL Cholesterol Direct HDL Cholesterol PTH Intact Urine pH Urine WBC (Auto) Urine Creatinine Urine Total Protein Fluid Total Protein Vancomycin Trough Rheumatoid Factor Complement C4 Miscellaneous Test Crossmatch 12/24/16 12/25/16 12/25/16 17:53 00:23 05:45 WBC RBC Hgb Hct MCV MCH MCHC RDW Plt Count Lymph % (Auto) [place] % (Auto) Lymph # [place] # Baso # Seg Neutrophils % Seg Neuts % (Manual) Lymphocytes % (Manual) Monocytes % (Manual) Eosinophils % (Manual) Basophils % (Manual) Nucleated RBC % Seg Neutrophils # Seg Neutrophils # Man Lymphocytes # (Manual) Monocytes # (Manual) Eosinophils # (Manual) Basophils # (Manual) PT INR Fibrinogen dRVVT Confirm Interp Factor V Activity POC ABG pH POC ABG pCO2 POC ABG pO2 ABG pO2 ABG HCO3 ABG Base Excess ABG Hemoglobin Oxyhemoglobin Sodium 146 H Potassium Chloride Carbon Dioxide BUN 51 H Creatinine Glucose 109 H POC Glucose 169 H 117 H Lactic Acid Calcium Phosphorus Magnesium Direct Bilirubin AST ALT Alkaline Phosphatase Lactate Dehydrogenase Troponin T C-Reactive Protein Total Protein Albumin Prealbumin Triglycerides Cholesterol LDL Cholesterol Direct HDL Cholesterol PTH Intact Urine pH Urine WBC (Auto) Urine Creatinine Urine Total Protein Fluid Total Protein Vancomycin Trough Rheumatoid Factor Complement C4 Miscellaneous Test Crossmatch 12/25/16 12/25/16 12/25/16 06:43 11:29 17:14 WBC RBC Hgb Hct MCV MCH MCHC RDW Plt Count Lymph % (Auto) [place] % (Auto) Lymph # [place] # Baso # Seg Neutrophils % Seg Neuts % (Manual) Lymphocytes % (Manual) Monocytes % (Manual) Eosinophils % (Manual) Basophils % (Manual) Nucleated RBC % Seg Neutrophils # Seg Neutrophils # Man Lymphocytes # (Manual) Monocytes # (Manual) Eosinophils # (Manual) Basophils # (Manual) PT INR Fibrinogen dRVVT Confirm Interp Factor V Activity POC ABG pH POC ABG pCO2 POC ABG pO2 ABG pO2 ABG HCO3 ABG Base Excess ABG Hemoglobin Oxyhemoglobin Sodium Potassium Chloride Carbon Dioxide BUN Creatinine Glucose POC Glucose 117 H 128 H 120 H Lactic Acid Calcium Phosphorus Magnesium Direct Bilirubin AST ALT Alkaline Phosphatase Lactate Dehydrogenase Troponin T C-Reactive Protein Total Protein Albumin Prealbumin Triglycerides Cholesterol LDL Cholesterol Direct HDL Cholesterol PTH Intact Urine pH Urine WBC (Auto) Urine Creatinine Urine Total Protein Fluid Total Protein Vancomycin Trough Rheumatoid Factor Complement C4 Miscellaneous Test Crossmatch 12/25/16 12/26/16 12/26/16 23:54 05:40 05:50 WBC 16.2 H RBC 2.32 L Hgb 6.2 L Hct 20.1 L MCV MCH 27 L MCHC RDW 18.6 H Plt Count Lymph % (Auto) [place] % (Auto) Lymph # [place] # Baso # Seg Neutrophils % Seg Neuts % (Manual) Lymphocytes % (Manual) Monocytes % (Manual) Eosinophils % (Manual) Basophils % (Manual) Nucleated RBC % Seg Neutrophils # Seg Neutrophils # Man Lymphocytes # (Manual) Monocytes # (Manual) Eosinophils # (Manual) Basophils # (Manual) PT INR Fibrinogen dRVVT Confirm Interp Factor V Activity POC ABG pH POC ABG pCO2 POC ABG pO2 ABG pO2 ABG HCO3 ABG Base Excess ABG Hemoglobin Oxyhemoglobin Sodium Potassium Chloride Carbon Dioxide BUN Creatinine Glucose POC Glucose 126 H 132 H Lactic Acid Calcium Phosphorus Magnesium Direct Bilirubin AST ALT Alkaline Phosphatase Lactate Dehydrogenase Troponin T C-Reactive Protein Total Protein Albumin Prealbumin Triglycerides Cholesterol LDL Cholesterol Direct HDL Cholesterol PTH Intact Urine pH Urine WBC (Auto) Urine Creatinine Urine Total Protein Fluid Total Protein Vancomycin Trough Rheumatoid Factor Complement C4 Miscellaneous Test Crossmatch 12/26/16 12/26/16 12/26/16 05:50 12:17 12:33 WBC RBC Hgb Hct MCV MCH MCHC RDW Plt Count Lymph % (Auto) [place] % (Auto) Lymph # [place] # Baso # Seg Neutrophils % Seg Neuts % (Manual) Lymphocytes % (Manual) Monocytes % (Manual) Eosinophils % (Manual) Basophils % (Manual) Nucleated RBC % Seg Neutrophils # Seg Neutrophils # Man Lymphocytes # (Manual) Monocytes # (Manual) Eosinophils # (Manual) Basophils # (Manual) PT INR Fibrinogen dRVVT Confirm Interp Factor V Activity POC ABG pH POC ABG pCO2 POC ABG pO2 ABG pO2 ABG HCO3 ABG Base Excess ABG Hemoglobin Oxyhemoglobin Sodium Potassium Chloride Carbon Dioxide BUN 73 H Creatinine 1.3 H Glucose 113 H POC Glucose 117 H Lactic Acid Calcium Phosphorus Magnesium Direct Bilirubin AST ALT Alkaline Phosphatase Lactate Dehydrogenase Troponin T C-Reactive Protein Total Protein Albumin Prealbumin Triglycerides Cholesterol LDL Cholesterol Direct HDL Cholesterol PTH Intact Urine pH Urine WBC (Auto) Urine Creatinine Urine Total Protein Fluid Total Protein Vancomycin Trough Rheumatoid Factor Complement C4 Miscellaneous Test Crossmatch See Detail 12/26/16 12/26/16 12/27/16 20:00 23:21 05:00 WBC RBC Hgb 8.4 L Hct 26.3 L D MCV MCH MCHC RDW Plt Count Lymph % (Auto) [place] % (Auto) Lymph # [place] # Baso # Seg Neutrophils % Seg Neuts % (Manual) Lymphocytes % (Manual) Monocytes % (Manual) Eosinophils % (Manual) Basophils % (Manual) Nucleated RBC % Seg Neutrophils # Seg Neutrophils # Man Lymphocytes # (Manual) Monocytes # (Manual) Eosinophils # (Manual) Basophils # (Manual) PT INR Fibrinogen dRVVT Confirm Interp Factor V Activity POC ABG pH POC ABG pCO2 POC ABG pO2 ABG pO2 ABG HCO3 ABG Base Excess ABG Hemoglobin Oxyhemoglobin Sodium Potassium Chloride Carbon Dioxide BUN 85 H Creatinine 1.6 H Glucose 118 H POC Glucose 124 H Lactic Acid Calcium Phosphorus 4.80 H Magnesium Direct Bilirubin AST ALT Alkaline Phosphatase Lactate Dehydrogenase Troponin T C-Reactive Protein Total Protein Albumin Prealbumin Triglycerides Cholesterol LDL Cholesterol Direct HDL Cholesterol PTH Intact Urine pH Urine WBC (Auto) Urine Creatinine Urine Total Protein Fluid Total Protein Vancomycin Trough Rheumatoid Factor Complement C4 Miscellaneous Test Crossmatch 12/27/16 12/27/16 12/27/16 05:00 05:35 12:24 WBC RBC Hgb 7.6 L Hct 22.8 L MCV MCH MCHC RDW Plt Count Lymph % (Auto) [place] % (Auto) Lymph # [place] # Baso # Seg Neutrophils % Seg Neuts % (Manual) Lymphocytes % (Manual) Monocytes % (Manual) Eosinophils % (Manual) Basophils % (Manual) Nucleated RBC % Seg Neutrophils # Seg Neutrophils # Man Lymphocytes # (Manual) Monocytes # (Manual) Eosinophils # (Manual) Basophils # (Manual) PT INR Fibrinogen dRVVT Confirm Interp Factor V Activity POC ABG pH POC ABG pCO2 POC ABG pO2 ABG pO2 ABG HCO3 ABG Base Excess ABG Hemoglobin Oxyhemoglobin Sodium Potassium Chloride Carbon Dioxide BUN Creatinine Glucose POC Glucose 115 H 131 H Lactic Acid Calcium Phosphorus Magnesium Direct Bilirubin AST ALT Alkaline Phosphatase Lactate Dehydrogenase Troponin T C-Reactive Protein Total Protein Albumin Prealbumin Triglycerides Cholesterol LDL Cholesterol Direct HDL Cholesterol PTH Intact Urine pH Urine WBC (Auto) Urine Creatinine Urine Total Protein Fluid Total Protein Vancomycin Trough Rheumatoid Factor Complement C4 Miscellaneous Test Crossmatch 12/27/16 12/28/16 12/28/16 17:16 00:18 04:00 WBC RBC Hgb Hct MCV MCH MCHC RDW Plt Count Lymph % (Auto) [place] % (Auto) Lymph # [place] # Baso # Seg Neutrophils % Seg Neuts % (Manual) Lymphocytes % (Manual) Monocytes % (Manual) Eosinophils % (Manual) Basophils % (Manual) Nucleated RBC % Seg Neutrophils # Seg Neutrophils # Man Lymphocytes # (Manual) Monocytes # (Manual) Eosinophils # (Manual) Basophils # (Manual) PT INR Fibrinogen dRVVT Confirm Interp Factor V Activity POC ABG pH POC ABG pCO2 POC ABG pO2 ABG pO2 ABG HCO3 ABG Base Excess ABG Hemoglobin Oxyhemoglobin Sodium Potassium 3.5 L Chloride Carbon Dioxide BUN 57 H Creatinine Glucose 118 H POC Glucose 136 H 120 H Lactic Acid Calcium 8.3 L Phosphorus Magnesium Direct Bilirubin AST ALT Alkaline Phosphatase Lactate Dehydrogenase Troponin T C-Reactive Protein Total Protein Albumin Prealbumin Triglycerides Cholesterol LDL Cholesterol Direct HDL Cholesterol PTH Intact Urine pH Urine WBC (Auto) Urine Creatinine Urine Total Protein Fluid Total Protein Vancomycin Trough Rheumatoid Factor Complement C4 Miscellaneous Test Crossmatch 12/28/16 12/28/16 12/28/16 04:00 05:11 08:30 WBC 17.0 H RBC 2.58 L Hgb 7.1 L Hct 22.0 L MCV MCH MCHC RDW 17.6 H Plt Count Lymph % (Auto) 12.2 L [place] % (Auto) Lymph # [place] # 1.1 H Baso # Seg Neutrophils % 80.5 H Seg Neuts % (Manual) Lymphocytes % (Manual) Monocytes % (Manual) Eosinophils % (Manual) Basophils % (Manual) Nucleated RBC % Seg Neutrophils # 13.7 H Seg Neutrophils # Man Lymphocytes # (Manual) Monocytes # (Manual) Eosinophils # (Manual) Basophils # (Manual) PT 16.1 H INR 1.23 H Fibrinogen dRVVT Confirm Interp Factor V Activity POC ABG pH POC ABG pCO2 POC ABG pO2 ABG pO2 ABG HCO3 ABG Base Excess ABG Hemoglobin Oxyhemoglobin Sodium Potassium Chloride Carbon Dioxide BUN Creatinine Glucose POC Glucose 122 H Lactic Acid Calcium Phosphorus Magnesium Direct Bilirubin AST ALT Alkaline Phosphatase Lactate Dehydrogenase Troponin T C-Reactive Protein Total Protein Albumin Prealbumin Triglycerides Cholesterol LDL Cholesterol Direct HDL Cholesterol PTH Intact Urine pH Urine WBC (Auto) Urine Creatinine Urine Total Protein Fluid Total Protein Vancomycin Trough Rheumatoid Factor Complement C4 Miscellaneous Test Crossmatch 12/28/16 12/28/16 12/28/16 12:27 16:32 23:46 WBC RBC Hgb Hct MCV MCH MCHC RDW Plt Count Lymph % (Auto) [place] % (Auto) Lymph # [place] # Baso # Seg Neutrophils % Seg Neuts % (Manual) Lymphocytes % (Manual) Monocytes % (Manual) Eosinophils % (Manual) Basophils % (Manual) Nucleated RBC % Seg Neutrophils # Seg Neutrophils # Man Lymphocytes # (Manual) Monocytes # (Manual) Eosinophils # (Manual) Basophils # (Manual) PT INR Fibrinogen dRVVT Confirm Interp Factor V Activity POC ABG pH POC ABG pCO2 POC ABG pO2 ABG pO2 ABG HCO3 ABG Base Excess ABG Hemoglobin Oxyhemoglobin Sodium Potassium Chloride Carbon Dioxide BUN Creatinine Glucose POC Glucose 127 H 117 H 108 H Lactic Acid Calcium Phosphorus Magnesium Direct Bilirubin AST ALT Alkaline Phosphatase Lactate Dehydrogenase Troponin T C-Reactive Protein Total Protein Albumin Prealbumin Triglycerides Cholesterol LDL Cholesterol Direct HDL Cholesterol PTH Intact Urine pH Urine WBC (Auto) Urine Creatinine Urine Total Protein Fluid Total Protein Vancomycin Trough Rheumatoid Factor Complement C4 Miscellaneous Test Crossmatch 12/29/16 12/29/16 12/29/16 05:15 05:15 05:32 WBC RBC Hgb Hct MCV MCH MCHC RDW Plt Count Lymph % (Auto) [place] % (Auto) Lymph # [place] # Baso # Seg Neutrophils % Seg Neuts % (Manual) Lymphocytes % (Manual) Monocytes % (Manual) Eosinophils % (Manual) Basophils % (Manual) Nucleated RBC % Seg Neutrophils # Seg Neutrophils # Man Lymphocytes # (Manual) Monocytes # (Manual) Eosinophils # (Manual) Basophils # (Manual) PT INR Fibrinogen dRVVT Confirm Interp Factor V Activity POC ABG pH POC ABG pCO2 POC ABG pO2 ABG pO2 ABG HCO3 ABG Base Excess ABG Hemoglobin Oxyhemoglobin Sodium Potassium Chloride Carbon Dioxide BUN 74 H Creatinine 1.6 H Glucose 111 H POC Glucose 123 H Lactic Acid Calcium Phosphorus Magnesium Direct Bilirubin AST ALT Alkaline Phosphatase Lactate Dehydrogenase Troponin T C-Reactive Protein Total Protein Albumin Prealbumin 0.110 L Triglycerides Cholesterol LDL Cholesterol Direct HDL Cholesterol PTH Intact Urine pH Urine WBC (Auto) Urine Creatinine Urine Total Protein Fluid Total Protein Vancomycin Trough Rheumatoid Factor Complement C4 Miscellaneous Test Crossmatch 12/29/16 12/29/16 12/29/16 11:43 13:45 14:00 WBC 13.8 H RBC 2.26 L Hgb 6.3 L Hct 20.4 L MCV MCH MCHC RDW 18.3 H Plt Count Lymph % (Auto) [place] % (Auto) Lymph # [place] # 0.9 H Baso # Seg Neutrophils % 78.6 H Seg Neuts % (Manual) Lymphocytes % (Manual) Monocytes % (Manual) Eosinophils % (Manual) Basophils % (Manual) Nucleated RBC % Seg Neutrophils # 10.8 H Seg Neutrophils # Man Lymphocytes # (Manual) Monocytes # (Manual) Eosinophils # (Manual) Basophils # (Manual) PT INR Fibrinogen dRVVT Confirm Interp Factor V Activity POC ABG pH POC ABG pCO2 POC ABG pO2 ABG pO2 ABG HCO3 ABG Base Excess ABG Hemoglobin Oxyhemoglobin Sodium Potassium Chloride Carbon Dioxide BUN Creatinine Glucose POC Glucose 133 H Lactic Acid Calcium Phosphorus Magnesium Direct Bilirubin AST ALT Alkaline Phosphatase Lactate Dehydrogenase Troponin T C-Reactive Protein Total Protein Albumin Prealbumin Triglycerides Cholesterol LDL Cholesterol Direct HDL Cholesterol PTH Intact Urine pH Urine WBC (Auto) Urine Creatinine Urine Total Protein Fluid Total Protein Vancomycin Trough Rheumatoid Factor Complement C4 Miscellaneous Test Crossmatch See Detail 12/29/16 12/29/16 12/29/16 17:03 23:15 23:22 WBC RBC Hgb 7.3 L Hct 22.3 L MCV MCH MCHC RDW Plt Count Lymph % (Auto) [place] % (Auto) Lymph # [place] # Baso # Seg Neutrophils % Seg Neuts % (Manual) Lymphocytes % (Manual) Monocytes % (Manual) Eosinophils % (Manual) Basophils % (Manual) Nucleated RBC % Seg Neutrophils # Seg Neutrophils # Man Lymphocytes # (Manual) Monocytes # (Manual) Eosinophils # (Manual) Basophils # (Manual) PT INR Fibrinogen dRVVT Confirm Interp Factor V Activity POC ABG pH POC ABG pCO2 POC ABG pO2 ABG pO2 ABG HCO3 ABG Base Excess ABG Hemoglobin Oxyhemoglobin Sodium Potassium Chloride Carbon Dioxide BUN Creatinine Glucose POC Glucose 139 H 120 H Lactic Acid Calcium Phosphorus Magnesium Direct Bilirubin AST ALT Alkaline Phosphatase Lactate Dehydrogenase Troponin T C-Reactive Protein Total Protein Albumin Prealbumin Triglycerides Cholesterol LDL Cholesterol Direct HDL Cholesterol PTH Intact Urine pH Urine WBC (Auto) Urine Creatinine Urine Total Protein Fluid Total Protein Vancomycin Trough Rheumatoid Factor Complement C4 Miscellaneous Test Crossmatch 12/30/16 12/30/16 12/30/16 04:20 04:20 05:43 WBC 15.6 H RBC 2.81 L Hgb 8.0 L Hct 24.0 L MCV MCH MCHC RDW 16.9 H Plt Count Lymph % (Auto) [place] % (Auto) Lymph # [place] # 1.0 H Baso # Seg Neutrophils % 76.2 H Seg Neuts % (Manual) Lymphocytes % (Manual) Monocytes % (Manual) Eosinophils % (Manual) Basophils % (Manual) Nucleated RBC % Seg Neutrophils # 11.9 H Seg Neutrophils # Man Lymphocytes # (Manual) Monocytes # (Manual) Eosinophils # (Manual) Basophils # (Manual) PT INR Fibrinogen dRVVT Confirm Interp Factor V Activity POC ABG pH POC ABG pCO2 POC ABG pO2 ABG pO2 ABG HCO3 ABG Base Excess ABG Hemoglobin Oxyhemoglobin Sodium Potassium Chloride Carbon Dioxide BUN 87 H Creatinine 1.8 H Glucose 119 H POC Glucose 115 H Lactic Acid Calcium Phosphorus Magnesium Direct Bilirubin AST ALT Alkaline Phosphatase Lactate Dehydrogenase Troponin T C-Reactive Protein Total Protein Albumin Prealbumin Triglycerides Cholesterol LDL Cholesterol Direct HDL Cholesterol PTH Intact Urine pH Urine WBC (Auto) Urine Creatinine Urine Total Protein Fluid Total Protein Vancomycin Trough Rheumatoid Factor Complement C4 Miscellaneous Test Crossmatch 12/30/16 12/30/16 12/31/16 17:27 23:21 04:00 WBC RBC Hgb Hct MCV MCH MCHC RDW Plt Count Lymph % (Auto) [place] % (Auto) Lymph # [place] # Baso # Seg Neutrophils % Seg Neuts % (Manual) Lymphocytes % (Manual) Monocytes % (Manual) Eosinophils % (Manual) Basophils % (Manual) Nucleated RBC % Seg Neutrophils # Seg Neutrophils # Man Lymphocytes # (Manual) Monocytes # (Manual) Eosinophils # (Manual) Basophils # (Manual) PT INR Fibrinogen dRVVT Confirm Interp Factor V Activity POC ABG pH POC ABG pCO2 POC ABG pO2 ABG pO2 ABG HCO3 ABG Base Excess ABG Hemoglobin Oxyhemoglobin Sodium Potassium Chloride Carbon Dioxide BUN 59 H Creatinine Glucose 298 H POC Glucose 144 H 125 H Lactic Acid Calcium Phosphorus Magnesium Direct Bilirubin AST ALT Alkaline Phosphatase Lactate Dehydrogenase Troponin T C-Reactive Protein Total Protein Albumin Prealbumin Triglycerides Cholesterol LDL Cholesterol Direct HDL Cholesterol PTH Intact Urine pH Urine WBC (Auto) Urine Creatinine Urine Total Protein Fluid Total Protein Vancomycin Trough Rheumatoid Factor Complement C4 Miscellaneous Test Crossmatch 12/31/16 12/31/16 12/31/16 05:11 12:18 18:17 WBC RBC Hgb Hct MCV MCH MCHC RDW Plt Count Lymph % (Auto) [place] % (Auto) Lymph # [place] # Baso # Seg Neutrophils % Seg Neuts % (Manual) Lymphocytes % (Manual) Monocytes % (Manual) Eosinophils % (Manual) Basophils % (Manual) Nucleated RBC % Seg Neutrophils # Seg Neutrophils # Man Lymphocytes # (Manual) Monocytes # (Manual) Eosinophils # (Manual) Basophils # (Manual) PT INR Fibrinogen dRVVT Confirm Interp Factor V Activity POC ABG pH POC ABG pCO2 POC ABG pO2 ABG pO2 ABG HCO3 ABG Base Excess ABG Hemoglobin Oxyhemoglobin Sodium Potassium Chloride Carbon Dioxide BUN Creatinine Glucose POC Glucose 167 H 125 H 133 H Lactic Acid Calcium Phosphorus Magnesium Direct Bilirubin AST ALT Alkaline Phosphatase Lactate Dehydrogenase Troponin T C-Reactive Protein Total Protein Albumin Prealbumin Triglycerides Cholesterol LDL Cholesterol Direct HDL Cholesterol PTH Intact Urine pH Urine WBC (Auto) Urine Creatinine Urine Total Protein Fluid Total Protein Vancomycin Trough Rheumatoid Factor Complement C4 Miscellaneous Test Crossmatch 12/31/16 01/01/17 01/01/17 23:55 05:00 05:12 WBC RBC Hgb Hct MCV MCH MCHC RDW Plt Count Lymph % (Auto) [place] % (Auto) Lymph # [place] # Baso # Seg Neutrophils % Seg Neuts % (Manual) Lymphocytes % (Manual) Monocytes % (Manual) Eosinophils % (Manual) Basophils % (Manual) Nucleated RBC % Seg Neutrophils # Seg Neutrophils # Man Lymphocytes # (Manual) Monocytes # (Manual) Eosinophils # (Manual) Basophils # (Manual) PT INR Fibrinogen dRVVT Confirm Interp Factor V Activity POC ABG pH POC ABG pCO2 POC ABG pO2 ABG pO2 ABG HCO3 ABG Base Excess ABG Hemoglobin Oxyhemoglobin Sodium Potassium Chloride Carbon Dioxide BUN 76 H Creatinine 1.5 H Glucose 109 H POC Glucose 129 H 129 H Lactic Acid Calcium Phosphorus Magnesium Direct Bilirubin AST ALT Alkaline Phosphatase 536 H Lactate Dehydrogenase Troponin T C-Reactive Protein Total Protein Albumin 1.5 L Prealbumin Triglycerides Cholesterol LDL Cholesterol Direct HDL Cholesterol PTH Intact Urine pH Urine WBC (Auto) Urine Creatinine Urine Total Protein Fluid Total Protein Vancomycin Trough Rheumatoid Factor Complement C4 Miscellaneous Test Crossmatch 01/01/17 01/01/17 01/01/17 12:25 17:01 23:32 WBC RBC Hgb Hct MCV MCH MCHC RDW Plt Count Lymph % (Auto) [place] % (Auto) Lymph # [place] # Baso # Seg Neutrophils % Seg Neuts % (Manual) Lymphocytes % (Manual) Monocytes % (Manual) Eosinophils % (Manual) Basophils % (Manual) Nucleated RBC % Seg Neutrophils # Seg Neutrophils # Man Lymphocytes # (Manual) Monocytes # (Manual) Eosinophils # (Manual) Basophils # (Manual) PT INR Fibrinogen dRVVT Confirm Interp Factor V Activity POC ABG pH POC ABG pCO2 POC ABG pO2 ABG pO2 ABG HCO3 ABG Base Excess ABG Hemoglobin Oxyhemoglobin Sodium Potassium Chloride Carbon Dioxide BUN Creatinine Glucose POC Glucose 140 H 142 H 112 H Lactic Acid Calcium Phosphorus Magnesium Direct Bilirubin AST ALT Alkaline Phosphatase Lactate Dehydrogenase Troponin T C-Reactive Protein Total Protein Albumin Prealbumin Triglycerides Cholesterol LDL Cholesterol Direct HDL Cholesterol PTH Intact Urine pH Urine WBC (Auto) Urine Creatinine Urine Total Protein Fluid Total Protein Vancomycin Trough Rheumatoid Factor Complement C4 Miscellaneous Test Crossmatch 01/02/17 01/02/17 01/02/17 04:56 06:00 11:37 WBC RBC Hgb Hct MCV MCH MCHC RDW Plt Count Lymph % (Auto) [place] % (Auto) Lymph # [place] # Baso # Seg Neutrophils % Seg Neuts % (Manual) Lymphocytes % (Manual) Monocytes % (Manual) Eosinophils % (Manual) Basophils % (Manual) Nucleated RBC % Seg Neutrophils # Seg Neutrophils # Man Lymphocytes # (Manual) Monocytes # (Manual) Eosinophils # (Manual) Basophils # (Manual) PT INR Fibrinogen dRVVT Confirm Interp Factor V Activity POC ABG pH POC ABG pCO2 POC ABG pO2 ABG pO2 ABG HCO3 ABG Base Excess ABG Hemoglobin Oxyhemoglobin Sodium Potassium Chloride Carbon Dioxide BUN 88 H Creatinine 1.7 H Glucose 113 H POC Glucose 136 H 200 H Lactic Acid Calcium Phosphorus Magnesium Direct Bilirubin AST ALT Alkaline Phosphatase Lactate Dehydrogenase Troponin T C-Reactive Protein Total Protein Albumin Prealbumin Triglycerides Cholesterol LDL Cholesterol Direct HDL Cholesterol PTH Intact Urine pH Urine WBC (Auto) Urine Creatinine Urine Total Protein Fluid Total Protein Vancomycin Trough Rheumatoid Factor Complement C4 Miscellaneous Test Crossmatch 01/02/17 01/02/17 01/03/17 17:42 22:52 04:54 WBC RBC Hgb Hct MCV MCH MCHC RDW Plt Count Lymph % (Auto) [place] % (Auto) Lymph # [place] # Baso # Seg Neutrophils % Seg Neuts % (Manual) Lymphocytes % (Manual) Monocytes % (Manual) Eosinophils % (Manual) Basophils % (Manual) Nucleated RBC % Seg Neutrophils # Seg Neutrophils # Man Lymphocytes # (Manual) Monocytes # (Manual) Eosinophils # (Manual) Basophils # (Manual) PT INR Fibrinogen dRVVT Confirm Interp Factor V Activity POC ABG pH POC ABG pCO2 POC ABG pO2 ABG pO2 ABG HCO3 ABG Base Excess ABG Hemoglobin Oxyhemoglobin Sodium Potassium Chloride Carbon Dioxide BUN Creatinine Glucose POC Glucose 112 H 133 H 111 H Lactic Acid Calcium Phosphorus Magnesium Direct Bilirubin AST ALT Alkaline Phosphatase Lactate Dehydrogenase Troponin T C-Reactive Protein Total Protein Albumin Prealbumin Triglycerides Cholesterol LDL Cholesterol Direct HDL Cholesterol PTH Intact Urine pH Urine WBC (Auto) Urine Creatinine Urine Total Protein Fluid Total Protein Vancomycin Trough Rheumatoid Factor Complement C4 Miscellaneous Test Crossmatch 01/03/17 01/03/17 01/03/17 05:00 05:00 14:02 WBC 11.2 H RBC 2.56 L Hgb 7.2 L Hct 22.3 L MCV MCH MCHC RDW 17.3 H Plt Count Lymph % (Auto) [place] % (Auto) 10.0 H Lymph # [place] # 1.1 H Baso # Seg Neutrophils % 70.5 H Seg Neuts % (Manual) Lymphocytes % (Manual) Monocytes % (Manual) Eosinophils % (Manual) Basophils % (Manual) Nucleated RBC % Seg Neutrophils # 7.9 H Seg Neutrophils # Man Lymphocytes # (Manual) Monocytes # (Manual) Eosinophils # (Manual) Basophils # (Manual) PT INR Fibrinogen dRVVT Confirm Interp Factor V Activity POC ABG pH POC ABG pCO2 POC ABG pO2 ABG pO2 ABG HCO3 ABG Base Excess ABG Hemoglobin Oxyhemoglobin Sodium Potassium Chloride Carbon Dioxide BUN 60 H Creatinine 1.3 H Glucose 110 H POC Glucose 119 H Lactic Acid Calcium Phosphorus Magnesium Direct Bilirubin AST ALT Alkaline Phosphatase Lactate Dehydrogenase Troponin T C-Reactive Protein Total Protein Albumin Prealbumin Triglycerides Cholesterol LDL Cholesterol Direct HDL Cholesterol PTH Intact Urine pH Urine WBC (Auto) Urine Creatinine Urine Total Protein Fluid Total Protein Vancomycin Trough Rheumatoid Factor Complement C4 Miscellaneous Test Crossmatch 01/03/17 01/03/17 01/04/17 18:13 23:40 05:57 WBC RBC Hgb Hct MCV MCH MCHC RDW Plt Count Lymph % (Auto) [place] % (Auto) Lymph # [place] # Baso # Seg Neutrophils % Seg Neuts % (Manual) Lymphocytes % (Manual) Monocytes % (Manual) Eosinophils % (Manual) Basophils % (Manual) Nucleated RBC % Seg Neutrophils # Seg Neutrophils # Man Lymphocytes # (Manual) Monocytes # (Manual) Eosinophils # (Manual) Basophils # (Manual) PT INR Fibrinogen dRVVT Confirm Interp Factor V Activity POC ABG pH POC ABG pCO2 POC ABG pO2 ABG pO2 ABG HCO3 ABG Base Excess ABG Hemoglobin Oxyhemoglobin Sodium Potassium Chloride Carbon Dioxide BUN Creatinine Glucose POC Glucose 107 H 129 H 111 H Lactic Acid Calcium Phosphorus Magnesium Direct Bilirubin AST ALT Alkaline Phosphatase Lactate Dehydrogenase Troponin T C-Reactive Protein Total Protein Albumin Prealbumin Triglycerides Cholesterol LDL Cholesterol Direct HDL Cholesterol PTH Intact Urine pH Urine WBC (Auto) Urine Creatinine Urine Total Protein Fluid Total Protein Vancomycin Trough Rheumatoid Factor Complement C4 Miscellaneous Test Crossmatch 01/04/17 01/04/17 01/04/17 12:46 15:27 17:11 WBC RBC Hgb Hct MCV MCH MCHC RDW Plt Count Lymph % (Auto) [place] % (Auto) Lymph # [place] # Baso # Seg Neutrophils % Seg Neuts % (Manual) Lymphocytes % (Manual) Monocytes % (Manual) Eosinophils % (Manual) Basophils % (Manual) Nucleated RBC % Seg Neutrophils # Seg Neutrophils # Man Lymphocytes # (Manual) Monocytes # (Manual) Eosinophils # (Manual) Basophils # (Manual) PT INR Fibrinogen dRVVT Confirm Interp Factor V Activity POC ABG pH POC ABG pCO2 POC ABG pO2 ABG pO2 ABG HCO3 ABG Base Excess ABG Hemoglobin Oxyhemoglobin Sodium Potassium Chloride Carbon Dioxide BUN 43 H Creatinine Glucose 124 H POC Glucose 159 H 125 H Lactic Acid Calcium 8.0 L Phosphorus 2.10 L Magnesium Direct Bilirubin AST ALT Alkaline Phosphatase Lactate Dehydrogenase Troponin T C-Reactive Protein Total Protein Albumin Prealbumin Triglycerides Cholesterol LDL Cholesterol Direct HDL Cholesterol PTH Intact Urine pH Urine WBC (Auto) Urine Creatinine Urine Total Protein Fluid Total Protein Vancomycin Trough Rheumatoid Factor Complement C4 Miscellaneous Test Crossmatch 01/04/17 01/05/17 01/05/17 23:31 04:00 05:46 WBC RBC Hgb Hct MCV MCH MCHC RDW Plt Count Lymph % (Auto) [place] % (Auto) Lymph # [place] # Baso # Seg Neutrophils % Seg Neuts % (Manual) Lymphocytes % (Manual) Monocytes % (Manual) Eosinophils % (Manual) Basophils % (Manual) Nucleated RBC % Seg Neutrophils # Seg Neutrophils # Man Lymphocytes # (Manual) Monocytes # (Manual) Eosinophils # (Manual) Basophils # (Manual) PT INR Fibrinogen dRVVT Confirm Interp Factor V Activity POC ABG pH POC ABG pCO2 POC ABG pO2 ABG pO2 ABG HCO3 ABG Base Excess ABG Hemoglobin Oxyhemoglobin Sodium Potassium Chloride Carbon Dioxide BUN 52 H Creatinine 1.3 H Glucose 113 H POC Glucose 123 H 118 H Lactic Acid Calcium Phosphorus 2.40 L Magnesium Direct Bilirubin AST ALT Alkaline Phosphatase Lactate Dehydrogenase Troponin T C-Reactive Protein Total Protein Albumin Prealbumin Triglycerides Cholesterol LDL Cholesterol Direct HDL Cholesterol PTH Intact Urine pH Urine WBC (Auto) Urine Creatinine Urine Total Protein Fluid Total Protein Vancomycin Trough Rheumatoid Factor Complement C4 Miscellaneous Test Crossmatch 01/05/17 01/05/17 01/05/17 11:41 17:48 23:27 WBC RBC Hgb Hct MCV MCH MCHC RDW Plt Count Lymph % (Auto) [place] % (Auto) Lymph # [place] # Baso # Seg Neutrophils % Seg Neuts % (Manual) Lymphocytes % (Manual) Monocytes % (Manual) Eosinophils % (Manual) Basophils % (Manual) Nucleated RBC % Seg Neutrophils # Seg Neutrophils # Man Lymphocytes # (Manual) Monocytes # (Manual) Eosinophils # (Manual) Basophils # (Manual) PT INR Fibrinogen dRVVT Confirm Interp Factor V Activity POC ABG pH POC ABG pCO2 POC ABG pO2 ABG pO2 ABG HCO3 ABG Base Excess ABG Hemoglobin Oxyhemoglobin Sodium Potassium Chloride Carbon Dioxide BUN Creatinine Glucose POC Glucose 163 H 142 H 155 H Lactic Acid Calcium Phosphorus Magnesium Direct Bilirubin AST ALT Alkaline Phosphatase Lactate Dehydrogenase Troponin T C-Reactive Protein Total Protein Albumin Prealbumin Triglycerides Cholesterol LDL Cholesterol Direct HDL Cholesterol PTH Intact Urine pH Urine WBC (Auto) Urine Creatinine Urine Total Protein Fluid Total Protein Vancomycin Trough Rheumatoid Factor Complement C4 Miscellaneous Test Crossmatch 01/06/17 01/06/17 01/06/17 05:20 07:35 11:18 WBC RBC Hgb Hct MCV MCH MCHC RDW Plt Count Lymph % (Auto) [place] % (Auto) Lymph # [place] # Baso # Seg Neutrophils % Seg Neuts % (Manual) Lymphocytes % (Manual) Monocytes % (Manual) Eosinophils % (Manual) Basophils % (Manual) Nucleated RBC % Seg Neutrophils # Seg Neutrophils # Man Lymphocytes # (Manual) Monocytes # (Manual) Eosinophils # (Manual) Basophils # (Manual) PT INR Fibrinogen dRVVT Confirm Interp Factor V Activity POC ABG pH POC ABG pCO2 POC ABG pO2 ABG pO2 ABG HCO3 ABG Base Excess ABG Hemoglobin Oxyhemoglobin Sodium Potassium Chloride Carbon Dioxide BUN 74 H Creatinine 1.6 H Glucose 135 H POC Glucose 108 H 149 H Lactic Acid Calcium Phosphorus Magnesium Direct Bilirubin AST ALT Alkaline Phosphatase Lactate Dehydrogenase Troponin T C-Reactive Protein Total Protein Albumin Prealbumin Triglycerides Cholesterol LDL Cholesterol Direct HDL Cholesterol PTH Intact Urine pH Urine WBC (Auto) Urine Creatinine Urine Total Protein Fluid Total Protein Vancomycin Trough Rheumatoid Factor Complement C4 Miscellaneous Test Crossmatch 01/06/17 01/07/17 01/07/17 17:17 00:23 05:31 WBC RBC Hgb Hct MCV MCH MCHC RDW Plt Count Lymph % (Auto) [place] % (Auto) Lymph # [place] # Baso # Seg Neutrophils % Seg Neuts % (Manual) Lymphocytes % (Manual) Monocytes % (Manual) Eosinophils % (Manual) Basophils % (Manual) Nucleated RBC % Seg Neutrophils # Seg Neutrophils # Man Lymphocytes # (Manual) Monocytes # (Manual) Eosinophils # (Manual) Basophils # (Manual) PT INR Fibrinogen dRVVT Confirm Interp Factor V Activity POC ABG pH POC ABG pCO2 POC ABG pO2 ABG pO2 ABG HCO3 ABG Base Excess ABG Hemoglobin Oxyhemoglobin Sodium Potassium Chloride Carbon Dioxide BUN Creatinine Glucose POC Glucose 146 H 165 H 153 H Lactic Acid Calcium Phosphorus Magnesium Direct Bilirubin AST ALT Alkaline Phosphatase Lactate Dehydrogenase Troponin T C-Reactive Protein Total Protein Albumin Prealbumin Triglycerides Cholesterol LDL Cholesterol Direct HDL Cholesterol PTH Intact Urine pH Urine WBC (Auto) Urine Creatinine Urine Total Protein Fluid Total Protein Vancomycin Trough Rheumatoid Factor Complement C4 Miscellaneous Test Crossmatch 01/07/17 01/07/17 01/07/17 06:00 11:39 17:11 WBC RBC Hgb Hct MCV MCH MCHC RDW Plt Count Lymph % (Auto) [place] % (Auto) Lymph # [place] # Baso # Seg Neutrophils % Seg Neuts % (Manual) Lymphocytes % (Manual) Monocytes % (Manual) Eosinophils % (Manual) Basophils % (Manual) Nucleated RBC % Seg Neutrophils # Seg Neutrophils # Man Lymphocytes # (Manual) Monocytes # (Manual) Eosinophils # (Manual) Basophils # (Manual) PT INR Fibrinogen dRVVT Confirm Interp Factor V Activity POC ABG pH POC ABG pCO2 POC ABG pO2 ABG pO2 ABG HCO3 ABG Base Excess ABG Hemoglobin Oxyhemoglobin Sodium Potassium Chloride Carbon Dioxide BUN 42 H Creatinine Glucose 175 H POC Glucose 163 H 163 H Lactic Acid Calcium Phosphorus 2.40 L D Magnesium Direct Bilirubin AST ALT Alkaline Phosphatase Lactate Dehydrogenase Troponin T C-Reactive Protein Total Protein Albumin Prealbumin Triglycerides Cholesterol LDL Cholesterol Direct HDL Cholesterol PTH Intact Urine pH Urine WBC (Auto) Urine Creatinine Urine Total Protein Fluid Total Protein Vancomycin Trough Rheumatoid Factor Complement C4 Miscellaneous Test Crossmatch 01/07/17 01/08/17 01/08/17 23:40 05:00 05:00 WBC 27.4 H RBC 2.27 L Hgb 6.1 L Hct 20.4 L MCV MCH 27 L MCHC RDW 17.8 H Plt Count Lymph % (Auto) [place] % (Auto) Lymph # [place] # Baso # Seg Neutrophils % Seg Neuts % (Manual) Lymphocytes % (Manual) Monocytes % (Manual) Eosinophils % (Manual) Basophils % (Manual) Nucleated RBC % Seg Neutrophils # Seg Neutrophils # Man Lymphocytes # (Manual) Monocytes # (Manual) Eosinophils # (Manual) Basophils # (Manual) PT INR Fibrinogen dRVVT Confirm Interp Factor V Activity POC ABG pH POC ABG pCO2 POC ABG pO2 ABG pO2 ABG HCO3 ABG Base Excess ABG Hemoglobin Oxyhemoglobin Sodium Potassium Chloride Carbon Dioxide 16 L D BUN 62 H Creatinine 1.6 H D Glucose 103 H POC Glucose 135 H Lactic Acid Calcium Phosphorus Magnesium Direct Bilirubin AST ALT Alkaline Phosphatase Lactate Dehydrogenase Troponin T C-Reactive Protein Total Protein Albumin Prealbumin Triglycerides Cholesterol LDL Cholesterol Direct HDL Cholesterol PTH Intact Urine pH Urine WBC (Auto) Urine Creatinine Urine Total Protein Fluid Total Protein Vancomycin Trough Rheumatoid Factor Complement C4 Miscellaneous Test Crossmatch 01/08/17 01/08/17 01/08/17 05:25 10:37 10:37 WBC RBC Hgb Hct MCV MCH MCHC RDW Plt Count Lymph % (Auto) [place] % (Auto) Lymph # [place] # Baso # Seg Neutrophils % Seg Neuts % (Manual) Lymphocytes % (Manual) Monocytes % (Manual) Eosinophils % (Manual) Basophils % (Manual) Nucleated RBC % Seg Neutrophils # Seg Neutrophils # Man Lymphocytes # (Manual) Monocytes # (Manual) Eosinophils # (Manual) Basophils # (Manual) PT INR Fibrinogen dRVVT Confirm Interp Factor V Activity POC ABG pH POC ABG pCO2 POC ABG pO2 ABG pO2 ABG HCO3 ABG Base Excess ABG Hemoglobin Oxyhemoglobin Sodium Potassium Chloride Carbon Dioxide BUN Creatinine Glucose POC Glucose 106 H Lactic Acid Calcium Phosphorus Magnesium Direct Bilirubin AST ALT Alkaline Phosphatase Lactate Dehydrogenase Troponin T C-Reactive Protein 24.40 H Total Protein Albumin Prealbumin Triglycerides Cholesterol LDL Cholesterol Direct HDL Cholesterol PTH Intact Urine pH Urine WBC (Auto) Urine Creatinine Urine Total Protein Fluid Total Protein Vancomycin Trough Rheumatoid Factor Complement C4 Miscellaneous Test Crossmatch See Detail 01/08/17 01/08/17 01/08/17 10:37 11:33 15:15 WBC RBC Hgb Hct MCV MCH MCHC RDW Plt Count Lymph % (Auto) [place] % (Auto) Lymph # [place] # Baso # Seg Neutrophils % Seg Neuts % (Manual) Lymphocytes % (Manual) Monocytes % (Manual) Eosinophils % (Manual) Basophils % (Manual) Nucleated RBC % Seg Neutrophils # Seg Neutrophils # Man Lymphocytes # (Manual) Monocytes # (Manual) Eosinophils # (Manual) Basophils # (Manual) PT INR Fibrinogen dRVVT Confirm Interp Factor V Activity POC ABG pH POC ABG pCO2 POC ABG pO2 ABG pO2 ABG HCO3 ABG Base Excess ABG Hemoglobin Oxyhemoglobin Sodium Potassium Chloride Carbon Dioxide BUN Creatinine Glucose POC Glucose 157 H Lactic Acid 9.70 H* 9.10 H* Calcium Phosphorus Magnesium Direct Bilirubin AST ALT Alkaline Phosphatase Lactate Dehydrogenase Troponin T C-Reactive Protein Total Protein Albumin Prealbumin Triglycerides Cholesterol LDL Cholesterol Direct HDL Cholesterol PTH Intact Urine pH Urine WBC (Auto) Urine Creatinine Urine Total Protein Fluid Total Protein Vancomycin Trough Rheumatoid Factor Complement C4 Miscellaneous Test Crossmatch 01/08/17 01/08/17 01/09/17 17:19 23:12 04:40 WBC RBC Hgb Hct MCV MCH MCHC RDW Plt Count Lymph % (Auto) [place] % (Auto) Lymph # [place] # Baso # Seg Neutrophils % Seg Neuts % (Manual) Lymphocytes % (Manual) Monocytes % (Manual) Eosinophils % (Manual) Basophils % (Manual) Nucleated RBC % Seg Neutrophils # Seg Neutrophils # Man Lymphocytes # (Manual) Monocytes # (Manual) Eosinophils # (Manual) Basophils # (Manual) PT INR Fibrinogen dRVVT Confirm Interp Factor V Activity POC ABG pH POC ABG pCO2 POC ABG pO2 ABG pO2 ABG HCO3 ABG Base Excess ABG Hemoglobin Oxyhemoglobin Sodium 147 H Potassium Chloride Carbon Dioxide BUN 82 H Creatinine 1.8 H Glucose 137 H POC Glucose 164 H 157 H Lactic Acid Calcium Phosphorus Magnesium Direct Bilirubin AST ALT Alkaline Phosphatase Lactate Dehydrogenase Troponin T C-Reactive Protein Total Protein Albumin Prealbumin Triglycerides Cholesterol LDL Cholesterol Direct HDL Cholesterol PTH Intact Urine pH Urine WBC (Auto) Urine Creatinine Urine Total Protein Fluid Total Protein Vancomycin Trough Rheumatoid Factor Complement C4 Miscellaneous Test Crossmatch 01/09/17 01/09/17 01/09/17 05:42 08:22 10:57 WBC RBC Hgb Hct MCV MCH MCHC RDW Plt Count Lymph % (Auto) [place] % (Auto) Lymph # [place] # Baso # Seg Neutrophils % Seg Neuts % (Manual) Lymphocytes % (Manual) Monocytes % (Manual) Eosinophils % (Manual) Basophils % (Manual) Nucleated RBC % Seg Neutrophils # Seg Neutrophils # Man Lymphocytes # (Manual) Monocytes # (Manual) Eosinophils # (Manual) Basophils # (Manual) PT INR Fibrinogen dRVVT Confirm Interp Factor V Activity POC ABG pH POC ABG pCO2 POC ABG pO2 ABG pO2 ABG HCO3 ABG Base Excess ABG Hemoglobin Oxyhemoglobin Sodium Potassium Chloride Carbon Dioxide BUN Creatinine Glucose POC Glucose 156 H 122 H Lactic Acid 2.30 H* Calcium Phosphorus Magnesium Direct Bilirubin AST ALT Alkaline Phosphatase Lactate Dehydrogenase Troponin T C-Reactive Protein Total Protein Albumin Prealbumin Triglycerides Cholesterol LDL Cholesterol Direct HDL Cholesterol PTH Intact Urine pH Urine WBC (Auto) Urine Creatinine Urine Total Protein Fluid Total Protein Vancomycin Trough Rheumatoid Factor Complement C4 Miscellaneous Test Crossmatch 01/09/17 01/09/17 01/09/17 13:30 17:14 18:45 WBC RBC Hgb Hct MCV MCH MCHC RDW Plt Count Lymph % (Auto) [place] % (Auto) Lymph # [place] # Baso # Seg Neutrophils % Seg Neuts % (Manual) Lymphocytes % (Manual) Monocytes % (Manual) Eosinophils % (Manual) Basophils % (Manual) Nucleated RBC % Seg Neutrophils # Seg Neutrophils # Man Lymphocytes # (Manual) Monocytes # (Manual) Eosinophils # (Manual) Basophils # (Manual) PT INR Fibrinogen dRVVT Confirm Interp Factor V Activity POC ABG pH POC ABG pCO2 POC ABG pO2 ABG pO2 ABG HCO3 ABG Base Excess ABG Hemoglobin Oxyhemoglobin Sodium Potassium Chloride Carbon Dioxide BUN Creatinine Glucose POC Glucose 127 H Lactic Acid Calcium Phosphorus Magnesium Direct Bilirubin AST ALT Alkaline Phosphatase Lactate Dehydrogenase Troponin T C-Reactive Protein 24.70 H Total Protein Albumin Prealbumin Triglycerides Cholesterol LDL Cholesterol Direct HDL Cholesterol PTH Intact Urine pH Urine WBC (Auto) Urine Creatinine Urine Total Protein Fluid Total Protein Vancomycin Trough Rheumatoid Factor Complement C4 Miscellaneous Test Flexitest 1 H Crossmatch 01/10/17 01/10/17 01/10/17 01:21 04:00 04:00 WBC 18.1 H RBC 3.22 L Hgb 8.8 L Hct 27.0 L D MCV MCH 27 L MCHC RDW 17.0 H Plt Count Lymph % (Auto) [place] % (Auto) Lymph # [place] # Baso # Seg Neutrophils % Seg Neuts % (Manual) Lymphocytes % (Manual) Monocytes % (Manual) Eosinophils % (Manual) Basophils % (Manual) Nucleated RBC % Seg Neutrophils # Seg Neutrophils # Man Lymphocytes # (Manual) Monocytes # (Manual) Eosinophils # (Manual) Basophils # (Manual) PT INR Fibrinogen dRVVT Confirm Interp Factor V Activity POC ABG pH POC ABG pCO2 POC ABG pO2 ABG pO2 ABG HCO3 ABG Base Excess ABG Hemoglobin Oxyhemoglobin Sodium Potassium Chloride Carbon Dioxide BUN 59 H Creatinine 1.3 H Glucose 122 H POC Glucose 160 H Lactic Acid Calcium Phosphorus Magnesium Direct Bilirubin AST ALT Alkaline Phosphatase Lactate Dehydrogenase Troponin T C-Reactive Protein Total Protein Albumin Prealbumin Triglycerides Cholesterol LDL Cholesterol Direct HDL Cholesterol PTH Intact Urine pH Urine WBC (Auto) Urine Creatinine Urine Total Protein Fluid Total Protein Vancomycin Trough Rheumatoid Factor Complement C4 Miscellaneous Test Crossmatch 01/10/17 01/10/17 01/10/17 05:36 12:14 17:55 WBC RBC Hgb Hct MCV MCH MCHC RDW Plt Count Lymph % (Auto) [place] % (Auto) Lymph # [place] # Baso # Seg Neutrophils % Seg Neuts % (Manual) Lymphocytes % (Manual) Monocytes % (Manual) Eosinophils % (Manual) Basophils % (Manual) Nucleated RBC % Seg Neutrophils # Seg Neutrophils # Man Lymphocytes # (Manual) Monocytes # (Manual) Eosinophils # (Manual) Basophils # (Manual) PT INR Fibrinogen dRVVT Confirm Interp Factor V Activity POC ABG pH POC ABG pCO2 POC ABG pO2 ABG pO2 ABG HCO3 ABG Base Excess ABG Hemoglobin Oxyhemoglobin Sodium Potassium Chloride Carbon Dioxide BUN Creatinine Glucose POC Glucose 163 H 120 H 144 H Lactic Acid Calcium Phosphorus Magnesium Direct Bilirubin AST ALT Alkaline Phosphatase Lactate Dehydrogenase Troponin T C-Reactive Protein Total Protein Albumin Prealbumin Triglycerides Cholesterol LDL Cholesterol Direct HDL Cholesterol PTH Intact Urine pH Urine WBC (Auto) Urine Creatinine Urine Total Protein Fluid Total Protein Vancomycin Trough Rheumatoid Factor Complement C4 Miscellaneous Test Crossmatch 01/11/17 01/11/17 01/11/17 00:09 04:00 04:00 WBC 15.8 H RBC 3.04 L Hgb 8.2 L Hct 25.5 L MCV MCH 27 L MCHC RDW 17.3 H Plt Count Lymph % (Auto) [place] % (Auto) Lymph # [place] # Baso # Seg Neutrophils % Seg Neuts % (Manual) Lymphocytes % (Manual) Monocytes % (Manual) Eosinophils % (Manual) Basophils % (Manual) Nucleated RBC % Seg Neutrophils # Seg Neutrophils # Man Lymphocytes # (Manual) Monocytes # (Manual) Eosinophils # (Manual) Basophils # (Manual) PT INR Fibrinogen dRVVT Confirm Interp Factor V Activity POC ABG pH POC ABG pCO2 POC ABG pO2 ABG pO2 ABG HCO3 ABG Base Excess ABG Hemoglobin Oxyhemoglobin Sodium Potassium Chloride Carbon Dioxide BUN 78 H Creatinine 1.6 H Glucose 109 H POC Glucose 122 H Lactic Acid Calcium Phosphorus Magnesium Direct Bilirubin AST ALT Alkaline Phosphatase Lactate Dehydrogenase Troponin T C-Reactive Protein Total Protein Albumin Prealbumin Triglycerides Cholesterol LDL Cholesterol Direct HDL Cholesterol PTH Intact Urine pH Urine WBC (Auto) Urine Creatinine Urine Total Protein Fluid Total Protein Vancomycin Trough Rheumatoid Factor Complement C4 Miscellaneous Test Crossmatch 01/11/17 01/11/17 01/11/17 12:46 18:23 23:42 WBC RBC Hgb Hct MCV MCH MCHC RDW Plt Count Lymph % (Auto) [place] % (Auto) Lymph # [place] # Baso # Seg Neutrophils % Seg Neuts % (Manual) Lymphocytes % (Manual) Monocytes % (Manual) Eosinophils % (Manual) Basophils % (Manual) Nucleated RBC % Seg Neutrophils # Seg Neutrophils # Man Lymphocytes # (Manual) Monocytes # (Manual) Eosinophils # (Manual) Basophils # (Manual) PT INR Fibrinogen dRVVT Confirm Interp Factor V Activity POC ABG pH POC ABG pCO2 POC ABG pO2 ABG pO2 ABG HCO3 ABG Base Excess ABG Hemoglobin Oxyhemoglobin Sodium Potassium Chloride Carbon Dioxide BUN Creatinine Glucose POC Glucose 148 H 125 H 124 H Lactic Acid Calcium Phosphorus Magnesium Direct Bilirubin AST ALT Alkaline Phosphatase Lactate Dehydrogenase Troponin T C-Reactive Protein Total Protein Albumin Prealbumin Triglycerides Cholesterol LDL Cholesterol Direct HDL Cholesterol PTH Intact Urine pH Urine WBC (Auto) Urine Creatinine Urine Total Protein Fluid Total Protein Vancomycin Trough Rheumatoid Factor Complement C4 Miscellaneous Test Crossmatch 01/12/17 01/12/17 01/12/17 04:30 04:30 05:47 WBC 15.8 H RBC 3.31 L Hgb 8.9 L Hct 27.9 L MCV MCH 27 L MCHC RDW 17.4 H Plt Count Lymph % (Auto) [place] % (Auto) Lymph # [place] # Baso # Seg Neutrophils % Seg Neuts % (Manual) Lymphocytes % (Manual) Monocytes % (Manual) Eosinophils % (Manual) Basophils % (Manual) Nucleated RBC % Seg Neutrophils # Seg Neutrophils # Man Lymphocytes # (Manual) Monocytes # (Manual) Eosinophils # (Manual) Basophils # (Manual) PT INR Fibrinogen dRVVT Confirm Interp Factor V Activity POC ABG pH POC ABG pCO2 POC ABG pO2 ABG pO2 ABG HCO3 ABG Base Excess ABG Hemoglobin Oxyhemoglobin Sodium Potassium Chloride Carbon Dioxide BUN 57 H Creatinine Glucose 121 H POC Glucose 110 H Lactic Acid Calcium Phosphorus 2.10 L Magnesium Direct Bilirubin AST ALT Alkaline Phosphatase Lactate Dehydrogenase Troponin T C-Reactive Protein Total Protein Albumin Prealbumin Triglycerides Cholesterol LDL Cholesterol Direct HDL Cholesterol PTH Intact Urine pH Urine WBC (Auto) Urine Creatinine Urine Total Protein Fluid Total Protein Vancomycin Trough Rheumatoid Factor Complement C4 Miscellaneous Test Crossmatch 01/12/17 01/12/17 01/12/17 11:35 17:45 23:14 WBC RBC Hgb Hct MCV MCH MCHC RDW Plt Count Lymph % (Auto) [place] % (Auto) Lymph # [place] # Baso # Seg Neutrophils % Seg Neuts % (Manual) Lymphocytes % (Manual) Monocytes % (Manual) Eosinophils % (Manual) Basophils % (Manual) Nucleated RBC % Seg Neutrophils # Seg Neutrophils # Man Lymphocytes # (Manual) Monocytes # (Manual) Eosinophils # (Manual) Basophils # (Manual) PT INR Fibrinogen dRVVT Confirm Interp Factor V Activity POC ABG pH POC ABG pCO2 POC ABG pO2 ABG pO2 ABG HCO3 ABG Base Excess ABG Hemoglobin Oxyhemoglobin Sodium Potassium Chloride Carbon Dioxide BUN Creatinine Glucose POC Glucose 146 H 117 H 123 H Lactic Acid Calcium Phosphorus Magnesium Direct Bilirubin AST ALT Alkaline Phosphatase Lactate Dehydrogenase Troponin T C-Reactive Protein Total Protein Albumin Prealbumin Triglycerides Cholesterol LDL Cholesterol Direct HDL Cholesterol PTH Intact Urine pH Urine WBC (Auto) Urine Creatinine Urine Total Protein Fluid Total Protein Vancomycin Trough Rheumatoid Factor Complement C4 Miscellaneous Test Crossmatch 01/13/17 01/13/17 01/13/17 05:32 06:00 12:10 WBC RBC Hgb Hct MCV MCH MCHC RDW Plt Count Lymph % (Auto) [place] % (Auto) Lymph # [place] # Baso # Seg Neutrophils % Seg Neuts % (Manual) Lymphocytes % (Manual) Monocytes % (Manual) Eosinophils % (Manual) Basophils % (Manual) Nucleated RBC % Seg Neutrophils # Seg Neutrophils # Man Lymphocytes # (Manual) Monocytes # (Manual) Eosinophils # (Manual) Basophils # (Manual) PT INR Fibrinogen dRVVT Confirm Interp Factor V Activity POC ABG pH POC ABG pCO2 POC ABG pO2 ABG pO2 ABG HCO3 ABG Base Excess ABG Hemoglobin Oxyhemoglobin Sodium Potassium Chloride Carbon Dioxide BUN 80 H Creatinine 1.4 H Glucose 106 H POC Glucose 106 H Lactic Acid Calcium Phosphorus Magnesium Direct Bilirubin AST ALT Alkaline Phosphatase Lactate Dehydrogenase Troponin T C-Reactive Protein Total Protein Albumin Prealbumin Triglycerides Cholesterol LDL Cholesterol Direct HDL Cholesterol PTH Intact Urine pH Urine WBC (Auto) Urine Creatinine Urine Total Protein Fluid Total Protein 3.0 L Vancomycin Trough Rheumatoid Factor Complement C4 Miscellaneous Test Crossmatch 01/13/17 01/13/17 01/13/17 12:17 15:50 17:30 WBC RBC Hgb Hct MCV MCH MCHC RDW Plt Count Lymph % (Auto) [place] % (Auto) Lymph # [place] # Baso # Seg Neutrophils % Seg Neuts % (Manual) Lymphocytes % (Manual) Monocytes % (Manual) Eosinophils % (Manual) Basophils % (Manual) Nucleated RBC % Seg Neutrophils # Seg Neutrophils # Man Lymphocytes # (Manual) Monocytes # (Manual) Eosinophils # (Manual) Basophils # (Manual) PT 15.4 H INR 1.16 H Fibrinogen dRVVT Confirm Interp Factor V Activity POC ABG pH POC ABG pCO2 POC ABG pO2 ABG pO2 ABG HCO3 ABG Base Excess ABG Hemoglobin Oxyhemoglobin Sodium Potassium Chloride Carbon Dioxide BUN Creatinine Glucose POC Glucose 168 H 110 H Lactic Acid Calcium Phosphorus Magnesium Direct Bilirubin AST ALT Alkaline Phosphatase Lactate Dehydrogenase Troponin T C-Reactive Protein Total Protein Albumin Prealbumin Triglycerides Cholesterol LDL Cholesterol Direct HDL Cholesterol PTH Intact Urine pH Urine WBC (Auto) Urine Creatinine Urine Total Protein Fluid Total Protein Vancomycin Trough Rheumatoid Factor Complement C4 Miscellaneous Test Crossmatch 01/13/17 01/14/17 01/14/17 23:42 05:24 05:30 WBC RBC Hgb Hct MCV MCH MCHC RDW Plt Count Lymph % (Auto) [place] % (Auto) Lymph # [place] # Baso # Seg Neutrophils % Seg Neuts % (Manual) Lymphocytes % (Manual) Monocytes % (Manual) Eosinophils % (Manual) Basophils % (Manual) Nucleated RBC % Seg Neutrophils # Seg Neutrophils # Man Lymphocytes # (Manual) Monocytes # (Manual) Eosinophils # (Manual) Basophils # (Manual) PT INR Fibrinogen dRVVT Confirm Interp Factor V Activity POC ABG pH POC ABG pCO2 POC ABG pO2 ABG pO2 ABG HCO3 ABG Base Excess ABG Hemoglobin Oxyhemoglobin Sodium Potassium Chloride Carbon Dioxide BUN 58 H Creatinine Glucose 114 H POC Glucose 155 H 121 H Lactic Acid Calcium Phosphorus Magnesium Direct Bilirubin AST ALT Alkaline Phosphatase Lactate Dehydrogenase Troponin T C-Reactive Protein Total Protein Albumin Prealbumin Triglycerides Cholesterol LDL Cholesterol Direct HDL Cholesterol PTH Intact Urine pH Urine WBC (Auto) Urine Creatinine Urine Total Protein Fluid Total Protein Vancomycin Trough Rheumatoid Factor Complement C4 Miscellaneous Test Crossmatch 01/14/17 01/14/17 01/15/17 12:48 17:36 00:15 WBC RBC Hgb Hct MCV MCH MCHC RDW Plt Count Lymph % (Auto) [place] % (Auto) Lymph # [place] # Baso # Seg Neutrophils % Seg Neuts % (Manual) Lymphocytes % (Manual) Monocytes % (Manual) Eosinophils % (Manual) Basophils % (Manual) Nucleated RBC % Seg Neutrophils # Seg Neutrophils # Man Lymphocytes # (Manual) Monocytes # (Manual) Eosinophils # (Manual) Basophils # (Manual) PT INR Fibrinogen dRVVT Confirm Interp Factor V Activity POC ABG pH POC ABG pCO2 POC ABG pO2 ABG pO2 ABG HCO3 ABG Base Excess ABG Hemoglobin Oxyhemoglobin Sodium Potassium Chloride Carbon Dioxide BUN Creatinine Glucose POC Glucose 130 H 135 H 132 H Lactic Acid Calcium Phosphorus Magnesium Direct Bilirubin AST ALT Alkaline Phosphatase Lactate Dehydrogenase Troponin T C-Reactive Protein Total Protein Albumin Prealbumin Triglycerides Cholesterol LDL Cholesterol Direct HDL Cholesterol PTH Intact Urine pH Urine WBC (Auto) Urine Creatinine Urine Total Protein Fluid Total Protein Vancomycin Trough Rheumatoid Factor Complement C4 Miscellaneous Test Crossmatch 01/15/17 01/15/17 01/15/17 05:01 11:55 12:45 WBC 16.2 H RBC 3.00 L Hgb 8.1 L Hct 25.4 L MCV MCH 27 L MCHC RDW 17.6 H Plt Count Lymph % (Auto) 11.7 L [place] % (Auto) 7.8 H Lymph # [place] # 1.3 H Baso # Seg Neutrophils % 80.1 H Seg Neuts % (Manual) Lymphocytes % (Manual) Monocytes % (Manual) Eosinophils % (Manual) Basophils % (Manual) Nucleated RBC % Seg Neutrophils # 13.0 H Seg Neutrophils # Man Lymphocytes # (Manual) Monocytes # (Manual) Eosinophils # (Manual) Basophils # (Manual) PT INR Fibrinogen dRVVT Confirm Interp Factor V Activity POC ABG pH POC ABG pCO2 POC ABG pO2 ABG pO2 ABG HCO3 ABG Base Excess ABG Hemoglobin Oxyhemoglobin Sodium Potassium Chloride Carbon Dioxide BUN Creatinine Glucose POC Glucose 126 H 125 H Lactic Acid Calcium Phosphorus Magnesium Direct Bilirubin AST ALT Alkaline Phosphatase Lactate Dehydrogenase Troponin T C-Reactive Protein Total Protein Albumin Prealbumin Triglycerides Cholesterol LDL Cholesterol Direct HDL Cholesterol PTH Intact Urine pH Urine WBC (Auto) Urine Creatinine Urine Total Protein Fluid Total Protein Vancomycin Trough Rheumatoid Factor Complement C4 Miscellaneous Test Crossmatch 01/15/17 01/15/17 01/15/17 12:45 17:31 23:39 WBC RBC Hgb Hct MCV MCH MCHC RDW Plt Count Lymph % (Auto) [place] % (Auto) Lymph # [place] # Baso # Seg Neutrophils % Seg Neuts % (Manual) Lymphocytes % (Manual) Monocytes % (Manual) Eosinophils % (Manual) Basophils % (Manual) Nucleated RBC % Seg Neutrophils # Seg Neutrophils # Man Lymphocytes # (Manual) Monocytes # (Manual) Eosinophils # (Manual) Basophils # (Manual) PT INR Fibrinogen dRVVT Confirm Interp Factor V Activity POC ABG pH POC ABG pCO2 POC ABG pO2 ABG pO2 ABG HCO3 ABG Base Excess ABG Hemoglobin Oxyhemoglobin Sodium 136 L Potassium Chloride Carbon Dioxide BUN 87 H Creatinine 1.7 H Glucose 108 H POC Glucose 129 H 112 H Lactic Acid Calcium Phosphorus Magnesium Direct Bilirubin AST ALT Alkaline Phosphatase Lactate Dehydrogenase Troponin T C-Reactive Protein Total Protein Albumin Prealbumin Triglycerides Cholesterol LDL Cholesterol Direct HDL Cholesterol PTH Intact Urine pH Urine WBC (Auto) Urine Creatinine Urine Total Protein Fluid Total Protein Vancomycin Trough Rheumatoid Factor Complement C4 Miscellaneous Test Crossmatch 01/16/17 01/16/17 01/16/17 05:23 11:42 12:32 WBC RBC Hgb Hct MCV MCH MCHC RDW Plt Count Lymph % (Auto) [place] % (Auto) Lymph # [place] # Baso # Seg Neutrophils % Seg Neuts % (Manual) Lymphocytes % (Manual) Monocytes % (Manual) Eosinophils % (Manual) Basophils % (Manual) Nucleated RBC % Seg Neutrophils # Seg Neutrophils # Man Lymphocytes # (Manual) Monocytes # (Manual) Eosinophils # (Manual) Basophils # (Manual) PT INR Fibrinogen dRVVT Confirm Interp Factor V Activity POC ABG pH 7.499 H POC ABG pCO2 30.9 L POC ABG pO2 51 L ABG pO2 ABG HCO3 ABG Base Excess ABG Hemoglobin Oxyhemoglobin Sodium Potassium Chloride Carbon Dioxide BUN Creatinine Glucose POC Glucose 118 H 133 H Lactic Acid Calcium Phosphorus Magnesium Direct Bilirubin AST ALT Alkaline Phosphatase Lactate Dehydrogenase Troponin T C-Reactive Protein Total Protein Albumin Prealbumin Triglycerides Cholesterol LDL Cholesterol Direct HDL Cholesterol PTH Intact Urine pH Urine WBC (Auto) Urine Creatinine Urine Total Protein Fluid Total Protein Vancomycin Trough Rheumatoid Factor Complement C4 Miscellaneous Test Crossmatch 01/16/17 01/16/17 01/16/17 17:52 23:57 Unknown WBC RBC Hgb Hct MCV MCH MCHC RDW Plt Count Lymph % (Auto) [place] % (Auto) Lymph # [place] # Baso # Seg Neutrophils % Seg Neuts % (Manual) Lymphocytes % (Manual) Monocytes % (Manual) Eosinophils % (Manual) Basophils % (Manual) Nucleated RBC % Seg Neutrophils # Seg Neutrophils # Man Lymphocytes # (Manual) Monocytes # (Manual) Eosinophils # (Manual) Basophils # (Manual) PT INR Fibrinogen dRVVT Confirm Interp Factor V Activity POC ABG pH POC ABG pCO2 POC ABG pO2 ABG pO2 ABG HCO3 ABG Base Excess ABG Hemoglobin Oxyhemoglobin Sodium 135 L Potassium Chloride Carbon Dioxide BUN 101 H Creatinine 1.8 H Glucose 117 H POC Glucose 130 H 143 H Lactic Acid Calcium Phosphorus 5.80 H Magnesium Direct Bilirubin AST ALT Alkaline Phosphatase Lactate Dehydrogenase Troponin T C-Reactive Protein Total Protein Albumin Prealbumin Triglycerides Cholesterol LDL Cholesterol Direct HDL Cholesterol PTH Intact Urine pH Urine WBC (Auto) Urine Creatinine Urine Total Protein Fluid Total Protein Vancomycin Trough Rheumatoid Factor Complement C4 Miscellaneous Test Crossmatch 01/17/17 01/17/17 01/17/17 05:30 05:46 11:49 WBC RBC Hgb Hct MCV MCH MCHC RDW Plt Count Lymph % (Auto) [place] % (Auto) Lymph # [place] # Baso # Seg Neutrophils % Seg Neuts % (Manual) Lymphocytes % (Manual) Monocytes % (Manual) Eosinophils % (Manual) Basophils % (Manual) Nucleated RBC % Seg Neutrophils # Seg Neutrophils # Man Lymphocytes # (Manual) Monocytes # (Manual) Eosinophils # (Manual) Basophils # (Manual) PT INR Fibrinogen dRVVT Confirm Interp Factor V Activity POC ABG pH POC ABG pCO2 POC ABG pO2 ABG pO2 ABG HCO3 ABG Base Excess ABG Hemoglobin Oxyhemoglobin Sodium 134 L Potassium Chloride 95.8 L Carbon Dioxide BUN 66 H Creatinine 1.3 H Glucose 138 H POC Glucose 147 H 124 H Lactic Acid Calcium Phosphorus Magnesium Direct Bilirubin AST ALT Alkaline Phosphatase 254 H Lactate Dehydrogenase Troponin T C-Reactive Protein Total Protein Albumin 1.3 L Prealbumin Triglycerides Cholesterol LDL Cholesterol Direct HDL Cholesterol PTH Intact Urine pH Urine WBC (Auto) Urine Creatinine Urine Total Protein Fluid Total Protein Vancomycin Trough Rheumatoid Factor Complement C4 Miscellaneous Test Crossmatch 01/17/17 01/17/17 01/18/17 17:30 23:41 05:15 WBC RBC Hgb Hct MCV MCH MCHC RDW Plt Count Lymph % (Auto) [place] % (Auto) Lymph # [place] # Baso # Seg Neutrophils % Seg Neuts % (Manual) Lymphocytes % (Manual) Monocytes % (Manual) Eosinophils % (Manual) Basophils % (Manual) Nucleated RBC % Seg Neutrophils # Seg Neutrophils # Man Lymphocytes # (Manual) Monocytes # (Manual) Eosinophils # (Manual) Basophils # (Manual) PT INR Fibrinogen dRVVT Confirm Interp Factor V Activity POC ABG pH POC ABG pCO2 POC ABG pO2 ABG pO2 ABG HCO3 ABG Base Excess ABG Hemoglobin Oxyhemoglobin Sodium Potassium Chloride Carbon Dioxide BUN 89 H Creatinine 1.7 H Glucose 118 H POC Glucose 137 H 119 H Lactic Acid Calcium Phosphorus Magnesium Direct Bilirubin AST ALT Alkaline Phosphatase Lactate Dehydrogenase Troponin T C-Reactive Protein Total Protein Albumin Prealbumin Triglycerides Cholesterol LDL Cholesterol Direct HDL Cholesterol PTH Intact Urine pH Urine WBC (Auto) Urine Creatinine Urine Total Protein Fluid Total Protein Vancomycin Trough Rheumatoid Factor Complement C4 Miscellaneous Test Crossmatch 01/18/17 01/18/17 01/18/17 05:19 12:16 18:11 WBC RBC Hgb Hct MCV MCH MCHC RDW Plt Count Lymph % (Auto) [place] % (Auto) Lymph # [place] # Baso # Seg Neutrophils % Seg Neuts % (Manual) Lymphocytes % (Manual) Monocytes % (Manual) Eosinophils % (Manual) Basophils % (Manual) Nucleated RBC % Seg Neutrophils # Seg Neutrophils # Man Lymphocytes # (Manual) Monocytes # (Manual) Eosinophils # (Manual) Basophils # (Manual) PT INR Fibrinogen dRVVT Confirm Interp Factor V Activity POC ABG pH POC ABG pCO2 POC ABG pO2 ABG pO2 ABG HCO3 ABG Base Excess ABG Hemoglobin Oxyhemoglobin Sodium Potassium Chloride Carbon Dioxide BUN Creatinine Glucose POC Glucose 134 H 188 H 113 H Lactic Acid Calcium Phosphorus Magnesium Direct Bilirubin AST ALT Alkaline Phosphatase Lactate Dehydrogenase Troponin T C-Reactive Protein Total Protein Albumin Prealbumin Triglycerides Cholesterol LDL Cholesterol Direct HDL Cholesterol PTH Intact Urine pH Urine WBC (Auto) Urine Creatinine Urine Total Protein Fluid Total Protein Vancomycin Trough Rheumatoid Factor Complement C4 Miscellaneous Test Crossmatch 01/19/17 01/19/17 01/19/17 00:00 05:30 05:36 WBC RBC Hgb Hct MCV MCH MCHC RDW Plt Count Lymph % (Auto) [place] % (Auto) Lymph # [place] # Baso # Seg Neutrophils % Seg Neuts % (Manual) Lymphocytes % (Manual) Monocytes % (Manual) Eosinophils % (Manual) Basophils % (Manual) Nucleated RBC % Seg Neutrophils # Seg Neutrophils # Man Lymphocytes # (Manual) Monocytes # (Manual) Eosinophils # (Manual) Basophils # (Manual) PT INR Fibrinogen dRVVT Confirm Interp Factor V Activity POC ABG pH POC ABG pCO2 POC ABG pO2 ABG pO2 ABG HCO3 ABG Base Excess ABG Hemoglobin Oxyhemoglobin Sodium Potassium Chloride Carbon Dioxide BUN 70 H Creatinine 1.5 H Glucose 121 H POC Glucose 137 H 155 H Lactic Acid Calcium Phosphorus 2.10 L D Magnesium Direct Bilirubin AST ALT Alkaline Phosphatase Lactate Dehydrogenase Troponin T C-Reactive Protein Total Protein Albumin Prealbumin Triglycerides Cholesterol LDL Cholesterol Direct HDL Cholesterol PTH Intact Urine pH Urine WBC (Auto) Urine Creatinine Urine Total Protein Fluid Total Protein Vancomycin Trough Rheumatoid Factor Complement C4 Miscellaneous Test Crossmatch 01/19/17 01/19/17 01/19/17 11:59 15:32 17:57 WBC RBC Hgb Hct MCV MCH MCHC RDW Plt Count Lymph % (Auto) [place] % (Auto) Lymph # [place] # Baso # Seg Neutrophils % Seg Neuts % (Manual) Lymphocytes % (Manual) Monocytes % (Manual) Eosinophils % (Manual) Basophils % (Manual) Nucleated RBC % Seg Neutrophils # Seg Neutrophils # Man Lymphocytes # (Manual) Monocytes # (Manual) Eosinophils # (Manual) Basophils # (Manual) PT INR Fibrinogen dRVVT Confirm Interp Factor V Activity POC ABG pH POC ABG pCO2 33.1 L POC ABG pO2 76 L ABG pO2 ABG HCO3 ABG Base Excess ABG Hemoglobin Oxyhemoglobin Sodium Potassium Chloride Carbon Dioxide BUN Creatinine Glucose POC Glucose 156 H 129 H Lactic Acid Calcium Phosphorus Magnesium Direct Bilirubin AST ALT Alkaline Phosphatase Lactate Dehydrogenase Troponin T C-Reactive Protein Total Protein Albumin Prealbumin Triglycerides Cholesterol LDL Cholesterol Direct HDL Cholesterol PTH Intact Urine pH Urine WBC (Auto) Urine Creatinine Urine Total Protein Fluid Total Protein Vancomycin Trough Rheumatoid Factor Complement C4 Miscellaneous Test Crossmatch 01/19/17 01/20/17 01/20/17 23:49 04:00 05:21 WBC RBC Hgb Hct MCV MCH MCHC RDW Plt Count Lymph % (Auto) [place] % (Auto) Lymph # [place] # Baso # Seg Neutrophils % Seg Neuts % (Manual) Lymphocytes % (Manual) Monocytes % (Manual) Eosinophils % (Manual) Basophils % (Manual) Nucleated RBC % Seg Neutrophils # Seg Neutrophils # Man Lymphocytes # (Manual) Monocytes # (Manual) Eosinophils # (Manual) Basophils # (Manual) PT INR Fibrinogen dRVVT Confirm Interp Factor V Activity POC ABG pH POC ABG pCO2 POC ABG pO2 ABG pO2 ABG HCO3 ABG Base Excess ABG Hemoglobin Oxyhemoglobin Sodium Potassium Chloride Carbon Dioxide BUN 96 H Creatinine 1.9 H Glucose 106 H POC Glucose 125 H 130 H Lactic Acid Calcium Phosphorus 2.40 L Magnesium Direct Bilirubin AST ALT Alkaline Phosphatase Lactate Dehydrogenase Troponin T C-Reactive Protein Total Protein Albumin Prealbumin Triglycerides Cholesterol LDL Cholesterol Direct HDL Cholesterol PTH Intact Urine pH Urine WBC (Auto) Urine Creatinine Urine Total Protein Fluid Total Protein Vancomycin Trough Rheumatoid Factor Complement C4 Miscellaneous Test Crossmatch 01/20/17 01/20/17 01/20/17 11:58 12:17 17:26 WBC RBC Hgb Hct MCV MCH MCHC RDW Plt Count Lymph % (Auto) [place] % (Auto) Lymph # [place] # Baso # Seg Neutrophils % Seg Neuts % (Manual) Lymphocytes % (Manual) Monocytes % (Manual) Eosinophils % (Manual) Basophils % (Manual) Nucleated RBC % Seg Neutrophils # Seg Neutrophils # Man Lymphocytes # (Manual) Monocytes # (Manual) Eosinophils # (Manual) Basophils # (Manual) PT INR Fibrinogen dRVVT Confirm Interp Factor V Activity POC ABG pH POC ABG pCO2 POC ABG pO2 70 L ABG pO2 ABG HCO3 ABG Base Excess ABG Hemoglobin Oxyhemoglobin Sodium Potassium Chloride Carbon Dioxide BUN Creatinine Glucose POC Glucose 118 H 154 H Lactic Acid Calcium Phosphorus Magnesium Direct Bilirubin AST ALT Alkaline Phosphatase Lactate Dehydrogenase Troponin T C-Reactive Protein Total Protein Albumin Prealbumin Triglycerides Cholesterol LDL Cholesterol Direct HDL Cholesterol PTH Intact Urine pH Urine WBC (Auto) Urine Creatinine Urine Total Protein Fluid Total Protein Vancomycin Trough Rheumatoid Factor Complement C4 Miscellaneous Test Crossmatch 01/21/17 01/21/17 01/21/17 04:00 04:56 11:46 WBC RBC Hgb Hct MCV MCH MCHC RDW Plt Count Lymph % (Auto) [place] % (Auto) Lymph # [place] # Baso # Seg Neutrophils % Seg Neuts % (Manual) Lymphocytes % (Manual) Monocytes % (Manual) Eosinophils % (Manual) Basophils % (Manual) Nucleated RBC % Seg Neutrophils # Seg Neutrophils # Man Lymphocytes # (Manual) Monocytes # (Manual) Eosinophils # (Manual) Basophils # (Manual) PT INR Fibrinogen dRVVT Confirm Interp Factor V Activity POC ABG pH POC ABG pCO2 POC ABG pO2 ABG pO2 ABG HCO3 ABG Base Excess ABG Hemoglobin Oxyhemoglobin Sodium Potassium 3.5 L Chloride 97.4 L Carbon Dioxide BUN 66 H Creatinine 1.4 H Glucose POC Glucose 116 H 106 H Lactic Acid Calcium Phosphorus 2.10 L Magnesium Direct Bilirubin AST ALT Alkaline Phosphatase Lactate Dehydrogenase Troponin T C-Reactive Protein Total Protein Albumin Prealbumin Triglycerides Cholesterol LDL Cholesterol Direct HDL Cholesterol PTH Intact Urine pH Urine WBC (Auto) Urine Creatinine Urine Total Protein Fluid Total Protein Vancomycin Trough Rheumatoid Factor Complement C4 Miscellaneous Test Crossmatch 01/21/17 01/21/17 01/22/17 17:25 23:49 05:35 WBC RBC Hgb Hct MCV MCH MCHC RDW Plt Count Lymph % (Auto) [place] % (Auto) Lymph # [place] # Baso # Seg Neutrophils % Seg Neuts % (Manual) Lymphocytes % (Manual) Monocytes % (Manual) Eosinophils % (Manual) Basophils % (Manual) Nucleated RBC % Seg Neutrophils # Seg Neutrophils # Man Lymphocytes # (Manual) Monocytes # (Manual) Eosinophils # (Manual) Basophils # (Manual) PT INR Fibrinogen dRVVT Confirm Interp Factor V Activity POC ABG pH POC ABG pCO2 POC ABG pO2 ABG pO2 ABG HCO3 ABG Base Excess ABG Hemoglobin Oxyhemoglobin Sodium Potassium Chloride Carbon Dioxide BUN Creatinine Glucose POC Glucose 106 H 133 H 107 H Lactic Acid Calcium Phosphorus Magnesium Direct Bilirubin AST ALT Alkaline Phosphatase Lactate Dehydrogenase Troponin T C-Reactive Protein Total Protein Albumin Prealbumin Triglycerides Cholesterol LDL Cholesterol Direct HDL Cholesterol PTH Intact Urine pH Urine WBC (Auto) Urine Creatinine Urine Total Protein Fluid Total Protein Vancomycin Trough Rheumatoid Factor Complement C4 Miscellaneous Test Crossmatch 01/22/17 01/22/17 01/22/17 07:20 07:20 11:31 WBC RBC 2.75 L Hgb 7.5 L Hct 22.7 L MCV MCH 27 L MCHC RDW 17.5 H Plt Count Lymph % (Auto) [place] % (Auto) Lymph # [place] # Baso # Seg Neutrophils % Seg Neuts % (Manual) Lymphocytes % (Manual) Monocytes % (Manual) Eosinophils % (Manual) Basophils % (Manual) Nucleated RBC % Seg Neutrophils # Seg Neutrophils # Man Lymphocytes # (Manual) Monocytes # (Manual) Eosinophils # (Manual) Basophils # (Manual) PT INR Fibrinogen dRVVT Confirm Interp Factor V Activity POC ABG pH POC ABG pCO2 POC ABG pO2 ABG pO2 ABG HCO3 ABG Base Excess ABG Hemoglobin Oxyhemoglobin Sodium Potassium 3.3 L Chloride Carbon Dioxide BUN 42 H Creatinine Glucose 105 H POC Glucose 124 H Lactic Acid Calcium Phosphorus 1.70 L Magnesium Direct Bilirubin AST ALT Alkaline Phosphatase Lactate Dehydrogenase Troponin T C-Reactive Protein Total Protein Albumin Prealbumin Triglycerides Cholesterol LDL Cholesterol Direct HDL Cholesterol PTH Intact Urine pH Urine WBC (Auto) Urine Creatinine Urine Total Protein Fluid Total Protein Vancomycin Trough Rheumatoid Factor Complement C4 Miscellaneous Test Crossmatch 01/22/17 01/22/17 01/23/17 17:16 23:35 05:35 WBC RBC Hgb Hct MCV MCH MCHC RDW Plt Count Lymph % (Auto) [place] % (Auto) Lymph # [place] # Baso # Seg Neutrophils % Seg Neuts % (Manual) Lymphocytes % (Manual) Monocytes % (Manual) Eosinophils % (Manual) Basophils % (Manual) Nucleated RBC % Seg Neutrophils # Seg Neutrophils # Man Lymphocytes # (Manual) Monocytes # (Manual) Eosinophils # (Manual) Basophils # (Manual) PT INR Fibrinogen dRVVT Confirm Interp Factor V Activity POC ABG pH POC ABG pCO2 POC ABG pO2 ABG pO2 ABG HCO3 ABG Base Excess ABG Hemoglobin Oxyhemoglobin Sodium Potassium Chloride Carbon Dioxide BUN Creatinine Glucose POC Glucose 135 H 120 H 111 H Lactic Acid Calcium Phosphorus Magnesium Direct Bilirubin AST ALT Alkaline Phosphatase Lactate Dehydrogenase Troponin T C-Reactive Protein Total Protein Albumin Prealbumin Triglycerides Cholesterol LDL Cholesterol Direct HDL Cholesterol PTH Intact Urine pH Urine WBC (Auto) Urine Creatinine Urine Total Protein Fluid Total Protein Vancomycin Trough Rheumatoid Factor Complement C4 Miscellaneous Test Crossmatch 01/23/17 01/23/17 01/23/17 06:10 17:27 23:44 WBC RBC Hgb Hct MCV MCH MCHC RDW Plt Count Lymph % (Auto) [place] % (Auto) Lymph # [place] # Baso # Seg Neutrophils % Seg Neuts % (Manual) Lymphocytes % (Manual) Monocytes % (Manual) Eosinophils % (Manual) Basophils % (Manual) Nucleated RBC % Seg Neutrophils # Seg Neutrophils # Man Lymphocytes # (Manual) Monocytes # (Manual) Eosinophils # (Manual) Basophils # (Manual) PT INR Fibrinogen dRVVT Confirm Interp Factor V Activity POC ABG pH POC ABG pCO2 POC ABG pO2 ABG pO2 ABG HCO3 ABG Base Excess ABG Hemoglobin Oxyhemoglobin Sodium Potassium 3.3 L Chloride Carbon Dioxide BUN 66 H Creatinine 1.3 H Glucose 109 H POC Glucose 120 H 115 H Lactic Acid Calcium Phosphorus 2.20 L D Magnesium Direct Bilirubin AST ALT Alkaline Phosphatase Lactate Dehydrogenase Troponin T C-Reactive Protein Total Protein Albumin Prealbumin Triglycerides Cholesterol LDL Cholesterol Direct HDL Cholesterol PTH Intact Urine pH Urine WBC (Auto) Urine Creatinine Urine Total Protein Fluid Total Protein Vancomycin Trough Rheumatoid Factor Complement C4 Miscellaneous Test Crossmatch 01/24/17 01/24/17 01/24/17 05:19 05:50 12:19 WBC RBC Hgb Hct MCV MCH MCHC RDW Plt Count Lymph % (Auto) [place] % (Auto) Lymph # [place] # Baso # Seg Neutrophils % Seg Neuts % (Manual) Lymphocytes % (Manual) Monocytes % (Manual) Eosinophils % (Manual) Basophils % (Manual) Nucleated RBC % Seg Neutrophils # Seg Neutrophils # Man Lymphocytes # (Manual) Monocytes # (Manual) Eosinophils # (Manual) Basophils # (Manual) PT INR Fibrinogen dRVVT Confirm Interp Factor V Activity POC ABG pH POC ABG pCO2 POC ABG pO2 ABG pO2 ABG HCO3 ABG Base Excess ABG Hemoglobin Oxyhemoglobin Sodium Potassium Chloride Carbon Dioxide BUN 47 H Creatinine Glucose 117 H POC Glucose 126 H 119 H Lactic Acid Calcium Phosphorus 2.30 L Magnesium 1.60 L Direct Bilirubin AST ALT Alkaline Phosphatase Lactate Dehydrogenase Troponin T C-Reactive Protein Total Protein Albumin Prealbumin Triglycerides Cholesterol LDL Cholesterol Direct HDL Cholesterol PTH Intact Urine pH Urine WBC (Auto) Urine Creatinine Urine Total Protein Fluid Total Protein Vancomycin Trough Rheumatoid Factor Complement C4 Miscellaneous Test Crossmatch 01/24/17 01/25/17 01/25/17 17:08 00:37 04:00 WBC RBC Hgb Hct MCV MCH MCHC RDW Plt Count Lymph % (Auto) [place] % (Auto) Lymph # [place] # Baso # Seg Neutrophils % Seg Neuts % (Manual) Lymphocytes % (Manual) Monocytes % (Manual) Eosinophils % (Manual) Basophils % (Manual) Nucleated RBC % Seg Neutrophils # Seg Neutrophils # Man Lymphocytes # (Manual) Monocytes # (Manual) Eosinophils # (Manual) Basophils # (Manual) PT INR Fibrinogen dRVVT Confirm Interp Factor V Activity POC ABG pH POC ABG pCO2 POC ABG pO2 ABG pO2 ABG HCO3 ABG Base Excess ABG Hemoglobin Oxyhemoglobin Sodium Potassium Chloride Carbon Dioxide BUN 72 H Creatinine 1.3 H Glucose POC Glucose 127 H 110 H Lactic Acid Calcium Phosphorus Magnesium Direct Bilirubin AST ALT Alkaline Phosphatase Lactate Dehydrogenase Troponin T C-Reactive Protein Total Protein Albumin Prealbumin Triglycerides Cholesterol LDL Cholesterol Direct HDL Cholesterol PTH Intact Urine pH Urine WBC (Auto) Urine Creatinine Urine Total Protein Fluid Total Protein Vancomycin Trough Rheumatoid Factor Complement C4 Miscellaneous Test Crossmatch 01/25/17 01/25/17 01/25/17 04:00 11:15 13:05 WBC RBC 2.49 L Hgb 6.7 L Hct 20.9 L MCV MCH 27 L MCHC RDW 18.8 H Plt Count Lymph % (Auto) [place] % (Auto) 10.1 H Lymph # [place] # 1.0 H Baso # Seg Neutrophils % Seg Neuts % (Manual) Lymphocytes % (Manual) Monocytes % (Manual) Eosinophils % (Manual) Basophils % (Manual) Nucleated RBC % Seg Neutrophils # Seg Neutrophils # Man Lymphocytes # (Manual) Monocytes # (Manual) Eosinophils # (Manual) Basophils # (Manual) PT INR Fibrinogen dRVVT Confirm Interp Factor V Activity POC ABG pH POC ABG pCO2 POC ABG pO2 ABG pO2 ABG HCO3 ABG Base Excess ABG Hemoglobin Oxyhemoglobin Sodium Potassium Chloride Carbon Dioxide BUN Creatinine Glucose POC Glucose 128 H Lactic Acid Calcium Phosphorus Magnesium Direct Bilirubin AST ALT Alkaline Phosphatase Lactate Dehydrogenase Troponin T C-Reactive Protein Total Protein Albumin Prealbumin Triglycerides Cholesterol LDL Cholesterol Direct HDL Cholesterol PTH Intact Urine pH Urine WBC (Auto) Urine Creatinine Urine Total Protein Fluid Total Protein Vancomycin Trough Rheumatoid Factor Complement C4 Miscellaneous Test Crossmatch See Detail 01/25/17 01/25/17 01/26/17 18:02 23:07 01:20 WBC RBC Hgb Hct MCV MCH MCHC RDW Plt Count Lymph % (Auto) [place] % (Auto) Lymph # [place] # Baso # Seg Neutrophils % Seg Neuts % (Manual) Lymphocytes % (Manual) Monocytes % (Manual) Eosinophils % (Manual) Basophils % (Manual) Nucleated RBC % Seg Neutrophils # Seg Neutrophils # Man Lymphocytes # (Manual) Monocytes # (Manual) Eosinophils # (Manual) Basophils # (Manual) PT INR Fibrinogen dRVVT Confirm Interp Factor V Activity POC ABG pH POC ABG pCO2 POC ABG pO2 ABG pO2 ABG HCO3 ABG Base Excess ABG Hemoglobin Oxyhemoglobin Sodium Potassium Chloride Carbon Dioxide BUN Creatinine Glucose POC Glucose 120 H 123 H 112 H Lactic Acid Calcium Phosphorus Magnesium Direct Bilirubin AST ALT Alkaline Phosphatase Lactate Dehydrogenase Troponin T C-Reactive Protein Total Protein Albumin Prealbumin Triglycerides Cholesterol LDL Cholesterol Direct HDL Cholesterol PTH Intact Urine pH Urine WBC (Auto) Urine Creatinine Urine Total Protein Fluid Total Protein Vancomycin Trough Rheumatoid Factor Complement C4 Miscellaneous Test Crossmatch 01/26/17 01/26/17 01/26/17 04:20 04:20 11:23 WBC 13.1 H RBC 3.28 L Hgb 9.0 L Hct 26.9 L D MCV MCH 27 L MCHC RDW 17.2 H Plt Count Lymph % (Auto) [place] % (Auto) 9.0 H Lymph # [place] # 1.2 H Baso # Seg Neutrophils % 73.1 H Seg Neuts % (Manual) Lymphocytes % (Manual) Monocytes % (Manual) Eosinophils % (Manual) Basophils % (Manual) Nucleated RBC % Seg Neutrophils # 9.6 H Seg Neutrophils # Man Lymphocytes # (Manual) Monocytes # (Manual) Eosinophils # (Manual) Basophils # (Manual) PT INR Fibrinogen dRVVT Confirm Interp Factor V Activity POC ABG pH POC ABG pCO2 POC ABG pO2 ABG pO2 ABG HCO3 ABG Base Excess ABG Hemoglobin Oxyhemoglobin Sodium Potassium Chloride Carbon Dioxide BUN 51 H Creatinine Glucose 117 H POC Glucose 125 H Lactic Acid Calcium Phosphorus Magnesium Direct Bilirubin AST ALT Alkaline Phosphatase Lactate Dehydrogenase Troponin T C-Reactive Protein Total Protein Albumin Prealbumin Triglycerides Cholesterol LDL Cholesterol Direct HDL Cholesterol PTH Intact Urine pH Urine WBC (Auto) Urine Creatinine Urine Total Protein Fluid Total Protein Vancomycin Trough Rheumatoid Factor Complement C4 Miscellaneous Test Crossmatch 01/26/17 01/27/17 01/27/17 17:11 00:30 04:00 WBC RBC Hgb Hct MCV MCH MCHC RDW Plt Count Lymph % (Auto) [place] % (Auto) Lymph # [place] # Baso # Seg Neutrophils % Seg Neuts % (Manual) Lymphocytes % (Manual) Monocytes % (Manual) Eosinophils % (Manual) Basophils % (Manual) Nucleated RBC % Seg Neutrophils # Seg Neutrophils # Man Lymphocytes # (Manual) Monocytes # (Manual) Eosinophils # (Manual) Basophils # (Manual) PT INR Fibrinogen dRVVT Confirm Interp Factor V Activity POC ABG pH POC ABG pCO2 POC ABG pO2 ABG pO2 ABG HCO3 ABG Base Excess ABG Hemoglobin Oxyhemoglobin Sodium Potassium Chloride 97.7 L Carbon Dioxide 21 L BUN 79 H Creatinine 1.7 H D Glucose 112 H POC Glucose 133 H 135 H Lactic Acid Calcium Phosphorus 5.00 H D Magnesium Direct Bilirubin AST ALT Alkaline Phosphatase Lactate Dehydrogenase Troponin T C-Reactive Protein Total Protein Albumin Prealbumin Triglycerides Cholesterol LDL Cholesterol Direct HDL Cholesterol PTH Intact Urine pH Urine WBC (Auto) Urine Creatinine Urine Total Protein Fluid Total Protein Vancomycin Trough Rheumatoid Factor Complement C4 Miscellaneous Test Crossmatch 01/27/17 01/27/17 01/27/17 05:12 12:18 17:25 WBC RBC Hgb Hct MCV MCH MCHC RDW Plt Count Lymph % (Auto) [place] % (Auto) Lymph # [place] # Baso # Seg Neutrophils % Seg Neuts % (Manual) Lymphocytes % (Manual) Monocytes % (Manual) Eosinophils % (Manual) Basophils % (Manual) Nucleated RBC % Seg Neutrophils # Seg Neutrophils # Man Lymphocytes # (Manual) Monocytes # (Manual) Eosinophils # (Manual) Basophils # (Manual) PT INR Fibrinogen dRVVT Confirm Interp Factor V Activity POC ABG pH POC ABG pCO2 POC ABG pO2 ABG pO2 ABG HCO3 ABG Base Excess ABG Hemoglobin Oxyhemoglobin Sodium Potassium Chloride Carbon Dioxide BUN Creatinine Glucose POC Glucose 116 H 153 H 152 H Lactic Acid Calcium Phosphorus Magnesium Direct Bilirubin AST ALT Alkaline Phosphatase Lactate Dehydrogenase Troponin T C-Reactive Protein Total Protein Albumin Prealbumin Triglycerides Cholesterol LDL Cholesterol Direct HDL Cholesterol PTH Intact Urine pH Urine WBC (Auto) Urine Creatinine Urine Total Protein Fluid Total Protein Vancomycin Trough Rheumatoid Factor Complement C4 Miscellaneous Test Crossmatch 01/27/17 01/28/17 01/28/17 23:42 04:00 04:00 WBC 14.4 H RBC 2.82 L Hgb 7.4 L Hct 23.5 L MCV MCH 26 L MCHC RDW 17.6 H Plt Count Lymph % (Auto) 10.2 L [place] % (Auto) 11.0 H Lymph # [place] # 1.6 H Baso # Seg Neutrophils % 78.0 H Seg Neuts % (Manual) Lymphocytes % (Manual) Monocytes % (Manual) Eosinophils % (Manual) Basophils % (Manual) Nucleated RBC % Seg Neutrophils # 11.3 H Seg Neutrophils # Man Lymphocytes # (Manual) Monocytes # (Manual) Eosinophils # (Manual) Basophils # (Manual) PT INR Fibrinogen dRVVT Confirm Interp Factor V Activity POC ABG pH POC ABG pCO2 POC ABG pO2 ABG pO2 ABG HCO3 ABG Base Excess ABG Hemoglobin Oxyhemoglobin Sodium Potassium Chloride Carbon Dioxide BUN 55 H Creatinine 1.3 H Glucose 114 H POC Glucose 121 H Lactic Acid Calcium Phosphorus Magnesium Direct Bilirubin AST ALT Alkaline Phosphatase Lactate Dehydrogenase Troponin T C-Reactive Protein Total Protein Albumin 1.4 L Prealbumin Triglycerides Cholesterol LDL Cholesterol Direct HDL Cholesterol PTH Intact Urine pH Urine WBC (Auto) Urine Creatinine Urine Total Protein Fluid Total Protein Vancomycin Trough Rheumatoid Factor Complement C4 Miscellaneous Test Crossmatch 01/28/17 01/28/17 01/29/17 04:59 12:30 00:02 WBC RBC Hgb Hct MCV MCH MCHC RDW Plt Count Lymph % (Auto) [place] % (Auto) Lymph # [place] # Baso # Seg Neutrophils % Seg Neuts % (Manual) Lymphocytes % (Manual) Monocytes % (Manual) Eosinophils % (Manual) Basophils % (Manual) Nucleated RBC % Seg Neutrophils # Seg Neutrophils # Man Lymphocytes # (Manual) Monocytes # (Manual) Eosinophils # (Manual) Basophils # (Manual) PT INR Fibrinogen dRVVT Confirm Interp Factor V Activity POC ABG pH POC ABG pCO2 POC ABG pO2 ABG pO2 ABG HCO3 ABG Base Excess ABG Hemoglobin Oxyhemoglobin Sodium Potassium Chloride Carbon Dioxide BUN Creatinine Glucose POC Glucose 126 H 119 H 138 H Lactic Acid Calcium Phosphorus Magnesium Direct Bilirubin AST ALT Alkaline Phosphatase Lactate Dehydrogenase Troponin T C-Reactive Protein Total Protein Albumin Prealbumin Triglycerides Cholesterol LDL Cholesterol Direct HDL Cholesterol PTH Intact Urine pH Urine WBC (Auto) Urine Creatinine Urine Total Protein Fluid Total Protein Vancomycin Trough Rheumatoid Factor Complement C4 Miscellaneous Test Crossmatch 01/29/17 01/29/17 01/29/17 04:58 06:15 11:35 WBC RBC Hgb Hct MCV MCH MCHC RDW Plt Count Lymph % (Auto) [place] % (Auto) Lymph # [place] # Baso # Seg Neutrophils % Seg Neuts % (Manual) Lymphocytes % (Manual) Monocytes % (Manual) Eosinophils % (Manual) Basophils % (Manual) Nucleated RBC % Seg Neutrophils # Seg Neutrophils # Man Lymphocytes # (Manual) Monocytes # (Manual) Eosinophils # (Manual) Basophils # (Manual) PT INR Fibrinogen dRVVT Confirm Interp Factor V Activity POC ABG pH POC ABG pCO2 POC ABG pO2 ABG pO2 ABG HCO3 ABG Base Excess ABG Hemoglobin Oxyhemoglobin Sodium Potassium Chloride Carbon Dioxide BUN 85 H Creatinine 1.7 H Glucose 105 H POC Glucose 114 H 110 H Lactic Acid Calcium Phosphorus Magnesium 2.40 H Direct Bilirubin AST ALT Alkaline Phosphatase Lactate Dehydrogenase Troponin T C-Reactive Protein Total Protein Albumin Prealbumin Triglycerides Cholesterol LDL Cholesterol Direct HDL Cholesterol PTH Intact Urine pH Urine WBC (Auto) Urine Creatinine Urine Total Protein Fluid Total Protein Vancomycin Trough Rheumatoid Factor Complement C4 Miscellaneous Test Crossmatch 01/29/17 01/29/17 01/30/17 18:24 23:41 05:12 WBC RBC Hgb Hct MCV MCH MCHC RDW Plt Count Lymph % (Auto) [place] % (Auto) Lymph # [place] # Baso # Seg Neutrophils % Seg Neuts % (Manual) Lymphocytes % (Manual) Monocytes % (Manual) Eosinophils % (Manual) Basophils % (Manual) Nucleated RBC % Seg Neutrophils # Seg Neutrophils # Man Lymphocytes # (Manual) Monocytes # (Manual) Eosinophils # (Manual) Basophils # (Manual) PT INR Fibrinogen dRVVT Confirm Interp Factor V Activity POC ABG pH POC ABG pCO2 POC ABG pO2 ABG pO2 ABG HCO3 ABG Base Excess ABG Hemoglobin Oxyhemoglobin Sodium Potassium Chloride Carbon Dioxide BUN Creatinine Glucose POC Glucose 109 H 134 H 109 H Lactic Acid Calcium Phosphorus Magnesium Direct Bilirubin AST ALT Alkaline Phosphatase Lactate Dehydrogenase Troponin T C-Reactive Protein Total Protein Albumin Prealbumin Triglycerides Cholesterol LDL Cholesterol Direct HDL Cholesterol PTH Intact Urine pH Urine WBC (Auto) Urine Creatinine Urine Total Protein Fluid Total Protein Vancomycin Trough Rheumatoid Factor Complement C4 Miscellaneous Test Crossmatch 01/30/17 01/30/17 01/30/17 11:26 17:43 23:39 WBC RBC Hgb Hct MCV MCH MCHC RDW Plt Count Lymph % (Auto) [place] % (Auto) Lymph # [place] # Baso # Seg Neutrophils % Seg Neuts % (Manual) Lymphocytes % (Manual) Monocytes % (Manual) Eosinophils % (Manual) Basophils % (Manual) Nucleated RBC % Seg Neutrophils # Seg Neutrophils # Man Lymphocytes # (Manual) Monocytes # (Manual) Eosinophils # (Manual) Basophils # (Manual) PT INR Fibrinogen dRVVT Confirm Interp Factor V Activity POC ABG pH POC ABG pCO2 POC ABG pO2 ABG pO2 ABG HCO3 ABG Base Excess ABG Hemoglobin Oxyhemoglobin Sodium Potassium Chloride Carbon Dioxide BUN Creatinine Glucose POC Glucose 135 H 143 H 122 H Lactic Acid Calcium Phosphorus Magnesium Direct Bilirubin AST ALT Alkaline Phosphatase Lactate Dehydrogenase Troponin T C-Reactive Protein Total Protein Albumin Prealbumin Triglycerides Cholesterol LDL Cholesterol Direct HDL Cholesterol PTH Intact Urine pH Urine WBC (Auto) Urine Creatinine Urine Total Protein Fluid Total Protein Vancomycin Trough Rheumatoid Factor Complement C4 Miscellaneous Test Crossmatch 01/31/17 01/31/17 01/31/17 04:00 05:40 11:12 WBC RBC Hgb Hct MCV MCH MCHC RDW Plt Count Lymph % (Auto) [place] % (Auto) Lymph # [place] # Baso # Seg Neutrophils % Seg Neuts % (Manual) Lymphocytes % (Manual) Monocytes % (Manual) Eosinophils % (Manual) Basophils % (Manual) Nucleated RBC % Seg Neutrophils # Seg Neutrophils # Man Lymphocytes # (Manual) Monocytes # (Manual) Eosinophils # (Manual) Basophils # (Manual) PT INR Fibrinogen dRVVT Confirm Interp Factor V Activity POC ABG pH POC ABG pCO2 POC ABG pO2 ABG pO2 ABG HCO3 ABG Base Excess ABG Hemoglobin Oxyhemoglobin Sodium Potassium Chloride Carbon Dioxide BUN 78 H Creatinine 1.5 H Glucose 108 H POC Glucose 123 H Lactic Acid Calcium Phosphorus Magnesium Direct Bilirubin AST ALT Alkaline Phosphatase Lactate Dehydrogenase Troponin T C-Reactive Protein 8.10 H Total Protein Albumin Prealbumin Triglycerides Cholesterol LDL Cholesterol Direct HDL Cholesterol PTH Intact Urine pH Urine WBC (Auto) Urine Creatinine Urine Total Protein Fluid Total Protein Vancomycin Trough Rheumatoid Factor Complement C4 Miscellaneous Test Crossmatch 01/31/17 01/31/17 01/31/17 11:16 17:45 17:50 WBC RBC Hgb Hct MCV MCH MCHC RDW Plt Count Lymph % (Auto) [place] % (Auto) Lymph # [place] # Baso # Seg Neutrophils % Seg Neuts % (Manual) Lymphocytes % (Manual) Monocytes % (Manual) Eosinophils % (Manual) Basophils % (Manual) Nucleated RBC % Seg Neutrophils # Seg Neutrophils # Man Lymphocytes # (Manual) Monocytes # (Manual) Eosinophils # (Manual) Basophils # (Manual) PT INR Fibrinogen dRVVT Confirm Interp Factor V Activity POC ABG pH POC ABG pCO2 POC ABG pO2 ABG pO2 ABG HCO3 ABG Base Excess ABG Hemoglobin Oxyhemoglobin Sodium Potassium Chloride Carbon Dioxide BUN Creatinine Glucose POC Glucose 119 H 111 H Lactic Acid Calcium Phosphorus Magnesium Direct Bilirubin AST ALT Alkaline Phosphatase Lactate Dehydrogenase Troponin T C-Reactive Protein Total Protein Albumin Prealbumin Triglycerides Cholesterol LDL Cholesterol Direct HDL Cholesterol PTH Intact 6.76 L Urine pH Urine WBC (Auto) Urine Creatinine Urine Total Protein Fluid Total Protein Vancomycin Trough Rheumatoid Factor Complement C4 Miscellaneous Test Crossmatch 01/31/17 02/01/17 02/01/17 23:19 05:42 09:24 WBC RBC Hgb Hct MCV MCH MCHC RDW Plt Count Lymph % (Auto) [place] % (Auto) Lymph # [place] # Baso # Seg Neutrophils % Seg Neuts % (Manual) Lymphocytes % (Manual) Monocytes % (Manual) Eosinophils % (Manual) Basophils % (Manual) Nucleated RBC % Seg Neutrophils # Seg Neutrophils # Man Lymphocytes # (Manual) Monocytes # (Manual) Eosinophils # (Manual) Basophils # (Manual) PT INR Fibrinogen dRVVT Confirm Interp Factor V Activity POC ABG pH POC ABG pCO2 POC ABG pO2 ABG pO2 ABG HCO3 ABG Base Excess ABG Hemoglobin Oxyhemoglobin Sodium Potassium Chloride Carbon Dioxide BUN Creatinine Glucose POC Glucose 118 H 122 H Lactic Acid Calcium Phosphorus Magnesium 2.60 H Direct Bilirubin AST ALT Alkaline Phosphatase Lactate Dehydrogenase Troponin T C-Reactive Protein Total Protein Albumin Prealbumin Triglycerides Cholesterol LDL Cholesterol Direct HDL Cholesterol PTH Intact Urine pH Urine WBC (Auto) Urine Creatinine Urine Total Protein Fluid Total Protein Vancomycin Trough Rheumatoid Factor Complement C4 Miscellaneous Test Crossmatch 02/01/17 02/01/17 02/02/17 09:24 12:15 07:40 WBC RBC Hgb Hct MCV MCH MCHC RDW Plt Count Lymph % (Auto) [place] % (Auto) Lymph # [place] # Baso # Seg Neutrophils % Seg Neuts % (Manual) Lymphocytes % (Manual) Monocytes % (Manual) Eosinophils % (Manual) Basophils % (Manual) Nucleated RBC % Seg Neutrophils # Seg Neutrophils # Man Lymphocytes # (Manual) Monocytes # (Manual) Eosinophils # (Manual) Basophils # (Manual) PT INR Fibrinogen dRVVT Confirm Interp Factor V Activity POC ABG pH POC ABG pCO2 POC ABG pO2 ABG pO2 ABG HCO3 ABG Base Excess ABG Hemoglobin Oxyhemoglobin Sodium Potassium Chloride Carbon Dioxide BUN 102 H 72 H Creatinine 1.9 H 1.5 H Glucose 120 H POC Glucose 156 H Lactic Acid Calcium Phosphorus Magnesium Direct Bilirubin AST ALT Alkaline Phosphatase Lactate Dehydrogenase Troponin T C-Reactive Protein Total Protein Albumin Prealbumin Triglycerides Cholesterol LDL Cholesterol Direct HDL Cholesterol PTH Intact Urine pH Urine WBC (Auto) Urine Creatinine Urine Total Protein Fluid Total Protein Vancomycin Trough Rheumatoid Factor Complement C4 Miscellaneous Test Crossmatch 02/02/17 02/02/17 02/03/17 10:16 12:11 00:08 WBC 12.0 H RBC 3.08 L Hgb 8.3 L Hct 25.6 L MCV MCH 27 L MCHC RDW 18.2 H Plt Count Lymph % (Auto) [place] % (Auto) Lymph # [place] # Baso # Seg Neutrophils % 78.4 H Seg Neuts % (Manual) Lymphocytes % (Manual) Monocytes % (Manual) Eosinophils % (Manual) Basophils % (Manual) Nucleated RBC % Seg Neutrophils # 9.4 H Seg Neutrophils # Man Lymphocytes # (Manual) Monocytes # (Manual) Eosinophils # (Manual) Basophils # (Manual) PT INR Fibrinogen dRVVT Confirm Interp Factor V Activity POC ABG pH POC ABG pCO2 POC ABG pO2 ABG pO2 ABG HCO3 ABG Base Excess ABG Hemoglobin Oxyhemoglobin Sodium Potassium Chloride Carbon Dioxide BUN Creatinine Glucose POC Glucose 110 H 120 H Lactic Acid Calcium Phosphorus Magnesium Direct Bilirubin AST ALT Alkaline Phosphatase Lactate Dehydrogenase Troponin T C-Reactive Protein Total Protein Albumin Prealbumin Triglycerides Cholesterol LDL Cholesterol Direct HDL Cholesterol PTH Intact Urine pH Urine WBC (Auto) Urine Creatinine Urine Total Protein Fluid Total Protein Vancomycin Trough Rheumatoid Factor Complement C4 Miscellaneous Test Crossmatch 02/03/17 02/03/17 02/03/17 05:41 07:38 11:31 WBC RBC Hgb Hct MCV MCH MCHC RDW Plt Count Lymph % (Auto) [place] % (Auto) Lymph # [place] # Baso # Seg Neutrophils % Seg Neuts % (Manual) Lymphocytes % (Manual) Monocytes % (Manual) Eosinophils % (Manual) Basophils % (Manual) Nucleated RBC % Seg Neutrophils # Seg Neutrophils # Man Lymphocytes # (Manual) Monocytes # (Manual) Eosinophils # (Manual) Basophils # (Manual) PT INR Fibrinogen dRVVT Confirm Interp Factor V Activity POC ABG pH POC ABG pCO2 POC ABG pO2 ABG pO2 ABG HCO3 ABG Base Excess ABG Hemoglobin Oxyhemoglobin Sodium 134 L Potassium Chloride Carbon Dioxide 21 L BUN 91 H Creatinine 1.9 H Glucose 110 H POC Glucose 119 H 119 H Lactic Acid Calcium 10.3 H Phosphorus Magnesium Direct Bilirubin AST ALT Alkaline Phosphatase Lactate Dehydrogenase Troponin T C-Reactive Protein Total Protein Albumin Prealbumin Triglycerides Cholesterol LDL Cholesterol Direct HDL Cholesterol PTH Intact Urine pH Urine WBC (Auto) Urine Creatinine Urine Total Protein Fluid Total Protein Vancomycin Trough Rheumatoid Factor Complement C4 Miscellaneous Test Crossmatch 02/03/17 02/04/17 02/04/17 17:13 04:00 05:18 WBC RBC Hgb Hct MCV MCH MCHC RDW Plt Count Lymph % (Auto) [place] % (Auto) Lymph # [place] # Baso # Seg Neutrophils % Seg Neuts % (Manual) Lymphocytes % (Manual) Monocytes % (Manual) Eosinophils % (Manual) Basophils % (Manual) Nucleated RBC % Seg Neutrophils # Seg Neutrophils # Man Lymphocytes # (Manual) Monocytes # (Manual) Eosinophils # (Manual) Basophils # (Manual) PT INR Fibrinogen dRVVT Confirm Interp Factor V Activity POC ABG pH POC ABG pCO2 POC ABG pO2 ABG pO2 ABG HCO3 ABG Base Excess ABG Hemoglobin Oxyhemoglobin Sodium 136 L Potassium Chloride Carbon Dioxide BUN 58 H Creatinine 1.3 H Glucose 103 H POC Glucose 133 H 132 H Lactic Acid Calcium Phosphorus 2.00 L D Magnesium 1.60 L Direct Bilirubin AST ALT Alkaline Phosphatase Lactate Dehydrogenase Troponin T C-Reactive Protein Total Protein Albumin Prealbumin Triglycerides Cholesterol LDL Cholesterol Direct HDL Cholesterol PTH Intact Urine pH Urine WBC (Auto) Urine Creatinine Urine Total Protein Fluid Total Protein Vancomycin Trough Rheumatoid Factor Complement C4 Miscellaneous Test Crossmatch 02/05/17 02/05/17 02/05/17 00:01 04:00 06:42 WBC RBC Hgb Hct MCV MCH MCHC RDW Plt Count Lymph % (Auto) [place] % (Auto) Lymph # [place] # Baso # Seg Neutrophils % Seg Neuts % (Manual) Lymphocytes % (Manual) Monocytes % (Manual) Eosinophils % (Manual) Basophils % (Manual) Nucleated RBC % Seg Neutrophils # Seg Neutrophils # Man Lymphocytes # (Manual) Monocytes # (Manual) Eosinophils # (Manual) Basophils # (Manual) PT INR Fibrinogen dRVVT Confirm Interp Factor V Activity POC ABG pH POC ABG pCO2 POC ABG pO2 ABG pO2 ABG HCO3 ABG Base Excess ABG Hemoglobin Oxyhemoglobin Sodium Potassium Chloride Carbon Dioxide BUN 83 H Creatinine 1.8 H Glucose POC Glucose 119 H 110 H Lactic Acid Calcium 10.7 H Phosphorus Magnesium Direct Bilirubin AST ALT Alkaline Phosphatase Lactate Dehydrogenase Troponin T C-Reactive Protein Total Protein Albumin Prealbumin Triglycerides Cholesterol LDL Cholesterol Direct HDL Cholesterol PTH Intact Urine pH Urine WBC (Auto) Urine Creatinine Urine Total Protein Fluid Total Protein Vancomycin Trough Rheumatoid Factor Complement C4 Miscellaneous Test Crossmatch 02/05/17 02/05/17 02/05/17 09:59 11:47 23:44 WBC RBC 2.69 L Hgb 7.2 L Hct 22.5 L MCV MCH 27 L MCHC RDW 18.6 H Plt Count Lymph % (Auto) [place] % (Auto) 9.2 H Lymph # [place] # 0.9 H Baso # Seg Neutrophils % Seg Neuts % (Manual) Lymphocytes % (Manual) Monocytes % (Manual) Eosinophils % (Manual) Basophils % (Manual) Nucleated RBC % Seg Neutrophils # Seg Neutrophils # Man Lymphocytes # (Manual) Monocytes # (Manual) Eosinophils # (Manual) Basophils # (Manual) PT INR Fibrinogen dRVVT Confirm Interp Factor V Activity POC ABG pH POC ABG pCO2 POC ABG pO2 ABG pO2 ABG HCO3 ABG Base Excess ABG Hemoglobin Oxyhemoglobin Sodium Potassium Chloride Carbon Dioxide BUN Creatinine Glucose POC Glucose 130 H 123 H Lactic Acid Calcium Phosphorus Magnesium Direct Bilirubin AST ALT Alkaline Phosphatase Lactate Dehydrogenase Troponin T C-Reactive Protein Total Protein Albumin Prealbumin Triglycerides Cholesterol LDL Cholesterol Direct HDL Cholesterol PTH Intact Urine pH Urine WBC (Auto) Urine Creatinine Urine Total Protein Fluid Total Protein Vancomycin Trough Rheumatoid Factor Complement C4 Miscellaneous Test Crossmatch 02/06/17 02/06/17 02/06/17 04:45 05:58 12:01 WBC RBC Hgb Hct MCV MCH MCHC RDW Plt Count Lymph % (Auto) [place] % (Auto) Lymph # [place] # Baso # Seg Neutrophils % Seg Neuts % (Manual) Lymphocytes % (Manual) Monocytes % (Manual) Eosinophils % (Manual) Basophils % (Manual) Nucleated RBC % Seg Neutrophils # Seg Neutrophils # Man Lymphocytes # (Manual) Monocytes # (Manual) Eosinophils # (Manual) Basophils # (Manual) PT INR Fibrinogen dRVVT Confirm Interp Factor V Activity POC ABG pH POC ABG pCO2 POC ABG pO2 ABG pO2 ABG HCO3 ABG Base Excess ABG Hemoglobin Oxyhemoglobin Sodium Potassium Chloride Carbon Dioxide BUN 101 H Creatinine 2.0 H Glucose 102 H POC Glucose 115 H 132 H Lactic Acid Calcium 10.6 H Phosphorus Magnesium Direct Bilirubin AST ALT Alkaline Phosphatase 199 H Lactate Dehydrogenase Troponin T C-Reactive Protein Total Protein Albumin 1.4 L Prealbumin Triglycerides Cholesterol LDL Cholesterol Direct HDL Cholesterol PTH Intact Urine pH Urine WBC (Auto) Urine Creatinine Urine Total Protein Fluid Total Protein Vancomycin Trough Rheumatoid Factor Complement C4 Miscellaneous Test Crossmatch 02/06/17 02/06/17 02/07/17 17:41 23:32 05:04 WBC RBC Hgb Hct MCV MCH MCHC RDW Plt Count Lymph % (Auto) [place] % (Auto) Lymph # [place] # Baso # Seg Neutrophils % Seg Neuts % (Manual) Lymphocytes % (Manual) Monocytes % (Manual) Eosinophils % (Manual) Basophils % (Manual) Nucleated RBC % Seg Neutrophils # Seg Neutrophils # Man Lymphocytes # (Manual) Monocytes # (Manual) Eosinophils # (Manual) Basophils # (Manual) PT INR Fibrinogen dRVVT Confirm Interp Factor V Activity POC ABG pH POC ABG pCO2 POC ABG pO2 ABG pO2 ABG HCO3 ABG Base Excess ABG Hemoglobin Oxyhemoglobin Sodium Potassium Chloride Carbon Dioxide BUN Creatinine Glucose POC Glucose 134 H 128 H 119 H Lactic Acid Calcium Phosphorus Magnesium Direct Bilirubin AST ALT Alkaline Phosphatase Lactate Dehydrogenase Troponin T C-Reactive Protein Total Protein Albumin Prealbumin Triglycerides Cholesterol LDL Cholesterol Direct HDL Cholesterol PTH Intact Urine pH Urine WBC (Auto) Urine Creatinine Urine Total Protein Fluid Total Protein Vancomycin Trough Rheumatoid Factor Complement C4 Miscellaneous Test Crossmatch 02/07/17 02/07/17 02/07/17 06:30 11:20 17:13 WBC RBC Hgb Hct MCV MCH MCHC RDW Plt Count Lymph % (Auto) [place] % (Auto) Lymph # [place] # Baso # Seg Neutrophils % Seg Neuts % (Manual) Lymphocytes % (Manual) Monocytes % (Manual) Eosinophils % (Manual) Basophils % (Manual) Nucleated RBC % Seg Neutrophils # Seg Neutrophils # Man Lymphocytes # (Manual) Monocytes # (Manual) Eosinophils # (Manual) Basophils # (Manual) PT INR Fibrinogen dRVVT Confirm Interp Factor V Activity POC ABG pH POC ABG pCO2 POC ABG pO2 ABG pO2 ABG HCO3 ABG Base Excess ABG Hemoglobin Oxyhemoglobin Sodium Potassium 3.4 L Chloride Carbon Dioxide BUN 69 H Creatinine 1.5 H Glucose 105 H POC Glucose 117 H 110 H Lactic Acid Calcium Phosphorus Magnesium 1.50 L Direct Bilirubin AST ALT Alkaline Phosphatase Lactate Dehydrogenase Troponin T C-Reactive Protein Total Protein Albumin Prealbumin Triglycerides Cholesterol LDL Cholesterol Direct HDL Cholesterol PTH Intact Urine pH Urine WBC (Auto) Urine Creatinine Urine Total Protein Fluid Total Protein Vancomycin Trough Rheumatoid Factor Complement C4 Miscellaneous Test Crossmatch 02/07/17 02/08/17 02/08/17 20:47 04:00 11:43 WBC RBC Hgb Hct MCV MCH MCHC RDW Plt Count Lymph % (Auto) [place] % (Auto) Lymph # [place] # Baso # Seg Neutrophils % Seg Neuts % (Manual) Lymphocytes % (Manual) Monocytes % (Manual) Eosinophils % (Manual) Basophils % (Manual) Nucleated RBC % Seg Neutrophils # Seg Neutrophils # Man Lymphocytes # (Manual) Monocytes # (Manual) Eosinophils # (Manual) Basophils # (Manual) PT INR Fibrinogen dRVVT Confirm Interp Factor V Activity POC ABG pH POC ABG pCO2 POC ABG pO2 ABG pO2 ABG HCO3 ABG Base Excess ABG Hemoglobin Oxyhemoglobin Sodium Potassium Chloride Carbon Dioxide BUN 86 H Creatinine 1.7 H Glucose POC Glucose 115 H 122 H Lactic Acid Calcium Phosphorus Magnesium 1.60 L Direct Bilirubin AST ALT Alkaline Phosphatase Lactate Dehydrogenase Troponin T C-Reactive Protein Total Protein Albumin Prealbumin Triglycerides Cholesterol LDL Cholesterol Direct HDL Cholesterol PTH Intact Urine pH Urine WBC (Auto) Urine Creatinine Urine Total Protein Fluid Total Protein Vancomycin Trough Rheumatoid Factor Complement C4 Miscellaneous Test Crossmatch 02/08/17 02/09/17 02/09/17 17:36 05:44 11:30 WBC RBC Hgb Hct MCV MCH MCHC RDW Plt Count Lymph % (Auto) [place] % (Auto) Lymph # [place] # Baso # Seg Neutrophils % Seg Neuts % (Manual) Lymphocytes % (Manual) Monocytes % (Manual) Eosinophils % (Manual) Basophils % (Manual) Nucleated RBC % Seg Neutrophils # Seg Neutrophils # Man Lymphocytes # (Manual) Monocytes # (Manual) Eosinophils # (Manual) Basophils # (Manual) PT INR Fibrinogen dRVVT Confirm Interp Factor V Activity POC ABG pH POC ABG pCO2 POC ABG pO2 ABG pO2 ABG HCO3 ABG Base Excess ABG Hemoglobin Oxyhemoglobin Sodium Potassium Chloride Carbon Dioxide BUN Creatinine Glucose POC Glucose 125 H 117 H 120 H Lactic Acid Calcium Phosphorus Magnesium Direct Bilirubin AST ALT Alkaline Phosphatase Lactate Dehydrogenase Troponin T C-Reactive Protein Total Protein Albumin Prealbumin Triglycerides Cholesterol LDL Cholesterol Direct HDL Cholesterol PTH Intact Urine pH Urine WBC (Auto) Urine Creatinine Urine Total Protein Fluid Total Protein Vancomycin Trough Rheumatoid Factor Complement C4 Miscellaneous Test Crossmatch 02/09/17 02/10/17 02/10/17 23:45 05:45 05:50 WBC RBC Hgb Hct MCV MCH MCHC RDW Plt Count Lymph % (Auto) [place] % (Auto) Lymph # [place] # Baso # Seg Neutrophils % Seg Neuts % (Manual) Lymphocytes % (Manual) Monocytes % (Manual) Eosinophils % (Manual) Basophils % (Manual) Nucleated RBC % Seg Neutrophils # Seg Neutrophils # Man Lymphocytes # (Manual) Monocytes # (Manual) Eosinophils # (Manual) Basophils # (Manual) PT INR Fibrinogen dRVVT Confirm Interp Factor V Activity POC ABG pH POC ABG pCO2 POC ABG pO2 ABG pO2 ABG HCO3 ABG Base Excess ABG Hemoglobin Oxyhemoglobin Sodium Potassium Chloride Carbon Dioxide BUN 85 H Creatinine 1.8 H Glucose 109 H POC Glucose 114 H 189 H Lactic Acid Calcium Phosphorus Magnesium 2.50 H Direct Bilirubin AST ALT Alkaline Phosphatase Lactate Dehydrogenase Troponin T C-Reactive Protein Total Protein Albumin Prealbumin Triglycerides Cholesterol LDL Cholesterol Direct HDL Cholesterol PTH Intact Urine pH Urine WBC (Auto) Urine Creatinine Urine Total Protein Fluid Total Protein Vancomycin Trough Rheumatoid Factor Complement C4 Miscellaneous Test Crossmatch 02/10/17 02/10/17 02/10/17 05:51 11:55 17:42 WBC RBC Hgb Hct MCV MCH MCHC RDW Plt Count Lymph % (Auto) [place] % (Auto) Lymph # [place] # Baso # Seg Neutrophils % Seg Neuts % (Manual) Lymphocytes % (Manual) Monocytes % (Manual) Eosinophils % (Manual) Basophils % (Manual) Nucleated RBC % Seg Neutrophils # Seg Neutrophils # Man Lymphocytes # (Manual) Monocytes # (Manual) Eosinophils # (Manual) Basophils # (Manual) PT INR Fibrinogen dRVVT Confirm Interp Factor V Activity POC ABG pH POC ABG pCO2 POC ABG pO2 ABG pO2 ABG HCO3 ABG Base Excess ABG Hemoglobin Oxyhemoglobin Sodium Potassium Chloride Carbon Dioxide BUN Creatinine Glucose POC Glucose 106 H 146 H 132 H Lactic Acid Calcium Phosphorus Magnesium Direct Bilirubin AST ALT Alkaline Phosphatase Lactate Dehydrogenase Troponin T C-Reactive Protein Total Protein Albumin Prealbumin Triglycerides Cholesterol LDL Cholesterol Direct HDL Cholesterol PTH Intact Urine pH Urine WBC (Auto) Urine Creatinine Urine Total Protein Fluid Total Protein Vancomycin Trough Rheumatoid Factor Complement C4 Miscellaneous Test Crossmatch 02/10/17 02/11/17 02/11/17 23:43 04:08 05:34 WBC RBC Hgb Hct MCV MCH MCHC RDW Plt Count Lymph % (Auto) [place] % (Auto) Lymph # [place] # Baso # Seg Neutrophils % Seg Neuts % (Manual) Lymphocytes % (Manual) Monocytes % (Manual) Eosinophils % (Manual) Basophils % (Manual) Nucleated RBC % Seg Neutrophils # Seg Neutrophils # Man Lymphocytes # (Manual) Monocytes # (Manual) Eosinophils # (Manual) Basophils # (Manual) PT INR Fibrinogen dRVVT Confirm Interp Factor V Activity POC ABG pH POC ABG pCO2 POC ABG pO2 ABG pO2 ABG HCO3 ABG Base Excess ABG Hemoglobin Oxyhemoglobin Sodium 136 L Potassium Chloride Carbon Dioxide BUN 65 H Creatinine 1.7 H Glucose 105 H POC Glucose 130 H 113 H Lactic Acid Calcium Phosphorus Magnesium Direct Bilirubin AST ALT Alkaline Phosphatase Lactate Dehydrogenase Troponin T C-Reactive Protein Total Protein Albumin Prealbumin Triglycerides Cholesterol LDL Cholesterol Direct HDL Cholesterol PTH Intact Urine pH Urine WBC (Auto) Urine Creatinine Urine Total Protein Fluid Total Protein Vancomycin Trough Rheumatoid Factor Complement C4 Miscellaneous Test Crossmatch 02/11/17 02/11/17 02/12/17 11:56 23:18 06:19 WBC RBC Hgb Hct MCV MCH MCHC RDW Plt Count Lymph % (Auto) [place] % (Auto) Lymph # [place] # Baso # Seg Neutrophils % Seg Neuts % (Manual) Lymphocytes % (Manual) Monocytes % (Manual) Eosinophils % (Manual) Basophils % (Manual) Nucleated RBC % Seg Neutrophils # Seg Neutrophils # Man Lymphocytes # (Manual) Monocytes # (Manual) Eosinophils # (Manual) Basophils # (Manual) PT INR Fibrinogen dRVVT Confirm Interp Factor V Activity POC ABG pH POC ABG pCO2 POC ABG pO2 ABG pO2 ABG HCO3 ABG Base Excess ABG Hemoglobin Oxyhemoglobin Sodium 136 L Potassium Chloride 97.1 L Carbon Dioxide BUN 93 H Creatinine 2.4 H Glucose POC Glucose 126 H 119 H Lactic Acid Calcium 11.0 H Phosphorus Magnesium Direct Bilirubin AST ALT Alkaline Phosphatase Lactate Dehydrogenase Troponin T C-Reactive Protein Total Protein Albumin Prealbumin Triglycerides Cholesterol LDL Cholesterol Direct HDL Cholesterol PTH Intact Urine pH Urine WBC (Auto) Urine Creatinine Urine Total Protein Fluid Total Protein Vancomycin Trough Rheumatoid Factor Complement C4 Miscellaneous Test Crossmatch 02/12/17 02/12/17 02/12/17 08:00 10:25 11:42 WBC 15.4 H RBC 2.63 L Hgb 6.9 L Hct 22.6 L MCV MCH 26 L MCHC RDW 20.5 H Plt Count Lymph % (Auto) [place] % (Auto) Lymph # [place] # Baso # Seg Neutrophils % Seg Neuts % (Manual) Lymphocytes % (Manual) Monocytes % (Manual) Eosinophils % (Manual) Basophils % (Manual) Nucleated RBC % Seg Neutrophils # Seg Neutrophils # Man Lymphocytes # (Manual) Monocytes # (Manual) Eosinophils # (Manual) Basophils # (Manual) PT INR Fibrinogen dRVVT Confirm Interp Factor V Activity POC ABG pH POC ABG pCO2 POC ABG pO2 ABG pO2 ABG HCO3 ABG Base Excess ABG Hemoglobin Oxyhemoglobin Sodium Potassium Chloride Carbon Dioxide BUN Creatinine Glucose POC Glucose 142 H Lactic Acid Calcium Phosphorus Magnesium Direct Bilirubin AST ALT Alkaline Phosphatase Lactate Dehydrogenase Troponin T C-Reactive Protein Total Protein Albumin Prealbumin Triglycerides Cholesterol LDL Cholesterol Direct HDL Cholesterol PTH Intact Urine pH Urine WBC (Auto) Urine Creatinine Urine Total Protein Fluid Total Protein Vancomycin Trough Rheumatoid Factor Complement C4 Miscellaneous Test Crossmatch See Detail 02/12/17 02/13/17 02/13/17 18:04 00:04 05:00 WBC RBC Hgb Hct MCV MCH MCHC RDW Plt Count Lymph % (Auto) [place] % (Auto) Lymph # [place] # Baso # Seg Neutrophils % Seg Neuts % (Manual) Lymphocytes % (Manual) Monocytes % (Manual) Eosinophils % (Manual) Basophils % (Manual) Nucleated RBC % Seg Neutrophils # Seg Neutrophils # Man Lymphocytes # (Manual) Monocytes # (Manual) Eosinophils # (Manual) Basophils # (Manual) PT INR Fibrinogen dRVVT Confirm Interp Factor V Activity POC ABG pH POC ABG pCO2 POC ABG pO2 ABG pO2 ABG HCO3 ABG Base Excess ABG Hemoglobin Oxyhemoglobin Sodium 134 L Potassium Chloride 96.1 L Carbon Dioxide 20 L BUN 125 H Creatinine 3.0 H Glucose 111 H POC Glucose 135 H 109 H Lactic Acid Calcium 11.3 H Phosphorus Magnesium Direct Bilirubin AST ALT Alkaline Phosphatase Lactate Dehydrogenase Troponin T C-Reactive Protein Total Protein Albumin Prealbumin Triglycerides Cholesterol LDL Cholesterol Direct HDL Cholesterol PTH Intact Urine pH Urine WBC (Auto) Urine Creatinine Urine Total Protein Fluid Total Protein Vancomycin Trough Rheumatoid Factor Complement C4 Miscellaneous Test Crossmatch 02/13/17 02/13/17 02/13/17 05:00 05:28 12:03 WBC 11.9 H RBC 2.92 L Hgb 7.8 L Hct 25.2 L MCV MCH 27 L MCHC RDW 19.3 H Plt Count Lymph % (Auto) [place] % (Auto) Lymph # [place] # Baso # Seg Neutrophils % Seg Neuts % (Manual) Lymphocytes % (Manual) Monocytes % (Manual) Eosinophils % (Manual) Basophils % (Manual) Nucleated RBC % Seg Neutrophils # Seg Neutrophils # Man Lymphocytes # (Manual) Monocytes # (Manual) Eosinophils # (Manual) Basophils # (Manual) PT INR Fibrinogen dRVVT Confirm Interp Factor V Activity POC ABG pH POC ABG pCO2 POC ABG pO2 ABG pO2 ABG HCO3 ABG Base Excess ABG Hemoglobin Oxyhemoglobin Sodium Potassium Chloride Carbon Dioxide BUN Creatinine Glucose POC Glucose 124 H 160 H Lactic Acid Calcium Phosphorus Magnesium Direct Bilirubin AST ALT Alkaline Phosphatase Lactate Dehydrogenase Troponin T C-Reactive Protein Total Protein Albumin Prealbumin Triglycerides Cholesterol LDL Cholesterol Direct HDL Cholesterol PTH Intact Urine pH Urine WBC (Auto) Urine Creatinine Urine Total Protein Fluid Total Protein Vancomycin Trough Rheumatoid Factor Complement C4 Miscellaneous Test Crossmatch 02/13/17 02/14/17 02/14/17 18:09 06:16 08:08 WBC 15.2 H RBC 2.97 L Hgb 8.1 L Hct 26.3 L MCV MCH MCHC RDW 19.3 H Plt Count Lymph % (Auto) [place] % (Auto) Lymph # [place] # Baso # Seg Neutrophils % Seg Neuts % (Manual) Lymphocytes % (Manual) Monocytes % (Manual) Eosinophils % (Manual) Basophils % (Manual) Nucleated RBC % Seg Neutrophils # Seg Neutrophils # Man Lymphocytes # (Manual) Monocytes # (Manual) Eosinophils # (Manual) Basophils # (Manual) PT INR Fibrinogen dRVVT Confirm Interp Factor V Activity POC ABG pH POC ABG pCO2 POC ABG pO2 ABG pO2 ABG HCO3 ABG Base Excess ABG Hemoglobin Oxyhemoglobin Sodium Potassium Chloride Carbon Dioxide BUN Creatinine Glucose POC Glucose 110 H 112 H Lactic Acid Calcium Phosphorus Magnesium Direct Bilirubin AST ALT Alkaline Phosphatase Lactate Dehydrogenase Troponin T C-Reactive Protein Total Protein Albumin Prealbumin Triglycerides Cholesterol LDL Cholesterol Direct HDL Cholesterol PTH Intact Urine pH Urine WBC (Auto) Urine Creatinine Urine Total Protein Fluid Total Protein Vancomycin Trough Rheumatoid Factor Complement C4 Miscellaneous Test Crossmatch 02/14/17 02/14/17 02/15/17 08:08 17:41 04:15 WBC RBC Hgb Hct MCV MCH MCHC RDW Plt Count Lymph % (Auto) [place] % (Auto) Lymph # [place] # Baso # Seg Neutrophils % Seg Neuts % (Manual) Lymphocytes % (Manual) Monocytes % (Manual) Eosinophils % (Manual) Basophils % (Manual) Nucleated RBC % Seg Neutrophils # Seg Neutrophils # Man Lymphocytes # (Manual) Monocytes # (Manual) Eosinophils # (Manual) Basophils # (Manual) PT INR Fibrinogen dRVVT Confirm Interp Factor V Activity POC ABG pH POC ABG pCO2 POC ABG pO2 ABG pO2 ABG HCO3 ABG Base Excess ABG Hemoglobin Oxyhemoglobin Sodium Potassium Chloride Carbon Dioxide 18 L 21 L BUN 79 H 113 H Creatinine 2.1 H 2.8 H Glucose POC Glucose 118 H Lactic Acid Calcium 10.7 H Phosphorus 1.70 L D Magnesium 1.60 L Direct Bilirubin AST ALT Alkaline Phosphatase Lactate Dehydrogenase Troponin T C-Reactive Protein Total Protein Albumin Prealbumin Triglycerides Cholesterol LDL Cholesterol Direct HDL Cholesterol PTH Intact Urine pH Urine WBC (Auto) Urine Creatinine Urine Total Protein Fluid Total Protein Vancomycin Trough Rheumatoid Factor Complement C4 Miscellaneous Test Crossmatch 02/15/17 06:06 WBC RBC Hgb Hct MCV MCH MCHC RDW Plt Count Lymph % (Auto) [place] % (Auto) Lymph # [place] # Baso # Seg Neutrophils % Seg Neuts % (Manual) Lymphocytes % (Manual) Monocytes % (Manual) Eosinophils % (Manual) Basophils % (Manual) Nucleated RBC % Seg Neutrophils # Seg Neutrophils # Man Lymphocytes # (Manual) Monocytes # (Manual) Eosinophils # (Manual) Basophils # (Manual) PT INR Fibrinogen dRVVT Confirm Interp Factor V Activity POC ABG pH POC ABG pCO2 POC ABG pO2 ABG pO2 ABG HCO3 ABG Base Excess ABG Hemoglobin Oxyhemoglobin Sodium Potassium Chloride Carbon Dioxide BUN Creatinine Glucose POC Glucose 115 H Lactic Acid Calcium Phosphorus Magnesium Direct Bilirubin AST ALT Alkaline Phosphatase Lactate Dehydrogenase Troponin T C-Reactive Protein Total Protein Albumin Prealbumin Triglycerides Cholesterol LDL Cholesterol Direct HDL Cholesterol PTH Intact Urine pH Urine WBC (Auto) Urine Creatinine Urine Total Protein Fluid Total Protein Vancomycin Trough Rheumatoid Factor Complement C4 Miscellaneous Test Crossmatch Allied health notes reviewed: RT (Has been on PS 15/, no desaturations today)
--- NOTE | 2017-02-15 11:30 | Progress Note ---
Assessment and Plan Assessment: 1) Recurrent SIRS: new fever- Likely due to perforated bowel 2) History of Peritonitis: from gastric perforation from dislodged PEG with significant ascites -S/P exlap, repair of gastric perforation with wedge gastrectomy, abdominal washout, drain placement on 10/05 3) History of Candidemia: -Blood cultures positive for Silvia albicans on 09/23 and 09/25 -Blood cultures negative on 09/30 -PICC line changed on 10/03 -Source ? gastric perf (PEG placed on 09/20) +/- TPN +/- central lines -TTE 10/07 no vegetations -PICC exchanged on 10/03 -fully treated with micafungin for 14 days last day 10/13 4) History CA-UTI s/p gutierrez exchanged 5) Diarrhea - ? etiology ? antibiotic-induced, not better. 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 from GI bleed 13) Recent abdominal wall abscess at surgical site-treated 14 ) Recent Enterococcal bacteremia from PICC line infection. 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 -S/P debridement at bedside - new wound cx 01/24 +Proteus and MDR Pseudomonas (resistant to meropenem and cefepime/sensitive to ceftazidime) and wound VAC placement -CRP=24 --> 8 16) Presumed VAP: sputum + MDR Pseudomonas / Proteus / pleural effusion s/p thoracentesis 17) Resp failure - better 18) Perforated bowel: Ct showed presumed perf bowel with free air Plan: -continue ceftazidime IV total 3 weeks until 02/20/17 - initially started for sacral osteo -add flagyl and fluconazole -pt was made DNR - unfortunately very poor prognosis. -continue wound care -monitor fever Thank you Dr Means or your consultation, will follow up with you. Pauline Carias MD Infectious Diseases Specialist [facility] ([facility] ([facility] M [phone] O [phone] Subjective Date of service: 12/27/17 Principal diagnosis: Acute resp failure on MVS; S/P Acute CVA; Acute Encephalopathy; JUANITA Interval history: Interval history: remains on the vent, tachy on monitor, tmax 100.7 Microbiology: Blood cultures: 09/13 neg 8/ Silvia albicans 09/25 Silvia 09/29 neg 10/07 neg 11/05 neg 11/07 ngtd 10/3 E faecalis 1 of 4 bottles 11/25 neg 12/27 neg 01/09 ngtd Urine cultures: 09/10 neg 09/13 neg 8/ 10-100K mixed species 10/07 neg 11/05 VRE 11/07 mixed bacteria Respiratory cultures: 09/07 neg 09/13 neg 09/23 neg 11/07 MDR Pseudomonas 11/21 tracheal + VRE 01/09 Pseudomonas x 3 and Proteues Pleural effusion: ngtd Wound cultures: 10/17 abd wall wound purulence + Pseudomonas MDR 01/24 GNRs Stool cultures: cath tip 11/07 + DATA [employer] Current Antimicrobials: ceftaz 01/30 Previous Antimicrobials: Zosyn 10/07 Vancomycin PO 10/01 Metronidazole 09/25 Micafungin 09/27-10/13 Meropenem 10/10 Vanco 10/17 zosyn 10/21 Cefepime 11/10 vancomyin 11/07 fluconazole 10/19 cefepime 10/29levaquin 11/05 vanco 11/23 meropenem 01/08 Objective - Exam Narrative Exam: General appearance: somnolent non communicative, on the vent via trach in mild resp distress, no following commands Eyes: anicteric sclera, moist conjunctivae; PERRLA HENT: Atraumatic; oropharynx limited; Normal external ears. +NGT with greenish secretion Neck: +trach in place; supple, no thyromegaly or lymphadenopathy Lungs: brit coarse BS CV: tachy Abdomen: Soft, tender, +old PEG site no drainage. +iliostomy. Right sided Surgical site x 2 with ostomy bag draining small amount yellowish secretion Extremities: +peripheral edema Skin: sacral area wounds - per wound care STAGE 4 PRESSURE INJURY TO SACRAL MEASURES 7.5X6X2.5, WITH UNDERMINING FROM @9-1 OCLOCK-2.8CM-ULCER CLEANED WITH WOUND PLATFORM ARCHITECT-ULCER NEW - Sacrum wound measuring 9x11cm. Necrotic tissue noted on the wound edges and in the wound bed Psych: somnolent . Neuro: alert non verbal on the vent. Lines: PICC / gutierrez - Constitutional Vitals: Vital Signs Temp Pulse Resp BP Pulse Ox 98.6 F 133 H 26 H 92/53 99 02/15/17 11:00 02/15/17 11:10 02/15/17 11:00 02/15/17 11:10 02/15/17 11:00 Temperature -Last 24 Hours Temperature 98.6 F Temperature 98.6 F Temperature 100.0 F Temperature 99.3 F Temperature 98.9 F Temperature 97.3 F Temperature 100.7 F - Labs CBC & Chem 7: 02/14/17 08:08 02/15/17 04:15 Labs: Abnormal lab results 02/14/17 02/15/17 02/15/17 Range/Units 17:41 04:15 06:06 Carbon Dioxide 21 L (22-30) mmol/L BUN 113 H (7-17) mg/dL Creatinine 2.8 H (0.7-1.2) mg/dL POC Glucose 118 H 115 H (70-105) Calcium 10.7 H (8.4-10.2) mg/dL
[2017-02-15] MEDS: DURAGESIC TD SCH (12:11)
[2017-02-15] MEDS: LEVOPHED DRIP 4 MG/NS 250 ML 4 MG/250 ML BAG IV SCH ×2 (12:15→22:49)
[2017-02-15] MEDS: HEPARIN IV PRN (14:30)
[2017-02-15] MEDS: FLAGYL 500 MG/100 ML 500 MG/100 ML BAG IV SCH ×2 (15:26→22:40)
[2017-02-15] MEDS: TRANSDERM-SCOP TD SCH (15:27)
[2017-02-15] MEDS: DIFLUCAN 200 MG/100 ML BAG IV SCH (16:33)
[2017-02-15] MEDS: LOPRESSOR IV PRN (16:48)
[2017-02-15] MEDS ORDERED: CORDARONE 150 MG in D5W 97 ML IV ONE (17:15)
--- NOTE | 2017-02-15 17:17 | Progress Note ---
Assessment and Plan Assessment and plan: Patient is 46-year-old woman with a history of hypertension, diabetes, asthma, hyperlipidemia, chronic kidney disease and anxiety , who was brought in by family because, she couldn't get her words out, her face was also twisted, she was admitted for acute CVA and accelerated hypertension, she had a hx of poor adherence with her medications, and uncontrolled htn. Patient's SBP on admission was noted be greater than 260. TPA was started but this was discontinued after 5 minutes because her blood pressure became uncontrolled. The TPA was not initiated again because the patient was outside the TPA window. Bowel P Status post cardiac arrest , 11/21/16 on Mechanical ventilation >96 hrs - Received CPR and was resuscitated. - Patient is on amiodarone. Fever - resolved - Patient was initially treated with Abx - s/p R thoracentesis on 11/14, 240cc of serous fluid removed, cx of fluid was negative - Stool negative for C. difficile Severe Sepsis with septic shock - Patient has episode of fever and leukocytosis -Recurrent Leukocytosis, with Meropenem restarted, due to continued sacral decubitus. Surgical wound infection/gram-negative sepsis/candidemia/peritonitis - On TPN JUANITA, ESRD - discussed with Dr Wadsworth - on HD - Cr 1.9 today Acute CVA with infarct - Neurology input appreciated - CT shows continued evolution of left MCA infarct with slight mass effect and edema, and there is no hemorrhage - PRINCE showed hyperdynamic with ef of 75%, neither clot nor septal defect seen - MRA Brain shows near complete occlusion of M2 and M3 of the left MCA - Repeat CT scan done on 09/11, shows stable findings - carotid doppler negative - Echo shows preserved systolic function but does show some left ventricular diastolic dysfunction - continue asa and statin Persistent vegetative state - This patient's needs placement at SNF - She was denied for LTACH Acute hypoxic respiratory failure requiring MV >96hrs - Status post tracheostomy, was on T piece Nosocomial acquired aspiration pneumonia/sepsis/UTI - Finished a course of antibiotics Asthma/COPD exacerbation - ON trach, mechanical ventilation >96 hrs Status Post CVA Bilateral pleural effusion, s/p right thoracentesis A. fib with RVR Diabetes type 2. Continue sliding-scale regular insulin and Accu-Cheks. Hyperlipidemia. Continue statin Nutrition - TPN Anemia requiring multiple transfusions/acute blood loss - currently stable - Check AM labs - Will transfuse if it is below 7 Sacral decubitus ulcer - Status post debridement Disposition. Very poor prognosis. Ethics consult has been placed, will await there input. Cannot reach family, multiple calls placed. Nursing staff on the look out for family and will notify physician. 02/12/17: Persistent vomiting. Patient clinically unchanged since my last visit. CT abdomen obtained, shows possible bowel perforation. I discussed with Surgeon and we individually spoke to family. Patients son and brother do not want any surgery, they will like her comfortable but no hospice and no Resuscitation efforts. Patient made DNR Per family request. Nursing staff notified. 02/15/17: Acute on chronic Hypoxic Respiratory failure Afib with RVR- complicated BY hypotensive episode. Rate ranging 130-160- Sustaining today around 150 and getting worse by the day. * START ON AMIODARON DRIP. Peforated Abdomen ESRD SHOCK LIKE STATE OVERNIGHT, REQUIRING BOLUS. * Reduce pain medication use * complex infectious process cannot be ruled out, will continue to monitor. Doubt utility of Abx at this time considering lack of curatvie measures. will discuss with ID. Hypophos/hypomag. * Resplace. * Remains critically ill. Continue supportive care * Poor prognosis communicated to family. * No surgical intervention - The high probability of a clinically significant, sudden or life threatening deterioration of the [neurologic, CV] system(s) required my full and direct attention, intervention and personal management. The aggregate critical care time was [35] minutes. This time is in addition to time spent performing reported procedures but includes the following: [x] Data Review and interpretation [x] Patient assessment and monitoring of vital signs [x] Documentation [x] Medication orders and management History Interval history: patient seen and examined, remains unresponsive on the ventilator. multiple bouts of vomiting with any enteral feeding. NGT to suction overnight with over a liter recovered. None from fistula sites. Hospitalist Physical - Physical exam Narrative exam: GEN: Ill appearing, trach, staring into space, not tracking either NECK: SUPPLE, trach in place, ngt in place CVS:Irregular Irregular with tachycardia LUNGS/CHEST: NORMAL CHEST EXPANSION B, GOOD AIR ENTRY B, tachypena ABD: SOFT, no grimise on abdominal palpation, Ostomy bags at two side by side fistula site. GBS, NO REBOUND OR GUARDING, peg tube in place EXT/SKIN: NO SIGNIFICANT EDEMA BUT WITH UNSTAGEABLE SACRAL DECUB, wound vac inplace MSK: +spontaneous non purposeful movement NEURO: on a ventilator and unresponsive despite being off sedation PSY: Comatose, - Constitutional Vitals: Temp Pulse Resp BP Pulse Ox 98.8 F 152 H 22 116/67 98 02/15/17 16:00 02/15/17 17:01 02/15/17 17:01 02/15/17 16:48 02/15/17 17:01 General appearance: Present: no acute distress, well-nourished Results - Labs CBC & Chem 7: 02/14/17 08:08 02/15/17 04:15 Labs: Laboratory Last Values WBC 15.2 K/mm3 (4.5-11.0) H 02/14/17 08:08 RBC 2.97 M/mm3 (3.65-5.03) L 02/14/17 08:08 Hgb 8.1 gm/dl (10.1-14.3) L 02/14/17 08:08 Hct 26.3 % (30.3-42.9) L 02/14/17 08:08 MCV 89 fl (79-97) 02/14/17 08:08 MCH 28 pg (28-32) 02/14/17 08:08 MCHC 31 % (30-34) 02/14/17 08:08 RDW 19.3 % (13.2-15.2) H 02/14/17 08:08 Plt Count 311 K/mm3 (140-440) 02/14/17 08:08 Lymph % (Auto) 19.3 % (13.4-35.0) 02/05/17 09:59 [place] % (Auto) 9.2 % (0.0-7.3) H 02/05/17 09:59 Eos % (Auto) 1.8 % (0.0-4.3) 02/05/17 09:59 Baso % (Auto) 0.5 % (0.0-1.8) 02/05/17 09:59 Lymph # 2.0 K/mm3 (1.2-5.4) 02/05/17 09:59 [place] # 0.9 K/mm3 (0.0-0.8) H 02/05/17 09:59 Eos # 0.2 K/mm3 (0.0-0.4) 02/05/17 09:59 Baso # 0.0 K/mm3 (0.0-0.1) 02/05/17 09:59 Add Manual Diff Complete 12/19/16 05:02 Total Counted 100 12/19/16 05:02 Seg Neutrophils % 69.2 % (40.0-70.0) 02/05/17 09:59 Seg Neuts % (Manual) 64.0 % (40.0-70.0) 12/19/16 05:02 Band Neutrophils % 15.0 % 12/19/16 05:02 Lymphocytes % (Manual) 13.0 % (13.4-35.0) L 12/19/16 05:02 Reactive Lymphs % (Man) 0 % 12/19/16 05:02 Monocytes % (Manual) 7.0 % (0.0-7.3) 12/19/16 05:02 Eosinophils % (Manual) 0 % (0.0-4.3) 12/19/16 05:02 Basophils % (Manual) 1.0 % (0.0-1.8) 12/19/16 05:02 Metamyelocytes % 0 % 12/19/16 05:02 Myelocytes % 0 % 12/19/16 05:02 Promyelocytes % 0 % 12/19/16 05:02 Blast Cells % 0 % 12/19/16 05:02 Nucleated RBC % 1.0 % (0.0-0.9) H 12/19/16 05:02 Seg Neutrophils # 7.1 K/mm3 (1.8-7.7) 02/05/17 09:59 Seg Neutrophils # Man 12.9 K/mm3 (1.8-7.7) H 12/19/16 05:02 Band Neutrophils # 3.0 K/mm3 12/19/16 05:02 Lymphocytes # (Manual) 2.6 K/mm3 (1.2-5.4) 12/19/16 05:02 Abs React Lymphs (Man) 0.0 K/mm3 12/19/16 05:02 Monocytes # (Manual) 1.4 K/mm3 (0.0-0.8) H 12/19/16 05:02 Eosinophils # (Manual) 0.0 K/mm3 (0.0-0.4) 12/19/16 05:02 Basophils # (Manual) 0.2 K/mm3 (0.0-0.1) H 12/19/16 05:02 Metamyelocytes # 0.0 K/mm3 12/19/16 05:02 Myelocytes # 0.0 K/mm3 12/19/16 05:02 Promyelocytes # 0.0 K/mm3 12/19/16 05:02 Blast Cells # 0.0 K/mm3 12/19/16 05:02 Pathologist Review 09/13/16 04:00 WBC Morphology Not Reportable 12/19/16 05:02 Hypersegmented Neuts Not Reportable 12/19/16 05:02 Hyposegmented Neuts Not Reportable 12/19/16 05:02 Hypogranular Neuts Not Reportable 12/19/16 05:02 Smudge Cells Not Reportable 12/19/16 05:02 Toxic Granulation Not Reportable 12/19/16 05:02 Toxic Vacuolation Not Reportable 12/19/16 05:02 Dohle Bodies Not Reportable 12/19/16 05:02 Pelger-Huet Anomaly Not Reportable 12/19/16 05:02 Jasmina Rods Not Reportable 12/19/16 05:02 Platelet Estimate Consistent w auto 12/19/16 05:02 Clumped Platelets Not Reportable 12/19/16 05:02 Plt Clumps, EDTA Not Reportable 12/19/16 05:02 Large Platelets Not Reportable 12/19/16 05:02 Giant Platelets Not Reportable 12/19/16 05:02 Platelet Satelliting Not Reportable 12/19/16 05:02 Plt Morphology Comment Not Reportable 12/19/16 05:02 RBC Morphology Not Reportable 12/19/16 05:02 Dimorphic RBCs Not Reportable 12/19/16 05:02 Polychromasia Not Reportable 12/19/16 05:02 Hypochromasia Not Reportable 12/19/16 05:02 Poikilocytosis Not Reportable 12/19/16 05:02 Anisocytosis Not Reportable 12/19/16 05:02 Microcytosis Not Reportable 12/19/16 05:02 Macrocytosis Not Reportable 12/19/16 05:02 Spherocytes Not Reportable 12/19/16 05:02 Pappenheimer Bodies Not Reportable 12/19/16 05:02 Sickle Cells Not Reportable 12/19/16 05:02 Target Cells Few 12/19/16 05:02 Tear Drop Cells Not Reportable 12/19/16 05:02 Ovalocytes Not Reportable 12/19/16 05:02 Stomatocytes Rare 12/03/16 04:00 Helmet Cells Not Reportable 12/19/16 05:02 Monet-Eastman Bodies Not Reportable 12/19/16 05:02 [place] Rings Not Reportable 12/19/16 05:02 Baring Cells Not Reportable 12/19/16 05:02 Bite Cells Not Reportable 12/19/16 05:02 Crenated Cell Not Reportable 12/19/16 05:02 Elliptocytes Not Reportable 12/19/16 05:02 Acanthocytes (Spur) Not Reportable 12/19/16 05:02 Rouleaux Not Reportable 12/19/16 05:02 Hemoglobin C Crystals Not Reportable 12/19/16 05:02 Schistocytes Not Reportable 12/19/16 05:02 Malaria parasites Not Reportable 12/19/16 05:02 ESR > 140.0 mm/Hr (0-20) 09/08/16 11:48 Jun Bodies Not Reportable 12/19/16 05:02 Hem Pathologist Commnt No 12/19/16 05:02 PT 15.4 Sec. (12.2-14.9) H 01/13/17 15:50 INR 1.16 (0.87-1.13) H 01/13/17 15:50 APTT 33.0 Sec. (24.2-36.6) 10/09/16 03:45 Thrombin Time 16.8 Sec. (15.1-19.6) 09/03/16 00:10 Fibrinogen 750 mg/dl (211-480) H 09/08/16 11:48 Lupus Anticoagulant see below 09/12/16 09:59 LA PTT Baseline See scanned report 09/12/16 09:59 dRVVT Confirm Interp Positive (Negative) H 09/12/16 09:59 dRVVT Screen 50:50 See scanned report 09/12/16 09:59 dRVVT Mix Interpret See scanned report 09/12/16 09:59 Protein C Antigen 122 % (70-140) 09/08/16 15:35 Free Protein S 97 % normal (50-147) 09/08/16 15:35 Total Protein S 109 % (70-140) 09/08/16 15:35 Antithrombin III Ag 100 % (80-120) 09/08/16 15:35 Heparin Anti-Xa, Unfract Negative (Negative) 09/29/16 13:35 Factor V Activity 182 % (65-150) H 09/08/16 15:35 POC ABG pH 7.436 (7.35-7.45) 01/20/17 12: ABG pH 7.450 pH Units (7.350-7.450) 12/05/16 Unknown POC ABG pCO2 35.3 (35-45) 01/20/17 12: ABG pCO2 29.6 mm Hg 12/05/16 Unknown POC ABG pO2 70 (80-105) L 01/20/17 12: ABG pO2 75.2 mm Hg (80.0-90.0) L 12/05/16 Unknown POC ABG HCO3 23.8 01/20/17 12: ABG HCO3 20.1 mmol/L (20.0-26.0) 12/05/16 Unknown POC ABG Total CO2 25 01/20/17 12: POC ABG O2 Sat 94 01/20/17 12: ABG O2 Saturation 96.8 % (95.0-99.0) 12/05/16 Unknown ABG O2 Content 9.9 (0.0-44) 12/05/16 Unknown POC ABG Base Excess 0 01/20/17 12: ABG Base Excess -3.4 mmol/L (-2.0-3.0) L 12/05/16 Unknown ABG Hemoglobin 7.4 gm/dl (12.0-16.0) L 12/05/16 Unknown ABG Carboxyhemoglobin 1.8 % (0.0-5.0) 12/05/16 Unknown ABG Methemoglobin 0.6 % (0.0-1.5) 12/05/16 Unknown Oxyhemoglobin 94.5 % (95.0-99.0) L 12/05/16 Unknown FiO2 30 % 01/20/17 12: Sodium 140 mmol/L (137-145) 02/15/17 04:15 Potassium 4.5 mmol/L (3.6-5.0) 02/15/17 04:15 Chloride 102.7 mmol/L (98-107) 02/15/17 04:15 Carbon Dioxide 21 mmol/L (22-30) L 02/15/17 04:15 Anion Gap 21 mmol/L 02/15/17 04:15 BUN 113 mg/dL (7-17) H 02/15/17 04:15 Creatinine 2.8 mg/dL (0.7-1.2) H 02/15/17 04:15 Estimated GFR 22 ml/min 02/15/17 04:15 BUN/Creatinine Ratio 40 % 02/15/17 04:15 Glucose 100 mg/dL (65-100) 02/15/17 04:15 POC Glucose 115 (70-105) H 02/15/17 06:06 Osmolality 351 Mosm/kg 09/16/16 11:47 Lactic Acid 2.30 mmol/L (0.7-2.0) H* 01/09/17 08:22 Calcium 10.7 mg/dL (8.4-10.2) H 02/15/17 04:15 Phosphorus 3.50 mg/dL (2.5-4.5) D 02/15/17 04:15 Magnesium 2.00 mg/dL (1.7-2.3) 02/15/17 04:15 Total Bilirubin 0.40 mg/dL (0.1-1.2) 02/06/17 04:45 Direct Bilirubin 0.2 mg/dL (0-0.2) 01/28/17 04:00 Indirect Bilirubin 0.3 mg/dL 01/28/17 04:00 AST 29 units/L (5-40) 02/06/17 04:45 ALT 26 units/L (7-56) 02/06/17 04:45 Alkaline Phosphatase 199 units/L (35-129) H 02/06/17 04:45 Ammonia 27.0 umol/L (25-60) 09/07/16 08:37 Lactate Dehydrogenase 170 units/L (91-180) 01/13/17 15:50 Total Creatine Kinase 121 units/L (30-135) 09/29/16 20:12 CK-MB (CK-2) < 1.0 ng/mL (0.0-4.0) 09/29/16 20:12 CK-MB (CK-2) Rel Index 0.8 (0-4) 09/29/16 20:12 Troponin T 0.204 ng/mL (0.00-0.029) H* 09/29/16 20:12 C-Reactive Protein 8.10 mg/dL (0.00-1.30) H 01/31/17 11:12 Total Protein 6.7 g/dL (6.3-8.2) 02/06/17 04:45 Albumin 1.4 g/dL (3.9-5) L 02/06/17 04:45 Albumin/Globulin Ratio 0.3 % 02/06/17 04:45 Prealbumin 0.110 g/L (0.200-0.400) L 12/29/16 05:15 Triglycerides 55 mg/dL (2-149) 02/06/17 04:45 Cholesterol 31 mg/dL (50-199) L 09/29/16 20:12 LDL Cholesterol Direct 4 mg/dL (50-130) L 09/29/16 20:12 HDL Cholesterol 3 mg/dL (40-59) L 09/29/16 20:12 Cholesterol/HDL Ratio 10.33 % 09/29/16 20:12 Angiotensin Convert Enz See scanned report 09/08/16 11:48 Renin 0.99 ng/mL/h (0.25-5.82) 10/07/16 10:56 Aldosterone <1 ng/dL () 10/07/16 10:56 Aldosterone/Renin Dir see below 10/07/16 10:56 Serotonin Release Assay See scanned report 09/29/16 13:35 TSH 1.010 mlU/mL (0.270-4.200) 09/07/16 08:37 HCG, Qual Negative (Negative) 09/03/16 00:10 PTH Intact 6.76 pg/mL (15-65) L 01/31/17 17:50 Total Cortisol 18.2 mcg/dL () 02/02/17 20:09 Urine Color Yellow (Yellow) 11/05/16 13:09 Urine Turbidity Clear (Clear) 11/05/16 13:09 Urine pH 9.0 (5.0-7.0) H 11/05/16 13:09 Ur Specific [place] 1.011 (1.003-1.030) 11/05/16 13:09 Urine Protein 100 mg/dl mg/dL (Negative) 11/05/16 13:09 Urine Glucose (UA) Neg mg/dL (Negative) 11/05/16 13:09 Urine Ketones Neg mg/dL (Negative) 11/05/16 13:09 Urine Blood Neg (Negative) 11/05/16 13:09 Urine Nitrite Neg (Negative) 11/05/16 13:09 Urine Bilirubin Neg (Negative) 11/05/16 13:09 Urine Urobilinogen < 2.0 mg/dL (<2.0) 11/05/16 13:09 Ur Leukocyte Esterase Neg (Negative) 11/05/16 13:09 Urine WBC (Auto) 4.0 /HPF (0.0-6.0) 11/05/16 13:09 Urine RBC (Auto) 1.0 /HPF (0.0-6.0) 11/05/16 13:09 U Epithel Cells (Auto) 1.0 /HPF (0-13.0) 10/07/16 18:30 Urine Bacteria (Auto) 4+ /HPF (Negative) 11/05/16 13:09 Urine WBC Clumps 2+ /HPF 09/07/16 02:47 Hyaline Casts 4 /LPF 09/07/16 02:47 Urine Mucus Few /HPF 10/07/16 18:30 Urine Yeast (Budding) 3+ /HPF 10/07/16 18:30 Urine Eosinophils None seen (None Seen) 09/07/16 16:00 Urine Total Volume 950 11/12/16 10:18 Urine Creatinine 19.7 mg/dL (0.1-20.0) 11/12/16 10:18 Height (in) 65.0 inches 11/12/16 10:18 Weight (lb) 181.0 lbs 11/12/16 10:18 Creatinine Clearance 5 11/12/16 10:18 Urine Sodium 36 mEq/L 09/16/16 19:19 Urine Total Protein 16 mg/dL (5-11.8) H 09/16/16 19:19 Fluid Type Pleural 01/13/17 12:10 Fluid Color Yellow 01/13/17 12:10 Fluid Appearance Hazy 01/13/17 12:10 Fluid WBC 182 /mm3 01/13/17 12:10 Fluid RBC 41 /mm3 01/13/17 12:10 Fluid Seg Neutrophils 85.0 % 01/13/17 12:10 Fluid Lymphocytes 8.0 % 01/13/17 12:10 Fluid Reactive Lymphs 0 % 01/13/17 12:10 Fluid Monocytes 6.0 % 01/13/17 12:10 Fluid Eosinophils 1.0 % 01/13/17 12:10 Fluid Basophils 0 % 01/13/17 12:10 Fluid Total Protein 3.0 (15.0-45.0) L 01/13/17 12:10 Fluid LDH 1322 01/13/17 12:10 Fluid Comment Diff performed 01/13/17 12:10 Vancomycin Trough 2.3 ug/mL (5.0-20.0) L 09/21/16 13:00 Random Vancomycin 16.5 ug/mL (0-40.0) 11/28/16 09:45 Urine Opiates Screen Presumptive negative 09/03/16 15:11 Urine Methadone Screen Presumptive positive 09/03/16 15:11 Ur Barbiturates Screen Presumptive positive 09/03/16 15:11 Ur Phencyclidine Scrn Presumptive negative 09/03/16 15:11 Ur Amphetamines Screen Presumptive negative 09/03/16 15:11 U Benzodiazepines Scrn Presumptive negative 09/03/16 15:11 Urine Cocaine Screen Presumptive negative 09/03/16 15:11 U Marijuana (THC) Screen Presumptive positive 09/03/16 15:11 Drugs of Abuse Note Disclamer 09/03/16 15:11 Rheumatoid Factor 24 IU/ml (0-13) H 09/08/16 11:48 SAHIL Screen Negative (Negative) 09/07/16 09:20 Proteinase 3 (PR3) Ab <1.0 AI (<1.0) 09/07/16 09:20 Myeloperoxidase Ab <1.0 AI (<1.0) 09/07/16 09:20 Sjogren's Antibody <1.0 AI (<1.0) 09/08/16 15:35 Scl-70 Scleroderma Ab <1.0 AI (<1.0) 09/08/16 15:35 Centromere B Antibody <1.0 AI (<1.0) 09/08/16 12:02 Heparin-induced Plt Ab Negative (Negative) 09/29/16 13:35 UF Heparin High Dose 11 % Release 09/29/16 13:35 SUDHIR UFH Low Dose 0.1 6 % Release 09/29/16 13:35 SUDHIR UFH Low Dose 0.5 8 % Release 09/29/16 13:35 Cardiolipid IgG Ab <14 GPL (<=14) 09/12/16 09:59 Cardiolipid IgA Ab <11 APL (<=11) 09/12/16 09:59 Cardiolipid IgM Ab <12 MPL (<=12) 09/12/16 09:59 Complement C3 148 mg/dL (90-180) 09/07/16 09:20 Complement C4 58 mg/dL (16-47) H 09/07/16 09:20 RPR Nonreactive (Nonreactive) 09/08/16 11:48 Hepatitis A IgM Ab Non-reactive (NonReactive) 09/24/16 14:40 Hep Bs Antigen Non-reactive (Negative) 09/24/16 14:40 Hep B Core IgM Ab Non-reactive (NonReactive) 09/24/16 14:40 Hepatitis C Antibody Non-reactive (NonReactive) 09/24/16 14:40 HIV 1&2 Antibody Rapid Non react (Non React) 09/08/16 11:48 HIV P24 Antigen Non react (Non React) 09/08/16 11:48 Miscellaneous Test Flexitest 1 H 01/09/17 18:45 Blood Type A POSITIVE 02/12/17 10:25 Antibody Screen Negative 02/12/17 10:25 DELORIS Antibody Screen Negative 11/24/16 11:20 Crossmatch See Detail 02/12/17 10:25
[2017-02-15] MEDS: CORDARONE 900 MG in D5W 482 ML IV SCH (18:55)
[2017-02-15] MEDS ORDERED: TPN ADULT IV SCH (20:00)
[2017-02-15] MEDS: TAZICEF IV SCH (20:00)
[2017-02-15] MEDS: NACL 0.9% IV SCH (20:00)
[2017-02-15] MEDS ORDERED: INTRALIPID 20% 250 ML IV SCH (20:00)
[2017-02-16] MEDS: HumuLIN R SUB-Q SCH ×3 (02:48→12:15)
[2017-02-16] MEDS: REGLAN IV SCH ×3 (06:44→22:46)
[2017-02-16] MEDS: FLAGYL 500 MG/100 ML 500 MG/100 ML BAG IV SCH ×3 (06:45→22:48)
[2017-02-16 07:33] LABS: Calcium 9.5 mg/dL (8.4-10.2)
[2017-02-16] MEDS: DUONEB *Not for PRN Use IH SCH ×3 (09:13→20:10)
--- NOTE | 2017-02-16 09:20 | Progress Note ---
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 UF as tolerated. Patient's serum creatinine is noted to be low - due to wasting of muscle mass. Needs to be maintained on dialysis at this time. * Await hypercalcemia work up - likely due to immobilization * Adjust Ca bath with dialysis * Transfuse pRBC per primary team. Epogen TIW prn * Vent management per pulm/CCM * Pressors prn for MAP>65 * Dose medications for renal function Subjective Date of service: 02/16/17 Principal diagnosis: Acute resp failure on MVS; S/P Acute CVA; Acute Encephalopathy; JUANITA Interval history: No acute events overnight Objective - Vital Signs Vital signs: Vital Signs - 12hr 02/15/17 02/15/17 02/15/17 22:00 23:00 23:27 Temperature 100.7 F H Pulse Rate 111 H 117 H Pulse Rate [ Apical] Pulse Rate [ Throughout] Respiratory 23 18 Rate Respiratory Rate [ Throughout] Blood Pressure 144/85 124/76 O2 Sat by Pulse Oximetry 02/15/17 02/16/17 02/16/17 23:40 00:00 01:00 Temperature Pulse Rate 116 H 123 H 120 H Pulse Rate [ 110 H Apical] Pulse Rate [ Throughout] Respiratory 21 16 Rate Respiratory Rate [ Throughout] Blood Pressure 124/76 134/86 127/89 O2 Sat by Pulse 96 99 93 Oximetry 02/16/17 02/16/17 02/16/17 02:00 02:52 03:00 Temperature Pulse Rate 116 H 113 H Pulse Rate [ 108 H Apical] Pulse Rate [ Throughout] Respiratory 22 16 20 Rate Respiratory Rate [ Throughout] Blood Pressure 116/62 113/55 O2 Sat by Pulse 100 96 Oximetry 02/16/17 02/16/17 02/16/17 03:42 04:00 04:13 Temperature 98.4 F Pulse Rate 114 H 112 H Pulse Rate [ Apical] Pulse Rate [ Throughout] Respiratory 29 H Rate Respiratory Rate [ Throughout] Blood Pressure 132/69 132/69 O2 Sat by Pulse 87 94 Oximetry 02/16/17 02/16/17 02/16/17 05:00 06:00 07:00 Temperature Pulse Rate 111 H 107 H 106 H Pulse Rate [ Apical] Pulse Rate [ Throughout] Respiratory 22 23 20 Rate Respiratory Rate [ Throughout] Blood Pressure 132/69 103/49 102/54 O2 Sat by Pulse 96 96 Oximetry 02/16/17 02/16/17 02/16/17 07:35 08:00 09:09 Temperature 98.7 F Pulse Rate 106 H 105 H Pulse Rate [ 114 H Apical] Pulse Rate [ Throughout] Respiratory 24 25 H Rate Respiratory Rate [ Throughout] Blood Pressure 112/49 113/57 O2 Sat by Pulse 95 88 95 Oximetry 02/16/17 09:13 Temperature Pulse Rate Pulse Rate [ Apical] Pulse Rate [ 105 H Throughout] Respiratory Rate Respiratory 20 Rate [ Throughout] Blood Pressure O2 Sat by Pulse Oximetry - General Appearance General appearance: chronically ill, intubated EENT: ATNC Respiratory: Present: Other (coarse breath sounds) Cardiology: regular, S1S2 Gastrointestinal: no distended Neurologic: other (unresponsive to tactile/verbal stimuli) Musculoskeletal: other (trace edema) - Lab 02/14/17 08:08 02/16/17 06:00 Most recent lab results ABG pH 7.450 pH Units (7.350-7.450) 12/05/16 Unknown ABG pCO2 29.6 mm Hg 12/05/16 Unknown ABG pO2 75.2 mm Hg (80.0-90.0) L 12/05/16 Unknown ABG HCO3 20.1 mmol/L (20.0-26.0) 12/05/16 Unknown ABG O2 Saturation 96.8 % (95.0-99.0) 12/05/16 Unknown Calcium 9.5 mg/dL (8.4-10.2) 02/16/17 06:00 Phosphorus 2.10 mg/dL (2.5-4.5) L D 02/16/17 06:00 Magnesium 1.80 mg/dL (1.7-2.3) 02/16/17 06:00 Urine Creatinine 19.7 mg/dL (0.1-20.0) 11/12/16 10:18 Urine Sodium 36 mEq/L 09/16/16 19:19 Urine Total Protein 16 mg/dL (5-11.8) H 09/16/16 19:19
[2017-02-16] MEDS: CORDARONE 900 MG in D5W 482 ML IV SCH (09:25)
--- NOTE | 2017-02-16 10:05 | Progress Note ---
Assessment and Plan Patient is 46-year-old woman with a history of hypertension, diabetes mellitus, asthma, hyperlipidemia, chronic kidney disease and anxiety, who was brought in by family because she couldn't get her words out, her face was also twisted, she was admitted for acute CVA and accelerated hypertension, she had a hx of poor adherence with her medications, and uncontrolled hypertension. Patient's SBP on admission was noted be greater than 260. TPA was started but this it was discontinued after 5 minutes because her blood pressure became uncontrolled. The TPA was not initiated again because the patient was outside the TPA window. Patient has had a prolonged hospital stay complicated with recurrent severe sepsis. Patient with most recent event also status post cardiac arrest on 11/21/16 , with CPR and ROSC. Acute on chronic Hypoxemic Respiratory Failure Sepsis -recurrent s/p tracheostomy Hypertension Atrial Fibrillation with RVR Acute encephalopathy s/p CVA Oropharyngeal dysphagia Enterococcal bacteremia Sacral Decubitus Ulcer- unstageable s/p debridement Anemia Obesity JUANITA now on hemodialysis Enteric Fistula - VAP bundle addressed - continue NGT to LIS - continue wound care/wound vac per WCT - Vasopressor if MAP falls < 65mmHg - keep on with daily PSV trials and / or T-piece as tolerated - continue TPN administration (continue TPN; NPO except for meds) - continue airway clearance and secretion management - continue to wean FiO2 for sats > 94% - continue to monitor hemodynamics closely - continue HD/UF per nephrology - continue to follow electrolytes and correct as necessary - continue GI & VTE prophylaxis -transfuse 1 unit PRBC as needed to keep HgH>7g/dL .....she remains critically ill on life sustaining interventions including MVS and at risk for further deterioration including ...penitentiary prognosis remains poor - Patient Problems (1) Acute respiratory failure with hypoxia Current Visit: Yes Status: Acute (2) Acute blood loss anemia Current Visit: Yes Status: Resolved (3) Acute CVA (cerebrovascular accident) Current Visit: Yes Status: Acute (4) Chronic renal insufficiency Current Visit: Yes Status: Acute (5) Uncontrolled hypertension Current Visit: Yes Status: Acute (6) Leukocytosis (leucocytosis) Current Visit: Yes Status: Acute Qualifiers: Leukocytosis type: leukemoid reaction Qualified Code(s): D72.823 - Leukemoid reaction (7) Dislodged gastrostomy tube Current Visit: Yes Status: Acute (8) Fungemia Current Visit: Yes Status: Resolved (9) Cardiopulmonary arrest with successful resuscitation Current Visit: Yes Status: Acute Subjective Date of service: 02/16/17 Principal diagnosis: Acute resp failure on MVS; S/P Acute CVA; Acute Encephalopathy; JUANITA Interval history: Patient is seen today for: Acute resp failure on MVS; S/P Acute CVA; Acute Encephalopathy; JUANITA Seen and examined at bedside; 24hour events reviewed; nursing and respiratory care staff consulted; no adverse overnight events reported to me; she remains critically ill Patient was made DNR on 02/12/2017 by family, see hospitalist documentation. Draining feces from the abdominal pouch Vitals, labs, medications, chart reviewed. Discussed with RT Objective - Exam Narrative Exam: GEN: Ill appearing, tracheostomy to mechanical ventilatory support, staring into space,non purposeful movement NECK: Supple, tracheostomy in place, NGT in place and to suction. CVS:Irregular Irregular , S1,S2, no murmurs, no gallops. LUNGS/CHEST: Good AE bilaterally, Rhonchi bilaterally, ABD: SOFT, no grimace on abdominal palpation, Ostomy bags at fistula sites GBS, No rebound, no peritoneal signs, peg tube in place EXT/SKIN:Wound vac in place, unstageable decubitus ulcer MSK: +spontaneous non purposeful movement NEURO: on a ventilator and unresponsive Vital Signs - 12hr 02/15/17 02/15/17 02/15/17 23:00 23:27 23:40 Temperature 100.7 F H Pulse Rate 117 H 116 H Pulse Rate [ Apical] Pulse Rate [ Throughout] Respiratory 18 Rate Respiratory Rate [ Throughout] Blood Pressure 124/76 124/76 O2 Sat by Pulse 96 Oximetry 02/16/17 02/16/17 02/16/17 00:00 01:00 02:00 Temperature Pulse Rate 123 H 120 H 116 H Pulse Rate [ 110 H Apical] Pulse Rate [ Throughout] Respiratory 21 16 22 Rate Respiratory Rate [ Throughout] Blood Pressure 134/86 127/89 116/62 O2 Sat by Pulse 99 93 Oximetry 02/16/17 02/16/17 02/16/17 02:52 03:00 03:42 Temperature 98.4 F Pulse Rate 113 H Pulse Rate [ 108 H Apical] Pulse Rate [ Throughout] Respiratory 16 20 Rate Respiratory Rate [ Throughout] Blood Pressure 113/55 O2 Sat by Pulse 100 96 Oximetry 02/16/17 02/16/17 02/16/17 04:00 04:13 05:00 Temperature Pulse Rate 114 H 112 H 111 H Pulse Rate [ Apical] Pulse Rate [ Throughout] Respiratory 29 H 22 Rate Respiratory Rate [ Throughout] Blood Pressure 132/69 132/69 132/69 O2 Sat by Pulse 87 94 Oximetry 02/16/17 02/16/17 02/16/17 06:00 07:00 07:35 Temperature Pulse Rate 107 H 106 H Pulse Rate [ 114 H Apical] Pulse Rate [ Throughout] Respiratory 23 20 24 Rate Respiratory Rate [ Throughout] Blood Pressure 103/49 102/54 O2 Sat by Pulse 96 96 95 Oximetry 02/16/17 02/16/17 02/16/17 08:00 09:00 09:09 Temperature 98.7 F Pulse Rate 106 H 102 H 105 H Pulse Rate [ Apical] Pulse Rate [ Throughout] Respiratory 25 H 17 Rate Respiratory Rate [ Throughout] Blood Pressure 112/49 113/57 113/57 O2 Sat by Pulse 88 95 95 Oximetry 02/16/17 02/16/17 02/16/17 09:13 09:18 09:21 Temperature Pulse Rate 111 H Pulse Rate [ Apical] Pulse Rate [ 105 H 111 H Throughout] Respiratory 26 H Rate Respiratory 20 30 H Rate [ Throughout] Blood Pressure 113/57 O2 Sat by Pulse 100 Oximetry Constitutional: appears uncomfortable, other (not tracking) Eyes: non-icteric, other (tracheostomy tube in midline of neck) ENT: oropharynx moist, oropharyngeal exudate pre Neck: supple, no lymphadenopathy, no JVD, other (no thyromegaly) Effort: mildly labored Ascultation: Bilateral: clear, diminished breath sounds (bases R>L), rales, rhonchi (and referred upper airway sounds) Percussion: Right: dull (base), Bilateral: not dull Cardiovascular: regular rate and rhythm, other (no rubs / murmurs) Gastrointestinal: hypoactive bowel sounds, soft, non-tender, non-distended, other (RLQ & LUQ stomas with colostomy bags) Integumentary: decubitus ulcer (sacral; stage 4 s/p surgical debridement), other (no rash; no cellulitis; poor turgor) Extremities: no cyanosis, pulses normal, no ischemia or petechiae, edema (1+ bilaterally) Neurologic: pupils equal and round, unable to assess, other (encephalopathic) Psychiatric: other (unable to assess) CBC and BMP: 02/24/17 10:05 02/25/17 05:00 ABG, PT/INR, D-dimer: ABG POC ABG pH 7.436 (7.35-7.45) 01/20/17 12: ABG pH 7.450 pH Units (7.350-7.450) 12/05/16 Unknown POC ABG pCO2 35.3 (35-45) 01/20/17 12:17 ABG pCO2 29.6 mm Hg 12/05/16 Unknown POC ABG pO2 70 (80-105) L 01/20/17 12: ABG pO2 75.2 mm Hg (80.0-90.0) L 12/05/16 Unknown POC ABG HCO3 23.8 01/20/17 12:17 POC ABG Total CO2 25 01/20/17 12:17 POC ABG O2 Sat 94 01/20/17 12: ABG O2 Saturation 96.8 % (95.0-99.0) 12/05/16 Unknown PT/INR, D-dimer PT 15.4 Sec. (12.2-14.9) H 01/13/17 15:50 INR 1.16 (0.87-1.13) H 01/13/17 15:50 Abnormal lab findings: Abnormal Labs 09/03/16 09/03/16 09/03/16 00:03 00:10 00:10 WBC 13.9 H RBC 5.95 H Hgb Hct 44.0 H MCV 74 L MCH 22 L MCHC RDW 17.5 H Plt Count Lymph % (Auto) [place] % (Auto) Lymph # [place] # Baso # Seg Neutrophils % Seg Neuts % (Manual) Lymphocytes % (Manual) 54.0 H Monocytes % (Manual) Eosinophils % (Manual) Basophils % (Manual) Nucleated RBC % Seg Neutrophils # Seg Neutrophils # Man Lymphocytes # (Manual) 7.5 H Monocytes # (Manual) Eosinophils # (Manual) Basophils # (Manual) PT INR Fibrinogen dRVVT Confirm Interp Factor V Activity POC ABG pH POC ABG pCO2 POC ABG pO2 ABG pO2 ABG HCO3 ABG Base Excess ABG Hemoglobin Oxyhemoglobin Sodium Potassium 2.8 L* Chloride Carbon Dioxide 21 L BUN Creatinine 1.7 H Glucose 159 H POC Glucose 177 H Lactic Acid Calcium Phosphorus Magnesium Direct Bilirubin AST ALT Alkaline Phosphatase Lactate Dehydrogenase Troponin T C-Reactive Protein Total Protein Albumin Prealbumin Triglycerides Cholesterol LDL Cholesterol Direct HDL Cholesterol PTH Intact Urine pH Urine WBC (Auto) Urine Creatinine Urine Total Protein Fluid Total Protein Vancomycin Trough Rheumatoid Factor Complement C4 Miscellaneous Test Crossmatch 09/03/16 09/03/16 09/03/16 12:12 15:07 16:20 WBC RBC Hgb Hct MCV MCH MCHC RDW Plt Count Lymph % (Auto) [place] % (Auto) Lymph # [place] # Baso # Seg Neutrophils % Seg Neuts % (Manual) Lymphocytes % (Manual) Monocytes % (Manual) Eosinophils % (Manual) Basophils % (Manual) Nucleated RBC % Seg Neutrophils # Seg Neutrophils # Man Lymphocytes # (Manual) Monocytes # (Manual) Eosinophils # (Manual) Basophils # (Manual) PT INR Fibrinogen dRVVT Confirm Interp Factor V Activity POC ABG pH 7.452 H POC ABG pCO2 POC ABG pO2 ABG pO2 ABG HCO3 ABG Base Excess ABG Hemoglobin Oxyhemoglobin Sodium Potassium Chloride Carbon Dioxide BUN Creatinine Glucose POC Glucose 178 H Lactic Acid Calcium Phosphorus 2.20 L Magnesium 1.60 L Direct Bilirubin AST ALT Alkaline Phosphatase Lactate Dehydrogenase Troponin T C-Reactive Protein Total Protein Albumin Prealbumin Triglycerides Cholesterol LDL Cholesterol Direct HDL Cholesterol PTH Intact Urine pH Urine WBC (Auto) Urine Creatinine Urine Total Protein Fluid Total Protein Vancomycin Trough Rheumatoid Factor Complement C4 Miscellaneous Test Crossmatch 09/03/16 09/03/16 09/03/16 17:57 17:58 23:50 WBC RBC Hgb Hct MCV MCH MCHC RDW Plt Count Lymph % (Auto) [place] % (Auto) Lymph # [place] # Baso # Seg Neutrophils % Seg Neuts % (Manual) Lymphocytes % (Manual) Monocytes % (Manual) Eosinophils % (Manual) Basophils % (Manual) Nucleated RBC % Seg Neutrophils # Seg Neutrophils # Man Lymphocytes # (Manual) Monocytes # (Manual) Eosinophils # (Manual) Basophils # (Manual) PT INR Fibrinogen dRVVT Confirm Interp Factor V Activity POC ABG pH POC ABG pCO2 POC ABG pO2 ABG pO2 ABG HCO3 ABG Base Excess ABG Hemoglobin Oxyhemoglobin Sodium Potassium Chloride Carbon Dioxide BUN Creatinine Glucose POC Glucose 162 H 145 H Lactic Acid Calcium Phosphorus 2.30 L Magnesium Direct Bilirubin AST ALT Alkaline Phosphatase Lactate Dehydrogenase Troponin T C-Reactive Protein Total Protein Albumin Prealbumin Triglycerides Cholesterol LDL Cholesterol Direct HDL Cholesterol PTH Intact Urine pH Urine WBC (Auto) Urine Creatinine Urine Total Protein Fluid Total Protein Vancomycin Trough Rheumatoid Factor Complement C4 Miscellaneous Test Crossmatch 09/04/16 09/04/16 09/04/16 03:31 03:31 05:42 WBC RBC Hgb 9.7 L D Hct MCV 72 L MCH 23 L MCHC RDW 17.5 H Plt Count Lymph % (Auto) 11.1 L [place] % (Auto) Lymph # [place] # Baso # Seg Neutrophils % 84.3 H Seg Neuts % (Manual) Lymphocytes % (Manual) Monocytes % (Manual) Eosinophils % (Manual) Basophils % (Manual) Nucleated RBC % Seg Neutrophils # 8.9 H Seg Neutrophils # Man Lymphocytes # (Manual) Monocytes # (Manual) Eosinophils # (Manual) Basophils # (Manual) PT INR Fibrinogen dRVVT Confirm Interp Factor V Activity POC ABG pH POC ABG pCO2 POC ABG pO2 ABG pO2 ABG HCO3 ABG Base Excess ABG Hemoglobin Oxyhemoglobin Sodium 135 L Potassium 2.9 L* Chloride 97.2 L Carbon Dioxide 19 L BUN Creatinine 1.7 H Glucose 170 H POC Glucose 152 H Lactic Acid Calcium Phosphorus Magnesium Direct Bilirubin AST ALT Alkaline Phosphatase Lactate Dehydrogenase Troponin T C-Reactive Protein Total Protein Albumin Prealbumin Triglycerides 160 H Cholesterol LDL Cholesterol Direct HDL Cholesterol 31 L PTH Intact Urine pH Urine WBC (Auto) Urine Creatinine Urine Total Protein Fluid Total Protein Vancomycin Trough Rheumatoid Factor Complement C4 Miscellaneous Test Crossmatch 09/04/16 09/04/16 09/04/16 11:34 17:46 23:29 WBC RBC Hgb Hct MCV MCH MCHC RDW Plt Count Lymph % (Auto) [place] % (Auto) Lymph # [place] # Baso # Seg Neutrophils % Seg Neuts % (Manual) Lymphocytes % (Manual) Monocytes % (Manual) Eosinophils % (Manual) Basophils % (Manual) Nucleated RBC % Seg Neutrophils # Seg Neutrophils # Man Lymphocytes # (Manual) Monocytes # (Manual) Eosinophils # (Manual) Basophils # (Manual) PT INR Fibrinogen dRVVT Confirm Interp Factor V Activity POC ABG pH POC ABG pCO2 POC ABG pO2 ABG pO2 ABG HCO3 ABG Base Excess ABG Hemoglobin Oxyhemoglobin Sodium Potassium Chloride Carbon Dioxide BUN Creatinine Glucose POC Glucose 165 H 210 H 139 H Lactic Acid Calcium Phosphorus Magnesium Direct Bilirubin AST ALT Alkaline Phosphatase Lactate Dehydrogenase Troponin T C-Reactive Protein Total Protein Albumin Prealbumin Triglycerides Cholesterol LDL Cholesterol Direct HDL Cholesterol PTH Intact Urine pH Urine WBC (Auto) Urine Creatinine Urine Total Protein Fluid Total Protein Vancomycin Trough Rheumatoid Factor Complement C4 Miscellaneous Test Crossmatch 09/05/16 09/05/16 09/05/16 04:05 04:05 05:38 WBC RBC Hgb Hct MCV 76 L D MCH 23 L MCHC RDW 17.8 H Plt Count Lymph % (Auto) [place] % (Auto) Lymph # [place] # Baso # Seg Neutrophils % Seg Neuts % (Manual) Lymphocytes % (Manual) Monocytes % (Manual) Eosinophils % (Manual) Basophils % (Manual) Nucleated RBC % Seg Neutrophils # Seg Neutrophils # Man Lymphocytes # (Manual) Monocytes # (Manual) Eosinophils # (Manual) Basophils # (Manual) PT INR Fibrinogen dRVVT Confirm Interp Factor V Activity POC ABG pH POC ABG pCO2 POC ABG pO2 ABG pO2 ABG HCO3 ABG Base Excess ABG Hemoglobin Oxyhemoglobin Sodium 134 L Potassium Chloride Carbon Dioxide 18 L BUN Creatinine 1.8 H Glucose 192 H POC Glucose 175 H Lactic Acid Calcium Phosphorus Magnesium Direct Bilirubin AST ALT Alkaline Phosphatase Lactate Dehydrogenase Troponin T C-Reactive Protein Total Protein Albumin Prealbumin Triglycerides Cholesterol LDL Cholesterol Direct HDL Cholesterol PTH Intact Urine pH Urine WBC (Auto) Urine Creatinine Urine Total Protein Fluid Total Protein Vancomycin Trough Rheumatoid Factor Complement C4 Miscellaneous Test Crossmatch 09/05/16 09/05/16 09/05/16 11:38 17:48 23:22 WBC RBC Hgb Hct MCV MCH MCHC RDW Plt Count Lymph % (Auto) [place] % (Auto) Lymph # [place] # Baso # Seg Neutrophils % Seg Neuts % (Manual) Lymphocytes % (Manual) Monocytes % (Manual) Eosinophils % (Manual) Basophils % (Manual) Nucleated RBC % Seg Neutrophils # Seg Neutrophils # Man Lymphocytes # (Manual) Monocytes # (Manual) Eosinophils # (Manual) Basophils # (Manual) PT INR Fibrinogen dRVVT Confirm Interp Factor V Activity POC ABG pH POC ABG pCO2 POC ABG pO2 ABG pO2 ABG HCO3 ABG Base Excess ABG Hemoglobin Oxyhemoglobin Sodium Potassium Chloride Carbon Dioxide BUN Creatinine Glucose POC Glucose 164 H 186 H 195 H Lactic Acid Calcium Phosphorus Magnesium Direct Bilirubin AST ALT Alkaline Phosphatase Lactate Dehydrogenase Troponin T C-Reactive Protein Total Protein Albumin Prealbumin Triglycerides Cholesterol LDL Cholesterol Direct HDL Cholesterol PTH Intact Urine pH Urine WBC (Auto) Urine Creatinine Urine Total Protein Fluid Total Protein Vancomycin Trough Rheumatoid Factor Complement C4 Miscellaneous Test Crossmatch 09/06/16 09/06/16 09/06/16 04:12 05:59 07:32 WBC RBC Hgb Hct MCV MCH MCHC RDW Plt Count Lymph % (Auto) [place] % (Auto) Lymph # [place] # Baso # Seg Neutrophils % Seg Neuts % (Manual) Lymphocytes % (Manual) Monocytes % (Manual) Eosinophils % (Manual) Basophils % (Manual) Nucleated RBC % Seg Neutrophils # Seg Neutrophils # Man Lymphocytes # (Manual) Monocytes # (Manual) Eosinophils # (Manual) Basophils # (Manual) PT INR Fibrinogen dRVVT Confirm Interp Factor V Activity POC ABG pH 7.514 H POC ABG pCO2 29.1 L POC ABG pO2 72 L ABG pO2 ABG HCO3 ABG Base Excess ABG Hemoglobin Oxyhemoglobin Sodium 133 L Potassium 3.4 L Chloride 94.9 L Carbon Dioxide 19 L BUN 30 H Creatinine 2.1 H Glucose 139 H POC Glucose 146 H Lactic Acid Calcium Phosphorus Magnesium Direct Bilirubin AST ALT Alkaline Phosphatase Lactate Dehydrogenase Troponin T C-Reactive Protein Total Protein Albumin Prealbumin Triglycerides Cholesterol LDL Cholesterol Direct HDL Cholesterol PTH Intact Urine pH Urine WBC (Auto) Urine Creatinine Urine Total Protein Fluid Total Protein Vancomycin Trough Rheumatoid Factor Complement C4 Miscellaneous Test Crossmatch 09/06/16 09/06/16 09/06/16 11:57 17:58 19:02 WBC RBC Hgb Hct MCV MCH MCHC RDW Plt Count Lymph % (Auto) [place] % (Auto) Lymph # [place] # Baso # Seg Neutrophils % Seg Neuts % (Manual) Lymphocytes % (Manual) Monocytes % (Manual) Eosinophils % (Manual) Basophils % (Manual) Nucleated RBC % Seg Neutrophils # Seg Neutrophils # Man Lymphocytes # (Manual) Monocytes # (Manual) Eosinophils # (Manual) Basophils # (Manual) PT INR Fibrinogen dRVVT Confirm Interp Factor V Activity POC ABG pH 7.465 H POC ABG pCO2 32.0 L POC ABG pO2 ABG pO2 ABG HCO3 ABG Base Excess ABG Hemoglobin Oxyhemoglobin Sodium Potassium Chloride Carbon Dioxide BUN Creatinine Glucose POC Glucose 165 H 160 H Lactic Acid Calcium Phosphorus Magnesium Direct Bilirubin AST ALT Alkaline Phosphatase Lactate Dehydrogenase Troponin T C-Reactive Protein Total Protein Albumin Prealbumin Triglycerides Cholesterol LDL Cholesterol Direct HDL Cholesterol PTH Intact Urine pH Urine WBC (Auto) Urine Creatinine Urine Total Protein Fluid Total Protein Vancomycin Trough Rheumatoid Factor Complement C4 Miscellaneous Test Crossmatch 09/06/16 09/07/16 09/07/16 23:45 02:47 02:47 WBC RBC Hgb Hct MCV MCH MCHC RDW Plt Count Lymph % (Auto) [place] % (Auto) Lymph # [place] # Baso # Seg Neutrophils % Seg Neuts % (Manual) Lymphocytes % (Manual) Monocytes % (Manual) Eosinophils % (Manual) Basophils % (Manual) Nucleated RBC % Seg Neutrophils # Seg Neutrophils # Man Lymphocytes # (Manual) Monocytes # (Manual) Eosinophils # (Manual) Basophils # (Manual) PT INR Fibrinogen dRVVT Confirm Interp Factor V Activity POC ABG pH POC ABG pCO2 POC ABG pO2 ABG pO2 ABG HCO3 ABG Base Excess ABG Hemoglobin Oxyhemoglobin Sodium Potassium Chloride Carbon Dioxide BUN Creatinine Glucose POC Glucose 204 H Lactic Acid Calcium Phosphorus Magnesium Direct Bilirubin AST ALT Alkaline Phosphatase Lactate Dehydrogenase Troponin T C-Reactive Protein Total Protein Albumin Prealbumin Triglycerides Cholesterol LDL Cholesterol Direct HDL Cholesterol PTH Intact Urine pH Urine WBC (Auto) 68.0 H Urine Creatinine 106.1 H Urine Total Protein Fluid Total Protein Vancomycin Trough Rheumatoid Factor Complement C4 Miscellaneous Test Crossmatch 09/07/16 09/07/16 09/07/16 04:50 06:19 06:39 WBC RBC Hgb Hct MCV MCH MCHC RDW Plt Count Lymph % (Auto) [place] % (Auto) Lymph # [place] # Baso # Seg Neutrophils % Seg Neuts % (Manual) Lymphocytes % (Manual) Monocytes % (Manual) Eosinophils % (Manual) Basophils % (Manual) Nucleated RBC % Seg Neutrophils # Seg Neutrophils # Man Lymphocytes # (Manual) Monocytes # (Manual) Eosinophils # (Manual) Basophils # (Manual) PT INR Fibrinogen dRVVT Confirm Interp Factor V Activity POC ABG pH 7.457 H POC ABG pCO2 32.1 L POC ABG pO2 76 L ABG pO2 ABG HCO3 ABG Base Excess ABG Hemoglobin Oxyhemoglobin Sodium 132 L Potassium Chloride 94.7 L Carbon Dioxide BUN 53 H Creatinine 2.9 H Glucose 151 H POC Glucose 149 H Lactic Acid Calcium Phosphorus Magnesium Direct Bilirubin AST ALT Alkaline Phosphatase Lactate Dehydrogenase Troponin T C-Reactive Protein Total Protein Albumin Prealbumin Triglycerides Cholesterol LDL Cholesterol Direct HDL Cholesterol PTH Intact Urine pH Urine WBC (Auto) Urine Creatinine Urine Total Protein Fluid Total Protein Vancomycin Trough Rheumatoid Factor Complement C4 Miscellaneous Test Crossmatch 09/07/16 09/07/16 09/07/16 09:20 11:43 11:43 WBC 19.4 H RBC Hgb 8.3 L Hct 26.4 L D MCV 72 L D MCH 22 L MCHC RDW 17.9 H Plt Count Lymph % (Auto) 8.5 L [place] % (Auto) Lymph # [place] # 1.0 H Baso # Seg Neutrophils % 85.8 H Seg Neuts % (Manual) Lymphocytes % (Manual) Monocytes % (Manual) Eosinophils % (Manual) Basophils % (Manual) Nucleated RBC % Seg Neutrophils # 16.6 H Seg Neutrophils # Man Lymphocytes # (Manual) Monocytes # (Manual) Eosinophils # (Manual) Basophils # (Manual) PT INR Fibrinogen dRVVT Confirm Interp Factor V Activity POC ABG pH POC ABG pCO2 POC ABG pO2 ABG pO2 ABG HCO3 ABG Base Excess ABG Hemoglobin Oxyhemoglobin Sodium 134 L Potassium Chloride 97.2 L Carbon Dioxide 20 L BUN 58 H Creatinine 2.9 H Glucose 147 H POC Glucose Lactic Acid Calcium Phosphorus 2.40 L Magnesium 2.40 H Direct Bilirubin AST ALT Alkaline Phosphatase Lactate Dehydrogenase Troponin T C-Reactive Protein Total Protein 5.8 L Albumin 2.2 L Prealbumin Triglycerides Cholesterol LDL Cholesterol Direct HDL Cholesterol PTH Intact Urine pH Urine WBC (Auto) Urine Creatinine Urine Total Protein Fluid Total Protein Vancomycin Trough Rheumatoid Factor Complement C4 58 H Miscellaneous Test Crossmatch 09/07/16 09/07/16 09/07/16 11:50 16:00 17:31 WBC RBC Hgb Hct MCV MCH MCHC RDW Plt Count Lymph % (Auto) [place] % (Auto) Lymph # [place] # Baso # Seg Neutrophils % Seg Neuts % (Manual) Lymphocytes % (Manual) Monocytes % (Manual) Eosinophils % (Manual) Basophils % (Manual) Nucleated RBC % Seg Neutrophils # Seg Neutrophils # Man Lymphocytes # (Manual) Monocytes # (Manual) Eosinophils # (Manual) Basophils # (Manual) PT INR Fibrinogen dRVVT Confirm Interp Factor V Activity POC ABG pH POC ABG pCO2 POC ABG pO2 158 H ABG pO2 ABG HCO3 ABG Base Excess ABG Hemoglobin Oxyhemoglobin Sodium Potassium Chloride Carbon Dioxide BUN Creatinine Glucose POC Glucose 175 H Lactic Acid Calcium Phosphorus Magnesium Direct Bilirubin AST ALT Alkaline Phosphatase Lactate Dehydrogenase Troponin T C-Reactive Protein Total Protein Albumin Prealbumin Triglycerides Cholesterol LDL Cholesterol Direct HDL Cholesterol PTH Intact Urine pH Urine WBC (Auto) Urine Creatinine 66.3 H Urine Total Protein Fluid Total Protein Vancomycin Trough Rheumatoid Factor Complement C4 Miscellaneous Test Crossmatch 09/07/16 09/08/16 09/08/16 23:50 05:46 06:18 WBC 17.8 H RBC 3.58 L Hgb 8.1 L Hct 25.5 L MCV 71 L MCH 23 L MCHC RDW 18.4 H Plt Count Lymph % (Auto) [place] % (Auto) Lymph # [place] # Baso # Seg Neutrophils % Seg Neuts % (Manual) 92.0 H Lymphocytes % (Manual) 6.0 L Monocytes % (Manual) Eosinophils % (Manual) Basophils % (Manual) Nucleated RBC % Seg Neutrophils # Seg Neutrophils # Man 16.4 H Lymphocytes # (Manual) 1.1 L Monocytes # (Manual) Eosinophils # (Manual) Basophils # (Manual) PT INR Fibrinogen dRVVT Confirm Interp Factor V Activity POC ABG pH POC ABG pCO2 34.3 L POC ABG pO2 71 L ABG pO2 ABG HCO3 ABG Base Excess ABG Hemoglobin Oxyhemoglobin Sodium Potassium Chloride Carbon Dioxide BUN Creatinine Glucose POC Glucose 216 H Lactic Acid Calcium Phosphorus Magnesium Direct Bilirubin AST ALT Alkaline Phosphatase Lactate Dehydrogenase Troponin T C-Reactive Protein Total Protein Albumin Prealbumin Triglycerides Cholesterol LDL Cholesterol Direct HDL Cholesterol PTH Intact Urine pH Urine WBC (Auto) Urine Creatinine Urine Total Protein Fluid Total Protein Vancomycin Trough Rheumatoid Factor Complement C4 Miscellaneous Test Crossmatch 09/08/16 09/08/16 09/08/16 06:18 06:51 10:55 WBC RBC Hgb Hct MCV MCH MCHC RDW Plt Count Lymph % (Auto) [place] % (Auto) Lymph # [place] # Baso # Seg Neutrophils % Seg Neuts % (Manual) Lymphocytes % (Manual) Monocytes % (Manual) Eosinophils % (Manual) Basophils % (Manual) Nucleated RBC % Seg Neutrophils # Seg Neutrophils # Man Lymphocytes # (Manual) Monocytes # (Manual) Eosinophils # (Manual) Basophils # (Manual) PT INR Fibrinogen dRVVT Confirm Interp Factor V Activity POC ABG pH POC ABG pCO2 POC ABG pO2 ABG pO2 ABG HCO3 ABG Base Excess ABG Hemoglobin Oxyhemoglobin Sodium 133 L Potassium Chloride 96.9 L Carbon Dioxide 20 L BUN 63 H Creatinine 2.7 H Glucose 195 H POC Glucose 204 H 169 H Lactic Acid Calcium Phosphorus Magnesium Direct Bilirubin AST ALT Alkaline Phosphatase Lactate Dehydrogenase Troponin T C-Reactive Protein Total Protein Albumin Prealbumin Triglycerides Cholesterol LDL Cholesterol Direct HDL Cholesterol PTH Intact Urine pH Urine WBC (Auto) Urine Creatinine Urine Total Protein Fluid Total Protein Vancomycin Trough Rheumatoid Factor Complement C4 Miscellaneous Test Crossmatch 09/08/16 09/08/16 09/08/16 11:48 11:48 11:48 WBC RBC Hgb Hct MCV MCH MCHC RDW Plt Count Lymph % (Auto) [place] % (Auto) Lymph # [place] # Baso # Seg Neutrophils % Seg Neuts % (Manual) Lymphocytes % (Manual) Monocytes % (Manual) Eosinophils % (Manual) Basophils % (Manual) Nucleated RBC % Seg Neutrophils # Seg Neutrophils # Man Lymphocytes # (Manual) Monocytes # (Manual) Eosinophils # (Manual) Basophils # (Manual) PT INR Fibrinogen 750 H dRVVT Confirm Interp Factor V Activity POC ABG pH POC ABG pCO2 POC ABG pO2 ABG pO2 ABG HCO3 ABG Base Excess ABG Hemoglobin Oxyhemoglobin Sodium Potassium Chloride Carbon Dioxide BUN Creatinine Glucose POC Glucose Lactic Acid Calcium Phosphorus Magnesium Direct Bilirubin AST ALT Alkaline Phosphatase Lactate Dehydrogenase Troponin T C-Reactive Protein 15.70 H Total Protein Albumin Prealbumin Triglycerides Cholesterol LDL Cholesterol Direct HDL Cholesterol PTH Intact Urine pH Urine WBC (Auto) Urine Creatinine Urine Total Protein Fluid Total Protein Vancomycin Trough Rheumatoid Factor 24 H Complement C4 Miscellaneous Test Crossmatch 09/08/16 09/08/16 09/09/16 15:35 18:25 00:24 WBC RBC Hgb Hct MCV MCH MCHC RDW Plt Count Lymph % (Auto) [place] % (Auto) Lymph # [place] # Baso # Seg Neutrophils % Seg Neuts % (Manual) Lymphocytes % (Manual) Monocytes % (Manual) Eosinophils % (Manual) Basophils % (Manual) Nucleated RBC % Seg Neutrophils # Seg Neutrophils # Man Lymphocytes # (Manual) Monocytes # (Manual) Eosinophils # (Manual) Basophils # (Manual) PT INR Fibrinogen dRVVT Confirm Interp Factor V Activity 182 H POC ABG pH POC ABG pCO2 POC ABG pO2 ABG pO2 ABG HCO3 ABG Base Excess ABG Hemoglobin Oxyhemoglobin Sodium Potassium Chloride Carbon Dioxide BUN Creatinine Glucose POC Glucose 184 H 216 H Lactic Acid Calcium Phosphorus Magnesium Direct Bilirubin AST ALT Alkaline Phosphatase Lactate Dehydrogenase Troponin T C-Reactive Protein Total Protein Albumin Prealbumin Triglycerides Cholesterol LDL Cholesterol Direct HDL Cholesterol PTH Intact Urine pH Urine WBC (Auto) Urine Creatinine Urine Total Protein Fluid Total Protein Vancomycin Trough Rheumatoid Factor Complement C4 Miscellaneous Test Crossmatch 09/09/16 09/09/16 09/09/16 03:00 03:00 04:04 WBC 27.9 H RBC Hgb 8.7 L Hct 28.1 L MCV 72 L MCH 22 L MCHC RDW 18.4 H Plt Count 485 H Lymph % (Auto) [place] % (Auto) Lymph # [place] # Baso # Seg Neutrophils % Seg Neuts % (Manual) 77.0 H Lymphocytes % (Manual) 9.0 L Monocytes % (Manual) Eosinophils % (Manual) Basophils % (Manual) Nucleated RBC % Seg Neutrophils # Seg Neutrophils # Man 21.5 H Lymphocytes # (Manual) Monocytes # (Manual) 2.0 H Eosinophils # (Manual) Basophils # (Manual) PT INR Fibrinogen dRVVT Confirm Interp Factor V Activity POC ABG pH POC ABG pCO2 POC ABG pO2 121 H ABG pO2 ABG HCO3 ABG Base Excess ABG Hemoglobin Oxyhemoglobin Sodium 135 L Potassium Chloride 96.3 L Carbon Dioxide 21 L BUN 83 H Creatinine 3.0 H Glucose 135 H POC Glucose Lactic Acid Calcium Phosphorus Magnesium Direct Bilirubin AST ALT Alkaline Phosphatase Lactate Dehydrogenase Troponin T C-Reactive Protein Total Protein Albumin Prealbumin Triglycerides Cholesterol LDL Cholesterol Direct HDL Cholesterol PTH Intact Urine pH Urine WBC (Auto) Urine Creatinine Urine Total Protein Fluid Total Protein Vancomycin Trough Rheumatoid Factor Complement C4 Miscellaneous Test Crossmatch 09/09/16 09/09/16 09/09/16 05:41 11:55 14:13 WBC RBC Hgb Hct MCV MCH MCHC RDW Plt Count Lymph % (Auto) [place] % (Auto) Lymph # [place] # Baso # Seg Neutrophils % Seg Neuts % (Manual) Lymphocytes % (Manual) Monocytes % (Manual) Eosinophils % (Manual) Basophils % (Manual) Nucleated RBC % Seg Neutrophils # Seg Neutrophils # Man Lymphocytes # (Manual) Monocytes # (Manual) Eosinophils # (Manual) Basophils # (Manual) PT INR Fibrinogen dRVVT Confirm Interp Factor V Activity POC ABG pH POC ABG pCO2 POC ABG pO2 ABG pO2 ABG HCO3 ABG Base Excess ABG Hemoglobin Oxyhemoglobin Sodium Potassium Chloride Carbon Dioxide BUN Creatinine Glucose POC Glucose 155 H 186 H Lactic Acid Calcium Phosphorus Magnesium Direct Bilirubin AST ALT Alkaline Phosphatase Lactate Dehydrogenase Troponin T C-Reactive Protein Total Protein Albumin Prealbumin Triglycerides Cholesterol LDL Cholesterol Direct HDL Cholesterol PTH Intact Urine pH Urine WBC (Auto) 25.0 H Urine Creatinine Urine Total Protein Fluid Total Protein Vancomycin Trough Rheumatoid Factor Complement C4 Miscellaneous Test Crossmatch 09/09/16 09/09/16 09/10/16 17:33 23:13 05:09 WBC RBC Hgb Hct MCV MCH MCHC RDW Plt Count Lymph % (Auto) [place] % (Auto) Lymph # [place] # Baso # Seg Neutrophils % Seg Neuts % (Manual) Lymphocytes % (Manual) Monocytes % (Manual) Eosinophils % (Manual) Basophils % (Manual) Nucleated RBC % Seg Neutrophils # Seg Neutrophils # Man Lymphocytes # (Manual) Monocytes # (Manual) Eosinophils # (Manual) Basophils # (Manual) PT INR Fibrinogen dRVVT Confirm Interp Factor V Activity POC ABG pH POC ABG pCO2 POC ABG pO2 74 L ABG pO2 ABG HCO3 ABG Base Excess ABG Hemoglobin Oxyhemoglobin Sodium Potassium Chloride Carbon Dioxide BUN Creatinine Glucose POC Glucose 211 H 215 H Lactic Acid Calcium Phosphorus Magnesium Direct Bilirubin AST ALT Alkaline Phosphatase Lactate Dehydrogenase Troponin T C-Reactive Protein Total Protein Albumin Prealbumin Triglycerides Cholesterol LDL Cholesterol Direct HDL Cholesterol PTH Intact Urine pH Urine WBC (Auto) Urine Creatinine Urine Total Protein Fluid Total Protein Vancomycin Trough Rheumatoid Factor Complement C4 Miscellaneous Test Crossmatch 09/10/16 09/10/16 09/10/16 05:17 05:17 11:31 WBC 15.8 H RBC 3.25 L Hgb 7.3 L Hct 22.9 L MCV 71 L MCH 23 L MCHC RDW 18.4 H Plt Count Lymph % (Auto) [place] % (Auto) Lymph # [place] # Baso # Seg Neutrophils % Seg Neuts % (Manual) 91.0 H Lymphocytes % (Manual) 4.0 L Monocytes % (Manual) Eosinophils % (Manual) Basophils % (Manual) Nucleated RBC % Seg Neutrophils # Seg Neutrophils # Man 14.4 H Lymphocytes # (Manual) 0.6 L Monocytes # (Manual) Eosinophils # (Manual) Basophils # (Manual) PT INR Fibrinogen dRVVT Confirm Interp Factor V Activity POC ABG pH POC ABG pCO2 POC ABG pO2 ABG pO2 ABG HCO3 ABG Base Excess ABG Hemoglobin Oxyhemoglobin Sodium Potassium Chloride Carbon Dioxide 21 L BUN 93 H Creatinine 2.9 H Glucose 146 H POC Glucose 188 H Lactic Acid Calcium 8.1 L Phosphorus Magnesium Direct Bilirubin AST ALT Alkaline Phosphatase Lactate Dehydrogenase Troponin T C-Reactive Protein Total Protein Albumin Prealbumin Triglycerides Cholesterol LDL Cholesterol Direct HDL Cholesterol PTH Intact Urine pH Urine WBC (Auto) Urine Creatinine Urine Total Protein Fluid Total Protein Vancomycin Trough Rheumatoid Factor Complement C4 Miscellaneous Test Crossmatch 09/10/16 09/10/16 09/10/16 13:17 17:20 23:32 WBC RBC Hgb Hct MCV MCH MCHC RDW Plt Count Lymph % (Auto) [place] % (Auto) Lymph # [place] # Baso # Seg Neutrophils % Seg Neuts % (Manual) Lymphocytes % (Manual) Monocytes % (Manual) Eosinophils % (Manual) Basophils % (Manual) Nucleated RBC % Seg Neutrophils # Seg Neutrophils # Man Lymphocytes # (Manual) Monocytes # (Manual) Eosinophils # (Manual) Basophils # (Manual) PT INR Fibrinogen dRVVT Confirm Interp Factor V Activity POC ABG pH POC ABG pCO2 POC ABG pO2 ABG pO2 ABG HCO3 ABG Base Excess ABG Hemoglobin Oxyhemoglobin Sodium Potassium Chloride Carbon Dioxide BUN Creatinine Glucose POC Glucose 199 H 186 H Lactic Acid Calcium Phosphorus Magnesium Direct Bilirubin AST ALT Alkaline Phosphatase Lactate Dehydrogenase Troponin T C-Reactive Protein Total Protein Albumin Prealbumin Triglycerides Cholesterol LDL Cholesterol Direct HDL Cholesterol PTH Intact Urine pH Urine WBC (Auto) Urine Creatinine Urine Total Protein Fluid Total Protein Vancomycin Trough Rheumatoid Factor Complement C4 Miscellaneous Test Crossmatch See Detail 09/11/16 09/11/16 09/11/16 05:10 05:10 05:17 WBC 28.4 H RBC Hgb 9.2 L Hct 29.3 L D MCV 73 L MCH 23 L MCHC RDW 18.9 H Plt Count 452 H Lymph % (Auto) [place] % (Auto) Lymph # [place] # Baso # Seg Neutrophils % Seg Neuts % (Manual) 89.5 H Lymphocytes % (Manual) 2.0 L Monocytes % (Manual) Eosinophils % (Manual) Basophils % (Manual) Nucleated RBC % Seg Neutrophils # Seg Neutrophils # Man 25.4 H Lymphocytes # (Manual) 0.6 L Monocytes # (Manual) 1.3 H Eosinophils # (Manual) Basophils # (Manual) PT INR Fibrinogen dRVVT Confirm Interp Factor V Activity POC ABG pH POC ABG pCO2 POC ABG pO2 ABG pO2 ABG HCO3 ABG Base Excess ABG Hemoglobin Oxyhemoglobin Sodium 136 L Potassium Chloride Carbon Dioxide 18 L BUN 107 H Creatinine 2.6 H Glucose 187 H POC Glucose 230 H Lactic Acid Calcium 8.3 L Phosphorus Magnesium Direct Bilirubin AST ALT Alkaline Phosphatase Lactate Dehydrogenase Troponin T C-Reactive Protein Total Protein Albumin Prealbumin Triglycerides Cholesterol LDL Cholesterol Direct HDL Cholesterol PTH Intact Urine pH Urine WBC (Auto) Urine Creatinine Urine Total Protein Fluid Total Protein Vancomycin Trough Rheumatoid Factor Complement C4 Miscellaneous Test Crossmatch 09/11/16 09/11/16 09/11/16 05:55 12:02 17:32 WBC RBC Hgb Hct MCV MCH MCHC RDW Plt Count Lymph % (Auto) [place] % (Auto) Lymph # [place] # Baso # Seg Neutrophils % Seg Neuts % (Manual) Lymphocytes % (Manual) Monocytes % (Manual) Eosinophils % (Manual) Basophils % (Manual) Nucleated RBC % Seg Neutrophils # Seg Neutrophils # Man Lymphocytes # (Manual) Monocytes # (Manual) Eosinophils # (Manual) Basophils # (Manual) PT INR Fibrinogen dRVVT Confirm Interp Factor V Activity POC ABG pH POC ABG pCO2 33.8 L POC ABG pO2 ABG pO2 ABG HCO3 ABG Base Excess ABG Hemoglobin Oxyhemoglobin Sodium Potassium Chloride Carbon Dioxide BUN Creatinine Glucose POC Glucose 191 H 239 H Lactic Acid Calcium Phosphorus Magnesium Direct Bilirubin AST ALT Alkaline Phosphatase Lactate Dehydrogenase Troponin T C-Reactive Protein Total Protein Albumin Prealbumin Triglycerides Cholesterol LDL Cholesterol Direct HDL Cholesterol PTH Intact Urine pH Urine WBC (Auto) Urine Creatinine Urine Total Protein Fluid Total Protein Vancomycin Trough Rheumatoid Factor Complement C4 Miscellaneous Test Crossmatch 09/11/16 09/12/16 09/12/16 23:52 05:09 05:32 WBC RBC Hgb Hct MCV MCH MCHC RDW Plt Count Lymph % (Auto) [place] % (Auto) Lymph # [place] # Baso # Seg Neutrophils % Seg Neuts % (Manual) Lymphocytes % (Manual) Monocytes % (Manual) Eosinophils % (Manual) Basophils % (Manual) Nucleated RBC % Seg Neutrophils # Seg Neutrophils # Man Lymphocytes # (Manual) Monocytes # (Manual) Eosinophils # (Manual) Basophils # (Manual) PT INR Fibrinogen dRVVT Confirm Interp Factor V Activity POC ABG pH POC ABG pCO2 34.6 L POC ABG pO2 ABG pO2 ABG HCO3 ABG Base Excess ABG Hemoglobin Oxyhemoglobin Sodium Potassium Chloride Carbon Dioxide BUN Creatinine Glucose POC Glucose 265 H 184 H Lactic Acid Calcium Phosphorus Magnesium Direct Bilirubin AST ALT Alkaline Phosphatase Lactate Dehydrogenase Troponin T C-Reactive Protein Total Protein Albumin Prealbumin Triglycerides Cholesterol LDL Cholesterol Direct HDL Cholesterol PTH Intact Urine pH Urine WBC (Auto) Urine Creatinine Urine Total Protein Fluid Total Protein Vancomycin Trough Rheumatoid Factor Complement C4 Miscellaneous Test Crossmatch 09/12/16 09/12/16 09/12/16 06:45 06:45 07:22 WBC 31.7 H RBC 3.54 L Hgb 8.3 L Hct 25.9 L MCV 73 L MCH 23 L MCHC RDW 18.9 H Plt Count Lymph % (Auto) [place] % (Auto) Lymph # [place] # Baso # Seg Neutrophils % Seg Neuts % (Manual) 88.5 H Lymphocytes % (Manual) 4.5 L Monocytes % (Manual) Eosinophils % (Manual) Basophils % (Manual) Nucleated RBC % Seg Neutrophils # Seg Neutrophils # Man 28.1 H Lymphocytes # (Manual) Monocytes # (Manual) 1.0 H Eosinophils # (Manual) Basophils # (Manual) PT INR Fibrinogen dRVVT Confirm Interp Factor V Activity POC ABG pH POC ABG pCO2 POC ABG pO2 ABG pO2 ABG HCO3 ABG Base Excess ABG Hemoglobin Oxyhemoglobin Sodium Potassium Chloride Carbon Dioxide 20 L BUN 115 H Creatinine 2.7 H Glucose 165 H POC Glucose Lactic Acid Calcium 8.0 L Phosphorus Magnesium Direct Bilirubin AST ALT Alkaline Phosphatase Lactate Dehydrogenase Troponin T C-Reactive Protein Total Protein Albumin Prealbumin Triglycerides 217 H Cholesterol LDL Cholesterol Direct HDL Cholesterol PTH Intact Urine pH Urine WBC (Auto) Urine Creatinine Urine Total Protein Fluid Total Protein Vancomycin Trough Rheumatoid Factor Complement C4 Miscellaneous Test Crossmatch 09/12/16 09/12/16 09/12/16 07:22 09:59 12:21 WBC RBC Hgb Hct MCV MCH MCHC RDW Plt Count Lymph % (Auto) [place] % (Auto) Lymph # [place] # Baso # Seg Neutrophils % Seg Neuts % (Manual) Lymphocytes % (Manual) Monocytes % (Manual) Eosinophils % (Manual) Basophils % (Manual) Nucleated RBC % Seg Neutrophils # Seg Neutrophils # Man Lymphocytes # (Manual) Monocytes # (Manual) Eosinophils # (Manual) Basophils # (Manual) PT INR Fibrinogen dRVVT Confirm Interp Positive H Factor V Activity POC ABG pH POC ABG pCO2 POC ABG pO2 ABG pO2 ABG HCO3 ABG Base Excess ABG Hemoglobin Oxyhemoglobin Sodium Potassium Chloride Carbon Dioxide BUN Creatinine Glucose POC Glucose 224 H Lactic Acid Calcium Phosphorus Magnesium Direct Bilirubin AST ALT Alkaline Phosphatase Lactate Dehydrogenase Troponin T C-Reactive Protein 1.70 H Total Protein Albumin Prealbumin Triglycerides Cholesterol LDL Cholesterol Direct HDL Cholesterol PTH Intact Urine pH Urine WBC (Auto) Urine Creatinine Urine Total Protein Fluid Total Protein Vancomycin Trough Rheumatoid Factor Complement C4 Miscellaneous Test Crossmatch 09/12/16 09/12/16 09/13/16 16:51 23:28 04:00 WBC 45.0 H* RBC Hgb 9.4 L Hct MCV 75 L MCH 23 L MCHC RDW 19.0 H Plt Count 470 H Lymph % (Auto) [place] % (Auto) Lymph # [place] # Baso # Seg Neutrophils % Seg Neuts % (Manual) 89.0 H Lymphocytes % (Manual) 5.0 L Monocytes % (Manual) Eosinophils % (Manual) Basophils % (Manual) Nucleated RBC % Seg Neutrophils # Seg Neutrophils # Man 40.1 H Lymphocytes # (Manual) Monocytes # (Manual) Eosinophils # (Manual) Basophils # (Manual) PT INR Fibrinogen dRVVT Confirm Interp Factor V Activity POC ABG pH POC ABG pCO2 POC ABG pO2 ABG pO2 ABG HCO3 ABG Base Excess ABG Hemoglobin Oxyhemoglobin Sodium Potassium Chloride Carbon Dioxide BUN Creatinine Glucose POC Glucose 169 H 150 H Lactic Acid Calcium Phosphorus Magnesium Direct Bilirubin AST ALT Alkaline Phosphatase Lactate Dehydrogenase Troponin T C-Reactive Protein Total Protein Albumin Prealbumin Triglycerides Cholesterol LDL Cholesterol Direct HDL Cholesterol PTH Intact Urine pH Urine WBC (Auto) Urine Creatinine Urine Total Protein Fluid Total Protein Vancomycin Trough Rheumatoid Factor Complement C4 Miscellaneous Test Crossmatch 09/13/16 09/13/16 09/13/16 04:00 11:26 17:31 WBC RBC Hgb Hct MCV MCH MCHC RDW Plt Count Lymph % (Auto) [place] % (Auto) Lymph # [place] # Baso # Seg Neutrophils % Seg Neuts % (Manual) Lymphocytes % (Manual) Monocytes % (Manual) Eosinophils % (Manual) Basophils % (Manual) Nucleated RBC % Seg Neutrophils # Seg Neutrophils # Man Lymphocytes # (Manual) Monocytes # (Manual) Eosinophils # (Manual) Basophils # (Manual) PT INR Fibrinogen dRVVT Confirm Interp Factor V Activity POC ABG pH POC ABG pCO2 POC ABG pO2 ABG pO2 ABG HCO3 ABG Base Excess ABG Hemoglobin Oxyhemoglobin Sodium Potassium Chloride Carbon Dioxide 20 L BUN 116 H Creatinine 3.0 H Glucose 172 H POC Glucose 140 H 183 H Lactic Acid Calcium Phosphorus Magnesium Direct Bilirubin AST ALT Alkaline Phosphatase Lactate Dehydrogenase Troponin T C-Reactive Protein Total Protein 6.2 L Albumin 2.9 L Prealbumin Triglycerides Cholesterol LDL Cholesterol Direct HDL Cholesterol PTH Intact Urine pH Urine WBC (Auto) Urine Creatinine Urine Total Protein Fluid Total Protein Vancomycin Trough Rheumatoid Factor Complement C4 Miscellaneous Test Crossmatch 09/13/16 09/14/16 09/14/16 23:23 04:06 04:07 WBC 29.4 H RBC Hgb 8.9 L Hct 27.3 L MCV 75 L MCH 24 L MCHC RDW 19.1 H Plt Count Lymph % (Auto) [place] % (Auto) Lymph # [place] # Baso # Seg Neutrophils % Seg Neuts % (Manual) 84.0 H Lymphocytes % (Manual) 6.0 L Monocytes % (Manual) 9.0 H Eosinophils % (Manual) Basophils % (Manual) Nucleated RBC % Seg Neutrophils # Seg Neutrophils # Man 24.7 H Lymphocytes # (Manual) Monocytes # (Manual) 2.6 H Eosinophils # (Manual) Basophils # (Manual) PT INR Fibrinogen dRVVT Confirm Interp Factor V Activity POC ABG pH 7.342 L POC ABG pCO2 POC ABG pO2 116 H ABG pO2 ABG HCO3 ABG Base Excess ABG Hemoglobin Oxyhemoglobin Sodium Potassium Chloride Carbon Dioxide BUN Creatinine Glucose POC Glucose 154 H Lactic Acid Calcium Phosphorus Magnesium Direct Bilirubin AST ALT Alkaline Phosphatase Lactate Dehydrogenase Troponin T C-Reactive Protein Total Protein Albumin Prealbumin Triglycerides Cholesterol LDL Cholesterol Direct HDL Cholesterol PTH Intact Urine pH Urine WBC (Auto) Urine Creatinine Urine Total Protein Fluid Total Protein Vancomycin Trough Rheumatoid Factor Complement C4 Miscellaneous Test Crossmatch 09/14/16 09/14/16 09/14/16 04:07 05:29 12:19 WBC RBC Hgb Hct MCV MCH MCHC RDW Plt Count Lymph % (Auto) [place] % (Auto) Lymph # [place] # Baso # Seg Neutrophils % Seg Neuts % (Manual) Lymphocytes % (Manual) Monocytes % (Manual) Eosinophils % (Manual) Basophils % (Manual) Nucleated RBC % Seg Neutrophils # Seg Neutrophils # Man Lymphocytes # (Manual) Monocytes # (Manual) Eosinophils # (Manual) Basophils # (Manual) PT INR Fibrinogen dRVVT Confirm Interp Factor V Activity POC ABG pH POC ABG pCO2 POC ABG pO2 ABG pO2 ABG HCO3 ABG Base Excess ABG Hemoglobin Oxyhemoglobin Sodium 136 L Potassium Chloride Carbon Dioxide 18 L BUN 121 H Creatinine 2.8 H Glucose 214 H POC Glucose 239 H 181 H Lactic Acid Calcium Phosphorus Magnesium Direct Bilirubin AST ALT Alkaline Phosphatase Lactate Dehydrogenase Troponin T C-Reactive Protein Total Protein Albumin Prealbumin Triglycerides Cholesterol LDL Cholesterol Direct HDL Cholesterol PTH Intact Urine pH Urine WBC (Auto) Urine Creatinine Urine Total Protein Fluid Total Protein Vancomycin Trough Rheumatoid Factor Complement C4 Miscellaneous Test Crossmatch 09/14/16 09/14/16 09/15/16 18:12 23:37 05:00 WBC 26.1 H RBC 3.05 L Hgb 7.2 L Hct 22.9 L MCV 75 L MCH 24 L MCHC RDW 19.0 H Plt Count Lymph % (Auto) [place] % (Auto) Lymph # [place] # Baso # Seg Neutrophils % Seg Neuts % (Manual) Lymphocytes % (Manual) Monocytes % (Manual) Eosinophils % (Manual) Basophils % (Manual) Nucleated RBC % Seg Neutrophils # Seg Neutrophils # Man Lymphocytes # (Manual) Monocytes # (Manual) Eosinophils # (Manual) Basophils # (Manual) PT INR Fibrinogen dRVVT Confirm Interp Factor V Activity POC ABG pH POC ABG pCO2 POC ABG pO2 ABG pO2 ABG HCO3 ABG Base Excess ABG Hemoglobin Oxyhemoglobin Sodium Potassium Chloride Carbon Dioxide BUN Creatinine Glucose POC Glucose 266 H 154 H Lactic Acid Calcium Phosphorus Magnesium Direct Bilirubin AST ALT Alkaline Phosphatase Lactate Dehydrogenase Troponin T C-Reactive Protein Total Protein Albumin Prealbumin Triglycerides Cholesterol LDL Cholesterol Direct HDL Cholesterol PTH Intact Urine pH Urine WBC (Auto) Urine Creatinine Urine Total Protein Fluid Total Protein Vancomycin Trough Rheumatoid Factor Complement C4 Miscellaneous Test Crossmatch 09/15/16 09/15/16 09/15/16 05:00 05:17 12:45 WBC RBC Hgb Hct MCV MCH MCHC RDW Plt Count Lymph % (Auto) [place] % (Auto) Lymph # [place] # Baso # Seg Neutrophils % Seg Neuts % (Manual) Lymphocytes % (Manual) Monocytes % (Manual) Eosinophils % (Manual) Basophils % (Manual) Nucleated RBC % Seg Neutrophils # Seg Neutrophils # Man Lymphocytes # (Manual) Monocytes # (Manual) Eosinophils # (Manual) Basophils # (Manual) PT INR Fibrinogen dRVVT Confirm Interp Factor V Activity POC ABG pH POC ABG pCO2 POC ABG pO2 ABG pO2 ABG HCO3 ABG Base Excess ABG Hemoglobin Oxyhemoglobin Sodium Potassium 5.2 H Chloride Carbon Dioxide 18 L BUN 139 H Creatinine 3.7 H Glucose 227 H POC Glucose 226 H 244 H Lactic Acid Calcium 8.3 L Phosphorus Magnesium Direct Bilirubin AST ALT Alkaline Phosphatase Lactate Dehydrogenase Troponin T C-Reactive Protein Total Protein Albumin Prealbumin Triglycerides Cholesterol LDL Cholesterol Direct HDL Cholesterol PTH Intact Urine pH Urine WBC (Auto) Urine Creatinine Urine Total Protein Fluid Total Protein Vancomycin Trough Rheumatoid Factor Complement C4 Miscellaneous Test Crossmatch 09/15/16 09/15/16 09/15/16 14:32 17:33 23:35 WBC RBC Hgb Hct MCV MCH MCHC RDW Plt Count Lymph % (Auto) [place] % (Auto) Lymph # [place] # Baso # Seg Neutrophils % Seg Neuts % (Manual) Lymphocytes % (Manual) Monocytes % (Manual) Eosinophils % (Manual) Basophils % (Manual) Nucleated RBC % Seg Neutrophils # Seg Neutrophils # Man Lymphocytes # (Manual) Monocytes # (Manual) Eosinophils # (Manual) Basophils # (Manual) PT INR Fibrinogen dRVVT Confirm Interp Factor V Activity POC ABG pH POC ABG pCO2 27.7 L POC ABG pO2 120 H ABG pO2 ABG HCO3 ABG Base Excess ABG Hemoglobin Oxyhemoglobin Sodium Potassium Chloride Carbon Dioxide BUN Creatinine Glucose POC Glucose 232 H 167 H Lactic Acid Calcium Phosphorus Magnesium Direct Bilirubin AST ALT Alkaline Phosphatase Lactate Dehydrogenase Troponin T C-Reactive Protein Total Protein Albumin Prealbumin Triglycerides Cholesterol LDL Cholesterol Direct HDL Cholesterol PTH Intact Urine pH Urine WBC (Auto) Urine Creatinine Urine Total Protein Fluid Total Protein Vancomycin Trough Rheumatoid Factor Complement C4 Miscellaneous Test Crossmatch 09/16/16 09/16/16 09/16/16 03:58 10:27 10:27 WBC 19.0 H RBC 2.77 L Hgb 6.5 L Hct 20.9 L MCV 76 L MCH 23 L MCHC RDW 19.3 H Plt Count Lymph % (Auto) 11.0 L [place] % (Auto) Lymph # [place] # 1.1 H Baso # Seg Neutrophils % 82.5 H Seg Neuts % (Manual) Lymphocytes % (Manual) Monocytes % (Manual) Eosinophils % (Manual) Basophils % (Manual) Nucleated RBC % Seg Neutrophils # 15.7 H Seg Neutrophils # Man Lymphocytes # (Manual) Monocytes # (Manual) Eosinophils # (Manual) Basophils # (Manual) PT INR Fibrinogen dRVVT Confirm Interp Factor V Activity POC ABG pH POC ABG pCO2 POC ABG pO2 ABG pO2 ABG HCO3 ABG Base Excess ABG Hemoglobin Oxyhemoglobin Sodium Potassium Chloride 109.3 H Carbon Dioxide 18 L BUN 139 H Creatinine 4.1 H Glucose 144 H POC Glucose 146 H Lactic Acid Calcium 8.1 L Phosphorus Magnesium Direct Bilirubin AST ALT Alkaline Phosphatase Lactate Dehydrogenase Troponin T C-Reactive Protein Total Protein Albumin Prealbumin Triglycerides Cholesterol LDL Cholesterol Direct HDL Cholesterol PTH Intact Urine pH Urine WBC (Auto) Urine Creatinine Urine Total Protein Fluid Total Protein Vancomycin Trough Rheumatoid Factor Complement C4 Miscellaneous Test Crossmatch 09/16/16 09/16/16 09/16/16 12:04 12:10 13:55 WBC RBC Hgb Hct MCV MCH MCHC RDW Plt Count Lymph % (Auto) [place] % (Auto) Lymph # [place] # Baso # Seg Neutrophils % Seg Neuts % (Manual) Lymphocytes % (Manual) Monocytes % (Manual) Eosinophils % (Manual) Basophils % (Manual) Nucleated RBC % Seg Neutrophils # Seg Neutrophils # Man Lymphocytes # (Manual) Monocytes # (Manual) Eosinophils # (Manual) Basophils # (Manual) PT INR Fibrinogen dRVVT Confirm Interp Factor V Activity POC ABG pH POC ABG pCO2 32.9 L POC ABG pO2 ABG pO2 ABG HCO3 ABG Base Excess ABG Hemoglobin Oxyhemoglobin Sodium Potassium Chloride Carbon Dioxide BUN Creatinine Glucose POC Glucose 185 H Lactic Acid Calcium Phosphorus Magnesium Direct Bilirubin AST ALT Alkaline Phosphatase Lactate Dehydrogenase Troponin T C-Reactive Protein Total Protein Albumin Prealbumin Triglycerides Cholesterol LDL Cholesterol Direct HDL Cholesterol PTH Intact Urine pH Urine WBC (Auto) Urine Creatinine Urine Total Protein Fluid Total Protein Vancomycin Trough Rheumatoid Factor Complement C4 Miscellaneous Test Crossmatch See Detail 09/16/16 09/16/16 09/16/16 17:55 19:19 23:48 WBC RBC Hgb Hct MCV MCH MCHC RDW Plt Count Lymph % (Auto) [place] % (Auto) Lymph # [place] # Baso # Seg Neutrophils % Seg Neuts % (Manual) Lymphocytes % (Manual) Monocytes % (Manual) Eosinophils % (Manual) Basophils % (Manual) Nucleated RBC % Seg Neutrophils # Seg Neutrophils # Man Lymphocytes # (Manual) Monocytes # (Manual) Eosinophils # (Manual) Basophils # (Manual) PT INR Fibrinogen dRVVT Confirm Interp Factor V Activity POC ABG pH POC ABG pCO2 POC ABG pO2 ABG pO2 ABG HCO3 ABG Base Excess ABG Hemoglobin Oxyhemoglobin Sodium Potassium Chloride Carbon Dioxide BUN Creatinine Glucose POC Glucose 222 H 107 H Lactic Acid Calcium Phosphorus Magnesium Direct Bilirubin AST ALT Alkaline Phosphatase Lactate Dehydrogenase Troponin T C-Reactive Protein Total Protein Albumin Prealbumin Triglycerides Cholesterol LDL Cholesterol Direct HDL Cholesterol PTH Intact Urine pH Urine WBC (Auto) Urine Creatinine 47.4 H Urine Total Protein 16 H Fluid Total Protein Vancomycin Trough Rheumatoid Factor Complement C4 Miscellaneous Test Crossmatch 09/17/16 09/17/16 09/17/16 03:45 03:45 04:55 WBC 19.6 H RBC 3.41 L Hgb 8.5 L Hct 26.7 L MCV 78 L MCH 25 L MCHC RDW 19.9 H Plt Count Lymph % (Auto) 9.3 L [place] % (Auto) Lymph # [place] # 1.2 H Baso # Seg Neutrophils % 83.9 H Seg Neuts % (Manual) Lymphocytes % (Manual) Monocytes % (Manual) Eosinophils % (Manual) Basophils % (Manual) Nucleated RBC % Seg Neutrophils # 16.4 H Seg Neutrophils # Man Lymphocytes # (Manual) Monocytes # (Manual) Eosinophils # (Manual) Basophils # (Manual) PT INR Fibrinogen dRVVT Confirm Interp Factor V Activity POC ABG pH POC ABG pCO2 POC ABG pO2 ABG pO2 ABG HCO3 ABG Base Excess ABG Hemoglobin Oxyhemoglobin Sodium 146 H Potassium 5.1 H Chloride 110.9 H Carbon Dioxide 16 L BUN 146 H Creatinine 4.0 H Glucose 108 H POC Glucose 133 H Lactic Acid Calcium Phosphorus Magnesium 3.00 H Direct Bilirubin AST ALT Alkaline Phosphatase Lactate Dehydrogenase Troponin T C-Reactive Protein Total Protein Albumin Prealbumin Triglycerides Cholesterol LDL Cholesterol Direct HDL Cholesterol PTH Intact Urine pH Urine WBC (Auto) Urine Creatinine Urine Total Protein Fluid Total Protein Vancomycin Trough Rheumatoid Factor Complement C4 Miscellaneous Test Crossmatch 09/17/16 09/17/16 09/17/16 11:15 17:33 23:47 WBC RBC Hgb Hct MCV MCH MCHC RDW Plt Count Lymph % (Auto) [place] % (Auto) Lymph # [place] # Baso # Seg Neutrophils % Seg Neuts % (Manual) Lymphocytes % (Manual) Monocytes % (Manual) Eosinophils % (Manual) Basophils % (Manual) Nucleated RBC % Seg Neutrophils # Seg Neutrophils # Man Lymphocytes # (Manual) Monocytes # (Manual) Eosinophils # (Manual) Basophils # (Manual) PT INR Fibrinogen dRVVT Confirm Interp Factor V Activity POC ABG pH POC ABG pCO2 POC ABG pO2 ABG pO2 ABG HCO3 ABG Base Excess ABG Hemoglobin Oxyhemoglobin Sodium Potassium Chloride Carbon Dioxide BUN Creatinine Glucose POC Glucose 176 H 246 H 148 H Lactic Acid Calcium Phosphorus Magnesium Direct Bilirubin AST ALT Alkaline Phosphatase Lactate Dehydrogenase Troponin T C-Reactive Protein Total Protein Albumin Prealbumin Triglycerides Cholesterol LDL Cholesterol Direct HDL Cholesterol PTH Intact Urine pH Urine WBC (Auto) Urine Creatinine Urine Total Protein Fluid Total Protein Vancomycin Trough Rheumatoid Factor Complement C4 Miscellaneous Test Crossmatch 09/18/16 09/18/16 09/18/16 05:33 08:31 08:31 WBC 18.0 H RBC 3.17 L Hgb 9.0 L Hct 25.7 L MCV MCH MCHC 35 H RDW 20.4 H Plt Count Lymph % (Auto) [place] % (Auto) Lymph # [place] # Baso # Seg Neutrophils % Seg Neuts % (Manual) Lymphocytes % (Manual) Monocytes % (Manual) Eosinophils % (Manual) Basophils % (Manual) Nucleated RBC % Seg Neutrophils # Seg Neutrophils # Man Lymphocytes # (Manual) Monocytes # (Manual) Eosinophils # (Manual) Basophils # (Manual) PT INR Fibrinogen dRVVT Confirm Interp Factor V Activity POC ABG pH POC ABG pCO2 POC ABG pO2 ABG pO2 ABG HCO3 ABG Base Excess ABG Hemoglobin Oxyhemoglobin Sodium Potassium Chloride Carbon Dioxide 15 L BUN 124 H Creatinine 3.8 H Glucose POC Glucose 120 H Lactic Acid Calcium 8.1 L Phosphorus Magnesium Direct Bilirubin AST ALT Alkaline Phosphatase Lactate Dehydrogenase Troponin T C-Reactive Protein Total Protein Albumin Prealbumin Triglycerides Cholesterol LDL Cholesterol Direct HDL Cholesterol PTH Intact Urine pH Urine WBC (Auto) Urine Creatinine Urine Total Protein Fluid Total Protein Vancomycin Trough Rheumatoid Factor Complement C4 Miscellaneous Test Crossmatch 09/18/16 09/18/16 09/18/16 12:03 15:34 17:50 WBC RBC Hgb Hct MCV MCH MCHC RDW Plt Count Lymph % (Auto) [place] % (Auto) Lymph # [place] # Baso # Seg Neutrophils % Seg Neuts % (Manual) Lymphocytes % (Manual) Monocytes % (Manual) Eosinophils % (Manual) Basophils % (Manual) Nucleated RBC % Seg Neutrophils # Seg Neutrophils # Man Lymphocytes # (Manual) Monocytes # (Manual) Eosinophils # (Manual) Basophils # (Manual) PT INR Fibrinogen dRVVT Confirm Interp Factor V Activity POC ABG pH POC ABG pCO2 25.7 L POC ABG pO2 66 L ABG pO2 ABG HCO3 ABG Base Excess ABG Hemoglobin Oxyhemoglobin Sodium Potassium Chloride Carbon Dioxide BUN Creatinine Glucose POC Glucose 156 H 220 H Lactic Acid Calcium Phosphorus Magnesium Direct Bilirubin AST ALT Alkaline Phosphatase Lactate Dehydrogenase Troponin T C-Reactive Protein Total Protein Albumin Prealbumin Triglycerides Cholesterol LDL Cholesterol Direct HDL Cholesterol PTH Intact Urine pH Urine WBC (Auto) Urine Creatinine Urine Total Protein Fluid Total Protein Vancomycin Trough Rheumatoid Factor Complement C4 Miscellaneous Test Crossmatch 09/19/16 09/19/16 09/19/16 06:21 09:50 09:50 WBC 17.1 H RBC 3.49 L Hgb 9.0 L Hct 28.1 L MCV MCH 26 L MCHC RDW 20.8 H Plt Count Lymph % (Auto) 11.5 L [place] % (Auto) 7.5 H Lymph # [place] # 1.3 H Baso # Seg Neutrophils % 79.8 H Seg Neuts % (Manual) Lymphocytes % (Manual) Monocytes % (Manual) Eosinophils % (Manual) Basophils % (Manual) Nucleated RBC % Seg Neutrophils # 13.7 H Seg Neutrophils # Man Lymphocytes # (Manual) Monocytes # (Manual) Eosinophils # (Manual) Basophils # (Manual) PT INR Fibrinogen dRVVT Confirm Interp Factor V Activity POC ABG pH POC ABG pCO2 POC ABG pO2 ABG pO2 ABG HCO3 ABG Base Excess ABG Hemoglobin Oxyhemoglobin Sodium Potassium Chloride 108.6 H Carbon Dioxide 15 L BUN 125 H Creatinine 4.1 H Glucose 124 H POC Glucose 119 H Lactic Acid Calcium Phosphorus Magnesium Direct Bilirubin AST ALT Alkaline Phosphatase Lactate Dehydrogenase Troponin T C-Reactive Protein Total Protein Albumin Prealbumin Triglycerides Cholesterol LDL Cholesterol Direct HDL Cholesterol PTH Intact Urine pH Urine WBC (Auto) Urine Creatinine Urine Total Protein Fluid Total Protein Vancomycin Trough Rheumatoid Factor Complement C4 Miscellaneous Test Crossmatch 09/19/16 09/19/16 09/19/16 11:25 17:53 23:36 WBC RBC Hgb Hct MCV MCH MCHC RDW Plt Count Lymph % (Auto) [place] % (Auto) Lymph # [place] # Baso # Seg Neutrophils % Seg Neuts % (Manual) Lymphocytes % (Manual) Monocytes % (Manual) Eosinophils % (Manual) Basophils % (Manual) Nucleated RBC % Seg Neutrophils # Seg Neutrophils # Man Lymphocytes # (Manual) Monocytes # (Manual) Eosinophils # (Manual) Basophils # (Manual) PT INR Fibrinogen dRVVT Confirm Interp Factor V Activity POC ABG pH POC ABG pCO2 POC ABG pO2 ABG pO2 ABG HCO3 ABG Base Excess ABG Hemoglobin Oxyhemoglobin Sodium Potassium Chloride Carbon Dioxide BUN Creatinine Glucose POC Glucose 160 H 245 H 121 H Lactic Acid Calcium Phosphorus Magnesium Direct Bilirubin AST ALT Alkaline Phosphatase Lactate Dehydrogenase Troponin T C-Reactive Protein Total Protein Albumin Prealbumin Triglycerides Cholesterol LDL Cholesterol Direct HDL Cholesterol PTH Intact Urine pH Urine WBC (Auto) Urine Creatinine Urine Total Protein Fluid Total Protein Vancomycin Trough Rheumatoid Factor Complement C4 Miscellaneous Test Crossmatch 09/20/16 09/20/16 09/20/16 04:10 04:10 04:10 WBC 17.0 H RBC 3.21 L Hgb 8.2 L Hct 25.5 L MCV MCH 26 L MCHC RDW 20.9 H Plt Count Lymph % (Auto) [place] % (Auto) Lymph # [place] # Baso # Seg Neutrophils % Seg Neuts % (Manual) Lymphocytes % (Manual) Monocytes % (Manual) Eosinophils % (Manual) Basophils % (Manual) Nucleated RBC % Seg Neutrophils # Seg Neutrophils # Man Lymphocytes # (Manual) Monocytes # (Manual) Eosinophils # (Manual) Basophils # (Manual) PT INR Fibrinogen dRVVT Confirm Interp Factor V Activity POC ABG pH POC ABG pCO2 POC ABG pO2 ABG pO2 ABG HCO3 ABG Base Excess ABG Hemoglobin Oxyhemoglobin Sodium Potassium Chloride 111.0 H Carbon Dioxide 16 L BUN 129 H Creatinine 3.7 H Glucose 115 H POC Glucose Lactic Acid Calcium 8.2 L Phosphorus Magnesium Direct Bilirubin AST ALT Alkaline Phosphatase Lactate Dehydrogenase Troponin T C-Reactive Protein Total Protein Albumin Prealbumin Triglycerides 243 H Cholesterol LDL Cholesterol Direct HDL Cholesterol PTH Intact Urine pH Urine WBC (Auto) Urine Creatinine Urine Total Protein Fluid Total Protein Vancomycin Trough Rheumatoid Factor Complement C4 Miscellaneous Test Crossmatch 09/20/16 09/20/16 09/20/16 05:40 11:52 16:50 WBC RBC Hgb Hct MCV MCH MCHC RDW Plt Count Lymph % (Auto) [place] % (Auto) Lymph # [place] # Baso # Seg Neutrophils % Seg Neuts % (Manual) Lymphocytes % (Manual) Monocytes % (Manual) Eosinophils % (Manual) Basophils % (Manual) Nucleated RBC % Seg Neutrophils # Seg Neutrophils # Man Lymphocytes # (Manual) Monocytes # (Manual) Eosinophils # (Manual) Basophils # (Manual) PT INR Fibrinogen dRVVT Confirm Interp Factor V Activity POC ABG pH POC ABG pCO2 POC ABG pO2 ABG pO2 ABG HCO3 ABG Base Excess ABG Hemoglobin Oxyhemoglobin Sodium Potassium Chloride Carbon Dioxide BUN Creatinine Glucose POC Glucose 131 H 183 H 236 H Lactic Acid Calcium Phosphorus Magnesium Direct Bilirubin AST ALT Alkaline Phosphatase Lactate Dehydrogenase Troponin T C-Reactive Protein Total Protein Albumin Prealbumin Triglycerides Cholesterol LDL Cholesterol Direct HDL Cholesterol PTH Intact Urine pH Urine WBC (Auto) Urine Creatinine Urine Total Protein Fluid Total Protein Vancomycin Trough Rheumatoid Factor Complement C4 Miscellaneous Test Crossmatch 09/20/16 09/21/16 09/21/16 23:51 03:30 04:44 WBC RBC Hgb Hct MCV MCH MCHC RDW Plt Count Lymph % (Auto) [place] % (Auto) Lymph # [place] # Baso # Seg Neutrophils % Seg Neuts % (Manual) Lymphocytes % (Manual) Monocytes % (Manual) Eosinophils % (Manual) Basophils % (Manual) Nucleated RBC % Seg Neutrophils # Seg Neutrophils # Man Lymphocytes # (Manual) Monocytes # (Manual) Eosinophils # (Manual) Basophils # (Manual) PT INR Fibrinogen dRVVT Confirm Interp Factor V Activity POC ABG pH POC ABG pCO2 POC ABG pO2 ABG pO2 ABG HCO3 ABG Base Excess ABG Hemoglobin Oxyhemoglobin Sodium Potassium Chloride Carbon Dioxide BUN Creatinine Glucose POC Glucose 114 H 141 H Lactic Acid Calcium Phosphorus Magnesium 2.70 H Direct Bilirubin AST ALT Alkaline Phosphatase Lactate Dehydrogenase Troponin T C-Reactive Protein Total Protein Albumin Prealbumin Triglycerides Cholesterol LDL Cholesterol Direct HDL Cholesterol PTH Intact Urine pH Urine WBC (Auto) Urine Creatinine Urine Total Protein Fluid Total Protein Vancomycin Trough Rheumatoid Factor Complement C4 Miscellaneous Test Crossmatch 09/21/16 09/21/16 09/21/16 07:45 07:45 10:01 WBC 13.8 H RBC 2.94 L Hgb 7.5 L Hct 23.5 L MCV MCH 26 L MCHC RDW 21.2 H Plt Count Lymph % (Auto) 6.9 L [place] % (Auto) 9.4 H Lymph # 0.9 L [place] # 1.3 H Baso # Seg Neutrophils % 83.2 H Seg Neuts % (Manual) Lymphocytes % (Manual) Monocytes % (Manual) Eosinophils % (Manual) Basophils % (Manual) Nucleated RBC % Seg Neutrophils # 11.5 H Seg Neutrophils # Man Lymphocytes # (Manual) Monocytes # (Manual) Eosinophils # (Manual) Basophils # (Manual) PT INR Fibrinogen dRVVT Confirm Interp Factor V Activity POC ABG pH 7.308 L POC ABG pCO2 31.9 L POC ABG pO2 148 H ABG pO2 ABG HCO3 ABG Base Excess ABG Hemoglobin Oxyhemoglobin Sodium 147 H Potassium Chloride 114.2 H Carbon Dioxide 15 L BUN 120 H Creatinine 3.9 H Glucose 156 H POC Glucose Lactic Acid Calcium 8.2 L Phosphorus Magnesium Direct Bilirubin AST ALT Alkaline Phosphatase Lactate Dehydrogenase Troponin T C-Reactive Protein Total Protein Albumin Prealbumin Triglycerides Cholesterol LDL Cholesterol Direct HDL Cholesterol PTH Intact Urine pH Urine WBC (Auto) Urine Creatinine Urine Total Protein Fluid Total Protein Vancomycin Trough Rheumatoid Factor Complement C4 Miscellaneous Test Crossmatch 09/21/16 09/21/16 09/21/16 12:00 12:03 13:00 WBC RBC Hgb Hct MCV MCH MCHC RDW Plt Count Lymph % (Auto) [place] % (Auto) Lymph # [place] # Baso # Seg Neutrophils % Seg Neuts % (Manual) Lymphocytes % (Manual) Monocytes % (Manual) Eosinophils % (Manual) Basophils % (Manual) Nucleated RBC % Seg Neutrophils # Seg Neutrophils # Man Lymphocytes # (Manual) Monocytes # (Manual) Eosinophils # (Manual) Basophils # (Manual) PT INR Fibrinogen dRVVT Confirm Interp Factor V Activity POC ABG pH POC ABG pCO2 POC ABG pO2 ABG pO2 ABG HCO3 ABG Base Excess ABG Hemoglobin Oxyhemoglobin Sodium Potassium Chloride Carbon Dioxide BUN Creatinine Glucose POC Glucose 163 H Lactic Acid Calcium Phosphorus Magnesium Direct Bilirubin AST ALT Alkaline Phosphatase Lactate Dehydrogenase Troponin T C-Reactive Protein Total Protein Albumin Prealbumin Triglycerides Cholesterol LDL Cholesterol Direct HDL Cholesterol PTH Intact Urine pH Urine WBC (Auto) Urine Creatinine 54.8 H Urine Total Protein Fluid Total Protein Vancomycin Trough 2.3 L Rheumatoid Factor Complement C4 Miscellaneous Test Crossmatch 09/21/16 09/21/16 09/22/16 16:51 23:17 06:27 WBC RBC Hgb Hct MCV MCH MCHC RDW Plt Count Lymph % (Auto) [place] % (Auto) Lymph # [place] # Baso # Seg Neutrophils % Seg Neuts % (Manual) Lymphocytes % (Manual) Monocytes % (Manual) Eosinophils % (Manual) Basophils % (Manual) Nucleated RBC % Seg Neutrophils # Seg Neutrophils # Man Lymphocytes # (Manual) Monocytes # (Manual) Eosinophils # (Manual) Basophils # (Manual) PT INR Fibrinogen dRVVT Confirm Interp Factor V Activity POC ABG pH POC ABG pCO2 POC ABG pO2 ABG pO2 ABG HCO3 ABG Base Excess ABG Hemoglobin Oxyhemoglobin Sodium Potassium Chloride Carbon Dioxide BUN Creatinine Glucose POC Glucose 206 H 114 H 115 H Lactic Acid Calcium Phosphorus Magnesium Direct Bilirubin AST ALT Alkaline Phosphatase Lactate Dehydrogenase Troponin T C-Reactive Protein Total Protein Albumin Prealbumin Triglycerides Cholesterol LDL Cholesterol Direct HDL Cholesterol PTH Intact Urine pH Urine WBC (Auto) Urine Creatinine Urine Total Protein Fluid Total Protein Vancomycin Trough Rheumatoid Factor Complement C4 Miscellaneous Test Crossmatch 09/22/16 09/22/16 09/22/16 07:50 07:50 12:00 WBC 17.8 H RBC 3.04 L Hgb 8.0 L Hct 24.7 L MCV MCH 26 L MCHC RDW 21.6 H Plt Count Lymph % (Auto) [place] % (Auto) Lymph # [place] # Baso # Seg Neutrophils % Seg Neuts % (Manual) Lymphocytes % (Manual) Monocytes % (Manual) Eosinophils % (Manual) Basophils % (Manual) Nucleated RBC % Seg Neutrophils # Seg Neutrophils # Man Lymphocytes # (Manual) Monocytes # (Manual) Eosinophils # (Manual) Basophils # (Manual) PT INR Fibrinogen dRVVT Confirm Interp Factor V Activity POC ABG pH POC ABG pCO2 POC ABG pO2 ABG pO2 ABG HCO3 ABG Base Excess ABG Hemoglobin Oxyhemoglobin Sodium 150 H Potassium Chloride 118.2 H Carbon Dioxide 14 L BUN 111 H Creatinine 3.7 H Glucose 157 H POC Glucose 183 H Lactic Acid Calcium Phosphorus Magnesium Direct Bilirubin AST ALT Alkaline Phosphatase Lactate Dehydrogenase Troponin T C-Reactive Protein Total Protein Albumin Prealbumin Triglycerides Cholesterol LDL Cholesterol Direct HDL Cholesterol PTH Intact Urine pH Urine WBC (Auto) Urine Creatinine Urine Total Protein Fluid Total Protein Vancomycin Trough Rheumatoid Factor Complement C4 Miscellaneous Test Crossmatch 09/22/16 09/22/16 09/23/16 17:29 23:10 05:00 WBC 19.2 H RBC 3.13 L Hgb 8.0 L Hct 25.2 L MCV MCH 26 L MCHC RDW 22.1 H Plt Count Lymph % (Auto) [place] % (Auto) Lymph # [place] # Baso # Seg Neutrophils % Seg Neuts % (Manual) 92.0 H Lymphocytes % (Manual) 3.0 L Monocytes % (Manual) Eosinophils % (Manual) Basophils % (Manual) Nucleated RBC % Seg Neutrophils # Seg Neutrophils # Man 17.7 H Lymphocytes # (Manual) 0.6 L Monocytes # (Manual) Eosinophils # (Manual) Basophils # (Manual) PT INR Fibrinogen dRVVT Confirm Interp Factor V Activity POC ABG pH POC ABG pCO2 POC ABG pO2 ABG pO2 ABG HCO3 ABG Base Excess ABG Hemoglobin Oxyhemoglobin Sodium Potassium Chloride Carbon Dioxide BUN Creatinine Glucose POC Glucose 197 H 169 H Lactic Acid Calcium Phosphorus Magnesium Direct Bilirubin AST ALT Alkaline Phosphatase Lactate Dehydrogenase Troponin T C-Reactive Protein Total Protein Albumin Prealbumin Triglycerides Cholesterol LDL Cholesterol Direct HDL Cholesterol PTH Intact Urine pH Urine WBC (Auto) Urine Creatinine Urine Total Protein Fluid Total Protein Vancomycin Trough Rheumatoid Factor Complement C4 Miscellaneous Test Crossmatch 09/23/16 09/23/16 09/23/16 05:00 05:00 05:10 WBC RBC Hgb Hct MCV MCH MCHC RDW Plt Count Lymph % (Auto) [place] % (Auto) Lymph # [place] # Baso # Seg Neutrophils % Seg Neuts % (Manual) Lymphocytes % (Manual) Monocytes % (Manual) Eosinophils % (Manual) Basophils % (Manual) Nucleated RBC % Seg Neutrophils # Seg Neutrophils # Man Lymphocytes # (Manual) Monocytes # (Manual) Eosinophils # (Manual) Basophils # (Manual) PT INR Fibrinogen dRVVT Confirm Interp Factor V Activity POC ABG pH POC ABG pCO2 POC ABG pO2 ABG pO2 ABG HCO3 ABG Base Excess ABG Hemoglobin Oxyhemoglobin Sodium 147 H Potassium 3.2 L Chloride 115.7 H Carbon Dioxide 13 L BUN 111 H Creatinine 3.8 H Glucose 194 H POC Glucose 188 H Lactic Acid Calcium 7.3 L D Phosphorus Magnesium Direct Bilirubin AST ALT Alkaline Phosphatase Lactate Dehydrogenase Troponin T C-Reactive Protein 3.20 H Total Protein Albumin Prealbumin Triglycerides Cholesterol LDL Cholesterol Direct HDL Cholesterol PTH Intact Urine pH Urine WBC (Auto) Urine Creatinine Urine Total Protein Fluid Total Protein Vancomycin Trough Rheumatoid Factor Complement C4 Miscellaneous Test Crossmatch 09/23/16 09/23/16 09/23/16 11:37 12:29 18:01 WBC RBC Hgb Hct MCV MCH MCHC RDW Plt Count Lymph % (Auto) [place] % (Auto) Lymph # [place] # Baso # Seg Neutrophils % Seg Neuts % (Manual) Lymphocytes % (Manual) Monocytes % (Manual) Eosinophils % (Manual) Basophils % (Manual) Nucleated RBC % Seg Neutrophils # Seg Neutrophils # Man Lymphocytes # (Manual) Monocytes # (Manual) Eosinophils # (Manual) Basophils # (Manual) PT INR Fibrinogen dRVVT Confirm Interp Factor V Activity POC ABG pH POC ABG pCO2 18.9 L POC ABG pO2 143 H ABG pO2 ABG HCO3 ABG Base Excess ABG Hemoglobin Oxyhemoglobin Sodium Potassium Chloride Carbon Dioxide BUN Creatinine Glucose POC Glucose 153 H 108 H Lactic Acid Calcium Phosphorus Magnesium Direct Bilirubin AST ALT Alkaline Phosphatase Lactate Dehydrogenase Troponin T C-Reactive Protein Total Protein Albumin Prealbumin Triglycerides Cholesterol LDL Cholesterol Direct HDL Cholesterol PTH Intact Urine pH Urine WBC (Auto) Urine Creatinine Urine Total Protein Fluid Total Protein Vancomycin Trough Rheumatoid Factor Complement C4 Miscellaneous Test Crossmatch 09/23/16 09/23/16 09/24/16 21:19 23:43 05:16 WBC RBC Hgb Hct MCV MCH MCHC RDW Plt Count Lymph % (Auto) [place] % (Auto) Lymph # [place] # Baso # Seg Neutrophils % Seg Neuts % (Manual) Lymphocytes % (Manual) Monocytes % (Manual) Eosinophils % (Manual) Basophils % (Manual) Nucleated RBC % Seg Neutrophils # Seg Neutrophils # Man Lymphocytes # (Manual) Monocytes # (Manual) Eosinophils # (Manual) Basophils # (Manual) PT INR Fibrinogen dRVVT Confirm Interp Factor V Activity POC ABG pH POC ABG pCO2 17.3 L POC ABG pO2 112 H ABG pO2 ABG HCO3 ABG Base Excess ABG Hemoglobin Oxyhemoglobin Sodium Potassium Chloride Carbon Dioxide BUN Creatinine Glucose POC Glucose 143 H 164 H Lactic Acid Calcium Phosphorus Magnesium Direct Bilirubin AST ALT Alkaline Phosphatase Lactate Dehydrogenase Troponin T C-Reactive Protein Total Protein Albumin Prealbumin Triglycerides Cholesterol LDL Cholesterol Direct HDL Cholesterol PTH Intact Urine pH Urine WBC (Auto) Urine Creatinine Urine Total Protein Fluid Total Protein Vancomycin Trough Rheumatoid Factor Complement C4 Miscellaneous Test Crossmatch 09/24/16 09/24/16 09/24/16 05:21 11:58 17:06 WBC RBC Hgb Hct MCV MCH MCHC RDW Plt Count Lymph % (Auto) [place] % (Auto) Lymph # [place] # Baso # Seg Neutrophils % Seg Neuts % (Manual) Lymphocytes % (Manual) Monocytes % (Manual) Eosinophils % (Manual) Basophils % (Manual) Nucleated RBC % Seg Neutrophils # Seg Neutrophils # Man Lymphocytes # (Manual) Monocytes # (Manual) Eosinophils # (Manual) Basophils # (Manual) PT INR Fibrinogen dRVVT Confirm Interp Factor V Activity POC ABG pH POC ABG pCO2 POC ABG pO2 ABG pO2 ABG HCO3 ABG Base Excess ABG Hemoglobin Oxyhemoglobin Sodium Potassium Chloride Carbon Dioxide 10 L BUN 103 H Creatinine 4.3 H Glucose 163 H POC Glucose 173 H 167 H Lactic Acid Calcium 6.5 L Phosphorus Magnesium Direct Bilirubin AST ALT Alkaline Phosphatase Lactate Dehydrogenase Troponin T C-Reactive Protein Total Protein Albumin Prealbumin Triglycerides Cholesterol LDL Cholesterol Direct HDL Cholesterol PTH Intact Urine pH Urine WBC (Auto) Urine Creatinine Urine Total Protein Fluid Total Protein Vancomycin Trough Rheumatoid Factor Complement C4 Miscellaneous Test Crossmatch 09/24/16 09/24/16 09/24/16 20:15 21:02 23:48 WBC RBC Hgb Hct MCV MCH MCHC RDW Plt Count Lymph % (Auto) [place] % (Auto) Lymph # [place] # Baso # Seg Neutrophils % Seg Neuts % (Manual) Lymphocytes % (Manual) Monocytes % (Manual) Eosinophils % (Manual) Basophils % (Manual) Nucleated RBC % Seg Neutrophils # Seg Neutrophils # Man Lymphocytes # (Manual) Monocytes # (Manual) Eosinophils # (Manual) Basophils # (Manual) PT INR Fibrinogen dRVVT Confirm Interp Factor V Activity POC ABG pH 7.288 L POC ABG pCO2 30.2 L 21.5 L POC ABG pO2 32 L 39 L ABG pO2 ABG HCO3 ABG Base Excess ABG Hemoglobin Oxyhemoglobin Sodium Potassium Chloride Carbon Dioxide BUN Creatinine Glucose POC Glucose 109 H Lactic Acid Calcium Phosphorus Magnesium Direct Bilirubin AST ALT Alkaline Phosphatase Lactate Dehydrogenase Troponin T C-Reactive Protein Total Protein Albumin Prealbumin Triglycerides Cholesterol LDL Cholesterol Direct HDL Cholesterol PTH Intact Urine pH Urine WBC (Auto) Urine Creatinine Urine Total Protein Fluid Total Protein Vancomycin Trough Rheumatoid Factor Complement C4 Miscellaneous Test Crossmatch 09/25/16 09/25/16 09/25/16 04:20 04:20 04:20 WBC RBC 2.58 L Hgb 7.0 L Hct 21.0 L MCV MCH 27 L MCHC RDW 23.8 H Plt Count Lymph % (Auto) [place] % (Auto) Lymph # [place] # Baso # Seg Neutrophils % Seg Neuts % (Manual) Lymphocytes % (Manual) 12.0 L Monocytes % (Manual) Eosinophils % (Manual) 7.0 H Basophils % (Manual) 2.0 H Nucleated RBC % Seg Neutrophils # Seg Neutrophils # Man Lymphocytes # (Manual) 0.9 L Monocytes # (Manual) Eosinophils # (Manual) 0.5 H Basophils # (Manual) PT INR Fibrinogen dRVVT Confirm Interp Factor V Activity POC ABG pH POC ABG pCO2 POC ABG pO2 ABG pO2 ABG HCO3 ABG Base Excess ABG Hemoglobin Oxyhemoglobin Sodium Potassium Chloride Carbon Dioxide 15 L BUN 72 H Creatinine 3.8 H Glucose POC Glucose Lactic Acid Calcium 6.0 L Phosphorus 4.60 H Magnesium 1.60 L Direct Bilirubin AST ALT Alkaline Phosphatase Lactate Dehydrogenase Troponin T C-Reactive Protein Total Protein Albumin Prealbumin Triglycerides Cholesterol LDL Cholesterol Direct HDL Cholesterol PTH Intact Urine pH Urine WBC (Auto) Urine Creatinine Urine Total Protein Fluid Total Protein Vancomycin Trough Rheumatoid Factor Complement C4 Miscellaneous Test Crossmatch 09/25/16 09/25/16 09/25/16 04:57 08:02 10:30 WBC RBC Hgb Hct MCV MCH MCHC RDW Plt Count Lymph % (Auto) [place] % (Auto) Lymph # [place] # Baso # Seg Neutrophils % Seg Neuts % (Manual) Lymphocytes % (Manual) Monocytes % (Manual) Eosinophils % (Manual) Basophils % (Manual) Nucleated RBC % Seg Neutrophils # Seg Neutrophils # Man Lymphocytes # (Manual) Monocytes # (Manual) Eosinophils # (Manual) Basophils # (Manual) PT INR Fibrinogen dRVVT Confirm Interp Factor V Activity POC ABG pH POC ABG pCO2 24.7 L POC ABG pO2 152 H ABG pO2 ABG HCO3 ABG Base Excess ABG Hemoglobin Oxyhemoglobin Sodium Potassium Chloride Carbon Dioxide BUN Creatinine Glucose POC Glucose 113 H Lactic Acid Calcium Phosphorus Magnesium Direct Bilirubin AST ALT Alkaline Phosphatase Lactate Dehydrogenase Troponin T C-Reactive Protein Total Protein Albumin Prealbumin Triglycerides Cholesterol LDL Cholesterol Direct HDL Cholesterol PTH Intact Urine pH Urine WBC (Auto) Urine Creatinine Urine Total Protein Fluid Total Protein Vancomycin Trough Rheumatoid Factor Complement C4 Miscellaneous Test Crossmatch See Detail 09/25/16 09/25/16 09/25/16 12:05 17:44 23:47 WBC RBC Hgb Hct MCV MCH MCHC RDW Plt Count Lymph % (Auto) [place] % (Auto) Lymph # [place] # Baso # Seg Neutrophils % Seg Neuts % (Manual) Lymphocytes % (Manual) Monocytes % (Manual) Eosinophils % (Manual) Basophils % (Manual) Nucleated RBC % Seg Neutrophils # Seg Neutrophils # Man Lymphocytes # (Manual) Monocytes # (Manual) Eosinophils # (Manual) Basophils # (Manual) PT INR Fibrinogen dRVVT Confirm Interp Factor V Activity POC ABG pH POC ABG pCO2 POC ABG pO2 ABG pO2 ABG HCO3 ABG Base Excess ABG Hemoglobin Oxyhemoglobin Sodium Potassium Chloride Carbon Dioxide BUN Creatinine Glucose POC Glucose 117 H 119 H 150 H Lactic Acid Calcium Phosphorus Magnesium Direct Bilirubin AST ALT Alkaline Phosphatase Lactate Dehydrogenase Troponin T C-Reactive Protein Total Protein Albumin Prealbumin Triglycerides Cholesterol LDL Cholesterol Direct HDL Cholesterol PTH Intact Urine pH Urine WBC (Auto) Urine Creatinine Urine Total Protein Fluid Total Protein Vancomycin Trough Rheumatoid Factor Complement C4 Miscellaneous Test Crossmatch 09/26/16 09/26/16 09/26/16 04:25 04:25 04:25 WBC RBC 2.65 L Hgb 7.4 L Hct 21.6 L MCV MCH MCHC RDW 22.5 H Plt Count Lymph % (Auto) [place] % (Auto) Lymph # [place] # Baso # Seg Neutrophils % Seg Neuts % (Manual) Lymphocytes % (Manual) 6.0 L Monocytes % (Manual) Eosinophils % (Manual) 11.0 H Basophils % (Manual) Nucleated RBC % Seg Neutrophils # Seg Neutrophils # Man Lymphocytes # (Manual) 0.4 L Monocytes # (Manual) Eosinophils # (Manual) 0.6 H Basophils # (Manual) PT INR Fibrinogen dRVVT Confirm Interp Factor V Activity POC ABG pH POC ABG pCO2 POC ABG pO2 ABG pO2 ABG HCO3 ABG Base Excess ABG Hemoglobin Oxyhemoglobin Sodium Potassium Chloride 97.0 L Carbon Dioxide 19 L BUN 43 H Creatinine 2.6 H Glucose 130 H POC Glucose Lactic Acid 4.40 H* Calcium 6.7 L Phosphorus Magnesium Direct Bilirubin AST ALT Alkaline Phosphatase Lactate Dehydrogenase Troponin T C-Reactive Protein Total Protein Albumin Prealbumin Triglycerides Cholesterol LDL Cholesterol Direct HDL Cholesterol PTH Intact Urine pH Urine WBC (Auto) Urine Creatinine Urine Total Protein Fluid Total Protein Vancomycin Trough Rheumatoid Factor Complement C4 Miscellaneous Test Crossmatch 09/26/16 09/26/16 09/26/16 05:20 11:44 12:12 WBC RBC Hgb Hct MCV MCH MCHC RDW Plt Count Lymph % (Auto) [place] % (Auto) Lymph # [place] # Baso # Seg Neutrophils % Seg Neuts % (Manual) Lymphocytes % (Manual) Monocytes % (Manual) Eosinophils % (Manual) Basophils % (Manual) Nucleated RBC % Seg Neutrophils # Seg Neutrophils # Man Lymphocytes # (Manual) Monocytes # (Manual) Eosinophils # (Manual) Basophils # (Manual) PT INR Fibrinogen dRVVT Confirm Interp Factor V Activity POC ABG pH POC ABG pCO2 27.0 L POC ABG pO2 69 L ABG pO2 ABG HCO3 ABG Base Excess ABG Hemoglobin Oxyhemoglobin Sodium Potassium Chloride Carbon Dioxide BUN Creatinine Glucose POC Glucose 121 H 128 H Lactic Acid Calcium Phosphorus Magnesium Direct Bilirubin AST ALT Alkaline Phosphatase Lactate Dehydrogenase Troponin T C-Reactive Protein Total Protein Albumin Prealbumin Triglycerides Cholesterol LDL Cholesterol Direct HDL Cholesterol PTH Intact Urine pH Urine WBC (Auto) Urine Creatinine Urine Total Protein Fluid Total Protein Vancomycin Trough Rheumatoid Factor Complement C4 Miscellaneous Test Crossmatch 09/26/16 09/26/16 09/27/16 18:31 23:40 08:20 WBC RBC Hgb Hct MCV MCH MCHC RDW Plt Count Lymph % (Auto) [place] % (Auto) Lymph # [place] # Baso # Seg Neutrophils % Seg Neuts % (Manual) Lymphocytes % (Manual) Monocytes % (Manual) Eosinophils % (Manual) Basophils % (Manual) Nucleated RBC % Seg Neutrophils # Seg Neutrophils # Man Lymphocytes # (Manual) Monocytes # (Manual) Eosinophils # (Manual) Basophils # (Manual) PT INR Fibrinogen dRVVT Confirm Interp Factor V Activity POC ABG pH POC ABG pCO2 POC ABG pO2 ABG pO2 ABG HCO3 ABG Base Excess ABG Hemoglobin Oxyhemoglobin Sodium Potassium Chloride Carbon Dioxide BUN Creatinine Glucose POC Glucose 120 H 133 H Lactic Acid 4.10 H* Calcium Phosphorus Magnesium Direct Bilirubin AST ALT Alkaline Phosphatase Lactate Dehydrogenase Troponin T C-Reactive Protein Total Protein Albumin Prealbumin Triglycerides Cholesterol LDL Cholesterol Direct HDL Cholesterol PTH Intact Urine pH Urine WBC (Auto) Urine Creatinine Urine Total Protein Fluid Total Protein Vancomycin Trough Rheumatoid Factor Complement C4 Miscellaneous Test Crossmatch 09/27/16 09/27/16 09/27/16 11:23 15:00 18:15 WBC RBC Hgb Hct MCV MCH MCHC RDW Plt Count Lymph % (Auto) [place] % (Auto) Lymph # [place] # Baso # Seg Neutrophils % Seg Neuts % (Manual) Lymphocytes % (Manual) Monocytes % (Manual) Eosinophils % (Manual) Basophils % (Manual) Nucleated RBC % Seg Neutrophils # Seg Neutrophils # Man Lymphocytes # (Manual) Monocytes # (Manual) Eosinophils # (Manual) Basophils # (Manual) PT INR Fibrinogen dRVVT Confirm Interp Factor V Activity POC ABG pH 7.459 H POC ABG pCO2 27.1 L POC ABG pO2 140 H ABG pO2 ABG HCO3 ABG Base Excess ABG Hemoglobin Oxyhemoglobin Sodium Potassium Chloride Carbon Dioxide BUN Creatinine Glucose POC Glucose 114 H 127 H Lactic Acid Calcium Phosphorus Magnesium Direct Bilirubin AST ALT Alkaline Phosphatase Lactate Dehydrogenase Troponin T C-Reactive Protein Total Protein Albumin Prealbumin Triglycerides Cholesterol LDL Cholesterol Direct HDL Cholesterol PTH Intact Urine pH Urine WBC (Auto) Urine Creatinine Urine Total Protein Fluid Total Protein Vancomycin Trough Rheumatoid Factor Complement C4 Miscellaneous Test Crossmatch 09/27/16 09/27/16 09/28/16 Unknown Unknown 03:45 WBC RBC 2.49 L Hgb 6.8 L Hct 20.7 L MCV MCH 27 L MCHC RDW 22.1 H Plt Count Lymph % (Auto) [place] % (Auto) Lymph # [place] # Baso # Seg Neutrophils % Seg Neuts % (Manual) 32.0 L Lymphocytes % (Manual) 12.0 L Monocytes % (Manual) 11.0 H Eosinophils % (Manual) 10.0 H Basophils % (Manual) Nucleated RBC % Seg Neutrophils # Seg Neutrophils # Man Lymphocytes # (Manual) 1.0 L Monocytes # (Manual) 0.9 H Eosinophils # (Manual) 0.8 H Basophils # (Manual) PT INR Fibrinogen dRVVT Confirm Interp Factor V Activity POC ABG pH POC ABG pCO2 POC ABG pO2 ABG pO2 ABG HCO3 ABG Base Excess ABG Hemoglobin Oxyhemoglobin Sodium 135 L 135 L Potassium 3.5 L Chloride 93.6 L 94.4 L Carbon Dioxide 17 L 21 L BUN 45 H 28 H Creatinine 3.3 H 2.5 H Glucose 106 H POC Glucose Lactic Acid Calcium 7.3 L 7.1 L Phosphorus Magnesium Direct Bilirubin AST ALT Alkaline Phosphatase Lactate Dehydrogenase Troponin T C-Reactive Protein Total Protein Albumin Prealbumin Triglycerides Cholesterol LDL Cholesterol Direct HDL Cholesterol PTH Intact Urine pH Urine WBC (Auto) Urine Creatinine Urine Total Protein Fluid Total Protein Vancomycin Trough Rheumatoid Factor Complement C4 Miscellaneous Test Crossmatch 09/28/16 09/28/16 09/28/16 03:45 07:25 11:58 WBC 13.3 H RBC 3.01 L Hgb 8.4 L Hct 25.0 L MCV MCH MCHC RDW 20.5 H Plt Count 128 L Lymph % (Auto) [place] % (Auto) Lymph # [place] # Baso # Seg Neutrophils % Seg Neuts % (Manual) Lymphocytes % (Manual) 7.0 L Monocytes % (Manual) Eosinophils % (Manual) 6.0 H Basophils % (Manual) Nucleated RBC % Seg Neutrophils # Seg Neutrophils # Man Lymphocytes # (Manual) 0.9 L Monocytes # (Manual) Eosinophils # (Manual) 0.8 H Basophils # (Manual) PT INR Fibrinogen dRVVT Confirm Interp Factor V Activity POC ABG pH POC ABG pCO2 POC ABG pO2 ABG pO2 ABG HCO3 ABG Base Excess ABG Hemoglobin Oxyhemoglobin Sodium Potassium Chloride Carbon Dioxide BUN Creatinine Glucose POC Glucose 121 H Lactic Acid 4.50 H* Calcium Phosphorus Magnesium Direct Bilirubin AST ALT Alkaline Phosphatase Lactate Dehydrogenase Troponin T C-Reactive Protein Total Protein Albumin Prealbumin Triglycerides Cholesterol LDL Cholesterol Direct HDL Cholesterol PTH Intact Urine pH Urine WBC (Auto) Urine Creatinine Urine Total Protein Fluid Total Protein Vancomycin Trough Rheumatoid Factor Complement C4 Miscellaneous Test Crossmatch 09/29/16 09/29/16 09/29/16 06:45 06:45 06:45 WBC 14.9 H RBC 2.74 L Hgb 7.6 L Hct 23.2 L MCV MCH MCHC RDW 20.5 H Plt Count 81 L Lymph % (Auto) [place] % (Auto) Lymph # [place] # Baso # Seg Neutrophils % Seg Neuts % (Manual) 81.0 H Lymphocytes % (Manual) 4.0 L Monocytes % (Manual) Eosinophils % (Manual) Basophils % (Manual) Nucleated RBC % Seg Neutrophils # Seg Neutrophils # Man 12.1 H Lymphocytes # (Manual) 0.6 L Monocytes # (Manual) Eosinophils # (Manual) Basophils # (Manual) PT INR Fibrinogen dRVVT Confirm Interp Factor V Activity POC ABG pH POC ABG pCO2 POC ABG pO2 ABG pO2 ABG HCO3 ABG Base Excess ABG Hemoglobin Oxyhemoglobin Sodium 133 L Potassium 3.4 L Chloride 92.5 L Carbon Dioxide 21 L BUN 33 H Creatinine 3.0 H Glucose POC Glucose Lactic Acid Calcium 6.6 L Phosphorus Magnesium 1.40 L Direct Bilirubin 0.9 H AST ALT Alkaline Phosphatase Lactate Dehydrogenase Troponin T C-Reactive Protein Total Protein 4.3 L Albumin 1.3 L Prealbumin Triglycerides Cholesterol LDL Cholesterol Direct HDL Cholesterol PTH Intact Urine pH Urine WBC (Auto) Urine Creatinine Urine Total Protein Fluid Total Protein Vancomycin Trough Rheumatoid Factor Complement C4 Miscellaneous Test Crossmatch 09/29/16 09/29/16 09/30/16 17:52 20:12 00:07 WBC RBC Hgb Hct MCV MCH MCHC RDW Plt Count Lymph % (Auto) [place] % (Auto) Lymph # [place] # Baso # Seg Neutrophils % Seg Neuts % (Manual) Lymphocytes % (Manual) Monocytes % (Manual) Eosinophils % (Manual) Basophils % (Manual) Nucleated RBC % Seg Neutrophils # Seg Neutrophils # Man Lymphocytes # (Manual) Monocytes # (Manual) Eosinophils # (Manual) Basophils # (Manual) PT INR Fibrinogen dRVVT Confirm Interp Factor V Activity POC ABG pH POC ABG pCO2 POC ABG pO2 ABG pO2 ABG HCO3 ABG Base Excess ABG Hemoglobin Oxyhemoglobin Sodium Potassium Chloride Carbon Dioxide BUN Creatinine Glucose POC Glucose 50 L 51 L Lactic Acid Calcium Phosphorus Magnesium Direct Bilirubin AST ALT Alkaline Phosphatase Lactate Dehydrogenase Troponin T 0.204 H* C-Reactive Protein Total Protein Albumin Prealbumin Triglycerides Cholesterol 31 L LDL Cholesterol Direct 4 L HDL Cholesterol 3 L PTH Intact Urine pH Urine WBC (Auto) Urine Creatinine Urine Total Protein Fluid Total Protein Vancomycin Trough Rheumatoid Factor Complement C4 Miscellaneous Test Crossmatch 09/30/16 09/30/16 09/30/16 01:30 05:15 06:10 WBC RBC Hgb Hct MCV MCH MCHC RDW Plt Count Lymph % (Auto) [place] % (Auto) Lymph # [place] # Baso # Seg Neutrophils % Seg Neuts % (Manual) Lymphocytes % (Manual) Monocytes % (Manual) Eosinophils % (Manual) Basophils % (Manual) Nucleated RBC % Seg Neutrophils # Seg Neutrophils # Man Lymphocytes # (Manual) Monocytes # (Manual) Eosinophils # (Manual) Basophils # (Manual) PT INR Fibrinogen dRVVT Confirm Interp Factor V Activity POC ABG pH POC ABG pCO2 POC ABG pO2 ABG pO2 ABG HCO3 ABG Base Excess ABG Hemoglobin Oxyhemoglobin Sodium 133 L Potassium 3.2 L Chloride 93.2 L Carbon Dioxide 19 L BUN 36 H Creatinine 3.2 H Glucose 104 H POC Glucose 167 H 146 H Lactic Acid Calcium 6.4 L Phosphorus Magnesium 1.60 L Direct Bilirubin AST ALT Alkaline Phosphatase Lactate Dehydrogenase Troponin T C-Reactive Protein Total Protein Albumin Prealbumin Triglycerides Cholesterol LDL Cholesterol Direct HDL Cholesterol PTH Intact Urine pH Urine WBC (Auto) Urine Creatinine Urine Total Protein Fluid Total Protein Vancomycin Trough Rheumatoid Factor Complement C4 Miscellaneous Test Crossmatch 09/30/16 09/30/16 09/30/16 11:26 13:39 18:38 WBC RBC Hgb Hct MCV MCH MCHC RDW Plt Count Lymph % (Auto) [place] % (Auto) Lymph # [place] # Baso # Seg Neutrophils % Seg Neuts % (Manual) Lymphocytes % (Manual) Monocytes % (Manual) Eosinophils % (Manual) Basophils % (Manual) Nucleated RBC % Seg Neutrophils # Seg Neutrophils # Man Lymphocytes # (Manual) Monocytes # (Manual) Eosinophils # (Manual) Basophils # (Manual) PT INR Fibrinogen dRVVT Confirm Interp Factor V Activity POC ABG pH 7.479 H POC ABG pCO2 29.8 L POC ABG pO2 117 H ABG pO2 ABG HCO3 ABG Base Excess ABG Hemoglobin Oxyhemoglobin Sodium Potassium Chloride Carbon Dioxide BUN Creatinine Glucose POC Glucose 140 H 122 H Lactic Acid Calcium Phosphorus Magnesium Direct Bilirubin AST ALT Alkaline Phosphatase Lactate Dehydrogenase Troponin T C-Reactive Protein Total Protein Albumin Prealbumin Triglycerides Cholesterol LDL Cholesterol Direct HDL Cholesterol PTH Intact Urine pH Urine WBC (Auto) Urine Creatinine Urine Total Protein Fluid Total Protein Vancomycin Trough Rheumatoid Factor Complement C4 Miscellaneous Test Crossmatch 10/01/16 10/01/16 10/01/16 06:00 06:00 12:37 WBC 12.6 H RBC 2.75 L Hgb 7.3 L Hct 23.3 L MCV MCH 27 L MCHC RDW 20.6 H Plt Count 72 L Lymph % (Auto) [place] % (Auto) Lymph # [place] # Baso # Seg Neutrophils % Seg Neuts % (Manual) 31.0 L Lymphocytes % (Manual) 8.0 L Monocytes % (Manual) Eosinophils % (Manual) Basophils % (Manual) Nucleated RBC % 3.0 H Seg Neutrophils # Seg Neutrophils # Man Lymphocytes # (Manual) 1.0 L Monocytes # (Manual) Eosinophils # (Manual) Basophils # (Manual) PT INR Fibrinogen dRVVT Confirm Interp Factor V Activity POC ABG pH POC ABG pCO2 POC ABG pO2 ABG pO2 ABG HCO3 ABG Base Excess ABG Hemoglobin Oxyhemoglobin Sodium 127 L Potassium Chloride 86.8 L Carbon Dioxide 20 L BUN 42 H Creatinine 3.5 H Glucose POC Glucose 65 L Lactic Acid Calcium 7.0 L Phosphorus Magnesium Direct Bilirubin AST ALT Alkaline Phosphatase Lactate Dehydrogenase Troponin T C-Reactive Protein Total Protein Albumin Prealbumin Triglycerides Cholesterol LDL Cholesterol Direct HDL Cholesterol PTH Intact Urine pH Urine WBC (Auto) Urine Creatinine Urine Total Protein Fluid Total Protein Vancomycin Trough Rheumatoid Factor Complement C4 Miscellaneous Test Crossmatch 10/01/16 10/01/16 10/02/16 17:39 23:32 00:59 WBC RBC Hgb Hct MCV MCH MCHC RDW Plt Count Lymph % (Auto) [place] % (Auto) Lymph # [place] # Baso # Seg Neutrophils % Seg Neuts % (Manual) Lymphocytes % (Manual) Monocytes % (Manual) Eosinophils % (Manual) Basophils % (Manual) Nucleated RBC % Seg Neutrophils # Seg Neutrophils # Man Lymphocytes # (Manual) Monocytes # (Manual) Eosinophils # (Manual) Basophils # (Manual) PT INR Fibrinogen dRVVT Confirm Interp Factor V Activity POC ABG pH POC ABG pCO2 POC ABG pO2 ABG pO2 ABG HCO3 ABG Base Excess ABG Hemoglobin Oxyhemoglobin Sodium Potassium Chloride Carbon Dioxide BUN Creatinine Glucose POC Glucose 107 H 52 L 145 H Lactic Acid Calcium Phosphorus Magnesium Direct Bilirubin AST ALT Alkaline Phosphatase Lactate Dehydrogenase Troponin T C-Reactive Protein Total Protein Albumin Prealbumin Triglycerides Cholesterol LDL Cholesterol Direct HDL Cholesterol PTH Intact Urine pH Urine WBC (Auto) Urine Creatinine Urine Total Protein Fluid Total Protein Vancomycin Trough Rheumatoid Factor Complement C4 Miscellaneous Test Crossmatch 10/02/16 10/02/16 10/02/16 10:30 10:50 10:50 WBC 14.7 H RBC 2.76 L Hgb 7.4 L Hct 23.6 L MCV MCH 27 L MCHC RDW 20.2 H Plt Count 79 L Lymph % (Auto) [place] % (Auto) Lymph # [place] # Baso # Seg Neutrophils % Seg Neuts % (Manual) 86.0 H Lymphocytes % (Manual) 6.0 L Monocytes % (Manual) Eosinophils % (Manual) Basophils % (Manual) Nucleated RBC % Seg Neutrophils # Seg Neutrophils # Man 12.6 H Lymphocytes # (Manual) 0.9 L Monocytes # (Manual) Eosinophils # (Manual) Basophils # (Manual) PT INR Fibrinogen dRVVT Confirm Interp Factor V Activity POC ABG pH 7.486 H POC ABG pCO2 30.1 L POC ABG pO2 108 H ABG pO2 ABG HCO3 ABG Base Excess ABG Hemoglobin Oxyhemoglobin Sodium 131 L Potassium 3.4 L Chloride 89.9 L Carbon Dioxide BUN 26 H Creatinine 2.6 H Glucose POC Glucose Lactic Acid Calcium 7.0 L Phosphorus Magnesium Direct Bilirubin AST ALT Alkaline Phosphatase Lactate Dehydrogenase Troponin T C-Reactive Protein Total Protein Albumin Prealbumin Triglycerides Cholesterol LDL Cholesterol Direct HDL Cholesterol PTH Intact Urine pH Urine WBC (Auto) Urine Creatinine Urine Total Protein Fluid Total Protein Vancomycin Trough Rheumatoid Factor Complement C4 Miscellaneous Test Crossmatch 10/02/16 10/03/16 10/03/16 23:45 00:45 05:10 WBC 12.9 H RBC 2.77 L Hgb 7.6 L Hct 23.7 L MCV MCH 27 L MCHC RDW 19.7 H Plt Count 89 L Lymph % (Auto) [place] % (Auto) Lymph # [place] # Baso # Seg Neutrophils % Seg Neuts % (Manual) Lymphocytes % (Manual) 8.0 L Monocytes % (Manual) Eosinophils % (Manual) Basophils % (Manual) Nucleated RBC % Seg Neutrophils # 11.9 H Seg Neutrophils # Man Lymphocytes # (Manual) 1.0 L Monocytes # (Manual) Eosinophils # (Manual) Basophils # (Manual) PT INR Fibrinogen dRVVT Confirm Interp Factor V Activity POC ABG pH POC ABG pCO2 POC ABG pO2 ABG pO2 ABG HCO3 ABG Base Excess ABG Hemoglobin Oxyhemoglobin Sodium Potassium Chloride Carbon Dioxide BUN Creatinine Glucose POC Glucose 55 L 199 H Lactic Acid Calcium Phosphorus Magnesium Direct Bilirubin AST ALT Alkaline Phosphatase Lactate Dehydrogenase Troponin T C-Reactive Protein Total Protein Albumin Prealbumin Triglycerides Cholesterol LDL Cholesterol Direct HDL Cholesterol PTH Intact Urine pH Urine WBC (Auto) Urine Creatinine Urine Total Protein Fluid Total Protein Vancomycin Trough Rheumatoid Factor Complement C4 Miscellaneous Test Crossmatch 10/03/16 10/03/16 10/03/16 05:10 12:14 13:18 WBC RBC Hgb Hct MCV MCH MCHC RDW Plt Count Lymph % (Auto) [place] % (Auto) Lymph # [place] # Baso # Seg Neutrophils % Seg Neuts % (Manual) Lymphocytes % (Manual) Monocytes % (Manual) Eosinophils % (Manual) Basophils % (Manual) Nucleated RBC % Seg Neutrophils # Seg Neutrophils # Man Lymphocytes # (Manual) Monocytes # (Manual) Eosinophils # (Manual) Basophils # (Manual) PT INR Fibrinogen dRVVT Confirm Interp Factor V Activity POC ABG pH POC ABG pCO2 POC ABG pO2 ABG pO2 ABG HCO3 ABG Base Excess ABG Hemoglobin Oxyhemoglobin Sodium 129 L Potassium 3.3 L Chloride 88.8 L Carbon Dioxide 20 L BUN 29 H Creatinine 2.8 H Glucose POC Glucose 68 L 127 H Lactic Acid Calcium 7.2 L Phosphorus Magnesium Direct Bilirubin AST ALT Alkaline Phosphatase Lactate Dehydrogenase Troponin T C-Reactive Protein Total Protein Albumin Prealbumin Triglycerides Cholesterol LDL Cholesterol Direct HDL Cholesterol PTH Intact Urine pH Urine WBC (Auto) Urine Creatinine Urine Total Protein Fluid Total Protein Vancomycin Trough Rheumatoid Factor Complement C4 Miscellaneous Test Crossmatch 10/03/16 10/03/16 10/03/16 14:42 18:21 19:09 WBC RBC Hgb Hct MCV MCH MCHC RDW Plt Count Lymph % (Auto) [place] % (Auto) Lymph # [place] # Baso # Seg Neutrophils % Seg Neuts % (Manual) Lymphocytes % (Manual) Monocytes % (Manual) Eosinophils % (Manual) Basophils % (Manual) Nucleated RBC % Seg Neutrophils # Seg Neutrophils # Man Lymphocytes # (Manual) Monocytes # (Manual) Eosinophils # (Manual) Basophils # (Manual) PT INR Fibrinogen dRVVT Confirm Interp Factor V Activity POC ABG pH 7.499 H POC ABG pCO2 28.4 L POC ABG pO2 44 L ABG pO2 ABG HCO3 ABG Base Excess ABG Hemoglobin Oxyhemoglobin Sodium Potassium Chloride Carbon Dioxide BUN Creatinine Glucose POC Glucose 64 L 205 H Lactic Acid Calcium Phosphorus Magnesium Direct Bilirubin AST ALT Alkaline Phosphatase Lactate Dehydrogenase Troponin T C-Reactive Protein Total Protein Albumin Prealbumin Triglycerides Cholesterol LDL Cholesterol Direct HDL Cholesterol PTH Intact Urine pH Urine WBC (Auto) Urine Creatinine Urine Total Protein Fluid Total Protein Vancomycin Trough Rheumatoid Factor Complement C4 Miscellaneous Test Crossmatch 10/03/16 10/04/16 10/04/16 23:33 04:18 06:30 WBC RBC 2.54 L Hgb 7.1 L Hct 21.7 L MCV MCH MCHC RDW 19.5 H Plt Count 76 L Lymph % (Auto) [place] % (Auto) Lymph # [place] # Baso # Seg Neutrophils % Seg Neuts % (Manual) 88.0 H Lymphocytes % (Manual) 6.0 L Monocytes % (Manual) Eosinophils % (Manual) Basophils % (Manual) Nucleated RBC % Seg Neutrophils # Seg Neutrophils # Man 8.8 H Lymphocytes # (Manual) 0.6 L Monocytes # (Manual) Eosinophils # (Manual) Basophils # (Manual) PT INR Fibrinogen dRVVT Confirm Interp Factor V Activity POC ABG pH 7.461 H POC ABG pCO2 33.6 L POC ABG pO2 211 H ABG pO2 ABG HCO3 ABG Base Excess ABG Hemoglobin Oxyhemoglobin Sodium Potassium Chloride Carbon Dioxide BUN Creatinine Glucose POC Glucose 136 H Lactic Acid Calcium Phosphorus Magnesium Direct Bilirubin AST ALT Alkaline Phosphatase Lactate Dehydrogenase Troponin T C-Reactive Protein Total Protein Albumin Prealbumin Triglycerides Cholesterol LDL Cholesterol Direct HDL Cholesterol PTH Intact Urine pH Urine WBC (Auto) Urine Creatinine Urine Total Protein Fluid Total Protein Vancomycin Trough Rheumatoid Factor Complement C4 Miscellaneous Test Crossmatch 10/04/16 10/04/16 10/04/16 06:30 11:45 17:54 WBC RBC Hgb Hct MCV MCH MCHC RDW Plt Count Lymph % (Auto) [place] % (Auto) Lymph # [place] # Baso # Seg Neutrophils % Seg Neuts % (Manual) Lymphocytes % (Manual) Monocytes % (Manual) Eosinophils % (Manual) Basophils % (Manual) Nucleated RBC % Seg Neutrophils # Seg Neutrophils # Man Lymphocytes # (Manual) Monocytes # (Manual) Eosinophils # (Manual) Basophils # (Manual) PT INR Fibrinogen dRVVT Confirm Interp Factor V Activity POC ABG pH POC ABG pCO2 POC ABG pO2 ABG pO2 ABG HCO3 ABG Base Excess ABG Hemoglobin Oxyhemoglobin Sodium 128 L Potassium Chloride 87.4 L Carbon Dioxide 20 L BUN 34 H Creatinine 2.9 H Glucose 127 H POC Glucose 158 H 160 H Lactic Acid Calcium 7.4 L Phosphorus Magnesium Direct Bilirubin AST ALT Alkaline Phosphatase Lactate Dehydrogenase Troponin T C-Reactive Protein Total Protein Albumin Prealbumin Triglycerides Cholesterol LDL Cholesterol Direct HDL Cholesterol PTH Intact Urine pH Urine WBC (Auto) Urine Creatinine Urine Total Protein Fluid Total Protein Vancomycin Trough Rheumatoid Factor Complement C4 Miscellaneous Test Crossmatch 10/04/16 10/05/16 10/05/16 23:25 04:30 05:00 WBC RBC 2.64 L Hgb 7.5 L Hct 22.6 L MCV MCH MCHC RDW 19.3 H Plt Count 80 L Lymph % (Auto) [place] % (Auto) Lymph # [place] # Baso # Seg Neutrophils % Seg Neuts % (Manual) Lymphocytes % (Manual) 12.0 L Monocytes % (Manual) Eosinophils % (Manual) Basophils % (Manual) Nucleated RBC % Seg Neutrophils # Seg Neutrophils # Man Lymphocytes # (Manual) Monocytes # (Manual) Eosinophils # (Manual) Basophils # (Manual) PT INR Fibrinogen dRVVT Confirm Interp Factor V Activity POC ABG pH 7.475 H POC ABG pCO2 33.3 L POC ABG pO2 140 H ABG pO2 ABG HCO3 ABG Base Excess ABG Hemoglobin Oxyhemoglobin Sodium Potassium Chloride Carbon Dioxide BUN Creatinine Glucose POC Glucose 141 H Lactic Acid Calcium Phosphorus Magnesium Direct Bilirubin AST ALT Alkaline Phosphatase Lactate Dehydrogenase Troponin T C-Reactive Protein Total Protein Albumin Prealbumin Triglycerides Cholesterol LDL Cholesterol Direct HDL Cholesterol PTH Intact Urine pH Urine WBC (Auto) Urine Creatinine Urine Total Protein Fluid Total Protein Vancomycin Trough Rheumatoid Factor Complement C4 Miscellaneous Test Crossmatch 10/05/16 10/05/16 10/05/16 05:00 05:09 12:58 WBC RBC Hgb Hct MCV MCH MCHC RDW Plt Count Lymph % (Auto) [place] % (Auto) Lymph # [place] # Baso # Seg Neutrophils % Seg Neuts % (Manual) Lymphocytes % (Manual) Monocytes % (Manual) Eosinophils % (Manual) Basophils % (Manual) Nucleated RBC % Seg Neutrophils # Seg Neutrophils # Man Lymphocytes # (Manual) Monocytes # (Manual) Eosinophils # (Manual) Basophils # (Manual) PT INR Fibrinogen dRVVT Confirm Interp Factor V Activity POC ABG pH POC ABG pCO2 POC ABG pO2 ABG pO2 ABG HCO3 ABG Base Excess ABG Hemoglobin Oxyhemoglobin Sodium 131 L Potassium Chloride 94.0 L Carbon Dioxide 20 L BUN 22 H Creatinine 2.0 H Glucose 123 H POC Glucose 166 H 179 H Lactic Acid Calcium 7.7 L Phosphorus 2.20 L D Magnesium Direct Bilirubin AST ALT Alkaline Phosphatase Lactate Dehydrogenase Troponin T C-Reactive Protein Total Protein Albumin Prealbumin Triglycerides Cholesterol LDL Cholesterol Direct HDL Cholesterol PTH Intact Urine pH Urine WBC (Auto) Urine Creatinine Urine Total Protein Fluid Total Protein Vancomycin Trough Rheumatoid Factor Complement C4 Miscellaneous Test Crossmatch 10/05/16 10/05/16 10/05/16 15:50 18:53 23:12 WBC RBC Hgb Hct MCV MCH MCHC RDW Plt Count Lymph % (Auto) [place] % (Auto) Lymph # [place] # Baso # Seg Neutrophils % Seg Neuts % (Manual) Lymphocytes % (Manual) Monocytes % (Manual) Eosinophils % (Manual) Basophils % (Manual) Nucleated RBC % Seg Neutrophils # Seg Neutrophils # Man Lymphocytes # (Manual) Monocytes # (Manual) Eosinophils # (Manual) Basophils # (Manual) PT INR Fibrinogen dRVVT Confirm Interp Factor V Activity POC ABG pH POC ABG pCO2 POC ABG pO2 ABG pO2 ABG HCO3 ABG Base Excess ABG Hemoglobin Oxyhemoglobin Sodium Potassium Chloride Carbon Dioxide BUN Creatinine Glucose POC Glucose 150 H 164 H Lactic Acid Calcium Phosphorus Magnesium Direct Bilirubin AST ALT Alkaline Phosphatase Lactate Dehydrogenase Troponin T C-Reactive Protein Total Protein Albumin Prealbumin Triglycerides Cholesterol LDL Cholesterol Direct HDL Cholesterol PTH Intact Urine pH Urine WBC (Auto) Urine Creatinine Urine Total Protein Fluid Total Protein Vancomycin Trough Rheumatoid Factor Complement C4 Miscellaneous Test Crossmatch See Detail 10/06/16 10/06/16 10/06/16 03:50 03:50 04:53 WBC RBC 3.00 L Hgb 8.6 L Hct 25.8 L MCV MCH MCHC RDW 17.9 H Plt Count 65 L Lymph % (Auto) [place] % (Auto) Lymph # [place] # Baso # Seg Neutrophils % Seg Neuts % (Manual) 30.0 L Lymphocytes % (Manual) 5.0 L Monocytes % (Manual) Eosinophils % (Manual) Basophils % (Manual) Nucleated RBC % Seg Neutrophils # Seg Neutrophils # Man Lymphocytes # (Manual) 0.4 L Monocytes # (Manual) Eosinophils # (Manual) Basophils # (Manual) PT INR Fibrinogen dRVVT Confirm Interp Factor V Activity POC ABG pH 7.310 L POC ABG pCO2 49.0 H POC ABG pO2 ABG pO2 ABG HCO3 ABG Base Excess ABG Hemoglobin Oxyhemoglobin Sodium 133 L Potassium Chloride 95.9 L Carbon Dioxide BUN 26 H Creatinine 2.0 H Glucose 116 H POC Glucose Lactic Acid Calcium 7.8 L Phosphorus Magnesium Direct Bilirubin AST ALT Alkaline Phosphatase Lactate Dehydrogenase Troponin T C-Reactive Protein Total Protein Albumin Prealbumin Triglycerides Cholesterol LDL Cholesterol Direct HDL Cholesterol PTH Intact Urine pH Urine WBC (Auto) Urine Creatinine Urine Total Protein Fluid Total Protein Vancomycin Trough Rheumatoid Factor Complement C4 Miscellaneous Test Crossmatch 10/06/16 10/06/16 10/06/16 05:23 11:52 18:34 WBC RBC Hgb Hct MCV MCH MCHC RDW Plt Count Lymph % (Auto) [place] % (Auto) Lymph # [place] # Baso # Seg Neutrophils % Seg Neuts % (Manual) Lymphocytes % (Manual) Monocytes % (Manual) Eosinophils % (Manual) Basophils % (Manual) Nucleated RBC % Seg Neutrophils # Seg Neutrophils # Man Lymphocytes # (Manual) Monocytes # (Manual) Eosinophils # (Manual) Basophils # (Manual) PT INR Fibrinogen dRVVT Confirm Interp Factor V Activity POC ABG pH POC ABG pCO2 POC ABG pO2 ABG pO2 ABG HCO3 ABG Base Excess ABG Hemoglobin Oxyhemoglobin Sodium Potassium Chloride Carbon Dioxide BUN Creatinine Glucose POC Glucose 126 H 116 H 129 H Lactic Acid Calcium Phosphorus Magnesium Direct Bilirubin AST ALT Alkaline Phosphatase Lactate Dehydrogenase Troponin T C-Reactive Protein Total Protein Albumin Prealbumin Triglycerides Cholesterol LDL Cholesterol Direct HDL Cholesterol PTH Intact Urine pH Urine WBC (Auto) Urine Creatinine Urine Total Protein Fluid Total Protein Vancomycin Trough Rheumatoid Factor Complement C4 Miscellaneous Test Crossmatch 10/07/16 10/07/16 10/07/16 03:45 05:00 10:00 WBC 17.0 H RBC 2.68 L Hgb 7.3 L Hct 25.3 L MCV MCH 27 L MCHC 29 L RDW 19.6 H Plt Count 74 L Lymph % (Auto) [place] % (Auto) Lymph # [place] # Baso # Seg Neutrophils % Seg Neuts % (Manual) Lymphocytes % (Manual) 12.0 L Monocytes % (Manual) Eosinophils % (Manual) Basophils % (Manual) Nucleated RBC % 4.0 H Seg Neutrophils # Seg Neutrophils # Man 10.7 H Lymphocytes # (Manual) Monocytes # (Manual) Eosinophils # (Manual) Basophils # (Manual) PT INR Fibrinogen dRVVT Confirm Interp Factor V Activity POC ABG pH POC ABG pCO2 POC ABG pO2 ABG pO2 ABG HCO3 ABG Base Excess ABG Hemoglobin Oxyhemoglobin Sodium 130 L Potassium 3.2 L Chloride 93.9 L Carbon Dioxide 20 L BUN 44 H Creatinine 2.7 H Glucose 129 H POC Glucose Lactic Acid Calcium 7.4 L Phosphorus Magnesium Direct Bilirubin AST ALT 6 L Alkaline Phosphatase 195 H Lactate Dehydrogenase Troponin T C-Reactive Protein Total Protein 4.9 L Albumin 1.0 L Prealbumin Triglycerides Cholesterol LDL Cholesterol Direct HDL Cholesterol PTH Intact Urine pH Urine WBC (Auto) Urine Creatinine Urine Total Protein Fluid Total Protein Vancomycin Trough Rheumatoid Factor Complement C4 Miscellaneous Test Flexitest 1 H Crossmatch 10/07/16 10/07/16 10/07/16 10:00 11:24 18:10 WBC RBC Hgb Hct MCV MCH MCHC RDW Plt Count Lymph % (Auto) [place] % (Auto) Lymph # [place] # Baso # Seg Neutrophils % Seg Neuts % (Manual) Lymphocytes % (Manual) Monocytes % (Manual) Eosinophils % (Manual) Basophils % (Manual) Nucleated RBC % Seg Neutrophils # Seg Neutrophils # Man Lymphocytes # (Manual) Monocytes # (Manual) Eosinophils # (Manual) Basophils # (Manual) PT INR Fibrinogen dRVVT Confirm Interp Factor V Activity POC ABG pH POC ABG pCO2 POC ABG pO2 ABG pO2 ABG HCO3 ABG Base Excess ABG Hemoglobin Oxyhemoglobin Sodium Potassium Chloride Carbon Dioxide BUN Creatinine Glucose POC Glucose 116 H 130 H Lactic Acid Calcium Phosphorus Magnesium Direct Bilirubin AST ALT Alkaline Phosphatase Lactate Dehydrogenase Troponin T C-Reactive Protein 19.40 H Total Protein Albumin Prealbumin Triglycerides Cholesterol LDL Cholesterol Direct HDL Cholesterol PTH Intact Urine pH Urine WBC (Auto) Urine Creatinine Urine Total Protein Fluid Total Protein Vancomycin Trough Rheumatoid Factor Complement C4 Miscellaneous Test Crossmatch 10/07/16 10/08/16 10/08/16 18:30 00:00 04:00 WBC RBC Hgb Hct MCV MCH MCHC RDW Plt Count Lymph % (Auto) [place] % (Auto) Lymph # [place] # Baso # Seg Neutrophils % Seg Neuts % (Manual) Lymphocytes % (Manual) Monocytes % (Manual) Eosinophils % (Manual) Basophils % (Manual) Nucleated RBC % Seg Neutrophils # Seg Neutrophils # Man Lymphocytes # (Manual) Monocytes # (Manual) Eosinophils # (Manual) Basophils # (Manual) PT INR Fibrinogen dRVVT Confirm Interp Factor V Activity POC ABG pH POC ABG pCO2 POC ABG pO2 ABG pO2 ABG HCO3 ABG Base Excess ABG Hemoglobin Oxyhemoglobin Sodium 132 L Potassium 3.3 L Chloride 93.6 L Carbon Dioxide 17 L BUN 59 H Creatinine 2.7 H Glucose 121 H POC Glucose 122 H Lactic Acid Calcium 7.6 L Phosphorus Magnesium Direct Bilirubin AST ALT Alkaline Phosphatase Lactate Dehydrogenase Troponin T C-Reactive Protein Total Protein Albumin Prealbumin Triglycerides Cholesterol LDL Cholesterol Direct HDL Cholesterol PTH Intact Urine pH Urine WBC (Auto) > 182.0 H Urine Creatinine Urine Total Protein Fluid Total Protein Vancomycin Trough Rheumatoid Factor Complement C4 Miscellaneous Test Crossmatch 10/08/16 10/08/16 10/08/16 04:30 05:30 11:51 WBC RBC 5.15 H Hgb 14.4 H D Hct 44.5 H D MCV MCH MCHC RDW 19.5 H Plt Count 56 L Lymph % (Auto) [place] % (Auto) Lymph # [place] # Baso # Seg Neutrophils % Seg Neuts % (Manual) 24.0 L Lymphocytes % (Manual) 8.0 L Monocytes % (Manual) Eosinophils % (Manual) Basophils % (Manual) Nucleated RBC % 9.0 H Seg Neutrophils # Seg Neutrophils # Man Lymphocytes # (Manual) 0.7 L Monocytes # (Manual) Eosinophils # (Manual) Basophils # (Manual) PT INR Fibrinogen dRVVT Confirm Interp Factor V Activity POC ABG pH POC ABG pCO2 POC ABG pO2 ABG pO2 ABG HCO3 ABG Base Excess ABG Hemoglobin Oxyhemoglobin Sodium Potassium Chloride Carbon Dioxide BUN Creatinine Glucose POC Glucose 125 H 150 H Lactic Acid Calcium Phosphorus Magnesium Direct Bilirubin AST ALT Alkaline Phosphatase Lactate Dehydrogenase Troponin T C-Reactive Protein Total Protein Albumin Prealbumin Triglycerides Cholesterol LDL Cholesterol Direct HDL Cholesterol PTH Intact Urine pH Urine WBC (Auto) Urine Creatinine Urine Total Protein Fluid Total Protein Vancomycin Trough Rheumatoid Factor Complement C4 Miscellaneous Test Crossmatch 10/08/16 10/08/16 10/08/16 12:49 17:07 19:30 WBC RBC Hgb 7.1 L D Hct 22.4 L D MCV MCH MCHC RDW Plt Count Lymph % (Auto) [place] % (Auto) Lymph # [place] # Baso # Seg Neutrophils % Seg Neuts % (Manual) Lymphocytes % (Manual) Monocytes % (Manual) Eosinophils % (Manual) Basophils % (Manual) Nucleated RBC % Seg Neutrophils # Seg Neutrophils # Man Lymphocytes # (Manual) Monocytes # (Manual) Eosinophils # (Manual) Basophils # (Manual) PT INR Fibrinogen dRVVT Confirm Interp Factor V Activity POC ABG pH POC ABG pCO2 28.2 L POC ABG pO2 111 H ABG pO2 ABG HCO3 ABG Base Excess ABG Hemoglobin Oxyhemoglobin Sodium Potassium Chloride Carbon Dioxide BUN Creatinine Glucose POC Glucose 145 H Lactic Acid Calcium Phosphorus Magnesium Direct Bilirubin AST ALT Alkaline Phosphatase Lactate Dehydrogenase Troponin T C-Reactive Protein Total Protein Albumin Prealbumin Triglycerides Cholesterol LDL Cholesterol Direct HDL Cholesterol PTH Intact Urine pH Urine WBC (Auto) Urine Creatinine Urine Total Protein Fluid Total Protein Vancomycin Trough Rheumatoid Factor Complement C4 Miscellaneous Test Crossmatch 10/08/16 10/09/16 10/09/16 19:30 03:45 03:45 WBC 12.6 H RBC 2.36 L Hgb 6.7 L Hct 21.1 L MCV MCH MCHC RDW 19.5 H Plt Count 75 L Lymph % (Auto) [place] % (Auto) Lymph # [place] # Baso # Seg Neutrophils % Seg Neuts % (Manual) Lymphocytes % (Manual) Monocytes % (Manual) 10.0 H Eosinophils % (Manual) Basophils % (Manual) Nucleated RBC % 3.0 H Seg Neutrophils # Seg Neutrophils # Man Lymphocytes # (Manual) Monocytes # (Manual) 1.3 H Eosinophils # (Manual) Basophils # (Manual) PT 18.0 H INR 1.41 H Fibrinogen dRVVT Confirm Interp Factor V Activity POC ABG pH POC ABG pCO2 POC ABG pO2 ABG pO2 ABG HCO3 ABG Base Excess ABG Hemoglobin Oxyhemoglobin Sodium 135 L Potassium Chloride Carbon Dioxide 17 L BUN 81 H Creatinine 3.2 H Glucose 109 H POC Glucose Lactic Acid Calcium 7.4 L Phosphorus 4.60 H D Magnesium Direct Bilirubin AST ALT Alkaline Phosphatase Lactate Dehydrogenase Troponin T C-Reactive Protein Total Protein Albumin Prealbumin Triglycerides Cholesterol LDL Cholesterol Direct HDL Cholesterol PTH Intact Urine pH Urine WBC (Auto) Urine Creatinine Urine Total Protein Fluid Total Protein Vancomycin Trough Rheumatoid Factor Complement C4 Miscellaneous Test Crossmatch 10/09/16 10/09/16 10/09/16 03:45 05:14 07:20 WBC RBC Hgb Hct MCV MCH MCHC RDW Plt Count Lymph % (Auto) [place] % (Auto) Lymph # [place] # Baso # Seg Neutrophils % Seg Neuts % (Manual) Lymphocytes % (Manual) Monocytes % (Manual) Eosinophils % (Manual) Basophils % (Manual) Nucleated RBC % Seg Neutrophils # Seg Neutrophils # Man Lymphocytes # (Manual) Monocytes # (Manual) Eosinophils # (Manual) Basophils # (Manual) PT 19.0 H INR 1.51 H Fibrinogen dRVVT Confirm Interp Factor V Activity POC ABG pH POC ABG pCO2 POC ABG pO2 ABG pO2 ABG HCO3 ABG Base Excess ABG Hemoglobin Oxyhemoglobin Sodium Potassium Chloride Carbon Dioxide BUN Creatinine Glucose POC Glucose 151 H Lactic Acid Calcium Phosphorus Magnesium Direct Bilirubin AST ALT Alkaline Phosphatase Lactate Dehydrogenase Troponin T C-Reactive Protein Total Protein Albumin Prealbumin Triglycerides Cholesterol LDL Cholesterol Direct HDL Cholesterol PTH Intact Urine pH Urine WBC (Auto) Urine Creatinine Urine Total Protein Fluid Total Protein Vancomycin Trough Rheumatoid Factor Complement C4 Miscellaneous Test Crossmatch See Detail 10/09/16 10/09/16 10/09/16 11:46 16:20 16:43 WBC RBC Hgb 7.2 L Hct 22.2 L MCV MCH MCHC RDW Plt Count Lymph % (Auto) [place] % (Auto) Lymph # [place] # Baso # Seg Neutrophils % Seg Neuts % (Manual) Lymphocytes % (Manual) Monocytes % (Manual) Eosinophils % (Manual) Basophils % (Manual) Nucleated RBC % Seg Neutrophils # Seg Neutrophils # Man Lymphocytes # (Manual) Monocytes # (Manual) Eosinophils # (Manual) Basophils # (Manual) PT INR Fibrinogen dRVVT Confirm Interp Factor V Activity POC ABG pH POC ABG pCO2 POC ABG pO2 ABG pO2 ABG HCO3 ABG Base Excess ABG Hemoglobin Oxyhemoglobin Sodium Potassium Chloride Carbon Dioxide BUN Creatinine Glucose POC Glucose 133 H 141 H Lactic Acid Calcium Phosphorus Magnesium Direct Bilirubin AST ALT Alkaline Phosphatase Lactate Dehydrogenase Troponin T C-Reactive Protein Total Protein Albumin Prealbumin Triglycerides Cholesterol LDL Cholesterol Direct HDL Cholesterol PTH Intact Urine pH Urine WBC (Auto) Urine Creatinine Urine Total Protein Fluid Total Protein Vancomycin Trough Rheumatoid Factor Complement C4 Miscellaneous Test Crossmatch 10/10/16 10/10/16 10/10/16 05:00 05:00 11:19 WBC 18.5 H RBC 2.19 L Hgb 6.4 L Hct 19.6 L* MCV MCH MCHC RDW 19.3 H Plt Count 93 L Lymph % (Auto) [place] % (Auto) Lymph # [place] # Baso # Seg Neutrophils % Seg Neuts % (Manual) Lymphocytes % (Manual) 10.0 L Monocytes % (Manual) Eosinophils % (Manual) Basophils % (Manual) Nucleated RBC % 4.0 H Seg Neutrophils # Seg Neutrophils # Man 11.3 H Lymphocytes # (Manual) Monocytes # (Manual) Eosinophils # (Manual) Basophils # (Manual) PT INR Fibrinogen dRVVT Confirm Interp Factor V Activity POC ABG pH POC ABG pCO2 POC ABG pO2 ABG pO2 ABG HCO3 ABG Base Excess ABG Hemoglobin Oxyhemoglobin Sodium Potassium 5.7 H D Chloride Carbon Dioxide 16 L BUN 94 H Creatinine 3.1 H Glucose 131 H POC Glucose 153 H Lactic Acid Calcium 8.2 L Phosphorus 5.10 H Magnesium 2.40 H Direct Bilirubin 0.3 H AST ALT < 5 L Alkaline Phosphatase 319 H Lactate Dehydrogenase Troponin T C-Reactive Protein Total Protein 5.1 L Albumin 1.0 L Prealbumin Triglycerides Cholesterol LDL Cholesterol Direct HDL Cholesterol PTH Intact Urine pH Urine WBC (Auto) Urine Creatinine Urine Total Protein Fluid Total Protein Vancomycin Trough Rheumatoid Factor Complement C4 Miscellaneous Test Crossmatch 10/10/16 10/10/16 10/11/16 17:50 23:30 04:15 WBC RBC Hgb Hct MCV MCH MCHC RDW Plt Count Lymph % (Auto) [place] % (Auto) Lymph # [place] # Baso # Seg Neutrophils % Seg Neuts % (Manual) Lymphocytes % (Manual) Monocytes % (Manual) Eosinophils % (Manual) Basophils % (Manual) Nucleated RBC % Seg Neutrophils # Seg Neutrophils # Man Lymphocytes # (Manual) Monocytes # (Manual) Eosinophils # (Manual) Basophils # (Manual) PT INR Fibrinogen dRVVT Confirm Interp Factor V Activity POC ABG pH POC ABG pCO2 POC ABG pO2 ABG pO2 ABG HCO3 ABG Base Excess ABG Hemoglobin Oxyhemoglobin Sodium Potassium Chloride 96.4 L Carbon Dioxide 21 L BUN 57 H Creatinine 2.1 H Glucose 151 H POC Glucose 146 H 141 H Lactic Acid Calcium 8.3 L Phosphorus Magnesium Direct Bilirubin AST ALT Alkaline Phosphatase Lactate Dehydrogenase Troponin T C-Reactive Protein Total Protein Albumin Prealbumin Triglycerides Cholesterol LDL Cholesterol Direct HDL Cholesterol PTH Intact Urine pH Urine WBC (Auto) Urine Creatinine Urine Total Protein Fluid Total Protein Vancomycin Trough Rheumatoid Factor Complement C4 Miscellaneous Test Crossmatch 10/11/16 10/11/16 10/11/16 04:15 04:15 05:30 WBC 28.3 H RBC 3.12 L Hgb 9.3 L Hct 28.7 L D MCV MCH MCHC RDW 17.7 H Plt Count 128 L Lymph % (Auto) [place] % (Auto) Lymph # [place] # Baso # Seg Neutrophils % Seg Neuts % (Manual) Lymphocytes % (Manual) Monocytes % (Manual) Eosinophils % (Manual) Basophils % (Manual) Nucleated RBC % Seg Neutrophils # Seg Neutrophils # Man Lymphocytes # (Manual) Monocytes # (Manual) Eosinophils # (Manual) Basophils # (Manual) PT INR Fibrinogen dRVVT Confirm Interp Factor V Activity POC ABG pH POC ABG pCO2 POC ABG pO2 ABG pO2 ABG HCO3 ABG Base Excess ABG Hemoglobin Oxyhemoglobin Sodium Potassium Chloride Carbon Dioxide BUN Creatinine Glucose POC Glucose 167 H Lactic Acid Calcium Phosphorus Magnesium Direct Bilirubin AST ALT Alkaline Phosphatase Lactate Dehydrogenase Troponin T C-Reactive Protein 15.80 H Total Protein Albumin Prealbumin Triglycerides Cholesterol LDL Cholesterol Direct HDL Cholesterol PTH Intact Urine pH Urine WBC (Auto) Urine Creatinine Urine Total Protein Fluid Total Protein Vancomycin Trough Rheumatoid Factor Complement C4 Miscellaneous Test Crossmatch 10/11/16 10/11/16 10/11/16 11:40 15:49 23:57 WBC RBC Hgb Hct MCV MCH MCHC RDW Plt Count Lymph % (Auto) [place] % (Auto) Lymph # [place] # Baso # Seg Neutrophils % Seg Neuts % (Manual) Lymphocytes % (Manual) Monocytes % (Manual) Eosinophils % (Manual) Basophils % (Manual) Nucleated RBC % Seg Neutrophils # Seg Neutrophils # Man Lymphocytes # (Manual) Monocytes # (Manual) Eosinophils # (Manual) Basophils # (Manual) PT INR Fibrinogen dRVVT Confirm Interp Factor V Activity POC ABG pH POC ABG pCO2 POC ABG pO2 ABG pO2 ABG HCO3 ABG Base Excess ABG Hemoglobin Oxyhemoglobin Sodium Potassium Chloride Carbon Dioxide BUN Creatinine Glucose POC Glucose 139 H 168 H 161 H Lactic Acid Calcium Phosphorus Magnesium Direct Bilirubin AST ALT Alkaline Phosphatase Lactate Dehydrogenase Troponin T C-Reactive Protein Total Protein Albumin Prealbumin Triglycerides Cholesterol LDL Cholesterol Direct HDL Cholesterol PTH Intact Urine pH Urine WBC (Auto) Urine Creatinine Urine Total Protein Fluid Total Protein Vancomycin Trough Rheumatoid Factor Complement C4 Miscellaneous Test Crossmatch 10/12/16 10/12/16 10/12/16 04:40 04:40 05:44 WBC 22.5 H RBC 2.88 L Hgb 8.8 L Hct 26.8 L MCV MCH MCHC RDW 17.8 H Plt Count Lymph % (Auto) [place] % (Auto) Lymph # [place] # Baso # Seg Neutrophils % Seg Neuts % (Manual) Lymphocytes % (Manual) Monocytes % (Manual) Eosinophils % (Manual) Basophils % (Manual) Nucleated RBC % Seg Neutrophils # Seg Neutrophils # Man Lymphocytes # (Manual) Monocytes # (Manual) Eosinophils # (Manual) Basophils # (Manual) PT INR Fibrinogen dRVVT Confirm Interp Factor V Activity POC ABG pH POC ABG pCO2 POC ABG pO2 ABG pO2 ABG HCO3 ABG Base Excess ABG Hemoglobin Oxyhemoglobin Sodium 134 L Potassium Chloride 93.0 L Carbon Dioxide BUN 74 H Creatinine 2.5 H Glucose 137 H POC Glucose 158 H Lactic Acid Calcium 8.2 L Phosphorus Magnesium Direct Bilirubin AST ALT Alkaline Phosphatase Lactate Dehydrogenase Troponin T C-Reactive Protein Total Protein Albumin Prealbumin Triglycerides Cholesterol LDL Cholesterol Direct HDL Cholesterol PTH Intact Urine pH Urine WBC (Auto) Urine Creatinine Urine Total Protein Fluid Total Protein Vancomycin Trough Rheumatoid Factor Complement C4 Miscellaneous Test Crossmatch 10/12/16 10/12/16 10/12/16 12:27 18:18 23:46 WBC RBC Hgb Hct MCV MCH MCHC RDW Plt Count Lymph % (Auto) [place] % (Auto) Lymph # [place] # Baso # Seg Neutrophils % Seg Neuts % (Manual) Lymphocytes % (Manual) Monocytes % (Manual) Eosinophils % (Manual) Basophils % (Manual) Nucleated RBC % Seg Neutrophils # Seg Neutrophils # Man Lymphocytes # (Manual) Monocytes # (Manual) Eosinophils # (Manual) Basophils # (Manual) PT INR Fibrinogen dRVVT Confirm Interp Factor V Activity POC ABG pH POC ABG pCO2 POC ABG pO2 ABG pO2 ABG HCO3 ABG Base Excess ABG Hemoglobin Oxyhemoglobin Sodium Potassium Chloride Carbon Dioxide BUN Creatinine Glucose POC Glucose 153 H 140 H 150 H Lactic Acid Calcium Phosphorus Magnesium Direct Bilirubin AST ALT Alkaline Phosphatase Lactate Dehydrogenase Troponin T C-Reactive Protein Total Protein Albumin Prealbumin Triglycerides Cholesterol LDL Cholesterol Direct HDL Cholesterol PTH Intact Urine pH Urine WBC (Auto) Urine Creatinine Urine Total Protein Fluid Total Protein Vancomycin Trough Rheumatoid Factor Complement C4 Miscellaneous Test Crossmatch 10/13/16 10/13/16 10/13/16 06:22 09:20 12:29 WBC RBC Hgb Hct MCV MCH MCHC RDW Plt Count Lymph % (Auto) [place] % (Auto) Lymph # [place] # Baso # Seg Neutrophils % Seg Neuts % (Manual) Lymphocytes % (Manual) Monocytes % (Manual) Eosinophils % (Manual) Basophils % (Manual) Nucleated RBC % Seg Neutrophils # Seg Neutrophils # Man Lymphocytes # (Manual) Monocytes # (Manual) Eosinophils # (Manual) Basophils # (Manual) PT INR Fibrinogen dRVVT Confirm Interp Factor V Activity POC ABG pH POC ABG pCO2 POC ABG pO2 ABG pO2 ABG HCO3 ABG Base Excess ABG Hemoglobin Oxyhemoglobin Sodium Potassium Chloride Carbon Dioxide BUN Creatinine Glucose POC Glucose 165 H 193 H Lactic Acid Calcium Phosphorus Magnesium Direct Bilirubin AST ALT Alkaline Phosphatase Lactate Dehydrogenase Troponin T C-Reactive Protein Total Protein Albumin Prealbumin Triglycerides Cholesterol LDL Cholesterol Direct HDL Cholesterol PTH Intact Urine pH Urine WBC (Auto) Urine Creatinine Urine Total Protein Fluid Total Protein Vancomycin Trough Rheumatoid Factor Complement C4 Miscellaneous Test Flexitest 1 H Crossmatch 10/13/16 10/13/16 10/13/16 18:09 Unknown Unknown WBC 23.4 H RBC 2.83 L Hgb 8.7 L Hct 26.1 L MCV MCH MCHC RDW 18.1 H Plt Count Lymph % (Auto) [place] % (Auto) Lymph # [place] # Baso # Seg Neutrophils % Seg Neuts % (Manual) Lymphocytes % (Manual) Monocytes % (Manual) Eosinophils % (Manual) Basophils % (Manual) Nucleated RBC % Seg Neutrophils # Seg Neutrophils # Man Lymphocytes # (Manual) Monocytes # (Manual) Eosinophils # (Manual) Basophils # (Manual) PT INR Fibrinogen dRVVT Confirm Interp Factor V Activity POC ABG pH POC ABG pCO2 POC ABG pO2 ABG pO2 ABG HCO3 ABG Base Excess ABG Hemoglobin Oxyhemoglobin Sodium Potassium Chloride 95.8 L Carbon Dioxide BUN 82 H Creatinine 2.6 H Glucose 152 H POC Glucose 166 H Lactic Acid Calcium Phosphorus Magnesium Direct Bilirubin AST ALT Alkaline Phosphatase Lactate Dehydrogenase Troponin T C-Reactive Protein Total Protein Albumin Prealbumin Triglycerides Cholesterol LDL Cholesterol Direct HDL Cholesterol PTH Intact Urine pH Urine WBC (Auto) Urine Creatinine Urine Total Protein Fluid Total Protein Vancomycin Trough Rheumatoid Factor Complement C4 Miscellaneous Test Crossmatch 10/14/16 10/14/16 10/14/16 05:38 06:35 08:10 WBC 20.7 H RBC 2.81 L Hgb 8.4 L Hct 27.2 L MCV MCH MCHC RDW 19.4 H Plt Count Lymph % (Auto) [place] % (Auto) Lymph # [place] # Baso # Seg Neutrophils % Seg Neuts % (Manual) Lymphocytes % (Manual) Monocytes % (Manual) Eosinophils % (Manual) Basophils % (Manual) Nucleated RBC % Seg Neutrophils # Seg Neutrophils # Man Lymphocytes # (Manual) Monocytes # (Manual) Eosinophils # (Manual) Basophils # (Manual) PT INR Fibrinogen dRVVT Confirm Interp Factor V Activity POC ABG pH POC ABG pCO2 POC ABG pO2 ABG pO2 ABG HCO3 ABG Base Excess ABG Hemoglobin Oxyhemoglobin Sodium Potassium Chloride Carbon Dioxide BUN 58 H Creatinine 1.9 H Glucose 169 H POC Glucose 195 H Lactic Acid Calcium Phosphorus Magnesium Direct Bilirubin AST ALT Alkaline Phosphatase Lactate Dehydrogenase Troponin T C-Reactive Protein Total Protein Albumin Prealbumin Triglycerides Cholesterol LDL Cholesterol Direct HDL Cholesterol PTH Intact Urine pH Urine WBC (Auto) Urine Creatinine Urine Total Protein Fluid Total Protein Vancomycin Trough Rheumatoid Factor Complement C4 Miscellaneous Test Crossmatch 10/14/16 10/14/16 10/14/16 11:44 17:13 23:28 WBC RBC Hgb Hct MCV MCH MCHC RDW Plt Count Lymph % (Auto) [place] % (Auto) Lymph # [place] # Baso # Seg Neutrophils % Seg Neuts % (Manual) Lymphocytes % (Manual) Monocytes % (Manual) Eosinophils % (Manual) Basophils % (Manual) Nucleated RBC % Seg Neutrophils # Seg Neutrophils # Man Lymphocytes # (Manual) Monocytes # (Manual) Eosinophils # (Manual) Basophils # (Manual) PT INR Fibrinogen dRVVT Confirm Interp Factor V Activity POC ABG pH POC ABG pCO2 POC ABG pO2 ABG pO2 ABG HCO3 ABG Base Excess ABG Hemoglobin Oxyhemoglobin Sodium Potassium Chloride Carbon Dioxide BUN Creatinine Glucose POC Glucose 174 H 121 H 151 H Lactic Acid Calcium Phosphorus Magnesium Direct Bilirubin AST ALT Alkaline Phosphatase Lactate Dehydrogenase Troponin T C-Reactive Protein Total Protein Albumin Prealbumin Triglycerides Cholesterol LDL Cholesterol Direct HDL Cholesterol PTH Intact Urine pH Urine WBC (Auto) Urine Creatinine Urine Total Protein Fluid Total Protein Vancomycin Trough Rheumatoid Factor Complement C4 Miscellaneous Test Crossmatch 10/15/16 10/15/16 10/15/16 05:06 12:26 17:48 WBC RBC Hgb Hct MCV MCH MCHC RDW Plt Count Lymph % (Auto) [place] % (Auto) Lymph # [place] # Baso # Seg Neutrophils % Seg Neuts % (Manual) Lymphocytes % (Manual) Monocytes % (Manual) Eosinophils % (Manual) Basophils % (Manual) Nucleated RBC % Seg Neutrophils # Seg Neutrophils # Man Lymphocytes # (Manual) Monocytes # (Manual) Eosinophils # (Manual) Basophils # (Manual) PT INR Fibrinogen dRVVT Confirm Interp Factor V Activity POC ABG pH POC ABG pCO2 POC ABG pO2 ABG pO2 ABG HCO3 ABG Base Excess ABG Hemoglobin Oxyhemoglobin Sodium Potassium Chloride Carbon Dioxide BUN Creatinine Glucose POC Glucose 151 H 149 H 153 H Lactic Acid Calcium Phosphorus Magnesium Direct Bilirubin AST ALT Alkaline Phosphatase Lactate Dehydrogenase Troponin T C-Reactive Protein Total Protein Albumin Prealbumin Triglycerides Cholesterol LDL Cholesterol Direct HDL Cholesterol PTH Intact Urine pH Urine WBC (Auto) Urine Creatinine Urine Total Protein Fluid Total Protein Vancomycin Trough Rheumatoid Factor Complement C4 Miscellaneous Test Crossmatch 10/15/16 10/15/16 10/16/16 Unknown Unknown 00:02 WBC 23.4 H RBC 2.78 L Hgb 8.5 L Hct 25.7 L MCV MCH MCHC RDW 18.7 H Plt Count Lymph % (Auto) [place] % (Auto) Lymph # [place] # Baso # Seg Neutrophils % Seg Neuts % (Manual) Lymphocytes % (Manual) Monocytes % (Manual) Eosinophils % (Manual) Basophils % (Manual) Nucleated RBC % Seg Neutrophils # Seg Neutrophils # Man Lymphocytes # (Manual) Monocytes # (Manual) Eosinophils # (Manual) Basophils # (Manual) PT INR Fibrinogen dRVVT Confirm Interp Factor V Activity POC ABG pH POC ABG pCO2 POC ABG pO2 ABG pO2 ABG HCO3 ABG Base Excess ABG Hemoglobin Oxyhemoglobin Sodium Potassium Chloride Carbon Dioxide BUN 73 H Creatinine 2.3 H Glucose 120 H POC Glucose 137 H Lactic Acid Calcium Phosphorus Magnesium Direct Bilirubin AST ALT Alkaline Phosphatase Lactate Dehydrogenase Troponin T C-Reactive Protein Total Protein Albumin Prealbumin Triglycerides Cholesterol LDL Cholesterol Direct HDL Cholesterol PTH Intact Urine pH Urine WBC (Auto) Urine Creatinine Urine Total Protein Fluid Total Protein Vancomycin Trough Rheumatoid Factor Complement C4 Miscellaneous Test Crossmatch 10/16/16 10/16/16 10/16/16 05:44 06:25 06:25 WBC 22.5 H RBC 2.76 L Hgb 8.3 L Hct 25.2 L MCV MCH MCHC RDW 18.3 H Plt Count Lymph % (Auto) [place] % (Auto) Lymph # [place] # Baso # Seg Neutrophils % Seg Neuts % (Manual) Lymphocytes % (Manual) Monocytes % (Manual) Eosinophils % (Manual) Basophils % (Manual) Nucleated RBC % Seg Neutrophils # Seg Neutrophils # Man Lymphocytes # (Manual) Monocytes # (Manual) Eosinophils # (Manual) Basophils # (Manual) PT INR Fibrinogen dRVVT Confirm Interp Factor V Activity POC ABG pH POC ABG pCO2 POC ABG pO2 ABG pO2 ABG HCO3 ABG Base Excess ABG Hemoglobin Oxyhemoglobin Sodium Potassium Chloride Carbon Dioxide BUN 92 H Creatinine 3.0 H Glucose 138 H POC Glucose 110 H Lactic Acid Calcium Phosphorus Magnesium Direct Bilirubin AST ALT Alkaline Phosphatase Lactate Dehydrogenase Troponin T C-Reactive Protein Total Protein Albumin Prealbumin Triglycerides Cholesterol LDL Cholesterol Direct HDL Cholesterol PTH Intact Urine pH Urine WBC (Auto) Urine Creatinine Urine Total Protein Fluid Total Protein Vancomycin Trough Rheumatoid Factor Complement C4 Miscellaneous Test Crossmatch 10/16/16 10/16/16 10/16/16 11:27 11:48 17:36 WBC RBC Hgb Hct MCV MCH MCHC RDW Plt Count Lymph % (Auto) [place] % (Auto) Lymph # [place] # Baso # Seg Neutrophils % Seg Neuts % (Manual) Lymphocytes % (Manual) Monocytes % (Manual) Eosinophils % (Manual) Basophils % (Manual) Nucleated RBC % Seg Neutrophils # Seg Neutrophils # Man Lymphocytes # (Manual) Monocytes # (Manual) Eosinophils # (Manual) Basophils # (Manual) PT INR Fibrinogen dRVVT Confirm Interp Factor V Activity POC ABG pH 7.582 H POC ABG pCO2 27.4 L POC ABG pO2 110 H ABG pO2 ABG HCO3 ABG Base Excess ABG Hemoglobin Oxyhemoglobin Sodium Potassium Chloride Carbon Dioxide BUN Creatinine Glucose POC Glucose 121 H 133 H Lactic Acid Calcium Phosphorus Magnesium Direct Bilirubin AST ALT Alkaline Phosphatase Lactate Dehydrogenase Troponin T C-Reactive Protein Total Protein Albumin Prealbumin Triglycerides Cholesterol LDL Cholesterol Direct HDL Cholesterol PTH Intact Urine pH Urine WBC (Auto) Urine Creatinine Urine Total Protein Fluid Total Protein Vancomycin Trough Rheumatoid Factor Complement C4 Miscellaneous Test Crossmatch 10/16/16 10/17/16 10/17/16 20:48 04:24 04:24 WBC 21.4 H RBC 2.72 L Hgb 8.0 L Hct 25.2 L MCV MCH MCHC RDW 18.0 H Plt Count Lymph % (Auto) [place] % (Auto) Lymph # [place] # Baso # Seg Neutrophils % Seg Neuts % (Manual) Lymphocytes % (Manual) Monocytes % (Manual) Eosinophils % (Manual) Basophils % (Manual) Nucleated RBC % Seg Neutrophils # Seg Neutrophils # Man Lymphocytes # (Manual) Monocytes # (Manual) Eosinophils # (Manual) Basophils # (Manual) PT INR Fibrinogen dRVVT Confirm Interp Factor V Activity POC ABG pH 7.561 H POC ABG pCO2 24.4 L POC ABG pO2 77 L ABG pO2 ABG HCO3 ABG Base Excess ABG Hemoglobin Oxyhemoglobin Sodium 148 H Potassium Chloride Carbon Dioxide BUN 104 H Creatinine 3.0 H Glucose 149 H POC Glucose Lactic Acid Calcium Phosphorus Magnesium Direct Bilirubin AST ALT Alkaline Phosphatase 138 H Lactate Dehydrogenase Troponin T C-Reactive Protein Total Protein 6.2 L Albumin 1.5 L Prealbumin Triglycerides Cholesterol LDL Cholesterol Direct HDL Cholesterol PTH Intact Urine pH Urine WBC (Auto) Urine Creatinine Urine Total Protein Fluid Total Protein Vancomycin Trough Rheumatoid Factor Complement C4 Miscellaneous Test Crossmatch 10/17/16 10/17/16 10/17/16 06:02 12:17 17:14 WBC RBC Hgb Hct MCV MCH MCHC RDW Plt Count Lymph % (Auto) [place] % (Auto) Lymph # [place] # Baso # Seg Neutrophils % Seg Neuts % (Manual) Lymphocytes % (Manual) Monocytes % (Manual) Eosinophils % (Manual) Basophils % (Manual) Nucleated RBC % Seg Neutrophils # Seg Neutrophils # Man Lymphocytes # (Manual) Monocytes # (Manual) Eosinophils # (Manual) Basophils # (Manual) PT INR Fibrinogen dRVVT Confirm Interp Factor V Activity POC ABG pH POC ABG pCO2 POC ABG pO2 ABG pO2 ABG HCO3 ABG Base Excess ABG Hemoglobin Oxyhemoglobin Sodium Potassium Chloride Carbon Dioxide BUN Creatinine Glucose POC Glucose 170 H 167 H 126 H Lactic Acid Calcium Phosphorus Magnesium Direct Bilirubin AST ALT Alkaline Phosphatase Lactate Dehydrogenase Troponin T C-Reactive Protein Total Protein Albumin Prealbumin Triglycerides Cholesterol LDL Cholesterol Direct HDL Cholesterol PTH Intact Urine pH Urine WBC (Auto) Urine Creatinine Urine Total Protein Fluid Total Protein Vancomycin Trough Rheumatoid Factor Complement C4 Miscellaneous Test Crossmatch 10/17/16 10/18/16 10/18/16 23:17 04:00 04:00 WBC 20.7 H RBC 2.47 L Hgb 7.4 L Hct 22.9 L MCV MCH MCHC RDW 17.5 H Plt Count Lymph % (Auto) [place] % (Auto) Lymph # [place] # Baso # Seg Neutrophils % Seg Neuts % (Manual) Lymphocytes % (Manual) Monocytes % (Manual) Eosinophils % (Manual) Basophils % (Manual) Nucleated RBC % Seg Neutrophils # Seg Neutrophils # Man Lymphocytes # (Manual) Monocytes # (Manual) Eosinophils # (Manual) Basophils # (Manual) PT INR Fibrinogen dRVVT Confirm Interp Factor V Activity POC ABG pH POC ABG pCO2 POC ABG pO2 ABG pO2 ABG HCO3 ABG Base Excess ABG Hemoglobin Oxyhemoglobin Sodium 149 H Potassium Chloride 107.9 H Carbon Dioxide 20 L BUN 117 H Creatinine 3.2 H Glucose 119 H POC Glucose 121 H Lactic Acid Calcium Phosphorus Magnesium Direct Bilirubin AST ALT Alkaline Phosphatase Lactate Dehydrogenase Troponin T C-Reactive Protein Total Protein Albumin Prealbumin Triglycerides Cholesterol LDL Cholesterol Direct HDL Cholesterol PTH Intact Urine pH Urine WBC (Auto) Urine Creatinine Urine Total Protein Fluid Total Protein Vancomycin Trough Rheumatoid Factor Complement C4 Miscellaneous Test Crossmatch 10/18/16 10/18/16 10/18/16 05:23 10:46 17:30 WBC RBC Hgb Hct MCV MCH MCHC RDW Plt Count Lymph % (Auto) [place] % (Auto) Lymph # [place] # Baso # Seg Neutrophils % Seg Neuts % (Manual) Lymphocytes % (Manual) Monocytes % (Manual) Eosinophils % (Manual) Basophils % (Manual) Nucleated RBC % Seg Neutrophils # Seg Neutrophils # Man Lymphocytes # (Manual) Monocytes # (Manual) Eosinophils # (Manual) Basophils # (Manual) PT INR Fibrinogen dRVVT Confirm Interp Factor V Activity POC ABG pH POC ABG pCO2 POC ABG pO2 ABG pO2 ABG HCO3 ABG Base Excess ABG Hemoglobin Oxyhemoglobin Sodium Potassium Chloride Carbon Dioxide BUN Creatinine Glucose POC Glucose 119 H 155 H 124 H Lactic Acid Calcium Phosphorus Magnesium Direct Bilirubin AST ALT Alkaline Phosphatase Lactate Dehydrogenase Troponin T C-Reactive Protein Total Protein Albumin Prealbumin Triglycerides Cholesterol LDL Cholesterol Direct HDL Cholesterol PTH Intact Urine pH Urine WBC (Auto) Urine Creatinine Urine Total Protein Fluid Total Protein Vancomycin Trough Rheumatoid Factor Complement C4 Miscellaneous Test Crossmatch 10/19/16 10/19/16 10/19/16 04:00 04:00 05:25 WBC 17.4 H RBC 2.54 L Hgb 7.7 L Hct 23.6 L MCV MCH MCHC RDW 17.3 H Plt Count Lymph % (Auto) [place] % (Auto) Lymph # [place] # Baso # Seg Neutrophils % Seg Neuts % (Manual) Lymphocytes % (Manual) Monocytes % (Manual) Eosinophils % (Manual) Basophils % (Manual) Nucleated RBC % Seg Neutrophils # Seg Neutrophils # Man Lymphocytes # (Manual) Monocytes # (Manual) Eosinophils # (Manual) Basophils # (Manual) PT INR Fibrinogen dRVVT Confirm Interp Factor V Activity POC ABG pH POC ABG pCO2 POC ABG pO2 ABG pO2 ABG HCO3 ABG Base Excess ABG Hemoglobin Oxyhemoglobin Sodium Potassium Chloride Carbon Dioxide BUN 72 H Creatinine 2.1 H Glucose 116 H POC Glucose 119 H Lactic Acid Calcium Phosphorus Magnesium Direct Bilirubin AST ALT Alkaline Phosphatase Lactate Dehydrogenase Troponin T C-Reactive Protein Total Protein Albumin Prealbumin Triglycerides Cholesterol LDL Cholesterol Direct HDL Cholesterol PTH Intact Urine pH Urine WBC (Auto) Urine Creatinine Urine Total Protein Fluid Total Protein Vancomycin Trough Rheumatoid Factor Complement C4 Miscellaneous Test Crossmatch 10/19/16 10/19/16 10/20/16 11:46 23:59 06:00 WBC RBC Hgb Hct MCV MCH MCHC RDW Plt Count Lymph % (Auto) [place] % (Auto) Lymph # [place] # Baso # Seg Neutrophils % Seg Neuts % (Manual) Lymphocytes % (Manual) Monocytes % (Manual) Eosinophils % (Manual) Basophils % (Manual) Nucleated RBC % Seg Neutrophils # Seg Neutrophils # Man Lymphocytes # (Manual) Monocytes # (Manual) Eosinophils # (Manual) Basophils # (Manual) PT INR Fibrinogen dRVVT Confirm Interp Factor V Activity POC ABG pH POC ABG pCO2 POC ABG pO2 ABG pO2 ABG HCO3 ABG Base Excess ABG Hemoglobin Oxyhemoglobin Sodium Potassium Chloride Carbon Dioxide 17 L BUN 94 H Creatinine 2.7 H Glucose POC Glucose 116 H 117 H Lactic Acid Calcium Phosphorus Magnesium Direct Bilirubin AST ALT Alkaline Phosphatase Lactate Dehydrogenase Troponin T C-Reactive Protein Total Protein Albumin Prealbumin Triglycerides Cholesterol LDL Cholesterol Direct HDL Cholesterol PTH Intact Urine pH Urine WBC (Auto) Urine Creatinine Urine Total Protein Fluid Total Protein Vancomycin Trough Rheumatoid Factor Complement C4 Miscellaneous Test Crossmatch 10/20/16 10/20/16 10/20/16 06:00 11:49 16:00 WBC 19.7 H RBC 2.51 L Hgb 7.7 L Hct 23.5 L MCV MCH MCHC RDW 17.5 H Plt Count Lymph % (Auto) [place] % (Auto) Lymph # [place] # Baso # Seg Neutrophils % Seg Neuts % (Manual) Lymphocytes % (Manual) Monocytes % (Manual) Eosinophils % (Manual) Basophils % (Manual) Nucleated RBC % Seg Neutrophils # Seg Neutrophils # Man Lymphocytes # (Manual) Monocytes # (Manual) Eosinophils # (Manual) Basophils # (Manual) PT INR Fibrinogen dRVVT Confirm Interp Factor V Activity POC ABG pH POC ABG pCO2 POC ABG pO2 ABG pO2 ABG HCO3 ABG Base Excess ABG Hemoglobin Oxyhemoglobin Sodium Potassium Chloride Carbon Dioxide BUN Creatinine Glucose POC Glucose 117 H Lactic Acid Calcium Phosphorus Magnesium Direct Bilirubin AST ALT Alkaline Phosphatase Lactate Dehydrogenase Troponin T C-Reactive Protein Total Protein Albumin Prealbumin Triglycerides Cholesterol LDL Cholesterol Direct HDL Cholesterol PTH Intact Urine pH Urine WBC (Auto) Urine Creatinine Urine Total Protein Fluid Total Protein Vancomycin Trough Rheumatoid Factor Complement C4 Miscellaneous Test Flexitest 1 H Crossmatch 10/20/16 10/20/16 10/21/16 18:36 23:39 04:00 WBC RBC Hgb Hct MCV MCH MCHC RDW Plt Count Lymph % (Auto) [place] % (Auto) Lymph # [place] # Baso # Seg Neutrophils % Seg Neuts % (Manual) Lymphocytes % (Manual) Monocytes % (Manual) Eosinophils % (Manual) Basophils % (Manual) Nucleated RBC % Seg Neutrophils # Seg Neutrophils # Man Lymphocytes # (Manual) Monocytes # (Manual) Eosinophils # (Manual) Basophils # (Manual) PT INR Fibrinogen dRVVT Confirm Interp Factor V Activity POC ABG pH POC ABG pCO2 POC ABG pO2 ABG pO2 ABG HCO3 ABG Base Excess ABG Hemoglobin Oxyhemoglobin Sodium Potassium 5.4 H D Chloride Carbon Dioxide 15 L BUN 110 H Creatinine 3.0 H Glucose POC Glucose 127 H 114 H Lactic Acid Calcium Phosphorus Magnesium Direct Bilirubin AST ALT Alkaline Phosphatase Lactate Dehydrogenase Troponin T C-Reactive Protein Total Protein Albumin Prealbumin Triglycerides Cholesterol LDL Cholesterol Direct HDL Cholesterol PTH Intact Urine pH Urine WBC (Auto) Urine Creatinine Urine Total Protein Fluid Total Protein Vancomycin Trough Rheumatoid Factor Complement C4 Miscellaneous Test Crossmatch 10/21/16 10/21/16 10/22/16 05:54 23:46 05:18 WBC RBC Hgb Hct MCV MCH MCHC RDW Plt Count Lymph % (Auto) [place] % (Auto) Lymph # [place] # Baso # Seg Neutrophils % Seg Neuts % (Manual) Lymphocytes % (Manual) Monocytes % (Manual) Eosinophils % (Manual) Basophils % (Manual) Nucleated RBC % Seg Neutrophils # Seg Neutrophils # Man Lymphocytes # (Manual) Monocytes # (Manual) Eosinophils # (Manual) Basophils # (Manual) PT INR Fibrinogen dRVVT Confirm Interp Factor V Activity POC ABG pH POC ABG pCO2 POC ABG pO2 ABG pO2 ABG HCO3 ABG Base Excess ABG Hemoglobin Oxyhemoglobin Sodium Potassium Chloride Carbon Dioxide BUN Creatinine Glucose POC Glucose 119 H 108 H 109 H Lactic Acid Calcium Phosphorus Magnesium Direct Bilirubin AST ALT Alkaline Phosphatase Lactate Dehydrogenase Troponin T C-Reactive Protein Total Protein Albumin Prealbumin Triglycerides Cholesterol LDL Cholesterol Direct HDL Cholesterol PTH Intact Urine pH Urine WBC (Auto) Urine Creatinine Urine Total Protein Fluid Total Protein Vancomycin Trough Rheumatoid Factor Complement C4 Miscellaneous Test Crossmatch 10/22/16 10/22/16 10/22/16 06:40 06:40 06:40 WBC 14.0 H RBC 2.03 L Hgb 7.0 L Hct 20.5 L MCV 98 H MCH 34 H MCHC 35 H RDW 17.8 H Plt Count Lymph % (Auto) [place] % (Auto) 9.9 H Lymph # [place] # 1.4 H Baso # 0.2 H Seg Neutrophils % 72.0 H Seg Neuts % (Manual) Lymphocytes % (Manual) Monocytes % (Manual) Eosinophils % (Manual) Basophils % (Manual) Nucleated RBC % Seg Neutrophils # 10.0 H Seg Neutrophils # Man Lymphocytes # (Manual) Monocytes # (Manual) Eosinophils # (Manual) Basophils # (Manual) PT INR Fibrinogen dRVVT Confirm Interp Factor V Activity POC ABG pH POC ABG pCO2 POC ABG pO2 ABG pO2 ABG HCO3 ABG Base Excess ABG Hemoglobin Oxyhemoglobin Sodium 130 L D Potassium Chloride 92.4 L Carbon Dioxide 20 L BUN 50 H Creatinine 1.6 H Glucose 589 H* POC Glucose Lactic Acid Calcium 7.8 L D Phosphorus Magnesium 1.60 L Direct Bilirubin AST ALT Alkaline Phosphatase Lactate Dehydrogenase Troponin T C-Reactive Protein Total Protein Albumin Prealbumin Triglycerides Cholesterol LDL Cholesterol Direct HDL Cholesterol PTH Intact Urine pH Urine WBC (Auto) Urine Creatinine Urine Total Protein Fluid Total Protein Vancomycin Trough Rheumatoid Factor Complement C4 Miscellaneous Test Crossmatch 10/22/16 10/22/16 10/22/16 11:39 16:44 23:36 WBC RBC Hgb Hct MCV MCH MCHC RDW Plt Count Lymph % (Auto) [place] % (Auto) Lymph # [place] # Baso # Seg Neutrophils % Seg Neuts % (Manual) Lymphocytes % (Manual) Monocytes % (Manual) Eosinophils % (Manual) Basophils % (Manual) Nucleated RBC % Seg Neutrophils # Seg Neutrophils # Man Lymphocytes # (Manual) Monocytes # (Manual) Eosinophils # (Manual) Basophils # (Manual) PT INR Fibrinogen dRVVT Confirm Interp Factor V Activity POC ABG pH POC ABG pCO2 POC ABG pO2 ABG pO2 ABG HCO3 ABG Base Excess ABG Hemoglobin Oxyhemoglobin Sodium Potassium Chloride Carbon Dioxide BUN Creatinine Glucose POC Glucose 142 H 163 H 123 H Lactic Acid Calcium Phosphorus Magnesium Direct Bilirubin AST ALT Alkaline Phosphatase Lactate Dehydrogenase Troponin T C-Reactive Protein Total Protein Albumin Prealbumin Triglycerides Cholesterol LDL Cholesterol Direct HDL Cholesterol PTH Intact Urine pH Urine WBC (Auto) Urine Creatinine Urine Total Protein Fluid Total Protein Vancomycin Trough Rheumatoid Factor Complement C4 Miscellaneous Test Crossmatch 10/23/16 10/23/16 10/23/16 04:58 06:00 12:12 WBC RBC Hgb Hct MCV MCH MCHC RDW Plt Count Lymph % (Auto) [place] % (Auto) Lymph # [place] # Baso # Seg Neutrophils % Seg Neuts % (Manual) Lymphocytes % (Manual) Monocytes % (Manual) Eosinophils % (Manual) Basophils % (Manual) Nucleated RBC % Seg Neutrophils # Seg Neutrophils # Man Lymphocytes # (Manual) Monocytes # (Manual) Eosinophils # (Manual) Basophils # (Manual) PT INR Fibrinogen dRVVT Confirm Interp Factor V Activity POC ABG pH POC ABG pCO2 POC ABG pO2 ABG pO2 ABG HCO3 ABG Base Excess ABG Hemoglobin Oxyhemoglobin Sodium 133 L Potassium 3.5 L Chloride 96.1 L Carbon Dioxide 18 L BUN 76 H Creatinine 2.1 H Glucose POC Glucose 133 H 138 H Lactic Acid Calcium 8.3 L Phosphorus Magnesium Direct Bilirubin AST ALT Alkaline Phosphatase Lactate Dehydrogenase Troponin T C-Reactive Protein Total Protein Albumin Prealbumin Triglycerides Cholesterol LDL Cholesterol Direct HDL Cholesterol PTH Intact Urine pH Urine WBC (Auto) Urine Creatinine Urine Total Protein Fluid Total Protein Vancomycin Trough Rheumatoid Factor Complement C4 Miscellaneous Test Crossmatch 10/23/16 10/23/16 10/24/16 16:53 23:37 04:00 WBC RBC Hgb Hct MCV MCH MCHC RDW Plt Count Lymph % (Auto) [place] % (Auto) Lymph # [place] # Baso # Seg Neutrophils % Seg Neuts % (Manual) Lymphocytes % (Manual) Monocytes % (Manual) Eosinophils % (Manual) Basophils % (Manual) Nucleated RBC % Seg Neutrophils # Seg Neutrophils # Man Lymphocytes # (Manual) Monocytes # (Manual) Eosinophils # (Manual) Basophils # (Manual) PT INR Fibrinogen dRVVT Confirm Interp Factor V Activity POC ABG pH POC ABG pCO2 POC ABG pO2 ABG pO2 ABG HCO3 ABG Base Excess ABG Hemoglobin Oxyhemoglobin Sodium 131 L Potassium Chloride 94.5 L Carbon Dioxide 19 L BUN 97 H Creatinine 2.6 H Glucose 110 H POC Glucose 125 H 123 H Lactic Acid Calcium 8.3 L Phosphorus Magnesium Direct Bilirubin AST ALT Alkaline Phosphatase Lactate Dehydrogenase Troponin T C-Reactive Protein Total Protein Albumin Prealbumin Triglycerides Cholesterol LDL Cholesterol Direct HDL Cholesterol PTH Intact Urine pH Urine WBC (Auto) Urine Creatinine Urine Total Protein Fluid Total Protein Vancomycin Trough Rheumatoid Factor Complement C4 Miscellaneous Test Crossmatch 10/24/16 10/24/16 10/24/16 07:49 11:39 17:52 WBC RBC Hgb 6.0 L Hct 19.7 L* MCV MCH MCHC RDW Plt Count Lymph % (Auto) [place] % (Auto) Lymph # [place] # Baso # Seg Neutrophils % Seg Neuts % (Manual) Lymphocytes % (Manual) Monocytes % (Manual) Eosinophils % (Manual) Basophils % (Manual) Nucleated RBC % Seg Neutrophils # Seg Neutrophils # Man Lymphocytes # (Manual) Monocytes # (Manual) Eosinophils # (Manual) Basophils # (Manual) PT INR Fibrinogen dRVVT Confirm Interp Factor V Activity POC ABG pH POC ABG pCO2 POC ABG pO2 ABG pO2 ABG HCO3 ABG Base Excess ABG Hemoglobin Oxyhemoglobin Sodium Potassium Chloride Carbon Dioxide BUN Creatinine Glucose POC Glucose 106 H 158 H Lactic Acid Calcium Phosphorus Magnesium Direct Bilirubin AST ALT Alkaline Phosphatase Lactate Dehydrogenase Troponin T C-Reactive Protein Total Protein Albumin Prealbumin Triglycerides Cholesterol LDL Cholesterol Direct HDL Cholesterol PTH Intact Urine pH Urine WBC (Auto) Urine Creatinine Urine Total Protein Fluid Total Protein Vancomycin Trough Rheumatoid Factor Complement C4 Miscellaneous Test Crossmatch 10/24/16 10/24/16 10/24/16 20:00 22:27 Unknown WBC RBC Hgb 9.4 L D Hct 27.5 L D MCV MCH MCHC RDW Plt Count Lymph % (Auto) [place] % (Auto) Lymph # [place] # Baso # Seg Neutrophils % Seg Neuts % (Manual) Lymphocytes % (Manual) Monocytes % (Manual) Eosinophils % (Manual) Basophils % (Manual) Nucleated RBC % Seg Neutrophils # Seg Neutrophils # Man Lymphocytes # (Manual) Monocytes # (Manual) Eosinophils # (Manual) Basophils # (Manual) PT INR Fibrinogen dRVVT Confirm Interp Factor V Activity POC ABG pH POC ABG pCO2 POC ABG pO2 ABG pO2 ABG HCO3 ABG Base Excess ABG Hemoglobin Oxyhemoglobin Sodium Potassium Chloride Carbon Dioxide BUN Creatinine Glucose POC Glucose 125 H Lactic Acid Calcium Phosphorus Magnesium Direct Bilirubin AST ALT Alkaline Phosphatase Lactate Dehydrogenase Troponin T C-Reactive Protein Total Protein Albumin Prealbumin Triglycerides Cholesterol LDL Cholesterol Direct HDL Cholesterol PTH Intact Urine pH Urine WBC (Auto) Urine Creatinine Urine Total Protein Fluid Total Protein Vancomycin Trough Rheumatoid Factor Complement C4 Miscellaneous Test Crossmatch See Detail 10/25/16 10/25/16 10/25/16 04:00 04:00 04:00 WBC 14.2 H RBC 2.98 L Hgb 9.0 L Hct 26.2 L MCV MCH MCHC RDW 16.6 H Plt Count Lymph % (Auto) [place] % (Auto) 10.7 H Lymph # [place] # 1.5 H Baso # Seg Neutrophils % 73.6 H Seg Neuts % (Manual) Lymphocytes % (Manual) Monocytes % (Manual) Eosinophils % (Manual) Basophils % (Manual) Nucleated RBC % Seg Neutrophils # 10.5 H Seg Neutrophils # Man Lymphocytes # (Manual) Monocytes # (Manual) Eosinophils # (Manual) Basophils # (Manual) PT INR Fibrinogen dRVVT Confirm Interp Factor V Activity POC ABG pH POC ABG pCO2 POC ABG pO2 ABG pO2 ABG HCO3 ABG Base Excess ABG Hemoglobin Oxyhemoglobin Sodium 132 L Potassium Chloride 94.7 L Carbon Dioxide BUN 51 H Creatinine 1.6 H Glucose 130 H POC Glucose Lactic Acid Calcium 8.3 L Phosphorus 1.60 L D Magnesium Direct Bilirubin AST ALT Alkaline Phosphatase Lactate Dehydrogenase Troponin T C-Reactive Protein Total Protein Albumin Prealbumin Triglycerides Cholesterol LDL Cholesterol Direct HDL Cholesterol PTH Intact Urine pH Urine WBC (Auto) Urine Creatinine Urine Total Protein Fluid Total Protein Vancomycin Trough Rheumatoid Factor Complement C4 Miscellaneous Test Crossmatch 10/25/16 10/25/16 10/25/16 04:32 11:48 17:22 WBC RBC Hgb Hct MCV MCH MCHC RDW Plt Count Lymph % (Auto) [place] % (Auto) Lymph # [place] # Baso # Seg Neutrophils % Seg Neuts % (Manual) Lymphocytes % (Manual) Monocytes % (Manual) Eosinophils % (Manual) Basophils % (Manual) Nucleated RBC % Seg Neutrophils # Seg Neutrophils # Man Lymphocytes # (Manual) Monocytes # (Manual) Eosinophils # (Manual) Basophils # (Manual) PT INR Fibrinogen dRVVT Confirm Interp Factor V Activity POC ABG pH POC ABG pCO2 POC ABG pO2 ABG pO2 ABG HCO3 ABG Base Excess ABG Hemoglobin Oxyhemoglobin Sodium Potassium Chloride Carbon Dioxide BUN Creatinine Glucose POC Glucose 124 H 171 H 120 H Lactic Acid Calcium Phosphorus Magnesium Direct Bilirubin AST ALT Alkaline Phosphatase Lactate Dehydrogenase Troponin T C-Reactive Protein Total Protein Albumin Prealbumin Triglycerides Cholesterol LDL Cholesterol Direct HDL Cholesterol PTH Intact Urine pH Urine WBC (Auto) Urine Creatinine Urine Total Protein Fluid Total Protein Vancomycin Trough Rheumatoid Factor Complement C4 Miscellaneous Test Crossmatch 10/26/16 10/26/16 10/26/16 04:54 07:06 07:06 WBC 16.9 H RBC 3.06 L Hgb 9.1 L Hct 26.9 L MCV MCH MCHC RDW 16.9 H Plt Count Lymph % (Auto) [place] % (Auto) Lymph # [place] # Baso # Seg Neutrophils % Seg Neuts % (Manual) 71.0 H Lymphocytes % (Manual) 5.0 L Monocytes % (Manual) 12.0 H Eosinophils % (Manual) Basophils % (Manual) Nucleated RBC % Seg Neutrophils # Seg Neutrophils # Man 12.0 H Lymphocytes # (Manual) 0.8 L Monocytes # (Manual) 2.0 H Eosinophils # (Manual) Basophils # (Manual) PT INR Fibrinogen dRVVT Confirm Interp Factor V Activity POC ABG pH POC ABG pCO2 POC ABG pO2 ABG pO2 ABG HCO3 ABG Base Excess ABG Hemoglobin Oxyhemoglobin Sodium 135 L Potassium Chloride 97.1 L Carbon Dioxide BUN 73 H Creatinine 2.2 H Glucose 117 H POC Glucose 123 H Lactic Acid Calcium Phosphorus 1.70 L Magnesium Direct Bilirubin AST ALT Alkaline Phosphatase Lactate Dehydrogenase Troponin T C-Reactive Protein Total Protein Albumin Prealbumin Triglycerides Cholesterol LDL Cholesterol Direct HDL Cholesterol PTH Intact Urine pH Urine WBC (Auto) Urine Creatinine Urine Total Protein Fluid Total Protein Vancomycin Trough Rheumatoid Factor Complement C4 Miscellaneous Test Crossmatch 10/26/16 10/26/16 10/26/16 12:12 17:29 23:42 WBC RBC Hgb Hct MCV MCH MCHC RDW Plt Count Lymph % (Auto) [place] % (Auto) Lymph # [place] # Baso # Seg Neutrophils % Seg Neuts % (Manual) Lymphocytes % (Manual) Monocytes % (Manual) Eosinophils % (Manual) Basophils % (Manual) Nucleated RBC % Seg Neutrophils # Seg Neutrophils # Man Lymphocytes # (Manual) Monocytes # (Manual) Eosinophils # (Manual) Basophils # (Manual) PT INR Fibrinogen dRVVT Confirm Interp Factor V Activity POC ABG pH POC ABG pCO2 POC ABG pO2 ABG pO2 ABG HCO3 ABG Base Excess ABG Hemoglobin Oxyhemoglobin Sodium Potassium Chloride Carbon Dioxide BUN Creatinine Glucose POC Glucose 126 H 161 H 118 H Lactic Acid Calcium Phosphorus Magnesium Direct Bilirubin AST ALT Alkaline Phosphatase Lactate Dehydrogenase Troponin T C-Reactive Protein Total Protein Albumin Prealbumin Triglycerides Cholesterol LDL Cholesterol Direct HDL Cholesterol PTH Intact Urine pH Urine WBC (Auto) Urine Creatinine Urine Total Protein Fluid Total Protein Vancomycin Trough Rheumatoid Factor Complement C4 Miscellaneous Test Crossmatch 10/27/16 10/27/16 10/27/16 05:03 06:30 06:30 WBC 13.9 H RBC 3.09 L Hgb 9.2 L Hct 27.5 L MCV MCH MCHC RDW 17.0 H Plt Count Lymph % (Auto) [place] % (Auto) Lymph # [place] # Baso # Seg Neutrophils % Seg Neuts % (Manual) 78.0 H Lymphocytes % (Manual) Monocytes % (Manual) Eosinophils % (Manual) Basophils % (Manual) Nucleated RBC % 2.0 H Seg Neutrophils # Seg Neutrophils # Man 10.8 H Lymphocytes # (Manual) Monocytes # (Manual) 1.0 H Eosinophils # (Manual) Basophils # (Manual) PT INR Fibrinogen dRVVT Confirm Interp Factor V Activity POC ABG pH POC ABG pCO2 POC ABG pO2 ABG pO2 ABG HCO3 ABG Base Excess ABG Hemoglobin Oxyhemoglobin Sodium Potassium Chloride Carbon Dioxide BUN 40 H Creatinine 1.5 H Glucose 135 H POC Glucose 107 H Lactic Acid Calcium 8.3 L Phosphorus 1.30 L D Magnesium Direct Bilirubin AST ALT Alkaline Phosphatase Lactate Dehydrogenase Troponin T C-Reactive Protein Total Protein Albumin Prealbumin Triglycerides Cholesterol LDL Cholesterol Direct HDL Cholesterol PTH Intact Urine pH Urine WBC (Auto) Urine Creatinine Urine Total Protein Fluid Total Protein Vancomycin Trough Rheumatoid Factor Complement C4 Miscellaneous Test Crossmatch 10/27/16 10/27/16 10/27/16 13:27 18:07 23:40 WBC RBC Hgb Hct MCV MCH MCHC RDW Plt Count Lymph % (Auto) [place] % (Auto) Lymph # [place] # Baso # Seg Neutrophils % Seg Neuts % (Manual) Lymphocytes % (Manual) Monocytes % (Manual) Eosinophils % (Manual) Basophils % (Manual) Nucleated RBC % Seg Neutrophils # Seg Neutrophils # Man Lymphocytes # (Manual) Monocytes # (Manual) Eosinophils # (Manual) Basophils # (Manual) PT INR Fibrinogen dRVVT Confirm Interp Factor V Activity POC ABG pH POC ABG pCO2 POC ABG pO2 ABG pO2 ABG HCO3 ABG Base Excess ABG Hemoglobin Oxyhemoglobin Sodium Potassium Chloride Carbon Dioxide BUN Creatinine Glucose POC Glucose 117 H 121 H 118 H Lactic Acid Calcium Phosphorus Magnesium Direct Bilirubin AST ALT Alkaline Phosphatase Lactate Dehydrogenase Troponin T C-Reactive Protein Total Protein Albumin Prealbumin Triglycerides Cholesterol LDL Cholesterol Direct HDL Cholesterol PTH Intact Urine pH Urine WBC (Auto) Urine Creatinine Urine Total Protein Fluid Total Protein Vancomycin Trough Rheumatoid Factor Complement C4 Miscellaneous Test Crossmatch 10/28/16 10/28/16 10/28/16 05:48 06:45 06:45 WBC 14.7 H RBC 3.05 L Hgb 9.0 L Hct 26.9 L MCV MCH MCHC RDW 16.8 H Plt Count Lymph % (Auto) 8.2 L [place] % (Auto) 8.4 H Lymph # [place] # 1.2 H Baso # Seg Neutrophils % 81.9 H Seg Neuts % (Manual) Lymphocytes % (Manual) Monocytes % (Manual) Eosinophils % (Manual) Basophils % (Manual) Nucleated RBC % Seg Neutrophils # 12.1 H Seg Neutrophils # Man Lymphocytes # (Manual) Monocytes # (Manual) Eosinophils # (Manual) Basophils # (Manual) PT INR Fibrinogen dRVVT Confirm Interp Factor V Activity POC ABG pH POC ABG pCO2 POC ABG pO2 ABG pO2 ABG HCO3 ABG Base Excess ABG Hemoglobin Oxyhemoglobin Sodium Potassium Chloride Carbon Dioxide BUN 60 H Creatinine 1.9 H Glucose 120 H POC Glucose 114 H Lactic Acid Calcium Phosphorus Magnesium Direct Bilirubin AST ALT Alkaline Phosphatase Lactate Dehydrogenase Troponin T C-Reactive Protein Total Protein Albumin Prealbumin Triglycerides Cholesterol LDL Cholesterol Direct HDL Cholesterol PTH Intact Urine pH Urine WBC (Auto) Urine Creatinine Urine Total Protein Fluid Total Protein Vancomycin Trough Rheumatoid Factor Complement C4 Miscellaneous Test Crossmatch 10/28/16 10/28/16 10/29/16 17:08 23:50 05:10 WBC RBC Hgb Hct MCV MCH MCHC RDW Plt Count Lymph % (Auto) [place] % (Auto) Lymph # [place] # Baso # Seg Neutrophils % Seg Neuts % (Manual) Lymphocytes % (Manual) Monocytes % (Manual) Eosinophils % (Manual) Basophils % (Manual) Nucleated RBC % Seg Neutrophils # Seg Neutrophils # Man Lymphocytes # (Manual) Monocytes # (Manual) Eosinophils # (Manual) Basophils # (Manual) PT INR Fibrinogen dRVVT Confirm Interp Factor V Activity POC ABG pH POC ABG pCO2 POC ABG pO2 ABG pO2 ABG HCO3 ABG Base Excess ABG Hemoglobin Oxyhemoglobin Sodium Potassium Chloride Carbon Dioxide BUN Creatinine Glucose POC Glucose 109 H 110 H 124 H Lactic Acid Calcium Phosphorus Magnesium Direct Bilirubin AST ALT Alkaline Phosphatase Lactate Dehydrogenase Troponin T C-Reactive Protein Total Protein Albumin Prealbumin Triglycerides Cholesterol LDL Cholesterol Direct HDL Cholesterol PTH Intact Urine pH Urine WBC (Auto) Urine Creatinine Urine Total Protein Fluid Total Protein Vancomycin Trough Rheumatoid Factor Complement C4 Miscellaneous Test Crossmatch 10/29/16 10/29/16 10/29/16 07:45 07:45 12:19 WBC 14.7 H RBC 3.15 L Hgb 9.3 L Hct 28.9 L MCV MCH MCHC RDW 17.0 H Plt Count Lymph % (Auto) 11.9 L [place] % (Auto) 8.6 H Lymph # [place] # 1.3 H Baso # Seg Neutrophils % 78.1 H Seg Neuts % (Manual) Lymphocytes % (Manual) Monocytes % (Manual) Eosinophils % (Manual) Basophils % (Manual) Nucleated RBC % Seg Neutrophils # 11.4 H Seg Neutrophils # Man Lymphocytes # (Manual) Monocytes # (Manual) Eosinophils # (Manual) Basophils # (Manual) PT INR Fibrinogen dRVVT Confirm Interp Factor V Activity POC ABG pH POC ABG pCO2 POC ABG pO2 ABG pO2 ABG HCO3 ABG Base Excess ABG Hemoglobin Oxyhemoglobin Sodium Potassium 5.1 H Chloride Carbon Dioxide 19 L BUN 78 H Creatinine 2.2 H Glucose 116 H POC Glucose 118 H Lactic Acid Calcium Phosphorus Magnesium Direct Bilirubin AST ALT Alkaline Phosphatase Lactate Dehydrogenase Troponin T C-Reactive Protein Total Protein Albumin Prealbumin Triglycerides Cholesterol LDL Cholesterol Direct HDL Cholesterol PTH Intact Urine pH Urine WBC (Auto) Urine Creatinine Urine Total Protein Fluid Total Protein Vancomycin Trough Rheumatoid Factor Complement C4 Miscellaneous Test Crossmatch 10/29/16 10/30/16 10/30/16 17:49 01:52 03:28 WBC RBC Hgb Hct MCV MCH MCHC RDW Plt Count Lymph % (Auto) [place] % (Auto) Lymph # [place] # Baso # Seg Neutrophils % Seg Neuts % (Manual) Lymphocytes % (Manual) Monocytes % (Manual) Eosinophils % (Manual) Basophils % (Manual) Nucleated RBC % Seg Neutrophils # Seg Neutrophils # Man Lymphocytes # (Manual) Monocytes # (Manual) Eosinophils # (Manual) Basophils # (Manual) PT INR Fibrinogen dRVVT Confirm Interp Factor V Activity POC ABG pH POC ABG pCO2 POC ABG pO2 ABG pO2 ABG HCO3 ABG Base Excess ABG Hemoglobin Oxyhemoglobin Sodium Potassium 5.4 H Chloride 97.5 L Carbon Dioxide 19 L BUN 90 H Creatinine 2.5 H Glucose POC Glucose 120 H 129 H Lactic Acid Calcium Phosphorus 5.20 H Magnesium Direct Bilirubin AST ALT Alkaline Phosphatase Lactate Dehydrogenase Troponin T C-Reactive Protein Total Protein Albumin Prealbumin Triglycerides Cholesterol LDL Cholesterol Direct HDL Cholesterol PTH Intact Urine pH Urine WBC (Auto) Urine Creatinine Urine Total Protein Fluid Total Protein Vancomycin Trough Rheumatoid Factor Complement C4 Miscellaneous Test Crossmatch 10/30/16 10/30/16 10/30/16 03:28 08:19 08:19 WBC 11.6 H 15.9 H RBC 2.75 L 2.82 L Hgb 7.9 L 8.3 L Hct 24.2 L 25.2 L MCV MCH MCHC RDW 16.7 H 17.2 H Plt Count Lymph % (Auto) [place] % (Auto) 9.8 H Lymph # [place] # 1.1 H Baso # Seg Neutrophils % 74.2 H Seg Neuts % (Manual) Lymphocytes % (Manual) Monocytes % (Manual) Eosinophils % (Manual) Basophils % (Manual) Nucleated RBC % Seg Neutrophils # 8.6 H Seg Neutrophils # Man Lymphocytes # (Manual) Monocytes # (Manual) Eosinophils # (Manual) Basophils # (Manual) PT INR Fibrinogen dRVVT Confirm Interp Factor V Activity POC ABG pH POC ABG pCO2 POC ABG pO2 ABG pO2 ABG HCO3 ABG Base Excess ABG Hemoglobin Oxyhemoglobin Sodium Potassium 5.3 H Chloride 97.4 L Carbon Dioxide 19 L BUN 93 H Creatinine 2.6 H Glucose POC Glucose Lactic Acid Calcium Phosphorus Magnesium Direct Bilirubin AST ALT Alkaline Phosphatase Lactate Dehydrogenase Troponin T C-Reactive Protein Total Protein Albumin Prealbumin Triglycerides Cholesterol LDL Cholesterol Direct HDL Cholesterol PTH Intact Urine pH Urine WBC (Auto) Urine Creatinine Urine Total Protein Fluid Total Protein Vancomycin Trough Rheumatoid Factor Complement C4 Miscellaneous Test Crossmatch 10/30/16 10/30/16 10/31/16 17:11 23:56 00:40 WBC RBC Hgb Hct MCV MCH MCHC RDW Plt Count Lymph % (Auto) [place] % (Auto) Lymph # [place] # Baso # Seg Neutrophils % Seg Neuts % (Manual) Lymphocytes % (Manual) Monocytes % (Manual) Eosinophils % (Manual) Basophils % (Manual) Nucleated RBC % Seg Neutrophils # Seg Neutrophils # Man Lymphocytes # (Manual) Monocytes # (Manual) Eosinophils # (Manual) Basophils # (Manual) PT INR Fibrinogen dRVVT Confirm Interp Factor V Activity POC ABG pH POC ABG pCO2 POC ABG pO2 ABG pO2 ABG HCO3 ABG Base Excess ABG Hemoglobin Oxyhemoglobin Sodium Potassium Chloride Carbon Dioxide BUN Creatinine Glucose POC Glucose 106 H 117 H 120 H Lactic Acid Calcium Phosphorus Magnesium Direct Bilirubin AST ALT Alkaline Phosphatase Lactate Dehydrogenase Troponin T C-Reactive Protein Total Protein Albumin Prealbumin Triglycerides Cholesterol LDL Cholesterol Direct HDL Cholesterol PTH Intact Urine pH Urine WBC (Auto) Urine Creatinine Urine Total Protein Fluid Total Protein Vancomycin Trough Rheumatoid Factor Complement C4 Miscellaneous Test Crossmatch 10/31/16 10/31/16 10/31/16 05:43 07:15 07:15 WBC 12.1 H RBC 2.63 L Hgb 7.7 L Hct 23.3 L MCV MCH MCHC RDW 16.7 H Plt Count Lymph % (Auto) 11.7 L [place] % (Auto) 7.7 H Lymph # [place] # 0.9 H Baso # Seg Neutrophils % 78.0 H Seg Neuts % (Manual) Lymphocytes % (Manual) Monocytes % (Manual) Eosinophils % (Manual) Basophils % (Manual) Nucleated RBC % Seg Neutrophils # 9.4 H Seg Neutrophils # Man Lymphocytes # (Manual) Monocytes # (Manual) Eosinophils # (Manual) Basophils # (Manual) PT INR Fibrinogen dRVVT Confirm Interp Factor V Activity POC ABG pH POC ABG pCO2 POC ABG pO2 ABG pO2 ABG HCO3 ABG Base Excess ABG Hemoglobin Oxyhemoglobin Sodium Potassium Chloride 96.4 L Carbon Dioxide 21 L BUN 99 H Creatinine 2.6 H Glucose 144 H POC Glucose 125 H Lactic Acid Calcium Phosphorus 4.80 H Magnesium Direct Bilirubin AST ALT Alkaline Phosphatase Lactate Dehydrogenase Troponin T C-Reactive Protein Total Protein Albumin Prealbumin Triglycerides Cholesterol LDL Cholesterol Direct HDL Cholesterol PTH Intact Urine pH Urine WBC (Auto) Urine Creatinine Urine Total Protein Fluid Total Protein Vancomycin Trough Rheumatoid Factor Complement C4 Miscellaneous Test Crossmatch 10/31/16 10/31/16 11/01/16 11:46 18:34 00:20 WBC RBC Hgb Hct MCV MCH MCHC RDW Plt Count Lymph % (Auto) [place] % (Auto) Lymph # [place] # Baso # Seg Neutrophils % Seg Neuts % (Manual) Lymphocytes % (Manual) Monocytes % (Manual) Eosinophils % (Manual) Basophils % (Manual) Nucleated RBC % Seg Neutrophils # Seg Neutrophils # Man Lymphocytes # (Manual) Monocytes # (Manual) Eosinophils # (Manual) Basophils # (Manual) PT INR Fibrinogen dRVVT Confirm Interp Factor V Activity POC ABG pH POC ABG pCO2 POC ABG pO2 ABG pO2 ABG HCO3 ABG Base Excess ABG Hemoglobin Oxyhemoglobin Sodium Potassium Chloride Carbon Dioxide BUN Creatinine Glucose POC Glucose 159 H 140 H 132 H Lactic Acid Calcium Phosphorus Magnesium Direct Bilirubin AST ALT Alkaline Phosphatase Lactate Dehydrogenase Troponin T C-Reactive Protein Total Protein Albumin Prealbumin Triglycerides Cholesterol LDL Cholesterol Direct HDL Cholesterol PTH Intact Urine pH Urine WBC (Auto) Urine Creatinine Urine Total Protein Fluid Total Protein Vancomycin Trough Rheumatoid Factor Complement C4 Miscellaneous Test Crossmatch 11/01/16 11/01/16 11/01/16 04:55 04:55 06:11 WBC 11.2 H RBC 2.68 L Hgb 7.5 L Hct 23.7 L MCV MCH MCHC RDW 16.1 H Plt Count Lymph % (Auto) [place] % (Auto) 9.8 H Lymph # [place] # 1.1 H Baso # Seg Neutrophils % 70.8 H Seg Neuts % (Manual) Lymphocytes % (Manual) Monocytes % (Manual) Eosinophils % (Manual) Basophils % (Manual) Nucleated RBC % Seg Neutrophils # 7.9 H Seg Neutrophils # Man Lymphocytes # (Manual) Monocytes # (Manual) Eosinophils # (Manual) Basophils # (Manual) PT INR Fibrinogen dRVVT Confirm Interp Factor V Activity POC ABG pH POC ABG pCO2 POC ABG pO2 ABG pO2 ABG HCO3 ABG Base Excess ABG Hemoglobin Oxyhemoglobin Sodium Potassium 3.3 L D Chloride Carbon Dioxide BUN 61 H Creatinine 1.9 H Glucose 114 H POC Glucose 115 H Lactic Acid Calcium Phosphorus 1.80 L D Magnesium Direct Bilirubin AST ALT Alkaline Phosphatase Lactate Dehydrogenase Troponin T C-Reactive Protein Total Protein Albumin Prealbumin Triglycerides Cholesterol LDL Cholesterol Direct HDL Cholesterol PTH Intact Urine pH Urine WBC (Auto) Urine Creatinine Urine Total Protein Fluid Total Protein Vancomycin Trough Rheumatoid Factor Complement C4 Miscellaneous Test Crossmatch 11/01/16 11/01/16 11/01/16 12:29 18:23 23:58 WBC RBC Hgb Hct MCV MCH MCHC RDW Plt Count Lymph % (Auto) [place] % (Auto) Lymph # [place] # Baso # Seg Neutrophils % Seg Neuts % (Manual) Lymphocytes % (Manual) Monocytes % (Manual) Eosinophils % (Manual) Basophils % (Manual) Nucleated RBC % Seg Neutrophils # Seg Neutrophils # Man Lymphocytes # (Manual) Monocytes # (Manual) Eosinophils # (Manual) Basophils # (Manual) PT INR Fibrinogen dRVVT Confirm Interp Factor V Activity POC ABG pH POC ABG pCO2 POC ABG pO2 ABG pO2 ABG HCO3 ABG Base Excess ABG Hemoglobin Oxyhemoglobin Sodium Potassium Chloride Carbon Dioxide BUN Creatinine Glucose POC Glucose 142 H 143 H 128 H Lactic Acid Calcium Phosphorus Magnesium Direct Bilirubin AST ALT Alkaline Phosphatase Lactate Dehydrogenase Troponin T C-Reactive Protein Total Protein Albumin Prealbumin Triglycerides Cholesterol LDL Cholesterol Direct HDL Cholesterol PTH Intact Urine pH Urine WBC (Auto) Urine Creatinine Urine Total Protein Fluid Total Protein Vancomycin Trough Rheumatoid Factor Complement C4 Miscellaneous Test Crossmatch 11/02/16 11/02/16 11/02/16 04:16 05:29 11:58 WBC RBC Hgb Hct MCV MCH MCHC RDW Plt Count Lymph % (Auto) [place] % (Auto) Lymph # [place] # Baso # Seg Neutrophils % Seg Neuts % (Manual) Lymphocytes % (Manual) Monocytes % (Manual) Eosinophils % (Manual) Basophils % (Manual) Nucleated RBC % Seg Neutrophils # Seg Neutrophils # Man Lymphocytes # (Manual) Monocytes # (Manual) Eosinophils # (Manual) Basophils # (Manual) PT INR Fibrinogen dRVVT Confirm Interp Factor V Activity POC ABG pH POC ABG pCO2 POC ABG pO2 ABG pO2 ABG HCO3 ABG Base Excess ABG Hemoglobin Oxyhemoglobin Sodium Potassium 3.1 L Chloride Carbon Dioxide BUN 73 H Creatinine 2.3 H Glucose 112 H POC Glucose 135 H 149 H Lactic Acid Calcium Phosphorus Magnesium Direct Bilirubin AST ALT Alkaline Phosphatase Lactate Dehydrogenase Troponin T C-Reactive Protein Total Protein Albumin Prealbumin Triglycerides Cholesterol LDL Cholesterol Direct HDL Cholesterol PTH Intact Urine pH Urine WBC (Auto) Urine Creatinine Urine Total Protein Fluid Total Protein Vancomycin Trough Rheumatoid Factor Complement C4 Miscellaneous Test Crossmatch 11/02/16 11/02/16 11/03/16 17:42 22:54 06:00 WBC RBC Hgb Hct MCV MCH MCHC RDW Plt Count Lymph % (Auto) [place] % (Auto) Lymph # [place] # Baso # Seg Neutrophils % Seg Neuts % (Manual) Lymphocytes % (Manual) Monocytes % (Manual) Eosinophils % (Manual) Basophils % (Manual) Nucleated RBC % Seg Neutrophils # Seg Neutrophils # Man Lymphocytes # (Manual) Monocytes # (Manual) Eosinophils # (Manual) Basophils # (Manual) PT INR Fibrinogen dRVVT Confirm Interp Factor V Activity POC ABG pH POC ABG pCO2 POC ABG pO2 ABG pO2 ABG HCO3 ABG Base Excess ABG Hemoglobin Oxyhemoglobin Sodium Potassium Chloride 96.7 L Carbon Dioxide BUN 41 H Creatinine 1.5 H Glucose 145 H POC Glucose 182 H 115 H Lactic Acid Calcium Phosphorus 1.60 L D Magnesium 1.50 L Direct Bilirubin AST ALT Alkaline Phosphatase Lactate Dehydrogenase Troponin T C-Reactive Protein Total Protein Albumin Prealbumin Triglycerides Cholesterol LDL Cholesterol Direct HDL Cholesterol PTH Intact Urine pH Urine WBC (Auto) Urine Creatinine Urine Total Protein Fluid Total Protein Vancomycin Trough Rheumatoid Factor Complement C4 Miscellaneous Test Crossmatch 11/03/16 11/03/16 11/03/16 11:53 17:45 23:37 WBC RBC Hgb Hct MCV MCH MCHC RDW Plt Count Lymph % (Auto) [place] % (Auto) Lymph # [place] # Baso # Seg Neutrophils % Seg Neuts % (Manual) Lymphocytes % (Manual) Monocytes % (Manual) Eosinophils % (Manual) Basophils % (Manual) Nucleated RBC % Seg Neutrophils # Seg Neutrophils # Man Lymphocytes # (Manual) Monocytes # (Manual) Eosinophils # (Manual) Basophils # (Manual) PT INR Fibrinogen dRVVT Confirm Interp Factor V Activity POC ABG pH POC ABG pCO2 POC ABG pO2 ABG pO2 ABG HCO3 ABG Base Excess ABG Hemoglobin Oxyhemoglobin Sodium Potassium Chloride Carbon Dioxide BUN Creatinine Glucose POC Glucose 131 H 134 H 113 H Lactic Acid Calcium Phosphorus Magnesium Direct Bilirubin AST ALT Alkaline Phosphatase Lactate Dehydrogenase Troponin T C-Reactive Protein Total Protein Albumin Prealbumin Triglycerides Cholesterol LDL Cholesterol Direct HDL Cholesterol PTH Intact Urine pH Urine WBC (Auto) Urine Creatinine Urine Total Protein Fluid Total Protein Vancomycin Trough Rheumatoid Factor Complement C4 Miscellaneous Test Crossmatch 11/04/16 11/04/16 11/04/16 05:41 06:00 12:10 WBC RBC Hgb Hct MCV MCH MCHC RDW Plt Count Lymph % (Auto) [place] % (Auto) Lymph # [place] # Baso # Seg Neutrophils % Seg Neuts % (Manual) Lymphocytes % (Manual) Monocytes % (Manual) Eosinophils % (Manual) Basophils % (Manual) Nucleated RBC % Seg Neutrophils # Seg Neutrophils # Man Lymphocytes # (Manual) Monocytes # (Manual) Eosinophils # (Manual) Basophils # (Manual) PT INR Fibrinogen dRVVT Confirm Interp Factor V Activity POC ABG pH POC ABG pCO2 POC ABG pO2 ABG pO2 ABG HCO3 ABG Base Excess ABG Hemoglobin Oxyhemoglobin Sodium Potassium Chloride 96.7 L Carbon Dioxide BUN 52 H Creatinine 1.9 H Glucose 126 H POC Glucose 137 H 191 H Lactic Acid Calcium Phosphorus Magnesium Direct Bilirubin AST ALT Alkaline Phosphatase Lactate Dehydrogenase Troponin T C-Reactive Protein Total Protein Albumin Prealbumin Triglycerides Cholesterol LDL Cholesterol Direct HDL Cholesterol PTH Intact Urine pH Urine WBC (Auto) Urine Creatinine Urine Total Protein Fluid Total Protein Vancomycin Trough Rheumatoid Factor Complement C4 Miscellaneous Test Crossmatch 11/04/16 11/05/16 11/05/16 22:57 03:10 05:10 WBC RBC Hgb Hct MCV MCH MCHC RDW Plt Count Lymph % (Auto) [place] % (Auto) Lymph # [place] # Baso # Seg Neutrophils % Seg Neuts % (Manual) Lymphocytes % (Manual) Monocytes % (Manual) Eosinophils % (Manual) Basophils % (Manual) Nucleated RBC % Seg Neutrophils # Seg Neutrophils # Man Lymphocytes # (Manual) Monocytes # (Manual) Eosinophils # (Manual) Basophils # (Manual) PT INR Fibrinogen dRVVT Confirm Interp Factor V Activity POC ABG pH POC ABG pCO2 POC ABG pO2 ABG pO2 ABG HCO3 ABG Base Excess ABG Hemoglobin Oxyhemoglobin Sodium 136 L Potassium Chloride 97.2 L Carbon Dioxide BUN 32 H Creatinine 1.3 H Glucose 123 H POC Glucose 125 H 108 H Lactic Acid Calcium 7.8 L Phosphorus Magnesium Direct Bilirubin AST ALT Alkaline Phosphatase Lactate Dehydrogenase Troponin T C-Reactive Protein Total Protein Albumin Prealbumin Triglycerides Cholesterol LDL Cholesterol Direct HDL Cholesterol PTH Intact Urine pH Urine WBC (Auto) Urine Creatinine Urine Total Protein Fluid Total Protein Vancomycin Trough Rheumatoid Factor Complement C4 Miscellaneous Test Crossmatch 11/05/16 11/05/16 11/05/16 12:23 13:09 13:25 WBC RBC Hgb Hct MCV MCH MCHC RDW Plt Count Lymph % (Auto) [place] % (Auto) Lymph # [place] # Baso # Seg Neutrophils % Seg Neuts % (Manual) Lymphocytes % (Manual) Monocytes % (Manual) Eosinophils % (Manual) Basophils % (Manual) Nucleated RBC % Seg Neutrophils # Seg Neutrophils # Man Lymphocytes # (Manual) Monocytes # (Manual) Eosinophils # (Manual) Basophils # (Manual) PT INR Fibrinogen dRVVT Confirm Interp Factor V Activity POC ABG pH POC ABG pCO2 POC ABG pO2 ABG pO2 ABG HCO3 ABG Base Excess ABG Hemoglobin Oxyhemoglobin Sodium Potassium Chloride Carbon Dioxide BUN Creatinine Glucose POC Glucose 124 H Lactic Acid Calcium Phosphorus Magnesium Direct Bilirubin AST ALT Alkaline Phosphatase Lactate Dehydrogenase Troponin T C-Reactive Protein 11.40 H Total Protein Albumin Prealbumin Triglycerides Cholesterol LDL Cholesterol Direct HDL Cholesterol PTH Intact Urine pH 9.0 H Urine WBC (Auto) Urine Creatinine Urine Total Protein Fluid Total Protein Vancomycin Trough Rheumatoid Factor Complement C4 Miscellaneous Test Crossmatch 11/05/16 11/05/16 11/05/16 13:25 17:54 23:42 WBC RBC Hgb Hct MCV MCH MCHC RDW Plt Count Lymph % (Auto) [place] % (Auto) Lymph # [place] # Baso # Seg Neutrophils % Seg Neuts % (Manual) Lymphocytes % (Manual) Monocytes % (Manual) Eosinophils % (Manual) Basophils % (Manual) Nucleated RBC % Seg Neutrophils # Seg Neutrophils # Man Lymphocytes # (Manual) Monocytes # (Manual) Eosinophils # (Manual) Basophils # (Manual) PT INR Fibrinogen dRVVT Confirm Interp Factor V Activity POC ABG pH POC ABG pCO2 POC ABG pO2 ABG pO2 ABG HCO3 ABG Base Excess ABG Hemoglobin Oxyhemoglobin Sodium Potassium Chloride Carbon Dioxide BUN Creatinine Glucose POC Glucose 114 H 134 H Lactic Acid Calcium Phosphorus Magnesium Direct Bilirubin AST ALT Alkaline Phosphatase Lactate Dehydrogenase Troponin T C-Reactive Protein Total Protein Albumin Prealbumin Triglycerides Cholesterol LDL Cholesterol Direct HDL Cholesterol PTH Intact Urine pH Urine WBC (Auto) Urine Creatinine Urine Total Protein Fluid Total Protein Vancomycin Trough Rheumatoid Factor Complement C4 Miscellaneous Test Flexitest 1 H Crossmatch 11/06/16 11/06/16 11/06/16 04:56 06:25 06:25 WBC RBC 2.50 L Hgb 7.3 L Hct 22.5 L MCV MCH MCHC RDW 16.9 H Plt Count Lymph % (Auto) [place] % (Auto) 10.5 H Lymph # [place] # 1.1 H Baso # Seg Neutrophils % Seg Neuts % (Manual) Lymphocytes % (Manual) Monocytes % (Manual) Eosinophils % (Manual) Basophils % (Manual) Nucleated RBC % Seg Neutrophils # Seg Neutrophils # Man Lymphocytes # (Manual) Monocytes # (Manual) Eosinophils # (Manual) Basophils # (Manual) PT INR Fibrinogen dRVVT Confirm Interp Factor V Activity POC ABG pH POC ABG pCO2 POC ABG pO2 ABG pO2 ABG HCO3 ABG Base Excess ABG Hemoglobin Oxyhemoglobin Sodium Potassium 5.1 H Chloride 95.9 L Carbon Dioxide BUN 52 H Creatinine 1.8 H Glucose 117 H POC Glucose 120 H Lactic Acid Calcium Phosphorus Magnesium Direct Bilirubin AST 103 H ALT 77 H Alkaline Phosphatase 285 H Lactate Dehydrogenase Troponin T C-Reactive Protein Total Protein 6.2 L Albumin 1.8 L Prealbumin 0.180 L Triglycerides Cholesterol LDL Cholesterol Direct HDL Cholesterol PTH Intact Urine pH Urine WBC (Auto) Urine Creatinine Urine Total Protein Fluid Total Protein Vancomycin Trough Rheumatoid Factor Complement C4 Miscellaneous Test Crossmatch 11/06/16 11/06/16 11/06/16 11:56 17:14 23:52 WBC RBC Hgb Hct MCV MCH MCHC RDW Plt Count Lymph % (Auto) [place] % (Auto) Lymph # [place] # Baso # Seg Neutrophils % Seg Neuts % (Manual) Lymphocytes % (Manual) Monocytes % (Manual) Eosinophils % (Manual) Basophils % (Manual) Nucleated RBC % Seg Neutrophils # Seg Neutrophils # Man Lymphocytes # (Manual) Monocytes # (Manual) Eosinophils # (Manual) Basophils # (Manual) PT INR Fibrinogen dRVVT Confirm Interp Factor V Activity POC ABG pH POC ABG pCO2 POC ABG pO2 ABG pO2 ABG HCO3 ABG Base Excess ABG Hemoglobin Oxyhemoglobin Sodium Potassium Chloride Carbon Dioxide BUN Creatinine Glucose POC Glucose 141 H 125 H 130 H Lactic Acid Calcium Phosphorus Magnesium Direct Bilirubin AST ALT Alkaline Phosphatase Lactate Dehydrogenase Troponin T C-Reactive Protein Total Protein Albumin Prealbumin Triglycerides Cholesterol LDL Cholesterol Direct HDL Cholesterol PTH Intact Urine pH Urine WBC (Auto) Urine Creatinine Urine Total Protein Fluid Total Protein Vancomycin Trough Rheumatoid Factor Complement C4 Miscellaneous Test Crossmatch 11/07/16 11/07/16 11/07/16 06:30 06:30 09:37 WBC RBC 2.18 L Hgb 6.3 L Hct 19.7 L* MCV MCH MCHC RDW 16.8 H Plt Count Lymph % (Auto) [place] % (Auto) 10.0 H Lymph # [place] # 1.0 H Baso # Seg Neutrophils % Seg Neuts % (Manual) Lymphocytes % (Manual) Monocytes % (Manual) Eosinophils % (Manual) Basophils % (Manual) Nucleated RBC % Seg Neutrophils # Seg Neutrophils # Man Lymphocytes # (Manual) Monocytes # (Manual) Eosinophils # (Manual) Basophils # (Manual) PT INR Fibrinogen dRVVT Confirm Interp Factor V Activity POC ABG pH POC ABG pCO2 POC ABG pO2 ABG pO2 ABG HCO3 ABG Base Excess ABG Hemoglobin Oxyhemoglobin Sodium 135 L Potassium Chloride 95.6 L Carbon Dioxide BUN 70 H Creatinine 2.0 H Glucose 126 H POC Glucose Lactic Acid Calcium Phosphorus Magnesium Direct Bilirubin AST ALT Alkaline Phosphatase Lactate Dehydrogenase Troponin T C-Reactive Protein Total Protein Albumin Prealbumin Triglycerides Cholesterol LDL Cholesterol Direct HDL Cholesterol PTH Intact Urine pH Urine WBC (Auto) Urine Creatinine Urine Total Protein Fluid Total Protein Vancomycin Trough Rheumatoid Factor Complement C4 Miscellaneous Test Crossmatch See Detail 11/07/16 11/07/16 11/07/16 12:52 18:51 21:26 WBC RBC Hgb Hct MCV MCH MCHC RDW Plt Count Lymph % (Auto) [place] % (Auto) Lymph # [place] # Baso # Seg Neutrophils % Seg Neuts % (Manual) Lymphocytes % (Manual) Monocytes % (Manual) Eosinophils % (Manual) Basophils % (Manual) Nucleated RBC % Seg Neutrophils # Seg Neutrophils # Man Lymphocytes # (Manual) Monocytes # (Manual) Eosinophils # (Manual) Basophils # (Manual) PT INR Fibrinogen dRVVT Confirm Interp Factor V Activity POC ABG pH 7.523 H POC ABG pCO2 34.6 L POC ABG pO2 53 L ABG pO2 ABG HCO3 ABG Base Excess ABG Hemoglobin Oxyhemoglobin Sodium Potassium Chloride Carbon Dioxide BUN Creatinine Glucose POC Glucose 142 H 155 H Lactic Acid Calcium Phosphorus Magnesium Direct Bilirubin AST ALT Alkaline Phosphatase Lactate Dehydrogenase Troponin T C-Reactive Protein Total Protein Albumin Prealbumin Triglycerides Cholesterol LDL Cholesterol Direct HDL Cholesterol PTH Intact Urine pH Urine WBC (Auto) Urine Creatinine Urine Total Protein Fluid Total Protein Vancomycin Trough Rheumatoid Factor Complement C4 Miscellaneous Test Crossmatch 11/07/16 11/08/16 11/08/16 21:34 13:03 23:37 WBC RBC 2.63 L Hgb 7.7 L Hct 22.7 L MCV MCH MCHC RDW 17.0 H Plt Count Lymph % (Auto) [place] % (Auto) Lymph # [place] # Baso # Seg Neutrophils % Seg Neuts % (Manual) Lymphocytes % (Manual) Monocytes % (Manual) Eosinophils % (Manual) Basophils % (Manual) Nucleated RBC % Seg Neutrophils # Seg Neutrophils # Man Lymphocytes # (Manual) Monocytes # (Manual) Eosinophils # (Manual) Basophils # (Manual) PT INR Fibrinogen dRVVT Confirm Interp Factor V Activity POC ABG pH 7.478 H POC ABG pCO2 34.0 L POC ABG pO2 50 L ABG pO2 ABG HCO3 ABG Base Excess ABG Hemoglobin Oxyhemoglobin Sodium Potassium Chloride Carbon Dioxide BUN Creatinine Glucose POC Glucose 113 H Lactic Acid Calcium Phosphorus Magnesium Direct Bilirubin AST ALT Alkaline Phosphatase Lactate Dehydrogenase Troponin T C-Reactive Protein Total Protein Albumin Prealbumin Triglycerides Cholesterol LDL Cholesterol Direct HDL Cholesterol PTH Intact Urine pH Urine WBC (Auto) Urine Creatinine Urine Total Protein Fluid Total Protein Vancomycin Trough Rheumatoid Factor Complement C4 Miscellaneous Test Crossmatch 11/09/16 11/09/16 11/09/16 04:35 10:15 18:21 WBC RBC 2.68 L Hgb 7.8 L Hct 23.3 L MCV MCH MCHC RDW 17.0 H Plt Count Lymph % (Auto) [place] % (Auto) 12.1 H Lymph # [place] # 1.1 H Baso # Seg Neutrophils % Seg Neuts % (Manual) Lymphocytes % (Manual) Monocytes % (Manual) Eosinophils % (Manual) Basophils % (Manual) Nucleated RBC % Seg Neutrophils # Seg Neutrophils # Man Lymphocytes # (Manual) Monocytes # (Manual) Eosinophils # (Manual) Basophils # (Manual) PT INR Fibrinogen dRVVT Confirm Interp Factor V Activity POC ABG pH POC ABG pCO2 POC ABG pO2 ABG pO2 ABG HCO3 ABG Base Excess ABG Hemoglobin Oxyhemoglobin Sodium Potassium Chloride Carbon Dioxide BUN 51 H Creatinine 1.8 H Glucose POC Glucose 60 L Lactic Acid Calcium 8.3 L Phosphorus Magnesium Direct Bilirubin AST ALT Alkaline Phosphatase Lactate Dehydrogenase Troponin T C-Reactive Protein Total Protein Albumin Prealbumin Triglycerides Cholesterol LDL Cholesterol Direct HDL Cholesterol PTH Intact Urine pH Urine WBC (Auto) Urine Creatinine Urine Total Protein Fluid Total Protein Vancomycin Trough Rheumatoid Factor Complement C4 Miscellaneous Test Crossmatch 11/09/16 11/10/16 11/10/16 18:55 07:00 11:51 WBC RBC Hgb Hct MCV MCH MCHC RDW Plt Count Lymph % (Auto) [place] % (Auto) Lymph # [place] # Baso # Seg Neutrophils % Seg Neuts % (Manual) Lymphocytes % (Manual) Monocytes % (Manual) Eosinophils % (Manual) Basophils % (Manual) Nucleated RBC % Seg Neutrophils # Seg Neutrophils # Man Lymphocytes # (Manual) Monocytes # (Manual) Eosinophils # (Manual) Basophils # (Manual) PT INR Fibrinogen dRVVT Confirm Interp Factor V Activity POC ABG pH POC ABG pCO2 POC ABG pO2 ABG pO2 ABG HCO3 ABG Base Excess ABG Hemoglobin Oxyhemoglobin Sodium Potassium 3.0 L D Chloride 97.4 L Carbon Dioxide BUN 28 H Creatinine 1.3 H Glucose POC Glucose 68 L 120 H Lactic Acid Calcium 7.8 L Phosphorus Magnesium Direct Bilirubin AST ALT Alkaline Phosphatase Lactate Dehydrogenase Troponin T C-Reactive Protein Total Protein Albumin Prealbumin Triglycerides Cholesterol LDL Cholesterol Direct HDL Cholesterol PTH Intact Urine pH Urine WBC (Auto) Urine Creatinine Urine Total Protein Fluid Total Protein Vancomycin Trough Rheumatoid Factor Complement C4 Miscellaneous Test Crossmatch 11/10/16 11/11/16 11/11/16 14:20 06:59 06:59 WBC RBC 2.81 L Hgb 8.1 L Hct 24.4 L MCV MCH MCHC RDW 16.4 H Plt Count Lymph % (Auto) [place] % (Auto) 10.8 H Lymph # [place] # 1.0 H Baso # Seg Neutrophils % Seg Neuts % (Manual) Lymphocytes % (Manual) Monocytes % (Manual) Eosinophils % (Manual) Basophils % (Manual) Nucleated RBC % Seg Neutrophils # Seg Neutrophils # Man Lymphocytes # (Manual) Monocytes # (Manual) Eosinophils # (Manual) Basophils # (Manual) PT INR Fibrinogen dRVVT Confirm Interp Factor V Activity POC ABG pH POC ABG pCO2 POC ABG pO2 ABG pO2 ABG HCO3 ABG Base Excess ABG Hemoglobin Oxyhemoglobin Sodium Potassium Chloride Carbon Dioxide BUN Creatinine Glucose POC Glucose Lactic Acid Calcium Phosphorus Magnesium Direct Bilirubin AST ALT Alkaline Phosphatase Lactate Dehydrogenase 196 H Troponin T C-Reactive Protein Total Protein 6.1 L Albumin Prealbumin Triglycerides Cholesterol LDL Cholesterol Direct HDL Cholesterol PTH Intact Urine pH Urine WBC (Auto) Urine Creatinine Urine Total Protein Fluid Total Protein < 3.0 L Vancomycin Trough Rheumatoid Factor Complement C4 Miscellaneous Test Crossmatch 11/11/16 11/11/16 11/12/16 06:59 09:50 04:00 WBC RBC Hgb Hct MCV MCH MCHC RDW Plt Count Lymph % (Auto) [place] % (Auto) Lymph # [place] # Baso # Seg Neutrophils % Seg Neuts % (Manual) Lymphocytes % (Manual) Monocytes % (Manual) Eosinophils % (Manual) Basophils % (Manual) Nucleated RBC % Seg Neutrophils # Seg Neutrophils # Man Lymphocytes # (Manual) Monocytes # (Manual) Eosinophils # (Manual) Basophils # (Manual) PT INR 1.18 H Fibrinogen dRVVT Confirm Interp Factor V Activity POC ABG pH POC ABG pCO2 POC ABG pO2 ABG pO2 ABG HCO3 ABG Base Excess ABG Hemoglobin Oxyhemoglobin Sodium 136 L 133 L Potassium Chloride 96.1 L 94.8 L Carbon Dioxide 21 L BUN 37 H 42 H Creatinine 1.8 H 2.0 H Glucose POC Glucose Lactic Acid Calcium Phosphorus Magnesium Direct Bilirubin AST ALT Alkaline Phosphatase Lactate Dehydrogenase Troponin T C-Reactive Protein Total Protein Albumin Prealbumin Triglycerides Cholesterol LDL Cholesterol Direct HDL Cholesterol PTH Intact Urine pH Urine WBC (Auto) Urine Creatinine Urine Total Protein Fluid Total Protein Vancomycin Trough Rheumatoid Factor Complement C4 Miscellaneous Test Crossmatch 11/12/16 11/12/16 11/13/16 04:00 23:55 05:53 WBC RBC Hgb 8.9 L Hct 27.2 L MCV MCH MCHC RDW Plt Count Lymph % (Auto) [place] % (Auto) Lymph # [place] # Baso # Seg Neutrophils % Seg Neuts % (Manual) Lymphocytes % (Manual) Monocytes % (Manual) Eosinophils % (Manual) Basophils % (Manual) Nucleated RBC % Seg Neutrophils # Seg Neutrophils # Man Lymphocytes # (Manual) Monocytes # (Manual) Eosinophils # (Manual) Basophils # (Manual) PT INR Fibrinogen dRVVT Confirm Interp Factor V Activity POC ABG pH POC ABG pCO2 POC ABG pO2 ABG pO2 ABG HCO3 ABG Base Excess ABG Hemoglobin Oxyhemoglobin Sodium Potassium Chloride Carbon Dioxide BUN Creatinine Glucose POC Glucose 132 H 120 H Lactic Acid Calcium Phosphorus Magnesium Direct Bilirubin AST ALT Alkaline Phosphatase Lactate Dehydrogenase Troponin T C-Reactive Protein Total Protein Albumin Prealbumin Triglycerides Cholesterol LDL Cholesterol Direct HDL Cholesterol PTH Intact Urine pH Urine WBC (Auto) Urine Creatinine Urine Total Protein Fluid Total Protein Vancomycin Trough Rheumatoid Factor Complement C4 Miscellaneous Test Crossmatch 11/13/16 11/13/16 11/13/16 11:43 17:09 23:41 WBC RBC Hgb Hct MCV MCH MCHC RDW Plt Count Lymph % (Auto) [place] % (Auto) Lymph # [place] # Baso # Seg Neutrophils % Seg Neuts % (Manual) Lymphocytes % (Manual) Monocytes % (Manual) Eosinophils % (Manual) Basophils % (Manual) Nucleated RBC % Seg Neutrophils # Seg Neutrophils # Man Lymphocytes # (Manual) Monocytes # (Manual) Eosinophils # (Manual) Basophils # (Manual) PT INR Fibrinogen dRVVT Confirm Interp Factor V Activity POC ABG pH POC ABG pCO2 POC ABG pO2 ABG pO2 ABG HCO3 ABG Base Excess ABG Hemoglobin Oxyhemoglobin Sodium Potassium Chloride Carbon Dioxide BUN Creatinine Glucose POC Glucose 114 H 113 H 108 H Lactic Acid Calcium Phosphorus Magnesium Direct Bilirubin AST ALT Alkaline Phosphatase Lactate Dehydrogenase Troponin T C-Reactive Protein Total Protein Albumin Prealbumin Triglycerides Cholesterol LDL Cholesterol Direct HDL Cholesterol PTH Intact Urine pH Urine WBC (Auto) Urine Creatinine Urine Total Protein Fluid Total Protein Vancomycin Trough Rheumatoid Factor Complement C4 Miscellaneous Test Crossmatch 11/13/16 11/15/16 11/15/16 Unknown 00:37 03:30 WBC 11.2 H RBC 2.72 L Hgb 7.6 L Hct 23.4 L MCV MCH MCHC RDW 16.5 H Plt Count Lymph % (Auto) [place] % (Auto) Lymph # [place] # Baso # Seg Neutrophils % Seg Neuts % (Manual) Lymphocytes % (Manual) Monocytes % (Manual) Eosinophils % (Manual) Basophils % (Manual) Nucleated RBC % Seg Neutrophils # Seg Neutrophils # Man Lymphocytes # (Manual) Monocytes # (Manual) Eosinophils # (Manual) Basophils # (Manual) PT INR Fibrinogen dRVVT Confirm Interp Factor V Activity POC ABG pH POC ABG pCO2 POC ABG pO2 ABG pO2 ABG HCO3 ABG Base Excess ABG Hemoglobin Oxyhemoglobin Sodium 135 L Potassium Chloride 95.2 L Carbon Dioxide BUN 52 H Creatinine 2.2 H Glucose POC Glucose 108 H Lactic Acid Calcium Phosphorus Magnesium Direct Bilirubin AST ALT Alkaline Phosphatase Lactate Dehydrogenase Troponin T C-Reactive Protein Total Protein Albumin Prealbumin Triglycerides Cholesterol LDL Cholesterol Direct HDL Cholesterol PTH Intact Urine pH Urine WBC (Auto) Urine Creatinine Urine Total Protein Fluid Total Protein Vancomycin Trough Rheumatoid Factor Complement C4 Miscellaneous Test Crossmatch 11/15/16 11/15/16 11/15/16 03:30 05:04 11:50 WBC RBC Hgb Hct MCV MCH MCHC RDW Plt Count Lymph % (Auto) [place] % (Auto) Lymph # [place] # Baso # Seg Neutrophils % Seg Neuts % (Manual) Lymphocytes % (Manual) Monocytes % (Manual) Eosinophils % (Manual) Basophils % (Manual) Nucleated RBC % Seg Neutrophils # Seg Neutrophils # Man Lymphocytes # (Manual) Monocytes # (Manual) Eosinophils # (Manual) Basophils # (Manual) PT INR Fibrinogen dRVVT Confirm Interp Factor V Activity POC ABG pH POC ABG pCO2 POC ABG pO2 ABG pO2 ABG HCO3 ABG Base Excess ABG Hemoglobin Oxyhemoglobin Sodium Potassium 3.4 L Chloride Carbon Dioxide BUN 25 H Creatinine 1.5 H Glucose 103 H POC Glucose 121 H 144 H Lactic Acid Calcium Phosphorus Magnesium Direct Bilirubin AST ALT Alkaline Phosphatase Lactate Dehydrogenase Troponin T C-Reactive Protein Total Protein Albumin Prealbumin Triglycerides Cholesterol LDL Cholesterol Direct HDL Cholesterol PTH Intact Urine pH Urine WBC (Auto) Urine Creatinine Urine Total Protein Fluid Total Protein Vancomycin Trough Rheumatoid Factor Complement C4 Miscellaneous Test Crossmatch 11/15/16 11/15/16 11/16/16 21:28 23:20 11:44 WBC RBC Hgb Hct MCV MCH MCHC RDW Plt Count Lymph % (Auto) [place] % (Auto) Lymph # [place] # Baso # Seg Neutrophils % Seg Neuts % (Manual) Lymphocytes % (Manual) Monocytes % (Manual) Eosinophils % (Manual) Basophils % (Manual) Nucleated RBC % Seg Neutrophils # Seg Neutrophils # Man Lymphocytes # (Manual) Monocytes # (Manual) Eosinophils # (Manual) Basophils # (Manual) PT INR Fibrinogen dRVVT Confirm Interp Factor V Activity POC ABG pH 7.462 H POC ABG pCO2 POC ABG pO2 71 L ABG pO2 ABG HCO3 ABG Base Excess ABG Hemoglobin Oxyhemoglobin Sodium Potassium Chloride Carbon Dioxide BUN Creatinine Glucose POC Glucose 116 H 133 H Lactic Acid Calcium Phosphorus Magnesium Direct Bilirubin AST ALT Alkaline Phosphatase Lactate Dehydrogenase Troponin T C-Reactive Protein Total Protein Albumin Prealbumin Triglycerides Cholesterol LDL Cholesterol Direct HDL Cholesterol PTH Intact Urine pH Urine WBC (Auto) Urine Creatinine Urine Total Protein Fluid Total Protein Vancomycin Trough Rheumatoid Factor Complement C4 Miscellaneous Test Crossmatch 11/16/16 11/16/16 11/16/16 12:20 17:05 23:35 WBC 11.7 H RBC 2.73 L Hgb 7.6 L Hct 23.7 L MCV MCH MCHC RDW 16.6 H Plt Count Lymph % (Auto) [place] % (Auto) Lymph # [place] # Baso # Seg Neutrophils % Seg Neuts % (Manual) Lymphocytes % (Manual) Monocytes % (Manual) Eosinophils % (Manual) Basophils % (Manual) Nucleated RBC % Seg Neutrophils # Seg Neutrophils # Man Lymphocytes # (Manual) Monocytes # (Manual) Eosinophils # (Manual) Basophils # (Manual) PT INR Fibrinogen dRVVT Confirm Interp Factor V Activity POC ABG pH POC ABG pCO2 POC ABG pO2 ABG pO2 ABG HCO3 ABG Base Excess ABG Hemoglobin Oxyhemoglobin Sodium Potassium Chloride Carbon Dioxide BUN Creatinine Glucose POC Glucose 154 H 125 H Lactic Acid Calcium Phosphorus Magnesium Direct Bilirubin AST ALT Alkaline Phosphatase Lactate Dehydrogenase Troponin T C-Reactive Protein Total Protein Albumin Prealbumin Triglycerides Cholesterol LDL Cholesterol Direct HDL Cholesterol PTH Intact Urine pH Urine WBC (Auto) Urine Creatinine Urine Total Protein Fluid Total Protein Vancomycin Trough Rheumatoid Factor Complement C4 Miscellaneous Test Crossmatch 11/17/16 11/17/16 11/17/16 03:20 03:20 03:20 WBC RBC 2.55 L Hgb 7.3 L Hct 21.9 L MCV MCH MCHC RDW 16.6 H Plt Count Lymph % (Auto) [place] % (Auto) 11.5 H Lymph # [place] # 1.1 H Baso # Seg Neutrophils % Seg Neuts % (Manual) Lymphocytes % (Manual) Monocytes % (Manual) Eosinophils % (Manual) Basophils % (Manual) Nucleated RBC % Seg Neutrophils # Seg Neutrophils # Man Lymphocytes # (Manual) Monocytes # (Manual) Eosinophils # (Manual) Basophils # (Manual) PT 16.8 H INR 1.37 H Fibrinogen dRVVT Confirm Interp Factor V Activity POC ABG pH POC ABG pCO2 POC ABG pO2 ABG pO2 ABG HCO3 ABG Base Excess ABG Hemoglobin Oxyhemoglobin Sodium Potassium 3.5 L Chloride Carbon Dioxide BUN 21 H Creatinine Glucose POC Glucose Lactic Acid Calcium 7.9 L Phosphorus Magnesium Direct Bilirubin AST ALT Alkaline Phosphatase Lactate Dehydrogenase Troponin T C-Reactive Protein Total Protein Albumin Prealbumin Triglycerides Cholesterol LDL Cholesterol Direct HDL Cholesterol PTH Intact Urine pH Urine WBC (Auto) Urine Creatinine Urine Total Protein Fluid Total Protein Vancomycin Trough Rheumatoid Factor Complement C4 Miscellaneous Test Crossmatch 11/17/16 11/17/16 11/17/16 06:34 11:21 21:22 WBC RBC Hgb Hct MCV MCH MCHC RDW Plt Count Lymph % (Auto) [place] % (Auto) Lymph # [place] # Baso # Seg Neutrophils % Seg Neuts % (Manual) Lymphocytes % (Manual) Monocytes % (Manual) Eosinophils % (Manual) Basophils % (Manual) Nucleated RBC % Seg Neutrophils # Seg Neutrophils # Man Lymphocytes # (Manual) Monocytes # (Manual) Eosinophils # (Manual) Basophils # (Manual) PT INR Fibrinogen dRVVT Confirm Interp Factor V Activity POC ABG pH 7.467 H POC ABG pCO2 POC ABG pO2 73 L ABG pO2 ABG HCO3 ABG Base Excess ABG Hemoglobin Oxyhemoglobin Sodium Potassium Chloride Carbon Dioxide BUN Creatinine Glucose POC Glucose 121 H 119 H Lactic Acid Calcium Phosphorus Magnesium Direct Bilirubin AST ALT Alkaline Phosphatase Lactate Dehydrogenase Troponin T C-Reactive Protein Total Protein Albumin Prealbumin Triglycerides Cholesterol LDL Cholesterol Direct HDL Cholesterol PTH Intact Urine pH Urine WBC (Auto) Urine Creatinine Urine Total Protein Fluid Total Protein Vancomycin Trough Rheumatoid Factor Complement C4 Miscellaneous Test Crossmatch 11/18/16 11/18/16 11/19/16 12:16 17:19 00:00 WBC RBC Hgb Hct MCV MCH MCHC RDW Plt Count Lymph % (Auto) [place] % (Auto) Lymph # [place] # Baso # Seg Neutrophils % Seg Neuts % (Manual) Lymphocytes % (Manual) Monocytes % (Manual) Eosinophils % (Manual) Basophils % (Manual) Nucleated RBC % Seg Neutrophils # Seg Neutrophils # Man Lymphocytes # (Manual) Monocytes # (Manual) Eosinophils # (Manual) Basophils # (Manual) PT INR Fibrinogen dRVVT Confirm Interp Factor V Activity POC ABG pH POC ABG pCO2 POC ABG pO2 ABG pO2 ABG HCO3 ABG Base Excess ABG Hemoglobin Oxyhemoglobin Sodium Potassium Chloride Carbon Dioxide BUN Creatinine Glucose POC Glucose 124 H 162 H 139 H Lactic Acid Calcium Phosphorus Magnesium Direct Bilirubin AST ALT Alkaline Phosphatase Lactate Dehydrogenase Troponin T C-Reactive Protein Total Protein Albumin Prealbumin Triglycerides Cholesterol LDL Cholesterol Direct HDL Cholesterol PTH Intact Urine pH Urine WBC (Auto) Urine Creatinine Urine Total Protein Fluid Total Protein Vancomycin Trough Rheumatoid Factor Complement C4 Miscellaneous Test Crossmatch 11/19/16 11/19/16 11/20/16 05:00 12:43 00:40 WBC RBC Hgb Hct MCV MCH MCHC RDW Plt Count Lymph % (Auto) [place] % (Auto) Lymph # [place] # Baso # Seg Neutrophils % Seg Neuts % (Manual) Lymphocytes % (Manual) Monocytes % (Manual) Eosinophils % (Manual) Basophils % (Manual) Nucleated RBC % Seg Neutrophils # Seg Neutrophils # Man Lymphocytes # (Manual) Monocytes # (Manual) Eosinophils # (Manual) Basophils # (Manual) PT INR Fibrinogen dRVVT Confirm Interp Factor V Activity POC ABG pH POC ABG pCO2 POC ABG pO2 ABG pO2 ABG HCO3 ABG Base Excess ABG Hemoglobin Oxyhemoglobin Sodium Potassium Chloride Carbon Dioxide BUN Creatinine Glucose POC Glucose 110 H 125 H 136 H Lactic Acid Calcium Phosphorus Magnesium Direct Bilirubin AST ALT Alkaline Phosphatase Lactate Dehydrogenase Troponin T C-Reactive Protein Total Protein Albumin Prealbumin Triglycerides Cholesterol LDL Cholesterol Direct HDL Cholesterol PTH Intact Urine pH Urine WBC (Auto) Urine Creatinine Urine Total Protein Fluid Total Protein Vancomycin Trough Rheumatoid Factor Complement C4 Miscellaneous Test Crossmatch 11/20/16 11/20/16 11/20/16 05:00 05:00 05:51 WBC 13.1 H RBC 2.74 L Hgb 7.7 L Hct 23.6 L MCV MCH MCHC RDW 16.9 H Plt Count Lymph % (Auto) [place] % (Auto) 10.8 H Lymph # [place] # 1.4 H Baso # Seg Neutrophils % Seg Neuts % (Manual) Lymphocytes % (Manual) Monocytes % (Manual) Eosinophils % (Manual) Basophils % (Manual) Nucleated RBC % Seg Neutrophils # 7.9 H Seg Neutrophils # Man Lymphocytes # (Manual) Monocytes # (Manual) Eosinophils # (Manual) Basophils # (Manual) PT INR Fibrinogen dRVVT Confirm Interp Factor V Activity POC ABG pH POC ABG pCO2 POC ABG pO2 ABG pO2 ABG HCO3 ABG Base Excess ABG Hemoglobin Oxyhemoglobin Sodium Potassium Chloride Carbon Dioxide BUN 31 H Creatinine 1.8 H Glucose 129 H POC Glucose 133 H Lactic Acid Calcium Phosphorus Magnesium Direct Bilirubin AST ALT Alkaline Phosphatase Lactate Dehydrogenase Troponin T C-Reactive Protein Total Protein Albumin Prealbumin Triglycerides Cholesterol LDL Cholesterol Direct HDL Cholesterol PTH Intact Urine pH Urine WBC (Auto) Urine Creatinine Urine Total Protein Fluid Total Protein Vancomycin Trough Rheumatoid Factor Complement C4 Miscellaneous Test Crossmatch 11/20/16 11/20/16 11/21/16 12:40 18:10 01:20 WBC RBC Hgb Hct MCV MCH MCHC RDW Plt Count Lymph % (Auto) [place] % (Auto) Lymph # [place] # Baso # Seg Neutrophils % Seg Neuts % (Manual) Lymphocytes % (Manual) Monocytes % (Manual) Eosinophils % (Manual) Basophils % (Manual) Nucleated RBC % Seg Neutrophils # Seg Neutrophils # Man Lymphocytes # (Manual) Monocytes # (Manual) Eosinophils # (Manual) Basophils # (Manual) PT INR Fibrinogen dRVVT Confirm Interp Factor V Activity POC ABG pH POC ABG pCO2 POC ABG pO2 ABG pO2 ABG HCO3 ABG Base Excess ABG Hemoglobin Oxyhemoglobin Sodium Potassium Chloride Carbon Dioxide BUN Creatinine Glucose POC Glucose 134 H 138 H 136 H Lactic Acid Calcium Phosphorus Magnesium Direct Bilirubin AST ALT Alkaline Phosphatase Lactate Dehydrogenase Troponin T C-Reactive Protein Total Protein Albumin Prealbumin Triglycerides Cholesterol LDL Cholesterol Direct HDL Cholesterol PTH Intact Urine pH Urine WBC (Auto) Urine Creatinine Urine Total Protein Fluid Total Protein Vancomycin Trough Rheumatoid Factor Complement C4 Miscellaneous Test Crossmatch 11/21/16 11/21/16 11/21/16 07:04 07:45 07:45 WBC 22.0 H RBC 2.91 L Hgb 8.2 L Hct 25.4 L MCV MCH MCHC RDW 17.1 H Plt Count Lymph % (Auto) [place] % (Auto) Lymph # [place] # Baso # Seg Neutrophils % Seg Neuts % (Manual) Lymphocytes % (Manual) 8.0 L Monocytes % (Manual) Eosinophils % (Manual) Basophils % (Manual) Nucleated RBC % Seg Neutrophils # Seg Neutrophils # Man 14.7 H Lymphocytes # (Manual) Monocytes # (Manual) 1.1 H Eosinophils # (Manual) Basophils # (Manual) PT INR Fibrinogen dRVVT Confirm Interp Factor V Activity POC ABG pH POC ABG pCO2 POC ABG pO2 ABG pO2 ABG HCO3 ABG Base Excess ABG Hemoglobin Oxyhemoglobin Sodium Potassium Chloride Carbon Dioxide BUN 42 H Creatinine 2.0 H Glucose POC Glucose 108 H Lactic Acid Calcium Phosphorus Magnesium Direct Bilirubin AST ALT Alkaline Phosphatase Lactate Dehydrogenase Troponin T C-Reactive Protein Total Protein Albumin Prealbumin Triglycerides Cholesterol LDL Cholesterol Direct HDL Cholesterol PTH Intact Urine pH Urine WBC (Auto) Urine Creatinine Urine Total Protein Fluid Total Protein Vancomycin Trough Rheumatoid Factor Complement C4 Miscellaneous Test Crossmatch 11/21/16 11/21/16 11/21/16 08:38 10:09 11:20 WBC RBC Hgb Hct MCV MCH MCHC RDW Plt Count Lymph % (Auto) [place] % (Auto) Lymph # [place] # Baso # Seg Neutrophils % Seg Neuts % (Manual) Lymphocytes % (Manual) Monocytes % (Manual) Eosinophils % (Manual) Basophils % (Manual) Nucleated RBC % Seg Neutrophils # Seg Neutrophils # Man Lymphocytes # (Manual) Monocytes # (Manual) Eosinophils # (Manual) Basophils # (Manual) PT INR Fibrinogen dRVVT Confirm Interp Factor V Activity POC ABG pH 7.346 L POC ABG pCO2 34.4 L POC ABG pO2 314 H ABG pO2 ABG HCO3 ABG Base Excess ABG Hemoglobin Oxyhemoglobin Sodium Potassium Chloride Carbon Dioxide BUN Creatinine Glucose POC Glucose 195 H 153 H Lactic Acid Calcium Phosphorus Magnesium Direct Bilirubin AST ALT Alkaline Phosphatase Lactate Dehydrogenase Troponin T C-Reactive Protein Total Protein Albumin Prealbumin Triglycerides Cholesterol LDL Cholesterol Direct HDL Cholesterol PTH Intact Urine pH Urine WBC (Auto) Urine Creatinine Urine Total Protein Fluid Total Protein Vancomycin Trough Rheumatoid Factor Complement C4 Miscellaneous Test Crossmatch 11/21/16 11/22/16 11/22/16 23:37 04:48 05:00 WBC 29.7 H RBC 2.73 L Hgb 7.5 L Hct 24.2 L MCV MCH 27 L MCHC RDW 17.4 H Plt Count Lymph % (Auto) [place] % (Auto) Lymph # [place] # Baso # Seg Neutrophils % Seg Neuts % (Manual) Lymphocytes % (Manual) 7.0 L Monocytes % (Manual) Eosinophils % (Manual) Basophils % (Manual) Nucleated RBC % Seg Neutrophils # Seg Neutrophils # Man 15.4 H Lymphocytes # (Manual) Monocytes # (Manual) Eosinophils # (Manual) Basophils # (Manual) PT INR Fibrinogen dRVVT Confirm Interp Factor V Activity POC ABG pH POC ABG pCO2 24.6 L POC ABG pO2 189 H ABG pO2 ABG HCO3 ABG Base Excess ABG Hemoglobin Oxyhemoglobin Sodium Potassium Chloride Carbon Dioxide BUN Creatinine Glucose POC Glucose 65 L Lactic Acid Calcium Phosphorus Magnesium Direct Bilirubin AST ALT Alkaline Phosphatase Lactate Dehydrogenase Troponin T C-Reactive Protein Total Protein Albumin Prealbumin Triglycerides Cholesterol LDL Cholesterol Direct HDL Cholesterol PTH Intact Urine pH Urine WBC (Auto) Urine Creatinine Urine Total Protein Fluid Total Protein Vancomycin Trough Rheumatoid Factor Complement C4 Miscellaneous Test Crossmatch 11/22/16 11/23/16 11/23/16 05:00 03:44 04:06 WBC RBC 2.52 L Hgb 7.2 L Hct 21.5 L MCV MCH MCHC RDW 17.1 H Plt Count Lymph % (Auto) [place] % (Auto) 12.4 H Lymph # [place] # 1.4 H Baso # Seg Neutrophils % Seg Neuts % (Manual) Lymphocytes % (Manual) Monocytes % (Manual) Eosinophils % (Manual) Basophils % (Manual) Nucleated RBC % Seg Neutrophils # Seg Neutrophils # Man Lymphocytes # (Manual) Monocytes # (Manual) Eosinophils # (Manual) Basophils # (Manual) PT INR Fibrinogen dRVVT Confirm Interp Factor V Activity POC ABG pH 7.493 H POC ABG pCO2 29.5 L POC ABG pO2 49 L ABG pO2 ABG HCO3 ABG Base Excess ABG Hemoglobin Oxyhemoglobin Sodium 134 L Potassium Chloride 95.9 L Carbon Dioxide 14 L D BUN 51 H Creatinine 2.6 H Glucose POC Glucose Lactic Acid Calcium Phosphorus Magnesium Direct Bilirubin AST ALT Alkaline Phosphatase Lactate Dehydrogenase Troponin T C-Reactive Protein Total Protein Albumin Prealbumin Triglycerides Cholesterol LDL Cholesterol Direct HDL Cholesterol PTH Intact Urine pH Urine WBC (Auto) Urine Creatinine Urine Total Protein Fluid Total Protein Vancomycin Trough Rheumatoid Factor Complement C4 Miscellaneous Test Crossmatch 11/23/16 11/23/16 11/24/16 04:06 11:29 06:39 WBC RBC Hgb Hct MCV MCH MCHC RDW Plt Count Lymph % (Auto) [place] % (Auto) Lymph # [place] # Baso # Seg Neutrophils % Seg Neuts % (Manual) Lymphocytes % (Manual) Monocytes % (Manual) Eosinophils % (Manual) Basophils % (Manual) Nucleated RBC % Seg Neutrophils # Seg Neutrophils # Man Lymphocytes # (Manual) Monocytes # (Manual) Eosinophils # (Manual) Basophils # (Manual) PT INR Fibrinogen dRVVT Confirm Interp Factor V Activity POC ABG pH POC ABG pCO2 POC ABG pO2 ABG pO2 ABG HCO3 ABG Base Excess ABG Hemoglobin Oxyhemoglobin Sodium 136 L Potassium Chloride 95.2 L Carbon Dioxide BUN 60 H Creatinine 2.9 H Glucose POC Glucose 69 L 305 H Lactic Acid Calcium Phosphorus Magnesium 1.60 L Direct Bilirubin AST ALT Alkaline Phosphatase Lactate Dehydrogenase Troponin T C-Reactive Protein Total Protein Albumin Prealbumin Triglycerides Cholesterol LDL Cholesterol Direct HDL Cholesterol PTH Intact Urine pH Urine WBC (Auto) Urine Creatinine Urine Total Protein Fluid Total Protein Vancomycin Trough Rheumatoid Factor Complement C4 Miscellaneous Test Crossmatch 11/24/16 11/24/16 11/24/16 06:43 08:08 08:08 WBC 11.2 H RBC 2.47 L Hgb 6.8 L Hct 20.6 L MCV MCH MCHC RDW 17.0 H Plt Count Lymph % (Auto) [place] % (Auto) 10.3 H Lymph # [place] # 1.2 H Baso # Seg Neutrophils % Seg Neuts % (Manual) Lymphocytes % (Manual) Monocytes % (Manual) Eosinophils % (Manual) Basophils % (Manual) Nucleated RBC % Seg Neutrophils # Seg Neutrophils # Man Lymphocytes # (Manual) Monocytes # (Manual) Eosinophils # (Manual) Basophils # (Manual) PT INR Fibrinogen dRVVT Confirm Interp Factor V Activity POC ABG pH POC ABG pCO2 POC ABG pO2 ABG pO2 ABG HCO3 ABG Base Excess ABG Hemoglobin Oxyhemoglobin Sodium 135 L Potassium Chloride 96.3 L Carbon Dioxide BUN 61 H Creatinine 3.1 H Glucose POC Glucose 62 L Lactic Acid Calcium 8.2 L Phosphorus Magnesium Direct Bilirubin AST ALT Alkaline Phosphatase Lactate Dehydrogenase Troponin T C-Reactive Protein Total Protein Albumin Prealbumin Triglycerides Cholesterol LDL Cholesterol Direct HDL Cholesterol PTH Intact Urine pH Urine WBC (Auto) Urine Creatinine Urine Total Protein Fluid Total Protein Vancomycin Trough Rheumatoid Factor Complement C4 Miscellaneous Test Crossmatch 11/24/16 11/24/16 11/24/16 08:34 11:20 12:41 WBC RBC Hgb Hct MCV MCH MCHC RDW Plt Count Lymph % (Auto) [place] % (Auto) Lymph # [place] # Baso # Seg Neutrophils % Seg Neuts % (Manual) Lymphocytes % (Manual) Monocytes % (Manual) Eosinophils % (Manual) Basophils % (Manual) Nucleated RBC % Seg Neutrophils # Seg Neutrophils # Man Lymphocytes # (Manual) Monocytes # (Manual) Eosinophils # (Manual) Basophils # (Manual) PT INR Fibrinogen dRVVT Confirm Interp Factor V Activity POC ABG pH POC ABG pCO2 POC ABG pO2 ABG pO2 ABG HCO3 ABG Base Excess ABG Hemoglobin Oxyhemoglobin Sodium Potassium Chloride Carbon Dioxide BUN Creatinine Glucose POC Glucose 108 H Lactic Acid Calcium Phosphorus Magnesium 1.60 L Direct Bilirubin AST ALT Alkaline Phosphatase Lactate Dehydrogenase Troponin T C-Reactive Protein Total Protein Albumin Prealbumin Triglycerides Cholesterol LDL Cholesterol Direct HDL Cholesterol PTH Intact Urine pH Urine WBC (Auto) Urine Creatinine Urine Total Protein Fluid Total Protein Vancomycin Trough Rheumatoid Factor Complement C4 Miscellaneous Test Crossmatch See Detail 11/25/16 11/25/16 11/25/16 00:03 04:42 04:42 WBC RBC 3.03 L Hgb 8.6 L Hct 25.3 L MCV MCH MCHC RDW 16.2 H Plt Count Lymph % (Auto) [place] % (Auto) 8.1 H Lymph # [place] # Baso # Seg Neutrophils % 71.3 H Seg Neuts % (Manual) Lymphocytes % (Manual) Monocytes % (Manual) Eosinophils % (Manual) Basophils % (Manual) Nucleated RBC % Seg Neutrophils # Seg Neutrophils # Man Lymphocytes # (Manual) Monocytes # (Manual) Eosinophils # (Manual) Basophils # (Manual) PT INR Fibrinogen dRVVT Confirm Interp Factor V Activity POC ABG pH POC ABG pCO2 POC ABG pO2 ABG pO2 ABG HCO3 ABG Base Excess ABG Hemoglobin Oxyhemoglobin Sodium Potassium Chloride Carbon Dioxide BUN 61 H Creatinine 3.0 H Glucose 102 H POC Glucose 113 H Lactic Acid Calcium 8.2 L Phosphorus Magnesium Direct Bilirubin AST ALT Alkaline Phosphatase 142 H Lactate Dehydrogenase Troponin T C-Reactive Protein Total Protein 5.7 L Albumin 1.5 L Prealbumin Triglycerides Cholesterol LDL Cholesterol Direct HDL Cholesterol PTH Intact Urine pH Urine WBC (Auto) Urine Creatinine Urine Total Protein Fluid Total Protein Vancomycin Trough Rheumatoid Factor Complement C4 Miscellaneous Test Crossmatch 11/25/16 11/25/16 11/25/16 05:12 11:31 14:12 WBC RBC Hgb Hct MCV MCH MCHC RDW Plt Count Lymph % (Auto) [place] % (Auto) Lymph # [place] # Baso # Seg Neutrophils % Seg Neuts % (Manual) Lymphocytes % (Manual) Monocytes % (Manual) Eosinophils % (Manual) Basophils % (Manual) Nucleated RBC % Seg Neutrophils # Seg Neutrophils # Man Lymphocytes # (Manual) Monocytes # (Manual) Eosinophils # (Manual) Basophils # (Manual) PT INR Fibrinogen dRVVT Confirm Interp Factor V Activity POC ABG pH 7.487 H POC ABG pCO2 POC ABG pO2 153 H ABG pO2 ABG HCO3 ABG Base Excess ABG Hemoglobin Oxyhemoglobin Sodium Potassium Chloride Carbon Dioxide BUN Creatinine Glucose POC Glucose 131 H 140 H Lactic Acid Calcium Phosphorus Magnesium Direct Bilirubin AST ALT Alkaline Phosphatase Lactate Dehydrogenase Troponin T C-Reactive Protein Total Protein Albumin Prealbumin Triglycerides Cholesterol LDL Cholesterol Direct HDL Cholesterol PTH Intact Urine pH Urine WBC (Auto) Urine Creatinine Urine Total Protein Fluid Total Protein Vancomycin Trough Rheumatoid Factor Complement C4 Miscellaneous Test Crossmatch 11/25/16 11/26/16 11/26/16 17:23 00:09 05:13 WBC RBC 2.94 L Hgb 8.4 L Hct 24.6 L MCV MCH MCHC RDW 16.4 H Plt Count Lymph % (Auto) [place] % (Auto) 12.3 H Lymph # [place] # 1.1 H Baso # Seg Neutrophils % Seg Neuts % (Manual) Lymphocytes % (Manual) Monocytes % (Manual) Eosinophils % (Manual) Basophils % (Manual) Nucleated RBC % Seg Neutrophils # Seg Neutrophils # Man Lymphocytes # (Manual) Monocytes # (Manual) Eosinophils # (Manual) Basophils # (Manual) PT INR Fibrinogen dRVVT Confirm Interp Factor V Activity POC ABG pH POC ABG pCO2 POC ABG pO2 ABG pO2 ABG HCO3 ABG Base Excess ABG Hemoglobin Oxyhemoglobin Sodium Potassium Chloride Carbon Dioxide BUN Creatinine Glucose POC Glucose 146 H 112 H Lactic Acid Calcium Phosphorus Magnesium Direct Bilirubin AST ALT Alkaline Phosphatase Lactate Dehydrogenase Troponin T C-Reactive Protein Total Protein Albumin Prealbumin Triglycerides Cholesterol LDL Cholesterol Direct HDL Cholesterol PTH Intact Urine pH Urine WBC (Auto) Urine Creatinine Urine Total Protein Fluid Total Protein Vancomycin Trough Rheumatoid Factor Complement C4 Miscellaneous Test Crossmatch 11/26/16 11/26/16 11/26/16 05:13 05:28 11:53 WBC RBC Hgb Hct MCV MCH MCHC RDW Plt Count Lymph % (Auto) [place] % (Auto) Lymph # [place] # Baso # Seg Neutrophils % Seg Neuts % (Manual) Lymphocytes % (Manual) Monocytes % (Manual) Eosinophils % (Manual) Basophils % (Manual) Nucleated RBC % Seg Neutrophils # Seg Neutrophils # Man Lymphocytes # (Manual) Monocytes # (Manual) Eosinophils # (Manual) Basophils # (Manual) PT INR Fibrinogen dRVVT Confirm Interp Factor V Activity POC ABG pH POC ABG pCO2 POC ABG pO2 ABG pO2 ABG HCO3 ABG Base Excess ABG Hemoglobin Oxyhemoglobin Sodium Potassium Chloride 97.8 L Carbon Dioxide BUN 37 H Creatinine 2.0 H Glucose 109 H POC Glucose 117 H 111 H Lactic Acid Calcium 7.9 L Phosphorus 1.80 L D Magnesium Direct Bilirubin AST ALT Alkaline Phosphatase Lactate Dehydrogenase Troponin T C-Reactive Protein Total Protein Albumin Prealbumin Triglycerides Cholesterol LDL Cholesterol Direct HDL Cholesterol PTH Intact Urine pH Urine WBC (Auto) Urine Creatinine Urine Total Protein Fluid Total Protein Vancomycin Trough Rheumatoid Factor Complement C4 Miscellaneous Test Crossmatch 11/26/16 11/27/16 11/27/16 17:14 04:50 06:02 WBC RBC Hgb Hct MCV MCH MCHC RDW Plt Count Lymph % (Auto) [place] % (Auto) Lymph # [place] # Baso # Seg Neutrophils % Seg Neuts % (Manual) Lymphocytes % (Manual) Monocytes % (Manual) Eosinophils % (Manual) Basophils % (Manual) Nucleated RBC % Seg Neutrophils # Seg Neutrophils # Man Lymphocytes # (Manual) Monocytes # (Manual) Eosinophils # (Manual) Basophils # (Manual) PT INR Fibrinogen dRVVT Confirm Interp Factor V Activity POC ABG pH POC ABG pCO2 POC ABG pO2 ABG pO2 75.2 L ABG HCO3 26.4 H ABG Base Excess ABG Hemoglobin 7.6 L Oxyhemoglobin 94.8 L Sodium Potassium Chloride Carbon Dioxide BUN 49 H Creatinine 2.3 H Glucose POC Glucose 115 H Lactic Acid Calcium Phosphorus 1.50 L Magnesium Direct Bilirubin AST ALT Alkaline Phosphatase Lactate Dehydrogenase Troponin T C-Reactive Protein Total Protein Albumin Prealbumin Triglycerides Cholesterol LDL Cholesterol Direct HDL Cholesterol PTH Intact Urine pH Urine WBC (Auto) Urine Creatinine Urine Total Protein Fluid Total Protein Vancomycin Trough Rheumatoid Factor Complement C4 Miscellaneous Test Crossmatch 11/27/16 11/27/16 11/27/16 06:02 11:25 17:25 WBC 11.6 H RBC 2.75 L Hgb 7.6 L Hct 23.4 L MCV MCH MCHC RDW 16.5 H Plt Count Lymph % (Auto) [place] % (Auto) Lymph # [place] # Baso # Seg Neutrophils % Seg Neuts % (Manual) Lymphocytes % (Manual) Monocytes % (Manual) Eosinophils % (Manual) Basophils % (Manual) Nucleated RBC % Seg Neutrophils # Seg Neutrophils # Man Lymphocytes # (Manual) Monocytes # (Manual) Eosinophils # (Manual) Basophils # (Manual) PT INR Fibrinogen dRVVT Confirm Interp Factor V Activity POC ABG pH POC ABG pCO2 POC ABG pO2 ABG pO2 ABG HCO3 ABG Base Excess ABG Hemoglobin Oxyhemoglobin Sodium Potassium Chloride Carbon Dioxide BUN Creatinine Glucose POC Glucose 114 H 126 H Lactic Acid Calcium Phosphorus Magnesium Direct Bilirubin AST ALT Alkaline Phosphatase Lactate Dehydrogenase Troponin T C-Reactive Protein Total Protein Albumin Prealbumin Triglycerides Cholesterol LDL Cholesterol Direct HDL Cholesterol PTH Intact Urine pH Urine WBC (Auto) Urine Creatinine Urine Total Protein Fluid Total Protein Vancomycin Trough Rheumatoid Factor Complement C4 Miscellaneous Test Crossmatch 11/28/16 11/28/16 11/28/16 04:45 05:33 05:44 WBC RBC Hgb Hct MCV MCH MCHC RDW Plt Count Lymph % (Auto) [place] % (Auto) Lymph # [place] # Baso # Seg Neutrophils % Seg Neuts % (Manual) Lymphocytes % (Manual) Monocytes % (Manual) Eosinophils % (Manual) Basophils % (Manual) Nucleated RBC % Seg Neutrophils # Seg Neutrophils # Man Lymphocytes # (Manual) Monocytes # (Manual) Eosinophils # (Manual) Basophils # (Manual) PT INR Fibrinogen dRVVT Confirm Interp Factor V Activity POC ABG pH POC ABG pCO2 POC ABG pO2 ABG pO2 99.3 H ABG HCO3 ABG Base Excess ABG Hemoglobin 8.3 L Oxyhemoglobin Sodium Potassium Chloride Carbon Dioxide BUN 63 H Creatinine 2.4 H Glucose 102 H POC Glucose 108 H Lactic Acid Calcium Phosphorus 1.80 L Magnesium Direct Bilirubin AST ALT Alkaline Phosphatase Lactate Dehydrogenase Troponin T C-Reactive Protein Total Protein Albumin Prealbumin Triglycerides Cholesterol LDL Cholesterol Direct HDL Cholesterol PTH Intact Urine pH Urine WBC (Auto) Urine Creatinine Urine Total Protein Fluid Total Protein Vancomycin Trough Rheumatoid Factor Complement C4 Miscellaneous Test Crossmatch 11/28/16 11/28/16 11/28/16 12:31 16:09 23:46 WBC RBC Hgb Hct MCV MCH MCHC RDW Plt Count Lymph % (Auto) [place] % (Auto) Lymph # [place] # Baso # Seg Neutrophils % Seg Neuts % (Manual) Lymphocytes % (Manual) Monocytes % (Manual) Eosinophils % (Manual) Basophils % (Manual) Nucleated RBC % Seg Neutrophils # Seg Neutrophils # Man Lymphocytes # (Manual) Monocytes # (Manual) Eosinophils # (Manual) Basophils # (Manual) PT INR Fibrinogen dRVVT Confirm Interp Factor V Activity POC ABG pH POC ABG pCO2 POC ABG pO2 ABG pO2 ABG HCO3 ABG Base Excess ABG Hemoglobin Oxyhemoglobin Sodium Potassium Chloride Carbon Dioxide BUN Creatinine Glucose POC Glucose 126 H 111 H 119 H Lactic Acid Calcium Phosphorus Magnesium Direct Bilirubin AST ALT Alkaline Phosphatase Lactate Dehydrogenase Troponin T C-Reactive Protein Total Protein Albumin Prealbumin Triglycerides Cholesterol LDL Cholesterol Direct HDL Cholesterol PTH Intact Urine pH Urine WBC (Auto) Urine Creatinine Urine Total Protein Fluid Total Protein Vancomycin Trough Rheumatoid Factor Complement C4 Miscellaneous Test Crossmatch 11/29/16 11/29/16 11/29/16 03:33 04:52 05:10 WBC RBC Hgb Hct MCV MCH MCHC RDW Plt Count Lymph % (Auto) [place] % (Auto) Lymph # [place] # Baso # Seg Neutrophils % Seg Neuts % (Manual) Lymphocytes % (Manual) Monocytes % (Manual) Eosinophils % (Manual) Basophils % (Manual) Nucleated RBC % Seg Neutrophils # Seg Neutrophils # Man Lymphocytes # (Manual) Monocytes # (Manual) Eosinophils # (Manual) Basophils # (Manual) PT INR Fibrinogen dRVVT Confirm Interp Factor V Activity POC ABG pH POC ABG pCO2 POC ABG pO2 ABG pO2 ABG HCO3 ABG Base Excess ABG Hemoglobin 7.0 L Oxyhemoglobin 94.9 L Sodium Potassium Chloride Carbon Dioxide BUN 73 H Creatinine 2.7 H Glucose POC Glucose 108 H Lactic Acid Calcium Phosphorus Magnesium Direct Bilirubin AST ALT Alkaline Phosphatase Lactate Dehydrogenase Troponin T C-Reactive Protein Total Protein Albumin Prealbumin Triglycerides Cholesterol LDL Cholesterol Direct HDL Cholesterol PTH Intact Urine pH Urine WBC (Auto) Urine Creatinine Urine Total Protein Fluid Total Protein Vancomycin Trough Rheumatoid Factor Complement C4 Miscellaneous Test Crossmatch 11/29/16 11/29/16 11/29/16 12:16 18:05 23:46 WBC RBC Hgb Hct MCV MCH MCHC RDW Plt Count Lymph % (Auto) [place] % (Auto) Lymph # [place] # Baso # Seg Neutrophils % Seg Neuts % (Manual) Lymphocytes % (Manual) Monocytes % (Manual) Eosinophils % (Manual) Basophils % (Manual) Nucleated RBC % Seg Neutrophils # Seg Neutrophils # Man Lymphocytes # (Manual) Monocytes # (Manual) Eosinophils # (Manual) Basophils # (Manual) PT INR Fibrinogen dRVVT Confirm Interp Factor V Activity POC ABG pH POC ABG pCO2 POC ABG pO2 ABG pO2 ABG HCO3 ABG Base Excess ABG Hemoglobin Oxyhemoglobin Sodium Potassium Chloride Carbon Dioxide BUN Creatinine Glucose POC Glucose 133 H 146 H 141 H Lactic Acid Calcium Phosphorus Magnesium Direct Bilirubin AST ALT Alkaline Phosphatase Lactate Dehydrogenase Troponin T C-Reactive Protein Total Protein Albumin Prealbumin Triglycerides Cholesterol LDL Cholesterol Direct HDL Cholesterol PTH Intact Urine pH Urine WBC (Auto) Urine Creatinine Urine Total Protein Fluid Total Protein Vancomycin Trough Rheumatoid Factor Complement C4 Miscellaneous Test Crossmatch 11/30/16 11/30/16 11/30/16 04:17 04:17 04:32 WBC 12.0 H RBC 2.80 L Hgb 7.8 L Hct 23.6 L MCV MCH MCHC RDW 16.6 H Plt Count Lymph % (Auto) [place] % (Auto) 11.3 H Lymph # [place] # 1.4 H Baso # Seg Neutrophils % Seg Neuts % (Manual) Lymphocytes % (Manual) Monocytes % (Manual) Eosinophils % (Manual) Basophils % (Manual) Nucleated RBC % Seg Neutrophils # 8.2 H Seg Neutrophils # Man Lymphocytes # (Manual) Monocytes # (Manual) Eosinophils # (Manual) Basophils # (Manual) PT INR Fibrinogen dRVVT Confirm Interp Factor V Activity POC ABG pH POC ABG pCO2 POC ABG pO2 ABG pO2 ABG HCO3 ABG Base Excess ABG Hemoglobin Oxyhemoglobin Sodium 169 H* D Potassium 5.1 H Chloride 121.5 H Carbon Dioxide BUN 34 H Creatinine 1.3 H D Glucose 133 H POC Glucose 131 H Lactic Acid Calcium 10.3 H Phosphorus Magnesium Direct Bilirubin AST ALT Alkaline Phosphatase Lactate Dehydrogenase Troponin T C-Reactive Protein Total Protein Albumin Prealbumin Triglycerides Cholesterol LDL Cholesterol Direct HDL Cholesterol PTH Intact Urine pH Urine WBC (Auto) Urine Creatinine Urine Total Protein Fluid Total Protein Vancomycin Trough Rheumatoid Factor Complement C4 Miscellaneous Test Crossmatch 11/30/16 11/30/16 11/30/16 05:45 11:10 17:26 WBC RBC Hgb Hct MCV MCH MCHC RDW Plt Count Lymph % (Auto) [place] % (Auto) Lymph # [place] # Baso # Seg Neutrophils % Seg Neuts % (Manual) Lymphocytes % (Manual) Monocytes % (Manual) Eosinophils % (Manual) Basophils % (Manual) Nucleated RBC % Seg Neutrophils # Seg Neutrophils # Man Lymphocytes # (Manual) Monocytes # (Manual) Eosinophils # (Manual) Basophils # (Manual) PT INR Fibrinogen dRVVT Confirm Interp Factor V Activity POC ABG pH POC ABG pCO2 POC ABG pO2 ABG pO2 ABG HCO3 ABG Base Excess ABG Hemoglobin Oxyhemoglobin Sodium Potassium Chloride Carbon Dioxide BUN 45 H Creatinine 1.6 H Glucose 131 H POC Glucose 146 H 134 H Lactic Acid Calcium Phosphorus Magnesium Direct Bilirubin AST ALT Alkaline Phosphatase Lactate Dehydrogenase Troponin T C-Reactive Protein Total Protein Albumin Prealbumin Triglycerides Cholesterol LDL Cholesterol Direct HDL Cholesterol PTH Intact Urine pH Urine WBC (Auto) Urine Creatinine Urine Total Protein Fluid Total Protein Vancomycin Trough Rheumatoid Factor Complement C4 Miscellaneous Test Crossmatch 11/30/16 12/01/16 12/01/16 23:35 00:06 03:35 WBC RBC Hgb Hct MCV MCH MCHC RDW Plt Count Lymph % (Auto) [place] % (Auto) Lymph # [place] # Baso # Seg Neutrophils % Seg Neuts % (Manual) Lymphocytes % (Manual) Monocytes % (Manual) Eosinophils % (Manual) Basophils % (Manual) Nucleated RBC % Seg Neutrophils # Seg Neutrophils # Man Lymphocytes # (Manual) Monocytes # (Manual) Eosinophils # (Manual) Basophils # (Manual) PT INR Fibrinogen dRVVT Confirm Interp Factor V Activity POC ABG pH POC ABG pCO2 POC ABG pO2 ABG pO2 ABG HCO3 ABG Base Excess ABG Hemoglobin 6.9 L Oxyhemoglobin Sodium Potassium Chloride Carbon Dioxide BUN 58 H Creatinine 1.8 H Glucose 146 H POC Glucose 151 H Lactic Acid Calcium Phosphorus Magnesium Direct Bilirubin AST ALT Alkaline Phosphatase Lactate Dehydrogenase Troponin T C-Reactive Protein Total Protein Albumin Prealbumin Triglycerides Cholesterol LDL Cholesterol Direct HDL Cholesterol PTH Intact Urine pH Urine WBC (Auto) Urine Creatinine Urine Total Protein Fluid Total Protein Vancomycin Trough Rheumatoid Factor Complement C4 Miscellaneous Test Crossmatch 12/01/16 12/01/16 12/01/16 03:35 05:47 11:52 WBC 12.3 H RBC 2.82 L Hgb 7.8 L Hct 23.7 L MCV MCH MCHC RDW 16.7 H Plt Count Lymph % (Auto) [place] % (Auto) 9.8 H Lymph # [place] # 1.2 H Baso # Seg Neutrophils % Seg Neuts % (Manual) Lymphocytes % (Manual) Monocytes % (Manual) Eosinophils % (Manual) Basophils % (Manual) Nucleated RBC % Seg Neutrophils # 8.4 H Seg Neutrophils # Man Lymphocytes # (Manual) Monocytes # (Manual) Eosinophils # (Manual) Basophils # (Manual) PT INR Fibrinogen dRVVT Confirm Interp Factor V Activity POC ABG pH POC ABG pCO2 POC ABG pO2 ABG pO2 ABG HCO3 ABG Base Excess ABG Hemoglobin Oxyhemoglobin Sodium Potassium Chloride Carbon Dioxide BUN Creatinine Glucose POC Glucose 152 H 152 H Lactic Acid Calcium Phosphorus Magnesium Direct Bilirubin AST ALT Alkaline Phosphatase Lactate Dehydrogenase Troponin T C-Reactive Protein Total Protein Albumin Prealbumin Triglycerides Cholesterol LDL Cholesterol Direct HDL Cholesterol PTH Intact Urine pH Urine WBC (Auto) Urine Creatinine Urine Total Protein Fluid Total Protein Vancomycin Trough Rheumatoid Factor Complement C4 Miscellaneous Test Crossmatch 12/01/16 12/01/16 12/02/16 17:40 23:41 05:00 WBC RBC Hgb Hct MCV MCH MCHC RDW Plt Count Lymph % (Auto) [place] % (Auto) Lymph # [place] # Baso # Seg Neutrophils % Seg Neuts % (Manual) Lymphocytes % (Manual) Monocytes % (Manual) Eosinophils % (Manual) Basophils % (Manual) Nucleated RBC % Seg Neutrophils # Seg Neutrophils # Man Lymphocytes # (Manual) Monocytes # (Manual) Eosinophils # (Manual) Basophils # (Manual) PT INR Fibrinogen dRVVT Confirm Interp Factor V Activity POC ABG pH POC ABG pCO2 POC ABG pO2 ABG pO2 ABG HCO3 ABG Base Excess ABG Hemoglobin Oxyhemoglobin Sodium Potassium Chloride Carbon Dioxide BUN 45 H Creatinine Glucose 115 H POC Glucose 140 H 144 H Lactic Acid Calcium Phosphorus Magnesium Direct Bilirubin AST ALT Alkaline Phosphatase Lactate Dehydrogenase Troponin T C-Reactive Protein Total Protein Albumin Prealbumin Triglycerides Cholesterol LDL Cholesterol Direct HDL Cholesterol PTH Intact Urine pH Urine WBC (Auto) Urine Creatinine Urine Total Protein Fluid Total Protein Vancomycin Trough Rheumatoid Factor Complement C4 Miscellaneous Test Crossmatch 12/02/16 12/02/16 12/02/16 05:31 11:20 17:38 WBC RBC Hgb Hct MCV MCH MCHC RDW Plt Count Lymph % (Auto) [place] % (Auto) Lymph # [place] # Baso # Seg Neutrophils % Seg Neuts % (Manual) Lymphocytes % (Manual) Monocytes % (Manual) Eosinophils % (Manual) Basophils % (Manual) Nucleated RBC % Seg Neutrophils # Seg Neutrophils # Man Lymphocytes # (Manual) Monocytes # (Manual) Eosinophils # (Manual) Basophils # (Manual) PT INR Fibrinogen dRVVT Confirm Interp Factor V Activity POC ABG pH POC ABG pCO2 POC ABG pO2 ABG pO2 ABG HCO3 ABG Base Excess ABG Hemoglobin Oxyhemoglobin Sodium Potassium Chloride Carbon Dioxide BUN Creatinine Glucose POC Glucose 136 H 177 H 139 H Lactic Acid Calcium Phosphorus Magnesium Direct Bilirubin AST ALT Alkaline Phosphatase Lactate Dehydrogenase Troponin T C-Reactive Protein Total Protein Albumin Prealbumin Triglycerides Cholesterol LDL Cholesterol Direct HDL Cholesterol PTH Intact Urine pH Urine WBC (Auto) Urine Creatinine Urine Total Protein Fluid Total Protein Vancomycin Trough Rheumatoid Factor Complement C4 Miscellaneous Test Crossmatch 12/02/16 12/03/16 12/03/16 23:43 04:00 04:00 WBC 20.4 H RBC 2.74 L Hgb 7.4 L Hct 23.6 L MCV MCH 27 L MCHC RDW 17.1 H Plt Count Lymph % (Auto) [place] % (Auto) Lymph # [place] # Baso # Seg Neutrophils % Seg Neuts % (Manual) 31.0 L Lymphocytes % (Manual) Monocytes % (Manual) Eosinophils % (Manual) Basophils % (Manual) Nucleated RBC % Seg Neutrophils # Seg Neutrophils # Man Lymphocytes # (Manual) Monocytes # (Manual) Eosinophils # (Manual) Basophils # (Manual) PT INR Fibrinogen dRVVT Confirm Interp Factor V Activity POC ABG pH POC ABG pCO2 POC ABG pO2 ABG pO2 ABG HCO3 ABG Base Excess ABG Hemoglobin Oxyhemoglobin Sodium Potassium Chloride Carbon Dioxide BUN 61 H Creatinine 1.6 H Glucose 119 H POC Glucose 158 H Lactic Acid Calcium Phosphorus Magnesium Direct Bilirubin AST ALT Alkaline Phosphatase Lactate Dehydrogenase Troponin T C-Reactive Protein Total Protein Albumin Prealbumin Triglycerides Cholesterol LDL Cholesterol Direct HDL Cholesterol PTH Intact Urine pH Urine WBC (Auto) Urine Creatinine Urine Total Protein Fluid Total Protein Vancomycin Trough Rheumatoid Factor Complement C4 Miscellaneous Test Crossmatch 12/03/16 12/03/16 12/03/16 05:02 12:11 18:16 WBC RBC Hgb Hct MCV MCH MCHC RDW Plt Count Lymph % (Auto) [place] % (Auto) Lymph # [place] # Baso # Seg Neutrophils % Seg Neuts % (Manual) Lymphocytes % (Manual) Monocytes % (Manual) Eosinophils % (Manual) Basophils % (Manual) Nucleated RBC % Seg Neutrophils # Seg Neutrophils # Man Lymphocytes # (Manual) Monocytes # (Manual) Eosinophils # (Manual) Basophils # (Manual) PT INR Fibrinogen dRVVT Confirm Interp Factor V Activity POC ABG pH POC ABG pCO2 POC ABG pO2 ABG pO2 ABG HCO3 ABG Base Excess ABG Hemoglobin Oxyhemoglobin Sodium Potassium Chloride Carbon Dioxide BUN Creatinine Glucose POC Glucose 146 H 157 H 124 H Lactic Acid Calcium Phosphorus Magnesium Direct Bilirubin AST ALT Alkaline Phosphatase Lactate Dehydrogenase Troponin T C-Reactive Protein Total Protein Albumin Prealbumin Triglycerides Cholesterol LDL Cholesterol Direct HDL Cholesterol PTH Intact Urine pH Urine WBC (Auto) Urine Creatinine Urine Total Protein Fluid Total Protein Vancomycin Trough Rheumatoid Factor Complement C4 Miscellaneous Test Crossmatch 12/03/16 12/04/16 12/04/16 23:41 04:00 04:45 WBC RBC Hgb Hct MCV MCH MCHC RDW Plt Count Lymph % (Auto) [place] % (Auto) Lymph # [place] # Baso # Seg Neutrophils % Seg Neuts % (Manual) Lymphocytes % (Manual) Monocytes % (Manual) Eosinophils % (Manual) Basophils % (Manual) Nucleated RBC % Seg Neutrophils # Seg Neutrophils # Man Lymphocytes # (Manual) Monocytes # (Manual) Eosinophils # (Manual) Basophils # (Manual) PT INR Fibrinogen dRVVT Confirm Interp Factor V Activity POC ABG pH POC ABG pCO2 POC ABG pO2 ABG pO2 ABG HCO3 ABG Base Excess ABG Hemoglobin Oxyhemoglobin Sodium Potassium Chloride Carbon Dioxide BUN 76 H Creatinine 1.6 H Glucose POC Glucose 130 H 136 H Lactic Acid Calcium Phosphorus Magnesium Direct Bilirubin AST ALT Alkaline Phosphatase 155 H Lactate Dehydrogenase Troponin T C-Reactive Protein Total Protein 5.5 L Albumin 1.5 L Prealbumin Triglycerides Cholesterol LDL Cholesterol Direct HDL Cholesterol PTH Intact Urine pH Urine WBC (Auto) Urine Creatinine Urine Total Protein Fluid Total Protein Vancomycin Trough Rheumatoid Factor Complement C4 Miscellaneous Test Crossmatch 12/04/16 12/04/16 12/05/16 12:08 17:23 00:10 WBC RBC Hgb Hct MCV MCH MCHC RDW Plt Count Lymph % (Auto) [place] % (Auto) Lymph # [place] # Baso # Seg Neutrophils % Seg Neuts % (Manual) Lymphocytes % (Manual) Monocytes % (Manual) Eosinophils % (Manual) Basophils % (Manual) Nucleated RBC % Seg Neutrophils # Seg Neutrophils # Man Lymphocytes # (Manual) Monocytes # (Manual) Eosinophils # (Manual) Basophils # (Manual) PT INR Fibrinogen dRVVT Confirm Interp Factor V Activity POC ABG pH POC ABG pCO2 POC ABG pO2 ABG pO2 ABG HCO3 ABG Base Excess ABG Hemoglobin Oxyhemoglobin Sodium Potassium Chloride Carbon Dioxide BUN Creatinine Glucose POC Glucose 114 H 129 H 124 H Lactic Acid Calcium Phosphorus Magnesium Direct Bilirubin AST ALT Alkaline Phosphatase Lactate Dehydrogenase Troponin T C-Reactive Protein Total Protein Albumin Prealbumin Triglycerides Cholesterol LDL Cholesterol Direct HDL Cholesterol PTH Intact Urine pH Urine WBC (Auto) Urine Creatinine Urine Total Protein Fluid Total Protein Vancomycin Trough Rheumatoid Factor Complement C4 Miscellaneous Test Crossmatch 12/05/16 12/05/16 12/05/16 05:00 05:00 05:18 WBC RBC Hgb Hct MCV MCH MCHC RDW Plt Count Lymph % (Auto) [place] % (Auto) Lymph # [place] # Baso # Seg Neutrophils % Seg Neuts % (Manual) Lymphocytes % (Manual) Monocytes % (Manual) Eosinophils % (Manual) Basophils % (Manual) Nucleated RBC % Seg Neutrophils # Seg Neutrophils # Man Lymphocytes # (Manual) Monocytes # (Manual) Eosinophils # (Manual) Basophils # (Manual) PT INR Fibrinogen dRVVT Confirm Interp Factor V Activity POC ABG pH POC ABG pCO2 POC ABG pO2 ABG pO2 ABG HCO3 ABG Base Excess ABG Hemoglobin Oxyhemoglobin Sodium Potassium Chloride Carbon Dioxide 21 L BUN 85 H Creatinine 1.9 H Glucose 131 H POC Glucose 154 H Lactic Acid Calcium Phosphorus Magnesium Direct Bilirubin AST ALT Alkaline Phosphatase Lactate Dehydrogenase Troponin T C-Reactive Protein 19.30 H Total Protein Albumin Prealbumin Triglycerides Cholesterol LDL Cholesterol Direct HDL Cholesterol PTH Intact Urine pH Urine WBC (Auto) Urine Creatinine Urine Total Protein Fluid Total Protein Vancomycin Trough Rheumatoid Factor Complement C4 Miscellaneous Test Crossmatch 12/05/16 12/05/16 12/05/16 11:43 17:46 23:25 WBC RBC Hgb Hct MCV MCH MCHC RDW Plt Count Lymph % (Auto) [place] % (Auto) Lymph # [place] # Baso # Seg Neutrophils % Seg Neuts % (Manual) Lymphocytes % (Manual) Monocytes % (Manual) Eosinophils % (Manual) Basophils % (Manual) Nucleated RBC % Seg Neutrophils # Seg Neutrophils # Man Lymphocytes # (Manual) Monocytes # (Manual) Eosinophils # (Manual) Basophils # (Manual) PT INR Fibrinogen dRVVT Confirm Interp Factor V Activity POC ABG pH POC ABG pCO2 POC ABG pO2 ABG pO2 ABG HCO3 ABG Base Excess ABG Hemoglobin Oxyhemoglobin Sodium Potassium Chloride Carbon Dioxide BUN Creatinine Glucose POC Glucose 117 H 113 H 111 H Lactic Acid Calcium Phosphorus Magnesium Direct Bilirubin AST ALT Alkaline Phosphatase Lactate Dehydrogenase Troponin T C-Reactive Protein Total Protein Albumin Prealbumin Triglycerides Cholesterol LDL Cholesterol Direct HDL Cholesterol PTH Intact Urine pH Urine WBC (Auto) Urine Creatinine Urine Total Protein Fluid Total Protein Vancomycin Trough Rheumatoid Factor Complement C4 Miscellaneous Test Crossmatch 12/05/16 12/06/16 12/06/16 Unknown 04:58 06:00 WBC RBC Hgb Hct MCV MCH MCHC RDW Plt Count Lymph % (Auto) [place] % (Auto) Lymph # [place] # Baso # Seg Neutrophils % Seg Neuts % (Manual) Lymphocytes % (Manual) Monocytes % (Manual) Eosinophils % (Manual) Basophils % (Manual) Nucleated RBC % Seg Neutrophils # Seg Neutrophils # Man Lymphocytes # (Manual) Monocytes # (Manual) Eosinophils # (Manual) Basophils # (Manual) PT INR Fibrinogen dRVVT Confirm Interp Factor V Activity POC ABG pH POC ABG pCO2 POC ABG pO2 ABG pO2 75.2 L ABG HCO3 ABG Base Excess -3.4 L ABG Hemoglobin 7.4 L Oxyhemoglobin 94.5 L Sodium Potassium Chloride Carbon Dioxide 20 L BUN 99 H Creatinine 2.1 H Glucose 126 H POC Glucose 145 H Lactic Acid Calcium Phosphorus 4.80 H Magnesium Direct Bilirubin AST ALT Alkaline Phosphatase Lactate Dehydrogenase Troponin T C-Reactive Protein Total Protein Albumin Prealbumin Triglycerides Cholesterol LDL Cholesterol Direct HDL Cholesterol PTH Intact Urine pH Urine WBC (Auto) Urine Creatinine Urine Total Protein Fluid Total Protein Vancomycin Trough Rheumatoid Factor Complement C4 Miscellaneous Test Crossmatch 12/06/16 12/06/16 12/06/16 06:46 11:54 17:55 WBC RBC Hgb 8.3 L Hct 26.4 L MCV MCH MCHC RDW Plt Count Lymph % (Auto) [place] % (Auto) Lymph # [place] # Baso # Seg Neutrophils % Seg Neuts % (Manual) Lymphocytes % (Manual) Monocytes % (Manual) Eosinophils % (Manual) Basophils % (Manual) Nucleated RBC % Seg Neutrophils # Seg Neutrophils # Man Lymphocytes # (Manual) Monocytes # (Manual) Eosinophils # (Manual) Basophils # (Manual) PT INR Fibrinogen dRVVT Confirm Interp Factor V Activity POC ABG pH POC ABG pCO2 POC ABG pO2 ABG pO2 ABG HCO3 ABG Base Excess ABG Hemoglobin Oxyhemoglobin Sodium Potassium Chloride Carbon Dioxide BUN Creatinine Glucose POC Glucose 126 H 157 H Lactic Acid Calcium Phosphorus Magnesium Direct Bilirubin AST ALT Alkaline Phosphatase Lactate Dehydrogenase Troponin T C-Reactive Protein Total Protein Albumin Prealbumin Triglycerides Cholesterol LDL Cholesterol Direct HDL Cholesterol PTH Intact Urine pH Urine WBC (Auto) Urine Creatinine Urine Total Protein Fluid Total Protein Vancomycin Trough Rheumatoid Factor Complement C4 Miscellaneous Test Crossmatch 12/06/16 12/07/16 12/07/16 23:59 05:34 06:30 WBC RBC Hgb Hct MCV MCH MCHC RDW Plt Count Lymph % (Auto) [place] % (Auto) Lymph # [place] # Baso # Seg Neutrophils % Seg Neuts % (Manual) Lymphocytes % (Manual) Monocytes % (Manual) Eosinophils % (Manual) Basophils % (Manual) Nucleated RBC % Seg Neutrophils # Seg Neutrophils # Man Lymphocytes # (Manual) Monocytes # (Manual) Eosinophils # (Manual) Basophils # (Manual) PT INR Fibrinogen dRVVT Confirm Interp Factor V Activity POC ABG pH POC ABG pCO2 POC ABG pO2 ABG pO2 ABG HCO3 ABG Base Excess ABG Hemoglobin Oxyhemoglobin Sodium Potassium Chloride Carbon Dioxide BUN 67 H Creatinine 1.4 H Glucose 126 H POC Glucose 129 H 129 H Lactic Acid Calcium Phosphorus Magnesium Direct Bilirubin AST ALT Alkaline Phosphatase Lactate Dehydrogenase Troponin T C-Reactive Protein Total Protein Albumin Prealbumin Triglycerides Cholesterol LDL Cholesterol Direct HDL Cholesterol PTH Intact Urine pH Urine WBC (Auto) Urine Creatinine Urine Total Protein Fluid Total Protein Vancomycin Trough Rheumatoid Factor Complement C4 Miscellaneous Test Crossmatch 12/07/16 12/07/16 12/07/16 06:30 08:00 09:45 WBC 18.8 H RBC 2.52 L Hgb 6.9 L 6.8 L Hct 21.2 L 21.1 L MCV MCH 27 L MCHC RDW 18.0 H Plt Count Lymph % (Auto) [place] % (Auto) 9.9 H Lymph # [place] # 1.9 H Baso # Seg Neutrophils % 71.8 H Seg Neuts % (Manual) Lymphocytes % (Manual) Monocytes % (Manual) Eosinophils % (Manual) Basophils % (Manual) Nucleated RBC % Seg Neutrophils # 13.5 H Seg Neutrophils # Man Lymphocytes # (Manual) Monocytes # (Manual) Eosinophils # (Manual) Basophils # (Manual) PT INR Fibrinogen dRVVT Confirm Interp Factor V Activity POC ABG pH POC ABG pCO2 POC ABG pO2 ABG pO2 ABG HCO3 ABG Base Excess ABG Hemoglobin Oxyhemoglobin Sodium Potassium Chloride Carbon Dioxide BUN Creatinine Glucose POC Glucose Lactic Acid Calcium Phosphorus Magnesium Direct Bilirubin AST ALT Alkaline Phosphatase Lactate Dehydrogenase Troponin T C-Reactive Protein Total Protein Albumin Prealbumin Triglycerides Cholesterol LDL Cholesterol Direct HDL Cholesterol PTH Intact Urine pH Urine WBC (Auto) Urine Creatinine Urine Total Protein Fluid Total Protein Vancomycin Trough Rheumatoid Factor Complement C4 Miscellaneous Test Crossmatch See Detail 12/07/16 12/07/16 12/07/16 11:44 18:19 23:59 WBC RBC Hgb Hct MCV MCH MCHC RDW Plt Count Lymph % (Auto) [place] % (Auto) Lymph # [place] # Baso # Seg Neutrophils % Seg Neuts % (Manual) Lymphocytes % (Manual) Monocytes % (Manual) Eosinophils % (Manual) Basophils % (Manual) Nucleated RBC % Seg Neutrophils # Seg Neutrophils # Man Lymphocytes # (Manual) Monocytes # (Manual) Eosinophils # (Manual) Basophils # (Manual) PT INR Fibrinogen dRVVT Confirm Interp Factor V Activity POC ABG pH POC ABG pCO2 POC ABG pO2 ABG pO2 ABG HCO3 ABG Base Excess ABG Hemoglobin Oxyhemoglobin Sodium Potassium Chloride Carbon Dioxide BUN Creatinine Glucose POC Glucose 137 H 138 H 133 H Lactic Acid Calcium Phosphorus Magnesium Direct Bilirubin AST ALT Alkaline Phosphatase Lactate Dehydrogenase Troponin T C-Reactive Protein Total Protein Albumin Prealbumin Triglycerides Cholesterol LDL Cholesterol Direct HDL Cholesterol PTH Intact Urine pH Urine WBC (Auto) Urine Creatinine Urine Total Protein Fluid Total Protein Vancomycin Trough Rheumatoid Factor Complement C4 Miscellaneous Test Crossmatch 12/08/16 12/08/16 12/08/16 05:25 05:30 05:30 WBC 23.8 H RBC 2.88 L Hgb 8.1 L Hct 24.3 L MCV MCH MCHC RDW 16.7 H Plt Count Lymph % (Auto) [place] % (Auto) Lymph # [place] # Baso # Seg Neutrophils % Seg Neuts % (Manual) 76.0 H Lymphocytes % (Manual) 9.0 L Monocytes % (Manual) 9.0 H Eosinophils % (Manual) Basophils % (Manual) Nucleated RBC % Seg Neutrophils # Seg Neutrophils # Man 18.1 H Lymphocytes # (Manual) Monocytes # (Manual) 2.1 H Eosinophils # (Manual) Basophils # (Manual) PT INR Fibrinogen dRVVT Confirm Interp Factor V Activity POC ABG pH POC ABG pCO2 POC ABG pO2 ABG pO2 ABG HCO3 ABG Base Excess ABG Hemoglobin Oxyhemoglobin Sodium Potassium Chloride Carbon Dioxide 21 L BUN 76 H Creatinine 1.6 H Glucose 133 H POC Glucose 177 H Lactic Acid Calcium Phosphorus Magnesium Direct Bilirubin AST ALT Alkaline Phosphatase Lactate Dehydrogenase Troponin T C-Reactive Protein Total Protein Albumin Prealbumin Triglycerides Cholesterol LDL Cholesterol Direct HDL Cholesterol PTH Intact Urine pH Urine WBC (Auto) Urine Creatinine Urine Total Protein Fluid Total Protein Vancomycin Trough Rheumatoid Factor Complement C4 Miscellaneous Test Crossmatch 12/08/16 12/08/16 12/09/16 11:45 18:00 00:00 WBC RBC Hgb Hct MCV MCH MCHC RDW Plt Count Lymph % (Auto) [place] % (Auto) Lymph # [place] # Baso # Seg Neutrophils % Seg Neuts % (Manual) Lymphocytes % (Manual) Monocytes % (Manual) Eosinophils % (Manual) Basophils % (Manual) Nucleated RBC % Seg Neutrophils # Seg Neutrophils # Man Lymphocytes # (Manual) Monocytes # (Manual) Eosinophils # (Manual) Basophils # (Manual) PT INR Fibrinogen dRVVT Confirm Interp Factor V Activity POC ABG pH POC ABG pCO2 POC ABG pO2 ABG pO2 ABG HCO3 ABG Base Excess ABG Hemoglobin Oxyhemoglobin Sodium Potassium Chloride Carbon Dioxide BUN Creatinine Glucose POC Glucose 163 H 123 H 137 H Lactic Acid Calcium Phosphorus Magnesium Direct Bilirubin AST ALT Alkaline Phosphatase Lactate Dehydrogenase Troponin T C-Reactive Protein Total Protein Albumin Prealbumin Triglycerides Cholesterol LDL Cholesterol Direct HDL Cholesterol PTH Intact Urine pH Urine WBC (Auto) Urine Creatinine Urine Total Protein Fluid Total Protein Vancomycin Trough Rheumatoid Factor Complement C4 Miscellaneous Test Crossmatch 12/09/16 12/09/16 12/09/16 05:34 06:00 06:00 WBC 15.5 H RBC 2.87 L Hgb 8.0 L Hct 24.2 L MCV MCH MCHC RDW 17.2 H Plt Count Lymph % (Auto) [place] % (Auto) 11.6 H Lymph # [place] # 1.8 H Baso # Seg Neutrophils % 70.8 H Seg Neuts % (Manual) Lymphocytes % (Manual) Monocytes % (Manual) Eosinophils % (Manual) Basophils % (Manual) Nucleated RBC % Seg Neutrophils # 11.0 H Seg Neutrophils # Man Lymphocytes # (Manual) Monocytes # (Manual) Eosinophils # (Manual) Basophils # (Manual) PT INR Fibrinogen dRVVT Confirm Interp Factor V Activity POC ABG pH POC ABG pCO2 POC ABG pO2 ABG pO2 ABG HCO3 ABG Base Excess ABG Hemoglobin Oxyhemoglobin Sodium Potassium Chloride Carbon Dioxide BUN 51 H Creatinine Glucose 117 H POC Glucose 136 H Lactic Acid Calcium Phosphorus Magnesium Direct Bilirubin AST ALT Alkaline Phosphatase Lactate Dehydrogenase Troponin T C-Reactive Protein Total Protein Albumin Prealbumin Triglycerides Cholesterol LDL Cholesterol Direct HDL Cholesterol PTH Intact Urine pH Urine WBC (Auto) Urine Creatinine Urine Total Protein Fluid Total Protein Vancomycin Trough Rheumatoid Factor Complement C4 Miscellaneous Test Crossmatch 12/09/16 12/09/16 12/09/16 12:29 17:52 23:10 WBC RBC Hgb Hct MCV MCH MCHC RDW Plt Count Lymph % (Auto) [place] % (Auto) Lymph # [place] # Baso # Seg Neutrophils % Seg Neuts % (Manual) Lymphocytes % (Manual) Monocytes % (Manual) Eosinophils % (Manual) Basophils % (Manual) Nucleated RBC % Seg Neutrophils # Seg Neutrophils # Man Lymphocytes # (Manual) Monocytes # (Manual) Eosinophils # (Manual) Basophils # (Manual) PT INR Fibrinogen dRVVT Confirm Interp Factor V Activity POC ABG pH POC ABG pCO2 POC ABG pO2 ABG pO2 ABG HCO3 ABG Base Excess ABG Hemoglobin Oxyhemoglobin Sodium Potassium Chloride Carbon Dioxide BUN Creatinine Glucose POC Glucose 139 H 140 H 129 H Lactic Acid Calcium Phosphorus Magnesium Direct Bilirubin AST ALT Alkaline Phosphatase Lactate Dehydrogenase Troponin T C-Reactive Protein Total Protein Albumin Prealbumin Triglycerides Cholesterol LDL Cholesterol Direct HDL Cholesterol PTH Intact Urine pH Urine WBC (Auto) Urine Creatinine Urine Total Protein Fluid Total Protein Vancomycin Trough Rheumatoid Factor Complement C4 Miscellaneous Test Crossmatch 12/10/16 12/10/16 12/10/16 05:00 05:00 06:54 WBC 15.7 H RBC 2.87 L Hgb 8.2 L Hct 24.4 L MCV MCH MCHC RDW 17.2 H Plt Count Lymph % (Auto) [place] % (Auto) 8.3 H Lymph # [place] # 1.3 H Baso # Seg Neutrophils % 72.8 H Seg Neuts % (Manual) Lymphocytes % (Manual) Monocytes % (Manual) Eosinophils % (Manual) Basophils % (Manual) Nucleated RBC % Seg Neutrophils # 11.4 H Seg Neutrophils # Man Lymphocytes # (Manual) Monocytes # (Manual) Eosinophils # (Manual) Basophils # (Manual) PT INR Fibrinogen dRVVT Confirm Interp Factor V Activity POC ABG pH POC ABG pCO2 POC ABG pO2 ABG pO2 ABG HCO3 ABG Base Excess ABG Hemoglobin Oxyhemoglobin Sodium Potassium Chloride Carbon Dioxide BUN 64 H Creatinine 1.4 H Glucose 134 H POC Glucose 154 H Lactic Acid Calcium Phosphorus Magnesium Direct Bilirubin AST ALT Alkaline Phosphatase Lactate Dehydrogenase Troponin T C-Reactive Protein Total Protein Albumin Prealbumin Triglycerides Cholesterol LDL Cholesterol Direct HDL Cholesterol PTH Intact Urine pH Urine WBC (Auto) Urine Creatinine Urine Total Protein Fluid Total Protein Vancomycin Trough Rheumatoid Factor Complement C4 Miscellaneous Test Crossmatch 12/10/16 12/10/16 12/10/16 11:58 17:29 23:52 WBC RBC Hgb Hct MCV MCH MCHC RDW Plt Count Lymph % (Auto) [place] % (Auto) Lymph # [place] # Baso # Seg Neutrophils % Seg Neuts % (Manual) Lymphocytes % (Manual) Monocytes % (Manual) Eosinophils % (Manual) Basophils % (Manual) Nucleated RBC % Seg Neutrophils # Seg Neutrophils # Man Lymphocytes # (Manual) Monocytes # (Manual) Eosinophils # (Manual) Basophils # (Manual) PT INR Fibrinogen dRVVT Confirm Interp Factor V Activity POC ABG pH POC ABG pCO2 POC ABG pO2 ABG pO2 ABG HCO3 ABG Base Excess ABG Hemoglobin Oxyhemoglobin Sodium Potassium Chloride Carbon Dioxide BUN Creatinine Glucose POC Glucose 144 H 163 H 125 H Lactic Acid Calcium Phosphorus Magnesium Direct Bilirubin AST ALT Alkaline Phosphatase Lactate Dehydrogenase Troponin T C-Reactive Protein Total Protein Albumin Prealbumin Triglycerides Cholesterol LDL Cholesterol Direct HDL Cholesterol PTH Intact Urine pH Urine WBC (Auto) Urine Creatinine Urine Total Protein Fluid Total Protein Vancomycin Trough Rheumatoid Factor Complement C4 Miscellaneous Test Crossmatch 12/11/16 12/11/16 12/11/16 05:38 06:30 06:30 WBC 14.4 H RBC 2.76 L Hgb 7.7 L Hct 23.4 L MCV MCH MCHC RDW 17.2 H Plt Count Lymph % (Auto) [place] % (Auto) 8.8 H Lymph # [place] # 1.3 H Baso # Seg Neutrophils % 72.5 H Seg Neuts % (Manual) Lymphocytes % (Manual) Monocytes % (Manual) Eosinophils % (Manual) Basophils % (Manual) Nucleated RBC % Seg Neutrophils # 10.5 H Seg Neutrophils # Man Lymphocytes # (Manual) Monocytes # (Manual) Eosinophils # (Manual) Basophils # (Manual) PT INR Fibrinogen dRVVT Confirm Interp Factor V Activity POC ABG pH POC ABG pCO2 POC ABG pO2 ABG pO2 ABG HCO3 ABG Base Excess ABG Hemoglobin Oxyhemoglobin Sodium Potassium Chloride Carbon Dioxide BUN 43 H Creatinine Glucose 124 H POC Glucose 141 H Lactic Acid Calcium 8.3 L Phosphorus Magnesium 1.60 L Direct Bilirubin AST ALT Alkaline Phosphatase Lactate Dehydrogenase Troponin T C-Reactive Protein Total Protein Albumin Prealbumin Triglycerides Cholesterol LDL Cholesterol Direct HDL Cholesterol PTH Intact Urine pH Urine WBC (Auto) Urine Creatinine Urine Total Protein Fluid Total Protein Vancomycin Trough Rheumatoid Factor Complement C4 Miscellaneous Test Crossmatch 12/11/16 12/11/16 12/11/16 11:15 17:59 23:48 WBC RBC Hgb Hct MCV MCH MCHC RDW Plt Count Lymph % (Auto) [place] % (Auto) Lymph # [place] # Baso # Seg Neutrophils % Seg Neuts % (Manual) Lymphocytes % (Manual) Monocytes % (Manual) Eosinophils % (Manual) Basophils % (Manual) Nucleated RBC % Seg Neutrophils # Seg Neutrophils # Man Lymphocytes # (Manual) Monocytes # (Manual) Eosinophils # (Manual) Basophils # (Manual) PT INR Fibrinogen dRVVT Confirm Interp Factor V Activity POC ABG pH POC ABG pCO2 POC ABG pO2 ABG pO2 ABG HCO3 ABG Base Excess ABG Hemoglobin Oxyhemoglobin Sodium Potassium Chloride Carbon Dioxide BUN Creatinine Glucose POC Glucose 188 H 106 H 119 H Lactic Acid Calcium Phosphorus Magnesium Direct Bilirubin AST ALT Alkaline Phosphatase Lactate Dehydrogenase Troponin T C-Reactive Protein Total Protein Albumin Prealbumin Triglycerides Cholesterol LDL Cholesterol Direct HDL Cholesterol PTH Intact Urine pH Urine WBC (Auto) Urine Creatinine Urine Total Protein Fluid Total Protein Vancomycin Trough Rheumatoid Factor Complement C4 Miscellaneous Test Crossmatch 12/12/16 12/12/16 12/12/16 05:00 06:01 12:20 WBC 16.7 H RBC 2.87 L Hgb 8.0 L Hct 24.2 L MCV MCH MCHC RDW 17.6 H Plt Count Lymph % (Auto) [place] % (Auto) Lymph # [place] # 1.2 H Baso # Seg Neutrophils % 75.3 H Seg Neuts % (Manual) Lymphocytes % (Manual) Monocytes % (Manual) Eosinophils % (Manual) Basophils % (Manual) Nucleated RBC % Seg Neutrophils # 12.6 H Seg Neutrophils # Man Lymphocytes # (Manual) Monocytes # (Manual) Eosinophils # (Manual) Basophils # (Manual) PT INR Fibrinogen dRVVT Confirm Interp Factor V Activity POC ABG pH POC ABG pCO2 POC ABG pO2 ABG pO2 ABG HCO3 ABG Base Excess ABG Hemoglobin Oxyhemoglobin Sodium Potassium Chloride Carbon Dioxide BUN Creatinine Glucose POC Glucose 134 H 149 H Lactic Acid Calcium Phosphorus Magnesium Direct Bilirubin AST ALT Alkaline Phosphatase Lactate Dehydrogenase Troponin T C-Reactive Protein Total Protein Albumin Prealbumin Triglycerides Cholesterol LDL Cholesterol Direct HDL Cholesterol PTH Intact Urine pH Urine WBC (Auto) Urine Creatinine Urine Total Protein Fluid Total Protein Vancomycin Trough Rheumatoid Factor Complement C4 Miscellaneous Test Crossmatch 12/12/16 12/12/16 12/12/16 17:38 23:01 Unknown WBC RBC Hgb Hct MCV MCH MCHC RDW Plt Count Lymph % (Auto) [place] % (Auto) Lymph # [place] # Baso # Seg Neutrophils % Seg Neuts % (Manual) Lymphocytes % (Manual) Monocytes % (Manual) Eosinophils % (Manual) Basophils % (Manual) Nucleated RBC % Seg Neutrophils # Seg Neutrophils # Man Lymphocytes # (Manual) Monocytes # (Manual) Eosinophils # (Manual) Basophils # (Manual) PT INR Fibrinogen dRVVT Confirm Interp Factor V Activity POC ABG pH POC ABG pCO2 POC ABG pO2 ABG pO2 ABG HCO3 ABG Base Excess ABG Hemoglobin Oxyhemoglobin Sodium Potassium Chloride Carbon Dioxide BUN 60 H Creatinine 1.3 H Glucose 126 H POC Glucose 127 H 144 H Lactic Acid Calcium Phosphorus Magnesium Direct Bilirubin AST ALT Alkaline Phosphatase Lactate Dehydrogenase Troponin T C-Reactive Protein Total Protein Albumin Prealbumin Triglycerides Cholesterol LDL Cholesterol Direct HDL Cholesterol PTH Intact Urine pH Urine WBC (Auto) Urine Creatinine Urine Total Protein Fluid Total Protein Vancomycin Trough Rheumatoid Factor Complement C4 Miscellaneous Test Crossmatch 12/13/16 12/13/16 12/13/16 04:00 04:00 05:19 WBC 18.7 H RBC 2.89 L Hgb 8.3 L Hct 24.6 L MCV MCH MCHC RDW 17.5 H Plt Count Lymph % (Auto) [place] % (Auto) Lymph # [place] # 1.3 H Baso # Seg Neutrophils % 71.5 H Seg Neuts % (Manual) Lymphocytes % (Manual) Monocytes % (Manual) Eosinophils % (Manual) Basophils % (Manual) Nucleated RBC % Seg Neutrophils # 13.4 H Seg Neutrophils # Man Lymphocytes # (Manual) Monocytes # (Manual) Eosinophils # (Manual) Basophils # (Manual) PT INR Fibrinogen dRVVT Confirm Interp Factor V Activity POC ABG pH POC ABG pCO2 POC ABG pO2 ABG pO2 ABG HCO3 ABG Base Excess ABG Hemoglobin Oxyhemoglobin Sodium Potassium Chloride Carbon Dioxide BUN 73 H Creatinine 1.5 H Glucose 141 H POC Glucose 171 H Lactic Acid Calcium Phosphorus Magnesium Direct Bilirubin AST ALT Alkaline Phosphatase Lactate Dehydrogenase Troponin T C-Reactive Protein Total Protein Albumin Prealbumin Triglycerides Cholesterol LDL Cholesterol Direct HDL Cholesterol PTH Intact Urine pH Urine WBC (Auto) Urine Creatinine Urine Total Protein Fluid Total Protein Vancomycin Trough Rheumatoid Factor Complement C4 Miscellaneous Test Crossmatch 12/13/16 12/13/16 12/14/16 12:28 16:48 00:01 WBC RBC Hgb Hct MCV MCH MCHC RDW Plt Count Lymph % (Auto) [place] % (Auto) Lymph # [place] # Baso # Seg Neutrophils % Seg Neuts % (Manual) Lymphocytes % (Manual) Monocytes % (Manual) Eosinophils % (Manual) Basophils % (Manual) Nucleated RBC % Seg Neutrophils # Seg Neutrophils # Man Lymphocytes # (Manual) Monocytes # (Manual) Eosinophils # (Manual) Basophils # (Manual) PT INR Fibrinogen dRVVT Confirm Interp Factor V Activity POC ABG pH POC ABG pCO2 POC ABG pO2 ABG pO2 ABG HCO3 ABG Base Excess ABG Hemoglobin Oxyhemoglobin Sodium Potassium Chloride Carbon Dioxide BUN Creatinine Glucose POC Glucose 206 H 173 H 139 H Lactic Acid Calcium Phosphorus Magnesium Direct Bilirubin AST ALT Alkaline Phosphatase Lactate Dehydrogenase Troponin T C-Reactive Protein Total Protein Albumin Prealbumin Triglycerides Cholesterol LDL Cholesterol Direct HDL Cholesterol PTH Intact Urine pH Urine WBC (Auto) Urine Creatinine Urine Total Protein Fluid Total Protein Vancomycin Trough Rheumatoid Factor Complement C4 Miscellaneous Test Crossmatch 12/14/16 12/14/16 12/14/16 05:16 06:10 11:17 WBC RBC Hgb Hct MCV MCH MCHC RDW Plt Count Lymph % (Auto) [place] % (Auto) Lymph # [place] # Baso # Seg Neutrophils % Seg Neuts % (Manual) Lymphocytes % (Manual) Monocytes % (Manual) Eosinophils % (Manual) Basophils % (Manual) Nucleated RBC % Seg Neutrophils # Seg Neutrophils # Man Lymphocytes # (Manual) Monocytes # (Manual) Eosinophils # (Manual) Basophils # (Manual) PT INR Fibrinogen dRVVT Confirm Interp Factor V Activity POC ABG pH POC ABG pCO2 POC ABG pO2 ABG pO2 ABG HCO3 ABG Base Excess ABG Hemoglobin Oxyhemoglobin Sodium Potassium Chloride Carbon Dioxide BUN 57 H Creatinine 1.4 H Glucose 135 H POC Glucose 158 H 137 H Lactic Acid Calcium Phosphorus Magnesium Direct Bilirubin AST ALT Alkaline Phosphatase Lactate Dehydrogenase Troponin T C-Reactive Protein Total Protein Albumin Prealbumin Triglycerides Cholesterol LDL Cholesterol Direct HDL Cholesterol PTH Intact Urine pH Urine WBC (Auto) Urine Creatinine Urine Total Protein Fluid Total Protein Vancomycin Trough Rheumatoid Factor Complement C4 Miscellaneous Test Crossmatch 12/14/16 12/14/16 12/15/16 17:52 23:27 04:00 WBC RBC Hgb Hct MCV MCH MCHC RDW Plt Count Lymph % (Auto) [place] % (Auto) Lymph # [place] # Baso # Seg Neutrophils % Seg Neuts % (Manual) Lymphocytes % (Manual) Monocytes % (Manual) Eosinophils % (Manual) Basophils % (Manual) Nucleated RBC % Seg Neutrophils # Seg Neutrophils # Man Lymphocytes # (Manual) Monocytes # (Manual) Eosinophils # (Manual) Basophils # (Manual) PT INR Fibrinogen dRVVT Confirm Interp Factor V Activity POC ABG pH POC ABG pCO2 POC ABG pO2 ABG pO2 ABG HCO3 ABG Base Excess ABG Hemoglobin Oxyhemoglobin Sodium Potassium Chloride 97.9 L Carbon Dioxide BUN 75 H Creatinine 1.6 H Glucose 122 H POC Glucose 149 H 163 H Lactic Acid Calcium Phosphorus 5.20 H Magnesium Direct Bilirubin AST ALT Alkaline Phosphatase Lactate Dehydrogenase Troponin T C-Reactive Protein Total Protein Albumin Prealbumin Triglycerides Cholesterol LDL Cholesterol Direct HDL Cholesterol PTH Intact Urine pH Urine WBC (Auto) Urine Creatinine Urine Total Protein Fluid Total Protein Vancomycin Trough Rheumatoid Factor Complement C4 Miscellaneous Test Crossmatch 12/15/16 12/15/16 12/15/16 05:50 11:24 17:01 WBC RBC Hgb Hct MCV MCH MCHC RDW Plt Count Lymph % (Auto) [place] % (Auto) Lymph # [place] # Baso # Seg Neutrophils % Seg Neuts % (Manual) Lymphocytes % (Manual) Monocytes % (Manual) Eosinophils % (Manual) Basophils % (Manual) Nucleated RBC % Seg Neutrophils # Seg Neutrophils # Man Lymphocytes # (Manual) Monocytes # (Manual) Eosinophils # (Manual) Basophils # (Manual) PT INR Fibrinogen dRVVT Confirm Interp Factor V Activity POC ABG pH POC ABG pCO2 POC ABG pO2 ABG pO2 ABG HCO3 ABG Base Excess ABG Hemoglobin Oxyhemoglobin Sodium Potassium Chloride Carbon Dioxide BUN Creatinine Glucose POC Glucose 150 H 146 H 167 H Lactic Acid Calcium Phosphorus Magnesium Direct Bilirubin AST ALT Alkaline Phosphatase Lactate Dehydrogenase Troponin T C-Reactive Protein Total Protein Albumin Prealbumin Triglycerides Cholesterol LDL Cholesterol Direct HDL Cholesterol PTH Intact Urine pH Urine WBC (Auto) Urine Creatinine Urine Total Protein Fluid Total Protein Vancomycin Trough Rheumatoid Factor Complement C4 Miscellaneous Test Crossmatch 12/15/16 12/16/16 12/16/16 23:34 05:25 11:24 WBC RBC Hgb Hct MCV MCH MCHC RDW Plt Count Lymph % (Auto) [place] % (Auto) Lymph # [place] # Baso # Seg Neutrophils % Seg Neuts % (Manual) Lymphocytes % (Manual) Monocytes % (Manual) Eosinophils % (Manual) Basophils % (Manual) Nucleated RBC % Seg Neutrophils # Seg Neutrophils # Man Lymphocytes # (Manual) Monocytes # (Manual) Eosinophils # (Manual) Basophils # (Manual) PT INR Fibrinogen dRVVT Confirm Interp Factor V Activity POC ABG pH POC ABG pCO2 POC ABG pO2 ABG pO2 ABG HCO3 ABG Base Excess ABG Hemoglobin Oxyhemoglobin Sodium Potassium Chloride Carbon Dioxide BUN Creatinine Glucose POC Glucose 127 H 139 H 165 H Lactic Acid Calcium Phosphorus Magnesium Direct Bilirubin AST ALT Alkaline Phosphatase Lactate Dehydrogenase Troponin T C-Reactive Protein Total Protein Albumin Prealbumin Triglycerides Cholesterol LDL Cholesterol Direct HDL Cholesterol PTH Intact Urine pH Urine WBC (Auto) Urine Creatinine Urine Total Protein Fluid Total Protein Vancomycin Trough Rheumatoid Factor Complement C4 Miscellaneous Test Crossmatch 12/16/16 12/16/16 12/16/16 15:30 16:25 17:31 WBC 17.8 H RBC 2.38 L Hgb 6.4 L Hct 20.3 L MCV MCH 27 L MCHC RDW 17.4 H Plt Count Lymph % (Auto) [place] % (Auto) Lymph # [place] # Baso # Seg Neutrophils % Seg Neuts % (Manual) Lymphocytes % (Manual) Monocytes % (Manual) 10.0 H Eosinophils % (Manual) Basophils % (Manual) Nucleated RBC % Seg Neutrophils # Seg Neutrophils # Man 8.5 H Lymphocytes # (Manual) Monocytes # (Manual) 1.8 H Eosinophils # (Manual) Basophils # (Manual) PT INR Fibrinogen dRVVT Confirm Interp Factor V Activity POC ABG pH POC ABG pCO2 POC ABG pO2 ABG pO2 ABG HCO3 ABG Base Excess ABG Hemoglobin Oxyhemoglobin Sodium Potassium Chloride Carbon Dioxide BUN Creatinine Glucose POC Glucose 176 H Lactic Acid Calcium Phosphorus Magnesium Direct Bilirubin AST ALT Alkaline Phosphatase Lactate Dehydrogenase Troponin T C-Reactive Protein Total Protein Albumin Prealbumin Triglycerides Cholesterol LDL Cholesterol Direct HDL Cholesterol PTH Intact Urine pH Urine WBC (Auto) Urine Creatinine Urine Total Protein Fluid Total Protein Vancomycin Trough Rheumatoid Factor Complement C4 Miscellaneous Test Crossmatch See Detail 12/17/16 12/17/16 12/17/16 00:14 04:00 05:00 WBC 20.0 H RBC 2.99 L Hgb 8.5 L Hct 25.7 L MCV MCH MCHC RDW 17.2 H Plt Count Lymph % (Auto) [place] % (Auto) Lymph # [place] # Baso # Seg Neutrophils % Seg Neuts % (Manual) Lymphocytes % (Manual) Monocytes % (Manual) Eosinophils % (Manual) Basophils % (Manual) Nucleated RBC % Seg Neutrophils # Seg Neutrophils # Man Lymphocytes # (Manual) Monocytes # (Manual) Eosinophils # (Manual) Basophils # (Manual) PT INR Fibrinogen dRVVT Confirm Interp Factor V Activity POC ABG pH POC ABG pCO2 POC ABG pO2 ABG pO2 ABG HCO3 ABG Base Excess ABG Hemoglobin Oxyhemoglobin Sodium Potassium Chloride 97.7 L Carbon Dioxide BUN 73 H Creatinine 1.7 H Glucose 136 H POC Glucose 148 H Lactic Acid Calcium Phosphorus 2.20 L Magnesium 2.70 H Direct Bilirubin AST ALT Alkaline Phosphatase Lactate Dehydrogenase Troponin T C-Reactive Protein Total Protein Albumin Prealbumin Triglycerides Cholesterol LDL Cholesterol Direct HDL Cholesterol PTH Intact Urine pH Urine WBC (Auto) Urine Creatinine Urine Total Protein Fluid Total Protein Vancomycin Trough Rheumatoid Factor Complement C4 Miscellaneous Test Crossmatch 12/17/16 12/17/16 12/17/16 05:39 12:50 16:32 WBC RBC Hgb Hct MCV MCH MCHC RDW Plt Count Lymph % (Auto) [place] % (Auto) Lymph # [place] # Baso # Seg Neutrophils % Seg Neuts % (Manual) Lymphocytes % (Manual) Monocytes % (Manual) Eosinophils % (Manual) Basophils % (Manual) Nucleated RBC % Seg Neutrophils # Seg Neutrophils # Man Lymphocytes # (Manual) Monocytes # (Manual) Eosinophils # (Manual) Basophils # (Manual) PT INR Fibrinogen dRVVT Confirm Interp Factor V Activity POC ABG pH POC ABG pCO2 POC ABG pO2 ABG pO2 ABG HCO3 ABG Base Excess ABG Hemoglobin Oxyhemoglobin Sodium Potassium Chloride Carbon Dioxide BUN Creatinine Glucose POC Glucose 162 H 146 H 169 H Lactic Acid Calcium Phosphorus Magnesium Direct Bilirubin AST ALT Alkaline Phosphatase Lactate Dehydrogenase Troponin T C-Reactive Protein Total Protein Albumin Prealbumin Triglycerides Cholesterol LDL Cholesterol Direct HDL Cholesterol PTH Intact Urine pH Urine WBC (Auto) Urine Creatinine Urine Total Protein Fluid Total Protein Vancomycin Trough Rheumatoid Factor Complement C4 Miscellaneous Test Crossmatch 12/17/16 12/18/16 12/18/16 23:57 05:00 05:32 WBC RBC Hgb Hct MCV MCH MCHC RDW Plt Count Lymph % (Auto) [place] % (Auto) Lymph # [place] # Baso # Seg Neutrophils % Seg Neuts % (Manual) Lymphocytes % (Manual) Monocytes % (Manual) Eosinophils % (Manual) Basophils % (Manual) Nucleated RBC % Seg Neutrophils # Seg Neutrophils # Man Lymphocytes # (Manual) Monocytes # (Manual) Eosinophils # (Manual) Basophils # (Manual) PT INR Fibrinogen dRVVT Confirm Interp Factor V Activity POC ABG pH POC ABG pCO2 POC ABG pO2 ABG pO2 ABG HCO3 ABG Base Excess ABG Hemoglobin Oxyhemoglobin Sodium Potassium Chloride 97.0 L Carbon Dioxide BUN 63 H Creatinine 1.4 H Glucose 174 H POC Glucose 145 H 201 H Lactic Acid Calcium Phosphorus 1.70 L D Magnesium Direct Bilirubin AST ALT Alkaline Phosphatase 257 H Lactate Dehydrogenase Troponin T C-Reactive Protein Total Protein 5.9 L Albumin 1.8 L Prealbumin Triglycerides Cholesterol LDL Cholesterol Direct HDL Cholesterol PTH Intact Urine pH Urine WBC (Auto) Urine Creatinine Urine Total Protein Fluid Total Protein Vancomycin Trough Rheumatoid Factor Complement C4 Miscellaneous Test Crossmatch 12/18/16 12/18/16 12/18/16 11:43 16:52 23:52 WBC RBC Hgb Hct MCV MCH MCHC RDW Plt Count Lymph % (Auto) [place] % (Auto) Lymph # [place] # Baso # Seg Neutrophils % Seg Neuts % (Manual) Lymphocytes % (Manual) Monocytes % (Manual) Eosinophils % (Manual) Basophils % (Manual) Nucleated RBC % Seg Neutrophils # Seg Neutrophils # Man Lymphocytes # (Manual) Monocytes # (Manual) Eosinophils # (Manual) Basophils # (Manual) PT INR Fibrinogen dRVVT Confirm Interp Factor V Activity POC ABG pH POC ABG pCO2 POC ABG pO2 ABG pO2 ABG HCO3 ABG Base Excess ABG Hemoglobin Oxyhemoglobin Sodium Potassium Chloride Carbon Dioxide BUN Creatinine Glucose POC Glucose 177 H 110 H 162 H Lactic Acid Calcium Phosphorus Magnesium Direct Bilirubin AST ALT Alkaline Phosphatase Lactate Dehydrogenase Troponin T C-Reactive Protein Total Protein Albumin Prealbumin Triglycerides Cholesterol LDL Cholesterol Direct HDL Cholesterol PTH Intact Urine pH Urine WBC (Auto) Urine Creatinine Urine Total Protein Fluid Total Protein Vancomycin Trough Rheumatoid Factor Complement C4 Miscellaneous Test Crossmatch 12/19/16 12/19/16 12/19/16 05:02 05:24 09:30 WBC 20.1 H RBC 2.73 L Hgb 7.6 L Hct 23.6 L MCV MCH MCHC RDW 17.6 H Plt Count Lymph % (Auto) [place] % (Auto) Lymph # [place] # Baso # Seg Neutrophils % Seg Neuts % (Manual) Lymphocytes % (Manual) 13.0 L Monocytes % (Manual) Eosinophils % (Manual) Basophils % (Manual) Nucleated RBC % 1.0 H Seg Neutrophils # Seg Neutrophils # Man 12.9 H Lymphocytes # (Manual) Monocytes # (Manual) 1.4 H Eosinophils # (Manual) Basophils # (Manual) 0.2 H PT INR Fibrinogen dRVVT Confirm Interp Factor V Activity POC ABG pH POC ABG pCO2 POC ABG pO2 ABG pO2 ABG HCO3 ABG Base Excess ABG Hemoglobin Oxyhemoglobin Sodium Potassium Chloride 97.8 L Carbon Dioxide BUN 84 H Creatinine 1.6 H Glucose 133 H POC Glucose 134 H Lactic Acid Calcium Phosphorus Magnesium Direct Bilirubin AST ALT Alkaline Phosphatase Lactate Dehydrogenase Troponin T C-Reactive Protein Total Protein Albumin Prealbumin Triglycerides Cholesterol LDL Cholesterol Direct HDL Cholesterol PTH Intact Urine pH Urine WBC (Auto) Urine Creatinine Urine Total Protein Fluid Total Protein Vancomycin Trough Rheumatoid Factor Complement C4 Miscellaneous Test Crossmatch 12/19/16 12/19/16 12/19/16 09:36 11:12 18:29 WBC RBC Hgb Hct MCV MCH MCHC RDW Plt Count Lymph % (Auto) [place] % (Auto) Lymph # [place] # Baso # Seg Neutrophils % Seg Neuts % (Manual) Lymphocytes % (Manual) Monocytes % (Manual) Eosinophils % (Manual) Basophils % (Manual) Nucleated RBC % Seg Neutrophils # Seg Neutrophils # Man Lymphocytes # (Manual) Monocytes # (Manual) Eosinophils # (Manual) Basophils # (Manual) PT INR Fibrinogen dRVVT Confirm Interp Factor V Activity POC ABG pH 7.503 H POC ABG pCO2 30.1 L POC ABG pO2 ABG pO2 ABG HCO3 ABG Base Excess ABG Hemoglobin Oxyhemoglobin Sodium Potassium Chloride Carbon Dioxide BUN Creatinine Glucose POC Glucose 138 H 156 H Lactic Acid Calcium Phosphorus Magnesium Direct Bilirubin AST ALT Alkaline Phosphatase Lactate Dehydrogenase Troponin T C-Reactive Protein Total Protein Albumin Prealbumin Triglycerides Cholesterol LDL Cholesterol Direct HDL Cholesterol PTH Intact Urine pH Urine WBC (Auto) Urine Creatinine Urine Total Protein Fluid Total Protein Vancomycin Trough Rheumatoid Factor Complement C4 Miscellaneous Test Crossmatch 12/20/16 12/20/16 12/20/16 00:03 06:17 07:07 WBC RBC Hgb Hct MCV MCH MCHC RDW Plt Count Lymph % (Auto) [place] % (Auto) Lymph # [place] # Baso # Seg Neutrophils % Seg Neuts % (Manual) Lymphocytes % (Manual) Monocytes % (Manual) Eosinophils % (Manual) Basophils % (Manual) Nucleated RBC % Seg Neutrophils # Seg Neutrophils # Man Lymphocytes # (Manual) Monocytes # (Manual) Eosinophils # (Manual) Basophils # (Manual) PT INR Fibrinogen dRVVT Confirm Interp Factor V Activity POC ABG pH POC ABG pCO2 POC ABG pO2 ABG pO2 ABG HCO3 ABG Base Excess ABG Hemoglobin Oxyhemoglobin Sodium Potassium Chloride 97.1 L Carbon Dioxide 20 L BUN 97 H Creatinine 1.8 H Glucose 153 H POC Glucose 152 H 175 H Lactic Acid Calcium Phosphorus Magnesium Direct Bilirubin AST ALT Alkaline Phosphatase Lactate Dehydrogenase Troponin T C-Reactive Protein Total Protein Albumin Prealbumin Triglycerides Cholesterol LDL Cholesterol Direct HDL Cholesterol PTH Intact Urine pH Urine WBC (Auto) Urine Creatinine Urine Total Protein Fluid Total Protein Vancomycin Trough Rheumatoid Factor Complement C4 Miscellaneous Test Crossmatch 12/20/16 12/20/16 12/20/16 12:00 17:42 23:53 WBC RBC Hgb Hct MCV MCH MCHC RDW Plt Count Lymph % (Auto) [place] % (Auto) Lymph # [place] # Baso # Seg Neutrophils % Seg Neuts % (Manual) Lymphocytes % (Manual) Monocytes % (Manual) Eosinophils % (Manual) Basophils % (Manual) Nucleated RBC % Seg Neutrophils # Seg Neutrophils # Man Lymphocytes # (Manual) Monocytes # (Manual) Eosinophils # (Manual) Basophils # (Manual) PT INR Fibrinogen dRVVT Confirm Interp Factor V Activity POC ABG pH POC ABG pCO2 POC ABG pO2 ABG pO2 ABG HCO3 ABG Base Excess ABG Hemoglobin Oxyhemoglobin Sodium Potassium Chloride Carbon Dioxide BUN Creatinine Glucose POC Glucose 141 H 156 H 132 H Lactic Acid Calcium Phosphorus Magnesium Direct Bilirubin AST ALT Alkaline Phosphatase Lactate Dehydrogenase Troponin T C-Reactive Protein Total Protein Albumin Prealbumin Triglycerides Cholesterol LDL Cholesterol Direct HDL Cholesterol PTH Intact Urine pH Urine WBC (Auto) Urine Creatinine Urine Total Protein Fluid Total Protein Vancomycin Trough Rheumatoid Factor Complement C4 Miscellaneous Test Crossmatch 12/21/16 12/21/16 12/21/16 05:49 08:50 12:19 WBC RBC Hgb Hct MCV MCH MCHC RDW Plt Count Lymph % (Auto) [place] % (Auto) Lymph # [place] # Baso # Seg Neutrophils % Seg Neuts % (Manual) Lymphocytes % (Manual) Monocytes % (Manual) Eosinophils % (Manual) Basophils % (Manual) Nucleated RBC % Seg Neutrophils # Seg Neutrophils # Man Lymphocytes # (Manual) Monocytes # (Manual) Eosinophils # (Manual) Basophils # (Manual) PT INR Fibrinogen dRVVT Confirm Interp Factor V Activity POC ABG pH POC ABG pCO2 POC ABG pO2 ABG pO2 ABG HCO3 ABG Base Excess ABG Hemoglobin Oxyhemoglobin Sodium Potassium 5.2 H D Chloride Carbon Dioxide BUN 63 H Creatinine Glucose 122 H POC Glucose 132 H 136 H Lactic Acid Calcium 8.3 L Phosphorus Magnesium Direct Bilirubin AST ALT Alkaline Phosphatase Lactate Dehydrogenase Troponin T C-Reactive Protein Total Protein Albumin Prealbumin Triglycerides Cholesterol LDL Cholesterol Direct HDL Cholesterol PTH Intact Urine pH Urine WBC (Auto) Urine Creatinine Urine Total Protein Fluid Total Protein Vancomycin Trough Rheumatoid Factor Complement C4 Miscellaneous Test Crossmatch 12/21/16 12/21/16 12/22/16 17:22 23:58 05:49 WBC RBC Hgb Hct MCV MCH MCHC RDW Plt Count Lymph % (Auto) [place] % (Auto) Lymph # [place] # Baso # Seg Neutrophils % Seg Neuts % (Manual) Lymphocytes % (Manual) Monocytes % (Manual) Eosinophils % (Manual) Basophils % (Manual) Nucleated RBC % Seg Neutrophils # Seg Neutrophils # Man Lymphocytes # (Manual) Monocytes # (Manual) Eosinophils # (Manual) Basophils # (Manual) PT INR Fibrinogen dRVVT Confirm Interp Factor V Activity POC ABG pH POC ABG pCO2 POC ABG pO2 ABG pO2 ABG HCO3 ABG Base Excess ABG Hemoglobin Oxyhemoglobin Sodium Potassium Chloride Carbon Dioxide BUN Creatinine Glucose POC Glucose 135 H 149 H 140 H Lactic Acid Calcium Phosphorus Magnesium Direct Bilirubin AST ALT Alkaline Phosphatase Lactate Dehydrogenase Troponin T C-Reactive Protein Total Protein Albumin Prealbumin Triglycerides Cholesterol LDL Cholesterol Direct HDL Cholesterol PTH Intact Urine pH Urine WBC (Auto) Urine Creatinine Urine Total Protein Fluid Total Protein Vancomycin Trough Rheumatoid Factor Complement C4 Miscellaneous Test Crossmatch 12/22/16 12/22/16 12/22/16 06:10 11:17 17:31 WBC RBC Hgb Hct MCV MCH MCHC RDW Plt Count Lymph % (Auto) [place] % (Auto) Lymph # [place] # Baso # Seg Neutrophils % Seg Neuts % (Manual) Lymphocytes % (Manual) Monocytes % (Manual) Eosinophils % (Manual) Basophils % (Manual) Nucleated RBC % Seg Neutrophils # Seg Neutrophils # Man Lymphocytes # (Manual) Monocytes # (Manual) Eosinophils # (Manual) Basophils # (Manual) PT INR Fibrinogen dRVVT Confirm Interp Factor V Activity POC ABG pH POC ABG pCO2 POC ABG pO2 ABG pO2 ABG HCO3 ABG Base Excess ABG Hemoglobin Oxyhemoglobin Sodium Potassium Chloride Carbon Dioxide BUN 76 H Creatinine 1.5 H Glucose 241 H POC Glucose 193 H 148 H Lactic Acid Calcium Phosphorus Magnesium Direct Bilirubin AST ALT Alkaline Phosphatase Lactate Dehydrogenase Troponin T C-Reactive Protein Total Protein Albumin Prealbumin Triglycerides Cholesterol LDL Cholesterol Direct HDL Cholesterol PTH Intact Urine pH Urine WBC (Auto) Urine Creatinine Urine Total Protein Fluid Total Protein Vancomycin Trough Rheumatoid Factor Complement C4 Miscellaneous Test Crossmatch 12/22/16 12/23/16 12/23/16 23:58 05:00 05:26 WBC RBC Hgb Hct MCV MCH MCHC RDW Plt Count Lymph % (Auto) [place] % (Auto) Lymph # [place] # Baso # Seg Neutrophils % Seg Neuts % (Manual) Lymphocytes % (Manual) Monocytes % (Manual) Eosinophils % (Manual) Basophils % (Manual) Nucleated RBC % Seg Neutrophils # Seg Neutrophils # Man Lymphocytes # (Manual) Monocytes # (Manual) Eosinophils # (Manual) Basophils # (Manual) PT INR Fibrinogen dRVVT Confirm Interp Factor V Activity POC ABG pH POC ABG pCO2 POC ABG pO2 ABG pO2 ABG HCO3 ABG Base Excess ABG Hemoglobin Oxyhemoglobin Sodium Potassium Chloride Carbon Dioxide BUN 49 H Creatinine Glucose 143 H POC Glucose 165 H 154 H Lactic Acid Calcium 8.2 L Phosphorus Magnesium 1.60 L Direct Bilirubin AST ALT Alkaline Phosphatase Lactate Dehydrogenase Troponin T C-Reactive Protein Total Protein Albumin Prealbumin Triglycerides Cholesterol LDL Cholesterol Direct HDL Cholesterol PTH Intact Urine pH Urine WBC (Auto) Urine Creatinine Urine Total Protein Fluid Total Protein Vancomycin Trough Rheumatoid Factor Complement C4 Miscellaneous Test Crossmatch 12/23/16 12/23/16 12/24/16 12:35 17:01 00:01 WBC RBC Hgb Hct MCV MCH MCHC RDW Plt Count Lymph % (Auto) [place] % (Auto) Lymph # [place] # Baso # Seg Neutrophils % Seg Neuts % (Manual) Lymphocytes % (Manual) Monocytes % (Manual) Eosinophils % (Manual) Basophils % (Manual) Nucleated RBC % Seg Neutrophils # Seg Neutrophils # Man Lymphocytes # (Manual) Monocytes # (Manual) Eosinophils # (Manual) Basophils # (Manual) PT INR Fibrinogen dRVVT Confirm Interp Factor V Activity POC ABG pH POC ABG pCO2 POC ABG pO2 ABG pO2 ABG HCO3 ABG Base Excess ABG Hemoglobin Oxyhemoglobin Sodium Potassium Chloride Carbon Dioxide BUN Creatinine Glucose POC Glucose 164 H 149 H 135 H Lactic Acid Calcium Phosphorus Magnesium Direct Bilirubin AST ALT Alkaline Phosphatase Lactate Dehydrogenase Troponin T C-Reactive Protein Total Protein Albumin Prealbumin Triglycerides Cholesterol LDL Cholesterol Direct HDL Cholesterol PTH Intact Urine pH Urine WBC (Auto) Urine Creatinine Urine Total Protein Fluid Total Protein Vancomycin Trough Rheumatoid Factor Complement C4 Miscellaneous Test Crossmatch 12/24/16 12/24/16 12/24/16 05:41 07:01 11:38 WBC RBC Hgb Hct MCV MCH MCHC RDW Plt Count Lymph % (Auto) [place] % (Auto) Lymph # [place] # Baso # Seg Neutrophils % Seg Neuts % (Manual) Lymphocytes % (Manual) Monocytes % (Manual) Eosinophils % (Manual) Basophils % (Manual) Nucleated RBC % Seg Neutrophils # Seg Neutrophils # Man Lymphocytes # (Manual) Monocytes # (Manual) Eosinophils # (Manual) Basophils # (Manual) PT INR Fibrinogen dRVVT Confirm Interp Factor V Activity POC ABG pH POC ABG pCO2 POC ABG pO2 ABG pO2 ABG HCO3 ABG Base Excess ABG Hemoglobin Oxyhemoglobin Sodium Potassium Chloride Carbon Dioxide BUN 72 H Creatinine 1.3 H Glucose 130 H POC Glucose 132 H 156 H Lactic Acid Calcium 8.2 L Phosphorus Magnesium Direct Bilirubin AST ALT Alkaline Phosphatase Lactate Dehydrogenase Troponin T C-Reactive Protein Total Protein Albumin Prealbumin Triglycerides Cholesterol LDL Cholesterol Direct HDL Cholesterol PTH Intact Urine pH Urine WBC (Auto) Urine Creatinine Urine Total Protein Fluid Total Protein Vancomycin Trough Rheumatoid Factor Complement C4 Miscellaneous Test Crossmatch 12/24/16 12/25/16 12/25/16 17:53 00:23 05:45 WBC RBC Hgb Hct MCV MCH MCHC RDW Plt Count Lymph % (Auto) [place] % (Auto) Lymph # [place] # Baso # Seg Neutrophils % Seg Neuts % (Manual) Lymphocytes % (Manual) Monocytes % (Manual) Eosinophils % (Manual) Basophils % (Manual) Nucleated RBC % Seg Neutrophils # Seg Neutrophils # Man Lymphocytes # (Manual) Monocytes # (Manual) Eosinophils # (Manual) Basophils # (Manual) PT INR Fibrinogen dRVVT Confirm Interp Factor V Activity POC ABG pH POC ABG pCO2 POC ABG pO2 ABG pO2 ABG HCO3 ABG Base Excess ABG Hemoglobin Oxyhemoglobin Sodium 146 H Potassium Chloride Carbon Dioxide BUN 51 H Creatinine Glucose 109 H POC Glucose 169 H 117 H Lactic Acid Calcium Phosphorus Magnesium Direct Bilirubin AST ALT Alkaline Phosphatase Lactate Dehydrogenase Troponin T C-Reactive Protein Total Protein Albumin Prealbumin Triglycerides Cholesterol LDL Cholesterol Direct HDL Cholesterol PTH Intact Urine pH Urine WBC (Auto) Urine Creatinine Urine Total Protein Fluid Total Protein Vancomycin Trough Rheumatoid Factor Complement C4 Miscellaneous Test Crossmatch 12/25/16 12/25/16 12/25/16 06:43 11:29 17:14 WBC RBC Hgb Hct MCV MCH MCHC RDW Plt Count Lymph % (Auto) [place] % (Auto) Lymph # [place] # Baso # Seg Neutrophils % Seg Neuts % (Manual) Lymphocytes % (Manual) Monocytes % (Manual) Eosinophils % (Manual) Basophils % (Manual) Nucleated RBC % Seg Neutrophils # Seg Neutrophils # Man Lymphocytes # (Manual) Monocytes # (Manual) Eosinophils # (Manual) Basophils # (Manual) PT INR Fibrinogen dRVVT Confirm Interp Factor V Activity POC ABG pH POC ABG pCO2 POC ABG pO2 ABG pO2 ABG HCO3 ABG Base Excess ABG Hemoglobin Oxyhemoglobin Sodium Potassium Chloride Carbon Dioxide BUN Creatinine Glucose POC Glucose 117 H 128 H 120 H Lactic Acid Calcium Phosphorus Magnesium Direct Bilirubin AST ALT Alkaline Phosphatase Lactate Dehydrogenase Troponin T C-Reactive Protein Total Protein Albumin Prealbumin Triglycerides Cholesterol LDL Cholesterol Direct HDL Cholesterol PTH Intact Urine pH Urine WBC (Auto) Urine Creatinine Urine Total Protein Fluid Total Protein Vancomycin Trough Rheumatoid Factor Complement C4 Miscellaneous Test Crossmatch 12/25/16 12/26/16 12/26/16 23:54 05:40 05:50 WBC 16.2 H RBC 2.32 L Hgb 6.2 L Hct 20.1 L MCV MCH 27 L MCHC RDW 18.6 H Plt Count Lymph % (Auto) [place] % (Auto) Lymph # [place] # Baso # Seg Neutrophils % Seg Neuts % (Manual) Lymphocytes % (Manual) Monocytes % (Manual) Eosinophils % (Manual) Basophils % (Manual) Nucleated RBC % Seg Neutrophils # Seg Neutrophils # Man Lymphocytes # (Manual) Monocytes # (Manual) Eosinophils # (Manual) Basophils # (Manual) PT INR Fibrinogen dRVVT Confirm Interp Factor V Activity POC ABG pH POC ABG pCO2 POC ABG pO2 ABG pO2 ABG HCO3 ABG Base Excess ABG Hemoglobin Oxyhemoglobin Sodium Potassium Chloride Carbon Dioxide BUN Creatinine Glucose POC Glucose 126 H 132 H Lactic Acid Calcium Phosphorus Magnesium Direct Bilirubin AST ALT Alkaline Phosphatase Lactate Dehydrogenase Troponin T C-Reactive Protein Total Protein Albumin Prealbumin Triglycerides Cholesterol LDL Cholesterol Direct HDL Cholesterol PTH Intact Urine pH Urine WBC (Auto) Urine Creatinine Urine Total Protein Fluid Total Protein Vancomycin Trough Rheumatoid Factor Complement C4 Miscellaneous Test Crossmatch 12/26/16 12/26/16 12/26/16 05:50 12:17 12:33 WBC RBC Hgb Hct MCV MCH MCHC RDW Plt Count Lymph % (Auto) [place] % (Auto) Lymph # [place] # Baso # Seg Neutrophils % Seg Neuts % (Manual) Lymphocytes % (Manual) Monocytes % (Manual) Eosinophils % (Manual) Basophils % (Manual) Nucleated RBC % Seg Neutrophils # Seg Neutrophils # Man Lymphocytes # (Manual) Monocytes # (Manual) Eosinophils # (Manual) Basophils # (Manual) PT INR Fibrinogen dRVVT Confirm Interp Factor V Activity POC ABG pH POC ABG pCO2 POC ABG pO2 ABG pO2 ABG HCO3 ABG Base Excess ABG Hemoglobin Oxyhemoglobin Sodium Potassium Chloride Carbon Dioxide BUN 73 H Creatinine 1.3 H Glucose 113 H POC Glucose 117 H Lactic Acid Calcium Phosphorus Magnesium Direct Bilirubin AST ALT Alkaline Phosphatase Lactate Dehydrogenase Troponin T C-Reactive Protein Total Protein Albumin Prealbumin Triglycerides Cholesterol LDL Cholesterol Direct HDL Cholesterol PTH Intact Urine pH Urine WBC (Auto) Urine Creatinine Urine Total Protein Fluid Total Protein Vancomycin Trough Rheumatoid Factor Complement C4 Miscellaneous Test Crossmatch See Detail 12/26/16 12/26/16 12/27/16 20:00 23:21 05:00 WBC RBC Hgb 8.4 L Hct 26.3 L D MCV MCH MCHC RDW Plt Count Lymph % (Auto) [place] % (Auto) Lymph # [place] # Baso # Seg Neutrophils % Seg Neuts % (Manual) Lymphocytes % (Manual) Monocytes % (Manual) Eosinophils % (Manual) Basophils % (Manual) Nucleated RBC % Seg Neutrophils # Seg Neutrophils # Man Lymphocytes # (Manual) Monocytes # (Manual) Eosinophils # (Manual) Basophils # (Manual) PT INR Fibrinogen dRVVT Confirm Interp Factor V Activity POC ABG pH POC ABG pCO2 POC ABG pO2 ABG pO2 ABG HCO3 ABG Base Excess ABG Hemoglobin Oxyhemoglobin Sodium Potassium Chloride Carbon Dioxide BUN 85 H Creatinine 1.6 H Glucose 118 H POC Glucose 124 H Lactic Acid Calcium Phosphorus 4.80 H Magnesium Direct Bilirubin AST ALT Alkaline Phosphatase Lactate Dehydrogenase Troponin T C-Reactive Protein Total Protein Albumin Prealbumin Triglycerides Cholesterol LDL Cholesterol Direct HDL Cholesterol PTH Intact Urine pH Urine WBC (Auto) Urine Creatinine Urine Total Protein Fluid Total Protein Vancomycin Trough Rheumatoid Factor Complement C4 Miscellaneous Test Crossmatch 12/27/16 12/27/16 12/27/16 05:00 05:35 12:24 WBC RBC Hgb 7.6 L Hct 22.8 L MCV MCH MCHC RDW Plt Count Lymph % (Auto) [place] % (Auto) Lymph # [place] # Baso # Seg Neutrophils % Seg Neuts % (Manual) Lymphocytes % (Manual) Monocytes % (Manual) Eosinophils % (Manual) Basophils % (Manual) Nucleated RBC % Seg Neutrophils # Seg Neutrophils # Man Lymphocytes # (Manual) Monocytes # (Manual) Eosinophils # (Manual) Basophils # (Manual) PT INR Fibrinogen dRVVT Confirm Interp Factor V Activity POC ABG pH POC ABG pCO2 POC ABG pO2 ABG pO2 ABG HCO3 ABG Base Excess ABG Hemoglobin Oxyhemoglobin Sodium Potassium Chloride Carbon Dioxide BUN Creatinine Glucose POC Glucose 115 H 131 H Lactic Acid Calcium Phosphorus Magnesium Direct Bilirubin AST ALT Alkaline Phosphatase Lactate Dehydrogenase Troponin T C-Reactive Protein Total Protein Albumin Prealbumin Triglycerides Cholesterol LDL Cholesterol Direct HDL Cholesterol PTH Intact Urine pH Urine WBC (Auto) Urine Creatinine Urine Total Protein Fluid Total Protein Vancomycin Trough Rheumatoid Factor Complement C4 Miscellaneous Test Crossmatch 12/27/16 12/28/16 12/28/16 17:16 00:18 04:00 WBC RBC Hgb Hct MCV MCH MCHC RDW Plt Count Lymph % (Auto) [place] % (Auto) Lymph # [place] # Baso # Seg Neutrophils % Seg Neuts % (Manual) Lymphocytes % (Manual) Monocytes % (Manual) Eosinophils % (Manual) Basophils % (Manual) Nucleated RBC % Seg Neutrophils # Seg Neutrophils # Man Lymphocytes # (Manual) Monocytes # (Manual) Eosinophils # (Manual) Basophils # (Manual) PT INR Fibrinogen dRVVT Confirm Interp Factor V Activity POC ABG pH POC ABG pCO2 POC ABG pO2 ABG pO2 ABG HCO3 ABG Base Excess ABG Hemoglobin Oxyhemoglobin Sodium Potassium 3.5 L Chloride Carbon Dioxide BUN 57 H Creatinine Glucose 118 H POC Glucose 136 H 120 H Lactic Acid Calcium 8.3 L Phosphorus Magnesium Direct Bilirubin AST ALT Alkaline Phosphatase Lactate Dehydrogenase Troponin T C-Reactive Protein Total Protein Albumin Prealbumin Triglycerides Cholesterol LDL Cholesterol Direct HDL Cholesterol PTH Intact Urine pH Urine WBC (Auto) Urine Creatinine Urine Total Protein Fluid Total Protein Vancomycin Trough Rheumatoid Factor Complement C4 Miscellaneous Test Crossmatch 12/28/16 12/28/16 12/28/16 04:00 05:11 08:30 WBC 17.0 H RBC 2.58 L Hgb 7.1 L Hct 22.0 L MCV MCH MCHC RDW 17.6 H Plt Count Lymph % (Auto) 12.2 L [place] % (Auto) Lymph # [place] # 1.1 H Baso # Seg Neutrophils % 80.5 H Seg Neuts % (Manual) Lymphocytes % (Manual) Monocytes % (Manual) Eosinophils % (Manual) Basophils % (Manual) Nucleated RBC % Seg Neutrophils # 13.7 H Seg Neutrophils # Man Lymphocytes # (Manual) Monocytes # (Manual) Eosinophils # (Manual) Basophils # (Manual) PT 16.1 H INR 1.23 H Fibrinogen dRVVT Confirm Interp Factor V Activity POC ABG pH POC ABG pCO2 POC ABG pO2 ABG pO2 ABG HCO3 ABG Base Excess ABG Hemoglobin Oxyhemoglobin Sodium Potassium Chloride Carbon Dioxide BUN Creatinine Glucose POC Glucose 122 H Lactic Acid Calcium Phosphorus Magnesium Direct Bilirubin AST ALT Alkaline Phosphatase Lactate Dehydrogenase Troponin T C-Reactive Protein Total Protein Albumin Prealbumin Triglycerides Cholesterol LDL Cholesterol Direct HDL Cholesterol PTH Intact Urine pH Urine WBC (Auto) Urine Creatinine Urine Total Protein Fluid Total Protein Vancomycin Trough Rheumatoid Factor Complement C4 Miscellaneous Test Crossmatch 12/28/16 12/28/16 12/28/16 12:27 16:32 23:46 WBC RBC Hgb Hct MCV MCH MCHC RDW Plt Count Lymph % (Auto) [place] % (Auto) Lymph # [place] # Baso # Seg Neutrophils % Seg Neuts % (Manual) Lymphocytes % (Manual) Monocytes % (Manual) Eosinophils % (Manual) Basophils % (Manual) Nucleated RBC % Seg Neutrophils # Seg Neutrophils # Man Lymphocytes # (Manual) Monocytes # (Manual) Eosinophils # (Manual) Basophils # (Manual) PT INR Fibrinogen dRVVT Confirm Interp Factor V Activity POC ABG pH POC ABG pCO2 POC ABG pO2 ABG pO2 ABG HCO3 ABG Base Excess ABG Hemoglobin Oxyhemoglobin Sodium Potassium Chloride Carbon Dioxide BUN Creatinine Glucose POC Glucose 127 H 117 H 108 H Lactic Acid Calcium Phosphorus Magnesium Direct Bilirubin AST ALT Alkaline Phosphatase Lactate Dehydrogenase Troponin T C-Reactive Protein Total Protein Albumin Prealbumin Triglycerides Cholesterol LDL Cholesterol Direct HDL Cholesterol PTH Intact Urine pH Urine WBC (Auto) Urine Creatinine Urine Total Protein Fluid Total Protein Vancomycin Trough Rheumatoid Factor Complement C4 Miscellaneous Test Crossmatch 12/29/16 12/29/16 12/29/16 05:15 05:15 05:32 WBC RBC Hgb Hct MCV MCH MCHC RDW Plt Count Lymph % (Auto) [place] % (Auto) Lymph # [place] # Baso # Seg Neutrophils % Seg Neuts % (Manual) Lymphocytes % (Manual) Monocytes % (Manual) Eosinophils % (Manual) Basophils % (Manual) Nucleated RBC % Seg Neutrophils # Seg Neutrophils # Man Lymphocytes # (Manual) Monocytes # (Manual) Eosinophils # (Manual) Basophils # (Manual) PT INR Fibrinogen dRVVT Confirm Interp Factor V Activity POC ABG pH POC ABG pCO2 POC ABG pO2 ABG pO2 ABG HCO3 ABG Base Excess ABG Hemoglobin Oxyhemoglobin Sodium Potassium Chloride Carbon Dioxide BUN 74 H Creatinine 1.6 H Glucose 111 H POC Glucose 123 H Lactic Acid Calcium Phosphorus Magnesium Direct Bilirubin AST ALT Alkaline Phosphatase Lactate Dehydrogenase Troponin T C-Reactive Protein Total Protein Albumin Prealbumin 0.110 L Triglycerides Cholesterol LDL Cholesterol Direct HDL Cholesterol PTH Intact Urine pH Urine WBC (Auto) Urine Creatinine Urine Total Protein Fluid Total Protein Vancomycin Trough Rheumatoid Factor Complement C4 Miscellaneous Test Crossmatch 12/29/16 12/29/16 12/29/16 11:43 13:45 14:00 WBC 13.8 H RBC 2.26 L Hgb 6.3 L Hct 20.4 L MCV MCH MCHC RDW 18.3 H Plt Count Lymph % (Auto) [place] % (Auto) Lymph # [place] # 0.9 H Baso # Seg Neutrophils % 78.6 H Seg Neuts % (Manual) Lymphocytes % (Manual) Monocytes % (Manual) Eosinophils % (Manual) Basophils % (Manual) Nucleated RBC % Seg Neutrophils # 10.8 H Seg Neutrophils # Man Lymphocytes # (Manual) Monocytes # (Manual) Eosinophils # (Manual) Basophils # (Manual) PT INR Fibrinogen dRVVT Confirm Interp Factor V Activity POC ABG pH POC ABG pCO2 POC ABG pO2 ABG pO2 ABG HCO3 ABG Base Excess ABG Hemoglobin Oxyhemoglobin Sodium Potassium Chloride Carbon Dioxide BUN Creatinine Glucose POC Glucose 133 H Lactic Acid Calcium Phosphorus Magnesium Direct Bilirubin AST ALT Alkaline Phosphatase Lactate Dehydrogenase Troponin T C-Reactive Protein Total Protein Albumin Prealbumin Triglycerides Cholesterol LDL Cholesterol Direct HDL Cholesterol PTH Intact Urine pH Urine WBC (Auto) Urine Creatinine Urine Total Protein Fluid Total Protein Vancomycin Trough Rheumatoid Factor Complement C4 Miscellaneous Test Crossmatch See Detail 12/29/16 12/29/16 12/29/16 17:03 23:15 23:22 WBC RBC Hgb 7.3 L Hct 22.3 L MCV MCH MCHC RDW Plt Count Lymph % (Auto) [place] % (Auto) Lymph # [place] # Baso # Seg Neutrophils % Seg Neuts % (Manual) Lymphocytes % (Manual) Monocytes % (Manual) Eosinophils % (Manual) Basophils % (Manual) Nucleated RBC % Seg Neutrophils # Seg Neutrophils # Man Lymphocytes # (Manual) Monocytes # (Manual) Eosinophils # (Manual) Basophils # (Manual) PT INR Fibrinogen dRVVT Confirm Interp Factor V Activity POC ABG pH POC ABG pCO2 POC ABG pO2 ABG pO2 ABG HCO3 ABG Base Excess ABG Hemoglobin Oxyhemoglobin Sodium Potassium Chloride Carbon Dioxide BUN Creatinine Glucose POC Glucose 139 H 120 H Lactic Acid Calcium Phosphorus Magnesium Direct Bilirubin AST ALT Alkaline Phosphatase Lactate Dehydrogenase Troponin T C-Reactive Protein Total Protein Albumin Prealbumin Triglycerides Cholesterol LDL Cholesterol Direct HDL Cholesterol PTH Intact Urine pH Urine WBC (Auto) Urine Creatinine Urine Total Protein Fluid Total Protein Vancomycin Trough Rheumatoid Factor Complement C4 Miscellaneous Test Crossmatch 12/30/16 12/30/16 12/30/16 04:20 04:20 05:43 WBC 15.6 H RBC 2.81 L Hgb 8.0 L Hct 24.0 L MCV MCH MCHC RDW 16.9 H Plt Count Lymph % (Auto) [place] % (Auto) Lymph # [place] # 1.0 H Baso # Seg Neutrophils % 76.2 H Seg Neuts % (Manual) Lymphocytes % (Manual) Monocytes % (Manual) Eosinophils % (Manual) Basophils % (Manual) Nucleated RBC % Seg Neutrophils # 11.9 H Seg Neutrophils # Man Lymphocytes # (Manual) Monocytes # (Manual) Eosinophils # (Manual) Basophils # (Manual) PT INR Fibrinogen dRVVT Confirm Interp Factor V Activity POC ABG pH POC ABG pCO2 POC ABG pO2 ABG pO2 ABG HCO3 ABG Base Excess ABG Hemoglobin Oxyhemoglobin Sodium Potassium Chloride Carbon Dioxide BUN 87 H Creatinine 1.8 H Glucose 119 H POC Glucose 115 H Lactic Acid Calcium Phosphorus Magnesium Direct Bilirubin AST ALT Alkaline Phosphatase Lactate Dehydrogenase Troponin T C-Reactive Protein Total Protein Albumin Prealbumin Triglycerides Cholesterol LDL Cholesterol Direct HDL Cholesterol PTH Intact Urine pH Urine WBC (Auto) Urine Creatinine Urine Total Protein Fluid Total Protein Vancomycin Trough Rheumatoid Factor Complement C4 Miscellaneous Test Crossmatch 12/30/16 12/30/16 12/31/16 17:27 23:21 04:00 WBC RBC Hgb Hct MCV MCH MCHC RDW Plt Count Lymph % (Auto) [place] % (Auto) Lymph # [place] # Baso # Seg Neutrophils % Seg Neuts % (Manual) Lymphocytes % (Manual) Monocytes % (Manual) Eosinophils % (Manual) Basophils % (Manual) Nucleated RBC % Seg Neutrophils # Seg Neutrophils # Man Lymphocytes # (Manual) Monocytes # (Manual) Eosinophils # (Manual) Basophils # (Manual) PT INR Fibrinogen dRVVT Confirm Interp Factor V Activity POC ABG pH POC ABG pCO2 POC ABG pO2 ABG pO2 ABG HCO3 ABG Base Excess ABG Hemoglobin Oxyhemoglobin Sodium Potassium Chloride Carbon Dioxide BUN 59 H Creatinine Glucose 298 H POC Glucose 144 H 125 H Lactic Acid Calcium Phosphorus Magnesium Direct Bilirubin AST ALT Alkaline Phosphatase Lactate Dehydrogenase Troponin T C-Reactive Protein Total Protein Albumin Prealbumin Triglycerides Cholesterol LDL Cholesterol Direct HDL Cholesterol PTH Intact Urine pH Urine WBC (Auto) Urine Creatinine Urine Total Protein Fluid Total Protein Vancomycin Trough Rheumatoid Factor Complement C4 Miscellaneous Test Crossmatch 12/31/16 12/31/16 12/31/16 05:11 12:18 18:17 WBC RBC Hgb Hct MCV MCH MCHC RDW Plt Count Lymph % (Auto) [place] % (Auto) Lymph # [place] # Baso # Seg Neutrophils % Seg Neuts % (Manual) Lymphocytes % (Manual) Monocytes % (Manual) Eosinophils % (Manual) Basophils % (Manual) Nucleated RBC % Seg Neutrophils # Seg Neutrophils # Man Lymphocytes # (Manual) Monocytes # (Manual) Eosinophils # (Manual) Basophils # (Manual) PT INR Fibrinogen dRVVT Confirm Interp Factor V Activity POC ABG pH POC ABG pCO2 POC ABG pO2 ABG pO2 ABG HCO3 ABG Base Excess ABG Hemoglobin Oxyhemoglobin Sodium Potassium Chloride Carbon Dioxide BUN Creatinine Glucose POC Glucose 167 H 125 H 133 H Lactic Acid Calcium Phosphorus Magnesium Direct Bilirubin AST ALT Alkaline Phosphatase Lactate Dehydrogenase Troponin T C-Reactive Protein Total Protein Albumin Prealbumin Triglycerides Cholesterol LDL Cholesterol Direct HDL Cholesterol PTH Intact Urine pH Urine WBC (Auto) Urine Creatinine Urine Total Protein Fluid Total Protein Vancomycin Trough Rheumatoid Factor Complement C4 Miscellaneous Test Crossmatch 12/31/16 01/01/17 01/01/17 23:55 05:00 05:12 WBC RBC Hgb Hct MCV MCH MCHC RDW Plt Count Lymph % (Auto) [place] % (Auto) Lymph # [place] # Baso # Seg Neutrophils % Seg Neuts % (Manual) Lymphocytes % (Manual) Monocytes % (Manual) Eosinophils % (Manual) Basophils % (Manual) Nucleated RBC % Seg Neutrophils # Seg Neutrophils # Man Lymphocytes # (Manual) Monocytes # (Manual) Eosinophils # (Manual) Basophils # (Manual) PT INR Fibrinogen dRVVT Confirm Interp Factor V Activity POC ABG pH POC ABG pCO2 POC ABG pO2 ABG pO2 ABG HCO3 ABG Base Excess ABG Hemoglobin Oxyhemoglobin Sodium Potassium Chloride Carbon Dioxide BUN 76 H Creatinine 1.5 H Glucose 109 H POC Glucose 129 H 129 H Lactic Acid Calcium Phosphorus Magnesium Direct Bilirubin AST ALT Alkaline Phosphatase 536 H Lactate Dehydrogenase Troponin T C-Reactive Protein Total Protein Albumin 1.5 L Prealbumin Triglycerides Cholesterol LDL Cholesterol Direct HDL Cholesterol PTH Intact Urine pH Urine WBC (Auto) Urine Creatinine Urine Total Protein Fluid Total Protein Vancomycin Trough Rheumatoid Factor Complement C4 Miscellaneous Test Crossmatch 01/01/17 01/01/17 01/01/17 12:25 17:01 23:32 WBC RBC Hgb Hct MCV MCH MCHC RDW Plt Count Lymph % (Auto) [place] % (Auto) Lymph # [place] # Baso # Seg Neutrophils % Seg Neuts % (Manual) Lymphocytes % (Manual) Monocytes % (Manual) Eosinophils % (Manual) Basophils % (Manual) Nucleated RBC % Seg Neutrophils # Seg Neutrophils # Man Lymphocytes # (Manual) Monocytes # (Manual) Eosinophils # (Manual) Basophils # (Manual) PT INR Fibrinogen dRVVT Confirm Interp Factor V Activity POC ABG pH POC ABG pCO2 POC ABG pO2 ABG pO2 ABG HCO3 ABG Base Excess ABG Hemoglobin Oxyhemoglobin Sodium Potassium Chloride Carbon Dioxide BUN Creatinine Glucose POC Glucose 140 H 142 H 112 H Lactic Acid Calcium Phosphorus Magnesium Direct Bilirubin AST ALT Alkaline Phosphatase Lactate Dehydrogenase Troponin T C-Reactive Protein Total Protein Albumin Prealbumin Triglycerides Cholesterol LDL Cholesterol Direct HDL Cholesterol PTH Intact Urine pH Urine WBC (Auto) Urine Creatinine Urine Total Protein Fluid Total Protein Vancomycin Trough Rheumatoid Factor Complement C4 Miscellaneous Test Crossmatch 01/02/17 01/02/17 01/02/17 04:56 06:00 11:37 WBC RBC Hgb Hct MCV MCH MCHC RDW Plt Count Lymph % (Auto) [place] % (Auto) Lymph # [place] # Baso # Seg Neutrophils % Seg Neuts % (Manual) Lymphocytes % (Manual) Monocytes % (Manual) Eosinophils % (Manual) Basophils % (Manual) Nucleated RBC % Seg Neutrophils # Seg Neutrophils # Man Lymphocytes # (Manual) Monocytes # (Manual) Eosinophils # (Manual) Basophils # (Manual) PT INR Fibrinogen dRVVT Confirm Interp Factor V Activity POC ABG pH POC ABG pCO2 POC ABG pO2 ABG pO2 ABG HCO3 ABG Base Excess ABG Hemoglobin Oxyhemoglobin Sodium Potassium Chloride Carbon Dioxide BUN 88 H Creatinine 1.7 H Glucose 113 H POC Glucose 136 H 200 H Lactic Acid Calcium Phosphorus Magnesium Direct Bilirubin AST ALT Alkaline Phosphatase Lactate Dehydrogenase Troponin T C-Reactive Protein Total Protein Albumin Prealbumin Triglycerides Cholesterol LDL Cholesterol Direct HDL Cholesterol PTH Intact Urine pH Urine WBC (Auto) Urine Creatinine Urine Total Protein Fluid Total Protein Vancomycin Trough Rheumatoid Factor Complement C4 Miscellaneous Test Crossmatch 01/02/17 01/02/17 01/03/17 17:42 22:52 04:54 WBC RBC Hgb Hct MCV MCH MCHC RDW Plt Count Lymph % (Auto) [place] % (Auto) Lymph # [place] # Baso # Seg Neutrophils % Seg Neuts % (Manual) Lymphocytes % (Manual) Monocytes % (Manual) Eosinophils % (Manual) Basophils % (Manual) Nucleated RBC % Seg Neutrophils # Seg Neutrophils # Man Lymphocytes # (Manual) Monocytes # (Manual) Eosinophils # (Manual) Basophils # (Manual) PT INR Fibrinogen dRVVT Confirm Interp Factor V Activity POC ABG pH POC ABG pCO2 POC ABG pO2 ABG pO2 ABG HCO3 ABG Base Excess ABG Hemoglobin Oxyhemoglobin Sodium Potassium Chloride Carbon Dioxide BUN Creatinine Glucose POC Glucose 112 H 133 H 111 H Lactic Acid Calcium Phosphorus Magnesium Direct Bilirubin AST ALT Alkaline Phosphatase Lactate Dehydrogenase Troponin T C-Reactive Protein Total Protein Albumin Prealbumin Triglycerides Cholesterol LDL Cholesterol Direct HDL Cholesterol PTH Intact Urine pH Urine WBC (Auto) Urine Creatinine Urine Total Protein Fluid Total Protein Vancomycin Trough Rheumatoid Factor Complement C4 Miscellaneous Test Crossmatch 01/03/17 01/03/17 01/03/17 05:00 05:00 14:02 WBC 11.2 H RBC 2.56 L Hgb 7.2 L Hct 22.3 L MCV MCH MCHC RDW 17.3 H Plt Count Lymph % (Auto) [place] % (Auto) 10.0 H Lymph # [place] # 1.1 H Baso # Seg Neutrophils % 70.5 H Seg Neuts % (Manual) Lymphocytes % (Manual) Monocytes % (Manual) Eosinophils % (Manual) Basophils % (Manual) Nucleated RBC % Seg Neutrophils # 7.9 H Seg Neutrophils # Man Lymphocytes # (Manual) Monocytes # (Manual) Eosinophils # (Manual) Basophils # (Manual) PT INR Fibrinogen dRVVT Confirm Interp Factor V Activity POC ABG pH POC ABG pCO2 POC ABG pO2 ABG pO2 ABG HCO3 ABG Base Excess ABG Hemoglobin Oxyhemoglobin Sodium Potassium Chloride Carbon Dioxide BUN 60 H Creatinine 1.3 H Glucose 110 H POC Glucose 119 H Lactic Acid Calcium Phosphorus Magnesium Direct Bilirubin AST ALT Alkaline Phosphatase Lactate Dehydrogenase Troponin T C-Reactive Protein Total Protein Albumin Prealbumin Triglycerides Cholesterol LDL Cholesterol Direct HDL Cholesterol PTH Intact Urine pH Urine WBC (Auto) Urine Creatinine Urine Total Protein Fluid Total Protein Vancomycin Trough Rheumatoid Factor Complement C4 Miscellaneous Test Crossmatch 01/03/17 01/03/17 01/04/17 18:13 23:40 05:57 WBC RBC Hgb Hct MCV MCH MCHC RDW Plt Count Lymph % (Auto) [place] % (Auto) Lymph # [place] # Baso # Seg Neutrophils % Seg Neuts % (Manual) Lymphocytes % (Manual) Monocytes % (Manual) Eosinophils % (Manual) Basophils % (Manual) Nucleated RBC % Seg Neutrophils # Seg Neutrophils # Man Lymphocytes # (Manual) Monocytes # (Manual) Eosinophils # (Manual) Basophils # (Manual) PT INR Fibrinogen dRVVT Confirm Interp Factor V Activity POC ABG pH POC ABG pCO2 POC ABG pO2 ABG pO2 ABG HCO3 ABG Base Excess ABG Hemoglobin Oxyhemoglobin Sodium Potassium Chloride Carbon Dioxide BUN Creatinine Glucose POC Glucose 107 H 129 H 111 H Lactic Acid Calcium Phosphorus Magnesium Direct Bilirubin AST ALT Alkaline Phosphatase Lactate Dehydrogenase Troponin T C-Reactive Protein Total Protein Albumin Prealbumin Triglycerides Cholesterol LDL Cholesterol Direct HDL Cholesterol PTH Intact Urine pH Urine WBC (Auto) Urine Creatinine Urine Total Protein Fluid Total Protein Vancomycin Trough Rheumatoid Factor Complement C4 Miscellaneous Test Crossmatch 01/04/17 01/04/17 01/04/17 12:46 15:27 17:11 WBC RBC Hgb Hct MCV MCH MCHC RDW Plt Count Lymph % (Auto) [place] % (Auto) Lymph # [place] # Baso # Seg Neutrophils % Seg Neuts % (Manual) Lymphocytes % (Manual) Monocytes % (Manual) Eosinophils % (Manual) Basophils % (Manual) Nucleated RBC % Seg Neutrophils # Seg Neutrophils # Man Lymphocytes # (Manual) Monocytes # (Manual) Eosinophils # (Manual) Basophils # (Manual) PT INR Fibrinogen dRVVT Confirm Interp Factor V Activity POC ABG pH POC ABG pCO2 POC ABG pO2 ABG pO2 ABG HCO3 ABG Base Excess ABG Hemoglobin Oxyhemoglobin Sodium Potassium Chloride Carbon Dioxide BUN 43 H Creatinine Glucose 124 H POC Glucose 159 H 125 H Lactic Acid Calcium 8.0 L Phosphorus 2.10 L Magnesium Direct Bilirubin AST ALT Alkaline Phosphatase Lactate Dehydrogenase Troponin T C-Reactive Protein Total Protein Albumin Prealbumin Triglycerides Cholesterol LDL Cholesterol Direct HDL Cholesterol PTH Intact Urine pH Urine WBC (Auto) Urine Creatinine Urine Total Protein Fluid Total Protein Vancomycin Trough Rheumatoid Factor Complement C4 Miscellaneous Test Crossmatch 01/04/17 01/05/17 01/05/17 23:31 04:00 05:46 WBC RBC Hgb Hct MCV MCH MCHC RDW Plt Count Lymph % (Auto) [place] % (Auto) Lymph # [place] # Baso # Seg Neutrophils % Seg Neuts % (Manual) Lymphocytes % (Manual) Monocytes % (Manual) Eosinophils % (Manual) Basophils % (Manual) Nucleated RBC % Seg Neutrophils # Seg Neutrophils # Man Lymphocytes # (Manual) Monocytes # (Manual) Eosinophils # (Manual) Basophils # (Manual) PT INR Fibrinogen dRVVT Confirm Interp Factor V Activity POC ABG pH POC ABG pCO2 POC ABG pO2 ABG pO2 ABG HCO3 ABG Base Excess ABG Hemoglobin Oxyhemoglobin Sodium Potassium Chloride Carbon Dioxide BUN 52 H Creatinine 1.3 H Glucose 113 H POC Glucose 123 H 118 H Lactic Acid Calcium Phosphorus 2.40 L Magnesium Direct Bilirubin AST ALT Alkaline Phosphatase Lactate Dehydrogenase Troponin T C-Reactive Protein Total Protein Albumin Prealbumin Triglycerides Cholesterol LDL Cholesterol Direct HDL Cholesterol PTH Intact Urine pH Urine WBC (Auto) Urine Creatinine Urine Total Protein Fluid Total Protein Vancomycin Trough Rheumatoid Factor Complement C4 Miscellaneous Test Crossmatch 01/05/17 01/05/17 01/05/17 11:41 17:48 23:27 WBC RBC Hgb Hct MCV MCH MCHC RDW Plt Count Lymph % (Auto) [place] % (Auto) Lymph # [place] # Baso # Seg Neutrophils % Seg Neuts % (Manual) Lymphocytes % (Manual) Monocytes % (Manual) Eosinophils % (Manual) Basophils % (Manual) Nucleated RBC % Seg Neutrophils # Seg Neutrophils # Man Lymphocytes # (Manual) Monocytes # (Manual) Eosinophils # (Manual) Basophils # (Manual) PT INR Fibrinogen dRVVT Confirm Interp Factor V Activity POC ABG pH POC ABG pCO2 POC ABG pO2 ABG pO2 ABG HCO3 ABG Base Excess ABG Hemoglobin Oxyhemoglobin Sodium Potassium Chloride Carbon Dioxide BUN Creatinine Glucose POC Glucose 163 H 142 H 155 H Lactic Acid Calcium Phosphorus Magnesium Direct Bilirubin AST ALT Alkaline Phosphatase Lactate Dehydrogenase Troponin T C-Reactive Protein Total Protein Albumin Prealbumin Triglycerides Cholesterol LDL Cholesterol Direct HDL Cholesterol PTH Intact Urine pH Urine WBC (Auto) Urine Creatinine Urine Total Protein Fluid Total Protein Vancomycin Trough Rheumatoid Factor Complement C4 Miscellaneous Test Crossmatch 01/06/17 01/06/17 01/06/17 05:20 07:35 11:18 WBC RBC Hgb Hct MCV MCH MCHC RDW Plt Count Lymph % (Auto) [place] % (Auto) Lymph # [place] # Baso # Seg Neutrophils % Seg Neuts % (Manual) Lymphocytes % (Manual) Monocytes % (Manual) Eosinophils % (Manual) Basophils % (Manual) Nucleated RBC % Seg Neutrophils # Seg Neutrophils # Man Lymphocytes # (Manual) Monocytes # (Manual) Eosinophils # (Manual) Basophils # (Manual) PT INR Fibrinogen dRVVT Confirm Interp Factor V Activity POC ABG pH POC ABG pCO2 POC ABG pO2 ABG pO2 ABG HCO3 ABG Base Excess ABG Hemoglobin Oxyhemoglobin Sodium Potassium Chloride Carbon Dioxide BUN 74 H Creatinine 1.6 H Glucose 135 H POC Glucose 108 H 149 H Lactic Acid Calcium Phosphorus Magnesium Direct Bilirubin AST ALT Alkaline Phosphatase Lactate Dehydrogenase Troponin T C-Reactive Protein Total Protein Albumin Prealbumin Triglycerides Cholesterol LDL Cholesterol Direct HDL Cholesterol PTH Intact Urine pH Urine WBC (Auto) Urine Creatinine Urine Total Protein Fluid Total Protein Vancomycin Trough Rheumatoid Factor Complement C4 Miscellaneous Test Crossmatch 01/06/17 01/07/17 01/07/17 17:17 00:23 05:31 WBC RBC Hgb Hct MCV MCH MCHC RDW Plt Count Lymph % (Auto) [place] % (Auto) Lymph # [place] # Baso # Seg Neutrophils % Seg Neuts % (Manual) Lymphocytes % (Manual) Monocytes % (Manual) Eosinophils % (Manual) Basophils % (Manual) Nucleated RBC % Seg Neutrophils # Seg Neutrophils # Man Lymphocytes # (Manual) Monocytes # (Manual) Eosinophils # (Manual) Basophils # (Manual) PT INR Fibrinogen dRVVT Confirm Interp Factor V Activity POC ABG pH POC ABG pCO2 POC ABG pO2 ABG pO2 ABG HCO3 ABG Base Excess ABG Hemoglobin Oxyhemoglobin Sodium Potassium Chloride Carbon Dioxide BUN Creatinine Glucose POC Glucose 146 H 165 H 153 H Lactic Acid Calcium Phosphorus Magnesium Direct Bilirubin AST ALT Alkaline Phosphatase Lactate Dehydrogenase Troponin T C-Reactive Protein Total Protein Albumin Prealbumin Triglycerides Cholesterol LDL Cholesterol Direct HDL Cholesterol PTH Intact Urine pH Urine WBC (Auto) Urine Creatinine Urine Total Protein Fluid Total Protein Vancomycin Trough Rheumatoid Factor Complement C4 Miscellaneous Test Crossmatch 01/07/17 01/07/17 01/07/17 06:00 11:39 17:11 WBC RBC Hgb Hct MCV MCH MCHC RDW Plt Count Lymph % (Auto) [place] % (Auto) Lymph # [place] # Baso # Seg Neutrophils % Seg Neuts % (Manual) Lymphocytes % (Manual) Monocytes % (Manual) Eosinophils % (Manual) Basophils % (Manual) Nucleated RBC % Seg Neutrophils # Seg Neutrophils # Man Lymphocytes # (Manual) Monocytes # (Manual) Eosinophils # (Manual) Basophils # (Manual) PT INR Fibrinogen dRVVT Confirm Interp Factor V Activity POC ABG pH POC ABG pCO2 POC ABG pO2 ABG pO2 ABG HCO3 ABG Base Excess ABG Hemoglobin Oxyhemoglobin Sodium Potassium Chloride Carbon Dioxide BUN 42 H Creatinine Glucose 175 H POC Glucose 163 H 163 H Lactic Acid Calcium Phosphorus 2.40 L D Magnesium Direct Bilirubin AST ALT Alkaline Phosphatase Lactate Dehydrogenase Troponin T C-Reactive Protein Total Protein Albumin Prealbumin Triglycerides Cholesterol LDL Cholesterol Direct HDL Cholesterol PTH Intact Urine pH Urine WBC (Auto) Urine Creatinine Urine Total Protein Fluid Total Protein Vancomycin Trough Rheumatoid Factor Complement C4 Miscellaneous Test Crossmatch 01/07/17 01/08/17 01/08/17 23:40 05:00 05:00 WBC 27.4 H RBC 2.27 L Hgb 6.1 L Hct 20.4 L MCV MCH 27 L MCHC RDW 17.8 H Plt Count Lymph % (Auto) [place] % (Auto) Lymph # [place] # Baso # Seg Neutrophils % Seg Neuts % (Manual) Lymphocytes % (Manual) Monocytes % (Manual) Eosinophils % (Manual) Basophils % (Manual) Nucleated RBC % Seg Neutrophils # Seg Neutrophils # Man Lymphocytes # (Manual) Monocytes # (Manual) Eosinophils # (Manual) Basophils # (Manual) PT INR Fibrinogen dRVVT Confirm Interp Factor V Activity POC ABG pH POC ABG pCO2 POC ABG pO2 ABG pO2 ABG HCO3 ABG Base Excess ABG Hemoglobin Oxyhemoglobin Sodium Potassium Chloride Carbon Dioxide 16 L D BUN 62 H Creatinine 1.6 H D Glucose 103 H POC Glucose 135 H Lactic Acid Calcium Phosphorus Magnesium Direct Bilirubin AST ALT Alkaline Phosphatase Lactate Dehydrogenase Troponin T C-Reactive Protein Total Protein Albumin Prealbumin Triglycerides Cholesterol LDL Cholesterol Direct HDL Cholesterol PTH Intact Urine pH Urine WBC (Auto) Urine Creatinine Urine Total Protein Fluid Total Protein Vancomycin Trough Rheumatoid Factor Complement C4 Miscellaneous Test Crossmatch 01/08/17 01/08/17 01/08/17 05:25 10:37 10:37 WBC RBC Hgb Hct MCV MCH MCHC RDW Plt Count Lymph % (Auto) [place] % (Auto) Lymph # [place] # Baso # Seg Neutrophils % Seg Neuts % (Manual) Lymphocytes % (Manual) Monocytes % (Manual) Eosinophils % (Manual) Basophils % (Manual) Nucleated RBC % Seg Neutrophils # Seg Neutrophils # Man Lymphocytes # (Manual) Monocytes # (Manual) Eosinophils # (Manual) Basophils # (Manual) PT INR Fibrinogen dRVVT Confirm Interp Factor V Activity POC ABG pH POC ABG pCO2 POC ABG pO2 ABG pO2 ABG HCO3 ABG Base Excess ABG Hemoglobin Oxyhemoglobin Sodium Potassium Chloride Carbon Dioxide BUN Creatinine Glucose POC Glucose 106 H Lactic Acid Calcium Phosphorus Magnesium Direct Bilirubin AST ALT Alkaline Phosphatase Lactate Dehydrogenase Troponin T C-Reactive Protein 24.40 H Total Protein Albumin Prealbumin Triglycerides Cholesterol LDL Cholesterol Direct HDL Cholesterol PTH Intact Urine pH Urine WBC (Auto) Urine Creatinine Urine Total Protein Fluid Total Protein Vancomycin Trough Rheumatoid Factor Complement C4 Miscellaneous Test Crossmatch See Detail 01/08/17 01/08/17 01/08/17 10:37 11:33 15:15 WBC RBC Hgb Hct MCV MCH MCHC RDW Plt Count Lymph % (Auto) [place] % (Auto) Lymph # [place] # Baso # Seg Neutrophils % Seg Neuts % (Manual) Lymphocytes % (Manual) Monocytes % (Manual) Eosinophils % (Manual) Basophils % (Manual) Nucleated RBC % Seg Neutrophils # Seg Neutrophils # Man Lymphocytes # (Manual) Monocytes # (Manual) Eosinophils # (Manual) Basophils # (Manual) PT INR Fibrinogen dRVVT Confirm Interp Factor V Activity POC ABG pH POC ABG pCO2 POC ABG pO2 ABG pO2 ABG HCO3 ABG Base Excess ABG Hemoglobin Oxyhemoglobin Sodium Potassium Chloride Carbon Dioxide BUN Creatinine Glucose POC Glucose 157 H Lactic Acid 9.70 H* 9.10 H* Calcium Phosphorus Magnesium Direct Bilirubin AST ALT Alkaline Phosphatase Lactate Dehydrogenase Troponin T C-Reactive Protein Total Protein Albumin Prealbumin Triglycerides Cholesterol LDL Cholesterol Direct HDL Cholesterol PTH Intact Urine pH Urine WBC (Auto) Urine Creatinine Urine Total Protein Fluid Total Protein Vancomycin Trough Rheumatoid Factor Complement C4 Miscellaneous Test Crossmatch 01/08/17 01/08/17 01/09/17 17:19 23:12 04:40 WBC RBC Hgb Hct MCV MCH MCHC RDW Plt Count Lymph % (Auto) [place] % (Auto) Lymph # [place] # Baso # Seg Neutrophils % Seg Neuts % (Manual) Lymphocytes % (Manual) Monocytes % (Manual) Eosinophils % (Manual) Basophils % (Manual) Nucleated RBC % Seg Neutrophils # Seg Neutrophils # Man Lymphocytes # (Manual) Monocytes # (Manual) Eosinophils # (Manual) Basophils # (Manual) PT INR Fibrinogen dRVVT Confirm Interp Factor V Activity POC ABG pH POC ABG pCO2 POC ABG pO2 ABG pO2 ABG HCO3 ABG Base Excess ABG Hemoglobin Oxyhemoglobin Sodium 147 H Potassium Chloride Carbon Dioxide BUN 82 H Creatinine 1.8 H Glucose 137 H POC Glucose 164 H 157 H Lactic Acid Calcium Phosphorus Magnesium Direct Bilirubin AST ALT Alkaline Phosphatase Lactate Dehydrogenase Troponin T C-Reactive Protein Total Protein Albumin Prealbumin Triglycerides Cholesterol LDL Cholesterol Direct HDL Cholesterol PTH Intact Urine pH Urine WBC (Auto) Urine Creatinine Urine Total Protein Fluid Total Protein Vancomycin Trough Rheumatoid Factor Complement C4 Miscellaneous Test Crossmatch 01/09/17 01/09/17 01/09/17 05:42 08:22 10:57 WBC RBC Hgb Hct MCV MCH MCHC RDW Plt Count Lymph % (Auto) [place] % (Auto) Lymph # [place] # Baso # Seg Neutrophils % Seg Neuts % (Manual) Lymphocytes % (Manual) Monocytes % (Manual) Eosinophils % (Manual) Basophils % (Manual) Nucleated RBC % Seg Neutrophils # Seg Neutrophils # Man Lymphocytes # (Manual) Monocytes # (Manual) Eosinophils # (Manual) Basophils # (Manual) PT INR Fibrinogen dRVVT Confirm Interp Factor V Activity POC ABG pH POC ABG pCO2 POC ABG pO2 ABG pO2 ABG HCO3 ABG Base Excess ABG Hemoglobin Oxyhemoglobin Sodium Potassium Chloride Carbon Dioxide BUN Creatinine Glucose POC Glucose 156 H 122 H Lactic Acid 2.30 H* Calcium Phosphorus Magnesium Direct Bilirubin AST ALT Alkaline Phosphatase Lactate Dehydrogenase Troponin T C-Reactive Protein Total Protein Albumin Prealbumin Triglycerides Cholesterol LDL Cholesterol Direct HDL Cholesterol PTH Intact Urine pH Urine WBC (Auto) Urine Creatinine Urine Total Protein Fluid Total Protein Vancomycin Trough Rheumatoid Factor Complement C4 Miscellaneous Test Crossmatch 01/09/17 01/09/17 01/09/17 13:30 17:14 18:45 WBC RBC Hgb Hct MCV MCH MCHC RDW Plt Count Lymph % (Auto) [place] % (Auto) Lymph # [place] # Baso # Seg Neutrophils % Seg Neuts % (Manual) Lymphocytes % (Manual) Monocytes % (Manual) Eosinophils % (Manual) Basophils % (Manual) Nucleated RBC % Seg Neutrophils # Seg Neutrophils # Man Lymphocytes # (Manual) Monocytes # (Manual) Eosinophils # (Manual) Basophils # (Manual) PT INR Fibrinogen dRVVT Confirm Interp Factor V Activity POC ABG pH POC ABG pCO2 POC ABG pO2 ABG pO2 ABG HCO3 ABG Base Excess ABG Hemoglobin Oxyhemoglobin Sodium Potassium Chloride Carbon Dioxide BUN Creatinine Glucose POC Glucose 127 H Lactic Acid Calcium Phosphorus Magnesium Direct Bilirubin AST ALT Alkaline Phosphatase Lactate Dehydrogenase Troponin T C-Reactive Protein 24.70 H Total Protein Albumin Prealbumin Triglycerides Cholesterol LDL Cholesterol Direct HDL Cholesterol PTH Intact Urine pH Urine WBC (Auto) Urine Creatinine Urine Total Protein Fluid Total Protein Vancomycin Trough Rheumatoid Factor Complement C4 Miscellaneous Test Flexitest 1 H Crossmatch 01/10/17 01/10/17 01/10/17 01:21 04:00 04:00 WBC 18.1 H RBC 3.22 L Hgb 8.8 L Hct 27.0 L D MCV MCH 27 L MCHC RDW 17.0 H Plt Count Lymph % (Auto) [place] % (Auto) Lymph # [place] # Baso # Seg Neutrophils % Seg Neuts % (Manual) Lymphocytes % (Manual) Monocytes % (Manual) Eosinophils % (Manual) Basophils % (Manual) Nucleated RBC % Seg Neutrophils # Seg Neutrophils # Man Lymphocytes # (Manual) Monocytes # (Manual) Eosinophils # (Manual) Basophils # (Manual) PT INR Fibrinogen dRVVT Confirm Interp Factor V Activity POC ABG pH POC ABG pCO2 POC ABG pO2 ABG pO2 ABG HCO3 ABG Base Excess ABG Hemoglobin Oxyhemoglobin Sodium Potassium Chloride Carbon Dioxide BUN 59 H Creatinine 1.3 H Glucose 122 H POC Glucose 160 H Lactic Acid Calcium Phosphorus Magnesium Direct Bilirubin AST ALT Alkaline Phosphatase Lactate Dehydrogenase Troponin T C-Reactive Protein Total Protein Albumin Prealbumin Triglycerides Cholesterol LDL Cholesterol Direct HDL Cholesterol PTH Intact Urine pH Urine WBC (Auto) Urine Creatinine Urine Total Protein Fluid Total Protein Vancomycin Trough Rheumatoid Factor Complement C4 Miscellaneous Test Crossmatch 01/10/17 01/10/17 01/10/17 05:36 12:14 17:55 WBC RBC Hgb Hct MCV MCH MCHC RDW Plt Count Lymph % (Auto) [place] % (Auto) Lymph # [place] # Baso # Seg Neutrophils % Seg Neuts % (Manual) Lymphocytes % (Manual) Monocytes % (Manual) Eosinophils % (Manual) Basophils % (Manual) Nucleated RBC % Seg Neutrophils # Seg Neutrophils # Man Lymphocytes # (Manual) Monocytes # (Manual) Eosinophils # (Manual) Basophils # (Manual) PT INR Fibrinogen dRVVT Confirm Interp Factor V Activity POC ABG pH POC ABG pCO2 POC ABG pO2 ABG pO2 ABG HCO3 ABG Base Excess ABG Hemoglobin Oxyhemoglobin Sodium Potassium Chloride Carbon Dioxide BUN Creatinine Glucose POC Glucose 163 H 120 H 144 H Lactic Acid Calcium Phosphorus Magnesium Direct Bilirubin AST ALT Alkaline Phosphatase Lactate Dehydrogenase Troponin T C-Reactive Protein Total Protein Albumin Prealbumin Triglycerides Cholesterol LDL Cholesterol Direct HDL Cholesterol PTH Intact Urine pH Urine WBC (Auto) Urine Creatinine Urine Total Protein Fluid Total Protein Vancomycin Trough Rheumatoid Factor Complement C4 Miscellaneous Test Crossmatch 01/11/17 01/11/17 01/11/17 00:09 04:00 04:00 WBC 15.8 H RBC 3.04 L Hgb 8.2 L Hct 25.5 L MCV MCH 27 L MCHC RDW 17.3 H Plt Count Lymph % (Auto) [place] % (Auto) Lymph # [place] # Baso # Seg Neutrophils % Seg Neuts % (Manual) Lymphocytes % (Manual) Monocytes % (Manual) Eosinophils % (Manual) Basophils % (Manual) Nucleated RBC % Seg Neutrophils # Seg Neutrophils # Man Lymphocytes # (Manual) Monocytes # (Manual) Eosinophils # (Manual) Basophils # (Manual) PT INR Fibrinogen dRVVT Confirm Interp Factor V Activity POC ABG pH POC ABG pCO2 POC ABG pO2 ABG pO2 ABG HCO3 ABG Base Excess ABG Hemoglobin Oxyhemoglobin Sodium Potassium Chloride Carbon Dioxide BUN 78 H Creatinine 1.6 H Glucose 109 H POC Glucose 122 H Lactic Acid Calcium Phosphorus Magnesium Direct Bilirubin AST ALT Alkaline Phosphatase Lactate Dehydrogenase Troponin T C-Reactive Protein Total Protein Albumin Prealbumin Triglycerides Cholesterol LDL Cholesterol Direct HDL Cholesterol PTH Intact Urine pH Urine WBC (Auto) Urine Creatinine Urine Total Protein Fluid Total Protein Vancomycin Trough Rheumatoid Factor Complement C4 Miscellaneous Test Crossmatch 01/11/17 01/11/17 01/11/17 12:46 18:23 23:42 WBC RBC Hgb Hct MCV MCH MCHC RDW Plt Count Lymph % (Auto) [place] % (Auto) Lymph # [place] # Baso # Seg Neutrophils % Seg Neuts % (Manual) Lymphocytes % (Manual) Monocytes % (Manual) Eosinophils % (Manual) Basophils % (Manual) Nucleated RBC % Seg Neutrophils # Seg Neutrophils # Man Lymphocytes # (Manual) Monocytes # (Manual) Eosinophils # (Manual) Basophils # (Manual) PT INR Fibrinogen dRVVT Confirm Interp Factor V Activity POC ABG pH POC ABG pCO2 POC ABG pO2 ABG pO2 ABG HCO3 ABG Base Excess ABG Hemoglobin Oxyhemoglobin Sodium Potassium Chloride Carbon Dioxide BUN Creatinine Glucose POC Glucose 148 H 125 H 124 H Lactic Acid Calcium Phosphorus Magnesium Direct Bilirubin AST ALT Alkaline Phosphatase Lactate Dehydrogenase Troponin T C-Reactive Protein Total Protein Albumin Prealbumin Triglycerides Cholesterol LDL Cholesterol Direct HDL Cholesterol PTH Intact Urine pH Urine WBC (Auto) Urine Creatinine Urine Total Protein Fluid Total Protein Vancomycin Trough Rheumatoid Factor Complement C4 Miscellaneous Test Crossmatch 01/12/17 01/12/17 01/12/17 04:30 04:30 05:47 WBC 15.8 H RBC 3.31 L Hgb 8.9 L Hct 27.9 L MCV MCH 27 L MCHC RDW 17.4 H Plt Count Lymph % (Auto) [place] % (Auto) Lymph # [place] # Baso # Seg Neutrophils % Seg Neuts % (Manual) Lymphocytes % (Manual) Monocytes % (Manual) Eosinophils % (Manual) Basophils % (Manual) Nucleated RBC % Seg Neutrophils # Seg Neutrophils # Man Lymphocytes # (Manual) Monocytes # (Manual) Eosinophils # (Manual) Basophils # (Manual) PT INR Fibrinogen dRVVT Confirm Interp Factor V Activity POC ABG pH POC ABG pCO2 POC ABG pO2 ABG pO2 ABG HCO3 ABG Base Excess ABG Hemoglobin Oxyhemoglobin Sodium Potassium Chloride Carbon Dioxide BUN 57 H Creatinine Glucose 121 H POC Glucose 110 H Lactic Acid Calcium Phosphorus 2.10 L Magnesium Direct Bilirubin AST ALT Alkaline Phosphatase Lactate Dehydrogenase Troponin T C-Reactive Protein Total Protein Albumin Prealbumin Triglycerides Cholesterol LDL Cholesterol Direct HDL Cholesterol PTH Intact Urine pH Urine WBC (Auto) Urine Creatinine Urine Total Protein Fluid Total Protein Vancomycin Trough Rheumatoid Factor Complement C4 Miscellaneous Test Crossmatch 01/12/17 01/12/17 01/12/17 11:35 17:45 23:14 WBC RBC Hgb Hct MCV MCH MCHC RDW Plt Count Lymph % (Auto) [place] % (Auto) Lymph # [place] # Baso # Seg Neutrophils % Seg Neuts % (Manual) Lymphocytes % (Manual) Monocytes % (Manual) Eosinophils % (Manual) Basophils % (Manual) Nucleated RBC % Seg Neutrophils # Seg Neutrophils # Man Lymphocytes # (Manual) Monocytes # (Manual) Eosinophils # (Manual) Basophils # (Manual) PT INR Fibrinogen dRVVT Confirm Interp Factor V Activity POC ABG pH POC ABG pCO2 POC ABG pO2 ABG pO2 ABG HCO3 ABG Base Excess ABG Hemoglobin Oxyhemoglobin Sodium Potassium Chloride Carbon Dioxide BUN Creatinine Glucose POC Glucose 146 H 117 H 123 H Lactic Acid Calcium Phosphorus Magnesium Direct Bilirubin AST ALT Alkaline Phosphatase Lactate Dehydrogenase Troponin T C-Reactive Protein Total Protein Albumin Prealbumin Triglycerides Cholesterol LDL Cholesterol Direct HDL Cholesterol PTH Intact Urine pH Urine WBC (Auto) Urine Creatinine Urine Total Protein Fluid Total Protein Vancomycin Trough Rheumatoid Factor Complement C4 Miscellaneous Test Crossmatch 01/13/17 01/13/17 01/13/17 05:32 06:00 12:10 WBC RBC Hgb Hct MCV MCH MCHC RDW Plt Count Lymph % (Auto) [place] % (Auto) Lymph # [place] # Baso # Seg Neutrophils % Seg Neuts % (Manual) Lymphocytes % (Manual) Monocytes % (Manual) Eosinophils % (Manual) Basophils % (Manual) Nucleated RBC % Seg Neutrophils # Seg Neutrophils # Man Lymphocytes # (Manual) Monocytes # (Manual) Eosinophils # (Manual) Basophils # (Manual) PT INR Fibrinogen dRVVT Confirm Interp Factor V Activity POC ABG pH POC ABG pCO2 POC ABG pO2 ABG pO2 ABG HCO3 ABG Base Excess ABG Hemoglobin Oxyhemoglobin Sodium Potassium Chloride Carbon Dioxide BUN 80 H Creatinine 1.4 H Glucose 106 H POC Glucose 106 H Lactic Acid Calcium Phosphorus Magnesium Direct Bilirubin AST ALT Alkaline Phosphatase Lactate Dehydrogenase Troponin T C-Reactive Protein Total Protein Albumin Prealbumin Triglycerides Cholesterol LDL Cholesterol Direct HDL Cholesterol PTH Intact Urine pH Urine WBC (Auto) Urine Creatinine Urine Total Protein Fluid Total Protein 3.0 L Vancomycin Trough Rheumatoid Factor Complement C4 Miscellaneous Test Crossmatch 01/13/17 01/13/17 01/13/17 12:17 15:50 17:30 WBC RBC Hgb Hct MCV MCH MCHC RDW Plt Count Lymph % (Auto) [place] % (Auto) Lymph # [place] # Baso # Seg Neutrophils % Seg Neuts % (Manual) Lymphocytes % (Manual) Monocytes % (Manual) Eosinophils % (Manual) Basophils % (Manual) Nucleated RBC % Seg Neutrophils # Seg Neutrophils # Man Lymphocytes # (Manual) Monocytes # (Manual) Eosinophils # (Manual) Basophils # (Manual) PT 15.4 H INR 1.16 H Fibrinogen dRVVT Confirm Interp Factor V Activity POC ABG pH POC ABG pCO2 POC ABG pO2 ABG pO2 ABG HCO3 ABG Base Excess ABG Hemoglobin Oxyhemoglobin Sodium Potassium Chloride Carbon Dioxide BUN Creatinine Glucose POC Glucose 168 H 110 H Lactic Acid Calcium Phosphorus Magnesium Direct Bilirubin AST ALT Alkaline Phosphatase Lactate Dehydrogenase Troponin T C-Reactive Protein Total Protein Albumin Prealbumin Triglycerides Cholesterol LDL Cholesterol Direct HDL Cholesterol PTH Intact Urine pH Urine WBC (Auto) Urine Creatinine Urine Total Protein Fluid Total Protein Vancomycin Trough Rheumatoid Factor Complement C4 Miscellaneous Test Crossmatch 01/13/17 01/14/17 01/14/17 23:42 05:24 05:30 WBC RBC Hgb Hct MCV MCH MCHC RDW Plt Count Lymph % (Auto) [place] % (Auto) Lymph # [place] # Baso # Seg Neutrophils % Seg Neuts % (Manual) Lymphocytes % (Manual) Monocytes % (Manual) Eosinophils % (Manual) Basophils % (Manual) Nucleated RBC % Seg Neutrophils # Seg Neutrophils # Man Lymphocytes # (Manual) Monocytes # (Manual) Eosinophils # (Manual) Basophils # (Manual) PT INR Fibrinogen dRVVT Confirm Interp Factor V Activity POC ABG pH POC ABG pCO2 POC ABG pO2 ABG pO2 ABG HCO3 ABG Base Excess ABG Hemoglobin Oxyhemoglobin Sodium Potassium Chloride Carbon Dioxide BUN 58 H Creatinine Glucose 114 H POC Glucose 155 H 121 H Lactic Acid Calcium Phosphorus Magnesium Direct Bilirubin AST ALT Alkaline Phosphatase Lactate Dehydrogenase Troponin T C-Reactive Protein Total Protein Albumin Prealbumin Triglycerides Cholesterol LDL Cholesterol Direct HDL Cholesterol PTH Intact Urine pH Urine WBC (Auto) Urine Creatinine Urine Total Protein Fluid Total Protein Vancomycin Trough Rheumatoid Factor Complement C4 Miscellaneous Test Crossmatch 01/14/17 01/14/1717 12:48 17:36 00:15 WBC RBC Hgb Hct MCV MCH MCHC RDW Plt Count Lymph % (Auto) [place] % (Auto) Lymph # [place] # Baso # Seg Neutrophils % Seg Neuts % (Manual) Lymphocytes % (Manual) Monocytes % (Manual) Eosinophils % (Manual) Basophils % (Manual) Nucleated RBC % Seg Neutrophils # Seg Neutrophils # Man Lymphocytes # (Manual) Monocytes # (Manual) Eosinophils # (Manual) Basophils # (Manual) PT INR Fibrinogen dRVVT Confirm Interp Factor V Activity POC ABG pH POC ABG pCO2 POC ABG pO2 ABG pO2 ABG HCO3 ABG Base Excess ABG Hemoglobin Oxyhemoglobin Sodium Potassium Chloride Carbon Dioxide BUN Creatinine Glucose POC Glucose 130 H 135 H 132 H Lactic Acid Calcium Phosphorus Magnesium Direct Bilirubin AST ALT Alkaline Phosphatase Lactate Dehydrogenase Troponin T C-Reactive Protein Total Protein Albumin Prealbumin Triglycerides Cholesterol LDL Cholesterol Direct HDL Cholesterol PTH Intact Urine pH Urine WBC (Auto) Urine Creatinine Urine Total Protein Fluid Total Protein Vancomycin Trough Rheumatoid Factor Complement C4 Miscellaneous Test Crossmatch 01/15/17 01/15/17 01/15/17 05:01 11:55 12:45 WBC 16.2 H RBC 3.00 L Hgb 8.1 L Hct 25.4 L MCV MCH 27 L MCHC RDW 17.6 H Plt Count Lymph % (Auto) 11.7 L [place] % (Auto) 7.8 H Lymph # [place] # 1.3 H Baso # Seg Neutrophils % 80.1 H Seg Neuts % (Manual) Lymphocytes % (Manual) Monocytes % (Manual) Eosinophils % (Manual) Basophils % (Manual) Nucleated RBC % Seg Neutrophils # 13.0 H Seg Neutrophils # Man Lymphocytes # (Manual) Monocytes # (Manual) Eosinophils # (Manual) Basophils # (Manual) PT INR Fibrinogen dRVVT Confirm Interp Factor V Activity POC ABG pH POC ABG pCO2 POC ABG pO2 ABG pO2 ABG HCO3 ABG Base Excess ABG Hemoglobin Oxyhemoglobin Sodium Potassium Chloride Carbon Dioxide BUN Creatinine Glucose POC Glucose 126 H 125 H Lactic Acid Calcium Phosphorus Magnesium Direct Bilirubin AST ALT Alkaline Phosphatase Lactate Dehydrogenase Troponin T C-Reactive Protein Total Protein Albumin Prealbumin Triglycerides Cholesterol LDL Cholesterol Direct HDL Cholesterol PTH Intact Urine pH Urine WBC (Auto) Urine Creatinine Urine Total Protein Fluid Total Protein Vancomycin Trough Rheumatoid Factor Complement C4 Miscellaneous Test Crossmatch 11/01/15/17 01/15/17 12:45 17:31 23:39 WBC RBC Hgb Hct MCV MCH MCHC RDW Plt Count Lymph % (Auto) [place] % (Auto) Lymph # [place] # Baso # Seg Neutrophils % Seg Neuts % (Manual) Lymphocytes % (Manual) Monocytes % (Manual) Eosinophils % (Manual) Basophils % (Manual) Nucleated RBC % Seg Neutrophils # Seg Neutrophils # Man Lymphocytes # (Manual) Monocytes # (Manual) Eosinophils # (Manual) Basophils # (Manual) PT INR Fibrinogen dRVVT Confirm Interp Factor V Activity POC ABG pH POC ABG pCO2 POC ABG pO2 ABG pO2 ABG HCO3 ABG Base Excess ABG Hemoglobin Oxyhemoglobin Sodium 136 L Potassium Chloride Carbon Dioxide BUN 87 H Creatinine 1.7 H Glucose 108 H POC Glucose 129 H 112 H Lactic Acid Calcium Phosphorus Magnesium Direct Bilirubin AST ALT Alkaline Phosphatase Lactate Dehydrogenase Troponin T C-Reactive Protein Total Protein Albumin Prealbumin Triglycerides Cholesterol LDL Cholesterol Direct HDL Cholesterol PTH Intact Urine pH Urine WBC (Auto) Urine Creatinine Urine Total Protein Fluid Total Protein Vancomycin Trough Rheumatoid Factor Complement C4 Miscellaneous Test Crossmatch 01/16/17 01/16/17 01/16/17 05:23 11:42 12:32 WBC RBC Hgb Hct MCV MCH MCHC RDW Plt Count Lymph % (Auto) [place] % (Auto) Lymph # [place] # Baso # Seg Neutrophils % Seg Neuts % (Manual) Lymphocytes % (Manual) Monocytes % (Manual) Eosinophils % (Manual) Basophils % (Manual) Nucleated RBC % Seg Neutrophils # Seg Neutrophils # Man Lymphocytes # (Manual) Monocytes # (Manual) Eosinophils # (Manual) Basophils # (Manual) PT INR Fibrinogen dRVVT Confirm Interp Factor V Activity POC ABG pH 7.499 H POC ABG pCO2 30.9 L POC ABG pO2 51 L ABG pO2 ABG HCO3 ABG Base Excess ABG Hemoglobin Oxyhemoglobin Sodium Potassium Chloride Carbon Dioxide BUN Creatinine Glucose POC Glucose 118 H 133 H Lactic Acid Calcium Phosphorus Magnesium Direct Bilirubin AST ALT Alkaline Phosphatase Lactate Dehydrogenase Troponin T C-Reactive Protein Total Protein Albumin Prealbumin Triglycerides Cholesterol LDL Cholesterol Direct HDL Cholesterol PTH Intact Urine pH Urine WBC (Auto) Urine Creatinine Urine Total Protein Fluid Total Protein Vancomycin Trough Rheumatoid Factor Complement C4 Miscellaneous Test Crossmatch 01/16/17 01/16/17 01/16/17 17:52 23:57 Unknown WBC RBC Hgb Hct MCV MCH MCHC RDW Plt Count Lymph % (Auto) [place] % (Auto) Lymph # [place] # Baso # Seg Neutrophils % Seg Neuts % (Manual) Lymphocytes % (Manual) Monocytes % (Manual) Eosinophils % (Manual) Basophils % (Manual) Nucleated RBC % Seg Neutrophils # Seg Neutrophils # Man Lymphocytes # (Manual) Monocytes # (Manual) Eosinophils # (Manual) Basophils # (Manual) PT INR Fibrinogen dRVVT Confirm Interp Factor V Activity POC ABG pH POC ABG pCO2 POC ABG pO2 ABG pO2 ABG HCO3 ABG Base Excess ABG Hemoglobin Oxyhemoglobin Sodium 135 L Potassium Chloride Carbon Dioxide BUN 101 H Creatinine 1.8 H Glucose 117 H POC Glucose 130 H 143 H Lactic Acid Calcium Phosphorus 5.80 H Magnesium Direct Bilirubin AST ALT Alkaline Phosphatase Lactate Dehydrogenase Troponin T C-Reactive Protein Total Protein Albumin Prealbumin Triglycerides Cholesterol LDL Cholesterol Direct HDL Cholesterol PTH Intact Urine pH Urine WBC (Auto) Urine Creatinine Urine Total Protein Fluid Total Protein Vancomycin Trough Rheumatoid Factor Complement C4 Miscellaneous Test Crossmatch 01/17/17 01/17/17 01/17/17 05:30 05:46 11:49 WBC RBC Hgb Hct MCV MCH MCHC RDW Plt Count Lymph % (Auto) [place] % (Auto) Lymph # [place] # Baso # Seg Neutrophils % Seg Neuts % (Manual) Lymphocytes % (Manual) Monocytes % (Manual) Eosinophils % (Manual) Basophils % (Manual) Nucleated RBC % Seg Neutrophils # Seg Neutrophils # Man Lymphocytes # (Manual) Monocytes # (Manual) Eosinophils # (Manual) Basophils # (Manual) PT INR Fibrinogen dRVVT Confirm Interp Factor V Activity POC ABG pH POC ABG pCO2 POC ABG pO2 ABG pO2 ABG HCO3 ABG Base Excess ABG Hemoglobin Oxyhemoglobin Sodium 134 L Potassium Chloride 95.8 L Carbon Dioxide BUN 66 H Creatinine 1.3 H Glucose 138 H POC Glucose 147 H 124 H Lactic Acid Calcium Phosphorus Magnesium Direct Bilirubin AST ALT Alkaline Phosphatase 254 H Lactate Dehydrogenase Troponin T C-Reactive Protein Total Protein Albumin 1.3 L Prealbumin Triglycerides Cholesterol LDL Cholesterol Direct HDL Cholesterol PTH Intact Urine pH Urine WBC (Auto) Urine Creatinine Urine Total Protein Fluid Total Protein Vancomycin Trough Rheumatoid Factor Complement C4 Miscellaneous Test Crossmatch 01/17/17 01/17/17 01/18/17 17:30 23:41 05:15 WBC RBC Hgb Hct MCV MCH MCHC RDW Plt Count Lymph % (Auto) [place] % (Auto) Lymph # [place] # Baso # Seg Neutrophils % Seg Neuts % (Manual) Lymphocytes % (Manual) Monocytes % (Manual) Eosinophils % (Manual) Basophils % (Manual) Nucleated RBC % Seg Neutrophils # Seg Neutrophils # Man Lymphocytes # (Manual) Monocytes # (Manual) Eosinophils # (Manual) Basophils # (Manual) PT INR Fibrinogen dRVVT Confirm Interp Factor V Activity POC ABG pH POC ABG pCO2 POC ABG pO2 ABG pO2 ABG HCO3 ABG Base Excess ABG Hemoglobin Oxyhemoglobin Sodium Potassium Chloride Carbon Dioxide BUN 89 H Creatinine 1.7 H Glucose 118 H POC Glucose 137 H 119 H Lactic Acid Calcium Phosphorus Magnesium Direct Bilirubin AST ALT Alkaline Phosphatase Lactate Dehydrogenase Troponin T C-Reactive Protein Total Protein Albumin Prealbumin Triglycerides Cholesterol LDL Cholesterol Direct HDL Cholesterol PTH Intact Urine pH Urine WBC (Auto) Urine Creatinine Urine Total Protein Fluid Total Protein Vancomycin Trough Rheumatoid Factor Complement C4 Miscellaneous Test Crossmatch 01/18/17 01/18/17 01/18/17 05:19 12:16 18:11 WBC RBC Hgb Hct MCV MCH MCHC RDW Plt Count Lymph % (Auto) [place] % (Auto) Lymph # [place] # Baso # Seg Neutrophils % Seg Neuts % (Manual) Lymphocytes % (Manual) Monocytes % (Manual) Eosinophils % (Manual) Basophils % (Manual) Nucleated RBC % Seg Neutrophils # Seg Neutrophils # Man Lymphocytes # (Manual) Monocytes # (Manual) Eosinophils # (Manual) Basophils # (Manual) PT INR Fibrinogen dRVVT Confirm Interp Factor V Activity POC ABG pH POC ABG pCO2 POC ABG pO2 ABG pO2 ABG HCO3 ABG Base Excess ABG Hemoglobin Oxyhemoglobin Sodium Potassium Chloride Carbon Dioxide BUN Creatinine Glucose POC Glucose 134 H 188 H 113 H Lactic Acid Calcium Phosphorus Magnesium Direct Bilirubin AST ALT Alkaline Phosphatase Lactate Dehydrogenase Troponin T C-Reactive Protein Total Protein Albumin Prealbumin Triglycerides Cholesterol LDL Cholesterol Direct HDL Cholesterol PTH Intact Urine pH Urine WBC (Auto) Urine Creatinine Urine Total Protein Fluid Total Protein Vancomycin Trough Rheumatoid Factor Complement C4 Miscellaneous Test Crossmatch 01/19/17 01/19/17 01/19/17 00:00 05:30 05:36 WBC RBC Hgb Hct MCV MCH MCHC RDW Plt Count Lymph % (Auto) [place] % (Auto) Lymph # [place] # Baso # Seg Neutrophils % Seg Neuts % (Manual) Lymphocytes % (Manual) Monocytes % (Manual) Eosinophils % (Manual) Basophils % (Manual) Nucleated RBC % Seg Neutrophils # Seg Neutrophils # Man Lymphocytes # (Manual) Monocytes # (Manual) Eosinophils # (Manual) Basophils # (Manual) PT INR Fibrinogen dRVVT Confirm Interp Factor V Activity POC ABG pH POC ABG pCO2 POC ABG pO2 ABG pO2 ABG HCO3 ABG Base Excess ABG Hemoglobin Oxyhemoglobin Sodium Potassium Chloride Carbon Dioxide BUN 70 H Creatinine 1.5 H Glucose 121 H POC Glucose 137 H 155 H Lactic Acid Calcium Phosphorus 2.10 L D Magnesium Direct Bilirubin AST ALT Alkaline Phosphatase Lactate Dehydrogenase Troponin T C-Reactive Protein Total Protein Albumin Prealbumin Triglycerides Cholesterol LDL Cholesterol Direct HDL Cholesterol PTH Intact Urine pH Urine WBC (Auto) Urine Creatinine Urine Total Protein Fluid Total Protein Vancomycin Trough Rheumatoid Factor Complement C4 Miscellaneous Test Crossmatch 01/19/17 01/19/17 01/19/17 11:59 15:32 17:57 WBC RBC Hgb Hct MCV MCH MCHC RDW Plt Count Lymph % (Auto) [place] % (Auto) Lymph # [place] # Baso # Seg Neutrophils % Seg Neuts % (Manual) Lymphocytes % (Manual) Monocytes % (Manual) Eosinophils % (Manual) Basophils % (Manual) Nucleated RBC % Seg Neutrophils # Seg Neutrophils # Man Lymphocytes # (Manual) Monocytes # (Manual) Eosinophils # (Manual) Basophils # (Manual) PT INR Fibrinogen dRVVT Confirm Interp Factor V Activity POC ABG pH POC ABG pCO2 33.1 L POC ABG pO2 76 L ABG pO2 ABG HCO3 ABG Base Excess ABG Hemoglobin Oxyhemoglobin Sodium Potassium Chloride Carbon Dioxide BUN Creatinine Glucose POC Glucose 156 H 129 H Lactic Acid Calcium Phosphorus Magnesium Direct Bilirubin AST ALT Alkaline Phosphatase Lactate Dehydrogenase Troponin T C-Reactive Protein Total Protein Albumin Prealbumin Triglycerides Cholesterol LDL Cholesterol Direct HDL Cholesterol PTH Intact Urine pH Urine WBC (Auto) Urine Creatinine Urine Total Protein Fluid Total Protein Vancomycin Trough Rheumatoid Factor Complement C4 Miscellaneous Test Crossmatch 01/19/17 01/20/17 01/20/17 23:49 04:00 05:21 WBC RBC Hgb Hct MCV MCH MCHC RDW Plt Count Lymph % (Auto) [place] % (Auto) Lymph # [place] # Baso # Seg Neutrophils % Seg Neuts % (Manual) Lymphocytes % (Manual) Monocytes % (Manual) Eosinophils % (Manual) Basophils % (Manual) Nucleated RBC % Seg Neutrophils # Seg Neutrophils # Man Lymphocytes # (Manual) Monocytes # (Manual) Eosinophils # (Manual) Basophils # (Manual) PT INR Fibrinogen dRVVT Confirm Interp Factor V Activity POC ABG pH POC ABG pCO2 POC ABG pO2 ABG pO2 ABG HCO3 ABG Base Excess ABG Hemoglobin Oxyhemoglobin Sodium Potassium Chloride Carbon Dioxide BUN 96 H Creatinine 1.9 H Glucose 106 H POC Glucose 125 H 130 H Lactic Acid Calcium Phosphorus 2.40 L Magnesium Direct Bilirubin AST ALT Alkaline Phosphatase Lactate Dehydrogenase Troponin T C-Reactive Protein Total Protein Albumin Prealbumin Triglycerides Cholesterol LDL Cholesterol Direct HDL Cholesterol PTH Intact Urine pH Urine WBC (Auto) Urine Creatinine Urine Total Protein Fluid Total Protein Vancomycin Trough Rheumatoid Factor Complement C4 Miscellaneous Test Crossmatch 01/20/17 01/20/17 01/20/17 11:58 12:17 17:26 WBC RBC Hgb Hct MCV MCH MCHC RDW Plt Count Lymph % (Auto) [place] % (Auto) Lymph # [place] # Baso # Seg Neutrophils % Seg Neuts % (Manual) Lymphocytes % (Manual) Monocytes % (Manual) Eosinophils % (Manual) Basophils % (Manual) Nucleated RBC % Seg Neutrophils # Seg Neutrophils # Man Lymphocytes # (Manual) Monocytes # (Manual) Eosinophils # (Manual) Basophils # (Manual) PT INR Fibrinogen dRVVT Confirm Interp Factor V Activity POC ABG pH POC ABG pCO2 POC ABG pO2 70 L ABG pO2 ABG HCO3 ABG Base Excess ABG Hemoglobin Oxyhemoglobin Sodium Potassium Chloride Carbon Dioxide BUN Creatinine Glucose POC Glucose 118 H 154 H Lactic Acid Calcium Phosphorus Magnesium Direct Bilirubin AST ALT Alkaline Phosphatase Lactate Dehydrogenase Troponin T C-Reactive Protein Total Protein Albumin Prealbumin Triglycerides Cholesterol LDL Cholesterol Direct HDL Cholesterol PTH Intact Urine pH Urine WBC (Auto) Urine Creatinine Urine Total Protein Fluid Total Protein Vancomycin Trough Rheumatoid Factor Complement C4 Miscellaneous Test Crossmatch 01/21/17 01/21/17 01/21/17 04:00 04:56 11:46 WBC RBC Hgb Hct MCV MCH MCHC RDW Plt Count Lymph % (Auto) [place] % (Auto) Lymph # [place] # Baso # Seg Neutrophils % Seg Neuts % (Manual) Lymphocytes % (Manual) Monocytes % (Manual) Eosinophils % (Manual) Basophils % (Manual) Nucleated RBC % Seg Neutrophils # Seg Neutrophils # Man Lymphocytes # (Manual) Monocytes # (Manual) Eosinophils # (Manual) Basophils # (Manual) PT INR Fibrinogen dRVVT Confirm Interp Factor V Activity POC ABG pH POC ABG pCO2 POC ABG pO2 ABG pO2 ABG HCO3 ABG Base Excess ABG Hemoglobin Oxyhemoglobin Sodium Potassium 3.5 L Chloride 97.4 L Carbon Dioxide BUN 66 H Creatinine 1.4 H Glucose POC Glucose 116 H 106 H Lactic Acid Calcium Phosphorus 2.10 L Magnesium Direct Bilirubin AST ALT Alkaline Phosphatase Lactate Dehydrogenase Troponin T C-Reactive Protein Total Protein Albumin Prealbumin Triglycerides Cholesterol LDL Cholesterol Direct HDL Cholesterol PTH Intact Urine pH Urine WBC (Auto) Urine Creatinine Urine Total Protein Fluid Total Protein Vancomycin Trough Rheumatoid Factor Complement C4 Miscellaneous Test Crossmatch 01/21/17 01/21/17 01/22/17 17:25 23:49 05:35 WBC RBC Hgb Hct MCV MCH MCHC RDW Plt Count Lymph % (Auto) [place] % (Auto) Lymph # [place] # Baso # Seg Neutrophils % Seg Neuts % (Manual) Lymphocytes % (Manual) Monocytes % (Manual) Eosinophils % (Manual) Basophils % (Manual) Nucleated RBC % Seg Neutrophils # Seg Neutrophils # Man Lymphocytes # (Manual) Monocytes # (Manual) Eosinophils # (Manual) Basophils # (Manual) PT INR Fibrinogen dRVVT Confirm Interp Factor V Activity POC ABG pH POC ABG pCO2 POC ABG pO2 ABG pO2 ABG HCO3 ABG Base Excess ABG Hemoglobin Oxyhemoglobin Sodium Potassium Chloride Carbon Dioxide BUN Creatinine Glucose POC Glucose 106 H 133 H 107 H Lactic Acid Calcium Phosphorus Magnesium Direct Bilirubin AST ALT Alkaline Phosphatase Lactate Dehydrogenase Troponin T C-Reactive Protein Total Protein Albumin Prealbumin Triglycerides Cholesterol LDL Cholesterol Direct HDL Cholesterol PTH Intact Urine pH Urine WBC (Auto) Urine Creatinine Urine Total Protein Fluid Total Protein Vancomycin Trough Rheumatoid Factor Complement C4 Miscellaneous Test Crossmatch 01/22/17 01/22/17 01/22/17 07:20 07:20 11:31 WBC RBC 2.75 L Hgb 7.5 L Hct 22.7 L MCV MCH 27 L MCHC RDW 17.5 H Plt Count Lymph % (Auto) [place] % (Auto) Lymph # [place] # Baso # Seg Neutrophils % Seg Neuts % (Manual) Lymphocytes % (Manual) Monocytes % (Manual) Eosinophils % (Manual) Basophils % (Manual) Nucleated RBC % Seg Neutrophils # Seg Neutrophils # Man Lymphocytes # (Manual) Monocytes # (Manual) Eosinophils # (Manual) Basophils # (Manual) PT INR Fibrinogen dRVVT Confirm Interp Factor V Activity POC ABG pH POC ABG pCO2 POC ABG pO2 ABG pO2 ABG HCO3 ABG Base Excess ABG Hemoglobin Oxyhemoglobin Sodium Potassium 3.3 L Chloride Carbon Dioxide BUN 42 H Creatinine Glucose 105 H POC Glucose 124 H Lactic Acid Calcium Phosphorus 1.70 L Magnesium Direct Bilirubin AST ALT Alkaline Phosphatase Lactate Dehydrogenase Troponin T C-Reactive Protein Total Protein Albumin Prealbumin Triglycerides Cholesterol LDL Cholesterol Direct HDL Cholesterol PTH Intact Urine pH Urine WBC (Auto) Urine Creatinine Urine Total Protein Fluid Total Protein Vancomycin Trough Rheumatoid Factor Complement C4 Miscellaneous Test Crossmatch 01/22/17 01/22/17 01/23/17 17:16 23:35 05:35 WBC RBC Hgb Hct MCV MCH MCHC RDW Plt Count Lymph % (Auto) [place] % (Auto) Lymph # [place] # Baso # Seg Neutrophils % Seg Neuts % (Manual) Lymphocytes % (Manual) Monocytes % (Manual) Eosinophils % (Manual) Basophils % (Manual) Nucleated RBC % Seg Neutrophils # Seg Neutrophils # Man Lymphocytes # (Manual) Monocytes # (Manual) Eosinophils # (Manual) Basophils # (Manual) PT INR Fibrinogen dRVVT Confirm Interp Factor V Activity POC ABG pH POC ABG pCO2 POC ABG pO2 ABG pO2 ABG HCO3 ABG Base Excess ABG Hemoglobin Oxyhemoglobin Sodium Potassium Chloride Carbon Dioxide BUN Creatinine Glucose POC Glucose 135 H 120 H 111 H Lactic Acid Calcium Phosphorus Magnesium Direct Bilirubin AST ALT Alkaline Phosphatase Lactate Dehydrogenase Troponin T C-Reactive Protein Total Protein Albumin Prealbumin Triglycerides Cholesterol LDL Cholesterol Direct HDL Cholesterol PTH Intact Urine pH Urine WBC (Auto) Urine Creatinine Urine Total Protein Fluid Total Protein Vancomycin Trough Rheumatoid Factor Complement C4 Miscellaneous Test Crossmatch 01/23/17 01/23/17 01/23/17 06:10 17:27 23:44 WBC RBC Hgb Hct MCV MCH MCHC RDW Plt Count Lymph % (Auto) [place] % (Auto) Lymph # [place] # Baso # Seg Neutrophils % Seg Neuts % (Manual) Lymphocytes % (Manual) Monocytes % (Manual) Eosinophils % (Manual) Basophils % (Manual) Nucleated RBC % Seg Neutrophils # Seg Neutrophils # Man Lymphocytes # (Manual) Monocytes # (Manual) Eosinophils # (Manual) Basophils # (Manual) PT INR Fibrinogen dRVVT Confirm Interp Factor V Activity POC ABG pH POC ABG pCO2 POC ABG pO2 ABG pO2 ABG HCO3 ABG Base Excess ABG Hemoglobin Oxyhemoglobin Sodium Potassium 3.3 L Chloride Carbon Dioxide BUN 66 H Creatinine 1.3 H Glucose 109 H POC Glucose 120 H 115 H Lactic Acid Calcium Phosphorus 2.20 L D Magnesium Direct Bilirubin AST ALT Alkaline Phosphatase Lactate Dehydrogenase Troponin T C-Reactive Protein Total Protein Albumin Prealbumin Triglycerides Cholesterol LDL Cholesterol Direct HDL Cholesterol PTH Intact Urine pH Urine WBC (Auto) Urine Creatinine Urine Total Protein Fluid Total Protein Vancomycin Trough Rheumatoid Factor Complement C4 Miscellaneous Test Crossmatch 01/24/17 01/24/17 01/24/17 05:19 05:50 12:19 WBC RBC Hgb Hct MCV MCH MCHC RDW Plt Count Lymph % (Auto) [place] % (Auto) Lymph # [place] # Baso # Seg Neutrophils % Seg Neuts % (Manual) Lymphocytes % (Manual) Monocytes % (Manual) Eosinophils % (Manual) Basophils % (Manual) Nucleated RBC % Seg Neutrophils # Seg Neutrophils # Man Lymphocytes # (Manual) Monocytes # (Manual) Eosinophils # (Manual) Basophils # (Manual) PT INR Fibrinogen dRVVT Confirm Interp Factor V Activity POC ABG pH POC ABG pCO2 POC ABG pO2 ABG pO2 ABG HCO3 ABG Base Excess ABG Hemoglobin Oxyhemoglobin Sodium Potassium Chloride Carbon Dioxide BUN 47 H Creatinine Glucose 117 H POC Glucose 126 H 119 H Lactic Acid Calcium Phosphorus 2.30 L Magnesium 1.60 L Direct Bilirubin AST ALT Alkaline Phosphatase Lactate Dehydrogenase Troponin T C-Reactive Protein Total Protein Albumin Prealbumin Triglycerides Cholesterol LDL Cholesterol Direct HDL Cholesterol PTH Intact Urine pH Urine WBC (Auto) Urine Creatinine Urine Total Protein Fluid Total Protein Vancomycin Trough Rheumatoid Factor Complement C4 Miscellaneous Test Crossmatch 01/24/17 01/25/17 01/25/17 17:08 00:37 04:00 WBC RBC Hgb Hct MCV MCH MCHC RDW Plt Count Lymph % (Auto) [place] % (Auto) Lymph # [place] # Baso # Seg Neutrophils % Seg Neuts % (Manual) Lymphocytes % (Manual) Monocytes % (Manual) Eosinophils % (Manual) Basophils % (Manual) Nucleated RBC % Seg Neutrophils # Seg Neutrophils # Man Lymphocytes # (Manual) Monocytes # (Manual) Eosinophils # (Manual) Basophils # (Manual) PT INR Fibrinogen dRVVT Confirm Interp Factor V Activity POC ABG pH POC ABG pCO2 POC ABG pO2 ABG pO2 ABG HCO3 ABG Base Excess ABG Hemoglobin Oxyhemoglobin Sodium Potassium Chloride Carbon Dioxide BUN 72 H Creatinine 1.3 H Glucose POC Glucose 127 H 110 H Lactic Acid Calcium Phosphorus Magnesium Direct Bilirubin AST ALT Alkaline Phosphatase Lactate Dehydrogenase Troponin T C-Reactive Protein Total Protein Albumin Prealbumin Triglycerides Cholesterol LDL Cholesterol Direct HDL Cholesterol PTH Intact Urine pH Urine WBC (Auto) Urine Creatinine Urine Total Protein Fluid Total Protein Vancomycin Trough Rheumatoid Factor Complement C4 Miscellaneous Test Crossmatch 01/25/17 01/25/17 01/25/17 04:00 11:15 13:05 WBC RBC 2.49 L Hgb 6.7 L Hct 20.9 L MCV MCH 27 L MCHC RDW 18.8 H Plt Count Lymph % (Auto) [place] % (Auto) 10.1 H Lymph # [place] # 1.0 H Baso # Seg Neutrophils % Seg Neuts % (Manual) Lymphocytes % (Manual) Monocytes % (Manual) Eosinophils % (Manual) Basophils % (Manual) Nucleated RBC % Seg Neutrophils # Seg Neutrophils # Man Lymphocytes # (Manual) Monocytes # (Manual) Eosinophils # (Manual) Basophils # (Manual) PT INR Fibrinogen dRVVT Confirm Interp Factor V Activity POC ABG pH POC ABG pCO2 POC ABG pO2 ABG pO2 ABG HCO3 ABG Base Excess ABG Hemoglobin Oxyhemoglobin Sodium Potassium Chloride Carbon Dioxide BUN Creatinine Glucose POC Glucose 128 H Lactic Acid Calcium Phosphorus Magnesium Direct Bilirubin AST ALT Alkaline Phosphatase Lactate Dehydrogenase Troponin T C-Reactive Protein Total Protein Albumin Prealbumin Triglycerides Cholesterol LDL Cholesterol Direct HDL Cholesterol PTH Intact Urine pH Urine WBC (Auto) Urine Creatinine Urine Total Protein Fluid Total Protein Vancomycin Trough Rheumatoid Factor Complement C4 Miscellaneous Test Crossmatch See Detail 01/25/17 01/25/17 01/26/17 18:02 23:07 01:20 WBC RBC Hgb Hct MCV MCH MCHC RDW Plt Count Lymph % (Auto) [place] % (Auto) Lymph # [place] # Baso # Seg Neutrophils % Seg Neuts % (Manual) Lymphocytes % (Manual) Monocytes % (Manual) Eosinophils % (Manual) Basophils % (Manual) Nucleated RBC % Seg Neutrophils # Seg Neutrophils # Man Lymphocytes # (Manual) Monocytes # (Manual) Eosinophils # (Manual) Basophils # (Manual) PT INR Fibrinogen dRVVT Confirm Interp Factor V Activity POC ABG pH POC ABG pCO2 POC ABG pO2 ABG pO2 ABG HCO3 ABG Base Excess ABG Hemoglobin Oxyhemoglobin Sodium Potassium Chloride Carbon Dioxide BUN Creatinine Glucose POC Glucose 120 H 123 H 112 H Lactic Acid Calcium Phosphorus Magnesium Direct Bilirubin AST ALT Alkaline Phosphatase Lactate Dehydrogenase Troponin T C-Reactive Protein Total Protein Albumin Prealbumin Triglycerides Cholesterol LDL Cholesterol Direct HDL Cholesterol PTH Intact Urine pH Urine WBC (Auto) Urine Creatinine Urine Total Protein Fluid Total Protein Vancomycin Trough Rheumatoid Factor Complement C4 Miscellaneous Test Crossmatch 01/26/17 01/26/17 01/26/17 04:20 04:20 11:23 WBC 13.1 H RBC 3.28 L Hgb 9.0 L Hct 26.9 L D MCV MCH 27 L MCHC RDW 17.2 H Plt Count Lymph % (Auto) [place] % (Auto) 9.0 H Lymph # [place] # 1.2 H Baso # Seg Neutrophils % 73.1 H Seg Neuts % (Manual) Lymphocytes % (Manual) Monocytes % (Manual) Eosinophils % (Manual) Basophils % (Manual) Nucleated RBC % Seg Neutrophils # 9.6 H Seg Neutrophils # Man Lymphocytes # (Manual) Monocytes # (Manual) Eosinophils # (Manual) Basophils # (Manual) PT INR Fibrinogen dRVVT Confirm Interp Factor V Activity POC ABG pH POC ABG pCO2 POC ABG pO2 ABG pO2 ABG HCO3 ABG Base Excess ABG Hemoglobin Oxyhemoglobin Sodium Potassium Chloride Carbon Dioxide BUN 51 H Creatinine Glucose 117 H POC Glucose 125 H Lactic Acid Calcium Phosphorus Magnesium Direct Bilirubin AST ALT Alkaline Phosphatase Lactate Dehydrogenase Troponin T C-Reactive Protein Total Protein Albumin Prealbumin Triglycerides Cholesterol LDL Cholesterol Direct HDL Cholesterol PTH Intact Urine pH Urine WBC (Auto) Urine Creatinine Urine Total Protein Fluid Total Protein Vancomycin Trough Rheumatoid Factor Complement C4 Miscellaneous Test Crossmatch 01/26/17 01/27/17 01/27/17 17:11 00:30 04:00 WBC RBC Hgb Hct MCV MCH MCHC RDW Plt Count Lymph % (Auto) [place] % (Auto) Lymph # [place] # Baso # Seg Neutrophils % Seg Neuts % (Manual) Lymphocytes % (Manual) Monocytes % (Manual) Eosinophils % (Manual) Basophils % (Manual) Nucleated RBC % Seg Neutrophils # Seg Neutrophils # Man Lymphocytes # (Manual) Monocytes # (Manual) Eosinophils # (Manual) Basophils # (Manual) PT INR Fibrinogen dRVVT Confirm Interp Factor V Activity POC ABG pH POC ABG pCO2 POC ABG pO2 ABG pO2 ABG HCO3 ABG Base Excess ABG Hemoglobin Oxyhemoglobin Sodium Potassium Chloride 97.7 L Carbon Dioxide 21 L BUN 79 H Creatinine 1.7 H D Glucose 112 H POC Glucose 133 H 135 H Lactic Acid Calcium Phosphorus 5.00 H D Magnesium Direct Bilirubin AST ALT Alkaline Phosphatase Lactate Dehydrogenase Troponin T C-Reactive Protein Total Protein Albumin Prealbumin Triglycerides Cholesterol LDL Cholesterol Direct HDL Cholesterol PTH Intact Urine pH Urine WBC (Auto) Urine Creatinine Urine Total Protein Fluid Total Protein Vancomycin Trough Rheumatoid Factor Complement C4 Miscellaneous Test Crossmatch 01/27/17 01/27/17 01/27/17 05:12 12:18 17:25 WBC RBC Hgb Hct MCV MCH MCHC RDW Plt Count Lymph % (Auto) [place] % (Auto) Lymph # [place] # Baso # Seg Neutrophils % Seg Neuts % (Manual) Lymphocytes % (Manual) Monocytes % (Manual) Eosinophils % (Manual) Basophils % (Manual) Nucleated RBC % Seg Neutrophils # Seg Neutrophils # Man Lymphocytes # (Manual) Monocytes # (Manual) Eosinophils # (Manual) Basophils # (Manual) PT INR Fibrinogen dRVVT Confirm Interp Factor V Activity POC ABG pH POC ABG pCO2 POC ABG pO2 ABG pO2 ABG HCO3 ABG Base Excess ABG Hemoglobin Oxyhemoglobin Sodium Potassium Chloride Carbon Dioxide BUN Creatinine Glucose POC Glucose 116 H 153 H 152 H Lactic Acid Calcium Phosphorus Magnesium Direct Bilirubin AST ALT Alkaline Phosphatase Lactate Dehydrogenase Troponin T C-Reactive Protein Total Protein Albumin Prealbumin Triglycerides Cholesterol LDL Cholesterol Direct HDL Cholesterol PTH Intact Urine pH Urine WBC (Auto) Urine Creatinine Urine Total Protein Fluid Total Protein Vancomycin Trough Rheumatoid Factor Complement C4 Miscellaneous Test Crossmatch 01/27/17 01/28/17 01/28/17 23:42 04:00 04:00 WBC 14.4 H RBC 2.82 L Hgb 7.4 L Hct 23.5 L MCV MCH 26 L MCHC RDW 17.6 H Plt Count Lymph % (Auto) 10.2 L [place] % (Auto) 11.0 H Lymph # [place] # 1.6 H Baso # Seg Neutrophils % 78.0 H Seg Neuts % (Manual) Lymphocytes % (Manual) Monocytes % (Manual) Eosinophils % (Manual) Basophils % (Manual) Nucleated RBC % Seg Neutrophils # 11.3 H Seg Neutrophils # Man Lymphocytes # (Manual) Monocytes # (Manual) Eosinophils # (Manual) Basophils # (Manual) PT INR Fibrinogen dRVVT Confirm Interp Factor V Activity POC ABG pH POC ABG pCO2 POC ABG pO2 ABG pO2 ABG HCO3 ABG Base Excess ABG Hemoglobin Oxyhemoglobin Sodium Potassium Chloride Carbon Dioxide BUN 55 H Creatinine 1.3 H Glucose 114 H POC Glucose 121 H Lactic Acid Calcium Phosphorus Magnesium Direct Bilirubin AST ALT Alkaline Phosphatase Lactate Dehydrogenase Troponin T C-Reactive Protein Total Protein Albumin 1.4 L Prealbumin Triglycerides Cholesterol LDL Cholesterol Direct HDL Cholesterol PTH Intact Urine pH Urine WBC (Auto) Urine Creatinine Urine Total Protein Fluid Total Protein Vancomycin Trough Rheumatoid Factor Complement C4 Miscellaneous Test Crossmatch 01/28/17 01/28/17 01/29/17 04:59 12:30 00:02 WBC RBC Hgb Hct MCV MCH MCHC RDW Plt Count Lymph % (Auto) [place] % (Auto) Lymph # [place] # Baso # Seg Neutrophils % Seg Neuts % (Manual) Lymphocytes % (Manual) Monocytes % (Manual) Eosinophils % (Manual) Basophils % (Manual) Nucleated RBC % Seg Neutrophils # Seg Neutrophils # Man Lymphocytes # (Manual) Monocytes # (Manual) Eosinophils # (Manual) Basophils # (Manual) PT INR Fibrinogen dRVVT Confirm Interp Factor V Activity POC ABG pH POC ABG pCO2 POC ABG pO2 ABG pO2 ABG HCO3 ABG Base Excess ABG Hemoglobin Oxyhemoglobin Sodium Potassium Chloride Carbon Dioxide BUN Creatinine Glucose POC Glucose 126 H 119 H 138 H Lactic Acid Calcium Phosphorus Magnesium Direct Bilirubin AST ALT Alkaline Phosphatase Lactate Dehydrogenase Troponin T C-Reactive Protein Total Protein Albumin Prealbumin Triglycerides Cholesterol LDL Cholesterol Direct HDL Cholesterol PTH Intact Urine pH Urine WBC (Auto) Urine Creatinine Urine Total Protein Fluid Total Protein Vancomycin Trough Rheumatoid Factor Complement C4 Miscellaneous Test Crossmatch 01/29/17 01/29/17 01/29/17 04:58 06:15 11:35 WBC RBC Hgb Hct MCV MCH MCHC RDW Plt Count Lymph % (Auto) [place] % (Auto) Lymph # [place] # Baso # Seg Neutrophils % Seg Neuts % (Manual) Lymphocytes % (Manual) Monocytes % (Manual) Eosinophils % (Manual) Basophils % (Manual) Nucleated RBC % Seg Neutrophils # Seg Neutrophils # Man Lymphocytes # (Manual) Monocytes # (Manual) Eosinophils # (Manual) Basophils # (Manual) PT INR Fibrinogen dRVVT Confirm Interp Factor V Activity POC ABG pH POC ABG pCO2 POC ABG pO2 ABG pO2 ABG HCO3 ABG Base Excess ABG Hemoglobin Oxyhemoglobin Sodium Potassium Chloride Carbon Dioxide BUN 85 H Creatinine 1.7 H Glucose 105 H POC Glucose 114 H 110 H Lactic Acid Calcium Phosphorus Magnesium 2.40 H Direct Bilirubin AST ALT Alkaline Phosphatase Lactate Dehydrogenase Troponin T C-Reactive Protein Total Protein Albumin Prealbumin Triglycerides Cholesterol LDL Cholesterol Direct HDL Cholesterol PTH Intact Urine pH Urine WBC (Auto) Urine Creatinine Urine Total Protein Fluid Total Protein Vancomycin Trough Rheumatoid Factor Complement C4 Miscellaneous Test Crossmatch 01/29/17 01/29/17 01/30/17 18:24 23:41 05:12 WBC RBC Hgb Hct MCV MCH MCHC RDW Plt Count Lymph % (Auto) [place] % (Auto) Lymph # [place] # Baso # Seg Neutrophils % Seg Neuts % (Manual) Lymphocytes % (Manual) Monocytes % (Manual) Eosinophils % (Manual) Basophils % (Manual) Nucleated RBC % Seg Neutrophils # Seg Neutrophils # Man Lymphocytes # (Manual) Monocytes # (Manual) Eosinophils # (Manual) Basophils # (Manual) PT INR Fibrinogen dRVVT Confirm Interp Factor V Activity POC ABG pH POC ABG pCO2 POC ABG pO2 ABG pO2 ABG HCO3 ABG Base Excess ABG Hemoglobin Oxyhemoglobin Sodium Potassium Chloride Carbon Dioxide BUN Creatinine Glucose POC Glucose 109 H 134 H 109 H Lactic Acid Calcium Phosphorus Magnesium Direct Bilirubin AST ALT Alkaline Phosphatase Lactate Dehydrogenase Troponin T C-Reactive Protein Total Protein Albumin Prealbumin Triglycerides Cholesterol LDL Cholesterol Direct HDL Cholesterol PTH Intact Urine pH Urine WBC (Auto) Urine Creatinine Urine Total Protein Fluid Total Protein Vancomycin Trough Rheumatoid Factor Complement C4 Miscellaneous Test Crossmatch 01/30/17 01/30/17 01/30/17 11:26 17:43 23:39 WBC RBC Hgb Hct MCV MCH MCHC RDW Plt Count Lymph % (Auto) [place] % (Auto) Lymph # [place] # Baso # Seg Neutrophils % Seg Neuts % (Manual) Lymphocytes % (Manual) Monocytes % (Manual) Eosinophils % (Manual) Basophils % (Manual) Nucleated RBC % Seg Neutrophils # Seg Neutrophils # Man Lymphocytes # (Manual) Monocytes # (Manual) Eosinophils # (Manual) Basophils # (Manual) PT INR Fibrinogen dRVVT Confirm Interp Factor V Activity POC ABG pH POC ABG pCO2 POC ABG pO2 ABG pO2 ABG HCO3 ABG Base Excess ABG Hemoglobin Oxyhemoglobin Sodium Potassium Chloride Carbon Dioxide BUN Creatinine Glucose POC Glucose 135 H 143 H 122 H Lactic Acid Calcium Phosphorus Magnesium Direct Bilirubin AST ALT Alkaline Phosphatase Lactate Dehydrogenase Troponin T C-Reactive Protein Total Protein Albumin Prealbumin Triglycerides Cholesterol LDL Cholesterol Direct HDL Cholesterol PTH Intact Urine pH Urine WBC (Auto) Urine Creatinine Urine Total Protein Fluid Total Protein Vancomycin Trough Rheumatoid Factor Complement C4 Miscellaneous Test Crossmatch 01/31/17 01/31/17 01/31/17 04:00 05:40 11:12 WBC RBC Hgb Hct MCV MCH MCHC RDW Plt Count Lymph % (Auto) [place] % (Auto) Lymph # [place] # Baso # Seg Neutrophils % Seg Neuts % (Manual) Lymphocytes % (Manual) Monocytes % (Manual) Eosinophils % (Manual) Basophils % (Manual) Nucleated RBC % Seg Neutrophils # Seg Neutrophils # Man Lymphocytes # (Manual) Monocytes # (Manual) Eosinophils # (Manual) Basophils # (Manual) PT INR Fibrinogen dRVVT Confirm Interp Factor V Activity POC ABG pH POC ABG pCO2 POC ABG pO2 ABG pO2 ABG HCO3 ABG Base Excess ABG Hemoglobin Oxyhemoglobin Sodium Potassium Chloride Carbon Dioxide BUN 78 H Creatinine 1.5 H Glucose 108 H POC Glucose 123 H Lactic Acid Calcium Phosphorus Magnesium Direct Bilirubin AST ALT Alkaline Phosphatase Lactate Dehydrogenase Troponin T C-Reactive Protein 8.10 H Total Protein Albumin Prealbumin Triglycerides Cholesterol LDL Cholesterol Direct HDL Cholesterol PTH Intact Urine pH Urine WBC (Auto) Urine Creatinine Urine Total Protein Fluid Total Protein Vancomycin Trough Rheumatoid Factor Complement C4 Miscellaneous Test Crossmatch 01/31/17 01/31/17 01/31/17 11:16 17:45 17:50 WBC RBC Hgb Hct MCV MCH MCHC RDW Plt Count Lymph % (Auto) [place] % (Auto) Lymph # [place] # Baso # Seg Neutrophils % Seg Neuts % (Manual) Lymphocytes % (Manual) Monocytes % (Manual) Eosinophils % (Manual) Basophils % (Manual) Nucleated RBC % Seg Neutrophils # Seg Neutrophils # Man Lymphocytes # (Manual) Monocytes # (Manual) Eosinophils # (Manual) Basophils # (Manual) PT INR Fibrinogen dRVVT Confirm Interp Factor V Activity POC ABG pH POC ABG pCO2 POC ABG pO2 ABG pO2 ABG HCO3 ABG Base Excess ABG Hemoglobin Oxyhemoglobin Sodium Potassium Chloride Carbon Dioxide BUN Creatinine Glucose POC Glucose 119 H 111 H Lactic Acid Calcium Phosphorus Magnesium Direct Bilirubin AST ALT Alkaline Phosphatase Lactate Dehydrogenase Troponin T C-Reactive Protein Total Protein Albumin Prealbumin Triglycerides Cholesterol LDL Cholesterol Direct HDL Cholesterol PTH Intact 6.76 L Urine pH Urine WBC (Auto) Urine Creatinine Urine Total Protein Fluid Total Protein Vancomycin Trough Rheumatoid Factor Complement C4 Miscellaneous Test Crossmatch 01/31/17 02/01/17 02/01/17 23:19 05:42 09:24 WBC RBC Hgb Hct MCV MCH MCHC RDW Plt Count Lymph % (Auto) [place] % (Auto) Lymph # [place] # Baso # Seg Neutrophils % Seg Neuts % (Manual) Lymphocytes % (Manual) Monocytes % (Manual) Eosinophils % (Manual) Basophils % (Manual) Nucleated RBC % Seg Neutrophils # Seg Neutrophils # Man Lymphocytes # (Manual) Monocytes # (Manual) Eosinophils # (Manual) Basophils # (Manual) PT INR Fibrinogen dRVVT Confirm Interp Factor V Activity POC ABG pH POC ABG pCO2 POC ABG pO2 ABG pO2 ABG HCO3 ABG Base Excess ABG Hemoglobin Oxyhemoglobin Sodium Potassium Chloride Carbon Dioxide BUN Creatinine Glucose POC Glucose 118 H 122 H Lactic Acid Calcium Phosphorus Magnesium 2.60 H Direct Bilirubin AST ALT Alkaline Phosphatase Lactate Dehydrogenase Troponin T C-Reactive Protein Total Protein Albumin Prealbumin Triglycerides Cholesterol LDL Cholesterol Direct HDL Cholesterol PTH Intact Urine pH Urine WBC (Auto) Urine Creatinine Urine Total Protein Fluid Total Protein Vancomycin Trough Rheumatoid Factor Complement C4 Miscellaneous Test Crossmatch 02/01/17 02/01/17 02/02/17 09:24 12:15 07:40 WBC RBC Hgb Hct MCV MCH MCHC RDW Plt Count Lymph % (Auto) [place] % (Auto) Lymph # [place] # Baso # Seg Neutrophils % Seg Neuts % (Manual) Lymphocytes % (Manual) Monocytes % (Manual) Eosinophils % (Manual) Basophils % (Manual) Nucleated RBC % Seg Neutrophils # Seg Neutrophils # Man Lymphocytes # (Manual) Monocytes # (Manual) Eosinophils # (Manual) Basophils # (Manual) PT INR Fibrinogen dRVVT Confirm Interp Factor V Activity POC ABG pH POC ABG pCO2 POC ABG pO2 ABG pO2 ABG HCO3 ABG Base Excess ABG Hemoglobin Oxyhemoglobin Sodium Potassium Chloride Carbon Dioxide BUN 102 H 72 H Creatinine 1.9 H 1.5 H Glucose 120 H POC Glucose 156 H Lactic Acid Calcium Phosphorus Magnesium Direct Bilirubin AST ALT Alkaline Phosphatase Lactate Dehydrogenase Troponin T C-Reactive Protein Total Protein Albumin Prealbumin Triglycerides Cholesterol LDL Cholesterol Direct HDL Cholesterol PTH Intact Urine pH Urine WBC (Auto) Urine Creatinine Urine Total Protein Fluid Total Protein Vancomycin Trough Rheumatoid Factor Complement C4 Miscellaneous Test Crossmatch 02/02/17 02/02/17 02/03/17 10:16 12:11 00:08 WBC 12.0 H RBC 3.08 L Hgb 8.3 L Hct 25.6 L MCV MCH 27 L MCHC RDW 18.2 H Plt Count Lymph % (Auto) [place] % (Auto) Lymph # [place] # Baso # Seg Neutrophils % 78.4 H Seg Neuts % (Manual) Lymphocytes % (Manual) Monocytes % (Manual) Eosinophils % (Manual) Basophils % (Manual) Nucleated RBC % Seg Neutrophils # 9.4 H Seg Neutrophils # Man Lymphocytes # (Manual) Monocytes # (Manual) Eosinophils # (Manual) Basophils # (Manual) PT INR Fibrinogen dRVVT Confirm Interp Factor V Activity POC ABG pH POC ABG pCO2 POC ABG pO2 ABG pO2 ABG HCO3 ABG Base Excess ABG Hemoglobin Oxyhemoglobin Sodium Potassium Chloride Carbon Dioxide BUN Creatinine Glucose POC Glucose 110 H 120 H Lactic Acid Calcium Phosphorus Magnesium Direct Bilirubin AST ALT Alkaline Phosphatase Lactate Dehydrogenase Troponin T C-Reactive Protein Total Protein Albumin Prealbumin Triglycerides Cholesterol LDL Cholesterol Direct HDL Cholesterol PTH Intact Urine pH Urine WBC (Auto) Urine Creatinine Urine Total Protein Fluid Total Protein Vancomycin Trough Rheumatoid Factor Complement C4 Miscellaneous Test Crossmatch 02/03/17 02/03/17 02/03/17 05:41 07:38 11:31 WBC RBC Hgb Hct MCV MCH MCHC RDW Plt Count Lymph % (Auto) [place] % (Auto) Lymph # [place] # Baso # Seg Neutrophils % Seg Neuts % (Manual) Lymphocytes % (Manual) Monocytes % (Manual) Eosinophils % (Manual) Basophils % (Manual) Nucleated RBC % Seg Neutrophils # Seg Neutrophils # Man Lymphocytes # (Manual) Monocytes # (Manual) Eosinophils # (Manual) Basophils # (Manual) PT INR Fibrinogen dRVVT Confirm Interp Factor V Activity POC ABG pH POC ABG pCO2 POC ABG pO2 ABG pO2 ABG HCO3 ABG Base Excess ABG Hemoglobin Oxyhemoglobin Sodium 134 L Potassium Chloride Carbon Dioxide 21 L BUN 91 H Creatinine 1.9 H Glucose 110 H POC Glucose 119 H 119 H Lactic Acid Calcium 10.3 H Phosphorus Magnesium Direct Bilirubin AST ALT Alkaline Phosphatase Lactate Dehydrogenase Troponin T C-Reactive Protein Total Protein Albumin Prealbumin Triglycerides Cholesterol LDL Cholesterol Direct HDL Cholesterol PTH Intact Urine pH Urine WBC (Auto) Urine Creatinine Urine Total Protein Fluid Total Protein Vancomycin Trough Rheumatoid Factor Complement C4 Miscellaneous Test Crossmatch 02/03/17 02/04/17 02/04/17 17:13 04:00 05:18 WBC RBC Hgb Hct MCV MCH MCHC RDW Plt Count Lymph % (Auto) [place] % (Auto) Lymph # [place] # Baso # Seg Neutrophils % Seg Neuts % (Manual) Lymphocytes % (Manual) Monocytes % (Manual) Eosinophils % (Manual) Basophils % (Manual) Nucleated RBC % Seg Neutrophils # Seg Neutrophils # Man Lymphocytes # (Manual) Monocytes # (Manual) Eosinophils # (Manual) Basophils # (Manual) PT INR Fibrinogen dRVVT Confirm Interp Factor V Activity POC ABG pH POC ABG pCO2 POC ABG pO2 ABG pO2 ABG HCO3 ABG Base Excess ABG Hemoglobin Oxyhemoglobin Sodium 136 L Potassium Chloride Carbon Dioxide BUN 58 H Creatinine 1.3 H Glucose 103 H POC Glucose 133 H 132 H Lactic Acid Calcium Phosphorus 2.00 L D Magnesium 1.60 L Direct Bilirubin AST ALT Alkaline Phosphatase Lactate Dehydrogenase Troponin T C-Reactive Protein Total Protein Albumin Prealbumin Triglycerides Cholesterol LDL Cholesterol Direct HDL Cholesterol PTH Intact Urine pH Urine WBC (Auto) Urine Creatinine Urine Total Protein Fluid Total Protein Vancomycin Trough Rheumatoid Factor Complement C4 Miscellaneous Test Crossmatch 02/05/17 02/05/17 02/05/17 00:01 04:00 06:42 WBC RBC Hgb Hct MCV MCH MCHC RDW Plt Count Lymph % (Auto) [place] % (Auto) Lymph # [place] # Baso # Seg Neutrophils % Seg Neuts % (Manual) Lymphocytes % (Manual) Monocytes % (Manual) Eosinophils % (Manual) Basophils % (Manual) Nucleated RBC % Seg Neutrophils # Seg Neutrophils # Man Lymphocytes # (Manual) Monocytes # (Manual) Eosinophils # (Manual) Basophils # (Manual) PT INR Fibrinogen dRVVT Confirm Interp Factor V Activity POC ABG pH POC ABG pCO2 POC ABG pO2 ABG pO2 ABG HCO3 ABG Base Excess ABG Hemoglobin Oxyhemoglobin Sodium Potassium Chloride Carbon Dioxide BUN 83 H Creatinine 1.8 H Glucose POC Glucose 119 H 110 H Lactic Acid Calcium 10.7 H Phosphorus Magnesium Direct Bilirubin AST ALT Alkaline Phosphatase Lactate Dehydrogenase Troponin T C-Reactive Protein Total Protein Albumin Prealbumin Triglycerides Cholesterol LDL Cholesterol Direct HDL Cholesterol PTH Intact Urine pH Urine WBC (Auto) Urine Creatinine Urine Total Protein Fluid Total Protein Vancomycin Trough Rheumatoid Factor Complement C4 Miscellaneous Test Crossmatch 02/05/17 02/05/17 02/05/17 09:59 11:47 23:44 WBC RBC 2.69 L Hgb 7.2 L Hct 22.5 L MCV MCH 27 L MCHC RDW 18.6 H Plt Count Lymph % (Auto) [place] % (Auto) 9.2 H Lymph # [place] # 0.9 H Baso # Seg Neutrophils % Seg Neuts % (Manual) Lymphocytes % (Manual) Monocytes % (Manual) Eosinophils % (Manual) Basophils % (Manual) Nucleated RBC % Seg Neutrophils # Seg Neutrophils # Man Lymphocytes # (Manual) Monocytes # (Manual) Eosinophils # (Manual) Basophils # (Manual) PT INR Fibrinogen dRVVT Confirm Interp Factor V Activity POC ABG pH POC ABG pCO2 POC ABG pO2 ABG pO2 ABG HCO3 ABG Base Excess ABG Hemoglobin Oxyhemoglobin Sodium Potassium Chloride Carbon Dioxide BUN Creatinine Glucose POC Glucose 130 H 123 H Lactic Acid Calcium Phosphorus Magnesium Direct Bilirubin AST ALT Alkaline Phosphatase Lactate Dehydrogenase Troponin T C-Reactive Protein Total Protein Albumin Prealbumin Triglycerides Cholesterol LDL Cholesterol Direct HDL Cholesterol PTH Intact Urine pH Urine WBC (Auto) Urine Creatinine Urine Total Protein Fluid Total Protein Vancomycin Trough Rheumatoid Factor Complement C4 Miscellaneous Test Crossmatch 02/06/17 02/06/17 02/06/17 04:45 05:58 12:01 WBC RBC Hgb Hct MCV MCH MCHC RDW Plt Count Lymph % (Auto) [place] % (Auto) Lymph # [place] # Baso # Seg Neutrophils % Seg Neuts % (Manual) Lymphocytes % (Manual) Monocytes % (Manual) Eosinophils % (Manual) Basophils % (Manual) Nucleated RBC % Seg Neutrophils # Seg Neutrophils # Man Lymphocytes # (Manual) Monocytes # (Manual) Eosinophils # (Manual) Basophils # (Manual) PT INR Fibrinogen dRVVT Confirm Interp Factor V Activity POC ABG pH POC ABG pCO2 POC ABG pO2 ABG pO2 ABG HCO3 ABG Base Excess ABG Hemoglobin Oxyhemoglobin Sodium Potassium Chloride Carbon Dioxide BUN 101 H Creatinine 2.0 H Glucose 102 H POC Glucose 115 H 132 H Lactic Acid Calcium 10.6 H Phosphorus Magnesium Direct Bilirubin AST ALT Alkaline Phosphatase 199 H Lactate Dehydrogenase Troponin T C-Reactive Protein Total Protein Albumin 1.4 L Prealbumin Triglycerides Cholesterol LDL Cholesterol Direct HDL Cholesterol PTH Intact Urine pH Urine WBC (Auto) Urine Creatinine Urine Total Protein Fluid Total Protein Vancomycin Trough Rheumatoid Factor Complement C4 Miscellaneous Test Crossmatch 02/06/17 02/06/17 02/07/17 17:41 23:32 05:04 WBC RBC Hgb Hct MCV MCH MCHC RDW Plt Count Lymph % (Auto) [place] % (Auto) Lymph # [place] # Baso # Seg Neutrophils % Seg Neuts % (Manual) Lymphocytes % (Manual) Monocytes % (Manual) Eosinophils % (Manual) Basophils % (Manual) Nucleated RBC % Seg Neutrophils # Seg Neutrophils # Man Lymphocytes # (Manual) Monocytes # (Manual) Eosinophils # (Manual) Basophils # (Manual) PT INR Fibrinogen dRVVT Confirm Interp Factor V Activity POC ABG pH POC ABG pCO2 POC ABG pO2 ABG pO2 ABG HCO3 ABG Base Excess ABG Hemoglobin Oxyhemoglobin Sodium Potassium Chloride Carbon Dioxide BUN Creatinine Glucose POC Glucose 134 H 128 H 119 H Lactic Acid Calcium Phosphorus Magnesium Direct Bilirubin AST ALT Alkaline Phosphatase Lactate Dehydrogenase Troponin T C-Reactive Protein Total Protein Albumin Prealbumin Triglycerides Cholesterol LDL Cholesterol Direct HDL Cholesterol PTH Intact Urine pH Urine WBC (Auto) Urine Creatinine Urine Total Protein Fluid Total Protein Vancomycin Trough Rheumatoid Factor Complement C4 Miscellaneous Test Crossmatch 02/07/17 02/07/17 02/07/17 06:30 11:20 17:13 WBC RBC Hgb Hct MCV MCH MCHC RDW Plt Count Lymph % (Auto) [place] % (Auto) Lymph # [place] # Baso # Seg Neutrophils % Seg Neuts % (Manual) Lymphocytes % (Manual) Monocytes % (Manual) Eosinophils % (Manual) Basophils % (Manual) Nucleated RBC % Seg Neutrophils # Seg Neutrophils # Man Lymphocytes # (Manual) Monocytes # (Manual) Eosinophils # (Manual) Basophils # (Manual) PT INR Fibrinogen dRVVT Confirm Interp Factor V Activity POC ABG pH POC ABG pCO2 POC ABG pO2 ABG pO2 ABG HCO3 ABG Base Excess ABG Hemoglobin Oxyhemoglobin Sodium Potassium 3.4 L Chloride Carbon Dioxide BUN 69 H Creatinine 1.5 H Glucose 105 H POC Glucose 117 H 110 H Lactic Acid Calcium Phosphorus Magnesium 1.50 L Direct Bilirubin AST ALT Alkaline Phosphatase Lactate Dehydrogenase Troponin T C-Reactive Protein Total Protein Albumin Prealbumin Triglycerides Cholesterol LDL Cholesterol Direct HDL Cholesterol PTH Intact Urine pH Urine WBC (Auto) Urine Creatinine Urine Total Protein Fluid Total Protein Vancomycin Trough Rheumatoid Factor Complement C4 Miscellaneous Test Crossmatch 02/07/17 02/08/17 02/08/17 20:47 04:00 11:43 WBC RBC Hgb Hct MCV MCH MCHC RDW Plt Count Lymph % (Auto) [place] % (Auto) Lymph # [place] # Baso # Seg Neutrophils % Seg Neuts % (Manual) Lymphocytes % (Manual) Monocytes % (Manual) Eosinophils % (Manual) Basophils % (Manual) Nucleated RBC % Seg Neutrophils # Seg Neutrophils # Man Lymphocytes # (Manual) Monocytes # (Manual) Eosinophils # (Manual) Basophils # (Manual) PT INR Fibrinogen dRVVT Confirm Interp Factor V Activity POC ABG pH POC ABG pCO2 POC ABG pO2 ABG pO2 ABG HCO3 ABG Base Excess ABG Hemoglobin Oxyhemoglobin Sodium Potassium Chloride Carbon Dioxide BUN 86 H Creatinine 1.7 H Glucose POC Glucose 115 H 122 H Lactic Acid Calcium Phosphorus Magnesium 1.60 L Direct Bilirubin AST ALT Alkaline Phosphatase Lactate Dehydrogenase Troponin T C-Reactive Protein Total Protein Albumin Prealbumin Triglycerides Cholesterol LDL Cholesterol Direct HDL Cholesterol PTH Intact Urine pH Urine WBC (Auto) Urine Creatinine Urine Total Protein Fluid Total Protein Vancomycin Trough Rheumatoid Factor Complement C4 Miscellaneous Test Crossmatch 02/08/17 02/09/17 02/09/17 17:36 05:44 11:30 WBC RBC Hgb Hct MCV MCH MCHC RDW Plt Count Lymph % (Auto) [place] % (Auto) Lymph # [place] # Baso # Seg Neutrophils % Seg Neuts % (Manual) Lymphocytes % (Manual) Monocytes % (Manual) Eosinophils % (Manual) Basophils % (Manual) Nucleated RBC % Seg Neutrophils # Seg Neutrophils # Man Lymphocytes # (Manual) Monocytes # (Manual) Eosinophils # (Manual) Basophils # (Manual) PT INR Fibrinogen dRVVT Confirm Interp Factor V Activity POC ABG pH POC ABG pCO2 POC ABG pO2 ABG pO2 ABG HCO3 ABG Base Excess ABG Hemoglobin Oxyhemoglobin Sodium Potassium Chloride Carbon Dioxide BUN Creatinine Glucose POC Glucose 125 H 117 H 120 H Lactic Acid Calcium Phosphorus Magnesium Direct Bilirubin AST ALT Alkaline Phosphatase Lactate Dehydrogenase Troponin T C-Reactive Protein Total Protein Albumin Prealbumin Triglycerides Cholesterol LDL Cholesterol Direct HDL Cholesterol PTH Intact Urine pH Urine WBC (Auto) Urine Creatinine Urine Total Protein Fluid Total Protein Vancomycin Trough Rheumatoid Factor Complement C4 Miscellaneous Test Crossmatch 02/09/17 02/10/17 02/10/17 23:45 05:45 05:50 WBC RBC Hgb Hct MCV MCH MCHC RDW Plt Count Lymph % (Auto) [place] % (Auto) Lymph # [place] # Baso # Seg Neutrophils % Seg Neuts % (Manual) Lymphocytes % (Manual) Monocytes % (Manual) Eosinophils % (Manual) Basophils % (Manual) Nucleated RBC % Seg Neutrophils # Seg Neutrophils # Man Lymphocytes # (Manual) Monocytes # (Manual) Eosinophils # (Manual) Basophils # (Manual) PT INR Fibrinogen dRVVT Confirm Interp Factor V Activity POC ABG pH POC ABG pCO2 POC ABG pO2 ABG pO2 ABG HCO3 ABG Base Excess ABG Hemoglobin Oxyhemoglobin Sodium Potassium Chloride Carbon Dioxide BUN 85 H Creatinine 1.8 H Glucose 109 H POC Glucose 114 H 189 H Lactic Acid Calcium Phosphorus Magnesium 2.50 H Direct Bilirubin AST ALT Alkaline Phosphatase Lactate Dehydrogenase Troponin T C-Reactive Protein Total Protein Albumin Prealbumin Triglycerides Cholesterol LDL Cholesterol Direct HDL Cholesterol PTH Intact Urine pH Urine WBC (Auto) Urine Creatinine Urine Total Protein Fluid Total Protein Vancomycin Trough Rheumatoid Factor Complement C4 Miscellaneous Test Crossmatch 02/10/17 02/10/17 02/10/17 05:51 11:55 17:42 WBC RBC Hgb Hct MCV MCH MCHC RDW Plt Count Lymph % (Auto) [place] % (Auto) Lymph # [place] # Baso # Seg Neutrophils % Seg Neuts % (Manual) Lymphocytes % (Manual) Monocytes % (Manual) Eosinophils % (Manual) Basophils % (Manual) Nucleated RBC % Seg Neutrophils # Seg Neutrophils # Man Lymphocytes # (Manual) Monocytes # (Manual) Eosinophils # (Manual) Basophils # (Manual) PT INR Fibrinogen dRVVT Confirm Interp Factor V Activity POC ABG pH POC ABG pCO2 POC ABG pO2 ABG pO2 ABG HCO3 ABG Base Excess ABG Hemoglobin Oxyhemoglobin Sodium Potassium Chloride Carbon Dioxide BUN Creatinine Glucose POC Glucose 106 H 146 H 132 H Lactic Acid Calcium Phosphorus Magnesium Direct Bilirubin AST ALT Alkaline Phosphatase Lactate Dehydrogenase Troponin T C-Reactive Protein Total Protein Albumin Prealbumin Triglycerides Cholesterol LDL Cholesterol Direct HDL Cholesterol PTH Intact Urine pH Urine WBC (Auto) Urine Creatinine Urine Total Protein Fluid Total Protein Vancomycin Trough Rheumatoid Factor Complement C4 Miscellaneous Test Crossmatch 02/10/17 02/11/17 02/11/17 23:43 04:08 05:34 WBC RBC Hgb Hct MCV MCH MCHC RDW Plt Count Lymph % (Auto) [place] % (Auto) Lymph # [place] # Baso # Seg Neutrophils % Seg Neuts % (Manual) Lymphocytes % (Manual) Monocytes % (Manual) Eosinophils % (Manual) Basophils % (Manual) Nucleated RBC % Seg Neutrophils # Seg Neutrophils # Man Lymphocytes # (Manual) Monocytes # (Manual) Eosinophils # (Manual) Basophils # (Manual) PT INR Fibrinogen dRVVT Confirm Interp Factor V Activity POC ABG pH POC ABG pCO2 POC ABG pO2 ABG pO2 ABG HCO3 ABG Base Excess ABG Hemoglobin Oxyhemoglobin Sodium 136 L Potassium Chloride Carbon Dioxide BUN 65 H Creatinine 1.7 H Glucose 105 H POC Glucose 130 H 113 H Lactic Acid Calcium Phosphorus Magnesium Direct Bilirubin AST ALT Alkaline Phosphatase Lactate Dehydrogenase Troponin T C-Reactive Protein Total Protein Albumin Prealbumin Triglycerides Cholesterol LDL Cholesterol Direct HDL Cholesterol PTH Intact Urine pH Urine WBC (Auto) Urine Creatinine Urine Total Protein Fluid Total Protein Vancomycin Trough Rheumatoid Factor Complement C4 Miscellaneous Test Crossmatch 02/11/17 02/11/17 02/12/17 11:56 23:18 06:19 WBC RBC Hgb Hct MCV MCH MCHC RDW Plt Count Lymph % (Auto) [place] % (Auto) Lymph # [place] # Baso # Seg Neutrophils % Seg Neuts % (Manual) Lymphocytes % (Manual) Monocytes % (Manual) Eosinophils % (Manual) Basophils % (Manual) Nucleated RBC % Seg Neutrophils # Seg Neutrophils # Man Lymphocytes # (Manual) Monocytes # (Manual) Eosinophils # (Manual) Basophils # (Manual) PT INR Fibrinogen dRVVT Confirm Interp Factor V Activity POC ABG pH POC ABG pCO2 POC ABG pO2 ABG pO2 ABG HCO3 ABG Base Excess ABG Hemoglobin Oxyhemoglobin Sodium 136 L Potassium Chloride 97.1 L Carbon Dioxide BUN 93 H Creatinine 2.4 H Glucose POC Glucose 126 H 119 H Lactic Acid Calcium 11.0 H Phosphorus Magnesium Direct Bilirubin AST ALT Alkaline Phosphatase Lactate Dehydrogenase Troponin T C-Reactive Protein Total Protein Albumin Prealbumin Triglycerides Cholesterol LDL Cholesterol Direct HDL Cholesterol PTH Intact Urine pH Urine WBC (Auto) Urine Creatinine Urine Total Protein Fluid Total Protein Vancomycin Trough Rheumatoid Factor Complement C4 Miscellaneous Test Crossmatch 02/12/17 02/12/17 02/12/17 08:00 10:25 11:42 WBC 15.4 H RBC 2.63 L Hgb 6.9 L Hct 22.6 L MCV MCH 26 L MCHC RDW 20.5 H Plt Count Lymph % (Auto) [place] % (Auto) Lymph # [place] # Baso # Seg Neutrophils % Seg Neuts % (Manual) Lymphocytes % (Manual) Monocytes % (Manual) Eosinophils % (Manual) Basophils % (Manual) Nucleated RBC % Seg Neutrophils # Seg Neutrophils # Man Lymphocytes # (Manual) Monocytes # (Manual) Eosinophils # (Manual) Basophils # (Manual) PT INR Fibrinogen dRVVT Confirm Interp Factor V Activity POC ABG pH POC ABG pCO2 POC ABG pO2 ABG pO2 ABG HCO3 ABG Base Excess ABG Hemoglobin Oxyhemoglobin Sodium Potassium Chloride Carbon Dioxide BUN Creatinine Glucose POC Glucose 142 H Lactic Acid Calcium Phosphorus Magnesium Direct Bilirubin AST ALT Alkaline Phosphatase Lactate Dehydrogenase Troponin T C-Reactive Protein Total Protein Albumin Prealbumin Triglycerides Cholesterol LDL Cholesterol Direct HDL Cholesterol PTH Intact Urine pH Urine WBC (Auto) Urine Creatinine Urine Total Protein Fluid Total Protein Vancomycin Trough Rheumatoid Factor Complement C4 Miscellaneous Test Crossmatch See Detail 02/12/17 02/13/17 02/13/17 18:04 00:04 05:00 WBC RBC Hgb Hct MCV MCH MCHC RDW Plt Count Lymph % (Auto) [place] % (Auto) Lymph # [place] # Baso # Seg Neutrophils % Seg Neuts % (Manual) Lymphocytes % (Manual) Monocytes % (Manual) Eosinophils % (Manual) Basophils % (Manual) Nucleated RBC % Seg Neutrophils # Seg Neutrophils # Man Lymphocytes # (Manual) Monocytes # (Manual) Eosinophils # (Manual) Basophils # (Manual) PT INR Fibrinogen dRVVT Confirm Interp Factor V Activity POC ABG pH POC ABG pCO2 POC ABG pO2 ABG pO2 ABG HCO3 ABG Base Excess ABG Hemoglobin Oxyhemoglobin Sodium 134 L Potassium Chloride 96.1 L Carbon Dioxide 20 L BUN 125 H Creatinine 3.0 H Glucose 111 H POC Glucose 135 H 109 H Lactic Acid Calcium 11.3 H Phosphorus Magnesium Direct Bilirubin AST ALT Alkaline Phosphatase Lactate Dehydrogenase Troponin T C-Reactive Protein Total Protein Albumin Prealbumin Triglycerides Cholesterol LDL Cholesterol Direct HDL Cholesterol PTH Intact Urine pH Urine WBC (Auto) Urine Creatinine Urine Total Protein Fluid Total Protein Vancomycin Trough Rheumatoid Factor Complement C4 Miscellaneous Test Crossmatch 02/13/17 02/13/17 02/13/17 05:00 05:28 12:03 WBC 11.9 H RBC 2.92 L Hgb 7.8 L Hct 25.2 L MCV MCH 27 L MCHC RDW 19.3 H Plt Count Lymph % (Auto) [place] % (Auto) Lymph # [place] # Baso # Seg Neutrophils % Seg Neuts % (Manual) Lymphocytes % (Manual) Monocytes % (Manual) Eosinophils % (Manual) Basophils % (Manual) Nucleated RBC % Seg Neutrophils # Seg Neutrophils # Man Lymphocytes # (Manual) Monocytes # (Manual) Eosinophils # (Manual) Basophils # (Manual) PT INR Fibrinogen dRVVT Confirm Interp Factor V Activity POC ABG pH POC ABG pCO2 POC ABG pO2 ABG pO2 ABG HCO3 ABG Base Excess ABG Hemoglobin Oxyhemoglobin Sodium Potassium Chloride Carbon Dioxide BUN Creatinine Glucose POC Glucose 124 H 160 H Lactic Acid Calcium Phosphorus Magnesium Direct Bilirubin AST ALT Alkaline Phosphatase Lactate Dehydrogenase Troponin T C-Reactive Protein Total Protein Albumin Prealbumin Triglycerides Cholesterol LDL Cholesterol Direct HDL Cholesterol PTH Intact Urine pH Urine WBC (Auto) Urine Creatinine Urine Total Protein Fluid Total Protein Vancomycin Trough Rheumatoid Factor Complement C4 Miscellaneous Test Crossmatch 02/13/17 02/14/17 02/14/17 18:09 06:16 08:08 WBC 15.2 H RBC 2.97 L Hgb 8.1 L Hct 26.3 L MCV MCH MCHC RDW 19.3 H Plt Count Lymph % (Auto) [place] % (Auto) Lymph # [place] # Baso # Seg Neutrophils % Seg Neuts % (Manual) Lymphocytes % (Manual) Monocytes % (Manual) Eosinophils % (Manual) Basophils % (Manual) Nucleated RBC % Seg Neutrophils # Seg Neutrophils # Man Lymphocytes # (Manual) Monocytes # (Manual) Eosinophils # (Manual) Basophils # (Manual) PT INR Fibrinogen dRVVT Confirm Interp Factor V Activity POC ABG pH POC ABG pCO2 POC ABG pO2 ABG pO2 ABG HCO3 ABG Base Excess ABG Hemoglobin Oxyhemoglobin Sodium Potassium Chloride Carbon Dioxide BUN Creatinine Glucose POC Glucose 110 H 112 H Lactic Acid Calcium Phosphorus Magnesium Direct Bilirubin AST ALT Alkaline Phosphatase Lactate Dehydrogenase Troponin T C-Reactive Protein Total Protein Albumin Prealbumin Triglycerides Cholesterol LDL Cholesterol Direct HDL Cholesterol PTH Intact Urine pH Urine WBC (Auto) Urine Creatinine Urine Total Protein Fluid Total Protein Vancomycin Trough Rheumatoid Factor Complement C4 Miscellaneous Test Crossmatch 02/14/17 02/14/17 02/15/17 08:08 17:41 04:15 WBC RBC Hgb Hct MCV MCH MCHC RDW Plt Count Lymph % (Auto) [place] % (Auto) Lymph # [place] # Baso # Seg Neutrophils % Seg Neuts % (Manual) Lymphocytes % (Manual) Monocytes % (Manual) Eosinophils % (Manual) Basophils % (Manual) Nucleated RBC % Seg Neutrophils # Seg Neutrophils # Man Lymphocytes # (Manual) Monocytes # (Manual) Eosinophils # (Manual) Basophils # (Manual) PT INR Fibrinogen dRVVT Confirm Interp Factor V Activity POC ABG pH POC ABG pCO2 POC ABG pO2 ABG pO2 ABG HCO3 ABG Base Excess ABG Hemoglobin Oxyhemoglobin Sodium Potassium Chloride Carbon Dioxide 18 L 21 L BUN 79 H 113 H Creatinine 2.1 H 2.8 H Glucose POC Glucose 118 H Lactic Acid Calcium 10.7 H Phosphorus 1.70 L D Magnesium 1.60 L Direct Bilirubin AST ALT Alkaline Phosphatase Lactate Dehydrogenase Troponin T C-Reactive Protein Total Protein Albumin Prealbumin Triglycerides Cholesterol LDL Cholesterol Direct HDL Cholesterol PTH Intact Urine pH Urine WBC (Auto) Urine Creatinine Urine Total Protein Fluid Total Protein Vancomycin Trough Rheumatoid Factor Complement C4 Miscellaneous Test Crossmatch 02/15/17 02/15/17 02/15/17 06:06 11:31 17:52 WBC RBC Hgb Hct MCV MCH MCHC RDW Plt Count Lymph % (Auto) [place] % (Auto) Lymph # [place] # Baso # Seg Neutrophils % Seg Neuts % (Manual) Lymphocytes % (Manual) Monocytes % (Manual) Eosinophils % (Manual) Basophils % (Manual) Nucleated RBC % Seg Neutrophils # Seg Neutrophils # Man Lymphocytes # (Manual) Monocytes # (Manual) Eosinophils # (Manual) Basophils # (Manual) PT INR Fibrinogen dRVVT Confirm Interp Factor V Activity POC ABG pH POC ABG pCO2 POC ABG pO2 ABG pO2 ABG HCO3 ABG Base Excess ABG Hemoglobin Oxyhemoglobin Sodium Potassium Chloride Carbon Dioxide BUN Creatinine Glucose POC Glucose 115 H 129 H 201 H Lactic Acid Calcium Phosphorus Magnesium Direct Bilirubin AST ALT Alkaline Phosphatase Lactate Dehydrogenase Troponin T C-Reactive Protein Total Protein Albumin Prealbumin Triglycerides Cholesterol LDL Cholesterol Direct HDL Cholesterol PTH Intact Urine pH Urine WBC (Auto) Urine Creatinine Urine Total Protein Fluid Total Protein Vancomycin Trough Rheumatoid Factor Complement C4 Miscellaneous Test Crossmatch 02/15/17 02/16/17 02/16/17 19:08 05:12 06:00 WBC RBC Hgb Hct MCV MCH MCHC RDW Plt Count Lymph % (Auto) [place] % (Auto) Lymph # [place] # Baso # Seg Neutrophils % Seg Neuts % (Manual) Lymphocytes % (Manual) Monocytes % (Manual) Eosinophils % (Manual) Basophils % (Manual) Nucleated RBC % Seg Neutrophils # Seg Neutrophils # Man Lymphocytes # (Manual) Monocytes # (Manual) Eosinophils # (Manual) Basophils # (Manual) PT INR Fibrinogen dRVVT Confirm Interp Factor V Activity POC ABG pH POC ABG pCO2 POC ABG pO2 ABG pO2 ABG HCO3 ABG Base Excess ABG Hemoglobin Oxyhemoglobin Sodium Potassium Chloride Carbon Dioxide BUN 74 H Creatinine 1.7 H Glucose 102 H POC Glucose 125 H Lactic Acid Calcium Phosphorus 2.10 L D Magnesium Direct Bilirubin AST ALT Alkaline Phosphatase Lactate Dehydrogenase Troponin T C-Reactive Protein Total Protein Albumin Prealbumin Triglycerides Cholesterol LDL Cholesterol Direct HDL Cholesterol PTH Intact 10.88 L Urine pH Urine WBC (Auto) Urine Creatinine Urine Total Protein Fluid Total Protein Vancomycin Trough Rheumatoid Factor Complement C4 Miscellaneous Test Crossmatch Allied health notes reviewed: RT (Has been on PS 04/07, no desaturations today)
[2017-02-16] MEDS: MAG-OX PO SCH (10:35)
[2017-02-16] MEDS: DIFLUCAN 200 MG/100 ML BAG IV SCH (10:35)
[2017-02-16] MEDS: PROTONIX FEEDTUBE SCH (10:36)
[2017-02-16] MEDS: ROBINUL PO SCH (10:36)
[2017-02-16] MEDS: HEPARIN SUB-Q SCH ×2 (10:36→22:46)
--- NOTE | 2017-02-16 10:49 | Progress Note ---
Assessment and Plan Assessment: 1) Recurrent SIRS: new fever- Likely due to perforated bowel 2) History of Peritonitis: from gastric perforation from dislodged PEG with significant ascites -S/P exlap, repair of gastric perforation with wedge gastrectomy, abdominal washout, drain placement on 10/05 3) History of Candidemia: -Blood cultures positive for Silvia albicans on 09/23 and 09/25 -Blood cultures negative on 09/30 -PICC line changed on 10/03 -Source ? gastric perf (PEG placed on 09/20) +/- TPN +/- central lines -TTE 10/07 no vegetations -PICC exchanged on 10/03 -fully treated with micafungin for 14 days last day 10/13 4) History CA-UTI s/p gutierrez exchanged 5) Diarrhea - ? etiology ? antibiotic-induced, not better. 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 from GI bleed 13) Recent abdominal wall abscess at surgical site-treated 14 ) Recent Enterococcal bacteremia from PICC line infection. 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 -S/P debridement at bedside - new wound cx 01/24 +Proteus and MDR Pseudomonas (resistant to meropenem and cefepime/sensitive to ceftazidime) and wound VAC placement -CRP=24 --> 8 16) Presumed VAP: sputum + MDR Pseudomonas / Proteus / pleural effusion s/p thoracentesis 17) Resp failure - better 18) Perforated bowel: Ct showed presumed perf bowel with free air Plan: -continue ceftazidime IV total 3 weeks until 02/20/17 - initially started for sacral osteo -continue flagyl and fluconazole day 2 of 7 -pt was made DNR - unfortunately very poor prognosis. I will be off until Feb 22, but available over the phone, please call me for questions. Thank you Dr Hodges or your consultation, will follow up with you. Pauline Carias MD Infectious Diseases Specialist [facility], [place], [facility] ([facility]) M [phone] O [phone] Subjective Date of service: 02/16/17 Principal diagnosis: Acute resp failure on MVS; S/P Acute CVA; Acute Encephalopathy; JUANITA Interval history: Interval history: remains on the vent, tachy on monitor, tmax 100.7 Microbiology: Blood cultures: 09/13 neg 8/ Silvia albicans 09/25 Silvia 09/29 neg 10/07 neg 11/05 neg 11/07 ngtd 10 E faecalis 1 of 4 bottles 11/25 neg 12/27 neg 01/09 ngtd 02/14 ngtd Urine cultures: 09/10 neg 09/13 neg 8/ 10-100K mixed species 10/07 neg 11/05 VRE 11/07 mixed bacteria Respiratory cultures: 09/07 neg 09/13 neg 09/23 neg 11/07 MDR Pseudomonas 11/21 tracheal + VRE 01/09 Pseudomonas x 3 and Proteues Pleural effusion: ngtd Wound cultures: 10/17 abd wall wound purulence + Pseudomonas MDR 01/24 GNRs Stool cultures: cath tip 11/07 + ICT [employer]CH[employer]ICIAN Current Antimicrobials: ceftaz 01/30 Previous Antimicrobials: Zosyn 10/07 Vancomycin PO 10/01 Metronidazole 09/25 Micafungin 09/27-10/13 Meropenem 10/10 Vanco 10/17 zosyn 10/21 Cefepime 11/10 vancomyin 11/07 fluconazole 10/19 cefepime 10/29levaquin 11/05 vanco 11/23 meropenem 01/08 Objective - Exam Narrative Exam: General appearance: alert non communicative, on the vent via trach in mild resp distress, no following commands Eyes: anicteric sclera, moist conjunctivae; PERRLA HENT: Atraumatic; oropharynx limited; Normal external ears. +NGT with greenish secretion Neck: +trach in place; supple, no thyromegaly or lymphadenopathy Lungs: brit coarse BS CV: tachy Abdomen: Soft, tender, +old PEG site no drainage. +iliostomy. Right sided Surgical site x 2 with ostomy bags Extremities: +peripheral edema Skin: sacral area wounds - per wound care STAGE 4 PRESSURE INJURY TO SACRAL MEASURES 7.5X6X2.5, WITH UNDERMINING FROM @9-1 OCLOCK-2.8CM-ULCER CLEANED WITH WOUND FORMING DEPARTMENT END FINDER-ULCER NEW - Sacrum wound measuring 9x11cm. Necrotic tissue noted on the wound edges and in the wound bed Now with a wound VAC Psych: somnolent . Neuro: alert non verbal on the vent. Lines: PICC / gutierrez - Constitutional Vitals: Vital Signs Temp Pulse Resp BP Pulse Ox 98.7 F 111 H 30 H 113/57 100 02/16/17 08:00 02/16/17 09:21 02/16/17 09:21 02/16/17 09:18 02/16/17 09:18 Temperature -Last 24 Hours Temperature 98.7 F Temperature 98.4 F Temperature 100.7 F Temperature 99.4 F Temperature 98.8 F Temperature 98.8 F Temperature 98.8 F Temperature 98.6 F - Labs CBC & Chem 7: 02/14/17 08:08 02/16/17 06:00 Labs: Abnormal lab results 02/15/17 02/15/17 02/15/17 Range/Units 11:31 17:52 19:08 BUN (7-17) mg/dL Creatinine (0.7-1.2) mg/dL Glucose (65-100) mg/dL POC Glucose 129 H 201 H (70-105) Phosphorus (2.5-4.5) mg/dL PTH Intact 10.88 L (15-65) pg/mL 02/16/17 02/16/17 Range/Units 05:12 06:00 BUN 74 H (7-17) mg/dL Creatinine 1.7 H (0.7-1.2) mg/dL Glucose 102 H (65-100) mg/dL POC Glucose 125 H (70-105) Phosphorus 2.10 L D (2.5-4.5) mg/dL PTH Intact (15-65) pg/mL
[2017-02-16] MEDS ORDERED: ALBURX 25% (ALBUMIN) IV ONE (11:20)
--- NOTE | 2017-02-16 16:25 | Progress Note ---
Assessment and Plan Assessment and plan: Patient is 46-year-old woman with a history of hypertension, diabetes, asthma, hyperlipidemia, chronic kidney disease and anxiety , who was brought in by family because, she couldn't get her words out, her face was also twisted, she was admitted for acute CVA and accelerated hypertension, she had a hx of poor adherence with her medications, and uncontrolled htn. Patient's SBP on admission was noted be greater than 260. TPA was started but this was discontinued after 5 minutes because her blood pressure became uncontrolled. The TPA was not initiated again because the patient was outside the TPA window. Bowel P Status post cardiac arrest , 11/21/16 on Mechanical ventilation >96 hrs - Received CPR and was resuscitated. - Patient is on amiodarone. Fever - resolved - Patient was initially treated with Abx - s/p R thoracentesis on 11/14, 240cc of serous fluid removed, cx of fluid was negative - Stool negative for C. difficile Severe Sepsis with septic shock - Patient has episode of fever and leukocytosis -Recurrent Leukocytosis, with Meropenem restarted, due to continued sacral decubitus. Surgical wound infection/gram-negative sepsis/candidemia/peritonitis - On TPN JUANITA, ESRD - discussed with Dr Wadsworth - on HD - Cr 1.9 today Acute CVA with infarct - Neurology input appreciated - CT shows continued evolution of left MCA infarct with slight mass effect and edema, and there is no hemorrhage - PRINCE showed hyperdynamic with ef of 75%, neither clot nor septal defect seen - MRA Brain shows near complete occlusion of M2 and M3 of the left MCA - Repeat CT scan done on 09/11, shows stable findings - carotid doppler negative - Echo shows preserved systolic function but does show some left ventricular diastolic dysfunction - continue asa and statin Persistent vegetative state - This patient's needs placement at SNF - She was denied for LTACH Acute hypoxic respiratory failure requiring MV >96hrs - Status post tracheostomy, was on T piece Nosocomial acquired aspiration pneumonia/sepsis/UTI - Finished a course of antibiotics Asthma/COPD exacerbation - ON trach, mechanical ventilation >96 hrs Status Post CVA Bilateral pleural effusion, s/p right thoracentesis A. fib with RVR Diabetes type 2. Continue sliding-scale regular insulin and Accu-Cheks. Hyperlipidemia. Continue statin Nutrition - TPN Anemia requiring multiple transfusions/acute blood loss - currently stable - Check AM labs - Will transfuse if it is below 7 Sacral decubitus ulcer - Status post debridement Disposition. Very poor prognosis. Ethics consult has been placed, will await there input. Cannot reach family, multiple calls placed. Nursing staff on the look out for family and will notify physician. 02/12/17: Persistent vomiting. Patient clinically unchanged since my last visit. CT abdomen obtained, shows possible bowel perforation. I discussed with Surgeon and we individually spoke to family. Patients son and brother do not want any surgery, they will like her comfortable but no hospice and no Resuscitation efforts. Patient made DNR Per family request. Nursing staff notified. 02/16/17: Acute on chronic Hypoxic Respiratory failure Afib with RVR-Improved on amiodarone drip. will switch to PO once of the vent or you need a trachy Peforated Abdomen ESRD SHOCK LIKE STATE improved with fludis and amiodarone. * Reduce pain medication use * complex infectious process cannot be ruled out, will continue to monitor. Doubt utility of Abx at this time considering lack of curatvie measures. will discuss with ID. Hypophos/hypomag. * Resplaced. * Remains critically ill. Continue supportive care * Poor prognosis communicated to family. * No surgical intervention - The high probability of a clinically significant, sudden or life threatening deterioration of the [neurologic, CV] system(s) required my full and direct attention, intervention and personal management. The aggregate critical care time was [35] minutes. This time is in addition to time spent performing reported procedures but includes the following: [x] Data Review and interpretation [x] Patient assessment and monitoring of vital signs [x] Documentation [x] Medication orders and management History Interval history: patient seen and examined, remains unresponsive on the ventilator. still with increased output on OGT. HEART RATE BETTER WITH AMIODARONE. Hospitalist Physical - Physical exam Narrative exam: GEN: Ill appearing, trach, staring into space, not tracking either NECK: SUPPLE, trach in place, ngt in place CVS:Irregular Irregular with tachycardia LUNGS/CHEST: NORMAL CHEST EXPANSION B, GOOD AIR ENTRY B, tachypena ABD: SOFT, no grimise on abdominal palpation, Ostomy bags at two side by side fistula site. GBS, NO REBOUND OR GUARDING, peg tube in place EXT/SKIN: NO SIGNIFICANT EDEMA BUT WITH UNSTAGEABLE SACRAL DECUB, wound vac inplace MSK: +spontaneous non purposeful movement NEURO: on a ventilator and unresponsive despite being off sedation PSY: Comatose, - Constitutional Vitals: Temp Pulse Resp BP Pulse Ox 98.7 F 90 18 111/62 98 02/16/17 12:00 02/16/17 16:15 02/16/17 16:00 02/16/17 16:15 02/16/17 16:16 General appearance: Present: no acute distress, well-nourished Results - Labs CBC & Chem 7: 02/14/17 08:08 02/16/17 06:00 Labs: Laboratory Last Values WBC 15.2 K/mm3 (4.5-11.0) H 02/14/17 08:08 RBC 2.97 M/mm3 (3.65-5.03) L 02/14/17 08:08 Hgb 8.1 gm/dl (10.1-14.3) L 02/14/17 08:08 Hct 26.3 % (30.3-42.9) L 02/14/17 08:08 MCV 89 fl (79-97) 02/14/17 08:08 MCH 28 pg (28-32) 02/14/17 08:08 MCHC 31 % (30-34) 02/14/17 08:08 RDW 19.3 % (13.2-15.2) H 02/14/17 08:08 Plt Count 311 K/mm3 (140-440) 02/14/17 08:08 Lymph % (Auto) 19.3 % (13.4-35.0) 02/05/17 09:59 [place] % (Auto) 9.2 % (0.0-7.3) H 02/05/17 09:59 Eos % (Auto) 1.8 % (0.0-4.3) 02/05/17 09:59 Baso % (Auto) 0.5 % (0.0-1.8) 02/05/17 09:59 Lymph # 2.0 K/mm3 (1.2-5.4) 02/05/17 09:59 [place] # 0.9 K/mm3 (0.0-0.8) H 02/05/17 09:59 Eos # 0.2 K/mm3 (0.0-0.4) 02/05/17 09:59 Baso # 0.0 K/mm3 (0.0-0.1) 02/05/17 09:59 Add Manual Diff Complete 12/19/16 05:02 Total Counted 100 12/19/16 05:02 Seg Neutrophils % 69.2 % (40.0-70.0) 02/05/17 09:59 Seg Neuts % (Manual) 64.0 % (40.0-70.0) 12/19/16 05:02 Band Neutrophils % 15.0 % 12/19/16 05:02 Lymphocytes % (Manual) 13.0 % (13.4-35.0) L 12/19/16 05:02 Reactive Lymphs % (Man) 0 % 12/19/16 05:02 Monocytes % (Manual) 7.0 % (0.0-7.3) 12/19/16 05:02 Eosinophils % (Manual) 0 % (0.0-4.3) 12/19/16 05:02 Basophils % (Manual) 1.0 % (0.0-1.8) 12/19/16 05:02 Metamyelocytes % 0 % 12/19/16 05:02 Myelocytes % 0 % 12/19/16 05:02 Promyelocytes % 0 % 12/19/16 05:02 Blast Cells % 0 % 12/19/16 05:02 Nucleated RBC % 1.0 % (0.0-0.9) H 12/19/16 05:02 Seg Neutrophils # 7.1 K/mm3 (1.8-7.7) 02/05/17 09:59 Seg Neutrophils # Man 12.9 K/mm3 (1.8-7.7) H 12/19/16 05:02 Band Neutrophils # 3.0 K/mm3 12/19/16 05:02 Lymphocytes # (Manual) 2.6 K/mm3 (1.2-5.4) 12/19/16 05:02 Abs React Lymphs (Man) 0.0 K/mm3 12/19/16 05:02 Monocytes # (Manual) 1.4 K/mm3 (0.0-0.8) H 12/19/16 05:02 Eosinophils # (Manual) 0.0 K/mm3 (0.0-0.4) 12/19/16 05:02 Basophils # (Manual) 0.2 K/mm3 (0.0-0.1) H 12/19/16 05:02 Metamyelocytes # 0.0 K/mm3 12/19/16 05:02 Myelocytes # 0.0 K/mm3 12/19/16 05:02 Promyelocytes # 0.0 K/mm3 12/19/16 05:02 Blast Cells # 0.0 K/mm3 12/19/16 05:02 Pathologist Review 09/13/16 04:00 WBC Morphology Not Reportable 12/19/16 05:02 Hypersegmented Neuts Not Reportable 12/19/16 05:02 Hyposegmented Neuts Not Reportable 12/19/16 05:02 Hypogranular Neuts Not Reportable 12/19/16 05:02 Smudge Cells Not Reportable 12/19/16 05:02 Toxic Granulation Not Reportable 12/19/16 05:02 Toxic Vacuolation Not Reportable 12/19/16 05:02 Dohle Bodies Not Reportable 12/19/16 05:02 Pelger-Huet Anomaly Not Reportable 12/19/16 05:02 Jasmina Rods Not Reportable 12/19/16 05:02 Platelet Estimate Consistent w auto 12/19/16 05:02 Clumped Platelets Not Reportable 12/19/16 05:02 Plt Clumps, EDTA Not Reportable 12/19/16 05:02 Large Platelets Not Reportable 12/19/16 05:02 Giant Platelets Not Reportable 12/19/16 05:02 Platelet Satelliting Not Reportable 12/19/16 05:02 Plt Morphology Comment Not Reportable 12/19/16 05:02 RBC Morphology Not Reportable 12/19/16 05:02 Dimorphic RBCs Not Reportable 12/19/16 05:02 Polychromasia Not Reportable 12/19/16 05:02 Hypochromasia Not Reportable 12/19/16 05:02 Poikilocytosis Not Reportable 12/19/16 05:02 Anisocytosis Not Reportable 12/19/16 05:02 Microcytosis Not Reportable 12/19/16 05:02 Macrocytosis Not Reportable 12/19/16 05:02 Spherocytes Not Reportable 12/19/16 05:02 Pappenheimer Bodies Not Reportable 12/19/16 05:02 Sickle Cells Not Reportable 12/19/16 05:02 Target Cells Few 12/19/16 05:02 Tear Drop Cells Not Reportable 12/19/16 05:02 Ovalocytes Not Reportable 12/19/16 05:02 Stomatocytes Rare 12/03/16 04:00 Helmet Cells Not Reportable 12/19/16 05:02 [place] Bodies Not Reportable 12/19/16 05:02 [place] Rings Not Reportable 12/19/16 05:02 Chuck Cells Not Reportable 12/19/16 05:02 Bite Cells Not Reportable 12/19/16 05:02 Crenated Cell Not Reportable 12/19/16 05:02 Elliptocytes Not Reportable 12/19/16 05:02 Acanthocytes (Spur) Not Reportable 12/19/16 05:02 Rouleaux Not Reportable 12/19/16 05:02 Hemoglobin C Crystals Not Reportable 12/19/16 05:02 Schistocytes Not Reportable 12/19/16 05:02 Malaria parasites Not Reportable 12/19/16 05:02 ESR > 140.0 mm/Hr (0-20) 09/08/16 11:48 Jun Bodies Not Reportable 12/19/16 05:02 Hem Pathologist Commnt No 12/19/16 05:02 PT 15.4 Sec. (12.2-14.9) H 01/13/17 15:50 INR 1.16 (0.87-1.13) H 01/13/17 15:50 APTT 33.0 Sec. (24.2-36.6) 10/09/16 03:45 Thrombin Time 16.8 Sec. (15.1-19.6) 09/03/16 00:10 Fibrinogen 750 mg/dl (211-480) H 09/08/16 11:48 Lupus Anticoagulant see below 09/12/16 09:59 LA PTT Baseline See scanned report 09/12/16 09:59 dRVVT Confirm Interp Positive (Negative) H 09/12/16 09:59 dRVVT Screen 50:50 See scanned report 09/12/16 09:59 dRVVT Mix Interpret See scanned report 09/12/16 09:59 Protein C Antigen 122 % (70-140) 09/08/16 15:35 Free Protein S 97 % normal (50-147) 09/08/16 15:35 Total Protein S 109 % (70-140) 09/08/16 15:35 Antithrombin III Ag 100 % (80-120) 09/08/16 15:35 Heparin Anti-Xa, Unfract Negative (Negative) 09/29/16 13:35 Factor V Activity 182 % (65-150) H 09/08/16 15:35 POC ABG pH 7.436 (7.35-7.45) 01/20/17 12: ABG pH 7.450 pH Units (7.350-7.450) 12/05/16 Unknown POC ABG pCO2 35.3 (35-45) 01/20/17 12: ABG pCO2 29.6 mm Hg 12/05/16 Unknown POC ABG pO2 70 (80-105) L 01/20/17 12: ABG pO2 75.2 mm Hg (80.0-90.0) L 12/05/16 Unknown POC ABG HCO3 23.8 01/20/17 12: ABG HCO3 20.1 mmol/L (20.0-26.0) 12/05/16 Unknown POC ABG Total CO2 25 01/20/17 12:17 POC ABG O2 Sat 94 01/20/17 12: ABG O2 Saturation 96.8 % (95.0-99.0) 12/05/16 Unknown ABG O2 Content 9.9 (0.0-44) 12/05/16 Unknown POC ABG Base Excess 0 01/20/17 12: ABG Base Excess -3.4 mmol/L (-2.0-3.0) L 12/05/16 Unknown ABG Hemoglobin 7.4 gm/dl (12.0-16.0) L 12/05/16 Unknown ABG Carboxyhemoglobin 1.8 % (0.0-5.0) 12/05/16 Unknown ABG Methemoglobin 0.6 % (0.0-1.5) 12/05/16 Unknown Oxyhemoglobin 94.5 % (95.0-99.0) L 12/05/16 Unknown FiO2 30 % 01/20/17 12:17 Sodium 137 mmol/L (137-145) 02/16/17 06:00 Potassium 4.0 mmol/L (3.6-5.0) 02/16/17 06:00 Chloride 100.1 mmol/L (98-107) 02/16/17 06:00 Carbon Dioxide 23 mmol/L (22-30) 02/16/17 06:00 Anion Gap 18 mmol/L 02/16/17 06:00 BUN 74 mg/dL (7-17) H 02/16/17 06:00 Creatinine 1.7 mg/dL (0.7-1.2) H 02/16/17 06:00 Estimated GFR 39 ml/min 02/16/17 06:00 BUN/Creatinine Ratio 44 % 02/16/17 06:00 Glucose 102 mg/dL (65-100) H 02/16/17 06:00 POC Glucose 125 (70-105) H 02/16/17 05:12 Osmolality 351 Mosm/kg 09/16/16 11:47 Lactic Acid 2.30 mmol/L (0.7-2.0) H* 01/09/17 08:22 Calcium 9.5 mg/dL (8.4-10.2) 02/16/17 06:00 Phosphorus 2.10 mg/dL (2.5-4.5) L D 02/16/17 06:00 Magnesium 1.80 mg/dL (1.7-2.3) 02/16/17 06:00 Total Bilirubin 0.40 mg/dL (0.1-1.2) 02/06/17 04:45 Direct Bilirubin 0.2 mg/dL (0-0.2) 01/28/17 04:00 Indirect Bilirubin 0.3 mg/dL 01/28/17 04:00 AST 29 units/L (5-40) 02/06/17 04:45 ALT 26 units/L (7-56) 02/06/17 04:45 Alkaline Phosphatase 199 units/L (35-129) H 02/06/17 04:45 Ammonia 27.0 umol/L (25-60) 09/07/16 08:37 Lactate Dehydrogenase 170 units/L (91-180) 01/13/17 15:50 Total Creatine Kinase 121 units/L (30-135) 09/29/16 20:12 CK-MB (CK-2) < 1.0 ng/mL (0.0-4.0) 09/29/16 20:12 CK-MB (CK-2) Rel Index 0.8 (0-4) 09/29/16 20:12 Troponin T 0.204 ng/mL (0.00-0.029) H* 09/29/16 20:12 C-Reactive Protein 8.10 mg/dL (0.00-1.30) H 01/31/17 11:12 Total Protein 6.7 g/dL (6.3-8.2) 02/06/17 04:45 Albumin 1.4 g/dL (3.9-5) L 02/06/17 04:45 Albumin/Globulin Ratio 0.3 % 02/06/17 04:45 Prealbumin 0.110 g/L (0.200-0.400) L 12/29/16 05:15 Triglycerides 55 mg/dL (2-149) 02/06/17 04:45 Cholesterol 31 mg/dL (50-199) L 09/29/16 20:12 LDL Cholesterol Direct 4 mg/dL (50-130) L 09/29/16 20:12 HDL Cholesterol 3 mg/dL (40-59) L 09/29/16 20:12 Cholesterol/HDL Ratio 10.33 % 09/29/16 20:12 Angiotensin Convert Enz See scanned report 09/08/16 11:48 Renin 0.99 ng/mL/h (0.25-5.82) 10/07/16 10:56 Aldosterone <1 ng/dL () 10/07/16 10:56 Aldosterone/Renin Dir see below 10/07/16 10:56 Serotonin Release Assay See scanned report 09/29/16 13:35 TSH 1.010 mlU/mL (0.270-4.200) 09/07/16 08:37 HCG, Qual Negative (Negative) 09/03/16 00:10 PTH Intact 10.88 pg/mL (15-65) L 02/15/17 19:08 Total Cortisol 18.2 mcg/dL () 02/02/17 20:09 Urine Color Yellow (Yellow) 11/05/16 13:09 Urine Turbidity Clear (Clear) 11/05/16 13:09 Urine pH 9.0 (5.0-7.0) H 11/05/16 13:09 Ur Specific [place] 1.011 (1.003-1.030) 11/05/16 13:09 Urine Protein 100 mg/dl mg/dL (Negative) 11/05/16 13:09 Urine Glucose (UA) Neg mg/dL (Negative) 11/05/16 13:09 Urine Ketones Neg mg/dL (Negative) 11/05/16 13:09 Urine Blood Neg (Negative) 11/05/16 13:09 Urine Nitrite Neg (Negative) 11/05/16 13:09 Urine Bilirubin Neg (Negative) 11/05/16 13:09 Urine Urobilinogen < 2.0 mg/dL (<2.0) 11/05/16 13:09 Ur Leukocyte Esterase Neg (Negative) 11/05/16 13:09 Urine WBC (Auto) 4.0 /HPF (0.0-6.0) 11/05/16 13:09 Urine RBC (Auto) 1.0 /HPF (0.0-6.0) 11/05/16 13:09 U Epithel Cells (Auto) 1.0 /HPF (0-13.0) 10/07/16 18:30 Urine Bacteria (Auto) 4+ /HPF (Negative) 11/05/16 13:09 Urine WBC Clumps 2+ /HPF 09/07/16 02:47 Hyaline Casts 4 /LPF 09/07/16 02:47 Urine Mucus Few /HPF 10/07/16 18:30 Urine Yeast (Budding) 3+ /HPF 10/07/16 18:30 Urine Eosinophils None seen (None Seen) 09/07/16 16:00 Urine Total Volume 950 11/12/16 10:18 Urine Creatinine 19.7 mg/dL (0.1-20.0) 11/12/16 10:18 Height (in) 65.0 inches 11/12/16 10:18 Weight (lb) 181.0 lbs 11/12/16 10:18 Creatinine Clearance 5 11/12/16 10:18 Urine Sodium 36 mEq/L 09/16/16 19:19 Urine Total Protein 16 mg/dL (5-11.8) H 09/16/16 19:19 Fluid Type Pleural 01/13/17 12:10 Fluid Color Yellow 01/13/17 12:10 Fluid Appearance Hazy 01/13/17 12:10 Fluid WBC 182 /mm3 01/13/17 12:10 Fluid RBC 41 /mm3 01/13/17 12:10 Fluid Seg Neutrophils 85.0 % 01/13/17 12:10 Fluid Lymphocytes 8.0 % 01/13/17 12:10 Fluid Reactive Lymphs 0 % 01/13/17 12:10 Fluid Monocytes 6.0 % 01/13/17 12:10 Fluid Eosinophils 1.0 % 01/13/17 12:10 Fluid Basophils 0 % 01/13/17 12:10 Fluid Total Protein 3.0 (15.0-45.0) L 01/13/17 12:10 Fluid LDH 1322 01/13/17 12:10 Fluid Comment Diff performed 01/13/17 12:10 Vancomycin Trough 2.3 ug/mL (5.0-20.0) L 09/21/16 13:00 Random Vancomycin 16.5 ug/mL (0-40.0) 11/28/16 09:45 Urine Opiates Screen Presumptive negative 09/03/16 15:11 Urine Methadone Screen Presumptive positive 09/03/16 15:11 Ur Barbiturates Screen Presumptive positive 09/03/16 15:11 Ur Phencyclidine Scrn Presumptive negative 09/03/16 15:11 Ur Amphetamines Screen Presumptive negative 09/03/16 15:11 U Benzodiazepines Scrn Presumptive negative 09/03/16 15:11 Urine Cocaine Screen Presumptive negative 09/03/16 15:11 U Marijuana (THC) Screen Presumptive positive 09/03/16 15:11 Drugs of Abuse Note Disclamer 09/03/16 15:11 Rheumatoid Factor 24 IU/ml (0-13) H 09/08/16 11:48 SAHIL Screen Negative (Negative) 09/07/16 09:20 Proteinase 3 (PR3) Ab <1.0 AI (<1.0) 09/07/16 09:20 Myeloperoxidase Ab <1.0 AI (<1.0) 09/07/16 09:20 Sjogren's Antibody <1.0 AI (<1.0) 09/08/16 15:35 Scl-70 Scleroderma Ab <1.0 AI (<1.0) 09/08/16 15:35 Centromere B Antibody <1.0 AI (<1.0) 09/08/16 12:02 Heparin-induced Plt Ab Negative (Negative) 09/29/16 13:35 UF Heparin High Dose 11 % Release 09/29/16 13:35 SUDHIR UFH Low Dose 0.1 6 % Release 09/29/16 13:35 SUDHIR UFH Low Dose 0.5 8 % Release 09/29/16 13:35 Cardiolipid IgG Ab <14 GPL (<=14) 09/12/16 09:59 Cardiolipid IgA Ab <11 APL (<=11) 09/12/16 09:59 Cardiolipid IgM Ab <12 MPL (<=12) 09/12/16 09:59 Complement C3 148 mg/dL (90-180) 09/07/16 09:20 Complement C4 58 mg/dL (16-47) H 09/07/16 09:20 RPR Nonreactive (Nonreactive) 09/08/16 11:48 Hepatitis A IgM Ab Non-reactive (NonReactive) 09/24/16 14:40 Hep Bs Antigen Non-reactive (Negative) 09/24/16 14:40 Hep B Core IgM Ab Non-reactive (NonReactive) 09/24/16 14:40 Hepatitis C Antibody Non-reactive (NonReactive) 09/24/16 14:40 HIV 1&2 Antibody Rapid Non react (Non React) 09/08/16 11:48 HIV P24 Antigen Non react (Non React) 09/08/16 11:48 Miscellaneous Test Flexitest 1 H 01/09/17 18:45 Blood Type A POSITIVE 02/12/17 10:25 Antibody Screen Negative 02/12/17 10:25 DELORIS Antibody Screen Negative 11/24/16 11:20 Crossmatch See Detail 02/12/17 10:25
[2017-02-16] MEDS ORDERED: TPN ADULT IV SCH (20:00)
[2017-02-17] MEDS: FLAGYL 500 MG/100 ML 500 MG/100 ML BAG IV SCH ×3 (05:50→21:16)
[2017-02-17] MEDS: HumuLIN R SUB-Q SCH ×5 (05:52→18:17)
[2017-02-17] MEDS: REGLAN IV SCH ×3 (06:08→21:17)
[2017-02-17] MEDS: ROBINUL PO SCH ×3 (06:09→21:17)
[2017-02-17 07:14] LABS: Calcium 10.2 mg/dL (8.4-10.2)
[2017-02-17] MEDS: DUONEB *Not for PRN Use IH SCH ×3 (07:42→19:18)
--- NOTE | 2017-02-17 09:08 | Progress Note ---
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 UF as tolerated. Patient's serum creatinine is noted to be low - due to wasting of muscle mass. Needs to be maintained on dialysis at this time. * Await hypercalcemia work up - likely due to immobilization * Adjust Ca bath with dialysis * Transfuse pRBC per primary team. Epogen TIW prn * Vent management per pulm/CCM * Pressors prn for MAP>65 * Dose medications for renal function Subjective Date of service: 02/17/17 Principal diagnosis: Acute resp failure on MVS; S/P Acute CVA; Acute Encephalopathy; JUANITA Interval history: Patient without acute events overnight Objective - Vital Signs Vital signs: Vital Signs - 12hr 02/16/17 02/16/17 02/16/17 22:00 23:00 23:54 Temperature 98.3 F Pulse Rate 90 101 H Pulse Rate [ From Monitor] Pulse Rate [ Throughout] Respiratory 19 Rate Respiratory Rate [ Throughout] Blood Pressure 143/79 121/67 O2 Sat by Pulse 94 100 Oximetry O2 Sat by Pulse Oximetry [ Assessment] 02/16/17 02/17/17 02/17/17 23:59 00:00 01:00 Temperature Pulse Rate 101 H 98 H 93 H Pulse Rate [ From Monitor] Pulse Rate [ Throughout] Respiratory 12 17 Rate Respiratory Rate [ Throughout] Blood Pressure 121/67 140/79 140/79 O2 Sat by Pulse 99 100 Oximetry O2 Sat by Pulse Oximetry [ Assessment] 02/17/17 02/17/17 02/17/17 02:00 02:55 03:00 Temperature Pulse Rate 96 H 89 Pulse Rate [ From Monitor] Pulse Rate [ Throughout] Respiratory 25 H 20 Rate Respiratory Rate [ Throughout] Blood Pressure 148/79 136/74 O2 Sat by Pulse 100 Oximetry O2 Sat by Pulse 99 Oximetry [ Assessment] 02/17/17 02/17/17 02/17/17 03:45 03:49 04:00 Temperature 99.9 F H Pulse Rate 86 77 Pulse Rate [ 80 From Monitor] Pulse Rate [ Throughout] Respiratory 16 Rate Respiratory Rate [ Throughout] Blood Pressure 133/63 133/63 O2 Sat by Pulse 100 100 Oximetry O2 Sat by Pulse Oximetry [ Assessment] 02/17/17 02/17/17 02/17/17 05:00 06:00 07:00 Temperature Pulse Rate 76 84 90 Pulse Rate [ From Monitor] Pulse Rate [ Throughout] Respiratory 11 L 15 21 Rate Respiratory Rate [ Throughout] Blood Pressure 118/74 118/74 118/74 O2 Sat by Pulse 100 100 93 Oximetry O2 Sat by Pulse Oximetry [ Assessment] 02/17/17 02/17/17 02/17/17 07:37 07:40 07:43 Temperature Pulse Rate 89 84 Pulse Rate [ From Monitor] Pulse Rate [ 85 Throughout] Respiratory 24 Rate Respiratory 26 H Rate [ Throughout] Blood Pressure 140/79 140/79 O2 Sat by Pulse 100 100 Oximetry O2 Sat by Pulse Oximetry [ Assessment] 02/17/17 02/17/17 07:48 07:50 Temperature Pulse Rate Pulse Rate [ From Monitor] Pulse Rate [ 82 Throughout] Respiratory Rate Respiratory 27 H Rate [ Throughout] Blood Pressure O2 Sat by Pulse Oximetry O2 Sat by Pulse 100 Oximetry [ Assessment] - General Appearance General appearance: chronically ill EENT: ATNC Respiratory: Present: Other (coarse breath sounds) Cardiology: regular, S1S2 Gastrointestinal: hypoactive bowel sounds Neurologic: other (does not respond to tactile/verbal stimuli) Musculoskeletal: other (trace edema) - Lab 02/14/17 08:08 02/17/17 06:00 Most recent lab results ABG pH 7.450 pH Units (7.350-7.450) 12/05/16 Unknown ABG pCO2 29.6 mm Hg 12/05/16 Unknown ABG pO2 75.2 mm Hg (80.0-90.0) L 12/05/16 Unknown ABG HCO3 20.1 mmol/L (20.0-26.0) 12/05/16 Unknown ABG O2 Saturation 96.8 % (95.0-99.0) 12/05/16 Unknown Calcium 10.2 mg/dL (8.4-10.2) 02/17/17 06:00 Phosphorus 3.30 mg/dL (2.5-4.5) D 02/17/17 06:00 Magnesium 2.00 mg/dL (1.7-2.3) 02/17/17 06:00 Urine Creatinine 19.7 mg/dL (0.1-20.0) 11/12/16 10:18 Urine Sodium 36 mEq/L 09/16/16 19:19 Urine Total Protein 16 mg/dL (5-11.8) H 09/16/16 19:19
[2017-02-17] MEDS: MAG-OX PO SCH (10:08)
[2017-02-17] MEDS: PROTONIX FEEDTUBE SCH (10:08)
[2017-02-17] MEDS: DIFLUCAN 200 MG/100 ML BAG IV SCH (10:08)
[2017-02-17] MEDS: HEPARIN SUB-Q SCH ×2 (10:08→21:17)
--- NOTE | 2017-02-17 12:41 | Progress Note ---
Assessment and Plan Acute Hypoxemic Respiratory Failure (now with exacerbation and back on MVS) Hypertension (unable to receive p.o. meds) Atrial Fibrillation with RVR s/p tracheostomy Acute encephalopathy s/p CVA Oropharyngeal dysphagia Enterococcal bacteremia sepsis syndrome Sacral Decubitus Ulcer (s/p surgical debridement) Anemia Obesity JUANITA now on hemodialysis Enteric Fistula (Surgical options discussed with POA and they have decided against surgery) - Made a DNR - continue to hold tube feeds due to continued intolerance; continue reglan at 10mg IV q8h - IR earlier consulted for G-J tube (not a good candidate for G-J Tube per IR) - on amiodarone drip for persistent tachycardia (improving) - Pleural fluid cultures negative - unfortunately not a good candidate for a VATS procedure - prn CXR's - appreciate surgery input - continue fentanyl patch for pain issues especially s/p debridement - continue wound care per WCT and RN's (she is s/p surgical debridement) - continue anti-infectives per ID recs ( now) - prn CRP & lactate levels if clinically indicated (Follow WBC also) - keep on with daily PSV trials and / or T-piece as tolerated - continue TPN administration - continue scopolamine for secretion control - continue to wean FiO2 for sats > 94% - continue bronchodilators and pulmonary toilet - VAP bundle addressed - continue prn IV metoprolol (5mg IV q4h) - continue metoprolol and amlodipine (hold for hypotension) - continue to follow electrolytes and correct as necessary - continue GI & VTE prophylaxis - Continue flu & pneumovax per protocol - ethics consult placed and pending .....she remains critically ill on life sustaining interventions including MVS and at risk for further deterioration including ....35' CCT ....care plan discussed at length during team rounds ...correction prognosis remains guarded and this has intermittently been conveyed to family Subjective Date of service: 02/17/17 Principal diagnosis: Acute resp failure on MVS; S/P Acute CVA; Acute Encephalopathy; JUANITA Interval history: Patient is seen today for: Acute resp failure on MVS; S/P Acute CVA; Acute Encephalopathy; JUANITA Seen and examined at bedside; 24hour events reviewed; nursing and respiratory care staff consulted; no adverse overnight events reported to me; remains on MVS ; Dialysis ongoing with plan to pull 1.5Kg; AMS is persistent; On PSV 15/5 now and tolerating tenuously; No emesis or overt aspiration but NGT effluent is persistent Objective Vital Signs - 12hr 02/17/17 02/17/17 02/17/17 01:00 02:00 02:55 Temperature Pulse Rate 93 H 96 H Pulse Rate [ From Monitor] Pulse Rate [ Throughout] Respiratory 17 25 H Rate Respiratory Rate [ Throughout] Blood Pressure 140/79 148/79 O2 Sat by Pulse Oximetry O2 Sat by Pulse Oximetry [ Anterior Bilateral Throughout] O2 Sat by Pulse 99 Oximetry [ Assessment] O2 Sat by Pulse Oximetry [ Throughout] 02/17/17 02/17/17 02/17/17 03:00 03:45 03:49 Temperature 99.9 F H Pulse Rate 89 86 Pulse Rate [ From Monitor] Pulse Rate [ Throughout] Respiratory 20 Rate Respiratory Rate [ Throughout] Blood Pressure 136/74 133/63 O2 Sat by Pulse 100 100 Oximetry O2 Sat by Pulse Oximetry [ Anterior Bilateral Throughout] O2 Sat by Pulse Oximetry [ Assessment] O2 Sat by Pulse Oximetry [ Throughout] 02/17/17 02/17/17 02/17/17 04:00 05:00 06:00 Temperature Pulse Rate 77 76 84 Pulse Rate [ 80 From Monitor] Pulse Rate [ Throughout] Respiratory 16 11 L 15 Rate Respiratory Rate [ Throughout] Blood Pressure 133/63 118/74 118/74 O2 Sat by Pulse 100 100 100 Oximetry O2 Sat by Pulse Oximetry [ Anterior Bilateral Throughout] O2 Sat by Pulse Oximetry [ Assessment] O2 Sat by Pulse Oximetry [ Throughout] 02/17/17 02/17/17 02/17/17 07:00 07:37 07:40 Temperature Pulse Rate 90 89 84 Pulse Rate [ From Monitor] Pulse Rate [ Throughout] Respiratory 21 24 Rate Respiratory Rate [ Throughout] Blood Pressure 118/74 140/79 140/79 O2 Sat by Pulse 93 100 100 Oximetry O2 Sat by Pulse Oximetry [ Anterior Bilateral Throughout] O2 Sat by Pulse Oximetry [ Assessment] O2 Sat by Pulse Oximetry [ Throughout] 02/17/17 02/17/17 02/17/17 07:43 07:48 07:50 Temperature Pulse Rate Pulse Rate [ From Monitor] Pulse Rate [ 85 82 Throughout] Respiratory Rate Respiratory 26 H 27 H Rate [ Throughout] Blood Pressure O2 Sat by Pulse Oximetry O2 Sat by Pulse Oximetry [ Anterior Bilateral Throughout] O2 Sat by Pulse 100 Oximetry [ Assessment] O2 Sat by Pulse Oximetry [ Throughout] 02/17/17 02/17/17 02/17/17 08:00 09:00 09:55 Temperature 99.9 F H Pulse Rate 84 87 94 H Pulse Rate [ From Monitor] Pulse Rate [ Throughout] Respiratory 26 H 21 22 Rate Respiratory Rate [ Throughout] Blood Pressure 140/79 140/79 150/89 O2 Sat by Pulse 100 100 Oximetry O2 Sat by Pulse 100 Oximetry [ Anterior Bilateral Throughout] O2 Sat by Pulse Oximetry [ Assessment] O2 Sat by Pulse 100 Oximetry [ Throughout] 02/17/17 02/17/17 02/17/17 10:00 10:10 10:15 Temperature Pulse Rate 89 95 H 91 H Pulse Rate [ From Monitor] Pulse Rate [ Throughout] Respiratory 22 Rate Respiratory Rate [ Throughout] Blood Pressure 143/92 150/92 153/88 O2 Sat by Pulse 100 Oximetry O2 Sat by Pulse Oximetry [ Anterior Bilateral Throughout] O2 Sat by Pulse Oximetry [ Assessment] O2 Sat by Pulse Oximetry [ Throughout] 02/17/17 02/17/17 02/17/17 10:16 10:30 10:45 Temperature Pulse Rate 93 H 93 H 100 H Pulse Rate [ From Monitor] Pulse Rate [ Throughout] Respiratory 30 H 28 H Rate Respiratory Rate [ Throughout] Blood Pressure 153/88 143/86 143/92 O2 Sat by Pulse 100 100 Oximetry O2 Sat by Pulse Oximetry [ Anterior Bilateral Throughout] O2 Sat by Pulse Oximetry [ Assessment] O2 Sat by Pulse Oximetry [ Throughout] 02/17/17 02/17/17 02/17/17 10:46 11:00 11:15 Temperature Pulse Rate 100 H 116 H 100 H Pulse Rate [ From Monitor] Pulse Rate [ Throughout] Respiratory 28 H 30 H Rate Respiratory Rate [ Throughout] Blood Pressure 143/92 126/65 101/56 O2 Sat by Pulse 100 99 Oximetry O2 Sat by Pulse Oximetry [ Anterior Bilateral Throughout] O2 Sat by Pulse Oximetry [ Assessment] O2 Sat by Pulse Oximetry [ Throughout] 02/17/17 02/17/17 02/17/17 11:16 11:30 11:45 Temperature Pulse Rate 117 H 99 H 100 H Pulse Rate [ From Monitor] Pulse Rate [ Throughout] Respiratory 30 H 30 H 31 H Rate Respiratory Rate [ Throughout] Blood Pressure 101/56 101/66 110/74 O2 Sat by Pulse 100 100 100 Oximetry O2 Sat by Pulse Oximetry [ Anterior Bilateral Throughout] O2 Sat by Pulse Oximetry [ Assessment] O2 Sat by Pulse Oximetry [ Throughout] 02/17/17 02/17/17 02/17/17 12:00 12:15 12:16 Temperature Pulse Rate 119 H 109 H 109 H Pulse Rate [ From Monitor] Pulse Rate [ Throughout] Respiratory 32 H 32 H Rate Respiratory Rate [ Throughout] Blood Pressure 110/74 100/63 100/63 O2 Sat by Pulse 100 100 Oximetry O2 Sat by Pulse Oximetry [ Anterior Bilateral Throughout] O2 Sat by Pulse Oximetry [ Assessment] O2 Sat by Pulse Oximetry [ Throughout] 02/17/17 02/17/17 12:30 12:37 Temperature Pulse Rate 105 H 105 H Pulse Rate [ From Monitor] Pulse Rate [ Throughout] Respiratory 33 H Rate Respiratory Rate [ Throughout] Blood Pressure 104/72 104/72 O2 Sat by Pulse 100 Oximetry O2 Sat by Pulse Oximetry [ Anterior Bilateral Throughout] O2 Sat by Pulse Oximetry [ Assessment] O2 Sat by Pulse Oximetry [ Throughout] Constitutional: appears uncomfortable, other (not tracking) Eyes: non-icteric, other (tracheostomy tube in midline of neck) ENT: oropharynx moist, oropharyngeal exudate pre, other (midline tracheostomy tube) Neck: supple, no lymphadenopathy, no JVD, other (no thyromegaly) Effort: mildly labored Ascultation: Bilateral: diminished breath sounds, rhonchi (and referred upper airway sounds) Percussion: Bilateral: not dull Cardiovascular: regular rate and rhythm, other (no rubs / murmurs) Gastrointestinal: hypoactive bowel sounds, soft, non-tender, non-distended, other (RLQ & LUQ stomas with colostomy bags) Integumentary: decubitus ulcer (sacral; stage 4 s/p surgical debridement), other (no rash; no cellulitis; poor turgor) Extremities: no cyanosis, pulses normal, no ischemia or petechiae, edema (1+ bilaterally) Neurologic: pupils equal and round, unable to assess, other (encephalopathic) Psychiatric: other (unable to assess) CBC and BMP: 02/14/17 08:08 02/17/17 06:00 ABG, PT/INR, D-dimer: ABG POC ABG pH 7.436 (7.35-7.45) 01/20/17 12: ABG pH 7.450 pH Units (7.350-7.450) 12/05/16 Unknown POC ABG pCO2 35.3 (35-45) 01/20/17 12:17 ABG pCO2 29.6 mm Hg 12/05/16 Unknown POC ABG pO2 70 (80-105) L 01/20/17 12: ABG pO2 75.2 mm Hg (80.0-90.0) L 12/05/16 Unknown POC ABG HCO3 23.8 01/20/17 12:17 POC ABG Total CO2 25 01/20/17 12:17 POC ABG O2 Sat 94 01/20/17 12: ABG O2 Saturation 96.8 % (95.0-99.0) 12/05/16 Unknown PT/INR, D-dimer PT 15.4 Sec. (12.2-14.9) H 01/13/17 15:50 INR 1.16 (0.87-1.13) H 01/13/17 15:50 Abnormal lab findings: Abnormal Labs 09/03/16 09/03/16 09/03/16 00:03 00:10 00:10 WBC 13.9 H RBC 5.95 H Hgb Hct 44.0 H MCV 74 L MCH 22 L MCHC RDW 17.5 H Plt Count Lymph % (Auto) [place] % (Auto) Lymph # [place] # Baso # Seg Neutrophils % Seg Neuts % (Manual) Lymphocytes % (Manual) 54.0 H Monocytes % (Manual) Eosinophils % (Manual) Basophils % (Manual) Nucleated RBC % Seg Neutrophils # Seg Neutrophils # Man Lymphocytes # (Manual) 7.5 H Monocytes # (Manual) Eosinophils # (Manual) Basophils # (Manual) PT INR Fibrinogen dRVVT Confirm Interp Factor V Activity POC ABG pH POC ABG pCO2 POC ABG pO2 ABG pO2 ABG HCO3 ABG Base Excess ABG Hemoglobin Oxyhemoglobin Sodium Potassium 2.8 L* Chloride Carbon Dioxide 21 L BUN Creatinine 1.7 H Glucose 159 H POC Glucose 177 H Lactic Acid Calcium Phosphorus Magnesium Direct Bilirubin AST ALT Alkaline Phosphatase Lactate Dehydrogenase Troponin T C-Reactive Protein Total Protein Albumin Prealbumin Triglycerides Cholesterol LDL Cholesterol Direct HDL Cholesterol PTH Intact Urine pH Urine WBC (Auto) Urine Creatinine Urine Total Protein Fluid Total Protein Vancomycin Trough Rheumatoid Factor Complement C4 Miscellaneous Test Crossmatch 09/03/16 09/03/16 09/03/16 12:12 15:07 16:20 WBC RBC Hgb Hct MCV MCH MCHC RDW Plt Count Lymph % (Auto) [place] % (Auto) Lymph # [place] # Baso # Seg Neutrophils % Seg Neuts % (Manual) Lymphocytes % (Manual) Monocytes % (Manual) Eosinophils % (Manual) Basophils % (Manual) Nucleated RBC % Seg Neutrophils # Seg Neutrophils # Man Lymphocytes # (Manual) Monocytes # (Manual) Eosinophils # (Manual) Basophils # (Manual) PT INR Fibrinogen dRVVT Confirm Interp Factor V Activity POC ABG pH 7.452 H POC ABG pCO2 POC ABG pO2 ABG pO2 ABG HCO3 ABG Base Excess ABG Hemoglobin Oxyhemoglobin Sodium Potassium Chloride Carbon Dioxide BUN Creatinine Glucose POC Glucose 178 H Lactic Acid Calcium Phosphorus 2.20 L Magnesium 1.60 L Direct Bilirubin AST ALT Alkaline Phosphatase Lactate Dehydrogenase Troponin T C-Reactive Protein Total Protein Albumin Prealbumin Triglycerides Cholesterol LDL Cholesterol Direct HDL Cholesterol PTH Intact Urine pH Urine WBC (Auto) Urine Creatinine Urine Total Protein Fluid Total Protein Vancomycin Trough Rheumatoid Factor Complement C4 Miscellaneous Test Crossmatch 09/03/16 09/03/16 09/03/16 17:57 17:58 23:50 WBC RBC Hgb Hct MCV MCH MCHC RDW Plt Count Lymph % (Auto) [place] % (Auto) Lymph # [place] # Baso # Seg Neutrophils % Seg Neuts % (Manual) Lymphocytes % (Manual) Monocytes % (Manual) Eosinophils % (Manual) Basophils % (Manual) Nucleated RBC % Seg Neutrophils # Seg Neutrophils # Man Lymphocytes # (Manual) Monocytes # (Manual) Eosinophils # (Manual) Basophils # (Manual) PT INR Fibrinogen dRVVT Confirm Interp Factor V Activity POC ABG pH POC ABG pCO2 POC ABG pO2 ABG pO2 ABG HCO3 ABG Base Excess ABG Hemoglobin Oxyhemoglobin Sodium Potassium Chloride Carbon Dioxide BUN Creatinine Glucose POC Glucose 162 H 145 H Lactic Acid Calcium Phosphorus 2.30 L Magnesium Direct Bilirubin AST ALT Alkaline Phosphatase Lactate Dehydrogenase Troponin T C-Reactive Protein Total Protein Albumin Prealbumin Triglycerides Cholesterol LDL Cholesterol Direct HDL Cholesterol PTH Intact Urine pH Urine WBC (Auto) Urine Creatinine Urine Total Protein Fluid Total Protein Vancomycin Trough Rheumatoid Factor Complement C4 Miscellaneous Test Crossmatch 09/04/16 09/04/16 09/04/16 03:31 03:31 05:42 WBC RBC Hgb 9.7 L D Hct MCV 72 L MCH 23 L MCHC RDW 17.5 H Plt Count Lymph % (Auto) 11.1 L [place] % (Auto) Lymph # [place] # Baso # Seg Neutrophils % 84.3 H Seg Neuts % (Manual) Lymphocytes % (Manual) Monocytes % (Manual) Eosinophils % (Manual) Basophils % (Manual) Nucleated RBC % Seg Neutrophils # 8.9 H Seg Neutrophils # Man Lymphocytes # (Manual) Monocytes # (Manual) Eosinophils # (Manual) Basophils # (Manual) PT INR Fibrinogen dRVVT Confirm Interp Factor V Activity POC ABG pH POC ABG pCO2 POC ABG pO2 ABG pO2 ABG HCO3 ABG Base Excess ABG Hemoglobin Oxyhemoglobin Sodium 135 L Potassium 2.9 L* Chloride 97.2 L Carbon Dioxide 19 L BUN Creatinine 1.7 H Glucose 170 H POC Glucose 152 H Lactic Acid Calcium Phosphorus Magnesium Direct Bilirubin AST ALT Alkaline Phosphatase Lactate Dehydrogenase Troponin T C-Reactive Protein Total Protein Albumin Prealbumin Triglycerides 160 H Cholesterol LDL Cholesterol Direct HDL Cholesterol 31 L PTH Intact Urine pH Urine WBC (Auto) Urine Creatinine Urine Total Protein Fluid Total Protein Vancomycin Trough Rheumatoid Factor Complement C4 Miscellaneous Test Crossmatch 09/04/16 09/04/16 09/04/16 11:34 17:46 23:29 WBC RBC Hgb Hct MCV MCH MCHC RDW Plt Count Lymph % (Auto) [place] % (Auto) Lymph # [place] # Baso # Seg Neutrophils % Seg Neuts % (Manual) Lymphocytes % (Manual) Monocytes % (Manual) Eosinophils % (Manual) Basophils % (Manual) Nucleated RBC % Seg Neutrophils # Seg Neutrophils # Man Lymphocytes # (Manual) Monocytes # (Manual) Eosinophils # (Manual) Basophils # (Manual) PT INR Fibrinogen dRVVT Confirm Interp Factor V Activity POC ABG pH POC ABG pCO2 POC ABG pO2 ABG pO2 ABG HCO3 ABG Base Excess ABG Hemoglobin Oxyhemoglobin Sodium Potassium Chloride Carbon Dioxide BUN Creatinine Glucose POC Glucose 165 H 210 H 139 H Lactic Acid Calcium Phosphorus Magnesium Direct Bilirubin AST ALT Alkaline Phosphatase Lactate Dehydrogenase Troponin T C-Reactive Protein Total Protein Albumin Prealbumin Triglycerides Cholesterol LDL Cholesterol Direct HDL Cholesterol PTH Intact Urine pH Urine WBC (Auto) Urine Creatinine Urine Total Protein Fluid Total Protein Vancomycin Trough Rheumatoid Factor Complement C4 Miscellaneous Test Crossmatch 09/05/16 09/05/1609/05/17 04:05 04:05 05:38 WBC RBC Hgb Hct MCV 76 L D MCH 23 L MCHC RDW 17.8 H Plt Count Lymph % (Auto) [place] % (Auto) Lymph # [place] # Baso # Seg Neutrophils % Seg Neuts % (Manual) Lymphocytes % (Manual) Monocytes % (Manual) Eosinophils % (Manual) Basophils % (Manual) Nucleated RBC % Seg Neutrophils # Seg Neutrophils # Man Lymphocytes # (Manual) Monocytes # (Manual) Eosinophils # (Manual) Basophils # (Manual) PT INR Fibrinogen dRVVT Confirm Interp Factor V Activity POC ABG pH POC ABG pCO2 POC ABG pO2 ABG pO2 ABG HCO3 ABG Base Excess ABG Hemoglobin Oxyhemoglobin Sodium 134 L Potassium Chloride Carbon Dioxide 18 L BUN Creatinine 1.8 H Glucose 192 H POC Glucose 175 H Lactic Acid Calcium Phosphorus Magnesium Direct Bilirubin AST ALT Alkaline Phosphatase Lactate Dehydrogenase Troponin T C-Reactive Protein Total Protein Albumin Prealbumin Triglycerides Cholesterol LDL Cholesterol Direct HDL Cholesterol PTH Intact Urine pH Urine WBC (Auto) Urine Creatinine Urine Total Protein Fluid Total Protein Vancomycin Trough Rheumatoid Factor Complement C4 Miscellaneous Test Crossmatch 09/05/16 09/05/16 09/05/16 11:38 17:48 23:22 WBC RBC Hgb Hct MCV MCH MCHC RDW Plt Count Lymph % (Auto) [place] % (Auto) Lymph # [place] # Baso # Seg Neutrophils % Seg Neuts % (Manual) Lymphocytes % (Manual) Monocytes % (Manual) Eosinophils % (Manual) Basophils % (Manual) Nucleated RBC % Seg Neutrophils # Seg Neutrophils # Man Lymphocytes # (Manual) Monocytes # (Manual) Eosinophils # (Manual) Basophils # (Manual) PT INR Fibrinogen dRVVT Confirm Interp Factor V Activity POC ABG pH POC ABG pCO2 POC ABG pO2 ABG pO2 ABG HCO3 ABG Base Excess ABG Hemoglobin Oxyhemoglobin Sodium Potassium Chloride Carbon Dioxide BUN Creatinine Glucose POC Glucose 164 H 186 H 195 H Lactic Acid Calcium Phosphorus Magnesium Direct Bilirubin AST ALT Alkaline Phosphatase Lactate Dehydrogenase Troponin T C-Reactive Protein Total Protein Albumin Prealbumin Triglycerides Cholesterol LDL Cholesterol Direct HDL Cholesterol PTH Intact Urine pH Urine WBC (Auto) Urine Creatinine Urine Total Protein Fluid Total Protein Vancomycin Trough Rheumatoid Factor Complement C4 Miscellaneous Test Crossmatch 09/06/16 09/06/16 09/06/16 04:12 05:59 07:32 WBC RBC Hgb Hct MCV MCH MCHC RDW Plt Count Lymph % (Auto) [place] % (Auto) Lymph # [place] # Baso # Seg Neutrophils % Seg Neuts % (Manual) Lymphocytes % (Manual) Monocytes % (Manual) Eosinophils % (Manual) Basophils % (Manual) Nucleated RBC % Seg Neutrophils # Seg Neutrophils # Man Lymphocytes # (Manual) Monocytes # (Manual) Eosinophils # (Manual) Basophils # (Manual) PT INR Fibrinogen dRVVT Confirm Interp Factor V Activity POC ABG pH 7.514 H POC ABG pCO2 29.1 L POC ABG pO2 72 L ABG pO2 ABG HCO3 ABG Base Excess ABG Hemoglobin Oxyhemoglobin Sodium 133 L Potassium 3.4 L Chloride 94.9 L Carbon Dioxide 19 L BUN 30 H Creatinine 2.1 H Glucose 139 H POC Glucose 146 H Lactic Acid Calcium Phosphorus Magnesium Direct Bilirubin AST ALT Alkaline Phosphatase Lactate Dehydrogenase Troponin T C-Reactive Protein Total Protein Albumin Prealbumin Triglycerides Cholesterol LDL Cholesterol Direct HDL Cholesterol PTH Intact Urine pH Urine WBC (Auto) Urine Creatinine Urine Total Protein Fluid Total Protein Vancomycin Trough Rheumatoid Factor Complement C4 Miscellaneous Test Crossmatch 09/06/16 09/06/16 09/06/16 11:57 17:58 19:02 WBC RBC Hgb Hct MCV MCH MCHC RDW Plt Count Lymph % (Auto) [place] % (Auto) Lymph # [place] # Baso # Seg Neutrophils % Seg Neuts % (Manual) Lymphocytes % (Manual) Monocytes % (Manual) Eosinophils % (Manual) Basophils % (Manual) Nucleated RBC % Seg Neutrophils # Seg Neutrophils # Man Lymphocytes # (Manual) Monocytes # (Manual) Eosinophils # (Manual) Basophils # (Manual) PT INR Fibrinogen dRVVT Confirm Interp Factor V Activity POC ABG pH 7.465 H POC ABG pCO2 32.0 L POC ABG pO2 ABG pO2 ABG HCO3 ABG Base Excess ABG Hemoglobin Oxyhemoglobin Sodium Potassium Chloride Carbon Dioxide BUN Creatinine Glucose POC Glucose 165 H 160 H Lactic Acid Calcium Phosphorus Magnesium Direct Bilirubin AST ALT Alkaline Phosphatase Lactate Dehydrogenase Troponin T C-Reactive Protein Total Protein Albumin Prealbumin Triglycerides Cholesterol LDL Cholesterol Direct HDL Cholesterol PTH Intact Urine pH Urine WBC (Auto) Urine Creatinine Urine Total Protein Fluid Total Protein Vancomycin Trough Rheumatoid Factor Complement C4 Miscellaneous Test Crossmatch 09/06/16 09/07/16 09/07/16 23:45 02:47 02:47 WBC RBC Hgb Hct MCV MCH MCHC RDW Plt Count Lymph % (Auto) [place] % (Auto) Lymph # [place] # Baso # Seg Neutrophils % Seg Neuts % (Manual) Lymphocytes % (Manual) Monocytes % (Manual) Eosinophils % (Manual) Basophils % (Manual) Nucleated RBC % Seg Neutrophils # Seg Neutrophils # Man Lymphocytes # (Manual) Monocytes # (Manual) Eosinophils # (Manual) Basophils # (Manual) PT INR Fibrinogen dRVVT Confirm Interp Factor V Activity POC ABG pH POC ABG pCO2 POC ABG pO2 ABG pO2 ABG HCO3 ABG Base Excess ABG Hemoglobin Oxyhemoglobin Sodium Potassium Chloride Carbon Dioxide BUN Creatinine Glucose POC Glucose 204 H Lactic Acid Calcium Phosphorus Magnesium Direct Bilirubin AST ALT Alkaline Phosphatase Lactate Dehydrogenase Troponin T C-Reactive Protein Total Protein Albumin Prealbumin Triglycerides Cholesterol LDL Cholesterol Direct HDL Cholesterol PTH Intact Urine pH Urine WBC (Auto) 68.0 H Urine Creatinine 106.1 H Urine Total Protein Fluid Total Protein Vancomycin Trough Rheumatoid Factor Complement C4 Miscellaneous Test Crossmatch 09/07/16 09/07/16 09/07/16 04:50 06:19 06:39 WBC RBC Hgb Hct MCV MCH MCHC RDW Plt Count Lymph % (Auto) [place] % (Auto) Lymph # [place] # Baso # Seg Neutrophils % Seg Neuts % (Manual) Lymphocytes % (Manual) Monocytes % (Manual) Eosinophils % (Manual) Basophils % (Manual) Nucleated RBC % Seg Neutrophils # Seg Neutrophils # Man Lymphocytes # (Manual) Monocytes # (Manual) Eosinophils # (Manual) Basophils # (Manual) PT INR Fibrinogen dRVVT Confirm Interp Factor V Activity POC ABG pH 7.457 H POC ABG pCO2 32.1 L POC ABG pO2 76 L ABG pO2 ABG HCO3 ABG Base Excess ABG Hemoglobin Oxyhemoglobin Sodium 132 L Potassium Chloride 94.7 L Carbon Dioxide BUN 53 H Creatinine 2.9 H Glucose 151 H POC Glucose 149 H Lactic Acid Calcium Phosphorus Magnesium Direct Bilirubin AST ALT Alkaline Phosphatase Lactate Dehydrogenase Troponin T C-Reactive Protein Total Protein Albumin Prealbumin Triglycerides Cholesterol LDL Cholesterol Direct HDL Cholesterol PTH Intact Urine pH Urine WBC (Auto) Urine Creatinine Urine Total Protein Fluid Total Protein Vancomycin Trough Rheumatoid Factor Complement C4 Miscellaneous Test Crossmatch 09/07/16 09/07/16 09/07/16 09:20 11:43 11:43 WBC 19.4 H RBC Hgb 8.3 L Hct 26.4 L D MCV 72 L D MCH 22 L MCHC RDW 17.9 H Plt Count Lymph % (Auto) 8.5 L [place] % (Auto) Lymph # [place] # 1.0 H Baso # Seg Neutrophils % 85.8 H Seg Neuts % (Manual) Lymphocytes % (Manual) Monocytes % (Manual) Eosinophils % (Manual) Basophils % (Manual) Nucleated RBC % Seg Neutrophils # 16.6 H Seg Neutrophils # Man Lymphocytes # (Manual) Monocytes # (Manual) Eosinophils # (Manual) Basophils # (Manual) PT INR Fibrinogen dRVVT Confirm Interp Factor V Activity POC ABG pH POC ABG pCO2 POC ABG pO2 ABG pO2 ABG HCO3 ABG Base Excess ABG Hemoglobin Oxyhemoglobin Sodium 134 L Potassium Chloride 97.2 L Carbon Dioxide 20 L BUN 58 H Creatinine 2.9 H Glucose 147 H POC Glucose Lactic Acid Calcium Phosphorus 2.40 L Magnesium 2.40 H Direct Bilirubin AST ALT Alkaline Phosphatase Lactate Dehydrogenase Troponin T C-Reactive Protein Total Protein 5.8 L Albumin 2.2 L Prealbumin Triglycerides Cholesterol LDL Cholesterol Direct HDL Cholesterol PTH Intact Urine pH Urine WBC (Auto) Urine Creatinine Urine Total Protein Fluid Total Protein Vancomycin Trough Rheumatoid Factor Complement C4 58 H Miscellaneous Test Crossmatch 09/07/16 09/07/16 09/07/16 11:50 16:00 17:31 WBC RBC Hgb Hct MCV MCH MCHC RDW Plt Count Lymph % (Auto) [place] % (Auto) Lymph # [place] # Baso # Seg Neutrophils % Seg Neuts % (Manual) Lymphocytes % (Manual) Monocytes % (Manual) Eosinophils % (Manual) Basophils % (Manual) Nucleated RBC % Seg Neutrophils # Seg Neutrophils # Man Lymphocytes # (Manual) Monocytes # (Manual) Eosinophils # (Manual) Basophils # (Manual) PT INR Fibrinogen dRVVT Confirm Interp Factor V Activity POC ABG pH POC ABG pCO2 POC ABG pO2 158 H ABG pO2 ABG HCO3 ABG Base Excess ABG Hemoglobin Oxyhemoglobin Sodium Potassium Chloride Carbon Dioxide BUN Creatinine Glucose POC Glucose 175 H Lactic Acid Calcium Phosphorus Magnesium Direct Bilirubin AST ALT Alkaline Phosphatase Lactate Dehydrogenase Troponin T C-Reactive Protein Total Protein Albumin Prealbumin Triglycerides Cholesterol LDL Cholesterol Direct HDL Cholesterol PTH Intact Urine pH Urine WBC (Auto) Urine Creatinine 66.3 H Urine Total Protein Fluid Total Protein Vancomycin Trough Rheumatoid Factor Complement C4 Miscellaneous Test Crossmatch 09/07/16 09/08/16 09/08/16 23:50 05:46 06:18 WBC 17.8 H RBC 3.58 L Hgb 8.1 L Hct 25.5 L MCV 71 L MCH 23 L MCHC RDW 18.4 H Plt Count Lymph % (Auto) [place] % (Auto) Lymph # [place] # Baso # Seg Neutrophils % Seg Neuts % (Manual) 92.0 H Lymphocytes % (Manual) 6.0 L Monocytes % (Manual) Eosinophils % (Manual) Basophils % (Manual) Nucleated RBC % Seg Neutrophils # Seg Neutrophils # Man 16.4 H Lymphocytes # (Manual) 1.1 L Monocytes # (Manual) Eosinophils # (Manual) Basophils # (Manual) PT INR Fibrinogen dRVVT Confirm Interp Factor V Activity POC ABG pH POC ABG pCO2 34.3 L POC ABG pO2 71 L ABG pO2 ABG HCO3 ABG Base Excess ABG Hemoglobin Oxyhemoglobin Sodium Potassium Chloride Carbon Dioxide BUN Creatinine Glucose POC Glucose 216 H Lactic Acid Calcium Phosphorus Magnesium Direct Bilirubin AST ALT Alkaline Phosphatase Lactate Dehydrogenase Troponin T C-Reactive Protein Total Protein Albumin Prealbumin Triglycerides Cholesterol LDL Cholesterol Direct HDL Cholesterol PTH Intact Urine pH Urine WBC (Auto) Urine Creatinine Urine Total Protein Fluid Total Protein Vancomycin Trough Rheumatoid Factor Complement C4 Miscellaneous Test Crossmatch 09/08/16 09/08/16 09/08/16 06:18 06:51 10:55 WBC RBC Hgb Hct MCV MCH MCHC RDW Plt Count Lymph % (Auto) [place] % (Auto) Lymph # [place] # Baso # Seg Neutrophils % Seg Neuts % (Manual) Lymphocytes % (Manual) Monocytes % (Manual) Eosinophils % (Manual) Basophils % (Manual) Nucleated RBC % Seg Neutrophils # Seg Neutrophils # Man Lymphocytes # (Manual) Monocytes # (Manual) Eosinophils # (Manual) Basophils # (Manual) PT INR Fibrinogen dRVVT Confirm Interp Factor V Activity POC ABG pH POC ABG pCO2 POC ABG pO2 ABG pO2 ABG HCO3 ABG Base Excess ABG Hemoglobin Oxyhemoglobin Sodium 133 L Potassium Chloride 96.9 L Carbon Dioxide 20 L BUN 63 H Creatinine 2.7 H Glucose 195 H POC Glucose 204 H 169 H Lactic Acid Calcium Phosphorus Magnesium Direct Bilirubin AST ALT Alkaline Phosphatase Lactate Dehydrogenase Troponin T C-Reactive Protein Total Protein Albumin Prealbumin Triglycerides Cholesterol LDL Cholesterol Direct HDL Cholesterol PTH Intact Urine pH Urine WBC (Auto) Urine Creatinine Urine Total Protein Fluid Total Protein Vancomycin Trough Rheumatoid Factor Complement C4 Miscellaneous Test Crossmatch 09/08/16 09/08/16 09/08/16 11:48 11:48 11:48 WBC RBC Hgb Hct MCV MCH MCHC RDW Plt Count Lymph % (Auto) [place] % (Auto) Lymph # [place] # Baso # Seg Neutrophils % Seg Neuts % (Manual) Lymphocytes % (Manual) Monocytes % (Manual) Eosinophils % (Manual) Basophils % (Manual) Nucleated RBC % Seg Neutrophils # Seg Neutrophils # Man Lymphocytes # (Manual) Monocytes # (Manual) Eosinophils # (Manual) Basophils # (Manual) PT INR Fibrinogen 750 H dRVVT Confirm Interp Factor V Activity POC ABG pH POC ABG pCO2 POC ABG pO2 ABG pO2 ABG HCO3 ABG Base Excess ABG Hemoglobin Oxyhemoglobin Sodium Potassium Chloride Carbon Dioxide BUN Creatinine Glucose POC Glucose Lactic Acid Calcium Phosphorus Magnesium Direct Bilirubin AST ALT Alkaline Phosphatase Lactate Dehydrogenase Troponin T C-Reactive Protein 15.70 H Total Protein Albumin Prealbumin Triglycerides Cholesterol LDL Cholesterol Direct HDL Cholesterol PTH Intact Urine pH Urine WBC (Auto) Urine Creatinine Urine Total Protein Fluid Total Protein Vancomycin Trough Rheumatoid Factor 24 H Complement C4 Miscellaneous Test Crossmatch 09/08/16 09/08/16 09/09/16 15:35 18:25 00:24 WBC RBC Hgb Hct MCV MCH MCHC RDW Plt Count Lymph % (Auto) [place] % (Auto) Lymph # [place] # Baso # Seg Neutrophils % Seg Neuts % (Manual) Lymphocytes % (Manual) Monocytes % (Manual) Eosinophils % (Manual) Basophils % (Manual) Nucleated RBC % Seg Neutrophils # Seg Neutrophils # Man Lymphocytes # (Manual) Monocytes # (Manual) Eosinophils # (Manual) Basophils # (Manual) PT INR Fibrinogen dRVVT Confirm Interp Factor V Activity 182 H POC ABG pH POC ABG pCO2 POC ABG pO2 ABG pO2 ABG HCO3 ABG Base Excess ABG Hemoglobin Oxyhemoglobin Sodium Potassium Chloride Carbon Dioxide BUN Creatinine Glucose POC Glucose 184 H 216 H Lactic Acid Calcium Phosphorus Magnesium Direct Bilirubin AST ALT Alkaline Phosphatase Lactate Dehydrogenase Troponin T C-Reactive Protein Total Protein Albumin Prealbumin Triglycerides Cholesterol LDL Cholesterol Direct HDL Cholesterol PTH Intact Urine pH Urine WBC (Auto) Urine Creatinine Urine Total Protein Fluid Total Protein Vancomycin Trough Rheumatoid Factor Complement C4 Miscellaneous Test Crossmatch 09/09/16 09/09/16 09/09/16 03:00 03:00 04:04 WBC 27.9 H RBC Hgb 8.7 L Hct 28.1 L MCV 72 L MCH 22 L MCHC RDW 18.4 H Plt Count 485 H Lymph % (Auto) [place] % (Auto) Lymph # [place] # Baso # Seg Neutrophils % Seg Neuts % (Manual) 77.0 H Lymphocytes % (Manual) 9.0 L Monocytes % (Manual) Eosinophils % (Manual) Basophils % (Manual) Nucleated RBC % Seg Neutrophils # Seg Neutrophils # Man 21.5 H Lymphocytes # (Manual) Monocytes # (Manual) 2.0 H Eosinophils # (Manual) Basophils # (Manual) PT INR Fibrinogen dRVVT Confirm Interp Factor V Activity POC ABG pH POC ABG pCO2 POC ABG pO2 121 H ABG pO2 ABG HCO3 ABG Base Excess ABG Hemoglobin Oxyhemoglobin Sodium 135 L Potassium Chloride 96.3 L Carbon Dioxide 21 L BUN 83 H Creatinine 3.0 H Glucose 135 H POC Glucose Lactic Acid Calcium Phosphorus Magnesium Direct Bilirubin AST ALT Alkaline Phosphatase Lactate Dehydrogenase Troponin T C-Reactive Protein Total Protein Albumin Prealbumin Triglycerides Cholesterol LDL Cholesterol Direct HDL Cholesterol PTH Intact Urine pH Urine WBC (Auto) Urine Creatinine Urine Total Protein Fluid Total Protein Vancomycin Trough Rheumatoid Factor Complement C4 Miscellaneous Test Crossmatch 09/09/16 09/09/16 09/09/16 05:41 11:55 14:13 WBC RBC Hgb Hct MCV MCH MCHC RDW Plt Count Lymph % (Auto) [place] % (Auto) Lymph # [place] # Baso # Seg Neutrophils % Seg Neuts % (Manual) Lymphocytes % (Manual) Monocytes % (Manual) Eosinophils % (Manual) Basophils % (Manual) Nucleated RBC % Seg Neutrophils # Seg Neutrophils # Man Lymphocytes # (Manual) Monocytes # (Manual) Eosinophils # (Manual) Basophils # (Manual) PT INR Fibrinogen dRVVT Confirm Interp Factor V Activity POC ABG pH POC ABG pCO2 POC ABG pO2 ABG pO2 ABG HCO3 ABG Base Excess ABG Hemoglobin Oxyhemoglobin Sodium Potassium Chloride Carbon Dioxide BUN Creatinine Glucose POC Glucose 155 H 186 H Lactic Acid Calcium Phosphorus Magnesium Direct Bilirubin AST ALT Alkaline Phosphatase Lactate Dehydrogenase Troponin T C-Reactive Protein Total Protein Albumin Prealbumin Triglycerides Cholesterol LDL Cholesterol Direct HDL Cholesterol PTH Intact Urine pH Urine WBC (Auto) 25.0 H Urine Creatinine Urine Total Protein Fluid Total Protein Vancomycin Trough Rheumatoid Factor Complement C4 Miscellaneous Test Crossmatch 09/09/16 09/09/16 09/10/16 17:33 23:13 05:09 WBC RBC Hgb Hct MCV MCH MCHC RDW Plt Count Lymph % (Auto) [place] % (Auto) Lymph # [place] # Baso # Seg Neutrophils % Seg Neuts % (Manual) Lymphocytes % (Manual) Monocytes % (Manual) Eosinophils % (Manual) Basophils % (Manual) Nucleated RBC % Seg Neutrophils # Seg Neutrophils # Man Lymphocytes # (Manual) Monocytes # (Manual) Eosinophils # (Manual) Basophils # (Manual) PT INR Fibrinogen dRVVT Confirm Interp Factor V Activity POC ABG pH POC ABG pCO2 POC ABG pO2 74 L ABG pO2 ABG HCO3 ABG Base Excess ABG Hemoglobin Oxyhemoglobin Sodium Potassium Chloride Carbon Dioxide BUN Creatinine Glucose POC Glucose 211 H 215 H Lactic Acid Calcium Phosphorus Magnesium Direct Bilirubin AST ALT Alkaline Phosphatase Lactate Dehydrogenase Troponin T C-Reactive Protein Total Protein Albumin Prealbumin Triglycerides Cholesterol LDL Cholesterol Direct HDL Cholesterol PTH Intact Urine pH Urine WBC (Auto) Urine Creatinine Urine Total Protein Fluid Total Protein Vancomycin Trough Rheumatoid Factor Complement C4 Miscellaneous Test Crossmatch 09/10/16 09/10/16 09/10/16 05:17 05:17 11:31 WBC 15.8 H RBC 3.25 L Hgb 7.3 L Hct 22.9 L MCV 71 L MCH 23 L MCHC RDW 18.4 H Plt Count Lymph % (Auto) [place] % (Auto) Lymph # [place] # Baso # Seg Neutrophils % Seg Neuts % (Manual) 91.0 H Lymphocytes % (Manual) 4.0 L Monocytes % (Manual) Eosinophils % (Manual) Basophils % (Manual) Nucleated RBC % Seg Neutrophils # Seg Neutrophils # Man 14.4 H Lymphocytes # (Manual) 0.6 L Monocytes # (Manual) Eosinophils # (Manual) Basophils # (Manual) PT INR Fibrinogen dRVVT Confirm Interp Factor V Activity POC ABG pH POC ABG pCO2 POC ABG pO2 ABG pO2 ABG HCO3 ABG Base Excess ABG Hemoglobin Oxyhemoglobin Sodium Potassium Chloride Carbon Dioxide 21 L BUN 93 H Creatinine 2.9 H Glucose 146 H POC Glucose 188 H Lactic Acid Calcium 8.1 L Phosphorus Magnesium Direct Bilirubin AST ALT Alkaline Phosphatase Lactate Dehydrogenase Troponin T C-Reactive Protein Total Protein Albumin Prealbumin Triglycerides Cholesterol LDL Cholesterol Direct HDL Cholesterol PTH Intact Urine pH Urine WBC (Auto) Urine Creatinine Urine Total Protein Fluid Total Protein Vancomycin Trough Rheumatoid Factor Complement C4 Miscellaneous Test Crossmatch 09/10/16 09/10/16 09/10/16 13:17 17:20 23:32 WBC RBC Hgb Hct MCV MCH MCHC RDW Plt Count Lymph % (Auto) [place] % (Auto) Lymph # [place] # Baso # Seg Neutrophils % Seg Neuts % (Manual) Lymphocytes % (Manual) Monocytes % (Manual) Eosinophils % (Manual) Basophils % (Manual) Nucleated RBC % Seg Neutrophils # Seg Neutrophils # Man Lymphocytes # (Manual) Monocytes # (Manual) Eosinophils # (Manual) Basophils # (Manual) PT INR Fibrinogen dRVVT Confirm Interp Factor V Activity POC ABG pH POC ABG pCO2 POC ABG pO2 ABG pO2 ABG HCO3 ABG Base Excess ABG Hemoglobin Oxyhemoglobin Sodium Potassium Chloride Carbon Dioxide BUN Creatinine Glucose POC Glucose 199 H 186 H Lactic Acid Calcium Phosphorus Magnesium Direct Bilirubin AST ALT Alkaline Phosphatase Lactate Dehydrogenase Troponin T C-Reactive Protein Total Protein Albumin Prealbumin Triglycerides Cholesterol LDL Cholesterol Direct HDL Cholesterol PTH Intact Urine pH Urine WBC (Auto) Urine Creatinine Urine Total Protein Fluid Total Protein Vancomycin Trough Rheumatoid Factor Complement C4 Miscellaneous Test Crossmatch See Detail 09/11/16 09/11/16 09/11/16 05:10 05:10 05:17 WBC 28.4 H RBC Hgb 9.2 L Hct 29.3 L D MCV 73 L MCH 23 L MCHC RDW 18.9 H Plt Count 452 H Lymph % (Auto) [place] % (Auto) Lymph # [place] # Baso # Seg Neutrophils % Seg Neuts % (Manual) 89.5 H Lymphocytes % (Manual) 2.0 L Monocytes % (Manual) Eosinophils % (Manual) Basophils % (Manual) Nucleated RBC % Seg Neutrophils # Seg Neutrophils # Man 25.4 H Lymphocytes # (Manual) 0.6 L Monocytes # (Manual) 1.3 H Eosinophils # (Manual) Basophils # (Manual) PT INR Fibrinogen dRVVT Confirm Interp Factor V Activity POC ABG pH POC ABG pCO2 POC ABG pO2 ABG pO2 ABG HCO3 ABG Base Excess ABG Hemoglobin Oxyhemoglobin Sodium 136 L Potassium Chloride Carbon Dioxide 18 L BUN 107 H Creatinine 2.6 H Glucose 187 H POC Glucose 230 H Lactic Acid Calcium 8.3 L Phosphorus Magnesium Direct Bilirubin AST ALT Alkaline Phosphatase Lactate Dehydrogenase Troponin T C-Reactive Protein Total Protein Albumin Prealbumin Triglycerides Cholesterol LDL Cholesterol Direct HDL Cholesterol PTH Intact Urine pH Urine WBC (Auto) Urine Creatinine Urine Total Protein Fluid Total Protein Vancomycin Trough Rheumatoid Factor Complement C4 Miscellaneous Test Crossmatch 09/11/16 09/11/16 09/11/16 05:55 12:02 17:32 WBC RBC Hgb Hct MCV MCH MCHC RDW Plt Count Lymph % (Auto) [place] % (Auto) Lymph # [place] # Baso # Seg Neutrophils % Seg Neuts % (Manual) Lymphocytes % (Manual) Monocytes % (Manual) Eosinophils % (Manual) Basophils % (Manual) Nucleated RBC % Seg Neutrophils # Seg Neutrophils # Man Lymphocytes # (Manual) Monocytes # (Manual) Eosinophils # (Manual) Basophils # (Manual) PT INR Fibrinogen dRVVT Confirm Interp Factor V Activity POC ABG pH POC ABG pCO2 33.8 L POC ABG pO2 ABG pO2 ABG HCO3 ABG Base Excess ABG Hemoglobin Oxyhemoglobin Sodium Potassium Chloride Carbon Dioxide BUN Creatinine Glucose POC Glucose 191 H 239 H Lactic Acid Calcium Phosphorus Magnesium Direct Bilirubin AST ALT Alkaline Phosphatase Lactate Dehydrogenase Troponin T C-Reactive Protein Total Protein Albumin Prealbumin Triglycerides Cholesterol LDL Cholesterol Direct HDL Cholesterol PTH Intact Urine pH Urine WBC (Auto) Urine Creatinine Urine Total Protein Fluid Total Protein Vancomycin Trough Rheumatoid Factor Complement C4 Miscellaneous Test Crossmatch 09/11/16 09/12/16 09/12/16 23:52 05:09 05:32 WBC RBC Hgb Hct MCV MCH MCHC RDW Plt Count Lymph % (Auto) [place] % (Auto) Lymph # [place] # Baso # Seg Neutrophils % Seg Neuts % (Manual) Lymphocytes % (Manual) Monocytes % (Manual) Eosinophils % (Manual) Basophils % (Manual) Nucleated RBC % Seg Neutrophils # Seg Neutrophils # Man Lymphocytes # (Manual) Monocytes # (Manual) Eosinophils # (Manual) Basophils # (Manual) PT INR Fibrinogen dRVVT Confirm Interp Factor V Activity POC ABG pH POC ABG pCO2 34.6 L POC ABG pO2 ABG pO2 ABG HCO3 ABG Base Excess ABG Hemoglobin Oxyhemoglobin Sodium Potassium Chloride Carbon Dioxide BUN Creatinine Glucose POC Glucose 265 H 184 H Lactic Acid Calcium Phosphorus Magnesium Direct Bilirubin AST ALT Alkaline Phosphatase Lactate Dehydrogenase Troponin T C-Reactive Protein Total Protein Albumin Prealbumin Triglycerides Cholesterol LDL Cholesterol Direct HDL Cholesterol PTH Intact Urine pH Urine WBC (Auto) Urine Creatinine Urine Total Protein Fluid Total Protein Vancomycin Trough Rheumatoid Factor Complement C4 Miscellaneous Test Crossmatch 09/12/16 09/12/16 09/12/16 06:45 06:45 07:22 WBC 31.7 H RBC 3.54 L Hgb 8.3 L Hct 25.9 L MCV 73 L MCH 23 L MCHC RDW 18.9 H Plt Count Lymph % (Auto) [place] % (Auto) Lymph # [place] # Baso # Seg Neutrophils % Seg Neuts % (Manual) 88.5 H Lymphocytes % (Manual) 4.5 L Monocytes % (Manual) Eosinophils % (Manual) Basophils % (Manual) Nucleated RBC % Seg Neutrophils # Seg Neutrophils # Man 28.1 H Lymphocytes # (Manual) Monocytes # (Manual) 1.0 H Eosinophils # (Manual) Basophils # (Manual) PT INR Fibrinogen dRVVT Confirm Interp Factor V Activity POC ABG pH POC ABG pCO2 POC ABG pO2 ABG pO2 ABG HCO3 ABG Base Excess ABG Hemoglobin Oxyhemoglobin Sodium Potassium Chloride Carbon Dioxide 20 L BUN 115 H Creatinine 2.7 H Glucose 165 H POC Glucose Lactic Acid Calcium 8.0 L Phosphorus Magnesium Direct Bilirubin AST ALT Alkaline Phosphatase Lactate Dehydrogenase Troponin T C-Reactive Protein Total Protein Albumin Prealbumin Triglycerides 217 H Cholesterol LDL Cholesterol Direct HDL Cholesterol PTH Intact Urine pH Urine WBC (Auto) Urine Creatinine Urine Total Protein Fluid Total Protein Vancomycin Trough Rheumatoid Factor Complement C4 Miscellaneous Test Crossmatch 09/12/16 09/12/16 09/12/16 07:22 09:59 12:21 WBC RBC Hgb Hct MCV MCH MCHC RDW Plt Count Lymph % (Auto) [place] % (Auto) Lymph # [place] # Baso # Seg Neutrophils % Seg Neuts % (Manual) Lymphocytes % (Manual) Monocytes % (Manual) Eosinophils % (Manual) Basophils % (Manual) Nucleated RBC % Seg Neutrophils # Seg Neutrophils # Man Lymphocytes # (Manual) Monocytes # (Manual) Eosinophils # (Manual) Basophils # (Manual) PT INR Fibrinogen dRVVT Confirm Interp Positive H Factor V Activity POC ABG pH POC ABG pCO2 POC ABG pO2 ABG pO2 ABG HCO3 ABG Base Excess ABG Hemoglobin Oxyhemoglobin Sodium Potassium Chloride Carbon Dioxide BUN Creatinine Glucose POC Glucose 224 H Lactic Acid Calcium Phosphorus Magnesium Direct Bilirubin AST ALT Alkaline Phosphatase Lactate Dehydrogenase Troponin T C-Reactive Protein 1.70 H Total Protein Albumin Prealbumin Triglycerides Cholesterol LDL Cholesterol Direct HDL Cholesterol PTH Intact Urine pH Urine WBC (Auto) Urine Creatinine Urine Total Protein Fluid Total Protein Vancomycin Trough Rheumatoid Factor Complement C4 Miscellaneous Test Crossmatch 09/12/16 09/12/16 09/13/16 16:51 23:28 04:00 WBC 45.0 H* RBC Hgb 9.4 L Hct MCV 75 L MCH 23 L MCHC RDW 19.0 H Plt Count 470 H Lymph % (Auto) [place] % (Auto) Lymph # [place] # Baso # Seg Neutrophils % Seg Neuts % (Manual) 89.0 H Lymphocytes % (Manual) 5.0 L Monocytes % (Manual) Eosinophils % (Manual) Basophils % (Manual) Nucleated RBC % Seg Neutrophils # Seg Neutrophils # Man 40.1 H Lymphocytes # (Manual) Monocytes # (Manual) Eosinophils # (Manual) Basophils # (Manual) PT INR Fibrinogen dRVVT Confirm Interp Factor V Activity POC ABG pH POC ABG pCO2 POC ABG pO2 ABG pO2 ABG HCO3 ABG Base Excess ABG Hemoglobin Oxyhemoglobin Sodium Potassium Chloride Carbon Dioxide BUN Creatinine Glucose POC Glucose 169 H 150 H Lactic Acid Calcium Phosphorus Magnesium Direct Bilirubin AST ALT Alkaline Phosphatase Lactate Dehydrogenase Troponin T C-Reactive Protein Total Protein Albumin Prealbumin Triglycerides Cholesterol LDL Cholesterol Direct HDL Cholesterol PTH Intact Urine pH Urine WBC (Auto) Urine Creatinine Urine Total Protein Fluid Total Protein Vancomycin Trough Rheumatoid Factor Complement C4 Miscellaneous Test Crossmatch 09/13/16 09/13/16 09/13/16 04:00 11:26 17:31 WBC RBC Hgb Hct MCV MCH MCHC RDW Plt Count Lymph % (Auto) [place] % (Auto) Lymph # [place] # Baso # Seg Neutrophils % Seg Neuts % (Manual) Lymphocytes % (Manual) Monocytes % (Manual) Eosinophils % (Manual) Basophils % (Manual) Nucleated RBC % Seg Neutrophils # Seg Neutrophils # Man Lymphocytes # (Manual) Monocytes # (Manual) Eosinophils # (Manual) Basophils # (Manual) PT INR Fibrinogen dRVVT Confirm Interp Factor V Activity POC ABG pH POC ABG pCO2 POC ABG pO2 ABG pO2 ABG HCO3 ABG Base Excess ABG Hemoglobin Oxyhemoglobin Sodium Potassium Chloride Carbon Dioxide 20 L BUN 116 H Creatinine 3.0 H Glucose 172 H POC Glucose 140 H 183 H Lactic Acid Calcium Phosphorus Magnesium Direct Bilirubin AST ALT Alkaline Phosphatase Lactate Dehydrogenase Troponin T C-Reactive Protein Total Protein 6.2 L Albumin 2.9 L Prealbumin Triglycerides Cholesterol LDL Cholesterol Direct HDL Cholesterol PTH Intact Urine pH Urine WBC (Auto) Urine Creatinine Urine Total Protein Fluid Total Protein Vancomycin Trough Rheumatoid Factor Complement C4 Miscellaneous Test Crossmatch 09/13/16 09/14/1609/14/17 23:23 04:06 04:07 WBC 29.4 H RBC Hgb 8.9 L Hct 27.3 L MCV 75 L MCH 24 L MCHC RDW 19.1 H Plt Count Lymph % (Auto) [place] % (Auto) Lymph # [place] # Baso # Seg Neutrophils % Seg Neuts % (Manual) 84.0 H Lymphocytes % (Manual) 6.0 L Monocytes % (Manual) 9.0 H Eosinophils % (Manual) Basophils % (Manual) Nucleated RBC % Seg Neutrophils # Seg Neutrophils # Man 24.7 H Lymphocytes # (Manual) Monocytes # (Manual) 2.6 H Eosinophils # (Manual) Basophils # (Manual) PT INR Fibrinogen dRVVT Confirm Interp Factor V Activity POC ABG pH 7.342 L POC ABG pCO2 POC ABG pO2 116 H ABG pO2 ABG HCO3 ABG Base Excess ABG Hemoglobin Oxyhemoglobin Sodium Potassium Chloride Carbon Dioxide BUN Creatinine Glucose POC Glucose 154 H Lactic Acid Calcium Phosphorus Magnesium Direct Bilirubin AST ALT Alkaline Phosphatase Lactate Dehydrogenase Troponin T C-Reactive Protein Total Protein Albumin Prealbumin Triglycerides Cholesterol LDL Cholesterol Direct HDL Cholesterol PTH Intact Urine pH Urine WBC (Auto) Urine Creatinine Urine Total Protein Fluid Total Protein Vancomycin Trough Rheumatoid Factor Complement C4 Miscellaneous Test Crossmatch 09/14/16 09/14/16 09/14/16 04:07 05:29 12:19 WBC RBC Hgb Hct MCV MCH MCHC RDW Plt Count Lymph % (Auto) [place] % (Auto) Lymph # [place] # Baso # Seg Neutrophils % Seg Neuts % (Manual) Lymphocytes % (Manual) Monocytes % (Manual) Eosinophils % (Manual) Basophils % (Manual) Nucleated RBC % Seg Neutrophils # Seg Neutrophils # Man Lymphocytes # (Manual) Monocytes # (Manual) Eosinophils # (Manual) Basophils # (Manual) PT INR Fibrinogen dRVVT Confirm Interp Factor V Activity POC ABG pH POC ABG pCO2 POC ABG pO2 ABG pO2 ABG HCO3 ABG Base Excess ABG Hemoglobin Oxyhemoglobin Sodium 136 L Potassium Chloride Carbon Dioxide 18 L BUN 121 H Creatinine 2.8 H Glucose 214 H POC Glucose 239 H 181 H Lactic Acid Calcium Phosphorus Magnesium Direct Bilirubin AST ALT Alkaline Phosphatase Lactate Dehydrogenase Troponin T C-Reactive Protein Total Protein Albumin Prealbumin Triglycerides Cholesterol LDL Cholesterol Direct HDL Cholesterol PTH Intact Urine pH Urine WBC (Auto) Urine Creatinine Urine Total Protein Fluid Total Protein Vancomycin Trough Rheumatoid Factor Complement C4 Miscellaneous Test Crossmatch 09/14/16 09/14/16 09/15/16 18:12 23:37 05:00 WBC 26.1 H RBC 3.05 L Hgb 7.2 L Hct 22.9 L MCV 75 L MCH 24 L MCHC RDW 19.0 H Plt Count Lymph % (Auto) [place] % (Auto) Lymph # [place] # Baso # Seg Neutrophils % Seg Neuts % (Manual) Lymphocytes % (Manual) Monocytes % (Manual) Eosinophils % (Manual) Basophils % (Manual) Nucleated RBC % Seg Neutrophils # Seg Neutrophils # Man Lymphocytes # (Manual) Monocytes # (Manual) Eosinophils # (Manual) Basophils # (Manual) PT INR Fibrinogen dRVVT Confirm Interp Factor V Activity POC ABG pH POC ABG pCO2 POC ABG pO2 ABG pO2 ABG HCO3 ABG Base Excess ABG Hemoglobin Oxyhemoglobin Sodium Potassium Chloride Carbon Dioxide BUN Creatinine Glucose POC Glucose 266 H 154 H Lactic Acid Calcium Phosphorus Magnesium Direct Bilirubin AST ALT Alkaline Phosphatase Lactate Dehydrogenase Troponin T C-Reactive Protein Total Protein Albumin Prealbumin Triglycerides Cholesterol LDL Cholesterol Direct HDL Cholesterol PTH Intact Urine pH Urine WBC (Auto) Urine Creatinine Urine Total Protein Fluid Total Protein Vancomycin Trough Rheumatoid Factor Complement C4 Miscellaneous Test Crossmatch 09/15/16 09/15/16 09/15/16 05:00 05:17 12:45 WBC RBC Hgb Hct MCV MCH MCHC RDW Plt Count Lymph % (Auto) [place] % (Auto) Lymph # [place] # Baso # Seg Neutrophils % Seg Neuts % (Manual) Lymphocytes % (Manual) Monocytes % (Manual) Eosinophils % (Manual) Basophils % (Manual) Nucleated RBC % Seg Neutrophils # Seg Neutrophils # Man Lymphocytes # (Manual) Monocytes # (Manual) Eosinophils # (Manual) Basophils # (Manual) PT INR Fibrinogen dRVVT Confirm Interp Factor V Activity POC ABG pH POC ABG pCO2 POC ABG pO2 ABG pO2 ABG HCO3 ABG Base Excess ABG Hemoglobin Oxyhemoglobin Sodium Potassium 5.2 H Chloride Carbon Dioxide 18 L BUN 139 H Creatinine 3.7 H Glucose 227 H POC Glucose 226 H 244 H Lactic Acid Calcium 8.3 L Phosphorus Magnesium Direct Bilirubin AST ALT Alkaline Phosphatase Lactate Dehydrogenase Troponin T C-Reactive Protein Total Protein Albumin Prealbumin Triglycerides Cholesterol LDL Cholesterol Direct HDL Cholesterol PTH Intact Urine pH Urine WBC (Auto) Urine Creatinine Urine Total Protein Fluid Total Protein Vancomycin Trough Rheumatoid Factor Complement C4 Miscellaneous Test Crossmatch 09/15/16 09/15/16 09/15/16 14:32 17:33 23:35 WBC RBC Hgb Hct MCV MCH MCHC RDW Plt Count Lymph % (Auto) [place] % (Auto) Lymph # [place] # Baso # Seg Neutrophils % Seg Neuts % (Manual) Lymphocytes % (Manual) Monocytes % (Manual) Eosinophils % (Manual) Basophils % (Manual) Nucleated RBC % Seg Neutrophils # Seg Neutrophils # Man Lymphocytes # (Manual) Monocytes # (Manual) Eosinophils # (Manual) Basophils # (Manual) PT INR Fibrinogen dRVVT Confirm Interp Factor V Activity POC ABG pH POC ABG pCO2 27.7 L POC ABG pO2 120 H ABG pO2 ABG HCO3 ABG Base Excess ABG Hemoglobin Oxyhemoglobin Sodium Potassium Chloride Carbon Dioxide BUN Creatinine Glucose POC Glucose 232 H 167 H Lactic Acid Calcium Phosphorus Magnesium Direct Bilirubin AST ALT Alkaline Phosphatase Lactate Dehydrogenase Troponin T C-Reactive Protein Total Protein Albumin Prealbumin Triglycerides Cholesterol LDL Cholesterol Direct HDL Cholesterol PTH Intact Urine pH Urine WBC (Auto) Urine Creatinine Urine Total Protein Fluid Total Protein Vancomycin Trough Rheumatoid Factor Complement C4 Miscellaneous Test Crossmatch 09/16/16 09/16/16 09/16/16 03:58 10:27 10:27 WBC 19.0 H RBC 2.77 L Hgb 6.5 L Hct 20.9 L MCV 76 L MCH 23 L MCHC RDW 19.3 H Plt Count Lymph % (Auto) 11.0 L [place] % (Auto) Lymph # [place] # 1.1 H Baso # Seg Neutrophils % 82.5 H Seg Neuts % (Manual) Lymphocytes % (Manual) Monocytes % (Manual) Eosinophils % (Manual) Basophils % (Manual) Nucleated RBC % Seg Neutrophils # 15.7 H Seg Neutrophils # Man Lymphocytes # (Manual) Monocytes # (Manual) Eosinophils # (Manual) Basophils # (Manual) PT INR Fibrinogen dRVVT Confirm Interp Factor V Activity POC ABG pH POC ABG pCO2 POC ABG pO2 ABG pO2 ABG HCO3 ABG Base Excess ABG Hemoglobin Oxyhemoglobin Sodium Potassium Chloride 109.3 H Carbon Dioxide 18 L BUN 139 H Creatinine 4.1 H Glucose 144 H POC Glucose 146 H Lactic Acid Calcium 8.1 L Phosphorus Magnesium Direct Bilirubin AST ALT Alkaline Phosphatase Lactate Dehydrogenase Troponin T C-Reactive Protein Total Protein Albumin Prealbumin Triglycerides Cholesterol LDL Cholesterol Direct HDL Cholesterol PTH Intact Urine pH Urine WBC (Auto) Urine Creatinine Urine Total Protein Fluid Total Protein Vancomycin Trough Rheumatoid Factor Complement C4 Miscellaneous Test Crossmatch 09/16/16 09/16/16 09/16/16 12:04 12:10 13:55 WBC RBC Hgb Hct MCV MCH MCHC RDW Plt Count Lymph % (Auto) [place] % (Auto) Lymph # [place] # Baso # Seg Neutrophils % Seg Neuts % (Manual) Lymphocytes % (Manual) Monocytes % (Manual) Eosinophils % (Manual) Basophils % (Manual) Nucleated RBC % Seg Neutrophils # Seg Neutrophils # Man Lymphocytes # (Manual) Monocytes # (Manual) Eosinophils # (Manual) Basophils # (Manual) PT INR Fibrinogen dRVVT Confirm Interp Factor V Activity POC ABG pH POC ABG pCO2 32.9 L POC ABG pO2 ABG pO2 ABG HCO3 ABG Base Excess ABG Hemoglobin Oxyhemoglobin Sodium Potassium Chloride Carbon Dioxide BUN Creatinine Glucose POC Glucose 185 H Lactic Acid Calcium Phosphorus Magnesium Direct Bilirubin AST ALT Alkaline Phosphatase Lactate Dehydrogenase Troponin T C-Reactive Protein Total Protein Albumin Prealbumin Triglycerides Cholesterol LDL Cholesterol Direct HDL Cholesterol PTH Intact Urine pH Urine WBC (Auto) Urine Creatinine Urine Total Protein Fluid Total Protein Vancomycin Trough Rheumatoid Factor Complement C4 Miscellaneous Test Crossmatch See Detail 09/16/16 09/16/16 09/16/16 17:55 19:19 23:48 WBC RBC Hgb Hct MCV MCH MCHC RDW Plt Count Lymph % (Auto) [place] % (Auto) Lymph # [place] # Baso # Seg Neutrophils % Seg Neuts % (Manual) Lymphocytes % (Manual) Monocytes % (Manual) Eosinophils % (Manual) Basophils % (Manual) Nucleated RBC % Seg Neutrophils # Seg Neutrophils # Man Lymphocytes # (Manual) Monocytes # (Manual) Eosinophils # (Manual) Basophils # (Manual) PT INR Fibrinogen dRVVT Confirm Interp Factor V Activity POC ABG pH POC ABG pCO2 POC ABG pO2 ABG pO2 ABG HCO3 ABG Base Excess ABG Hemoglobin Oxyhemoglobin Sodium Potassium Chloride Carbon Dioxide BUN Creatinine Glucose POC Glucose 222 H 107 H Lactic Acid Calcium Phosphorus Magnesium Direct Bilirubin AST ALT Alkaline Phosphatase Lactate Dehydrogenase Troponin T C-Reactive Protein Total Protein Albumin Prealbumin Triglycerides Cholesterol LDL Cholesterol Direct HDL Cholesterol PTH Intact Urine pH Urine WBC (Auto) Urine Creatinine 47.4 H Urine Total Protein 16 H Fluid Total Protein Vancomycin Trough Rheumatoid Factor Complement C4 Miscellaneous Test Crossmatch 0709/17/[id number] 09/17/16 03:45 03:45 04:55 WBC 19.6 H RBC 3.41 L Hgb 8.5 L Hct 26.7 L MCV 78 L MCH 25 L MCHC RDW 19.9 H Plt Count Lymph % (Auto) 9.3 L [place] % (Auto) Lymph # [place] # 1.2 H Baso # Seg Neutrophils % 83.9 H Seg Neuts % (Manual) Lymphocytes % (Manual) Monocytes % (Manual) Eosinophils % (Manual) Basophils % (Manual) Nucleated RBC % Seg Neutrophils # 16.4 H Seg Neutrophils # Man Lymphocytes # (Manual) Monocytes # (Manual) Eosinophils # (Manual) Basophils # (Manual) PT INR Fibrinogen dRVVT Confirm Interp Factor V Activity POC ABG pH POC ABG pCO2 POC ABG pO2 ABG pO2 ABG HCO3 ABG Base Excess ABG Hemoglobin Oxyhemoglobin Sodium 146 H Potassium 5.1 H Chloride 110.9 H Carbon Dioxide 16 L BUN 146 H Creatinine 4.0 H Glucose 108 H POC Glucose 133 H Lactic Acid Calcium Phosphorus Magnesium 3.00 H Direct Bilirubin AST ALT Alkaline Phosphatase Lactate Dehydrogenase Troponin T C-Reactive Protein Total Protein Albumin Prealbumin Triglycerides Cholesterol LDL Cholesterol Direct HDL Cholesterol PTH Intact Urine pH Urine WBC (Auto) Urine Creatinine Urine Total Protein Fluid Total Protein Vancomycin Trough Rheumatoid Factor Complement C4 Miscellaneous Test Crossmatch 09/17/16 09/17/16 09/17/16 11:15 17:33 23:47 WBC RBC Hgb Hct MCV MCH MCHC RDW Plt Count Lymph % (Auto) [place] % (Auto) Lymph # [place] # Baso # Seg Neutrophils % Seg Neuts % (Manual) Lymphocytes % (Manual) Monocytes % (Manual) Eosinophils % (Manual) Basophils % (Manual) Nucleated RBC % Seg Neutrophils # Seg Neutrophils # Man Lymphocytes # (Manual) Monocytes # (Manual) Eosinophils # (Manual) Basophils # (Manual) PT INR Fibrinogen dRVVT Confirm Interp Factor V Activity POC ABG pH POC ABG pCO2 POC ABG pO2 ABG pO2 ABG HCO3 ABG Base Excess ABG Hemoglobin Oxyhemoglobin Sodium Potassium Chloride Carbon Dioxide BUN Creatinine Glucose POC Glucose 176 H 246 H 148 H Lactic Acid Calcium Phosphorus Magnesium Direct Bilirubin AST ALT Alkaline Phosphatase Lactate Dehydrogenase Troponin T C-Reactive Protein Total Protein Albumin Prealbumin Triglycerides Cholesterol LDL Cholesterol Direct HDL Cholesterol PTH Intact Urine pH Urine WBC (Auto) Urine Creatinine Urine Total Protein Fluid Total Protein Vancomycin Trough Rheumatoid Factor Complement C4 Miscellaneous Test Crossmatch 09/18/16 09/18/16 09/18/16 05:33 08:31 08:31 WBC 18.0 H RBC 3.17 L Hgb 9.0 L Hct 25.7 L MCV MCH MCHC 35 H RDW 20.4 H Plt Count Lymph % (Auto) [place] % (Auto) Lymph # [place] # Baso # Seg Neutrophils % Seg Neuts % (Manual) Lymphocytes % (Manual) Monocytes % (Manual) Eosinophils % (Manual) Basophils % (Manual) Nucleated RBC % Seg Neutrophils # Seg Neutrophils # Man Lymphocytes # (Manual) Monocytes # (Manual) Eosinophils # (Manual) Basophils # (Manual) PT INR Fibrinogen dRVVT Confirm Interp Factor V Activity POC ABG pH POC ABG pCO2 POC ABG pO2 ABG pO2 ABG HCO3 ABG Base Excess ABG Hemoglobin Oxyhemoglobin Sodium Potassium Chloride Carbon Dioxide 15 L BUN 124 H Creatinine 3.8 H Glucose POC Glucose 120 H Lactic Acid Calcium 8.1 L Phosphorus Magnesium Direct Bilirubin AST ALT Alkaline Phosphatase Lactate Dehydrogenase Troponin T C-Reactive Protein Total Protein Albumin Prealbumin Triglycerides Cholesterol LDL Cholesterol Direct HDL Cholesterol PTH Intact Urine pH Urine WBC (Auto) Urine Creatinine Urine Total Protein Fluid Total Protein Vancomycin Trough Rheumatoid Factor Complement C4 Miscellaneous Test Crossmatch 09/18/16 09/18/16 09/18/16 12:03 15:34 17:50 WBC RBC Hgb Hct MCV MCH MCHC RDW Plt Count Lymph % (Auto) [place] % (Auto) Lymph # [place] # Baso # Seg Neutrophils % Seg Neuts % (Manual) Lymphocytes % (Manual) Monocytes % (Manual) Eosinophils % (Manual) Basophils % (Manual) Nucleated RBC % Seg Neutrophils # Seg Neutrophils # Man Lymphocytes # (Manual) Monocytes # (Manual) Eosinophils # (Manual) Basophils # (Manual) PT INR Fibrinogen dRVVT Confirm Interp Factor V Activity POC ABG pH POC ABG pCO2 25.7 L POC ABG pO2 66 L ABG pO2 ABG HCO3 ABG Base Excess ABG Hemoglobin Oxyhemoglobin Sodium Potassium Chloride Carbon Dioxide BUN Creatinine Glucose POC Glucose 156 H 220 H Lactic Acid Calcium Phosphorus Magnesium Direct Bilirubin AST ALT Alkaline Phosphatase Lactate Dehydrogenase Troponin T C-Reactive Protein Total Protein Albumin Prealbumin Triglycerides Cholesterol LDL Cholesterol Direct HDL Cholesterol PTH Intact Urine pH Urine WBC (Auto) Urine Creatinine Urine Total Protein Fluid Total Protein Vancomycin Trough Rheumatoid Factor Complement C4 Miscellaneous Test Crossmatch 09/19/16 09/19/16 09/19/16 06:21 09:50 09:50 WBC 17.1 H RBC 3.49 L Hgb 9.0 L Hct 28.1 L MCV MCH 26 L MCHC RDW 20.8 H Plt Count Lymph % (Auto) 11.5 L [place] % (Auto) 7.5 H Lymph # [place] # 1.3 H Baso # Seg Neutrophils % 79.8 H Seg Neuts % (Manual) Lymphocytes % (Manual) Monocytes % (Manual) Eosinophils % (Manual) Basophils % (Manual) Nucleated RBC % Seg Neutrophils # 13.7 H Seg Neutrophils # Man Lymphocytes # (Manual) Monocytes # (Manual) Eosinophils # (Manual) Basophils # (Manual) PT INR Fibrinogen dRVVT Confirm Interp Factor V Activity POC ABG pH POC ABG pCO2 POC ABG pO2 ABG pO2 ABG HCO3 ABG Base Excess ABG Hemoglobin Oxyhemoglobin Sodium Potassium Chloride 108.6 H Carbon Dioxide 15 L BUN 125 H Creatinine 4.1 H Glucose 124 H POC Glucose 119 H Lactic Acid Calcium Phosphorus Magnesium Direct Bilirubin AST ALT Alkaline Phosphatase Lactate Dehydrogenase Troponin T C-Reactive Protein Total Protein Albumin Prealbumin Triglycerides Cholesterol LDL Cholesterol Direct HDL Cholesterol PTH Intact Urine pH Urine WBC (Auto) Urine Creatinine Urine Total Protein Fluid Total Protein Vancomycin Trough Rheumatoid Factor Complement C4 Miscellaneous Test Crossmatch 09/19/16 09/19/16 09/19/16 11:25 17:53 23:36 WBC RBC Hgb Hct MCV MCH MCHC RDW Plt Count Lymph % (Auto) [place] % (Auto) Lymph # [place] # Baso # Seg Neutrophils % Seg Neuts % (Manual) Lymphocytes % (Manual) Monocytes % (Manual) Eosinophils % (Manual) Basophils % (Manual) Nucleated RBC % Seg Neutrophils # Seg Neutrophils # Man Lymphocytes # (Manual) Monocytes # (Manual) Eosinophils # (Manual) Basophils # (Manual) PT INR Fibrinogen dRVVT Confirm Interp Factor V Activity POC ABG pH POC ABG pCO2 POC ABG pO2 ABG pO2 ABG HCO3 ABG Base Excess ABG Hemoglobin Oxyhemoglobin Sodium Potassium Chloride Carbon Dioxide BUN Creatinine Glucose POC Glucose 160 H 245 H 121 H Lactic Acid Calcium Phosphorus Magnesium Direct Bilirubin AST ALT Alkaline Phosphatase Lactate Dehydrogenase Troponin T C-Reactive Protein Total Protein Albumin Prealbumin Triglycerides Cholesterol LDL Cholesterol Direct HDL Cholesterol PTH Intact Urine pH Urine WBC (Auto) Urine Creatinine Urine Total Protein Fluid Total Protein Vancomycin Trough Rheumatoid Factor Complement C4 Miscellaneous Test Crossmatch 09/20/16 09/20/16 09/20/16 04:10 04:10 04:10 WBC 17.0 H RBC 3.21 L Hgb 8.2 L Hct 25.5 L MCV MCH 26 L MCHC RDW 20.9 H Plt Count Lymph % (Auto) [place] % (Auto) Lymph # [place] # Baso # Seg Neutrophils % Seg Neuts % (Manual) Lymphocytes % (Manual) Monocytes % (Manual) Eosinophils % (Manual) Basophils % (Manual) Nucleated RBC % Seg Neutrophils # Seg Neutrophils # Man Lymphocytes # (Manual) Monocytes # (Manual) Eosinophils # (Manual) Basophils # (Manual) PT INR Fibrinogen dRVVT Confirm Interp Factor V Activity POC ABG pH POC ABG pCO2 POC ABG pO2 ABG pO2 ABG HCO3 ABG Base Excess ABG Hemoglobin Oxyhemoglobin Sodium Potassium Chloride 111.0 H Carbon Dioxide 16 L BUN 129 H Creatinine 3.7 H Glucose 115 H POC Glucose Lactic Acid Calcium 8.2 L Phosphorus Magnesium Direct Bilirubin AST ALT Alkaline Phosphatase Lactate Dehydrogenase Troponin T C-Reactive Protein Total Protein Albumin Prealbumin Triglycerides 243 H Cholesterol LDL Cholesterol Direct HDL Cholesterol PTH Intact Urine pH Urine WBC (Auto) Urine Creatinine Urine Total Protein Fluid Total Protein Vancomycin Trough Rheumatoid Factor Complement C4 Miscellaneous Test Crossmatch 09/20/16 09/20/16 09/20/16 05:40 11:52 16:50 WBC RBC Hgb Hct MCV MCH MCHC RDW Plt Count Lymph % (Auto) [place] % (Auto) Lymph # [place] # Baso # Seg Neutrophils % Seg Neuts % (Manual) Lymphocytes % (Manual) Monocytes % (Manual) Eosinophils % (Manual) Basophils % (Manual) Nucleated RBC % Seg Neutrophils # Seg Neutrophils # Man Lymphocytes # (Manual) Monocytes # (Manual) Eosinophils # (Manual) Basophils # (Manual) PT INR Fibrinogen dRVVT Confirm Interp Factor V Activity POC ABG pH POC ABG pCO2 POC ABG pO2 ABG pO2 ABG HCO3 ABG Base Excess ABG Hemoglobin Oxyhemoglobin Sodium Potassium Chloride Carbon Dioxide BUN Creatinine Glucose POC Glucose 131 H 183 H 236 H Lactic Acid Calcium Phosphorus Magnesium Direct Bilirubin AST ALT Alkaline Phosphatase Lactate Dehydrogenase Troponin T C-Reactive Protein Total Protein Albumin Prealbumin Triglycerides Cholesterol LDL Cholesterol Direct HDL Cholesterol PTH Intact Urine pH Urine WBC (Auto) Urine Creatinine Urine Total Protein Fluid Total Protein Vancomycin Trough Rheumatoid Factor Complement C4 Miscellaneous Test Crossmatch 09/20/16 09/21/16 09/21/16 23:51 03:30 04:44 WBC RBC Hgb Hct MCV MCH MCHC RDW Plt Count Lymph % (Auto) [place] % (Auto) Lymph # [place] # Baso # Seg Neutrophils % Seg Neuts % (Manual) Lymphocytes % (Manual) Monocytes % (Manual) Eosinophils % (Manual) Basophils % (Manual) Nucleated RBC % Seg Neutrophils # Seg Neutrophils # Man Lymphocytes # (Manual) Monocytes # (Manual) Eosinophils # (Manual) Basophils # (Manual) PT INR Fibrinogen dRVVT Confirm Interp Factor V Activity POC ABG pH POC ABG pCO2 POC ABG pO2 ABG pO2 ABG HCO3 ABG Base Excess ABG Hemoglobin Oxyhemoglobin Sodium Potassium Chloride Carbon Dioxide BUN Creatinine Glucose POC Glucose 114 H 141 H Lactic Acid Calcium Phosphorus Magnesium 2.70 H Direct Bilirubin AST ALT Alkaline Phosphatase Lactate Dehydrogenase Troponin T C-Reactive Protein Total Protein Albumin Prealbumin Triglycerides Cholesterol LDL Cholesterol Direct HDL Cholesterol PTH Intact Urine pH Urine WBC (Auto) Urine Creatinine Urine Total Protein Fluid Total Protein Vancomycin Trough Rheumatoid Factor Complement C4 Miscellaneous Test Crossmatch 09/21/16 09/21/16 09/21/16 07:45 07:45 10:01 WBC 13.8 H RBC 2.94 L Hgb 7.5 L Hct 23.5 L MCV MCH 26 L MCHC RDW 21.2 H Plt Count Lymph % (Auto) 6.9 L [place] % (Auto) 9.4 H Lymph # 0.9 L [place] # 1.3 H Baso # Seg Neutrophils % 83.2 H Seg Neuts % (Manual) Lymphocytes % (Manual) Monocytes % (Manual) Eosinophils % (Manual) Basophils % (Manual) Nucleated RBC % Seg Neutrophils # 11.5 H Seg Neutrophils # Man Lymphocytes # (Manual) Monocytes # (Manual) Eosinophils # (Manual) Basophils # (Manual) PT INR Fibrinogen dRVVT Confirm Interp Factor V Activity POC ABG pH 7.308 L POC ABG pCO2 31.9 L POC ABG pO2 148 H ABG pO2 ABG HCO3 ABG Base Excess ABG Hemoglobin Oxyhemoglobin Sodium 147 H Potassium Chloride 114.2 H Carbon Dioxide 15 L BUN 120 H Creatinine 3.9 H Glucose 156 H POC Glucose Lactic Acid Calcium 8.2 L Phosphorus Magnesium Direct Bilirubin AST ALT Alkaline Phosphatase Lactate Dehydrogenase Troponin T C-Reactive Protein Total Protein Albumin Prealbumin Triglycerides Cholesterol LDL Cholesterol Direct HDL Cholesterol PTH Intact Urine pH Urine WBC (Auto) Urine Creatinine Urine Total Protein Fluid Total Protein Vancomycin Trough Rheumatoid Factor Complement C4 Miscellaneous Test Crossmatch 09/21/16 09/21/16 09/21/16 12:00 12:03 13:00 WBC RBC Hgb Hct MCV MCH MCHC RDW Plt Count Lymph % (Auto) [place] % (Auto) Lymph # [place] # Baso # Seg Neutrophils % Seg Neuts % (Manual) Lymphocytes % (Manual) Monocytes % (Manual) Eosinophils % (Manual) Basophils % (Manual) Nucleated RBC % Seg Neutrophils # Seg Neutrophils # Man Lymphocytes # (Manual) Monocytes # (Manual) Eosinophils # (Manual) Basophils # (Manual) PT INR Fibrinogen dRVVT Confirm Interp Factor V Activity POC ABG pH POC ABG pCO2 POC ABG pO2 ABG pO2 ABG HCO3 ABG Base Excess ABG Hemoglobin Oxyhemoglobin Sodium Potassium Chloride Carbon Dioxide BUN Creatinine Glucose POC Glucose 163 H Lactic Acid Calcium Phosphorus Magnesium Direct Bilirubin AST ALT Alkaline Phosphatase Lactate Dehydrogenase Troponin T C-Reactive Protein Total Protein Albumin Prealbumin Triglycerides Cholesterol LDL Cholesterol Direct HDL Cholesterol PTH Intact Urine pH Urine WBC (Auto) Urine Creatinine 54.8 H Urine Total Protein Fluid Total Protein Vancomycin Trough 2.3 L Rheumatoid Factor Complement C4 Miscellaneous Test Crossmatch 09/21/16 09/21/16 09/22/16 16:51 23:17 06:27 WBC RBC Hgb Hct MCV MCH MCHC RDW Plt Count Lymph % (Auto) [place] % (Auto) Lymph # [place] # Baso # Seg Neutrophils % Seg Neuts % (Manual) Lymphocytes % (Manual) Monocytes % (Manual) Eosinophils % (Manual) Basophils % (Manual) Nucleated RBC % Seg Neutrophils # Seg Neutrophils # Man Lymphocytes # (Manual) Monocytes # (Manual) Eosinophils # (Manual) Basophils # (Manual) PT INR Fibrinogen dRVVT Confirm Interp Factor V Activity POC ABG pH POC ABG pCO2 POC ABG pO2 ABG pO2 ABG HCO3 ABG Base Excess ABG Hemoglobin Oxyhemoglobin Sodium Potassium Chloride Carbon Dioxide BUN Creatinine Glucose POC Glucose 206 H 114 H 115 H Lactic Acid Calcium Phosphorus Magnesium Direct Bilirubin AST ALT Alkaline Phosphatase Lactate Dehydrogenase Troponin T C-Reactive Protein Total Protein Albumin Prealbumin Triglycerides Cholesterol LDL Cholesterol Direct HDL Cholesterol PTH Intact Urine pH Urine WBC (Auto) Urine Creatinine Urine Total Protein Fluid Total Protein Vancomycin Trough Rheumatoid Factor Complement C4 Miscellaneous Test Crossmatch 09/22/16 09/22/16 09/22/16 07:50 07:50 12:00 WBC 17.8 H RBC 3.04 L Hgb 8.0 L Hct 24.7 L MCV MCH 26 L MCHC RDW 21.6 H Plt Count Lymph % (Auto) [place] % (Auto) Lymph # [place] # Baso # Seg Neutrophils % Seg Neuts % (Manual) Lymphocytes % (Manual) Monocytes % (Manual) Eosinophils % (Manual) Basophils % (Manual) Nucleated RBC % Seg Neutrophils # Seg Neutrophils # Man Lymphocytes # (Manual) Monocytes # (Manual) Eosinophils # (Manual) Basophils # (Manual) PT INR Fibrinogen dRVVT Confirm Interp Factor V Activity POC ABG pH POC ABG pCO2 POC ABG pO2 ABG pO2 ABG HCO3 ABG Base Excess ABG Hemoglobin Oxyhemoglobin Sodium 150 H Potassium Chloride 118.2 H Carbon Dioxide 14 L BUN 111 H Creatinine 3.7 H Glucose 157 H POC Glucose 183 H Lactic Acid Calcium Phosphorus Magnesium Direct Bilirubin AST ALT Alkaline Phosphatase Lactate Dehydrogenase Troponin T C-Reactive Protein Total Protein Albumin Prealbumin Triglycerides Cholesterol LDL Cholesterol Direct HDL Cholesterol PTH Intact Urine pH Urine WBC (Auto) Urine Creatinine Urine Total Protein Fluid Total Protein Vancomycin Trough Rheumatoid Factor Complement C4 Miscellaneous Test Crossmatch 09/22/16 09/22/16 09/23/16 17:29 23:10 05:00 WBC 19.2 H RBC 3.13 L Hgb 8.0 L Hct 25.2 L MCV MCH 26 L MCHC RDW 22.1 H Plt Count Lymph % (Auto) [place] % (Auto) Lymph # [place] # Baso # Seg Neutrophils % Seg Neuts % (Manual) 92.0 H Lymphocytes % (Manual) 3.0 L Monocytes % (Manual) Eosinophils % (Manual) Basophils % (Manual) Nucleated RBC % Seg Neutrophils # Seg Neutrophils # Man 17.7 H Lymphocytes # (Manual) 0.6 L Monocytes # (Manual) Eosinophils # (Manual) Basophils # (Manual) PT INR Fibrinogen dRVVT Confirm Interp Factor V Activity POC ABG pH POC ABG pCO2 POC ABG pO2 ABG pO2 ABG HCO3 ABG Base Excess ABG Hemoglobin Oxyhemoglobin Sodium Potassium Chloride Carbon Dioxide BUN Creatinine Glucose POC Glucose 197 H 169 H Lactic Acid Calcium Phosphorus Magnesium Direct Bilirubin AST ALT Alkaline Phosphatase Lactate Dehydrogenase Troponin T C-Reactive Protein Total Protein Albumin Prealbumin Triglycerides Cholesterol LDL Cholesterol Direct HDL Cholesterol PTH Intact Urine pH Urine WBC (Auto) Urine Creatinine Urine Total Protein Fluid Total Protein Vancomycin Trough Rheumatoid Factor Complement C4 Miscellaneous Test Crossmatch 09/23/16 09/23/16 09/23/16 05:00 05:00 05:10 WBC RBC Hgb Hct MCV MCH MCHC RDW Plt Count Lymph % (Auto) [place] % (Auto) Lymph # [place] # Baso # Seg Neutrophils % Seg Neuts % (Manual) Lymphocytes % (Manual) Monocytes % (Manual) Eosinophils % (Manual) Basophils % (Manual) Nucleated RBC % Seg Neutrophils # Seg Neutrophils # Man Lymphocytes # (Manual) Monocytes # (Manual) Eosinophils # (Manual) Basophils # (Manual) PT INR Fibrinogen dRVVT Confirm Interp Factor V Activity POC ABG pH POC ABG pCO2 POC ABG pO2 ABG pO2 ABG HCO3 ABG Base Excess ABG Hemoglobin Oxyhemoglobin Sodium 147 H Potassium 3.2 L Chloride 115.7 H Carbon Dioxide 13 L BUN 111 H Creatinine 3.8 H Glucose 194 H POC Glucose 188 H Lactic Acid Calcium 7.3 L D Phosphorus Magnesium Direct Bilirubin AST ALT Alkaline Phosphatase Lactate Dehydrogenase Troponin T C-Reactive Protein 3.20 H Total Protein Albumin Prealbumin Triglycerides Cholesterol LDL Cholesterol Direct HDL Cholesterol PTH Intact Urine pH Urine WBC (Auto) Urine Creatinine Urine Total Protein Fluid Total Protein Vancomycin Trough Rheumatoid Factor Complement C4 Miscellaneous Test Crossmatch 09/23/16 09/23/16 09/23/16 11:37 12:29 18:01 WBC RBC Hgb Hct MCV MCH MCHC RDW Plt Count Lymph % (Auto) [place] % (Auto) Lymph # [place] # Baso # Seg Neutrophils % Seg Neuts % (Manual) Lymphocytes % (Manual) Monocytes % (Manual) Eosinophils % (Manual) Basophils % (Manual) Nucleated RBC % Seg Neutrophils # Seg Neutrophils # Man Lymphocytes # (Manual) Monocytes # (Manual) Eosinophils # (Manual) Basophils # (Manual) PT INR Fibrinogen dRVVT Confirm Interp Factor V Activity POC ABG pH POC ABG pCO2 18.9 L POC ABG pO2 143 H ABG pO2 ABG HCO3 ABG Base Excess ABG Hemoglobin Oxyhemoglobin Sodium Potassium Chloride Carbon Dioxide BUN Creatinine Glucose POC Glucose 153 H 108 H Lactic Acid Calcium Phosphorus Magnesium Direct Bilirubin AST ALT Alkaline Phosphatase Lactate Dehydrogenase Troponin T C-Reactive Protein Total Protein Albumin Prealbumin Triglycerides Cholesterol LDL Cholesterol Direct HDL Cholesterol PTH Intact Urine pH Urine WBC (Auto) Urine Creatinine Urine Total Protein Fluid Total Protein Vancomycin Trough Rheumatoid Factor Complement C4 Miscellaneous Test Crossmatch 09/23/16 09/23/16 09/24/16 21:19 23:43 05:16 WBC RBC Hgb Hct MCV MCH MCHC RDW Plt Count Lymph % (Auto) [place] % (Auto) Lymph # [place] # Baso # Seg Neutrophils % Seg Neuts % (Manual) Lymphocytes % (Manual) Monocytes % (Manual) Eosinophils % (Manual) Basophils % (Manual) Nucleated RBC % Seg Neutrophils # Seg Neutrophils # Man Lymphocytes # (Manual) Monocytes # (Manual) Eosinophils # (Manual) Basophils # (Manual) PT INR Fibrinogen dRVVT Confirm Interp Factor V Activity POC ABG pH POC ABG pCO2 17.3 L POC ABG pO2 112 H ABG pO2 ABG HCO3 ABG Base Excess ABG Hemoglobin Oxyhemoglobin Sodium Potassium Chloride Carbon Dioxide BUN Creatinine Glucose POC Glucose 143 H 164 H Lactic Acid Calcium Phosphorus Magnesium Direct Bilirubin AST ALT Alkaline Phosphatase Lactate Dehydrogenase Troponin T C-Reactive Protein Total Protein Albumin Prealbumin Triglycerides Cholesterol LDL Cholesterol Direct HDL Cholesterol PTH Intact Urine pH Urine WBC (Auto) Urine Creatinine Urine Total Protein Fluid Total Protein Vancomycin Trough Rheumatoid Factor Complement C4 Miscellaneous Test Crossmatch 09/24/16 09/24/16 09/24/16 05:21 11:58 17:06 WBC RBC Hgb Hct MCV MCH MCHC RDW Plt Count Lymph % (Auto) [place] % (Auto) Lymph # [place] # Baso # Seg Neutrophils % Seg Neuts % (Manual) Lymphocytes % (Manual) Monocytes % (Manual) Eosinophils % (Manual) Basophils % (Manual) Nucleated RBC % Seg Neutrophils # Seg Neutrophils # Man Lymphocytes # (Manual) Monocytes # (Manual) Eosinophils # (Manual) Basophils # (Manual) PT INR Fibrinogen dRVVT Confirm Interp Factor V Activity POC ABG pH POC ABG pCO2 POC ABG pO2 ABG pO2 ABG HCO3 ABG Base Excess ABG Hemoglobin Oxyhemoglobin Sodium Potassium Chloride Carbon Dioxide 10 L BUN 103 H Creatinine 4.3 H Glucose 163 H POC Glucose 173 H 167 H Lactic Acid Calcium 6.5 L Phosphorus Magnesium Direct Bilirubin AST ALT Alkaline Phosphatase Lactate Dehydrogenase Troponin T C-Reactive Protein Total Protein Albumin Prealbumin Triglycerides Cholesterol LDL Cholesterol Direct HDL Cholesterol PTH Intact Urine pH Urine WBC (Auto) Urine Creatinine Urine Total Protein Fluid Total Protein Vancomycin Trough Rheumatoid Factor Complement C4 Miscellaneous Test Crossmatch 09/24/16 09/24/16 09/24/16 20:15 21:02 23:48 WBC RBC Hgb Hct MCV MCH MCHC RDW Plt Count Lymph % (Auto) [place] % (Auto) Lymph # [place] # Baso # Seg Neutrophils % Seg Neuts % (Manual) Lymphocytes % (Manual) Monocytes % (Manual) Eosinophils % (Manual) Basophils % (Manual) Nucleated RBC % Seg Neutrophils # Seg Neutrophils # Man Lymphocytes # (Manual) Monocytes # (Manual) Eosinophils # (Manual) Basophils # (Manual) PT INR Fibrinogen dRVVT Confirm Interp Factor V Activity POC ABG pH 7.288 L POC ABG pCO2 30.2 L 21.5 L POC ABG pO2 32 L 39 L ABG pO2 ABG HCO3 ABG Base Excess ABG Hemoglobin Oxyhemoglobin Sodium Potassium Chloride Carbon Dioxide BUN Creatinine Glucose POC Glucose 109 H Lactic Acid Calcium Phosphorus Magnesium Direct Bilirubin AST ALT Alkaline Phosphatase Lactate Dehydrogenase Troponin T C-Reactive Protein Total Protein Albumin Prealbumin Triglycerides Cholesterol LDL Cholesterol Direct HDL Cholesterol PTH Intact Urine pH Urine WBC (Auto) Urine Creatinine Urine Total Protein Fluid Total Protein Vancomycin Trough Rheumatoid Factor Complement C4 Miscellaneous Test Crossmatch 09/25/16 09/25/16 09/25/16 04:20 04:20 04:20 WBC RBC 2.58 L Hgb 7.0 L Hct 21.0 L MCV MCH 27 L MCHC RDW 23.8 H Plt Count Lymph % (Auto) [place] % (Auto) Lymph # [place] # Baso # Seg Neutrophils % Seg Neuts % (Manual) Lymphocytes % (Manual) 12.0 L Monocytes % (Manual) Eosinophils % (Manual) 7.0 H Basophils % (Manual) 2.0 H Nucleated RBC % Seg Neutrophils # Seg Neutrophils # Man Lymphocytes # (Manual) 0.9 L Monocytes # (Manual) Eosinophils # (Manual) 0.5 H Basophils # (Manual) PT INR Fibrinogen dRVVT Confirm Interp Factor V Activity POC ABG pH POC ABG pCO2 POC ABG pO2 ABG pO2 ABG HCO3 ABG Base Excess ABG Hemoglobin Oxyhemoglobin Sodium Potassium Chloride Carbon Dioxide 15 L BUN 72 H Creatinine 3.8 H Glucose POC Glucose Lactic Acid Calcium 6.0 L Phosphorus 4.60 H Magnesium 1.60 L Direct Bilirubin AST ALT Alkaline Phosphatase Lactate Dehydrogenase Troponin T C-Reactive Protein Total Protein Albumin Prealbumin Triglycerides Cholesterol LDL Cholesterol Direct HDL Cholesterol PTH Intact Urine pH Urine WBC (Auto) Urine Creatinine Urine Total Protein Fluid Total Protein Vancomycin Trough Rheumatoid Factor Complement C4 Miscellaneous Test Crossmatch 09/25/16 09/25/16 09/25/16 04:57 08:02 10:30 WBC RBC Hgb Hct MCV MCH MCHC RDW Plt Count Lymph % (Auto) [place] % (Auto) Lymph # [place] # Baso # Seg Neutrophils % Seg Neuts % (Manual) Lymphocytes % (Manual) Monocytes % (Manual) Eosinophils % (Manual) Basophils % (Manual) Nucleated RBC % Seg Neutrophils # Seg Neutrophils # Man Lymphocytes # (Manual) Monocytes # (Manual) Eosinophils # (Manual) Basophils # (Manual) PT INR Fibrinogen dRVVT Confirm Interp Factor V Activity POC ABG pH POC ABG pCO2 24.7 L POC ABG pO2 152 H ABG pO2 ABG HCO3 ABG Base Excess ABG Hemoglobin Oxyhemoglobin Sodium Potassium Chloride Carbon Dioxide BUN Creatinine Glucose POC Glucose 113 H Lactic Acid Calcium Phosphorus Magnesium Direct Bilirubin AST ALT Alkaline Phosphatase Lactate Dehydrogenase Troponin T C-Reactive Protein Total Protein Albumin Prealbumin Triglycerides Cholesterol LDL Cholesterol Direct HDL Cholesterol PTH Intact Urine pH Urine WBC (Auto) Urine Creatinine Urine Total Protein Fluid Total Protein Vancomycin Trough Rheumatoid Factor Complement C4 Miscellaneous Test Crossmatch See Detail 09/25/16 09/25/16 09/25/16 12:05 17:44 23:47 WBC RBC Hgb Hct MCV MCH MCHC RDW Plt Count Lymph % (Auto) [place] % (Auto) Lymph # [place] # Baso # Seg Neutrophils % Seg Neuts % (Manual) Lymphocytes % (Manual) Monocytes % (Manual) Eosinophils % (Manual) Basophils % (Manual) Nucleated RBC % Seg Neutrophils # Seg Neutrophils # Man Lymphocytes # (Manual) Monocytes # (Manual) Eosinophils # (Manual) Basophils # (Manual) PT INR Fibrinogen dRVVT Confirm Interp Factor V Activity POC ABG pH POC ABG pCO2 POC ABG pO2 ABG pO2 ABG HCO3 ABG Base Excess ABG Hemoglobin Oxyhemoglobin Sodium Potassium Chloride Carbon Dioxide BUN Creatinine Glucose POC Glucose 117 H 119 H 150 H Lactic Acid Calcium Phosphorus Magnesium Direct Bilirubin AST ALT Alkaline Phosphatase Lactate Dehydrogenase Troponin T C-Reactive Protein Total Protein Albumin Prealbumin Triglycerides Cholesterol LDL Cholesterol Direct HDL Cholesterol PTH Intact Urine pH Urine WBC (Auto) Urine Creatinine Urine Total Protein Fluid Total Protein Vancomycin Trough Rheumatoid Factor Complement C4 Miscellaneous Test Crossmatch 09/26/16 09/26/16 09/26/16 04:25 04:25 04:25 WBC RBC 2.65 L Hgb 7.4 L Hct 21.6 L MCV MCH MCHC RDW 22.5 H Plt Count Lymph % (Auto) [place] % (Auto) Lymph # [place] # Baso # Seg Neutrophils % Seg Neuts % (Manual) Lymphocytes % (Manual) 6.0 L Monocytes % (Manual) Eosinophils % (Manual) 11.0 H Basophils % (Manual) Nucleated RBC % Seg Neutrophils # Seg Neutrophils # Man Lymphocytes # (Manual) 0.4 L Monocytes # (Manual) Eosinophils # (Manual) 0.6 H Basophils # (Manual) PT INR Fibrinogen dRVVT Confirm Interp Factor V Activity POC ABG pH POC ABG pCO2 POC ABG pO2 ABG pO2 ABG HCO3 ABG Base Excess ABG Hemoglobin Oxyhemoglobin Sodium Potassium Chloride 97.0 L Carbon Dioxide 19 L BUN 43 H Creatinine 2.6 H Glucose 130 H POC Glucose Lactic Acid 4.40 H* Calcium 6.7 L Phosphorus Magnesium Direct Bilirubin AST ALT Alkaline Phosphatase Lactate Dehydrogenase Troponin T C-Reactive Protein Total Protein Albumin Prealbumin Triglycerides Cholesterol LDL Cholesterol Direct HDL Cholesterol PTH Intact Urine pH Urine WBC (Auto) Urine Creatinine Urine Total Protein Fluid Total Protein Vancomycin Trough Rheumatoid Factor Complement C4 Miscellaneous Test Crossmatch 09/26/16 09/26/16 09/26/16 05:20 11:44 12:12 WBC RBC Hgb Hct MCV MCH MCHC RDW Plt Count Lymph % (Auto) [place] % (Auto) Lymph # [place] # Baso # Seg Neutrophils % Seg Neuts % (Manual) Lymphocytes % (Manual) Monocytes % (Manual) Eosinophils % (Manual) Basophils % (Manual) Nucleated RBC % Seg Neutrophils # Seg Neutrophils # Man Lymphocytes # (Manual) Monocytes # (Manual) Eosinophils # (Manual) Basophils # (Manual) PT INR Fibrinogen dRVVT Confirm Interp Factor V Activity POC ABG pH POC ABG pCO2 27.0 L POC ABG pO2 69 L ABG pO2 ABG HCO3 ABG Base Excess ABG Hemoglobin Oxyhemoglobin Sodium Potassium Chloride Carbon Dioxide BUN Creatinine Glucose POC Glucose 121 H 128 H Lactic Acid Calcium Phosphorus Magnesium Direct Bilirubin AST ALT Alkaline Phosphatase Lactate Dehydrogenase Troponin T C-Reactive Protein Total Protein Albumin Prealbumin Triglycerides Cholesterol LDL Cholesterol Direct HDL Cholesterol PTH Intact Urine pH Urine WBC (Auto) Urine Creatinine Urine Total Protein Fluid Total Protein Vancomycin Trough Rheumatoid Factor Complement C4 Miscellaneous Test Crossmatch 09/26/16 09/26/16 09/27/16 18:31 23:40 08:20 WBC RBC Hgb Hct MCV MCH MCHC RDW Plt Count Lymph % (Auto) [place] % (Auto) Lymph # [place] # Baso # Seg Neutrophils % Seg Neuts % (Manual) Lymphocytes % (Manual) Monocytes % (Manual) Eosinophils % (Manual) Basophils % (Manual) Nucleated RBC % Seg Neutrophils # Seg Neutrophils # Man Lymphocytes # (Manual) Monocytes # (Manual) Eosinophils # (Manual) Basophils # (Manual) PT INR Fibrinogen dRVVT Confirm Interp Factor V Activity POC ABG pH POC ABG pCO2 POC ABG pO2 ABG pO2 ABG HCO3 ABG Base Excess ABG Hemoglobin Oxyhemoglobin Sodium Potassium Chloride Carbon Dioxide BUN Creatinine Glucose POC Glucose 120 H 133 H Lactic Acid 4.10 H* Calcium Phosphorus Magnesium Direct Bilirubin AST ALT Alkaline Phosphatase Lactate Dehydrogenase Troponin T C-Reactive Protein Total Protein Albumin Prealbumin Triglycerides Cholesterol LDL Cholesterol Direct HDL Cholesterol PTH Intact Urine pH Urine WBC (Auto) Urine Creatinine Urine Total Protein Fluid Total Protein Vancomycin Trough Rheumatoid Factor Complement C4 Miscellaneous Test Crossmatch 09/27/16 09/27/16 09/27/16 11:23 15:00 18:15 WBC RBC Hgb Hct MCV MCH MCHC RDW Plt Count Lymph % (Auto) [place] % (Auto) Lymph # [place] # Baso # Seg Neutrophils % Seg Neuts % (Manual) Lymphocytes % (Manual) Monocytes % (Manual) Eosinophils % (Manual) Basophils % (Manual) Nucleated RBC % Seg Neutrophils # Seg Neutrophils # Man Lymphocytes # (Manual) Monocytes # (Manual) Eosinophils # (Manual) Basophils # (Manual) PT INR Fibrinogen dRVVT Confirm Interp Factor V Activity POC ABG pH 7.459 H POC ABG pCO2 27.1 L POC ABG pO2 140 H ABG pO2 ABG HCO3 ABG Base Excess ABG Hemoglobin Oxyhemoglobin Sodium Potassium Chloride Carbon Dioxide BUN Creatinine Glucose POC Glucose 114 H 127 H Lactic Acid Calcium Phosphorus Magnesium Direct Bilirubin AST ALT Alkaline Phosphatase Lactate Dehydrogenase Troponin T C-Reactive Protein Total Protein Albumin Prealbumin Triglycerides Cholesterol LDL Cholesterol Direct HDL Cholesterol PTH Intact Urine pH Urine WBC (Auto) Urine Creatinine Urine Total Protein Fluid Total Protein Vancomycin Trough Rheumatoid Factor Complement C4 Miscellaneous Test Crossmatch 09/27/16 09/27/16 09/28/16 Unknown Unknown 03:45 WBC RBC 2.49 L Hgb 6.8 L Hct 20.7 L MCV MCH 27 L MCHC RDW 22.1 H Plt Count Lymph % (Auto) [place] % (Auto) Lymph # [place] # Baso # Seg Neutrophils % Seg Neuts % (Manual) 32.0 L Lymphocytes % (Manual) 12.0 L Monocytes % (Manual) 11.0 H Eosinophils % (Manual) 10.0 H Basophils % (Manual) Nucleated RBC % Seg Neutrophils # Seg Neutrophils # Man Lymphocytes # (Manual) 1.0 L Monocytes # (Manual) 0.9 H Eosinophils # (Manual) 0.8 H Basophils # (Manual) PT INR Fibrinogen dRVVT Confirm Interp Factor V Activity POC ABG pH POC ABG pCO2 POC ABG pO2 ABG pO2 ABG HCO3 ABG Base Excess ABG Hemoglobin Oxyhemoglobin Sodium 135 L 135 L Potassium 3.5 L Chloride 93.6 L 94.4 L Carbon Dioxide 17 L 21 L BUN 45 H 28 H Creatinine 3.3 H 2.5 H Glucose 106 H POC Glucose Lactic Acid Calcium 7.3 L 7.1 L Phosphorus Magnesium Direct Bilirubin AST ALT Alkaline Phosphatase Lactate Dehydrogenase Troponin T C-Reactive Protein Total Protein Albumin Prealbumin Triglycerides Cholesterol LDL Cholesterol Direct HDL Cholesterol PTH Intact Urine pH Urine WBC (Auto) Urine Creatinine Urine Total Protein Fluid Total Protein Vancomycin Trough Rheumatoid Factor Complement C4 Miscellaneous Test Crossmatch 09/28/16 09/28/16 09/28/16 03:45 07:25 11:58 WBC 13.3 H RBC 3.01 L Hgb 8.4 L Hct 25.0 L MCV MCH MCHC RDW 20.5 H Plt Count 128 L Lymph % (Auto) [place] % (Auto) Lymph # [place] # Baso # Seg Neutrophils % Seg Neuts % (Manual) Lymphocytes % (Manual) 7.0 L Monocytes % (Manual) Eosinophils % (Manual) 6.0 H Basophils % (Manual) Nucleated RBC % Seg Neutrophils # Seg Neutrophils # Man Lymphocytes # (Manual) 0.9 L Monocytes # (Manual) Eosinophils # (Manual) 0.8 H Basophils # (Manual) PT INR Fibrinogen dRVVT Confirm Interp Factor V Activity POC ABG pH POC ABG pCO2 POC ABG pO2 ABG pO2 ABG HCO3 ABG Base Excess ABG Hemoglobin Oxyhemoglobin Sodium Potassium Chloride Carbon Dioxide BUN Creatinine Glucose POC Glucose 121 H Lactic Acid 4.50 H* Calcium Phosphorus Magnesium Direct Bilirubin AST ALT Alkaline Phosphatase Lactate Dehydrogenase Troponin T C-Reactive Protein Total Protein Albumin Prealbumin Triglycerides Cholesterol LDL Cholesterol Direct HDL Cholesterol PTH Intact Urine pH Urine WBC (Auto) Urine Creatinine Urine Total Protein Fluid Total Protein Vancomycin Trough Rheumatoid Factor Complement C4 Miscellaneous Test Crossmatch 09/29/16 09/29/16 09/29/16 06:45 06:45 06:45 WBC 14.9 H RBC 2.74 L Hgb 7.6 L Hct 23.2 L MCV MCH MCHC RDW 20.5 H Plt Count 81 L Lymph % (Auto) [place] % (Auto) Lymph # [place] # Baso # Seg Neutrophils % Seg Neuts % (Manual) 81.0 H Lymphocytes % (Manual) 4.0 L Monocytes % (Manual) Eosinophils % (Manual) Basophils % (Manual) Nucleated RBC % Seg Neutrophils # Seg Neutrophils # Man 12.1 H Lymphocytes # (Manual) 0.6 L Monocytes # (Manual) Eosinophils # (Manual) Basophils # (Manual) PT INR Fibrinogen dRVVT Confirm Interp Factor V Activity POC ABG pH POC ABG pCO2 POC ABG pO2 ABG pO2 ABG HCO3 ABG Base Excess ABG Hemoglobin Oxyhemoglobin Sodium 133 L Potassium 3.4 L Chloride 92.5 L Carbon Dioxide 21 L BUN 33 H Creatinine 3.0 H Glucose POC Glucose Lactic Acid Calcium 6.6 L Phosphorus Magnesium 1.40 L Direct Bilirubin 0.9 H AST ALT Alkaline Phosphatase Lactate Dehydrogenase Troponin T C-Reactive Protein Total Protein 4.3 L Albumin 1.3 L Prealbumin Triglycerides Cholesterol LDL Cholesterol Direct HDL Cholesterol PTH Intact Urine pH Urine WBC (Auto) Urine Creatinine Urine Total Protein Fluid Total Protein Vancomycin Trough Rheumatoid Factor Complement C4 Miscellaneous Test Crossmatch 09/29/16 09/29/16 09/30/16 17:52 20:12 00:07 WBC RBC Hgb Hct MCV MCH MCHC RDW Plt Count Lymph % (Auto) [place] % (Auto) Lymph # [place] # Baso # Seg Neutrophils % Seg Neuts % (Manual) Lymphocytes % (Manual) Monocytes % (Manual) Eosinophils % (Manual) Basophils % (Manual) Nucleated RBC % Seg Neutrophils # Seg Neutrophils # Man Lymphocytes # (Manual) Monocytes # (Manual) Eosinophils # (Manual) Basophils # (Manual) PT INR Fibrinogen dRVVT Confirm Interp Factor V Activity POC ABG pH POC ABG pCO2 POC ABG pO2 ABG pO2 ABG HCO3 ABG Base Excess ABG Hemoglobin Oxyhemoglobin Sodium Potassium Chloride Carbon Dioxide BUN Creatinine Glucose POC Glucose 50 L 51 L Lactic Acid Calcium Phosphorus Magnesium Direct Bilirubin AST ALT Alkaline Phosphatase Lactate Dehydrogenase Troponin T 0.204 H* C-Reactive Protein Total Protein Albumin Prealbumin Triglycerides Cholesterol 31 L LDL Cholesterol Direct 4 L HDL Cholesterol 3 L PTH Intact Urine pH Urine WBC (Auto) Urine Creatinine Urine Total Protein Fluid Total Protein Vancomycin Trough Rheumatoid Factor Complement C4 Miscellaneous Test Crossmatch 09/30/16 09/30/16 09/30/16 01:30 05:15 06:10 WBC RBC Hgb Hct MCV MCH MCHC RDW Plt Count Lymph % (Auto) [place] % (Auto) Lymph # [place] # Baso # Seg Neutrophils % Seg Neuts % (Manual) Lymphocytes % (Manual) Monocytes % (Manual) Eosinophils % (Manual) Basophils % (Manual) Nucleated RBC % Seg Neutrophils # Seg Neutrophils # Man Lymphocytes # (Manual) Monocytes # (Manual) Eosinophils # (Manual) Basophils # (Manual) PT INR Fibrinogen dRVVT Confirm Interp Factor V Activity POC ABG pH POC ABG pCO2 POC ABG pO2 ABG pO2 ABG HCO3 ABG Base Excess ABG Hemoglobin Oxyhemoglobin Sodium 133 L Potassium 3.2 L Chloride 93.2 L Carbon Dioxide 19 L BUN 36 H Creatinine 3.2 H Glucose 104 H POC Glucose 167 H 146 H Lactic Acid Calcium 6.4 L Phosphorus Magnesium 1.60 L Direct Bilirubin AST ALT Alkaline Phosphatase Lactate Dehydrogenase Troponin T C-Reactive Protein Total Protein Albumin Prealbumin Triglycerides Cholesterol LDL Cholesterol Direct HDL Cholesterol PTH Intact Urine pH Urine WBC (Auto) Urine Creatinine Urine Total Protein Fluid Total Protein Vancomycin Trough Rheumatoid Factor Complement C4 Miscellaneous Test Crossmatch 09/30/16 09/30/16 09/30/16 11:26 13:39 18:38 WBC RBC Hgb Hct MCV MCH MCHC RDW Plt Count Lymph % (Auto) [place] % (Auto) Lymph # [place] # Baso # Seg Neutrophils % Seg Neuts % (Manual) Lymphocytes % (Manual) Monocytes % (Manual) Eosinophils % (Manual) Basophils % (Manual) Nucleated RBC % Seg Neutrophils # Seg Neutrophils # Man Lymphocytes # (Manual) Monocytes # (Manual) Eosinophils # (Manual) Basophils # (Manual) PT INR Fibrinogen dRVVT Confirm Interp Factor V Activity POC ABG pH 7.479 H POC ABG pCO2 29.8 L POC ABG pO2 117 H ABG pO2 ABG HCO3 ABG Base Excess ABG Hemoglobin Oxyhemoglobin Sodium Potassium Chloride Carbon Dioxide BUN Creatinine Glucose POC Glucose 140 H 122 H Lactic Acid Calcium Phosphorus Magnesium Direct Bilirubin AST ALT Alkaline Phosphatase Lactate Dehydrogenase Troponin T C-Reactive Protein Total Protein Albumin Prealbumin Triglycerides Cholesterol LDL Cholesterol Direct HDL Cholesterol PTH Intact Urine pH Urine WBC (Auto) Urine Creatinine Urine Total Protein Fluid Total Protein Vancomycin Trough Rheumatoid Factor Complement C4 Miscellaneous Test Crossmatch 10/01/16 10/01/16 10/01/16 06:00 06:00 12:37 WBC 12.6 H RBC 2.75 L Hgb 7.3 L Hct 23.3 L MCV MCH 27 L MCHC RDW 20.6 H Plt Count 72 L Lymph % (Auto) [place] % (Auto) Lymph # [place] # Baso # Seg Neutrophils % Seg Neuts % (Manual) 31.0 L Lymphocytes % (Manual) 8.0 L Monocytes % (Manual) Eosinophils % (Manual) Basophils % (Manual) Nucleated RBC % 3.0 H Seg Neutrophils # Seg Neutrophils # Man Lymphocytes # (Manual) 1.0 L Monocytes # (Manual) Eosinophils # (Manual) Basophils # (Manual) PT INR Fibrinogen dRVVT Confirm Interp Factor V Activity POC ABG pH POC ABG pCO2 POC ABG pO2 ABG pO2 ABG HCO3 ABG Base Excess ABG Hemoglobin Oxyhemoglobin Sodium 127 L Potassium Chloride 86.8 L Carbon Dioxide 20 L BUN 42 H Creatinine 3.5 H Glucose POC Glucose 65 L Lactic Acid Calcium 7.0 L Phosphorus Magnesium Direct Bilirubin AST ALT Alkaline Phosphatase Lactate Dehydrogenase Troponin T C-Reactive Protein Total Protein Albumin Prealbumin Triglycerides Cholesterol LDL Cholesterol Direct HDL Cholesterol PTH Intact Urine pH Urine WBC (Auto) Urine Creatinine Urine Total Protein Fluid Total Protein Vancomycin Trough Rheumatoid Factor Complement C4 Miscellaneous Test Crossmatch 10/01/16 10/01/16 10/02/16 17:39 23:32 00:59 WBC RBC Hgb Hct MCV MCH MCHC RDW Plt Count Lymph % (Auto) [place] % (Auto) Lymph # [place] # Baso # Seg Neutrophils % Seg Neuts % (Manual) Lymphocytes % (Manual) Monocytes % (Manual) Eosinophils % (Manual) Basophils % (Manual) Nucleated RBC % Seg Neutrophils # Seg Neutrophils # Man Lymphocytes # (Manual) Monocytes # (Manual) Eosinophils # (Manual) Basophils # (Manual) PT INR Fibrinogen dRVVT Confirm Interp Factor V Activity POC ABG pH POC ABG pCO2 POC ABG pO2 ABG pO2 ABG HCO3 ABG Base Excess ABG Hemoglobin Oxyhemoglobin Sodium Potassium Chloride Carbon Dioxide BUN Creatinine Glucose POC Glucose 107 H 52 L 145 H Lactic Acid Calcium Phosphorus Magnesium Direct Bilirubin AST ALT Alkaline Phosphatase Lactate Dehydrogenase Troponin T C-Reactive Protein Total Protein Albumin Prealbumin Triglycerides Cholesterol LDL Cholesterol Direct HDL Cholesterol PTH Intact Urine pH Urine WBC (Auto) Urine Creatinine Urine Total Protein Fluid Total Protein Vancomycin Trough Rheumatoid Factor Complement C4 Miscellaneous Test Crossmatch 10/02/16 10/02/16 10/02/16 10:30 10:50 10:50 WBC 14.7 H RBC 2.76 L Hgb 7.4 L Hct 23.6 L MCV MCH 27 L MCHC RDW 20.2 H Plt Count 79 L Lymph % (Auto) [place] % (Auto) Lymph # [place] # Baso # Seg Neutrophils % Seg Neuts % (Manual) 86.0 H Lymphocytes % (Manual) 6.0 L Monocytes % (Manual) Eosinophils % (Manual) Basophils % (Manual) Nucleated RBC % Seg Neutrophils # Seg Neutrophils # Man 12.6 H Lymphocytes # (Manual) 0.9 L Monocytes # (Manual) Eosinophils # (Manual) Basophils # (Manual) PT INR Fibrinogen dRVVT Confirm Interp Factor V Activity POC ABG pH 7.486 H POC ABG pCO2 30.1 L POC ABG pO2 108 H ABG pO2 ABG HCO3 ABG Base Excess ABG Hemoglobin Oxyhemoglobin Sodium 131 L Potassium 3.4 L Chloride 89.9 L Carbon Dioxide BUN 26 H Creatinine 2.6 H Glucose POC Glucose Lactic Acid Calcium 7.0 L Phosphorus Magnesium Direct Bilirubin AST ALT Alkaline Phosphatase Lactate Dehydrogenase Troponin T C-Reactive Protein Total Protein Albumin Prealbumin Triglycerides Cholesterol LDL Cholesterol Direct HDL Cholesterol PTH Intact Urine pH Urine WBC (Auto) Urine Creatinine Urine Total Protein Fluid Total Protein Vancomycin Trough Rheumatoid Factor Complement C4 Miscellaneous Test Crossmatch 10/02/16 10/03/16 10/03/16 23:45 00:45 05:10 WBC 12.9 H RBC 2.77 L Hgb 7.6 L Hct 23.7 L MCV MCH 27 L MCHC RDW 19.7 H Plt Count 89 L Lymph % (Auto) [place] % (Auto) Lymph # [place] # Baso # Seg Neutrophils % Seg Neuts % (Manual) Lymphocytes % (Manual) 8.0 L Monocytes % (Manual) Eosinophils % (Manual) Basophils % (Manual) Nucleated RBC % Seg Neutrophils # 11.9 H Seg Neutrophils # Man Lymphocytes # (Manual) 1.0 L Monocytes # (Manual) Eosinophils # (Manual) Basophils # (Manual) PT INR Fibrinogen dRVVT Confirm Interp Factor V Activity POC ABG pH POC ABG pCO2 POC ABG pO2 ABG pO2 ABG HCO3 ABG Base Excess ABG Hemoglobin Oxyhemoglobin Sodium Potassium Chloride Carbon Dioxide BUN Creatinine Glucose POC Glucose 55 L 199 H Lactic Acid Calcium Phosphorus Magnesium Direct Bilirubin AST ALT Alkaline Phosphatase Lactate Dehydrogenase Troponin T C-Reactive Protein Total Protein Albumin Prealbumin Triglycerides Cholesterol LDL Cholesterol Direct HDL Cholesterol PTH Intact Urine pH Urine WBC (Auto) Urine Creatinine Urine Total Protein Fluid Total Protein Vancomycin Trough Rheumatoid Factor Complement C4 Miscellaneous Test Crossmatch 10/03/16 10/03/16 10/03/16 05:10 12:14 13:18 WBC RBC Hgb Hct MCV MCH MCHC RDW Plt Count Lymph % (Auto) [place] % (Auto) Lymph # [place] # Baso # Seg Neutrophils % Seg Neuts % (Manual) Lymphocytes % (Manual) Monocytes % (Manual) Eosinophils % (Manual) Basophils % (Manual) Nucleated RBC % Seg Neutrophils # Seg Neutrophils # Man Lymphocytes # (Manual) Monocytes # (Manual) Eosinophils # (Manual) Basophils # (Manual) PT INR Fibrinogen dRVVT Confirm Interp Factor V Activity POC ABG pH POC ABG pCO2 POC ABG pO2 ABG pO2 ABG HCO3 ABG Base Excess ABG Hemoglobin Oxyhemoglobin Sodium 129 L Potassium 3.3 L Chloride 88.8 L Carbon Dioxide 20 L BUN 29 H Creatinine 2.8 H Glucose POC Glucose 68 L 127 H Lactic Acid Calcium 7.2 L Phosphorus Magnesium Direct Bilirubin AST ALT Alkaline Phosphatase Lactate Dehydrogenase Troponin T C-Reactive Protein Total Protein Albumin Prealbumin Triglycerides Cholesterol LDL Cholesterol Direct HDL Cholesterol PTH Intact Urine pH Urine WBC (Auto) Urine Creatinine Urine Total Protein Fluid Total Protein Vancomycin Trough Rheumatoid Factor Complement C4 Miscellaneous Test Crossmatch 10/03/16 10/03/16 10/03/16 14:42 18:21 19:09 WBC RBC Hgb Hct MCV MCH MCHC RDW Plt Count Lymph % (Auto) [place] % (Auto) Lymph # [place] # Baso # Seg Neutrophils % Seg Neuts % (Manual) Lymphocytes % (Manual) Monocytes % (Manual) Eosinophils % (Manual) Basophils % (Manual) Nucleated RBC % Seg Neutrophils # Seg Neutrophils # Man Lymphocytes # (Manual) Monocytes # (Manual) Eosinophils # (Manual) Basophils # (Manual) PT INR Fibrinogen dRVVT Confirm Interp Factor V Activity POC ABG pH 7.499 H POC ABG pCO2 28.4 L POC ABG pO2 44 L ABG pO2 ABG HCO3 ABG Base Excess ABG Hemoglobin Oxyhemoglobin Sodium Potassium Chloride Carbon Dioxide BUN Creatinine Glucose POC Glucose 64 L 205 H Lactic Acid Calcium Phosphorus Magnesium Direct Bilirubin AST ALT Alkaline Phosphatase Lactate Dehydrogenase Troponin T C-Reactive Protein Total Protein Albumin Prealbumin Triglycerides Cholesterol LDL Cholesterol Direct HDL Cholesterol PTH Intact Urine pH Urine WBC (Auto) Urine Creatinine Urine Total Protein Fluid Total Protein Vancomycin Trough Rheumatoid Factor Complement C4 Miscellaneous Test Crossmatch 10/03/16 10/04/16 10/04/16 23:33 04:18 06:30 WBC RBC 2.54 L Hgb 7.1 L Hct 21.7 L MCV MCH MCHC RDW 19.5 H Plt Count 76 L Lymph % (Auto) [place] % (Auto) Lymph # [place] # Baso # Seg Neutrophils % Seg Neuts % (Manual) 88.0 H Lymphocytes % (Manual) 6.0 L Monocytes % (Manual) Eosinophils % (Manual) Basophils % (Manual) Nucleated RBC % Seg Neutrophils # Seg Neutrophils # Man 8.8 H Lymphocytes # (Manual) 0.6 L Monocytes # (Manual) Eosinophils # (Manual) Basophils # (Manual) PT INR Fibrinogen dRVVT Confirm Interp Factor V Activity POC ABG pH 7.461 H POC ABG pCO2 33.6 L POC ABG pO2 211 H ABG pO2 ABG HCO3 ABG Base Excess ABG Hemoglobin Oxyhemoglobin Sodium Potassium Chloride Carbon Dioxide BUN Creatinine Glucose POC Glucose 136 H Lactic Acid Calcium Phosphorus Magnesium Direct Bilirubin AST ALT Alkaline Phosphatase Lactate Dehydrogenase Troponin T C-Reactive Protein Total Protein Albumin Prealbumin Triglycerides Cholesterol LDL Cholesterol Direct HDL Cholesterol PTH Intact Urine pH Urine WBC (Auto) Urine Creatinine Urine Total Protein Fluid Total Protein Vancomycin Trough Rheumatoid Factor Complement C4 Miscellaneous Test Crossmatch 10/04/16 10/04/16 10/04/16 06:30 11:45 17:54 WBC RBC Hgb Hct MCV MCH MCHC RDW Plt Count Lymph % (Auto) [place] % (Auto) Lymph # [place] # Baso # Seg Neutrophils % Seg Neuts % (Manual) Lymphocytes % (Manual) Monocytes % (Manual) Eosinophils % (Manual) Basophils % (Manual) Nucleated RBC % Seg Neutrophils # Seg Neutrophils # Man Lymphocytes # (Manual) Monocytes # (Manual) Eosinophils # (Manual) Basophils # (Manual) PT INR Fibrinogen dRVVT Confirm Interp Factor V Activity POC ABG pH POC ABG pCO2 POC ABG pO2 ABG pO2 ABG HCO3 ABG Base Excess ABG Hemoglobin Oxyhemoglobin Sodium 128 L Potassium Chloride 87.4 L Carbon Dioxide 20 L BUN 34 H Creatinine 2.9 H Glucose 127 H POC Glucose 158 H 160 H Lactic Acid Calcium 7.4 L Phosphorus Magnesium Direct Bilirubin AST ALT Alkaline Phosphatase Lactate Dehydrogenase Troponin T C-Reactive Protein Total Protein Albumin Prealbumin Triglycerides Cholesterol LDL Cholesterol Direct HDL Cholesterol PTH Intact Urine pH Urine WBC (Auto) Urine Creatinine Urine Total Protein Fluid Total Protein Vancomycin Trough Rheumatoid Factor Complement C4 Miscellaneous Test Crossmatch 10/04/16 10/05/16 10/05/16 23:25 04:30 05:00 WBC RBC 2.64 L Hgb 7.5 L Hct 22.6 L MCV MCH MCHC RDW 19.3 H Plt Count 80 L Lymph % (Auto) [place] % (Auto) Lymph # [place] # Baso # Seg Neutrophils % Seg Neuts % (Manual) Lymphocytes % (Manual) 12.0 L Monocytes % (Manual) Eosinophils % (Manual) Basophils % (Manual) Nucleated RBC % Seg Neutrophils # Seg Neutrophils # Man Lymphocytes # (Manual) Monocytes # (Manual) Eosinophils # (Manual) Basophils # (Manual) PT INR Fibrinogen dRVVT Confirm Interp Factor V Activity POC ABG pH 7.475 H POC ABG pCO2 33.3 L POC ABG pO2 140 H ABG pO2 ABG HCO3 ABG Base Excess ABG Hemoglobin Oxyhemoglobin Sodium Potassium Chloride Carbon Dioxide BUN Creatinine Glucose POC Glucose 141 H Lactic Acid Calcium Phosphorus Magnesium Direct Bilirubin AST ALT Alkaline Phosphatase Lactate Dehydrogenase Troponin T C-Reactive Protein Total Protein Albumin Prealbumin Triglycerides Cholesterol LDL Cholesterol Direct HDL Cholesterol PTH Intact Urine pH Urine WBC (Auto) Urine Creatinine Urine Total Protein Fluid Total Protein Vancomycin Trough Rheumatoid Factor Complement C4 Miscellaneous Test Crossmatch 10/05/16 10/05/16 10/05/16 05:00 05:09 12:58 WBC RBC Hgb Hct MCV MCH MCHC RDW Plt Count Lymph % (Auto) [place] % (Auto) Lymph # [place] # Baso # Seg Neutrophils % Seg Neuts % (Manual) Lymphocytes % (Manual) Monocytes % (Manual) Eosinophils % (Manual) Basophils % (Manual) Nucleated RBC % Seg Neutrophils # Seg Neutrophils # Man Lymphocytes # (Manual) Monocytes # (Manual) Eosinophils # (Manual) Basophils # (Manual) PT INR Fibrinogen dRVVT Confirm Interp Factor V Activity POC ABG pH POC ABG pCO2 POC ABG pO2 ABG pO2 ABG HCO3 ABG Base Excess ABG Hemoglobin Oxyhemoglobin Sodium 131 L Potassium Chloride 94.0 L Carbon Dioxide 20 L BUN 22 H Creatinine 2.0 H Glucose 123 H POC Glucose 166 H 179 H Lactic Acid Calcium 7.7 L Phosphorus 2.20 L D Magnesium Direct Bilirubin AST ALT Alkaline Phosphatase Lactate Dehydrogenase Troponin T C-Reactive Protein Total Protein Albumin Prealbumin Triglycerides Cholesterol LDL Cholesterol Direct HDL Cholesterol PTH Intact Urine pH Urine WBC (Auto) Urine Creatinine Urine Total Protein Fluid Total Protein Vancomycin Trough Rheumatoid Factor Complement C4 Miscellaneous Test Crossmatch 10/05/16 10/05/16 10/05/16 15:50 18:53 23:12 WBC RBC Hgb Hct MCV MCH MCHC RDW Plt Count Lymph % (Auto) [place] % (Auto) Lymph # [place] # Baso # Seg Neutrophils % Seg Neuts % (Manual) Lymphocytes % (Manual) Monocytes % (Manual) Eosinophils % (Manual) Basophils % (Manual) Nucleated RBC % Seg Neutrophils # Seg Neutrophils # Man Lymphocytes # (Manual) Monocytes # (Manual) Eosinophils # (Manual) Basophils # (Manual) PT INR Fibrinogen dRVVT Confirm Interp Factor V Activity POC ABG pH POC ABG pCO2 POC ABG pO2 ABG pO2 ABG HCO3 ABG Base Excess ABG Hemoglobin Oxyhemoglobin Sodium Potassium Chloride Carbon Dioxide BUN Creatinine Glucose POC Glucose 150 H 164 H Lactic Acid Calcium Phosphorus Magnesium Direct Bilirubin AST ALT Alkaline Phosphatase Lactate Dehydrogenase Troponin T C-Reactive Protein Total Protein Albumin Prealbumin Triglycerides Cholesterol LDL Cholesterol Direct HDL Cholesterol PTH Intact Urine pH Urine WBC (Auto) Urine Creatinine Urine Total Protein Fluid Total Protein Vancomycin Trough Rheumatoid Factor Complement C4 Miscellaneous Test Crossmatch See Detail 10/06/16 10/06/16 10/06/16 03:50 03:50 04:53 WBC RBC 3.00 L Hgb 8.6 L Hct 25.8 L MCV MCH MCHC RDW 17.9 H Plt Count 65 L Lymph % (Auto) [place] % (Auto) Lymph # [place] # Baso # Seg Neutrophils % Seg Neuts % (Manual) 30.0 L Lymphocytes % (Manual) 5.0 L Monocytes % (Manual) Eosinophils % (Manual) Basophils % (Manual) Nucleated RBC % Seg Neutrophils # Seg Neutrophils # Man Lymphocytes # (Manual) 0.4 L Monocytes # (Manual) Eosinophils # (Manual) Basophils # (Manual) PT INR Fibrinogen dRVVT Confirm Interp Factor V Activity POC ABG pH 7.310 L POC ABG pCO2 49.0 H POC ABG pO2 ABG pO2 ABG HCO3 ABG Base Excess ABG Hemoglobin Oxyhemoglobin Sodium 133 L Potassium Chloride 95.9 L Carbon Dioxide BUN 26 H Creatinine 2.0 H Glucose 116 H POC Glucose Lactic Acid Calcium 7.8 L Phosphorus Magnesium Direct Bilirubin AST ALT Alkaline Phosphatase Lactate Dehydrogenase Troponin T C-Reactive Protein Total Protein Albumin Prealbumin Triglycerides Cholesterol LDL Cholesterol Direct HDL Cholesterol PTH Intact Urine pH Urine WBC (Auto) Urine Creatinine Urine Total Protein Fluid Total Protein Vancomycin Trough Rheumatoid Factor Complement C4 Miscellaneous Test Crossmatch 10/06/16 10/06/16 10/06/16 05:23 11:52 18:34 WBC RBC Hgb Hct MCV MCH MCHC RDW Plt Count Lymph % (Auto) [place] % (Auto) Lymph # [place] # Baso # Seg Neutrophils % Seg Neuts % (Manual) Lymphocytes % (Manual) Monocytes % (Manual) Eosinophils % (Manual) Basophils % (Manual) Nucleated RBC % Seg Neutrophils # Seg Neutrophils # Man Lymphocytes # (Manual) Monocytes # (Manual) Eosinophils # (Manual) Basophils # (Manual) PT INR Fibrinogen dRVVT Confirm Interp Factor V Activity POC ABG pH POC ABG pCO2 POC ABG pO2 ABG pO2 ABG HCO3 ABG Base Excess ABG Hemoglobin Oxyhemoglobin Sodium Potassium Chloride Carbon Dioxide BUN Creatinine Glucose POC Glucose 126 H 116 H 129 H Lactic Acid Calcium Phosphorus Magnesium Direct Bilirubin AST ALT Alkaline Phosphatase Lactate Dehydrogenase Troponin T C-Reactive Protein Total Protein Albumin Prealbumin Triglycerides Cholesterol LDL Cholesterol Direct HDL Cholesterol PTH Intact Urine pH Urine WBC (Auto) Urine Creatinine Urine Total Protein Fluid Total Protein Vancomycin Trough Rheumatoid Factor Complement C4 Miscellaneous Test Crossmatch 10/07/16 10/07/16 10/07/16 03:45 05:00 10:00 WBC 17.0 H RBC 2.68 L Hgb 7.3 L Hct 25.3 L MCV MCH 27 L MCHC 29 L RDW 19.6 H Plt Count 74 L Lymph % (Auto) [place] % (Auto) Lymph # [place] # Baso # Seg Neutrophils % Seg Neuts % (Manual) Lymphocytes % (Manual) 12.0 L Monocytes % (Manual) Eosinophils % (Manual) Basophils % (Manual) Nucleated RBC % 4.0 H Seg Neutrophils # Seg Neutrophils # Man 10.7 H Lymphocytes # (Manual) Monocytes # (Manual) Eosinophils # (Manual) Basophils # (Manual) PT INR Fibrinogen dRVVT Confirm Interp Factor V Activity POC ABG pH POC ABG pCO2 POC ABG pO2 ABG pO2 ABG HCO3 ABG Base Excess ABG Hemoglobin Oxyhemoglobin Sodium 130 L Potassium 3.2 L Chloride 93.9 L Carbon Dioxide 20 L BUN 44 H Creatinine 2.7 H Glucose 129 H POC Glucose Lactic Acid Calcium 7.4 L Phosphorus Magnesium Direct Bilirubin AST ALT 6 L Alkaline Phosphatase 195 H Lactate Dehydrogenase Troponin T C-Reactive Protein Total Protein 4.9 L Albumin 1.0 L Prealbumin Triglycerides Cholesterol LDL Cholesterol Direct HDL Cholesterol PTH Intact Urine pH Urine WBC (Auto) Urine Creatinine Urine Total Protein Fluid Total Protein Vancomycin Trough Rheumatoid Factor Complement C4 Miscellaneous Test Flexitest 1 H Crossmatch 10/07/16 10/07/16 10/07/16 10:00 11:24 18:10 WBC RBC Hgb Hct MCV MCH MCHC RDW Plt Count Lymph % (Auto) [place] % (Auto) Lymph # [place] # Baso # Seg Neutrophils % Seg Neuts % (Manual) Lymphocytes % (Manual) Monocytes % (Manual) Eosinophils % (Manual) Basophils % (Manual) Nucleated RBC % Seg Neutrophils # Seg Neutrophils # Man Lymphocytes # (Manual) Monocytes # (Manual) Eosinophils # (Manual) Basophils # (Manual) PT INR Fibrinogen dRVVT Confirm Interp Factor V Activity POC ABG pH POC ABG pCO2 POC ABG pO2 ABG pO2 ABG HCO3 ABG Base Excess ABG Hemoglobin Oxyhemoglobin Sodium Potassium Chloride Carbon Dioxide BUN Creatinine Glucose POC Glucose 116 H 130 H Lactic Acid Calcium Phosphorus Magnesium Direct Bilirubin AST ALT Alkaline Phosphatase Lactate Dehydrogenase Troponin T C-Reactive Protein 19.40 H Total Protein Albumin Prealbumin Triglycerides Cholesterol LDL Cholesterol Direct HDL Cholesterol PTH Intact Urine pH Urine WBC (Auto) Urine Creatinine Urine Total Protein Fluid Total Protein Vancomycin Trough Rheumatoid Factor Complement C4 Miscellaneous Test Crossmatch 10/07/16 10/08/16 10/08/16 18:30 00:00 04:00 WBC RBC Hgb Hct MCV MCH MCHC RDW Plt Count Lymph % (Auto) [place] % (Auto) Lymph # [place] # Baso # Seg Neutrophils % Seg Neuts % (Manual) Lymphocytes % (Manual) Monocytes % (Manual) Eosinophils % (Manual) Basophils % (Manual) Nucleated RBC % Seg Neutrophils # Seg Neutrophils # Man Lymphocytes # (Manual) Monocytes # (Manual) Eosinophils # (Manual) Basophils # (Manual) PT INR Fibrinogen dRVVT Confirm Interp Factor V Activity POC ABG pH POC ABG pCO2 POC ABG pO2 ABG pO2 ABG HCO3 ABG Base Excess ABG Hemoglobin Oxyhemoglobin Sodium 132 L Potassium 3.3 L Chloride 93.6 L Carbon Dioxide 17 L BUN 59 H Creatinine 2.7 H Glucose 121 H POC Glucose 122 H Lactic Acid Calcium 7.6 L Phosphorus Magnesium Direct Bilirubin AST ALT Alkaline Phosphatase Lactate Dehydrogenase Troponin T C-Reactive Protein Total Protein Albumin Prealbumin Triglycerides Cholesterol LDL Cholesterol Direct HDL Cholesterol PTH Intact Urine pH Urine WBC (Auto) > 182.0 H Urine Creatinine Urine Total Protein Fluid Total Protein Vancomycin Trough Rheumatoid Factor Complement C4 Miscellaneous Test Crossmatch 10/08/16 10/08/16 10/08/16 04:30 05:30 11:51 WBC RBC 5.15 H Hgb 14.4 H D Hct 44.5 H D MCV MCH MCHC RDW 19.5 H Plt Count 56 L Lymph % (Auto) [place] % (Auto) Lymph # [place] # Baso # Seg Neutrophils % Seg Neuts % (Manual) 24.0 L Lymphocytes % (Manual) 8.0 L Monocytes % (Manual) Eosinophils % (Manual) Basophils % (Manual) Nucleated RBC % 9.0 H Seg Neutrophils # Seg Neutrophils # Man Lymphocytes # (Manual) 0.7 L Monocytes # (Manual) Eosinophils # (Manual) Basophils # (Manual) PT INR Fibrinogen dRVVT Confirm Interp Factor V Activity POC ABG pH POC ABG pCO2 POC ABG pO2 ABG pO2 ABG HCO3 ABG Base Excess ABG Hemoglobin Oxyhemoglobin Sodium Potassium Chloride Carbon Dioxide BUN Creatinine Glucose POC Glucose 125 H 150 H Lactic Acid Calcium Phosphorus Magnesium Direct Bilirubin AST ALT Alkaline Phosphatase Lactate Dehydrogenase Troponin T C-Reactive Protein Total Protein Albumin Prealbumin Triglycerides Cholesterol LDL Cholesterol Direct HDL Cholesterol PTH Intact Urine pH Urine WBC (Auto) Urine Creatinine Urine Total Protein Fluid Total Protein Vancomycin Trough Rheumatoid Factor Complement C4 Miscellaneous Test Crossmatch 10/08/16 10/08/16 10/08/16 12:49 17:07 19:30 WBC RBC Hgb 7.1 L D Hct 22.4 L D MCV MCH MCHC RDW Plt Count Lymph % (Auto) [place] % (Auto) Lymph # [place] # Baso # Seg Neutrophils % Seg Neuts % (Manual) Lymphocytes % (Manual) Monocytes % (Manual) Eosinophils % (Manual) Basophils % (Manual) Nucleated RBC % Seg Neutrophils # Seg Neutrophils # Man Lymphocytes # (Manual) Monocytes # (Manual) Eosinophils # (Manual) Basophils # (Manual) PT INR Fibrinogen dRVVT Confirm Interp Factor V Activity POC ABG pH POC ABG pCO2 28.2 L POC ABG pO2 111 H ABG pO2 ABG HCO3 ABG Base Excess ABG Hemoglobin Oxyhemoglobin Sodium Potassium Chloride Carbon Dioxide BUN Creatinine Glucose POC Glucose 145 H Lactic Acid Calcium Phosphorus Magnesium Direct Bilirubin AST ALT Alkaline Phosphatase Lactate Dehydrogenase Troponin T C-Reactive Protein Total Protein Albumin Prealbumin Triglycerides Cholesterol LDL Cholesterol Direct HDL Cholesterol PTH Intact Urine pH Urine WBC (Auto) Urine Creatinine Urine Total Protein Fluid Total Protein Vancomycin Trough Rheumatoid Factor Complement C4 Miscellaneous Test Crossmatch 10/08/16 10/09/16 10/09/16 19:30 03:45 03:45 WBC 12.6 H RBC 2.36 L Hgb 6.7 L Hct 21.1 L MCV MCH MCHC RDW 19.5 H Plt Count 75 L Lymph % (Auto) [place] % (Auto) Lymph # [place] # Baso # Seg Neutrophils % Seg Neuts % (Manual) Lymphocytes % (Manual) Monocytes % (Manual) 10.0 H Eosinophils % (Manual) Basophils % (Manual) Nucleated RBC % 3.0 H Seg Neutrophils # Seg Neutrophils # Man Lymphocytes # (Manual) Monocytes # (Manual) 1.3 H Eosinophils # (Manual) Basophils # (Manual) PT 18.0 H INR 1.41 H Fibrinogen dRVVT Confirm Interp Factor V Activity POC ABG pH POC ABG pCO2 POC ABG pO2 ABG pO2 ABG HCO3 ABG Base Excess ABG Hemoglobin Oxyhemoglobin Sodium 135 L Potassium Chloride Carbon Dioxide 17 L BUN 81 H Creatinine 3.2 H Glucose 109 H POC Glucose Lactic Acid Calcium 7.4 L Phosphorus 4.60 H D Magnesium Direct Bilirubin AST ALT Alkaline Phosphatase Lactate Dehydrogenase Troponin T C-Reactive Protein Total Protein Albumin Prealbumin Triglycerides Cholesterol LDL Cholesterol Direct HDL Cholesterol PTH Intact Urine pH Urine WBC (Auto) Urine Creatinine Urine Total Protein Fluid Total Protein Vancomycin Trough Rheumatoid Factor Complement C4 Miscellaneous Test Crossmatch 10/09/16 10/09/16 10/09/16 03:45 05:14 07:20 WBC RBC Hgb Hct MCV MCH MCHC RDW Plt Count Lymph % (Auto) [place] % (Auto) Lymph # [place] # Baso # Seg Neutrophils % Seg Neuts % (Manual) Lymphocytes % (Manual) Monocytes % (Manual) Eosinophils % (Manual) Basophils % (Manual) Nucleated RBC % Seg Neutrophils # Seg Neutrophils # Man Lymphocytes # (Manual) Monocytes # (Manual) Eosinophils # (Manual) Basophils # (Manual) PT 19.0 H INR 1.51 H Fibrinogen dRVVT Confirm Interp Factor V Activity POC ABG pH POC ABG pCO2 POC ABG pO2 ABG pO2 ABG HCO3 ABG Base Excess ABG Hemoglobin Oxyhemoglobin Sodium Potassium Chloride Carbon Dioxide BUN Creatinine Glucose POC Glucose 151 H Lactic Acid Calcium Phosphorus Magnesium Direct Bilirubin AST ALT Alkaline Phosphatase Lactate Dehydrogenase Troponin T C-Reactive Protein Total Protein Albumin Prealbumin Triglycerides Cholesterol LDL Cholesterol Direct HDL Cholesterol PTH Intact Urine pH Urine WBC (Auto) Urine Creatinine Urine Total Protein Fluid Total Protein Vancomycin Trough Rheumatoid Factor Complement C4 Miscellaneous Test Crossmatch See Detail 10/09/16 10/09/16 10/09/16 11:46 16:20 16:43 WBC RBC Hgb 7.2 L Hct 22.2 L MCV MCH MCHC RDW Plt Count Lymph % (Auto) [place] % (Auto) Lymph # [place] # Baso # Seg Neutrophils % Seg Neuts % (Manual) Lymphocytes % (Manual) Monocytes % (Manual) Eosinophils % (Manual) Basophils % (Manual) Nucleated RBC % Seg Neutrophils # Seg Neutrophils # Man Lymphocytes # (Manual) Monocytes # (Manual) Eosinophils # (Manual) Basophils # (Manual) PT INR Fibrinogen dRVVT Confirm Interp Factor V Activity POC ABG pH POC ABG pCO2 POC ABG pO2 ABG pO2 ABG HCO3 ABG Base Excess ABG Hemoglobin Oxyhemoglobin Sodium Potassium Chloride Carbon Dioxide BUN Creatinine Glucose POC Glucose 133 H 141 H Lactic Acid Calcium Phosphorus Magnesium Direct Bilirubin AST ALT Alkaline Phosphatase Lactate Dehydrogenase Troponin T C-Reactive Protein Total Protein Albumin Prealbumin Triglycerides Cholesterol LDL Cholesterol Direct HDL Cholesterol PTH Intact Urine pH Urine WBC (Auto) Urine Creatinine Urine Total Protein Fluid Total Protein Vancomycin Trough Rheumatoid Factor Complement C4 Miscellaneous Test Crossmatch 10/10/16 10/10/16 10/10/16 05:00 05:00 11:19 WBC 18.5 H RBC 2.19 L Hgb 6.4 L Hct 19.6 L* MCV MCH MCHC RDW 19.3 H Plt Count 93 L Lymph % (Auto) [place] % (Auto) Lymph # [place] # Baso # Seg Neutrophils % Seg Neuts % (Manual) Lymphocytes % (Manual) 10.0 L Monocytes % (Manual) Eosinophils % (Manual) Basophils % (Manual) Nucleated RBC % 4.0 H Seg Neutrophils # Seg Neutrophils # Man 11.3 H Lymphocytes # (Manual) Monocytes # (Manual) Eosinophils # (Manual) Basophils # (Manual) PT INR Fibrinogen dRVVT Confirm Interp Factor V Activity POC ABG pH POC ABG pCO2 POC ABG pO2 ABG pO2 ABG HCO3 ABG Base Excess ABG Hemoglobin Oxyhemoglobin Sodium Potassium 5.7 H D Chloride Carbon Dioxide 16 L BUN 94 H Creatinine 3.1 H Glucose 131 H POC Glucose 153 H Lactic Acid Calcium 8.2 L Phosphorus 5.10 H Magnesium 2.40 H Direct Bilirubin 0.3 H AST ALT < 5 L Alkaline Phosphatase 319 H Lactate Dehydrogenase Troponin T C-Reactive Protein Total Protein 5.1 L Albumin 1.0 L Prealbumin Triglycerides Cholesterol LDL Cholesterol Direct HDL Cholesterol PTH Intact Urine pH Urine WBC (Auto) Urine Creatinine Urine Total Protein Fluid Total Protein Vancomycin Trough Rheumatoid Factor Complement C4 Miscellaneous Test Crossmatch 10/10/16 10/10/16 10/11/16 17:50 23:30 04:15 WBC RBC Hgb Hct MCV MCH MCHC RDW Plt Count Lymph % (Auto) [place] % (Auto) Lymph # [place] # Baso # Seg Neutrophils % Seg Neuts % (Manual) Lymphocytes % (Manual) Monocytes % (Manual) Eosinophils % (Manual) Basophils % (Manual) Nucleated RBC % Seg Neutrophils # Seg Neutrophils # Man Lymphocytes # (Manual) Monocytes # (Manual) Eosinophils # (Manual) Basophils # (Manual) PT INR Fibrinogen dRVVT Confirm Interp Factor V Activity POC ABG pH POC ABG pCO2 POC ABG pO2 ABG pO2 ABG HCO3 ABG Base Excess ABG Hemoglobin Oxyhemoglobin Sodium Potassium Chloride 96.4 L Carbon Dioxide 21 L BUN 57 H Creatinine 2.1 H Glucose 151 H POC Glucose 146 H 141 H Lactic Acid Calcium 8.3 L Phosphorus Magnesium Direct Bilirubin AST ALT Alkaline Phosphatase Lactate Dehydrogenase Troponin T C-Reactive Protein Total Protein Albumin Prealbumin Triglycerides Cholesterol LDL Cholesterol Direct HDL Cholesterol PTH Intact Urine pH Urine WBC (Auto) Urine Creatinine Urine Total Protein Fluid Total Protein Vancomycin Trough Rheumatoid Factor Complement C4 Miscellaneous Test Crossmatch 10/11/16 10/11/16 10/11/16 04:15 04:15 05:30 WBC 28.3 H RBC 3.12 L Hgb 9.3 L Hct 28.7 L D MCV MCH MCHC RDW 17.7 H Plt Count 128 L Lymph % (Auto) [place] % (Auto) Lymph # [place] # Baso # Seg Neutrophils % Seg Neuts % (Manual) Lymphocytes % (Manual) Monocytes % (Manual) Eosinophils % (Manual) Basophils % (Manual) Nucleated RBC % Seg Neutrophils # Seg Neutrophils # Man Lymphocytes # (Manual) Monocytes # (Manual) Eosinophils # (Manual) Basophils # (Manual) PT INR Fibrinogen dRVVT Confirm Interp Factor V Activity POC ABG pH POC ABG pCO2 POC ABG pO2 ABG pO2 ABG HCO3 ABG Base Excess ABG Hemoglobin Oxyhemoglobin Sodium Potassium Chloride Carbon Dioxide BUN Creatinine Glucose POC Glucose 167 H Lactic Acid Calcium Phosphorus Magnesium Direct Bilirubin AST ALT Alkaline Phosphatase Lactate Dehydrogenase Troponin T C-Reactive Protein 15.80 H Total Protein Albumin Prealbumin Triglycerides Cholesterol LDL Cholesterol Direct HDL Cholesterol PTH Intact Urine pH Urine WBC (Auto) Urine Creatinine Urine Total Protein Fluid Total Protein Vancomycin Trough Rheumatoid Factor Complement C4 Miscellaneous Test Crossmatch 10/11/16 10/11/16 10/11/16 11:40 15:49 23:57 WBC RBC Hgb Hct MCV MCH MCHC RDW Plt Count Lymph % (Auto) [place] % (Auto) Lymph # [place] # Baso # Seg Neutrophils % Seg Neuts % (Manual) Lymphocytes % (Manual) Monocytes % (Manual) Eosinophils % (Manual) Basophils % (Manual) Nucleated RBC % Seg Neutrophils # Seg Neutrophils # Man Lymphocytes # (Manual) Monocytes # (Manual) Eosinophils # (Manual) Basophils # (Manual) PT INR Fibrinogen dRVVT Confirm Interp Factor V Activity POC ABG pH POC ABG pCO2 POC ABG pO2 ABG pO2 ABG HCO3 ABG Base Excess ABG Hemoglobin Oxyhemoglobin Sodium Potassium Chloride Carbon Dioxide BUN Creatinine Glucose POC Glucose 139 H 168 H 161 H Lactic Acid Calcium Phosphorus Magnesium Direct Bilirubin AST ALT Alkaline Phosphatase Lactate Dehydrogenase Troponin T C-Reactive Protein Total Protein Albumin Prealbumin Triglycerides Cholesterol LDL Cholesterol Direct HDL Cholesterol PTH Intact Urine pH Urine WBC (Auto) Urine Creatinine Urine Total Protein Fluid Total Protein Vancomycin Trough Rheumatoid Factor Complement C4 Miscellaneous Test Crossmatch 10/12/16 10/12/16 10/12/16 04:40 04:40 05:44 WBC 22.5 H RBC 2.88 L Hgb 8.8 L Hct 26.8 L MCV MCH MCHC RDW 17.8 H Plt Count Lymph % (Auto) [place] % (Auto) Lymph # [place] # Baso # Seg Neutrophils % Seg Neuts % (Manual) Lymphocytes % (Manual) Monocytes % (Manual) Eosinophils % (Manual) Basophils % (Manual) Nucleated RBC % Seg Neutrophils # Seg Neutrophils # Man Lymphocytes # (Manual) Monocytes # (Manual) Eosinophils # (Manual) Basophils # (Manual) PT INR Fibrinogen dRVVT Confirm Interp Factor V Activity POC ABG pH POC ABG pCO2 POC ABG pO2 ABG pO2 ABG HCO3 ABG Base Excess ABG Hemoglobin Oxyhemoglobin Sodium 134 L Potassium Chloride 93.0 L Carbon Dioxide BUN 74 H Creatinine 2.5 H Glucose 137 H POC Glucose 158 H Lactic Acid Calcium 8.2 L Phosphorus Magnesium Direct Bilirubin AST ALT Alkaline Phosphatase Lactate Dehydrogenase Troponin T C-Reactive Protein Total Protein Albumin Prealbumin Triglycerides Cholesterol LDL Cholesterol Direct HDL Cholesterol PTH Intact Urine pH Urine WBC (Auto) Urine Creatinine Urine Total Protein Fluid Total Protein Vancomycin Trough Rheumatoid Factor Complement C4 Miscellaneous Test Crossmatch 10/12/16 10/12/16 10/12/16 12:27 18:18 23:46 WBC RBC Hgb Hct MCV MCH MCHC RDW Plt Count Lymph % (Auto) [place] % (Auto) Lymph # [place] # Baso # Seg Neutrophils % Seg Neuts % (Manual) Lymphocytes % (Manual) Monocytes % (Manual) Eosinophils % (Manual) Basophils % (Manual) Nucleated RBC % Seg Neutrophils # Seg Neutrophils # Man Lymphocytes # (Manual) Monocytes # (Manual) Eosinophils # (Manual) Basophils # (Manual) PT INR Fibrinogen dRVVT Confirm Interp Factor V Activity POC ABG pH POC ABG pCO2 POC ABG pO2 ABG pO2 ABG HCO3 ABG Base Excess ABG Hemoglobin Oxyhemoglobin Sodium Potassium Chloride Carbon Dioxide BUN Creatinine Glucose POC Glucose 153 H 140 H 150 H Lactic Acid Calcium Phosphorus Magnesium Direct Bilirubin AST ALT Alkaline Phosphatase Lactate Dehydrogenase Troponin T C-Reactive Protein Total Protein Albumin Prealbumin Triglycerides Cholesterol LDL Cholesterol Direct HDL Cholesterol PTH Intact Urine pH Urine WBC (Auto) Urine Creatinine Urine Total Protein Fluid Total Protein Vancomycin Trough Rheumatoid Factor Complement C4 Miscellaneous Test Crossmatch 10/13/16 10/13/16 10/13/16 06:22 09:20 12:29 WBC RBC Hgb Hct MCV MCH MCHC RDW Plt Count Lymph % (Auto) [place] % (Auto) Lymph # [place] # Baso # Seg Neutrophils % Seg Neuts % (Manual) Lymphocytes % (Manual) Monocytes % (Manual) Eosinophils % (Manual) Basophils % (Manual) Nucleated RBC % Seg Neutrophils # Seg Neutrophils # Man Lymphocytes # (Manual) Monocytes # (Manual) Eosinophils # (Manual) Basophils # (Manual) PT INR Fibrinogen dRVVT Confirm Interp Factor V Activity POC ABG pH POC ABG pCO2 POC ABG pO2 ABG pO2 ABG HCO3 ABG Base Excess ABG Hemoglobin Oxyhemoglobin Sodium Potassium Chloride Carbon Dioxide BUN Creatinine Glucose POC Glucose 165 H 193 H Lactic Acid Calcium Phosphorus Magnesium Direct Bilirubin AST ALT Alkaline Phosphatase Lactate Dehydrogenase Troponin T C-Reactive Protein Total Protein Albumin Prealbumin Triglycerides Cholesterol LDL Cholesterol Direct HDL Cholesterol PTH Intact Urine pH Urine WBC (Auto) Urine Creatinine Urine Total Protein Fluid Total Protein Vancomycin Trough Rheumatoid Factor Complement C4 Miscellaneous Test Flexitest 1 H Crossmatch 10/13/16 10/13/16 10/13/16 18:09 Unknown Unknown WBC 23.4 H RBC 2.83 L Hgb 8.7 L Hct 26.1 L MCV MCH MCHC RDW 18.1 H Plt Count Lymph % (Auto) [place] % (Auto) Lymph # [place] # Baso # Seg Neutrophils % Seg Neuts % (Manual) Lymphocytes % (Manual) Monocytes % (Manual) Eosinophils % (Manual) Basophils % (Manual) Nucleated RBC % Seg Neutrophils # Seg Neutrophils # Man Lymphocytes # (Manual) Monocytes # (Manual) Eosinophils # (Manual) Basophils # (Manual) PT INR Fibrinogen dRVVT Confirm Interp Factor V Activity POC ABG pH POC ABG pCO2 POC ABG pO2 ABG pO2 ABG HCO3 ABG Base Excess ABG Hemoglobin Oxyhemoglobin Sodium Potassium Chloride 95.8 L Carbon Dioxide BUN 82 H Creatinine 2.6 H Glucose 152 H POC Glucose 166 H Lactic Acid Calcium Phosphorus Magnesium Direct Bilirubin AST ALT Alkaline Phosphatase Lactate Dehydrogenase Troponin T C-Reactive Protein Total Protein Albumin Prealbumin Triglycerides Cholesterol LDL Cholesterol Direct HDL Cholesterol PTH Intact Urine pH Urine WBC (Auto) Urine Creatinine Urine Total Protein Fluid Total Protein Vancomycin Trough Rheumatoid Factor Complement C4 Miscellaneous Test Crossmatch 10/14/16 10/14/16 10/14/16 05:38 06:35 08:10 WBC 20.7 H RBC 2.81 L Hgb 8.4 L Hct 27.2 L MCV MCH MCHC RDW 19.4 H Plt Count Lymph % (Auto) [place] % (Auto) Lymph # [place] # Baso # Seg Neutrophils % Seg Neuts % (Manual) Lymphocytes % (Manual) Monocytes % (Manual) Eosinophils % (Manual) Basophils % (Manual) Nucleated RBC % Seg Neutrophils # Seg Neutrophils # Man Lymphocytes # (Manual) Monocytes # (Manual) Eosinophils # (Manual) Basophils # (Manual) PT INR Fibrinogen dRVVT Confirm Interp Factor V Activity POC ABG pH POC ABG pCO2 POC ABG pO2 ABG pO2 ABG HCO3 ABG Base Excess ABG Hemoglobin Oxyhemoglobin Sodium Potassium Chloride Carbon Dioxide BUN 58 H Creatinine 1.9 H Glucose 169 H POC Glucose 195 H Lactic Acid Calcium Phosphorus Magnesium Direct Bilirubin AST ALT Alkaline Phosphatase Lactate Dehydrogenase Troponin T C-Reactive Protein Total Protein Albumin Prealbumin Triglycerides Cholesterol LDL Cholesterol Direct HDL Cholesterol PTH Intact Urine pH Urine WBC (Auto) Urine Creatinine Urine Total Protein Fluid Total Protein Vancomycin Trough Rheumatoid Factor Complement C4 Miscellaneous Test Crossmatch 10/14/16 10/14/16 10/14/16 11:44 17:13 23:28 WBC RBC Hgb Hct MCV MCH MCHC RDW Plt Count Lymph % (Auto) [place] % (Auto) Lymph # [place] # Baso # Seg Neutrophils % Seg Neuts % (Manual) Lymphocytes % (Manual) Monocytes % (Manual) Eosinophils % (Manual) Basophils % (Manual) Nucleated RBC % Seg Neutrophils # Seg Neutrophils # Man Lymphocytes # (Manual) Monocytes # (Manual) Eosinophils # (Manual) Basophils # (Manual) PT INR Fibrinogen dRVVT Confirm Interp Factor V Activity POC ABG pH POC ABG pCO2 POC ABG pO2 ABG pO2 ABG HCO3 ABG Base Excess ABG Hemoglobin Oxyhemoglobin Sodium Potassium Chloride Carbon Dioxide BUN Creatinine Glucose POC Glucose 174 H 121 H 151 H Lactic Acid Calcium Phosphorus Magnesium Direct Bilirubin AST ALT Alkaline Phosphatase Lactate Dehydrogenase Troponin T C-Reactive Protein Total Protein Albumin Prealbumin Triglycerides Cholesterol LDL Cholesterol Direct HDL Cholesterol PTH Intact Urine pH Urine WBC (Auto) Urine Creatinine Urine Total Protein Fluid Total Protein Vancomycin Trough Rheumatoid Factor Complement C4 Miscellaneous Test Crossmatch 10/15/16 10/15/16 10/15/16 05:06 12:26 17:48 WBC RBC Hgb Hct MCV MCH MCHC RDW Plt Count Lymph % (Auto) [place] % (Auto) Lymph # [place] # Baso # Seg Neutrophils % Seg Neuts % (Manual) Lymphocytes % (Manual) Monocytes % (Manual) Eosinophils % (Manual) Basophils % (Manual) Nucleated RBC % Seg Neutrophils # Seg Neutrophils # Man Lymphocytes # (Manual) Monocytes # (Manual) Eosinophils # (Manual) Basophils # (Manual) PT INR Fibrinogen dRVVT Confirm Interp Factor V Activity POC ABG pH POC ABG pCO2 POC ABG pO2 ABG pO2 ABG HCO3 ABG Base Excess ABG Hemoglobin Oxyhemoglobin Sodium Potassium Chloride Carbon Dioxide BUN Creatinine Glucose POC Glucose 151 H 149 H 153 H Lactic Acid Calcium Phosphorus Magnesium Direct Bilirubin AST ALT Alkaline Phosphatase Lactate Dehydrogenase Troponin T C-Reactive Protein Total Protein Albumin Prealbumin Triglycerides Cholesterol LDL Cholesterol Direct HDL Cholesterol PTH Intact Urine pH Urine WBC (Auto) Urine Creatinine Urine Total Protein Fluid Total Protein Vancomycin Trough Rheumatoid Factor Complement C4 Miscellaneous Test Crossmatch 10/15/16 10/15/16 10/16/16 Unknown Unknown 00:02 WBC 23.4 H RBC 2.78 L Hgb 8.5 L Hct 25.7 L MCV MCH MCHC RDW 18.7 H Plt Count Lymph % (Auto) [place] % (Auto) Lymph # [place] # Baso # Seg Neutrophils % Seg Neuts % (Manual) Lymphocytes % (Manual) Monocytes % (Manual) Eosinophils % (Manual) Basophils % (Manual) Nucleated RBC % Seg Neutrophils # Seg Neutrophils # Man Lymphocytes # (Manual) Monocytes # (Manual) Eosinophils # (Manual) Basophils # (Manual) PT INR Fibrinogen dRVVT Confirm Interp Factor V Activity POC ABG pH POC ABG pCO2 POC ABG pO2 ABG pO2 ABG HCO3 ABG Base Excess ABG Hemoglobin Oxyhemoglobin Sodium Potassium Chloride Carbon Dioxide BUN 73 H Creatinine 2.3 H Glucose 120 H POC Glucose 137 H Lactic Acid Calcium Phosphorus Magnesium Direct Bilirubin AST ALT Alkaline Phosphatase Lactate Dehydrogenase Troponin T C-Reactive Protein Total Protein Albumin Prealbumin Triglycerides Cholesterol LDL Cholesterol Direct HDL Cholesterol PTH Intact Urine pH Urine WBC (Auto) Urine Creatinine Urine Total Protein Fluid Total Protein Vancomycin Trough Rheumatoid Factor Complement C4 Miscellaneous Test Crossmatch 10/16/16 10/16/16 10/16/16 05:44 06:25 06:25 WBC 22.5 H RBC 2.76 L Hgb 8.3 L Hct 25.2 L MCV MCH MCHC RDW 18.3 H Plt Count Lymph % (Auto) [place] % (Auto) Lymph # [place] # Baso # Seg Neutrophils % Seg Neuts % (Manual) Lymphocytes % (Manual) Monocytes % (Manual) Eosinophils % (Manual) Basophils % (Manual) Nucleated RBC % Seg Neutrophils # Seg Neutrophils # Man Lymphocytes # (Manual) Monocytes # (Manual) Eosinophils # (Manual) Basophils # (Manual) PT INR Fibrinogen dRVVT Confirm Interp Factor V Activity POC ABG pH POC ABG pCO2 POC ABG pO2 ABG pO2 ABG HCO3 ABG Base Excess ABG Hemoglobin Oxyhemoglobin Sodium Potassium Chloride Carbon Dioxide BUN 92 H Creatinine 3.0 H Glucose 138 H POC Glucose 110 H Lactic Acid Calcium Phosphorus Magnesium Direct Bilirubin AST ALT Alkaline Phosphatase Lactate Dehydrogenase Troponin T C-Reactive Protein Total Protein Albumin Prealbumin Triglycerides Cholesterol LDL Cholesterol Direct HDL Cholesterol PTH Intact Urine pH Urine WBC (Auto) Urine Creatinine Urine Total Protein Fluid Total Protein Vancomycin Trough Rheumatoid Factor Complement C4 Miscellaneous Test Crossmatch 10/16/16 10/16/16 10/16/16 11:27 11:48 17:36 WBC RBC Hgb Hct MCV MCH MCHC RDW Plt Count Lymph % (Auto) [place] % (Auto) Lymph # [place] # Baso # Seg Neutrophils % Seg Neuts % (Manual) Lymphocytes % (Manual) Monocytes % (Manual) Eosinophils % (Manual) Basophils % (Manual) Nucleated RBC % Seg Neutrophils # Seg Neutrophils # Man Lymphocytes # (Manual) Monocytes # (Manual) Eosinophils # (Manual) Basophils # (Manual) PT INR Fibrinogen dRVVT Confirm Interp Factor V Activity POC ABG pH 7.582 H POC ABG pCO2 27.4 L POC ABG pO2 110 H ABG pO2 ABG HCO3 ABG Base Excess ABG Hemoglobin Oxyhemoglobin Sodium Potassium Chloride Carbon Dioxide BUN Creatinine Glucose POC Glucose 121 H 133 H Lactic Acid Calcium Phosphorus Magnesium Direct Bilirubin AST ALT Alkaline Phosphatase Lactate Dehydrogenase Troponin T C-Reactive Protein Total Protein Albumin Prealbumin Triglycerides Cholesterol LDL Cholesterol Direct HDL Cholesterol PTH Intact Urine pH Urine WBC (Auto) Urine Creatinine Urine Total Protein Fluid Total Protein Vancomycin Trough Rheumatoid Factor Complement C4 Miscellaneous Test Crossmatch 10/16/16 10/17/16 10/17/16 20:48 04:24 04:24 WBC 21.4 H RBC 2.72 L Hgb 8.0 L Hct 25.2 L MCV MCH MCHC RDW 18.0 H Plt Count Lymph % (Auto) [place] % (Auto) Lymph # [place] # Baso # Seg Neutrophils % Seg Neuts % (Manual) Lymphocytes % (Manual) Monocytes % (Manual) Eosinophils % (Manual) Basophils % (Manual) Nucleated RBC % Seg Neutrophils # Seg Neutrophils # Man Lymphocytes # (Manual) Monocytes # (Manual) Eosinophils # (Manual) Basophils # (Manual) PT INR Fibrinogen dRVVT Confirm Interp Factor V Activity POC ABG pH 7.561 H POC ABG pCO2 24.4 L POC ABG pO2 77 L ABG pO2 ABG HCO3 ABG Base Excess ABG Hemoglobin Oxyhemoglobin Sodium 148 H Potassium Chloride Carbon Dioxide BUN 104 H Creatinine 3.0 H Glucose 149 H POC Glucose Lactic Acid Calcium Phosphorus Magnesium Direct Bilirubin AST ALT Alkaline Phosphatase 138 H Lactate Dehydrogenase Troponin T C-Reactive Protein Total Protein 6.2 L Albumin 1.5 L Prealbumin Triglycerides Cholesterol LDL Cholesterol Direct HDL Cholesterol PTH Intact Urine pH Urine WBC (Auto) Urine Creatinine Urine Total Protein Fluid Total Protein Vancomycin Trough Rheumatoid Factor Complement C4 Miscellaneous Test Crossmatch 10/17/16 10/17/16 10/17/16 06:02 12:17 17:14 WBC RBC Hgb Hct MCV MCH MCHC RDW Plt Count Lymph % (Auto) [place] % (Auto) Lymph # [place] # Baso # Seg Neutrophils % Seg Neuts % (Manual) Lymphocytes % (Manual) Monocytes % (Manual) Eosinophils % (Manual) Basophils % (Manual) Nucleated RBC % Seg Neutrophils # Seg Neutrophils # Man Lymphocytes # (Manual) Monocytes # (Manual) Eosinophils # (Manual) Basophils # (Manual) PT INR Fibrinogen dRVVT Confirm Interp Factor V Activity POC ABG pH POC ABG pCO2 POC ABG pO2 ABG pO2 ABG HCO3 ABG Base Excess ABG Hemoglobin Oxyhemoglobin Sodium Potassium Chloride Carbon Dioxide BUN Creatinine Glucose POC Glucose 170 H 167 H 126 H Lactic Acid Calcium Phosphorus Magnesium Direct Bilirubin AST ALT Alkaline Phosphatase Lactate Dehydrogenase Troponin T C-Reactive Protein Total Protein Albumin Prealbumin Triglycerides Cholesterol LDL Cholesterol Direct HDL Cholesterol PTH Intact Urine pH Urine WBC (Auto) Urine Creatinine Urine Total Protein Fluid Total Protein Vancomycin Trough Rheumatoid Factor Complement C4 Miscellaneous Test Crossmatch 10/17/16 10/18/16 10/18/16 23:17 04:00 04:00 WBC 20.7 H RBC 2.47 L Hgb 7.4 L Hct 22.9 L MCV MCH MCHC RDW 17.5 H Plt Count Lymph % (Auto) [place] % (Auto) Lymph # [place] # Baso # Seg Neutrophils % Seg Neuts % (Manual) Lymphocytes % (Manual) Monocytes % (Manual) Eosinophils % (Manual) Basophils % (Manual) Nucleated RBC % Seg Neutrophils # Seg Neutrophils # Man Lymphocytes # (Manual) Monocytes # (Manual) Eosinophils # (Manual) Basophils # (Manual) PT INR Fibrinogen dRVVT Confirm Interp Factor V Activity POC ABG pH POC ABG pCO2 POC ABG pO2 ABG pO2 ABG HCO3 ABG Base Excess ABG Hemoglobin Oxyhemoglobin Sodium 149 H Potassium Chloride 107.9 H Carbon Dioxide 20 L BUN 117 H Creatinine 3.2 H Glucose 119 H POC Glucose 121 H Lactic Acid Calcium Phosphorus Magnesium Direct Bilirubin AST ALT Alkaline Phosphatase Lactate Dehydrogenase Troponin T C-Reactive Protein Total Protein Albumin Prealbumin Triglycerides Cholesterol LDL Cholesterol Direct HDL Cholesterol PTH Intact Urine pH Urine WBC (Auto) Urine Creatinine Urine Total Protein Fluid Total Protein Vancomycin Trough Rheumatoid Factor Complement C4 Miscellaneous Test Crossmatch 10/18/16 10/18/16 10/18/16 05:23 10:46 17:30 WBC RBC Hgb Hct MCV MCH MCHC RDW Plt Count Lymph % (Auto) [place] % (Auto) Lymph # [place] # Baso # Seg Neutrophils % Seg Neuts % (Manual) Lymphocytes % (Manual) Monocytes % (Manual) Eosinophils % (Manual) Basophils % (Manual) Nucleated RBC % Seg Neutrophils # Seg Neutrophils # Man Lymphocytes # (Manual) Monocytes # (Manual) Eosinophils # (Manual) Basophils # (Manual) PT INR Fibrinogen dRVVT Confirm Interp Factor V Activity POC ABG pH POC ABG pCO2 POC ABG pO2 ABG pO2 ABG HCO3 ABG Base Excess ABG Hemoglobin Oxyhemoglobin Sodium Potassium Chloride Carbon Dioxide BUN Creatinine Glucose POC Glucose 119 H 155 H 124 H Lactic Acid Calcium Phosphorus Magnesium Direct Bilirubin AST ALT Alkaline Phosphatase Lactate Dehydrogenase Troponin T C-Reactive Protein Total Protein Albumin Prealbumin Triglycerides Cholesterol LDL Cholesterol Direct HDL Cholesterol PTH Intact Urine pH Urine WBC (Auto) Urine Creatinine Urine Total Protein Fluid Total Protein Vancomycin Trough Rheumatoid Factor Complement C4 Miscellaneous Test Crossmatch 10/19/16 10/19/16 10/19/16 04:00 04:00 05:25 WBC 17.4 H RBC 2.54 L Hgb 7.7 L Hct 23.6 L MCV MCH MCHC RDW 17.3 H Plt Count Lymph % (Auto) [place] % (Auto) Lymph # [place] # Baso # Seg Neutrophils % Seg Neuts % (Manual) Lymphocytes % (Manual) Monocytes % (Manual) Eosinophils % (Manual) Basophils % (Manual) Nucleated RBC % Seg Neutrophils # Seg Neutrophils # Man Lymphocytes # (Manual) Monocytes # (Manual) Eosinophils # (Manual) Basophils # (Manual) PT INR Fibrinogen dRVVT Confirm Interp Factor V Activity POC ABG pH POC ABG pCO2 POC ABG pO2 ABG pO2 ABG HCO3 ABG Base Excess ABG Hemoglobin Oxyhemoglobin Sodium Potassium Chloride Carbon Dioxide BUN 72 H Creatinine 2.1 H Glucose 116 H POC Glucose 119 H Lactic Acid Calcium Phosphorus Magnesium Direct Bilirubin AST ALT Alkaline Phosphatase Lactate Dehydrogenase Troponin T C-Reactive Protein Total Protein Albumin Prealbumin Triglycerides Cholesterol LDL Cholesterol Direct HDL Cholesterol PTH Intact Urine pH Urine WBC (Auto) Urine Creatinine Urine Total Protein Fluid Total Protein Vancomycin Trough Rheumatoid Factor Complement C4 Miscellaneous Test Crossmatch 10/19/16 10/19/16 10/20/16 11:46 23:59 06:00 WBC RBC Hgb Hct MCV MCH MCHC RDW Plt Count Lymph % (Auto) [place] % (Auto) Lymph # [place] # Baso # Seg Neutrophils % Seg Neuts % (Manual) Lymphocytes % (Manual) Monocytes % (Manual) Eosinophils % (Manual) Basophils % (Manual) Nucleated RBC % Seg Neutrophils # Seg Neutrophils # Man Lymphocytes # (Manual) Monocytes # (Manual) Eosinophils # (Manual) Basophils # (Manual) PT INR Fibrinogen dRVVT Confirm Interp Factor V Activity POC ABG pH POC ABG pCO2 POC ABG pO2 ABG pO2 ABG HCO3 ABG Base Excess ABG Hemoglobin Oxyhemoglobin Sodium Potassium Chloride Carbon Dioxide 17 L BUN 94 H Creatinine 2.7 H Glucose POC Glucose 116 H 117 H Lactic Acid Calcium Phosphorus Magnesium Direct Bilirubin AST ALT Alkaline Phosphatase Lactate Dehydrogenase Troponin T C-Reactive Protein Total Protein Albumin Prealbumin Triglycerides Cholesterol LDL Cholesterol Direct HDL Cholesterol PTH Intact Urine pH Urine WBC (Auto) Urine Creatinine Urine Total Protein Fluid Total Protein Vancomycin Trough Rheumatoid Factor Complement C4 Miscellaneous Test Crossmatch 10/20/16 10/20/16 10/20/16 06:00 11:49 16:00 WBC 19.7 H RBC 2.51 L Hgb 7.7 L Hct 23.5 L MCV MCH MCHC RDW 17.5 H Plt Count Lymph % (Auto) [place] % (Auto) Lymph # [place] # Baso # Seg Neutrophils % Seg Neuts % (Manual) Lymphocytes % (Manual) Monocytes % (Manual) Eosinophils % (Manual) Basophils % (Manual) Nucleated RBC % Seg Neutrophils # Seg Neutrophils # Man Lymphocytes # (Manual) Monocytes # (Manual) Eosinophils # (Manual) Basophils # (Manual) PT INR Fibrinogen dRVVT Confirm Interp Factor V Activity POC ABG pH POC ABG pCO2 POC ABG pO2 ABG pO2 ABG HCO3 ABG Base Excess ABG Hemoglobin Oxyhemoglobin Sodium Potassium Chloride Carbon Dioxide BUN Creatinine Glucose POC Glucose 117 H Lactic Acid Calcium Phosphorus Magnesium Direct Bilirubin AST ALT Alkaline Phosphatase Lactate Dehydrogenase Troponin T C-Reactive Protein Total Protein Albumin Prealbumin Triglycerides Cholesterol LDL Cholesterol Direct HDL Cholesterol PTH Intact Urine pH Urine WBC (Auto) Urine Creatinine Urine Total Protein Fluid Total Protein Vancomycin Trough Rheumatoid Factor Complement C4 Miscellaneous Test Flexitest 1 H Crossmatch 10/20/16 10/20/16 10/21/16 18:36 23:39 04:00 WBC RBC Hgb Hct MCV MCH MCHC RDW Plt Count Lymph % (Auto) [place] % (Auto) Lymph # [place] # Baso # Seg Neutrophils % Seg Neuts % (Manual) Lymphocytes % (Manual) Monocytes % (Manual) Eosinophils % (Manual) Basophils % (Manual) Nucleated RBC % Seg Neutrophils # Seg Neutrophils # Man Lymphocytes # (Manual) Monocytes # (Manual) Eosinophils # (Manual) Basophils # (Manual) PT INR Fibrinogen dRVVT Confirm Interp Factor V Activity POC ABG pH POC ABG pCO2 POC ABG pO2 ABG pO2 ABG HCO3 ABG Base Excess ABG Hemoglobin Oxyhemoglobin Sodium Potassium 5.4 H D Chloride Carbon Dioxide 15 L BUN 110 H Creatinine 3.0 H Glucose POC Glucose 127 H 114 H Lactic Acid Calcium Phosphorus Magnesium Direct Bilirubin AST ALT Alkaline Phosphatase Lactate Dehydrogenase Troponin T C-Reactive Protein Total Protein Albumin Prealbumin Triglycerides Cholesterol LDL Cholesterol Direct HDL Cholesterol PTH Intact Urine pH Urine WBC (Auto) Urine Creatinine Urine Total Protein Fluid Total Protein Vancomycin Trough Rheumatoid Factor Complement C4 Miscellaneous Test Crossmatch 10/21/16 10/21/16 10/22/16 05:54 23:46 05:18 WBC RBC Hgb Hct MCV MCH MCHC RDW Plt Count Lymph % (Auto) [place] % (Auto) Lymph # [place] # Baso # Seg Neutrophils % Seg Neuts % (Manual) Lymphocytes % (Manual) Monocytes % (Manual) Eosinophils % (Manual) Basophils % (Manual) Nucleated RBC % Seg Neutrophils # Seg Neutrophils # Man Lymphocytes # (Manual) Monocytes # (Manual) Eosinophils # (Manual) Basophils # (Manual) PT INR Fibrinogen dRVVT Confirm Interp Factor V Activity POC ABG pH POC ABG pCO2 POC ABG pO2 ABG pO2 ABG HCO3 ABG Base Excess ABG Hemoglobin Oxyhemoglobin Sodium Potassium Chloride Carbon Dioxide BUN Creatinine Glucose POC Glucose 119 H 108 H 109 H Lactic Acid Calcium Phosphorus Magnesium Direct Bilirubin AST ALT Alkaline Phosphatase Lactate Dehydrogenase Troponin T C-Reactive Protein Total Protein Albumin Prealbumin Triglycerides Cholesterol LDL Cholesterol Direct HDL Cholesterol PTH Intact Urine pH Urine WBC (Auto) Urine Creatinine Urine Total Protein Fluid Total Protein Vancomycin Trough Rheumatoid Factor Complement C4 Miscellaneous Test Crossmatch 10/22/16 10/22/16 10/22/16 06:40 06:40 06:40 WBC 14.0 H RBC 2.03 L Hgb 7.0 L Hct 20.5 L MCV 98 H MCH 34 H MCHC 35 H RDW 17.8 H Plt Count Lymph % (Auto) [place] % (Auto) 9.9 H Lymph # [place] # 1.4 H Baso # 0.2 H Seg Neutrophils % 72.0 H Seg Neuts % (Manual) Lymphocytes % (Manual) Monocytes % (Manual) Eosinophils % (Manual) Basophils % (Manual) Nucleated RBC % Seg Neutrophils # 10.0 H Seg Neutrophils # Man Lymphocytes # (Manual) Monocytes # (Manual) Eosinophils # (Manual) Basophils # (Manual) PT INR Fibrinogen dRVVT Confirm Interp Factor V Activity POC ABG pH POC ABG pCO2 POC ABG pO2 ABG pO2 ABG HCO3 ABG Base Excess ABG Hemoglobin Oxyhemoglobin Sodium 130 L D Potassium Chloride 92.4 L Carbon Dioxide 20 L BUN 50 H Creatinine 1.6 H Glucose 589 H* POC Glucose Lactic Acid Calcium 7.8 L D Phosphorus Magnesium 1.60 L Direct Bilirubin AST ALT Alkaline Phosphatase Lactate Dehydrogenase Troponin T C-Reactive Protein Total Protein Albumin Prealbumin Triglycerides Cholesterol LDL Cholesterol Direct HDL Cholesterol PTH Intact Urine pH Urine WBC (Auto) Urine Creatinine Urine Total Protein Fluid Total Protein Vancomycin Trough Rheumatoid Factor Complement C4 Miscellaneous Test Crossmatch 10/22/16 10/22/16 10/22/16 11:39 16:44 23:36 WBC RBC Hgb Hct MCV MCH MCHC RDW Plt Count Lymph % (Auto) [place] % (Auto) Lymph # [place] # Baso # Seg Neutrophils % Seg Neuts % (Manual) Lymphocytes % (Manual) Monocytes % (Manual) Eosinophils % (Manual) Basophils % (Manual) Nucleated RBC % Seg Neutrophils # Seg Neutrophils # Man Lymphocytes # (Manual) Monocytes # (Manual) Eosinophils # (Manual) Basophils # (Manual) PT INR Fibrinogen dRVVT Confirm Interp Factor V Activity POC ABG pH POC ABG pCO2 POC ABG pO2 ABG pO2 ABG HCO3 ABG Base Excess ABG Hemoglobin Oxyhemoglobin Sodium Potassium Chloride Carbon Dioxide BUN Creatinine Glucose POC Glucose 142 H 163 H 123 H Lactic Acid Calcium Phosphorus Magnesium Direct Bilirubin AST ALT Alkaline Phosphatase Lactate Dehydrogenase Troponin T C-Reactive Protein Total Protein Albumin Prealbumin Triglycerides Cholesterol LDL Cholesterol Direct HDL Cholesterol PTH Intact Urine pH Urine WBC (Auto) Urine Creatinine Urine Total Protein Fluid Total Protein Vancomycin Trough Rheumatoid Factor Complement C4 Miscellaneous Test Crossmatch 10/23/16 10/23/16 10/23/16 04:58 06:00 12:12 WBC RBC Hgb Hct MCV MCH MCHC RDW Plt Count Lymph % (Auto) [place] % (Auto) Lymph # [place] # Baso # Seg Neutrophils % Seg Neuts % (Manual) Lymphocytes % (Manual) Monocytes % (Manual) Eosinophils % (Manual) Basophils % (Manual) Nucleated RBC % Seg Neutrophils # Seg Neutrophils # Man Lymphocytes # (Manual) Monocytes # (Manual) Eosinophils # (Manual) Basophils # (Manual) PT INR Fibrinogen dRVVT Confirm Interp Factor V Activity POC ABG pH POC ABG pCO2 POC ABG pO2 ABG pO2 ABG HCO3 ABG Base Excess ABG Hemoglobin Oxyhemoglobin Sodium 133 L Potassium 3.5 L Chloride 96.1 L Carbon Dioxide 18 L BUN 76 H Creatinine 2.1 H Glucose POC Glucose 133 H 138 H Lactic Acid Calcium 8.3 L Phosphorus Magnesium Direct Bilirubin AST ALT Alkaline Phosphatase Lactate Dehydrogenase Troponin T C-Reactive Protein Total Protein Albumin Prealbumin Triglycerides Cholesterol LDL Cholesterol Direct HDL Cholesterol PTH Intact Urine pH Urine WBC (Auto) Urine Creatinine Urine Total Protein Fluid Total Protein Vancomycin Trough Rheumatoid Factor Complement C4 Miscellaneous Test Crossmatch 10/23/16 10/23/16 10/24/16 16:53 23:37 04:00 WBC RBC Hgb Hct MCV MCH MCHC RDW Plt Count Lymph % (Auto) [place] % (Auto) Lymph # [place] # Baso # Seg Neutrophils % Seg Neuts % (Manual) Lymphocytes % (Manual) Monocytes % (Manual) Eosinophils % (Manual) Basophils % (Manual) Nucleated RBC % Seg Neutrophils # Seg Neutrophils # Man Lymphocytes # (Manual) Monocytes # (Manual) Eosinophils # (Manual) Basophils # (Manual) PT INR Fibrinogen dRVVT Confirm Interp Factor V Activity POC ABG pH POC ABG pCO2 POC ABG pO2 ABG pO2 ABG HCO3 ABG Base Excess ABG Hemoglobin Oxyhemoglobin Sodium 131 L Potassium Chloride 94.5 L Carbon Dioxide 19 L BUN 97 H Creatinine 2.6 H Glucose 110 H POC Glucose 125 H 123 H Lactic Acid Calcium 8.3 L Phosphorus Magnesium Direct Bilirubin AST ALT Alkaline Phosphatase Lactate Dehydrogenase Troponin T C-Reactive Protein Total Protein Albumin Prealbumin Triglycerides Cholesterol LDL Cholesterol Direct HDL Cholesterol PTH Intact Urine pH Urine WBC (Auto) Urine Creatinine Urine Total Protein Fluid Total Protein Vancomycin Trough Rheumatoid Factor Complement C4 Miscellaneous Test Crossmatch 10/24/16 10/24/16 10/24/16 07:49 11:39 17:52 WBC RBC Hgb 6.0 L Hct 19.7 L* MCV MCH MCHC RDW Plt Count Lymph % (Auto) [place] % (Auto) Lymph # [place] # Baso # Seg Neutrophils % Seg Neuts % (Manual) Lymphocytes % (Manual) Monocytes % (Manual) Eosinophils % (Manual) Basophils % (Manual) Nucleated RBC % Seg Neutrophils # Seg Neutrophils # Man Lymphocytes # (Manual) Monocytes # (Manual) Eosinophils # (Manual) Basophils # (Manual) PT INR Fibrinogen dRVVT Confirm Interp Factor V Activity POC ABG pH POC ABG pCO2 POC ABG pO2 ABG pO2 ABG HCO3 ABG Base Excess ABG Hemoglobin Oxyhemoglobin Sodium Potassium Chloride Carbon Dioxide BUN Creatinine Glucose POC Glucose 106 H 158 H Lactic Acid Calcium Phosphorus Magnesium Direct Bilirubin AST ALT Alkaline Phosphatase Lactate Dehydrogenase Troponin T C-Reactive Protein Total Protein Albumin Prealbumin Triglycerides Cholesterol LDL Cholesterol Direct HDL Cholesterol PTH Intact Urine pH Urine WBC (Auto) Urine Creatinine Urine Total Protein Fluid Total Protein Vancomycin Trough Rheumatoid Factor Complement C4 Miscellaneous Test Crossmatch 10/24/16 10/24/16 10/24/16 20:00 22:27 Unknown WBC RBC Hgb 9.4 L D Hct 27.5 L D MCV MCH MCHC RDW Plt Count Lymph % (Auto) [place] % (Auto) Lymph # [place] # Baso # Seg Neutrophils % Seg Neuts % (Manual) Lymphocytes % (Manual) Monocytes % (Manual) Eosinophils % (Manual) Basophils % (Manual) Nucleated RBC % Seg Neutrophils # Seg Neutrophils # Man Lymphocytes # (Manual) Monocytes # (Manual) Eosinophils # (Manual) Basophils # (Manual) PT INR Fibrinogen dRVVT Confirm Interp Factor V Activity POC ABG pH POC ABG pCO2 POC ABG pO2 ABG pO2 ABG HCO3 ABG Base Excess ABG Hemoglobin Oxyhemoglobin Sodium Potassium Chloride Carbon Dioxide BUN Creatinine Glucose POC Glucose 125 H Lactic Acid Calcium Phosphorus Magnesium Direct Bilirubin AST ALT Alkaline Phosphatase Lactate Dehydrogenase Troponin T C-Reactive Protein Total Protein Albumin Prealbumin Triglycerides Cholesterol LDL Cholesterol Direct HDL Cholesterol PTH Intact Urine pH Urine WBC (Auto) Urine Creatinine Urine Total Protein Fluid Total Protein Vancomycin Trough Rheumatoid Factor Complement C4 Miscellaneous Test Crossmatch See Detail 10/25/16 10/25/16 10/25/16 04:00 04:00 04:00 WBC 14.2 H RBC 2.98 L Hgb 9.0 L Hct 26.2 L MCV MCH MCHC RDW 16.6 H Plt Count Lymph % (Auto) [place] % (Auto) 10.7 H Lymph # [place] # 1.5 H Baso # Seg Neutrophils % 73.6 H Seg Neuts % (Manual) Lymphocytes % (Manual) Monocytes % (Manual) Eosinophils % (Manual) Basophils % (Manual) Nucleated RBC % Seg Neutrophils # 10.5 H Seg Neutrophils # Man Lymphocytes # (Manual) Monocytes # (Manual) Eosinophils # (Manual) Basophils # (Manual) PT INR Fibrinogen dRVVT Confirm Interp Factor V Activity POC ABG pH POC ABG pCO2 POC ABG pO2 ABG pO2 ABG HCO3 ABG Base Excess ABG Hemoglobin Oxyhemoglobin Sodium 132 L Potassium Chloride 94.7 L Carbon Dioxide BUN 51 H Creatinine 1.6 H Glucose 130 H POC Glucose Lactic Acid Calcium 8.3 L Phosphorus 1.60 L D Magnesium Direct Bilirubin AST ALT Alkaline Phosphatase Lactate Dehydrogenase Troponin T C-Reactive Protein Total Protein Albumin Prealbumin Triglycerides Cholesterol LDL Cholesterol Direct HDL Cholesterol PTH Intact Urine pH Urine WBC (Auto) Urine Creatinine Urine Total Protein Fluid Total Protein Vancomycin Trough Rheumatoid Factor Complement C4 Miscellaneous Test Crossmatch 10/25/16 10/25/16 10/25/16 04:32 11:48 17:22 WBC RBC Hgb Hct MCV MCH MCHC RDW Plt Count Lymph % (Auto) [place] % (Auto) Lymph # [place] # Baso # Seg Neutrophils % Seg Neuts % (Manual) Lymphocytes % (Manual) Monocytes % (Manual) Eosinophils % (Manual) Basophils % (Manual) Nucleated RBC % Seg Neutrophils # Seg Neutrophils # Man Lymphocytes # (Manual) Monocytes # (Manual) Eosinophils # (Manual) Basophils # (Manual) PT INR Fibrinogen dRVVT Confirm Interp Factor V Activity POC ABG pH POC ABG pCO2 POC ABG pO2 ABG pO2 ABG HCO3 ABG Base Excess ABG Hemoglobin Oxyhemoglobin Sodium Potassium Chloride Carbon Dioxide BUN Creatinine Glucose POC Glucose 124 H 171 H 120 H Lactic Acid Calcium Phosphorus Magnesium Direct Bilirubin AST ALT Alkaline Phosphatase Lactate Dehydrogenase Troponin T C-Reactive Protein Total Protein Albumin Prealbumin Triglycerides Cholesterol LDL Cholesterol Direct HDL Cholesterol PTH Intact Urine pH Urine WBC (Auto) Urine Creatinine Urine Total Protein Fluid Total Protein Vancomycin Trough Rheumatoid Factor Complement C4 Miscellaneous Test Crossmatch 10/26/16 10/26/16 10/26/16 04:54 07:06 07:06 WBC 16.9 H RBC 3.06 L Hgb 9.1 L Hct 26.9 L MCV MCH MCHC RDW 16.9 H Plt Count Lymph % (Auto) [place] % (Auto) Lymph # [place] # Baso # Seg Neutrophils % Seg Neuts % (Manual) 71.0 H Lymphocytes % (Manual) 5.0 L Monocytes % (Manual) 12.0 H Eosinophils % (Manual) Basophils % (Manual) Nucleated RBC % Seg Neutrophils # Seg Neutrophils # Man 12.0 H Lymphocytes # (Manual) 0.8 L Monocytes # (Manual) 2.0 H Eosinophils # (Manual) Basophils # (Manual) PT INR Fibrinogen dRVVT Confirm Interp Factor V Activity POC ABG pH POC ABG pCO2 POC ABG pO2 ABG pO2 ABG HCO3 ABG Base Excess ABG Hemoglobin Oxyhemoglobin Sodium 135 L Potassium Chloride 97.1 L Carbon Dioxide BUN 73 H Creatinine 2.2 H Glucose 117 H POC Glucose 123 H Lactic Acid Calcium Phosphorus 1.70 L Magnesium Direct Bilirubin AST ALT Alkaline Phosphatase Lactate Dehydrogenase Troponin T C-Reactive Protein Total Protein Albumin Prealbumin Triglycerides Cholesterol LDL Cholesterol Direct HDL Cholesterol PTH Intact Urine pH Urine WBC (Auto) Urine Creatinine Urine Total Protein Fluid Total Protein Vancomycin Trough Rheumatoid Factor Complement C4 Miscellaneous Test Crossmatch 10/26/16 10/26/16 10/26/16 12:12 17:29 23:42 WBC RBC Hgb Hct MCV MCH MCHC RDW Plt Count Lymph % (Auto) [place] % (Auto) Lymph # [place] # Baso # Seg Neutrophils % Seg Neuts % (Manual) Lymphocytes % (Manual) Monocytes % (Manual) Eosinophils % (Manual) Basophils % (Manual) Nucleated RBC % Seg Neutrophils # Seg Neutrophils # Man Lymphocytes # (Manual) Monocytes # (Manual) Eosinophils # (Manual) Basophils # (Manual) PT INR Fibrinogen dRVVT Confirm Interp Factor V Activity POC ABG pH POC ABG pCO2 POC ABG pO2 ABG pO2 ABG HCO3 ABG Base Excess ABG Hemoglobin Oxyhemoglobin Sodium Potassium Chloride Carbon Dioxide BUN Creatinine Glucose POC Glucose 126 H 161 H 118 H Lactic Acid Calcium Phosphorus Magnesium Direct Bilirubin AST ALT Alkaline Phosphatase Lactate Dehydrogenase Troponin T C-Reactive Protein Total Protein Albumin Prealbumin Triglycerides Cholesterol LDL Cholesterol Direct HDL Cholesterol PTH Intact Urine pH Urine WBC (Auto) Urine Creatinine Urine Total Protein Fluid Total Protein Vancomycin Trough Rheumatoid Factor Complement C4 Miscellaneous Test Crossmatch 10/27/16 10/27/16 10/27/16 05:03 06:30 06:30 WBC 13.9 H RBC 3.09 L Hgb 9.2 L Hct 27.5 L MCV MCH MCHC RDW 17.0 H Plt Count Lymph % (Auto) [place] % (Auto) Lymph # [place] # Baso # Seg Neutrophils % Seg Neuts % (Manual) 78.0 H Lymphocytes % (Manual) Monocytes % (Manual) Eosinophils % (Manual) Basophils % (Manual) Nucleated RBC % 2.0 H Seg Neutrophils # Seg Neutrophils # Man 10.8 H Lymphocytes # (Manual) Monocytes # (Manual) 1.0 H Eosinophils # (Manual) Basophils # (Manual) PT INR Fibrinogen dRVVT Confirm Interp Factor V Activity POC ABG pH POC ABG pCO2 POC ABG pO2 ABG pO2 ABG HCO3 ABG Base Excess ABG Hemoglobin Oxyhemoglobin Sodium Potassium Chloride Carbon Dioxide BUN 40 H Creatinine 1.5 H Glucose 135 H POC Glucose 107 H Lactic Acid Calcium 8.3 L Phosphorus 1.30 L D Magnesium Direct Bilirubin AST ALT Alkaline Phosphatase Lactate Dehydrogenase Troponin T C-Reactive Protein Total Protein Albumin Prealbumin Triglycerides Cholesterol LDL Cholesterol Direct HDL Cholesterol PTH Intact Urine pH Urine WBC (Auto) Urine Creatinine Urine Total Protein Fluid Total Protein Vancomycin Trough Rheumatoid Factor Complement C4 Miscellaneous Test Crossmatch 10/27/16 10/27/16 10/27/16 13:27 18:07 23:40 WBC RBC Hgb Hct MCV MCH MCHC RDW Plt Count Lymph % (Auto) [place] % (Auto) Lymph # [place] # Baso # Seg Neutrophils % Seg Neuts % (Manual) Lymphocytes % (Manual) Monocytes % (Manual) Eosinophils % (Manual) Basophils % (Manual) Nucleated RBC % Seg Neutrophils # Seg Neutrophils # Man Lymphocytes # (Manual) Monocytes # (Manual) Eosinophils # (Manual) Basophils # (Manual) PT INR Fibrinogen dRVVT Confirm Interp Factor V Activity POC ABG pH POC ABG pCO2 POC ABG pO2 ABG pO2 ABG HCO3 ABG Base Excess ABG Hemoglobin Oxyhemoglobin Sodium Potassium Chloride Carbon Dioxide BUN Creatinine Glucose POC Glucose 117 H 121 H 118 H Lactic Acid Calcium Phosphorus Magnesium Direct Bilirubin AST ALT Alkaline Phosphatase Lactate Dehydrogenase Troponin T C-Reactive Protein Total Protein Albumin Prealbumin Triglycerides Cholesterol LDL Cholesterol Direct HDL Cholesterol PTH Intact Urine pH Urine WBC (Auto) Urine Creatinine Urine Total Protein Fluid Total Protein Vancomycin Trough Rheumatoid Factor Complement C4 Miscellaneous Test Crossmatch 10/28/16 10/28/16 10/28/16 05:48 06:45 06:45 WBC 14.7 H RBC 3.05 L Hgb 9.0 L Hct 26.9 L MCV MCH MCHC RDW 16.8 H Plt Count Lymph % (Auto) 8.2 L [place] % (Auto) 8.4 H Lymph # [place] # 1.2 H Baso # Seg Neutrophils % 81.9 H Seg Neuts % (Manual) Lymphocytes % (Manual) Monocytes % (Manual) Eosinophils % (Manual) Basophils % (Manual) Nucleated RBC % Seg Neutrophils # 12.1 H Seg Neutrophils # Man Lymphocytes # (Manual) Monocytes # (Manual) Eosinophils # (Manual) Basophils # (Manual) PT INR Fibrinogen dRVVT Confirm Interp Factor V Activity POC ABG pH POC ABG pCO2 POC ABG pO2 ABG pO2 ABG HCO3 ABG Base Excess ABG Hemoglobin Oxyhemoglobin Sodium Potassium Chloride Carbon Dioxide BUN 60 H Creatinine 1.9 H Glucose 120 H POC Glucose 114 H Lactic Acid Calcium Phosphorus Magnesium Direct Bilirubin AST ALT Alkaline Phosphatase Lactate Dehydrogenase Troponin T C-Reactive Protein Total Protein Albumin Prealbumin Triglycerides Cholesterol LDL Cholesterol Direct HDL Cholesterol PTH Intact Urine pH Urine WBC (Auto) Urine Creatinine Urine Total Protein Fluid Total Protein Vancomycin Trough Rheumatoid Factor Complement C4 Miscellaneous Test Crossmatch 10/28/16 10/28/16 10/29/16 17:08 23:50 05:10 WBC RBC Hgb Hct MCV MCH MCHC RDW Plt Count Lymph % (Auto) [place] % (Auto) Lymph # [place] # Baso # Seg Neutrophils % Seg Neuts % (Manual) Lymphocytes % (Manual) Monocytes % (Manual) Eosinophils % (Manual) Basophils % (Manual) Nucleated RBC % Seg Neutrophils # Seg Neutrophils # Man Lymphocytes # (Manual) Monocytes # (Manual) Eosinophils # (Manual) Basophils # (Manual) PT INR Fibrinogen dRVVT Confirm Interp Factor V Activity POC ABG pH POC ABG pCO2 POC ABG pO2 ABG pO2 ABG HCO3 ABG Base Excess ABG Hemoglobin Oxyhemoglobin Sodium Potassium Chloride Carbon Dioxide BUN Creatinine Glucose POC Glucose 109 H 110 H 124 H Lactic Acid Calcium Phosphorus Magnesium Direct Bilirubin AST ALT Alkaline Phosphatase Lactate Dehydrogenase Troponin T C-Reactive Protein Total Protein Albumin Prealbumin Triglycerides Cholesterol LDL Cholesterol Direct HDL Cholesterol PTH Intact Urine pH Urine WBC (Auto) Urine Creatinine Urine Total Protein Fluid Total Protein Vancomycin Trough Rheumatoid Factor Complement C4 Miscellaneous Test Crossmatch 10/29/16 10/29/16 10/29/16 07:45 07:45 12:19 WBC 14.7 H RBC 3.15 L Hgb 9.3 L Hct 28.9 L MCV MCH MCHC RDW 17.0 H Plt Count Lymph % (Auto) 11.9 L [place] % (Auto) 8.6 H Lymph # [place] # 1.3 H Baso # Seg Neutrophils % 78.1 H Seg Neuts % (Manual) Lymphocytes % (Manual) Monocytes % (Manual) Eosinophils % (Manual) Basophils % (Manual) Nucleated RBC % Seg Neutrophils # 11.4 H Seg Neutrophils # Man Lymphocytes # (Manual) Monocytes # (Manual) Eosinophils # (Manual) Basophils # (Manual) PT INR Fibrinogen dRVVT Confirm Interp Factor V Activity POC ABG pH POC ABG pCO2 POC ABG pO2 ABG pO2 ABG HCO3 ABG Base Excess ABG Hemoglobin Oxyhemoglobin Sodium Potassium 5.1 H Chloride Carbon Dioxide 19 L BUN 78 H Creatinine 2.2 H Glucose 116 H POC Glucose 118 H Lactic Acid Calcium Phosphorus Magnesium Direct Bilirubin AST ALT Alkaline Phosphatase Lactate Dehydrogenase Troponin T C-Reactive Protein Total Protein Albumin Prealbumin Triglycerides Cholesterol LDL Cholesterol Direct HDL Cholesterol PTH Intact Urine pH Urine WBC (Auto) Urine Creatinine Urine Total Protein Fluid Total Protein Vancomycin Trough Rheumatoid Factor Complement C4 Miscellaneous Test Crossmatch 10/29/16 10/30/16 10/30/16 17:49 01:52 03:28 WBC RBC Hgb Hct MCV MCH MCHC RDW Plt Count Lymph % (Auto) [place] % (Auto) Lymph # [place] # Baso # Seg Neutrophils % Seg Neuts % (Manual) Lymphocytes % (Manual) Monocytes % (Manual) Eosinophils % (Manual) Basophils % (Manual) Nucleated RBC % Seg Neutrophils # Seg Neutrophils # Man Lymphocytes # (Manual) Monocytes # (Manual) Eosinophils # (Manual) Basophils # (Manual) PT INR Fibrinogen dRVVT Confirm Interp Factor V Activity POC ABG pH POC ABG pCO2 POC ABG pO2 ABG pO2 ABG HCO3 ABG Base Excess ABG Hemoglobin Oxyhemoglobin Sodium Potassium 5.4 H Chloride 97.5 L Carbon Dioxide 19 L BUN 90 H Creatinine 2.5 H Glucose POC Glucose 120 H 129 H Lactic Acid Calcium Phosphorus 5.20 H Magnesium Direct Bilirubin AST ALT Alkaline Phosphatase Lactate Dehydrogenase Troponin T C-Reactive Protein Total Protein Albumin Prealbumin Triglycerides Cholesterol LDL Cholesterol Direct HDL Cholesterol PTH Intact Urine pH Urine WBC (Auto) Urine Creatinine Urine Total Protein Fluid Total Protein Vancomycin Trough Rheumatoid Factor Complement C4 Miscellaneous Test Crossmatch 10/30/16 10/30/16 10/30/16 03:28 08:19 08:19 WBC 11.6 H 15.9 H RBC 2.75 L 2.82 L Hgb 7.9 L 8.3 L Hct 24.2 L 25.2 L MCV MCH MCHC RDW 16.7 H 17.2 H Plt Count Lymph % (Auto) [place] % (Auto) 9.8 H Lymph # [place] # 1.1 H Baso # Seg Neutrophils % 74.2 H Seg Neuts % (Manual) Lymphocytes % (Manual) Monocytes % (Manual) Eosinophils % (Manual) Basophils % (Manual) Nucleated RBC % Seg Neutrophils # 8.6 H Seg Neutrophils # Man Lymphocytes # (Manual) Monocytes # (Manual) Eosinophils # (Manual) Basophils # (Manual) PT INR Fibrinogen dRVVT Confirm Interp Factor V Activity POC ABG pH POC ABG pCO2 POC ABG pO2 ABG pO2 ABG HCO3 ABG Base Excess ABG Hemoglobin Oxyhemoglobin Sodium Potassium 5.3 H Chloride 97.4 L Carbon Dioxide 19 L BUN 93 H Creatinine 2.6 H Glucose POC Glucose Lactic Acid Calcium Phosphorus Magnesium Direct Bilirubin AST ALT Alkaline Phosphatase Lactate Dehydrogenase Troponin T C-Reactive Protein Total Protein Albumin Prealbumin Triglycerides Cholesterol LDL Cholesterol Direct HDL Cholesterol PTH Intact Urine pH Urine WBC (Auto) Urine Creatinine Urine Total Protein Fluid Total Protein Vancomycin Trough Rheumatoid Factor Complement C4 Miscellaneous Test Crossmatch 10/30/16 10/30/16 10/31/16 17:11 23:56 00:40 WBC RBC Hgb Hct MCV MCH MCHC RDW Plt Count Lymph % (Auto) [place] % (Auto) Lymph # [place] # Baso # Seg Neutrophils % Seg Neuts % (Manual) Lymphocytes % (Manual) Monocytes % (Manual) Eosinophils % (Manual) Basophils % (Manual) Nucleated RBC % Seg Neutrophils # Seg Neutrophils # Man Lymphocytes # (Manual) Monocytes # (Manual) Eosinophils # (Manual) Basophils # (Manual) PT INR Fibrinogen dRVVT Confirm Interp Factor V Activity POC ABG pH POC ABG pCO2 POC ABG pO2 ABG pO2 ABG HCO3 ABG Base Excess ABG Hemoglobin Oxyhemoglobin Sodium Potassium Chloride Carbon Dioxide BUN Creatinine Glucose POC Glucose 106 H 117 H 120 H Lactic Acid Calcium Phosphorus Magnesium Direct Bilirubin AST ALT Alkaline Phosphatase Lactate Dehydrogenase Troponin T C-Reactive Protein Total Protein Albumin Prealbumin Triglycerides Cholesterol LDL Cholesterol Direct HDL Cholesterol PTH Intact Urine pH Urine WBC (Auto) Urine Creatinine Urine Total Protein Fluid Total Protein Vancomycin Trough Rheumatoid Factor Complement C4 Miscellaneous Test Crossmatch 10/31/16 10/31/16 10/31/16 05:43 07:15 07:15 WBC 12.1 H RBC 2.63 L Hgb 7.7 L Hct 23.3 L MCV MCH MCHC RDW 16.7 H Plt Count Lymph % (Auto) 11.7 L [place] % (Auto) 7.7 H Lymph # [place] # 0.9 H Baso # Seg Neutrophils % 78.0 H Seg Neuts % (Manual) Lymphocytes % (Manual) Monocytes % (Manual) Eosinophils % (Manual) Basophils % (Manual) Nucleated RBC % Seg Neutrophils # 9.4 H Seg Neutrophils # Man Lymphocytes # (Manual) Monocytes # (Manual) Eosinophils # (Manual) Basophils # (Manual) PT INR Fibrinogen dRVVT Confirm Interp Factor V Activity POC ABG pH POC ABG pCO2 POC ABG pO2 ABG pO2 ABG HCO3 ABG Base Excess ABG Hemoglobin Oxyhemoglobin Sodium Potassium Chloride 96.4 L Carbon Dioxide 21 L BUN 99 H Creatinine 2.6 H Glucose 144 H POC Glucose 125 H Lactic Acid Calcium Phosphorus 4.80 H Magnesium Direct Bilirubin AST ALT Alkaline Phosphatase Lactate Dehydrogenase Troponin T C-Reactive Protein Total Protein Albumin Prealbumin Triglycerides Cholesterol LDL Cholesterol Direct HDL Cholesterol PTH Intact Urine pH Urine WBC (Auto) Urine Creatinine Urine Total Protein Fluid Total Protein Vancomycin Trough Rheumatoid Factor Complement C4 Miscellaneous Test Crossmatch 10/31/16 10/31/16 11/01/16 11:46 18:34 00:20 WBC RBC Hgb Hct MCV MCH MCHC RDW Plt Count Lymph % (Auto) [place] % (Auto) Lymph # [place] # Baso # Seg Neutrophils % Seg Neuts % (Manual) Lymphocytes % (Manual) Monocytes % (Manual) Eosinophils % (Manual) Basophils % (Manual) Nucleated RBC % Seg Neutrophils # Seg Neutrophils # Man Lymphocytes # (Manual) Monocytes # (Manual) Eosinophils # (Manual) Basophils # (Manual) PT INR Fibrinogen dRVVT Confirm Interp Factor V Activity POC ABG pH POC ABG pCO2 POC ABG pO2 ABG pO2 ABG HCO3 ABG Base Excess ABG Hemoglobin Oxyhemoglobin Sodium Potassium Chloride Carbon Dioxide BUN Creatinine Glucose POC Glucose 159 H 140 H 132 H Lactic Acid Calcium Phosphorus Magnesium Direct Bilirubin AST ALT Alkaline Phosphatase Lactate Dehydrogenase Troponin T C-Reactive Protein Total Protein Albumin Prealbumin Triglycerides Cholesterol LDL Cholesterol Direct HDL Cholesterol PTH Intact Urine pH Urine WBC (Auto) Urine Creatinine Urine Total Protein Fluid Total Protein Vancomycin Trough Rheumatoid Factor Complement C4 Miscellaneous Test Crossmatch 11/01/16 11/01/16 11/01/16 04:55 04:55 06:11 WBC 11.2 H RBC 2.68 L Hgb 7.5 L Hct 23.7 L MCV MCH MCHC RDW 16.1 H Plt Count Lymph % (Auto) [place] % (Auto) 9.8 H Lymph # [place] # 1.1 H Baso # Seg Neutrophils % 70.8 H Seg Neuts % (Manual) Lymphocytes % (Manual) Monocytes % (Manual) Eosinophils % (Manual) Basophils % (Manual) Nucleated RBC % Seg Neutrophils # 7.9 H Seg Neutrophils # Man Lymphocytes # (Manual) Monocytes # (Manual) Eosinophils # (Manual) Basophils # (Manual) PT INR Fibrinogen dRVVT Confirm Interp Factor V Activity POC ABG pH POC ABG pCO2 POC ABG pO2 ABG pO2 ABG HCO3 ABG Base Excess ABG Hemoglobin Oxyhemoglobin Sodium Potassium 3.3 L D Chloride Carbon Dioxide BUN 61 H Creatinine 1.9 H Glucose 114 H POC Glucose 115 H Lactic Acid Calcium Phosphorus 1.80 L D Magnesium Direct Bilirubin AST ALT Alkaline Phosphatase Lactate Dehydrogenase Troponin T C-Reactive Protein Total Protein Albumin Prealbumin Triglycerides Cholesterol LDL Cholesterol Direct HDL Cholesterol PTH Intact Urine pH Urine WBC (Auto) Urine Creatinine Urine Total Protein Fluid Total Protein Vancomycin Trough Rheumatoid Factor Complement C4 Miscellaneous Test Crossmatch 11/01/16 11/01/16 11/01/16 12:29 18:23 23:58 WBC RBC Hgb Hct MCV MCH MCHC RDW Plt Count Lymph % (Auto) [place] % (Auto) Lymph # [place] # Baso # Seg Neutrophils % Seg Neuts % (Manual) Lymphocytes % (Manual) Monocytes % (Manual) Eosinophils % (Manual) Basophils % (Manual) Nucleated RBC % Seg Neutrophils # Seg Neutrophils # Man Lymphocytes # (Manual) Monocytes # (Manual) Eosinophils # (Manual) Basophils # (Manual) PT INR Fibrinogen dRVVT Confirm Interp Factor V Activity POC ABG pH POC ABG pCO2 POC ABG pO2 ABG pO2 ABG HCO3 ABG Base Excess ABG Hemoglobin Oxyhemoglobin Sodium Potassium Chloride Carbon Dioxide BUN Creatinine Glucose POC Glucose 142 H 143 H 128 H Lactic Acid Calcium Phosphorus Magnesium Direct Bilirubin AST ALT Alkaline Phosphatase Lactate Dehydrogenase Troponin T C-Reactive Protein Total Protein Albumin Prealbumin Triglycerides Cholesterol LDL Cholesterol Direct HDL Cholesterol PTH Intact Urine pH Urine WBC (Auto) Urine Creatinine Urine Total Protein Fluid Total Protein Vancomycin Trough Rheumatoid Factor Complement C4 Miscellaneous Test Crossmatch 11/02/16 11/02/16 11/02/16 04:16 05:29 11:58 WBC RBC Hgb Hct MCV MCH MCHC RDW Plt Count Lymph % (Auto) [place] % (Auto) Lymph # [place] # Baso # Seg Neutrophils % Seg Neuts % (Manual) Lymphocytes % (Manual) Monocytes % (Manual) Eosinophils % (Manual) Basophils % (Manual) Nucleated RBC % Seg Neutrophils # Seg Neutrophils # Man Lymphocytes # (Manual) Monocytes # (Manual) Eosinophils # (Manual) Basophils # (Manual) PT INR Fibrinogen dRVVT Confirm Interp Factor V Activity POC ABG pH POC ABG pCO2 POC ABG pO2 ABG pO2 ABG HCO3 ABG Base Excess ABG Hemoglobin Oxyhemoglobin Sodium Potassium 3.1 L Chloride Carbon Dioxide BUN 73 H Creatinine 2.3 H Glucose 112 H POC Glucose 135 H 149 H Lactic Acid Calcium Phosphorus Magnesium Direct Bilirubin AST ALT Alkaline Phosphatase Lactate Dehydrogenase Troponin T C-Reactive Protein Total Protein Albumin Prealbumin Triglycerides Cholesterol LDL Cholesterol Direct HDL Cholesterol PTH Intact Urine pH Urine WBC (Auto) Urine Creatinine Urine Total Protein Fluid Total Protein Vancomycin Trough Rheumatoid Factor Complement C4 Miscellaneous Test Crossmatch 11/02/16 11/02/16 11/03/16 17:42 22:54 06:00 WBC RBC Hgb Hct MCV MCH MCHC RDW Plt Count Lymph % (Auto) [place] % (Auto) Lymph # [place] # Baso # Seg Neutrophils % Seg Neuts % (Manual) Lymphocytes % (Manual) Monocytes % (Manual) Eosinophils % (Manual) Basophils % (Manual) Nucleated RBC % Seg Neutrophils # Seg Neutrophils # Man Lymphocytes # (Manual) Monocytes # (Manual) Eosinophils # (Manual) Basophils # (Manual) PT INR Fibrinogen dRVVT Confirm Interp Factor V Activity POC ABG pH POC ABG pCO2 POC ABG pO2 ABG pO2 ABG HCO3 ABG Base Excess ABG Hemoglobin Oxyhemoglobin Sodium Potassium Chloride 96.7 L Carbon Dioxide BUN 41 H Creatinine 1.5 H Glucose 145 H POC Glucose 182 H 115 H Lactic Acid Calcium Phosphorus 1.60 L D Magnesium 1.50 L Direct Bilirubin AST ALT Alkaline Phosphatase Lactate Dehydrogenase Troponin T C-Reactive Protein Total Protein Albumin Prealbumin Triglycerides Cholesterol LDL Cholesterol Direct HDL Cholesterol PTH Intact Urine pH Urine WBC (Auto) Urine Creatinine Urine Total Protein Fluid Total Protein Vancomycin Trough Rheumatoid Factor Complement C4 Miscellaneous Test Crossmatch 11/03/16 11/03/16 11/03/16 11:53 17:45 23:37 WBC RBC Hgb Hct MCV MCH MCHC RDW Plt Count Lymph % (Auto) [place] % (Auto) Lymph # [place] # Baso # Seg Neutrophils % Seg Neuts % (Manual) Lymphocytes % (Manual) Monocytes % (Manual) Eosinophils % (Manual) Basophils % (Manual) Nucleated RBC % Seg Neutrophils # Seg Neutrophils # Man Lymphocytes # (Manual) Monocytes # (Manual) Eosinophils # (Manual) Basophils # (Manual) PT INR Fibrinogen dRVVT Confirm Interp Factor V Activity POC ABG pH POC ABG pCO2 POC ABG pO2 ABG pO2 ABG HCO3 ABG Base Excess ABG Hemoglobin Oxyhemoglobin Sodium Potassium Chloride Carbon Dioxide BUN Creatinine Glucose POC Glucose 131 H 134 H 113 H Lactic Acid Calcium Phosphorus Magnesium Direct Bilirubin AST ALT Alkaline Phosphatase Lactate Dehydrogenase Troponin T C-Reactive Protein Total Protein Albumin Prealbumin Triglycerides Cholesterol LDL Cholesterol Direct HDL Cholesterol PTH Intact Urine pH Urine WBC (Auto) Urine Creatinine Urine Total Protein Fluid Total Protein Vancomycin Trough Rheumatoid Factor Complement C4 Miscellaneous Test Crossmatch 11/04/16 11/04/16 11/04/16 05:41 06:00 12:10 WBC RBC Hgb Hct MCV MCH MCHC RDW Plt Count Lymph % (Auto) [place] % (Auto) Lymph # [place] # Baso # Seg Neutrophils % Seg Neuts % (Manual) Lymphocytes % (Manual) Monocytes % (Manual) Eosinophils % (Manual) Basophils % (Manual) Nucleated RBC % Seg Neutrophils # Seg Neutrophils # Man Lymphocytes # (Manual) Monocytes # (Manual) Eosinophils # (Manual) Basophils # (Manual) PT INR Fibrinogen dRVVT Confirm Interp Factor V Activity POC ABG pH POC ABG pCO2 POC ABG pO2 ABG pO2 ABG HCO3 ABG Base Excess ABG Hemoglobin Oxyhemoglobin Sodium Potassium Chloride 96.7 L Carbon Dioxide BUN 52 H Creatinine 1.9 H Glucose 126 H POC Glucose 137 H 191 H Lactic Acid Calcium Phosphorus Magnesium Direct Bilirubin AST ALT Alkaline Phosphatase Lactate Dehydrogenase Troponin T C-Reactive Protein Total Protein Albumin Prealbumin Triglycerides Cholesterol LDL Cholesterol Direct HDL Cholesterol PTH Intact Urine pH Urine WBC (Auto) Urine Creatinine Urine Total Protein Fluid Total Protein Vancomycin Trough Rheumatoid Factor Complement C4 Miscellaneous Test Crossmatch 11/04/16 11/05/16 11/05/16 22:57 03:10 05:10 WBC RBC Hgb Hct MCV MCH MCHC RDW Plt Count Lymph % (Auto) [place] % (Auto) Lymph # [place] # Baso # Seg Neutrophils % Seg Neuts % (Manual) Lymphocytes % (Manual) Monocytes % (Manual) Eosinophils % (Manual) Basophils % (Manual) Nucleated RBC % Seg Neutrophils # Seg Neutrophils # Man Lymphocytes # (Manual) Monocytes # (Manual) Eosinophils # (Manual) Basophils # (Manual) PT INR Fibrinogen dRVVT Confirm Interp Factor V Activity POC ABG pH POC ABG pCO2 POC ABG pO2 ABG pO2 ABG HCO3 ABG Base Excess ABG Hemoglobin Oxyhemoglobin Sodium 136 L Potassium Chloride 97.2 L Carbon Dioxide BUN 32 H Creatinine 1.3 H Glucose 123 H POC Glucose 125 H 108 H Lactic Acid Calcium 7.8 L Phosphorus Magnesium Direct Bilirubin AST ALT Alkaline Phosphatase Lactate Dehydrogenase Troponin T C-Reactive Protein Total Protein Albumin Prealbumin Triglycerides Cholesterol LDL Cholesterol Direct HDL Cholesterol PTH Intact Urine pH Urine WBC (Auto) Urine Creatinine Urine Total Protein Fluid Total Protein Vancomycin Trough Rheumatoid Factor Complement C4 Miscellaneous Test Crossmatch 11/05/16 11/05/16 11/05/16 12:23 13:09 13:25 WBC RBC Hgb Hct MCV MCH MCHC RDW Plt Count Lymph % (Auto) [place] % (Auto) Lymph # [place] # Baso # Seg Neutrophils % Seg Neuts % (Manual) Lymphocytes % (Manual) Monocytes % (Manual) Eosinophils % (Manual) Basophils % (Manual) Nucleated RBC % Seg Neutrophils # Seg Neutrophils # Man Lymphocytes # (Manual) Monocytes # (Manual) Eosinophils # (Manual) Basophils # (Manual) PT INR Fibrinogen dRVVT Confirm Interp Factor V Activity POC ABG pH POC ABG pCO2 POC ABG pO2 ABG pO2 ABG HCO3 ABG Base Excess ABG Hemoglobin Oxyhemoglobin Sodium Potassium Chloride Carbon Dioxide BUN Creatinine Glucose POC Glucose 124 H Lactic Acid Calcium Phosphorus Magnesium Direct Bilirubin AST ALT Alkaline Phosphatase Lactate Dehydrogenase Troponin T C-Reactive Protein 11.40 H Total Protein Albumin Prealbumin Triglycerides Cholesterol LDL Cholesterol Direct HDL Cholesterol PTH Intact Urine pH 9.0 H Urine WBC (Auto) Urine Creatinine Urine Total Protein Fluid Total Protein Vancomycin Trough Rheumatoid Factor Complement C4 Miscellaneous Test Crossmatch 11/05/16 11/05/16 11/05/16 13:25 17:54 23:42 WBC RBC Hgb Hct MCV MCH MCHC RDW Plt Count Lymph % (Auto) [place] % (Auto) Lymph # [place] # Baso # Seg Neutrophils % Seg Neuts % (Manual) Lymphocytes % (Manual) Monocytes % (Manual) Eosinophils % (Manual) Basophils % (Manual) Nucleated RBC % Seg Neutrophils # Seg Neutrophils # Man Lymphocytes # (Manual) Monocytes # (Manual) Eosinophils # (Manual) Basophils # (Manual) PT INR Fibrinogen dRVVT Confirm Interp Factor V Activity POC ABG pH POC ABG pCO2 POC ABG pO2 ABG pO2 ABG HCO3 ABG Base Excess ABG Hemoglobin Oxyhemoglobin Sodium Potassium Chloride Carbon Dioxide BUN Creatinine Glucose POC Glucose 114 H 134 H Lactic Acid Calcium Phosphorus Magnesium Direct Bilirubin AST ALT Alkaline Phosphatase Lactate Dehydrogenase Troponin T C-Reactive Protein Total Protein Albumin Prealbumin Triglycerides Cholesterol LDL Cholesterol Direct HDL Cholesterol PTH Intact Urine pH Urine WBC (Auto) Urine Creatinine Urine Total Protein Fluid Total Protein Vancomycin Trough Rheumatoid Factor Complement C4 Miscellaneous Test Flexitest 1 H Crossmatch 11/06/16 11/06/16 11/06/16 04:56 06:25 06:25 WBC RBC 2.50 L Hgb 7.3 L Hct 22.5 L MCV MCH MCHC RDW 16.9 H Plt Count Lymph % (Auto) [place] % (Auto) 10.5 H Lymph # [place] # 1.1 H Baso # Seg Neutrophils % Seg Neuts % (Manual) Lymphocytes % (Manual) Monocytes % (Manual) Eosinophils % (Manual) Basophils % (Manual) Nucleated RBC % Seg Neutrophils # Seg Neutrophils # Man Lymphocytes # (Manual) Monocytes # (Manual) Eosinophils # (Manual) Basophils # (Manual) PT INR Fibrinogen dRVVT Confirm Interp Factor V Activity POC ABG pH POC ABG pCO2 POC ABG pO2 ABG pO2 ABG HCO3 ABG Base Excess ABG Hemoglobin Oxyhemoglobin Sodium Potassium 5.1 H Chloride 95.9 L Carbon Dioxide BUN 52 H Creatinine 1.8 H Glucose 117 H POC Glucose 120 H Lactic Acid Calcium Phosphorus Magnesium Direct Bilirubin AST 103 H ALT 77 H Alkaline Phosphatase 285 H Lactate Dehydrogenase Troponin T C-Reactive Protein Total Protein 6.2 L Albumin 1.8 L Prealbumin 0.180 L Triglycerides Cholesterol LDL Cholesterol Direct HDL Cholesterol PTH Intact Urine pH Urine WBC (Auto) Urine Creatinine Urine Total Protein Fluid Total Protein Vancomycin Trough Rheumatoid Factor Complement C4 Miscellaneous Test Crossmatch 11/06/16 11/06/16 11/06/16 11:56 17:14 23:52 WBC RBC Hgb Hct MCV MCH MCHC RDW Plt Count Lymph % (Auto) [place] % (Auto) Lymph # [place] # Baso # Seg Neutrophils % Seg Neuts % (Manual) Lymphocytes % (Manual) Monocytes % (Manual) Eosinophils % (Manual) Basophils % (Manual) Nucleated RBC % Seg Neutrophils # Seg Neutrophils # Man Lymphocytes # (Manual) Monocytes # (Manual) Eosinophils # (Manual) Basophils # (Manual) PT INR Fibrinogen dRVVT Confirm Interp Factor V Activity POC ABG pH POC ABG pCO2 POC ABG pO2 ABG pO2 ABG HCO3 ABG Base Excess ABG Hemoglobin Oxyhemoglobin Sodium Potassium Chloride Carbon Dioxide BUN Creatinine Glucose POC Glucose 141 H 125 H 130 H Lactic Acid Calcium Phosphorus Magnesium Direct Bilirubin AST ALT Alkaline Phosphatase Lactate Dehydrogenase Troponin T C-Reactive Protein Total Protein Albumin Prealbumin Triglycerides Cholesterol LDL Cholesterol Direct HDL Cholesterol PTH Intact Urine pH Urine WBC (Auto) Urine Creatinine Urine Total Protein Fluid Total Protein Vancomycin Trough Rheumatoid Factor Complement C4 Miscellaneous Test Crossmatch 11/07/16 11/07/16 11/07/16 06:30 06:30 09:37 WBC RBC 2.18 L Hgb 6.3 L Hct 19.7 L* MCV MCH MCHC RDW 16.8 H Plt Count Lymph % (Auto) [place] % (Auto) 10.0 H Lymph # [place] # 1.0 H Baso # Seg Neutrophils % Seg Neuts % (Manual) Lymphocytes % (Manual) Monocytes % (Manual) Eosinophils % (Manual) Basophils % (Manual) Nucleated RBC % Seg Neutrophils # Seg Neutrophils # Man Lymphocytes # (Manual) Monocytes # (Manual) Eosinophils # (Manual) Basophils # (Manual) PT INR Fibrinogen dRVVT Confirm Interp Factor V Activity POC ABG pH POC ABG pCO2 POC ABG pO2 ABG pO2 ABG HCO3 ABG Base Excess ABG Hemoglobin Oxyhemoglobin Sodium 135 L Potassium Chloride 95.6 L Carbon Dioxide BUN 70 H Creatinine 2.0 H Glucose 126 H POC Glucose Lactic Acid Calcium Phosphorus Magnesium Direct Bilirubin AST ALT Alkaline Phosphatase Lactate Dehydrogenase Troponin T C-Reactive Protein Total Protein Albumin Prealbumin Triglycerides Cholesterol LDL Cholesterol Direct HDL Cholesterol PTH Intact Urine pH Urine WBC (Auto) Urine Creatinine Urine Total Protein Fluid Total Protein Vancomycin Trough Rheumatoid Factor Complement C4 Miscellaneous Test Crossmatch See Detail 11/07/16 11/07/16 11/07/16 12:52 18:51 21:26 WBC RBC Hgb Hct MCV MCH MCHC RDW Plt Count Lymph % (Auto) [place] % (Auto) Lymph # [place] # Baso # Seg Neutrophils % Seg Neuts % (Manual) Lymphocytes % (Manual) Monocytes % (Manual) Eosinophils % (Manual) Basophils % (Manual) Nucleated RBC % Seg Neutrophils # Seg Neutrophils # Man Lymphocytes # (Manual) Monocytes # (Manual) Eosinophils # (Manual) Basophils # (Manual) PT INR Fibrinogen dRVVT Confirm Interp Factor V Activity POC ABG pH 7.523 H POC ABG pCO2 34.6 L POC ABG pO2 53 L ABG pO2 ABG HCO3 ABG Base Excess ABG Hemoglobin Oxyhemoglobin Sodium Potassium Chloride Carbon Dioxide BUN Creatinine Glucose POC Glucose 142 H 155 H Lactic Acid Calcium Phosphorus Magnesium Direct Bilirubin AST ALT Alkaline Phosphatase Lactate Dehydrogenase Troponin T C-Reactive Protein Total Protein Albumin Prealbumin Triglycerides Cholesterol LDL Cholesterol Direct HDL Cholesterol PTH Intact Urine pH Urine WBC (Auto) Urine Creatinine Urine Total Protein Fluid Total Protein Vancomycin Trough Rheumatoid Factor Complement C4 Miscellaneous Test Crossmatch 11/07/16 11/08/16 11/08/16 21:34 13:03 23:37 WBC RBC 2.63 L Hgb 7.7 L Hct 22.7 L MCV MCH MCHC RDW 17.0 H Plt Count Lymph % (Auto) [place] % (Auto) Lymph # [place] # Baso # Seg Neutrophils % Seg Neuts % (Manual) Lymphocytes % (Manual) Monocytes % (Manual) Eosinophils % (Manual) Basophils % (Manual) Nucleated RBC % Seg Neutrophils # Seg Neutrophils # Man Lymphocytes # (Manual) Monocytes # (Manual) Eosinophils # (Manual) Basophils # (Manual) PT INR Fibrinogen dRVVT Confirm Interp Factor V Activity POC ABG pH 7.478 H POC ABG pCO2 34.0 L POC ABG pO2 50 L ABG pO2 ABG HCO3 ABG Base Excess ABG Hemoglobin Oxyhemoglobin Sodium Potassium Chloride Carbon Dioxide BUN Creatinine Glucose POC Glucose 113 H Lactic Acid Calcium Phosphorus Magnesium Direct Bilirubin AST ALT Alkaline Phosphatase Lactate Dehydrogenase Troponin T C-Reactive Protein Total Protein Albumin Prealbumin Triglycerides Cholesterol LDL Cholesterol Direct HDL Cholesterol PTH Intact Urine pH Urine WBC (Auto) Urine Creatinine Urine Total Protein Fluid Total Protein Vancomycin Trough Rheumatoid Factor Complement C4 Miscellaneous Test Crossmatch 11/09/16 11/09/16 11/09/16 04:35 10:15 18:21 WBC RBC 2.68 L Hgb 7.8 L Hct 23.3 L MCV MCH MCHC RDW 17.0 H Plt Count Lymph % (Auto) [place] % (Auto) 12.1 H Lymph # [place] # 1.1 H Baso # Seg Neutrophils % Seg Neuts % (Manual) Lymphocytes % (Manual) Monocytes % (Manual) Eosinophils % (Manual) Basophils % (Manual) Nucleated RBC % Seg Neutrophils # Seg Neutrophils # Man Lymphocytes # (Manual) Monocytes # (Manual) Eosinophils # (Manual) Basophils # (Manual) PT INR Fibrinogen dRVVT Confirm Interp Factor V Activity POC ABG pH POC ABG pCO2 POC ABG pO2 ABG pO2 ABG HCO3 ABG Base Excess ABG Hemoglobin Oxyhemoglobin Sodium Potassium Chloride Carbon Dioxide BUN 51 H Creatinine 1.8 H Glucose POC Glucose 60 L Lactic Acid Calcium 8.3 L Phosphorus Magnesium Direct Bilirubin AST ALT Alkaline Phosphatase Lactate Dehydrogenase Troponin T C-Reactive Protein Total Protein Albumin Prealbumin Triglycerides Cholesterol LDL Cholesterol Direct HDL Cholesterol PTH Intact Urine pH Urine WBC (Auto) Urine Creatinine Urine Total Protein Fluid Total Protein Vancomycin Trough Rheumatoid Factor Complement C4 Miscellaneous Test Crossmatch 11/09/16 11/10/16 11/10/16 18:55 07:00 11:51 WBC RBC Hgb Hct MCV MCH MCHC RDW Plt Count Lymph % (Auto) [place] % (Auto) Lymph # [place] # Baso # Seg Neutrophils % Seg Neuts % (Manual) Lymphocytes % (Manual) Monocytes % (Manual) Eosinophils % (Manual) Basophils % (Manual) Nucleated RBC % Seg Neutrophils # Seg Neutrophils # Man Lymphocytes # (Manual) Monocytes # (Manual) Eosinophils # (Manual) Basophils # (Manual) PT INR Fibrinogen dRVVT Confirm Interp Factor V Activity POC ABG pH POC ABG pCO2 POC ABG pO2 ABG pO2 ABG HCO3 ABG Base Excess ABG Hemoglobin Oxyhemoglobin Sodium Potassium 3.0 L D Chloride 97.4 L Carbon Dioxide BUN 28 H Creatinine 1.3 H Glucose POC Glucose 68 L 120 H Lactic Acid Calcium 7.8 L Phosphorus Magnesium Direct Bilirubin AST ALT Alkaline Phosphatase Lactate Dehydrogenase Troponin T C-Reactive Protein Total Protein Albumin Prealbumin Triglycerides Cholesterol LDL Cholesterol Direct HDL Cholesterol PTH Intact Urine pH Urine WBC (Auto) Urine Creatinine Urine Total Protein Fluid Total Protein Vancomycin Trough Rheumatoid Factor Complement C4 Miscellaneous Test Crossmatch 11/10/16 11/11/16 11/11/16 14:20 06:59 06:59 WBC RBC 2.81 L Hgb 8.1 L Hct 24.4 L MCV MCH MCHC RDW 16.4 H Plt Count Lymph % (Auto) [place] % (Auto) 10.8 H Lymph # [place] # 1.0 H Baso # Seg Neutrophils % Seg Neuts % (Manual) Lymphocytes % (Manual) Monocytes % (Manual) Eosinophils % (Manual) Basophils % (Manual) Nucleated RBC % Seg Neutrophils # Seg Neutrophils # Man Lymphocytes # (Manual) Monocytes # (Manual) Eosinophils # (Manual) Basophils # (Manual) PT INR Fibrinogen dRVVT Confirm Interp Factor V Activity POC ABG pH POC ABG pCO2 POC ABG pO2 ABG pO2 ABG HCO3 ABG Base Excess ABG Hemoglobin Oxyhemoglobin Sodium Potassium Chloride Carbon Dioxide BUN Creatinine Glucose POC Glucose Lactic Acid Calcium Phosphorus Magnesium Direct Bilirubin AST ALT Alkaline Phosphatase Lactate Dehydrogenase 196 H Troponin T C-Reactive Protein Total Protein 6.1 L Albumin Prealbumin Triglycerides Cholesterol LDL Cholesterol Direct HDL Cholesterol PTH Intact Urine pH Urine WBC (Auto) Urine Creatinine Urine Total Protein Fluid Total Protein < 3.0 L Vancomycin Trough Rheumatoid Factor Complement C4 Miscellaneous Test Crossmatch 11/11/16 11/11/16 11/12/16 06:59 09:50 04:00 WBC RBC Hgb Hct MCV MCH MCHC RDW Plt Count Lymph % (Auto) [place] % (Auto) Lymph # [place] # Baso # Seg Neutrophils % Seg Neuts % (Manual) Lymphocytes % (Manual) Monocytes % (Manual) Eosinophils % (Manual) Basophils % (Manual) Nucleated RBC % Seg Neutrophils # Seg Neutrophils # Man Lymphocytes # (Manual) Monocytes # (Manual) Eosinophils # (Manual) Basophils # (Manual) PT INR 1.18 H Fibrinogen dRVVT Confirm Interp Factor V Activity POC ABG pH POC ABG pCO2 POC ABG pO2 ABG pO2 ABG HCO3 ABG Base Excess ABG Hemoglobin Oxyhemoglobin Sodium 136 L 133 L Potassium Chloride 96.1 L 94.8 L Carbon Dioxide 21 L BUN 37 H 42 H Creatinine 1.8 H 2.0 H Glucose POC Glucose Lactic Acid Calcium Phosphorus Magnesium Direct Bilirubin AST ALT Alkaline Phosphatase Lactate Dehydrogenase Troponin T C-Reactive Protein Total Protein Albumin Prealbumin Triglycerides Cholesterol LDL Cholesterol Direct HDL Cholesterol PTH Intact Urine pH Urine WBC (Auto) Urine Creatinine Urine Total Protein Fluid Total Protein Vancomycin Trough Rheumatoid Factor Complement C4 Miscellaneous Test Crossmatch 11/12/16 11/12/16 11/13/16 04:00 23:55 05:53 WBC RBC Hgb 8.9 L Hct 27.2 L MCV MCH MCHC RDW Plt Count Lymph % (Auto) [place] % (Auto) Lymph # [place] # Baso # Seg Neutrophils % Seg Neuts % (Manual) Lymphocytes % (Manual) Monocytes % (Manual) Eosinophils % (Manual) Basophils % (Manual) Nucleated RBC % Seg Neutrophils # Seg Neutrophils # Man Lymphocytes # (Manual) Monocytes # (Manual) Eosinophils # (Manual) Basophils # (Manual) PT INR Fibrinogen dRVVT Confirm Interp Factor V Activity POC ABG pH POC ABG pCO2 POC ABG pO2 ABG pO2 ABG HCO3 ABG Base Excess ABG Hemoglobin Oxyhemoglobin Sodium Potassium Chloride Carbon Dioxide BUN Creatinine Glucose POC Glucose 132 H 120 H Lactic Acid Calcium Phosphorus Magnesium Direct Bilirubin AST ALT Alkaline Phosphatase Lactate Dehydrogenase Troponin T C-Reactive Protein Total Protein Albumin Prealbumin Triglycerides Cholesterol LDL Cholesterol Direct HDL Cholesterol PTH Intact Urine pH Urine WBC (Auto) Urine Creatinine Urine Total Protein Fluid Total Protein Vancomycin Trough Rheumatoid Factor Complement C4 Miscellaneous Test Crossmatch 11/13/16 11/13/16 11/13/16 11:43 17:09 23:41 WBC RBC Hgb Hct MCV MCH MCHC RDW Plt Count Lymph % (Auto) [place] % (Auto) Lymph # [place] # Baso # Seg Neutrophils % Seg Neuts % (Manual) Lymphocytes % (Manual) Monocytes % (Manual) Eosinophils % (Manual) Basophils % (Manual) Nucleated RBC % Seg Neutrophils # Seg Neutrophils # Man Lymphocytes # (Manual) Monocytes # (Manual) Eosinophils # (Manual) Basophils # (Manual) PT INR Fibrinogen dRVVT Confirm Interp Factor V Activity POC ABG pH POC ABG pCO2 POC ABG pO2 ABG pO2 ABG HCO3 ABG Base Excess ABG Hemoglobin Oxyhemoglobin Sodium Potassium Chloride Carbon Dioxide BUN Creatinine Glucose POC Glucose 114 H 113 H 108 H Lactic Acid Calcium Phosphorus Magnesium Direct Bilirubin AST ALT Alkaline Phosphatase Lactate Dehydrogenase Troponin T C-Reactive Protein Total Protein Albumin Prealbumin Triglycerides Cholesterol LDL Cholesterol Direct HDL Cholesterol PTH Intact Urine pH Urine WBC (Auto) Urine Creatinine Urine Total Protein Fluid Total Protein Vancomycin Trough Rheumatoid Factor Complement C4 Miscellaneous Test Crossmatch 11/13/16 11/15/16 11/15/16 Unknown 00:37 03:30 WBC 11.2 H RBC 2.72 L Hgb 7.6 L Hct 23.4 L MCV MCH MCHC RDW 16.5 H Plt Count Lymph % (Auto) [place] % (Auto) Lymph # [place] # Baso # Seg Neutrophils % Seg Neuts % (Manual) Lymphocytes % (Manual) Monocytes % (Manual) Eosinophils % (Manual) Basophils % (Manual) Nucleated RBC % Seg Neutrophils # Seg Neutrophils # Man Lymphocytes # (Manual) Monocytes # (Manual) Eosinophils # (Manual) Basophils # (Manual) PT INR Fibrinogen dRVVT Confirm Interp Factor V Activity POC ABG pH POC ABG pCO2 POC ABG pO2 ABG pO2 ABG HCO3 ABG Base Excess ABG Hemoglobin Oxyhemoglobin Sodium 135 L Potassium Chloride 95.2 L Carbon Dioxide BUN 52 H Creatinine 2.2 H Glucose POC Glucose 108 H Lactic Acid Calcium Phosphorus Magnesium Direct Bilirubin AST ALT Alkaline Phosphatase Lactate Dehydrogenase Troponin T C-Reactive Protein Total Protein Albumin Prealbumin Triglycerides Cholesterol LDL Cholesterol Direct HDL Cholesterol PTH Intact Urine pH Urine WBC (Auto) Urine Creatinine Urine Total Protein Fluid Total Protein Vancomycin Trough Rheumatoid Factor Complement C4 Miscellaneous Test Crossmatch 11/15/16 11/15/16 11/15/16 03:30 05:04 11:50 WBC RBC Hgb Hct MCV MCH MCHC RDW Plt Count Lymph % (Auto) [place] % (Auto) Lymph # [place] # Baso # Seg Neutrophils % Seg Neuts % (Manual) Lymphocytes % (Manual) Monocytes % (Manual) Eosinophils % (Manual) Basophils % (Manual) Nucleated RBC % Seg Neutrophils # Seg Neutrophils # Man Lymphocytes # (Manual) Monocytes # (Manual) Eosinophils # (Manual) Basophils # (Manual) PT INR Fibrinogen dRVVT Confirm Interp Factor V Activity POC ABG pH POC ABG pCO2 POC ABG pO2 ABG pO2 ABG HCO3 ABG Base Excess ABG Hemoglobin Oxyhemoglobin Sodium Potassium 3.4 L Chloride Carbon Dioxide BUN 25 H Creatinine 1.5 H Glucose 103 H POC Glucose 121 H 144 H Lactic Acid Calcium Phosphorus Magnesium Direct Bilirubin AST ALT Alkaline Phosphatase Lactate Dehydrogenase Troponin T C-Reactive Protein Total Protein Albumin Prealbumin Triglycerides Cholesterol LDL Cholesterol Direct HDL Cholesterol PTH Intact Urine pH Urine WBC (Auto) Urine Creatinine Urine Total Protein Fluid Total Protein Vancomycin Trough Rheumatoid Factor Complement C4 Miscellaneous Test Crossmatch 11/15/16 11/15/16 11/16/16 21:28 23:20 11:44 WBC RBC Hgb Hct MCV MCH MCHC RDW Plt Count Lymph % (Auto) [place] % (Auto) Lymph # [place] # Baso # Seg Neutrophils % Seg Neuts % (Manual) Lymphocytes % (Manual) Monocytes % (Manual) Eosinophils % (Manual) Basophils % (Manual) Nucleated RBC % Seg Neutrophils # Seg Neutrophils # Man Lymphocytes # (Manual) Monocytes # (Manual) Eosinophils # (Manual) Basophils # (Manual) PT INR Fibrinogen dRVVT Confirm Interp Factor V Activity POC ABG pH 7.462 H POC ABG pCO2 POC ABG pO2 71 L ABG pO2 ABG HCO3 ABG Base Excess ABG Hemoglobin Oxyhemoglobin Sodium Potassium Chloride Carbon Dioxide BUN Creatinine Glucose POC Glucose 116 H 133 H Lactic Acid Calcium Phosphorus Magnesium Direct Bilirubin AST ALT Alkaline Phosphatase Lactate Dehydrogenase Troponin T C-Reactive Protein Total Protein Albumin Prealbumin Triglycerides Cholesterol LDL Cholesterol Direct HDL Cholesterol PTH Intact Urine pH Urine WBC (Auto) Urine Creatinine Urine Total Protein Fluid Total Protein Vancomycin Trough Rheumatoid Factor Complement C4 Miscellaneous Test Crossmatch 11/16/16 11/16/16 11/16/16 12:20 17:05 23:35 WBC 11.7 H RBC 2.73 L Hgb 7.6 L Hct 23.7 L MCV MCH MCHC RDW 16.6 H Plt Count Lymph % (Auto) [place] % (Auto) Lymph # [place] # Baso # Seg Neutrophils % Seg Neuts % (Manual) Lymphocytes % (Manual) Monocytes % (Manual) Eosinophils % (Manual) Basophils % (Manual) Nucleated RBC % Seg Neutrophils # Seg Neutrophils # Man Lymphocytes # (Manual) Monocytes # (Manual) Eosinophils # (Manual) Basophils # (Manual) PT INR Fibrinogen dRVVT Confirm Interp Factor V Activity POC ABG pH POC ABG pCO2 POC ABG pO2 ABG pO2 ABG HCO3 ABG Base Excess ABG Hemoglobin Oxyhemoglobin Sodium Potassium Chloride Carbon Dioxide BUN Creatinine Glucose POC Glucose 154 H 125 H Lactic Acid Calcium Phosphorus Magnesium Direct Bilirubin AST ALT Alkaline Phosphatase Lactate Dehydrogenase Troponin T C-Reactive Protein Total Protein Albumin Prealbumin Triglycerides Cholesterol LDL Cholesterol Direct HDL Cholesterol PTH Intact Urine pH Urine WBC (Auto) Urine Creatinine Urine Total Protein Fluid Total Protein Vancomycin Trough Rheumatoid Factor Complement C4 Miscellaneous Test Crossmatch 11/17/16 11/17/16 11/17/16 03:20 03:20 03:20 WBC RBC 2.55 L Hgb 7.3 L Hct 21.9 L MCV MCH MCHC RDW 16.6 H Plt Count Lymph % (Auto) [place] % (Auto) 11.5 H Lymph # [place] # 1.1 H Baso # Seg Neutrophils % Seg Neuts % (Manual) Lymphocytes % (Manual) Monocytes % (Manual) Eosinophils % (Manual) Basophils % (Manual) Nucleated RBC % Seg Neutrophils # Seg Neutrophils # Man Lymphocytes # (Manual) Monocytes # (Manual) Eosinophils # (Manual) Basophils # (Manual) PT 16.8 H INR 1.37 H Fibrinogen dRVVT Confirm Interp Factor V Activity POC ABG pH POC ABG pCO2 POC ABG pO2 ABG pO2 ABG HCO3 ABG Base Excess ABG Hemoglobin Oxyhemoglobin Sodium Potassium 3.5 L Chloride Carbon Dioxide BUN 21 H Creatinine Glucose POC Glucose Lactic Acid Calcium 7.9 L Phosphorus Magnesium Direct Bilirubin AST ALT Alkaline Phosphatase Lactate Dehydrogenase Troponin T C-Reactive Protein Total Protein Albumin Prealbumin Triglycerides Cholesterol LDL Cholesterol Direct HDL Cholesterol PTH Intact Urine pH Urine WBC (Auto) Urine Creatinine Urine Total Protein Fluid Total Protein Vancomycin Trough Rheumatoid Factor Complement C4 Miscellaneous Test Crossmatch 11/17/16 11/17/16 11/17/16 06:34 11:21 21:22 WBC RBC Hgb Hct MCV MCH MCHC RDW Plt Count Lymph % (Auto) [place] % (Auto) Lymph # [place] # Baso # Seg Neutrophils % Seg Neuts % (Manual) Lymphocytes % (Manual) Monocytes % (Manual) Eosinophils % (Manual) Basophils % (Manual) Nucleated RBC % Seg Neutrophils # Seg Neutrophils # Man Lymphocytes # (Manual) Monocytes # (Manual) Eosinophils # (Manual) Basophils # (Manual) PT INR Fibrinogen dRVVT Confirm Interp Factor V Activity POC ABG pH 7.467 H POC ABG pCO2 POC ABG pO2 73 L ABG pO2 ABG HCO3 ABG Base Excess ABG Hemoglobin Oxyhemoglobin Sodium Potassium Chloride Carbon Dioxide BUN Creatinine Glucose POC Glucose 121 H 119 H Lactic Acid Calcium Phosphorus Magnesium Direct Bilirubin AST ALT Alkaline Phosphatase Lactate Dehydrogenase Troponin T C-Reactive Protein Total Protein Albumin Prealbumin Triglycerides Cholesterol LDL Cholesterol Direct HDL Cholesterol PTH Intact Urine pH Urine WBC (Auto) Urine Creatinine Urine Total Protein Fluid Total Protein Vancomycin Trough Rheumatoid Factor Complement C4 Miscellaneous Test Crossmatch 11/18/16 11/18/16 11/19/16 12:16 17:19 00:00 WBC RBC Hgb Hct MCV MCH MCHC RDW Plt Count Lymph % (Auto) [place] % (Auto) Lymph # [place] # Baso # Seg Neutrophils % Seg Neuts % (Manual) Lymphocytes % (Manual) Monocytes % (Manual) Eosinophils % (Manual) Basophils % (Manual) Nucleated RBC % Seg Neutrophils # Seg Neutrophils # Man Lymphocytes # (Manual) Monocytes # (Manual) Eosinophils # (Manual) Basophils # (Manual) PT INR Fibrinogen dRVVT Confirm Interp Factor V Activity POC ABG pH POC ABG pCO2 POC ABG pO2 ABG pO2 ABG HCO3 ABG Base Excess ABG Hemoglobin Oxyhemoglobin Sodium Potassium Chloride Carbon Dioxide BUN Creatinine Glucose POC Glucose 124 H 162 H 139 H Lactic Acid Calcium Phosphorus Magnesium Direct Bilirubin AST ALT Alkaline Phosphatase Lactate Dehydrogenase Troponin T C-Reactive Protein Total Protein Albumin Prealbumin Triglycerides Cholesterol LDL Cholesterol Direct HDL Cholesterol PTH Intact Urine pH Urine WBC (Auto) Urine Creatinine Urine Total Protein Fluid Total Protein Vancomycin Trough Rheumatoid Factor Complement C4 Miscellaneous Test Crossmatch 11/19/16 11/19/16 11/20/16 05:00 12:43 00:40 WBC RBC Hgb Hct MCV MCH MCHC RDW Plt Count Lymph % (Auto) [place] % (Auto) Lymph # [place] # Baso # Seg Neutrophils % Seg Neuts % (Manual) Lymphocytes % (Manual) Monocytes % (Manual) Eosinophils % (Manual) Basophils % (Manual) Nucleated RBC % Seg Neutrophils # Seg Neutrophils # Man Lymphocytes # (Manual) Monocytes # (Manual) Eosinophils # (Manual) Basophils # (Manual) PT INR Fibrinogen dRVVT Confirm Interp Factor V Activity POC ABG pH POC ABG pCO2 POC ABG pO2 ABG pO2 ABG HCO3 ABG Base Excess ABG Hemoglobin Oxyhemoglobin Sodium Potassium Chloride Carbon Dioxide BUN Creatinine Glucose POC Glucose 110 H 125 H 136 H Lactic Acid Calcium Phosphorus Magnesium Direct Bilirubin AST ALT Alkaline Phosphatase Lactate Dehydrogenase Troponin T C-Reactive Protein Total Protein Albumin Prealbumin Triglycerides Cholesterol LDL Cholesterol Direct HDL Cholesterol PTH Intact Urine pH Urine WBC (Auto) Urine Creatinine Urine Total Protein Fluid Total Protein Vancomycin Trough Rheumatoid Factor Complement C4 Miscellaneous Test Crossmatch 11/20/16 11/20/16 11/20/16 05:00 05:00 05:51 WBC 13.1 H RBC 2.74 L Hgb 7.7 L Hct 23.6 L MCV MCH MCHC RDW 16.9 H Plt Count Lymph % (Auto) [place] % (Auto) 10.8 H Lymph # [place] # 1.4 H Baso # Seg Neutrophils % Seg Neuts % (Manual) Lymphocytes % (Manual) Monocytes % (Manual) Eosinophils % (Manual) Basophils % (Manual) Nucleated RBC % Seg Neutrophils # 7.9 H Seg Neutrophils # Man Lymphocytes # (Manual) Monocytes # (Manual) Eosinophils # (Manual) Basophils # (Manual) PT INR Fibrinogen dRVVT Confirm Interp Factor V Activity POC ABG pH POC ABG pCO2 POC ABG pO2 ABG pO2 ABG HCO3 ABG Base Excess ABG Hemoglobin Oxyhemoglobin Sodium Potassium Chloride Carbon Dioxide BUN 31 H Creatinine 1.8 H Glucose 129 H POC Glucose 133 H Lactic Acid Calcium Phosphorus Magnesium Direct Bilirubin AST ALT Alkaline Phosphatase Lactate Dehydrogenase Troponin T C-Reactive Protein Total Protein Albumin Prealbumin Triglycerides Cholesterol LDL Cholesterol Direct HDL Cholesterol PTH Intact Urine pH Urine WBC (Auto) Urine Creatinine Urine Total Protein Fluid Total Protein Vancomycin Trough Rheumatoid Factor Complement C4 Miscellaneous Test Crossmatch 11/20/16 11/20/16 11/21/16 12:40 18:10 01:20 WBC RBC Hgb Hct MCV MCH MCHC RDW Plt Count Lymph % (Auto) [place] % (Auto) Lymph # [place] # Baso # Seg Neutrophils % Seg Neuts % (Manual) Lymphocytes % (Manual) Monocytes % (Manual) Eosinophils % (Manual) Basophils % (Manual) Nucleated RBC % Seg Neutrophils # Seg Neutrophils # Man Lymphocytes # (Manual) Monocytes # (Manual) Eosinophils # (Manual) Basophils # (Manual) PT INR Fibrinogen dRVVT Confirm Interp Factor V Activity POC ABG pH POC ABG pCO2 POC ABG pO2 ABG pO2 ABG HCO3 ABG Base Excess ABG Hemoglobin Oxyhemoglobin Sodium Potassium Chloride Carbon Dioxide BUN Creatinine Glucose POC Glucose 134 H 138 H 136 H Lactic Acid Calcium Phosphorus Magnesium Direct Bilirubin AST ALT Alkaline Phosphatase Lactate Dehydrogenase Troponin T C-Reactive Protein Total Protein Albumin Prealbumin Triglycerides Cholesterol LDL Cholesterol Direct HDL Cholesterol PTH Intact Urine pH Urine WBC (Auto) Urine Creatinine Urine Total Protein Fluid Total Protein Vancomycin Trough Rheumatoid Factor Complement C4 Miscellaneous Test Crossmatch 11/21/16 11/21/16 11/21/16 07:04 07:45 07:45 WBC 22.0 H RBC 2.91 L Hgb 8.2 L Hct 25.4 L MCV MCH MCHC RDW 17.1 H Plt Count Lymph % (Auto) [place] % (Auto) Lymph # [place] # Baso # Seg Neutrophils % Seg Neuts % (Manual) Lymphocytes % (Manual) 8.0 L Monocytes % (Manual) Eosinophils % (Manual) Basophils % (Manual) Nucleated RBC % Seg Neutrophils # Seg Neutrophils # Man 14.7 H Lymphocytes # (Manual) Monocytes # (Manual) 1.1 H Eosinophils # (Manual) Basophils # (Manual) PT INR Fibrinogen dRVVT Confirm Interp Factor V Activity POC ABG pH POC ABG pCO2 POC ABG pO2 ABG pO2 ABG HCO3 ABG Base Excess ABG Hemoglobin Oxyhemoglobin Sodium Potassium Chloride Carbon Dioxide BUN 42 H Creatinine 2.0 H Glucose POC Glucose 108 H Lactic Acid Calcium Phosphorus Magnesium Direct Bilirubin AST ALT Alkaline Phosphatase Lactate Dehydrogenase Troponin T C-Reactive Protein Total Protein Albumin Prealbumin Triglycerides Cholesterol LDL Cholesterol Direct HDL Cholesterol PTH Intact Urine pH Urine WBC (Auto) Urine Creatinine Urine Total Protein Fluid Total Protein Vancomycin Trough Rheumatoid Factor Complement C4 Miscellaneous Test Crossmatch 11/21/16 11/21/16 11/21/16 08:38 10:09 11:20 WBC RBC Hgb Hct MCV MCH MCHC RDW Plt Count Lymph % (Auto) [place] % (Auto) Lymph # [place] # Baso # Seg Neutrophils % Seg Neuts % (Manual) Lymphocytes % (Manual) Monocytes % (Manual) Eosinophils % (Manual) Basophils % (Manual) Nucleated RBC % Seg Neutrophils # Seg Neutrophils # Man Lymphocytes # (Manual) Monocytes # (Manual) Eosinophils # (Manual) Basophils # (Manual) PT INR Fibrinogen dRVVT Confirm Interp Factor V Activity POC ABG pH 7.346 L POC ABG pCO2 34.4 L POC ABG pO2 314 H ABG pO2 ABG HCO3 ABG Base Excess ABG Hemoglobin Oxyhemoglobin Sodium Potassium Chloride Carbon Dioxide BUN Creatinine Glucose POC Glucose 195 H 153 H Lactic Acid Calcium Phosphorus Magnesium Direct Bilirubin AST ALT Alkaline Phosphatase Lactate Dehydrogenase Troponin T C-Reactive Protein Total Protein Albumin Prealbumin Triglycerides Cholesterol LDL Cholesterol Direct HDL Cholesterol PTH Intact Urine pH Urine WBC (Auto) Urine Creatinine Urine Total Protein Fluid Total Protein Vancomycin Trough Rheumatoid Factor Complement C4 Miscellaneous Test Crossmatch 11/21/16 11/22/16 11/22/16 23:37 04:48 05:00 WBC 29.7 H RBC 2.73 L Hgb 7.5 L Hct 24.2 L MCV MCH 27 L MCHC RDW 17.4 H Plt Count Lymph % (Auto) [place] % (Auto) Lymph # [place] # Baso # Seg Neutrophils % Seg Neuts % (Manual) Lymphocytes % (Manual) 7.0 L Monocytes % (Manual) Eosinophils % (Manual) Basophils % (Manual) Nucleated RBC % Seg Neutrophils # Seg Neutrophils # Man 15.4 H Lymphocytes # (Manual) Monocytes # (Manual) Eosinophils # (Manual) Basophils # (Manual) PT INR Fibrinogen dRVVT Confirm Interp Factor V Activity POC ABG pH POC ABG pCO2 24.6 L POC ABG pO2 189 H ABG pO2 ABG HCO3 ABG Base Excess ABG Hemoglobin Oxyhemoglobin Sodium Potassium Chloride Carbon Dioxide BUN Creatinine Glucose POC Glucose 65 L Lactic Acid Calcium Phosphorus Magnesium Direct Bilirubin AST ALT Alkaline Phosphatase Lactate Dehydrogenase Troponin T C-Reactive Protein Total Protein Albumin Prealbumin Triglycerides Cholesterol LDL Cholesterol Direct HDL Cholesterol PTH Intact Urine pH Urine WBC (Auto) Urine Creatinine Urine Total Protein Fluid Total Protein Vancomycin Trough Rheumatoid Factor Complement C4 Miscellaneous Test Crossmatch 11/22/16 11/23/16 11/23/16 05:00 03:44 04:06 WBC RBC 2.52 L Hgb 7.2 L Hct 21.5 L MCV MCH MCHC RDW 17.1 H Plt Count Lymph % (Auto) [place] % (Auto) 12.4 H Lymph # [place] # 1.4 H Baso # Seg Neutrophils % Seg Neuts % (Manual) Lymphocytes % (Manual) Monocytes % (Manual) Eosinophils % (Manual) Basophils % (Manual) Nucleated RBC % Seg Neutrophils # Seg Neutrophils # Man Lymphocytes # (Manual) Monocytes # (Manual) Eosinophils # (Manual) Basophils # (Manual) PT INR Fibrinogen dRVVT Confirm Interp Factor V Activity POC ABG pH 7.493 H POC ABG pCO2 29.5 L POC ABG pO2 49 L ABG pO2 ABG HCO3 ABG Base Excess ABG Hemoglobin Oxyhemoglobin Sodium 134 L Potassium Chloride 95.9 L Carbon Dioxide 14 L D BUN 51 H Creatinine 2.6 H Glucose POC Glucose Lactic Acid Calcium Phosphorus Magnesium Direct Bilirubin AST ALT Alkaline Phosphatase Lactate Dehydrogenase Troponin T C-Reactive Protein Total Protein Albumin Prealbumin Triglycerides Cholesterol LDL Cholesterol Direct HDL Cholesterol PTH Intact Urine pH Urine WBC (Auto) Urine Creatinine Urine Total Protein Fluid Total Protein Vancomycin Trough Rheumatoid Factor Complement C4 Miscellaneous Test Crossmatch 11/23/16 11/23/16 11/24/16 04:06 11:29 06:39 WBC RBC Hgb Hct MCV MCH MCHC RDW Plt Count Lymph % (Auto) [place] % (Auto) Lymph # [place] # Baso # Seg Neutrophils % Seg Neuts % (Manual) Lymphocytes % (Manual) Monocytes % (Manual) Eosinophils % (Manual) Basophils % (Manual) Nucleated RBC % Seg Neutrophils # Seg Neutrophils # Man Lymphocytes # (Manual) Monocytes # (Manual) Eosinophils # (Manual) Basophils # (Manual) PT INR Fibrinogen dRVVT Confirm Interp Factor V Activity POC ABG pH POC ABG pCO2 POC ABG pO2 ABG pO2 ABG HCO3 ABG Base Excess ABG Hemoglobin Oxyhemoglobin Sodium 136 L Potassium Chloride 95.2 L Carbon Dioxide BUN 60 H Creatinine 2.9 H Glucose POC Glucose 69 L 305 H Lactic Acid Calcium Phosphorus Magnesium 1.60 L Direct Bilirubin AST ALT Alkaline Phosphatase Lactate Dehydrogenase Troponin T C-Reactive Protein Total Protein Albumin Prealbumin Triglycerides Cholesterol LDL Cholesterol Direct HDL Cholesterol PTH Intact Urine pH Urine WBC (Auto) Urine Creatinine Urine Total Protein Fluid Total Protein Vancomycin Trough Rheumatoid Factor Complement C4 Miscellaneous Test Crossmatch 11/24/16 11/24/16 11/24/16 06:43 08:08 08:08 WBC 11.2 H RBC 2.47 L Hgb 6.8 L Hct 20.6 L MCV MCH MCHC RDW 17.0 H Plt Count Lymph % (Auto) [place] % (Auto) 10.3 H Lymph # [place] # 1.2 H Baso # Seg Neutrophils % Seg Neuts % (Manual) Lymphocytes % (Manual) Monocytes % (Manual) Eosinophils % (Manual) Basophils % (Manual) Nucleated RBC % Seg Neutrophils # Seg Neutrophils # Man Lymphocytes # (Manual) Monocytes # (Manual) Eosinophils # (Manual) Basophils # (Manual) PT INR Fibrinogen dRVVT Confirm Interp Factor V Activity POC ABG pH POC ABG pCO2 POC ABG pO2 ABG pO2 ABG HCO3 ABG Base Excess ABG Hemoglobin Oxyhemoglobin Sodium 135 L Potassium Chloride 96.3 L Carbon Dioxide BUN 61 H Creatinine 3.1 H Glucose POC Glucose 62 L Lactic Acid Calcium 8.2 L Phosphorus Magnesium Direct Bilirubin AST ALT Alkaline Phosphatase Lactate Dehydrogenase Troponin T C-Reactive Protein Total Protein Albumin Prealbumin Triglycerides Cholesterol LDL Cholesterol Direct HDL Cholesterol PTH Intact Urine pH Urine WBC (Auto) Urine Creatinine Urine Total Protein Fluid Total Protein Vancomycin Trough Rheumatoid Factor Complement C4 Miscellaneous Test Crossmatch 11/24/16 11/24/16 11/24/16 08:34 11:20 12:41 WBC RBC Hgb Hct MCV MCH MCHC RDW Plt Count Lymph % (Auto) [place] % (Auto) Lymph # [place] # Baso # Seg Neutrophils % Seg Neuts % (Manual) Lymphocytes % (Manual) Monocytes % (Manual) Eosinophils % (Manual) Basophils % (Manual) Nucleated RBC % Seg Neutrophils # Seg Neutrophils # Man Lymphocytes # (Manual) Monocytes # (Manual) Eosinophils # (Manual) Basophils # (Manual) PT INR Fibrinogen dRVVT Confirm Interp Factor V Activity POC ABG pH POC ABG pCO2 POC ABG pO2 ABG pO2 ABG HCO3 ABG Base Excess ABG Hemoglobin Oxyhemoglobin Sodium Potassium Chloride Carbon Dioxide BUN Creatinine Glucose POC Glucose 108 H Lactic Acid Calcium Phosphorus Magnesium 1.60 L Direct Bilirubin AST ALT Alkaline Phosphatase Lactate Dehydrogenase Troponin T C-Reactive Protein Total Protein Albumin Prealbumin Triglycerides Cholesterol LDL Cholesterol Direct HDL Cholesterol PTH Intact Urine pH Urine WBC (Auto) Urine Creatinine Urine Total Protein Fluid Total Protein Vancomycin Trough Rheumatoid Factor Complement C4 Miscellaneous Test Crossmatch See Detail 11/25/16 11/25/16 11/25/16 00:03 04:42 04:42 WBC RBC 3.03 L Hgb 8.6 L Hct 25.3 L MCV MCH MCHC RDW 16.2 H Plt Count Lymph % (Auto) [place] % (Auto) 8.1 H Lymph # [place] # Baso # Seg Neutrophils % 71.3 H Seg Neuts % (Manual) Lymphocytes % (Manual) Monocytes % (Manual) Eosinophils % (Manual) Basophils % (Manual) Nucleated RBC % Seg Neutrophils # Seg Neutrophils # Man Lymphocytes # (Manual) Monocytes # (Manual) Eosinophils # (Manual) Basophils # (Manual) PT INR Fibrinogen dRVVT Confirm Interp Factor V Activity POC ABG pH POC ABG pCO2 POC ABG pO2 ABG pO2 ABG HCO3 ABG Base Excess ABG Hemoglobin Oxyhemoglobin Sodium Potassium Chloride Carbon Dioxide BUN 61 H Creatinine 3.0 H Glucose 102 H POC Glucose 113 H Lactic Acid Calcium 8.2 L Phosphorus Magnesium Direct Bilirubin AST ALT Alkaline Phosphatase 142 H Lactate Dehydrogenase Troponin T C-Reactive Protein Total Protein 5.7 L Albumin 1.5 L Prealbumin Triglycerides Cholesterol LDL Cholesterol Direct HDL Cholesterol PTH Intact Urine pH Urine WBC (Auto) Urine Creatinine Urine Total Protein Fluid Total Protein Vancomycin Trough Rheumatoid Factor Complement C4 Miscellaneous Test Crossmatch 11/25/16 11/25/16 11/25/16 05:12 11:31 14:12 WBC RBC Hgb Hct MCV MCH MCHC RDW Plt Count Lymph % (Auto) [place] % (Auto) Lymph # [place] # Baso # Seg Neutrophils % Seg Neuts % (Manual) Lymphocytes % (Manual) Monocytes % (Manual) Eosinophils % (Manual) Basophils % (Manual) Nucleated RBC % Seg Neutrophils # Seg Neutrophils # Man Lymphocytes # (Manual) Monocytes # (Manual) Eosinophils # (Manual) Basophils # (Manual) PT INR Fibrinogen dRVVT Confirm Interp Factor V Activity POC ABG pH 7.487 H POC ABG pCO2 POC ABG pO2 153 H ABG pO2 ABG HCO3 ABG Base Excess ABG Hemoglobin Oxyhemoglobin Sodium Potassium Chloride Carbon Dioxide BUN Creatinine Glucose POC Glucose 131 H 140 H Lactic Acid Calcium Phosphorus Magnesium Direct Bilirubin AST ALT Alkaline Phosphatase Lactate Dehydrogenase Troponin T C-Reactive Protein Total Protein Albumin Prealbumin Triglycerides Cholesterol LDL Cholesterol Direct HDL Cholesterol PTH Intact Urine pH Urine WBC (Auto) Urine Creatinine Urine Total Protein Fluid Total Protein Vancomycin Trough Rheumatoid Factor Complement C4 Miscellaneous Test Crossmatch 11/25/16 11/26/16 11/26/16 17:23 00:09 05:13 WBC RBC 2.94 L Hgb 8.4 L Hct 24.6 L MCV MCH MCHC RDW 16.4 H Plt Count Lymph % (Auto) [place] % (Auto) 12.3 H Lymph # [place] # 1.1 H Baso # Seg Neutrophils % Seg Neuts % (Manual) Lymphocytes % (Manual) Monocytes % (Manual) Eosinophils % (Manual) Basophils % (Manual) Nucleated RBC % Seg Neutrophils # Seg Neutrophils # Man Lymphocytes # (Manual) Monocytes # (Manual) Eosinophils # (Manual) Basophils # (Manual) PT INR Fibrinogen dRVVT Confirm Interp Factor V Activity POC ABG pH POC ABG pCO2 POC ABG pO2 ABG pO2 ABG HCO3 ABG Base Excess ABG Hemoglobin Oxyhemoglobin Sodium Potassium Chloride Carbon Dioxide BUN Creatinine Glucose POC Glucose 146 H 112 H Lactic Acid Calcium Phosphorus Magnesium Direct Bilirubin AST ALT Alkaline Phosphatase Lactate Dehydrogenase Troponin T C-Reactive Protein Total Protein Albumin Prealbumin Triglycerides Cholesterol LDL Cholesterol Direct HDL Cholesterol PTH Intact Urine pH Urine WBC (Auto) Urine Creatinine Urine Total Protein Fluid Total Protein Vancomycin Trough Rheumatoid Factor Complement C4 Miscellaneous Test Crossmatch 11/26/16 11/26/16 11/26/16 05:13 05:28 11:53 WBC RBC Hgb Hct MCV MCH MCHC RDW Plt Count Lymph % (Auto) [place] % (Auto) Lymph # [place] # Baso # Seg Neutrophils % Seg Neuts % (Manual) Lymphocytes % (Manual) Monocytes % (Manual) Eosinophils % (Manual) Basophils % (Manual) Nucleated RBC % Seg Neutrophils # Seg Neutrophils # Man Lymphocytes # (Manual) Monocytes # (Manual) Eosinophils # (Manual) Basophils # (Manual) PT INR Fibrinogen dRVVT Confirm Interp Factor V Activity POC ABG pH POC ABG pCO2 POC ABG pO2 ABG pO2 ABG HCO3 ABG Base Excess ABG Hemoglobin Oxyhemoglobin Sodium Potassium Chloride 97.8 L Carbon Dioxide BUN 37 H Creatinine 2.0 H Glucose 109 H POC Glucose 117 H 111 H Lactic Acid Calcium 7.9 L Phosphorus 1.80 L D Magnesium Direct Bilirubin AST ALT Alkaline Phosphatase Lactate Dehydrogenase Troponin T C-Reactive Protein Total Protein Albumin Prealbumin Triglycerides Cholesterol LDL Cholesterol Direct HDL Cholesterol PTH Intact Urine pH Urine WBC (Auto) Urine Creatinine Urine Total Protein Fluid Total Protein Vancomycin Trough Rheumatoid Factor Complement C4 Miscellaneous Test Crossmatch 11/26/16 11/27/16 11/27/16 17:14 04:50 06:02 WBC RBC Hgb Hct MCV MCH MCHC RDW Plt Count Lymph % (Auto) [place] % (Auto) Lymph # [place] # Baso # Seg Neutrophils % Seg Neuts % (Manual) Lymphocytes % (Manual) Monocytes % (Manual) Eosinophils % (Manual) Basophils % (Manual) Nucleated RBC % Seg Neutrophils # Seg Neutrophils # Man Lymphocytes # (Manual) Monocytes # (Manual) Eosinophils # (Manual) Basophils # (Manual) PT INR Fibrinogen dRVVT Confirm Interp Factor V Activity POC ABG pH POC ABG pCO2 POC ABG pO2 ABG pO2 75.2 L ABG HCO3 26.4 H ABG Base Excess ABG Hemoglobin 7.6 L Oxyhemoglobin 94.8 L Sodium Potassium Chloride Carbon Dioxide BUN 49 H Creatinine 2.3 H Glucose POC Glucose 115 H Lactic Acid Calcium Phosphorus 1.50 L Magnesium Direct Bilirubin AST ALT Alkaline Phosphatase Lactate Dehydrogenase Troponin T C-Reactive Protein Total Protein Albumin Prealbumin Triglycerides Cholesterol LDL Cholesterol Direct HDL Cholesterol PTH Intact Urine pH Urine WBC (Auto) Urine Creatinine Urine Total Protein Fluid Total Protein Vancomycin Trough Rheumatoid Factor Complement C4 Miscellaneous Test Crossmatch 11/27/16 11/27/16 11/27/16 06:02 11:25 17:25 WBC 11.6 H RBC 2.75 L Hgb 7.6 L Hct 23.4 L MCV MCH MCHC RDW 16.5 H Plt Count Lymph % (Auto) [place] % (Auto) Lymph # [place] # Baso # Seg Neutrophils % Seg Neuts % (Manual) Lymphocytes % (Manual) Monocytes % (Manual) Eosinophils % (Manual) Basophils % (Manual) Nucleated RBC % Seg Neutrophils # Seg Neutrophils # Man Lymphocytes # (Manual) Monocytes # (Manual) Eosinophils # (Manual) Basophils # (Manual) PT INR Fibrinogen dRVVT Confirm Interp Factor V Activity POC ABG pH POC ABG pCO2 POC ABG pO2 ABG pO2 ABG HCO3 ABG Base Excess ABG Hemoglobin Oxyhemoglobin Sodium Potassium Chloride Carbon Dioxide BUN Creatinine Glucose POC Glucose 114 H 126 H Lactic Acid Calcium Phosphorus Magnesium Direct Bilirubin AST ALT Alkaline Phosphatase Lactate Dehydrogenase Troponin T C-Reactive Protein Total Protein Albumin Prealbumin Triglycerides Cholesterol LDL Cholesterol Direct HDL Cholesterol PTH Intact Urine pH Urine WBC (Auto) Urine Creatinine Urine Total Protein Fluid Total Protein Vancomycin Trough Rheumatoid Factor Complement C4 Miscellaneous Test Crossmatch 11/28/16 11/28/16 11/28/16 04:45 05:33 05:44 WBC RBC Hgb Hct MCV MCH MCHC RDW Plt Count Lymph % (Auto) [place] % (Auto) Lymph # [place] # Baso # Seg Neutrophils % Seg Neuts % (Manual) Lymphocytes % (Manual) Monocytes % (Manual) Eosinophils % (Manual) Basophils % (Manual) Nucleated RBC % Seg Neutrophils # Seg Neutrophils # Man Lymphocytes # (Manual) Monocytes # (Manual) Eosinophils # (Manual) Basophils # (Manual) PT INR Fibrinogen dRVVT Confirm Interp Factor V Activity POC ABG pH POC ABG pCO2 POC ABG pO2 ABG pO2 99.3 H ABG HCO3 ABG Base Excess ABG Hemoglobin 8.3 L Oxyhemoglobin Sodium Potassium Chloride Carbon Dioxide BUN 63 H Creatinine 2.4 H Glucose 102 H POC Glucose 108 H Lactic Acid Calcium Phosphorus 1.80 L Magnesium Direct Bilirubin AST ALT Alkaline Phosphatase Lactate Dehydrogenase Troponin T C-Reactive Protein Total Protein Albumin Prealbumin Triglycerides Cholesterol LDL Cholesterol Direct HDL Cholesterol PTH Intact Urine pH Urine WBC (Auto) Urine Creatinine Urine Total Protein Fluid Total Protein Vancomycin Trough Rheumatoid Factor Complement C4 Miscellaneous Test Crossmatch 11/28/16 11/28/16 11/28/16 12:31 16:09 23:46 WBC RBC Hgb Hct MCV MCH MCHC RDW Plt Count Lymph % (Auto) [place] % (Auto) Lymph # [place] # Baso # Seg Neutrophils % Seg Neuts % (Manual) Lymphocytes % (Manual) Monocytes % (Manual) Eosinophils % (Manual) Basophils % (Manual) Nucleated RBC % Seg Neutrophils # Seg Neutrophils # Man Lymphocytes # (Manual) Monocytes # (Manual) Eosinophils # (Manual) Basophils # (Manual) PT INR Fibrinogen dRVVT Confirm Interp Factor V Activity POC ABG pH POC ABG pCO2 POC ABG pO2 ABG pO2 ABG HCO3 ABG Base Excess ABG Hemoglobin Oxyhemoglobin Sodium Potassium Chloride Carbon Dioxide BUN Creatinine Glucose POC Glucose 126 H 111 H 119 H Lactic Acid Calcium Phosphorus Magnesium Direct Bilirubin AST ALT Alkaline Phosphatase Lactate Dehydrogenase Troponin T C-Reactive Protein Total Protein Albumin Prealbumin Triglycerides Cholesterol LDL Cholesterol Direct HDL Cholesterol PTH Intact Urine pH Urine WBC (Auto) Urine Creatinine Urine Total Protein Fluid Total Protein Vancomycin Trough Rheumatoid Factor Complement C4 Miscellaneous Test Crossmatch 11/29/16 11/29/16 11/29/16 03:33 04:52 05:10 WBC RBC Hgb Hct MCV MCH MCHC RDW Plt Count Lymph % (Auto) [place] % (Auto) Lymph # [place] # Baso # Seg Neutrophils % Seg Neuts % (Manual) Lymphocytes % (Manual) Monocytes % (Manual) Eosinophils % (Manual) Basophils % (Manual) Nucleated RBC % Seg Neutrophils # Seg Neutrophils # Man Lymphocytes # (Manual) Monocytes # (Manual) Eosinophils # (Manual) Basophils # (Manual) PT INR Fibrinogen dRVVT Confirm Interp Factor V Activity POC ABG pH POC ABG pCO2 POC ABG pO2 ABG pO2 ABG HCO3 ABG Base Excess ABG Hemoglobin 7.0 L Oxyhemoglobin 94.9 L Sodium Potassium Chloride Carbon Dioxide BUN 73 H Creatinine 2.7 H Glucose POC Glucose 108 H Lactic Acid Calcium Phosphorus Magnesium Direct Bilirubin AST ALT Alkaline Phosphatase Lactate Dehydrogenase Troponin T C-Reactive Protein Total Protein Albumin Prealbumin Triglycerides Cholesterol LDL Cholesterol Direct HDL Cholesterol PTH Intact Urine pH Urine WBC (Auto) Urine Creatinine Urine Total Protein Fluid Total Protein Vancomycin Trough Rheumatoid Factor Complement C4 Miscellaneous Test Crossmatch 11/29/16 11/29/16 11/29/16 12:16 18:05 23:46 WBC RBC Hgb Hct MCV MCH MCHC RDW Plt Count Lymph % (Auto) [place] % (Auto) Lymph # [place] # Baso # Seg Neutrophils % Seg Neuts % (Manual) Lymphocytes % (Manual) Monocytes % (Manual) Eosinophils % (Manual) Basophils % (Manual) Nucleated RBC % Seg Neutrophils # Seg Neutrophils # Man Lymphocytes # (Manual) Monocytes # (Manual) Eosinophils # (Manual) Basophils # (Manual) PT INR Fibrinogen dRVVT Confirm Interp Factor V Activity POC ABG pH POC ABG pCO2 POC ABG pO2 ABG pO2 ABG HCO3 ABG Base Excess ABG Hemoglobin Oxyhemoglobin Sodium Potassium Chloride Carbon Dioxide BUN Creatinine Glucose POC Glucose 133 H 146 H 141 H Lactic Acid Calcium Phosphorus Magnesium Direct Bilirubin AST ALT Alkaline Phosphatase Lactate Dehydrogenase Troponin T C-Reactive Protein Total Protein Albumin Prealbumin Triglycerides Cholesterol LDL Cholesterol Direct HDL Cholesterol PTH Intact Urine pH Urine WBC (Auto) Urine Creatinine Urine Total Protein Fluid Total Protein Vancomycin Trough Rheumatoid Factor Complement C4 Miscellaneous Test Crossmatch 11/30/16 11/30/16 11/30/16 04:17 04:17 04:32 WBC 12.0 H RBC 2.80 L Hgb 7.8 L Hct 23.6 L MCV MCH MCHC RDW 16.6 H Plt Count Lymph % (Auto) [place] % (Auto) 11.3 H Lymph # [place] # 1.4 H Baso # Seg Neutrophils % Seg Neuts % (Manual) Lymphocytes % (Manual) Monocytes % (Manual) Eosinophils % (Manual) Basophils % (Manual) Nucleated RBC % Seg Neutrophils # 8.2 H Seg Neutrophils # Man Lymphocytes # (Manual) Monocytes # (Manual) Eosinophils # (Manual) Basophils # (Manual) PT INR Fibrinogen dRVVT Confirm Interp Factor V Activity POC ABG pH POC ABG pCO2 POC ABG pO2 ABG pO2 ABG HCO3 ABG Base Excess ABG Hemoglobin Oxyhemoglobin Sodium 169 H* D Potassium 5.1 H Chloride 121.5 H Carbon Dioxide BUN 34 H Creatinine 1.3 H D Glucose 133 H POC Glucose 131 H Lactic Acid Calcium 10.3 H Phosphorus Magnesium Direct Bilirubin AST ALT Alkaline Phosphatase Lactate Dehydrogenase Troponin T C-Reactive Protein Total Protein Albumin Prealbumin Triglycerides Cholesterol LDL Cholesterol Direct HDL Cholesterol PTH Intact Urine pH Urine WBC (Auto) Urine Creatinine Urine Total Protein Fluid Total Protein Vancomycin Trough Rheumatoid Factor Complement C4 Miscellaneous Test Crossmatch 11/30/16 11/30/16 11/30/16 05:45 11:10 17:26 WBC RBC Hgb Hct MCV MCH MCHC RDW Plt Count Lymph % (Auto) [place] % (Auto) Lymph # [place] # Baso # Seg Neutrophils % Seg Neuts % (Manual) Lymphocytes % (Manual) Monocytes % (Manual) Eosinophils % (Manual) Basophils % (Manual) Nucleated RBC % Seg Neutrophils # Seg Neutrophils # Man Lymphocytes # (Manual) Monocytes # (Manual) Eosinophils # (Manual) Basophils # (Manual) PT INR Fibrinogen dRVVT Confirm Interp Factor V Activity POC ABG pH POC ABG pCO2 POC ABG pO2 ABG pO2 ABG HCO3 ABG Base Excess ABG Hemoglobin Oxyhemoglobin Sodium Potassium Chloride Carbon Dioxide BUN 45 H Creatinine 1.6 H Glucose 131 H POC Glucose 146 H 134 H Lactic Acid Calcium Phosphorus Magnesium Direct Bilirubin AST ALT Alkaline Phosphatase Lactate Dehydrogenase Troponin T C-Reactive Protein Total Protein Albumin Prealbumin Triglycerides Cholesterol LDL Cholesterol Direct HDL Cholesterol PTH Intact Urine pH Urine WBC (Auto) Urine Creatinine Urine Total Protein Fluid Total Protein Vancomycin Trough Rheumatoid Factor Complement C4 Miscellaneous Test Crossmatch 11/30/16 12/01/16 12/01/16 23:35 00:06 03:35 WBC RBC Hgb Hct MCV MCH MCHC RDW Plt Count Lymph % (Auto) [place] % (Auto) Lymph # [place] # Baso # Seg Neutrophils % Seg Neuts % (Manual) Lymphocytes % (Manual) Monocytes % (Manual) Eosinophils % (Manual) Basophils % (Manual) Nucleated RBC % Seg Neutrophils # Seg Neutrophils # Man Lymphocytes # (Manual) Monocytes # (Manual) Eosinophils # (Manual) Basophils # (Manual) PT INR Fibrinogen dRVVT Confirm Interp Factor V Activity POC ABG pH POC ABG pCO2 POC ABG pO2 ABG pO2 ABG HCO3 ABG Base Excess ABG Hemoglobin 6.9 L Oxyhemoglobin Sodium Potassium Chloride Carbon Dioxide BUN 58 H Creatinine 1.8 H Glucose 146 H POC Glucose 151 H Lactic Acid Calcium Phosphorus Magnesium Direct Bilirubin AST ALT Alkaline Phosphatase Lactate Dehydrogenase Troponin T C-Reactive Protein Total Protein Albumin Prealbumin Triglycerides Cholesterol LDL Cholesterol Direct HDL Cholesterol PTH Intact Urine pH Urine WBC (Auto) Urine Creatinine Urine Total Protein Fluid Total Protein Vancomycin Trough Rheumatoid Factor Complement C4 Miscellaneous Test Crossmatch 12/01/16 12/01/16 12/01/16 03:35 05:47 11:52 WBC 12.3 H RBC 2.82 L Hgb 7.8 L Hct 23.7 L MCV MCH MCHC RDW 16.7 H Plt Count Lymph % (Auto) [place] % (Auto) 9.8 H Lymph # [place] # 1.2 H Baso # Seg Neutrophils % Seg Neuts % (Manual) Lymphocytes % (Manual) Monocytes % (Manual) Eosinophils % (Manual) Basophils % (Manual) Nucleated RBC % Seg Neutrophils # 8.4 H Seg Neutrophils # Man Lymphocytes # (Manual) Monocytes # (Manual) Eosinophils # (Manual) Basophils # (Manual) PT INR Fibrinogen dRVVT Confirm Interp Factor V Activity POC ABG pH POC ABG pCO2 POC ABG pO2 ABG pO2 ABG HCO3 ABG Base Excess ABG Hemoglobin Oxyhemoglobin Sodium Potassium Chloride Carbon Dioxide BUN Creatinine Glucose POC Glucose 152 H 152 H Lactic Acid Calcium Phosphorus Magnesium Direct Bilirubin AST ALT Alkaline Phosphatase Lactate Dehydrogenase Troponin T C-Reactive Protein Total Protein Albumin Prealbumin Triglycerides Cholesterol LDL Cholesterol Direct HDL Cholesterol PTH Intact Urine pH Urine WBC (Auto) Urine Creatinine Urine Total Protein Fluid Total Protein Vancomycin Trough Rheumatoid Factor Complement C4 Miscellaneous Test Crossmatch 12/01/16 12/01/16 12/02/16 17:40 23:41 05:00 WBC RBC Hgb Hct MCV MCH MCHC RDW Plt Count Lymph % (Auto) [place] % (Auto) Lymph # [place] # Baso # Seg Neutrophils % Seg Neuts % (Manual) Lymphocytes % (Manual) Monocytes % (Manual) Eosinophils % (Manual) Basophils % (Manual) Nucleated RBC % Seg Neutrophils # Seg Neutrophils # Man Lymphocytes # (Manual) Monocytes # (Manual) Eosinophils # (Manual) Basophils # (Manual) PT INR Fibrinogen dRVVT Confirm Interp Factor V Activity POC ABG pH POC ABG pCO2 POC ABG pO2 ABG pO2 ABG HCO3 ABG Base Excess ABG Hemoglobin Oxyhemoglobin Sodium Potassium Chloride Carbon Dioxide BUN 45 H Creatinine Glucose 115 H POC Glucose 140 H 144 H Lactic Acid Calcium Phosphorus Magnesium Direct Bilirubin AST ALT Alkaline Phosphatase Lactate Dehydrogenase Troponin T C-Reactive Protein Total Protein Albumin Prealbumin Triglycerides Cholesterol LDL Cholesterol Direct HDL Cholesterol PTH Intact Urine pH Urine WBC (Auto) Urine Creatinine Urine Total Protein Fluid Total Protein Vancomycin Trough Rheumatoid Factor Complement C4 Miscellaneous Test Crossmatch 12/02/16 12/02/16 12/02/16 05:31 11:20 17:38 WBC RBC Hgb Hct MCV MCH MCHC RDW Plt Count Lymph % (Auto) [place] % (Auto) Lymph # [place] # Baso # Seg Neutrophils % Seg Neuts % (Manual) Lymphocytes % (Manual) Monocytes % (Manual) Eosinophils % (Manual) Basophils % (Manual) Nucleated RBC % Seg Neutrophils # Seg Neutrophils # Man Lymphocytes # (Manual) Monocytes # (Manual) Eosinophils # (Manual) Basophils # (Manual) PT INR Fibrinogen dRVVT Confirm Interp Factor V Activity POC ABG pH POC ABG pCO2 POC ABG pO2 ABG pO2 ABG HCO3 ABG Base Excess ABG Hemoglobin Oxyhemoglobin Sodium Potassium Chloride Carbon Dioxide BUN Creatinine Glucose POC Glucose 136 H 177 H 139 H Lactic Acid Calcium Phosphorus Magnesium Direct Bilirubin AST ALT Alkaline Phosphatase Lactate Dehydrogenase Troponin T C-Reactive Protein Total Protein Albumin Prealbumin Triglycerides Cholesterol LDL Cholesterol Direct HDL Cholesterol PTH Intact Urine pH Urine WBC (Auto) Urine Creatinine Urine Total Protein Fluid Total Protein Vancomycin Trough Rheumatoid Factor Complement C4 Miscellaneous Test Crossmatch 12/02/16 12/03/16 12/03/16 23:43 04:00 04:00 WBC 20.4 H RBC 2.74 L Hgb 7.4 L Hct 23.6 L MCV MCH 27 L MCHC RDW 17.1 H Plt Count Lymph % (Auto) [place] % (Auto) Lymph # [place] # Baso # Seg Neutrophils % Seg Neuts % (Manual) 31.0 L Lymphocytes % (Manual) Monocytes % (Manual) Eosinophils % (Manual) Basophils % (Manual) Nucleated RBC % Seg Neutrophils # Seg Neutrophils # Man Lymphocytes # (Manual) Monocytes # (Manual) Eosinophils # (Manual) Basophils # (Manual) PT INR Fibrinogen dRVVT Confirm Interp Factor V Activity POC ABG pH POC ABG pCO2 POC ABG pO2 ABG pO2 ABG HCO3 ABG Base Excess ABG Hemoglobin Oxyhemoglobin Sodium Potassium Chloride Carbon Dioxide BUN 61 H Creatinine 1.6 H Glucose 119 H POC Glucose 158 H Lactic Acid Calcium Phosphorus Magnesium Direct Bilirubin AST ALT Alkaline Phosphatase Lactate Dehydrogenase Troponin T C-Reactive Protein Total Protein Albumin Prealbumin Triglycerides Cholesterol LDL Cholesterol Direct HDL Cholesterol PTH Intact Urine pH Urine WBC (Auto) Urine Creatinine Urine Total Protein Fluid Total Protein Vancomycin Trough Rheumatoid Factor Complement C4 Miscellaneous Test Crossmatch 12/03/16 12/03/16 12/03/16 05:02 12:11 18:16 WBC RBC Hgb Hct MCV MCH MCHC RDW Plt Count Lymph % (Auto) [place] % (Auto) Lymph # [place] # Baso # Seg Neutrophils % Seg Neuts % (Manual) Lymphocytes % (Manual) Monocytes % (Manual) Eosinophils % (Manual) Basophils % (Manual) Nucleated RBC % Seg Neutrophils # Seg Neutrophils # Man Lymphocytes # (Manual) Monocytes # (Manual) Eosinophils # (Manual) Basophils # (Manual) PT INR Fibrinogen dRVVT Confirm Interp Factor V Activity POC ABG pH POC ABG pCO2 POC ABG pO2 ABG pO2 ABG HCO3 ABG Base Excess ABG Hemoglobin Oxyhemoglobin Sodium Potassium Chloride Carbon Dioxide BUN Creatinine Glucose POC Glucose 146 H 157 H 124 H Lactic Acid Calcium Phosphorus Magnesium Direct Bilirubin AST ALT Alkaline Phosphatase Lactate Dehydrogenase Troponin T C-Reactive Protein Total Protein Albumin Prealbumin Triglycerides Cholesterol LDL Cholesterol Direct HDL Cholesterol PTH Intact Urine pH Urine WBC (Auto) Urine Creatinine Urine Total Protein Fluid Total Protein Vancomycin Trough Rheumatoid Factor Complement C4 Miscellaneous Test Crossmatch 12/03/16 12/04/16 12/04/16 23:41 04:00 04:45 WBC RBC Hgb Hct MCV MCH MCHC RDW Plt Count Lymph % (Auto) [place] % (Auto) Lymph # [place] # Baso # Seg Neutrophils % Seg Neuts % (Manual) Lymphocytes % (Manual) Monocytes % (Manual) Eosinophils % (Manual) Basophils % (Manual) Nucleated RBC % Seg Neutrophils # Seg Neutrophils # Man Lymphocytes # (Manual) Monocytes # (Manual) Eosinophils # (Manual) Basophils # (Manual) PT INR Fibrinogen dRVVT Confirm Interp Factor V Activity POC ABG pH POC ABG pCO2 POC ABG pO2 ABG pO2 ABG HCO3 ABG Base Excess ABG Hemoglobin Oxyhemoglobin Sodium Potassium Chloride Carbon Dioxide BUN 76 H Creatinine 1.6 H Glucose POC Glucose 130 H 136 H Lactic Acid Calcium Phosphorus Magnesium Direct Bilirubin AST ALT Alkaline Phosphatase 155 H Lactate Dehydrogenase Troponin T C-Reactive Protein Total Protein 5.5 L Albumin 1.5 L Prealbumin Triglycerides Cholesterol LDL Cholesterol Direct HDL Cholesterol PTH Intact Urine pH Urine WBC (Auto) Urine Creatinine Urine Total Protein Fluid Total Protein Vancomycin Trough Rheumatoid Factor Complement C4 Miscellaneous Test Crossmatch 12/04/16 12/04/16 12/05/16 12:08 17:23 00:10 WBC RBC Hgb Hct MCV MCH MCHC RDW Plt Count Lymph % (Auto) [place] % (Auto) Lymph # [place] # Baso # Seg Neutrophils % Seg Neuts % (Manual) Lymphocytes % (Manual) Monocytes % (Manual) Eosinophils % (Manual) Basophils % (Manual) Nucleated RBC % Seg Neutrophils # Seg Neutrophils # Man Lymphocytes # (Manual) Monocytes # (Manual) Eosinophils # (Manual) Basophils # (Manual) PT INR Fibrinogen dRVVT Confirm Interp Factor V Activity POC ABG pH POC ABG pCO2 POC ABG pO2 ABG pO2 ABG HCO3 ABG Base Excess ABG Hemoglobin Oxyhemoglobin Sodium Potassium Chloride Carbon Dioxide BUN Creatinine Glucose POC Glucose 114 H 129 H 124 H Lactic Acid Calcium Phosphorus Magnesium Direct Bilirubin AST ALT Alkaline Phosphatase Lactate Dehydrogenase Troponin T C-Reactive Protein Total Protein Albumin Prealbumin Triglycerides Cholesterol LDL Cholesterol Direct HDL Cholesterol PTH Intact Urine pH Urine WBC (Auto) Urine Creatinine Urine Total Protein Fluid Total Protein Vancomycin Trough Rheumatoid Factor Complement C4 Miscellaneous Test Crossmatch 12/05/16 12/05/16 12/05/16 05:00 05:00 05:18 WBC RBC Hgb Hct MCV MCH MCHC RDW Plt Count Lymph % (Auto) [place] % (Auto) Lymph # [place] # Baso # Seg Neutrophils % Seg Neuts % (Manual) Lymphocytes % (Manual) Monocytes % (Manual) Eosinophils % (Manual) Basophils % (Manual) Nucleated RBC % Seg Neutrophils # Seg Neutrophils # Man Lymphocytes # (Manual) Monocytes # (Manual) Eosinophils # (Manual) Basophils # (Manual) PT INR Fibrinogen dRVVT Confirm Interp Factor V Activity POC ABG pH POC ABG pCO2 POC ABG pO2 ABG pO2 ABG HCO3 ABG Base Excess ABG Hemoglobin Oxyhemoglobin Sodium Potassium Chloride Carbon Dioxide 21 L BUN 85 H Creatinine 1.9 H Glucose 131 H POC Glucose 154 H Lactic Acid Calcium Phosphorus Magnesium Direct Bilirubin AST ALT Alkaline Phosphatase Lactate Dehydrogenase Troponin T C-Reactive Protein 19.30 H Total Protein Albumin Prealbumin Triglycerides Cholesterol LDL Cholesterol Direct HDL Cholesterol PTH Intact Urine pH Urine WBC (Auto) Urine Creatinine Urine Total Protein Fluid Total Protein Vancomycin Trough Rheumatoid Factor Complement C4 Miscellaneous Test Crossmatch 12/05/16 12/05/16 12/05/16 11:43 17:46 23:25 WBC RBC Hgb Hct MCV MCH MCHC RDW Plt Count Lymph % (Auto) [place] % (Auto) Lymph # [place] # Baso # Seg Neutrophils % Seg Neuts % (Manual) Lymphocytes % (Manual) Monocytes % (Manual) Eosinophils % (Manual) Basophils % (Manual) Nucleated RBC % Seg Neutrophils # Seg Neutrophils # Man Lymphocytes # (Manual) Monocytes # (Manual) Eosinophils # (Manual) Basophils # (Manual) PT INR Fibrinogen dRVVT Confirm Interp Factor V Activity POC ABG pH POC ABG pCO2 POC ABG pO2 ABG pO2 ABG HCO3 ABG Base Excess ABG Hemoglobin Oxyhemoglobin Sodium Potassium Chloride Carbon Dioxide BUN Creatinine Glucose POC Glucose 117 H 113 H 111 H Lactic Acid Calcium Phosphorus Magnesium Direct Bilirubin AST ALT Alkaline Phosphatase Lactate Dehydrogenase Troponin T C-Reactive Protein Total Protein Albumin Prealbumin Triglycerides Cholesterol LDL Cholesterol Direct HDL Cholesterol PTH Intact Urine pH Urine WBC (Auto) Urine Creatinine Urine Total Protein Fluid Total Protein Vancomycin Trough Rheumatoid Factor Complement C4 Miscellaneous Test Crossmatch 12/05/16 12/06/16 12/06/16 Unknown 04:58 06:00 WBC RBC Hgb Hct MCV MCH MCHC RDW Plt Count Lymph % (Auto) [place] % (Auto) Lymph # [place] # Baso # Seg Neutrophils % Seg Neuts % (Manual) Lymphocytes % (Manual) Monocytes % (Manual) Eosinophils % (Manual) Basophils % (Manual) Nucleated RBC % Seg Neutrophils # Seg Neutrophils # Man Lymphocytes # (Manual) Monocytes # (Manual) Eosinophils # (Manual) Basophils # (Manual) PT INR Fibrinogen dRVVT Confirm Interp Factor V Activity POC ABG pH POC ABG pCO2 POC ABG pO2 ABG pO2 75.2 L ABG HCO3 ABG Base Excess -3.4 L ABG Hemoglobin 7.4 L Oxyhemoglobin 94.5 L Sodium Potassium Chloride Carbon Dioxide 20 L BUN 99 H Creatinine 2.1 H Glucose 126 H POC Glucose 145 H Lactic Acid Calcium Phosphorus 4.80 H Magnesium Direct Bilirubin AST ALT Alkaline Phosphatase Lactate Dehydrogenase Troponin T C-Reactive Protein Total Protein Albumin Prealbumin Triglycerides Cholesterol LDL Cholesterol Direct HDL Cholesterol PTH Intact Urine pH Urine WBC (Auto) Urine Creatinine Urine Total Protein Fluid Total Protein Vancomycin Trough Rheumatoid Factor Complement C4 Miscellaneous Test Crossmatch 12/06/16 12/06/16 12/06/16 06:46 11:54 17:55 WBC RBC Hgb 8.3 L Hct 26.4 L MCV MCH MCHC RDW Plt Count Lymph % (Auto) [place] % (Auto) Lymph # [place] # Baso # Seg Neutrophils % Seg Neuts % (Manual) Lymphocytes % (Manual) Monocytes % (Manual) Eosinophils % (Manual) Basophils % (Manual) Nucleated RBC % Seg Neutrophils # Seg Neutrophils # Man Lymphocytes # (Manual) Monocytes # (Manual) Eosinophils # (Manual) Basophils # (Manual) PT INR Fibrinogen dRVVT Confirm Interp Factor V Activity POC ABG pH POC ABG pCO2 POC ABG pO2 ABG pO2 ABG HCO3 ABG Base Excess ABG Hemoglobin Oxyhemoglobin Sodium Potassium Chloride Carbon Dioxide BUN Creatinine Glucose POC Glucose 126 H 157 H Lactic Acid Calcium Phosphorus Magnesium Direct Bilirubin AST ALT Alkaline Phosphatase Lactate Dehydrogenase Troponin T C-Reactive Protein Total Protein Albumin Prealbumin Triglycerides Cholesterol LDL Cholesterol Direct HDL Cholesterol PTH Intact Urine pH Urine WBC (Auto) Urine Creatinine Urine Total Protein Fluid Total Protein Vancomycin Trough Rheumatoid Factor Complement C4 Miscellaneous Test Crossmatch 12/06/16 12/07/16 12/07/16 23:59 05:34 06:30 WBC RBC Hgb Hct MCV MCH MCHC RDW Plt Count Lymph % (Auto) [place] % (Auto) Lymph # [place] # Baso # Seg Neutrophils % Seg Neuts % (Manual) Lymphocytes % (Manual) Monocytes % (Manual) Eosinophils % (Manual) Basophils % (Manual) Nucleated RBC % Seg Neutrophils # Seg Neutrophils # Man Lymphocytes # (Manual) Monocytes # (Manual) Eosinophils # (Manual) Basophils # (Manual) PT INR Fibrinogen dRVVT Confirm Interp Factor V Activity POC ABG pH POC ABG pCO2 POC ABG pO2 ABG pO2 ABG HCO3 ABG Base Excess ABG Hemoglobin Oxyhemoglobin Sodium Potassium Chloride Carbon Dioxide BUN 67 H Creatinine 1.4 H Glucose 126 H POC Glucose 129 H 129 H Lactic Acid Calcium Phosphorus Magnesium Direct Bilirubin AST ALT Alkaline Phosphatase Lactate Dehydrogenase Troponin T C-Reactive Protein Total Protein Albumin Prealbumin Triglycerides Cholesterol LDL Cholesterol Direct HDL Cholesterol PTH Intact Urine pH Urine WBC (Auto) Urine Creatinine Urine Total Protein Fluid Total Protein Vancomycin Trough Rheumatoid Factor Complement C4 Miscellaneous Test Crossmatch 12/07/16 12/07/16 12/07/16 06:30 08:00 09:45 WBC 18.8 H RBC 2.52 L Hgb 6.9 L 6.8 L Hct 21.2 L 21.1 L MCV MCH 27 L MCHC RDW 18.0 H Plt Count Lymph % (Auto) [place] % (Auto) 9.9 H Lymph # [place] # 1.9 H Baso # Seg Neutrophils % 71.8 H Seg Neuts % (Manual) Lymphocytes % (Manual) Monocytes % (Manual) Eosinophils % (Manual) Basophils % (Manual) Nucleated RBC % Seg Neutrophils # 13.5 H Seg Neutrophils # Man Lymphocytes # (Manual) Monocytes # (Manual) Eosinophils # (Manual) Basophils # (Manual) PT INR Fibrinogen dRVVT Confirm Interp Factor V Activity POC ABG pH POC ABG pCO2 POC ABG pO2 ABG pO2 ABG HCO3 ABG Base Excess ABG Hemoglobin Oxyhemoglobin Sodium Potassium Chloride Carbon Dioxide BUN Creatinine Glucose POC Glucose Lactic Acid Calcium Phosphorus Magnesium Direct Bilirubin AST ALT Alkaline Phosphatase Lactate Dehydrogenase Troponin T C-Reactive Protein Total Protein Albumin Prealbumin Triglycerides Cholesterol LDL Cholesterol Direct HDL Cholesterol PTH Intact Urine pH Urine WBC (Auto) Urine Creatinine Urine Total Protein Fluid Total Protein Vancomycin Trough Rheumatoid Factor Complement C4 Miscellaneous Test Crossmatch See Detail 12/07/16 12/07/16 12/07/16 11:44 18:19 23:59 WBC RBC Hgb Hct MCV MCH MCHC RDW Plt Count Lymph % (Auto) [place] % (Auto) Lymph # [place] # Baso # Seg Neutrophils % Seg Neuts % (Manual) Lymphocytes % (Manual) Monocytes % (Manual) Eosinophils % (Manual) Basophils % (Manual) Nucleated RBC % Seg Neutrophils # Seg Neutrophils # Man Lymphocytes # (Manual) Monocytes # (Manual) Eosinophils # (Manual) Basophils # (Manual) PT INR Fibrinogen dRVVT Confirm Interp Factor V Activity POC ABG pH POC ABG pCO2 POC ABG pO2 ABG pO2 ABG HCO3 ABG Base Excess ABG Hemoglobin Oxyhemoglobin Sodium Potassium Chloride Carbon Dioxide BUN Creatinine Glucose POC Glucose 137 H 138 H 133 H Lactic Acid Calcium Phosphorus Magnesium Direct Bilirubin AST ALT Alkaline Phosphatase Lactate Dehydrogenase Troponin T C-Reactive Protein Total Protein Albumin Prealbumin Triglycerides Cholesterol LDL Cholesterol Direct HDL Cholesterol PTH Intact Urine pH Urine WBC (Auto) Urine Creatinine Urine Total Protein Fluid Total Protein Vancomycin Trough Rheumatoid Factor Complement C4 Miscellaneous Test Crossmatch 12/08/16 12/08/16 12/08/16 05:25 05:30 05:30 WBC 23.8 H RBC 2.88 L Hgb 8.1 L Hct 24.3 L MCV MCH MCHC RDW 16.7 H Plt Count Lymph % (Auto) [place] % (Auto) Lymph # [place] # Baso # Seg Neutrophils % Seg Neuts % (Manual) 76.0 H Lymphocytes % (Manual) 9.0 L Monocytes % (Manual) 9.0 H Eosinophils % (Manual) Basophils % (Manual) Nucleated RBC % Seg Neutrophils # Seg Neutrophils # Man 18.1 H Lymphocytes # (Manual) Monocytes # (Manual) 2.1 H Eosinophils # (Manual) Basophils # (Manual) PT INR Fibrinogen dRVVT Confirm Interp Factor V Activity POC ABG pH POC ABG pCO2 POC ABG pO2 ABG pO2 ABG HCO3 ABG Base Excess ABG Hemoglobin Oxyhemoglobin Sodium Potassium Chloride Carbon Dioxide 21 L BUN 76 H Creatinine 1.6 H Glucose 133 H POC Glucose 177 H Lactic Acid Calcium Phosphorus Magnesium Direct Bilirubin AST ALT Alkaline Phosphatase Lactate Dehydrogenase Troponin T C-Reactive Protein Total Protein Albumin Prealbumin Triglycerides Cholesterol LDL Cholesterol Direct HDL Cholesterol PTH Intact Urine pH Urine WBC (Auto) Urine Creatinine Urine Total Protein Fluid Total Protein Vancomycin Trough Rheumatoid Factor Complement C4 Miscellaneous Test Crossmatch 12/08/16 12/08/16 12/09/16 11:45 18:00 00:00 WBC RBC Hgb Hct MCV MCH MCHC RDW Plt Count Lymph % (Auto) [place] % (Auto) Lymph # [place] # Baso # Seg Neutrophils % Seg Neuts % (Manual) Lymphocytes % (Manual) Monocytes % (Manual) Eosinophils % (Manual) Basophils % (Manual) Nucleated RBC % Seg Neutrophils # Seg Neutrophils # Man Lymphocytes # (Manual) Monocytes # (Manual) Eosinophils # (Manual) Basophils # (Manual) PT INR Fibrinogen dRVVT Confirm Interp Factor V Activity POC ABG pH POC ABG pCO2 POC ABG pO2 ABG pO2 ABG HCO3 ABG Base Excess ABG Hemoglobin Oxyhemoglobin Sodium Potassium Chloride Carbon Dioxide BUN Creatinine Glucose POC Glucose 163 H 123 H 137 H Lactic Acid Calcium Phosphorus Magnesium Direct Bilirubin AST ALT Alkaline Phosphatase Lactate Dehydrogenase Troponin T C-Reactive Protein Total Protein Albumin Prealbumin Triglycerides Cholesterol LDL Cholesterol Direct HDL Cholesterol PTH Intact Urine pH Urine WBC (Auto) Urine Creatinine Urine Total Protein Fluid Total Protein Vancomycin Trough Rheumatoid Factor Complement C4 Miscellaneous Test Crossmatch 12/09/16 12/09/16 12/09/16 05:34 06:00 06:00 WBC 15.5 H RBC 2.87 L Hgb 8.0 L Hct 24.2 L MCV MCH MCHC RDW 17.2 H Plt Count Lymph % (Auto) [place] % (Auto) 11.6 H Lymph # [place] # 1.8 H Baso # Seg Neutrophils % 70.8 H Seg Neuts % (Manual) Lymphocytes % (Manual) Monocytes % (Manual) Eosinophils % (Manual) Basophils % (Manual) Nucleated RBC % Seg Neutrophils # 11.0 H Seg Neutrophils # Man Lymphocytes # (Manual) Monocytes # (Manual) Eosinophils # (Manual) Basophils # (Manual) PT INR Fibrinogen dRVVT Confirm Interp Factor V Activity POC ABG pH POC ABG pCO2 POC ABG pO2 ABG pO2 ABG HCO3 ABG Base Excess ABG Hemoglobin Oxyhemoglobin Sodium Potassium Chloride Carbon Dioxide BUN 51 H Creatinine Glucose 117 H POC Glucose 136 H Lactic Acid Calcium Phosphorus Magnesium Direct Bilirubin AST ALT Alkaline Phosphatase Lactate Dehydrogenase Troponin T C-Reactive Protein Total Protein Albumin Prealbumin Triglycerides Cholesterol LDL Cholesterol Direct HDL Cholesterol PTH Intact Urine pH Urine WBC (Auto) Urine Creatinine Urine Total Protein Fluid Total Protein Vancomycin Trough Rheumatoid Factor Complement C4 Miscellaneous Test Crossmatch 12/09/16 12/09/16 12/09/16 12:29 17:52 23:10 WBC RBC Hgb Hct MCV MCH MCHC RDW Plt Count Lymph % (Auto) [place] % (Auto) Lymph # [place] # Baso # Seg Neutrophils % Seg Neuts % (Manual) Lymphocytes % (Manual) Monocytes % (Manual) Eosinophils % (Manual) Basophils % (Manual) Nucleated RBC % Seg Neutrophils # Seg Neutrophils # Man Lymphocytes # (Manual) Monocytes # (Manual) Eosinophils # (Manual) Basophils # (Manual) PT INR Fibrinogen dRVVT Confirm Interp Factor V Activity POC ABG pH POC ABG pCO2 POC ABG pO2 ABG pO2 ABG HCO3 ABG Base Excess ABG Hemoglobin Oxyhemoglobin Sodium Potassium Chloride Carbon Dioxide BUN Creatinine Glucose POC Glucose 139 H 140 H 129 H Lactic Acid Calcium Phosphorus Magnesium Direct Bilirubin AST ALT Alkaline Phosphatase Lactate Dehydrogenase Troponin T C-Reactive Protein Total Protein Albumin Prealbumin Triglycerides Cholesterol LDL Cholesterol Direct HDL Cholesterol PTH Intact Urine pH Urine WBC (Auto) Urine Creatinine Urine Total Protein Fluid Total Protein Vancomycin Trough Rheumatoid Factor Complement C4 Miscellaneous Test Crossmatch 12/10/16 12/10/16 12/10/16 05:00 05:00 06:54 WBC 15.7 H RBC 2.87 L Hgb 8.2 L Hct 24.4 L MCV MCH MCHC RDW 17.2 H Plt Count Lymph % (Auto) [place] % (Auto) 8.3 H Lymph # [place] # 1.3 H Baso # Seg Neutrophils % 72.8 H Seg Neuts % (Manual) Lymphocytes % (Manual) Monocytes % (Manual) Eosinophils % (Manual) Basophils % (Manual) Nucleated RBC % Seg Neutrophils # 11.4 H Seg Neutrophils # Man Lymphocytes # (Manual) Monocytes # (Manual) Eosinophils # (Manual) Basophils # (Manual) PT INR Fibrinogen dRVVT Confirm Interp Factor V Activity POC ABG pH POC ABG pCO2 POC ABG pO2 ABG pO2 ABG HCO3 ABG Base Excess ABG Hemoglobin Oxyhemoglobin Sodium Potassium Chloride Carbon Dioxide BUN 64 H Creatinine 1.4 H Glucose 134 H POC Glucose 154 H Lactic Acid Calcium Phosphorus Magnesium Direct Bilirubin AST ALT Alkaline Phosphatase Lactate Dehydrogenase Troponin T C-Reactive Protein Total Protein Albumin Prealbumin Triglycerides Cholesterol LDL Cholesterol Direct HDL Cholesterol PTH Intact Urine pH Urine WBC (Auto) Urine Creatinine Urine Total Protein Fluid Total Protein Vancomycin Trough Rheumatoid Factor Complement C4 Miscellaneous Test Crossmatch 12/10/16 12/10/16 12/10/16 11:58 17:29 23:52 WBC RBC Hgb Hct MCV MCH MCHC RDW Plt Count Lymph % (Auto) [place] % (Auto) Lymph # [place] # Baso # Seg Neutrophils % Seg Neuts % (Manual) Lymphocytes % (Manual) Monocytes % (Manual) Eosinophils % (Manual) Basophils % (Manual) Nucleated RBC % Seg Neutrophils # Seg Neutrophils # Man Lymphocytes # (Manual) Monocytes # (Manual) Eosinophils # (Manual) Basophils # (Manual) PT INR Fibrinogen dRVVT Confirm Interp Factor V Activity POC ABG pH POC ABG pCO2 POC ABG pO2 ABG pO2 ABG HCO3 ABG Base Excess ABG Hemoglobin Oxyhemoglobin Sodium Potassium Chloride Carbon Dioxide BUN Creatinine Glucose POC Glucose 144 H 163 H 125 H Lactic Acid Calcium Phosphorus Magnesium Direct Bilirubin AST ALT Alkaline Phosphatase Lactate Dehydrogenase Troponin T C-Reactive Protein Total Protein Albumin Prealbumin Triglycerides Cholesterol LDL Cholesterol Direct HDL Cholesterol PTH Intact Urine pH Urine WBC (Auto) Urine Creatinine Urine Total Protein Fluid Total Protein Vancomycin Trough Rheumatoid Factor Complement C4 Miscellaneous Test Crossmatch 12/11/16 12/11/16 12/11/16 05:38 06:30 06:30 WBC 14.4 H RBC 2.76 L Hgb 7.7 L Hct 23.4 L MCV MCH MCHC RDW 17.2 H Plt Count Lymph % (Auto) [place] % (Auto) 8.8 H Lymph # [place] # 1.3 H Baso # Seg Neutrophils % 72.5 H Seg Neuts % (Manual) Lymphocytes % (Manual) Monocytes % (Manual) Eosinophils % (Manual) Basophils % (Manual) Nucleated RBC % Seg Neutrophils # 10.5 H Seg Neutrophils # Man Lymphocytes # (Manual) Monocytes # (Manual) Eosinophils # (Manual) Basophils # (Manual) PT INR Fibrinogen dRVVT Confirm Interp Factor V Activity POC ABG pH POC ABG pCO2 POC ABG pO2 ABG pO2 ABG HCO3 ABG Base Excess ABG Hemoglobin Oxyhemoglobin Sodium Potassium Chloride Carbon Dioxide BUN 43 H Creatinine Glucose 124 H POC Glucose 141 H Lactic Acid Calcium 8.3 L Phosphorus Magnesium 1.60 L Direct Bilirubin AST ALT Alkaline Phosphatase Lactate Dehydrogenase Troponin T C-Reactive Protein Total Protein Albumin Prealbumin Triglycerides Cholesterol LDL Cholesterol Direct HDL Cholesterol PTH Intact Urine pH Urine WBC (Auto) Urine Creatinine Urine Total Protein Fluid Total Protein Vancomycin Trough Rheumatoid Factor Complement C4 Miscellaneous Test Crossmatch 12/11/16 12/11/16 12/11/16 11:15 17:59 23:48 WBC RBC Hgb Hct MCV MCH MCHC RDW Plt Count Lymph % (Auto) [place] % (Auto) Lymph # [place] # Baso # Seg Neutrophils % Seg Neuts % (Manual) Lymphocytes % (Manual) Monocytes % (Manual) Eosinophils % (Manual) Basophils % (Manual) Nucleated RBC % Seg Neutrophils # Seg Neutrophils # Man Lymphocytes # (Manual) Monocytes # (Manual) Eosinophils # (Manual) Basophils # (Manual) PT INR Fibrinogen dRVVT Confirm Interp Factor V Activity POC ABG pH POC ABG pCO2 POC ABG pO2 ABG pO2 ABG HCO3 ABG Base Excess ABG Hemoglobin Oxyhemoglobin Sodium Potassium Chloride Carbon Dioxide BUN Creatinine Glucose POC Glucose 188 H 106 H 119 H Lactic Acid Calcium Phosphorus Magnesium Direct Bilirubin AST ALT Alkaline Phosphatase Lactate Dehydrogenase Troponin T C-Reactive Protein Total Protein Albumin Prealbumin Triglycerides Cholesterol LDL Cholesterol Direct HDL Cholesterol PTH Intact Urine pH Urine WBC (Auto) Urine Creatinine Urine Total Protein Fluid Total Protein Vancomycin Trough Rheumatoid Factor Complement C4 Miscellaneous Test Crossmatch 12/12/16 12/12/16 12/12/16 05:00 06:01 12:20 WBC 16.7 H RBC 2.87 L Hgb 8.0 L Hct 24.2 L MCV MCH MCHC RDW 17.6 H Plt Count Lymph % (Auto) [place] % (Auto) Lymph # [place] # 1.2 H Baso # Seg Neutrophils % 75.3 H Seg Neuts % (Manual) Lymphocytes % (Manual) Monocytes % (Manual) Eosinophils % (Manual) Basophils % (Manual) Nucleated RBC % Seg Neutrophils # 12.6 H Seg Neutrophils # Man Lymphocytes # (Manual) Monocytes # (Manual) Eosinophils # (Manual) Basophils # (Manual) PT INR Fibrinogen dRVVT Confirm Interp Factor V Activity POC ABG pH POC ABG pCO2 POC ABG pO2 ABG pO2 ABG HCO3 ABG Base Excess ABG Hemoglobin Oxyhemoglobin Sodium Potassium Chloride Carbon Dioxide BUN Creatinine Glucose POC Glucose 134 H 149 H Lactic Acid Calcium Phosphorus Magnesium Direct Bilirubin AST ALT Alkaline Phosphatase Lactate Dehydrogenase Troponin T C-Reactive Protein Total Protein Albumin Prealbumin Triglycerides Cholesterol LDL Cholesterol Direct HDL Cholesterol PTH Intact Urine pH Urine WBC (Auto) Urine Creatinine Urine Total Protein Fluid Total Protein Vancomycin Trough Rheumatoid Factor Complement C4 Miscellaneous Test Crossmatch 12/12/16 12/12/16 12/12/16 17:38 23:01 Unknown WBC RBC Hgb Hct MCV MCH MCHC RDW Plt Count Lymph % (Auto) [place] % (Auto) Lymph # [place] # Baso # Seg Neutrophils % Seg Neuts % (Manual) Lymphocytes % (Manual) Monocytes % (Manual) Eosinophils % (Manual) Basophils % (Manual) Nucleated RBC % Seg Neutrophils # Seg Neutrophils # Man Lymphocytes # (Manual) Monocytes # (Manual) Eosinophils # (Manual) Basophils # (Manual) PT INR Fibrinogen dRVVT Confirm Interp Factor V Activity POC ABG pH POC ABG pCO2 POC ABG pO2 ABG pO2 ABG HCO3 ABG Base Excess ABG Hemoglobin Oxyhemoglobin Sodium Potassium Chloride Carbon Dioxide BUN 60 H Creatinine 1.3 H Glucose 126 H POC Glucose 127 H 144 H Lactic Acid Calcium Phosphorus Magnesium Direct Bilirubin AST ALT Alkaline Phosphatase Lactate Dehydrogenase Troponin T C-Reactive Protein Total Protein Albumin Prealbumin Triglycerides Cholesterol LDL Cholesterol Direct HDL Cholesterol PTH Intact Urine pH Urine WBC (Auto) Urine Creatinine Urine Total Protein Fluid Total Protein Vancomycin Trough Rheumatoid Factor Complement C4 Miscellaneous Test Crossmatch 12/13/16 12/13/16 12/13/16 04:00 04:00 05:19 WBC 18.7 H RBC 2.89 L Hgb 8.3 L Hct 24.6 L MCV MCH MCHC RDW 17.5 H Plt Count Lymph % (Auto) [place] % (Auto) Lymph # [place] # 1.3 H Baso # Seg Neutrophils % 71.5 H Seg Neuts % (Manual) Lymphocytes % (Manual) Monocytes % (Manual) Eosinophils % (Manual) Basophils % (Manual) Nucleated RBC % Seg Neutrophils # 13.4 H Seg Neutrophils # Man Lymphocytes # (Manual) Monocytes # (Manual) Eosinophils # (Manual) Basophils # (Manual) PT INR Fibrinogen dRVVT Confirm Interp Factor V Activity POC ABG pH POC ABG pCO2 POC ABG pO2 ABG pO2 ABG HCO3 ABG Base Excess ABG Hemoglobin Oxyhemoglobin Sodium Potassium Chloride Carbon Dioxide BUN 73 H Creatinine 1.5 H Glucose 141 H POC Glucose 171 H Lactic Acid Calcium Phosphorus Magnesium Direct Bilirubin AST ALT Alkaline Phosphatase Lactate Dehydrogenase Troponin T C-Reactive Protein Total Protein Albumin Prealbumin Triglycerides Cholesterol LDL Cholesterol Direct HDL Cholesterol PTH Intact Urine pH Urine WBC (Auto) Urine Creatinine Urine Total Protein Fluid Total Protein Vancomycin Trough Rheumatoid Factor Complement C4 Miscellaneous Test Crossmatch 12/13/16 12/13/16 12/14/16 12:28 16:48 00:01 WBC RBC Hgb Hct MCV MCH MCHC RDW Plt Count Lymph % (Auto) [place] % (Auto) Lymph # [place] # Baso # Seg Neutrophils % Seg Neuts % (Manual) Lymphocytes % (Manual) Monocytes % (Manual) Eosinophils % (Manual) Basophils % (Manual) Nucleated RBC % Seg Neutrophils # Seg Neutrophils # Man Lymphocytes # (Manual) Monocytes # (Manual) Eosinophils # (Manual) Basophils # (Manual) PT INR Fibrinogen dRVVT Confirm Interp Factor V Activity POC ABG pH POC ABG pCO2 POC ABG pO2 ABG pO2 ABG HCO3 ABG Base Excess ABG Hemoglobin Oxyhemoglobin Sodium Potassium Chloride Carbon Dioxide BUN Creatinine Glucose POC Glucose 206 H 173 H 139 H Lactic Acid Calcium Phosphorus Magnesium Direct Bilirubin AST ALT Alkaline Phosphatase Lactate Dehydrogenase Troponin T C-Reactive Protein Total Protein Albumin Prealbumin Triglycerides Cholesterol LDL Cholesterol Direct HDL Cholesterol PTH Intact Urine pH Urine WBC (Auto) Urine Creatinine Urine Total Protein Fluid Total Protein Vancomycin Trough Rheumatoid Factor Complement C4 Miscellaneous Test Crossmatch 12/14/16 12/14/16 12/14/16 05:16 06:10 11:17 WBC RBC Hgb Hct MCV MCH MCHC RDW Plt Count Lymph % (Auto) [place] % (Auto) Lymph # [place] # Baso # Seg Neutrophils % Seg Neuts % (Manual) Lymphocytes % (Manual) Monocytes % (Manual) Eosinophils % (Manual) Basophils % (Manual) Nucleated RBC % Seg Neutrophils # Seg Neutrophils # Man Lymphocytes # (Manual) Monocytes # (Manual) Eosinophils # (Manual) Basophils # (Manual) PT INR Fibrinogen dRVVT Confirm Interp Factor V Activity POC ABG pH POC ABG pCO2 POC ABG pO2 ABG pO2 ABG HCO3 ABG Base Excess ABG Hemoglobin Oxyhemoglobin Sodium Potassium Chloride Carbon Dioxide BUN 57 H Creatinine 1.4 H Glucose 135 H POC Glucose 158 H 137 H Lactic Acid Calcium Phosphorus Magnesium Direct Bilirubin AST ALT Alkaline Phosphatase Lactate Dehydrogenase Troponin T C-Reactive Protein Total Protein Albumin Prealbumin Triglycerides Cholesterol LDL Cholesterol Direct HDL Cholesterol PTH Intact Urine pH Urine WBC (Auto) Urine Creatinine Urine Total Protein Fluid Total Protein Vancomycin Trough Rheumatoid Factor Complement C4 Miscellaneous Test Crossmatch 12/14/16 12/14/16 12/15/16 17:52 23:27 04:00 WBC RBC Hgb Hct MCV MCH MCHC RDW Plt Count Lymph % (Auto) [place] % (Auto) Lymph # [place] # Baso # Seg Neutrophils % Seg Neuts % (Manual) Lymphocytes % (Manual) Monocytes % (Manual) Eosinophils % (Manual) Basophils % (Manual) Nucleated RBC % Seg Neutrophils # Seg Neutrophils # Man Lymphocytes # (Manual) Monocytes # (Manual) Eosinophils # (Manual) Basophils # (Manual) PT INR Fibrinogen dRVVT Confirm Interp Factor V Activity POC ABG pH POC ABG pCO2 POC ABG pO2 ABG pO2 ABG HCO3 ABG Base Excess ABG Hemoglobin Oxyhemoglobin Sodium Potassium Chloride 97.9 L Carbon Dioxide BUN 75 H Creatinine 1.6 H Glucose 122 H POC Glucose 149 H 163 H Lactic Acid Calcium Phosphorus 5.20 H Magnesium Direct Bilirubin AST ALT Alkaline Phosphatase Lactate Dehydrogenase Troponin T C-Reactive Protein Total Protein Albumin Prealbumin Triglycerides Cholesterol LDL Cholesterol Direct HDL Cholesterol PTH Intact Urine pH Urine WBC (Auto) Urine Creatinine Urine Total Protein Fluid Total Protein Vancomycin Trough Rheumatoid Factor Complement C4 Miscellaneous Test Crossmatch 12/15/16 12/15/16 12/15/16 05:50 11:24 17:01 WBC RBC Hgb Hct MCV MCH MCHC RDW Plt Count Lymph % (Auto) [place] % (Auto) Lymph # [place] # Baso # Seg Neutrophils % Seg Neuts % (Manual) Lymphocytes % (Manual) Monocytes % (Manual) Eosinophils % (Manual) Basophils % (Manual) Nucleated RBC % Seg Neutrophils # Seg Neutrophils # Man Lymphocytes # (Manual) Monocytes # (Manual) Eosinophils # (Manual) Basophils # (Manual) PT INR Fibrinogen dRVVT Confirm Interp Factor V Activity POC ABG pH POC ABG pCO2 POC ABG pO2 ABG pO2 ABG HCO3 ABG Base Excess ABG Hemoglobin Oxyhemoglobin Sodium Potassium Chloride Carbon Dioxide BUN Creatinine Glucose POC Glucose 150 H 146 H 167 H Lactic Acid Calcium Phosphorus Magnesium Direct Bilirubin AST ALT Alkaline Phosphatase Lactate Dehydrogenase Troponin T C-Reactive Protein Total Protein Albumin Prealbumin Triglycerides Cholesterol LDL Cholesterol Direct HDL Cholesterol PTH Intact Urine pH Urine WBC (Auto) Urine Creatinine Urine Total Protein Fluid Total Protein Vancomycin Trough Rheumatoid Factor Complement C4 Miscellaneous Test Crossmatch 12/15/16 12/16/16 12/16/16 23:34 05:25 11:24 WBC RBC Hgb Hct MCV MCH MCHC RDW Plt Count Lymph % (Auto) [place] % (Auto) Lymph # [place] # Baso # Seg Neutrophils % Seg Neuts % (Manual) Lymphocytes % (Manual) Monocytes % (Manual) Eosinophils % (Manual) Basophils % (Manual) Nucleated RBC % Seg Neutrophils # Seg Neutrophils # Man Lymphocytes # (Manual) Monocytes # (Manual) Eosinophils # (Manual) Basophils # (Manual) PT INR Fibrinogen dRVVT Confirm Interp Factor V Activity POC ABG pH POC ABG pCO2 POC ABG pO2 ABG pO2 ABG HCO3 ABG Base Excess ABG Hemoglobin Oxyhemoglobin Sodium Potassium Chloride Carbon Dioxide BUN Creatinine Glucose POC Glucose 127 H 139 H 165 H Lactic Acid Calcium Phosphorus Magnesium Direct Bilirubin AST ALT Alkaline Phosphatase Lactate Dehydrogenase Troponin T C-Reactive Protein Total Protein Albumin Prealbumin Triglycerides Cholesterol LDL Cholesterol Direct HDL Cholesterol PTH Intact Urine pH Urine WBC (Auto) Urine Creatinine Urine Total Protein Fluid Total Protein Vancomycin Trough Rheumatoid Factor Complement C4 Miscellaneous Test Crossmatch 12/16/16 12/16/16 12/16/16 15:30 16:25 17:31 WBC 17.8 H RBC 2.38 L Hgb 6.4 L Hct 20.3 L MCV MCH 27 L MCHC RDW 17.4 H Plt Count Lymph % (Auto) [place] % (Auto) Lymph # [place] # Baso # Seg Neutrophils % Seg Neuts % (Manual) Lymphocytes % (Manual) Monocytes % (Manual) 10.0 H Eosinophils % (Manual) Basophils % (Manual) Nucleated RBC % Seg Neutrophils # Seg Neutrophils # Man 8.5 H Lymphocytes # (Manual) Monocytes # (Manual) 1.8 H Eosinophils # (Manual) Basophils # (Manual) PT INR Fibrinogen dRVVT Confirm Interp Factor V Activity POC ABG pH POC ABG pCO2 POC ABG pO2 ABG pO2 ABG HCO3 ABG Base Excess ABG Hemoglobin Oxyhemoglobin Sodium Potassium Chloride Carbon Dioxide BUN Creatinine Glucose POC Glucose 176 H Lactic Acid Calcium Phosphorus Magnesium Direct Bilirubin AST ALT Alkaline Phosphatase Lactate Dehydrogenase Troponin T C-Reactive Protein Total Protein Albumin Prealbumin Triglycerides Cholesterol LDL Cholesterol Direct HDL Cholesterol PTH Intact Urine pH Urine WBC (Auto) Urine Creatinine Urine Total Protein Fluid Total Protein Vancomycin Trough Rheumatoid Factor Complement C4 Miscellaneous Test Crossmatch See Detail 12/17/16 12/17/16 12/17/16 00:14 04:00 05:00 WBC 20.0 H RBC 2.99 L Hgb 8.5 L Hct 25.7 L MCV MCH MCHC RDW 17.2 H Plt Count Lymph % (Auto) [place] % (Auto) Lymph # [place] # Baso # Seg Neutrophils % Seg Neuts % (Manual) Lymphocytes % (Manual) Monocytes % (Manual) Eosinophils % (Manual) Basophils % (Manual) Nucleated RBC % Seg Neutrophils # Seg Neutrophils # Man Lymphocytes # (Manual) Monocytes # (Manual) Eosinophils # (Manual) Basophils # (Manual) PT INR Fibrinogen dRVVT Confirm Interp Factor V Activity POC ABG pH POC ABG pCO2 POC ABG pO2 ABG pO2 ABG HCO3 ABG Base Excess ABG Hemoglobin Oxyhemoglobin Sodium Potassium Chloride 97.7 L Carbon Dioxide BUN 73 H Creatinine 1.7 H Glucose 136 H POC Glucose 148 H Lactic Acid Calcium Phosphorus 2.20 L Magnesium 2.70 H Direct Bilirubin AST ALT Alkaline Phosphatase Lactate Dehydrogenase Troponin T C-Reactive Protein Total Protein Albumin Prealbumin Triglycerides Cholesterol LDL Cholesterol Direct HDL Cholesterol PTH Intact Urine pH Urine WBC (Auto) Urine Creatinine Urine Total Protein Fluid Total Protein Vancomycin Trough Rheumatoid Factor Complement C4 Miscellaneous Test Crossmatch 12/17/16 12/17/16 12/17/16 05:39 12:50 16:32 WBC RBC Hgb Hct MCV MCH MCHC RDW Plt Count Lymph % (Auto) [place] % (Auto) Lymph # [place] # Baso # Seg Neutrophils % Seg Neuts % (Manual) Lymphocytes % (Manual) Monocytes % (Manual) Eosinophils % (Manual) Basophils % (Manual) Nucleated RBC % Seg Neutrophils # Seg Neutrophils # Man Lymphocytes # (Manual) Monocytes # (Manual) Eosinophils # (Manual) Basophils # (Manual) PT INR Fibrinogen dRVVT Confirm Interp Factor V Activity POC ABG pH POC ABG pCO2 POC ABG pO2 ABG pO2 ABG HCO3 ABG Base Excess ABG Hemoglobin Oxyhemoglobin Sodium Potassium Chloride Carbon Dioxide BUN Creatinine Glucose POC Glucose 162 H 146 H 169 H Lactic Acid Calcium Phosphorus Magnesium Direct Bilirubin AST ALT Alkaline Phosphatase Lactate Dehydrogenase Troponin T C-Reactive Protein Total Protein Albumin Prealbumin Triglycerides Cholesterol LDL Cholesterol Direct HDL Cholesterol PTH Intact Urine pH Urine WBC (Auto) Urine Creatinine Urine Total Protein Fluid Total Protein Vancomycin Trough Rheumatoid Factor Complement C4 Miscellaneous Test Crossmatch 12/17/16 12/18/16 12/18/16 23:57 05:00 05:32 WBC RBC Hgb Hct MCV MCH MCHC RDW Plt Count Lymph % (Auto) [place] % (Auto) Lymph # [place] # Baso # Seg Neutrophils % Seg Neuts % (Manual) Lymphocytes % (Manual) Monocytes % (Manual) Eosinophils % (Manual) Basophils % (Manual) Nucleated RBC % Seg Neutrophils # Seg Neutrophils # Man Lymphocytes # (Manual) Monocytes # (Manual) Eosinophils # (Manual) Basophils # (Manual) PT INR Fibrinogen dRVVT Confirm Interp Factor V Activity POC ABG pH POC ABG pCO2 POC ABG pO2 ABG pO2 ABG HCO3 ABG Base Excess ABG Hemoglobin Oxyhemoglobin Sodium Potassium Chloride 97.0 L Carbon Dioxide BUN 63 H Creatinine 1.4 H Glucose 174 H POC Glucose 145 H 201 H Lactic Acid Calcium Phosphorus 1.70 L D Magnesium Direct Bilirubin AST ALT Alkaline Phosphatase 257 H Lactate Dehydrogenase Troponin T C-Reactive Protein Total Protein 5.9 L Albumin 1.8 L Prealbumin Triglycerides Cholesterol LDL Cholesterol Direct HDL Cholesterol PTH Intact Urine pH Urine WBC (Auto) Urine Creatinine Urine Total Protein Fluid Total Protein Vancomycin Trough Rheumatoid Factor Complement C4 Miscellaneous Test Crossmatch 12/18/16 12/18/16 12/18/16 11:43 16:52 23:52 WBC RBC Hgb Hct MCV MCH MCHC RDW Plt Count Lymph % (Auto) [place] % (Auto) Lymph # [place] # Baso # Seg Neutrophils % Seg Neuts % (Manual) Lymphocytes % (Manual) Monocytes % (Manual) Eosinophils % (Manual) Basophils % (Manual) Nucleated RBC % Seg Neutrophils # Seg Neutrophils # Man Lymphocytes # (Manual) Monocytes # (Manual) Eosinophils # (Manual) Basophils # (Manual) PT INR Fibrinogen dRVVT Confirm Interp Factor V Activity POC ABG pH POC ABG pCO2 POC ABG pO2 ABG pO2 ABG HCO3 ABG Base Excess ABG Hemoglobin Oxyhemoglobin Sodium Potassium Chloride Carbon Dioxide BUN Creatinine Glucose POC Glucose 177 H 110 H 162 H Lactic Acid Calcium Phosphorus Magnesium Direct Bilirubin AST ALT Alkaline Phosphatase Lactate Dehydrogenase Troponin T C-Reactive Protein Total Protein Albumin Prealbumin Triglycerides Cholesterol LDL Cholesterol Direct HDL Cholesterol PTH Intact Urine pH Urine WBC (Auto) Urine Creatinine Urine Total Protein Fluid Total Protein Vancomycin Trough Rheumatoid Factor Complement C4 Miscellaneous Test Crossmatch 12/19/16 12/19/16 12/19/16 05:02 05:24 09:30 WBC 20.1 H RBC 2.73 L Hgb 7.6 L Hct 23.6 L MCV MCH MCHC RDW 17.6 H Plt Count Lymph % (Auto) [place] % (Auto) Lymph # [place] # Baso # Seg Neutrophils % Seg Neuts % (Manual) Lymphocytes % (Manual) 13.0 L Monocytes % (Manual) Eosinophils % (Manual) Basophils % (Manual) Nucleated RBC % 1.0 H Seg Neutrophils # Seg Neutrophils # Man 12.9 H Lymphocytes # (Manual) Monocytes # (Manual) 1.4 H Eosinophils # (Manual) Basophils # (Manual) 0.2 H PT INR Fibrinogen dRVVT Confirm Interp Factor V Activity POC ABG pH POC ABG pCO2 POC ABG pO2 ABG pO2 ABG HCO3 ABG Base Excess ABG Hemoglobin Oxyhemoglobin Sodium Potassium Chloride 97.8 L Carbon Dioxide BUN 84 H Creatinine 1.6 H Glucose 133 H POC Glucose 134 H Lactic Acid Calcium Phosphorus Magnesium Direct Bilirubin AST ALT Alkaline Phosphatase Lactate Dehydrogenase Troponin T C-Reactive Protein Total Protein Albumin Prealbumin Triglycerides Cholesterol LDL Cholesterol Direct HDL Cholesterol PTH Intact Urine pH Urine WBC (Auto) Urine Creatinine Urine Total Protein Fluid Total Protein Vancomycin Trough Rheumatoid Factor Complement C4 Miscellaneous Test Crossmatch 12/19/16 12/19/16 12/19/16 09:36 11:12 18:29 WBC RBC Hgb Hct MCV MCH MCHC RDW Plt Count Lymph % (Auto) [place] % (Auto) Lymph # [place] # Baso # Seg Neutrophils % Seg Neuts % (Manual) Lymphocytes % (Manual) Monocytes % (Manual) Eosinophils % (Manual) Basophils % (Manual) Nucleated RBC % Seg Neutrophils # Seg Neutrophils # Man Lymphocytes # (Manual) Monocytes # (Manual) Eosinophils # (Manual) Basophils # (Manual) PT INR Fibrinogen dRVVT Confirm Interp Factor V Activity POC ABG pH 7.503 H POC ABG pCO2 30.1 L POC ABG pO2 ABG pO2 ABG HCO3 ABG Base Excess ABG Hemoglobin Oxyhemoglobin Sodium Potassium Chloride Carbon Dioxide BUN Creatinine Glucose POC Glucose 138 H 156 H Lactic Acid Calcium Phosphorus Magnesium Direct Bilirubin AST ALT Alkaline Phosphatase Lactate Dehydrogenase Troponin T C-Reactive Protein Total Protein Albumin Prealbumin Triglycerides Cholesterol LDL Cholesterol Direct HDL Cholesterol PTH Intact Urine pH Urine WBC (Auto) Urine Creatinine Urine Total Protein Fluid Total Protein Vancomycin Trough Rheumatoid Factor Complement C4 Miscellaneous Test Crossmatch 12/20/16 12/20/16 12/20/16 00:03 06:17 07:07 WBC RBC Hgb Hct MCV MCH MCHC RDW Plt Count Lymph % (Auto) [place] % (Auto) Lymph # [place] # Baso # Seg Neutrophils % Seg Neuts % (Manual) Lymphocytes % (Manual) Monocytes % (Manual) Eosinophils % (Manual) Basophils % (Manual) Nucleated RBC % Seg Neutrophils # Seg Neutrophils # Man Lymphocytes # (Manual) Monocytes # (Manual) Eosinophils # (Manual) Basophils # (Manual) PT INR Fibrinogen dRVVT Confirm Interp Factor V Activity POC ABG pH POC ABG pCO2 POC ABG pO2 ABG pO2 ABG HCO3 ABG Base Excess ABG Hemoglobin Oxyhemoglobin Sodium Potassium Chloride 97.1 L Carbon Dioxide 20 L BUN 97 H Creatinine 1.8 H Glucose 153 H POC Glucose 152 H 175 H Lactic Acid Calcium Phosphorus Magnesium Direct Bilirubin AST ALT Alkaline Phosphatase Lactate Dehydrogenase Troponin T C-Reactive Protein Total Protein Albumin Prealbumin Triglycerides Cholesterol LDL Cholesterol Direct HDL Cholesterol PTH Intact Urine pH Urine WBC (Auto) Urine Creatinine Urine Total Protein Fluid Total Protein Vancomycin Trough Rheumatoid Factor Complement C4 Miscellaneous Test Crossmatch 12/20/16 12/20/16 12/20/16 12:00 17:42 23:53 WBC RBC Hgb Hct MCV MCH MCHC RDW Plt Count Lymph % (Auto) [place] % (Auto) Lymph # [place] # Baso # Seg Neutrophils % Seg Neuts % (Manual) Lymphocytes % (Manual) Monocytes % (Manual) Eosinophils % (Manual) Basophils % (Manual) Nucleated RBC % Seg Neutrophils # Seg Neutrophils # Man Lymphocytes # (Manual) Monocytes # (Manual) Eosinophils # (Manual) Basophils # (Manual) PT INR Fibrinogen dRVVT Confirm Interp Factor V Activity POC ABG pH POC ABG pCO2 POC ABG pO2 ABG pO2 ABG HCO3 ABG Base Excess ABG Hemoglobin Oxyhemoglobin Sodium Potassium Chloride Carbon Dioxide BUN Creatinine Glucose POC Glucose 141 H 156 H 132 H Lactic Acid Calcium Phosphorus Magnesium Direct Bilirubin AST ALT Alkaline Phosphatase Lactate Dehydrogenase Troponin T C-Reactive Protein Total Protein Albumin Prealbumin Triglycerides Cholesterol LDL Cholesterol Direct HDL Cholesterol PTH Intact Urine pH Urine WBC (Auto) Urine Creatinine Urine Total Protein Fluid Total Protein Vancomycin Trough Rheumatoid Factor Complement C4 Miscellaneous Test Crossmatch 12/21/16 12/21/16 12/21/16 05:49 08:50 12:19 WBC RBC Hgb Hct MCV MCH MCHC RDW Plt Count Lymph % (Auto) [place] % (Auto) Lymph # [place] # Baso # Seg Neutrophils % Seg Neuts % (Manual) Lymphocytes % (Manual) Monocytes % (Manual) Eosinophils % (Manual) Basophils % (Manual) Nucleated RBC % Seg Neutrophils # Seg Neutrophils # Man Lymphocytes # (Manual) Monocytes # (Manual) Eosinophils # (Manual) Basophils # (Manual) PT INR Fibrinogen dRVVT Confirm Interp Factor V Activity POC ABG pH POC ABG pCO2 POC ABG pO2 ABG pO2 ABG HCO3 ABG Base Excess ABG Hemoglobin Oxyhemoglobin Sodium Potassium 5.2 H D Chloride Carbon Dioxide BUN 63 H Creatinine Glucose 122 H POC Glucose 132 H 136 H Lactic Acid Calcium 8.3 L Phosphorus Magnesium Direct Bilirubin AST ALT Alkaline Phosphatase Lactate Dehydrogenase Troponin T C-Reactive Protein Total Protein Albumin Prealbumin Triglycerides Cholesterol LDL Cholesterol Direct HDL Cholesterol PTH Intact Urine pH Urine WBC (Auto) Urine Creatinine Urine Total Protein Fluid Total Protein Vancomycin Trough Rheumatoid Factor Complement C4 Miscellaneous Test Crossmatch 12/21/16 12/21/16 12/22/16 17:22 23:58 05:49 WBC RBC Hgb Hct MCV MCH MCHC RDW Plt Count Lymph % (Auto) [place] % (Auto) Lymph # [place] # Baso # Seg Neutrophils % Seg Neuts % (Manual) Lymphocytes % (Manual) Monocytes % (Manual) Eosinophils % (Manual) Basophils % (Manual) Nucleated RBC % Seg Neutrophils # Seg Neutrophils # Man Lymphocytes # (Manual) Monocytes # (Manual) Eosinophils # (Manual) Basophils # (Manual) PT INR Fibrinogen dRVVT Confirm Interp Factor V Activity POC ABG pH POC ABG pCO2 POC ABG pO2 ABG pO2 ABG HCO3 ABG Base Excess ABG Hemoglobin Oxyhemoglobin Sodium Potassium Chloride Carbon Dioxide BUN Creatinine Glucose POC Glucose 135 H 149 H 140 H Lactic Acid Calcium Phosphorus Magnesium Direct Bilirubin AST ALT Alkaline Phosphatase Lactate Dehydrogenase Troponin T C-Reactive Protein Total Protein Albumin Prealbumin Triglycerides Cholesterol LDL Cholesterol Direct HDL Cholesterol PTH Intact Urine pH Urine WBC (Auto) Urine Creatinine Urine Total Protein Fluid Total Protein Vancomycin Trough Rheumatoid Factor Complement C4 Miscellaneous Test Crossmatch 12/22/16 12/22/16 12/22/16 06:10 11:17 17:31 WBC RBC Hgb Hct MCV MCH MCHC RDW Plt Count Lymph % (Auto) [place] % (Auto) Lymph # [place] # Baso # Seg Neutrophils % Seg Neuts % (Manual) Lymphocytes % (Manual) Monocytes % (Manual) Eosinophils % (Manual) Basophils % (Manual) Nucleated RBC % Seg Neutrophils # Seg Neutrophils # Man Lymphocytes # (Manual) Monocytes # (Manual) Eosinophils # (Manual) Basophils # (Manual) PT INR Fibrinogen dRVVT Confirm Interp Factor V Activity POC ABG pH POC ABG pCO2 POC ABG pO2 ABG pO2 ABG HCO3 ABG Base Excess ABG Hemoglobin Oxyhemoglobin Sodium Potassium Chloride Carbon Dioxide BUN 76 H Creatinine 1.5 H Glucose 241 H POC Glucose 193 H 148 H Lactic Acid Calcium Phosphorus Magnesium Direct Bilirubin AST ALT Alkaline Phosphatase Lactate Dehydrogenase Troponin T C-Reactive Protein Total Protein Albumin Prealbumin Triglycerides Cholesterol LDL Cholesterol Direct HDL Cholesterol PTH Intact Urine pH Urine WBC (Auto) Urine Creatinine Urine Total Protein Fluid Total Protein Vancomycin Trough Rheumatoid Factor Complement C4 Miscellaneous Test Crossmatch 12/22/16 12/23/16 12/23/16 23:58 05:00 05:26 WBC RBC Hgb Hct MCV MCH MCHC RDW Plt Count Lymph % (Auto) [place] % (Auto) Lymph # [place] # Baso # Seg Neutrophils % Seg Neuts % (Manual) Lymphocytes % (Manual) Monocytes % (Manual) Eosinophils % (Manual) Basophils % (Manual) Nucleated RBC % Seg Neutrophils # Seg Neutrophils # Man Lymphocytes # (Manual) Monocytes # (Manual) Eosinophils # (Manual) Basophils # (Manual) PT INR Fibrinogen dRVVT Confirm Interp Factor V Activity POC ABG pH POC ABG pCO2 POC ABG pO2 ABG pO2 ABG HCO3 ABG Base Excess ABG Hemoglobin Oxyhemoglobin Sodium Potassium Chloride Carbon Dioxide BUN 49 H Creatinine Glucose 143 H POC Glucose 165 H 154 H Lactic Acid Calcium 8.2 L Phosphorus Magnesium 1.60 L Direct Bilirubin AST ALT Alkaline Phosphatase Lactate Dehydrogenase Troponin T C-Reactive Protein Total Protein Albumin Prealbumin Triglycerides Cholesterol LDL Cholesterol Direct HDL Cholesterol PTH Intact Urine pH Urine WBC (Auto) Urine Creatinine Urine Total Protein Fluid Total Protein Vancomycin Trough Rheumatoid Factor Complement C4 Miscellaneous Test Crossmatch 12/23/16 12/23/16 12/24/16 12:35 17:01 00:01 WBC RBC Hgb Hct MCV MCH MCHC RDW Plt Count Lymph % (Auto) [place] % (Auto) Lymph # [place] # Baso # Seg Neutrophils % Seg Neuts % (Manual) Lymphocytes % (Manual) Monocytes % (Manual) Eosinophils % (Manual) Basophils % (Manual) Nucleated RBC % Seg Neutrophils # Seg Neutrophils # Man Lymphocytes # (Manual) Monocytes # (Manual) Eosinophils # (Manual) Basophils # (Manual) PT INR Fibrinogen dRVVT Confirm Interp Factor V Activity POC ABG pH POC ABG pCO2 POC ABG pO2 ABG pO2 ABG HCO3 ABG Base Excess ABG Hemoglobin Oxyhemoglobin Sodium Potassium Chloride Carbon Dioxide BUN Creatinine Glucose POC Glucose 164 H 149 H 135 H Lactic Acid Calcium Phosphorus Magnesium Direct Bilirubin AST ALT Alkaline Phosphatase Lactate Dehydrogenase Troponin T C-Reactive Protein Total Protein Albumin Prealbumin Triglycerides Cholesterol LDL Cholesterol Direct HDL Cholesterol PTH Intact Urine pH Urine WBC (Auto) Urine Creatinine Urine Total Protein Fluid Total Protein Vancomycin Trough Rheumatoid Factor Complement C4 Miscellaneous Test Crossmatch 12/24/16 12/24/16 12/24/16 05:41 07:01 11:38 WBC RBC Hgb Hct MCV MCH MCHC RDW Plt Count Lymph % (Auto) [place] % (Auto) Lymph # [place] # Baso # Seg Neutrophils % Seg Neuts % (Manual) Lymphocytes % (Manual) Monocytes % (Manual) Eosinophils % (Manual) Basophils % (Manual) Nucleated RBC % Seg Neutrophils # Seg Neutrophils # Man Lymphocytes # (Manual) Monocytes # (Manual) Eosinophils # (Manual) Basophils # (Manual) PT INR Fibrinogen dRVVT Confirm Interp Factor V Activity POC ABG pH POC ABG pCO2 POC ABG pO2 ABG pO2 ABG HCO3 ABG Base Excess ABG Hemoglobin Oxyhemoglobin Sodium Potassium Chloride Carbon Dioxide BUN 72 H Creatinine 1.3 H Glucose 130 H POC Glucose 132 H 156 H Lactic Acid Calcium 8.2 L Phosphorus Magnesium Direct Bilirubin AST ALT Alkaline Phosphatase Lactate Dehydrogenase Troponin T C-Reactive Protein Total Protein Albumin Prealbumin Triglycerides Cholesterol LDL Cholesterol Direct HDL Cholesterol PTH Intact Urine pH Urine WBC (Auto) Urine Creatinine Urine Total Protein Fluid Total Protein Vancomycin Trough Rheumatoid Factor Complement C4 Miscellaneous Test Crossmatch 12/24/16 12/25/16 12/25/16 17:53 00:23 05:45 WBC RBC Hgb Hct MCV MCH MCHC RDW Plt Count Lymph % (Auto) [place] % (Auto) Lymph # [place] # Baso # Seg Neutrophils % Seg Neuts % (Manual) Lymphocytes % (Manual) Monocytes % (Manual) Eosinophils % (Manual) Basophils % (Manual) Nucleated RBC % Seg Neutrophils # Seg Neutrophils # Man Lymphocytes # (Manual) Monocytes # (Manual) Eosinophils # (Manual) Basophils # (Manual) PT INR Fibrinogen dRVVT Confirm Interp Factor V Activity POC ABG pH POC ABG pCO2 POC ABG pO2 ABG pO2 ABG HCO3 ABG Base Excess ABG Hemoglobin Oxyhemoglobin Sodium 146 H Potassium Chloride Carbon Dioxide BUN 51 H Creatinine Glucose 109 H POC Glucose 169 H 117 H Lactic Acid Calcium Phosphorus Magnesium Direct Bilirubin AST ALT Alkaline Phosphatase Lactate Dehydrogenase Troponin T C-Reactive Protein Total Protein Albumin Prealbumin Triglycerides Cholesterol LDL Cholesterol Direct HDL Cholesterol PTH Intact Urine pH Urine WBC (Auto) Urine Creatinine Urine Total Protein Fluid Total Protein Vancomycin Trough Rheumatoid Factor Complement C4 Miscellaneous Test Crossmatch 12/25/16 12/25/16 12/25/16 06:43 11:29 17:14 WBC RBC Hgb Hct MCV MCH MCHC RDW Plt Count Lymph % (Auto) [place] % (Auto) Lymph # [place] # Baso # Seg Neutrophils % Seg Neuts % (Manual) Lymphocytes % (Manual) Monocytes % (Manual) Eosinophils % (Manual) Basophils % (Manual) Nucleated RBC % Seg Neutrophils # Seg Neutrophils # Man Lymphocytes # (Manual) Monocytes # (Manual) Eosinophils # (Manual) Basophils # (Manual) PT INR Fibrinogen dRVVT Confirm Interp Factor V Activity POC ABG pH POC ABG pCO2 POC ABG pO2 ABG pO2 ABG HCO3 ABG Base Excess ABG Hemoglobin Oxyhemoglobin Sodium Potassium Chloride Carbon Dioxide BUN Creatinine Glucose POC Glucose 117 H 128 H 120 H Lactic Acid Calcium Phosphorus Magnesium Direct Bilirubin AST ALT Alkaline Phosphatase Lactate Dehydrogenase Troponin T C-Reactive Protein Total Protein Albumin Prealbumin Triglycerides Cholesterol LDL Cholesterol Direct HDL Cholesterol PTH Intact Urine pH Urine WBC (Auto) Urine Creatinine Urine Total Protein Fluid Total Protein Vancomycin Trough Rheumatoid Factor Complement C4 Miscellaneous Test Crossmatch 12/25/16 12/26/16 12/26/16 23:54 05:40 05:50 WBC 16.2 H RBC 2.32 L Hgb 6.2 L Hct 20.1 L MCV MCH 27 L MCHC RDW 18.6 H Plt Count Lymph % (Auto) [place] % (Auto) Lymph # [place] # Baso # Seg Neutrophils % Seg Neuts % (Manual) Lymphocytes % (Manual) Monocytes % (Manual) Eosinophils % (Manual) Basophils % (Manual) Nucleated RBC % Seg Neutrophils # Seg Neutrophils # Man Lymphocytes # (Manual) Monocytes # (Manual) Eosinophils # (Manual) Basophils # (Manual) PT INR Fibrinogen dRVVT Confirm Interp Factor V Activity POC ABG pH POC ABG pCO2 POC ABG pO2 ABG pO2 ABG HCO3 ABG Base Excess ABG Hemoglobin Oxyhemoglobin Sodium Potassium Chloride Carbon Dioxide BUN Creatinine Glucose POC Glucose 126 H 132 H Lactic Acid Calcium Phosphorus Magnesium Direct Bilirubin AST ALT Alkaline Phosphatase Lactate Dehydrogenase Troponin T C-Reactive Protein Total Protein Albumin Prealbumin Triglycerides Cholesterol LDL Cholesterol Direct HDL Cholesterol PTH Intact Urine pH Urine WBC (Auto) Urine Creatinine Urine Total Protein Fluid Total Protein Vancomycin Trough Rheumatoid Factor Complement C4 Miscellaneous Test Crossmatch 12/26/16 12/26/16 12/26/16 05:50 12:17 12:33 WBC RBC Hgb Hct MCV MCH MCHC RDW Plt Count Lymph % (Auto) [place] % (Auto) Lymph # [place] # Baso # Seg Neutrophils % Seg Neuts % (Manual) Lymphocytes % (Manual) Monocytes % (Manual) Eosinophils % (Manual) Basophils % (Manual) Nucleated RBC % Seg Neutrophils # Seg Neutrophils # Man Lymphocytes # (Manual) Monocytes # (Manual) Eosinophils # (Manual) Basophils # (Manual) PT INR Fibrinogen dRVVT Confirm Interp Factor V Activity POC ABG pH POC ABG pCO2 POC ABG pO2 ABG pO2 ABG HCO3 ABG Base Excess ABG Hemoglobin Oxyhemoglobin Sodium Potassium Chloride Carbon Dioxide BUN 73 H Creatinine 1.3 H Glucose 113 H POC Glucose 117 H Lactic Acid Calcium Phosphorus Magnesium Direct Bilirubin AST ALT Alkaline Phosphatase Lactate Dehydrogenase Troponin T C-Reactive Protein Total Protein Albumin Prealbumin Triglycerides Cholesterol LDL Cholesterol Direct HDL Cholesterol PTH Intact Urine pH Urine WBC (Auto) Urine Creatinine Urine Total Protein Fluid Total Protein Vancomycin Trough Rheumatoid Factor Complement C4 Miscellaneous Test Crossmatch See Detail 12/26/16 12/26/16 12/27/16 20:00 23:21 05:00 WBC RBC Hgb 8.4 L Hct 26.3 L D MCV MCH MCHC RDW Plt Count Lymph % (Auto) [place] % (Auto) Lymph # [place] # Baso # Seg Neutrophils % Seg Neuts % (Manual) Lymphocytes % (Manual) Monocytes % (Manual) Eosinophils % (Manual) Basophils % (Manual) Nucleated RBC % Seg Neutrophils # Seg Neutrophils # Man Lymphocytes # (Manual) Monocytes # (Manual) Eosinophils # (Manual) Basophils # (Manual) PT INR Fibrinogen dRVVT Confirm Interp Factor V Activity POC ABG pH POC ABG pCO2 POC ABG pO2 ABG pO2 ABG HCO3 ABG Base Excess ABG Hemoglobin Oxyhemoglobin Sodium Potassium Chloride Carbon Dioxide BUN 85 H Creatinine 1.6 H Glucose 118 H POC Glucose 124 H Lactic Acid Calcium Phosphorus 4.80 H Magnesium Direct Bilirubin AST ALT Alkaline Phosphatase Lactate Dehydrogenase Troponin T C-Reactive Protein Total Protein Albumin Prealbumin Triglycerides Cholesterol LDL Cholesterol Direct HDL Cholesterol PTH Intact Urine pH Urine WBC (Auto) Urine Creatinine Urine Total Protein Fluid Total Protein Vancomycin Trough Rheumatoid Factor Complement C4 Miscellaneous Test Crossmatch 12/27/16 12/27/16 12/27/16 05:00 05:35 12:24 WBC RBC Hgb 7.6 L Hct 22.8 L MCV MCH MCHC RDW Plt Count Lymph % (Auto) [place] % (Auto) Lymph # [place] # Baso # Seg Neutrophils % Seg Neuts % (Manual) Lymphocytes % (Manual) Monocytes % (Manual) Eosinophils % (Manual) Basophils % (Manual) Nucleated RBC % Seg Neutrophils # Seg Neutrophils # Man Lymphocytes # (Manual) Monocytes # (Manual) Eosinophils # (Manual) Basophils # (Manual) PT INR Fibrinogen dRVVT Confirm Interp Factor V Activity POC ABG pH POC ABG pCO2 POC ABG pO2 ABG pO2 ABG HCO3 ABG Base Excess ABG Hemoglobin Oxyhemoglobin Sodium Potassium Chloride Carbon Dioxide BUN Creatinine Glucose POC Glucose 115 H 131 H Lactic Acid Calcium Phosphorus Magnesium Direct Bilirubin AST ALT Alkaline Phosphatase Lactate Dehydrogenase Troponin T C-Reactive Protein Total Protein Albumin Prealbumin Triglycerides Cholesterol LDL Cholesterol Direct HDL Cholesterol PTH Intact Urine pH Urine WBC (Auto) Urine Creatinine Urine Total Protein Fluid Total Protein Vancomycin Trough Rheumatoid Factor Complement C4 Miscellaneous Test Crossmatch 12/27/16 12/28/16 12/28/16 17:16 00:18 04:00 WBC RBC Hgb Hct MCV MCH MCHC RDW Plt Count Lymph % (Auto) [place] % (Auto) Lymph # [place] # Baso # Seg Neutrophils % Seg Neuts % (Manual) Lymphocytes % (Manual) Monocytes % (Manual) Eosinophils % (Manual) Basophils % (Manual) Nucleated RBC % Seg Neutrophils # Seg Neutrophils # Man Lymphocytes # (Manual) Monocytes # (Manual) Eosinophils # (Manual) Basophils # (Manual) PT INR Fibrinogen dRVVT Confirm Interp Factor V Activity POC ABG pH POC ABG pCO2 POC ABG pO2 ABG pO2 ABG HCO3 ABG Base Excess ABG Hemoglobin Oxyhemoglobin Sodium Potassium 3.5 L Chloride Carbon Dioxide BUN 57 H Creatinine Glucose 118 H POC Glucose 136 H 120 H Lactic Acid Calcium 8.3 L Phosphorus Magnesium Direct Bilirubin AST ALT Alkaline Phosphatase Lactate Dehydrogenase Troponin T C-Reactive Protein Total Protein Albumin Prealbumin Triglycerides Cholesterol LDL Cholesterol Direct HDL Cholesterol PTH Intact Urine pH Urine WBC (Auto) Urine Creatinine Urine Total Protein Fluid Total Protein Vancomycin Trough Rheumatoid Factor Complement C4 Miscellaneous Test Crossmatch 12/28/16 12/28/16 12/28/16 04:00 05:11 08:30 WBC 17.0 H RBC 2.58 L Hgb 7.1 L Hct 22.0 L MCV MCH MCHC RDW 17.6 H Plt Count Lymph % (Auto) 12.2 L [place] % (Auto) Lymph # [place] # 1.1 H Baso # Seg Neutrophils % 80.5 H Seg Neuts % (Manual) Lymphocytes % (Manual) Monocytes % (Manual) Eosinophils % (Manual) Basophils % (Manual) Nucleated RBC % Seg Neutrophils # 13.7 H Seg Neutrophils # Man Lymphocytes # (Manual) Monocytes # (Manual) Eosinophils # (Manual) Basophils # (Manual) PT 16.1 H INR 1.23 H Fibrinogen dRVVT Confirm Interp Factor V Activity POC ABG pH POC ABG pCO2 POC ABG pO2 ABG pO2 ABG HCO3 ABG Base Excess ABG Hemoglobin Oxyhemoglobin Sodium Potassium Chloride Carbon Dioxide BUN Creatinine Glucose POC Glucose 122 H Lactic Acid Calcium Phosphorus Magnesium Direct Bilirubin AST ALT Alkaline Phosphatase Lactate Dehydrogenase Troponin T C-Reactive Protein Total Protein Albumin Prealbumin Triglycerides Cholesterol LDL Cholesterol Direct HDL Cholesterol PTH Intact Urine pH Urine WBC (Auto) Urine Creatinine Urine Total Protein Fluid Total Protein Vancomycin Trough Rheumatoid Factor Complement C4 Miscellaneous Test Crossmatch 12/28/16 12/28/16 12/28/16 12:27 16:32 23:46 WBC RBC Hgb Hct MCV MCH MCHC RDW Plt Count Lymph % (Auto) [place] % (Auto) Lymph # [place] # Baso # Seg Neutrophils % Seg Neuts % (Manual) Lymphocytes % (Manual) Monocytes % (Manual) Eosinophils % (Manual) Basophils % (Manual) Nucleated RBC % Seg Neutrophils # Seg Neutrophils # Man Lymphocytes # (Manual) Monocytes # (Manual) Eosinophils # (Manual) Basophils # (Manual) PT INR Fibrinogen dRVVT Confirm Interp Factor V Activity POC ABG pH POC ABG pCO2 POC ABG pO2 ABG pO2 ABG HCO3 ABG Base Excess ABG Hemoglobin Oxyhemoglobin Sodium Potassium Chloride Carbon Dioxide BUN Creatinine Glucose POC Glucose 127 H 117 H 108 H Lactic Acid Calcium Phosphorus Magnesium Direct Bilirubin AST ALT Alkaline Phosphatase Lactate Dehydrogenase Troponin T C-Reactive Protein Total Protein Albumin Prealbumin Triglycerides Cholesterol LDL Cholesterol Direct HDL Cholesterol PTH Intact Urine pH Urine WBC (Auto) Urine Creatinine Urine Total Protein Fluid Total Protein Vancomycin Trough Rheumatoid Factor Complement C4 Miscellaneous Test Crossmatch 12/29/16 12/29/16 12/29/16 05:15 05:15 05:32 WBC RBC Hgb Hct MCV MCH MCHC RDW Plt Count Lymph % (Auto) [place] % (Auto) Lymph # [place] # Baso # Seg Neutrophils % Seg Neuts % (Manual) Lymphocytes % (Manual) Monocytes % (Manual) Eosinophils % (Manual) Basophils % (Manual) Nucleated RBC % Seg Neutrophils # Seg Neutrophils # Man Lymphocytes # (Manual) Monocytes # (Manual) Eosinophils # (Manual) Basophils # (Manual) PT INR Fibrinogen dRVVT Confirm Interp Factor V Activity POC ABG pH POC ABG pCO2 POC ABG pO2 ABG pO2 ABG HCO3 ABG Base Excess ABG Hemoglobin Oxyhemoglobin Sodium Potassium Chloride Carbon Dioxide BUN 74 H Creatinine 1.6 H Glucose 111 H POC Glucose 123 H Lactic Acid Calcium Phosphorus Magnesium Direct Bilirubin AST ALT Alkaline Phosphatase Lactate Dehydrogenase Troponin T C-Reactive Protein Total Protein Albumin Prealbumin 0.110 L Triglycerides Cholesterol LDL Cholesterol Direct HDL Cholesterol PTH Intact Urine pH Urine WBC (Auto) Urine Creatinine Urine Total Protein Fluid Total Protein Vancomycin Trough Rheumatoid Factor Complement C4 Miscellaneous Test Crossmatch 12/29/16 12/29/16 12/29/16 11:43 13:45 14:00 WBC 13.8 H RBC 2.26 L Hgb 6.3 L Hct 20.4 L MCV MCH MCHC RDW 18.3 H Plt Count Lymph % (Auto) [place] % (Auto) Lymph # [place] # 0.9 H Baso # Seg Neutrophils % 78.6 H Seg Neuts % (Manual) Lymphocytes % (Manual) Monocytes % (Manual) Eosinophils % (Manual) Basophils % (Manual) Nucleated RBC % Seg Neutrophils # 10.8 H Seg Neutrophils # Man Lymphocytes # (Manual) Monocytes # (Manual) Eosinophils # (Manual) Basophils # (Manual) PT INR Fibrinogen dRVVT Confirm Interp Factor V Activity POC ABG pH POC ABG pCO2 POC ABG pO2 ABG pO2 ABG HCO3 ABG Base Excess ABG Hemoglobin Oxyhemoglobin Sodium Potassium Chloride Carbon Dioxide BUN Creatinine Glucose POC Glucose 133 H Lactic Acid Calcium Phosphorus Magnesium Direct Bilirubin AST ALT Alkaline Phosphatase Lactate Dehydrogenase Troponin T C-Reactive Protein Total Protein Albumin Prealbumin Triglycerides Cholesterol LDL Cholesterol Direct HDL Cholesterol PTH Intact Urine pH Urine WBC (Auto) Urine Creatinine Urine Total Protein Fluid Total Protein Vancomycin Trough Rheumatoid Factor Complement C4 Miscellaneous Test Crossmatch See Detail 12/29/16 12/29/16 12/29/16 17:03 23:15 23:22 WBC RBC Hgb 7.3 L Hct 22.3 L MCV MCH MCHC RDW Plt Count Lymph % (Auto) [place] % (Auto) Lymph # [place] # Baso # Seg Neutrophils % Seg Neuts % (Manual) Lymphocytes % (Manual) Monocytes % (Manual) Eosinophils % (Manual) Basophils % (Manual) Nucleated RBC % Seg Neutrophils # Seg Neutrophils # Man Lymphocytes # (Manual) Monocytes # (Manual) Eosinophils # (Manual) Basophils # (Manual) PT INR Fibrinogen dRVVT Confirm Interp Factor V Activity POC ABG pH POC ABG pCO2 POC ABG pO2 ABG pO2 ABG HCO3 ABG Base Excess ABG Hemoglobin Oxyhemoglobin Sodium Potassium Chloride Carbon Dioxide BUN Creatinine Glucose POC Glucose 139 H 120 H Lactic Acid Calcium Phosphorus Magnesium Direct Bilirubin AST ALT Alkaline Phosphatase Lactate Dehydrogenase Troponin T C-Reactive Protein Total Protein Albumin Prealbumin Triglycerides Cholesterol LDL Cholesterol Direct HDL Cholesterol PTH Intact Urine pH Urine WBC (Auto) Urine Creatinine Urine Total Protein Fluid Total Protein Vancomycin Trough Rheumatoid Factor Complement C4 Miscellaneous Test Crossmatch 12/30/16 12/30/16 12/30/16 04:20 04:20 05:43 WBC 15.6 H RBC 2.81 L Hgb 8.0 L Hct 24.0 L MCV MCH MCHC RDW 16.9 H Plt Count Lymph % (Auto) [place] % (Auto) Lymph # [place] # 1.0 H Baso # Seg Neutrophils % 76.2 H Seg Neuts % (Manual) Lymphocytes % (Manual) Monocytes % (Manual) Eosinophils % (Manual) Basophils % (Manual) Nucleated RBC % Seg Neutrophils # 11.9 H Seg Neutrophils # Man Lymphocytes # (Manual) Monocytes # (Manual) Eosinophils # (Manual) Basophils # (Manual) PT INR Fibrinogen dRVVT Confirm Interp Factor V Activity POC ABG pH POC ABG pCO2 POC ABG pO2 ABG pO2 ABG HCO3 ABG Base Excess ABG Hemoglobin Oxyhemoglobin Sodium Potassium Chloride Carbon Dioxide BUN 87 H Creatinine 1.8 H Glucose 119 H POC Glucose 115 H Lactic Acid Calcium Phosphorus Magnesium Direct Bilirubin AST ALT Alkaline Phosphatase Lactate Dehydrogenase Troponin T C-Reactive Protein Total Protein Albumin Prealbumin Triglycerides Cholesterol LDL Cholesterol Direct HDL Cholesterol PTH Intact Urine pH Urine WBC (Auto) Urine Creatinine Urine Total Protein Fluid Total Protein Vancomycin Trough Rheumatoid Factor Complement C4 Miscellaneous Test Crossmatch 12/30/16 12/30/16 12/31/16 17:27 23:21 04:00 WBC RBC Hgb Hct MCV MCH MCHC RDW Plt Count Lymph % (Auto) [place] % (Auto) Lymph # [place] # Baso # Seg Neutrophils % Seg Neuts % (Manual) Lymphocytes % (Manual) Monocytes % (Manual) Eosinophils % (Manual) Basophils % (Manual) Nucleated RBC % Seg Neutrophils # Seg Neutrophils # Man Lymphocytes # (Manual) Monocytes # (Manual) Eosinophils # (Manual) Basophils # (Manual) PT INR Fibrinogen dRVVT Confirm Interp Factor V Activity POC ABG pH POC ABG pCO2 POC ABG pO2 ABG pO2 ABG HCO3 ABG Base Excess ABG Hemoglobin Oxyhemoglobin Sodium Potassium Chloride Carbon Dioxide BUN 59 H Creatinine Glucose 298 H POC Glucose 144 H 125 H Lactic Acid Calcium Phosphorus Magnesium Direct Bilirubin AST ALT Alkaline Phosphatase Lactate Dehydrogenase Troponin T C-Reactive Protein Total Protein Albumin Prealbumin Triglycerides Cholesterol LDL Cholesterol Direct HDL Cholesterol PTH Intact Urine pH Urine WBC (Auto) Urine Creatinine Urine Total Protein Fluid Total Protein Vancomycin Trough Rheumatoid Factor Complement C4 Miscellaneous Test Crossmatch 12/31/16 12/31/16 12/31/16 05:11 12:18 18:17 WBC RBC Hgb Hct MCV MCH MCHC RDW Plt Count Lymph % (Auto) [place] % (Auto) Lymph # [place] # Baso # Seg Neutrophils % Seg Neuts % (Manual) Lymphocytes % (Manual) Monocytes % (Manual) Eosinophils % (Manual) Basophils % (Manual) Nucleated RBC % Seg Neutrophils # Seg Neutrophils # Man Lymphocytes # (Manual) Monocytes # (Manual) Eosinophils # (Manual) Basophils # (Manual) PT INR Fibrinogen dRVVT Confirm Interp Factor V Activity POC ABG pH POC ABG pCO2 POC ABG pO2 ABG pO2 ABG HCO3 ABG Base Excess ABG Hemoglobin Oxyhemoglobin Sodium Potassium Chloride Carbon Dioxide BUN Creatinine Glucose POC Glucose 167 H 125 H 133 H Lactic Acid Calcium Phosphorus Magnesium Direct Bilirubin AST ALT Alkaline Phosphatase Lactate Dehydrogenase Troponin T C-Reactive Protein Total Protein Albumin Prealbumin Triglycerides Cholesterol LDL Cholesterol Direct HDL Cholesterol PTH Intact Urine pH Urine WBC (Auto) Urine Creatinine Urine Total Protein Fluid Total Protein Vancomycin Trough Rheumatoid Factor Complement C4 Miscellaneous Test Crossmatch 12/31/16 01/01/17 01/01/17 23:55 05:00 05:12 WBC RBC Hgb Hct MCV MCH MCHC RDW Plt Count Lymph % (Auto) [place] % (Auto) Lymph # [place] # Baso # Seg Neutrophils % Seg Neuts % (Manual) Lymphocytes % (Manual) Monocytes % (Manual) Eosinophils % (Manual) Basophils % (Manual) Nucleated RBC % Seg Neutrophils # Seg Neutrophils # Man Lymphocytes # (Manual) Monocytes # (Manual) Eosinophils # (Manual) Basophils # (Manual) PT INR Fibrinogen dRVVT Confirm Interp Factor V Activity POC ABG pH POC ABG pCO2 POC ABG pO2 ABG pO2 ABG HCO3 ABG Base Excess ABG Hemoglobin Oxyhemoglobin Sodium Potassium Chloride Carbon Dioxide BUN 76 H Creatinine 1.5 H Glucose 109 H POC Glucose 129 H 129 H Lactic Acid Calcium Phosphorus Magnesium Direct Bilirubin AST ALT Alkaline Phosphatase 536 H Lactate Dehydrogenase Troponin T C-Reactive Protein Total Protein Albumin 1.5 L Prealbumin Triglycerides Cholesterol LDL Cholesterol Direct HDL Cholesterol PTH Intact Urine pH Urine WBC (Auto) Urine Creatinine Urine Total Protein Fluid Total Protein Vancomycin Trough Rheumatoid Factor Complement C4 Miscellaneous Test Crossmatch 01/01/17 01/01/17 01/01/17 12:25 17:01 23:32 WBC RBC Hgb Hct MCV MCH MCHC RDW Plt Count Lymph % (Auto) [place] % (Auto) Lymph # [place] # Baso # Seg Neutrophils % Seg Neuts % (Manual) Lymphocytes % (Manual) Monocytes % (Manual) Eosinophils % (Manual) Basophils % (Manual) Nucleated RBC % Seg Neutrophils # Seg Neutrophils # Man Lymphocytes # (Manual) Monocytes # (Manual) Eosinophils # (Manual) Basophils # (Manual) PT INR Fibrinogen dRVVT Confirm Interp Factor V Activity POC ABG pH POC ABG pCO2 POC ABG pO2 ABG pO2 ABG HCO3 ABG Base Excess ABG Hemoglobin Oxyhemoglobin Sodium Potassium Chloride Carbon Dioxide BUN Creatinine Glucose POC Glucose 140 H 142 H 112 H Lactic Acid Calcium Phosphorus Magnesium Direct Bilirubin AST ALT Alkaline Phosphatase Lactate Dehydrogenase Troponin T C-Reactive Protein Total Protein Albumin Prealbumin Triglycerides Cholesterol LDL Cholesterol Direct HDL Cholesterol PTH Intact Urine pH Urine WBC (Auto) Urine Creatinine Urine Total Protein Fluid Total Protein Vancomycin Trough Rheumatoid Factor Complement C4 Miscellaneous Test Crossmatch 01/02/17 01/02/17 01/02/17 04:56 06:00 11:37 WBC RBC Hgb Hct MCV MCH MCHC RDW Plt Count Lymph % (Auto) [place] % (Auto) Lymph # [place] # Baso # Seg Neutrophils % Seg Neuts % (Manual) Lymphocytes % (Manual) Monocytes % (Manual) Eosinophils % (Manual) Basophils % (Manual) Nucleated RBC % Seg Neutrophils # Seg Neutrophils # Man Lymphocytes # (Manual) Monocytes # (Manual) Eosinophils # (Manual) Basophils # (Manual) PT INR Fibrinogen dRVVT Confirm Interp Factor V Activity POC ABG pH POC ABG pCO2 POC ABG pO2 ABG pO2 ABG HCO3 ABG Base Excess ABG Hemoglobin Oxyhemoglobin Sodium Potassium Chloride Carbon Dioxide BUN 88 H Creatinine 1.7 H Glucose 113 H POC Glucose 136 H 200 H Lactic Acid Calcium Phosphorus Magnesium Direct Bilirubin AST ALT Alkaline Phosphatase Lactate Dehydrogenase Troponin T C-Reactive Protein Total Protein Albumin Prealbumin Triglycerides Cholesterol LDL Cholesterol Direct HDL Cholesterol PTH Intact Urine pH Urine WBC (Auto) Urine Creatinine Urine Total Protein Fluid Total Protein Vancomycin Trough Rheumatoid Factor Complement C4 Miscellaneous Test Crossmatch 01/02/17 01/02/17 01/03/17 17:42 22:52 04:54 WBC RBC Hgb Hct MCV MCH MCHC RDW Plt Count Lymph % (Auto) [place] % (Auto) Lymph # [place] # Baso # Seg Neutrophils % Seg Neuts % (Manual) Lymphocytes % (Manual) Monocytes % (Manual) Eosinophils % (Manual) Basophils % (Manual) Nucleated RBC % Seg Neutrophils # Seg Neutrophils # Man Lymphocytes # (Manual) Monocytes # (Manual) Eosinophils # (Manual) Basophils # (Manual) PT INR Fibrinogen dRVVT Confirm Interp Factor V Activity POC ABG pH POC ABG pCO2 POC ABG pO2 ABG pO2 ABG HCO3 ABG Base Excess ABG Hemoglobin Oxyhemoglobin Sodium Potassium Chloride Carbon Dioxide BUN Creatinine Glucose POC Glucose 112 H 133 H 111 H Lactic Acid Calcium Phosphorus Magnesium Direct Bilirubin AST ALT Alkaline Phosphatase Lactate Dehydrogenase Troponin T C-Reactive Protein Total Protein Albumin Prealbumin Triglycerides Cholesterol LDL Cholesterol Direct HDL Cholesterol PTH Intact Urine pH Urine WBC (Auto) Urine Creatinine Urine Total Protein Fluid Total Protein Vancomycin Trough Rheumatoid Factor Complement C4 Miscellaneous Test Crossmatch 01/03/17 01/03/17 01/03/17 05:00 05:00 14:02 WBC 11.2 H RBC 2.56 L Hgb 7.2 L Hct 22.3 L MCV MCH MCHC RDW 17.3 H Plt Count Lymph % (Auto) [place] % (Auto) 10.0 H Lymph # [place] # 1.1 H Baso # Seg Neutrophils % 70.5 H Seg Neuts % (Manual) Lymphocytes % (Manual) Monocytes % (Manual) Eosinophils % (Manual) Basophils % (Manual) Nucleated RBC % Seg Neutrophils # 7.9 H Seg Neutrophils # Man Lymphocytes # (Manual) Monocytes # (Manual) Eosinophils # (Manual) Basophils # (Manual) PT INR Fibrinogen dRVVT Confirm Interp Factor V Activity POC ABG pH POC ABG pCO2 POC ABG pO2 ABG pO2 ABG HCO3 ABG Base Excess ABG Hemoglobin Oxyhemoglobin Sodium Potassium Chloride Carbon Dioxide BUN 60 H Creatinine 1.3 H Glucose 110 H POC Glucose 119 H Lactic Acid Calcium Phosphorus Magnesium Direct Bilirubin AST ALT Alkaline Phosphatase Lactate Dehydrogenase Troponin T C-Reactive Protein Total Protein Albumin Prealbumin Triglycerides Cholesterol LDL Cholesterol Direct HDL Cholesterol PTH Intact Urine pH Urine WBC (Auto) Urine Creatinine Urine Total Protein Fluid Total Protein Vancomycin Trough Rheumatoid Factor Complement C4 Miscellaneous Test Crossmatch 01/03/17 01/03/17 01/04/17 18:13 23:40 05:57 WBC RBC Hgb Hct MCV MCH MCHC RDW Plt Count Lymph % (Auto) [place] % (Auto) Lymph # [place] # Baso # Seg Neutrophils % Seg Neuts % (Manual) Lymphocytes % (Manual) Monocytes % (Manual) Eosinophils % (Manual) Basophils % (Manual) Nucleated RBC % Seg Neutrophils # Seg Neutrophils # Man Lymphocytes # (Manual) Monocytes # (Manual) Eosinophils # (Manual) Basophils # (Manual) PT INR Fibrinogen dRVVT Confirm Interp Factor V Activity POC ABG pH POC ABG pCO2 POC ABG pO2 ABG pO2 ABG HCO3 ABG Base Excess ABG Hemoglobin Oxyhemoglobin Sodium Potassium Chloride Carbon Dioxide BUN Creatinine Glucose POC Glucose 107 H 129 H 111 H Lactic Acid Calcium Phosphorus Magnesium Direct Bilirubin AST ALT Alkaline Phosphatase Lactate Dehydrogenase Troponin T C-Reactive Protein Total Protein Albumin Prealbumin Triglycerides Cholesterol LDL Cholesterol Direct HDL Cholesterol PTH Intact Urine pH Urine WBC (Auto) Urine Creatinine Urine Total Protein Fluid Total Protein Vancomycin Trough Rheumatoid Factor Complement C4 Miscellaneous Test Crossmatch 01/04/17 01/04/17 01/04/17 12:46 15:27 17:11 WBC RBC Hgb Hct MCV MCH MCHC RDW Plt Count Lymph % (Auto) [place] % (Auto) Lymph # [place] # Baso # Seg Neutrophils % Seg Neuts % (Manual) Lymphocytes % (Manual) Monocytes % (Manual) Eosinophils % (Manual) Basophils % (Manual) Nucleated RBC % Seg Neutrophils # Seg Neutrophils # Man Lymphocytes # (Manual) Monocytes # (Manual) Eosinophils # (Manual) Basophils # (Manual) PT INR Fibrinogen dRVVT Confirm Interp Factor V Activity POC ABG pH POC ABG pCO2 POC ABG pO2 ABG pO2 ABG HCO3 ABG Base Excess ABG Hemoglobin Oxyhemoglobin Sodium Potassium Chloride Carbon Dioxide BUN 43 H Creatinine Glucose 124 H POC Glucose 159 H 125 H Lactic Acid Calcium 8.0 L Phosphorus 2.10 L Magnesium Direct Bilirubin AST ALT Alkaline Phosphatase Lactate Dehydrogenase Troponin T C-Reactive Protein Total Protein Albumin Prealbumin Triglycerides Cholesterol LDL Cholesterol Direct HDL Cholesterol PTH Intact Urine pH Urine WBC (Auto) Urine Creatinine Urine Total Protein Fluid Total Protein Vancomycin Trough Rheumatoid Factor Complement C4 Miscellaneous Test Crossmatch 01/04/17 01/05/17 01/05/17 23:31 04:00 05:46 WBC RBC Hgb Hct MCV MCH MCHC RDW Plt Count Lymph % (Auto) [place] % (Auto) Lymph # [place] # Baso # Seg Neutrophils % Seg Neuts % (Manual) Lymphocytes % (Manual) Monocytes % (Manual) Eosinophils % (Manual) Basophils % (Manual) Nucleated RBC % Seg Neutrophils # Seg Neutrophils # Man Lymphocytes # (Manual) Monocytes # (Manual) Eosinophils # (Manual) Basophils # (Manual) PT INR Fibrinogen dRVVT Confirm Interp Factor V Activity POC ABG pH POC ABG pCO2 POC ABG pO2 ABG pO2 ABG HCO3 ABG Base Excess ABG Hemoglobin Oxyhemoglobin Sodium Potassium Chloride Carbon Dioxide BUN 52 H Creatinine 1.3 H Glucose 113 H POC Glucose 123 H 118 H Lactic Acid Calcium Phosphorus 2.40 L Magnesium Direct Bilirubin AST ALT Alkaline Phosphatase Lactate Dehydrogenase Troponin T C-Reactive Protein Total Protein Albumin Prealbumin Triglycerides Cholesterol LDL Cholesterol Direct HDL Cholesterol PTH Intact Urine pH Urine WBC (Auto) Urine Creatinine Urine Total Protein Fluid Total Protein Vancomycin Trough Rheumatoid Factor Complement C4 Miscellaneous Test Crossmatch 01/05/17 01/05/17 01/05/17 11:41 17:48 23:27 WBC RBC Hgb Hct MCV MCH MCHC RDW Plt Count Lymph % (Auto) [place] % (Auto) Lymph # [place] # Baso # Seg Neutrophils % Seg Neuts % (Manual) Lymphocytes % (Manual) Monocytes % (Manual) Eosinophils % (Manual) Basophils % (Manual) Nucleated RBC % Seg Neutrophils # Seg Neutrophils # Man Lymphocytes # (Manual) Monocytes # (Manual) Eosinophils # (Manual) Basophils # (Manual) PT INR Fibrinogen dRVVT Confirm Interp Factor V Activity POC ABG pH POC ABG pCO2 POC ABG pO2 ABG pO2 ABG HCO3 ABG Base Excess ABG Hemoglobin Oxyhemoglobin Sodium Potassium Chloride Carbon Dioxide BUN Creatinine Glucose POC Glucose 163 H 142 H 155 H Lactic Acid Calcium Phosphorus Magnesium Direct Bilirubin AST ALT Alkaline Phosphatase Lactate Dehydrogenase Troponin T C-Reactive Protein Total Protein Albumin Prealbumin Triglycerides Cholesterol LDL Cholesterol Direct HDL Cholesterol PTH Intact Urine pH Urine WBC (Auto) Urine Creatinine Urine Total Protein Fluid Total Protein Vancomycin Trough Rheumatoid Factor Complement C4 Miscellaneous Test Crossmatch 01/06/17 01/06/17 01/06/17 05:20 07:35 11:18 WBC RBC Hgb Hct MCV MCH MCHC RDW Plt Count Lymph % (Auto) [place] % (Auto) Lymph # [place] # Baso # Seg Neutrophils % Seg Neuts % (Manual) Lymphocytes % (Manual) Monocytes % (Manual) Eosinophils % (Manual) Basophils % (Manual) Nucleated RBC % Seg Neutrophils # Seg Neutrophils # Man Lymphocytes # (Manual) Monocytes # (Manual) Eosinophils # (Manual) Basophils # (Manual) PT INR Fibrinogen dRVVT Confirm Interp Factor V Activity POC ABG pH POC ABG pCO2 POC ABG pO2 ABG pO2 ABG HCO3 ABG Base Excess ABG Hemoglobin Oxyhemoglobin Sodium Potassium Chloride Carbon Dioxide BUN 74 H Creatinine 1.6 H Glucose 135 H POC Glucose 108 H 149 H Lactic Acid Calcium Phosphorus Magnesium Direct Bilirubin AST ALT Alkaline Phosphatase Lactate Dehydrogenase Troponin T C-Reactive Protein Total Protein Albumin Prealbumin Triglycerides Cholesterol LDL Cholesterol Direct HDL Cholesterol PTH Intact Urine pH Urine WBC (Auto) Urine Creatinine Urine Total Protein Fluid Total Protein Vancomycin Trough Rheumatoid Factor Complement C4 Miscellaneous Test Crossmatch 01/06/17 01/07/17 01/07/17 17:17 00:23 05:31 WBC RBC Hgb Hct MCV MCH MCHC RDW Plt Count Lymph % (Auto) [place] % (Auto) Lymph # [place] # Baso # Seg Neutrophils % Seg Neuts % (Manual) Lymphocytes % (Manual) Monocytes % (Manual) Eosinophils % (Manual) Basophils % (Manual) Nucleated RBC % Seg Neutrophils # Seg Neutrophils # Man Lymphocytes # (Manual) Monocytes # (Manual) Eosinophils # (Manual) Basophils # (Manual) PT INR Fibrinogen dRVVT Confirm Interp Factor V Activity POC ABG pH POC ABG pCO2 POC ABG pO2 ABG pO2 ABG HCO3 ABG Base Excess ABG Hemoglobin Oxyhemoglobin Sodium Potassium Chloride Carbon Dioxide BUN Creatinine Glucose POC Glucose 146 H 165 H 153 H Lactic Acid Calcium Phosphorus Magnesium Direct Bilirubin AST ALT Alkaline Phosphatase Lactate Dehydrogenase Troponin T C-Reactive Protein Total Protein Albumin Prealbumin Triglycerides Cholesterol LDL Cholesterol Direct HDL Cholesterol PTH Intact Urine pH Urine WBC (Auto) Urine Creatinine Urine Total Protein Fluid Total Protein Vancomycin Trough Rheumatoid Factor Complement C4 Miscellaneous Test Crossmatch 01/07/17 01/07/17 01/07/17 06:00 11:39 17:11 WBC RBC Hgb Hct MCV MCH MCHC RDW Plt Count Lymph % (Auto) [place] % (Auto) Lymph # [place] # Baso # Seg Neutrophils % Seg Neuts % (Manual) Lymphocytes % (Manual) Monocytes % (Manual) Eosinophils % (Manual) Basophils % (Manual) Nucleated RBC % Seg Neutrophils # Seg Neutrophils # Man Lymphocytes # (Manual) Monocytes # (Manual) Eosinophils # (Manual) Basophils # (Manual) PT INR Fibrinogen dRVVT Confirm Interp Factor V Activity POC ABG pH POC ABG pCO2 POC ABG pO2 ABG pO2 ABG HCO3 ABG Base Excess ABG Hemoglobin Oxyhemoglobin Sodium Potassium Chloride Carbon Dioxide BUN 42 H Creatinine Glucose 175 H POC Glucose 163 H 163 H Lactic Acid Calcium Phosphorus 2.40 L D Magnesium Direct Bilirubin AST ALT Alkaline Phosphatase Lactate Dehydrogenase Troponin T C-Reactive Protein Total Protein Albumin Prealbumin Triglycerides Cholesterol LDL Cholesterol Direct HDL Cholesterol PTH Intact Urine pH Urine WBC (Auto) Urine Creatinine Urine Total Protein Fluid Total Protein Vancomycin Trough Rheumatoid Factor Complement C4 Miscellaneous Test Crossmatch 01/07/17 01/08/17 01/08/17 23:40 05:00 05:00 WBC 27.4 H RBC 2.27 L Hgb 6.1 L Hct 20.4 L MCV MCH 27 L MCHC RDW 17.8 H Plt Count Lymph % (Auto) [place] % (Auto) Lymph # [place] # Baso # Seg Neutrophils % Seg Neuts % (Manual) Lymphocytes % (Manual) Monocytes % (Manual) Eosinophils % (Manual) Basophils % (Manual) Nucleated RBC % Seg Neutrophils # Seg Neutrophils # Man Lymphocytes # (Manual) Monocytes # (Manual) Eosinophils # (Manual) Basophils # (Manual) PT INR Fibrinogen dRVVT Confirm Interp Factor V Activity POC ABG pH POC ABG pCO2 POC ABG pO2 ABG pO2 ABG HCO3 ABG Base Excess ABG Hemoglobin Oxyhemoglobin Sodium Potassium Chloride Carbon Dioxide 16 L D BUN 62 H Creatinine 1.6 H D Glucose 103 H POC Glucose 135 H Lactic Acid Calcium Phosphorus Magnesium Direct Bilirubin AST ALT Alkaline Phosphatase Lactate Dehydrogenase Troponin T C-Reactive Protein Total Protein Albumin Prealbumin Triglycerides Cholesterol LDL Cholesterol Direct HDL Cholesterol PTH Intact Urine pH Urine WBC (Auto) Urine Creatinine Urine Total Protein Fluid Total Protein Vancomycin Trough Rheumatoid Factor Complement C4 Miscellaneous Test Crossmatch 01/08/17 01/08/17 01/08/17 05:25 10:37 10:37 WBC RBC Hgb Hct MCV MCH MCHC RDW Plt Count Lymph % (Auto) [place] % (Auto) Lymph # [place] # Baso # Seg Neutrophils % Seg Neuts % (Manual) Lymphocytes % (Manual) Monocytes % (Manual) Eosinophils % (Manual) Basophils % (Manual) Nucleated RBC % Seg Neutrophils # Seg Neutrophils # Man Lymphocytes # (Manual) Monocytes # (Manual) Eosinophils # (Manual) Basophils # (Manual) PT INR Fibrinogen dRVVT Confirm Interp Factor V Activity POC ABG pH POC ABG pCO2 POC ABG pO2 ABG pO2 ABG HCO3 ABG Base Excess ABG Hemoglobin Oxyhemoglobin Sodium Potassium Chloride Carbon Dioxide BUN Creatinine Glucose POC Glucose 106 H Lactic Acid Calcium Phosphorus Magnesium Direct Bilirubin AST ALT Alkaline Phosphatase Lactate Dehydrogenase Troponin T C-Reactive Protein 24.40 H Total Protein Albumin Prealbumin Triglycerides Cholesterol LDL Cholesterol Direct HDL Cholesterol PTH Intact Urine pH Urine WBC (Auto) Urine Creatinine Urine Total Protein Fluid Total Protein Vancomycin Trough Rheumatoid Factor Complement C4 Miscellaneous Test Crossmatch See Detail 01/08/17 01/08/17 01/08/17 10:37 11:33 15:15 WBC RBC Hgb Hct MCV MCH MCHC RDW Plt Count Lymph % (Auto) [place] % (Auto) Lymph # [place] # Baso # Seg Neutrophils % Seg Neuts % (Manual) Lymphocytes % (Manual) Monocytes % (Manual) Eosinophils % (Manual) Basophils % (Manual) Nucleated RBC % Seg Neutrophils # Seg Neutrophils # Man Lymphocytes # (Manual) Monocytes # (Manual) Eosinophils # (Manual) Basophils # (Manual) PT INR Fibrinogen dRVVT Confirm Interp Factor V Activity POC ABG pH POC ABG pCO2 POC ABG pO2 ABG pO2 ABG HCO3 ABG Base Excess ABG Hemoglobin Oxyhemoglobin Sodium Potassium Chloride Carbon Dioxide BUN Creatinine Glucose POC Glucose 157 H Lactic Acid 9.70 H* 9.10 H* Calcium Phosphorus Magnesium Direct Bilirubin AST ALT Alkaline Phosphatase Lactate Dehydrogenase Troponin T C-Reactive Protein Total Protein Albumin Prealbumin Triglycerides Cholesterol LDL Cholesterol Direct HDL Cholesterol PTH Intact Urine pH Urine WBC (Auto) Urine Creatinine Urine Total Protein Fluid Total Protein Vancomycin Trough Rheumatoid Factor Complement C4 Miscellaneous Test Crossmatch 01/08/17 01/08/17 01/09/17 17:19 23:12 04:40 WBC RBC Hgb Hct MCV MCH MCHC RDW Plt Count Lymph % (Auto) [place] % (Auto) Lymph # [place] # Baso # Seg Neutrophils % Seg Neuts % (Manual) Lymphocytes % (Manual) Monocytes % (Manual) Eosinophils % (Manual) Basophils % (Manual) Nucleated RBC % Seg Neutrophils # Seg Neutrophils # Man Lymphocytes # (Manual) Monocytes # (Manual) Eosinophils # (Manual) Basophils # (Manual) PT INR Fibrinogen dRVVT Confirm Interp Factor V Activity POC ABG pH POC ABG pCO2 POC ABG pO2 ABG pO2 ABG HCO3 ABG Base Excess ABG Hemoglobin Oxyhemoglobin Sodium 147 H Potassium Chloride Carbon Dioxide BUN 82 H Creatinine 1.8 H Glucose 137 H POC Glucose 164 H 157 H Lactic Acid Calcium Phosphorus Magnesium Direct Bilirubin AST ALT Alkaline Phosphatase Lactate Dehydrogenase Troponin T C-Reactive Protein Total Protein Albumin Prealbumin Triglycerides Cholesterol LDL Cholesterol Direct HDL Cholesterol PTH Intact Urine pH Urine WBC (Auto) Urine Creatinine Urine Total Protein Fluid Total Protein Vancomycin Trough Rheumatoid Factor Complement C4 Miscellaneous Test Crossmatch 01/09/17 01/09/17 01/09/17 05:42 08:22 10:57 WBC RBC Hgb Hct MCV MCH MCHC RDW Plt Count Lymph % (Auto) [place] % (Auto) Lymph # [place] # Baso # Seg Neutrophils % Seg Neuts % (Manual) Lymphocytes % (Manual) Monocytes % (Manual) Eosinophils % (Manual) Basophils % (Manual) Nucleated RBC % Seg Neutrophils # Seg Neutrophils # Man Lymphocytes # (Manual) Monocytes # (Manual) Eosinophils # (Manual) Basophils # (Manual) PT INR Fibrinogen dRVVT Confirm Interp Factor V Activity POC ABG pH POC ABG pCO2 POC ABG pO2 ABG pO2 ABG HCO3 ABG Base Excess ABG Hemoglobin Oxyhemoglobin Sodium Potassium Chloride Carbon Dioxide BUN Creatinine Glucose POC Glucose 156 H 122 H Lactic Acid 2.30 H* Calcium Phosphorus Magnesium Direct Bilirubin AST ALT Alkaline Phosphatase Lactate Dehydrogenase Troponin T C-Reactive Protein Total Protein Albumin Prealbumin Triglycerides Cholesterol LDL Cholesterol Direct HDL Cholesterol PTH Intact Urine pH Urine WBC (Auto) Urine Creatinine Urine Total Protein Fluid Total Protein Vancomycin Trough Rheumatoid Factor Complement C4 Miscellaneous Test Crossmatch 01/09/17 01/09/17 01/09/17 13:30 17:14 18:45 WBC RBC Hgb Hct MCV MCH MCHC RDW Plt Count Lymph % (Auto) [place] % (Auto) Lymph # [place] # Baso # Seg Neutrophils % Seg Neuts % (Manual) Lymphocytes % (Manual) Monocytes % (Manual) Eosinophils % (Manual) Basophils % (Manual) Nucleated RBC % Seg Neutrophils # Seg Neutrophils # Man Lymphocytes # (Manual) Monocytes # (Manual) Eosinophils # (Manual) Basophils # (Manual) PT INR Fibrinogen dRVVT Confirm Interp Factor V Activity POC ABG pH POC ABG pCO2 POC ABG pO2 ABG pO2 ABG HCO3 ABG Base Excess ABG Hemoglobin Oxyhemoglobin Sodium Potassium Chloride Carbon Dioxide BUN Creatinine Glucose POC Glucose 127 H Lactic Acid Calcium Phosphorus Magnesium Direct Bilirubin AST ALT Alkaline Phosphatase Lactate Dehydrogenase Troponin T C-Reactive Protein 24.70 H Total Protein Albumin Prealbumin Triglycerides Cholesterol LDL Cholesterol Direct HDL Cholesterol PTH Intact Urine pH Urine WBC (Auto) Urine Creatinine Urine Total Protein Fluid Total Protein Vancomycin Trough Rheumatoid Factor Complement C4 Miscellaneous Test Flexitest 1 H Crossmatch 01/10/17 01/10/17 01/10/17 01:21 04:00 04:00 WBC 18.1 H RBC 3.22 L Hgb 8.8 L Hct 27.0 L D MCV MCH 27 L MCHC RDW 17.0 H Plt Count Lymph % (Auto) [place] % (Auto) Lymph # [place] # Baso # Seg Neutrophils % Seg Neuts % (Manual) Lymphocytes % (Manual) Monocytes % (Manual) Eosinophils % (Manual) Basophils % (Manual) Nucleated RBC % Seg Neutrophils # Seg Neutrophils # Man Lymphocytes # (Manual) Monocytes # (Manual) Eosinophils # (Manual) Basophils # (Manual) PT INR Fibrinogen dRVVT Confirm Interp Factor V Activity POC ABG pH POC ABG pCO2 POC ABG pO2 ABG pO2 ABG HCO3 ABG Base Excess ABG Hemoglobin Oxyhemoglobin Sodium Potassium Chloride Carbon Dioxide BUN 59 H Creatinine 1.3 H Glucose 122 H POC Glucose 160 H Lactic Acid Calcium Phosphorus Magnesium Direct Bilirubin AST ALT Alkaline Phosphatase Lactate Dehydrogenase Troponin T C-Reactive Protein Total Protein Albumin Prealbumin Triglycerides Cholesterol LDL Cholesterol Direct HDL Cholesterol PTH Intact Urine pH Urine WBC (Auto) Urine Creatinine Urine Total Protein Fluid Total Protein Vancomycin Trough Rheumatoid Factor Complement C4 Miscellaneous Test Crossmatch 01/10/17 01/10/17 01/10/17 05:36 12:14 17:55 WBC RBC Hgb Hct MCV MCH MCHC RDW Plt Count Lymph % (Auto) [place] % (Auto) Lymph # [place] # Baso # Seg Neutrophils % Seg Neuts % (Manual) Lymphocytes % (Manual) Monocytes % (Manual) Eosinophils % (Manual) Basophils % (Manual) Nucleated RBC % Seg Neutrophils # Seg Neutrophils # Man Lymphocytes # (Manual) Monocytes # (Manual) Eosinophils # (Manual) Basophils # (Manual) PT INR Fibrinogen dRVVT Confirm Interp Factor V Activity POC ABG pH POC ABG pCO2 POC ABG pO2 ABG pO2 ABG HCO3 ABG Base Excess ABG Hemoglobin Oxyhemoglobin Sodium Potassium Chloride Carbon Dioxide BUN Creatinine Glucose POC Glucose 163 H 120 H 144 H Lactic Acid Calcium Phosphorus Magnesium Direct Bilirubin AST ALT Alkaline Phosphatase Lactate Dehydrogenase Troponin T C-Reactive Protein Total Protein Albumin Prealbumin Triglycerides Cholesterol LDL Cholesterol Direct HDL Cholesterol PTH Intact Urine pH Urine WBC (Auto) Urine Creatinine Urine Total Protein Fluid Total Protein Vancomycin Trough Rheumatoid Factor Complement C4 Miscellaneous Test Crossmatch 01/11/17 01/11/17 01/11/17 00:09 04:00 04:00 WBC 15.8 H RBC 3.04 L Hgb 8.2 L Hct 25.5 L MCV MCH 27 L MCHC RDW 17.3 H Plt Count Lymph % (Auto) [place] % (Auto) Lymph # [place] # Baso # Seg Neutrophils % Seg Neuts % (Manual) Lymphocytes % (Manual) Monocytes % (Manual) Eosinophils % (Manual) Basophils % (Manual) Nucleated RBC % Seg Neutrophils # Seg Neutrophils # Man Lymphocytes # (Manual) Monocytes # (Manual) Eosinophils # (Manual) Basophils # (Manual) PT INR Fibrinogen dRVVT Confirm Interp Factor V Activity POC ABG pH POC ABG pCO2 POC ABG pO2 ABG pO2 ABG HCO3 ABG Base Excess ABG Hemoglobin Oxyhemoglobin Sodium Potassium Chloride Carbon Dioxide BUN 78 H Creatinine 1.6 H Glucose 109 H POC Glucose 122 H Lactic Acid Calcium Phosphorus Magnesium Direct Bilirubin AST ALT Alkaline Phosphatase Lactate Dehydrogenase Troponin T C-Reactive Protein Total Protein Albumin Prealbumin Triglycerides Cholesterol LDL Cholesterol Direct HDL Cholesterol PTH Intact Urine pH Urine WBC (Auto) Urine Creatinine Urine Total Protein Fluid Total Protein Vancomycin Trough Rheumatoid Factor Complement C4 Miscellaneous Test Crossmatch 1101/11/17 01/11/17 12:46 18:23 23:42 WBC RBC Hgb Hct MCV MCH MCHC RDW Plt Count Lymph % (Auto) [place] % (Auto) Lymph # [place] # Baso # Seg Neutrophils % Seg Neuts % (Manual) Lymphocytes % (Manual) Monocytes % (Manual) Eosinophils % (Manual) Basophils % (Manual) Nucleated RBC % Seg Neutrophils # Seg Neutrophils # Man Lymphocytes # (Manual) Monocytes # (Manual) Eosinophils # (Manual) Basophils # (Manual) PT INR Fibrinogen dRVVT Confirm Interp Factor V Activity POC ABG pH POC ABG pCO2 POC ABG pO2 ABG pO2 ABG HCO3 ABG Base Excess ABG Hemoglobin Oxyhemoglobin Sodium Potassium Chloride Carbon Dioxide BUN Creatinine Glucose POC Glucose 148 H 125 H 124 H Lactic Acid Calcium Phosphorus Magnesium Direct Bilirubin AST ALT Alkaline Phosphatase Lactate Dehydrogenase Troponin T C-Reactive Protein Total Protein Albumin Prealbumin Triglycerides Cholesterol LDL Cholesterol Direct HDL Cholesterol PTH Intact Urine pH Urine WBC (Auto) Urine Creatinine Urine Total Protein Fluid Total Protein Vancomycin Trough Rheumatoid Factor Complement C4 Miscellaneous Test Crossmatch 01/12/17 01/12/17 01/12/17 04:30 04:30 05:47 WBC 15.8 H RBC 3.31 L Hgb 8.9 L Hct 27.9 L MCV MCH 27 L MCHC RDW 17.4 H Plt Count Lymph % (Auto) [place] % (Auto) Lymph # [place] # Baso # Seg Neutrophils % Seg Neuts % (Manual) Lymphocytes % (Manual) Monocytes % (Manual) Eosinophils % (Manual) Basophils % (Manual) Nucleated RBC % Seg Neutrophils # Seg Neutrophils # Man Lymphocytes # (Manual) Monocytes # (Manual) Eosinophils # (Manual) Basophils # (Manual) PT INR Fibrinogen dRVVT Confirm Interp Factor V Activity POC ABG pH POC ABG pCO2 POC ABG pO2 ABG pO2 ABG HCO3 ABG Base Excess ABG Hemoglobin Oxyhemoglobin Sodium Potassium Chloride Carbon Dioxide BUN 57 H Creatinine Glucose 121 H POC Glucose 110 H Lactic Acid Calcium Phosphorus 2.10 L Magnesium Direct Bilirubin AST ALT Alkaline Phosphatase Lactate Dehydrogenase Troponin T C-Reactive Protein Total Protein Albumin Prealbumin Triglycerides Cholesterol LDL Cholesterol Direct HDL Cholesterol PTH Intact Urine pH Urine WBC (Auto) Urine Creatinine Urine Total Protein Fluid Total Protein Vancomycin Trough Rheumatoid Factor Complement C4 Miscellaneous Test Crossmatch 01/12/17 01/12/17 01/12/17 11:35 17:45 23:14 WBC RBC Hgb Hct MCV MCH MCHC RDW Plt Count Lymph % (Auto) [place] % (Auto) Lymph # [place] # Baso # Seg Neutrophils % Seg Neuts % (Manual) Lymphocytes % (Manual) Monocytes % (Manual) Eosinophils % (Manual) Basophils % (Manual) Nucleated RBC % Seg Neutrophils # Seg Neutrophils # Man Lymphocytes # (Manual) Monocytes # (Manual) Eosinophils # (Manual) Basophils # (Manual) PT INR Fibrinogen dRVVT Confirm Interp Factor V Activity POC ABG pH POC ABG pCO2 POC ABG pO2 ABG pO2 ABG HCO3 ABG Base Excess ABG Hemoglobin Oxyhemoglobin Sodium Potassium Chloride Carbon Dioxide BUN Creatinine Glucose POC Glucose 146 H 117 H 123 H Lactic Acid Calcium Phosphorus Magnesium Direct Bilirubin AST ALT Alkaline Phosphatase Lactate Dehydrogenase Troponin T C-Reactive Protein Total Protein Albumin Prealbumin Triglycerides Cholesterol LDL Cholesterol Direct HDL Cholesterol PTH Intact Urine pH Urine WBC (Auto) Urine Creatinine Urine Total Protein Fluid Total Protein Vancomycin Trough Rheumatoid Factor Complement C4 Miscellaneous Test Crossmatch 01/13/17 01/13/17 01/13/17 05:32 06:00 12:10 WBC RBC Hgb Hct MCV MCH MCHC RDW Plt Count Lymph % (Auto) [place] % (Auto) Lymph # [place] # Baso # Seg Neutrophils % Seg Neuts % (Manual) Lymphocytes % (Manual) Monocytes % (Manual) Eosinophils % (Manual) Basophils % (Manual) Nucleated RBC % Seg Neutrophils # Seg Neutrophils # Man Lymphocytes # (Manual) Monocytes # (Manual) Eosinophils # (Manual) Basophils # (Manual) PT INR Fibrinogen dRVVT Confirm Interp Factor V Activity POC ABG pH POC ABG pCO2 POC ABG pO2 ABG pO2 ABG HCO3 ABG Base Excess ABG Hemoglobin Oxyhemoglobin Sodium Potassium Chloride Carbon Dioxide BUN 80 H Creatinine 1.4 H Glucose 106 H POC Glucose 106 H Lactic Acid Calcium Phosphorus Magnesium Direct Bilirubin AST ALT Alkaline Phosphatase Lactate Dehydrogenase Troponin T C-Reactive Protein Total Protein Albumin Prealbumin Triglycerides Cholesterol LDL Cholesterol Direct HDL Cholesterol PTH Intact Urine pH Urine WBC (Auto) Urine Creatinine Urine Total Protein Fluid Total Protein 3.0 L Vancomycin Trough Rheumatoid Factor Complement C4 Miscellaneous Test Crossmatch 01/13/17 01/13/17 01/13/17 12:17 15:50 17:30 WBC RBC Hgb Hct MCV MCH MCHC RDW Plt Count Lymph % (Auto) [place] % (Auto) Lymph # [place] # Baso # Seg Neutrophils % Seg Neuts % (Manual) Lymphocytes % (Manual) Monocytes % (Manual) Eosinophils % (Manual) Basophils % (Manual) Nucleated RBC % Seg Neutrophils # Seg Neutrophils # Man Lymphocytes # (Manual) Monocytes # (Manual) Eosinophils # (Manual) Basophils # (Manual) PT 15.4 H INR 1.16 H Fibrinogen dRVVT Confirm Interp Factor V Activity POC ABG pH POC ABG pCO2 POC ABG pO2 ABG pO2 ABG HCO3 ABG Base Excess ABG Hemoglobin Oxyhemoglobin Sodium Potassium Chloride Carbon Dioxide BUN Creatinine Glucose POC Glucose 168 H 110 H Lactic Acid Calcium Phosphorus Magnesium Direct Bilirubin AST ALT Alkaline Phosphatase Lactate Dehydrogenase Troponin T C-Reactive Protein Total Protein Albumin Prealbumin Triglycerides Cholesterol LDL Cholesterol Direct HDL Cholesterol PTH Intact Urine pH Urine WBC (Auto) Urine Creatinine Urine Total Protein Fluid Total Protein Vancomycin Trough Rheumatoid Factor Complement C4 Miscellaneous Test Crossmatch 01/13/17 01/14/17 01/14/17 23:42 05:24 05:30 WBC RBC Hgb Hct MCV MCH MCHC RDW Plt Count Lymph % (Auto) [place] % (Auto) Lymph # [place] # Baso # Seg Neutrophils % Seg Neuts % (Manual) Lymphocytes % (Manual) Monocytes % (Manual) Eosinophils % (Manual) Basophils % (Manual) Nucleated RBC % Seg Neutrophils # Seg Neutrophils # Man Lymphocytes # (Manual) Monocytes # (Manual) Eosinophils # (Manual) Basophils # (Manual) PT INR Fibrinogen dRVVT Confirm Interp Factor V Activity POC ABG pH POC ABG pCO2 POC ABG pO2 ABG pO2 ABG HCO3 ABG Base Excess ABG Hemoglobin Oxyhemoglobin Sodium Potassium Chloride Carbon Dioxide BUN 58 H Creatinine Glucose 114 H POC Glucose 155 H 121 H Lactic Acid Calcium Phosphorus Magnesium Direct Bilirubin AST ALT Alkaline Phosphatase Lactate Dehydrogenase Troponin T C-Reactive Protein Total Protein Albumin Prealbumin Triglycerides Cholesterol LDL Cholesterol Direct HDL Cholesterol PTH Intact Urine pH Urine WBC (Auto) Urine Creatinine Urine Total Protein Fluid Total Protein Vancomycin Trough Rheumatoid Factor Complement C4 Miscellaneous Test Crossmatch 01/14/17 01/14/17 01/15/17 12:48 17:36 00:15 WBC RBC Hgb Hct MCV MCH MCHC RDW Plt Count Lymph % (Auto) [place] % (Auto) Lymph # [place] # Baso # Seg Neutrophils % Seg Neuts % (Manual) Lymphocytes % (Manual) Monocytes % (Manual) Eosinophils % (Manual) Basophils % (Manual) Nucleated RBC % Seg Neutrophils # Seg Neutrophils # Man Lymphocytes # (Manual) Monocytes # (Manual) Eosinophils # (Manual) Basophils # (Manual) PT INR Fibrinogen dRVVT Confirm Interp Factor V Activity POC ABG pH POC ABG pCO2 POC ABG pO2 ABG pO2 ABG HCO3 ABG Base Excess ABG Hemoglobin Oxyhemoglobin Sodium Potassium Chloride Carbon Dioxide BUN Creatinine Glucose POC Glucose 130 H 135 H 132 H Lactic Acid Calcium Phosphorus Magnesium Direct Bilirubin AST ALT Alkaline Phosphatase Lactate Dehydrogenase Troponin T C-Reactive Protein Total Protein Albumin Prealbumin Triglycerides Cholesterol LDL Cholesterol Direct HDL Cholesterol PTH Intact Urine pH Urine WBC (Auto) Urine Creatinine Urine Total Protein Fluid Total Protein Vancomycin Trough Rheumatoid Factor Complement C4 Miscellaneous Test Crossmatch 01/15/17 01/15/17 01/15/17 05:01 11:55 12:45 WBC 16.2 H RBC 3.00 L Hgb 8.1 L Hct 25.4 L MCV MCH 27 L MCHC RDW 17.6 H Plt Count Lymph % (Auto) 11.7 L [place] % (Auto) 7.8 H Lymph # [place] # 1.3 H Baso # Seg Neutrophils % 80.1 H Seg Neuts % (Manual) Lymphocytes % (Manual) Monocytes % (Manual) Eosinophils % (Manual) Basophils % (Manual) Nucleated RBC % Seg Neutrophils # 13.0 H Seg Neutrophils # Man Lymphocytes # (Manual) Monocytes # (Manual) Eosinophils # (Manual) Basophils # (Manual) PT INR Fibrinogen dRVVT Confirm Interp Factor V Activity POC ABG pH POC ABG pCO2 POC ABG pO2 ABG pO2 ABG HCO3 ABG Base Excess ABG Hemoglobin Oxyhemoglobin Sodium Potassium Chloride Carbon Dioxide BUN Creatinine Glucose POC Glucose 126 H 125 H Lactic Acid Calcium Phosphorus Magnesium Direct Bilirubin AST ALT Alkaline Phosphatase Lactate Dehydrogenase Troponin T C-Reactive Protein Total Protein Albumin Prealbumin Triglycerides Cholesterol LDL Cholesterol Direct HDL Cholesterol PTH Intact Urine pH Urine WBC (Auto) Urine Creatinine Urine Total Protein Fluid Total Protein Vancomycin Trough Rheumatoid Factor Complement C4 Miscellaneous Test Crossmatch 01/15/17 01/15/17 01/15/17 12:45 17:31 23:39 WBC RBC Hgb Hct MCV MCH MCHC RDW Plt Count Lymph % (Auto) [place] % (Auto) Lymph # [place] # Baso # Seg Neutrophils % Seg Neuts % (Manual) Lymphocytes % (Manual) Monocytes % (Manual) Eosinophils % (Manual) Basophils % (Manual) Nucleated RBC % Seg Neutrophils # Seg Neutrophils # Man Lymphocytes # (Manual) Monocytes # (Manual) Eosinophils # (Manual) Basophils # (Manual) PT INR Fibrinogen dRVVT Confirm Interp Factor V Activity POC ABG pH POC ABG pCO2 POC ABG pO2 ABG pO2 ABG HCO3 ABG Base Excess ABG Hemoglobin Oxyhemoglobin Sodium 136 L Potassium Chloride Carbon Dioxide BUN 87 H Creatinine 1.7 H Glucose 108 H POC Glucose 129 H 112 H Lactic Acid Calcium Phosphorus Magnesium Direct Bilirubin AST ALT Alkaline Phosphatase Lactate Dehydrogenase Troponin T C-Reactive Protein Total Protein Albumin Prealbumin Triglycerides Cholesterol LDL Cholesterol Direct HDL Cholesterol PTH Intact Urine pH Urine WBC (Auto) Urine Creatinine Urine Total Protein Fluid Total Protein Vancomycin Trough Rheumatoid Factor Complement C4 Miscellaneous Test Crossmatch 01/16/17 01/16/17 01/16/17 05:23 11:42 12:32 WBC RBC Hgb Hct MCV MCH MCHC RDW Plt Count Lymph % (Auto) [place] % (Auto) Lymph # [place] # Baso # Seg Neutrophils % Seg Neuts % (Manual) Lymphocytes % (Manual) Monocytes % (Manual) Eosinophils % (Manual) Basophils % (Manual) Nucleated RBC % Seg Neutrophils # Seg Neutrophils # Man Lymphocytes # (Manual) Monocytes # (Manual) Eosinophils # (Manual) Basophils # (Manual) PT INR Fibrinogen dRVVT Confirm Interp Factor V Activity POC ABG pH 7.499 H POC ABG pCO2 30.9 L POC ABG pO2 51 L ABG pO2 ABG HCO3 ABG Base Excess ABG Hemoglobin Oxyhemoglobin Sodium Potassium Chloride Carbon Dioxide BUN Creatinine Glucose POC Glucose 118 H 133 H Lactic Acid Calcium Phosphorus Magnesium Direct Bilirubin AST ALT Alkaline Phosphatase Lactate Dehydrogenase Troponin T C-Reactive Protein Total Protein Albumin Prealbumin Triglycerides Cholesterol LDL Cholesterol Direct HDL Cholesterol PTH Intact Urine pH Urine WBC (Auto) Urine Creatinine Urine Total Protein Fluid Total Protein Vancomycin Trough Rheumatoid Factor Complement C4 Miscellaneous Test Crossmatch 01/16/17 01/16/17 01/16/17 17:52 23:57 Unknown WBC RBC Hgb Hct MCV MCH MCHC RDW Plt Count Lymph % (Auto) [place] % (Auto) Lymph # [place] # Baso # Seg Neutrophils % Seg Neuts % (Manual) Lymphocytes % (Manual) Monocytes % (Manual) Eosinophils % (Manual) Basophils % (Manual) Nucleated RBC % Seg Neutrophils # Seg Neutrophils # Man Lymphocytes # (Manual) Monocytes # (Manual) Eosinophils # (Manual) Basophils # (Manual) PT INR Fibrinogen dRVVT Confirm Interp Factor V Activity POC ABG pH POC ABG pCO2 POC ABG pO2 ABG pO2 ABG HCO3 ABG Base Excess ABG Hemoglobin Oxyhemoglobin Sodium 135 L Potassium Chloride Carbon Dioxide BUN 101 H Creatinine 1.8 H Glucose 117 H POC Glucose 130 H 143 H Lactic Acid Calcium Phosphorus 5.80 H Magnesium Direct Bilirubin AST ALT Alkaline Phosphatase Lactate Dehydrogenase Troponin T C-Reactive Protein Total Protein Albumin Prealbumin Triglycerides Cholesterol LDL Cholesterol Direct HDL Cholesterol PTH Intact Urine pH Urine WBC (Auto) Urine Creatinine Urine Total Protein Fluid Total Protein Vancomycin Trough Rheumatoid Factor Complement C4 Miscellaneous Test Crossmatch 01/17/17 01/17/17 01/17/17 05:30 05:46 11:49 WBC RBC Hgb Hct MCV MCH MCHC RDW Plt Count Lymph % (Auto) [place] % (Auto) Lymph # [place] # Baso # Seg Neutrophils % Seg Neuts % (Manual) Lymphocytes % (Manual) Monocytes % (Manual) Eosinophils % (Manual) Basophils % (Manual) Nucleated RBC % Seg Neutrophils # Seg Neutrophils # Man Lymphocytes # (Manual) Monocytes # (Manual) Eosinophils # (Manual) Basophils # (Manual) PT INR Fibrinogen dRVVT Confirm Interp Factor V Activity POC ABG pH POC ABG pCO2 POC ABG pO2 ABG pO2 ABG HCO3 ABG Base Excess ABG Hemoglobin Oxyhemoglobin Sodium 134 L Potassium Chloride 95.8 L Carbon Dioxide BUN 66 H Creatinine 1.3 H Glucose 138 H POC Glucose 147 H 124 H Lactic Acid Calcium Phosphorus Magnesium Direct Bilirubin AST ALT Alkaline Phosphatase 254 H Lactate Dehydrogenase Troponin T C-Reactive Protein Total Protein Albumin 1.3 L Prealbumin Triglycerides Cholesterol LDL Cholesterol Direct HDL Cholesterol PTH Intact Urine pH Urine WBC (Auto) Urine Creatinine Urine Total Protein Fluid Total Protein Vancomycin Trough Rheumatoid Factor Complement C4 Miscellaneous Test Crossmatch 01/17/17 01/17/17 01/18/17 17:30 23:41 05:15 WBC RBC Hgb Hct MCV MCH MCHC RDW Plt Count Lymph % (Auto) [place] % (Auto) Lymph # [place] # Baso # Seg Neutrophils % Seg Neuts % (Manual) Lymphocytes % (Manual) Monocytes % (Manual) Eosinophils % (Manual) Basophils % (Manual) Nucleated RBC % Seg Neutrophils # Seg Neutrophils # Man Lymphocytes # (Manual) Monocytes # (Manual) Eosinophils # (Manual) Basophils # (Manual) PT INR Fibrinogen dRVVT Confirm Interp Factor V Activity POC ABG pH POC ABG pCO2 POC ABG pO2 ABG pO2 ABG HCO3 ABG Base Excess ABG Hemoglobin Oxyhemoglobin Sodium Potassium Chloride Carbon Dioxide BUN 89 H Creatinine 1.7 H Glucose 118 H POC Glucose 137 H 119 H Lactic Acid Calcium Phosphorus Magnesium Direct Bilirubin AST ALT Alkaline Phosphatase Lactate Dehydrogenase Troponin T C-Reactive Protein Total Protein Albumin Prealbumin Triglycerides Cholesterol LDL Cholesterol Direct HDL Cholesterol PTH Intact Urine pH Urine WBC (Auto) Urine Creatinine Urine Total Protein Fluid Total Protein Vancomycin Trough Rheumatoid Factor Complement C4 Miscellaneous Test Crossmatch 01/18/17 01/18/17 01/18/17 05:19 12:16 18:11 WBC RBC Hgb Hct MCV MCH MCHC RDW Plt Count Lymph % (Auto) [place] % (Auto) Lymph # [place] # Baso # Seg Neutrophils % Seg Neuts % (Manual) Lymphocytes % (Manual) Monocytes % (Manual) Eosinophils % (Manual) Basophils % (Manual) Nucleated RBC % Seg Neutrophils # Seg Neutrophils # Man Lymphocytes # (Manual) Monocytes # (Manual) Eosinophils # (Manual) Basophils # (Manual) PT INR Fibrinogen dRVVT Confirm Interp Factor V Activity POC ABG pH POC ABG pCO2 POC ABG pO2 ABG pO2 ABG HCO3 ABG Base Excess ABG Hemoglobin Oxyhemoglobin Sodium Potassium Chloride Carbon Dioxide BUN Creatinine Glucose POC Glucose 134 H 188 H 113 H Lactic Acid Calcium Phosphorus Magnesium Direct Bilirubin AST ALT Alkaline Phosphatase Lactate Dehydrogenase Troponin T C-Reactive Protein Total Protein Albumin Prealbumin Triglycerides Cholesterol LDL Cholesterol Direct HDL Cholesterol PTH Intact Urine pH Urine WBC (Auto) Urine Creatinine Urine Total Protein Fluid Total Protein Vancomycin Trough Rheumatoid Factor Complement C4 Miscellaneous Test Crossmatch 01/19/17 01/19/17 01/19/17 00:00 05:30 05:36 WBC RBC Hgb Hct MCV MCH MCHC RDW Plt Count Lymph % (Auto) [place] % (Auto) Lymph # [place] # Baso # Seg Neutrophils % Seg Neuts % (Manual) Lymphocytes % (Manual) Monocytes % (Manual) Eosinophils % (Manual) Basophils % (Manual) Nucleated RBC % Seg Neutrophils # Seg Neutrophils # Man Lymphocytes # (Manual) Monocytes # (Manual) Eosinophils # (Manual) Basophils # (Manual) PT INR Fibrinogen dRVVT Confirm Interp Factor V Activity POC ABG pH POC ABG pCO2 POC ABG pO2 ABG pO2 ABG HCO3 ABG Base Excess ABG Hemoglobin Oxyhemoglobin Sodium Potassium Chloride Carbon Dioxide BUN 70 H Creatinine 1.5 H Glucose 121 H POC Glucose 137 H 155 H Lactic Acid Calcium Phosphorus 2.10 L D Magnesium Direct Bilirubin AST ALT Alkaline Phosphatase Lactate Dehydrogenase Troponin T C-Reactive Protein Total Protein Albumin Prealbumin Triglycerides Cholesterol LDL Cholesterol Direct HDL Cholesterol PTH Intact Urine pH Urine WBC (Auto) Urine Creatinine Urine Total Protein Fluid Total Protein Vancomycin Trough Rheumatoid Factor Complement C4 Miscellaneous Test Crossmatch 01/19/17 01/19/17 01/19/17 11:59 15:32 17:57 WBC RBC Hgb Hct MCV MCH MCHC RDW Plt Count Lymph % (Auto) [place] % (Auto) Lymph # [place] # Baso # Seg Neutrophils % Seg Neuts % (Manual) Lymphocytes % (Manual) Monocytes % (Manual) Eosinophils % (Manual) Basophils % (Manual) Nucleated RBC % Seg Neutrophils # Seg Neutrophils # Man Lymphocytes # (Manual) Monocytes # (Manual) Eosinophils # (Manual) Basophils # (Manual) PT INR Fibrinogen dRVVT Confirm Interp Factor V Activity POC ABG pH POC ABG pCO2 33.1 L POC ABG pO2 76 L ABG pO2 ABG HCO3 ABG Base Excess ABG Hemoglobin Oxyhemoglobin Sodium Potassium Chloride Carbon Dioxide BUN Creatinine Glucose POC Glucose 156 H 129 H Lactic Acid Calcium Phosphorus Magnesium Direct Bilirubin AST ALT Alkaline Phosphatase Lactate Dehydrogenase Troponin T C-Reactive Protein Total Protein Albumin Prealbumin Triglycerides Cholesterol LDL Cholesterol Direct HDL Cholesterol PTH Intact Urine pH Urine WBC (Auto) Urine Creatinine Urine Total Protein Fluid Total Protein Vancomycin Trough Rheumatoid Factor Complement C4 Miscellaneous Test Crossmatch 01/19/17 01/20/17 01/20/17 23:49 04:00 05:21 WBC RBC Hgb Hct MCV MCH MCHC RDW Plt Count Lymph % (Auto) [place] % (Auto) Lymph # [place] # Baso # Seg Neutrophils % Seg Neuts % (Manual) Lymphocytes % (Manual) Monocytes % (Manual) Eosinophils % (Manual) Basophils % (Manual) Nucleated RBC % Seg Neutrophils # Seg Neutrophils # Man Lymphocytes # (Manual) Monocytes # (Manual) Eosinophils # (Manual) Basophils # (Manual) PT INR Fibrinogen dRVVT Confirm Interp Factor V Activity POC ABG pH POC ABG pCO2 POC ABG pO2 ABG pO2 ABG HCO3 ABG Base Excess ABG Hemoglobin Oxyhemoglobin Sodium Potassium Chloride Carbon Dioxide BUN 96 H Creatinine 1.9 H Glucose 106 H POC Glucose 125 H 130 H Lactic Acid Calcium Phosphorus 2.40 L Magnesium Direct Bilirubin AST ALT Alkaline Phosphatase Lactate Dehydrogenase Troponin T C-Reactive Protein Total Protein Albumin Prealbumin Triglycerides Cholesterol LDL Cholesterol Direct HDL Cholesterol PTH Intact Urine pH Urine WBC (Auto) Urine Creatinine Urine Total Protein Fluid Total Protein Vancomycin Trough Rheumatoid Factor Complement C4 Miscellaneous Test Crossmatch 01/20/17 01/20/17 01/20/17 11:58 12:17 17:26 WBC RBC Hgb Hct MCV MCH MCHC RDW Plt Count Lymph % (Auto) [place] % (Auto) Lymph # [place] # Baso # Seg Neutrophils % Seg Neuts % (Manual) Lymphocytes % (Manual) Monocytes % (Manual) Eosinophils % (Manual) Basophils % (Manual) Nucleated RBC % Seg Neutrophils # Seg Neutrophils # Man Lymphocytes # (Manual) Monocytes # (Manual) Eosinophils # (Manual) Basophils # (Manual) PT INR Fibrinogen dRVVT Confirm Interp Factor V Activity POC ABG pH POC ABG pCO2 POC ABG pO2 70 L ABG pO2 ABG HCO3 ABG Base Excess ABG Hemoglobin Oxyhemoglobin Sodium Potassium Chloride Carbon Dioxide BUN Creatinine Glucose POC Glucose 118 H 154 H Lactic Acid Calcium Phosphorus Magnesium Direct Bilirubin AST ALT Alkaline Phosphatase Lactate Dehydrogenase Troponin T C-Reactive Protein Total Protein Albumin Prealbumin Triglycerides Cholesterol LDL Cholesterol Direct HDL Cholesterol PTH Intact Urine pH Urine WBC (Auto) Urine Creatinine Urine Total Protein Fluid Total Protein Vancomycin Trough Rheumatoid Factor Complement C4 Miscellaneous Test Crossmatch 01/21/17 01/21/17 01/21/17 04:00 04:56 11:46 WBC RBC Hgb Hct MCV MCH MCHC RDW Plt Count Lymph % (Auto) [place] % (Auto) Lymph # [place] # Baso # Seg Neutrophils % Seg Neuts % (Manual) Lymphocytes % (Manual) Monocytes % (Manual) Eosinophils % (Manual) Basophils % (Manual) Nucleated RBC % Seg Neutrophils # Seg Neutrophils # Man Lymphocytes # (Manual) Monocytes # (Manual) Eosinophils # (Manual) Basophils # (Manual) PT INR Fibrinogen dRVVT Confirm Interp Factor V Activity POC ABG pH POC ABG pCO2 POC ABG pO2 ABG pO2 ABG HCO3 ABG Base Excess ABG Hemoglobin Oxyhemoglobin Sodium Potassium 3.5 L Chloride 97.4 L Carbon Dioxide BUN 66 H Creatinine 1.4 H Glucose POC Glucose 116 H 106 H Lactic Acid Calcium Phosphorus 2.10 L Magnesium Direct Bilirubin AST ALT Alkaline Phosphatase Lactate Dehydrogenase Troponin T C-Reactive Protein Total Protein Albumin Prealbumin Triglycerides Cholesterol LDL Cholesterol Direct HDL Cholesterol PTH Intact Urine pH Urine WBC (Auto) Urine Creatinine Urine Total Protein Fluid Total Protein Vancomycin Trough Rheumatoid Factor Complement C4 Miscellaneous Test Crossmatch 01/21/17 01/21/17 01/22/17 17:25 23:49 05:35 WBC RBC Hgb Hct MCV MCH MCHC RDW Plt Count Lymph % (Auto) [place] % (Auto) Lymph # [place] # Baso # Seg Neutrophils % Seg Neuts % (Manual) Lymphocytes % (Manual) Monocytes % (Manual) Eosinophils % (Manual) Basophils % (Manual) Nucleated RBC % Seg Neutrophils # Seg Neutrophils # Man Lymphocytes # (Manual) Monocytes # (Manual) Eosinophils # (Manual) Basophils # (Manual) PT INR Fibrinogen dRVVT Confirm Interp Factor V Activity POC ABG pH POC ABG pCO2 POC ABG pO2 ABG pO2 ABG HCO3 ABG Base Excess ABG Hemoglobin Oxyhemoglobin Sodium Potassium Chloride Carbon Dioxide BUN Creatinine Glucose POC Glucose 106 H 133 H 107 H Lactic Acid Calcium Phosphorus Magnesium Direct Bilirubin AST ALT Alkaline Phosphatase Lactate Dehydrogenase Troponin T C-Reactive Protein Total Protein Albumin Prealbumin Triglycerides Cholesterol LDL Cholesterol Direct HDL Cholesterol PTH Intact Urine pH Urine WBC (Auto) Urine Creatinine Urine Total Protein Fluid Total Protein Vancomycin Trough Rheumatoid Factor Complement C4 Miscellaneous Test Crossmatch 01/22/17 01/22/17 01/22/17 07:20 07:20 11:31 WBC RBC 2.75 L Hgb 7.5 L Hct 22.7 L MCV MCH 27 L MCHC RDW 17.5 H Plt Count Lymph % (Auto) [place] % (Auto) Lymph # [place] # Baso # Seg Neutrophils % Seg Neuts % (Manual) Lymphocytes % (Manual) Monocytes % (Manual) Eosinophils % (Manual) Basophils % (Manual) Nucleated RBC % Seg Neutrophils # Seg Neutrophils # Man Lymphocytes # (Manual) Monocytes # (Manual) Eosinophils # (Manual) Basophils # (Manual) PT INR Fibrinogen dRVVT Confirm Interp Factor V Activity POC ABG pH POC ABG pCO2 POC ABG pO2 ABG pO2 ABG HCO3 ABG Base Excess ABG Hemoglobin Oxyhemoglobin Sodium Potassium 3.3 L Chloride Carbon Dioxide BUN 42 H Creatinine Glucose 105 H POC Glucose 124 H Lactic Acid Calcium Phosphorus 1.70 L Magnesium Direct Bilirubin AST ALT Alkaline Phosphatase Lactate Dehydrogenase Troponin T C-Reactive Protein Total Protein Albumin Prealbumin Triglycerides Cholesterol LDL Cholesterol Direct HDL Cholesterol PTH Intact Urine pH Urine WBC (Auto) Urine Creatinine Urine Total Protein Fluid Total Protein Vancomycin Trough Rheumatoid Factor Complement C4 Miscellaneous Test Crossmatch 01/22/17 01/22/17 01/23/17 17:16 23:35 05:35 WBC RBC Hgb Hct MCV MCH MCHC RDW Plt Count Lymph % (Auto) [place] % (Auto) Lymph # [place] # Baso # Seg Neutrophils % Seg Neuts % (Manual) Lymphocytes % (Manual) Monocytes % (Manual) Eosinophils % (Manual) Basophils % (Manual) Nucleated RBC % Seg Neutrophils # Seg Neutrophils # Man Lymphocytes # (Manual) Monocytes # (Manual) Eosinophils # (Manual) Basophils # (Manual) PT INR Fibrinogen dRVVT Confirm Interp Factor V Activity POC ABG pH POC ABG pCO2 POC ABG pO2 ABG pO2 ABG HCO3 ABG Base Excess ABG Hemoglobin Oxyhemoglobin Sodium Potassium Chloride Carbon Dioxide BUN Creatinine Glucose POC Glucose 135 H 120 H 111 H Lactic Acid Calcium Phosphorus Magnesium Direct Bilirubin AST ALT Alkaline Phosphatase Lactate Dehydrogenase Troponin T C-Reactive Protein Total Protein Albumin Prealbumin Triglycerides Cholesterol LDL Cholesterol Direct HDL Cholesterol PTH Intact Urine pH Urine WBC (Auto) Urine Creatinine Urine Total Protein Fluid Total Protein Vancomycin Trough Rheumatoid Factor Complement C4 Miscellaneous Test Crossmatch 01/23/17 01/23/17 01/23/17 06:10 17:27 23:44 WBC RBC Hgb Hct MCV MCH MCHC RDW Plt Count Lymph % (Auto) [place] % (Auto) Lymph # [place] # Baso # Seg Neutrophils % Seg Neuts % (Manual) Lymphocytes % (Manual) Monocytes % (Manual) Eosinophils % (Manual) Basophils % (Manual) Nucleated RBC % Seg Neutrophils # Seg Neutrophils # Man Lymphocytes # (Manual) Monocytes # (Manual) Eosinophils # (Manual) Basophils # (Manual) PT INR Fibrinogen dRVVT Confirm Interp Factor V Activity POC ABG pH POC ABG pCO2 POC ABG pO2 ABG pO2 ABG HCO3 ABG Base Excess ABG Hemoglobin Oxyhemoglobin Sodium Potassium 3.3 L Chloride Carbon Dioxide BUN 66 H Creatinine 1.3 H Glucose 109 H POC Glucose 120 H 115 H Lactic Acid Calcium Phosphorus 2.20 L D Magnesium Direct Bilirubin AST ALT Alkaline Phosphatase Lactate Dehydrogenase Troponin T C-Reactive Protein Total Protein Albumin Prealbumin Triglycerides Cholesterol LDL Cholesterol Direct HDL Cholesterol PTH Intact Urine pH Urine WBC (Auto) Urine Creatinine Urine Total Protein Fluid Total Protein Vancomycin Trough Rheumatoid Factor Complement C4 Miscellaneous Test Crossmatch 01/24/17 01/24/17 01/24/17 05:19 05:50 12:19 WBC RBC Hgb Hct MCV MCH MCHC RDW Plt Count Lymph % (Auto) [place] % (Auto) Lymph # [place] # Baso # Seg Neutrophils % Seg Neuts % (Manual) Lymphocytes % (Manual) Monocytes % (Manual) Eosinophils % (Manual) Basophils % (Manual) Nucleated RBC % Seg Neutrophils # Seg Neutrophils # Man Lymphocytes # (Manual) Monocytes # (Manual) Eosinophils # (Manual) Basophils # (Manual) PT INR Fibrinogen dRVVT Confirm Interp Factor V Activity POC ABG pH POC ABG pCO2 POC ABG pO2 ABG pO2 ABG HCO3 ABG Base Excess ABG Hemoglobin Oxyhemoglobin Sodium Potassium Chloride Carbon Dioxide BUN 47 H Creatinine Glucose 117 H POC Glucose 126 H 119 H Lactic Acid Calcium Phosphorus 2.30 L Magnesium 1.60 L Direct Bilirubin AST ALT Alkaline Phosphatase Lactate Dehydrogenase Troponin T C-Reactive Protein Total Protein Albumin Prealbumin Triglycerides Cholesterol LDL Cholesterol Direct HDL Cholesterol PTH Intact Urine pH Urine WBC (Auto) Urine Creatinine Urine Total Protein Fluid Total Protein Vancomycin Trough Rheumatoid Factor Complement C4 Miscellaneous Test Crossmatch 01/24/17 01/25/17 01/25/17 17:08 00:37 04:00 WBC RBC Hgb Hct MCV MCH MCHC RDW Plt Count Lymph % (Auto) [place] % (Auto) Lymph # [place] # Baso # Seg Neutrophils % Seg Neuts % (Manual) Lymphocytes % (Manual) Monocytes % (Manual) Eosinophils % (Manual) Basophils % (Manual) Nucleated RBC % Seg Neutrophils # Seg Neutrophils # Man Lymphocytes # (Manual) Monocytes # (Manual) Eosinophils # (Manual) Basophils # (Manual) PT INR Fibrinogen dRVVT Confirm Interp Factor V Activity POC ABG pH POC ABG pCO2 POC ABG pO2 ABG pO2 ABG HCO3 ABG Base Excess ABG Hemoglobin Oxyhemoglobin Sodium Potassium Chloride Carbon Dioxide BUN 72 H Creatinine 1.3 H Glucose POC Glucose 127 H 110 H Lactic Acid Calcium Phosphorus Magnesium Direct Bilirubin AST ALT Alkaline Phosphatase Lactate Dehydrogenase Troponin T C-Reactive Protein Total Protein Albumin Prealbumin Triglycerides Cholesterol LDL Cholesterol Direct HDL Cholesterol PTH Intact Urine pH Urine WBC (Auto) Urine Creatinine Urine Total Protein Fluid Total Protein Vancomycin Trough Rheumatoid Factor Complement C4 Miscellaneous Test Crossmatch 01/25/17 01/25/17 01/25/17 04:00 11:15 13:05 WBC RBC 2.49 L Hgb 6.7 L Hct 20.9 L MCV MCH 27 L MCHC RDW 18.8 H Plt Count Lymph % (Auto) [place] % (Auto) 10.1 H Lymph # [place] # 1.0 H Baso # Seg Neutrophils % Seg Neuts % (Manual) Lymphocytes % (Manual) Monocytes % (Manual) Eosinophils % (Manual) Basophils % (Manual) Nucleated RBC % Seg Neutrophils # Seg Neutrophils # Man Lymphocytes # (Manual) Monocytes # (Manual) Eosinophils # (Manual) Basophils # (Manual) PT INR Fibrinogen dRVVT Confirm Interp Factor V Activity POC ABG pH POC ABG pCO2 POC ABG pO2 ABG pO2 ABG HCO3 ABG Base Excess ABG Hemoglobin Oxyhemoglobin Sodium Potassium Chloride Carbon Dioxide BUN Creatinine Glucose POC Glucose 128 H Lactic Acid Calcium Phosphorus Magnesium Direct Bilirubin AST ALT Alkaline Phosphatase Lactate Dehydrogenase Troponin T C-Reactive Protein Total Protein Albumin Prealbumin Triglycerides Cholesterol LDL Cholesterol Direct HDL Cholesterol PTH Intact Urine pH Urine WBC (Auto) Urine Creatinine Urine Total Protein Fluid Total Protein Vancomycin Trough Rheumatoid Factor Complement C4 Miscellaneous Test Crossmatch See Detail 01/25/17 01/25/17 01/26/17 18:02 23:07 01:20 WBC RBC Hgb Hct MCV MCH MCHC RDW Plt Count Lymph % (Auto) [place] % (Auto) Lymph # [place] # Baso # Seg Neutrophils % Seg Neuts % (Manual) Lymphocytes % (Manual) Monocytes % (Manual) Eosinophils % (Manual) Basophils % (Manual) Nucleated RBC % Seg Neutrophils # Seg Neutrophils # Man Lymphocytes # (Manual) Monocytes # (Manual) Eosinophils # (Manual) Basophils # (Manual) PT INR Fibrinogen dRVVT Confirm Interp Factor V Activity POC ABG pH POC ABG pCO2 POC ABG pO2 ABG pO2 ABG HCO3 ABG Base Excess ABG Hemoglobin Oxyhemoglobin Sodium Potassium Chloride Carbon Dioxide BUN Creatinine Glucose POC Glucose 120 H 123 H 112 H Lactic Acid Calcium Phosphorus Magnesium Direct Bilirubin AST ALT Alkaline Phosphatase Lactate Dehydrogenase Troponin T C-Reactive Protein Total Protein Albumin Prealbumin Triglycerides Cholesterol LDL Cholesterol Direct HDL Cholesterol PTH Intact Urine pH Urine WBC (Auto) Urine Creatinine Urine Total Protein Fluid Total Protein Vancomycin Trough Rheumatoid Factor Complement C4 Miscellaneous Test Crossmatch 01/26/17 01/26/17 01/26/17 04:20 04:20 11:23 WBC 13.1 H RBC 3.28 L Hgb 9.0 L Hct 26.9 L D MCV MCH 27 L MCHC RDW 17.2 H Plt Count Lymph % (Auto) [place] % (Auto) 9.0 H Lymph # [place] # 1.2 H Baso # Seg Neutrophils % 73.1 H Seg Neuts % (Manual) Lymphocytes % (Manual) Monocytes % (Manual) Eosinophils % (Manual) Basophils % (Manual) Nucleated RBC % Seg Neutrophils # 9.6 H Seg Neutrophils # Man Lymphocytes # (Manual) Monocytes # (Manual) Eosinophils # (Manual) Basophils # (Manual) PT INR Fibrinogen dRVVT Confirm Interp Factor V Activity POC ABG pH POC ABG pCO2 POC ABG pO2 ABG pO2 ABG HCO3 ABG Base Excess ABG Hemoglobin Oxyhemoglobin Sodium Potassium Chloride Carbon Dioxide BUN 51 H Creatinine Glucose 117 H POC Glucose 125 H Lactic Acid Calcium Phosphorus Magnesium Direct Bilirubin AST ALT Alkaline Phosphatase Lactate Dehydrogenase Troponin T C-Reactive Protein Total Protein Albumin Prealbumin Triglycerides Cholesterol LDL Cholesterol Direct HDL Cholesterol PTH Intact Urine pH Urine WBC (Auto) Urine Creatinine Urine Total Protein Fluid Total Protein Vancomycin Trough Rheumatoid Factor Complement C4 Miscellaneous Test Crossmatch 01/26/17 01/27/17 01/27/17 17:11 00:30 04:00 WBC RBC Hgb Hct MCV MCH MCHC RDW Plt Count Lymph % (Auto) [place] % (Auto) Lymph # [place] # Baso # Seg Neutrophils % Seg Neuts % (Manual) Lymphocytes % (Manual) Monocytes % (Manual) Eosinophils % (Manual) Basophils % (Manual) Nucleated RBC % Seg Neutrophils # Seg Neutrophils # Man Lymphocytes # (Manual) Monocytes # (Manual) Eosinophils # (Manual) Basophils # (Manual) PT INR Fibrinogen dRVVT Confirm Interp Factor V Activity POC ABG pH POC ABG pCO2 POC ABG pO2 ABG pO2 ABG HCO3 ABG Base Excess ABG Hemoglobin Oxyhemoglobin Sodium Potassium Chloride 97.7 L Carbon Dioxide 21 L BUN 79 H Creatinine 1.7 H D Glucose 112 H POC Glucose 133 H 135 H Lactic Acid Calcium Phosphorus 5.00 H D Magnesium Direct Bilirubin AST ALT Alkaline Phosphatase Lactate Dehydrogenase Troponin T C-Reactive Protein Total Protein Albumin Prealbumin Triglycerides Cholesterol LDL Cholesterol Direct HDL Cholesterol PTH Intact Urine pH Urine WBC (Auto) Urine Creatinine Urine Total Protein Fluid Total Protein Vancomycin Trough Rheumatoid Factor Complement C4 Miscellaneous Test Crossmatch 01/27/17 01/27/17 01/27/17 05:12 12:18 17:25 WBC RBC Hgb Hct MCV MCH MCHC RDW Plt Count Lymph % (Auto) [place] % (Auto) Lymph # [place] # Baso # Seg Neutrophils % Seg Neuts % (Manual) Lymphocytes % (Manual) Monocytes % (Manual) Eosinophils % (Manual) Basophils % (Manual) Nucleated RBC % Seg Neutrophils # Seg Neutrophils # Man Lymphocytes # (Manual) Monocytes # (Manual) Eosinophils # (Manual) Basophils # (Manual) PT INR Fibrinogen dRVVT Confirm Interp Factor V Activity POC ABG pH POC ABG pCO2 POC ABG pO2 ABG pO2 ABG HCO3 ABG Base Excess ABG Hemoglobin Oxyhemoglobin Sodium Potassium Chloride Carbon Dioxide BUN Creatinine Glucose POC Glucose 116 H 153 H 152 H Lactic Acid Calcium Phosphorus Magnesium Direct Bilirubin AST ALT Alkaline Phosphatase Lactate Dehydrogenase Troponin T C-Reactive Protein Total Protein Albumin Prealbumin Triglycerides Cholesterol LDL Cholesterol Direct HDL Cholesterol PTH Intact Urine pH Urine WBC (Auto) Urine Creatinine Urine Total Protein Fluid Total Protein Vancomycin Trough Rheumatoid Factor Complement C4 Miscellaneous Test Crossmatch 01/27/17 01/28/17 01/28/17 23:42 04:00 04:00 WBC 14.4 H RBC 2.82 L Hgb 7.4 L Hct 23.5 L MCV MCH 26 L MCHC RDW 17.6 H Plt Count Lymph % (Auto) 10.2 L [place] % (Auto) 11.0 H Lymph # [place] # 1.6 H Baso # Seg Neutrophils % 78.0 H Seg Neuts % (Manual) Lymphocytes % (Manual) Monocytes % (Manual) Eosinophils % (Manual) Basophils % (Manual) Nucleated RBC % Seg Neutrophils # 11.3 H Seg Neutrophils # Man Lymphocytes # (Manual) Monocytes # (Manual) Eosinophils # (Manual) Basophils # (Manual) PT INR Fibrinogen dRVVT Confirm Interp Factor V Activity POC ABG pH POC ABG pCO2 POC ABG pO2 ABG pO2 ABG HCO3 ABG Base Excess ABG Hemoglobin Oxyhemoglobin Sodium Potassium Chloride Carbon Dioxide BUN 55 H Creatinine 1.3 H Glucose 114 H POC Glucose 121 H Lactic Acid Calcium Phosphorus Magnesium Direct Bilirubin AST ALT Alkaline Phosphatase Lactate Dehydrogenase Troponin T C-Reactive Protein Total Protein Albumin 1.4 L Prealbumin Triglycerides Cholesterol LDL Cholesterol Direct HDL Cholesterol PTH Intact Urine pH Urine WBC (Auto) Urine Creatinine Urine Total Protein Fluid Total Protein Vancomycin Trough Rheumatoid Factor Complement C4 Miscellaneous Test Crossmatch 01/28/17 01/28/17 01/29/17 04:59 12:30 00:02 WBC RBC Hgb Hct MCV MCH MCHC RDW Plt Count Lymph % (Auto) [place] % (Auto) Lymph # [place] # Baso # Seg Neutrophils % Seg Neuts % (Manual) Lymphocytes % (Manual) Monocytes % (Manual) Eosinophils % (Manual) Basophils % (Manual) Nucleated RBC % Seg Neutrophils # Seg Neutrophils # Man Lymphocytes # (Manual) Monocytes # (Manual) Eosinophils # (Manual) Basophils # (Manual) PT INR Fibrinogen dRVVT Confirm Interp Factor V Activity POC ABG pH POC ABG pCO2 POC ABG pO2 ABG pO2 ABG HCO3 ABG Base Excess ABG Hemoglobin Oxyhemoglobin Sodium Potassium Chloride Carbon Dioxide BUN Creatinine Glucose POC Glucose 126 H 119 H 138 H Lactic Acid Calcium Phosphorus Magnesium Direct Bilirubin AST ALT Alkaline Phosphatase Lactate Dehydrogenase Troponin T C-Reactive Protein Total Protein Albumin Prealbumin Triglycerides Cholesterol LDL Cholesterol Direct HDL Cholesterol PTH Intact Urine pH Urine WBC (Auto) Urine Creatinine Urine Total Protein Fluid Total Protein Vancomycin Trough Rheumatoid Factor Complement C4 Miscellaneous Test Crossmatch 01/29/17 01/29/17 01/29/17 04:58 06:15 11:35 WBC RBC Hgb Hct MCV MCH MCHC RDW Plt Count Lymph % (Auto) [place] % (Auto) Lymph # [place] # Baso # Seg Neutrophils % Seg Neuts % (Manual) Lymphocytes % (Manual) Monocytes % (Manual) Eosinophils % (Manual) Basophils % (Manual) Nucleated RBC % Seg Neutrophils # Seg Neutrophils # Man Lymphocytes # (Manual) Monocytes # (Manual) Eosinophils # (Manual) Basophils # (Manual) PT INR Fibrinogen dRVVT Confirm Interp Factor V Activity POC ABG pH POC ABG pCO2 POC ABG pO2 ABG pO2 ABG HCO3 ABG Base Excess ABG Hemoglobin Oxyhemoglobin Sodium Potassium Chloride Carbon Dioxide BUN 85 H Creatinine 1.7 H Glucose 105 H POC Glucose 114 H 110 H Lactic Acid Calcium Phosphorus Magnesium 2.40 H Direct Bilirubin AST ALT Alkaline Phosphatase Lactate Dehydrogenase Troponin T C-Reactive Protein Total Protein Albumin Prealbumin Triglycerides Cholesterol LDL Cholesterol Direct HDL Cholesterol PTH Intact Urine pH Urine WBC (Auto) Urine Creatinine Urine Total Protein Fluid Total Protein Vancomycin Trough Rheumatoid Factor Complement C4 Miscellaneous Test Crossmatch 01/29/17 01/29/17 01/30/17 18:24 23:41 05:12 WBC RBC Hgb Hct MCV MCH MCHC RDW Plt Count Lymph % (Auto) [place] % (Auto) Lymph # [place] # Baso # Seg Neutrophils % Seg Neuts % (Manual) Lymphocytes % (Manual) Monocytes % (Manual) Eosinophils % (Manual) Basophils % (Manual) Nucleated RBC % Seg Neutrophils # Seg Neutrophils # Man Lymphocytes # (Manual) Monocytes # (Manual) Eosinophils # (Manual) Basophils # (Manual) PT INR Fibrinogen dRVVT Confirm Interp Factor V Activity POC ABG pH POC ABG pCO2 POC ABG pO2 ABG pO2 ABG HCO3 ABG Base Excess ABG Hemoglobin Oxyhemoglobin Sodium Potassium Chloride Carbon Dioxide BUN Creatinine Glucose POC Glucose 109 H 134 H 109 H Lactic Acid Calcium Phosphorus Magnesium Direct Bilirubin AST ALT Alkaline Phosphatase Lactate Dehydrogenase Troponin T C-Reactive Protein Total Protein Albumin Prealbumin Triglycerides Cholesterol LDL Cholesterol Direct HDL Cholesterol PTH Intact Urine pH Urine WBC (Auto) Urine Creatinine Urine Total Protein Fluid Total Protein Vancomycin Trough Rheumatoid Factor Complement C4 Miscellaneous Test Crossmatch 01/30/17 01/30/17 01/30/17 11:26 17:43 23:39 WBC RBC Hgb Hct MCV MCH MCHC RDW Plt Count Lymph % (Auto) [place] % (Auto) Lymph # [place] # Baso # Seg Neutrophils % Seg Neuts % (Manual) Lymphocytes % (Manual) Monocytes % (Manual) Eosinophils % (Manual) Basophils % (Manual) Nucleated RBC % Seg Neutrophils # Seg Neutrophils # Man Lymphocytes # (Manual) Monocytes # (Manual) Eosinophils # (Manual) Basophils # (Manual) PT INR Fibrinogen dRVVT Confirm Interp Factor V Activity POC ABG pH POC ABG pCO2 POC ABG pO2 ABG pO2 ABG HCO3 ABG Base Excess ABG Hemoglobin Oxyhemoglobin Sodium Potassium Chloride Carbon Dioxide BUN Creatinine Glucose POC Glucose 135 H 143 H 122 H Lactic Acid Calcium Phosphorus Magnesium Direct Bilirubin AST ALT Alkaline Phosphatase Lactate Dehydrogenase Troponin T C-Reactive Protein Total Protein Albumin Prealbumin Triglycerides Cholesterol LDL Cholesterol Direct HDL Cholesterol PTH Intact Urine pH Urine WBC (Auto) Urine Creatinine Urine Total Protein Fluid Total Protein Vancomycin Trough Rheumatoid Factor Complement C4 Miscellaneous Test Crossmatch 01/31/17 01/31/17 01/31/17 04:00 05:40 11:12 WBC RBC Hgb Hct MCV MCH MCHC RDW Plt Count Lymph % (Auto) [place] % (Auto) Lymph # [place] # Baso # Seg Neutrophils % Seg Neuts % (Manual) Lymphocytes % (Manual) Monocytes % (Manual) Eosinophils % (Manual) Basophils % (Manual) Nucleated RBC % Seg Neutrophils # Seg Neutrophils # Man Lymphocytes # (Manual) Monocytes # (Manual) Eosinophils # (Manual) Basophils # (Manual) PT INR Fibrinogen dRVVT Confirm Interp Factor V Activity POC ABG pH POC ABG pCO2 POC ABG pO2 ABG pO2 ABG HCO3 ABG Base Excess ABG Hemoglobin Oxyhemoglobin Sodium Potassium Chloride Carbon Dioxide BUN 78 H Creatinine 1.5 H Glucose 108 H POC Glucose 123 H Lactic Acid Calcium Phosphorus Magnesium Direct Bilirubin AST ALT Alkaline Phosphatase Lactate Dehydrogenase Troponin T C-Reactive Protein 8.10 H Total Protein Albumin Prealbumin Triglycerides Cholesterol LDL Cholesterol Direct HDL Cholesterol PTH Intact Urine pH Urine WBC (Auto) Urine Creatinine Urine Total Protein Fluid Total Protein Vancomycin Trough Rheumatoid Factor Complement C4 Miscellaneous Test Crossmatch 01/31/17 01/31/17 01/31/17 11:16 17:45 17:50 WBC RBC Hgb Hct MCV MCH MCHC RDW Plt Count Lymph % (Auto) [place] % (Auto) Lymph # [place] # Baso # Seg Neutrophils % Seg Neuts % (Manual) Lymphocytes % (Manual) Monocytes % (Manual) Eosinophils % (Manual) Basophils % (Manual) Nucleated RBC % Seg Neutrophils # Seg Neutrophils # Man Lymphocytes # (Manual) Monocytes # (Manual) Eosinophils # (Manual) Basophils # (Manual) PT INR Fibrinogen dRVVT Confirm Interp Factor V Activity POC ABG pH POC ABG pCO2 POC ABG pO2 ABG pO2 ABG HCO3 ABG Base Excess ABG Hemoglobin Oxyhemoglobin Sodium Potassium Chloride Carbon Dioxide BUN Creatinine Glucose POC Glucose 119 H 111 H Lactic Acid Calcium Phosphorus Magnesium Direct Bilirubin AST ALT Alkaline Phosphatase Lactate Dehydrogenase Troponin T C-Reactive Protein Total Protein Albumin Prealbumin Triglycerides Cholesterol LDL Cholesterol Direct HDL Cholesterol PTH Intact 6.76 L Urine pH Urine WBC (Auto) Urine Creatinine Urine Total Protein Fluid Total Protein Vancomycin Trough Rheumatoid Factor Complement C4 Miscellaneous Test Crossmatch 01/31/17 02/01/17 02/01/17 23:19 05:42 09:24 WBC RBC Hgb Hct MCV MCH MCHC RDW Plt Count Lymph % (Auto) [place] % (Auto) Lymph # [place] # Baso # Seg Neutrophils % Seg Neuts % (Manual) Lymphocytes % (Manual) Monocytes % (Manual) Eosinophils % (Manual) Basophils % (Manual) Nucleated RBC % Seg Neutrophils # Seg Neutrophils # Man Lymphocytes # (Manual) Monocytes # (Manual) Eosinophils # (Manual) Basophils # (Manual) PT INR Fibrinogen dRVVT Confirm Interp Factor V Activity POC ABG pH POC ABG pCO2 POC ABG pO2 ABG pO2 ABG HCO3 ABG Base Excess ABG Hemoglobin Oxyhemoglobin Sodium Potassium Chloride Carbon Dioxide BUN Creatinine Glucose POC Glucose 118 H 122 H Lactic Acid Calcium Phosphorus Magnesium 2.60 H Direct Bilirubin AST ALT Alkaline Phosphatase Lactate Dehydrogenase Troponin T C-Reactive Protein Total Protein Albumin Prealbumin Triglycerides Cholesterol LDL Cholesterol Direct HDL Cholesterol PTH Intact Urine pH Urine WBC (Auto) Urine Creatinine Urine Total Protein Fluid Total Protein Vancomycin Trough Rheumatoid Factor Complement C4 Miscellaneous Test Crossmatch 02/01/17 02/01/17 02/02/17 09:24 12:15 07:40 WBC RBC Hgb Hct MCV MCH MCHC RDW Plt Count Lymph % (Auto) [place] % (Auto) Lymph # [place] # Baso # Seg Neutrophils % Seg Neuts % (Manual) Lymphocytes % (Manual) Monocytes % (Manual) Eosinophils % (Manual) Basophils % (Manual) Nucleated RBC % Seg Neutrophils # Seg Neutrophils # Man Lymphocytes # (Manual) Monocytes # (Manual) Eosinophils # (Manual) Basophils # (Manual) PT INR Fibrinogen dRVVT Confirm Interp Factor V Activity POC ABG pH POC ABG pCO2 POC ABG pO2 ABG pO2 ABG HCO3 ABG Base Excess ABG Hemoglobin Oxyhemoglobin Sodium Potassium Chloride Carbon Dioxide BUN 102 H 72 H Creatinine 1.9 H 1.5 H Glucose 120 H POC Glucose 156 H Lactic Acid Calcium Phosphorus Magnesium Direct Bilirubin AST ALT Alkaline Phosphatase Lactate Dehydrogenase Troponin T C-Reactive Protein Total Protein Albumin Prealbumin Triglycerides Cholesterol LDL Cholesterol Direct HDL Cholesterol PTH Intact Urine pH Urine WBC (Auto) Urine Creatinine Urine Total Protein Fluid Total Protein Vancomycin Trough Rheumatoid Factor Complement C4 Miscellaneous Test Crossmatch 02/02/17 02/02/17 02/03/17 10:16 12:11 00:08 WBC 12.0 H RBC 3.08 L Hgb 8.3 L Hct 25.6 L MCV MCH 27 L MCHC RDW 18.2 H Plt Count Lymph % (Auto) [place] % (Auto) Lymph # [place] # Baso # Seg Neutrophils % 78.4 H Seg Neuts % (Manual) Lymphocytes % (Manual) Monocytes % (Manual) Eosinophils % (Manual) Basophils % (Manual) Nucleated RBC % Seg Neutrophils # 9.4 H Seg Neutrophils # Man Lymphocytes # (Manual) Monocytes # (Manual) Eosinophils # (Manual) Basophils # (Manual) PT INR Fibrinogen dRVVT Confirm Interp Factor V Activity POC ABG pH POC ABG pCO2 POC ABG pO2 ABG pO2 ABG HCO3 ABG Base Excess ABG Hemoglobin Oxyhemoglobin Sodium Potassium Chloride Carbon Dioxide BUN Creatinine Glucose POC Glucose 110 H 120 H Lactic Acid Calcium Phosphorus Magnesium Direct Bilirubin AST ALT Alkaline Phosphatase Lactate Dehydrogenase Troponin T C-Reactive Protein Total Protein Albumin Prealbumin Triglycerides Cholesterol LDL Cholesterol Direct HDL Cholesterol PTH Intact Urine pH Urine WBC (Auto) Urine Creatinine Urine Total Protein Fluid Total Protein Vancomycin Trough Rheumatoid Factor Complement C4 Miscellaneous Test Crossmatch 02/03/17 02/03/17 02/03/17 05:41 07:38 11:31 WBC RBC Hgb Hct MCV MCH MCHC RDW Plt Count Lymph % (Auto) [place] % (Auto) Lymph # [place] # Baso # Seg Neutrophils % Seg Neuts % (Manual) Lymphocytes % (Manual) Monocytes % (Manual) Eosinophils % (Manual) Basophils % (Manual) Nucleated RBC % Seg Neutrophils # Seg Neutrophils # Man Lymphocytes # (Manual) Monocytes # (Manual) Eosinophils # (Manual) Basophils # (Manual) PT INR Fibrinogen dRVVT Confirm Interp Factor V Activity POC ABG pH POC ABG pCO2 POC ABG pO2 ABG pO2 ABG HCO3 ABG Base Excess ABG Hemoglobin Oxyhemoglobin Sodium 134 L Potassium Chloride Carbon Dioxide 21 L BUN 91 H Creatinine 1.9 H Glucose 110 H POC Glucose 119 H 119 H Lactic Acid Calcium 10.3 H Phosphorus Magnesium Direct Bilirubin AST ALT Alkaline Phosphatase Lactate Dehydrogenase Troponin T C-Reactive Protein Total Protein Albumin Prealbumin Triglycerides Cholesterol LDL Cholesterol Direct HDL Cholesterol PTH Intact Urine pH Urine WBC (Auto) Urine Creatinine Urine Total Protein Fluid Total Protein Vancomycin Trough Rheumatoid Factor Complement C4 Miscellaneous Test Crossmatch 02/03/17 02/04/17 02/04/17 17:13 04:00 05:18 WBC RBC Hgb Hct MCV MCH MCHC RDW Plt Count Lymph % (Auto) [place] % (Auto) Lymph # [place] # Baso # Seg Neutrophils % Seg Neuts % (Manual) Lymphocytes % (Manual) Monocytes % (Manual) Eosinophils % (Manual) Basophils % (Manual) Nucleated RBC % Seg Neutrophils # Seg Neutrophils # Man Lymphocytes # (Manual) Monocytes # (Manual) Eosinophils # (Manual) Basophils # (Manual) PT INR Fibrinogen dRVVT Confirm Interp Factor V Activity POC ABG pH POC ABG pCO2 POC ABG pO2 ABG pO2 ABG HCO3 ABG Base Excess ABG Hemoglobin Oxyhemoglobin Sodium 136 L Potassium Chloride Carbon Dioxide BUN 58 H Creatinine 1.3 H Glucose 103 H POC Glucose 133 H 132 H Lactic Acid Calcium Phosphorus 2.00 L D Magnesium 1.60 L Direct Bilirubin AST ALT Alkaline Phosphatase Lactate Dehydrogenase Troponin T C-Reactive Protein Total Protein Albumin Prealbumin Triglycerides Cholesterol LDL Cholesterol Direct HDL Cholesterol PTH Intact Urine pH Urine WBC (Auto) Urine Creatinine Urine Total Protein Fluid Total Protein Vancomycin Trough Rheumatoid Factor Complement C4 Miscellaneous Test Crossmatch 02/05/17 02/05/17 02/05/17 00:01 04:00 06:42 WBC RBC Hgb Hct MCV MCH MCHC RDW Plt Count Lymph % (Auto) [place] % (Auto) Lymph # [place] # Baso # Seg Neutrophils % Seg Neuts % (Manual) Lymphocytes % (Manual) Monocytes % (Manual) Eosinophils % (Manual) Basophils % (Manual) Nucleated RBC % Seg Neutrophils # Seg Neutrophils # Man Lymphocytes # (Manual) Monocytes # (Manual) Eosinophils # (Manual) Basophils # (Manual) PT INR Fibrinogen dRVVT Confirm Interp Factor V Activity POC ABG pH POC ABG pCO2 POC ABG pO2 ABG pO2 ABG HCO3 ABG Base Excess ABG Hemoglobin Oxyhemoglobin Sodium Potassium Chloride Carbon Dioxide BUN 83 H Creatinine 1.8 H Glucose POC Glucose 119 H 110 H Lactic Acid Calcium 10.7 H Phosphorus Magnesium Direct Bilirubin AST ALT Alkaline Phosphatase Lactate Dehydrogenase Troponin T C-Reactive Protein Total Protein Albumin Prealbumin Triglycerides Cholesterol LDL Cholesterol Direct HDL Cholesterol PTH Intact Urine pH Urine WBC (Auto) Urine Creatinine Urine Total Protein Fluid Total Protein Vancomycin Trough Rheumatoid Factor Complement C4 Miscellaneous Test Crossmatch 02/05/17 02/05/17 02/05/17 09:59 11:47 23:44 WBC RBC 2.69 L Hgb 7.2 L Hct 22.5 L MCV MCH 27 L MCHC RDW 18.6 H Plt Count Lymph % (Auto) [place] % (Auto) 9.2 H Lymph # [place] # 0.9 H Baso # Seg Neutrophils % Seg Neuts % (Manual) Lymphocytes % (Manual) Monocytes % (Manual) Eosinophils % (Manual) Basophils % (Manual) Nucleated RBC % Seg Neutrophils # Seg Neutrophils # Man Lymphocytes # (Manual) Monocytes # (Manual) Eosinophils # (Manual) Basophils # (Manual) PT INR Fibrinogen dRVVT Confirm Interp Factor V Activity POC ABG pH POC ABG pCO2 POC ABG pO2 ABG pO2 ABG HCO3 ABG Base Excess ABG Hemoglobin Oxyhemoglobin Sodium Potassium Chloride Carbon Dioxide BUN Creatinine Glucose POC Glucose 130 H 123 H Lactic Acid Calcium Phosphorus Magnesium Direct Bilirubin AST ALT Alkaline Phosphatase Lactate Dehydrogenase Troponin T C-Reactive Protein Total Protein Albumin Prealbumin Triglycerides Cholesterol LDL Cholesterol Direct HDL Cholesterol PTH Intact Urine pH Urine WBC (Auto) Urine Creatinine Urine Total Protein Fluid Total Protein Vancomycin Trough Rheumatoid Factor Complement C4 Miscellaneous Test Crossmatch 02/06/17 02/06/17 02/06/17 04:45 05:58 12:01 WBC RBC Hgb Hct MCV MCH MCHC RDW Plt Count Lymph % (Auto) [place] % (Auto) Lymph # [place] # Baso # Seg Neutrophils % Seg Neuts % (Manual) Lymphocytes % (Manual) Monocytes % (Manual) Eosinophils % (Manual) Basophils % (Manual) Nucleated RBC % Seg Neutrophils # Seg Neutrophils # Man Lymphocytes # (Manual) Monocytes # (Manual) Eosinophils # (Manual) Basophils # (Manual) PT INR Fibrinogen dRVVT Confirm Interp Factor V Activity POC ABG pH POC ABG pCO2 POC ABG pO2 ABG pO2 ABG HCO3 ABG Base Excess ABG Hemoglobin Oxyhemoglobin Sodium Potassium Chloride Carbon Dioxide BUN 101 H Creatinine 2.0 H Glucose 102 H POC Glucose 115 H 132 H Lactic Acid Calcium 10.6 H Phosphorus Magnesium Direct Bilirubin AST ALT Alkaline Phosphatase 199 H Lactate Dehydrogenase Troponin T C-Reactive Protein Total Protein Albumin 1.4 L Prealbumin Triglycerides Cholesterol LDL Cholesterol Direct HDL Cholesterol PTH Intact Urine pH Urine WBC (Auto) Urine Creatinine Urine Total Protein Fluid Total Protein Vancomycin Trough Rheumatoid Factor Complement C4 Miscellaneous Test Crossmatch 02/06/17 02/06/17 02/07/17 17:41 23:32 05:04 WBC RBC Hgb Hct MCV MCH MCHC RDW Plt Count Lymph % (Auto) [place] % (Auto) Lymph # [place] # Baso # Seg Neutrophils % Seg Neuts % (Manual) Lymphocytes % (Manual) Monocytes % (Manual) Eosinophils % (Manual) Basophils % (Manual) Nucleated RBC % Seg Neutrophils # Seg Neutrophils # Man Lymphocytes # (Manual) Monocytes # (Manual) Eosinophils # (Manual) Basophils # (Manual) PT INR Fibrinogen dRVVT Confirm Interp Factor V Activity POC ABG pH POC ABG pCO2 POC ABG pO2 ABG pO2 ABG HCO3 ABG Base Excess ABG Hemoglobin Oxyhemoglobin Sodium Potassium Chloride Carbon Dioxide BUN Creatinine Glucose POC Glucose 134 H 128 H 119 H Lactic Acid Calcium Phosphorus Magnesium Direct Bilirubin AST ALT Alkaline Phosphatase Lactate Dehydrogenase Troponin T C-Reactive Protein Total Protein Albumin Prealbumin Triglycerides Cholesterol LDL Cholesterol Direct HDL Cholesterol PTH Intact Urine pH Urine WBC (Auto) Urine Creatinine Urine Total Protein Fluid Total Protein Vancomycin Trough Rheumatoid Factor Complement C4 Miscellaneous Test Crossmatch 02/07/17 02/07/17 02/07/17 06:30 11:20 17:13 WBC RBC Hgb Hct MCV MCH MCHC RDW Plt Count Lymph % (Auto) [place] % (Auto) Lymph # [place] # Baso # Seg Neutrophils % Seg Neuts % (Manual) Lymphocytes % (Manual) Monocytes % (Manual) Eosinophils % (Manual) Basophils % (Manual) Nucleated RBC % Seg Neutrophils # Seg Neutrophils # Man Lymphocytes # (Manual) Monocytes # (Manual) Eosinophils # (Manual) Basophils # (Manual) PT INR Fibrinogen dRVVT Confirm Interp Factor V Activity POC ABG pH POC ABG pCO2 POC ABG pO2 ABG pO2 ABG HCO3 ABG Base Excess ABG Hemoglobin Oxyhemoglobin Sodium Potassium 3.4 L Chloride Carbon Dioxide BUN 69 H Creatinine 1.5 H Glucose 105 H POC Glucose 117 H 110 H Lactic Acid Calcium Phosphorus Magnesium 1.50 L Direct Bilirubin AST ALT Alkaline Phosphatase Lactate Dehydrogenase Troponin T C-Reactive Protein Total Protein Albumin Prealbumin Triglycerides Cholesterol LDL Cholesterol Direct HDL Cholesterol PTH Intact Urine pH Urine WBC (Auto) Urine Creatinine Urine Total Protein Fluid Total Protein Vancomycin Trough Rheumatoid Factor Complement C4 Miscellaneous Test Crossmatch 02/07/17 02/08/17 02/08/17 20:47 04:00 11:43 WBC RBC Hgb Hct MCV MCH MCHC RDW Plt Count Lymph % (Auto) [place] % (Auto) Lymph # [place] # Baso # Seg Neutrophils % Seg Neuts % (Manual) Lymphocytes % (Manual) Monocytes % (Manual) Eosinophils % (Manual) Basophils % (Manual) Nucleated RBC % Seg Neutrophils # Seg Neutrophils # Man Lymphocytes # (Manual) Monocytes # (Manual) Eosinophils # (Manual) Basophils # (Manual) PT INR Fibrinogen dRVVT Confirm Interp Factor V Activity POC ABG pH POC ABG pCO2 POC ABG pO2 ABG pO2 ABG HCO3 ABG Base Excess ABG Hemoglobin Oxyhemoglobin Sodium Potassium Chloride Carbon Dioxide BUN 86 H Creatinine 1.7 H Glucose POC Glucose 115 H 122 H Lactic Acid Calcium Phosphorus Magnesium 1.60 L Direct Bilirubin AST ALT Alkaline Phosphatase Lactate Dehydrogenase Troponin T C-Reactive Protein Total Protein Albumin Prealbumin Triglycerides Cholesterol LDL Cholesterol Direct HDL Cholesterol PTH Intact Urine pH Urine WBC (Auto) Urine Creatinine Urine Total Protein Fluid Total Protein Vancomycin Trough Rheumatoid Factor Complement C4 Miscellaneous Test Crossmatch 02/08/17 02/09/17 02/09/17 17:36 05:44 11:30 WBC RBC Hgb Hct MCV MCH MCHC RDW Plt Count Lymph % (Auto) [place] % (Auto) Lymph # [place] # Baso # Seg Neutrophils % Seg Neuts % (Manual) Lymphocytes % (Manual) Monocytes % (Manual) Eosinophils % (Manual) Basophils % (Manual) Nucleated RBC % Seg Neutrophils # Seg Neutrophils # Man Lymphocytes # (Manual) Monocytes # (Manual) Eosinophils # (Manual) Basophils # (Manual) PT INR Fibrinogen dRVVT Confirm Interp Factor V Activity POC ABG pH POC ABG pCO2 POC ABG pO2 ABG pO2 ABG HCO3 ABG Base Excess ABG Hemoglobin Oxyhemoglobin Sodium Potassium Chloride Carbon Dioxide BUN Creatinine Glucose POC Glucose 125 H 117 H 120 H Lactic Acid Calcium Phosphorus Magnesium Direct Bilirubin AST ALT Alkaline Phosphatase Lactate Dehydrogenase Troponin T C-Reactive Protein Total Protein Albumin Prealbumin Triglycerides Cholesterol LDL Cholesterol Direct HDL Cholesterol PTH Intact Urine pH Urine WBC (Auto) Urine Creatinine Urine Total Protein Fluid Total Protein Vancomycin Trough Rheumatoid Factor Complement C4 Miscellaneous Test Crossmatch 02/09/17 02/10/17 02/10/17 23:45 05:45 05:50 WBC RBC Hgb Hct MCV MCH MCHC RDW Plt Count Lymph % (Auto) [place] % (Auto) Lymph # [place] # Baso # Seg Neutrophils % Seg Neuts % (Manual) Lymphocytes % (Manual) Monocytes % (Manual) Eosinophils % (Manual) Basophils % (Manual) Nucleated RBC % Seg Neutrophils # Seg Neutrophils # Man Lymphocytes # (Manual) Monocytes # (Manual) Eosinophils # (Manual) Basophils # (Manual) PT INR Fibrinogen dRVVT Confirm Interp Factor V Activity POC ABG pH POC ABG pCO2 POC ABG pO2 ABG pO2 ABG HCO3 ABG Base Excess ABG Hemoglobin Oxyhemoglobin Sodium Potassium Chloride Carbon Dioxide BUN 85 H Creatinine 1.8 H Glucose 109 H POC Glucose 114 H 189 H Lactic Acid Calcium Phosphorus Magnesium 2.50 H Direct Bilirubin AST ALT Alkaline Phosphatase Lactate Dehydrogenase Troponin T C-Reactive Protein Total Protein Albumin Prealbumin Triglycerides Cholesterol LDL Cholesterol Direct HDL Cholesterol PTH Intact Urine pH Urine WBC (Auto) Urine Creatinine Urine Total Protein Fluid Total Protein Vancomycin Trough Rheumatoid Factor Complement C4 Miscellaneous Test Crossmatch 02/10/17 02/10/17 02/10/17 05:51 11:55 17:42 WBC RBC Hgb Hct MCV MCH MCHC RDW Plt Count Lymph % (Auto) [place] % (Auto) Lymph # [place] # Baso # Seg Neutrophils % Seg Neuts % (Manual) Lymphocytes % (Manual) Monocytes % (Manual) Eosinophils % (Manual) Basophils % (Manual) Nucleated RBC % Seg Neutrophils # Seg Neutrophils # Man Lymphocytes # (Manual) Monocytes # (Manual) Eosinophils # (Manual) Basophils # (Manual) PT INR Fibrinogen dRVVT Confirm Interp Factor V Activity POC ABG pH POC ABG pCO2 POC ABG pO2 ABG pO2 ABG HCO3 ABG Base Excess ABG Hemoglobin Oxyhemoglobin Sodium Potassium Chloride Carbon Dioxide BUN Creatinine Glucose POC Glucose 106 H 146 H 132 H Lactic Acid Calcium Phosphorus Magnesium Direct Bilirubin AST ALT Alkaline Phosphatase Lactate Dehydrogenase Troponin T C-Reactive Protein Total Protein Albumin Prealbumin Triglycerides Cholesterol LDL Cholesterol Direct HDL Cholesterol PTH Intact Urine pH Urine WBC (Auto) Urine Creatinine Urine Total Protein Fluid Total Protein Vancomycin Trough Rheumatoid Factor Complement C4 Miscellaneous Test Crossmatch 02/10/17 02/11/17 02/11/17 23:43 04:08 05:34 WBC RBC Hgb Hct MCV MCH MCHC RDW Plt Count Lymph % (Auto) [place] % (Auto) Lymph # [place] # Baso # Seg Neutrophils % Seg Neuts % (Manual) Lymphocytes % (Manual) Monocytes % (Manual) Eosinophils % (Manual) Basophils % (Manual) Nucleated RBC % Seg Neutrophils # Seg Neutrophils # Man Lymphocytes # (Manual) Monocytes # (Manual) Eosinophils # (Manual) Basophils # (Manual) PT INR Fibrinogen dRVVT Confirm Interp Factor V Activity POC ABG pH POC ABG pCO2 POC ABG pO2 ABG pO2 ABG HCO3 ABG Base Excess ABG Hemoglobin Oxyhemoglobin Sodium 136 L Potassium Chloride Carbon Dioxide BUN 65 H Creatinine 1.7 H Glucose 105 H POC Glucose 130 H 113 H Lactic Acid Calcium Phosphorus Magnesium Direct Bilirubin AST ALT Alkaline Phosphatase Lactate Dehydrogenase Troponin T C-Reactive Protein Total Protein Albumin Prealbumin Triglycerides Cholesterol LDL Cholesterol Direct HDL Cholesterol PTH Intact Urine pH Urine WBC (Auto) Urine Creatinine Urine Total Protein Fluid Total Protein Vancomycin Trough Rheumatoid Factor Complement C4 Miscellaneous Test Crossmatch 02/11/17 02/11/17 02/12/17 11:56 23:18 06:19 WBC RBC Hgb Hct MCV MCH MCHC RDW Plt Count Lymph % (Auto) [place] % (Auto) Lymph # [place] # Baso # Seg Neutrophils % Seg Neuts % (Manual) Lymphocytes % (Manual) Monocytes % (Manual) Eosinophils % (Manual) Basophils % (Manual) Nucleated RBC % Seg Neutrophils # Seg Neutrophils # Man Lymphocytes # (Manual) Monocytes # (Manual) Eosinophils # (Manual) Basophils # (Manual) PT INR Fibrinogen dRVVT Confirm Interp Factor V Activity POC ABG pH POC ABG pCO2 POC ABG pO2 ABG pO2 ABG HCO3 ABG Base Excess ABG Hemoglobin Oxyhemoglobin Sodium 136 L Potassium Chloride 97.1 L Carbon Dioxide BUN 93 H Creatinine 2.4 H Glucose POC Glucose 126 H 119 H Lactic Acid Calcium 11.0 H Phosphorus Magnesium Direct Bilirubin AST ALT Alkaline Phosphatase Lactate Dehydrogenase Troponin T C-Reactive Protein Total Protein Albumin Prealbumin Triglycerides Cholesterol LDL Cholesterol Direct HDL Cholesterol PTH Intact Urine pH Urine WBC (Auto) Urine Creatinine Urine Total Protein Fluid Total Protein Vancomycin Trough Rheumatoid Factor Complement C4 Miscellaneous Test Crossmatch 02/12/17 02/12/17 02/12/17 08:00 10:25 11:42 WBC 15.4 H RBC 2.63 L Hgb 6.9 L Hct 22.6 L MCV MCH 26 L MCHC RDW 20.5 H Plt Count Lymph % (Auto) [place] % (Auto) Lymph # [place] # Baso # Seg Neutrophils % Seg Neuts % (Manual) Lymphocytes % (Manual) Monocytes % (Manual) Eosinophils % (Manual) Basophils % (Manual) Nucleated RBC % Seg Neutrophils # Seg Neutrophils # Man Lymphocytes # (Manual) Monocytes # (Manual) Eosinophils # (Manual) Basophils # (Manual) PT INR Fibrinogen dRVVT Confirm Interp Factor V Activity POC ABG pH POC ABG pCO2 POC ABG pO2 ABG pO2 ABG HCO3 ABG Base Excess ABG Hemoglobin Oxyhemoglobin Sodium Potassium Chloride Carbon Dioxide BUN Creatinine Glucose POC Glucose 142 H Lactic Acid Calcium Phosphorus Magnesium Direct Bilirubin AST ALT Alkaline Phosphatase Lactate Dehydrogenase Troponin T C-Reactive Protein Total Protein Albumin Prealbumin Triglycerides Cholesterol LDL Cholesterol Direct HDL Cholesterol PTH Intact Urine pH Urine WBC (Auto) Urine Creatinine Urine Total Protein Fluid Total Protein Vancomycin Trough Rheumatoid Factor Complement C4 Miscellaneous Test Crossmatch See Detail 02/12/17 02/13/17 02/13/17 18:04 00:04 05:00 WBC RBC Hgb Hct MCV MCH MCHC RDW Plt Count Lymph % (Auto) [place] % (Auto) Lymph # [place] # Baso # Seg Neutrophils % Seg Neuts % (Manual) Lymphocytes % (Manual) Monocytes % (Manual) Eosinophils % (Manual) Basophils % (Manual) Nucleated RBC % Seg Neutrophils # Seg Neutrophils # Man Lymphocytes # (Manual) Monocytes # (Manual) Eosinophils # (Manual) Basophils # (Manual) PT INR Fibrinogen dRVVT Confirm Interp Factor V Activity POC ABG pH POC ABG pCO2 POC ABG pO2 ABG pO2 ABG HCO3 ABG Base Excess ABG Hemoglobin Oxyhemoglobin Sodium 134 L Potassium Chloride 96.1 L Carbon Dioxide 20 L BUN 125 H Creatinine 3.0 H Glucose 111 H POC Glucose 135 H 109 H Lactic Acid Calcium 11.3 H Phosphorus Magnesium Direct Bilirubin AST ALT Alkaline Phosphatase Lactate Dehydrogenase Troponin T C-Reactive Protein Total Protein Albumin Prealbumin Triglycerides Cholesterol LDL Cholesterol Direct HDL Cholesterol PTH Intact Urine pH Urine WBC (Auto) Urine Creatinine Urine Total Protein Fluid Total Protein Vancomycin Trough Rheumatoid Factor Complement C4 Miscellaneous Test Crossmatch 02/13/17 02/13/17 02/13/17 05:00 05:28 12:03 WBC 11.9 H RBC 2.92 L Hgb 7.8 L Hct 25.2 L MCV MCH 27 L MCHC RDW 19.3 H Plt Count Lymph % (Auto) [place] % (Auto) Lymph # [place] # Baso # Seg Neutrophils % Seg Neuts % (Manual) Lymphocytes % (Manual) Monocytes % (Manual) Eosinophils % (Manual) Basophils % (Manual) Nucleated RBC % Seg Neutrophils # Seg Neutrophils # Man Lymphocytes # (Manual) Monocytes # (Manual) Eosinophils # (Manual) Basophils # (Manual) PT INR Fibrinogen dRVVT Confirm Interp Factor V Activity POC ABG pH POC ABG pCO2 POC ABG pO2 ABG pO2 ABG HCO3 ABG Base Excess ABG Hemoglobin Oxyhemoglobin Sodium Potassium Chloride Carbon Dioxide BUN Creatinine Glucose POC Glucose 124 H 160 H Lactic Acid Calcium Phosphorus Magnesium Direct Bilirubin AST ALT Alkaline Phosphatase Lactate Dehydrogenase Troponin T C-Reactive Protein Total Protein Albumin Prealbumin Triglycerides Cholesterol LDL Cholesterol Direct HDL Cholesterol PTH Intact Urine pH Urine WBC (Auto) Urine Creatinine Urine Total Protein Fluid Total Protein Vancomycin Trough Rheumatoid Factor Complement C4 Miscellaneous Test Crossmatch 02/13/17 02/14/17 02/14/17 18:09 06:16 08:08 WBC 15.2 H RBC 2.97 L Hgb 8.1 L Hct 26.3 L MCV MCH MCHC RDW 19.3 H Plt Count Lymph % (Auto) [place] % (Auto) Lymph # [place] # Baso # Seg Neutrophils % Seg Neuts % (Manual) Lymphocytes % (Manual) Monocytes % (Manual) Eosinophils % (Manual) Basophils % (Manual) Nucleated RBC % Seg Neutrophils # Seg Neutrophils # Man Lymphocytes # (Manual) Monocytes # (Manual) Eosinophils # (Manual) Basophils # (Manual) PT INR Fibrinogen dRVVT Confirm Interp Factor V Activity POC ABG pH POC ABG pCO2 POC ABG pO2 ABG pO2 ABG HCO3 ABG Base Excess ABG Hemoglobin Oxyhemoglobin Sodium Potassium Chloride Carbon Dioxide BUN Creatinine Glucose POC Glucose 110 H 112 H Lactic Acid Calcium Phosphorus Magnesium Direct Bilirubin AST ALT Alkaline Phosphatase Lactate Dehydrogenase Troponin T C-Reactive Protein Total Protein Albumin Prealbumin Triglycerides Cholesterol LDL Cholesterol Direct HDL Cholesterol PTH Intact Urine pH Urine WBC (Auto) Urine Creatinine Urine Total Protein Fluid Total Protein Vancomycin Trough Rheumatoid Factor Complement C4 Miscellaneous Test Crossmatch 02/14/17 02/14/17 02/15/17 08:08 17:41 04:15 WBC RBC Hgb Hct MCV MCH MCHC RDW Plt Count Lymph % (Auto) [place] % (Auto) Lymph # [place] # Baso # Seg Neutrophils % Seg Neuts % (Manual) Lymphocytes % (Manual) Monocytes % (Manual) Eosinophils % (Manual) Basophils % (Manual) Nucleated RBC % Seg Neutrophils # Seg Neutrophils # Man Lymphocytes # (Manual) Monocytes # (Manual) Eosinophils # (Manual) Basophils # (Manual) PT INR Fibrinogen dRVVT Confirm Interp Factor V Activity POC ABG pH POC ABG pCO2 POC ABG pO2 ABG pO2 ABG HCO3 ABG Base Excess ABG Hemoglobin Oxyhemoglobin Sodium Potassium Chloride Carbon Dioxide 18 L 21 L BUN 79 H 113 H Creatinine 2.1 H 2.8 H Glucose POC Glucose 118 H Lactic Acid Calcium 10.7 H Phosphorus 1.70 L D Magnesium 1.60 L Direct Bilirubin AST ALT Alkaline Phosphatase Lactate Dehydrogenase Troponin T C-Reactive Protein Total Protein Albumin Prealbumin Triglycerides Cholesterol LDL Cholesterol Direct HDL Cholesterol PTH Intact Urine pH Urine WBC (Auto) Urine Creatinine Urine Total Protein Fluid Total Protein Vancomycin Trough Rheumatoid Factor Complement C4 Miscellaneous Test Crossmatch 02/15/17 02/15/17 02/15/17 06:06 11:31 17:52 WBC RBC Hgb Hct MCV MCH MCHC RDW Plt Count Lymph % (Auto) [place] % (Auto) Lymph # [place] # Baso # Seg Neutrophils % Seg Neuts % (Manual) Lymphocytes % (Manual) Monocytes % (Manual) Eosinophils % (Manual) Basophils % (Manual) Nucleated RBC % Seg Neutrophils # Seg Neutrophils # Man Lymphocytes # (Manual) Monocytes # (Manual) Eosinophils # (Manual) Basophils # (Manual) PT INR Fibrinogen dRVVT Confirm Interp Factor V Activity POC ABG pH POC ABG pCO2 POC ABG pO2 ABG pO2 ABG HCO3 ABG Base Excess ABG Hemoglobin Oxyhemoglobin Sodium Potassium Chloride Carbon Dioxide BUN Creatinine Glucose POC Glucose 115 H 129 H 201 H Lactic Acid Calcium Phosphorus Magnesium Direct Bilirubin AST ALT Alkaline Phosphatase Lactate Dehydrogenase Troponin T C-Reactive Protein Total Protein Albumin Prealbumin Triglycerides Cholesterol LDL Cholesterol Direct HDL Cholesterol PTH Intact Urine pH Urine WBC (Auto) Urine Creatinine Urine Total Protein Fluid Total Protein Vancomycin Trough Rheumatoid Factor Complement C4 Miscellaneous Test Crossmatch 02/15/17 02/16/17 02/16/17 19:08 05:12 06:00 WBC RBC Hgb Hct MCV MCH MCHC RDW Plt Count Lymph % (Auto) [place] % (Auto) Lymph # [place] # Baso # Seg Neutrophils % Seg Neuts % (Manual) Lymphocytes % (Manual) Monocytes % (Manual) Eosinophils % (Manual) Basophils % (Manual) Nucleated RBC % Seg Neutrophils # Seg Neutrophils # Man Lymphocytes # (Manual) Monocytes # (Manual) Eosinophils # (Manual) Basophils # (Manual) PT INR Fibrinogen dRVVT Confirm Interp Factor V Activity POC ABG pH POC ABG pCO2 POC ABG pO2 ABG pO2 ABG HCO3 ABG Base Excess ABG Hemoglobin Oxyhemoglobin Sodium Potassium Chloride Carbon Dioxide BUN 74 H Creatinine 1.7 H Glucose 102 H POC Glucose 125 H Lactic Acid Calcium Phosphorus 2.10 L D Magnesium Direct Bilirubin AST ALT Alkaline Phosphatase Lactate Dehydrogenase Troponin T C-Reactive Protein Total Protein Albumin Prealbumin Triglycerides Cholesterol LDL Cholesterol Direct HDL Cholesterol PTH Intact 10.88 L Urine pH Urine WBC (Auto) Urine Creatinine Urine Total Protein Fluid Total Protein Vancomycin Trough Rheumatoid Factor Complement C4 Miscellaneous Test Crossmatch 02/16/17 02/16/17 02/16/17 12:39 17:31 23:57 WBC RBC Hgb Hct MCV MCH MCHC RDW Plt Count Lymph % (Auto) [place] % (Auto) Lymph # [place] # Baso # Seg Neutrophils % Seg Neuts % (Manual) Lymphocytes % (Manual) Monocytes % (Manual) Eosinophils % (Manual) Basophils % (Manual) Nucleated RBC % Seg Neutrophils # Seg Neutrophils # Man Lymphocytes # (Manual) Monocytes # (Manual) Eosinophils # (Manual) Basophils # (Manual) PT INR Fibrinogen dRVVT Confirm Interp Factor V Activity POC ABG pH POC ABG pCO2 POC ABG pO2 ABG pO2 ABG HCO3 ABG Base Excess ABG Hemoglobin Oxyhemoglobin Sodium Potassium Chloride Carbon Dioxide BUN Creatinine Glucose POC Glucose 109 H 106 H 127 H Lactic Acid Calcium Phosphorus Magnesium Direct Bilirubin AST ALT Alkaline Phosphatase Lactate Dehydrogenase Troponin T C-Reactive Protein Total Protein Albumin Prealbumin Triglycerides Cholesterol LDL Cholesterol Direct HDL Cholesterol PTH Intact Urine pH Urine WBC (Auto) Urine Creatinine Urine Total Protein Fluid Total Protein Vancomycin Trough Rheumatoid Factor Complement C4 Miscellaneous Test Crossmatch 02/17/17 02/17/17 05:30 06:00 WBC RBC Hgb Hct MCV MCH MCHC RDW Plt Count Lymph % (Auto) [place] % (Auto) Lymph # [place] # Baso # Seg Neutrophils % Seg Neuts % (Manual) Lymphocytes % (Manual) Monocytes % (Manual) Eosinophils % (Manual) Basophils % (Manual) Nucleated RBC % Seg Neutrophils # Seg Neutrophils # Man Lymphocytes # (Manual) Monocytes # (Manual) Eosinophils # (Manual) Basophils # (Manual) PT INR Fibrinogen dRVVT Confirm Interp Factor V Activity POC ABG pH POC ABG pCO2 POC ABG pO2 ABG pO2 ABG HCO3 ABG Base Excess ABG Hemoglobin Oxyhemoglobin Sodium Potassium Chloride Carbon Dioxide BUN 94 H Creatinine 2.3 H Glucose 106 H POC Glucose 122 H Lactic Acid Calcium Phosphorus Magnesium Direct Bilirubin AST ALT Alkaline Phosphatase Lactate Dehydrogenase Troponin T C-Reactive Protein Total Protein Albumin Prealbumin Triglycerides Cholesterol LDL Cholesterol Direct HDL Cholesterol PTH Intact Urine pH Urine WBC (Auto) Urine Creatinine Urine Total Protein Fluid Total Protein Vancomycin Trough Rheumatoid Factor Complement C4 Miscellaneous Test Crossmatch CT scan - chest: image reviewed Allied health notes reviewed: RT (Has been on PS 15/5, no desaturations today)
[2017-02-17] MEDS: HEPARIN IV PRN (13:28)
[2017-02-17] MEDS: CORDARONE 900 MG in D5W 482 ML IV SCH (13:50)
--- NOTE | 2017-02-17 15:48 | Progress Note ---
Assessment and Plan Assessment and plan: Patient is 46-year-old woman with a history of hypertension, diabetes, asthma, hyperlipidemia, chronic kidney disease and anxiety , who was brought in by family because, she couldn't get her words out, her face was also twisted, she was admitted for acute CVA and accelerated hypertension, she had a hx of poor adherence with her medications, and uncontrolled htn. Patient's SBP on admission was noted be greater than 260. TPA was started but this was discontinued after 5 minutes because her blood pressure became uncontrolled. The TPA was not initiated again because the patient was outside the TPA window. Bowel P Status post cardiac arrest , 11/21/16 on Mechanical ventilation >96 hrs - Received CPR and was resuscitated. - Patient is on amiodarone. Fever - resolved - Patient was initially treated with Abx - s/p R thoracentesis on 11/14, 240cc of serous fluid removed, cx of fluid was negative - Stool negative for C. difficile Severe Sepsis with septic shock - Patient has episode of fever and leukocytosis -Recurrent Leukocytosis, with Meropenem restarted, due to continued sacral decubitus. Surgical wound infection/gram-negative sepsis/candidemia/peritonitis - On TPN JUANITA, ESRD - discussed with Dr Wadsworth - on HD - Cr 1.9 today Acute CVA with infarct - Neurology input appreciated - CT shows continued evolution of left MCA infarct with slight mass effect and edema, and there is no hemorrhage - PRINCE showed hyperdynamic with ef of 75%, neither clot nor septal defect seen - MRA Brain shows near complete occlusion of M2 and M3 of the left MCA - Repeat CT scan done on 09/11, shows stable findings - carotid doppler negative - Echo shows preserved systolic function but does show some left ventricular diastolic dysfunction - continue asa and statin Persistent vegetative state - This patient's needs placement at SNF - She was denied for LTACH Acute hypoxic respiratory failure requiring MV >96hrs - Status post tracheostomy, was on T piece Nosocomial acquired aspiration pneumonia/sepsis/UTI - Finished a course of antibiotics Asthma/COPD exacerbation - ON trach, mechanical ventilation >96 hrs Status Post CVA Bilateral pleural effusion, s/p right thoracentesis A. fib with RVR Diabetes type 2. Continue sliding-scale regular insulin and Accu-Cheks. Hyperlipidemia. Continue statin Nutrition - TPN Anemia requiring multiple transfusions/acute blood loss - currently stable - Check AM labs - Will transfuse if it is below 7 Sacral decubitus ulcer - Status post debridement Disposition. Very poor prognosis. Ethics consult has been placed, will await there input. Cannot reach family, multiple calls placed. Nursing staff on the look out for family and will notify physician. 02/12/17: Persistent vomiting. Patient clinically unchanged since my last visit. CT abdomen obtained, shows possible bowel perforation. I discussed with Surgeon and we individually spoke to family. Patients son and brother do not want any surgery, they will like her comfortable but no hospice and no Resuscitation efforts. Patient made DNR Per family request. Nursing staff notified. 02/16/17: Acute on chronic Hypoxic Respiratory failure Afib with RVR-Improved on amiodarone drip, will continue. will switch to PO once of the vent or you need a trachy Peforated Abdomen ESRD SHOCK LIKE STATE improved with fludis and amiodarone. * Reduce pain medication use * complex infectious process cannot be ruled out, will continue to monitor. Doubt utility of Abx at this time considering lack of curative measures. will discuss with ID. Hypophos/hypomag. * Replaced. * Remains critically ill. Continue supportive care * Poor prognosis communicated to family. * No surgical intervention at this time - The high probability of a clinically significant, sudden or life threatening deterioration of the [neurologic, CV] system(s) required my full and direct attention, intervention and personal management. The aggregate critical care time was [35] minutes. This time is in addition to time spent performing reported procedures but includes the following: [x] Data Review and interpretation [x] Patient assessment and monitoring of vital signs [x] Documentation [x] Medication orders and management History Interval history: patient seen and examined, remains unresponsive on the ventilator. still with increased output on OGT. Hospitalist Physical - Physical exam Narrative exam: GEN: Ill appearing, trach, staring into space,, non purposeful movement NECK: SUPPLE, trach in place, ngt in place and to suction. CVS:Irregular Irregular with LUNGS/CHEST: NORMAL CHEST EXPANSION B, GOOD AIR ENTRY B, tachypena ABD: SOFT, no grimise on abdominal palpation, Ostomy bags at two side by side fistula site. GBS, NO REBOUND OR GUARDING, peg tube in place EXT/SKIN: NO SIGNIFICANT EDEMA BUT WITH UNSTAGEABLE SACRAL DECUB, wound vac inplace MSK: +spontaneous non purposeful movement NEURO: on a ventilator and unresponsive despite being off sedation PSY: Comatose, - Constitutional Vitals: Temp Pulse Resp BP Pulse Ox 99.9 F H 90 26 H 118/72 99 02/17/17 09:55 02/17/17 14:45 02/17/17 14:45 02/17/17 14:35 02/17/17 14:35 General appearance: Present: no acute distress, well-nourished Results - Labs CBC & Chem 7: 02/14/17 08:08 02/17/17 06:00 Labs: Laboratory Last Values WBC 15.2 K/mm3 (4.5-11.0) H 02/14/17 08:08 RBC 2.97 M/mm3 (3.65-5.03) L 02/14/17 08:08 Hgb 8.1 gm/dl (10.1-14.3) L 02/14/17 08:08 Hct 26.3 % (30.3-42.9) L 02/14/17 08:08 MCV 89 fl (79-97) 02/14/17 08:08 MCH 28 pg (28-32) 02/14/17 08:08 MCHC 31 % (30-34) 02/14/17 08:08 RDW 19.3 % (13.2-15.2) H 02/14/17 08:08 Plt Count 311 K/mm3 (140-440) 02/14/17 08:08 Lymph % (Auto) 19.3 % (13.4-35.0) 02/05/17 09:59 [place] % (Auto) 9.2 % (0.0-7.3) H 02/05/17 09:59 Eos % (Auto) 1.8 % (0.0-4.3) 02/05/17 09:59 Baso % (Auto) 0.5 % (0.0-1.8) 02/05/17 09:59 Lymph # 2.0 K/mm3 (1.2-5.4) 02/05/17 09:59 [place] # 0.9 K/mm3 (0.0-0.8) H 02/05/17 09:59 Eos # 0.2 K/mm3 (0.0-0.4) 02/05/17 09:59 Baso # 0.0 K/mm3 (0.0-0.1) 02/05/17 09:59 Add Manual Diff Complete 12/19/16 05:02 Total Counted 100 12/19/16 05:02 Seg Neutrophils % 69.2 % (40.0-70.0) 02/05/17 09:59 Seg Neuts % (Manual) 64.0 % (40.0-70.0) 12/19/16 05:02 Band Neutrophils % 15.0 % 12/19/16 05:02 Lymphocytes % (Manual) 13.0 % (13.4-35.0) L 12/19/16 05:02 Reactive Lymphs % (Man) 0 % 12/19/16 05:02 Monocytes % (Manual) 7.0 % (0.0-7.3) 12/19/16 05:02 Eosinophils % (Manual) 0 % (0.0-4.3) 12/19/16 05:02 Basophils % (Manual) 1.0 % (0.0-1.8) 12/19/16 05:02 Metamyelocytes % 0 % 12/19/16 05:02 Myelocytes % 0 % 12/19/16 05:02 Promyelocytes % 0 % 12/19/16 05:02 Blast Cells % 0 % 12/19/16 05:02 Nucleated RBC % 1.0 % (0.0-0.9) H 12/19/16 05:02 Seg Neutrophils # 7.1 K/mm3 (1.8-7.7) 02/05/17 09:59 Seg Neutrophils # Man 12.9 K/mm3 (1.8-7.7) H 12/19/16 05:02 Band Neutrophils # 3.0 K/mm3 12/19/16 05:02 Lymphocytes # (Manual) 2.6 K/mm3 (1.2-5.4) 12/19/16 05:02 Abs React Lymphs (Man) 0.0 K/mm3 12/19/16 05:02 Monocytes # (Manual) 1.4 K/mm3 (0.0-0.8) H 12/19/16 05:02 Eosinophils # (Manual) 0.0 K/mm3 (0.0-0.4) 12/19/16 05:02 Basophils # (Manual) 0.2 K/mm3 (0.0-0.1) H 12/19/16 05:02 Metamyelocytes # 0.0 K/mm3 12/19/16 05:02 Myelocytes # 0.0 K/mm3 12/19/16 05:02 Promyelocytes # 0.0 K/mm3 12/19/16 05:02 Blast Cells # 0.0 K/mm3 12/19/16 05:02 Pathologist Review 09/13/16 04:00 WBC Morphology Not Reportable 12/19/16 05:02 Hypersegmented Neuts Not Reportable 12/19/16 05:02 Hyposegmented Neuts Not Reportable 12/19/16 05:02 Hypogranular Neuts Not Reportable 12/19/16 05:02 Smudge Cells Not Reportable 12/19/16 05:02 Toxic Granulation Not Reportable 12/19/16 05:02 Toxic Vacuolation Not Reportable 12/19/16 05:02 Dohle Bodies Not Reportable 12/19/16 05:02 Pelger-Huet Anomaly Not Reportable 12/19/16 05:02 Jasmina Rods Not Reportable 12/19/16 05:02 Platelet Estimate Consistent w auto 12/19/16 05:02 Clumped Platelets Not Reportable 12/19/16 05:02 Plt Clumps, EDTA Not Reportable 12/19/16 05:02 Large Platelets Not Reportable 12/19/16 05:02 Giant Platelets Not Reportable 12/19/16 05:02 Platelet Satelliting Not Reportable 12/19/16 05:02 Plt Morphology Comment Not Reportable 12/19/16 05:02 RBC Morphology Not Reportable 12/19/16 05:02 Dimorphic RBCs Not Reportable 12/19/16 05:02 Polychromasia Not Reportable 12/19/16 05:02 Hypochromasia Not Reportable 12/19/16 05:02 Poikilocytosis Not Reportable 12/19/16 05:02 Anisocytosis Not Reportable 12/19/16 05:02 Microcytosis Not Reportable 12/19/16 05:02 Macrocytosis Not Reportable 12/19/16 05:02 Spherocytes Not Reportable 12/19/16 05:02 Pappenheimer Bodies Not Reportable 12/19/16 05:02 Sickle Cells Not Reportable 12/19/16 05:02 Target Cells Few 12/19/16 05:02 Tear Drop Cells Not Reportable 12/19/16 05:02 Ovalocytes Not Reportable 12/19/16 05:02 Stomatocytes Rare 12/03/16 04:00 Helmet Cells Not Reportable 12/19/16 05:02 [place] Bodies Not Reportable 12/19/16 05:02 [place] Rings Not Reportable 12/19/16 05:02 [place] Cells Not Reportable 12/19/16 05:02 Bite Cells Not Reportable 12/19/16 05:02 Crenated Cell Not Reportable 12/19/16 05:02 Elliptocytes Not Reportable 12/19/16 05:02 Acanthocytes (Spur) Not Reportable 12/19/16 05:02 Rouleaux Not Reportable 12/19/16 05:02 Hemoglobin C Crystals Not Reportable 12/19/16 05:02 Schistocytes Not Reportable 12/19/16 05:02 Malaria parasites Not Reportable 12/19/16 05:02 ESR > 140.0 mm/Hr (0-20) 09/08/16 11:48 Jun Bodies Not Reportable 12/19/16 05:02 Hem Pathologist Commnt No 12/19/16 05:02 PT 15.4 Sec. (12.2-14.9) H 01/13/17 15:50 INR 1.16 (0.87-1.13) H 01/13/17 15:50 APTT 33.0 Sec. (24.2-36.6) 10/09/16 03:45 Thrombin Time 16.8 Sec. (15.1-19.6) 09/03/16 00:10 Fibrinogen 750 mg/dl (211-480) H 09/08/16 11:48 Lupus Anticoagulant see below 09/12/16 09:59 LA PTT Baseline See scanned report 09/12/16 09:59 dRVVT Confirm Interp Positive (Negative) H 09/12/16 09:59 dRVVT Screen 50:50 See scanned report 09/12/16 09:59 dRVVT Mix Interpret See scanned report 09/12/16 09:59 Protein C Antigen 122 % (70-140) 09/08/16 15:35 Free Protein S 97 % normal (50-147) 09/08/16 15:35 Total Protein S 109 % (70-140) 09/08/16 15:35 Antithrombin III Ag 100 % (80-120) 09/08/16 15:35 Heparin Anti-Xa, Unfract Negative (Negative) 09/29/16 13:35 Factor V Activity 182 % (65-150) H 09/08/16 15:35 POC ABG pH 7.436 (7.35-7.45) 01/20/17 12: ABG pH 7.450 pH Units (7.350-7.450) 12/05/16 Unknown POC ABG pCO2 35.3 (35-45) 01/20/17 12: ABG pCO2 29.6 mm Hg 12/05/16 Unknown POC ABG pO2 70 (80-105) L 01/20/17 12: ABG pO2 75.2 mm Hg (80.0-90.0) L 12/05/16 Unknown POC ABG HCO3 23.8 01/20/17 12: ABG HCO3 20.1 mmol/L (20.0-26.0) 12/05/16 Unknown POC ABG Total CO2 25 01/20/17 12:17 POC ABG O2 Sat 94 01/20/17 12: ABG O2 Saturation 96.8 % (95.0-99.0) 12/05/16 Unknown ABG O2 Content 9.9 (0.0-44) 12/05/16 Unknown POC ABG Base Excess 0 01/20/17 12: ABG Base Excess -3.4 mmol/L (-2.0-3.0) L 12/05/16 Unknown ABG Hemoglobin 7.4 gm/dl (12.0-16.0) L 12/05/16 Unknown ABG Carboxyhemoglobin 1.8 % (0.0-5.0) 12/05/16 Unknown ABG Methemoglobin 0.6 % (0.0-1.5) 12/05/16 Unknown Oxyhemoglobin 94.5 % (95.0-99.0) L 12/05/16 Unknown FiO2 30 % 01/20/17 12:17 Sodium 138 mmol/L (137-145) 02/17/17 06:00 Potassium 3.9 mmol/L (3.6-5.0) 02/17/17 06:00 Chloride 99.9 mmol/L (98-107) 02/17/17 06:00 Carbon Dioxide 23 mmol/L (22-30) 02/17/17 06:00 Anion Gap 19 mmol/L 02/17/17 06:00 BUN 94 mg/dL (7-17) H 02/17/17 06:00 Creatinine 2.3 mg/dL (0.7-1.2) H 02/17/17 06:00 Estimated GFR 28 ml/min 02/17/17 06:00 BUN/Creatinine Ratio 41 % 02/17/17 06:00 Glucose 106 mg/dL (65-100) H 02/17/17 06:00 POC Glucose 173 (70-105) H 02/17/17 12:17 Osmolality 351 Mosm/kg 09/16/16 11:47 Lactic Acid 2.30 mmol/L (0.7-2.0) H* 01/09/17 08:22 Calcium 10.2 mg/dL (8.4-10.2) 02/17/17 06:00 Phosphorus 3.30 mg/dL (2.5-4.5) D 02/17/17 06:00 Magnesium 2.00 mg/dL (1.7-2.3) 02/17/17 06:00 Total Bilirubin 0.40 mg/dL (0.1-1.2) 02/06/17 04:45 Direct Bilirubin 0.2 mg/dL (0-0.2) 01/28/17 04:00 Indirect Bilirubin 0.3 mg/dL 01/28/17 04:00 AST 29 units/L (5-40) 02/06/17 04:45 ALT 26 units/L (7-56) 02/06/17 04:45 Alkaline Phosphatase 199 units/L (35-129) H 02/06/17 04:45 Ammonia 27.0 umol/L (25-60) 09/07/16 08:37 Lactate Dehydrogenase 170 units/L (91-180) 01/13/17 15:50 Total Creatine Kinase 121 units/L (30-135) 09/29/16 20:12 CK-MB (CK-2) < 1.0 ng/mL (0.0-4.0) 09/29/16 20:12 CK-MB (CK-2) Rel Index 0.8 (0-4) 09/29/16 20:12 Troponin T 0.204 ng/mL (0.00-0.029) H* 09/29/16 20:12 C-Reactive Protein 8.10 mg/dL (0.00-1.30) H 01/31/17 11:12 Total Protein 6.7 g/dL (6.3-8.2) 02/06/17 04:45 Albumin 1.4 g/dL (3.9-5) L 02/06/17 04:45 Albumin/Globulin Ratio 0.3 % 02/06/17 04:45 Prealbumin 0.110 g/L (0.200-0.400) L 12/29/16 05:15 Triglycerides 55 mg/dL (2-149) 02/06/17 04:45 Cholesterol 31 mg/dL (50-199) L 09/29/16 20:12 LDL Cholesterol Direct 4 mg/dL (50-130) L 09/29/16 20:12 HDL Cholesterol 3 mg/dL (40-59) L 09/29/16 20:12 Cholesterol/HDL Ratio 10.33 % 09/29/16 20:12 Angiotensin Convert Enz See scanned report 09/08/16 11:48 Renin 0.99 ng/mL/h (0.25-5.82) 10/07/16 10:56 Aldosterone <1 ng/dL () 10/07/16 10:56 Aldosterone/Renin Dir see below 10/07/16 10:56 Serotonin Release Assay See scanned report 09/29/16 13:35 TSH 1.010 mlU/mL (0.270-4.200) 09/07/16 08:37 HCG, Qual Negative (Negative) 09/03/16 00:10 PTH Intact 10.88 pg/mL (15-65) L 02/15/17 19:08 Total Cortisol 18.2 mcg/dL () 02/02/17 20:09 Urine Color Yellow (Yellow) 11/05/16 13:09 Urine Turbidity Clear (Clear) 11/05/16 13:09 Urine pH 9.0 (5.0-7.0) H 11/05/16 13:09 Ur Specific [place] 1.011 (1.003-1.030) 11/05/16 13:09 Urine Protein 100 mg/dl mg/dL (Negative) 11/05/16 13:09 Urine Glucose (UA) Neg mg/dL (Negative) 11/05/16 13:09 Urine Ketones Neg mg/dL (Negative) 11/05/16 13:09 Urine Blood Neg (Negative) 11/05/16 13:09 Urine Nitrite Neg (Negative) 11/05/16 13:09 Urine Bilirubin Neg (Negative) 11/05/16 13:09 Urine Urobilinogen < 2.0 mg/dL (<2.0) 11/05/16 13:09 Ur Leukocyte Esterase Neg (Negative) 11/05/16 13:09 Urine WBC (Auto) 4.0 /HPF (0.0-6.0) 11/05/16 13:09 Urine RBC (Auto) 1.0 /HPF (0.0-6.0) 11/05/16 13:09 U Epithel Cells (Auto) 1.0 /HPF (0-13.0) 10/07/16 18:30 Urine Bacteria (Auto) 4+ /HPF (Negative) 11/05/16 13:09 Urine WBC Clumps 2+ /HPF 09/07/16 02:47 Hyaline Casts 4 /LPF 09/07/16 02:47 Urine Mucus Few /HPF 10/07/16 18:30 Urine Yeast (Budding) 3+ /HPF 10/07/16 18:30 Urine Eosinophils None seen (None Seen) 09/07/16 16:00 Urine Total Volume 950 11/12/16 10:18 Urine Creatinine 19.7 mg/dL (0.1-20.0) 11/12/16 10:18 Height (in) 65.0 inches 11/12/16 10:18 Weight (lb) 181.0 lbs 11/12/16 10:18 Creatinine Clearance 5 11/12/16 10:18 Urine Sodium 36 mEq/L 09/16/16 19:19 Urine Total Protein 16 mg/dL (5-11.8) H 09/16/16 19:19 Fluid Type Pleural 01/13/17 12:10 Fluid Color Yellow 01/13/17 12:10 Fluid Appearance Hazy 01/13/17 12:10 Fluid WBC 182 /mm3 01/13/17 12:10 Fluid RBC 41 /mm3 01/13/17 12:10 Fluid Seg Neutrophils 85.0 % 01/13/17 12:10 Fluid Lymphocytes 8.0 % 01/13/17 12:10 Fluid Reactive Lymphs 0 % 01/13/17 12:10 Fluid Monocytes 6.0 % 01/13/17 12:10 Fluid Eosinophils 1.0 % 01/13/17 12:10 Fluid Basophils 0 % 01/13/17 12:10 Fluid Total Protein 3.0 (15.0-45.0) L 01/13/17 12:10 Fluid LDH 1322 01/13/17 12:10 Fluid Comment Diff performed 01/13/17 12:10 Vancomycin Trough 2.3 ug/mL (5.0-20.0) L 09/21/16 13:00 Random Vancomycin 16.5 ug/mL (0-40.0) 11/28/16 09:45 Urine Opiates Screen Presumptive negative 09/03/16 15:11 Urine Methadone Screen Presumptive positive 09/03/16 15:11 Ur Barbiturates Screen Presumptive positive 09/03/16 15:11 Ur Phencyclidine Scrn Presumptive negative 09/03/16 15:11 Ur Amphetamines Screen Presumptive negative 09/03/16 15:11 U Benzodiazepines Scrn Presumptive negative 09/03/16 15:11 Urine Cocaine Screen Presumptive negative 09/03/16 15:11 U Marijuana (THC) Screen Presumptive positive 09/03/16 15:11 Drugs of Abuse Note Disclamer 09/03/16 15:11 Rheumatoid Factor 24 IU/ml (0-13) H 09/08/16 11:48 SAHIL Screen Negative (Negative) 09/07/16 09:20 Proteinase 3 (PR3) Ab <1.0 AI (<1.0) 09/07/16 09:20 Myeloperoxidase Ab <1.0 AI (<1.0) 09/07/16 09:20 Sjogren's Antibody <1.0 AI (<1.0) 09/08/16 15:35 Scl-70 Scleroderma Ab <1.0 AI (<1.0) 09/08/16 15:35 Centromere B Antibody <1.0 AI (<1.0) 09/08/16 12:02 Heparin-induced Plt Ab Negative (Negative) 09/29/16 13:35 UF Heparin High Dose 11 % Release 09/29/16 13:35 SUDHIR UFH Low Dose 0.1 6 % Release 09/29/16 13:35 SUDHIR UFH Low Dose 0.5 8 % Release 09/29/16 13:35 Cardiolipid IgG Ab <14 GPL (<=14) 09/12/16 09:59 Cardiolipid IgA Ab <11 APL (<=11) 09/12/16 09:59 Cardiolipid IgM Ab <12 MPL (<=12) 09/12/16 09:59 Complement C3 148 mg/dL (90-180) 09/07/16 09:20 Complement C4 58 mg/dL (16-47) H 09/07/16 09:20 RPR Nonreactive (Nonreactive) 09/08/16 11:48 Hepatitis A IgM Ab Non-reactive (NonReactive) 09/24/16 14:40 Hep Bs Antigen Non-reactive (Negative) 09/24/16 14:40 Hep B Core IgM Ab Non-reactive (NonReactive) 09/24/16 14:40 Hepatitis C Antibody Non-reactive (NonReactive) 09/24/16 14:40 HIV 1&2 Antibody Rapid Non react (Non React) 09/08/16 11:48 HIV P24 Antigen Non react (Non React) 09/08/16 11:48 Miscellaneous Test Flexitest 1 H 01/09/17 18:45 Blood Type A POSITIVE 02/12/17 10:25 Antibody Screen Negative 02/12/17 10:25 DELORIS Antibody Screen Negative 11/24/16 11:20 Crossmatch See Detail 02/12/17 10:25
[2017-02-17] MEDS ORDERED: TPN ADULT IV SCH (20:00)
[2017-02-17] MEDS ORDERED: INTRALIPID 20% 250 ML IV SCH (20:00)
[2017-02-17] MEDS: TAZICEF IV SCH (21:17)
[2017-02-17] MEDS: NACL 0.9% IV SCH (21:17)
[2017-02-18] MEDS: REGLAN IV SCH ×3 (05:21→21:03)
[2017-02-18] MEDS: FLAGYL 500 MG/100 ML 500 MG/100 ML BAG IV SCH ×3 (05:21→21:02)
[2017-02-18 06:23] LABS: Calcium 9.4 mg/dL (8.4-10.2)
[2017-02-18] MEDS: HumuLIN R SUB-Q SCH ×4 (06:27→18:00)
[2017-02-18] MEDS: DUONEB *Not for PRN Use IH SCH ×3 (08:36→19:31)
[2017-02-18 10:02] LABS: Basophils % (Auto) 0.3 % (0.0-1.8); Eosinophils # (Auto) 0.1 K/mm3 (0.0-0.4); Eosinophils % (Auto) 0.7 % (0.0-4.3); Hematocrit 23.9 % (30.3-42.9); Hemoglobin 7.6 gm/dl (10.1-14.3); Lymphocytes # (Auto) 2.4 K/mm3 (1.2-5.4); Lymphocytes % (Auto) 18.5 % (13.4-35.0); Mean Corpuscular HGB Conc 32 % (30-34); Mean Corpuscular Hemoglobin 28 pg (28-32); Mean Corpuscular Volume 87 fl (79-97); Monocytes # (Auto) 1.5 K/mm3 (0.0-0.8); Monocytes % (Auto) 11.1 % (0.0-7.3); Platelet Count 254 K/mm3 (140-440); Red Blood Count 2.77 M/mm3 (3.65-5.03)
[2017-02-18] MEDS: PROTONIX FEEDTUBE SCH (11:37)
[2017-02-18] MEDS: ROBINUL PO SCH ×2 (11:37→21:03)
[2017-02-18] MEDS: MAG-OX PO SCH (11:37)
--- NOTE | 2017-02-18 11:40 | Progress Note ---
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 UF as tolerated. Patient's serum creatinine is noted to be low - due to wasting of muscle mass. Needs to be maintained on dialysis at this time. * hypercalcemia work up - likely due to immobilization * Adjust Ca bath with dialysis * Transfuse pRBC per primary team. Epogen TIW prn * Vent management per pulm/CCM * Pressors prn for MAP>65 * Dose medications for renal function Subjective Date of service: 02/18/17 Principal diagnosis: Acute resp failure on MVS; S/P Acute CVA; Acute Encephalopathy; JUANITA Interval history: new events from last pm noted Objective - Exam Narrative Exam: Gen. appearance: Patient lying in bed, no apparent distress, 4. restraints HEENT: Normocephalic, atraumatic, pupils equally round and reactive to light, extraocular movement intact, and no sclericterus,. No JVD or thyromegaly or nodule,neck supple, no carotid bruit ,mucous membranes moist, unable to examine oral cavity Heart: S1, S2, regular rate and rhythm Lungs: Clear to auscultation bilaterally, breathing comfortable Abdomen: Positive bowel sounds, nontender, nondistended, no organomegaly Extremity: No edema, cyanosis, clubbing Skin: No rash, nodules, warm, dry Neuro: Difficult to assess, facial droop, moves all 4 extremities - Vital Signs Vital signs: Vital Signs - 12hr 02/17/17 02/17/17 02/17/17 23:45 23:55 23:59 Temperature Pulse Rate 95 H 99 H Respiratory 17 24 Rate Blood Pressure 124/70 124/70 O2 Sat by Pulse 100 98 98 Oximetry O2 Sat by Pulse Oximetry [ Assessment] 02/18/17 02/18/17 02/18/17 00:00 00:15 00:31 Temperature 98.2 F Pulse Rate 100 H 102 H 98 H Respiratory 24 25 H 19 Rate Blood Pressure 130/80 130/80 130/80 O2 Sat by Pulse 98 99 98 Oximetry O2 Sat by Pulse Oximetry [ Assessment] 02/18/17 02/18/17 02/18/17 00:45 01:01 01:15 Temperature Pulse Rate 99 H 99 H 102 H Respiratory 26 H 20 31 H Rate Blood Pressure 130/80 125/74 125/74 O2 Sat by Pulse 98 99 93 Oximetry O2 Sat by Pulse Oximetry [ Assessment] 02/18/17 02/18/17 02/18/17 01:30 01:45 02:01 Temperature Pulse Rate 89 97 H 91 H Respiratory 15 22 20 Rate Blood Pressure 125/74 125/74 131/73 O2 Sat by Pulse 98 98 98 Oximetry O2 Sat by Pulse Oximetry [ Assessment] 02/18/17 02/18/17 02/18/17 02:15 02:31 02:45 Temperature Pulse Rate 100 H 98 H 96 H Respiratory 16 21 19 Rate Blood Pressure 131/73 131/73 131/73 O2 Sat by Pulse 93 98 100 Oximetry O2 Sat by Pulse Oximetry [ Assessment] 02/18/17 02/18/17 02/18/17 03:01 03:15 03:31 Temperature Pulse Rate 99 H 101 H 96 H Respiratory 18 23 21 Rate Blood Pressure 144/77 144/77 144/77 O2 Sat by Pulse 98 97 97 Oximetry O2 Sat by Pulse Oximetry [ Assessment] 02/18/17 02/18/17 02/18/17 03:45 04:00 04:01 Temperature 98.2 F Pulse Rate 94 H 100 H Respiratory 34 H 28 H Rate Blood Pressure 144/77 118/69 O2 Sat by Pulse 88 98 83 L Oximetry O2 Sat by Pulse Oximetry [ Assessment] 02/18/17 02/18/17 02/18/17 04:15 04:23 04:27 Temperature Pulse Rate 97 H 94 H Respiratory 32 H Rate Blood Pressure 118/69 118/69 O2 Sat by Pulse 77 L 100 Oximetry O2 Sat by Pulse 100 Oximetry [ Assessment] 02/18/17 02/18/17 02/18/17 04:31 04:45 05:01 Temperature Pulse Rate 97 H 100 H 115 H Respiratory 22 25 H 27 H Rate Blood Pressure 118/69 118/69 163/97 O2 Sat by Pulse 100 93 99 Oximetry O2 Sat by Pulse Oximetry [ Assessment] 02/18/17 02/18/17 02/18/17 05:15 05:31 05:45 Temperature Pulse Rate 109 H 113 H 111 H Respiratory 20 36 H 39 H Rate Blood Pressure 163/97 163/97 163/97 O2 Sat by Pulse 100 99 99 Oximetry O2 Sat by Pulse Oximetry [ Assessment] 02/18/17 02/18/17 02/18/17 06:01 06:15 06:31 Temperature Pulse Rate 107 H 105 H 103 H Respiratory 20 43 H 42 H Rate Blood Pressure 137/78 137/78 137/78 O2 Sat by Pulse 100 100 100 Oximetry O2 Sat by Pulse Oximetry [ Assessment] 02/18/17 02/18/17 02/18/17 06:45 07:01 07:15 Temperature Pulse Rate 103 H 102 H 102 H Respiratory 25 H 23 25 H Rate Blood Pressure 137/78 138/85 138/85 O2 Sat by Pulse 100 100 100 Oximetry O2 Sat by Pulse Oximetry [ Assessment] 02/18/17 02/18/17 02/18/17 07:31 07:45 08:00 Temperature 99.0 F Pulse Rate 101 H 101 H Respiratory 24 42 H Rate Blood Pressure 138/85 138/85 O2 Sat by Pulse 100 100 Oximetry O2 Sat by Pulse Oximetry [ Assessment] 02/18/17 02/18/17 02/18/17 08:01 08:15 08:31 Temperature Pulse Rate 99 H 102 H 100 H Respiratory 23 18 24 Rate Blood Pressure 131/81 131/81 131/81 O2 Sat by Pulse 99 100 97 Oximetry O2 Sat by Pulse Oximetry [ Assessment] 02/18/17 02/18/17 02/18/17 08:35 08:45 09:01 Temperature Pulse Rate 110 H 103 H 109 H Respiratory 31 H 43 H Rate Blood Pressure 131/81 131/81 129/75 O2 Sat by Pulse 100 100 94 Oximetry O2 Sat by Pulse Oximetry [ Assessment] - Lab 02/18/17 09:51 02/18/17 05:30 Most recent lab results ABG pH 7.450 pH Units (7.350-7.450) 12/05/16 Unknown ABG pCO2 29.6 mm Hg 12/05/16 Unknown ABG pO2 75.2 mm Hg (80.0-90.0) L 12/05/16 Unknown ABG HCO3 20.1 mmol/L (20.0-26.0) 12/05/16 Unknown ABG O2 Saturation 96.8 % (95.0-99.0) 12/05/16 Unknown Calcium 9.4 mg/dL (8.4-10.2) 02/18/17 05:30 Phosphorus 2.80 mg/dL (2.5-4.5) 02/18/17 05:30 Magnesium 2.00 mg/dL (1.7-2.3) 02/17/17 06:00 Urine Creatinine 19.7 mg/dL (0.1-20.0) 11/12/16 10:18 Urine Sodium 36 mEq/L 09/16/16 19:19 Urine Total Protein 16 mg/dL (5-11.8) H 09/16/16 19:19
[2017-02-18] MEDS: HEPARIN SUB-Q SCH ×2 (11:46→21:03)
[2017-02-18] MEDS: DIFLUCAN 200 MG/100 ML BAG IV SCH (11:46)
--- NOTE | 2017-02-18 15:38 | Progress Note ---
Assessment and Plan Acute Hypoxemic Respiratory Failure (now with exacerbation and back on MVS) Hypertension (unable to receive p.o. meds) Atrial Fibrillation with RVR s/p tracheostomy Acute encephalopathy s/p CVA Oropharyngeal dysphagia Enterococcal bacteremia sepsis syndrome Sacral Decubitus Ulcer (s/p surgical debridement) Anemia Obesity JUANITA now on hemodialysis Enteric Fistula (Surgical options discussed with POA and they have decided against surgery) - continue to hold tube feeds due to continued intolerance; continue reglan at 10mg IV q8h - continue NGT to LIS - IR earlier consulted for G-J tube (not a good candidate for G-J Tube per IR) - remains on amiodarone drip for persistent tachycardia (improving) - Pleural fluid cultures negative - unfortunately not a good candidate for a VATS procedure - prn CXR's - appreciate surgery input - continue fentanyl patch for pain issues especially s/p debridement - continue wound care per WCT and RN's (she is s/p surgical debridement) - continue anti-infectives per ID recs ( now) - prn CRP & lactate levels if clinically indicated (Follow WBC also) - keep on with daily PSV trials and / or T-piece as tolerated - continue TPN administration - continue scopolamine for secretion control - continue to wean FiO2 for sats > 94% - continue bronchodilators and pulmonary toilet - VAP bundle addressed - continue prn IV metoprolol (5mg IV q4h) - continue metoprolol and amlodipine (hold for hypotension) - continue to follow electrolytes and correct as necessary - continue GI & VTE prophylaxis - Continue flu & pneumovax per protocol - ethics consult placed and pending .....she remains critically ill on life sustaining interventions including MVS and at risk for further deterioration including ....30' CCT ....care plan discussed at length during team rounds ...nursing home prognosis remains guarded and this has intermittently been conveyed to family Subjective Date of service: 02/18/17 Principal diagnosis: Acute resp failure on MVS; S/P Acute CVA; Acute Encephalopathy; JUANITA Interval history: Patient is seen today for: Acute resp failure on MVS; S/P Acute CVA; Acute Encephalopathy; JUANITA Seen and examined at bedside; 24hour events reviewed; nursing and respiratory care staff consulted; no adverse overnight events reported to me; remains on MVS ; HD/UF ongoing; On graded PSV trial at Psupp 16/5; AMS is persistent; NGT to LIS and no vomiting Objective Vital Signs - 12hr 02/18/17 02/18/17 02/18/17 03:45 04:00 04:01 Temperature 98.2 F Pulse Rate 94 H 100 H Respiratory 34 H 28 H Rate Blood Pressure 144/77 118/69 O2 Sat by Pulse 88 98 83 L Oximetry O2 Sat by Pulse Oximetry [ Assessment] 02/18/17 02/18/17 02/18/17 04:15 04:23 04:27 Temperature Pulse Rate 97 H 94 H Respiratory 32 H Rate Blood Pressure 118/69 118/69 O2 Sat by Pulse 77 L 100 Oximetry O2 Sat by Pulse 100 Oximetry [ Assessment] 02/18/17 02/18/17 02/18/17 04:31 04:45 05:01 Temperature Pulse Rate 97 H 100 H 115 H Respiratory 22 25 H 27 H Rate Blood Pressure 118/69 118/69 163/97 O2 Sat by Pulse 100 93 99 Oximetry O2 Sat by Pulse Oximetry [ Assessment] 02/18/17 02/18/17 02/18/17 05:15 05:31 05:45 Temperature Pulse Rate 109 H 113 H 111 H Respiratory 20 36 H 39 H Rate Blood Pressure 163/97 163/97 163/97 O2 Sat by Pulse 100 99 99 Oximetry O2 Sat by Pulse Oximetry [ Assessment] 02/18/17 02/18/17 02/18/17 06:01 06:15 06:31 Temperature Pulse Rate 107 H 105 H 103 H Respiratory 20 43 H 42 H Rate Blood Pressure 137/78 137/78 137/78 O2 Sat by Pulse 100 100 100 Oximetry O2 Sat by Pulse Oximetry [ Assessment] 02/18/17 02/18/17 02/18/17 06:45 07:01 07:15 Temperature Pulse Rate 103 H 102 H 102 H Respiratory 25 H 23 25 H Rate Blood Pressure 137/78 138/85 138/85 O2 Sat by Pulse 100 100 100 Oximetry O2 Sat by Pulse Oximetry [ Assessment] 02/18/17 02/18/17 02/18/17 07:31 07:45 08:00 Temperature 99.0 F Pulse Rate 101 H 101 H Respiratory 24 42 H Rate Blood Pressure 138/85 138/85 O2 Sat by Pulse 100 100 Oximetry O2 Sat by Pulse Oximetry [ Assessment] 02/18/17 02/18/17 02/18/17 08:01 08:15 08:31 Temperature Pulse Rate 99 H 102 H 100 H Respiratory 23 18 24 Rate Blood Pressure 131/81 131/81 131/81 O2 Sat by Pulse 99 100 97 Oximetry O2 Sat by Pulse Oximetry [ Assessment] 02/18/17 02/18/17 02/18/17 08:35 08:45 09:01 Temperature Pulse Rate 110 H 103 H 109 H Respiratory 31 H 43 H Rate Blood Pressure 131/81 131/81 129/75 O2 Sat by Pulse 100 100 94 Oximetry O2 Sat by Pulse Oximetry [ Assessment] 02/18/17 02/18/17 02/18/17 09:15 09:31 09:45 Temperature Pulse Rate 108 H 90 107 H Respiratory 40 H 17 16 Rate Blood Pressure 129/75 129/75 129/75 O2 Sat by Pulse 96 97 99 Oximetry O2 Sat by Pulse Oximetry [ Assessment] 02/18/17 02/18/17 02/18/17 10:01 10:15 10:31 Temperature Pulse Rate 106 H 104 H 110 H Respiratory 36 H 43 H 43 H Rate Blood Pressure 119/66 119/66 119/66 O2 Sat by Pulse 98 99 99 Oximetry O2 Sat by Pulse Oximetry [ Assessment] 02/18/17 02/18/17 02/18/17 10:45 11:00 11:15 Temperature Pulse Rate 107 H 114 H 104 H Respiratory 41 H 46 H 45 H Rate Blood Pressure 119/66 131/81 131/81 O2 Sat by Pulse 97 96 97 Oximetry O2 Sat by Pulse Oximetry [ Assessment] 02/18/17 02/18/17 02/18/17 11:31 11:59 12:55 Temperature 98.8 F Pulse Rate 106 H 101 H Respiratory 41 H Rate Blood Pressure 131/81 149/89 O2 Sat by Pulse 100 100 Oximetry O2 Sat by Pulse Oximetry [ Assessment] Constitutional: appears uncomfortable, other (not tracking) Eyes: non-icteric, other (tracheostomy tube in midline of neck) ENT: oropharynx moist, oropharyngeal exudate pre, other (midline tracheostomy tube) Neck: supple, no lymphadenopathy, no JVD, other (no thyromegaly) Effort: mildly labored Ascultation: Bilateral: diminished breath sounds, rhonchi (and referred upper airway sounds) Percussion: Bilateral: not dull Cardiovascular: regular rate and rhythm, other (no rubs / murmurs) Gastrointestinal: hypoactive bowel sounds, soft, non-tender, non-distended, other (RLQ & LUQ stomas with colostomy bags) Integumentary: decubitus ulcer (sacral; stage 4 s/p surgical debridement), other (no rash; no cellulitis; poor turgor) Extremities: no cyanosis, pulses normal, no ischemia or petechiae, edema (1+ bilaterally) Neurologic: pupils equal and round, unable to assess, other (encephalopathic) Psychiatric: other (unable to assess) CBC and BMP: 02/19/17 09:45 02/20/17 06:15 ABG, PT/INR, D-dimer: ABG POC ABG pH 7.436 (7.35-7.45) 01/20/17 12:17 ABG pH 7.450 pH Units (7.350-7.450) 12/05/16 Unknown POC ABG pCO2 35.3 (35-45) 01/20/17 12:17 ABG pCO2 29.6 mm Hg 12/05/16 Unknown POC ABG pO2 70 (80-105) L 01/20/17 12:17 ABG pO2 75.2 mm Hg (80.0-90.0) L 12/05/16 Unknown POC ABG HCO3 23.8 01/20/17 12:17 POC ABG Total CO2 25 01/20/17 12:17 POC ABG O2 Sat 94 01/20/17 12: ABG O2 Saturation 96.8 % (95.0-99.0) 12/05/16 Unknown PT/INR, D-dimer PT 15.4 Sec. (12.2-14.9) H 01/13/17 15:50 INR 1.16 (0.87-1.13) H 01/13/17 15:50 Abnormal lab findings: Abnormal Labs 09/03/16 09/03/16 09/03/16 00:03 00:10 00:10 WBC 13.9 H RBC 5.95 H Hgb Hct 44.0 H MCV 74 L MCH 22 L MCHC RDW 17.5 H Plt Count Lymph % (Auto) Mccormick % (Auto) Lymph # Mccormick # Baso # Seg Neutrophils % Seg Neuts % (Manual) Lymphocytes % (Manual) 54.0 H Monocytes % (Manual) Eosinophils % (Manual) Basophils % (Manual) Nucleated RBC % Seg Neutrophils # Seg Neutrophils # Man Lymphocytes # (Manual) 7.5 H Monocytes # (Manual) Eosinophils # (Manual) Basophils # (Manual) PT INR Fibrinogen dRVVT Confirm Interp Factor V Activity POC ABG pH POC ABG pCO2 POC ABG pO2 ABG pO2 ABG HCO3 ABG Base Excess ABG Hemoglobin Oxyhemoglobin Sodium Potassium 2.8 L* Chloride Carbon Dioxide 21 L BUN Creatinine 1.7 H Glucose 159 H POC Glucose 177 H Lactic Acid Calcium Ionized Calcium Phosphorus Magnesium Direct Bilirubin AST ALT Alkaline Phosphatase Lactate Dehydrogenase Troponin T C-Reactive Protein Total Protein Albumin Prealbumin Triglycerides Cholesterol LDL Cholesterol Direct HDL Cholesterol PTH Intact Urine pH Urine WBC (Auto) Urine Creatinine Urine Total Protein Fluid Total Protein Vancomycin Trough Rheumatoid Factor Complement C4 Miscellaneous Test Crossmatch 09/03/16 09/03/16 09/03/16 12:12 15:07 16:20 WBC RBC Hgb Hct MCV MCH MCHC RDW Plt Count Lymph % (Auto) Mccormick % (Auto) Lymph # Mccormick # Baso # Seg Neutrophils % Seg Neuts % (Manual) Lymphocytes % (Manual) Monocytes % (Manual) Eosinophils % (Manual) Basophils % (Manual) Nucleated RBC % Seg Neutrophils # Seg Neutrophils # Man Lymphocytes # (Manual) Monocytes # (Manual) Eosinophils # (Manual) Basophils # (Manual) PT INR Fibrinogen dRVVT Confirm Interp Factor V Activity POC ABG pH 7.452 H POC ABG pCO2 POC ABG pO2 ABG pO2 ABG HCO3 ABG Base Excess ABG Hemoglobin Oxyhemoglobin Sodium Potassium Chloride Carbon Dioxide BUN Creatinine Glucose POC Glucose 178 H Lactic Acid Calcium Ionized Calcium Phosphorus 2.20 L Magnesium 1.60 L Direct Bilirubin AST ALT Alkaline Phosphatase Lactate Dehydrogenase Troponin T C-Reactive Protein Total Protein Albumin Prealbumin Triglycerides Cholesterol LDL Cholesterol Direct HDL Cholesterol PTH Intact Urine pH Urine WBC (Auto) Urine Creatinine Urine Total Protein Fluid Total Protein Vancomycin Trough Rheumatoid Factor Complement C4 Miscellaneous Test Crossmatch 09/03/16 09/03/16 09/03/16 17:57 17:58 23:50 WBC RBC Hgb Hct MCV MCH MCHC RDW Plt Count Lymph % (Auto) Mccormick % (Auto) Lymph # Mccormick # Baso # Seg Neutrophils % Seg Neuts % (Manual) Lymphocytes % (Manual) Monocytes % (Manual) Eosinophils % (Manual) Basophils % (Manual) Nucleated RBC % Seg Neutrophils # Seg Neutrophils # Man Lymphocytes # (Manual) Monocytes # (Manual) Eosinophils # (Manual) Basophils # (Manual) PT INR Fibrinogen dRVVT Confirm Interp Factor V Activity POC ABG pH POC ABG pCO2 POC ABG pO2 ABG pO2 ABG HCO3 ABG Base Excess ABG Hemoglobin Oxyhemoglobin Sodium Potassium Chloride Carbon Dioxide BUN Creatinine Glucose POC Glucose 162 H 145 H Lactic Acid Calcium Ionized Calcium Phosphorus 2.30 L Magnesium Direct Bilirubin AST ALT Alkaline Phosphatase Lactate Dehydrogenase Troponin T C-Reactive Protein Total Protein Albumin Prealbumin Triglycerides Cholesterol LDL Cholesterol Direct HDL Cholesterol PTH Intact Urine pH Urine WBC (Auto) Urine Creatinine Urine Total Protein Fluid Total Protein Vancomycin Trough Rheumatoid Factor Complement C4 Miscellaneous Test Crossmatch 09/04/16 09/04/16 09/04/16 03:31 03:31 05:42 WBC RBC Hgb 9.7 L D Hct MCV 72 L MCH 23 L MCHC RDW 17.5 H Plt Count Lymph % (Auto) 11.1 L Mccormick % (Auto) Lymph # Mccormick # Baso # Seg Neutrophils % 84.3 H Seg Neuts % (Manual) Lymphocytes % (Manual) Monocytes % (Manual) Eosinophils % (Manual) Basophils % (Manual) Nucleated RBC % Seg Neutrophils # 8.9 H Seg Neutrophils # Man Lymphocytes # (Manual) Monocytes # (Manual) Eosinophils # (Manual) Basophils # (Manual) PT INR Fibrinogen dRVVT Confirm Interp Factor V Activity POC ABG pH POC ABG pCO2 POC ABG pO2 ABG pO2 ABG HCO3 ABG Base Excess ABG Hemoglobin Oxyhemoglobin Sodium 135 L Potassium 2.9 L* Chloride 97.2 L Carbon Dioxide 19 L BUN Creatinine 1.7 H Glucose 170 H POC Glucose 152 H Lactic Acid Calcium Ionized Calcium Phosphorus Magnesium Direct Bilirubin AST ALT Alkaline Phosphatase Lactate Dehydrogenase Troponin T C-Reactive Protein Total Protein Albumin Prealbumin Triglycerides 160 H Cholesterol LDL Cholesterol Direct HDL Cholesterol 31 L PTH Intact Urine pH Urine WBC (Auto) Urine Creatinine Urine Total Protein Fluid Total Protein Vancomycin Trough Rheumatoid Factor Complement C4 Miscellaneous Test Crossmatch 09/04/16 09/04/16 09/04/16 11:34 17:46 23:29 WBC RBC Hgb Hct MCV MCH MCHC RDW Plt Count Lymph % (Auto) Mccormick % (Auto) Lymph # Mccormick # Baso # Seg Neutrophils % Seg Neuts % (Manual) Lymphocytes % (Manual) Monocytes % (Manual) Eosinophils % (Manual) Basophils % (Manual) Nucleated RBC % Seg Neutrophils # Seg Neutrophils # Man Lymphocytes # (Manual) Monocytes # (Manual) Eosinophils # (Manual) Basophils # (Manual) PT INR Fibrinogen dRVVT Confirm Interp Factor V Activity POC ABG pH POC ABG pCO2 POC ABG pO2 ABG pO2 ABG HCO3 ABG Base Excess ABG Hemoglobin Oxyhemoglobin Sodium Potassium Chloride Carbon Dioxide BUN Creatinine Glucose POC Glucose 165 H 210 H 139 H Lactic Acid Calcium Ionized Calcium Phosphorus Magnesium Direct Bilirubin AST ALT Alkaline Phosphatase Lactate Dehydrogenase Troponin T C-Reactive Protein Total Protein Albumin Prealbumin Triglycerides Cholesterol LDL Cholesterol Direct HDL Cholesterol PTH Intact Urine pH Urine WBC (Auto) Urine Creatinine Urine Total Protein Fluid Total Protein Vancomycin Trough Rheumatoid Factor Complement C4 Miscellaneous Test Crossmatch 09/05/16 09/05/16 09/05/16 04:05 04:05 05:38 WBC RBC Hgb Hct MCV 76 L D MCH 23 L MCHC RDW 17.8 H Plt Count Lymph % (Auto) Mccormick % (Auto) Lymph # Mccormick # Baso # Seg Neutrophils % Seg Neuts % (Manual) Lymphocytes % (Manual) Monocytes % (Manual) Eosinophils % (Manual) Basophils % (Manual) Nucleated RBC % Seg Neutrophils # Seg Neutrophils # Man Lymphocytes # (Manual) Monocytes # (Manual) Eosinophils # (Manual) Basophils # (Manual) PT INR Fibrinogen dRVVT Confirm Interp Factor V Activity POC ABG pH POC ABG pCO2 POC ABG pO2 ABG pO2 ABG HCO3 ABG Base Excess ABG Hemoglobin Oxyhemoglobin Sodium 134 L Potassium Chloride Carbon Dioxide 18 L BUN Creatinine 1.8 H Glucose 192 H POC Glucose 175 H Lactic Acid Calcium Ionized Calcium Phosphorus Magnesium Direct Bilirubin AST ALT Alkaline Phosphatase Lactate Dehydrogenase Troponin T C-Reactive Protein Total Protein Albumin Prealbumin Triglycerides Cholesterol LDL Cholesterol Direct HDL Cholesterol PTH Intact Urine pH Urine WBC (Auto) Urine Creatinine Urine Total Protein Fluid Total Protein Vancomycin Trough Rheumatoid Factor Complement C4 Miscellaneous Test Crossmatch 09/05/16 09/05/16 09/05/16 11:38 17:48 23:22 WBC RBC Hgb Hct MCV MCH MCHC RDW Plt Count Lymph % (Auto) Mccormick % (Auto) Lymph # Mccormick # Baso # Seg Neutrophils % Seg Neuts % (Manual) Lymphocytes % (Manual) Monocytes % (Manual) Eosinophils % (Manual) Basophils % (Manual) Nucleated RBC % Seg Neutrophils # Seg Neutrophils # Man Lymphocytes # (Manual) Monocytes # (Manual) Eosinophils # (Manual) Basophils # (Manual) PT INR Fibrinogen dRVVT Confirm Interp Factor V Activity POC ABG pH POC ABG pCO2 POC ABG pO2 ABG pO2 ABG HCO3 ABG Base Excess ABG Hemoglobin Oxyhemoglobin Sodium Potassium Chloride Carbon Dioxide BUN Creatinine Glucose POC Glucose 164 H 186 H 195 H Lactic Acid Calcium Ionized Calcium Phosphorus Magnesium Direct Bilirubin AST ALT Alkaline Phosphatase Lactate Dehydrogenase Troponin T C-Reactive Protein Total Protein Albumin Prealbumin Triglycerides Cholesterol LDL Cholesterol Direct HDL Cholesterol PTH Intact Urine pH Urine WBC (Auto) Urine Creatinine Urine Total Protein Fluid Total Protein Vancomycin Trough Rheumatoid Factor Complement C4 Miscellaneous Test Crossmatch 09/06/16 09/06/16 09/06/16 04:12 05:59 07:32 WBC RBC Hgb Hct MCV MCH MCHC RDW Plt Count Lymph % (Auto) Mccormick % (Auto) Lymph # Mccormick # Baso # Seg Neutrophils % Seg Neuts % (Manual) Lymphocytes % (Manual) Monocytes % (Manual) Eosinophils % (Manual) Basophils % (Manual) Nucleated RBC % Seg Neutrophils # Seg Neutrophils # Man Lymphocytes # (Manual) Monocytes # (Manual) Eosinophils # (Manual) Basophils # (Manual) PT INR Fibrinogen dRVVT Confirm Interp Factor V Activity POC ABG pH 7.514 H POC ABG pCO2 29.1 L POC ABG pO2 72 L ABG pO2 ABG HCO3 ABG Base Excess ABG Hemoglobin Oxyhemoglobin Sodium 133 L Potassium 3.4 L Chloride 94.9 L Carbon Dioxide 19 L BUN 30 H Creatinine 2.1 H Glucose 139 H POC Glucose 146 H Lactic Acid Calcium Ionized Calcium Phosphorus Magnesium Direct Bilirubin AST ALT Alkaline Phosphatase Lactate Dehydrogenase Troponin T C-Reactive Protein Total Protein Albumin Prealbumin Triglycerides Cholesterol LDL Cholesterol Direct HDL Cholesterol PTH Intact Urine pH Urine WBC (Auto) Urine Creatinine Urine Total Protein Fluid Total Protein Vancomycin Trough Rheumatoid Factor Complement C4 Miscellaneous Test Crossmatch 09/06/16 09/06/16 09/06/16 11:57 17:58 19:02 WBC RBC Hgb Hct MCV MCH MCHC RDW Plt Count Lymph % (Auto) Mccormick % (Auto) Lymph # Mccormick # Baso # Seg Neutrophils % Seg Neuts % (Manual) Lymphocytes % (Manual) Monocytes % (Manual) Eosinophils % (Manual) Basophils % (Manual) Nucleated RBC % Seg Neutrophils # Seg Neutrophils # Man Lymphocytes # (Manual) Monocytes # (Manual) Eosinophils # (Manual) Basophils # (Manual) PT INR Fibrinogen dRVVT Confirm Interp Factor V Activity POC ABG pH 7.465 H POC ABG pCO2 32.0 L POC ABG pO2 ABG pO2 ABG HCO3 ABG Base Excess ABG Hemoglobin Oxyhemoglobin Sodium Potassium Chloride Carbon Dioxide BUN Creatinine Glucose POC Glucose 165 H 160 H Lactic Acid Calcium Ionized Calcium Phosphorus Magnesium Direct Bilirubin AST ALT Alkaline Phosphatase Lactate Dehydrogenase Troponin T C-Reactive Protein Total Protein Albumin Prealbumin Triglycerides Cholesterol LDL Cholesterol Direct HDL Cholesterol PTH Intact Urine pH Urine WBC (Auto) Urine Creatinine Urine Total Protein Fluid Total Protein Vancomycin Trough Rheumatoid Factor Complement C4 Miscellaneous Test Crossmatch 09/06/16 09/07/16 09/07/16 23:45 02:47 02:47 WBC RBC Hgb Hct MCV MCH MCHC RDW Plt Count Lymph % (Auto) Mccormick % (Auto) Lymph # Mccormick # Baso # Seg Neutrophils % Seg Neuts % (Manual) Lymphocytes % (Manual) Monocytes % (Manual) Eosinophils % (Manual) Basophils % (Manual) Nucleated RBC % Seg Neutrophils # Seg Neutrophils # Man Lymphocytes # (Manual) Monocytes # (Manual) Eosinophils # (Manual) Basophils # (Manual) PT INR Fibrinogen dRVVT Confirm Interp Factor V Activity POC ABG pH POC ABG pCO2 POC ABG pO2 ABG pO2 ABG HCO3 ABG Base Excess ABG Hemoglobin Oxyhemoglobin Sodium Potassium Chloride Carbon Dioxide BUN Creatinine Glucose POC Glucose 204 H Lactic Acid Calcium Ionized Calcium Phosphorus Magnesium Direct Bilirubin AST ALT Alkaline Phosphatase Lactate Dehydrogenase Troponin T C-Reactive Protein Total Protein Albumin Prealbumin Triglycerides Cholesterol LDL Cholesterol Direct HDL Cholesterol PTH Intact Urine pH Urine WBC (Auto) 68.0 H Urine Creatinine 106.1 H Urine Total Protein Fluid Total Protein Vancomycin Trough Rheumatoid Factor Complement C4 Miscellaneous Test Crossmatch 09/07/16 09/07/16 09/07/16 04:50 06:19 06:39 WBC RBC Hgb Hct MCV MCH MCHC RDW Plt Count Lymph % (Auto) Mccormick % (Auto) Lymph # Mccormick # Baso # Seg Neutrophils % Seg Neuts % (Manual) Lymphocytes % (Manual) Monocytes % (Manual) Eosinophils % (Manual) Basophils % (Manual) Nucleated RBC % Seg Neutrophils # Seg Neutrophils # Man Lymphocytes # (Manual) Monocytes # (Manual) Eosinophils # (Manual) Basophils # (Manual) PT INR Fibrinogen dRVVT Confirm Interp Factor V Activity POC ABG pH 7.457 H POC ABG pCO2 32.1 L POC ABG pO2 76 L ABG pO2 ABG HCO3 ABG Base Excess ABG Hemoglobin Oxyhemoglobin Sodium 132 L Potassium Chloride 94.7 L Carbon Dioxide BUN 53 H Creatinine 2.9 H Glucose 151 H POC Glucose 149 H Lactic Acid Calcium Ionized Calcium Phosphorus Magnesium Direct Bilirubin AST ALT Alkaline Phosphatase Lactate Dehydrogenase Troponin T C-Reactive Protein Total Protein Albumin Prealbumin Triglycerides Cholesterol LDL Cholesterol Direct HDL Cholesterol PTH Intact Urine pH Urine WBC (Auto) Urine Creatinine Urine Total Protein Fluid Total Protein Vancomycin Trough Rheumatoid Factor Complement C4 Miscellaneous Test Crossmatch 09/07/16 09/07/16 09/07/16 09:20 11:43 11:43 WBC 19.4 H RBC Hgb 8.3 L Hct 26.4 L D MCV 72 L D MCH 22 L MCHC RDW 17.9 H Plt Count Lymph % (Auto) 8.5 L Mccormick % (Auto) Lymph # Mccormick # 1.0 H Baso # Seg Neutrophils % 85.8 H Seg Neuts % (Manual) Lymphocytes % (Manual) Monocytes % (Manual) Eosinophils % (Manual) Basophils % (Manual) Nucleated RBC % Seg Neutrophils # 16.6 H Seg Neutrophils # Man Lymphocytes # (Manual) Monocytes # (Manual) Eosinophils # (Manual) Basophils # (Manual) PT INR Fibrinogen dRVVT Confirm Interp Factor V Activity POC ABG pH POC ABG pCO2 POC ABG pO2 ABG pO2 ABG HCO3 ABG Base Excess ABG Hemoglobin Oxyhemoglobin Sodium 134 L Potassium Chloride 97.2 L Carbon Dioxide 20 L BUN 58 H Creatinine 2.9 H Glucose 147 H POC Glucose Lactic Acid Calcium Ionized Calcium Phosphorus 2.40 L Magnesium 2.40 H Direct Bilirubin AST ALT Alkaline Phosphatase Lactate Dehydrogenase Troponin T C-Reactive Protein Total Protein 5.8 L Albumin 2.2 L Prealbumin Triglycerides Cholesterol LDL Cholesterol Direct HDL Cholesterol PTH Intact Urine pH Urine WBC (Auto) Urine Creatinine Urine Total Protein Fluid Total Protein Vancomycin Trough Rheumatoid Factor Complement C4 58 H Miscellaneous Test Crossmatch 09/07/16 09/07/16 09/07/16 11:50 16:00 17:31 WBC RBC Hgb Hct MCV MCH MCHC RDW Plt Count Lymph % (Auto) Mccormick % (Auto) Lymph # Mccormick # Baso # Seg Neutrophils % Seg Neuts % (Manual) Lymphocytes % (Manual) Monocytes % (Manual) Eosinophils % (Manual) Basophils % (Manual) Nucleated RBC % Seg Neutrophils # Seg Neutrophils # Man Lymphocytes # (Manual) Monocytes # (Manual) Eosinophils # (Manual) Basophils # (Manual) PT INR Fibrinogen dRVVT Confirm Interp Factor V Activity POC ABG pH POC ABG pCO2 POC ABG pO2 158 H ABG pO2 ABG HCO3 ABG Base Excess ABG Hemoglobin Oxyhemoglobin Sodium Potassium Chloride Carbon Dioxide BUN Creatinine Glucose POC Glucose 175 H Lactic Acid Calcium Ionized Calcium Phosphorus Magnesium Direct Bilirubin AST ALT Alkaline Phosphatase Lactate Dehydrogenase Troponin T C-Reactive Protein Total Protein Albumin Prealbumin Triglycerides Cholesterol LDL Cholesterol Direct HDL Cholesterol PTH Intact Urine pH Urine WBC (Auto) Urine Creatinine 66.3 H Urine Total Protein Fluid Total Protein Vancomycin Trough Rheumatoid Factor Complement C4 Miscellaneous Test Crossmatch 09/07/16 09/08/16 09/08/16 23:50 05:46 06:18 WBC 17.8 H RBC 3.58 L Hgb 8.1 L Hct 25.5 L MCV 71 L MCH 23 L MCHC RDW 18.4 H Plt Count Lymph % (Auto) Mccormick % (Auto) Lymph # Mccormick # Baso # Seg Neutrophils % Seg Neuts % (Manual) 92.0 H Lymphocytes % (Manual) 6.0 L Monocytes % (Manual) Eosinophils % (Manual) Basophils % (Manual) Nucleated RBC % Seg Neutrophils # Seg Neutrophils # Man 16.4 H Lymphocytes # (Manual) 1.1 L Monocytes # (Manual) Eosinophils # (Manual) Basophils # (Manual) PT INR Fibrinogen dRVVT Confirm Interp Factor V Activity POC ABG pH POC ABG pCO2 34.3 L POC ABG pO2 71 L ABG pO2 ABG HCO3 ABG Base Excess ABG Hemoglobin Oxyhemoglobin Sodium Potassium Chloride Carbon Dioxide BUN Creatinine Glucose POC Glucose 216 H Lactic Acid Calcium Ionized Calcium Phosphorus Magnesium Direct Bilirubin AST ALT Alkaline Phosphatase Lactate Dehydrogenase Troponin T C-Reactive Protein Total Protein Albumin Prealbumin Triglycerides Cholesterol LDL Cholesterol Direct HDL Cholesterol PTH Intact Urine pH Urine WBC (Auto) Urine Creatinine Urine Total Protein Fluid Total Protein Vancomycin Trough Rheumatoid Factor Complement C4 Miscellaneous Test Crossmatch 09/08/16 09/08/16 09/08/16 06:18 06:51 10:55 WBC RBC Hgb Hct MCV MCH MCHC RDW Plt Count Lymph % (Auto) Mccormick % (Auto) Lymph # Mccormick # Baso # Seg Neutrophils % Seg Neuts % (Manual) Lymphocytes % (Manual) Monocytes % (Manual) Eosinophils % (Manual) Basophils % (Manual) Nucleated RBC % Seg Neutrophils # Seg Neutrophils # Man Lymphocytes # (Manual) Monocytes # (Manual) Eosinophils # (Manual) Basophils # (Manual) PT INR Fibrinogen dRVVT Confirm Interp Factor V Activity POC ABG pH POC ABG pCO2 POC ABG pO2 ABG pO2 ABG HCO3 ABG Base Excess ABG Hemoglobin Oxyhemoglobin Sodium 133 L Potassium Chloride 96.9 L Carbon Dioxide 20 L BUN 63 H Creatinine 2.7 H Glucose 195 H POC Glucose 204 H 169 H Lactic Acid Calcium Ionized Calcium Phosphorus Magnesium Direct Bilirubin AST ALT Alkaline Phosphatase Lactate Dehydrogenase Troponin T C-Reactive Protein Total Protein Albumin Prealbumin Triglycerides Cholesterol LDL Cholesterol Direct HDL Cholesterol PTH Intact Urine pH Urine WBC (Auto) Urine Creatinine Urine Total Protein Fluid Total Protein Vancomycin Trough Rheumatoid Factor Complement C4 Miscellaneous Test Crossmatch 09/08/16 09/08/16 09/08/16 11:48 11:48 11:48 WBC RBC Hgb Hct MCV MCH MCHC RDW Plt Count Lymph % (Auto) Mccormick % (Auto) Lymph # [place] # Baso # Seg Neutrophils % Seg Neuts % (Manual) Lymphocytes % (Manual) Monocytes % (Manual) Eosinophils % (Manual) Basophils % (Manual) Nucleated RBC % Seg Neutrophils # Seg Neutrophils # Man Lymphocytes # (Manual) Monocytes # (Manual) Eosinophils # (Manual) Basophils # (Manual) PT INR Fibrinogen 750 H dRVVT Confirm Interp Factor V Activity POC ABG pH POC ABG pCO2 POC ABG pO2 ABG pO2 ABG HCO3 ABG Base Excess ABG Hemoglobin Oxyhemoglobin Sodium Potassium Chloride Carbon Dioxide BUN Creatinine Glucose POC Glucose Lactic Acid Calcium Ionized Calcium Phosphorus Magnesium Direct Bilirubin AST ALT Alkaline Phosphatase Lactate Dehydrogenase Troponin T C-Reactive Protein 15.70 H Total Protein Albumin Prealbumin Triglycerides Cholesterol LDL Cholesterol Direct HDL Cholesterol PTH Intact Urine pH Urine WBC (Auto) Urine Creatinine Urine Total Protein Fluid Total Protein Vancomycin Trough Rheumatoid Factor 24 H Complement C4 Miscellaneous Test Crossmatch 09/08/16 09/08/16 09/09/16 15:35 18:25 00:24 WBC RBC Hgb Hct MCV MCH MCHC RDW Plt Count Lymph % (Auto) [place] % (Auto) Lymph # [place] # Baso # Seg Neutrophils % Seg Neuts % (Manual) Lymphocytes % (Manual) Monocytes % (Manual) Eosinophils % (Manual) Basophils % (Manual) Nucleated RBC % Seg Neutrophils # Seg Neutrophils # Man Lymphocytes # (Manual) Monocytes # (Manual) Eosinophils # (Manual) Basophils # (Manual) PT INR Fibrinogen dRVVT Confirm Interp Factor V Activity 182 H POC ABG pH POC ABG pCO2 POC ABG pO2 ABG pO2 ABG HCO3 ABG Base Excess ABG Hemoglobin Oxyhemoglobin Sodium Potassium Chloride Carbon Dioxide BUN Creatinine Glucose POC Glucose 184 H 216 H Lactic Acid Calcium Ionized Calcium Phosphorus Magnesium Direct Bilirubin AST ALT Alkaline Phosphatase Lactate Dehydrogenase Troponin T C-Reactive Protein Total Protein Albumin Prealbumin Triglycerides Cholesterol LDL Cholesterol Direct HDL Cholesterol PTH Intact Urine pH Urine WBC (Auto) Urine Creatinine Urine Total Protein Fluid Total Protein Vancomycin Trough Rheumatoid Factor Complement C4 Miscellaneous Test Crossmatch 09/09/16 09/09/16 09/09/16 03:00 03:00 04:04 WBC 27.9 H RBC Hgb 8.7 L Hct 28.1 L MCV 72 L MCH 22 L MCHC RDW 18.4 H Plt Count 485 H Lymph % (Auto) [place] % (Auto) Lymph # [place] # Baso # Seg Neutrophils % Seg Neuts % (Manual) 77.0 H Lymphocytes % (Manual) 9.0 L Monocytes % (Manual) Eosinophils % (Manual) Basophils % (Manual) Nucleated RBC % Seg Neutrophils # Seg Neutrophils # Man 21.5 H Lymphocytes # (Manual) Monocytes # (Manual) 2.0 H Eosinophils # (Manual) Basophils # (Manual) PT INR Fibrinogen dRVVT Confirm Interp Factor V Activity POC ABG pH POC ABG pCO2 POC ABG pO2 121 H ABG pO2 ABG HCO3 ABG Base Excess ABG Hemoglobin Oxyhemoglobin Sodium 135 L Potassium Chloride 96.3 L Carbon Dioxide 21 L BUN 83 H Creatinine 3.0 H Glucose 135 H POC Glucose Lactic Acid Calcium Ionized Calcium Phosphorus Magnesium Direct Bilirubin AST ALT Alkaline Phosphatase Lactate Dehydrogenase Troponin T C-Reactive Protein Total Protein Albumin Prealbumin Triglycerides Cholesterol LDL Cholesterol Direct HDL Cholesterol PTH Intact Urine pH Urine WBC (Auto) Urine Creatinine Urine Total Protein Fluid Total Protein Vancomycin Trough Rheumatoid Factor Complement C4 Miscellaneous Test Crossmatch 09/09/16 09/09/16 09/09/16 05:41 11:55 14:13 WBC RBC Hgb Hct MCV MCH MCHC RDW Plt Count Lymph % (Auto) [place] % (Auto) Lymph # [place] # Baso # Seg Neutrophils % Seg Neuts % (Manual) Lymphocytes % (Manual) Monocytes % (Manual) Eosinophils % (Manual) Basophils % (Manual) Nucleated RBC % Seg Neutrophils # Seg Neutrophils # Man Lymphocytes # (Manual) Monocytes # (Manual) Eosinophils # (Manual) Basophils # (Manual) PT INR Fibrinogen dRVVT Confirm Interp Factor V Activity POC ABG pH POC ABG pCO2 POC ABG pO2 ABG pO2 ABG HCO3 ABG Base Excess ABG Hemoglobin Oxyhemoglobin Sodium Potassium Chloride Carbon Dioxide BUN Creatinine Glucose POC Glucose 155 H 186 H Lactic Acid Calcium Ionized Calcium Phosphorus Magnesium Direct Bilirubin AST ALT Alkaline Phosphatase Lactate Dehydrogenase Troponin T C-Reactive Protein Total Protein Albumin Prealbumin Triglycerides Cholesterol LDL Cholesterol Direct HDL Cholesterol PTH Intact Urine pH Urine WBC (Auto) 25.0 H Urine Creatinine Urine Total Protein Fluid Total Protein Vancomycin Trough Rheumatoid Factor Complement C4 Miscellaneous Test Crossmatch 09/09/16 09/09/16 09/10/16 17:33 23:13 05:09 WBC RBC Hgb Hct MCV MCH MCHC RDW Plt Count Lymph % (Auto) [place] % (Auto) Lymph # [place] # Baso # Seg Neutrophils % Seg Neuts % (Manual) Lymphocytes % (Manual) Monocytes % (Manual) Eosinophils % (Manual) Basophils % (Manual) Nucleated RBC % Seg Neutrophils # Seg Neutrophils # Man Lymphocytes # (Manual) Monocytes # (Manual) Eosinophils # (Manual) Basophils # (Manual) PT INR Fibrinogen dRVVT Confirm Interp Factor V Activity POC ABG pH POC ABG pCO2 POC ABG pO2 74 L ABG pO2 ABG HCO3 ABG Base Excess ABG Hemoglobin Oxyhemoglobin Sodium Potassium Chloride Carbon Dioxide BUN Creatinine Glucose POC Glucose 211 H 215 H Lactic Acid Calcium Ionized Calcium Phosphorus Magnesium Direct Bilirubin AST ALT Alkaline Phosphatase Lactate Dehydrogenase Troponin T C-Reactive Protein Total Protein Albumin Prealbumin Triglycerides Cholesterol LDL Cholesterol Direct HDL Cholesterol PTH Intact Urine pH Urine WBC (Auto) Urine Creatinine Urine Total Protein Fluid Total Protein Vancomycin Trough Rheumatoid Factor Complement C4 Miscellaneous Test Crossmatch 09/10/16 09/10/16 09/10/16 05:17 05:17 11:31 WBC 15.8 H RBC 3.25 L Hgb 7.3 L Hct 22.9 L MCV 71 L MCH 23 L MCHC RDW 18.4 H Plt Count Lymph % (Auto) [place] % (Auto) Lymph # [place] # Baso # Seg Neutrophils % Seg Neuts % (Manual) 91.0 H Lymphocytes % (Manual) 4.0 L Monocytes % (Manual) Eosinophils % (Manual) Basophils % (Manual) Nucleated RBC % Seg Neutrophils # Seg Neutrophils # Man 14.4 H Lymphocytes # (Manual) 0.6 L Monocytes # (Manual) Eosinophils # (Manual) Basophils # (Manual) PT INR Fibrinogen dRVVT Confirm Interp Factor V Activity POC ABG pH POC ABG pCO2 POC ABG pO2 ABG pO2 ABG HCO3 ABG Base Excess ABG Hemoglobin Oxyhemoglobin Sodium Potassium Chloride Carbon Dioxide 21 L BUN 93 H Creatinine 2.9 H Glucose 146 H POC Glucose 188 H Lactic Acid Calcium 8.1 L Ionized Calcium Phosphorus Magnesium Direct Bilirubin AST ALT Alkaline Phosphatase Lactate Dehydrogenase Troponin T C-Reactive Protein Total Protein Albumin Prealbumin Triglycerides Cholesterol LDL Cholesterol Direct HDL Cholesterol PTH Intact Urine pH Urine WBC (Auto) Urine Creatinine Urine Total Protein Fluid Total Protein Vancomycin Trough Rheumatoid Factor Complement C4 Miscellaneous Test Crossmatch 09/10/16 09/10/16 09/10/16 13:17 17:20 23:32 WBC RBC Hgb Hct MCV MCH MCHC RDW Plt Count Lymph % (Auto) [place] % (Auto) Lymph # [place] # Baso # Seg Neutrophils % Seg Neuts % (Manual) Lymphocytes % (Manual) Monocytes % (Manual) Eosinophils % (Manual) Basophils % (Manual) Nucleated RBC % Seg Neutrophils # Seg Neutrophils # Man Lymphocytes # (Manual) Monocytes # (Manual) Eosinophils # (Manual) Basophils # (Manual) PT INR Fibrinogen dRVVT Confirm Interp Factor V Activity POC ABG pH POC ABG pCO2 POC ABG pO2 ABG pO2 ABG HCO3 ABG Base Excess ABG Hemoglobin Oxyhemoglobin Sodium Potassium Chloride Carbon Dioxide BUN Creatinine Glucose POC Glucose 199 H 186 H Lactic Acid Calcium Ionized Calcium Phosphorus Magnesium Direct Bilirubin AST ALT Alkaline Phosphatase Lactate Dehydrogenase Troponin T C-Reactive Protein Total Protein Albumin Prealbumin Triglycerides Cholesterol LDL Cholesterol Direct HDL Cholesterol PTH Intact Urine pH Urine WBC (Auto) Urine Creatinine Urine Total Protein Fluid Total Protein Vancomycin Trough Rheumatoid Factor Complement C4 Miscellaneous Test Crossmatch See Detail 09/11/16 09/11/16 09/11/16 05:10 05:10 05:17 WBC 28.4 H RBC Hgb 9.2 L Hct 29.3 L D MCV 73 L MCH 23 L MCHC RDW 18.9 H Plt Count 452 H Lymph % (Auto) [place] % (Auto) Lymph # [place] # Baso # Seg Neutrophils % Seg Neuts % (Manual) 89.5 H Lymphocytes % (Manual) 2.0 L Monocytes % (Manual) Eosinophils % (Manual) Basophils % (Manual) Nucleated RBC % Seg Neutrophils # Seg Neutrophils # Man 25.4 H Lymphocytes # (Manual) 0.6 L Monocytes # (Manual) 1.3 H Eosinophils # (Manual) Basophils # (Manual) PT INR Fibrinogen dRVVT Confirm Interp Factor V Activity POC ABG pH POC ABG pCO2 POC ABG pO2 ABG pO2 ABG HCO3 ABG Base Excess ABG Hemoglobin Oxyhemoglobin Sodium 136 L Potassium Chloride Carbon Dioxide 18 L BUN 107 H Creatinine 2.6 H Glucose 187 H POC Glucose 230 H Lactic Acid Calcium 8.3 L Ionized Calcium Phosphorus Magnesium Direct Bilirubin AST ALT Alkaline Phosphatase Lactate Dehydrogenase Troponin T C-Reactive Protein Total Protein Albumin Prealbumin Triglycerides Cholesterol LDL Cholesterol Direct HDL Cholesterol PTH Intact Urine pH Urine WBC (Auto) Urine Creatinine Urine Total Protein Fluid Total Protein Vancomycin Trough Rheumatoid Factor Complement C4 Miscellaneous Test Crossmatch 09/11/16 09/11/16 09/11/16 05:55 12:02 17:32 WBC RBC Hgb Hct MCV MCH MCHC RDW Plt Count Lymph % (Auto) [place] % (Auto) Lymph # [place] # Baso # Seg Neutrophils % Seg Neuts % (Manual) Lymphocytes % (Manual) Monocytes % (Manual) Eosinophils % (Manual) Basophils % (Manual) Nucleated RBC % Seg Neutrophils # Seg Neutrophils # Man Lymphocytes # (Manual) Monocytes # (Manual) Eosinophils # (Manual) Basophils # (Manual) PT INR Fibrinogen dRVVT Confirm Interp Factor V Activity POC ABG pH POC ABG pCO2 33.8 L POC ABG pO2 ABG pO2 ABG HCO3 ABG Base Excess ABG Hemoglobin Oxyhemoglobin Sodium Potassium Chloride Carbon Dioxide BUN Creatinine Glucose POC Glucose 191 H 239 H Lactic Acid Calcium Ionized Calcium Phosphorus Magnesium Direct Bilirubin AST ALT Alkaline Phosphatase Lactate Dehydrogenase Troponin T C-Reactive Protein Total Protein Albumin Prealbumin Triglycerides Cholesterol LDL Cholesterol Direct HDL Cholesterol PTH Intact Urine pH Urine WBC (Auto) Urine Creatinine Urine Total Protein Fluid Total Protein Vancomycin Trough Rheumatoid Factor Complement C4 Miscellaneous Test Crossmatch 09/11/16 09/12/16 09/12/16 23:52 05:09 05:32 WBC RBC Hgb Hct MCV MCH MCHC RDW Plt Count Lymph % (Auto) [place] % (Auto) Lymph # [place] # Baso # Seg Neutrophils % Seg Neuts % (Manual) Lymphocytes % (Manual) Monocytes % (Manual) Eosinophils % (Manual) Basophils % (Manual) Nucleated RBC % Seg Neutrophils # Seg Neutrophils # Man Lymphocytes # (Manual) Monocytes # (Manual) Eosinophils # (Manual) Basophils # (Manual) PT INR Fibrinogen dRVVT Confirm Interp Factor V Activity POC ABG pH POC ABG pCO2 34.6 L POC ABG pO2 ABG pO2 ABG HCO3 ABG Base Excess ABG Hemoglobin Oxyhemoglobin Sodium Potassium Chloride Carbon Dioxide BUN Creatinine Glucose POC Glucose 265 H 184 H Lactic Acid Calcium Ionized Calcium Phosphorus Magnesium Direct Bilirubin AST ALT Alkaline Phosphatase Lactate Dehydrogenase Troponin T C-Reactive Protein Total Protein Albumin Prealbumin Triglycerides Cholesterol LDL Cholesterol Direct HDL Cholesterol PTH Intact Urine pH Urine WBC (Auto) Urine Creatinine Urine Total Protein Fluid Total Protein Vancomycin Trough Rheumatoid Factor Complement C4 Miscellaneous Test Crossmatch 09/12/16 09/12/16 09/12/16 06:45 06:45 07:22 WBC 31.7 H RBC 3.54 L Hgb 8.3 L Hct 25.9 L MCV 73 L MCH 23 L MCHC RDW 18.9 H Plt Count Lymph % (Auto) [place] % (Auto) Lymph # [place] # Baso # Seg Neutrophils % Seg Neuts % (Manual) 88.5 H Lymphocytes % (Manual) 4.5 L Monocytes % (Manual) Eosinophils % (Manual) Basophils % (Manual) Nucleated RBC % Seg Neutrophils # Seg Neutrophils # Man 28.1 H Lymphocytes # (Manual) Monocytes # (Manual) 1.0 H Eosinophils # (Manual) Basophils # (Manual) PT INR Fibrinogen dRVVT Confirm Interp Factor V Activity POC ABG pH POC ABG pCO2 POC ABG pO2 ABG pO2 ABG HCO3 ABG Base Excess ABG Hemoglobin Oxyhemoglobin Sodium Potassium Chloride Carbon Dioxide 20 L BUN 115 H Creatinine 2.7 H Glucose 165 H POC Glucose Lactic Acid Calcium 8.0 L Ionized Calcium Phosphorus Magnesium Direct Bilirubin AST ALT Alkaline Phosphatase Lactate Dehydrogenase Troponin T C-Reactive Protein Total Protein Albumin Prealbumin Triglycerides 217 H Cholesterol LDL Cholesterol Direct HDL Cholesterol PTH Intact Urine pH Urine WBC (Auto) Urine Creatinine Urine Total Protein Fluid Total Protein Vancomycin Trough Rheumatoid Factor Complement C4 Miscellaneous Test Crossmatch 09/12/16 09/12/16 09/12/16 07:22 09:59 12:21 WBC RBC Hgb Hct MCV MCH MCHC RDW Plt Count Lymph % (Auto) [place] % (Auto) Lymph # [place] # Baso # Seg Neutrophils % Seg Neuts % (Manual) Lymphocytes % (Manual) Monocytes % (Manual) Eosinophils % (Manual) Basophils % (Manual) Nucleated RBC % Seg Neutrophils # Seg Neutrophils # Man Lymphocytes # (Manual) Monocytes # (Manual) Eosinophils # (Manual) Basophils # (Manual) PT INR Fibrinogen dRVVT Confirm Interp Positive H Factor V Activity POC ABG pH POC ABG pCO2 POC ABG pO2 ABG pO2 ABG HCO3 ABG Base Excess ABG Hemoglobin Oxyhemoglobin Sodium Potassium Chloride Carbon Dioxide BUN Creatinine Glucose POC Glucose 224 H Lactic Acid Calcium Ionized Calcium Phosphorus Magnesium Direct Bilirubin AST ALT Alkaline Phosphatase Lactate Dehydrogenase Troponin T C-Reactive Protein 1.70 H Total Protein Albumin Prealbumin Triglycerides Cholesterol LDL Cholesterol Direct HDL Cholesterol PTH Intact Urine pH Urine WBC (Auto) Urine Creatinine Urine Total Protein Fluid Total Protein Vancomycin Trough Rheumatoid Factor Complement C4 Miscellaneous Test Crossmatch 09/12/16 09/12/16 09/13/16 16:51 23:28 04:00 WBC 45.0 H* RBC Hgb 9.4 L Hct MCV 75 L MCH 23 L MCHC RDW 19.0 H Plt Count 470 H Lymph % (Auto) [place] % (Auto) Lymph # [place] # Baso # Seg Neutrophils % Seg Neuts % (Manual) 89.0 H Lymphocytes % (Manual) 5.0 L Monocytes % (Manual) Eosinophils % (Manual) Basophils % (Manual) Nucleated RBC % Seg Neutrophils # Seg Neutrophils # Man 40.1 H Lymphocytes # (Manual) Monocytes # (Manual) Eosinophils # (Manual) Basophils # (Manual) PT INR Fibrinogen dRVVT Confirm Interp Factor V Activity POC ABG pH POC ABG pCO2 POC ABG pO2 ABG pO2 ABG HCO3 ABG Base Excess ABG Hemoglobin Oxyhemoglobin Sodium Potassium Chloride Carbon Dioxide BUN Creatinine Glucose POC Glucose 169 H 150 H Lactic Acid Calcium Ionized Calcium Phosphorus Magnesium Direct Bilirubin AST ALT Alkaline Phosphatase Lactate Dehydrogenase Troponin T C-Reactive Protein Total Protein Albumin Prealbumin Triglycerides Cholesterol LDL Cholesterol Direct HDL Cholesterol PTH Intact Urine pH Urine WBC (Auto) Urine Creatinine Urine Total Protein Fluid Total Protein Vancomycin Trough Rheumatoid Factor Complement C4 Miscellaneous Test Crossmatch 09/13/16 09/13/16 09/13/16 04:00 11:26 17:31 WBC RBC Hgb Hct MCV MCH MCHC RDW Plt Count Lymph % (Auto) [place] % (Auto) Lymph # [place] # Baso # Seg Neutrophils % Seg Neuts % (Manual) Lymphocytes % (Manual) Monocytes % (Manual) Eosinophils % (Manual) Basophils % (Manual) Nucleated RBC % Seg Neutrophils # Seg Neutrophils # Man Lymphocytes # (Manual) Monocytes # (Manual) Eosinophils # (Manual) Basophils # (Manual) PT INR Fibrinogen dRVVT Confirm Interp Factor V Activity POC ABG pH POC ABG pCO2 POC ABG pO2 ABG pO2 ABG HCO3 ABG Base Excess ABG Hemoglobin Oxyhemoglobin Sodium Potassium Chloride Carbon Dioxide 20 L BUN 116 H Creatinine 3.0 H Glucose 172 H POC Glucose 140 H 183 H Lactic Acid Calcium Ionized Calcium Phosphorus Magnesium Direct Bilirubin AST ALT Alkaline Phosphatase Lactate Dehydrogenase Troponin T C-Reactive Protein Total Protein 6.2 L Albumin 2.9 L Prealbumin Triglycerides Cholesterol LDL Cholesterol Direct HDL Cholesterol PTH Intact Urine pH Urine WBC (Auto) Urine Creatinine Urine Total Protein Fluid Total Protein Vancomycin Trough Rheumatoid Factor Complement C4 Miscellaneous Test Crossmatch 09/13/16 09/14/16 09/14/16 23:23 04:06 04:07 WBC 29.4 H RBC Hgb 8.9 L Hct 27.3 L MCV 75 L MCH 24 L MCHC RDW 19.1 H Plt Count Lymph % (Auto) [place] % (Auto) Lymph # [place] # Baso # Seg Neutrophils % Seg Neuts % (Manual) 84.0 H Lymphocytes % (Manual) 6.0 L Monocytes % (Manual) 9.0 H Eosinophils % (Manual) Basophils % (Manual) Nucleated RBC % Seg Neutrophils # Seg Neutrophils # Man 24.7 H Lymphocytes # (Manual) Monocytes # (Manual) 2.6 H Eosinophils # (Manual) Basophils # (Manual) PT INR Fibrinogen dRVVT Confirm Interp Factor V Activity POC ABG pH 7.342 L POC ABG pCO2 POC ABG pO2 116 H ABG pO2 ABG HCO3 ABG Base Excess ABG Hemoglobin Oxyhemoglobin Sodium Potassium Chloride Carbon Dioxide BUN Creatinine Glucose POC Glucose 154 H Lactic Acid Calcium Ionized Calcium Phosphorus Magnesium Direct Bilirubin AST ALT Alkaline Phosphatase Lactate Dehydrogenase Troponin T C-Reactive Protein Total Protein Albumin Prealbumin Triglycerides Cholesterol LDL Cholesterol Direct HDL Cholesterol PTH Intact Urine pH Urine WBC (Auto) Urine Creatinine Urine Total Protein Fluid Total Protein Vancomycin Trough Rheumatoid Factor Complement C4 Miscellaneous Test Crossmatch 09/14/16 09/14/16 09/14/16 04:07 05:29 12:19 WBC RBC Hgb Hct MCV MCH MCHC RDW Plt Count Lymph % (Auto) [place] % (Auto) Lymph # [place] # Baso # Seg Neutrophils % Seg Neuts % (Manual) Lymphocytes % (Manual) Monocytes % (Manual) Eosinophils % (Manual) Basophils % (Manual) Nucleated RBC % Seg Neutrophils # Seg Neutrophils # Man Lymphocytes # (Manual) Monocytes # (Manual) Eosinophils # (Manual) Basophils # (Manual) PT INR Fibrinogen dRVVT Confirm Interp Factor V Activity POC ABG pH POC ABG pCO2 POC ABG pO2 ABG pO2 ABG HCO3 ABG Base Excess ABG Hemoglobin Oxyhemoglobin Sodium 136 L Potassium Chloride Carbon Dioxide 18 L BUN 121 H Creatinine 2.8 H Glucose 214 H POC Glucose 239 H 181 H Lactic Acid Calcium Ionized Calcium Phosphorus Magnesium Direct Bilirubin AST ALT Alkaline Phosphatase Lactate Dehydrogenase Troponin T C-Reactive Protein Total Protein Albumin Prealbumin Triglycerides Cholesterol LDL Cholesterol Direct HDL Cholesterol PTH Intact Urine pH Urine WBC (Auto) Urine Creatinine Urine Total Protein Fluid Total Protein Vancomycin Trough Rheumatoid Factor Complement C4 Miscellaneous Test Crossmatch 09/14/16 09/14/16 09/15/16 18:12 23:37 05:00 WBC 26.1 H RBC 3.05 L Hgb 7.2 L Hct 22.9 L MCV 75 L MCH 24 L MCHC RDW 19.0 H Plt Count Lymph % (Auto) [place] % (Auto) Lymph # [place] # Baso # Seg Neutrophils % Seg Neuts % (Manual) Lymphocytes % (Manual) Monocytes % (Manual) Eosinophils % (Manual) Basophils % (Manual) Nucleated RBC % Seg Neutrophils # Seg Neutrophils # Man Lymphocytes # (Manual) Monocytes # (Manual) Eosinophils # (Manual) Basophils # (Manual) PT INR Fibrinogen dRVVT Confirm Interp Factor V Activity POC ABG pH POC ABG pCO2 POC ABG pO2 ABG pO2 ABG HCO3 ABG Base Excess ABG Hemoglobin Oxyhemoglobin Sodium Potassium Chloride Carbon Dioxide BUN Creatinine Glucose POC Glucose 266 H 154 H Lactic Acid Calcium Ionized Calcium Phosphorus Magnesium Direct Bilirubin AST ALT Alkaline Phosphatase Lactate Dehydrogenase Troponin T C-Reactive Protein Total Protein Albumin Prealbumin Triglycerides Cholesterol LDL Cholesterol Direct HDL Cholesterol PTH Intact Urine pH Urine WBC (Auto) Urine Creatinine Urine Total Protein Fluid Total Protein Vancomycin Trough Rheumatoid Factor Complement C4 Miscellaneous Test Crossmatch 09/15/16 09/15/16 09/15/16 05:00 05:17 12:45 WBC RBC Hgb Hct MCV MCH MCHC RDW Plt Count Lymph % (Auto) [place] % (Auto) Lymph # [place] # Baso # Seg Neutrophils % Seg Neuts % (Manual) Lymphocytes % (Manual) Monocytes % (Manual) Eosinophils % (Manual) Basophils % (Manual) Nucleated RBC % Seg Neutrophils # Seg Neutrophils # Man Lymphocytes # (Manual) Monocytes # (Manual) Eosinophils # (Manual) Basophils # (Manual) PT INR Fibrinogen dRVVT Confirm Interp Factor V Activity POC ABG pH POC ABG pCO2 POC ABG pO2 ABG pO2 ABG HCO3 ABG Base Excess ABG Hemoglobin Oxyhemoglobin Sodium Potassium 5.2 H Chloride Carbon Dioxide 18 L BUN 139 H Creatinine 3.7 H Glucose 227 H POC Glucose 226 H 244 H Lactic Acid Calcium 8.3 L Ionized Calcium Phosphorus Magnesium Direct Bilirubin AST ALT Alkaline Phosphatase Lactate Dehydrogenase Troponin T C-Reactive Protein Total Protein Albumin Prealbumin Triglycerides Cholesterol LDL Cholesterol Direct HDL Cholesterol PTH Intact Urine pH Urine WBC (Auto) Urine Creatinine Urine Total Protein Fluid Total Protein Vancomycin Trough Rheumatoid Factor Complement C4 Miscellaneous Test Crossmatch 09/15/16 09/15/16 09/15/16 14:32 17:33 23:35 WBC RBC Hgb Hct MCV MCH MCHC RDW Plt Count Lymph % (Auto) [place] % (Auto) Lymph # [place] # Baso # Seg Neutrophils % Seg Neuts % (Manual) Lymphocytes % (Manual) Monocytes % (Manual) Eosinophils % (Manual) Basophils % (Manual) Nucleated RBC % Seg Neutrophils # Seg Neutrophils # Man Lymphocytes # (Manual) Monocytes # (Manual) Eosinophils # (Manual) Basophils # (Manual) PT INR Fibrinogen dRVVT Confirm Interp Factor V Activity POC ABG pH POC ABG pCO2 27.7 L POC ABG pO2 120 H ABG pO2 ABG HCO3 ABG Base Excess ABG Hemoglobin Oxyhemoglobin Sodium Potassium Chloride Carbon Dioxide BUN Creatinine Glucose POC Glucose 232 H 167 H Lactic Acid Calcium Ionized Calcium Phosphorus Magnesium Direct Bilirubin AST ALT Alkaline Phosphatase Lactate Dehydrogenase Troponin T C-Reactive Protein Total Protein Albumin Prealbumin Triglycerides Cholesterol LDL Cholesterol Direct HDL Cholesterol PTH Intact Urine pH Urine WBC (Auto) Urine Creatinine Urine Total Protein Fluid Total Protein Vancomycin Trough Rheumatoid Factor Complement C4 Miscellaneous Test Crossmatch 09/16/16 09/16/16 09/16/16 03:58 10:27 10:27 WBC 19.0 H RBC 2.77 L Hgb 6.5 L Hct 20.9 L MCV 76 L MCH 23 L MCHC RDW 19.3 H Plt Count Lymph % (Auto) 11.0 L [place] % (Auto) Lymph # [place] # 1.1 H Baso # Seg Neutrophils % 82.5 H Seg Neuts % (Manual) Lymphocytes % (Manual) Monocytes % (Manual) Eosinophils % (Manual) Basophils % (Manual) Nucleated RBC % Seg Neutrophils # 15.7 H Seg Neutrophils # Man Lymphocytes # (Manual) Monocytes # (Manual) Eosinophils # (Manual) Basophils # (Manual) PT INR Fibrinogen dRVVT Confirm Interp Factor V Activity POC ABG pH POC ABG pCO2 POC ABG pO2 ABG pO2 ABG HCO3 ABG Base Excess ABG Hemoglobin Oxyhemoglobin Sodium Potassium Chloride 109.3 H Carbon Dioxide 18 L BUN 139 H Creatinine 4.1 H Glucose 144 H POC Glucose 146 H Lactic Acid Calcium 8.1 L Ionized Calcium Phosphorus Magnesium Direct Bilirubin AST ALT Alkaline Phosphatase Lactate Dehydrogenase Troponin T C-Reactive Protein Total Protein Albumin Prealbumin Triglycerides Cholesterol LDL Cholesterol Direct HDL Cholesterol PTH Intact Urine pH Urine WBC (Auto) Urine Creatinine Urine Total Protein Fluid Total Protein Vancomycin Trough Rheumatoid Factor Complement C4 Miscellaneous Test Crossmatch 09/16/16 09/16/16 09/16/16 12:04 12:10 13:55 WBC RBC Hgb Hct MCV MCH MCHC RDW Plt Count Lymph % (Auto) [place] % (Auto) Lymph # [place] # Baso # Seg Neutrophils % Seg Neuts % (Manual) Lymphocytes % (Manual) Monocytes % (Manual) Eosinophils % (Manual) Basophils % (Manual) Nucleated RBC % Seg Neutrophils # Seg Neutrophils # Man Lymphocytes # (Manual) Monocytes # (Manual) Eosinophils # (Manual) Basophils # (Manual) PT INR Fibrinogen dRVVT Confirm Interp Factor V Activity POC ABG pH POC ABG pCO2 32.9 L POC ABG pO2 ABG pO2 ABG HCO3 ABG Base Excess ABG Hemoglobin Oxyhemoglobin Sodium Potassium Chloride Carbon Dioxide BUN Creatinine Glucose POC Glucose 185 H Lactic Acid Calcium Ionized Calcium Phosphorus Magnesium Direct Bilirubin AST ALT Alkaline Phosphatase Lactate Dehydrogenase Troponin T C-Reactive Protein Total Protein Albumin Prealbumin Triglycerides Cholesterol LDL Cholesterol Direct HDL Cholesterol PTH Intact Urine pH Urine WBC (Auto) Urine Creatinine Urine Total Protein Fluid Total Protein Vancomycin Trough Rheumatoid Factor Complement C4 Miscellaneous Test Crossmatch See Detail 09/16/16 09/16/16 09/16/16 17:55 19:19 23:48 WBC RBC Hgb Hct MCV MCH MCHC RDW Plt Count Lymph % (Auto) [place] % (Auto) Lymph # [place] # Baso # Seg Neutrophils % Seg Neuts % (Manual) Lymphocytes % (Manual) Monocytes % (Manual) Eosinophils % (Manual) Basophils % (Manual) Nucleated RBC % Seg Neutrophils # Seg Neutrophils # Man Lymphocytes # (Manual) Monocytes # (Manual) Eosinophils # (Manual) Basophils # (Manual) PT INR Fibrinogen dRVVT Confirm Interp Factor V Activity POC ABG pH POC ABG pCO2 POC ABG pO2 ABG pO2 ABG HCO3 ABG Base Excess ABG Hemoglobin Oxyhemoglobin Sodium Potassium Chloride Carbon Dioxide BUN Creatinine Glucose POC Glucose 222 H 107 H Lactic Acid Calcium Ionized Calcium Phosphorus Magnesium Direct Bilirubin AST ALT Alkaline Phosphatase Lactate Dehydrogenase Troponin T C-Reactive Protein Total Protein Albumin Prealbumin Triglycerides Cholesterol LDL Cholesterol Direct HDL Cholesterol PTH Intact Urine pH Urine WBC (Auto) Urine Creatinine 47.4 H Urine Total Protein 16 H Fluid Total Protein Vancomycin Trough Rheumatoid Factor Complement C4 Miscellaneous Test Crossmatch 09/17/16 09/17/16 09/17/16 03:45 03:45 04:55 WBC 19.6 H RBC 3.41 L Hgb 8.5 L Hct 26.7 L MCV 78 L MCH 25 L MCHC RDW 19.9 H Plt Count Lymph % (Auto) 9.3 L [place] % (Auto) Lymph # M[place]ick # 1.2 H Baso # Seg Neutrophils % 83.9 H Seg Neuts % (Manual) Lymphocytes % (Manual) Monocytes % (Manual) Eosinophils % (Manual) Basophils % (Manual) Nucleated RBC % Seg Neutrophils # 16.4 H Seg Neutrophils # Man Lymphocytes # (Manual) Monocytes # (Manual) Eosinophils # (Manual) Basophils # (Manual) PT INR Fibrinogen dRVVT Confirm Interp Factor V Activity POC ABG pH POC ABG pCO2 POC ABG pO2 ABG pO2 ABG HCO3 ABG Base Excess ABG Hemoglobin Oxyhemoglobin Sodium 146 H Potassium 5.1 H Chloride 110.9 H Carbon Dioxide 16 L BUN 146 H Creatinine 4.0 H Glucose 108 H POC Glucose 133 H Lactic Acid Calcium Ionized Calcium Phosphorus Magnesium 3.00 H Direct Bilirubin AST ALT Alkaline Phosphatase Lactate Dehydrogenase Troponin T C-Reactive Protein Total Protein Albumin Prealbumin Triglycerides Cholesterol LDL Cholesterol Direct HDL Cholesterol PTH Intact Urine pH Urine WBC (Auto) Urine Creatinine Urine Total Protein Fluid Total Protein Vancomycin Trough Rheumatoid Factor Complement C4 Miscellaneous Test Crossmatch 09/17/16 09/17/16 09/17/16 11:15 17:33 23:47 WBC RBC Hgb Hct MCV MCH MCHC RDW Plt Count Lymph % (Auto) [place] % (Auto) Lymph # M[place]ick # Baso # Seg Neutrophils % Seg Neuts % (Manual) Lymphocytes % (Manual) Monocytes % (Manual) Eosinophils % (Manual) Basophils % (Manual) Nucleated RBC % Seg Neutrophils # Seg Neutrophils # Man Lymphocytes # (Manual) Monocytes # (Manual) Eosinophils # (Manual) Basophils # (Manual) PT INR Fibrinogen dRVVT Confirm Interp Factor V Activity POC ABG pH POC ABG pCO2 POC ABG pO2 ABG pO2 ABG HCO3 ABG Base Excess ABG Hemoglobin Oxyhemoglobin Sodium Potassium Chloride Carbon Dioxide BUN Creatinine Glucose POC Glucose 176 H 246 H 148 H Lactic Acid Calcium Ionized Calcium Phosphorus Magnesium Direct Bilirubin AST ALT Alkaline Phosphatase Lactate Dehydrogenase Troponin T C-Reactive Protein Total Protein Albumin Prealbumin Triglycerides Cholesterol LDL Cholesterol Direct HDL Cholesterol PTH Intact Urine pH Urine WBC (Auto) Urine Creatinine Urine Total Protein Fluid Total Protein Vancomycin Trough Rheumatoid Factor Complement C4 Miscellaneous Test Crossmatch 09/18/16 09/18/16 09/18/16 05:33 08:31 08:31 WBC 18.0 H RBC 3.17 L Hgb 9.0 L Hct 25.7 L MCV MCH MCHC 35 H RDW 20.4 H Plt Count Lymph % (Auto) [place] % (Auto) Lymph # [place]ick # Baso # Seg Neutrophils % Seg Neuts % (Manual) Lymphocytes % (Manual) Monocytes % (Manual) Eosinophils % (Manual) Basophils % (Manual) Nucleated RBC % Seg Neutrophils # Seg Neutrophils # Man Lymphocytes # (Manual) Monocytes # (Manual) Eosinophils # (Manual) Basophils # (Manual) PT INR Fibrinogen dRVVT Confirm Interp Factor V Activity POC ABG pH POC ABG pCO2 POC ABG pO2 ABG pO2 ABG HCO3 ABG Base Excess ABG Hemoglobin Oxyhemoglobin Sodium Potassium Chloride Carbon Dioxide 15 L BUN 124 H Creatinine 3.8 H Glucose POC Glucose 120 H Lactic Acid Calcium 8.1 L Ionized Calcium Phosphorus Magnesium Direct Bilirubin AST ALT Alkaline Phosphatase Lactate Dehydrogenase Troponin T C-Reactive Protein Total Protein Albumin Prealbumin Triglycerides Cholesterol LDL Cholesterol Direct HDL Cholesterol PTH Intact Urine pH Urine WBC (Auto) Urine Creatinine Urine Total Protein Fluid Total Protein Vancomycin Trough Rheumatoid Factor Complement C4 Miscellaneous Test Crossmatch 09/18/16 09/18/16 09/18/16 12:03 15:34 17:50 WBC RBC Hgb Hct MCV MCH MCHC RDW Plt Count Lymph % (Auto) [place] % (Auto) Lymph # [place] # Baso # Seg Neutrophils % Seg Neuts % (Manual) Lymphocytes % (Manual) Monocytes % (Manual) Eosinophils % (Manual) Basophils % (Manual) Nucleated RBC % Seg Neutrophils # Seg Neutrophils # Man Lymphocytes # (Manual) Monocytes # (Manual) Eosinophils # (Manual) Basophils # (Manual) PT INR Fibrinogen dRVVT Confirm Interp Factor V Activity POC ABG pH POC ABG pCO2 25.7 L POC ABG pO2 66 L ABG pO2 ABG HCO3 ABG Base Excess ABG Hemoglobin Oxyhemoglobin Sodium Potassium Chloride Carbon Dioxide BUN Creatinine Glucose POC Glucose 156 H 220 H Lactic Acid Calcium Ionized Calcium Phosphorus Magnesium Direct Bilirubin AST ALT Alkaline Phosphatase Lactate Dehydrogenase Troponin T C-Reactive Protein Total Protein Albumin Prealbumin Triglycerides Cholesterol LDL Cholesterol Direct HDL Cholesterol PTH Intact Urine pH Urine WBC (Auto) Urine Creatinine Urine Total Protein Fluid Total Protein Vancomycin Trough Rheumatoid Factor Complement C4 Miscellaneous Test Crossmatch 09/19/16 09/19/16 09/19/16 06:21 09:50 09:50 WBC 17.1 H RBC 3.49 L Hgb 9.0 L Hct 28.1 L MCV MCH 26 L MCHC RDW 20.8 H Plt Count Lymph % (Auto) 11.5 L [place] % (Auto) 7.5 H Lymph # M[place]ick # 1.3 H Baso # Seg Neutrophils % 79.8 H Seg Neuts % (Manual) Lymphocytes % (Manual) Monocytes % (Manual) Eosinophils % (Manual) Basophils % (Manual) Nucleated RBC % Seg Neutrophils # 13.7 H Seg Neutrophils # Man Lymphocytes # (Manual) Monocytes # (Manual) Eosinophils # (Manual) Basophils # (Manual) PT INR Fibrinogen dRVVT Confirm Interp Factor V Activity POC ABG pH POC ABG pCO2 POC ABG pO2 ABG pO2 ABG HCO3 ABG Base Excess ABG Hemoglobin Oxyhemoglobin Sodium Potassium Chloride 108.6 H Carbon Dioxide 15 L BUN 125 H Creatinine 4.1 H Glucose 124 H POC Glucose 119 H Lactic Acid Calcium Ionized Calcium Phosphorus Magnesium Direct Bilirubin AST ALT Alkaline Phosphatase Lactate Dehydrogenase Troponin T C-Reactive Protein Total Protein Albumin Prealbumin Triglycerides Cholesterol LDL Cholesterol Direct HDL Cholesterol PTH Intact Urine pH Urine WBC (Auto) Urine Creatinine Urine Total Protein Fluid Total Protein Vancomycin Trough Rheumatoid Factor Complement C4 Miscellaneous Test Crossmatch 09/19/16 09/19/16 09/19/16 11:25 17:53 23:36 WBC RBC Hgb Hct MCV MCH MCHC RDW Plt Count Lymph % (Auto) [place] % (Auto) Lymph # [place] # Baso # Seg Neutrophils % Seg Neuts % (Manual) Lymphocytes % (Manual) Monocytes % (Manual) Eosinophils % (Manual) Basophils % (Manual) Nucleated RBC % Seg Neutrophils # Seg Neutrophils # Man Lymphocytes # (Manual) Monocytes # (Manual) Eosinophils # (Manual) Basophils # (Manual) PT INR Fibrinogen dRVVT Confirm Interp Factor V Activity POC ABG pH POC ABG pCO2 POC ABG pO2 ABG pO2 ABG HCO3 ABG Base Excess ABG Hemoglobin Oxyhemoglobin Sodium Potassium Chloride Carbon Dioxide BUN Creatinine Glucose POC Glucose 160 H 245 H 121 H Lactic Acid Calcium Ionized Calcium Phosphorus Magnesium Direct Bilirubin AST ALT Alkaline Phosphatase Lactate Dehydrogenase Troponin T C-Reactive Protein Total Protein Albumin Prealbumin Triglycerides Cholesterol LDL Cholesterol Direct HDL Cholesterol PTH Intact Urine pH Urine WBC (Auto) Urine Creatinine Urine Total Protein Fluid Total Protein Vancomycin Trough Rheumatoid Factor Complement C4 Miscellaneous Test Crossmatch 09/20/16 09/20/16 09/20/16 04:10 04:10 04:10 WBC 17.0 H RBC 3.21 L Hgb 8.2 L Hct 25.5 L MCV MCH 26 L MCHC RDW 20.9 H Plt Count Lymph % (Auto) [place] % (Auto) Lymph # [place]ick # Baso # Seg Neutrophils % Seg Neuts % (Manual) Lymphocytes % (Manual) Monocytes % (Manual) Eosinophils % (Manual) Basophils % (Manual) Nucleated RBC % Seg Neutrophils # Seg Neutrophils # Man Lymphocytes # (Manual) Monocytes # (Manual) Eosinophils # (Manual) Basophils # (Manual) PT INR Fibrinogen dRVVT Confirm Interp Factor V Activity POC ABG pH POC ABG pCO2 POC ABG pO2 ABG pO2 ABG HCO3 ABG Base Excess ABG Hemoglobin Oxyhemoglobin Sodium Potassium Chloride 111.0 H Carbon Dioxide 16 L BUN 129 H Creatinine 3.7 H Glucose 115 H POC Glucose Lactic Acid Calcium 8.2 L Ionized Calcium Phosphorus Magnesium Direct Bilirubin AST ALT Alkaline Phosphatase Lactate Dehydrogenase Troponin T C-Reactive Protein Total Protein Albumin Prealbumin Triglycerides 243 H Cholesterol LDL Cholesterol Direct HDL Cholesterol PTH Intact Urine pH Urine WBC (Auto) Urine Creatinine Urine Total Protein Fluid Total Protein Vancomycin Trough Rheumatoid Factor Complement C4 Miscellaneous Test Crossmatch 09/20/16 09/20/16 09/20/16 05:40 11:52 16:50 WBC RBC Hgb Hct MCV MCH MCHC RDW Plt Count Lymph % (Auto) [place] % (Auto) Lymph # [place] # Baso # Seg Neutrophils % Seg Neuts % (Manual) Lymphocytes % (Manual) Monocytes % (Manual) Eosinophils % (Manual) Basophils % (Manual) Nucleated RBC % Seg Neutrophils # Seg Neutrophils # Man Lymphocytes # (Manual) Monocytes # (Manual) Eosinophils # (Manual) Basophils # (Manual) PT INR Fibrinogen dRVVT Confirm Interp Factor V Activity POC ABG pH POC ABG pCO2 POC ABG pO2 ABG pO2 ABG HCO3 ABG Base Excess ABG Hemoglobin Oxyhemoglobin Sodium Potassium Chloride Carbon Dioxide BUN Creatinine Glucose POC Glucose 131 H 183 H 236 H Lactic Acid Calcium Ionized Calcium Phosphorus Magnesium Direct Bilirubin AST ALT Alkaline Phosphatase Lactate Dehydrogenase Troponin T C-Reactive Protein Total Protein Albumin Prealbumin Triglycerides Cholesterol LDL Cholesterol Direct HDL Cholesterol PTH Intact Urine pH Urine WBC (Auto) Urine Creatinine Urine Total Protein Fluid Total Protein Vancomycin Trough Rheumatoid Factor Complement C4 Miscellaneous Test Crossmatch 09/20/16 09/21/16 09/21/16 23:51 03:30 04:44 WBC RBC Hgb Hct MCV MCH MCHC RDW Plt Count Lymph % (Auto) M[place] % (Auto) Lymph # [place] # Baso # Seg Neutrophils % Seg Neuts % (Manual) Lymphocytes % (Manual) Monocytes % (Manual) Eosinophils % (Manual) Basophils % (Manual) Nucleated RBC % Seg Neutrophils # Seg Neutrophils # Man Lymphocytes # (Manual) Monocytes # (Manual) Eosinophils # (Manual) Basophils # (Manual) PT INR Fibrinogen dRVVT Confirm Interp Factor V Activity POC ABG pH POC ABG pCO2 POC ABG pO2 ABG pO2 ABG HCO3 ABG Base Excess ABG Hemoglobin Oxyhemoglobin Sodium Potassium Chloride Carbon Dioxide BUN Creatinine Glucose POC Glucose 114 H 141 H Lactic Acid Calcium Ionized Calcium Phosphorus Magnesium 2.70 H Direct Bilirubin AST ALT Alkaline Phosphatase Lactate Dehydrogenase Troponin T C-Reactive Protein Total Protein Albumin Prealbumin Triglycerides Cholesterol LDL Cholesterol Direct HDL Cholesterol PTH Intact Urine pH Urine WBC (Auto) Urine Creatinine Urine Total Protein Fluid Total Protein Vancomycin Trough Rheumatoid Factor Complement C4 Miscellaneous Test Crossmatch 09/21/16 09/21/16 09/21/16 07:45 07:45 10:01 WBC 13.8 H RBC 2.94 L Hgb 7.5 L Hct 23.5 L MCV MCH 26 L MCHC RDW 21.2 H Plt Count Lymph % (Auto) 6.9 L [place] % (Auto) 9.4 H Lymph # 0.9 L M[place]ick # 1.3 H Baso # Seg Neutrophils % 83.2 H Seg Neuts % (Manual) Lymphocytes % (Manual) Monocytes % (Manual) Eosinophils % (Manual) Basophils % (Manual) Nucleated RBC % Seg Neutrophils # 11.5 H Seg Neutrophils # Man Lymphocytes # (Manual) Monocytes # (Manual) Eosinophils # (Manual) Basophils # (Manual) PT INR Fibrinogen dRVVT Confirm Interp Factor V Activity POC ABG pH 7.308 L POC ABG pCO2 31.9 L POC ABG pO2 148 H ABG pO2 ABG HCO3 ABG Base Excess ABG Hemoglobin Oxyhemoglobin Sodium 147 H Potassium Chloride 114.2 H Carbon Dioxide 15 L BUN 120 H Creatinine 3.9 H Glucose 156 H POC Glucose Lactic Acid Calcium 8.2 L Ionized Calcium Phosphorus Magnesium Direct Bilirubin AST ALT Alkaline Phosphatase Lactate Dehydrogenase Troponin T C-Reactive Protein Total Protein Albumin Prealbumin Triglycerides Cholesterol LDL Cholesterol Direct HDL Cholesterol PTH Intact Urine pH Urine WBC (Auto) Urine Creatinine Urine Total Protein Fluid Total Protein Vancomycin Trough Rheumatoid Factor Complement C4 Miscellaneous Test Crossmatch 09/21/16 09/21/16 09/21/16 12:00 12:03 13:00 WBC RBC Hgb Hct MCV MCH MCHC RDW Plt Count Lymph % (Auto) [place] % (Auto) Lymph # [place] # Baso # Seg Neutrophils % Seg Neuts % (Manual) Lymphocytes % (Manual) Monocytes % (Manual) Eosinophils % (Manual) Basophils % (Manual) Nucleated RBC % Seg Neutrophils # Seg Neutrophils # Man Lymphocytes # (Manual) Monocytes # (Manual) Eosinophils # (Manual) Basophils # (Manual) PT INR Fibrinogen dRVVT Confirm Interp Factor V Activity POC ABG pH POC ABG pCO2 POC ABG pO2 ABG pO2 ABG HCO3 ABG Base Excess ABG Hemoglobin Oxyhemoglobin Sodium Potassium Chloride Carbon Dioxide BUN Creatinine Glucose POC Glucose 163 H Lactic Acid Calcium Ionized Calcium Phosphorus Magnesium Direct Bilirubin AST ALT Alkaline Phosphatase Lactate Dehydrogenase Troponin T C-Reactive Protein Total Protein Albumin Prealbumin Triglycerides Cholesterol LDL Cholesterol Direct HDL Cholesterol PTH Intact Urine pH Urine WBC (Auto) Urine Creatinine 54.8 H Urine Total Protein Fluid Total Protein Vancomycin Trough 2.3 L Rheumatoid Factor Complement C4 Miscellaneous Test Crossmatch 09/21/16 09/21/16 09/22/16 16:51 23:17 06:27 WBC RBC Hgb Hct MCV MCH MCHC RDW Plt Count Lymph % (Auto) [place] % (Auto) Lymph # M[place]orm[place] # Baso # Seg Neutrophils % Seg Neuts % (Manual) Lymphocytes % (Manual) Monocytes % (Manual) Eosinophils % (Manual) Basophils % (Manual) Nucleated RBC % Seg Neutrophils # Seg Neutrophils # Man Lymphocytes # (Manual) Monocytes # (Manual) Eosinophils # (Manual) Basophils # (Manual) PT INR Fibrinogen dRVVT Confirm Interp Factor V Activity POC ABG pH POC ABG pCO2 POC ABG pO2 ABG pO2 ABG HCO3 ABG Base Excess ABG Hemoglobin Oxyhemoglobin Sodium Potassium Chloride Carbon Dioxide BUN Creatinine Glucose POC Glucose 206 H 114 H 115 H Lactic Acid Calcium Ionized Calcium Phosphorus Magnesium Direct Bilirubin AST ALT Alkaline Phosphatase Lactate Dehydrogenase Troponin T C-Reactive Protein Total Protein Albumin Prealbumin Triglycerides Cholesterol LDL Cholesterol Direct HDL Cholesterol PTH Intact Urine pH Urine WBC (Auto) Urine Creatinine Urine Total Protein Fluid Total Protein Vancomycin Trough Rheumatoid Factor Complement C4 Miscellaneous Test Crossmatch 09/22/16 09/22/16 09/22/16 07:50 07:50 12:00 WBC 17.8 H RBC 3.04 L Hgb 8.0 L Hct 24.7 L MCV MCH 26 L MCHC RDW 21.6 H Plt Count Lymph % (Auto) [place] % (Auto) Lymph # M[place] # Baso # Seg Neutrophils % Seg Neuts % (Manual) Lymphocytes % (Manual) Monocytes % (Manual) Eosinophils % (Manual) Basophils % (Manual) Nucleated RBC % Seg Neutrophils # Seg Neutrophils # Man Lymphocytes # (Manual) Monocytes # (Manual) Eosinophils # (Manual) Basophils # (Manual) PT INR Fibrinogen dRVVT Confirm Interp Factor V Activity POC ABG pH POC ABG pCO2 POC ABG pO2 ABG pO2 ABG HCO3 ABG Base Excess ABG Hemoglobin Oxyhemoglobin Sodium 150 H Potassium Chloride 118.2 H Carbon Dioxide 14 L BUN 111 H Creatinine 3.7 H Glucose 157 H POC Glucose 183 H Lactic Acid Calcium Ionized Calcium Phosphorus Magnesium Direct Bilirubin AST ALT Alkaline Phosphatase Lactate Dehydrogenase Troponin T C-Reactive Protein Total Protein Albumin Prealbumin Triglycerides Cholesterol LDL Cholesterol Direct HDL Cholesterol PTH Intact Urine pH Urine WBC (Auto) Urine Creatinine Urine Total Protein Fluid Total Protein Vancomycin Trough Rheumatoid Factor Complement C4 Miscellaneous Test Crossmatch 09/22/16 09/22/16 09/23/16 17:29 23:10 05:00 WBC 19.2 H RBC 3.13 L Hgb 8.0 L Hct 25.2 L MCV MCH 26 L MCHC RDW 22.1 H Plt Count Lymph % (Auto) [place] % (Auto) Lymph # M[place]orm[place] # Baso # Seg Neutrophils % Seg Neuts % (Manual) 92.0 H Lymphocytes % (Manual) 3.0 L Monocytes % (Manual) Eosinophils % (Manual) Basophils % (Manual) Nucleated RBC % Seg Neutrophils # Seg Neutrophils # Man 17.7 H Lymphocytes # (Manual) 0.6 L Monocytes # (Manual) Eosinophils # (Manual) Basophils # (Manual) PT INR Fibrinogen dRVVT Confirm Interp Factor V Activity POC ABG pH POC ABG pCO2 POC ABG pO2 ABG pO2 ABG HCO3 ABG Base Excess ABG Hemoglobin Oxyhemoglobin Sodium Potassium Chloride Carbon Dioxide BUN Creatinine Glucose POC Glucose 197 H 169 H Lactic Acid Calcium Ionized Calcium Phosphorus Magnesium Direct Bilirubin AST ALT Alkaline Phosphatase Lactate Dehydrogenase Troponin T C-Reactive Protein Total Protein Albumin Prealbumin Triglycerides Cholesterol LDL Cholesterol Direct HDL Cholesterol PTH Intact Urine pH Urine WBC (Auto) Urine Creatinine Urine Total Protein Fluid Total Protein Vancomycin Trough Rheumatoid Factor Complement C4 Miscellaneous Test Crossmatch 09/23/16 09/23/16 09/23/16 05:00 05:00 05:10 WBC RBC Hgb Hct MCV MCH MCHC RDW Plt Count Lymph % (Auto) [place] % (Auto) Lymph # M[place]orm[place] # Baso # Seg Neutrophils % Seg Neuts % (Manual) Lymphocytes % (Manual) Monocytes % (Manual) Eosinophils % (Manual) Basophils % (Manual) Nucleated RBC % Seg Neutrophils # Seg Neutrophils # Man Lymphocytes # (Manual) Monocytes # (Manual) Eosinophils # (Manual) Basophils # (Manual) PT INR Fibrinogen dRVVT Confirm Interp Factor V Activity POC ABG pH POC ABG pCO2 POC ABG pO2 ABG pO2 ABG HCO3 ABG Base Excess ABG Hemoglobin Oxyhemoglobin Sodium 147 H Potassium 3.2 L Chloride 115.7 H Carbon Dioxide 13 L BUN 111 H Creatinine 3.8 H Glucose 194 H POC Glucose 188 H Lactic Acid Calcium 7.3 L D Ionized Calcium Phosphorus Magnesium Direct Bilirubin AST ALT Alkaline Phosphatase Lactate Dehydrogenase Troponin T C-Reactive Protein 3.20 H Total Protein Albumin Prealbumin Triglycerides Cholesterol LDL Cholesterol Direct HDL Cholesterol PTH Intact Urine pH Urine WBC (Auto) Urine Creatinine Urine Total Protein Fluid Total Protein Vancomycin Trough Rheumatoid Factor Complement C4 Miscellaneous Test Crossmatch 09/23/16 09/23/16 09/23/16 11:37 12:29 18:01 WBC RBC Hgb Hct MCV MCH MCHC RDW Plt Count Lymph % (Auto) [place] % (Auto) Lymph # [place]orm[place] # Baso # Seg Neutrophils % Seg Neuts % (Manual) Lymphocytes % (Manual) Monocytes % (Manual) Eosinophils % (Manual) Basophils % (Manual) Nucleated RBC % Seg Neutrophils # Seg Neutrophils # Man Lymphocytes # (Manual) Monocytes # (Manual) Eosinophils # (Manual) Basophils # (Manual) PT INR Fibrinogen dRVVT Confirm Interp Factor V Activity POC ABG pH POC ABG pCO2 18.9 L POC ABG pO2 143 H ABG pO2 ABG HCO3 ABG Base Excess ABG Hemoglobin Oxyhemoglobin Sodium Potassium Chloride Carbon Dioxide BUN Creatinine Glucose POC Glucose 153 H 108 H Lactic Acid Calcium Ionized Calcium Phosphorus Magnesium Direct Bilirubin AST ALT Alkaline Phosphatase Lactate Dehydrogenase Troponin T C-Reactive Protein Total Protein Albumin Prealbumin Triglycerides Cholesterol LDL Cholesterol Direct HDL Cholesterol PTH Intact Urine pH Urine WBC (Auto) Urine Creatinine Urine Total Protein Fluid Total Protein Vancomycin Trough Rheumatoid Factor Complement C4 Miscellaneous Test Crossmatch 09/23/16 09/23/16 09/24/16 21:19 23:43 05:16 WBC RBC Hgb Hct MCV MCH MCHC RDW Plt Count Lymph % (Auto) [place] % (Auto) Lymph # M[place]orm[place] # Baso # Seg Neutrophils % Seg Neuts % (Manual) Lymphocytes % (Manual) Monocytes % (Manual) Eosinophils % (Manual) Basophils % (Manual) Nucleated RBC % Seg Neutrophils # Seg Neutrophils # Man Lymphocytes # (Manual) Monocytes # (Manual) Eosinophils # (Manual) Basophils # (Manual) PT INR Fibrinogen dRVVT Confirm Interp Factor V Activity POC ABG pH POC ABG pCO2 17.3 L POC ABG pO2 112 H ABG pO2 ABG HCO3 ABG Base Excess ABG Hemoglobin Oxyhemoglobin Sodium Potassium Chloride Carbon Dioxide BUN Creatinine Glucose POC Glucose 143 H 164 H Lactic Acid Calcium Ionized Calcium Phosphorus Magnesium Direct Bilirubin AST ALT Alkaline Phosphatase Lactate Dehydrogenase Troponin T C-Reactive Protein Total Protein Albumin Prealbumin Triglycerides Cholesterol LDL Cholesterol Direct HDL Cholesterol PTH Intact Urine pH Urine WBC (Auto) Urine Creatinine Urine Total Protein Fluid Total Protein Vancomycin Trough Rheumatoid Factor Complement C4 Miscellaneous Test Crossmatch 09/24/16 09/24/16 09/24/16 05:21 11:58 17:06 WBC RBC Hgb Hct MCV MCH MCHC RDW Plt Count Lymph % (Auto) [place] % (Auto) Lymph # [place] # Baso # Seg Neutrophils % Seg Neuts % (Manual) Lymphocytes % (Manual) Monocytes % (Manual) Eosinophils % (Manual) Basophils % (Manual) Nucleated RBC % Seg Neutrophils # Seg Neutrophils # Man Lymphocytes # (Manual) Monocytes # (Manual) Eosinophils # (Manual) Basophils # (Manual) PT INR Fibrinogen dRVVT Confirm Interp Factor V Activity POC ABG pH POC ABG pCO2 POC ABG pO2 ABG pO2 ABG HCO3 ABG Base Excess ABG Hemoglobin Oxyhemoglobin Sodium Potassium Chloride Carbon Dioxide 10 L BUN 103 H Creatinine 4.3 H Glucose 163 H POC Glucose 173 H 167 H Lactic Acid Calcium 6.5 L Ionized Calcium Phosphorus Magnesium Direct Bilirubin AST ALT Alkaline Phosphatase Lactate Dehydrogenase Troponin T C-Reactive Protein Total Protein Albumin Prealbumin Triglycerides Cholesterol LDL Cholesterol Direct HDL Cholesterol PTH Intact Urine pH Urine WBC (Auto) Urine Creatinine Urine Total Protein Fluid Total Protein Vancomycin Trough Rheumatoid Factor Complement C4 Miscellaneous Test Crossmatch 09/24/16 09/24/16 09/24/16 20:15 21:02 23:48 WBC RBC Hgb Hct MCV MCH MCHC RDW Plt Count Lymph % (Auto) [place] % (Auto) Lymph # [place]orm[place] # Baso # Seg Neutrophils % Seg Neuts % (Manual) Lymphocytes % (Manual) Monocytes % (Manual) Eosinophils % (Manual) Basophils % (Manual) Nucleated RBC % Seg Neutrophils # Seg Neutrophils # Man Lymphocytes # (Manual) Monocytes # (Manual) Eosinophils # (Manual) Basophils # (Manual) PT INR Fibrinogen dRVVT Confirm Interp Factor V Activity POC ABG pH 7.288 L POC ABG pCO2 30.2 L 21.5 L POC ABG pO2 32 L 39 L ABG pO2 ABG HCO3 ABG Base Excess ABG Hemoglobin Oxyhemoglobin Sodium Potassium Chloride Carbon Dioxide BUN Creatinine Glucose POC Glucose 109 H Lactic Acid Calcium Ionized Calcium Phosphorus Magnesium Direct Bilirubin AST ALT Alkaline Phosphatase Lactate Dehydrogenase Troponin T C-Reactive Protein Total Protein Albumin Prealbumin Triglycerides Cholesterol LDL Cholesterol Direct HDL Cholesterol PTH Intact Urine pH Urine WBC (Auto) Urine Creatinine Urine Total Protein Fluid Total Protein Vancomycin Trough Rheumatoid Factor Complement C4 Miscellaneous Test Crossmatch 09/25/16 09/25/16 09/25/16 04:20 04:20 04:20 WBC RBC 2.58 L Hgb 7.0 L Hct 21.0 L MCV MCH 27 L MCHC RDW 23.8 H Plt Count Lymph % (Auto) [place] % (Auto) Lymph # [place] # Baso # Seg Neutrophils % Seg Neuts % (Manual) Lymphocytes % (Manual) 12.0 L Monocytes % (Manual) Eosinophils % (Manual) 7.0 H Basophils % (Manual) 2.0 H Nucleated RBC % Seg Neutrophils # Seg Neutrophils # Man Lymphocytes # (Manual) 0.9 L Monocytes # (Manual) Eosinophils # (Manual) 0.5 H Basophils # (Manual) PT INR Fibrinogen dRVVT Confirm Interp Factor V Activity POC ABG pH POC ABG pCO2 POC ABG pO2 ABG pO2 ABG HCO3 ABG Base Excess ABG Hemoglobin Oxyhemoglobin Sodium Potassium Chloride Carbon Dioxide 15 L BUN 72 H Creatinine 3.8 H Glucose POC Glucose Lactic Acid Calcium 6.0 L Ionized Calcium Phosphorus 4.60 H Magnesium 1.60 L Direct Bilirubin AST ALT Alkaline Phosphatase Lactate Dehydrogenase Troponin T C-Reactive Protein Total Protein Albumin Prealbumin Triglycerides Cholesterol LDL Cholesterol Direct HDL Cholesterol PTH Intact Urine pH Urine WBC (Auto) Urine Creatinine Urine Total Protein Fluid Total Protein Vancomycin Trough Rheumatoid Factor Complement C4 Miscellaneous Test Crossmatch 09/25/16 09/25/16 09/25/16 04:57 08:02 10:30 WBC RBC Hgb Hct MCV MCH MCHC RDW Plt Count Lymph % (Auto) [place] % (Auto) Lymph # [place] # Baso # Seg Neutrophils % Seg Neuts % (Manual) Lymphocytes % (Manual) Monocytes % (Manual) Eosinophils % (Manual) Basophils % (Manual) Nucleated RBC % Seg Neutrophils # Seg Neutrophils # Man Lymphocytes # (Manual) Monocytes # (Manual) Eosinophils # (Manual) Basophils # (Manual) PT INR Fibrinogen dRVVT Confirm Interp Factor V Activity POC ABG pH POC ABG pCO2 24.7 L POC ABG pO2 152 H ABG pO2 ABG HCO3 ABG Base Excess ABG Hemoglobin Oxyhemoglobin Sodium Potassium Chloride Carbon Dioxide BUN Creatinine Glucose POC Glucose 113 H Lactic Acid Calcium Ionized Calcium Phosphorus Magnesium Direct Bilirubin AST ALT Alkaline Phosphatase Lactate Dehydrogenase Troponin T C-Reactive Protein Total Protein Albumin Prealbumin Triglycerides Cholesterol LDL Cholesterol Direct HDL Cholesterol PTH Intact Urine pH Urine WBC (Auto) Urine Creatinine Urine Total Protein Fluid Total Protein Vancomycin Trough Rheumatoid Factor Complement C4 Miscellaneous Test Crossmatch See Detail 09/25/16 09/25/16 09/25/16 12:05 17:44 23:47 WBC RBC Hgb Hct MCV MCH MCHC RDW Plt Count Lymph % (Auto) M[place]ick % (Auto) Lymph # M[place]ormick # Baso # Seg Neutrophils % Seg Neuts % (Manual) Lymphocytes % (Manual) Monocytes % (Manual) Eosinophils % (Manual) Basophils % (Manual) Nucleated RBC % Seg Neutrophils # Seg Neutrophils # Man Lymphocytes # (Manual) Monocytes # (Manual) Eosinophils # (Manual) Basophils # (Manual) PT INR Fibrinogen dRVVT Confirm Interp Factor V Activity POC ABG pH POC ABG pCO2 POC ABG pO2 ABG pO2 ABG HCO3 ABG Base Excess ABG Hemoglobin Oxyhemoglobin Sodium Potassium Chloride Carbon Dioxide BUN Creatinine Glucose POC Glucose 117 H 119 H 150 H Lactic Acid Calcium Ionized Calcium Phosphorus Magnesium Direct Bilirubin AST ALT Alkaline Phosphatase Lactate Dehydrogenase Troponin T C-Reactive Protein Total Protein Albumin Prealbumin Triglycerides Cholesterol LDL Cholesterol Direct HDL Cholesterol PTH Intact Urine pH Urine WBC (Auto) Urine Creatinine Urine Total Protein Fluid Total Protein Vancomycin Trough Rheumatoid Factor Complement C4 Miscellaneous Test Crossmatch 09/26/16 09/26/16 09/26/16 04:25 04:25 04:25 WBC RBC 2.65 L Hgb 7.4 L Hct 21.6 L MCV MCH MCHC RDW 22.5 H Plt Count Lymph % (Auto) [place] % (Auto) Lymph # M[place]ick # Baso # Seg Neutrophils % Seg Neuts % (Manual) Lymphocytes % (Manual) 6.0 L Monocytes % (Manual) Eosinophils % (Manual) 11.0 H Basophils % (Manual) Nucleated RBC % Seg Neutrophils # Seg Neutrophils # Man Lymphocytes # (Manual) 0.4 L Monocytes # (Manual) Eosinophils # (Manual) 0.6 H Basophils # (Manual) PT INR Fibrinogen dRVVT Confirm Interp Factor V Activity POC ABG pH POC ABG pCO2 POC ABG pO2 ABG pO2 ABG HCO3 ABG Base Excess ABG Hemoglobin Oxyhemoglobin Sodium Potassium Chloride 97.0 L Carbon Dioxide 19 L BUN 43 H Creatinine 2.6 H Glucose 130 H POC Glucose Lactic Acid 4.40 H* Calcium 6.7 L Ionized Calcium Phosphorus Magnesium Direct Bilirubin AST ALT Alkaline Phosphatase Lactate Dehydrogenase Troponin T C-Reactive Protein Total Protein Albumin Prealbumin Triglycerides Cholesterol LDL Cholesterol Direct HDL Cholesterol PTH Intact Urine pH Urine WBC (Auto) Urine Creatinine Urine Total Protein Fluid Total Protein Vancomycin Trough Rheumatoid Factor Complement C4 Miscellaneous Test Crossmatch 09/26/16 09/26/16 09/26/16 05:20 11:44 12:12 WBC RBC Hgb Hct MCV MCH MCHC RDW Plt Count Lymph % (Auto) [place] % (Auto) Lymph # [place]ormick # Baso # Seg Neutrophils % Seg Neuts % (Manual) Lymphocytes % (Manual) Monocytes % (Manual) Eosinophils % (Manual) Basophils % (Manual) Nucleated RBC % Seg Neutrophils # Seg Neutrophils # Man Lymphocytes # (Manual) Monocytes # (Manual) Eosinophils # (Manual) Basophils # (Manual) PT INR Fibrinogen dRVVT Confirm Interp Factor V Activity POC ABG pH POC ABG pCO2 27.0 L POC ABG pO2 69 L ABG pO2 ABG HCO3 ABG Base Excess ABG Hemoglobin Oxyhemoglobin Sodium Potassium Chloride Carbon Dioxide BUN Creatinine Glucose POC Glucose 121 H 128 H Lactic Acid Calcium Ionized Calcium Phosphorus Magnesium Direct Bilirubin AST ALT Alkaline Phosphatase Lactate Dehydrogenase Troponin T C-Reactive Protein Total Protein Albumin Prealbumin Triglycerides Cholesterol LDL Cholesterol Direct HDL Cholesterol PTH Intact Urine pH Urine WBC (Auto) Urine Creatinine Urine Total Protein Fluid Total Protein Vancomycin Trough Rheumatoid Factor Complement C4 Miscellaneous Test Crossmatch 09/26/16 09/26/16 09/27/16 18:31 23:40 08:20 WBC RBC Hgb Hct MCV MCH MCHC RDW Plt Count Lymph % (Auto) [place] % (Auto) Lymph # [place] # Baso # Seg Neutrophils % Seg Neuts % (Manual) Lymphocytes % (Manual) Monocytes % (Manual) Eosinophils % (Manual) Basophils % (Manual) Nucleated RBC % Seg Neutrophils # Seg Neutrophils # Man Lymphocytes # (Manual) Monocytes # (Manual) Eosinophils # (Manual) Basophils # (Manual) PT INR Fibrinogen dRVVT Confirm Interp Factor V Activity POC ABG pH POC ABG pCO2 POC ABG pO2 ABG pO2 ABG HCO3 ABG Base Excess ABG Hemoglobin Oxyhemoglobin Sodium Potassium Chloride Carbon Dioxide BUN Creatinine Glucose POC Glucose 120 H 133 H Lactic Acid 4.10 H* Calcium Ionized Calcium Phosphorus Magnesium Direct Bilirubin AST ALT Alkaline Phosphatase Lactate Dehydrogenase Troponin T C-Reactive Protein Total Protein Albumin Prealbumin Triglycerides Cholesterol LDL Cholesterol Direct HDL Cholesterol PTH Intact Urine pH Urine WBC (Auto) Urine Creatinine Urine Total Protein Fluid Total Protein Vancomycin Trough Rheumatoid Factor Complement C4 Miscellaneous Test Crossmatch 09/27/16 09/27/16 09/27/16 11:23 15:00 18:15 WBC RBC Hgb Hct MCV MCH MCHC RDW Plt Count Lymph % (Auto) [place] % (Auto) Lymph # [place] # Baso # Seg Neutrophils % Seg Neuts % (Manual) Lymphocytes % (Manual) Monocytes % (Manual) Eosinophils % (Manual) Basophils % (Manual) Nucleated RBC % Seg Neutrophils # Seg Neutrophils # Man Lymphocytes # (Manual) Monocytes # (Manual) Eosinophils # (Manual) Basophils # (Manual) PT INR Fibrinogen dRVVT Confirm Interp Factor V Activity POC ABG pH 7.459 H POC ABG pCO2 27.1 L POC ABG pO2 140 H ABG pO2 ABG HCO3 ABG Base Excess ABG Hemoglobin Oxyhemoglobin Sodium Potassium Chloride Carbon Dioxide BUN Creatinine Glucose POC Glucose 114 H 127 H Lactic Acid Calcium Ionized Calcium Phosphorus Magnesium Direct Bilirubin AST ALT Alkaline Phosphatase Lactate Dehydrogenase Troponin T C-Reactive Protein Total Protein Albumin Prealbumin Triglycerides Cholesterol LDL Cholesterol Direct HDL Cholesterol PTH Intact Urine pH Urine WBC (Auto) Urine Creatinine Urine Total Protein Fluid Total Protein Vancomycin Trough Rheumatoid Factor Complement C4 Miscellaneous Test Crossmatch 09/27/16 09/27/16 09/28/16 Unknown Unknown 03:45 WBC RBC 2.49 L Hgb 6.8 L Hct 20.7 L MCV MCH 27 L MCHC RDW 22.1 H Plt Count Lymph % (Auto) [place] % (Auto) Lymph # [place] # Baso # Seg Neutrophils % Seg Neuts % (Manual) 32.0 L Lymphocytes % (Manual) 12.0 L Monocytes % (Manual) 11.0 H Eosinophils % (Manual) 10.0 H Basophils % (Manual) Nucleated RBC % Seg Neutrophils # Seg Neutrophils # Man Lymphocytes # (Manual) 1.0 L Monocytes # (Manual) 0.9 H Eosinophils # (Manual) 0.8 H Basophils # (Manual) PT INR Fibrinogen dRVVT Confirm Interp Factor V Activity POC ABG pH POC ABG pCO2 POC ABG pO2 ABG pO2 ABG HCO3 ABG Base Excess ABG Hemoglobin Oxyhemoglobin Sodium 135 L 135 L Potassium 3.5 L Chloride 93.6 L 94.4 L Carbon Dioxide 17 L 21 L BUN 45 H 28 H Creatinine 3.3 H 2.5 H Glucose 106 H POC Glucose Lactic Acid Calcium 7.3 L 7.1 L Ionized Calcium Phosphorus Magnesium Direct Bilirubin AST ALT Alkaline Phosphatase Lactate Dehydrogenase Troponin T C-Reactive Protein Total Protein Albumin Prealbumin Triglycerides Cholesterol LDL Cholesterol Direct HDL Cholesterol PTH Intact Urine pH Urine WBC (Auto) Urine Creatinine Urine Total Protein Fluid Total Protein Vancomycin Trough Rheumatoid Factor Complement C4 Miscellaneous Test Crossmatch 09/28/16 09/28/16 09/28/16 03:45 07:25 11:58 WBC 13.3 H RBC 3.01 L Hgb 8.4 L Hct 25.0 L MCV MCH MCHC RDW 20.5 H Plt Count 128 L Lymph % (Auto) [place] % (Auto) Lymph # [place]ick # Baso # Seg Neutrophils % Seg Neuts % (Manual) Lymphocytes % (Manual) 7.0 L Monocytes % (Manual) Eosinophils % (Manual) 6.0 H Basophils % (Manual) Nucleated RBC % Seg Neutrophils # Seg Neutrophils # Man Lymphocytes # (Manual) 0.9 L Monocytes # (Manual) Eosinophils # (Manual) 0.8 H Basophils # (Manual) PT INR Fibrinogen dRVVT Confirm Interp Factor V Activity POC ABG pH POC ABG pCO2 POC ABG pO2 ABG pO2 ABG HCO3 ABG Base Excess ABG Hemoglobin Oxyhemoglobin Sodium Potassium Chloride Carbon Dioxide BUN Creatinine Glucose POC Glucose 121 H Lactic Acid 4.50 H* Calcium Ionized Calcium Phosphorus Magnesium Direct Bilirubin AST ALT Alkaline Phosphatase Lactate Dehydrogenase Troponin T C-Reactive Protein Total Protein Albumin Prealbumin Triglycerides Cholesterol LDL Cholesterol Direct HDL Cholesterol PTH Intact Urine pH Urine WBC (Auto) Urine Creatinine Urine Total Protein Fluid Total Protein Vancomycin Trough Rheumatoid Factor Complement C4 Miscellaneous Test Crossmatch 09/29/16 09/29/16 09/29/16 06:45 06:45 06:45 WBC 14.9 H RBC 2.74 L Hgb 7.6 L Hct 23.2 L MCV MCH MCHC RDW 20.5 H Plt Count 81 L Lymph % (Auto) [place] % (Auto) Lymph # [place] # Baso # Seg Neutrophils % Seg Neuts % (Manual) 81.0 H Lymphocytes % (Manual) 4.0 L Monocytes % (Manual) Eosinophils % (Manual) Basophils % (Manual) Nucleated RBC % Seg Neutrophils # Seg Neutrophils # Man 12.1 H Lymphocytes # (Manual) 0.6 L Monocytes # (Manual) Eosinophils # (Manual) Basophils # (Manual) PT INR Fibrinogen dRVVT Confirm Interp Factor V Activity POC ABG pH POC ABG pCO2 POC ABG pO2 ABG pO2 ABG HCO3 ABG Base Excess ABG Hemoglobin Oxyhemoglobin Sodium 133 L Potassium 3.4 L Chloride 92.5 L Carbon Dioxide 21 L BUN 33 H Creatinine 3.0 H Glucose POC Glucose Lactic Acid Calcium 6.6 L Ionized Calcium Phosphorus Magnesium 1.40 L Direct Bilirubin 0.9 H AST ALT Alkaline Phosphatase Lactate Dehydrogenase Troponin T C-Reactive Protein Total Protein 4.3 L Albumin 1.3 L Prealbumin Triglycerides Cholesterol LDL Cholesterol Direct HDL Cholesterol PTH Intact Urine pH Urine WBC (Auto) Urine Creatinine Urine Total Protein Fluid Total Protein Vancomycin Trough Rheumatoid Factor Complement C4 Miscellaneous Test Crossmatch 09/29/16 09/29/16 09/30/16 17:52 20:12 00:07 WBC RBC Hgb Hct MCV MCH MCHC RDW Plt Count Lymph % (Auto) [place] % (Auto) Lymph # [place]ick # Baso # Seg Neutrophils % Seg Neuts % (Manual) Lymphocytes % (Manual) Monocytes % (Manual) Eosinophils % (Manual) Basophils % (Manual) Nucleated RBC % Seg Neutrophils # Seg Neutrophils # Man Lymphocytes # (Manual) Monocytes # (Manual) Eosinophils # (Manual) Basophils # (Manual) PT INR Fibrinogen dRVVT Confirm Interp Factor V Activity POC ABG pH POC ABG pCO2 POC ABG pO2 ABG pO2 ABG HCO3 ABG Base Excess ABG Hemoglobin Oxyhemoglobin Sodium Potassium Chloride Carbon Dioxide BUN Creatinine Glucose POC Glucose 50 L 51 L Lactic Acid Calcium Ionized Calcium Phosphorus Magnesium Direct Bilirubin AST ALT Alkaline Phosphatase Lactate Dehydrogenase Troponin T 0.204 H* C-Reactive Protein Total Protein Albumin Prealbumin Triglycerides Cholesterol 31 L LDL Cholesterol Direct 4 L HDL Cholesterol 3 L PTH Intact Urine pH Urine WBC (Auto) Urine Creatinine Urine Total Protein Fluid Total Protein Vancomycin Trough Rheumatoid Factor Complement C4 Miscellaneous Test Crossmatch 09/30/16 09/30/16 09/30/16 01:30 05:15 06:10 WBC RBC Hgb Hct MCV MCH MCHC RDW Plt Count Lymph % (Auto) [place] % (Auto) Lymph # [place]ormick # Baso # Seg Neutrophils % Seg Neuts % (Manual) Lymphocytes % (Manual) Monocytes % (Manual) Eosinophils % (Manual) Basophils % (Manual) Nucleated RBC % Seg Neutrophils # Seg Neutrophils # Man Lymphocytes # (Manual) Monocytes # (Manual) Eosinophils # (Manual) Basophils # (Manual) PT INR Fibrinogen dRVVT Confirm Interp Factor V Activity POC ABG pH POC ABG pCO2 POC ABG pO2 ABG pO2 ABG HCO3 ABG Base Excess ABG Hemoglobin Oxyhemoglobin Sodium 133 L Potassium 3.2 L Chloride 93.2 L Carbon Dioxide 19 L BUN 36 H Creatinine 3.2 H Glucose 104 H POC Glucose 167 H 146 H Lactic Acid Calcium 6.4 L Ionized Calcium Phosphorus Magnesium 1.60 L Direct Bilirubin AST ALT Alkaline Phosphatase Lactate Dehydrogenase Troponin T C-Reactive Protein Total Protein Albumin Prealbumin Triglycerides Cholesterol LDL Cholesterol Direct HDL Cholesterol PTH Intact Urine pH Urine WBC (Auto) Urine Creatinine Urine Total Protein Fluid Total Protein Vancomycin Trough Rheumatoid Factor Complement C4 Miscellaneous Test Crossmatch 09/30/16 09/30/16 09/30/16 11:26 13:39 18:38 WBC RBC Hgb Hct MCV MCH MCHC RDW Plt Count Lymph % (Auto) [place] % (Auto) Lymph # M[place]orm[place] # Baso # Seg Neutrophils % Seg Neuts % (Manual) Lymphocytes % (Manual) Monocytes % (Manual) Eosinophils % (Manual) Basophils % (Manual) Nucleated RBC % Seg Neutrophils # Seg Neutrophils # Man Lymphocytes # (Manual) Monocytes # (Manual) Eosinophils # (Manual) Basophils # (Manual) PT INR Fibrinogen dRVVT Confirm Interp Factor V Activity POC ABG pH 7.479 H POC ABG pCO2 29.8 L POC ABG pO2 117 H ABG pO2 ABG HCO3 ABG Base Excess ABG Hemoglobin Oxyhemoglobin Sodium Potassium Chloride Carbon Dioxide BUN Creatinine Glucose POC Glucose 140 H 122 H Lactic Acid Calcium Ionized Calcium Phosphorus Magnesium Direct Bilirubin AST ALT Alkaline Phosphatase Lactate Dehydrogenase Troponin T C-Reactive Protein Total Protein Albumin Prealbumin Triglycerides Cholesterol LDL Cholesterol Direct HDL Cholesterol PTH Intact Urine pH Urine WBC (Auto) Urine Creatinine Urine Total Protein Fluid Total Protein Vancomycin Trough Rheumatoid Factor Complement C4 Miscellaneous Test Crossmatch 10/01/16 10/01/16 10/01/16 06:00 06:00 12:37 WBC 12.6 H RBC 2.75 L Hgb 7.3 L Hct 23.3 L MCV MCH 27 L MCHC RDW 20.6 H Plt Count 72 L Lymph % (Auto) [place] % (Auto) Lymph # M[place]ormick # Baso # Seg Neutrophils % Seg Neuts % (Manual) 31.0 L Lymphocytes % (Manual) 8.0 L Monocytes % (Manual) Eosinophils % (Manual) Basophils % (Manual) Nucleated RBC % 3.0 H Seg Neutrophils # Seg Neutrophils # Man Lymphocytes # (Manual) 1.0 L Monocytes # (Manual) Eosinophils # (Manual) Basophils # (Manual) PT INR Fibrinogen dRVVT Confirm Interp Factor V Activity POC ABG pH POC ABG pCO2 POC ABG pO2 ABG pO2 ABG HCO3 ABG Base Excess ABG Hemoglobin Oxyhemoglobin Sodium 127 L Potassium Chloride 86.8 L Carbon Dioxide 20 L BUN 42 H Creatinine 3.5 H Glucose POC Glucose 65 L Lactic Acid Calcium 7.0 L Ionized Calcium Phosphorus Magnesium Direct Bilirubin AST ALT Alkaline Phosphatase Lactate Dehydrogenase Troponin T C-Reactive Protein Total Protein Albumin Prealbumin Triglycerides Cholesterol LDL Cholesterol Direct HDL Cholesterol PTH Intact Urine pH Urine WBC (Auto) Urine Creatinine Urine Total Protein Fluid Total Protein Vancomycin Trough Rheumatoid Factor Complement C4 Miscellaneous Test Crossmatch 10/01/16 10/01/16 10/02/16 17:39 23:32 00:59 WBC RBC Hgb Hct MCV MCH MCHC RDW Plt Count Lymph % (Auto) [place] % (Auto) Lymph # M[place]ormick # Baso # Seg Neutrophils % Seg Neuts % (Manual) Lymphocytes % (Manual) Monocytes % (Manual) Eosinophils % (Manual) Basophils % (Manual) Nucleated RBC % Seg Neutrophils # Seg Neutrophils # Man Lymphocytes # (Manual) Monocytes # (Manual) Eosinophils # (Manual) Basophils # (Manual) PT INR Fibrinogen dRVVT Confirm Interp Factor V Activity POC ABG pH POC ABG pCO2 POC ABG pO2 ABG pO2 ABG HCO3 ABG Base Excess ABG Hemoglobin Oxyhemoglobin Sodium Potassium Chloride Carbon Dioxide BUN Creatinine Glucose POC Glucose 107 H 52 L 145 H Lactic Acid Calcium Ionized Calcium Phosphorus Magnesium Direct Bilirubin AST ALT Alkaline Phosphatase Lactate Dehydrogenase Troponin T C-Reactive Protein Total Protein Albumin Prealbumin Triglycerides Cholesterol LDL Cholesterol Direct HDL Cholesterol PTH Intact Urine pH Urine WBC (Auto) Urine Creatinine Urine Total Protein Fluid Total Protein Vancomycin Trough Rheumatoid Factor Complement C4 Miscellaneous Test Crossmatch 10/02/16 10/02/16 10/02/16 10:30 10:50 10:50 WBC 14.7 H RBC 2.76 L Hgb 7.4 L Hct 23.6 L MCV MCH 27 L MCHC RDW 20.2 H Plt Count 79 L Lymph % (Auto) [place]ick % (Auto) Lymph # [place]ormick # Baso # Seg Neutrophils % Seg Neuts % (Manual) 86.0 H Lymphocytes % (Manual) 6.0 L Monocytes % (Manual) Eosinophils % (Manual) Basophils % (Manual) Nucleated RBC % Seg Neutrophils # Seg Neutrophils # Man 12.6 H Lymphocytes # (Manual) 0.9 L Monocytes # (Manual) Eosinophils # (Manual) Basophils # (Manual) PT INR Fibrinogen dRVVT Confirm Interp Factor V Activity POC ABG pH 7.486 H POC ABG pCO2 30.1 L POC ABG pO2 108 H ABG pO2 ABG HCO3 ABG Base Excess ABG Hemoglobin Oxyhemoglobin Sodium 131 L Potassium 3.4 L Chloride 89.9 L Carbon Dioxide BUN 26 H Creatinine 2.6 H Glucose POC Glucose Lactic Acid Calcium 7.0 L Ionized Calcium Phosphorus Magnesium Direct Bilirubin AST ALT Alkaline Phosphatase Lactate Dehydrogenase Troponin T C-Reactive Protein Total Protein Albumin Prealbumin Triglycerides Cholesterol LDL Cholesterol Direct HDL Cholesterol PTH Intact Urine pH Urine WBC (Auto) Urine Creatinine Urine Total Protein Fluid Total Protein Vancomycin Trough Rheumatoid Factor Complement C4 Miscellaneous Test Crossmatch 10/02/16 10/03/16 10/03/16 23:45 00:45 05:10 WBC 12.9 H RBC 2.77 L Hgb 7.6 L Hct 23.7 L MCV MCH 27 L MCHC RDW 19.7 H Plt Count 89 L Lymph % (Auto) [place] % (Auto) Lymph # M[place]ormick # Baso # Seg Neutrophils % Seg Neuts % (Manual) Lymphocytes % (Manual) 8.0 L Monocytes % (Manual) Eosinophils % (Manual) Basophils % (Manual) Nucleated RBC % Seg Neutrophils # 11.9 H Seg Neutrophils # Man Lymphocytes # (Manual) 1.0 L Monocytes # (Manual) Eosinophils # (Manual) Basophils # (Manual) PT INR Fibrinogen dRVVT Confirm Interp Factor V Activity POC ABG pH POC ABG pCO2 POC ABG pO2 ABG pO2 ABG HCO3 ABG Base Excess ABG Hemoglobin Oxyhemoglobin Sodium Potassium Chloride Carbon Dioxide BUN Creatinine Glucose POC Glucose 55 L 199 H Lactic Acid Calcium Ionized Calcium Phosphorus Magnesium Direct Bilirubin AST ALT Alkaline Phosphatase Lactate Dehydrogenase Troponin T C-Reactive Protein Total Protein Albumin Prealbumin Triglycerides Cholesterol LDL Cholesterol Direct HDL Cholesterol PTH Intact Urine pH Urine WBC (Auto) Urine Creatinine Urine Total Protein Fluid Total Protein Vancomycin Trough Rheumatoid Factor Complement C4 Miscellaneous Test Crossmatch 10/03/16 10/03/16 10/03/16 05:10 12:14 13:18 WBC RBC Hgb Hct MCV MCH MCHC RDW Plt Count Lymph % (Auto) [place] % (Auto) Lymph # M[place]ormick # Baso # Seg Neutrophils % Seg Neuts % (Manual) Lymphocytes % (Manual) Monocytes % (Manual) Eosinophils % (Manual) Basophils % (Manual) Nucleated RBC % Seg Neutrophils # Seg Neutrophils # Man Lymphocytes # (Manual) Monocytes # (Manual) Eosinophils # (Manual) Basophils # (Manual) PT INR Fibrinogen dRVVT Confirm Interp Factor V Activity POC ABG pH POC ABG pCO2 POC ABG pO2 ABG pO2 ABG HCO3 ABG Base Excess ABG Hemoglobin Oxyhemoglobin Sodium 129 L Potassium 3.3 L Chloride 88.8 L Carbon Dioxide 20 L BUN 29 H Creatinine 2.8 H Glucose POC Glucose 68 L 127 H Lactic Acid Calcium 7.2 L Ionized Calcium Phosphorus Magnesium Direct Bilirubin AST ALT Alkaline Phosphatase Lactate Dehydrogenase Troponin T C-Reactive Protein Total Protein Albumin Prealbumin Triglycerides Cholesterol LDL Cholesterol Direct HDL Cholesterol PTH Intact Urine pH Urine WBC (Auto) Urine Creatinine Urine Total Protein Fluid Total Protein Vancomycin Trough Rheumatoid Factor Complement C4 Miscellaneous Test Crossmatch 10/03/16 10/03/16 10/03/16 14:42 18:21 19:09 WBC RBC Hgb Hct MCV MCH MCHC RDW Plt Count Lymph % (Auto) [place] % (Auto) Lymph # [place] # Baso # Seg Neutrophils % Seg Neuts % (Manual) Lymphocytes % (Manual) Monocytes % (Manual) Eosinophils % (Manual) Basophils % (Manual) Nucleated RBC % Seg Neutrophils # Seg Neutrophils # Man Lymphocytes # (Manual) Monocytes # (Manual) Eosinophils # (Manual) Basophils # (Manual) PT INR Fibrinogen dRVVT Confirm Interp Factor V Activity POC ABG pH 7.499 H POC ABG pCO2 28.4 L POC ABG pO2 44 L ABG pO2 ABG HCO3 ABG Base Excess ABG Hemoglobin Oxyhemoglobin Sodium Potassium Chloride Carbon Dioxide BUN Creatinine Glucose POC Glucose 64 L 205 H Lactic Acid Calcium Ionized Calcium Phosphorus Magnesium Direct Bilirubin AST ALT Alkaline Phosphatase Lactate Dehydrogenase Troponin T C-Reactive Protein Total Protein Albumin Prealbumin Triglycerides Cholesterol LDL Cholesterol Direct HDL Cholesterol PTH Intact Urine pH Urine WBC (Auto) Urine Creatinine Urine Total Protein Fluid Total Protein Vancomycin Trough Rheumatoid Factor Complement C4 Miscellaneous Test Crossmatch 10/03/16 10/04/16 10/04/16 23:33 04:18 06:30 WBC RBC 2.54 L Hgb 7.1 L Hct 21.7 L MCV MCH MCHC RDW 19.5 H Plt Count 76 L Lymph % (Auto) [place] % (Auto) Lymph # [place]ick # Baso # Seg Neutrophils % Seg Neuts % (Manual) 88.0 H Lymphocytes % (Manual) 6.0 L Monocytes % (Manual) Eosinophils % (Manual) Basophils % (Manual) Nucleated RBC % Seg Neutrophils # Seg Neutrophils # Man 8.8 H Lymphocytes # (Manual) 0.6 L Monocytes # (Manual) Eosinophils # (Manual) Basophils # (Manual) PT INR Fibrinogen dRVVT Confirm Interp Factor V Activity POC ABG pH 7.461 H POC ABG pCO2 33.6 L POC ABG pO2 211 H ABG pO2 ABG HCO3 ABG Base Excess ABG Hemoglobin Oxyhemoglobin Sodium Potassium Chloride Carbon Dioxide BUN Creatinine Glucose POC Glucose 136 H Lactic Acid Calcium Ionized Calcium Phosphorus Magnesium Direct Bilirubin AST ALT Alkaline Phosphatase Lactate Dehydrogenase Troponin T C-Reactive Protein Total Protein Albumin Prealbumin Triglycerides Cholesterol LDL Cholesterol Direct HDL Cholesterol PTH Intact Urine pH Urine WBC (Auto) Urine Creatinine Urine Total Protein Fluid Total Protein Vancomycin Trough Rheumatoid Factor Complement C4 Miscellaneous Test Crossmatch 10/04/16 10/04/16 10/04/16 06:30 11:45 17:54 WBC RBC Hgb Hct MCV MCH MCHC RDW Plt Count Lymph % (Auto) [place] % (Auto) Lymph # [place] # Baso # Seg Neutrophils % Seg Neuts % (Manual) Lymphocytes % (Manual) Monocytes % (Manual) Eosinophils % (Manual) Basophils % (Manual) Nucleated RBC % Seg Neutrophils # Seg Neutrophils # Man Lymphocytes # (Manual) Monocytes # (Manual) Eosinophils # (Manual) Basophils # (Manual) PT INR Fibrinogen dRVVT Confirm Interp Factor V Activity POC ABG pH POC ABG pCO2 POC ABG pO2 ABG pO2 ABG HCO3 ABG Base Excess ABG Hemoglobin Oxyhemoglobin Sodium 128 L Potassium Chloride 87.4 L Carbon Dioxide 20 L BUN 34 H Creatinine 2.9 H Glucose 127 H POC Glucose 158 H 160 H Lactic Acid Calcium 7.4 L Ionized Calcium Phosphorus Magnesium Direct Bilirubin AST ALT Alkaline Phosphatase Lactate Dehydrogenase Troponin T C-Reactive Protein Total Protein Albumin Prealbumin Triglycerides Cholesterol LDL Cholesterol Direct HDL Cholesterol PTH Intact Urine pH Urine WBC (Auto) Urine Creatinine Urine Total Protein Fluid Total Protein Vancomycin Trough Rheumatoid Factor Complement C4 Miscellaneous Test Crossmatch 10/04/16 10/05/16 10/05/16 23:25 04:30 05:00 WBC RBC 2.64 L Hgb 7.5 L Hct 22.6 L MCV MCH MCHC RDW 19.3 H Plt Count 80 L Lymph % (Auto) [place] % (Auto) Lymph # [place]orm[place] # Baso # Seg Neutrophils % Seg Neuts % (Manual) Lymphocytes % (Manual) 12.0 L Monocytes % (Manual) Eosinophils % (Manual) Basophils % (Manual) Nucleated RBC % Seg Neutrophils # Seg Neutrophils # Man Lymphocytes # (Manual) Monocytes # (Manual) Eosinophils # (Manual) Basophils # (Manual) PT INR Fibrinogen dRVVT Confirm Interp Factor V Activity POC ABG pH 7.475 H POC ABG pCO2 33.3 L POC ABG pO2 140 H ABG pO2 ABG HCO3 ABG Base Excess ABG Hemoglobin Oxyhemoglobin Sodium Potassium Chloride Carbon Dioxide BUN Creatinine Glucose POC Glucose 141 H Lactic Acid Calcium Ionized Calcium Phosphorus Magnesium Direct Bilirubin AST ALT Alkaline Phosphatase Lactate Dehydrogenase Troponin T C-Reactive Protein Total Protein Albumin Prealbumin Triglycerides Cholesterol LDL Cholesterol Direct HDL Cholesterol PTH Intact Urine pH Urine WBC (Auto) Urine Creatinine Urine Total Protein Fluid Total Protein Vancomycin Trough Rheumatoid Factor Complement C4 Miscellaneous Test Crossmatch 10/05/16 10/05/16 10/05/16 05:00 05:09 12:58 WBC RBC Hgb Hct MCV MCH MCHC RDW Plt Count Lymph % (Auto) [place] % (Auto) Lymph # M[place]ormick # Baso # Seg Neutrophils % Seg Neuts % (Manual) Lymphocytes % (Manual) Monocytes % (Manual) Eosinophils % (Manual) Basophils % (Manual) Nucleated RBC % Seg Neutrophils # Seg Neutrophils # Man Lymphocytes # (Manual) Monocytes # (Manual) Eosinophils # (Manual) Basophils # (Manual) PT INR Fibrinogen dRVVT Confirm Interp Factor V Activity POC ABG pH POC ABG pCO2 POC ABG pO2 ABG pO2 ABG HCO3 ABG Base Excess ABG Hemoglobin Oxyhemoglobin Sodium 131 L Potassium Chloride 94.0 L Carbon Dioxide 20 L BUN 22 H Creatinine 2.0 H Glucose 123 H POC Glucose 166 H 179 H Lactic Acid Calcium 7.7 L Ionized Calcium Phosphorus 2.20 L D Magnesium Direct Bilirubin AST ALT Alkaline Phosphatase Lactate Dehydrogenase Troponin T C-Reactive Protein Total Protein Albumin Prealbumin Triglycerides Cholesterol LDL Cholesterol Direct HDL Cholesterol PTH Intact Urine pH Urine WBC (Auto) Urine Creatinine Urine Total Protein Fluid Total Protein Vancomycin Trough Rheumatoid Factor Complement C4 Miscellaneous Test Crossmatch 10/05/16 10/05/16 10/05/16 15:50 18:53 23:12 WBC RBC Hgb Hct MCV MCH MCHC RDW Plt Count Lymph % (Auto) [place] % (Auto) Lymph # M[place]ormick # Baso # Seg Neutrophils % Seg Neuts % (Manual) Lymphocytes % (Manual) Monocytes % (Manual) Eosinophils % (Manual) Basophils % (Manual) Nucleated RBC % Seg Neutrophils # Seg Neutrophils # Man Lymphocytes # (Manual) Monocytes # (Manual) Eosinophils # (Manual) Basophils # (Manual) PT INR Fibrinogen dRVVT Confirm Interp Factor V Activity POC ABG pH POC ABG pCO2 POC ABG pO2 ABG pO2 ABG HCO3 ABG Base Excess ABG Hemoglobin Oxyhemoglobin Sodium Potassium Chloride Carbon Dioxide BUN Creatinine Glucose POC Glucose 150 H 164 H Lactic Acid Calcium Ionized Calcium Phosphorus Magnesium Direct Bilirubin AST ALT Alkaline Phosphatase Lactate Dehydrogenase Troponin T C-Reactive Protein Total Protein Albumin Prealbumin Triglycerides Cholesterol LDL Cholesterol Direct HDL Cholesterol PTH Intact Urine pH Urine WBC (Auto) Urine Creatinine Urine Total Protein Fluid Total Protein Vancomycin Trough Rheumatoid Factor Complement C4 Miscellaneous Test Crossmatch See Detail 10/06/16 10/06/16 10/06/16 03:50 03:50 04:53 WBC RBC 3.00 L Hgb 8.6 L Hct 25.8 L MCV MCH MCHC RDW 17.9 H Plt Count 65 L Lymph % (Auto) [place] % (Auto) Lymph # [place] # Baso # Seg Neutrophils % Seg Neuts % (Manual) 30.0 L Lymphocytes % (Manual) 5.0 L Monocytes % (Manual) Eosinophils % (Manual) Basophils % (Manual) Nucleated RBC % Seg Neutrophils # Seg Neutrophils # Man Lymphocytes # (Manual) 0.4 L Monocytes # (Manual) Eosinophils # (Manual) Basophils # (Manual) PT INR Fibrinogen dRVVT Confirm Interp Factor V Activity POC ABG pH 7.310 L POC ABG pCO2 49.0 H POC ABG pO2 ABG pO2 ABG HCO3 ABG Base Excess ABG Hemoglobin Oxyhemoglobin Sodium 133 L Potassium Chloride 95.9 L Carbon Dioxide BUN 26 H Creatinine 2.0 H Glucose 116 H POC Glucose Lactic Acid Calcium 7.8 L Ionized Calcium Phosphorus Magnesium Direct Bilirubin AST ALT Alkaline Phosphatase Lactate Dehydrogenase Troponin T C-Reactive Protein Total Protein Albumin Prealbumin Triglycerides Cholesterol LDL Cholesterol Direct HDL Cholesterol PTH Intact Urine pH Urine WBC (Auto) Urine Creatinine Urine Total Protein Fluid Total Protein Vancomycin Trough Rheumatoid Factor Complement C4 Miscellaneous Test Crossmatch 10/06/16 10/06/16 10/06/16 05:23 11:52 18:34 WBC RBC Hgb Hct MCV MCH MCHC RDW Plt Count Lymph % (Auto) [place] % (Auto) Lymph # [place] # Baso # Seg Neutrophils % Seg Neuts % (Manual) Lymphocytes % (Manual) Monocytes % (Manual) Eosinophils % (Manual) Basophils % (Manual) Nucleated RBC % Seg Neutrophils # Seg Neutrophils # Man Lymphocytes # (Manual) Monocytes # (Manual) Eosinophils # (Manual) Basophils # (Manual) PT INR Fibrinogen dRVVT Confirm Interp Factor V Activity POC ABG pH POC ABG pCO2 POC ABG pO2 ABG pO2 ABG HCO3 ABG Base Excess ABG Hemoglobin Oxyhemoglobin Sodium Potassium Chloride Carbon Dioxide BUN Creatinine Glucose POC Glucose 126 H 116 H 129 H Lactic Acid Calcium Ionized Calcium Phosphorus Magnesium Direct Bilirubin AST ALT Alkaline Phosphatase Lactate Dehydrogenase Troponin T C-Reactive Protein Total Protein Albumin Prealbumin Triglycerides Cholesterol LDL Cholesterol Direct HDL Cholesterol PTH Intact Urine pH Urine WBC (Auto) Urine Creatinine Urine Total Protein Fluid Total Protein Vancomycin Trough Rheumatoid Factor Complement C4 Miscellaneous Test Crossmatch 10/07/16 10/07/16 10/07/16 03:45 05:00 10:00 WBC 17.0 H RBC 2.68 L Hgb 7.3 L Hct 25.3 L MCV MCH 27 L MCHC 29 L RDW 19.6 H Plt Count 74 L Lymph % (Auto) [place] % (Auto) Lymph # [place] # Baso # Seg Neutrophils % Seg Neuts % (Manual) Lymphocytes % (Manual) 12.0 L Monocytes % (Manual) Eosinophils % (Manual) Basophils % (Manual) Nucleated RBC % 4.0 H Seg Neutrophils # Seg Neutrophils # Man 10.7 H Lymphocytes # (Manual) Monocytes # (Manual) Eosinophils # (Manual) Basophils # (Manual) PT INR Fibrinogen dRVVT Confirm Interp Factor V Activity POC ABG pH POC ABG pCO2 POC ABG pO2 ABG pO2 ABG HCO3 ABG Base Excess ABG Hemoglobin Oxyhemoglobin Sodium 130 L Potassium 3.2 L Chloride 93.9 L Carbon Dioxide 20 L BUN 44 H Creatinine 2.7 H Glucose 129 H POC Glucose Lactic Acid Calcium 7.4 L Ionized Calcium Phosphorus Magnesium Direct Bilirubin AST ALT 6 L Alkaline Phosphatase 195 H Lactate Dehydrogenase Troponin T C-Reactive Protein Total Protein 4.9 L Albumin 1.0 L Prealbumin Triglycerides Cholesterol LDL Cholesterol Direct HDL Cholesterol PTH Intact Urine pH Urine WBC (Auto) Urine Creatinine Urine Total Protein Fluid Total Protein Vancomycin Trough Rheumatoid Factor Complement C4 Miscellaneous Test Flexitest 1 H Crossmatch 10/07/16 10/07/16 10/07/16 10:00 11:24 18:10 WBC RBC Hgb Hct MCV MCH MCHC RDW Plt Count Lymph % (Auto) [place] % (Auto) Lymph # [place] # Baso # Seg Neutrophils % Seg Neuts % (Manual) Lymphocytes % (Manual) Monocytes % (Manual) Eosinophils % (Manual) Basophils % (Manual) Nucleated RBC % Seg Neutrophils # Seg Neutrophils # Man Lymphocytes # (Manual) Monocytes # (Manual) Eosinophils # (Manual) Basophils # (Manual) PT INR Fibrinogen dRVVT Confirm Interp Factor V Activity POC ABG pH POC ABG pCO2 POC ABG pO2 ABG pO2 ABG HCO3 ABG Base Excess ABG Hemoglobin Oxyhemoglobin Sodium Potassium Chloride Carbon Dioxide BUN Creatinine Glucose POC Glucose 116 H 130 H Lactic Acid Calcium Ionized Calcium Phosphorus Magnesium Direct Bilirubin AST ALT Alkaline Phosphatase Lactate Dehydrogenase Troponin T C-Reactive Protein 19.40 H Total Protein Albumin Prealbumin Triglycerides Cholesterol LDL Cholesterol Direct HDL Cholesterol PTH Intact Urine pH Urine WBC (Auto) Urine Creatinine Urine Total Protein Fluid Total Protein Vancomycin Trough Rheumatoid Factor Complement C4 Miscellaneous Test Crossmatch 10/07/16 10/08/16 10/08/16 18:30 00:00 04:00 WBC RBC Hgb Hct MCV MCH MCHC RDW Plt Count Lymph % (Auto) [place] % (Auto) Lymph # [place] # Baso # Seg Neutrophils % Seg Neuts % (Manual) Lymphocytes % (Manual) Monocytes % (Manual) Eosinophils % (Manual) Basophils % (Manual) Nucleated RBC % Seg Neutrophils # Seg Neutrophils # Man Lymphocytes # (Manual) Monocytes # (Manual) Eosinophils # (Manual) Basophils # (Manual) PT INR Fibrinogen dRVVT Confirm Interp Factor V Activity POC ABG pH POC ABG pCO2 POC ABG pO2 ABG pO2 ABG HCO3 ABG Base Excess ABG Hemoglobin Oxyhemoglobin Sodium 132 L Potassium 3.3 L Chloride 93.6 L Carbon Dioxide 17 L BUN 59 H Creatinine 2.7 H Glucose 121 H POC Glucose 122 H Lactic Acid Calcium 7.6 L Ionized Calcium Phosphorus Magnesium Direct Bilirubin AST ALT Alkaline Phosphatase Lactate Dehydrogenase Troponin T C-Reactive Protein Total Protein Albumin Prealbumin Triglycerides Cholesterol LDL Cholesterol Direct HDL Cholesterol PTH Intact Urine pH Urine WBC (Auto) > 182.0 H Urine Creatinine Urine Total Protein Fluid Total Protein Vancomycin Trough Rheumatoid Factor Complement C4 Miscellaneous Test Crossmatch 10/08/16 10/08/16 10/08/16 04:30 05:30 11:51 WBC RBC 5.15 H Hgb 14.4 H D Hct 44.5 H D MCV MCH MCHC RDW 19.5 H Plt Count 56 L Lymph % (Auto) [place] % (Auto) Lymph # [place] # Baso # Seg Neutrophils % Seg Neuts % (Manual) 24.0 L Lymphocytes % (Manual) 8.0 L Monocytes % (Manual) Eosinophils % (Manual) Basophils % (Manual) Nucleated RBC % 9.0 H Seg Neutrophils # Seg Neutrophils # Man Lymphocytes # (Manual) 0.7 L Monocytes # (Manual) Eosinophils # (Manual) Basophils # (Manual) PT INR Fibrinogen dRVVT Confirm Interp Factor V Activity POC ABG pH POC ABG pCO2 POC ABG pO2 ABG pO2 ABG HCO3 ABG Base Excess ABG Hemoglobin Oxyhemoglobin Sodium Potassium Chloride Carbon Dioxide BUN Creatinine Glucose POC Glucose 125 H 150 H Lactic Acid Calcium Ionized Calcium Phosphorus Magnesium Direct Bilirubin AST ALT Alkaline Phosphatase Lactate Dehydrogenase Troponin T C-Reactive Protein Total Protein Albumin Prealbumin Triglycerides Cholesterol LDL Cholesterol Direct HDL Cholesterol PTH Intact Urine pH Urine WBC (Auto) Urine Creatinine Urine Total Protein Fluid Total Protein Vancomycin Trough Rheumatoid Factor Complement C4 Miscellaneous Test Crossmatch 10/08/16 10/08/16 10/08/16 12:49 17:07 19:30 WBC RBC Hgb 7.1 L D Hct 22.4 L D MCV MCH MCHC RDW Plt Count Lymph % (Auto) [place] % (Auto) Lymph # [place] # Baso # Seg Neutrophils % Seg Neuts % (Manual) Lymphocytes % (Manual) Monocytes % (Manual) Eosinophils % (Manual) Basophils % (Manual) Nucleated RBC % Seg Neutrophils # Seg Neutrophils # Man Lymphocytes # (Manual) Monocytes # (Manual) Eosinophils # (Manual) Basophils # (Manual) PT INR Fibrinogen dRVVT Confirm Interp Factor V Activity POC ABG pH POC ABG pCO2 28.2 L POC ABG pO2 111 H ABG pO2 ABG HCO3 ABG Base Excess ABG Hemoglobin Oxyhemoglobin Sodium Potassium Chloride Carbon Dioxide BUN Creatinine Glucose POC Glucose 145 H Lactic Acid Calcium Ionized Calcium Phosphorus Magnesium Direct Bilirubin AST ALT Alkaline Phosphatase Lactate Dehydrogenase Troponin T C-Reactive Protein Total Protein Albumin Prealbumin Triglycerides Cholesterol LDL Cholesterol Direct HDL Cholesterol PTH Intact Urine pH Urine WBC (Auto) Urine Creatinine Urine Total Protein Fluid Total Protein Vancomycin Trough Rheumatoid Factor Complement C4 Miscellaneous Test Crossmatch 10/08/16 10/09/16 10/09/16 19:30 03:45 03:45 WBC 12.6 H RBC 2.36 L Hgb 6.7 L Hct 21.1 L MCV MCH MCHC RDW 19.5 H Plt Count 75 L Lymph % (Auto) [place] % (Auto) Lymph # [place] # Baso # Seg Neutrophils % Seg Neuts % (Manual) Lymphocytes % (Manual) Monocytes % (Manual) 10.0 H Eosinophils % (Manual) Basophils % (Manual) Nucleated RBC % 3.0 H Seg Neutrophils # Seg Neutrophils # Man Lymphocytes # (Manual) Monocytes # (Manual) 1.3 H Eosinophils # (Manual) Basophils # (Manual) PT 18.0 H INR 1.41 H Fibrinogen dRVVT Confirm Interp Factor V Activity POC ABG pH POC ABG pCO2 POC ABG pO2 ABG pO2 ABG HCO3 ABG Base Excess ABG Hemoglobin Oxyhemoglobin Sodium 135 L Potassium Chloride Carbon Dioxide 17 L BUN 81 H Creatinine 3.2 H Glucose 109 H POC Glucose Lactic Acid Calcium 7.4 L Ionized Calcium Phosphorus 4.60 H D Magnesium Direct Bilirubin AST ALT Alkaline Phosphatase Lactate Dehydrogenase Troponin T C-Reactive Protein Total Protein Albumin Prealbumin Triglycerides Cholesterol LDL Cholesterol Direct HDL Cholesterol PTH Intact Urine pH Urine WBC (Auto) Urine Creatinine Urine Total Protein Fluid Total Protein Vancomycin Trough Rheumatoid Factor Complement C4 Miscellaneous Test Crossmatch 10/09/16 10/09/16 10/09/16 03:45 05:14 07:20 WBC RBC Hgb Hct MCV MCH MCHC RDW Plt Count Lymph % (Auto) [place] % (Auto) Lymph # [place]orm[place] # Baso # Seg Neutrophils % Seg Neuts % (Manual) Lymphocytes % (Manual) Monocytes % (Manual) Eosinophils % (Manual) Basophils % (Manual) Nucleated RBC % Seg Neutrophils # Seg Neutrophils # Man Lymphocytes # (Manual) Monocytes # (Manual) Eosinophils # (Manual) Basophils # (Manual) PT 19.0 H INR 1.51 H Fibrinogen dRVVT Confirm Interp Factor V Activity POC ABG pH POC ABG pCO2 POC ABG pO2 ABG pO2 ABG HCO3 ABG Base Excess ABG Hemoglobin Oxyhemoglobin Sodium Potassium Chloride Carbon Dioxide BUN Creatinine Glucose POC Glucose 151 H Lactic Acid Calcium Ionized Calcium Phosphorus Magnesium Direct Bilirubin AST ALT Alkaline Phosphatase Lactate Dehydrogenase Troponin T C-Reactive Protein Total Protein Albumin Prealbumin Triglycerides Cholesterol LDL Cholesterol Direct HDL Cholesterol PTH Intact Urine pH Urine WBC (Auto) Urine Creatinine Urine Total Protein Fluid Total Protein Vancomycin Trough Rheumatoid Factor Complement C4 Miscellaneous Test Crossmatch See Detail 10/09/16 10/09/16 10/09/16 11:46 16:20 16:43 WBC RBC Hgb 7.2 L Hct 22.2 L MCV MCH MCHC RDW Plt Count Lymph % (Auto) [place] % (Auto) Lymph # [place]ormick # Baso # Seg Neutrophils % Seg Neuts % (Manual) Lymphocytes % (Manual) Monocytes % (Manual) Eosinophils % (Manual) Basophils % (Manual) Nucleated RBC % Seg Neutrophils # Seg Neutrophils # Man Lymphocytes # (Manual) Monocytes # (Manual) Eosinophils # (Manual) Basophils # (Manual) PT INR Fibrinogen dRVVT Confirm Interp Factor V Activity POC ABG pH POC ABG pCO2 POC ABG pO2 ABG pO2 ABG HCO3 ABG Base Excess ABG Hemoglobin Oxyhemoglobin Sodium Potassium Chloride Carbon Dioxide BUN Creatinine Glucose POC Glucose 133 H 141 H Lactic Acid Calcium Ionized Calcium Phosphorus Magnesium Direct Bilirubin AST ALT Alkaline Phosphatase Lactate Dehydrogenase Troponin T C-Reactive Protein Total Protein Albumin Prealbumin Triglycerides Cholesterol LDL Cholesterol Direct HDL Cholesterol PTH Intact Urine pH Urine WBC (Auto) Urine Creatinine Urine Total Protein Fluid Total Protein Vancomycin Trough Rheumatoid Factor Complement C4 Miscellaneous Test Crossmatch 10/10/16 10/10/16 10/10/16 05:00 05:00 11:19 WBC 18.5 H RBC 2.19 L Hgb 6.4 L Hct 19.6 L* MCV MCH MCHC RDW 19.3 H Plt Count 93 L Lymph % (Auto) [place] % (Auto) Lymph # [place]orm[place] # Baso # Seg Neutrophils % Seg Neuts % (Manual) Lymphocytes % (Manual) 10.0 L Monocytes % (Manual) Eosinophils % (Manual) Basophils % (Manual) Nucleated RBC % 4.0 H Seg Neutrophils # Seg Neutrophils # Man 11.3 H Lymphocytes # (Manual) Monocytes # (Manual) Eosinophils # (Manual) Basophils # (Manual) PT INR Fibrinogen dRVVT Confirm Interp Factor V Activity POC ABG pH POC ABG pCO2 POC ABG pO2 ABG pO2 ABG HCO3 ABG Base Excess ABG Hemoglobin Oxyhemoglobin Sodium Potassium 5.7 H D Chloride Carbon Dioxide 16 L BUN 94 H Creatinine 3.1 H Glucose 131 H POC Glucose 153 H Lactic Acid Calcium 8.2 L Ionized Calcium Phosphorus 5.10 H Magnesium 2.40 H Direct Bilirubin 0.3 H AST ALT < 5 L Alkaline Phosphatase 319 H Lactate Dehydrogenase Troponin T C-Reactive Protein Total Protein 5.1 L Albumin 1.0 L Prealbumin Triglycerides Cholesterol LDL Cholesterol Direct HDL Cholesterol PTH Intact Urine pH Urine WBC (Auto) Urine Creatinine Urine Total Protein Fluid Total Protein Vancomycin Trough Rheumatoid Factor Complement C4 Miscellaneous Test Crossmatch 10/10/16 10/10/16 10/11/16 17:50 23:30 04:15 WBC RBC Hgb Hct MCV MCH MCHC RDW Plt Count Lymph % (Auto) [place] % (Auto) Lymph # [place] # Baso # Seg Neutrophils % Seg Neuts % (Manual) Lymphocytes % (Manual) Monocytes % (Manual) Eosinophils % (Manual) Basophils % (Manual) Nucleated RBC % Seg Neutrophils # Seg Neutrophils # Man Lymphocytes # (Manual) Monocytes # (Manual) Eosinophils # (Manual) Basophils # (Manual) PT INR Fibrinogen dRVVT Confirm Interp Factor V Activity POC ABG pH POC ABG pCO2 POC ABG pO2 ABG pO2 ABG HCO3 ABG Base Excess ABG Hemoglobin Oxyhemoglobin Sodium Potassium Chloride 96.4 L Carbon Dioxide 21 L BUN 57 H Creatinine 2.1 H Glucose 151 H POC Glucose 146 H 141 H Lactic Acid Calcium 8.3 L Ionized Calcium Phosphorus Magnesium Direct Bilirubin AST ALT Alkaline Phosphatase Lactate Dehydrogenase Troponin T C-Reactive Protein Total Protein Albumin Prealbumin Triglycerides Cholesterol LDL Cholesterol Direct HDL Cholesterol PTH Intact Urine pH Urine WBC (Auto) Urine Creatinine Urine Total Protein Fluid Total Protein Vancomycin Trough Rheumatoid Factor Complement C4 Miscellaneous Test Crossmatch 10/11/16 10/11/16 10/11/16 04:15 04:15 05:30 WBC 28.3 H RBC 3.12 L Hgb 9.3 L Hct 28.7 L D MCV MCH MCHC RDW 17.7 H Plt Count 128 L Lymph % (Auto) [place] % (Auto) Lymph # [place] # Baso # Seg Neutrophils % Seg Neuts % (Manual) Lymphocytes % (Manual) Monocytes % (Manual) Eosinophils % (Manual) Basophils % (Manual) Nucleated RBC % Seg Neutrophils # Seg Neutrophils # Man Lymphocytes # (Manual) Monocytes # (Manual) Eosinophils # (Manual) Basophils # (Manual) PT INR Fibrinogen dRVVT Confirm Interp Factor V Activity POC ABG pH POC ABG pCO2 POC ABG pO2 ABG pO2 ABG HCO3 ABG Base Excess ABG Hemoglobin Oxyhemoglobin Sodium Potassium Chloride Carbon Dioxide BUN Creatinine Glucose POC Glucose 167 H Lactic Acid Calcium Ionized Calcium Phosphorus Magnesium Direct Bilirubin AST ALT Alkaline Phosphatase Lactate Dehydrogenase Troponin T C-Reactive Protein 15.80 H Total Protein Albumin Prealbumin Triglycerides Cholesterol LDL Cholesterol Direct HDL Cholesterol PTH Intact Urine pH Urine WBC (Auto) Urine Creatinine Urine Total Protein Fluid Total Protein Vancomycin Trough Rheumatoid Factor Complement C4 Miscellaneous Test Crossmatch 10/11/16 10/11/16 10/11/16 11:40 15:49 23:57 WBC RBC Hgb Hct MCV MCH MCHC RDW Plt Count Lymph % (Auto) [place] % (Auto) Lymph # [place]orm[place] # Baso # Seg Neutrophils % Seg Neuts % (Manual) Lymphocytes % (Manual) Monocytes % (Manual) Eosinophils % (Manual) Basophils % (Manual) Nucleated RBC % Seg Neutrophils # Seg Neutrophils # Man Lymphocytes # (Manual) Monocytes # (Manual) Eosinophils # (Manual) Basophils # (Manual) PT INR Fibrinogen dRVVT Confirm Interp Factor V Activity POC ABG pH POC ABG pCO2 POC ABG pO2 ABG pO2 ABG HCO3 ABG Base Excess ABG Hemoglobin Oxyhemoglobin Sodium Potassium Chloride Carbon Dioxide BUN Creatinine Glucose POC Glucose 139 H 168 H 161 H Lactic Acid Calcium Ionized Calcium Phosphorus Magnesium Direct Bilirubin AST ALT Alkaline Phosphatase Lactate Dehydrogenase Troponin T C-Reactive Protein Total Protein Albumin Prealbumin Triglycerides Cholesterol LDL Cholesterol Direct HDL Cholesterol PTH Intact Urine pH Urine WBC (Auto) Urine Creatinine Urine Total Protein Fluid Total Protein Vancomycin Trough Rheumatoid Factor Complement C4 Miscellaneous Test Crossmatch 10/12/16 10/12/16 10/12/16 04:40 04:40 05:44 WBC 22.5 H RBC 2.88 L Hgb 8.8 L Hct 26.8 L MCV MCH MCHC RDW 17.8 H Plt Count Lymph % (Auto) [place] % (Auto) Lymph # [place] # Baso # Seg Neutrophils % Seg Neuts % (Manual) Lymphocytes % (Manual) Monocytes % (Manual) Eosinophils % (Manual) Basophils % (Manual) Nucleated RBC % Seg Neutrophils # Seg Neutrophils # Man Lymphocytes # (Manual) Monocytes # (Manual) Eosinophils # (Manual) Basophils # (Manual) PT INR Fibrinogen dRVVT Confirm Interp Factor V Activity POC ABG pH POC ABG pCO2 POC ABG pO2 ABG pO2 ABG HCO3 ABG Base Excess ABG Hemoglobin Oxyhemoglobin Sodium 134 L Potassium Chloride 93.0 L Carbon Dioxide BUN 74 H Creatinine 2.5 H Glucose 137 H POC Glucose 158 H Lactic Acid Calcium 8.2 L Ionized Calcium Phosphorus Magnesium Direct Bilirubin AST ALT Alkaline Phosphatase Lactate Dehydrogenase Troponin T C-Reactive Protein Total Protein Albumin Prealbumin Triglycerides Cholesterol LDL Cholesterol Direct HDL Cholesterol PTH Intact Urine pH Urine WBC (Auto) Urine Creatinine Urine Total Protein Fluid Total Protein Vancomycin Trough Rheumatoid Factor Complement C4 Miscellaneous Test Crossmatch 10/12/16 10/12/16 10/12/16 12:27 18:18 23:46 WBC RBC Hgb Hct MCV MCH MCHC RDW Plt Count Lymph % (Auto) [place] % (Auto) Lymph # M[place]ormick # Baso # Seg Neutrophils % Seg Neuts % (Manual) Lymphocytes % (Manual) Monocytes % (Manual) Eosinophils % (Manual) Basophils % (Manual) Nucleated RBC % Seg Neutrophils # Seg Neutrophils # Man Lymphocytes # (Manual) Monocytes # (Manual) Eosinophils # (Manual) Basophils # (Manual) PT INR Fibrinogen dRVVT Confirm Interp Factor V Activity POC ABG pH POC ABG pCO2 POC ABG pO2 ABG pO2 ABG HCO3 ABG Base Excess ABG Hemoglobin Oxyhemoglobin Sodium Potassium Chloride Carbon Dioxide BUN Creatinine Glucose POC Glucose 153 H 140 H 150 H Lactic Acid Calcium Ionized Calcium Phosphorus Magnesium Direct Bilirubin AST ALT Alkaline Phosphatase Lactate Dehydrogenase Troponin T C-Reactive Protein Total Protein Albumin Prealbumin Triglycerides Cholesterol LDL Cholesterol Direct HDL Cholesterol PTH Intact Urine pH Urine WBC (Auto) Urine Creatinine Urine Total Protein Fluid Total Protein Vancomycin Trough Rheumatoid Factor Complement C4 Miscellaneous Test Crossmatch 10/13/16 10/13/16 10/13/16 06:22 09:20 12:29 WBC RBC Hgb Hct MCV MCH MCHC RDW Plt Count Lymph % (Auto) [place] % (Auto) Lymph # [place]orm[place] # Baso # Seg Neutrophils % Seg Neuts % (Manual) Lymphocytes % (Manual) Monocytes % (Manual) Eosinophils % (Manual) Basophils % (Manual) Nucleated RBC % Seg Neutrophils # Seg Neutrophils # Man Lymphocytes # (Manual) Monocytes # (Manual) Eosinophils # (Manual) Basophils # (Manual) PT INR Fibrinogen dRVVT Confirm Interp Factor V Activity POC ABG pH POC ABG pCO2 POC ABG pO2 ABG pO2 ABG HCO3 ABG Base Excess ABG Hemoglobin Oxyhemoglobin Sodium Potassium Chloride Carbon Dioxide BUN Creatinine Glucose POC Glucose 165 H 193 H Lactic Acid Calcium Ionized Calcium Phosphorus Magnesium Direct Bilirubin AST ALT Alkaline Phosphatase Lactate Dehydrogenase Troponin T C-Reactive Protein Total Protein Albumin Prealbumin Triglycerides Cholesterol LDL Cholesterol Direct HDL Cholesterol PTH Intact Urine pH Urine WBC (Auto) Urine Creatinine Urine Total Protein Fluid Total Protein Vancomycin Trough Rheumatoid Factor Complement C4 Miscellaneous Test Flexitest 1 H Crossmatch 10/13/16 10/13/16 10/13/16 18:09 Unknown Unknown WBC 23.4 H RBC 2.83 L Hgb 8.7 L Hct 26.1 L MCV MCH MCHC RDW 18.1 H Plt Count Lymph % (Auto) [place] % (Auto) Lymph # [place]orm[place] # Baso # Seg Neutrophils % Seg Neuts % (Manual) Lymphocytes % (Manual) Monocytes % (Manual) Eosinophils % (Manual) Basophils % (Manual) Nucleated RBC % Seg Neutrophils # Seg Neutrophils # Man Lymphocytes # (Manual) Monocytes # (Manual) Eosinophils # (Manual) Basophils # (Manual) PT INR Fibrinogen dRVVT Confirm Interp Factor V Activity POC ABG pH POC ABG pCO2 POC ABG pO2 ABG pO2 ABG HCO3 ABG Base Excess ABG Hemoglobin Oxyhemoglobin Sodium Potassium Chloride 95.8 L Carbon Dioxide BUN 82 H Creatinine 2.6 H Glucose 152 H POC Glucose 166 H Lactic Acid Calcium Ionized Calcium Phosphorus Magnesium Direct Bilirubin AST ALT Alkaline Phosphatase Lactate Dehydrogenase Troponin T C-Reactive Protein Total Protein Albumin Prealbumin Triglycerides Cholesterol LDL Cholesterol Direct HDL Cholesterol PTH Intact Urine pH Urine WBC (Auto) Urine Creatinine Urine Total Protein Fluid Total Protein Vancomycin Trough Rheumatoid Factor Complement C4 Miscellaneous Test Crossmatch 10/14/16 10/14/16 10/14/16 05:38 06:35 08:10 WBC 20.7 H RBC 2.81 L Hgb 8.4 L Hct 27.2 L MCV MCH MCHC RDW 19.4 H Plt Count Lymph % (Auto) [place] % (Auto) Lymph # [place]orm[place] # Baso # Seg Neutrophils % Seg Neuts % (Manual) Lymphocytes % (Manual) Monocytes % (Manual) Eosinophils % (Manual) Basophils % (Manual) Nucleated RBC % Seg Neutrophils # Seg Neutrophils # Man Lymphocytes # (Manual) Monocytes # (Manual) Eosinophils # (Manual) Basophils # (Manual) PT INR Fibrinogen dRVVT Confirm Interp Factor V Activity POC ABG pH POC ABG pCO2 POC ABG pO2 ABG pO2 ABG HCO3 ABG Base Excess ABG Hemoglobin Oxyhemoglobin Sodium Potassium Chloride Carbon Dioxide BUN 58 H Creatinine 1.9 H Glucose 169 H POC Glucose 195 H Lactic Acid Calcium Ionized Calcium Phosphorus Magnesium Direct Bilirubin AST ALT Alkaline Phosphatase Lactate Dehydrogenase Troponin T C-Reactive Protein Total Protein Albumin Prealbumin Triglycerides Cholesterol LDL Cholesterol Direct HDL Cholesterol PTH Intact Urine pH Urine WBC (Auto) Urine Creatinine Urine Total Protein Fluid Total Protein Vancomycin Trough Rheumatoid Factor Complement C4 Miscellaneous Test Crossmatch 10/14/16 10/14/16 10/14/16 11:44 17:13 23:28 WBC RBC Hgb Hct MCV MCH MCHC RDW Plt Count Lymph % (Auto) [place] % (Auto) Lymph # [place]orm[place] # Baso # Seg Neutrophils % Seg Neuts % (Manual) Lymphocytes % (Manual) Monocytes % (Manual) Eosinophils % (Manual) Basophils % (Manual) Nucleated RBC % Seg Neutrophils # Seg Neutrophils # Man Lymphocytes # (Manual) Monocytes # (Manual) Eosinophils # (Manual) Basophils # (Manual) PT INR Fibrinogen dRVVT Confirm Interp Factor V Activity POC ABG pH POC ABG pCO2 POC ABG pO2 ABG pO2 ABG HCO3 ABG Base Excess ABG Hemoglobin Oxyhemoglobin Sodium Potassium Chloride Carbon Dioxide BUN Creatinine Glucose POC Glucose 174 H 121 H 151 H Lactic Acid Calcium Ionized Calcium Phosphorus Magnesium Direct Bilirubin AST ALT Alkaline Phosphatase Lactate Dehydrogenase Troponin T C-Reactive Protein Total Protein Albumin Prealbumin Triglycerides Cholesterol LDL Cholesterol Direct HDL Cholesterol PTH Intact Urine pH Urine WBC (Auto) Urine Creatinine Urine Total Protein Fluid Total Protein Vancomycin Trough Rheumatoid Factor Complement C4 Miscellaneous Test Crossmatch 10/15/16 10/15/16 10/15/16 05:06 12:26 17:48 WBC RBC Hgb Hct MCV MCH MCHC RDW Plt Count Lymph % (Auto) [place] % (Auto) Lymph # [place]ick # Baso # Seg Neutrophils % Seg Neuts % (Manual) Lymphocytes % (Manual) Monocytes % (Manual) Eosinophils % (Manual) Basophils % (Manual) Nucleated RBC % Seg Neutrophils # Seg Neutrophils # Man Lymphocytes # (Manual) Monocytes # (Manual) Eosinophils # (Manual) Basophils # (Manual) PT INR Fibrinogen dRVVT Confirm Interp Factor V Activity POC ABG pH POC ABG pCO2 POC ABG pO2 ABG pO2 ABG HCO3 ABG Base Excess ABG Hemoglobin Oxyhemoglobin Sodium Potassium Chloride Carbon Dioxide BUN Creatinine Glucose POC Glucose 151 H 149 H 153 H Lactic Acid Calcium Ionized Calcium Phosphorus Magnesium Direct Bilirubin AST ALT Alkaline Phosphatase Lactate Dehydrogenase Troponin T C-Reactive Protein Total Protein Albumin Prealbumin Triglycerides Cholesterol LDL Cholesterol Direct HDL Cholesterol PTH Intact Urine pH Urine WBC (Auto) Urine Creatinine Urine Total Protein Fluid Total Protein Vancomycin Trough Rheumatoid Factor Complement C4 Miscellaneous Test Crossmatch 10/15/16 10/15/16 10/16/16 Unknown Unknown 00:02 WBC 23.4 H RBC 2.78 L Hgb 8.5 L Hct 25.7 L MCV MCH MCHC RDW 18.7 H Plt Count Lymph % (Auto) [place] % (Auto) Lymph # [place] # Baso # Seg Neutrophils % Seg Neuts % (Manual) Lymphocytes % (Manual) Monocytes % (Manual) Eosinophils % (Manual) Basophils % (Manual) Nucleated RBC % Seg Neutrophils # Seg Neutrophils # Man Lymphocytes # (Manual) Monocytes # (Manual) Eosinophils # (Manual) Basophils # (Manual) PT INR Fibrinogen dRVVT Confirm Interp Factor V Activity POC ABG pH POC ABG pCO2 POC ABG pO2 ABG pO2 ABG HCO3 ABG Base Excess ABG Hemoglobin Oxyhemoglobin Sodium Potassium Chloride Carbon Dioxide BUN 73 H Creatinine 2.3 H Glucose 120 H POC Glucose 137 H Lactic Acid Calcium Ionized Calcium Phosphorus Magnesium Direct Bilirubin AST ALT Alkaline Phosphatase Lactate Dehydrogenase Troponin T C-Reactive Protein Total Protein Albumin Prealbumin Triglycerides Cholesterol LDL Cholesterol Direct HDL Cholesterol PTH Intact Urine pH Urine WBC (Auto) Urine Creatinine Urine Total Protein Fluid Total Protein Vancomycin Trough Rheumatoid Factor Complement C4 Miscellaneous Test Crossmatch 10/16/16 10/16/16 10/16/16 05:44 06:25 06:25 WBC 22.5 H RBC 2.76 L Hgb 8.3 L Hct 25.2 L MCV MCH MCHC RDW 18.3 H Plt Count Lymph % (Auto) [place] % (Auto) Lymph # [place] # Baso # Seg Neutrophils % Seg Neuts % (Manual) Lymphocytes % (Manual) Monocytes % (Manual) Eosinophils % (Manual) Basophils % (Manual) Nucleated RBC % Seg Neutrophils # Seg Neutrophils # Man Lymphocytes # (Manual) Monocytes # (Manual) Eosinophils # (Manual) Basophils # (Manual) PT INR Fibrinogen dRVVT Confirm Interp Factor V Activity POC ABG pH POC ABG pCO2 POC ABG pO2 ABG pO2 ABG HCO3 ABG Base Excess ABG Hemoglobin Oxyhemoglobin Sodium Potassium Chloride Carbon Dioxide BUN 92 H Creatinine 3.0 H Glucose 138 H POC Glucose 110 H Lactic Acid Calcium Ionized Calcium Phosphorus Magnesium Direct Bilirubin AST ALT Alkaline Phosphatase Lactate Dehydrogenase Troponin T C-Reactive Protein Total Protein Albumin Prealbumin Triglycerides Cholesterol LDL Cholesterol Direct HDL Cholesterol PTH Intact Urine pH Urine WBC (Auto) Urine Creatinine Urine Total Protein Fluid Total Protein Vancomycin Trough Rheumatoid Factor Complement C4 Miscellaneous Test Crossmatch 10/16/16 10/16/16 10/16/16 11:27 11:48 17:36 WBC RBC Hgb Hct MCV MCH MCHC RDW Plt Count Lymph % (Auto) [place] % (Auto) Lymph # [place] # Baso # Seg Neutrophils % Seg Neuts % (Manual) Lymphocytes % (Manual) Monocytes % (Manual) Eosinophils % (Manual) Basophils % (Manual) Nucleated RBC % Seg Neutrophils # Seg Neutrophils # Man Lymphocytes # (Manual) Monocytes # (Manual) Eosinophils # (Manual) Basophils # (Manual) PT INR Fibrinogen dRVVT Confirm Interp Factor V Activity POC ABG pH 7.582 H POC ABG pCO2 27.4 L POC ABG pO2 110 H ABG pO2 ABG HCO3 ABG Base Excess ABG Hemoglobin Oxyhemoglobin Sodium Potassium Chloride Carbon Dioxide BUN Creatinine Glucose POC Glucose 121 H 133 H Lactic Acid Calcium Ionized Calcium Phosphorus Magnesium Direct Bilirubin AST ALT Alkaline Phosphatase Lactate Dehydrogenase Troponin T C-Reactive Protein Total Protein Albumin Prealbumin Triglycerides Cholesterol LDL Cholesterol Direct HDL Cholesterol PTH Intact Urine pH Urine WBC (Auto) Urine Creatinine Urine Total Protein Fluid Total Protein Vancomycin Trough Rheumatoid Factor Complement C4 Miscellaneous Test Crossmatch 10/16/16 10/17/16 10/17/16 20:48 04:24 04:24 WBC 21.4 H RBC 2.72 L Hgb 8.0 L Hct 25.2 L MCV MCH MCHC RDW 18.0 H Plt Count Lymph % (Auto) [place] % (Auto) Lymph # [place] # Baso # Seg Neutrophils % Seg Neuts % (Manual) Lymphocytes % (Manual) Monocytes % (Manual) Eosinophils % (Manual) Basophils % (Manual) Nucleated RBC % Seg Neutrophils # Seg Neutrophils # Man Lymphocytes # (Manual) Monocytes # (Manual) Eosinophils # (Manual) Basophils # (Manual) PT INR Fibrinogen dRVVT Confirm Interp Factor V Activity POC ABG pH 7.561 H POC ABG pCO2 24.4 L POC ABG pO2 77 L ABG pO2 ABG HCO3 ABG Base Excess ABG Hemoglobin Oxyhemoglobin Sodium 148 H Potassium Chloride Carbon Dioxide BUN 104 H Creatinine 3.0 H Glucose 149 H POC Glucose Lactic Acid Calcium Ionized Calcium Phosphorus Magnesium Direct Bilirubin AST ALT Alkaline Phosphatase 138 H Lactate Dehydrogenase Troponin T C-Reactive Protein Total Protein 6.2 L Albumin 1.5 L Prealbumin Triglycerides Cholesterol LDL Cholesterol Direct HDL Cholesterol PTH Intact Urine pH Urine WBC (Auto) Urine Creatinine Urine Total Protein Fluid Total Protein Vancomycin Trough Rheumatoid Factor Complement C4 Miscellaneous Test Crossmatch 10/17/16 10/17/16 10/17/16 06:02 12:17 17:14 WBC RBC Hgb Hct MCV MCH MCHC RDW Plt Count Lymph % (Auto) [place] % (Auto) Lymph # [place] # Baso # Seg Neutrophils % Seg Neuts % (Manual) Lymphocytes % (Manual) Monocytes % (Manual) Eosinophils % (Manual) Basophils % (Manual) Nucleated RBC % Seg Neutrophils # Seg Neutrophils # Man Lymphocytes # (Manual) Monocytes # (Manual) Eosinophils # (Manual) Basophils # (Manual) PT INR Fibrinogen dRVVT Confirm Interp Factor V Activity POC ABG pH POC ABG pCO2 POC ABG pO2 ABG pO2 ABG HCO3 ABG Base Excess ABG Hemoglobin Oxyhemoglobin Sodium Potassium Chloride Carbon Dioxide BUN Creatinine Glucose POC Glucose 170 H 167 H 126 H Lactic Acid Calcium Ionized Calcium Phosphorus Magnesium Direct Bilirubin AST ALT Alkaline Phosphatase Lactate Dehydrogenase Troponin T C-Reactive Protein Total Protein Albumin Prealbumin Triglycerides Cholesterol LDL Cholesterol Direct HDL Cholesterol PTH Intact Urine pH Urine WBC (Auto) Urine Creatinine Urine Total Protein Fluid Total Protein Vancomycin Trough Rheumatoid Factor Complement C4 Miscellaneous Test Crossmatch 10/17/16 10/18/16 10/18/16 23:17 04:00 04:00 WBC 20.7 H RBC 2.47 L Hgb 7.4 L Hct 22.9 L MCV MCH MCHC RDW 17.5 H Plt Count Lymph % (Auto) [place] % (Auto) Lymph # [place] # Baso # Seg Neutrophils % Seg Neuts % (Manual) Lymphocytes % (Manual) Monocytes % (Manual) Eosinophils % (Manual) Basophils % (Manual) Nucleated RBC % Seg Neutrophils # Seg Neutrophils # Man Lymphocytes # (Manual) Monocytes # (Manual) Eosinophils # (Manual) Basophils # (Manual) PT INR Fibrinogen dRVVT Confirm Interp Factor V Activity POC ABG pH POC ABG pCO2 POC ABG pO2 ABG pO2 ABG HCO3 ABG Base Excess ABG Hemoglobin Oxyhemoglobin Sodium 149 H Potassium Chloride 107.9 H Carbon Dioxide 20 L BUN 117 H Creatinine 3.2 H Glucose 119 H POC Glucose 121 H Lactic Acid Calcium Ionized Calcium Phosphorus Magnesium Direct Bilirubin AST ALT Alkaline Phosphatase Lactate Dehydrogenase Troponin T C-Reactive Protein Total Protein Albumin Prealbumin Triglycerides Cholesterol LDL Cholesterol Direct HDL Cholesterol PTH Intact Urine pH Urine WBC (Auto) Urine Creatinine Urine Total Protein Fluid Total Protein Vancomycin Trough Rheumatoid Factor Complement C4 Miscellaneous Test Crossmatch 10/18/16 10/18/16 10/18/16 05:23 10:46 17:30 WBC RBC Hgb Hct MCV MCH MCHC RDW Plt Count Lymph % (Auto) [place] % (Auto) Lymph # [place] # Baso # Seg Neutrophils % Seg Neuts % (Manual) Lymphocytes % (Manual) Monocytes % (Manual) Eosinophils % (Manual) Basophils % (Manual) Nucleated RBC % Seg Neutrophils # Seg Neutrophils # Man Lymphocytes # (Manual) Monocytes # (Manual) Eosinophils # (Manual) Basophils # (Manual) PT INR Fibrinogen dRVVT Confirm Interp Factor V Activity POC ABG pH POC ABG pCO2 POC ABG pO2 ABG pO2 ABG HCO3 ABG Base Excess ABG Hemoglobin Oxyhemoglobin Sodium Potassium Chloride Carbon Dioxide BUN Creatinine Glucose POC Glucose 119 H 155 H 124 H Lactic Acid Calcium Ionized Calcium Phosphorus Magnesium Direct Bilirubin AST ALT Alkaline Phosphatase Lactate Dehydrogenase Troponin T C-Reactive Protein Total Protein Albumin Prealbumin Triglycerides Cholesterol LDL Cholesterol Direct HDL Cholesterol PTH Intact Urine pH Urine WBC (Auto) Urine Creatinine Urine Total Protein Fluid Total Protein Vancomycin Trough Rheumatoid Factor Complement C4 Miscellaneous Test Crossmatch 10/19/16 10/19/16 10/19/16 04:00 04:00 05:25 WBC 17.4 H RBC 2.54 L Hgb 7.7 L Hct 23.6 L MCV MCH MCHC RDW 17.3 H Plt Count Lymph % (Auto) [place] % (Auto) Lymph # [place] # Baso # Seg Neutrophils % Seg Neuts % (Manual) Lymphocytes % (Manual) Monocytes % (Manual) Eosinophils % (Manual) Basophils % (Manual) Nucleated RBC % Seg Neutrophils # Seg Neutrophils # Man Lymphocytes # (Manual) Monocytes # (Manual) Eosinophils # (Manual) Basophils # (Manual) PT INR Fibrinogen dRVVT Confirm Interp Factor V Activity POC ABG pH POC ABG pCO2 POC ABG pO2 ABG pO2 ABG HCO3 ABG Base Excess ABG Hemoglobin Oxyhemoglobin Sodium Potassium Chloride Carbon Dioxide BUN 72 H Creatinine 2.1 H Glucose 116 H POC Glucose 119 H Lactic Acid Calcium Ionized Calcium Phosphorus Magnesium Direct Bilirubin AST ALT Alkaline Phosphatase Lactate Dehydrogenase Troponin T C-Reactive Protein Total Protein Albumin Prealbumin Triglycerides Cholesterol LDL Cholesterol Direct HDL Cholesterol PTH Intact Urine pH Urine WBC (Auto) Urine Creatinine Urine Total Protein Fluid Total Protein Vancomycin Trough Rheumatoid Factor Complement C4 Miscellaneous Test Crossmatch 10/19/16 10/19/16 10/20/16 11:46 23:59 06:00 WBC RBC Hgb Hct MCV MCH MCHC RDW Plt Count Lymph % (Auto) [place] % (Auto) Lymph # [place] # Baso # Seg Neutrophils % Seg Neuts % (Manual) Lymphocytes % (Manual) Monocytes % (Manual) Eosinophils % (Manual) Basophils % (Manual) Nucleated RBC % Seg Neutrophils # Seg Neutrophils # Man Lymphocytes # (Manual) Monocytes # (Manual) Eosinophils # (Manual) Basophils # (Manual) PT INR Fibrinogen dRVVT Confirm Interp Factor V Activity POC ABG pH POC ABG pCO2 POC ABG pO2 ABG pO2 ABG HCO3 ABG Base Excess ABG Hemoglobin Oxyhemoglobin Sodium Potassium Chloride Carbon Dioxide 17 L BUN 94 H Creatinine 2.7 H Glucose POC Glucose 116 H 117 H Lactic Acid Calcium Ionized Calcium Phosphorus Magnesium Direct Bilirubin AST ALT Alkaline Phosphatase Lactate Dehydrogenase Troponin T C-Reactive Protein Total Protein Albumin Prealbumin Triglycerides Cholesterol LDL Cholesterol Direct HDL Cholesterol PTH Intact Urine pH Urine WBC (Auto) Urine Creatinine Urine Total Protein Fluid Total Protein Vancomycin Trough Rheumatoid Factor Complement C4 Miscellaneous Test Crossmatch 10/20/16 10/20/16 10/20/16 06:00 11:49 16:00 WBC 19.7 H RBC 2.51 L Hgb 7.7 L Hct 23.5 L MCV MCH MCHC RDW 17.5 H Plt Count Lymph % (Auto) [place] % (Auto) Lymph # [place] # Baso # Seg Neutrophils % Seg Neuts % (Manual) Lymphocytes % (Manual) Monocytes % (Manual) Eosinophils % (Manual) Basophils % (Manual) Nucleated RBC % Seg Neutrophils # Seg Neutrophils # Man Lymphocytes # (Manual) Monocytes # (Manual) Eosinophils # (Manual) Basophils # (Manual) PT INR Fibrinogen dRVVT Confirm Interp Factor V Activity POC ABG pH POC ABG pCO2 POC ABG pO2 ABG pO2 ABG HCO3 ABG Base Excess ABG Hemoglobin Oxyhemoglobin Sodium Potassium Chloride Carbon Dioxide BUN Creatinine Glucose POC Glucose 117 H Lactic Acid Calcium Ionized Calcium Phosphorus Magnesium Direct Bilirubin AST ALT Alkaline Phosphatase Lactate Dehydrogenase Troponin T C-Reactive Protein Total Protein Albumin Prealbumin Triglycerides Cholesterol LDL Cholesterol Direct HDL Cholesterol PTH Intact Urine pH Urine WBC (Auto) Urine Creatinine Urine Total Protein Fluid Total Protein Vancomycin Trough Rheumatoid Factor Complement C4 Miscellaneous Test Flexitest 1 H Crossmatch 10/20/16 10/20/16 10/21/16 18:36 23:39 04:00 WBC RBC Hgb Hct MCV MCH MCHC RDW Plt Count Lymph % (Auto) [place] % (Auto) Lymph # [place] # Baso # Seg Neutrophils % Seg Neuts % (Manual) Lymphocytes % (Manual) Monocytes % (Manual) Eosinophils % (Manual) Basophils % (Manual) Nucleated RBC % Seg Neutrophils # Seg Neutrophils # Man Lymphocytes # (Manual) Monocytes # (Manual) Eosinophils # (Manual) Basophils # (Manual) PT INR Fibrinogen dRVVT Confirm Interp Factor V Activity POC ABG pH POC ABG pCO2 POC ABG pO2 ABG pO2 ABG HCO3 ABG Base Excess ABG Hemoglobin Oxyhemoglobin Sodium Potassium 5.4 H D Chloride Carbon Dioxide 15 L BUN 110 H Creatinine 3.0 H Glucose POC Glucose 127 H 114 H Lactic Acid Calcium Ionized Calcium Phosphorus Magnesium Direct Bilirubin AST ALT Alkaline Phosphatase Lactate Dehydrogenase Troponin T C-Reactive Protein Total Protein Albumin Prealbumin Triglycerides Cholesterol LDL Cholesterol Direct HDL Cholesterol PTH Intact Urine pH Urine WBC (Auto) Urine Creatinine Urine Total Protein Fluid Total Protein Vancomycin Trough Rheumatoid Factor Complement C4 Miscellaneous Test Crossmatch 10/21/16 10/21/16 10/22/16 05:54 23:46 05:18 WBC RBC Hgb Hct MCV MCH MCHC RDW Plt Count Lymph % (Auto) [place] % (Auto) Lymph # [place] # Baso # Seg Neutrophils % Seg Neuts % (Manual) Lymphocytes % (Manual) Monocytes % (Manual) Eosinophils % (Manual) Basophils % (Manual) Nucleated RBC % Seg Neutrophils # Seg Neutrophils # Man Lymphocytes # (Manual) Monocytes # (Manual) Eosinophils # (Manual) Basophils # (Manual) PT INR Fibrinogen dRVVT Confirm Interp Factor V Activity POC ABG pH POC ABG pCO2 POC ABG pO2 ABG pO2 ABG HCO3 ABG Base Excess ABG Hemoglobin Oxyhemoglobin Sodium Potassium Chloride Carbon Dioxide BUN Creatinine Glucose POC Glucose 119 H 108 H 109 H Lactic Acid Calcium Ionized Calcium Phosphorus Magnesium Direct Bilirubin AST ALT Alkaline Phosphatase Lactate Dehydrogenase Troponin T C-Reactive Protein Total Protein Albumin Prealbumin Triglycerides Cholesterol LDL Cholesterol Direct HDL Cholesterol PTH Intact Urine pH Urine WBC (Auto) Urine Creatinine Urine Total Protein Fluid Total Protein Vancomycin Trough Rheumatoid Factor Complement C4 Miscellaneous Test Crossmatch 10/22/16 10/22/16 10/22/16 06:40 06:40 06:40 WBC 14.0 H RBC 2.03 L Hgb 7.0 L Hct 20.5 L MCV 98 H MCH 34 H MCHC 35 H RDW 17.8 H Plt Count Lymph % (Auto) [place] % (Auto) 9.9 H Lymph # [place] # 1.4 H Baso # 0.2 H Seg Neutrophils % 72.0 H Seg Neuts % (Manual) Lymphocytes % (Manual) Monocytes % (Manual) Eosinophils % (Manual) Basophils % (Manual) Nucleated RBC % Seg Neutrophils # 10.0 H Seg Neutrophils # Man Lymphocytes # (Manual) Monocytes # (Manual) Eosinophils # (Manual) Basophils # (Manual) PT INR Fibrinogen dRVVT Confirm Interp Factor V Activity POC ABG pH POC ABG pCO2 POC ABG pO2 ABG pO2 ABG HCO3 ABG Base Excess ABG Hemoglobin Oxyhemoglobin Sodium 130 L D Potassium Chloride 92.4 L Carbon Dioxide 20 L BUN 50 H Creatinine 1.6 H Glucose 589 H* POC Glucose Lactic Acid Calcium 7.8 L D Ionized Calcium Phosphorus Magnesium 1.60 L Direct Bilirubin AST ALT Alkaline Phosphatase Lactate Dehydrogenase Troponin T C-Reactive Protein Total Protein Albumin Prealbumin Triglycerides Cholesterol LDL Cholesterol Direct HDL Cholesterol PTH Intact Urine pH Urine WBC (Auto) Urine Creatinine Urine Total Protein Fluid Total Protein Vancomycin Trough Rheumatoid Factor Complement C4 Miscellaneous Test Crossmatch 10/22/16 10/22/16 10/22/16 11:39 16:44 23:36 WBC RBC Hgb Hct MCV MCH MCHC RDW Plt Count Lymph % (Auto) [place] % (Auto) Lymph # [place] # Baso # Seg Neutrophils % Seg Neuts % (Manual) Lymphocytes % (Manual) Monocytes % (Manual) Eosinophils % (Manual) Basophils % (Manual) Nucleated RBC % Seg Neutrophils # Seg Neutrophils # Man Lymphocytes # (Manual) Monocytes # (Manual) Eosinophils # (Manual) Basophils # (Manual) PT INR Fibrinogen dRVVT Confirm Interp Factor V Activity POC ABG pH POC ABG pCO2 POC ABG pO2 ABG pO2 ABG HCO3 ABG Base Excess ABG Hemoglobin Oxyhemoglobin Sodium Potassium Chloride Carbon Dioxide BUN Creatinine Glucose POC Glucose 142 H 163 H 123 H Lactic Acid Calcium Ionized Calcium Phosphorus Magnesium Direct Bilirubin AST ALT Alkaline Phosphatase Lactate Dehydrogenase Troponin T C-Reactive Protein Total Protein Albumin Prealbumin Triglycerides Cholesterol LDL Cholesterol Direct HDL Cholesterol PTH Intact Urine pH Urine WBC (Auto) Urine Creatinine Urine Total Protein Fluid Total Protein Vancomycin Trough Rheumatoid Factor Complement C4 Miscellaneous Test Crossmatch 10/23/16 10/23/16 10/23/16 04:58 06:00 12:12 WBC RBC Hgb Hct MCV MCH MCHC RDW Plt Count Lymph % (Auto) [place] % (Auto) Lymph # [place] # Baso # Seg Neutrophils % Seg Neuts % (Manual) Lymphocytes % (Manual) Monocytes % (Manual) Eosinophils % (Manual) Basophils % (Manual) Nucleated RBC % Seg Neutrophils # Seg Neutrophils # Man Lymphocytes # (Manual) Monocytes # (Manual) Eosinophils # (Manual) Basophils # (Manual) PT INR Fibrinogen dRVVT Confirm Interp Factor V Activity POC ABG pH POC ABG pCO2 POC ABG pO2 ABG pO2 ABG HCO3 ABG Base Excess ABG Hemoglobin Oxyhemoglobin Sodium 133 L Potassium 3.5 L Chloride 96.1 L Carbon Dioxide 18 L BUN 76 H Creatinine 2.1 H Glucose POC Glucose 133 H 138 H Lactic Acid Calcium 8.3 L Ionized Calcium Phosphorus Magnesium Direct Bilirubin AST ALT Alkaline Phosphatase Lactate Dehydrogenase Troponin T C-Reactive Protein Total Protein Albumin Prealbumin Triglycerides Cholesterol LDL Cholesterol Direct HDL Cholesterol PTH Intact Urine pH Urine WBC (Auto) Urine Creatinine Urine Total Protein Fluid Total Protein Vancomycin Trough Rheumatoid Factor Complement C4 Miscellaneous Test Crossmatch 10/23/16 10/23/16 10/24/16 16:53 23:37 04:00 WBC RBC Hgb Hct MCV MCH MCHC RDW Plt Count Lymph % (Auto) [place] % (Auto) Lymph # [place] # Baso # Seg Neutrophils % Seg Neuts % (Manual) Lymphocytes % (Manual) Monocytes % (Manual) Eosinophils % (Manual) Basophils % (Manual) Nucleated RBC % Seg Neutrophils # Seg Neutrophils # Man Lymphocytes # (Manual) Monocytes # (Manual) Eosinophils # (Manual) Basophils # (Manual) PT INR Fibrinogen dRVVT Confirm Interp Factor V Activity POC ABG pH POC ABG pCO2 POC ABG pO2 ABG pO2 ABG HCO3 ABG Base Excess ABG Hemoglobin Oxyhemoglobin Sodium 131 L Potassium Chloride 94.5 L Carbon Dioxide 19 L BUN 97 H Creatinine 2.6 H Glucose 110 H POC Glucose 125 H 123 H Lactic Acid Calcium 8.3 L Ionized Calcium Phosphorus Magnesium Direct Bilirubin AST ALT Alkaline Phosphatase Lactate Dehydrogenase Troponin T C-Reactive Protein Total Protein Albumin Prealbumin Triglycerides Cholesterol LDL Cholesterol Direct HDL Cholesterol PTH Intact Urine pH Urine WBC (Auto) Urine Creatinine Urine Total Protein Fluid Total Protein Vancomycin Trough Rheumatoid Factor Complement C4 Miscellaneous Test Crossmatch 10/24/16 10/24/16 10/24/16 07:49 11:39 17:52 WBC RBC Hgb 6.0 L Hct 19.7 L* MCV MCH MCHC RDW Plt Count Lymph % (Auto) [place] % (Auto) Lymph # [place] # Baso # Seg Neutrophils % Seg Neuts % (Manual) Lymphocytes % (Manual) Monocytes % (Manual) Eosinophils % (Manual) Basophils % (Manual) Nucleated RBC % Seg Neutrophils # Seg Neutrophils # Man Lymphocytes # (Manual) Monocytes # (Manual) Eosinophils # (Manual) Basophils # (Manual) PT INR Fibrinogen dRVVT Confirm Interp Factor V Activity POC ABG pH POC ABG pCO2 POC ABG pO2 ABG pO2 ABG HCO3 ABG Base Excess ABG Hemoglobin Oxyhemoglobin Sodium Potassium Chloride Carbon Dioxide BUN Creatinine Glucose POC Glucose 106 H 158 H Lactic Acid Calcium Ionized Calcium Phosphorus Magnesium Direct Bilirubin AST ALT Alkaline Phosphatase Lactate Dehydrogenase Troponin T C-Reactive Protein Total Protein Albumin Prealbumin Triglycerides Cholesterol LDL Cholesterol Direct HDL Cholesterol PTH Intact Urine pH Urine WBC (Auto) Urine Creatinine Urine Total Protein Fluid Total Protein Vancomycin Trough Rheumatoid Factor Complement C4 Miscellaneous Test Crossmatch 10/24/16 10/24/16 10/24/16 20:00 22:27 Unknown WBC RBC Hgb 9.4 L D Hct 27.5 L D MCV MCH MCHC RDW Plt Count Lymph % (Auto) [place] % (Auto) Lymph # [place] # Baso # Seg Neutrophils % Seg Neuts % (Manual) Lymphocytes % (Manual) Monocytes % (Manual) Eosinophils % (Manual) Basophils % (Manual) Nucleated RBC % Seg Neutrophils # Seg Neutrophils # Man Lymphocytes # (Manual) Monocytes # (Manual) Eosinophils # (Manual) Basophils # (Manual) PT INR Fibrinogen dRVVT Confirm Interp Factor V Activity POC ABG pH POC ABG pCO2 POC ABG pO2 ABG pO2 ABG HCO3 ABG Base Excess ABG Hemoglobin Oxyhemoglobin Sodium Potassium Chloride Carbon Dioxide BUN Creatinine Glucose POC Glucose 125 H Lactic Acid Calcium Ionized Calcium Phosphorus Magnesium Direct Bilirubin AST ALT Alkaline Phosphatase Lactate Dehydrogenase Troponin T C-Reactive Protein Total Protein Albumin Prealbumin Triglycerides Cholesterol LDL Cholesterol Direct HDL Cholesterol PTH Intact Urine pH Urine WBC (Auto) Urine Creatinine Urine Total Protein Fluid Total Protein Vancomycin Trough Rheumatoid Factor Complement C4 Miscellaneous Test Crossmatch See Detail 10/25/16 10/25/16 10/25/16 04:00 04:00 04:00 WBC 14.2 H RBC 2.98 L Hgb 9.0 L Hct 26.2 L MCV MCH MCHC RDW 16.6 H Plt Count Lymph % (Auto) [place] % (Auto) 10.7 H Lymph # [place] # 1.5 H Baso # Seg Neutrophils % 73.6 H Seg Neuts % (Manual) Lymphocytes % (Manual) Monocytes % (Manual) Eosinophils % (Manual) Basophils % (Manual) Nucleated RBC % Seg Neutrophils # 10.5 H Seg Neutrophils # Man Lymphocytes # (Manual) Monocytes # (Manual) Eosinophils # (Manual) Basophils # (Manual) PT INR Fibrinogen dRVVT Confirm Interp Factor V Activity POC ABG pH POC ABG pCO2 POC ABG pO2 ABG pO2 ABG HCO3 ABG Base Excess ABG Hemoglobin Oxyhemoglobin Sodium 132 L Potassium Chloride 94.7 L Carbon Dioxide BUN 51 H Creatinine 1.6 H Glucose 130 H POC Glucose Lactic Acid Calcium 8.3 L Ionized Calcium Phosphorus 1.60 L D Magnesium Direct Bilirubin AST ALT Alkaline Phosphatase Lactate Dehydrogenase Troponin T C-Reactive Protein Total Protein Albumin Prealbumin Triglycerides Cholesterol LDL Cholesterol Direct HDL Cholesterol PTH Intact Urine pH Urine WBC (Auto) Urine Creatinine Urine Total Protein Fluid Total Protein Vancomycin Trough Rheumatoid Factor Complement C4 Miscellaneous Test Crossmatch 10/25/16 10/25/16 10/25/16 04:32 11:48 17:22 WBC RBC Hgb Hct MCV MCH MCHC RDW Plt Count Lymph % (Auto) [place] % (Auto) Lymph # [place] # Baso # Seg Neutrophils % Seg Neuts % (Manual) Lymphocytes % (Manual) Monocytes % (Manual) Eosinophils % (Manual) Basophils % (Manual) Nucleated RBC % Seg Neutrophils # Seg Neutrophils # Man Lymphocytes # (Manual) Monocytes # (Manual) Eosinophils # (Manual) Basophils # (Manual) PT INR Fibrinogen dRVVT Confirm Interp Factor V Activity POC ABG pH POC ABG pCO2 POC ABG pO2 ABG pO2 ABG HCO3 ABG Base Excess ABG Hemoglobin Oxyhemoglobin Sodium Potassium Chloride Carbon Dioxide BUN Creatinine Glucose POC Glucose 124 H 171 H 120 H Lactic Acid Calcium Ionized Calcium Phosphorus Magnesium Direct Bilirubin AST ALT Alkaline Phosphatase Lactate Dehydrogenase Troponin T C-Reactive Protein Total Protein Albumin Prealbumin Triglycerides Cholesterol LDL Cholesterol Direct HDL Cholesterol PTH Intact Urine pH Urine WBC (Auto) Urine Creatinine Urine Total Protein Fluid Total Protein Vancomycin Trough Rheumatoid Factor Complement C4 Miscellaneous Test Crossmatch 10/26/16 10/26/16 10/26/16 04:54 07:06 07:06 WBC 16.9 H RBC 3.06 L Hgb 9.1 L Hct 26.9 L MCV MCH MCHC RDW 16.9 H Plt Count Lymph % (Auto) [place] % (Auto) Lymph # M[place]ick # Baso # Seg Neutrophils % Seg Neuts % (Manual) 71.0 H Lymphocytes % (Manual) 5.0 L Monocytes % (Manual) 12.0 H Eosinophils % (Manual) Basophils % (Manual) Nucleated RBC % Seg Neutrophils # Seg Neutrophils # Man 12.0 H Lymphocytes # (Manual) 0.8 L Monocytes # (Manual) 2.0 H Eosinophils # (Manual) Basophils # (Manual) PT INR Fibrinogen dRVVT Confirm Interp Factor V Activity POC ABG pH POC ABG pCO2 POC ABG pO2 ABG pO2 ABG HCO3 ABG Base Excess ABG Hemoglobin Oxyhemoglobin Sodium 135 L Potassium Chloride 97.1 L Carbon Dioxide BUN 73 H Creatinine 2.2 H Glucose 117 H POC Glucose 123 H Lactic Acid Calcium Ionized Calcium Phosphorus 1.70 L Magnesium Direct Bilirubin AST ALT Alkaline Phosphatase Lactate Dehydrogenase Troponin T C-Reactive Protein Total Protein Albumin Prealbumin Triglycerides Cholesterol LDL Cholesterol Direct HDL Cholesterol PTH Intact Urine pH Urine WBC (Auto) Urine Creatinine Urine Total Protein Fluid Total Protein Vancomycin Trough Rheumatoid Factor Complement C4 Miscellaneous Test Crossmatch 10/26/16 10/26/16 10/26/16 12:12 17:29 23:42 WBC RBC Hgb Hct MCV MCH MCHC RDW Plt Count Lymph % (Auto) [place] % (Auto) Lymph # [place] # Baso # Seg Neutrophils % Seg Neuts % (Manual) Lymphocytes % (Manual) Monocytes % (Manual) Eosinophils % (Manual) Basophils % (Manual) Nucleated RBC % Seg Neutrophils # Seg Neutrophils # Man Lymphocytes # (Manual) Monocytes # (Manual) Eosinophils # (Manual) Basophils # (Manual) PT INR Fibrinogen dRVVT Confirm Interp Factor V Activity POC ABG pH POC ABG pCO2 POC ABG pO2 ABG pO2 ABG HCO3 ABG Base Excess ABG Hemoglobin Oxyhemoglobin Sodium Potassium Chloride Carbon Dioxide BUN Creatinine Glucose POC Glucose 126 H 161 H 118 H Lactic Acid Calcium Ionized Calcium Phosphorus Magnesium Direct Bilirubin AST ALT Alkaline Phosphatase Lactate Dehydrogenase Troponin T C-Reactive Protein Total Protein Albumin Prealbumin Triglycerides Cholesterol LDL Cholesterol Direct HDL Cholesterol PTH Intact Urine pH Urine WBC (Auto) Urine Creatinine Urine Total Protein Fluid Total Protein Vancomycin Trough Rheumatoid Factor Complement C4 Miscellaneous Test Crossmatch 10/27/16 10/27/16 10/27/16 05:03 06:30 06:30 WBC 13.9 H RBC 3.09 L Hgb 9.2 L Hct 27.5 L MCV MCH MCHC RDW 17.0 H Plt Count Lymph % (Auto) [place] % (Auto) Lymph # [place] # Baso # Seg Neutrophils % Seg Neuts % (Manual) 78.0 H Lymphocytes % (Manual) Monocytes % (Manual) Eosinophils % (Manual) Basophils % (Manual) Nucleated RBC % 2.0 H Seg Neutrophils # Seg Neutrophils # Man 10.8 H Lymphocytes # (Manual) Monocytes # (Manual) 1.0 H Eosinophils # (Manual) Basophils # (Manual) PT INR Fibrinogen dRVVT Confirm Interp Factor V Activity POC ABG pH POC ABG pCO2 POC ABG pO2 ABG pO2 ABG HCO3 ABG Base Excess ABG Hemoglobin Oxyhemoglobin Sodium Potassium Chloride Carbon Dioxide BUN 40 H Creatinine 1.5 H Glucose 135 H POC Glucose 107 H Lactic Acid Calcium 8.3 L Ionized Calcium Phosphorus 1.30 L D Magnesium Direct Bilirubin AST ALT Alkaline Phosphatase Lactate Dehydrogenase Troponin T C-Reactive Protein Total Protein Albumin Prealbumin Triglycerides Cholesterol LDL Cholesterol Direct HDL Cholesterol PTH Intact Urine pH Urine WBC (Auto) Urine Creatinine Urine Total Protein Fluid Total Protein Vancomycin Trough Rheumatoid Factor Complement C4 Miscellaneous Test Crossmatch 10/27/16 10/27/16 10/27/16 13:27 18:07 23:40 WBC RBC Hgb Hct MCV MCH MCHC RDW Plt Count Lymph % (Auto) [place] % (Auto) Lymph # [place] # Baso # Seg Neutrophils % Seg Neuts % (Manual) Lymphocytes % (Manual) Monocytes % (Manual) Eosinophils % (Manual) Basophils % (Manual) Nucleated RBC % Seg Neutrophils # Seg Neutrophils # Man Lymphocytes # (Manual) Monocytes # (Manual) Eosinophils # (Manual) Basophils # (Manual) PT INR Fibrinogen dRVVT Confirm Interp Factor V Activity POC ABG pH POC ABG pCO2 POC ABG pO2 ABG pO2 ABG HCO3 ABG Base Excess ABG Hemoglobin Oxyhemoglobin Sodium Potassium Chloride Carbon Dioxide BUN Creatinine Glucose POC Glucose 117 H 121 H 118 H Lactic Acid Calcium Ionized Calcium Phosphorus Magnesium Direct Bilirubin AST ALT Alkaline Phosphatase Lactate Dehydrogenase Troponin T C-Reactive Protein Total Protein Albumin Prealbumin Triglycerides Cholesterol LDL Cholesterol Direct HDL Cholesterol PTH Intact Urine pH Urine WBC (Auto) Urine Creatinine Urine Total Protein Fluid Total Protein Vancomycin Trough Rheumatoid Factor Complement C4 Miscellaneous Test Crossmatch 10/28/16 10/28/16 10/28/16 05:48 06:45 06:45 WBC 14.7 H RBC 3.05 L Hgb 9.0 L Hct 26.9 L MCV MCH MCHC RDW 16.8 H Plt Count Lymph % (Auto) 8.2 L [place] % (Auto) 8.4 H Lymph # [place]ick # 1.2 H Baso # Seg Neutrophils % 81.9 H Seg Neuts % (Manual) Lymphocytes % (Manual) Monocytes % (Manual) Eosinophils % (Manual) Basophils % (Manual) Nucleated RBC % Seg Neutrophils # 12.1 H Seg Neutrophils # Man Lymphocytes # (Manual) Monocytes # (Manual) Eosinophils # (Manual) Basophils # (Manual) PT INR Fibrinogen dRVVT Confirm Interp Factor V Activity POC ABG pH POC ABG pCO2 POC ABG pO2 ABG pO2 ABG HCO3 ABG Base Excess ABG Hemoglobin Oxyhemoglobin Sodium Potassium Chloride Carbon Dioxide BUN 60 H Creatinine 1.9 H Glucose 120 H POC Glucose 114 H Lactic Acid Calcium Ionized Calcium Phosphorus Magnesium Direct Bilirubin AST ALT Alkaline Phosphatase Lactate Dehydrogenase Troponin T C-Reactive Protein Total Protein Albumin Prealbumin Triglycerides Cholesterol LDL Cholesterol Direct HDL Cholesterol PTH Intact Urine pH Urine WBC (Auto) Urine Creatinine Urine Total Protein Fluid Total Protein Vancomycin Trough Rheumatoid Factor Complement C4 Miscellaneous Test Crossmatch 10/28/16 10/28/16 10/29/16 17:08 23:50 05:10 WBC RBC Hgb Hct MCV MCH MCHC RDW Plt Count Lymph % (Auto) [place] % (Auto) Lymph # [place] # Baso # Seg Neutrophils % Seg Neuts % (Manual) Lymphocytes % (Manual) Monocytes % (Manual) Eosinophils % (Manual) Basophils % (Manual) Nucleated RBC % Seg Neutrophils # Seg Neutrophils # Man Lymphocytes # (Manual) Monocytes # (Manual) Eosinophils # (Manual) Basophils # (Manual) PT INR Fibrinogen dRVVT Confirm Interp Factor V Activity POC ABG pH POC ABG pCO2 POC ABG pO2 ABG pO2 ABG HCO3 ABG Base Excess ABG Hemoglobin Oxyhemoglobin Sodium Potassium Chloride Carbon Dioxide BUN Creatinine Glucose POC Glucose 109 H 110 H 124 H Lactic Acid Calcium Ionized Calcium Phosphorus Magnesium Direct Bilirubin AST ALT Alkaline Phosphatase Lactate Dehydrogenase Troponin T C-Reactive Protein Total Protein Albumin Prealbumin Triglycerides Cholesterol LDL Cholesterol Direct HDL Cholesterol PTH Intact Urine pH Urine WBC (Auto) Urine Creatinine Urine Total Protein Fluid Total Protein Vancomycin Trough Rheumatoid Factor Complement C4 Miscellaneous Test Crossmatch 10/29/16 10/29/16 10/29/16 07:45 07:45 12:19 WBC 14.7 H RBC 3.15 L Hgb 9.3 L Hct 28.9 L MCV MCH MCHC RDW 17.0 H Plt Count Lymph % (Auto) 11.9 L [place] % (Auto) 8.6 H Lymph # M[place]ick # 1.3 H Baso # Seg Neutrophils % 78.1 H Seg Neuts % (Manual) Lymphocytes % (Manual) Monocytes % (Manual) Eosinophils % (Manual) Basophils % (Manual) Nucleated RBC % Seg Neutrophils # 11.4 H Seg Neutrophils # Man Lymphocytes # (Manual) Monocytes # (Manual) Eosinophils # (Manual) Basophils # (Manual) PT INR Fibrinogen dRVVT Confirm Interp Factor V Activity POC ABG pH POC ABG pCO2 POC ABG pO2 ABG pO2 ABG HCO3 ABG Base Excess ABG Hemoglobin Oxyhemoglobin Sodium Potassium 5.1 H Chloride Carbon Dioxide 19 L BUN 78 H Creatinine 2.2 H Glucose 116 H POC Glucose 118 H Lactic Acid Calcium Ionized Calcium Phosphorus Magnesium Direct Bilirubin AST ALT Alkaline Phosphatase Lactate Dehydrogenase Troponin T C-Reactive Protein Total Protein Albumin Prealbumin Triglycerides Cholesterol LDL Cholesterol Direct HDL Cholesterol PTH Intact Urine pH Urine WBC (Auto) Urine Creatinine Urine Total Protein Fluid Total Protein Vancomycin Trough Rheumatoid Factor Complement C4 Miscellaneous Test Crossmatch 10/29/16 10/30/16 10/30/16 17:49 01:52 03:28 WBC RBC Hgb Hct MCV MCH MCHC RDW Plt Count Lymph % (Auto) [place] % (Auto) Lymph # [place] # Baso # Seg Neutrophils % Seg Neuts % (Manual) Lymphocytes % (Manual) Monocytes % (Manual) Eosinophils % (Manual) Basophils % (Manual) Nucleated RBC % Seg Neutrophils # Seg Neutrophils # Man Lymphocytes # (Manual) Monocytes # (Manual) Eosinophils # (Manual) Basophils # (Manual) PT INR Fibrinogen dRVVT Confirm Interp Factor V Activity POC ABG pH POC ABG pCO2 POC ABG pO2 ABG pO2 ABG HCO3 ABG Base Excess ABG Hemoglobin Oxyhemoglobin Sodium Potassium 5.4 H Chloride 97.5 L Carbon Dioxide 19 L BUN 90 H Creatinine 2.5 H Glucose POC Glucose 120 H 129 H Lactic Acid Calcium Ionized Calcium Phosphorus 5.20 H Magnesium Direct Bilirubin AST ALT Alkaline Phosphatase Lactate Dehydrogenase Troponin T C-Reactive Protein Total Protein Albumin Prealbumin Triglycerides Cholesterol LDL Cholesterol Direct HDL Cholesterol PTH Intact Urine pH Urine WBC (Auto) Urine Creatinine Urine Total Protein Fluid Total Protein Vancomycin Trough Rheumatoid Factor Complement C4 Miscellaneous Test Crossmatch 10/30/16 10/30/16 10/30/16 03:28 08:19 08:19 WBC 11.6 H 15.9 H RBC 2.75 L 2.82 L Hgb 7.9 L 8.3 L Hct 24.2 L 25.2 L MCV MCH MCHC RDW 16.7 H 17.2 H Plt Count Lymph % (Auto) [place] % (Auto) 9.8 H Lymph # M[place]ormick # 1.1 H Baso # Seg Neutrophils % 74.2 H Seg Neuts % (Manual) Lymphocytes % (Manual) Monocytes % (Manual) Eosinophils % (Manual) Basophils % (Manual) Nucleated RBC % Seg Neutrophils # 8.6 H Seg Neutrophils # Man Lymphocytes # (Manual) Monocytes # (Manual) Eosinophils # (Manual) Basophils # (Manual) PT INR Fibrinogen dRVVT Confirm Interp Factor V Activity POC ABG pH POC ABG pCO2 POC ABG pO2 ABG pO2 ABG HCO3 ABG Base Excess ABG Hemoglobin Oxyhemoglobin Sodium Potassium 5.3 H Chloride 97.4 L Carbon Dioxide 19 L BUN 93 H Creatinine 2.6 H Glucose POC Glucose Lactic Acid Calcium Ionized Calcium Phosphorus Magnesium Direct Bilirubin AST ALT Alkaline Phosphatase Lactate Dehydrogenase Troponin T C-Reactive Protein Total Protein Albumin Prealbumin Triglycerides Cholesterol LDL Cholesterol Direct HDL Cholesterol PTH Intact Urine pH Urine WBC (Auto) Urine Creatinine Urine Total Protein Fluid Total Protein Vancomycin Trough Rheumatoid Factor Complement C4 Miscellaneous Test Crossmatch 10/30/16 10/30/16 10/31/16 17:11 23:56 00:40 WBC RBC Hgb Hct MCV MCH MCHC RDW Plt Count Lymph % (Auto) [place] % (Auto) Lymph # [place] # Baso # Seg Neutrophils % Seg Neuts % (Manual) Lymphocytes % (Manual) Monocytes % (Manual) Eosinophils % (Manual) Basophils % (Manual) Nucleated RBC % Seg Neutrophils # Seg Neutrophils # Man Lymphocytes # (Manual) Monocytes # (Manual) Eosinophils # (Manual) Basophils # (Manual) PT INR Fibrinogen dRVVT Confirm Interp Factor V Activity POC ABG pH POC ABG pCO2 POC ABG pO2 ABG pO2 ABG HCO3 ABG Base Excess ABG Hemoglobin Oxyhemoglobin Sodium Potassium Chloride Carbon Dioxide BUN Creatinine Glucose POC Glucose 106 H 117 H 120 H Lactic Acid Calcium Ionized Calcium Phosphorus Magnesium Direct Bilirubin AST ALT Alkaline Phosphatase Lactate Dehydrogenase Troponin T C-Reactive Protein Total Protein Albumin Prealbumin Triglycerides Cholesterol LDL Cholesterol Direct HDL Cholesterol PTH Intact Urine pH Urine WBC (Auto) Urine Creatinine Urine Total Protein Fluid Total Protein Vancomycin Trough Rheumatoid Factor Complement C4 Miscellaneous Test Crossmatch 10/31/16 10/31/16 10/31/16 05:43 07:15 07:15 WBC 12.1 H RBC 2.63 L Hgb 7.7 L Hct 23.3 L MCV MCH MCHC RDW 16.7 H Plt Count Lymph % (Auto) 11.7 L [place] % (Auto) 7.7 H Lymph # M[place]ick # 0.9 H Baso # Seg Neutrophils % 78.0 H Seg Neuts % (Manual) Lymphocytes % (Manual) Monocytes % (Manual) Eosinophils % (Manual) Basophils % (Manual) Nucleated RBC % Seg Neutrophils # 9.4 H Seg Neutrophils # Man Lymphocytes # (Manual) Monocytes # (Manual) Eosinophils # (Manual) Basophils # (Manual) PT INR Fibrinogen dRVVT Confirm Interp Factor V Activity POC ABG pH POC ABG pCO2 POC ABG pO2 ABG pO2 ABG HCO3 ABG Base Excess ABG Hemoglobin Oxyhemoglobin Sodium Potassium Chloride 96.4 L Carbon Dioxide 21 L BUN 99 H Creatinine 2.6 H Glucose 144 H POC Glucose 125 H Lactic Acid Calcium Ionized Calcium Phosphorus 4.80 H Magnesium Direct Bilirubin AST ALT Alkaline Phosphatase Lactate Dehydrogenase Troponin T C-Reactive Protein Total Protein Albumin Prealbumin Triglycerides Cholesterol LDL Cholesterol Direct HDL Cholesterol PTH Intact Urine pH Urine WBC (Auto) Urine Creatinine Urine Total Protein Fluid Total Protein Vancomycin Trough Rheumatoid Factor Complement C4 Miscellaneous Test Crossmatch 10/31/16 10/31/16 11/01/16 11:46 18:34 00:20 WBC RBC Hgb Hct MCV MCH MCHC RDW Plt Count Lymph % (Auto) [place] % (Auto) Lymph # [place] # Baso # Seg Neutrophils % Seg Neuts % (Manual) Lymphocytes % (Manual) Monocytes % (Manual) Eosinophils % (Manual) Basophils % (Manual) Nucleated RBC % Seg Neutrophils # Seg Neutrophils # Man Lymphocytes # (Manual) Monocytes # (Manual) Eosinophils # (Manual) Basophils # (Manual) PT INR Fibrinogen dRVVT Confirm Interp Factor V Activity POC ABG pH POC ABG pCO2 POC ABG pO2 ABG pO2 ABG HCO3 ABG Base Excess ABG Hemoglobin Oxyhemoglobin Sodium Potassium Chloride Carbon Dioxide BUN Creatinine Glucose POC Glucose 159 H 140 H 132 H Lactic Acid Calcium Ionized Calcium Phosphorus Magnesium Direct Bilirubin AST ALT Alkaline Phosphatase Lactate Dehydrogenase Troponin T C-Reactive Protein Total Protein Albumin Prealbumin Triglycerides Cholesterol LDL Cholesterol Direct HDL Cholesterol PTH Intact Urine pH Urine WBC (Auto) Urine Creatinine Urine Total Protein Fluid Total Protein Vancomycin Trough Rheumatoid Factor Complement C4 Miscellaneous Test Crossmatch 11/01/16 11/01/16 11/01/16 04:55 04:55 06:11 WBC 11.2 H RBC 2.68 L Hgb 7.5 L Hct 23.7 L MCV MCH MCHC RDW 16.1 H Plt Count Lymph % (Auto) [place] % (Auto) 9.8 H Lymph # M[place]ick # 1.1 H Baso # Seg Neutrophils % 70.8 H Seg Neuts % (Manual) Lymphocytes % (Manual) Monocytes % (Manual) Eosinophils % (Manual) Basophils % (Manual) Nucleated RBC % Seg Neutrophils # 7.9 H Seg Neutrophils # Man Lymphocytes # (Manual) Monocytes # (Manual) Eosinophils # (Manual) Basophils # (Manual) PT INR Fibrinogen dRVVT Confirm Interp Factor V Activity POC ABG pH POC ABG pCO2 POC ABG pO2 ABG pO2 ABG HCO3 ABG Base Excess ABG Hemoglobin Oxyhemoglobin Sodium Potassium 3.3 L D Chloride Carbon Dioxide BUN 61 H Creatinine 1.9 H Glucose 114 H POC Glucose 115 H Lactic Acid Calcium Ionized Calcium Phosphorus 1.80 L D Magnesium Direct Bilirubin AST ALT Alkaline Phosphatase Lactate Dehydrogenase Troponin T C-Reactive Protein Total Protein Albumin Prealbumin Triglycerides Cholesterol LDL Cholesterol Direct HDL Cholesterol PTH Intact Urine pH Urine WBC (Auto) Urine Creatinine Urine Total Protein Fluid Total Protein Vancomycin Trough Rheumatoid Factor Complement C4 Miscellaneous Test Crossmatch 11/01/16 11/01/16 11/01/16 12:29 18:23 23:58 WBC RBC Hgb Hct MCV MCH MCHC RDW Plt Count Lymph % (Auto) [place] % (Auto) Lymph # [place] # Baso # Seg Neutrophils % Seg Neuts % (Manual) Lymphocytes % (Manual) Monocytes % (Manual) Eosinophils % (Manual) Basophils % (Manual) Nucleated RBC % Seg Neutrophils # Seg Neutrophils # Man Lymphocytes # (Manual) Monocytes # (Manual) Eosinophils # (Manual) Basophils # (Manual) PT INR Fibrinogen dRVVT Confirm Interp Factor V Activity POC ABG pH POC ABG pCO2 POC ABG pO2 ABG pO2 ABG HCO3 ABG Base Excess ABG Hemoglobin Oxyhemoglobin Sodium Potassium Chloride Carbon Dioxide BUN Creatinine Glucose POC Glucose 142 H 143 H 128 H Lactic Acid Calcium Ionized Calcium Phosphorus Magnesium Direct Bilirubin AST ALT Alkaline Phosphatase Lactate Dehydrogenase Troponin T C-Reactive Protein Total Protein Albumin Prealbumin Triglycerides Cholesterol LDL Cholesterol Direct HDL Cholesterol PTH Intact Urine pH Urine WBC (Auto) Urine Creatinine Urine Total Protein Fluid Total Protein Vancomycin Trough Rheumatoid Factor Complement C4 Miscellaneous Test Crossmatch 11/02/16 11/02/16 11/02/16 04:16 05:29 11:58 WBC RBC Hgb Hct MCV MCH MCHC RDW Plt Count Lymph % (Auto) [place] % (Auto) Lymph # [place] # Baso # Seg Neutrophils % Seg Neuts % (Manual) Lymphocytes % (Manual) Monocytes % (Manual) Eosinophils % (Manual) Basophils % (Manual) Nucleated RBC % Seg Neutrophils # Seg Neutrophils # Man Lymphocytes # (Manual) Monocytes # (Manual) Eosinophils # (Manual) Basophils # (Manual) PT INR Fibrinogen dRVVT Confirm Interp Factor V Activity POC ABG pH POC ABG pCO2 POC ABG pO2 ABG pO2 ABG HCO3 ABG Base Excess ABG Hemoglobin Oxyhemoglobin Sodium Potassium 3.1 L Chloride Carbon Dioxide BUN 73 H Creatinine 2.3 H Glucose 112 H POC Glucose 135 H 149 H Lactic Acid Calcium Ionized Calcium Phosphorus Magnesium Direct Bilirubin AST ALT Alkaline Phosphatase Lactate Dehydrogenase Troponin T C-Reactive Protein Total Protein Albumin Prealbumin Triglycerides Cholesterol LDL Cholesterol Direct HDL Cholesterol PTH Intact Urine pH Urine WBC (Auto) Urine Creatinine Urine Total Protein Fluid Total Protein Vancomycin Trough Rheumatoid Factor Complement C4 Miscellaneous Test Crossmatch 11/02/16 11/02/16 11/03/16 17:42 22:54 06:00 WBC RBC Hgb Hct MCV MCH MCHC RDW Plt Count Lymph % (Auto) [place] % (Auto) Lymph # M[place]orm[place] # Baso # Seg Neutrophils % Seg Neuts % (Manual) Lymphocytes % (Manual) Monocytes % (Manual) Eosinophils % (Manual) Basophils % (Manual) Nucleated RBC % Seg Neutrophils # Seg Neutrophils # Man Lymphocytes # (Manual) Monocytes # (Manual) Eosinophils # (Manual) Basophils # (Manual) PT INR Fibrinogen dRVVT Confirm Interp Factor V Activity POC ABG pH POC ABG pCO2 POC ABG pO2 ABG pO2 ABG HCO3 ABG Base Excess ABG Hemoglobin Oxyhemoglobin Sodium Potassium Chloride 96.7 L Carbon Dioxide BUN 41 H Creatinine 1.5 H Glucose 145 H POC Glucose 182 H 115 H Lactic Acid Calcium Ionized Calcium Phosphorus 1.60 L D Magnesium 1.50 L Direct Bilirubin AST ALT Alkaline Phosphatase Lactate Dehydrogenase Troponin T C-Reactive Protein Total Protein Albumin Prealbumin Triglycerides Cholesterol LDL Cholesterol Direct HDL Cholesterol PTH Intact Urine pH Urine WBC (Auto) Urine Creatinine Urine Total Protein Fluid Total Protein Vancomycin Trough Rheumatoid Factor Complement C4 Miscellaneous Test Crossmatch 11/03/16 11/03/16 11/03/16 11:53 17:45 23:37 WBC RBC Hgb Hct MCV MCH MCHC RDW Plt Count Lymph % (Auto) [place] % (Auto) Lymph # M[place] # Baso # Seg Neutrophils % Seg Neuts % (Manual) Lymphocytes % (Manual) Monocytes % (Manual) Eosinophils % (Manual) Basophils % (Manual) Nucleated RBC % Seg Neutrophils # Seg Neutrophils # Man Lymphocytes # (Manual) Monocytes # (Manual) Eosinophils # (Manual) Basophils # (Manual) PT INR Fibrinogen dRVVT Confirm Interp Factor V Activity POC ABG pH POC ABG pCO2 POC ABG pO2 ABG pO2 ABG HCO3 ABG Base Excess ABG Hemoglobin Oxyhemoglobin Sodium Potassium Chloride Carbon Dioxide BUN Creatinine Glucose POC Glucose 131 H 134 H 113 H Lactic Acid Calcium Ionized Calcium Phosphorus Magnesium Direct Bilirubin AST ALT Alkaline Phosphatase Lactate Dehydrogenase Troponin T C-Reactive Protein Total Protein Albumin Prealbumin Triglycerides Cholesterol LDL Cholesterol Direct HDL Cholesterol PTH Intact Urine pH Urine WBC (Auto) Urine Creatinine Urine Total Protein Fluid Total Protein Vancomycin Trough Rheumatoid Factor Complement C4 Miscellaneous Test Crossmatch 11/04/16 11/04/16 11/04/16 05:41 06:00 12:10 WBC RBC Hgb Hct MCV MCH MCHC RDW Plt Count Lymph % (Auto) [place] % (Auto) Lymph # [place] # Baso # Seg Neutrophils % Seg Neuts % (Manual) Lymphocytes % (Manual) Monocytes % (Manual) Eosinophils % (Manual) Basophils % (Manual) Nucleated RBC % Seg Neutrophils # Seg Neutrophils # Man Lymphocytes # (Manual) Monocytes # (Manual) Eosinophils # (Manual) Basophils # (Manual) PT INR Fibrinogen dRVVT Confirm Interp Factor V Activity POC ABG pH POC ABG pCO2 POC ABG pO2 ABG pO2 ABG HCO3 ABG Base Excess ABG Hemoglobin Oxyhemoglobin Sodium Potassium Chloride 96.7 L Carbon Dioxide BUN 52 H Creatinine 1.9 H Glucose 126 H POC Glucose 137 H 191 H Lactic Acid Calcium Ionized Calcium Phosphorus Magnesium Direct Bilirubin AST ALT Alkaline Phosphatase Lactate Dehydrogenase Troponin T C-Reactive Protein Total Protein Albumin Prealbumin Triglycerides Cholesterol LDL Cholesterol Direct HDL Cholesterol PTH Intact Urine pH Urine WBC (Auto) Urine Creatinine Urine Total Protein Fluid Total Protein Vancomycin Trough Rheumatoid Factor Complement C4 Miscellaneous Test Crossmatch 11/04/16 11/05/16 11/05/16 22:57 03:10 05:10 WBC RBC Hgb Hct MCV MCH MCHC RDW Plt Count Lymph % (Auto) [place] % (Auto) Lymph # M[place]orm[place] # Baso # Seg Neutrophils % Seg Neuts % (Manual) Lymphocytes % (Manual) Monocytes % (Manual) Eosinophils % (Manual) Basophils % (Manual) Nucleated RBC % Seg Neutrophils # Seg Neutrophils # Man Lymphocytes # (Manual) Monocytes # (Manual) Eosinophils # (Manual) Basophils # (Manual) PT INR Fibrinogen dRVVT Confirm Interp Factor V Activity POC ABG pH POC ABG pCO2 POC ABG pO2 ABG pO2 ABG HCO3 ABG Base Excess ABG Hemoglobin Oxyhemoglobin Sodium 136 L Potassium Chloride 97.2 L Carbon Dioxide BUN 32 H Creatinine 1.3 H Glucose 123 H POC Glucose 125 H 108 H Lactic Acid Calcium 7.8 L Ionized Calcium Phosphorus Magnesium Direct Bilirubin AST ALT Alkaline Phosphatase Lactate Dehydrogenase Troponin T C-Reactive Protein Total Protein Albumin Prealbumin Triglycerides Cholesterol LDL Cholesterol Direct HDL Cholesterol PTH Intact Urine pH Urine WBC (Auto) Urine Creatinine Urine Total Protein Fluid Total Protein Vancomycin Trough Rheumatoid Factor Complement C4 Miscellaneous Test Crossmatch 11/05/16 11/05/16 11/05/16 12:23 13:09 13:25 WBC RBC Hgb Hct MCV MCH MCHC RDW Plt Count Lymph % (Auto) [place] % (Auto) Lymph # M[place]orm[place] # Baso # Seg Neutrophils % Seg Neuts % (Manual) Lymphocytes % (Manual) Monocytes % (Manual) Eosinophils % (Manual) Basophils % (Manual) Nucleated RBC % Seg Neutrophils # Seg Neutrophils # Man Lymphocytes # (Manual) Monocytes # (Manual) Eosinophils # (Manual) Basophils # (Manual) PT INR Fibrinogen dRVVT Confirm Interp Factor V Activity POC ABG pH POC ABG pCO2 POC ABG pO2 ABG pO2 ABG HCO3 ABG Base Excess ABG Hemoglobin Oxyhemoglobin Sodium Potassium Chloride Carbon Dioxide BUN Creatinine Glucose POC Glucose 124 H Lactic Acid Calcium Ionized Calcium Phosphorus Magnesium Direct Bilirubin AST ALT Alkaline Phosphatase Lactate Dehydrogenase Troponin T C-Reactive Protein 11.40 H Total Protein Albumin Prealbumin Triglycerides Cholesterol LDL Cholesterol Direct HDL Cholesterol PTH Intact Urine pH 9.0 H Urine WBC (Auto) Urine Creatinine Urine Total Protein Fluid Total Protein Vancomycin Trough Rheumatoid Factor Complement C4 Miscellaneous Test Crossmatch 11/05/16 11/05/16 11/05/16 13:25 17:54 23:42 WBC RBC Hgb Hct MCV MCH MCHC RDW Plt Count Lymph % (Auto) [place] % (Auto) Lymph # M[place]ormick # Baso # Seg Neutrophils % Seg Neuts % (Manual) Lymphocytes % (Manual) Monocytes % (Manual) Eosinophils % (Manual) Basophils % (Manual) Nucleated RBC % Seg Neutrophils # Seg Neutrophils # Man Lymphocytes # (Manual) Monocytes # (Manual) Eosinophils # (Manual) Basophils # (Manual) PT INR Fibrinogen dRVVT Confirm Interp Factor V Activity POC ABG pH POC ABG pCO2 POC ABG pO2 ABG pO2 ABG HCO3 ABG Base Excess ABG Hemoglobin Oxyhemoglobin Sodium Potassium Chloride Carbon Dioxide BUN Creatinine Glucose POC Glucose 114 H 134 H Lactic Acid Calcium Ionized Calcium Phosphorus Magnesium Direct Bilirubin AST ALT Alkaline Phosphatase Lactate Dehydrogenase Troponin T C-Reactive Protein Total Protein Albumin Prealbumin Triglycerides Cholesterol LDL Cholesterol Direct HDL Cholesterol PTH Intact Urine pH Urine WBC (Auto) Urine Creatinine Urine Total Protein Fluid Total Protein Vancomycin Trough Rheumatoid Factor Complement C4 Miscellaneous Test Flexitest 1 H Crossmatch 11/06/16 11/06/16 11/06/16 04:56 06:25 06:25 WBC RBC 2.50 L Hgb 7.3 L Hct 22.5 L MCV MCH MCHC RDW 16.9 H Plt Count Lymph % (Auto) M[place] % (Auto) 10.5 H Lymph # M[place]ick # 1.1 H Baso # Seg Neutrophils % Seg Neuts % (Manual) Lymphocytes % (Manual) Monocytes % (Manual) Eosinophils % (Manual) Basophils % (Manual) Nucleated RBC % Seg Neutrophils # Seg Neutrophils # Man Lymphocytes # (Manual) Monocytes # (Manual) Eosinophils # (Manual) Basophils # (Manual) PT INR Fibrinogen dRVVT Confirm Interp Factor V Activity POC ABG pH POC ABG pCO2 POC ABG pO2 ABG pO2 ABG HCO3 ABG Base Excess ABG Hemoglobin Oxyhemoglobin Sodium Potassium 5.1 H Chloride 95.9 L Carbon Dioxide BUN 52 H Creatinine 1.8 H Glucose 117 H POC Glucose 120 H Lactic Acid Calcium Ionized Calcium Phosphorus Magnesium Direct Bilirubin AST 103 H ALT 77 H Alkaline Phosphatase 285 H Lactate Dehydrogenase Troponin T C-Reactive Protein Total Protein 6.2 L Albumin 1.8 L Prealbumin 0.180 L Triglycerides Cholesterol LDL Cholesterol Direct HDL Cholesterol PTH Intact Urine pH Urine WBC (Auto) Urine Creatinine Urine Total Protein Fluid Total Protein Vancomycin Trough Rheumatoid Factor Complement C4 Miscellaneous Test Crossmatch 11/06/16 11/06/16 11/06/16 11:56 17:14 23:52 WBC RBC Hgb Hct MCV MCH MCHC RDW Plt Count Lymph % (Auto) [place] % (Auto) Lymph # [place] # Baso # Seg Neutrophils % Seg Neuts % (Manual) Lymphocytes % (Manual) Monocytes % (Manual) Eosinophils % (Manual) Basophils % (Manual) Nucleated RBC % Seg Neutrophils # Seg Neutrophils # Man Lymphocytes # (Manual) Monocytes # (Manual) Eosinophils # (Manual) Basophils # (Manual) PT INR Fibrinogen dRVVT Confirm Interp Factor V Activity POC ABG pH POC ABG pCO2 POC ABG pO2 ABG pO2 ABG HCO3 ABG Base Excess ABG Hemoglobin Oxyhemoglobin Sodium Potassium Chloride Carbon Dioxide BUN Creatinine Glucose POC Glucose 141 H 125 H 130 H Lactic Acid Calcium Ionized Calcium Phosphorus Magnesium Direct Bilirubin AST ALT Alkaline Phosphatase Lactate Dehydrogenase Troponin T C-Reactive Protein Total Protein Albumin Prealbumin Triglycerides Cholesterol LDL Cholesterol Direct HDL Cholesterol PTH Intact Urine pH Urine WBC (Auto) Urine Creatinine Urine Total Protein Fluid Total Protein Vancomycin Trough Rheumatoid Factor Complement C4 Miscellaneous Test Crossmatch 11/07/16 11/07/16 11/07/16 06:30 06:30 09:37 WBC RBC 2.18 L Hgb 6.3 L Hct 19.7 L* MCV MCH MCHC RDW 16.8 H Plt Count Lymph % (Auto) [place] % (Auto) 10.0 H Lymph # [place] # 1.0 H Baso # Seg Neutrophils % Seg Neuts % (Manual) Lymphocytes % (Manual) Monocytes % (Manual) Eosinophils % (Manual) Basophils % (Manual) Nucleated RBC % Seg Neutrophils # Seg Neutrophils # Man Lymphocytes # (Manual) Monocytes # (Manual) Eosinophils # (Manual) Basophils # (Manual) PT INR Fibrinogen dRVVT Confirm Interp Factor V Activity POC ABG pH POC ABG pCO2 POC ABG pO2 ABG pO2 ABG HCO3 ABG Base Excess ABG Hemoglobin Oxyhemoglobin Sodium 135 L Potassium Chloride 95.6 L Carbon Dioxide BUN 70 H Creatinine 2.0 H Glucose 126 H POC Glucose Lactic Acid Calcium Ionized Calcium Phosphorus Magnesium Direct Bilirubin AST ALT Alkaline Phosphatase Lactate Dehydrogenase Troponin T C-Reactive Protein Total Protein Albumin Prealbumin Triglycerides Cholesterol LDL Cholesterol Direct HDL Cholesterol PTH Intact Urine pH Urine WBC (Auto) Urine Creatinine Urine Total Protein Fluid Total Protein Vancomycin Trough Rheumatoid Factor Complement C4 Miscellaneous Test Crossmatch See Detail 11/07/16 11/07/16 11/07/16 12:52 18:51 21:26 WBC RBC Hgb Hct MCV MCH MCHC RDW Plt Count Lymph % (Auto) [place] % (Auto) Lymph # [place] # Baso # Seg Neutrophils % Seg Neuts % (Manual) Lymphocytes % (Manual) Monocytes % (Manual) Eosinophils % (Manual) Basophils % (Manual) Nucleated RBC % Seg Neutrophils # Seg Neutrophils # Man Lymphocytes # (Manual) Monocytes # (Manual) Eosinophils # (Manual) Basophils # (Manual) PT INR Fibrinogen dRVVT Confirm Interp Factor V Activity POC ABG pH 7.523 H POC ABG pCO2 34.6 L POC ABG pO2 53 L ABG pO2 ABG HCO3 ABG Base Excess ABG Hemoglobin Oxyhemoglobin Sodium Potassium Chloride Carbon Dioxide BUN Creatinine Glucose POC Glucose 142 H 155 H Lactic Acid Calcium Ionized Calcium Phosphorus Magnesium Direct Bilirubin AST ALT Alkaline Phosphatase Lactate Dehydrogenase Troponin T C-Reactive Protein Total Protein Albumin Prealbumin Triglycerides Cholesterol LDL Cholesterol Direct HDL Cholesterol PTH Intact Urine pH Urine WBC (Auto) Urine Creatinine Urine Total Protein Fluid Total Protein Vancomycin Trough Rheumatoid Factor Complement C4 Miscellaneous Test Crossmatch 11/07/16 11/08/16 11/08/16 21:34 13:03 23:37 WBC RBC 2.63 L Hgb 7.7 L Hct 22.7 L MCV MCH MCHC RDW 17.0 H Plt Count Lymph % (Auto) [place] % (Auto) Lymph # [place] # Baso # Seg Neutrophils % Seg Neuts % (Manual) Lymphocytes % (Manual) Monocytes % (Manual) Eosinophils % (Manual) Basophils % (Manual) Nucleated RBC % Seg Neutrophils # Seg Neutrophils # Man Lymphocytes # (Manual) Monocytes # (Manual) Eosinophils # (Manual) Basophils # (Manual) PT INR Fibrinogen dRVVT Confirm Interp Factor V Activity POC ABG pH 7.478 H POC ABG pCO2 34.0 L POC ABG pO2 50 L ABG pO2 ABG HCO3 ABG Base Excess ABG Hemoglobin Oxyhemoglobin Sodium Potassium Chloride Carbon Dioxide BUN Creatinine Glucose POC Glucose 113 H Lactic Acid Calcium Ionized Calcium Phosphorus Magnesium Direct Bilirubin AST ALT Alkaline Phosphatase Lactate Dehydrogenase Troponin T C-Reactive Protein Total Protein Albumin Prealbumin Triglycerides Cholesterol LDL Cholesterol Direct HDL Cholesterol PTH Intact Urine pH Urine WBC (Auto) Urine Creatinine Urine Total Protein Fluid Total Protein Vancomycin Trough Rheumatoid Factor Complement C4 Miscellaneous Test Crossmatch 11/09/16 11/09/16 11/09/16 04:35 10:15 18:21 WBC RBC 2.68 L Hgb 7.8 L Hct 23.3 L MCV MCH MCHC RDW 17.0 H Plt Count Lymph % (Auto) [place] % (Auto) 12.1 H Lymph # [place] # 1.1 H Baso # Seg Neutrophils % Seg Neuts % (Manual) Lymphocytes % (Manual) Monocytes % (Manual) Eosinophils % (Manual) Basophils % (Manual) Nucleated RBC % Seg Neutrophils # Seg Neutrophils # Man Lymphocytes # (Manual) Monocytes # (Manual) Eosinophils # (Manual) Basophils # (Manual) PT INR Fibrinogen dRVVT Confirm Interp Factor V Activity POC ABG pH POC ABG pCO2 POC ABG pO2 ABG pO2 ABG HCO3 ABG Base Excess ABG Hemoglobin Oxyhemoglobin Sodium Potassium Chloride Carbon Dioxide BUN 51 H Creatinine 1.8 H Glucose POC Glucose 60 L Lactic Acid Calcium 8.3 L Ionized Calcium Phosphorus Magnesium Direct Bilirubin AST ALT Alkaline Phosphatase Lactate Dehydrogenase Troponin T C-Reactive Protein Total Protein Albumin Prealbumin Triglycerides Cholesterol LDL Cholesterol Direct HDL Cholesterol PTH Intact Urine pH Urine WBC (Auto) Urine Creatinine Urine Total Protein Fluid Total Protein Vancomycin Trough Rheumatoid Factor Complement C4 Miscellaneous Test Crossmatch 11/09/16 11/10/16 11/10/16 18:55 07:00 11:51 WBC RBC Hgb Hct MCV MCH MCHC RDW Plt Count Lymph % (Auto) [place] % (Auto) Lymph # [place] # Baso # Seg Neutrophils % Seg Neuts % (Manual) Lymphocytes % (Manual) Monocytes % (Manual) Eosinophils % (Manual) Basophils % (Manual) Nucleated RBC % Seg Neutrophils # Seg Neutrophils # Man Lymphocytes # (Manual) Monocytes # (Manual) Eosinophils # (Manual) Basophils # (Manual) PT INR Fibrinogen dRVVT Confirm Interp Factor V Activity POC ABG pH POC ABG pCO2 POC ABG pO2 ABG pO2 ABG HCO3 ABG Base Excess ABG Hemoglobin Oxyhemoglobin Sodium Potassium 3.0 L D Chloride 97.4 L Carbon Dioxide BUN 28 H Creatinine 1.3 H Glucose POC Glucose 68 L 120 H Lactic Acid Calcium 7.8 L Ionized Calcium Phosphorus Magnesium Direct Bilirubin AST ALT Alkaline Phosphatase Lactate Dehydrogenase Troponin T C-Reactive Protein Total Protein Albumin Prealbumin Triglycerides Cholesterol LDL Cholesterol Direct HDL Cholesterol PTH Intact Urine pH Urine WBC (Auto) Urine Creatinine Urine Total Protein Fluid Total Protein Vancomycin Trough Rheumatoid Factor Complement C4 Miscellaneous Test Crossmatch 11/10/16 11/11/16 11/11/16 14:20 06:59 06:59 WBC RBC 2.81 L Hgb 8.1 L Hct 24.4 L MCV MCH MCHC RDW 16.4 H Plt Count Lymph % (Auto) [place] % (Auto) 10.8 H Lymph # [place] # 1.0 H Baso # Seg Neutrophils % Seg Neuts % (Manual) Lymphocytes % (Manual) Monocytes % (Manual) Eosinophils % (Manual) Basophils % (Manual) Nucleated RBC % Seg Neutrophils # Seg Neutrophils # Man Lymphocytes # (Manual) Monocytes # (Manual) Eosinophils # (Manual) Basophils # (Manual) PT INR Fibrinogen dRVVT Confirm Interp Factor V Activity POC ABG pH POC ABG pCO2 POC ABG pO2 ABG pO2 ABG HCO3 ABG Base Excess ABG Hemoglobin Oxyhemoglobin Sodium Potassium Chloride Carbon Dioxide BUN Creatinine Glucose POC Glucose Lactic Acid Calcium Ionized Calcium Phosphorus Magnesium Direct Bilirubin AST ALT Alkaline Phosphatase Lactate Dehydrogenase 196 H Troponin T C-Reactive Protein Total Protein 6.1 L Albumin Prealbumin Triglycerides Cholesterol LDL Cholesterol Direct HDL Cholesterol PTH Intact Urine pH Urine WBC (Auto) Urine Creatinine Urine Total Protein Fluid Total Protein < 3.0 L Vancomycin Trough Rheumatoid Factor Complement C4 Miscellaneous Test Crossmatch 11/11/16 11/11/16 11/12/16 06:59 09:50 04:00 WBC RBC Hgb Hct MCV MCH MCHC RDW Plt Count Lymph % (Auto) [place] % (Auto) Lymph # [place] # Baso # Seg Neutrophils % Seg Neuts % (Manual) Lymphocytes % (Manual) Monocytes % (Manual) Eosinophils % (Manual) Basophils % (Manual) Nucleated RBC % Seg Neutrophils # Seg Neutrophils # Man Lymphocytes # (Manual) Monocytes # (Manual) Eosinophils # (Manual) Basophils # (Manual) PT INR 1.18 H Fibrinogen dRVVT Confirm Interp Factor V Activity POC ABG pH POC ABG pCO2 POC ABG pO2 ABG pO2 ABG HCO3 ABG Base Excess ABG Hemoglobin Oxyhemoglobin Sodium 136 L 133 L Potassium Chloride 96.1 L 94.8 L Carbon Dioxide 21 L BUN 37 H 42 H Creatinine 1.8 H 2.0 H Glucose POC Glucose Lactic Acid Calcium Ionized Calcium Phosphorus Magnesium Direct Bilirubin AST ALT Alkaline Phosphatase Lactate Dehydrogenase Troponin T C-Reactive Protein Total Protein Albumin Prealbumin Triglycerides Cholesterol LDL Cholesterol Direct HDL Cholesterol PTH Intact Urine pH Urine WBC (Auto) Urine Creatinine Urine Total Protein Fluid Total Protein Vancomycin Trough Rheumatoid Factor Complement C4 Miscellaneous Test Crossmatch 11/12/16 11/12/16 11/13/16 04:00 23:55 05:53 WBC RBC Hgb 8.9 L Hct 27.2 L MCV MCH MCHC RDW Plt Count Lymph % (Auto) [place] % (Auto) Lymph # [place] # Baso # Seg Neutrophils % Seg Neuts % (Manual) Lymphocytes % (Manual) Monocytes % (Manual) Eosinophils % (Manual) Basophils % (Manual) Nucleated RBC % Seg Neutrophils # Seg Neutrophils # Man Lymphocytes # (Manual) Monocytes # (Manual) Eosinophils # (Manual) Basophils # (Manual) PT INR Fibrinogen dRVVT Confirm Interp Factor V Activity POC ABG pH POC ABG pCO2 POC ABG pO2 ABG pO2 ABG HCO3 ABG Base Excess ABG Hemoglobin Oxyhemoglobin Sodium Potassium Chloride Carbon Dioxide BUN Creatinine Glucose POC Glucose 132 H 120 H Lactic Acid Calcium Ionized Calcium Phosphorus Magnesium Direct Bilirubin AST ALT Alkaline Phosphatase Lactate Dehydrogenase Troponin T C-Reactive Protein Total Protein Albumin Prealbumin Triglycerides Cholesterol LDL Cholesterol Direct HDL Cholesterol PTH Intact Urine pH Urine WBC (Auto) Urine Creatinine Urine Total Protein Fluid Total Protein Vancomycin Trough Rheumatoid Factor Complement C4 Miscellaneous Test Crossmatch 11/13/16 11/13/16 11/13/16 11:43 17:09 23:41 WBC RBC Hgb Hct MCV MCH MCHC RDW Plt Count Lymph % (Auto) [place] % (Auto) Lymph # [place] # Baso # Seg Neutrophils % Seg Neuts % (Manual) Lymphocytes % (Manual) Monocytes % (Manual) Eosinophils % (Manual) Basophils % (Manual) Nucleated RBC % Seg Neutrophils # Seg Neutrophils # Man Lymphocytes # (Manual) Monocytes # (Manual) Eosinophils # (Manual) Basophils # (Manual) PT INR Fibrinogen dRVVT Confirm Interp Factor V Activity POC ABG pH POC ABG pCO2 POC ABG pO2 ABG pO2 ABG HCO3 ABG Base Excess ABG Hemoglobin Oxyhemoglobin Sodium Potassium Chloride Carbon Dioxide BUN Creatinine Glucose POC Glucose 114 H 113 H 108 H Lactic Acid Calcium Ionized Calcium Phosphorus Magnesium Direct Bilirubin AST ALT Alkaline Phosphatase Lactate Dehydrogenase Troponin T C-Reactive Protein Total Protein Albumin Prealbumin Triglycerides Cholesterol LDL Cholesterol Direct HDL Cholesterol PTH Intact Urine pH Urine WBC (Auto) Urine Creatinine Urine Total Protein Fluid Total Protein Vancomycin Trough Rheumatoid Factor Complement C4 Miscellaneous Test Crossmatch 11/13/16 11/15/16 11/15/16 Unknown 00:37 03:30 WBC 11.2 H RBC 2.72 L Hgb 7.6 L Hct 23.4 L MCV MCH MCHC RDW 16.5 H Plt Count Lymph % (Auto) [place] % (Auto) Lymph # [place] # Baso # Seg Neutrophils % Seg Neuts % (Manual) Lymphocytes % (Manual) Monocytes % (Manual) Eosinophils % (Manual) Basophils % (Manual) Nucleated RBC % Seg Neutrophils # Seg Neutrophils # Man Lymphocytes # (Manual) Monocytes # (Manual) Eosinophils # (Manual) Basophils # (Manual) PT INR Fibrinogen dRVVT Confirm Interp Factor V Activity POC ABG pH POC ABG pCO2 POC ABG pO2 ABG pO2 ABG HCO3 ABG Base Excess ABG Hemoglobin Oxyhemoglobin Sodium 135 L Potassium Chloride 95.2 L Carbon Dioxide BUN 52 H Creatinine 2.2 H Glucose POC Glucose 108 H Lactic Acid Calcium Ionized Calcium Phosphorus Magnesium Direct Bilirubin AST ALT Alkaline Phosphatase Lactate Dehydrogenase Troponin T C-Reactive Protein Total Protein Albumin Prealbumin Triglycerides Cholesterol LDL Cholesterol Direct HDL Cholesterol PTH Intact Urine pH Urine WBC (Auto) Urine Creatinine Urine Total Protein Fluid Total Protein Vancomycin Trough Rheumatoid Factor Complement C4 Miscellaneous Test Crossmatch 11/15/16 11/15/16 11/15/16 03:30 05:04 11:50 WBC RBC Hgb Hct MCV MCH MCHC RDW Plt Count Lymph % (Auto) [place] % (Auto) Lymph # [place] # Baso # Seg Neutrophils % Seg Neuts % (Manual) Lymphocytes % (Manual) Monocytes % (Manual) Eosinophils % (Manual) Basophils % (Manual) Nucleated RBC % Seg Neutrophils # Seg Neutrophils # Man Lymphocytes # (Manual) Monocytes # (Manual) Eosinophils # (Manual) Basophils # (Manual) PT INR Fibrinogen dRVVT Confirm Interp Factor V Activity POC ABG pH POC ABG pCO2 POC ABG pO2 ABG pO2 ABG HCO3 ABG Base Excess ABG Hemoglobin Oxyhemoglobin Sodium Potassium 3.4 L Chloride Carbon Dioxide BUN 25 H Creatinine 1.5 H Glucose 103 H POC Glucose 121 H 144 H Lactic Acid Calcium Ionized Calcium Phosphorus Magnesium Direct Bilirubin AST ALT Alkaline Phosphatase Lactate Dehydrogenase Troponin T C-Reactive Protein Total Protein Albumin Prealbumin Triglycerides Cholesterol LDL Cholesterol Direct HDL Cholesterol PTH Intact Urine pH Urine WBC (Auto) Urine Creatinine Urine Total Protein Fluid Total Protein Vancomycin Trough Rheumatoid Factor Complement C4 Miscellaneous Test Crossmatch 11/15/16 11/15/16 11/16/16 21:28 23:20 11:44 WBC RBC Hgb Hct MCV MCH MCHC RDW Plt Count Lymph % (Auto) [place] % (Auto) Lymph # [place] # Baso # Seg Neutrophils % Seg Neuts % (Manual) Lymphocytes % (Manual) Monocytes % (Manual) Eosinophils % (Manual) Basophils % (Manual) Nucleated RBC % Seg Neutrophils # Seg Neutrophils # Man Lymphocytes # (Manual) Monocytes # (Manual) Eosinophils # (Manual) Basophils # (Manual) PT INR Fibrinogen dRVVT Confirm Interp Factor V Activity POC ABG pH 7.462 H POC ABG pCO2 POC ABG pO2 71 L ABG pO2 ABG HCO3 ABG Base Excess ABG Hemoglobin Oxyhemoglobin Sodium Potassium Chloride Carbon Dioxide BUN Creatinine Glucose POC Glucose 116 H 133 H Lactic Acid Calcium Ionized Calcium Phosphorus Magnesium Direct Bilirubin AST ALT Alkaline Phosphatase Lactate Dehydrogenase Troponin T C-Reactive Protein Total Protein Albumin Prealbumin Triglycerides Cholesterol LDL Cholesterol Direct HDL Cholesterol PTH Intact Urine pH Urine WBC (Auto) Urine Creatinine Urine Total Protein Fluid Total Protein Vancomycin Trough Rheumatoid Factor Complement C4 Miscellaneous Test Crossmatch 11/16/16 11/16/16 11/16/16 12:20 17:05 23:35 WBC 11.7 H RBC 2.73 L Hgb 7.6 L Hct 23.7 L MCV MCH MCHC RDW 16.6 H Plt Count Lymph % (Auto) [place] % (Auto) Lymph # [place] # Baso # Seg Neutrophils % Seg Neuts % (Manual) Lymphocytes % (Manual) Monocytes % (Manual) Eosinophils % (Manual) Basophils % (Manual) Nucleated RBC % Seg Neutrophils # Seg Neutrophils # Man Lymphocytes # (Manual) Monocytes # (Manual) Eosinophils # (Manual) Basophils # (Manual) PT INR Fibrinogen dRVVT Confirm Interp Factor V Activity POC ABG pH POC ABG pCO2 POC ABG pO2 ABG pO2 ABG HCO3 ABG Base Excess ABG Hemoglobin Oxyhemoglobin Sodium Potassium Chloride Carbon Dioxide BUN Creatinine Glucose POC Glucose 154 H 125 H Lactic Acid Calcium Ionized Calcium Phosphorus Magnesium Direct Bilirubin AST ALT Alkaline Phosphatase Lactate Dehydrogenase Troponin T C-Reactive Protein Total Protein Albumin Prealbumin Triglycerides Cholesterol LDL Cholesterol Direct HDL Cholesterol PTH Intact Urine pH Urine WBC (Auto) Urine Creatinine Urine Total Protein Fluid Total Protein Vancomycin Trough Rheumatoid Factor Complement C4 Miscellaneous Test Crossmatch 11/17/16 11/17/16 11/17/16 03:20 03:20 03:20 WBC RBC 2.55 L Hgb 7.3 L Hct 21.9 L MCV MCH MCHC RDW 16.6 H Plt Count Lymph % (Auto) [place] % (Auto) 11.5 H Lymph # [place] # 1.1 H Baso # Seg Neutrophils % Seg Neuts % (Manual) Lymphocytes % (Manual) Monocytes % (Manual) Eosinophils % (Manual) Basophils % (Manual) Nucleated RBC % Seg Neutrophils # Seg Neutrophils # Man Lymphocytes # (Manual) Monocytes # (Manual) Eosinophils # (Manual) Basophils # (Manual) PT 16.8 H INR 1.37 H Fibrinogen dRVVT Confirm Interp Factor V Activity POC ABG pH POC ABG pCO2 POC ABG pO2 ABG pO2 ABG HCO3 ABG Base Excess ABG Hemoglobin Oxyhemoglobin Sodium Potassium 3.5 L Chloride Carbon Dioxide BUN 21 H Creatinine Glucose POC Glucose Lactic Acid Calcium 7.9 L Ionized Calcium Phosphorus Magnesium Direct Bilirubin AST ALT Alkaline Phosphatase Lactate Dehydrogenase Troponin T C-Reactive Protein Total Protein Albumin Prealbumin Triglycerides Cholesterol LDL Cholesterol Direct HDL Cholesterol PTH Intact Urine pH Urine WBC (Auto) Urine Creatinine Urine Total Protein Fluid Total Protein Vancomycin Trough Rheumatoid Factor Complement C4 Miscellaneous Test Crossmatch 11/17/16 11/17/16 11/17/16 06:34 11:21 21:22 WBC RBC Hgb Hct MCV MCH MCHC RDW Plt Count Lymph % (Auto) [place] % (Auto) Lymph # [place] # Baso # Seg Neutrophils % Seg Neuts % (Manual) Lymphocytes % (Manual) Monocytes % (Manual) Eosinophils % (Manual) Basophils % (Manual) Nucleated RBC % Seg Neutrophils # Seg Neutrophils # Man Lymphocytes # (Manual) Monocytes # (Manual) Eosinophils # (Manual) Basophils # (Manual) PT INR Fibrinogen dRVVT Confirm Interp Factor V Activity POC ABG pH 7.467 H POC ABG pCO2 POC ABG pO2 73 L ABG pO2 ABG HCO3 ABG Base Excess ABG Hemoglobin Oxyhemoglobin Sodium Potassium Chloride Carbon Dioxide BUN Creatinine Glucose POC Glucose 121 H 119 H Lactic Acid Calcium Ionized Calcium Phosphorus Magnesium Direct Bilirubin AST ALT Alkaline Phosphatase Lactate Dehydrogenase Troponin T C-Reactive Protein Total Protein Albumin Prealbumin Triglycerides Cholesterol LDL Cholesterol Direct HDL Cholesterol PTH Intact Urine pH Urine WBC (Auto) Urine Creatinine Urine Total Protein Fluid Total Protein Vancomycin Trough Rheumatoid Factor Complement C4 Miscellaneous Test Crossmatch 11/18/16 11/18/16 11/19/16 12:16 17:19 00:00 WBC RBC Hgb Hct MCV MCH MCHC RDW Plt Count Lymph % (Auto) [place] % (Auto) Lymph # [place] # Baso # Seg Neutrophils % Seg Neuts % (Manual) Lymphocytes % (Manual) Monocytes % (Manual) Eosinophils % (Manual) Basophils % (Manual) Nucleated RBC % Seg Neutrophils # Seg Neutrophils # Man Lymphocytes # (Manual) Monocytes # (Manual) Eosinophils # (Manual) Basophils # (Manual) PT INR Fibrinogen dRVVT Confirm Interp Factor V Activity POC ABG pH POC ABG pCO2 POC ABG pO2 ABG pO2 ABG HCO3 ABG Base Excess ABG Hemoglobin Oxyhemoglobin Sodium Potassium Chloride Carbon Dioxide BUN Creatinine Glucose POC Glucose 124 H 162 H 139 H Lactic Acid Calcium Ionized Calcium Phosphorus Magnesium Direct Bilirubin AST ALT Alkaline Phosphatase Lactate Dehydrogenase Troponin T C-Reactive Protein Total Protein Albumin Prealbumin Triglycerides Cholesterol LDL Cholesterol Direct HDL Cholesterol PTH Intact Urine pH Urine WBC (Auto) Urine Creatinine Urine Total Protein Fluid Total Protein Vancomycin Trough Rheumatoid Factor Complement C4 Miscellaneous Test Crossmatch 11/19/16 11/19/16 11/20/16 05:00 12:43 00:40 WBC RBC Hgb Hct MCV MCH MCHC RDW Plt Count Lymph % (Auto) [place] % (Auto) Lymph # [place] # Baso # Seg Neutrophils % Seg Neuts % (Manual) Lymphocytes % (Manual) Monocytes % (Manual) Eosinophils % (Manual) Basophils % (Manual) Nucleated RBC % Seg Neutrophils # Seg Neutrophils # Man Lymphocytes # (Manual) Monocytes # (Manual) Eosinophils # (Manual) Basophils # (Manual) PT INR Fibrinogen dRVVT Confirm Interp Factor V Activity POC ABG pH POC ABG pCO2 POC ABG pO2 ABG pO2 ABG HCO3 ABG Base Excess ABG Hemoglobin Oxyhemoglobin Sodium Potassium Chloride Carbon Dioxide BUN Creatinine Glucose POC Glucose 110 H 125 H 136 H Lactic Acid Calcium Ionized Calcium Phosphorus Magnesium Direct Bilirubin AST ALT Alkaline Phosphatase Lactate Dehydrogenase Troponin T C-Reactive Protein Total Protein Albumin Prealbumin Triglycerides Cholesterol LDL Cholesterol Direct HDL Cholesterol PTH Intact Urine pH Urine WBC (Auto) Urine Creatinine Urine Total Protein Fluid Total Protein Vancomycin Trough Rheumatoid Factor Complement C4 Miscellaneous Test Crossmatch 11/20/16 11/20/16 11/20/16 05:00 05:00 05:51 WBC 13.1 H RBC 2.74 L Hgb 7.7 L Hct 23.6 L MCV MCH MCHC RDW 16.9 H Plt Count Lymph % (Auto) [place] % (Auto) 10.8 H Lymph # [place] # 1.4 H Baso # Seg Neutrophils % Seg Neuts % (Manual) Lymphocytes % (Manual) Monocytes % (Manual) Eosinophils % (Manual) Basophils % (Manual) Nucleated RBC % Seg Neutrophils # 7.9 H Seg Neutrophils # Man Lymphocytes # (Manual) Monocytes # (Manual) Eosinophils # (Manual) Basophils # (Manual) PT INR Fibrinogen dRVVT Confirm Interp Factor V Activity POC ABG pH POC ABG pCO2 POC ABG pO2 ABG pO2 ABG HCO3 ABG Base Excess ABG Hemoglobin Oxyhemoglobin Sodium Potassium Chloride Carbon Dioxide BUN 31 H Creatinine 1.8 H Glucose 129 H POC Glucose 133 H Lactic Acid Calcium Ionized Calcium Phosphorus Magnesium Direct Bilirubin AST ALT Alkaline Phosphatase Lactate Dehydrogenase Troponin T C-Reactive Protein Total Protein Albumin Prealbumin Triglycerides Cholesterol LDL Cholesterol Direct HDL Cholesterol PTH Intact Urine pH Urine WBC (Auto) Urine Creatinine Urine Total Protein Fluid Total Protein Vancomycin Trough Rheumatoid Factor Complement C4 Miscellaneous Test Crossmatch 11/20/16 11/20/16 11/21/16 12:40 18:10 01:20 WBC RBC Hgb Hct MCV MCH MCHC RDW Plt Count Lymph % (Auto) [place] % (Auto) Lymph # [place] # Baso # Seg Neutrophils % Seg Neuts % (Manual) Lymphocytes % (Manual) Monocytes % (Manual) Eosinophils % (Manual) Basophils % (Manual) Nucleated RBC % Seg Neutrophils # Seg Neutrophils # Man Lymphocytes # (Manual) Monocytes # (Manual) Eosinophils # (Manual) Basophils # (Manual) PT INR Fibrinogen dRVVT Confirm Interp Factor V Activity POC ABG pH POC ABG pCO2 POC ABG pO2 ABG pO2 ABG HCO3 ABG Base Excess ABG Hemoglobin Oxyhemoglobin Sodium Potassium Chloride Carbon Dioxide BUN Creatinine Glucose POC Glucose 134 H 138 H 136 H Lactic Acid Calcium Ionized Calcium Phosphorus Magnesium Direct Bilirubin AST ALT Alkaline Phosphatase Lactate Dehydrogenase Troponin T C-Reactive Protein Total Protein Albumin Prealbumin Triglycerides Cholesterol LDL Cholesterol Direct HDL Cholesterol PTH Intact Urine pH Urine WBC (Auto) Urine Creatinine Urine Total Protein Fluid Total Protein Vancomycin Trough Rheumatoid Factor Complement C4 Miscellaneous Test Crossmatch 11/21/16 11/21/16 11/21/16 07:04 07:45 07:45 WBC 22.0 H RBC 2.91 L Hgb 8.2 L Hct 25.4 L MCV MCH MCHC RDW 17.1 H Plt Count Lymph % (Auto) [place] % (Auto) Lymph # [place] # Baso # Seg Neutrophils % Seg Neuts % (Manual) Lymphocytes % (Manual) 8.0 L Monocytes % (Manual) Eosinophils % (Manual) Basophils % (Manual) Nucleated RBC % Seg Neutrophils # Seg Neutrophils # Man 14.7 H Lymphocytes # (Manual) Monocytes # (Manual) 1.1 H Eosinophils # (Manual) Basophils # (Manual) PT INR Fibrinogen dRVVT Confirm Interp Factor V Activity POC ABG pH POC ABG pCO2 POC ABG pO2 ABG pO2 ABG HCO3 ABG Base Excess ABG Hemoglobin Oxyhemoglobin Sodium Potassium Chloride Carbon Dioxide BUN 42 H Creatinine 2.0 H Glucose POC Glucose 108 H Lactic Acid Calcium Ionized Calcium Phosphorus Magnesium Direct Bilirubin AST ALT Alkaline Phosphatase Lactate Dehydrogenase Troponin T C-Reactive Protein Total Protein Albumin Prealbumin Triglycerides Cholesterol LDL Cholesterol Direct HDL Cholesterol PTH Intact Urine pH Urine WBC (Auto) Urine Creatinine Urine Total Protein Fluid Total Protein Vancomycin Trough Rheumatoid Factor Complement C4 Miscellaneous Test Crossmatch 11/21/16 11/21/16 11/21/16 08:38 10:09 11:20 WBC RBC Hgb Hct MCV MCH MCHC RDW Plt Count Lymph % (Auto) [place] % (Auto) Lymph # [place] # Baso # Seg Neutrophils % Seg Neuts % (Manual) Lymphocytes % (Manual) Monocytes % (Manual) Eosinophils % (Manual) Basophils % (Manual) Nucleated RBC % Seg Neutrophils # Seg Neutrophils # Man Lymphocytes # (Manual) Monocytes # (Manual) Eosinophils # (Manual) Basophils # (Manual) PT INR Fibrinogen dRVVT Confirm Interp Factor V Activity POC ABG pH 7.346 L POC ABG pCO2 34.4 L POC ABG pO2 314 H ABG pO2 ABG HCO3 ABG Base Excess ABG Hemoglobin Oxyhemoglobin Sodium Potassium Chloride Carbon Dioxide BUN Creatinine Glucose POC Glucose 195 H 153 H Lactic Acid Calcium Ionized Calcium Phosphorus Magnesium Direct Bilirubin AST ALT Alkaline Phosphatase Lactate Dehydrogenase Troponin T C-Reactive Protein Total Protein Albumin Prealbumin Triglycerides Cholesterol LDL Cholesterol Direct HDL Cholesterol PTH Intact Urine pH Urine WBC (Auto) Urine Creatinine Urine Total Protein Fluid Total Protein Vancomycin Trough Rheumatoid Factor Complement C4 Miscellaneous Test Crossmatch 11/21/16 11/22/16 11/22/16 23:37 04:48 05:00 WBC 29.7 H RBC 2.73 L Hgb 7.5 L Hct 24.2 L MCV MCH 27 L MCHC RDW 17.4 H Plt Count Lymph % (Auto) [place] % (Auto) Lymph # [place] # Baso # Seg Neutrophils % Seg Neuts % (Manual) Lymphocytes % (Manual) 7.0 L Monocytes % (Manual) Eosinophils % (Manual) Basophils % (Manual) Nucleated RBC % Seg Neutrophils # Seg Neutrophils # Man 15.4 H Lymphocytes # (Manual) Monocytes # (Manual) Eosinophils # (Manual) Basophils # (Manual) PT INR Fibrinogen dRVVT Confirm Interp Factor V Activity POC ABG pH POC ABG pCO2 24.6 L POC ABG pO2 189 H ABG pO2 ABG HCO3 ABG Base Excess ABG Hemoglobin Oxyhemoglobin Sodium Potassium Chloride Carbon Dioxide BUN Creatinine Glucose POC Glucose 65 L Lactic Acid Calcium Ionized Calcium Phosphorus Magnesium Direct Bilirubin AST ALT Alkaline Phosphatase Lactate Dehydrogenase Troponin T C-Reactive Protein Total Protein Albumin Prealbumin Triglycerides Cholesterol LDL Cholesterol Direct HDL Cholesterol PTH Intact Urine pH Urine WBC (Auto) Urine Creatinine Urine Total Protein Fluid Total Protein Vancomycin Trough Rheumatoid Factor Complement C4 Miscellaneous Test Crossmatch 11/22/16 11/23/16 11/23/16 05:00 03:44 04:06 WBC RBC 2.52 L Hgb 7.2 L Hct 21.5 L MCV MCH MCHC RDW 17.1 H Plt Count Lymph % (Auto) [place] % (Auto) 12.4 H Lymph # [place] # 1.4 H Baso # Seg Neutrophils % Seg Neuts % (Manual) Lymphocytes % (Manual) Monocytes % (Manual) Eosinophils % (Manual) Basophils % (Manual) Nucleated RBC % Seg Neutrophils # Seg Neutrophils # Man Lymphocytes # (Manual) Monocytes # (Manual) Eosinophils # (Manual) Basophils # (Manual) PT INR Fibrinogen dRVVT Confirm Interp Factor V Activity POC ABG pH 7.493 H POC ABG pCO2 29.5 L POC ABG pO2 49 L ABG pO2 ABG HCO3 ABG Base Excess ABG Hemoglobin Oxyhemoglobin Sodium 134 L Potassium Chloride 95.9 L Carbon Dioxide 14 L D BUN 51 H Creatinine 2.6 H Glucose POC Glucose Lactic Acid Calcium Ionized Calcium Phosphorus Magnesium Direct Bilirubin AST ALT Alkaline Phosphatase Lactate Dehydrogenase Troponin T C-Reactive Protein Total Protein Albumin Prealbumin Triglycerides Cholesterol LDL Cholesterol Direct HDL Cholesterol PTH Intact Urine pH Urine WBC (Auto) Urine Creatinine Urine Total Protein Fluid Total Protein Vancomycin Trough Rheumatoid Factor Complement C4 Miscellaneous Test Crossmatch 11/23/16 11/23/16 11/24/16 04:06 11:29 06:39 WBC RBC Hgb Hct MCV MCH MCHC RDW Plt Count Lymph % (Auto) [place] % (Auto) Lymph # [place] # Baso # Seg Neutrophils % Seg Neuts % (Manual) Lymphocytes % (Manual) Monocytes % (Manual) Eosinophils % (Manual) Basophils % (Manual) Nucleated RBC % Seg Neutrophils # Seg Neutrophils # Man Lymphocytes # (Manual) Monocytes # (Manual) Eosinophils # (Manual) Basophils # (Manual) PT INR Fibrinogen dRVVT Confirm Interp Factor V Activity POC ABG pH POC ABG pCO2 POC ABG pO2 ABG pO2 ABG HCO3 ABG Base Excess ABG Hemoglobin Oxyhemoglobin Sodium 136 L Potassium Chloride 95.2 L Carbon Dioxide BUN 60 H Creatinine 2.9 H Glucose POC Glucose 69 L 305 H Lactic Acid Calcium Ionized Calcium Phosphorus Magnesium 1.60 L Direct Bilirubin AST ALT Alkaline Phosphatase Lactate Dehydrogenase Troponin T C-Reactive Protein Total Protein Albumin Prealbumin Triglycerides Cholesterol LDL Cholesterol Direct HDL Cholesterol PTH Intact Urine pH Urine WBC (Auto) Urine Creatinine Urine Total Protein Fluid Total Protein Vancomycin Trough Rheumatoid Factor Complement C4 Miscellaneous Test Crossmatch 11/24/16 11/24/16 11/24/16 06:43 08:08 08:08 WBC 11.2 H RBC 2.47 L Hgb 6.8 L Hct 20.6 L MCV MCH MCHC RDW 17.0 H Plt Count Lymph % (Auto) [place] % (Auto) 10.3 H Lymph # [place] # 1.2 H Baso # Seg Neutrophils % Seg Neuts % (Manual) Lymphocytes % (Manual) Monocytes % (Manual) Eosinophils % (Manual) Basophils % (Manual) Nucleated RBC % Seg Neutrophils # Seg Neutrophils # Man Lymphocytes # (Manual) Monocytes # (Manual) Eosinophils # (Manual) Basophils # (Manual) PT INR Fibrinogen dRVVT Confirm Interp Factor V Activity POC ABG pH POC ABG pCO2 POC ABG pO2 ABG pO2 ABG HCO3 ABG Base Excess ABG Hemoglobin Oxyhemoglobin Sodium 135 L Potassium Chloride 96.3 L Carbon Dioxide BUN 61 H Creatinine 3.1 H Glucose POC Glucose 62 L Lactic Acid Calcium 8.2 L Ionized Calcium Phosphorus Magnesium Direct Bilirubin AST ALT Alkaline Phosphatase Lactate Dehydrogenase Troponin T C-Reactive Protein Total Protein Albumin Prealbumin Triglycerides Cholesterol LDL Cholesterol Direct HDL Cholesterol PTH Intact Urine pH Urine WBC (Auto) Urine Creatinine Urine Total Protein Fluid Total Protein Vancomycin Trough Rheumatoid Factor Complement C4 Miscellaneous Test Crossmatch 11/24/16 11/24/16 11/24/16 08:34 11:20 12:41 WBC RBC Hgb Hct MCV MCH MCHC RDW Plt Count Lymph % (Auto) [place] % (Auto) Lymph # [place] # Baso # Seg Neutrophils % Seg Neuts % (Manual) Lymphocytes % (Manual) Monocytes % (Manual) Eosinophils % (Manual) Basophils % (Manual) Nucleated RBC % Seg Neutrophils # Seg Neutrophils # Man Lymphocytes # (Manual) Monocytes # (Manual) Eosinophils # (Manual) Basophils # (Manual) PT INR Fibrinogen dRVVT Confirm Interp Factor V Activity POC ABG pH POC ABG pCO2 POC ABG pO2 ABG pO2 ABG HCO3 ABG Base Excess ABG Hemoglobin Oxyhemoglobin Sodium Potassium Chloride Carbon Dioxide BUN Creatinine Glucose POC Glucose 108 H Lactic Acid Calcium Ionized Calcium Phosphorus Magnesium 1.60 L Direct Bilirubin AST ALT Alkaline Phosphatase Lactate Dehydrogenase Troponin T C-Reactive Protein Total Protein Albumin Prealbumin Triglycerides Cholesterol LDL Cholesterol Direct HDL Cholesterol PTH Intact Urine pH Urine WBC (Auto) Urine Creatinine Urine Total Protein Fluid Total Protein Vancomycin Trough Rheumatoid Factor Complement C4 Miscellaneous Test Crossmatch See Detail 11/25/16 11/25/16 11/25/16 00:03 04:42 04:42 WBC RBC 3.03 L Hgb 8.6 L Hct 25.3 L MCV MCH MCHC RDW 16.2 H Plt Count Lymph % (Auto) [place] % (Auto) 8.1 H Lymph # [place] # Baso # Seg Neutrophils % 71.3 H Seg Neuts % (Manual) Lymphocytes % (Manual) Monocytes % (Manual) Eosinophils % (Manual) Basophils % (Manual) Nucleated RBC % Seg Neutrophils # Seg Neutrophils # Man Lymphocytes # (Manual) Monocytes # (Manual) Eosinophils # (Manual) Basophils # (Manual) PT INR Fibrinogen dRVVT Confirm Interp Factor V Activity POC ABG pH POC ABG pCO2 POC ABG pO2 ABG pO2 ABG HCO3 ABG Base Excess ABG Hemoglobin Oxyhemoglobin Sodium Potassium Chloride Carbon Dioxide BUN 61 H Creatinine 3.0 H Glucose 102 H POC Glucose 113 H Lactic Acid Calcium 8.2 L Ionized Calcium Phosphorus Magnesium Direct Bilirubin AST ALT Alkaline Phosphatase 142 H Lactate Dehydrogenase Troponin T C-Reactive Protein Total Protein 5.7 L Albumin 1.5 L Prealbumin Triglycerides Cholesterol LDL Cholesterol Direct HDL Cholesterol PTH Intact Urine pH Urine WBC (Auto) Urine Creatinine Urine Total Protein Fluid Total Protein Vancomycin Trough Rheumatoid Factor Complement C4 Miscellaneous Test Crossmatch 11/25/16 11/25/16 11/25/16 05:12 11:31 14:12 WBC RBC Hgb Hct MCV MCH MCHC RDW Plt Count Lymph % (Auto) [place] % (Auto) Lymph # [place] # Baso # Seg Neutrophils % Seg Neuts % (Manual) Lymphocytes % (Manual) Monocytes % (Manual) Eosinophils % (Manual) Basophils % (Manual) Nucleated RBC % Seg Neutrophils # Seg Neutrophils # Man Lymphocytes # (Manual) Monocytes # (Manual) Eosinophils # (Manual) Basophils # (Manual) PT INR Fibrinogen dRVVT Confirm Interp Factor V Activity POC ABG pH 7.487 H POC ABG pCO2 POC ABG pO2 153 H ABG pO2 ABG HCO3 ABG Base Excess ABG Hemoglobin Oxyhemoglobin Sodium Potassium Chloride Carbon Dioxide BUN Creatinine Glucose POC Glucose 131 H 140 H Lactic Acid Calcium Ionized Calcium Phosphorus Magnesium Direct Bilirubin AST ALT Alkaline Phosphatase Lactate Dehydrogenase Troponin T C-Reactive Protein Total Protein Albumin Prealbumin Triglycerides Cholesterol LDL Cholesterol Direct HDL Cholesterol PTH Intact Urine pH Urine WBC (Auto) Urine Creatinine Urine Total Protein Fluid Total Protein Vancomycin Trough Rheumatoid Factor Complement C4 Miscellaneous Test Crossmatch 11/25/16 11/26/16 11/26/16 17:23 00:09 05:13 WBC RBC 2.94 L Hgb 8.4 L Hct 24.6 L MCV MCH MCHC RDW 16.4 H Plt Count Lymph % (Auto) [place] % (Auto) 12.3 H Lymph # [place] # 1.1 H Baso # Seg Neutrophils % Seg Neuts % (Manual) Lymphocytes % (Manual) Monocytes % (Manual) Eosinophils % (Manual) Basophils % (Manual) Nucleated RBC % Seg Neutrophils # Seg Neutrophils # Man Lymphocytes # (Manual) Monocytes # (Manual) Eosinophils # (Manual) Basophils # (Manual) PT INR Fibrinogen dRVVT Confirm Interp Factor V Activity POC ABG pH POC ABG pCO2 POC ABG pO2 ABG pO2 ABG HCO3 ABG Base Excess ABG Hemoglobin Oxyhemoglobin Sodium Potassium Chloride Carbon Dioxide BUN Creatinine Glucose POC Glucose 146 H 112 H Lactic Acid Calcium Ionized Calcium Phosphorus Magnesium Direct Bilirubin AST ALT Alkaline Phosphatase Lactate Dehydrogenase Troponin T C-Reactive Protein Total Protein Albumin Prealbumin Triglycerides Cholesterol LDL Cholesterol Direct HDL Cholesterol PTH Intact Urine pH Urine WBC (Auto) Urine Creatinine Urine Total Protein Fluid Total Protein Vancomycin Trough Rheumatoid Factor Complement C4 Miscellaneous Test Crossmatch 11/26/16 11/26/16 11/26/16 05:13 05:28 11:53 WBC RBC Hgb Hct MCV MCH MCHC RDW Plt Count Lymph % (Auto) [place] % (Auto) Lymph # [place] # Baso # Seg Neutrophils % Seg Neuts % (Manual) Lymphocytes % (Manual) Monocytes % (Manual) Eosinophils % (Manual) Basophils % (Manual) Nucleated RBC % Seg Neutrophils # Seg Neutrophils # Man Lymphocytes # (Manual) Monocytes # (Manual) Eosinophils # (Manual) Basophils # (Manual) PT INR Fibrinogen dRVVT Confirm Interp Factor V Activity POC ABG pH POC ABG pCO2 POC ABG pO2 ABG pO2 ABG HCO3 ABG Base Excess ABG Hemoglobin Oxyhemoglobin Sodium Potassium Chloride 97.8 L Carbon Dioxide BUN 37 H Creatinine 2.0 H Glucose 109 H POC Glucose 117 H 111 H Lactic Acid Calcium 7.9 L Ionized Calcium Phosphorus 1.80 L D Magnesium Direct Bilirubin AST ALT Alkaline Phosphatase Lactate Dehydrogenase Troponin T C-Reactive Protein Total Protein Albumin Prealbumin Triglycerides Cholesterol LDL Cholesterol Direct HDL Cholesterol PTH Intact Urine pH Urine WBC (Auto) Urine Creatinine Urine Total Protein Fluid Total Protein Vancomycin Trough Rheumatoid Factor Complement C4 Miscellaneous Test Crossmatch 11/26/16 11/27/16 11/27/16 17:14 04:50 06:02 WBC RBC Hgb Hct MCV MCH MCHC RDW Plt Count Lymph % (Auto) [place] % (Auto) Lymph # [place] # Baso # Seg Neutrophils % Seg Neuts % (Manual) Lymphocytes % (Manual) Monocytes % (Manual) Eosinophils % (Manual) Basophils % (Manual) Nucleated RBC % Seg Neutrophils # Seg Neutrophils # Man Lymphocytes # (Manual) Monocytes # (Manual) Eosinophils # (Manual) Basophils # (Manual) PT INR Fibrinogen dRVVT Confirm Interp Factor V Activity POC ABG pH POC ABG pCO2 POC ABG pO2 ABG pO2 75.2 L ABG HCO3 26.4 H ABG Base Excess ABG Hemoglobin 7.6 L Oxyhemoglobin 94.8 L Sodium Potassium Chloride Carbon Dioxide BUN 49 H Creatinine 2.3 H Glucose POC Glucose 115 H Lactic Acid Calcium Ionized Calcium Phosphorus 1.50 L Magnesium Direct Bilirubin AST ALT Alkaline Phosphatase Lactate Dehydrogenase Troponin T C-Reactive Protein Total Protein Albumin Prealbumin Triglycerides Cholesterol LDL Cholesterol Direct HDL Cholesterol PTH Intact Urine pH Urine WBC (Auto) Urine Creatinine Urine Total Protein Fluid Total Protein Vancomycin Trough Rheumatoid Factor Complement C4 Miscellaneous Test Crossmatch 11/27/16 11/27/16 11/27/16 06:02 11:25 17:25 WBC 11.6 H RBC 2.75 L Hgb 7.6 L Hct 23.4 L MCV MCH MCHC RDW 16.5 H Plt Count Lymph % (Auto) [place] % (Auto) Lymph # [place] # Baso # Seg Neutrophils % Seg Neuts % (Manual) Lymphocytes % (Manual) Monocytes % (Manual) Eosinophils % (Manual) Basophils % (Manual) Nucleated RBC % Seg Neutrophils # Seg Neutrophils # Man Lymphocytes # (Manual) Monocytes # (Manual) Eosinophils # (Manual) Basophils # (Manual) PT INR Fibrinogen dRVVT Confirm Interp Factor V Activity POC ABG pH POC ABG pCO2 POC ABG pO2 ABG pO2 ABG HCO3 ABG Base Excess ABG Hemoglobin Oxyhemoglobin Sodium Potassium Chloride Carbon Dioxide BUN Creatinine Glucose POC Glucose 114 H 126 H Lactic Acid Calcium Ionized Calcium Phosphorus Magnesium Direct Bilirubin AST ALT Alkaline Phosphatase Lactate Dehydrogenase Troponin T C-Reactive Protein Total Protein Albumin Prealbumin Triglycerides Cholesterol LDL Cholesterol Direct HDL Cholesterol PTH Intact Urine pH Urine WBC (Auto) Urine Creatinine Urine Total Protein Fluid Total Protein Vancomycin Trough Rheumatoid Factor Complement C4 Miscellaneous Test Crossmatch 11/28/16 11/28/16 11/28/16 04:45 05:33 05:44 WBC RBC Hgb Hct MCV MCH MCHC RDW Plt Count Lymph % (Auto) [place] % (Auto) Lymph # [place] # Baso # Seg Neutrophils % Seg Neuts % (Manual) Lymphocytes % (Manual) Monocytes % (Manual) Eosinophils % (Manual) Basophils % (Manual) Nucleated RBC % Seg Neutrophils # Seg Neutrophils # Man Lymphocytes # (Manual) Monocytes # (Manual) Eosinophils # (Manual) Basophils # (Manual) PT INR Fibrinogen dRVVT Confirm Interp Factor V Activity POC ABG pH POC ABG pCO2 POC ABG pO2 ABG pO2 99.3 H ABG HCO3 ABG Base Excess ABG Hemoglobin 8.3 L Oxyhemoglobin Sodium Potassium Chloride Carbon Dioxide BUN 63 H Creatinine 2.4 H Glucose 102 H POC Glucose 108 H Lactic Acid Calcium Ionized Calcium Phosphorus 1.80 L Magnesium Direct Bilirubin AST ALT Alkaline Phosphatase Lactate Dehydrogenase Troponin T C-Reactive Protein Total Protein Albumin Prealbumin Triglycerides Cholesterol LDL Cholesterol Direct HDL Cholesterol PTH Intact Urine pH Urine WBC (Auto) Urine Creatinine Urine Total Protein Fluid Total Protein Vancomycin Trough Rheumatoid Factor Complement C4 Miscellaneous Test Crossmatch 11/28/16 11/28/16 11/28/16 12:31 16:09 23:46 WBC RBC Hgb Hct MCV MCH MCHC RDW Plt Count Lymph % (Auto) [place] % (Auto) Lymph # [place] # Baso # Seg Neutrophils % Seg Neuts % (Manual) Lymphocytes % (Manual) Monocytes % (Manual) Eosinophils % (Manual) Basophils % (Manual) Nucleated RBC % Seg Neutrophils # Seg Neutrophils # Man Lymphocytes # (Manual) Monocytes # (Manual) Eosinophils # (Manual) Basophils # (Manual) PT INR Fibrinogen dRVVT Confirm Interp Factor V Activity POC ABG pH POC ABG pCO2 POC ABG pO2 ABG pO2 ABG HCO3 ABG Base Excess ABG Hemoglobin Oxyhemoglobin Sodium Potassium Chloride Carbon Dioxide BUN Creatinine Glucose POC Glucose 126 H 111 H 119 H Lactic Acid Calcium Ionized Calcium Phosphorus Magnesium Direct Bilirubin AST ALT Alkaline Phosphatase Lactate Dehydrogenase Troponin T C-Reactive Protein Total Protein Albumin Prealbumin Triglycerides Cholesterol LDL Cholesterol Direct HDL Cholesterol PTH Intact Urine pH Urine WBC (Auto) Urine Creatinine Urine Total Protein Fluid Total Protein Vancomycin Trough Rheumatoid Factor Complement C4 Miscellaneous Test Crossmatch 11/29/16 11/29/16 11/29/16 03:33 04:52 05:10 WBC RBC Hgb Hct MCV MCH MCHC RDW Plt Count Lymph % (Auto) [place] % (Auto) Lymph # [place] # Baso # Seg Neutrophils % Seg Neuts % (Manual) Lymphocytes % (Manual) Monocytes % (Manual) Eosinophils % (Manual) Basophils % (Manual) Nucleated RBC % Seg Neutrophils # Seg Neutrophils # Man Lymphocytes # (Manual) Monocytes # (Manual) Eosinophils # (Manual) Basophils # (Manual) PT INR Fibrinogen dRVVT Confirm Interp Factor V Activity POC ABG pH POC ABG pCO2 POC ABG pO2 ABG pO2 ABG HCO3 ABG Base Excess ABG Hemoglobin 7.0 L Oxyhemoglobin 94.9 L Sodium Potassium Chloride Carbon Dioxide BUN 73 H Creatinine 2.7 H Glucose POC Glucose 108 H Lactic Acid Calcium Ionized Calcium Phosphorus Magnesium Direct Bilirubin AST ALT Alkaline Phosphatase Lactate Dehydrogenase Troponin T C-Reactive Protein Total Protein Albumin Prealbumin Triglycerides Cholesterol LDL Cholesterol Direct HDL Cholesterol PTH Intact Urine pH Urine WBC (Auto) Urine Creatinine Urine Total Protein Fluid Total Protein Vancomycin Trough Rheumatoid Factor Complement C4 Miscellaneous Test Crossmatch 11/29/16 11/29/16 11/29/16 12:16 18:05 23:46 WBC RBC Hgb Hct MCV MCH MCHC RDW Plt Count Lymph % (Auto) [place] % (Auto) Lymph # [place] # Baso # Seg Neutrophils % Seg Neuts % (Manual) Lymphocytes % (Manual) Monocytes % (Manual) Eosinophils % (Manual) Basophils % (Manual) Nucleated RBC % Seg Neutrophils # Seg Neutrophils # Man Lymphocytes # (Manual) Monocytes # (Manual) Eosinophils # (Manual) Basophils # (Manual) PT INR Fibrinogen dRVVT Confirm Interp Factor V Activity POC ABG pH POC ABG pCO2 POC ABG pO2 ABG pO2 ABG HCO3 ABG Base Excess ABG Hemoglobin Oxyhemoglobin Sodium Potassium Chloride Carbon Dioxide BUN Creatinine Glucose POC Glucose 133 H 146 H 141 H Lactic Acid Calcium Ionized Calcium Phosphorus Magnesium Direct Bilirubin AST ALT Alkaline Phosphatase Lactate Dehydrogenase Troponin T C-Reactive Protein Total Protein Albumin Prealbumin Triglycerides Cholesterol LDL Cholesterol Direct HDL Cholesterol PTH Intact Urine pH Urine WBC (Auto) Urine Creatinine Urine Total Protein Fluid Total Protein Vancomycin Trough Rheumatoid Factor Complement C4 Miscellaneous Test Crossmatch 11/30/16 11/30/16 11/30/16 04:17 04:17 04:32 WBC 12.0 H RBC 2.80 L Hgb 7.8 L Hct 23.6 L MCV MCH MCHC RDW 16.6 H Plt Count Lymph % (Auto) [place] % (Auto) 11.3 H Lymph # [place] # 1.4 H Baso # Seg Neutrophils % Seg Neuts % (Manual) Lymphocytes % (Manual) Monocytes % (Manual) Eosinophils % (Manual) Basophils % (Manual) Nucleated RBC % Seg Neutrophils # 8.2 H Seg Neutrophils # Man Lymphocytes # (Manual) Monocytes # (Manual) Eosinophils # (Manual) Basophils # (Manual) PT INR Fibrinogen dRVVT Confirm Interp Factor V Activity POC ABG pH POC ABG pCO2 POC ABG pO2 ABG pO2 ABG HCO3 ABG Base Excess ABG Hemoglobin Oxyhemoglobin Sodium 169 H* D Potassium 5.1 H Chloride 121.5 H Carbon Dioxide BUN 34 H Creatinine 1.3 H D Glucose 133 H POC Glucose 131 H Lactic Acid Calcium 10.3 H Ionized Calcium Phosphorus Magnesium Direct Bilirubin AST ALT Alkaline Phosphatase Lactate Dehydrogenase Troponin T C-Reactive Protein Total Protein Albumin Prealbumin Triglycerides Cholesterol LDL Cholesterol Direct HDL Cholesterol PTH Intact Urine pH Urine WBC (Auto) Urine Creatinine Urine Total Protein Fluid Total Protein Vancomycin Trough Rheumatoid Factor Complement C4 Miscellaneous Test Crossmatch 11/30/16 11/30/16 11/30/16 05:45 11:10 17:26 WBC RBC Hgb Hct MCV MCH MCHC RDW Plt Count Lymph % (Auto) [place] % (Auto) Lymph # [place] # Baso # Seg Neutrophils % Seg Neuts % (Manual) Lymphocytes % (Manual) Monocytes % (Manual) Eosinophils % (Manual) Basophils % (Manual) Nucleated RBC % Seg Neutrophils # Seg Neutrophils # Man Lymphocytes # (Manual) Monocytes # (Manual) Eosinophils # (Manual) Basophils # (Manual) PT INR Fibrinogen dRVVT Confirm Interp Factor V Activity POC ABG pH POC ABG pCO2 POC ABG pO2 ABG pO2 ABG HCO3 ABG Base Excess ABG Hemoglobin Oxyhemoglobin Sodium Potassium Chloride Carbon Dioxide BUN 45 H Creatinine 1.6 H Glucose 131 H POC Glucose 146 H 134 H Lactic Acid Calcium Ionized Calcium Phosphorus Magnesium Direct Bilirubin AST ALT Alkaline Phosphatase Lactate Dehydrogenase Troponin T C-Reactive Protein Total Protein Albumin Prealbumin Triglycerides Cholesterol LDL Cholesterol Direct HDL Cholesterol PTH Intact Urine pH Urine WBC (Auto) Urine Creatinine Urine Total Protein Fluid Total Protein Vancomycin Trough Rheumatoid Factor Complement C4 Miscellaneous Test Crossmatch 11/30/16 12/01/16 12/01/16 23:35 00:06 03:35 WBC RBC Hgb Hct MCV MCH MCHC RDW Plt Count Lymph % (Auto) [place] % (Auto) Lymph # [place] # Baso # Seg Neutrophils % Seg Neuts % (Manual) Lymphocytes % (Manual) Monocytes % (Manual) Eosinophils % (Manual) Basophils % (Manual) Nucleated RBC % Seg Neutrophils # Seg Neutrophils # Man Lymphocytes # (Manual) Monocytes # (Manual) Eosinophils # (Manual) Basophils # (Manual) PT INR Fibrinogen dRVVT Confirm Interp Factor V Activity POC ABG pH POC ABG pCO2 POC ABG pO2 ABG pO2 ABG HCO3 ABG Base Excess ABG Hemoglobin 6.9 L Oxyhemoglobin Sodium Potassium Chloride Carbon Dioxide BUN 58 H Creatinine 1.8 H Glucose 146 H POC Glucose 151 H Lactic Acid Calcium Ionized Calcium Phosphorus Magnesium Direct Bilirubin AST ALT Alkaline Phosphatase Lactate Dehydrogenase Troponin T C-Reactive Protein Total Protein Albumin Prealbumin Triglycerides Cholesterol LDL Cholesterol Direct HDL Cholesterol PTH Intact Urine pH Urine WBC (Auto) Urine Creatinine Urine Total Protein Fluid Total Protein Vancomycin Trough Rheumatoid Factor Complement C4 Miscellaneous Test Crossmatch 12/01/16 12/01/16 12/01/16 03:35 05:47 11:52 WBC 12.3 H RBC 2.82 L Hgb 7.8 L Hct 23.7 L MCV MCH MCHC RDW 16.7 H Plt Count Lymph % (Auto) [place] % (Auto) 9.8 H Lymph # [place] # 1.2 H Baso # Seg Neutrophils % Seg Neuts % (Manual) Lymphocytes % (Manual) Monocytes % (Manual) Eosinophils % (Manual) Basophils % (Manual) Nucleated RBC % Seg Neutrophils # 8.4 H Seg Neutrophils # Man Lymphocytes # (Manual) Monocytes # (Manual) Eosinophils # (Manual) Basophils # (Manual) PT INR Fibrinogen dRVVT Confirm Interp Factor V Activity POC ABG pH POC ABG pCO2 POC ABG pO2 ABG pO2 ABG HCO3 ABG Base Excess ABG Hemoglobin Oxyhemoglobin Sodium Potassium Chloride Carbon Dioxide BUN Creatinine Glucose POC Glucose 152 H 152 H Lactic Acid Calcium Ionized Calcium Phosphorus Magnesium Direct Bilirubin AST ALT Alkaline Phosphatase Lactate Dehydrogenase Troponin T C-Reactive Protein Total Protein Albumin Prealbumin Triglycerides Cholesterol LDL Cholesterol Direct HDL Cholesterol PTH Intact Urine pH Urine WBC (Auto) Urine Creatinine Urine Total Protein Fluid Total Protein Vancomycin Trough Rheumatoid Factor Complement C4 Miscellaneous Test Crossmatch 12/01/16 12/01/16 12/02/16 17:40 23:41 05:00 WBC RBC Hgb Hct MCV MCH MCHC RDW Plt Count Lymph % (Auto) [place] % (Auto) Lymph # [place] # Baso # Seg Neutrophils % Seg Neuts % (Manual) Lymphocytes % (Manual) Monocytes % (Manual) Eosinophils % (Manual) Basophils % (Manual) Nucleated RBC % Seg Neutrophils # Seg Neutrophils # Man Lymphocytes # (Manual) Monocytes # (Manual) Eosinophils # (Manual) Basophils # (Manual) PT INR Fibrinogen dRVVT Confirm Interp Factor V Activity POC ABG pH POC ABG pCO2 POC ABG pO2 ABG pO2 ABG HCO3 ABG Base Excess ABG Hemoglobin Oxyhemoglobin Sodium Potassium Chloride Carbon Dioxide BUN 45 H Creatinine Glucose 115 H POC Glucose 140 H 144 H Lactic Acid Calcium Ionized Calcium Phosphorus Magnesium Direct Bilirubin AST ALT Alkaline Phosphatase Lactate Dehydrogenase Troponin T C-Reactive Protein Total Protein Albumin Prealbumin Triglycerides Cholesterol LDL Cholesterol Direct HDL Cholesterol PTH Intact Urine pH Urine WBC (Auto) Urine Creatinine Urine Total Protein Fluid Total Protein Vancomycin Trough Rheumatoid Factor Complement C4 Miscellaneous Test Crossmatch 12/02/16 12/02/16 12/02/16 05:31 11:20 17:38 WBC RBC Hgb Hct MCV MCH MCHC RDW Plt Count Lymph % (Auto) [place]ick % (Auto) Lymph # M[place]ormick # Baso # Seg Neutrophils % Seg Neuts % (Manual) Lymphocytes % (Manual) Monocytes % (Manual) Eosinophils % (Manual) Basophils % (Manual) Nucleated RBC % Seg Neutrophils # Seg Neutrophils # Man Lymphocytes # (Manual) Monocytes # (Manual) Eosinophils # (Manual) Basophils # (Manual) PT INR Fibrinogen dRVVT Confirm Interp Factor V Activity POC ABG pH POC ABG pCO2 POC ABG pO2 ABG pO2 ABG HCO3 ABG Base Excess ABG Hemoglobin Oxyhemoglobin Sodium Potassium Chloride Carbon Dioxide BUN Creatinine Glucose POC Glucose 136 H 177 H 139 H Lactic Acid Calcium Ionized Calcium Phosphorus Magnesium Direct Bilirubin AST ALT Alkaline Phosphatase Lactate Dehydrogenase Troponin T C-Reactive Protein Total Protein Albumin Prealbumin Triglycerides Cholesterol LDL Cholesterol Direct HDL Cholesterol PTH Intact Urine pH Urine WBC (Auto) Urine Creatinine Urine Total Protein Fluid Total Protein Vancomycin Trough Rheumatoid Factor Complement C4 Miscellaneous Test Crossmatch 12/02/16 12/03/16 12/03/16 23:43 04:00 04:00 WBC 20.4 H RBC 2.74 L Hgb 7.4 L Hct 23.6 L MCV MCH 27 L MCHC RDW 17.1 H Plt Count Lymph % (Auto) [place] % (Auto) Lymph # [place] # Baso # Seg Neutrophils % Seg Neuts % (Manual) 31.0 L Lymphocytes % (Manual) Monocytes % (Manual) Eosinophils % (Manual) Basophils % (Manual) Nucleated RBC % Seg Neutrophils # Seg Neutrophils # Man Lymphocytes # (Manual) Monocytes # (Manual) Eosinophils # (Manual) Basophils # (Manual) PT INR Fibrinogen dRVVT Confirm Interp Factor V Activity POC ABG pH POC ABG pCO2 POC ABG pO2 ABG pO2 ABG HCO3 ABG Base Excess ABG Hemoglobin Oxyhemoglobin Sodium Potassium Chloride Carbon Dioxide BUN 61 H Creatinine 1.6 H Glucose 119 H POC Glucose 158 H Lactic Acid Calcium Ionized Calcium Phosphorus Magnesium Direct Bilirubin AST ALT Alkaline Phosphatase Lactate Dehydrogenase Troponin T C-Reactive Protein Total Protein Albumin Prealbumin Triglycerides Cholesterol LDL Cholesterol Direct HDL Cholesterol PTH Intact Urine pH Urine WBC (Auto) Urine Creatinine Urine Total Protein Fluid Total Protein Vancomycin Trough Rheumatoid Factor Complement C4 Miscellaneous Test Crossmatch 12/03/16 12/03/16 12/03/16 05:02 12:11 18:16 WBC RBC Hgb Hct MCV MCH MCHC RDW Plt Count Lymph % (Auto) [place] % (Auto) Lymph # [place] # Baso # Seg Neutrophils % Seg Neuts % (Manual) Lymphocytes % (Manual) Monocytes % (Manual) Eosinophils % (Manual) Basophils % (Manual) Nucleated RBC % Seg Neutrophils # Seg Neutrophils # Man Lymphocytes # (Manual) Monocytes # (Manual) Eosinophils # (Manual) Basophils # (Manual) PT INR Fibrinogen dRVVT Confirm Interp Factor V Activity POC ABG pH POC ABG pCO2 POC ABG pO2 ABG pO2 ABG HCO3 ABG Base Excess ABG Hemoglobin Oxyhemoglobin Sodium Potassium Chloride Carbon Dioxide BUN Creatinine Glucose POC Glucose 146 H 157 H 124 H Lactic Acid Calcium Ionized Calcium Phosphorus Magnesium Direct Bilirubin AST ALT Alkaline Phosphatase Lactate Dehydrogenase Troponin T C-Reactive Protein Total Protein Albumin Prealbumin Triglycerides Cholesterol LDL Cholesterol Direct HDL Cholesterol PTH Intact Urine pH Urine WBC (Auto) Urine Creatinine Urine Total Protein Fluid Total Protein Vancomycin Trough Rheumatoid Factor Complement C4 Miscellaneous Test Crossmatch 12/03/16 12/04/16 12/04/16 23:41 04:00 04:45 WBC RBC Hgb Hct MCV MCH MCHC RDW Plt Count Lymph % (Auto) [place] % (Auto) Lymph # [place] # Baso # Seg Neutrophils % Seg Neuts % (Manual) Lymphocytes % (Manual) Monocytes % (Manual) Eosinophils % (Manual) Basophils % (Manual) Nucleated RBC % Seg Neutrophils # Seg Neutrophils # Man Lymphocytes # (Manual) Monocytes # (Manual) Eosinophils # (Manual) Basophils # (Manual) PT INR Fibrinogen dRVVT Confirm Interp Factor V Activity POC ABG pH POC ABG pCO2 POC ABG pO2 ABG pO2 ABG HCO3 ABG Base Excess ABG Hemoglobin Oxyhemoglobin Sodium Potassium Chloride Carbon Dioxide BUN 76 H Creatinine 1.6 H Glucose POC Glucose 130 H 136 H Lactic Acid Calcium Ionized Calcium Phosphorus Magnesium Direct Bilirubin AST ALT Alkaline Phosphatase 155 H Lactate Dehydrogenase Troponin T C-Reactive Protein Total Protein 5.5 L Albumin 1.5 L Prealbumin Triglycerides Cholesterol LDL Cholesterol Direct HDL Cholesterol PTH Intact Urine pH Urine WBC (Auto) Urine Creatinine Urine Total Protein Fluid Total Protein Vancomycin Trough Rheumatoid Factor Complement C4 Miscellaneous Test Crossmatch 12/04/16 12/04/16 12/05/16 12:08 17:23 00:10 WBC RBC Hgb Hct MCV MCH MCHC RDW Plt Count Lymph % (Auto) [place] % (Auto) Lymph # [place] # Baso # Seg Neutrophils % Seg Neuts % (Manual) Lymphocytes % (Manual) Monocytes % (Manual) Eosinophils % (Manual) Basophils % (Manual) Nucleated RBC % Seg Neutrophils # Seg Neutrophils # Man Lymphocytes # (Manual) Monocytes # (Manual) Eosinophils # (Manual) Basophils # (Manual) PT INR Fibrinogen dRVVT Confirm Interp Factor V Activity POC ABG pH POC ABG pCO2 POC ABG pO2 ABG pO2 ABG HCO3 ABG Base Excess ABG Hemoglobin Oxyhemoglobin Sodium Potassium Chloride Carbon Dioxide BUN Creatinine Glucose POC Glucose 114 H 129 H 124 H Lactic Acid Calcium Ionized Calcium Phosphorus Magnesium Direct Bilirubin AST ALT Alkaline Phosphatase Lactate Dehydrogenase Troponin T C-Reactive Protein Total Protein Albumin Prealbumin Triglycerides Cholesterol LDL Cholesterol Direct HDL Cholesterol PTH Intact Urine pH Urine WBC (Auto) Urine Creatinine Urine Total Protein Fluid Total Protein Vancomycin Trough Rheumatoid Factor Complement C4 Miscellaneous Test Crossmatch 12/05/16 12/05/16 12/05/16 05:00 05:00 05:18 WBC RBC Hgb Hct MCV MCH MCHC RDW Plt Count Lymph % (Auto) [place] % (Auto) Lymph # [place] # Baso # Seg Neutrophils % Seg Neuts % (Manual) Lymphocytes % (Manual) Monocytes % (Manual) Eosinophils % (Manual) Basophils % (Manual) Nucleated RBC % Seg Neutrophils # Seg Neutrophils # Man Lymphocytes # (Manual) Monocytes # (Manual) Eosinophils # (Manual) Basophils # (Manual) PT INR Fibrinogen dRVVT Confirm Interp Factor V Activity POC ABG pH POC ABG pCO2 POC ABG pO2 ABG pO2 ABG HCO3 ABG Base Excess ABG Hemoglobin Oxyhemoglobin Sodium Potassium Chloride Carbon Dioxide 21 L BUN 85 H Creatinine 1.9 H Glucose 131 H POC Glucose 154 H Lactic Acid Calcium Ionized Calcium Phosphorus Magnesium Direct Bilirubin AST ALT Alkaline Phosphatase Lactate Dehydrogenase Troponin T C-Reactive Protein 19.30 H Total Protein Albumin Prealbumin Triglycerides Cholesterol LDL Cholesterol Direct HDL Cholesterol PTH Intact Urine pH Urine WBC (Auto) Urine Creatinine Urine Total Protein Fluid Total Protein Vancomycin Trough Rheumatoid Factor Complement C4 Miscellaneous Test Crossmatch 12/05/16 12/05/16 12/05/16 11:43 17:46 23:25 WBC RBC Hgb Hct MCV MCH MCHC RDW Plt Count Lymph % (Auto) [place] % (Auto) Lymph # [place] # Baso # Seg Neutrophils % Seg Neuts % (Manual) Lymphocytes % (Manual) Monocytes % (Manual) Eosinophils % (Manual) Basophils % (Manual) Nucleated RBC % Seg Neutrophils # Seg Neutrophils # Man Lymphocytes # (Manual) Monocytes # (Manual) Eosinophils # (Manual) Basophils # (Manual) PT INR Fibrinogen dRVVT Confirm Interp Factor V Activity POC ABG pH POC ABG pCO2 POC ABG pO2 ABG pO2 ABG HCO3 ABG Base Excess ABG Hemoglobin Oxyhemoglobin Sodium Potassium Chloride Carbon Dioxide BUN Creatinine Glucose POC Glucose 117 H 113 H 111 H Lactic Acid Calcium Ionized Calcium Phosphorus Magnesium Direct Bilirubin AST ALT Alkaline Phosphatase Lactate Dehydrogenase Troponin T C-Reactive Protein Total Protein Albumin Prealbumin Triglycerides Cholesterol LDL Cholesterol Direct HDL Cholesterol PTH Intact Urine pH Urine WBC (Auto) Urine Creatinine Urine Total Protein Fluid Total Protein Vancomycin Trough Rheumatoid Factor Complement C4 Miscellaneous Test Crossmatch 12/05/16 12/06/16 12/06/16 Unknown 04:58 06:00 WBC RBC Hgb Hct MCV MCH MCHC RDW Plt Count Lymph % (Auto) [place] % (Auto) Lymph # [place] # Baso # Seg Neutrophils % Seg Neuts % (Manual) Lymphocytes % (Manual) Monocytes % (Manual) Eosinophils % (Manual) Basophils % (Manual) Nucleated RBC % Seg Neutrophils # Seg Neutrophils # Man Lymphocytes # (Manual) Monocytes # (Manual) Eosinophils # (Manual) Basophils # (Manual) PT INR Fibrinogen dRVVT Confirm Interp Factor V Activity POC ABG pH POC ABG pCO2 POC ABG pO2 ABG pO2 75.2 L ABG HCO3 ABG Base Excess -3.4 L ABG Hemoglobin 7.4 L Oxyhemoglobin 94.5 L Sodium Potassium Chloride Carbon Dioxide 20 L BUN 99 H Creatinine 2.1 H Glucose 126 H POC Glucose 145 H Lactic Acid Calcium Ionized Calcium Phosphorus 4.80 H Magnesium Direct Bilirubin AST ALT Alkaline Phosphatase Lactate Dehydrogenase Troponin T C-Reactive Protein Total Protein Albumin Prealbumin Triglycerides Cholesterol LDL Cholesterol Direct HDL Cholesterol PTH Intact Urine pH Urine WBC (Auto) Urine Creatinine Urine Total Protein Fluid Total Protein Vancomycin Trough Rheumatoid Factor Complement C4 Miscellaneous Test Crossmatch 12/06/16 12/06/16 12/06/16 06:46 11:54 17:55 WBC RBC Hgb 8.3 L Hct 26.4 L MCV MCH MCHC RDW Plt Count Lymph % (Auto) [place] % (Auto) Lymph # [place] # Baso # Seg Neutrophils % Seg Neuts % (Manual) Lymphocytes % (Manual) Monocytes % (Manual) Eosinophils % (Manual) Basophils % (Manual) Nucleated RBC % Seg Neutrophils # Seg Neutrophils # Man Lymphocytes # (Manual) Monocytes # (Manual) Eosinophils # (Manual) Basophils # (Manual) PT INR Fibrinogen dRVVT Confirm Interp Factor V Activity POC ABG pH POC ABG pCO2 POC ABG pO2 ABG pO2 ABG HCO3 ABG Base Excess ABG Hemoglobin Oxyhemoglobin Sodium Potassium Chloride Carbon Dioxide BUN Creatinine Glucose POC Glucose 126 H 157 H Lactic Acid Calcium Ionized Calcium Phosphorus Magnesium Direct Bilirubin AST ALT Alkaline Phosphatase Lactate Dehydrogenase Troponin T C-Reactive Protein Total Protein Albumin Prealbumin Triglycerides Cholesterol LDL Cholesterol Direct HDL Cholesterol PTH Intact Urine pH Urine WBC (Auto) Urine Creatinine Urine Total Protein Fluid Total Protein Vancomycin Trough Rheumatoid Factor Complement C4 Miscellaneous Test Crossmatch 12/06/16 12/07/16 12/07/16 23:59 05:34 06:30 WBC RBC Hgb Hct MCV MCH MCHC RDW Plt Count Lymph % (Auto) [place] % (Auto) Lymph # [place] # Baso # Seg Neutrophils % Seg Neuts % (Manual) Lymphocytes % (Manual) Monocytes % (Manual) Eosinophils % (Manual) Basophils % (Manual) Nucleated RBC % Seg Neutrophils # Seg Neutrophils # Man Lymphocytes # (Manual) Monocytes # (Manual) Eosinophils # (Manual) Basophils # (Manual) PT INR Fibrinogen dRVVT Confirm Interp Factor V Activity POC ABG pH POC ABG pCO2 POC ABG pO2 ABG pO2 ABG HCO3 ABG Base Excess ABG Hemoglobin Oxyhemoglobin Sodium Potassium Chloride Carbon Dioxide BUN 67 H Creatinine 1.4 H Glucose 126 H POC Glucose 129 H 129 H Lactic Acid Calcium Ionized Calcium Phosphorus Magnesium Direct Bilirubin AST ALT Alkaline Phosphatase Lactate Dehydrogenase Troponin T C-Reactive Protein Total Protein Albumin Prealbumin Triglycerides Cholesterol LDL Cholesterol Direct HDL Cholesterol PTH Intact Urine pH Urine WBC (Auto) Urine Creatinine Urine Total Protein Fluid Total Protein Vancomycin Trough Rheumatoid Factor Complement C4 Miscellaneous Test Crossmatch 12/07/16 12/07/16 12/07/16 06:30 08:00 09:45 WBC 18.8 H RBC 2.52 L Hgb 6.9 L 6.8 L Hct 21.2 L 21.1 L MCV MCH 27 L MCHC RDW 18.0 H Plt Count Lymph % (Auto) [place] % (Auto) 9.9 H Lymph # M[place]ormick # 1.9 H Baso # Seg Neutrophils % 71.8 H Seg Neuts % (Manual) Lymphocytes % (Manual) Monocytes % (Manual) Eosinophils % (Manual) Basophils % (Manual) Nucleated RBC % Seg Neutrophils # 13.5 H Seg Neutrophils # Man Lymphocytes # (Manual) Monocytes # (Manual) Eosinophils # (Manual) Basophils # (Manual) PT INR Fibrinogen dRVVT Confirm Interp Factor V Activity POC ABG pH POC ABG pCO2 POC ABG pO2 ABG pO2 ABG HCO3 ABG Base Excess ABG Hemoglobin Oxyhemoglobin Sodium Potassium Chloride Carbon Dioxide BUN Creatinine Glucose POC Glucose Lactic Acid Calcium Ionized Calcium Phosphorus Magnesium Direct Bilirubin AST ALT Alkaline Phosphatase Lactate Dehydrogenase Troponin T C-Reactive Protein Total Protein Albumin Prealbumin Triglycerides Cholesterol LDL Cholesterol Direct HDL Cholesterol PTH Intact Urine pH Urine WBC (Auto) Urine Creatinine Urine Total Protein Fluid Total Protein Vancomycin Trough Rheumatoid Factor Complement C4 Miscellaneous Test Crossmatch See Detail 12/07/16 12/07/16 12/07/16 11:44 18:19 23:59 WBC RBC Hgb Hct MCV MCH MCHC RDW Plt Count Lymph % (Auto) [place] % (Auto) Lymph # [place]ick # Baso # Seg Neutrophils % Seg Neuts % (Manual) Lymphocytes % (Manual) Monocytes % (Manual) Eosinophils % (Manual) Basophils % (Manual) Nucleated RBC % Seg Neutrophils # Seg Neutrophils # Man Lymphocytes # (Manual) Monocytes # (Manual) Eosinophils # (Manual) Basophils # (Manual) PT INR Fibrinogen dRVVT Confirm Interp Factor V Activity POC ABG pH POC ABG pCO2 POC ABG pO2 ABG pO2 ABG HCO3 ABG Base Excess ABG Hemoglobin Oxyhemoglobin Sodium Potassium Chloride Carbon Dioxide BUN Creatinine Glucose POC Glucose 137 H 138 H 133 H Lactic Acid Calcium Ionized Calcium Phosphorus Magnesium Direct Bilirubin AST ALT Alkaline Phosphatase Lactate Dehydrogenase Troponin T C-Reactive Protein Total Protein Albumin Prealbumin Triglycerides Cholesterol LDL Cholesterol Direct HDL Cholesterol PTH Intact Urine pH Urine WBC (Auto) Urine Creatinine Urine Total Protein Fluid Total Protein Vancomycin Trough Rheumatoid Factor Complement C4 Miscellaneous Test Crossmatch 12/08/16 12/08/16 12/08/16 05:25 05:30 05:30 WBC 23.8 H RBC 2.88 L Hgb 8.1 L Hct 24.3 L MCV MCH MCHC RDW 16.7 H Plt Count Lymph % (Auto) [place] % (Auto) Lymph # [place] # Baso # Seg Neutrophils % Seg Neuts % (Manual) 76.0 H Lymphocytes % (Manual) 9.0 L Monocytes % (Manual) 9.0 H Eosinophils % (Manual) Basophils % (Manual) Nucleated RBC % Seg Neutrophils # Seg Neutrophils # Man 18.1 H Lymphocytes # (Manual) Monocytes # (Manual) 2.1 H Eosinophils # (Manual) Basophils # (Manual) PT INR Fibrinogen dRVVT Confirm Interp Factor V Activity POC ABG pH POC ABG pCO2 POC ABG pO2 ABG pO2 ABG HCO3 ABG Base Excess ABG Hemoglobin Oxyhemoglobin Sodium Potassium Chloride Carbon Dioxide 21 L BUN 76 H Creatinine 1.6 H Glucose 133 H POC Glucose 177 H Lactic Acid Calcium Ionized Calcium Phosphorus Magnesium Direct Bilirubin AST ALT Alkaline Phosphatase Lactate Dehydrogenase Troponin T C-Reactive Protein Total Protein Albumin Prealbumin Triglycerides Cholesterol LDL Cholesterol Direct HDL Cholesterol PTH Intact Urine pH Urine WBC (Auto) Urine Creatinine Urine Total Protein Fluid Total Protein Vancomycin Trough Rheumatoid Factor Complement C4 Miscellaneous Test Crossmatch 12/08/16 12/08/16 12/09/16 11:45 18:00 00:00 WBC RBC Hgb Hct MCV MCH MCHC RDW Plt Count Lymph % (Auto) [place] % (Auto) Lymph # [place] # Baso # Seg Neutrophils % Seg Neuts % (Manual) Lymphocytes % (Manual) Monocytes % (Manual) Eosinophils % (Manual) Basophils % (Manual) Nucleated RBC % Seg Neutrophils # Seg Neutrophils # Man Lymphocytes # (Manual) Monocytes # (Manual) Eosinophils # (Manual) Basophils # (Manual) PT INR Fibrinogen dRVVT Confirm Interp Factor V Activity POC ABG pH POC ABG pCO2 POC ABG pO2 ABG pO2 ABG HCO3 ABG Base Excess ABG Hemoglobin Oxyhemoglobin Sodium Potassium Chloride Carbon Dioxide BUN Creatinine Glucose POC Glucose 163 H 123 H 137 H Lactic Acid Calcium Ionized Calcium Phosphorus Magnesium Direct Bilirubin AST ALT Alkaline Phosphatase Lactate Dehydrogenase Troponin T C-Reactive Protein Total Protein Albumin Prealbumin Triglycerides Cholesterol LDL Cholesterol Direct HDL Cholesterol PTH Intact Urine pH Urine WBC (Auto) Urine Creatinine Urine Total Protein Fluid Total Protein Vancomycin Trough Rheumatoid Factor Complement C4 Miscellaneous Test Crossmatch 12/09/16 12/09/16 12/09/16 05:34 06:00 06:00 WBC 15.5 H RBC 2.87 L Hgb 8.0 L Hct 24.2 L MCV MCH MCHC RDW 17.2 H Plt Count Lymph % (Auto) [place] % (Auto) 11.6 H Lymph # M[place]ick # 1.8 H Baso # Seg Neutrophils % 70.8 H Seg Neuts % (Manual) Lymphocytes % (Manual) Monocytes % (Manual) Eosinophils % (Manual) Basophils % (Manual) Nucleated RBC % Seg Neutrophils # 11.0 H Seg Neutrophils # Man Lymphocytes # (Manual) Monocytes # (Manual) Eosinophils # (Manual) Basophils # (Manual) PT INR Fibrinogen dRVVT Confirm Interp Factor V Activity POC ABG pH POC ABG pCO2 POC ABG pO2 ABG pO2 ABG HCO3 ABG Base Excess ABG Hemoglobin Oxyhemoglobin Sodium Potassium Chloride Carbon Dioxide BUN 51 H Creatinine Glucose 117 H POC Glucose 136 H Lactic Acid Calcium Ionized Calcium Phosphorus Magnesium Direct Bilirubin AST ALT Alkaline Phosphatase Lactate Dehydrogenase Troponin T C-Reactive Protein Total Protein Albumin Prealbumin Triglycerides Cholesterol LDL Cholesterol Direct HDL Cholesterol PTH Intact Urine pH Urine WBC (Auto) Urine Creatinine Urine Total Protein Fluid Total Protein Vancomycin Trough Rheumatoid Factor Complement C4 Miscellaneous Test Crossmatch 12/09/16 12/09/16 12/09/16 12:29 17:52 23:10 WBC RBC Hgb Hct MCV MCH MCHC RDW Plt Count Lymph % (Auto) [place] % (Auto) Lymph # [place] # Baso # Seg Neutrophils % Seg Neuts % (Manual) Lymphocytes % (Manual) Monocytes % (Manual) Eosinophils % (Manual) Basophils % (Manual) Nucleated RBC % Seg Neutrophils # Seg Neutrophils # Man Lymphocytes # (Manual) Monocytes # (Manual) Eosinophils # (Manual) Basophils # (Manual) PT INR Fibrinogen dRVVT Confirm Interp Factor V Activity POC ABG pH POC ABG pCO2 POC ABG pO2 ABG pO2 ABG HCO3 ABG Base Excess ABG Hemoglobin Oxyhemoglobin Sodium Potassium Chloride Carbon Dioxide BUN Creatinine Glucose POC Glucose 139 H 140 H 129 H Lactic Acid Calcium Ionized Calcium Phosphorus Magnesium Direct Bilirubin AST ALT Alkaline Phosphatase Lactate Dehydrogenase Troponin T C-Reactive Protein Total Protein Albumin Prealbumin Triglycerides Cholesterol LDL Cholesterol Direct HDL Cholesterol PTH Intact Urine pH Urine WBC (Auto) Urine Creatinine Urine Total Protein Fluid Total Protein Vancomycin Trough Rheumatoid Factor Complement C4 Miscellaneous Test Crossmatch 12/10/16 12/10/16 12/10/16 05:00 05:00 06:54 WBC 15.7 H RBC 2.87 L Hgb 8.2 L Hct 24.4 L MCV MCH MCHC RDW 17.2 H Plt Count Lymph % (Auto) [place] % (Auto) 8.3 H Lymph # [place]ick # 1.3 H Baso # Seg Neutrophils % 72.8 H Seg Neuts % (Manual) Lymphocytes % (Manual) Monocytes % (Manual) Eosinophils % (Manual) Basophils % (Manual) Nucleated RBC % Seg Neutrophils # 11.4 H Seg Neutrophils # Man Lymphocytes # (Manual) Monocytes # (Manual) Eosinophils # (Manual) Basophils # (Manual) PT INR Fibrinogen dRVVT Confirm Interp Factor V Activity POC ABG pH POC ABG pCO2 POC ABG pO2 ABG pO2 ABG HCO3 ABG Base Excess ABG Hemoglobin Oxyhemoglobin Sodium Potassium Chloride Carbon Dioxide BUN 64 H Creatinine 1.4 H Glucose 134 H POC Glucose 154 H Lactic Acid Calcium Ionized Calcium Phosphorus Magnesium Direct Bilirubin AST ALT Alkaline Phosphatase Lactate Dehydrogenase Troponin T C-Reactive Protein Total Protein Albumin Prealbumin Triglycerides Cholesterol LDL Cholesterol Direct HDL Cholesterol PTH Intact Urine pH Urine WBC (Auto) Urine Creatinine Urine Total Protein Fluid Total Protein Vancomycin Trough Rheumatoid Factor Complement C4 Miscellaneous Test Crossmatch 12/10/16 12/10/16 12/10/16 11:58 17:29 23:52 WBC RBC Hgb Hct MCV MCH MCHC RDW Plt Count Lymph % (Auto) [place] % (Auto) Lymph # [place]orm[place] # Baso # Seg Neutrophils % Seg Neuts % (Manual) Lymphocytes % (Manual) Monocytes % (Manual) Eosinophils % (Manual) Basophils % (Manual) Nucleated RBC % Seg Neutrophils # Seg Neutrophils # Man Lymphocytes # (Manual) Monocytes # (Manual) Eosinophils # (Manual) Basophils # (Manual) PT INR Fibrinogen dRVVT Confirm Interp Factor V Activity POC ABG pH POC ABG pCO2 POC ABG pO2 ABG pO2 ABG HCO3 ABG Base Excess ABG Hemoglobin Oxyhemoglobin Sodium Potassium Chloride Carbon Dioxide BUN Creatinine Glucose POC Glucose 144 H 163 H 125 H Lactic Acid Calcium Ionized Calcium Phosphorus Magnesium Direct Bilirubin AST ALT Alkaline Phosphatase Lactate Dehydrogenase Troponin T C-Reactive Protein Total Protein Albumin Prealbumin Triglycerides Cholesterol LDL Cholesterol Direct HDL Cholesterol PTH Intact Urine pH Urine WBC (Auto) Urine Creatinine Urine Total Protein Fluid Total Protein Vancomycin Trough Rheumatoid Factor Complement C4 Miscellaneous Test Crossmatch 12/11/16 12/11/16 12/11/16 05:38 06:30 06:30 WBC 14.4 H RBC 2.76 L Hgb 7.7 L Hct 23.4 L MCV MCH MCHC RDW 17.2 H Plt Count Lymph % (Auto) [place] % (Auto) 8.8 H Lymph # [place] # 1.3 H Baso # Seg Neutrophils % 72.5 H Seg Neuts % (Manual) Lymphocytes % (Manual) Monocytes % (Manual) Eosinophils % (Manual) Basophils % (Manual) Nucleated RBC % Seg Neutrophils # 10.5 H Seg Neutrophils # Man Lymphocytes # (Manual) Monocytes # (Manual) Eosinophils # (Manual) Basophils # (Manual) PT INR Fibrinogen dRVVT Confirm Interp Factor V Activity POC ABG pH POC ABG pCO2 POC ABG pO2 ABG pO2 ABG HCO3 ABG Base Excess ABG Hemoglobin Oxyhemoglobin Sodium Potassium Chloride Carbon Dioxide BUN 43 H Creatinine Glucose 124 H POC Glucose 141 H Lactic Acid Calcium 8.3 L Ionized Calcium Phosphorus Magnesium 1.60 L Direct Bilirubin AST ALT Alkaline Phosphatase Lactate Dehydrogenase Troponin T C-Reactive Protein Total Protein Albumin Prealbumin Triglycerides Cholesterol LDL Cholesterol Direct HDL Cholesterol PTH Intact Urine pH Urine WBC (Auto) Urine Creatinine Urine Total Protein Fluid Total Protein Vancomycin Trough Rheumatoid Factor Complement C4 Miscellaneous Test Crossmatch 12/11/16 12/11/16 12/11/16 11:15 17:59 23:48 WBC RBC Hgb Hct MCV MCH MCHC RDW Plt Count Lymph % (Auto) [place] % (Auto) Lymph # [place]orm[place] # Baso # Seg Neutrophils % Seg Neuts % (Manual) Lymphocytes % (Manual) Monocytes % (Manual) Eosinophils % (Manual) Basophils % (Manual) Nucleated RBC % Seg Neutrophils # Seg Neutrophils # Man Lymphocytes # (Manual) Monocytes # (Manual) Eosinophils # (Manual) Basophils # (Manual) PT INR Fibrinogen dRVVT Confirm Interp Factor V Activity POC ABG pH POC ABG pCO2 POC ABG pO2 ABG pO2 ABG HCO3 ABG Base Excess ABG Hemoglobin Oxyhemoglobin Sodium Potassium Chloride Carbon Dioxide BUN Creatinine Glucose POC Glucose 188 H 106 H 119 H Lactic Acid Calcium Ionized Calcium Phosphorus Magnesium Direct Bilirubin AST ALT Alkaline Phosphatase Lactate Dehydrogenase Troponin T C-Reactive Protein Total Protein Albumin Prealbumin Triglycerides Cholesterol LDL Cholesterol Direct HDL Cholesterol PTH Intact Urine pH Urine WBC (Auto) Urine Creatinine Urine Total Protein Fluid Total Protein Vancomycin Trough Rheumatoid Factor Complement C4 Miscellaneous Test Crossmatch 12/12/16 12/12/16 12/12/16 05:00 06:01 12:20 WBC 16.7 H RBC 2.87 L Hgb 8.0 L Hct 24.2 L MCV MCH MCHC RDW 17.6 H Plt Count Lymph % (Auto) [place] % (Auto) Lymph # [place] # 1.2 H Baso # Seg Neutrophils % 75.3 H Seg Neuts % (Manual) Lymphocytes % (Manual) Monocytes % (Manual) Eosinophils % (Manual) Basophils % (Manual) Nucleated RBC % Seg Neutrophils # 12.6 H Seg Neutrophils # Man Lymphocytes # (Manual) Monocytes # (Manual) Eosinophils # (Manual) Basophils # (Manual) PT INR Fibrinogen dRVVT Confirm Interp Factor V Activity POC ABG pH POC ABG pCO2 POC ABG pO2 ABG pO2 ABG HCO3 ABG Base Excess ABG Hemoglobin Oxyhemoglobin Sodium Potassium Chloride Carbon Dioxide BUN Creatinine Glucose POC Glucose 134 H 149 H Lactic Acid Calcium Ionized Calcium Phosphorus Magnesium Direct Bilirubin AST ALT Alkaline Phosphatase Lactate Dehydrogenase Troponin T C-Reactive Protein Total Protein Albumin Prealbumin Triglycerides Cholesterol LDL Cholesterol Direct HDL Cholesterol PTH Intact Urine pH Urine WBC (Auto) Urine Creatinine Urine Total Protein Fluid Total Protein Vancomycin Trough Rheumatoid Factor Complement C4 Miscellaneous Test Crossmatch 12/12/16 12/12/16 12/12/16 17:38 23:01 Unknown WBC RBC Hgb Hct MCV MCH MCHC RDW Plt Count Lymph % (Auto) [place] % (Auto) Lymph # [place]orm[place] # Baso # Seg Neutrophils % Seg Neuts % (Manual) Lymphocytes % (Manual) Monocytes % (Manual) Eosinophils % (Manual) Basophils % (Manual) Nucleated RBC % Seg Neutrophils # Seg Neutrophils # Man Lymphocytes # (Manual) Monocytes # (Manual) Eosinophils # (Manual) Basophils # (Manual) PT INR Fibrinogen dRVVT Confirm Interp Factor V Activity POC ABG pH POC ABG pCO2 POC ABG pO2 ABG pO2 ABG HCO3 ABG Base Excess ABG Hemoglobin Oxyhemoglobin Sodium Potassium Chloride Carbon Dioxide BUN 60 H Creatinine 1.3 H Glucose 126 H POC Glucose 127 H 144 H Lactic Acid Calcium Ionized Calcium Phosphorus Magnesium Direct Bilirubin AST ALT Alkaline Phosphatase Lactate Dehydrogenase Troponin T C-Reactive Protein Total Protein Albumin Prealbumin Triglycerides Cholesterol LDL Cholesterol Direct HDL Cholesterol PTH Intact Urine pH Urine WBC (Auto) Urine Creatinine Urine Total Protein Fluid Total Protein Vancomycin Trough Rheumatoid Factor Complement C4 Miscellaneous Test Crossmatch 12/13/16 12/13/16 12/13/16 04:00 04:00 05:19 WBC 18.7 H RBC 2.89 L Hgb 8.3 L Hct 24.6 L MCV MCH MCHC RDW 17.5 H Plt Count Lymph % (Auto) [place] % (Auto) Lymph # [place] # 1.3 H Baso # Seg Neutrophils % 71.5 H Seg Neuts % (Manual) Lymphocytes % (Manual) Monocytes % (Manual) Eosinophils % (Manual) Basophils % (Manual) Nucleated RBC % Seg Neutrophils # 13.4 H Seg Neutrophils # Man Lymphocytes # (Manual) Monocytes # (Manual) Eosinophils # (Manual) Basophils # (Manual) PT INR Fibrinogen dRVVT Confirm Interp Factor V Activity POC ABG pH POC ABG pCO2 POC ABG pO2 ABG pO2 ABG HCO3 ABG Base Excess ABG Hemoglobin Oxyhemoglobin Sodium Potassium Chloride Carbon Dioxide BUN 73 H Creatinine 1.5 H Glucose 141 H POC Glucose 171 H Lactic Acid Calcium Ionized Calcium Phosphorus Magnesium Direct Bilirubin AST ALT Alkaline Phosphatase Lactate Dehydrogenase Troponin T C-Reactive Protein Total Protein Albumin Prealbumin Triglycerides Cholesterol LDL Cholesterol Direct HDL Cholesterol PTH Intact Urine pH Urine WBC (Auto) Urine Creatinine Urine Total Protein Fluid Total Protein Vancomycin Trough Rheumatoid Factor Complement C4 Miscellaneous Test Crossmatch 12/13/16 12/13/16 12/14/16 12:28 16:48 00:01 WBC RBC Hgb Hct MCV MCH MCHC RDW Plt Count Lymph % (Auto) [place] % (Auto) Lymph # [place] # Baso # Seg Neutrophils % Seg Neuts % (Manual) Lymphocytes % (Manual) Monocytes % (Manual) Eosinophils % (Manual) Basophils % (Manual) Nucleated RBC % Seg Neutrophils # Seg Neutrophils # Man Lymphocytes # (Manual) Monocytes # (Manual) Eosinophils # (Manual) Basophils # (Manual) PT INR Fibrinogen dRVVT Confirm Interp Factor V Activity POC ABG pH POC ABG pCO2 POC ABG pO2 ABG pO2 ABG HCO3 ABG Base Excess ABG Hemoglobin Oxyhemoglobin Sodium Potassium Chloride Carbon Dioxide BUN Creatinine Glucose POC Glucose 206 H 173 H 139 H Lactic Acid Calcium Ionized Calcium Phosphorus Magnesium Direct Bilirubin AST ALT Alkaline Phosphatase Lactate Dehydrogenase Troponin T C-Reactive Protein Total Protein Albumin Prealbumin Triglycerides Cholesterol LDL Cholesterol Direct HDL Cholesterol PTH Intact Urine pH Urine WBC (Auto) Urine Creatinine Urine Total Protein Fluid Total Protein Vancomycin Trough Rheumatoid Factor Complement C4 Miscellaneous Test Crossmatch 12/14/16 12/14/16 12/14/16 05:16 06:10 11:17 WBC RBC Hgb Hct MCV MCH MCHC RDW Plt Count Lymph % (Auto) [place] % (Auto) Lymph # [place] # Baso # Seg Neutrophils % Seg Neuts % (Manual) Lymphocytes % (Manual) Monocytes % (Manual) Eosinophils % (Manual) Basophils % (Manual) Nucleated RBC % Seg Neutrophils # Seg Neutrophils # Man Lymphocytes # (Manual) Monocytes # (Manual) Eosinophils # (Manual) Basophils # (Manual) PT INR Fibrinogen dRVVT Confirm Interp Factor V Activity POC ABG pH POC ABG pCO2 POC ABG pO2 ABG pO2 ABG HCO3 ABG Base Excess ABG Hemoglobin Oxyhemoglobin Sodium Potassium Chloride Carbon Dioxide BUN 57 H Creatinine 1.4 H Glucose 135 H POC Glucose 158 H 137 H Lactic Acid Calcium Ionized Calcium Phosphorus Magnesium Direct Bilirubin AST ALT Alkaline Phosphatase Lactate Dehydrogenase Troponin T C-Reactive Protein Total Protein Albumin Prealbumin Triglycerides Cholesterol LDL Cholesterol Direct HDL Cholesterol PTH Intact Urine pH Urine WBC (Auto) Urine Creatinine Urine Total Protein Fluid Total Protein Vancomycin Trough Rheumatoid Factor Complement C4 Miscellaneous Test Crossmatch 12/14/16 12/14/16 12/15/16 17:52 23:27 04:00 WBC RBC Hgb Hct MCV MCH MCHC RDW Plt Count Lymph % (Auto) [place] % (Auto) Lymph # [place] # Baso # Seg Neutrophils % Seg Neuts % (Manual) Lymphocytes % (Manual) Monocytes % (Manual) Eosinophils % (Manual) Basophils % (Manual) Nucleated RBC % Seg Neutrophils # Seg Neutrophils # Man Lymphocytes # (Manual) Monocytes # (Manual) Eosinophils # (Manual) Basophils # (Manual) PT INR Fibrinogen dRVVT Confirm Interp Factor V Activity POC ABG pH POC ABG pCO2 POC ABG pO2 ABG pO2 ABG HCO3 ABG Base Excess ABG Hemoglobin Oxyhemoglobin Sodium Potassium Chloride 97.9 L Carbon Dioxide BUN 75 H Creatinine 1.6 H Glucose 122 H POC Glucose 149 H 163 H Lactic Acid Calcium Ionized Calcium Phosphorus 5.20 H Magnesium Direct Bilirubin AST ALT Alkaline Phosphatase Lactate Dehydrogenase Troponin T C-Reactive Protein Total Protein Albumin Prealbumin Triglycerides Cholesterol LDL Cholesterol Direct HDL Cholesterol PTH Intact Urine pH Urine WBC (Auto) Urine Creatinine Urine Total Protein Fluid Total Protein Vancomycin Trough Rheumatoid Factor Complement C4 Miscellaneous Test Crossmatch 12/15/16 12/15/16 12/15/16 05:50 11:24 17:01 WBC RBC Hgb Hct MCV MCH MCHC RDW Plt Count Lymph % (Auto) [place] % (Auto) Lymph # [place] # Baso # Seg Neutrophils % Seg Neuts % (Manual) Lymphocytes % (Manual) Monocytes % (Manual) Eosinophils % (Manual) Basophils % (Manual) Nucleated RBC % Seg Neutrophils # Seg Neutrophils # Man Lymphocytes # (Manual) Monocytes # (Manual) Eosinophils # (Manual) Basophils # (Manual) PT INR Fibrinogen dRVVT Confirm Interp Factor V Activity POC ABG pH POC ABG pCO2 POC ABG pO2 ABG pO2 ABG HCO3 ABG Base Excess ABG Hemoglobin Oxyhemoglobin Sodium Potassium Chloride Carbon Dioxide BUN Creatinine Glucose POC Glucose 150 H 146 H 167 H Lactic Acid Calcium Ionized Calcium Phosphorus Magnesium Direct Bilirubin AST ALT Alkaline Phosphatase Lactate Dehydrogenase Troponin T C-Reactive Protein Total Protein Albumin Prealbumin Triglycerides Cholesterol LDL Cholesterol Direct HDL Cholesterol PTH Intact Urine pH Urine WBC (Auto) Urine Creatinine Urine Total Protein Fluid Total Protein Vancomycin Trough Rheumatoid Factor Complement C4 Miscellaneous Test Crossmatch 12/15/16 12/16/16 12/16/16 23:34 05:25 11:24 WBC RBC Hgb Hct MCV MCH MCHC RDW Plt Count Lymph % (Auto) [place] % (Auto) Lymph # [place] # Baso # Seg Neutrophils % Seg Neuts % (Manual) Lymphocytes % (Manual) Monocytes % (Manual) Eosinophils % (Manual) Basophils % (Manual) Nucleated RBC % Seg Neutrophils # Seg Neutrophils # Man Lymphocytes # (Manual) Monocytes # (Manual) Eosinophils # (Manual) Basophils # (Manual) PT INR Fibrinogen dRVVT Confirm Interp Factor V Activity POC ABG pH POC ABG pCO2 POC ABG pO2 ABG pO2 ABG HCO3 ABG Base Excess ABG Hemoglobin Oxyhemoglobin Sodium Potassium Chloride Carbon Dioxide BUN Creatinine Glucose POC Glucose 127 H 139 H 165 H Lactic Acid Calcium Ionized Calcium Phosphorus Magnesium Direct Bilirubin AST ALT Alkaline Phosphatase Lactate Dehydrogenase Troponin T C-Reactive Protein Total Protein Albumin Prealbumin Triglycerides Cholesterol LDL Cholesterol Direct HDL Cholesterol PTH Intact Urine pH Urine WBC (Auto) Urine Creatinine Urine Total Protein Fluid Total Protein Vancomycin Trough Rheumatoid Factor Complement C4 Miscellaneous Test Crossmatch 12/16/16 12/16/16 12/16/16 15:30 16:25 17:31 WBC 17.8 H RBC 2.38 L Hgb 6.4 L Hct 20.3 L MCV MCH 27 L MCHC RDW 17.4 H Plt Count Lymph % (Auto) [place] % (Auto) Lymph # [place] # Baso # Seg Neutrophils % Seg Neuts % (Manual) Lymphocytes % (Manual) Monocytes % (Manual) 10.0 H Eosinophils % (Manual) Basophils % (Manual) Nucleated RBC % Seg Neutrophils # Seg Neutrophils # Man 8.5 H Lymphocytes # (Manual) Monocytes # (Manual) 1.8 H Eosinophils # (Manual) Basophils # (Manual) PT INR Fibrinogen dRVVT Confirm Interp Factor V Activity POC ABG pH POC ABG pCO2 POC ABG pO2 ABG pO2 ABG HCO3 ABG Base Excess ABG Hemoglobin Oxyhemoglobin Sodium Potassium Chloride Carbon Dioxide BUN Creatinine Glucose POC Glucose 176 H Lactic Acid Calcium Ionized Calcium Phosphorus Magnesium Direct Bilirubin AST ALT Alkaline Phosphatase Lactate Dehydrogenase Troponin T C-Reactive Protein Total Protein Albumin Prealbumin Triglycerides Cholesterol LDL Cholesterol Direct HDL Cholesterol PTH Intact Urine pH Urine WBC (Auto) Urine Creatinine Urine Total Protein Fluid Total Protein Vancomycin Trough Rheumatoid Factor Complement C4 Miscellaneous Test Crossmatch See Detail 12/17/16 12/17/16 12/17/16 00:14 04:00 05:00 WBC 20.0 H RBC 2.99 L Hgb 8.5 L Hct 25.7 L MCV MCH MCHC RDW 17.2 H Plt Count Lymph % (Auto) [place] % (Auto) Lymph # [place] # Baso # Seg Neutrophils % Seg Neuts % (Manual) Lymphocytes % (Manual) Monocytes % (Manual) Eosinophils % (Manual) Basophils % (Manual) Nucleated RBC % Seg Neutrophils # Seg Neutrophils # Man Lymphocytes # (Manual) Monocytes # (Manual) Eosinophils # (Manual) Basophils # (Manual) PT INR Fibrinogen dRVVT Confirm Interp Factor V Activity POC ABG pH POC ABG pCO2 POC ABG pO2 ABG pO2 ABG HCO3 ABG Base Excess ABG Hemoglobin Oxyhemoglobin Sodium Potassium Chloride 97.7 L Carbon Dioxide BUN 73 H Creatinine 1.7 H Glucose 136 H POC Glucose 148 H Lactic Acid Calcium Ionized Calcium Phosphorus 2.20 L Magnesium 2.70 H Direct Bilirubin AST ALT Alkaline Phosphatase Lactate Dehydrogenase Troponin T C-Reactive Protein Total Protein Albumin Prealbumin Triglycerides Cholesterol LDL Cholesterol Direct HDL Cholesterol PTH Intact Urine pH Urine WBC (Auto) Urine Creatinine Urine Total Protein Fluid Total Protein Vancomycin Trough Rheumatoid Factor Complement C4 Miscellaneous Test Crossmatch 12/17/16 12/17/16 12/17/16 05:39 12:50 16:32 WBC RBC Hgb Hct MCV MCH MCHC RDW Plt Count Lymph % (Auto) [place] % (Auto) Lymph # [place] # Baso # Seg Neutrophils % Seg Neuts % (Manual) Lymphocytes % (Manual) Monocytes % (Manual) Eosinophils % (Manual) Basophils % (Manual) Nucleated RBC % Seg Neutrophils # Seg Neutrophils # Man Lymphocytes # (Manual) Monocytes # (Manual) Eosinophils # (Manual) Basophils # (Manual) PT INR Fibrinogen dRVVT Confirm Interp Factor V Activity POC ABG pH POC ABG pCO2 POC ABG pO2 ABG pO2 ABG HCO3 ABG Base Excess ABG Hemoglobin Oxyhemoglobin Sodium Potassium Chloride Carbon Dioxide BUN Creatinine Glucose POC Glucose 162 H 146 H 169 H Lactic Acid Calcium Ionized Calcium Phosphorus Magnesium Direct Bilirubin AST ALT Alkaline Phosphatase Lactate Dehydrogenase Troponin T C-Reactive Protein Total Protein Albumin Prealbumin Triglycerides Cholesterol LDL Cholesterol Direct HDL Cholesterol PTH Intact Urine pH Urine WBC (Auto) Urine Creatinine Urine Total Protein Fluid Total Protein Vancomycin Trough Rheumatoid Factor Complement C4 Miscellaneous Test Crossmatch 12/17/16 12/18/16 12/18/16 23:57 05:00 05:32 WBC RBC Hgb Hct MCV MCH MCHC RDW Plt Count Lymph % (Auto) [place] % (Auto) Lymph # [place] # Baso # Seg Neutrophils % Seg Neuts % (Manual) Lymphocytes % (Manual) Monocytes % (Manual) Eosinophils % (Manual) Basophils % (Manual) Nucleated RBC % Seg Neutrophils # Seg Neutrophils # Man Lymphocytes # (Manual) Monocytes # (Manual) Eosinophils # (Manual) Basophils # (Manual) PT INR Fibrinogen dRVVT Confirm Interp Factor V Activity POC ABG pH POC ABG pCO2 POC ABG pO2 ABG pO2 ABG HCO3 ABG Base Excess ABG Hemoglobin Oxyhemoglobin Sodium Potassium Chloride 97.0 L Carbon Dioxide BUN 63 H Creatinine 1.4 H Glucose 174 H POC Glucose 145 H 201 H Lactic Acid Calcium Ionized Calcium Phosphorus 1.70 L D Magnesium Direct Bilirubin AST ALT Alkaline Phosphatase 257 H Lactate Dehydrogenase Troponin T C-Reactive Protein Total Protein 5.9 L Albumin 1.8 L Prealbumin Triglycerides Cholesterol LDL Cholesterol Direct HDL Cholesterol PTH Intact Urine pH Urine WBC (Auto) Urine Creatinine Urine Total Protein Fluid Total Protein Vancomycin Trough Rheumatoid Factor Complement C4 Miscellaneous Test Crossmatch 12/18/16 12/18/16 12/18/16 11:43 16:52 23:52 WBC RBC Hgb Hct MCV MCH MCHC RDW Plt Count Lymph % (Auto) [place] % (Auto) Lymph # [place] # Baso # Seg Neutrophils % Seg Neuts % (Manual) Lymphocytes % (Manual) Monocytes % (Manual) Eosinophils % (Manual) Basophils % (Manual) Nucleated RBC % Seg Neutrophils # Seg Neutrophils # Man Lymphocytes # (Manual) Monocytes # (Manual) Eosinophils # (Manual) Basophils # (Manual) PT INR Fibrinogen dRVVT Confirm Interp Factor V Activity POC ABG pH POC ABG pCO2 POC ABG pO2 ABG pO2 ABG HCO3 ABG Base Excess ABG Hemoglobin Oxyhemoglobin Sodium Potassium Chloride Carbon Dioxide BUN Creatinine Glucose POC Glucose 177 H 110 H 162 H Lactic Acid Calcium Ionized Calcium Phosphorus Magnesium Direct Bilirubin AST ALT Alkaline Phosphatase Lactate Dehydrogenase Troponin T C-Reactive Protein Total Protein Albumin Prealbumin Triglycerides Cholesterol LDL Cholesterol Direct HDL Cholesterol PTH Intact Urine pH Urine WBC (Auto) Urine Creatinine Urine Total Protein Fluid Total Protein Vancomycin Trough Rheumatoid Factor Complement C4 Miscellaneous Test Crossmatch 12/19/16 12/19/1612/19/17 05:02 05:24 09:30 WBC 20.1 H RBC 2.73 L Hgb 7.6 L Hct 23.6 L MCV MCH MCHC RDW 17.6 H Plt Count Lymph % (Auto) [place] % (Auto) Lymph # [place] # Baso # Seg Neutrophils % Seg Neuts % (Manual) Lymphocytes % (Manual) 13.0 L Monocytes % (Manual) Eosinophils % (Manual) Basophils % (Manual) Nucleated RBC % 1.0 H Seg Neutrophils # Seg Neutrophils # Man 12.9 H Lymphocytes # (Manual) Monocytes # (Manual) 1.4 H Eosinophils # (Manual) Basophils # (Manual) 0.2 H PT INR Fibrinogen dRVVT Confirm Interp Factor V Activity POC ABG pH POC ABG pCO2 POC ABG pO2 ABG pO2 ABG HCO3 ABG Base Excess ABG Hemoglobin Oxyhemoglobin Sodium Potassium Chloride 97.8 L Carbon Dioxide BUN 84 H Creatinine 1.6 H Glucose 133 H POC Glucose 134 H Lactic Acid Calcium Ionized Calcium Phosphorus Magnesium Direct Bilirubin AST ALT Alkaline Phosphatase Lactate Dehydrogenase Troponin T C-Reactive Protein Total Protein Albumin Prealbumin Triglycerides Cholesterol LDL Cholesterol Direct HDL Cholesterol PTH Intact Urine pH Urine WBC (Auto) Urine Creatinine Urine Total Protein Fluid Total Protein Vancomycin Trough Rheumatoid Factor Complement C4 Miscellaneous Test Crossmatch 12/19/16 12/19/16 12/19/16 09:36 11:12 18:29 WBC RBC Hgb Hct MCV MCH MCHC RDW Plt Count Lymph % (Auto) [place] % (Auto) Lymph # [place] # Baso # Seg Neutrophils % Seg Neuts % (Manual) Lymphocytes % (Manual) Monocytes % (Manual) Eosinophils % (Manual) Basophils % (Manual) Nucleated RBC % Seg Neutrophils # Seg Neutrophils # Man Lymphocytes # (Manual) Monocytes # (Manual) Eosinophils # (Manual) Basophils # (Manual) PT INR Fibrinogen dRVVT Confirm Interp Factor V Activity POC ABG pH 7.503 H POC ABG pCO2 30.1 L POC ABG pO2 ABG pO2 ABG HCO3 ABG Base Excess ABG Hemoglobin Oxyhemoglobin Sodium Potassium Chloride Carbon Dioxide BUN Creatinine Glucose POC Glucose 138 H 156 H Lactic Acid Calcium Ionized Calcium Phosphorus Magnesium Direct Bilirubin AST ALT Alkaline Phosphatase Lactate Dehydrogenase Troponin T C-Reactive Protein Total Protein Albumin Prealbumin Triglycerides Cholesterol LDL Cholesterol Direct HDL Cholesterol PTH Intact Urine pH Urine WBC (Auto) Urine Creatinine Urine Total Protein Fluid Total Protein Vancomycin Trough Rheumatoid Factor Complement C4 Miscellaneous Test Crossmatch 12/20/16 12/20/16 12/20/16 00:03 06:17 07:07 WBC RBC Hgb Hct MCV MCH MCHC RDW Plt Count Lymph % (Auto) [place] % (Auto) Lymph # [place] # Baso # Seg Neutrophils % Seg Neuts % (Manual) Lymphocytes % (Manual) Monocytes % (Manual) Eosinophils % (Manual) Basophils % (Manual) Nucleated RBC % Seg Neutrophils # Seg Neutrophils # Man Lymphocytes # (Manual) Monocytes # (Manual) Eosinophils # (Manual) Basophils # (Manual) PT INR Fibrinogen dRVVT Confirm Interp Factor V Activity POC ABG pH POC ABG pCO2 POC ABG pO2 ABG pO2 ABG HCO3 ABG Base Excess ABG Hemoglobin Oxyhemoglobin Sodium Potassium Chloride 97.1 L Carbon Dioxide 20 L BUN 97 H Creatinine 1.8 H Glucose 153 H POC Glucose 152 H 175 H Lactic Acid Calcium Ionized Calcium Phosphorus Magnesium Direct Bilirubin AST ALT Alkaline Phosphatase Lactate Dehydrogenase Troponin T C-Reactive Protein Total Protein Albumin Prealbumin Triglycerides Cholesterol LDL Cholesterol Direct HDL Cholesterol PTH Intact Urine pH Urine WBC (Auto) Urine Creatinine Urine Total Protein Fluid Total Protein Vancomycin Trough Rheumatoid Factor Complement C4 Miscellaneous Test Crossmatch 12/20/16 12/20/16 12/20/16 12:00 17:42 23:53 WBC RBC Hgb Hct MCV MCH MCHC RDW Plt Count Lymph % (Auto) [place] % (Auto) Lymph # [place] # Baso # Seg Neutrophils % Seg Neuts % (Manual) Lymphocytes % (Manual) Monocytes % (Manual) Eosinophils % (Manual) Basophils % (Manual) Nucleated RBC % Seg Neutrophils # Seg Neutrophils # Man Lymphocytes # (Manual) Monocytes # (Manual) Eosinophils # (Manual) Basophils # (Manual) PT INR Fibrinogen dRVVT Confirm Interp Factor V Activity POC ABG pH POC ABG pCO2 POC ABG pO2 ABG pO2 ABG HCO3 ABG Base Excess ABG Hemoglobin Oxyhemoglobin Sodium Potassium Chloride Carbon Dioxide BUN Creatinine Glucose POC Glucose 141 H 156 H 132 H Lactic Acid Calcium Ionized Calcium Phosphorus Magnesium Direct Bilirubin AST ALT Alkaline Phosphatase Lactate Dehydrogenase Troponin T C-Reactive Protein Total Protein Albumin Prealbumin Triglycerides Cholesterol LDL Cholesterol Direct HDL Cholesterol PTH Intact Urine pH Urine WBC (Auto) Urine Creatinine Urine Total Protein Fluid Total Protein Vancomycin Trough Rheumatoid Factor Complement C4 Miscellaneous Test Crossmatch 12/21/16 12/21/16 12/21/16 05:49 08:50 12:19 WBC RBC Hgb Hct MCV MCH MCHC RDW Plt Count Lymph % (Auto) [place] % (Auto) Lymph # [place] # Baso # Seg Neutrophils % Seg Neuts % (Manual) Lymphocytes % (Manual) Monocytes % (Manual) Eosinophils % (Manual) Basophils % (Manual) Nucleated RBC % Seg Neutrophils # Seg Neutrophils # Man Lymphocytes # (Manual) Monocytes # (Manual) Eosinophils # (Manual) Basophils # (Manual) PT INR Fibrinogen dRVVT Confirm Interp Factor V Activity POC ABG pH POC ABG pCO2 POC ABG pO2 ABG pO2 ABG HCO3 ABG Base Excess ABG Hemoglobin Oxyhemoglobin Sodium Potassium 5.2 H D Chloride Carbon Dioxide BUN 63 H Creatinine Glucose 122 H POC Glucose 132 H 136 H Lactic Acid Calcium 8.3 L Ionized Calcium Phosphorus Magnesium Direct Bilirubin AST ALT Alkaline Phosphatase Lactate Dehydrogenase Troponin T C-Reactive Protein Total Protein Albumin Prealbumin Triglycerides Cholesterol LDL Cholesterol Direct HDL Cholesterol PTH Intact Urine pH Urine WBC (Auto) Urine Creatinine Urine Total Protein Fluid Total Protein Vancomycin Trough Rheumatoid Factor Complement C4 Miscellaneous Test Crossmatch 12/21/16 12/21/16 12/22/16 17:22 23:58 05:49 WBC RBC Hgb Hct MCV MCH MCHC RDW Plt Count Lymph % (Auto) [place] % (Auto) Lymph # [place] # Baso # Seg Neutrophils % Seg Neuts % (Manual) Lymphocytes % (Manual) Monocytes % (Manual) Eosinophils % (Manual) Basophils % (Manual) Nucleated RBC % Seg Neutrophils # Seg Neutrophils # Man Lymphocytes # (Manual) Monocytes # (Manual) Eosinophils # (Manual) Basophils # (Manual) PT INR Fibrinogen dRVVT Confirm Interp Factor V Activity POC ABG pH POC ABG pCO2 POC ABG pO2 ABG pO2 ABG HCO3 ABG Base Excess ABG Hemoglobin Oxyhemoglobin Sodium Potassium Chloride Carbon Dioxide BUN Creatinine Glucose POC Glucose 135 H 149 H 140 H Lactic Acid Calcium Ionized Calcium Phosphorus Magnesium Direct Bilirubin AST ALT Alkaline Phosphatase Lactate Dehydrogenase Troponin T C-Reactive Protein Total Protein Albumin Prealbumin Triglycerides Cholesterol LDL Cholesterol Direct HDL Cholesterol PTH Intact Urine pH Urine WBC (Auto) Urine Creatinine Urine Total Protein Fluid Total Protein Vancomycin Trough Rheumatoid Factor Complement C4 Miscellaneous Test Crossmatch 12/22/16 12/22/16 12/22/16 06:10 11:17 17:31 WBC RBC Hgb Hct MCV MCH MCHC RDW Plt Count Lymph % (Auto) [place] % (Auto) Lymph # [place] # Baso # Seg Neutrophils % Seg Neuts % (Manual) Lymphocytes % (Manual) Monocytes % (Manual) Eosinophils % (Manual) Basophils % (Manual) Nucleated RBC % Seg Neutrophils # Seg Neutrophils # Man Lymphocytes # (Manual) Monocytes # (Manual) Eosinophils # (Manual) Basophils # (Manual) PT INR Fibrinogen dRVVT Confirm Interp Factor V Activity POC ABG pH POC ABG pCO2 POC ABG pO2 ABG pO2 ABG HCO3 ABG Base Excess ABG Hemoglobin Oxyhemoglobin Sodium Potassium Chloride Carbon Dioxide BUN 76 H Creatinine 1.5 H Glucose 241 H POC Glucose 193 H 148 H Lactic Acid Calcium Ionized Calcium Phosphorus Magnesium Direct Bilirubin AST ALT Alkaline Phosphatase Lactate Dehydrogenase Troponin T C-Reactive Protein Total Protein Albumin Prealbumin Triglycerides Cholesterol LDL Cholesterol Direct HDL Cholesterol PTH Intact Urine pH Urine WBC (Auto) Urine Creatinine Urine Total Protein Fluid Total Protein Vancomycin Trough Rheumatoid Factor Complement C4 Miscellaneous Test Crossmatch 12/22/16 12/23/16 12/23/16 23:58 05:00 05:26 WBC RBC Hgb Hct MCV MCH MCHC RDW Plt Count Lymph % (Auto) [place] % (Auto) Lymph # [place] # Baso # Seg Neutrophils % Seg Neuts % (Manual) Lymphocytes % (Manual) Monocytes % (Manual) Eosinophils % (Manual) Basophils % (Manual) Nucleated RBC % Seg Neutrophils # Seg Neutrophils # Man Lymphocytes # (Manual) Monocytes # (Manual) Eosinophils # (Manual) Basophils # (Manual) PT INR Fibrinogen dRVVT Confirm Interp Factor V Activity POC ABG pH POC ABG pCO2 POC ABG pO2 ABG pO2 ABG HCO3 ABG Base Excess ABG Hemoglobin Oxyhemoglobin Sodium Potassium Chloride Carbon Dioxide BUN 49 H Creatinine Glucose 143 H POC Glucose 165 H 154 H Lactic Acid Calcium 8.2 L Ionized Calcium Phosphorus Magnesium 1.60 L Direct Bilirubin AST ALT Alkaline Phosphatase Lactate Dehydrogenase Troponin T C-Reactive Protein Total Protein Albumin Prealbumin Triglycerides Cholesterol LDL Cholesterol Direct HDL Cholesterol PTH Intact Urine pH Urine WBC (Auto) Urine Creatinine Urine Total Protein Fluid Total Protein Vancomycin Trough Rheumatoid Factor Complement C4 Miscellaneous Test Crossmatch 12/23/16 12/23/16 12/24/16 12:35 17:01 00:01 WBC RBC Hgb Hct MCV MCH MCHC RDW Plt Count Lymph % (Auto) [place] % (Auto) Lymph # [place] # Baso # Seg Neutrophils % Seg Neuts % (Manual) Lymphocytes % (Manual) Monocytes % (Manual) Eosinophils % (Manual) Basophils % (Manual) Nucleated RBC % Seg Neutrophils # Seg Neutrophils # Man Lymphocytes # (Manual) Monocytes # (Manual) Eosinophils # (Manual) Basophils # (Manual) PT INR Fibrinogen dRVVT Confirm Interp Factor V Activity POC ABG pH POC ABG pCO2 POC ABG pO2 ABG pO2 ABG HCO3 ABG Base Excess ABG Hemoglobin Oxyhemoglobin Sodium Potassium Chloride Carbon Dioxide BUN Creatinine Glucose POC Glucose 164 H 149 H 135 H Lactic Acid Calcium Ionized Calcium Phosphorus Magnesium Direct Bilirubin AST ALT Alkaline Phosphatase Lactate Dehydrogenase Troponin T C-Reactive Protein Total Protein Albumin Prealbumin Triglycerides Cholesterol LDL Cholesterol Direct HDL Cholesterol PTH Intact Urine pH Urine WBC (Auto) Urine Creatinine Urine Total Protein Fluid Total Protein Vancomycin Trough Rheumatoid Factor Complement C4 Miscellaneous Test Crossmatch 12/24/16 12/24/16 12/24/16 05:41 07:01 11:38 WBC RBC Hgb Hct MCV MCH MCHC RDW Plt Count Lymph % (Auto) [place] % (Auto) Lymph # [place] # Baso # Seg Neutrophils % Seg Neuts % (Manual) Lymphocytes % (Manual) Monocytes % (Manual) Eosinophils % (Manual) Basophils % (Manual) Nucleated RBC % Seg Neutrophils # Seg Neutrophils # Man Lymphocytes # (Manual) Monocytes # (Manual) Eosinophils # (Manual) Basophils # (Manual) PT INR Fibrinogen dRVVT Confirm Interp Factor V Activity POC ABG pH POC ABG pCO2 POC ABG pO2 ABG pO2 ABG HCO3 ABG Base Excess ABG Hemoglobin Oxyhemoglobin Sodium Potassium Chloride Carbon Dioxide BUN 72 H Creatinine 1.3 H Glucose 130 H POC Glucose 132 H 156 H Lactic Acid Calcium 8.2 L Ionized Calcium Phosphorus Magnesium Direct Bilirubin AST ALT Alkaline Phosphatase Lactate Dehydrogenase Troponin T C-Reactive Protein Total Protein Albumin Prealbumin Triglycerides Cholesterol LDL Cholesterol Direct HDL Cholesterol PTH Intact Urine pH Urine WBC (Auto) Urine Creatinine Urine Total Protein Fluid Total Protein Vancomycin Trough Rheumatoid Factor Complement C4 Miscellaneous Test Crossmatch 12/24/16 12/25/16 12/25/16 17:53 00:23 05:45 WBC RBC Hgb Hct MCV MCH MCHC RDW Plt Count Lymph % (Auto) [place] % (Auto) Lymph # M[place]ormick # Baso # Seg Neutrophils % Seg Neuts % (Manual) Lymphocytes % (Manual) Monocytes % (Manual) Eosinophils % (Manual) Basophils % (Manual) Nucleated RBC % Seg Neutrophils # Seg Neutrophils # Man Lymphocytes # (Manual) Monocytes # (Manual) Eosinophils # (Manual) Basophils # (Manual) PT INR Fibrinogen dRVVT Confirm Interp Factor V Activity POC ABG pH POC ABG pCO2 POC ABG pO2 ABG pO2 ABG HCO3 ABG Base Excess ABG Hemoglobin Oxyhemoglobin Sodium 146 H Potassium Chloride Carbon Dioxide BUN 51 H Creatinine Glucose 109 H POC Glucose 169 H 117 H Lactic Acid Calcium Ionized Calcium Phosphorus Magnesium Direct Bilirubin AST ALT Alkaline Phosphatase Lactate Dehydrogenase Troponin T C-Reactive Protein Total Protein Albumin Prealbumin Triglycerides Cholesterol LDL Cholesterol Direct HDL Cholesterol PTH Intact Urine pH Urine WBC (Auto) Urine Creatinine Urine Total Protein Fluid Total Protein Vancomycin Trough Rheumatoid Factor Complement C4 Miscellaneous Test Crossmatch 12/25/16 12/25/16 12/25/16 06:43 11:29 17:14 WBC RBC Hgb Hct MCV MCH MCHC RDW Plt Count Lymph % (Auto) [place] % (Auto) Lymph # [place]ormick # Baso # Seg Neutrophils % Seg Neuts % (Manual) Lymphocytes % (Manual) Monocytes % (Manual) Eosinophils % (Manual) Basophils % (Manual) Nucleated RBC % Seg Neutrophils # Seg Neutrophils # Man Lymphocytes # (Manual) Monocytes # (Manual) Eosinophils # (Manual) Basophils # (Manual) PT INR Fibrinogen dRVVT Confirm Interp Factor V Activity POC ABG pH POC ABG pCO2 POC ABG pO2 ABG pO2 ABG HCO3 ABG Base Excess ABG Hemoglobin Oxyhemoglobin Sodium Potassium Chloride Carbon Dioxide BUN Creatinine Glucose POC Glucose 117 H 128 H 120 H Lactic Acid Calcium Ionized Calcium Phosphorus Magnesium Direct Bilirubin AST ALT Alkaline Phosphatase Lactate Dehydrogenase Troponin T C-Reactive Protein Total Protein Albumin Prealbumin Triglycerides Cholesterol LDL Cholesterol Direct HDL Cholesterol PTH Intact Urine pH Urine WBC (Auto) Urine Creatinine Urine Total Protein Fluid Total Protein Vancomycin Trough Rheumatoid Factor Complement C4 Miscellaneous Test Crossmatch 12/25/16 12/26/16 12/26/16 23:54 05:40 05:50 WBC 16.2 H RBC 2.32 L Hgb 6.2 L Hct 20.1 L MCV MCH 27 L MCHC RDW 18.6 H Plt Count Lymph % (Auto) [place] % (Auto) Lymph # [place]ick # Baso # Seg Neutrophils % Seg Neuts % (Manual) Lymphocytes % (Manual) Monocytes % (Manual) Eosinophils % (Manual) Basophils % (Manual) Nucleated RBC % Seg Neutrophils # Seg Neutrophils # Man Lymphocytes # (Manual) Monocytes # (Manual) Eosinophils # (Manual) Basophils # (Manual) PT INR Fibrinogen dRVVT Confirm Interp Factor V Activity POC ABG pH POC ABG pCO2 POC ABG pO2 ABG pO2 ABG HCO3 ABG Base Excess ABG Hemoglobin Oxyhemoglobin Sodium Potassium Chloride Carbon Dioxide BUN Creatinine Glucose POC Glucose 126 H 132 H Lactic Acid Calcium Ionized Calcium Phosphorus Magnesium Direct Bilirubin AST ALT Alkaline Phosphatase Lactate Dehydrogenase Troponin T C-Reactive Protein Total Protein Albumin Prealbumin Triglycerides Cholesterol LDL Cholesterol Direct HDL Cholesterol PTH Intact Urine pH Urine WBC (Auto) Urine Creatinine Urine Total Protein Fluid Total Protein Vancomycin Trough Rheumatoid Factor Complement C4 Miscellaneous Test Crossmatch 12/26/16 12/26/16 12/26/16 05:50 12:17 12:33 WBC RBC Hgb Hct MCV MCH MCHC RDW Plt Count Lymph % (Auto) [place] % (Auto) Lymph # [place] # Baso # Seg Neutrophils % Seg Neuts % (Manual) Lymphocytes % (Manual) Monocytes % (Manual) Eosinophils % (Manual) Basophils % (Manual) Nucleated RBC % Seg Neutrophils # Seg Neutrophils # Man Lymphocytes # (Manual) Monocytes # (Manual) Eosinophils # (Manual) Basophils # (Manual) PT INR Fibrinogen dRVVT Confirm Interp Factor V Activity POC ABG pH POC ABG pCO2 POC ABG pO2 ABG pO2 ABG HCO3 ABG Base Excess ABG Hemoglobin Oxyhemoglobin Sodium Potassium Chloride Carbon Dioxide BUN 73 H Creatinine 1.3 H Glucose 113 H POC Glucose 117 H Lactic Acid Calcium Ionized Calcium Phosphorus Magnesium Direct Bilirubin AST ALT Alkaline Phosphatase Lactate Dehydrogenase Troponin T C-Reactive Protein Total Protein Albumin Prealbumin Triglycerides Cholesterol LDL Cholesterol Direct HDL Cholesterol PTH Intact Urine pH Urine WBC (Auto) Urine Creatinine Urine Total Protein Fluid Total Protein Vancomycin Trough Rheumatoid Factor Complement C4 Miscellaneous Test Crossmatch See Detail 12/26/16 12/26/16 12/27/16 20:00 23:21 05:00 WBC RBC Hgb 8.4 L Hct 26.3 L D MCV MCH MCHC RDW Plt Count Lymph % (Auto) [place] % (Auto) Lymph # [place]ick # Baso # Seg Neutrophils % Seg Neuts % (Manual) Lymphocytes % (Manual) Monocytes % (Manual) Eosinophils % (Manual) Basophils % (Manual) Nucleated RBC % Seg Neutrophils # Seg Neutrophils # Man Lymphocytes # (Manual) Monocytes # (Manual) Eosinophils # (Manual) Basophils # (Manual) PT INR Fibrinogen dRVVT Confirm Interp Factor V Activity POC ABG pH POC ABG pCO2 POC ABG pO2 ABG pO2 ABG HCO3 ABG Base Excess ABG Hemoglobin Oxyhemoglobin Sodium Potassium Chloride Carbon Dioxide BUN 85 H Creatinine 1.6 H Glucose 118 H POC Glucose 124 H Lactic Acid Calcium Ionized Calcium Phosphorus 4.80 H Magnesium Direct Bilirubin AST ALT Alkaline Phosphatase Lactate Dehydrogenase Troponin T C-Reactive Protein Total Protein Albumin Prealbumin Triglycerides Cholesterol LDL Cholesterol Direct HDL Cholesterol PTH Intact Urine pH Urine WBC (Auto) Urine Creatinine Urine Total Protein Fluid Total Protein Vancomycin Trough Rheumatoid Factor Complement C4 Miscellaneous Test Crossmatch 12/27/16 12/27/16 12/27/16 05:00 05:35 12:24 WBC RBC Hgb 7.6 L Hct 22.8 L MCV MCH MCHC RDW Plt Count Lymph % (Auto) [place] % (Auto) Lymph # [place]ormick # Baso # Seg Neutrophils % Seg Neuts % (Manual) Lymphocytes % (Manual) Monocytes % (Manual) Eosinophils % (Manual) Basophils % (Manual) Nucleated RBC % Seg Neutrophils # Seg Neutrophils # Man Lymphocytes # (Manual) Monocytes # (Manual) Eosinophils # (Manual) Basophils # (Manual) PT INR Fibrinogen dRVVT Confirm Interp Factor V Activity POC ABG pH POC ABG pCO2 POC ABG pO2 ABG pO2 ABG HCO3 ABG Base Excess ABG Hemoglobin Oxyhemoglobin Sodium Potassium Chloride Carbon Dioxide BUN Creatinine Glucose POC Glucose 115 H 131 H Lactic Acid Calcium Ionized Calcium Phosphorus Magnesium Direct Bilirubin AST ALT Alkaline Phosphatase Lactate Dehydrogenase Troponin T C-Reactive Protein Total Protein Albumin Prealbumin Triglycerides Cholesterol LDL Cholesterol Direct HDL Cholesterol PTH Intact Urine pH Urine WBC (Auto) Urine Creatinine Urine Total Protein Fluid Total Protein Vancomycin Trough Rheumatoid Factor Complement C4 Miscellaneous Test Crossmatch 12/27/16 12/28/16 12/28/16 17:16 00:18 04:00 WBC RBC Hgb Hct MCV MCH MCHC RDW Plt Count Lymph % (Auto) [place] % (Auto) Lymph # [place] # Baso # Seg Neutrophils % Seg Neuts % (Manual) Lymphocytes % (Manual) Monocytes % (Manual) Eosinophils % (Manual) Basophils % (Manual) Nucleated RBC % Seg Neutrophils # Seg Neutrophils # Man Lymphocytes # (Manual) Monocytes # (Manual) Eosinophils # (Manual) Basophils # (Manual) PT INR Fibrinogen dRVVT Confirm Interp Factor V Activity POC ABG pH POC ABG pCO2 POC ABG pO2 ABG pO2 ABG HCO3 ABG Base Excess ABG Hemoglobin Oxyhemoglobin Sodium Potassium 3.5 L Chloride Carbon Dioxide BUN 57 H Creatinine Glucose 118 H POC Glucose 136 H 120 H Lactic Acid Calcium 8.3 L Ionized Calcium Phosphorus Magnesium Direct Bilirubin AST ALT Alkaline Phosphatase Lactate Dehydrogenase Troponin T C-Reactive Protein Total Protein Albumin Prealbumin Triglycerides Cholesterol LDL Cholesterol Direct HDL Cholesterol PTH Intact Urine pH Urine WBC (Auto) Urine Creatinine Urine Total Protein Fluid Total Protein Vancomycin Trough Rheumatoid Factor Complement C4 Miscellaneous Test Crossmatch 12/28/16 12/28/16 12/28/16 04:00 05:11 08:30 WBC 17.0 H RBC 2.58 L Hgb 7.1 L Hct 22.0 L MCV MCH MCHC RDW 17.6 H Plt Count Lymph % (Auto) 12.2 L M[place]ick % (Auto) Lymph # M[place]ormick # 1.1 H Baso # Seg Neutrophils % 80.5 H Seg Neuts % (Manual) Lymphocytes % (Manual) Monocytes % (Manual) Eosinophils % (Manual) Basophils % (Manual) Nucleated RBC % Seg Neutrophils # 13.7 H Seg Neutrophils # Man Lymphocytes # (Manual) Monocytes # (Manual) Eosinophils # (Manual) Basophils # (Manual) PT 16.1 H INR 1.23 H Fibrinogen dRVVT Confirm Interp Factor V Activity POC ABG pH POC ABG pCO2 POC ABG pO2 ABG pO2 ABG HCO3 ABG Base Excess ABG Hemoglobin Oxyhemoglobin Sodium Potassium Chloride Carbon Dioxide BUN Creatinine Glucose POC Glucose 122 H Lactic Acid Calcium Ionized Calcium Phosphorus Magnesium Direct Bilirubin AST ALT Alkaline Phosphatase Lactate Dehydrogenase Troponin T C-Reactive Protein Total Protein Albumin Prealbumin Triglycerides Cholesterol LDL Cholesterol Direct HDL Cholesterol PTH Intact Urine pH Urine WBC (Auto) Urine Creatinine Urine Total Protein Fluid Total Protein Vancomycin Trough Rheumatoid Factor Complement C4 Miscellaneous Test Crossmatch 12/28/16 12/28/16 12/28/16 12:27 16:32 23:46 WBC RBC Hgb Hct MCV MCH MCHC RDW Plt Count Lymph % (Auto) [place] % (Auto) Lymph # [place]orm[place] # Baso # Seg Neutrophils % Seg Neuts % (Manual) Lymphocytes % (Manual) Monocytes % (Manual) Eosinophils % (Manual) Basophils % (Manual) Nucleated RBC % Seg Neutrophils # Seg Neutrophils # Man Lymphocytes # (Manual) Monocytes # (Manual) Eosinophils # (Manual) Basophils # (Manual) PT INR Fibrinogen dRVVT Confirm Interp Factor V Activity POC ABG pH POC ABG pCO2 POC ABG pO2 ABG pO2 ABG HCO3 ABG Base Excess ABG Hemoglobin Oxyhemoglobin Sodium Potassium Chloride Carbon Dioxide BUN Creatinine Glucose POC Glucose 127 H 117 H 108 H Lactic Acid Calcium Ionized Calcium Phosphorus Magnesium Direct Bilirubin AST ALT Alkaline Phosphatase Lactate Dehydrogenase Troponin T C-Reactive Protein Total Protein Albumin Prealbumin Triglycerides Cholesterol LDL Cholesterol Direct HDL Cholesterol PTH Intact Urine pH Urine WBC (Auto) Urine Creatinine Urine Total Protein Fluid Total Protein Vancomycin Trough Rheumatoid Factor Complement C4 Miscellaneous Test Crossmatch 12/29/16 12/29/16 12/29/16 05:15 05:15 05:32 WBC RBC Hgb Hct MCV MCH MCHC RDW Plt Count Lymph % (Auto) [place] % (Auto) Lymph # [place] # Baso # Seg Neutrophils % Seg Neuts % (Manual) Lymphocytes % (Manual) Monocytes % (Manual) Eosinophils % (Manual) Basophils % (Manual) Nucleated RBC % Seg Neutrophils # Seg Neutrophils # Man Lymphocytes # (Manual) Monocytes # (Manual) Eosinophils # (Manual) Basophils # (Manual) PT INR Fibrinogen dRVVT Confirm Interp Factor V Activity POC ABG pH POC ABG pCO2 POC ABG pO2 ABG pO2 ABG HCO3 ABG Base Excess ABG Hemoglobin Oxyhemoglobin Sodium Potassium Chloride Carbon Dioxide BUN 74 H Creatinine 1.6 H Glucose 111 H POC Glucose 123 H Lactic Acid Calcium Ionized Calcium Phosphorus Magnesium Direct Bilirubin AST ALT Alkaline Phosphatase Lactate Dehydrogenase Troponin T C-Reactive Protein Total Protein Albumin Prealbumin 0.110 L Triglycerides Cholesterol LDL Cholesterol Direct HDL Cholesterol PTH Intact Urine pH Urine WBC (Auto) Urine Creatinine Urine Total Protein Fluid Total Protein Vancomycin Trough Rheumatoid Factor Complement C4 Miscellaneous Test Crossmatch 12/29/16 12/29/16 12/29/16 11:43 13:45 14:00 WBC 13.8 H RBC 2.26 L Hgb 6.3 L Hct 20.4 L MCV MCH MCHC RDW 18.3 H Plt Count Lymph % (Auto) [place] % (Auto) Lymph # M[place]ick # 0.9 H Baso # Seg Neutrophils % 78.6 H Seg Neuts % (Manual) Lymphocytes % (Manual) Monocytes % (Manual) Eosinophils % (Manual) Basophils % (Manual) Nucleated RBC % Seg Neutrophils # 10.8 H Seg Neutrophils # Man Lymphocytes # (Manual) Monocytes # (Manual) Eosinophils # (Manual) Basophils # (Manual) PT INR Fibrinogen dRVVT Confirm Interp Factor V Activity POC ABG pH POC ABG pCO2 POC ABG pO2 ABG pO2 ABG HCO3 ABG Base Excess ABG Hemoglobin Oxyhemoglobin Sodium Potassium Chloride Carbon Dioxide BUN Creatinine Glucose POC Glucose 133 H Lactic Acid Calcium Ionized Calcium Phosphorus Magnesium Direct Bilirubin AST ALT Alkaline Phosphatase Lactate Dehydrogenase Troponin T C-Reactive Protein Total Protein Albumin Prealbumin Triglycerides Cholesterol LDL Cholesterol Direct HDL Cholesterol PTH Intact Urine pH Urine WBC (Auto) Urine Creatinine Urine Total Protein Fluid Total Protein Vancomycin Trough Rheumatoid Factor Complement C4 Miscellaneous Test Crossmatch See Detail 12/29/16 12/29/16 12/29/16 17:03 23:15 23:22 WBC RBC Hgb 7.3 L Hct 22.3 L MCV MCH MCHC RDW Plt Count Lymph % (Auto) [place] % (Auto) Lymph # M[place]ormick # Baso # Seg Neutrophils % Seg Neuts % (Manual) Lymphocytes % (Manual) Monocytes % (Manual) Eosinophils % (Manual) Basophils % (Manual) Nucleated RBC % Seg Neutrophils # Seg Neutrophils # Man Lymphocytes # (Manual) Monocytes # (Manual) Eosinophils # (Manual) Basophils # (Manual) PT INR Fibrinogen dRVVT Confirm Interp Factor V Activity POC ABG pH POC ABG pCO2 POC ABG pO2 ABG pO2 ABG HCO3 ABG Base Excess ABG Hemoglobin Oxyhemoglobin Sodium Potassium Chloride Carbon Dioxide BUN Creatinine Glucose POC Glucose 139 H 120 H Lactic Acid Calcium Ionized Calcium Phosphorus Magnesium Direct Bilirubin AST ALT Alkaline Phosphatase Lactate Dehydrogenase Troponin T C-Reactive Protein Total Protein Albumin Prealbumin Triglycerides Cholesterol LDL Cholesterol Direct HDL Cholesterol PTH Intact Urine pH Urine WBC (Auto) Urine Creatinine Urine Total Protein Fluid Total Protein Vancomycin Trough Rheumatoid Factor Complement C4 Miscellaneous Test Crossmatch 12/30/16 12/30/16 12/30/16 04:20 04:20 05:43 WBC 15.6 H RBC 2.81 L Hgb 8.0 L Hct 24.0 L MCV MCH MCHC RDW 16.9 H Plt Count Lymph % (Auto) [place] % (Auto) Lymph # M[place]ormick # 1.0 H Baso # Seg Neutrophils % 76.2 H Seg Neuts % (Manual) Lymphocytes % (Manual) Monocytes % (Manual) Eosinophils % (Manual) Basophils % (Manual) Nucleated RBC % Seg Neutrophils # 11.9 H Seg Neutrophils # Man Lymphocytes # (Manual) Monocytes # (Manual) Eosinophils # (Manual) Basophils # (Manual) PT INR Fibrinogen dRVVT Confirm Interp Factor V Activity POC ABG pH POC ABG pCO2 POC ABG pO2 ABG pO2 ABG HCO3 ABG Base Excess ABG Hemoglobin Oxyhemoglobin Sodium Potassium Chloride Carbon Dioxide BUN 87 H Creatinine 1.8 H Glucose 119 H POC Glucose 115 H Lactic Acid Calcium Ionized Calcium Phosphorus Magnesium Direct Bilirubin AST ALT Alkaline Phosphatase Lactate Dehydrogenase Troponin T C-Reactive Protein Total Protein Albumin Prealbumin Triglycerides Cholesterol LDL Cholesterol Direct HDL Cholesterol PTH Intact Urine pH Urine WBC (Auto) Urine Creatinine Urine Total Protein Fluid Total Protein Vancomycin Trough Rheumatoid Factor Complement C4 Miscellaneous Test Crossmatch 12/30/16 12/30/16 12/31/16 17:27 23:21 04:00 WBC RBC Hgb Hct MCV MCH MCHC RDW Plt Count Lymph % (Auto) [place] % (Auto) Lymph # M[place] # Baso # Seg Neutrophils % Seg Neuts % (Manual) Lymphocytes % (Manual) Monocytes % (Manual) Eosinophils % (Manual) Basophils % (Manual) Nucleated RBC % Seg Neutrophils # Seg Neutrophils # Man Lymphocytes # (Manual) Monocytes # (Manual) Eosinophils # (Manual) Basophils # (Manual) PT INR Fibrinogen dRVVT Confirm Interp Factor V Activity POC ABG pH POC ABG pCO2 POC ABG pO2 ABG pO2 ABG HCO3 ABG Base Excess ABG Hemoglobin Oxyhemoglobin Sodium Potassium Chloride Carbon Dioxide BUN 59 H Creatinine Glucose 298 H POC Glucose 144 H 125 H Lactic Acid Calcium Ionized Calcium Phosphorus Magnesium Direct Bilirubin AST ALT Alkaline Phosphatase Lactate Dehydrogenase Troponin T C-Reactive Protein Total Protein Albumin Prealbumin Triglycerides Cholesterol LDL Cholesterol Direct HDL Cholesterol PTH Intact Urine pH Urine WBC (Auto) Urine Creatinine Urine Total Protein Fluid Total Protein Vancomycin Trough Rheumatoid Factor Complement C4 Miscellaneous Test Crossmatch 12/31/16 12/31/16 12/31/16 05:11 12:18 18:17 WBC RBC Hgb Hct MCV MCH MCHC RDW Plt Count Lymph % (Auto) [place] % (Auto) Lymph # M[place]orm[place] # Baso # Seg Neutrophils % Seg Neuts % (Manual) Lymphocytes % (Manual) Monocytes % (Manual) Eosinophils % (Manual) Basophils % (Manual) Nucleated RBC % Seg Neutrophils # Seg Neutrophils # Man Lymphocytes # (Manual) Monocytes # (Manual) Eosinophils # (Manual) Basophils # (Manual) PT INR Fibrinogen dRVVT Confirm Interp Factor V Activity POC ABG pH POC ABG pCO2 POC ABG pO2 ABG pO2 ABG HCO3 ABG Base Excess ABG Hemoglobin Oxyhemoglobin Sodium Potassium Chloride Carbon Dioxide BUN Creatinine Glucose POC Glucose 167 H 125 H 133 H Lactic Acid Calcium Ionized Calcium Phosphorus Magnesium Direct Bilirubin AST ALT Alkaline Phosphatase Lactate Dehydrogenase Troponin T C-Reactive Protein Total Protein Albumin Prealbumin Triglycerides Cholesterol LDL Cholesterol Direct HDL Cholesterol PTH Intact Urine pH Urine WBC (Auto) Urine Creatinine Urine Total Protein Fluid Total Protein Vancomycin Trough Rheumatoid Factor Complement C4 Miscellaneous Test Crossmatch 12/31/16 01/01/17 01/01/17 23:55 05:00 05:12 WBC RBC Hgb Hct MCV MCH MCHC RDW Plt Count Lymph % (Auto) [place] % (Auto) Lymph # [place]orm[place] # Baso # Seg Neutrophils % Seg Neuts % (Manual) Lymphocytes % (Manual) Monocytes % (Manual) Eosinophils % (Manual) Basophils % (Manual) Nucleated RBC % Seg Neutrophils # Seg Neutrophils # Man Lymphocytes # (Manual) Monocytes # (Manual) Eosinophils # (Manual) Basophils # (Manual) PT INR Fibrinogen dRVVT Confirm Interp Factor V Activity POC ABG pH POC ABG pCO2 POC ABG pO2 ABG pO2 ABG HCO3 ABG Base Excess ABG Hemoglobin Oxyhemoglobin Sodium Potassium Chloride Carbon Dioxide BUN 76 H Creatinine 1.5 H Glucose 109 H POC Glucose 129 H 129 H Lactic Acid Calcium Ionized Calcium Phosphorus Magnesium Direct Bilirubin AST ALT Alkaline Phosphatase 536 H Lactate Dehydrogenase Troponin T C-Reactive Protein Total Protein Albumin 1.5 L Prealbumin Triglycerides Cholesterol LDL Cholesterol Direct HDL Cholesterol PTH Intact Urine pH Urine WBC (Auto) Urine Creatinine Urine Total Protein Fluid Total Protein Vancomycin Trough Rheumatoid Factor Complement C4 Miscellaneous Test Crossmatch 01/01/17 01/01/17 01/01/17 12:25 17:01 23:32 WBC RBC Hgb Hct MCV MCH MCHC RDW Plt Count Lymph % (Auto) [place] % (Auto) Lymph # [place]orm[place] # Baso # Seg Neutrophils % Seg Neuts % (Manual) Lymphocytes % (Manual) Monocytes % (Manual) Eosinophils % (Manual) Basophils % (Manual) Nucleated RBC % Seg Neutrophils # Seg Neutrophils # Man Lymphocytes # (Manual) Monocytes # (Manual) Eosinophils # (Manual) Basophils # (Manual) PT INR Fibrinogen dRVVT Confirm Interp Factor V Activity POC ABG pH POC ABG pCO2 POC ABG pO2 ABG pO2 ABG HCO3 ABG Base Excess ABG Hemoglobin Oxyhemoglobin Sodium Potassium Chloride Carbon Dioxide BUN Creatinine Glucose POC Glucose 140 H 142 H 112 H Lactic Acid Calcium Ionized Calcium Phosphorus Magnesium Direct Bilirubin AST ALT Alkaline Phosphatase Lactate Dehydrogenase Troponin T C-Reactive Protein Total Protein Albumin Prealbumin Triglycerides Cholesterol LDL Cholesterol Direct HDL Cholesterol PTH Intact Urine pH Urine WBC (Auto) Urine Creatinine Urine Total Protein Fluid Total Protein Vancomycin Trough Rheumatoid Factor Complement C4 Miscellaneous Test Crossmatch 01/02/17 01/02/17 01/02/17 04:56 06:00 11:37 WBC RBC Hgb Hct MCV MCH MCHC RDW Plt Count Lymph % (Auto) [place] % (Auto) Lymph # [place]ormick # Baso # Seg Neutrophils % Seg Neuts % (Manual) Lymphocytes % (Manual) Monocytes % (Manual) Eosinophils % (Manual) Basophils % (Manual) Nucleated RBC % Seg Neutrophils # Seg Neutrophils # Man Lymphocytes # (Manual) Monocytes # (Manual) Eosinophils # (Manual) Basophils # (Manual) PT INR Fibrinogen dRVVT Confirm Interp Factor V Activity POC ABG pH POC ABG pCO2 POC ABG pO2 ABG pO2 ABG HCO3 ABG Base Excess ABG Hemoglobin Oxyhemoglobin Sodium Potassium Chloride Carbon Dioxide BUN 88 H Creatinine 1.7 H Glucose 113 H POC Glucose 136 H 200 H Lactic Acid Calcium Ionized Calcium Phosphorus Magnesium Direct Bilirubin AST ALT Alkaline Phosphatase Lactate Dehydrogenase Troponin T C-Reactive Protein Total Protein Albumin Prealbumin Triglycerides Cholesterol LDL Cholesterol Direct HDL Cholesterol PTH Intact Urine pH Urine WBC (Auto) Urine Creatinine Urine Total Protein Fluid Total Protein Vancomycin Trough Rheumatoid Factor Complement C4 Miscellaneous Test Crossmatch 01/02/17 01/02/17 01/03/17 17:42 22:52 04:54 WBC RBC Hgb Hct MCV MCH MCHC RDW Plt Count Lymph % (Auto) [place] % (Auto) Lymph # M[place]ormick # Baso # Seg Neutrophils % Seg Neuts % (Manual) Lymphocytes % (Manual) Monocytes % (Manual) Eosinophils % (Manual) Basophils % (Manual) Nucleated RBC % Seg Neutrophils # Seg Neutrophils # Man Lymphocytes # (Manual) Monocytes # (Manual) Eosinophils # (Manual) Basophils # (Manual) PT INR Fibrinogen dRVVT Confirm Interp Factor V Activity POC ABG pH POC ABG pCO2 POC ABG pO2 ABG pO2 ABG HCO3 ABG Base Excess ABG Hemoglobin Oxyhemoglobin Sodium Potassium Chloride Carbon Dioxide BUN Creatinine Glucose POC Glucose 112 H 133 H 111 H Lactic Acid Calcium Ionized Calcium Phosphorus Magnesium Direct Bilirubin AST ALT Alkaline Phosphatase Lactate Dehydrogenase Troponin T C-Reactive Protein Total Protein Albumin Prealbumin Triglycerides Cholesterol LDL Cholesterol Direct HDL Cholesterol PTH Intact Urine pH Urine WBC (Auto) Urine Creatinine Urine Total Protein Fluid Total Protein Vancomycin Trough Rheumatoid Factor Complement C4 Miscellaneous Test Crossmatch 01/03/17 01/03/17 01/03/17 05:00 05:00 14:02 WBC 11.2 H RBC 2.56 L Hgb 7.2 L Hct 22.3 L MCV MCH MCHC RDW 17.3 H Plt Count Lymph % (Auto) [place] % (Auto) 10.0 H Lymph # M[place]ormick # 1.1 H Baso # Seg Neutrophils % 70.5 H Seg Neuts % (Manual) Lymphocytes % (Manual) Monocytes % (Manual) Eosinophils % (Manual) Basophils % (Manual) Nucleated RBC % Seg Neutrophils # 7.9 H Seg Neutrophils # Man Lymphocytes # (Manual) Monocytes # (Manual) Eosinophils # (Manual) Basophils # (Manual) PT INR Fibrinogen dRVVT Confirm Interp Factor V Activity POC ABG pH POC ABG pCO2 POC ABG pO2 ABG pO2 ABG HCO3 ABG Base Excess ABG Hemoglobin Oxyhemoglobin Sodium Potassium Chloride Carbon Dioxide BUN 60 H Creatinine 1.3 H Glucose 110 H POC Glucose 119 H Lactic Acid Calcium Ionized Calcium Phosphorus Magnesium Direct Bilirubin AST ALT Alkaline Phosphatase Lactate Dehydrogenase Troponin T C-Reactive Protein Total Protein Albumin Prealbumin Triglycerides Cholesterol LDL Cholesterol Direct HDL Cholesterol PTH Intact Urine pH Urine WBC (Auto) Urine Creatinine Urine Total Protein Fluid Total Protein Vancomycin Trough Rheumatoid Factor Complement C4 Miscellaneous Test Crossmatch 01/03/17 01/03/17 01/04/17 18:13 23:40 05:57 WBC RBC Hgb Hct MCV MCH MCHC RDW Plt Count Lymph % (Auto) [place] % (Auto) Lymph # M[place]ormick # Baso # Seg Neutrophils % Seg Neuts % (Manual) Lymphocytes % (Manual) Monocytes % (Manual) Eosinophils % (Manual) Basophils % (Manual) Nucleated RBC % Seg Neutrophils # Seg Neutrophils # Man Lymphocytes # (Manual) Monocytes # (Manual) Eosinophils # (Manual) Basophils # (Manual) PT INR Fibrinogen dRVVT Confirm Interp Factor V Activity POC ABG pH POC ABG pCO2 POC ABG pO2 ABG pO2 ABG HCO3 ABG Base Excess ABG Hemoglobin Oxyhemoglobin Sodium Potassium Chloride Carbon Dioxide BUN Creatinine Glucose POC Glucose 107 H 129 H 111 H Lactic Acid Calcium Ionized Calcium Phosphorus Magnesium Direct Bilirubin AST ALT Alkaline Phosphatase Lactate Dehydrogenase Troponin T C-Reactive Protein Total Protein Albumin Prealbumin Triglycerides Cholesterol LDL Cholesterol Direct HDL Cholesterol PTH Intact Urine pH Urine WBC (Auto) Urine Creatinine Urine Total Protein Fluid Total Protein Vancomycin Trough Rheumatoid Factor Complement C4 Miscellaneous Test Crossmatch 01/04/17 01/04/17 01/04/17 12:46 15:27 17:11 WBC RBC Hgb Hct MCV MCH MCHC RDW Plt Count Lymph % (Auto) [place] % (Auto) Lymph # M[place]ormick # Baso # Seg Neutrophils % Seg Neuts % (Manual) Lymphocytes % (Manual) Monocytes % (Manual) Eosinophils % (Manual) Basophils % (Manual) Nucleated RBC % Seg Neutrophils # Seg Neutrophils # Man Lymphocytes # (Manual) Monocytes # (Manual) Eosinophils # (Manual) Basophils # (Manual) PT INR Fibrinogen dRVVT Confirm Interp Factor V Activity POC ABG pH POC ABG pCO2 POC ABG pO2 ABG pO2 ABG HCO3 ABG Base Excess ABG Hemoglobin Oxyhemoglobin Sodium Potassium Chloride Carbon Dioxide BUN 43 H Creatinine Glucose 124 H POC Glucose 159 H 125 H Lactic Acid Calcium 8.0 L Ionized Calcium Phosphorus 2.10 L Magnesium Direct Bilirubin AST ALT Alkaline Phosphatase Lactate Dehydrogenase Troponin T C-Reactive Protein Total Protein Albumin Prealbumin Triglycerides Cholesterol LDL Cholesterol Direct HDL Cholesterol PTH Intact Urine pH Urine WBC (Auto) Urine Creatinine Urine Total Protein Fluid Total Protein Vancomycin Trough Rheumatoid Factor Complement C4 Miscellaneous Test Crossmatch 01/04/17 01/05/17 01/05/17 23:31 04:00 05:46 WBC RBC Hgb Hct MCV MCH MCHC RDW Plt Count Lymph % (Auto) [place] % (Auto) Lymph # [place] # Baso # Seg Neutrophils % Seg Neuts % (Manual) Lymphocytes % (Manual) Monocytes % (Manual) Eosinophils % (Manual) Basophils % (Manual) Nucleated RBC % Seg Neutrophils # Seg Neutrophils # Man Lymphocytes # (Manual) Monocytes # (Manual) Eosinophils # (Manual) Basophils # (Manual) PT INR Fibrinogen dRVVT Confirm Interp Factor V Activity POC ABG pH POC ABG pCO2 POC ABG pO2 ABG pO2 ABG HCO3 ABG Base Excess ABG Hemoglobin Oxyhemoglobin Sodium Potassium Chloride Carbon Dioxide BUN 52 H Creatinine 1.3 H Glucose 113 H POC Glucose 123 H 118 H Lactic Acid Calcium Ionized Calcium Phosphorus 2.40 L Magnesium Direct Bilirubin AST ALT Alkaline Phosphatase Lactate Dehydrogenase Troponin T C-Reactive Protein Total Protein Albumin Prealbumin Triglycerides Cholesterol LDL Cholesterol Direct HDL Cholesterol PTH Intact Urine pH Urine WBC (Auto) Urine Creatinine Urine Total Protein Fluid Total Protein Vancomycin Trough Rheumatoid Factor Complement C4 Miscellaneous Test Crossmatch 01/05/17 01/05/17 01/05/17 11:41 17:48 23:27 WBC RBC Hgb Hct MCV MCH MCHC RDW Plt Count Lymph % (Auto) [place] % (Auto) Lymph # [place] # Baso # Seg Neutrophils % Seg Neuts % (Manual) Lymphocytes % (Manual) Monocytes % (Manual) Eosinophils % (Manual) Basophils % (Manual) Nucleated RBC % Seg Neutrophils # Seg Neutrophils # Man Lymphocytes # (Manual) Monocytes # (Manual) Eosinophils # (Manual) Basophils # (Manual) PT INR Fibrinogen dRVVT Confirm Interp Factor V Activity POC ABG pH POC ABG pCO2 POC ABG pO2 ABG pO2 ABG HCO3 ABG Base Excess ABG Hemoglobin Oxyhemoglobin Sodium Potassium Chloride Carbon Dioxide BUN Creatinine Glucose POC Glucose 163 H 142 H 155 H Lactic Acid Calcium Ionized Calcium Phosphorus Magnesium Direct Bilirubin AST ALT Alkaline Phosphatase Lactate Dehydrogenase Troponin T C-Reactive Protein Total Protein Albumin Prealbumin Triglycerides Cholesterol LDL Cholesterol Direct HDL Cholesterol PTH Intact Urine pH Urine WBC (Auto) Urine Creatinine Urine Total Protein Fluid Total Protein Vancomycin Trough Rheumatoid Factor Complement C4 Miscellaneous Test Crossmatch 01/06/17 01/06/17 01/06/17 05:20 07:35 11:18 WBC RBC Hgb Hct MCV MCH MCHC RDW Plt Count Lymph % (Auto) [place] % (Auto) Lymph # [place] # Baso # Seg Neutrophils % Seg Neuts % (Manual) Lymphocytes % (Manual) Monocytes % (Manual) Eosinophils % (Manual) Basophils % (Manual) Nucleated RBC % Seg Neutrophils # Seg Neutrophils # Man Lymphocytes # (Manual) Monocytes # (Manual) Eosinophils # (Manual) Basophils # (Manual) PT INR Fibrinogen dRVVT Confirm Interp Factor V Activity POC ABG pH POC ABG pCO2 POC ABG pO2 ABG pO2 ABG HCO3 ABG Base Excess ABG Hemoglobin Oxyhemoglobin Sodium Potassium Chloride Carbon Dioxide BUN 74 H Creatinine 1.6 H Glucose 135 H POC Glucose 108 H 149 H Lactic Acid Calcium Ionized Calcium Phosphorus Magnesium Direct Bilirubin AST ALT Alkaline Phosphatase Lactate Dehydrogenase Troponin T C-Reactive Protein Total Protein Albumin Prealbumin Triglycerides Cholesterol LDL Cholesterol Direct HDL Cholesterol PTH Intact Urine pH Urine WBC (Auto) Urine Creatinine Urine Total Protein Fluid Total Protein Vancomycin Trough Rheumatoid Factor Complement C4 Miscellaneous Test Crossmatch 01/06/17 01/07/17 01/07/17 17:17 00:23 05:31 WBC RBC Hgb Hct MCV MCH MCHC RDW Plt Count Lymph % (Auto) [place] % (Auto) Lymph # [place] # Baso # Seg Neutrophils % Seg Neuts % (Manual) Lymphocytes % (Manual) Monocytes % (Manual) Eosinophils % (Manual) Basophils % (Manual) Nucleated RBC % Seg Neutrophils # Seg Neutrophils # Man Lymphocytes # (Manual) Monocytes # (Manual) Eosinophils # (Manual) Basophils # (Manual) PT INR Fibrinogen dRVVT Confirm Interp Factor V Activity POC ABG pH POC ABG pCO2 POC ABG pO2 ABG pO2 ABG HCO3 ABG Base Excess ABG Hemoglobin Oxyhemoglobin Sodium Potassium Chloride Carbon Dioxide BUN Creatinine Glucose POC Glucose 146 H 165 H 153 H Lactic Acid Calcium Ionized Calcium Phosphorus Magnesium Direct Bilirubin AST ALT Alkaline Phosphatase Lactate Dehydrogenase Troponin T C-Reactive Protein Total Protein Albumin Prealbumin Triglycerides Cholesterol LDL Cholesterol Direct HDL Cholesterol PTH Intact Urine pH Urine WBC (Auto) Urine Creatinine Urine Total Protein Fluid Total Protein Vancomycin Trough Rheumatoid Factor Complement C4 Miscellaneous Test Crossmatch 01/07/17 01/07/17 01/07/17 06:00 11:39 17:11 WBC RBC Hgb Hct MCV MCH MCHC RDW Plt Count Lymph % (Auto) [place] % (Auto) Lymph # [place] # Baso # Seg Neutrophils % Seg Neuts % (Manual) Lymphocytes % (Manual) Monocytes % (Manual) Eosinophils % (Manual) Basophils % (Manual) Nucleated RBC % Seg Neutrophils # Seg Neutrophils # Man Lymphocytes # (Manual) Monocytes # (Manual) Eosinophils # (Manual) Basophils # (Manual) PT INR Fibrinogen dRVVT Confirm Interp Factor V Activity POC ABG pH POC ABG pCO2 POC ABG pO2 ABG pO2 ABG HCO3 ABG Base Excess ABG Hemoglobin Oxyhemoglobin Sodium Potassium Chloride Carbon Dioxide BUN 42 H Creatinine Glucose 175 H POC Glucose 163 H 163 H Lactic Acid Calcium Ionized Calcium Phosphorus 2.40 L D Magnesium Direct Bilirubin AST ALT Alkaline Phosphatase Lactate Dehydrogenase Troponin T C-Reactive Protein Total Protein Albumin Prealbumin Triglycerides Cholesterol LDL Cholesterol Direct HDL Cholesterol PTH Intact Urine pH Urine WBC (Auto) Urine Creatinine Urine Total Protein Fluid Total Protein Vancomycin Trough Rheumatoid Factor Complement C4 Miscellaneous Test Crossmatch 11/01/08/17 01/08/17 23:40 05:00 05:00 WBC 27.4 H RBC 2.27 L Hgb 6.1 L Hct 20.4 L MCV MCH 27 L MCHC RDW 17.8 H Plt Count Lymph % (Auto) [place] % (Auto) Lymph # [place] # Baso # Seg Neutrophils % Seg Neuts % (Manual) Lymphocytes % (Manual) Monocytes % (Manual) Eosinophils % (Manual) Basophils % (Manual) Nucleated RBC % Seg Neutrophils # Seg Neutrophils # Man Lymphocytes # (Manual) Monocytes # (Manual) Eosinophils # (Manual) Basophils # (Manual) PT INR Fibrinogen dRVVT Confirm Interp Factor V Activity POC ABG pH POC ABG pCO2 POC ABG pO2 ABG pO2 ABG HCO3 ABG Base Excess ABG Hemoglobin Oxyhemoglobin Sodium Potassium Chloride Carbon Dioxide 16 L D BUN 62 H Creatinine 1.6 H D Glucose 103 H POC Glucose 135 H Lactic Acid Calcium Ionized Calcium Phosphorus Magnesium Direct Bilirubin AST ALT Alkaline Phosphatase Lactate Dehydrogenase Troponin T C-Reactive Protein Total Protein Albumin Prealbumin Triglycerides Cholesterol LDL Cholesterol Direct HDL Cholesterol PTH Intact Urine pH Urine WBC (Auto) Urine Creatinine Urine Total Protein Fluid Total Protein Vancomycin Trough Rheumatoid Factor Complement C4 Miscellaneous Test Crossmatch 01/08/17 01/08/17 01/08/17 05:25 10:37 10:37 WBC RBC Hgb Hct MCV MCH MCHC RDW Plt Count Lymph % (Auto) [place] % (Auto) Lymph # [place] # Baso # Seg Neutrophils % Seg Neuts % (Manual) Lymphocytes % (Manual) Monocytes % (Manual) Eosinophils % (Manual) Basophils % (Manual) Nucleated RBC % Seg Neutrophils # Seg Neutrophils # Man Lymphocytes # (Manual) Monocytes # (Manual) Eosinophils # (Manual) Basophils # (Manual) PT INR Fibrinogen dRVVT Confirm Interp Factor V Activity POC ABG pH POC ABG pCO2 POC ABG pO2 ABG pO2 ABG HCO3 ABG Base Excess ABG Hemoglobin Oxyhemoglobin Sodium Potassium Chloride Carbon Dioxide BUN Creatinine Glucose POC Glucose 106 H Lactic Acid Calcium Ionized Calcium Phosphorus Magnesium Direct Bilirubin AST ALT Alkaline Phosphatase Lactate Dehydrogenase Troponin T C-Reactive Protein 24.40 H Total Protein Albumin Prealbumin Triglycerides Cholesterol LDL Cholesterol Direct HDL Cholesterol PTH Intact Urine pH Urine WBC (Auto) Urine Creatinine Urine Total Protein Fluid Total Protein Vancomycin Trough Rheumatoid Factor Complement C4 Miscellaneous Test Crossmatch See Detail 01/08/17 01/08/1717 10:37 11:33 15:15 WBC RBC Hgb Hct MCV MCH MCHC RDW Plt Count Lymph % (Auto) [place] % (Auto) Lymph # [place] # Baso # Seg Neutrophils % Seg Neuts % (Manual) Lymphocytes % (Manual) Monocytes % (Manual) Eosinophils % (Manual) Basophils % (Manual) Nucleated RBC % Seg Neutrophils # Seg Neutrophils # Man Lymphocytes # (Manual) Monocytes # (Manual) Eosinophils # (Manual) Basophils # (Manual) PT INR Fibrinogen dRVVT Confirm Interp Factor V Activity POC ABG pH POC ABG pCO2 POC ABG pO2 ABG pO2 ABG HCO3 ABG Base Excess ABG Hemoglobin Oxyhemoglobin Sodium Potassium Chloride Carbon Dioxide BUN Creatinine Glucose POC Glucose 157 H Lactic Acid 9.70 H* 9.10 H* Calcium Ionized Calcium Phosphorus Magnesium Direct Bilirubin AST ALT Alkaline Phosphatase Lactate Dehydrogenase Troponin T C-Reactive Protein Total Protein Albumin Prealbumin Triglycerides Cholesterol LDL Cholesterol Direct HDL Cholesterol PTH Intact Urine pH Urine WBC (Auto) Urine Creatinine Urine Total Protein Fluid Total Protein Vancomycin Trough Rheumatoid Factor Complement C4 Miscellaneous Test Crossmatch 01/08/17 01/08/17 01/09/17 17:19 23:12 04:40 WBC RBC Hgb Hct MCV MCH MCHC RDW Plt Count Lymph % (Auto) [place] % (Auto) Lymph # [place] # Baso # Seg Neutrophils % Seg Neuts % (Manual) Lymphocytes % (Manual) Monocytes % (Manual) Eosinophils % (Manual) Basophils % (Manual) Nucleated RBC % Seg Neutrophils # Seg Neutrophils # Man Lymphocytes # (Manual) Monocytes # (Manual) Eosinophils # (Manual) Basophils # (Manual) PT INR Fibrinogen dRVVT Confirm Interp Factor V Activity POC ABG pH POC ABG pCO2 POC ABG pO2 ABG pO2 ABG HCO3 ABG Base Excess ABG Hemoglobin Oxyhemoglobin Sodium 147 H Potassium Chloride Carbon Dioxide BUN 82 H Creatinine 1.8 H Glucose 137 H POC Glucose 164 H 157 H Lactic Acid Calcium Ionized Calcium Phosphorus Magnesium Direct Bilirubin AST ALT Alkaline Phosphatase Lactate Dehydrogenase Troponin T C-Reactive Protein Total Protein Albumin Prealbumin Triglycerides Cholesterol LDL Cholesterol Direct HDL Cholesterol PTH Intact Urine pH Urine WBC (Auto) Urine Creatinine Urine Total Protein Fluid Total Protein Vancomycin Trough Rheumatoid Factor Complement C4 Miscellaneous Test Crossmatch 01/09/17 01/09/17 01/09/17 05:42 08:22 10:57 WBC RBC Hgb Hct MCV MCH MCHC RDW Plt Count Lymph % (Auto) [place] % (Auto) Lymph # [place] # Baso # Seg Neutrophils % Seg Neuts % (Manual) Lymphocytes % (Manual) Monocytes % (Manual) Eosinophils % (Manual) Basophils % (Manual) Nucleated RBC % Seg Neutrophils # Seg Neutrophils # Man Lymphocytes # (Manual) Monocytes # (Manual) Eosinophils # (Manual) Basophils # (Manual) PT INR Fibrinogen dRVVT Confirm Interp Factor V Activity POC ABG pH POC ABG pCO2 POC ABG pO2 ABG pO2 ABG HCO3 ABG Base Excess ABG Hemoglobin Oxyhemoglobin Sodium Potassium Chloride Carbon Dioxide BUN Creatinine Glucose POC Glucose 156 H 122 H Lactic Acid 2.30 H* Calcium Ionized Calcium Phosphorus Magnesium Direct Bilirubin AST ALT Alkaline Phosphatase Lactate Dehydrogenase Troponin T C-Reactive Protein Total Protein Albumin Prealbumin Triglycerides Cholesterol LDL Cholesterol Direct HDL Cholesterol PTH Intact Urine pH Urine WBC (Auto) Urine Creatinine Urine Total Protein Fluid Total Protein Vancomycin Trough Rheumatoid Factor Complement C4 Miscellaneous Test Crossmatch 01/09/17 01/09/17 01/09/17 13:30 17:14 18:45 WBC RBC Hgb Hct MCV MCH MCHC RDW Plt Count Lymph % (Auto) [place] % (Auto) Lymph # [place] # Baso # Seg Neutrophils % Seg Neuts % (Manual) Lymphocytes % (Manual) Monocytes % (Manual) Eosinophils % (Manual) Basophils % (Manual) Nucleated RBC % Seg Neutrophils # Seg Neutrophils # Man Lymphocytes # (Manual) Monocytes # (Manual) Eosinophils # (Manual) Basophils # (Manual) PT INR Fibrinogen dRVVT Confirm Interp Factor V Activity POC ABG pH POC ABG pCO2 POC ABG pO2 ABG pO2 ABG HCO3 ABG Base Excess ABG Hemoglobin Oxyhemoglobin Sodium Potassium Chloride Carbon Dioxide BUN Creatinine Glucose POC Glucose 127 H Lactic Acid Calcium Ionized Calcium Phosphorus Magnesium Direct Bilirubin AST ALT Alkaline Phosphatase Lactate Dehydrogenase Troponin T C-Reactive Protein 24.70 H Total Protein Albumin Prealbumin Triglycerides Cholesterol LDL Cholesterol Direct HDL Cholesterol PTH Intact Urine pH Urine WBC (Auto) Urine Creatinine Urine Total Protein Fluid Total Protein Vancomycin Trough Rheumatoid Factor Complement C4 Miscellaneous Test Flexitest 1 H Crossmatch 01/10/17 01/10/17 01/10/17 01:21 04:00 04:00 WBC 18.1 H RBC 3.22 L Hgb 8.8 L Hct 27.0 L D MCV MCH 27 L MCHC RDW 17.0 H Plt Count Lymph % (Auto) [place] % (Auto) Lymph # [place] # Baso # Seg Neutrophils % Seg Neuts % (Manual) Lymphocytes % (Manual) Monocytes % (Manual) Eosinophils % (Manual) Basophils % (Manual) Nucleated RBC % Seg Neutrophils # Seg Neutrophils # Man Lymphocytes # (Manual) Monocytes # (Manual) Eosinophils # (Manual) Basophils # (Manual) PT INR Fibrinogen dRVVT Confirm Interp Factor V Activity POC ABG pH POC ABG pCO2 POC ABG pO2 ABG pO2 ABG HCO3 ABG Base Excess ABG Hemoglobin Oxyhemoglobin Sodium Potassium Chloride Carbon Dioxide BUN 59 H Creatinine 1.3 H Glucose 122 H POC Glucose 160 H Lactic Acid Calcium Ionized Calcium Phosphorus Magnesium Direct Bilirubin AST ALT Alkaline Phosphatase Lactate Dehydrogenase Troponin T C-Reactive Protein Total Protein Albumin Prealbumin Triglycerides Cholesterol LDL Cholesterol Direct HDL Cholesterol PTH Intact Urine pH Urine WBC (Auto) Urine Creatinine Urine Total Protein Fluid Total Protein Vancomycin Trough Rheumatoid Factor Complement C4 Miscellaneous Test Crossmatch 01/10/17 01/10/17 01/10/17 05:36 12:14 17:55 WBC RBC Hgb Hct MCV MCH MCHC RDW Plt Count Lymph % (Auto) [place] % (Auto) Lymph # [place] # Baso # Seg Neutrophils % Seg Neuts % (Manual) Lymphocytes % (Manual) Monocytes % (Manual) Eosinophils % (Manual) Basophils % (Manual) Nucleated RBC % Seg Neutrophils # Seg Neutrophils # Man Lymphocytes # (Manual) Monocytes # (Manual) Eosinophils # (Manual) Basophils # (Manual) PT INR Fibrinogen dRVVT Confirm Interp Factor V Activity POC ABG pH POC ABG pCO2 POC ABG pO2 ABG pO2 ABG HCO3 ABG Base Excess ABG Hemoglobin Oxyhemoglobin Sodium Potassium Chloride Carbon Dioxide BUN Creatinine Glucose POC Glucose 163 H 120 H 144 H Lactic Acid Calcium Ionized Calcium Phosphorus Magnesium Direct Bilirubin AST ALT Alkaline Phosphatase Lactate Dehydrogenase Troponin T C-Reactive Protein Total Protein Albumin Prealbumin Triglycerides Cholesterol LDL Cholesterol Direct HDL Cholesterol PTH Intact Urine pH Urine WBC (Auto) Urine Creatinine Urine Total Protein Fluid Total Protein Vancomycin Trough Rheumatoid Factor Complement C4 Miscellaneous Test Crossmatch 01/11/17 01/11/17 01/11/17 00:09 04:00 04:00 WBC 15.8 H RBC 3.04 L Hgb 8.2 L Hct 25.5 L MCV MCH 27 L MCHC RDW 17.3 H Plt Count Lymph % (Auto) [place] % (Auto) Lymph # [place] # Baso # Seg Neutrophils % Seg Neuts % (Manual) Lymphocytes % (Manual) Monocytes % (Manual) Eosinophils % (Manual) Basophils % (Manual) Nucleated RBC % Seg Neutrophils # Seg Neutrophils # Man Lymphocytes # (Manual) Monocytes # (Manual) Eosinophils # (Manual) Basophils # (Manual) PT INR Fibrinogen dRVVT Confirm Interp Factor V Activity POC ABG pH POC ABG pCO2 POC ABG pO2 ABG pO2 ABG HCO3 ABG Base Excess ABG Hemoglobin Oxyhemoglobin Sodium Potassium Chloride Carbon Dioxide BUN 78 H Creatinine 1.6 H Glucose 109 H POC Glucose 122 H Lactic Acid Calcium Ionized Calcium Phosphorus Magnesium Direct Bilirubin AST ALT Alkaline Phosphatase Lactate Dehydrogenase Troponin T C-Reactive Protein Total Protein Albumin Prealbumin Triglycerides Cholesterol LDL Cholesterol Direct HDL Cholesterol PTH Intact Urine pH Urine WBC (Auto) Urine Creatinine Urine Total Protein Fluid Total Protein Vancomycin Trough Rheumatoid Factor Complement C4 Miscellaneous Test Crossmatch 01/11/17 01/11/17 01/11/17 12:46 18:23 23:42 WBC RBC Hgb Hct MCV MCH MCHC RDW Plt Count Lymph % (Auto) [place] % (Auto) Lymph # [place] # Baso # Seg Neutrophils % Seg Neuts % (Manual) Lymphocytes % (Manual) Monocytes % (Manual) Eosinophils % (Manual) Basophils % (Manual) Nucleated RBC % Seg Neutrophils # Seg Neutrophils # Man Lymphocytes # (Manual) Monocytes # (Manual) Eosinophils # (Manual) Basophils # (Manual) PT INR Fibrinogen dRVVT Confirm Interp Factor V Activity POC ABG pH POC ABG pCO2 POC ABG pO2 ABG pO2 ABG HCO3 ABG Base Excess ABG Hemoglobin Oxyhemoglobin Sodium Potassium Chloride Carbon Dioxide BUN Creatinine Glucose POC Glucose 148 H 125 H 124 H Lactic Acid Calcium Ionized Calcium Phosphorus Magnesium Direct Bilirubin AST ALT Alkaline Phosphatase Lactate Dehydrogenase Troponin T C-Reactive Protein Total Protein Albumin Prealbumin Triglycerides Cholesterol LDL Cholesterol Direct HDL Cholesterol PTH Intact Urine pH Urine WBC (Auto) Urine Creatinine Urine Total Protein Fluid Total Protein Vancomycin Trough Rheumatoid Factor Complement C4 Miscellaneous Test Crossmatch 01/12/17 01/12/17 01/12/17 04:30 04:30 05:47 WBC 15.8 H RBC 3.31 L Hgb 8.9 L Hct 27.9 L MCV MCH 27 L MCHC RDW 17.4 H Plt Count Lymph % (Auto) [place] % (Auto) Lymph # [place] # Baso # Seg Neutrophils % Seg Neuts % (Manual) Lymphocytes % (Manual) Monocytes % (Manual) Eosinophils % (Manual) Basophils % (Manual) Nucleated RBC % Seg Neutrophils # Seg Neutrophils # Man Lymphocytes # (Manual) Monocytes # (Manual) Eosinophils # (Manual) Basophils # (Manual) PT INR Fibrinogen dRVVT Confirm Interp Factor V Activity POC ABG pH POC ABG pCO2 POC ABG pO2 ABG pO2 ABG HCO3 ABG Base Excess ABG Hemoglobin Oxyhemoglobin Sodium Potassium Chloride Carbon Dioxide BUN 57 H Creatinine Glucose 121 H POC Glucose 110 H Lactic Acid Calcium Ionized Calcium Phosphorus 2.10 L Magnesium Direct Bilirubin AST ALT Alkaline Phosphatase Lactate Dehydrogenase Troponin T C-Reactive Protein Total Protein Albumin Prealbumin Triglycerides Cholesterol LDL Cholesterol Direct HDL Cholesterol PTH Intact Urine pH Urine WBC (Auto) Urine Creatinine Urine Total Protein Fluid Total Protein Vancomycin Trough Rheumatoid Factor Complement C4 Miscellaneous Test Crossmatch 01/12/17 01/12/17 01/12/17 11:35 17:45 23:14 WBC RBC Hgb Hct MCV MCH MCHC RDW Plt Count Lymph % (Auto) [place] % (Auto) Lymph # [place] # Baso # Seg Neutrophils % Seg Neuts % (Manual) Lymphocytes % (Manual) Monocytes % (Manual) Eosinophils % (Manual) Basophils % (Manual) Nucleated RBC % Seg Neutrophils # Seg Neutrophils # Man Lymphocytes # (Manual) Monocytes # (Manual) Eosinophils # (Manual) Basophils # (Manual) PT INR Fibrinogen dRVVT Confirm Interp Factor V Activity POC ABG pH POC ABG pCO2 POC ABG pO2 ABG pO2 ABG HCO3 ABG Base Excess ABG Hemoglobin Oxyhemoglobin Sodium Potassium Chloride Carbon Dioxide BUN Creatinine Glucose POC Glucose 146 H 117 H 123 H Lactic Acid Calcium Ionized Calcium Phosphorus Magnesium Direct Bilirubin AST ALT Alkaline Phosphatase Lactate Dehydrogenase Troponin T C-Reactive Protein Total Protein Albumin Prealbumin Triglycerides Cholesterol LDL Cholesterol Direct HDL Cholesterol PTH Intact Urine pH Urine WBC (Auto) Urine Creatinine Urine Total Protein Fluid Total Protein Vancomycin Trough Rheumatoid Factor Complement C4 Miscellaneous Test Crossmatch 01/13/17 01/13/17 01/13/17 05:32 06:00 12:10 WBC RBC Hgb Hct MCV MCH MCHC RDW Plt Count Lymph % (Auto) [place] % (Auto) Lymph # [place] # Baso # Seg Neutrophils % Seg Neuts % (Manual) Lymphocytes % (Manual) Monocytes % (Manual) Eosinophils % (Manual) Basophils % (Manual) Nucleated RBC % Seg Neutrophils # Seg Neutrophils # Man Lymphocytes # (Manual) Monocytes # (Manual) Eosinophils # (Manual) Basophils # (Manual) PT INR Fibrinogen dRVVT Confirm Interp Factor V Activity POC ABG pH POC ABG pCO2 POC ABG pO2 ABG pO2 ABG HCO3 ABG Base Excess ABG Hemoglobin Oxyhemoglobin Sodium Potassium Chloride Carbon Dioxide BUN 80 H Creatinine 1.4 H Glucose 106 H POC Glucose 106 H Lactic Acid Calcium Ionized Calcium Phosphorus Magnesium Direct Bilirubin AST ALT Alkaline Phosphatase Lactate Dehydrogenase Troponin T C-Reactive Protein Total Protein Albumin Prealbumin Triglycerides Cholesterol LDL Cholesterol Direct HDL Cholesterol PTH Intact Urine pH Urine WBC (Auto) Urine Creatinine Urine Total Protein Fluid Total Protein 3.0 L Vancomycin Trough Rheumatoid Factor Complement C4 Miscellaneous Test Crossmatch 01/13/17 01/13/17 01/13/17 12:17 15:50 17:30 WBC RBC Hgb Hct MCV MCH MCHC RDW Plt Count Lymph % (Auto) [place] % (Auto) Lymph # [place] # Baso # Seg Neutrophils % Seg Neuts % (Manual) Lymphocytes % (Manual) Monocytes % (Manual) Eosinophils % (Manual) Basophils % (Manual) Nucleated RBC % Seg Neutrophils # Seg Neutrophils # Man Lymphocytes # (Manual) Monocytes # (Manual) Eosinophils # (Manual) Basophils # (Manual) PT 15.4 H INR 1.16 H Fibrinogen dRVVT Confirm Interp Factor V Activity POC ABG pH POC ABG pCO2 POC ABG pO2 ABG pO2 ABG HCO3 ABG Base Excess ABG Hemoglobin Oxyhemoglobin Sodium Potassium Chloride Carbon Dioxide BUN Creatinine Glucose POC Glucose 168 H 110 H Lactic Acid Calcium Ionized Calcium Phosphorus Magnesium Direct Bilirubin AST ALT Alkaline Phosphatase Lactate Dehydrogenase Troponin T C-Reactive Protein Total Protein Albumin Prealbumin Triglycerides Cholesterol LDL Cholesterol Direct HDL Cholesterol PTH Intact Urine pH Urine WBC (Auto) Urine Creatinine Urine Total Protein Fluid Total Protein Vancomycin Trough Rheumatoid Factor Complement C4 Miscellaneous Test Crossmatch 01/13/17 01/14/17 01/14/17 23:42 05:24 05:30 WBC RBC Hgb Hct MCV MCH MCHC RDW Plt Count Lymph % (Auto) [place] % (Auto) Lymph # [place] # Baso # Seg Neutrophils % Seg Neuts % (Manual) Lymphocytes % (Manual) Monocytes % (Manual) Eosinophils % (Manual) Basophils % (Manual) Nucleated RBC % Seg Neutrophils # Seg Neutrophils # Man Lymphocytes # (Manual) Monocytes # (Manual) Eosinophils # (Manual) Basophils # (Manual) PT INR Fibrinogen dRVVT Confirm Interp Factor V Activity POC ABG pH POC ABG pCO2 POC ABG pO2 ABG pO2 ABG HCO3 ABG Base Excess ABG Hemoglobin Oxyhemoglobin Sodium Potassium Chloride Carbon Dioxide BUN 58 H Creatinine Glucose 114 H POC Glucose 155 H 121 H Lactic Acid Calcium Ionized Calcium Phosphorus Magnesium Direct Bilirubin AST ALT Alkaline Phosphatase Lactate Dehydrogenase Troponin T C-Reactive Protein Total Protein Albumin Prealbumin Triglycerides Cholesterol LDL Cholesterol Direct HDL Cholesterol PTH Intact Urine pH Urine WBC (Auto) Urine Creatinine Urine Total Protein Fluid Total Protein Vancomycin Trough Rheumatoid Factor Complement C4 Miscellaneous Test Crossmatch 01/14/17 01/14/17 01/15/17 12:48 17:36 00:15 WBC RBC Hgb Hct MCV MCH MCHC RDW Plt Count Lymph % (Auto) [place] % (Auto) Lymph # [place] # Baso # Seg Neutrophils % Seg Neuts % (Manual) Lymphocytes % (Manual) Monocytes % (Manual) Eosinophils % (Manual) Basophils % (Manual) Nucleated RBC % Seg Neutrophils # Seg Neutrophils # Man Lymphocytes # (Manual) Monocytes # (Manual) Eosinophils # (Manual) Basophils # (Manual) PT INR Fibrinogen dRVVT Confirm Interp Factor V Activity POC ABG pH POC ABG pCO2 POC ABG pO2 ABG pO2 ABG HCO3 ABG Base Excess ABG Hemoglobin Oxyhemoglobin Sodium Potassium Chloride Carbon Dioxide BUN Creatinine Glucose POC Glucose 130 H 135 H 132 H Lactic Acid Calcium Ionized Calcium Phosphorus Magnesium Direct Bilirubin AST ALT Alkaline Phosphatase Lactate Dehydrogenase Troponin T C-Reactive Protein Total Protein Albumin Prealbumin Triglycerides Cholesterol LDL Cholesterol Direct HDL Cholesterol PTH Intact Urine pH Urine WBC (Auto) Urine Creatinine Urine Total Protein Fluid Total Protein Vancomycin Trough Rheumatoid Factor Complement C4 Miscellaneous Test Crossmatch 01/15/17 01/15/17 01/15/17 05:01 11:55 12:45 WBC 16.2 H RBC 3.00 L Hgb 8.1 L Hct 25.4 L MCV MCH 27 L MCHC RDW 17.6 H Plt Count Lymph % (Auto) 11.7 L Mccormick % (Auto) 7.8 H Lymph # Mccormick # 1.3 H Baso # Seg Neutrophils % 80.1 H Seg Neuts % (Manual) Lymphocytes % (Manual) Monocytes % (Manual) Eosinophils % (Manual) Basophils % (Manual) Nucleated RBC % Seg Neutrophils # 13.0 H Seg Neutrophils # Man Lymphocytes # (Manual) Monocytes # (Manual) Eosinophils # (Manual) Basophils # (Manual) PT INR Fibrinogen dRVVT Confirm Interp Factor V Activity POC ABG pH POC ABG pCO2 POC ABG pO2 ABG pO2 ABG HCO3 ABG Base Excess ABG Hemoglobin Oxyhemoglobin Sodium Potassium Chloride Carbon Dioxide BUN Creatinine Glucose POC Glucose 126 H 125 H Lactic Acid Calcium Ionized Calcium Phosphorus Magnesium Direct Bilirubin AST ALT Alkaline Phosphatase Lactate Dehydrogenase Troponin T C-Reactive Protein Total Protein Albumin Prealbumin Triglycerides Cholesterol LDL Cholesterol Direct HDL Cholesterol PTH Intact Urine pH Urine WBC (Auto) Urine Creatinine Urine Total Protein Fluid Total Protein Vancomycin Trough Rheumatoid Factor Complement C4 Miscellaneous Test Crossmatch 01/15/17 01/15/17 01/15/17 12:45 17:31 23:39 WBC RBC Hgb Hct MCV MCH MCHC RDW Plt Count Lymph % (Auto) Mccormick % (Auto) Lymph # Mccormick # Baso # Seg Neutrophils % Seg Neuts % (Manual) Lymphocytes % (Manual) Monocytes % (Manual) Eosinophils % (Manual) Basophils % (Manual) Nucleated RBC % Seg Neutrophils # Seg Neutrophils # Man Lymphocytes # (Manual) Monocytes # (Manual) Eosinophils # (Manual) Basophils # (Manual) PT INR Fibrinogen dRVVT Confirm Interp Factor V Activity POC ABG pH POC ABG pCO2 POC ABG pO2 ABG pO2 ABG HCO3 ABG Base Excess ABG Hemoglobin Oxyhemoglobin Sodium 136 L Potassium Chloride Carbon Dioxide BUN 87 H Creatinine 1.7 H Glucose 108 H POC Glucose 129 H 112 H Lactic Acid Calcium Ionized Calcium Phosphorus Magnesium Direct Bilirubin AST ALT Alkaline Phosphatase Lactate Dehydrogenase Troponin T C-Reactive Protein Total Protein Albumin Prealbumin Triglycerides Cholesterol LDL Cholesterol Direct HDL Cholesterol PTH Intact Urine pH Urine WBC (Auto) Urine Creatinine Urine Total Protein Fluid Total Protein Vancomycin Trough Rheumatoid Factor Complement C4 Miscellaneous Test Crossmatch 01/16/17 01/16/17 01/16/17 05:23 11:42 12:32 WBC RBC Hgb Hct MCV MCH MCHC RDW Plt Count Lymph % (Auto) M[place]ormick % (Auto) Lymph # Mccormick # Baso # Seg Neutrophils % Seg Neuts % (Manual) Lymphocytes % (Manual) Monocytes % (Manual) Eosinophils % (Manual) Basophils % (Manual) Nucleated RBC % Seg Neutrophils # Seg Neutrophils # Man Lymphocytes # (Manual) Monocytes # (Manual) Eosinophils # (Manual) Basophils # (Manual) PT INR Fibrinogen dRVVT Confirm Interp Factor V Activity POC ABG pH 7.499 H POC ABG pCO2 30.9 L POC ABG pO2 51 L ABG pO2 ABG HCO3 ABG Base Excess ABG Hemoglobin Oxyhemoglobin Sodium Potassium Chloride Carbon Dioxide BUN Creatinine Glucose POC Glucose 118 H 133 H Lactic Acid Calcium Ionized Calcium Phosphorus Magnesium Direct Bilirubin AST ALT Alkaline Phosphatase Lactate Dehydrogenase Troponin T C-Reactive Protein Total Protein Albumin Prealbumin Triglycerides Cholesterol LDL Cholesterol Direct HDL Cholesterol PTH Intact Urine pH Urine WBC (Auto) Urine Creatinine Urine Total Protein Fluid Total Protein Vancomycin Trough Rheumatoid Factor Complement C4 Miscellaneous Test Crossmatch 01/16/17 01/16/17 01/16/17 17:52 23:57 Unknown WBC RBC Hgb Hct MCV MCH MCHC RDW Plt Count Lymph % (Auto) M[place]ormick % (Auto) Lymph # Mccormick # Baso # Seg Neutrophils % Seg Neuts % (Manual) Lymphocytes % (Manual) Monocytes % (Manual) Eosinophils % (Manual) Basophils % (Manual) Nucleated RBC % Seg Neutrophils # Seg Neutrophils # Man Lymphocytes # (Manual) Monocytes # (Manual) Eosinophils # (Manual) Basophils # (Manual) PT INR Fibrinogen dRVVT Confirm Interp Factor V Activity POC ABG pH POC ABG pCO2 POC ABG pO2 ABG pO2 ABG HCO3 ABG Base Excess ABG Hemoglobin Oxyhemoglobin Sodium 135 L Potassium Chloride Carbon Dioxide BUN 101 H Creatinine 1.8 H Glucose 117 H POC Glucose 130 H 143 H Lactic Acid Calcium Ionized Calcium Phosphorus 5.80 H Magnesium Direct Bilirubin AST ALT Alkaline Phosphatase Lactate Dehydrogenase Troponin T C-Reactive Protein Total Protein Albumin Prealbumin Triglycerides Cholesterol LDL Cholesterol Direct HDL Cholesterol PTH Intact Urine pH Urine WBC (Auto) Urine Creatinine Urine Total Protein Fluid Total Protein Vancomycin Trough Rheumatoid Factor Complement C4 Miscellaneous Test Crossmatch 01/17/17 01/17/17 01/17/17 05:30 05:46 11:49 WBC RBC Hgb Hct MCV MCH MCHC RDW Plt Count Lymph % (Auto) M[place]ormick % (Auto) Lymph # Mccormick # Baso # Seg Neutrophils % Seg Neuts % (Manual) Lymphocytes % (Manual) Monocytes % (Manual) Eosinophils % (Manual) Basophils % (Manual) Nucleated RBC % Seg Neutrophils # Seg Neutrophils # Man Lymphocytes # (Manual) Monocytes # (Manual) Eosinophils # (Manual) Basophils # (Manual) PT INR Fibrinogen dRVVT Confirm Interp Factor V Activity POC ABG pH POC ABG pCO2 POC ABG pO2 ABG pO2 ABG HCO3 ABG Base Excess ABG Hemoglobin Oxyhemoglobin Sodium 134 L Potassium Chloride 95.8 L Carbon Dioxide BUN 66 H Creatinine 1.3 H Glucose 138 H POC Glucose 147 H 124 H Lactic Acid Calcium Ionized Calcium Phosphorus Magnesium Direct Bilirubin AST ALT Alkaline Phosphatase 254 H Lactate Dehydrogenase Troponin T C-Reactive Protein Total Protein Albumin 1.3 L Prealbumin Triglycerides Cholesterol LDL Cholesterol Direct HDL Cholesterol PTH Intact Urine pH Urine WBC (Auto) Urine Creatinine Urine Total Protein Fluid Total Protein Vancomycin Trough Rheumatoid Factor Complement C4 Miscellaneous Test Crossmatch 01/17/17 01/17/17 01/18/17 17:30 23:41 05:15 WBC RBC Hgb Hct MCV MCH MCHC RDW Plt Count Lymph % (Auto) M[place]ormick % (Auto) Lymph # Mccormick # Baso # Seg Neutrophils % Seg Neuts % (Manual) Lymphocytes % (Manual) Monocytes % (Manual) Eosinophils % (Manual) Basophils % (Manual) Nucleated RBC % Seg Neutrophils # Seg Neutrophils # Man Lymphocytes # (Manual) Monocytes # (Manual) Eosinophils # (Manual) Basophils # (Manual) PT INR Fibrinogen dRVVT Confirm Interp Factor V Activity POC ABG pH POC ABG pCO2 POC ABG pO2 ABG pO2 ABG HCO3 ABG Base Excess ABG Hemoglobin Oxyhemoglobin Sodium Potassium Chloride Carbon Dioxide BUN 89 H Creatinine 1.7 H Glucose 118 H POC Glucose 137 H 119 H Lactic Acid Calcium Ionized Calcium Phosphorus Magnesium Direct Bilirubin AST ALT Alkaline Phosphatase Lactate Dehydrogenase Troponin T C-Reactive Protein Total Protein Albumin Prealbumin Triglycerides Cholesterol LDL Cholesterol Direct HDL Cholesterol PTH Intact Urine pH Urine WBC (Auto) Urine Creatinine Urine Total Protein Fluid Total Protein Vancomycin Trough Rheumatoid Factor Complement C4 Miscellaneous Test Crossmatch 01/18/17 01/18/17 01/18/17 05:19 12:16 18:11 WBC RBC Hgb Hct MCV MCH MCHC RDW Plt Count Lymph % (Auto) M[place]ormick % (Auto) Lymph # Mccormick # Baso # Seg Neutrophils % Seg Neuts % (Manual) Lymphocytes % (Manual) Monocytes % (Manual) Eosinophils % (Manual) Basophils % (Manual) Nucleated RBC % Seg Neutrophils # Seg Neutrophils # Man Lymphocytes # (Manual) Monocytes # (Manual) Eosinophils # (Manual) Basophils # (Manual) PT INR Fibrinogen dRVVT Confirm Interp Factor V Activity POC ABG pH POC ABG pCO2 POC ABG pO2 ABG pO2 ABG HCO3 ABG Base Excess ABG Hemoglobin Oxyhemoglobin Sodium Potassium Chloride Carbon Dioxide BUN Creatinine Glucose POC Glucose 134 H 188 H 113 H Lactic Acid Calcium Ionized Calcium Phosphorus Magnesium Direct Bilirubin AST ALT Alkaline Phosphatase Lactate Dehydrogenase Troponin T C-Reactive Protein Total Protein Albumin Prealbumin Triglycerides Cholesterol LDL Cholesterol Direct HDL Cholesterol PTH Intact Urine pH Urine WBC (Auto) Urine Creatinine Urine Total Protein Fluid Total Protein Vancomycin Trough Rheumatoid Factor Complement C4 Miscellaneous Test Crossmatch 01/19/17 01/19/17 01/19/17 00:00 05:30 05:36 WBC RBC Hgb Hct MCV MCH MCHC RDW Plt Count Lymph % (Auto) M[place]ormick % (Auto) Lymph # Mccormick # Baso # Seg Neutrophils % Seg Neuts % (Manual) Lymphocytes % (Manual) Monocytes % (Manual) Eosinophils % (Manual) Basophils % (Manual) Nucleated RBC % Seg Neutrophils # Seg Neutrophils # Man Lymphocytes # (Manual) Monocytes # (Manual) Eosinophils # (Manual) Basophils # (Manual) PT INR Fibrinogen dRVVT Confirm Interp Factor V Activity POC ABG pH POC ABG pCO2 POC ABG pO2 ABG pO2 ABG HCO3 ABG Base Excess ABG Hemoglobin Oxyhemoglobin Sodium Potassium Chloride Carbon Dioxide BUN 70 H Creatinine 1.5 H Glucose 121 H POC Glucose 137 H 155 H Lactic Acid Calcium Ionized Calcium Phosphorus 2.10 L D Magnesium Direct Bilirubin AST ALT Alkaline Phosphatase Lactate Dehydrogenase Troponin T C-Reactive Protein Total Protein Albumin Prealbumin Triglycerides Cholesterol LDL Cholesterol Direct HDL Cholesterol PTH Intact Urine pH Urine WBC (Auto) Urine Creatinine Urine Total Protein Fluid Total Protein Vancomycin Trough Rheumatoid Factor Complement C4 Miscellaneous Test Crossmatch 01/19/17 01/19/17 01/19/17 11:59 15:32 17:57 WBC RBC Hgb Hct MCV MCH MCHC RDW Plt Count Lymph % (Auto) M[place]ormick % (Auto) Lymph # Mccormick # Baso # Seg Neutrophils % Seg Neuts % (Manual) Lymphocytes % (Manual) Monocytes % (Manual) Eosinophils % (Manual) Basophils % (Manual) Nucleated RBC % Seg Neutrophils # Seg Neutrophils # Man Lymphocytes # (Manual) Monocytes # (Manual) Eosinophils # (Manual) Basophils # (Manual) PT INR Fibrinogen dRVVT Confirm Interp Factor V Activity POC ABG pH POC ABG pCO2 33.1 L POC ABG pO2 76 L ABG pO2 ABG HCO3 ABG Base Excess ABG Hemoglobin Oxyhemoglobin Sodium Potassium Chloride Carbon Dioxide BUN Creatinine Glucose POC Glucose 156 H 129 H Lactic Acid Calcium Ionized Calcium Phosphorus Magnesium Direct Bilirubin AST ALT Alkaline Phosphatase Lactate Dehydrogenase Troponin T C-Reactive Protein Total Protein Albumin Prealbumin Triglycerides Cholesterol LDL Cholesterol Direct HDL Cholesterol PTH Intact Urine pH Urine WBC (Auto) Urine Creatinine Urine Total Protein Fluid Total Protein Vancomycin Trough Rheumatoid Factor Complement C4 Miscellaneous Test Crossmatch 01/19/17 01/20/17 01/20/17 23:49 04:00 05:21 WBC RBC Hgb Hct MCV MCH MCHC RDW Plt Count Lymph % (Auto) M[place]ormick % (Auto) Lymph # Mccormick # Baso # Seg Neutrophils % Seg Neuts % (Manual) Lymphocytes % (Manual) Monocytes % (Manual) Eosinophils % (Manual) Basophils % (Manual) Nucleated RBC % Seg Neutrophils # Seg Neutrophils # Man Lymphocytes # (Manual) Monocytes # (Manual) Eosinophils # (Manual) Basophils # (Manual) PT INR Fibrinogen dRVVT Confirm Interp Factor V Activity POC ABG pH POC ABG pCO2 POC ABG pO2 ABG pO2 ABG HCO3 ABG Base Excess ABG Hemoglobin Oxyhemoglobin Sodium Potassium Chloride Carbon Dioxide BUN 96 H Creatinine 1.9 H Glucose 106 H POC Glucose 125 H 130 H Lactic Acid Calcium Ionized Calcium Phosphorus 2.40 L Magnesium Direct Bilirubin AST ALT Alkaline Phosphatase Lactate Dehydrogenase Troponin T C-Reactive Protein Total Protein Albumin Prealbumin Triglycerides Cholesterol LDL Cholesterol Direct HDL Cholesterol PTH Intact Urine pH Urine WBC (Auto) Urine Creatinine Urine Total Protein Fluid Total Protein Vancomycin Trough Rheumatoid Factor Complement C4 Miscellaneous Test Crossmatch 01/20/17 01/20/17 01/20/17 11:58 12:17 17:26 WBC RBC Hgb Hct MCV MCH MCHC RDW Plt Count Lymph % (Auto) M[place]ormick % (Auto) Lymph # Mccormick # Baso # Seg Neutrophils % Seg Neuts % (Manual) Lymphocytes % (Manual) Monocytes % (Manual) Eosinophils % (Manual) Basophils % (Manual) Nucleated RBC % Seg Neutrophils # Seg Neutrophils # Man Lymphocytes # (Manual) Monocytes # (Manual) Eosinophils # (Manual) Basophils # (Manual) PT INR Fibrinogen dRVVT Confirm Interp Factor V Activity POC ABG pH POC ABG pCO2 POC ABG pO2 70 L ABG pO2 ABG HCO3 ABG Base Excess ABG Hemoglobin Oxyhemoglobin Sodium Potassium Chloride Carbon Dioxide BUN Creatinine Glucose POC Glucose 118 H 154 H Lactic Acid Calcium Ionized Calcium Phosphorus Magnesium Direct Bilirubin AST ALT Alkaline Phosphatase Lactate Dehydrogenase Troponin T C-Reactive Protein Total Protein Albumin Prealbumin Triglycerides Cholesterol LDL Cholesterol Direct HDL Cholesterol PTH Intact Urine pH Urine WBC (Auto) Urine Creatinine Urine Total Protein Fluid Total Protein Vancomycin Trough Rheumatoid Factor Complement C4 Miscellaneous Test Crossmatch 01/21/17 01/21/17 01/21/17 04:00 04:56 11:46 WBC RBC Hgb Hct MCV MCH MCHC RDW Plt Count Lymph % (Auto) M[place]ormick % (Auto) Lymph # Mccormick # Baso # Seg Neutrophils % Seg Neuts % (Manual) Lymphocytes % (Manual) Monocytes % (Manual) Eosinophils % (Manual) Basophils % (Manual) Nucleated RBC % Seg Neutrophils # Seg Neutrophils # Man Lymphocytes # (Manual) Monocytes # (Manual) Eosinophils # (Manual) Basophils # (Manual) PT INR Fibrinogen dRVVT Confirm Interp Factor V Activity POC ABG pH POC ABG pCO2 POC ABG pO2 ABG pO2 ABG HCO3 ABG Base Excess ABG Hemoglobin Oxyhemoglobin Sodium Potassium 3.5 L Chloride 97.4 L Carbon Dioxide BUN 66 H Creatinine 1.4 H Glucose POC Glucose 116 H 106 H Lactic Acid Calcium Ionized Calcium Phosphorus 2.10 L Magnesium Direct Bilirubin AST ALT Alkaline Phosphatase Lactate Dehydrogenase Troponin T C-Reactive Protein Total Protein Albumin Prealbumin Triglycerides Cholesterol LDL Cholesterol Direct HDL Cholesterol PTH Intact Urine pH Urine WBC (Auto) Urine Creatinine Urine Total Protein Fluid Total Protein Vancomycin Trough Rheumatoid Factor Complement C4 Miscellaneous Test Crossmatch 01/21/17 01/21/17 01/22/17 17:25 23:49 05:35 WBC RBC Hgb Hct MCV MCH MCHC RDW Plt Count Lymph % (Auto) M[place]ormick % (Auto) Lymph # Mccormick # Baso # Seg Neutrophils % Seg Neuts % (Manual) Lymphocytes % (Manual) Monocytes % (Manual) Eosinophils % (Manual) Basophils % (Manual) Nucleated RBC % Seg Neutrophils # Seg Neutrophils # Man Lymphocytes # (Manual) Monocytes # (Manual) Eosinophils # (Manual) Basophils # (Manual) PT INR Fibrinogen dRVVT Confirm Interp Factor V Activity POC ABG pH POC ABG pCO2 POC ABG pO2 ABG pO2 ABG HCO3 ABG Base Excess ABG Hemoglobin Oxyhemoglobin Sodium Potassium Chloride Carbon Dioxide BUN Creatinine Glucose POC Glucose 106 H 133 H 107 H Lactic Acid Calcium Ionized Calcium Phosphorus Magnesium Direct Bilirubin AST ALT Alkaline Phosphatase Lactate Dehydrogenase Troponin T C-Reactive Protein Total Protein Albumin Prealbumin Triglycerides Cholesterol LDL Cholesterol Direct HDL Cholesterol PTH Intact Urine pH Urine WBC (Auto) Urine Creatinine Urine Total Protein Fluid Total Protein Vancomycin Trough Rheumatoid Factor Complement C4 Miscellaneous Test Crossmatch 01/22/17 01/22/17 01/22/17 07:20 07:20 11:31 WBC RBC 2.75 L Hgb 7.5 L Hct 22.7 L MCV MCH 27 L MCHC RDW 17.5 H Plt Count Lymph % (Auto) M[place]ormick % (Auto) Lymph # Mccormick # Baso # Seg Neutrophils % Seg Neuts % (Manual) Lymphocytes % (Manual) Monocytes % (Manual) Eosinophils % (Manual) Basophils % (Manual) Nucleated RBC % Seg Neutrophils # Seg Neutrophils # Man Lymphocytes # (Manual) Monocytes # (Manual) Eosinophils # (Manual) Basophils # (Manual) PT INR Fibrinogen dRVVT Confirm Interp Factor V Activity POC ABG pH POC ABG pCO2 POC ABG pO2 ABG pO2 ABG HCO3 ABG Base Excess ABG Hemoglobin Oxyhemoglobin Sodium Potassium 3.3 L Chloride Carbon Dioxide BUN 42 H Creatinine Glucose 105 H POC Glucose 124 H Lactic Acid Calcium Ionized Calcium Phosphorus 1.70 L Magnesium Direct Bilirubin AST ALT Alkaline Phosphatase Lactate Dehydrogenase Troponin T C-Reactive Protein Total Protein Albumin Prealbumin Triglycerides Cholesterol LDL Cholesterol Direct HDL Cholesterol PTH Intact Urine pH Urine WBC (Auto) Urine Creatinine Urine Total Protein Fluid Total Protein Vancomycin Trough Rheumatoid Factor Complement C4 Miscellaneous Test Crossmatch 01/22/17 01/22/17 01/23/17 17:16 23:35 05:35 WBC RBC Hgb Hct MCV MCH MCHC RDW Plt Count Lymph % (Auto) M[place]ormick % (Auto) Lymph # Mccormick # Baso # Seg Neutrophils % Seg Neuts % (Manual) Lymphocytes % (Manual) Monocytes % (Manual) Eosinophils % (Manual) Basophils % (Manual) Nucleated RBC % Seg Neutrophils # Seg Neutrophils # Man Lymphocytes # (Manual) Monocytes # (Manual) Eosinophils # (Manual) Basophils # (Manual) PT INR Fibrinogen dRVVT Confirm Interp Factor V Activity POC ABG pH POC ABG pCO2 POC ABG pO2 ABG pO2 ABG HCO3 ABG Base Excess ABG Hemoglobin Oxyhemoglobin Sodium Potassium Chloride Carbon Dioxide BUN Creatinine Glucose POC Glucose 135 H 120 H 111 H Lactic Acid Calcium Ionized Calcium Phosphorus Magnesium Direct Bilirubin AST ALT Alkaline Phosphatase Lactate Dehydrogenase Troponin T C-Reactive Protein Total Protein Albumin Prealbumin Triglycerides Cholesterol LDL Cholesterol Direct HDL Cholesterol PTH Intact Urine pH Urine WBC (Auto) Urine Creatinine Urine Total Protein Fluid Total Protein Vancomycin Trough Rheumatoid Factor Complement C4 Miscellaneous Test Crossmatch 01/23/17 01/23/17 01/23/17 06:10 17:27 23:44 WBC RBC Hgb Hct MCV MCH MCHC RDW Plt Count Lymph % (Auto) M[place]ormick % (Auto) Lymph # Mccormick # Baso # Seg Neutrophils % Seg Neuts % (Manual) Lymphocytes % (Manual) Monocytes % (Manual) Eosinophils % (Manual) Basophils % (Manual) Nucleated RBC % Seg Neutrophils # Seg Neutrophils # Man Lymphocytes # (Manual) Monocytes # (Manual) Eosinophils # (Manual) Basophils # (Manual) PT INR Fibrinogen dRVVT Confirm Interp Factor V Activity POC ABG pH POC ABG pCO2 POC ABG pO2 ABG pO2 ABG HCO3 ABG Base Excess ABG Hemoglobin Oxyhemoglobin Sodium Potassium 3.3 L Chloride Carbon Dioxide BUN 66 H Creatinine 1.3 H Glucose 109 H POC Glucose 120 H 115 H Lactic Acid Calcium Ionized Calcium Phosphorus 2.20 L D Magnesium Direct Bilirubin AST ALT Alkaline Phosphatase Lactate Dehydrogenase Troponin T C-Reactive Protein Total Protein Albumin Prealbumin Triglycerides Cholesterol LDL Cholesterol Direct HDL Cholesterol PTH Intact Urine pH Urine WBC (Auto) Urine Creatinine Urine Total Protein Fluid Total Protein Vancomycin Trough Rheumatoid Factor Complement C4 Miscellaneous Test Crossmatch 01/24/17 01/24/17 01/24/17 05:19 05:50 12:19 WBC RBC Hgb Hct MCV MCH MCHC RDW Plt Count Lymph % (Auto) M[place]ormick % (Auto) Lymph # Mccormick # Baso # Seg Neutrophils % Seg Neuts % (Manual) Lymphocytes % (Manual) Monocytes % (Manual) Eosinophils % (Manual) Basophils % (Manual) Nucleated RBC % Seg Neutrophils # Seg Neutrophils # Man Lymphocytes # (Manual) Monocytes # (Manual) Eosinophils # (Manual) Basophils # (Manual) PT INR Fibrinogen dRVVT Confirm Interp Factor V Activity POC ABG pH POC ABG pCO2 POC ABG pO2 ABG pO2 ABG HCO3 ABG Base Excess ABG Hemoglobin Oxyhemoglobin Sodium Potassium Chloride Carbon Dioxide BUN 47 H Creatinine Glucose 117 H POC Glucose 126 H 119 H Lactic Acid Calcium Ionized Calcium Phosphorus 2.30 L Magnesium 1.60 L Direct Bilirubin AST ALT Alkaline Phosphatase Lactate Dehydrogenase Troponin T C-Reactive Protein Total Protein Albumin Prealbumin Triglycerides Cholesterol LDL Cholesterol Direct HDL Cholesterol PTH Intact Urine pH Urine WBC (Auto) Urine Creatinine Urine Total Protein Fluid Total Protein Vancomycin Trough Rheumatoid Factor Complement C4 Miscellaneous Test Crossmatch 01/24/17 01/25/17 01/25/17 17:08 00:37 04:00 WBC RBC Hgb Hct MCV MCH MCHC RDW Plt Count Lymph % (Auto) M[place]ormick % (Auto) Lymph # Mccormick # Baso # Seg Neutrophils % Seg Neuts % (Manual) Lymphocytes % (Manual) Monocytes % (Manual) Eosinophils % (Manual) Basophils % (Manual) Nucleated RBC % Seg Neutrophils # Seg Neutrophils # Man Lymphocytes # (Manual) Monocytes # (Manual) Eosinophils # (Manual) Basophils # (Manual) PT INR Fibrinogen dRVVT Confirm Interp Factor V Activity POC ABG pH POC ABG pCO2 POC ABG pO2 ABG pO2 ABG HCO3 ABG Base Excess ABG Hemoglobin Oxyhemoglobin Sodium Potassium Chloride Carbon Dioxide BUN 72 H Creatinine 1.3 H Glucose POC Glucose 127 H 110 H Lactic Acid Calcium Ionized Calcium Phosphorus Magnesium Direct Bilirubin AST ALT Alkaline Phosphatase Lactate Dehydrogenase Troponin T C-Reactive Protein Total Protein Albumin Prealbumin Triglycerides Cholesterol LDL Cholesterol Direct HDL Cholesterol PTH Intact Urine pH Urine WBC (Auto) Urine Creatinine Urine Total Protein Fluid Total Protein Vancomycin Trough Rheumatoid Factor Complement C4 Miscellaneous Test Crossmatch 01/25/17 01/25/17 01/25/17 04:00 11:15 13:05 WBC RBC 2.49 L Hgb 6.7 L Hct 20.9 L MCV MCH 27 L MCHC RDW 18.8 H Plt Count Lymph % (Auto) M[place]ormick % (Auto) 10.1 H Lymph # Mccormick # 1.0 H Baso # Seg Neutrophils % Seg Neuts % (Manual) Lymphocytes % (Manual) Monocytes % (Manual) Eosinophils % (Manual) Basophils % (Manual) Nucleated RBC % Seg Neutrophils # Seg Neutrophils # Man Lymphocytes # (Manual) Monocytes # (Manual) Eosinophils # (Manual) Basophils # (Manual) PT INR Fibrinogen dRVVT Confirm Interp Factor V Activity POC ABG pH POC ABG pCO2 POC ABG pO2 ABG pO2 ABG HCO3 ABG Base Excess ABG Hemoglobin Oxyhemoglobin Sodium Potassium Chloride Carbon Dioxide BUN Creatinine Glucose POC Glucose 128 H Lactic Acid Calcium Ionized Calcium Phosphorus Magnesium Direct Bilirubin AST ALT Alkaline Phosphatase Lactate Dehydrogenase Troponin T C-Reactive Protein Total Protein Albumin Prealbumin Triglycerides Cholesterol LDL Cholesterol Direct HDL Cholesterol PTH Intact Urine pH Urine WBC (Auto) Urine Creatinine Urine Total Protein Fluid Total Protein Vancomycin Trough Rheumatoid Factor Complement C4 Miscellaneous Test Crossmatch See Detail 01/25/17 01/25/17 01/26/17 18:02 23:07 01:20 WBC RBC Hgb Hct MCV MCH MCHC RDW Plt Count Lymph % (Auto) M[place]ick % (Auto) Lymph # Mccormick # Baso # Seg Neutrophils % Seg Neuts % (Manual) Lymphocytes % (Manual) Monocytes % (Manual) Eosinophils % (Manual) Basophils % (Manual) Nucleated RBC % Seg Neutrophils # Seg Neutrophils # Man Lymphocytes # (Manual) Monocytes # (Manual) Eosinophils # (Manual) Basophils # (Manual) PT INR Fibrinogen dRVVT Confirm Interp Factor V Activity POC ABG pH POC ABG pCO2 POC ABG pO2 ABG pO2 ABG HCO3 ABG Base Excess ABG Hemoglobin Oxyhemoglobin Sodium Potassium Chloride Carbon Dioxide BUN Creatinine Glucose POC Glucose 120 H 123 H 112 H Lactic Acid Calcium Ionized Calcium Phosphorus Magnesium Direct Bilirubin AST ALT Alkaline Phosphatase Lactate Dehydrogenase Troponin T C-Reactive Protein Total Protein Albumin Prealbumin Triglycerides Cholesterol LDL Cholesterol Direct HDL Cholesterol PTH Intact Urine pH Urine WBC (Auto) Urine Creatinine Urine Total Protein Fluid Total Protein Vancomycin Trough Rheumatoid Factor Complement C4 Miscellaneous Test Crossmatch 01/26/17 01/26/17 01/26/17 04:20 04:20 11:23 WBC 13.1 H RBC 3.28 L Hgb 9.0 L Hct 26.9 L D MCV MCH 27 L MCHC RDW 17.2 H Plt Count Lymph % (Auto) M[place]ormick % (Auto) 9.0 H Lymph # Mccormick # 1.2 H Baso # Seg Neutrophils % 73.1 H Seg Neuts % (Manual) Lymphocytes % (Manual) Monocytes % (Manual) Eosinophils % (Manual) Basophils % (Manual) Nucleated RBC % Seg Neutrophils # 9.6 H Seg Neutrophils # Man Lymphocytes # (Manual) Monocytes # (Manual) Eosinophils # (Manual) Basophils # (Manual) PT INR Fibrinogen dRVVT Confirm Interp Factor V Activity POC ABG pH POC ABG pCO2 POC ABG pO2 ABG pO2 ABG HCO3 ABG Base Excess ABG Hemoglobin Oxyhemoglobin Sodium Potassium Chloride Carbon Dioxide BUN 51 H Creatinine Glucose 117 H POC Glucose 125 H Lactic Acid Calcium Ionized Calcium Phosphorus Magnesium Direct Bilirubin AST ALT Alkaline Phosphatase Lactate Dehydrogenase Troponin T C-Reactive Protein Total Protein Albumin Prealbumin Triglycerides Cholesterol LDL Cholesterol Direct HDL Cholesterol PTH Intact Urine pH Urine WBC (Auto) Urine Creatinine Urine Total Protein Fluid Total Protein Vancomycin Trough Rheumatoid Factor Complement C4 Miscellaneous Test Crossmatch 01/26/17 01/27/17 01/27/17 17:11 00:30 04:00 WBC RBC Hgb Hct MCV MCH MCHC RDW Plt Count Lymph % (Auto) M[place]ormick % (Auto) Lymph # Mccormick # Baso # Seg Neutrophils % Seg Neuts % (Manual) Lymphocytes % (Manual) Monocytes % (Manual) Eosinophils % (Manual) Basophils % (Manual) Nucleated RBC % Seg Neutrophils # Seg Neutrophils # Man Lymphocytes # (Manual) Monocytes # (Manual) Eosinophils # (Manual) Basophils # (Manual) PT INR Fibrinogen dRVVT Confirm Interp Factor V Activity POC ABG pH POC ABG pCO2 POC ABG pO2 ABG pO2 ABG HCO3 ABG Base Excess ABG Hemoglobin Oxyhemoglobin Sodium Potassium Chloride 97.7 L Carbon Dioxide 21 L BUN 79 H Creatinine 1.7 H D Glucose 112 H POC Glucose 133 H 135 H Lactic Acid Calcium Ionized Calcium Phosphorus 5.00 H D Magnesium Direct Bilirubin AST ALT Alkaline Phosphatase Lactate Dehydrogenase Troponin T C-Reactive Protein Total Protein Albumin Prealbumin Triglycerides Cholesterol LDL Cholesterol Direct HDL Cholesterol PTH Intact Urine pH Urine WBC (Auto) Urine Creatinine Urine Total Protein Fluid Total Protein Vancomycin Trough Rheumatoid Factor Complement C4 Miscellaneous Test Crossmatch 01/27/17 01/27/17 01/27/17 05:12 12:18 17:25 WBC RBC Hgb Hct MCV MCH MCHC RDW Plt Count Lymph % (Auto) [place] % (Auto) Lymph # M[place]ormick # Baso # Seg Neutrophils % Seg Neuts % (Manual) Lymphocytes % (Manual) Monocytes % (Manual) Eosinophils % (Manual) Basophils % (Manual) Nucleated RBC % Seg Neutrophils # Seg Neutrophils # Man Lymphocytes # (Manual) Monocytes # (Manual) Eosinophils # (Manual) Basophils # (Manual) PT INR Fibrinogen dRVVT Confirm Interp Factor V Activity POC ABG pH POC ABG pCO2 POC ABG pO2 ABG pO2 ABG HCO3 ABG Base Excess ABG Hemoglobin Oxyhemoglobin Sodium Potassium Chloride Carbon Dioxide BUN Creatinine Glucose POC Glucose 116 H 153 H 152 H Lactic Acid Calcium Ionized Calcium Phosphorus Magnesium Direct Bilirubin AST ALT Alkaline Phosphatase Lactate Dehydrogenase Troponin T C-Reactive Protein Total Protein Albumin Prealbumin Triglycerides Cholesterol LDL Cholesterol Direct HDL Cholesterol PTH Intact Urine pH Urine WBC (Auto) Urine Creatinine Urine Total Protein Fluid Total Protein Vancomycin Trough Rheumatoid Factor Complement C4 Miscellaneous Test Crossmatch 01/27/17 01/28/17 01/28/17 23:42 04:00 04:00 WBC 14.4 H RBC 2.82 L Hgb 7.4 L Hct 23.5 L MCV MCH 26 L MCHC RDW 17.6 H Plt Count Lymph % (Auto) 10.2 L M[place]ick % (Auto) 11.0 H Lymph # M[place]ick # 1.6 H Baso # Seg Neutrophils % 78.0 H Seg Neuts % (Manual) Lymphocytes % (Manual) Monocytes % (Manual) Eosinophils % (Manual) Basophils % (Manual) Nucleated RBC % Seg Neutrophils # 11.3 H Seg Neutrophils # Man Lymphocytes # (Manual) Monocytes # (Manual) Eosinophils # (Manual) Basophils # (Manual) PT INR Fibrinogen dRVVT Confirm Interp Factor V Activity POC ABG pH POC ABG pCO2 POC ABG pO2 ABG pO2 ABG HCO3 ABG Base Excess ABG Hemoglobin Oxyhemoglobin Sodium Potassium Chloride Carbon Dioxide BUN 55 H Creatinine 1.3 H Glucose 114 H POC Glucose 121 H Lactic Acid Calcium Ionized Calcium Phosphorus Magnesium Direct Bilirubin AST ALT Alkaline Phosphatase Lactate Dehydrogenase Troponin T C-Reactive Protein Total Protein Albumin 1.4 L Prealbumin Triglycerides Cholesterol LDL Cholesterol Direct HDL Cholesterol PTH Intact Urine pH Urine WBC (Auto) Urine Creatinine Urine Total Protein Fluid Total Protein Vancomycin Trough Rheumatoid Factor Complement C4 Miscellaneous Test Crossmatch 01/28/17 01/28/17 01/29/17 04:59 12:30 00:02 WBC RBC Hgb Hct MCV MCH MCHC RDW Plt Count Lymph % (Auto) [place] % (Auto) Lymph # [place] # Baso # Seg Neutrophils % Seg Neuts % (Manual) Lymphocytes % (Manual) Monocytes % (Manual) Eosinophils % (Manual) Basophils % (Manual) Nucleated RBC % Seg Neutrophils # Seg Neutrophils # Man Lymphocytes # (Manual) Monocytes # (Manual) Eosinophils # (Manual) Basophils # (Manual) PT INR Fibrinogen dRVVT Confirm Interp Factor V Activity POC ABG pH POC ABG pCO2 POC ABG pO2 ABG pO2 ABG HCO3 ABG Base Excess ABG Hemoglobin Oxyhemoglobin Sodium Potassium Chloride Carbon Dioxide BUN Creatinine Glucose POC Glucose 126 H 119 H 138 H Lactic Acid Calcium Ionized Calcium Phosphorus Magnesium Direct Bilirubin AST ALT Alkaline Phosphatase Lactate Dehydrogenase Troponin T C-Reactive Protein Total Protein Albumin Prealbumin Triglycerides Cholesterol LDL Cholesterol Direct HDL Cholesterol PTH Intact Urine pH Urine WBC (Auto) Urine Creatinine Urine Total Protein Fluid Total Protein Vancomycin Trough Rheumatoid Factor Complement C4 Miscellaneous Test Crossmatch 01/29/17 01/29/17 01/29/17 04:58 06:15 11:35 WBC RBC Hgb Hct MCV MCH MCHC RDW Plt Count Lymph % (Auto) [place] % (Auto) Lymph # [place] # Baso # Seg Neutrophils % Seg Neuts % (Manual) Lymphocytes % (Manual) Monocytes % (Manual) Eosinophils % (Manual) Basophils % (Manual) Nucleated RBC % Seg Neutrophils # Seg Neutrophils # Man Lymphocytes # (Manual) Monocytes # (Manual) Eosinophils # (Manual) Basophils # (Manual) PT INR Fibrinogen dRVVT Confirm Interp Factor V Activity POC ABG pH POC ABG pCO2 POC ABG pO2 ABG pO2 ABG HCO3 ABG Base Excess ABG Hemoglobin Oxyhemoglobin Sodium Potassium Chloride Carbon Dioxide BUN 85 H Creatinine 1.7 H Glucose 105 H POC Glucose 114 H 110 H Lactic Acid Calcium Ionized Calcium Phosphorus Magnesium 2.40 H Direct Bilirubin AST ALT Alkaline Phosphatase Lactate Dehydrogenase Troponin T C-Reactive Protein Total Protein Albumin Prealbumin Triglycerides Cholesterol LDL Cholesterol Direct HDL Cholesterol PTH Intact Urine pH Urine WBC (Auto) Urine Creatinine Urine Total Protein Fluid Total Protein Vancomycin Trough Rheumatoid Factor Complement C4 Miscellaneous Test Crossmatch 01/29/17 01/29/17 01/30/17 18:24 23:41 05:12 WBC RBC Hgb Hct MCV MCH MCHC RDW Plt Count Lymph % (Auto) [place] % (Auto) Lymph # [place] # Baso # Seg Neutrophils % Seg Neuts % (Manual) Lymphocytes % (Manual) Monocytes % (Manual) Eosinophils % (Manual) Basophils % (Manual) Nucleated RBC % Seg Neutrophils # Seg Neutrophils # Man Lymphocytes # (Manual) Monocytes # (Manual) Eosinophils # (Manual) Basophils # (Manual) PT INR Fibrinogen dRVVT Confirm Interp Factor V Activity POC ABG pH POC ABG pCO2 POC ABG pO2 ABG pO2 ABG HCO3 ABG Base Excess ABG Hemoglobin Oxyhemoglobin Sodium Potassium Chloride Carbon Dioxide BUN Creatinine Glucose POC Glucose 109 H 134 H 109 H Lactic Acid Calcium Ionized Calcium Phosphorus Magnesium Direct Bilirubin AST ALT Alkaline Phosphatase Lactate Dehydrogenase Troponin T C-Reactive Protein Total Protein Albumin Prealbumin Triglycerides Cholesterol LDL Cholesterol Direct HDL Cholesterol PTH Intact Urine pH Urine WBC (Auto) Urine Creatinine Urine Total Protein Fluid Total Protein Vancomycin Trough Rheumatoid Factor Complement C4 Miscellaneous Test Crossmatch 01/30/17 01/30/17 01/30/17 11:26 17:43 23:39 WBC RBC Hgb Hct MCV MCH MCHC RDW Plt Count Lymph % (Auto) [place] % (Auto) Lymph # [place] # Baso # Seg Neutrophils % Seg Neuts % (Manual) Lymphocytes % (Manual) Monocytes % (Manual) Eosinophils % (Manual) Basophils % (Manual) Nucleated RBC % Seg Neutrophils # Seg Neutrophils # Man Lymphocytes # (Manual) Monocytes # (Manual) Eosinophils # (Manual) Basophils # (Manual) PT INR Fibrinogen dRVVT Confirm Interp Factor V Activity POC ABG pH POC ABG pCO2 POC ABG pO2 ABG pO2 ABG HCO3 ABG Base Excess ABG Hemoglobin Oxyhemoglobin Sodium Potassium Chloride Carbon Dioxide BUN Creatinine Glucose POC Glucose 135 H 143 H 122 H Lactic Acid Calcium Ionized Calcium Phosphorus Magnesium Direct Bilirubin AST ALT Alkaline Phosphatase Lactate Dehydrogenase Troponin T C-Reactive Protein Total Protein Albumin Prealbumin Triglycerides Cholesterol LDL Cholesterol Direct HDL Cholesterol PTH Intact Urine pH Urine WBC (Auto) Urine Creatinine Urine Total Protein Fluid Total Protein Vancomycin Trough Rheumatoid Factor Complement C4 Miscellaneous Test Crossmatch 01/31/17 01/31/17 01/31/17 04:00 05:40 11:12 WBC RBC Hgb Hct MCV MCH MCHC RDW Plt Count Lymph % (Auto) [place] % (Auto) Lymph # [place] # Baso # Seg Neutrophils % Seg Neuts % (Manual) Lymphocytes % (Manual) Monocytes % (Manual) Eosinophils % (Manual) Basophils % (Manual) Nucleated RBC % Seg Neutrophils # Seg Neutrophils # Man Lymphocytes # (Manual) Monocytes # (Manual) Eosinophils # (Manual) Basophils # (Manual) PT INR Fibrinogen dRVVT Confirm Interp Factor V Activity POC ABG pH POC ABG pCO2 POC ABG pO2 ABG pO2 ABG HCO3 ABG Base Excess ABG Hemoglobin Oxyhemoglobin Sodium Potassium Chloride Carbon Dioxide BUN 78 H Creatinine 1.5 H Glucose 108 H POC Glucose 123 H Lactic Acid Calcium Ionized Calcium Phosphorus Magnesium Direct Bilirubin AST ALT Alkaline Phosphatase Lactate Dehydrogenase Troponin T C-Reactive Protein 8.10 H Total Protein Albumin Prealbumin Triglycerides Cholesterol LDL Cholesterol Direct HDL Cholesterol PTH Intact Urine pH Urine WBC (Auto) Urine Creatinine Urine Total Protein Fluid Total Protein Vancomycin Trough Rheumatoid Factor Complement C4 Miscellaneous Test Crossmatch 01/31/17 01/31/17 01/31/17 11:16 17:45 17:50 WBC RBC Hgb Hct MCV MCH MCHC RDW Plt Count Lymph % (Auto) [place] % (Auto) Lymph # [place] # Baso # Seg Neutrophils % Seg Neuts % (Manual) Lymphocytes % (Manual) Monocytes % (Manual) Eosinophils % (Manual) Basophils % (Manual) Nucleated RBC % Seg Neutrophils # Seg Neutrophils # Man Lymphocytes # (Manual) Monocytes # (Manual) Eosinophils # (Manual) Basophils # (Manual) PT INR Fibrinogen dRVVT Confirm Interp Factor V Activity POC ABG pH POC ABG pCO2 POC ABG pO2 ABG pO2 ABG HCO3 ABG Base Excess ABG Hemoglobin Oxyhemoglobin Sodium Potassium Chloride Carbon Dioxide BUN Creatinine Glucose POC Glucose 119 H 111 H Lactic Acid Calcium Ionized Calcium Phosphorus Magnesium Direct Bilirubin AST ALT Alkaline Phosphatase Lactate Dehydrogenase Troponin T C-Reactive Protein Total Protein Albumin Prealbumin Triglycerides Cholesterol LDL Cholesterol Direct HDL Cholesterol PTH Intact 6.76 L Urine pH Urine WBC (Auto) Urine Creatinine Urine Total Protein Fluid Total Protein Vancomycin Trough Rheumatoid Factor Complement C4 Miscellaneous Test Crossmatch 01/31/17 02/01/17 02/01/17 23:19 05:42 09:24 WBC RBC Hgb Hct MCV MCH MCHC RDW Plt Count Lymph % (Auto) [place] % (Auto) Lymph # [place] # Baso # Seg Neutrophils % Seg Neuts % (Manual) Lymphocytes % (Manual) Monocytes % (Manual) Eosinophils % (Manual) Basophils % (Manual) Nucleated RBC % Seg Neutrophils # Seg Neutrophils # Man Lymphocytes # (Manual) Monocytes # (Manual) Eosinophils # (Manual) Basophils # (Manual) PT INR Fibrinogen dRVVT Confirm Interp Factor V Activity POC ABG pH POC ABG pCO2 POC ABG pO2 ABG pO2 ABG HCO3 ABG Base Excess ABG Hemoglobin Oxyhemoglobin Sodium Potassium Chloride Carbon Dioxide BUN Creatinine Glucose POC Glucose 118 H 122 H Lactic Acid Calcium Ionized Calcium Phosphorus Magnesium 2.60 H Direct Bilirubin AST ALT Alkaline Phosphatase Lactate Dehydrogenase Troponin T C-Reactive Protein Total Protein Albumin Prealbumin Triglycerides Cholesterol LDL Cholesterol Direct HDL Cholesterol PTH Intact Urine pH Urine WBC (Auto) Urine Creatinine Urine Total Protein Fluid Total Protein Vancomycin Trough Rheumatoid Factor Complement C4 Miscellaneous Test Crossmatch 02/01/17 02/01/17 02/02/17 09:24 12:15 07:40 WBC RBC Hgb Hct MCV MCH MCHC RDW Plt Count Lymph % (Auto) [place] % (Auto) Lymph # [place] # Baso # Seg Neutrophils % Seg Neuts % (Manual) Lymphocytes % (Manual) Monocytes % (Manual) Eosinophils % (Manual) Basophils % (Manual) Nucleated RBC % Seg Neutrophils # Seg Neutrophils # Man Lymphocytes # (Manual) Monocytes # (Manual) Eosinophils # (Manual) Basophils # (Manual) PT INR Fibrinogen dRVVT Confirm Interp Factor V Activity POC ABG pH POC ABG pCO2 POC ABG pO2 ABG pO2 ABG HCO3 ABG Base Excess ABG Hemoglobin Oxyhemoglobin Sodium Potassium Chloride Carbon Dioxide BUN 102 H 72 H Creatinine 1.9 H 1.5 H Glucose 120 H POC Glucose 156 H Lactic Acid Calcium Ionized Calcium Phosphorus Magnesium Direct Bilirubin AST ALT Alkaline Phosphatase Lactate Dehydrogenase Troponin T C-Reactive Protein Total Protein Albumin Prealbumin Triglycerides Cholesterol LDL Cholesterol Direct HDL Cholesterol PTH Intact Urine pH Urine WBC (Auto) Urine Creatinine Urine Total Protein Fluid Total Protein Vancomycin Trough Rheumatoid Factor Complement C4 Miscellaneous Test Crossmatch 02/02/17 02/02/17 02/03/17 10:16 12:11 00:08 WBC 12.0 H RBC 3.08 L Hgb 8.3 L Hct 25.6 L MCV MCH 27 L MCHC RDW 18.2 H Plt Count Lymph % (Auto) [place] % (Auto) Lymph # [place] # Baso # Seg Neutrophils % 78.4 H Seg Neuts % (Manual) Lymphocytes % (Manual) Monocytes % (Manual) Eosinophils % (Manual) Basophils % (Manual) Nucleated RBC % Seg Neutrophils # 9.4 H Seg Neutrophils # Man Lymphocytes # (Manual) Monocytes # (Manual) Eosinophils # (Manual) Basophils # (Manual) PT INR Fibrinogen dRVVT Confirm Interp Factor V Activity POC ABG pH POC ABG pCO2 POC ABG pO2 ABG pO2 ABG HCO3 ABG Base Excess ABG Hemoglobin Oxyhemoglobin Sodium Potassium Chloride Carbon Dioxide BUN Creatinine Glucose POC Glucose 110 H 120 H Lactic Acid Calcium Ionized Calcium Phosphorus Magnesium Direct Bilirubin AST ALT Alkaline Phosphatase Lactate Dehydrogenase Troponin T C-Reactive Protein Total Protein Albumin Prealbumin Triglycerides Cholesterol LDL Cholesterol Direct HDL Cholesterol PTH Intact Urine pH Urine WBC (Auto) Urine Creatinine Urine Total Protein Fluid Total Protein Vancomycin Trough Rheumatoid Factor Complement C4 Miscellaneous Test Crossmatch 02/03/17 02/03/17 02/03/17 05:41 07:38 11:31 WBC RBC Hgb Hct MCV MCH MCHC RDW Plt Count Lymph % (Auto) [place] % (Auto) Lymph # [place]orm[place] # Baso # Seg Neutrophils % Seg Neuts % (Manual) Lymphocytes % (Manual) Monocytes % (Manual) Eosinophils % (Manual) Basophils % (Manual) Nucleated RBC % Seg Neutrophils # Seg Neutrophils # Man Lymphocytes # (Manual) Monocytes # (Manual) Eosinophils # (Manual) Basophils # (Manual) PT INR Fibrinogen dRVVT Confirm Interp Factor V Activity POC ABG pH POC ABG pCO2 POC ABG pO2 ABG pO2 ABG HCO3 ABG Base Excess ABG Hemoglobin Oxyhemoglobin Sodium 134 L Potassium Chloride Carbon Dioxide 21 L BUN 91 H Creatinine 1.9 H Glucose 110 H POC Glucose 119 H 119 H Lactic Acid Calcium 10.3 H Ionized Calcium Phosphorus Magnesium Direct Bilirubin AST ALT Alkaline Phosphatase Lactate Dehydrogenase Troponin T C-Reactive Protein Total Protein Albumin Prealbumin Triglycerides Cholesterol LDL Cholesterol Direct HDL Cholesterol PTH Intact Urine pH Urine WBC (Auto) Urine Creatinine Urine Total Protein Fluid Total Protein Vancomycin Trough Rheumatoid Factor Complement C4 Miscellaneous Test Crossmatch 02/03/17 02/04/17 02/04/17 17:13 04:00 05:18 WBC RBC Hgb Hct MCV MCH MCHC RDW Plt Count Lymph % (Auto) [place] % (Auto) Lymph # [place] # Baso # Seg Neutrophils % Seg Neuts % (Manual) Lymphocytes % (Manual) Monocytes % (Manual) Eosinophils % (Manual) Basophils % (Manual) Nucleated RBC % Seg Neutrophils # Seg Neutrophils # Man Lymphocytes # (Manual) Monocytes # (Manual) Eosinophils # (Manual) Basophils # (Manual) PT INR Fibrinogen dRVVT Confirm Interp Factor V Activity POC ABG pH POC ABG pCO2 POC ABG pO2 ABG pO2 ABG HCO3 ABG Base Excess ABG Hemoglobin Oxyhemoglobin Sodium 136 L Potassium Chloride Carbon Dioxide BUN 58 H Creatinine 1.3 H Glucose 103 H POC Glucose 133 H 132 H Lactic Acid Calcium Ionized Calcium Phosphorus 2.00 L D Magnesium 1.60 L Direct Bilirubin AST ALT Alkaline Phosphatase Lactate Dehydrogenase Troponin T C-Reactive Protein Total Protein Albumin Prealbumin Triglycerides Cholesterol LDL Cholesterol Direct HDL Cholesterol PTH Intact Urine pH Urine WBC (Auto) Urine Creatinine Urine Total Protein Fluid Total Protein Vancomycin Trough Rheumatoid Factor Complement C4 Miscellaneous Test Crossmatch 02/05/17 02/05/17 02/05/17 00:01 04:00 06:42 WBC RBC Hgb Hct MCV MCH MCHC RDW Plt Count Lymph % (Auto) [place] % (Auto) Lymph # [place] # Baso # Seg Neutrophils % Seg Neuts % (Manual) Lymphocytes % (Manual) Monocytes % (Manual) Eosinophils % (Manual) Basophils % (Manual) Nucleated RBC % Seg Neutrophils # Seg Neutrophils # Man Lymphocytes # (Manual) Monocytes # (Manual) Eosinophils # (Manual) Basophils # (Manual) PT INR Fibrinogen dRVVT Confirm Interp Factor V Activity POC ABG pH POC ABG pCO2 POC ABG pO2 ABG pO2 ABG HCO3 ABG Base Excess ABG Hemoglobin Oxyhemoglobin Sodium Potassium Chloride Carbon Dioxide BUN 83 H Creatinine 1.8 H Glucose POC Glucose 119 H 110 H Lactic Acid Calcium 10.7 H Ionized Calcium Phosphorus Magnesium Direct Bilirubin AST ALT Alkaline Phosphatase Lactate Dehydrogenase Troponin T C-Reactive Protein Total Protein Albumin Prealbumin Triglycerides Cholesterol LDL Cholesterol Direct HDL Cholesterol PTH Intact Urine pH Urine WBC (Auto) Urine Creatinine Urine Total Protein Fluid Total Protein Vancomycin Trough Rheumatoid Factor Complement C4 Miscellaneous Test Crossmatch 02/05/17 02/05/17 02/05/17 09:59 11:47 23:44 WBC RBC 2.69 L Hgb 7.2 L Hct 22.5 L MCV MCH 27 L MCHC RDW 18.6 H Plt Count Lymph % (Auto) [place] % (Auto) 9.2 H Lymph # [place]ick # 0.9 H Baso # Seg Neutrophils % Seg Neuts % (Manual) Lymphocytes % (Manual) Monocytes % (Manual) Eosinophils % (Manual) Basophils % (Manual) Nucleated RBC % Seg Neutrophils # Seg Neutrophils # Man Lymphocytes # (Manual) Monocytes # (Manual) Eosinophils # (Manual) Basophils # (Manual) PT INR Fibrinogen dRVVT Confirm Interp Factor V Activity POC ABG pH POC ABG pCO2 POC ABG pO2 ABG pO2 ABG HCO3 ABG Base Excess ABG Hemoglobin Oxyhemoglobin Sodium Potassium Chloride Carbon Dioxide BUN Creatinine Glucose POC Glucose 130 H 123 H Lactic Acid Calcium Ionized Calcium Phosphorus Magnesium Direct Bilirubin AST ALT Alkaline Phosphatase Lactate Dehydrogenase Troponin T C-Reactive Protein Total Protein Albumin Prealbumin Triglycerides Cholesterol LDL Cholesterol Direct HDL Cholesterol PTH Intact Urine pH Urine WBC (Auto) Urine Creatinine Urine Total Protein Fluid Total Protein Vancomycin Trough Rheumatoid Factor Complement C4 Miscellaneous Test Crossmatch 02/06/17 02/06/17 02/06/17 04:45 05:58 12:01 WBC RBC Hgb Hct MCV MCH MCHC RDW Plt Count Lymph % (Auto) [place] % (Auto) Lymph # [place] # Baso # Seg Neutrophils % Seg Neuts % (Manual) Lymphocytes % (Manual) Monocytes % (Manual) Eosinophils % (Manual) Basophils % (Manual) Nucleated RBC % Seg Neutrophils # Seg Neutrophils # Man Lymphocytes # (Manual) Monocytes # (Manual) Eosinophils # (Manual) Basophils # (Manual) PT INR Fibrinogen dRVVT Confirm Interp Factor V Activity POC ABG pH POC ABG pCO2 POC ABG pO2 ABG pO2 ABG HCO3 ABG Base Excess ABG Hemoglobin Oxyhemoglobin Sodium Potassium Chloride Carbon Dioxide BUN 101 H Creatinine 2.0 H Glucose 102 H POC Glucose 115 H 132 H Lactic Acid Calcium 10.6 H Ionized Calcium Phosphorus Magnesium Direct Bilirubin AST ALT Alkaline Phosphatase 199 H Lactate Dehydrogenase Troponin T C-Reactive Protein Total Protein Albumin 1.4 L Prealbumin Triglycerides Cholesterol LDL Cholesterol Direct HDL Cholesterol PTH Intact Urine pH Urine WBC (Auto) Urine Creatinine Urine Total Protein Fluid Total Protein Vancomycin Trough Rheumatoid Factor Complement C4 Miscellaneous Test Crossmatch 02/06/17 02/06/17 02/07/17 17:41 23:32 05:04 WBC RBC Hgb Hct MCV MCH MCHC RDW Plt Count Lymph % (Auto) [place] % (Auto) Lymph # [place] # Baso # Seg Neutrophils % Seg Neuts % (Manual) Lymphocytes % (Manual) Monocytes % (Manual) Eosinophils % (Manual) Basophils % (Manual) Nucleated RBC % Seg Neutrophils # Seg Neutrophils # Man Lymphocytes # (Manual) Monocytes # (Manual) Eosinophils # (Manual) Basophils # (Manual) PT INR Fibrinogen dRVVT Confirm Interp Factor V Activity POC ABG pH POC ABG pCO2 POC ABG pO2 ABG pO2 ABG HCO3 ABG Base Excess ABG Hemoglobin Oxyhemoglobin Sodium Potassium Chloride Carbon Dioxide BUN Creatinine Glucose POC Glucose 134 H 128 H 119 H Lactic Acid Calcium Ionized Calcium Phosphorus Magnesium Direct Bilirubin AST ALT Alkaline Phosphatase Lactate Dehydrogenase Troponin T C-Reactive Protein Total Protein Albumin Prealbumin Triglycerides Cholesterol LDL Cholesterol Direct HDL Cholesterol PTH Intact Urine pH Urine WBC (Auto) Urine Creatinine Urine Total Protein Fluid Total Protein Vancomycin Trough Rheumatoid Factor Complement C4 Miscellaneous Test Crossmatch 02/07/17 02/07/17 02/07/17 06:30 11:20 17:13 WBC RBC Hgb Hct MCV MCH MCHC RDW Plt Count Lymph % (Auto) [place] % (Auto) Lymph # [place] # Baso # Seg Neutrophils % Seg Neuts % (Manual) Lymphocytes % (Manual) Monocytes % (Manual) Eosinophils % (Manual) Basophils % (Manual) Nucleated RBC % Seg Neutrophils # Seg Neutrophils # Man Lymphocytes # (Manual) Monocytes # (Manual) Eosinophils # (Manual) Basophils # (Manual) PT INR Fibrinogen dRVVT Confirm Interp Factor V Activity POC ABG pH POC ABG pCO2 POC ABG pO2 ABG pO2 ABG HCO3 ABG Base Excess ABG Hemoglobin Oxyhemoglobin Sodium Potassium 3.4 L Chloride Carbon Dioxide BUN 69 H Creatinine 1.5 H Glucose 105 H POC Glucose 117 H 110 H Lactic Acid Calcium Ionized Calcium Phosphorus Magnesium 1.50 L Direct Bilirubin AST ALT Alkaline Phosphatase Lactate Dehydrogenase Troponin T C-Reactive Protein Total Protein Albumin Prealbumin Triglycerides Cholesterol LDL Cholesterol Direct HDL Cholesterol PTH Intact Urine pH Urine WBC (Auto) Urine Creatinine Urine Total Protein Fluid Total Protein Vancomycin Trough Rheumatoid Factor Complement C4 Miscellaneous Test Crossmatch 02/07/17 02/08/17 02/08/17 20:47 04:00 11:43 WBC RBC Hgb Hct MCV MCH MCHC RDW Plt Count Lymph % (Auto) [place] % (Auto) Lymph # [place] # Baso # Seg Neutrophils % Seg Neuts % (Manual) Lymphocytes % (Manual) Monocytes % (Manual) Eosinophils % (Manual) Basophils % (Manual) Nucleated RBC % Seg Neutrophils # Seg Neutrophils # Man Lymphocytes # (Manual) Monocytes # (Manual) Eosinophils # (Manual) Basophils # (Manual) PT INR Fibrinogen dRVVT Confirm Interp Factor V Activity POC ABG pH POC ABG pCO2 POC ABG pO2 ABG pO2 ABG HCO3 ABG Base Excess ABG Hemoglobin Oxyhemoglobin Sodium Potassium Chloride Carbon Dioxide BUN 86 H Creatinine 1.7 H Glucose POC Glucose 115 H 122 H Lactic Acid Calcium Ionized Calcium Phosphorus Magnesium 1.60 L Direct Bilirubin AST ALT Alkaline Phosphatase Lactate Dehydrogenase Troponin T C-Reactive Protein Total Protein Albumin Prealbumin Triglycerides Cholesterol LDL Cholesterol Direct HDL Cholesterol PTH Intact Urine pH Urine WBC (Auto) Urine Creatinine Urine Total Protein Fluid Total Protein Vancomycin Trough Rheumatoid Factor Complement C4 Miscellaneous Test Crossmatch 02/08/17 02/09/17 02/09/17 17:36 05:44 11:30 WBC RBC Hgb Hct MCV MCH MCHC RDW Plt Count Lymph % (Auto) [place] % (Auto) Lymph # [place] # Baso # Seg Neutrophils % Seg Neuts % (Manual) Lymphocytes % (Manual) Monocytes % (Manual) Eosinophils % (Manual) Basophils % (Manual) Nucleated RBC % Seg Neutrophils # Seg Neutrophils # Man Lymphocytes # (Manual) Monocytes # (Manual) Eosinophils # (Manual) Basophils # (Manual) PT INR Fibrinogen dRVVT Confirm Interp Factor V Activity POC ABG pH POC ABG pCO2 POC ABG pO2 ABG pO2 ABG HCO3 ABG Base Excess ABG Hemoglobin Oxyhemoglobin Sodium Potassium Chloride Carbon Dioxide BUN Creatinine Glucose POC Glucose 125 H 117 H 120 H Lactic Acid Calcium Ionized Calcium Phosphorus Magnesium Direct Bilirubin AST ALT Alkaline Phosphatase Lactate Dehydrogenase Troponin T C-Reactive Protein Total Protein Albumin Prealbumin Triglycerides Cholesterol LDL Cholesterol Direct HDL Cholesterol PTH Intact Urine pH Urine WBC (Auto) Urine Creatinine Urine Total Protein Fluid Total Protein Vancomycin Trough Rheumatoid Factor Complement C4 Miscellaneous Test Crossmatch 02/09/17 02/10/17 02/10/17 23:45 05:45 05:50 WBC RBC Hgb Hct MCV MCH MCHC RDW Plt Count Lymph % (Auto) [place] % (Auto) Lymph # [place] # Baso # Seg Neutrophils % Seg Neuts % (Manual) Lymphocytes % (Manual) Monocytes % (Manual) Eosinophils % (Manual) Basophils % (Manual) Nucleated RBC % Seg Neutrophils # Seg Neutrophils # Man Lymphocytes # (Manual) Monocytes # (Manual) Eosinophils # (Manual) Basophils # (Manual) PT INR Fibrinogen dRVVT Confirm Interp Factor V Activity POC ABG pH POC ABG pCO2 POC ABG pO2 ABG pO2 ABG HCO3 ABG Base Excess ABG Hemoglobin Oxyhemoglobin Sodium Potassium Chloride Carbon Dioxide BUN 85 H Creatinine 1.8 H Glucose 109 H POC Glucose 114 H 189 H Lactic Acid Calcium Ionized Calcium Phosphorus Magnesium 2.50 H Direct Bilirubin AST ALT Alkaline Phosphatase Lactate Dehydrogenase Troponin T C-Reactive Protein Total Protein Albumin Prealbumin Triglycerides Cholesterol LDL Cholesterol Direct HDL Cholesterol PTH Intact Urine pH Urine WBC (Auto) Urine Creatinine Urine Total Protein Fluid Total Protein Vancomycin Trough Rheumatoid Factor Complement C4 Miscellaneous Test Crossmatch 02/10/17 02/10/17 02/10/17 05:51 11:55 17:42 WBC RBC Hgb Hct MCV MCH MCHC RDW Plt Count Lymph % (Auto) M[place]ick % (Auto) Lymph # M[place]ormick # Baso # Seg Neutrophils % Seg Neuts % (Manual) Lymphocytes % (Manual) Monocytes % (Manual) Eosinophils % (Manual) Basophils % (Manual) Nucleated RBC % Seg Neutrophils # Seg Neutrophils # Man Lymphocytes # (Manual) Monocytes # (Manual) Eosinophils # (Manual) Basophils # (Manual) PT INR Fibrinogen dRVVT Confirm Interp Factor V Activity POC ABG pH POC ABG pCO2 POC ABG pO2 ABG pO2 ABG HCO3 ABG Base Excess ABG Hemoglobin Oxyhemoglobin Sodium Potassium Chloride Carbon Dioxide BUN Creatinine Glucose POC Glucose 106 H 146 H 132 H Lactic Acid Calcium Ionized Calcium Phosphorus Magnesium Direct Bilirubin AST ALT Alkaline Phosphatase Lactate Dehydrogenase Troponin T C-Reactive Protein Total Protein Albumin Prealbumin Triglycerides Cholesterol LDL Cholesterol Direct HDL Cholesterol PTH Intact Urine pH Urine WBC (Auto) Urine Creatinine Urine Total Protein Fluid Total Protein Vancomycin Trough Rheumatoid Factor Complement C4 Miscellaneous Test Crossmatch 02/10/17 02/11/17 02/11/17 23:43 04:08 05:34 WBC RBC Hgb Hct MCV MCH MCHC RDW Plt Count Lymph % (Auto) [place] % (Auto) Lymph # [place] # Baso # Seg Neutrophils % Seg Neuts % (Manual) Lymphocytes % (Manual) Monocytes % (Manual) Eosinophils % (Manual) Basophils % (Manual) Nucleated RBC % Seg Neutrophils # Seg Neutrophils # Man Lymphocytes # (Manual) Monocytes # (Manual) Eosinophils # (Manual) Basophils # (Manual) PT INR Fibrinogen dRVVT Confirm Interp Factor V Activity POC ABG pH POC ABG pCO2 POC ABG pO2 ABG pO2 ABG HCO3 ABG Base Excess ABG Hemoglobin Oxyhemoglobin Sodium 136 L Potassium Chloride Carbon Dioxide BUN 65 H Creatinine 1.7 H Glucose 105 H POC Glucose 130 H 113 H Lactic Acid Calcium Ionized Calcium Phosphorus Magnesium Direct Bilirubin AST ALT Alkaline Phosphatase Lactate Dehydrogenase Troponin T C-Reactive Protein Total Protein Albumin Prealbumin Triglycerides Cholesterol LDL Cholesterol Direct HDL Cholesterol PTH Intact Urine pH Urine WBC (Auto) Urine Creatinine Urine Total Protein Fluid Total Protein Vancomycin Trough Rheumatoid Factor Complement C4 Miscellaneous Test Crossmatch 02/11/17 02/11/17 02/12/17 11:56 23:18 06:19 WBC RBC Hgb Hct MCV MCH MCHC RDW Plt Count Lymph % (Auto) [place] % (Auto) Lymph # [place] # Baso # Seg Neutrophils % Seg Neuts % (Manual) Lymphocytes % (Manual) Monocytes % (Manual) Eosinophils % (Manual) Basophils % (Manual) Nucleated RBC % Seg Neutrophils # Seg Neutrophils # Man Lymphocytes # (Manual) Monocytes # (Manual) Eosinophils # (Manual) Basophils # (Manual) PT INR Fibrinogen dRVVT Confirm Interp Factor V Activity POC ABG pH POC ABG pCO2 POC ABG pO2 ABG pO2 ABG HCO3 ABG Base Excess ABG Hemoglobin Oxyhemoglobin Sodium 136 L Potassium Chloride 97.1 L Carbon Dioxide BUN 93 H Creatinine 2.4 H Glucose POC Glucose 126 H 119 H Lactic Acid Calcium 11.0 H Ionized Calcium Phosphorus Magnesium Direct Bilirubin AST ALT Alkaline Phosphatase Lactate Dehydrogenase Troponin T C-Reactive Protein Total Protein Albumin Prealbumin Triglycerides Cholesterol LDL Cholesterol Direct HDL Cholesterol PTH Intact Urine pH Urine WBC (Auto) Urine Creatinine Urine Total Protein Fluid Total Protein Vancomycin Trough Rheumatoid Factor Complement C4 Miscellaneous Test Crossmatch 02/12/17 02/12/17 02/12/17 08:00 10:25 11:42 WBC 15.4 H RBC 2.63 L Hgb 6.9 L Hct 22.6 L MCV MCH 26 L MCHC RDW 20.5 H Plt Count Lymph % (Auto) [place] % (Auto) Lymph # [place] # Baso # Seg Neutrophils % Seg Neuts % (Manual) Lymphocytes % (Manual) Monocytes % (Manual) Eosinophils % (Manual) Basophils % (Manual) Nucleated RBC % Seg Neutrophils # Seg Neutrophils # Man Lymphocytes # (Manual) Monocytes # (Manual) Eosinophils # (Manual) Basophils # (Manual) PT INR Fibrinogen dRVVT Confirm Interp Factor V Activity POC ABG pH POC ABG pCO2 POC ABG pO2 ABG pO2 ABG HCO3 ABG Base Excess ABG Hemoglobin Oxyhemoglobin Sodium Potassium Chloride Carbon Dioxide BUN Creatinine Glucose POC Glucose 142 H Lactic Acid Calcium Ionized Calcium Phosphorus Magnesium Direct Bilirubin AST ALT Alkaline Phosphatase Lactate Dehydrogenase Troponin T C-Reactive Protein Total Protein Albumin Prealbumin Triglycerides Cholesterol LDL Cholesterol Direct HDL Cholesterol PTH Intact Urine pH Urine WBC (Auto) Urine Creatinine Urine Total Protein Fluid Total Protein Vancomycin Trough Rheumatoid Factor Complement C4 Miscellaneous Test Crossmatch See Detail 02/12/17 02/13/17 02/13/17 18:04 00:04 05:00 WBC RBC Hgb Hct MCV MCH MCHC RDW Plt Count Lymph % (Auto) [place] % (Auto) Lymph # [place] # Baso # Seg Neutrophils % Seg Neuts % (Manual) Lymphocytes % (Manual) Monocytes % (Manual) Eosinophils % (Manual) Basophils % (Manual) Nucleated RBC % Seg Neutrophils # Seg Neutrophils # Man Lymphocytes # (Manual) Monocytes # (Manual) Eosinophils # (Manual) Basophils # (Manual) PT INR Fibrinogen dRVVT Confirm Interp Factor V Activity POC ABG pH POC ABG pCO2 POC ABG pO2 ABG pO2 ABG HCO3 ABG Base Excess ABG Hemoglobin Oxyhemoglobin Sodium 134 L Potassium Chloride 96.1 L Carbon Dioxide 20 L BUN 125 H Creatinine 3.0 H Glucose 111 H POC Glucose 135 H 109 H Lactic Acid Calcium 11.3 H Ionized Calcium Phosphorus Magnesium Direct Bilirubin AST ALT Alkaline Phosphatase Lactate Dehydrogenase Troponin T C-Reactive Protein Total Protein Albumin Prealbumin Triglycerides Cholesterol LDL Cholesterol Direct HDL Cholesterol PTH Intact Urine pH Urine WBC (Auto) Urine Creatinine Urine Total Protein Fluid Total Protein Vancomycin Trough Rheumatoid Factor Complement C4 Miscellaneous Test Crossmatch 02/13/17 02/13/17 02/13/17 05:00 05:28 12:03 WBC 11.9 H RBC 2.92 L Hgb 7.8 L Hct 25.2 L MCV MCH 27 L MCHC RDW 19.3 H Plt Count Lymph % (Auto) [place] % (Auto) Lymph # [place] # Baso # Seg Neutrophils % Seg Neuts % (Manual) Lymphocytes % (Manual) Monocytes % (Manual) Eosinophils % (Manual) Basophils % (Manual) Nucleated RBC % Seg Neutrophils # Seg Neutrophils # Man Lymphocytes # (Manual) Monocytes # (Manual) Eosinophils # (Manual) Basophils # (Manual) PT INR Fibrinogen dRVVT Confirm Interp Factor V Activity POC ABG pH POC ABG pCO2 POC ABG pO2 ABG pO2 ABG HCO3 ABG Base Excess ABG Hemoglobin Oxyhemoglobin Sodium Potassium Chloride Carbon Dioxide BUN Creatinine Glucose POC Glucose 124 H 160 H Lactic Acid Calcium Ionized Calcium Phosphorus Magnesium Direct Bilirubin AST ALT Alkaline Phosphatase Lactate Dehydrogenase Troponin T C-Reactive Protein Total Protein Albumin Prealbumin Triglycerides Cholesterol LDL Cholesterol Direct HDL Cholesterol PTH Intact Urine pH Urine WBC (Auto) Urine Creatinine Urine Total Protein Fluid Total Protein Vancomycin Trough Rheumatoid Factor Complement C4 Miscellaneous Test Crossmatch 02/13/17 02/14/17 02/14/17 18:09 06:16 08:08 WBC 15.2 H RBC 2.97 L Hgb 8.1 L Hct 26.3 L MCV MCH MCHC RDW 19.3 H Plt Count Lymph % (Auto) [place] % (Auto) Lymph # [place] # Baso # Seg Neutrophils % Seg Neuts % (Manual) Lymphocytes % (Manual) Monocytes % (Manual) Eosinophils % (Manual) Basophils % (Manual) Nucleated RBC % Seg Neutrophils # Seg Neutrophils # Man Lymphocytes # (Manual) Monocytes # (Manual) Eosinophils # (Manual) Basophils # (Manual) PT INR Fibrinogen dRVVT Confirm Interp Factor V Activity POC ABG pH POC ABG pCO2 POC ABG pO2 ABG pO2 ABG HCO3 ABG Base Excess ABG Hemoglobin Oxyhemoglobin Sodium Potassium Chloride Carbon Dioxide BUN Creatinine Glucose POC Glucose 110 H 112 H Lactic Acid Calcium Ionized Calcium Phosphorus Magnesium Direct Bilirubin AST ALT Alkaline Phosphatase Lactate Dehydrogenase Troponin T C-Reactive Protein Total Protein Albumin Prealbumin Triglycerides Cholesterol LDL Cholesterol Direct HDL Cholesterol PTH Intact Urine pH Urine WBC (Auto) Urine Creatinine Urine Total Protein Fluid Total Protein Vancomycin Trough Rheumatoid Factor Complement C4 Miscellaneous Test Crossmatch 02/14/17 02/14/17 02/15/17 08:08 17:41 04:15 WBC RBC Hgb Hct MCV MCH MCHC RDW Plt Count Lymph % (Auto) [place] % (Auto) Lymph # [place] # Baso # Seg Neutrophils % Seg Neuts % (Manual) Lymphocytes % (Manual) Monocytes % (Manual) Eosinophils % (Manual) Basophils % (Manual) Nucleated RBC % Seg Neutrophils # Seg Neutrophils # Man Lymphocytes # (Manual) Monocytes # (Manual) Eosinophils # (Manual) Basophils # (Manual) PT INR Fibrinogen dRVVT Confirm Interp Factor V Activity POC ABG pH POC ABG pCO2 POC ABG pO2 ABG pO2 ABG HCO3 ABG Base Excess ABG Hemoglobin Oxyhemoglobin Sodium Potassium Chloride Carbon Dioxide 18 L 21 L BUN 79 H 113 H Creatinine 2.1 H 2.8 H Glucose POC Glucose 118 H Lactic Acid Calcium 10.7 H Ionized Calcium Phosphorus 1.70 L D Magnesium 1.60 L Direct Bilirubin AST ALT Alkaline Phosphatase Lactate Dehydrogenase Troponin T C-Reactive Protein Total Protein Albumin Prealbumin Triglycerides Cholesterol LDL Cholesterol Direct HDL Cholesterol PTH Intact Urine pH Urine WBC (Auto) Urine Creatinine Urine Total Protein Fluid Total Protein Vancomycin Trough Rheumatoid Factor Complement C4 Miscellaneous Test Crossmatch 02/15/17 02/15/17 02/15/17 06:06 11:31 17:52 WBC RBC Hgb Hct MCV MCH MCHC RDW Plt Count Lymph % (Auto) [place] % (Auto) Lymph # [place] # Baso # Seg Neutrophils % Seg Neuts % (Manual) Lymphocytes % (Manual) Monocytes % (Manual) Eosinophils % (Manual) Basophils % (Manual) Nucleated RBC % Seg Neutrophils # Seg Neutrophils # Man Lymphocytes # (Manual) Monocytes # (Manual) Eosinophils # (Manual) Basophils # (Manual) PT INR Fibrinogen dRVVT Confirm Interp Factor V Activity POC ABG pH POC ABG pCO2 POC ABG pO2 ABG pO2 ABG HCO3 ABG Base Excess ABG Hemoglobin Oxyhemoglobin Sodium Potassium Chloride Carbon Dioxide BUN Creatinine Glucose POC Glucose 115 H 129 H 201 H Lactic Acid Calcium Ionized Calcium Phosphorus Magnesium Direct Bilirubin AST ALT Alkaline Phosphatase Lactate Dehydrogenase Troponin T C-Reactive Protein Total Protein Albumin Prealbumin Triglycerides Cholesterol LDL Cholesterol Direct HDL Cholesterol PTH Intact Urine pH Urine WBC (Auto) Urine Creatinine Urine Total Protein Fluid Total Protein Vancomycin Trough Rheumatoid Factor Complement C4 Miscellaneous Test Crossmatch 02/15/17 02/15/17 02/16/17 19:08 19:08 05:12 WBC RBC Hgb Hct MCV MCH MCHC RDW Plt Count Lymph % (Auto) [place] % (Auto) Lymph # [place] # Baso # Seg Neutrophils % Seg Neuts % (Manual) Lymphocytes % (Manual) Monocytes % (Manual) Eosinophils % (Manual) Basophils % (Manual) Nucleated RBC % Seg Neutrophils # Seg Neutrophils # Man Lymphocytes # (Manual) Monocytes # (Manual) Eosinophils # (Manual) Basophils # (Manual) PT INR Fibrinogen dRVVT Confirm Interp Factor V Activity POC ABG pH POC ABG pCO2 POC ABG pO2 ABG pO2 ABG HCO3 ABG Base Excess ABG Hemoglobin Oxyhemoglobin Sodium Potassium Chloride Carbon Dioxide BUN Creatinine Glucose POC Glucose 125 H Lactic Acid Calcium Ionized Calcium 6.0 H Phosphorus Magnesium Direct Bilirubin AST ALT Alkaline Phosphatase Lactate Dehydrogenase Troponin T C-Reactive Protein Total Protein Albumin Prealbumin Triglycerides Cholesterol LDL Cholesterol Direct HDL Cholesterol PTH Intact 10.88 L Urine pH Urine WBC (Auto) Urine Creatinine Urine Total Protein Fluid Total Protein Vancomycin Trough Rheumatoid Factor Complement C4 Miscellaneous Test Crossmatch 02/16/17 02/16/17 02/16/17 06:00 12:39 17:31 WBC RBC Hgb Hct MCV MCH MCHC RDW Plt Count Lymph % (Auto) [place] % (Auto) Lymph # [place] # Baso # Seg Neutrophils % Seg Neuts % (Manual) Lymphocytes % (Manual) Monocytes % (Manual) Eosinophils % (Manual) Basophils % (Manual) Nucleated RBC % Seg Neutrophils # Seg Neutrophils # Man Lymphocytes # (Manual) Monocytes # (Manual) Eosinophils # (Manual) Basophils # (Manual) PT INR Fibrinogen dRVVT Confirm Interp Factor V Activity POC ABG pH POC ABG pCO2 POC ABG pO2 ABG pO2 ABG HCO3 ABG Base Excess ABG Hemoglobin Oxyhemoglobin Sodium Potassium Chloride Carbon Dioxide BUN 74 H Creatinine 1.7 H Glucose 102 H POC Glucose 109 H 106 H Lactic Acid Calcium Ionized Calcium Phosphorus 2.10 L D Magnesium Direct Bilirubin AST ALT Alkaline Phosphatase Lactate Dehydrogenase Troponin T C-Reactive Protein Total Protein Albumin Prealbumin Triglycerides Cholesterol LDL Cholesterol Direct HDL Cholesterol PTH Intact Urine pH Urine WBC (Auto) Urine Creatinine Urine Total Protein Fluid Total Protein Vancomycin Trough Rheumatoid Factor Complement C4 Miscellaneous Test Crossmatch 02/16/17 02/17/17 02/17/17 23:57 05:30 06:00 WBC RBC Hgb Hct MCV MCH MCHC RDW Plt Count Lymph % (Auto) [place] % (Auto) Lymph # [place] # Baso # Seg Neutrophils % Seg Neuts % (Manual) Lymphocytes % (Manual) Monocytes % (Manual) Eosinophils % (Manual) Basophils % (Manual) Nucleated RBC % Seg Neutrophils # Seg Neutrophils # Man Lymphocytes # (Manual) Monocytes # (Manual) Eosinophils # (Manual) Basophils # (Manual) PT INR Fibrinogen dRVVT Confirm Interp Factor V Activity POC ABG pH POC ABG pCO2 POC ABG pO2 ABG pO2 ABG HCO3 ABG Base Excess ABG Hemoglobin Oxyhemoglobin Sodium Potassium Chloride Carbon Dioxide BUN 94 H Creatinine 2.3 H Glucose 106 H POC Glucose 127 H 122 H Lactic Acid Calcium Ionized Calcium Phosphorus Magnesium Direct Bilirubin AST ALT Alkaline Phosphatase Lactate Dehydrogenase Troponin T C-Reactive Protein Total Protein Albumin Prealbumin Triglycerides Cholesterol LDL Cholesterol Direct HDL Cholesterol PTH Intact Urine pH Urine WBC (Auto) Urine Creatinine Urine Total Protein Fluid Total Protein Vancomycin Trough Rheumatoid Factor Complement C4 Miscellaneous Test Crossmatch 02/17/17 02/17/17 02/18/17 12:17 17:57 00:20 WBC RBC Hgb Hct MCV MCH MCHC RDW Plt Count Lymph % (Auto) [place] % (Auto) Lymph # [place] # Baso # Seg Neutrophils % Seg Neuts % (Manual) Lymphocytes % (Manual) Monocytes % (Manual) Eosinophils % (Manual) Basophils % (Manual) Nucleated RBC % Seg Neutrophils # Seg Neutrophils # Man Lymphocytes # (Manual) Monocytes # (Manual) Eosinophils # (Manual) Basophils # (Manual) PT INR Fibrinogen dRVVT Confirm Interp Factor V Activity POC ABG pH POC ABG pCO2 POC ABG pO2 ABG pO2 ABG HCO3 ABG Base Excess ABG Hemoglobin Oxyhemoglobin Sodium Potassium Chloride Carbon Dioxide BUN Creatinine Glucose POC Glucose 173 H 140 H 132 H Lactic Acid Calcium Ionized Calcium Phosphorus Magnesium Direct Bilirubin AST ALT Alkaline Phosphatase Lactate Dehydrogenase Troponin T C-Reactive Protein Total Protein Albumin Prealbumin Triglycerides Cholesterol LDL Cholesterol Direct HDL Cholesterol PTH Intact Urine pH Urine WBC (Auto) Urine Creatinine Urine Total Protein Fluid Total Protein Vancomycin Trough Rheumatoid Factor Complement C4 Miscellaneous Test Crossmatch 02/18/17 02/18/17 02/18/17 05:30 06:14 09:51 WBC 13.1 H RBC 2.77 L Hgb 7.6 L Hct 23.9 L MCV MCH MCHC RDW 19.0 H Plt Count Lymph % (Auto) [place] % (Auto) 11.1 H Lymph # [place] # 1.5 H Baso # Seg Neutrophils % Seg Neuts % (Manual) Lymphocytes % (Manual) Monocytes % (Manual) Eosinophils % (Manual) Basophils % (Manual) Nucleated RBC % Seg Neutrophils # 9.1 H Seg Neutrophils # Man Lymphocytes # (Manual) Monocytes # (Manual) Eosinophils # (Manual) Basophils # (Manual) PT INR Fibrinogen dRVVT Confirm Interp Factor V Activity POC ABG pH POC ABG pCO2 POC ABG pO2 ABG pO2 ABG HCO3 ABG Base Excess ABG Hemoglobin Oxyhemoglobin Sodium 136 L Potassium Chloride 97.5 L Carbon Dioxide BUN 73 H Creatinine 1.9 H Glucose POC Glucose 106 H Lactic Acid Calcium Ionized Calcium Phosphorus Magnesium Direct Bilirubin AST ALT Alkaline Phosphatase Lactate Dehydrogenase Troponin T C-Reactive Protein Total Protein Albumin Prealbumin Triglycerides Cholesterol LDL Cholesterol Direct HDL Cholesterol PTH Intact Urine pH Urine WBC (Auto) Urine Creatinine Urine Total Protein Fluid Total Protein Vancomycin Trough Rheumatoid Factor Complement C4 Miscellaneous Test Crossmatch 02/18/17 11:32 WBC RBC Hgb Hct MCV MCH MCHC RDW Plt Count Lymph % (Auto) [place] % (Auto) Lymph # [place] # Baso # Seg Neutrophils % Seg Neuts % (Manual) Lymphocytes % (Manual) Monocytes % (Manual) Eosinophils % (Manual) Basophils % (Manual) Nucleated RBC % Seg Neutrophils # Seg Neutrophils # Man Lymphocytes # (Manual) Monocytes # (Manual) Eosinophils # (Manual) Basophils # (Manual) PT INR Fibrinogen dRVVT Confirm Interp Factor V Activity POC ABG pH POC ABG pCO2 POC ABG pO2 ABG pO2 ABG HCO3 ABG Base Excess ABG Hemoglobin Oxyhemoglobin Sodium Potassium Chloride Carbon Dioxide BUN Creatinine Glucose POC Glucose 123 H Lactic Acid Calcium Ionized Calcium Phosphorus Magnesium Direct Bilirubin AST ALT Alkaline Phosphatase Lactate Dehydrogenase Troponin T C-Reactive Protein Total Protein Albumin Prealbumin Triglycerides Cholesterol LDL Cholesterol Direct HDL Cholesterol PTH Intact Urine pH Urine WBC (Auto) Urine Creatinine Urine Total Protein Fluid Total Protein Vancomycin Trough Rheumatoid Factor Complement C4 Miscellaneous Test Crossmatch Allied health notes reviewed: RT (Has been on PS 04/07, no desaturations today)
[2017-02-18] MEDS: TRANSDERM-SCOP TD SCH (15:55)
[2017-02-18] MEDS: DURAGESIC TD SCH (16:53)
[2017-02-18] MEDS ORDERED: TPN ADULT IV SCH (20:00)
[2017-02-18] MEDS: LOPRESSOR IV PRN (21:01)
[2017-02-19] MEDS: HumuLIN R SUB-Q SCH ×4 (00:05→19:17)
[2017-02-19] MEDS: REGLAN IV SCH ×3 (05:11→21:37)
[2017-02-19] MEDS: FLAGYL 500 MG/100 ML 500 MG/100 ML BAG IV SCH ×3 (05:11→21:36)
[2017-02-19] MEDS: DUONEB *Not for PRN Use IH SCH ×3 (09:15→19:30)
[2017-02-19] MEDS: MAG-OX PO SCH (09:23)
[2017-02-19] MEDS: ROBINUL PO SCH ×2 (09:23→21:36)
[2017-02-19] MEDS: PROTONIX FEEDTUBE SCH (09:23)
[2017-02-19] MEDS: DIFLUCAN 200 MG/100 ML BAG IV SCH (09:24)
[2017-02-19] MEDS: HEPARIN SUB-Q SCH ×2 (09:24→21:37)
--- NOTE | 2017-02-19 09:51 | Progress Note ---
Assessment and Plan Assessment and plan: Patient is 46-year-old woman with a history of hypertension, diabetes, asthma, hyperlipidemia, chronic kidney disease and anxiety , who was brought in by family because, she couldn't get her words out, her face was also twisted, she was admitted for acute CVA and accelerated hypertension, she had a hx of poor adherence with her medications, and uncontrolled htn. Patient's SBP on admission was noted be greater than 260. TPA was started but this was discontinued after 5 minutes because her blood pressure became uncontrolled. The TPA was not initiated again because the patient was outside the TPA window. Status post cardiac arrest , 11/21/16 on Mechanical ventilation >96 hrs, >3 months Vent Dependant Respirtory failure secodnary to Anoxic Brain injury S/P Tracheostomy Severe Sepsis with septic shock Surgical wound infection/gram-negative sepsis/candidemia/peritonitis - On TPN ESRD - on HD - Cr 1.9 today Acute CVA with infarct - Neurology input appreciated - CT shows continued evolution of left MCA infarct with slight mass effect and edema, and there is no hemorrhage - PRINCE showed hyperdynamic with ef of 75%, neither clot nor septal defect seen - MRA Brain shows near complete occlusion of M2 and M3 of the left MCA - Repeat CT scan done on 09/11, shows stable findings - carotid doppler negative - Echo shows preserved systolic function but does show some left ventricular diastolic dysfunction - continue asa and statin Persistent vegetative state - This patient's needs placement at SNF - She was denied for LTACH Nosocomial acquired aspiration pneumonia/sepsis/UTI/PERITONITIS - Has been on multiple antibiotics, expect recurrent sepsis due to now known Bowel perforation not amendable to surgery due to clinical condition A. fib with RVR -On amio drip, cannot change to PO due to persistent nausea and vomiting Diabetes type 2. -Continue sliding-scale regular insulin and Accu-Cheks. Hyperlipidemia. Continue statin Severe Protein calorie Malnutrition/Adult failure to thrive - TPN Anemia requiring multiple transfusions/acute blood loss - currently stable - Check AM labs - Will transfuse if it is below 7 Sacral decubitus ulcer - Status post debridement -Wound vac in place Disposition. Very poor prognosis. DNR - The high probability of a clinically significant, sudden or life threatening deterioration of the [neurologic, CV] system(s) required my full and direct attention, intervention and personal management. The aggregate critical care time was [35] minutes. This time is in addition to time spent performing reported procedures but includes the following: [x] Data Review and interpretation [x] Patient assessment and monitoring of vital signs [x] Documentation [x] Medication orders and management History Interval history: patient seen and examined, remains unresponsive on the ventilator. no fever, no vomiting was tachypneic and tachycardic overnight Hospitalist Physical - Physical exam Narrative exam: GEN: Ill appearing, trach, staring into space,, non purposeful movement NECK: SUPPLE, trach in place, ngt in place and to suction. CVS:Irregular Irregular with LUNGS/CHEST: NORMAL CHEST EXPANSION B, GOOD AIR ENTRY B, tachypena ABD: SOFT, no grimise on abdominal palpation, Ostomy bags at two side by side fistula site. GBS, NO REBOUND OR GUARDING, peg tube in place EXT/SKIN: NO SIGNIFICANT EDEMA BUT WITH UNSTAGEABLE SACRAL DECUB, wound vac inplace MSK: +spontaneous non purposeful movement NEURO: on a ventilator and unresponsive despite being off sedation PSY: Comatose, - Constitutional Vitals: Temp Pulse Resp BP Pulse Ox 98.9 F 95 H 22 115/70 98 02/19/17 08:00 02/19/17 08:00 02/19/17 08:00 02/19/17 08:00 02/19/17 08:00 General appearance: Present: no acute distress, well-nourished Results - Labs CBC & Chem 7: 02/19/17 09:45 02/19/17 09:45 Labs: Laboratory Last Values WBC 13.1 K/mm3 (4.5-11.0) H 02/18/17 09:51 RBC 2.77 M/mm3 (3.65-5.03) L 02/18/17 09:51 Hgb 7.6 gm/dl (10.1-14.3) L 02/18/17 09:51 Hct 23.9 % (30.3-42.9) L 02/18/17 09:51 MCV 87 fl (79-97) 02/18/17 09:51 MCH 28 pg (28-32) 02/18/17 09:51 MCHC 32 % (30-34) 02/18/17 09:51 RDW 19.0 % (13.2-15.2) H 02/18/17 09:51 Plt Count 254 K/mm3 (140-440) 02/18/17 09:51 Lymph % (Auto) 18.5 % (13.4-35.0) 02/18/17 09:51 [place] % (Auto) 11.1 % (0.0-7.3) H 02/18/17 09:51 Eos % (Auto) 0.7 % (0.0-4.3) 02/18/17 09:51 Baso % (Auto) 0.3 % (0.0-1.8) 02/18/17 09:51 Lymph # 2.4 K/mm3 (1.2-5.4) 02/18/17 09:51 [place] # 1.5 K/mm3 (0.0-0.8) H 02/18/17 09:51 Eos # 0.1 K/mm3 (0.0-0.4) 02/18/17 09:51 Baso # 0.0 K/mm3 (0.0-0.1) 02/18/17 09:51 Add Manual Diff Complete 12/19/16 05:02 Total Counted 100 12/19/16 05:02 Seg Neutrophils % 69.4 % (40.0-70.0) 02/18/17 09:51 Seg Neuts % (Manual) 64.0 % (40.0-70.0) 12/19/16 05:02 Band Neutrophils % 15.0 % 12/19/16 05:02 Lymphocytes % (Manual) 13.0 % (13.4-35.0) L 12/19/16 05:02 Reactive Lymphs % (Man) 0 % 12/19/16 05:02 Monocytes % (Manual) 7.0 % (0.0-7.3) 12/19/16 05:02 Eosinophils % (Manual) 0 % (0.0-4.3) 12/19/16 05:02 Basophils % (Manual) 1.0 % (0.0-1.8) 12/19/16 05:02 Metamyelocytes % 0 % 12/19/16 05:02 Myelocytes % 0 % 12/19/16 05:02 Promyelocytes % 0 % 12/19/16 05:02 Blast Cells % 0 % 12/19/16 05:02 Nucleated RBC % 1.0 % (0.0-0.9) H 12/19/16 05:02 Seg Neutrophils # 9.1 K/mm3 (1.8-7.7) H 02/18/17 09:51 Seg Neutrophils # Man 12.9 K/mm3 (1.8-7.7) H 12/19/16 05:02 Band Neutrophils # 3.0 K/mm3 12/19/16 05:02 Lymphocytes # (Manual) 2.6 K/mm3 (1.2-5.4) 12/19/16 05:02 Abs React Lymphs (Man) 0.0 K/mm3 12/19/16 05:02 Monocytes # (Manual) 1.4 K/mm3 (0.0-0.8) H 12/19/16 05:02 Eosinophils # (Manual) 0.0 K/mm3 (0.0-0.4) 12/19/16 05:02 Basophils # (Manual) 0.2 K/mm3 (0.0-0.1) H 12/19/16 05:02 Metamyelocytes # 0.0 K/mm3 12/19/16 05:02 Myelocytes # 0.0 K/mm3 12/19/16 05:02 Promyelocytes # 0.0 K/mm3 12/19/16 05:02 Blast Cells # 0.0 K/mm3 12/19/16 05:02 Pathologist Review 09/13/16 04:00 WBC Morphology Not Reportable 12/19/16 05:02 Hypersegmented Neuts Not Reportable 12/19/16 05:02 Hyposegmented Neuts Not Reportable 12/19/16 05:02 Hypogranular Neuts Not Reportable 12/19/16 05:02 Smudge Cells Not Reportable 12/19/16 05:02 Toxic Granulation Not Reportable 12/19/16 05:02 Toxic Vacuolation Not Reportable 12/19/16 05:02 Dohle Bodies Not Reportable 12/19/16 05:02 Pelger-Huet Anomaly Not Reportable 12/19/16 05:02 Jasmina Rods Not Reportable 12/19/16 05:02 Platelet Estimate Consistent w auto 12/19/16 05:02 Clumped Platelets Not Reportable 12/19/16 05:02 Plt Clumps, EDTA Not Reportable 12/19/16 05:02 Large Platelets Not Reportable 12/19/16 05:02 Giant Platelets Not Reportable 12/19/16 05:02 Platelet Satelliting Not Reportable 12/19/16 05:02 Plt Morphology Comment Not Reportable 12/19/16 05:02 RBC Morphology Not Reportable 12/19/16 05:02 Dimorphic RBCs Not Reportable 12/19/16 05:02 Polychromasia Not Reportable 12/19/16 05:02 Hypochromasia Not Reportable 12/19/16 05:02 Poikilocytosis Not Reportable 12/19/16 05:02 Anisocytosis Not Reportable 12/19/16 05:02 Microcytosis Not Reportable 12/19/16 05:02 Macrocytosis Not Reportable 12/19/16 05:02 Spherocytes Not Reportable 12/19/16 05:02 Pappenheimer Bodies Not Reportable 12/19/16 05:02 Sickle Cells Not Reportable 12/19/16 05:02 Target Cells Few 12/19/16 05:02 Tear Drop Cells Not Reportable 12/19/16 05:02 Ovalocytes Not Reportable 12/19/16 05:02 Stomatocytes Rare 12/03/16 04:00 Helmet Cells Not Reportable 12/19/16 05:02 [place] Bodies Not Reportable 12/19/16 05:02 [place] Rings Not Reportable 12/19/16 05:02 Chuck Cells Not Reportable 12/19/16 05:02 Bite Cells Not Reportable 12/19/16 05:02 Crenated Cell Not Reportable 12/19/16 05:02 Elliptocytes Not Reportable 12/19/16 05:02 Acanthocytes (Spur) Not Reportable 12/19/16 05:02 Rouleaux Not Reportable 12/19/16 05:02 Hemoglobin C Crystals Not Reportable 12/19/16 05:02 Schistocytes Not Reportable 12/19/16 05:02 Malaria parasites Not Reportable 12/19/16 05:02 ESR > 140.0 mm/Hr (0-20) 09/08/16 11:48 Jun Bodies Not Reportable 12/19/16 05:02 Hem Pathologist Commnt No 12/19/16 05:02 PT 15.4 Sec. (12.2-14.9) H 01/13/17 15:50 INR 1.16 (0.87-1.13) H 01/13/17 15:50 APTT 33.0 Sec. (24.2-36.6) 10/09/16 03:45 Thrombin Time 16.8 Sec. (15.1-19.6) 09/03/16 00:10 Fibrinogen 750 mg/dl (211-480) H 09/08/16 11:48 Lupus Anticoagulant see below 09/12/16 09:59 LA PTT Baseline See scanned report 09/12/16 09:59 dRVVT Confirm Interp Positive (Negative) H 09/12/16 09:59 dRVVT Screen 50:50 See scanned report 09/12/16 09:59 dRVVT Mix Interpret See scanned report 09/12/16 09:59 Protein C Antigen 122 % (70-140) 09/08/16 15:35 Free Protein S 97 % normal (50-147) 09/08/16 15:35 Total Protein S 109 % (70-140) 09/08/16 15:35 Antithrombin III Ag 100 % (80-120) 09/08/16 15:35 Heparin Anti-Xa, Unfract Negative (Negative) 09/29/16 13:35 Factor V Activity 182 % (65-150) H 09/08/16 15:35 POC ABG pH 7.436 (7.35-7.45) 01/20/17 12: ABG pH 7.450 pH Units (7.350-7.450) 12/05/16 Unknown POC ABG pCO2 35.3 (35-45) 01/20/17 12: ABG pCO2 29.6 mm Hg 12/05/16 Unknown POC ABG pO2 70 (80-105) L 01/20/17 12: ABG pO2 75.2 mm Hg (80.0-90.0) L 12/05/16 Unknown POC ABG HCO3 23.8 01/20/17 12: ABG HCO3 20.1 mmol/L (20.0-26.0) 12/05/16 Unknown POC ABG Total CO2 25 01/20/17 12:17 POC ABG O2 Sat 94 01/20/17 12: ABG O2 Saturation 96.8 % (95.0-99.0) 12/05/16 Unknown ABG O2 Content 9.9 (0.0-44) 12/05/16 Unknown POC ABG Base Excess 0 01/20/17 12:17 ABG Base Excess -3.4 mmol/L (-2.0-3.0) L 12/05/16 Unknown ABG Hemoglobin 7.4 gm/dl (12.0-16.0) L 12/05/16 Unknown ABG Carboxyhemoglobin 1.8 % (0.0-5.0) 12/05/16 Unknown ABG Methemoglobin 0.6 % (0.0-1.5) 12/05/16 Unknown Oxyhemoglobin 94.5 % (95.0-99.0) L 12/05/16 Unknown FiO2 30 % 01/20/17 12:17 Sodium 136 mmol/L (137-145) L 02/18/17 05:30 Potassium 3.6 mmol/L (3.6-5.0) 02/18/17 05:30 Chloride 97.5 mmol/L (98-107) L 02/18/17 05:30 Carbon Dioxide 24 mmol/L (22-30) 02/18/17 05:30 Anion Gap 18 mmol/L 02/18/17 05:30 BUN 73 mg/dL (7-17) H 02/18/17 05:30 Creatinine 1.9 mg/dL (0.7-1.2) H 02/18/17 05:30 Estimated GFR 34 ml/min 02/18/17 05:30 BUN/Creatinine Ratio 38 % 02/18/17 05:30 Glucose 98 mg/dL (65-100) 02/18/17 05:30 POC Glucose 121 (70-105) H 02/19/17 05:36 Osmolality 351 Mosm/kg 09/16/16 11:47 Lactic Acid 2.30 mmol/L (0.7-2.0) H* 01/09/17 08:22 Calcium 9.4 mg/dL (8.4-10.2) 02/18/17 05:30 Ionized Calcium 6.0 mg/dL (4.8-5.6) H 02/15/17 19:08 Phosphorus 2.80 mg/dL (2.5-4.5) 02/18/17 05:30 Magnesium 2.00 mg/dL (1.7-2.3) 02/17/17 06:00 Total Bilirubin 0.40 mg/dL (0.1-1.2) 02/06/17 04:45 Direct Bilirubin 0.2 mg/dL (0-0.2) 01/28/17 04:00 Indirect Bilirubin 0.3 mg/dL 01/28/17 04:00 AST 29 units/L (5-40) 02/06/17 04:45 ALT 26 units/L (7-56) 02/06/17 04:45 Alkaline Phosphatase 199 units/L (35-129) H 02/06/17 04:45 Ammonia 27.0 umol/L (25-60) 09/07/16 08:37 Lactate Dehydrogenase 170 units/L (91-180) 01/13/17 15:50 Total Creatine Kinase 121 units/L (30-135) 09/29/16 20:12 CK-MB (CK-2) < 1.0 ng/mL (0.0-4.0) 09/29/16 20:12 CK-MB (CK-2) Rel Index 0.8 (0-4) 09/29/16 20:12 Troponin T 0.204 ng/mL (0.00-0.029) H* 09/29/16 20:12 C-Reactive Protein 8.10 mg/dL (0.00-1.30) H 01/31/17 11:12 Total Protein 6.7 g/dL (6.3-8.2) 02/06/17 04:45 Albumin 1.4 g/dL (3.9-5) L 02/06/17 04:45 Albumin/Globulin Ratio 0.3 % 02/06/17 04:45 Prealbumin 0.110 g/L (0.200-0.400) L 12/29/16 05:15 Triglycerides 55 mg/dL (2-149) 02/06/17 04:45 Cholesterol 31 mg/dL (50-199) L 09/29/16 20:12 LDL Cholesterol Direct 4 mg/dL (50-130) L 09/29/16 20:12 HDL Cholesterol 3 mg/dL (40-59) L 09/29/16 20:12 Cholesterol/HDL Ratio 10.33 % 09/29/16 20:12 Angiotensin Convert Enz See scanned report 09/08/16 11:48 Renin 0.99 ng/mL/h (0.25-5.82) 10/07/16 10:56 Aldosterone <1 ng/dL () 10/07/16 10:56 Aldosterone/Renin Dir see below 10/07/16 10:56 Serotonin Release Assay See scanned report 09/29/16 13:35 TSH 1.010 mlU/mL (0.270-4.200) 09/07/16 08:37 HCG, Qual Negative (Negative) 09/03/16 00:10 PTH Intact 10.88 pg/mL (15-65) L 02/15/17 19:08 Total Cortisol 18.2 mcg/dL () 02/02/17 20:09 Urine Color Yellow (Yellow) 11/05/16 13:09 Urine Turbidity Clear (Clear) 11/05/16 13:09 Urine pH 9.0 (5.0-7.0) H 11/05/16 13:09 Ur Specific Miles 1.011 (1.003-1.030) 11/05/16 13:09 Urine Protein 100 mg/dl mg/dL (Negative) 11/05/16 13:09 Urine Glucose (UA) Neg mg/dL (Negative) 11/05/16 13:09 Urine Ketones Neg mg/dL (Negative) 11/05/16 13:09 Urine Blood Neg (Negative) 11/05/16 13:09 Urine Nitrite Neg (Negative) 11/05/16 13:09 Urine Bilirubin Neg (Negative) 11/05/16 13:09 Urine Urobilinogen < 2.0 mg/dL (<2.0) 11/05/16 13:09 Ur Leukocyte Esterase Neg (Negative) 11/05/16 13:09 Urine WBC (Auto) 4.0 /HPF (0.0-6.0) 11/05/16 13:09 Urine RBC (Auto) 1.0 /HPF (0.0-6.0) 11/05/16 13:09 U Epithel Cells (Auto) 1.0 /HPF (0-13.0) 10/07/16 18:30 Urine Bacteria (Auto) 4+ /HPF (Negative) 11/05/16 13:09 Urine WBC Clumps 2+ /HPF 09/07/16 02:47 Hyaline Casts 4 /LPF 09/07/16 02:47 Urine Mucus Few /HPF 10/07/16 18:30 Urine Yeast (Budding) 3+ /HPF 10/07/16 18:30 Urine Eosinophils None seen (None Seen) 09/07/16 16:00 Urine Total Volume 950 11/12/16 10:18 Urine Creatinine 19.7 mg/dL (0.1-20.0) 11/12/16 10:18 Height (in) 65.0 inches 11/12/16 10:18 Weight (lb) 181.0 lbs 11/12/16 10:18 Creatinine Clearance 5 11/12/16 10:18 Urine Sodium 36 mEq/L 09/16/16 19:19 Urine Total Protein 16 mg/dL (5-11.8) H 09/16/16 19:19 Fluid Type Pleural 01/13/17 12:10 Fluid Color Yellow 01/13/17 12:10 Fluid Appearance Hazy 01/13/17 12:10 Fluid WBC 182 /mm3 01/13/17 12:10 Fluid RBC 41 /mm3 01/13/17 12:10 Fluid Seg Neutrophils 85.0 % 01/13/17 12:10 Fluid Lymphocytes 8.0 % 01/13/17 12:10 Fluid Reactive Lymphs 0 % 01/13/17 12:10 Fluid Monocytes 6.0 % 01/13/17 12:10 Fluid Eosinophils 1.0 % 01/13/17 12:10 Fluid Basophils 0 % 01/13/17 12:10 Fluid Total Protein 3.0 (15.0-45.0) L 01/13/17 12:10 Fluid LDH 1322 01/13/17 12:10 Fluid Comment Diff performed 01/13/17 12:10 Vancomycin Trough 2.3 ug/mL (5.0-20.0) L 09/21/16 13:00 Random Vancomycin 16.5 ug/mL (0-40.0) 11/28/16 09:45 Urine Opiates Screen Presumptive negative 09/03/16 15:11 Urine Methadone Screen Presumptive positive 09/03/16 15:11 Ur Barbiturates Screen Presumptive positive 09/03/16 15:11 Ur Phencyclidine Scrn Presumptive negative 09/03/16 15:11 Ur Amphetamines Screen Presumptive negative 09/03/16 15:11 U Benzodiazepines Scrn Presumptive negative 09/03/16 15:11 Urine Cocaine Screen Presumptive negative 09/03/16 15:11 U Marijuana (THC) Screen Presumptive positive 09/03/16 15:11 Drugs of Abuse Note Disclamer 09/03/16 15:11 Rheumatoid Factor 24 IU/ml (0-13) H 09/08/16 11:48 SAHIL Screen Negative (Negative) 09/07/16 09:20 Proteinase 3 (PR3) Ab <1.0 AI (<1.0) 09/07/16 09:20 Myeloperoxidase Ab <1.0 AI (<1.0) 09/07/16 09:20 Sjogren's Antibody <1.0 AI (<1.0) 09/08/16 15:35 Scl-70 Scleroderma Ab <1.0 AI (<1.0) 09/08/16 15:35 Centromere B Antibody <1.0 AI (<1.0) 09/08/16 12:02 Heparin-induced Plt Ab Negative (Negative) 09/29/16 13:35 UF Heparin High Dose 11 % Release 09/29/16 13:35 SUDHIR UFH Low Dose 0.1 6 % Release 09/29/16 13:35 SUDHIR UFH Low Dose 0.5 8 % Release 09/29/16 13:35 Cardiolipid IgG Ab <14 GPL (<=14) 09/12/16 09:59 Cardiolipid IgA Ab <11 APL (<=11) 09/12/16 09:59 Cardiolipid IgM Ab <12 MPL (<=12) 09/12/16 09:59 Complement C3 148 mg/dL (90-180) 09/07/16 09:20 Complement C4 58 mg/dL (16-47) H 09/07/16 09:20 RPR Nonreactive (Nonreactive) 09/08/16 11:48 Hepatitis A IgM Ab Non-reactive (NonReactive) 09/24/16 14:40 Hep Bs Antigen Non-reactive (Negative) 09/24/16 14:40 Hep B Core IgM Ab Non-reactive (NonReactive) 09/24/16 14:40 Hepatitis C Antibody Non-reactive (NonReactive) 09/24/16 14:40 HIV 1&2 Antibody Rapid Non react (Non React) 09/08/16 11:48 HIV P24 Antigen Non react (Non React) 09/08/16 11:48 Miscellaneous Test Flexitest 1 H 01/09/17 18:45 Blood Type A POSITIVE 02/12/17 10:25 Antibody Screen Negative 02/12/17 10:25 DELORIS Antibody Screen Negative 11/24/16 11:20 Crossmatch See Detail 02/12/17 10:25
[2017-02-19 10:28] LABS: Hematocrit 40.2 % (30.3-42.9); Hemoglobin 12.7 gm/dl (10.1-14.3); Mean Corpuscular HGB Conc 32 % (30-34); Mean Corpuscular Hemoglobin 27 pg (28-32); Mean Corpuscular Volume 86 fl (79-97); Platelet Count 180 K/mm3 (140-440); Red Blood Count 4.69 M/mm3 (3.65-5.03); Red Cell Distribution Width 19.2 % (13.2-15.2)
[2017-02-19 10:53] LABS: Calcium 9.7 mg/dL (8.4-10.2)
--- NOTE | 2017-02-19 11:55 | Progress Note ---
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 UF as tolerated. Patient's serum creatinine is noted to be low - due to wasting of muscle mass. Needs to be maintained on dialysis at this time. * hypercalcemia work up - likely due to immobilization * Adjust Ca bath with dialysis * Transfuse pRBC per primary team. Epogen TIW prn * Vent management per pulm/CCM * Pressors prn for MAP>65 * Dose medications for renal function Subjective Date of service: 02/19/17 Principal diagnosis: Acute resp failure on MVS; S/P Acute CVA; Acute Encephalopathy; JUANITA Interval history: new events from last pm noted Objective - Exam Narrative Exam: Gen. appearance: Patient lying in bed, no apparent distress, 4. restraints HEENT: Normocephalic, atraumatic, pupils equally round and reactive to light, extraocular movement intact, and no sclericterus,. No JVD or thyromegaly or nodule,neck supple, no carotid bruit ,mucous membranes moist, unable to examine oral cavity Heart: S1, S2, regular rate and rhythm Lungs: Clear to auscultation bilaterally, breathing comfortable Abdomen: Positive bowel sounds, nontender, nondistended, no organomegaly Extremity: No edema, cyanosis, clubbing Skin: No rash, nodules, warm, dry Neuro: Difficult to assess, facial droop, moves all 4 extremities - Vital Signs Vital signs: Vital Signs - 12hr 02/18/17 02/18/17 02/19/17 23:55 23:57 00:00 Temperature 98.6 F 98.8 F Pulse Rate 109 H Pulse Rate [ 102 H Apical] Pulse Rate [ 102 H From Monitor] Pulse Rate [ 102 H Left Dorsalis Pedis] Pulse Rate [ 102 H Left Radial] Pulse Rate [ 102 H Right Dorsalis Pedis] Pulse Rate [ 102 H Right Radial] Pulse Rate [ Throughout] Respiratory 25 H 25 H 22 Rate Respiratory Rate [ Throughout] Blood Pressure 133/88 155/83 O2 Sat by Pulse 98 98 98 Oximetry O2 Sat by Pulse Oximetry [ Assessment] 02/19/17 02/19/17 02/19/17 00:01 00:15 00:31 Temperature Pulse Rate 107 H 105 H 106 H Pulse Rate [ Apical] Pulse Rate [ From Monitor] Pulse Rate [ Left Dorsalis Pedis] Pulse Rate [ Left Radial] Pulse Rate [ Right Dorsalis Pedis] Pulse Rate [ Right Radial] Pulse Rate [ Throughout] Respiratory 23 30 H 25 H Rate Respiratory Rate [ Throughout] Blood Pressure 155/83 155/83 155/83 O2 Sat by Pulse 99 97 95 Oximetry O2 Sat by Pulse Oximetry [ Assessment] 02/19/17 02/19/17 02/19/17 00:45 01:00 01:15 Temperature Pulse Rate 107 H 103 H 104 H Pulse Rate [ Apical] Pulse Rate [ From Monitor] Pulse Rate [ Left Dorsalis Pedis] Pulse Rate [ Left Radial] Pulse Rate [ Right Dorsalis Pedis] Pulse Rate [ Right Radial] Pulse Rate [ Throughout] Respiratory 26 H 33 H 29 H Rate Respiratory Rate [ Throughout] Blood Pressure 155/83 130/75 130/75 O2 Sat by Pulse 97 96 96 Oximetry O2 Sat by Pulse Oximetry [ Assessment] 02/19/17 02/19/17 02/19/17 01:30 01:45 02:00 Temperature Pulse Rate 103 H 104 H 106 H Pulse Rate [ Apical] Pulse Rate [ From Monitor] Pulse Rate [ Left Dorsalis Pedis] Pulse Rate [ Left Radial] Pulse Rate [ Right Dorsalis Pedis] Pulse Rate [ Right Radial] Pulse Rate [ Throughout] Respiratory 27 H 23 25 H Rate Respiratory Rate [ Throughout] Blood Pressure 130/75 138/81 O2 Sat by Pulse 96 99 98 Oximetry O2 Sat by Pulse Oximetry [ Assessment] 02/19/17 02/19/17 02/19/17 02:15 02:31 02:45 Temperature Pulse Rate 104 H 102 H 104 H Pulse Rate [ Apical] Pulse Rate [ From Monitor] Pulse Rate [ Left Dorsalis Pedis] Pulse Rate [ Left Radial] Pulse Rate [ Right Dorsalis Pedis] Pulse Rate [ Right Radial] Pulse Rate [ Throughout] Respiratory 28 H 22 22 Rate Respiratory Rate [ Throughout] Blood Pressure 138/81 138/81 138/81 O2 Sat by Pulse 97 99 97 Oximetry O2 Sat by Pulse Oximetry [ Assessment] 02/19/17 02/19/17 02/19/17 03:00 03:15 03:31 Temperature Pulse Rate 106 H 117 H 118 H Pulse Rate [ Apical] Pulse Rate [ From Monitor] Pulse Rate [ Left Dorsalis Pedis] Pulse Rate [ Left Radial] Pulse Rate [ Right Dorsalis Pedis] Pulse Rate [ Right Radial] Pulse Rate [ Throughout] Respiratory 27 H 28 H 26 H Rate Respiratory Rate [ Throughout] Blood Pressure 142/83 142/83 142/83 O2 Sat by Pulse 99 Oximetry O2 Sat by Pulse Oximetry [ Assessment] 02/19/17 02/19/17 02/19/17 03:45 04:00 04:01 Temperature 98 F Pulse Rate 124 H Pulse Rate [ 118 H Apical] Pulse Rate [ 118 H From Monitor] Pulse Rate [ 118 H Left Dorsalis Pedis] Pulse Rate [ 118 H Left Radial] Pulse Rate [ 118 H Right Dorsalis Pedis] Pulse Rate [ 118 H Right Radial] Pulse Rate [ Throughout] Respiratory 30 H 18 26 H Rate Respiratory Rate [ Throughout] Blood Pressure 142/83 130/80 142/83 O2 Sat by Pulse 100 Oximetry O2 Sat by Pulse Oximetry [ Assessment] 02/19/17 02/19/17 02/19/17 04:13 04:15 04:31 Temperature 98.8 F Pulse Rate 113 H 111 H 102 H Pulse Rate [ Apical] Pulse Rate [ From Monitor] Pulse Rate [ Left Dorsalis Pedis] Pulse Rate [ Left Radial] Pulse Rate [ Right Dorsalis Pedis] Pulse Rate [ Right Radial] Pulse Rate [ Throughout] Respiratory 21 22 Rate Respiratory Rate [ Throughout] Blood Pressure 137/84 137/84 137/84 O2 Sat by Pulse 96 96 96 Oximetry O2 Sat by Pulse Oximetry [ Assessment] 02/19/17 02/19/17 02/19/17 04:45 05:00 05:15 Temperature Pulse Rate 101 H 101 H 101 H Pulse Rate [ Apical] Pulse Rate [ From Monitor] Pulse Rate [ Left Dorsalis Pedis] Pulse Rate [ Left Radial] Pulse Rate [ Right Dorsalis Pedis] Pulse Rate [ Right Radial] Pulse Rate [ Throughout] Respiratory 23 20 22 Rate Respiratory Rate [ Throughout] Blood Pressure 137/84 134/79 134/79 O2 Sat by Pulse 97 97 95 Oximetry O2 Sat by Pulse Oximetry [ Assessment] 02/19/17 02/19/17 02/19/17 05:31 05:45 06:00 Temperature Pulse Rate 99 H 98 H 98 H Pulse Rate [ Apical] Pulse Rate [ From Monitor] Pulse Rate [ Left Dorsalis Pedis] Pulse Rate [ Left Radial] Pulse Rate [ Right Dorsalis Pedis] Pulse Rate [ Right Radial] Pulse Rate [ Throughout] Respiratory 21 20 23 Rate Respiratory Rate [ Throughout] Blood Pressure 134/79 134/79 118/71 O2 Sat by Pulse 98 98 98 Oximetry O2 Sat by Pulse Oximetry [ Assessment] 02/19/17 02/19/17 02/19/17 06:15 06:31 06:45 Temperature Pulse Rate 96 H 105 H 96 H Pulse Rate [ Apical] Pulse Rate [ From Monitor] Pulse Rate [ Left Dorsalis Pedis] Pulse Rate [ Left Radial] Pulse Rate [ Right Dorsalis Pedis] Pulse Rate [ Right Radial] Pulse Rate [ Throughout] Respiratory 21 30 H 22 Rate Respiratory Rate [ Throughout] Blood Pressure 118/71 118/71 118/71 O2 Sat by Pulse 98 98 98 Oximetry O2 Sat by Pulse Oximetry [ Assessment] 02/19/17 02/19/17 02/19/17 07:00 07:15 07:31 Temperature Pulse Rate 93 H 95 H 96 H Pulse Rate [ Apical] Pulse Rate [ From Monitor] Pulse Rate [ Left Dorsalis Pedis] Pulse Rate [ Left Radial] Pulse Rate [ Right Dorsalis Pedis] Pulse Rate [ Right Radial] Pulse Rate [ Throughout] Respiratory 18 17 21 Rate Respiratory Rate [ Throughout] Blood Pressure 118/73 118/73 118/73 O2 Sat by Pulse 99 98 98 Oximetry O2 Sat by Pulse Oximetry [ Assessment] 02/19/17 02/19/17 02/19/17 07:45 08:00 08:15 Temperature 98.9 F Pulse Rate 97 H 95 H 92 H Pulse Rate [ Apical] Pulse Rate [ From Monitor] Pulse Rate [ Left Dorsalis Pedis] Pulse Rate [ Left Radial] Pulse Rate [ Right Dorsalis Pedis] Pulse Rate [ Right Radial] Pulse Rate [ Throughout] Respiratory 23 22 24 Rate Respiratory Rate [ Throughout] Blood Pressure 118/73 115/70 115/70 O2 Sat by Pulse 98 98 98 Oximetry O2 Sat by Pulse Oximetry [ Assessment] 02/19/17 02/19/17 02/19/17 08:31 08:45 09:01 Temperature Pulse Rate 91 H 92 H 99 H Pulse Rate [ Apical] Pulse Rate [ From Monitor] Pulse Rate [ Left Dorsalis Pedis] Pulse Rate [ Left Radial] Pulse Rate [ Right Dorsalis Pedis] Pulse Rate [ Right Radial] Pulse Rate [ Throughout] Respiratory 18 22 19 Rate Respiratory Rate [ Throughout] Blood Pressure 115/70 115/70 145/78 O2 Sat by Pulse 98 98 97 Oximetry O2 Sat by Pulse Oximetry [ Assessment] 02/19/17 02/19/17 02/19/17 09:15 09:25 09:31 Temperature Pulse Rate 102 H 103 H Pulse Rate [ Apical] Pulse Rate [ From Monitor] Pulse Rate [ Left Dorsalis Pedis] Pulse Rate [ Left Radial] Pulse Rate [ Right Dorsalis Pedis] Pulse Rate [ Right Radial] Pulse Rate [ 102 H 106 H Throughout] Respiratory 25 H 28 H Rate Respiratory 20 20 Rate [ Throughout] Blood Pressure 145/78 145/78 O2 Sat by Pulse 98 99 Oximetry O2 Sat by Pulse Oximetry [ Assessment] 02/19/17 02/19/17 02/19/17 09:40 09:45 10:00 Temperature Pulse Rate 95 H 97 H Pulse Rate [ Apical] Pulse Rate [ From Monitor] Pulse Rate [ Left Dorsalis Pedis] Pulse Rate [ Left Radial] Pulse Rate [ Right Dorsalis Pedis] Pulse Rate [ Right Radial] Pulse Rate [ Throughout] Respiratory 23 22 Rate Respiratory Rate [ Throughout] Blood Pressure 145/78 132/78 O2 Sat by Pulse 100 100 Oximetry O2 Sat by Pulse 98 Oximetry [ Assessment] 02/19/17 02/19/17 10:15 10:31 Temperature Pulse Rate 93 H 98 H Pulse Rate [ Apical] Pulse Rate [ From Monitor] Pulse Rate [ Left Dorsalis Pedis] Pulse Rate [ Left Radial] Pulse Rate [ Right Dorsalis Pedis] Pulse Rate [ Right Radial] Pulse Rate [ Throughout] Respiratory 22 33 H Rate Respiratory Rate [ Throughout] Blood Pressure 132/78 132/78 O2 Sat by Pulse 100 100 Oximetry O2 Sat by Pulse Oximetry [ Assessment] - Lab 02/19/17 09:45 02/19/17 09:45 Most recent lab results ABG pH 7.450 pH Units (7.350-7.450) 12/05/16 Unknown ABG pCO2 29.6 mm Hg 12/05/16 Unknown ABG pO2 75.2 mm Hg (80.0-90.0) L 12/05/16 Unknown ABG HCO3 20.1 mmol/L (20.0-26.0) 12/05/16 Unknown ABG O2 Saturation 96.8 % (95.0-99.0) 12/05/16 Unknown Calcium 9.7 mg/dL (8.4-10.2) 02/19/17 09:45 Phosphorus 4.70 mg/dL (2.5-4.5) H D 02/19/17 09:45 Magnesium 1.90 mg/dL (1.7-2.3) 02/19/17 09:45 Urine Creatinine 19.7 mg/dL (0.1-20.0) 11/12/16 10:18 Urine Sodium 36 mEq/L 09/16/16 19:19 Urine Total Protein 16 mg/dL (5-11.8) H 09/16/16 19:19
--- NOTE | 2017-02-19 15:19 | Progress Note ---
Assessment and Plan Patient is 46-year-old woman with a history of hypertension, diabetes mellitus, asthma, hyperlipidemia, chronic kidney disease and anxiety, who was brought in by family because she couldn't get her words out, her face was also twisted, she was admitted for acute CVA and accelerated hypertension, she had a hx of poor adherence with her medications, and uncontrolled hypertension. Patient's SBP on admission was noted be greater than 260. TPA was started but this it was discontinued after 5 minutes because her blood pressure became uncontrolled. The TPA was not initiated again because the patient was outside the TPA window. Patient has had a prolonged hospital stay complicated with recurrent severe sepsis. Patient with most recent event also status post cardiac arrest on 11/21/16 , with CPR and ROSC. Acute on chronic Hypoxemic Respiratory Failure Sepsis -recurrent s/p tracheostomy Hypertension Atrial Fibrillation with RVR Acute encephalopathy s/p CVA Oropharyngeal dysphagia Enterococcal bacteremia Sacral Decubitus Ulcer- unstageable s/p debridement Anemia Obesity JUANITA now on hemodialysis Enteric Fistula - VAP bundle addressed - continue NGT to LIS - continue wound care/wound vac per WCT - Vasopressor if MAP falls < 65mmHg - keep on with daily PSV trials and / or T-piece as tolerated - continue TPN administration (continue TPN; NPO except for meds) - continue airway clearance and secretion management - continue to wean FiO2 for sats > 94% - continue to monitor hemodynamics closely - continue HD/UF per nephrology - continue to follow electrolytes and correct as necessary - continue GI & VTE prophylaxis Transfuse 1 unit PRBC as needed to keep HgH>7g/dL .....she remains critically ill on life sustaining interventions including MVS and at risk for further deterioration including ...custodial prognosis remains poor - Patient Problems (1) Acute respiratory failure with hypoxia Current Visit: Yes Status: Acute (2) Acute blood loss anemia Current Visit: Yes Status: Resolved (3) Acute CVA (cerebrovascular accident) Current Visit: Yes Status: Acute (4) Chronic renal insufficiency Current Visit: Yes Status: Acute (5) Uncontrolled hypertension Current Visit: Yes Status: Acute (6) Leukocytosis (leucocytosis) Current Visit: Yes Status: Acute Qualifiers: Leukocytosis type: leukemoid reaction Qualified Code(s): D72.823 - Leukemoid reaction (7) Dislodged gastrostomy tube Current Visit: Yes Status: Acute (8) Fungemia Current Visit: Yes Status: Resolved (9) Cardiopulmonary arrest with successful resuscitation Current Visit: Yes Status: Acute Subjective Date of service: 02/19/17 Principal diagnosis: Acute resp failure on MVS; S/P Acute CVA; Acute Encephalopathy; JUANITA Interval history: Patient is seen today for: Acute resp failure on MVS; S/P Acute CVA; Acute Encephalopathy; JUANITA Seen and examined at bedside; 24hour events reviewed; nursing and respiratory care staff consulted; no adverse overnight events reported to me; she remains critically ill Patient was made DNR on 02/12/2017 by family, see hospitalist documentation. Draining feces from the abdominal pouch Vitals, labs, medications, chart reviewed. Discussed with RT Objective - Exam Narrative Exam: General appearance: alert non communicative, on the vent via trach in mild resp distress, no following commands Eyes: anicteric sclera, moist conjunctivae; PERRLA HENT: Atraumatic; oropharynx limited; Normal external ears. +NGT with greenish secretion Neck: +trach in place; supple, no thyromegaly or lymphadenopathy Lungs: rbit coarse BS CV: tachy Abdomen: Soft, tender, +old PEG site no drainage. +iliostomy. Right sided Surgical site x 2 with ostomy bags Extremities: +peripheral edema Skin: sacral area wounds - Neuro: alert non verbal on the vent. Lines: PICC / gutierrez Vital Signs - 12hr 02/19/17 02/19/17 02/19/17 03:31 03:45 04:00 Temperature 98 F Pulse Rate 118 H 124 H Pulse Rate [ 118 H Apical] Pulse Rate [ 118 H From Monitor] Pulse Rate [ 118 H Left Dorsalis Pedis] Pulse Rate [ 118 H Left Radial] Pulse Rate [ 118 H Right Dorsalis Pedis] Pulse Rate [ 118 H Right Radial] Pulse Rate [ Throughout] Respiratory 26 H 30 H 18 Rate Respiratory Rate [ Throughout] Blood Pressure 142/83 142/83 130/80 O2 Sat by Pulse 100 Oximetry O2 Sat by Pulse Oximetry [ Assessment] 02/19/17 02/19/17 02/19/17 04:01 04:13 04:15 Temperature 98.8 F Pulse Rate 113 H 111 H Pulse Rate [ Apical] Pulse Rate [ From Monitor] Pulse Rate [ Left Dorsalis Pedis] Pulse Rate [ Left Radial] Pulse Rate [ Right Dorsalis Pedis] Pulse Rate [ Right Radial] Pulse Rate [ Throughout] Respiratory 26 H 21 Rate Respiratory Rate [ Throughout] Blood Pressure 142/83 137/84 137/84 O2 Sat by Pulse 96 96 Oximetry O2 Sat by Pulse Oximetry [ Assessment] 02/19/17 02/19/17 02/19/17 04:31 04:45 05:00 Temperature Pulse Rate 102 H 101 H 101 H Pulse Rate [ Apical] Pulse Rate [ From Monitor] Pulse Rate [ Left Dorsalis Pedis] Pulse Rate [ Left Radial] Pulse Rate [ Right Dorsalis Pedis] Pulse Rate [ Right Radial] Pulse Rate [ Throughout] Respiratory 22 23 20 Rate Respiratory Rate [ Throughout] Blood Pressure 137/84 137/84 134/79 O2 Sat by Pulse 96 97 97 Oximetry O2 Sat by Pulse Oximetry [ Assessment] 02/19/17 02/19/17 02/19/17 05:15 05:31 05:45 Temperature Pulse Rate 101 H 99 H 98 H Pulse Rate [ Apical] Pulse Rate [ From Monitor] Pulse Rate [ Left Dorsalis Pedis] Pulse Rate [ Left Radial] Pulse Rate [ Right Dorsalis Pedis] Pulse Rate [ Right Radial] Pulse Rate [ Throughout] Respiratory 22 21 20 Rate Respiratory Rate [ Throughout] Blood Pressure 134/79 134/79 134/79 O2 Sat by Pulse 95 98 98 Oximetry O2 Sat by Pulse Oximetry [ Assessment] 02/19/17 02/19/17 02/19/17 06:00 06:15 06:31 Temperature Pulse Rate 98 H 96 H 105 H Pulse Rate [ Apical] Pulse Rate [ From Monitor] Pulse Rate [ Left Dorsalis Pedis] Pulse Rate [ Left Radial] Pulse Rate [ Right Dorsalis Pedis] Pulse Rate [ Right Radial] Pulse Rate [ Throughout] Respiratory 23 21 30 H Rate Respiratory Rate [ Throughout] Blood Pressure 118/71 118/71 118/71 O2 Sat by Pulse 98 98 98 Oximetry O2 Sat by Pulse Oximetry [ Assessment] 02/19/17 02/19/17 02/19/17 06:45 07:00 07:15 Temperature Pulse Rate 96 H 93 H 95 H Pulse Rate [ Apical] Pulse Rate [ From Monitor] Pulse Rate [ Left Dorsalis Pedis] Pulse Rate [ Left Radial] Pulse Rate [ Right Dorsalis Pedis] Pulse Rate [ Right Radial] Pulse Rate [ Throughout] Respiratory 22 18 17 Rate Respiratory Rate [ Throughout] Blood Pressure 118/71 118/73 118/73 O2 Sat by Pulse 98 99 98 Oximetry O2 Sat by Pulse Oximetry [ Assessment] 02/19/17 02/19/17 02/19/17 07:31 07:45 08:00 Temperature 98.9 F Pulse Rate 96 H 97 H 95 H Pulse Rate [ Apical] Pulse Rate [ From Monitor] Pulse Rate [ Left Dorsalis Pedis] Pulse Rate [ Left Radial] Pulse Rate [ Right Dorsalis Pedis] Pulse Rate [ Right Radial] Pulse Rate [ Throughout] Respiratory 21 23 22 Rate Respiratory Rate [ Throughout] Blood Pressure 118/73 118/73 115/70 O2 Sat by Pulse 98 98 98 Oximetry O2 Sat by Pulse Oximetry [ Assessment] 02/19/17 02/19/17 02/19/17 08:15 08:31 08:45 Temperature Pulse Rate 92 H 91 H 92 H Pulse Rate [ Apical] Pulse Rate [ From Monitor] Pulse Rate [ Left Dorsalis Pedis] Pulse Rate [ Left Radial] Pulse Rate [ Right Dorsalis Pedis] Pulse Rate [ Right Radial] Pulse Rate [ Throughout] Respiratory 24 18 22 Rate Respiratory Rate [ Throughout] Blood Pressure 115/70 115/70 115/70 O2 Sat by Pulse 98 98 98 Oximetry O2 Sat by Pulse Oximetry [ Assessment] 02/19/17 02/19/17 02/19/17 09:01 09:15 09:25 Temperature Pulse Rate 99 H 102 H Pulse Rate [ Apical] Pulse Rate [ From Monitor] Pulse Rate [ Left Dorsalis Pedis] Pulse Rate [ Left Radial] Pulse Rate [ Right Dorsalis Pedis] Pulse Rate [ Right Radial] Pulse Rate [ 102 H 106 H Throughout] Respiratory 19 25 H Rate Respiratory 20 20 Rate [ Throughout] Blood Pressure 145/78 145/78 O2 Sat by Pulse 97 98 Oximetry O2 Sat by Pulse Oximetry [ Assessment] 02/19/17 02/19/17 02/19/17 09:31 09:40 09:45 Temperature Pulse Rate 103 H 95 H Pulse Rate [ Apical] Pulse Rate [ From Monitor] Pulse Rate [ Left Dorsalis Pedis] Pulse Rate [ Left Radial] Pulse Rate [ Right Dorsalis Pedis] Pulse Rate [ Right Radial] Pulse Rate [ Throughout] Respiratory 28 H 23 Rate Respiratory Rate [ Throughout] Blood Pressure 145/78 145/78 O2 Sat by Pulse 99 100 Oximetry O2 Sat by Pulse 98 Oximetry [ Assessment] 02/19/17 02/19/1717 10:00 10:15 10:31 Temperature Pulse Rate 97 H 93 H 98 H Pulse Rate [ Apical] Pulse Rate [ From Monitor] Pulse Rate [ Left Dorsalis Pedis] Pulse Rate [ Left Radial] Pulse Rate [ Right Dorsalis Pedis] Pulse Rate [ Right Radial] Pulse Rate [ Throughout] Respiratory 22 22 33 H Rate Respiratory Rate [ Throughout] Blood Pressure 132/78 132/78 132/78 O2 Sat by Pulse 100 100 100 Oximetry O2 Sat by Pulse Oximetry [ Assessment] 02/19/17 02/19/17 02/19/17 10:45 11:00 11:15 Temperature Pulse Rate 95 H 97 H 95 H Pulse Rate [ Apical] Pulse Rate [ From Monitor] Pulse Rate [ Left Dorsalis Pedis] Pulse Rate [ Left Radial] Pulse Rate [ Right Dorsalis Pedis] Pulse Rate [ Right Radial] Pulse Rate [ Throughout] Respiratory 22 24 25 H Rate Respiratory Rate [ Throughout] Blood Pressure 132/78 149/84 132/78 O2 Sat by Pulse 100 100 100 Oximetry O2 Sat by Pulse Oximetry [ Assessment] 02/19/17 02/19/17 02/19/17 11:31 11:45 12:00 Temperature Pulse Rate 97 H 99 H 92 H Pulse Rate [ Apical] Pulse Rate [ From Monitor] Pulse Rate [ Left Dorsalis Pedis] Pulse Rate [ Left Radial] Pulse Rate [ Right Dorsalis Pedis] Pulse Rate [ Right Radial] Pulse Rate [ Throughout] Respiratory 21 26 H 21 Rate Respiratory Rate [ Throughout] Blood Pressure 132/78 149/84 139/81 O2 Sat by Pulse 100 100 100 Oximetry O2 Sat by Pulse Oximetry [ Assessment] 02/19/17 02/19/17 02/19/17 12:15 12:20 12:31 Temperature Pulse Rate 95 H 93 H 102 H Pulse Rate [ Apical] Pulse Rate [ From Monitor] Pulse Rate [ Left Dorsalis Pedis] Pulse Rate [ Left Radial] Pulse Rate [ Right Dorsalis Pedis] Pulse Rate [ Right Radial] Pulse Rate [ Throughout] Respiratory 22 23 27 H Rate Respiratory Rate [ Throughout] Blood Pressure 139/81 139/81 139/81 O2 Sat by Pulse 100 100 100 Oximetry O2 Sat by Pulse Oximetry [ Assessment] 02/19/17 02/19/17 02/19/17 13:30 13:37 13:45 Temperature Pulse Rate 104 H Pulse Rate [ Apical] Pulse Rate [ From Monitor] Pulse Rate [ Left Dorsalis Pedis] Pulse Rate [ Left Radial] Pulse Rate [ Right Dorsalis Pedis] Pulse Rate [ Right Radial] Pulse Rate [ 103 H 106 H Throughout] Respiratory 30 H Rate Respiratory 31 H 28 H Rate [ Throughout] Blood Pressure 150/93 O2 Sat by Pulse 100 Oximetry O2 Sat by Pulse Oximetry [ Assessment] Constitutional: appears uncomfortable, other (not tracking) Eyes: non-icteric, other (tracheostomy tube in midline of neck) ENT: oropharynx moist, oropharyngeal exudate pre, other (midline tracheostomy tube) Neck: supple, no lymphadenopathy, no JVD, other (no thyromegaly) Effort: mildly labored Ascultation: Bilateral: clear, diminished breath sounds, rales, rhonchi (and referred upper airway sounds) Percussion: Right: dull (base), Bilateral: not dull Cardiovascular: regular rate and rhythm, other (no rubs / murmurs) Gastrointestinal: hypoactive bowel sounds, soft, non-tender, non-distended, other (RLQ & LUQ stomas with colostomy bags) Integumentary: decubitus ulcer (sacral; stage 4 s/p surgical debridement), other (no rash; no cellulitis; poor turgor) Extremities: no cyanosis, pulses normal, no ischemia or petechiae, edema (1+ bilaterally) Neurologic: pupils equal and round, unable to assess, other (encephalopathic) Psychiatric: other (unable to assess) CBC and BMP: 02/19/17 09:45 02/21/17 04:09 ABG, PT/INR, D-dimer: ABG POC ABG pH 7.436 (7.35-7.45) 01/20/17 12: ABG pH 7.450 pH Units (7.350-7.450) 12/05/16 Unknown POC ABG pCO2 35.3 (35-45) 01/20/17 12: ABG pCO2 29.6 mm Hg 12/05/16 Unknown POC ABG pO2 70 (80-105) L 01/20/17 12: ABG pO2 75.2 mm Hg (80.0-90.0) L 12/05/16 Unknown POC ABG HCO3 23.8 01/20/17 12:17 POC ABG Total CO2 25 01/20/17 12:17 POC ABG O2 Sat 94 01/20/17 12:17 ABG O2 Saturation 96.8 % (95.0-99.0) 12/05/16 Unknown PT/INR, D-dimer PT 15.4 Sec. (12.2-14.9) H 01/13/17 15:50 INR 1.16 (0.87-1.13) H 01/13/17 15:50 Abnormal lab findings: Abnormal Labs 09/03/16 09/03/16 09/03/16 00:03 00:10 00:10 WBC 13.9 H RBC 5.95 H Hgb Hct 44.0 H MCV 74 L MCH 22 L MCHC RDW 17.5 H Plt Count Lymph % (Auto) [place] % (Auto) Lymph # [place] # Baso # Seg Neutrophils % Seg Neuts % (Manual) Lymphocytes % (Manual) 54.0 H Monocytes % (Manual) Eosinophils % (Manual) Basophils % (Manual) Nucleated RBC % Seg Neutrophils # Seg Neutrophils # Man Lymphocytes # (Manual) 7.5 H Monocytes # (Manual) Eosinophils # (Manual) Basophils # (Manual) PT INR Fibrinogen dRVVT Confirm Interp Factor V Activity POC ABG pH POC ABG pCO2 POC ABG pO2 ABG pO2 ABG HCO3 ABG Base Excess ABG Hemoglobin Oxyhemoglobin Sodium Potassium 2.8 L* Chloride Carbon Dioxide 21 L BUN Creatinine 1.7 H Glucose 159 H POC Glucose 177 H Lactic Acid Calcium Ionized Calcium Phosphorus Magnesium Direct Bilirubin AST ALT Alkaline Phosphatase Lactate Dehydrogenase Troponin T C-Reactive Protein Total Protein Albumin Prealbumin Triglycerides Cholesterol LDL Cholesterol Direct HDL Cholesterol 25-OH Vitamin D Total PTH Intact Urine pH Urine WBC (Auto) Urine Creatinine Urine Total Protein Fluid Total Protein Vancomycin Trough Rheumatoid Factor Complement C4 Miscellaneous Test Crossmatch 09/03/16 09/03/16 09/03/16 12:12 15:07 16:20 WBC RBC Hgb Hct MCV MCH MCHC RDW Plt Count Lymph % (Auto) [place] % (Auto) Lymph # [place] # Baso # Seg Neutrophils % Seg Neuts % (Manual) Lymphocytes % (Manual) Monocytes % (Manual) Eosinophils % (Manual) Basophils % (Manual) Nucleated RBC % Seg Neutrophils # Seg Neutrophils # Man Lymphocytes # (Manual) Monocytes # (Manual) Eosinophils # (Manual) Basophils # (Manual) PT INR Fibrinogen dRVVT Confirm Interp Factor V Activity POC ABG pH 7.452 H POC ABG pCO2 POC ABG pO2 ABG pO2 ABG HCO3 ABG Base Excess ABG Hemoglobin Oxyhemoglobin Sodium Potassium Chloride Carbon Dioxide BUN Creatinine Glucose POC Glucose 178 H Lactic Acid Calcium Ionized Calcium Phosphorus 2.20 L Magnesium 1.60 L Direct Bilirubin AST ALT Alkaline Phosphatase Lactate Dehydrogenase Troponin T C-Reactive Protein Total Protein Albumin Prealbumin Triglycerides Cholesterol LDL Cholesterol Direct HDL Cholesterol 25-OH Vitamin D Total PTH Intact Urine pH Urine WBC (Auto) Urine Creatinine Urine Total Protein Fluid Total Protein Vancomycin Trough Rheumatoid Factor Complement C4 Miscellaneous Test Crossmatch 09/03/16 09/03/16 09/03/16 17:57 17:58 23:50 WBC RBC Hgb Hct MCV MCH MCHC RDW Plt Count Lymph % (Auto) [place] % (Auto) Lymph # [place] # Baso # Seg Neutrophils % Seg Neuts % (Manual) Lymphocytes % (Manual) Monocytes % (Manual) Eosinophils % (Manual) Basophils % (Manual) Nucleated RBC % Seg Neutrophils # Seg Neutrophils # Man Lymphocytes # (Manual) Monocytes # (Manual) Eosinophils # (Manual) Basophils # (Manual) PT INR Fibrinogen dRVVT Confirm Interp Factor V Activity POC ABG pH POC ABG pCO2 POC ABG pO2 ABG pO2 ABG HCO3 ABG Base Excess ABG Hemoglobin Oxyhemoglobin Sodium Potassium Chloride Carbon Dioxide BUN Creatinine Glucose POC Glucose 162 H 145 H Lactic Acid Calcium Ionized Calcium Phosphorus 2.30 L Magnesium Direct Bilirubin AST ALT Alkaline Phosphatase Lactate Dehydrogenase Troponin T C-Reactive Protein Total Protein Albumin Prealbumin Triglycerides Cholesterol LDL Cholesterol Direct HDL Cholesterol 25-OH Vitamin D Total PTH Intact Urine pH Urine WBC (Auto) Urine Creatinine Urine Total Protein Fluid Total Protein Vancomycin Trough Rheumatoid Factor Complement C4 Miscellaneous Test Crossmatch 09/04/16 09/04/16 09/04/16 03:31 03:31 05:42 WBC RBC Hgb 9.7 L D Hct MCV 72 L MCH 23 L MCHC RDW 17.5 H Plt Count Lymph % (Auto) 11.1 L [place] % (Auto) Lymph # [place] # Baso # Seg Neutrophils % 84.3 H Seg Neuts % (Manual) Lymphocytes % (Manual) Monocytes % (Manual) Eosinophils % (Manual) Basophils % (Manual) Nucleated RBC % Seg Neutrophils # 8.9 H Seg Neutrophils # Man Lymphocytes # (Manual) Monocytes # (Manual) Eosinophils # (Manual) Basophils # (Manual) PT INR Fibrinogen dRVVT Confirm Interp Factor V Activity POC ABG pH POC ABG pCO2 POC ABG pO2 ABG pO2 ABG HCO3 ABG Base Excess ABG Hemoglobin Oxyhemoglobin Sodium 135 L Potassium 2.9 L* Chloride 97.2 L Carbon Dioxide 19 L BUN Creatinine 1.7 H Glucose 170 H POC Glucose 152 H Lactic Acid Calcium Ionized Calcium Phosphorus Magnesium Direct Bilirubin AST ALT Alkaline Phosphatase Lactate Dehydrogenase Troponin T C-Reactive Protein Total Protein Albumin Prealbumin Triglycerides 160 H Cholesterol LDL Cholesterol Direct HDL Cholesterol 31 L 25-OH Vitamin D Total PTH Intact Urine pH Urine WBC (Auto) Urine Creatinine Urine Total Protein Fluid Total Protein Vancomycin Trough Rheumatoid Factor Complement C4 Miscellaneous Test Crossmatch 09/04/16 09/04/16 09/04/16 11:34 17:46 23:29 WBC RBC Hgb Hct MCV MCH MCHC RDW Plt Count Lymph % (Auto) [place] % (Auto) Lymph # [place] # Baso # Seg Neutrophils % Seg Neuts % (Manual) Lymphocytes % (Manual) Monocytes % (Manual) Eosinophils % (Manual) Basophils % (Manual) Nucleated RBC % Seg Neutrophils # Seg Neutrophils # Man Lymphocytes # (Manual) Monocytes # (Manual) Eosinophils # (Manual) Basophils # (Manual) PT INR Fibrinogen dRVVT Confirm Interp Factor V Activity POC ABG pH POC ABG pCO2 POC ABG pO2 ABG pO2 ABG HCO3 ABG Base Excess ABG Hemoglobin Oxyhemoglobin Sodium Potassium Chloride Carbon Dioxide BUN Creatinine Glucose POC Glucose 165 H 210 H 139 H Lactic Acid Calcium Ionized Calcium Phosphorus Magnesium Direct Bilirubin AST ALT Alkaline Phosphatase Lactate Dehydrogenase Troponin T C-Reactive Protein Total Protein Albumin Prealbumin Triglycerides Cholesterol LDL Cholesterol Direct HDL Cholesterol 25-OH Vitamin D Total PTH Intact Urine pH Urine WBC (Auto) Urine Creatinine Urine Total Protein Fluid Total Protein Vancomycin Trough Rheumatoid Factor Complement C4 Miscellaneous Test Crossmatch 09/05/16 09/05/16 09/05/16 04:05 04:05 05:38 WBC RBC Hgb Hct MCV 76 L D MCH 23 L MCHC RDW 17.8 H Plt Count Lymph % (Auto) [place] % (Auto) Lymph # [place] # Baso # Seg Neutrophils % Seg Neuts % (Manual) Lymphocytes % (Manual) Monocytes % (Manual) Eosinophils % (Manual) Basophils % (Manual) Nucleated RBC % Seg Neutrophils # Seg Neutrophils # Man Lymphocytes # (Manual) Monocytes # (Manual) Eosinophils # (Manual) Basophils # (Manual) PT INR Fibrinogen dRVVT Confirm Interp Factor V Activity POC ABG pH POC ABG pCO2 POC ABG pO2 ABG pO2 ABG HCO3 ABG Base Excess ABG Hemoglobin Oxyhemoglobin Sodium 134 L Potassium Chloride Carbon Dioxide 18 L BUN Creatinine 1.8 H Glucose 192 H POC Glucose 175 H Lactic Acid Calcium Ionized Calcium Phosphorus Magnesium Direct Bilirubin AST ALT Alkaline Phosphatase Lactate Dehydrogenase Troponin T C-Reactive Protein Total Protein Albumin Prealbumin Triglycerides Cholesterol LDL Cholesterol Direct HDL Cholesterol 25-OH Vitamin D Total PTH Intact Urine pH Urine WBC (Auto) Urine Creatinine Urine Total Protein Fluid Total Protein Vancomycin Trough Rheumatoid Factor Complement C4 Miscellaneous Test Crossmatch 09/05/16 09/05/16 09/05/16 11:38 17:48 23:22 WBC RBC Hgb Hct MCV MCH MCHC RDW Plt Count Lymph % (Auto) [place] % (Auto) Lymph # [place] # Baso # Seg Neutrophils % Seg Neuts % (Manual) Lymphocytes % (Manual) Monocytes % (Manual) Eosinophils % (Manual) Basophils % (Manual) Nucleated RBC % Seg Neutrophils # Seg Neutrophils # Man Lymphocytes # (Manual) Monocytes # (Manual) Eosinophils # (Manual) Basophils # (Manual) PT INR Fibrinogen dRVVT Confirm Interp Factor V Activity POC ABG pH POC ABG pCO2 POC ABG pO2 ABG pO2 ABG HCO3 ABG Base Excess ABG Hemoglobin Oxyhemoglobin Sodium Potassium Chloride Carbon Dioxide BUN Creatinine Glucose POC Glucose 164 H 186 H 195 H Lactic Acid Calcium Ionized Calcium Phosphorus Magnesium Direct Bilirubin AST ALT Alkaline Phosphatase Lactate Dehydrogenase Troponin T C-Reactive Protein Total Protein Albumin Prealbumin Triglycerides Cholesterol LDL Cholesterol Direct HDL Cholesterol 25-OH Vitamin D Total PTH Intact Urine pH Urine WBC (Auto) Urine Creatinine Urine Total Protein Fluid Total Protein Vancomycin Trough Rheumatoid Factor Complement C4 Miscellaneous Test Crossmatch 09/06/16 09/06/16 09/06/16 04:12 05:59 07:32 WBC RBC Hgb Hct MCV MCH MCHC RDW Plt Count Lymph % (Auto) [place] % (Auto) Lymph # [place] # Baso # Seg Neutrophils % Seg Neuts % (Manual) Lymphocytes % (Manual) Monocytes % (Manual) Eosinophils % (Manual) Basophils % (Manual) Nucleated RBC % Seg Neutrophils # Seg Neutrophils # Man Lymphocytes # (Manual) Monocytes # (Manual) Eosinophils # (Manual) Basophils # (Manual) PT INR Fibrinogen dRVVT Confirm Interp Factor V Activity POC ABG pH 7.514 H POC ABG pCO2 29.1 L POC ABG pO2 72 L ABG pO2 ABG HCO3 ABG Base Excess ABG Hemoglobin Oxyhemoglobin Sodium 133 L Potassium 3.4 L Chloride 94.9 L Carbon Dioxide 19 L BUN 30 H Creatinine 2.1 H Glucose 139 H POC Glucose 146 H Lactic Acid Calcium Ionized Calcium Phosphorus Magnesium Direct Bilirubin AST ALT Alkaline Phosphatase Lactate Dehydrogenase Troponin T C-Reactive Protein Total Protein Albumin Prealbumin Triglycerides Cholesterol LDL Cholesterol Direct HDL Cholesterol 25-OH Vitamin D Total PTH Intact Urine pH Urine WBC (Auto) Urine Creatinine Urine Total Protein Fluid Total Protein Vancomycin Trough Rheumatoid Factor Complement C4 Miscellaneous Test Crossmatch 09/06/16 09/06/16 09/06/16 11:57 17:58 19:02 WBC RBC Hgb Hct MCV MCH MCHC RDW Plt Count Lymph % (Auto) [place] % (Auto) Lymph # [place] # Baso # Seg Neutrophils % Seg Neuts % (Manual) Lymphocytes % (Manual) Monocytes % (Manual) Eosinophils % (Manual) Basophils % (Manual) Nucleated RBC % Seg Neutrophils # Seg Neutrophils # Man Lymphocytes # (Manual) Monocytes # (Manual) Eosinophils # (Manual) Basophils # (Manual) PT INR Fibrinogen dRVVT Confirm Interp Factor V Activity POC ABG pH 7.465 H POC ABG pCO2 32.0 L POC ABG pO2 ABG pO2 ABG HCO3 ABG Base Excess ABG Hemoglobin Oxyhemoglobin Sodium Potassium Chloride Carbon Dioxide BUN Creatinine Glucose POC Glucose 165 H 160 H Lactic Acid Calcium Ionized Calcium Phosphorus Magnesium Direct Bilirubin AST ALT Alkaline Phosphatase Lactate Dehydrogenase Troponin T C-Reactive Protein Total Protein Albumin Prealbumin Triglycerides Cholesterol LDL Cholesterol Direct HDL Cholesterol 25-OH Vitamin D Total PTH Intact Urine pH Urine WBC (Auto) Urine Creatinine Urine Total Protein Fluid Total Protein Vancomycin Trough Rheumatoid Factor Complement C4 Miscellaneous Test Crossmatch 09/06/16 09/07/16 09/07/16 23:45 02:47 02:47 WBC RBC Hgb Hct MCV MCH MCHC RDW Plt Count Lymph % (Auto) [place] % (Auto) Lymph # [place] # Baso # Seg Neutrophils % Seg Neuts % (Manual) Lymphocytes % (Manual) Monocytes % (Manual) Eosinophils % (Manual) Basophils % (Manual) Nucleated RBC % Seg Neutrophils # Seg Neutrophils # Man Lymphocytes # (Manual) Monocytes # (Manual) Eosinophils # (Manual) Basophils # (Manual) PT INR Fibrinogen dRVVT Confirm Interp Factor V Activity POC ABG pH POC ABG pCO2 POC ABG pO2 ABG pO2 ABG HCO3 ABG Base Excess ABG Hemoglobin Oxyhemoglobin Sodium Potassium Chloride Carbon Dioxide BUN Creatinine Glucose POC Glucose 204 H Lactic Acid Calcium Ionized Calcium Phosphorus Magnesium Direct Bilirubin AST ALT Alkaline Phosphatase Lactate Dehydrogenase Troponin T C-Reactive Protein Total Protein Albumin Prealbumin Triglycerides Cholesterol LDL Cholesterol Direct HDL Cholesterol 25-OH Vitamin D Total PTH Intact Urine pH Urine WBC (Auto) 68.0 H Urine Creatinine 106.1 H Urine Total Protein Fluid Total Protein Vancomycin Trough Rheumatoid Factor Complement C4 Miscellaneous Test Crossmatch 09/07/16 09/07/16 09/07/16 04:50 06:19 06:39 WBC RBC Hgb Hct MCV MCH MCHC RDW Plt Count Lymph % (Auto) [place] % (Auto) Lymph # [place] # Baso # Seg Neutrophils % Seg Neuts % (Manual) Lymphocytes % (Manual) Monocytes % (Manual) Eosinophils % (Manual) Basophils % (Manual) Nucleated RBC % Seg Neutrophils # Seg Neutrophils # Man Lymphocytes # (Manual) Monocytes # (Manual) Eosinophils # (Manual) Basophils # (Manual) PT INR Fibrinogen dRVVT Confirm Interp Factor V Activity POC ABG pH 7.457 H POC ABG pCO2 32.1 L POC ABG pO2 76 L ABG pO2 ABG HCO3 ABG Base Excess ABG Hemoglobin Oxyhemoglobin Sodium 132 L Potassium Chloride 94.7 L Carbon Dioxide BUN 53 H Creatinine 2.9 H Glucose 151 H POC Glucose 149 H Lactic Acid Calcium Ionized Calcium Phosphorus Magnesium Direct Bilirubin AST ALT Alkaline Phosphatase Lactate Dehydrogenase Troponin T C-Reactive Protein Total Protein Albumin Prealbumin Triglycerides Cholesterol LDL Cholesterol Direct HDL Cholesterol 25-OH Vitamin D Total PTH Intact Urine pH Urine WBC (Auto) Urine Creatinine Urine Total Protein Fluid Total Protein Vancomycin Trough Rheumatoid Factor Complement C4 Miscellaneous Test Crossmatch 09/07/16 09/07/16 09/07/16 09:20 11:43 11:43 WBC 19.4 H RBC Hgb 8.3 L Hct 26.4 L D MCV 72 L D MCH 22 L MCHC RDW 17.9 H Plt Count Lymph % (Auto) 8.5 L [place] % (Auto) Lymph # [place] # 1.0 H Baso # Seg Neutrophils % 85.8 H Seg Neuts % (Manual) Lymphocytes % (Manual) Monocytes % (Manual) Eosinophils % (Manual) Basophils % (Manual) Nucleated RBC % Seg Neutrophils # 16.6 H Seg Neutrophils # Man Lymphocytes # (Manual) Monocytes # (Manual) Eosinophils # (Manual) Basophils # (Manual) PT INR Fibrinogen dRVVT Confirm Interp Factor V Activity POC ABG pH POC ABG pCO2 POC ABG pO2 ABG pO2 ABG HCO3 ABG Base Excess ABG Hemoglobin Oxyhemoglobin Sodium 134 L Potassium Chloride 97.2 L Carbon Dioxide 20 L BUN 58 H Creatinine 2.9 H Glucose 147 H POC Glucose Lactic Acid Calcium Ionized Calcium Phosphorus 2.40 L Magnesium 2.40 H Direct Bilirubin AST ALT Alkaline Phosphatase Lactate Dehydrogenase Troponin T C-Reactive Protein Total Protein 5.8 L Albumin 2.2 L Prealbumin Triglycerides Cholesterol LDL Cholesterol Direct HDL Cholesterol 25-OH Vitamin D Total PTH Intact Urine pH Urine WBC (Auto) Urine Creatinine Urine Total Protein Fluid Total Protein Vancomycin Trough Rheumatoid Factor Complement C4 58 H Miscellaneous Test Crossmatch 09/07/16 09/07/16 09/07/16 11:50 16:00 17:31 WBC RBC Hgb Hct MCV MCH MCHC RDW Plt Count Lymph % (Auto) [place] % (Auto) Lymph # [place] # Baso # Seg Neutrophils % Seg Neuts % (Manual) Lymphocytes % (Manual) Monocytes % (Manual) Eosinophils % (Manual) Basophils % (Manual) Nucleated RBC % Seg Neutrophils # Seg Neutrophils # Man Lymphocytes # (Manual) Monocytes # (Manual) Eosinophils # (Manual) Basophils # (Manual) PT INR Fibrinogen dRVVT Confirm Interp Factor V Activity POC ABG pH POC ABG pCO2 POC ABG pO2 158 H ABG pO2 ABG HCO3 ABG Base Excess ABG Hemoglobin Oxyhemoglobin Sodium Potassium Chloride Carbon Dioxide BUN Creatinine Glucose POC Glucose 175 H Lactic Acid Calcium Ionized Calcium Phosphorus Magnesium Direct Bilirubin AST ALT Alkaline Phosphatase Lactate Dehydrogenase Troponin T C-Reactive Protein Total Protein Albumin Prealbumin Triglycerides Cholesterol LDL Cholesterol Direct HDL Cholesterol 25-OH Vitamin D Total PTH Intact Urine pH Urine WBC (Auto) Urine Creatinine 66.3 H Urine Total Protein Fluid Total Protein Vancomycin Trough Rheumatoid Factor Complement C4 Miscellaneous Test Crossmatch 09/07/16 09/08/16 09/08/16 23:50 05:46 06:18 WBC 17.8 H RBC 3.58 L Hgb 8.1 L Hct 25.5 L MCV 71 L MCH 23 L MCHC RDW 18.4 H Plt Count Lymph % (Auto) [place] % (Auto) Lymph # [place] # Baso # Seg Neutrophils % Seg Neuts % (Manual) 92.0 H Lymphocytes % (Manual) 6.0 L Monocytes % (Manual) Eosinophils % (Manual) Basophils % (Manual) Nucleated RBC % Seg Neutrophils # Seg Neutrophils # Man 16.4 H Lymphocytes # (Manual) 1.1 L Monocytes # (Manual) Eosinophils # (Manual) Basophils # (Manual) PT INR Fibrinogen dRVVT Confirm Interp Factor V Activity POC ABG pH POC ABG pCO2 34.3 L POC ABG pO2 71 L ABG pO2 ABG HCO3 ABG Base Excess ABG Hemoglobin Oxyhemoglobin Sodium Potassium Chloride Carbon Dioxide BUN Creatinine Glucose POC Glucose 216 H Lactic Acid Calcium Ionized Calcium Phosphorus Magnesium Direct Bilirubin AST ALT Alkaline Phosphatase Lactate Dehydrogenase Troponin T C-Reactive Protein Total Protein Albumin Prealbumin Triglycerides Cholesterol LDL Cholesterol Direct HDL Cholesterol 25-OH Vitamin D Total PTH Intact Urine pH Urine WBC (Auto) Urine Creatinine Urine Total Protein Fluid Total Protein Vancomycin Trough Rheumatoid Factor Complement C4 Miscellaneous Test Crossmatch 09/08/16 09/08/16 09/08/16 06:18 06:51 10:55 WBC RBC Hgb Hct MCV MCH MCHC RDW Plt Count Lymph % (Auto) [place] % (Auto) Lymph # [place] # Baso # Seg Neutrophils % Seg Neuts % (Manual) Lymphocytes % (Manual) Monocytes % (Manual) Eosinophils % (Manual) Basophils % (Manual) Nucleated RBC % Seg Neutrophils # Seg Neutrophils # Man Lymphocytes # (Manual) Monocytes # (Manual) Eosinophils # (Manual) Basophils # (Manual) PT INR Fibrinogen dRVVT Confirm Interp Factor V Activity POC ABG pH POC ABG pCO2 POC ABG pO2 ABG pO2 ABG HCO3 ABG Base Excess ABG Hemoglobin Oxyhemoglobin Sodium 133 L Potassium Chloride 96.9 L Carbon Dioxide 20 L BUN 63 H Creatinine 2.7 H Glucose 195 H POC Glucose 204 H 169 H Lactic Acid Calcium Ionized Calcium Phosphorus Magnesium Direct Bilirubin AST ALT Alkaline Phosphatase Lactate Dehydrogenase Troponin T C-Reactive Protein Total Protein Albumin Prealbumin Triglycerides Cholesterol LDL Cholesterol Direct HDL Cholesterol 25-OH Vitamin D Total PTH Intact Urine pH Urine WBC (Auto) Urine Creatinine Urine Total Protein Fluid Total Protein Vancomycin Trough Rheumatoid Factor Complement C4 Miscellaneous Test Crossmatch 09/08/16 09/08/16 09/08/16 11:48 11:48 11:48 WBC RBC Hgb Hct MCV MCH MCHC RDW Plt Count Lymph % (Auto) [place] % (Auto) Lymph # [place] # Baso # Seg Neutrophils % Seg Neuts % (Manual) Lymphocytes % (Manual) Monocytes % (Manual) Eosinophils % (Manual) Basophils % (Manual) Nucleated RBC % Seg Neutrophils # Seg Neutrophils # Man Lymphocytes # (Manual) Monocytes # (Manual) Eosinophils # (Manual) Basophils # (Manual) PT INR Fibrinogen 750 H dRVVT Confirm Interp Factor V Activity POC ABG pH POC ABG pCO2 POC ABG pO2 ABG pO2 ABG HCO3 ABG Base Excess ABG Hemoglobin Oxyhemoglobin Sodium Potassium Chloride Carbon Dioxide BUN Creatinine Glucose POC Glucose Lactic Acid Calcium Ionized Calcium Phosphorus Magnesium Direct Bilirubin AST ALT Alkaline Phosphatase Lactate Dehydrogenase Troponin T C-Reactive Protein 15.70 H Total Protein Albumin Prealbumin Triglycerides Cholesterol LDL Cholesterol Direct HDL Cholesterol 25-OH Vitamin D Total PTH Intact Urine pH Urine WBC (Auto) Urine Creatinine Urine Total Protein Fluid Total Protein Vancomycin Trough Rheumatoid Factor 24 H Complement C4 Miscellaneous Test Crossmatch 09/08/16 09/08/16 09/09/16 15:35 18:25 00:24 WBC RBC Hgb Hct MCV MCH MCHC RDW Plt Count Lymph % (Auto) [place] % (Auto) Lymph # [place] # Baso # Seg Neutrophils % Seg Neuts % (Manual) Lymphocytes % (Manual) Monocytes % (Manual) Eosinophils % (Manual) Basophils % (Manual) Nucleated RBC % Seg Neutrophils # Seg Neutrophils # Man Lymphocytes # (Manual) Monocytes # (Manual) Eosinophils # (Manual) Basophils # (Manual) PT INR Fibrinogen dRVVT Confirm Interp Factor V Activity 182 H POC ABG pH POC ABG pCO2 POC ABG pO2 ABG pO2 ABG HCO3 ABG Base Excess ABG Hemoglobin Oxyhemoglobin Sodium Potassium Chloride Carbon Dioxide BUN Creatinine Glucose POC Glucose 184 H 216 H Lactic Acid Calcium Ionized Calcium Phosphorus Magnesium Direct Bilirubin AST ALT Alkaline Phosphatase Lactate Dehydrogenase Troponin T C-Reactive Protein Total Protein Albumin Prealbumin Triglycerides Cholesterol LDL Cholesterol Direct HDL Cholesterol 25-OH Vitamin D Total PTH Intact Urine pH Urine WBC (Auto) Urine Creatinine Urine Total Protein Fluid Total Protein Vancomycin Trough Rheumatoid Factor Complement C4 Miscellaneous Test Crossmatch 09/09/16 09/09/16 09/09/16 03:00 03:00 04:04 WBC 27.9 H RBC Hgb 8.7 L Hct 28.1 L MCV 72 L MCH 22 L MCHC RDW 18.4 H Plt Count 485 H Lymph % (Auto) [place] % (Auto) Lymph # [place] # Baso # Seg Neutrophils % Seg Neuts % (Manual) 77.0 H Lymphocytes % (Manual) 9.0 L Monocytes % (Manual) Eosinophils % (Manual) Basophils % (Manual) Nucleated RBC % Seg Neutrophils # Seg Neutrophils # Man 21.5 H Lymphocytes # (Manual) Monocytes # (Manual) 2.0 H Eosinophils # (Manual) Basophils # (Manual) PT INR Fibrinogen dRVVT Confirm Interp Factor V Activity POC ABG pH POC ABG pCO2 POC ABG pO2 121 H ABG pO2 ABG HCO3 ABG Base Excess ABG Hemoglobin Oxyhemoglobin Sodium 135 L Potassium Chloride 96.3 L Carbon Dioxide 21 L BUN 83 H Creatinine 3.0 H Glucose 135 H POC Glucose Lactic Acid Calcium Ionized Calcium Phosphorus Magnesium Direct Bilirubin AST ALT Alkaline Phosphatase Lactate Dehydrogenase Troponin T C-Reactive Protein Total Protein Albumin Prealbumin Triglycerides Cholesterol LDL Cholesterol Direct HDL Cholesterol 25-OH Vitamin D Total PTH Intact Urine pH Urine WBC (Auto) Urine Creatinine Urine Total Protein Fluid Total Protein Vancomycin Trough Rheumatoid Factor Complement C4 Miscellaneous Test Crossmatch 09/09/16 09/09/16 09/09/16 05:41 11:55 14:13 WBC RBC Hgb Hct MCV MCH MCHC RDW Plt Count Lymph % (Auto) [place] % (Auto) Lymph # [place] # Baso # Seg Neutrophils % Seg Neuts % (Manual) Lymphocytes % (Manual) Monocytes % (Manual) Eosinophils % (Manual) Basophils % (Manual) Nucleated RBC % Seg Neutrophils # Seg Neutrophils # Man Lymphocytes # (Manual) Monocytes # (Manual) Eosinophils # (Manual) Basophils # (Manual) PT INR Fibrinogen dRVVT Confirm Interp Factor V Activity POC ABG pH POC ABG pCO2 POC ABG pO2 ABG pO2 ABG HCO3 ABG Base Excess ABG Hemoglobin Oxyhemoglobin Sodium Potassium Chloride Carbon Dioxide BUN Creatinine Glucose POC Glucose 155 H 186 H Lactic Acid Calcium Ionized Calcium Phosphorus Magnesium Direct Bilirubin AST ALT Alkaline Phosphatase Lactate Dehydrogenase Troponin T C-Reactive Protein Total Protein Albumin Prealbumin Triglycerides Cholesterol LDL Cholesterol Direct HDL Cholesterol 25-OH Vitamin D Total PTH Intact Urine pH Urine WBC (Auto) 25.0 H Urine Creatinine Urine Total Protein Fluid Total Protein Vancomycin Trough Rheumatoid Factor Complement C4 Miscellaneous Test Crossmatch 09/09/16 09/09/16 09/10/16 17:33 23:13 05:09 WBC RBC Hgb Hct MCV MCH MCHC RDW Plt Count Lymph % (Auto) [place] % (Auto) Lymph # [place] # Baso # Seg Neutrophils % Seg Neuts % (Manual) Lymphocytes % (Manual) Monocytes % (Manual) Eosinophils % (Manual) Basophils % (Manual) Nucleated RBC % Seg Neutrophils # Seg Neutrophils # Man Lymphocytes # (Manual) Monocytes # (Manual) Eosinophils # (Manual) Basophils # (Manual) PT INR Fibrinogen dRVVT Confirm Interp Factor V Activity POC ABG pH POC ABG pCO2 POC ABG pO2 74 L ABG pO2 ABG HCO3 ABG Base Excess ABG Hemoglobin Oxyhemoglobin Sodium Potassium Chloride Carbon Dioxide BUN Creatinine Glucose POC Glucose 211 H 215 H Lactic Acid Calcium Ionized Calcium Phosphorus Magnesium Direct Bilirubin AST ALT Alkaline Phosphatase Lactate Dehydrogenase Troponin T C-Reactive Protein Total Protein Albumin Prealbumin Triglycerides Cholesterol LDL Cholesterol Direct HDL Cholesterol 25-OH Vitamin D Total PTH Intact Urine pH Urine WBC (Auto) Urine Creatinine Urine Total Protein Fluid Total Protein Vancomycin Trough Rheumatoid Factor Complement C4 Miscellaneous Test Crossmatch 09/10/16 09/10/16 09/10/16 05:17 05:17 11:31 WBC 15.8 H RBC 3.25 L Hgb 7.3 L Hct 22.9 L MCV 71 L MCH 23 L MCHC RDW 18.4 H Plt Count Lymph % (Auto) [place] % (Auto) Lymph # [place] # Baso # Seg Neutrophils % Seg Neuts % (Manual) 91.0 H Lymphocytes % (Manual) 4.0 L Monocytes % (Manual) Eosinophils % (Manual) Basophils % (Manual) Nucleated RBC % Seg Neutrophils # Seg Neutrophils # Man 14.4 H Lymphocytes # (Manual) 0.6 L Monocytes # (Manual) Eosinophils # (Manual) Basophils # (Manual) PT INR Fibrinogen dRVVT Confirm Interp Factor V Activity POC ABG pH POC ABG pCO2 POC ABG pO2 ABG pO2 ABG HCO3 ABG Base Excess ABG Hemoglobin Oxyhemoglobin Sodium Potassium Chloride Carbon Dioxide 21 L BUN 93 H Creatinine 2.9 H Glucose 146 H POC Glucose 188 H Lactic Acid Calcium 8.1 L Ionized Calcium Phosphorus Magnesium Direct Bilirubin AST ALT Alkaline Phosphatase Lactate Dehydrogenase Troponin T C-Reactive Protein Total Protein Albumin Prealbumin Triglycerides Cholesterol LDL Cholesterol Direct HDL Cholesterol 25-OH Vitamin D Total PTH Intact Urine pH Urine WBC (Auto) Urine Creatinine Urine Total Protein Fluid Total Protein Vancomycin Trough Rheumatoid Factor Complement C4 Miscellaneous Test Crossmatch 09/10/16 09/10/16 09/10/16 13:17 17:20 23:32 WBC RBC Hgb Hct MCV MCH MCHC RDW Plt Count Lymph % (Auto) [place] % (Auto) Lymph # [place] # Baso # Seg Neutrophils % Seg Neuts % (Manual) Lymphocytes % (Manual) Monocytes % (Manual) Eosinophils % (Manual) Basophils % (Manual) Nucleated RBC % Seg Neutrophils # Seg Neutrophils # Man Lymphocytes # (Manual) Monocytes # (Manual) Eosinophils # (Manual) Basophils # (Manual) PT INR Fibrinogen dRVVT Confirm Interp Factor V Activity POC ABG pH POC ABG pCO2 POC ABG pO2 ABG pO2 ABG HCO3 ABG Base Excess ABG Hemoglobin Oxyhemoglobin Sodium Potassium Chloride Carbon Dioxide BUN Creatinine Glucose POC Glucose 199 H 186 H Lactic Acid Calcium Ionized Calcium Phosphorus Magnesium Direct Bilirubin AST ALT Alkaline Phosphatase Lactate Dehydrogenase Troponin T C-Reactive Protein Total Protein Albumin Prealbumin Triglycerides Cholesterol LDL Cholesterol Direct HDL Cholesterol 25-OH Vitamin D Total PTH Intact Urine pH Urine WBC (Auto) Urine Creatinine Urine Total Protein Fluid Total Protein Vancomycin Trough Rheumatoid Factor Complement C4 Miscellaneous Test Crossmatch See Detail 09/11/16 09/11/16 09/11/16 05:10 05:10 05:17 WBC 28.4 H RBC Hgb 9.2 L Hct 29.3 L D MCV 73 L MCH 23 L MCHC RDW 18.9 H Plt Count 452 H Lymph % (Auto) [place] % (Auto) Lymph # [place] # Baso # Seg Neutrophils % Seg Neuts % (Manual) 89.5 H Lymphocytes % (Manual) 2.0 L Monocytes % (Manual) Eosinophils % (Manual) Basophils % (Manual) Nucleated RBC % Seg Neutrophils # Seg Neutrophils # Man 25.4 H Lymphocytes # (Manual) 0.6 L Monocytes # (Manual) 1.3 H Eosinophils # (Manual) Basophils # (Manual) PT INR Fibrinogen dRVVT Confirm Interp Factor V Activity POC ABG pH POC ABG pCO2 POC ABG pO2 ABG pO2 ABG HCO3 ABG Base Excess ABG Hemoglobin Oxyhemoglobin Sodium 136 L Potassium Chloride Carbon Dioxide 18 L BUN 107 H Creatinine 2.6 H Glucose 187 H POC Glucose 230 H Lactic Acid Calcium 8.3 L Ionized Calcium Phosphorus Magnesium Direct Bilirubin AST ALT Alkaline Phosphatase Lactate Dehydrogenase Troponin T C-Reactive Protein Total Protein Albumin Prealbumin Triglycerides Cholesterol LDL Cholesterol Direct HDL Cholesterol 25-OH Vitamin D Total PTH Intact Urine pH Urine WBC (Auto) Urine Creatinine Urine Total Protein Fluid Total Protein Vancomycin Trough Rheumatoid Factor Complement C4 Miscellaneous Test Crossmatch 09/11/16 09/11/16 09/11/16 05:55 12:02 17:32 WBC RBC Hgb Hct MCV MCH MCHC RDW Plt Count Lymph % (Auto) [place] % (Auto) Lymph # [place] # Baso # Seg Neutrophils % Seg Neuts % (Manual) Lymphocytes % (Manual) Monocytes % (Manual) Eosinophils % (Manual) Basophils % (Manual) Nucleated RBC % Seg Neutrophils # Seg Neutrophils # Man Lymphocytes # (Manual) Monocytes # (Manual) Eosinophils # (Manual) Basophils # (Manual) PT INR Fibrinogen dRVVT Confirm Interp Factor V Activity POC ABG pH POC ABG pCO2 33.8 L POC ABG pO2 ABG pO2 ABG HCO3 ABG Base Excess ABG Hemoglobin Oxyhemoglobin Sodium Potassium Chloride Carbon Dioxide BUN Creatinine Glucose POC Glucose 191 H 239 H Lactic Acid Calcium Ionized Calcium Phosphorus Magnesium Direct Bilirubin AST ALT Alkaline Phosphatase Lactate Dehydrogenase Troponin T C-Reactive Protein Total Protein Albumin Prealbumin Triglycerides Cholesterol LDL Cholesterol Direct HDL Cholesterol 25-OH Vitamin D Total PTH Intact Urine pH Urine WBC (Auto) Urine Creatinine Urine Total Protein Fluid Total Protein Vancomycin Trough Rheumatoid Factor Complement C4 Miscellaneous Test Crossmatch 09/11/16 09/12/16 09/12/16 23:52 05:09 05:32 WBC RBC Hgb Hct MCV MCH MCHC RDW Plt Count Lymph % (Auto) [place] % (Auto) Lymph # [place] # Baso # Seg Neutrophils % Seg Neuts % (Manual) Lymphocytes % (Manual) Monocytes % (Manual) Eosinophils % (Manual) Basophils % (Manual) Nucleated RBC % Seg Neutrophils # Seg Neutrophils # Man Lymphocytes # (Manual) Monocytes # (Manual) Eosinophils # (Manual) Basophils # (Manual) PT INR Fibrinogen dRVVT Confirm Interp Factor V Activity POC ABG pH POC ABG pCO2 34.6 L POC ABG pO2 ABG pO2 ABG HCO3 ABG Base Excess ABG Hemoglobin Oxyhemoglobin Sodium Potassium Chloride Carbon Dioxide BUN Creatinine Glucose POC Glucose 265 H 184 H Lactic Acid Calcium Ionized Calcium Phosphorus Magnesium Direct Bilirubin AST ALT Alkaline Phosphatase Lactate Dehydrogenase Troponin T C-Reactive Protein Total Protein Albumin Prealbumin Triglycerides Cholesterol LDL Cholesterol Direct HDL Cholesterol 25-OH Vitamin D Total PTH Intact Urine pH Urine WBC (Auto) Urine Creatinine Urine Total Protein Fluid Total Protein Vancomycin Trough Rheumatoid Factor Complement C4 Miscellaneous Test Crossmatch 09/12/16 09/12/16 09/12/16 06:45 06:45 07:22 WBC 31.7 H RBC 3.54 L Hgb 8.3 L Hct 25.9 L MCV 73 L MCH 23 L MCHC RDW 18.9 H Plt Count Lymph % (Auto) [place] % (Auto) Lymph # [place] # Baso # Seg Neutrophils % Seg Neuts % (Manual) 88.5 H Lymphocytes % (Manual) 4.5 L Monocytes % (Manual) Eosinophils % (Manual) Basophils % (Manual) Nucleated RBC % Seg Neutrophils # Seg Neutrophils # Man 28.1 H Lymphocytes # (Manual) Monocytes # (Manual) 1.0 H Eosinophils # (Manual) Basophils # (Manual) PT INR Fibrinogen dRVVT Confirm Interp Factor V Activity POC ABG pH POC ABG pCO2 POC ABG pO2 ABG pO2 ABG HCO3 ABG Base Excess ABG Hemoglobin Oxyhemoglobin Sodium Potassium Chloride Carbon Dioxide 20 L BUN 115 H Creatinine 2.7 H Glucose 165 H POC Glucose Lactic Acid Calcium 8.0 L Ionized Calcium Phosphorus Magnesium Direct Bilirubin AST ALT Alkaline Phosphatase Lactate Dehydrogenase Troponin T C-Reactive Protein Total Protein Albumin Prealbumin Triglycerides 217 H Cholesterol LDL Cholesterol Direct HDL Cholesterol 25-OH Vitamin D Total PTH Intact Urine pH Urine WBC (Auto) Urine Creatinine Urine Total Protein Fluid Total Protein Vancomycin Trough Rheumatoid Factor Complement C4 Miscellaneous Test Crossmatch 09/12/16 09/12/16 09/12/16 07:22 09:59 12:21 WBC RBC Hgb Hct MCV MCH MCHC RDW Plt Count Lymph % (Auto) [place] % (Auto) Lymph # [place] # Baso # Seg Neutrophils % Seg Neuts % (Manual) Lymphocytes % (Manual) Monocytes % (Manual) Eosinophils % (Manual) Basophils % (Manual) Nucleated RBC % Seg Neutrophils # Seg Neutrophils # Man Lymphocytes # (Manual) Monocytes # (Manual) Eosinophils # (Manual) Basophils # (Manual) PT INR Fibrinogen dRVVT Confirm Interp Positive H Factor V Activity POC ABG pH POC ABG pCO2 POC ABG pO2 ABG pO2 ABG HCO3 ABG Base Excess ABG Hemoglobin Oxyhemoglobin Sodium Potassium Chloride Carbon Dioxide BUN Creatinine Glucose POC Glucose 224 H Lactic Acid Calcium Ionized Calcium Phosphorus Magnesium Direct Bilirubin AST ALT Alkaline Phosphatase Lactate Dehydrogenase Troponin T C-Reactive Protein 1.70 H Total Protein Albumin Prealbumin Triglycerides Cholesterol LDL Cholesterol Direct HDL Cholesterol 25-OH Vitamin D Total PTH Intact Urine pH Urine WBC (Auto) Urine Creatinine Urine Total Protein Fluid Total Protein Vancomycin Trough Rheumatoid Factor Complement C4 Miscellaneous Test Crossmatch 09/12/16 09/12/16 09/13/16 16:51 23:28 04:00 WBC 45.0 H* RBC Hgb 9.4 L Hct MCV 75 L MCH 23 L MCHC RDW 19.0 H Plt Count 470 H Lymph % (Auto) [place] % (Auto) Lymph # [place] # Baso # Seg Neutrophils % Seg Neuts % (Manual) 89.0 H Lymphocytes % (Manual) 5.0 L Monocytes % (Manual) Eosinophils % (Manual) Basophils % (Manual) Nucleated RBC % Seg Neutrophils # Seg Neutrophils # Man 40.1 H Lymphocytes # (Manual) Monocytes # (Manual) Eosinophils # (Manual) Basophils # (Manual) PT INR Fibrinogen dRVVT Confirm Interp Factor V Activity POC ABG pH POC ABG pCO2 POC ABG pO2 ABG pO2 ABG HCO3 ABG Base Excess ABG Hemoglobin Oxyhemoglobin Sodium Potassium Chloride Carbon Dioxide BUN Creatinine Glucose POC Glucose 169 H 150 H Lactic Acid Calcium Ionized Calcium Phosphorus Magnesium Direct Bilirubin AST ALT Alkaline Phosphatase Lactate Dehydrogenase Troponin T C-Reactive Protein Total Protein Albumin Prealbumin Triglycerides Cholesterol LDL Cholesterol Direct HDL Cholesterol 25-OH Vitamin D Total PTH Intact Urine pH Urine WBC (Auto) Urine Creatinine Urine Total Protein Fluid Total Protein Vancomycin Trough Rheumatoid Factor Complement C4 Miscellaneous Test Crossmatch 09/13/16 09/13/16 09/13/16 04:00 11:26 17:31 WBC RBC Hgb Hct MCV MCH MCHC RDW Plt Count Lymph % (Auto) [place] % (Auto) Lymph # [place] # Baso # Seg Neutrophils % Seg Neuts % (Manual) Lymphocytes % (Manual) Monocytes % (Manual) Eosinophils % (Manual) Basophils % (Manual) Nucleated RBC % Seg Neutrophils # Seg Neutrophils # Man Lymphocytes # (Manual) Monocytes # (Manual) Eosinophils # (Manual) Basophils # (Manual) PT INR Fibrinogen dRVVT Confirm Interp Factor V Activity POC ABG pH POC ABG pCO2 POC ABG pO2 ABG pO2 ABG HCO3 ABG Base Excess ABG Hemoglobin Oxyhemoglobin Sodium Potassium Chloride Carbon Dioxide 20 L BUN 116 H Creatinine 3.0 H Glucose 172 H POC Glucose 140 H 183 H Lactic Acid Calcium Ionized Calcium Phosphorus Magnesium Direct Bilirubin AST ALT Alkaline Phosphatase Lactate Dehydrogenase Troponin T C-Reactive Protein Total Protein 6.2 L Albumin 2.9 L Prealbumin Triglycerides Cholesterol LDL Cholesterol Direct HDL Cholesterol 25-OH Vitamin D Total PTH Intact Urine pH Urine WBC (Auto) Urine Creatinine Urine Total Protein Fluid Total Protein Vancomycin Trough Rheumatoid Factor Complement C4 Miscellaneous Test Crossmatch 09/13/16 09/14/16 09/14/16 23:23 04:06 04:07 WBC 29.4 H RBC Hgb 8.9 L Hct 27.3 L MCV 75 L MCH 24 L MCHC RDW 19.1 H Plt Count Lymph % (Auto) [place] % (Auto) Lymph # [place] # Baso # Seg Neutrophils % Seg Neuts % (Manual) 84.0 H Lymphocytes % (Manual) 6.0 L Monocytes % (Manual) 9.0 H Eosinophils % (Manual) Basophils % (Manual) Nucleated RBC % Seg Neutrophils # Seg Neutrophils # Man 24.7 H Lymphocytes # (Manual) Monocytes # (Manual) 2.6 H Eosinophils # (Manual) Basophils # (Manual) PT INR Fibrinogen dRVVT Confirm Interp Factor V Activity POC ABG pH 7.342 L POC ABG pCO2 POC ABG pO2 116 H ABG pO2 ABG HCO3 ABG Base Excess ABG Hemoglobin Oxyhemoglobin Sodium Potassium Chloride Carbon Dioxide BUN Creatinine Glucose POC Glucose 154 H Lactic Acid Calcium Ionized Calcium Phosphorus Magnesium Direct Bilirubin AST ALT Alkaline Phosphatase Lactate Dehydrogenase Troponin T C-Reactive Protein Total Protein Albumin Prealbumin Triglycerides Cholesterol LDL Cholesterol Direct HDL Cholesterol 25-OH Vitamin D Total PTH Intact Urine pH Urine WBC (Auto) Urine Creatinine Urine Total Protein Fluid Total Protein Vancomycin Trough Rheumatoid Factor Complement C4 Miscellaneous Test Crossmatch 09/14/16 09/14/16 09/14/16 04:07 05:29 12:19 WBC RBC Hgb Hct MCV MCH MCHC RDW Plt Count Lymph % (Auto) [place] % (Auto) Lymph # [place] # Baso # Seg Neutrophils % Seg Neuts % (Manual) Lymphocytes % (Manual) Monocytes % (Manual) Eosinophils % (Manual) Basophils % (Manual) Nucleated RBC % Seg Neutrophils # Seg Neutrophils # Man Lymphocytes # (Manual) Monocytes # (Manual) Eosinophils # (Manual) Basophils # (Manual) PT INR Fibrinogen dRVVT Confirm Interp Factor V Activity POC ABG pH POC ABG pCO2 POC ABG pO2 ABG pO2 ABG HCO3 ABG Base Excess ABG Hemoglobin Oxyhemoglobin Sodium 136 L Potassium Chloride Carbon Dioxide 18 L BUN 121 H Creatinine 2.8 H Glucose 214 H POC Glucose 239 H 181 H Lactic Acid Calcium Ionized Calcium Phosphorus Magnesium Direct Bilirubin AST ALT Alkaline Phosphatase Lactate Dehydrogenase Troponin T C-Reactive Protein Total Protein Albumin Prealbumin Triglycerides Cholesterol LDL Cholesterol Direct HDL Cholesterol 25-OH Vitamin D Total PTH Intact Urine pH Urine WBC (Auto) Urine Creatinine Urine Total Protein Fluid Total Protein Vancomycin Trough Rheumatoid Factor Complement C4 Miscellaneous Test Crossmatch 09/14/16 09/14/16 09/15/16 18:12 23:37 05:00 WBC 26.1 H RBC 3.05 L Hgb 7.2 L Hct 22.9 L MCV 75 L MCH 24 L MCHC RDW 19.0 H Plt Count Lymph % (Auto) [place] % (Auto) Lymph # [place] # Baso # Seg Neutrophils % Seg Neuts % (Manual) Lymphocytes % (Manual) Monocytes % (Manual) Eosinophils % (Manual) Basophils % (Manual) Nucleated RBC % Seg Neutrophils # Seg Neutrophils # Man Lymphocytes # (Manual) Monocytes # (Manual) Eosinophils # (Manual) Basophils # (Manual) PT INR Fibrinogen dRVVT Confirm Interp Factor V Activity POC ABG pH POC ABG pCO2 POC ABG pO2 ABG pO2 ABG HCO3 ABG Base Excess ABG Hemoglobin Oxyhemoglobin Sodium Potassium Chloride Carbon Dioxide BUN Creatinine Glucose POC Glucose 266 H 154 H Lactic Acid Calcium Ionized Calcium Phosphorus Magnesium Direct Bilirubin AST ALT Alkaline Phosphatase Lactate Dehydrogenase Troponin T C-Reactive Protein Total Protein Albumin Prealbumin Triglycerides Cholesterol LDL Cholesterol Direct HDL Cholesterol 25-OH Vitamin D Total PTH Intact Urine pH Urine WBC (Auto) Urine Creatinine Urine Total Protein Fluid Total Protein Vancomycin Trough Rheumatoid Factor Complement C4 Miscellaneous Test Crossmatch 09/15/16 09/15/16 09/15/16 05:00 05:17 12:45 WBC RBC Hgb Hct MCV MCH MCHC RDW Plt Count Lymph % (Auto) [place] % (Auto) Lymph # [place] # Baso # Seg Neutrophils % Seg Neuts % (Manual) Lymphocytes % (Manual) Monocytes % (Manual) Eosinophils % (Manual) Basophils % (Manual) Nucleated RBC % Seg Neutrophils # Seg Neutrophils # Man Lymphocytes # (Manual) Monocytes # (Manual) Eosinophils # (Manual) Basophils # (Manual) PT INR Fibrinogen dRVVT Confirm Interp Factor V Activity POC ABG pH POC ABG pCO2 POC ABG pO2 ABG pO2 ABG HCO3 ABG Base Excess ABG Hemoglobin Oxyhemoglobin Sodium Potassium 5.2 H Chloride Carbon Dioxide 18 L BUN 139 H Creatinine 3.7 H Glucose 227 H POC Glucose 226 H 244 H Lactic Acid Calcium 8.3 L Ionized Calcium Phosphorus Magnesium Direct Bilirubin AST ALT Alkaline Phosphatase Lactate Dehydrogenase Troponin T C-Reactive Protein Total Protein Albumin Prealbumin Triglycerides Cholesterol LDL Cholesterol Direct HDL Cholesterol 25-OH Vitamin D Total PTH Intact Urine pH Urine WBC (Auto) Urine Creatinine Urine Total Protein Fluid Total Protein Vancomycin Trough Rheumatoid Factor Complement C4 Miscellaneous Test Crossmatch 09/15/16 09/15/16 09/15/16 14:32 17:33 23:35 WBC RBC Hgb Hct MCV MCH MCHC RDW Plt Count Lymph % (Auto) [place] % (Auto) Lymph # [place] # Baso # Seg Neutrophils % Seg Neuts % (Manual) Lymphocytes % (Manual) Monocytes % (Manual) Eosinophils % (Manual) Basophils % (Manual) Nucleated RBC % Seg Neutrophils # Seg Neutrophils # Man Lymphocytes # (Manual) Monocytes # (Manual) Eosinophils # (Manual) Basophils # (Manual) PT INR Fibrinogen dRVVT Confirm Interp Factor V Activity POC ABG pH POC ABG pCO2 27.7 L POC ABG pO2 120 H ABG pO2 ABG HCO3 ABG Base Excess ABG Hemoglobin Oxyhemoglobin Sodium Potassium Chloride Carbon Dioxide BUN Creatinine Glucose POC Glucose 232 H 167 H Lactic Acid Calcium Ionized Calcium Phosphorus Magnesium Direct Bilirubin AST ALT Alkaline Phosphatase Lactate Dehydrogenase Troponin T C-Reactive Protein Total Protein Albumin Prealbumin Triglycerides Cholesterol LDL Cholesterol Direct HDL Cholesterol 25-OH Vitamin D Total PTH Intact Urine pH Urine WBC (Auto) Urine Creatinine Urine Total Protein Fluid Total Protein Vancomycin Trough Rheumatoid Factor Complement C4 Miscellaneous Test Crossmatch 09/16/16 09/16/16 09/16/16 03:58 10:27 10:27 WBC 19.0 H RBC 2.77 L Hgb 6.5 L Hct 20.9 L MCV 76 L MCH 23 L MCHC RDW 19.3 H Plt Count Lymph % (Auto) 11.0 L [place] % (Auto) Lymph # [place] # 1.1 H Baso # Seg Neutrophils % 82.5 H Seg Neuts % (Manual) Lymphocytes % (Manual) Monocytes % (Manual) Eosinophils % (Manual) Basophils % (Manual) Nucleated RBC % Seg Neutrophils # 15.7 H Seg Neutrophils # Man Lymphocytes # (Manual) Monocytes # (Manual) Eosinophils # (Manual) Basophils # (Manual) PT INR Fibrinogen dRVVT Confirm Interp Factor V Activity POC ABG pH POC ABG pCO2 POC ABG pO2 ABG pO2 ABG HCO3 ABG Base Excess ABG Hemoglobin Oxyhemoglobin Sodium Potassium Chloride 109.3 H Carbon Dioxide 18 L BUN 139 H Creatinine 4.1 H Glucose 144 H POC Glucose 146 H Lactic Acid Calcium 8.1 L Ionized Calcium Phosphorus Magnesium Direct Bilirubin AST ALT Alkaline Phosphatase Lactate Dehydrogenase Troponin T C-Reactive Protein Total Protein Albumin Prealbumin Triglycerides Cholesterol LDL Cholesterol Direct HDL Cholesterol 25-OH Vitamin D Total PTH Intact Urine pH Urine WBC (Auto) Urine Creatinine Urine Total Protein Fluid Total Protein Vancomycin Trough Rheumatoid Factor Complement C4 Miscellaneous Test Crossmatch 09/16/16 09/16/16 09/16/16 12:04 12:10 13:55 WBC RBC Hgb Hct MCV MCH MCHC RDW Plt Count Lymph % (Auto) [place] % (Auto) Lymph # [place] # Baso # Seg Neutrophils % Seg Neuts % (Manual) Lymphocytes % (Manual) Monocytes % (Manual) Eosinophils % (Manual) Basophils % (Manual) Nucleated RBC % Seg Neutrophils # Seg Neutrophils # Man Lymphocytes # (Manual) Monocytes # (Manual) Eosinophils # (Manual) Basophils # (Manual) PT INR Fibrinogen dRVVT Confirm Interp Factor V Activity POC ABG pH POC ABG pCO2 32.9 L POC ABG pO2 ABG pO2 ABG HCO3 ABG Base Excess ABG Hemoglobin Oxyhemoglobin Sodium Potassium Chloride Carbon Dioxide BUN Creatinine Glucose POC Glucose 185 H Lactic Acid Calcium Ionized Calcium Phosphorus Magnesium Direct Bilirubin AST ALT Alkaline Phosphatase Lactate Dehydrogenase Troponin T C-Reactive Protein Total Protein Albumin Prealbumin Triglycerides Cholesterol LDL Cholesterol Direct HDL Cholesterol 25-OH Vitamin D Total PTH Intact Urine pH Urine WBC (Auto) Urine Creatinine Urine Total Protein Fluid Total Protein Vancomycin Trough Rheumatoid Factor Complement C4 Miscellaneous Test Crossmatch See Detail 09/16/16 09/16/16 09/16/16 17:55 19:19 23:48 WBC RBC Hgb Hct MCV MCH MCHC RDW Plt Count Lymph % (Auto) [place] % (Auto) Lymph # [place] # Baso # Seg Neutrophils % Seg Neuts % (Manual) Lymphocytes % (Manual) Monocytes % (Manual) Eosinophils % (Manual) Basophils % (Manual) Nucleated RBC % Seg Neutrophils # Seg Neutrophils # Man Lymphocytes # (Manual) Monocytes # (Manual) Eosinophils # (Manual) Basophils # (Manual) PT INR Fibrinogen dRVVT Confirm Interp Factor V Activity POC ABG pH POC ABG pCO2 POC ABG pO2 ABG pO2 ABG HCO3 ABG Base Excess ABG Hemoglobin Oxyhemoglobin Sodium Potassium Chloride Carbon Dioxide BUN Creatinine Glucose POC Glucose 222 H 107 H Lactic Acid Calcium Ionized Calcium Phosphorus Magnesium Direct Bilirubin AST ALT Alkaline Phosphatase Lactate Dehydrogenase Troponin T C-Reactive Protein Total Protein Albumin Prealbumin Triglycerides Cholesterol LDL Cholesterol Direct HDL Cholesterol 25-OH Vitamin D Total PTH Intact Urine pH Urine WBC (Auto) Urine Creatinine 47.4 H Urine Total Protein 16 H Fluid Total Protein Vancomycin Trough Rheumatoid Factor Complement C4 Miscellaneous Test Crossmatch 09/17/16 09/17/16 09/17/16 03:45 03:45 04:55 WBC 19.6 H RBC 3.41 L Hgb 8.5 L Hct 26.7 L MCV 78 L MCH 25 L MCHC RDW 19.9 H Plt Count Lymph % (Auto) 9.3 L [place] % (Auto) Lymph # [place] # 1.2 H Baso # Seg Neutrophils % 83.9 H Seg Neuts % (Manual) Lymphocytes % (Manual) Monocytes % (Manual) Eosinophils % (Manual) Basophils % (Manual) Nucleated RBC % Seg Neutrophils # 16.4 H Seg Neutrophils # Man Lymphocytes # (Manual) Monocytes # (Manual) Eosinophils # (Manual) Basophils # (Manual) PT INR Fibrinogen dRVVT Confirm Interp Factor V Activity POC ABG pH POC ABG pCO2 POC ABG pO2 ABG pO2 ABG HCO3 ABG Base Excess ABG Hemoglobin Oxyhemoglobin Sodium 146 H Potassium 5.1 H Chloride 110.9 H Carbon Dioxide 16 L BUN 146 H Creatinine 4.0 H Glucose 108 H POC Glucose 133 H Lactic Acid Calcium Ionized Calcium Phosphorus Magnesium 3.00 H Direct Bilirubin AST ALT Alkaline Phosphatase Lactate Dehydrogenase Troponin T C-Reactive Protein Total Protein Albumin Prealbumin Triglycerides Cholesterol LDL Cholesterol Direct HDL Cholesterol 25-OH Vitamin D Total PTH Intact Urine pH Urine WBC (Auto) Urine Creatinine Urine Total Protein Fluid Total Protein Vancomycin Trough Rheumatoid Factor Complement C4 Miscellaneous Test Crossmatch 09/17/16 09/17/16 09/17/16 11:15 17:33 23:47 WBC RBC Hgb Hct MCV MCH MCHC RDW Plt Count Lymph % (Auto) [place] % (Auto) Lymph # [place] # Baso # Seg Neutrophils % Seg Neuts % (Manual) Lymphocytes % (Manual) Monocytes % (Manual) Eosinophils % (Manual) Basophils % (Manual) Nucleated RBC % Seg Neutrophils # Seg Neutrophils # Man Lymphocytes # (Manual) Monocytes # (Manual) Eosinophils # (Manual) Basophils # (Manual) PT INR Fibrinogen dRVVT Confirm Interp Factor V Activity POC ABG pH POC ABG pCO2 POC ABG pO2 ABG pO2 ABG HCO3 ABG Base Excess ABG Hemoglobin Oxyhemoglobin Sodium Potassium Chloride Carbon Dioxide BUN Creatinine Glucose POC Glucose 176 H 246 H 148 H Lactic Acid Calcium Ionized Calcium Phosphorus Magnesium Direct Bilirubin AST ALT Alkaline Phosphatase Lactate Dehydrogenase Troponin T C-Reactive Protein Total Protein Albumin Prealbumin Triglycerides Cholesterol LDL Cholesterol Direct HDL Cholesterol 25-OH Vitamin D Total PTH Intact Urine pH Urine WBC (Auto) Urine Creatinine Urine Total Protein Fluid Total Protein Vancomycin Trough Rheumatoid Factor Complement C4 Miscellaneous Test Crossmatch 09/18/16 09/18/16 09/18/16 05:33 08:31 08:31 WBC 18.0 H RBC 3.17 L Hgb 9.0 L Hct 25.7 L MCV MCH MCHC 35 H RDW 20.4 H Plt Count Lymph % (Auto) [place] % (Auto) Lymph # [place] # Baso # Seg Neutrophils % Seg Neuts % (Manual) Lymphocytes % (Manual) Monocytes % (Manual) Eosinophils % (Manual) Basophils % (Manual) Nucleated RBC % Seg Neutrophils # Seg Neutrophils # Man Lymphocytes # (Manual) Monocytes # (Manual) Eosinophils # (Manual) Basophils # (Manual) PT INR Fibrinogen dRVVT Confirm Interp Factor V Activity POC ABG pH POC ABG pCO2 POC ABG pO2 ABG pO2 ABG HCO3 ABG Base Excess ABG Hemoglobin Oxyhemoglobin Sodium Potassium Chloride Carbon Dioxide 15 L BUN 124 H Creatinine 3.8 H Glucose POC Glucose 120 H Lactic Acid Calcium 8.1 L Ionized Calcium Phosphorus Magnesium Direct Bilirubin AST ALT Alkaline Phosphatase Lactate Dehydrogenase Troponin T C-Reactive Protein Total Protein Albumin Prealbumin Triglycerides Cholesterol LDL Cholesterol Direct HDL Cholesterol 25-OH Vitamin D Total PTH Intact Urine pH Urine WBC (Auto) Urine Creatinine Urine Total Protein Fluid Total Protein Vancomycin Trough Rheumatoid Factor Complement C4 Miscellaneous Test Crossmatch 09/18/16 09/18/16 09/18/16 12:03 15:34 17:50 WBC RBC Hgb Hct MCV MCH MCHC RDW Plt Count Lymph % (Auto) [place] % (Auto) Lymph # [place] # Baso # Seg Neutrophils % Seg Neuts % (Manual) Lymphocytes % (Manual) Monocytes % (Manual) Eosinophils % (Manual) Basophils % (Manual) Nucleated RBC % Seg Neutrophils # Seg Neutrophils # Man Lymphocytes # (Manual) Monocytes # (Manual) Eosinophils # (Manual) Basophils # (Manual) PT INR Fibrinogen dRVVT Confirm Interp Factor V Activity POC ABG pH POC ABG pCO2 25.7 L POC ABG pO2 66 L ABG pO2 ABG HCO3 ABG Base Excess ABG Hemoglobin Oxyhemoglobin Sodium Potassium Chloride Carbon Dioxide BUN Creatinine Glucose POC Glucose 156 H 220 H Lactic Acid Calcium Ionized Calcium Phosphorus Magnesium Direct Bilirubin AST ALT Alkaline Phosphatase Lactate Dehydrogenase Troponin T C-Reactive Protein Total Protein Albumin Prealbumin Triglycerides Cholesterol LDL Cholesterol Direct HDL Cholesterol 25-OH Vitamin D Total PTH Intact Urine pH Urine WBC (Auto) Urine Creatinine Urine Total Protein Fluid Total Protein Vancomycin Trough Rheumatoid Factor Complement C4 Miscellaneous Test Crossmatch 09/19/16 09/19/16 09/19/16 06:21 09:50 09:50 WBC 17.1 H RBC 3.49 L Hgb 9.0 L Hct 28.1 L MCV MCH 26 L MCHC RDW 20.8 H Plt Count Lymph % (Auto) 11.5 L [place] % (Auto) 7.5 H Lymph # [place] # 1.3 H Baso # Seg Neutrophils % 79.8 H Seg Neuts % (Manual) Lymphocytes % (Manual) Monocytes % (Manual) Eosinophils % (Manual) Basophils % (Manual) Nucleated RBC % Seg Neutrophils # 13.7 H Seg Neutrophils # Man Lymphocytes # (Manual) Monocytes # (Manual) Eosinophils # (Manual) Basophils # (Manual) PT INR Fibrinogen dRVVT Confirm Interp Factor V Activity POC ABG pH POC ABG pCO2 POC ABG pO2 ABG pO2 ABG HCO3 ABG Base Excess ABG Hemoglobin Oxyhemoglobin Sodium Potassium Chloride 108.6 H Carbon Dioxide 15 L BUN 125 H Creatinine 4.1 H Glucose 124 H POC Glucose 119 H Lactic Acid Calcium Ionized Calcium Phosphorus Magnesium Direct Bilirubin AST ALT Alkaline Phosphatase Lactate Dehydrogenase Troponin T C-Reactive Protein Total Protein Albumin Prealbumin Triglycerides Cholesterol LDL Cholesterol Direct HDL Cholesterol 25-OH Vitamin D Total PTH Intact Urine pH Urine WBC (Auto) Urine Creatinine Urine Total Protein Fluid Total Protein Vancomycin Trough Rheumatoid Factor Complement C4 Miscellaneous Test Crossmatch 09/19/16 09/19/1609/19/17 11:25 17:53 23:36 WBC RBC Hgb Hct MCV MCH MCHC RDW Plt Count Lymph % (Auto) [place] % (Auto) Lymph # [place] # Baso # Seg Neutrophils % Seg Neuts % (Manual) Lymphocytes % (Manual) Monocytes % (Manual) Eosinophils % (Manual) Basophils % (Manual) Nucleated RBC % Seg Neutrophils # Seg Neutrophils # Man Lymphocytes # (Manual) Monocytes # (Manual) Eosinophils # (Manual) Basophils # (Manual) PT INR Fibrinogen dRVVT Confirm Interp Factor V Activity POC ABG pH POC ABG pCO2 POC ABG pO2 ABG pO2 ABG HCO3 ABG Base Excess ABG Hemoglobin Oxyhemoglobin Sodium Potassium Chloride Carbon Dioxide BUN Creatinine Glucose POC Glucose 160 H 245 H 121 H Lactic Acid Calcium Ionized Calcium Phosphorus Magnesium Direct Bilirubin AST ALT Alkaline Phosphatase Lactate Dehydrogenase Troponin T C-Reactive Protein Total Protein Albumin Prealbumin Triglycerides Cholesterol LDL Cholesterol Direct HDL Cholesterol 25-OH Vitamin D Total PTH Intact Urine pH Urine WBC (Auto) Urine Creatinine Urine Total Protein Fluid Total Protein Vancomycin Trough Rheumatoid Factor Complement C4 Miscellaneous Test Crossmatch 09/20/16 09/20/16 09/20/16 04:10 04:10 04:10 WBC 17.0 H RBC 3.21 L Hgb 8.2 L Hct 25.5 L MCV MCH 26 L MCHC RDW 20.9 H Plt Count Lymph % (Auto) [place] % (Auto) Lymph # [place] # Baso # Seg Neutrophils % Seg Neuts % (Manual) Lymphocytes % (Manual) Monocytes % (Manual) Eosinophils % (Manual) Basophils % (Manual) Nucleated RBC % Seg Neutrophils # Seg Neutrophils # Man Lymphocytes # (Manual) Monocytes # (Manual) Eosinophils # (Manual) Basophils # (Manual) PT INR Fibrinogen dRVVT Confirm Interp Factor V Activity POC ABG pH POC ABG pCO2 POC ABG pO2 ABG pO2 ABG HCO3 ABG Base Excess ABG Hemoglobin Oxyhemoglobin Sodium Potassium Chloride 111.0 H Carbon Dioxide 16 L BUN 129 H Creatinine 3.7 H Glucose 115 H POC Glucose Lactic Acid Calcium 8.2 L Ionized Calcium Phosphorus Magnesium Direct Bilirubin AST ALT Alkaline Phosphatase Lactate Dehydrogenase Troponin T C-Reactive Protein Total Protein Albumin Prealbumin Triglycerides 243 H Cholesterol LDL Cholesterol Direct HDL Cholesterol 25-OH Vitamin D Total PTH Intact Urine pH Urine WBC (Auto) Urine Creatinine Urine Total Protein Fluid Total Protein Vancomycin Trough Rheumatoid Factor Complement C4 Miscellaneous Test Crossmatch 09/20/16 09/20/16 09/20/16 05:40 11:52 16:50 WBC RBC Hgb Hct MCV MCH MCHC RDW Plt Count Lymph % (Auto) [place] % (Auto) Lymph # [place] # Baso # Seg Neutrophils % Seg Neuts % (Manual) Lymphocytes % (Manual) Monocytes % (Manual) Eosinophils % (Manual) Basophils % (Manual) Nucleated RBC % Seg Neutrophils # Seg Neutrophils # Man Lymphocytes # (Manual) Monocytes # (Manual) Eosinophils # (Manual) Basophils # (Manual) PT INR Fibrinogen dRVVT Confirm Interp Factor V Activity POC ABG pH POC ABG pCO2 POC ABG pO2 ABG pO2 ABG HCO3 ABG Base Excess ABG Hemoglobin Oxyhemoglobin Sodium Potassium Chloride Carbon Dioxide BUN Creatinine Glucose POC Glucose 131 H 183 H 236 H Lactic Acid Calcium Ionized Calcium Phosphorus Magnesium Direct Bilirubin AST ALT Alkaline Phosphatase Lactate Dehydrogenase Troponin T C-Reactive Protein Total Protein Albumin Prealbumin Triglycerides Cholesterol LDL Cholesterol Direct HDL Cholesterol 25-OH Vitamin D Total PTH Intact Urine pH Urine WBC (Auto) Urine Creatinine Urine Total Protein Fluid Total Protein Vancomycin Trough Rheumatoid Factor Complement C4 Miscellaneous Test Crossmatch 09/20/16 09/21/16 09/21/16 23:51 03:30 04:44 WBC RBC Hgb Hct MCV MCH MCHC RDW Plt Count Lymph % (Auto) [place] % (Auto) Lymph # [place] # Baso # Seg Neutrophils % Seg Neuts % (Manual) Lymphocytes % (Manual) Monocytes % (Manual) Eosinophils % (Manual) Basophils % (Manual) Nucleated RBC % Seg Neutrophils # Seg Neutrophils # Man Lymphocytes # (Manual) Monocytes # (Manual) Eosinophils # (Manual) Basophils # (Manual) PT INR Fibrinogen dRVVT Confirm Interp Factor V Activity POC ABG pH POC ABG pCO2 POC ABG pO2 ABG pO2 ABG HCO3 ABG Base Excess ABG Hemoglobin Oxyhemoglobin Sodium Potassium Chloride Carbon Dioxide BUN Creatinine Glucose POC Glucose 114 H 141 H Lactic Acid Calcium Ionized Calcium Phosphorus Magnesium 2.70 H Direct Bilirubin AST ALT Alkaline Phosphatase Lactate Dehydrogenase Troponin T C-Reactive Protein Total Protein Albumin Prealbumin Triglycerides Cholesterol LDL Cholesterol Direct HDL Cholesterol 25-OH Vitamin D Total PTH Intact Urine pH Urine WBC (Auto) Urine Creatinine Urine Total Protein Fluid Total Protein Vancomycin Trough Rheumatoid Factor Complement C4 Miscellaneous Test Crossmatch 09/21/16 09/21/16 09/21/16 07:45 07:45 10:01 WBC 13.8 H RBC 2.94 L Hgb 7.5 L Hct 23.5 L MCV MCH 26 L MCHC RDW 21.2 H Plt Count Lymph % (Auto) 6.9 L [place] % (Auto) 9.4 H Lymph # 0.9 L [place] # 1.3 H Baso # Seg Neutrophils % 83.2 H Seg Neuts % (Manual) Lymphocytes % (Manual) Monocytes % (Manual) Eosinophils % (Manual) Basophils % (Manual) Nucleated RBC % Seg Neutrophils # 11.5 H Seg Neutrophils # Man Lymphocytes # (Manual) Monocytes # (Manual) Eosinophils # (Manual) Basophils # (Manual) PT INR Fibrinogen dRVVT Confirm Interp Factor V Activity POC ABG pH 7.308 L POC ABG pCO2 31.9 L POC ABG pO2 148 H ABG pO2 ABG HCO3 ABG Base Excess ABG Hemoglobin Oxyhemoglobin Sodium 147 H Potassium Chloride 114.2 H Carbon Dioxide 15 L BUN 120 H Creatinine 3.9 H Glucose 156 H POC Glucose Lactic Acid Calcium 8.2 L Ionized Calcium Phosphorus Magnesium Direct Bilirubin AST ALT Alkaline Phosphatase Lactate Dehydrogenase Troponin T C-Reactive Protein Total Protein Albumin Prealbumin Triglycerides Cholesterol LDL Cholesterol Direct HDL Cholesterol 25-OH Vitamin D Total PTH Intact Urine pH Urine WBC (Auto) Urine Creatinine Urine Total Protein Fluid Total Protein Vancomycin Trough Rheumatoid Factor Complement C4 Miscellaneous Test Crossmatch 09/21/16 09/21/16 09/21/16 12:00 12:03 13:00 WBC RBC Hgb Hct MCV MCH MCHC RDW Plt Count Lymph % (Auto) [place] % (Auto) Lymph # [place] # Baso # Seg Neutrophils % Seg Neuts % (Manual) Lymphocytes % (Manual) Monocytes % (Manual) Eosinophils % (Manual) Basophils % (Manual) Nucleated RBC % Seg Neutrophils # Seg Neutrophils # Man Lymphocytes # (Manual) Monocytes # (Manual) Eosinophils # (Manual) Basophils # (Manual) PT INR Fibrinogen dRVVT Confirm Interp Factor V Activity POC ABG pH POC ABG pCO2 POC ABG pO2 ABG pO2 ABG HCO3 ABG Base Excess ABG Hemoglobin Oxyhemoglobin Sodium Potassium Chloride Carbon Dioxide BUN Creatinine Glucose POC Glucose 163 H Lactic Acid Calcium Ionized Calcium Phosphorus Magnesium Direct Bilirubin AST ALT Alkaline Phosphatase Lactate Dehydrogenase Troponin T C-Reactive Protein Total Protein Albumin Prealbumin Triglycerides Cholesterol LDL Cholesterol Direct HDL Cholesterol 25-OH Vitamin D Total PTH Intact Urine pH Urine WBC (Auto) Urine Creatinine 54.8 H Urine Total Protein Fluid Total Protein Vancomycin Trough 2.3 L Rheumatoid Factor Complement C4 Miscellaneous Test Crossmatch 09/21/16 09/21/16 09/22/16 16:51 23:17 06:27 WBC RBC Hgb Hct MCV MCH MCHC RDW Plt Count Lymph % (Auto) [place] % (Auto) Lymph # [place] # Baso # Seg Neutrophils % Seg Neuts % (Manual) Lymphocytes % (Manual) Monocytes % (Manual) Eosinophils % (Manual) Basophils % (Manual) Nucleated RBC % Seg Neutrophils # Seg Neutrophils # Man Lymphocytes # (Manual) Monocytes # (Manual) Eosinophils # (Manual) Basophils # (Manual) PT INR Fibrinogen dRVVT Confirm Interp Factor V Activity POC ABG pH POC ABG pCO2 POC ABG pO2 ABG pO2 ABG HCO3 ABG Base Excess ABG Hemoglobin Oxyhemoglobin Sodium Potassium Chloride Carbon Dioxide BUN Creatinine Glucose POC Glucose 206 H 114 H 115 H Lactic Acid Calcium Ionized Calcium Phosphorus Magnesium Direct Bilirubin AST ALT Alkaline Phosphatase Lactate Dehydrogenase Troponin T C-Reactive Protein Total Protein Albumin Prealbumin Triglycerides Cholesterol LDL Cholesterol Direct HDL Cholesterol 25-OH Vitamin D Total PTH Intact Urine pH Urine WBC (Auto) Urine Creatinine Urine Total Protein Fluid Total Protein Vancomycin Trough Rheumatoid Factor Complement C4 Miscellaneous Test Crossmatch 09/22/16 09/22/16 09/22/16 07:50 07:50 12:00 WBC 17.8 H RBC 3.04 L Hgb 8.0 L Hct 24.7 L MCV MCH 26 L MCHC RDW 21.6 H Plt Count Lymph % (Auto) [place] % (Auto) Lymph # [place] # Baso # Seg Neutrophils % Seg Neuts % (Manual) Lymphocytes % (Manual) Monocytes % (Manual) Eosinophils % (Manual) Basophils % (Manual) Nucleated RBC % Seg Neutrophils # Seg Neutrophils # Man Lymphocytes # (Manual) Monocytes # (Manual) Eosinophils # (Manual) Basophils # (Manual) PT INR Fibrinogen dRVVT Confirm Interp Factor V Activity POC ABG pH POC ABG pCO2 POC ABG pO2 ABG pO2 ABG HCO3 ABG Base Excess ABG Hemoglobin Oxyhemoglobin Sodium 150 H Potassium Chloride 118.2 H Carbon Dioxide 14 L BUN 111 H Creatinine 3.7 H Glucose 157 H POC Glucose 183 H Lactic Acid Calcium Ionized Calcium Phosphorus Magnesium Direct Bilirubin AST ALT Alkaline Phosphatase Lactate Dehydrogenase Troponin T C-Reactive Protein Total Protein Albumin Prealbumin Triglycerides Cholesterol LDL Cholesterol Direct HDL Cholesterol 25-OH Vitamin D Total PTH Intact Urine pH Urine WBC (Auto) Urine Creatinine Urine Total Protein Fluid Total Protein Vancomycin Trough Rheumatoid Factor Complement C4 Miscellaneous Test Crossmatch 09/22/16 09/22/16 09/23/16 17:29 23:10 05:00 WBC 19.2 H RBC 3.13 L Hgb 8.0 L Hct 25.2 L MCV MCH 26 L MCHC RDW 22.1 H Plt Count Lymph % (Auto) [place] % (Auto) Lymph # [place] # Baso # Seg Neutrophils % Seg Neuts % (Manual) 92.0 H Lymphocytes % (Manual) 3.0 L Monocytes % (Manual) Eosinophils % (Manual) Basophils % (Manual) Nucleated RBC % Seg Neutrophils # Seg Neutrophils # Man 17.7 H Lymphocytes # (Manual) 0.6 L Monocytes # (Manual) Eosinophils # (Manual) Basophils # (Manual) PT INR Fibrinogen dRVVT Confirm Interp Factor V Activity POC ABG pH POC ABG pCO2 POC ABG pO2 ABG pO2 ABG HCO3 ABG Base Excess ABG Hemoglobin Oxyhemoglobin Sodium Potassium Chloride Carbon Dioxide BUN Creatinine Glucose POC Glucose 197 H 169 H Lactic Acid Calcium Ionized Calcium Phosphorus Magnesium Direct Bilirubin AST ALT Alkaline Phosphatase Lactate Dehydrogenase Troponin T C-Reactive Protein Total Protein Albumin Prealbumin Triglycerides Cholesterol LDL Cholesterol Direct HDL Cholesterol 25-OH Vitamin D Total PTH Intact Urine pH Urine WBC (Auto) Urine Creatinine Urine Total Protein Fluid Total Protein Vancomycin Trough Rheumatoid Factor Complement C4 Miscellaneous Test Crossmatch 09/23/16 09/23/16 09/23/16 05:00 05:00 05:10 WBC RBC Hgb Hct MCV MCH MCHC RDW Plt Count Lymph % (Auto) [place] % (Auto) Lymph # [place] # Baso # Seg Neutrophils % Seg Neuts % (Manual) Lymphocytes % (Manual) Monocytes % (Manual) Eosinophils % (Manual) Basophils % (Manual) Nucleated RBC % Seg Neutrophils # Seg Neutrophils # Man Lymphocytes # (Manual) Monocytes # (Manual) Eosinophils # (Manual) Basophils # (Manual) PT INR Fibrinogen dRVVT Confirm Interp Factor V Activity POC ABG pH POC ABG pCO2 POC ABG pO2 ABG pO2 ABG HCO3 ABG Base Excess ABG Hemoglobin Oxyhemoglobin Sodium 147 H Potassium 3.2 L Chloride 115.7 H Carbon Dioxide 13 L BUN 111 H Creatinine 3.8 H Glucose 194 H POC Glucose 188 H Lactic Acid Calcium 7.3 L D Ionized Calcium Phosphorus Magnesium Direct Bilirubin AST ALT Alkaline Phosphatase Lactate Dehydrogenase Troponin T C-Reactive Protein 3.20 H Total Protein Albumin Prealbumin Triglycerides Cholesterol LDL Cholesterol Direct HDL Cholesterol 25-OH Vitamin D Total PTH Intact Urine pH Urine WBC (Auto) Urine Creatinine Urine Total Protein Fluid Total Protein Vancomycin Trough Rheumatoid Factor Complement C4 Miscellaneous Test Crossmatch 09/23/16 09/23/16 09/23/16 11:37 12:29 18:01 WBC RBC Hgb Hct MCV MCH MCHC RDW Plt Count Lymph % (Auto) [place] % (Auto) Lymph # [place] # Baso # Seg Neutrophils % Seg Neuts % (Manual) Lymphocytes % (Manual) Monocytes % (Manual) Eosinophils % (Manual) Basophils % (Manual) Nucleated RBC % Seg Neutrophils # Seg Neutrophils # Man Lymphocytes # (Manual) Monocytes # (Manual) Eosinophils # (Manual) Basophils # (Manual) PT INR Fibrinogen dRVVT Confirm Interp Factor V Activity POC ABG pH POC ABG pCO2 18.9 L POC ABG pO2 143 H ABG pO2 ABG HCO3 ABG Base Excess ABG Hemoglobin Oxyhemoglobin Sodium Potassium Chloride Carbon Dioxide BUN Creatinine Glucose POC Glucose 153 H 108 H Lactic Acid Calcium Ionized Calcium Phosphorus Magnesium Direct Bilirubin AST ALT Alkaline Phosphatase Lactate Dehydrogenase Troponin T C-Reactive Protein Total Protein Albumin Prealbumin Triglycerides Cholesterol LDL Cholesterol Direct HDL Cholesterol 25-OH Vitamin D Total PTH Intact Urine pH Urine WBC (Auto) Urine Creatinine Urine Total Protein Fluid Total Protein Vancomycin Trough Rheumatoid Factor Complement C4 Miscellaneous Test Crossmatch 09/23/16 09/23/16 09/24/16 21:19 23:43 05:16 WBC RBC Hgb Hct MCV MCH MCHC RDW Plt Count Lymph % (Auto) [place] % (Auto) Lymph # [place] # Baso # Seg Neutrophils % Seg Neuts % (Manual) Lymphocytes % (Manual) Monocytes % (Manual) Eosinophils % (Manual) Basophils % (Manual) Nucleated RBC % Seg Neutrophils # Seg Neutrophils # Man Lymphocytes # (Manual) Monocytes # (Manual) Eosinophils # (Manual) Basophils # (Manual) PT INR Fibrinogen dRVVT Confirm Interp Factor V Activity POC ABG pH POC ABG pCO2 17.3 L POC ABG pO2 112 H ABG pO2 ABG HCO3 ABG Base Excess ABG Hemoglobin Oxyhemoglobin Sodium Potassium Chloride Carbon Dioxide BUN Creatinine Glucose POC Glucose 143 H 164 H Lactic Acid Calcium Ionized Calcium Phosphorus Magnesium Direct Bilirubin AST ALT Alkaline Phosphatase Lactate Dehydrogenase Troponin T C-Reactive Protein Total Protein Albumin Prealbumin Triglycerides Cholesterol LDL Cholesterol Direct HDL Cholesterol 25-OH Vitamin D Total PTH Intact Urine pH Urine WBC (Auto) Urine Creatinine Urine Total Protein Fluid Total Protein Vancomycin Trough Rheumatoid Factor Complement C4 Miscellaneous Test Crossmatch 09/24/16 09/24/16 09/24/16 05:21 11:58 17:06 WBC RBC Hgb Hct MCV MCH MCHC RDW Plt Count Lymph % (Auto) [place] % (Auto) Lymph # [place] # Baso # Seg Neutrophils % Seg Neuts % (Manual) Lymphocytes % (Manual) Monocytes % (Manual) Eosinophils % (Manual) Basophils % (Manual) Nucleated RBC % Seg Neutrophils # Seg Neutrophils # Man Lymphocytes # (Manual) Monocytes # (Manual) Eosinophils # (Manual) Basophils # (Manual) PT INR Fibrinogen dRVVT Confirm Interp Factor V Activity POC ABG pH POC ABG pCO2 POC ABG pO2 ABG pO2 ABG HCO3 ABG Base Excess ABG Hemoglobin Oxyhemoglobin Sodium Potassium Chloride Carbon Dioxide 10 L BUN 103 H Creatinine 4.3 H Glucose 163 H POC Glucose 173 H 167 H Lactic Acid Calcium 6.5 L Ionized Calcium Phosphorus Magnesium Direct Bilirubin AST ALT Alkaline Phosphatase Lactate Dehydrogenase Troponin T C-Reactive Protein Total Protein Albumin Prealbumin Triglycerides Cholesterol LDL Cholesterol Direct HDL Cholesterol 25-OH Vitamin D Total PTH Intact Urine pH Urine WBC (Auto) Urine Creatinine Urine Total Protein Fluid Total Protein Vancomycin Trough Rheumatoid Factor Complement C4 Miscellaneous Test Crossmatch 09/24/16 09/24/16 09/24/16 20:15 21:02 23:48 WBC RBC Hgb Hct MCV MCH MCHC RDW Plt Count Lymph % (Auto) [place] % (Auto) Lymph # [place] # Baso # Seg Neutrophils % Seg Neuts % (Manual) Lymphocytes % (Manual) Monocytes % (Manual) Eosinophils % (Manual) Basophils % (Manual) Nucleated RBC % Seg Neutrophils # Seg Neutrophils # Man Lymphocytes # (Manual) Monocytes # (Manual) Eosinophils # (Manual) Basophils # (Manual) PT INR Fibrinogen dRVVT Confirm Interp Factor V Activity POC ABG pH 7.288 L POC ABG pCO2 30.2 L 21.5 L POC ABG pO2 32 L 39 L ABG pO2 ABG HCO3 ABG Base Excess ABG Hemoglobin Oxyhemoglobin Sodium Potassium Chloride Carbon Dioxide BUN Creatinine Glucose POC Glucose 109 H Lactic Acid Calcium Ionized Calcium Phosphorus Magnesium Direct Bilirubin AST ALT Alkaline Phosphatase Lactate Dehydrogenase Troponin T C-Reactive Protein Total Protein Albumin Prealbumin Triglycerides Cholesterol LDL Cholesterol Direct HDL Cholesterol 25-OH Vitamin D Total PTH Intact Urine pH Urine WBC (Auto) Urine Creatinine Urine Total Protein Fluid Total Protein Vancomycin Trough Rheumatoid Factor Complement C4 Miscellaneous Test Crossmatch 09/25/16 09/25/16 09/25/16 04:20 04:20 04:20 WBC RBC 2.58 L Hgb 7.0 L Hct 21.0 L MCV MCH 27 L MCHC RDW 23.8 H Plt Count Lymph % (Auto) [place] % (Auto) Lymph # [place] # Baso # Seg Neutrophils % Seg Neuts % (Manual) Lymphocytes % (Manual) 12.0 L Monocytes % (Manual) Eosinophils % (Manual) 7.0 H Basophils % (Manual) 2.0 H Nucleated RBC % Seg Neutrophils # Seg Neutrophils # Man Lymphocytes # (Manual) 0.9 L Monocytes # (Manual) Eosinophils # (Manual) 0.5 H Basophils # (Manual) PT INR Fibrinogen dRVVT Confirm Interp Factor V Activity POC ABG pH POC ABG pCO2 POC ABG pO2 ABG pO2 ABG HCO3 ABG Base Excess ABG Hemoglobin Oxyhemoglobin Sodium Potassium Chloride Carbon Dioxide 15 L BUN 72 H Creatinine 3.8 H Glucose POC Glucose Lactic Acid Calcium 6.0 L Ionized Calcium Phosphorus 4.60 H Magnesium 1.60 L Direct Bilirubin AST ALT Alkaline Phosphatase Lactate Dehydrogenase Troponin T C-Reactive Protein Total Protein Albumin Prealbumin Triglycerides Cholesterol LDL Cholesterol Direct HDL Cholesterol 25-OH Vitamin D Total PTH Intact Urine pH Urine WBC (Auto) Urine Creatinine Urine Total Protein Fluid Total Protein Vancomycin Trough Rheumatoid Factor Complement C4 Miscellaneous Test Crossmatch 09/25/16 09/25/16 09/25/16 04:57 08:02 10:30 WBC RBC Hgb Hct MCV MCH MCHC RDW Plt Count Lymph % (Auto) [place] % (Auto) Lymph # [place] # Baso # Seg Neutrophils % Seg Neuts % (Manual) Lymphocytes % (Manual) Monocytes % (Manual) Eosinophils % (Manual) Basophils % (Manual) Nucleated RBC % Seg Neutrophils # Seg Neutrophils # Man Lymphocytes # (Manual) Monocytes # (Manual) Eosinophils # (Manual) Basophils # (Manual) PT INR Fibrinogen dRVVT Confirm Interp Factor V Activity POC ABG pH POC ABG pCO2 24.7 L POC ABG pO2 152 H ABG pO2 ABG HCO3 ABG Base Excess ABG Hemoglobin Oxyhemoglobin Sodium Potassium Chloride Carbon Dioxide BUN Creatinine Glucose POC Glucose 113 H Lactic Acid Calcium Ionized Calcium Phosphorus Magnesium Direct Bilirubin AST ALT Alkaline Phosphatase Lactate Dehydrogenase Troponin T C-Reactive Protein Total Protein Albumin Prealbumin Triglycerides Cholesterol LDL Cholesterol Direct HDL Cholesterol 25-OH Vitamin D Total PTH Intact Urine pH Urine WBC (Auto) Urine Creatinine Urine Total Protein Fluid Total Protein Vancomycin Trough Rheumatoid Factor Complement C4 Miscellaneous Test Crossmatch See Detail 09/25/16 09/25/16 09/25/16 12:05 17:44 23:47 WBC RBC Hgb Hct MCV MCH MCHC RDW Plt Count Lymph % (Auto) [place] % (Auto) Lymph # [place] # Baso # Seg Neutrophils % Seg Neuts % (Manual) Lymphocytes % (Manual) Monocytes % (Manual) Eosinophils % (Manual) Basophils % (Manual) Nucleated RBC % Seg Neutrophils # Seg Neutrophils # Man Lymphocytes # (Manual) Monocytes # (Manual) Eosinophils # (Manual) Basophils # (Manual) PT INR Fibrinogen dRVVT Confirm Interp Factor V Activity POC ABG pH POC ABG pCO2 POC ABG pO2 ABG pO2 ABG HCO3 ABG Base Excess ABG Hemoglobin Oxyhemoglobin Sodium Potassium Chloride Carbon Dioxide BUN Creatinine Glucose POC Glucose 117 H 119 H 150 H Lactic Acid Calcium Ionized Calcium Phosphorus Magnesium Direct Bilirubin AST ALT Alkaline Phosphatase Lactate Dehydrogenase Troponin T C-Reactive Protein Total Protein Albumin Prealbumin Triglycerides Cholesterol LDL Cholesterol Direct HDL Cholesterol 25-OH Vitamin D Total PTH Intact Urine pH Urine WBC (Auto) Urine Creatinine Urine Total Protein Fluid Total Protein Vancomycin Trough Rheumatoid Factor Complement C4 Miscellaneous Test Crossmatch 09/26/16 09/26/16 09/26/16 04:25 04:25 04:25 WBC RBC 2.65 L Hgb 7.4 L Hct 21.6 L MCV MCH MCHC RDW 22.5 H Plt Count Lymph % (Auto) [place] % (Auto) Lymph # [place] # Baso # Seg Neutrophils % Seg Neuts % (Manual) Lymphocytes % (Manual) 6.0 L Monocytes % (Manual) Eosinophils % (Manual) 11.0 H Basophils % (Manual) Nucleated RBC % Seg Neutrophils # Seg Neutrophils # Man Lymphocytes # (Manual) 0.4 L Monocytes # (Manual) Eosinophils # (Manual) 0.6 H Basophils # (Manual) PT INR Fibrinogen dRVVT Confirm Interp Factor V Activity POC ABG pH POC ABG pCO2 POC ABG pO2 ABG pO2 ABG HCO3 ABG Base Excess ABG Hemoglobin Oxyhemoglobin Sodium Potassium Chloride 97.0 L Carbon Dioxide 19 L BUN 43 H Creatinine 2.6 H Glucose 130 H POC Glucose Lactic Acid 4.40 H* Calcium 6.7 L Ionized Calcium Phosphorus Magnesium Direct Bilirubin AST ALT Alkaline Phosphatase Lactate Dehydrogenase Troponin T C-Reactive Protein Total Protein Albumin Prealbumin Triglycerides Cholesterol LDL Cholesterol Direct HDL Cholesterol 25-OH Vitamin D Total PTH Intact Urine pH Urine WBC (Auto) Urine Creatinine Urine Total Protein Fluid Total Protein Vancomycin Trough Rheumatoid Factor Complement C4 Miscellaneous Test Crossmatch 09/26/16 09/26/16 09/26/16 05:20 11:44 12:12 WBC RBC Hgb Hct MCV MCH MCHC RDW Plt Count Lymph % (Auto) [place] % (Auto) Lymph # [place] # Baso # Seg Neutrophils % Seg Neuts % (Manual) Lymphocytes % (Manual) Monocytes % (Manual) Eosinophils % (Manual) Basophils % (Manual) Nucleated RBC % Seg Neutrophils # Seg Neutrophils # Man Lymphocytes # (Manual) Monocytes # (Manual) Eosinophils # (Manual) Basophils # (Manual) PT INR Fibrinogen dRVVT Confirm Interp Factor V Activity POC ABG pH POC ABG pCO2 27.0 L POC ABG pO2 69 L ABG pO2 ABG HCO3 ABG Base Excess ABG Hemoglobin Oxyhemoglobin Sodium Potassium Chloride Carbon Dioxide BUN Creatinine Glucose POC Glucose 121 H 128 H Lactic Acid Calcium Ionized Calcium Phosphorus Magnesium Direct Bilirubin AST ALT Alkaline Phosphatase Lactate Dehydrogenase Troponin T C-Reactive Protein Total Protein Albumin Prealbumin Triglycerides Cholesterol LDL Cholesterol Direct HDL Cholesterol 25-OH Vitamin D Total PTH Intact Urine pH Urine WBC (Auto) Urine Creatinine Urine Total Protein Fluid Total Protein Vancomycin Trough Rheumatoid Factor Complement C4 Miscellaneous Test Crossmatch 09/26/16 09/26/16 09/27/16 18:31 23:40 08:20 WBC RBC Hgb Hct MCV MCH MCHC RDW Plt Count Lymph % (Auto) [place] % (Auto) Lymph # [place] # Baso # Seg Neutrophils % Seg Neuts % (Manual) Lymphocytes % (Manual) Monocytes % (Manual) Eosinophils % (Manual) Basophils % (Manual) Nucleated RBC % Seg Neutrophils # Seg Neutrophils # Man Lymphocytes # (Manual) Monocytes # (Manual) Eosinophils # (Manual) Basophils # (Manual) PT INR Fibrinogen dRVVT Confirm Interp Factor V Activity POC ABG pH POC ABG pCO2 POC ABG pO2 ABG pO2 ABG HCO3 ABG Base Excess ABG Hemoglobin Oxyhemoglobin Sodium Potassium Chloride Carbon Dioxide BUN Creatinine Glucose POC Glucose 120 H 133 H Lactic Acid 4.10 H* Calcium Ionized Calcium Phosphorus Magnesium Direct Bilirubin AST ALT Alkaline Phosphatase Lactate Dehydrogenase Troponin T C-Reactive Protein Total Protein Albumin Prealbumin Triglycerides Cholesterol LDL Cholesterol Direct HDL Cholesterol 25-OH Vitamin D Total PTH Intact Urine pH Urine WBC (Auto) Urine Creatinine Urine Total Protein Fluid Total Protein Vancomycin Trough Rheumatoid Factor Complement C4 Miscellaneous Test Crossmatch 09/27/16 09/27/16 09/27/16 11:23 15:00 18:15 WBC RBC Hgb Hct MCV MCH MCHC RDW Plt Count Lymph % (Auto) [place] % (Auto) Lymph # [place] # Baso # Seg Neutrophils % Seg Neuts % (Manual) Lymphocytes % (Manual) Monocytes % (Manual) Eosinophils % (Manual) Basophils % (Manual) Nucleated RBC % Seg Neutrophils # Seg Neutrophils # Man Lymphocytes # (Manual) Monocytes # (Manual) Eosinophils # (Manual) Basophils # (Manual) PT INR Fibrinogen dRVVT Confirm Interp Factor V Activity POC ABG pH 7.459 H POC ABG pCO2 27.1 L POC ABG pO2 140 H ABG pO2 ABG HCO3 ABG Base Excess ABG Hemoglobin Oxyhemoglobin Sodium Potassium Chloride Carbon Dioxide BUN Creatinine Glucose POC Glucose 114 H 127 H Lactic Acid Calcium Ionized Calcium Phosphorus Magnesium Direct Bilirubin AST ALT Alkaline Phosphatase Lactate Dehydrogenase Troponin T C-Reactive Protein Total Protein Albumin Prealbumin Triglycerides Cholesterol LDL Cholesterol Direct HDL Cholesterol 25-OH Vitamin D Total PTH Intact Urine pH Urine WBC (Auto) Urine Creatinine Urine Total Protein Fluid Total Protein Vancomycin Trough Rheumatoid Factor Complement C4 Miscellaneous Test Crossmatch 09/27/16 09/27/16 09/28/16 Unknown Unknown 03:45 WBC RBC 2.49 L Hgb 6.8 L Hct 20.7 L MCV MCH 27 L MCHC RDW 22.1 H Plt Count Lymph % (Auto) [place] % (Auto) Lymph # [place] # Baso # Seg Neutrophils % Seg Neuts % (Manual) 32.0 L Lymphocytes % (Manual) 12.0 L Monocytes % (Manual) 11.0 H Eosinophils % (Manual) 10.0 H Basophils % (Manual) Nucleated RBC % Seg Neutrophils # Seg Neutrophils # Man Lymphocytes # (Manual) 1.0 L Monocytes # (Manual) 0.9 H Eosinophils # (Manual) 0.8 H Basophils # (Manual) PT INR Fibrinogen dRVVT Confirm Interp Factor V Activity POC ABG pH POC ABG pCO2 POC ABG pO2 ABG pO2 ABG HCO3 ABG Base Excess ABG Hemoglobin Oxyhemoglobin Sodium 135 L 135 L Potassium 3.5 L Chloride 93.6 L 94.4 L Carbon Dioxide 17 L 21 L BUN 45 H 28 H Creatinine 3.3 H 2.5 H Glucose 106 H POC Glucose Lactic Acid Calcium 7.3 L 7.1 L Ionized Calcium Phosphorus Magnesium Direct Bilirubin AST ALT Alkaline Phosphatase Lactate Dehydrogenase Troponin T C-Reactive Protein Total Protein Albumin Prealbumin Triglycerides Cholesterol LDL Cholesterol Direct HDL Cholesterol 25-OH Vitamin D Total PTH Intact Urine pH Urine WBC (Auto) Urine Creatinine Urine Total Protein Fluid Total Protein Vancomycin Trough Rheumatoid Factor Complement C4 Miscellaneous Test Crossmatch 09/28/16 09/28/16 09/28/16 03:45 07:25 11:58 WBC 13.3 H RBC 3.01 L Hgb 8.4 L Hct 25.0 L MCV MCH MCHC RDW 20.5 H Plt Count 128 L Lymph % (Auto) [place] % (Auto) Lymph # [place] # Baso # Seg Neutrophils % Seg Neuts % (Manual) Lymphocytes % (Manual) 7.0 L Monocytes % (Manual) Eosinophils % (Manual) 6.0 H Basophils % (Manual) Nucleated RBC % Seg Neutrophils # Seg Neutrophils # Man Lymphocytes # (Manual) 0.9 L Monocytes # (Manual) Eosinophils # (Manual) 0.8 H Basophils # (Manual) PT INR Fibrinogen dRVVT Confirm Interp Factor V Activity POC ABG pH POC ABG pCO2 POC ABG pO2 ABG pO2 ABG HCO3 ABG Base Excess ABG Hemoglobin Oxyhemoglobin Sodium Potassium Chloride Carbon Dioxide BUN Creatinine Glucose POC Glucose 121 H Lactic Acid 4.50 H* Calcium Ionized Calcium Phosphorus Magnesium Direct Bilirubin AST ALT Alkaline Phosphatase Lactate Dehydrogenase Troponin T C-Reactive Protein Total Protein Albumin Prealbumin Triglycerides Cholesterol LDL Cholesterol Direct HDL Cholesterol 25-OH Vitamin D Total PTH Intact Urine pH Urine WBC (Auto) Urine Creatinine Urine Total Protein Fluid Total Protein Vancomycin Trough Rheumatoid Factor Complement C4 Miscellaneous Test Crossmatch 09/29/16 09/29/16 09/29/16 06:45 06:45 06:45 WBC 14.9 H RBC 2.74 L Hgb 7.6 L Hct 23.2 L MCV MCH MCHC RDW 20.5 H Plt Count 81 L Lymph % (Auto) [place] % (Auto) Lymph # [place] # Baso # Seg Neutrophils % Seg Neuts % (Manual) 81.0 H Lymphocytes % (Manual) 4.0 L Monocytes % (Manual) Eosinophils % (Manual) Basophils % (Manual) Nucleated RBC % Seg Neutrophils # Seg Neutrophils # Man 12.1 H Lymphocytes # (Manual) 0.6 L Monocytes # (Manual) Eosinophils # (Manual) Basophils # (Manual) PT INR Fibrinogen dRVVT Confirm Interp Factor V Activity POC ABG pH POC ABG pCO2 POC ABG pO2 ABG pO2 ABG HCO3 ABG Base Excess ABG Hemoglobin Oxyhemoglobin Sodium 133 L Potassium 3.4 L Chloride 92.5 L Carbon Dioxide 21 L BUN 33 H Creatinine 3.0 H Glucose POC Glucose Lactic Acid Calcium 6.6 L Ionized Calcium Phosphorus Magnesium 1.40 L Direct Bilirubin 0.9 H AST ALT Alkaline Phosphatase Lactate Dehydrogenase Troponin T C-Reactive Protein Total Protein 4.3 L Albumin 1.3 L Prealbumin Triglycerides Cholesterol LDL Cholesterol Direct HDL Cholesterol 25-OH Vitamin D Total PTH Intact Urine pH Urine WBC (Auto) Urine Creatinine Urine Total Protein Fluid Total Protein Vancomycin Trough Rheumatoid Factor Complement C4 Miscellaneous Test Crossmatch 09/29/16 09/29/16 09/30/16 17:52 20:12 00:07 WBC RBC Hgb Hct MCV MCH MCHC RDW Plt Count Lymph % (Auto) [place] % (Auto) Lymph # [place] # Baso # Seg Neutrophils % Seg Neuts % (Manual) Lymphocytes % (Manual) Monocytes % (Manual) Eosinophils % (Manual) Basophils % (Manual) Nucleated RBC % Seg Neutrophils # Seg Neutrophils # Man Lymphocytes # (Manual) Monocytes # (Manual) Eosinophils # (Manual) Basophils # (Manual) PT INR Fibrinogen dRVVT Confirm Interp Factor V Activity POC ABG pH POC ABG pCO2 POC ABG pO2 ABG pO2 ABG HCO3 ABG Base Excess ABG Hemoglobin Oxyhemoglobin Sodium Potassium Chloride Carbon Dioxide BUN Creatinine Glucose POC Glucose 50 L 51 L Lactic Acid Calcium Ionized Calcium Phosphorus Magnesium Direct Bilirubin AST ALT Alkaline Phosphatase Lactate Dehydrogenase Troponin T 0.204 H* C-Reactive Protein Total Protein Albumin Prealbumin Triglycerides Cholesterol 31 L LDL Cholesterol Direct 4 L HDL Cholesterol 3 L 25-OH Vitamin D Total PTH Intact Urine pH Urine WBC (Auto) Urine Creatinine Urine Total Protein Fluid Total Protein Vancomycin Trough Rheumatoid Factor Complement C4 Miscellaneous Test Crossmatch 09/30/16 09/30/16 09/30/16 01:30 05:15 06:10 WBC RBC Hgb Hct MCV MCH MCHC RDW Plt Count Lymph % (Auto) [place] % (Auto) Lymph # [place] # Baso # Seg Neutrophils % Seg Neuts % (Manual) Lymphocytes % (Manual) Monocytes % (Manual) Eosinophils % (Manual) Basophils % (Manual) Nucleated RBC % Seg Neutrophils # Seg Neutrophils # Man Lymphocytes # (Manual) Monocytes # (Manual) Eosinophils # (Manual) Basophils # (Manual) PT INR Fibrinogen dRVVT Confirm Interp Factor V Activity POC ABG pH POC ABG pCO2 POC ABG pO2 ABG pO2 ABG HCO3 ABG Base Excess ABG Hemoglobin Oxyhemoglobin Sodium 133 L Potassium 3.2 L Chloride 93.2 L Carbon Dioxide 19 L BUN 36 H Creatinine 3.2 H Glucose 104 H POC Glucose 167 H 146 H Lactic Acid Calcium 6.4 L Ionized Calcium Phosphorus Magnesium 1.60 L Direct Bilirubin AST ALT Alkaline Phosphatase Lactate Dehydrogenase Troponin T C-Reactive Protein Total Protein Albumin Prealbumin Triglycerides Cholesterol LDL Cholesterol Direct HDL Cholesterol 25-OH Vitamin D Total PTH Intact Urine pH Urine WBC (Auto) Urine Creatinine Urine Total Protein Fluid Total Protein Vancomycin Trough Rheumatoid Factor Complement C4 Miscellaneous Test Crossmatch 09/30/16 09/30/16 09/30/16 11:26 13:39 18:38 WBC RBC Hgb Hct MCV MCH MCHC RDW Plt Count Lymph % (Auto) [place] % (Auto) Lymph # [place] # Baso # Seg Neutrophils % Seg Neuts % (Manual) Lymphocytes % (Manual) Monocytes % (Manual) Eosinophils % (Manual) Basophils % (Manual) Nucleated RBC % Seg Neutrophils # Seg Neutrophils # Man Lymphocytes # (Manual) Monocytes # (Manual) Eosinophils # (Manual) Basophils # (Manual) PT INR Fibrinogen dRVVT Confirm Interp Factor V Activity POC ABG pH 7.479 H POC ABG pCO2 29.8 L POC ABG pO2 117 H ABG pO2 ABG HCO3 ABG Base Excess ABG Hemoglobin Oxyhemoglobin Sodium Potassium Chloride Carbon Dioxide BUN Creatinine Glucose POC Glucose 140 H 122 H Lactic Acid Calcium Ionized Calcium Phosphorus Magnesium Direct Bilirubin AST ALT Alkaline Phosphatase Lactate Dehydrogenase Troponin T C-Reactive Protein Total Protein Albumin Prealbumin Triglycerides Cholesterol LDL Cholesterol Direct HDL Cholesterol 25-OH Vitamin D Total PTH Intact Urine pH Urine WBC (Auto) Urine Creatinine Urine Total Protein Fluid Total Protein Vancomycin Trough Rheumatoid Factor Complement C4 Miscellaneous Test Crossmatch 10/01/16 10/01/16 10/01/16 06:00 06:00 12:37 WBC 12.6 H RBC 2.75 L Hgb 7.3 L Hct 23.3 L MCV MCH 27 L MCHC RDW 20.6 H Plt Count 72 L Lymph % (Auto) [place] % (Auto) Lymph # [place] # Baso # Seg Neutrophils % Seg Neuts % (Manual) 31.0 L Lymphocytes % (Manual) 8.0 L Monocytes % (Manual) Eosinophils % (Manual) Basophils % (Manual) Nucleated RBC % 3.0 H Seg Neutrophils # Seg Neutrophils # Man Lymphocytes # (Manual) 1.0 L Monocytes # (Manual) Eosinophils # (Manual) Basophils # (Manual) PT INR Fibrinogen dRVVT Confirm Interp Factor V Activity POC ABG pH POC ABG pCO2 POC ABG pO2 ABG pO2 ABG HCO3 ABG Base Excess ABG Hemoglobin Oxyhemoglobin Sodium 127 L Potassium Chloride 86.8 L Carbon Dioxide 20 L BUN 42 H Creatinine 3.5 H Glucose POC Glucose 65 L Lactic Acid Calcium 7.0 L Ionized Calcium Phosphorus Magnesium Direct Bilirubin AST ALT Alkaline Phosphatase Lactate Dehydrogenase Troponin T C-Reactive Protein Total Protein Albumin Prealbumin Triglycerides Cholesterol LDL Cholesterol Direct HDL Cholesterol 25-OH Vitamin D Total PTH Intact Urine pH Urine WBC (Auto) Urine Creatinine Urine Total Protein Fluid Total Protein Vancomycin Trough Rheumatoid Factor Complement C4 Miscellaneous Test Crossmatch 10/01/16 10/01/16 10/02/16 17:39 23:32 00:59 WBC RBC Hgb Hct MCV MCH MCHC RDW Plt Count Lymph % (Auto) [place] % (Auto) Lymph # [place] # Baso # Seg Neutrophils % Seg Neuts % (Manual) Lymphocytes % (Manual) Monocytes % (Manual) Eosinophils % (Manual) Basophils % (Manual) Nucleated RBC % Seg Neutrophils # Seg Neutrophils # Man Lymphocytes # (Manual) Monocytes # (Manual) Eosinophils # (Manual) Basophils # (Manual) PT INR Fibrinogen dRVVT Confirm Interp Factor V Activity POC ABG pH POC ABG pCO2 POC ABG pO2 ABG pO2 ABG HCO3 ABG Base Excess ABG Hemoglobin Oxyhemoglobin Sodium Potassium Chloride Carbon Dioxide BUN Creatinine Glucose POC Glucose 107 H 52 L 145 H Lactic Acid Calcium Ionized Calcium Phosphorus Magnesium Direct Bilirubin AST ALT Alkaline Phosphatase Lactate Dehydrogenase Troponin T C-Reactive Protein Total Protein Albumin Prealbumin Triglycerides Cholesterol LDL Cholesterol Direct HDL Cholesterol 25-OH Vitamin D Total PTH Intact Urine pH Urine WBC (Auto) Urine Creatinine Urine Total Protein Fluid Total Protein Vancomycin Trough Rheumatoid Factor Complement C4 Miscellaneous Test Crossmatch 10/02/16 10/02/16 10/02/16 10:30 10:50 10:50 WBC 14.7 H RBC 2.76 L Hgb 7.4 L Hct 23.6 L MCV MCH 27 L MCHC RDW 20.2 H Plt Count 79 L Lymph % (Auto) [place] % (Auto) Lymph # [place] # Baso # Seg Neutrophils % Seg Neuts % (Manual) 86.0 H Lymphocytes % (Manual) 6.0 L Monocytes % (Manual) Eosinophils % (Manual) Basophils % (Manual) Nucleated RBC % Seg Neutrophils # Seg Neutrophils # Man 12.6 H Lymphocytes # (Manual) 0.9 L Monocytes # (Manual) Eosinophils # (Manual) Basophils # (Manual) PT INR Fibrinogen dRVVT Confirm Interp Factor V Activity POC ABG pH 7.486 H POC ABG pCO2 30.1 L POC ABG pO2 108 H ABG pO2 ABG HCO3 ABG Base Excess ABG Hemoglobin Oxyhemoglobin Sodium 131 L Potassium 3.4 L Chloride 89.9 L Carbon Dioxide BUN 26 H Creatinine 2.6 H Glucose POC Glucose Lactic Acid Calcium 7.0 L Ionized Calcium Phosphorus Magnesium Direct Bilirubin AST ALT Alkaline Phosphatase Lactate Dehydrogenase Troponin T C-Reactive Protein Total Protein Albumin Prealbumin Triglycerides Cholesterol LDL Cholesterol Direct HDL Cholesterol 25-OH Vitamin D Total PTH Intact Urine pH Urine WBC (Auto) Urine Creatinine Urine Total Protein Fluid Total Protein Vancomycin Trough Rheumatoid Factor Complement C4 Miscellaneous Test Crossmatch 10/02/16 10/03/16 10/03/16 23:45 00:45 05:10 WBC 12.9 H RBC 2.77 L Hgb 7.6 L Hct 23.7 L MCV MCH 27 L MCHC RDW 19.7 H Plt Count 89 L Lymph % (Auto) [place] % (Auto) Lymph # [place] # Baso # Seg Neutrophils % Seg Neuts % (Manual) Lymphocytes % (Manual) 8.0 L Monocytes % (Manual) Eosinophils % (Manual) Basophils % (Manual) Nucleated RBC % Seg Neutrophils # 11.9 H Seg Neutrophils # Man Lymphocytes # (Manual) 1.0 L Monocytes # (Manual) Eosinophils # (Manual) Basophils # (Manual) PT INR Fibrinogen dRVVT Confirm Interp Factor V Activity POC ABG pH POC ABG pCO2 POC ABG pO2 ABG pO2 ABG HCO3 ABG Base Excess ABG Hemoglobin Oxyhemoglobin Sodium Potassium Chloride Carbon Dioxide BUN Creatinine Glucose POC Glucose 55 L 199 H Lactic Acid Calcium Ionized Calcium Phosphorus Magnesium Direct Bilirubin AST ALT Alkaline Phosphatase Lactate Dehydrogenase Troponin T C-Reactive Protein Total Protein Albumin Prealbumin Triglycerides Cholesterol LDL Cholesterol Direct HDL Cholesterol 25-OH Vitamin D Total PTH Intact Urine pH Urine WBC (Auto) Urine Creatinine Urine Total Protein Fluid Total Protein Vancomycin Trough Rheumatoid Factor Complement C4 Miscellaneous Test Crossmatch 10/03/16 10/03/16 10/03/16 05:10 12:14 13:18 WBC RBC Hgb Hct MCV MCH MCHC RDW Plt Count Lymph % (Auto) [place] % (Auto) Lymph # [place] # Baso # Seg Neutrophils % Seg Neuts % (Manual) Lymphocytes % (Manual) Monocytes % (Manual) Eosinophils % (Manual) Basophils % (Manual) Nucleated RBC % Seg Neutrophils # Seg Neutrophils # Man Lymphocytes # (Manual) Monocytes # (Manual) Eosinophils # (Manual) Basophils # (Manual) PT INR Fibrinogen dRVVT Confirm Interp Factor V Activity POC ABG pH POC ABG pCO2 POC ABG pO2 ABG pO2 ABG HCO3 ABG Base Excess ABG Hemoglobin Oxyhemoglobin Sodium 129 L Potassium 3.3 L Chloride 88.8 L Carbon Dioxide 20 L BUN 29 H Creatinine 2.8 H Glucose POC Glucose 68 L 127 H Lactic Acid Calcium 7.2 L Ionized Calcium Phosphorus Magnesium Direct Bilirubin AST ALT Alkaline Phosphatase Lactate Dehydrogenase Troponin T C-Reactive Protein Total Protein Albumin Prealbumin Triglycerides Cholesterol LDL Cholesterol Direct HDL Cholesterol 25-OH Vitamin D Total PTH Intact Urine pH Urine WBC (Auto) Urine Creatinine Urine Total Protein Fluid Total Protein Vancomycin Trough Rheumatoid Factor Complement C4 Miscellaneous Test Crossmatch 10/03/16 10/03/16 10/03/16 14:42 18:21 19:09 WBC RBC Hgb Hct MCV MCH MCHC RDW Plt Count Lymph % (Auto) [place] % (Auto) Lymph # [place] # Baso # Seg Neutrophils % Seg Neuts % (Manual) Lymphocytes % (Manual) Monocytes % (Manual) Eosinophils % (Manual) Basophils % (Manual) Nucleated RBC % Seg Neutrophils # Seg Neutrophils # Man Lymphocytes # (Manual) Monocytes # (Manual) Eosinophils # (Manual) Basophils # (Manual) PT INR Fibrinogen dRVVT Confirm Interp Factor V Activity POC ABG pH 7.499 H POC ABG pCO2 28.4 L POC ABG pO2 44 L ABG pO2 ABG HCO3 ABG Base Excess ABG Hemoglobin Oxyhemoglobin Sodium Potassium Chloride Carbon Dioxide BUN Creatinine Glucose POC Glucose 64 L 205 H Lactic Acid Calcium Ionized Calcium Phosphorus Magnesium Direct Bilirubin AST ALT Alkaline Phosphatase Lactate Dehydrogenase Troponin T C-Reactive Protein Total Protein Albumin Prealbumin Triglycerides Cholesterol LDL Cholesterol Direct HDL Cholesterol 25-OH Vitamin D Total PTH Intact Urine pH Urine WBC (Auto) Urine Creatinine Urine Total Protein Fluid Total Protein Vancomycin Trough Rheumatoid Factor Complement C4 Miscellaneous Test Crossmatch 10/03/16 10/04/16 10/04/16 23:33 04:18 06:30 WBC RBC 2.54 L Hgb 7.1 L Hct 21.7 L MCV MCH MCHC RDW 19.5 H Plt Count 76 L Lymph % (Auto) [place] % (Auto) Lymph # [place] # Baso # Seg Neutrophils % Seg Neuts % (Manual) 88.0 H Lymphocytes % (Manual) 6.0 L Monocytes % (Manual) Eosinophils % (Manual) Basophils % (Manual) Nucleated RBC % Seg Neutrophils # Seg Neutrophils # Man 8.8 H Lymphocytes # (Manual) 0.6 L Monocytes # (Manual) Eosinophils # (Manual) Basophils # (Manual) PT INR Fibrinogen dRVVT Confirm Interp Factor V Activity POC ABG pH 7.461 H POC ABG pCO2 33.6 L POC ABG pO2 211 H ABG pO2 ABG HCO3 ABG Base Excess ABG Hemoglobin Oxyhemoglobin Sodium Potassium Chloride Carbon Dioxide BUN Creatinine Glucose POC Glucose 136 H Lactic Acid Calcium Ionized Calcium Phosphorus Magnesium Direct Bilirubin AST ALT Alkaline Phosphatase Lactate Dehydrogenase Troponin T C-Reactive Protein Total Protein Albumin Prealbumin Triglycerides Cholesterol LDL Cholesterol Direct HDL Cholesterol 25-OH Vitamin D Total PTH Intact Urine pH Urine WBC (Auto) Urine Creatinine Urine Total Protein Fluid Total Protein Vancomycin Trough Rheumatoid Factor Complement C4 Miscellaneous Test Crossmatch 10/04/16 10/04/16 10/04/16 06:30 11:45 17:54 WBC RBC Hgb Hct MCV MCH MCHC RDW Plt Count Lymph % (Auto) [place] % (Auto) Lymph # [place] # Baso # Seg Neutrophils % Seg Neuts % (Manual) Lymphocytes % (Manual) Monocytes % (Manual) Eosinophils % (Manual) Basophils % (Manual) Nucleated RBC % Seg Neutrophils # Seg Neutrophils # Man Lymphocytes # (Manual) Monocytes # (Manual) Eosinophils # (Manual) Basophils # (Manual) PT INR Fibrinogen dRVVT Confirm Interp Factor V Activity POC ABG pH POC ABG pCO2 POC ABG pO2 ABG pO2 ABG HCO3 ABG Base Excess ABG Hemoglobin Oxyhemoglobin Sodium 128 L Potassium Chloride 87.4 L Carbon Dioxide 20 L BUN 34 H Creatinine 2.9 H Glucose 127 H POC Glucose 158 H 160 H Lactic Acid Calcium 7.4 L Ionized Calcium Phosphorus Magnesium Direct Bilirubin AST ALT Alkaline Phosphatase Lactate Dehydrogenase Troponin T C-Reactive Protein Total Protein Albumin Prealbumin Triglycerides Cholesterol LDL Cholesterol Direct HDL Cholesterol 25-OH Vitamin D Total PTH Intact Urine pH Urine WBC (Auto) Urine Creatinine Urine Total Protein Fluid Total Protein Vancomycin Trough Rheumatoid Factor Complement C4 Miscellaneous Test Crossmatch 10/04/16 10/05/16 10/05/16 23:25 04:30 05:00 WBC RBC 2.64 L Hgb 7.5 L Hct 22.6 L MCV MCH MCHC RDW 19.3 H Plt Count 80 L Lymph % (Auto) [place] % (Auto) Lymph # [place] # Baso # Seg Neutrophils % Seg Neuts % (Manual) Lymphocytes % (Manual) 12.0 L Monocytes % (Manual) Eosinophils % (Manual) Basophils % (Manual) Nucleated RBC % Seg Neutrophils # Seg Neutrophils # Man Lymphocytes # (Manual) Monocytes # (Manual) Eosinophils # (Manual) Basophils # (Manual) PT INR Fibrinogen dRVVT Confirm Interp Factor V Activity POC ABG pH 7.475 H POC ABG pCO2 33.3 L POC ABG pO2 140 H ABG pO2 ABG HCO3 ABG Base Excess ABG Hemoglobin Oxyhemoglobin Sodium Potassium Chloride Carbon Dioxide BUN Creatinine Glucose POC Glucose 141 H Lactic Acid Calcium Ionized Calcium Phosphorus Magnesium Direct Bilirubin AST ALT Alkaline Phosphatase Lactate Dehydrogenase Troponin T C-Reactive Protein Total Protein Albumin Prealbumin Triglycerides Cholesterol LDL Cholesterol Direct HDL Cholesterol 25-OH Vitamin D Total PTH Intact Urine pH Urine WBC (Auto) Urine Creatinine Urine Total Protein Fluid Total Protein Vancomycin Trough Rheumatoid Factor Complement C4 Miscellaneous Test Crossmatch 10/05/16 10/05/16 10/05/16 05:00 05:09 12:58 WBC RBC Hgb Hct MCV MCH MCHC RDW Plt Count Lymph % (Auto) [place] % (Auto) Lymph # [place] # Baso # Seg Neutrophils % Seg Neuts % (Manual) Lymphocytes % (Manual) Monocytes % (Manual) Eosinophils % (Manual) Basophils % (Manual) Nucleated RBC % Seg Neutrophils # Seg Neutrophils # Man Lymphocytes # (Manual) Monocytes # (Manual) Eosinophils # (Manual) Basophils # (Manual) PT INR Fibrinogen dRVVT Confirm Interp Factor V Activity POC ABG pH POC ABG pCO2 POC ABG pO2 ABG pO2 ABG HCO3 ABG Base Excess ABG Hemoglobin Oxyhemoglobin Sodium 131 L Potassium Chloride 94.0 L Carbon Dioxide 20 L BUN 22 H Creatinine 2.0 H Glucose 123 H POC Glucose 166 H 179 H Lactic Acid Calcium 7.7 L Ionized Calcium Phosphorus 2.20 L D Magnesium Direct Bilirubin AST ALT Alkaline Phosphatase Lactate Dehydrogenase Troponin T C-Reactive Protein Total Protein Albumin Prealbumin Triglycerides Cholesterol LDL Cholesterol Direct HDL Cholesterol 25-OH Vitamin D Total PTH Intact Urine pH Urine WBC (Auto) Urine Creatinine Urine Total Protein Fluid Total Protein Vancomycin Trough Rheumatoid Factor Complement C4 Miscellaneous Test Crossmatch 10/05/16 10/05/16 10/05/16 15:50 18:53 23:12 WBC RBC Hgb Hct MCV MCH MCHC RDW Plt Count Lymph % (Auto) [place] % (Auto) Lymph # [place] # Baso # Seg Neutrophils % Seg Neuts % (Manual) Lymphocytes % (Manual) Monocytes % (Manual) Eosinophils % (Manual) Basophils % (Manual) Nucleated RBC % Seg Neutrophils # Seg Neutrophils # Man Lymphocytes # (Manual) Monocytes # (Manual) Eosinophils # (Manual) Basophils # (Manual) PT INR Fibrinogen dRVVT Confirm Interp Factor V Activity POC ABG pH POC ABG pCO2 POC ABG pO2 ABG pO2 ABG HCO3 ABG Base Excess ABG Hemoglobin Oxyhemoglobin Sodium Potassium Chloride Carbon Dioxide BUN Creatinine Glucose POC Glucose 150 H 164 H Lactic Acid Calcium Ionized Calcium Phosphorus Magnesium Direct Bilirubin AST ALT Alkaline Phosphatase Lactate Dehydrogenase Troponin T C-Reactive Protein Total Protein Albumin Prealbumin Triglycerides Cholesterol LDL Cholesterol Direct HDL Cholesterol 25-OH Vitamin D Total PTH Intact Urine pH Urine WBC (Auto) Urine Creatinine Urine Total Protein Fluid Total Protein Vancomycin Trough Rheumatoid Factor Complement C4 Miscellaneous Test Crossmatch See Detail 10/06/16 10/06/16 10/06/16 03:50 03:50 04:53 WBC RBC 3.00 L Hgb 8.6 L Hct 25.8 L MCV MCH MCHC RDW 17.9 H Plt Count 65 L Lymph % (Auto) [place] % (Auto) Lymph # [place] # Baso # Seg Neutrophils % Seg Neuts % (Manual) 30.0 L Lymphocytes % (Manual) 5.0 L Monocytes % (Manual) Eosinophils % (Manual) Basophils % (Manual) Nucleated RBC % Seg Neutrophils # Seg Neutrophils # Man Lymphocytes # (Manual) 0.4 L Monocytes # (Manual) Eosinophils # (Manual) Basophils # (Manual) PT INR Fibrinogen dRVVT Confirm Interp Factor V Activity POC ABG pH 7.310 L POC ABG pCO2 49.0 H POC ABG pO2 ABG pO2 ABG HCO3 ABG Base Excess ABG Hemoglobin Oxyhemoglobin Sodium 133 L Potassium Chloride 95.9 L Carbon Dioxide BUN 26 H Creatinine 2.0 H Glucose 116 H POC Glucose Lactic Acid Calcium 7.8 L Ionized Calcium Phosphorus Magnesium Direct Bilirubin AST ALT Alkaline Phosphatase Lactate Dehydrogenase Troponin T C-Reactive Protein Total Protein Albumin Prealbumin Triglycerides Cholesterol LDL Cholesterol Direct HDL Cholesterol 25-OH Vitamin D Total PTH Intact Urine pH Urine WBC (Auto) Urine Creatinine Urine Total Protein Fluid Total Protein Vancomycin Trough Rheumatoid Factor Complement C4 Miscellaneous Test Crossmatch 10/06/16 10/06/16 10/06/16 05:23 11:52 18:34 WBC RBC Hgb Hct MCV MCH MCHC RDW Plt Count Lymph % (Auto) [place] % (Auto) Lymph # [place] # Baso # Seg Neutrophils % Seg Neuts % (Manual) Lymphocytes % (Manual) Monocytes % (Manual) Eosinophils % (Manual) Basophils % (Manual) Nucleated RBC % Seg Neutrophils # Seg Neutrophils # Man Lymphocytes # (Manual) Monocytes # (Manual) Eosinophils # (Manual) Basophils # (Manual) PT INR Fibrinogen dRVVT Confirm Interp Factor V Activity POC ABG pH POC ABG pCO2 POC ABG pO2 ABG pO2 ABG HCO3 ABG Base Excess ABG Hemoglobin Oxyhemoglobin Sodium Potassium Chloride Carbon Dioxide BUN Creatinine Glucose POC Glucose 126 H 116 H 129 H Lactic Acid Calcium Ionized Calcium Phosphorus Magnesium Direct Bilirubin AST ALT Alkaline Phosphatase Lactate Dehydrogenase Troponin T C-Reactive Protein Total Protein Albumin Prealbumin Triglycerides Cholesterol LDL Cholesterol Direct HDL Cholesterol 25-OH Vitamin D Total PTH Intact Urine pH Urine WBC (Auto) Urine Creatinine Urine Total Protein Fluid Total Protein Vancomycin Trough Rheumatoid Factor Complement C4 Miscellaneous Test Crossmatch 10/07/16 10/07/16 10/07/16 03:45 05:00 10:00 WBC 17.0 H RBC 2.68 L Hgb 7.3 L Hct 25.3 L MCV MCH 27 L MCHC 29 L RDW 19.6 H Plt Count 74 L Lymph % (Auto) [place] % (Auto) Lymph # [place] # Baso # Seg Neutrophils % Seg Neuts % (Manual) Lymphocytes % (Manual) 12.0 L Monocytes % (Manual) Eosinophils % (Manual) Basophils % (Manual) Nucleated RBC % 4.0 H Seg Neutrophils # Seg Neutrophils # Man 10.7 H Lymphocytes # (Manual) Monocytes # (Manual) Eosinophils # (Manual) Basophils # (Manual) PT INR Fibrinogen dRVVT Confirm Interp Factor V Activity POC ABG pH POC ABG pCO2 POC ABG pO2 ABG pO2 ABG HCO3 ABG Base Excess ABG Hemoglobin Oxyhemoglobin Sodium 130 L Potassium 3.2 L Chloride 93.9 L Carbon Dioxide 20 L BUN 44 H Creatinine 2.7 H Glucose 129 H POC Glucose Lactic Acid Calcium 7.4 L Ionized Calcium Phosphorus Magnesium Direct Bilirubin AST ALT 6 L Alkaline Phosphatase 195 H Lactate Dehydrogenase Troponin T C-Reactive Protein Total Protein 4.9 L Albumin 1.0 L Prealbumin Triglycerides Cholesterol LDL Cholesterol Direct HDL Cholesterol 25-OH Vitamin D Total PTH Intact Urine pH Urine WBC (Auto) Urine Creatinine Urine Total Protein Fluid Total Protein Vancomycin Trough Rheumatoid Factor Complement C4 Miscellaneous Test Flexitest 1 H Crossmatch 10/07/16 10/07/16 10/07/16 10:00 11:24 18:10 WBC RBC Hgb Hct MCV MCH MCHC RDW Plt Count Lymph % (Auto) [place] % (Auto) Lymph # [place] # Baso # Seg Neutrophils % Seg Neuts % (Manual) Lymphocytes % (Manual) Monocytes % (Manual) Eosinophils % (Manual) Basophils % (Manual) Nucleated RBC % Seg Neutrophils # Seg Neutrophils # Man Lymphocytes # (Manual) Monocytes # (Manual) Eosinophils # (Manual) Basophils # (Manual) PT INR Fibrinogen dRVVT Confirm Interp Factor V Activity POC ABG pH POC ABG pCO2 POC ABG pO2 ABG pO2 ABG HCO3 ABG Base Excess ABG Hemoglobin Oxyhemoglobin Sodium Potassium Chloride Carbon Dioxide BUN Creatinine Glucose POC Glucose 116 H 130 H Lactic Acid Calcium Ionized Calcium Phosphorus Magnesium Direct Bilirubin AST ALT Alkaline Phosphatase Lactate Dehydrogenase Troponin T C-Reactive Protein 19.40 H Total Protein Albumin Prealbumin Triglycerides Cholesterol LDL Cholesterol Direct HDL Cholesterol 25-OH Vitamin D Total PTH Intact Urine pH Urine WBC (Auto) Urine Creatinine Urine Total Protein Fluid Total Protein Vancomycin Trough Rheumatoid Factor Complement C4 Miscellaneous Test Crossmatch 10/07/16 10/08/16 10/08/16 18:30 00:00 04:00 WBC RBC Hgb Hct MCV MCH MCHC RDW Plt Count Lymph % (Auto) [place] % (Auto) Lymph # [place] # Baso # Seg Neutrophils % Seg Neuts % (Manual) Lymphocytes % (Manual) Monocytes % (Manual) Eosinophils % (Manual) Basophils % (Manual) Nucleated RBC % Seg Neutrophils # Seg Neutrophils # Man Lymphocytes # (Manual) Monocytes # (Manual) Eosinophils # (Manual) Basophils # (Manual) PT INR Fibrinogen dRVVT Confirm Interp Factor V Activity POC ABG pH POC ABG pCO2 POC ABG pO2 ABG pO2 ABG HCO3 ABG Base Excess ABG Hemoglobin Oxyhemoglobin Sodium 132 L Potassium 3.3 L Chloride 93.6 L Carbon Dioxide 17 L BUN 59 H Creatinine 2.7 H Glucose 121 H POC Glucose 122 H Lactic Acid Calcium 7.6 L Ionized Calcium Phosphorus Magnesium Direct Bilirubin AST ALT Alkaline Phosphatase Lactate Dehydrogenase Troponin T C-Reactive Protein Total Protein Albumin Prealbumin Triglycerides Cholesterol LDL Cholesterol Direct HDL Cholesterol 25-OH Vitamin D Total PTH Intact Urine pH Urine WBC (Auto) > 182.0 H Urine Creatinine Urine Total Protein Fluid Total Protein Vancomycin Trough Rheumatoid Factor Complement C4 Miscellaneous Test Crossmatch 10/08/16 10/08/16 10/08/16 04:30 05:30 11:51 WBC RBC 5.15 H Hgb 14.4 H D Hct 44.5 H D MCV MCH MCHC RDW 19.5 H Plt Count 56 L Lymph % (Auto) [place] % (Auto) Lymph # [place] # Baso # Seg Neutrophils % Seg Neuts % (Manual) 24.0 L Lymphocytes % (Manual) 8.0 L Monocytes % (Manual) Eosinophils % (Manual) Basophils % (Manual) Nucleated RBC % 9.0 H Seg Neutrophils # Seg Neutrophils # Man Lymphocytes # (Manual) 0.7 L Monocytes # (Manual) Eosinophils # (Manual) Basophils # (Manual) PT INR Fibrinogen dRVVT Confirm Interp Factor V Activity POC ABG pH POC ABG pCO2 POC ABG pO2 ABG pO2 ABG HCO3 ABG Base Excess ABG Hemoglobin Oxyhemoglobin Sodium Potassium Chloride Carbon Dioxide BUN Creatinine Glucose POC Glucose 125 H 150 H Lactic Acid Calcium Ionized Calcium Phosphorus Magnesium Direct Bilirubin AST ALT Alkaline Phosphatase Lactate Dehydrogenase Troponin T C-Reactive Protein Total Protein Albumin Prealbumin Triglycerides Cholesterol LDL Cholesterol Direct HDL Cholesterol 25-OH Vitamin D Total PTH Intact Urine pH Urine WBC (Auto) Urine Creatinine Urine Total Protein Fluid Total Protein Vancomycin Trough Rheumatoid Factor Complement C4 Miscellaneous Test Crossmatch 10/08/16 10/08/16 10/08/16 12:49 17:07 19:30 WBC RBC Hgb 7.1 L D Hct 22.4 L D MCV MCH MCHC RDW Plt Count Lymph % (Auto) [place] % (Auto) Lymph # [place] # Baso # Seg Neutrophils % Seg Neuts % (Manual) Lymphocytes % (Manual) Monocytes % (Manual) Eosinophils % (Manual) Basophils % (Manual) Nucleated RBC % Seg Neutrophils # Seg Neutrophils # Man Lymphocytes # (Manual) Monocytes # (Manual) Eosinophils # (Manual) Basophils # (Manual) PT INR Fibrinogen dRVVT Confirm Interp Factor V Activity POC ABG pH POC ABG pCO2 28.2 L POC ABG pO2 111 H ABG pO2 ABG HCO3 ABG Base Excess ABG Hemoglobin Oxyhemoglobin Sodium Potassium Chloride Carbon Dioxide BUN Creatinine Glucose POC Glucose 145 H Lactic Acid Calcium Ionized Calcium Phosphorus Magnesium Direct Bilirubin AST ALT Alkaline Phosphatase Lactate Dehydrogenase Troponin T C-Reactive Protein Total Protein Albumin Prealbumin Triglycerides Cholesterol LDL Cholesterol Direct HDL Cholesterol 25-OH Vitamin D Total PTH Intact Urine pH Urine WBC (Auto) Urine Creatinine Urine Total Protein Fluid Total Protein Vancomycin Trough Rheumatoid Factor Complement C4 Miscellaneous Test Crossmatch 10/08/16 10/09/16 10/09/16 19:30 03:45 03:45 WBC 12.6 H RBC 2.36 L Hgb 6.7 L Hct 21.1 L MCV MCH MCHC RDW 19.5 H Plt Count 75 L Lymph % (Auto) [place] % (Auto) Lymph # [place] # Baso # Seg Neutrophils % Seg Neuts % (Manual) Lymphocytes % (Manual) Monocytes % (Manual) 10.0 H Eosinophils % (Manual) Basophils % (Manual) Nucleated RBC % 3.0 H Seg Neutrophils # Seg Neutrophils # Man Lymphocytes # (Manual) Monocytes # (Manual) 1.3 H Eosinophils # (Manual) Basophils # (Manual) PT 18.0 H INR 1.41 H Fibrinogen dRVVT Confirm Interp Factor V Activity POC ABG pH POC ABG pCO2 POC ABG pO2 ABG pO2 ABG HCO3 ABG Base Excess ABG Hemoglobin Oxyhemoglobin Sodium 135 L Potassium Chloride Carbon Dioxide 17 L BUN 81 H Creatinine 3.2 H Glucose 109 H POC Glucose Lactic Acid Calcium 7.4 L Ionized Calcium Phosphorus 4.60 H D Magnesium Direct Bilirubin AST ALT Alkaline Phosphatase Lactate Dehydrogenase Troponin T C-Reactive Protein Total Protein Albumin Prealbumin Triglycerides Cholesterol LDL Cholesterol Direct HDL Cholesterol 25-OH Vitamin D Total PTH Intact Urine pH Urine WBC (Auto) Urine Creatinine Urine Total Protein Fluid Total Protein Vancomycin Trough Rheumatoid Factor Complement C4 Miscellaneous Test Crossmatch 10/09/16 10/09/16 10/09/16 03:45 05:14 07:20 WBC RBC Hgb Hct MCV MCH MCHC RDW Plt Count Lymph % (Auto) [place] % (Auto) Lymph # [place] # Baso # Seg Neutrophils % Seg Neuts % (Manual) Lymphocytes % (Manual) Monocytes % (Manual) Eosinophils % (Manual) Basophils % (Manual) Nucleated RBC % Seg Neutrophils # Seg Neutrophils # Man Lymphocytes # (Manual) Monocytes # (Manual) Eosinophils # (Manual) Basophils # (Manual) PT 19.0 H INR 1.51 H Fibrinogen dRVVT Confirm Interp Factor V Activity POC ABG pH POC ABG pCO2 POC ABG pO2 ABG pO2 ABG HCO3 ABG Base Excess ABG Hemoglobin Oxyhemoglobin Sodium Potassium Chloride Carbon Dioxide BUN Creatinine Glucose POC Glucose 151 H Lactic Acid Calcium Ionized Calcium Phosphorus Magnesium Direct Bilirubin AST ALT Alkaline Phosphatase Lactate Dehydrogenase Troponin T C-Reactive Protein Total Protein Albumin Prealbumin Triglycerides Cholesterol LDL Cholesterol Direct HDL Cholesterol 25-OH Vitamin D Total PTH Intact Urine pH Urine WBC (Auto) Urine Creatinine Urine Total Protein Fluid Total Protein Vancomycin Trough Rheumatoid Factor Complement C4 Miscellaneous Test Crossmatch See Detail 10/09/16 10/09/16 10/09/16 11:46 16:20 16:43 WBC RBC Hgb 7.2 L Hct 22.2 L MCV MCH MCHC RDW Plt Count Lymph % (Auto) [place] % (Auto) Lymph # [place] # Baso # Seg Neutrophils % Seg Neuts % (Manual) Lymphocytes % (Manual) Monocytes % (Manual) Eosinophils % (Manual) Basophils % (Manual) Nucleated RBC % Seg Neutrophils # Seg Neutrophils # Man Lymphocytes # (Manual) Monocytes # (Manual) Eosinophils # (Manual) Basophils # (Manual) PT INR Fibrinogen dRVVT Confirm Interp Factor V Activity POC ABG pH POC ABG pCO2 POC ABG pO2 ABG pO2 ABG HCO3 ABG Base Excess ABG Hemoglobin Oxyhemoglobin Sodium Potassium Chloride Carbon Dioxide BUN Creatinine Glucose POC Glucose 133 H 141 H Lactic Acid Calcium Ionized Calcium Phosphorus Magnesium Direct Bilirubin AST ALT Alkaline Phosphatase Lactate Dehydrogenase Troponin T C-Reactive Protein Total Protein Albumin Prealbumin Triglycerides Cholesterol LDL Cholesterol Direct HDL Cholesterol 25-OH Vitamin D Total PTH Intact Urine pH Urine WBC (Auto) Urine Creatinine Urine Total Protein Fluid Total Protein Vancomycin Trough Rheumatoid Factor Complement C4 Miscellaneous Test Crossmatch 10/10/16 10/10/16 10/10/16 05:00 05:00 11:19 WBC 18.5 H RBC 2.19 L Hgb 6.4 L Hct 19.6 L* MCV MCH MCHC RDW 19.3 H Plt Count 93 L Lymph % (Auto) [place] % (Auto) Lymph # [place] # Baso # Seg Neutrophils % Seg Neuts % (Manual) Lymphocytes % (Manual) 10.0 L Monocytes % (Manual) Eosinophils % (Manual) Basophils % (Manual) Nucleated RBC % 4.0 H Seg Neutrophils # Seg Neutrophils # Man 11.3 H Lymphocytes # (Manual) Monocytes # (Manual) Eosinophils # (Manual) Basophils # (Manual) PT INR Fibrinogen dRVVT Confirm Interp Factor V Activity POC ABG pH POC ABG pCO2 POC ABG pO2 ABG pO2 ABG HCO3 ABG Base Excess ABG Hemoglobin Oxyhemoglobin Sodium Potassium 5.7 H D Chloride Carbon Dioxide 16 L BUN 94 H Creatinine 3.1 H Glucose 131 H POC Glucose 153 H Lactic Acid Calcium 8.2 L Ionized Calcium Phosphorus 5.10 H Magnesium 2.40 H Direct Bilirubin 0.3 H AST ALT < 5 L Alkaline Phosphatase 319 H Lactate Dehydrogenase Troponin T C-Reactive Protein Total Protein 5.1 L Albumin 1.0 L Prealbumin Triglycerides Cholesterol LDL Cholesterol Direct HDL Cholesterol 25-OH Vitamin D Total PTH Intact Urine pH Urine WBC (Auto) Urine Creatinine Urine Total Protein Fluid Total Protein Vancomycin Trough Rheumatoid Factor Complement C4 Miscellaneous Test Crossmatch 10/10/16 10/10/16 10/11/16 17:50 23:30 04:15 WBC RBC Hgb Hct MCV MCH MCHC RDW Plt Count Lymph % (Auto) [place] % (Auto) Lymph # [place] # Baso # Seg Neutrophils % Seg Neuts % (Manual) Lymphocytes % (Manual) Monocytes % (Manual) Eosinophils % (Manual) Basophils % (Manual) Nucleated RBC % Seg Neutrophils # Seg Neutrophils # Man Lymphocytes # (Manual) Monocytes # (Manual) Eosinophils # (Manual) Basophils # (Manual) PT INR Fibrinogen dRVVT Confirm Interp Factor V Activity POC ABG pH POC ABG pCO2 POC ABG pO2 ABG pO2 ABG HCO3 ABG Base Excess ABG Hemoglobin Oxyhemoglobin Sodium Potassium Chloride 96.4 L Carbon Dioxide 21 L BUN 57 H Creatinine 2.1 H Glucose 151 H POC Glucose 146 H 141 H Lactic Acid Calcium 8.3 L Ionized Calcium Phosphorus Magnesium Direct Bilirubin AST ALT Alkaline Phosphatase Lactate Dehydrogenase Troponin T C-Reactive Protein Total Protein Albumin Prealbumin Triglycerides Cholesterol LDL Cholesterol Direct HDL Cholesterol 25-OH Vitamin D Total PTH Intact Urine pH Urine WBC (Auto) Urine Creatinine Urine Total Protein Fluid Total Protein Vancomycin Trough Rheumatoid Factor Complement C4 Miscellaneous Test Crossmatch 10/11/16 10/11/16 10/11/16 04:15 04:15 05:30 WBC 28.3 H RBC 3.12 L Hgb 9.3 L Hct 28.7 L D MCV MCH MCHC RDW 17.7 H Plt Count 128 L Lymph % (Auto) [place] % (Auto) Lymph # [place] # Baso # Seg Neutrophils % Seg Neuts % (Manual) Lymphocytes % (Manual) Monocytes % (Manual) Eosinophils % (Manual) Basophils % (Manual) Nucleated RBC % Seg Neutrophils # Seg Neutrophils # Man Lymphocytes # (Manual) Monocytes # (Manual) Eosinophils # (Manual) Basophils # (Manual) PT INR Fibrinogen dRVVT Confirm Interp Factor V Activity POC ABG pH POC ABG pCO2 POC ABG pO2 ABG pO2 ABG HCO3 ABG Base Excess ABG Hemoglobin Oxyhemoglobin Sodium Potassium Chloride Carbon Dioxide BUN Creatinine Glucose POC Glucose 167 H Lactic Acid Calcium Ionized Calcium Phosphorus Magnesium Direct Bilirubin AST ALT Alkaline Phosphatase Lactate Dehydrogenase Troponin T C-Reactive Protein 15.80 H Total Protein Albumin Prealbumin Triglycerides Cholesterol LDL Cholesterol Direct HDL Cholesterol 25-OH Vitamin D Total PTH Intact Urine pH Urine WBC (Auto) Urine Creatinine Urine Total Protein Fluid Total Protein Vancomycin Trough Rheumatoid Factor Complement C4 Miscellaneous Test Crossmatch 10/11/16 10/11/16 10/11/16 11:40 15:49 23:57 WBC RBC Hgb Hct MCV MCH MCHC RDW Plt Count Lymph % (Auto) [place] % (Auto) Lymph # [place] # Baso # Seg Neutrophils % Seg Neuts % (Manual) Lymphocytes % (Manual) Monocytes % (Manual) Eosinophils % (Manual) Basophils % (Manual) Nucleated RBC % Seg Neutrophils # Seg Neutrophils # Man Lymphocytes # (Manual) Monocytes # (Manual) Eosinophils # (Manual) Basophils # (Manual) PT INR Fibrinogen dRVVT Confirm Interp Factor V Activity POC ABG pH POC ABG pCO2 POC ABG pO2 ABG pO2 ABG HCO3 ABG Base Excess ABG Hemoglobin Oxyhemoglobin Sodium Potassium Chloride Carbon Dioxide BUN Creatinine Glucose POC Glucose 139 H 168 H 161 H Lactic Acid Calcium Ionized Calcium Phosphorus Magnesium Direct Bilirubin AST ALT Alkaline Phosphatase Lactate Dehydrogenase Troponin T C-Reactive Protein Total Protein Albumin Prealbumin Triglycerides Cholesterol LDL Cholesterol Direct HDL Cholesterol 25-OH Vitamin D Total PTH Intact Urine pH Urine WBC (Auto) Urine Creatinine Urine Total Protein Fluid Total Protein Vancomycin Trough Rheumatoid Factor Complement C4 Miscellaneous Test Crossmatch 10/12/16 10/12/16 10/12/16 04:40 04:40 05:44 WBC 22.5 H RBC 2.88 L Hgb 8.8 L Hct 26.8 L MCV MCH MCHC RDW 17.8 H Plt Count Lymph % (Auto) [place] % (Auto) Lymph # [place] # Baso # Seg Neutrophils % Seg Neuts % (Manual) Lymphocytes % (Manual) Monocytes % (Manual) Eosinophils % (Manual) Basophils % (Manual) Nucleated RBC % Seg Neutrophils # Seg Neutrophils # Man Lymphocytes # (Manual) Monocytes # (Manual) Eosinophils # (Manual) Basophils # (Manual) PT INR Fibrinogen dRVVT Confirm Interp Factor V Activity POC ABG pH POC ABG pCO2 POC ABG pO2 ABG pO2 ABG HCO3 ABG Base Excess ABG Hemoglobin Oxyhemoglobin Sodium 134 L Potassium Chloride 93.0 L Carbon Dioxide BUN 74 H Creatinine 2.5 H Glucose 137 H POC Glucose 158 H Lactic Acid Calcium 8.2 L Ionized Calcium Phosphorus Magnesium Direct Bilirubin AST ALT Alkaline Phosphatase Lactate Dehydrogenase Troponin T C-Reactive Protein Total Protein Albumin Prealbumin Triglycerides Cholesterol LDL Cholesterol Direct HDL Cholesterol 25-OH Vitamin D Total PTH Intact Urine pH Urine WBC (Auto) Urine Creatinine Urine Total Protein Fluid Total Protein Vancomycin Trough Rheumatoid Factor Complement C4 Miscellaneous Test Crossmatch 10/12/16 10/12/16 10/12/16 12:27 18:18 23:46 WBC RBC Hgb Hct MCV MCH MCHC RDW Plt Count Lymph % (Auto) [place] % (Auto) Lymph # [place] # Baso # Seg Neutrophils % Seg Neuts % (Manual) Lymphocytes % (Manual) Monocytes % (Manual) Eosinophils % (Manual) Basophils % (Manual) Nucleated RBC % Seg Neutrophils # Seg Neutrophils # Man Lymphocytes # (Manual) Monocytes # (Manual) Eosinophils # (Manual) Basophils # (Manual) PT INR Fibrinogen dRVVT Confirm Interp Factor V Activity POC ABG pH POC ABG pCO2 POC ABG pO2 ABG pO2 ABG HCO3 ABG Base Excess ABG Hemoglobin Oxyhemoglobin Sodium Potassium Chloride Carbon Dioxide BUN Creatinine Glucose POC Glucose 153 H 140 H 150 H Lactic Acid Calcium Ionized Calcium Phosphorus Magnesium Direct Bilirubin AST ALT Alkaline Phosphatase Lactate Dehydrogenase Troponin T C-Reactive Protein Total Protein Albumin Prealbumin Triglycerides Cholesterol LDL Cholesterol Direct HDL Cholesterol 25-OH Vitamin D Total PTH Intact Urine pH Urine WBC (Auto) Urine Creatinine Urine Total Protein Fluid Total Protein Vancomycin Trough Rheumatoid Factor Complement C4 Miscellaneous Test Crossmatch 10/13/16 10/13/16 10/13/16 06:22 09:20 12:29 WBC RBC Hgb Hct MCV MCH MCHC RDW Plt Count Lymph % (Auto) [place] % (Auto) Lymph # [place] # Baso # Seg Neutrophils % Seg Neuts % (Manual) Lymphocytes % (Manual) Monocytes % (Manual) Eosinophils % (Manual) Basophils % (Manual) Nucleated RBC % Seg Neutrophils # Seg Neutrophils # Man Lymphocytes # (Manual) Monocytes # (Manual) Eosinophils # (Manual) Basophils # (Manual) PT INR Fibrinogen dRVVT Confirm Interp Factor V Activity POC ABG pH POC ABG pCO2 POC ABG pO2 ABG pO2 ABG HCO3 ABG Base Excess ABG Hemoglobin Oxyhemoglobin Sodium Potassium Chloride Carbon Dioxide BUN Creatinine Glucose POC Glucose 165 H 193 H Lactic Acid Calcium Ionized Calcium Phosphorus Magnesium Direct Bilirubin AST ALT Alkaline Phosphatase Lactate Dehydrogenase Troponin T C-Reactive Protein Total Protein Albumin Prealbumin Triglycerides Cholesterol LDL Cholesterol Direct HDL Cholesterol 25-OH Vitamin D Total PTH Intact Urine pH Urine WBC (Auto) Urine Creatinine Urine Total Protein Fluid Total Protein Vancomycin Trough Rheumatoid Factor Complement C4 Miscellaneous Test Flexitest 1 H Crossmatch 10/13/16 10/13/16 10/13/16 18:09 Unknown Unknown WBC 23.4 H RBC 2.83 L Hgb 8.7 L Hct 26.1 L MCV MCH MCHC RDW 18.1 H Plt Count Lymph % (Auto) [place] % (Auto) Lymph # [place] # Baso # Seg Neutrophils % Seg Neuts % (Manual) Lymphocytes % (Manual) Monocytes % (Manual) Eosinophils % (Manual) Basophils % (Manual) Nucleated RBC % Seg Neutrophils # Seg Neutrophils # Man Lymphocytes # (Manual) Monocytes # (Manual) Eosinophils # (Manual) Basophils # (Manual) PT INR Fibrinogen dRVVT Confirm Interp Factor V Activity POC ABG pH POC ABG pCO2 POC ABG pO2 ABG pO2 ABG HCO3 ABG Base Excess ABG Hemoglobin Oxyhemoglobin Sodium Potassium Chloride 95.8 L Carbon Dioxide BUN 82 H Creatinine 2.6 H Glucose 152 H POC Glucose 166 H Lactic Acid Calcium Ionized Calcium Phosphorus Magnesium Direct Bilirubin AST ALT Alkaline Phosphatase Lactate Dehydrogenase Troponin T C-Reactive Protein Total Protein Albumin Prealbumin Triglycerides Cholesterol LDL Cholesterol Direct HDL Cholesterol 25-OH Vitamin D Total PTH Intact Urine pH Urine WBC (Auto) Urine Creatinine Urine Total Protein Fluid Total Protein Vancomycin Trough Rheumatoid Factor Complement C4 Miscellaneous Test Crossmatch 10/14/16 10/14/16 10/14/16 05:38 06:35 08:10 WBC 20.7 H RBC 2.81 L Hgb 8.4 L Hct 27.2 L MCV MCH MCHC RDW 19.4 H Plt Count Lymph % (Auto) [place] % (Auto) Lymph # [place] # Baso # Seg Neutrophils % Seg Neuts % (Manual) Lymphocytes % (Manual) Monocytes % (Manual) Eosinophils % (Manual) Basophils % (Manual) Nucleated RBC % Seg Neutrophils # Seg Neutrophils # Man Lymphocytes # (Manual) Monocytes # (Manual) Eosinophils # (Manual) Basophils # (Manual) PT INR Fibrinogen dRVVT Confirm Interp Factor V Activity POC ABG pH POC ABG pCO2 POC ABG pO2 ABG pO2 ABG HCO3 ABG Base Excess ABG Hemoglobin Oxyhemoglobin Sodium Potassium Chloride Carbon Dioxide BUN 58 H Creatinine 1.9 H Glucose 169 H POC Glucose 195 H Lactic Acid Calcium Ionized Calcium Phosphorus Magnesium Direct Bilirubin AST ALT Alkaline Phosphatase Lactate Dehydrogenase Troponin T C-Reactive Protein Total Protein Albumin Prealbumin Triglycerides Cholesterol LDL Cholesterol Direct HDL Cholesterol 25-OH Vitamin D Total PTH Intact Urine pH Urine WBC (Auto) Urine Creatinine Urine Total Protein Fluid Total Protein Vancomycin Trough Rheumatoid Factor Complement C4 Miscellaneous Test Crossmatch 10/14/16 10/14/16 10/14/16 11:44 17:13 23:28 WBC RBC Hgb Hct MCV MCH MCHC RDW Plt Count Lymph % (Auto) [place] % (Auto) Lymph # [place] # Baso # Seg Neutrophils % Seg Neuts % (Manual) Lymphocytes % (Manual) Monocytes % (Manual) Eosinophils % (Manual) Basophils % (Manual) Nucleated RBC % Seg Neutrophils # Seg Neutrophils # Man Lymphocytes # (Manual) Monocytes # (Manual) Eosinophils # (Manual) Basophils # (Manual) PT INR Fibrinogen dRVVT Confirm Interp Factor V Activity POC ABG pH POC ABG pCO2 POC ABG pO2 ABG pO2 ABG HCO3 ABG Base Excess ABG Hemoglobin Oxyhemoglobin Sodium Potassium Chloride Carbon Dioxide BUN Creatinine Glucose POC Glucose 174 H 121 H 151 H Lactic Acid Calcium Ionized Calcium Phosphorus Magnesium Direct Bilirubin AST ALT Alkaline Phosphatase Lactate Dehydrogenase Troponin T C-Reactive Protein Total Protein Albumin Prealbumin Triglycerides Cholesterol LDL Cholesterol Direct HDL Cholesterol 25-OH Vitamin D Total PTH Intact Urine pH Urine WBC (Auto) Urine Creatinine Urine Total Protein Fluid Total Protein Vancomycin Trough Rheumatoid Factor Complement C4 Miscellaneous Test Crossmatch 10/15/16 10/15/16 10/15/16 05:06 12:26 17:48 WBC RBC Hgb Hct MCV MCH MCHC RDW Plt Count Lymph % (Auto) [place] % (Auto) Lymph # [place] # Baso # Seg Neutrophils % Seg Neuts % (Manual) Lymphocytes % (Manual) Monocytes % (Manual) Eosinophils % (Manual) Basophils % (Manual) Nucleated RBC % Seg Neutrophils # Seg Neutrophils # Man Lymphocytes # (Manual) Monocytes # (Manual) Eosinophils # (Manual) Basophils # (Manual) PT INR Fibrinogen dRVVT Confirm Interp Factor V Activity POC ABG pH POC ABG pCO2 POC ABG pO2 ABG pO2 ABG HCO3 ABG Base Excess ABG Hemoglobin Oxyhemoglobin Sodium Potassium Chloride Carbon Dioxide BUN Creatinine Glucose POC Glucose 151 H 149 H 153 H Lactic Acid Calcium Ionized Calcium Phosphorus Magnesium Direct Bilirubin AST ALT Alkaline Phosphatase Lactate Dehydrogenase Troponin T C-Reactive Protein Total Protein Albumin Prealbumin Triglycerides Cholesterol LDL Cholesterol Direct HDL Cholesterol 25-OH Vitamin D Total PTH Intact Urine pH Urine WBC (Auto) Urine Creatinine Urine Total Protein Fluid Total Protein Vancomycin Trough Rheumatoid Factor Complement C4 Miscellaneous Test Crossmatch 10/15/16 10/15/16 10/16/16 Unknown Unknown 00:02 WBC 23.4 H RBC 2.78 L Hgb 8.5 L Hct 25.7 L MCV MCH MCHC RDW 18.7 H Plt Count Lymph % (Auto) [place] % (Auto) Lymph # [place] # Baso # Seg Neutrophils % Seg Neuts % (Manual) Lymphocytes % (Manual) Monocytes % (Manual) Eosinophils % (Manual) Basophils % (Manual) Nucleated RBC % Seg Neutrophils # Seg Neutrophils # Man Lymphocytes # (Manual) Monocytes # (Manual) Eosinophils # (Manual) Basophils # (Manual) PT INR Fibrinogen dRVVT Confirm Interp Factor V Activity POC ABG pH POC ABG pCO2 POC ABG pO2 ABG pO2 ABG HCO3 ABG Base Excess ABG Hemoglobin Oxyhemoglobin Sodium Potassium Chloride Carbon Dioxide BUN 73 H Creatinine 2.3 H Glucose 120 H POC Glucose 137 H Lactic Acid Calcium Ionized Calcium Phosphorus Magnesium Direct Bilirubin AST ALT Alkaline Phosphatase Lactate Dehydrogenase Troponin T C-Reactive Protein Total Protein Albumin Prealbumin Triglycerides Cholesterol LDL Cholesterol Direct HDL Cholesterol 25-OH Vitamin D Total PTH Intact Urine pH Urine WBC (Auto) Urine Creatinine Urine Total Protein Fluid Total Protein Vancomycin Trough Rheumatoid Factor Complement C4 Miscellaneous Test Crossmatch 10/16/16 10/16/16 10/16/16 05:44 06:25 06:25 WBC 22.5 H RBC 2.76 L Hgb 8.3 L Hct 25.2 L MCV MCH MCHC RDW 18.3 H Plt Count Lymph % (Auto) [place] % (Auto) Lymph # [place] # Baso # Seg Neutrophils % Seg Neuts % (Manual) Lymphocytes % (Manual) Monocytes % (Manual) Eosinophils % (Manual) Basophils % (Manual) Nucleated RBC % Seg Neutrophils # Seg Neutrophils # Man Lymphocytes # (Manual) Monocytes # (Manual) Eosinophils # (Manual) Basophils # (Manual) PT INR Fibrinogen dRVVT Confirm Interp Factor V Activity POC ABG pH POC ABG pCO2 POC ABG pO2 ABG pO2 ABG HCO3 ABG Base Excess ABG Hemoglobin Oxyhemoglobin Sodium Potassium Chloride Carbon Dioxide BUN 92 H Creatinine 3.0 H Glucose 138 H POC Glucose 110 H Lactic Acid Calcium Ionized Calcium Phosphorus Magnesium Direct Bilirubin AST ALT Alkaline Phosphatase Lactate Dehydrogenase Troponin T C-Reactive Protein Total Protein Albumin Prealbumin Triglycerides Cholesterol LDL Cholesterol Direct HDL Cholesterol 25-OH Vitamin D Total PTH Intact Urine pH Urine WBC (Auto) Urine Creatinine Urine Total Protein Fluid Total Protein Vancomycin Trough Rheumatoid Factor Complement C4 Miscellaneous Test Crossmatch 10/16/16 10/16/16 10/16/16 11:27 11:48 17:36 WBC RBC Hgb Hct MCV MCH MCHC RDW Plt Count Lymph % (Auto) [place] % (Auto) Lymph # [place] # Baso # Seg Neutrophils % Seg Neuts % (Manual) Lymphocytes % (Manual) Monocytes % (Manual) Eosinophils % (Manual) Basophils % (Manual) Nucleated RBC % Seg Neutrophils # Seg Neutrophils # Man Lymphocytes # (Manual) Monocytes # (Manual) Eosinophils # (Manual) Basophils # (Manual) PT INR Fibrinogen dRVVT Confirm Interp Factor V Activity POC ABG pH 7.582 H POC ABG pCO2 27.4 L POC ABG pO2 110 H ABG pO2 ABG HCO3 ABG Base Excess ABG Hemoglobin Oxyhemoglobin Sodium Potassium Chloride Carbon Dioxide BUN Creatinine Glucose POC Glucose 121 H 133 H Lactic Acid Calcium Ionized Calcium Phosphorus Magnesium Direct Bilirubin AST ALT Alkaline Phosphatase Lactate Dehydrogenase Troponin T C-Reactive Protein Total Protein Albumin Prealbumin Triglycerides Cholesterol LDL Cholesterol Direct HDL Cholesterol 25-OH Vitamin D Total PTH Intact Urine pH Urine WBC (Auto) Urine Creatinine Urine Total Protein Fluid Total Protein Vancomycin Trough Rheumatoid Factor Complement C4 Miscellaneous Test Crossmatch 10/16/16 10/17/16 10/17/16 20:48 04:24 04:24 WBC 21.4 H RBC 2.72 L Hgb 8.0 L Hct 25.2 L MCV MCH MCHC RDW 18.0 H Plt Count Lymph % (Auto) [place] % (Auto) Lymph # [place] # Baso # Seg Neutrophils % Seg Neuts % (Manual) Lymphocytes % (Manual) Monocytes % (Manual) Eosinophils % (Manual) Basophils % (Manual) Nucleated RBC % Seg Neutrophils # Seg Neutrophils # Man Lymphocytes # (Manual) Monocytes # (Manual) Eosinophils # (Manual) Basophils # (Manual) PT INR Fibrinogen dRVVT Confirm Interp Factor V Activity POC ABG pH 7.561 H POC ABG pCO2 24.4 L POC ABG pO2 77 L ABG pO2 ABG HCO3 ABG Base Excess ABG Hemoglobin Oxyhemoglobin Sodium 148 H Potassium Chloride Carbon Dioxide BUN 104 H Creatinine 3.0 H Glucose 149 H POC Glucose Lactic Acid Calcium Ionized Calcium Phosphorus Magnesium Direct Bilirubin AST ALT Alkaline Phosphatase 138 H Lactate Dehydrogenase Troponin T C-Reactive Protein Total Protein 6.2 L Albumin 1.5 L Prealbumin Triglycerides Cholesterol LDL Cholesterol Direct HDL Cholesterol 25-OH Vitamin D Total PTH Intact Urine pH Urine WBC (Auto) Urine Creatinine Urine Total Protein Fluid Total Protein Vancomycin Trough Rheumatoid Factor Complement C4 Miscellaneous Test Crossmatch 10/17/16 10/17/1617 06:02 12:17 17:14 WBC RBC Hgb Hct MCV MCH MCHC RDW Plt Count Lymph % (Auto) [place] % (Auto) Lymph # [place] # Baso # Seg Neutrophils % Seg Neuts % (Manual) Lymphocytes % (Manual) Monocytes % (Manual) Eosinophils % (Manual) Basophils % (Manual) Nucleated RBC % Seg Neutrophils # Seg Neutrophils # Man Lymphocytes # (Manual) Monocytes # (Manual) Eosinophils # (Manual) Basophils # (Manual) PT INR Fibrinogen dRVVT Confirm Interp Factor V Activity POC ABG pH POC ABG pCO2 POC ABG pO2 ABG pO2 ABG HCO3 ABG Base Excess ABG Hemoglobin Oxyhemoglobin Sodium Potassium Chloride Carbon Dioxide BUN Creatinine Glucose POC Glucose 170 H 167 H 126 H Lactic Acid Calcium Ionized Calcium Phosphorus Magnesium Direct Bilirubin AST ALT Alkaline Phosphatase Lactate Dehydrogenase Troponin T C-Reactive Protein Total Protein Albumin Prealbumin Triglycerides Cholesterol LDL Cholesterol Direct HDL Cholesterol 25-OH Vitamin D Total PTH Intact Urine pH Urine WBC (Auto) Urine Creatinine Urine Total Protein Fluid Total Protein Vancomycin Trough Rheumatoid Factor Complement C4 Miscellaneous Test Crossmatch 10/17/16 10/18/16 10/18/16 23:17 04:00 04:00 WBC 20.7 H RBC 2.47 L Hgb 7.4 L Hct 22.9 L MCV MCH MCHC RDW 17.5 H Plt Count Lymph % (Auto) [place] % (Auto) Lymph # [place] # Baso # Seg Neutrophils % Seg Neuts % (Manual) Lymphocytes % (Manual) Monocytes % (Manual) Eosinophils % (Manual) Basophils % (Manual) Nucleated RBC % Seg Neutrophils # Seg Neutrophils # Man Lymphocytes # (Manual) Monocytes # (Manual) Eosinophils # (Manual) Basophils # (Manual) PT INR Fibrinogen dRVVT Confirm Interp Factor V Activity POC ABG pH POC ABG pCO2 POC ABG pO2 ABG pO2 ABG HCO3 ABG Base Excess ABG Hemoglobin Oxyhemoglobin Sodium 149 H Potassium Chloride 107.9 H Carbon Dioxide 20 L BUN 117 H Creatinine 3.2 H Glucose 119 H POC Glucose 121 H Lactic Acid Calcium Ionized Calcium Phosphorus Magnesium Direct Bilirubin AST ALT Alkaline Phosphatase Lactate Dehydrogenase Troponin T C-Reactive Protein Total Protein Albumin Prealbumin Triglycerides Cholesterol LDL Cholesterol Direct HDL Cholesterol 25-OH Vitamin D Total PTH Intact Urine pH Urine WBC (Auto) Urine Creatinine Urine Total Protein Fluid Total Protein Vancomycin Trough Rheumatoid Factor Complement C4 Miscellaneous Test Crossmatch 10/18/16 10/18/16 10/18/16 05:23 10:46 17:30 WBC RBC Hgb Hct MCV MCH MCHC RDW Plt Count Lymph % (Auto) [place] % (Auto) Lymph # [place] # Baso # Seg Neutrophils % Seg Neuts % (Manual) Lymphocytes % (Manual) Monocytes % (Manual) Eosinophils % (Manual) Basophils % (Manual) Nucleated RBC % Seg Neutrophils # Seg Neutrophils # Man Lymphocytes # (Manual) Monocytes # (Manual) Eosinophils # (Manual) Basophils # (Manual) PT INR Fibrinogen dRVVT Confirm Interp Factor V Activity POC ABG pH POC ABG pCO2 POC ABG pO2 ABG pO2 ABG HCO3 ABG Base Excess ABG Hemoglobin Oxyhemoglobin Sodium Potassium Chloride Carbon Dioxide BUN Creatinine Glucose POC Glucose 119 H 155 H 124 H Lactic Acid Calcium Ionized Calcium Phosphorus Magnesium Direct Bilirubin AST ALT Alkaline Phosphatase Lactate Dehydrogenase Troponin T C-Reactive Protein Total Protein Albumin Prealbumin Triglycerides Cholesterol LDL Cholesterol Direct HDL Cholesterol 25-OH Vitamin D Total PTH Intact Urine pH Urine WBC (Auto) Urine Creatinine Urine Total Protein Fluid Total Protein Vancomycin Trough Rheumatoid Factor Complement C4 Miscellaneous Test Crossmatch 10/19/16 10/19/16 10/19/16 04:00 04:00 05:25 WBC 17.4 H RBC 2.54 L Hgb 7.7 L Hct 23.6 L MCV MCH MCHC RDW 17.3 H Plt Count Lymph % (Auto) [place] % (Auto) Lymph # [place] # Baso # Seg Neutrophils % Seg Neuts % (Manual) Lymphocytes % (Manual) Monocytes % (Manual) Eosinophils % (Manual) Basophils % (Manual) Nucleated RBC % Seg Neutrophils # Seg Neutrophils # Man Lymphocytes # (Manual) Monocytes # (Manual) Eosinophils # (Manual) Basophils # (Manual) PT INR Fibrinogen dRVVT Confirm Interp Factor V Activity POC ABG pH POC ABG pCO2 POC ABG pO2 ABG pO2 ABG HCO3 ABG Base Excess ABG Hemoglobin Oxyhemoglobin Sodium Potassium Chloride Carbon Dioxide BUN 72 H Creatinine 2.1 H Glucose 116 H POC Glucose 119 H Lactic Acid Calcium Ionized Calcium Phosphorus Magnesium Direct Bilirubin AST ALT Alkaline Phosphatase Lactate Dehydrogenase Troponin T C-Reactive Protein Total Protein Albumin Prealbumin Triglycerides Cholesterol LDL Cholesterol Direct HDL Cholesterol 25-OH Vitamin D Total PTH Intact Urine pH Urine WBC (Auto) Urine Creatinine Urine Total Protein Fluid Total Protein Vancomycin Trough Rheumatoid Factor Complement C4 Miscellaneous Test Crossmatch 10/19/16 10/19/16 10/20/16 11:46 23:59 06:00 WBC RBC Hgb Hct MCV MCH MCHC RDW Plt Count Lymph % (Auto) [place] % (Auto) Lymph # [place] # Baso # Seg Neutrophils % Seg Neuts % (Manual) Lymphocytes % (Manual) Monocytes % (Manual) Eosinophils % (Manual) Basophils % (Manual) Nucleated RBC % Seg Neutrophils # Seg Neutrophils # Man Lymphocytes # (Manual) Monocytes # (Manual) Eosinophils # (Manual) Basophils # (Manual) PT INR Fibrinogen dRVVT Confirm Interp Factor V Activity POC ABG pH POC ABG pCO2 POC ABG pO2 ABG pO2 ABG HCO3 ABG Base Excess ABG Hemoglobin Oxyhemoglobin Sodium Potassium Chloride Carbon Dioxide 17 L BUN 94 H Creatinine 2.7 H Glucose POC Glucose 116 H 117 H Lactic Acid Calcium Ionized Calcium Phosphorus Magnesium Direct Bilirubin AST ALT Alkaline Phosphatase Lactate Dehydrogenase Troponin T C-Reactive Protein Total Protein Albumin Prealbumin Triglycerides Cholesterol LDL Cholesterol Direct HDL Cholesterol 25-OH Vitamin D Total PTH Intact Urine pH Urine WBC (Auto) Urine Creatinine Urine Total Protein Fluid Total Protein Vancomycin Trough Rheumatoid Factor Complement C4 Miscellaneous Test Crossmatch 10/20/16 10/20/16 10/20/16 06:00 11:49 16:00 WBC 19.7 H RBC 2.51 L Hgb 7.7 L Hct 23.5 L MCV MCH MCHC RDW 17.5 H Plt Count Lymph % (Auto) [place] % (Auto) Lymph # [place] # Baso # Seg Neutrophils % Seg Neuts % (Manual) Lymphocytes % (Manual) Monocytes % (Manual) Eosinophils % (Manual) Basophils % (Manual) Nucleated RBC % Seg Neutrophils # Seg Neutrophils # Man Lymphocytes # (Manual) Monocytes # (Manual) Eosinophils # (Manual) Basophils # (Manual) PT INR Fibrinogen dRVVT Confirm Interp Factor V Activity POC ABG pH POC ABG pCO2 POC ABG pO2 ABG pO2 ABG HCO3 ABG Base Excess ABG Hemoglobin Oxyhemoglobin Sodium Potassium Chloride Carbon Dioxide BUN Creatinine Glucose POC Glucose 117 H Lactic Acid Calcium Ionized Calcium Phosphorus Magnesium Direct Bilirubin AST ALT Alkaline Phosphatase Lactate Dehydrogenase Troponin T C-Reactive Protein Total Protein Albumin Prealbumin Triglycerides Cholesterol LDL Cholesterol Direct HDL Cholesterol 25-OH Vitamin D Total PTH Intact Urine pH Urine WBC (Auto) Urine Creatinine Urine Total Protein Fluid Total Protein Vancomycin Trough Rheumatoid Factor Complement C4 Miscellaneous Test Flexitest 1 H Crossmatch 10/20/16 10/20/16 10/21/16 18:36 23:39 04:00 WBC RBC Hgb Hct MCV MCH MCHC RDW Plt Count Lymph % (Auto) [place] % (Auto) Lymph # [place] # Baso # Seg Neutrophils % Seg Neuts % (Manual) Lymphocytes % (Manual) Monocytes % (Manual) Eosinophils % (Manual) Basophils % (Manual) Nucleated RBC % Seg Neutrophils # Seg Neutrophils # Man Lymphocytes # (Manual) Monocytes # (Manual) Eosinophils # (Manual) Basophils # (Manual) PT INR Fibrinogen dRVVT Confirm Interp Factor V Activity POC ABG pH POC ABG pCO2 POC ABG pO2 ABG pO2 ABG HCO3 ABG Base Excess ABG Hemoglobin Oxyhemoglobin Sodium Potassium 5.4 H D Chloride Carbon Dioxide 15 L BUN 110 H Creatinine 3.0 H Glucose POC Glucose 127 H 114 H Lactic Acid Calcium Ionized Calcium Phosphorus Magnesium Direct Bilirubin AST ALT Alkaline Phosphatase Lactate Dehydrogenase Troponin T C-Reactive Protein Total Protein Albumin Prealbumin Triglycerides Cholesterol LDL Cholesterol Direct HDL Cholesterol 25-OH Vitamin D Total PTH Intact Urine pH Urine WBC (Auto) Urine Creatinine Urine Total Protein Fluid Total Protein Vancomycin Trough Rheumatoid Factor Complement C4 Miscellaneous Test Crossmatch 10/21/16 10/21/16 10/22/16 05:54 23:46 05:18 WBC RBC Hgb Hct MCV MCH MCHC RDW Plt Count Lymph % (Auto) [place] % (Auto) Lymph # [place] # Baso # Seg Neutrophils % Seg Neuts % (Manual) Lymphocytes % (Manual) Monocytes % (Manual) Eosinophils % (Manual) Basophils % (Manual) Nucleated RBC % Seg Neutrophils # Seg Neutrophils # Man Lymphocytes # (Manual) Monocytes # (Manual) Eosinophils # (Manual) Basophils # (Manual) PT INR Fibrinogen dRVVT Confirm Interp Factor V Activity POC ABG pH POC ABG pCO2 POC ABG pO2 ABG pO2 ABG HCO3 ABG Base Excess ABG Hemoglobin Oxyhemoglobin Sodium Potassium Chloride Carbon Dioxide BUN Creatinine Glucose POC Glucose 119 H 108 H 109 H Lactic Acid Calcium Ionized Calcium Phosphorus Magnesium Direct Bilirubin AST ALT Alkaline Phosphatase Lactate Dehydrogenase Troponin T C-Reactive Protein Total Protein Albumin Prealbumin Triglycerides Cholesterol LDL Cholesterol Direct HDL Cholesterol 25-OH Vitamin D Total PTH Intact Urine pH Urine WBC (Auto) Urine Creatinine Urine Total Protein Fluid Total Protein Vancomycin Trough Rheumatoid Factor Complement C4 Miscellaneous Test Crossmatch 10/22/16 10/22/16 10/22/16 06:40 06:40 06:40 WBC 14.0 H RBC 2.03 L Hgb 7.0 L Hct 20.5 L MCV 98 H MCH 34 H MCHC 35 H RDW 17.8 H Plt Count Lymph % (Auto) [place] % (Auto) 9.9 H Lymph # [place] # 1.4 H Baso # 0.2 H Seg Neutrophils % 72.0 H Seg Neuts % (Manual) Lymphocytes % (Manual) Monocytes % (Manual) Eosinophils % (Manual) Basophils % (Manual) Nucleated RBC % Seg Neutrophils # 10.0 H Seg Neutrophils # Man Lymphocytes # (Manual) Monocytes # (Manual) Eosinophils # (Manual) Basophils # (Manual) PT INR Fibrinogen dRVVT Confirm Interp Factor V Activity POC ABG pH POC ABG pCO2 POC ABG pO2 ABG pO2 ABG HCO3 ABG Base Excess ABG Hemoglobin Oxyhemoglobin Sodium 130 L D Potassium Chloride 92.4 L Carbon Dioxide 20 L BUN 50 H Creatinine 1.6 H Glucose 589 H* POC Glucose Lactic Acid Calcium 7.8 L D Ionized Calcium Phosphorus Magnesium 1.60 L Direct Bilirubin AST ALT Alkaline Phosphatase Lactate Dehydrogenase Troponin T C-Reactive Protein Total Protein Albumin Prealbumin Triglycerides Cholesterol LDL Cholesterol Direct HDL Cholesterol 25-OH Vitamin D Total PTH Intact Urine pH Urine WBC (Auto) Urine Creatinine Urine Total Protein Fluid Total Protein Vancomycin Trough Rheumatoid Factor Complement C4 Miscellaneous Test Crossmatch 10/22/16 10/22/16 10/22/16 11:39 16:44 23:36 WBC RBC Hgb Hct MCV MCH MCHC RDW Plt Count Lymph % (Auto) [place] % (Auto) Lymph # [place] # Baso # Seg Neutrophils % Seg Neuts % (Manual) Lymphocytes % (Manual) Monocytes % (Manual) Eosinophils % (Manual) Basophils % (Manual) Nucleated RBC % Seg Neutrophils # Seg Neutrophils # Man Lymphocytes # (Manual) Monocytes # (Manual) Eosinophils # (Manual) Basophils # (Manual) PT INR Fibrinogen dRVVT Confirm Interp Factor V Activity POC ABG pH POC ABG pCO2 POC ABG pO2 ABG pO2 ABG HCO3 ABG Base Excess ABG Hemoglobin Oxyhemoglobin Sodium Potassium Chloride Carbon Dioxide BUN Creatinine Glucose POC Glucose 142 H 163 H 123 H Lactic Acid Calcium Ionized Calcium Phosphorus Magnesium Direct Bilirubin AST ALT Alkaline Phosphatase Lactate Dehydrogenase Troponin T C-Reactive Protein Total Protein Albumin Prealbumin Triglycerides Cholesterol LDL Cholesterol Direct HDL Cholesterol 25-OH Vitamin D Total PTH Intact Urine pH Urine WBC (Auto) Urine Creatinine Urine Total Protein Fluid Total Protein Vancomycin Trough Rheumatoid Factor Complement C4 Miscellaneous Test Crossmatch 10/23/16 10/23/16 10/23/16 04:58 06:00 12:12 WBC RBC Hgb Hct MCV MCH MCHC RDW Plt Count Lymph % (Auto) [place] % (Auto) Lymph # [place] # Baso # Seg Neutrophils % Seg Neuts % (Manual) Lymphocytes % (Manual) Monocytes % (Manual) Eosinophils % (Manual) Basophils % (Manual) Nucleated RBC % Seg Neutrophils # Seg Neutrophils # Man Lymphocytes # (Manual) Monocytes # (Manual) Eosinophils # (Manual) Basophils # (Manual) PT INR Fibrinogen dRVVT Confirm Interp Factor V Activity POC ABG pH POC ABG pCO2 POC ABG pO2 ABG pO2 ABG HCO3 ABG Base Excess ABG Hemoglobin Oxyhemoglobin Sodium 133 L Potassium 3.5 L Chloride 96.1 L Carbon Dioxide 18 L BUN 76 H Creatinine 2.1 H Glucose POC Glucose 133 H 138 H Lactic Acid Calcium 8.3 L Ionized Calcium Phosphorus Magnesium Direct Bilirubin AST ALT Alkaline Phosphatase Lactate Dehydrogenase Troponin T C-Reactive Protein Total Protein Albumin Prealbumin Triglycerides Cholesterol LDL Cholesterol Direct HDL Cholesterol 25-OH Vitamin D Total PTH Intact Urine pH Urine WBC (Auto) Urine Creatinine Urine Total Protein Fluid Total Protein Vancomycin Trough Rheumatoid Factor Complement C4 Miscellaneous Test Crossmatch 10/23/16 10/23/16 10/24/16 16:53 23:37 04:00 WBC RBC Hgb Hct MCV MCH MCHC RDW Plt Count Lymph % (Auto) [place] % (Auto) Lymph # [place] # Baso # Seg Neutrophils % Seg Neuts % (Manual) Lymphocytes % (Manual) Monocytes % (Manual) Eosinophils % (Manual) Basophils % (Manual) Nucleated RBC % Seg Neutrophils # Seg Neutrophils # Man Lymphocytes # (Manual) Monocytes # (Manual) Eosinophils # (Manual) Basophils # (Manual) PT INR Fibrinogen dRVVT Confirm Interp Factor V Activity POC ABG pH POC ABG pCO2 POC ABG pO2 ABG pO2 ABG HCO3 ABG Base Excess ABG Hemoglobin Oxyhemoglobin Sodium 131 L Potassium Chloride 94.5 L Carbon Dioxide 19 L BUN 97 H Creatinine 2.6 H Glucose 110 H POC Glucose 125 H 123 H Lactic Acid Calcium 8.3 L Ionized Calcium Phosphorus Magnesium Direct Bilirubin AST ALT Alkaline Phosphatase Lactate Dehydrogenase Troponin T C-Reactive Protein Total Protein Albumin Prealbumin Triglycerides Cholesterol LDL Cholesterol Direct HDL Cholesterol 25-OH Vitamin D Total PTH Intact Urine pH Urine WBC (Auto) Urine Creatinine Urine Total Protein Fluid Total Protein Vancomycin Trough Rheumatoid Factor Complement C4 Miscellaneous Test Crossmatch 10/24/16 10/24/16 10/24/16 07:49 11:39 17:52 WBC RBC Hgb 6.0 L Hct 19.7 L* MCV MCH MCHC RDW Plt Count Lymph % (Auto) [place] % (Auto) Lymph # [place] # Baso # Seg Neutrophils % Seg Neuts % (Manual) Lymphocytes % (Manual) Monocytes % (Manual) Eosinophils % (Manual) Basophils % (Manual) Nucleated RBC % Seg Neutrophils # Seg Neutrophils # Man Lymphocytes # (Manual) Monocytes # (Manual) Eosinophils # (Manual) Basophils # (Manual) PT INR Fibrinogen dRVVT Confirm Interp Factor V Activity POC ABG pH POC ABG pCO2 POC ABG pO2 ABG pO2 ABG HCO3 ABG Base Excess ABG Hemoglobin Oxyhemoglobin Sodium Potassium Chloride Carbon Dioxide BUN Creatinine Glucose POC Glucose 106 H 158 H Lactic Acid Calcium Ionized Calcium Phosphorus Magnesium Direct Bilirubin AST ALT Alkaline Phosphatase Lactate Dehydrogenase Troponin T C-Reactive Protein Total Protein Albumin Prealbumin Triglycerides Cholesterol LDL Cholesterol Direct HDL Cholesterol 25-OH Vitamin D Total PTH Intact Urine pH Urine WBC (Auto) Urine Creatinine Urine Total Protein Fluid Total Protein Vancomycin Trough Rheumatoid Factor Complement C4 Miscellaneous Test Crossmatch 10/24/16 10/24/16 10/24/16 20:00 22:27 Unknown WBC RBC Hgb 9.4 L D Hct 27.5 L D MCV MCH MCHC RDW Plt Count Lymph % (Auto) [place] % (Auto) Lymph # [place] # Baso # Seg Neutrophils % Seg Neuts % (Manual) Lymphocytes % (Manual) Monocytes % (Manual) Eosinophils % (Manual) Basophils % (Manual) Nucleated RBC % Seg Neutrophils # Seg Neutrophils # Man Lymphocytes # (Manual) Monocytes # (Manual) Eosinophils # (Manual) Basophils # (Manual) PT INR Fibrinogen dRVVT Confirm Interp Factor V Activity POC ABG pH POC ABG pCO2 POC ABG pO2 ABG pO2 ABG HCO3 ABG Base Excess ABG Hemoglobin Oxyhemoglobin Sodium Potassium Chloride Carbon Dioxide BUN Creatinine Glucose POC Glucose 125 H Lactic Acid Calcium Ionized Calcium Phosphorus Magnesium Direct Bilirubin AST ALT Alkaline Phosphatase Lactate Dehydrogenase Troponin T C-Reactive Protein Total Protein Albumin Prealbumin Triglycerides Cholesterol LDL Cholesterol Direct HDL Cholesterol 25-OH Vitamin D Total PTH Intact Urine pH Urine WBC (Auto) Urine Creatinine Urine Total Protein Fluid Total Protein Vancomycin Trough Rheumatoid Factor Complement C4 Miscellaneous Test Crossmatch See Detail 10/25/16 10/25/16 10/25/16 04:00 04:00 04:00 WBC 14.2 H RBC 2.98 L Hgb 9.0 L Hct 26.2 L MCV MCH MCHC RDW 16.6 H Plt Count Lymph % (Auto) [place] % (Auto) 10.7 H Lymph # [place] # 1.5 H Baso # Seg Neutrophils % 73.6 H Seg Neuts % (Manual) Lymphocytes % (Manual) Monocytes % (Manual) Eosinophils % (Manual) Basophils % (Manual) Nucleated RBC % Seg Neutrophils # 10.5 H Seg Neutrophils # Man Lymphocytes # (Manual) Monocytes # (Manual) Eosinophils # (Manual) Basophils # (Manual) PT INR Fibrinogen dRVVT Confirm Interp Factor V Activity POC ABG pH POC ABG pCO2 POC ABG pO2 ABG pO2 ABG HCO3 ABG Base Excess ABG Hemoglobin Oxyhemoglobin Sodium 132 L Potassium Chloride 94.7 L Carbon Dioxide BUN 51 H Creatinine 1.6 H Glucose 130 H POC Glucose Lactic Acid Calcium 8.3 L Ionized Calcium Phosphorus 1.60 L D Magnesium Direct Bilirubin AST ALT Alkaline Phosphatase Lactate Dehydrogenase Troponin T C-Reactive Protein Total Protein Albumin Prealbumin Triglycerides Cholesterol LDL Cholesterol Direct HDL Cholesterol 25-OH Vitamin D Total PTH Intact Urine pH Urine WBC (Auto) Urine Creatinine Urine Total Protein Fluid Total Protein Vancomycin Trough Rheumatoid Factor Complement C4 Miscellaneous Test Crossmatch 10/25/16 10/25/16 10/25/16 04:32 11:48 17:22 WBC RBC Hgb Hct MCV MCH MCHC RDW Plt Count Lymph % (Auto) [place] % (Auto) Lymph # [place] # Baso # Seg Neutrophils % Seg Neuts % (Manual) Lymphocytes % (Manual) Monocytes % (Manual) Eosinophils % (Manual) Basophils % (Manual) Nucleated RBC % Seg Neutrophils # Seg Neutrophils # Man Lymphocytes # (Manual) Monocytes # (Manual) Eosinophils # (Manual) Basophils # (Manual) PT INR Fibrinogen dRVVT Confirm Interp Factor V Activity POC ABG pH POC ABG pCO2 POC ABG pO2 ABG pO2 ABG HCO3 ABG Base Excess ABG Hemoglobin Oxyhemoglobin Sodium Potassium Chloride Carbon Dioxide BUN Creatinine Glucose POC Glucose 124 H 171 H 120 H Lactic Acid Calcium Ionized Calcium Phosphorus Magnesium Direct Bilirubin AST ALT Alkaline Phosphatase Lactate Dehydrogenase Troponin T C-Reactive Protein Total Protein Albumin Prealbumin Triglycerides Cholesterol LDL Cholesterol Direct HDL Cholesterol 25-OH Vitamin D Total PTH Intact Urine pH Urine WBC (Auto) Urine Creatinine Urine Total Protein Fluid Total Protein Vancomycin Trough Rheumatoid Factor Complement C4 Miscellaneous Test Crossmatch 10/26/16 10/26/16 10/26/16 04:54 07:06 07:06 WBC 16.9 H RBC 3.06 L Hgb 9.1 L Hct 26.9 L MCV MCH MCHC RDW 16.9 H Plt Count Lymph % (Auto) [place] % (Auto) Lymph # [place] # Baso # Seg Neutrophils % Seg Neuts % (Manual) 71.0 H Lymphocytes % (Manual) 5.0 L Monocytes % (Manual) 12.0 H Eosinophils % (Manual) Basophils % (Manual) Nucleated RBC % Seg Neutrophils # Seg Neutrophils # Man 12.0 H Lymphocytes # (Manual) 0.8 L Monocytes # (Manual) 2.0 H Eosinophils # (Manual) Basophils # (Manual) PT INR Fibrinogen dRVVT Confirm Interp Factor V Activity POC ABG pH POC ABG pCO2 POC ABG pO2 ABG pO2 ABG HCO3 ABG Base Excess ABG Hemoglobin Oxyhemoglobin Sodium 135 L Potassium Chloride 97.1 L Carbon Dioxide BUN 73 H Creatinine 2.2 H Glucose 117 H POC Glucose 123 H Lactic Acid Calcium Ionized Calcium Phosphorus 1.70 L Magnesium Direct Bilirubin AST ALT Alkaline Phosphatase Lactate Dehydrogenase Troponin T C-Reactive Protein Total Protein Albumin Prealbumin Triglycerides Cholesterol LDL Cholesterol Direct HDL Cholesterol 25-OH Vitamin D Total PTH Intact Urine pH Urine WBC (Auto) Urine Creatinine Urine Total Protein Fluid Total Protein Vancomycin Trough Rheumatoid Factor Complement C4 Miscellaneous Test Crossmatch 10/26/16 10/26/16 10/26/16 12:12 17:29 23:42 WBC RBC Hgb Hct MCV MCH MCHC RDW Plt Count Lymph % (Auto) [place] % (Auto) Lymph # [place] # Baso # Seg Neutrophils % Seg Neuts % (Manual) Lymphocytes % (Manual) Monocytes % (Manual) Eosinophils % (Manual) Basophils % (Manual) Nucleated RBC % Seg Neutrophils # Seg Neutrophils # Man Lymphocytes # (Manual) Monocytes # (Manual) Eosinophils # (Manual) Basophils # (Manual) PT INR Fibrinogen dRVVT Confirm Interp Factor V Activity POC ABG pH POC ABG pCO2 POC ABG pO2 ABG pO2 ABG HCO3 ABG Base Excess ABG Hemoglobin Oxyhemoglobin Sodium Potassium Chloride Carbon Dioxide BUN Creatinine Glucose POC Glucose 126 H 161 H 118 H Lactic Acid Calcium Ionized Calcium Phosphorus Magnesium Direct Bilirubin AST ALT Alkaline Phosphatase Lactate Dehydrogenase Troponin T C-Reactive Protein Total Protein Albumin Prealbumin Triglycerides Cholesterol LDL Cholesterol Direct HDL Cholesterol 25-OH Vitamin D Total PTH Intact Urine pH Urine WBC (Auto) Urine Creatinine Urine Total Protein Fluid Total Protein Vancomycin Trough Rheumatoid Factor Complement C4 Miscellaneous Test Crossmatch 10/27/16 10/27/16 10/27/16 05:03 06:30 06:30 WBC 13.9 H RBC 3.09 L Hgb 9.2 L Hct 27.5 L MCV MCH MCHC RDW 17.0 H Plt Count Lymph % (Auto) [place] % (Auto) Lymph # [place] # Baso # Seg Neutrophils % Seg Neuts % (Manual) 78.0 H Lymphocytes % (Manual) Monocytes % (Manual) Eosinophils % (Manual) Basophils % (Manual) Nucleated RBC % 2.0 H Seg Neutrophils # Seg Neutrophils # Man 10.8 H Lymphocytes # (Manual) Monocytes # (Manual) 1.0 H Eosinophils # (Manual) Basophils # (Manual) PT INR Fibrinogen dRVVT Confirm Interp Factor V Activity POC ABG pH POC ABG pCO2 POC ABG pO2 ABG pO2 ABG HCO3 ABG Base Excess ABG Hemoglobin Oxyhemoglobin Sodium Potassium Chloride Carbon Dioxide BUN 40 H Creatinine 1.5 H Glucose 135 H POC Glucose 107 H Lactic Acid Calcium 8.3 L Ionized Calcium Phosphorus 1.30 L D Magnesium Direct Bilirubin AST ALT Alkaline Phosphatase Lactate Dehydrogenase Troponin T C-Reactive Protein Total Protein Albumin Prealbumin Triglycerides Cholesterol LDL Cholesterol Direct HDL Cholesterol 25-OH Vitamin D Total PTH Intact Urine pH Urine WBC (Auto) Urine Creatinine Urine Total Protein Fluid Total Protein Vancomycin Trough Rheumatoid Factor Complement C4 Miscellaneous Test Crossmatch 10/27/16 10/27/16 10/27/16 13:27 18:07 23:40 WBC RBC Hgb Hct MCV MCH MCHC RDW Plt Count Lymph % (Auto) [place] % (Auto) Lymph # [place] # Baso # Seg Neutrophils % Seg Neuts % (Manual) Lymphocytes % (Manual) Monocytes % (Manual) Eosinophils % (Manual) Basophils % (Manual) Nucleated RBC % Seg Neutrophils # Seg Neutrophils # Man Lymphocytes # (Manual) Monocytes # (Manual) Eosinophils # (Manual) Basophils # (Manual) PT INR Fibrinogen dRVVT Confirm Interp Factor V Activity POC ABG pH POC ABG pCO2 POC ABG pO2 ABG pO2 ABG HCO3 ABG Base Excess ABG Hemoglobin Oxyhemoglobin Sodium Potassium Chloride Carbon Dioxide BUN Creatinine Glucose POC Glucose 117 H 121 H 118 H Lactic Acid Calcium Ionized Calcium Phosphorus Magnesium Direct Bilirubin AST ALT Alkaline Phosphatase Lactate Dehydrogenase Troponin T C-Reactive Protein Total Protein Albumin Prealbumin Triglycerides Cholesterol LDL Cholesterol Direct HDL Cholesterol 25-OH Vitamin D Total PTH Intact Urine pH Urine WBC (Auto) Urine Creatinine Urine Total Protein Fluid Total Protein Vancomycin Trough Rheumatoid Factor Complement C4 Miscellaneous Test Crossmatch 10/28/16 10/28/16 10/28/16 05:48 06:45 06:45 WBC 14.7 H RBC 3.05 L Hgb 9.0 L Hct 26.9 L MCV MCH MCHC RDW 16.8 H Plt Count Lymph % (Auto) 8.2 L [place] % (Auto) 8.4 H Lymph # [place] # 1.2 H Baso # Seg Neutrophils % 81.9 H Seg Neuts % (Manual) Lymphocytes % (Manual) Monocytes % (Manual) Eosinophils % (Manual) Basophils % (Manual) Nucleated RBC % Seg Neutrophils # 12.1 H Seg Neutrophils # Man Lymphocytes # (Manual) Monocytes # (Manual) Eosinophils # (Manual) Basophils # (Manual) PT INR Fibrinogen dRVVT Confirm Interp Factor V Activity POC ABG pH POC ABG pCO2 POC ABG pO2 ABG pO2 ABG HCO3 ABG Base Excess ABG Hemoglobin Oxyhemoglobin Sodium Potassium Chloride Carbon Dioxide BUN 60 H Creatinine 1.9 H Glucose 120 H POC Glucose 114 H Lactic Acid Calcium Ionized Calcium Phosphorus Magnesium Direct Bilirubin AST ALT Alkaline Phosphatase Lactate Dehydrogenase Troponin T C-Reactive Protein Total Protein Albumin Prealbumin Triglycerides Cholesterol LDL Cholesterol Direct HDL Cholesterol 25-OH Vitamin D Total PTH Intact Urine pH Urine WBC (Auto) Urine Creatinine Urine Total Protein Fluid Total Protein Vancomycin Trough Rheumatoid Factor Complement C4 Miscellaneous Test Crossmatch 10/28/16 10/28/16 10/29/16 17:08 23:50 05:10 WBC RBC Hgb Hct MCV MCH MCHC RDW Plt Count Lymph % (Auto) [place] % (Auto) Lymph # [place] # Baso # Seg Neutrophils % Seg Neuts % (Manual) Lymphocytes % (Manual) Monocytes % (Manual) Eosinophils % (Manual) Basophils % (Manual) Nucleated RBC % Seg Neutrophils # Seg Neutrophils # Man Lymphocytes # (Manual) Monocytes # (Manual) Eosinophils # (Manual) Basophils # (Manual) PT INR Fibrinogen dRVVT Confirm Interp Factor V Activity POC ABG pH POC ABG pCO2 POC ABG pO2 ABG pO2 ABG HCO3 ABG Base Excess ABG Hemoglobin Oxyhemoglobin Sodium Potassium Chloride Carbon Dioxide BUN Creatinine Glucose POC Glucose 109 H 110 H 124 H Lactic Acid Calcium Ionized Calcium Phosphorus Magnesium Direct Bilirubin AST ALT Alkaline Phosphatase Lactate Dehydrogenase Troponin T C-Reactive Protein Total Protein Albumin Prealbumin Triglycerides Cholesterol LDL Cholesterol Direct HDL Cholesterol 25-OH Vitamin D Total PTH Intact Urine pH Urine WBC (Auto) Urine Creatinine Urine Total Protein Fluid Total Protein Vancomycin Trough Rheumatoid Factor Complement C4 Miscellaneous Test Crossmatch 10/29/16 10/29/16 10/29/16 07:45 07:45 12:19 WBC 14.7 H RBC 3.15 L Hgb 9.3 L Hct 28.9 L MCV MCH MCHC RDW 17.0 H Plt Count Lymph % (Auto) 11.9 L [place] % (Auto) 8.6 H Lymph # [place] # 1.3 H Baso # Seg Neutrophils % 78.1 H Seg Neuts % (Manual) Lymphocytes % (Manual) Monocytes % (Manual) Eosinophils % (Manual) Basophils % (Manual) Nucleated RBC % Seg Neutrophils # 11.4 H Seg Neutrophils # Man Lymphocytes # (Manual) Monocytes # (Manual) Eosinophils # (Manual) Basophils # (Manual) PT INR Fibrinogen dRVVT Confirm Interp Factor V Activity POC ABG pH POC ABG pCO2 POC ABG pO2 ABG pO2 ABG HCO3 ABG Base Excess ABG Hemoglobin Oxyhemoglobin Sodium Potassium 5.1 H Chloride Carbon Dioxide 19 L BUN 78 H Creatinine 2.2 H Glucose 116 H POC Glucose 118 H Lactic Acid Calcium Ionized Calcium Phosphorus Magnesium Direct Bilirubin AST ALT Alkaline Phosphatase Lactate Dehydrogenase Troponin T C-Reactive Protein Total Protein Albumin Prealbumin Triglycerides Cholesterol LDL Cholesterol Direct HDL Cholesterol 25-OH Vitamin D Total PTH Intact Urine pH Urine WBC (Auto) Urine Creatinine Urine Total Protein Fluid Total Protein Vancomycin Trough Rheumatoid Factor Complement C4 Miscellaneous Test Crossmatch 10/29/16 10/30/16 10/30/16 17:49 01:52 03:28 WBC RBC Hgb Hct MCV MCH MCHC RDW Plt Count Lymph % (Auto) [place] % (Auto) Lymph # [place] # Baso # Seg Neutrophils % Seg Neuts % (Manual) Lymphocytes % (Manual) Monocytes % (Manual) Eosinophils % (Manual) Basophils % (Manual) Nucleated RBC % Seg Neutrophils # Seg Neutrophils # Man Lymphocytes # (Manual) Monocytes # (Manual) Eosinophils # (Manual) Basophils # (Manual) PT INR Fibrinogen dRVVT Confirm Interp Factor V Activity POC ABG pH POC ABG pCO2 POC ABG pO2 ABG pO2 ABG HCO3 ABG Base Excess ABG Hemoglobin Oxyhemoglobin Sodium Potassium 5.4 H Chloride 97.5 L Carbon Dioxide 19 L BUN 90 H Creatinine 2.5 H Glucose POC Glucose 120 H 129 H Lactic Acid Calcium Ionized Calcium Phosphorus 5.20 H Magnesium Direct Bilirubin AST ALT Alkaline Phosphatase Lactate Dehydrogenase Troponin T C-Reactive Protein Total Protein Albumin Prealbumin Triglycerides Cholesterol LDL Cholesterol Direct HDL Cholesterol 25-OH Vitamin D Total PTH Intact Urine pH Urine WBC (Auto) Urine Creatinine Urine Total Protein Fluid Total Protein Vancomycin Trough Rheumatoid Factor Complement C4 Miscellaneous Test Crossmatch 10/30/16 10/30/16 10/30/16 03:28 08:19 08:19 WBC 11.6 H 15.9 H RBC 2.75 L 2.82 L Hgb 7.9 L 8.3 L Hct 24.2 L 25.2 L MCV MCH MCHC RDW 16.7 H 17.2 H Plt Count Lymph % (Auto) [place] % (Auto) 9.8 H Lymph # [place] # 1.1 H Baso # Seg Neutrophils % 74.2 H Seg Neuts % (Manual) Lymphocytes % (Manual) Monocytes % (Manual) Eosinophils % (Manual) Basophils % (Manual) Nucleated RBC % Seg Neutrophils # 8.6 H Seg Neutrophils # Man Lymphocytes # (Manual) Monocytes # (Manual) Eosinophils # (Manual) Basophils # (Manual) PT INR Fibrinogen dRVVT Confirm Interp Factor V Activity POC ABG pH POC ABG pCO2 POC ABG pO2 ABG pO2 ABG HCO3 ABG Base Excess ABG Hemoglobin Oxyhemoglobin Sodium Potassium 5.3 H Chloride 97.4 L Carbon Dioxide 19 L BUN 93 H Creatinine 2.6 H Glucose POC Glucose Lactic Acid Calcium Ionized Calcium Phosphorus Magnesium Direct Bilirubin AST ALT Alkaline Phosphatase Lactate Dehydrogenase Troponin T C-Reactive Protein Total Protein Albumin Prealbumin Triglycerides Cholesterol LDL Cholesterol Direct HDL Cholesterol 25-OH Vitamin D Total PTH Intact Urine pH Urine WBC (Auto) Urine Creatinine Urine Total Protein Fluid Total Protein Vancomycin Trough Rheumatoid Factor Complement C4 Miscellaneous Test Crossmatch 10/30/16 10/30/16 10/31/16 17:11 23:56 00:40 WBC RBC Hgb Hct MCV MCH MCHC RDW Plt Count Lymph % (Auto) [place] % (Auto) Lymph # [place] # Baso # Seg Neutrophils % Seg Neuts % (Manual) Lymphocytes % (Manual) Monocytes % (Manual) Eosinophils % (Manual) Basophils % (Manual) Nucleated RBC % Seg Neutrophils # Seg Neutrophils # Man Lymphocytes # (Manual) Monocytes # (Manual) Eosinophils # (Manual) Basophils # (Manual) PT INR Fibrinogen dRVVT Confirm Interp Factor V Activity POC ABG pH POC ABG pCO2 POC ABG pO2 ABG pO2 ABG HCO3 ABG Base Excess ABG Hemoglobin Oxyhemoglobin Sodium Potassium Chloride Carbon Dioxide BUN Creatinine Glucose POC Glucose 106 H 117 H 120 H Lactic Acid Calcium Ionized Calcium Phosphorus Magnesium Direct Bilirubin AST ALT Alkaline Phosphatase Lactate Dehydrogenase Troponin T C-Reactive Protein Total Protein Albumin Prealbumin Triglycerides Cholesterol LDL Cholesterol Direct HDL Cholesterol 25-OH Vitamin D Total PTH Intact Urine pH Urine WBC (Auto) Urine Creatinine Urine Total Protein Fluid Total Protein Vancomycin Trough Rheumatoid Factor Complement C4 Miscellaneous Test Crossmatch 10/31/16 10/31/16 10/31/16 05:43 07:15 07:15 WBC 12.1 H RBC 2.63 L Hgb 7.7 L Hct 23.3 L MCV MCH MCHC RDW 16.7 H Plt Count Lymph % (Auto) 11.7 L [place] % (Auto) 7.7 H Lymph # [place] # 0.9 H Baso # Seg Neutrophils % 78.0 H Seg Neuts % (Manual) Lymphocytes % (Manual) Monocytes % (Manual) Eosinophils % (Manual) Basophils % (Manual) Nucleated RBC % Seg Neutrophils # 9.4 H Seg Neutrophils # Man Lymphocytes # (Manual) Monocytes # (Manual) Eosinophils # (Manual) Basophils # (Manual) PT INR Fibrinogen dRVVT Confirm Interp Factor V Activity POC ABG pH POC ABG pCO2 POC ABG pO2 ABG pO2 ABG HCO3 ABG Base Excess ABG Hemoglobin Oxyhemoglobin Sodium Potassium Chloride 96.4 L Carbon Dioxide 21 L BUN 99 H Creatinine 2.6 H Glucose 144 H POC Glucose 125 H Lactic Acid Calcium Ionized Calcium Phosphorus 4.80 H Magnesium Direct Bilirubin AST ALT Alkaline Phosphatase Lactate Dehydrogenase Troponin T C-Reactive Protein Total Protein Albumin Prealbumin Triglycerides Cholesterol LDL Cholesterol Direct HDL Cholesterol 25-OH Vitamin D Total PTH Intact Urine pH Urine WBC (Auto) Urine Creatinine Urine Total Protein Fluid Total Protein Vancomycin Trough Rheumatoid Factor Complement C4 Miscellaneous Test Crossmatch 10/31/16 10/31/16 11/01/16 11:46 18:34 00:20 WBC RBC Hgb Hct MCV MCH MCHC RDW Plt Count Lymph % (Auto) [place] % (Auto) Lymph # [place] # Baso # Seg Neutrophils % Seg Neuts % (Manual) Lymphocytes % (Manual) Monocytes % (Manual) Eosinophils % (Manual) Basophils % (Manual) Nucleated RBC % Seg Neutrophils # Seg Neutrophils # Man Lymphocytes # (Manual) Monocytes # (Manual) Eosinophils # (Manual) Basophils # (Manual) PT INR Fibrinogen dRVVT Confirm Interp Factor V Activity POC ABG pH POC ABG pCO2 POC ABG pO2 ABG pO2 ABG HCO3 ABG Base Excess ABG Hemoglobin Oxyhemoglobin Sodium Potassium Chloride Carbon Dioxide BUN Creatinine Glucose POC Glucose 159 H 140 H 132 H Lactic Acid Calcium Ionized Calcium Phosphorus Magnesium Direct Bilirubin AST ALT Alkaline Phosphatase Lactate Dehydrogenase Troponin T C-Reactive Protein Total Protein Albumin Prealbumin Triglycerides Cholesterol LDL Cholesterol Direct HDL Cholesterol 25-OH Vitamin D Total PTH Intact Urine pH Urine WBC (Auto) Urine Creatinine Urine Total Protein Fluid Total Protein Vancomycin Trough Rheumatoid Factor Complement C4 Miscellaneous Test Crossmatch 11/01/16 11/01/16 11/01/16 04:55 04:55 06:11 WBC 11.2 H RBC 2.68 L Hgb 7.5 L Hct 23.7 L MCV MCH MCHC RDW 16.1 H Plt Count Lymph % (Auto) [place] % (Auto) 9.8 H Lymph # [place] # 1.1 H Baso # Seg Neutrophils % 70.8 H Seg Neuts % (Manual) Lymphocytes % (Manual) Monocytes % (Manual) Eosinophils % (Manual) Basophils % (Manual) Nucleated RBC % Seg Neutrophils # 7.9 H Seg Neutrophils # Man Lymphocytes # (Manual) Monocytes # (Manual) Eosinophils # (Manual) Basophils # (Manual) PT INR Fibrinogen dRVVT Confirm Interp Factor V Activity POC ABG pH POC ABG pCO2 POC ABG pO2 ABG pO2 ABG HCO3 ABG Base Excess ABG Hemoglobin Oxyhemoglobin Sodium Potassium 3.3 L D Chloride Carbon Dioxide BUN 61 H Creatinine 1.9 H Glucose 114 H POC Glucose 115 H Lactic Acid Calcium Ionized Calcium Phosphorus 1.80 L D Magnesium Direct Bilirubin AST ALT Alkaline Phosphatase Lactate Dehydrogenase Troponin T C-Reactive Protein Total Protein Albumin Prealbumin Triglycerides Cholesterol LDL Cholesterol Direct HDL Cholesterol 25-OH Vitamin D Total PTH Intact Urine pH Urine WBC (Auto) Urine Creatinine Urine Total Protein Fluid Total Protein Vancomycin Trough Rheumatoid Factor Complement C4 Miscellaneous Test Crossmatch 11/01/16 11/01/16 11/01/16 12:29 18:23 23:58 WBC RBC Hgb Hct MCV MCH MCHC RDW Plt Count Lymph % (Auto) [place] % (Auto) Lymph # [place] # Baso # Seg Neutrophils % Seg Neuts % (Manual) Lymphocytes % (Manual) Monocytes % (Manual) Eosinophils % (Manual) Basophils % (Manual) Nucleated RBC % Seg Neutrophils # Seg Neutrophils # Man Lymphocytes # (Manual) Monocytes # (Manual) Eosinophils # (Manual) Basophils # (Manual) PT INR Fibrinogen dRVVT Confirm Interp Factor V Activity POC ABG pH POC ABG pCO2 POC ABG pO2 ABG pO2 ABG HCO3 ABG Base Excess ABG Hemoglobin Oxyhemoglobin Sodium Potassium Chloride Carbon Dioxide BUN Creatinine Glucose POC Glucose 142 H 143 H 128 H Lactic Acid Calcium Ionized Calcium Phosphorus Magnesium Direct Bilirubin AST ALT Alkaline Phosphatase Lactate Dehydrogenase Troponin T C-Reactive Protein Total Protein Albumin Prealbumin Triglycerides Cholesterol LDL Cholesterol Direct HDL Cholesterol 25-OH Vitamin D Total PTH Intact Urine pH Urine WBC (Auto) Urine Creatinine Urine Total Protein Fluid Total Protein Vancomycin Trough Rheumatoid Factor Complement C4 Miscellaneous Test Crossmatch 11/02/16 11/02/16 11/02/16 04:16 05:29 11:58 WBC RBC Hgb Hct MCV MCH MCHC RDW Plt Count Lymph % (Auto) [place] % (Auto) Lymph # [place] # Baso # Seg Neutrophils % Seg Neuts % (Manual) Lymphocytes % (Manual) Monocytes % (Manual) Eosinophils % (Manual) Basophils % (Manual) Nucleated RBC % Seg Neutrophils # Seg Neutrophils # Man Lymphocytes # (Manual) Monocytes # (Manual) Eosinophils # (Manual) Basophils # (Manual) PT INR Fibrinogen dRVVT Confirm Interp Factor V Activity POC ABG pH POC ABG pCO2 POC ABG pO2 ABG pO2 ABG HCO3 ABG Base Excess ABG Hemoglobin Oxyhemoglobin Sodium Potassium 3.1 L Chloride Carbon Dioxide BUN 73 H Creatinine 2.3 H Glucose 112 H POC Glucose 135 H 149 H Lactic Acid Calcium Ionized Calcium Phosphorus Magnesium Direct Bilirubin AST ALT Alkaline Phosphatase Lactate Dehydrogenase Troponin T C-Reactive Protein Total Protein Albumin Prealbumin Triglycerides Cholesterol LDL Cholesterol Direct HDL Cholesterol 25-OH Vitamin D Total PTH Intact Urine pH Urine WBC (Auto) Urine Creatinine Urine Total Protein Fluid Total Protein Vancomycin Trough Rheumatoid Factor Complement C4 Miscellaneous Test Crossmatch 11/02/16 11/02/16 11/03/16 17:42 22:54 06:00 WBC RBC Hgb Hct MCV MCH MCHC RDW Plt Count Lymph % (Auto) [place] % (Auto) Lymph # [place] # Baso # Seg Neutrophils % Seg Neuts % (Manual) Lymphocytes % (Manual) Monocytes % (Manual) Eosinophils % (Manual) Basophils % (Manual) Nucleated RBC % Seg Neutrophils # Seg Neutrophils # Man Lymphocytes # (Manual) Monocytes # (Manual) Eosinophils # (Manual) Basophils # (Manual) PT INR Fibrinogen dRVVT Confirm Interp Factor V Activity POC ABG pH POC ABG pCO2 POC ABG pO2 ABG pO2 ABG HCO3 ABG Base Excess ABG Hemoglobin Oxyhemoglobin Sodium Potassium Chloride 96.7 L Carbon Dioxide BUN 41 H Creatinine 1.5 H Glucose 145 H POC Glucose 182 H 115 H Lactic Acid Calcium Ionized Calcium Phosphorus 1.60 L D Magnesium 1.50 L Direct Bilirubin AST ALT Alkaline Phosphatase Lactate Dehydrogenase Troponin T C-Reactive Protein Total Protein Albumin Prealbumin Triglycerides Cholesterol LDL Cholesterol Direct HDL Cholesterol 25-OH Vitamin D Total PTH Intact Urine pH Urine WBC (Auto) Urine Creatinine Urine Total Protein Fluid Total Protein Vancomycin Trough Rheumatoid Factor Complement C4 Miscellaneous Test Crossmatch 11/03/16 11/03/16 11/03/16 11:53 17:45 23:37 WBC RBC Hgb Hct MCV MCH MCHC RDW Plt Count Lymph % (Auto) [place] % (Auto) Lymph # [place] # Baso # Seg Neutrophils % Seg Neuts % (Manual) Lymphocytes % (Manual) Monocytes % (Manual) Eosinophils % (Manual) Basophils % (Manual) Nucleated RBC % Seg Neutrophils # Seg Neutrophils # Man Lymphocytes # (Manual) Monocytes # (Manual) Eosinophils # (Manual) Basophils # (Manual) PT INR Fibrinogen dRVVT Confirm Interp Factor V Activity POC ABG pH POC ABG pCO2 POC ABG pO2 ABG pO2 ABG HCO3 ABG Base Excess ABG Hemoglobin Oxyhemoglobin Sodium Potassium Chloride Carbon Dioxide BUN Creatinine Glucose POC Glucose 131 H 134 H 113 H Lactic Acid Calcium Ionized Calcium Phosphorus Magnesium Direct Bilirubin AST ALT Alkaline Phosphatase Lactate Dehydrogenase Troponin T C-Reactive Protein Total Protein Albumin Prealbumin Triglycerides Cholesterol LDL Cholesterol Direct HDL Cholesterol 25-OH Vitamin D Total PTH Intact Urine pH Urine WBC (Auto) Urine Creatinine Urine Total Protein Fluid Total Protein Vancomycin Trough Rheumatoid Factor Complement C4 Miscellaneous Test Crossmatch 11/04/16 11/04/16 11/04/16 05:41 06:00 12:10 WBC RBC Hgb Hct MCV MCH MCHC RDW Plt Count Lymph % (Auto) [place] % (Auto) Lymph # [place] # Baso # Seg Neutrophils % Seg Neuts % (Manual) Lymphocytes % (Manual) Monocytes % (Manual) Eosinophils % (Manual) Basophils % (Manual) Nucleated RBC % Seg Neutrophils # Seg Neutrophils # Man Lymphocytes # (Manual) Monocytes # (Manual) Eosinophils # (Manual) Basophils # (Manual) PT INR Fibrinogen dRVVT Confirm Interp Factor V Activity POC ABG pH POC ABG pCO2 POC ABG pO2 ABG pO2 ABG HCO3 ABG Base Excess ABG Hemoglobin Oxyhemoglobin Sodium Potassium Chloride 96.7 L Carbon Dioxide BUN 52 H Creatinine 1.9 H Glucose 126 H POC Glucose 137 H 191 H Lactic Acid Calcium Ionized Calcium Phosphorus Magnesium Direct Bilirubin AST ALT Alkaline Phosphatase Lactate Dehydrogenase Troponin T C-Reactive Protein Total Protein Albumin Prealbumin Triglycerides Cholesterol LDL Cholesterol Direct HDL Cholesterol 25-OH Vitamin D Total PTH Intact Urine pH Urine WBC (Auto) Urine Creatinine Urine Total Protein Fluid Total Protein Vancomycin Trough Rheumatoid Factor Complement C4 Miscellaneous Test Crossmatch 11/04/16 11/05/16 11/05/16 22:57 03:10 05:10 WBC RBC Hgb Hct MCV MCH MCHC RDW Plt Count Lymph % (Auto) [place] % (Auto) Lymph # [place] # Baso # Seg Neutrophils % Seg Neuts % (Manual) Lymphocytes % (Manual) Monocytes % (Manual) Eosinophils % (Manual) Basophils % (Manual) Nucleated RBC % Seg Neutrophils # Seg Neutrophils # Man Lymphocytes # (Manual) Monocytes # (Manual) Eosinophils # (Manual) Basophils # (Manual) PT INR Fibrinogen dRVVT Confirm Interp Factor V Activity POC ABG pH POC ABG pCO2 POC ABG pO2 ABG pO2 ABG HCO3 ABG Base Excess ABG Hemoglobin Oxyhemoglobin Sodium 136 L Potassium Chloride 97.2 L Carbon Dioxide BUN 32 H Creatinine 1.3 H Glucose 123 H POC Glucose 125 H 108 H Lactic Acid Calcium 7.8 L Ionized Calcium Phosphorus Magnesium Direct Bilirubin AST ALT Alkaline Phosphatase Lactate Dehydrogenase Troponin T C-Reactive Protein Total Protein Albumin Prealbumin Triglycerides Cholesterol LDL Cholesterol Direct HDL Cholesterol 25-OH Vitamin D Total PTH Intact Urine pH Urine WBC (Auto) Urine Creatinine Urine Total Protein Fluid Total Protein Vancomycin Trough Rheumatoid Factor Complement C4 Miscellaneous Test Crossmatch 11/05/16 11/05/16 11/05/16 12:23 13:09 13:25 WBC RBC Hgb Hct MCV MCH MCHC RDW Plt Count Lymph % (Auto) [place] % (Auto) Lymph # [place] # Baso # Seg Neutrophils % Seg Neuts % (Manual) Lymphocytes % (Manual) Monocytes % (Manual) Eosinophils % (Manual) Basophils % (Manual) Nucleated RBC % Seg Neutrophils # Seg Neutrophils # Man Lymphocytes # (Manual) Monocytes # (Manual) Eosinophils # (Manual) Basophils # (Manual) PT INR Fibrinogen dRVVT Confirm Interp Factor V Activity POC ABG pH POC ABG pCO2 POC ABG pO2 ABG pO2 ABG HCO3 ABG Base Excess ABG Hemoglobin Oxyhemoglobin Sodium Potassium Chloride Carbon Dioxide BUN Creatinine Glucose POC Glucose 124 H Lactic Acid Calcium Ionized Calcium Phosphorus Magnesium Direct Bilirubin AST ALT Alkaline Phosphatase Lactate Dehydrogenase Troponin T C-Reactive Protein 11.40 H Total Protein Albumin Prealbumin Triglycerides Cholesterol LDL Cholesterol Direct HDL Cholesterol 25-OH Vitamin D Total PTH Intact Urine pH 9.0 H Urine WBC (Auto) Urine Creatinine Urine Total Protein Fluid Total Protein Vancomycin Trough Rheumatoid Factor Complement C4 Miscellaneous Test Crossmatch 11/05/16 11/05/16 11/05/16 13:25 17:54 23:42 WBC RBC Hgb Hct MCV MCH MCHC RDW Plt Count Lymph % (Auto) [place] % (Auto) Lymph # [place] # Baso # Seg Neutrophils % Seg Neuts % (Manual) Lymphocytes % (Manual) Monocytes % (Manual) Eosinophils % (Manual) Basophils % (Manual) Nucleated RBC % Seg Neutrophils # Seg Neutrophils # Man Lymphocytes # (Manual) Monocytes # (Manual) Eosinophils # (Manual) Basophils # (Manual) PT INR Fibrinogen dRVVT Confirm Interp Factor V Activity POC ABG pH POC ABG pCO2 POC ABG pO2 ABG pO2 ABG HCO3 ABG Base Excess ABG Hemoglobin Oxyhemoglobin Sodium Potassium Chloride Carbon Dioxide BUN Creatinine Glucose POC Glucose 114 H 134 H Lactic Acid Calcium Ionized Calcium Phosphorus Magnesium Direct Bilirubin AST ALT Alkaline Phosphatase Lactate Dehydrogenase Troponin T C-Reactive Protein Total Protein Albumin Prealbumin Triglycerides Cholesterol LDL Cholesterol Direct HDL Cholesterol 25-OH Vitamin D Total PTH Intact Urine pH Urine WBC (Auto) Urine Creatinine Urine Total Protein Fluid Total Protein Vancomycin Trough Rheumatoid Factor Complement C4 Miscellaneous Test Flexitest 1 H Crossmatch 11/06/16 11/06/16 11/06/16 04:56 06:25 06:25 WBC RBC 2.50 L Hgb 7.3 L Hct 22.5 L MCV MCH MCHC RDW 16.9 H Plt Count Lymph % (Auto) [place] % (Auto) 10.5 H Lymph # [place] # 1.1 H Baso # Seg Neutrophils % Seg Neuts % (Manual) Lymphocytes % (Manual) Monocytes % (Manual) Eosinophils % (Manual) Basophils % (Manual) Nucleated RBC % Seg Neutrophils # Seg Neutrophils # Man Lymphocytes # (Manual) Monocytes # (Manual) Eosinophils # (Manual) Basophils # (Manual) PT INR Fibrinogen dRVVT Confirm Interp Factor V Activity POC ABG pH POC ABG pCO2 POC ABG pO2 ABG pO2 ABG HCO3 ABG Base Excess ABG Hemoglobin Oxyhemoglobin Sodium Potassium 5.1 H Chloride 95.9 L Carbon Dioxide BUN 52 H Creatinine 1.8 H Glucose 117 H POC Glucose 120 H Lactic Acid Calcium Ionized Calcium Phosphorus Magnesium Direct Bilirubin AST 103 H ALT 77 H Alkaline Phosphatase 285 H Lactate Dehydrogenase Troponin T C-Reactive Protein Total Protein 6.2 L Albumin 1.8 L Prealbumin 0.180 L Triglycerides Cholesterol LDL Cholesterol Direct HDL Cholesterol 25-OH Vitamin D Total PTH Intact Urine pH Urine WBC (Auto) Urine Creatinine Urine Total Protein Fluid Total Protein Vancomycin Trough Rheumatoid Factor Complement C4 Miscellaneous Test Crossmatch 11/06/16 11/06/16 11/06/16 11:56 17:14 23:52 WBC RBC Hgb Hct MCV MCH MCHC RDW Plt Count Lymph % (Auto) [place] % (Auto) Lymph # [place] # Baso # Seg Neutrophils % Seg Neuts % (Manual) Lymphocytes % (Manual) Monocytes % (Manual) Eosinophils % (Manual) Basophils % (Manual) Nucleated RBC % Seg Neutrophils # Seg Neutrophils # Man Lymphocytes # (Manual) Monocytes # (Manual) Eosinophils # (Manual) Basophils # (Manual) PT INR Fibrinogen dRVVT Confirm Interp Factor V Activity POC ABG pH POC ABG pCO2 POC ABG pO2 ABG pO2 ABG HCO3 ABG Base Excess ABG Hemoglobin Oxyhemoglobin Sodium Potassium Chloride Carbon Dioxide BUN Creatinine Glucose POC Glucose 141 H 125 H 130 H Lactic Acid Calcium Ionized Calcium Phosphorus Magnesium Direct Bilirubin AST ALT Alkaline Phosphatase Lactate Dehydrogenase Troponin T C-Reactive Protein Total Protein Albumin Prealbumin Triglycerides Cholesterol LDL Cholesterol Direct HDL Cholesterol 25-OH Vitamin D Total PTH Intact Urine pH Urine WBC (Auto) Urine Creatinine Urine Total Protein Fluid Total Protein Vancomycin Trough Rheumatoid Factor Complement C4 Miscellaneous Test Crossmatch 11/07/16 11/07/16 11/07/16 06:30 06:30 09:37 WBC RBC 2.18 L Hgb 6.3 L Hct 19.7 L* MCV MCH MCHC RDW 16.8 H Plt Count Lymph % (Auto) [place] % (Auto) 10.0 H Lymph # [place] # 1.0 H Baso # Seg Neutrophils % Seg Neuts % (Manual) Lymphocytes % (Manual) Monocytes % (Manual) Eosinophils % (Manual) Basophils % (Manual) Nucleated RBC % Seg Neutrophils # Seg Neutrophils # Man Lymphocytes # (Manual) Monocytes # (Manual) Eosinophils # (Manual) Basophils # (Manual) PT INR Fibrinogen dRVVT Confirm Interp Factor V Activity POC ABG pH POC ABG pCO2 POC ABG pO2 ABG pO2 ABG HCO3 ABG Base Excess ABG Hemoglobin Oxyhemoglobin Sodium 135 L Potassium Chloride 95.6 L Carbon Dioxide BUN 70 H Creatinine 2.0 H Glucose 126 H POC Glucose Lactic Acid Calcium Ionized Calcium Phosphorus Magnesium Direct Bilirubin AST ALT Alkaline Phosphatase Lactate Dehydrogenase Troponin T C-Reactive Protein Total Protein Albumin Prealbumin Triglycerides Cholesterol LDL Cholesterol Direct HDL Cholesterol 25-OH Vitamin D Total PTH Intact Urine pH Urine WBC (Auto) Urine Creatinine Urine Total Protein Fluid Total Protein Vancomycin Trough Rheumatoid Factor Complement C4 Miscellaneous Test Crossmatch See Detail 11/07/16 11/07/16 11/07/16 12:52 18:51 21:26 WBC RBC Hgb Hct MCV MCH MCHC RDW Plt Count Lymph % (Auto) [place] % (Auto) Lymph # [place] # Baso # Seg Neutrophils % Seg Neuts % (Manual) Lymphocytes % (Manual) Monocytes % (Manual) Eosinophils % (Manual) Basophils % (Manual) Nucleated RBC % Seg Neutrophils # Seg Neutrophils # Man Lymphocytes # (Manual) Monocytes # (Manual) Eosinophils # (Manual) Basophils # (Manual) PT INR Fibrinogen dRVVT Confirm Interp Factor V Activity POC ABG pH 7.523 H POC ABG pCO2 34.6 L POC ABG pO2 53 L ABG pO2 ABG HCO3 ABG Base Excess ABG Hemoglobin Oxyhemoglobin Sodium Potassium Chloride Carbon Dioxide BUN Creatinine Glucose POC Glucose 142 H 155 H Lactic Acid Calcium Ionized Calcium Phosphorus Magnesium Direct Bilirubin AST ALT Alkaline Phosphatase Lactate Dehydrogenase Troponin T C-Reactive Protein Total Protein Albumin Prealbumin Triglycerides Cholesterol LDL Cholesterol Direct HDL Cholesterol 25-OH Vitamin D Total PTH Intact Urine pH Urine WBC (Auto) Urine Creatinine Urine Total Protein Fluid Total Protein Vancomycin Trough Rheumatoid Factor Complement C4 Miscellaneous Test Crossmatch 11/07/16 11/08/16 11/08/16 21:34 13:03 23:37 WBC RBC 2.63 L Hgb 7.7 L Hct 22.7 L MCV MCH MCHC RDW 17.0 H Plt Count Lymph % (Auto) [place] % (Auto) Lymph # [place] # Baso # Seg Neutrophils % Seg Neuts % (Manual) Lymphocytes % (Manual) Monocytes % (Manual) Eosinophils % (Manual) Basophils % (Manual) Nucleated RBC % Seg Neutrophils # Seg Neutrophils # Man Lymphocytes # (Manual) Monocytes # (Manual) Eosinophils # (Manual) Basophils # (Manual) PT INR Fibrinogen dRVVT Confirm Interp Factor V Activity POC ABG pH 7.478 H POC ABG pCO2 34.0 L POC ABG pO2 50 L ABG pO2 ABG HCO3 ABG Base Excess ABG Hemoglobin Oxyhemoglobin Sodium Potassium Chloride Carbon Dioxide BUN Creatinine Glucose POC Glucose 113 H Lactic Acid Calcium Ionized Calcium Phosphorus Magnesium Direct Bilirubin AST ALT Alkaline Phosphatase Lactate Dehydrogenase Troponin T C-Reactive Protein Total Protein Albumin Prealbumin Triglycerides Cholesterol LDL Cholesterol Direct HDL Cholesterol 25-OH Vitamin D Total PTH Intact Urine pH Urine WBC (Auto) Urine Creatinine Urine Total Protein Fluid Total Protein Vancomycin Trough Rheumatoid Factor Complement C4 Miscellaneous Test Crossmatch 11/09/16 11/09/16 11/09/16 04:35 10:15 18:21 WBC RBC 2.68 L Hgb 7.8 L Hct 23.3 L MCV MCH MCHC RDW 17.0 H Plt Count Lymph % (Auto) [place] % (Auto) 12.1 H Lymph # [place] # 1.1 H Baso # Seg Neutrophils % Seg Neuts % (Manual) Lymphocytes % (Manual) Monocytes % (Manual) Eosinophils % (Manual) Basophils % (Manual) Nucleated RBC % Seg Neutrophils # Seg Neutrophils # Man Lymphocytes # (Manual) Monocytes # (Manual) Eosinophils # (Manual) Basophils # (Manual) PT INR Fibrinogen dRVVT Confirm Interp Factor V Activity POC ABG pH POC ABG pCO2 POC ABG pO2 ABG pO2 ABG HCO3 ABG Base Excess ABG Hemoglobin Oxyhemoglobin Sodium Potassium Chloride Carbon Dioxide BUN 51 H Creatinine 1.8 H Glucose POC Glucose 60 L Lactic Acid Calcium 8.3 L Ionized Calcium Phosphorus Magnesium Direct Bilirubin AST ALT Alkaline Phosphatase Lactate Dehydrogenase Troponin T C-Reactive Protein Total Protein Albumin Prealbumin Triglycerides Cholesterol LDL Cholesterol Direct HDL Cholesterol 25-OH Vitamin D Total PTH Intact Urine pH Urine WBC (Auto) Urine Creatinine Urine Total Protein Fluid Total Protein Vancomycin Trough Rheumatoid Factor Complement C4 Miscellaneous Test Crossmatch 11/09/16 11/10/16 11/10/16 18:55 07:00 11:51 WBC RBC Hgb Hct MCV MCH MCHC RDW Plt Count Lymph % (Auto) [place] % (Auto) Lymph # [place] # Baso # Seg Neutrophils % Seg Neuts % (Manual) Lymphocytes % (Manual) Monocytes % (Manual) Eosinophils % (Manual) Basophils % (Manual) Nucleated RBC % Seg Neutrophils # Seg Neutrophils # Man Lymphocytes # (Manual) Monocytes # (Manual) Eosinophils # (Manual) Basophils # (Manual) PT INR Fibrinogen dRVVT Confirm Interp Factor V Activity POC ABG pH POC ABG pCO2 POC ABG pO2 ABG pO2 ABG HCO3 ABG Base Excess ABG Hemoglobin Oxyhemoglobin Sodium Potassium 3.0 L D Chloride 97.4 L Carbon Dioxide BUN 28 H Creatinine 1.3 H Glucose POC Glucose 68 L 120 H Lactic Acid Calcium 7.8 L Ionized Calcium Phosphorus Magnesium Direct Bilirubin AST ALT Alkaline Phosphatase Lactate Dehydrogenase Troponin T C-Reactive Protein Total Protein Albumin Prealbumin Triglycerides Cholesterol LDL Cholesterol Direct HDL Cholesterol 25-OH Vitamin D Total PTH Intact Urine pH Urine WBC (Auto) Urine Creatinine Urine Total Protein Fluid Total Protein Vancomycin Trough Rheumatoid Factor Complement C4 Miscellaneous Test Crossmatch 11/10/16 11/11/16 11/11/16 14:20 06:59 06:59 WBC RBC 2.81 L Hgb 8.1 L Hct 24.4 L MCV MCH MCHC RDW 16.4 H Plt Count Lymph % (Auto) [place] % (Auto) 10.8 H Lymph # [place] # 1.0 H Baso # Seg Neutrophils % Seg Neuts % (Manual) Lymphocytes % (Manual) Monocytes % (Manual) Eosinophils % (Manual) Basophils % (Manual) Nucleated RBC % Seg Neutrophils # Seg Neutrophils # Man Lymphocytes # (Manual) Monocytes # (Manual) Eosinophils # (Manual) Basophils # (Manual) PT INR Fibrinogen dRVVT Confirm Interp Factor V Activity POC ABG pH POC ABG pCO2 POC ABG pO2 ABG pO2 ABG HCO3 ABG Base Excess ABG Hemoglobin Oxyhemoglobin Sodium Potassium Chloride Carbon Dioxide BUN Creatinine Glucose POC Glucose Lactic Acid Calcium Ionized Calcium Phosphorus Magnesium Direct Bilirubin AST ALT Alkaline Phosphatase Lactate Dehydrogenase 196 H Troponin T C-Reactive Protein Total Protein 6.1 L Albumin Prealbumin Triglycerides Cholesterol LDL Cholesterol Direct HDL Cholesterol 25-OH Vitamin D Total PTH Intact Urine pH Urine WBC (Auto) Urine Creatinine Urine Total Protein Fluid Total Protein < 3.0 L Vancomycin Trough Rheumatoid Factor Complement C4 Miscellaneous Test Crossmatch 11/11/16 11/11/16 11/12/16 06:59 09:50 04:00 WBC RBC Hgb Hct MCV MCH MCHC RDW Plt Count Lymph % (Auto) [place] % (Auto) Lymph # [place] # Baso # Seg Neutrophils % Seg Neuts % (Manual) Lymphocytes % (Manual) Monocytes % (Manual) Eosinophils % (Manual) Basophils % (Manual) Nucleated RBC % Seg Neutrophils # Seg Neutrophils # Man Lymphocytes # (Manual) Monocytes # (Manual) Eosinophils # (Manual) Basophils # (Manual) PT INR 1.18 H Fibrinogen dRVVT Confirm Interp Factor V Activity POC ABG pH POC ABG pCO2 POC ABG pO2 ABG pO2 ABG HCO3 ABG Base Excess ABG Hemoglobin Oxyhemoglobin Sodium 136 L 133 L Potassium Chloride 96.1 L 94.8 L Carbon Dioxide 21 L BUN 37 H 42 H Creatinine 1.8 H 2.0 H Glucose POC Glucose Lactic Acid Calcium Ionized Calcium Phosphorus Magnesium Direct Bilirubin AST ALT Alkaline Phosphatase Lactate Dehydrogenase Troponin T C-Reactive Protein Total Protein Albumin Prealbumin Triglycerides Cholesterol LDL Cholesterol Direct HDL Cholesterol 25-OH Vitamin D Total PTH Intact Urine pH Urine WBC (Auto) Urine Creatinine Urine Total Protein Fluid Total Protein Vancomycin Trough Rheumatoid Factor Complement C4 Miscellaneous Test Crossmatch 11/12/16 11/12/16 11/13/16 04:00 23:55 05:53 WBC RBC Hgb 8.9 L Hct 27.2 L MCV MCH MCHC RDW Plt Count Lymph % (Auto) [place] % (Auto) Lymph # [place] # Baso # Seg Neutrophils % Seg Neuts % (Manual) Lymphocytes % (Manual) Monocytes % (Manual) Eosinophils % (Manual) Basophils % (Manual) Nucleated RBC % Seg Neutrophils # Seg Neutrophils # Man Lymphocytes # (Manual) Monocytes # (Manual) Eosinophils # (Manual) Basophils # (Manual) PT INR Fibrinogen dRVVT Confirm Interp Factor V Activity POC ABG pH POC ABG pCO2 POC ABG pO2 ABG pO2 ABG HCO3 ABG Base Excess ABG Hemoglobin Oxyhemoglobin Sodium Potassium Chloride Carbon Dioxide BUN Creatinine Glucose POC Glucose 132 H 120 H Lactic Acid Calcium Ionized Calcium Phosphorus Magnesium Direct Bilirubin AST ALT Alkaline Phosphatase Lactate Dehydrogenase Troponin T C-Reactive Protein Total Protein Albumin Prealbumin Triglycerides Cholesterol LDL Cholesterol Direct HDL Cholesterol 25-OH Vitamin D Total PTH Intact Urine pH Urine WBC (Auto) Urine Creatinine Urine Total Protein Fluid Total Protein Vancomycin Trough Rheumatoid Factor Complement C4 Miscellaneous Test Crossmatch 11/13/16 11/13/16 11/13/16 11:43 17:09 23:41 WBC RBC Hgb Hct MCV MCH MCHC RDW Plt Count Lymph % (Auto) [place] % (Auto) Lymph # [place] # Baso # Seg Neutrophils % Seg Neuts % (Manual) Lymphocytes % (Manual) Monocytes % (Manual) Eosinophils % (Manual) Basophils % (Manual) Nucleated RBC % Seg Neutrophils # Seg Neutrophils # Man Lymphocytes # (Manual) Monocytes # (Manual) Eosinophils # (Manual) Basophils # (Manual) PT INR Fibrinogen dRVVT Confirm Interp Factor V Activity POC ABG pH POC ABG pCO2 POC ABG pO2 ABG pO2 ABG HCO3 ABG Base Excess ABG Hemoglobin Oxyhemoglobin Sodium Potassium Chloride Carbon Dioxide BUN Creatinine Glucose POC Glucose 114 H 113 H 108 H Lactic Acid Calcium Ionized Calcium Phosphorus Magnesium Direct Bilirubin AST ALT Alkaline Phosphatase Lactate Dehydrogenase Troponin T C-Reactive Protein Total Protein Albumin Prealbumin Triglycerides Cholesterol LDL Cholesterol Direct HDL Cholesterol 25-OH Vitamin D Total PTH Intact Urine pH Urine WBC (Auto) Urine Creatinine Urine Total Protein Fluid Total Protein Vancomycin Trough Rheumatoid Factor Complement C4 Miscellaneous Test Crossmatch 11/13/16 11/15/16 11/15/16 Unknown 00:37 03:30 WBC 11.2 H RBC 2.72 L Hgb 7.6 L Hct 23.4 L MCV MCH MCHC RDW 16.5 H Plt Count Lymph % (Auto) [place] % (Auto) Lymph # [place] # Baso # Seg Neutrophils % Seg Neuts % (Manual) Lymphocytes % (Manual) Monocytes % (Manual) Eosinophils % (Manual) Basophils % (Manual) Nucleated RBC % Seg Neutrophils # Seg Neutrophils # Man Lymphocytes # (Manual) Monocytes # (Manual) Eosinophils # (Manual) Basophils # (Manual) PT INR Fibrinogen dRVVT Confirm Interp Factor V Activity POC ABG pH POC ABG pCO2 POC ABG pO2 ABG pO2 ABG HCO3 ABG Base Excess ABG Hemoglobin Oxyhemoglobin Sodium 135 L Potassium Chloride 95.2 L Carbon Dioxide BUN 52 H Creatinine 2.2 H Glucose POC Glucose 108 H Lactic Acid Calcium Ionized Calcium Phosphorus Magnesium Direct Bilirubin AST ALT Alkaline Phosphatase Lactate Dehydrogenase Troponin T C-Reactive Protein Total Protein Albumin Prealbumin Triglycerides Cholesterol LDL Cholesterol Direct HDL Cholesterol 25-OH Vitamin D Total PTH Intact Urine pH Urine WBC (Auto) Urine Creatinine Urine Total Protein Fluid Total Protein Vancomycin Trough Rheumatoid Factor Complement C4 Miscellaneous Test Crossmatch 11/15/16 11/15/16 11/15/16 03:30 05:04 11:50 WBC RBC Hgb Hct MCV MCH MCHC RDW Plt Count Lymph % (Auto) [place] % (Auto) Lymph # [place] # Baso # Seg Neutrophils % Seg Neuts % (Manual) Lymphocytes % (Manual) Monocytes % (Manual) Eosinophils % (Manual) Basophils % (Manual) Nucleated RBC % Seg Neutrophils # Seg Neutrophils # Man Lymphocytes # (Manual) Monocytes # (Manual) Eosinophils # (Manual) Basophils # (Manual) PT INR Fibrinogen dRVVT Confirm Interp Factor V Activity POC ABG pH POC ABG pCO2 POC ABG pO2 ABG pO2 ABG HCO3 ABG Base Excess ABG Hemoglobin Oxyhemoglobin Sodium Potassium 3.4 L Chloride Carbon Dioxide BUN 25 H Creatinine 1.5 H Glucose 103 H POC Glucose 121 H 144 H Lactic Acid Calcium Ionized Calcium Phosphorus Magnesium Direct Bilirubin AST ALT Alkaline Phosphatase Lactate Dehydrogenase Troponin T C-Reactive Protein Total Protein Albumin Prealbumin Triglycerides Cholesterol LDL Cholesterol Direct HDL Cholesterol 25-OH Vitamin D Total PTH Intact Urine pH Urine WBC (Auto) Urine Creatinine Urine Total Protein Fluid Total Protein Vancomycin Trough Rheumatoid Factor Complement C4 Miscellaneous Test Crossmatch 11/15/16 11/15/16 11/16/16 21:28 23:20 11:44 WBC RBC Hgb Hct MCV MCH MCHC RDW Plt Count Lymph % (Auto) [place] % (Auto) Lymph # [place] # Baso # Seg Neutrophils % Seg Neuts % (Manual) Lymphocytes % (Manual) Monocytes % (Manual) Eosinophils % (Manual) Basophils % (Manual) Nucleated RBC % Seg Neutrophils # Seg Neutrophils # Man Lymphocytes # (Manual) Monocytes # (Manual) Eosinophils # (Manual) Basophils # (Manual) PT INR Fibrinogen dRVVT Confirm Interp Factor V Activity POC ABG pH 7.462 H POC ABG pCO2 POC ABG pO2 71 L ABG pO2 ABG HCO3 ABG Base Excess ABG Hemoglobin Oxyhemoglobin Sodium Potassium Chloride Carbon Dioxide BUN Creatinine Glucose POC Glucose 116 H 133 H Lactic Acid Calcium Ionized Calcium Phosphorus Magnesium Direct Bilirubin AST ALT Alkaline Phosphatase Lactate Dehydrogenase Troponin T C-Reactive Protein Total Protein Albumin Prealbumin Triglycerides Cholesterol LDL Cholesterol Direct HDL Cholesterol 25-OH Vitamin D Total PTH Intact Urine pH Urine WBC (Auto) Urine Creatinine Urine Total Protein Fluid Total Protein Vancomycin Trough Rheumatoid Factor Complement C4 Miscellaneous Test Crossmatch 11/16/16 11/16/16 11/16/16 12:20 17:05 23:35 WBC 11.7 H RBC 2.73 L Hgb 7.6 L Hct 23.7 L MCV MCH MCHC RDW 16.6 H Plt Count Lymph % (Auto) [place] % (Auto) Lymph # [place] # Baso # Seg Neutrophils % Seg Neuts % (Manual) Lymphocytes % (Manual) Monocytes % (Manual) Eosinophils % (Manual) Basophils % (Manual) Nucleated RBC % Seg Neutrophils # Seg Neutrophils # Man Lymphocytes # (Manual) Monocytes # (Manual) Eosinophils # (Manual) Basophils # (Manual) PT INR Fibrinogen dRVVT Confirm Interp Factor V Activity POC ABG pH POC ABG pCO2 POC ABG pO2 ABG pO2 ABG HCO3 ABG Base Excess ABG Hemoglobin Oxyhemoglobin Sodium Potassium Chloride Carbon Dioxide BUN Creatinine Glucose POC Glucose 154 H 125 H Lactic Acid Calcium Ionized Calcium Phosphorus Magnesium Direct Bilirubin AST ALT Alkaline Phosphatase Lactate Dehydrogenase Troponin T C-Reactive Protein Total Protein Albumin Prealbumin Triglycerides Cholesterol LDL Cholesterol Direct HDL Cholesterol 25-OH Vitamin D Total PTH Intact Urine pH Urine WBC (Auto) Urine Creatinine Urine Total Protein Fluid Total Protein Vancomycin Trough Rheumatoid Factor Complement C4 Miscellaneous Test Crossmatch 11/17/16 11/17/16 11/17/16 03:20 03:20 03:20 WBC RBC 2.55 L Hgb 7.3 L Hct 21.9 L MCV MCH MCHC RDW 16.6 H Plt Count Lymph % (Auto) [place] % (Auto) 11.5 H Lymph # [place] # 1.1 H Baso # Seg Neutrophils % Seg Neuts % (Manual) Lymphocytes % (Manual) Monocytes % (Manual) Eosinophils % (Manual) Basophils % (Manual) Nucleated RBC % Seg Neutrophils # Seg Neutrophils # Man Lymphocytes # (Manual) Monocytes # (Manual) Eosinophils # (Manual) Basophils # (Manual) PT 16.8 H INR 1.37 H Fibrinogen dRVVT Confirm Interp Factor V Activity POC ABG pH POC ABG pCO2 POC ABG pO2 ABG pO2 ABG HCO3 ABG Base Excess ABG Hemoglobin Oxyhemoglobin Sodium Potassium 3.5 L Chloride Carbon Dioxide BUN 21 H Creatinine Glucose POC Glucose Lactic Acid Calcium 7.9 L Ionized Calcium Phosphorus Magnesium Direct Bilirubin AST ALT Alkaline Phosphatase Lactate Dehydrogenase Troponin T C-Reactive Protein Total Protein Albumin Prealbumin Triglycerides Cholesterol LDL Cholesterol Direct HDL Cholesterol 25-OH Vitamin D Total PTH Intact Urine pH Urine WBC (Auto) Urine Creatinine Urine Total Protein Fluid Total Protein Vancomycin Trough Rheumatoid Factor Complement C4 Miscellaneous Test Crossmatch 11/17/16 11/17/16 11/17/16 06:34 11:21 21:22 WBC RBC Hgb Hct MCV MCH MCHC RDW Plt Count Lymph % (Auto) [place] % (Auto) Lymph # [place] # Baso # Seg Neutrophils % Seg Neuts % (Manual) Lymphocytes % (Manual) Monocytes % (Manual) Eosinophils % (Manual) Basophils % (Manual) Nucleated RBC % Seg Neutrophils # Seg Neutrophils # Man Lymphocytes # (Manual) Monocytes # (Manual) Eosinophils # (Manual) Basophils # (Manual) PT INR Fibrinogen dRVVT Confirm Interp Factor V Activity POC ABG pH 7.467 H POC ABG pCO2 POC ABG pO2 73 L ABG pO2 ABG HCO3 ABG Base Excess ABG Hemoglobin Oxyhemoglobin Sodium Potassium Chloride Carbon Dioxide BUN Creatinine Glucose POC Glucose 121 H 119 H Lactic Acid Calcium Ionized Calcium Phosphorus Magnesium Direct Bilirubin AST ALT Alkaline Phosphatase Lactate Dehydrogenase Troponin T C-Reactive Protein Total Protein Albumin Prealbumin Triglycerides Cholesterol LDL Cholesterol Direct HDL Cholesterol 25-OH Vitamin D Total PTH Intact Urine pH Urine WBC (Auto) Urine Creatinine Urine Total Protein Fluid Total Protein Vancomycin Trough Rheumatoid Factor Complement C4 Miscellaneous Test Crossmatch 11/18/16 11/18/16 11/19/16 12:16 17:19 00:00 WBC RBC Hgb Hct MCV MCH MCHC RDW Plt Count Lymph % (Auto) [place] % (Auto) Lymph # [place] # Baso # Seg Neutrophils % Seg Neuts % (Manual) Lymphocytes % (Manual) Monocytes % (Manual) Eosinophils % (Manual) Basophils % (Manual) Nucleated RBC % Seg Neutrophils # Seg Neutrophils # Man Lymphocytes # (Manual) Monocytes # (Manual) Eosinophils # (Manual) Basophils # (Manual) PT INR Fibrinogen dRVVT Confirm Interp Factor V Activity POC ABG pH POC ABG pCO2 POC ABG pO2 ABG pO2 ABG HCO3 ABG Base Excess ABG Hemoglobin Oxyhemoglobin Sodium Potassium Chloride Carbon Dioxide BUN Creatinine Glucose POC Glucose 124 H 162 H 139 H Lactic Acid Calcium Ionized Calcium Phosphorus Magnesium Direct Bilirubin AST ALT Alkaline Phosphatase Lactate Dehydrogenase Troponin T C-Reactive Protein Total Protein Albumin Prealbumin Triglycerides Cholesterol LDL Cholesterol Direct HDL Cholesterol 25-OH Vitamin D Total PTH Intact Urine pH Urine WBC (Auto) Urine Creatinine Urine Total Protein Fluid Total Protein Vancomycin Trough Rheumatoid Factor Complement C4 Miscellaneous Test Crossmatch 11/19/16 11/19/16 11/20/16 05:00 12:43 00:40 WBC RBC Hgb Hct MCV MCH MCHC RDW Plt Count Lymph % (Auto) [place] % (Auto) Lymph # [place] # Baso # Seg Neutrophils % Seg Neuts % (Manual) Lymphocytes % (Manual) Monocytes % (Manual) Eosinophils % (Manual) Basophils % (Manual) Nucleated RBC % Seg Neutrophils # Seg Neutrophils # Man Lymphocytes # (Manual) Monocytes # (Manual) Eosinophils # (Manual) Basophils # (Manual) PT INR Fibrinogen dRVVT Confirm Interp Factor V Activity POC ABG pH POC ABG pCO2 POC ABG pO2 ABG pO2 ABG HCO3 ABG Base Excess ABG Hemoglobin Oxyhemoglobin Sodium Potassium Chloride Carbon Dioxide BUN Creatinine Glucose POC Glucose 110 H 125 H 136 H Lactic Acid Calcium Ionized Calcium Phosphorus Magnesium Direct Bilirubin AST ALT Alkaline Phosphatase Lactate Dehydrogenase Troponin T C-Reactive Protein Total Protein Albumin Prealbumin Triglycerides Cholesterol LDL Cholesterol Direct HDL Cholesterol 25-OH Vitamin D Total PTH Intact Urine pH Urine WBC (Auto) Urine Creatinine Urine Total Protein Fluid Total Protein Vancomycin Trough Rheumatoid Factor Complement C4 Miscellaneous Test Crossmatch 11/20/16 11/20/16 11/20/16 05:00 05:00 05:51 WBC 13.1 H RBC 2.74 L Hgb 7.7 L Hct 23.6 L MCV MCH MCHC RDW 16.9 H Plt Count Lymph % (Auto) [place] % (Auto) 10.8 H Lymph # [place] # 1.4 H Baso # Seg Neutrophils % Seg Neuts % (Manual) Lymphocytes % (Manual) Monocytes % (Manual) Eosinophils % (Manual) Basophils % (Manual) Nucleated RBC % Seg Neutrophils # 7.9 H Seg Neutrophils # Man Lymphocytes # (Manual) Monocytes # (Manual) Eosinophils # (Manual) Basophils # (Manual) PT INR Fibrinogen dRVVT Confirm Interp Factor V Activity POC ABG pH POC ABG pCO2 POC ABG pO2 ABG pO2 ABG HCO3 ABG Base Excess ABG Hemoglobin Oxyhemoglobin Sodium Potassium Chloride Carbon Dioxide BUN 31 H Creatinine 1.8 H Glucose 129 H POC Glucose 133 H Lactic Acid Calcium Ionized Calcium Phosphorus Magnesium Direct Bilirubin AST ALT Alkaline Phosphatase Lactate Dehydrogenase Troponin T C-Reactive Protein Total Protein Albumin Prealbumin Triglycerides Cholesterol LDL Cholesterol Direct HDL Cholesterol 25-OH Vitamin D Total PTH Intact Urine pH Urine WBC (Auto) Urine Creatinine Urine Total Protein Fluid Total Protein Vancomycin Trough Rheumatoid Factor Complement C4 Miscellaneous Test Crossmatch 11/20/16 11/20/16 11/21/16 12:40 18:10 01:20 WBC RBC Hgb Hct MCV MCH MCHC RDW Plt Count Lymph % (Auto) [place] % (Auto) Lymph # [place] # Baso # Seg Neutrophils % Seg Neuts % (Manual) Lymphocytes % (Manual) Monocytes % (Manual) Eosinophils % (Manual) Basophils % (Manual) Nucleated RBC % Seg Neutrophils # Seg Neutrophils # Man Lymphocytes # (Manual) Monocytes # (Manual) Eosinophils # (Manual) Basophils # (Manual) PT INR Fibrinogen dRVVT Confirm Interp Factor V Activity POC ABG pH POC ABG pCO2 POC ABG pO2 ABG pO2 ABG HCO3 ABG Base Excess ABG Hemoglobin Oxyhemoglobin Sodium Potassium Chloride Carbon Dioxide BUN Creatinine Glucose POC Glucose 134 H 138 H 136 H Lactic Acid Calcium Ionized Calcium Phosphorus Magnesium Direct Bilirubin AST ALT Alkaline Phosphatase Lactate Dehydrogenase Troponin T C-Reactive Protein Total Protein Albumin Prealbumin Triglycerides Cholesterol LDL Cholesterol Direct HDL Cholesterol 25-OH Vitamin D Total PTH Intact Urine pH Urine WBC (Auto) Urine Creatinine Urine Total Protein Fluid Total Protein Vancomycin Trough Rheumatoid Factor Complement C4 Miscellaneous Test Crossmatch 11/21/16 11/21/16 11/21/16 07:04 07:45 07:45 WBC 22.0 H RBC 2.91 L Hgb 8.2 L Hct 25.4 L MCV MCH MCHC RDW 17.1 H Plt Count Lymph % (Auto) [place] % (Auto) Lymph # [place] # Baso # Seg Neutrophils % Seg Neuts % (Manual) Lymphocytes % (Manual) 8.0 L Monocytes % (Manual) Eosinophils % (Manual) Basophils % (Manual) Nucleated RBC % Seg Neutrophils # Seg Neutrophils # Man 14.7 H Lymphocytes # (Manual) Monocytes # (Manual) 1.1 H Eosinophils # (Manual) Basophils # (Manual) PT INR Fibrinogen dRVVT Confirm Interp Factor V Activity POC ABG pH POC ABG pCO2 POC ABG pO2 ABG pO2 ABG HCO3 ABG Base Excess ABG Hemoglobin Oxyhemoglobin Sodium Potassium Chloride Carbon Dioxide BUN 42 H Creatinine 2.0 H Glucose POC Glucose 108 H Lactic Acid Calcium Ionized Calcium Phosphorus Magnesium Direct Bilirubin AST ALT Alkaline Phosphatase Lactate Dehydrogenase Troponin T C-Reactive Protein Total Protein Albumin Prealbumin Triglycerides Cholesterol LDL Cholesterol Direct HDL Cholesterol 25-OH Vitamin D Total PTH Intact Urine pH Urine WBC (Auto) Urine Creatinine Urine Total Protein Fluid Total Protein Vancomycin Trough Rheumatoid Factor Complement C4 Miscellaneous Test Crossmatch 11/21/16 11/21/16 11/21/16 08:38 10:09 11:20 WBC RBC Hgb Hct MCV MCH MCHC RDW Plt Count Lymph % (Auto) [place] % (Auto) Lymph # [place] # Baso # Seg Neutrophils % Seg Neuts % (Manual) Lymphocytes % (Manual) Monocytes % (Manual) Eosinophils % (Manual) Basophils % (Manual) Nucleated RBC % Seg Neutrophils # Seg Neutrophils # Man Lymphocytes # (Manual) Monocytes # (Manual) Eosinophils # (Manual) Basophils # (Manual) PT INR Fibrinogen dRVVT Confirm Interp Factor V Activity POC ABG pH 7.346 L POC ABG pCO2 34.4 L POC ABG pO2 314 H ABG pO2 ABG HCO3 ABG Base Excess ABG Hemoglobin Oxyhemoglobin Sodium Potassium Chloride Carbon Dioxide BUN Creatinine Glucose POC Glucose 195 H 153 H Lactic Acid Calcium Ionized Calcium Phosphorus Magnesium Direct Bilirubin AST ALT Alkaline Phosphatase Lactate Dehydrogenase Troponin T C-Reactive Protein Total Protein Albumin Prealbumin Triglycerides Cholesterol LDL Cholesterol Direct HDL Cholesterol 25-OH Vitamin D Total PTH Intact Urine pH Urine WBC (Auto) Urine Creatinine Urine Total Protein Fluid Total Protein Vancomycin Trough Rheumatoid Factor Complement C4 Miscellaneous Test Crossmatch 11/21/16 11/22/16 11/22/16 23:37 04:48 05:00 WBC 29.7 H RBC 2.73 L Hgb 7.5 L Hct 24.2 L MCV MCH 27 L MCHC RDW 17.4 H Plt Count Lymph % (Auto) [place] % (Auto) Lymph # [place] # Baso # Seg Neutrophils % Seg Neuts % (Manual) Lymphocytes % (Manual) 7.0 L Monocytes % (Manual) Eosinophils % (Manual) Basophils % (Manual) Nucleated RBC % Seg Neutrophils # Seg Neutrophils # Man 15.4 H Lymphocytes # (Manual) Monocytes # (Manual) Eosinophils # (Manual) Basophils # (Manual) PT INR Fibrinogen dRVVT Confirm Interp Factor V Activity POC ABG pH POC ABG pCO2 24.6 L POC ABG pO2 189 H ABG pO2 ABG HCO3 ABG Base Excess ABG Hemoglobin Oxyhemoglobin Sodium Potassium Chloride Carbon Dioxide BUN Creatinine Glucose POC Glucose 65 L Lactic Acid Calcium Ionized Calcium Phosphorus Magnesium Direct Bilirubin AST ALT Alkaline Phosphatase Lactate Dehydrogenase Troponin T C-Reactive Protein Total Protein Albumin Prealbumin Triglycerides Cholesterol LDL Cholesterol Direct HDL Cholesterol 25-OH Vitamin D Total PTH Intact Urine pH Urine WBC (Auto) Urine Creatinine Urine Total Protein Fluid Total Protein Vancomycin Trough Rheumatoid Factor Complement C4 Miscellaneous Test Crossmatch 11/22/16 11/23/16 11/23/16 05:00 03:44 04:06 WBC RBC 2.52 L Hgb 7.2 L Hct 21.5 L MCV MCH MCHC RDW 17.1 H Plt Count Lymph % (Auto) [place] % (Auto) 12.4 H Lymph # [place] # 1.4 H Baso # Seg Neutrophils % Seg Neuts % (Manual) Lymphocytes % (Manual) Monocytes % (Manual) Eosinophils % (Manual) Basophils % (Manual) Nucleated RBC % Seg Neutrophils # Seg Neutrophils # Man Lymphocytes # (Manual) Monocytes # (Manual) Eosinophils # (Manual) Basophils # (Manual) PT INR Fibrinogen dRVVT Confirm Interp Factor V Activity POC ABG pH 7.493 H POC ABG pCO2 29.5 L POC ABG pO2 49 L ABG pO2 ABG HCO3 ABG Base Excess ABG Hemoglobin Oxyhemoglobin Sodium 134 L Potassium Chloride 95.9 L Carbon Dioxide 14 L D BUN 51 H Creatinine 2.6 H Glucose POC Glucose Lactic Acid Calcium Ionized Calcium Phosphorus Magnesium Direct Bilirubin AST ALT Alkaline Phosphatase Lactate Dehydrogenase Troponin T C-Reactive Protein Total Protein Albumin Prealbumin Triglycerides Cholesterol LDL Cholesterol Direct HDL Cholesterol 25-OH Vitamin D Total PTH Intact Urine pH Urine WBC (Auto) Urine Creatinine Urine Total Protein Fluid Total Protein Vancomycin Trough Rheumatoid Factor Complement C4 Miscellaneous Test Crossmatch 11/23/16 11/23/16 11/24/16 04:06 11:29 06:39 WBC RBC Hgb Hct MCV MCH MCHC RDW Plt Count Lymph % (Auto) [place] % (Auto) Lymph # [place] # Baso # Seg Neutrophils % Seg Neuts % (Manual) Lymphocytes % (Manual) Monocytes % (Manual) Eosinophils % (Manual) Basophils % (Manual) Nucleated RBC % Seg Neutrophils # Seg Neutrophils # Man Lymphocytes # (Manual) Monocytes # (Manual) Eosinophils # (Manual) Basophils # (Manual) PT INR Fibrinogen dRVVT Confirm Interp Factor V Activity POC ABG pH POC ABG pCO2 POC ABG pO2 ABG pO2 ABG HCO3 ABG Base Excess ABG Hemoglobin Oxyhemoglobin Sodium 136 L Potassium Chloride 95.2 L Carbon Dioxide BUN 60 H Creatinine 2.9 H Glucose POC Glucose 69 L 305 H Lactic Acid Calcium Ionized Calcium Phosphorus Magnesium 1.60 L Direct Bilirubin AST ALT Alkaline Phosphatase Lactate Dehydrogenase Troponin T C-Reactive Protein Total Protein Albumin Prealbumin Triglycerides Cholesterol LDL Cholesterol Direct HDL Cholesterol 25-OH Vitamin D Total PTH Intact Urine pH Urine WBC (Auto) Urine Creatinine Urine Total Protein Fluid Total Protein Vancomycin Trough Rheumatoid Factor Complement C4 Miscellaneous Test Crossmatch 11/24/16 11/24/16 11/24/16 06:43 08:08 08:08 WBC 11.2 H RBC 2.47 L Hgb 6.8 L Hct 20.6 L MCV MCH MCHC RDW 17.0 H Plt Count Lymph % (Auto) [place] % (Auto) 10.3 H Lymph # [place] # 1.2 H Baso # Seg Neutrophils % Seg Neuts % (Manual) Lymphocytes % (Manual) Monocytes % (Manual) Eosinophils % (Manual) Basophils % (Manual) Nucleated RBC % Seg Neutrophils # Seg Neutrophils # Man Lymphocytes # (Manual) Monocytes # (Manual) Eosinophils # (Manual) Basophils # (Manual) PT INR Fibrinogen dRVVT Confirm Interp Factor V Activity POC ABG pH POC ABG pCO2 POC ABG pO2 ABG pO2 ABG HCO3 ABG Base Excess ABG Hemoglobin Oxyhemoglobin Sodium 135 L Potassium Chloride 96.3 L Carbon Dioxide BUN 61 H Creatinine 3.1 H Glucose POC Glucose 62 L Lactic Acid Calcium 8.2 L Ionized Calcium Phosphorus Magnesium Direct Bilirubin AST ALT Alkaline Phosphatase Lactate Dehydrogenase Troponin T C-Reactive Protein Total Protein Albumin Prealbumin Triglycerides Cholesterol LDL Cholesterol Direct HDL Cholesterol 25-OH Vitamin D Total PTH Intact Urine pH Urine WBC (Auto) Urine Creatinine Urine Total Protein Fluid Total Protein Vancomycin Trough Rheumatoid Factor Complement C4 Miscellaneous Test Crossmatch 11/24/16 11/24/16 11/24/16 08:34 11:20 12:41 WBC RBC Hgb Hct MCV MCH MCHC RDW Plt Count Lymph % (Auto) [place] % (Auto) Lymph # [place] # Baso # Seg Neutrophils % Seg Neuts % (Manual) Lymphocytes % (Manual) Monocytes % (Manual) Eosinophils % (Manual) Basophils % (Manual) Nucleated RBC % Seg Neutrophils # Seg Neutrophils # Man Lymphocytes # (Manual) Monocytes # (Manual) Eosinophils # (Manual) Basophils # (Manual) PT INR Fibrinogen dRVVT Confirm Interp Factor V Activity POC ABG pH POC ABG pCO2 POC ABG pO2 ABG pO2 ABG HCO3 ABG Base Excess ABG Hemoglobin Oxyhemoglobin Sodium Potassium Chloride Carbon Dioxide BUN Creatinine Glucose POC Glucose 108 H Lactic Acid Calcium Ionized Calcium Phosphorus Magnesium 1.60 L Direct Bilirubin AST ALT Alkaline Phosphatase Lactate Dehydrogenase Troponin T C-Reactive Protein Total Protein Albumin Prealbumin Triglycerides Cholesterol LDL Cholesterol Direct HDL Cholesterol 25-OH Vitamin D Total PTH Intact Urine pH Urine WBC (Auto) Urine Creatinine Urine Total Protein Fluid Total Protein Vancomycin Trough Rheumatoid Factor Complement C4 Miscellaneous Test Crossmatch See Detail 11/25/16 11/25/16 11/25/16 00:03 04:42 04:42 WBC RBC 3.03 L Hgb 8.6 L Hct 25.3 L MCV MCH MCHC RDW 16.2 H Plt Count Lymph % (Auto) [place] % (Auto) 8.1 H Lymph # [place] # Baso # Seg Neutrophils % 71.3 H Seg Neuts % (Manual) Lymphocytes % (Manual) Monocytes % (Manual) Eosinophils % (Manual) Basophils % (Manual) Nucleated RBC % Seg Neutrophils # Seg Neutrophils # Man Lymphocytes # (Manual) Monocytes # (Manual) Eosinophils # (Manual) Basophils # (Manual) PT INR Fibrinogen dRVVT Confirm Interp Factor V Activity POC ABG pH POC ABG pCO2 POC ABG pO2 ABG pO2 ABG HCO3 ABG Base Excess ABG Hemoglobin Oxyhemoglobin Sodium Potassium Chloride Carbon Dioxide BUN 61 H Creatinine 3.0 H Glucose 102 H POC Glucose 113 H Lactic Acid Calcium 8.2 L Ionized Calcium Phosphorus Magnesium Direct Bilirubin AST ALT Alkaline Phosphatase 142 H Lactate Dehydrogenase Troponin T C-Reactive Protein Total Protein 5.7 L Albumin 1.5 L Prealbumin Triglycerides Cholesterol LDL Cholesterol Direct HDL Cholesterol 25-OH Vitamin D Total PTH Intact Urine pH Urine WBC (Auto) Urine Creatinine Urine Total Protein Fluid Total Protein Vancomycin Trough Rheumatoid Factor Complement C4 Miscellaneous Test Crossmatch 11/25/16 11/25/16 11/25/16 05:12 11:31 14:12 WBC RBC Hgb Hct MCV MCH MCHC RDW Plt Count Lymph % (Auto) [place] % (Auto) Lymph # [place] # Baso # Seg Neutrophils % Seg Neuts % (Manual) Lymphocytes % (Manual) Monocytes % (Manual) Eosinophils % (Manual) Basophils % (Manual) Nucleated RBC % Seg Neutrophils # Seg Neutrophils # Man Lymphocytes # (Manual) Monocytes # (Manual) Eosinophils # (Manual) Basophils # (Manual) PT INR Fibrinogen dRVVT Confirm Interp Factor V Activity POC ABG pH 7.487 H POC ABG pCO2 POC ABG pO2 153 H ABG pO2 ABG HCO3 ABG Base Excess ABG Hemoglobin Oxyhemoglobin Sodium Potassium Chloride Carbon Dioxide BUN Creatinine Glucose POC Glucose 131 H 140 H Lactic Acid Calcium Ionized Calcium Phosphorus Magnesium Direct Bilirubin AST ALT Alkaline Phosphatase Lactate Dehydrogenase Troponin T C-Reactive Protein Total Protein Albumin Prealbumin Triglycerides Cholesterol LDL Cholesterol Direct HDL Cholesterol 25-OH Vitamin D Total PTH Intact Urine pH Urine WBC (Auto) Urine Creatinine Urine Total Protein Fluid Total Protein Vancomycin Trough Rheumatoid Factor Complement C4 Miscellaneous Test Crossmatch 11/25/16 11/26/16 11/26/16 17:23 00:09 05:13 WBC RBC 2.94 L Hgb 8.4 L Hct 24.6 L MCV MCH MCHC RDW 16.4 H Plt Count Lymph % (Auto) [place] % (Auto) 12.3 H Lymph # [place] # 1.1 H Baso # Seg Neutrophils % Seg Neuts % (Manual) Lymphocytes % (Manual) Monocytes % (Manual) Eosinophils % (Manual) Basophils % (Manual) Nucleated RBC % Seg Neutrophils # Seg Neutrophils # Man Lymphocytes # (Manual) Monocytes # (Manual) Eosinophils # (Manual) Basophils # (Manual) PT INR Fibrinogen dRVVT Confirm Interp Factor V Activity POC ABG pH POC ABG pCO2 POC ABG pO2 ABG pO2 ABG HCO3 ABG Base Excess ABG Hemoglobin Oxyhemoglobin Sodium Potassium Chloride Carbon Dioxide BUN Creatinine Glucose POC Glucose 146 H 112 H Lactic Acid Calcium Ionized Calcium Phosphorus Magnesium Direct Bilirubin AST ALT Alkaline Phosphatase Lactate Dehydrogenase Troponin T C-Reactive Protein Total Protein Albumin Prealbumin Triglycerides Cholesterol LDL Cholesterol Direct HDL Cholesterol 25-OH Vitamin D Total PTH Intact Urine pH Urine WBC (Auto) Urine Creatinine Urine Total Protein Fluid Total Protein Vancomycin Trough Rheumatoid Factor Complement C4 Miscellaneous Test Crossmatch 11/26/16 11/26/16 11/26/16 05:13 05:28 11:53 WBC RBC Hgb Hct MCV MCH MCHC RDW Plt Count Lymph % (Auto) [place] % (Auto) Lymph # [place] # Baso # Seg Neutrophils % Seg Neuts % (Manual) Lymphocytes % (Manual) Monocytes % (Manual) Eosinophils % (Manual) Basophils % (Manual) Nucleated RBC % Seg Neutrophils # Seg Neutrophils # Man Lymphocytes # (Manual) Monocytes # (Manual) Eosinophils # (Manual) Basophils # (Manual) PT INR Fibrinogen dRVVT Confirm Interp Factor V Activity POC ABG pH POC ABG pCO2 POC ABG pO2 ABG pO2 ABG HCO3 ABG Base Excess ABG Hemoglobin Oxyhemoglobin Sodium Potassium Chloride 97.8 L Carbon Dioxide BUN 37 H Creatinine 2.0 H Glucose 109 H POC Glucose 117 H 111 H Lactic Acid Calcium 7.9 L Ionized Calcium Phosphorus 1.80 L D Magnesium Direct Bilirubin AST ALT Alkaline Phosphatase Lactate Dehydrogenase Troponin T C-Reactive Protein Total Protein Albumin Prealbumin Triglycerides Cholesterol LDL Cholesterol Direct HDL Cholesterol 25-OH Vitamin D Total PTH Intact Urine pH Urine WBC (Auto) Urine Creatinine Urine Total Protein Fluid Total Protein Vancomycin Trough Rheumatoid Factor Complement C4 Miscellaneous Test Crossmatch 11/26/16 11/27/16 11/27/16 17:14 04:50 06:02 WBC RBC Hgb Hct MCV MCH MCHC RDW Plt Count Lymph % (Auto) [place] % (Auto) Lymph # [place] # Baso # Seg Neutrophils % Seg Neuts % (Manual) Lymphocytes % (Manual) Monocytes % (Manual) Eosinophils % (Manual) Basophils % (Manual) Nucleated RBC % Seg Neutrophils # Seg Neutrophils # Man Lymphocytes # (Manual) Monocytes # (Manual) Eosinophils # (Manual) Basophils # (Manual) PT INR Fibrinogen dRVVT Confirm Interp Factor V Activity POC ABG pH POC ABG pCO2 POC ABG pO2 ABG pO2 75.2 L ABG HCO3 26.4 H ABG Base Excess ABG Hemoglobin 7.6 L Oxyhemoglobin 94.8 L Sodium Potassium Chloride Carbon Dioxide BUN 49 H Creatinine 2.3 H Glucose POC Glucose 115 H Lactic Acid Calcium Ionized Calcium Phosphorus 1.50 L Magnesium Direct Bilirubin AST ALT Alkaline Phosphatase Lactate Dehydrogenase Troponin T C-Reactive Protein Total Protein Albumin Prealbumin Triglycerides Cholesterol LDL Cholesterol Direct HDL Cholesterol 25-OH Vitamin D Total PTH Intact Urine pH Urine WBC (Auto) Urine Creatinine Urine Total Protein Fluid Total Protein Vancomycin Trough Rheumatoid Factor Complement C4 Miscellaneous Test Crossmatch 11/27/16 11/27/16 11/27/16 06:02 11:25 17:25 WBC 11.6 H RBC 2.75 L Hgb 7.6 L Hct 23.4 L MCV MCH MCHC RDW 16.5 H Plt Count Lymph % (Auto) [place] % (Auto) Lymph # [place] # Baso # Seg Neutrophils % Seg Neuts % (Manual) Lymphocytes % (Manual) Monocytes % (Manual) Eosinophils % (Manual) Basophils % (Manual) Nucleated RBC % Seg Neutrophils # Seg Neutrophils # Man Lymphocytes # (Manual) Monocytes # (Manual) Eosinophils # (Manual) Basophils # (Manual) PT INR Fibrinogen dRVVT Confirm Interp Factor V Activity POC ABG pH POC ABG pCO2 POC ABG pO2 ABG pO2 ABG HCO3 ABG Base Excess ABG Hemoglobin Oxyhemoglobin Sodium Potassium Chloride Carbon Dioxide BUN Creatinine Glucose POC Glucose 114 H 126 H Lactic Acid Calcium Ionized Calcium Phosphorus Magnesium Direct Bilirubin AST ALT Alkaline Phosphatase Lactate Dehydrogenase Troponin T C-Reactive Protein Total Protein Albumin Prealbumin Triglycerides Cholesterol LDL Cholesterol Direct HDL Cholesterol 25-OH Vitamin D Total PTH Intact Urine pH Urine WBC (Auto) Urine Creatinine Urine Total Protein Fluid Total Protein Vancomycin Trough Rheumatoid Factor Complement C4 Miscellaneous Test Crossmatch 11/28/16 11/28/16 11/28/16 04:45 05:33 05:44 WBC RBC Hgb Hct MCV MCH MCHC RDW Plt Count Lymph % (Auto) [place] % (Auto) Lymph # [place] # Baso # Seg Neutrophils % Seg Neuts % (Manual) Lymphocytes % (Manual) Monocytes % (Manual) Eosinophils % (Manual) Basophils % (Manual) Nucleated RBC % Seg Neutrophils # Seg Neutrophils # Man Lymphocytes # (Manual) Monocytes # (Manual) Eosinophils # (Manual) Basophils # (Manual) PT INR Fibrinogen dRVVT Confirm Interp Factor V Activity POC ABG pH POC ABG pCO2 POC ABG pO2 ABG pO2 99.3 H ABG HCO3 ABG Base Excess ABG Hemoglobin 8.3 L Oxyhemoglobin Sodium Potassium Chloride Carbon Dioxide BUN 63 H Creatinine 2.4 H Glucose 102 H POC Glucose 108 H Lactic Acid Calcium Ionized Calcium Phosphorus 1.80 L Magnesium Direct Bilirubin AST ALT Alkaline Phosphatase Lactate Dehydrogenase Troponin T C-Reactive Protein Total Protein Albumin Prealbumin Triglycerides Cholesterol LDL Cholesterol Direct HDL Cholesterol 25-OH Vitamin D Total PTH Intact Urine pH Urine WBC (Auto) Urine Creatinine Urine Total Protein Fluid Total Protein Vancomycin Trough Rheumatoid Factor Complement C4 Miscellaneous Test Crossmatch 11/28/16 11/28/16 11/28/16 12:31 16:09 23:46 WBC RBC Hgb Hct MCV MCH MCHC RDW Plt Count Lymph % (Auto) [place] % (Auto) Lymph # [place] # Baso # Seg Neutrophils % Seg Neuts % (Manual) Lymphocytes % (Manual) Monocytes % (Manual) Eosinophils % (Manual) Basophils % (Manual) Nucleated RBC % Seg Neutrophils # Seg Neutrophils # Man Lymphocytes # (Manual) Monocytes # (Manual) Eosinophils # (Manual) Basophils # (Manual) PT INR Fibrinogen dRVVT Confirm Interp Factor V Activity POC ABG pH POC ABG pCO2 POC ABG pO2 ABG pO2 ABG HCO3 ABG Base Excess ABG Hemoglobin Oxyhemoglobin Sodium Potassium Chloride Carbon Dioxide BUN Creatinine Glucose POC Glucose 126 H 111 H 119 H Lactic Acid Calcium Ionized Calcium Phosphorus Magnesium Direct Bilirubin AST ALT Alkaline Phosphatase Lactate Dehydrogenase Troponin T C-Reactive Protein Total Protein Albumin Prealbumin Triglycerides Cholesterol LDL Cholesterol Direct HDL Cholesterol 25-OH Vitamin D Total PTH Intact Urine pH Urine WBC (Auto) Urine Creatinine Urine Total Protein Fluid Total Protein Vancomycin Trough Rheumatoid Factor Complement C4 Miscellaneous Test Crossmatch 11/29/16 11/29/16 11/29/16 03:33 04:52 05:10 WBC RBC Hgb Hct MCV MCH MCHC RDW Plt Count Lymph % (Auto) [place] % (Auto) Lymph # [place] # Baso # Seg Neutrophils % Seg Neuts % (Manual) Lymphocytes % (Manual) Monocytes % (Manual) Eosinophils % (Manual) Basophils % (Manual) Nucleated RBC % Seg Neutrophils # Seg Neutrophils # Man Lymphocytes # (Manual) Monocytes # (Manual) Eosinophils # (Manual) Basophils # (Manual) PT INR Fibrinogen dRVVT Confirm Interp Factor V Activity POC ABG pH POC ABG pCO2 POC ABG pO2 ABG pO2 ABG HCO3 ABG Base Excess ABG Hemoglobin 7.0 L Oxyhemoglobin 94.9 L Sodium Potassium Chloride Carbon Dioxide BUN 73 H Creatinine 2.7 H Glucose POC Glucose 108 H Lactic Acid Calcium Ionized Calcium Phosphorus Magnesium Direct Bilirubin AST ALT Alkaline Phosphatase Lactate Dehydrogenase Troponin T C-Reactive Protein Total Protein Albumin Prealbumin Triglycerides Cholesterol LDL Cholesterol Direct HDL Cholesterol 25-OH Vitamin D Total PTH Intact Urine pH Urine WBC (Auto) Urine Creatinine Urine Total Protein Fluid Total Protein Vancomycin Trough Rheumatoid Factor Complement C4 Miscellaneous Test Crossmatch 11/29/16 11/29/16 11/29/16 12:16 18:05 23:46 WBC RBC Hgb Hct MCV MCH MCHC RDW Plt Count Lymph % (Auto) [place] % (Auto) Lymph # [place] # Baso # Seg Neutrophils % Seg Neuts % (Manual) Lymphocytes % (Manual) Monocytes % (Manual) Eosinophils % (Manual) Basophils % (Manual) Nucleated RBC % Seg Neutrophils # Seg Neutrophils # Man Lymphocytes # (Manual) Monocytes # (Manual) Eosinophils # (Manual) Basophils # (Manual) PT INR Fibrinogen dRVVT Confirm Interp Factor V Activity POC ABG pH POC ABG pCO2 POC ABG pO2 ABG pO2 ABG HCO3 ABG Base Excess ABG Hemoglobin Oxyhemoglobin Sodium Potassium Chloride Carbon Dioxide BUN Creatinine Glucose POC Glucose 133 H 146 H 141 H Lactic Acid Calcium Ionized Calcium Phosphorus Magnesium Direct Bilirubin AST ALT Alkaline Phosphatase Lactate Dehydrogenase Troponin T C-Reactive Protein Total Protein Albumin Prealbumin Triglycerides Cholesterol LDL Cholesterol Direct HDL Cholesterol 25-OH Vitamin D Total PTH Intact Urine pH Urine WBC (Auto) Urine Creatinine Urine Total Protein Fluid Total Protein Vancomycin Trough Rheumatoid Factor Complement C4 Miscellaneous Test Crossmatch 11/30/16 11/30/16 11/30/16 04:17 04:17 04:32 WBC 12.0 H RBC 2.80 L Hgb 7.8 L Hct 23.6 L MCV MCH MCHC RDW 16.6 H Plt Count Lymph % (Auto) [place] % (Auto) 11.3 H Lymph # [place] # 1.4 H Baso # Seg Neutrophils % Seg Neuts % (Manual) Lymphocytes % (Manual) Monocytes % (Manual) Eosinophils % (Manual) Basophils % (Manual) Nucleated RBC % Seg Neutrophils # 8.2 H Seg Neutrophils # Man Lymphocytes # (Manual) Monocytes # (Manual) Eosinophils # (Manual) Basophils # (Manual) PT INR Fibrinogen dRVVT Confirm Interp Factor V Activity POC ABG pH POC ABG pCO2 POC ABG pO2 ABG pO2 ABG HCO3 ABG Base Excess ABG Hemoglobin Oxyhemoglobin Sodium 169 H* D Potassium 5.1 H Chloride 121.5 H Carbon Dioxide BUN 34 H Creatinine 1.3 H D Glucose 133 H POC Glucose 131 H Lactic Acid Calcium 10.3 H Ionized Calcium Phosphorus Magnesium Direct Bilirubin AST ALT Alkaline Phosphatase Lactate Dehydrogenase Troponin T C-Reactive Protein Total Protein Albumin Prealbumin Triglycerides Cholesterol LDL Cholesterol Direct HDL Cholesterol 25-OH Vitamin D Total PTH Intact Urine pH Urine WBC (Auto) Urine Creatinine Urine Total Protein Fluid Total Protein Vancomycin Trough Rheumatoid Factor Complement C4 Miscellaneous Test Crossmatch 11/30/16 11/30/16 11/30/16 05:45 11:10 17:26 WBC RBC Hgb Hct MCV MCH MCHC RDW Plt Count Lymph % (Auto) [place] % (Auto) Lymph # [place] # Baso # Seg Neutrophils % Seg Neuts % (Manual) Lymphocytes % (Manual) Monocytes % (Manual) Eosinophils % (Manual) Basophils % (Manual) Nucleated RBC % Seg Neutrophils # Seg Neutrophils # Man Lymphocytes # (Manual) Monocytes # (Manual) Eosinophils # (Manual) Basophils # (Manual) PT INR Fibrinogen dRVVT Confirm Interp Factor V Activity POC ABG pH POC ABG pCO2 POC ABG pO2 ABG pO2 ABG HCO3 ABG Base Excess ABG Hemoglobin Oxyhemoglobin Sodium Potassium Chloride Carbon Dioxide BUN 45 H Creatinine 1.6 H Glucose 131 H POC Glucose 146 H 134 H Lactic Acid Calcium Ionized Calcium Phosphorus Magnesium Direct Bilirubin AST ALT Alkaline Phosphatase Lactate Dehydrogenase Troponin T C-Reactive Protein Total Protein Albumin Prealbumin Triglycerides Cholesterol LDL Cholesterol Direct HDL Cholesterol 25-OH Vitamin D Total PTH Intact Urine pH Urine WBC (Auto) Urine Creatinine Urine Total Protein Fluid Total Protein Vancomycin Trough Rheumatoid Factor Complement C4 Miscellaneous Test Crossmatch 11/30/16 12/01/16 12/01/16 23:35 00:06 03:35 WBC RBC Hgb Hct MCV MCH MCHC RDW Plt Count Lymph % (Auto) [place] % (Auto) Lymph # [place] # Baso # Seg Neutrophils % Seg Neuts % (Manual) Lymphocytes % (Manual) Monocytes % (Manual) Eosinophils % (Manual) Basophils % (Manual) Nucleated RBC % Seg Neutrophils # Seg Neutrophils # Man Lymphocytes # (Manual) Monocytes # (Manual) Eosinophils # (Manual) Basophils # (Manual) PT INR Fibrinogen dRVVT Confirm Interp Factor V Activity POC ABG pH POC ABG pCO2 POC ABG pO2 ABG pO2 ABG HCO3 ABG Base Excess ABG Hemoglobin 6.9 L Oxyhemoglobin Sodium Potassium Chloride Carbon Dioxide BUN 58 H Creatinine 1.8 H Glucose 146 H POC Glucose 151 H Lactic Acid Calcium Ionized Calcium Phosphorus Magnesium Direct Bilirubin AST ALT Alkaline Phosphatase Lactate Dehydrogenase Troponin T C-Reactive Protein Total Protein Albumin Prealbumin Triglycerides Cholesterol LDL Cholesterol Direct HDL Cholesterol 25-OH Vitamin D Total PTH Intact Urine pH Urine WBC (Auto) Urine Creatinine Urine Total Protein Fluid Total Protein Vancomycin Trough Rheumatoid Factor Complement C4 Miscellaneous Test Crossmatch 12/01/16 12/01/16 12/01/16 03:35 05:47 11:52 WBC 12.3 H RBC 2.82 L Hgb 7.8 L Hct 23.7 L MCV MCH MCHC RDW 16.7 H Plt Count Lymph % (Auto) [place] % (Auto) 9.8 H Lymph # [place] # 1.2 H Baso # Seg Neutrophils % Seg Neuts % (Manual) Lymphocytes % (Manual) Monocytes % (Manual) Eosinophils % (Manual) Basophils % (Manual) Nucleated RBC % Seg Neutrophils # 8.4 H Seg Neutrophils # Man Lymphocytes # (Manual) Monocytes # (Manual) Eosinophils # (Manual) Basophils # (Manual) PT INR Fibrinogen dRVVT Confirm Interp Factor V Activity POC ABG pH POC ABG pCO2 POC ABG pO2 ABG pO2 ABG HCO3 ABG Base Excess ABG Hemoglobin Oxyhemoglobin Sodium Potassium Chloride Carbon Dioxide BUN Creatinine Glucose POC Glucose 152 H 152 H Lactic Acid Calcium Ionized Calcium Phosphorus Magnesium Direct Bilirubin AST ALT Alkaline Phosphatase Lactate Dehydrogenase Troponin T C-Reactive Protein Total Protein Albumin Prealbumin Triglycerides Cholesterol LDL Cholesterol Direct HDL Cholesterol 25-OH Vitamin D Total PTH Intact Urine pH Urine WBC (Auto) Urine Creatinine Urine Total Protein Fluid Total Protein Vancomycin Trough Rheumatoid Factor Complement C4 Miscellaneous Test Crossmatch 12/01/16 12/01/16 12/02/16 17:40 23:41 05:00 WBC RBC Hgb Hct MCV MCH MCHC RDW Plt Count Lymph % (Auto) [place] % (Auto) Lymph # [place] # Baso # Seg Neutrophils % Seg Neuts % (Manual) Lymphocytes % (Manual) Monocytes % (Manual) Eosinophils % (Manual) Basophils % (Manual) Nucleated RBC % Seg Neutrophils # Seg Neutrophils # Man Lymphocytes # (Manual) Monocytes # (Manual) Eosinophils # (Manual) Basophils # (Manual) PT INR Fibrinogen dRVVT Confirm Interp Factor V Activity POC ABG pH POC ABG pCO2 POC ABG pO2 ABG pO2 ABG HCO3 ABG Base Excess ABG Hemoglobin Oxyhemoglobin Sodium Potassium Chloride Carbon Dioxide BUN 45 H Creatinine Glucose 115 H POC Glucose 140 H 144 H Lactic Acid Calcium Ionized Calcium Phosphorus Magnesium Direct Bilirubin AST ALT Alkaline Phosphatase Lactate Dehydrogenase Troponin T C-Reactive Protein Total Protein Albumin Prealbumin Triglycerides Cholesterol LDL Cholesterol Direct HDL Cholesterol 25-OH Vitamin D Total PTH Intact Urine pH Urine WBC (Auto) Urine Creatinine Urine Total Protein Fluid Total Protein Vancomycin Trough Rheumatoid Factor Complement C4 Miscellaneous Test Crossmatch 12/02/16 12/02/16 12/02/16 05:31 11:20 17:38 WBC RBC Hgb Hct MCV MCH MCHC RDW Plt Count Lymph % (Auto) [place] % (Auto) Lymph # [place] # Baso # Seg Neutrophils % Seg Neuts % (Manual) Lymphocytes % (Manual) Monocytes % (Manual) Eosinophils % (Manual) Basophils % (Manual) Nucleated RBC % Seg Neutrophils # Seg Neutrophils # Man Lymphocytes # (Manual) Monocytes # (Manual) Eosinophils # (Manual) Basophils # (Manual) PT INR Fibrinogen dRVVT Confirm Interp Factor V Activity POC ABG pH POC ABG pCO2 POC ABG pO2 ABG pO2 ABG HCO3 ABG Base Excess ABG Hemoglobin Oxyhemoglobin Sodium Potassium Chloride Carbon Dioxide BUN Creatinine Glucose POC Glucose 136 H 177 H 139 H Lactic Acid Calcium Ionized Calcium Phosphorus Magnesium Direct Bilirubin AST ALT Alkaline Phosphatase Lactate Dehydrogenase Troponin T C-Reactive Protein Total Protein Albumin Prealbumin Triglycerides Cholesterol LDL Cholesterol Direct HDL Cholesterol 25-OH Vitamin D Total PTH Intact Urine pH Urine WBC (Auto) Urine Creatinine Urine Total Protein Fluid Total Protein Vancomycin Trough Rheumatoid Factor Complement C4 Miscellaneous Test Crossmatch 12/02/16 12/03/16 12/03/16 23:43 04:00 04:00 WBC 20.4 H RBC 2.74 L Hgb 7.4 L Hct 23.6 L MCV MCH 27 L MCHC RDW 17.1 H Plt Count Lymph % (Auto) [place] % (Auto) Lymph # [place] # Baso # Seg Neutrophils % Seg Neuts % (Manual) 31.0 L Lymphocytes % (Manual) Monocytes % (Manual) Eosinophils % (Manual) Basophils % (Manual) Nucleated RBC % Seg Neutrophils # Seg Neutrophils # Man Lymphocytes # (Manual) Monocytes # (Manual) Eosinophils # (Manual) Basophils # (Manual) PT INR Fibrinogen dRVVT Confirm Interp Factor V Activity POC ABG pH POC ABG pCO2 POC ABG pO2 ABG pO2 ABG HCO3 ABG Base Excess ABG Hemoglobin Oxyhemoglobin Sodium Potassium Chloride Carbon Dioxide BUN 61 H Creatinine 1.6 H Glucose 119 H POC Glucose 158 H Lactic Acid Calcium Ionized Calcium Phosphorus Magnesium Direct Bilirubin AST ALT Alkaline Phosphatase Lactate Dehydrogenase Troponin T C-Reactive Protein Total Protein Albumin Prealbumin Triglycerides Cholesterol LDL Cholesterol Direct HDL Cholesterol 25-OH Vitamin D Total PTH Intact Urine pH Urine WBC (Auto) Urine Creatinine Urine Total Protein Fluid Total Protein Vancomycin Trough Rheumatoid Factor Complement C4 Miscellaneous Test Crossmatch 12/03/16 12/03/16 12/03/16 05:02 12:11 18:16 WBC RBC Hgb Hct MCV MCH MCHC RDW Plt Count Lymph % (Auto) [place] % (Auto) Lymph # [place] # Baso # Seg Neutrophils % Seg Neuts % (Manual) Lymphocytes % (Manual) Monocytes % (Manual) Eosinophils % (Manual) Basophils % (Manual) Nucleated RBC % Seg Neutrophils # Seg Neutrophils # Man Lymphocytes # (Manual) Monocytes # (Manual) Eosinophils # (Manual) Basophils # (Manual) PT INR Fibrinogen dRVVT Confirm Interp Factor V Activity POC ABG pH POC ABG pCO2 POC ABG pO2 ABG pO2 ABG HCO3 ABG Base Excess ABG Hemoglobin Oxyhemoglobin Sodium Potassium Chloride Carbon Dioxide BUN Creatinine Glucose POC Glucose 146 H 157 H 124 H Lactic Acid Calcium Ionized Calcium Phosphorus Magnesium Direct Bilirubin AST ALT Alkaline Phosphatase Lactate Dehydrogenase Troponin T C-Reactive Protein Total Protein Albumin Prealbumin Triglycerides Cholesterol LDL Cholesterol Direct HDL Cholesterol 25-OH Vitamin D Total PTH Intact Urine pH Urine WBC (Auto) Urine Creatinine Urine Total Protein Fluid Total Protein Vancomycin Trough Rheumatoid Factor Complement C4 Miscellaneous Test Crossmatch 12/03/16 12/04/16 12/04/16 23:41 04:00 04:45 WBC RBC Hgb Hct MCV MCH MCHC RDW Plt Count Lymph % (Auto) [place] % (Auto) Lymph # [place] # Baso # Seg Neutrophils % Seg Neuts % (Manual) Lymphocytes % (Manual) Monocytes % (Manual) Eosinophils % (Manual) Basophils % (Manual) Nucleated RBC % Seg Neutrophils # Seg Neutrophils # Man Lymphocytes # (Manual) Monocytes # (Manual) Eosinophils # (Manual) Basophils # (Manual) PT INR Fibrinogen dRVVT Confirm Interp Factor V Activity POC ABG pH POC ABG pCO2 POC ABG pO2 ABG pO2 ABG HCO3 ABG Base Excess ABG Hemoglobin Oxyhemoglobin Sodium Potassium Chloride Carbon Dioxide BUN 76 H Creatinine 1.6 H Glucose POC Glucose 130 H 136 H Lactic Acid Calcium Ionized Calcium Phosphorus Magnesium Direct Bilirubin AST ALT Alkaline Phosphatase 155 H Lactate Dehydrogenase Troponin T C-Reactive Protein Total Protein 5.5 L Albumin 1.5 L Prealbumin Triglycerides Cholesterol LDL Cholesterol Direct HDL Cholesterol 25-OH Vitamin D Total PTH Intact Urine pH Urine WBC (Auto) Urine Creatinine Urine Total Protein Fluid Total Protein Vancomycin Trough Rheumatoid Factor Complement C4 Miscellaneous Test Crossmatch 12/04/16 12/04/16 12/05/16 12:08 17:23 00:10 WBC RBC Hgb Hct MCV MCH MCHC RDW Plt Count Lymph % (Auto) [place] % (Auto) Lymph # [place] # Baso # Seg Neutrophils % Seg Neuts % (Manual) Lymphocytes % (Manual) Monocytes % (Manual) Eosinophils % (Manual) Basophils % (Manual) Nucleated RBC % Seg Neutrophils # Seg Neutrophils # Man Lymphocytes # (Manual) Monocytes # (Manual) Eosinophils # (Manual) Basophils # (Manual) PT INR Fibrinogen dRVVT Confirm Interp Factor V Activity POC ABG pH POC ABG pCO2 POC ABG pO2 ABG pO2 ABG HCO3 ABG Base Excess ABG Hemoglobin Oxyhemoglobin Sodium Potassium Chloride Carbon Dioxide BUN Creatinine Glucose POC Glucose 114 H 129 H 124 H Lactic Acid Calcium Ionized Calcium Phosphorus Magnesium Direct Bilirubin AST ALT Alkaline Phosphatase Lactate Dehydrogenase Troponin T C-Reactive Protein Total Protein Albumin Prealbumin Triglycerides Cholesterol LDL Cholesterol Direct HDL Cholesterol 25-OH Vitamin D Total PTH Intact Urine pH Urine WBC (Auto) Urine Creatinine Urine Total Protein Fluid Total Protein Vancomycin Trough Rheumatoid Factor Complement C4 Miscellaneous Test Crossmatch 12/05/16 12/05/16 12/05/16 05:00 05:00 05:18 WBC RBC Hgb Hct MCV MCH MCHC RDW Plt Count Lymph % (Auto) [place] % (Auto) Lymph # [place] # Baso # Seg Neutrophils % Seg Neuts % (Manual) Lymphocytes % (Manual) Monocytes % (Manual) Eosinophils % (Manual) Basophils % (Manual) Nucleated RBC % Seg Neutrophils # Seg Neutrophils # Man Lymphocytes # (Manual) Monocytes # (Manual) Eosinophils # (Manual) Basophils # (Manual) PT INR Fibrinogen dRVVT Confirm Interp Factor V Activity POC ABG pH POC ABG pCO2 POC ABG pO2 ABG pO2 ABG HCO3 ABG Base Excess ABG Hemoglobin Oxyhemoglobin Sodium Potassium Chloride Carbon Dioxide 21 L BUN 85 H Creatinine 1.9 H Glucose 131 H POC Glucose 154 H Lactic Acid Calcium Ionized Calcium Phosphorus Magnesium Direct Bilirubin AST ALT Alkaline Phosphatase Lactate Dehydrogenase Troponin T C-Reactive Protein 19.30 H Total Protein Albumin Prealbumin Triglycerides Cholesterol LDL Cholesterol Direct HDL Cholesterol 25-OH Vitamin D Total PTH Intact Urine pH Urine WBC (Auto) Urine Creatinine Urine Total Protein Fluid Total Protein Vancomycin Trough Rheumatoid Factor Complement C4 Miscellaneous Test Crossmatch 12/05/16 12/05/16 12/05/16 11:43 17:46 23:25 WBC RBC Hgb Hct MCV MCH MCHC RDW Plt Count Lymph % (Auto) [place] % (Auto) Lymph # [place] # Baso # Seg Neutrophils % Seg Neuts % (Manual) Lymphocytes % (Manual) Monocytes % (Manual) Eosinophils % (Manual) Basophils % (Manual) Nucleated RBC % Seg Neutrophils # Seg Neutrophils # Man Lymphocytes # (Manual) Monocytes # (Manual) Eosinophils # (Manual) Basophils # (Manual) PT INR Fibrinogen dRVVT Confirm Interp Factor V Activity POC ABG pH POC ABG pCO2 POC ABG pO2 ABG pO2 ABG HCO3 ABG Base Excess ABG Hemoglobin Oxyhemoglobin Sodium Potassium Chloride Carbon Dioxide BUN Creatinine Glucose POC Glucose 117 H 113 H 111 H Lactic Acid Calcium Ionized Calcium Phosphorus Magnesium Direct Bilirubin AST ALT Alkaline Phosphatase Lactate Dehydrogenase Troponin T C-Reactive Protein Total Protein Albumin Prealbumin Triglycerides Cholesterol LDL Cholesterol Direct HDL Cholesterol 25-OH Vitamin D Total PTH Intact Urine pH Urine WBC (Auto) Urine Creatinine Urine Total Protein Fluid Total Protein Vancomycin Trough Rheumatoid Factor Complement C4 Miscellaneous Test Crossmatch 12/05/16 12/06/16 12/06/16 Unknown 04:58 06:00 WBC RBC Hgb Hct MCV MCH MCHC RDW Plt Count Lymph % (Auto) [place] % (Auto) Lymph # [place] # Baso # Seg Neutrophils % Seg Neuts % (Manual) Lymphocytes % (Manual) Monocytes % (Manual) Eosinophils % (Manual) Basophils % (Manual) Nucleated RBC % Seg Neutrophils # Seg Neutrophils # Man Lymphocytes # (Manual) Monocytes # (Manual) Eosinophils # (Manual) Basophils # (Manual) PT INR Fibrinogen dRVVT Confirm Interp Factor V Activity POC ABG pH POC ABG pCO2 POC ABG pO2 ABG pO2 75.2 L ABG HCO3 ABG Base Excess -3.4 L ABG Hemoglobin 7.4 L Oxyhemoglobin 94.5 L Sodium Potassium Chloride Carbon Dioxide 20 L BUN 99 H Creatinine 2.1 H Glucose 126 H POC Glucose 145 H Lactic Acid Calcium Ionized Calcium Phosphorus 4.80 H Magnesium Direct Bilirubin AST ALT Alkaline Phosphatase Lactate Dehydrogenase Troponin T C-Reactive Protein Total Protein Albumin Prealbumin Triglycerides Cholesterol LDL Cholesterol Direct HDL Cholesterol 25-OH Vitamin D Total PTH Intact Urine pH Urine WBC (Auto) Urine Creatinine Urine Total Protein Fluid Total Protein Vancomycin Trough Rheumatoid Factor Complement C4 Miscellaneous Test Crossmatch 12/06/16 12/06/16 12/06/16 06:46 11:54 17:55 WBC RBC Hgb 8.3 L Hct 26.4 L MCV MCH MCHC RDW Plt Count Lymph % (Auto) [place] % (Auto) Lymph # [place] # Baso # Seg Neutrophils % Seg Neuts % (Manual) Lymphocytes % (Manual) Monocytes % (Manual) Eosinophils % (Manual) Basophils % (Manual) Nucleated RBC % Seg Neutrophils # Seg Neutrophils # Man Lymphocytes # (Manual) Monocytes # (Manual) Eosinophils # (Manual) Basophils # (Manual) PT INR Fibrinogen dRVVT Confirm Interp Factor V Activity POC ABG pH POC ABG pCO2 POC ABG pO2 ABG pO2 ABG HCO3 ABG Base Excess ABG Hemoglobin Oxyhemoglobin Sodium Potassium Chloride Carbon Dioxide BUN Creatinine Glucose POC Glucose 126 H 157 H Lactic Acid Calcium Ionized Calcium Phosphorus Magnesium Direct Bilirubin AST ALT Alkaline Phosphatase Lactate Dehydrogenase Troponin T C-Reactive Protein Total Protein Albumin Prealbumin Triglycerides Cholesterol LDL Cholesterol Direct HDL Cholesterol 25-OH Vitamin D Total PTH Intact Urine pH Urine WBC (Auto) Urine Creatinine Urine Total Protein Fluid Total Protein Vancomycin Trough Rheumatoid Factor Complement C4 Miscellaneous Test Crossmatch 12/06/16 12/07/16 12/07/16 23:59 05:34 06:30 WBC RBC Hgb Hct MCV MCH MCHC RDW Plt Count Lymph % (Auto) [place] % (Auto) Lymph # [place] # Baso # Seg Neutrophils % Seg Neuts % (Manual) Lymphocytes % (Manual) Monocytes % (Manual) Eosinophils % (Manual) Basophils % (Manual) Nucleated RBC % Seg Neutrophils # Seg Neutrophils # Man Lymphocytes # (Manual) Monocytes # (Manual) Eosinophils # (Manual) Basophils # (Manual) PT INR Fibrinogen dRVVT Confirm Interp Factor V Activity POC ABG pH POC ABG pCO2 POC ABG pO2 ABG pO2 ABG HCO3 ABG Base Excess ABG Hemoglobin Oxyhemoglobin Sodium Potassium Chloride Carbon Dioxide BUN 67 H Creatinine 1.4 H Glucose 126 H POC Glucose 129 H 129 H Lactic Acid Calcium Ionized Calcium Phosphorus Magnesium Direct Bilirubin AST ALT Alkaline Phosphatase Lactate Dehydrogenase Troponin T C-Reactive Protein Total Protein Albumin Prealbumin Triglycerides Cholesterol LDL Cholesterol Direct HDL Cholesterol 25-OH Vitamin D Total PTH Intact Urine pH Urine WBC (Auto) Urine Creatinine Urine Total Protein Fluid Total Protein Vancomycin Trough Rheumatoid Factor Complement C4 Miscellaneous Test Crossmatch 12/07/16 12/07/16 12/07/16 06:30 08:00 09:45 WBC 18.8 H RBC 2.52 L Hgb 6.9 L 6.8 L Hct 21.2 L 21.1 L MCV MCH 27 L MCHC RDW 18.0 H Plt Count Lymph % (Auto) [place] % (Auto) 9.9 H Lymph # [place] # 1.9 H Baso # Seg Neutrophils % 71.8 H Seg Neuts % (Manual) Lymphocytes % (Manual) Monocytes % (Manual) Eosinophils % (Manual) Basophils % (Manual) Nucleated RBC % Seg Neutrophils # 13.5 H Seg Neutrophils # Man Lymphocytes # (Manual) Monocytes # (Manual) Eosinophils # (Manual) Basophils # (Manual) PT INR Fibrinogen dRVVT Confirm Interp Factor V Activity POC ABG pH POC ABG pCO2 POC ABG pO2 ABG pO2 ABG HCO3 ABG Base Excess ABG Hemoglobin Oxyhemoglobin Sodium Potassium Chloride Carbon Dioxide BUN Creatinine Glucose POC Glucose Lactic Acid Calcium Ionized Calcium Phosphorus Magnesium Direct Bilirubin AST ALT Alkaline Phosphatase Lactate Dehydrogenase Troponin T C-Reactive Protein Total Protein Albumin Prealbumin Triglycerides Cholesterol LDL Cholesterol Direct HDL Cholesterol 25-OH Vitamin D Total PTH Intact Urine pH Urine WBC (Auto) Urine Creatinine Urine Total Protein Fluid Total Protein Vancomycin Trough Rheumatoid Factor Complement C4 Miscellaneous Test Crossmatch See Detail 12/07/16 12/07/16 12/07/16 11:44 18:19 23:59 WBC RBC Hgb Hct MCV MCH MCHC RDW Plt Count Lymph % (Auto) [place] % (Auto) Lymph # [place] # Baso # Seg Neutrophils % Seg Neuts % (Manual) Lymphocytes % (Manual) Monocytes % (Manual) Eosinophils % (Manual) Basophils % (Manual) Nucleated RBC % Seg Neutrophils # Seg Neutrophils # Man Lymphocytes # (Manual) Monocytes # (Manual) Eosinophils # (Manual) Basophils # (Manual) PT INR Fibrinogen dRVVT Confirm Interp Factor V Activity POC ABG pH POC ABG pCO2 POC ABG pO2 ABG pO2 ABG HCO3 ABG Base Excess ABG Hemoglobin Oxyhemoglobin Sodium Potassium Chloride Carbon Dioxide BUN Creatinine Glucose POC Glucose 137 H 138 H 133 H Lactic Acid Calcium Ionized Calcium Phosphorus Magnesium Direct Bilirubin AST ALT Alkaline Phosphatase Lactate Dehydrogenase Troponin T C-Reactive Protein Total Protein Albumin Prealbumin Triglycerides Cholesterol LDL Cholesterol Direct HDL Cholesterol 25-OH Vitamin D Total PTH Intact Urine pH Urine WBC (Auto) Urine Creatinine Urine Total Protein Fluid Total Protein Vancomycin Trough Rheumatoid Factor Complement C4 Miscellaneous Test Crossmatch 12/08/16 12/08/16 12/08/16 05:25 05:30 05:30 WBC 23.8 H RBC 2.88 L Hgb 8.1 L Hct 24.3 L MCV MCH MCHC RDW 16.7 H Plt Count Lymph % (Auto) [place] % (Auto) Lymph # [place] # Baso # Seg Neutrophils % Seg Neuts % (Manual) 76.0 H Lymphocytes % (Manual) 9.0 L Monocytes % (Manual) 9.0 H Eosinophils % (Manual) Basophils % (Manual) Nucleated RBC % Seg Neutrophils # Seg Neutrophils # Man 18.1 H Lymphocytes # (Manual) Monocytes # (Manual) 2.1 H Eosinophils # (Manual) Basophils # (Manual) PT INR Fibrinogen dRVVT Confirm Interp Factor V Activity POC ABG pH POC ABG pCO2 POC ABG pO2 ABG pO2 ABG HCO3 ABG Base Excess ABG Hemoglobin Oxyhemoglobin Sodium Potassium Chloride Carbon Dioxide 21 L BUN 76 H Creatinine 1.6 H Glucose 133 H POC Glucose 177 H Lactic Acid Calcium Ionized Calcium Phosphorus Magnesium Direct Bilirubin AST ALT Alkaline Phosphatase Lactate Dehydrogenase Troponin T C-Reactive Protein Total Protein Albumin Prealbumin Triglycerides Cholesterol LDL Cholesterol Direct HDL Cholesterol 25-OH Vitamin D Total PTH Intact Urine pH Urine WBC (Auto) Urine Creatinine Urine Total Protein Fluid Total Protein Vancomycin Trough Rheumatoid Factor Complement C4 Miscellaneous Test Crossmatch 12/08/16 12/08/16 12/09/16 11:45 18:00 00:00 WBC RBC Hgb Hct MCV MCH MCHC RDW Plt Count Lymph % (Auto) [place] % (Auto) Lymph # [place] # Baso # Seg Neutrophils % Seg Neuts % (Manual) Lymphocytes % (Manual) Monocytes % (Manual) Eosinophils % (Manual) Basophils % (Manual) Nucleated RBC % Seg Neutrophils # Seg Neutrophils # Man Lymphocytes # (Manual) Monocytes # (Manual) Eosinophils # (Manual) Basophils # (Manual) PT INR Fibrinogen dRVVT Confirm Interp Factor V Activity POC ABG pH POC ABG pCO2 POC ABG pO2 ABG pO2 ABG HCO3 ABG Base Excess ABG Hemoglobin Oxyhemoglobin Sodium Potassium Chloride Carbon Dioxide BUN Creatinine Glucose POC Glucose 163 H 123 H 137 H Lactic Acid Calcium Ionized Calcium Phosphorus Magnesium Direct Bilirubin AST ALT Alkaline Phosphatase Lactate Dehydrogenase Troponin T C-Reactive Protein Total Protein Albumin Prealbumin Triglycerides Cholesterol LDL Cholesterol Direct HDL Cholesterol 25-OH Vitamin D Total PTH Intact Urine pH Urine WBC (Auto) Urine Creatinine Urine Total Protein Fluid Total Protein Vancomycin Trough Rheumatoid Factor Complement C4 Miscellaneous Test Crossmatch 12/09/16 12/09/16 12/09/16 05:34 06:00 06:00 WBC 15.5 H RBC 2.87 L Hgb 8.0 L Hct 24.2 L MCV MCH MCHC RDW 17.2 H Plt Count Lymph % (Auto) [place] % (Auto) 11.6 H Lymph # [place] # 1.8 H Baso # Seg Neutrophils % 70.8 H Seg Neuts % (Manual) Lymphocytes % (Manual) Monocytes % (Manual) Eosinophils % (Manual) Basophils % (Manual) Nucleated RBC % Seg Neutrophils # 11.0 H Seg Neutrophils # Man Lymphocytes # (Manual) Monocytes # (Manual) Eosinophils # (Manual) Basophils # (Manual) PT INR Fibrinogen dRVVT Confirm Interp Factor V Activity POC ABG pH POC ABG pCO2 POC ABG pO2 ABG pO2 ABG HCO3 ABG Base Excess ABG Hemoglobin Oxyhemoglobin Sodium Potassium Chloride Carbon Dioxide BUN 51 H Creatinine Glucose 117 H POC Glucose 136 H Lactic Acid Calcium Ionized Calcium Phosphorus Magnesium Direct Bilirubin AST ALT Alkaline Phosphatase Lactate Dehydrogenase Troponin T C-Reactive Protein Total Protein Albumin Prealbumin Triglycerides Cholesterol LDL Cholesterol Direct HDL Cholesterol 25-OH Vitamin D Total PTH Intact Urine pH Urine WBC (Auto) Urine Creatinine Urine Total Protein Fluid Total Protein Vancomycin Trough Rheumatoid Factor Complement C4 Miscellaneous Test Crossmatch 12/09/16 12/09/16 12/09/16 12:29 17:52 23:10 WBC RBC Hgb Hct MCV MCH MCHC RDW Plt Count Lymph % (Auto) [place] % (Auto) Lymph # [place] # Baso # Seg Neutrophils % Seg Neuts % (Manual) Lymphocytes % (Manual) Monocytes % (Manual) Eosinophils % (Manual) Basophils % (Manual) Nucleated RBC % Seg Neutrophils # Seg Neutrophils # Man Lymphocytes # (Manual) Monocytes # (Manual) Eosinophils # (Manual) Basophils # (Manual) PT INR Fibrinogen dRVVT Confirm Interp Factor V Activity POC ABG pH POC ABG pCO2 POC ABG pO2 ABG pO2 ABG HCO3 ABG Base Excess ABG Hemoglobin Oxyhemoglobin Sodium Potassium Chloride Carbon Dioxide BUN Creatinine Glucose POC Glucose 139 H 140 H 129 H Lactic Acid Calcium Ionized Calcium Phosphorus Magnesium Direct Bilirubin AST ALT Alkaline Phosphatase Lactate Dehydrogenase Troponin T C-Reactive Protein Total Protein Albumin Prealbumin Triglycerides Cholesterol LDL Cholesterol Direct HDL Cholesterol 25-OH Vitamin D Total PTH Intact Urine pH Urine WBC (Auto) Urine Creatinine Urine Total Protein Fluid Total Protein Vancomycin Trough Rheumatoid Factor Complement C4 Miscellaneous Test Crossmatch 12/10/16 12/10/16 12/10/16 05:00 05:00 06:54 WBC 15.7 H RBC 2.87 L Hgb 8.2 L Hct 24.4 L MCV MCH MCHC RDW 17.2 H Plt Count Lymph % (Auto) [place] % (Auto) 8.3 H Lymph # [place] # 1.3 H Baso # Seg Neutrophils % 72.8 H Seg Neuts % (Manual) Lymphocytes % (Manual) Monocytes % (Manual) Eosinophils % (Manual) Basophils % (Manual) Nucleated RBC % Seg Neutrophils # 11.4 H Seg Neutrophils # Man Lymphocytes # (Manual) Monocytes # (Manual) Eosinophils # (Manual) Basophils # (Manual) PT INR Fibrinogen dRVVT Confirm Interp Factor V Activity POC ABG pH POC ABG pCO2 POC ABG pO2 ABG pO2 ABG HCO3 ABG Base Excess ABG Hemoglobin Oxyhemoglobin Sodium Potassium Chloride Carbon Dioxide BUN 64 H Creatinine 1.4 H Glucose 134 H POC Glucose 154 H Lactic Acid Calcium Ionized Calcium Phosphorus Magnesium Direct Bilirubin AST ALT Alkaline Phosphatase Lactate Dehydrogenase Troponin T C-Reactive Protein Total Protein Albumin Prealbumin Triglycerides Cholesterol LDL Cholesterol Direct HDL Cholesterol 25-OH Vitamin D Total PTH Intact Urine pH Urine WBC (Auto) Urine Creatinine Urine Total Protein Fluid Total Protein Vancomycin Trough Rheumatoid Factor Complement C4 Miscellaneous Test Crossmatch 12/10/16 12/10/16 12/10/16 11:58 17:29 23:52 WBC RBC Hgb Hct MCV MCH MCHC RDW Plt Count Lymph % (Auto) [place] % (Auto) Lymph # [place] # Baso # Seg Neutrophils % Seg Neuts % (Manual) Lymphocytes % (Manual) Monocytes % (Manual) Eosinophils % (Manual) Basophils % (Manual) Nucleated RBC % Seg Neutrophils # Seg Neutrophils # Man Lymphocytes # (Manual) Monocytes # (Manual) Eosinophils # (Manual) Basophils # (Manual) PT INR Fibrinogen dRVVT Confirm Interp Factor V Activity POC ABG pH POC ABG pCO2 POC ABG pO2 ABG pO2 ABG HCO3 ABG Base Excess ABG Hemoglobin Oxyhemoglobin Sodium Potassium Chloride Carbon Dioxide BUN Creatinine Glucose POC Glucose 144 H 163 H 125 H Lactic Acid Calcium Ionized Calcium Phosphorus Magnesium Direct Bilirubin AST ALT Alkaline Phosphatase Lactate Dehydrogenase Troponin T C-Reactive Protein Total Protein Albumin Prealbumin Triglycerides Cholesterol LDL Cholesterol Direct HDL Cholesterol 25-OH Vitamin D Total PTH Intact Urine pH Urine WBC (Auto) Urine Creatinine Urine Total Protein Fluid Total Protein Vancomycin Trough Rheumatoid Factor Complement C4 Miscellaneous Test Crossmatch 12/11/16 12/11/16 12/11/16 05:38 06:30 06:30 WBC 14.4 H RBC 2.76 L Hgb 7.7 L Hct 23.4 L MCV MCH MCHC RDW 17.2 H Plt Count Lymph % (Auto) [place] % (Auto) 8.8 H Lymph # [place] # 1.3 H Baso # Seg Neutrophils % 72.5 H Seg Neuts % (Manual) Lymphocytes % (Manual) Monocytes % (Manual) Eosinophils % (Manual) Basophils % (Manual) Nucleated RBC % Seg Neutrophils # 10.5 H Seg Neutrophils # Man Lymphocytes # (Manual) Monocytes # (Manual) Eosinophils # (Manual) Basophils # (Manual) PT INR Fibrinogen dRVVT Confirm Interp Factor V Activity POC ABG pH POC ABG pCO2 POC ABG pO2 ABG pO2 ABG HCO3 ABG Base Excess ABG Hemoglobin Oxyhemoglobin Sodium Potassium Chloride Carbon Dioxide BUN 43 H Creatinine Glucose 124 H POC Glucose 141 H Lactic Acid Calcium 8.3 L Ionized Calcium Phosphorus Magnesium 1.60 L Direct Bilirubin AST ALT Alkaline Phosphatase Lactate Dehydrogenase Troponin T C-Reactive Protein Total Protein Albumin Prealbumin Triglycerides Cholesterol LDL Cholesterol Direct HDL Cholesterol 25-OH Vitamin D Total PTH Intact Urine pH Urine WBC (Auto) Urine Creatinine Urine Total Protein Fluid Total Protein Vancomycin Trough Rheumatoid Factor Complement C4 Miscellaneous Test Crossmatch 12/11/16 12/11/16 12/11/16 11:15 17:59 23:48 WBC RBC Hgb Hct MCV MCH MCHC RDW Plt Count Lymph % (Auto) [place] % (Auto) Lymph # [place] # Baso # Seg Neutrophils % Seg Neuts % (Manual) Lymphocytes % (Manual) Monocytes % (Manual) Eosinophils % (Manual) Basophils % (Manual) Nucleated RBC % Seg Neutrophils # Seg Neutrophils # Man Lymphocytes # (Manual) Monocytes # (Manual) Eosinophils # (Manual) Basophils # (Manual) PT INR Fibrinogen dRVVT Confirm Interp Factor V Activity POC ABG pH POC ABG pCO2 POC ABG pO2 ABG pO2 ABG HCO3 ABG Base Excess ABG Hemoglobin Oxyhemoglobin Sodium Potassium Chloride Carbon Dioxide BUN Creatinine Glucose POC Glucose 188 H 106 H 119 H Lactic Acid Calcium Ionized Calcium Phosphorus Magnesium Direct Bilirubin AST ALT Alkaline Phosphatase Lactate Dehydrogenase Troponin T C-Reactive Protein Total Protein Albumin Prealbumin Triglycerides Cholesterol LDL Cholesterol Direct HDL Cholesterol 25-OH Vitamin D Total PTH Intact Urine pH Urine WBC (Auto) Urine Creatinine Urine Total Protein Fluid Total Protein Vancomycin Trough Rheumatoid Factor Complement C4 Miscellaneous Test Crossmatch 12/12/16 12/12/16 12/12/16 05:00 06:01 12:20 WBC 16.7 H RBC 2.87 L Hgb 8.0 L Hct 24.2 L MCV MCH MCHC RDW 17.6 H Plt Count Lymph % (Auto) [place] % (Auto) Lymph # [place] # 1.2 H Baso # Seg Neutrophils % 75.3 H Seg Neuts % (Manual) Lymphocytes % (Manual) Monocytes % (Manual) Eosinophils % (Manual) Basophils % (Manual) Nucleated RBC % Seg Neutrophils # 12.6 H Seg Neutrophils # Man Lymphocytes # (Manual) Monocytes # (Manual) Eosinophils # (Manual) Basophils # (Manual) PT INR Fibrinogen dRVVT Confirm Interp Factor V Activity POC ABG pH POC ABG pCO2 POC ABG pO2 ABG pO2 ABG HCO3 ABG Base Excess ABG Hemoglobin Oxyhemoglobin Sodium Potassium Chloride Carbon Dioxide BUN Creatinine Glucose POC Glucose 134 H 149 H Lactic Acid Calcium Ionized Calcium Phosphorus Magnesium Direct Bilirubin AST ALT Alkaline Phosphatase Lactate Dehydrogenase Troponin T C-Reactive Protein Total Protein Albumin Prealbumin Triglycerides Cholesterol LDL Cholesterol Direct HDL Cholesterol 25-OH Vitamin D Total PTH Intact Urine pH Urine WBC (Auto) Urine Creatinine Urine Total Protein Fluid Total Protein Vancomycin Trough Rheumatoid Factor Complement C4 Miscellaneous Test Crossmatch 12/12/16 12/12/16 12/12/16 17:38 23:01 Unknown WBC RBC Hgb Hct MCV MCH MCHC RDW Plt Count Lymph % (Auto) [place] % (Auto) Lymph # [place] # Baso # Seg Neutrophils % Seg Neuts % (Manual) Lymphocytes % (Manual) Monocytes % (Manual) Eosinophils % (Manual) Basophils % (Manual) Nucleated RBC % Seg Neutrophils # Seg Neutrophils # Man Lymphocytes # (Manual) Monocytes # (Manual) Eosinophils # (Manual) Basophils # (Manual) PT INR Fibrinogen dRVVT Confirm Interp Factor V Activity POC ABG pH POC ABG pCO2 POC ABG pO2 ABG pO2 ABG HCO3 ABG Base Excess ABG Hemoglobin Oxyhemoglobin Sodium Potassium Chloride Carbon Dioxide BUN 60 H Creatinine 1.3 H Glucose 126 H POC Glucose 127 H 144 H Lactic Acid Calcium Ionized Calcium Phosphorus Magnesium Direct Bilirubin AST ALT Alkaline Phosphatase Lactate Dehydrogenase Troponin T C-Reactive Protein Total Protein Albumin Prealbumin Triglycerides Cholesterol LDL Cholesterol Direct HDL Cholesterol 25-OH Vitamin D Total PTH Intact Urine pH Urine WBC (Auto) Urine Creatinine Urine Total Protein Fluid Total Protein Vancomycin Trough Rheumatoid Factor Complement C4 Miscellaneous Test Crossmatch 12/13/16 12/13/16 12/13/16 04:00 04:00 05:19 WBC 18.7 H RBC 2.89 L Hgb 8.3 L Hct 24.6 L MCV MCH MCHC RDW 17.5 H Plt Count Lymph % (Auto) [place] % (Auto) Lymph # [place] # 1.3 H Baso # Seg Neutrophils % 71.5 H Seg Neuts % (Manual) Lymphocytes % (Manual) Monocytes % (Manual) Eosinophils % (Manual) Basophils % (Manual) Nucleated RBC % Seg Neutrophils # 13.4 H Seg Neutrophils # Man Lymphocytes # (Manual) Monocytes # (Manual) Eosinophils # (Manual) Basophils # (Manual) PT INR Fibrinogen dRVVT Confirm Interp Factor V Activity POC ABG pH POC ABG pCO2 POC ABG pO2 ABG pO2 ABG HCO3 ABG Base Excess ABG Hemoglobin Oxyhemoglobin Sodium Potassium Chloride Carbon Dioxide BUN 73 H Creatinine 1.5 H Glucose 141 H POC Glucose 171 H Lactic Acid Calcium Ionized Calcium Phosphorus Magnesium Direct Bilirubin AST ALT Alkaline Phosphatase Lactate Dehydrogenase Troponin T C-Reactive Protein Total Protein Albumin Prealbumin Triglycerides Cholesterol LDL Cholesterol Direct HDL Cholesterol 25-OH Vitamin D Total PTH Intact Urine pH Urine WBC (Auto) Urine Creatinine Urine Total Protein Fluid Total Protein Vancomycin Trough Rheumatoid Factor Complement C4 Miscellaneous Test Crossmatch 12/13/16 12/13/16 12/14/16 12:28 16:48 00:01 WBC RBC Hgb Hct MCV MCH MCHC RDW Plt Count Lymph % (Auto) [place] % (Auto) Lymph # [place] # Baso # Seg Neutrophils % Seg Neuts % (Manual) Lymphocytes % (Manual) Monocytes % (Manual) Eosinophils % (Manual) Basophils % (Manual) Nucleated RBC % Seg Neutrophils # Seg Neutrophils # Man Lymphocytes # (Manual) Monocytes # (Manual) Eosinophils # (Manual) Basophils # (Manual) PT INR Fibrinogen dRVVT Confirm Interp Factor V Activity POC ABG pH POC ABG pCO2 POC ABG pO2 ABG pO2 ABG HCO3 ABG Base Excess ABG Hemoglobin Oxyhemoglobin Sodium Potassium Chloride Carbon Dioxide BUN Creatinine Glucose POC Glucose 206 H 173 H 139 H Lactic Acid Calcium Ionized Calcium Phosphorus Magnesium Direct Bilirubin AST ALT Alkaline Phosphatase Lactate Dehydrogenase Troponin T C-Reactive Protein Total Protein Albumin Prealbumin Triglycerides Cholesterol LDL Cholesterol Direct HDL Cholesterol 25-OH Vitamin D Total PTH Intact Urine pH Urine WBC (Auto) Urine Creatinine Urine Total Protein Fluid Total Protein Vancomycin Trough Rheumatoid Factor Complement C4 Miscellaneous Test Crossmatch 12/14/16 12/14/16 12/14/16 05:16 06:10 11:17 WBC RBC Hgb Hct MCV MCH MCHC RDW Plt Count Lymph % (Auto) [place] % (Auto) Lymph # [place] # Baso # Seg Neutrophils % Seg Neuts % (Manual) Lymphocytes % (Manual) Monocytes % (Manual) Eosinophils % (Manual) Basophils % (Manual) Nucleated RBC % Seg Neutrophils # Seg Neutrophils # Man Lymphocytes # (Manual) Monocytes # (Manual) Eosinophils # (Manual) Basophils # (Manual) PT INR Fibrinogen dRVVT Confirm Interp Factor V Activity POC ABG pH POC ABG pCO2 POC ABG pO2 ABG pO2 ABG HCO3 ABG Base Excess ABG Hemoglobin Oxyhemoglobin Sodium Potassium Chloride Carbon Dioxide BUN 57 H Creatinine 1.4 H Glucose 135 H POC Glucose 158 H 137 H Lactic Acid Calcium Ionized Calcium Phosphorus Magnesium Direct Bilirubin AST ALT Alkaline Phosphatase Lactate Dehydrogenase Troponin T C-Reactive Protein Total Protein Albumin Prealbumin Triglycerides Cholesterol LDL Cholesterol Direct HDL Cholesterol 25-OH Vitamin D Total PTH Intact Urine pH Urine WBC (Auto) Urine Creatinine Urine Total Protein Fluid Total Protein Vancomycin Trough Rheumatoid Factor Complement C4 Miscellaneous Test Crossmatch 12/14/16 12/14/16 12/15/16 17:52 23:27 04:00 WBC RBC Hgb Hct MCV MCH MCHC RDW Plt Count Lymph % (Auto) [place] % (Auto) Lymph # [place] # Baso # Seg Neutrophils % Seg Neuts % (Manual) Lymphocytes % (Manual) Monocytes % (Manual) Eosinophils % (Manual) Basophils % (Manual) Nucleated RBC % Seg Neutrophils # Seg Neutrophils # Man Lymphocytes # (Manual) Monocytes # (Manual) Eosinophils # (Manual) Basophils # (Manual) PT INR Fibrinogen dRVVT Confirm Interp Factor V Activity POC ABG pH POC ABG pCO2 POC ABG pO2 ABG pO2 ABG HCO3 ABG Base Excess ABG Hemoglobin Oxyhemoglobin Sodium Potassium Chloride 97.9 L Carbon Dioxide BUN 75 H Creatinine 1.6 H Glucose 122 H POC Glucose 149 H 163 H Lactic Acid Calcium Ionized Calcium Phosphorus 5.20 H Magnesium Direct Bilirubin AST ALT Alkaline Phosphatase Lactate Dehydrogenase Troponin T C-Reactive Protein Total Protein Albumin Prealbumin Triglycerides Cholesterol LDL Cholesterol Direct HDL Cholesterol 25-OH Vitamin D Total PTH Intact Urine pH Urine WBC (Auto) Urine Creatinine Urine Total Protein Fluid Total Protein Vancomycin Trough Rheumatoid Factor Complement C4 Miscellaneous Test Crossmatch 12/15/16 12/15/16 12/15/16 05:50 11:24 17:01 WBC RBC Hgb Hct MCV MCH MCHC RDW Plt Count Lymph % (Auto) [place] % (Auto) Lymph # [place] # Baso # Seg Neutrophils % Seg Neuts % (Manual) Lymphocytes % (Manual) Monocytes % (Manual) Eosinophils % (Manual) Basophils % (Manual) Nucleated RBC % Seg Neutrophils # Seg Neutrophils # Man Lymphocytes # (Manual) Monocytes # (Manual) Eosinophils # (Manual) Basophils # (Manual) PT INR Fibrinogen dRVVT Confirm Interp Factor V Activity POC ABG pH POC ABG pCO2 POC ABG pO2 ABG pO2 ABG HCO3 ABG Base Excess ABG Hemoglobin Oxyhemoglobin Sodium Potassium Chloride Carbon Dioxide BUN Creatinine Glucose POC Glucose 150 H 146 H 167 H Lactic Acid Calcium Ionized Calcium Phosphorus Magnesium Direct Bilirubin AST ALT Alkaline Phosphatase Lactate Dehydrogenase Troponin T C-Reactive Protein Total Protein Albumin Prealbumin Triglycerides Cholesterol LDL Cholesterol Direct HDL Cholesterol 25-OH Vitamin D Total PTH Intact Urine pH Urine WBC (Auto) Urine Creatinine Urine Total Protein Fluid Total Protein Vancomycin Trough Rheumatoid Factor Complement C4 Miscellaneous Test Crossmatch 12/15/16 12/16/16 12/16/16 23:34 05:25 11:24 WBC RBC Hgb Hct MCV MCH MCHC RDW Plt Count Lymph % (Auto) [place] % (Auto) Lymph # [place] # Baso # Seg Neutrophils % Seg Neuts % (Manual) Lymphocytes % (Manual) Monocytes % (Manual) Eosinophils % (Manual) Basophils % (Manual) Nucleated RBC % Seg Neutrophils # Seg Neutrophils # Man Lymphocytes # (Manual) Monocytes # (Manual) Eosinophils # (Manual) Basophils # (Manual) PT INR Fibrinogen dRVVT Confirm Interp Factor V Activity POC ABG pH POC ABG pCO2 POC ABG pO2 ABG pO2 ABG HCO3 ABG Base Excess ABG Hemoglobin Oxyhemoglobin Sodium Potassium Chloride Carbon Dioxide BUN Creatinine Glucose POC Glucose 127 H 139 H 165 H Lactic Acid Calcium Ionized Calcium Phosphorus Magnesium Direct Bilirubin AST ALT Alkaline Phosphatase Lactate Dehydrogenase Troponin T C-Reactive Protein Total Protein Albumin Prealbumin Triglycerides Cholesterol LDL Cholesterol Direct HDL Cholesterol 25-OH Vitamin D Total PTH Intact Urine pH Urine WBC (Auto) Urine Creatinine Urine Total Protein Fluid Total Protein Vancomycin Trough Rheumatoid Factor Complement C4 Miscellaneous Test Crossmatch 12/16/16 12/16/16 12/16/16 15:30 16:25 17:31 WBC 17.8 H RBC 2.38 L Hgb 6.4 L Hct 20.3 L MCV MCH 27 L MCHC RDW 17.4 H Plt Count Lymph % (Auto) [place] % (Auto) Lymph # [place] # Baso # Seg Neutrophils % Seg Neuts % (Manual) Lymphocytes % (Manual) Monocytes % (Manual) 10.0 H Eosinophils % (Manual) Basophils % (Manual) Nucleated RBC % Seg Neutrophils # Seg Neutrophils # Man 8.5 H Lymphocytes # (Manual) Monocytes # (Manual) 1.8 H Eosinophils # (Manual) Basophils # (Manual) PT INR Fibrinogen dRVVT Confirm Interp Factor V Activity POC ABG pH POC ABG pCO2 POC ABG pO2 ABG pO2 ABG HCO3 ABG Base Excess ABG Hemoglobin Oxyhemoglobin Sodium Potassium Chloride Carbon Dioxide BUN Creatinine Glucose POC Glucose 176 H Lactic Acid Calcium Ionized Calcium Phosphorus Magnesium Direct Bilirubin AST ALT Alkaline Phosphatase Lactate Dehydrogenase Troponin T C-Reactive Protein Total Protein Albumin Prealbumin Triglycerides Cholesterol LDL Cholesterol Direct HDL Cholesterol 25-OH Vitamin D Total PTH Intact Urine pH Urine WBC (Auto) Urine Creatinine Urine Total Protein Fluid Total Protein Vancomycin Trough Rheumatoid Factor Complement C4 Miscellaneous Test Crossmatch See Detail 12/17/16 12/17/16 12/17/16 00:14 04:00 05:00 WBC 20.0 H RBC 2.99 L Hgb 8.5 L Hct 25.7 L MCV MCH MCHC RDW 17.2 H Plt Count Lymph % (Auto) [place] % (Auto) Lymph # [place] # Baso # Seg Neutrophils % Seg Neuts % (Manual) Lymphocytes % (Manual) Monocytes % (Manual) Eosinophils % (Manual) Basophils % (Manual) Nucleated RBC % Seg Neutrophils # Seg Neutrophils # Man Lymphocytes # (Manual) Monocytes # (Manual) Eosinophils # (Manual) Basophils # (Manual) PT INR Fibrinogen dRVVT Confirm Interp Factor V Activity POC ABG pH POC ABG pCO2 POC ABG pO2 ABG pO2 ABG HCO3 ABG Base Excess ABG Hemoglobin Oxyhemoglobin Sodium Potassium Chloride 97.7 L Carbon Dioxide BUN 73 H Creatinine 1.7 H Glucose 136 H POC Glucose 148 H Lactic Acid Calcium Ionized Calcium Phosphorus 2.20 L Magnesium 2.70 H Direct Bilirubin AST ALT Alkaline Phosphatase Lactate Dehydrogenase Troponin T C-Reactive Protein Total Protein Albumin Prealbumin Triglycerides Cholesterol LDL Cholesterol Direct HDL Cholesterol 25-OH Vitamin D Total PTH Intact Urine pH Urine WBC (Auto) Urine Creatinine Urine Total Protein Fluid Total Protein Vancomycin Trough Rheumatoid Factor Complement C4 Miscellaneous Test Crossmatch 12/17/16 12/17/16 12/17/16 05:39 12:50 16:32 WBC RBC Hgb Hct MCV MCH MCHC RDW Plt Count Lymph % (Auto) [place] % (Auto) Lymph # [place] # Baso # Seg Neutrophils % Seg Neuts % (Manual) Lymphocytes % (Manual) Monocytes % (Manual) Eosinophils % (Manual) Basophils % (Manual) Nucleated RBC % Seg Neutrophils # Seg Neutrophils # Man Lymphocytes # (Manual) Monocytes # (Manual) Eosinophils # (Manual) Basophils # (Manual) PT INR Fibrinogen dRVVT Confirm Interp Factor V Activity POC ABG pH POC ABG pCO2 POC ABG pO2 ABG pO2 ABG HCO3 ABG Base Excess ABG Hemoglobin Oxyhemoglobin Sodium Potassium Chloride Carbon Dioxide BUN Creatinine Glucose POC Glucose 162 H 146 H 169 H Lactic Acid Calcium Ionized Calcium Phosphorus Magnesium Direct Bilirubin AST ALT Alkaline Phosphatase Lactate Dehydrogenase Troponin T C-Reactive Protein Total Protein Albumin Prealbumin Triglycerides Cholesterol LDL Cholesterol Direct HDL Cholesterol 25-OH Vitamin D Total PTH Intact Urine pH Urine WBC (Auto) Urine Creatinine Urine Total Protein Fluid Total Protein Vancomycin Trough Rheumatoid Factor Complement C4 Miscellaneous Test Crossmatch 12/17/16 12/18/16 12/18/16 23:57 05:00 05:32 WBC RBC Hgb Hct MCV MCH MCHC RDW Plt Count Lymph % (Auto) [place] % (Auto) Lymph # [place] # Baso # Seg Neutrophils % Seg Neuts % (Manual) Lymphocytes % (Manual) Monocytes % (Manual) Eosinophils % (Manual) Basophils % (Manual) Nucleated RBC % Seg Neutrophils # Seg Neutrophils # Man Lymphocytes # (Manual) Monocytes # (Manual) Eosinophils # (Manual) Basophils # (Manual) PT INR Fibrinogen dRVVT Confirm Interp Factor V Activity POC ABG pH POC ABG pCO2 POC ABG pO2 ABG pO2 ABG HCO3 ABG Base Excess ABG Hemoglobin Oxyhemoglobin Sodium Potassium Chloride 97.0 L Carbon Dioxide BUN 63 H Creatinine 1.4 H Glucose 174 H POC Glucose 145 H 201 H Lactic Acid Calcium Ionized Calcium Phosphorus 1.70 L D Magnesium Direct Bilirubin AST ALT Alkaline Phosphatase 257 H Lactate Dehydrogenase Troponin T C-Reactive Protein Total Protein 5.9 L Albumin 1.8 L Prealbumin Triglycerides Cholesterol LDL Cholesterol Direct HDL Cholesterol 25-OH Vitamin D Total PTH Intact Urine pH Urine WBC (Auto) Urine Creatinine Urine Total Protein Fluid Total Protein Vancomycin Trough Rheumatoid Factor Complement C4 Miscellaneous Test Crossmatch 12/18/16 12/18/16 12/18/16 11:43 16:52 23:52 WBC RBC Hgb Hct MCV MCH MCHC RDW Plt Count Lymph % (Auto) [place] % (Auto) Lymph # [place] # Baso # Seg Neutrophils % Seg Neuts % (Manual) Lymphocytes % (Manual) Monocytes % (Manual) Eosinophils % (Manual) Basophils % (Manual) Nucleated RBC % Seg Neutrophils # Seg Neutrophils # Man Lymphocytes # (Manual) Monocytes # (Manual) Eosinophils # (Manual) Basophils # (Manual) PT INR Fibrinogen dRVVT Confirm Interp Factor V Activity POC ABG pH POC ABG pCO2 POC ABG pO2 ABG pO2 ABG HCO3 ABG Base Excess ABG Hemoglobin Oxyhemoglobin Sodium Potassium Chloride Carbon Dioxide BUN Creatinine Glucose POC Glucose 177 H 110 H 162 H Lactic Acid Calcium Ionized Calcium Phosphorus Magnesium Direct Bilirubin AST ALT Alkaline Phosphatase Lactate Dehydrogenase Troponin T C-Reactive Protein Total Protein Albumin Prealbumin Triglycerides Cholesterol LDL Cholesterol Direct HDL Cholesterol 25-OH Vitamin D Total PTH Intact Urine pH Urine WBC (Auto) Urine Creatinine Urine Total Protein Fluid Total Protein Vancomycin Trough Rheumatoid Factor Complement C4 Miscellaneous Test Crossmatch 12/19/16 12/19/16 12/19/16 05:02 05:24 09:30 WBC 20.1 H RBC 2.73 L Hgb 7.6 L Hct 23.6 L MCV MCH MCHC RDW 17.6 H Plt Count Lymph % (Auto) [place] % (Auto) Lymph # [place] # Baso # Seg Neutrophils % Seg Neuts % (Manual) Lymphocytes % (Manual) 13.0 L Monocytes % (Manual) Eosinophils % (Manual) Basophils % (Manual) Nucleated RBC % 1.0 H Seg Neutrophils # Seg Neutrophils # Man 12.9 H Lymphocytes # (Manual) Monocytes # (Manual) 1.4 H Eosinophils # (Manual) Basophils # (Manual) 0.2 H PT INR Fibrinogen dRVVT Confirm Interp Factor V Activity POC ABG pH POC ABG pCO2 POC ABG pO2 ABG pO2 ABG HCO3 ABG Base Excess ABG Hemoglobin Oxyhemoglobin Sodium Potassium Chloride 97.8 L Carbon Dioxide BUN 84 H Creatinine 1.6 H Glucose 133 H POC Glucose 134 H Lactic Acid Calcium Ionized Calcium Phosphorus Magnesium Direct Bilirubin AST ALT Alkaline Phosphatase Lactate Dehydrogenase Troponin T C-Reactive Protein Total Protein Albumin Prealbumin Triglycerides Cholesterol LDL Cholesterol Direct HDL Cholesterol 25-OH Vitamin D Total PTH Intact Urine pH Urine WBC (Auto) Urine Creatinine Urine Total Protein Fluid Total Protein Vancomycin Trough Rheumatoid Factor Complement C4 Miscellaneous Test Crossmatch 12/19/16 12/19/16 12/19/16 09:36 11:12 18:29 WBC RBC Hgb Hct MCV MCH MCHC RDW Plt Count Lymph % (Auto) [place] % (Auto) Lymph # [place] # Baso # Seg Neutrophils % Seg Neuts % (Manual) Lymphocytes % (Manual) Monocytes % (Manual) Eosinophils % (Manual) Basophils % (Manual) Nucleated RBC % Seg Neutrophils # Seg Neutrophils # Man Lymphocytes # (Manual) Monocytes # (Manual) Eosinophils # (Manual) Basophils # (Manual) PT INR Fibrinogen dRVVT Confirm Interp Factor V Activity POC ABG pH 7.503 H POC ABG pCO2 30.1 L POC ABG pO2 ABG pO2 ABG HCO3 ABG Base Excess ABG Hemoglobin Oxyhemoglobin Sodium Potassium Chloride Carbon Dioxide BUN Creatinine Glucose POC Glucose 138 H 156 H Lactic Acid Calcium Ionized Calcium Phosphorus Magnesium Direct Bilirubin AST ALT Alkaline Phosphatase Lactate Dehydrogenase Troponin T C-Reactive Protein Total Protein Albumin Prealbumin Triglycerides Cholesterol LDL Cholesterol Direct HDL Cholesterol 25-OH Vitamin D Total PTH Intact Urine pH Urine WBC (Auto) Urine Creatinine Urine Total Protein Fluid Total Protein Vancomycin Trough Rheumatoid Factor Complement C4 Miscellaneous Test Crossmatch 12/20/16 12/20/16 12/20/16 00:03 06:17 07:07 WBC RBC Hgb Hct MCV MCH MCHC RDW Plt Count Lymph % (Auto) [place] % (Auto) Lymph # [place] # Baso # Seg Neutrophils % Seg Neuts % (Manual) Lymphocytes % (Manual) Monocytes % (Manual) Eosinophils % (Manual) Basophils % (Manual) Nucleated RBC % Seg Neutrophils # Seg Neutrophils # Man Lymphocytes # (Manual) Monocytes # (Manual) Eosinophils # (Manual) Basophils # (Manual) PT INR Fibrinogen dRVVT Confirm Interp Factor V Activity POC ABG pH POC ABG pCO2 POC ABG pO2 ABG pO2 ABG HCO3 ABG Base Excess ABG Hemoglobin Oxyhemoglobin Sodium Potassium Chloride 97.1 L Carbon Dioxide 20 L BUN 97 H Creatinine 1.8 H Glucose 153 H POC Glucose 152 H 175 H Lactic Acid Calcium Ionized Calcium Phosphorus Magnesium Direct Bilirubin AST ALT Alkaline Phosphatase Lactate Dehydrogenase Troponin T C-Reactive Protein Total Protein Albumin Prealbumin Triglycerides Cholesterol LDL Cholesterol Direct HDL Cholesterol 25-OH Vitamin D Total PTH Intact Urine pH Urine WBC (Auto) Urine Creatinine Urine Total Protein Fluid Total Protein Vancomycin Trough Rheumatoid Factor Complement C4 Miscellaneous Test Crossmatch 12/20/16 12/20/16 12/20/16 12:00 17:42 23:53 WBC RBC Hgb Hct MCV MCH MCHC RDW Plt Count Lymph % (Auto) [place] % (Auto) Lymph # [place] # Baso # Seg Neutrophils % Seg Neuts % (Manual) Lymphocytes % (Manual) Monocytes % (Manual) Eosinophils % (Manual) Basophils % (Manual) Nucleated RBC % Seg Neutrophils # Seg Neutrophils # Man Lymphocytes # (Manual) Monocytes # (Manual) Eosinophils # (Manual) Basophils # (Manual) PT INR Fibrinogen dRVVT Confirm Interp Factor V Activity POC ABG pH POC ABG pCO2 POC ABG pO2 ABG pO2 ABG HCO3 ABG Base Excess ABG Hemoglobin Oxyhemoglobin Sodium Potassium Chloride Carbon Dioxide BUN Creatinine Glucose POC Glucose 141 H 156 H 132 H Lactic Acid Calcium Ionized Calcium Phosphorus Magnesium Direct Bilirubin AST ALT Alkaline Phosphatase Lactate Dehydrogenase Troponin T C-Reactive Protein Total Protein Albumin Prealbumin Triglycerides Cholesterol LDL Cholesterol Direct HDL Cholesterol 25-OH Vitamin D Total PTH Intact Urine pH Urine WBC (Auto) Urine Creatinine Urine Total Protein Fluid Total Protein Vancomycin Trough Rheumatoid Factor Complement C4 Miscellaneous Test Crossmatch 12/21/16 12/21/16 12/21/16 05:49 08:50 12:19 WBC RBC Hgb Hct MCV MCH MCHC RDW Plt Count Lymph % (Auto) [place] % (Auto) Lymph # [place] # Baso # Seg Neutrophils % Seg Neuts % (Manual) Lymphocytes % (Manual) Monocytes % (Manual) Eosinophils % (Manual) Basophils % (Manual) Nucleated RBC % Seg Neutrophils # Seg Neutrophils # Man Lymphocytes # (Manual) Monocytes # (Manual) Eosinophils # (Manual) Basophils # (Manual) PT INR Fibrinogen dRVVT Confirm Interp Factor V Activity POC ABG pH POC ABG pCO2 POC ABG pO2 ABG pO2 ABG HCO3 ABG Base Excess ABG Hemoglobin Oxyhemoglobin Sodium Potassium 5.2 H D Chloride Carbon Dioxide BUN 63 H Creatinine Glucose 122 H POC Glucose 132 H 136 H Lactic Acid Calcium 8.3 L Ionized Calcium Phosphorus Magnesium Direct Bilirubin AST ALT Alkaline Phosphatase Lactate Dehydrogenase Troponin T C-Reactive Protein Total Protein Albumin Prealbumin Triglycerides Cholesterol LDL Cholesterol Direct HDL Cholesterol 25-OH Vitamin D Total PTH Intact Urine pH Urine WBC (Auto) Urine Creatinine Urine Total Protein Fluid Total Protein Vancomycin Trough Rheumatoid Factor Complement C4 Miscellaneous Test Crossmatch 12/21/16 12/21/16 12/22/16 17:22 23:58 05:49 WBC RBC Hgb Hct MCV MCH MCHC RDW Plt Count Lymph % (Auto) [place] % (Auto) Lymph # [place] # Baso # Seg Neutrophils % Seg Neuts % (Manual) Lymphocytes % (Manual) Monocytes % (Manual) Eosinophils % (Manual) Basophils % (Manual) Nucleated RBC % Seg Neutrophils # Seg Neutrophils # Man Lymphocytes # (Manual) Monocytes # (Manual) Eosinophils # (Manual) Basophils # (Manual) PT INR Fibrinogen dRVVT Confirm Interp Factor V Activity POC ABG pH POC ABG pCO2 POC ABG pO2 ABG pO2 ABG HCO3 ABG Base Excess ABG Hemoglobin Oxyhemoglobin Sodium Potassium Chloride Carbon Dioxide BUN Creatinine Glucose POC Glucose 135 H 149 H 140 H Lactic Acid Calcium Ionized Calcium Phosphorus Magnesium Direct Bilirubin AST ALT Alkaline Phosphatase Lactate Dehydrogenase Troponin T C-Reactive Protein Total Protein Albumin Prealbumin Triglycerides Cholesterol LDL Cholesterol Direct HDL Cholesterol 25-OH Vitamin D Total PTH Intact Urine pH Urine WBC (Auto) Urine Creatinine Urine Total Protein Fluid Total Protein Vancomycin Trough Rheumatoid Factor Complement C4 Miscellaneous Test Crossmatch 12/22/16 12/22/16 12/22/16 06:10 11:17 17:31 WBC RBC Hgb Hct MCV MCH MCHC RDW Plt Count Lymph % (Auto) [place] % (Auto) Lymph # [place] # Baso # Seg Neutrophils % Seg Neuts % (Manual) Lymphocytes % (Manual) Monocytes % (Manual) Eosinophils % (Manual) Basophils % (Manual) Nucleated RBC % Seg Neutrophils # Seg Neutrophils # Man Lymphocytes # (Manual) Monocytes # (Manual) Eosinophils # (Manual) Basophils # (Manual) PT INR Fibrinogen dRVVT Confirm Interp Factor V Activity POC ABG pH POC ABG pCO2 POC ABG pO2 ABG pO2 ABG HCO3 ABG Base Excess ABG Hemoglobin Oxyhemoglobin Sodium Potassium Chloride Carbon Dioxide BUN 76 H Creatinine 1.5 H Glucose 241 H POC Glucose 193 H 148 H Lactic Acid Calcium Ionized Calcium Phosphorus Magnesium Direct Bilirubin AST ALT Alkaline Phosphatase Lactate Dehydrogenase Troponin T C-Reactive Protein Total Protein Albumin Prealbumin Triglycerides Cholesterol LDL Cholesterol Direct HDL Cholesterol 25-OH Vitamin D Total PTH Intact Urine pH Urine WBC (Auto) Urine Creatinine Urine Total Protein Fluid Total Protein Vancomycin Trough Rheumatoid Factor Complement C4 Miscellaneous Test Crossmatch 12/22/16 12/23/16 12/23/16 23:58 05:00 05:26 WBC RBC Hgb Hct MCV MCH MCHC RDW Plt Count Lymph % (Auto) [place] % (Auto) Lymph # [place] # Baso # Seg Neutrophils % Seg Neuts % (Manual) Lymphocytes % (Manual) Monocytes % (Manual) Eosinophils % (Manual) Basophils % (Manual) Nucleated RBC % Seg Neutrophils # Seg Neutrophils # Man Lymphocytes # (Manual) Monocytes # (Manual) Eosinophils # (Manual) Basophils # (Manual) PT INR Fibrinogen dRVVT Confirm Interp Factor V Activity POC ABG pH POC ABG pCO2 POC ABG pO2 ABG pO2 ABG HCO3 ABG Base Excess ABG Hemoglobin Oxyhemoglobin Sodium Potassium Chloride Carbon Dioxide BUN 49 H Creatinine Glucose 143 H POC Glucose 165 H 154 H Lactic Acid Calcium 8.2 L Ionized Calcium Phosphorus Magnesium 1.60 L Direct Bilirubin AST ALT Alkaline Phosphatase Lactate Dehydrogenase Troponin T C-Reactive Protein Total Protein Albumin Prealbumin Triglycerides Cholesterol LDL Cholesterol Direct HDL Cholesterol 25-OH Vitamin D Total PTH Intact Urine pH Urine WBC (Auto) Urine Creatinine Urine Total Protein Fluid Total Protein Vancomycin Trough Rheumatoid Factor Complement C4 Miscellaneous Test Crossmatch 12/23/16 12/23/1617 12:35 17:01 00:01 WBC RBC Hgb Hct MCV MCH MCHC RDW Plt Count Lymph % (Auto) [place] % (Auto) Lymph # [place] # Baso # Seg Neutrophils % Seg Neuts % (Manual) Lymphocytes % (Manual) Monocytes % (Manual) Eosinophils % (Manual) Basophils % (Manual) Nucleated RBC % Seg Neutrophils # Seg Neutrophils # Man Lymphocytes # (Manual) Monocytes # (Manual) Eosinophils # (Manual) Basophils # (Manual) PT INR Fibrinogen dRVVT Confirm Interp Factor V Activity POC ABG pH POC ABG pCO2 POC ABG pO2 ABG pO2 ABG HCO3 ABG Base Excess ABG Hemoglobin Oxyhemoglobin Sodium Potassium Chloride Carbon Dioxide BUN Creatinine Glucose POC Glucose 164 H 149 H 135 H Lactic Acid Calcium Ionized Calcium Phosphorus Magnesium Direct Bilirubin AST ALT Alkaline Phosphatase Lactate Dehydrogenase Troponin T C-Reactive Protein Total Protein Albumin Prealbumin Triglycerides Cholesterol LDL Cholesterol Direct HDL Cholesterol 25-OH Vitamin D Total PTH Intact Urine pH Urine WBC (Auto) Urine Creatinine Urine Total Protein Fluid Total Protein Vancomycin Trough Rheumatoid Factor Complement C4 Miscellaneous Test Crossmatch 12/24/16 12/24/16 12/24/16 05:41 07:01 11:38 WBC RBC Hgb Hct MCV MCH MCHC RDW Plt Count Lymph % (Auto) [place] % (Auto) Lymph # [place] # Baso # Seg Neutrophils % Seg Neuts % (Manual) Lymphocytes % (Manual) Monocytes % (Manual) Eosinophils % (Manual) Basophils % (Manual) Nucleated RBC % Seg Neutrophils # Seg Neutrophils # Man Lymphocytes # (Manual) Monocytes # (Manual) Eosinophils # (Manual) Basophils # (Manual) PT INR Fibrinogen dRVVT Confirm Interp Factor V Activity POC ABG pH POC ABG pCO2 POC ABG pO2 ABG pO2 ABG HCO3 ABG Base Excess ABG Hemoglobin Oxyhemoglobin Sodium Potassium Chloride Carbon Dioxide BUN 72 H Creatinine 1.3 H Glucose 130 H POC Glucose 132 H 156 H Lactic Acid Calcium 8.2 L Ionized Calcium Phosphorus Magnesium Direct Bilirubin AST ALT Alkaline Phosphatase Lactate Dehydrogenase Troponin T C-Reactive Protein Total Protein Albumin Prealbumin Triglycerides Cholesterol LDL Cholesterol Direct HDL Cholesterol 25-OH Vitamin D Total PTH Intact Urine pH Urine WBC (Auto) Urine Creatinine Urine Total Protein Fluid Total Protein Vancomycin Trough Rheumatoid Factor Complement C4 Miscellaneous Test Crossmatch 12/24/16 12/25/16 12/25/16 17:53 00:23 05:45 WBC RBC Hgb Hct MCV MCH MCHC RDW Plt Count Lymph % (Auto) [place] % (Auto) Lymph # [place] # Baso # Seg Neutrophils % Seg Neuts % (Manual) Lymphocytes % (Manual) Monocytes % (Manual) Eosinophils % (Manual) Basophils % (Manual) Nucleated RBC % Seg Neutrophils # Seg Neutrophils # Man Lymphocytes # (Manual) Monocytes # (Manual) Eosinophils # (Manual) Basophils # (Manual) PT INR Fibrinogen dRVVT Confirm Interp Factor V Activity POC ABG pH POC ABG pCO2 POC ABG pO2 ABG pO2 ABG HCO3 ABG Base Excess ABG Hemoglobin Oxyhemoglobin Sodium 146 H Potassium Chloride Carbon Dioxide BUN 51 H Creatinine Glucose 109 H POC Glucose 169 H 117 H Lactic Acid Calcium Ionized Calcium Phosphorus Magnesium Direct Bilirubin AST ALT Alkaline Phosphatase Lactate Dehydrogenase Troponin T C-Reactive Protein Total Protein Albumin Prealbumin Triglycerides Cholesterol LDL Cholesterol Direct HDL Cholesterol 25-OH Vitamin D Total PTH Intact Urine pH Urine WBC (Auto) Urine Creatinine Urine Total Protein Fluid Total Protein Vancomycin Trough Rheumatoid Factor Complement C4 Miscellaneous Test Crossmatch 12/25/16 12/25/16 12/25/16 06:43 11:29 17:14 WBC RBC Hgb Hct MCV MCH MCHC RDW Plt Count Lymph % (Auto) [place] % (Auto) Lymph # [place] # Baso # Seg Neutrophils % Seg Neuts % (Manual) Lymphocytes % (Manual) Monocytes % (Manual) Eosinophils % (Manual) Basophils % (Manual) Nucleated RBC % Seg Neutrophils # Seg Neutrophils # Man Lymphocytes # (Manual) Monocytes # (Manual) Eosinophils # (Manual) Basophils # (Manual) PT INR Fibrinogen dRVVT Confirm Interp Factor V Activity POC ABG pH POC ABG pCO2 POC ABG pO2 ABG pO2 ABG HCO3 ABG Base Excess ABG Hemoglobin Oxyhemoglobin Sodium Potassium Chloride Carbon Dioxide BUN Creatinine Glucose POC Glucose 117 H 128 H 120 H Lactic Acid Calcium Ionized Calcium Phosphorus Magnesium Direct Bilirubin AST ALT Alkaline Phosphatase Lactate Dehydrogenase Troponin T C-Reactive Protein Total Protein Albumin Prealbumin Triglycerides Cholesterol LDL Cholesterol Direct HDL Cholesterol 25-OH Vitamin D Total PTH Intact Urine pH Urine WBC (Auto) Urine Creatinine Urine Total Protein Fluid Total Protein Vancomycin Trough Rheumatoid Factor Complement C4 Miscellaneous Test Crossmatch 12/25/16 12/26/16 12/26/16 23:54 05:40 05:50 WBC 16.2 H RBC 2.32 L Hgb 6.2 L Hct 20.1 L MCV MCH 27 L MCHC RDW 18.6 H Plt Count Lymph % (Auto) [place] % (Auto) Lymph # [place] # Baso # Seg Neutrophils % Seg Neuts % (Manual) Lymphocytes % (Manual) Monocytes % (Manual) Eosinophils % (Manual) Basophils % (Manual) Nucleated RBC % Seg Neutrophils # Seg Neutrophils # Man Lymphocytes # (Manual) Monocytes # (Manual) Eosinophils # (Manual) Basophils # (Manual) PT INR Fibrinogen dRVVT Confirm Interp Factor V Activity POC ABG pH POC ABG pCO2 POC ABG pO2 ABG pO2 ABG HCO3 ABG Base Excess ABG Hemoglobin Oxyhemoglobin Sodium Potassium Chloride Carbon Dioxide BUN Creatinine Glucose POC Glucose 126 H 132 H Lactic Acid Calcium Ionized Calcium Phosphorus Magnesium Direct Bilirubin AST ALT Alkaline Phosphatase Lactate Dehydrogenase Troponin T C-Reactive Protein Total Protein Albumin Prealbumin Triglycerides Cholesterol LDL Cholesterol Direct HDL Cholesterol 25-OH Vitamin D Total PTH Intact Urine pH Urine WBC (Auto) Urine Creatinine Urine Total Protein Fluid Total Protein Vancomycin Trough Rheumatoid Factor Complement C4 Miscellaneous Test Crossmatch 12/26/16 12/26/16 12/26/16 05:50 12:17 12:33 WBC RBC Hgb Hct MCV MCH MCHC RDW Plt Count Lymph % (Auto) [place] % (Auto) Lymph # [place] # Baso # Seg Neutrophils % Seg Neuts % (Manual) Lymphocytes % (Manual) Monocytes % (Manual) Eosinophils % (Manual) Basophils % (Manual) Nucleated RBC % Seg Neutrophils # Seg Neutrophils # Man Lymphocytes # (Manual) Monocytes # (Manual) Eosinophils # (Manual) Basophils # (Manual) PT INR Fibrinogen dRVVT Confirm Interp Factor V Activity POC ABG pH POC ABG pCO2 POC ABG pO2 ABG pO2 ABG HCO3 ABG Base Excess ABG Hemoglobin Oxyhemoglobin Sodium Potassium Chloride Carbon Dioxide BUN 73 H Creatinine 1.3 H Glucose 113 H POC Glucose 117 H Lactic Acid Calcium Ionized Calcium Phosphorus Magnesium Direct Bilirubin AST ALT Alkaline Phosphatase Lactate Dehydrogenase Troponin T C-Reactive Protein Total Protein Albumin Prealbumin Triglycerides Cholesterol LDL Cholesterol Direct HDL Cholesterol 25-OH Vitamin D Total PTH Intact Urine pH Urine WBC (Auto) Urine Creatinine Urine Total Protein Fluid Total Protein Vancomycin Trough Rheumatoid Factor Complement C4 Miscellaneous Test Crossmatch See Detail 12/26/16 12/26/16 12/27/16 20:00 23:21 05:00 WBC RBC Hgb 8.4 L Hct 26.3 L D MCV MCH MCHC RDW Plt Count Lymph % (Auto) [place] % (Auto) Lymph # [place] # Baso # Seg Neutrophils % Seg Neuts % (Manual) Lymphocytes % (Manual) Monocytes % (Manual) Eosinophils % (Manual) Basophils % (Manual) Nucleated RBC % Seg Neutrophils # Seg Neutrophils # Man Lymphocytes # (Manual) Monocytes # (Manual) Eosinophils # (Manual) Basophils # (Manual) PT INR Fibrinogen dRVVT Confirm Interp Factor V Activity POC ABG pH POC ABG pCO2 POC ABG pO2 ABG pO2 ABG HCO3 ABG Base Excess ABG Hemoglobin Oxyhemoglobin Sodium Potassium Chloride Carbon Dioxide BUN 85 H Creatinine 1.6 H Glucose 118 H POC Glucose 124 H Lactic Acid Calcium Ionized Calcium Phosphorus 4.80 H Magnesium Direct Bilirubin AST ALT Alkaline Phosphatase Lactate Dehydrogenase Troponin T C-Reactive Protein Total Protein Albumin Prealbumin Triglycerides Cholesterol LDL Cholesterol Direct HDL Cholesterol 25-OH Vitamin D Total PTH Intact Urine pH Urine WBC (Auto) Urine Creatinine Urine Total Protein Fluid Total Protein Vancomycin Trough Rheumatoid Factor Complement C4 Miscellaneous Test Crossmatch 12/27/16 12/27/16 12/27/16 05:00 05:35 12:24 WBC RBC Hgb 7.6 L Hct 22.8 L MCV MCH MCHC RDW Plt Count Lymph % (Auto) [place] % (Auto) Lymph # [place] # Baso # Seg Neutrophils % Seg Neuts % (Manual) Lymphocytes % (Manual) Monocytes % (Manual) Eosinophils % (Manual) Basophils % (Manual) Nucleated RBC % Seg Neutrophils # Seg Neutrophils # Man Lymphocytes # (Manual) Monocytes # (Manual) Eosinophils # (Manual) Basophils # (Manual) PT INR Fibrinogen dRVVT Confirm Interp Factor V Activity POC ABG pH POC ABG pCO2 POC ABG pO2 ABG pO2 ABG HCO3 ABG Base Excess ABG Hemoglobin Oxyhemoglobin Sodium Potassium Chloride Carbon Dioxide BUN Creatinine Glucose POC Glucose 115 H 131 H Lactic Acid Calcium Ionized Calcium Phosphorus Magnesium Direct Bilirubin AST ALT Alkaline Phosphatase Lactate Dehydrogenase Troponin T C-Reactive Protein Total Protein Albumin Prealbumin Triglycerides Cholesterol LDL Cholesterol Direct HDL Cholesterol 25-OH Vitamin D Total PTH Intact Urine pH Urine WBC (Auto) Urine Creatinine Urine Total Protein Fluid Total Protein Vancomycin Trough Rheumatoid Factor Complement C4 Miscellaneous Test Crossmatch 12/27/16 12/28/16 12/28/16 17:16 00:18 04:00 WBC RBC Hgb Hct MCV MCH MCHC RDW Plt Count Lymph % (Auto) [place] % (Auto) Lymph # [place] # Baso # Seg Neutrophils % Seg Neuts % (Manual) Lymphocytes % (Manual) Monocytes % (Manual) Eosinophils % (Manual) Basophils % (Manual) Nucleated RBC % Seg Neutrophils # Seg Neutrophils # Man Lymphocytes # (Manual) Monocytes # (Manual) Eosinophils # (Manual) Basophils # (Manual) PT INR Fibrinogen dRVVT Confirm Interp Factor V Activity POC ABG pH POC ABG pCO2 POC ABG pO2 ABG pO2 ABG HCO3 ABG Base Excess ABG Hemoglobin Oxyhemoglobin Sodium Potassium 3.5 L Chloride Carbon Dioxide BUN 57 H Creatinine Glucose 118 H POC Glucose 136 H 120 H Lactic Acid Calcium 8.3 L Ionized Calcium Phosphorus Magnesium Direct Bilirubin AST ALT Alkaline Phosphatase Lactate Dehydrogenase Troponin T C-Reactive Protein Total Protein Albumin Prealbumin Triglycerides Cholesterol LDL Cholesterol Direct HDL Cholesterol 25-OH Vitamin D Total PTH Intact Urine pH Urine WBC (Auto) Urine Creatinine Urine Total Protein Fluid Total Protein Vancomycin Trough Rheumatoid Factor Complement C4 Miscellaneous Test Crossmatch 12/28/16 12/28/16 12/28/16 04:00 05:11 08:30 WBC 17.0 H RBC 2.58 L Hgb 7.1 L Hct 22.0 L MCV MCH MCHC RDW 17.6 H Plt Count Lymph % (Auto) 12.2 L [place] % (Auto) Lymph # [place] # 1.1 H Baso # Seg Neutrophils % 80.5 H Seg Neuts % (Manual) Lymphocytes % (Manual) Monocytes % (Manual) Eosinophils % (Manual) Basophils % (Manual) Nucleated RBC % Seg Neutrophils # 13.7 H Seg Neutrophils # Man Lymphocytes # (Manual) Monocytes # (Manual) Eosinophils # (Manual) Basophils # (Manual) PT 16.1 H INR 1.23 H Fibrinogen dRVVT Confirm Interp Factor V Activity POC ABG pH POC ABG pCO2 POC ABG pO2 ABG pO2 ABG HCO3 ABG Base Excess ABG Hemoglobin Oxyhemoglobin Sodium Potassium Chloride Carbon Dioxide BUN Creatinine Glucose POC Glucose 122 H Lactic Acid Calcium Ionized Calcium Phosphorus Magnesium Direct Bilirubin AST ALT Alkaline Phosphatase Lactate Dehydrogenase Troponin T C-Reactive Protein Total Protein Albumin Prealbumin Triglycerides Cholesterol LDL Cholesterol Direct HDL Cholesterol 25-OH Vitamin D Total PTH Intact Urine pH Urine WBC (Auto) Urine Creatinine Urine Total Protein Fluid Total Protein Vancomycin Trough Rheumatoid Factor Complement C4 Miscellaneous Test Crossmatch 1112/28/16 12/28/16 12:27 16:32 23:46 WBC RBC Hgb Hct MCV MCH MCHC RDW Plt Count Lymph % (Auto) [place] % (Auto) Lymph # [place] # Baso # Seg Neutrophils % Seg Neuts % (Manual) Lymphocytes % (Manual) Monocytes % (Manual) Eosinophils % (Manual) Basophils % (Manual) Nucleated RBC % Seg Neutrophils # Seg Neutrophils # Man Lymphocytes # (Manual) Monocytes # (Manual) Eosinophils # (Manual) Basophils # (Manual) PT INR Fibrinogen dRVVT Confirm Interp Factor V Activity POC ABG pH POC ABG pCO2 POC ABG pO2 ABG pO2 ABG HCO3 ABG Base Excess ABG Hemoglobin Oxyhemoglobin Sodium Potassium Chloride Carbon Dioxide BUN Creatinine Glucose POC Glucose 127 H 117 H 108 H Lactic Acid Calcium Ionized Calcium Phosphorus Magnesium Direct Bilirubin AST ALT Alkaline Phosphatase Lactate Dehydrogenase Troponin T C-Reactive Protein Total Protein Albumin Prealbumin Triglycerides Cholesterol LDL Cholesterol Direct HDL Cholesterol 25-OH Vitamin D Total PTH Intact Urine pH Urine WBC (Auto) Urine Creatinine Urine Total Protein Fluid Total Protein Vancomycin Trough Rheumatoid Factor Complement C4 Miscellaneous Test Crossmatch 12/29/16 12/29/16 12/29/16 05:15 05:15 05:32 WBC RBC Hgb Hct MCV MCH MCHC RDW Plt Count Lymph % (Auto) [place] % (Auto) Lymph # [place] # Baso # Seg Neutrophils % Seg Neuts % (Manual) Lymphocytes % (Manual) Monocytes % (Manual) Eosinophils % (Manual) Basophils % (Manual) Nucleated RBC % Seg Neutrophils # Seg Neutrophils # Man Lymphocytes # (Manual) Monocytes # (Manual) Eosinophils # (Manual) Basophils # (Manual) PT INR Fibrinogen dRVVT Confirm Interp Factor V Activity POC ABG pH POC ABG pCO2 POC ABG pO2 ABG pO2 ABG HCO3 ABG Base Excess ABG Hemoglobin Oxyhemoglobin Sodium Potassium Chloride Carbon Dioxide BUN 74 H Creatinine 1.6 H Glucose 111 H POC Glucose 123 H Lactic Acid Calcium Ionized Calcium Phosphorus Magnesium Direct Bilirubin AST ALT Alkaline Phosphatase Lactate Dehydrogenase Troponin T C-Reactive Protein Total Protein Albumin Prealbumin 0.110 L Triglycerides Cholesterol LDL Cholesterol Direct HDL Cholesterol 25-OH Vitamin D Total PTH Intact Urine pH Urine WBC (Auto) Urine Creatinine Urine Total Protein Fluid Total Protein Vancomycin Trough Rheumatoid Factor Complement C4 Miscellaneous Test Crossmatch 12/29/16 12/29/16 12/29/16 11:43 13:45 14:00 WBC 13.8 H RBC 2.26 L Hgb 6.3 L Hct 20.4 L MCV MCH MCHC RDW 18.3 H Plt Count Lymph % (Auto) [place] % (Auto) Lymph # [place] # 0.9 H Baso # Seg Neutrophils % 78.6 H Seg Neuts % (Manual) Lymphocytes % (Manual) Monocytes % (Manual) Eosinophils % (Manual) Basophils % (Manual) Nucleated RBC % Seg Neutrophils # 10.8 H Seg Neutrophils # Man Lymphocytes # (Manual) Monocytes # (Manual) Eosinophils # (Manual) Basophils # (Manual) PT INR Fibrinogen dRVVT Confirm Interp Factor V Activity POC ABG pH POC ABG pCO2 POC ABG pO2 ABG pO2 ABG HCO3 ABG Base Excess ABG Hemoglobin Oxyhemoglobin Sodium Potassium Chloride Carbon Dioxide BUN Creatinine Glucose POC Glucose 133 H Lactic Acid Calcium Ionized Calcium Phosphorus Magnesium Direct Bilirubin AST ALT Alkaline Phosphatase Lactate Dehydrogenase Troponin T C-Reactive Protein Total Protein Albumin Prealbumin Triglycerides Cholesterol LDL Cholesterol Direct HDL Cholesterol 25-OH Vitamin D Total PTH Intact Urine pH Urine WBC (Auto) Urine Creatinine Urine Total Protein Fluid Total Protein Vancomycin Trough Rheumatoid Factor Complement C4 Miscellaneous Test Crossmatch See Detail 12/29/16 12/29/16 12/29/16 17:03 23:15 23:22 WBC RBC Hgb 7.3 L Hct 22.3 L MCV MCH MCHC RDW Plt Count Lymph % (Auto) [place] % (Auto) Lymph # [place] # Baso # Seg Neutrophils % Seg Neuts % (Manual) Lymphocytes % (Manual) Monocytes % (Manual) Eosinophils % (Manual) Basophils % (Manual) Nucleated RBC % Seg Neutrophils # Seg Neutrophils # Man Lymphocytes # (Manual) Monocytes # (Manual) Eosinophils # (Manual) Basophils # (Manual) PT INR Fibrinogen dRVVT Confirm Interp Factor V Activity POC ABG pH POC ABG pCO2 POC ABG pO2 ABG pO2 ABG HCO3 ABG Base Excess ABG Hemoglobin Oxyhemoglobin Sodium Potassium Chloride Carbon Dioxide BUN Creatinine Glucose POC Glucose 139 H 120 H Lactic Acid Calcium Ionized Calcium Phosphorus Magnesium Direct Bilirubin AST ALT Alkaline Phosphatase Lactate Dehydrogenase Troponin T C-Reactive Protein Total Protein Albumin Prealbumin Triglycerides Cholesterol LDL Cholesterol Direct HDL Cholesterol 25-OH Vitamin D Total PTH Intact Urine pH Urine WBC (Auto) Urine Creatinine Urine Total Protein Fluid Total Protein Vancomycin Trough Rheumatoid Factor Complement C4 Miscellaneous Test Crossmatch 1112/30/16 12/30/16 04:20 04:20 05:43 WBC 15.6 H RBC 2.81 L Hgb 8.0 L Hct 24.0 L MCV MCH MCHC RDW 16.9 H Plt Count Lymph % (Auto) [place] % (Auto) Lymph # [place] # 1.0 H Baso # Seg Neutrophils % 76.2 H Seg Neuts % (Manual) Lymphocytes % (Manual) Monocytes % (Manual) Eosinophils % (Manual) Basophils % (Manual) Nucleated RBC % Seg Neutrophils # 11.9 H Seg Neutrophils # Man Lymphocytes # (Manual) Monocytes # (Manual) Eosinophils # (Manual) Basophils # (Manual) PT INR Fibrinogen dRVVT Confirm Interp Factor V Activity POC ABG pH POC ABG pCO2 POC ABG pO2 ABG pO2 ABG HCO3 ABG Base Excess ABG Hemoglobin Oxyhemoglobin Sodium Potassium Chloride Carbon Dioxide BUN 87 H Creatinine 1.8 H Glucose 119 H POC Glucose 115 H Lactic Acid Calcium Ionized Calcium Phosphorus Magnesium Direct Bilirubin AST ALT Alkaline Phosphatase Lactate Dehydrogenase Troponin T C-Reactive Protein Total Protein Albumin Prealbumin Triglycerides Cholesterol LDL Cholesterol Direct HDL Cholesterol 25-OH Vitamin D Total PTH Intact Urine pH Urine WBC (Auto) Urine Creatinine Urine Total Protein Fluid Total Protein Vancomycin Trough Rheumatoid Factor Complement C4 Miscellaneous Test Crossmatch 12/30/16 12/30/16 12/31/16 17:27 23:21 04:00 WBC RBC Hgb Hct MCV MCH MCHC RDW Plt Count Lymph % (Auto) [place] % (Auto) Lymph # [place] # Baso # Seg Neutrophils % Seg Neuts % (Manual) Lymphocytes % (Manual) Monocytes % (Manual) Eosinophils % (Manual) Basophils % (Manual) Nucleated RBC % Seg Neutrophils # Seg Neutrophils # Man Lymphocytes # (Manual) Monocytes # (Manual) Eosinophils # (Manual) Basophils # (Manual) PT INR Fibrinogen dRVVT Confirm Interp Factor V Activity POC ABG pH POC ABG pCO2 POC ABG pO2 ABG pO2 ABG HCO3 ABG Base Excess ABG Hemoglobin Oxyhemoglobin Sodium Potassium Chloride Carbon Dioxide BUN 59 H Creatinine Glucose 298 H POC Glucose 144 H 125 H Lactic Acid Calcium Ionized Calcium Phosphorus Magnesium Direct Bilirubin AST ALT Alkaline Phosphatase Lactate Dehydrogenase Troponin T C-Reactive Protein Total Protein Albumin Prealbumin Triglycerides Cholesterol LDL Cholesterol Direct HDL Cholesterol 25-OH Vitamin D Total PTH Intact Urine pH Urine WBC (Auto) Urine Creatinine Urine Total Protein Fluid Total Protein Vancomycin Trough Rheumatoid Factor Complement C4 Miscellaneous Test Crossmatch 12/31/16 12/31/16 12/31/16 05:11 12:18 18:17 WBC RBC Hgb Hct MCV MCH MCHC RDW Plt Count Lymph % (Auto) [place] % (Auto) Lymph # [place] # Baso # Seg Neutrophils % Seg Neuts % (Manual) Lymphocytes % (Manual) Monocytes % (Manual) Eosinophils % (Manual) Basophils % (Manual) Nucleated RBC % Seg Neutrophils # Seg Neutrophils # Man Lymphocytes # (Manual) Monocytes # (Manual) Eosinophils # (Manual) Basophils # (Manual) PT INR Fibrinogen dRVVT Confirm Interp Factor V Activity POC ABG pH POC ABG pCO2 POC ABG pO2 ABG pO2 ABG HCO3 ABG Base Excess ABG Hemoglobin Oxyhemoglobin Sodium Potassium Chloride Carbon Dioxide BUN Creatinine Glucose POC Glucose 167 H 125 H 133 H Lactic Acid Calcium Ionized Calcium Phosphorus Magnesium Direct Bilirubin AST ALT Alkaline Phosphatase Lactate Dehydrogenase Troponin T C-Reactive Protein Total Protein Albumin Prealbumin Triglycerides Cholesterol LDL Cholesterol Direct HDL Cholesterol 25-OH Vitamin D Total PTH Intact Urine pH Urine WBC (Auto) Urine Creatinine Urine Total Protein Fluid Total Protein Vancomycin Trough Rheumatoid Factor Complement C4 Miscellaneous Test Crossmatch 12/31/16 01/01/17 01/01/17 23:55 05:00 05:12 WBC RBC Hgb Hct MCV MCH MCHC RDW Plt Count Lymph % (Auto) [place] % (Auto) Lymph # [place] # Baso # Seg Neutrophils % Seg Neuts % (Manual) Lymphocytes % (Manual) Monocytes % (Manual) Eosinophils % (Manual) Basophils % (Manual) Nucleated RBC % Seg Neutrophils # Seg Neutrophils # Man Lymphocytes # (Manual) Monocytes # (Manual) Eosinophils # (Manual) Basophils # (Manual) PT INR Fibrinogen dRVVT Confirm Interp Factor V Activity POC ABG pH POC ABG pCO2 POC ABG pO2 ABG pO2 ABG HCO3 ABG Base Excess ABG Hemoglobin Oxyhemoglobin Sodium Potassium Chloride Carbon Dioxide BUN 76 H Creatinine 1.5 H Glucose 109 H POC Glucose 129 H 129 H Lactic Acid Calcium Ionized Calcium Phosphorus Magnesium Direct Bilirubin AST ALT Alkaline Phosphatase 536 H Lactate Dehydrogenase Troponin T C-Reactive Protein Total Protein Albumin 1.5 L Prealbumin Triglycerides Cholesterol LDL Cholesterol Direct HDL Cholesterol 25-OH Vitamin D Total PTH Intact Urine pH Urine WBC (Auto) Urine Creatinine Urine Total Protein Fluid Total Protein Vancomycin Trough Rheumatoid Factor Complement C4 Miscellaneous Test Crossmatch 01/01/17 01/01/17 01/01/17 12:25 17:01 23:32 WBC RBC Hgb Hct MCV MCH MCHC RDW Plt Count Lymph % (Auto) [place] % (Auto) Lymph # [place] # Baso # Seg Neutrophils % Seg Neuts % (Manual) Lymphocytes % (Manual) Monocytes % (Manual) Eosinophils % (Manual) Basophils % (Manual) Nucleated RBC % Seg Neutrophils # Seg Neutrophils # Man Lymphocytes # (Manual) Monocytes # (Manual) Eosinophils # (Manual) Basophils # (Manual) PT INR Fibrinogen dRVVT Confirm Interp Factor V Activity POC ABG pH POC ABG pCO2 POC ABG pO2 ABG pO2 ABG HCO3 ABG Base Excess ABG Hemoglobin Oxyhemoglobin Sodium Potassium Chloride Carbon Dioxide BUN Creatinine Glucose POC Glucose 140 H 142 H 112 H Lactic Acid Calcium Ionized Calcium Phosphorus Magnesium Direct Bilirubin AST ALT Alkaline Phosphatase Lactate Dehydrogenase Troponin T C-Reactive Protein Total Protein Albumin Prealbumin Triglycerides Cholesterol LDL Cholesterol Direct HDL Cholesterol 25-OH Vitamin D Total PTH Intact Urine pH Urine WBC (Auto) Urine Creatinine Urine Total Protein Fluid Total Protein Vancomycin Trough Rheumatoid Factor Complement C4 Miscellaneous Test Crossmatch 01/02/17 01/02/17 01/02/17 04:56 06:00 11:37 WBC RBC Hgb Hct MCV MCH MCHC RDW Plt Count Lymph % (Auto) [place] % (Auto) Lymph # [place] # Baso # Seg Neutrophils % Seg Neuts % (Manual) Lymphocytes % (Manual) Monocytes % (Manual) Eosinophils % (Manual) Basophils % (Manual) Nucleated RBC % Seg Neutrophils # Seg Neutrophils # Man Lymphocytes # (Manual) Monocytes # (Manual) Eosinophils # (Manual) Basophils # (Manual) PT INR Fibrinogen dRVVT Confirm Interp Factor V Activity POC ABG pH POC ABG pCO2 POC ABG pO2 ABG pO2 ABG HCO3 ABG Base Excess ABG Hemoglobin Oxyhemoglobin Sodium Potassium Chloride Carbon Dioxide BUN 88 H Creatinine 1.7 H Glucose 113 H POC Glucose 136 H 200 H Lactic Acid Calcium Ionized Calcium Phosphorus Magnesium Direct Bilirubin AST ALT Alkaline Phosphatase Lactate Dehydrogenase Troponin T C-Reactive Protein Total Protein Albumin Prealbumin Triglycerides Cholesterol LDL Cholesterol Direct HDL Cholesterol 25-OH Vitamin D Total PTH Intact Urine pH Urine WBC (Auto) Urine Creatinine Urine Total Protein Fluid Total Protein Vancomycin Trough Rheumatoid Factor Complement C4 Miscellaneous Test Crossmatch 01/02/17 01/02/17 01/03/17 17:42 22:52 04:54 WBC RBC Hgb Hct MCV MCH MCHC RDW Plt Count Lymph % (Auto) [place] % (Auto) Lymph # [place] # Baso # Seg Neutrophils % Seg Neuts % (Manual) Lymphocytes % (Manual) Monocytes % (Manual) Eosinophils % (Manual) Basophils % (Manual) Nucleated RBC % Seg Neutrophils # Seg Neutrophils # Man Lymphocytes # (Manual) Monocytes # (Manual) Eosinophils # (Manual) Basophils # (Manual) PT INR Fibrinogen dRVVT Confirm Interp Factor V Activity POC ABG pH POC ABG pCO2 POC ABG pO2 ABG pO2 ABG HCO3 ABG Base Excess ABG Hemoglobin Oxyhemoglobin Sodium Potassium Chloride Carbon Dioxide BUN Creatinine Glucose POC Glucose 112 H 133 H 111 H Lactic Acid Calcium Ionized Calcium Phosphorus Magnesium Direct Bilirubin AST ALT Alkaline Phosphatase Lactate Dehydrogenase Troponin T C-Reactive Protein Total Protein Albumin Prealbumin Triglycerides Cholesterol LDL Cholesterol Direct HDL Cholesterol 25-OH Vitamin D Total PTH Intact Urine pH Urine WBC (Auto) Urine Creatinine Urine Total Protein Fluid Total Protein Vancomycin Trough Rheumatoid Factor Complement C4 Miscellaneous Test Crossmatch 01/03/17 01/03/17 01/03/17 05:00 05:00 14:02 WBC 11.2 H RBC 2.56 L Hgb 7.2 L Hct 22.3 L MCV MCH MCHC RDW 17.3 H Plt Count Lymph % (Auto) [place] % (Auto) 10.0 H Lymph # [place] # 1.1 H Baso # Seg Neutrophils % 70.5 H Seg Neuts % (Manual) Lymphocytes % (Manual) Monocytes % (Manual) Eosinophils % (Manual) Basophils % (Manual) Nucleated RBC % Seg Neutrophils # 7.9 H Seg Neutrophils # Man Lymphocytes # (Manual) Monocytes # (Manual) Eosinophils # (Manual) Basophils # (Manual) PT INR Fibrinogen dRVVT Confirm Interp Factor V Activity POC ABG pH POC ABG pCO2 POC ABG pO2 ABG pO2 ABG HCO3 ABG Base Excess ABG Hemoglobin Oxyhemoglobin Sodium Potassium Chloride Carbon Dioxide BUN 60 H Creatinine 1.3 H Glucose 110 H POC Glucose 119 H Lactic Acid Calcium Ionized Calcium Phosphorus Magnesium Direct Bilirubin AST ALT Alkaline Phosphatase Lactate Dehydrogenase Troponin T C-Reactive Protein Total Protein Albumin Prealbumin Triglycerides Cholesterol LDL Cholesterol Direct HDL Cholesterol 25-OH Vitamin D Total PTH Intact Urine pH Urine WBC (Auto) Urine Creatinine Urine Total Protein Fluid Total Protein Vancomycin Trough Rheumatoid Factor Complement C4 Miscellaneous Test Crossmatch 01/03/17 01/03/17 01/04/17 18:13 23:40 05:57 WBC RBC Hgb Hct MCV MCH MCHC RDW Plt Count Lymph % (Auto) [place] % (Auto) Lymph # [place] # Baso # Seg Neutrophils % Seg Neuts % (Manual) Lymphocytes % (Manual) Monocytes % (Manual) Eosinophils % (Manual) Basophils % (Manual) Nucleated RBC % Seg Neutrophils # Seg Neutrophils # Man Lymphocytes # (Manual) Monocytes # (Manual) Eosinophils # (Manual) Basophils # (Manual) PT INR Fibrinogen dRVVT Confirm Interp Factor V Activity POC ABG pH POC ABG pCO2 POC ABG pO2 ABG pO2 ABG HCO3 ABG Base Excess ABG Hemoglobin Oxyhemoglobin Sodium Potassium Chloride Carbon Dioxide BUN Creatinine Glucose POC Glucose 107 H 129 H 111 H Lactic Acid Calcium Ionized Calcium Phosphorus Magnesium Direct Bilirubin AST ALT Alkaline Phosphatase Lactate Dehydrogenase Troponin T C-Reactive Protein Total Protein Albumin Prealbumin Triglycerides Cholesterol LDL Cholesterol Direct HDL Cholesterol 25-OH Vitamin D Total PTH Intact Urine pH Urine WBC (Auto) Urine Creatinine Urine Total Protein Fluid Total Protein Vancomycin Trough Rheumatoid Factor Complement C4 Miscellaneous Test Crossmatch 01/04/17 01/04/17 01/04/17 12:46 15:27 17:11 WBC RBC Hgb Hct MCV MCH MCHC RDW Plt Count Lymph % (Auto) [place] % (Auto) Lymph # [place] # Baso # Seg Neutrophils % Seg Neuts % (Manual) Lymphocytes % (Manual) Monocytes % (Manual) Eosinophils % (Manual) Basophils % (Manual) Nucleated RBC % Seg Neutrophils # Seg Neutrophils # Man Lymphocytes # (Manual) Monocytes # (Manual) Eosinophils # (Manual) Basophils # (Manual) PT INR Fibrinogen dRVVT Confirm Interp Factor V Activity POC ABG pH POC ABG pCO2 POC ABG pO2 ABG pO2 ABG HCO3 ABG Base Excess ABG Hemoglobin Oxyhemoglobin Sodium Potassium Chloride Carbon Dioxide BUN 43 H Creatinine Glucose 124 H POC Glucose 159 H 125 H Lactic Acid Calcium 8.0 L Ionized Calcium Phosphorus 2.10 L Magnesium Direct Bilirubin AST ALT Alkaline Phosphatase Lactate Dehydrogenase Troponin T C-Reactive Protein Total Protein Albumin Prealbumin Triglycerides Cholesterol LDL Cholesterol Direct HDL Cholesterol 25-OH Vitamin D Total PTH Intact Urine pH Urine WBC (Auto) Urine Creatinine Urine Total Protein Fluid Total Protein Vancomycin Trough Rheumatoid Factor Complement C4 Miscellaneous Test Crossmatch 01/04/17 01/05/1717 23:31 04:00 05:46 WBC RBC Hgb Hct MCV MCH MCHC RDW Plt Count Lymph % (Auto) [place] % (Auto) Lymph # [place] # Baso # Seg Neutrophils % Seg Neuts % (Manual) Lymphocytes % (Manual) Monocytes % (Manual) Eosinophils % (Manual) Basophils % (Manual) Nucleated RBC % Seg Neutrophils # Seg Neutrophils # Man Lymphocytes # (Manual) Monocytes # (Manual) Eosinophils # (Manual) Basophils # (Manual) PT INR Fibrinogen dRVVT Confirm Interp Factor V Activity POC ABG pH POC ABG pCO2 POC ABG pO2 ABG pO2 ABG HCO3 ABG Base Excess ABG Hemoglobin Oxyhemoglobin Sodium Potassium Chloride Carbon Dioxide BUN 52 H Creatinine 1.3 H Glucose 113 H POC Glucose 123 H 118 H Lactic Acid Calcium Ionized Calcium Phosphorus 2.40 L Magnesium Direct Bilirubin AST ALT Alkaline Phosphatase Lactate Dehydrogenase Troponin T C-Reactive Protein Total Protein Albumin Prealbumin Triglycerides Cholesterol LDL Cholesterol Direct HDL Cholesterol 25-OH Vitamin D Total PTH Intact Urine pH Urine WBC (Auto) Urine Creatinine Urine Total Protein Fluid Total Protein Vancomycin Trough Rheumatoid Factor Complement C4 Miscellaneous Test Crossmatch 01/05/17 01/05/17 01/05/17 11:41 17:48 23:27 WBC RBC Hgb Hct MCV MCH MCHC RDW Plt Count Lymph % (Auto) [place] % (Auto) Lymph # [place] # Baso # Seg Neutrophils % Seg Neuts % (Manual) Lymphocytes % (Manual) Monocytes % (Manual) Eosinophils % (Manual) Basophils % (Manual) Nucleated RBC % Seg Neutrophils # Seg Neutrophils # Man Lymphocytes # (Manual) Monocytes # (Manual) Eosinophils # (Manual) Basophils # (Manual) PT INR Fibrinogen dRVVT Confirm Interp Factor V Activity POC ABG pH POC ABG pCO2 POC ABG pO2 ABG pO2 ABG HCO3 ABG Base Excess ABG Hemoglobin Oxyhemoglobin Sodium Potassium Chloride Carbon Dioxide BUN Creatinine Glucose POC Glucose 163 H 142 H 155 H Lactic Acid Calcium Ionized Calcium Phosphorus Magnesium Direct Bilirubin AST ALT Alkaline Phosphatase Lactate Dehydrogenase Troponin T C-Reactive Protein Total Protein Albumin Prealbumin Triglycerides Cholesterol LDL Cholesterol Direct HDL Cholesterol 25-OH Vitamin D Total PTH Intact Urine pH Urine WBC (Auto) Urine Creatinine Urine Total Protein Fluid Total Protein Vancomycin Trough Rheumatoid Factor Complement C4 Miscellaneous Test Crossmatch 01/06/17 01/06/17 01/06/17 05:20 07:35 11:18 WBC RBC Hgb Hct MCV MCH MCHC RDW Plt Count Lymph % (Auto) [place] % (Auto) Lymph # [place] # Baso # Seg Neutrophils % Seg Neuts % (Manual) Lymphocytes % (Manual) Monocytes % (Manual) Eosinophils % (Manual) Basophils % (Manual) Nucleated RBC % Seg Neutrophils # Seg Neutrophils # Man Lymphocytes # (Manual) Monocytes # (Manual) Eosinophils # (Manual) Basophils # (Manual) PT INR Fibrinogen dRVVT Confirm Interp Factor V Activity POC ABG pH POC ABG pCO2 POC ABG pO2 ABG pO2 ABG HCO3 ABG Base Excess ABG Hemoglobin Oxyhemoglobin Sodium Potassium Chloride Carbon Dioxide BUN 74 H Creatinine 1.6 H Glucose 135 H POC Glucose 108 H 149 H Lactic Acid Calcium Ionized Calcium Phosphorus Magnesium Direct Bilirubin AST ALT Alkaline Phosphatase Lactate Dehydrogenase Troponin T C-Reactive Protein Total Protein Albumin Prealbumin Triglycerides Cholesterol LDL Cholesterol Direct HDL Cholesterol 25-OH Vitamin D Total PTH Intact Urine pH Urine WBC (Auto) Urine Creatinine Urine Total Protein Fluid Total Protein Vancomycin Trough Rheumatoid Factor Complement C4 Miscellaneous Test Crossmatch 01/06/17 01/07/17 01/07/17 17:17 00:23 05:31 WBC RBC Hgb Hct MCV MCH MCHC RDW Plt Count Lymph % (Auto) [place] % (Auto) Lymph # [place] # Baso # Seg Neutrophils % Seg Neuts % (Manual) Lymphocytes % (Manual) Monocytes % (Manual) Eosinophils % (Manual) Basophils % (Manual) Nucleated RBC % Seg Neutrophils # Seg Neutrophils # Man Lymphocytes # (Manual) Monocytes # (Manual) Eosinophils # (Manual) Basophils # (Manual) PT INR Fibrinogen dRVVT Confirm Interp Factor V Activity POC ABG pH POC ABG pCO2 POC ABG pO2 ABG pO2 ABG HCO3 ABG Base Excess ABG Hemoglobin Oxyhemoglobin Sodium Potassium Chloride Carbon Dioxide BUN Creatinine Glucose POC Glucose 146 H 165 H 153 H Lactic Acid Calcium Ionized Calcium Phosphorus Magnesium Direct Bilirubin AST ALT Alkaline Phosphatase Lactate Dehydrogenase Troponin T C-Reactive Protein Total Protein Albumin Prealbumin Triglycerides Cholesterol LDL Cholesterol Direct HDL Cholesterol 25-OH Vitamin D Total PTH Intact Urine pH Urine WBC (Auto) Urine Creatinine Urine Total Protein Fluid Total Protein Vancomycin Trough Rheumatoid Factor Complement C4 Miscellaneous Test Crossmatch 01/07/17 01/07/17 01/07/17 06:00 11:39 17:11 WBC RBC Hgb Hct MCV MCH MCHC RDW Plt Count Lymph % (Auto) [place] % (Auto) Lymph # [place] # Baso # Seg Neutrophils % Seg Neuts % (Manual) Lymphocytes % (Manual) Monocytes % (Manual) Eosinophils % (Manual) Basophils % (Manual) Nucleated RBC % Seg Neutrophils # Seg Neutrophils # Man Lymphocytes # (Manual) Monocytes # (Manual) Eosinophils # (Manual) Basophils # (Manual) PT INR Fibrinogen dRVVT Confirm Interp Factor V Activity POC ABG pH POC ABG pCO2 POC ABG pO2 ABG pO2 ABG HCO3 ABG Base Excess ABG Hemoglobin Oxyhemoglobin Sodium Potassium Chloride Carbon Dioxide BUN 42 H Creatinine Glucose 175 H POC Glucose 163 H 163 H Lactic Acid Calcium Ionized Calcium Phosphorus 2.40 L D Magnesium Direct Bilirubin AST ALT Alkaline Phosphatase Lactate Dehydrogenase Troponin T C-Reactive Protein Total Protein Albumin Prealbumin Triglycerides Cholesterol LDL Cholesterol Direct HDL Cholesterol 25-OH Vitamin D Total PTH Intact Urine pH Urine WBC (Auto) Urine Creatinine Urine Total Protein Fluid Total Protein Vancomycin Trough Rheumatoid Factor Complement C4 Miscellaneous Test Crossmatch 01/07/17 01/08/17 01/08/17 23:40 05:00 05:00 WBC 27.4 H RBC 2.27 L Hgb 6.1 L Hct 20.4 L MCV MCH 27 L MCHC RDW 17.8 H Plt Count Lymph % (Auto) [place] % (Auto) Lymph # [place] # Baso # Seg Neutrophils % Seg Neuts % (Manual) Lymphocytes % (Manual) Monocytes % (Manual) Eosinophils % (Manual) Basophils % (Manual) Nucleated RBC % Seg Neutrophils # Seg Neutrophils # Man Lymphocytes # (Manual) Monocytes # (Manual) Eosinophils # (Manual) Basophils # (Manual) PT INR Fibrinogen dRVVT Confirm Interp Factor V Activity POC ABG pH POC ABG pCO2 POC ABG pO2 ABG pO2 ABG HCO3 ABG Base Excess ABG Hemoglobin Oxyhemoglobin Sodium Potassium Chloride Carbon Dioxide 16 L D BUN 62 H Creatinine 1.6 H D Glucose 103 H POC Glucose 135 H Lactic Acid Calcium Ionized Calcium Phosphorus Magnesium Direct Bilirubin AST ALT Alkaline Phosphatase Lactate Dehydrogenase Troponin T C-Reactive Protein Total Protein Albumin Prealbumin Triglycerides Cholesterol LDL Cholesterol Direct HDL Cholesterol 25-OH Vitamin D Total PTH Intact Urine pH Urine WBC (Auto) Urine Creatinine Urine Total Protein Fluid Total Protein Vancomycin Trough Rheumatoid Factor Complement C4 Miscellaneous Test Crossmatch 01/08/17 01/08/17 01/08/17 05:25 10:37 10:37 WBC RBC Hgb Hct MCV MCH MCHC RDW Plt Count Lymph % (Auto) [place] % (Auto) Lymph # [place] # Baso # Seg Neutrophils % Seg Neuts % (Manual) Lymphocytes % (Manual) Monocytes % (Manual) Eosinophils % (Manual) Basophils % (Manual) Nucleated RBC % Seg Neutrophils # Seg Neutrophils # Man Lymphocytes # (Manual) Monocytes # (Manual) Eosinophils # (Manual) Basophils # (Manual) PT INR Fibrinogen dRVVT Confirm Interp Factor V Activity POC ABG pH POC ABG pCO2 POC ABG pO2 ABG pO2 ABG HCO3 ABG Base Excess ABG Hemoglobin Oxyhemoglobin Sodium Potassium Chloride Carbon Dioxide BUN Creatinine Glucose POC Glucose 106 H Lactic Acid Calcium Ionized Calcium Phosphorus Magnesium Direct Bilirubin AST ALT Alkaline Phosphatase Lactate Dehydrogenase Troponin T C-Reactive Protein 24.40 H Total Protein Albumin Prealbumin Triglycerides Cholesterol LDL Cholesterol Direct HDL Cholesterol 25-OH Vitamin D Total PTH Intact Urine pH Urine WBC (Auto) Urine Creatinine Urine Total Protein Fluid Total Protein Vancomycin Trough Rheumatoid Factor Complement C4 Miscellaneous Test Crossmatch See Detail 01/08/17 01/08/17 01/08/17 10:37 11:33 15:15 WBC RBC Hgb Hct MCV MCH MCHC RDW Plt Count Lymph % (Auto) [place] % (Auto) Lymph # [place] # Baso # Seg Neutrophils % Seg Neuts % (Manual) Lymphocytes % (Manual) Monocytes % (Manual) Eosinophils % (Manual) Basophils % (Manual) Nucleated RBC % Seg Neutrophils # Seg Neutrophils # Man Lymphocytes # (Manual) Monocytes # (Manual) Eosinophils # (Manual) Basophils # (Manual) PT INR Fibrinogen dRVVT Confirm Interp Factor V Activity POC ABG pH POC ABG pCO2 POC ABG pO2 ABG pO2 ABG HCO3 ABG Base Excess ABG Hemoglobin Oxyhemoglobin Sodium Potassium Chloride Carbon Dioxide BUN Creatinine Glucose POC Glucose 157 H Lactic Acid 9.70 H* 9.10 H* Calcium Ionized Calcium Phosphorus Magnesium Direct Bilirubin AST ALT Alkaline Phosphatase Lactate Dehydrogenase Troponin T C-Reactive Protein Total Protein Albumin Prealbumin Triglycerides Cholesterol LDL Cholesterol Direct HDL Cholesterol 25-OH Vitamin D Total PTH Intact Urine pH Urine WBC (Auto) Urine Creatinine Urine Total Protein Fluid Total Protein Vancomycin Trough Rheumatoid Factor Complement C4 Miscellaneous Test Crossmatch 01/08/17 01/08/17 01/09/17 17:19 23:12 04:40 WBC RBC Hgb Hct MCV MCH MCHC RDW Plt Count Lymph % (Auto) [place] % (Auto) Lymph # [place] # Baso # Seg Neutrophils % Seg Neuts % (Manual) Lymphocytes % (Manual) Monocytes % (Manual) Eosinophils % (Manual) Basophils % (Manual) Nucleated RBC % Seg Neutrophils # Seg Neutrophils # Man Lymphocytes # (Manual) Monocytes # (Manual) Eosinophils # (Manual) Basophils # (Manual) PT INR Fibrinogen dRVVT Confirm Interp Factor V Activity POC ABG pH POC ABG pCO2 POC ABG pO2 ABG pO2 ABG HCO3 ABG Base Excess ABG Hemoglobin Oxyhemoglobin Sodium 147 H Potassium Chloride Carbon Dioxide BUN 82 H Creatinine 1.8 H Glucose 137 H POC Glucose 164 H 157 H Lactic Acid Calcium Ionized Calcium Phosphorus Magnesium Direct Bilirubin AST ALT Alkaline Phosphatase Lactate Dehydrogenase Troponin T C-Reactive Protein Total Protein Albumin Prealbumin Triglycerides Cholesterol LDL Cholesterol Direct HDL Cholesterol 25-OH Vitamin D Total PTH Intact Urine pH Urine WBC (Auto) Urine Creatinine Urine Total Protein Fluid Total Protein Vancomycin Trough Rheumatoid Factor Complement C4 Miscellaneous Test Crossmatch 01/09/17 01/09/17 01/09/17 05:42 08:22 10:57 WBC RBC Hgb Hct MCV MCH MCHC RDW Plt Count Lymph % (Auto) [place] % (Auto) Lymph # [place] # Baso # Seg Neutrophils % Seg Neuts % (Manual) Lymphocytes % (Manual) Monocytes % (Manual) Eosinophils % (Manual) Basophils % (Manual) Nucleated RBC % Seg Neutrophils # Seg Neutrophils # Man Lymphocytes # (Manual) Monocytes # (Manual) Eosinophils # (Manual) Basophils # (Manual) PT INR Fibrinogen dRVVT Confirm Interp Factor V Activity POC ABG pH POC ABG pCO2 POC ABG pO2 ABG pO2 ABG HCO3 ABG Base Excess ABG Hemoglobin Oxyhemoglobin Sodium Potassium Chloride Carbon Dioxide BUN Creatinine Glucose POC Glucose 156 H 122 H Lactic Acid 2.30 H* Calcium Ionized Calcium Phosphorus Magnesium Direct Bilirubin AST ALT Alkaline Phosphatase Lactate Dehydrogenase Troponin T C-Reactive Protein Total Protein Albumin Prealbumin Triglycerides Cholesterol LDL Cholesterol Direct HDL Cholesterol 25-OH Vitamin D Total PTH Intact Urine pH Urine WBC (Auto) Urine Creatinine Urine Total Protein Fluid Total Protein Vancomycin Trough Rheumatoid Factor Complement C4 Miscellaneous Test Crossmatch 01/09/17 01/09/17 01/09/17 13:30 17:14 18:45 WBC RBC Hgb Hct MCV MCH MCHC RDW Plt Count Lymph % (Auto) [place] % (Auto) Lymph # [place] # Baso # Seg Neutrophils % Seg Neuts % (Manual) Lymphocytes % (Manual) Monocytes % (Manual) Eosinophils % (Manual) Basophils % (Manual) Nucleated RBC % Seg Neutrophils # Seg Neutrophils # Man Lymphocytes # (Manual) Monocytes # (Manual) Eosinophils # (Manual) Basophils # (Manual) PT INR Fibrinogen dRVVT Confirm Interp Factor V Activity POC ABG pH POC ABG pCO2 POC ABG pO2 ABG pO2 ABG HCO3 ABG Base Excess ABG Hemoglobin Oxyhemoglobin Sodium Potassium Chloride Carbon Dioxide BUN Creatinine Glucose POC Glucose 127 H Lactic Acid Calcium Ionized Calcium Phosphorus Magnesium Direct Bilirubin AST ALT Alkaline Phosphatase Lactate Dehydrogenase Troponin T C-Reactive Protein 24.70 H Total Protein Albumin Prealbumin Triglycerides Cholesterol LDL Cholesterol Direct HDL Cholesterol 25-OH Vitamin D Total PTH Intact Urine pH Urine WBC (Auto) Urine Creatinine Urine Total Protein Fluid Total Protein Vancomycin Trough Rheumatoid Factor Complement C4 Miscellaneous Test Flexitest 1 H Crossmatch 01/10/17 01/10/17 01/10/17 01:21 04:00 04:00 WBC 18.1 H RBC 3.22 L Hgb 8.8 L Hct 27.0 L D MCV MCH 27 L MCHC RDW 17.0 H Plt Count Lymph % (Auto) [place] % (Auto) Lymph # [place] # Baso # Seg Neutrophils % Seg Neuts % (Manual) Lymphocytes % (Manual) Monocytes % (Manual) Eosinophils % (Manual) Basophils % (Manual) Nucleated RBC % Seg Neutrophils # Seg Neutrophils # Man Lymphocytes # (Manual) Monocytes # (Manual) Eosinophils # (Manual) Basophils # (Manual) PT INR Fibrinogen dRVVT Confirm Interp Factor V Activity POC ABG pH POC ABG pCO2 POC ABG pO2 ABG pO2 ABG HCO3 ABG Base Excess ABG Hemoglobin Oxyhemoglobin Sodium Potassium Chloride Carbon Dioxide BUN 59 H Creatinine 1.3 H Glucose 122 H POC Glucose 160 H Lactic Acid Calcium Ionized Calcium Phosphorus Magnesium Direct Bilirubin AST ALT Alkaline Phosphatase Lactate Dehydrogenase Troponin T C-Reactive Protein Total Protein Albumin Prealbumin Triglycerides Cholesterol LDL Cholesterol Direct HDL Cholesterol 25-OH Vitamin D Total PTH Intact Urine pH Urine WBC (Auto) Urine Creatinine Urine Total Protein Fluid Total Protein Vancomycin Trough Rheumatoid Factor Complement C4 Miscellaneous Test Crossmatch 01/10/17 01/10/17 01/10/17 05:36 12:14 17:55 WBC RBC Hgb Hct MCV MCH MCHC RDW Plt Count Lymph % (Auto) [place] % (Auto) Lymph # [place] # Baso # Seg Neutrophils % Seg Neuts % (Manual) Lymphocytes % (Manual) Monocytes % (Manual) Eosinophils % (Manual) Basophils % (Manual) Nucleated RBC % Seg Neutrophils # Seg Neutrophils # Man Lymphocytes # (Manual) Monocytes # (Manual) Eosinophils # (Manual) Basophils # (Manual) PT INR Fibrinogen dRVVT Confirm Interp Factor V Activity POC ABG pH POC ABG pCO2 POC ABG pO2 ABG pO2 ABG HCO3 ABG Base Excess ABG Hemoglobin Oxyhemoglobin Sodium Potassium Chloride Carbon Dioxide BUN Creatinine Glucose POC Glucose 163 H 120 H 144 H Lactic Acid Calcium Ionized Calcium Phosphorus Magnesium Direct Bilirubin AST ALT Alkaline Phosphatase Lactate Dehydrogenase Troponin T C-Reactive Protein Total Protein Albumin Prealbumin Triglycerides Cholesterol LDL Cholesterol Direct HDL Cholesterol 25-OH Vitamin D Total PTH Intact Urine pH Urine WBC (Auto) Urine Creatinine Urine Total Protein Fluid Total Protein Vancomycin Trough Rheumatoid Factor Complement C4 Miscellaneous Test Crossmatch 01/11/17 01/11/17 01/11/17 00:09 04:00 04:00 WBC 15.8 H RBC 3.04 L Hgb 8.2 L Hct 25.5 L MCV MCH 27 L MCHC RDW 17.3 H Plt Count Lymph % (Auto) [place] % (Auto) Lymph # [place] # Baso # Seg Neutrophils % Seg Neuts % (Manual) Lymphocytes % (Manual) Monocytes % (Manual) Eosinophils % (Manual) Basophils % (Manual) Nucleated RBC % Seg Neutrophils # Seg Neutrophils # Man Lymphocytes # (Manual) Monocytes # (Manual) Eosinophils # (Manual) Basophils # (Manual) PT INR Fibrinogen dRVVT Confirm Interp Factor V Activity POC ABG pH POC ABG pCO2 POC ABG pO2 ABG pO2 ABG HCO3 ABG Base Excess ABG Hemoglobin Oxyhemoglobin Sodium Potassium Chloride Carbon Dioxide BUN 78 H Creatinine 1.6 H Glucose 109 H POC Glucose 122 H Lactic Acid Calcium Ionized Calcium Phosphorus Magnesium Direct Bilirubin AST ALT Alkaline Phosphatase Lactate Dehydrogenase Troponin T C-Reactive Protein Total Protein Albumin Prealbumin Triglycerides Cholesterol LDL Cholesterol Direct HDL Cholesterol 25-OH Vitamin D Total PTH Intact Urine pH Urine WBC (Auto) Urine Creatinine Urine Total Protein Fluid Total Protein Vancomycin Trough Rheumatoid Factor Complement C4 Miscellaneous Test Crossmatch 01/11/17 01/11/17 01/11/17 12:46 18:23 23:42 WBC RBC Hgb Hct MCV MCH MCHC RDW Plt Count Lymph % (Auto) [place] % (Auto) Lymph # [place] # Baso # Seg Neutrophils % Seg Neuts % (Manual) Lymphocytes % (Manual) Monocytes % (Manual) Eosinophils % (Manual) Basophils % (Manual) Nucleated RBC % Seg Neutrophils # Seg Neutrophils # Man Lymphocytes # (Manual) Monocytes # (Manual) Eosinophils # (Manual) Basophils # (Manual) PT INR Fibrinogen dRVVT Confirm Interp Factor V Activity POC ABG pH POC ABG pCO2 POC ABG pO2 ABG pO2 ABG HCO3 ABG Base Excess ABG Hemoglobin Oxyhemoglobin Sodium Potassium Chloride Carbon Dioxide BUN Creatinine Glucose POC Glucose 148 H 125 H 124 H Lactic Acid Calcium Ionized Calcium Phosphorus Magnesium Direct Bilirubin AST ALT Alkaline Phosphatase Lactate Dehydrogenase Troponin T C-Reactive Protein Total Protein Albumin Prealbumin Triglycerides Cholesterol LDL Cholesterol Direct HDL Cholesterol 25-OH Vitamin D Total PTH Intact Urine pH Urine WBC (Auto) Urine Creatinine Urine Total Protein Fluid Total Protein Vancomycin Trough Rheumatoid Factor Complement C4 Miscellaneous Test Crossmatch 01/12/17 01/12/17 01/12/17 04:30 04:30 05:47 WBC 15.8 H RBC 3.31 L Hgb 8.9 L Hct 27.9 L MCV MCH 27 L MCHC RDW 17.4 H Plt Count Lymph % (Auto) [place] % (Auto) Lymph # [place] # Baso # Seg Neutrophils % Seg Neuts % (Manual) Lymphocytes % (Manual) Monocytes % (Manual) Eosinophils % (Manual) Basophils % (Manual) Nucleated RBC % Seg Neutrophils # Seg Neutrophils # Man Lymphocytes # (Manual) Monocytes # (Manual) Eosinophils # (Manual) Basophils # (Manual) PT INR Fibrinogen dRVVT Confirm Interp Factor V Activity POC ABG pH POC ABG pCO2 POC ABG pO2 ABG pO2 ABG HCO3 ABG Base Excess ABG Hemoglobin Oxyhemoglobin Sodium Potassium Chloride Carbon Dioxide BUN 57 H Creatinine Glucose 121 H POC Glucose 110 H Lactic Acid Calcium Ionized Calcium Phosphorus 2.10 L Magnesium Direct Bilirubin AST ALT Alkaline Phosphatase Lactate Dehydrogenase Troponin T C-Reactive Protein Total Protein Albumin Prealbumin Triglycerides Cholesterol LDL Cholesterol Direct HDL Cholesterol 25-OH Vitamin D Total PTH Intact Urine pH Urine WBC (Auto) Urine Creatinine Urine Total Protein Fluid Total Protein Vancomycin Trough Rheumatoid Factor Complement C4 Miscellaneous Test Crossmatch 01/12/17 01/12/17 01/12/17 11:35 17:45 23:14 WBC RBC Hgb Hct MCV MCH MCHC RDW Plt Count Lymph % (Auto) [place] % (Auto) Lymph # [place] # Baso # Seg Neutrophils % Seg Neuts % (Manual) Lymphocytes % (Manual) Monocytes % (Manual) Eosinophils % (Manual) Basophils % (Manual) Nucleated RBC % Seg Neutrophils # Seg Neutrophils # Man Lymphocytes # (Manual) Monocytes # (Manual) Eosinophils # (Manual) Basophils # (Manual) PT INR Fibrinogen dRVVT Confirm Interp Factor V Activity POC ABG pH POC ABG pCO2 POC ABG pO2 ABG pO2 ABG HCO3 ABG Base Excess ABG Hemoglobin Oxyhemoglobin Sodium Potassium Chloride Carbon Dioxide BUN Creatinine Glucose POC Glucose 146 H 117 H 123 H Lactic Acid Calcium Ionized Calcium Phosphorus Magnesium Direct Bilirubin AST ALT Alkaline Phosphatase Lactate Dehydrogenase Troponin T C-Reactive Protein Total Protein Albumin Prealbumin Triglycerides Cholesterol LDL Cholesterol Direct HDL Cholesterol 25-OH Vitamin D Total PTH Intact Urine pH Urine WBC (Auto) Urine Creatinine Urine Total Protein Fluid Total Protein Vancomycin Trough Rheumatoid Factor Complement C4 Miscellaneous Test Crossmatch 01/13/17 01/13/17 01/13/17 05:32 06:00 12:10 WBC RBC Hgb Hct MCV MCH MCHC RDW Plt Count Lymph % (Auto) [place] % (Auto) Lymph # [place] # Baso # Seg Neutrophils % Seg Neuts % (Manual) Lymphocytes % (Manual) Monocytes % (Manual) Eosinophils % (Manual) Basophils % (Manual) Nucleated RBC % Seg Neutrophils # Seg Neutrophils # Man Lymphocytes # (Manual) Monocytes # (Manual) Eosinophils # (Manual) Basophils # (Manual) PT INR Fibrinogen dRVVT Confirm Interp Factor V Activity POC ABG pH POC ABG pCO2 POC ABG pO2 ABG pO2 ABG HCO3 ABG Base Excess ABG Hemoglobin Oxyhemoglobin Sodium Potassium Chloride Carbon Dioxide BUN 80 H Creatinine 1.4 H Glucose 106 H POC Glucose 106 H Lactic Acid Calcium Ionized Calcium Phosphorus Magnesium Direct Bilirubin AST ALT Alkaline Phosphatase Lactate Dehydrogenase Troponin T C-Reactive Protein Total Protein Albumin Prealbumin Triglycerides Cholesterol LDL Cholesterol Direct HDL Cholesterol 25-OH Vitamin D Total PTH Intact Urine pH Urine WBC (Auto) Urine Creatinine Urine Total Protein Fluid Total Protein 3.0 L Vancomycin Trough Rheumatoid Factor Complement C4 Miscellaneous Test Crossmatch 01/13/17 01/13/17 01/13/17 12:17 15:50 17:30 WBC RBC Hgb Hct MCV MCH MCHC RDW Plt Count Lymph % (Auto) [place] % (Auto) Lymph # [place] # Baso # Seg Neutrophils % Seg Neuts % (Manual) Lymphocytes % (Manual) Monocytes % (Manual) Eosinophils % (Manual) Basophils % (Manual) Nucleated RBC % Seg Neutrophils # Seg Neutrophils # Man Lymphocytes # (Manual) Monocytes # (Manual) Eosinophils # (Manual) Basophils # (Manual) PT 15.4 H INR 1.16 H Fibrinogen dRVVT Confirm Interp Factor V Activity POC ABG pH POC ABG pCO2 POC ABG pO2 ABG pO2 ABG HCO3 ABG Base Excess ABG Hemoglobin Oxyhemoglobin Sodium Potassium Chloride Carbon Dioxide BUN Creatinine Glucose POC Glucose 168 H 110 H Lactic Acid Calcium Ionized Calcium Phosphorus Magnesium Direct Bilirubin AST ALT Alkaline Phosphatase Lactate Dehydrogenase Troponin T C-Reactive Protein Total Protein Albumin Prealbumin Triglycerides Cholesterol LDL Cholesterol Direct HDL Cholesterol 25-OH Vitamin D Total PTH Intact Urine pH Urine WBC (Auto) Urine Creatinine Urine Total Protein Fluid Total Protein Vancomycin Trough Rheumatoid Factor Complement C4 Miscellaneous Test Crossmatch 01/13/17 01/14/17 01/14/17 23:42 05:24 05:30 WBC RBC Hgb Hct MCV MCH MCHC RDW Plt Count Lymph % (Auto) [place] % (Auto) Lymph # [place] # Baso # Seg Neutrophils % Seg Neuts % (Manual) Lymphocytes % (Manual) Monocytes % (Manual) Eosinophils % (Manual) Basophils % (Manual) Nucleated RBC % Seg Neutrophils # Seg Neutrophils # Man Lymphocytes # (Manual) Monocytes # (Manual) Eosinophils # (Manual) Basophils # (Manual) PT INR Fibrinogen dRVVT Confirm Interp Factor V Activity POC ABG pH POC ABG pCO2 POC ABG pO2 ABG pO2 ABG HCO3 ABG Base Excess ABG Hemoglobin Oxyhemoglobin Sodium Potassium Chloride Carbon Dioxide BUN 58 H Creatinine Glucose 114 H POC Glucose 155 H 121 H Lactic Acid Calcium Ionized Calcium Phosphorus Magnesium Direct Bilirubin AST ALT Alkaline Phosphatase Lactate Dehydrogenase Troponin T C-Reactive Protein Total Protein Albumin Prealbumin Triglycerides Cholesterol LDL Cholesterol Direct HDL Cholesterol 25-OH Vitamin D Total PTH Intact Urine pH Urine WBC (Auto) Urine Creatinine Urine Total Protein Fluid Total Protein Vancomycin Trough Rheumatoid Factor Complement C4 Miscellaneous Test Crossmatch 01/14/17 01/14/17 01/15/17 12:48 17:36 00:15 WBC RBC Hgb Hct MCV MCH MCHC RDW Plt Count Lymph % (Auto) [place] % (Auto) Lymph # [place] # Baso # Seg Neutrophils % Seg Neuts % (Manual) Lymphocytes % (Manual) Monocytes % (Manual) Eosinophils % (Manual) Basophils % (Manual) Nucleated RBC % Seg Neutrophils # Seg Neutrophils # Man Lymphocytes # (Manual) Monocytes # (Manual) Eosinophils # (Manual) Basophils # (Manual) PT INR Fibrinogen dRVVT Confirm Interp Factor V Activity POC ABG pH POC ABG pCO2 POC ABG pO2 ABG pO2 ABG HCO3 ABG Base Excess ABG Hemoglobin Oxyhemoglobin Sodium Potassium Chloride Carbon Dioxide BUN Creatinine Glucose POC Glucose 130 H 135 H 132 H Lactic Acid Calcium Ionized Calcium Phosphorus Magnesium Direct Bilirubin AST ALT Alkaline Phosphatase Lactate Dehydrogenase Troponin T C-Reactive Protein Total Protein Albumin Prealbumin Triglycerides Cholesterol LDL Cholesterol Direct HDL Cholesterol 25-OH Vitamin D Total PTH Intact Urine pH Urine WBC (Auto) Urine Creatinine Urine Total Protein Fluid Total Protein Vancomycin Trough Rheumatoid Factor Complement C4 Miscellaneous Test Crossmatch 01/15/17 01/15/17 01/15/17 05:01 11:55 12:45 WBC 16.2 H RBC 3.00 L Hgb 8.1 L Hct 25.4 L MCV MCH 27 L MCHC RDW 17.6 H Plt Count Lymph % (Auto) 11.7 L [place] % (Auto) 7.8 H Lymph # [place] # 1.3 H Baso # Seg Neutrophils % 80.1 H Seg Neuts % (Manual) Lymphocytes % (Manual) Monocytes % (Manual) Eosinophils % (Manual) Basophils % (Manual) Nucleated RBC % Seg Neutrophils # 13.0 H Seg Neutrophils # Man Lymphocytes # (Manual) Monocytes # (Manual) Eosinophils # (Manual) Basophils # (Manual) PT INR Fibrinogen dRVVT Confirm Interp Factor V Activity POC ABG pH POC ABG pCO2 POC ABG pO2 ABG pO2 ABG HCO3 ABG Base Excess ABG Hemoglobin Oxyhemoglobin Sodium Potassium Chloride Carbon Dioxide BUN Creatinine Glucose POC Glucose 126 H 125 H Lactic Acid Calcium Ionized Calcium Phosphorus Magnesium Direct Bilirubin AST ALT Alkaline Phosphatase Lactate Dehydrogenase Troponin T C-Reactive Protein Total Protein Albumin Prealbumin Triglycerides Cholesterol LDL Cholesterol Direct HDL Cholesterol 25-OH Vitamin D Total PTH Intact Urine pH Urine WBC (Auto) Urine Creatinine Urine Total Protein Fluid Total Protein Vancomycin Trough Rheumatoid Factor Complement C4 Miscellaneous Test Crossmatch 01/15/17 01/15/17 01/15/17 12:45 17:31 23:39 WBC RBC Hgb Hct MCV MCH MCHC RDW Plt Count Lymph % (Auto) [place] % (Auto) Lymph # [place] # Baso # Seg Neutrophils % Seg Neuts % (Manual) Lymphocytes % (Manual) Monocytes % (Manual) Eosinophils % (Manual) Basophils % (Manual) Nucleated RBC % Seg Neutrophils # Seg Neutrophils # Man Lymphocytes # (Manual) Monocytes # (Manual) Eosinophils # (Manual) Basophils # (Manual) PT INR Fibrinogen dRVVT Confirm Interp Factor V Activity POC ABG pH POC ABG pCO2 POC ABG pO2 ABG pO2 ABG HCO3 ABG Base Excess ABG Hemoglobin Oxyhemoglobin Sodium 136 L Potassium Chloride Carbon Dioxide BUN 87 H Creatinine 1.7 H Glucose 108 H POC Glucose 129 H 112 H Lactic Acid Calcium Ionized Calcium Phosphorus Magnesium Direct Bilirubin AST ALT Alkaline Phosphatase Lactate Dehydrogenase Troponin T C-Reactive Protein Total Protein Albumin Prealbumin Triglycerides Cholesterol LDL Cholesterol Direct HDL Cholesterol 25-OH Vitamin D Total PTH Intact Urine pH Urine WBC (Auto) Urine Creatinine Urine Total Protein Fluid Total Protein Vancomycin Trough Rheumatoid Factor Complement C4 Miscellaneous Test Crossmatch 01/16/17 01/16/17 01/16/17 05:23 11:42 12:32 WBC RBC Hgb Hct MCV MCH MCHC RDW Plt Count Lymph % (Auto) [place] % (Auto) Lymph # [place] # Baso # Seg Neutrophils % Seg Neuts % (Manual) Lymphocytes % (Manual) Monocytes % (Manual) Eosinophils % (Manual) Basophils % (Manual) Nucleated RBC % Seg Neutrophils # Seg Neutrophils # Man Lymphocytes # (Manual) Monocytes # (Manual) Eosinophils # (Manual) Basophils # (Manual) PT INR Fibrinogen dRVVT Confirm Interp Factor V Activity POC ABG pH 7.499 H POC ABG pCO2 30.9 L POC ABG pO2 51 L ABG pO2 ABG HCO3 ABG Base Excess ABG Hemoglobin Oxyhemoglobin Sodium Potassium Chloride Carbon Dioxide BUN Creatinine Glucose POC Glucose 118 H 133 H Lactic Acid Calcium Ionized Calcium Phosphorus Magnesium Direct Bilirubin AST ALT Alkaline Phosphatase Lactate Dehydrogenase Troponin T C-Reactive Protein Total Protein Albumin Prealbumin Triglycerides Cholesterol LDL Cholesterol Direct HDL Cholesterol 25-OH Vitamin D Total PTH Intact Urine pH Urine WBC (Auto) Urine Creatinine Urine Total Protein Fluid Total Protein Vancomycin Trough Rheumatoid Factor Complement C4 Miscellaneous Test Crossmatch 01/16/17 01/16/17 01/16/17 17:52 23:57 Unknown WBC RBC Hgb Hct MCV MCH MCHC RDW Plt Count Lymph % (Auto) [place] % (Auto) Lymph # [place] # Baso # Seg Neutrophils % Seg Neuts % (Manual) Lymphocytes % (Manual) Monocytes % (Manual) Eosinophils % (Manual) Basophils % (Manual) Nucleated RBC % Seg Neutrophils # Seg Neutrophils # Man Lymphocytes # (Manual) Monocytes # (Manual) Eosinophils # (Manual) Basophils # (Manual) PT INR Fibrinogen dRVVT Confirm Interp Factor V Activity POC ABG pH POC ABG pCO2 POC ABG pO2 ABG pO2 ABG HCO3 ABG Base Excess ABG Hemoglobin Oxyhemoglobin Sodium 135 L Potassium Chloride Carbon Dioxide BUN 101 H Creatinine 1.8 H Glucose 117 H POC Glucose 130 H 143 H Lactic Acid Calcium Ionized Calcium Phosphorus 5.80 H Magnesium Direct Bilirubin AST ALT Alkaline Phosphatase Lactate Dehydrogenase Troponin T C-Reactive Protein Total Protein Albumin Prealbumin Triglycerides Cholesterol LDL Cholesterol Direct HDL Cholesterol 25-OH Vitamin D Total PTH Intact Urine pH Urine WBC (Auto) Urine Creatinine Urine Total Protein Fluid Total Protein Vancomycin Trough Rheumatoid Factor Complement C4 Miscellaneous Test Crossmatch 01/17/17 01/17/17 01/17/17 05:30 05:46 11:49 WBC RBC Hgb Hct MCV MCH MCHC RDW Plt Count Lymph % (Auto) [place] % (Auto) Lymph # [place] # Baso # Seg Neutrophils % Seg Neuts % (Manual) Lymphocytes % (Manual) Monocytes % (Manual) Eosinophils % (Manual) Basophils % (Manual) Nucleated RBC % Seg Neutrophils # Seg Neutrophils # Man Lymphocytes # (Manual) Monocytes # (Manual) Eosinophils # (Manual) Basophils # (Manual) PT INR Fibrinogen dRVVT Confirm Interp Factor V Activity POC ABG pH POC ABG pCO2 POC ABG pO2 ABG pO2 ABG HCO3 ABG Base Excess ABG Hemoglobin Oxyhemoglobin Sodium 134 L Potassium Chloride 95.8 L Carbon Dioxide BUN 66 H Creatinine 1.3 H Glucose 138 H POC Glucose 147 H 124 H Lactic Acid Calcium Ionized Calcium Phosphorus Magnesium Direct Bilirubin AST ALT Alkaline Phosphatase 254 H Lactate Dehydrogenase Troponin T C-Reactive Protein Total Protein Albumin 1.3 L Prealbumin Triglycerides Cholesterol LDL Cholesterol Direct HDL Cholesterol 25-OH Vitamin D Total PTH Intact Urine pH Urine WBC (Auto) Urine Creatinine Urine Total Protein Fluid Total Protein Vancomycin Trough Rheumatoid Factor Complement C4 Miscellaneous Test Crossmatch 01/17/17 01/17/17 01/18/17 17:30 23:41 05:15 WBC RBC Hgb Hct MCV MCH MCHC RDW Plt Count Lymph % (Auto) [place] % (Auto) Lymph # [place] # Baso # Seg Neutrophils % Seg Neuts % (Manual) Lymphocytes % (Manual) Monocytes % (Manual) Eosinophils % (Manual) Basophils % (Manual) Nucleated RBC % Seg Neutrophils # Seg Neutrophils # Man Lymphocytes # (Manual) Monocytes # (Manual) Eosinophils # (Manual) Basophils # (Manual) PT INR Fibrinogen dRVVT Confirm Interp Factor V Activity POC ABG pH POC ABG pCO2 POC ABG pO2 ABG pO2 ABG HCO3 ABG Base Excess ABG Hemoglobin Oxyhemoglobin Sodium Potassium Chloride Carbon Dioxide BUN 89 H Creatinine 1.7 H Glucose 118 H POC Glucose 137 H 119 H Lactic Acid Calcium Ionized Calcium Phosphorus Magnesium Direct Bilirubin AST ALT Alkaline Phosphatase Lactate Dehydrogenase Troponin T C-Reactive Protein Total Protein Albumin Prealbumin Triglycerides Cholesterol LDL Cholesterol Direct HDL Cholesterol 25-OH Vitamin D Total PTH Intact Urine pH Urine WBC (Auto) Urine Creatinine Urine Total Protein Fluid Total Protein Vancomycin Trough Rheumatoid Factor Complement C4 Miscellaneous Test Crossmatch 01/18/17 01/18/17 01/18/17 05:19 12:16 18:11 WBC RBC Hgb Hct MCV MCH MCHC RDW Plt Count Lymph % (Auto) [place] % (Auto) Lymph # [place] # Baso # Seg Neutrophils % Seg Neuts % (Manual) Lymphocytes % (Manual) Monocytes % (Manual) Eosinophils % (Manual) Basophils % (Manual) Nucleated RBC % Seg Neutrophils # Seg Neutrophils # Man Lymphocytes # (Manual) Monocytes # (Manual) Eosinophils # (Manual) Basophils # (Manual) PT INR Fibrinogen dRVVT Confirm Interp Factor V Activity POC ABG pH POC ABG pCO2 POC ABG pO2 ABG pO2 ABG HCO3 ABG Base Excess ABG Hemoglobin Oxyhemoglobin Sodium Potassium Chloride Carbon Dioxide BUN Creatinine Glucose POC Glucose 134 H 188 H 113 H Lactic Acid Calcium Ionized Calcium Phosphorus Magnesium Direct Bilirubin AST ALT Alkaline Phosphatase Lactate Dehydrogenase Troponin T C-Reactive Protein Total Protein Albumin Prealbumin Triglycerides Cholesterol LDL Cholesterol Direct HDL Cholesterol 25-OH Vitamin D Total PTH Intact Urine pH Urine WBC (Auto) Urine Creatinine Urine Total Protein Fluid Total Protein Vancomycin Trough Rheumatoid Factor Complement C4 Miscellaneous Test Crossmatch 01/19/17 01/19/17 01/19/17 00:00 05:30 05:36 WBC RBC Hgb Hct MCV MCH MCHC RDW Plt Count Lymph % (Auto) [place] % (Auto) Lymph # [place] # Baso # Seg Neutrophils % Seg Neuts % (Manual) Lymphocytes % (Manual) Monocytes % (Manual) Eosinophils % (Manual) Basophils % (Manual) Nucleated RBC % Seg Neutrophils # Seg Neutrophils # Man Lymphocytes # (Manual) Monocytes # (Manual) Eosinophils # (Manual) Basophils # (Manual) PT INR Fibrinogen dRVVT Confirm Interp Factor V Activity POC ABG pH POC ABG pCO2 POC ABG pO2 ABG pO2 ABG HCO3 ABG Base Excess ABG Hemoglobin Oxyhemoglobin Sodium Potassium Chloride Carbon Dioxide BUN 70 H Creatinine 1.5 H Glucose 121 H POC Glucose 137 H 155 H Lactic Acid Calcium Ionized Calcium Phosphorus 2.10 L D Magnesium Direct Bilirubin AST ALT Alkaline Phosphatase Lactate Dehydrogenase Troponin T C-Reactive Protein Total Protein Albumin Prealbumin Triglycerides Cholesterol LDL Cholesterol Direct HDL Cholesterol 25-OH Vitamin D Total PTH Intact Urine pH Urine WBC (Auto) Urine Creatinine Urine Total Protein Fluid Total Protein Vancomycin Trough Rheumatoid Factor Complement C4 Miscellaneous Test Crossmatch 01/19/17 01/19/17 01/19/17 11:59 15:32 17:57 WBC RBC Hgb Hct MCV MCH MCHC RDW Plt Count Lymph % (Auto) [place] % (Auto) Lymph # [place] # Baso # Seg Neutrophils % Seg Neuts % (Manual) Lymphocytes % (Manual) Monocytes % (Manual) Eosinophils % (Manual) Basophils % (Manual) Nucleated RBC % Seg Neutrophils # Seg Neutrophils # Man Lymphocytes # (Manual) Monocytes # (Manual) Eosinophils # (Manual) Basophils # (Manual) PT INR Fibrinogen dRVVT Confirm Interp Factor V Activity POC ABG pH POC ABG pCO2 33.1 L POC ABG pO2 76 L ABG pO2 ABG HCO3 ABG Base Excess ABG Hemoglobin Oxyhemoglobin Sodium Potassium Chloride Carbon Dioxide BUN Creatinine Glucose POC Glucose 156 H 129 H Lactic Acid Calcium Ionized Calcium Phosphorus Magnesium Direct Bilirubin AST ALT Alkaline Phosphatase Lactate Dehydrogenase Troponin T C-Reactive Protein Total Protein Albumin Prealbumin Triglycerides Cholesterol LDL Cholesterol Direct HDL Cholesterol 25-OH Vitamin D Total PTH Intact Urine pH Urine WBC (Auto) Urine Creatinine Urine Total Protein Fluid Total Protein Vancomycin Trough Rheumatoid Factor Complement C4 Miscellaneous Test Crossmatch 01/19/17 01/20/17 01/20/17 23:49 04:00 05:21 WBC RBC Hgb Hct MCV MCH MCHC RDW Plt Count Lymph % (Auto) [place] % (Auto) Lymph # [place] # Baso # Seg Neutrophils % Seg Neuts % (Manual) Lymphocytes % (Manual) Monocytes % (Manual) Eosinophils % (Manual) Basophils % (Manual) Nucleated RBC % Seg Neutrophils # Seg Neutrophils # Man Lymphocytes # (Manual) Monocytes # (Manual) Eosinophils # (Manual) Basophils # (Manual) PT INR Fibrinogen dRVVT Confirm Interp Factor V Activity POC ABG pH POC ABG pCO2 POC ABG pO2 ABG pO2 ABG HCO3 ABG Base Excess ABG Hemoglobin Oxyhemoglobin Sodium Potassium Chloride Carbon Dioxide BUN 96 H Creatinine 1.9 H Glucose 106 H POC Glucose 125 H 130 H Lactic Acid Calcium Ionized Calcium Phosphorus 2.40 L Magnesium Direct Bilirubin AST ALT Alkaline Phosphatase Lactate Dehydrogenase Troponin T C-Reactive Protein Total Protein Albumin Prealbumin Triglycerides Cholesterol LDL Cholesterol Direct HDL Cholesterol 25-OH Vitamin D Total PTH Intact Urine pH Urine WBC (Auto) Urine Creatinine Urine Total Protein Fluid Total Protein Vancomycin Trough Rheumatoid Factor Complement C4 Miscellaneous Test Crossmatch 01/20/17 01/20/17 01/20/17 11:58 12:17 17:26 WBC RBC Hgb Hct MCV MCH MCHC RDW Plt Count Lymph % (Auto) [place] % (Auto) Lymph # [place] # Baso # Seg Neutrophils % Seg Neuts % (Manual) Lymphocytes % (Manual) Monocytes % (Manual) Eosinophils % (Manual) Basophils % (Manual) Nucleated RBC % Seg Neutrophils # Seg Neutrophils # Man Lymphocytes # (Manual) Monocytes # (Manual) Eosinophils # (Manual) Basophils # (Manual) PT INR Fibrinogen dRVVT Confirm Interp Factor V Activity POC ABG pH POC ABG pCO2 POC ABG pO2 70 L ABG pO2 ABG HCO3 ABG Base Excess ABG Hemoglobin Oxyhemoglobin Sodium Potassium Chloride Carbon Dioxide BUN Creatinine Glucose POC Glucose 118 H 154 H Lactic Acid Calcium Ionized Calcium Phosphorus Magnesium Direct Bilirubin AST ALT Alkaline Phosphatase Lactate Dehydrogenase Troponin T C-Reactive Protein Total Protein Albumin Prealbumin Triglycerides Cholesterol LDL Cholesterol Direct HDL Cholesterol 25-OH Vitamin D Total PTH Intact Urine pH Urine WBC (Auto) Urine Creatinine Urine Total Protein Fluid Total Protein Vancomycin Trough Rheumatoid Factor Complement C4 Miscellaneous Test Crossmatch 01/21/17 01/21/17 01/21/17 04:00 04:56 11:46 WBC RBC Hgb Hct MCV MCH MCHC RDW Plt Count Lymph % (Auto) [place] % (Auto) Lymph # [place] # Baso # Seg Neutrophils % Seg Neuts % (Manual) Lymphocytes % (Manual) Monocytes % (Manual) Eosinophils % (Manual) Basophils % (Manual) Nucleated RBC % Seg Neutrophils # Seg Neutrophils # Man Lymphocytes # (Manual) Monocytes # (Manual) Eosinophils # (Manual) Basophils # (Manual) PT INR Fibrinogen dRVVT Confirm Interp Factor V Activity POC ABG pH POC ABG pCO2 POC ABG pO2 ABG pO2 ABG HCO3 ABG Base Excess ABG Hemoglobin Oxyhemoglobin Sodium Potassium 3.5 L Chloride 97.4 L Carbon Dioxide BUN 66 H Creatinine 1.4 H Glucose POC Glucose 116 H 106 H Lactic Acid Calcium Ionized Calcium Phosphorus 2.10 L Magnesium Direct Bilirubin AST ALT Alkaline Phosphatase Lactate Dehydrogenase Troponin T C-Reactive Protein Total Protein Albumin Prealbumin Triglycerides Cholesterol LDL Cholesterol Direct HDL Cholesterol 25-OH Vitamin D Total PTH Intact Urine pH Urine WBC (Auto) Urine Creatinine Urine Total Protein Fluid Total Protein Vancomycin Trough Rheumatoid Factor Complement C4 Miscellaneous Test Crossmatch 01/21/17 01/21/17 01/22/17 17:25 23:49 05:35 WBC RBC Hgb Hct MCV MCH MCHC RDW Plt Count Lymph % (Auto) [place] % (Auto) Lymph # [place] # Baso # Seg Neutrophils % Seg Neuts % (Manual) Lymphocytes % (Manual) Monocytes % (Manual) Eosinophils % (Manual) Basophils % (Manual) Nucleated RBC % Seg Neutrophils # Seg Neutrophils # Man Lymphocytes # (Manual) Monocytes # (Manual) Eosinophils # (Manual) Basophils # (Manual) PT INR Fibrinogen dRVVT Confirm Interp Factor V Activity POC ABG pH POC ABG pCO2 POC ABG pO2 ABG pO2 ABG HCO3 ABG Base Excess ABG Hemoglobin Oxyhemoglobin Sodium Potassium Chloride Carbon Dioxide BUN Creatinine Glucose POC Glucose 106 H 133 H 107 H Lactic Acid Calcium Ionized Calcium Phosphorus Magnesium Direct Bilirubin AST ALT Alkaline Phosphatase Lactate Dehydrogenase Troponin T C-Reactive Protein Total Protein Albumin Prealbumin Triglycerides Cholesterol LDL Cholesterol Direct HDL Cholesterol 25-OH Vitamin D Total PTH Intact Urine pH Urine WBC (Auto) Urine Creatinine Urine Total Protein Fluid Total Protein Vancomycin Trough Rheumatoid Factor Complement C4 Miscellaneous Test Crossmatch 01/22/17 01/22/17 01/22/17 07:20 07:20 11:31 WBC RBC 2.75 L Hgb 7.5 L Hct 22.7 L MCV MCH 27 L MCHC RDW 17.5 H Plt Count Lymph % (Auto) [place] % (Auto) Lymph # [place] # Baso # Seg Neutrophils % Seg Neuts % (Manual) Lymphocytes % (Manual) Monocytes % (Manual) Eosinophils % (Manual) Basophils % (Manual) Nucleated RBC % Seg Neutrophils # Seg Neutrophils # Man Lymphocytes # (Manual) Monocytes # (Manual) Eosinophils # (Manual) Basophils # (Manual) PT INR Fibrinogen dRVVT Confirm Interp Factor V Activity POC ABG pH POC ABG pCO2 POC ABG pO2 ABG pO2 ABG HCO3 ABG Base Excess ABG Hemoglobin Oxyhemoglobin Sodium Potassium 3.3 L Chloride Carbon Dioxide BUN 42 H Creatinine Glucose 105 H POC Glucose 124 H Lactic Acid Calcium Ionized Calcium Phosphorus 1.70 L Magnesium Direct Bilirubin AST ALT Alkaline Phosphatase Lactate Dehydrogenase Troponin T C-Reactive Protein Total Protein Albumin Prealbumin Triglycerides Cholesterol LDL Cholesterol Direct HDL Cholesterol 25-OH Vitamin D Total PTH Intact Urine pH Urine WBC (Auto) Urine Creatinine Urine Total Protein Fluid Total Protein Vancomycin Trough Rheumatoid Factor Complement C4 Miscellaneous Test Crossmatch 01/22/17 01/22/17 01/23/17 17:16 23:35 05:35 WBC RBC Hgb Hct MCV MCH MCHC RDW Plt Count Lymph % (Auto) [place] % (Auto) Lymph # [place] # Baso # Seg Neutrophils % Seg Neuts % (Manual) Lymphocytes % (Manual) Monocytes % (Manual) Eosinophils % (Manual) Basophils % (Manual) Nucleated RBC % Seg Neutrophils # Seg Neutrophils # Man Lymphocytes # (Manual) Monocytes # (Manual) Eosinophils # (Manual) Basophils # (Manual) PT INR Fibrinogen dRVVT Confirm Interp Factor V Activity POC ABG pH POC ABG pCO2 POC ABG pO2 ABG pO2 ABG HCO3 ABG Base Excess ABG Hemoglobin Oxyhemoglobin Sodium Potassium Chloride Carbon Dioxide BUN Creatinine Glucose POC Glucose 135 H 120 H 111 H Lactic Acid Calcium Ionized Calcium Phosphorus Magnesium Direct Bilirubin AST ALT Alkaline Phosphatase Lactate Dehydrogenase Troponin T C-Reactive Protein Total Protein Albumin Prealbumin Triglycerides Cholesterol LDL Cholesterol Direct HDL Cholesterol 25-OH Vitamin D Total PTH Intact Urine pH Urine WBC (Auto) Urine Creatinine Urine Total Protein Fluid Total Protein Vancomycin Trough Rheumatoid Factor Complement C4 Miscellaneous Test Crossmatch 01/23/17 01/23/17 01/23/17 06:10 17:27 23:44 WBC RBC Hgb Hct MCV MCH MCHC RDW Plt Count Lymph % (Auto) [place] % (Auto) Lymph # [place] # Baso # Seg Neutrophils % Seg Neuts % (Manual) Lymphocytes % (Manual) Monocytes % (Manual) Eosinophils % (Manual) Basophils % (Manual) Nucleated RBC % Seg Neutrophils # Seg Neutrophils # Man Lymphocytes # (Manual) Monocytes # (Manual) Eosinophils # (Manual) Basophils # (Manual) PT INR Fibrinogen dRVVT Confirm Interp Factor V Activity POC ABG pH POC ABG pCO2 POC ABG pO2 ABG pO2 ABG HCO3 ABG Base Excess ABG Hemoglobin Oxyhemoglobin Sodium Potassium 3.3 L Chloride Carbon Dioxide BUN 66 H Creatinine 1.3 H Glucose 109 H POC Glucose 120 H 115 H Lactic Acid Calcium Ionized Calcium Phosphorus 2.20 L D Magnesium Direct Bilirubin AST ALT Alkaline Phosphatase Lactate Dehydrogenase Troponin T C-Reactive Protein Total Protein Albumin Prealbumin Triglycerides Cholesterol LDL Cholesterol Direct HDL Cholesterol 25-OH Vitamin D Total PTH Intact Urine pH Urine WBC (Auto) Urine Creatinine Urine Total Protein Fluid Total Protein Vancomycin Trough Rheumatoid Factor Complement C4 Miscellaneous Test Crossmatch 01/24/17 01/24/17 01/24/17 05:19 05:50 12:19 WBC RBC Hgb Hct MCV MCH MCHC RDW Plt Count Lymph % (Auto) [place] % (Auto) Lymph # [place] # Baso # Seg Neutrophils % Seg Neuts % (Manual) Lymphocytes % (Manual) Monocytes % (Manual) Eosinophils % (Manual) Basophils % (Manual) Nucleated RBC % Seg Neutrophils # Seg Neutrophils # Man Lymphocytes # (Manual) Monocytes # (Manual) Eosinophils # (Manual) Basophils # (Manual) PT INR Fibrinogen dRVVT Confirm Interp Factor V Activity POC ABG pH POC ABG pCO2 POC ABG pO2 ABG pO2 ABG HCO3 ABG Base Excess ABG Hemoglobin Oxyhemoglobin Sodium Potassium Chloride Carbon Dioxide BUN 47 H Creatinine Glucose 117 H POC Glucose 126 H 119 H Lactic Acid Calcium Ionized Calcium Phosphorus 2.30 L Magnesium 1.60 L Direct Bilirubin AST ALT Alkaline Phosphatase Lactate Dehydrogenase Troponin T C-Reactive Protein Total Protein Albumin Prealbumin Triglycerides Cholesterol LDL Cholesterol Direct HDL Cholesterol 25-OH Vitamin D Total PTH Intact Urine pH Urine WBC (Auto) Urine Creatinine Urine Total Protein Fluid Total Protein Vancomycin Trough Rheumatoid Factor Complement C4 Miscellaneous Test Crossmatch 01/24/17 01/25/17 01/25/17 17:08 00:37 04:00 WBC RBC Hgb Hct MCV MCH MCHC RDW Plt Count Lymph % (Auto) [place] % (Auto) Lymph # [place] # Baso # Seg Neutrophils % Seg Neuts % (Manual) Lymphocytes % (Manual) Monocytes % (Manual) Eosinophils % (Manual) Basophils % (Manual) Nucleated RBC % Seg Neutrophils # Seg Neutrophils # Man Lymphocytes # (Manual) Monocytes # (Manual) Eosinophils # (Manual) Basophils # (Manual) PT INR Fibrinogen dRVVT Confirm Interp Factor V Activity POC ABG pH POC ABG pCO2 POC ABG pO2 ABG pO2 ABG HCO3 ABG Base Excess ABG Hemoglobin Oxyhemoglobin Sodium Potassium Chloride Carbon Dioxide BUN 72 H Creatinine 1.3 H Glucose POC Glucose 127 H 110 H Lactic Acid Calcium Ionized Calcium Phosphorus Magnesium Direct Bilirubin AST ALT Alkaline Phosphatase Lactate Dehydrogenase Troponin T C-Reactive Protein Total Protein Albumin Prealbumin Triglycerides Cholesterol LDL Cholesterol Direct HDL Cholesterol 25-OH Vitamin D Total PTH Intact Urine pH Urine WBC (Auto) Urine Creatinine Urine Total Protein Fluid Total Protein Vancomycin Trough Rheumatoid Factor Complement C4 Miscellaneous Test Crossmatch 01/25/17 01/25/17 01/25/17 04:00 11:15 13:05 WBC RBC 2.49 L Hgb 6.7 L Hct 20.9 L MCV MCH 27 L MCHC RDW 18.8 H Plt Count Lymph % (Auto) [place] % (Auto) 10.1 H Lymph # [place] # 1.0 H Baso # Seg Neutrophils % Seg Neuts % (Manual) Lymphocytes % (Manual) Monocytes % (Manual) Eosinophils % (Manual) Basophils % (Manual) Nucleated RBC % Seg Neutrophils # Seg Neutrophils # Man Lymphocytes # (Manual) Monocytes # (Manual) Eosinophils # (Manual) Basophils # (Manual) PT INR Fibrinogen dRVVT Confirm Interp Factor V Activity POC ABG pH POC ABG pCO2 POC ABG pO2 ABG pO2 ABG HCO3 ABG Base Excess ABG Hemoglobin Oxyhemoglobin Sodium Potassium Chloride Carbon Dioxide BUN Creatinine Glucose POC Glucose 128 H Lactic Acid Calcium Ionized Calcium Phosphorus Magnesium Direct Bilirubin AST ALT Alkaline Phosphatase Lactate Dehydrogenase Troponin T C-Reactive Protein Total Protein Albumin Prealbumin Triglycerides Cholesterol LDL Cholesterol Direct HDL Cholesterol 25-OH Vitamin D Total PTH Intact Urine pH Urine WBC (Auto) Urine Creatinine Urine Total Protein Fluid Total Protein Vancomycin Trough Rheumatoid Factor Complement C4 Miscellaneous Test Crossmatch See Detail 01/25/17 01/25/17 01/26/17 18:02 23:07 01:20 WBC RBC Hgb Hct MCV MCH MCHC RDW Plt Count Lymph % (Auto) [place] % (Auto) Lymph # [place] # Baso # Seg Neutrophils % Seg Neuts % (Manual) Lymphocytes % (Manual) Monocytes % (Manual) Eosinophils % (Manual) Basophils % (Manual) Nucleated RBC % Seg Neutrophils # Seg Neutrophils # Man Lymphocytes # (Manual) Monocytes # (Manual) Eosinophils # (Manual) Basophils # (Manual) PT INR Fibrinogen dRVVT Confirm Interp Factor V Activity POC ABG pH POC ABG pCO2 POC ABG pO2 ABG pO2 ABG HCO3 ABG Base Excess ABG Hemoglobin Oxyhemoglobin Sodium Potassium Chloride Carbon Dioxide BUN Creatinine Glucose POC Glucose 120 H 123 H 112 H Lactic Acid Calcium Ionized Calcium Phosphorus Magnesium Direct Bilirubin AST ALT Alkaline Phosphatase Lactate Dehydrogenase Troponin T C-Reactive Protein Total Protein Albumin Prealbumin Triglycerides Cholesterol LDL Cholesterol Direct HDL Cholesterol 25-OH Vitamin D Total PTH Intact Urine pH Urine WBC (Auto) Urine Creatinine Urine Total Protein Fluid Total Protein Vancomycin Trough Rheumatoid Factor Complement C4 Miscellaneous Test Crossmatch 01/26/17 01/26/17 01/26/17 04:20 04:20 11:23 WBC 13.1 H RBC 3.28 L Hgb 9.0 L Hct 26.9 L D MCV MCH 27 L MCHC RDW 17.2 H Plt Count Lymph % (Auto) [place] % (Auto) 9.0 H Lymph # [place] # 1.2 H Baso # Seg Neutrophils % 73.1 H Seg Neuts % (Manual) Lymphocytes % (Manual) Monocytes % (Manual) Eosinophils % (Manual) Basophils % (Manual) Nucleated RBC % Seg Neutrophils # 9.6 H Seg Neutrophils # Man Lymphocytes # (Manual) Monocytes # (Manual) Eosinophils # (Manual) Basophils # (Manual) PT INR Fibrinogen dRVVT Confirm Interp Factor V Activity POC ABG pH POC ABG pCO2 POC ABG pO2 ABG pO2 ABG HCO3 ABG Base Excess ABG Hemoglobin Oxyhemoglobin Sodium Potassium Chloride Carbon Dioxide BUN 51 H Creatinine Glucose 117 H POC Glucose 125 H Lactic Acid Calcium Ionized Calcium Phosphorus Magnesium Direct Bilirubin AST ALT Alkaline Phosphatase Lactate Dehydrogenase Troponin T C-Reactive Protein Total Protein Albumin Prealbumin Triglycerides Cholesterol LDL Cholesterol Direct HDL Cholesterol 25-OH Vitamin D Total PTH Intact Urine pH Urine WBC (Auto) Urine Creatinine Urine Total Protein Fluid Total Protein Vancomycin Trough Rheumatoid Factor Complement C4 Miscellaneous Test Crossmatch 01/26/17 01/27/17 01/27/17 17:11 00:30 04:00 WBC RBC Hgb Hct MCV MCH MCHC RDW Plt Count Lymph % (Auto) [place] % (Auto) Lymph # [place] # Baso # Seg Neutrophils % Seg Neuts % (Manual) Lymphocytes % (Manual) Monocytes % (Manual) Eosinophils % (Manual) Basophils % (Manual) Nucleated RBC % Seg Neutrophils # Seg Neutrophils # Man Lymphocytes # (Manual) Monocytes # (Manual) Eosinophils # (Manual) Basophils # (Manual) PT INR Fibrinogen dRVVT Confirm Interp Factor V Activity POC ABG pH POC ABG pCO2 POC ABG pO2 ABG pO2 ABG HCO3 ABG Base Excess ABG Hemoglobin Oxyhemoglobin Sodium Potassium Chloride 97.7 L Carbon Dioxide 21 L BUN 79 H Creatinine 1.7 H D Glucose 112 H POC Glucose 133 H 135 H Lactic Acid Calcium Ionized Calcium Phosphorus 5.00 H D Magnesium Direct Bilirubin AST ALT Alkaline Phosphatase Lactate Dehydrogenase Troponin T C-Reactive Protein Total Protein Albumin Prealbumin Triglycerides Cholesterol LDL Cholesterol Direct HDL Cholesterol 25-OH Vitamin D Total PTH Intact Urine pH Urine WBC (Auto) Urine Creatinine Urine Total Protein Fluid Total Protein Vancomycin Trough Rheumatoid Factor Complement C4 Miscellaneous Test Crossmatch 01/27/17 01/27/17 01/27/17 05:12 12:18 17:25 WBC RBC Hgb Hct MCV MCH MCHC RDW Plt Count Lymph % (Auto) [place] % (Auto) Lymph # [place] # Baso # Seg Neutrophils % Seg Neuts % (Manual) Lymphocytes % (Manual) Monocytes % (Manual) Eosinophils % (Manual) Basophils % (Manual) Nucleated RBC % Seg Neutrophils # Seg Neutrophils # Man Lymphocytes # (Manual) Monocytes # (Manual) Eosinophils # (Manual) Basophils # (Manual) PT INR Fibrinogen dRVVT Confirm Interp Factor V Activity POC ABG pH POC ABG pCO2 POC ABG pO2 ABG pO2 ABG HCO3 ABG Base Excess ABG Hemoglobin Oxyhemoglobin Sodium Potassium Chloride Carbon Dioxide BUN Creatinine Glucose POC Glucose 116 H 153 H 152 H Lactic Acid Calcium Ionized Calcium Phosphorus Magnesium Direct Bilirubin AST ALT Alkaline Phosphatase Lactate Dehydrogenase Troponin T C-Reactive Protein Total Protein Albumin Prealbumin Triglycerides Cholesterol LDL Cholesterol Direct HDL Cholesterol 25-OH Vitamin D Total PTH Intact Urine pH Urine WBC (Auto) Urine Creatinine Urine Total Protein Fluid Total Protein Vancomycin Trough Rheumatoid Factor Complement C4 Miscellaneous Test Crossmatch 01/27/17 01/28/17 01/28/17 23:42 04:00 04:00 WBC 14.4 H RBC 2.82 L Hgb 7.4 L Hct 23.5 L MCV MCH 26 L MCHC RDW 17.6 H Plt Count Lymph % (Auto) 10.2 L [place] % (Auto) 11.0 H Lymph # [place] # 1.6 H Baso # Seg Neutrophils % 78.0 H Seg Neuts % (Manual) Lymphocytes % (Manual) Monocytes % (Manual) Eosinophils % (Manual) Basophils % (Manual) Nucleated RBC % Seg Neutrophils # 11.3 H Seg Neutrophils # Man Lymphocytes # (Manual) Monocytes # (Manual) Eosinophils # (Manual) Basophils # (Manual) PT INR Fibrinogen dRVVT Confirm Interp Factor V Activity POC ABG pH POC ABG pCO2 POC ABG pO2 ABG pO2 ABG HCO3 ABG Base Excess ABG Hemoglobin Oxyhemoglobin Sodium Potassium Chloride Carbon Dioxide BUN 55 H Creatinine 1.3 H Glucose 114 H POC Glucose 121 H Lactic Acid Calcium Ionized Calcium Phosphorus Magnesium Direct Bilirubin AST ALT Alkaline Phosphatase Lactate Dehydrogenase Troponin T C-Reactive Protein Total Protein Albumin 1.4 L Prealbumin Triglycerides Cholesterol LDL Cholesterol Direct HDL Cholesterol 25-OH Vitamin D Total PTH Intact Urine pH Urine WBC (Auto) Urine Creatinine Urine Total Protein Fluid Total Protein Vancomycin Trough Rheumatoid Factor Complement C4 Miscellaneous Test Crossmatch 01/28/17 01/28/17 01/29/17 04:59 12:30 00:02 WBC RBC Hgb Hct MCV MCH MCHC RDW Plt Count Lymph % (Auto) [place] % (Auto) Lymph # [place] # Baso # Seg Neutrophils % Seg Neuts % (Manual) Lymphocytes % (Manual) Monocytes % (Manual) Eosinophils % (Manual) Basophils % (Manual) Nucleated RBC % Seg Neutrophils # Seg Neutrophils # Man Lymphocytes # (Manual) Monocytes # (Manual) Eosinophils # (Manual) Basophils # (Manual) PT INR Fibrinogen dRVVT Confirm Interp Factor V Activity POC ABG pH POC ABG pCO2 POC ABG pO2 ABG pO2 ABG HCO3 ABG Base Excess ABG Hemoglobin Oxyhemoglobin Sodium Potassium Chloride Carbon Dioxide BUN Creatinine Glucose POC Glucose 126 H 119 H 138 H Lactic Acid Calcium Ionized Calcium Phosphorus Magnesium Direct Bilirubin AST ALT Alkaline Phosphatase Lactate Dehydrogenase Troponin T C-Reactive Protein Total Protein Albumin Prealbumin Triglycerides Cholesterol LDL Cholesterol Direct HDL Cholesterol 25-OH Vitamin D Total PTH Intact Urine pH Urine WBC (Auto) Urine Creatinine Urine Total Protein Fluid Total Protein Vancomycin Trough Rheumatoid Factor Complement C4 Miscellaneous Test Crossmatch 01/29/17 01/29/17 01/29/17 04:58 06:15 11:35 WBC RBC Hgb Hct MCV MCH MCHC RDW Plt Count Lymph % (Auto) [place] % (Auto) Lymph # [place] # Baso # Seg Neutrophils % Seg Neuts % (Manual) Lymphocytes % (Manual) Monocytes % (Manual) Eosinophils % (Manual) Basophils % (Manual) Nucleated RBC % Seg Neutrophils # Seg Neutrophils # Man Lymphocytes # (Manual) Monocytes # (Manual) Eosinophils # (Manual) Basophils # (Manual) PT INR Fibrinogen dRVVT Confirm Interp Factor V Activity POC ABG pH POC ABG pCO2 POC ABG pO2 ABG pO2 ABG HCO3 ABG Base Excess ABG Hemoglobin Oxyhemoglobin Sodium Potassium Chloride Carbon Dioxide BUN 85 H Creatinine 1.7 H Glucose 105 H POC Glucose 114 H 110 H Lactic Acid Calcium Ionized Calcium Phosphorus Magnesium 2.40 H Direct Bilirubin AST ALT Alkaline Phosphatase Lactate Dehydrogenase Troponin T C-Reactive Protein Total Protein Albumin Prealbumin Triglycerides Cholesterol LDL Cholesterol Direct HDL Cholesterol 25-OH Vitamin D Total PTH Intact Urine pH Urine WBC (Auto) Urine Creatinine Urine Total Protein Fluid Total Protein Vancomycin Trough Rheumatoid Factor Complement C4 Miscellaneous Test Crossmatch 01/29/17 01/29/17 01/30/17 18:24 23:41 05:12 WBC RBC Hgb Hct MCV MCH MCHC RDW Plt Count Lymph % (Auto) [place] % (Auto) Lymph # [place] # Baso # Seg Neutrophils % Seg Neuts % (Manual) Lymphocytes % (Manual) Monocytes % (Manual) Eosinophils % (Manual) Basophils % (Manual) Nucleated RBC % Seg Neutrophils # Seg Neutrophils # Man Lymphocytes # (Manual) Monocytes # (Manual) Eosinophils # (Manual) Basophils # (Manual) PT INR Fibrinogen dRVVT Confirm Interp Factor V Activity POC ABG pH POC ABG pCO2 POC ABG pO2 ABG pO2 ABG HCO3 ABG Base Excess ABG Hemoglobin Oxyhemoglobin Sodium Potassium Chloride Carbon Dioxide BUN Creatinine Glucose POC Glucose 109 H 134 H 109 H Lactic Acid Calcium Ionized Calcium Phosphorus Magnesium Direct Bilirubin AST ALT Alkaline Phosphatase Lactate Dehydrogenase Troponin T C-Reactive Protein Total Protein Albumin Prealbumin Triglycerides Cholesterol LDL Cholesterol Direct HDL Cholesterol 25-OH Vitamin D Total PTH Intact Urine pH Urine WBC (Auto) Urine Creatinine Urine Total Protein Fluid Total Protein Vancomycin Trough Rheumatoid Factor Complement C4 Miscellaneous Test Crossmatch 01/30/17 01/30/17 01/30/17 11:26 17:43 23:39 WBC RBC Hgb Hct MCV MCH MCHC RDW Plt Count Lymph % (Auto) [place] % (Auto) Lymph # [place] # Baso # Seg Neutrophils % Seg Neuts % (Manual) Lymphocytes % (Manual) Monocytes % (Manual) Eosinophils % (Manual) Basophils % (Manual) Nucleated RBC % Seg Neutrophils # Seg Neutrophils # Man Lymphocytes # (Manual) Monocytes # (Manual) Eosinophils # (Manual) Basophils # (Manual) PT INR Fibrinogen dRVVT Confirm Interp Factor V Activity POC ABG pH POC ABG pCO2 POC ABG pO2 ABG pO2 ABG HCO3 ABG Base Excess ABG Hemoglobin Oxyhemoglobin Sodium Potassium Chloride Carbon Dioxide BUN Creatinine Glucose POC Glucose 135 H 143 H 122 H Lactic Acid Calcium Ionized Calcium Phosphorus Magnesium Direct Bilirubin AST ALT Alkaline Phosphatase Lactate Dehydrogenase Troponin T C-Reactive Protein Total Protein Albumin Prealbumin Triglycerides Cholesterol LDL Cholesterol Direct HDL Cholesterol 25-OH Vitamin D Total PTH Intact Urine pH Urine WBC (Auto) Urine Creatinine Urine Total Protein Fluid Total Protein Vancomycin Trough Rheumatoid Factor Complement C4 Miscellaneous Test Crossmatch 01/31/17 01/31/17 01/31/17 04:00 05:40 11:12 WBC RBC Hgb Hct MCV MCH MCHC RDW Plt Count Lymph % (Auto) [place] % (Auto) Lymph # [place] # Baso # Seg Neutrophils % Seg Neuts % (Manual) Lymphocytes % (Manual) Monocytes % (Manual) Eosinophils % (Manual) Basophils % (Manual) Nucleated RBC % Seg Neutrophils # Seg Neutrophils # Man Lymphocytes # (Manual) Monocytes # (Manual) Eosinophils # (Manual) Basophils # (Manual) PT INR Fibrinogen dRVVT Confirm Interp Factor V Activity POC ABG pH POC ABG pCO2 POC ABG pO2 ABG pO2 ABG HCO3 ABG Base Excess ABG Hemoglobin Oxyhemoglobin Sodium Potassium Chloride Carbon Dioxide BUN 78 H Creatinine 1.5 H Glucose 108 H POC Glucose 123 H Lactic Acid Calcium Ionized Calcium Phosphorus Magnesium Direct Bilirubin AST ALT Alkaline Phosphatase Lactate Dehydrogenase Troponin T C-Reactive Protein 8.10 H Total Protein Albumin Prealbumin Triglycerides Cholesterol LDL Cholesterol Direct HDL Cholesterol 25-OH Vitamin D Total PTH Intact Urine pH Urine WBC (Auto) Urine Creatinine Urine Total Protein Fluid Total Protein Vancomycin Trough Rheumatoid Factor Complement C4 Miscellaneous Test Crossmatch 01/31/17 01/31/17 01/31/17 11:16 17:45 17:50 WBC RBC Hgb Hct MCV MCH MCHC RDW Plt Count Lymph % (Auto) [place] % (Auto) Lymph # [place] # Baso # Seg Neutrophils % Seg Neuts % (Manual) Lymphocytes % (Manual) Monocytes % (Manual) Eosinophils % (Manual) Basophils % (Manual) Nucleated RBC % Seg Neutrophils # Seg Neutrophils # Man Lymphocytes # (Manual) Monocytes # (Manual) Eosinophils # (Manual) Basophils # (Manual) PT INR Fibrinogen dRVVT Confirm Interp Factor V Activity POC ABG pH POC ABG pCO2 POC ABG pO2 ABG pO2 ABG HCO3 ABG Base Excess ABG Hemoglobin Oxyhemoglobin Sodium Potassium Chloride Carbon Dioxide BUN Creatinine Glucose POC Glucose 119 H 111 H Lactic Acid Calcium Ionized Calcium Phosphorus Magnesium Direct Bilirubin AST ALT Alkaline Phosphatase Lactate Dehydrogenase Troponin T C-Reactive Protein Total Protein Albumin Prealbumin Triglycerides Cholesterol LDL Cholesterol Direct HDL Cholesterol 25-OH Vitamin D Total PTH Intact 6.76 L Urine pH Urine WBC (Auto) Urine Creatinine Urine Total Protein Fluid Total Protein Vancomycin Trough Rheumatoid Factor Complement C4 Miscellaneous Test Crossmatch 01/31/17 02/01/17 02/01/17 23:19 05:42 09:24 WBC RBC Hgb Hct MCV MCH MCHC RDW Plt Count Lymph % (Auto) [place] % (Auto) Lymph # [place] # Baso # Seg Neutrophils % Seg Neuts % (Manual) Lymphocytes % (Manual) Monocytes % (Manual) Eosinophils % (Manual) Basophils % (Manual) Nucleated RBC % Seg Neutrophils # Seg Neutrophils # Man Lymphocytes # (Manual) Monocytes # (Manual) Eosinophils # (Manual) Basophils # (Manual) PT INR Fibrinogen dRVVT Confirm Interp Factor V Activity POC ABG pH POC ABG pCO2 POC ABG pO2 ABG pO2 ABG HCO3 ABG Base Excess ABG Hemoglobin Oxyhemoglobin Sodium Potassium Chloride Carbon Dioxide BUN Creatinine Glucose POC Glucose 118 H 122 H Lactic Acid Calcium Ionized Calcium Phosphorus Magnesium 2.60 H Direct Bilirubin AST ALT Alkaline Phosphatase Lactate Dehydrogenase Troponin T C-Reactive Protein Total Protein Albumin Prealbumin Triglycerides Cholesterol LDL Cholesterol Direct HDL Cholesterol 25-OH Vitamin D Total PTH Intact Urine pH Urine WBC (Auto) Urine Creatinine Urine Total Protein Fluid Total Protein Vancomycin Trough Rheumatoid Factor Complement C4 Miscellaneous Test Crossmatch 02/01/17 02/01/17 02/02/17 09:24 12:15 07:40 WBC RBC Hgb Hct MCV MCH MCHC RDW Plt Count Lymph % (Auto) [place] % (Auto) Lymph # [place] # Baso # Seg Neutrophils % Seg Neuts % (Manual) Lymphocytes % (Manual) Monocytes % (Manual) Eosinophils % (Manual) Basophils % (Manual) Nucleated RBC % Seg Neutrophils # Seg Neutrophils # Man Lymphocytes # (Manual) Monocytes # (Manual) Eosinophils # (Manual) Basophils # (Manual) PT INR Fibrinogen dRVVT Confirm Interp Factor V Activity POC ABG pH POC ABG pCO2 POC ABG pO2 ABG pO2 ABG HCO3 ABG Base Excess ABG Hemoglobin Oxyhemoglobin Sodium Potassium Chloride Carbon Dioxide BUN 102 H 72 H Creatinine 1.9 H 1.5 H Glucose 120 H POC Glucose 156 H Lactic Acid Calcium Ionized Calcium Phosphorus Magnesium Direct Bilirubin AST ALT Alkaline Phosphatase Lactate Dehydrogenase Troponin T C-Reactive Protein Total Protein Albumin Prealbumin Triglycerides Cholesterol LDL Cholesterol Direct HDL Cholesterol 25-OH Vitamin D Total PTH Intact Urine pH Urine WBC (Auto) Urine Creatinine Urine Total Protein Fluid Total Protein Vancomycin Trough Rheumatoid Factor Complement C4 Miscellaneous Test Crossmatch 02/02/17 02/02/17 02/03/17 10:16 12:11 00:08 WBC 12.0 H RBC 3.08 L Hgb 8.3 L Hct 25.6 L MCV MCH 27 L MCHC RDW 18.2 H Plt Count Lymph % (Auto) [place] % (Auto) Lymph # [place] # Baso # Seg Neutrophils % 78.4 H Seg Neuts % (Manual) Lymphocytes % (Manual) Monocytes % (Manual) Eosinophils % (Manual) Basophils % (Manual) Nucleated RBC % Seg Neutrophils # 9.4 H Seg Neutrophils # Man Lymphocytes # (Manual) Monocytes # (Manual) Eosinophils # (Manual) Basophils # (Manual) PT INR Fibrinogen dRVVT Confirm Interp Factor V Activity POC ABG pH POC ABG pCO2 POC ABG pO2 ABG pO2 ABG HCO3 ABG Base Excess ABG Hemoglobin Oxyhemoglobin Sodium Potassium Chloride Carbon Dioxide BUN Creatinine Glucose POC Glucose 110 H 120 H Lactic Acid Calcium Ionized Calcium Phosphorus Magnesium Direct Bilirubin AST ALT Alkaline Phosphatase Lactate Dehydrogenase Troponin T C-Reactive Protein Total Protein Albumin Prealbumin Triglycerides Cholesterol LDL Cholesterol Direct HDL Cholesterol 25-OH Vitamin D Total PTH Intact Urine pH Urine WBC (Auto) Urine Creatinine Urine Total Protein Fluid Total Protein Vancomycin Trough Rheumatoid Factor Complement C4 Miscellaneous Test Crossmatch 02/03/17 02/03/17 02/03/17 05:41 07:38 11:31 WBC RBC Hgb Hct MCV MCH MCHC RDW Plt Count Lymph % (Auto) [place] % (Auto) Lymph # [place] # Baso # Seg Neutrophils % Seg Neuts % (Manual) Lymphocytes % (Manual) Monocytes % (Manual) Eosinophils % (Manual) Basophils % (Manual) Nucleated RBC % Seg Neutrophils # Seg Neutrophils # Man Lymphocytes # (Manual) Monocytes # (Manual) Eosinophils # (Manual) Basophils # (Manual) PT INR Fibrinogen dRVVT Confirm Interp Factor V Activity POC ABG pH POC ABG pCO2 POC ABG pO2 ABG pO2 ABG HCO3 ABG Base Excess ABG Hemoglobin Oxyhemoglobin Sodium 134 L Potassium Chloride Carbon Dioxide 21 L BUN 91 H Creatinine 1.9 H Glucose 110 H POC Glucose 119 H 119 H Lactic Acid Calcium 10.3 H Ionized Calcium Phosphorus Magnesium Direct Bilirubin AST ALT Alkaline Phosphatase Lactate Dehydrogenase Troponin T C-Reactive Protein Total Protein Albumin Prealbumin Triglycerides Cholesterol LDL Cholesterol Direct HDL Cholesterol 25-OH Vitamin D Total PTH Intact Urine pH Urine WBC (Auto) Urine Creatinine Urine Total Protein Fluid Total Protein Vancomycin Trough Rheumatoid Factor Complement C4 Miscellaneous Test Crossmatch 02/03/17 02/04/17 02/04/17 17:13 04:00 05:18 WBC RBC Hgb Hct MCV MCH MCHC RDW Plt Count Lymph % (Auto) [place] % (Auto) Lymph # [place] # Baso # Seg Neutrophils % Seg Neuts % (Manual) Lymphocytes % (Manual) Monocytes % (Manual) Eosinophils % (Manual) Basophils % (Manual) Nucleated RBC % Seg Neutrophils # Seg Neutrophils # Man Lymphocytes # (Manual) Monocytes # (Manual) Eosinophils # (Manual) Basophils # (Manual) PT INR Fibrinogen dRVVT Confirm Interp Factor V Activity POC ABG pH POC ABG pCO2 POC ABG pO2 ABG pO2 ABG HCO3 ABG Base Excess ABG Hemoglobin Oxyhemoglobin Sodium 136 L Potassium Chloride Carbon Dioxide BUN 58 H Creatinine 1.3 H Glucose 103 H POC Glucose 133 H 132 H Lactic Acid Calcium Ionized Calcium Phosphorus 2.00 L D Magnesium 1.60 L Direct Bilirubin AST ALT Alkaline Phosphatase Lactate Dehydrogenase Troponin T C-Reactive Protein Total Protein Albumin Prealbumin Triglycerides Cholesterol LDL Cholesterol Direct HDL Cholesterol 25-OH Vitamin D Total PTH Intact Urine pH Urine WBC (Auto) Urine Creatinine Urine Total Protein Fluid Total Protein Vancomycin Trough Rheumatoid Factor Complement C4 Miscellaneous Test Crossmatch 02/05/17 02/05/17 02/05/17 00:01 04:00 06:42 WBC RBC Hgb Hct MCV MCH MCHC RDW Plt Count Lymph % (Auto) [place] % (Auto) Lymph # [place] # Baso # Seg Neutrophils % Seg Neuts % (Manual) Lymphocytes % (Manual) Monocytes % (Manual) Eosinophils % (Manual) Basophils % (Manual) Nucleated RBC % Seg Neutrophils # Seg Neutrophils # Man Lymphocytes # (Manual) Monocytes # (Manual) Eosinophils # (Manual) Basophils # (Manual) PT INR Fibrinogen dRVVT Confirm Interp Factor V Activity POC ABG pH POC ABG pCO2 POC ABG pO2 ABG pO2 ABG HCO3 ABG Base Excess ABG Hemoglobin Oxyhemoglobin Sodium Potassium Chloride Carbon Dioxide BUN 83 H Creatinine 1.8 H Glucose POC Glucose 119 H 110 H Lactic Acid Calcium 10.7 H Ionized Calcium Phosphorus Magnesium Direct Bilirubin AST ALT Alkaline Phosphatase Lactate Dehydrogenase Troponin T C-Reactive Protein Total Protein Albumin Prealbumin Triglycerides Cholesterol LDL Cholesterol Direct HDL Cholesterol 25-OH Vitamin D Total PTH Intact Urine pH Urine WBC (Auto) Urine Creatinine Urine Total Protein Fluid Total Protein Vancomycin Trough Rheumatoid Factor Complement C4 Miscellaneous Test Crossmatch 02/05/17 02/05/17 02/05/17 09:59 11:47 23:44 WBC RBC 2.69 L Hgb 7.2 L Hct 22.5 L MCV MCH 27 L MCHC RDW 18.6 H Plt Count Lymph % (Auto) [place] % (Auto) 9.2 H Lymph # [place] # 0.9 H Baso # Seg Neutrophils % Seg Neuts % (Manual) Lymphocytes % (Manual) Monocytes % (Manual) Eosinophils % (Manual) Basophils % (Manual) Nucleated RBC % Seg Neutrophils # Seg Neutrophils # Man Lymphocytes # (Manual) Monocytes # (Manual) Eosinophils # (Manual) Basophils # (Manual) PT INR Fibrinogen dRVVT Confirm Interp Factor V Activity POC ABG pH POC ABG pCO2 POC ABG pO2 ABG pO2 ABG HCO3 ABG Base Excess ABG Hemoglobin Oxyhemoglobin Sodium Potassium Chloride Carbon Dioxide BUN Creatinine Glucose POC Glucose 130 H 123 H Lactic Acid Calcium Ionized Calcium Phosphorus Magnesium Direct Bilirubin AST ALT Alkaline Phosphatase Lactate Dehydrogenase Troponin T C-Reactive Protein Total Protein Albumin Prealbumin Triglycerides Cholesterol LDL Cholesterol Direct HDL Cholesterol 25-OH Vitamin D Total PTH Intact Urine pH Urine WBC (Auto) Urine Creatinine Urine Total Protein Fluid Total Protein Vancomycin Trough Rheumatoid Factor Complement C4 Miscellaneous Test Crossmatch 02/06/17 02/06/17 02/06/17 04:45 05:58 12:01 WBC RBC Hgb Hct MCV MCH MCHC RDW Plt Count Lymph % (Auto) [place] % (Auto) Lymph # [place] # Baso # Seg Neutrophils % Seg Neuts % (Manual) Lymphocytes % (Manual) Monocytes % (Manual) Eosinophils % (Manual) Basophils % (Manual) Nucleated RBC % Seg Neutrophils # Seg Neutrophils # Man Lymphocytes # (Manual) Monocytes # (Manual) Eosinophils # (Manual) Basophils # (Manual) PT INR Fibrinogen dRVVT Confirm Interp Factor V Activity POC ABG pH POC ABG pCO2 POC ABG pO2 ABG pO2 ABG HCO3 ABG Base Excess ABG Hemoglobin Oxyhemoglobin Sodium Potassium Chloride Carbon Dioxide BUN 101 H Creatinine 2.0 H Glucose 102 H POC Glucose 115 H 132 H Lactic Acid Calcium 10.6 H Ionized Calcium Phosphorus Magnesium Direct Bilirubin AST ALT Alkaline Phosphatase 199 H Lactate Dehydrogenase Troponin T C-Reactive Protein Total Protein Albumin 1.4 L Prealbumin Triglycerides Cholesterol LDL Cholesterol Direct HDL Cholesterol 25-OH Vitamin D Total PTH Intact Urine pH Urine WBC (Auto) Urine Creatinine Urine Total Protein Fluid Total Protein Vancomycin Trough Rheumatoid Factor Complement C4 Miscellaneous Test Crossmatch 02/06/17 02/06/17 02/07/17 17:41 23:32 05:04 WBC RBC Hgb Hct MCV MCH MCHC RDW Plt Count Lymph % (Auto) [place] % (Auto) Lymph # [place] # Baso # Seg Neutrophils % Seg Neuts % (Manual) Lymphocytes % (Manual) Monocytes % (Manual) Eosinophils % (Manual) Basophils % (Manual) Nucleated RBC % Seg Neutrophils # Seg Neutrophils # Man Lymphocytes # (Manual) Monocytes # (Manual) Eosinophils # (Manual) Basophils # (Manual) PT INR Fibrinogen dRVVT Confirm Interp Factor V Activity POC ABG pH POC ABG pCO2 POC ABG pO2 ABG pO2 ABG HCO3 ABG Base Excess ABG Hemoglobin Oxyhemoglobin Sodium Potassium Chloride Carbon Dioxide BUN Creatinine Glucose POC Glucose 134 H 128 H 119 H Lactic Acid Calcium Ionized Calcium Phosphorus Magnesium Direct Bilirubin AST ALT Alkaline Phosphatase Lactate Dehydrogenase Troponin T C-Reactive Protein Total Protein Albumin Prealbumin Triglycerides Cholesterol LDL Cholesterol Direct HDL Cholesterol 25-OH Vitamin D Total PTH Intact Urine pH Urine WBC (Auto) Urine Creatinine Urine Total Protein Fluid Total Protein Vancomycin Trough Rheumatoid Factor Complement C4 Miscellaneous Test Crossmatch 02/07/17 02/07/17 02/07/17 06:30 11:20 17:13 WBC RBC Hgb Hct MCV MCH MCHC RDW Plt Count Lymph % (Auto) [place] % (Auto) Lymph # [place] # Baso # Seg Neutrophils % Seg Neuts % (Manual) Lymphocytes % (Manual) Monocytes % (Manual) Eosinophils % (Manual) Basophils % (Manual) Nucleated RBC % Seg Neutrophils # Seg Neutrophils # Man Lymphocytes # (Manual) Monocytes # (Manual) Eosinophils # (Manual) Basophils # (Manual) PT INR Fibrinogen dRVVT Confirm Interp Factor V Activity POC ABG pH POC ABG pCO2 POC ABG pO2 ABG pO2 ABG HCO3 ABG Base Excess ABG Hemoglobin Oxyhemoglobin Sodium Potassium 3.4 L Chloride Carbon Dioxide BUN 69 H Creatinine 1.5 H Glucose 105 H POC Glucose 117 H 110 H Lactic Acid Calcium Ionized Calcium Phosphorus Magnesium 1.50 L Direct Bilirubin AST ALT Alkaline Phosphatase Lactate Dehydrogenase Troponin T C-Reactive Protein Total Protein Albumin Prealbumin Triglycerides Cholesterol LDL Cholesterol Direct HDL Cholesterol 25-OH Vitamin D Total PTH Intact Urine pH Urine WBC (Auto) Urine Creatinine Urine Total Protein Fluid Total Protein Vancomycin Trough Rheumatoid Factor Complement C4 Miscellaneous Test Crossmatch 02/07/17 02/08/17 02/08/17 20:47 04:00 11:43 WBC RBC Hgb Hct MCV MCH MCHC RDW Plt Count Lymph % (Auto) [place] % (Auto) Lymph # [place] # Baso # Seg Neutrophils % Seg Neuts % (Manual) Lymphocytes % (Manual) Monocytes % (Manual) Eosinophils % (Manual) Basophils % (Manual) Nucleated RBC % Seg Neutrophils # Seg Neutrophils # Man Lymphocytes # (Manual) Monocytes # (Manual) Eosinophils # (Manual) Basophils # (Manual) PT INR Fibrinogen dRVVT Confirm Interp Factor V Activity POC ABG pH POC ABG pCO2 POC ABG pO2 ABG pO2 ABG HCO3 ABG Base Excess ABG Hemoglobin Oxyhemoglobin Sodium Potassium Chloride Carbon Dioxide BUN 86 H Creatinine 1.7 H Glucose POC Glucose 115 H 122 H Lactic Acid Calcium Ionized Calcium Phosphorus Magnesium 1.60 L Direct Bilirubin AST ALT Alkaline Phosphatase Lactate Dehydrogenase Troponin T C-Reactive Protein Total Protein Albumin Prealbumin Triglycerides Cholesterol LDL Cholesterol Direct HDL Cholesterol 25-OH Vitamin D Total PTH Intact Urine pH Urine WBC (Auto) Urine Creatinine Urine Total Protein Fluid Total Protein Vancomycin Trough Rheumatoid Factor Complement C4 Miscellaneous Test Crossmatch 02/08/17 02/09/17 02/09/17 17:36 05:44 11:30 WBC RBC Hgb Hct MCV MCH MCHC RDW Plt Count Lymph % (Auto) [place] % (Auto) Lymph # [place] # Baso # Seg Neutrophils % Seg Neuts % (Manual) Lymphocytes % (Manual) Monocytes % (Manual) Eosinophils % (Manual) Basophils % (Manual) Nucleated RBC % Seg Neutrophils # Seg Neutrophils # Man Lymphocytes # (Manual) Monocytes # (Manual) Eosinophils # (Manual) Basophils # (Manual) PT INR Fibrinogen dRVVT Confirm Interp Factor V Activity POC ABG pH POC ABG pCO2 POC ABG pO2 ABG pO2 ABG HCO3 ABG Base Excess ABG Hemoglobin Oxyhemoglobin Sodium Potassium Chloride Carbon Dioxide BUN Creatinine Glucose POC Glucose 125 H 117 H 120 H Lactic Acid Calcium Ionized Calcium Phosphorus Magnesium Direct Bilirubin AST ALT Alkaline Phosphatase Lactate Dehydrogenase Troponin T C-Reactive Protein Total Protein Albumin Prealbumin Triglycerides Cholesterol LDL Cholesterol Direct HDL Cholesterol 25-OH Vitamin D Total PTH Intact Urine pH Urine WBC (Auto) Urine Creatinine Urine Total Protein Fluid Total Protein Vancomycin Trough Rheumatoid Factor Complement C4 Miscellaneous Test Crossmatch 02/09/17 02/10/17 02/10/17 23:45 05:45 05:50 WBC RBC Hgb Hct MCV MCH MCHC RDW Plt Count Lymph % (Auto) [place] % (Auto) Lymph # [place] # Baso # Seg Neutrophils % Seg Neuts % (Manual) Lymphocytes % (Manual) Monocytes % (Manual) Eosinophils % (Manual) Basophils % (Manual) Nucleated RBC % Seg Neutrophils # Seg Neutrophils # Man Lymphocytes # (Manual) Monocytes # (Manual) Eosinophils # (Manual) Basophils # (Manual) PT INR Fibrinogen dRVVT Confirm Interp Factor V Activity POC ABG pH POC ABG pCO2 POC ABG pO2 ABG pO2 ABG HCO3 ABG Base Excess ABG Hemoglobin Oxyhemoglobin Sodium Potassium Chloride Carbon Dioxide BUN 85 H Creatinine 1.8 H Glucose 109 H POC Glucose 114 H 189 H Lactic Acid Calcium Ionized Calcium Phosphorus Magnesium 2.50 H Direct Bilirubin AST ALT Alkaline Phosphatase Lactate Dehydrogenase Troponin T C-Reactive Protein Total Protein Albumin Prealbumin Triglycerides Cholesterol LDL Cholesterol Direct HDL Cholesterol 25-OH Vitamin D Total PTH Intact Urine pH Urine WBC (Auto) Urine Creatinine Urine Total Protein Fluid Total Protein Vancomycin Trough Rheumatoid Factor Complement C4 Miscellaneous Test Crossmatch 02/10/17 02/10/17 02/10/17 05:51 11:55 17:42 WBC RBC Hgb Hct MCV MCH MCHC RDW Plt Count Lymph % (Auto) [place] % (Auto) Lymph # [place] # Baso # Seg Neutrophils % Seg Neuts % (Manual) Lymphocytes % (Manual) Monocytes % (Manual) Eosinophils % (Manual) Basophils % (Manual) Nucleated RBC % Seg Neutrophils # Seg Neutrophils # Man Lymphocytes # (Manual) Monocytes # (Manual) Eosinophils # (Manual) Basophils # (Manual) PT INR Fibrinogen dRVVT Confirm Interp Factor V Activity POC ABG pH POC ABG pCO2 POC ABG pO2 ABG pO2 ABG HCO3 ABG Base Excess ABG Hemoglobin Oxyhemoglobin Sodium Potassium Chloride Carbon Dioxide BUN Creatinine Glucose POC Glucose 106 H 146 H 132 H Lactic Acid Calcium Ionized Calcium Phosphorus Magnesium Direct Bilirubin AST ALT Alkaline Phosphatase Lactate Dehydrogenase Troponin T C-Reactive Protein Total Protein Albumin Prealbumin Triglycerides Cholesterol LDL Cholesterol Direct HDL Cholesterol 25-OH Vitamin D Total PTH Intact Urine pH Urine WBC (Auto) Urine Creatinine Urine Total Protein Fluid Total Protein Vancomycin Trough Rheumatoid Factor Complement C4 Miscellaneous Test Crossmatch 02/10/17 02/11/17 02/11/17 23:43 04:08 05:34 WBC RBC Hgb Hct MCV MCH MCHC RDW Plt Count Lymph % (Auto) [place] % (Auto) Lymph # [place] # Baso # Seg Neutrophils % Seg Neuts % (Manual) Lymphocytes % (Manual) Monocytes % (Manual) Eosinophils % (Manual) Basophils % (Manual) Nucleated RBC % Seg Neutrophils # Seg Neutrophils # Man Lymphocytes # (Manual) Monocytes # (Manual) Eosinophils # (Manual) Basophils # (Manual) PT INR Fibrinogen dRVVT Confirm Interp Factor V Activity POC ABG pH POC ABG pCO2 POC ABG pO2 ABG pO2 ABG HCO3 ABG Base Excess ABG Hemoglobin Oxyhemoglobin Sodium 136 L Potassium Chloride Carbon Dioxide BUN 65 H Creatinine 1.7 H Glucose 105 H POC Glucose 130 H 113 H Lactic Acid Calcium Ionized Calcium Phosphorus Magnesium Direct Bilirubin AST ALT Alkaline Phosphatase Lactate Dehydrogenase Troponin T C-Reactive Protein Total Protein Albumin Prealbumin Triglycerides Cholesterol LDL Cholesterol Direct HDL Cholesterol 25-OH Vitamin D Total PTH Intact Urine pH Urine WBC (Auto) Urine Creatinine Urine Total Protein Fluid Total Protein Vancomycin Trough Rheumatoid Factor Complement C4 Miscellaneous Test Crossmatch 02/11/17 02/11/17 02/12/17 11:56 23:18 06:19 WBC RBC Hgb Hct MCV MCH MCHC RDW Plt Count Lymph % (Auto) [place] % (Auto) Lymph # [place] # Baso # Seg Neutrophils % Seg Neuts % (Manual) Lymphocytes % (Manual) Monocytes % (Manual) Eosinophils % (Manual) Basophils % (Manual) Nucleated RBC % Seg Neutrophils # Seg Neutrophils # Man Lymphocytes # (Manual) Monocytes # (Manual) Eosinophils # (Manual) Basophils # (Manual) PT INR Fibrinogen dRVVT Confirm Interp Factor V Activity POC ABG pH POC ABG pCO2 POC ABG pO2 ABG pO2 ABG HCO3 ABG Base Excess ABG Hemoglobin Oxyhemoglobin Sodium 136 L Potassium Chloride 97.1 L Carbon Dioxide BUN 93 H Creatinine 2.4 H Glucose POC Glucose 126 H 119 H Lactic Acid Calcium 11.0 H Ionized Calcium Phosphorus Magnesium Direct Bilirubin AST ALT Alkaline Phosphatase Lactate Dehydrogenase Troponin T C-Reactive Protein Total Protein Albumin Prealbumin Triglycerides Cholesterol LDL Cholesterol Direct HDL Cholesterol 25-OH Vitamin D Total PTH Intact Urine pH Urine WBC (Auto) Urine Creatinine Urine Total Protein Fluid Total Protein Vancomycin Trough Rheumatoid Factor Complement C4 Miscellaneous Test Crossmatch 02/12/17 02/12/17 02/12/17 08:00 10:25 11:42 WBC 15.4 H RBC 2.63 L Hgb 6.9 L Hct 22.6 L MCV MCH 26 L MCHC RDW 20.5 H Plt Count Lymph % (Auto) [place] % (Auto) Lymph # [place] # Baso # Seg Neutrophils % Seg Neuts % (Manual) Lymphocytes % (Manual) Monocytes % (Manual) Eosinophils % (Manual) Basophils % (Manual) Nucleated RBC % Seg Neutrophils # Seg Neutrophils # Man Lymphocytes # (Manual) Monocytes # (Manual) Eosinophils # (Manual) Basophils # (Manual) PT INR Fibrinogen dRVVT Confirm Interp Factor V Activity POC ABG pH POC ABG pCO2 POC ABG pO2 ABG pO2 ABG HCO3 ABG Base Excess ABG Hemoglobin Oxyhemoglobin Sodium Potassium Chloride Carbon Dioxide BUN Creatinine Glucose POC Glucose 142 H Lactic Acid Calcium Ionized Calcium Phosphorus Magnesium Direct Bilirubin AST ALT Alkaline Phosphatase Lactate Dehydrogenase Troponin T C-Reactive Protein Total Protein Albumin Prealbumin Triglycerides Cholesterol LDL Cholesterol Direct HDL Cholesterol 25-OH Vitamin D Total PTH Intact Urine pH Urine WBC (Auto) Urine Creatinine Urine Total Protein Fluid Total Protein Vancomycin Trough Rheumatoid Factor Complement C4 Miscellaneous Test Crossmatch See Detail 02/12/17 02/13/17 02/13/17 18:04 00:04 05:00 WBC RBC Hgb Hct MCV MCH MCHC RDW Plt Count Lymph % (Auto) [place] % (Auto) Lymph # [place] # Baso # Seg Neutrophils % Seg Neuts % (Manual) Lymphocytes % (Manual) Monocytes % (Manual) Eosinophils % (Manual) Basophils % (Manual) Nucleated RBC % Seg Neutrophils # Seg Neutrophils # Man Lymphocytes # (Manual) Monocytes # (Manual) Eosinophils # (Manual) Basophils # (Manual) PT INR Fibrinogen dRVVT Confirm Interp Factor V Activity POC ABG pH POC ABG pCO2 POC ABG pO2 ABG pO2 ABG HCO3 ABG Base Excess ABG Hemoglobin Oxyhemoglobin Sodium 134 L Potassium Chloride 96.1 L Carbon Dioxide 20 L BUN 125 H Creatinine 3.0 H Glucose 111 H POC Glucose 135 H 109 H Lactic Acid Calcium 11.3 H Ionized Calcium Phosphorus Magnesium Direct Bilirubin AST ALT Alkaline Phosphatase Lactate Dehydrogenase Troponin T C-Reactive Protein Total Protein Albumin Prealbumin Triglycerides Cholesterol LDL Cholesterol Direct HDL Cholesterol 25-OH Vitamin D Total PTH Intact Urine pH Urine WBC (Auto) Urine Creatinine Urine Total Protein Fluid Total Protein Vancomycin Trough Rheumatoid Factor Complement C4 Miscellaneous Test Crossmatch 02/13/17 02/13/17 02/13/17 05:00 05:28 12:03 WBC 11.9 H RBC 2.92 L Hgb 7.8 L Hct 25.2 L MCV MCH 27 L MCHC RDW 19.3 H Plt Count Lymph % (Auto) [place] % (Auto) Lymph # [place] # Baso # Seg Neutrophils % Seg Neuts % (Manual) Lymphocytes % (Manual) Monocytes % (Manual) Eosinophils % (Manual) Basophils % (Manual) Nucleated RBC % Seg Neutrophils # Seg Neutrophils # Man Lymphocytes # (Manual) Monocytes # (Manual) Eosinophils # (Manual) Basophils # (Manual) PT INR Fibrinogen dRVVT Confirm Interp Factor V Activity POC ABG pH POC ABG pCO2 POC ABG pO2 ABG pO2 ABG HCO3 ABG Base Excess ABG Hemoglobin Oxyhemoglobin Sodium Potassium Chloride Carbon Dioxide BUN Creatinine Glucose POC Glucose 124 H 160 H Lactic Acid Calcium Ionized Calcium Phosphorus Magnesium Direct Bilirubin AST ALT Alkaline Phosphatase Lactate Dehydrogenase Troponin T C-Reactive Protein Total Protein Albumin Prealbumin Triglycerides Cholesterol LDL Cholesterol Direct HDL Cholesterol 25-OH Vitamin D Total PTH Intact Urine pH Urine WBC (Auto) Urine Creatinine Urine Total Protein Fluid Total Protein Vancomycin Trough Rheumatoid Factor Complement C4 Miscellaneous Test Crossmatch 02/13/17 02/14/17 02/14/17 18:09 06:16 08:08 WBC 15.2 H RBC 2.97 L Hgb 8.1 L Hct 26.3 L MCV MCH MCHC RDW 19.3 H Plt Count Lymph % (Auto) [place] % (Auto) Lymph # [place] # Baso # Seg Neutrophils % Seg Neuts % (Manual) Lymphocytes % (Manual) Monocytes % (Manual) Eosinophils % (Manual) Basophils % (Manual) Nucleated RBC % Seg Neutrophils # Seg Neutrophils # Man Lymphocytes # (Manual) Monocytes # (Manual) Eosinophils # (Manual) Basophils # (Manual) PT INR Fibrinogen dRVVT Confirm Interp Factor V Activity POC ABG pH POC ABG pCO2 POC ABG pO2 ABG pO2 ABG HCO3 ABG Base Excess ABG Hemoglobin Oxyhemoglobin Sodium Potassium Chloride Carbon Dioxide BUN Creatinine Glucose POC Glucose 110 H 112 H Lactic Acid Calcium Ionized Calcium Phosphorus Magnesium Direct Bilirubin AST ALT Alkaline Phosphatase Lactate Dehydrogenase Troponin T C-Reactive Protein Total Protein Albumin Prealbumin Triglycerides Cholesterol LDL Cholesterol Direct HDL Cholesterol 25-OH Vitamin D Total PTH Intact Urine pH Urine WBC (Auto) Urine Creatinine Urine Total Protein Fluid Total Protein Vancomycin Trough Rheumatoid Factor Complement C4 Miscellaneous Test Crossmatch 02/14/17 02/14/17 02/15/17 08:08 17:41 04:15 WBC RBC Hgb Hct MCV MCH MCHC RDW Plt Count Lymph % (Auto) [place] % (Auto) Lymph # [place] # Baso # Seg Neutrophils % Seg Neuts % (Manual) Lymphocytes % (Manual) Monocytes % (Manual) Eosinophils % (Manual) Basophils % (Manual) Nucleated RBC % Seg Neutrophils # Seg Neutrophils # Man Lymphocytes # (Manual) Monocytes # (Manual) Eosinophils # (Manual) Basophils # (Manual) PT INR Fibrinogen dRVVT Confirm Interp Factor V Activity POC ABG pH POC ABG pCO2 POC ABG pO2 ABG pO2 ABG HCO3 ABG Base Excess ABG Hemoglobin Oxyhemoglobin Sodium Potassium Chloride Carbon Dioxide 18 L 21 L BUN 79 H 113 H Creatinine 2.1 H 2.8 H Glucose POC Glucose 118 H Lactic Acid Calcium 10.7 H Ionized Calcium Phosphorus 1.70 L D Magnesium 1.60 L Direct Bilirubin AST ALT Alkaline Phosphatase Lactate Dehydrogenase Troponin T C-Reactive Protein Total Protein Albumin Prealbumin Triglycerides Cholesterol LDL Cholesterol Direct HDL Cholesterol 25-OH Vitamin D Total PTH Intact Urine pH Urine WBC (Auto) Urine Creatinine Urine Total Protein Fluid Total Protein Vancomycin Trough Rheumatoid Factor Complement C4 Miscellaneous Test Crossmatch 02/15/17 02/15/17 02/15/17 06:06 11:31 17:52 WBC RBC Hgb Hct MCV MCH MCHC RDW Plt Count Lymph % (Auto) [place] % (Auto) Lymph # [place] # Baso # Seg Neutrophils % Seg Neuts % (Manual) Lymphocytes % (Manual) Monocytes % (Manual) Eosinophils % (Manual) Basophils % (Manual) Nucleated RBC % Seg Neutrophils # Seg Neutrophils # Man Lymphocytes # (Manual) Monocytes # (Manual) Eosinophils # (Manual) Basophils # (Manual) PT INR Fibrinogen dRVVT Confirm Interp Factor V Activity POC ABG pH POC ABG pCO2 POC ABG pO2 ABG pO2 ABG HCO3 ABG Base Excess ABG Hemoglobin Oxyhemoglobin Sodium Potassium Chloride Carbon Dioxide BUN Creatinine Glucose POC Glucose 115 H 129 H 201 H Lactic Acid Calcium Ionized Calcium Phosphorus Magnesium Direct Bilirubin AST ALT Alkaline Phosphatase Lactate Dehydrogenase Troponin T C-Reactive Protein Total Protein Albumin Prealbumin Triglycerides Cholesterol LDL Cholesterol Direct HDL Cholesterol 25-OH Vitamin D Total PTH Intact Urine pH Urine WBC (Auto) Urine Creatinine Urine Total Protein Fluid Total Protein Vancomycin Trough Rheumatoid Factor Complement C4 Miscellaneous Test Crossmatch 02/15/17 02/15/17 02/15/17 19:08 19:08 19:08 WBC RBC Hgb Hct MCV MCH MCHC RDW Plt Count Lymph % (Auto) [place] % (Auto) Lymph # [place] # Baso # Seg Neutrophils % Seg Neuts % (Manual) Lymphocytes % (Manual) Monocytes % (Manual) Eosinophils % (Manual) Basophils % (Manual) Nucleated RBC % Seg Neutrophils # Seg Neutrophils # Man Lymphocytes # (Manual) Monocytes # (Manual) Eosinophils # (Manual) Basophils # (Manual) PT INR Fibrinogen dRVVT Confirm Interp Factor V Activity POC ABG pH POC ABG pCO2 POC ABG pO2 ABG pO2 ABG HCO3 ABG Base Excess ABG Hemoglobin Oxyhemoglobin Sodium Potassium Chloride Carbon Dioxide BUN Creatinine Glucose POC Glucose Lactic Acid Calcium Ionized Calcium 6.0 H Phosphorus Magnesium Direct Bilirubin AST ALT Alkaline Phosphatase Lactate Dehydrogenase Troponin T C-Reactive Protein Total Protein Albumin Prealbumin Triglycerides Cholesterol LDL Cholesterol Direct HDL Cholesterol 25-OH Vitamin D Total 13 L PTH Intact 10.88 L Urine pH Urine WBC (Auto) Urine Creatinine Urine Total Protein Fluid Total Protein Vancomycin Trough Rheumatoid Factor Complement C4 Miscellaneous Test Crossmatch 02/16/17 02/16/17 02/16/17 05:12 06:00 12:39 WBC RBC Hgb Hct MCV MCH MCHC RDW Plt Count Lymph % (Auto) [place] % (Auto) Lymph # [place] # Baso # Seg Neutrophils % Seg Neuts % (Manual) Lymphocytes % (Manual) Monocytes % (Manual) Eosinophils % (Manual) Basophils % (Manual) Nucleated RBC % Seg Neutrophils # Seg Neutrophils # Man Lymphocytes # (Manual) Monocytes # (Manual) Eosinophils # (Manual) Basophils # (Manual) PT INR Fibrinogen dRVVT Confirm Interp Factor V Activity POC ABG pH POC ABG pCO2 POC ABG pO2 ABG pO2 ABG HCO3 ABG Base Excess ABG Hemoglobin Oxyhemoglobin Sodium Potassium Chloride Carbon Dioxide BUN 74 H Creatinine 1.7 H Glucose 102 H POC Glucose 125 H 109 H Lactic Acid Calcium Ionized Calcium Phosphorus 2.10 L D Magnesium Direct Bilirubin AST ALT Alkaline Phosphatase Lactate Dehydrogenase Troponin T C-Reactive Protein Total Protein Albumin Prealbumin Triglycerides Cholesterol LDL Cholesterol Direct HDL Cholesterol 25-OH Vitamin D Total PTH Intact Urine pH Urine WBC (Auto) Urine Creatinine Urine Total Protein Fluid Total Protein Vancomycin Trough Rheumatoid Factor Complement C4 Miscellaneous Test Crossmatch 02/16/17 02/16/17 02/17/17 17:31 23:57 05:30 WBC RBC Hgb Hct MCV MCH MCHC RDW Plt Count Lymph % (Auto) [place] % (Auto) Lymph # [place] # Baso # Seg Neutrophils % Seg Neuts % (Manual) Lymphocytes % (Manual) Monocytes % (Manual) Eosinophils % (Manual) Basophils % (Manual) Nucleated RBC % Seg Neutrophils # Seg Neutrophils # Man Lymphocytes # (Manual) Monocytes # (Manual) Eosinophils # (Manual) Basophils # (Manual) PT INR Fibrinogen dRVVT Confirm Interp Factor V Activity POC ABG pH POC ABG pCO2 POC ABG pO2 ABG pO2 ABG HCO3 ABG Base Excess ABG Hemoglobin Oxyhemoglobin Sodium Potassium Chloride Carbon Dioxide BUN Creatinine Glucose POC Glucose 106 H 127 H 122 H Lactic Acid Calcium Ionized Calcium Phosphorus Magnesium Direct Bilirubin AST ALT Alkaline Phosphatase Lactate Dehydrogenase Troponin T C-Reactive Protein Total Protein Albumin Prealbumin Triglycerides Cholesterol LDL Cholesterol Direct HDL Cholesterol 25-OH Vitamin D Total PTH Intact Urine pH Urine WBC (Auto) Urine Creatinine Urine Total Protein Fluid Total Protein Vancomycin Trough Rheumatoid Factor Complement C4 Miscellaneous Test Crossmatch 02/17/17 02/17/17 02/17/17 06:00 12:17 17:57 WBC RBC Hgb Hct MCV MCH MCHC RDW Plt Count Lymph % (Auto) [place] % (Auto) Lymph # [place] # Baso # Seg Neutrophils % Seg Neuts % (Manual) Lymphocytes % (Manual) Monocytes % (Manual) Eosinophils % (Manual) Basophils % (Manual) Nucleated RBC % Seg Neutrophils # Seg Neutrophils # Man Lymphocytes # (Manual) Monocytes # (Manual) Eosinophils # (Manual) Basophils # (Manual) PT INR Fibrinogen dRVVT Confirm Interp Factor V Activity POC ABG pH POC ABG pCO2 POC ABG pO2 ABG pO2 ABG HCO3 ABG Base Excess ABG Hemoglobin Oxyhemoglobin Sodium Potassium Chloride Carbon Dioxide BUN 94 H Creatinine 2.3 H Glucose 106 H POC Glucose 173 H 140 H Lactic Acid Calcium Ionized Calcium Phosphorus Magnesium Direct Bilirubin AST ALT Alkaline Phosphatase Lactate Dehydrogenase Troponin T C-Reactive Protein Total Protein Albumin Prealbumin Triglycerides Cholesterol LDL Cholesterol Direct HDL Cholesterol 25-OH Vitamin D Total PTH Intact Urine pH Urine WBC (Auto) Urine Creatinine Urine Total Protein Fluid Total Protein Vancomycin Trough Rheumatoid Factor Complement C4 Miscellaneous Test Crossmatch 02/18/17 02/18/17 02/18/17 00:20 05:30 06:14 WBC RBC Hgb Hct MCV MCH MCHC RDW Plt Count Lymph % (Auto) [place] % (Auto) Lymph # [place] # Baso # Seg Neutrophils % Seg Neuts % (Manual) Lymphocytes % (Manual) Monocytes % (Manual) Eosinophils % (Manual) Basophils % (Manual) Nucleated RBC % Seg Neutrophils # Seg Neutrophils # Man Lymphocytes # (Manual) Monocytes # (Manual) Eosinophils # (Manual) Basophils # (Manual) PT INR Fibrinogen dRVVT Confirm Interp Factor V Activity POC ABG pH POC ABG pCO2 POC ABG pO2 ABG pO2 ABG HCO3 ABG Base Excess ABG Hemoglobin Oxyhemoglobin Sodium 136 L Potassium Chloride 97.5 L Carbon Dioxide BUN 73 H Creatinine 1.9 H Glucose POC Glucose 132 H 106 H Lactic Acid Calcium Ionized Calcium Phosphorus Magnesium Direct Bilirubin AST ALT Alkaline Phosphatase Lactate Dehydrogenase Troponin T C-Reactive Protein Total Protein Albumin Prealbumin Triglycerides Cholesterol LDL Cholesterol Direct HDL Cholesterol 25-OH Vitamin D Total PTH Intact Urine pH Urine WBC (Auto) Urine Creatinine Urine Total Protein Fluid Total Protein Vancomycin Trough Rheumatoid Factor Complement C4 Miscellaneous Test Crossmatch 02/18/17 02/18/17 02/18/17 09:51 11:32 17:59 WBC 13.1 H RBC 2.77 L Hgb 7.6 L Hct 23.9 L MCV MCH MCHC RDW 19.0 H Plt Count Lymph % (Auto) [place] % (Auto) 11.1 H Lymph # [place] # 1.5 H Baso # Seg Neutrophils % Seg Neuts % (Manual) Lymphocytes % (Manual) Monocytes % (Manual) Eosinophils % (Manual) Basophils % (Manual) Nucleated RBC % Seg Neutrophils # 9.1 H Seg Neutrophils # Man Lymphocytes # (Manual) Monocytes # (Manual) Eosinophils # (Manual) Basophils # (Manual) PT INR Fibrinogen dRVVT Confirm Interp Factor V Activity POC ABG pH POC ABG pCO2 POC ABG pO2 ABG pO2 ABG HCO3 ABG Base Excess ABG Hemoglobin Oxyhemoglobin Sodium Potassium Chloride Carbon Dioxide BUN Creatinine Glucose POC Glucose 123 H 119 H Lactic Acid Calcium Ionized Calcium Phosphorus Magnesium Direct Bilirubin AST ALT Alkaline Phosphatase Lactate Dehydrogenase Troponin T C-Reactive Protein Total Protein Albumin Prealbumin Triglycerides Cholesterol LDL Cholesterol Direct HDL Cholesterol 25-OH Vitamin D Total PTH Intact Urine pH Urine WBC (Auto) Urine Creatinine Urine Total Protein Fluid Total Protein Vancomycin Trough Rheumatoid Factor Complement C4 Miscellaneous Test Crossmatch 02/18/17 02/19/17 02/19/17 23:47 05:36 09:45 WBC RBC Hgb Hct MCV MCH 27 L MCHC RDW 19.2 H Plt Count Lymph % (Auto) [place] % (Auto) Lymph # [place] # Baso # Seg Neutrophils % Seg Neuts % (Manual) Lymphocytes % (Manual) Monocytes % (Manual) Eosinophils % (Manual) Basophils % (Manual) Nucleated RBC % Seg Neutrophils # Seg Neutrophils # Man Lymphocytes # (Manual) Monocytes # (Manual) Eosinophils # (Manual) Basophils # (Manual) PT INR Fibrinogen dRVVT Confirm Interp Factor V Activity POC ABG pH POC ABG pCO2 POC ABG pO2 ABG pO2 ABG HCO3 ABG Base Excess ABG Hemoglobin Oxyhemoglobin Sodium Potassium Chloride Carbon Dioxide BUN Creatinine Glucose POC Glucose 110 H 121 H Lactic Acid Calcium Ionized Calcium Phosphorus Magnesium Direct Bilirubin AST ALT Alkaline Phosphatase Lactate Dehydrogenase Troponin T C-Reactive Protein Total Protein Albumin Prealbumin Triglycerides Cholesterol LDL Cholesterol Direct HDL Cholesterol 25-OH Vitamin D Total PTH Intact Urine pH Urine WBC (Auto) Urine Creatinine Urine Total Protein Fluid Total Protein Vancomycin Trough Rheumatoid Factor Complement C4 Miscellaneous Test Crossmatch 02/19/17 09:45 WBC RBC Hgb Hct MCV MCH MCHC RDW Plt Count Lymph % (Auto) [place] % (Auto) Lymph # [place] # Baso # Seg Neutrophils % Seg Neuts % (Manual) Lymphocytes % (Manual) Monocytes % (Manual) Eosinophils % (Manual) Basophils % (Manual) Nucleated RBC % Seg Neutrophils # Seg Neutrophils # Man Lymphocytes # (Manual) Monocytes # (Manual) Eosinophils # (Manual) Basophils # (Manual) PT INR Fibrinogen dRVVT Confirm Interp Factor V Activity POC ABG pH POC ABG pCO2 POC ABG pO2 ABG pO2 ABG HCO3 ABG Base Excess ABG Hemoglobin Oxyhemoglobin Sodium Potassium Chloride Carbon Dioxide 20 L BUN 110 H Creatinine 2.6 H Glucose 106 H POC Glucose Lactic Acid Calcium Ionized Calcium Phosphorus 4.70 H D Magnesium Direct Bilirubin AST ALT Alkaline Phosphatase Lactate Dehydrogenase Troponin T C-Reactive Protein Total Protein Albumin Prealbumin Triglycerides Cholesterol LDL Cholesterol Direct HDL Cholesterol 25-OH Vitamin D Total PTH Intact Urine pH Urine WBC (Auto) Urine Creatinine Urine Total Protein Fluid Total Protein Vancomycin Trough Rheumatoid Factor Complement C4 Miscellaneous Test Crossmatch Allied health notes reviewed: RT (Has been on PS 15/, no desaturations today)
[2017-02-19] MEDS ORDERED: TPN ADULT IV SCH (20:00)
[2017-02-20] MEDS: HumuLIN R SUB-Q SCH ×4 (00:47→17:51)
[2017-02-20] MEDS: TYLENOL FEEDTUBE PRN (05:35)
[2017-02-20] MEDS: FLAGYL 500 MG/100 ML 500 MG/100 ML BAG IV SCH ×3 (05:35→22:28)
[2017-02-20] MEDS: REGLAN IV SCH ×3 (05:36→22:29)
[2017-02-20 07:00] LABS: Calcium 9.3 mg/dL (8.4-10.2)
[2017-02-20] MEDS ORDERED: NACL 0.9% 100 ML IV PRN (08:35)
[2017-02-20] MEDS: DUONEB *Not for PRN Use IH SCH ×3 (08:55→20:06)
[2017-02-20] MEDS: MAG-OX PO SCH (11:18)
[2017-02-20] MEDS: PROTONIX FEEDTUBE SCH (11:18)
[2017-02-20] MEDS: ROBINUL PO SCH ×2 (11:19→22:35)
[2017-02-20] MEDS: HEPARIN SUB-Q SCH ×2 (11:19→22:28)
--- NOTE | 2017-02-20 11:22 | Progress Note ---
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 UF as tolerated. Patient's serum creatinine is noted to be low - due to wasting of muscle mass. Needs to be maintained on dialysis at this time. * hypercalcemia work up - likely due to immobilization * Adjust Ca bath with dialysis * increase hd time today * Transfuse pRBC per primary team. Epogen TIW prn * Vent management per pulm/CCM * Pressors prn for MAP>65 * Dose medications for renal function Subjective Date of service: 02/20/17 Principal diagnosis: Acute resp failure on MVS; S/P Acute CVA; Acute Encephalopathy; JUANITA Interval history: new events from last pm noted Objective - Exam Narrative Exam: Gen. appearance: Patient lying in bed, no apparent distress, 4. restraints HEENT: Normocephalic, atraumatic, pupils equally round and reactive to light, extraocular movement intact, and no sclericterus,. No JVD or thyromegaly or nodule,neck supple, no carotid bruit ,mucous membranes moist, unable to examine oral cavity Heart: S1, S2, regular rate and rhythm Lungs: Clear to auscultation bilaterally, breathing comfortable Abdomen: Positive bowel sounds, nontender, nondistended, no organomegaly Extremity: No edema, cyanosis, clubbing Skin: No rash, nodules, warm, dry Neuro: Difficult to assess, facial droop, moves all 4 extremities - Vital Signs Vital signs: Vital Signs - 12hr 02/19/17 02/19/17 02/19/17 23:27 23:30 23:45 Temperature Pulse Rate 105 H 105 H 105 H Pulse Rate [ Anterior Bilateral Throughout] Pulse Rate [ Apical] Pulse Rate [ From Monitor] Pulse Rate [ Left Dorsalis Pedis] Pulse Rate [ Left Radial] Pulse Rate [ Right Dorsalis Pedis] Pulse Rate [ Right Radial] Respiratory 25 H 26 H 24 Rate Respiratory Rate [Anterior Bilateral Throughout] Blood Pressure 130/74 130/74 130/74 O2 Sat by Pulse 95 95 96 Oximetry O2 Sat by Pulse Oximetry [ Anterior Bilateral Throughout] O2 Sat by Pulse Oximetry [ Assessment] 02/20/17 02/20/17 02/20/17 00:00 00:15 00:31 Temperature 98.9 F Pulse Rate 107 H 107 H 106 H Pulse Rate [ Anterior Bilateral Throughout] Pulse Rate [ 100 H Apical] Pulse Rate [ 100 H From Monitor] Pulse Rate [ 100 H Left Dorsalis Pedis] Pulse Rate [ 100 H Left Radial] Pulse Rate [ 100 H Right Dorsalis Pedis] Pulse Rate [ 100 H Right Radial] Respiratory 26 H 24 24 Rate Respiratory Rate [Anterior Bilateral Throughout] Blood Pressure 106/73 106/73 106/73 O2 Sat by Pulse 96 97 96 Oximetry O2 Sat by Pulse Oximetry [ Anterior Bilateral Throughout] O2 Sat by Pulse Oximetry [ Assessment] 02/20/17 02/20/17 02/20/17 00:45 00:48 01:00 Temperature 100.9 F H Pulse Rate 108 H 106 H Pulse Rate [ Anterior Bilateral Throughout] Pulse Rate [ Apical] Pulse Rate [ From Monitor] Pulse Rate [ Left Dorsalis Pedis] Pulse Rate [ Left Radial] Pulse Rate [ Right Dorsalis Pedis] Pulse Rate [ Right Radial] Respiratory 24 24 Rate Respiratory Rate [Anterior Bilateral Throughout] Blood Pressure 106/73 107/55 O2 Sat by Pulse 97 96 Oximetry O2 Sat by Pulse Oximetry [ Anterior Bilateral Throughout] O2 Sat by Pulse Oximetry [ Assessment] 02/20/17 02/20/17 02/20/17 01:15 01:31 01:45 Temperature Pulse Rate 111 H 110 H 109 H Pulse Rate [ Anterior Bilateral Throughout] Pulse Rate [ Apical] Pulse Rate [ From Monitor] Pulse Rate [ Left Dorsalis Pedis] Pulse Rate [ Left Radial] Pulse Rate [ Right Dorsalis Pedis] Pulse Rate [ Right Radial] Respiratory 25 H 23 24 Rate Respiratory Rate [Anterior Bilateral Throughout] Blood Pressure 107/55 107/55 107/55 O2 Sat by Pulse 97 96 96 Oximetry O2 Sat by Pulse Oximetry [ Anterior Bilateral Throughout] O2 Sat by Pulse Oximetry [ Assessment] 02/20/17 02/20/17 02/20/17 02:00 02:15 02:31 Temperature Pulse Rate 111 H 113 H 115 H Pulse Rate [ Anterior Bilateral Throughout] Pulse Rate [ Apical] Pulse Rate [ From Monitor] Pulse Rate [ Left Dorsalis Pedis] Pulse Rate [ Left Radial] Pulse Rate [ Right Dorsalis Pedis] Pulse Rate [ Right Radial] Respiratory 24 27 H 23 Rate Respiratory Rate [Anterior Bilateral Throughout] Blood Pressure 107/55 114/58 114/58 O2 Sat by Pulse 96 95 96 Oximetry O2 Sat by Pulse Oximetry [ Anterior Bilateral Throughout] O2 Sat by Pulse Oximetry [ Assessment] 02/20/17 02/20/17 02/20/17 02:45 03:00 03:15 Temperature Pulse Rate 115 H 117 H 121 H Pulse Rate [ Anterior Bilateral Throughout] Pulse Rate [ Apical] Pulse Rate [ From Monitor] Pulse Rate [ Left Dorsalis Pedis] Pulse Rate [ Left Radial] Pulse Rate [ Right Dorsalis Pedis] Pulse Rate [ Right Radial] Respiratory 24 29 H 38 H Rate Respiratory Rate [Anterior Bilateral Throughout] Blood Pressure 114/58 104/53 104/53 O2 Sat by Pulse 95 94 95 Oximetry O2 Sat by Pulse Oximetry [ Anterior Bilateral Throughout] O2 Sat by Pulse Oximetry [ Assessment] 02/20/17 02/20/17 02/20/17 03:31 03:45 04:00 Temperature 102.6 F H Pulse Rate 125 H 126 H 123 H Pulse Rate [ Anterior Bilateral Throughout] Pulse Rate [ Apical] Pulse Rate [ From Monitor] Pulse Rate [ Left Dorsalis Pedis] Pulse Rate [ Left Radial] Pulse Rate [ Right Dorsalis Pedis] Pulse Rate [ Right Radial] Respiratory 30 H 27 H 25 H Rate Respiratory Rate [Anterior Bilateral Throughout] Blood Pressure 104/53 104/53 116/67 O2 Sat by Pulse 95 96 94 Oximetry O2 Sat by Pulse Oximetry [ Anterior Bilateral Throughout] O2 Sat by Pulse Oximetry [ Assessment] 02/20/17 02/20/17 02/20/17 04:15 04:29 04:30 Temperature Pulse Rate 126 H 128 H Pulse Rate [ Anterior Bilateral Throughout] Pulse Rate [ Apical] Pulse Rate [ From Monitor] Pulse Rate [ Left Dorsalis Pedis] Pulse Rate [ Left Radial] Pulse Rate [ Right Dorsalis Pedis] Pulse Rate [ Right Radial] Respiratory 26 H Rate Respiratory Rate [Anterior Bilateral Throughout] Blood Pressure 116/67 116/67 O2 Sat by Pulse 96 95 Oximetry O2 Sat by Pulse Oximetry [ Anterior Bilateral Throughout] O2 Sat by Pulse 95 Oximetry [ Assessment] 02/20/17 02/20/17 02/20/17 04:31 04:45 05:00 Temperature Pulse Rate 127 H 126 H 128 H Pulse Rate [ Anterior Bilateral Throughout] Pulse Rate [ Apical] Pulse Rate [ From Monitor] Pulse Rate [ Left Dorsalis Pedis] Pulse Rate [ Left Radial] Pulse Rate [ Right Dorsalis Pedis] Pulse Rate [ Right Radial] Respiratory 30 H 28 H 29 H Rate Respiratory Rate [Anterior Bilateral Throughout] Blood Pressure 116/67 116/67 119/65 O2 Sat by Pulse 95 95 96 Oximetry O2 Sat by Pulse Oximetry [ Anterior Bilateral Throughout] O2 Sat by Pulse Oximetry [ Assessment] 02/20/17 02/20/17 02/20/17 05:15 05:31 05:45 Temperature Pulse Rate 127 H 126 H 129 H Pulse Rate [ Anterior Bilateral Throughout] Pulse Rate [ Apical] Pulse Rate [ From Monitor] Pulse Rate [ Left Dorsalis Pedis] Pulse Rate [ Left Radial] Pulse Rate [ Right Dorsalis Pedis] Pulse Rate [ Right Radial] Respiratory 29 H 28 H 31 H Rate Respiratory Rate [Anterior Bilateral Throughout] Blood Pressure 119/65 119/65 119/65 O2 Sat by Pulse 95 96 97 Oximetry O2 Sat by Pulse Oximetry [ Anterior Bilateral Throughout] O2 Sat by Pulse Oximetry [ Assessment] 02/20/17 02/20/17 02/20/17 06:00 06:15 06:31 Temperature Pulse Rate 124 H 121 H 120 H Pulse Rate [ Anterior Bilateral Throughout] Pulse Rate [ Apical] Pulse Rate [ From Monitor] Pulse Rate [ Left Dorsalis Pedis] Pulse Rate [ Left Radial] Pulse Rate [ Right Dorsalis Pedis] Pulse Rate [ Right Radial] Respiratory 26 H 25 H 27 H Rate Respiratory Rate [Anterior Bilateral Throughout] Blood Pressure 98/42 98/42 98/42 O2 Sat by Pulse 96 97 91 Oximetry O2 Sat by Pulse Oximetry [ Anterior Bilateral Throughout] O2 Sat by Pulse Oximetry [ Assessment] 02/20/17 02/20/17 02/20/17 06:45 07:00 07:15 Temperature Pulse Rate 120 H 116 H 114 H Pulse Rate [ Anterior Bilateral Throughout] Pulse Rate [ Apical] Pulse Rate [ From Monitor] Pulse Rate [ Left Dorsalis Pedis] Pulse Rate [ Left Radial] Pulse Rate [ Right Dorsalis Pedis] Pulse Rate [ Right Radial] Respiratory 33 H 28 H 24 Rate Respiratory Rate [Anterior Bilateral Throughout] Blood Pressure 98/42 97/55 97/55 O2 Sat by Pulse 91 91 95 Oximetry O2 Sat by Pulse Oximetry [ Anterior Bilateral Throughout] O2 Sat by Pulse Oximetry [ Assessment] 02/20/17 02/20/17 02/20/17 07:31 07:45 07:54 Temperature 100.4 F H Pulse Rate 110 H 109 H Pulse Rate [ Anterior Bilateral Throughout] Pulse Rate [ Apical] Pulse Rate [ From Monitor] Pulse Rate [ Left Dorsalis Pedis] Pulse Rate [ Left Radial] Pulse Rate [ Right Dorsalis Pedis] Pulse Rate [ Right Radial] Respiratory 24 27 H Rate Respiratory Rate [Anterior Bilateral Throughout] Blood Pressure 97/55 97/55 O2 Sat by Pulse 95 95 Oximetry O2 Sat by Pulse Oximetry [ Anterior Bilateral Throughout] O2 Sat by Pulse Oximetry [ Assessment] 02/20/17 02/20/17 02/20/17 08:00 08:15 08:31 Temperature Pulse Rate 110 H 109 H 106 H Pulse Rate [ Anterior Bilateral Throughout] Pulse Rate [ Apical] Pulse Rate [ From Monitor] Pulse Rate [ Left Dorsalis Pedis] Pulse Rate [ Left Radial] Pulse Rate [ Right Dorsalis Pedis] Pulse Rate [ Right Radial] Respiratory 22 22 27 H Rate Respiratory Rate [Anterior Bilateral Throughout] Blood Pressure 102/57 102/57 102/57 O2 Sat by Pulse 95 98 98 Oximetry O2 Sat by Pulse Oximetry [ Anterior Bilateral Throughout] O2 Sat by Pulse Oximetry [ Assessment] 02/20/17 02/20/17 02/20/17 08:45 08:54 09:00 Temperature Pulse Rate 104 H 105 H 111 H Pulse Rate [ 105 H Anterior Bilateral Throughout] Pulse Rate [ Apical] Pulse Rate [ From Monitor] Pulse Rate [ Left Dorsalis Pedis] Pulse Rate [ Left Radial] Pulse Rate [ Right Dorsalis Pedis] Pulse Rate [ Right Radial] Respiratory 28 H 21 Rate Respiratory 31 H Rate [Anterior Bilateral Throughout] Blood Pressure 102/57 102/57 117/84 O2 Sat by Pulse 85 91 99 Oximetry O2 Sat by Pulse Oximetry [ Anterior Bilateral Throughout] O2 Sat by Pulse Oximetry [ Assessment] 02/20/17 02/20/17 02/20/17 09:14 09:15 09:31 Temperature Pulse Rate 108 H 111 H 107 H Pulse Rate [ 112 H Anterior Bilateral Throughout] Pulse Rate [ Apical] Pulse Rate [ From Monitor] Pulse Rate [ Left Dorsalis Pedis] Pulse Rate [ Left Radial] Pulse Rate [ Right Dorsalis Pedis] Pulse Rate [ Right Radial] Respiratory 25 H 29 H 41 H Rate Respiratory 17 Rate [Anterior Bilateral Throughout] Blood Pressure 117/84 117/84 117/84 O2 Sat by Pulse 100 100 99 Oximetry O2 Sat by Pulse Oximetry [ Anterior Bilateral Throughout] O2 Sat by Pulse 99 Oximetry [ Assessment] 02/20/17 02/20/17 02/20/17 09:45 10:00 10:15 Temperature Pulse Rate 107 H 105 H 102 H Pulse Rate [ Anterior Bilateral Throughout] Pulse Rate [ Apical] Pulse Rate [ From Monitor] Pulse Rate [ Left Dorsalis Pedis] Pulse Rate [ Left Radial] Pulse Rate [ Right Dorsalis Pedis] Pulse Rate [ Right Radial] Respiratory 38 H 38 H 34 H Rate Respiratory Rate [Anterior Bilateral Throughout] Blood Pressure 117/84 106/71 106/71 O2 Sat by Pulse 99 97 99 Oximetry O2 Sat by Pulse Oximetry [ Anterior Bilateral Throughout] O2 Sat by Pulse Oximetry [ Assessment] 02/20/17 02/20/17 02/20/17 10:30 10:31 10:35 Temperature 100.4 F H Pulse Rate 101 H 101 H 104 H Pulse Rate [ Anterior Bilateral Throughout] Pulse Rate [ Apical] Pulse Rate [ From Monitor] Pulse Rate [ Left Dorsalis Pedis] Pulse Rate [ Left Radial] Pulse Rate [ Right Dorsalis Pedis] Pulse Rate [ Right Radial] Respiratory 38 H 38 H Rate Respiratory Rate [Anterior Bilateral Throughout] Blood Pressure 106/71 106/71 132/82 O2 Sat by Pulse 99 Oximetry O2 Sat by Pulse 100 Oximetry [ Anterior Bilateral Throughout] O2 Sat by Pulse Oximetry [ Assessment] 02/20/17 02/20/17 10:45 11:13 Temperature Pulse Rate 105 H 111 H Pulse Rate [ Anterior Bilateral Throughout] Pulse Rate [ Apical] Pulse Rate [ From Monitor] Pulse Rate [ Left Dorsalis Pedis] Pulse Rate [ Left Radial] Pulse Rate [ Right Dorsalis Pedis] Pulse Rate [ Right Radial] Respiratory 35 H 36 H Rate Respiratory Rate [Anterior Bilateral Throughout] Blood Pressure 124/76 102/72 O2 Sat by Pulse 98 99 Oximetry O2 Sat by Pulse Oximetry [ Anterior Bilateral Throughout] O2 Sat by Pulse Oximetry [ Assessment] - Lab 02/19/17 09:45 02/20/17 06:15 Most recent lab results ABG pH 7.450 pH Units (7.350-7.450) 12/05/16 Unknown ABG pCO2 29.6 mm Hg 12/05/16 Unknown ABG pO2 75.2 mm Hg (80.0-90.0) L 12/05/16 Unknown ABG HCO3 20.1 mmol/L (20.0-26.0) 12/05/16 Unknown ABG O2 Saturation 96.8 % (95.0-99.0) 12/05/16 Unknown Calcium 9.3 mg/dL (8.4-10.2) 02/20/17 06:15 Phosphorus 5.60 mg/dL (2.5-4.5) H 02/20/17 06:15 Magnesium 1.90 mg/dL (1.7-2.3) 02/19/17 09:45 Urine Creatinine 19.7 mg/dL (0.1-20.0) 11/12/16 10:18 Urine Sodium 36 mEq/L 09/16/16 19:19 Urine Total Protein 16 mg/dL (5-11.8) H 09/16/16 19:19
--- NOTE | 2017-02-20 13:35 | Progress Note ---
Assessment and Plan Acute Hypoxemic Respiratory Failure (now with exacerbation and back on MVS) Hypertension (unable to receive p.o. meds) Atrial Fibrillation with RVR s/p tracheostomy Acute encephalopathy s/p CVA Oropharyngeal dysphagia Enterococcal bacteremia sepsis syndrome Sacral Decubitus Ulcer (s/p surgical debridement) Anemia Obesity JUANITA now on hemodialysis Enteric Fistula - scheduled IV metoprolol with hold parameters - stop Amiodarone drip thereafter - continue to hold tube feeds due to continued intolerance; continue reglan at 10mg IV q8h - continue NGT to LIS - IR earlier consulted for G-J tube (not a good candidate for G-J Tube per IR) - remains on amiodarone drip for persistent tachycardia (improving) - Pleural fluid cultures negative - unfortunately not a good candidate for a VATS procedure - prn CXR's - appreciate surgery input - continue fentanyl patch for pain issues especially s/p debridement - continue wound care per WCT and RN's (she is s/p surgical debridement) - continue anti-infectives per ID recs (az now) - prn CRP & lactate levels if clinically indicated (Follow WBC also) - keep on with daily PSV trials and / or T-piece as tolerated - continue TPN administration - continue robinul & scopolamine for secretion control - continue to wean FiO2 for sats > 94% - continue bronchodilators and pulmonary toilet - VAP bundle addressed - continue to follow electrolytes and correct as necessary - continue GI & VTE prophylaxis - Continue flu & pneumovax per protocol - ethics consult placed and pending .....she remains critically ill on life sustaining interventions including MVS and at risk for further deterioration including ....30' CCT ....care plan discussed at length during team rounds ...director long term care prognosis remains guarded and this has intermittently been conveyed to family Subjective Date of service: 02/20/17 Principal diagnosis: Acute resp failure on MVS; S/P Acute CVA; Acute Encephalopathy; JUANITA Interval history: Patient is seen today for: Acute resp failure on MVS; S/P Acute CVA; Acute Encephalopathy; JUANITA Seen and examined at bedside; 24hour events reviewed; nursing and respiratory care staff consulted; no adverse overnight events reported to me; remains on MVS ; HD/UF ongoing; On graded PSV trial with Psupp down to 14/5; AMS is persistent ; NGT remains to LIS and no vomiting reported today Objective Vital Signs - 12hr 02/20/17 02/20/17 02/20/17 01:45 02:00 02:15 Temperature Pulse Rate 109 H 111 H 113 H Pulse Rate [ Anterior Bilateral Throughout] Pulse Rate [ From Monitor] Respiratory 24 24 27 H Rate Respiratory Rate [Anterior Bilateral Throughout] Respiratory Rate [ Generalized] Blood Pressure 107/55 107/55 114/58 O2 Sat by Pulse 96 96 95 Oximetry O2 Sat by Pulse Oximetry [ Anterior Bilateral Throughout] O2 Sat by Pulse Oximetry [ Assessment] 02/20/17 02/20/17 02/20/17 02:31 02:45 03:00 Temperature Pulse Rate 115 H 115 H 117 H Pulse Rate [ Anterior Bilateral Throughout] Pulse Rate [ From Monitor] Respiratory 23 24 29 H Rate Respiratory Rate [Anterior Bilateral Throughout] Respiratory Rate [ Generalized] Blood Pressure 114/58 114/58 104/53 O2 Sat by Pulse 96 95 94 Oximetry O2 Sat by Pulse Oximetry [ Anterior Bilateral Throughout] O2 Sat by Pulse Oximetry [ Assessment] 02/20/17 02/20/17 02/20/17 03:15 03:31 03:45 Temperature Pulse Rate 121 H 125 H 126 H Pulse Rate [ Anterior Bilateral Throughout] Pulse Rate [ From Monitor] Respiratory 38 H 30 H 27 H Rate Respiratory Rate [Anterior Bilateral Throughout] Respiratory Rate [ Generalized] Blood Pressure 104/53 104/53 104/53 O2 Sat by Pulse 95 95 96 Oximetry O2 Sat by Pulse Oximetry [ Anterior Bilateral Throughout] O2 Sat by Pulse Oximetry [ Assessment] 02/20/17 02/20/17 02/20/17 04:00 04:15 04:29 Temperature 102.6 F H Pulse Rate 123 H 126 H 128 H Pulse Rate [ Anterior Bilateral Throughout] Pulse Rate [ From Monitor] Respiratory 25 H 26 H Rate Respiratory Rate [Anterior Bilateral Throughout] Respiratory Rate [ Generalized] Blood Pressure 116/67 116/67 116/67 O2 Sat by Pulse 94 96 95 Oximetry O2 Sat by Pulse Oximetry [ Anterior Bilateral Throughout] O2 Sat by Pulse Oximetry [ Assessment] 02/20/17 02/20/17 02/20/17 04:30 04:31 04:45 Temperature Pulse Rate 127 H 126 H Pulse Rate [ Anterior Bilateral Throughout] Pulse Rate [ From Monitor] Respiratory 30 H 28 H Rate Respiratory Rate [Anterior Bilateral Throughout] Respiratory Rate [ Generalized] Blood Pressure 116/67 116/67 O2 Sat by Pulse 95 95 Oximetry O2 Sat by Pulse Oximetry [ Anterior Bilateral Throughout] O2 Sat by Pulse 95 Oximetry [ Assessment] 02/20/17 02/20/17 02/20/17 05:00 05:15 05:31 Temperature Pulse Rate 128 H 127 H 126 H Pulse Rate [ Anterior Bilateral Throughout] Pulse Rate [ From Monitor] Respiratory 29 H 29 H 28 H Rate Respiratory Rate [Anterior Bilateral Throughout] Respiratory Rate [ Generalized] Blood Pressure 119/65 119/65 119/65 O2 Sat by Pulse 96 95 96 Oximetry O2 Sat by Pulse Oximetry [ Anterior Bilateral Throughout] O2 Sat by Pulse Oximetry [ Assessment] 02/20/17 02/20/17 02/20/17 05:45 06:00 06:15 Temperature Pulse Rate 129 H 124 H 121 H Pulse Rate [ Anterior Bilateral Throughout] Pulse Rate [ From Monitor] Respiratory 31 H 26 H 25 H Rate Respiratory Rate [Anterior Bilateral Throughout] Respiratory Rate [ Generalized] Blood Pressure 119/65 98/42 98/42 O2 Sat by Pulse 97 96 97 Oximetry O2 Sat by Pulse Oximetry [ Anterior Bilateral Throughout] O2 Sat by Pulse Oximetry [ Assessment] 02/20/17 02/20/17 02/20/17 06:31 06:45 07:00 Temperature Pulse Rate 120 H 120 H 116 H Pulse Rate [ Anterior Bilateral Throughout] Pulse Rate [ From Monitor] Respiratory 27 H 33 H 28 H Rate Respiratory Rate [Anterior Bilateral Throughout] Respiratory Rate [ Generalized] Blood Pressure 98/42 98/42 97/55 O2 Sat by Pulse 91 91 91 Oximetry O2 Sat by Pulse Oximetry [ Anterior Bilateral Throughout] O2 Sat by Pulse Oximetry [ Assessment] 02/20/17 02/20/17 02/20/17 07:15 07:31 07:45 Temperature Pulse Rate 114 H 110 H 109 H Pulse Rate [ Anterior Bilateral Throughout] Pulse Rate [ From Monitor] Respiratory 24 24 27 H Rate Respiratory Rate [Anterior Bilateral Throughout] Respiratory Rate [ Generalized] Blood Pressure 97/55 97/55 97/55 O2 Sat by Pulse 95 95 95 Oximetry O2 Sat by Pulse Oximetry [ Anterior Bilateral Throughout] O2 Sat by Pulse Oximetry [ Assessment] 02/20/17 02/20/17 02/20/17 07:54 08:00 08:15 Temperature 100.4 F H Pulse Rate 110 H 109 H Pulse Rate [ Anterior Bilateral Throughout] Pulse Rate [ 102 H From Monitor] Respiratory 30 H 22 Rate Respiratory Rate [Anterior Bilateral Throughout] Respiratory Rate [ Generalized] Blood Pressure 102/57 102/57 O2 Sat by Pulse 99 98 Oximetry O2 Sat by Pulse Oximetry [ Anterior Bilateral Throughout] O2 Sat by Pulse Oximetry [ Assessment] 02/20/17 02/20/17 02/20/17 08:31 08:45 08:54 Temperature Pulse Rate 106 H 104 H 105 H Pulse Rate [ 105 H Anterior Bilateral Throughout] Pulse Rate [ From Monitor] Respiratory 27 H 28 H Rate Respiratory 31 H Rate [Anterior Bilateral Throughout] Respiratory Rate [ Generalized] Blood Pressure 102/57 102/57 102/57 O2 Sat by Pulse 98 85 91 Oximetry O2 Sat by Pulse Oximetry [ Anterior Bilateral Throughout] O2 Sat by Pulse Oximetry [ Assessment] 02/20/17 02/20/17 02/20/17 09:00 09:14 09:15 Temperature Pulse Rate 111 H 108 H 111 H Pulse Rate [ 112 H Anterior Bilateral Throughout] Pulse Rate [ From Monitor] Respiratory 21 25 H 29 H Rate Respiratory 17 Rate [Anterior Bilateral Throughout] Respiratory Rate [ Generalized] Blood Pressure 117/84 117/84 117/84 O2 Sat by Pulse 99 100 100 Oximetry O2 Sat by Pulse Oximetry [ Anterior Bilateral Throughout] O2 Sat by Pulse 99 Oximetry [ Assessment] 02/20/17 02/20/17 02/20/17 09:31 09:45 10:00 Temperature Pulse Rate 107 H 107 H 106 H Pulse Rate [ Anterior Bilateral Throughout] Pulse Rate [ From Monitor] Respiratory 41 H 38 H 38 H Rate Respiratory Rate [Anterior Bilateral Throughout] Respiratory 30 H Rate [ Generalized] Blood Pressure 117/84 117/84 106/71 O2 Sat by Pulse 99 99 97 Oximetry O2 Sat by Pulse Oximetry [ Anterior Bilateral Throughout] O2 Sat by Pulse Oximetry [ Assessment] 02/20/17 02/20/17 02/20/17 10:15 10:30 10:31 Temperature 100.4 F H Pulse Rate 102 H 101 H 101 H Pulse Rate [ Anterior Bilateral Throughout] Pulse Rate [ From Monitor] Respiratory 34 H 38 H 38 H Rate Respiratory Rate [Anterior Bilateral Throughout] Respiratory Rate [ Generalized] Blood Pressure 106/71 106/71 106/71 O2 Sat by Pulse 99 99 Oximetry O2 Sat by Pulse 100 Oximetry [ Anterior Bilateral Throughout] O2 Sat by Pulse Oximetry [ Assessment] 02/20/17 02/20/17 02/20/17 10:35 10:45 11:00 Temperature Pulse Rate 104 H 105 H 109 H Pulse Rate [ Anterior Bilateral Throughout] Pulse Rate [ From Monitor] Respiratory 35 H 34 H Rate Respiratory Rate [Anterior Bilateral Throughout] Respiratory Rate [ Generalized] Blood Pressure 132/82 124/76 102/72 O2 Sat by Pulse 98 96 Oximetry O2 Sat by Pulse Oximetry [ Anterior Bilateral Throughout] O2 Sat by Pulse Oximetry [ Assessment] 02/20/17 02/20/17 02/20/17 11:13 11:15 11:30 Temperature Pulse Rate 111 H 123 H 110 H Pulse Rate [ Anterior Bilateral Throughout] Pulse Rate [ From Monitor] Respiratory 36 H 38 H 26 H Rate Respiratory Rate [Anterior Bilateral Throughout] Respiratory Rate [ Generalized] Blood Pressure 102/72 101/69 97/65 O2 Sat by Pulse 99 97 100 Oximetry O2 Sat by Pulse Oximetry [ Anterior Bilateral Throughout] O2 Sat by Pulse Oximetry [ Assessment] 02/20/17 02/20/17 02/20/17 11:41 11:45 12:00 Temperature 98.6 F Pulse Rate 112 H 113 H Pulse Rate [ Anterior Bilateral Throughout] Pulse Rate [ 113 H From Monitor] Respiratory 26 H 33 H Rate Respiratory Rate [Anterior Bilateral Throughout] Respiratory Rate [ Generalized] Blood Pressure 105/71 104/71 O2 Sat by Pulse 99 100 Oximetry O2 Sat by Pulse Oximetry [ Anterior Bilateral Throughout] O2 Sat by Pulse Oximetry [ Assessment] 02/20/17 02/20/17 02/20/17 12:15 12:30 12:45 Temperature Pulse Rate 110 H 112 H 110 H Pulse Rate [ Anterior Bilateral Throughout] Pulse Rate [ From Monitor] Respiratory 28 H 46 H 39 H Rate Respiratory Rate [Anterior Bilateral Throughout] Respiratory Rate [ Generalized] Blood Pressure 111/77 112/84 90/64 O2 Sat by Pulse 100 100 97 Oximetry O2 Sat by Pulse Oximetry [ Anterior Bilateral Throughout] O2 Sat by Pulse Oximetry [ Assessment] 02/20/17 13:00 Temperature Pulse Rate 106 H Pulse Rate [ Anterior Bilateral Throughout] Pulse Rate [ From Monitor] Respiratory 12 Rate Respiratory Rate [Anterior Bilateral Throughout] Respiratory Rate [ Generalized] Blood Pressure 99/72 O2 Sat by Pulse 100 Oximetry O2 Sat by Pulse Oximetry [ Anterior Bilateral Throughout] O2 Sat by Pulse Oximetry [ Assessment] Constitutional: appears uncomfortable, other (not tracking) Eyes: non-icteric, other (tracheostomy tube in midline of neck) ENT: oropharynx moist, oropharyngeal exudate pre, other (midline tracheostomy tube) Neck: supple, no lymphadenopathy, no JVD, other (no thyromegaly) Effort: mildly labored Ascultation: Bilateral: diminished breath sounds, rhonchi (and referred upper airway sounds) Percussion: Bilateral: not dull Cardiovascular: regular rate and rhythm, other (no rubs / murmurs) Gastrointestinal: hypoactive bowel sounds, soft, non-tender, non-distended, other (RLQ & LUQ stomas with colostomy bags) Integumentary: decubitus ulcer (sacral; stage 4 s/p surgical debridement), other (no rash; no cellulitis; poor turgor) Extremities: no cyanosis, pulses normal, no ischemia or petechiae, edema (1+ bilaterally) Neurologic: pupils equal and round, unable to assess, other (encephalopathic) Psychiatric: other (unable to assess) CBC and BMP: 02/19/17 09:45 02/20/17 06:15 ABG, PT/INR, D-dimer: ABG POC ABG pH 7.436 (7.35-7.45) 01/20/17 12:17 ABG pH 7.450 pH Units (7.350-7.450) 12/05/16 Unknown POC ABG pCO2 35.3 (35-45) 01/20/17 12: ABG pCO2 29.6 mm Hg 12/05/16 Unknown POC ABG pO2 70 (80-105) L 01/20/17 12: ABG pO2 75.2 mm Hg (80.0-90.0) L 12/05/16 Unknown POC ABG HCO3 23.8 01/20/17 12:17 POC ABG Total CO2 25 01/20/17 12:17 POC ABG O2 Sat 94 01/20/17 12: ABG O2 Saturation 96.8 % (95.0-99.0) 12/05/16 Unknown PT/INR, D-dimer PT 15.4 Sec. (12.2-14.9) H 01/13/17 15:50 INR 1.16 (0.87-1.13) H 01/13/17 15:50 Abnormal lab findings: Abnormal Labs 09/03/16 09/03/16 09/03/16 00:03 00:10 00:10 WBC 13.9 H RBC 5.95 H Hgb Hct 44.0 H MCV 74 L MCH 22 L MCHC RDW 17.5 H Plt Count Lymph % (Auto) [place] % (Auto) Lymph # [place] # Baso # Seg Neutrophils % Seg Neuts % (Manual) Lymphocytes % (Manual) 54.0 H Monocytes % (Manual) Eosinophils % (Manual) Basophils % (Manual) Nucleated RBC % Seg Neutrophils # Seg Neutrophils # Man Lymphocytes # (Manual) 7.5 H Monocytes # (Manual) Eosinophils # (Manual) Basophils # (Manual) PT INR Fibrinogen dRVVT Confirm Interp Factor V Activity POC ABG pH POC ABG pCO2 POC ABG pO2 ABG pO2 ABG HCO3 ABG Base Excess ABG Hemoglobin Oxyhemoglobin Sodium Potassium 2.8 L* Chloride Carbon Dioxide 21 L BUN Creatinine 1.7 H Glucose 159 H POC Glucose 177 H Lactic Acid Calcium Ionized Calcium Phosphorus Magnesium Direct Bilirubin AST ALT Alkaline Phosphatase Lactate Dehydrogenase Troponin T C-Reactive Protein Total Protein Albumin Prealbumin Triglycerides Cholesterol LDL Cholesterol Direct HDL Cholesterol 25-OH Vitamin D Total PTH Intact Urine pH Urine WBC (Auto) Urine Creatinine Urine Total Protein Fluid Total Protein Vancomycin Trough Rheumatoid Factor Complement C4 Miscellaneous Test Crossmatch 09/03/16 09/03/16 09/03/16 12:12 15:07 16:20 WBC RBC Hgb Hct MCV MCH MCHC RDW Plt Count Lymph % (Auto) [place] % (Auto) Lymph # [place] # Baso # Seg Neutrophils % Seg Neuts % (Manual) Lymphocytes % (Manual) Monocytes % (Manual) Eosinophils % (Manual) Basophils % (Manual) Nucleated RBC % Seg Neutrophils # Seg Neutrophils # Man Lymphocytes # (Manual) Monocytes # (Manual) Eosinophils # (Manual) Basophils # (Manual) PT INR Fibrinogen dRVVT Confirm Interp Factor V Activity POC ABG pH 7.452 H POC ABG pCO2 POC ABG pO2 ABG pO2 ABG HCO3 ABG Base Excess ABG Hemoglobin Oxyhemoglobin Sodium Potassium Chloride Carbon Dioxide BUN Creatinine Glucose POC Glucose 178 H Lactic Acid Calcium Ionized Calcium Phosphorus 2.20 L Magnesium 1.60 L Direct Bilirubin AST ALT Alkaline Phosphatase Lactate Dehydrogenase Troponin T C-Reactive Protein Total Protein Albumin Prealbumin Triglycerides Cholesterol LDL Cholesterol Direct HDL Cholesterol 25-OH Vitamin D Total PTH Intact Urine pH Urine WBC (Auto) Urine Creatinine Urine Total Protein Fluid Total Protein Vancomycin Trough Rheumatoid Factor Complement C4 Miscellaneous Test Crossmatch 09/03/16 09/03/16 09/03/16 17:57 17:58 23:50 WBC RBC Hgb Hct MCV MCH MCHC RDW Plt Count Lymph % (Auto) [place] % (Auto) Lymph # [place] # Baso # Seg Neutrophils % Seg Neuts % (Manual) Lymphocytes % (Manual) Monocytes % (Manual) Eosinophils % (Manual) Basophils % (Manual) Nucleated RBC % Seg Neutrophils # Seg Neutrophils # Man Lymphocytes # (Manual) Monocytes # (Manual) Eosinophils # (Manual) Basophils # (Manual) PT INR Fibrinogen dRVVT Confirm Interp Factor V Activity POC ABG pH POC ABG pCO2 POC ABG pO2 ABG pO2 ABG HCO3 ABG Base Excess ABG Hemoglobin Oxyhemoglobin Sodium Potassium Chloride Carbon Dioxide BUN Creatinine Glucose POC Glucose 162 H 145 H Lactic Acid Calcium Ionized Calcium Phosphorus 2.30 L Magnesium Direct Bilirubin AST ALT Alkaline Phosphatase Lactate Dehydrogenase Troponin T C-Reactive Protein Total Protein Albumin Prealbumin Triglycerides Cholesterol LDL Cholesterol Direct HDL Cholesterol 25-OH Vitamin D Total PTH Intact Urine pH Urine WBC (Auto) Urine Creatinine Urine Total Protein Fluid Total Protein Vancomycin Trough Rheumatoid Factor Complement C4 Miscellaneous Test Crossmatch 09/04/16 09/04/16 09/04/16 03:31 03:31 05:42 WBC RBC Hgb 9.7 L D Hct MCV 72 L MCH 23 L MCHC RDW 17.5 H Plt Count Lymph % (Auto) 11.1 L [place] % (Auto) Lymph # [place] # Baso # Seg Neutrophils % 84.3 H Seg Neuts % (Manual) Lymphocytes % (Manual) Monocytes % (Manual) Eosinophils % (Manual) Basophils % (Manual) Nucleated RBC % Seg Neutrophils # 8.9 H Seg Neutrophils # Man Lymphocytes # (Manual) Monocytes # (Manual) Eosinophils # (Manual) Basophils # (Manual) PT INR Fibrinogen dRVVT Confirm Interp Factor V Activity POC ABG pH POC ABG pCO2 POC ABG pO2 ABG pO2 ABG HCO3 ABG Base Excess ABG Hemoglobin Oxyhemoglobin Sodium 135 L Potassium 2.9 L* Chloride 97.2 L Carbon Dioxide 19 L BUN Creatinine 1.7 H Glucose 170 H POC Glucose 152 H Lactic Acid Calcium Ionized Calcium Phosphorus Magnesium Direct Bilirubin AST ALT Alkaline Phosphatase Lactate Dehydrogenase Troponin T C-Reactive Protein Total Protein Albumin Prealbumin Triglycerides 160 H Cholesterol LDL Cholesterol Direct HDL Cholesterol 31 L 25-OH Vitamin D Total PTH Intact Urine pH Urine WBC (Auto) Urine Creatinine Urine Total Protein Fluid Total Protein Vancomycin Trough Rheumatoid Factor Complement C4 Miscellaneous Test Crossmatch 09/04/16 09/04/16 09/04/16 11:34 17:46 23:29 WBC RBC Hgb Hct MCV MCH MCHC RDW Plt Count Lymph % (Auto) [place] % (Auto) Lymph # [place] # Baso # Seg Neutrophils % Seg Neuts % (Manual) Lymphocytes % (Manual) Monocytes % (Manual) Eosinophils % (Manual) Basophils % (Manual) Nucleated RBC % Seg Neutrophils # Seg Neutrophils # Man Lymphocytes # (Manual) Monocytes # (Manual) Eosinophils # (Manual) Basophils # (Manual) PT INR Fibrinogen dRVVT Confirm Interp Factor V Activity POC ABG pH POC ABG pCO2 POC ABG pO2 ABG pO2 ABG HCO3 ABG Base Excess ABG Hemoglobin Oxyhemoglobin Sodium Potassium Chloride Carbon Dioxide BUN Creatinine Glucose POC Glucose 165 H 210 H 139 H Lactic Acid Calcium Ionized Calcium Phosphorus Magnesium Direct Bilirubin AST ALT Alkaline Phosphatase Lactate Dehydrogenase Troponin T C-Reactive Protein Total Protein Albumin Prealbumin Triglycerides Cholesterol LDL Cholesterol Direct HDL Cholesterol 25-OH Vitamin D Total PTH Intact Urine pH Urine WBC (Auto) Urine Creatinine Urine Total Protein Fluid Total Protein Vancomycin Trough Rheumatoid Factor Complement C4 Miscellaneous Test Crossmatch 09/05/16 09/05/16 09/05/16 04:05 04:05 05:38 WBC RBC Hgb Hct MCV 76 L D MCH 23 L MCHC RDW 17.8 H Plt Count Lymph % (Auto) [place] % (Auto) Lymph # [place] # Baso # Seg Neutrophils % Seg Neuts % (Manual) Lymphocytes % (Manual) Monocytes % (Manual) Eosinophils % (Manual) Basophils % (Manual) Nucleated RBC % Seg Neutrophils # Seg Neutrophils # Man Lymphocytes # (Manual) Monocytes # (Manual) Eosinophils # (Manual) Basophils # (Manual) PT INR Fibrinogen dRVVT Confirm Interp Factor V Activity POC ABG pH POC ABG pCO2 POC ABG pO2 ABG pO2 ABG HCO3 ABG Base Excess ABG Hemoglobin Oxyhemoglobin Sodium 134 L Potassium Chloride Carbon Dioxide 18 L BUN Creatinine 1.8 H Glucose 192 H POC Glucose 175 H Lactic Acid Calcium Ionized Calcium Phosphorus Magnesium Direct Bilirubin AST ALT Alkaline Phosphatase Lactate Dehydrogenase Troponin T C-Reactive Protein Total Protein Albumin Prealbumin Triglycerides Cholesterol LDL Cholesterol Direct HDL Cholesterol 25-OH Vitamin D Total PTH Intact Urine pH Urine WBC (Auto) Urine Creatinine Urine Total Protein Fluid Total Protein Vancomycin Trough Rheumatoid Factor Complement C4 Miscellaneous Test Crossmatch 09/05/16 09/05/16 09/05/16 11:38 17:48 23:22 WBC RBC Hgb Hct MCV MCH MCHC RDW Plt Count Lymph % (Auto) [place] % (Auto) Lymph # [place] # Baso # Seg Neutrophils % Seg Neuts % (Manual) Lymphocytes % (Manual) Monocytes % (Manual) Eosinophils % (Manual) Basophils % (Manual) Nucleated RBC % Seg Neutrophils # Seg Neutrophils # Man Lymphocytes # (Manual) Monocytes # (Manual) Eosinophils # (Manual) Basophils # (Manual) PT INR Fibrinogen dRVVT Confirm Interp Factor V Activity POC ABG pH POC ABG pCO2 POC ABG pO2 ABG pO2 ABG HCO3 ABG Base Excess ABG Hemoglobin Oxyhemoglobin Sodium Potassium Chloride Carbon Dioxide BUN Creatinine Glucose POC Glucose 164 H 186 H 195 H Lactic Acid Calcium Ionized Calcium Phosphorus Magnesium Direct Bilirubin AST ALT Alkaline Phosphatase Lactate Dehydrogenase Troponin T C-Reactive Protein Total Protein Albumin Prealbumin Triglycerides Cholesterol LDL Cholesterol Direct HDL Cholesterol 25-OH Vitamin D Total PTH Intact Urine pH Urine WBC (Auto) Urine Creatinine Urine Total Protein Fluid Total Protein Vancomycin Trough Rheumatoid Factor Complement C4 Miscellaneous Test Crossmatch 09/06/16 09/06/16 09/06/16 04:12 05:59 07:32 WBC RBC Hgb Hct MCV MCH MCHC RDW Plt Count Lymph % (Auto) [place] % (Auto) Lymph # [place] # Baso # Seg Neutrophils % Seg Neuts % (Manual) Lymphocytes % (Manual) Monocytes % (Manual) Eosinophils % (Manual) Basophils % (Manual) Nucleated RBC % Seg Neutrophils # Seg Neutrophils # Man Lymphocytes # (Manual) Monocytes # (Manual) Eosinophils # (Manual) Basophils # (Manual) PT INR Fibrinogen dRVVT Confirm Interp Factor V Activity POC ABG pH 7.514 H POC ABG pCO2 29.1 L POC ABG pO2 72 L ABG pO2 ABG HCO3 ABG Base Excess ABG Hemoglobin Oxyhemoglobin Sodium 133 L Potassium 3.4 L Chloride 94.9 L Carbon Dioxide 19 L BUN 30 H Creatinine 2.1 H Glucose 139 H POC Glucose 146 H Lactic Acid Calcium Ionized Calcium Phosphorus Magnesium Direct Bilirubin AST ALT Alkaline Phosphatase Lactate Dehydrogenase Troponin T C-Reactive Protein Total Protein Albumin Prealbumin Triglycerides Cholesterol LDL Cholesterol Direct HDL Cholesterol 25-OH Vitamin D Total PTH Intact Urine pH Urine WBC (Auto) Urine Creatinine Urine Total Protein Fluid Total Protein Vancomycin Trough Rheumatoid Factor Complement C4 Miscellaneous Test Crossmatch 09/06/16 09/06/16 09/06/16 11:57 17:58 19:02 WBC RBC Hgb Hct MCV MCH MCHC RDW Plt Count Lymph % (Auto) [place] % (Auto) Lymph # [place] # Baso # Seg Neutrophils % Seg Neuts % (Manual) Lymphocytes % (Manual) Monocytes % (Manual) Eosinophils % (Manual) Basophils % (Manual) Nucleated RBC % Seg Neutrophils # Seg Neutrophils # Man Lymphocytes # (Manual) Monocytes # (Manual) Eosinophils # (Manual) Basophils # (Manual) PT INR Fibrinogen dRVVT Confirm Interp Factor V Activity POC ABG pH 7.465 H POC ABG pCO2 32.0 L POC ABG pO2 ABG pO2 ABG HCO3 ABG Base Excess ABG Hemoglobin Oxyhemoglobin Sodium Potassium Chloride Carbon Dioxide BUN Creatinine Glucose POC Glucose 165 H 160 H Lactic Acid Calcium Ionized Calcium Phosphorus Magnesium Direct Bilirubin AST ALT Alkaline Phosphatase Lactate Dehydrogenase Troponin T C-Reactive Protein Total Protein Albumin Prealbumin Triglycerides Cholesterol LDL Cholesterol Direct HDL Cholesterol 25-OH Vitamin D Total PTH Intact Urine pH Urine WBC (Auto) Urine Creatinine Urine Total Protein Fluid Total Protein Vancomycin Trough Rheumatoid Factor Complement C4 Miscellaneous Test Crossmatch 09/06/16 09/07/16 09/07/16 23:45 02:47 02:47 WBC RBC Hgb Hct MCV MCH MCHC RDW Plt Count Lymph % (Auto) [place] % (Auto) Lymph # [place] # Baso # Seg Neutrophils % Seg Neuts % (Manual) Lymphocytes % (Manual) Monocytes % (Manual) Eosinophils % (Manual) Basophils % (Manual) Nucleated RBC % Seg Neutrophils # Seg Neutrophils # Man Lymphocytes # (Manual) Monocytes # (Manual) Eosinophils # (Manual) Basophils # (Manual) PT INR Fibrinogen dRVVT Confirm Interp Factor V Activity POC ABG pH POC ABG pCO2 POC ABG pO2 ABG pO2 ABG HCO3 ABG Base Excess ABG Hemoglobin Oxyhemoglobin Sodium Potassium Chloride Carbon Dioxide BUN Creatinine Glucose POC Glucose 204 H Lactic Acid Calcium Ionized Calcium Phosphorus Magnesium Direct Bilirubin AST ALT Alkaline Phosphatase Lactate Dehydrogenase Troponin T C-Reactive Protein Total Protein Albumin Prealbumin Triglycerides Cholesterol LDL Cholesterol Direct HDL Cholesterol 25-OH Vitamin D Total PTH Intact Urine pH Urine WBC (Auto) 68.0 H Urine Creatinine 106.1 H Urine Total Protein Fluid Total Protein Vancomycin Trough Rheumatoid Factor Complement C4 Miscellaneous Test Crossmatch 09/07/16 09/07/16 09/07/16 04:50 06:19 06:39 WBC RBC Hgb Hct MCV MCH MCHC RDW Plt Count Lymph % (Auto) [place] % (Auto) Lymph # [place] # Baso # Seg Neutrophils % Seg Neuts % (Manual) Lymphocytes % (Manual) Monocytes % (Manual) Eosinophils % (Manual) Basophils % (Manual) Nucleated RBC % Seg Neutrophils # Seg Neutrophils # Man Lymphocytes # (Manual) Monocytes # (Manual) Eosinophils # (Manual) Basophils # (Manual) PT INR Fibrinogen dRVVT Confirm Interp Factor V Activity POC ABG pH 7.457 H POC ABG pCO2 32.1 L POC ABG pO2 76 L ABG pO2 ABG HCO3 ABG Base Excess ABG Hemoglobin Oxyhemoglobin Sodium 132 L Potassium Chloride 94.7 L Carbon Dioxide BUN 53 H Creatinine 2.9 H Glucose 151 H POC Glucose 149 H Lactic Acid Calcium Ionized Calcium Phosphorus Magnesium Direct Bilirubin AST ALT Alkaline Phosphatase Lactate Dehydrogenase Troponin T C-Reactive Protein Total Protein Albumin Prealbumin Triglycerides Cholesterol LDL Cholesterol Direct HDL Cholesterol 25-OH Vitamin D Total PTH Intact Urine pH Urine WBC (Auto) Urine Creatinine Urine Total Protein Fluid Total Protein Vancomycin Trough Rheumatoid Factor Complement C4 Miscellaneous Test Crossmatch 09/07/16 09/07/16 09/07/16 09:20 11:43 11:43 WBC 19.4 H RBC Hgb 8.3 L Hct 26.4 L D MCV 72 L D MCH 22 L MCHC RDW 17.9 H Plt Count Lymph % (Auto) 8.5 L [place] % (Auto) Lymph # [place] # 1.0 H Baso # Seg Neutrophils % 85.8 H Seg Neuts % (Manual) Lymphocytes % (Manual) Monocytes % (Manual) Eosinophils % (Manual) Basophils % (Manual) Nucleated RBC % Seg Neutrophils # 16.6 H Seg Neutrophils # Man Lymphocytes # (Manual) Monocytes # (Manual) Eosinophils # (Manual) Basophils # (Manual) PT INR Fibrinogen dRVVT Confirm Interp Factor V Activity POC ABG pH POC ABG pCO2 POC ABG pO2 ABG pO2 ABG HCO3 ABG Base Excess ABG Hemoglobin Oxyhemoglobin Sodium 134 L Potassium Chloride 97.2 L Carbon Dioxide 20 L BUN 58 H Creatinine 2.9 H Glucose 147 H POC Glucose Lactic Acid Calcium Ionized Calcium Phosphorus 2.40 L Magnesium 2.40 H Direct Bilirubin AST ALT Alkaline Phosphatase Lactate Dehydrogenase Troponin T C-Reactive Protein Total Protein 5.8 L Albumin 2.2 L Prealbumin Triglycerides Cholesterol LDL Cholesterol Direct HDL Cholesterol 25-OH Vitamin D Total PTH Intact Urine pH Urine WBC (Auto) Urine Creatinine Urine Total Protein Fluid Total Protein Vancomycin Trough Rheumatoid Factor Complement C4 58 H Miscellaneous Test Crossmatch 09/07/16 09/07/16 09/07/16 11:50 16:00 17:31 WBC RBC Hgb Hct MCV MCH MCHC RDW Plt Count Lymph % (Auto) [place] % (Auto) Lymph # [place] # Baso # Seg Neutrophils % Seg Neuts % (Manual) Lymphocytes % (Manual) Monocytes % (Manual) Eosinophils % (Manual) Basophils % (Manual) Nucleated RBC % Seg Neutrophils # Seg Neutrophils # Man Lymphocytes # (Manual) Monocytes # (Manual) Eosinophils # (Manual) Basophils # (Manual) PT INR Fibrinogen dRVVT Confirm Interp Factor V Activity POC ABG pH POC ABG pCO2 POC ABG pO2 158 H ABG pO2 ABG HCO3 ABG Base Excess ABG Hemoglobin Oxyhemoglobin Sodium Potassium Chloride Carbon Dioxide BUN Creatinine Glucose POC Glucose 175 H Lactic Acid Calcium Ionized Calcium Phosphorus Magnesium Direct Bilirubin AST ALT Alkaline Phosphatase Lactate Dehydrogenase Troponin T C-Reactive Protein Total Protein Albumin Prealbumin Triglycerides Cholesterol LDL Cholesterol Direct HDL Cholesterol 25-OH Vitamin D Total PTH Intact Urine pH Urine WBC (Auto) Urine Creatinine 66.3 H Urine Total Protein Fluid Total Protein Vancomycin Trough Rheumatoid Factor Complement C4 Miscellaneous Test Crossmatch 09/07/16 09/08/16 09/08/16 23:50 05:46 06:18 WBC 17.8 H RBC 3.58 L Hgb 8.1 L Hct 25.5 L MCV 71 L MCH 23 L MCHC RDW 18.4 H Plt Count Lymph % (Auto) [place] % (Auto) Lymph # [place] # Baso # Seg Neutrophils % Seg Neuts % (Manual) 92.0 H Lymphocytes % (Manual) 6.0 L Monocytes % (Manual) Eosinophils % (Manual) Basophils % (Manual) Nucleated RBC % Seg Neutrophils # Seg Neutrophils # Man 16.4 H Lymphocytes # (Manual) 1.1 L Monocytes # (Manual) Eosinophils # (Manual) Basophils # (Manual) PT INR Fibrinogen dRVVT Confirm Interp Factor V Activity POC ABG pH POC ABG pCO2 34.3 L POC ABG pO2 71 L ABG pO2 ABG HCO3 ABG Base Excess ABG Hemoglobin Oxyhemoglobin Sodium Potassium Chloride Carbon Dioxide BUN Creatinine Glucose POC Glucose 216 H Lactic Acid Calcium Ionized Calcium Phosphorus Magnesium Direct Bilirubin AST ALT Alkaline Phosphatase Lactate Dehydrogenase Troponin T C-Reactive Protein Total Protein Albumin Prealbumin Triglycerides Cholesterol LDL Cholesterol Direct HDL Cholesterol 25-OH Vitamin D Total PTH Intact Urine pH Urine WBC (Auto) Urine Creatinine Urine Total Protein Fluid Total Protein Vancomycin Trough Rheumatoid Factor Complement C4 Miscellaneous Test Crossmatch 09/08/16 09/08/16 09/08/16 06:18 06:51 10:55 WBC RBC Hgb Hct MCV MCH MCHC RDW Plt Count Lymph % (Auto) [place] % (Auto) Lymph # [place] # Baso # Seg Neutrophils % Seg Neuts % (Manual) Lymphocytes % (Manual) Monocytes % (Manual) Eosinophils % (Manual) Basophils % (Manual) Nucleated RBC % Seg Neutrophils # Seg Neutrophils # Man Lymphocytes # (Manual) Monocytes # (Manual) Eosinophils # (Manual) Basophils # (Manual) PT INR Fibrinogen dRVVT Confirm Interp Factor V Activity POC ABG pH POC ABG pCO2 POC ABG pO2 ABG pO2 ABG HCO3 ABG Base Excess ABG Hemoglobin Oxyhemoglobin Sodium 133 L Potassium Chloride 96.9 L Carbon Dioxide 20 L BUN 63 H Creatinine 2.7 H Glucose 195 H POC Glucose 204 H 169 H Lactic Acid Calcium Ionized Calcium Phosphorus Magnesium Direct Bilirubin AST ALT Alkaline Phosphatase Lactate Dehydrogenase Troponin T C-Reactive Protein Total Protein Albumin Prealbumin Triglycerides Cholesterol LDL Cholesterol Direct HDL Cholesterol 25-OH Vitamin D Total PTH Intact Urine pH Urine WBC (Auto) Urine Creatinine Urine Total Protein Fluid Total Protein Vancomycin Trough Rheumatoid Factor Complement C4 Miscellaneous Test Crossmatch 09/08/16 09/08/16 09/08/16 11:48 11:48 11:48 WBC RBC Hgb Hct MCV MCH MCHC RDW Plt Count Lymph % (Auto) [place] % (Auto) Lymph # [place] # Baso # Seg Neutrophils % Seg Neuts % (Manual) Lymphocytes % (Manual) Monocytes % (Manual) Eosinophils % (Manual) Basophils % (Manual) Nucleated RBC % Seg Neutrophils # Seg Neutrophils # Man Lymphocytes # (Manual) Monocytes # (Manual) Eosinophils # (Manual) Basophils # (Manual) PT INR Fibrinogen 750 H dRVVT Confirm Interp Factor V Activity POC ABG pH POC ABG pCO2 POC ABG pO2 ABG pO2 ABG HCO3 ABG Base Excess ABG Hemoglobin Oxyhemoglobin Sodium Potassium Chloride Carbon Dioxide BUN Creatinine Glucose POC Glucose Lactic Acid Calcium Ionized Calcium Phosphorus Magnesium Direct Bilirubin AST ALT Alkaline Phosphatase Lactate Dehydrogenase Troponin T C-Reactive Protein 15.70 H Total Protein Albumin Prealbumin Triglycerides Cholesterol LDL Cholesterol Direct HDL Cholesterol 25-OH Vitamin D Total PTH Intact Urine pH Urine WBC (Auto) Urine Creatinine Urine Total Protein Fluid Total Protein Vancomycin Trough Rheumatoid Factor 24 H Complement C4 Miscellaneous Test Crossmatch 09/08/16 09/08/16 09/09/16 15:35 18:25 00:24 WBC RBC Hgb Hct MCV MCH MCHC RDW Plt Count Lymph % (Auto) [place] % (Auto) Lymph # [place] # Baso # Seg Neutrophils % Seg Neuts % (Manual) Lymphocytes % (Manual) Monocytes % (Manual) Eosinophils % (Manual) Basophils % (Manual) Nucleated RBC % Seg Neutrophils # Seg Neutrophils # Man Lymphocytes # (Manual) Monocytes # (Manual) Eosinophils # (Manual) Basophils # (Manual) PT INR Fibrinogen dRVVT Confirm Interp Factor V Activity 182 H POC ABG pH POC ABG pCO2 POC ABG pO2 ABG pO2 ABG HCO3 ABG Base Excess ABG Hemoglobin Oxyhemoglobin Sodium Potassium Chloride Carbon Dioxide BUN Creatinine Glucose POC Glucose 184 H 216 H Lactic Acid Calcium Ionized Calcium Phosphorus Magnesium Direct Bilirubin AST ALT Alkaline Phosphatase Lactate Dehydrogenase Troponin T C-Reactive Protein Total Protein Albumin Prealbumin Triglycerides Cholesterol LDL Cholesterol Direct HDL Cholesterol 25-OH Vitamin D Total PTH Intact Urine pH Urine WBC (Auto) Urine Creatinine Urine Total Protein Fluid Total Protein Vancomycin Trough Rheumatoid Factor Complement C4 Miscellaneous Test Crossmatch 09/09/16 09/09/16 09/09/16 03:00 03:00 04:04 WBC 27.9 H RBC Hgb 8.7 L Hct 28.1 L MCV 72 L MCH 22 L MCHC RDW 18.4 H Plt Count 485 H Lymph % (Auto) [place] % (Auto) Lymph # [place] # Baso # Seg Neutrophils % Seg Neuts % (Manual) 77.0 H Lymphocytes % (Manual) 9.0 L Monocytes % (Manual) Eosinophils % (Manual) Basophils % (Manual) Nucleated RBC % Seg Neutrophils # Seg Neutrophils # Man 21.5 H Lymphocytes # (Manual) Monocytes # (Manual) 2.0 H Eosinophils # (Manual) Basophils # (Manual) PT INR Fibrinogen dRVVT Confirm Interp Factor V Activity POC ABG pH POC ABG pCO2 POC ABG pO2 121 H ABG pO2 ABG HCO3 ABG Base Excess ABG Hemoglobin Oxyhemoglobin Sodium 135 L Potassium Chloride 96.3 L Carbon Dioxide 21 L BUN 83 H Creatinine 3.0 H Glucose 135 H POC Glucose Lactic Acid Calcium Ionized Calcium Phosphorus Magnesium Direct Bilirubin AST ALT Alkaline Phosphatase Lactate Dehydrogenase Troponin T C-Reactive Protein Total Protein Albumin Prealbumin Triglycerides Cholesterol LDL Cholesterol Direct HDL Cholesterol 25-OH Vitamin D Total PTH Intact Urine pH Urine WBC (Auto) Urine Creatinine Urine Total Protein Fluid Total Protein Vancomycin Trough Rheumatoid Factor Complement C4 Miscellaneous Test Crossmatch 09/09/16 09/09/16 09/09/16 05:41 11:55 14:13 WBC RBC Hgb Hct MCV MCH MCHC RDW Plt Count Lymph % (Auto) [place] % (Auto) Lymph # [place] # Baso # Seg Neutrophils % Seg Neuts % (Manual) Lymphocytes % (Manual) Monocytes % (Manual) Eosinophils % (Manual) Basophils % (Manual) Nucleated RBC % Seg Neutrophils # Seg Neutrophils # Man Lymphocytes # (Manual) Monocytes # (Manual) Eosinophils # (Manual) Basophils # (Manual) PT INR Fibrinogen dRVVT Confirm Interp Factor V Activity POC ABG pH POC ABG pCO2 POC ABG pO2 ABG pO2 ABG HCO3 ABG Base Excess ABG Hemoglobin Oxyhemoglobin Sodium Potassium Chloride Carbon Dioxide BUN Creatinine Glucose POC Glucose 155 H 186 H Lactic Acid Calcium Ionized Calcium Phosphorus Magnesium Direct Bilirubin AST ALT Alkaline Phosphatase Lactate Dehydrogenase Troponin T C-Reactive Protein Total Protein Albumin Prealbumin Triglycerides Cholesterol LDL Cholesterol Direct HDL Cholesterol 25-OH Vitamin D Total PTH Intact Urine pH Urine WBC (Auto) 25.0 H Urine Creatinine Urine Total Protein Fluid Total Protein Vancomycin Trough Rheumatoid Factor Complement C4 Miscellaneous Test Crossmatch 09/09/16 09/09/16 09/10/16 17:33 23:13 05:09 WBC RBC Hgb Hct MCV MCH MCHC RDW Plt Count Lymph % (Auto) [place] % (Auto) Lymph # [place] # Baso # Seg Neutrophils % Seg Neuts % (Manual) Lymphocytes % (Manual) Monocytes % (Manual) Eosinophils % (Manual) Basophils % (Manual) Nucleated RBC % Seg Neutrophils # Seg Neutrophils # Man Lymphocytes # (Manual) Monocytes # (Manual) Eosinophils # (Manual) Basophils # (Manual) PT INR Fibrinogen dRVVT Confirm Interp Factor V Activity POC ABG pH POC ABG pCO2 POC ABG pO2 74 L ABG pO2 ABG HCO3 ABG Base Excess ABG Hemoglobin Oxyhemoglobin Sodium Potassium Chloride Carbon Dioxide BUN Creatinine Glucose POC Glucose 211 H 215 H Lactic Acid Calcium Ionized Calcium Phosphorus Magnesium Direct Bilirubin AST ALT Alkaline Phosphatase Lactate Dehydrogenase Troponin T C-Reactive Protein Total Protein Albumin Prealbumin Triglycerides Cholesterol LDL Cholesterol Direct HDL Cholesterol 25-OH Vitamin D Total PTH Intact Urine pH Urine WBC (Auto) Urine Creatinine Urine Total Protein Fluid Total Protein Vancomycin Trough Rheumatoid Factor Complement C4 Miscellaneous Test Crossmatch 09/10/16 09/10/16 09/10/16 05:17 05:17 11:31 WBC 15.8 H RBC 3.25 L Hgb 7.3 L Hct 22.9 L MCV 71 L MCH 23 L MCHC RDW 18.4 H Plt Count Lymph % (Auto) [place] % (Auto) Lymph # [place] # Baso # Seg Neutrophils % Seg Neuts % (Manual) 91.0 H Lymphocytes % (Manual) 4.0 L Monocytes % (Manual) Eosinophils % (Manual) Basophils % (Manual) Nucleated RBC % Seg Neutrophils # Seg Neutrophils # Man 14.4 H Lymphocytes # (Manual) 0.6 L Monocytes # (Manual) Eosinophils # (Manual) Basophils # (Manual) PT INR Fibrinogen dRVVT Confirm Interp Factor V Activity POC ABG pH POC ABG pCO2 POC ABG pO2 ABG pO2 ABG HCO3 ABG Base Excess ABG Hemoglobin Oxyhemoglobin Sodium Potassium Chloride Carbon Dioxide 21 L BUN 93 H Creatinine 2.9 H Glucose 146 H POC Glucose 188 H Lactic Acid Calcium 8.1 L Ionized Calcium Phosphorus Magnesium Direct Bilirubin AST ALT Alkaline Phosphatase Lactate Dehydrogenase Troponin T C-Reactive Protein Total Protein Albumin Prealbumin Triglycerides Cholesterol LDL Cholesterol Direct HDL Cholesterol 25-OH Vitamin D Total PTH Intact Urine pH Urine WBC (Auto) Urine Creatinine Urine Total Protein Fluid Total Protein Vancomycin Trough Rheumatoid Factor Complement C4 Miscellaneous Test Crossmatch 09/10/16 09/10/16 09/10/16 13:17 17:20 23:32 WBC RBC Hgb Hct MCV MCH MCHC RDW Plt Count Lymph % (Auto) [place] % (Auto) Lymph # [place] # Baso # Seg Neutrophils % Seg Neuts % (Manual) Lymphocytes % (Manual) Monocytes % (Manual) Eosinophils % (Manual) Basophils % (Manual) Nucleated RBC % Seg Neutrophils # Seg Neutrophils # Man Lymphocytes # (Manual) Monocytes # (Manual) Eosinophils # (Manual) Basophils # (Manual) PT INR Fibrinogen dRVVT Confirm Interp Factor V Activity POC ABG pH POC ABG pCO2 POC ABG pO2 ABG pO2 ABG HCO3 ABG Base Excess ABG Hemoglobin Oxyhemoglobin Sodium Potassium Chloride Carbon Dioxide BUN Creatinine Glucose POC Glucose 199 H 186 H Lactic Acid Calcium Ionized Calcium Phosphorus Magnesium Direct Bilirubin AST ALT Alkaline Phosphatase Lactate Dehydrogenase Troponin T C-Reactive Protein Total Protein Albumin Prealbumin Triglycerides Cholesterol LDL Cholesterol Direct HDL Cholesterol 25-OH Vitamin D Total PTH Intact Urine pH Urine WBC (Auto) Urine Creatinine Urine Total Protein Fluid Total Protein Vancomycin Trough Rheumatoid Factor Complement C4 Miscellaneous Test Crossmatch See Detail 09/11/16 09/11/16 09/11/16 05:10 05:10 05:17 WBC 28.4 H RBC Hgb 9.2 L Hct 29.3 L D MCV 73 L MCH 23 L MCHC RDW 18.9 H Plt Count 452 H Lymph % (Auto) [place] % (Auto) Lymph # [place] # Baso # Seg Neutrophils % Seg Neuts % (Manual) 89.5 H Lymphocytes % (Manual) 2.0 L Monocytes % (Manual) Eosinophils % (Manual) Basophils % (Manual) Nucleated RBC % Seg Neutrophils # Seg Neutrophils # Man 25.4 H Lymphocytes # (Manual) 0.6 L Monocytes # (Manual) 1.3 H Eosinophils # (Manual) Basophils # (Manual) PT INR Fibrinogen dRVVT Confirm Interp Factor V Activity POC ABG pH POC ABG pCO2 POC ABG pO2 ABG pO2 ABG HCO3 ABG Base Excess ABG Hemoglobin Oxyhemoglobin Sodium 136 L Potassium Chloride Carbon Dioxide 18 L BUN 107 H Creatinine 2.6 H Glucose 187 H POC Glucose 230 H Lactic Acid Calcium 8.3 L Ionized Calcium Phosphorus Magnesium Direct Bilirubin AST ALT Alkaline Phosphatase Lactate Dehydrogenase Troponin T C-Reactive Protein Total Protein Albumin Prealbumin Triglycerides Cholesterol LDL Cholesterol Direct HDL Cholesterol 25-OH Vitamin D Total PTH Intact Urine pH Urine WBC (Auto) Urine Creatinine Urine Total Protein Fluid Total Protein Vancomycin Trough Rheumatoid Factor Complement C4 Miscellaneous Test Crossmatch 09/11/16 09/11/16 09/11/16 05:55 12:02 17:32 WBC RBC Hgb Hct MCV MCH MCHC RDW Plt Count Lymph % (Auto) [place] % (Auto) Lymph # [place] # Baso # Seg Neutrophils % Seg Neuts % (Manual) Lymphocytes % (Manual) Monocytes % (Manual) Eosinophils % (Manual) Basophils % (Manual) Nucleated RBC % Seg Neutrophils # Seg Neutrophils # Man Lymphocytes # (Manual) Monocytes # (Manual) Eosinophils # (Manual) Basophils # (Manual) PT INR Fibrinogen dRVVT Confirm Interp Factor V Activity POC ABG pH POC ABG pCO2 33.8 L POC ABG pO2 ABG pO2 ABG HCO3 ABG Base Excess ABG Hemoglobin Oxyhemoglobin Sodium Potassium Chloride Carbon Dioxide BUN Creatinine Glucose POC Glucose 191 H 239 H Lactic Acid Calcium Ionized Calcium Phosphorus Magnesium Direct Bilirubin AST ALT Alkaline Phosphatase Lactate Dehydrogenase Troponin T C-Reactive Protein Total Protein Albumin Prealbumin Triglycerides Cholesterol LDL Cholesterol Direct HDL Cholesterol 25-OH Vitamin D Total PTH Intact Urine pH Urine WBC (Auto) Urine Creatinine Urine Total Protein Fluid Total Protein Vancomycin Trough Rheumatoid Factor Complement C4 Miscellaneous Test Crossmatch 09/11/16 09/12/16 09/12/16 23:52 05:09 05:32 WBC RBC Hgb Hct MCV MCH MCHC RDW Plt Count Lymph % (Auto) [place] % (Auto) Lymph # [place] # Baso # Seg Neutrophils % Seg Neuts % (Manual) Lymphocytes % (Manual) Monocytes % (Manual) Eosinophils % (Manual) Basophils % (Manual) Nucleated RBC % Seg Neutrophils # Seg Neutrophils # Man Lymphocytes # (Manual) Monocytes # (Manual) Eosinophils # (Manual) Basophils # (Manual) PT INR Fibrinogen dRVVT Confirm Interp Factor V Activity POC ABG pH POC ABG pCO2 34.6 L POC ABG pO2 ABG pO2 ABG HCO3 ABG Base Excess ABG Hemoglobin Oxyhemoglobin Sodium Potassium Chloride Carbon Dioxide BUN Creatinine Glucose POC Glucose 265 H 184 H Lactic Acid Calcium Ionized Calcium Phosphorus Magnesium Direct Bilirubin AST ALT Alkaline Phosphatase Lactate Dehydrogenase Troponin T C-Reactive Protein Total Protein Albumin Prealbumin Triglycerides Cholesterol LDL Cholesterol Direct HDL Cholesterol 25-OH Vitamin D Total PTH Intact Urine pH Urine WBC (Auto) Urine Creatinine Urine Total Protein Fluid Total Protein Vancomycin Trough Rheumatoid Factor Complement C4 Miscellaneous Test Crossmatch 09/12/16 09/12/16 09/12/16 06:45 06:45 07:22 WBC 31.7 H RBC 3.54 L Hgb 8.3 L Hct 25.9 L MCV 73 L MCH 23 L MCHC RDW 18.9 H Plt Count Lymph % (Auto) [place] % (Auto) Lymph # [place] # Baso # Seg Neutrophils % Seg Neuts % (Manual) 88.5 H Lymphocytes % (Manual) 4.5 L Monocytes % (Manual) Eosinophils % (Manual) Basophils % (Manual) Nucleated RBC % Seg Neutrophils # Seg Neutrophils # Man 28.1 H Lymphocytes # (Manual) Monocytes # (Manual) 1.0 H Eosinophils # (Manual) Basophils # (Manual) PT INR Fibrinogen dRVVT Confirm Interp Factor V Activity POC ABG pH POC ABG pCO2 POC ABG pO2 ABG pO2 ABG HCO3 ABG Base Excess ABG Hemoglobin Oxyhemoglobin Sodium Potassium Chloride Carbon Dioxide 20 L BUN 115 H Creatinine 2.7 H Glucose 165 H POC Glucose Lactic Acid Calcium 8.0 L Ionized Calcium Phosphorus Magnesium Direct Bilirubin AST ALT Alkaline Phosphatase Lactate Dehydrogenase Troponin T C-Reactive Protein Total Protein Albumin Prealbumin Triglycerides 217 H Cholesterol LDL Cholesterol Direct HDL Cholesterol 25-OH Vitamin D Total PTH Intact Urine pH Urine WBC (Auto) Urine Creatinine Urine Total Protein Fluid Total Protein Vancomycin Trough Rheumatoid Factor Complement C4 Miscellaneous Test Crossmatch 09/12/16 09/12/16 09/12/16 07:22 09:59 12:21 WBC RBC Hgb Hct MCV MCH MCHC RDW Plt Count Lymph % (Auto) [place] % (Auto) Lymph # [place] # Baso # Seg Neutrophils % Seg Neuts % (Manual) Lymphocytes % (Manual) Monocytes % (Manual) Eosinophils % (Manual) Basophils % (Manual) Nucleated RBC % Seg Neutrophils # Seg Neutrophils # Man Lymphocytes # (Manual) Monocytes # (Manual) Eosinophils # (Manual) Basophils # (Manual) PT INR Fibrinogen dRVVT Confirm Interp Positive H Factor V Activity POC ABG pH POC ABG pCO2 POC ABG pO2 ABG pO2 ABG HCO3 ABG Base Excess ABG Hemoglobin Oxyhemoglobin Sodium Potassium Chloride Carbon Dioxide BUN Creatinine Glucose POC Glucose 224 H Lactic Acid Calcium Ionized Calcium Phosphorus Magnesium Direct Bilirubin AST ALT Alkaline Phosphatase Lactate Dehydrogenase Troponin T C-Reactive Protein 1.70 H Total Protein Albumin Prealbumin Triglycerides Cholesterol LDL Cholesterol Direct HDL Cholesterol 25-OH Vitamin D Total PTH Intact Urine pH Urine WBC (Auto) Urine Creatinine Urine Total Protein Fluid Total Protein Vancomycin Trough Rheumatoid Factor Complement C4 Miscellaneous Test Crossmatch 09/12/16 09/12/16 09/13/16 16:51 23:28 04:00 WBC 45.0 H* RBC Hgb 9.4 L Hct MCV 75 L MCH 23 L MCHC RDW 19.0 H Plt Count 470 H Lymph % (Auto) [place] % (Auto) Lymph # [place] # Baso # Seg Neutrophils % Seg Neuts % (Manual) 89.0 H Lymphocytes % (Manual) 5.0 L Monocytes % (Manual) Eosinophils % (Manual) Basophils % (Manual) Nucleated RBC % Seg Neutrophils # Seg Neutrophils # Man 40.1 H Lymphocytes # (Manual) Monocytes # (Manual) Eosinophils # (Manual) Basophils # (Manual) PT INR Fibrinogen dRVVT Confirm Interp Factor V Activity POC ABG pH POC ABG pCO2 POC ABG pO2 ABG pO2 ABG HCO3 ABG Base Excess ABG Hemoglobin Oxyhemoglobin Sodium Potassium Chloride Carbon Dioxide BUN Creatinine Glucose POC Glucose 169 H 150 H Lactic Acid Calcium Ionized Calcium Phosphorus Magnesium Direct Bilirubin AST ALT Alkaline Phosphatase Lactate Dehydrogenase Troponin T C-Reactive Protein Total Protein Albumin Prealbumin Triglycerides Cholesterol LDL Cholesterol Direct HDL Cholesterol 25-OH Vitamin D Total PTH Intact Urine pH Urine WBC (Auto) Urine Creatinine Urine Total Protein Fluid Total Protein Vancomycin Trough Rheumatoid Factor Complement C4 Miscellaneous Test Crossmatch 09/13/16 09/13/16 09/13/16 04:00 11:26 17:31 WBC RBC Hgb Hct MCV MCH MCHC RDW Plt Count Lymph % (Auto) [place] % (Auto) Lymph # [place] # Baso # Seg Neutrophils % Seg Neuts % (Manual) Lymphocytes % (Manual) Monocytes % (Manual) Eosinophils % (Manual) Basophils % (Manual) Nucleated RBC % Seg Neutrophils # Seg Neutrophils # Man Lymphocytes # (Manual) Monocytes # (Manual) Eosinophils # (Manual) Basophils # (Manual) PT INR Fibrinogen dRVVT Confirm Interp Factor V Activity POC ABG pH POC ABG pCO2 POC ABG pO2 ABG pO2 ABG HCO3 ABG Base Excess ABG Hemoglobin Oxyhemoglobin Sodium Potassium Chloride Carbon Dioxide 20 L BUN 116 H Creatinine 3.0 H Glucose 172 H POC Glucose 140 H 183 H Lactic Acid Calcium Ionized Calcium Phosphorus Magnesium Direct Bilirubin AST ALT Alkaline Phosphatase Lactate Dehydrogenase Troponin T C-Reactive Protein Total Protein 6.2 L Albumin 2.9 L Prealbumin Triglycerides Cholesterol LDL Cholesterol Direct HDL Cholesterol 25-OH Vitamin D Total PTH Intact Urine pH Urine WBC (Auto) Urine Creatinine Urine Total Protein Fluid Total Protein Vancomycin Trough Rheumatoid Factor Complement C4 Miscellaneous Test Crossmatch 09/13/16 09/14/16 09/14/16 23:23 04:06 04:07 WBC 29.4 H RBC Hgb 8.9 L Hct 27.3 L MCV 75 L MCH 24 L MCHC RDW 19.1 H Plt Count Lymph % (Auto) [place] % (Auto) Lymph # [place] # Baso # Seg Neutrophils % Seg Neuts % (Manual) 84.0 H Lymphocytes % (Manual) 6.0 L Monocytes % (Manual) 9.0 H Eosinophils % (Manual) Basophils % (Manual) Nucleated RBC % Seg Neutrophils # Seg Neutrophils # Man 24.7 H Lymphocytes # (Manual) Monocytes # (Manual) 2.6 H Eosinophils # (Manual) Basophils # (Manual) PT INR Fibrinogen dRVVT Confirm Interp Factor V Activity POC ABG pH 7.342 L POC ABG pCO2 POC ABG pO2 116 H ABG pO2 ABG HCO3 ABG Base Excess ABG Hemoglobin Oxyhemoglobin Sodium Potassium Chloride Carbon Dioxide BUN Creatinine Glucose POC Glucose 154 H Lactic Acid Calcium Ionized Calcium Phosphorus Magnesium Direct Bilirubin AST ALT Alkaline Phosphatase Lactate Dehydrogenase Troponin T C-Reactive Protein Total Protein Albumin Prealbumin Triglycerides Cholesterol LDL Cholesterol Direct HDL Cholesterol 25-OH Vitamin D Total PTH Intact Urine pH Urine WBC (Auto) Urine Creatinine Urine Total Protein Fluid Total Protein Vancomycin Trough Rheumatoid Factor Complement C4 Miscellaneous Test Crossmatch 09/14/16 09/14/16 09/14/16 04:07 05:29 12:19 WBC RBC Hgb Hct MCV MCH MCHC RDW Plt Count Lymph % (Auto) [place] % (Auto) Lymph # [place] # Baso # Seg Neutrophils % Seg Neuts % (Manual) Lymphocytes % (Manual) Monocytes % (Manual) Eosinophils % (Manual) Basophils % (Manual) Nucleated RBC % Seg Neutrophils # Seg Neutrophils # Man Lymphocytes # (Manual) Monocytes # (Manual) Eosinophils # (Manual) Basophils # (Manual) PT INR Fibrinogen dRVVT Confirm Interp Factor V Activity POC ABG pH POC ABG pCO2 POC ABG pO2 ABG pO2 ABG HCO3 ABG Base Excess ABG Hemoglobin Oxyhemoglobin Sodium 136 L Potassium Chloride Carbon Dioxide 18 L BUN 121 H Creatinine 2.8 H Glucose 214 H POC Glucose 239 H 181 H Lactic Acid Calcium Ionized Calcium Phosphorus Magnesium Direct Bilirubin AST ALT Alkaline Phosphatase Lactate Dehydrogenase Troponin T C-Reactive Protein Total Protein Albumin Prealbumin Triglycerides Cholesterol LDL Cholesterol Direct HDL Cholesterol 25-OH Vitamin D Total PTH Intact Urine pH Urine WBC (Auto) Urine Creatinine Urine Total Protein Fluid Total Protein Vancomycin Trough Rheumatoid Factor Complement C4 Miscellaneous Test Crossmatch 09/14/16 09/14/16 09/15/16 18:12 23:37 05:00 WBC 26.1 H RBC 3.05 L Hgb 7.2 L Hct 22.9 L MCV 75 L MCH 24 L MCHC RDW 19.0 H Plt Count Lymph % (Auto) [place] % (Auto) Lymph # [place] # Baso # Seg Neutrophils % Seg Neuts % (Manual) Lymphocytes % (Manual) Monocytes % (Manual) Eosinophils % (Manual) Basophils % (Manual) Nucleated RBC % Seg Neutrophils # Seg Neutrophils # Man Lymphocytes # (Manual) Monocytes # (Manual) Eosinophils # (Manual) Basophils # (Manual) PT INR Fibrinogen dRVVT Confirm Interp Factor V Activity POC ABG pH POC ABG pCO2 POC ABG pO2 ABG pO2 ABG HCO3 ABG Base Excess ABG Hemoglobin Oxyhemoglobin Sodium Potassium Chloride Carbon Dioxide BUN Creatinine Glucose POC Glucose 266 H 154 H Lactic Acid Calcium Ionized Calcium Phosphorus Magnesium Direct Bilirubin AST ALT Alkaline Phosphatase Lactate Dehydrogenase Troponin T C-Reactive Protein Total Protein Albumin Prealbumin Triglycerides Cholesterol LDL Cholesterol Direct HDL Cholesterol 25-OH Vitamin D Total PTH Intact Urine pH Urine WBC (Auto) Urine Creatinine Urine Total Protein Fluid Total Protein Vancomycin Trough Rheumatoid Factor Complement C4 Miscellaneous Test Crossmatch 09/15/16 09/15/16 09/15/16 05:00 05:17 12:45 WBC RBC Hgb Hct MCV MCH MCHC RDW Plt Count Lymph % (Auto) [place] % (Auto) Lymph # [place] # Baso # Seg Neutrophils % Seg Neuts % (Manual) Lymphocytes % (Manual) Monocytes % (Manual) Eosinophils % (Manual) Basophils % (Manual) Nucleated RBC % Seg Neutrophils # Seg Neutrophils # Man Lymphocytes # (Manual) Monocytes # (Manual) Eosinophils # (Manual) Basophils # (Manual) PT INR Fibrinogen dRVVT Confirm Interp Factor V Activity POC ABG pH POC ABG pCO2 POC ABG pO2 ABG pO2 ABG HCO3 ABG Base Excess ABG Hemoglobin Oxyhemoglobin Sodium Potassium 5.2 H Chloride Carbon Dioxide 18 L BUN 139 H Creatinine 3.7 H Glucose 227 H POC Glucose 226 H 244 H Lactic Acid Calcium 8.3 L Ionized Calcium Phosphorus Magnesium Direct Bilirubin AST ALT Alkaline Phosphatase Lactate Dehydrogenase Troponin T C-Reactive Protein Total Protein Albumin Prealbumin Triglycerides Cholesterol LDL Cholesterol Direct HDL Cholesterol 25-OH Vitamin D Total PTH Intact Urine pH Urine WBC (Auto) Urine Creatinine Urine Total Protein Fluid Total Protein Vancomycin Trough Rheumatoid Factor Complement C4 Miscellaneous Test Crossmatch 09/15/16 09/15/16 09/15/16 14:32 17:33 23:35 WBC RBC Hgb Hct MCV MCH MCHC RDW Plt Count Lymph % (Auto) [place] % (Auto) Lymph # [place] # Baso # Seg Neutrophils % Seg Neuts % (Manual) Lymphocytes % (Manual) Monocytes % (Manual) Eosinophils % (Manual) Basophils % (Manual) Nucleated RBC % Seg Neutrophils # Seg Neutrophils # Man Lymphocytes # (Manual) Monocytes # (Manual) Eosinophils # (Manual) Basophils # (Manual) PT INR Fibrinogen dRVVT Confirm Interp Factor V Activity POC ABG pH POC ABG pCO2 27.7 L POC ABG pO2 120 H ABG pO2 ABG HCO3 ABG Base Excess ABG Hemoglobin Oxyhemoglobin Sodium Potassium Chloride Carbon Dioxide BUN Creatinine Glucose POC Glucose 232 H 167 H Lactic Acid Calcium Ionized Calcium Phosphorus Magnesium Direct Bilirubin AST ALT Alkaline Phosphatase Lactate Dehydrogenase Troponin T C-Reactive Protein Total Protein Albumin Prealbumin Triglycerides Cholesterol LDL Cholesterol Direct HDL Cholesterol 25-OH Vitamin D Total PTH Intact Urine pH Urine WBC (Auto) Urine Creatinine Urine Total Protein Fluid Total Protein Vancomycin Trough Rheumatoid Factor Complement C4 Miscellaneous Test Crossmatch 09/16/16 09/16/16 09/16/16 03:58 10:27 10:27 WBC 19.0 H RBC 2.77 L Hgb 6.5 L Hct 20.9 L MCV 76 L MCH 23 L MCHC RDW 19.3 H Plt Count Lymph % (Auto) 11.0 L [place] % (Auto) Lymph # [place] # 1.1 H Baso # Seg Neutrophils % 82.5 H Seg Neuts % (Manual) Lymphocytes % (Manual) Monocytes % (Manual) Eosinophils % (Manual) Basophils % (Manual) Nucleated RBC % Seg Neutrophils # 15.7 H Seg Neutrophils # Man Lymphocytes # (Manual) Monocytes # (Manual) Eosinophils # (Manual) Basophils # (Manual) PT INR Fibrinogen dRVVT Confirm Interp Factor V Activity POC ABG pH POC ABG pCO2 POC ABG pO2 ABG pO2 ABG HCO3 ABG Base Excess ABG Hemoglobin Oxyhemoglobin Sodium Potassium Chloride 109.3 H Carbon Dioxide 18 L BUN 139 H Creatinine 4.1 H Glucose 144 H POC Glucose 146 H Lactic Acid Calcium 8.1 L Ionized Calcium Phosphorus Magnesium Direct Bilirubin AST ALT Alkaline Phosphatase Lactate Dehydrogenase Troponin T C-Reactive Protein Total Protein Albumin Prealbumin Triglycerides Cholesterol LDL Cholesterol Direct HDL Cholesterol 25-OH Vitamin D Total PTH Intact Urine pH Urine WBC (Auto) Urine Creatinine Urine Total Protein Fluid Total Protein Vancomycin Trough Rheumatoid Factor Complement C4 Miscellaneous Test Crossmatch 09/16/16 09/16/16 09/16/16 12:04 12:10 13:55 WBC RBC Hgb Hct MCV MCH MCHC RDW Plt Count Lymph % (Auto) [place] % (Auto) Lymph # [place] # Baso # Seg Neutrophils % Seg Neuts % (Manual) Lymphocytes % (Manual) Monocytes % (Manual) Eosinophils % (Manual) Basophils % (Manual) Nucleated RBC % Seg Neutrophils # Seg Neutrophils # Man Lymphocytes # (Manual) Monocytes # (Manual) Eosinophils # (Manual) Basophils # (Manual) PT INR Fibrinogen dRVVT Confirm Interp Factor V Activity POC ABG pH POC ABG pCO2 32.9 L POC ABG pO2 ABG pO2 ABG HCO3 ABG Base Excess ABG Hemoglobin Oxyhemoglobin Sodium Potassium Chloride Carbon Dioxide BUN Creatinine Glucose POC Glucose 185 H Lactic Acid Calcium Ionized Calcium Phosphorus Magnesium Direct Bilirubin AST ALT Alkaline Phosphatase Lactate Dehydrogenase Troponin T C-Reactive Protein Total Protein Albumin Prealbumin Triglycerides Cholesterol LDL Cholesterol Direct HDL Cholesterol 25-OH Vitamin D Total PTH Intact Urine pH Urine WBC (Auto) Urine Creatinine Urine Total Protein Fluid Total Protein Vancomycin Trough Rheumatoid Factor Complement C4 Miscellaneous Test Crossmatch See Detail 09/16/16 09/16/16 09/16/16 17:55 19:19 23:48 WBC RBC Hgb Hct MCV MCH MCHC RDW Plt Count Lymph % (Auto) [place] % (Auto) Lymph # [place] # Baso # Seg Neutrophils % Seg Neuts % (Manual) Lymphocytes % (Manual) Monocytes % (Manual) Eosinophils % (Manual) Basophils % (Manual) Nucleated RBC % Seg Neutrophils # Seg Neutrophils # Man Lymphocytes # (Manual) Monocytes # (Manual) Eosinophils # (Manual) Basophils # (Manual) PT INR Fibrinogen dRVVT Confirm Interp Factor V Activity POC ABG pH POC ABG pCO2 POC ABG pO2 ABG pO2 ABG HCO3 ABG Base Excess ABG Hemoglobin Oxyhemoglobin Sodium Potassium Chloride Carbon Dioxide BUN Creatinine Glucose POC Glucose 222 H 107 H Lactic Acid Calcium Ionized Calcium Phosphorus Magnesium Direct Bilirubin AST ALT Alkaline Phosphatase Lactate Dehydrogenase Troponin T C-Reactive Protein Total Protein Albumin Prealbumin Triglycerides Cholesterol LDL Cholesterol Direct HDL Cholesterol 25-OH Vitamin D Total PTH Intact Urine pH Urine WBC (Auto) Urine Creatinine 47.4 H Urine Total Protein 16 H Fluid Total Protein Vancomycin Trough Rheumatoid Factor Complement C4 Miscellaneous Test Crossmatch 09/17/16 09/17/16 09/17/16 03:45 03:45 04:55 WBC 19.6 H RBC 3.41 L Hgb 8.5 L Hct 26.7 L MCV 78 L MCH 25 L MCHC RDW 19.9 H Plt Count Lymph % (Auto) 9.3 L [place] % (Auto) Lymph # [place] # 1.2 H Baso # Seg Neutrophils % 83.9 H Seg Neuts % (Manual) Lymphocytes % (Manual) Monocytes % (Manual) Eosinophils % (Manual) Basophils % (Manual) Nucleated RBC % Seg Neutrophils # 16.4 H Seg Neutrophils # Man Lymphocytes # (Manual) Monocytes # (Manual) Eosinophils # (Manual) Basophils # (Manual) PT INR Fibrinogen dRVVT Confirm Interp Factor V Activity POC ABG pH POC ABG pCO2 POC ABG pO2 ABG pO2 ABG HCO3 ABG Base Excess ABG Hemoglobin Oxyhemoglobin Sodium 146 H Potassium 5.1 H Chloride 110.9 H Carbon Dioxide 16 L BUN 146 H Creatinine 4.0 H Glucose 108 H POC Glucose 133 H Lactic Acid Calcium Ionized Calcium Phosphorus Magnesium 3.00 H Direct Bilirubin AST ALT Alkaline Phosphatase Lactate Dehydrogenase Troponin T C-Reactive Protein Total Protein Albumin Prealbumin Triglycerides Cholesterol LDL Cholesterol Direct HDL Cholesterol 25-OH Vitamin D Total PTH Intact Urine pH Urine WBC (Auto) Urine Creatinine Urine Total Protein Fluid Total Protein Vancomycin Trough Rheumatoid Factor Complement C4 Miscellaneous Test Crossmatch 09/17/16 09/17/16 09/17/16 11:15 17:33 23:47 WBC RBC Hgb Hct MCV MCH MCHC RDW Plt Count Lymph % (Auto) [place] % (Auto) Lymph # [place] # Baso # Seg Neutrophils % Seg Neuts % (Manual) Lymphocytes % (Manual) Monocytes % (Manual) Eosinophils % (Manual) Basophils % (Manual) Nucleated RBC % Seg Neutrophils # Seg Neutrophils # Man Lymphocytes # (Manual) Monocytes # (Manual) Eosinophils # (Manual) Basophils # (Manual) PT INR Fibrinogen dRVVT Confirm Interp Factor V Activity POC ABG pH POC ABG pCO2 POC ABG pO2 ABG pO2 ABG HCO3 ABG Base Excess ABG Hemoglobin Oxyhemoglobin Sodium Potassium Chloride Carbon Dioxide BUN Creatinine Glucose POC Glucose 176 H 246 H 148 H Lactic Acid Calcium Ionized Calcium Phosphorus Magnesium Direct Bilirubin AST ALT Alkaline Phosphatase Lactate Dehydrogenase Troponin T C-Reactive Protein Total Protein Albumin Prealbumin Triglycerides Cholesterol LDL Cholesterol Direct HDL Cholesterol 25-OH Vitamin D Total PTH Intact Urine pH Urine WBC (Auto) Urine Creatinine Urine Total Protein Fluid Total Protein Vancomycin Trough Rheumatoid Factor Complement C4 Miscellaneous Test Crossmatch 09/18/16 09/18/16 09/18/16 05:33 08:31 08:31 WBC 18.0 H RBC 3.17 L Hgb 9.0 L Hct 25.7 L MCV MCH MCHC 35 H RDW 20.4 H Plt Count Lymph % (Auto) [place] % (Auto) Lymph # [place] # Baso # Seg Neutrophils % Seg Neuts % (Manual) Lymphocytes % (Manual) Monocytes % (Manual) Eosinophils % (Manual) Basophils % (Manual) Nucleated RBC % Seg Neutrophils # Seg Neutrophils # Man Lymphocytes # (Manual) Monocytes # (Manual) Eosinophils # (Manual) Basophils # (Manual) PT INR Fibrinogen dRVVT Confirm Interp Factor V Activity POC ABG pH POC ABG pCO2 POC ABG pO2 ABG pO2 ABG HCO3 ABG Base Excess ABG Hemoglobin Oxyhemoglobin Sodium Potassium Chloride Carbon Dioxide 15 L BUN 124 H Creatinine 3.8 H Glucose POC Glucose 120 H Lactic Acid Calcium 8.1 L Ionized Calcium Phosphorus Magnesium Direct Bilirubin AST ALT Alkaline Phosphatase Lactate Dehydrogenase Troponin T C-Reactive Protein Total Protein Albumin Prealbumin Triglycerides Cholesterol LDL Cholesterol Direct HDL Cholesterol 25-OH Vitamin D Total PTH Intact Urine pH Urine WBC (Auto) Urine Creatinine Urine Total Protein Fluid Total Protein Vancomycin Trough Rheumatoid Factor Complement C4 Miscellaneous Test Crossmatch 09/18/16 09/18/16 09/18/16 12:03 15:34 17:50 WBC RBC Hgb Hct MCV MCH MCHC RDW Plt Count Lymph % (Auto) [place] % (Auto) Lymph # [place] # Baso # Seg Neutrophils % Seg Neuts % (Manual) Lymphocytes % (Manual) Monocytes % (Manual) Eosinophils % (Manual) Basophils % (Manual) Nucleated RBC % Seg Neutrophils # Seg Neutrophils # Man Lymphocytes # (Manual) Monocytes # (Manual) Eosinophils # (Manual) Basophils # (Manual) PT INR Fibrinogen dRVVT Confirm Interp Factor V Activity POC ABG pH POC ABG pCO2 25.7 L POC ABG pO2 66 L ABG pO2 ABG HCO3 ABG Base Excess ABG Hemoglobin Oxyhemoglobin Sodium Potassium Chloride Carbon Dioxide BUN Creatinine Glucose POC Glucose 156 H 220 H Lactic Acid Calcium Ionized Calcium Phosphorus Magnesium Direct Bilirubin AST ALT Alkaline Phosphatase Lactate Dehydrogenase Troponin T C-Reactive Protein Total Protein Albumin Prealbumin Triglycerides Cholesterol LDL Cholesterol Direct HDL Cholesterol 25-OH Vitamin D Total PTH Intact Urine pH Urine WBC (Auto) Urine Creatinine Urine Total Protein Fluid Total Protein Vancomycin Trough Rheumatoid Factor Complement C4 Miscellaneous Test Crossmatch 09/19/16 09/19/16 09/19/16 06:21 09:50 09:50 WBC 17.1 H RBC 3.49 L Hgb 9.0 L Hct 28.1 L MCV MCH 26 L MCHC RDW 20.8 H Plt Count Lymph % (Auto) 11.5 L [place] % (Auto) 7.5 H Lymph # [place] # 1.3 H Baso # Seg Neutrophils % 79.8 H Seg Neuts % (Manual) Lymphocytes % (Manual) Monocytes % (Manual) Eosinophils % (Manual) Basophils % (Manual) Nucleated RBC % Seg Neutrophils # 13.7 H Seg Neutrophils # Man Lymphocytes # (Manual) Monocytes # (Manual) Eosinophils # (Manual) Basophils # (Manual) PT INR Fibrinogen dRVVT Confirm Interp Factor V Activity POC ABG pH POC ABG pCO2 POC ABG pO2 ABG pO2 ABG HCO3 ABG Base Excess ABG Hemoglobin Oxyhemoglobin Sodium Potassium Chloride 108.6 H Carbon Dioxide 15 L BUN 125 H Creatinine 4.1 H Glucose 124 H POC Glucose 119 H Lactic Acid Calcium Ionized Calcium Phosphorus Magnesium Direct Bilirubin AST ALT Alkaline Phosphatase Lactate Dehydrogenase Troponin T C-Reactive Protein Total Protein Albumin Prealbumin Triglycerides Cholesterol LDL Cholesterol Direct HDL Cholesterol 25-OH Vitamin D Total PTH Intact Urine pH Urine WBC (Auto) Urine Creatinine Urine Total Protein Fluid Total Protein Vancomycin Trough Rheumatoid Factor Complement C4 Miscellaneous Test Crossmatch 09/19/16 09/19/16 09/19/16 11:25 17:53 23:36 WBC RBC Hgb Hct MCV MCH MCHC RDW Plt Count Lymph % (Auto) [place] % (Auto) Lymph # [place] # Baso # Seg Neutrophils % Seg Neuts % (Manual) Lymphocytes % (Manual) Monocytes % (Manual) Eosinophils % (Manual) Basophils % (Manual) Nucleated RBC % Seg Neutrophils # Seg Neutrophils # Man Lymphocytes # (Manual) Monocytes # (Manual) Eosinophils # (Manual) Basophils # (Manual) PT INR Fibrinogen dRVVT Confirm Interp Factor V Activity POC ABG pH POC ABG pCO2 POC ABG pO2 ABG pO2 ABG HCO3 ABG Base Excess ABG Hemoglobin Oxyhemoglobin Sodium Potassium Chloride Carbon Dioxide BUN Creatinine Glucose POC Glucose 160 H 245 H 121 H Lactic Acid Calcium Ionized Calcium Phosphorus Magnesium Direct Bilirubin AST ALT Alkaline Phosphatase Lactate Dehydrogenase Troponin T C-Reactive Protein Total Protein Albumin Prealbumin Triglycerides Cholesterol LDL Cholesterol Direct HDL Cholesterol 25-OH Vitamin D Total PTH Intact Urine pH Urine WBC (Auto) Urine Creatinine Urine Total Protein Fluid Total Protein Vancomycin Trough Rheumatoid Factor Complement C4 Miscellaneous Test Crossmatch 09/20/16 09/20/16 09/20/16 04:10 04:10 04:10 WBC 17.0 H RBC 3.21 L Hgb 8.2 L Hct 25.5 L MCV MCH 26 L MCHC RDW 20.9 H Plt Count Lymph % (Auto) [place] % (Auto) Lymph # [place] # Baso # Seg Neutrophils % Seg Neuts % (Manual) Lymphocytes % (Manual) Monocytes % (Manual) Eosinophils % (Manual) Basophils % (Manual) Nucleated RBC % Seg Neutrophils # Seg Neutrophils # Man Lymphocytes # (Manual) Monocytes # (Manual) Eosinophils # (Manual) Basophils # (Manual) PT INR Fibrinogen dRVVT Confirm Interp Factor V Activity POC ABG pH POC ABG pCO2 POC ABG pO2 ABG pO2 ABG HCO3 ABG Base Excess ABG Hemoglobin Oxyhemoglobin Sodium Potassium Chloride 111.0 H Carbon Dioxide 16 L BUN 129 H Creatinine 3.7 H Glucose 115 H POC Glucose Lactic Acid Calcium 8.2 L Ionized Calcium Phosphorus Magnesium Direct Bilirubin AST ALT Alkaline Phosphatase Lactate Dehydrogenase Troponin T C-Reactive Protein Total Protein Albumin Prealbumin Triglycerides 243 H Cholesterol LDL Cholesterol Direct HDL Cholesterol 25-OH Vitamin D Total PTH Intact Urine pH Urine WBC (Auto) Urine Creatinine Urine Total Protein Fluid Total Protein Vancomycin Trough Rheumatoid Factor Complement C4 Miscellaneous Test Crossmatch 09/20/16 09/20/16 09/20/16 05:40 11:52 16:50 WBC RBC Hgb Hct MCV MCH MCHC RDW Plt Count Lymph % (Auto) [place] % (Auto) Lymph # [place] # Baso # Seg Neutrophils % Seg Neuts % (Manual) Lymphocytes % (Manual) Monocytes % (Manual) Eosinophils % (Manual) Basophils % (Manual) Nucleated RBC % Seg Neutrophils # Seg Neutrophils # Man Lymphocytes # (Manual) Monocytes # (Manual) Eosinophils # (Manual) Basophils # (Manual) PT INR Fibrinogen dRVVT Confirm Interp Factor V Activity POC ABG pH POC ABG pCO2 POC ABG pO2 ABG pO2 ABG HCO3 ABG Base Excess ABG Hemoglobin Oxyhemoglobin Sodium Potassium Chloride Carbon Dioxide BUN Creatinine Glucose POC Glucose 131 H 183 H 236 H Lactic Acid Calcium Ionized Calcium Phosphorus Magnesium Direct Bilirubin AST ALT Alkaline Phosphatase Lactate Dehydrogenase Troponin T C-Reactive Protein Total Protein Albumin Prealbumin Triglycerides Cholesterol LDL Cholesterol Direct HDL Cholesterol 25-OH Vitamin D Total PTH Intact Urine pH Urine WBC (Auto) Urine Creatinine Urine Total Protein Fluid Total Protein Vancomycin Trough Rheumatoid Factor Complement C4 Miscellaneous Test Crossmatch 09/20/16 09/21/16 09/21/16 23:51 03:30 04:44 WBC RBC Hgb Hct MCV MCH MCHC RDW Plt Count Lymph % (Auto) [place] % (Auto) Lymph # [place] # Baso # Seg Neutrophils % Seg Neuts % (Manual) Lymphocytes % (Manual) Monocytes % (Manual) Eosinophils % (Manual) Basophils % (Manual) Nucleated RBC % Seg Neutrophils # Seg Neutrophils # Man Lymphocytes # (Manual) Monocytes # (Manual) Eosinophils # (Manual) Basophils # (Manual) PT INR Fibrinogen dRVVT Confirm Interp Factor V Activity POC ABG pH POC ABG pCO2 POC ABG pO2 ABG pO2 ABG HCO3 ABG Base Excess ABG Hemoglobin Oxyhemoglobin Sodium Potassium Chloride Carbon Dioxide BUN Creatinine Glucose POC Glucose 114 H 141 H Lactic Acid Calcium Ionized Calcium Phosphorus Magnesium 2.70 H Direct Bilirubin AST ALT Alkaline Phosphatase Lactate Dehydrogenase Troponin T C-Reactive Protein Total Protein Albumin Prealbumin Triglycerides Cholesterol LDL Cholesterol Direct HDL Cholesterol 25-OH Vitamin D Total PTH Intact Urine pH Urine WBC (Auto) Urine Creatinine Urine Total Protein Fluid Total Protein Vancomycin Trough Rheumatoid Factor Complement C4 Miscellaneous Test Crossmatch 09/21/16 09/21/16 09/21/16 07:45 07:45 10:01 WBC 13.8 H RBC 2.94 L Hgb 7.5 L Hct 23.5 L MCV MCH 26 L MCHC RDW 21.2 H Plt Count Lymph % (Auto) 6.9 L [place] % (Auto) 9.4 H Lymph # 0.9 L [place] # 1.3 H Baso # Seg Neutrophils % 83.2 H Seg Neuts % (Manual) Lymphocytes % (Manual) Monocytes % (Manual) Eosinophils % (Manual) Basophils % (Manual) Nucleated RBC % Seg Neutrophils # 11.5 H Seg Neutrophils # Man Lymphocytes # (Manual) Monocytes # (Manual) Eosinophils # (Manual) Basophils # (Manual) PT INR Fibrinogen dRVVT Confirm Interp Factor V Activity POC ABG pH 7.308 L POC ABG pCO2 31.9 L POC ABG pO2 148 H ABG pO2 ABG HCO3 ABG Base Excess ABG Hemoglobin Oxyhemoglobin Sodium 147 H Potassium Chloride 114.2 H Carbon Dioxide 15 L BUN 120 H Creatinine 3.9 H Glucose 156 H POC Glucose Lactic Acid Calcium 8.2 L Ionized Calcium Phosphorus Magnesium Direct Bilirubin AST ALT Alkaline Phosphatase Lactate Dehydrogenase Troponin T C-Reactive Protein Total Protein Albumin Prealbumin Triglycerides Cholesterol LDL Cholesterol Direct HDL Cholesterol 25-OH Vitamin D Total PTH Intact Urine pH Urine WBC (Auto) Urine Creatinine Urine Total Protein Fluid Total Protein Vancomycin Trough Rheumatoid Factor Complement C4 Miscellaneous Test Crossmatch 09/21/16 09/21/16 09/21/16 12:00 12:03 13:00 WBC RBC Hgb Hct MCV MCH MCHC RDW Plt Count Lymph % (Auto) [place] % (Auto) Lymph # [place] # Baso # Seg Neutrophils % Seg Neuts % (Manual) Lymphocytes % (Manual) Monocytes % (Manual) Eosinophils % (Manual) Basophils % (Manual) Nucleated RBC % Seg Neutrophils # Seg Neutrophils # Man Lymphocytes # (Manual) Monocytes # (Manual) Eosinophils # (Manual) Basophils # (Manual) PT INR Fibrinogen dRVVT Confirm Interp Factor V Activity POC ABG pH POC ABG pCO2 POC ABG pO2 ABG pO2 ABG HCO3 ABG Base Excess ABG Hemoglobin Oxyhemoglobin Sodium Potassium Chloride Carbon Dioxide BUN Creatinine Glucose POC Glucose 163 H Lactic Acid Calcium Ionized Calcium Phosphorus Magnesium Direct Bilirubin AST ALT Alkaline Phosphatase Lactate Dehydrogenase Troponin T C-Reactive Protein Total Protein Albumin Prealbumin Triglycerides Cholesterol LDL Cholesterol Direct HDL Cholesterol 25-OH Vitamin D Total PTH Intact Urine pH Urine WBC (Auto) Urine Creatinine 54.8 H Urine Total Protein Fluid Total Protein Vancomycin Trough 2.3 L Rheumatoid Factor Complement C4 Miscellaneous Test Crossmatch 09/21/16 09/21/16 09/22/16 16:51 23:17 06:27 WBC RBC Hgb Hct MCV MCH MCHC RDW Plt Count Lymph % (Auto) [place] % (Auto) Lymph # [place] # Baso # Seg Neutrophils % Seg Neuts % (Manual) Lymphocytes % (Manual) Monocytes % (Manual) Eosinophils % (Manual) Basophils % (Manual) Nucleated RBC % Seg Neutrophils # Seg Neutrophils # Man Lymphocytes # (Manual) Monocytes # (Manual) Eosinophils # (Manual) Basophils # (Manual) PT INR Fibrinogen dRVVT Confirm Interp Factor V Activity POC ABG pH POC ABG pCO2 POC ABG pO2 ABG pO2 ABG HCO3 ABG Base Excess ABG Hemoglobin Oxyhemoglobin Sodium Potassium Chloride Carbon Dioxide BUN Creatinine Glucose POC Glucose 206 H 114 H 115 H Lactic Acid Calcium Ionized Calcium Phosphorus Magnesium Direct Bilirubin AST ALT Alkaline Phosphatase Lactate Dehydrogenase Troponin T C-Reactive Protein Total Protein Albumin Prealbumin Triglycerides Cholesterol LDL Cholesterol Direct HDL Cholesterol 25-OH Vitamin D Total PTH Intact Urine pH Urine WBC (Auto) Urine Creatinine Urine Total Protein Fluid Total Protein Vancomycin Trough Rheumatoid Factor Complement C4 Miscellaneous Test Crossmatch 09/22/16 09/22/16 09/22/16 07:50 07:50 12:00 WBC 17.8 H RBC 3.04 L Hgb 8.0 L Hct 24.7 L MCV MCH 26 L MCHC RDW 21.6 H Plt Count Lymph % (Auto) [place] % (Auto) Lymph # [place] # Baso # Seg Neutrophils % Seg Neuts % (Manual) Lymphocytes % (Manual) Monocytes % (Manual) Eosinophils % (Manual) Basophils % (Manual) Nucleated RBC % Seg Neutrophils # Seg Neutrophils # Man Lymphocytes # (Manual) Monocytes # (Manual) Eosinophils # (Manual) Basophils # (Manual) PT INR Fibrinogen dRVVT Confirm Interp Factor V Activity POC ABG pH POC ABG pCO2 POC ABG pO2 ABG pO2 ABG HCO3 ABG Base Excess ABG Hemoglobin Oxyhemoglobin Sodium 150 H Potassium Chloride 118.2 H Carbon Dioxide 14 L BUN 111 H Creatinine 3.7 H Glucose 157 H POC Glucose 183 H Lactic Acid Calcium Ionized Calcium Phosphorus Magnesium Direct Bilirubin AST ALT Alkaline Phosphatase Lactate Dehydrogenase Troponin T C-Reactive Protein Total Protein Albumin Prealbumin Triglycerides Cholesterol LDL Cholesterol Direct HDL Cholesterol 25-OH Vitamin D Total PTH Intact Urine pH Urine WBC (Auto) Urine Creatinine Urine Total Protein Fluid Total Protein Vancomycin Trough Rheumatoid Factor Complement C4 Miscellaneous Test Crossmatch 09/22/16 09/22/16 09/23/16 17:29 23:10 05:00 WBC 19.2 H RBC 3.13 L Hgb 8.0 L Hct 25.2 L MCV MCH 26 L MCHC RDW 22.1 H Plt Count Lymph % (Auto) [place] % (Auto) Lymph # [place] # Baso # Seg Neutrophils % Seg Neuts % (Manual) 92.0 H Lymphocytes % (Manual) 3.0 L Monocytes % (Manual) Eosinophils % (Manual) Basophils % (Manual) Nucleated RBC % Seg Neutrophils # Seg Neutrophils # Man 17.7 H Lymphocytes # (Manual) 0.6 L Monocytes # (Manual) Eosinophils # (Manual) Basophils # (Manual) PT INR Fibrinogen dRVVT Confirm Interp Factor V Activity POC ABG pH POC ABG pCO2 POC ABG pO2 ABG pO2 ABG HCO3 ABG Base Excess ABG Hemoglobin Oxyhemoglobin Sodium Potassium Chloride Carbon Dioxide BUN Creatinine Glucose POC Glucose 197 H 169 H Lactic Acid Calcium Ionized Calcium Phosphorus Magnesium Direct Bilirubin AST ALT Alkaline Phosphatase Lactate Dehydrogenase Troponin T C-Reactive Protein Total Protein Albumin Prealbumin Triglycerides Cholesterol LDL Cholesterol Direct HDL Cholesterol 25-OH Vitamin D Total PTH Intact Urine pH Urine WBC (Auto) Urine Creatinine Urine Total Protein Fluid Total Protein Vancomycin Trough Rheumatoid Factor Complement C4 Miscellaneous Test Crossmatch 09/23/16 09/23/16 09/23/16 05:00 05:00 05:10 WBC RBC Hgb Hct MCV MCH MCHC RDW Plt Count Lymph % (Auto) [place] % (Auto) Lymph # [place] # Baso # Seg Neutrophils % Seg Neuts % (Manual) Lymphocytes % (Manual) Monocytes % (Manual) Eosinophils % (Manual) Basophils % (Manual) Nucleated RBC % Seg Neutrophils # Seg Neutrophils # Man Lymphocytes # (Manual) Monocytes # (Manual) Eosinophils # (Manual) Basophils # (Manual) PT INR Fibrinogen dRVVT Confirm Interp Factor V Activity POC ABG pH POC ABG pCO2 POC ABG pO2 ABG pO2 ABG HCO3 ABG Base Excess ABG Hemoglobin Oxyhemoglobin Sodium 147 H Potassium 3.2 L Chloride 115.7 H Carbon Dioxide 13 L BUN 111 H Creatinine 3.8 H Glucose 194 H POC Glucose 188 H Lactic Acid Calcium 7.3 L D Ionized Calcium Phosphorus Magnesium Direct Bilirubin AST ALT Alkaline Phosphatase Lactate Dehydrogenase Troponin T C-Reactive Protein 3.20 H Total Protein Albumin Prealbumin Triglycerides Cholesterol LDL Cholesterol Direct HDL Cholesterol 25-OH Vitamin D Total PTH Intact Urine pH Urine WBC (Auto) Urine Creatinine Urine Total Protein Fluid Total Protein Vancomycin Trough Rheumatoid Factor Complement C4 Miscellaneous Test Crossmatch 09/23/16 09/23/16 09/23/16 11:37 12:29 18:01 WBC RBC Hgb Hct MCV MCH MCHC RDW Plt Count Lymph % (Auto) [place] % (Auto) Lymph # [place] # Baso # Seg Neutrophils % Seg Neuts % (Manual) Lymphocytes % (Manual) Monocytes % (Manual) Eosinophils % (Manual) Basophils % (Manual) Nucleated RBC % Seg Neutrophils # Seg Neutrophils # Man Lymphocytes # (Manual) Monocytes # (Manual) Eosinophils # (Manual) Basophils # (Manual) PT INR Fibrinogen dRVVT Confirm Interp Factor V Activity POC ABG pH POC ABG pCO2 18.9 L POC ABG pO2 143 H ABG pO2 ABG HCO3 ABG Base Excess ABG Hemoglobin Oxyhemoglobin Sodium Potassium Chloride Carbon Dioxide BUN Creatinine Glucose POC Glucose 153 H 108 H Lactic Acid Calcium Ionized Calcium Phosphorus Magnesium Direct Bilirubin AST ALT Alkaline Phosphatase Lactate Dehydrogenase Troponin T C-Reactive Protein Total Protein Albumin Prealbumin Triglycerides Cholesterol LDL Cholesterol Direct HDL Cholesterol 25-OH Vitamin D Total PTH Intact Urine pH Urine WBC (Auto) Urine Creatinine Urine Total Protein Fluid Total Protein Vancomycin Trough Rheumatoid Factor Complement C4 Miscellaneous Test Crossmatch 09/23/16 09/23/16 09/24/16 21:19 23:43 05:16 WBC RBC Hgb Hct MCV MCH MCHC RDW Plt Count Lymph % (Auto) [place] % (Auto) Lymph # [place] # Baso # Seg Neutrophils % Seg Neuts % (Manual) Lymphocytes % (Manual) Monocytes % (Manual) Eosinophils % (Manual) Basophils % (Manual) Nucleated RBC % Seg Neutrophils # Seg Neutrophils # Man Lymphocytes # (Manual) Monocytes # (Manual) Eosinophils # (Manual) Basophils # (Manual) PT INR Fibrinogen dRVVT Confirm Interp Factor V Activity POC ABG pH POC ABG pCO2 17.3 L POC ABG pO2 112 H ABG pO2 ABG HCO3 ABG Base Excess ABG Hemoglobin Oxyhemoglobin Sodium Potassium Chloride Carbon Dioxide BUN Creatinine Glucose POC Glucose 143 H 164 H Lactic Acid Calcium Ionized Calcium Phosphorus Magnesium Direct Bilirubin AST ALT Alkaline Phosphatase Lactate Dehydrogenase Troponin T C-Reactive Protein Total Protein Albumin Prealbumin Triglycerides Cholesterol LDL Cholesterol Direct HDL Cholesterol 25-OH Vitamin D Total PTH Intact Urine pH Urine WBC (Auto) Urine Creatinine Urine Total Protein Fluid Total Protein Vancomycin Trough Rheumatoid Factor Complement C4 Miscellaneous Test Crossmatch 09/24/16 09/24/16 09/24/16 05:21 11:58 17:06 WBC RBC Hgb Hct MCV MCH MCHC RDW Plt Count Lymph % (Auto) [place] % (Auto) Lymph # [place] # Baso # Seg Neutrophils % Seg Neuts % (Manual) Lymphocytes % (Manual) Monocytes % (Manual) Eosinophils % (Manual) Basophils % (Manual) Nucleated RBC % Seg Neutrophils # Seg Neutrophils # Man Lymphocytes # (Manual) Monocytes # (Manual) Eosinophils # (Manual) Basophils # (Manual) PT INR Fibrinogen dRVVT Confirm Interp Factor V Activity POC ABG pH POC ABG pCO2 POC ABG pO2 ABG pO2 ABG HCO3 ABG Base Excess ABG Hemoglobin Oxyhemoglobin Sodium Potassium Chloride Carbon Dioxide 10 L BUN 103 H Creatinine 4.3 H Glucose 163 H POC Glucose 173 H 167 H Lactic Acid Calcium 6.5 L Ionized Calcium Phosphorus Magnesium Direct Bilirubin AST ALT Alkaline Phosphatase Lactate Dehydrogenase Troponin T C-Reactive Protein Total Protein Albumin Prealbumin Triglycerides Cholesterol LDL Cholesterol Direct HDL Cholesterol 25-OH Vitamin D Total PTH Intact Urine pH Urine WBC (Auto) Urine Creatinine Urine Total Protein Fluid Total Protein Vancomycin Trough Rheumatoid Factor Complement C4 Miscellaneous Test Crossmatch 09/24/16 09/24/16 09/24/16 20:15 21:02 23:48 WBC RBC Hgb Hct MCV MCH MCHC RDW Plt Count Lymph % (Auto) [place] % (Auto) Lymph # [place] # Baso # Seg Neutrophils % Seg Neuts % (Manual) Lymphocytes % (Manual) Monocytes % (Manual) Eosinophils % (Manual) Basophils % (Manual) Nucleated RBC % Seg Neutrophils # Seg Neutrophils # Man Lymphocytes # (Manual) Monocytes # (Manual) Eosinophils # (Manual) Basophils # (Manual) PT INR Fibrinogen dRVVT Confirm Interp Factor V Activity POC ABG pH 7.288 L POC ABG pCO2 30.2 L 21.5 L POC ABG pO2 32 L 39 L ABG pO2 ABG HCO3 ABG Base Excess ABG Hemoglobin Oxyhemoglobin Sodium Potassium Chloride Carbon Dioxide BUN Creatinine Glucose POC Glucose 109 H Lactic Acid Calcium Ionized Calcium Phosphorus Magnesium Direct Bilirubin AST ALT Alkaline Phosphatase Lactate Dehydrogenase Troponin T C-Reactive Protein Total Protein Albumin Prealbumin Triglycerides Cholesterol LDL Cholesterol Direct HDL Cholesterol 25-OH Vitamin D Total PTH Intact Urine pH Urine WBC (Auto) Urine Creatinine Urine Total Protein Fluid Total Protein Vancomycin Trough Rheumatoid Factor Complement C4 Miscellaneous Test Crossmatch 09/25/16 09/25/16 09/25/16 04:20 04:20 04:20 WBC RBC 2.58 L Hgb 7.0 L Hct 21.0 L MCV MCH 27 L MCHC RDW 23.8 H Plt Count Lymph % (Auto) [place] % (Auto) Lymph # [place] # Baso # Seg Neutrophils % Seg Neuts % (Manual) Lymphocytes % (Manual) 12.0 L Monocytes % (Manual) Eosinophils % (Manual) 7.0 H Basophils % (Manual) 2.0 H Nucleated RBC % Seg Neutrophils # Seg Neutrophils # Man Lymphocytes # (Manual) 0.9 L Monocytes # (Manual) Eosinophils # (Manual) 0.5 H Basophils # (Manual) PT INR Fibrinogen dRVVT Confirm Interp Factor V Activity POC ABG pH POC ABG pCO2 POC ABG pO2 ABG pO2 ABG HCO3 ABG Base Excess ABG Hemoglobin Oxyhemoglobin Sodium Potassium Chloride Carbon Dioxide 15 L BUN 72 H Creatinine 3.8 H Glucose POC Glucose Lactic Acid Calcium 6.0 L Ionized Calcium Phosphorus 4.60 H Magnesium 1.60 L Direct Bilirubin AST ALT Alkaline Phosphatase Lactate Dehydrogenase Troponin T C-Reactive Protein Total Protein Albumin Prealbumin Triglycerides Cholesterol LDL Cholesterol Direct HDL Cholesterol 25-OH Vitamin D Total PTH Intact Urine pH Urine WBC (Auto) Urine Creatinine Urine Total Protein Fluid Total Protein Vancomycin Trough Rheumatoid Factor Complement C4 Miscellaneous Test Crossmatch 09/25/16 09/25/16 09/25/16 04:57 08:02 10:30 WBC RBC Hgb Hct MCV MCH MCHC RDW Plt Count Lymph % (Auto) [place] % (Auto) Lymph # [place] # Baso # Seg Neutrophils % Seg Neuts % (Manual) Lymphocytes % (Manual) Monocytes % (Manual) Eosinophils % (Manual) Basophils % (Manual) Nucleated RBC % Seg Neutrophils # Seg Neutrophils # Man Lymphocytes # (Manual) Monocytes # (Manual) Eosinophils # (Manual) Basophils # (Manual) PT INR Fibrinogen dRVVT Confirm Interp Factor V Activity POC ABG pH POC ABG pCO2 24.7 L POC ABG pO2 152 H ABG pO2 ABG HCO3 ABG Base Excess ABG Hemoglobin Oxyhemoglobin Sodium Potassium Chloride Carbon Dioxide BUN Creatinine Glucose POC Glucose 113 H Lactic Acid Calcium Ionized Calcium Phosphorus Magnesium Direct Bilirubin AST ALT Alkaline Phosphatase Lactate Dehydrogenase Troponin T C-Reactive Protein Total Protein Albumin Prealbumin Triglycerides Cholesterol LDL Cholesterol Direct HDL Cholesterol 25-OH Vitamin D Total PTH Intact Urine pH Urine WBC (Auto) Urine Creatinine Urine Total Protein Fluid Total Protein Vancomycin Trough Rheumatoid Factor Complement C4 Miscellaneous Test Crossmatch See Detail 09/25/16 09/25/16 09/25/16 12:05 17:44 23:47 WBC RBC Hgb Hct MCV MCH MCHC RDW Plt Count Lymph % (Auto) [place] % (Auto) Lymph # [place] # Baso # Seg Neutrophils % Seg Neuts % (Manual) Lymphocytes % (Manual) Monocytes % (Manual) Eosinophils % (Manual) Basophils % (Manual) Nucleated RBC % Seg Neutrophils # Seg Neutrophils # Man Lymphocytes # (Manual) Monocytes # (Manual) Eosinophils # (Manual) Basophils # (Manual) PT INR Fibrinogen dRVVT Confirm Interp Factor V Activity POC ABG pH POC ABG pCO2 POC ABG pO2 ABG pO2 ABG HCO3 ABG Base Excess ABG Hemoglobin Oxyhemoglobin Sodium Potassium Chloride Carbon Dioxide BUN Creatinine Glucose POC Glucose 117 H 119 H 150 H Lactic Acid Calcium Ionized Calcium Phosphorus Magnesium Direct Bilirubin AST ALT Alkaline Phosphatase Lactate Dehydrogenase Troponin T C-Reactive Protein Total Protein Albumin Prealbumin Triglycerides Cholesterol LDL Cholesterol Direct HDL Cholesterol 25-OH Vitamin D Total PTH Intact Urine pH Urine WBC (Auto) Urine Creatinine Urine Total Protein Fluid Total Protein Vancomycin Trough Rheumatoid Factor Complement C4 Miscellaneous Test Crossmatch 09/26/16 09/26/16 09/26/16 04:25 04:25 04:25 WBC RBC 2.65 L Hgb 7.4 L Hct 21.6 L MCV MCH MCHC RDW 22.5 H Plt Count Lymph % (Auto) [place] % (Auto) Lymph # [place] # Baso # Seg Neutrophils % Seg Neuts % (Manual) Lymphocytes % (Manual) 6.0 L Monocytes % (Manual) Eosinophils % (Manual) 11.0 H Basophils % (Manual) Nucleated RBC % Seg Neutrophils # Seg Neutrophils # Man Lymphocytes # (Manual) 0.4 L Monocytes # (Manual) Eosinophils # (Manual) 0.6 H Basophils # (Manual) PT INR Fibrinogen dRVVT Confirm Interp Factor V Activity POC ABG pH POC ABG pCO2 POC ABG pO2 ABG pO2 ABG HCO3 ABG Base Excess ABG Hemoglobin Oxyhemoglobin Sodium Potassium Chloride 97.0 L Carbon Dioxide 19 L BUN 43 H Creatinine 2.6 H Glucose 130 H POC Glucose Lactic Acid 4.40 H* Calcium 6.7 L Ionized Calcium Phosphorus Magnesium Direct Bilirubin AST ALT Alkaline Phosphatase Lactate Dehydrogenase Troponin T C-Reactive Protein Total Protein Albumin Prealbumin Triglycerides Cholesterol LDL Cholesterol Direct HDL Cholesterol 25-OH Vitamin D Total PTH Intact Urine pH Urine WBC (Auto) Urine Creatinine Urine Total Protein Fluid Total Protein Vancomycin Trough Rheumatoid Factor Complement C4 Miscellaneous Test Crossmatch 09/26/16 09/26/16 09/26/16 05:20 11:44 12:12 WBC RBC Hgb Hct MCV MCH MCHC RDW Plt Count Lymph % (Auto) [place] % (Auto) Lymph # [place] # Baso # Seg Neutrophils % Seg Neuts % (Manual) Lymphocytes % (Manual) Monocytes % (Manual) Eosinophils % (Manual) Basophils % (Manual) Nucleated RBC % Seg Neutrophils # Seg Neutrophils # Man Lymphocytes # (Manual) Monocytes # (Manual) Eosinophils # (Manual) Basophils # (Manual) PT INR Fibrinogen dRVVT Confirm Interp Factor V Activity POC ABG pH POC ABG pCO2 27.0 L POC ABG pO2 69 L ABG pO2 ABG HCO3 ABG Base Excess ABG Hemoglobin Oxyhemoglobin Sodium Potassium Chloride Carbon Dioxide BUN Creatinine Glucose POC Glucose 121 H 128 H Lactic Acid Calcium Ionized Calcium Phosphorus Magnesium Direct Bilirubin AST ALT Alkaline Phosphatase Lactate Dehydrogenase Troponin T C-Reactive Protein Total Protein Albumin Prealbumin Triglycerides Cholesterol LDL Cholesterol Direct HDL Cholesterol 25-OH Vitamin D Total PTH Intact Urine pH Urine WBC (Auto) Urine Creatinine Urine Total Protein Fluid Total Protein Vancomycin Trough Rheumatoid Factor Complement C4 Miscellaneous Test Crossmatch 09/26/16 09/26/16 09/27/16 18:31 23:40 08:20 WBC RBC Hgb Hct MCV MCH MCHC RDW Plt Count Lymph % (Auto) [place] % (Auto) Lymph # [place] # Baso # Seg Neutrophils % Seg Neuts % (Manual) Lymphocytes % (Manual) Monocytes % (Manual) Eosinophils % (Manual) Basophils % (Manual) Nucleated RBC % Seg Neutrophils # Seg Neutrophils # Man Lymphocytes # (Manual) Monocytes # (Manual) Eosinophils # (Manual) Basophils # (Manual) PT INR Fibrinogen dRVVT Confirm Interp Factor V Activity POC ABG pH POC ABG pCO2 POC ABG pO2 ABG pO2 ABG HCO3 ABG Base Excess ABG Hemoglobin Oxyhemoglobin Sodium Potassium Chloride Carbon Dioxide BUN Creatinine Glucose POC Glucose 120 H 133 H Lactic Acid 4.10 H* Calcium Ionized Calcium Phosphorus Magnesium Direct Bilirubin AST ALT Alkaline Phosphatase Lactate Dehydrogenase Troponin T C-Reactive Protein Total Protein Albumin Prealbumin Triglycerides Cholesterol LDL Cholesterol Direct HDL Cholesterol 25-OH Vitamin D Total PTH Intact Urine pH Urine WBC (Auto) Urine Creatinine Urine Total Protein Fluid Total Protein Vancomycin Trough Rheumatoid Factor Complement C4 Miscellaneous Test Crossmatch 09/27/16 09/27/16 09/27/16 11:23 15:00 18:15 WBC RBC Hgb Hct MCV MCH MCHC RDW Plt Count Lymph % (Auto) [place] % (Auto) Lymph # [place] # Baso # Seg Neutrophils % Seg Neuts % (Manual) Lymphocytes % (Manual) Monocytes % (Manual) Eosinophils % (Manual) Basophils % (Manual) Nucleated RBC % Seg Neutrophils # Seg Neutrophils # Man Lymphocytes # (Manual) Monocytes # (Manual) Eosinophils # (Manual) Basophils # (Manual) PT INR Fibrinogen dRVVT Confirm Interp Factor V Activity POC ABG pH 7.459 H POC ABG pCO2 27.1 L POC ABG pO2 140 H ABG pO2 ABG HCO3 ABG Base Excess ABG Hemoglobin Oxyhemoglobin Sodium Potassium Chloride Carbon Dioxide BUN Creatinine Glucose POC Glucose 114 H 127 H Lactic Acid Calcium Ionized Calcium Phosphorus Magnesium Direct Bilirubin AST ALT Alkaline Phosphatase Lactate Dehydrogenase Troponin T C-Reactive Protein Total Protein Albumin Prealbumin Triglycerides Cholesterol LDL Cholesterol Direct HDL Cholesterol 25-OH Vitamin D Total PTH Intact Urine pH Urine WBC (Auto) Urine Creatinine Urine Total Protein Fluid Total Protein Vancomycin Trough Rheumatoid Factor Complement C4 Miscellaneous Test Crossmatch 09/27/16 09/27/16 09/28/16 Unknown Unknown 03:45 WBC RBC 2.49 L Hgb 6.8 L Hct 20.7 L MCV MCH 27 L MCHC RDW 22.1 H Plt Count Lymph % (Auto) [place] % (Auto) Lymph # [place] # Baso # Seg Neutrophils % Seg Neuts % (Manual) 32.0 L Lymphocytes % (Manual) 12.0 L Monocytes % (Manual) 11.0 H Eosinophils % (Manual) 10.0 H Basophils % (Manual) Nucleated RBC % Seg Neutrophils # Seg Neutrophils # Man Lymphocytes # (Manual) 1.0 L Monocytes # (Manual) 0.9 H Eosinophils # (Manual) 0.8 H Basophils # (Manual) PT INR Fibrinogen dRVVT Confirm Interp Factor V Activity POC ABG pH POC ABG pCO2 POC ABG pO2 ABG pO2 ABG HCO3 ABG Base Excess ABG Hemoglobin Oxyhemoglobin Sodium 135 L 135 L Potassium 3.5 L Chloride 93.6 L 94.4 L Carbon Dioxide 17 L 21 L BUN 45 H 28 H Creatinine 3.3 H 2.5 H Glucose 106 H POC Glucose Lactic Acid Calcium 7.3 L 7.1 L Ionized Calcium Phosphorus Magnesium Direct Bilirubin AST ALT Alkaline Phosphatase Lactate Dehydrogenase Troponin T C-Reactive Protein Total Protein Albumin Prealbumin Triglycerides Cholesterol LDL Cholesterol Direct HDL Cholesterol 25-OH Vitamin D Total PTH Intact Urine pH Urine WBC (Auto) Urine Creatinine Urine Total Protein Fluid Total Protein Vancomycin Trough Rheumatoid Factor Complement C4 Miscellaneous Test Crossmatch 09/28/16 09/28/16 09/28/16 03:45 07:25 11:58 WBC 13.3 H RBC 3.01 L Hgb 8.4 L Hct 25.0 L MCV MCH MCHC RDW 20.5 H Plt Count 128 L Lymph % (Auto) [place] % (Auto) Lymph # [place] # Baso # Seg Neutrophils % Seg Neuts % (Manual) Lymphocytes % (Manual) 7.0 L Monocytes % (Manual) Eosinophils % (Manual) 6.0 H Basophils % (Manual) Nucleated RBC % Seg Neutrophils # Seg Neutrophils # Man Lymphocytes # (Manual) 0.9 L Monocytes # (Manual) Eosinophils # (Manual) 0.8 H Basophils # (Manual) PT INR Fibrinogen dRVVT Confirm Interp Factor V Activity POC ABG pH POC ABG pCO2 POC ABG pO2 ABG pO2 ABG HCO3 ABG Base Excess ABG Hemoglobin Oxyhemoglobin Sodium Potassium Chloride Carbon Dioxide BUN Creatinine Glucose POC Glucose 121 H Lactic Acid 4.50 H* Calcium Ionized Calcium Phosphorus Magnesium Direct Bilirubin AST ALT Alkaline Phosphatase Lactate Dehydrogenase Troponin T C-Reactive Protein Total Protein Albumin Prealbumin Triglycerides Cholesterol LDL Cholesterol Direct HDL Cholesterol 25-OH Vitamin D Total PTH Intact Urine pH Urine WBC (Auto) Urine Creatinine Urine Total Protein Fluid Total Protein Vancomycin Trough Rheumatoid Factor Complement C4 Miscellaneous Test Crossmatch 09/29/16 09/29/16 09/29/16 06:45 06:45 06:45 WBC 14.9 H RBC 2.74 L Hgb 7.6 L Hct 23.2 L MCV MCH MCHC RDW 20.5 H Plt Count 81 L Lymph % (Auto) [place] % (Auto) Lymph # [place] # Baso # Seg Neutrophils % Seg Neuts % (Manual) 81.0 H Lymphocytes % (Manual) 4.0 L Monocytes % (Manual) Eosinophils % (Manual) Basophils % (Manual) Nucleated RBC % Seg Neutrophils # Seg Neutrophils # Man 12.1 H Lymphocytes # (Manual) 0.6 L Monocytes # (Manual) Eosinophils # (Manual) Basophils # (Manual) PT INR Fibrinogen dRVVT Confirm Interp Factor V Activity POC ABG pH POC ABG pCO2 POC ABG pO2 ABG pO2 ABG HCO3 ABG Base Excess ABG Hemoglobin Oxyhemoglobin Sodium 133 L Potassium 3.4 L Chloride 92.5 L Carbon Dioxide 21 L BUN 33 H Creatinine 3.0 H Glucose POC Glucose Lactic Acid Calcium 6.6 L Ionized Calcium Phosphorus Magnesium 1.40 L Direct Bilirubin 0.9 H AST ALT Alkaline Phosphatase Lactate Dehydrogenase Troponin T C-Reactive Protein Total Protein 4.3 L Albumin 1.3 L Prealbumin Triglycerides Cholesterol LDL Cholesterol Direct HDL Cholesterol 25-OH Vitamin D Total PTH Intact Urine pH Urine WBC (Auto) Urine Creatinine Urine Total Protein Fluid Total Protein Vancomycin Trough Rheumatoid Factor Complement C4 Miscellaneous Test Crossmatch 09/29/16 09/29/16 09/30/16 17:52 20:12 00:07 WBC RBC Hgb Hct MCV MCH MCHC RDW Plt Count Lymph % (Auto) [place] % (Auto) Lymph # [place] # Baso # Seg Neutrophils % Seg Neuts % (Manual) Lymphocytes % (Manual) Monocytes % (Manual) Eosinophils % (Manual) Basophils % (Manual) Nucleated RBC % Seg Neutrophils # Seg Neutrophils # Man Lymphocytes # (Manual) Monocytes # (Manual) Eosinophils # (Manual) Basophils # (Manual) PT INR Fibrinogen dRVVT Confirm Interp Factor V Activity POC ABG pH POC ABG pCO2 POC ABG pO2 ABG pO2 ABG HCO3 ABG Base Excess ABG Hemoglobin Oxyhemoglobin Sodium Potassium Chloride Carbon Dioxide BUN Creatinine Glucose POC Glucose 50 L 51 L Lactic Acid Calcium Ionized Calcium Phosphorus Magnesium Direct Bilirubin AST ALT Alkaline Phosphatase Lactate Dehydrogenase Troponin T 0.204 H* C-Reactive Protein Total Protein Albumin Prealbumin Triglycerides Cholesterol 31 L LDL Cholesterol Direct 4 L HDL Cholesterol 3 L 25-OH Vitamin D Total PTH Intact Urine pH Urine WBC (Auto) Urine Creatinine Urine Total Protein Fluid Total Protein Vancomycin Trough Rheumatoid Factor Complement C4 Miscellaneous Test Crossmatch 09/30/16 09/30/16 09/30/16 01:30 05:15 06:10 WBC RBC Hgb Hct MCV MCH MCHC RDW Plt Count Lymph % (Auto) [place] % (Auto) Lymph # [place] # Baso # Seg Neutrophils % Seg Neuts % (Manual) Lymphocytes % (Manual) Monocytes % (Manual) Eosinophils % (Manual) Basophils % (Manual) Nucleated RBC % Seg Neutrophils # Seg Neutrophils # Man Lymphocytes # (Manual) Monocytes # (Manual) Eosinophils # (Manual) Basophils # (Manual) PT INR Fibrinogen dRVVT Confirm Interp Factor V Activity POC ABG pH POC ABG pCO2 POC ABG pO2 ABG pO2 ABG HCO3 ABG Base Excess ABG Hemoglobin Oxyhemoglobin Sodium 133 L Potassium 3.2 L Chloride 93.2 L Carbon Dioxide 19 L BUN 36 H Creatinine 3.2 H Glucose 104 H POC Glucose 167 H 146 H Lactic Acid Calcium 6.4 L Ionized Calcium Phosphorus Magnesium 1.60 L Direct Bilirubin AST ALT Alkaline Phosphatase Lactate Dehydrogenase Troponin T C-Reactive Protein Total Protein Albumin Prealbumin Triglycerides Cholesterol LDL Cholesterol Direct HDL Cholesterol 25-OH Vitamin D Total PTH Intact Urine pH Urine WBC (Auto) Urine Creatinine Urine Total Protein Fluid Total Protein Vancomycin Trough Rheumatoid Factor Complement C4 Miscellaneous Test Crossmatch 09/30/16 09/30/16 09/30/16 11:26 13:39 18:38 WBC RBC Hgb Hct MCV MCH MCHC RDW Plt Count Lymph % (Auto) [place] % (Auto) Lymph # [place] # Baso # Seg Neutrophils % Seg Neuts % (Manual) Lymphocytes % (Manual) Monocytes % (Manual) Eosinophils % (Manual) Basophils % (Manual) Nucleated RBC % Seg Neutrophils # Seg Neutrophils # Man Lymphocytes # (Manual) Monocytes # (Manual) Eosinophils # (Manual) Basophils # (Manual) PT INR Fibrinogen dRVVT Confirm Interp Factor V Activity POC ABG pH 7.479 H POC ABG pCO2 29.8 L POC ABG pO2 117 H ABG pO2 ABG HCO3 ABG Base Excess ABG Hemoglobin Oxyhemoglobin Sodium Potassium Chloride Carbon Dioxide BUN Creatinine Glucose POC Glucose 140 H 122 H Lactic Acid Calcium Ionized Calcium Phosphorus Magnesium Direct Bilirubin AST ALT Alkaline Phosphatase Lactate Dehydrogenase Troponin T C-Reactive Protein Total Protein Albumin Prealbumin Triglycerides Cholesterol LDL Cholesterol Direct HDL Cholesterol 25-OH Vitamin D Total PTH Intact Urine pH Urine WBC (Auto) Urine Creatinine Urine Total Protein Fluid Total Protein Vancomycin Trough Rheumatoid Factor Complement C4 Miscellaneous Test Crossmatch 10/01/16 10/01/16 10/01/16 06:00 06:00 12:37 WBC 12.6 H RBC 2.75 L Hgb 7.3 L Hct 23.3 L MCV MCH 27 L MCHC RDW 20.6 H Plt Count 72 L Lymph % (Auto) [place] % (Auto) Lymph # [place] # Baso # Seg Neutrophils % Seg Neuts % (Manual) 31.0 L Lymphocytes % (Manual) 8.0 L Monocytes % (Manual) Eosinophils % (Manual) Basophils % (Manual) Nucleated RBC % 3.0 H Seg Neutrophils # Seg Neutrophils # Man Lymphocytes # (Manual) 1.0 L Monocytes # (Manual) Eosinophils # (Manual) Basophils # (Manual) PT INR Fibrinogen dRVVT Confirm Interp Factor V Activity POC ABG pH POC ABG pCO2 POC ABG pO2 ABG pO2 ABG HCO3 ABG Base Excess ABG Hemoglobin Oxyhemoglobin Sodium 127 L Potassium Chloride 86.8 L Carbon Dioxide 20 L BUN 42 H Creatinine 3.5 H Glucose POC Glucose 65 L Lactic Acid Calcium 7.0 L Ionized Calcium Phosphorus Magnesium Direct Bilirubin AST ALT Alkaline Phosphatase Lactate Dehydrogenase Troponin T C-Reactive Protein Total Protein Albumin Prealbumin Triglycerides Cholesterol LDL Cholesterol Direct HDL Cholesterol 25-OH Vitamin D Total PTH Intact Urine pH Urine WBC (Auto) Urine Creatinine Urine Total Protein Fluid Total Protein Vancomycin Trough Rheumatoid Factor Complement C4 Miscellaneous Test Crossmatch 10/01/16 10/01/16 10/02/16 17:39 23:32 00:59 WBC RBC Hgb Hct MCV MCH MCHC RDW Plt Count Lymph % (Auto) [place] % (Auto) Lymph # [place] # Baso # Seg Neutrophils % Seg Neuts % (Manual) Lymphocytes % (Manual) Monocytes % (Manual) Eosinophils % (Manual) Basophils % (Manual) Nucleated RBC % Seg Neutrophils # Seg Neutrophils # Man Lymphocytes # (Manual) Monocytes # (Manual) Eosinophils # (Manual) Basophils # (Manual) PT INR Fibrinogen dRVVT Confirm Interp Factor V Activity POC ABG pH POC ABG pCO2 POC ABG pO2 ABG pO2 ABG HCO3 ABG Base Excess ABG Hemoglobin Oxyhemoglobin Sodium Potassium Chloride Carbon Dioxide BUN Creatinine Glucose POC Glucose 107 H 52 L 145 H Lactic Acid Calcium Ionized Calcium Phosphorus Magnesium Direct Bilirubin AST ALT Alkaline Phosphatase Lactate Dehydrogenase Troponin T C-Reactive Protein Total Protein Albumin Prealbumin Triglycerides Cholesterol LDL Cholesterol Direct HDL Cholesterol 25-OH Vitamin D Total PTH Intact Urine pH Urine WBC (Auto) Urine Creatinine Urine Total Protein Fluid Total Protein Vancomycin Trough Rheumatoid Factor Complement C4 Miscellaneous Test Crossmatch 10/02/16 10/02/16 10/02/16 10:30 10:50 10:50 WBC 14.7 H RBC 2.76 L Hgb 7.4 L Hct 23.6 L MCV MCH 27 L MCHC RDW 20.2 H Plt Count 79 L Lymph % (Auto) [place] % (Auto) Lymph # [place] # Baso # Seg Neutrophils % Seg Neuts % (Manual) 86.0 H Lymphocytes % (Manual) 6.0 L Monocytes % (Manual) Eosinophils % (Manual) Basophils % (Manual) Nucleated RBC % Seg Neutrophils # Seg Neutrophils # Man 12.6 H Lymphocytes # (Manual) 0.9 L Monocytes # (Manual) Eosinophils # (Manual) Basophils # (Manual) PT INR Fibrinogen dRVVT Confirm Interp Factor V Activity POC ABG pH 7.486 H POC ABG pCO2 30.1 L POC ABG pO2 108 H ABG pO2 ABG HCO3 ABG Base Excess ABG Hemoglobin Oxyhemoglobin Sodium 131 L Potassium 3.4 L Chloride 89.9 L Carbon Dioxide BUN 26 H Creatinine 2.6 H Glucose POC Glucose Lactic Acid Calcium 7.0 L Ionized Calcium Phosphorus Magnesium Direct Bilirubin AST ALT Alkaline Phosphatase Lactate Dehydrogenase Troponin T C-Reactive Protein Total Protein Albumin Prealbumin Triglycerides Cholesterol LDL Cholesterol Direct HDL Cholesterol 25-OH Vitamin D Total PTH Intact Urine pH Urine WBC (Auto) Urine Creatinine Urine Total Protein Fluid Total Protein Vancomycin Trough Rheumatoid Factor Complement C4 Miscellaneous Test Crossmatch 10/02/16 10/03/16 10/03/16 23:45 00:45 05:10 WBC 12.9 H RBC 2.77 L Hgb 7.6 L Hct 23.7 L MCV MCH 27 L MCHC RDW 19.7 H Plt Count 89 L Lymph % (Auto) [place] % (Auto) Lymph # [place] # Baso # Seg Neutrophils % Seg Neuts % (Manual) Lymphocytes % (Manual) 8.0 L Monocytes % (Manual) Eosinophils % (Manual) Basophils % (Manual) Nucleated RBC % Seg Neutrophils # 11.9 H Seg Neutrophils # Man Lymphocytes # (Manual) 1.0 L Monocytes # (Manual) Eosinophils # (Manual) Basophils # (Manual) PT INR Fibrinogen dRVVT Confirm Interp Factor V Activity POC ABG pH POC ABG pCO2 POC ABG pO2 ABG pO2 ABG HCO3 ABG Base Excess ABG Hemoglobin Oxyhemoglobin Sodium Potassium Chloride Carbon Dioxide BUN Creatinine Glucose POC Glucose 55 L 199 H Lactic Acid Calcium Ionized Calcium Phosphorus Magnesium Direct Bilirubin AST ALT Alkaline Phosphatase Lactate Dehydrogenase Troponin T C-Reactive Protein Total Protein Albumin Prealbumin Triglycerides Cholesterol LDL Cholesterol Direct HDL Cholesterol 25-OH Vitamin D Total PTH Intact Urine pH Urine WBC (Auto) Urine Creatinine Urine Total Protein Fluid Total Protein Vancomycin Trough Rheumatoid Factor Complement C4 Miscellaneous Test Crossmatch 10/03/16 10/03/16 10/03/16 05:10 12:14 13:18 WBC RBC Hgb Hct MCV MCH MCHC RDW Plt Count Lymph % (Auto) [place] % (Auto) Lymph # [place] # Baso # Seg Neutrophils % Seg Neuts % (Manual) Lymphocytes % (Manual) Monocytes % (Manual) Eosinophils % (Manual) Basophils % (Manual) Nucleated RBC % Seg Neutrophils # Seg Neutrophils # Man Lymphocytes # (Manual) Monocytes # (Manual) Eosinophils # (Manual) Basophils # (Manual) PT INR Fibrinogen dRVVT Confirm Interp Factor V Activity POC ABG pH POC ABG pCO2 POC ABG pO2 ABG pO2 ABG HCO3 ABG Base Excess ABG Hemoglobin Oxyhemoglobin Sodium 129 L Potassium 3.3 L Chloride 88.8 L Carbon Dioxide 20 L BUN 29 H Creatinine 2.8 H Glucose POC Glucose 68 L 127 H Lactic Acid Calcium 7.2 L Ionized Calcium Phosphorus Magnesium Direct Bilirubin AST ALT Alkaline Phosphatase Lactate Dehydrogenase Troponin T C-Reactive Protein Total Protein Albumin Prealbumin Triglycerides Cholesterol LDL Cholesterol Direct HDL Cholesterol 25-OH Vitamin D Total PTH Intact Urine pH Urine WBC (Auto) Urine Creatinine Urine Total Protein Fluid Total Protein Vancomycin Trough Rheumatoid Factor Complement C4 Miscellaneous Test Crossmatch 10/03/16 10/03/16 10/03/16 14:42 18:21 19:09 WBC RBC Hgb Hct MCV MCH MCHC RDW Plt Count Lymph % (Auto) [place] % (Auto) Lymph # [place] # Baso # Seg Neutrophils % Seg Neuts % (Manual) Lymphocytes % (Manual) Monocytes % (Manual) Eosinophils % (Manual) Basophils % (Manual) Nucleated RBC % Seg Neutrophils # Seg Neutrophils # Man Lymphocytes # (Manual) Monocytes # (Manual) Eosinophils # (Manual) Basophils # (Manual) PT INR Fibrinogen dRVVT Confirm Interp Factor V Activity POC ABG pH 7.499 H POC ABG pCO2 28.4 L POC ABG pO2 44 L ABG pO2 ABG HCO3 ABG Base Excess ABG Hemoglobin Oxyhemoglobin Sodium Potassium Chloride Carbon Dioxide BUN Creatinine Glucose POC Glucose 64 L 205 H Lactic Acid Calcium Ionized Calcium Phosphorus Magnesium Direct Bilirubin AST ALT Alkaline Phosphatase Lactate Dehydrogenase Troponin T C-Reactive Protein Total Protein Albumin Prealbumin Triglycerides Cholesterol LDL Cholesterol Direct HDL Cholesterol 25-OH Vitamin D Total PTH Intact Urine pH Urine WBC (Auto) Urine Creatinine Urine Total Protein Fluid Total Protein Vancomycin Trough Rheumatoid Factor Complement C4 Miscellaneous Test Crossmatch 10/03/16 10/04/16 10/04/16 23:33 04:18 06:30 WBC RBC 2.54 L Hgb 7.1 L Hct 21.7 L MCV MCH MCHC RDW 19.5 H Plt Count 76 L Lymph % (Auto) [place] % (Auto) Lymph # [place] # Baso # Seg Neutrophils % Seg Neuts % (Manual) 88.0 H Lymphocytes % (Manual) 6.0 L Monocytes % (Manual) Eosinophils % (Manual) Basophils % (Manual) Nucleated RBC % Seg Neutrophils # Seg Neutrophils # Man 8.8 H Lymphocytes # (Manual) 0.6 L Monocytes # (Manual) Eosinophils # (Manual) Basophils # (Manual) PT INR Fibrinogen dRVVT Confirm Interp Factor V Activity POC ABG pH 7.461 H POC ABG pCO2 33.6 L POC ABG pO2 211 H ABG pO2 ABG HCO3 ABG Base Excess ABG Hemoglobin Oxyhemoglobin Sodium Potassium Chloride Carbon Dioxide BUN Creatinine Glucose POC Glucose 136 H Lactic Acid Calcium Ionized Calcium Phosphorus Magnesium Direct Bilirubin AST ALT Alkaline Phosphatase Lactate Dehydrogenase Troponin T C-Reactive Protein Total Protein Albumin Prealbumin Triglycerides Cholesterol LDL Cholesterol Direct HDL Cholesterol 25-OH Vitamin D Total PTH Intact Urine pH Urine WBC (Auto) Urine Creatinine Urine Total Protein Fluid Total Protein Vancomycin Trough Rheumatoid Factor Complement C4 Miscellaneous Test Crossmatch 10/04/16 10/04/16 10/04/16 06:30 11:45 17:54 WBC RBC Hgb Hct MCV MCH MCHC RDW Plt Count Lymph % (Auto) [place] % (Auto) Lymph # [place] # Baso # Seg Neutrophils % Seg Neuts % (Manual) Lymphocytes % (Manual) Monocytes % (Manual) Eosinophils % (Manual) Basophils % (Manual) Nucleated RBC % Seg Neutrophils # Seg Neutrophils # Man Lymphocytes # (Manual) Monocytes # (Manual) Eosinophils # (Manual) Basophils # (Manual) PT INR Fibrinogen dRVVT Confirm Interp Factor V Activity POC ABG pH POC ABG pCO2 POC ABG pO2 ABG pO2 ABG HCO3 ABG Base Excess ABG Hemoglobin Oxyhemoglobin Sodium 128 L Potassium Chloride 87.4 L Carbon Dioxide 20 L BUN 34 H Creatinine 2.9 H Glucose 127 H POC Glucose 158 H 160 H Lactic Acid Calcium 7.4 L Ionized Calcium Phosphorus Magnesium Direct Bilirubin AST ALT Alkaline Phosphatase Lactate Dehydrogenase Troponin T C-Reactive Protein Total Protein Albumin Prealbumin Triglycerides Cholesterol LDL Cholesterol Direct HDL Cholesterol 25-OH Vitamin D Total PTH Intact Urine pH Urine WBC (Auto) Urine Creatinine Urine Total Protein Fluid Total Protein Vancomycin Trough Rheumatoid Factor Complement C4 Miscellaneous Test Crossmatch 10/04/16 10/05/16 10/05/16 23:25 04:30 05:00 WBC RBC 2.64 L Hgb 7.5 L Hct 22.6 L MCV MCH MCHC RDW 19.3 H Plt Count 80 L Lymph % (Auto) [place] % (Auto) Lymph # [place] # Baso # Seg Neutrophils % Seg Neuts % (Manual) Lymphocytes % (Manual) 12.0 L Monocytes % (Manual) Eosinophils % (Manual) Basophils % (Manual) Nucleated RBC % Seg Neutrophils # Seg Neutrophils # Man Lymphocytes # (Manual) Monocytes # (Manual) Eosinophils # (Manual) Basophils # (Manual) PT INR Fibrinogen dRVVT Confirm Interp Factor V Activity POC ABG pH 7.475 H POC ABG pCO2 33.3 L POC ABG pO2 140 H ABG pO2 ABG HCO3 ABG Base Excess ABG Hemoglobin Oxyhemoglobin Sodium Potassium Chloride Carbon Dioxide BUN Creatinine Glucose POC Glucose 141 H Lactic Acid Calcium Ionized Calcium Phosphorus Magnesium Direct Bilirubin AST ALT Alkaline Phosphatase Lactate Dehydrogenase Troponin T C-Reactive Protein Total Protein Albumin Prealbumin Triglycerides Cholesterol LDL Cholesterol Direct HDL Cholesterol 25-OH Vitamin D Total PTH Intact Urine pH Urine WBC (Auto) Urine Creatinine Urine Total Protein Fluid Total Protein Vancomycin Trough Rheumatoid Factor Complement C4 Miscellaneous Test Crossmatch 10/05/16 10/05/16 10/05/16 05:00 05:09 12:58 WBC RBC Hgb Hct MCV MCH MCHC RDW Plt Count Lymph % (Auto) [place] % (Auto) Lymph # [place] # Baso # Seg Neutrophils % Seg Neuts % (Manual) Lymphocytes % (Manual) Monocytes % (Manual) Eosinophils % (Manual) Basophils % (Manual) Nucleated RBC % Seg Neutrophils # Seg Neutrophils # Man Lymphocytes # (Manual) Monocytes # (Manual) Eosinophils # (Manual) Basophils # (Manual) PT INR Fibrinogen dRVVT Confirm Interp Factor V Activity POC ABG pH POC ABG pCO2 POC ABG pO2 ABG pO2 ABG HCO3 ABG Base Excess ABG Hemoglobin Oxyhemoglobin Sodium 131 L Potassium Chloride 94.0 L Carbon Dioxide 20 L BUN 22 H Creatinine 2.0 H Glucose 123 H POC Glucose 166 H 179 H Lactic Acid Calcium 7.7 L Ionized Calcium Phosphorus 2.20 L D Magnesium Direct Bilirubin AST ALT Alkaline Phosphatase Lactate Dehydrogenase Troponin T C-Reactive Protein Total Protein Albumin Prealbumin Triglycerides Cholesterol LDL Cholesterol Direct HDL Cholesterol 25-OH Vitamin D Total PTH Intact Urine pH Urine WBC (Auto) Urine Creatinine Urine Total Protein Fluid Total Protein Vancomycin Trough Rheumatoid Factor Complement C4 Miscellaneous Test Crossmatch 10/05/16 10/05/16 10/05/16 15:50 18:53 23:12 WBC RBC Hgb Hct MCV MCH MCHC RDW Plt Count Lymph % (Auto) [place] % (Auto) Lymph # [place] # Baso # Seg Neutrophils % Seg Neuts % (Manual) Lymphocytes % (Manual) Monocytes % (Manual) Eosinophils % (Manual) Basophils % (Manual) Nucleated RBC % Seg Neutrophils # Seg Neutrophils # Man Lymphocytes # (Manual) Monocytes # (Manual) Eosinophils # (Manual) Basophils # (Manual) PT INR Fibrinogen dRVVT Confirm Interp Factor V Activity POC ABG pH POC ABG pCO2 POC ABG pO2 ABG pO2 ABG HCO3 ABG Base Excess ABG Hemoglobin Oxyhemoglobin Sodium Potassium Chloride Carbon Dioxide BUN Creatinine Glucose POC Glucose 150 H 164 H Lactic Acid Calcium Ionized Calcium Phosphorus Magnesium Direct Bilirubin AST ALT Alkaline Phosphatase Lactate Dehydrogenase Troponin T C-Reactive Protein Total Protein Albumin Prealbumin Triglycerides Cholesterol LDL Cholesterol Direct HDL Cholesterol 25-OH Vitamin D Total PTH Intact Urine pH Urine WBC (Auto) Urine Creatinine Urine Total Protein Fluid Total Protein Vancomycin Trough Rheumatoid Factor Complement C4 Miscellaneous Test Crossmatch See Detail 10/06/16 10/06/16 10/06/16 03:50 03:50 04:53 WBC RBC 3.00 L Hgb 8.6 L Hct 25.8 L MCV MCH MCHC RDW 17.9 H Plt Count 65 L Lymph % (Auto) [place] % (Auto) Lymph # [place] # Baso # Seg Neutrophils % Seg Neuts % (Manual) 30.0 L Lymphocytes % (Manual) 5.0 L Monocytes % (Manual) Eosinophils % (Manual) Basophils % (Manual) Nucleated RBC % Seg Neutrophils # Seg Neutrophils # Man Lymphocytes # (Manual) 0.4 L Monocytes # (Manual) Eosinophils # (Manual) Basophils # (Manual) PT INR Fibrinogen dRVVT Confirm Interp Factor V Activity POC ABG pH 7.310 L POC ABG pCO2 49.0 H POC ABG pO2 ABG pO2 ABG HCO3 ABG Base Excess ABG Hemoglobin Oxyhemoglobin Sodium 133 L Potassium Chloride 95.9 L Carbon Dioxide BUN 26 H Creatinine 2.0 H Glucose 116 H POC Glucose Lactic Acid Calcium 7.8 L Ionized Calcium Phosphorus Magnesium Direct Bilirubin AST ALT Alkaline Phosphatase Lactate Dehydrogenase Troponin T C-Reactive Protein Total Protein Albumin Prealbumin Triglycerides Cholesterol LDL Cholesterol Direct HDL Cholesterol 25-OH Vitamin D Total PTH Intact Urine pH Urine WBC (Auto) Urine Creatinine Urine Total Protein Fluid Total Protein Vancomycin Trough Rheumatoid Factor Complement C4 Miscellaneous Test Crossmatch 10/06/16 10/06/16 10/06/16 05:23 11:52 18:34 WBC RBC Hgb Hct MCV MCH MCHC RDW Plt Count Lymph % (Auto) [place] % (Auto) Lymph # [place] # Baso # Seg Neutrophils % Seg Neuts % (Manual) Lymphocytes % (Manual) Monocytes % (Manual) Eosinophils % (Manual) Basophils % (Manual) Nucleated RBC % Seg Neutrophils # Seg Neutrophils # Man Lymphocytes # (Manual) Monocytes # (Manual) Eosinophils # (Manual) Basophils # (Manual) PT INR Fibrinogen dRVVT Confirm Interp Factor V Activity POC ABG pH POC ABG pCO2 POC ABG pO2 ABG pO2 ABG HCO3 ABG Base Excess ABG Hemoglobin Oxyhemoglobin Sodium Potassium Chloride Carbon Dioxide BUN Creatinine Glucose POC Glucose 126 H 116 H 129 H Lactic Acid Calcium Ionized Calcium Phosphorus Magnesium Direct Bilirubin AST ALT Alkaline Phosphatase Lactate Dehydrogenase Troponin T C-Reactive Protein Total Protein Albumin Prealbumin Triglycerides Cholesterol LDL Cholesterol Direct HDL Cholesterol 25-OH Vitamin D Total PTH Intact Urine pH Urine WBC (Auto) Urine Creatinine Urine Total Protein Fluid Total Protein Vancomycin Trough Rheumatoid Factor Complement C4 Miscellaneous Test Crossmatch 10/07/16 10/07/16 10/07/16 03:45 05:00 10:00 WBC 17.0 H RBC 2.68 L Hgb 7.3 L Hct 25.3 L MCV MCH 27 L MCHC 29 L RDW 19.6 H Plt Count 74 L Lymph % (Auto) [place] % (Auto) Lymph # [place] # Baso # Seg Neutrophils % Seg Neuts % (Manual) Lymphocytes % (Manual) 12.0 L Monocytes % (Manual) Eosinophils % (Manual) Basophils % (Manual) Nucleated RBC % 4.0 H Seg Neutrophils # Seg Neutrophils # Man 10.7 H Lymphocytes # (Manual) Monocytes # (Manual) Eosinophils # (Manual) Basophils # (Manual) PT INR Fibrinogen dRVVT Confirm Interp Factor V Activity POC ABG pH POC ABG pCO2 POC ABG pO2 ABG pO2 ABG HCO3 ABG Base Excess ABG Hemoglobin Oxyhemoglobin Sodium 130 L Potassium 3.2 L Chloride 93.9 L Carbon Dioxide 20 L BUN 44 H Creatinine 2.7 H Glucose 129 H POC Glucose Lactic Acid Calcium 7.4 L Ionized Calcium Phosphorus Magnesium Direct Bilirubin AST ALT 6 L Alkaline Phosphatase 195 H Lactate Dehydrogenase Troponin T C-Reactive Protein Total Protein 4.9 L Albumin 1.0 L Prealbumin Triglycerides Cholesterol LDL Cholesterol Direct HDL Cholesterol 25-OH Vitamin D Total PTH Intact Urine pH Urine WBC (Auto) Urine Creatinine Urine Total Protein Fluid Total Protein Vancomycin Trough Rheumatoid Factor Complement C4 Miscellaneous Test Flexitest 1 H Crossmatch 10/07/16 10/07/16 10/07/16 10:00 11:24 18:10 WBC RBC Hgb Hct MCV MCH MCHC RDW Plt Count Lymph % (Auto) [place] % (Auto) Lymph # [place] # Baso # Seg Neutrophils % Seg Neuts % (Manual) Lymphocytes % (Manual) Monocytes % (Manual) Eosinophils % (Manual) Basophils % (Manual) Nucleated RBC % Seg Neutrophils # Seg Neutrophils # Man Lymphocytes # (Manual) Monocytes # (Manual) Eosinophils # (Manual) Basophils # (Manual) PT INR Fibrinogen dRVVT Confirm Interp Factor V Activity POC ABG pH POC ABG pCO2 POC ABG pO2 ABG pO2 ABG HCO3 ABG Base Excess ABG Hemoglobin Oxyhemoglobin Sodium Potassium Chloride Carbon Dioxide BUN Creatinine Glucose POC Glucose 116 H 130 H Lactic Acid Calcium Ionized Calcium Phosphorus Magnesium Direct Bilirubin AST ALT Alkaline Phosphatase Lactate Dehydrogenase Troponin T C-Reactive Protein 19.40 H Total Protein Albumin Prealbumin Triglycerides Cholesterol LDL Cholesterol Direct HDL Cholesterol 25-OH Vitamin D Total PTH Intact Urine pH Urine WBC (Auto) Urine Creatinine Urine Total Protein Fluid Total Protein Vancomycin Trough Rheumatoid Factor Complement C4 Miscellaneous Test Crossmatch 10/07/16 10/08/16 10/08/16 18:30 00:00 04:00 WBC RBC Hgb Hct MCV MCH MCHC RDW Plt Count Lymph % (Auto) [place] % (Auto) Lymph # [place] # Baso # Seg Neutrophils % Seg Neuts % (Manual) Lymphocytes % (Manual) Monocytes % (Manual) Eosinophils % (Manual) Basophils % (Manual) Nucleated RBC % Seg Neutrophils # Seg Neutrophils # Man Lymphocytes # (Manual) Monocytes # (Manual) Eosinophils # (Manual) Basophils # (Manual) PT INR Fibrinogen dRVVT Confirm Interp Factor V Activity POC ABG pH POC ABG pCO2 POC ABG pO2 ABG pO2 ABG HCO3 ABG Base Excess ABG Hemoglobin Oxyhemoglobin Sodium 132 L Potassium 3.3 L Chloride 93.6 L Carbon Dioxide 17 L BUN 59 H Creatinine 2.7 H Glucose 121 H POC Glucose 122 H Lactic Acid Calcium 7.6 L Ionized Calcium Phosphorus Magnesium Direct Bilirubin AST ALT Alkaline Phosphatase Lactate Dehydrogenase Troponin T C-Reactive Protein Total Protein Albumin Prealbumin Triglycerides Cholesterol LDL Cholesterol Direct HDL Cholesterol 25-OH Vitamin D Total PTH Intact Urine pH Urine WBC (Auto) > 182.0 H Urine Creatinine Urine Total Protein Fluid Total Protein Vancomycin Trough Rheumatoid Factor Complement C4 Miscellaneous Test Crossmatch 10/08/16 10/08/16 10/08/16 04:30 05:30 11:51 WBC RBC 5.15 H Hgb 14.4 H D Hct 44.5 H D MCV MCH MCHC RDW 19.5 H Plt Count 56 L Lymph % (Auto) [place] % (Auto) Lymph # [place] # Baso # Seg Neutrophils % Seg Neuts % (Manual) 24.0 L Lymphocytes % (Manual) 8.0 L Monocytes % (Manual) Eosinophils % (Manual) Basophils % (Manual) Nucleated RBC % 9.0 H Seg Neutrophils # Seg Neutrophils # Man Lymphocytes # (Manual) 0.7 L Monocytes # (Manual) Eosinophils # (Manual) Basophils # (Manual) PT INR Fibrinogen dRVVT Confirm Interp Factor V Activity POC ABG pH POC ABG pCO2 POC ABG pO2 ABG pO2 ABG HCO3 ABG Base Excess ABG Hemoglobin Oxyhemoglobin Sodium Potassium Chloride Carbon Dioxide BUN Creatinine Glucose POC Glucose 125 H 150 H Lactic Acid Calcium Ionized Calcium Phosphorus Magnesium Direct Bilirubin AST ALT Alkaline Phosphatase Lactate Dehydrogenase Troponin T C-Reactive Protein Total Protein Albumin Prealbumin Triglycerides Cholesterol LDL Cholesterol Direct HDL Cholesterol 25-OH Vitamin D Total PTH Intact Urine pH Urine WBC (Auto) Urine Creatinine Urine Total Protein Fluid Total Protein Vancomycin Trough Rheumatoid Factor Complement C4 Miscellaneous Test Crossmatch 10/08/16 10/08/16 10/08/16 12:49 17:07 19:30 WBC RBC Hgb 7.1 L D Hct 22.4 L D MCV MCH MCHC RDW Plt Count Lymph % (Auto) [place] % (Auto) Lymph # [place] # Baso # Seg Neutrophils % Seg Neuts % (Manual) Lymphocytes % (Manual) Monocytes % (Manual) Eosinophils % (Manual) Basophils % (Manual) Nucleated RBC % Seg Neutrophils # Seg Neutrophils # Man Lymphocytes # (Manual) Monocytes # (Manual) Eosinophils # (Manual) Basophils # (Manual) PT INR Fibrinogen dRVVT Confirm Interp Factor V Activity POC ABG pH POC ABG pCO2 28.2 L POC ABG pO2 111 H ABG pO2 ABG HCO3 ABG Base Excess ABG Hemoglobin Oxyhemoglobin Sodium Potassium Chloride Carbon Dioxide BUN Creatinine Glucose POC Glucose 145 H Lactic Acid Calcium Ionized Calcium Phosphorus Magnesium Direct Bilirubin AST ALT Alkaline Phosphatase Lactate Dehydrogenase Troponin T C-Reactive Protein Total Protein Albumin Prealbumin Triglycerides Cholesterol LDL Cholesterol Direct HDL Cholesterol 25-OH Vitamin D Total PTH Intact Urine pH Urine WBC (Auto) Urine Creatinine Urine Total Protein Fluid Total Protein Vancomycin Trough Rheumatoid Factor Complement C4 Miscellaneous Test Crossmatch 10/08/16 10/09/16 10/09/16 19:30 03:45 03:45 WBC 12.6 H RBC 2.36 L Hgb 6.7 L Hct 21.1 L MCV MCH MCHC RDW 19.5 H Plt Count 75 L Lymph % (Auto) [place] % (Auto) Lymph # [place] # Baso # Seg Neutrophils % Seg Neuts % (Manual) Lymphocytes % (Manual) Monocytes % (Manual) 10.0 H Eosinophils % (Manual) Basophils % (Manual) Nucleated RBC % 3.0 H Seg Neutrophils # Seg Neutrophils # Man Lymphocytes # (Manual) Monocytes # (Manual) 1.3 H Eosinophils # (Manual) Basophils # (Manual) PT 18.0 H INR 1.41 H Fibrinogen dRVVT Confirm Interp Factor V Activity POC ABG pH POC ABG pCO2 POC ABG pO2 ABG pO2 ABG HCO3 ABG Base Excess ABG Hemoglobin Oxyhemoglobin Sodium 135 L Potassium Chloride Carbon Dioxide 17 L BUN 81 H Creatinine 3.2 H Glucose 109 H POC Glucose Lactic Acid Calcium 7.4 L Ionized Calcium Phosphorus 4.60 H D Magnesium Direct Bilirubin AST ALT Alkaline Phosphatase Lactate Dehydrogenase Troponin T C-Reactive Protein Total Protein Albumin Prealbumin Triglycerides Cholesterol LDL Cholesterol Direct HDL Cholesterol 25-OH Vitamin D Total PTH Intact Urine pH Urine WBC (Auto) Urine Creatinine Urine Total Protein Fluid Total Protein Vancomycin Trough Rheumatoid Factor Complement C4 Miscellaneous Test Crossmatch 10/09/16 10/09/16 10/09/16 03:45 05:14 07:20 WBC RBC Hgb Hct MCV MCH MCHC RDW Plt Count Lymph % (Auto) [place] % (Auto) Lymph # [place] # Baso # Seg Neutrophils % Seg Neuts % (Manual) Lymphocytes % (Manual) Monocytes % (Manual) Eosinophils % (Manual) Basophils % (Manual) Nucleated RBC % Seg Neutrophils # Seg Neutrophils # Man Lymphocytes # (Manual) Monocytes # (Manual) Eosinophils # (Manual) Basophils # (Manual) PT 19.0 H INR 1.51 H Fibrinogen dRVVT Confirm Interp Factor V Activity POC ABG pH POC ABG pCO2 POC ABG pO2 ABG pO2 ABG HCO3 ABG Base Excess ABG Hemoglobin Oxyhemoglobin Sodium Potassium Chloride Carbon Dioxide BUN Creatinine Glucose POC Glucose 151 H Lactic Acid Calcium Ionized Calcium Phosphorus Magnesium Direct Bilirubin AST ALT Alkaline Phosphatase Lactate Dehydrogenase Troponin T C-Reactive Protein Total Protein Albumin Prealbumin Triglycerides Cholesterol LDL Cholesterol Direct HDL Cholesterol 25-OH Vitamin D Total PTH Intact Urine pH Urine WBC (Auto) Urine Creatinine Urine Total Protein Fluid Total Protein Vancomycin Trough Rheumatoid Factor Complement C4 Miscellaneous Test Crossmatch See Detail 10/09/16 10/09/16 10/09/16 11:46 16:20 16:43 WBC RBC Hgb 7.2 L Hct 22.2 L MCV MCH MCHC RDW Plt Count Lymph % (Auto) [place] % (Auto) Lymph # [place] # Baso # Seg Neutrophils % Seg Neuts % (Manual) Lymphocytes % (Manual) Monocytes % (Manual) Eosinophils % (Manual) Basophils % (Manual) Nucleated RBC % Seg Neutrophils # Seg Neutrophils # Man Lymphocytes # (Manual) Monocytes # (Manual) Eosinophils # (Manual) Basophils # (Manual) PT INR Fibrinogen dRVVT Confirm Interp Factor V Activity POC ABG pH POC ABG pCO2 POC ABG pO2 ABG pO2 ABG HCO3 ABG Base Excess ABG Hemoglobin Oxyhemoglobin Sodium Potassium Chloride Carbon Dioxide BUN Creatinine Glucose POC Glucose 133 H 141 H Lactic Acid Calcium Ionized Calcium Phosphorus Magnesium Direct Bilirubin AST ALT Alkaline Phosphatase Lactate Dehydrogenase Troponin T C-Reactive Protein Total Protein Albumin Prealbumin Triglycerides Cholesterol LDL Cholesterol Direct HDL Cholesterol 25-OH Vitamin D Total PTH Intact Urine pH Urine WBC (Auto) Urine Creatinine Urine Total Protein Fluid Total Protein Vancomycin Trough Rheumatoid Factor Complement C4 Miscellaneous Test Crossmatch 10/10/16 10/10/16 10/10/16 05:00 05:00 11:19 WBC 18.5 H RBC 2.19 L Hgb 6.4 L Hct 19.6 L* MCV MCH MCHC RDW 19.3 H Plt Count 93 L Lymph % (Auto) [place] % (Auto) Lymph # [place] # Baso # Seg Neutrophils % Seg Neuts % (Manual) Lymphocytes % (Manual) 10.0 L Monocytes % (Manual) Eosinophils % (Manual) Basophils % (Manual) Nucleated RBC % 4.0 H Seg Neutrophils # Seg Neutrophils # Man 11.3 H Lymphocytes # (Manual) Monocytes # (Manual) Eosinophils # (Manual) Basophils # (Manual) PT INR Fibrinogen dRVVT Confirm Interp Factor V Activity POC ABG pH POC ABG pCO2 POC ABG pO2 ABG pO2 ABG HCO3 ABG Base Excess ABG Hemoglobin Oxyhemoglobin Sodium Potassium 5.7 H D Chloride Carbon Dioxide 16 L BUN 94 H Creatinine 3.1 H Glucose 131 H POC Glucose 153 H Lactic Acid Calcium 8.2 L Ionized Calcium Phosphorus 5.10 H Magnesium 2.40 H Direct Bilirubin 0.3 H AST ALT < 5 L Alkaline Phosphatase 319 H Lactate Dehydrogenase Troponin T C-Reactive Protein Total Protein 5.1 L Albumin 1.0 L Prealbumin Triglycerides Cholesterol LDL Cholesterol Direct HDL Cholesterol 25-OH Vitamin D Total PTH Intact Urine pH Urine WBC (Auto) Urine Creatinine Urine Total Protein Fluid Total Protein Vancomycin Trough Rheumatoid Factor Complement C4 Miscellaneous Test Crossmatch 10/10/16 10/10/16 10/11/16 17:50 23:30 04:15 WBC RBC Hgb Hct MCV MCH MCHC RDW Plt Count Lymph % (Auto) [place] % (Auto) Lymph # [place] # Baso # Seg Neutrophils % Seg Neuts % (Manual) Lymphocytes % (Manual) Monocytes % (Manual) Eosinophils % (Manual) Basophils % (Manual) Nucleated RBC % Seg Neutrophils # Seg Neutrophils # Man Lymphocytes # (Manual) Monocytes # (Manual) Eosinophils # (Manual) Basophils # (Manual) PT INR Fibrinogen dRVVT Confirm Interp Factor V Activity POC ABG pH POC ABG pCO2 POC ABG pO2 ABG pO2 ABG HCO3 ABG Base Excess ABG Hemoglobin Oxyhemoglobin Sodium Potassium Chloride 96.4 L Carbon Dioxide 21 L BUN 57 H Creatinine 2.1 H Glucose 151 H POC Glucose 146 H 141 H Lactic Acid Calcium 8.3 L Ionized Calcium Phosphorus Magnesium Direct Bilirubin AST ALT Alkaline Phosphatase Lactate Dehydrogenase Troponin T C-Reactive Protein Total Protein Albumin Prealbumin Triglycerides Cholesterol LDL Cholesterol Direct HDL Cholesterol 25-OH Vitamin D Total PTH Intact Urine pH Urine WBC (Auto) Urine Creatinine Urine Total Protein Fluid Total Protein Vancomycin Trough Rheumatoid Factor Complement C4 Miscellaneous Test Crossmatch 10/11/16 10/11/16 10/11/16 04:15 04:15 05:30 WBC 28.3 H RBC 3.12 L Hgb 9.3 L Hct 28.7 L D MCV MCH MCHC RDW 17.7 H Plt Count 128 L Lymph % (Auto) [place] % (Auto) Lymph # [place] # Baso # Seg Neutrophils % Seg Neuts % (Manual) Lymphocytes % (Manual) Monocytes % (Manual) Eosinophils % (Manual) Basophils % (Manual) Nucleated RBC % Seg Neutrophils # Seg Neutrophils # Man Lymphocytes # (Manual) Monocytes # (Manual) Eosinophils # (Manual) Basophils # (Manual) PT INR Fibrinogen dRVVT Confirm Interp Factor V Activity POC ABG pH POC ABG pCO2 POC ABG pO2 ABG pO2 ABG HCO3 ABG Base Excess ABG Hemoglobin Oxyhemoglobin Sodium Potassium Chloride Carbon Dioxide BUN Creatinine Glucose POC Glucose 167 H Lactic Acid Calcium Ionized Calcium Phosphorus Magnesium Direct Bilirubin AST ALT Alkaline Phosphatase Lactate Dehydrogenase Troponin T C-Reactive Protein 15.80 H Total Protein Albumin Prealbumin Triglycerides Cholesterol LDL Cholesterol Direct HDL Cholesterol 25-OH Vitamin D Total PTH Intact Urine pH Urine WBC (Auto) Urine Creatinine Urine Total Protein Fluid Total Protein Vancomycin Trough Rheumatoid Factor Complement C4 Miscellaneous Test Crossmatch 10/11/16 10/11/16 10/11/16 11:40 15:49 23:57 WBC RBC Hgb Hct MCV MCH MCHC RDW Plt Count Lymph % (Auto) [place] % (Auto) Lymph # [place] # Baso # Seg Neutrophils % Seg Neuts % (Manual) Lymphocytes % (Manual) Monocytes % (Manual) Eosinophils % (Manual) Basophils % (Manual) Nucleated RBC % Seg Neutrophils # Seg Neutrophils # Man Lymphocytes # (Manual) Monocytes # (Manual) Eosinophils # (Manual) Basophils # (Manual) PT INR Fibrinogen dRVVT Confirm Interp Factor V Activity POC ABG pH POC ABG pCO2 POC ABG pO2 ABG pO2 ABG HCO3 ABG Base Excess ABG Hemoglobin Oxyhemoglobin Sodium Potassium Chloride Carbon Dioxide BUN Creatinine Glucose POC Glucose 139 H 168 H 161 H Lactic Acid Calcium Ionized Calcium Phosphorus Magnesium Direct Bilirubin AST ALT Alkaline Phosphatase Lactate Dehydrogenase Troponin T C-Reactive Protein Total Protein Albumin Prealbumin Triglycerides Cholesterol LDL Cholesterol Direct HDL Cholesterol 25-OH Vitamin D Total PTH Intact Urine pH Urine WBC (Auto) Urine Creatinine Urine Total Protein Fluid Total Protein Vancomycin Trough Rheumatoid Factor Complement C4 Miscellaneous Test Crossmatch 10/12/16 10/12/16 10/12/16 04:40 04:40 05:44 WBC 22.5 H RBC 2.88 L Hgb 8.8 L Hct 26.8 L MCV MCH MCHC RDW 17.8 H Plt Count Lymph % (Auto) [place] % (Auto) Lymph # [place] # Baso # Seg Neutrophils % Seg Neuts % (Manual) Lymphocytes % (Manual) Monocytes % (Manual) Eosinophils % (Manual) Basophils % (Manual) Nucleated RBC % Seg Neutrophils # Seg Neutrophils # Man Lymphocytes # (Manual) Monocytes # (Manual) Eosinophils # (Manual) Basophils # (Manual) PT INR Fibrinogen dRVVT Confirm Interp Factor V Activity POC ABG pH POC ABG pCO2 POC ABG pO2 ABG pO2 ABG HCO3 ABG Base Excess ABG Hemoglobin Oxyhemoglobin Sodium 134 L Potassium Chloride 93.0 L Carbon Dioxide BUN 74 H Creatinine 2.5 H Glucose 137 H POC Glucose 158 H Lactic Acid Calcium 8.2 L Ionized Calcium Phosphorus Magnesium Direct Bilirubin AST ALT Alkaline Phosphatase Lactate Dehydrogenase Troponin T C-Reactive Protein Total Protein Albumin Prealbumin Triglycerides Cholesterol LDL Cholesterol Direct HDL Cholesterol 25-OH Vitamin D Total PTH Intact Urine pH Urine WBC (Auto) Urine Creatinine Urine Total Protein Fluid Total Protein Vancomycin Trough Rheumatoid Factor Complement C4 Miscellaneous Test Crossmatch 10/12/16 10/12/16 10/12/16 12:27 18:18 23:46 WBC RBC Hgb Hct MCV MCH MCHC RDW Plt Count Lymph % (Auto) [place] % (Auto) Lymph # [place] # Baso # Seg Neutrophils % Seg Neuts % (Manual) Lymphocytes % (Manual) Monocytes % (Manual) Eosinophils % (Manual) Basophils % (Manual) Nucleated RBC % Seg Neutrophils # Seg Neutrophils # Man Lymphocytes # (Manual) Monocytes # (Manual) Eosinophils # (Manual) Basophils # (Manual) PT INR Fibrinogen dRVVT Confirm Interp Factor V Activity POC ABG pH POC ABG pCO2 POC ABG pO2 ABG pO2 ABG HCO3 ABG Base Excess ABG Hemoglobin Oxyhemoglobin Sodium Potassium Chloride Carbon Dioxide BUN Creatinine Glucose POC Glucose 153 H 140 H 150 H Lactic Acid Calcium Ionized Calcium Phosphorus Magnesium Direct Bilirubin AST ALT Alkaline Phosphatase Lactate Dehydrogenase Troponin T C-Reactive Protein Total Protein Albumin Prealbumin Triglycerides Cholesterol LDL Cholesterol Direct HDL Cholesterol 25-OH Vitamin D Total PTH Intact Urine pH Urine WBC (Auto) Urine Creatinine Urine Total Protein Fluid Total Protein Vancomycin Trough Rheumatoid Factor Complement C4 Miscellaneous Test Crossmatch 10/13/16 10/13/16 10/13/16 06:22 09:20 12:29 WBC RBC Hgb Hct MCV MCH MCHC RDW Plt Count Lymph % (Auto) [place] % (Auto) Lymph # [place] # Baso # Seg Neutrophils % Seg Neuts % (Manual) Lymphocytes % (Manual) Monocytes % (Manual) Eosinophils % (Manual) Basophils % (Manual) Nucleated RBC % Seg Neutrophils # Seg Neutrophils # Man Lymphocytes # (Manual) Monocytes # (Manual) Eosinophils # (Manual) Basophils # (Manual) PT INR Fibrinogen dRVVT Confirm Interp Factor V Activity POC ABG pH POC ABG pCO2 POC ABG pO2 ABG pO2 ABG HCO3 ABG Base Excess ABG Hemoglobin Oxyhemoglobin Sodium Potassium Chloride Carbon Dioxide BUN Creatinine Glucose POC Glucose 165 H 193 H Lactic Acid Calcium Ionized Calcium Phosphorus Magnesium Direct Bilirubin AST ALT Alkaline Phosphatase Lactate Dehydrogenase Troponin T C-Reactive Protein Total Protein Albumin Prealbumin Triglycerides Cholesterol LDL Cholesterol Direct HDL Cholesterol 25-OH Vitamin D Total PTH Intact Urine pH Urine WBC (Auto) Urine Creatinine Urine Total Protein Fluid Total Protein Vancomycin Trough Rheumatoid Factor Complement C4 Miscellaneous Test Flexitest 1 H Crossmatch 10/13/16 10/13/16 10/13/16 18:09 Unknown Unknown WBC 23.4 H RBC 2.83 L Hgb 8.7 L Hct 26.1 L MCV MCH MCHC RDW 18.1 H Plt Count Lymph % (Auto) [place] % (Auto) Lymph # [place] # Baso # Seg Neutrophils % Seg Neuts % (Manual) Lymphocytes % (Manual) Monocytes % (Manual) Eosinophils % (Manual) Basophils % (Manual) Nucleated RBC % Seg Neutrophils # Seg Neutrophils # Man Lymphocytes # (Manual) Monocytes # (Manual) Eosinophils # (Manual) Basophils # (Manual) PT INR Fibrinogen dRVVT Confirm Interp Factor V Activity POC ABG pH POC ABG pCO2 POC ABG pO2 ABG pO2 ABG HCO3 ABG Base Excess ABG Hemoglobin Oxyhemoglobin Sodium Potassium Chloride 95.8 L Carbon Dioxide BUN 82 H Creatinine 2.6 H Glucose 152 H POC Glucose 166 H Lactic Acid Calcium Ionized Calcium Phosphorus Magnesium Direct Bilirubin AST ALT Alkaline Phosphatase Lactate Dehydrogenase Troponin T C-Reactive Protein Total Protein Albumin Prealbumin Triglycerides Cholesterol LDL Cholesterol Direct HDL Cholesterol 25-OH Vitamin D Total PTH Intact Urine pH Urine WBC (Auto) Urine Creatinine Urine Total Protein Fluid Total Protein Vancomycin Trough Rheumatoid Factor Complement C4 Miscellaneous Test Crossmatch 10/14/16 10/14/16 10/14/16 05:38 06:35 08:10 WBC 20.7 H RBC 2.81 L Hgb 8.4 L Hct 27.2 L MCV MCH MCHC RDW 19.4 H Plt Count Lymph % (Auto) [place] % (Auto) Lymph # [place] # Baso # Seg Neutrophils % Seg Neuts % (Manual) Lymphocytes % (Manual) Monocytes % (Manual) Eosinophils % (Manual) Basophils % (Manual) Nucleated RBC % Seg Neutrophils # Seg Neutrophils # Man Lymphocytes # (Manual) Monocytes # (Manual) Eosinophils # (Manual) Basophils # (Manual) PT INR Fibrinogen dRVVT Confirm Interp Factor V Activity POC ABG pH POC ABG pCO2 POC ABG pO2 ABG pO2 ABG HCO3 ABG Base Excess ABG Hemoglobin Oxyhemoglobin Sodium Potassium Chloride Carbon Dioxide BUN 58 H Creatinine 1.9 H Glucose 169 H POC Glucose 195 H Lactic Acid Calcium Ionized Calcium Phosphorus Magnesium Direct Bilirubin AST ALT Alkaline Phosphatase Lactate Dehydrogenase Troponin T C-Reactive Protein Total Protein Albumin Prealbumin Triglycerides Cholesterol LDL Cholesterol Direct HDL Cholesterol 25-OH Vitamin D Total PTH Intact Urine pH Urine WBC (Auto) Urine Creatinine Urine Total Protein Fluid Total Protein Vancomycin Trough Rheumatoid Factor Complement C4 Miscellaneous Test Crossmatch 10/14/16 10/14/16 10/14/16 11:44 17:13 23:28 WBC RBC Hgb Hct MCV MCH MCHC RDW Plt Count Lymph % (Auto) [place] % (Auto) Lymph # [place] # Baso # Seg Neutrophils % Seg Neuts % (Manual) Lymphocytes % (Manual) Monocytes % (Manual) Eosinophils % (Manual) Basophils % (Manual) Nucleated RBC % Seg Neutrophils # Seg Neutrophils # Man Lymphocytes # (Manual) Monocytes # (Manual) Eosinophils # (Manual) Basophils # (Manual) PT INR Fibrinogen dRVVT Confirm Interp Factor V Activity POC ABG pH POC ABG pCO2 POC ABG pO2 ABG pO2 ABG HCO3 ABG Base Excess ABG Hemoglobin Oxyhemoglobin Sodium Potassium Chloride Carbon Dioxide BUN Creatinine Glucose POC Glucose 174 H 121 H 151 H Lactic Acid Calcium Ionized Calcium Phosphorus Magnesium Direct Bilirubin AST ALT Alkaline Phosphatase Lactate Dehydrogenase Troponin T C-Reactive Protein Total Protein Albumin Prealbumin Triglycerides Cholesterol LDL Cholesterol Direct HDL Cholesterol 25-OH Vitamin D Total PTH Intact Urine pH Urine WBC (Auto) Urine Creatinine Urine Total Protein Fluid Total Protein Vancomycin Trough Rheumatoid Factor Complement C4 Miscellaneous Test Crossmatch 10/15/16 10/15/16 10/15/16 05:06 12:26 17:48 WBC RBC Hgb Hct MCV MCH MCHC RDW Plt Count Lymph % (Auto) [place] % (Auto) Lymph # [place] # Baso # Seg Neutrophils % Seg Neuts % (Manual) Lymphocytes % (Manual) Monocytes % (Manual) Eosinophils % (Manual) Basophils % (Manual) Nucleated RBC % Seg Neutrophils # Seg Neutrophils # Man Lymphocytes # (Manual) Monocytes # (Manual) Eosinophils # (Manual) Basophils # (Manual) PT INR Fibrinogen dRVVT Confirm Interp Factor V Activity POC ABG pH POC ABG pCO2 POC ABG pO2 ABG pO2 ABG HCO3 ABG Base Excess ABG Hemoglobin Oxyhemoglobin Sodium Potassium Chloride Carbon Dioxide BUN Creatinine Glucose POC Glucose 151 H 149 H 153 H Lactic Acid Calcium Ionized Calcium Phosphorus Magnesium Direct Bilirubin AST ALT Alkaline Phosphatase Lactate Dehydrogenase Troponin T C-Reactive Protein Total Protein Albumin Prealbumin Triglycerides Cholesterol LDL Cholesterol Direct HDL Cholesterol 25-OH Vitamin D Total PTH Intact Urine pH Urine WBC (Auto) Urine Creatinine Urine Total Protein Fluid Total Protein Vancomycin Trough Rheumatoid Factor Complement C4 Miscellaneous Test Crossmatch 10/15/16 10/15/16 10/16/16 Unknown Unknown 00:02 WBC 23.4 H RBC 2.78 L Hgb 8.5 L Hct 25.7 L MCV MCH MCHC RDW 18.7 H Plt Count Lymph % (Auto) [place] % (Auto) Lymph # [place] # Baso # Seg Neutrophils % Seg Neuts % (Manual) Lymphocytes % (Manual) Monocytes % (Manual) Eosinophils % (Manual) Basophils % (Manual) Nucleated RBC % Seg Neutrophils # Seg Neutrophils # Man Lymphocytes # (Manual) Monocytes # (Manual) Eosinophils # (Manual) Basophils # (Manual) PT INR Fibrinogen dRVVT Confirm Interp Factor V Activity POC ABG pH POC ABG pCO2 POC ABG pO2 ABG pO2 ABG HCO3 ABG Base Excess ABG Hemoglobin Oxyhemoglobin Sodium Potassium Chloride Carbon Dioxide BUN 73 H Creatinine 2.3 H Glucose 120 H POC Glucose 137 H Lactic Acid Calcium Ionized Calcium Phosphorus Magnesium Direct Bilirubin AST ALT Alkaline Phosphatase Lactate Dehydrogenase Troponin T C-Reactive Protein Total Protein Albumin Prealbumin Triglycerides Cholesterol LDL Cholesterol Direct HDL Cholesterol 25-OH Vitamin D Total PTH Intact Urine pH Urine WBC (Auto) Urine Creatinine Urine Total Protein Fluid Total Protein Vancomycin Trough Rheumatoid Factor Complement C4 Miscellaneous Test Crossmatch 10/16/16 10/16/16 10/16/16 05:44 06:25 06:25 WBC 22.5 H RBC 2.76 L Hgb 8.3 L Hct 25.2 L MCV MCH MCHC RDW 18.3 H Plt Count Lymph % (Auto) [place] % (Auto) Lymph # [place] # Baso # Seg Neutrophils % Seg Neuts % (Manual) Lymphocytes % (Manual) Monocytes % (Manual) Eosinophils % (Manual) Basophils % (Manual) Nucleated RBC % Seg Neutrophils # Seg Neutrophils # Man Lymphocytes # (Manual) Monocytes # (Manual) Eosinophils # (Manual) Basophils # (Manual) PT INR Fibrinogen dRVVT Confirm Interp Factor V Activity POC ABG pH POC ABG pCO2 POC ABG pO2 ABG pO2 ABG HCO3 ABG Base Excess ABG Hemoglobin Oxyhemoglobin Sodium Potassium Chloride Carbon Dioxide BUN 92 H Creatinine 3.0 H Glucose 138 H POC Glucose 110 H Lactic Acid Calcium Ionized Calcium Phosphorus Magnesium Direct Bilirubin AST ALT Alkaline Phosphatase Lactate Dehydrogenase Troponin T C-Reactive Protein Total Protein Albumin Prealbumin Triglycerides Cholesterol LDL Cholesterol Direct HDL Cholesterol 25-OH Vitamin D Total PTH Intact Urine pH Urine WBC (Auto) Urine Creatinine Urine Total Protein Fluid Total Protein Vancomycin Trough Rheumatoid Factor Complement C4 Miscellaneous Test Crossmatch 10/16/16 10/16/16 10/16/16 11:27 11:48 17:36 WBC RBC Hgb Hct MCV MCH MCHC RDW Plt Count Lymph % (Auto) [place] % (Auto) Lymph # [place] # Baso # Seg Neutrophils % Seg Neuts % (Manual) Lymphocytes % (Manual) Monocytes % (Manual) Eosinophils % (Manual) Basophils % (Manual) Nucleated RBC % Seg Neutrophils # Seg Neutrophils # Man Lymphocytes # (Manual) Monocytes # (Manual) Eosinophils # (Manual) Basophils # (Manual) PT INR Fibrinogen dRVVT Confirm Interp Factor V Activity POC ABG pH 7.582 H POC ABG pCO2 27.4 L POC ABG pO2 110 H ABG pO2 ABG HCO3 ABG Base Excess ABG Hemoglobin Oxyhemoglobin Sodium Potassium Chloride Carbon Dioxide BUN Creatinine Glucose POC Glucose 121 H 133 H Lactic Acid Calcium Ionized Calcium Phosphorus Magnesium Direct Bilirubin AST ALT Alkaline Phosphatase Lactate Dehydrogenase Troponin T C-Reactive Protein Total Protein Albumin Prealbumin Triglycerides Cholesterol LDL Cholesterol Direct HDL Cholesterol 25-OH Vitamin D Total PTH Intact Urine pH Urine WBC (Auto) Urine Creatinine Urine Total Protein Fluid Total Protein Vancomycin Trough Rheumatoid Factor Complement C4 Miscellaneous Test Crossmatch 10/16/16 10/17/16 10/17/16 20:48 04:24 04:24 WBC 21.4 H RBC 2.72 L Hgb 8.0 L Hct 25.2 L MCV MCH MCHC RDW 18.0 H Plt Count Lymph % (Auto) [place] % (Auto) Lymph # [place] # Baso # Seg Neutrophils % Seg Neuts % (Manual) Lymphocytes % (Manual) Monocytes % (Manual) Eosinophils % (Manual) Basophils % (Manual) Nucleated RBC % Seg Neutrophils # Seg Neutrophils # Man Lymphocytes # (Manual) Monocytes # (Manual) Eosinophils # (Manual) Basophils # (Manual) PT INR Fibrinogen dRVVT Confirm Interp Factor V Activity POC ABG pH 7.561 H POC ABG pCO2 24.4 L POC ABG pO2 77 L ABG pO2 ABG HCO3 ABG Base Excess ABG Hemoglobin Oxyhemoglobin Sodium 148 H Potassium Chloride Carbon Dioxide BUN 104 H Creatinine 3.0 H Glucose 149 H POC Glucose Lactic Acid Calcium Ionized Calcium Phosphorus Magnesium Direct Bilirubin AST ALT Alkaline Phosphatase 138 H Lactate Dehydrogenase Troponin T C-Reactive Protein Total Protein 6.2 L Albumin 1.5 L Prealbumin Triglycerides Cholesterol LDL Cholesterol Direct HDL Cholesterol 25-OH Vitamin D Total PTH Intact Urine pH Urine WBC (Auto) Urine Creatinine Urine Total Protein Fluid Total Protein Vancomycin Trough Rheumatoid Factor Complement C4 Miscellaneous Test Crossmatch 10/17/16 10/17/16 10/17/16 06:02 12:17 17:14 WBC RBC Hgb Hct MCV MCH MCHC RDW Plt Count Lymph % (Auto) [place] % (Auto) Lymph # [place] # Baso # Seg Neutrophils % Seg Neuts % (Manual) Lymphocytes % (Manual) Monocytes % (Manual) Eosinophils % (Manual) Basophils % (Manual) Nucleated RBC % Seg Neutrophils # Seg Neutrophils # Man Lymphocytes # (Manual) Monocytes # (Manual) Eosinophils # (Manual) Basophils # (Manual) PT INR Fibrinogen dRVVT Confirm Interp Factor V Activity POC ABG pH POC ABG pCO2 POC ABG pO2 ABG pO2 ABG HCO3 ABG Base Excess ABG Hemoglobin Oxyhemoglobin Sodium Potassium Chloride Carbon Dioxide BUN Creatinine Glucose POC Glucose 170 H 167 H 126 H Lactic Acid Calcium Ionized Calcium Phosphorus Magnesium Direct Bilirubin AST ALT Alkaline Phosphatase Lactate Dehydrogenase Troponin T C-Reactive Protein Total Protein Albumin Prealbumin Triglycerides Cholesterol LDL Cholesterol Direct HDL Cholesterol 25-OH Vitamin D Total PTH Intact Urine pH Urine WBC (Auto) Urine Creatinine Urine Total Protein Fluid Total Protein Vancomycin Trough Rheumatoid Factor Complement C4 Miscellaneous Test Crossmatch 10/17/16 10/18/16 10/18/16 23:17 04:00 04:00 WBC 20.7 H RBC 2.47 L Hgb 7.4 L Hct 22.9 L MCV MCH MCHC RDW 17.5 H Plt Count Lymph % (Auto) [place] % (Auto) Lymph # [place] # Baso # Seg Neutrophils % Seg Neuts % (Manual) Lymphocytes % (Manual) Monocytes % (Manual) Eosinophils % (Manual) Basophils % (Manual) Nucleated RBC % Seg Neutrophils # Seg Neutrophils # Man Lymphocytes # (Manual) Monocytes # (Manual) Eosinophils # (Manual) Basophils # (Manual) PT INR Fibrinogen dRVVT Confirm Interp Factor V Activity POC ABG pH POC ABG pCO2 POC ABG pO2 ABG pO2 ABG HCO3 ABG Base Excess ABG Hemoglobin Oxyhemoglobin Sodium 149 H Potassium Chloride 107.9 H Carbon Dioxide 20 L BUN 117 H Creatinine 3.2 H Glucose 119 H POC Glucose 121 H Lactic Acid Calcium Ionized Calcium Phosphorus Magnesium Direct Bilirubin AST ALT Alkaline Phosphatase Lactate Dehydrogenase Troponin T C-Reactive Protein Total Protein Albumin Prealbumin Triglycerides Cholesterol LDL Cholesterol Direct HDL Cholesterol 25-OH Vitamin D Total PTH Intact Urine pH Urine WBC (Auto) Urine Creatinine Urine Total Protein Fluid Total Protein Vancomycin Trough Rheumatoid Factor Complement C4 Miscellaneous Test Crossmatch 10/18/16 10/18/16 10/18/16 05:23 10:46 17:30 WBC RBC Hgb Hct MCV MCH MCHC RDW Plt Count Lymph % (Auto) [place] % (Auto) Lymph # [place] # Baso # Seg Neutrophils % Seg Neuts % (Manual) Lymphocytes % (Manual) Monocytes % (Manual) Eosinophils % (Manual) Basophils % (Manual) Nucleated RBC % Seg Neutrophils # Seg Neutrophils # Man Lymphocytes # (Manual) Monocytes # (Manual) Eosinophils # (Manual) Basophils # (Manual) PT INR Fibrinogen dRVVT Confirm Interp Factor V Activity POC ABG pH POC ABG pCO2 POC ABG pO2 ABG pO2 ABG HCO3 ABG Base Excess ABG Hemoglobin Oxyhemoglobin Sodium Potassium Chloride Carbon Dioxide BUN Creatinine Glucose POC Glucose 119 H 155 H 124 H Lactic Acid Calcium Ionized Calcium Phosphorus Magnesium Direct Bilirubin AST ALT Alkaline Phosphatase Lactate Dehydrogenase Troponin T C-Reactive Protein Total Protein Albumin Prealbumin Triglycerides Cholesterol LDL Cholesterol Direct HDL Cholesterol 25-OH Vitamin D Total PTH Intact Urine pH Urine WBC (Auto) Urine Creatinine Urine Total Protein Fluid Total Protein Vancomycin Trough Rheumatoid Factor Complement C4 Miscellaneous Test Crossmatch 10/19/16 10/19/16 10/19/16 04:00 04:00 05:25 WBC 17.4 H RBC 2.54 L Hgb 7.7 L Hct 23.6 L MCV MCH MCHC RDW 17.3 H Plt Count Lymph % (Auto) [place] % (Auto) Lymph # [place] # Baso # Seg Neutrophils % Seg Neuts % (Manual) Lymphocytes % (Manual) Monocytes % (Manual) Eosinophils % (Manual) Basophils % (Manual) Nucleated RBC % Seg Neutrophils # Seg Neutrophils # Man Lymphocytes # (Manual) Monocytes # (Manual) Eosinophils # (Manual) Basophils # (Manual) PT INR Fibrinogen dRVVT Confirm Interp Factor V Activity POC ABG pH POC ABG pCO2 POC ABG pO2 ABG pO2 ABG HCO3 ABG Base Excess ABG Hemoglobin Oxyhemoglobin Sodium Potassium Chloride Carbon Dioxide BUN 72 H Creatinine 2.1 H Glucose 116 H POC Glucose 119 H Lactic Acid Calcium Ionized Calcium Phosphorus Magnesium Direct Bilirubin AST ALT Alkaline Phosphatase Lactate Dehydrogenase Troponin T C-Reactive Protein Total Protein Albumin Prealbumin Triglycerides Cholesterol LDL Cholesterol Direct HDL Cholesterol 25-OH Vitamin D Total PTH Intact Urine pH Urine WBC (Auto) Urine Creatinine Urine Total Protein Fluid Total Protein Vancomycin Trough Rheumatoid Factor Complement C4 Miscellaneous Test Crossmatch 10/19/16 10/19/16 10/20/16 11:46 23:59 06:00 WBC RBC Hgb Hct MCV MCH MCHC RDW Plt Count Lymph % (Auto) [place] % (Auto) Lymph # [place] # Baso # Seg Neutrophils % Seg Neuts % (Manual) Lymphocytes % (Manual) Monocytes % (Manual) Eosinophils % (Manual) Basophils % (Manual) Nucleated RBC % Seg Neutrophils # Seg Neutrophils # Man Lymphocytes # (Manual) Monocytes # (Manual) Eosinophils # (Manual) Basophils # (Manual) PT INR Fibrinogen dRVVT Confirm Interp Factor V Activity POC ABG pH POC ABG pCO2 POC ABG pO2 ABG pO2 ABG HCO3 ABG Base Excess ABG Hemoglobin Oxyhemoglobin Sodium Potassium Chloride Carbon Dioxide 17 L BUN 94 H Creatinine 2.7 H Glucose POC Glucose 116 H 117 H Lactic Acid Calcium Ionized Calcium Phosphorus Magnesium Direct Bilirubin AST ALT Alkaline Phosphatase Lactate Dehydrogenase Troponin T C-Reactive Protein Total Protein Albumin Prealbumin Triglycerides Cholesterol LDL Cholesterol Direct HDL Cholesterol 25-OH Vitamin D Total PTH Intact Urine pH Urine WBC (Auto) Urine Creatinine Urine Total Protein Fluid Total Protein Vancomycin Trough Rheumatoid Factor Complement C4 Miscellaneous Test Crossmatch 10/20/16 10/20/16 10/20/16 06:00 11:49 16:00 WBC 19.7 H RBC 2.51 L Hgb 7.7 L Hct 23.5 L MCV MCH MCHC RDW 17.5 H Plt Count Lymph % (Auto) [place] % (Auto) Lymph # [place] # Baso # Seg Neutrophils % Seg Neuts % (Manual) Lymphocytes % (Manual) Monocytes % (Manual) Eosinophils % (Manual) Basophils % (Manual) Nucleated RBC % Seg Neutrophils # Seg Neutrophils # Man Lymphocytes # (Manual) Monocytes # (Manual) Eosinophils # (Manual) Basophils # (Manual) PT INR Fibrinogen dRVVT Confirm Interp Factor V Activity POC ABG pH POC ABG pCO2 POC ABG pO2 ABG pO2 ABG HCO3 ABG Base Excess ABG Hemoglobin Oxyhemoglobin Sodium Potassium Chloride Carbon Dioxide BUN Creatinine Glucose POC Glucose 117 H Lactic Acid Calcium Ionized Calcium Phosphorus Magnesium Direct Bilirubin AST ALT Alkaline Phosphatase Lactate Dehydrogenase Troponin T C-Reactive Protein Total Protein Albumin Prealbumin Triglycerides Cholesterol LDL Cholesterol Direct HDL Cholesterol 25-OH Vitamin D Total PTH Intact Urine pH Urine WBC (Auto) Urine Creatinine Urine Total Protein Fluid Total Protein Vancomycin Trough Rheumatoid Factor Complement C4 Miscellaneous Test Flexitest 1 H Crossmatch 10/20/16 10/20/16 10/21/16 18:36 23:39 04:00 WBC RBC Hgb Hct MCV MCH MCHC RDW Plt Count Lymph % (Auto) [place] % (Auto) Lymph # [place] # Baso # Seg Neutrophils % Seg Neuts % (Manual) Lymphocytes % (Manual) Monocytes % (Manual) Eosinophils % (Manual) Basophils % (Manual) Nucleated RBC % Seg Neutrophils # Seg Neutrophils # Man Lymphocytes # (Manual) Monocytes # (Manual) Eosinophils # (Manual) Basophils # (Manual) PT INR Fibrinogen dRVVT Confirm Interp Factor V Activity POC ABG pH POC ABG pCO2 POC ABG pO2 ABG pO2 ABG HCO3 ABG Base Excess ABG Hemoglobin Oxyhemoglobin Sodium Potassium 5.4 H D Chloride Carbon Dioxide 15 L BUN 110 H Creatinine 3.0 H Glucose POC Glucose 127 H 114 H Lactic Acid Calcium Ionized Calcium Phosphorus Magnesium Direct Bilirubin AST ALT Alkaline Phosphatase Lactate Dehydrogenase Troponin T C-Reactive Protein Total Protein Albumin Prealbumin Triglycerides Cholesterol LDL Cholesterol Direct HDL Cholesterol 25-OH Vitamin D Total PTH Intact Urine pH Urine WBC (Auto) Urine Creatinine Urine Total Protein Fluid Total Protein Vancomycin Trough Rheumatoid Factor Complement C4 Miscellaneous Test Crossmatch 10/21/16 10/21/16 10/22/16 05:54 23:46 05:18 WBC RBC Hgb Hct MCV MCH MCHC RDW Plt Count Lymph % (Auto) [place] % (Auto) Lymph # [place] # Baso # Seg Neutrophils % Seg Neuts % (Manual) Lymphocytes % (Manual) Monocytes % (Manual) Eosinophils % (Manual) Basophils % (Manual) Nucleated RBC % Seg Neutrophils # Seg Neutrophils # Man Lymphocytes # (Manual) Monocytes # (Manual) Eosinophils # (Manual) Basophils # (Manual) PT INR Fibrinogen dRVVT Confirm Interp Factor V Activity POC ABG pH POC ABG pCO2 POC ABG pO2 ABG pO2 ABG HCO3 ABG Base Excess ABG Hemoglobin Oxyhemoglobin Sodium Potassium Chloride Carbon Dioxide BUN Creatinine Glucose POC Glucose 119 H 108 H 109 H Lactic Acid Calcium Ionized Calcium Phosphorus Magnesium Direct Bilirubin AST ALT Alkaline Phosphatase Lactate Dehydrogenase Troponin T C-Reactive Protein Total Protein Albumin Prealbumin Triglycerides Cholesterol LDL Cholesterol Direct HDL Cholesterol 25-OH Vitamin D Total PTH Intact Urine pH Urine WBC (Auto) Urine Creatinine Urine Total Protein Fluid Total Protein Vancomycin Trough Rheumatoid Factor Complement C4 Miscellaneous Test Crossmatch 10/22/16 10/22/16 10/22/16 06:40 06:40 06:40 WBC 14.0 H RBC 2.03 L Hgb 7.0 L Hct 20.5 L MCV 98 H MCH 34 H MCHC 35 H RDW 17.8 H Plt Count Lymph % (Auto) [place] % (Auto) 9.9 H Lymph # [place] # 1.4 H Baso # 0.2 H Seg Neutrophils % 72.0 H Seg Neuts % (Manual) Lymphocytes % (Manual) Monocytes % (Manual) Eosinophils % (Manual) Basophils % (Manual) Nucleated RBC % Seg Neutrophils # 10.0 H Seg Neutrophils # Man Lymphocytes # (Manual) Monocytes # (Manual) Eosinophils # (Manual) Basophils # (Manual) PT INR Fibrinogen dRVVT Confirm Interp Factor V Activity POC ABG pH POC ABG pCO2 POC ABG pO2 ABG pO2 ABG HCO3 ABG Base Excess ABG Hemoglobin Oxyhemoglobin Sodium 130 L D Potassium Chloride 92.4 L Carbon Dioxide 20 L BUN 50 H Creatinine 1.6 H Glucose 589 H* POC Glucose Lactic Acid Calcium 7.8 L D Ionized Calcium Phosphorus Magnesium 1.60 L Direct Bilirubin AST ALT Alkaline Phosphatase Lactate Dehydrogenase Troponin T C-Reactive Protein Total Protein Albumin Prealbumin Triglycerides Cholesterol LDL Cholesterol Direct HDL Cholesterol 25-OH Vitamin D Total PTH Intact Urine pH Urine WBC (Auto) Urine Creatinine Urine Total Protein Fluid Total Protein Vancomycin Trough Rheumatoid Factor Complement C4 Miscellaneous Test Crossmatch 10/22/16 10/22/16 10/22/16 11:39 16:44 23:36 WBC RBC Hgb Hct MCV MCH MCHC RDW Plt Count Lymph % (Auto) [place] % (Auto) Lymph # [place] # Baso # Seg Neutrophils % Seg Neuts % (Manual) Lymphocytes % (Manual) Monocytes % (Manual) Eosinophils % (Manual) Basophils % (Manual) Nucleated RBC % Seg Neutrophils # Seg Neutrophils # Man Lymphocytes # (Manual) Monocytes # (Manual) Eosinophils # (Manual) Basophils # (Manual) PT INR Fibrinogen dRVVT Confirm Interp Factor V Activity POC ABG pH POC ABG pCO2 POC ABG pO2 ABG pO2 ABG HCO3 ABG Base Excess ABG Hemoglobin Oxyhemoglobin Sodium Potassium Chloride Carbon Dioxide BUN Creatinine Glucose POC Glucose 142 H 163 H 123 H Lactic Acid Calcium Ionized Calcium Phosphorus Magnesium Direct Bilirubin AST ALT Alkaline Phosphatase Lactate Dehydrogenase Troponin T C-Reactive Protein Total Protein Albumin Prealbumin Triglycerides Cholesterol LDL Cholesterol Direct HDL Cholesterol 25-OH Vitamin D Total PTH Intact Urine pH Urine WBC (Auto) Urine Creatinine Urine Total Protein Fluid Total Protein Vancomycin Trough Rheumatoid Factor Complement C4 Miscellaneous Test Crossmatch 10/23/16 10/23/16 10/23/16 04:58 06:00 12:12 WBC RBC Hgb Hct MCV MCH MCHC RDW Plt Count Lymph % (Auto) [place] % (Auto) Lymph # [place] # Baso # Seg Neutrophils % Seg Neuts % (Manual) Lymphocytes % (Manual) Monocytes % (Manual) Eosinophils % (Manual) Basophils % (Manual) Nucleated RBC % Seg Neutrophils # Seg Neutrophils # Man Lymphocytes # (Manual) Monocytes # (Manual) Eosinophils # (Manual) Basophils # (Manual) PT INR Fibrinogen dRVVT Confirm Interp Factor V Activity POC ABG pH POC ABG pCO2 POC ABG pO2 ABG pO2 ABG HCO3 ABG Base Excess ABG Hemoglobin Oxyhemoglobin Sodium 133 L Potassium 3.5 L Chloride 96.1 L Carbon Dioxide 18 L BUN 76 H Creatinine 2.1 H Glucose POC Glucose 133 H 138 H Lactic Acid Calcium 8.3 L Ionized Calcium Phosphorus Magnesium Direct Bilirubin AST ALT Alkaline Phosphatase Lactate Dehydrogenase Troponin T C-Reactive Protein Total Protein Albumin Prealbumin Triglycerides Cholesterol LDL Cholesterol Direct HDL Cholesterol 25-OH Vitamin D Total PTH Intact Urine pH Urine WBC (Auto) Urine Creatinine Urine Total Protein Fluid Total Protein Vancomycin Trough Rheumatoid Factor Complement C4 Miscellaneous Test Crossmatch 10/23/16 10/23/16 10/24/16 16:53 23:37 04:00 WBC RBC Hgb Hct MCV MCH MCHC RDW Plt Count Lymph % (Auto) [place] % (Auto) Lymph # [place] # Baso # Seg Neutrophils % Seg Neuts % (Manual) Lymphocytes % (Manual) Monocytes % (Manual) Eosinophils % (Manual) Basophils % (Manual) Nucleated RBC % Seg Neutrophils # Seg Neutrophils # Man Lymphocytes # (Manual) Monocytes # (Manual) Eosinophils # (Manual) Basophils # (Manual) PT INR Fibrinogen dRVVT Confirm Interp Factor V Activity POC ABG pH POC ABG pCO2 POC ABG pO2 ABG pO2 ABG HCO3 ABG Base Excess ABG Hemoglobin Oxyhemoglobin Sodium 131 L Potassium Chloride 94.5 L Carbon Dioxide 19 L BUN 97 H Creatinine 2.6 H Glucose 110 H POC Glucose 125 H 123 H Lactic Acid Calcium 8.3 L Ionized Calcium Phosphorus Magnesium Direct Bilirubin AST ALT Alkaline Phosphatase Lactate Dehydrogenase Troponin T C-Reactive Protein Total Protein Albumin Prealbumin Triglycerides Cholesterol LDL Cholesterol Direct HDL Cholesterol 25-OH Vitamin D Total PTH Intact Urine pH Urine WBC (Auto) Urine Creatinine Urine Total Protein Fluid Total Protein Vancomycin Trough Rheumatoid Factor Complement C4 Miscellaneous Test Crossmatch 10/24/16 10/24/16 10/24/16 07:49 11:39 17:52 WBC RBC Hgb 6.0 L Hct 19.7 L* MCV MCH MCHC RDW Plt Count Lymph % (Auto) [place] % (Auto) Lymph # [place] # Baso # Seg Neutrophils % Seg Neuts % (Manual) Lymphocytes % (Manual) Monocytes % (Manual) Eosinophils % (Manual) Basophils % (Manual) Nucleated RBC % Seg Neutrophils # Seg Neutrophils # Man Lymphocytes # (Manual) Monocytes # (Manual) Eosinophils # (Manual) Basophils # (Manual) PT INR Fibrinogen dRVVT Confirm Interp Factor V Activity POC ABG pH POC ABG pCO2 POC ABG pO2 ABG pO2 ABG HCO3 ABG Base Excess ABG Hemoglobin Oxyhemoglobin Sodium Potassium Chloride Carbon Dioxide BUN Creatinine Glucose POC Glucose 106 H 158 H Lactic Acid Calcium Ionized Calcium Phosphorus Magnesium Direct Bilirubin AST ALT Alkaline Phosphatase Lactate Dehydrogenase Troponin T C-Reactive Protein Total Protein Albumin Prealbumin Triglycerides Cholesterol LDL Cholesterol Direct HDL Cholesterol 25-OH Vitamin D Total PTH Intact Urine pH Urine WBC (Auto) Urine Creatinine Urine Total Protein Fluid Total Protein Vancomycin Trough Rheumatoid Factor Complement C4 Miscellaneous Test Crossmatch 10/24/16 10/24/16 10/24/16 20:00 22:27 Unknown WBC RBC Hgb 9.4 L D Hct 27.5 L D MCV MCH MCHC RDW Plt Count Lymph % (Auto) [place] % (Auto) Lymph # [place] # Baso # Seg Neutrophils % Seg Neuts % (Manual) Lymphocytes % (Manual) Monocytes % (Manual) Eosinophils % (Manual) Basophils % (Manual) Nucleated RBC % Seg Neutrophils # Seg Neutrophils # Man Lymphocytes # (Manual) Monocytes # (Manual) Eosinophils # (Manual) Basophils # (Manual) PT INR Fibrinogen dRVVT Confirm Interp Factor V Activity POC ABG pH POC ABG pCO2 POC ABG pO2 ABG pO2 ABG HCO3 ABG Base Excess ABG Hemoglobin Oxyhemoglobin Sodium Potassium Chloride Carbon Dioxide BUN Creatinine Glucose POC Glucose 125 H Lactic Acid Calcium Ionized Calcium Phosphorus Magnesium Direct Bilirubin AST ALT Alkaline Phosphatase Lactate Dehydrogenase Troponin T C-Reactive Protein Total Protein Albumin Prealbumin Triglycerides Cholesterol LDL Cholesterol Direct HDL Cholesterol 25-OH Vitamin D Total PTH Intact Urine pH Urine WBC (Auto) Urine Creatinine Urine Total Protein Fluid Total Protein Vancomycin Trough Rheumatoid Factor Complement C4 Miscellaneous Test Crossmatch See Detail 10/25/16 10/25/16 10/25/16 04:00 04:00 04:00 WBC 14.2 H RBC 2.98 L Hgb 9.0 L Hct 26.2 L MCV MCH MCHC RDW 16.6 H Plt Count Lymph % (Auto) [place] % (Auto) 10.7 H Lymph # [place] # 1.5 H Baso # Seg Neutrophils % 73.6 H Seg Neuts % (Manual) Lymphocytes % (Manual) Monocytes % (Manual) Eosinophils % (Manual) Basophils % (Manual) Nucleated RBC % Seg Neutrophils # 10.5 H Seg Neutrophils # Man Lymphocytes # (Manual) Monocytes # (Manual) Eosinophils # (Manual) Basophils # (Manual) PT INR Fibrinogen dRVVT Confirm Interp Factor V Activity POC ABG pH POC ABG pCO2 POC ABG pO2 ABG pO2 ABG HCO3 ABG Base Excess ABG Hemoglobin Oxyhemoglobin Sodium 132 L Potassium Chloride 94.7 L Carbon Dioxide BUN 51 H Creatinine 1.6 H Glucose 130 H POC Glucose Lactic Acid Calcium 8.3 L Ionized Calcium Phosphorus 1.60 L D Magnesium Direct Bilirubin AST ALT Alkaline Phosphatase Lactate Dehydrogenase Troponin T C-Reactive Protein Total Protein Albumin Prealbumin Triglycerides Cholesterol LDL Cholesterol Direct HDL Cholesterol 25-OH Vitamin D Total PTH Intact Urine pH Urine WBC (Auto) Urine Creatinine Urine Total Protein Fluid Total Protein Vancomycin Trough Rheumatoid Factor Complement C4 Miscellaneous Test Crossmatch 10/25/16 10/25/16 10/25/16 04:32 11:48 17:22 WBC RBC Hgb Hct MCV MCH MCHC RDW Plt Count Lymph % (Auto) [place] % (Auto) Lymph # [place] # Baso # Seg Neutrophils % Seg Neuts % (Manual) Lymphocytes % (Manual) Monocytes % (Manual) Eosinophils % (Manual) Basophils % (Manual) Nucleated RBC % Seg Neutrophils # Seg Neutrophils # Man Lymphocytes # (Manual) Monocytes # (Manual) Eosinophils # (Manual) Basophils # (Manual) PT INR Fibrinogen dRVVT Confirm Interp Factor V Activity POC ABG pH POC ABG pCO2 POC ABG pO2 ABG pO2 ABG HCO3 ABG Base Excess ABG Hemoglobin Oxyhemoglobin Sodium Potassium Chloride Carbon Dioxide BUN Creatinine Glucose POC Glucose 124 H 171 H 120 H Lactic Acid Calcium Ionized Calcium Phosphorus Magnesium Direct Bilirubin AST ALT Alkaline Phosphatase Lactate Dehydrogenase Troponin T C-Reactive Protein Total Protein Albumin Prealbumin Triglycerides Cholesterol LDL Cholesterol Direct HDL Cholesterol 25-OH Vitamin D Total PTH Intact Urine pH Urine WBC (Auto) Urine Creatinine Urine Total Protein Fluid Total Protein Vancomycin Trough Rheumatoid Factor Complement C4 Miscellaneous Test Crossmatch 10/26/16 10/26/16 10/26/16 04:54 07:06 07:06 WBC 16.9 H RBC 3.06 L Hgb 9.1 L Hct 26.9 L MCV MCH MCHC RDW 16.9 H Plt Count Lymph % (Auto) [place] % (Auto) Lymph # [place] # Baso # Seg Neutrophils % Seg Neuts % (Manual) 71.0 H Lymphocytes % (Manual) 5.0 L Monocytes % (Manual) 12.0 H Eosinophils % (Manual) Basophils % (Manual) Nucleated RBC % Seg Neutrophils # Seg Neutrophils # Man 12.0 H Lymphocytes # (Manual) 0.8 L Monocytes # (Manual) 2.0 H Eosinophils # (Manual) Basophils # (Manual) PT INR Fibrinogen dRVVT Confirm Interp Factor V Activity POC ABG pH POC ABG pCO2 POC ABG pO2 ABG pO2 ABG HCO3 ABG Base Excess ABG Hemoglobin Oxyhemoglobin Sodium 135 L Potassium Chloride 97.1 L Carbon Dioxide BUN 73 H Creatinine 2.2 H Glucose 117 H POC Glucose 123 H Lactic Acid Calcium Ionized Calcium Phosphorus 1.70 L Magnesium Direct Bilirubin AST ALT Alkaline Phosphatase Lactate Dehydrogenase Troponin T C-Reactive Protein Total Protein Albumin Prealbumin Triglycerides Cholesterol LDL Cholesterol Direct HDL Cholesterol 25-OH Vitamin D Total PTH Intact Urine pH Urine WBC (Auto) Urine Creatinine Urine Total Protein Fluid Total Protein Vancomycin Trough Rheumatoid Factor Complement C4 Miscellaneous Test Crossmatch 10/26/16 10/26/16 10/26/16 12:12 17:29 23:42 WBC RBC Hgb Hct MCV MCH MCHC RDW Plt Count Lymph % (Auto) [place] % (Auto) Lymph # [place] # Baso # Seg Neutrophils % Seg Neuts % (Manual) Lymphocytes % (Manual) Monocytes % (Manual) Eosinophils % (Manual) Basophils % (Manual) Nucleated RBC % Seg Neutrophils # Seg Neutrophils # Man Lymphocytes # (Manual) Monocytes # (Manual) Eosinophils # (Manual) Basophils # (Manual) PT INR Fibrinogen dRVVT Confirm Interp Factor V Activity POC ABG pH POC ABG pCO2 POC ABG pO2 ABG pO2 ABG HCO3 ABG Base Excess ABG Hemoglobin Oxyhemoglobin Sodium Potassium Chloride Carbon Dioxide BUN Creatinine Glucose POC Glucose 126 H 161 H 118 H Lactic Acid Calcium Ionized Calcium Phosphorus Magnesium Direct Bilirubin AST ALT Alkaline Phosphatase Lactate Dehydrogenase Troponin T C-Reactive Protein Total Protein Albumin Prealbumin Triglycerides Cholesterol LDL Cholesterol Direct HDL Cholesterol 25-OH Vitamin D Total PTH Intact Urine pH Urine WBC (Auto) Urine Creatinine Urine Total Protein Fluid Total Protein Vancomycin Trough Rheumatoid Factor Complement C4 Miscellaneous Test Crossmatch 10/27/16 10/27/16 10/27/16 05:03 06:30 06:30 WBC 13.9 H RBC 3.09 L Hgb 9.2 L Hct 27.5 L MCV MCH MCHC RDW 17.0 H Plt Count Lymph % (Auto) [place] % (Auto) Lymph # [place] # Baso # Seg Neutrophils % Seg Neuts % (Manual) 78.0 H Lymphocytes % (Manual) Monocytes % (Manual) Eosinophils % (Manual) Basophils % (Manual) Nucleated RBC % 2.0 H Seg Neutrophils # Seg Neutrophils # Man 10.8 H Lymphocytes # (Manual) Monocytes # (Manual) 1.0 H Eosinophils # (Manual) Basophils # (Manual) PT INR Fibrinogen dRVVT Confirm Interp Factor V Activity POC ABG pH POC ABG pCO2 POC ABG pO2 ABG pO2 ABG HCO3 ABG Base Excess ABG Hemoglobin Oxyhemoglobin Sodium Potassium Chloride Carbon Dioxide BUN 40 H Creatinine 1.5 H Glucose 135 H POC Glucose 107 H Lactic Acid Calcium 8.3 L Ionized Calcium Phosphorus 1.30 L D Magnesium Direct Bilirubin AST ALT Alkaline Phosphatase Lactate Dehydrogenase Troponin T C-Reactive Protein Total Protein Albumin Prealbumin Triglycerides Cholesterol LDL Cholesterol Direct HDL Cholesterol 25-OH Vitamin D Total PTH Intact Urine pH Urine WBC (Auto) Urine Creatinine Urine Total Protein Fluid Total Protein Vancomycin Trough Rheumatoid Factor Complement C4 Miscellaneous Test Crossmatch 10/27/16 10/27/16 10/27/16 13:27 18:07 23:40 WBC RBC Hgb Hct MCV MCH MCHC RDW Plt Count Lymph % (Auto) [place] % (Auto) Lymph # [place] # Baso # Seg Neutrophils % Seg Neuts % (Manual) Lymphocytes % (Manual) Monocytes % (Manual) Eosinophils % (Manual) Basophils % (Manual) Nucleated RBC % Seg Neutrophils # Seg Neutrophils # Man Lymphocytes # (Manual) Monocytes # (Manual) Eosinophils # (Manual) Basophils # (Manual) PT INR Fibrinogen dRVVT Confirm Interp Factor V Activity POC ABG pH POC ABG pCO2 POC ABG pO2 ABG pO2 ABG HCO3 ABG Base Excess ABG Hemoglobin Oxyhemoglobin Sodium Potassium Chloride Carbon Dioxide BUN Creatinine Glucose POC Glucose 117 H 121 H 118 H Lactic Acid Calcium Ionized Calcium Phosphorus Magnesium Direct Bilirubin AST ALT Alkaline Phosphatase Lactate Dehydrogenase Troponin T C-Reactive Protein Total Protein Albumin Prealbumin Triglycerides Cholesterol LDL Cholesterol Direct HDL Cholesterol 25-OH Vitamin D Total PTH Intact Urine pH Urine WBC (Auto) Urine Creatinine Urine Total Protein Fluid Total Protein Vancomycin Trough Rheumatoid Factor Complement C4 Miscellaneous Test Crossmatch 10/28/16 10/28/16 10/28/16 05:48 06:45 06:45 WBC 14.7 H RBC 3.05 L Hgb 9.0 L Hct 26.9 L MCV MCH MCHC RDW 16.8 H Plt Count Lymph % (Auto) 8.2 L [place] % (Auto) 8.4 H Lymph # [place] # 1.2 H Baso # Seg Neutrophils % 81.9 H Seg Neuts % (Manual) Lymphocytes % (Manual) Monocytes % (Manual) Eosinophils % (Manual) Basophils % (Manual) Nucleated RBC % Seg Neutrophils # 12.1 H Seg Neutrophils # Man Lymphocytes # (Manual) Monocytes # (Manual) Eosinophils # (Manual) Basophils # (Manual) PT INR Fibrinogen dRVVT Confirm Interp Factor V Activity POC ABG pH POC ABG pCO2 POC ABG pO2 ABG pO2 ABG HCO3 ABG Base Excess ABG Hemoglobin Oxyhemoglobin Sodium Potassium Chloride Carbon Dioxide BUN 60 H Creatinine 1.9 H Glucose 120 H POC Glucose 114 H Lactic Acid Calcium Ionized Calcium Phosphorus Magnesium Direct Bilirubin AST ALT Alkaline Phosphatase Lactate Dehydrogenase Troponin T C-Reactive Protein Total Protein Albumin Prealbumin Triglycerides Cholesterol LDL Cholesterol Direct HDL Cholesterol 25-OH Vitamin D Total PTH Intact Urine pH Urine WBC (Auto) Urine Creatinine Urine Total Protein Fluid Total Protein Vancomycin Trough Rheumatoid Factor Complement C4 Miscellaneous Test Crossmatch 10/28/16 10/28/16 10/29/16 17:08 23:50 05:10 WBC RBC Hgb Hct MCV MCH MCHC RDW Plt Count Lymph % (Auto) [place] % (Auto) Lymph # [place] # Baso # Seg Neutrophils % Seg Neuts % (Manual) Lymphocytes % (Manual) Monocytes % (Manual) Eosinophils % (Manual) Basophils % (Manual) Nucleated RBC % Seg Neutrophils # Seg Neutrophils # Man Lymphocytes # (Manual) Monocytes # (Manual) Eosinophils # (Manual) Basophils # (Manual) PT INR Fibrinogen dRVVT Confirm Interp Factor V Activity POC ABG pH POC ABG pCO2 POC ABG pO2 ABG pO2 ABG HCO3 ABG Base Excess ABG Hemoglobin Oxyhemoglobin Sodium Potassium Chloride Carbon Dioxide BUN Creatinine Glucose POC Glucose 109 H 110 H 124 H Lactic Acid Calcium Ionized Calcium Phosphorus Magnesium Direct Bilirubin AST ALT Alkaline Phosphatase Lactate Dehydrogenase Troponin T C-Reactive Protein Total Protein Albumin Prealbumin Triglycerides Cholesterol LDL Cholesterol Direct HDL Cholesterol 25-OH Vitamin D Total PTH Intact Urine pH Urine WBC (Auto) Urine Creatinine Urine Total Protein Fluid Total Protein Vancomycin Trough Rheumatoid Factor Complement C4 Miscellaneous Test Crossmatch 10/29/16 10/29/16 10/29/16 07:45 07:45 12:19 WBC 14.7 H RBC 3.15 L Hgb 9.3 L Hct 28.9 L MCV MCH MCHC RDW 17.0 H Plt Count Lymph % (Auto) 11.9 L [place] % (Auto) 8.6 H Lymph # [place] # 1.3 H Baso # Seg Neutrophils % 78.1 H Seg Neuts % (Manual) Lymphocytes % (Manual) Monocytes % (Manual) Eosinophils % (Manual) Basophils % (Manual) Nucleated RBC % Seg Neutrophils # 11.4 H Seg Neutrophils # Man Lymphocytes # (Manual) Monocytes # (Manual) Eosinophils # (Manual) Basophils # (Manual) PT INR Fibrinogen dRVVT Confirm Interp Factor V Activity POC ABG pH POC ABG pCO2 POC ABG pO2 ABG pO2 ABG HCO3 ABG Base Excess ABG Hemoglobin Oxyhemoglobin Sodium Potassium 5.1 H Chloride Carbon Dioxide 19 L BUN 78 H Creatinine 2.2 H Glucose 116 H POC Glucose 118 H Lactic Acid Calcium Ionized Calcium Phosphorus Magnesium Direct Bilirubin AST ALT Alkaline Phosphatase Lactate Dehydrogenase Troponin T C-Reactive Protein Total Protein Albumin Prealbumin Triglycerides Cholesterol LDL Cholesterol Direct HDL Cholesterol 25-OH Vitamin D Total PTH Intact Urine pH Urine WBC (Auto) Urine Creatinine Urine Total Protein Fluid Total Protein Vancomycin Trough Rheumatoid Factor Complement C4 Miscellaneous Test Crossmatch 10/29/16 10/30/16 10/30/16 17:49 01:52 03:28 WBC RBC Hgb Hct MCV MCH MCHC RDW Plt Count Lymph % (Auto) [place] % (Auto) Lymph # [place] # Baso # Seg Neutrophils % Seg Neuts % (Manual) Lymphocytes % (Manual) Monocytes % (Manual) Eosinophils % (Manual) Basophils % (Manual) Nucleated RBC % Seg Neutrophils # Seg Neutrophils # Man Lymphocytes # (Manual) Monocytes # (Manual) Eosinophils # (Manual) Basophils # (Manual) PT INR Fibrinogen dRVVT Confirm Interp Factor V Activity POC ABG pH POC ABG pCO2 POC ABG pO2 ABG pO2 ABG HCO3 ABG Base Excess ABG Hemoglobin Oxyhemoglobin Sodium Potassium 5.4 H Chloride 97.5 L Carbon Dioxide 19 L BUN 90 H Creatinine 2.5 H Glucose POC Glucose 120 H 129 H Lactic Acid Calcium Ionized Calcium Phosphorus 5.20 H Magnesium Direct Bilirubin AST ALT Alkaline Phosphatase Lactate Dehydrogenase Troponin T C-Reactive Protein Total Protein Albumin Prealbumin Triglycerides Cholesterol LDL Cholesterol Direct HDL Cholesterol 25-OH Vitamin D Total PTH Intact Urine pH Urine WBC (Auto) Urine Creatinine Urine Total Protein Fluid Total Protein Vancomycin Trough Rheumatoid Factor Complement C4 Miscellaneous Test Crossmatch 10/30/16 10/30/16 10/30/16 03:28 08:19 08:19 WBC 11.6 H 15.9 H RBC 2.75 L 2.82 L Hgb 7.9 L 8.3 L Hct 24.2 L 25.2 L MCV MCH MCHC RDW 16.7 H 17.2 H Plt Count Lymph % (Auto) [place] % (Auto) 9.8 H Lymph # [place] # 1.1 H Baso # Seg Neutrophils % 74.2 H Seg Neuts % (Manual) Lymphocytes % (Manual) Monocytes % (Manual) Eosinophils % (Manual) Basophils % (Manual) Nucleated RBC % Seg Neutrophils # 8.6 H Seg Neutrophils # Man Lymphocytes # (Manual) Monocytes # (Manual) Eosinophils # (Manual) Basophils # (Manual) PT INR Fibrinogen dRVVT Confirm Interp Factor V Activity POC ABG pH POC ABG pCO2 POC ABG pO2 ABG pO2 ABG HCO3 ABG Base Excess ABG Hemoglobin Oxyhemoglobin Sodium Potassium 5.3 H Chloride 97.4 L Carbon Dioxide 19 L BUN 93 H Creatinine 2.6 H Glucose POC Glucose Lactic Acid Calcium Ionized Calcium Phosphorus Magnesium Direct Bilirubin AST ALT Alkaline Phosphatase Lactate Dehydrogenase Troponin T C-Reactive Protein Total Protein Albumin Prealbumin Triglycerides Cholesterol LDL Cholesterol Direct HDL Cholesterol 25-OH Vitamin D Total PTH Intact Urine pH Urine WBC (Auto) Urine Creatinine Urine Total Protein Fluid Total Protein Vancomycin Trough Rheumatoid Factor Complement C4 Miscellaneous Test Crossmatch 10/30/16 10/30/16 10/31/16 17:11 23:56 00:40 WBC RBC Hgb Hct MCV MCH MCHC RDW Plt Count Lymph % (Auto) [place] % (Auto) Lymph # [place] # Baso # Seg Neutrophils % Seg Neuts % (Manual) Lymphocytes % (Manual) Monocytes % (Manual) Eosinophils % (Manual) Basophils % (Manual) Nucleated RBC % Seg Neutrophils # Seg Neutrophils # Man Lymphocytes # (Manual) Monocytes # (Manual) Eosinophils # (Manual) Basophils # (Manual) PT INR Fibrinogen dRVVT Confirm Interp Factor V Activity POC ABG pH POC ABG pCO2 POC ABG pO2 ABG pO2 ABG HCO3 ABG Base Excess ABG Hemoglobin Oxyhemoglobin Sodium Potassium Chloride Carbon Dioxide BUN Creatinine Glucose POC Glucose 106 H 117 H 120 H Lactic Acid Calcium Ionized Calcium Phosphorus Magnesium Direct Bilirubin AST ALT Alkaline Phosphatase Lactate Dehydrogenase Troponin T C-Reactive Protein Total Protein Albumin Prealbumin Triglycerides Cholesterol LDL Cholesterol Direct HDL Cholesterol 25-OH Vitamin D Total PTH Intact Urine pH Urine WBC (Auto) Urine Creatinine Urine Total Protein Fluid Total Protein Vancomycin Trough Rheumatoid Factor Complement C4 Miscellaneous Test Crossmatch 10/31/16 10/31/16 10/31/16 05:43 07:15 07:15 WBC 12.1 H RBC 2.63 L Hgb 7.7 L Hct 23.3 L MCV MCH MCHC RDW 16.7 H Plt Count Lymph % (Auto) 11.7 L [place] % (Auto) 7.7 H Lymph # [place] # 0.9 H Baso # Seg Neutrophils % 78.0 H Seg Neuts % (Manual) Lymphocytes % (Manual) Monocytes % (Manual) Eosinophils % (Manual) Basophils % (Manual) Nucleated RBC % Seg Neutrophils # 9.4 H Seg Neutrophils # Man Lymphocytes # (Manual) Monocytes # (Manual) Eosinophils # (Manual) Basophils # (Manual) PT INR Fibrinogen dRVVT Confirm Interp Factor V Activity POC ABG pH POC ABG pCO2 POC ABG pO2 ABG pO2 ABG HCO3 ABG Base Excess ABG Hemoglobin Oxyhemoglobin Sodium Potassium Chloride 96.4 L Carbon Dioxide 21 L BUN 99 H Creatinine 2.6 H Glucose 144 H POC Glucose 125 H Lactic Acid Calcium Ionized Calcium Phosphorus 4.80 H Magnesium Direct Bilirubin AST ALT Alkaline Phosphatase Lactate Dehydrogenase Troponin T C-Reactive Protein Total Protein Albumin Prealbumin Triglycerides Cholesterol LDL Cholesterol Direct HDL Cholesterol 25-OH Vitamin D Total PTH Intact Urine pH Urine WBC (Auto) Urine Creatinine Urine Total Protein Fluid Total Protein Vancomycin Trough Rheumatoid Factor Complement C4 Miscellaneous Test Crossmatch 10/31/16 10/31/16 11/01/16 11:46 18:34 00:20 WBC RBC Hgb Hct MCV MCH MCHC RDW Plt Count Lymph % (Auto) [place] % (Auto) Lymph # [place] # Baso # Seg Neutrophils % Seg Neuts % (Manual) Lymphocytes % (Manual) Monocytes % (Manual) Eosinophils % (Manual) Basophils % (Manual) Nucleated RBC % Seg Neutrophils # Seg Neutrophils # Man Lymphocytes # (Manual) Monocytes # (Manual) Eosinophils # (Manual) Basophils # (Manual) PT INR Fibrinogen dRVVT Confirm Interp Factor V Activity POC ABG pH POC ABG pCO2 POC ABG pO2 ABG pO2 ABG HCO3 ABG Base Excess ABG Hemoglobin Oxyhemoglobin Sodium Potassium Chloride Carbon Dioxide BUN Creatinine Glucose POC Glucose 159 H 140 H 132 H Lactic Acid Calcium Ionized Calcium Phosphorus Magnesium Direct Bilirubin AST ALT Alkaline Phosphatase Lactate Dehydrogenase Troponin T C-Reactive Protein Total Protein Albumin Prealbumin Triglycerides Cholesterol LDL Cholesterol Direct HDL Cholesterol 25-OH Vitamin D Total PTH Intact Urine pH Urine WBC (Auto) Urine Creatinine Urine Total Protein Fluid Total Protein Vancomycin Trough Rheumatoid Factor Complement C4 Miscellaneous Test Crossmatch 11/01/16 11/01/16 11/01/16 04:55 04:55 06:11 WBC 11.2 H RBC 2.68 L Hgb 7.5 L Hct 23.7 L MCV MCH MCHC RDW 16.1 H Plt Count Lymph % (Auto) [place] % (Auto) 9.8 H Lymph # [place] # 1.1 H Baso # Seg Neutrophils % 70.8 H Seg Neuts % (Manual) Lymphocytes % (Manual) Monocytes % (Manual) Eosinophils % (Manual) Basophils % (Manual) Nucleated RBC % Seg Neutrophils # 7.9 H Seg Neutrophils # Man Lymphocytes # (Manual) Monocytes # (Manual) Eosinophils # (Manual) Basophils # (Manual) PT INR Fibrinogen dRVVT Confirm Interp Factor V Activity POC ABG pH POC ABG pCO2 POC ABG pO2 ABG pO2 ABG HCO3 ABG Base Excess ABG Hemoglobin Oxyhemoglobin Sodium Potassium 3.3 L D Chloride Carbon Dioxide BUN 61 H Creatinine 1.9 H Glucose 114 H POC Glucose 115 H Lactic Acid Calcium Ionized Calcium Phosphorus 1.80 L D Magnesium Direct Bilirubin AST ALT Alkaline Phosphatase Lactate Dehydrogenase Troponin T C-Reactive Protein Total Protein Albumin Prealbumin Triglycerides Cholesterol LDL Cholesterol Direct HDL Cholesterol 25-OH Vitamin D Total PTH Intact Urine pH Urine WBC (Auto) Urine Creatinine Urine Total Protein Fluid Total Protein Vancomycin Trough Rheumatoid Factor Complement C4 Miscellaneous Test Crossmatch 11/01/16 11/01/16 11/01/16 12:29 18:23 23:58 WBC RBC Hgb Hct MCV MCH MCHC RDW Plt Count Lymph % (Auto) [place] % (Auto) Lymph # [place] # Baso # Seg Neutrophils % Seg Neuts % (Manual) Lymphocytes % (Manual) Monocytes % (Manual) Eosinophils % (Manual) Basophils % (Manual) Nucleated RBC % Seg Neutrophils # Seg Neutrophils # Man Lymphocytes # (Manual) Monocytes # (Manual) Eosinophils # (Manual) Basophils # (Manual) PT INR Fibrinogen dRVVT Confirm Interp Factor V Activity POC ABG pH POC ABG pCO2 POC ABG pO2 ABG pO2 ABG HCO3 ABG Base Excess ABG Hemoglobin Oxyhemoglobin Sodium Potassium Chloride Carbon Dioxide BUN Creatinine Glucose POC Glucose 142 H 143 H 128 H Lactic Acid Calcium Ionized Calcium Phosphorus Magnesium Direct Bilirubin AST ALT Alkaline Phosphatase Lactate Dehydrogenase Troponin T C-Reactive Protein Total Protein Albumin Prealbumin Triglycerides Cholesterol LDL Cholesterol Direct HDL Cholesterol 25-OH Vitamin D Total PTH Intact Urine pH Urine WBC (Auto) Urine Creatinine Urine Total Protein Fluid Total Protein Vancomycin Trough Rheumatoid Factor Complement C4 Miscellaneous Test Crossmatch 11/02/16 11/02/16 11/02/16 04:16 05:29 11:58 WBC RBC Hgb Hct MCV MCH MCHC RDW Plt Count Lymph % (Auto) [place] % (Auto) Lymph # [place] # Baso # Seg Neutrophils % Seg Neuts % (Manual) Lymphocytes % (Manual) Monocytes % (Manual) Eosinophils % (Manual) Basophils % (Manual) Nucleated RBC % Seg Neutrophils # Seg Neutrophils # Man Lymphocytes # (Manual) Monocytes # (Manual) Eosinophils # (Manual) Basophils # (Manual) PT INR Fibrinogen dRVVT Confirm Interp Factor V Activity POC ABG pH POC ABG pCO2 POC ABG pO2 ABG pO2 ABG HCO3 ABG Base Excess ABG Hemoglobin Oxyhemoglobin Sodium Potassium 3.1 L Chloride Carbon Dioxide BUN 73 H Creatinine 2.3 H Glucose 112 H POC Glucose 135 H 149 H Lactic Acid Calcium Ionized Calcium Phosphorus Magnesium Direct Bilirubin AST ALT Alkaline Phosphatase Lactate Dehydrogenase Troponin T C-Reactive Protein Total Protein Albumin Prealbumin Triglycerides Cholesterol LDL Cholesterol Direct HDL Cholesterol 25-OH Vitamin D Total PTH Intact Urine pH Urine WBC (Auto) Urine Creatinine Urine Total Protein Fluid Total Protein Vancomycin Trough Rheumatoid Factor Complement C4 Miscellaneous Test Crossmatch 11/02/16 11/02/16 11/03/16 17:42 22:54 06:00 WBC RBC Hgb Hct MCV MCH MCHC RDW Plt Count Lymph % (Auto) [place] % (Auto) Lymph # [place] # Baso # Seg Neutrophils % Seg Neuts % (Manual) Lymphocytes % (Manual) Monocytes % (Manual) Eosinophils % (Manual) Basophils % (Manual) Nucleated RBC % Seg Neutrophils # Seg Neutrophils # Man Lymphocytes # (Manual) Monocytes # (Manual) Eosinophils # (Manual) Basophils # (Manual) PT INR Fibrinogen dRVVT Confirm Interp Factor V Activity POC ABG pH POC ABG pCO2 POC ABG pO2 ABG pO2 ABG HCO3 ABG Base Excess ABG Hemoglobin Oxyhemoglobin Sodium Potassium Chloride 96.7 L Carbon Dioxide BUN 41 H Creatinine 1.5 H Glucose 145 H POC Glucose 182 H 115 H Lactic Acid Calcium Ionized Calcium Phosphorus 1.60 L D Magnesium 1.50 L Direct Bilirubin AST ALT Alkaline Phosphatase Lactate Dehydrogenase Troponin T C-Reactive Protein Total Protein Albumin Prealbumin Triglycerides Cholesterol LDL Cholesterol Direct HDL Cholesterol 25-OH Vitamin D Total PTH Intact Urine pH Urine WBC (Auto) Urine Creatinine Urine Total Protein Fluid Total Protein Vancomycin Trough Rheumatoid Factor Complement C4 Miscellaneous Test Crossmatch 11/03/16 11/03/16 11/03/16 11:53 17:45 23:37 WBC RBC Hgb Hct MCV MCH MCHC RDW Plt Count Lymph % (Auto) [place] % (Auto) Lymph # [place] # Baso # Seg Neutrophils % Seg Neuts % (Manual) Lymphocytes % (Manual) Monocytes % (Manual) Eosinophils % (Manual) Basophils % (Manual) Nucleated RBC % Seg Neutrophils # Seg Neutrophils # Man Lymphocytes # (Manual) Monocytes # (Manual) Eosinophils # (Manual) Basophils # (Manual) PT INR Fibrinogen dRVVT Confirm Interp Factor V Activity POC ABG pH POC ABG pCO2 POC ABG pO2 ABG pO2 ABG HCO3 ABG Base Excess ABG Hemoglobin Oxyhemoglobin Sodium Potassium Chloride Carbon Dioxide BUN Creatinine Glucose POC Glucose 131 H 134 H 113 H Lactic Acid Calcium Ionized Calcium Phosphorus Magnesium Direct Bilirubin AST ALT Alkaline Phosphatase Lactate Dehydrogenase Troponin T C-Reactive Protein Total Protein Albumin Prealbumin Triglycerides Cholesterol LDL Cholesterol Direct HDL Cholesterol 25-OH Vitamin D Total PTH Intact Urine pH Urine WBC (Auto) Urine Creatinine Urine Total Protein Fluid Total Protein Vancomycin Trough Rheumatoid Factor Complement C4 Miscellaneous Test Crossmatch 11/04/16 11/04/16 11/04/16 05:41 06:00 12:10 WBC RBC Hgb Hct MCV MCH MCHC RDW Plt Count Lymph % (Auto) [place] % (Auto) Lymph # [place] # Baso # Seg Neutrophils % Seg Neuts % (Manual) Lymphocytes % (Manual) Monocytes % (Manual) Eosinophils % (Manual) Basophils % (Manual) Nucleated RBC % Seg Neutrophils # Seg Neutrophils # Man Lymphocytes # (Manual) Monocytes # (Manual) Eosinophils # (Manual) Basophils # (Manual) PT INR Fibrinogen dRVVT Confirm Interp Factor V Activity POC ABG pH POC ABG pCO2 POC ABG pO2 ABG pO2 ABG HCO3 ABG Base Excess ABG Hemoglobin Oxyhemoglobin Sodium Potassium Chloride 96.7 L Carbon Dioxide BUN 52 H Creatinine 1.9 H Glucose 126 H POC Glucose 137 H 191 H Lactic Acid Calcium Ionized Calcium Phosphorus Magnesium Direct Bilirubin AST ALT Alkaline Phosphatase Lactate Dehydrogenase Troponin T C-Reactive Protein Total Protein Albumin Prealbumin Triglycerides Cholesterol LDL Cholesterol Direct HDL Cholesterol 25-OH Vitamin D Total PTH Intact Urine pH Urine WBC (Auto) Urine Creatinine Urine Total Protein Fluid Total Protein Vancomycin Trough Rheumatoid Factor Complement C4 Miscellaneous Test Crossmatch 11/04/16 11/05/16 11/05/16 22:57 03:10 05:10 WBC RBC Hgb Hct MCV MCH MCHC RDW Plt Count Lymph % (Auto) [place] % (Auto) Lymph # [place] # Baso # Seg Neutrophils % Seg Neuts % (Manual) Lymphocytes % (Manual) Monocytes % (Manual) Eosinophils % (Manual) Basophils % (Manual) Nucleated RBC % Seg Neutrophils # Seg Neutrophils # Man Lymphocytes # (Manual) Monocytes # (Manual) Eosinophils # (Manual) Basophils # (Manual) PT INR Fibrinogen dRVVT Confirm Interp Factor V Activity POC ABG pH POC ABG pCO2 POC ABG pO2 ABG pO2 ABG HCO3 ABG Base Excess ABG Hemoglobin Oxyhemoglobin Sodium 136 L Potassium Chloride 97.2 L Carbon Dioxide BUN 32 H Creatinine 1.3 H Glucose 123 H POC Glucose 125 H 108 H Lactic Acid Calcium 7.8 L Ionized Calcium Phosphorus Magnesium Direct Bilirubin AST ALT Alkaline Phosphatase Lactate Dehydrogenase Troponin T C-Reactive Protein Total Protein Albumin Prealbumin Triglycerides Cholesterol LDL Cholesterol Direct HDL Cholesterol 25-OH Vitamin D Total PTH Intact Urine pH Urine WBC (Auto) Urine Creatinine Urine Total Protein Fluid Total Protein Vancomycin Trough Rheumatoid Factor Complement C4 Miscellaneous Test Crossmatch 11/05/16 11/05/16 11/05/16 12:23 13:09 13:25 WBC RBC Hgb Hct MCV MCH MCHC RDW Plt Count Lymph % (Auto) [place] % (Auto) Lymph # [place] # Baso # Seg Neutrophils % Seg Neuts % (Manual) Lymphocytes % (Manual) Monocytes % (Manual) Eosinophils % (Manual) Basophils % (Manual) Nucleated RBC % Seg Neutrophils # Seg Neutrophils # Man Lymphocytes # (Manual) Monocytes # (Manual) Eosinophils # (Manual) Basophils # (Manual) PT INR Fibrinogen dRVVT Confirm Interp Factor V Activity POC ABG pH POC ABG pCO2 POC ABG pO2 ABG pO2 ABG HCO3 ABG Base Excess ABG Hemoglobin Oxyhemoglobin Sodium Potassium Chloride Carbon Dioxide BUN Creatinine Glucose POC Glucose 124 H Lactic Acid Calcium Ionized Calcium Phosphorus Magnesium Direct Bilirubin AST ALT Alkaline Phosphatase Lactate Dehydrogenase Troponin T C-Reactive Protein 11.40 H Total Protein Albumin Prealbumin Triglycerides Cholesterol LDL Cholesterol Direct HDL Cholesterol 25-OH Vitamin D Total PTH Intact Urine pH 9.0 H Urine WBC (Auto) Urine Creatinine Urine Total Protein Fluid Total Protein Vancomycin Trough Rheumatoid Factor Complement C4 Miscellaneous Test Crossmatch 11/05/16 11/05/16 11/05/16 13:25 17:54 23:42 WBC RBC Hgb Hct MCV MCH MCHC RDW Plt Count Lymph % (Auto) [place] % (Auto) Lymph # [place] # Baso # Seg Neutrophils % Seg Neuts % (Manual) Lymphocytes % (Manual) Monocytes % (Manual) Eosinophils % (Manual) Basophils % (Manual) Nucleated RBC % Seg Neutrophils # Seg Neutrophils # Man Lymphocytes # (Manual) Monocytes # (Manual) Eosinophils # (Manual) Basophils # (Manual) PT INR Fibrinogen dRVVT Confirm Interp Factor V Activity POC ABG pH POC ABG pCO2 POC ABG pO2 ABG pO2 ABG HCO3 ABG Base Excess ABG Hemoglobin Oxyhemoglobin Sodium Potassium Chloride Carbon Dioxide BUN Creatinine Glucose POC Glucose 114 H 134 H Lactic Acid Calcium Ionized Calcium Phosphorus Magnesium Direct Bilirubin AST ALT Alkaline Phosphatase Lactate Dehydrogenase Troponin T C-Reactive Protein Total Protein Albumin Prealbumin Triglycerides Cholesterol LDL Cholesterol Direct HDL Cholesterol 25-OH Vitamin D Total PTH Intact Urine pH Urine WBC (Auto) Urine Creatinine Urine Total Protein Fluid Total Protein Vancomycin Trough Rheumatoid Factor Complement C4 Miscellaneous Test Flexitest 1 H Crossmatch 11/06/16 11/06/16 11/06/16 04:56 06:25 06:25 WBC RBC 2.50 L Hgb 7.3 L Hct 22.5 L MCV MCH MCHC RDW 16.9 H Plt Count Lymph % (Auto) [place] % (Auto) 10.5 H Lymph # [place] # 1.1 H Baso # Seg Neutrophils % Seg Neuts % (Manual) Lymphocytes % (Manual) Monocytes % (Manual) Eosinophils % (Manual) Basophils % (Manual) Nucleated RBC % Seg Neutrophils # Seg Neutrophils # Man Lymphocytes # (Manual) Monocytes # (Manual) Eosinophils # (Manual) Basophils # (Manual) PT INR Fibrinogen dRVVT Confirm Interp Factor V Activity POC ABG pH POC ABG pCO2 POC ABG pO2 ABG pO2 ABG HCO3 ABG Base Excess ABG Hemoglobin Oxyhemoglobin Sodium Potassium 5.1 H Chloride 95.9 L Carbon Dioxide BUN 52 H Creatinine 1.8 H Glucose 117 H POC Glucose 120 H Lactic Acid Calcium Ionized Calcium Phosphorus Magnesium Direct Bilirubin AST 103 H ALT 77 H Alkaline Phosphatase 285 H Lactate Dehydrogenase Troponin T C-Reactive Protein Total Protein 6.2 L Albumin 1.8 L Prealbumin 0.180 L Triglycerides Cholesterol LDL Cholesterol Direct HDL Cholesterol 25-OH Vitamin D Total PTH Intact Urine pH Urine WBC (Auto) Urine Creatinine Urine Total Protein Fluid Total Protein Vancomycin Trough Rheumatoid Factor Complement C4 Miscellaneous Test Crossmatch 11/06/16 11/06/16 11/06/16 11:56 17:14 23:52 WBC RBC Hgb Hct MCV MCH MCHC RDW Plt Count Lymph % (Auto) [place] % (Auto) Lymph # [place] # Baso # Seg Neutrophils % Seg Neuts % (Manual) Lymphocytes % (Manual) Monocytes % (Manual) Eosinophils % (Manual) Basophils % (Manual) Nucleated RBC % Seg Neutrophils # Seg Neutrophils # Man Lymphocytes # (Manual) Monocytes # (Manual) Eosinophils # (Manual) Basophils # (Manual) PT INR Fibrinogen dRVVT Confirm Interp Factor V Activity POC ABG pH POC ABG pCO2 POC ABG pO2 ABG pO2 ABG HCO3 ABG Base Excess ABG Hemoglobin Oxyhemoglobin Sodium Potassium Chloride Carbon Dioxide BUN Creatinine Glucose POC Glucose 141 H 125 H 130 H Lactic Acid Calcium Ionized Calcium Phosphorus Magnesium Direct Bilirubin AST ALT Alkaline Phosphatase Lactate Dehydrogenase Troponin T C-Reactive Protein Total Protein Albumin Prealbumin Triglycerides Cholesterol LDL Cholesterol Direct HDL Cholesterol 25-OH Vitamin D Total PTH Intact Urine pH Urine WBC (Auto) Urine Creatinine Urine Total Protein Fluid Total Protein Vancomycin Trough Rheumatoid Factor Complement C4 Miscellaneous Test Crossmatch 11/07/16 11/07/16 11/07/16 06:30 06:30 09:37 WBC RBC 2.18 L Hgb 6.3 L Hct 19.7 L* MCV MCH MCHC RDW 16.8 H Plt Count Lymph % (Auto) [place] % (Auto) 10.0 H Lymph # [place] # 1.0 H Baso # Seg Neutrophils % Seg Neuts % (Manual) Lymphocytes % (Manual) Monocytes % (Manual) Eosinophils % (Manual) Basophils % (Manual) Nucleated RBC % Seg Neutrophils # Seg Neutrophils # Man Lymphocytes # (Manual) Monocytes # (Manual) Eosinophils # (Manual) Basophils # (Manual) PT INR Fibrinogen dRVVT Confirm Interp Factor V Activity POC ABG pH POC ABG pCO2 POC ABG pO2 ABG pO2 ABG HCO3 ABG Base Excess ABG Hemoglobin Oxyhemoglobin Sodium 135 L Potassium Chloride 95.6 L Carbon Dioxide BUN 70 H Creatinine 2.0 H Glucose 126 H POC Glucose Lactic Acid Calcium Ionized Calcium Phosphorus Magnesium Direct Bilirubin AST ALT Alkaline Phosphatase Lactate Dehydrogenase Troponin T C-Reactive Protein Total Protein Albumin Prealbumin Triglycerides Cholesterol LDL Cholesterol Direct HDL Cholesterol 25-OH Vitamin D Total PTH Intact Urine pH Urine WBC (Auto) Urine Creatinine Urine Total Protein Fluid Total Protein Vancomycin Trough Rheumatoid Factor Complement C4 Miscellaneous Test Crossmatch See Detail 11/07/16 11/07/16 11/07/16 12:52 18:51 21:26 WBC RBC Hgb Hct MCV MCH MCHC RDW Plt Count Lymph % (Auto) [place] % (Auto) Lymph # [place] # Baso # Seg Neutrophils % Seg Neuts % (Manual) Lymphocytes % (Manual) Monocytes % (Manual) Eosinophils % (Manual) Basophils % (Manual) Nucleated RBC % Seg Neutrophils # Seg Neutrophils # Man Lymphocytes # (Manual) Monocytes # (Manual) Eosinophils # (Manual) Basophils # (Manual) PT INR Fibrinogen dRVVT Confirm Interp Factor V Activity POC ABG pH 7.523 H POC ABG pCO2 34.6 L POC ABG pO2 53 L ABG pO2 ABG HCO3 ABG Base Excess ABG Hemoglobin Oxyhemoglobin Sodium Potassium Chloride Carbon Dioxide BUN Creatinine Glucose POC Glucose 142 H 155 H Lactic Acid Calcium Ionized Calcium Phosphorus Magnesium Direct Bilirubin AST ALT Alkaline Phosphatase Lactate Dehydrogenase Troponin T C-Reactive Protein Total Protein Albumin Prealbumin Triglycerides Cholesterol LDL Cholesterol Direct HDL Cholesterol 25-OH Vitamin D Total PTH Intact Urine pH Urine WBC (Auto) Urine Creatinine Urine Total Protein Fluid Total Protein Vancomycin Trough Rheumatoid Factor Complement C4 Miscellaneous Test Crossmatch 11/07/16 11/08/16 11/08/16 21:34 13:03 23:37 WBC RBC 2.63 L Hgb 7.7 L Hct 22.7 L MCV MCH MCHC RDW 17.0 H Plt Count Lymph % (Auto) [place] % (Auto) Lymph # [place] # Baso # Seg Neutrophils % Seg Neuts % (Manual) Lymphocytes % (Manual) Monocytes % (Manual) Eosinophils % (Manual) Basophils % (Manual) Nucleated RBC % Seg Neutrophils # Seg Neutrophils # Man Lymphocytes # (Manual) Monocytes # (Manual) Eosinophils # (Manual) Basophils # (Manual) PT INR Fibrinogen dRVVT Confirm Interp Factor V Activity POC ABG pH 7.478 H POC ABG pCO2 34.0 L POC ABG pO2 50 L ABG pO2 ABG HCO3 ABG Base Excess ABG Hemoglobin Oxyhemoglobin Sodium Potassium Chloride Carbon Dioxide BUN Creatinine Glucose POC Glucose 113 H Lactic Acid Calcium Ionized Calcium Phosphorus Magnesium Direct Bilirubin AST ALT Alkaline Phosphatase Lactate Dehydrogenase Troponin T C-Reactive Protein Total Protein Albumin Prealbumin Triglycerides Cholesterol LDL Cholesterol Direct HDL Cholesterol 25-OH Vitamin D Total PTH Intact Urine pH Urine WBC (Auto) Urine Creatinine Urine Total Protein Fluid Total Protein Vancomycin Trough Rheumatoid Factor Complement C4 Miscellaneous Test Crossmatch 11/09/16 11/09/16 11/09/16 04:35 10:15 18:21 WBC RBC 2.68 L Hgb 7.8 L Hct 23.3 L MCV MCH MCHC RDW 17.0 H Plt Count Lymph % (Auto) [place] % (Auto) 12.1 H Lymph # [place] # 1.1 H Baso # Seg Neutrophils % Seg Neuts % (Manual) Lymphocytes % (Manual) Monocytes % (Manual) Eosinophils % (Manual) Basophils % (Manual) Nucleated RBC % Seg Neutrophils # Seg Neutrophils # Man Lymphocytes # (Manual) Monocytes # (Manual) Eosinophils # (Manual) Basophils # (Manual) PT INR Fibrinogen dRVVT Confirm Interp Factor V Activity POC ABG pH POC ABG pCO2 POC ABG pO2 ABG pO2 ABG HCO3 ABG Base Excess ABG Hemoglobin Oxyhemoglobin Sodium Potassium Chloride Carbon Dioxide BUN 51 H Creatinine 1.8 H Glucose POC Glucose 60 L Lactic Acid Calcium 8.3 L Ionized Calcium Phosphorus Magnesium Direct Bilirubin AST ALT Alkaline Phosphatase Lactate Dehydrogenase Troponin T C-Reactive Protein Total Protein Albumin Prealbumin Triglycerides Cholesterol LDL Cholesterol Direct HDL Cholesterol 25-OH Vitamin D Total PTH Intact Urine pH Urine WBC (Auto) Urine Creatinine Urine Total Protein Fluid Total Protein Vancomycin Trough Rheumatoid Factor Complement C4 Miscellaneous Test Crossmatch 11/09/16 11/10/16 11/10/16 18:55 07:00 11:51 WBC RBC Hgb Hct MCV MCH MCHC RDW Plt Count Lymph % (Auto) [place] % (Auto) Lymph # [place] # Baso # Seg Neutrophils % Seg Neuts % (Manual) Lymphocytes % (Manual) Monocytes % (Manual) Eosinophils % (Manual) Basophils % (Manual) Nucleated RBC % Seg Neutrophils # Seg Neutrophils # Man Lymphocytes # (Manual) Monocytes # (Manual) Eosinophils # (Manual) Basophils # (Manual) PT INR Fibrinogen dRVVT Confirm Interp Factor V Activity POC ABG pH POC ABG pCO2 POC ABG pO2 ABG pO2 ABG HCO3 ABG Base Excess ABG Hemoglobin Oxyhemoglobin Sodium Potassium 3.0 L D Chloride 97.4 L Carbon Dioxide BUN 28 H Creatinine 1.3 H Glucose POC Glucose 68 L 120 H Lactic Acid Calcium 7.8 L Ionized Calcium Phosphorus Magnesium Direct Bilirubin AST ALT Alkaline Phosphatase Lactate Dehydrogenase Troponin T C-Reactive Protein Total Protein Albumin Prealbumin Triglycerides Cholesterol LDL Cholesterol Direct HDL Cholesterol 25-OH Vitamin D Total PTH Intact Urine pH Urine WBC (Auto) Urine Creatinine Urine Total Protein Fluid Total Protein Vancomycin Trough Rheumatoid Factor Complement C4 Miscellaneous Test Crossmatch 11/10/16 11/11/16 11/11/16 14:20 06:59 06:59 WBC RBC 2.81 L Hgb 8.1 L Hct 24.4 L MCV MCH MCHC RDW 16.4 H Plt Count Lymph % (Auto) [place] % (Auto) 10.8 H Lymph # [place] # 1.0 H Baso # Seg Neutrophils % Seg Neuts % (Manual) Lymphocytes % (Manual) Monocytes % (Manual) Eosinophils % (Manual) Basophils % (Manual) Nucleated RBC % Seg Neutrophils # Seg Neutrophils # Man Lymphocytes # (Manual) Monocytes # (Manual) Eosinophils # (Manual) Basophils # (Manual) PT INR Fibrinogen dRVVT Confirm Interp Factor V Activity POC ABG pH POC ABG pCO2 POC ABG pO2 ABG pO2 ABG HCO3 ABG Base Excess ABG Hemoglobin Oxyhemoglobin Sodium Potassium Chloride Carbon Dioxide BUN Creatinine Glucose POC Glucose Lactic Acid Calcium Ionized Calcium Phosphorus Magnesium Direct Bilirubin AST ALT Alkaline Phosphatase Lactate Dehydrogenase 196 H Troponin T C-Reactive Protein Total Protein 6.1 L Albumin Prealbumin Triglycerides Cholesterol LDL Cholesterol Direct HDL Cholesterol 25-OH Vitamin D Total PTH Intact Urine pH Urine WBC (Auto) Urine Creatinine Urine Total Protein Fluid Total Protein < 3.0 L Vancomycin Trough Rheumatoid Factor Complement C4 Miscellaneous Test Crossmatch 11/11/16 11/11/16 11/12/16 06:59 09:50 04:00 WBC RBC Hgb Hct MCV MCH MCHC RDW Plt Count Lymph % (Auto) [place] % (Auto) Lymph # [place] # Baso # Seg Neutrophils % Seg Neuts % (Manual) Lymphocytes % (Manual) Monocytes % (Manual) Eosinophils % (Manual) Basophils % (Manual) Nucleated RBC % Seg Neutrophils # Seg Neutrophils # Man Lymphocytes # (Manual) Monocytes # (Manual) Eosinophils # (Manual) Basophils # (Manual) PT INR 1.18 H Fibrinogen dRVVT Confirm Interp Factor V Activity POC ABG pH POC ABG pCO2 POC ABG pO2 ABG pO2 ABG HCO3 ABG Base Excess ABG Hemoglobin Oxyhemoglobin Sodium 136 L 133 L Potassium Chloride 96.1 L 94.8 L Carbon Dioxide 21 L BUN 37 H 42 H Creatinine 1.8 H 2.0 H Glucose POC Glucose Lactic Acid Calcium Ionized Calcium Phosphorus Magnesium Direct Bilirubin AST ALT Alkaline Phosphatase Lactate Dehydrogenase Troponin T C-Reactive Protein Total Protein Albumin Prealbumin Triglycerides Cholesterol LDL Cholesterol Direct HDL Cholesterol 25-OH Vitamin D Total PTH Intact Urine pH Urine WBC (Auto) Urine Creatinine Urine Total Protein Fluid Total Protein Vancomycin Trough Rheumatoid Factor Complement C4 Miscellaneous Test Crossmatch 11/12/16 11/12/16 11/13/16 04:00 23:55 05:53 WBC RBC Hgb 8.9 L Hct 27.2 L MCV MCH MCHC RDW Plt Count Lymph % (Auto) [place] % (Auto) Lymph # [place] # Baso # Seg Neutrophils % Seg Neuts % (Manual) Lymphocytes % (Manual) Monocytes % (Manual) Eosinophils % (Manual) Basophils % (Manual) Nucleated RBC % Seg Neutrophils # Seg Neutrophils # Man Lymphocytes # (Manual) Monocytes # (Manual) Eosinophils # (Manual) Basophils # (Manual) PT INR Fibrinogen dRVVT Confirm Interp Factor V Activity POC ABG pH POC ABG pCO2 POC ABG pO2 ABG pO2 ABG HCO3 ABG Base Excess ABG Hemoglobin Oxyhemoglobin Sodium Potassium Chloride Carbon Dioxide BUN Creatinine Glucose POC Glucose 132 H 120 H Lactic Acid Calcium Ionized Calcium Phosphorus Magnesium Direct Bilirubin AST ALT Alkaline Phosphatase Lactate Dehydrogenase Troponin T C-Reactive Protein Total Protein Albumin Prealbumin Triglycerides Cholesterol LDL Cholesterol Direct HDL Cholesterol 25-OH Vitamin D Total PTH Intact Urine pH Urine WBC (Auto) Urine Creatinine Urine Total Protein Fluid Total Protein Vancomycin Trough Rheumatoid Factor Complement C4 Miscellaneous Test Crossmatch 11/13/16 11/13/16 11/13/16 11:43 17:09 23:41 WBC RBC Hgb Hct MCV MCH MCHC RDW Plt Count Lymph % (Auto) [place] % (Auto) Lymph # [place] # Baso # Seg Neutrophils % Seg Neuts % (Manual) Lymphocytes % (Manual) Monocytes % (Manual) Eosinophils % (Manual) Basophils % (Manual) Nucleated RBC % Seg Neutrophils # Seg Neutrophils # Man Lymphocytes # (Manual) Monocytes # (Manual) Eosinophils # (Manual) Basophils # (Manual) PT INR Fibrinogen dRVVT Confirm Interp Factor V Activity POC ABG pH POC ABG pCO2 POC ABG pO2 ABG pO2 ABG HCO3 ABG Base Excess ABG Hemoglobin Oxyhemoglobin Sodium Potassium Chloride Carbon Dioxide BUN Creatinine Glucose POC Glucose 114 H 113 H 108 H Lactic Acid Calcium Ionized Calcium Phosphorus Magnesium Direct Bilirubin AST ALT Alkaline Phosphatase Lactate Dehydrogenase Troponin T C-Reactive Protein Total Protein Albumin Prealbumin Triglycerides Cholesterol LDL Cholesterol Direct HDL Cholesterol 25-OH Vitamin D Total PTH Intact Urine pH Urine WBC (Auto) Urine Creatinine Urine Total Protein Fluid Total Protein Vancomycin Trough Rheumatoid Factor Complement C4 Miscellaneous Test Crossmatch 11/13/16 11/15/16 11/15/16 Unknown 00:37 03:30 WBC 11.2 H RBC 2.72 L Hgb 7.6 L Hct 23.4 L MCV MCH MCHC RDW 16.5 H Plt Count Lymph % (Auto) [place] % (Auto) Lymph # [place] # Baso # Seg Neutrophils % Seg Neuts % (Manual) Lymphocytes % (Manual) Monocytes % (Manual) Eosinophils % (Manual) Basophils % (Manual) Nucleated RBC % Seg Neutrophils # Seg Neutrophils # Man Lymphocytes # (Manual) Monocytes # (Manual) Eosinophils # (Manual) Basophils # (Manual) PT INR Fibrinogen dRVVT Confirm Interp Factor V Activity POC ABG pH POC ABG pCO2 POC ABG pO2 ABG pO2 ABG HCO3 ABG Base Excess ABG Hemoglobin Oxyhemoglobin Sodium 135 L Potassium Chloride 95.2 L Carbon Dioxide BUN 52 H Creatinine 2.2 H Glucose POC Glucose 108 H Lactic Acid Calcium Ionized Calcium Phosphorus Magnesium Direct Bilirubin AST ALT Alkaline Phosphatase Lactate Dehydrogenase Troponin T C-Reactive Protein Total Protein Albumin Prealbumin Triglycerides Cholesterol LDL Cholesterol Direct HDL Cholesterol 25-OH Vitamin D Total PTH Intact Urine pH Urine WBC (Auto) Urine Creatinine Urine Total Protein Fluid Total Protein Vancomycin Trough Rheumatoid Factor Complement C4 Miscellaneous Test Crossmatch 11/15/16 11/15/16 11/15/16 03:30 05:04 11:50 WBC RBC Hgb Hct MCV MCH MCHC RDW Plt Count Lymph % (Auto) [place] % (Auto) Lymph # [place] # Baso # Seg Neutrophils % Seg Neuts % (Manual) Lymphocytes % (Manual) Monocytes % (Manual) Eosinophils % (Manual) Basophils % (Manual) Nucleated RBC % Seg Neutrophils # Seg Neutrophils # Man Lymphocytes # (Manual) Monocytes # (Manual) Eosinophils # (Manual) Basophils # (Manual) PT INR Fibrinogen dRVVT Confirm Interp Factor V Activity POC ABG pH POC ABG pCO2 POC ABG pO2 ABG pO2 ABG HCO3 ABG Base Excess ABG Hemoglobin Oxyhemoglobin Sodium Potassium 3.4 L Chloride Carbon Dioxide BUN 25 H Creatinine 1.5 H Glucose 103 H POC Glucose 121 H 144 H Lactic Acid Calcium Ionized Calcium Phosphorus Magnesium Direct Bilirubin AST ALT Alkaline Phosphatase Lactate Dehydrogenase Troponin T C-Reactive Protein Total Protein Albumin Prealbumin Triglycerides Cholesterol LDL Cholesterol Direct HDL Cholesterol 25-OH Vitamin D Total PTH Intact Urine pH Urine WBC (Auto) Urine Creatinine Urine Total Protein Fluid Total Protein Vancomycin Trough Rheumatoid Factor Complement C4 Miscellaneous Test Crossmatch 11/15/16 11/15/16 11/16/16 21:28 23:20 11:44 WBC RBC Hgb Hct MCV MCH MCHC RDW Plt Count Lymph % (Auto) [place] % (Auto) Lymph # [place] # Baso # Seg Neutrophils % Seg Neuts % (Manual) Lymphocytes % (Manual) Monocytes % (Manual) Eosinophils % (Manual) Basophils % (Manual) Nucleated RBC % Seg Neutrophils # Seg Neutrophils # Man Lymphocytes # (Manual) Monocytes # (Manual) Eosinophils # (Manual) Basophils # (Manual) PT INR Fibrinogen dRVVT Confirm Interp Factor V Activity POC ABG pH 7.462 H POC ABG pCO2 POC ABG pO2 71 L ABG pO2 ABG HCO3 ABG Base Excess ABG Hemoglobin Oxyhemoglobin Sodium Potassium Chloride Carbon Dioxide BUN Creatinine Glucose POC Glucose 116 H 133 H Lactic Acid Calcium Ionized Calcium Phosphorus Magnesium Direct Bilirubin AST ALT Alkaline Phosphatase Lactate Dehydrogenase Troponin T C-Reactive Protein Total Protein Albumin Prealbumin Triglycerides Cholesterol LDL Cholesterol Direct HDL Cholesterol 25-OH Vitamin D Total PTH Intact Urine pH Urine WBC (Auto) Urine Creatinine Urine Total Protein Fluid Total Protein Vancomycin Trough Rheumatoid Factor Complement C4 Miscellaneous Test Crossmatch 11/16/16 11/16/16 11/16/16 12:20 17:05 23:35 WBC 11.7 H RBC 2.73 L Hgb 7.6 L Hct 23.7 L MCV MCH MCHC RDW 16.6 H Plt Count Lymph % (Auto) [place] % (Auto) Lymph # [place] # Baso # Seg Neutrophils % Seg Neuts % (Manual) Lymphocytes % (Manual) Monocytes % (Manual) Eosinophils % (Manual) Basophils % (Manual) Nucleated RBC % Seg Neutrophils # Seg Neutrophils # Man Lymphocytes # (Manual) Monocytes # (Manual) Eosinophils # (Manual) Basophils # (Manual) PT INR Fibrinogen dRVVT Confirm Interp Factor V Activity POC ABG pH POC ABG pCO2 POC ABG pO2 ABG pO2 ABG HCO3 ABG Base Excess ABG Hemoglobin Oxyhemoglobin Sodium Potassium Chloride Carbon Dioxide BUN Creatinine Glucose POC Glucose 154 H 125 H Lactic Acid Calcium Ionized Calcium Phosphorus Magnesium Direct Bilirubin AST ALT Alkaline Phosphatase Lactate Dehydrogenase Troponin T C-Reactive Protein Total Protein Albumin Prealbumin Triglycerides Cholesterol LDL Cholesterol Direct HDL Cholesterol 25-OH Vitamin D Total PTH Intact Urine pH Urine WBC (Auto) Urine Creatinine Urine Total Protein Fluid Total Protein Vancomycin Trough Rheumatoid Factor Complement C4 Miscellaneous Test Crossmatch 11/17/16 11/17/16 11/17/16 03:20 03:20 03:20 WBC RBC 2.55 L Hgb 7.3 L Hct 21.9 L MCV MCH MCHC RDW 16.6 H Plt Count Lymph % (Auto) [place] % (Auto) 11.5 H Lymph # [place] # 1.1 H Baso # Seg Neutrophils % Seg Neuts % (Manual) Lymphocytes % (Manual) Monocytes % (Manual) Eosinophils % (Manual) Basophils % (Manual) Nucleated RBC % Seg Neutrophils # Seg Neutrophils # Man Lymphocytes # (Manual) Monocytes # (Manual) Eosinophils # (Manual) Basophils # (Manual) PT 16.8 H INR 1.37 H Fibrinogen dRVVT Confirm Interp Factor V Activity POC ABG pH POC ABG pCO2 POC ABG pO2 ABG pO2 ABG HCO3 ABG Base Excess ABG Hemoglobin Oxyhemoglobin Sodium Potassium 3.5 L Chloride Carbon Dioxide BUN 21 H Creatinine Glucose POC Glucose Lactic Acid Calcium 7.9 L Ionized Calcium Phosphorus Magnesium Direct Bilirubin AST ALT Alkaline Phosphatase Lactate Dehydrogenase Troponin T C-Reactive Protein Total Protein Albumin Prealbumin Triglycerides Cholesterol LDL Cholesterol Direct HDL Cholesterol 25-OH Vitamin D Total PTH Intact Urine pH Urine WBC (Auto) Urine Creatinine Urine Total Protein Fluid Total Protein Vancomycin Trough Rheumatoid Factor Complement C4 Miscellaneous Test Crossmatch 11/17/16 11/17/16 11/17/16 06:34 11:21 21:22 WBC RBC Hgb Hct MCV MCH MCHC RDW Plt Count Lymph % (Auto) [place] % (Auto) Lymph # [place] # Baso # Seg Neutrophils % Seg Neuts % (Manual) Lymphocytes % (Manual) Monocytes % (Manual) Eosinophils % (Manual) Basophils % (Manual) Nucleated RBC % Seg Neutrophils # Seg Neutrophils # Man Lymphocytes # (Manual) Monocytes # (Manual) Eosinophils # (Manual) Basophils # (Manual) PT INR Fibrinogen dRVVT Confirm Interp Factor V Activity POC ABG pH 7.467 H POC ABG pCO2 POC ABG pO2 73 L ABG pO2 ABG HCO3 ABG Base Excess ABG Hemoglobin Oxyhemoglobin Sodium Potassium Chloride Carbon Dioxide BUN Creatinine Glucose POC Glucose 121 H 119 H Lactic Acid Calcium Ionized Calcium Phosphorus Magnesium Direct Bilirubin AST ALT Alkaline Phosphatase Lactate Dehydrogenase Troponin T C-Reactive Protein Total Protein Albumin Prealbumin Triglycerides Cholesterol LDL Cholesterol Direct HDL Cholesterol 25-OH Vitamin D Total PTH Intact Urine pH Urine WBC (Auto) Urine Creatinine Urine Total Protein Fluid Total Protein Vancomycin Trough Rheumatoid Factor Complement C4 Miscellaneous Test Crossmatch 11/18/16 11/18/16 11/19/16 12:16 17:19 00:00 WBC RBC Hgb Hct MCV MCH MCHC RDW Plt Count Lymph % (Auto) [place] % (Auto) Lymph # [place] # Baso # Seg Neutrophils % Seg Neuts % (Manual) Lymphocytes % (Manual) Monocytes % (Manual) Eosinophils % (Manual) Basophils % (Manual) Nucleated RBC % Seg Neutrophils # Seg Neutrophils # Man Lymphocytes # (Manual) Monocytes # (Manual) Eosinophils # (Manual) Basophils # (Manual) PT INR Fibrinogen dRVVT Confirm Interp Factor V Activity POC ABG pH POC ABG pCO2 POC ABG pO2 ABG pO2 ABG HCO3 ABG Base Excess ABG Hemoglobin Oxyhemoglobin Sodium Potassium Chloride Carbon Dioxide BUN Creatinine Glucose POC Glucose 124 H 162 H 139 H Lactic Acid Calcium Ionized Calcium Phosphorus Magnesium Direct Bilirubin AST ALT Alkaline Phosphatase Lactate Dehydrogenase Troponin T C-Reactive Protein Total Protein Albumin Prealbumin Triglycerides Cholesterol LDL Cholesterol Direct HDL Cholesterol 25-OH Vitamin D Total PTH Intact Urine pH Urine WBC (Auto) Urine Creatinine Urine Total Protein Fluid Total Protein Vancomycin Trough Rheumatoid Factor Complement C4 Miscellaneous Test Crossmatch 11/19/16 11/19/16 11/20/16 05:00 12:43 00:40 WBC RBC Hgb Hct MCV MCH MCHC RDW Plt Count Lymph % (Auto) [place] % (Auto) Lymph # [place] # Baso # Seg Neutrophils % Seg Neuts % (Manual) Lymphocytes % (Manual) Monocytes % (Manual) Eosinophils % (Manual) Basophils % (Manual) Nucleated RBC % Seg Neutrophils # Seg Neutrophils # Man Lymphocytes # (Manual) Monocytes # (Manual) Eosinophils # (Manual) Basophils # (Manual) PT INR Fibrinogen dRVVT Confirm Interp Factor V Activity POC ABG pH POC ABG pCO2 POC ABG pO2 ABG pO2 ABG HCO3 ABG Base Excess ABG Hemoglobin Oxyhemoglobin Sodium Potassium Chloride Carbon Dioxide BUN Creatinine Glucose POC Glucose 110 H 125 H 136 H Lactic Acid Calcium Ionized Calcium Phosphorus Magnesium Direct Bilirubin AST ALT Alkaline Phosphatase Lactate Dehydrogenase Troponin T C-Reactive Protein Total Protein Albumin Prealbumin Triglycerides Cholesterol LDL Cholesterol Direct HDL Cholesterol 25-OH Vitamin D Total PTH Intact Urine pH Urine WBC (Auto) Urine Creatinine Urine Total Protein Fluid Total Protein Vancomycin Trough Rheumatoid Factor Complement C4 Miscellaneous Test Crossmatch 11/20/16 11/20/16 11/20/16 05:00 05:00 05:51 WBC 13.1 H RBC 2.74 L Hgb 7.7 L Hct 23.6 L MCV MCH MCHC RDW 16.9 H Plt Count Lymph % (Auto) [place] % (Auto) 10.8 H Lymph # [place] # 1.4 H Baso # Seg Neutrophils % Seg Neuts % (Manual) Lymphocytes % (Manual) Monocytes % (Manual) Eosinophils % (Manual) Basophils % (Manual) Nucleated RBC % Seg Neutrophils # 7.9 H Seg Neutrophils # Man Lymphocytes # (Manual) Monocytes # (Manual) Eosinophils # (Manual) Basophils # (Manual) PT INR Fibrinogen dRVVT Confirm Interp Factor V Activity POC ABG pH POC ABG pCO2 POC ABG pO2 ABG pO2 ABG HCO3 ABG Base Excess ABG Hemoglobin Oxyhemoglobin Sodium Potassium Chloride Carbon Dioxide BUN 31 H Creatinine 1.8 H Glucose 129 H POC Glucose 133 H Lactic Acid Calcium Ionized Calcium Phosphorus Magnesium Direct Bilirubin AST ALT Alkaline Phosphatase Lactate Dehydrogenase Troponin T C-Reactive Protein Total Protein Albumin Prealbumin Triglycerides Cholesterol LDL Cholesterol Direct HDL Cholesterol 25-OH Vitamin D Total PTH Intact Urine pH Urine WBC (Auto) Urine Creatinine Urine Total Protein Fluid Total Protein Vancomycin Trough Rheumatoid Factor Complement C4 Miscellaneous Test Crossmatch 11/20/16 11/20/16 11/21/16 12:40 18:10 01:20 WBC RBC Hgb Hct MCV MCH MCHC RDW Plt Count Lymph % (Auto) [place] % (Auto) Lymph # [place] # Baso # Seg Neutrophils % Seg Neuts % (Manual) Lymphocytes % (Manual) Monocytes % (Manual) Eosinophils % (Manual) Basophils % (Manual) Nucleated RBC % Seg Neutrophils # Seg Neutrophils # Man Lymphocytes # (Manual) Monocytes # (Manual) Eosinophils # (Manual) Basophils # (Manual) PT INR Fibrinogen dRVVT Confirm Interp Factor V Activity POC ABG pH POC ABG pCO2 POC ABG pO2 ABG pO2 ABG HCO3 ABG Base Excess ABG Hemoglobin Oxyhemoglobin Sodium Potassium Chloride Carbon Dioxide BUN Creatinine Glucose POC Glucose 134 H 138 H 136 H Lactic Acid Calcium Ionized Calcium Phosphorus Magnesium Direct Bilirubin AST ALT Alkaline Phosphatase Lactate Dehydrogenase Troponin T C-Reactive Protein Total Protein Albumin Prealbumin Triglycerides Cholesterol LDL Cholesterol Direct HDL Cholesterol 25-OH Vitamin D Total PTH Intact Urine pH Urine WBC (Auto) Urine Creatinine Urine Total Protein Fluid Total Protein Vancomycin Trough Rheumatoid Factor Complement C4 Miscellaneous Test Crossmatch 11/21/16 11/21/16 11/21/16 07:04 07:45 07:45 WBC 22.0 H RBC 2.91 L Hgb 8.2 L Hct 25.4 L MCV MCH MCHC RDW 17.1 H Plt Count Lymph % (Auto) [place] % (Auto) Lymph # [place] # Baso # Seg Neutrophils % Seg Neuts % (Manual) Lymphocytes % (Manual) 8.0 L Monocytes % (Manual) Eosinophils % (Manual) Basophils % (Manual) Nucleated RBC % Seg Neutrophils # Seg Neutrophils # Man 14.7 H Lymphocytes # (Manual) Monocytes # (Manual) 1.1 H Eosinophils # (Manual) Basophils # (Manual) PT INR Fibrinogen dRVVT Confirm Interp Factor V Activity POC ABG pH POC ABG pCO2 POC ABG pO2 ABG pO2 ABG HCO3 ABG Base Excess ABG Hemoglobin Oxyhemoglobin Sodium Potassium Chloride Carbon Dioxide BUN 42 H Creatinine 2.0 H Glucose POC Glucose 108 H Lactic Acid Calcium Ionized Calcium Phosphorus Magnesium Direct Bilirubin AST ALT Alkaline Phosphatase Lactate Dehydrogenase Troponin T C-Reactive Protein Total Protein Albumin Prealbumin Triglycerides Cholesterol LDL Cholesterol Direct HDL Cholesterol 25-OH Vitamin D Total PTH Intact Urine pH Urine WBC (Auto) Urine Creatinine Urine Total Protein Fluid Total Protein Vancomycin Trough Rheumatoid Factor Complement C4 Miscellaneous Test Crossmatch 11/21/16 11/21/16 11/21/16 08:38 10:09 11:20 WBC RBC Hgb Hct MCV MCH MCHC RDW Plt Count Lymph % (Auto) [place] % (Auto) Lymph # [place] # Baso # Seg Neutrophils % Seg Neuts % (Manual) Lymphocytes % (Manual) Monocytes % (Manual) Eosinophils % (Manual) Basophils % (Manual) Nucleated RBC % Seg Neutrophils # Seg Neutrophils # Man Lymphocytes # (Manual) Monocytes # (Manual) Eosinophils # (Manual) Basophils # (Manual) PT INR Fibrinogen dRVVT Confirm Interp Factor V Activity POC ABG pH 7.346 L POC ABG pCO2 34.4 L POC ABG pO2 314 H ABG pO2 ABG HCO3 ABG Base Excess ABG Hemoglobin Oxyhemoglobin Sodium Potassium Chloride Carbon Dioxide BUN Creatinine Glucose POC Glucose 195 H 153 H Lactic Acid Calcium Ionized Calcium Phosphorus Magnesium Direct Bilirubin AST ALT Alkaline Phosphatase Lactate Dehydrogenase Troponin T C-Reactive Protein Total Protein Albumin Prealbumin Triglycerides Cholesterol LDL Cholesterol Direct HDL Cholesterol 25-OH Vitamin D Total PTH Intact Urine pH Urine WBC (Auto) Urine Creatinine Urine Total Protein Fluid Total Protein Vancomycin Trough Rheumatoid Factor Complement C4 Miscellaneous Test Crossmatch 11/21/16 11/22/16 11/22/16 23:37 04:48 05:00 WBC 29.7 H RBC 2.73 L Hgb 7.5 L Hct 24.2 L MCV MCH 27 L MCHC RDW 17.4 H Plt Count Lymph % (Auto) [place] % (Auto) Lymph # [place] # Baso # Seg Neutrophils % Seg Neuts % (Manual) Lymphocytes % (Manual) 7.0 L Monocytes % (Manual) Eosinophils % (Manual) Basophils % (Manual) Nucleated RBC % Seg Neutrophils # Seg Neutrophils # Man 15.4 H Lymphocytes # (Manual) Monocytes # (Manual) Eosinophils # (Manual) Basophils # (Manual) PT INR Fibrinogen dRVVT Confirm Interp Factor V Activity POC ABG pH POC ABG pCO2 24.6 L POC ABG pO2 189 H ABG pO2 ABG HCO3 ABG Base Excess ABG Hemoglobin Oxyhemoglobin Sodium Potassium Chloride Carbon Dioxide BUN Creatinine Glucose POC Glucose 65 L Lactic Acid Calcium Ionized Calcium Phosphorus Magnesium Direct Bilirubin AST ALT Alkaline Phosphatase Lactate Dehydrogenase Troponin T C-Reactive Protein Total Protein Albumin Prealbumin Triglycerides Cholesterol LDL Cholesterol Direct HDL Cholesterol 25-OH Vitamin D Total PTH Intact Urine pH Urine WBC (Auto) Urine Creatinine Urine Total Protein Fluid Total Protein Vancomycin Trough Rheumatoid Factor Complement C4 Miscellaneous Test Crossmatch 11/22/16 11/23/16 11/23/16 05:00 03:44 04:06 WBC RBC 2.52 L Hgb 7.2 L Hct 21.5 L MCV MCH MCHC RDW 17.1 H Plt Count Lymph % (Auto) [place] % (Auto) 12.4 H Lymph # [place] # 1.4 H Baso # Seg Neutrophils % Seg Neuts % (Manual) Lymphocytes % (Manual) Monocytes % (Manual) Eosinophils % (Manual) Basophils % (Manual) Nucleated RBC % Seg Neutrophils # Seg Neutrophils # Man Lymphocytes # (Manual) Monocytes # (Manual) Eosinophils # (Manual) Basophils # (Manual) PT INR Fibrinogen dRVVT Confirm Interp Factor V Activity POC ABG pH 7.493 H POC ABG pCO2 29.5 L POC ABG pO2 49 L ABG pO2 ABG HCO3 ABG Base Excess ABG Hemoglobin Oxyhemoglobin Sodium 134 L Potassium Chloride 95.9 L Carbon Dioxide 14 L D BUN 51 H Creatinine 2.6 H Glucose POC Glucose Lactic Acid Calcium Ionized Calcium Phosphorus Magnesium Direct Bilirubin AST ALT Alkaline Phosphatase Lactate Dehydrogenase Troponin T C-Reactive Protein Total Protein Albumin Prealbumin Triglycerides Cholesterol LDL Cholesterol Direct HDL Cholesterol 25-OH Vitamin D Total PTH Intact Urine pH Urine WBC (Auto) Urine Creatinine Urine Total Protein Fluid Total Protein Vancomycin Trough Rheumatoid Factor Complement C4 Miscellaneous Test Crossmatch 11/23/16 11/23/16 11/24/16 04:06 11:29 06:39 WBC RBC Hgb Hct MCV MCH MCHC RDW Plt Count Lymph % (Auto) [place] % (Auto) Lymph # [place] # Baso # Seg Neutrophils % Seg Neuts % (Manual) Lymphocytes % (Manual) Monocytes % (Manual) Eosinophils % (Manual) Basophils % (Manual) Nucleated RBC % Seg Neutrophils # Seg Neutrophils # Man Lymphocytes # (Manual) Monocytes # (Manual) Eosinophils # (Manual) Basophils # (Manual) PT INR Fibrinogen dRVVT Confirm Interp Factor V Activity POC ABG pH POC ABG pCO2 POC ABG pO2 ABG pO2 ABG HCO3 ABG Base Excess ABG Hemoglobin Oxyhemoglobin Sodium 136 L Potassium Chloride 95.2 L Carbon Dioxide BUN 60 H Creatinine 2.9 H Glucose POC Glucose 69 L 305 H Lactic Acid Calcium Ionized Calcium Phosphorus Magnesium 1.60 L Direct Bilirubin AST ALT Alkaline Phosphatase Lactate Dehydrogenase Troponin T C-Reactive Protein Total Protein Albumin Prealbumin Triglycerides Cholesterol LDL Cholesterol Direct HDL Cholesterol 25-OH Vitamin D Total PTH Intact Urine pH Urine WBC (Auto) Urine Creatinine Urine Total Protein Fluid Total Protein Vancomycin Trough Rheumatoid Factor Complement C4 Miscellaneous Test Crossmatch 11/24/16 11/24/16 11/24/16 06:43 08:08 08:08 WBC 11.2 H RBC 2.47 L Hgb 6.8 L Hct 20.6 L MCV MCH MCHC RDW 17.0 H Plt Count Lymph % (Auto) [place] % (Auto) 10.3 H Lymph # [place] # 1.2 H Baso # Seg Neutrophils % Seg Neuts % (Manual) Lymphocytes % (Manual) Monocytes % (Manual) Eosinophils % (Manual) Basophils % (Manual) Nucleated RBC % Seg Neutrophils # Seg Neutrophils # Man Lymphocytes # (Manual) Monocytes # (Manual) Eosinophils # (Manual) Basophils # (Manual) PT INR Fibrinogen dRVVT Confirm Interp Factor V Activity POC ABG pH POC ABG pCO2 POC ABG pO2 ABG pO2 ABG HCO3 ABG Base Excess ABG Hemoglobin Oxyhemoglobin Sodium 135 L Potassium Chloride 96.3 L Carbon Dioxide BUN 61 H Creatinine 3.1 H Glucose POC Glucose 62 L Lactic Acid Calcium 8.2 L Ionized Calcium Phosphorus Magnesium Direct Bilirubin AST ALT Alkaline Phosphatase Lactate Dehydrogenase Troponin T C-Reactive Protein Total Protein Albumin Prealbumin Triglycerides Cholesterol LDL Cholesterol Direct HDL Cholesterol 25-OH Vitamin D Total PTH Intact Urine pH Urine WBC (Auto) Urine Creatinine Urine Total Protein Fluid Total Protein Vancomycin Trough Rheumatoid Factor Complement C4 Miscellaneous Test Crossmatch 11/24/16 11/24/16 11/24/16 08:34 11:20 12:41 WBC RBC Hgb Hct MCV MCH MCHC RDW Plt Count Lymph % (Auto) [place] % (Auto) Lymph # [place] # Baso # Seg Neutrophils % Seg Neuts % (Manual) Lymphocytes % (Manual) Monocytes % (Manual) Eosinophils % (Manual) Basophils % (Manual) Nucleated RBC % Seg Neutrophils # Seg Neutrophils # Man Lymphocytes # (Manual) Monocytes # (Manual) Eosinophils # (Manual) Basophils # (Manual) PT INR Fibrinogen dRVVT Confirm Interp Factor V Activity POC ABG pH POC ABG pCO2 POC ABG pO2 ABG pO2 ABG HCO3 ABG Base Excess ABG Hemoglobin Oxyhemoglobin Sodium Potassium Chloride Carbon Dioxide BUN Creatinine Glucose POC Glucose 108 H Lactic Acid Calcium Ionized Calcium Phosphorus Magnesium 1.60 L Direct Bilirubin AST ALT Alkaline Phosphatase Lactate Dehydrogenase Troponin T C-Reactive Protein Total Protein Albumin Prealbumin Triglycerides Cholesterol LDL Cholesterol Direct HDL Cholesterol 25-OH Vitamin D Total PTH Intact Urine pH Urine WBC (Auto) Urine Creatinine Urine Total Protein Fluid Total Protein Vancomycin Trough Rheumatoid Factor Complement C4 Miscellaneous Test Crossmatch See Detail 11/25/16 11/25/16 11/25/16 00:03 04:42 04:42 WBC RBC 3.03 L Hgb 8.6 L Hct 25.3 L MCV MCH MCHC RDW 16.2 H Plt Count Lymph % (Auto) [place] % (Auto) 8.1 H Lymph # [place] # Baso # Seg Neutrophils % 71.3 H Seg Neuts % (Manual) Lymphocytes % (Manual) Monocytes % (Manual) Eosinophils % (Manual) Basophils % (Manual) Nucleated RBC % Seg Neutrophils # Seg Neutrophils # Man Lymphocytes # (Manual) Monocytes # (Manual) Eosinophils # (Manual) Basophils # (Manual) PT INR Fibrinogen dRVVT Confirm Interp Factor V Activity POC ABG pH POC ABG pCO2 POC ABG pO2 ABG pO2 ABG HCO3 ABG Base Excess ABG Hemoglobin Oxyhemoglobin Sodium Potassium Chloride Carbon Dioxide BUN 61 H Creatinine 3.0 H Glucose 102 H POC Glucose 113 H Lactic Acid Calcium 8.2 L Ionized Calcium Phosphorus Magnesium Direct Bilirubin AST ALT Alkaline Phosphatase 142 H Lactate Dehydrogenase Troponin T C-Reactive Protein Total Protein 5.7 L Albumin 1.5 L Prealbumin Triglycerides Cholesterol LDL Cholesterol Direct HDL Cholesterol 25-OH Vitamin D Total PTH Intact Urine pH Urine WBC (Auto) Urine Creatinine Urine Total Protein Fluid Total Protein Vancomycin Trough Rheumatoid Factor Complement C4 Miscellaneous Test Crossmatch 11/25/16 11/25/16 11/25/16 05:12 11:31 14:12 WBC RBC Hgb Hct MCV MCH MCHC RDW Plt Count Lymph % (Auto) [place] % (Auto) Lymph # [place] # Baso # Seg Neutrophils % Seg Neuts % (Manual) Lymphocytes % (Manual) Monocytes % (Manual) Eosinophils % (Manual) Basophils % (Manual) Nucleated RBC % Seg Neutrophils # Seg Neutrophils # Man Lymphocytes # (Manual) Monocytes # (Manual) Eosinophils # (Manual) Basophils # (Manual) PT INR Fibrinogen dRVVT Confirm Interp Factor V Activity POC ABG pH 7.487 H POC ABG pCO2 POC ABG pO2 153 H ABG pO2 ABG HCO3 ABG Base Excess ABG Hemoglobin Oxyhemoglobin Sodium Potassium Chloride Carbon Dioxide BUN Creatinine Glucose POC Glucose 131 H 140 H Lactic Acid Calcium Ionized Calcium Phosphorus Magnesium Direct Bilirubin AST ALT Alkaline Phosphatase Lactate Dehydrogenase Troponin T C-Reactive Protein Total Protein Albumin Prealbumin Triglycerides Cholesterol LDL Cholesterol Direct HDL Cholesterol 25-OH Vitamin D Total PTH Intact Urine pH Urine WBC (Auto) Urine Creatinine Urine Total Protein Fluid Total Protein Vancomycin Trough Rheumatoid Factor Complement C4 Miscellaneous Test Crossmatch 11/25/16 11/26/16 11/26/16 17:23 00:09 05:13 WBC RBC 2.94 L Hgb 8.4 L Hct 24.6 L MCV MCH MCHC RDW 16.4 H Plt Count Lymph % (Auto) [place] % (Auto) 12.3 H Lymph # [place] # 1.1 H Baso # Seg Neutrophils % Seg Neuts % (Manual) Lymphocytes % (Manual) Monocytes % (Manual) Eosinophils % (Manual) Basophils % (Manual) Nucleated RBC % Seg Neutrophils # Seg Neutrophils # Man Lymphocytes # (Manual) Monocytes # (Manual) Eosinophils # (Manual) Basophils # (Manual) PT INR Fibrinogen dRVVT Confirm Interp Factor V Activity POC ABG pH POC ABG pCO2 POC ABG pO2 ABG pO2 ABG HCO3 ABG Base Excess ABG Hemoglobin Oxyhemoglobin Sodium Potassium Chloride Carbon Dioxide BUN Creatinine Glucose POC Glucose 146 H 112 H Lactic Acid Calcium Ionized Calcium Phosphorus Magnesium Direct Bilirubin AST ALT Alkaline Phosphatase Lactate Dehydrogenase Troponin T C-Reactive Protein Total Protein Albumin Prealbumin Triglycerides Cholesterol LDL Cholesterol Direct HDL Cholesterol 25-OH Vitamin D Total PTH Intact Urine pH Urine WBC (Auto) Urine Creatinine Urine Total Protein Fluid Total Protein Vancomycin Trough Rheumatoid Factor Complement C4 Miscellaneous Test Crossmatch 11/26/16 11/26/16 11/26/16 05:13 05:28 11:53 WBC RBC Hgb Hct MCV MCH MCHC RDW Plt Count Lymph % (Auto) [place] % (Auto) Lymph # [place] # Baso # Seg Neutrophils % Seg Neuts % (Manual) Lymphocytes % (Manual) Monocytes % (Manual) Eosinophils % (Manual) Basophils % (Manual) Nucleated RBC % Seg Neutrophils # Seg Neutrophils # Man Lymphocytes # (Manual) Monocytes # (Manual) Eosinophils # (Manual) Basophils # (Manual) PT INR Fibrinogen dRVVT Confirm Interp Factor V Activity POC ABG pH POC ABG pCO2 POC ABG pO2 ABG pO2 ABG HCO3 ABG Base Excess ABG Hemoglobin Oxyhemoglobin Sodium Potassium Chloride 97.8 L Carbon Dioxide BUN 37 H Creatinine 2.0 H Glucose 109 H POC Glucose 117 H 111 H Lactic Acid Calcium 7.9 L Ionized Calcium Phosphorus 1.80 L D Magnesium Direct Bilirubin AST ALT Alkaline Phosphatase Lactate Dehydrogenase Troponin T C-Reactive Protein Total Protein Albumin Prealbumin Triglycerides Cholesterol LDL Cholesterol Direct HDL Cholesterol 25-OH Vitamin D Total PTH Intact Urine pH Urine WBC (Auto) Urine Creatinine Urine Total Protein Fluid Total Protein Vancomycin Trough Rheumatoid Factor Complement C4 Miscellaneous Test Crossmatch 11/26/16 11/27/16 11/27/16 17:14 04:50 06:02 WBC RBC Hgb Hct MCV MCH MCHC RDW Plt Count Lymph % (Auto) [place] % (Auto) Lymph # [place] # Baso # Seg Neutrophils % Seg Neuts % (Manual) Lymphocytes % (Manual) Monocytes % (Manual) Eosinophils % (Manual) Basophils % (Manual) Nucleated RBC % Seg Neutrophils # Seg Neutrophils # Man Lymphocytes # (Manual) Monocytes # (Manual) Eosinophils # (Manual) Basophils # (Manual) PT INR Fibrinogen dRVVT Confirm Interp Factor V Activity POC ABG pH POC ABG pCO2 POC ABG pO2 ABG pO2 75.2 L ABG HCO3 26.4 H ABG Base Excess ABG Hemoglobin 7.6 L Oxyhemoglobin 94.8 L Sodium Potassium Chloride Carbon Dioxide BUN 49 H Creatinine 2.3 H Glucose POC Glucose 115 H Lactic Acid Calcium Ionized Calcium Phosphorus 1.50 L Magnesium Direct Bilirubin AST ALT Alkaline Phosphatase Lactate Dehydrogenase Troponin T C-Reactive Protein Total Protein Albumin Prealbumin Triglycerides Cholesterol LDL Cholesterol Direct HDL Cholesterol 25-OH Vitamin D Total PTH Intact Urine pH Urine WBC (Auto) Urine Creatinine Urine Total Protein Fluid Total Protein Vancomycin Trough Rheumatoid Factor Complement C4 Miscellaneous Test Crossmatch 10/08/17 10/08/17 10/08/17 06:02 11:25 17:25 WBC 11.6 H RBC 2.75 L Hgb 7.6 L Hct 23.4 L MCV MCH MCHC RDW 16.5 H Plt Count Lymph % (Auto) [place] % (Auto) Lymph # [place] # Baso # Seg Neutrophils % Seg Neuts % (Manual) Lymphocytes % (Manual) Monocytes % (Manual) Eosinophils % (Manual) Basophils % (Manual) Nucleated RBC % Seg Neutrophils # Seg Neutrophils # Man Lymphocytes # (Manual) Monocytes # (Manual) Eosinophils # (Manual) Basophils # (Manual) PT INR Fibrinogen dRVVT Confirm Interp Factor V Activity POC ABG pH POC ABG pCO2 POC ABG pO2 ABG pO2 ABG HCO3 ABG Base Excess ABG Hemoglobin Oxyhemoglobin Sodium Potassium Chloride Carbon Dioxide BUN Creatinine Glucose POC Glucose 114 H 126 H Lactic Acid Calcium Ionized Calcium Phosphorus Magnesium Direct Bilirubin AST ALT Alkaline Phosphatase Lactate Dehydrogenase Troponin T C-Reactive Protein Total Protein Albumin Prealbumin Triglycerides Cholesterol LDL Cholesterol Direct HDL Cholesterol 25-OH Vitamin D Total PTH Intact Urine pH Urine WBC (Auto) Urine Creatinine Urine Total Protein Fluid Total Protein Vancomycin Trough Rheumatoid Factor Complement C4 Miscellaneous Test Crossmatch 11/28/16 11/28/16 11/28/16 04:45 05:33 05:44 WBC RBC Hgb Hct MCV MCH MCHC RDW Plt Count Lymph % (Auto) [place] % (Auto) Lymph # [place] # Baso # Seg Neutrophils % Seg Neuts % (Manual) Lymphocytes % (Manual) Monocytes % (Manual) Eosinophils % (Manual) Basophils % (Manual) Nucleated RBC % Seg Neutrophils # Seg Neutrophils # Man Lymphocytes # (Manual) Monocytes # (Manual) Eosinophils # (Manual) Basophils # (Manual) PT INR Fibrinogen dRVVT Confirm Interp Factor V Activity POC ABG pH POC ABG pCO2 POC ABG pO2 ABG pO2 99.3 H ABG HCO3 ABG Base Excess ABG Hemoglobin 8.3 L Oxyhemoglobin Sodium Potassium Chloride Carbon Dioxide BUN 63 H Creatinine 2.4 H Glucose 102 H POC Glucose 108 H Lactic Acid Calcium Ionized Calcium Phosphorus 1.80 L Magnesium Direct Bilirubin AST ALT Alkaline Phosphatase Lactate Dehydrogenase Troponin T C-Reactive Protein Total Protein Albumin Prealbumin Triglycerides Cholesterol LDL Cholesterol Direct HDL Cholesterol 25-OH Vitamin D Total PTH Intact Urine pH Urine WBC (Auto) Urine Creatinine Urine Total Protein Fluid Total Protein Vancomycin Trough Rheumatoid Factor Complement C4 Miscellaneous Test Crossmatch 10/11/0611/28/16 11/28/16 12:31 16:09 23:46 WBC RBC Hgb Hct MCV MCH MCHC RDW Plt Count Lymph % (Auto) [place] % (Auto) Lymph # [place] # Baso # Seg Neutrophils % Seg Neuts % (Manual) Lymphocytes % (Manual) Monocytes % (Manual) Eosinophils % (Manual) Basophils % (Manual) Nucleated RBC % Seg Neutrophils # Seg Neutrophils # Man Lymphocytes # (Manual) Monocytes # (Manual) Eosinophils # (Manual) Basophils # (Manual) PT INR Fibrinogen dRVVT Confirm Interp Factor V Activity POC ABG pH POC ABG pCO2 POC ABG pO2 ABG pO2 ABG HCO3 ABG Base Excess ABG Hemoglobin Oxyhemoglobin Sodium Potassium Chloride Carbon Dioxide BUN Creatinine Glucose POC Glucose 126 H 111 H 119 H Lactic Acid Calcium Ionized Calcium Phosphorus Magnesium Direct Bilirubin AST ALT Alkaline Phosphatase Lactate Dehydrogenase Troponin T C-Reactive Protein Total Protein Albumin Prealbumin Triglycerides Cholesterol LDL Cholesterol Direct HDL Cholesterol 25-OH Vitamin D Total PTH Intact Urine pH Urine WBC (Auto) Urine Creatinine Urine Total Protein Fluid Total Protein Vancomycin Trough Rheumatoid Factor Complement C4 Miscellaneous Test Crossmatch 11/29/16 11/29/16 11/29/16 03:33 04:52 05:10 WBC RBC Hgb Hct MCV MCH MCHC RDW Plt Count Lymph % (Auto) [place] % (Auto) Lymph # [place] # Baso # Seg Neutrophils % Seg Neuts % (Manual) Lymphocytes % (Manual) Monocytes % (Manual) Eosinophils % (Manual) Basophils % (Manual) Nucleated RBC % Seg Neutrophils # Seg Neutrophils # Man Lymphocytes # (Manual) Monocytes # (Manual) Eosinophils # (Manual) Basophils # (Manual) PT INR Fibrinogen dRVVT Confirm Interp Factor V Activity POC ABG pH POC ABG pCO2 POC ABG pO2 ABG pO2 ABG HCO3 ABG Base Excess ABG Hemoglobin 7.0 L Oxyhemoglobin 94.9 L Sodium Potassium Chloride Carbon Dioxide BUN 73 H Creatinine 2.7 H Glucose POC Glucose 108 H Lactic Acid Calcium Ionized Calcium Phosphorus Magnesium Direct Bilirubin AST ALT Alkaline Phosphatase Lactate Dehydrogenase Troponin T C-Reactive Protein Total Protein Albumin Prealbumin Triglycerides Cholesterol LDL Cholesterol Direct HDL Cholesterol 25-OH Vitamin D Total PTH Intact Urine pH Urine WBC (Auto) Urine Creatinine Urine Total Protein Fluid Total Protein Vancomycin Trough Rheumatoid Factor Complement C4 Miscellaneous Test Crossmatch 10/10/17 10/10/17 10/10/17 12:16 18:05 23:46 WBC RBC Hgb Hct MCV MCH MCHC RDW Plt Count Lymph % (Auto) [place] % (Auto) Lymph # [place] # Baso # Seg Neutrophils % Seg Neuts % (Manual) Lymphocytes % (Manual) Monocytes % (Manual) Eosinophils % (Manual) Basophils % (Manual) Nucleated RBC % Seg Neutrophils # Seg Neutrophils # Man Lymphocytes # (Manual) Monocytes # (Manual) Eosinophils # (Manual) Basophils # (Manual) PT INR Fibrinogen dRVVT Confirm Interp Factor V Activity POC ABG pH POC ABG pCO2 POC ABG pO2 ABG pO2 ABG HCO3 ABG Base Excess ABG Hemoglobin Oxyhemoglobin Sodium Potassium Chloride Carbon Dioxide BUN Creatinine Glucose POC Glucose 133 H 146 H 141 H Lactic Acid Calcium Ionized Calcium Phosphorus Magnesium Direct Bilirubin AST ALT Alkaline Phosphatase Lactate Dehydrogenase Troponin T C-Reactive Protein Total Protein Albumin Prealbumin Triglycerides Cholesterol LDL Cholesterol Direct HDL Cholesterol 25-OH Vitamin D Total PTH Intact Urine pH Urine WBC (Auto) Urine Creatinine Urine Total Protein Fluid Total Protein Vancomycin Trough Rheumatoid Factor Complement C4 Miscellaneous Test Crossmatch 11/30/16 11/30/16 11/30/16 04:17 04:17 04:32 WBC 12.0 H RBC 2.80 L Hgb 7.8 L Hct 23.6 L MCV MCH MCHC RDW 16.6 H Plt Count Lymph % (Auto) [place] % (Auto) 11.3 H Lymph # [place] # 1.4 H Baso # Seg Neutrophils % Seg Neuts % (Manual) Lymphocytes % (Manual) Monocytes % (Manual) Eosinophils % (Manual) Basophils % (Manual) Nucleated RBC % Seg Neutrophils # 8.2 H Seg Neutrophils # Man Lymphocytes # (Manual) Monocytes # (Manual) Eosinophils # (Manual) Basophils # (Manual) PT INR Fibrinogen dRVVT Confirm Interp Factor V Activity POC ABG pH POC ABG pCO2 POC ABG pO2 ABG pO2 ABG HCO3 ABG Base Excess ABG Hemoglobin Oxyhemoglobin Sodium 169 H* D Potassium 5.1 H Chloride 121.5 H Carbon Dioxide BUN 34 H Creatinine 1.3 H D Glucose 133 H POC Glucose 131 H Lactic Acid Calcium 10.3 H Ionized Calcium Phosphorus Magnesium Direct Bilirubin AST ALT Alkaline Phosphatase Lactate Dehydrogenase Troponin T C-Reactive Protein Total Protein Albumin Prealbumin Triglycerides Cholesterol LDL Cholesterol Direct HDL Cholesterol 25-OH Vitamin D Total PTH Intact Urine pH Urine WBC (Auto) Urine Creatinine Urine Total Protein Fluid Total Protein Vancomycin Trough Rheumatoid Factor Complement C4 Miscellaneous Test Crossmatch 11/30/16 11/30/16 11/30/16 05:45 11:10 17:26 WBC RBC Hgb Hct MCV MCH MCHC RDW Plt Count Lymph % (Auto) [place] % (Auto) Lymph # [place] # Baso # Seg Neutrophils % Seg Neuts % (Manual) Lymphocytes % (Manual) Monocytes % (Manual) Eosinophils % (Manual) Basophils % (Manual) Nucleated RBC % Seg Neutrophils # Seg Neutrophils # Man Lymphocytes # (Manual) Monocytes # (Manual) Eosinophils # (Manual) Basophils # (Manual) PT INR Fibrinogen dRVVT Confirm Interp Factor V Activity POC ABG pH POC ABG pCO2 POC ABG pO2 ABG pO2 ABG HCO3 ABG Base Excess ABG Hemoglobin Oxyhemoglobin Sodium Potassium Chloride Carbon Dioxide BUN 45 H Creatinine 1.6 H Glucose 131 H POC Glucose 146 H 134 H Lactic Acid Calcium Ionized Calcium Phosphorus Magnesium Direct Bilirubin AST ALT Alkaline Phosphatase Lactate Dehydrogenase Troponin T C-Reactive Protein Total Protein Albumin Prealbumin Triglycerides Cholesterol LDL Cholesterol Direct HDL Cholesterol 25-OH Vitamin D Total PTH Intact Urine pH Urine WBC (Auto) Urine Creatinine Urine Total Protein Fluid Total Protein Vancomycin Trough Rheumatoid Factor Complement C4 Miscellaneous Test Crossmatch 11/30/16 12/01/16 12/01/16 23:35 00:06 03:35 WBC RBC Hgb Hct MCV MCH MCHC RDW Plt Count Lymph % (Auto) [place] % (Auto) Lymph # [place] # Baso # Seg Neutrophils % Seg Neuts % (Manual) Lymphocytes % (Manual) Monocytes % (Manual) Eosinophils % (Manual) Basophils % (Manual) Nucleated RBC % Seg Neutrophils # Seg Neutrophils # Man Lymphocytes # (Manual) Monocytes # (Manual) Eosinophils # (Manual) Basophils # (Manual) PT INR Fibrinogen dRVVT Confirm Interp Factor V Activity POC ABG pH POC ABG pCO2 POC ABG pO2 ABG pO2 ABG HCO3 ABG Base Excess ABG Hemoglobin 6.9 L Oxyhemoglobin Sodium Potassium Chloride Carbon Dioxide BUN 58 H Creatinine 1.8 H Glucose 146 H POC Glucose 151 H Lactic Acid Calcium Ionized Calcium Phosphorus Magnesium Direct Bilirubin AST ALT Alkaline Phosphatase Lactate Dehydrogenase Troponin T C-Reactive Protein Total Protein Albumin Prealbumin Triglycerides Cholesterol LDL Cholesterol Direct HDL Cholesterol 25-OH Vitamin D Total PTH Intact Urine pH Urine WBC (Auto) Urine Creatinine Urine Total Protein Fluid Total Protein Vancomycin Trough Rheumatoid Factor Complement C4 Miscellaneous Test Crossmatch 12/01/16 12/01/16 12/01/16 03:35 05:47 11:52 WBC 12.3 H RBC 2.82 L Hgb 7.8 L Hct 23.7 L MCV MCH MCHC RDW 16.7 H Plt Count Lymph % (Auto) [place] % (Auto) 9.8 H Lymph # [place] # 1.2 H Baso # Seg Neutrophils % Seg Neuts % (Manual) Lymphocytes % (Manual) Monocytes % (Manual) Eosinophils % (Manual) Basophils % (Manual) Nucleated RBC % Seg Neutrophils # 8.4 H Seg Neutrophils # Man Lymphocytes # (Manual) Monocytes # (Manual) Eosinophils # (Manual) Basophils # (Manual) PT INR Fibrinogen dRVVT Confirm Interp Factor V Activity POC ABG pH POC ABG pCO2 POC ABG pO2 ABG pO2 ABG HCO3 ABG Base Excess ABG Hemoglobin Oxyhemoglobin Sodium Potassium Chloride Carbon Dioxide BUN Creatinine Glucose POC Glucose 152 H 152 H Lactic Acid Calcium Ionized Calcium Phosphorus Magnesium Direct Bilirubin AST ALT Alkaline Phosphatase Lactate Dehydrogenase Troponin T C-Reactive Protein Total Protein Albumin Prealbumin Triglycerides Cholesterol LDL Cholesterol Direct HDL Cholesterol 25-OH Vitamin D Total PTH Intact Urine pH Urine WBC (Auto) Urine Creatinine Urine Total Protein Fluid Total Protein Vancomycin Trough Rheumatoid Factor Complement C4 Miscellaneous Test Crossmatch 12/01/16 12/01/16 12/02/16 17:40 23:41 05:00 WBC RBC Hgb Hct MCV MCH MCHC RDW Plt Count Lymph % (Auto) [place] % (Auto) Lymph # [place] # Baso # Seg Neutrophils % Seg Neuts % (Manual) Lymphocytes % (Manual) Monocytes % (Manual) Eosinophils % (Manual) Basophils % (Manual) Nucleated RBC % Seg Neutrophils # Seg Neutrophils # Man Lymphocytes # (Manual) Monocytes # (Manual) Eosinophils # (Manual) Basophils # (Manual) PT INR Fibrinogen dRVVT Confirm Interp Factor V Activity POC ABG pH POC ABG pCO2 POC ABG pO2 ABG pO2 ABG HCO3 ABG Base Excess ABG Hemoglobin Oxyhemoglobin Sodium Potassium Chloride Carbon Dioxide BUN 45 H Creatinine Glucose 115 H POC Glucose 140 H 144 H Lactic Acid Calcium Ionized Calcium Phosphorus Magnesium Direct Bilirubin AST ALT Alkaline Phosphatase Lactate Dehydrogenase Troponin T C-Reactive Protein Total Protein Albumin Prealbumin Triglycerides Cholesterol LDL Cholesterol Direct HDL Cholesterol 25-OH Vitamin D Total PTH Intact Urine pH Urine WBC (Auto) Urine Creatinine Urine Total Protein Fluid Total Protein Vancomycin Trough Rheumatoid Factor Complement C4 Miscellaneous Test Crossmatch 12/02/16 12/02/16 12/02/16 05:31 11:20 17:38 WBC RBC Hgb Hct MCV MCH MCHC RDW Plt Count Lymph % (Auto) [place] % (Auto) Lymph # [place] # Baso # Seg Neutrophils % Seg Neuts % (Manual) Lymphocytes % (Manual) Monocytes % (Manual) Eosinophils % (Manual) Basophils % (Manual) Nucleated RBC % Seg Neutrophils # Seg Neutrophils # Man Lymphocytes # (Manual) Monocytes # (Manual) Eosinophils # (Manual) Basophils # (Manual) PT INR Fibrinogen dRVVT Confirm Interp Factor V Activity POC ABG pH POC ABG pCO2 POC ABG pO2 ABG pO2 ABG HCO3 ABG Base Excess ABG Hemoglobin Oxyhemoglobin Sodium Potassium Chloride Carbon Dioxide BUN Creatinine Glucose POC Glucose 136 H 177 H 139 H Lactic Acid Calcium Ionized Calcium Phosphorus Magnesium Direct Bilirubin AST ALT Alkaline Phosphatase Lactate Dehydrogenase Troponin T C-Reactive Protein Total Protein Albumin Prealbumin Triglycerides Cholesterol LDL Cholesterol Direct HDL Cholesterol 25-OH Vitamin D Total PTH Intact Urine pH Urine WBC (Auto) Urine Creatinine Urine Total Protein Fluid Total Protein Vancomycin Trough Rheumatoid Factor Complement C4 Miscellaneous Test Crossmatch 12/02/16 12/03/16 12/03/16 23:43 04:00 04:00 WBC 20.4 H RBC 2.74 L Hgb 7.4 L Hct 23.6 L MCV MCH 27 L MCHC RDW 17.1 H Plt Count Lymph % (Auto) [place] % (Auto) Lymph # [place] # Baso # Seg Neutrophils % Seg Neuts % (Manual) 31.0 L Lymphocytes % (Manual) Monocytes % (Manual) Eosinophils % (Manual) Basophils % (Manual) Nucleated RBC % Seg Neutrophils # Seg Neutrophils # Man Lymphocytes # (Manual) Monocytes # (Manual) Eosinophils # (Manual) Basophils # (Manual) PT INR Fibrinogen dRVVT Confirm Interp Factor V Activity POC ABG pH POC ABG pCO2 POC ABG pO2 ABG pO2 ABG HCO3 ABG Base Excess ABG Hemoglobin Oxyhemoglobin Sodium Potassium Chloride Carbon Dioxide BUN 61 H Creatinine 1.6 H Glucose 119 H POC Glucose 158 H Lactic Acid Calcium Ionized Calcium Phosphorus Magnesium Direct Bilirubin AST ALT Alkaline Phosphatase Lactate Dehydrogenase Troponin T C-Reactive Protein Total Protein Albumin Prealbumin Triglycerides Cholesterol LDL Cholesterol Direct HDL Cholesterol 25-OH Vitamin D Total PTH Intact Urine pH Urine WBC (Auto) Urine Creatinine Urine Total Protein Fluid Total Protein Vancomycin Trough Rheumatoid Factor Complement C4 Miscellaneous Test Crossmatch 12/03/16 12/03/16 12/03/16 05:02 12:11 18:16 WBC RBC Hgb Hct MCV MCH MCHC RDW Plt Count Lymph % (Auto) [place] % (Auto) Lymph # [place] # Baso # Seg Neutrophils % Seg Neuts % (Manual) Lymphocytes % (Manual) Monocytes % (Manual) Eosinophils % (Manual) Basophils % (Manual) Nucleated RBC % Seg Neutrophils # Seg Neutrophils # Man Lymphocytes # (Manual) Monocytes # (Manual) Eosinophils # (Manual) Basophils # (Manual) PT INR Fibrinogen dRVVT Confirm Interp Factor V Activity POC ABG pH POC ABG pCO2 POC ABG pO2 ABG pO2 ABG HCO3 ABG Base Excess ABG Hemoglobin Oxyhemoglobin Sodium Potassium Chloride Carbon Dioxide BUN Creatinine Glucose POC Glucose 146 H 157 H 124 H Lactic Acid Calcium Ionized Calcium Phosphorus Magnesium Direct Bilirubin AST ALT Alkaline Phosphatase Lactate Dehydrogenase Troponin T C-Reactive Protein Total Protein Albumin Prealbumin Triglycerides Cholesterol LDL Cholesterol Direct HDL Cholesterol 25-OH Vitamin D Total PTH Intact Urine pH Urine WBC (Auto) Urine Creatinine Urine Total Protein Fluid Total Protein Vancomycin Trough Rheumatoid Factor Complement C4 Miscellaneous Test Crossmatch 12/03/16 12/04/16 12/04/16 23:41 04:00 04:45 WBC RBC Hgb Hct MCV MCH MCHC RDW Plt Count Lymph % (Auto) [place] % (Auto) Lymph # [place] # Baso # Seg Neutrophils % Seg Neuts % (Manual) Lymphocytes % (Manual) Monocytes % (Manual) Eosinophils % (Manual) Basophils % (Manual) Nucleated RBC % Seg Neutrophils # Seg Neutrophils # Man Lymphocytes # (Manual) Monocytes # (Manual) Eosinophils # (Manual) Basophils # (Manual) PT INR Fibrinogen dRVVT Confirm Interp Factor V Activity POC ABG pH POC ABG pCO2 POC ABG pO2 ABG pO2 ABG HCO3 ABG Base Excess ABG Hemoglobin Oxyhemoglobin Sodium Potassium Chloride Carbon Dioxide BUN 76 H Creatinine 1.6 H Glucose POC Glucose 130 H 136 H Lactic Acid Calcium Ionized Calcium Phosphorus Magnesium Direct Bilirubin AST ALT Alkaline Phosphatase 155 H Lactate Dehydrogenase Troponin T C-Reactive Protein Total Protein 5.5 L Albumin 1.5 L Prealbumin Triglycerides Cholesterol LDL Cholesterol Direct HDL Cholesterol 25-OH Vitamin D Total PTH Intact Urine pH Urine WBC (Auto) Urine Creatinine Urine Total Protein Fluid Total Protein Vancomycin Trough Rheumatoid Factor Complement C4 Miscellaneous Test Crossmatch 12/04/16 12/04/16 12/05/16 12:08 17:23 00:10 WBC RBC Hgb Hct MCV MCH MCHC RDW Plt Count Lymph % (Auto) [place] % (Auto) Lymph # [place] # Baso # Seg Neutrophils % Seg Neuts % (Manual) Lymphocytes % (Manual) Monocytes % (Manual) Eosinophils % (Manual) Basophils % (Manual) Nucleated RBC % Seg Neutrophils # Seg Neutrophils # Man Lymphocytes # (Manual) Monocytes # (Manual) Eosinophils # (Manual) Basophils # (Manual) PT INR Fibrinogen dRVVT Confirm Interp Factor V Activity POC ABG pH POC ABG pCO2 POC ABG pO2 ABG pO2 ABG HCO3 ABG Base Excess ABG Hemoglobin Oxyhemoglobin Sodium Potassium Chloride Carbon Dioxide BUN Creatinine Glucose POC Glucose 114 H 129 H 124 H Lactic Acid Calcium Ionized Calcium Phosphorus Magnesium Direct Bilirubin AST ALT Alkaline Phosphatase Lactate Dehydrogenase Troponin T C-Reactive Protein Total Protein Albumin Prealbumin Triglycerides Cholesterol LDL Cholesterol Direct HDL Cholesterol 25-OH Vitamin D Total PTH Intact Urine pH Urine WBC (Auto) Urine Creatinine Urine Total Protein Fluid Total Protein Vancomycin Trough Rheumatoid Factor Complement C4 Miscellaneous Test Crossmatch 12/05/16 12/05/16 12/05/16 05:00 05:00 05:18 WBC RBC Hgb Hct MCV MCH MCHC RDW Plt Count Lymph % (Auto) [place] % (Auto) Lymph # [place] # Baso # Seg Neutrophils % Seg Neuts % (Manual) Lymphocytes % (Manual) Monocytes % (Manual) Eosinophils % (Manual) Basophils % (Manual) Nucleated RBC % Seg Neutrophils # Seg Neutrophils # Man Lymphocytes # (Manual) Monocytes # (Manual) Eosinophils # (Manual) Basophils # (Manual) PT INR Fibrinogen dRVVT Confirm Interp Factor V Activity POC ABG pH POC ABG pCO2 POC ABG pO2 ABG pO2 ABG HCO3 ABG Base Excess ABG Hemoglobin Oxyhemoglobin Sodium Potassium Chloride Carbon Dioxide 21 L BUN 85 H Creatinine 1.9 H Glucose 131 H POC Glucose 154 H Lactic Acid Calcium Ionized Calcium Phosphorus Magnesium Direct Bilirubin AST ALT Alkaline Phosphatase Lactate Dehydrogenase Troponin T C-Reactive Protein 19.30 H Total Protein Albumin Prealbumin Triglycerides Cholesterol LDL Cholesterol Direct HDL Cholesterol 25-OH Vitamin D Total PTH Intact Urine pH Urine WBC (Auto) Urine Creatinine Urine Total Protein Fluid Total Protein Vancomycin Trough Rheumatoid Factor Complement C4 Miscellaneous Test Crossmatch 12/05/16 12/05/16 12/05/16 11:43 17:46 23:25 WBC RBC Hgb Hct MCV MCH MCHC RDW Plt Count Lymph % (Auto) [place] % (Auto) Lymph # [place] # Baso # Seg Neutrophils % Seg Neuts % (Manual) Lymphocytes % (Manual) Monocytes % (Manual) Eosinophils % (Manual) Basophils % (Manual) Nucleated RBC % Seg Neutrophils # Seg Neutrophils # Man Lymphocytes # (Manual) Monocytes # (Manual) Eosinophils # (Manual) Basophils # (Manual) PT INR Fibrinogen dRVVT Confirm Interp Factor V Activity POC ABG pH POC ABG pCO2 POC ABG pO2 ABG pO2 ABG HCO3 ABG Base Excess ABG Hemoglobin Oxyhemoglobin Sodium Potassium Chloride Carbon Dioxide BUN Creatinine Glucose POC Glucose 117 H 113 H 111 H Lactic Acid Calcium Ionized Calcium Phosphorus Magnesium Direct Bilirubin AST ALT Alkaline Phosphatase Lactate Dehydrogenase Troponin T C-Reactive Protein Total Protein Albumin Prealbumin Triglycerides Cholesterol LDL Cholesterol Direct HDL Cholesterol 25-OH Vitamin D Total PTH Intact Urine pH Urine WBC (Auto) Urine Creatinine Urine Total Protein Fluid Total Protein Vancomycin Trough Rheumatoid Factor Complement C4 Miscellaneous Test Crossmatch 12/05/16 12/06/16 12/06/16 Unknown 04:58 06:00 WBC RBC Hgb Hct MCV MCH MCHC RDW Plt Count Lymph % (Auto) [place] % (Auto) Lymph # [place] # Baso # Seg Neutrophils % Seg Neuts % (Manual) Lymphocytes % (Manual) Monocytes % (Manual) Eosinophils % (Manual) Basophils % (Manual) Nucleated RBC % Seg Neutrophils # Seg Neutrophils # Man Lymphocytes # (Manual) Monocytes # (Manual) Eosinophils # (Manual) Basophils # (Manual) PT INR Fibrinogen dRVVT Confirm Interp Factor V Activity POC ABG pH POC ABG pCO2 POC ABG pO2 ABG pO2 75.2 L ABG HCO3 ABG Base Excess -3.4 L ABG Hemoglobin 7.4 L Oxyhemoglobin 94.5 L Sodium Potassium Chloride Carbon Dioxide 20 L BUN 99 H Creatinine 2.1 H Glucose 126 H POC Glucose 145 H Lactic Acid Calcium Ionized Calcium Phosphorus 4.80 H Magnesium Direct Bilirubin AST ALT Alkaline Phosphatase Lactate Dehydrogenase Troponin T C-Reactive Protein Total Protein Albumin Prealbumin Triglycerides Cholesterol LDL Cholesterol Direct HDL Cholesterol 25-OH Vitamin D Total PTH Intact Urine pH Urine WBC (Auto) Urine Creatinine Urine Total Protein Fluid Total Protein Vancomycin Trough Rheumatoid Factor Complement C4 Miscellaneous Test Crossmatch 12/06/16 12/06/16 12/06/16 06:46 11:54 17:55 WBC RBC Hgb 8.3 L Hct 26.4 L MCV MCH MCHC RDW Plt Count Lymph % (Auto) [place] % (Auto) Lymph # [place] # Baso # Seg Neutrophils % Seg Neuts % (Manual) Lymphocytes % (Manual) Monocytes % (Manual) Eosinophils % (Manual) Basophils % (Manual) Nucleated RBC % Seg Neutrophils # Seg Neutrophils # Man Lymphocytes # (Manual) Monocytes # (Manual) Eosinophils # (Manual) Basophils # (Manual) PT INR Fibrinogen dRVVT Confirm Interp Factor V Activity POC ABG pH POC ABG pCO2 POC ABG pO2 ABG pO2 ABG HCO3 ABG Base Excess ABG Hemoglobin Oxyhemoglobin Sodium Potassium Chloride Carbon Dioxide BUN Creatinine Glucose POC Glucose 126 H 157 H Lactic Acid Calcium Ionized Calcium Phosphorus Magnesium Direct Bilirubin AST ALT Alkaline Phosphatase Lactate Dehydrogenase Troponin T C-Reactive Protein Total Protein Albumin Prealbumin Triglycerides Cholesterol LDL Cholesterol Direct HDL Cholesterol 25-OH Vitamin D Total PTH Intact Urine pH Urine WBC (Auto) Urine Creatinine Urine Total Protein Fluid Total Protein Vancomycin Trough Rheumatoid Factor Complement C4 Miscellaneous Test Crossmatch 12/06/16 12/07/16 12/07/16 23:59 05:34 06:30 WBC RBC Hgb Hct MCV MCH MCHC RDW Plt Count Lymph % (Auto) [place] % (Auto) Lymph # [place] # Baso # Seg Neutrophils % Seg Neuts % (Manual) Lymphocytes % (Manual) Monocytes % (Manual) Eosinophils % (Manual) Basophils % (Manual) Nucleated RBC % Seg Neutrophils # Seg Neutrophils # Man Lymphocytes # (Manual) Monocytes # (Manual) Eosinophils # (Manual) Basophils # (Manual) PT INR Fibrinogen dRVVT Confirm Interp Factor V Activity POC ABG pH POC ABG pCO2 POC ABG pO2 ABG pO2 ABG HCO3 ABG Base Excess ABG Hemoglobin Oxyhemoglobin Sodium Potassium Chloride Carbon Dioxide BUN 67 H Creatinine 1.4 H Glucose 126 H POC Glucose 129 H 129 H Lactic Acid Calcium Ionized Calcium Phosphorus Magnesium Direct Bilirubin AST ALT Alkaline Phosphatase Lactate Dehydrogenase Troponin T C-Reactive Protein Total Protein Albumin Prealbumin Triglycerides Cholesterol LDL Cholesterol Direct HDL Cholesterol 25-OH Vitamin D Total PTH Intact Urine pH Urine WBC (Auto) Urine Creatinine Urine Total Protein Fluid Total Protein Vancomycin Trough Rheumatoid Factor Complement C4 Miscellaneous Test Crossmatch 12/07/16 12/07/16 12/07/16 06:30 08:00 09:45 WBC 18.8 H RBC 2.52 L Hgb 6.9 L 6.8 L Hct 21.2 L 21.1 L MCV MCH 27 L MCHC RDW 18.0 H Plt Count Lymph % (Auto) [place] % (Auto) 9.9 H Lymph # [place] # 1.9 H Baso # Seg Neutrophils % 71.8 H Seg Neuts % (Manual) Lymphocytes % (Manual) Monocytes % (Manual) Eosinophils % (Manual) Basophils % (Manual) Nucleated RBC % Seg Neutrophils # 13.5 H Seg Neutrophils # Man Lymphocytes # (Manual) Monocytes # (Manual) Eosinophils # (Manual) Basophils # (Manual) PT INR Fibrinogen dRVVT Confirm Interp Factor V Activity POC ABG pH POC ABG pCO2 POC ABG pO2 ABG pO2 ABG HCO3 ABG Base Excess ABG Hemoglobin Oxyhemoglobin Sodium Potassium Chloride Carbon Dioxide BUN Creatinine Glucose POC Glucose Lactic Acid Calcium Ionized Calcium Phosphorus Magnesium Direct Bilirubin AST ALT Alkaline Phosphatase Lactate Dehydrogenase Troponin T C-Reactive Protein Total Protein Albumin Prealbumin Triglycerides Cholesterol LDL Cholesterol Direct HDL Cholesterol 25-OH Vitamin D Total PTH Intact Urine pH Urine WBC (Auto) Urine Creatinine Urine Total Protein Fluid Total Protein Vancomycin Trough Rheumatoid Factor Complement C4 Miscellaneous Test Crossmatch See Detail 12/07/16 12/07/16 12/07/16 11:44 18:19 23:59 WBC RBC Hgb Hct MCV MCH MCHC RDW Plt Count Lymph % (Auto) [place] % (Auto) Lymph # [place] # Baso # Seg Neutrophils % Seg Neuts % (Manual) Lymphocytes % (Manual) Monocytes % (Manual) Eosinophils % (Manual) Basophils % (Manual) Nucleated RBC % Seg Neutrophils # Seg Neutrophils # Man Lymphocytes # (Manual) Monocytes # (Manual) Eosinophils # (Manual) Basophils # (Manual) PT INR Fibrinogen dRVVT Confirm Interp Factor V Activity POC ABG pH POC ABG pCO2 POC ABG pO2 ABG pO2 ABG HCO3 ABG Base Excess ABG Hemoglobin Oxyhemoglobin Sodium Potassium Chloride Carbon Dioxide BUN Creatinine Glucose POC Glucose 137 H 138 H 133 H Lactic Acid Calcium Ionized Calcium Phosphorus Magnesium Direct Bilirubin AST ALT Alkaline Phosphatase Lactate Dehydrogenase Troponin T C-Reactive Protein Total Protein Albumin Prealbumin Triglycerides Cholesterol LDL Cholesterol Direct HDL Cholesterol 25-OH Vitamin D Total PTH Intact Urine pH Urine WBC (Auto) Urine Creatinine Urine Total Protein Fluid Total Protein Vancomycin Trough Rheumatoid Factor Complement C4 Miscellaneous Test Crossmatch 12/08/16 12/08/16 12/08/16 05:25 05:30 05:30 WBC 23.8 H RBC 2.88 L Hgb 8.1 L Hct 24.3 L MCV MCH MCHC RDW 16.7 H Plt Count Lymph % (Auto) [place] % (Auto) Lymph # [place] # Baso # Seg Neutrophils % Seg Neuts % (Manual) 76.0 H Lymphocytes % (Manual) 9.0 L Monocytes % (Manual) 9.0 H Eosinophils % (Manual) Basophils % (Manual) Nucleated RBC % Seg Neutrophils # Seg Neutrophils # Man 18.1 H Lymphocytes # (Manual) Monocytes # (Manual) 2.1 H Eosinophils # (Manual) Basophils # (Manual) PT INR Fibrinogen dRVVT Confirm Interp Factor V Activity POC ABG pH POC ABG pCO2 POC ABG pO2 ABG pO2 ABG HCO3 ABG Base Excess ABG Hemoglobin Oxyhemoglobin Sodium Potassium Chloride Carbon Dioxide 21 L BUN 76 H Creatinine 1.6 H Glucose 133 H POC Glucose 177 H Lactic Acid Calcium Ionized Calcium Phosphorus Magnesium Direct Bilirubin AST ALT Alkaline Phosphatase Lactate Dehydrogenase Troponin T C-Reactive Protein Total Protein Albumin Prealbumin Triglycerides Cholesterol LDL Cholesterol Direct HDL Cholesterol 25-OH Vitamin D Total PTH Intact Urine pH Urine WBC (Auto) Urine Creatinine Urine Total Protein Fluid Total Protein Vancomycin Trough Rheumatoid Factor Complement C4 Miscellaneous Test Crossmatch 12/08/16 12/08/16 12/09/16 11:45 18:00 00:00 WBC RBC Hgb Hct MCV MCH MCHC RDW Plt Count Lymph % (Auto) [place] % (Auto) Lymph # [place] # Baso # Seg Neutrophils % Seg Neuts % (Manual) Lymphocytes % (Manual) Monocytes % (Manual) Eosinophils % (Manual) Basophils % (Manual) Nucleated RBC % Seg Neutrophils # Seg Neutrophils # Man Lymphocytes # (Manual) Monocytes # (Manual) Eosinophils # (Manual) Basophils # (Manual) PT INR Fibrinogen dRVVT Confirm Interp Factor V Activity POC ABG pH POC ABG pCO2 POC ABG pO2 ABG pO2 ABG HCO3 ABG Base Excess ABG Hemoglobin Oxyhemoglobin Sodium Potassium Chloride Carbon Dioxide BUN Creatinine Glucose POC Glucose 163 H 123 H 137 H Lactic Acid Calcium Ionized Calcium Phosphorus Magnesium Direct Bilirubin AST ALT Alkaline Phosphatase Lactate Dehydrogenase Troponin T C-Reactive Protein Total Protein Albumin Prealbumin Triglycerides Cholesterol LDL Cholesterol Direct HDL Cholesterol 25-OH Vitamin D Total PTH Intact Urine pH Urine WBC (Auto) Urine Creatinine Urine Total Protein Fluid Total Protein Vancomycin Trough Rheumatoid Factor Complement C4 Miscellaneous Test Crossmatch 12/09/16 12/09/16 12/09/16 05:34 06:00 06:00 WBC 15.5 H RBC 2.87 L Hgb 8.0 L Hct 24.2 L MCV MCH MCHC RDW 17.2 H Plt Count Lymph % (Auto) [place] % (Auto) 11.6 H Lymph # [place] # 1.8 H Baso # Seg Neutrophils % 70.8 H Seg Neuts % (Manual) Lymphocytes % (Manual) Monocytes % (Manual) Eosinophils % (Manual) Basophils % (Manual) Nucleated RBC % Seg Neutrophils # 11.0 H Seg Neutrophils # Man Lymphocytes # (Manual) Monocytes # (Manual) Eosinophils # (Manual) Basophils # (Manual) PT INR Fibrinogen dRVVT Confirm Interp Factor V Activity POC ABG pH POC ABG pCO2 POC ABG pO2 ABG pO2 ABG HCO3 ABG Base Excess ABG Hemoglobin Oxyhemoglobin Sodium Potassium Chloride Carbon Dioxide BUN 51 H Creatinine Glucose 117 H POC Glucose 136 H Lactic Acid Calcium Ionized Calcium Phosphorus Magnesium Direct Bilirubin AST ALT Alkaline Phosphatase Lactate Dehydrogenase Troponin T C-Reactive Protein Total Protein Albumin Prealbumin Triglycerides Cholesterol LDL Cholesterol Direct HDL Cholesterol 25-OH Vitamin D Total PTH Intact Urine pH Urine WBC (Auto) Urine Creatinine Urine Total Protein Fluid Total Protein Vancomycin Trough Rheumatoid Factor Complement C4 Miscellaneous Test Crossmatch 12/09/16 12/09/16 12/09/16 12:29 17:52 23:10 WBC RBC Hgb Hct MCV MCH MCHC RDW Plt Count Lymph % (Auto) [place] % (Auto) Lymph # [place] # Baso # Seg Neutrophils % Seg Neuts % (Manual) Lymphocytes % (Manual) Monocytes % (Manual) Eosinophils % (Manual) Basophils % (Manual) Nucleated RBC % Seg Neutrophils # Seg Neutrophils # Man Lymphocytes # (Manual) Monocytes # (Manual) Eosinophils # (Manual) Basophils # (Manual) PT INR Fibrinogen dRVVT Confirm Interp Factor V Activity POC ABG pH POC ABG pCO2 POC ABG pO2 ABG pO2 ABG HCO3 ABG Base Excess ABG Hemoglobin Oxyhemoglobin Sodium Potassium Chloride Carbon Dioxide BUN Creatinine Glucose POC Glucose 139 H 140 H 129 H Lactic Acid Calcium Ionized Calcium Phosphorus Magnesium Direct Bilirubin AST ALT Alkaline Phosphatase Lactate Dehydrogenase Troponin T C-Reactive Protein Total Protein Albumin Prealbumin Triglycerides Cholesterol LDL Cholesterol Direct HDL Cholesterol 25-OH Vitamin D Total PTH Intact Urine pH Urine WBC (Auto) Urine Creatinine Urine Total Protein Fluid Total Protein Vancomycin Trough Rheumatoid Factor Complement C4 Miscellaneous Test Crossmatch 12/10/16 12/10/16 12/10/16 05:00 05:00 06:54 WBC 15.7 H RBC 2.87 L Hgb 8.2 L Hct 24.4 L MCV MCH MCHC RDW 17.2 H Plt Count Lymph % (Auto) [place] % (Auto) 8.3 H Lymph # [place] # 1.3 H Baso # Seg Neutrophils % 72.8 H Seg Neuts % (Manual) Lymphocytes % (Manual) Monocytes % (Manual) Eosinophils % (Manual) Basophils % (Manual) Nucleated RBC % Seg Neutrophils # 11.4 H Seg Neutrophils # Man Lymphocytes # (Manual) Monocytes # (Manual) Eosinophils # (Manual) Basophils # (Manual) PT INR Fibrinogen dRVVT Confirm Interp Factor V Activity POC ABG pH POC ABG pCO2 POC ABG pO2 ABG pO2 ABG HCO3 ABG Base Excess ABG Hemoglobin Oxyhemoglobin Sodium Potassium Chloride Carbon Dioxide BUN 64 H Creatinine 1.4 H Glucose 134 H POC Glucose 154 H Lactic Acid Calcium Ionized Calcium Phosphorus Magnesium Direct Bilirubin AST ALT Alkaline Phosphatase Lactate Dehydrogenase Troponin T C-Reactive Protein Total Protein Albumin Prealbumin Triglycerides Cholesterol LDL Cholesterol Direct HDL Cholesterol 25-OH Vitamin D Total PTH Intact Urine pH Urine WBC (Auto) Urine Creatinine Urine Total Protein Fluid Total Protein Vancomycin Trough Rheumatoid Factor Complement C4 Miscellaneous Test Crossmatch 12/10/16 12/10/16 12/10/16 11:58 17:29 23:52 WBC RBC Hgb Hct MCV MCH MCHC RDW Plt Count Lymph % (Auto) [place] % (Auto) Lymph # [place] # Baso # Seg Neutrophils % Seg Neuts % (Manual) Lymphocytes % (Manual) Monocytes % (Manual) Eosinophils % (Manual) Basophils % (Manual) Nucleated RBC % Seg Neutrophils # Seg Neutrophils # Man Lymphocytes # (Manual) Monocytes # (Manual) Eosinophils # (Manual) Basophils # (Manual) PT INR Fibrinogen dRVVT Confirm Interp Factor V Activity POC ABG pH POC ABG pCO2 POC ABG pO2 ABG pO2 ABG HCO3 ABG Base Excess ABG Hemoglobin Oxyhemoglobin Sodium Potassium Chloride Carbon Dioxide BUN Creatinine Glucose POC Glucose 144 H 163 H 125 H Lactic Acid Calcium Ionized Calcium Phosphorus Magnesium Direct Bilirubin AST ALT Alkaline Phosphatase Lactate Dehydrogenase Troponin T C-Reactive Protein Total Protein Albumin Prealbumin Triglycerides Cholesterol LDL Cholesterol Direct HDL Cholesterol 25-OH Vitamin D Total PTH Intact Urine pH Urine WBC (Auto) Urine Creatinine Urine Total Protein Fluid Total Protein Vancomycin Trough Rheumatoid Factor Complement C4 Miscellaneous Test Crossmatch 12/11/16 12/11/16 12/11/16 05:38 06:30 06:30 WBC 14.4 H RBC 2.76 L Hgb 7.7 L Hct 23.4 L MCV MCH MCHC RDW 17.2 H Plt Count Lymph % (Auto) [place] % (Auto) 8.8 H Lymph # [place] # 1.3 H Baso # Seg Neutrophils % 72.5 H Seg Neuts % (Manual) Lymphocytes % (Manual) Monocytes % (Manual) Eosinophils % (Manual) Basophils % (Manual) Nucleated RBC % Seg Neutrophils # 10.5 H Seg Neutrophils # Man Lymphocytes # (Manual) Monocytes # (Manual) Eosinophils # (Manual) Basophils # (Manual) PT INR Fibrinogen dRVVT Confirm Interp Factor V Activity POC ABG pH POC ABG pCO2 POC ABG pO2 ABG pO2 ABG HCO3 ABG Base Excess ABG Hemoglobin Oxyhemoglobin Sodium Potassium Chloride Carbon Dioxide BUN 43 H Creatinine Glucose 124 H POC Glucose 141 H Lactic Acid Calcium 8.3 L Ionized Calcium Phosphorus Magnesium 1.60 L Direct Bilirubin AST ALT Alkaline Phosphatase Lactate Dehydrogenase Troponin T C-Reactive Protein Total Protein Albumin Prealbumin Triglycerides Cholesterol LDL Cholesterol Direct HDL Cholesterol 25-OH Vitamin D Total PTH Intact Urine pH Urine WBC (Auto) Urine Creatinine Urine Total Protein Fluid Total Protein Vancomycin Trough Rheumatoid Factor Complement C4 Miscellaneous Test Crossmatch 12/11/16 12/11/16 12/11/16 11:15 17:59 23:48 WBC RBC Hgb Hct MCV MCH MCHC RDW Plt Count Lymph % (Auto) [place] % (Auto) Lymph # [place] # Baso # Seg Neutrophils % Seg Neuts % (Manual) Lymphocytes % (Manual) Monocytes % (Manual) Eosinophils % (Manual) Basophils % (Manual) Nucleated RBC % Seg Neutrophils # Seg Neutrophils # Man Lymphocytes # (Manual) Monocytes # (Manual) Eosinophils # (Manual) Basophils # (Manual) PT INR Fibrinogen dRVVT Confirm Interp Factor V Activity POC ABG pH POC ABG pCO2 POC ABG pO2 ABG pO2 ABG HCO3 ABG Base Excess ABG Hemoglobin Oxyhemoglobin Sodium Potassium Chloride Carbon Dioxide BUN Creatinine Glucose POC Glucose 188 H 106 H 119 H Lactic Acid Calcium Ionized Calcium Phosphorus Magnesium Direct Bilirubin AST ALT Alkaline Phosphatase Lactate Dehydrogenase Troponin T C-Reactive Protein Total Protein Albumin Prealbumin Triglycerides Cholesterol LDL Cholesterol Direct HDL Cholesterol 25-OH Vitamin D Total PTH Intact Urine pH Urine WBC (Auto) Urine Creatinine Urine Total Protein Fluid Total Protein Vancomycin Trough Rheumatoid Factor Complement C4 Miscellaneous Test Crossmatch 12/12/16 12/12/16 12/12/16 05:00 06:01 12:20 WBC 16.7 H RBC 2.87 L Hgb 8.0 L Hct 24.2 L MCV MCH MCHC RDW 17.6 H Plt Count Lymph % (Auto) [place] % (Auto) Lymph # [place] # 1.2 H Baso # Seg Neutrophils % 75.3 H Seg Neuts % (Manual) Lymphocytes % (Manual) Monocytes % (Manual) Eosinophils % (Manual) Basophils % (Manual) Nucleated RBC % Seg Neutrophils # 12.6 H Seg Neutrophils # Man Lymphocytes # (Manual) Monocytes # (Manual) Eosinophils # (Manual) Basophils # (Manual) PT INR Fibrinogen dRVVT Confirm Interp Factor V Activity POC ABG pH POC ABG pCO2 POC ABG pO2 ABG pO2 ABG HCO3 ABG Base Excess ABG Hemoglobin Oxyhemoglobin Sodium Potassium Chloride Carbon Dioxide BUN Creatinine Glucose POC Glucose 134 H 149 H Lactic Acid Calcium Ionized Calcium Phosphorus Magnesium Direct Bilirubin AST ALT Alkaline Phosphatase Lactate Dehydrogenase Troponin T C-Reactive Protein Total Protein Albumin Prealbumin Triglycerides Cholesterol LDL Cholesterol Direct HDL Cholesterol 25-OH Vitamin D Total PTH Intact Urine pH Urine WBC (Auto) Urine Creatinine Urine Total Protein Fluid Total Protein Vancomycin Trough Rheumatoid Factor Complement C4 Miscellaneous Test Crossmatch 12/12/16 12/12/16 12/12/16 17:38 23:01 Unknown WBC RBC Hgb Hct MCV MCH MCHC RDW Plt Count Lymph % (Auto) [place] % (Auto) Lymph # [place] # Baso # Seg Neutrophils % Seg Neuts % (Manual) Lymphocytes % (Manual) Monocytes % (Manual) Eosinophils % (Manual) Basophils % (Manual) Nucleated RBC % Seg Neutrophils # Seg Neutrophils # Man Lymphocytes # (Manual) Monocytes # (Manual) Eosinophils # (Manual) Basophils # (Manual) PT INR Fibrinogen dRVVT Confirm Interp Factor V Activity POC ABG pH POC ABG pCO2 POC ABG pO2 ABG pO2 ABG HCO3 ABG Base Excess ABG Hemoglobin Oxyhemoglobin Sodium Potassium Chloride Carbon Dioxide BUN 60 H Creatinine 1.3 H Glucose 126 H POC Glucose 127 H 144 H Lactic Acid Calcium Ionized Calcium Phosphorus Magnesium Direct Bilirubin AST ALT Alkaline Phosphatase Lactate Dehydrogenase Troponin T C-Reactive Protein Total Protein Albumin Prealbumin Triglycerides Cholesterol LDL Cholesterol Direct HDL Cholesterol 25-OH Vitamin D Total PTH Intact Urine pH Urine WBC (Auto) Urine Creatinine Urine Total Protein Fluid Total Protein Vancomycin Trough Rheumatoid Factor Complement C4 Miscellaneous Test Crossmatch 12/13/16 12/13/16 12/13/16 04:00 04:00 05:19 WBC 18.7 H RBC 2.89 L Hgb 8.3 L Hct 24.6 L MCV MCH MCHC RDW 17.5 H Plt Count Lymph % (Auto) [place] % (Auto) Lymph # [place] # 1.3 H Baso # Seg Neutrophils % 71.5 H Seg Neuts % (Manual) Lymphocytes % (Manual) Monocytes % (Manual) Eosinophils % (Manual) Basophils % (Manual) Nucleated RBC % Seg Neutrophils # 13.4 H Seg Neutrophils # Man Lymphocytes # (Manual) Monocytes # (Manual) Eosinophils # (Manual) Basophils # (Manual) PT INR Fibrinogen dRVVT Confirm Interp Factor V Activity POC ABG pH POC ABG pCO2 POC ABG pO2 ABG pO2 ABG HCO3 ABG Base Excess ABG Hemoglobin Oxyhemoglobin Sodium Potassium Chloride Carbon Dioxide BUN 73 H Creatinine 1.5 H Glucose 141 H POC Glucose 171 H Lactic Acid Calcium Ionized Calcium Phosphorus Magnesium Direct Bilirubin AST ALT Alkaline Phosphatase Lactate Dehydrogenase Troponin T C-Reactive Protein Total Protein Albumin Prealbumin Triglycerides Cholesterol LDL Cholesterol Direct HDL Cholesterol 25-OH Vitamin D Total PTH Intact Urine pH Urine WBC (Auto) Urine Creatinine Urine Total Protein Fluid Total Protein Vancomycin Trough Rheumatoid Factor Complement C4 Miscellaneous Test Crossmatch 12/13/16 12/13/16 12/14/16 12:28 16:48 00:01 WBC RBC Hgb Hct MCV MCH MCHC RDW Plt Count Lymph % (Auto) [place] % (Auto) Lymph # [place] # Baso # Seg Neutrophils % Seg Neuts % (Manual) Lymphocytes % (Manual) Monocytes % (Manual) Eosinophils % (Manual) Basophils % (Manual) Nucleated RBC % Seg Neutrophils # Seg Neutrophils # Man Lymphocytes # (Manual) Monocytes # (Manual) Eosinophils # (Manual) Basophils # (Manual) PT INR Fibrinogen dRVVT Confirm Interp Factor V Activity POC ABG pH POC ABG pCO2 POC ABG pO2 ABG pO2 ABG HCO3 ABG Base Excess ABG Hemoglobin Oxyhemoglobin Sodium Potassium Chloride Carbon Dioxide BUN Creatinine Glucose POC Glucose 206 H 173 H 139 H Lactic Acid Calcium Ionized Calcium Phosphorus Magnesium Direct Bilirubin AST ALT Alkaline Phosphatase Lactate Dehydrogenase Troponin T C-Reactive Protein Total Protein Albumin Prealbumin Triglycerides Cholesterol LDL Cholesterol Direct HDL Cholesterol 25-OH Vitamin D Total PTH Intact Urine pH Urine WBC (Auto) Urine Creatinine Urine Total Protein Fluid Total Protein Vancomycin Trough Rheumatoid Factor Complement C4 Miscellaneous Test Crossmatch 12/14/16 12/14/16 12/14/16 05:16 06:10 11:17 WBC RBC Hgb Hct MCV MCH MCHC RDW Plt Count Lymph % (Auto) [place] % (Auto) Lymph # [place] # Baso # Seg Neutrophils % Seg Neuts % (Manual) Lymphocytes % (Manual) Monocytes % (Manual) Eosinophils % (Manual) Basophils % (Manual) Nucleated RBC % Seg Neutrophils # Seg Neutrophils # Man Lymphocytes # (Manual) Monocytes # (Manual) Eosinophils # (Manual) Basophils # (Manual) PT INR Fibrinogen dRVVT Confirm Interp Factor V Activity POC ABG pH POC ABG pCO2 POC ABG pO2 ABG pO2 ABG HCO3 ABG Base Excess ABG Hemoglobin Oxyhemoglobin Sodium Potassium Chloride Carbon Dioxide BUN 57 H Creatinine 1.4 H Glucose 135 H POC Glucose 158 H 137 H Lactic Acid Calcium Ionized Calcium Phosphorus Magnesium Direct Bilirubin AST ALT Alkaline Phosphatase Lactate Dehydrogenase Troponin T C-Reactive Protein Total Protein Albumin Prealbumin Triglycerides Cholesterol LDL Cholesterol Direct HDL Cholesterol 25-OH Vitamin D Total PTH Intact Urine pH Urine WBC (Auto) Urine Creatinine Urine Total Protein Fluid Total Protein Vancomycin Trough Rheumatoid Factor Complement C4 Miscellaneous Test Crossmatch 12/14/16 12/14/16 12/15/16 17:52 23:27 04:00 WBC RBC Hgb Hct MCV MCH MCHC RDW Plt Count Lymph % (Auto) [place] % (Auto) Lymph # [place] # Baso # Seg Neutrophils % Seg Neuts % (Manual) Lymphocytes % (Manual) Monocytes % (Manual) Eosinophils % (Manual) Basophils % (Manual) Nucleated RBC % Seg Neutrophils # Seg Neutrophils # Man Lymphocytes # (Manual) Monocytes # (Manual) Eosinophils # (Manual) Basophils # (Manual) PT INR Fibrinogen dRVVT Confirm Interp Factor V Activity POC ABG pH POC ABG pCO2 POC ABG pO2 ABG pO2 ABG HCO3 ABG Base Excess ABG Hemoglobin Oxyhemoglobin Sodium Potassium Chloride 97.9 L Carbon Dioxide BUN 75 H Creatinine 1.6 H Glucose 122 H POC Glucose 149 H 163 H Lactic Acid Calcium Ionized Calcium Phosphorus 5.20 H Magnesium Direct Bilirubin AST ALT Alkaline Phosphatase Lactate Dehydrogenase Troponin T C-Reactive Protein Total Protein Albumin Prealbumin Triglycerides Cholesterol LDL Cholesterol Direct HDL Cholesterol 25-OH Vitamin D Total PTH Intact Urine pH Urine WBC (Auto) Urine Creatinine Urine Total Protein Fluid Total Protein Vancomycin Trough Rheumatoid Factor Complement C4 Miscellaneous Test Crossmatch 12/15/16 12/15/16 12/15/16 05:50 11:24 17:01 WBC RBC Hgb Hct MCV MCH MCHC RDW Plt Count Lymph % (Auto) [place] % (Auto) Lymph # [place] # Baso # Seg Neutrophils % Seg Neuts % (Manual) Lymphocytes % (Manual) Monocytes % (Manual) Eosinophils % (Manual) Basophils % (Manual) Nucleated RBC % Seg Neutrophils # Seg Neutrophils # Man Lymphocytes # (Manual) Monocytes # (Manual) Eosinophils # (Manual) Basophils # (Manual) PT INR Fibrinogen dRVVT Confirm Interp Factor V Activity POC ABG pH POC ABG pCO2 POC ABG pO2 ABG pO2 ABG HCO3 ABG Base Excess ABG Hemoglobin Oxyhemoglobin Sodium Potassium Chloride Carbon Dioxide BUN Creatinine Glucose POC Glucose 150 H 146 H 167 H Lactic Acid Calcium Ionized Calcium Phosphorus Magnesium Direct Bilirubin AST ALT Alkaline Phosphatase Lactate Dehydrogenase Troponin T C-Reactive Protein Total Protein Albumin Prealbumin Triglycerides Cholesterol LDL Cholesterol Direct HDL Cholesterol 25-OH Vitamin D Total PTH Intact Urine pH Urine WBC (Auto) Urine Creatinine Urine Total Protein Fluid Total Protein Vancomycin Trough Rheumatoid Factor Complement C4 Miscellaneous Test Crossmatch 12/15/16 12/16/16 12/16/16 23:34 05:25 11:24 WBC RBC Hgb Hct MCV MCH MCHC RDW Plt Count Lymph % (Auto) [place] % (Auto) Lymph # [place] # Baso # Seg Neutrophils % Seg Neuts % (Manual) Lymphocytes % (Manual) Monocytes % (Manual) Eosinophils % (Manual) Basophils % (Manual) Nucleated RBC % Seg Neutrophils # Seg Neutrophils # Man Lymphocytes # (Manual) Monocytes # (Manual) Eosinophils # (Manual) Basophils # (Manual) PT INR Fibrinogen dRVVT Confirm Interp Factor V Activity POC ABG pH POC ABG pCO2 POC ABG pO2 ABG pO2 ABG HCO3 ABG Base Excess ABG Hemoglobin Oxyhemoglobin Sodium Potassium Chloride Carbon Dioxide BUN Creatinine Glucose POC Glucose 127 H 139 H 165 H Lactic Acid Calcium Ionized Calcium Phosphorus Magnesium Direct Bilirubin AST ALT Alkaline Phosphatase Lactate Dehydrogenase Troponin T C-Reactive Protein Total Protein Albumin Prealbumin Triglycerides Cholesterol LDL Cholesterol Direct HDL Cholesterol 25-OH Vitamin D Total PTH Intact Urine pH Urine WBC (Auto) Urine Creatinine Urine Total Protein Fluid Total Protein Vancomycin Trough Rheumatoid Factor Complement C4 Miscellaneous Test Crossmatch 12/16/16 12/16/16 12/16/16 15:30 16:25 17:31 WBC 17.8 H RBC 2.38 L Hgb 6.4 L Hct 20.3 L MCV MCH 27 L MCHC RDW 17.4 H Plt Count Lymph % (Auto) [place] % (Auto) Lymph # [place] # Baso # Seg Neutrophils % Seg Neuts % (Manual) Lymphocytes % (Manual) Monocytes % (Manual) 10.0 H Eosinophils % (Manual) Basophils % (Manual) Nucleated RBC % Seg Neutrophils # Seg Neutrophils # Man 8.5 H Lymphocytes # (Manual) Monocytes # (Manual) 1.8 H Eosinophils # (Manual) Basophils # (Manual) PT INR Fibrinogen dRVVT Confirm Interp Factor V Activity POC ABG pH POC ABG pCO2 POC ABG pO2 ABG pO2 ABG HCO3 ABG Base Excess ABG Hemoglobin Oxyhemoglobin Sodium Potassium Chloride Carbon Dioxide BUN Creatinine Glucose POC Glucose 176 H Lactic Acid Calcium Ionized Calcium Phosphorus Magnesium Direct Bilirubin AST ALT Alkaline Phosphatase Lactate Dehydrogenase Troponin T C-Reactive Protein Total Protein Albumin Prealbumin Triglycerides Cholesterol LDL Cholesterol Direct HDL Cholesterol 25-OH Vitamin D Total PTH Intact Urine pH Urine WBC (Auto) Urine Creatinine Urine Total Protein Fluid Total Protein Vancomycin Trough Rheumatoid Factor Complement C4 Miscellaneous Test Crossmatch See Detail 12/17/16 12/17/16 12/17/16 00:14 04:00 05:00 WBC 20.0 H RBC 2.99 L Hgb 8.5 L Hct 25.7 L MCV MCH MCHC RDW 17.2 H Plt Count Lymph % (Auto) [place] % (Auto) Lymph # [place] # Baso # Seg Neutrophils % Seg Neuts % (Manual) Lymphocytes % (Manual) Monocytes % (Manual) Eosinophils % (Manual) Basophils % (Manual) Nucleated RBC % Seg Neutrophils # Seg Neutrophils # Man Lymphocytes # (Manual) Monocytes # (Manual) Eosinophils # (Manual) Basophils # (Manual) PT INR Fibrinogen dRVVT Confirm Interp Factor V Activity POC ABG pH POC ABG pCO2 POC ABG pO2 ABG pO2 ABG HCO3 ABG Base Excess ABG Hemoglobin Oxyhemoglobin Sodium Potassium Chloride 97.7 L Carbon Dioxide BUN 73 H Creatinine 1.7 H Glucose 136 H POC Glucose 148 H Lactic Acid Calcium Ionized Calcium Phosphorus 2.20 L Magnesium 2.70 H Direct Bilirubin AST ALT Alkaline Phosphatase Lactate Dehydrogenase Troponin T C-Reactive Protein Total Protein Albumin Prealbumin Triglycerides Cholesterol LDL Cholesterol Direct HDL Cholesterol 25-OH Vitamin D Total PTH Intact Urine pH Urine WBC (Auto) Urine Creatinine Urine Total Protein Fluid Total Protein Vancomycin Trough Rheumatoid Factor Complement C4 Miscellaneous Test Crossmatch 12/17/16 12/17/16 12/17/16 05:39 12:50 16:32 WBC RBC Hgb Hct MCV MCH MCHC RDW Plt Count Lymph % (Auto) [place] % (Auto) Lymph # [place] # Baso # Seg Neutrophils % Seg Neuts % (Manual) Lymphocytes % (Manual) Monocytes % (Manual) Eosinophils % (Manual) Basophils % (Manual) Nucleated RBC % Seg Neutrophils # Seg Neutrophils # Man Lymphocytes # (Manual) Monocytes # (Manual) Eosinophils # (Manual) Basophils # (Manual) PT INR Fibrinogen dRVVT Confirm Interp Factor V Activity POC ABG pH POC ABG pCO2 POC ABG pO2 ABG pO2 ABG HCO3 ABG Base Excess ABG Hemoglobin Oxyhemoglobin Sodium Potassium Chloride Carbon Dioxide BUN Creatinine Glucose POC Glucose 162 H 146 H 169 H Lactic Acid Calcium Ionized Calcium Phosphorus Magnesium Direct Bilirubin AST ALT Alkaline Phosphatase Lactate Dehydrogenase Troponin T C-Reactive Protein Total Protein Albumin Prealbumin Triglycerides Cholesterol LDL Cholesterol Direct HDL Cholesterol 25-OH Vitamin D Total PTH Intact Urine pH Urine WBC (Auto) Urine Creatinine Urine Total Protein Fluid Total Protein Vancomycin Trough Rheumatoid Factor Complement C4 Miscellaneous Test Crossmatch 12/17/16 12/18/16 12/18/16 23:57 05:00 05:32 WBC RBC Hgb Hct MCV MCH MCHC RDW Plt Count Lymph % (Auto) [place] % (Auto) Lymph # [place] # Baso # Seg Neutrophils % Seg Neuts % (Manual) Lymphocytes % (Manual) Monocytes % (Manual) Eosinophils % (Manual) Basophils % (Manual) Nucleated RBC % Seg Neutrophils # Seg Neutrophils # Man Lymphocytes # (Manual) Monocytes # (Manual) Eosinophils # (Manual) Basophils # (Manual) PT INR Fibrinogen dRVVT Confirm Interp Factor V Activity POC ABG pH POC ABG pCO2 POC ABG pO2 ABG pO2 ABG HCO3 ABG Base Excess ABG Hemoglobin Oxyhemoglobin Sodium Potassium Chloride 97.0 L Carbon Dioxide BUN 63 H Creatinine 1.4 H Glucose 174 H POC Glucose 145 H 201 H Lactic Acid Calcium Ionized Calcium Phosphorus 1.70 L D Magnesium Direct Bilirubin AST ALT Alkaline Phosphatase 257 H Lactate Dehydrogenase Troponin T C-Reactive Protein Total Protein 5.9 L Albumin 1.8 L Prealbumin Triglycerides Cholesterol LDL Cholesterol Direct HDL Cholesterol 25-OH Vitamin D Total PTH Intact Urine pH Urine WBC (Auto) Urine Creatinine Urine Total Protein Fluid Total Protein Vancomycin Trough Rheumatoid Factor Complement C4 Miscellaneous Test Crossmatch 12/18/16 12/18/16 12/18/16 11:43 16:52 23:52 WBC RBC Hgb Hct MCV MCH MCHC RDW Plt Count Lymph % (Auto) [place] % (Auto) Lymph # [place] # Baso # Seg Neutrophils % Seg Neuts % (Manual) Lymphocytes % (Manual) Monocytes % (Manual) Eosinophils % (Manual) Basophils % (Manual) Nucleated RBC % Seg Neutrophils # Seg Neutrophils # Man Lymphocytes # (Manual) Monocytes # (Manual) Eosinophils # (Manual) Basophils # (Manual) PT INR Fibrinogen dRVVT Confirm Interp Factor V Activity POC ABG pH POC ABG pCO2 POC ABG pO2 ABG pO2 ABG HCO3 ABG Base Excess ABG Hemoglobin Oxyhemoglobin Sodium Potassium Chloride Carbon Dioxide BUN Creatinine Glucose POC Glucose 177 H 110 H 162 H Lactic Acid Calcium Ionized Calcium Phosphorus Magnesium Direct Bilirubin AST ALT Alkaline Phosphatase Lactate Dehydrogenase Troponin T C-Reactive Protein Total Protein Albumin Prealbumin Triglycerides Cholesterol LDL Cholesterol Direct HDL Cholesterol 25-OH Vitamin D Total PTH Intact Urine pH Urine WBC (Auto) Urine Creatinine Urine Total Protein Fluid Total Protein Vancomycin Trough Rheumatoid Factor Complement C4 Miscellaneous Test Crossmatch 12/19/16 12/19/16 12/19/16 05:02 05:24 09:30 WBC 20.1 H RBC 2.73 L Hgb 7.6 L Hct 23.6 L MCV MCH MCHC RDW 17.6 H Plt Count Lymph % (Auto) [place] % (Auto) Lymph # [place] # Baso # Seg Neutrophils % Seg Neuts % (Manual) Lymphocytes % (Manual) 13.0 L Monocytes % (Manual) Eosinophils % (Manual) Basophils % (Manual) Nucleated RBC % 1.0 H Seg Neutrophils # Seg Neutrophils # Man 12.9 H Lymphocytes # (Manual) Monocytes # (Manual) 1.4 H Eosinophils # (Manual) Basophils # (Manual) 0.2 H PT INR Fibrinogen dRVVT Confirm Interp Factor V Activity POC ABG pH POC ABG pCO2 POC ABG pO2 ABG pO2 ABG HCO3 ABG Base Excess ABG Hemoglobin Oxyhemoglobin Sodium Potassium Chloride 97.8 L Carbon Dioxide BUN 84 H Creatinine 1.6 H Glucose 133 H POC Glucose 134 H Lactic Acid Calcium Ionized Calcium Phosphorus Magnesium Direct Bilirubin AST ALT Alkaline Phosphatase Lactate Dehydrogenase Troponin T C-Reactive Protein Total Protein Albumin Prealbumin Triglycerides Cholesterol LDL Cholesterol Direct HDL Cholesterol 25-OH Vitamin D Total PTH Intact Urine pH Urine WBC (Auto) Urine Creatinine Urine Total Protein Fluid Total Protein Vancomycin Trough Rheumatoid Factor Complement C4 Miscellaneous Test Crossmatch 12/19/16 12/19/16 12/19/16 09:36 11:12 18:29 WBC RBC Hgb Hct MCV MCH MCHC RDW Plt Count Lymph % (Auto) [place] % (Auto) Lymph # [place] # Baso # Seg Neutrophils % Seg Neuts % (Manual) Lymphocytes % (Manual) Monocytes % (Manual) Eosinophils % (Manual) Basophils % (Manual) Nucleated RBC % Seg Neutrophils # Seg Neutrophils # Man Lymphocytes # (Manual) Monocytes # (Manual) Eosinophils # (Manual) Basophils # (Manual) PT INR Fibrinogen dRVVT Confirm Interp Factor V Activity POC ABG pH 7.503 H POC ABG pCO2 30.1 L POC ABG pO2 ABG pO2 ABG HCO3 ABG Base Excess ABG Hemoglobin Oxyhemoglobin Sodium Potassium Chloride Carbon Dioxide BUN Creatinine Glucose POC Glucose 138 H 156 H Lactic Acid Calcium Ionized Calcium Phosphorus Magnesium Direct Bilirubin AST ALT Alkaline Phosphatase Lactate Dehydrogenase Troponin T C-Reactive Protein Total Protein Albumin Prealbumin Triglycerides Cholesterol LDL Cholesterol Direct HDL Cholesterol 25-OH Vitamin D Total PTH Intact Urine pH Urine WBC (Auto) Urine Creatinine Urine Total Protein Fluid Total Protein Vancomycin Trough Rheumatoid Factor Complement C4 Miscellaneous Test Crossmatch 12/20/16 12/20/16 12/20/16 00:03 06:17 07:07 WBC RBC Hgb Hct MCV MCH MCHC RDW Plt Count Lymph % (Auto) [place] % (Auto) Lymph # [place] # Baso # Seg Neutrophils % Seg Neuts % (Manual) Lymphocytes % (Manual) Monocytes % (Manual) Eosinophils % (Manual) Basophils % (Manual) Nucleated RBC % Seg Neutrophils # Seg Neutrophils # Man Lymphocytes # (Manual) Monocytes # (Manual) Eosinophils # (Manual) Basophils # (Manual) PT INR Fibrinogen dRVVT Confirm Interp Factor V Activity POC ABG pH POC ABG pCO2 POC ABG pO2 ABG pO2 ABG HCO3 ABG Base Excess ABG Hemoglobin Oxyhemoglobin Sodium Potassium Chloride 97.1 L Carbon Dioxide 20 L BUN 97 H Creatinine 1.8 H Glucose 153 H POC Glucose 152 H 175 H Lactic Acid Calcium Ionized Calcium Phosphorus Magnesium Direct Bilirubin AST ALT Alkaline Phosphatase Lactate Dehydrogenase Troponin T C-Reactive Protein Total Protein Albumin Prealbumin Triglycerides Cholesterol LDL Cholesterol Direct HDL Cholesterol 25-OH Vitamin D Total PTH Intact Urine pH Urine WBC (Auto) Urine Creatinine Urine Total Protein Fluid Total Protein Vancomycin Trough Rheumatoid Factor Complement C4 Miscellaneous Test Crossmatch 12/20/16 12/20/16 12/20/16 12:00 17:42 23:53 WBC RBC Hgb Hct MCV MCH MCHC RDW Plt Count Lymph % (Auto) [place] % (Auto) Lymph # [place] # Baso # Seg Neutrophils % Seg Neuts % (Manual) Lymphocytes % (Manual) Monocytes % (Manual) Eosinophils % (Manual) Basophils % (Manual) Nucleated RBC % Seg Neutrophils # Seg Neutrophils # Man Lymphocytes # (Manual) Monocytes # (Manual) Eosinophils # (Manual) Basophils # (Manual) PT INR Fibrinogen dRVVT Confirm Interp Factor V Activity POC ABG pH POC ABG pCO2 POC ABG pO2 ABG pO2 ABG HCO3 ABG Base Excess ABG Hemoglobin Oxyhemoglobin Sodium Potassium Chloride Carbon Dioxide BUN Creatinine Glucose POC Glucose 141 H 156 H 132 H Lactic Acid Calcium Ionized Calcium Phosphorus Magnesium Direct Bilirubin AST ALT Alkaline Phosphatase Lactate Dehydrogenase Troponin T C-Reactive Protein Total Protein Albumin Prealbumin Triglycerides Cholesterol LDL Cholesterol Direct HDL Cholesterol 25-OH Vitamin D Total PTH Intact Urine pH Urine WBC (Auto) Urine Creatinine Urine Total Protein Fluid Total Protein Vancomycin Trough Rheumatoid Factor Complement C4 Miscellaneous Test Crossmatch 12/21/16 12/21/16 12/21/16 05:49 08:50 12:19 WBC RBC Hgb Hct MCV MCH MCHC RDW Plt Count Lymph % (Auto) [place] % (Auto) Lymph # [place] # Baso # Seg Neutrophils % Seg Neuts % (Manual) Lymphocytes % (Manual) Monocytes % (Manual) Eosinophils % (Manual) Basophils % (Manual) Nucleated RBC % Seg Neutrophils # Seg Neutrophils # Man Lymphocytes # (Manual) Monocytes # (Manual) Eosinophils # (Manual) Basophils # (Manual) PT INR Fibrinogen dRVVT Confirm Interp Factor V Activity POC ABG pH POC ABG pCO2 POC ABG pO2 ABG pO2 ABG HCO3 ABG Base Excess ABG Hemoglobin Oxyhemoglobin Sodium Potassium 5.2 H D Chloride Carbon Dioxide BUN 63 H Creatinine Glucose 122 H POC Glucose 132 H 136 H Lactic Acid Calcium 8.3 L Ionized Calcium Phosphorus Magnesium Direct Bilirubin AST ALT Alkaline Phosphatase Lactate Dehydrogenase Troponin T C-Reactive Protein Total Protein Albumin Prealbumin Triglycerides Cholesterol LDL Cholesterol Direct HDL Cholesterol 25-OH Vitamin D Total PTH Intact Urine pH Urine WBC (Auto) Urine Creatinine Urine Total Protein Fluid Total Protein Vancomycin Trough Rheumatoid Factor Complement C4 Miscellaneous Test Crossmatch 12/21/16 12/21/16 12/22/16 17:22 23:58 05:49 WBC RBC Hgb Hct MCV MCH MCHC RDW Plt Count Lymph % (Auto) [place] % (Auto) Lymph # [place] # Baso # Seg Neutrophils % Seg Neuts % (Manual) Lymphocytes % (Manual) Monocytes % (Manual) Eosinophils % (Manual) Basophils % (Manual) Nucleated RBC % Seg Neutrophils # Seg Neutrophils # Man Lymphocytes # (Manual) Monocytes # (Manual) Eosinophils # (Manual) Basophils # (Manual) PT INR Fibrinogen dRVVT Confirm Interp Factor V Activity POC ABG pH POC ABG pCO2 POC ABG pO2 ABG pO2 ABG HCO3 ABG Base Excess ABG Hemoglobin Oxyhemoglobin Sodium Potassium Chloride Carbon Dioxide BUN Creatinine Glucose POC Glucose 135 H 149 H 140 H Lactic Acid Calcium Ionized Calcium Phosphorus Magnesium Direct Bilirubin AST ALT Alkaline Phosphatase Lactate Dehydrogenase Troponin T C-Reactive Protein Total Protein Albumin Prealbumin Triglycerides Cholesterol LDL Cholesterol Direct HDL Cholesterol 25-OH Vitamin D Total PTH Intact Urine pH Urine WBC (Auto) Urine Creatinine Urine Total Protein Fluid Total Protein Vancomycin Trough Rheumatoid Factor Complement C4 Miscellaneous Test Crossmatch 12/22/16 12/22/16 12/22/16 06:10 11:17 17:31 WBC RBC Hgb Hct MCV MCH MCHC RDW Plt Count Lymph % (Auto) [place] % (Auto) Lymph # [place] # Baso # Seg Neutrophils % Seg Neuts % (Manual) Lymphocytes % (Manual) Monocytes % (Manual) Eosinophils % (Manual) Basophils % (Manual) Nucleated RBC % Seg Neutrophils # Seg Neutrophils # Man Lymphocytes # (Manual) Monocytes # (Manual) Eosinophils # (Manual) Basophils # (Manual) PT INR Fibrinogen dRVVT Confirm Interp Factor V Activity POC ABG pH POC ABG pCO2 POC ABG pO2 ABG pO2 ABG HCO3 ABG Base Excess ABG Hemoglobin Oxyhemoglobin Sodium Potassium Chloride Carbon Dioxide BUN 76 H Creatinine 1.5 H Glucose 241 H POC Glucose 193 H 148 H Lactic Acid Calcium Ionized Calcium Phosphorus Magnesium Direct Bilirubin AST ALT Alkaline Phosphatase Lactate Dehydrogenase Troponin T C-Reactive Protein Total Protein Albumin Prealbumin Triglycerides Cholesterol LDL Cholesterol Direct HDL Cholesterol 25-OH Vitamin D Total PTH Intact Urine pH Urine WBC (Auto) Urine Creatinine Urine Total Protein Fluid Total Protein Vancomycin Trough Rheumatoid Factor Complement C4 Miscellaneous Test Crossmatch 12/22/16 12/23/16 12/23/16 23:58 05:00 05:26 WBC RBC Hgb Hct MCV MCH MCHC RDW Plt Count Lymph % (Auto) [place] % (Auto) Lymph # [place] # Baso # Seg Neutrophils % Seg Neuts % (Manual) Lymphocytes % (Manual) Monocytes % (Manual) Eosinophils % (Manual) Basophils % (Manual) Nucleated RBC % Seg Neutrophils # Seg Neutrophils # Man Lymphocytes # (Manual) Monocytes # (Manual) Eosinophils # (Manual) Basophils # (Manual) PT INR Fibrinogen dRVVT Confirm Interp Factor V Activity POC ABG pH POC ABG pCO2 POC ABG pO2 ABG pO2 ABG HCO3 ABG Base Excess ABG Hemoglobin Oxyhemoglobin Sodium Potassium Chloride Carbon Dioxide BUN 49 H Creatinine Glucose 143 H POC Glucose 165 H 154 H Lactic Acid Calcium 8.2 L Ionized Calcium Phosphorus Magnesium 1.60 L Direct Bilirubin AST ALT Alkaline Phosphatase Lactate Dehydrogenase Troponin T C-Reactive Protein Total Protein Albumin Prealbumin Triglycerides Cholesterol LDL Cholesterol Direct HDL Cholesterol 25-OH Vitamin D Total PTH Intact Urine pH Urine WBC (Auto) Urine Creatinine Urine Total Protein Fluid Total Protein Vancomycin Trough Rheumatoid Factor Complement C4 Miscellaneous Test Crossmatch 12/23/16 12/23/16 12/24/16 12:35 17:01 00:01 WBC RBC Hgb Hct MCV MCH MCHC RDW Plt Count Lymph % (Auto) [place] % (Auto) Lymph # [place] # Baso # Seg Neutrophils % Seg Neuts % (Manual) Lymphocytes % (Manual) Monocytes % (Manual) Eosinophils % (Manual) Basophils % (Manual) Nucleated RBC % Seg Neutrophils # Seg Neutrophils # Man Lymphocytes # (Manual) Monocytes # (Manual) Eosinophils # (Manual) Basophils # (Manual) PT INR Fibrinogen dRVVT Confirm Interp Factor V Activity POC ABG pH POC ABG pCO2 POC ABG pO2 ABG pO2 ABG HCO3 ABG Base Excess ABG Hemoglobin Oxyhemoglobin Sodium Potassium Chloride Carbon Dioxide BUN Creatinine Glucose POC Glucose 164 H 149 H 135 H Lactic Acid Calcium Ionized Calcium Phosphorus Magnesium Direct Bilirubin AST ALT Alkaline Phosphatase Lactate Dehydrogenase Troponin T C-Reactive Protein Total Protein Albumin Prealbumin Triglycerides Cholesterol LDL Cholesterol Direct HDL Cholesterol 25-OH Vitamin D Total PTH Intact Urine pH Urine WBC (Auto) Urine Creatinine Urine Total Protein Fluid Total Protein Vancomycin Trough Rheumatoid Factor Complement C4 Miscellaneous Test Crossmatch 12/24/16 12/24/16 12/24/16 05:41 07:01 11:38 WBC RBC Hgb Hct MCV MCH MCHC RDW Plt Count Lymph % (Auto) [place] % (Auto) Lymph # [place] # Baso # Seg Neutrophils % Seg Neuts % (Manual) Lymphocytes % (Manual) Monocytes % (Manual) Eosinophils % (Manual) Basophils % (Manual) Nucleated RBC % Seg Neutrophils # Seg Neutrophils # Man Lymphocytes # (Manual) Monocytes # (Manual) Eosinophils # (Manual) Basophils # (Manual) PT INR Fibrinogen dRVVT Confirm Interp Factor V Activity POC ABG pH POC ABG pCO2 POC ABG pO2 ABG pO2 ABG HCO3 ABG Base Excess ABG Hemoglobin Oxyhemoglobin Sodium Potassium Chloride Carbon Dioxide BUN 72 H Creatinine 1.3 H Glucose 130 H POC Glucose 132 H 156 H Lactic Acid Calcium 8.2 L Ionized Calcium Phosphorus Magnesium Direct Bilirubin AST ALT Alkaline Phosphatase Lactate Dehydrogenase Troponin T C-Reactive Protein Total Protein Albumin Prealbumin Triglycerides Cholesterol LDL Cholesterol Direct HDL Cholesterol 25-OH Vitamin D Total PTH Intact Urine pH Urine WBC (Auto) Urine Creatinine Urine Total Protein Fluid Total Protein Vancomycin Trough Rheumatoid Factor Complement C4 Miscellaneous Test Crossmatch 12/24/16 12/25/16 12/25/16 17:53 00:23 05:45 WBC RBC Hgb Hct MCV MCH MCHC RDW Plt Count Lymph % (Auto) [place] % (Auto) Lymph # [place] # Baso # Seg Neutrophils % Seg Neuts % (Manual) Lymphocytes % (Manual) Monocytes % (Manual) Eosinophils % (Manual) Basophils % (Manual) Nucleated RBC % Seg Neutrophils # Seg Neutrophils # Man Lymphocytes # (Manual) Monocytes # (Manual) Eosinophils # (Manual) Basophils # (Manual) PT INR Fibrinogen dRVVT Confirm Interp Factor V Activity POC ABG pH POC ABG pCO2 POC ABG pO2 ABG pO2 ABG HCO3 ABG Base Excess ABG Hemoglobin Oxyhemoglobin Sodium 146 H Potassium Chloride Carbon Dioxide BUN 51 H Creatinine Glucose 109 H POC Glucose 169 H 117 H Lactic Acid Calcium Ionized Calcium Phosphorus Magnesium Direct Bilirubin AST ALT Alkaline Phosphatase Lactate Dehydrogenase Troponin T C-Reactive Protein Total Protein Albumin Prealbumin Triglycerides Cholesterol LDL Cholesterol Direct HDL Cholesterol 25-OH Vitamin D Total PTH Intact Urine pH Urine WBC (Auto) Urine Creatinine Urine Total Protein Fluid Total Protein Vancomycin Trough Rheumatoid Factor Complement C4 Miscellaneous Test Crossmatch 12/25/16 12/25/16 12/25/16 06:43 11:29 17:14 WBC RBC Hgb Hct MCV MCH MCHC RDW Plt Count Lymph % (Auto) [place] % (Auto) Lymph # [place] # Baso # Seg Neutrophils % Seg Neuts % (Manual) Lymphocytes % (Manual) Monocytes % (Manual) Eosinophils % (Manual) Basophils % (Manual) Nucleated RBC % Seg Neutrophils # Seg Neutrophils # Man Lymphocytes # (Manual) Monocytes # (Manual) Eosinophils # (Manual) Basophils # (Manual) PT INR Fibrinogen dRVVT Confirm Interp Factor V Activity POC ABG pH POC ABG pCO2 POC ABG pO2 ABG pO2 ABG HCO3 ABG Base Excess ABG Hemoglobin Oxyhemoglobin Sodium Potassium Chloride Carbon Dioxide BUN Creatinine Glucose POC Glucose 117 H 128 H 120 H Lactic Acid Calcium Ionized Calcium Phosphorus Magnesium Direct Bilirubin AST ALT Alkaline Phosphatase Lactate Dehydrogenase Troponin T C-Reactive Protein Total Protein Albumin Prealbumin Triglycerides Cholesterol LDL Cholesterol Direct HDL Cholesterol 25-OH Vitamin D Total PTH Intact Urine pH Urine WBC (Auto) Urine Creatinine Urine Total Protein Fluid Total Protein Vancomycin Trough Rheumatoid Factor Complement C4 Miscellaneous Test Crossmatch 12/25/16 12/26/16 12/26/16 23:54 05:40 05:50 WBC 16.2 H RBC 2.32 L Hgb 6.2 L Hct 20.1 L MCV MCH 27 L MCHC RDW 18.6 H Plt Count Lymph % (Auto) [place] % (Auto) Lymph # [place] # Baso # Seg Neutrophils % Seg Neuts % (Manual) Lymphocytes % (Manual) Monocytes % (Manual) Eosinophils % (Manual) Basophils % (Manual) Nucleated RBC % Seg Neutrophils # Seg Neutrophils # Man Lymphocytes # (Manual) Monocytes # (Manual) Eosinophils # (Manual) Basophils # (Manual) PT INR Fibrinogen dRVVT Confirm Interp Factor V Activity POC ABG pH POC ABG pCO2 POC ABG pO2 ABG pO2 ABG HCO3 ABG Base Excess ABG Hemoglobin Oxyhemoglobin Sodium Potassium Chloride Carbon Dioxide BUN Creatinine Glucose POC Glucose 126 H 132 H Lactic Acid Calcium Ionized Calcium Phosphorus Magnesium Direct Bilirubin AST ALT Alkaline Phosphatase Lactate Dehydrogenase Troponin T C-Reactive Protein Total Protein Albumin Prealbumin Triglycerides Cholesterol LDL Cholesterol Direct HDL Cholesterol 25-OH Vitamin D Total PTH Intact Urine pH Urine WBC (Auto) Urine Creatinine Urine Total Protein Fluid Total Protein Vancomycin Trough Rheumatoid Factor Complement C4 Miscellaneous Test Crossmatch 12/26/16 12/26/16 12/26/16 05:50 12:17 12:33 WBC RBC Hgb Hct MCV MCH MCHC RDW Plt Count Lymph % (Auto) [place] % (Auto) Lymph # [place] # Baso # Seg Neutrophils % Seg Neuts % (Manual) Lymphocytes % (Manual) Monocytes % (Manual) Eosinophils % (Manual) Basophils % (Manual) Nucleated RBC % Seg Neutrophils # Seg Neutrophils # Man Lymphocytes # (Manual) Monocytes # (Manual) Eosinophils # (Manual) Basophils # (Manual) PT INR Fibrinogen dRVVT Confirm Interp Factor V Activity POC ABG pH POC ABG pCO2 POC ABG pO2 ABG pO2 ABG HCO3 ABG Base Excess ABG Hemoglobin Oxyhemoglobin Sodium Potassium Chloride Carbon Dioxide BUN 73 H Creatinine 1.3 H Glucose 113 H POC Glucose 117 H Lactic Acid Calcium Ionized Calcium Phosphorus Magnesium Direct Bilirubin AST ALT Alkaline Phosphatase Lactate Dehydrogenase Troponin T C-Reactive Protein Total Protein Albumin Prealbumin Triglycerides Cholesterol LDL Cholesterol Direct HDL Cholesterol 25-OH Vitamin D Total PTH Intact Urine pH Urine WBC (Auto) Urine Creatinine Urine Total Protein Fluid Total Protein Vancomycin Trough Rheumatoid Factor Complement C4 Miscellaneous Test Crossmatch See Detail 12/26/16 12/26/16 12/27/16 20:00 23:21 05:00 WBC RBC Hgb 8.4 L Hct 26.3 L D MCV MCH MCHC RDW Plt Count Lymph % (Auto) [place] % (Auto) Lymph # [place] # Baso # Seg Neutrophils % Seg Neuts % (Manual) Lymphocytes % (Manual) Monocytes % (Manual) Eosinophils % (Manual) Basophils % (Manual) Nucleated RBC % Seg Neutrophils # Seg Neutrophils # Man Lymphocytes # (Manual) Monocytes # (Manual) Eosinophils # (Manual) Basophils # (Manual) PT INR Fibrinogen dRVVT Confirm Interp Factor V Activity POC ABG pH POC ABG pCO2 POC ABG pO2 ABG pO2 ABG HCO3 ABG Base Excess ABG Hemoglobin Oxyhemoglobin Sodium Potassium Chloride Carbon Dioxide BUN 85 H Creatinine 1.6 H Glucose 118 H POC Glucose 124 H Lactic Acid Calcium Ionized Calcium Phosphorus 4.80 H Magnesium Direct Bilirubin AST ALT Alkaline Phosphatase Lactate Dehydrogenase Troponin T C-Reactive Protein Total Protein Albumin Prealbumin Triglycerides Cholesterol LDL Cholesterol Direct HDL Cholesterol 25-OH Vitamin D Total PTH Intact Urine pH Urine WBC (Auto) Urine Creatinine Urine Total Protein Fluid Total Protein Vancomycin Trough Rheumatoid Factor Complement C4 Miscellaneous Test Crossmatch 12/27/16 12/27/16 12/27/16 05:00 05:35 12:24 WBC RBC Hgb 7.6 L Hct 22.8 L MCV MCH MCHC RDW Plt Count Lymph % (Auto) [place] % (Auto) Lymph # [place] # Baso # Seg Neutrophils % Seg Neuts % (Manual) Lymphocytes % (Manual) Monocytes % (Manual) Eosinophils % (Manual) Basophils % (Manual) Nucleated RBC % Seg Neutrophils # Seg Neutrophils # Man Lymphocytes # (Manual) Monocytes # (Manual) Eosinophils # (Manual) Basophils # (Manual) PT INR Fibrinogen dRVVT Confirm Interp Factor V Activity POC ABG pH POC ABG pCO2 POC ABG pO2 ABG pO2 ABG HCO3 ABG Base Excess ABG Hemoglobin Oxyhemoglobin Sodium Potassium Chloride Carbon Dioxide BUN Creatinine Glucose POC Glucose 115 H 131 H Lactic Acid Calcium Ionized Calcium Phosphorus Magnesium Direct Bilirubin AST ALT Alkaline Phosphatase Lactate Dehydrogenase Troponin T C-Reactive Protein Total Protein Albumin Prealbumin Triglycerides Cholesterol LDL Cholesterol Direct HDL Cholesterol 25-OH Vitamin D Total PTH Intact Urine pH Urine WBC (Auto) Urine Creatinine Urine Total Protein Fluid Total Protein Vancomycin Trough Rheumatoid Factor Complement C4 Miscellaneous Test Crossmatch 12/27/16 12/28/16 12/28/16 17:16 00:18 04:00 WBC RBC Hgb Hct MCV MCH MCHC RDW Plt Count Lymph % (Auto) [place] % (Auto) Lymph # [place] # Baso # Seg Neutrophils % Seg Neuts % (Manual) Lymphocytes % (Manual) Monocytes % (Manual) Eosinophils % (Manual) Basophils % (Manual) Nucleated RBC % Seg Neutrophils # Seg Neutrophils # Man Lymphocytes # (Manual) Monocytes # (Manual) Eosinophils # (Manual) Basophils # (Manual) PT INR Fibrinogen dRVVT Confirm Interp Factor V Activity POC ABG pH POC ABG pCO2 POC ABG pO2 ABG pO2 ABG HCO3 ABG Base Excess ABG Hemoglobin Oxyhemoglobin Sodium Potassium 3.5 L Chloride Carbon Dioxide BUN 57 H Creatinine Glucose 118 H POC Glucose 136 H 120 H Lactic Acid Calcium 8.3 L Ionized Calcium Phosphorus Magnesium Direct Bilirubin AST ALT Alkaline Phosphatase Lactate Dehydrogenase Troponin T C-Reactive Protein Total Protein Albumin Prealbumin Triglycerides Cholesterol LDL Cholesterol Direct HDL Cholesterol 25-OH Vitamin D Total PTH Intact Urine pH Urine WBC (Auto) Urine Creatinine Urine Total Protein Fluid Total Protein Vancomycin Trough Rheumatoid Factor Complement C4 Miscellaneous Test Crossmatch 12/28/16 12/28/16 12/28/16 04:00 05:11 08:30 WBC 17.0 H RBC 2.58 L Hgb 7.1 L Hct 22.0 L MCV MCH MCHC RDW 17.6 H Plt Count Lymph % (Auto) 12.2 L [place] % (Auto) Lymph # [place] # 1.1 H Baso # Seg Neutrophils % 80.5 H Seg Neuts % (Manual) Lymphocytes % (Manual) Monocytes % (Manual) Eosinophils % (Manual) Basophils % (Manual) Nucleated RBC % Seg Neutrophils # 13.7 H Seg Neutrophils # Man Lymphocytes # (Manual) Monocytes # (Manual) Eosinophils # (Manual) Basophils # (Manual) PT 16.1 H INR 1.23 H Fibrinogen dRVVT Confirm Interp Factor V Activity POC ABG pH POC ABG pCO2 POC ABG pO2 ABG pO2 ABG HCO3 ABG Base Excess ABG Hemoglobin Oxyhemoglobin Sodium Potassium Chloride Carbon Dioxide BUN Creatinine Glucose POC Glucose 122 H Lactic Acid Calcium Ionized Calcium Phosphorus Magnesium Direct Bilirubin AST ALT Alkaline Phosphatase Lactate Dehydrogenase Troponin T C-Reactive Protein Total Protein Albumin Prealbumin Triglycerides Cholesterol LDL Cholesterol Direct HDL Cholesterol 25-OH Vitamin D Total PTH Intact Urine pH Urine WBC (Auto) Urine Creatinine Urine Total Protein Fluid Total Protein Vancomycin Trough Rheumatoid Factor Complement C4 Miscellaneous Test Crossmatch 12/28/16 12/28/16 12/28/16 12:27 16:32 23:46 WBC RBC Hgb Hct MCV MCH MCHC RDW Plt Count Lymph % (Auto) [place] % (Auto) Lymph # [place] # Baso # Seg Neutrophils % Seg Neuts % (Manual) Lymphocytes % (Manual) Monocytes % (Manual) Eosinophils % (Manual) Basophils % (Manual) Nucleated RBC % Seg Neutrophils # Seg Neutrophils # Man Lymphocytes # (Manual) Monocytes # (Manual) Eosinophils # (Manual) Basophils # (Manual) PT INR Fibrinogen dRVVT Confirm Interp Factor V Activity POC ABG pH POC ABG pCO2 POC ABG pO2 ABG pO2 ABG HCO3 ABG Base Excess ABG Hemoglobin Oxyhemoglobin Sodium Potassium Chloride Carbon Dioxide BUN Creatinine Glucose POC Glucose 127 H 117 H 108 H Lactic Acid Calcium Ionized Calcium Phosphorus Magnesium Direct Bilirubin AST ALT Alkaline Phosphatase Lactate Dehydrogenase Troponin T C-Reactive Protein Total Protein Albumin Prealbumin Triglycerides Cholesterol LDL Cholesterol Direct HDL Cholesterol 25-OH Vitamin D Total PTH Intact Urine pH Urine WBC (Auto) Urine Creatinine Urine Total Protein Fluid Total Protein Vancomycin Trough Rheumatoid Factor Complement C4 Miscellaneous Test Crossmatch 12/29/16 12/29/16 12/29/16 05:15 05:15 05:32 WBC RBC Hgb Hct MCV MCH MCHC RDW Plt Count Lymph % (Auto) [place] % (Auto) Lymph # [place] # Baso # Seg Neutrophils % Seg Neuts % (Manual) Lymphocytes % (Manual) Monocytes % (Manual) Eosinophils % (Manual) Basophils % (Manual) Nucleated RBC % Seg Neutrophils # Seg Neutrophils # Man Lymphocytes # (Manual) Monocytes # (Manual) Eosinophils # (Manual) Basophils # (Manual) PT INR Fibrinogen dRVVT Confirm Interp Factor V Activity POC ABG pH POC ABG pCO2 POC ABG pO2 ABG pO2 ABG HCO3 ABG Base Excess ABG Hemoglobin Oxyhemoglobin Sodium Potassium Chloride Carbon Dioxide BUN 74 H Creatinine 1.6 H Glucose 111 H POC Glucose 123 H Lactic Acid Calcium Ionized Calcium Phosphorus Magnesium Direct Bilirubin AST ALT Alkaline Phosphatase Lactate Dehydrogenase Troponin T C-Reactive Protein Total Protein Albumin Prealbumin 0.110 L Triglycerides Cholesterol LDL Cholesterol Direct HDL Cholesterol 25-OH Vitamin D Total PTH Intact Urine pH Urine WBC (Auto) Urine Creatinine Urine Total Protein Fluid Total Protein Vancomycin Trough Rheumatoid Factor Complement C4 Miscellaneous Test Crossmatch 12/29/16 12/29/16 12/29/16 11:43 13:45 14:00 WBC 13.8 H RBC 2.26 L Hgb 6.3 L Hct 20.4 L MCV MCH MCHC RDW 18.3 H Plt Count Lymph % (Auto) [place] % (Auto) Lymph # [place] # 0.9 H Baso # Seg Neutrophils % 78.6 H Seg Neuts % (Manual) Lymphocytes % (Manual) Monocytes % (Manual) Eosinophils % (Manual) Basophils % (Manual) Nucleated RBC % Seg Neutrophils # 10.8 H Seg Neutrophils # Man Lymphocytes # (Manual) Monocytes # (Manual) Eosinophils # (Manual) Basophils # (Manual) PT INR Fibrinogen dRVVT Confirm Interp Factor V Activity POC ABG pH POC ABG pCO2 POC ABG pO2 ABG pO2 ABG HCO3 ABG Base Excess ABG Hemoglobin Oxyhemoglobin Sodium Potassium Chloride Carbon Dioxide BUN Creatinine Glucose POC Glucose 133 H Lactic Acid Calcium Ionized Calcium Phosphorus Magnesium Direct Bilirubin AST ALT Alkaline Phosphatase Lactate Dehydrogenase Troponin T C-Reactive Protein Total Protein Albumin Prealbumin Triglycerides Cholesterol LDL Cholesterol Direct HDL Cholesterol 25-OH Vitamin D Total PTH Intact Urine pH Urine WBC (Auto) Urine Creatinine Urine Total Protein Fluid Total Protein Vancomycin Trough Rheumatoid Factor Complement C4 Miscellaneous Test Crossmatch See Detail 12/29/16 12/29/16 12/29/16 17:03 23:15 23:22 WBC RBC Hgb 7.3 L Hct 22.3 L MCV MCH MCHC RDW Plt Count Lymph % (Auto) [place] % (Auto) Lymph # [place] # Baso # Seg Neutrophils % Seg Neuts % (Manual) Lymphocytes % (Manual) Monocytes % (Manual) Eosinophils % (Manual) Basophils % (Manual) Nucleated RBC % Seg Neutrophils # Seg Neutrophils # Man Lymphocytes # (Manual) Monocytes # (Manual) Eosinophils # (Manual) Basophils # (Manual) PT INR Fibrinogen dRVVT Confirm Interp Factor V Activity POC ABG pH POC ABG pCO2 POC ABG pO2 ABG pO2 ABG HCO3 ABG Base Excess ABG Hemoglobin Oxyhemoglobin Sodium Potassium Chloride Carbon Dioxide BUN Creatinine Glucose POC Glucose 139 H 120 H Lactic Acid Calcium Ionized Calcium Phosphorus Magnesium Direct Bilirubin AST ALT Alkaline Phosphatase Lactate Dehydrogenase Troponin T C-Reactive Protein Total Protein Albumin Prealbumin Triglycerides Cholesterol LDL Cholesterol Direct HDL Cholesterol 25-OH Vitamin D Total PTH Intact Urine pH Urine WBC (Auto) Urine Creatinine Urine Total Protein Fluid Total Protein Vancomycin Trough Rheumatoid Factor Complement C4 Miscellaneous Test Crossmatch 12/30/16 12/30/16 12/30/16 04:20 04:20 05:43 WBC 15.6 H RBC 2.81 L Hgb 8.0 L Hct 24.0 L MCV MCH MCHC RDW 16.9 H Plt Count Lymph % (Auto) [place] % (Auto) Lymph # [place] # 1.0 H Baso # Seg Neutrophils % 76.2 H Seg Neuts % (Manual) Lymphocytes % (Manual) Monocytes % (Manual) Eosinophils % (Manual) Basophils % (Manual) Nucleated RBC % Seg Neutrophils # 11.9 H Seg Neutrophils # Man Lymphocytes # (Manual) Monocytes # (Manual) Eosinophils # (Manual) Basophils # (Manual) PT INR Fibrinogen dRVVT Confirm Interp Factor V Activity POC ABG pH POC ABG pCO2 POC ABG pO2 ABG pO2 ABG HCO3 ABG Base Excess ABG Hemoglobin Oxyhemoglobin Sodium Potassium Chloride Carbon Dioxide BUN 87 H Creatinine 1.8 H Glucose 119 H POC Glucose 115 H Lactic Acid Calcium Ionized Calcium Phosphorus Magnesium Direct Bilirubin AST ALT Alkaline Phosphatase Lactate Dehydrogenase Troponin T C-Reactive Protein Total Protein Albumin Prealbumin Triglycerides Cholesterol LDL Cholesterol Direct HDL Cholesterol 25-OH Vitamin D Total PTH Intact Urine pH Urine WBC (Auto) Urine Creatinine Urine Total Protein Fluid Total Protein Vancomycin Trough Rheumatoid Factor Complement C4 Miscellaneous Test Crossmatch 12/30/16 12/30/16 12/31/16 17:27 23:21 04:00 WBC RBC Hgb Hct MCV MCH MCHC RDW Plt Count Lymph % (Auto) [place] % (Auto) Lymph # [place] # Baso # Seg Neutrophils % Seg Neuts % (Manual) Lymphocytes % (Manual) Monocytes % (Manual) Eosinophils % (Manual) Basophils % (Manual) Nucleated RBC % Seg Neutrophils # Seg Neutrophils # Man Lymphocytes # (Manual) Monocytes # (Manual) Eosinophils # (Manual) Basophils # (Manual) PT INR Fibrinogen dRVVT Confirm Interp Factor V Activity POC ABG pH POC ABG pCO2 POC ABG pO2 ABG pO2 ABG HCO3 ABG Base Excess ABG Hemoglobin Oxyhemoglobin Sodium Potassium Chloride Carbon Dioxide BUN 59 H Creatinine Glucose 298 H POC Glucose 144 H 125 H Lactic Acid Calcium Ionized Calcium Phosphorus Magnesium Direct Bilirubin AST ALT Alkaline Phosphatase Lactate Dehydrogenase Troponin T C-Reactive Protein Total Protein Albumin Prealbumin Triglycerides Cholesterol LDL Cholesterol Direct HDL Cholesterol 25-OH Vitamin D Total PTH Intact Urine pH Urine WBC (Auto) Urine Creatinine Urine Total Protein Fluid Total Protein Vancomycin Trough Rheumatoid Factor Complement C4 Miscellaneous Test Crossmatch 12/31/16 12/31/16 12/31/16 05:11 12:18 18:17 WBC RBC Hgb Hct MCV MCH MCHC RDW Plt Count Lymph % (Auto) [place] % (Auto) Lymph # [place] # Baso # Seg Neutrophils % Seg Neuts % (Manual) Lymphocytes % (Manual) Monocytes % (Manual) Eosinophils % (Manual) Basophils % (Manual) Nucleated RBC % Seg Neutrophils # Seg Neutrophils # Man Lymphocytes # (Manual) Monocytes # (Manual) Eosinophils # (Manual) Basophils # (Manual) PT INR Fibrinogen dRVVT Confirm Interp Factor V Activity POC ABG pH POC ABG pCO2 POC ABG pO2 ABG pO2 ABG HCO3 ABG Base Excess ABG Hemoglobin Oxyhemoglobin Sodium Potassium Chloride Carbon Dioxide BUN Creatinine Glucose POC Glucose 167 H 125 H 133 H Lactic Acid Calcium Ionized Calcium Phosphorus Magnesium Direct Bilirubin AST ALT Alkaline Phosphatase Lactate Dehydrogenase Troponin T C-Reactive Protein Total Protein Albumin Prealbumin Triglycerides Cholesterol LDL Cholesterol Direct HDL Cholesterol 25-OH Vitamin D Total PTH Intact Urine pH Urine WBC (Auto) Urine Creatinine Urine Total Protein Fluid Total Protein Vancomycin Trough Rheumatoid Factor Complement C4 Miscellaneous Test Crossmatch 12/31/16 01/01/17 01/01/17 23:55 05:00 05:12 WBC RBC Hgb Hct MCV MCH MCHC RDW Plt Count Lymph % (Auto) [place] % (Auto) Lymph # [place] # Baso # Seg Neutrophils % Seg Neuts % (Manual) Lymphocytes % (Manual) Monocytes % (Manual) Eosinophils % (Manual) Basophils % (Manual) Nucleated RBC % Seg Neutrophils # Seg Neutrophils # Man Lymphocytes # (Manual) Monocytes # (Manual) Eosinophils # (Manual) Basophils # (Manual) PT INR Fibrinogen dRVVT Confirm Interp Factor V Activity POC ABG pH POC ABG pCO2 POC ABG pO2 ABG pO2 ABG HCO3 ABG Base Excess ABG Hemoglobin Oxyhemoglobin Sodium Potassium Chloride Carbon Dioxide BUN 76 H Creatinine 1.5 H Glucose 109 H POC Glucose 129 H 129 H Lactic Acid Calcium Ionized Calcium Phosphorus Magnesium Direct Bilirubin AST ALT Alkaline Phosphatase 536 H Lactate Dehydrogenase Troponin T C-Reactive Protein Total Protein Albumin 1.5 L Prealbumin Triglycerides Cholesterol LDL Cholesterol Direct HDL Cholesterol 25-OH Vitamin D Total PTH Intact Urine pH Urine WBC (Auto) Urine Creatinine Urine Total Protein Fluid Total Protein Vancomycin Trough Rheumatoid Factor Complement C4 Miscellaneous Test Crossmatch 01/01/17 01/01/17 01/01/17 12:25 17:01 23:32 WBC RBC Hgb Hct MCV MCH MCHC RDW Plt Count Lymph % (Auto) [place] % (Auto) Lymph # [place] # Baso # Seg Neutrophils % Seg Neuts % (Manual) Lymphocytes % (Manual) Monocytes % (Manual) Eosinophils % (Manual) Basophils % (Manual) Nucleated RBC % Seg Neutrophils # Seg Neutrophils # Man Lymphocytes # (Manual) Monocytes # (Manual) Eosinophils # (Manual) Basophils # (Manual) PT INR Fibrinogen dRVVT Confirm Interp Factor V Activity POC ABG pH POC ABG pCO2 POC ABG pO2 ABG pO2 ABG HCO3 ABG Base Excess ABG Hemoglobin Oxyhemoglobin Sodium Potassium Chloride Carbon Dioxide BUN Creatinine Glucose POC Glucose 140 H 142 H 112 H Lactic Acid Calcium Ionized Calcium Phosphorus Magnesium Direct Bilirubin AST ALT Alkaline Phosphatase Lactate Dehydrogenase Troponin T C-Reactive Protein Total Protein Albumin Prealbumin Triglycerides Cholesterol LDL Cholesterol Direct HDL Cholesterol 25-OH Vitamin D Total PTH Intact Urine pH Urine WBC (Auto) Urine Creatinine Urine Total Protein Fluid Total Protein Vancomycin Trough Rheumatoid Factor Complement C4 Miscellaneous Test Crossmatch 01/02/17 01/02/17 01/02/17 04:56 06:00 11:37 WBC RBC Hgb Hct MCV MCH MCHC RDW Plt Count Lymph % (Auto) [place] % (Auto) Lymph # [place] # Baso # Seg Neutrophils % Seg Neuts % (Manual) Lymphocytes % (Manual) Monocytes % (Manual) Eosinophils % (Manual) Basophils % (Manual) Nucleated RBC % Seg Neutrophils # Seg Neutrophils # Man Lymphocytes # (Manual) Monocytes # (Manual) Eosinophils # (Manual) Basophils # (Manual) PT INR Fibrinogen dRVVT Confirm Interp Factor V Activity POC ABG pH POC ABG pCO2 POC ABG pO2 ABG pO2 ABG HCO3 ABG Base Excess ABG Hemoglobin Oxyhemoglobin Sodium Potassium Chloride Carbon Dioxide BUN 88 H Creatinine 1.7 H Glucose 113 H POC Glucose 136 H 200 H Lactic Acid Calcium Ionized Calcium Phosphorus Magnesium Direct Bilirubin AST ALT Alkaline Phosphatase Lactate Dehydrogenase Troponin T C-Reactive Protein Total Protein Albumin Prealbumin Triglycerides Cholesterol LDL Cholesterol Direct HDL Cholesterol 25-OH Vitamin D Total PTH Intact Urine pH Urine WBC (Auto) Urine Creatinine Urine Total Protein Fluid Total Protein Vancomycin Trough Rheumatoid Factor Complement C4 Miscellaneous Test Crossmatch 01/02/17 01/02/17 01/03/17 17:42 22:52 04:54 WBC RBC Hgb Hct MCV MCH MCHC RDW Plt Count Lymph % (Auto) [place] % (Auto) Lymph # [place] # Baso # Seg Neutrophils % Seg Neuts % (Manual) Lymphocytes % (Manual) Monocytes % (Manual) Eosinophils % (Manual) Basophils % (Manual) Nucleated RBC % Seg Neutrophils # Seg Neutrophils # Man Lymphocytes # (Manual) Monocytes # (Manual) Eosinophils # (Manual) Basophils # (Manual) PT INR Fibrinogen dRVVT Confirm Interp Factor V Activity POC ABG pH POC ABG pCO2 POC ABG pO2 ABG pO2 ABG HCO3 ABG Base Excess ABG Hemoglobin Oxyhemoglobin Sodium Potassium Chloride Carbon Dioxide BUN Creatinine Glucose POC Glucose 112 H 133 H 111 H Lactic Acid Calcium Ionized Calcium Phosphorus Magnesium Direct Bilirubin AST ALT Alkaline Phosphatase Lactate Dehydrogenase Troponin T C-Reactive Protein Total Protein Albumin Prealbumin Triglycerides Cholesterol LDL Cholesterol Direct HDL Cholesterol 25-OH Vitamin D Total PTH Intact Urine pH Urine WBC (Auto) Urine Creatinine Urine Total Protein Fluid Total Protein Vancomycin Trough Rheumatoid Factor Complement C4 Miscellaneous Test Crossmatch 01/03/17 01/03/17 01/03/17 05:00 05:00 14:02 WBC 11.2 H RBC 2.56 L Hgb 7.2 L Hct 22.3 L MCV MCH MCHC RDW 17.3 H Plt Count Lymph % (Auto) [place] % (Auto) 10.0 H Lymph # [place] # 1.1 H Baso # Seg Neutrophils % 70.5 H Seg Neuts % (Manual) Lymphocytes % (Manual) Monocytes % (Manual) Eosinophils % (Manual) Basophils % (Manual) Nucleated RBC % Seg Neutrophils # 7.9 H Seg Neutrophils # Man Lymphocytes # (Manual) Monocytes # (Manual) Eosinophils # (Manual) Basophils # (Manual) PT INR Fibrinogen dRVVT Confirm Interp Factor V Activity POC ABG pH POC ABG pCO2 POC ABG pO2 ABG pO2 ABG HCO3 ABG Base Excess ABG Hemoglobin Oxyhemoglobin Sodium Potassium Chloride Carbon Dioxide BUN 60 H Creatinine 1.3 H Glucose 110 H POC Glucose 119 H Lactic Acid Calcium Ionized Calcium Phosphorus Magnesium Direct Bilirubin AST ALT Alkaline Phosphatase Lactate Dehydrogenase Troponin T C-Reactive Protein Total Protein Albumin Prealbumin Triglycerides Cholesterol LDL Cholesterol Direct HDL Cholesterol 25-OH Vitamin D Total PTH Intact Urine pH Urine WBC (Auto) Urine Creatinine Urine Total Protein Fluid Total Protein Vancomycin Trough Rheumatoid Factor Complement C4 Miscellaneous Test Crossmatch 01/03/17 01/03/17 01/04/17 18:13 23:40 05:57 WBC RBC Hgb Hct MCV MCH MCHC RDW Plt Count Lymph % (Auto) [place] % (Auto) Lymph # [place] # Baso # Seg Neutrophils % Seg Neuts % (Manual) Lymphocytes % (Manual) Monocytes % (Manual) Eosinophils % (Manual) Basophils % (Manual) Nucleated RBC % Seg Neutrophils # Seg Neutrophils # Man Lymphocytes # (Manual) Monocytes # (Manual) Eosinophils # (Manual) Basophils # (Manual) PT INR Fibrinogen dRVVT Confirm Interp Factor V Activity POC ABG pH POC ABG pCO2 POC ABG pO2 ABG pO2 ABG HCO3 ABG Base Excess ABG Hemoglobin Oxyhemoglobin Sodium Potassium Chloride Carbon Dioxide BUN Creatinine Glucose POC Glucose 107 H 129 H 111 H Lactic Acid Calcium Ionized Calcium Phosphorus Magnesium Direct Bilirubin AST ALT Alkaline Phosphatase Lactate Dehydrogenase Troponin T C-Reactive Protein Total Protein Albumin Prealbumin Triglycerides Cholesterol LDL Cholesterol Direct HDL Cholesterol 25-OH Vitamin D Total PTH Intact Urine pH Urine WBC (Auto) Urine Creatinine Urine Total Protein Fluid Total Protein Vancomycin Trough Rheumatoid Factor Complement C4 Miscellaneous Test Crossmatch 01/04/17 01/04/17 01/04/17 12:46 15:27 17:11 WBC RBC Hgb Hct MCV MCH MCHC RDW Plt Count Lymph % (Auto) [place] % (Auto) Lymph # [place] # Baso # Seg Neutrophils % Seg Neuts % (Manual) Lymphocytes % (Manual) Monocytes % (Manual) Eosinophils % (Manual) Basophils % (Manual) Nucleated RBC % Seg Neutrophils # Seg Neutrophils # Man Lymphocytes # (Manual) Monocytes # (Manual) Eosinophils # (Manual) Basophils # (Manual) PT INR Fibrinogen dRVVT Confirm Interp Factor V Activity POC ABG pH POC ABG pCO2 POC ABG pO2 ABG pO2 ABG HCO3 ABG Base Excess ABG Hemoglobin Oxyhemoglobin Sodium Potassium Chloride Carbon Dioxide BUN 43 H Creatinine Glucose 124 H POC Glucose 159 H 125 H Lactic Acid Calcium 8.0 L Ionized Calcium Phosphorus 2.10 L Magnesium Direct Bilirubin AST ALT Alkaline Phosphatase Lactate Dehydrogenase Troponin T C-Reactive Protein Total Protein Albumin Prealbumin Triglycerides Cholesterol LDL Cholesterol Direct HDL Cholesterol 25-OH Vitamin D Total PTH Intact Urine pH Urine WBC (Auto) Urine Creatinine Urine Total Protein Fluid Total Protein Vancomycin Trough Rheumatoid Factor Complement C4 Miscellaneous Test Crossmatch 01/04/17 01/05/17 01/05/17 23:31 04:00 05:46 WBC RBC Hgb Hct MCV MCH MCHC RDW Plt Count Lymph % (Auto) [place] % (Auto) Lymph # [place] # Baso # Seg Neutrophils % Seg Neuts % (Manual) Lymphocytes % (Manual) Monocytes % (Manual) Eosinophils % (Manual) Basophils % (Manual) Nucleated RBC % Seg Neutrophils # Seg Neutrophils # Man Lymphocytes # (Manual) Monocytes # (Manual) Eosinophils # (Manual) Basophils # (Manual) PT INR Fibrinogen dRVVT Confirm Interp Factor V Activity POC ABG pH POC ABG pCO2 POC ABG pO2 ABG pO2 ABG HCO3 ABG Base Excess ABG Hemoglobin Oxyhemoglobin Sodium Potassium Chloride Carbon Dioxide BUN 52 H Creatinine 1.3 H Glucose 113 H POC Glucose 123 H 118 H Lactic Acid Calcium Ionized Calcium Phosphorus 2.40 L Magnesium Direct Bilirubin AST ALT Alkaline Phosphatase Lactate Dehydrogenase Troponin T C-Reactive Protein Total Protein Albumin Prealbumin Triglycerides Cholesterol LDL Cholesterol Direct HDL Cholesterol 25-OH Vitamin D Total PTH Intact Urine pH Urine WBC (Auto) Urine Creatinine Urine Total Protein Fluid Total Protein Vancomycin Trough Rheumatoid Factor Complement C4 Miscellaneous Test Crossmatch 01/05/17 01/05/17 01/05/17 11:41 17:48 23:27 WBC RBC Hgb Hct MCV MCH MCHC RDW Plt Count Lymph % (Auto) [place] % (Auto) Lymph # [place] # Baso # Seg Neutrophils % Seg Neuts % (Manual) Lymphocytes % (Manual) Monocytes % (Manual) Eosinophils % (Manual) Basophils % (Manual) Nucleated RBC % Seg Neutrophils # Seg Neutrophils # Man Lymphocytes # (Manual) Monocytes # (Manual) Eosinophils # (Manual) Basophils # (Manual) PT INR Fibrinogen dRVVT Confirm Interp Factor V Activity POC ABG pH POC ABG pCO2 POC ABG pO2 ABG pO2 ABG HCO3 ABG Base Excess ABG Hemoglobin Oxyhemoglobin Sodium Potassium Chloride Carbon Dioxide BUN Creatinine Glucose POC Glucose 163 H 142 H 155 H Lactic Acid Calcium Ionized Calcium Phosphorus Magnesium Direct Bilirubin AST ALT Alkaline Phosphatase Lactate Dehydrogenase Troponin T C-Reactive Protein Total Protein Albumin Prealbumin Triglycerides Cholesterol LDL Cholesterol Direct HDL Cholesterol 25-OH Vitamin D Total PTH Intact Urine pH Urine WBC (Auto) Urine Creatinine Urine Total Protein Fluid Total Protein Vancomycin Trough Rheumatoid Factor Complement C4 Miscellaneous Test Crossmatch 01/06/17 01/06/17 01/06/17 05:20 07:35 11:18 WBC RBC Hgb Hct MCV MCH MCHC RDW Plt Count Lymph % (Auto) [place] % (Auto) Lymph # [place] # Baso # Seg Neutrophils % Seg Neuts % (Manual) Lymphocytes % (Manual) Monocytes % (Manual) Eosinophils % (Manual) Basophils % (Manual) Nucleated RBC % Seg Neutrophils # Seg Neutrophils # Man Lymphocytes # (Manual) Monocytes # (Manual) Eosinophils # (Manual) Basophils # (Manual) PT INR Fibrinogen dRVVT Confirm Interp Factor V Activity POC ABG pH POC ABG pCO2 POC ABG pO2 ABG pO2 ABG HCO3 ABG Base Excess ABG Hemoglobin Oxyhemoglobin Sodium Potassium Chloride Carbon Dioxide BUN 74 H Creatinine 1.6 H Glucose 135 H POC Glucose 108 H 149 H Lactic Acid Calcium Ionized Calcium Phosphorus Magnesium Direct Bilirubin AST ALT Alkaline Phosphatase Lactate Dehydrogenase Troponin T C-Reactive Protein Total Protein Albumin Prealbumin Triglycerides Cholesterol LDL Cholesterol Direct HDL Cholesterol 25-OH Vitamin D Total PTH Intact Urine pH Urine WBC (Auto) Urine Creatinine Urine Total Protein Fluid Total Protein Vancomycin Trough Rheumatoid Factor Complement C4 Miscellaneous Test Crossmatch 01/06/17 01/07/17 01/07/17 17:17 00:23 05:31 WBC RBC Hgb Hct MCV MCH MCHC RDW Plt Count Lymph % (Auto) [place] % (Auto) Lymph # [place] # Baso # Seg Neutrophils % Seg Neuts % (Manual) Lymphocytes % (Manual) Monocytes % (Manual) Eosinophils % (Manual) Basophils % (Manual) Nucleated RBC % Seg Neutrophils # Seg Neutrophils # Man Lymphocytes # (Manual) Monocytes # (Manual) Eosinophils # (Manual) Basophils # (Manual) PT INR Fibrinogen dRVVT Confirm Interp Factor V Activity POC ABG pH POC ABG pCO2 POC ABG pO2 ABG pO2 ABG HCO3 ABG Base Excess ABG Hemoglobin Oxyhemoglobin Sodium Potassium Chloride Carbon Dioxide BUN Creatinine Glucose POC Glucose 146 H 165 H 153 H Lactic Acid Calcium Ionized Calcium Phosphorus Magnesium Direct Bilirubin AST ALT Alkaline Phosphatase Lactate Dehydrogenase Troponin T C-Reactive Protein Total Protein Albumin Prealbumin Triglycerides Cholesterol LDL Cholesterol Direct HDL Cholesterol 25-OH Vitamin D Total PTH Intact Urine pH Urine WBC (Auto) Urine Creatinine Urine Total Protein Fluid Total Protein Vancomycin Trough Rheumatoid Factor Complement C4 Miscellaneous Test Crossmatch 01/07/17 01/07/17 01/07/17 06:00 11:39 17:11 WBC RBC Hgb Hct MCV MCH MCHC RDW Plt Count Lymph % (Auto) [place] % (Auto) Lymph # [place] # Baso # Seg Neutrophils % Seg Neuts % (Manual) Lymphocytes % (Manual) Monocytes % (Manual) Eosinophils % (Manual) Basophils % (Manual) Nucleated RBC % Seg Neutrophils # Seg Neutrophils # Man Lymphocytes # (Manual) Monocytes # (Manual) Eosinophils # (Manual) Basophils # (Manual) PT INR Fibrinogen dRVVT Confirm Interp Factor V Activity POC ABG pH POC ABG pCO2 POC ABG pO2 ABG pO2 ABG HCO3 ABG Base Excess ABG Hemoglobin Oxyhemoglobin Sodium Potassium Chloride Carbon Dioxide BUN 42 H Creatinine Glucose 175 H POC Glucose 163 H 163 H Lactic Acid Calcium Ionized Calcium Phosphorus 2.40 L D Magnesium Direct Bilirubin AST ALT Alkaline Phosphatase Lactate Dehydrogenase Troponin T C-Reactive Protein Total Protein Albumin Prealbumin Triglycerides Cholesterol LDL Cholesterol Direct HDL Cholesterol 25-OH Vitamin D Total PTH Intact Urine pH Urine WBC (Auto) Urine Creatinine Urine Total Protein Fluid Total Protein Vancomycin Trough Rheumatoid Factor Complement C4 Miscellaneous Test Crossmatch 01/07/17 01/08/17 01/08/17 23:40 05:00 05:00 WBC 27.4 H RBC 2.27 L Hgb 6.1 L Hct 20.4 L MCV MCH 27 L MCHC RDW 17.8 H Plt Count Lymph % (Auto) [place] % (Auto) Lymph # [place] # Baso # Seg Neutrophils % Seg Neuts % (Manual) Lymphocytes % (Manual) Monocytes % (Manual) Eosinophils % (Manual) Basophils % (Manual) Nucleated RBC % Seg Neutrophils # Seg Neutrophils # Man Lymphocytes # (Manual) Monocytes # (Manual) Eosinophils # (Manual) Basophils # (Manual) PT INR Fibrinogen dRVVT Confirm Interp Factor V Activity POC ABG pH POC ABG pCO2 POC ABG pO2 ABG pO2 ABG HCO3 ABG Base Excess ABG Hemoglobin Oxyhemoglobin Sodium Potassium Chloride Carbon Dioxide 16 L D BUN 62 H Creatinine 1.6 H D Glucose 103 H POC Glucose 135 H Lactic Acid Calcium Ionized Calcium Phosphorus Magnesium Direct Bilirubin AST ALT Alkaline Phosphatase Lactate Dehydrogenase Troponin T C-Reactive Protein Total Protein Albumin Prealbumin Triglycerides Cholesterol LDL Cholesterol Direct HDL Cholesterol 25-OH Vitamin D Total PTH Intact Urine pH Urine WBC (Auto) Urine Creatinine Urine Total Protein Fluid Total Protein Vancomycin Trough Rheumatoid Factor Complement C4 Miscellaneous Test Crossmatch 01/08/17 01/08/17 01/08/17 05:25 10:37 10:37 WBC RBC Hgb Hct MCV MCH MCHC RDW Plt Count Lymph % (Auto) [place] % (Auto) Lymph # [place] # Baso # Seg Neutrophils % Seg Neuts % (Manual) Lymphocytes % (Manual) Monocytes % (Manual) Eosinophils % (Manual) Basophils % (Manual) Nucleated RBC % Seg Neutrophils # Seg Neutrophils # Man Lymphocytes # (Manual) Monocytes # (Manual) Eosinophils # (Manual) Basophils # (Manual) PT INR Fibrinogen dRVVT Confirm Interp Factor V Activity POC ABG pH POC ABG pCO2 POC ABG pO2 ABG pO2 ABG HCO3 ABG Base Excess ABG Hemoglobin Oxyhemoglobin Sodium Potassium Chloride Carbon Dioxide BUN Creatinine Glucose POC Glucose 106 H Lactic Acid Calcium Ionized Calcium Phosphorus Magnesium Direct Bilirubin AST ALT Alkaline Phosphatase Lactate Dehydrogenase Troponin T C-Reactive Protein 24.40 H Total Protein Albumin Prealbumin Triglycerides Cholesterol LDL Cholesterol Direct HDL Cholesterol 25-OH Vitamin D Total PTH Intact Urine pH Urine WBC (Auto) Urine Creatinine Urine Total Protein Fluid Total Protein Vancomycin Trough Rheumatoid Factor Complement C4 Miscellaneous Test Crossmatch See Detail 01/08/17 01/08/17 01/08/17 10:37 11:33 15:15 WBC RBC Hgb Hct MCV MCH MCHC RDW Plt Count Lymph % (Auto) [place] % (Auto) Lymph # [place] # Baso # Seg Neutrophils % Seg Neuts % (Manual) Lymphocytes % (Manual) Monocytes % (Manual) Eosinophils % (Manual) Basophils % (Manual) Nucleated RBC % Seg Neutrophils # Seg Neutrophils # Man Lymphocytes # (Manual) Monocytes # (Manual) Eosinophils # (Manual) Basophils # (Manual) PT INR Fibrinogen dRVVT Confirm Interp Factor V Activity POC ABG pH POC ABG pCO2 POC ABG pO2 ABG pO2 ABG HCO3 ABG Base Excess ABG Hemoglobin Oxyhemoglobin Sodium Potassium Chloride Carbon Dioxide BUN Creatinine Glucose POC Glucose 157 H Lactic Acid 9.70 H* 9.10 H* Calcium Ionized Calcium Phosphorus Magnesium Direct Bilirubin AST ALT Alkaline Phosphatase Lactate Dehydrogenase Troponin T C-Reactive Protein Total Protein Albumin Prealbumin Triglycerides Cholesterol LDL Cholesterol Direct HDL Cholesterol 25-OH Vitamin D Total PTH Intact Urine pH Urine WBC (Auto) Urine Creatinine Urine Total Protein Fluid Total Protein Vancomycin Trough Rheumatoid Factor Complement C4 Miscellaneous Test Crossmatch 01/08/17 01/08/17 01/09/17 17:19 23:12 04:40 WBC RBC Hgb Hct MCV MCH MCHC RDW Plt Count Lymph % (Auto) [place] % (Auto) Lymph # [place] # Baso # Seg Neutrophils % Seg Neuts % (Manual) Lymphocytes % (Manual) Monocytes % (Manual) Eosinophils % (Manual) Basophils % (Manual) Nucleated RBC % Seg Neutrophils # Seg Neutrophils # Man Lymphocytes # (Manual) Monocytes # (Manual) Eosinophils # (Manual) Basophils # (Manual) PT INR Fibrinogen dRVVT Confirm Interp Factor V Activity POC ABG pH POC ABG pCO2 POC ABG pO2 ABG pO2 ABG HCO3 ABG Base Excess ABG Hemoglobin Oxyhemoglobin Sodium 147 H Potassium Chloride Carbon Dioxide BUN 82 H Creatinine 1.8 H Glucose 137 H POC Glucose 164 H 157 H Lactic Acid Calcium Ionized Calcium Phosphorus Magnesium Direct Bilirubin AST ALT Alkaline Phosphatase Lactate Dehydrogenase Troponin T C-Reactive Protein Total Protein Albumin Prealbumin Triglycerides Cholesterol LDL Cholesterol Direct HDL Cholesterol 25-OH Vitamin D Total PTH Intact Urine pH Urine WBC (Auto) Urine Creatinine Urine Total Protein Fluid Total Protein Vancomycin Trough Rheumatoid Factor Complement C4 Miscellaneous Test Crossmatch 01/09/17 01/09/17 01/09/17 05:42 08:22 10:57 WBC RBC Hgb Hct MCV MCH MCHC RDW Plt Count Lymph % (Auto) [place] % (Auto) Lymph # [place] # Baso # Seg Neutrophils % Seg Neuts % (Manual) Lymphocytes % (Manual) Monocytes % (Manual) Eosinophils % (Manual) Basophils % (Manual) Nucleated RBC % Seg Neutrophils # Seg Neutrophils # Man Lymphocytes # (Manual) Monocytes # (Manual) Eosinophils # (Manual) Basophils # (Manual) PT INR Fibrinogen dRVVT Confirm Interp Factor V Activity POC ABG pH POC ABG pCO2 POC ABG pO2 ABG pO2 ABG HCO3 ABG Base Excess ABG Hemoglobin Oxyhemoglobin Sodium Potassium Chloride Carbon Dioxide BUN Creatinine Glucose POC Glucose 156 H 122 H Lactic Acid 2.30 H* Calcium Ionized Calcium Phosphorus Magnesium Direct Bilirubin AST ALT Alkaline Phosphatase Lactate Dehydrogenase Troponin T C-Reactive Protein Total Protein Albumin Prealbumin Triglycerides Cholesterol LDL Cholesterol Direct HDL Cholesterol 25-OH Vitamin D Total PTH Intact Urine pH Urine WBC (Auto) Urine Creatinine Urine Total Protein Fluid Total Protein Vancomycin Trough Rheumatoid Factor Complement C4 Miscellaneous Test Crossmatch 01/09/17 01/09/17 01/09/17 13:30 17:14 18:45 WBC RBC Hgb Hct MCV MCH MCHC RDW Plt Count Lymph % (Auto) [place] % (Auto) Lymph # [place] # Baso # Seg Neutrophils % Seg Neuts % (Manual) Lymphocytes % (Manual) Monocytes % (Manual) Eosinophils % (Manual) Basophils % (Manual) Nucleated RBC % Seg Neutrophils # Seg Neutrophils # Man Lymphocytes # (Manual) Monocytes # (Manual) Eosinophils # (Manual) Basophils # (Manual) PT INR Fibrinogen dRVVT Confirm Interp Factor V Activity POC ABG pH POC ABG pCO2 POC ABG pO2 ABG pO2 ABG HCO3 ABG Base Excess ABG Hemoglobin Oxyhemoglobin Sodium Potassium Chloride Carbon Dioxide BUN Creatinine Glucose POC Glucose 127 H Lactic Acid Calcium Ionized Calcium Phosphorus Magnesium Direct Bilirubin AST ALT Alkaline Phosphatase Lactate Dehydrogenase Troponin T C-Reactive Protein 24.70 H Total Protein Albumin Prealbumin Triglycerides Cholesterol LDL Cholesterol Direct HDL Cholesterol 25-OH Vitamin D Total PTH Intact Urine pH Urine WBC (Auto) Urine Creatinine Urine Total Protein Fluid Total Protein Vancomycin Trough Rheumatoid Factor Complement C4 Miscellaneous Test Flexitest 1 H Crossmatch 01/10/17 01/10/17 01/10/17 01:21 04:00 04:00 WBC 18.1 H RBC 3.22 L Hgb 8.8 L Hct 27.0 L D MCV MCH 27 L MCHC RDW 17.0 H Plt Count Lymph % (Auto) [place] % (Auto) Lymph # [place] # Baso # Seg Neutrophils % Seg Neuts % (Manual) Lymphocytes % (Manual) Monocytes % (Manual) Eosinophils % (Manual) Basophils % (Manual) Nucleated RBC % Seg Neutrophils # Seg Neutrophils # Man Lymphocytes # (Manual) Monocytes # (Manual) Eosinophils # (Manual) Basophils # (Manual) PT INR Fibrinogen dRVVT Confirm Interp Factor V Activity POC ABG pH POC ABG pCO2 POC ABG pO2 ABG pO2 ABG HCO3 ABG Base Excess ABG Hemoglobin Oxyhemoglobin Sodium Potassium Chloride Carbon Dioxide BUN 59 H Creatinine 1.3 H Glucose 122 H POC Glucose 160 H Lactic Acid Calcium Ionized Calcium Phosphorus Magnesium Direct Bilirubin AST ALT Alkaline Phosphatase Lactate Dehydrogenase Troponin T C-Reactive Protein Total Protein Albumin Prealbumin Triglycerides Cholesterol LDL Cholesterol Direct HDL Cholesterol 25-OH Vitamin D Total PTH Intact Urine pH Urine WBC (Auto) Urine Creatinine Urine Total Protein Fluid Total Protein Vancomycin Trough Rheumatoid Factor Complement C4 Miscellaneous Test Crossmatch 01/10/17 01/10/17 01/10/17 05:36 12:14 17:55 WBC RBC Hgb Hct MCV MCH MCHC RDW Plt Count Lymph % (Auto) [place] % (Auto) Lymph # [place] # Baso # Seg Neutrophils % Seg Neuts % (Manual) Lymphocytes % (Manual) Monocytes % (Manual) Eosinophils % (Manual) Basophils % (Manual) Nucleated RBC % Seg Neutrophils # Seg Neutrophils # Man Lymphocytes # (Manual) Monocytes # (Manual) Eosinophils # (Manual) Basophils # (Manual) PT INR Fibrinogen dRVVT Confirm Interp Factor V Activity POC ABG pH POC ABG pCO2 POC ABG pO2 ABG pO2 ABG HCO3 ABG Base Excess ABG Hemoglobin Oxyhemoglobin Sodium Potassium Chloride Carbon Dioxide BUN Creatinine Glucose POC Glucose 163 H 120 H 144 H Lactic Acid Calcium Ionized Calcium Phosphorus Magnesium Direct Bilirubin AST ALT Alkaline Phosphatase Lactate Dehydrogenase Troponin T C-Reactive Protein Total Protein Albumin Prealbumin Triglycerides Cholesterol LDL Cholesterol Direct HDL Cholesterol 25-OH Vitamin D Total PTH Intact Urine pH Urine WBC (Auto) Urine Creatinine Urine Total Protein Fluid Total Protein Vancomycin Trough Rheumatoid Factor Complement C4 Miscellaneous Test Crossmatch 01/11/17 01/11/17 01/11/17 00:09 04:00 04:00 WBC 15.8 H RBC 3.04 L Hgb 8.2 L Hct 25.5 L MCV MCH 27 L MCHC RDW 17.3 H Plt Count Lymph % (Auto) [place] % (Auto) Lymph # [place] # Baso # Seg Neutrophils % Seg Neuts % (Manual) Lymphocytes % (Manual) Monocytes % (Manual) Eosinophils % (Manual) Basophils % (Manual) Nucleated RBC % Seg Neutrophils # Seg Neutrophils # Man Lymphocytes # (Manual) Monocytes # (Manual) Eosinophils # (Manual) Basophils # (Manual) PT INR Fibrinogen dRVVT Confirm Interp Factor V Activity POC ABG pH POC ABG pCO2 POC ABG pO2 ABG pO2 ABG HCO3 ABG Base Excess ABG Hemoglobin Oxyhemoglobin Sodium Potassium Chloride Carbon Dioxide BUN 78 H Creatinine 1.6 H Glucose 109 H POC Glucose 122 H Lactic Acid Calcium Ionized Calcium Phosphorus Magnesium Direct Bilirubin AST ALT Alkaline Phosphatase Lactate Dehydrogenase Troponin T C-Reactive Protein Total Protein Albumin Prealbumin Triglycerides Cholesterol LDL Cholesterol Direct HDL Cholesterol 25-OH Vitamin D Total PTH Intact Urine pH Urine WBC (Auto) Urine Creatinine Urine Total Protein Fluid Total Protein Vancomycin Trough Rheumatoid Factor Complement C4 Miscellaneous Test Crossmatch 01/11/17 01/11/17 01/11/17 12:46 18:23 23:42 WBC RBC Hgb Hct MCV MCH MCHC RDW Plt Count Lymph % (Auto) [place] % (Auto) Lymph # [place] # Baso # Seg Neutrophils % Seg Neuts % (Manual) Lymphocytes % (Manual) Monocytes % (Manual) Eosinophils % (Manual) Basophils % (Manual) Nucleated RBC % Seg Neutrophils # Seg Neutrophils # Man Lymphocytes # (Manual) Monocytes # (Manual) Eosinophils # (Manual) Basophils # (Manual) PT INR Fibrinogen dRVVT Confirm Interp Factor V Activity POC ABG pH POC ABG pCO2 POC ABG pO2 ABG pO2 ABG HCO3 ABG Base Excess ABG Hemoglobin Oxyhemoglobin Sodium Potassium Chloride Carbon Dioxide BUN Creatinine Glucose POC Glucose 148 H 125 H 124 H Lactic Acid Calcium Ionized Calcium Phosphorus Magnesium Direct Bilirubin AST ALT Alkaline Phosphatase Lactate Dehydrogenase Troponin T C-Reactive Protein Total Protein Albumin Prealbumin Triglycerides Cholesterol LDL Cholesterol Direct HDL Cholesterol 25-OH Vitamin D Total PTH Intact Urine pH Urine WBC (Auto) Urine Creatinine Urine Total Protein Fluid Total Protein Vancomycin Trough Rheumatoid Factor Complement C4 Miscellaneous Test Crossmatch 01/12/17 01/12/17 01/12/17 04:30 04:30 05:47 WBC 15.8 H RBC 3.31 L Hgb 8.9 L Hct 27.9 L MCV MCH 27 L MCHC RDW 17.4 H Plt Count Lymph % (Auto) [place] % (Auto) Lymph # [place] # Baso # Seg Neutrophils % Seg Neuts % (Manual) Lymphocytes % (Manual) Monocytes % (Manual) Eosinophils % (Manual) Basophils % (Manual) Nucleated RBC % Seg Neutrophils # Seg Neutrophils # Man Lymphocytes # (Manual) Monocytes # (Manual) Eosinophils # (Manual) Basophils # (Manual) PT INR Fibrinogen dRVVT Confirm Interp Factor V Activity POC ABG pH POC ABG pCO2 POC ABG pO2 ABG pO2 ABG HCO3 ABG Base Excess ABG Hemoglobin Oxyhemoglobin Sodium Potassium Chloride Carbon Dioxide BUN 57 H Creatinine Glucose 121 H POC Glucose 110 H Lactic Acid Calcium Ionized Calcium Phosphorus 2.10 L Magnesium Direct Bilirubin AST ALT Alkaline Phosphatase Lactate Dehydrogenase Troponin T C-Reactive Protein Total Protein Albumin Prealbumin Triglycerides Cholesterol LDL Cholesterol Direct HDL Cholesterol 25-OH Vitamin D Total PTH Intact Urine pH Urine WBC (Auto) Urine Creatinine Urine Total Protein Fluid Total Protein Vancomycin Trough Rheumatoid Factor Complement C4 Miscellaneous Test Crossmatch 01/12/17 01/12/17 01/12/17 11:35 17:45 23:14 WBC RBC Hgb Hct MCV MCH MCHC RDW Plt Count Lymph % (Auto) [place] % (Auto) Lymph # [place] # Baso # Seg Neutrophils % Seg Neuts % (Manual) Lymphocytes % (Manual) Monocytes % (Manual) Eosinophils % (Manual) Basophils % (Manual) Nucleated RBC % Seg Neutrophils # Seg Neutrophils # Man Lymphocytes # (Manual) Monocytes # (Manual) Eosinophils # (Manual) Basophils # (Manual) PT INR Fibrinogen dRVVT Confirm Interp Factor V Activity POC ABG pH POC ABG pCO2 POC ABG pO2 ABG pO2 ABG HCO3 ABG Base Excess ABG Hemoglobin Oxyhemoglobin Sodium Potassium Chloride Carbon Dioxide BUN Creatinine Glucose POC Glucose 146 H 117 H 123 H Lactic Acid Calcium Ionized Calcium Phosphorus Magnesium Direct Bilirubin AST ALT Alkaline Phosphatase Lactate Dehydrogenase Troponin T C-Reactive Protein Total Protein Albumin Prealbumin Triglycerides Cholesterol LDL Cholesterol Direct HDL Cholesterol 25-OH Vitamin D Total PTH Intact Urine pH Urine WBC (Auto) Urine Creatinine Urine Total Protein Fluid Total Protein Vancomycin Trough Rheumatoid Factor Complement C4 Miscellaneous Test Crossmatch 01/13/17 01/13/17 01/13/17 05:32 06:00 12:10 WBC RBC Hgb Hct MCV MCH MCHC RDW Plt Count Lymph % (Auto) [place] % (Auto) Lymph # [place] # Baso # Seg Neutrophils % Seg Neuts % (Manual) Lymphocytes % (Manual) Monocytes % (Manual) Eosinophils % (Manual) Basophils % (Manual) Nucleated RBC % Seg Neutrophils # Seg Neutrophils # Man Lymphocytes # (Manual) Monocytes # (Manual) Eosinophils # (Manual) Basophils # (Manual) PT INR Fibrinogen dRVVT Confirm Interp Factor V Activity POC ABG pH POC ABG pCO2 POC ABG pO2 ABG pO2 ABG HCO3 ABG Base Excess ABG Hemoglobin Oxyhemoglobin Sodium Potassium Chloride Carbon Dioxide BUN 80 H Creatinine 1.4 H Glucose 106 H POC Glucose 106 H Lactic Acid Calcium Ionized Calcium Phosphorus Magnesium Direct Bilirubin AST ALT Alkaline Phosphatase Lactate Dehydrogenase Troponin T C-Reactive Protein Total Protein Albumin Prealbumin Triglycerides Cholesterol LDL Cholesterol Direct HDL Cholesterol 25-OH Vitamin D Total PTH Intact Urine pH Urine WBC (Auto) Urine Creatinine Urine Total Protein Fluid Total Protein 3.0 L Vancomycin Trough Rheumatoid Factor Complement C4 Miscellaneous Test Crossmatch 01/13/17 01/13/17 01/13/17 12:17 15:50 17:30 WBC RBC Hgb Hct MCV MCH MCHC RDW Plt Count Lymph % (Auto) [place] % (Auto) Lymph # [place] # Baso # Seg Neutrophils % Seg Neuts % (Manual) Lymphocytes % (Manual) Monocytes % (Manual) Eosinophils % (Manual) Basophils % (Manual) Nucleated RBC % Seg Neutrophils # Seg Neutrophils # Man Lymphocytes # (Manual) Monocytes # (Manual) Eosinophils # (Manual) Basophils # (Manual) PT 15.4 H INR 1.16 H Fibrinogen dRVVT Confirm Interp Factor V Activity POC ABG pH POC ABG pCO2 POC ABG pO2 ABG pO2 ABG HCO3 ABG Base Excess ABG Hemoglobin Oxyhemoglobin Sodium Potassium Chloride Carbon Dioxide BUN Creatinine Glucose POC Glucose 168 H 110 H Lactic Acid Calcium Ionized Calcium Phosphorus Magnesium Direct Bilirubin AST ALT Alkaline Phosphatase Lactate Dehydrogenase Troponin T C-Reactive Protein Total Protein Albumin Prealbumin Triglycerides Cholesterol LDL Cholesterol Direct HDL Cholesterol 25-OH Vitamin D Total PTH Intact Urine pH Urine WBC (Auto) Urine Creatinine Urine Total Protein Fluid Total Protein Vancomycin Trough Rheumatoid Factor Complement C4 Miscellaneous Test Crossmatch 01/13/17 01/14/17 01/14/17 23:42 05:24 05:30 WBC RBC Hgb Hct MCV MCH MCHC RDW Plt Count Lymph % (Auto) [place] % (Auto) Lymph # [place] # Baso # Seg Neutrophils % Seg Neuts % (Manual) Lymphocytes % (Manual) Monocytes % (Manual) Eosinophils % (Manual) Basophils % (Manual) Nucleated RBC % Seg Neutrophils # Seg Neutrophils # Man Lymphocytes # (Manual) Monocytes # (Manual) Eosinophils # (Manual) Basophils # (Manual) PT INR Fibrinogen dRVVT Confirm Interp Factor V Activity POC ABG pH POC ABG pCO2 POC ABG pO2 ABG pO2 ABG HCO3 ABG Base Excess ABG Hemoglobin Oxyhemoglobin Sodium Potassium Chloride Carbon Dioxide BUN 58 H Creatinine Glucose 114 H POC Glucose 155 H 121 H Lactic Acid Calcium Ionized Calcium Phosphorus Magnesium Direct Bilirubin AST ALT Alkaline Phosphatase Lactate Dehydrogenase Troponin T C-Reactive Protein Total Protein Albumin Prealbumin Triglycerides Cholesterol LDL Cholesterol Direct HDL Cholesterol 25-OH Vitamin D Total PTH Intact Urine pH Urine WBC (Auto) Urine Creatinine Urine Total Protein Fluid Total Protein Vancomycin Trough Rheumatoid Factor Complement C4 Miscellaneous Test Crossmatch 01/14/17 01/14/17 01/15/17 12:48 17:36 00:15 WBC RBC Hgb Hct MCV MCH MCHC RDW Plt Count Lymph % (Auto) [place] % (Auto) Lymph # [place] # Baso # Seg Neutrophils % Seg Neuts % (Manual) Lymphocytes % (Manual) Monocytes % (Manual) Eosinophils % (Manual) Basophils % (Manual) Nucleated RBC % Seg Neutrophils # Seg Neutrophils # Man Lymphocytes # (Manual) Monocytes # (Manual) Eosinophils # (Manual) Basophils # (Manual) PT INR Fibrinogen dRVVT Confirm Interp Factor V Activity POC ABG pH POC ABG pCO2 POC ABG pO2 ABG pO2 ABG HCO3 ABG Base Excess ABG Hemoglobin Oxyhemoglobin Sodium Potassium Chloride Carbon Dioxide BUN Creatinine Glucose POC Glucose 130 H 135 H 132 H Lactic Acid Calcium Ionized Calcium Phosphorus Magnesium Direct Bilirubin AST ALT Alkaline Phosphatase Lactate Dehydrogenase Troponin T C-Reactive Protein Total Protein Albumin Prealbumin Triglycerides Cholesterol LDL Cholesterol Direct HDL Cholesterol 25-OH Vitamin D Total PTH Intact Urine pH Urine WBC (Auto) Urine Creatinine Urine Total Protein Fluid Total Protein Vancomycin Trough Rheumatoid Factor Complement C4 Miscellaneous Test Crossmatch 01/15/17 01/15/17 01/15/17 05:01 11:55 12:45 WBC 16.2 H RBC 3.00 L Hgb 8.1 L Hct 25.4 L MCV MCH 27 L MCHC RDW 17.6 H Plt Count Lymph % (Auto) 11.7 L [place] % (Auto) 7.8 H Lymph # [place] # 1.3 H Baso # Seg Neutrophils % 80.1 H Seg Neuts % (Manual) Lymphocytes % (Manual) Monocytes % (Manual) Eosinophils % (Manual) Basophils % (Manual) Nucleated RBC % Seg Neutrophils # 13.0 H Seg Neutrophils # Man Lymphocytes # (Manual) Monocytes # (Manual) Eosinophils # (Manual) Basophils # (Manual) PT INR Fibrinogen dRVVT Confirm Interp Factor V Activity POC ABG pH POC ABG pCO2 POC ABG pO2 ABG pO2 ABG HCO3 ABG Base Excess ABG Hemoglobin Oxyhemoglobin Sodium Potassium Chloride Carbon Dioxide BUN Creatinine Glucose POC Glucose 126 H 125 H Lactic Acid Calcium Ionized Calcium Phosphorus Magnesium Direct Bilirubin AST ALT Alkaline Phosphatase Lactate Dehydrogenase Troponin T C-Reactive Protein Total Protein Albumin Prealbumin Triglycerides Cholesterol LDL Cholesterol Direct HDL Cholesterol 25-OH Vitamin D Total PTH Intact Urine pH Urine WBC (Auto) Urine Creatinine Urine Total Protein Fluid Total Protein Vancomycin Trough Rheumatoid Factor Complement C4 Miscellaneous Test Crossmatch 01/15/17 01/15/17 01/15/17 12:45 17:31 23:39 WBC RBC Hgb Hct MCV MCH MCHC RDW Plt Count Lymph % (Auto) [place] % (Auto) Lymph # [place] # Baso # Seg Neutrophils % Seg Neuts % (Manual) Lymphocytes % (Manual) Monocytes % (Manual) Eosinophils % (Manual) Basophils % (Manual) Nucleated RBC % Seg Neutrophils # Seg Neutrophils # Man Lymphocytes # (Manual) Monocytes # (Manual) Eosinophils # (Manual) Basophils # (Manual) PT INR Fibrinogen dRVVT Confirm Interp Factor V Activity POC ABG pH POC ABG pCO2 POC ABG pO2 ABG pO2 ABG HCO3 ABG Base Excess ABG Hemoglobin Oxyhemoglobin Sodium 136 L Potassium Chloride Carbon Dioxide BUN 87 H Creatinine 1.7 H Glucose 108 H POC Glucose 129 H 112 H Lactic Acid Calcium Ionized Calcium Phosphorus Magnesium Direct Bilirubin AST ALT Alkaline Phosphatase Lactate Dehydrogenase Troponin T C-Reactive Protein Total Protein Albumin Prealbumin Triglycerides Cholesterol LDL Cholesterol Direct HDL Cholesterol 25-OH Vitamin D Total PTH Intact Urine pH Urine WBC (Auto) Urine Creatinine Urine Total Protein Fluid Total Protein Vancomycin Trough Rheumatoid Factor Complement C4 Miscellaneous Test Crossmatch 01/16/17 01/16/17 01/16/17 05:23 11:42 12:32 WBC RBC Hgb Hct MCV MCH MCHC RDW Plt Count Lymph % (Auto) [place] % (Auto) Lymph # [place] # Baso # Seg Neutrophils % Seg Neuts % (Manual) Lymphocytes % (Manual) Monocytes % (Manual) Eosinophils % (Manual) Basophils % (Manual) Nucleated RBC % Seg Neutrophils # Seg Neutrophils # Man Lymphocytes # (Manual) Monocytes # (Manual) Eosinophils # (Manual) Basophils # (Manual) PT INR Fibrinogen dRVVT Confirm Interp Factor V Activity POC ABG pH 7.499 H POC ABG pCO2 30.9 L POC ABG pO2 51 L ABG pO2 ABG HCO3 ABG Base Excess ABG Hemoglobin Oxyhemoglobin Sodium Potassium Chloride Carbon Dioxide BUN Creatinine Glucose POC Glucose 118 H 133 H Lactic Acid Calcium Ionized Calcium Phosphorus Magnesium Direct Bilirubin AST ALT Alkaline Phosphatase Lactate Dehydrogenase Troponin T C-Reactive Protein Total Protein Albumin Prealbumin Triglycerides Cholesterol LDL Cholesterol Direct HDL Cholesterol 25-OH Vitamin D Total PTH Intact Urine pH Urine WBC (Auto) Urine Creatinine Urine Total Protein Fluid Total Protein Vancomycin Trough Rheumatoid Factor Complement C4 Miscellaneous Test Crossmatch 01/16/17 01/16/17 01/16/17 17:52 23:57 Unknown WBC RBC Hgb Hct MCV MCH MCHC RDW Plt Count Lymph % (Auto) [place] % (Auto) Lymph # [place] # Baso # Seg Neutrophils % Seg Neuts % (Manual) Lymphocytes % (Manual) Monocytes % (Manual) Eosinophils % (Manual) Basophils % (Manual) Nucleated RBC % Seg Neutrophils # Seg Neutrophils # Man Lymphocytes # (Manual) Monocytes # (Manual) Eosinophils # (Manual) Basophils # (Manual) PT INR Fibrinogen dRVVT Confirm Interp Factor V Activity POC ABG pH POC ABG pCO2 POC ABG pO2 ABG pO2 ABG HCO3 ABG Base Excess ABG Hemoglobin Oxyhemoglobin Sodium 135 L Potassium Chloride Carbon Dioxide BUN 101 H Creatinine 1.8 H Glucose 117 H POC Glucose 130 H 143 H Lactic Acid Calcium Ionized Calcium Phosphorus 5.80 H Magnesium Direct Bilirubin AST ALT Alkaline Phosphatase Lactate Dehydrogenase Troponin T C-Reactive Protein Total Protein Albumin Prealbumin Triglycerides Cholesterol LDL Cholesterol Direct HDL Cholesterol 25-OH Vitamin D Total PTH Intact Urine pH Urine WBC (Auto) Urine Creatinine Urine Total Protein Fluid Total Protein Vancomycin Trough Rheumatoid Factor Complement C4 Miscellaneous Test Crossmatch 01/17/17 01/17/17 01/17/17 05:30 05:46 11:49 WBC RBC Hgb Hct MCV MCH MCHC RDW Plt Count Lymph % (Auto) [place] % (Auto) Lymph # [place] # Baso # Seg Neutrophils % Seg Neuts % (Manual) Lymphocytes % (Manual) Monocytes % (Manual) Eosinophils % (Manual) Basophils % (Manual) Nucleated RBC % Seg Neutrophils # Seg Neutrophils # Man Lymphocytes # (Manual) Monocytes # (Manual) Eosinophils # (Manual) Basophils # (Manual) PT INR Fibrinogen dRVVT Confirm Interp Factor V Activity POC ABG pH POC ABG pCO2 POC ABG pO2 ABG pO2 ABG HCO3 ABG Base Excess ABG Hemoglobin Oxyhemoglobin Sodium 134 L Potassium Chloride 95.8 L Carbon Dioxide BUN 66 H Creatinine 1.3 H Glucose 138 H POC Glucose 147 H 124 H Lactic Acid Calcium Ionized Calcium Phosphorus Magnesium Direct Bilirubin AST ALT Alkaline Phosphatase 254 H Lactate Dehydrogenase Troponin T C-Reactive Protein Total Protein Albumin 1.3 L Prealbumin Triglycerides Cholesterol LDL Cholesterol Direct HDL Cholesterol 25-OH Vitamin D Total PTH Intact Urine pH Urine WBC (Auto) Urine Creatinine Urine Total Protein Fluid Total Protein Vancomycin Trough Rheumatoid Factor Complement C4 Miscellaneous Test Crossmatch 01/17/17 01/17/17 01/18/17 17:30 23:41 05:15 WBC RBC Hgb Hct MCV MCH MCHC RDW Plt Count Lymph % (Auto) [place] % (Auto) Lymph # [place] # Baso # Seg Neutrophils % Seg Neuts % (Manual) Lymphocytes % (Manual) Monocytes % (Manual) Eosinophils % (Manual) Basophils % (Manual) Nucleated RBC % Seg Neutrophils # Seg Neutrophils # Man Lymphocytes # (Manual) Monocytes # (Manual) Eosinophils # (Manual) Basophils # (Manual) PT INR Fibrinogen dRVVT Confirm Interp Factor V Activity POC ABG pH POC ABG pCO2 POC ABG pO2 ABG pO2 ABG HCO3 ABG Base Excess ABG Hemoglobin Oxyhemoglobin Sodium Potassium Chloride Carbon Dioxide BUN 89 H Creatinine 1.7 H Glucose 118 H POC Glucose 137 H 119 H Lactic Acid Calcium Ionized Calcium Phosphorus Magnesium Direct Bilirubin AST ALT Alkaline Phosphatase Lactate Dehydrogenase Troponin T C-Reactive Protein Total Protein Albumin Prealbumin Triglycerides Cholesterol LDL Cholesterol Direct HDL Cholesterol 25-OH Vitamin D Total PTH Intact Urine pH Urine WBC (Auto) Urine Creatinine Urine Total Protein Fluid Total Protein Vancomycin Trough Rheumatoid Factor Complement C4 Miscellaneous Test Crossmatch 01/18/17 01/18/17 01/18/17 05:19 12:16 18:11 WBC RBC Hgb Hct MCV MCH MCHC RDW Plt Count Lymph % (Auto) [place] % (Auto) Lymph # [place] # Baso # Seg Neutrophils % Seg Neuts % (Manual) Lymphocytes % (Manual) Monocytes % (Manual) Eosinophils % (Manual) Basophils % (Manual) Nucleated RBC % Seg Neutrophils # Seg Neutrophils # Man Lymphocytes # (Manual) Monocytes # (Manual) Eosinophils # (Manual) Basophils # (Manual) PT INR Fibrinogen dRVVT Confirm Interp Factor V Activity POC ABG pH POC ABG pCO2 POC ABG pO2 ABG pO2 ABG HCO3 ABG Base Excess ABG Hemoglobin Oxyhemoglobin Sodium Potassium Chloride Carbon Dioxide BUN Creatinine Glucose POC Glucose 134 H 188 H 113 H Lactic Acid Calcium Ionized Calcium Phosphorus Magnesium Direct Bilirubin AST ALT Alkaline Phosphatase Lactate Dehydrogenase Troponin T C-Reactive Protein Total Protein Albumin Prealbumin Triglycerides Cholesterol LDL Cholesterol Direct HDL Cholesterol 25-OH Vitamin D Total PTH Intact Urine pH Urine WBC (Auto) Urine Creatinine Urine Total Protein Fluid Total Protein Vancomycin Trough Rheumatoid Factor Complement C4 Miscellaneous Test Crossmatch 01/19/17 01/19/17 01/19/17 00:00 05:30 05:36 WBC RBC Hgb Hct MCV MCH MCHC RDW Plt Count Lymph % (Auto) [place] % (Auto) Lymph # [place] # Baso # Seg Neutrophils % Seg Neuts % (Manual) Lymphocytes % (Manual) Monocytes % (Manual) Eosinophils % (Manual) Basophils % (Manual) Nucleated RBC % Seg Neutrophils # Seg Neutrophils # Man Lymphocytes # (Manual) Monocytes # (Manual) Eosinophils # (Manual) Basophils # (Manual) PT INR Fibrinogen dRVVT Confirm Interp Factor V Activity POC ABG pH POC ABG pCO2 POC ABG pO2 ABG pO2 ABG HCO3 ABG Base Excess ABG Hemoglobin Oxyhemoglobin Sodium Potassium Chloride Carbon Dioxide BUN 70 H Creatinine 1.5 H Glucose 121 H POC Glucose 137 H 155 H Lactic Acid Calcium Ionized Calcium Phosphorus 2.10 L D Magnesium Direct Bilirubin AST ALT Alkaline Phosphatase Lactate Dehydrogenase Troponin T C-Reactive Protein Total Protein Albumin Prealbumin Triglycerides Cholesterol LDL Cholesterol Direct HDL Cholesterol 25-OH Vitamin D Total PTH Intact Urine pH Urine WBC (Auto) Urine Creatinine Urine Total Protein Fluid Total Protein Vancomycin Trough Rheumatoid Factor Complement C4 Miscellaneous Test Crossmatch 01/19/17 01/19/17 01/19/17 11:59 15:32 17:57 WBC RBC Hgb Hct MCV MCH MCHC RDW Plt Count Lymph % (Auto) [place] % (Auto) Lymph # [place] # Baso # Seg Neutrophils % Seg Neuts % (Manual) Lymphocytes % (Manual) Monocytes % (Manual) Eosinophils % (Manual) Basophils % (Manual) Nucleated RBC % Seg Neutrophils # Seg Neutrophils # Man Lymphocytes # (Manual) Monocytes # (Manual) Eosinophils # (Manual) Basophils # (Manual) PT INR Fibrinogen dRVVT Confirm Interp Factor V Activity POC ABG pH POC ABG pCO2 33.1 L POC ABG pO2 76 L ABG pO2 ABG HCO3 ABG Base Excess ABG Hemoglobin Oxyhemoglobin Sodium Potassium Chloride Carbon Dioxide BUN Creatinine Glucose POC Glucose 156 H 129 H Lactic Acid Calcium Ionized Calcium Phosphorus Magnesium Direct Bilirubin AST ALT Alkaline Phosphatase Lactate Dehydrogenase Troponin T C-Reactive Protein Total Protein Albumin Prealbumin Triglycerides Cholesterol LDL Cholesterol Direct HDL Cholesterol 25-OH Vitamin D Total PTH Intact Urine pH Urine WBC (Auto) Urine Creatinine Urine Total Protein Fluid Total Protein Vancomycin Trough Rheumatoid Factor Complement C4 Miscellaneous Test Crossmatch 01/19/17 01/20/17 01/20/17 23:49 04:00 05:21 WBC RBC Hgb Hct MCV MCH MCHC RDW Plt Count Lymph % (Auto) [place] % (Auto) Lymph # [place] # Baso # Seg Neutrophils % Seg Neuts % (Manual) Lymphocytes % (Manual) Monocytes % (Manual) Eosinophils % (Manual) Basophils % (Manual) Nucleated RBC % Seg Neutrophils # Seg Neutrophils # Man Lymphocytes # (Manual) Monocytes # (Manual) Eosinophils # (Manual) Basophils # (Manual) PT INR Fibrinogen dRVVT Confirm Interp Factor V Activity POC ABG pH POC ABG pCO2 POC ABG pO2 ABG pO2 ABG HCO3 ABG Base Excess ABG Hemoglobin Oxyhemoglobin Sodium Potassium Chloride Carbon Dioxide BUN 96 H Creatinine 1.9 H Glucose 106 H POC Glucose 125 H 130 H Lactic Acid Calcium Ionized Calcium Phosphorus 2.40 L Magnesium Direct Bilirubin AST ALT Alkaline Phosphatase Lactate Dehydrogenase Troponin T C-Reactive Protein Total Protein Albumin Prealbumin Triglycerides Cholesterol LDL Cholesterol Direct HDL Cholesterol 25-OH Vitamin D Total PTH Intact Urine pH Urine WBC (Auto) Urine Creatinine Urine Total Protein Fluid Total Protein Vancomycin Trough Rheumatoid Factor Complement C4 Miscellaneous Test Crossmatch 01/20/17 01/20/17 01/20/17 11:58 12:17 17:26 WBC RBC Hgb Hct MCV MCH MCHC RDW Plt Count Lymph % (Auto) [place] % (Auto) Lymph # [place] # Baso # Seg Neutrophils % Seg Neuts % (Manual) Lymphocytes % (Manual) Monocytes % (Manual) Eosinophils % (Manual) Basophils % (Manual) Nucleated RBC % Seg Neutrophils # Seg Neutrophils # Man Lymphocytes # (Manual) Monocytes # (Manual) Eosinophils # (Manual) Basophils # (Manual) PT INR Fibrinogen dRVVT Confirm Interp Factor V Activity POC ABG pH POC ABG pCO2 POC ABG pO2 70 L ABG pO2 ABG HCO3 ABG Base Excess ABG Hemoglobin Oxyhemoglobin Sodium Potassium Chloride Carbon Dioxide BUN Creatinine Glucose POC Glucose 118 H 154 H Lactic Acid Calcium Ionized Calcium Phosphorus Magnesium Direct Bilirubin AST ALT Alkaline Phosphatase Lactate Dehydrogenase Troponin T C-Reactive Protein Total Protein Albumin Prealbumin Triglycerides Cholesterol LDL Cholesterol Direct HDL Cholesterol 25-OH Vitamin D Total PTH Intact Urine pH Urine WBC (Auto) Urine Creatinine Urine Total Protein Fluid Total Protein Vancomycin Trough Rheumatoid Factor Complement C4 Miscellaneous Test Crossmatch 01/21/17 01/21/17 01/21/17 04:00 04:56 11:46 WBC RBC Hgb Hct MCV MCH MCHC RDW Plt Count Lymph % (Auto) [place] % (Auto) Lymph # [place] # Baso # Seg Neutrophils % Seg Neuts % (Manual) Lymphocytes % (Manual) Monocytes % (Manual) Eosinophils % (Manual) Basophils % (Manual) Nucleated RBC % Seg Neutrophils # Seg Neutrophils # Man Lymphocytes # (Manual) Monocytes # (Manual) Eosinophils # (Manual) Basophils # (Manual) PT INR Fibrinogen dRVVT Confirm Interp Factor V Activity POC ABG pH POC ABG pCO2 POC ABG pO2 ABG pO2 ABG HCO3 ABG Base Excess ABG Hemoglobin Oxyhemoglobin Sodium Potassium 3.5 L Chloride 97.4 L Carbon Dioxide BUN 66 H Creatinine 1.4 H Glucose POC Glucose 116 H 106 H Lactic Acid Calcium Ionized Calcium Phosphorus 2.10 L Magnesium Direct Bilirubin AST ALT Alkaline Phosphatase Lactate Dehydrogenase Troponin T C-Reactive Protein Total Protein Albumin Prealbumin Triglycerides Cholesterol LDL Cholesterol Direct HDL Cholesterol 25-OH Vitamin D Total PTH Intact Urine pH Urine WBC (Auto) Urine Creatinine Urine Total Protein Fluid Total Protein Vancomycin Trough Rheumatoid Factor Complement C4 Miscellaneous Test Crossmatch 01/21/17 01/21/17 01/22/17 17:25 23:49 05:35 WBC RBC Hgb Hct MCV MCH MCHC RDW Plt Count Lymph % (Auto) [place] % (Auto) Lymph # [place] # Baso # Seg Neutrophils % Seg Neuts % (Manual) Lymphocytes % (Manual) Monocytes % (Manual) Eosinophils % (Manual) Basophils % (Manual) Nucleated RBC % Seg Neutrophils # Seg Neutrophils # Man Lymphocytes # (Manual) Monocytes # (Manual) Eosinophils # (Manual) Basophils # (Manual) PT INR Fibrinogen dRVVT Confirm Interp Factor V Activity POC ABG pH POC ABG pCO2 POC ABG pO2 ABG pO2 ABG HCO3 ABG Base Excess ABG Hemoglobin Oxyhemoglobin Sodium Potassium Chloride Carbon Dioxide BUN Creatinine Glucose POC Glucose 106 H 133 H 107 H Lactic Acid Calcium Ionized Calcium Phosphorus Magnesium Direct Bilirubin AST ALT Alkaline Phosphatase Lactate Dehydrogenase Troponin T C-Reactive Protein Total Protein Albumin Prealbumin Triglycerides Cholesterol LDL Cholesterol Direct HDL Cholesterol 25-OH Vitamin D Total PTH Intact Urine pH Urine WBC (Auto) Urine Creatinine Urine Total Protein Fluid Total Protein Vancomycin Trough Rheumatoid Factor Complement C4 Miscellaneous Test Crossmatch 01/22/17 01/22/17 01/22/17 07:20 07:20 11:31 WBC RBC 2.75 L Hgb 7.5 L Hct 22.7 L MCV MCH 27 L MCHC RDW 17.5 H Plt Count Lymph % (Auto) [place] % (Auto) Lymph # [place] # Baso # Seg Neutrophils % Seg Neuts % (Manual) Lymphocytes % (Manual) Monocytes % (Manual) Eosinophils % (Manual) Basophils % (Manual) Nucleated RBC % Seg Neutrophils # Seg Neutrophils # Man Lymphocytes # (Manual) Monocytes # (Manual) Eosinophils # (Manual) Basophils # (Manual) PT INR Fibrinogen dRVVT Confirm Interp Factor V Activity POC ABG pH POC ABG pCO2 POC ABG pO2 ABG pO2 ABG HCO3 ABG Base Excess ABG Hemoglobin Oxyhemoglobin Sodium Potassium 3.3 L Chloride Carbon Dioxide BUN 42 H Creatinine Glucose 105 H POC Glucose 124 H Lactic Acid Calcium Ionized Calcium Phosphorus 1.70 L Magnesium Direct Bilirubin AST ALT Alkaline Phosphatase Lactate Dehydrogenase Troponin T C-Reactive Protein Total Protein Albumin Prealbumin Triglycerides Cholesterol LDL Cholesterol Direct HDL Cholesterol 25-OH Vitamin D Total PTH Intact Urine pH Urine WBC (Auto) Urine Creatinine Urine Total Protein Fluid Total Protein Vancomycin Trough Rheumatoid Factor Complement C4 Miscellaneous Test Crossmatch 01/22/17 01/22/17 01/23/17 17:16 23:35 05:35 WBC RBC Hgb Hct MCV MCH MCHC RDW Plt Count Lymph % (Auto) [place] % (Auto) Lymph # [place] # Baso # Seg Neutrophils % Seg Neuts % (Manual) Lymphocytes % (Manual) Monocytes % (Manual) Eosinophils % (Manual) Basophils % (Manual) Nucleated RBC % Seg Neutrophils # Seg Neutrophils # Man Lymphocytes # (Manual) Monocytes # (Manual) Eosinophils # (Manual) Basophils # (Manual) PT INR Fibrinogen dRVVT Confirm Interp Factor V Activity POC ABG pH POC ABG pCO2 POC ABG pO2 ABG pO2 ABG HCO3 ABG Base Excess ABG Hemoglobin Oxyhemoglobin Sodium Potassium Chloride Carbon Dioxide BUN Creatinine Glucose POC Glucose 135 H 120 H 111 H Lactic Acid Calcium Ionized Calcium Phosphorus Magnesium Direct Bilirubin AST ALT Alkaline Phosphatase Lactate Dehydrogenase Troponin T C-Reactive Protein Total Protein Albumin Prealbumin Triglycerides Cholesterol LDL Cholesterol Direct HDL Cholesterol 25-OH Vitamin D Total PTH Intact Urine pH Urine WBC (Auto) Urine Creatinine Urine Total Protein Fluid Total Protein Vancomycin Trough Rheumatoid Factor Complement C4 Miscellaneous Test Crossmatch 01/23/17 01/23/17 01/23/17 06:10 17:27 23:44 WBC RBC Hgb Hct MCV MCH MCHC RDW Plt Count Lymph % (Auto) [place] % (Auto) Lymph # [place] # Baso # Seg Neutrophils % Seg Neuts % (Manual) Lymphocytes % (Manual) Monocytes % (Manual) Eosinophils % (Manual) Basophils % (Manual) Nucleated RBC % Seg Neutrophils # Seg Neutrophils # Man Lymphocytes # (Manual) Monocytes # (Manual) Eosinophils # (Manual) Basophils # (Manual) PT INR Fibrinogen dRVVT Confirm Interp Factor V Activity POC ABG pH POC ABG pCO2 POC ABG pO2 ABG pO2 ABG HCO3 ABG Base Excess ABG Hemoglobin Oxyhemoglobin Sodium Potassium 3.3 L Chloride Carbon Dioxide BUN 66 H Creatinine 1.3 H Glucose 109 H POC Glucose 120 H 115 H Lactic Acid Calcium Ionized Calcium Phosphorus 2.20 L D Magnesium Direct Bilirubin AST ALT Alkaline Phosphatase Lactate Dehydrogenase Troponin T C-Reactive Protein Total Protein Albumin Prealbumin Triglycerides Cholesterol LDL Cholesterol Direct HDL Cholesterol 25-OH Vitamin D Total PTH Intact Urine pH Urine WBC (Auto) Urine Creatinine Urine Total Protein Fluid Total Protein Vancomycin Trough Rheumatoid Factor Complement C4 Miscellaneous Test Crossmatch 01/24/17 01/24/17 01/24/17 05:19 05:50 12:19 WBC RBC Hgb Hct MCV MCH MCHC RDW Plt Count Lymph % (Auto) [place] % (Auto) Lymph # [place] # Baso # Seg Neutrophils % Seg Neuts % (Manual) Lymphocytes % (Manual) Monocytes % (Manual) Eosinophils % (Manual) Basophils % (Manual) Nucleated RBC % Seg Neutrophils # Seg Neutrophils # Man Lymphocytes # (Manual) Monocytes # (Manual) Eosinophils # (Manual) Basophils # (Manual) PT INR Fibrinogen dRVVT Confirm Interp Factor V Activity POC ABG pH POC ABG pCO2 POC ABG pO2 ABG pO2 ABG HCO3 ABG Base Excess ABG Hemoglobin Oxyhemoglobin Sodium Potassium Chloride Carbon Dioxide BUN 47 H Creatinine Glucose 117 H POC Glucose 126 H 119 H Lactic Acid Calcium Ionized Calcium Phosphorus 2.30 L Magnesium 1.60 L Direct Bilirubin AST ALT Alkaline Phosphatase Lactate Dehydrogenase Troponin T C-Reactive Protein Total Protein Albumin Prealbumin Triglycerides Cholesterol LDL Cholesterol Direct HDL Cholesterol 25-OH Vitamin D Total PTH Intact Urine pH Urine WBC (Auto) Urine Creatinine Urine Total Protein Fluid Total Protein Vancomycin Trough Rheumatoid Factor Complement C4 Miscellaneous Test Crossmatch 01/24/17 01/25/17 01/25/17 17:08 00:37 04:00 WBC RBC Hgb Hct MCV MCH MCHC RDW Plt Count Lymph % (Auto) [place] % (Auto) Lymph # [place] # Baso # Seg Neutrophils % Seg Neuts % (Manual) Lymphocytes % (Manual) Monocytes % (Manual) Eosinophils % (Manual) Basophils % (Manual) Nucleated RBC % Seg Neutrophils # Seg Neutrophils # Man Lymphocytes # (Manual) Monocytes # (Manual) Eosinophils # (Manual) Basophils # (Manual) PT INR Fibrinogen dRVVT Confirm Interp Factor V Activity POC ABG pH POC ABG pCO2 POC ABG pO2 ABG pO2 ABG HCO3 ABG Base Excess ABG Hemoglobin Oxyhemoglobin Sodium Potassium Chloride Carbon Dioxide BUN 72 H Creatinine 1.3 H Glucose POC Glucose 127 H 110 H Lactic Acid Calcium Ionized Calcium Phosphorus Magnesium Direct Bilirubin AST ALT Alkaline Phosphatase Lactate Dehydrogenase Troponin T C-Reactive Protein Total Protein Albumin Prealbumin Triglycerides Cholesterol LDL Cholesterol Direct HDL Cholesterol 25-OH Vitamin D Total PTH Intact Urine pH Urine WBC (Auto) Urine Creatinine Urine Total Protein Fluid Total Protein Vancomycin Trough Rheumatoid Factor Complement C4 Miscellaneous Test Crossmatch 01/25/17 01/25/17 01/25/17 04:00 11:15 13:05 WBC RBC 2.49 L Hgb 6.7 L Hct 20.9 L MCV MCH 27 L MCHC RDW 18.8 H Plt Count Lymph % (Auto) [place] % (Auto) 10.1 H Lymph # [place] # 1.0 H Baso # Seg Neutrophils % Seg Neuts % (Manual) Lymphocytes % (Manual) Monocytes % (Manual) Eosinophils % (Manual) Basophils % (Manual) Nucleated RBC % Seg Neutrophils # Seg Neutrophils # Man Lymphocytes # (Manual) Monocytes # (Manual) Eosinophils # (Manual) Basophils # (Manual) PT INR Fibrinogen dRVVT Confirm Interp Factor V Activity POC ABG pH POC ABG pCO2 POC ABG pO2 ABG pO2 ABG HCO3 ABG Base Excess ABG Hemoglobin Oxyhemoglobin Sodium Potassium Chloride Carbon Dioxide BUN Creatinine Glucose POC Glucose 128 H Lactic Acid Calcium Ionized Calcium Phosphorus Magnesium Direct Bilirubin AST ALT Alkaline Phosphatase Lactate Dehydrogenase Troponin T C-Reactive Protein Total Protein Albumin Prealbumin Triglycerides Cholesterol LDL Cholesterol Direct HDL Cholesterol 25-OH Vitamin D Total PTH Intact Urine pH Urine WBC (Auto) Urine Creatinine Urine Total Protein Fluid Total Protein Vancomycin Trough Rheumatoid Factor Complement C4 Miscellaneous Test Crossmatch See Detail 01/25/17 01/25/17 01/26/17 18:02 23:07 01:20 WBC RBC Hgb Hct MCV MCH MCHC RDW Plt Count Lymph % (Auto) [place] % (Auto) Lymph # [place] # Baso # Seg Neutrophils % Seg Neuts % (Manual) Lymphocytes % (Manual) Monocytes % (Manual) Eosinophils % (Manual) Basophils % (Manual) Nucleated RBC % Seg Neutrophils # Seg Neutrophils # Man Lymphocytes # (Manual) Monocytes # (Manual) Eosinophils # (Manual) Basophils # (Manual) PT INR Fibrinogen dRVVT Confirm Interp Factor V Activity POC ABG pH POC ABG pCO2 POC ABG pO2 ABG pO2 ABG HCO3 ABG Base Excess ABG Hemoglobin Oxyhemoglobin Sodium Potassium Chloride Carbon Dioxide BUN Creatinine Glucose POC Glucose 120 H 123 H 112 H Lactic Acid Calcium Ionized Calcium Phosphorus Magnesium Direct Bilirubin AST ALT Alkaline Phosphatase Lactate Dehydrogenase Troponin T C-Reactive Protein Total Protein Albumin Prealbumin Triglycerides Cholesterol LDL Cholesterol Direct HDL Cholesterol 25-OH Vitamin D Total PTH Intact Urine pH Urine WBC (Auto) Urine Creatinine Urine Total Protein Fluid Total Protein Vancomycin Trough Rheumatoid Factor Complement C4 Miscellaneous Test Crossmatch 01/26/17 01/26/17 01/26/17 04:20 04:20 11:23 WBC 13.1 H RBC 3.28 L Hgb 9.0 L Hct 26.9 L D MCV MCH 27 L MCHC RDW 17.2 H Plt Count Lymph % (Auto) [place] % (Auto) 9.0 H Lymph # [place] # 1.2 H Baso # Seg Neutrophils % 73.1 H Seg Neuts % (Manual) Lymphocytes % (Manual) Monocytes % (Manual) Eosinophils % (Manual) Basophils % (Manual) Nucleated RBC % Seg Neutrophils # 9.6 H Seg Neutrophils # Man Lymphocytes # (Manual) Monocytes # (Manual) Eosinophils # (Manual) Basophils # (Manual) PT INR Fibrinogen dRVVT Confirm Interp Factor V Activity POC ABG pH POC ABG pCO2 POC ABG pO2 ABG pO2 ABG HCO3 ABG Base Excess ABG Hemoglobin Oxyhemoglobin Sodium Potassium Chloride Carbon Dioxide BUN 51 H Creatinine Glucose 117 H POC Glucose 125 H Lactic Acid Calcium Ionized Calcium Phosphorus Magnesium Direct Bilirubin AST ALT Alkaline Phosphatase Lactate Dehydrogenase Troponin T C-Reactive Protein Total Protein Albumin Prealbumin Triglycerides Cholesterol LDL Cholesterol Direct HDL Cholesterol 25-OH Vitamin D Total PTH Intact Urine pH Urine WBC (Auto) Urine Creatinine Urine Total Protein Fluid Total Protein Vancomycin Trough Rheumatoid Factor Complement C4 Miscellaneous Test Crossmatch 01/26/17 01/27/17 01/27/17 17:11 00:30 04:00 WBC RBC Hgb Hct MCV MCH MCHC RDW Plt Count Lymph % (Auto) [place] % (Auto) Lymph # [place] # Baso # Seg Neutrophils % Seg Neuts % (Manual) Lymphocytes % (Manual) Monocytes % (Manual) Eosinophils % (Manual) Basophils % (Manual) Nucleated RBC % Seg Neutrophils # Seg Neutrophils # Man Lymphocytes # (Manual) Monocytes # (Manual) Eosinophils # (Manual) Basophils # (Manual) PT INR Fibrinogen dRVVT Confirm Interp Factor V Activity POC ABG pH POC ABG pCO2 POC ABG pO2 ABG pO2 ABG HCO3 ABG Base Excess ABG Hemoglobin Oxyhemoglobin Sodium Potassium Chloride 97.7 L Carbon Dioxide 21 L BUN 79 H Creatinine 1.7 H D Glucose 112 H POC Glucose 133 H 135 H Lactic Acid Calcium Ionized Calcium Phosphorus 5.00 H D Magnesium Direct Bilirubin AST ALT Alkaline Phosphatase Lactate Dehydrogenase Troponin T C-Reactive Protein Total Protein Albumin Prealbumin Triglycerides Cholesterol LDL Cholesterol Direct HDL Cholesterol 25-OH Vitamin D Total PTH Intact Urine pH Urine WBC (Auto) Urine Creatinine Urine Total Protein Fluid Total Protein Vancomycin Trough Rheumatoid Factor Complement C4 Miscellaneous Test Crossmatch 01/27/17 01/27/17 01/27/17 05:12 12:18 17:25 WBC RBC Hgb Hct MCV MCH MCHC RDW Plt Count Lymph % (Auto) [place] % (Auto) Lymph # [place] # Baso # Seg Neutrophils % Seg Neuts % (Manual) Lymphocytes % (Manual) Monocytes % (Manual) Eosinophils % (Manual) Basophils % (Manual) Nucleated RBC % Seg Neutrophils # Seg Neutrophils # Man Lymphocytes # (Manual) Monocytes # (Manual) Eosinophils # (Manual) Basophils # (Manual) PT INR Fibrinogen dRVVT Confirm Interp Factor V Activity POC ABG pH POC ABG pCO2 POC ABG pO2 ABG pO2 ABG HCO3 ABG Base Excess ABG Hemoglobin Oxyhemoglobin Sodium Potassium Chloride Carbon Dioxide BUN Creatinine Glucose POC Glucose 116 H 153 H 152 H Lactic Acid Calcium Ionized Calcium Phosphorus Magnesium Direct Bilirubin AST ALT Alkaline Phosphatase Lactate Dehydrogenase Troponin T C-Reactive Protein Total Protein Albumin Prealbumin Triglycerides Cholesterol LDL Cholesterol Direct HDL Cholesterol 25-OH Vitamin D Total PTH Intact Urine pH Urine WBC (Auto) Urine Creatinine Urine Total Protein Fluid Total Protein Vancomycin Trough Rheumatoid Factor Complement C4 Miscellaneous Test Crossmatch 01/27/17 01/28/17 01/28/17 23:42 04:00 04:00 WBC 14.4 H RBC 2.82 L Hgb 7.4 L Hct 23.5 L MCV MCH 26 L MCHC RDW 17.6 H Plt Count Lymph % (Auto) 10.2 L [place] % (Auto) 11.0 H Lymph # [place] # 1.6 H Baso # Seg Neutrophils % 78.0 H Seg Neuts % (Manual) Lymphocytes % (Manual) Monocytes % (Manual) Eosinophils % (Manual) Basophils % (Manual) Nucleated RBC % Seg Neutrophils # 11.3 H Seg Neutrophils # Man Lymphocytes # (Manual) Monocytes # (Manual) Eosinophils # (Manual) Basophils # (Manual) PT INR Fibrinogen dRVVT Confirm Interp Factor V Activity POC ABG pH POC ABG pCO2 POC ABG pO2 ABG pO2 ABG HCO3 ABG Base Excess ABG Hemoglobin Oxyhemoglobin Sodium Potassium Chloride Carbon Dioxide BUN 55 H Creatinine 1.3 H Glucose 114 H POC Glucose 121 H Lactic Acid Calcium Ionized Calcium Phosphorus Magnesium Direct Bilirubin AST ALT Alkaline Phosphatase Lactate Dehydrogenase Troponin T C-Reactive Protein Total Protein Albumin 1.4 L Prealbumin Triglycerides Cholesterol LDL Cholesterol Direct HDL Cholesterol 25-OH Vitamin D Total PTH Intact Urine pH Urine WBC (Auto) Urine Creatinine Urine Total Protein Fluid Total Protein Vancomycin Trough Rheumatoid Factor Complement C4 Miscellaneous Test Crossmatch 01/28/17 01/28/17 01/29/17 04:59 12:30 00:02 WBC RBC Hgb Hct MCV MCH MCHC RDW Plt Count Lymph % (Auto) [place] % (Auto) Lymph # [place] # Baso # Seg Neutrophils % Seg Neuts % (Manual) Lymphocytes % (Manual) Monocytes % (Manual) Eosinophils % (Manual) Basophils % (Manual) Nucleated RBC % Seg Neutrophils # Seg Neutrophils # Man Lymphocytes # (Manual) Monocytes # (Manual) Eosinophils # (Manual) Basophils # (Manual) PT INR Fibrinogen dRVVT Confirm Interp Factor V Activity POC ABG pH POC ABG pCO2 POC ABG pO2 ABG pO2 ABG HCO3 ABG Base Excess ABG Hemoglobin Oxyhemoglobin Sodium Potassium Chloride Carbon Dioxide BUN Creatinine Glucose POC Glucose 126 H 119 H 138 H Lactic Acid Calcium Ionized Calcium Phosphorus Magnesium Direct Bilirubin AST ALT Alkaline Phosphatase Lactate Dehydrogenase Troponin T C-Reactive Protein Total Protein Albumin Prealbumin Triglycerides Cholesterol LDL Cholesterol Direct HDL Cholesterol 25-OH Vitamin D Total PTH Intact Urine pH Urine WBC (Auto) Urine Creatinine Urine Total Protein Fluid Total Protein Vancomycin Trough Rheumatoid Factor Complement C4 Miscellaneous Test Crossmatch 01/29/17 01/29/17 01/29/17 04:58 06:15 11:35 WBC RBC Hgb Hct MCV MCH MCHC RDW Plt Count Lymph % (Auto) [place] % (Auto) Lymph # [place] # Baso # Seg Neutrophils % Seg Neuts % (Manual) Lymphocytes % (Manual) Monocytes % (Manual) Eosinophils % (Manual) Basophils % (Manual) Nucleated RBC % Seg Neutrophils # Seg Neutrophils # Man Lymphocytes # (Manual) Monocytes # (Manual) Eosinophils # (Manual) Basophils # (Manual) PT INR Fibrinogen dRVVT Confirm Interp Factor V Activity POC ABG pH POC ABG pCO2 POC ABG pO2 ABG pO2 ABG HCO3 ABG Base Excess ABG Hemoglobin Oxyhemoglobin Sodium Potassium Chloride Carbon Dioxide BUN 85 H Creatinine 1.7 H Glucose 105 H POC Glucose 114 H 110 H Lactic Acid Calcium Ionized Calcium Phosphorus Magnesium 2.40 H Direct Bilirubin AST ALT Alkaline Phosphatase Lactate Dehydrogenase Troponin T C-Reactive Protein Total Protein Albumin Prealbumin Triglycerides Cholesterol LDL Cholesterol Direct HDL Cholesterol 25-OH Vitamin D Total PTH Intact Urine pH Urine WBC (Auto) Urine Creatinine Urine Total Protein Fluid Total Protein Vancomycin Trough Rheumatoid Factor Complement C4 Miscellaneous Test Crossmatch 01/29/17 01/29/17 01/30/17 18:24 23:41 05:12 WBC RBC Hgb Hct MCV MCH MCHC RDW Plt Count Lymph % (Auto) [place] % (Auto) Lymph # [place] # Baso # Seg Neutrophils % Seg Neuts % (Manual) Lymphocytes % (Manual) Monocytes % (Manual) Eosinophils % (Manual) Basophils % (Manual) Nucleated RBC % Seg Neutrophils # Seg Neutrophils # Man Lymphocytes # (Manual) Monocytes # (Manual) Eosinophils # (Manual) Basophils # (Manual) PT INR Fibrinogen dRVVT Confirm Interp Factor V Activity POC ABG pH POC ABG pCO2 POC ABG pO2 ABG pO2 ABG HCO3 ABG Base Excess ABG Hemoglobin Oxyhemoglobin Sodium Potassium Chloride Carbon Dioxide BUN Creatinine Glucose POC Glucose 109 H 134 H 109 H Lactic Acid Calcium Ionized Calcium Phosphorus Magnesium Direct Bilirubin AST ALT Alkaline Phosphatase Lactate Dehydrogenase Troponin T C-Reactive Protein Total Protein Albumin Prealbumin Triglycerides Cholesterol LDL Cholesterol Direct HDL Cholesterol 25-OH Vitamin D Total PTH Intact Urine pH Urine WBC (Auto) Urine Creatinine Urine Total Protein Fluid Total Protein Vancomycin Trough Rheumatoid Factor Complement C4 Miscellaneous Test Crossmatch 01/30/17 01/30/17 01/30/17 11:26 17:43 23:39 WBC RBC Hgb Hct MCV MCH MCHC RDW Plt Count Lymph % (Auto) [place] % (Auto) Lymph # [place] # Baso # Seg Neutrophils % Seg Neuts % (Manual) Lymphocytes % (Manual) Monocytes % (Manual) Eosinophils % (Manual) Basophils % (Manual) Nucleated RBC % Seg Neutrophils # Seg Neutrophils # Man Lymphocytes # (Manual) Monocytes # (Manual) Eosinophils # (Manual) Basophils # (Manual) PT INR Fibrinogen dRVVT Confirm Interp Factor V Activity POC ABG pH POC ABG pCO2 POC ABG pO2 ABG pO2 ABG HCO3 ABG Base Excess ABG Hemoglobin Oxyhemoglobin Sodium Potassium Chloride Carbon Dioxide BUN Creatinine Glucose POC Glucose 135 H 143 H 122 H Lactic Acid Calcium Ionized Calcium Phosphorus Magnesium Direct Bilirubin AST ALT Alkaline Phosphatase Lactate Dehydrogenase Troponin T C-Reactive Protein Total Protein Albumin Prealbumin Triglycerides Cholesterol LDL Cholesterol Direct HDL Cholesterol 25-OH Vitamin D Total PTH Intact Urine pH Urine WBC (Auto) Urine Creatinine Urine Total Protein Fluid Total Protein Vancomycin Trough Rheumatoid Factor Complement C4 Miscellaneous Test Crossmatch 01/31/17 01/31/17 01/31/17 04:00 05:40 11:12 WBC RBC Hgb Hct MCV MCH MCHC RDW Plt Count Lymph % (Auto) [place] % (Auto) Lymph # [place] # Baso # Seg Neutrophils % Seg Neuts % (Manual) Lymphocytes % (Manual) Monocytes % (Manual) Eosinophils % (Manual) Basophils % (Manual) Nucleated RBC % Seg Neutrophils # Seg Neutrophils # Man Lymphocytes # (Manual) Monocytes # (Manual) Eosinophils # (Manual) Basophils # (Manual) PT INR Fibrinogen dRVVT Confirm Interp Factor V Activity POC ABG pH POC ABG pCO2 POC ABG pO2 ABG pO2 ABG HCO3 ABG Base Excess ABG Hemoglobin Oxyhemoglobin Sodium Potassium Chloride Carbon Dioxide BUN 78 H Creatinine 1.5 H Glucose 108 H POC Glucose 123 H Lactic Acid Calcium Ionized Calcium Phosphorus Magnesium Direct Bilirubin AST ALT Alkaline Phosphatase Lactate Dehydrogenase Troponin T C-Reactive Protein 8.10 H Total Protein Albumin Prealbumin Triglycerides Cholesterol LDL Cholesterol Direct HDL Cholesterol 25-OH Vitamin D Total PTH Intact Urine pH Urine WBC (Auto) Urine Creatinine Urine Total Protein Fluid Total Protein Vancomycin Trough Rheumatoid Factor Complement C4 Miscellaneous Test Crossmatch 01/31/17 01/31/17 01/31/17 11:16 17:45 17:50 WBC RBC Hgb Hct MCV MCH MCHC RDW Plt Count Lymph % (Auto) [place] % (Auto) Lymph # [place] # Baso # Seg Neutrophils % Seg Neuts % (Manual) Lymphocytes % (Manual) Monocytes % (Manual) Eosinophils % (Manual) Basophils % (Manual) Nucleated RBC % Seg Neutrophils # Seg Neutrophils # Man Lymphocytes # (Manual) Monocytes # (Manual) Eosinophils # (Manual) Basophils # (Manual) PT INR Fibrinogen dRVVT Confirm Interp Factor V Activity POC ABG pH POC ABG pCO2 POC ABG pO2 ABG pO2 ABG HCO3 ABG Base Excess ABG Hemoglobin Oxyhemoglobin Sodium Potassium Chloride Carbon Dioxide BUN Creatinine Glucose POC Glucose 119 H 111 H Lactic Acid Calcium Ionized Calcium Phosphorus Magnesium Direct Bilirubin AST ALT Alkaline Phosphatase Lactate Dehydrogenase Troponin T C-Reactive Protein Total Protein Albumin Prealbumin Triglycerides Cholesterol LDL Cholesterol Direct HDL Cholesterol 25-OH Vitamin D Total PTH Intact 6.76 L Urine pH Urine WBC (Auto) Urine Creatinine Urine Total Protein Fluid Total Protein Vancomycin Trough Rheumatoid Factor Complement C4 Miscellaneous Test Crossmatch 01/31/17 02/01/17 02/01/17 23:19 05:42 09:24 WBC RBC Hgb Hct MCV MCH MCHC RDW Plt Count Lymph % (Auto) [place] % (Auto) Lymph # [place] # Baso # Seg Neutrophils % Seg Neuts % (Manual) Lymphocytes % (Manual) Monocytes % (Manual) Eosinophils % (Manual) Basophils % (Manual) Nucleated RBC % Seg Neutrophils # Seg Neutrophils # Man Lymphocytes # (Manual) Monocytes # (Manual) Eosinophils # (Manual) Basophils # (Manual) PT INR Fibrinogen dRVVT Confirm Interp Factor V Activity POC ABG pH POC ABG pCO2 POC ABG pO2 ABG pO2 ABG HCO3 ABG Base Excess ABG Hemoglobin Oxyhemoglobin Sodium Potassium Chloride Carbon Dioxide BUN Creatinine Glucose POC Glucose 118 H 122 H Lactic Acid Calcium Ionized Calcium Phosphorus Magnesium 2.60 H Direct Bilirubin AST ALT Alkaline Phosphatase Lactate Dehydrogenase Troponin T C-Reactive Protein Total Protein Albumin Prealbumin Triglycerides Cholesterol LDL Cholesterol Direct HDL Cholesterol 25-OH Vitamin D Total PTH Intact Urine pH Urine WBC (Auto) Urine Creatinine Urine Total Protein Fluid Total Protein Vancomycin Trough Rheumatoid Factor Complement C4 Miscellaneous Test Crossmatch 02/01/17 02/01/17 02/02/17 09:24 12:15 07:40 WBC RBC Hgb Hct MCV MCH MCHC RDW Plt Count Lymph % (Auto) [place] % (Auto) Lymph # [place] # Baso # Seg Neutrophils % Seg Neuts % (Manual) Lymphocytes % (Manual) Monocytes % (Manual) Eosinophils % (Manual) Basophils % (Manual) Nucleated RBC % Seg Neutrophils # Seg Neutrophils # Man Lymphocytes # (Manual) Monocytes # (Manual) Eosinophils # (Manual) Basophils # (Manual) PT INR Fibrinogen dRVVT Confirm Interp Factor V Activity POC ABG pH POC ABG pCO2 POC ABG pO2 ABG pO2 ABG HCO3 ABG Base Excess ABG Hemoglobin Oxyhemoglobin Sodium Potassium Chloride Carbon Dioxide BUN 102 H 72 H Creatinine 1.9 H 1.5 H Glucose 120 H POC Glucose 156 H Lactic Acid Calcium Ionized Calcium Phosphorus Magnesium Direct Bilirubin AST ALT Alkaline Phosphatase Lactate Dehydrogenase Troponin T C-Reactive Protein Total Protein Albumin Prealbumin Triglycerides Cholesterol LDL Cholesterol Direct HDL Cholesterol 25-OH Vitamin D Total PTH Intact Urine pH Urine WBC (Auto) Urine Creatinine Urine Total Protein Fluid Total Protein Vancomycin Trough Rheumatoid Factor Complement C4 Miscellaneous Test Crossmatch 02/02/17 02/02/17 02/03/17 10:16 12:11 00:08 WBC 12.0 H RBC 3.08 L Hgb 8.3 L Hct 25.6 L MCV MCH 27 L MCHC RDW 18.2 H Plt Count Lymph % (Auto) [place] % (Auto) Lymph # [place] # Baso # Seg Neutrophils % 78.4 H Seg Neuts % (Manual) Lymphocytes % (Manual) Monocytes % (Manual) Eosinophils % (Manual) Basophils % (Manual) Nucleated RBC % Seg Neutrophils # 9.4 H Seg Neutrophils # Man Lymphocytes # (Manual) Monocytes # (Manual) Eosinophils # (Manual) Basophils # (Manual) PT INR Fibrinogen dRVVT Confirm Interp Factor V Activity POC ABG pH POC ABG pCO2 POC ABG pO2 ABG pO2 ABG HCO3 ABG Base Excess ABG Hemoglobin Oxyhemoglobin Sodium Potassium Chloride Carbon Dioxide BUN Creatinine Glucose POC Glucose 110 H 120 H Lactic Acid Calcium Ionized Calcium Phosphorus Magnesium Direct Bilirubin AST ALT Alkaline Phosphatase Lactate Dehydrogenase Troponin T C-Reactive Protein Total Protein Albumin Prealbumin Triglycerides Cholesterol LDL Cholesterol Direct HDL Cholesterol 25-OH Vitamin D Total PTH Intact Urine pH Urine WBC (Auto) Urine Creatinine Urine Total Protein Fluid Total Protein Vancomycin Trough Rheumatoid Factor Complement C4 Miscellaneous Test Crossmatch 02/03/17 02/03/17 02/03/17 05:41 07:38 11:31 WBC RBC Hgb Hct MCV MCH MCHC RDW Plt Count Lymph % (Auto) [place] % (Auto) Lymph # [place] # Baso # Seg Neutrophils % Seg Neuts % (Manual) Lymphocytes % (Manual) Monocytes % (Manual) Eosinophils % (Manual) Basophils % (Manual) Nucleated RBC % Seg Neutrophils # Seg Neutrophils # Man Lymphocytes # (Manual) Monocytes # (Manual) Eosinophils # (Manual) Basophils # (Manual) PT INR Fibrinogen dRVVT Confirm Interp Factor V Activity POC ABG pH POC ABG pCO2 POC ABG pO2 ABG pO2 ABG HCO3 ABG Base Excess ABG Hemoglobin Oxyhemoglobin Sodium 134 L Potassium Chloride Carbon Dioxide 21 L BUN 91 H Creatinine 1.9 H Glucose 110 H POC Glucose 119 H 119 H Lactic Acid Calcium 10.3 H Ionized Calcium Phosphorus Magnesium Direct Bilirubin AST ALT Alkaline Phosphatase Lactate Dehydrogenase Troponin T C-Reactive Protein Total Protein Albumin Prealbumin Triglycerides Cholesterol LDL Cholesterol Direct HDL Cholesterol 25-OH Vitamin D Total PTH Intact Urine pH Urine WBC (Auto) Urine Creatinine Urine Total Protein Fluid Total Protein Vancomycin Trough Rheumatoid Factor Complement C4 Miscellaneous Test Crossmatch 02/03/17 02/04/17 02/04/17 17:13 04:00 05:18 WBC RBC Hgb Hct MCV MCH MCHC RDW Plt Count Lymph % (Auto) [place] % (Auto) Lymph # [place] # Baso # Seg Neutrophils % Seg Neuts % (Manual) Lymphocytes % (Manual) Monocytes % (Manual) Eosinophils % (Manual) Basophils % (Manual) Nucleated RBC % Seg Neutrophils # Seg Neutrophils # Man Lymphocytes # (Manual) Monocytes # (Manual) Eosinophils # (Manual) Basophils # (Manual) PT INR Fibrinogen dRVVT Confirm Interp Factor V Activity POC ABG pH POC ABG pCO2 POC ABG pO2 ABG pO2 ABG HCO3 ABG Base Excess ABG Hemoglobin Oxyhemoglobin Sodium 136 L Potassium Chloride Carbon Dioxide BUN 58 H Creatinine 1.3 H Glucose 103 H POC Glucose 133 H 132 H Lactic Acid Calcium Ionized Calcium Phosphorus 2.00 L D Magnesium 1.60 L Direct Bilirubin AST ALT Alkaline Phosphatase Lactate Dehydrogenase Troponin T C-Reactive Protein Total Protein Albumin Prealbumin Triglycerides Cholesterol LDL Cholesterol Direct HDL Cholesterol 25-OH Vitamin D Total PTH Intact Urine pH Urine WBC (Auto) Urine Creatinine Urine Total Protein Fluid Total Protein Vancomycin Trough Rheumatoid Factor Complement C4 Miscellaneous Test Crossmatch 02/05/17 02/05/17 02/05/17 00:01 04:00 06:42 WBC RBC Hgb Hct MCV MCH MCHC RDW Plt Count Lymph % (Auto) [place] % (Auto) Lymph # [place] # Baso # Seg Neutrophils % Seg Neuts % (Manual) Lymphocytes % (Manual) Monocytes % (Manual) Eosinophils % (Manual) Basophils % (Manual) Nucleated RBC % Seg Neutrophils # Seg Neutrophils # Man Lymphocytes # (Manual) Monocytes # (Manual) Eosinophils # (Manual) Basophils # (Manual) PT INR Fibrinogen dRVVT Confirm Interp Factor V Activity POC ABG pH POC ABG pCO2 POC ABG pO2 ABG pO2 ABG HCO3 ABG Base Excess ABG Hemoglobin Oxyhemoglobin Sodium Potassium Chloride Carbon Dioxide BUN 83 H Creatinine 1.8 H Glucose POC Glucose 119 H 110 H Lactic Acid Calcium 10.7 H Ionized Calcium Phosphorus Magnesium Direct Bilirubin AST ALT Alkaline Phosphatase Lactate Dehydrogenase Troponin T C-Reactive Protein Total Protein Albumin Prealbumin Triglycerides Cholesterol LDL Cholesterol Direct HDL Cholesterol 25-OH Vitamin D Total PTH Intact Urine pH Urine WBC (Auto) Urine Creatinine Urine Total Protein Fluid Total Protein Vancomycin Trough Rheumatoid Factor Complement C4 Miscellaneous Test Crossmatch 02/05/17 02/05/17 02/05/17 09:59 11:47 23:44 WBC RBC 2.69 L Hgb 7.2 L Hct 22.5 L MCV MCH 27 L MCHC RDW 18.6 H Plt Count Lymph % (Auto) [place] % (Auto) 9.2 H Lymph # [place] # 0.9 H Baso # Seg Neutrophils % Seg Neuts % (Manual) Lymphocytes % (Manual) Monocytes % (Manual) Eosinophils % (Manual) Basophils % (Manual) Nucleated RBC % Seg Neutrophils # Seg Neutrophils # Man Lymphocytes # (Manual) Monocytes # (Manual) Eosinophils # (Manual) Basophils # (Manual) PT INR Fibrinogen dRVVT Confirm Interp Factor V Activity POC ABG pH POC ABG pCO2 POC ABG pO2 ABG pO2 ABG HCO3 ABG Base Excess ABG Hemoglobin Oxyhemoglobin Sodium Potassium Chloride Carbon Dioxide BUN Creatinine Glucose POC Glucose 130 H 123 H Lactic Acid Calcium Ionized Calcium Phosphorus Magnesium Direct Bilirubin AST ALT Alkaline Phosphatase Lactate Dehydrogenase Troponin T C-Reactive Protein Total Protein Albumin Prealbumin Triglycerides Cholesterol LDL Cholesterol Direct HDL Cholesterol 25-OH Vitamin D Total PTH Intact Urine pH Urine WBC (Auto) Urine Creatinine Urine Total Protein Fluid Total Protein Vancomycin Trough Rheumatoid Factor Complement C4 Miscellaneous Test Crossmatch 02/06/17 02/06/17 02/06/17 04:45 05:58 12:01 WBC RBC Hgb Hct MCV MCH MCHC RDW Plt Count Lymph % (Auto) [place] % (Auto) Lymph # [place] # Baso # Seg Neutrophils % Seg Neuts % (Manual) Lymphocytes % (Manual) Monocytes % (Manual) Eosinophils % (Manual) Basophils % (Manual) Nucleated RBC % Seg Neutrophils # Seg Neutrophils # Man Lymphocytes # (Manual) Monocytes # (Manual) Eosinophils # (Manual) Basophils # (Manual) PT INR Fibrinogen dRVVT Confirm Interp Factor V Activity POC ABG pH POC ABG pCO2 POC ABG pO2 ABG pO2 ABG HCO3 ABG Base Excess ABG Hemoglobin Oxyhemoglobin Sodium Potassium Chloride Carbon Dioxide BUN 101 H Creatinine 2.0 H Glucose 102 H POC Glucose 115 H 132 H Lactic Acid Calcium 10.6 H Ionized Calcium Phosphorus Magnesium Direct Bilirubin AST ALT Alkaline Phosphatase 199 H Lactate Dehydrogenase Troponin T C-Reactive Protein Total Protein Albumin 1.4 L Prealbumin Triglycerides Cholesterol LDL Cholesterol Direct HDL Cholesterol 25-OH Vitamin D Total PTH Intact Urine pH Urine WBC (Auto) Urine Creatinine Urine Total Protein Fluid Total Protein Vancomycin Trough Rheumatoid Factor Complement C4 Miscellaneous Test Crossmatch 02/06/17 02/06/17 02/07/17 17:41 23:32 05:04 WBC RBC Hgb Hct MCV MCH MCHC RDW Plt Count Lymph % (Auto) [place] % (Auto) Lymph # [place] # Baso # Seg Neutrophils % Seg Neuts % (Manual) Lymphocytes % (Manual) Monocytes % (Manual) Eosinophils % (Manual) Basophils % (Manual) Nucleated RBC % Seg Neutrophils # Seg Neutrophils # Man Lymphocytes # (Manual) Monocytes # (Manual) Eosinophils # (Manual) Basophils # (Manual) PT INR Fibrinogen dRVVT Confirm Interp Factor V Activity POC ABG pH POC ABG pCO2 POC ABG pO2 ABG pO2 ABG HCO3 ABG Base Excess ABG Hemoglobin Oxyhemoglobin Sodium Potassium Chloride Carbon Dioxide BUN Creatinine Glucose POC Glucose 134 H 128 H 119 H Lactic Acid Calcium Ionized Calcium Phosphorus Magnesium Direct Bilirubin AST ALT Alkaline Phosphatase Lactate Dehydrogenase Troponin T C-Reactive Protein Total Protein Albumin Prealbumin Triglycerides Cholesterol LDL Cholesterol Direct HDL Cholesterol 25-OH Vitamin D Total PTH Intact Urine pH Urine WBC (Auto) Urine Creatinine Urine Total Protein Fluid Total Protein Vancomycin Trough Rheumatoid Factor Complement C4 Miscellaneous Test Crossmatch 02/07/17 02/07/17 02/07/17 06:30 11:20 17:13 WBC RBC Hgb Hct MCV MCH MCHC RDW Plt Count Lymph % (Auto) [place] % (Auto) Lymph # [place] # Baso # Seg Neutrophils % Seg Neuts % (Manual) Lymphocytes % (Manual) Monocytes % (Manual) Eosinophils % (Manual) Basophils % (Manual) Nucleated RBC % Seg Neutrophils # Seg Neutrophils # Man Lymphocytes # (Manual) Monocytes # (Manual) Eosinophils # (Manual) Basophils # (Manual) PT INR Fibrinogen dRVVT Confirm Interp Factor V Activity POC ABG pH POC ABG pCO2 POC ABG pO2 ABG pO2 ABG HCO3 ABG Base Excess ABG Hemoglobin Oxyhemoglobin Sodium Potassium 3.4 L Chloride Carbon Dioxide BUN 69 H Creatinine 1.5 H Glucose 105 H POC Glucose 117 H 110 H Lactic Acid Calcium Ionized Calcium Phosphorus Magnesium 1.50 L Direct Bilirubin AST ALT Alkaline Phosphatase Lactate Dehydrogenase Troponin T C-Reactive Protein Total Protein Albumin Prealbumin Triglycerides Cholesterol LDL Cholesterol Direct HDL Cholesterol 25-OH Vitamin D Total PTH Intact Urine pH Urine WBC (Auto) Urine Creatinine Urine Total Protein Fluid Total Protein Vancomycin Trough Rheumatoid Factor Complement C4 Miscellaneous Test Crossmatch 02/07/17 02/08/17 02/08/17 20:47 04:00 11:43 WBC RBC Hgb Hct MCV MCH MCHC RDW Plt Count Lymph % (Auto) [place] % (Auto) Lymph # [place] # Baso # Seg Neutrophils % Seg Neuts % (Manual) Lymphocytes % (Manual) Monocytes % (Manual) Eosinophils % (Manual) Basophils % (Manual) Nucleated RBC % Seg Neutrophils # Seg Neutrophils # Man Lymphocytes # (Manual) Monocytes # (Manual) Eosinophils # (Manual) Basophils # (Manual) PT INR Fibrinogen dRVVT Confirm Interp Factor V Activity POC ABG pH POC ABG pCO2 POC ABG pO2 ABG pO2 ABG HCO3 ABG Base Excess ABG Hemoglobin Oxyhemoglobin Sodium Potassium Chloride Carbon Dioxide BUN 86 H Creatinine 1.7 H Glucose POC Glucose 115 H 122 H Lactic Acid Calcium Ionized Calcium Phosphorus Magnesium 1.60 L Direct Bilirubin AST ALT Alkaline Phosphatase Lactate Dehydrogenase Troponin T C-Reactive Protein Total Protein Albumin Prealbumin Triglycerides Cholesterol LDL Cholesterol Direct HDL Cholesterol 25-OH Vitamin D Total PTH Intact Urine pH Urine WBC (Auto) Urine Creatinine Urine Total Protein Fluid Total Protein Vancomycin Trough Rheumatoid Factor Complement C4 Miscellaneous Test Crossmatch 02/08/17 02/09/17 02/09/17 17:36 05:44 11:30 WBC RBC Hgb Hct MCV MCH MCHC RDW Plt Count Lymph % (Auto) [place] % (Auto) Lymph # [place] # Baso # Seg Neutrophils % Seg Neuts % (Manual) Lymphocytes % (Manual) Monocytes % (Manual) Eosinophils % (Manual) Basophils % (Manual) Nucleated RBC % Seg Neutrophils # Seg Neutrophils # Man Lymphocytes # (Manual) Monocytes # (Manual) Eosinophils # (Manual) Basophils # (Manual) PT INR Fibrinogen dRVVT Confirm Interp Factor V Activity POC ABG pH POC ABG pCO2 POC ABG pO2 ABG pO2 ABG HCO3 ABG Base Excess ABG Hemoglobin Oxyhemoglobin Sodium Potassium Chloride Carbon Dioxide BUN Creatinine Glucose POC Glucose 125 H 117 H 120 H Lactic Acid Calcium Ionized Calcium Phosphorus Magnesium Direct Bilirubin AST ALT Alkaline Phosphatase Lactate Dehydrogenase Troponin T C-Reactive Protein Total Protein Albumin Prealbumin Triglycerides Cholesterol LDL Cholesterol Direct HDL Cholesterol 25-OH Vitamin D Total PTH Intact Urine pH Urine WBC (Auto) Urine Creatinine Urine Total Protein Fluid Total Protein Vancomycin Trough Rheumatoid Factor Complement C4 Miscellaneous Test Crossmatch 02/09/17 02/10/17 02/10/17 23:45 05:45 05:50 WBC RBC Hgb Hct MCV MCH MCHC RDW Plt Count Lymph % (Auto) [place] % (Auto) Lymph # [place] # Baso # Seg Neutrophils % Seg Neuts % (Manual) Lymphocytes % (Manual) Monocytes % (Manual) Eosinophils % (Manual) Basophils % (Manual) Nucleated RBC % Seg Neutrophils # Seg Neutrophils # Man Lymphocytes # (Manual) Monocytes # (Manual) Eosinophils # (Manual) Basophils # (Manual) PT INR Fibrinogen dRVVT Confirm Interp Factor V Activity POC ABG pH POC ABG pCO2 POC ABG pO2 ABG pO2 ABG HCO3 ABG Base Excess ABG Hemoglobin Oxyhemoglobin Sodium Potassium Chloride Carbon Dioxide BUN 85 H Creatinine 1.8 H Glucose 109 H POC Glucose 114 H 189 H Lactic Acid Calcium Ionized Calcium Phosphorus Magnesium 2.50 H Direct Bilirubin AST ALT Alkaline Phosphatase Lactate Dehydrogenase Troponin T C-Reactive Protein Total Protein Albumin Prealbumin Triglycerides Cholesterol LDL Cholesterol Direct HDL Cholesterol 25-OH Vitamin D Total PTH Intact Urine pH Urine WBC (Auto) Urine Creatinine Urine Total Protein Fluid Total Protein Vancomycin Trough Rheumatoid Factor Complement C4 Miscellaneous Test Crossmatch 02/10/17 02/10/17 02/10/17 05:51 11:55 17:42 WBC RBC Hgb Hct MCV MCH MCHC RDW Plt Count Lymph % (Auto) [place] % (Auto) Lymph # [place] # Baso # Seg Neutrophils % Seg Neuts % (Manual) Lymphocytes % (Manual) Monocytes % (Manual) Eosinophils % (Manual) Basophils % (Manual) Nucleated RBC % Seg Neutrophils # Seg Neutrophils # Man Lymphocytes # (Manual) Monocytes # (Manual) Eosinophils # (Manual) Basophils # (Manual) PT INR Fibrinogen dRVVT Confirm Interp Factor V Activity POC ABG pH POC ABG pCO2 POC ABG pO2 ABG pO2 ABG HCO3 ABG Base Excess ABG Hemoglobin Oxyhemoglobin Sodium Potassium Chloride Carbon Dioxide BUN Creatinine Glucose POC Glucose 106 H 146 H 132 H Lactic Acid Calcium Ionized Calcium Phosphorus Magnesium Direct Bilirubin AST ALT Alkaline Phosphatase Lactate Dehydrogenase Troponin T C-Reactive Protein Total Protein Albumin Prealbumin Triglycerides Cholesterol LDL Cholesterol Direct HDL Cholesterol 25-OH Vitamin D Total PTH Intact Urine pH Urine WBC (Auto) Urine Creatinine Urine Total Protein Fluid Total Protein Vancomycin Trough Rheumatoid Factor Complement C4 Miscellaneous Test Crossmatch 02/10/17 02/11/17 02/11/17 23:43 04:08 05:34 WBC RBC Hgb Hct MCV MCH MCHC RDW Plt Count Lymph % (Auto) [place] % (Auto) Lymph # [place] # Baso # Seg Neutrophils % Seg Neuts % (Manual) Lymphocytes % (Manual) Monocytes % (Manual) Eosinophils % (Manual) Basophils % (Manual) Nucleated RBC % Seg Neutrophils # Seg Neutrophils # Man Lymphocytes # (Manual) Monocytes # (Manual) Eosinophils # (Manual) Basophils # (Manual) PT INR Fibrinogen dRVVT Confirm Interp Factor V Activity POC ABG pH POC ABG pCO2 POC ABG pO2 ABG pO2 ABG HCO3 ABG Base Excess ABG Hemoglobin Oxyhemoglobin Sodium 136 L Potassium Chloride Carbon Dioxide BUN 65 H Creatinine 1.7 H Glucose 105 H POC Glucose 130 H 113 H Lactic Acid Calcium Ionized Calcium Phosphorus Magnesium Direct Bilirubin AST ALT Alkaline Phosphatase Lactate Dehydrogenase Troponin T C-Reactive Protein Total Protein Albumin Prealbumin Triglycerides Cholesterol LDL Cholesterol Direct HDL Cholesterol 25-OH Vitamin D Total PTH Intact Urine pH Urine WBC (Auto) Urine Creatinine Urine Total Protein Fluid Total Protein Vancomycin Trough Rheumatoid Factor Complement C4 Miscellaneous Test Crossmatch 02/11/17 02/11/17 02/12/17 11:56 23:18 06:19 WBC RBC Hgb Hct MCV MCH MCHC RDW Plt Count Lymph % (Auto) [place] % (Auto) Lymph # [place] # Baso # Seg Neutrophils % Seg Neuts % (Manual) Lymphocytes % (Manual) Monocytes % (Manual) Eosinophils % (Manual) Basophils % (Manual) Nucleated RBC % Seg Neutrophils # Seg Neutrophils # Man Lymphocytes # (Manual) Monocytes # (Manual) Eosinophils # (Manual) Basophils # (Manual) PT INR Fibrinogen dRVVT Confirm Interp Factor V Activity POC ABG pH POC ABG pCO2 POC ABG pO2 ABG pO2 ABG HCO3 ABG Base Excess ABG Hemoglobin Oxyhemoglobin Sodium 136 L Potassium Chloride 97.1 L Carbon Dioxide BUN 93 H Creatinine 2.4 H Glucose POC Glucose 126 H 119 H Lactic Acid Calcium 11.0 H Ionized Calcium Phosphorus Magnesium Direct Bilirubin AST ALT Alkaline Phosphatase Lactate Dehydrogenase Troponin T C-Reactive Protein Total Protein Albumin Prealbumin Triglycerides Cholesterol LDL Cholesterol Direct HDL Cholesterol 25-OH Vitamin D Total PTH Intact Urine pH Urine WBC (Auto) Urine Creatinine Urine Total Protein Fluid Total Protein Vancomycin Trough Rheumatoid Factor Complement C4 Miscellaneous Test Crossmatch 02/12/17 02/12/17 02/12/17 08:00 10:25 11:42 WBC 15.4 H RBC 2.63 L Hgb 6.9 L Hct 22.6 L MCV MCH 26 L MCHC RDW 20.5 H Plt Count Lymph % (Auto) [place] % (Auto) Lymph # [place] # Baso # Seg Neutrophils % Seg Neuts % (Manual) Lymphocytes % (Manual) Monocytes % (Manual) Eosinophils % (Manual) Basophils % (Manual) Nucleated RBC % Seg Neutrophils # Seg Neutrophils # Man Lymphocytes # (Manual) Monocytes # (Manual) Eosinophils # (Manual) Basophils # (Manual) PT INR Fibrinogen dRVVT Confirm Interp Factor V Activity POC ABG pH POC ABG pCO2 POC ABG pO2 ABG pO2 ABG HCO3 ABG Base Excess ABG Hemoglobin Oxyhemoglobin Sodium Potassium Chloride Carbon Dioxide BUN Creatinine Glucose POC Glucose 142 H Lactic Acid Calcium Ionized Calcium Phosphorus Magnesium Direct Bilirubin AST ALT Alkaline Phosphatase Lactate Dehydrogenase Troponin T C-Reactive Protein Total Protein Albumin Prealbumin Triglycerides Cholesterol LDL Cholesterol Direct HDL Cholesterol 25-OH Vitamin D Total PTH Intact Urine pH Urine WBC (Auto) Urine Creatinine Urine Total Protein Fluid Total Protein Vancomycin Trough Rheumatoid Factor Complement C4 Miscellaneous Test Crossmatch See Detail 02/12/17 02/13/17 02/13/17 18:04 00:04 05:00 WBC RBC Hgb Hct MCV MCH MCHC RDW Plt Count Lymph % (Auto) [place] % (Auto) Lymph # [place] # Baso # Seg Neutrophils % Seg Neuts % (Manual) Lymphocytes % (Manual) Monocytes % (Manual) Eosinophils % (Manual) Basophils % (Manual) Nucleated RBC % Seg Neutrophils # Seg Neutrophils # Man Lymphocytes # (Manual) Monocytes # (Manual) Eosinophils # (Manual) Basophils # (Manual) PT INR Fibrinogen dRVVT Confirm Interp Factor V Activity POC ABG pH POC ABG pCO2 POC ABG pO2 ABG pO2 ABG HCO3 ABG Base Excess ABG Hemoglobin Oxyhemoglobin Sodium 134 L Potassium Chloride 96.1 L Carbon Dioxide 20 L BUN 125 H Creatinine 3.0 H Glucose 111 H POC Glucose 135 H 109 H Lactic Acid Calcium 11.3 H Ionized Calcium Phosphorus Magnesium Direct Bilirubin AST ALT Alkaline Phosphatase Lactate Dehydrogenase Troponin T C-Reactive Protein Total Protein Albumin Prealbumin Triglycerides Cholesterol LDL Cholesterol Direct HDL Cholesterol 25-OH Vitamin D Total PTH Intact Urine pH Urine WBC (Auto) Urine Creatinine Urine Total Protein Fluid Total Protein Vancomycin Trough Rheumatoid Factor Complement C4 Miscellaneous Test Crossmatch 02/13/17 02/13/17 02/13/17 05:00 05:28 12:03 WBC 11.9 H RBC 2.92 L Hgb 7.8 L Hct 25.2 L MCV MCH 27 L MCHC RDW 19.3 H Plt Count Lymph % (Auto) [place] % (Auto) Lymph # [place] # Baso # Seg Neutrophils % Seg Neuts % (Manual) Lymphocytes % (Manual) Monocytes % (Manual) Eosinophils % (Manual) Basophils % (Manual) Nucleated RBC % Seg Neutrophils # Seg Neutrophils # Man Lymphocytes # (Manual) Monocytes # (Manual) Eosinophils # (Manual) Basophils # (Manual) PT INR Fibrinogen dRVVT Confirm Interp Factor V Activity POC ABG pH POC ABG pCO2 POC ABG pO2 ABG pO2 ABG HCO3 ABG Base Excess ABG Hemoglobin Oxyhemoglobin Sodium Potassium Chloride Carbon Dioxide BUN Creatinine Glucose POC Glucose 124 H 160 H Lactic Acid Calcium Ionized Calcium Phosphorus Magnesium Direct Bilirubin AST ALT Alkaline Phosphatase Lactate Dehydrogenase Troponin T C-Reactive Protein Total Protein Albumin Prealbumin Triglycerides Cholesterol LDL Cholesterol Direct HDL Cholesterol 25-OH Vitamin D Total PTH Intact Urine pH Urine WBC (Auto) Urine Creatinine Urine Total Protein Fluid Total Protein Vancomycin Trough Rheumatoid Factor Complement C4 Miscellaneous Test Crossmatch 02/13/17 02/14/17 02/14/17 18:09 06:16 08:08 WBC 15.2 H RBC 2.97 L Hgb 8.1 L Hct 26.3 L MCV MCH MCHC RDW 19.3 H Plt Count Lymph % (Auto) [place] % (Auto) Lymph # [place] # Baso # Seg Neutrophils % Seg Neuts % (Manual) Lymphocytes % (Manual) Monocytes % (Manual) Eosinophils % (Manual) Basophils % (Manual) Nucleated RBC % Seg Neutrophils # Seg Neutrophils # Man Lymphocytes # (Manual) Monocytes # (Manual) Eosinophils # (Manual) Basophils # (Manual) PT INR Fibrinogen dRVVT Confirm Interp Factor V Activity POC ABG pH POC ABG pCO2 POC ABG pO2 ABG pO2 ABG HCO3 ABG Base Excess ABG Hemoglobin Oxyhemoglobin Sodium Potassium Chloride Carbon Dioxide BUN Creatinine Glucose POC Glucose 110 H 112 H Lactic Acid Calcium Ionized Calcium Phosphorus Magnesium Direct Bilirubin AST ALT Alkaline Phosphatase Lactate Dehydrogenase Troponin T C-Reactive Protein Total Protein Albumin Prealbumin Triglycerides Cholesterol LDL Cholesterol Direct HDL Cholesterol 25-OH Vitamin D Total PTH Intact Urine pH Urine WBC (Auto) Urine Creatinine Urine Total Protein Fluid Total Protein Vancomycin Trough Rheumatoid Factor Complement C4 Miscellaneous Test Crossmatch 02/14/17 02/14/17 02/15/17 08:08 17:41 04:15 WBC RBC Hgb Hct MCV MCH MCHC RDW Plt Count Lymph % (Auto) [place] % (Auto) Lymph # [place] # Baso # Seg Neutrophils % Seg Neuts % (Manual) Lymphocytes % (Manual) Monocytes % (Manual) Eosinophils % (Manual) Basophils % (Manual) Nucleated RBC % Seg Neutrophils # Seg Neutrophils # Man Lymphocytes # (Manual) Monocytes # (Manual) Eosinophils # (Manual) Basophils # (Manual) PT INR Fibrinogen dRVVT Confirm Interp Factor V Activity POC ABG pH POC ABG pCO2 POC ABG pO2 ABG pO2 ABG HCO3 ABG Base Excess ABG Hemoglobin Oxyhemoglobin Sodium Potassium Chloride Carbon Dioxide 18 L 21 L BUN 79 H 113 H Creatinine 2.1 H 2.8 H Glucose POC Glucose 118 H Lactic Acid Calcium 10.7 H Ionized Calcium Phosphorus 1.70 L D Magnesium 1.60 L Direct Bilirubin AST ALT Alkaline Phosphatase Lactate Dehydrogenase Troponin T C-Reactive Protein Total Protein Albumin Prealbumin Triglycerides Cholesterol LDL Cholesterol Direct HDL Cholesterol 25-OH Vitamin D Total PTH Intact Urine pH Urine WBC (Auto) Urine Creatinine Urine Total Protein Fluid Total Protein Vancomycin Trough Rheumatoid Factor Complement C4 Miscellaneous Test Crossmatch 02/15/17 02/15/17 02/15/17 06:06 11:31 17:52 WBC RBC Hgb Hct MCV MCH MCHC RDW Plt Count Lymph % (Auto) [place] % (Auto) Lymph # [place] # Baso # Seg Neutrophils % Seg Neuts % (Manual) Lymphocytes % (Manual) Monocytes % (Manual) Eosinophils % (Manual) Basophils % (Manual) Nucleated RBC % Seg Neutrophils # Seg Neutrophils # Man Lymphocytes # (Manual) Monocytes # (Manual) Eosinophils # (Manual) Basophils # (Manual) PT INR Fibrinogen dRVVT Confirm Interp Factor V Activity POC ABG pH POC ABG pCO2 POC ABG pO2 ABG pO2 ABG HCO3 ABG Base Excess ABG Hemoglobin Oxyhemoglobin Sodium Potassium Chloride Carbon Dioxide BUN Creatinine Glucose POC Glucose 115 H 129 H 201 H Lactic Acid Calcium Ionized Calcium Phosphorus Magnesium Direct Bilirubin AST ALT Alkaline Phosphatase Lactate Dehydrogenase Troponin T C-Reactive Protein Total Protein Albumin Prealbumin Triglycerides Cholesterol LDL Cholesterol Direct HDL Cholesterol 25-OH Vitamin D Total PTH Intact Urine pH Urine WBC (Auto) Urine Creatinine Urine Total Protein Fluid Total Protein Vancomycin Trough Rheumatoid Factor Complement C4 Miscellaneous Test Crossmatch 02/15/17 02/15/17 02/15/17 19:08 19:08 19:08 WBC RBC Hgb Hct MCV MCH MCHC RDW Plt Count Lymph % (Auto) [place] % (Auto) Lymph # [place] # Baso # Seg Neutrophils % Seg Neuts % (Manual) Lymphocytes % (Manual) Monocytes % (Manual) Eosinophils % (Manual) Basophils % (Manual) Nucleated RBC % Seg Neutrophils # Seg Neutrophils # Man Lymphocytes # (Manual) Monocytes # (Manual) Eosinophils # (Manual) Basophils # (Manual) PT INR Fibrinogen dRVVT Confirm Interp Factor V Activity POC ABG pH POC ABG pCO2 POC ABG pO2 ABG pO2 ABG HCO3 ABG Base Excess ABG Hemoglobin Oxyhemoglobin Sodium Potassium Chloride Carbon Dioxide BUN Creatinine Glucose POC Glucose Lactic Acid Calcium Ionized Calcium 6.0 H Phosphorus Magnesium Direct Bilirubin AST ALT Alkaline Phosphatase Lactate Dehydrogenase Troponin T C-Reactive Protein Total Protein Albumin Prealbumin Triglycerides Cholesterol LDL Cholesterol Direct HDL Cholesterol 25-OH Vitamin D Total 13 L PTH Intact 10.88 L Urine pH Urine WBC (Auto) Urine Creatinine Urine Total Protein Fluid Total Protein Vancomycin Trough Rheumatoid Factor Complement C4 Miscellaneous Test Crossmatch 02/16/17 02/16/17 02/16/17 05:12 06:00 12:39 WBC RBC Hgb Hct MCV MCH MCHC RDW Plt Count Lymph % (Auto) [place] % (Auto) Lymph # [place] # Baso # Seg Neutrophils % Seg Neuts % (Manual) Lymphocytes % (Manual) Monocytes % (Manual) Eosinophils % (Manual) Basophils % (Manual) Nucleated RBC % Seg Neutrophils # Seg Neutrophils # Man Lymphocytes # (Manual) Monocytes # (Manual) Eosinophils # (Manual) Basophils # (Manual) PT INR Fibrinogen dRVVT Confirm Interp Factor V Activity POC ABG pH POC ABG pCO2 POC ABG pO2 ABG pO2 ABG HCO3 ABG Base Excess ABG Hemoglobin Oxyhemoglobin Sodium Potassium Chloride Carbon Dioxide BUN 74 H Creatinine 1.7 H Glucose 102 H POC Glucose 125 H 109 H Lactic Acid Calcium Ionized Calcium Phosphorus 2.10 L D Magnesium Direct Bilirubin AST ALT Alkaline Phosphatase Lactate Dehydrogenase Troponin T C-Reactive Protein Total Protein Albumin Prealbumin Triglycerides Cholesterol LDL Cholesterol Direct HDL Cholesterol 25-OH Vitamin D Total PTH Intact Urine pH Urine WBC (Auto) Urine Creatinine Urine Total Protein Fluid Total Protein Vancomycin Trough Rheumatoid Factor Complement C4 Miscellaneous Test Crossmatch 02/16/17 02/16/17 02/17/17 17:31 23:57 05:30 WBC RBC Hgb Hct MCV MCH MCHC RDW Plt Count Lymph % (Auto) [place] % (Auto) Lymph # [place] # Baso # Seg Neutrophils % Seg Neuts % (Manual) Lymphocytes % (Manual) Monocytes % (Manual) Eosinophils % (Manual) Basophils % (Manual) Nucleated RBC % Seg Neutrophils # Seg Neutrophils # Man Lymphocytes # (Manual) Monocytes # (Manual) Eosinophils # (Manual) Basophils # (Manual) PT INR Fibrinogen dRVVT Confirm Interp Factor V Activity POC ABG pH POC ABG pCO2 POC ABG pO2 ABG pO2 ABG HCO3 ABG Base Excess ABG Hemoglobin Oxyhemoglobin Sodium Potassium Chloride Carbon Dioxide BUN Creatinine Glucose POC Glucose 106 H 127 H 122 H Lactic Acid Calcium Ionized Calcium Phosphorus Magnesium Direct Bilirubin AST ALT Alkaline Phosphatase Lactate Dehydrogenase Troponin T C-Reactive Protein Total Protein Albumin Prealbumin Triglycerides Cholesterol LDL Cholesterol Direct HDL Cholesterol 25-OH Vitamin D Total PTH Intact Urine pH Urine WBC (Auto) Urine Creatinine Urine Total Protein Fluid Total Protein Vancomycin Trough Rheumatoid Factor Complement C4 Miscellaneous Test Crossmatch 02/17/17 02/17/17 02/17/17 06:00 12:17 17:57 WBC RBC Hgb Hct MCV MCH MCHC RDW Plt Count Lymph % (Auto) [place] % (Auto) Lymph # [place] # Baso # Seg Neutrophils % Seg Neuts % (Manual) Lymphocytes % (Manual) Monocytes % (Manual) Eosinophils % (Manual) Basophils % (Manual) Nucleated RBC % Seg Neutrophils # Seg Neutrophils # Man Lymphocytes # (Manual) Monocytes # (Manual) Eosinophils # (Manual) Basophils # (Manual) PT INR Fibrinogen dRVVT Confirm Interp Factor V Activity POC ABG pH POC ABG pCO2 POC ABG pO2 ABG pO2 ABG HCO3 ABG Base Excess ABG Hemoglobin Oxyhemoglobin Sodium Potassium Chloride Carbon Dioxide BUN 94 H Creatinine 2.3 H Glucose 106 H POC Glucose 173 H 140 H Lactic Acid Calcium Ionized Calcium Phosphorus Magnesium Direct Bilirubin AST ALT Alkaline Phosphatase Lactate Dehydrogenase Troponin T C-Reactive Protein Total Protein Albumin Prealbumin Triglycerides Cholesterol LDL Cholesterol Direct HDL Cholesterol 25-OH Vitamin D Total PTH Intact Urine pH Urine WBC (Auto) Urine Creatinine Urine Total Protein Fluid Total Protein Vancomycin Trough Rheumatoid Factor Complement C4 Miscellaneous Test Crossmatch 02/18/17 02/18/17 02/18/17 00:20 05:30 06:14 WBC RBC Hgb Hct MCV MCH MCHC RDW Plt Count Lymph % (Auto) [place] % (Auto) Lymph # [place] # Baso # Seg Neutrophils % Seg Neuts % (Manual) Lymphocytes % (Manual) Monocytes % (Manual) Eosinophils % (Manual) Basophils % (Manual) Nucleated RBC % Seg Neutrophils # Seg Neutrophils # Man Lymphocytes # (Manual) Monocytes # (Manual) Eosinophils # (Manual) Basophils # (Manual) PT INR Fibrinogen dRVVT Confirm Interp Factor V Activity POC ABG pH POC ABG pCO2 POC ABG pO2 ABG pO2 ABG HCO3 ABG Base Excess ABG Hemoglobin Oxyhemoglobin Sodium 136 L Potassium Chloride 97.5 L Carbon Dioxide BUN 73 H Creatinine 1.9 H Glucose POC Glucose 132 H 106 H Lactic Acid Calcium Ionized Calcium Phosphorus Magnesium Direct Bilirubin AST ALT Alkaline Phosphatase Lactate Dehydrogenase Troponin T C-Reactive Protein Total Protein Albumin Prealbumin Triglycerides Cholesterol LDL Cholesterol Direct HDL Cholesterol 25-OH Vitamin D Total PTH Intact Urine pH Urine WBC (Auto) Urine Creatinine Urine Total Protein Fluid Total Protein Vancomycin Trough Rheumatoid Factor Complement C4 Miscellaneous Test Crossmatch 02/18/17 02/18/17 02/18/17 09:51 11:32 17:59 WBC 13.1 H RBC 2.77 L Hgb 7.6 L Hct 23.9 L MCV MCH MCHC RDW 19.0 H Plt Count Lymph % (Auto) [place] % (Auto) 11.1 H Lymph # [place] # 1.5 H Baso # Seg Neutrophils % Seg Neuts % (Manual) Lymphocytes % (Manual) Monocytes % (Manual) Eosinophils % (Manual) Basophils % (Manual) Nucleated RBC % Seg Neutrophils # 9.1 H Seg Neutrophils # Man Lymphocytes # (Manual) Monocytes # (Manual) Eosinophils # (Manual) Basophils # (Manual) PT INR Fibrinogen dRVVT Confirm Interp Factor V Activity POC ABG pH POC ABG pCO2 POC ABG pO2 ABG pO2 ABG HCO3 ABG Base Excess ABG Hemoglobin Oxyhemoglobin Sodium Potassium Chloride Carbon Dioxide BUN Creatinine Glucose POC Glucose 123 H 119 H Lactic Acid Calcium Ionized Calcium Phosphorus Magnesium Direct Bilirubin AST ALT Alkaline Phosphatase Lactate Dehydrogenase Troponin T C-Reactive Protein Total Protein Albumin Prealbumin Triglycerides Cholesterol LDL Cholesterol Direct HDL Cholesterol 25-OH Vitamin D Total PTH Intact Urine pH Urine WBC (Auto) Urine Creatinine Urine Total Protein Fluid Total Protein Vancomycin Trough Rheumatoid Factor Complement C4 Miscellaneous Test Crossmatch 02/18/17 02/19/17 02/19/17 23:47 05:36 09:45 WBC RBC Hgb Hct MCV MCH 27 L MCHC RDW 19.2 H Plt Count Lymph % (Auto) [place] % (Auto) Lymph # [place] # Baso # Seg Neutrophils % Seg Neuts % (Manual) Lymphocytes % (Manual) Monocytes % (Manual) Eosinophils % (Manual) Basophils % (Manual) Nucleated RBC % Seg Neutrophils # Seg Neutrophils # Man Lymphocytes # (Manual) Monocytes # (Manual) Eosinophils # (Manual) Basophils # (Manual) PT INR Fibrinogen dRVVT Confirm Interp Factor V Activity POC ABG pH POC ABG pCO2 POC ABG pO2 ABG pO2 ABG HCO3 ABG Base Excess ABG Hemoglobin Oxyhemoglobin Sodium Potassium Chloride Carbon Dioxide BUN Creatinine Glucose POC Glucose 110 H 121 H Lactic Acid Calcium Ionized Calcium Phosphorus Magnesium Direct Bilirubin AST ALT Alkaline Phosphatase Lactate Dehydrogenase Troponin T C-Reactive Protein Total Protein Albumin Prealbumin Triglycerides Cholesterol LDL Cholesterol Direct HDL Cholesterol 25-OH Vitamin D Total PTH Intact Urine pH Urine WBC (Auto) Urine Creatinine Urine Total Protein Fluid Total Protein Vancomycin Trough Rheumatoid Factor Complement C4 Miscellaneous Test Crossmatch 02/19/17 02/20/17 02/20/17 09:45 00:10 06:15 WBC RBC Hgb Hct MCV MCH MCHC RDW Plt Count Lymph % (Auto) [place] % (Auto) Lymph # [place] # Baso # Seg Neutrophils % Seg Neuts % (Manual) Lymphocytes % (Manual) Monocytes % (Manual) Eosinophils % (Manual) Basophils % (Manual) Nucleated RBC % Seg Neutrophils # Seg Neutrophils # Man Lymphocytes # (Manual) Monocytes # (Manual) Eosinophils # (Manual) Basophils # (Manual) PT INR Fibrinogen dRVVT Confirm Interp Factor V Activity POC ABG pH POC ABG pCO2 POC ABG pO2 ABG pO2 ABG HCO3 ABG Base Excess ABG Hemoglobin Oxyhemoglobin Sodium 136 L Potassium 5.1 H Chloride 97.6 L Carbon Dioxide 20 L 18 L BUN 110 H 135 H Creatinine 2.6 H 3.2 H Glucose 106 H 110 H POC Glucose 117 H Lactic Acid Calcium Ionized Calcium Phosphorus 4.70 H D 5.60 H Magnesium Direct Bilirubin AST ALT Alkaline Phosphatase Lactate Dehydrogenase Troponin T C-Reactive Protein Total Protein Albumin Prealbumin Triglycerides Cholesterol LDL Cholesterol Direct HDL Cholesterol 25-OH Vitamin D Total PTH Intact Urine pH Urine WBC (Auto) Urine Creatinine Urine Total Protein Fluid Total Protein Vancomycin Trough Rheumatoid Factor Complement C4 Miscellaneous Test Crossmatch Allied health notes reviewed: RT (Has been on PS 04/07, no desaturations today)
[2017-02-20] MEDS: DIFLUCAN 200 MG/100 ML BAG IV SCH (14:00)
[2017-02-20] MEDS: HEPARIN IV PRN (14:01)
--- NOTE | 2017-02-20 16:38 | Progress Note ---
Assessment and Plan Assessment and plan: Patient is 46-year-old woman with a history of hypertension, diabetes, asthma, hyperlipidemia, chronic kidney disease and anxiety , who was brought in by family because, she couldn't get her words out, her face was also twisted, she was admitted for acute CVA and accelerated hypertension, she had a hx of poor adherence with her medications, and uncontrolled htn. Patient's SBP on admission was noted be greater than 260. TPA was started but this was discontinued after 5 minutes because her blood pressure became uncontrolled. The TPA was not initiated again because the patient was outside the TPA window. Fever obtain UA, UC, blood cx and CXR if continues to spike fever, will consult ID Status post cardiac arrest , 11/21/16 on Mechanical ventilation >96 hrs, >3 months Vent Dependant Respirtory failure secodnary to Anoxic Brain injury S/P Tracheostomy Severe Sepsis with septic shock Surgical wound infection/gram-negative sepsis/candidemia/peritonitis - On TPN ESRD - on HD - Cr 1.9 today Acute CVA with infarct - Neurology input appreciated - CT shows continued evolution of left MCA infarct with slight mass effect and edema, and there is no hemorrhage - PRINCE showed hyperdynamic with ef of 75%, neither clot nor septal defect seen - MRA Brain shows near complete occlusion of M2 and M3 of the left MCA - Repeat CT scan done on 09/11, shows stable findings - carotid doppler negative - Echo shows preserved systolic function but does show some left ventricular diastolic dysfunction - continue asa and statin Persistent vegetative state - This patient's needs placement at SNF - She was denied for LTACH Nosocomial acquired aspiration pneumonia/sepsis/UTI/PERITONITIS - Has been on multiple antibiotics, expect recurrent sepsis due to now known Bowel perforation not amendable to surgery due to clinical condition A. fib with RVR -On amio drip, cannot change to PO due to persistent nausea and vomiting Diabetes type 2. -Continue sliding-scale regular insulin and Accu-Cheks. Hyperlipidemia. Continue statin Severe Protein calorie Malnutrition/Adult failure to thrive - TPN Anemia requiring multiple transfusions/acute blood loss - currently stable - Check AM labs - Will transfuse if it is below 7 Sacral decubitus ulcer - Status post debridement -Wound vac in place Disposition. Very poor prognosis. DNR - The high probability of a clinically significant, sudden or life threatening deterioration of the [neurologic, CV] system(s) required my full and direct attention, intervention and personal management. The aggregate critical care time was [35] minutes. This time is in addition to time spent performing reported procedures but includes the following: [x] Data Review and interpretation [x] Patient assessment and monitoring of vital signs [x] Documentation [x] Medication orders and management History Interval history: patient seen and examined, remains unresponsive on the ventilator. febrile overnight, no vomiting was tachypneic and tachycardic overnight Hospitalist Physical - Physical exam Narrative exam: GEN: Ill appearing, trach, staring into space,, non purposeful movement NECK: SUPPLE, trach in place, ngt in place and to suction. CVS:Irregular Irregular with LUNGS/CHEST: NORMAL CHEST EXPANSION B, GOOD AIR ENTRY B, tachypena ABD: SOFT, no grimise on abdominal palpation, Ostomy bags at two side by side fistula site. GBS, NO REBOUND OR GUARDING, peg tube in place EXT/SKIN: NO SIGNIFICANT EDEMA BUT WITH UNSTAGEABLE SACRAL DECUB, wound vac inplace MSK: +spontaneous non purposeful movement NEURO: on a ventilator and unresponsive despite being off sedation PSY: Comatose, - Constitutional Vitals: Temp Pulse Resp BP Pulse Ox 98.6 F 114 H 22 120/86 97 02/20/17 14:58 02/20/17 15:40 02/20/17 14:58 02/20/17 15:40 02/20/17 15:40 General appearance: Present: no acute distress, well-nourished Results - Labs CBC & Chem 7: 02/19/17 09:45 02/20/17 06:15 Labs: Laboratory Last Values WBC 7.7 K/mm3 (4.5-11.0) 02/19/17 09:45 RBC 4.69 M/mm3 (3.65-5.03) 02/19/17 09:45 Hgb 12.7 gm/dl (10.1-14.3) D 02/19/17 09:45 Hct 40.2 % (30.3-42.9) D 02/19/17 09:45 MCV 86 fl (79-97) 02/19/17 09:45 MCH 27 pg (28-32) L 02/19/17 09:45 MCHC 32 % (30-34) 02/19/17 09:45 RDW 19.2 % (13.2-15.2) H 02/19/17 09:45 Plt Count 180 K/mm3 (140-440) 02/19/17 09:45 Lymph % (Auto) 18.5 % (13.4-35.0) 02/18/17 09:51 [place] % (Auto) 11.1 % (0.0-7.3) H 02/18/17 09:51 Eos % (Auto) 0.7 % (0.0-4.3) 02/18/17 09:51 Baso % (Auto) 0.3 % (0.0-1.8) 02/18/17 09:51 Lymph # 2.4 K/mm3 (1.2-5.4) 02/18/17 09:51 [place] # 1.5 K/mm3 (0.0-0.8) H 02/18/17 09:51 Eos # 0.1 K/mm3 (0.0-0.4) 02/18/17 09:51 Baso # 0.0 K/mm3 (0.0-0.1) 02/18/17 09:51 Add Manual Diff Complete 12/19/16 05:02 Total Counted 100 12/19/16 05:02 Seg Neutrophils % 69.4 % (40.0-70.0) 02/18/17 09:51 Seg Neuts % (Manual) 64.0 % (40.0-70.0) 12/19/16 05:02 Band Neutrophils % 15.0 % 12/19/16 05:02 Lymphocytes % (Manual) 13.0 % (13.4-35.0) L 12/19/16 05:02 Reactive Lymphs % (Man) 0 % 12/19/16 05:02 Monocytes % (Manual) 7.0 % (0.0-7.3) 12/19/16 05:02 Eosinophils % (Manual) 0 % (0.0-4.3) 12/19/16 05:02 Basophils % (Manual) 1.0 % (0.0-1.8) 12/19/16 05:02 Metamyelocytes % 0 % 12/19/16 05:02 Myelocytes % 0 % 12/19/16 05:02 Promyelocytes % 0 % 12/19/16 05:02 Blast Cells % 0 % 12/19/16 05:02 Nucleated RBC % 1.0 % (0.0-0.9) H 12/19/16 05:02 Seg Neutrophils # 9.1 K/mm3 (1.8-7.7) H 02/18/17 09:51 Seg Neutrophils # Man 12.9 K/mm3 (1.8-7.7) H 12/19/16 05:02 Band Neutrophils # 3.0 K/mm3 12/19/16 05:02 Lymphocytes # (Manual) 2.6 K/mm3 (1.2-5.4) 12/19/16 05:02 Abs React Lymphs (Man) 0.0 K/mm3 12/19/16 05:02 Monocytes # (Manual) 1.4 K/mm3 (0.0-0.8) H 12/19/16 05:02 Eosinophils # (Manual) 0.0 K/mm3 (0.0-0.4) 12/19/16 05:02 Basophils # (Manual) 0.2 K/mm3 (0.0-0.1) H 12/19/16 05:02 Metamyelocytes # 0.0 K/mm3 12/19/16 05:02 Myelocytes # 0.0 K/mm3 12/19/16 05:02 Promyelocytes # 0.0 K/mm3 12/19/16 05:02 Blast Cells # 0.0 K/mm3 12/19/16 05:02 Pathologist Review 09/13/16 04:00 WBC Morphology Not Reportable 12/19/16 05:02 Hypersegmented Neuts Not Reportable 12/19/16 05:02 Hyposegmented Neuts Not Reportable 12/19/16 05:02 Hypogranular Neuts Not Reportable 12/19/16 05:02 Smudge Cells Not Reportable 12/19/16 05:02 Toxic Granulation Not Reportable 12/19/16 05:02 Toxic Vacuolation Not Reportable 12/19/16 05:02 Dohle Bodies Not Reportable 12/19/16 05:02 Pelger-Huet Anomaly Not Reportable 12/19/16 05:02 Jasmina Rods Not Reportable 12/19/16 05:02 Platelet Estimate Consistent w auto 12/19/16 05:02 Clumped Platelets Not Reportable 12/19/16 05:02 Plt Clumps, EDTA Not Reportable 12/19/16 05:02 Large Platelets Not Reportable 12/19/16 05:02 Giant Platelets Not Reportable 12/19/16 05:02 Platelet Satelliting Not Reportable 12/19/16 05:02 Plt Morphology Comment Not Reportable 12/19/16 05:02 RBC Morphology Not Reportable 12/19/16 05:02 Dimorphic RBCs Not Reportable 12/19/16 05:02 Polychromasia Not Reportable 12/19/16 05:02 Hypochromasia Not Reportable 12/19/16 05:02 Poikilocytosis Not Reportable 12/19/16 05:02 Anisocytosis Not Reportable 12/19/16 05:02 Microcytosis Not Reportable 12/19/16 05:02 Macrocytosis Not Reportable 12/19/16 05:02 Spherocytes Not Reportable 12/19/16 05:02 Pappenheimer Bodies Not Reportable 12/19/16 05:02 Sickle Cells Not Reportable 12/19/16 05:02 Target Cells Few 12/19/16 05:02 Tear Drop Cells Not Reportable 12/19/16 05:02 Ovalocytes Not Reportable 12/19/16 05:02 Stomatocytes Rare 12/03/16 04:00 Helmet Cells Not Reportable 12/19/16 05:02 [place] Bodies Not Reportable 12/19/16 05:02 [place] Rings Not Reportable 12/19/16 05:02 [place] Cells Not Reportable 12/19/16 05:02 Bite Cells Not Reportable 12/19/16 05:02 Crenated Cell Not Reportable 12/19/16 05:02 Elliptocytes Not Reportable 12/19/16 05:02 Acanthocytes (Spur) Not Reportable 12/19/16 05:02 Rouleaux Not Reportable 12/19/16 05:02 Hemoglobin C Crystals Not Reportable 12/19/16 05:02 Schistocytes Not Reportable 12/19/16 05:02 Malaria parasites Not Reportable 12/19/16 05:02 ESR > 140.0 mm/Hr (0-20) 09/08/16 11:48 Jun Bodies Not Reportable 12/19/16 05:02 Hem Pathologist Commnt No 12/19/16 05:02 PT 15.4 Sec. (12.2-14.9) H 01/13/17 15:50 INR 1.16 (0.87-1.13) H 01/13/17 15:50 APTT 33.0 Sec. (24.2-36.6) 10/09/16 03:45 Thrombin Time 16.8 Sec. (15.1-19.6) 09/03/16 00:10 Fibrinogen 750 mg/dl (211-480) H 09/08/16 11:48 Lupus Anticoagulant see below 09/12/16 09:59 LA PTT Baseline See scanned report 09/12/16 09:59 dRVVT Confirm Interp Positive (Negative) H 09/12/16 09:59 dRVVT Screen 50:50 See scanned report 09/12/16 09:59 dRVVT Mix Interpret See scanned report 09/12/16 09:59 Protein C Antigen 122 % (70-140) 09/08/16 15:35 Free Protein S 97 % normal (50-147) 09/08/16 15:35 Total Protein S 109 % (70-140) 09/08/16 15:35 Antithrombin III Ag 100 % (80-120) 09/08/16 15:35 Heparin Anti-Xa, Unfract Negative (Negative) 09/29/16 13:35 Factor V Activity 182 % (65-150) H 09/08/16 15:35 POC ABG pH 7.436 (7.35-7.45) 01/20/17 12: ABG pH 7.450 pH Units (7.350-7.450) 12/05/16 Unknown POC ABG pCO2 35.3 (35-45) 01/20/17 12:17 ABG pCO2 29.6 mm Hg 12/05/16 Unknown POC ABG pO2 70 (80-105) L 01/20/17 12: ABG pO2 75.2 mm Hg (80.0-90.0) L 12/05/16 Unknown POC ABG HCO3 23.8 01/20/17 12:17 ABG HCO3 20.1 mmol/L (20.0-26.0) 12/05/16 Unknown POC ABG Total CO2 25 01/20/17 12:17 POC ABG O2 Sat 94 01/20/17 12:17 ABG O2 Saturation 96.8 % (95.0-99.0) 12/05/16 Unknown ABG O2 Content 9.9 (0.0-44) 12/05/16 Unknown POC ABG Base Excess 0 01/20/17 12:17 ABG Base Excess -3.4 mmol/L (-2.0-3.0) L 12/05/16 Unknown ABG Hemoglobin 7.4 gm/dl (12.0-16.0) L 12/05/16 Unknown ABG Carboxyhemoglobin 1.8 % (0.0-5.0) 12/05/16 Unknown ABG Methemoglobin 0.6 % (0.0-1.5) 12/05/16 Unknown Oxyhemoglobin 94.5 % (95.0-99.0) L 12/05/16 Unknown FiO2 30 % 01/20/17 12:17 Sodium 136 mmol/L (137-145) L 02/20/17 06:15 Potassium 5.1 mmol/L (3.6-5.0) H 02/20/17 06:15 Chloride 97.6 mmol/L (98-107) L 02/20/17 06:15 Carbon Dioxide 18 mmol/L (22-30) L 02/20/17 06:15 Anion Gap 26 mmol/L 02/20/17 06:15 BUN 135 mg/dL (7-17) H 02/20/17 06:15 Creatinine 3.2 mg/dL (0.7-1.2) H 02/20/17 06:15 Estimated GFR 19 ml/min 02/20/17 06:15 BUN/Creatinine Ratio 42 % 02/20/17 06:15 Glucose 110 mg/dL (65-100) H 02/20/17 06:15 POC Glucose 173 (70-105) H 02/20/17 11:30 Osmolality 351 Mosm/kg 09/16/16 11:47 Lactic Acid 2.30 mmol/L (0.7-2.0) H* 01/09/17 08:22 Calcium 9.3 mg/dL (8.4-10.2) 02/20/17 06:15 Ionized Calcium 6.0 mg/dL (4.8-5.6) H 02/15/17 19:08 Phosphorus 5.60 mg/dL (2.5-4.5) H 02/20/17 06:15 Magnesium 1.90 mg/dL (1.7-2.3) 02/19/17 09:45 Total Bilirubin 0.40 mg/dL (0.1-1.2) 02/06/17 04:45 Direct Bilirubin 0.2 mg/dL (0-0.2) 01/28/17 04:00 Indirect Bilirubin 0.3 mg/dL 01/28/17 04:00 AST 29 units/L (5-40) 02/06/17 04:45 ALT 26 units/L (7-56) 02/06/17 04:45 Alkaline Phosphatase 199 units/L (35-129) H 02/06/17 04:45 Ammonia 27.0 umol/L (25-60) 09/07/16 08:37 Lactate Dehydrogenase 170 units/L (91-180) 01/13/17 15:50 Total Creatine Kinase 121 units/L (30-135) 09/29/16 20:12 CK-MB (CK-2) < 1.0 ng/mL (0.0-4.0) 09/29/16 20:12 CK-MB (CK-2) Rel Index 0.8 (0-4) 09/29/16 20:12 Troponin T 0.204 ng/mL (0.00-0.029) H* 09/29/16 20:12 C-Reactive Protein 8.10 mg/dL (0.00-1.30) H 01/31/17 11:12 Total Protein 6.7 g/dL (6.3-8.2) 02/06/17 04:45 Albumin 1.4 g/dL (3.9-5) L 02/06/17 04:45 Albumin/Globulin Ratio 0.3 % 02/06/17 04:45 Prealbumin 0.110 g/L (0.200-0.400) L 12/29/16 05:15 Triglycerides 55 mg/dL (2-149) 02/06/17 04:45 Cholesterol 31 mg/dL (50-199) L 09/29/16 20:12 LDL Cholesterol Direct 4 mg/dL (50-130) L 09/29/16 20:12 HDL Cholesterol 3 mg/dL (40-59) L 09/29/16 20:12 Cholesterol/HDL Ratio 10.33 % 09/29/16 20:12 Angiotensin Convert Enz See scanned report 09/08/16 11:48 Renin 0.99 ng/mL/h (0.25-5.82) 10/07/16 10:56 Aldosterone <1 ng/dL () 10/07/16 10:56 Aldosterone/Renin Dir see below 10/07/16 10:56 Serotonin Release Assay See scanned report 09/29/16 13:35 25-OH Vitamin D Total 13 ng/mL (30-100) L 02/15/17 19:08 TSH 1.010 mlU/mL (0.270-4.200) 09/07/16 08:37 HCG, Qual Negative (Negative) 09/03/16 00:10 PTH Intact 10.88 pg/mL (15-65) L 02/15/17 19:08 Total Cortisol 18.2 mcg/dL () 02/02/17 20:09 Urine Color Yellow (Yellow) 11/05/16 13:09 Urine Turbidity Clear (Clear) 11/05/16 13:09 Urine pH 9.0 (5.0-7.0) H 11/05/16 13:09 Ur Specific [place] 1.011 (1.003-1.030) 11/05/16 13:09 Urine Protein 100 mg/dl mg/dL (Negative) 11/05/16 13:09 Urine Glucose (UA) Neg mg/dL (Negative) 11/05/16 13:09 Urine Ketones Neg mg/dL (Negative) 11/05/16 13:09 Urine Blood Neg (Negative) 11/05/16 13:09 Urine Nitrite Neg (Negative) 11/05/16 13:09 Urine Bilirubin Neg (Negative) 11/05/16 13:09 Urine Urobilinogen < 2.0 mg/dL (<2.0) 11/05/16 13:09 Ur Leukocyte Esterase Neg (Negative) 11/05/16 13:09 Urine WBC (Auto) 4.0 /HPF (0.0-6.0) 11/05/16 13:09 Urine RBC (Auto) 1.0 /HPF (0.0-6.0) 11/05/16 13:09 U Epithel Cells (Auto) 1.0 /HPF (0-13.0) 10/07/16 18:30 Urine Bacteria (Auto) 4+ /HPF (Negative) 11/05/16 13:09 Urine WBC Clumps 2+ /HPF 09/07/16 02:47 Hyaline Casts 4 /LPF 09/07/16 02:47 Urine Mucus Few /HPF 10/07/16 18:30 Urine Yeast (Budding) 3+ /HPF 10/07/16 18:30 Urine Eosinophils None seen (None Seen) 09/07/16 16:00 Urine Total Volume 950 11/12/16 10:18 Urine Creatinine 19.7 mg/dL (0.1-20.0) 11/12/16 10:18 Height (in) 65.0 inches 11/12/16 10:18 Weight (lb) 181.0 lbs 11/12/16 10:18 Creatinine Clearance 5 11/12/16 10:18 Urine Sodium 36 mEq/L 09/16/16 19:19 Urine Total Protein 16 mg/dL (5-11.8) H 09/16/16 19:19 Fluid Type Pleural 01/13/17 12:10 Fluid Color Yellow 01/13/17 12:10 Fluid Appearance Hazy 01/13/17 12:10 Fluid WBC 182 /mm3 01/13/17 12:10 Fluid RBC 41 /mm3 01/13/17 12:10 Fluid Seg Neutrophils 85.0 % 01/13/17 12:10 Fluid Lymphocytes 8.0 % 01/13/17 12:10 Fluid Reactive Lymphs 0 % 01/13/17 12:10 Fluid Monocytes 6.0 % 01/13/17 12:10 Fluid Eosinophils 1.0 % 01/13/17 12:10 Fluid Basophils 0 % 01/13/17 12:10 Fluid Total Protein 3.0 (15.0-45.0) L 01/13/17 12:10 Fluid LDH 1322 01/13/17 12:10 Fluid Comment Diff performed 01/13/17 12:10 Vancomycin Trough 2.3 ug/mL (5.0-20.0) L 09/21/16 13:00 Random Vancomycin 16.5 ug/mL (0-40.0) 11/28/16 09:45 Urine Opiates Screen Presumptive negative 09/03/16 15:11 Urine Methadone Screen Presumptive positive 09/03/16 15:11 Ur Barbiturates Screen Presumptive positive 09/03/16 15:11 Ur Phencyclidine Scrn Presumptive negative 09/03/16 15:11 Ur Amphetamines Screen Presumptive negative 09/03/16 15:11 U Benzodiazepines Scrn Presumptive negative 09/03/16 15:11 Urine Cocaine Screen Presumptive negative 09/03/16 15:11 U Marijuana (THC) Screen Presumptive positive 09/03/16 15:11 Drugs of Abuse Note Disclamer 09/03/16 15:11 Rheumatoid Factor 24 IU/ml (0-13) H 09/08/16 11:48 SAHIL Screen Negative (Negative) 09/07/16 09:20 Proteinase 3 (PR3) Ab <1.0 AI (<1.0) 09/07/16 09:20 Myeloperoxidase Ab <1.0 AI (<1.0) 09/07/16 09:20 Sjogren's Antibody <1.0 AI (<1.0) 09/08/16 15:35 Scl-70 Scleroderma Ab <1.0 AI (<1.0) 09/08/16 15:35 Centromere B Antibody <1.0 AI (<1.0) 09/08/16 12:02 Heparin-induced Plt Ab Negative (Negative) 09/29/16 13:35 UF Heparin High Dose 11 % Release 09/29/16 13:35 SUDHIR UFH Low Dose 0.1 6 % Release 09/29/16 13:35 SUDHIR UFH Low Dose 0.5 8 % Release 09/29/16 13:35 Cardiolipid IgG Ab <14 GPL (<=14) 09/12/16 09:59 Cardiolipid IgA Ab <11 APL (<=11) 09/12/16 09:59 Cardiolipid IgM Ab <12 MPL (<=12) 09/12/16 09:59 Complement C3 148 mg/dL (90-180) 09/07/16 09:20 Complement C4 58 mg/dL (16-47) H 09/07/16 09:20 RPR Nonreactive (Nonreactive) 09/08/16 11:48 Hepatitis A IgM Ab Non-reactive (NonReactive) 09/24/16 14:40 Hep Bs Antigen Non-reactive (Negative) 09/24/16 14:40 Hep B Core IgM Ab Non-reactive (NonReactive) 09/24/16 14:40 Hepatitis C Antibody Non-reactive (NonReactive) 09/24/16 14:40 HIV 1&2 Antibody Rapid Non react (Non React) 09/08/16 11:48 HIV P24 Antigen Non react (Non React) 09/08/16 11:48 Miscellaneous Test Flexitest 1 H 01/09/17 18:45 Blood Type A POSITIVE 02/12/17 10:25 Antibody Screen Negative 02/12/17 10:25 DELORIS Antibody Screen Negative 11/24/16 11:20 Crossmatch See Detail 02/12/17 10:25
--- NOTE | 2017-02-20 18:04 | XRay Report ---
FINAL REPORT EXAM: XR CHEST 1V AP HISTORY: fever TECHNIQUE: Chest single AP PRIORS: None. FINDINGS: Tracheostomy and dialysis catheter are unchanged in position. NG tube identified. Distal end descending below the diaphragm distal tip is not identified. And there is hazy opacity at the right base with blunting of the costophrenic angle consistent with a small effusion. IMPRESSION: Small right pleural effusion Tracheostomy and dialysis catheter unchanged
[2017-02-20] MEDS ORDERED: INTRALIPID 20% 250 ML IV SCH (20:00)
[2017-02-20] MEDS ORDERED: TPN ADULT IV SCH (20:00)
[2017-02-20] MEDS: TAZICEF IV SCH (20:00)
[2017-02-20] MEDS: NACL 0.9% IV SCH (20:00)
[2017-02-21] MEDS: HumuLIN R SUB-Q SCH ×4 (00:11→17:22)
[2017-02-21 05:26] LABS: Calcium 8.7 mg/dL (8.4-10.2)
[2017-02-21] MEDS: REGLAN IV SCH ×3 (05:38→21:49)
[2017-02-21] MEDS: FLAGYL 500 MG/100 ML 500 MG/100 ML BAG IV SCH ×3 (05:39→21:27)
--- NOTE | 2017-02-21 09:15 | Progress Note ---
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 UF as tolerated. Patient's serum creatinine is noted to be low - due to wasting of muscle mass. Needs to be maintained on dialysis at this time * Adjust Ca bath with dialysis * Amiodarone gtt per cardiology * Transfuse pRBC per primary team. Epogen TIW prn * Vent management per pulm/CCM * Pressors prn for MAP>65 * Dose medications for renal function Subjective Date of service: 02/21/17 Principal diagnosis: Acute resp failure on MVS; S/P Acute CVA; Acute Encephalopathy; JUANITA Interval history: No acute events overnight. Objective - Vital Signs Vital signs: Vital Signs - 12hr 02/20/17 02/20/17 02/20/17 22:00 23:00 23:19 Temperature Pulse Rate 100 H 107 H 112 H Pulse Rate [ Apical] Pulse Rate [ From Monitor] Pulse Rate [ Left Dorsalis Pedis] Pulse Rate [ Left Radial] Pulse Rate [ Right Dorsalis Pedis] Respiratory 25 H 26 H 25 H Rate Blood Pressure 140/83 141/85 141/85 O2 Sat by Pulse 96 100 99 Oximetry 02/21/17 02/21/17 02/21/17 00:00 01:00 02:00 Temperature 98.1 F Pulse Rate 107 H 120 H 126 H Pulse Rate [ 100 H Apical] Pulse Rate [ 100 H From Monitor] Pulse Rate [ 100 H Left Dorsalis Pedis] Pulse Rate [ 100 H Left Radial] Pulse Rate [ 100 H Right Dorsalis Pedis] Respiratory 18 22 26 H Rate Blood Pressure 139/80 125/83 133/79 O2 Sat by Pulse 100 100 95 Oximetry 02/21/17 02/21/17 02/21/17 03:00 03:17 04:00 Temperature 98.9 F Pulse Rate 138 H 146 H Pulse Rate [ 115 H Apical] Pulse Rate [ From Monitor] Pulse Rate [ Left Dorsalis Pedis] Pulse Rate [ Left Radial] Pulse Rate [ Right Dorsalis Pedis] Respiratory 25 H 22 Rate Blood Pressure 136/93 131/89 O2 Sat by Pulse 98 100 Oximetry 02/21/17 02/21/17 02/21/17 04:30 05:00 06:00 Temperature Pulse Rate 137 H 124 H 117 H Pulse Rate [ Apical] Pulse Rate [ From Monitor] Pulse Rate [ Left Dorsalis Pedis] Pulse Rate [ Left Radial] Pulse Rate [ Right Dorsalis Pedis] Respiratory 25 H 25 H Rate Blood Pressure 131/89 135/90 145/83 O2 Sat by Pulse 98 96 97 Oximetry 02/21/17 02/21/17 02/21/17 07:00 08:00 08:33 Temperature 98.3 F Pulse Rate 118 H 116 H Pulse Rate [ Apical] Pulse Rate [ 117 H From Monitor] Pulse Rate [ Left Dorsalis Pedis] Pulse Rate [ Left Radial] Pulse Rate [ Right Dorsalis Pedis] Respiratory 32 H 24 Rate Blood Pressure 139/85 133/80 O2 Sat by Pulse 89 96 Oximetry 02/21/17 09:00 Temperature Pulse Rate 114 H Pulse Rate [ Apical] Pulse Rate [ From Monitor] Pulse Rate [ Left Dorsalis Pedis] Pulse Rate [ Left Radial] Pulse Rate [ Right Dorsalis Pedis] Respiratory 23 Rate Blood Pressure 120/72 O2 Sat by Pulse 100 Oximetry - General Appearance General appearance: frail EENT: ATNC Neck: other (trach) Respiratory: Present: Other (coarse BS) Cardiology: tachycardia Gastrointestinal: hypoactive bowel sounds Neurologic: other (does not respond to tactile/verbal stimuli) Musculoskeletal: other (+edema) - Lab 02/19/17 09:45 02/21/17 04:09 Most recent lab results ABG pH 7.450 pH Units (7.350-7.450) 12/05/16 Unknown ABG pCO2 29.6 mm Hg 12/05/16 Unknown ABG pO2 75.2 mm Hg (80.0-90.0) L 12/05/16 Unknown ABG HCO3 20.1 mmol/L (20.0-26.0) 12/05/16 Unknown ABG O2 Saturation 96.8 % (95.0-99.0) 12/05/16 Unknown Calcium 8.7 mg/dL (8.4-10.2) 02/21/17 04:09 Phosphorus 3.20 mg/dL (2.5-4.5) D 02/21/17 04:09 Magnesium 1.70 mg/dL (1.7-2.3) 02/21/17 04:09 Urine Creatinine 19.7 mg/dL (0.1-20.0) 11/12/16 10:18 Urine Sodium 36 mEq/L 09/16/16 19:19 Urine Total Protein 16 mg/dL (5-11.8) H 09/16/16 19:19
[2017-02-21] MEDS: DUONEB *Not for PRN Use IH SCH ×3 (10:35→21:58)
--- NOTE | 2017-02-21 10:38 | Progress Note ---
Assessment and Plan Assessment: 1) Recurrent SIRS: new fever- Likely due to perforated bowel 2) History of Peritonitis: from gastric perforation from dislodged PEG with significant ascites -S/P exlap, repair of gastric perforation with wedge gastrectomy, abdominal washout, drain placement on 10/05 3) History of Candidemia: -Blood cultures positive for Silvia albicans on 09/23 and 09/25 -Blood cultures negative on 09/30 -PICC line changed on 10/03 -Source ? gastric perf (PEG placed on 09/20) +/- TPN +/- central lines -TTE 10/07 no vegetations -PICC exchanged on 10/03 -fully treated with micafungin for 14 days last day 10/13 4) History CA-UTI s/p gutierrez exchanged 5) Diarrhea - ? etiology ? antibiotic-induced, not better. 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 from GI bleed 13) Recent abdominal wall abscess at surgical site-treated 14 ) Recent Enterococcal bacteremia from PICC line infection. 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 -S/P debridement at bedside - new wound cx 01/24 +Proteus and MDR Pseudomonas (resistant to meropenem and cefepime/sensitive to ceftazidime) and wound VAC placement -CRP=24 --> 8 16) Presumed VAP: sputum + MDR Pseudomonas / Proteus / pleural effusion s/p thoracentesis 17) Resp failure - better 18) Perforated bowel: Ct showed presumed perf bowel with free air Plan: -f/u blood cultures -s/p ceftazidime for 3 weeks- and before that meropenem -stop flagyl and fluconazole day 7 of 7 -I doubt any antibiotics intervention will help her condition in view of perforated bowel Thank you Dr Pierre for your consultation, will follow up with you. Pauline Carias MD Infectious Diseases Specialist [facility] M [phone] O [phone] Subjective Date of service: 02/21/17 Principal diagnosis: Acute resp failure on MVS; S/P Acute CVA; Acute Encephalopathy; JUANITA Interval history: Interval history: remains on the vent, tachy on monitor, had a fever at 102.6 yesterday Microbiology: Blood cultures: 09/13 neg 8/ Silvia albicans 09/25 Silvia 09/29 neg 10/07 neg 11/05 neg 11/07 ngtd 10 E faecalis 1 of 4 bottles 11/25 neg 12/27 neg 01/09 ngtd 02/14 ngtd Urine cultures: 09/10 neg 09/13 neg 8 10-100K mixed species 10/07 neg 11/05 VRE 11/07 mixed bacteria Respiratory cultures: 09/07 neg 09/13 neg 09/23 neg 11/07 MDR Pseudomonas 11/21 tracheal + VRE 01/09 Pseudomonas x 3 and Proteues Pleural effusion: ngtd Wound cultures: 10/17 abd wall wound purulence + Pseudomonas MDR 01/24 GNRs Stool cultures: cath tip 11/07 + [employer]IGATOR Current Antimicrobials: ceftaz 01/30 Previous Antimicrobials: Zosyn 10/07 Vancomycin PO 10/01 Metronidazole 09/25 Micafungin 09/27-10/13 Meropenem 10/10 Vanco 10/17 zosyn 10/21 Cefepime 11/10 vancomyin 11/07 fluconazole 10/19 cefepime 10/29levaquin 11/05 vanco 11/23 meropenem 01/08 Objective - Exam Narrative Exam: General appearance: alert non communicative, on the vent via trach in mild resp distress, no following commands Eyes: anicteric sclera, moist conjunctivae; PERRLA HENT: Atraumatic; oropharynx limited; Normal external ears. +NGT with greenish secretion Neck: +trach in place; supple, no thyromegaly or lymphadenopathy Lungs: brit coarse BS CV: tachy Abdomen: Soft, tender, +old PEG site no drainage. +iliostomy. Right sided Surgical site x 2 with ostomy bags Extremities: +peripheral edema Skin: sacral area wounds - per wound care STAGE 4 PRESSURE INJURY TO SACRAL MEASURES 7.5X6X2.5, WITH UNDERMINING FROM @9-1 OCLOCK-2.8CM-ULCER CLEANED WITH WOUND SUBSTATION MANAGER-ULCER NEW - Sacrum wound measuring 9x11cm. Necrotic tissue noted on the wound edges and in the wound bed Now with a wound VAC Psych: somnolent . Neuro: alert non verbal on the vent. Lines: PICC / gutierrez - Constitutional Vitals: Vital Signs Temp Pulse Resp BP Pulse Ox 98.3 F 110 H 22 120/72 100 02/21/17 08:33 02/21/17 10:35 02/21/17 10:35 02/21/17 09:00 02/21/17 09:00 Temperature -Last 24 Hours Temperature 98.3 F Temperature 98.9 F Temperature 98.1 F Temperature 98.9 F Temperature 98.6 F Temperature 98.6 F Temperature 98.6 F - Labs CBC & Chem 7: 02/19/17 09:45 02/21/17 04:09 Labs: Abnormal lab results 02/20/17 02/20/17 02/21/17 Range/Units 11:30 17:51 00:14 Sodium (137-145) mmol/L Carbon Dioxide (22-30) mmol/L BUN (7-17) mg/dL Creatinine (0.7-1.2) mg/dL Glucose (65-100) mg/dL POC Glucose 173 H 133 H 125 H (70-105) 02/21/17 02/21/17 Range/Units 04:09 05:03 Sodium 135 L (137-145) mmol/L Carbon Dioxide 20 L (22-30) mmol/L BUN 76 H (7-17) mg/dL Creatinine 2.0 H (0.7-1.2) mg/dL Glucose 125 H (65-100) mg/dL POC Glucose 134 H (70-105)
[2017-02-21] MEDS: ROBINUL PO SCH ×2 (11:08→21:50)
[2017-02-21] MEDS: PROTONIX FEEDTUBE SCH (11:09)
[2017-02-21] MEDS: MAG-OX PO SCH (11:09)
[2017-02-21] MEDS: HEPARIN SUB-Q SCH ×2 (11:10→21:45)
[2017-02-21] MEDS: DURAGESIC TD SCH (13:13)
[2017-02-21] MEDS: TRANSDERM-SCOP TD SCH (13:15)
--- NOTE | 2017-02-21 13:18 | Progress Note ---
Assessment and Plan Patient is 46-year-old woman with a history of hypertension, diabetes mellitus, asthma, hyperlipidemia, chronic kidney disease and anxiety, who was brought in by family because she couldn't get her words out, her face was also twisted, she was admitted for acute CVA and accelerated hypertension, she had a hx of poor adherence with her medications, and uncontrolled hypertension. Patient's SBP on admission was noted be greater than 260. TPA was started but this it was discontinued after 5 minutes because her blood pressure became uncontrolled. The TPA was not initiated again because the patient was outside the TPA window. Patient has had a prolonged hospital stay complicated with recurrent severe sepsis. Patient with most recent event also status post cardiac arrest on 11/21/16 , with CPR and ROSC. Acute on chronic Hypoxemic Respiratory Failure Sepsis -recurrent s/p tracheostomy Hypertension Atrial Fibrillation with RVR Acute encephalopathy s/p CVA Oropharyngeal dysphagia Enterococcal bacteremia Sacral Decubitus Ulcer- unstageable s/p debridement Anemia Obesity JUANITA now on hemodialysis Enteric Fistula - VAP bundle addressed - continue NGT to LIS - continue wound care/wound vac per WCT - Vasopressor if MAP falls < 65mmHg - keep on with daily PSV trials and / or T-piece as tolerated - continue TPN administration (continue TPN; NPO except for meds) - continue airway clearance and secretion management - continue to wean FiO2 for sats > 94% - continue to monitor hemodynamics closely - continue HD/UF per nephrology - continue to follow electrolytes and correct as necessary - continue GI & VTE prophylaxis -transfuse 1 unit PRBC as needed to keep HgH>7g/dL .....she remains critically ill on life sustaining interventions including MVS and at risk for further deterioration including ...longterm prognosis remains poor - Patient Problems (1) Acute respiratory failure with hypoxia Current Visit: Yes Status: Acute (2) Acute blood loss anemia Current Visit: Yes Status: Resolved (3) Acute CVA (cerebrovascular accident) Current Visit: Yes Status: Acute (4) Chronic renal insufficiency Current Visit: Yes Status: Acute (5) Uncontrolled hypertension Current Visit: Yes Status: Acute (6) Leukocytosis (leucocytosis) Current Visit: Yes Status: Acute Qualifiers: Leukocytosis type: leukemoid reaction Qualified Code(s): D72.823 - Leukemoid reaction (7) Dislodged gastrostomy tube Current Visit: Yes Status: Acute (8) Fungemia Current Visit: Yes Status: Resolved (9) Cardiopulmonary arrest with successful resuscitation Current Visit: Yes Status: Acute Subjective Date of service: 02/21/17 Principal diagnosis: Acute resp failure on MVS; S/P Acute CVA; Acute Encephalopathy; JUANITA Interval history: Patient is seen today for: Acute resp failure on MVS; S/P Acute CVA; Acute Encephalopathy; JUANITA Seen and examined at bedside; 24hour events reviewed; nursing and respiratory care staff consulted; no adverse overnight events reported to me; she remains critically ill Patient was made DNR on 02/12/2017 by family, see hospitalist documentation. No new events Vitals, labs, medications, chart reviewed. Discussed with RT and RN Not tolerating weaning Objective - Exam Narrative Exam: General appearance: alert non communicative, on the vent via trach in mild resp distress, not following commands Eyes: anicteric sclera, moist conjunctivae; PERRLA HENT: Atraumatic; oropharynx limited; Normal external ears. +NGT with greenish secretion Neck: +trach in place; supple, no thyromegaly or lymphadenopathy Lungs: brit coarse BS CV: tachycardia, S1,S2 Abdomen: Soft, tender, +old PEG site no drainage. +iliostomy. Right sided Surgical site x 2 with ostomy bags Extremities: +peripheral edema Skin: sacral area wounds - exposed bone, deep sacral decubitus ulcer( seen with innersole fitter) Neuro: alert non verbal on the vent. Lines: PICC / gutierrez Vital Signs - 12hr 02/21/17 02/21/17 02/21/17 02:00 03:00 03:17 Temperature 98.9 F Pulse Rate 126 H 138 H Pulse Rate [ Anterior Bilateral Throughout] Pulse Rate [ Apical] Pulse Rate [ From Monitor] Pulse Rate [ Throughout] Respiratory 26 H 25 H Rate Respiratory Rate [Anterior Bilateral Throughout] Respiratory Rate [ Generalized] Respiratory Rate [ Throughout] Blood Pressure 133/79 136/93 O2 Sat by Pulse 95 98 Oximetry 02/21/17 02/21/17 02/21/17 04:00 04:30 05:00 Temperature Pulse Rate 146 H 137 H 124 H Pulse Rate [ Anterior Bilateral Throughout] Pulse Rate [ 115 H Apical] Pulse Rate [ From Monitor] Pulse Rate [ Throughout] Respiratory 22 25 H Rate Respiratory Rate [Anterior Bilateral Throughout] Respiratory Rate [ Generalized] Respiratory Rate [ Throughout] Blood Pressure 131/89 131/89 135/90 O2 Sat by Pulse 100 98 96 Oximetry 02/21/17 02/21/17 02/21/17 06:00 07:00 08:00 Temperature Pulse Rate 117 H 118 H 114 H Pulse Rate [ Anterior Bilateral Throughout] Pulse Rate [ Apical] Pulse Rate [ 117 H From Monitor] Pulse Rate [ Throughout] Respiratory 25 H 32 H 24 Rate Respiratory Rate [Anterior Bilateral Throughout] Respiratory Rate [ Generalized] Respiratory Rate [ Throughout] Blood Pressure 145/83 139/85 124/76 O2 Sat by Pulse 97 89 100 Oximetry 02/21/17 02/21/17 02/21/17 08:33 09:00 10:00 Temperature 98.3 F Pulse Rate 114 H 112 H Pulse Rate [ Anterior Bilateral Throughout] Pulse Rate [ Apical] Pulse Rate [ From Monitor] Pulse Rate [ Throughout] Respiratory 23 24 Rate Respiratory Rate [Anterior Bilateral Throughout] Respiratory 23 Rate [ Generalized] Respiratory Rate [ Throughout] Blood Pressure 120/72 124/76 O2 Sat by Pulse 100 100 Oximetry 02/21/17 02/21/17 02/21/17 10:35 11:00 12:50 Temperature 98.4 F Pulse Rate 105 H Pulse Rate [ 110 H Anterior Bilateral Throughout] Pulse Rate [ Apical] Pulse Rate [ From Monitor] Pulse Rate [ 114 H Throughout] Respiratory 23 Rate Respiratory 22 Rate [Anterior Bilateral Throughout] Respiratory Rate [ Generalized] Respiratory 23 Rate [ Throughout] Blood Pressure 118/70 O2 Sat by Pulse 100 Oximetry 02/21/17 13:13 Temperature Pulse Rate Pulse Rate [ Anterior Bilateral Throughout] Pulse Rate [ Apical] Pulse Rate [ From Monitor] Pulse Rate [ Throughout] Respiratory 25 H Rate Respiratory Rate [Anterior Bilateral Throughout] Respiratory Rate [ Generalized] Respiratory Rate [ Throughout] Blood Pressure O2 Sat by Pulse Oximetry Constitutional: appears uncomfortable, other (not tracking) Eyes: non-icteric, other (tracheostomy tube in midline of neck) ENT: oropharynx moist, oropharyngeal exudate pre, other (midline tracheostomy tube) Neck: supple, no lymphadenopathy, no JVD, other (no thyromegaly) Effort: mildly labored Ascultation: Bilateral: clear, diminished breath sounds, rales, rhonchi (and referred upper airway sounds) Percussion: Right: dull (base), Bilateral: not dull Cardiovascular: regular rate and rhythm, other (no rubs / murmurs) Gastrointestinal: hypoactive bowel sounds, soft, non-tender, non-distended, other (RLQ & LUQ stomas with colostomy bags) Integumentary: decubitus ulcer (sacral; stage 4 s/p surgical debridement), other (no rash; no cellulitis; poor turgor) Extremities: no cyanosis, pulses normal, no ischemia or petechiae, edema (1+ bilaterally) Neurologic: pupils equal and round, unable to assess, other (encephalopathic) Psychiatric: other (unable to assess) CBC and BMP: 02/19/17 09:45 02/21/17 04:09 ABG, PT/INR, D-dimer: ABG POC ABG pH 7.436 (7.35-7.45) 01/20/17 12:17 ABG pH 7.450 pH Units (7.350-7.450) 12/05/16 Unknown POC ABG pCO2 35.3 (35-45) 01/20/17 12: ABG pCO2 29.6 mm Hg 12/05/16 Unknown POC ABG pO2 70 (80-105) L 01/20/17 12:17 ABG pO2 75.2 mm Hg (80.0-90.0) L 12/05/16 Unknown POC ABG HCO3 23.8 01/20/17 12:17 POC ABG Total CO2 25 01/20/17 12:17 POC ABG O2 Sat 94 01/20/17 12:17 ABG O2 Saturation 96.8 % (95.0-99.0) 12/05/16 Unknown PT/INR, D-dimer PT 15.4 Sec. (12.2-14.9) H 01/13/17 15:50 INR 1.16 (0.87-1.13) H 01/13/17 15:50 Abnormal lab findings: Abnormal Labs 09/03/16 09/03/16 09/03/16 00:03 00:10 00:10 WBC 13.9 H RBC 5.95 H Hgb Hct 44.0 H MCV 74 L MCH 22 L MCHC RDW 17.5 H Plt Count Lymph % (Auto) [place] % (Auto) Lymph # [place] # Baso # Seg Neutrophils % Seg Neuts % (Manual) Lymphocytes % (Manual) 54.0 H Monocytes % (Manual) Eosinophils % (Manual) Basophils % (Manual) Nucleated RBC % Seg Neutrophils # Seg Neutrophils # Man Lymphocytes # (Manual) 7.5 H Monocytes # (Manual) Eosinophils # (Manual) Basophils # (Manual) PT INR Fibrinogen dRVVT Confirm Interp Factor V Activity POC ABG pH POC ABG pCO2 POC ABG pO2 ABG pO2 ABG HCO3 ABG Base Excess ABG Hemoglobin Oxyhemoglobin Sodium Potassium 2.8 L* Chloride Carbon Dioxide 21 L BUN Creatinine 1.7 H Glucose 159 H POC Glucose 177 H Lactic Acid Calcium Ionized Calcium Phosphorus Magnesium Direct Bilirubin AST ALT Alkaline Phosphatase Lactate Dehydrogenase Troponin T C-Reactive Protein Total Protein Albumin Prealbumin Triglycerides Cholesterol LDL Cholesterol Direct HDL Cholesterol 25-OH Vitamin D Total PTH Intact Urine pH Urine WBC (Auto) Urine Creatinine Urine Total Protein Fluid Total Protein Vancomycin Trough Rheumatoid Factor Complement C4 Miscellaneous Test Crossmatch 09/03/16 09/03/16 09/03/16 12:12 15:07 16:20 WBC RBC Hgb Hct MCV MCH MCHC RDW Plt Count Lymph % (Auto) [place] % (Auto) Lymph # [place] # Baso # Seg Neutrophils % Seg Neuts % (Manual) Lymphocytes % (Manual) Monocytes % (Manual) Eosinophils % (Manual) Basophils % (Manual) Nucleated RBC % Seg Neutrophils # Seg Neutrophils # Man Lymphocytes # (Manual) Monocytes # (Manual) Eosinophils # (Manual) Basophils # (Manual) PT INR Fibrinogen dRVVT Confirm Interp Factor V Activity POC ABG pH 7.452 H POC ABG pCO2 POC ABG pO2 ABG pO2 ABG HCO3 ABG Base Excess ABG Hemoglobin Oxyhemoglobin Sodium Potassium Chloride Carbon Dioxide BUN Creatinine Glucose POC Glucose 178 H Lactic Acid Calcium Ionized Calcium Phosphorus 2.20 L Magnesium 1.60 L Direct Bilirubin AST ALT Alkaline Phosphatase Lactate Dehydrogenase Troponin T C-Reactive Protein Total Protein Albumin Prealbumin Triglycerides Cholesterol LDL Cholesterol Direct HDL Cholesterol 25-OH Vitamin D Total PTH Intact Urine pH Urine WBC (Auto) Urine Creatinine Urine Total Protein Fluid Total Protein Vancomycin Trough Rheumatoid Factor Complement C4 Miscellaneous Test Crossmatch 09/03/16 09/03/16 09/03/16 17:57 17:58 23:50 WBC RBC Hgb Hct MCV MCH MCHC RDW Plt Count Lymph % (Auto) [place] % (Auto) Lymph # [place] # Baso # Seg Neutrophils % Seg Neuts % (Manual) Lymphocytes % (Manual) Monocytes % (Manual) Eosinophils % (Manual) Basophils % (Manual) Nucleated RBC % Seg Neutrophils # Seg Neutrophils # Man Lymphocytes # (Manual) Monocytes # (Manual) Eosinophils # (Manual) Basophils # (Manual) PT INR Fibrinogen dRVVT Confirm Interp Factor V Activity POC ABG pH POC ABG pCO2 POC ABG pO2 ABG pO2 ABG HCO3 ABG Base Excess ABG Hemoglobin Oxyhemoglobin Sodium Potassium Chloride Carbon Dioxide BUN Creatinine Glucose POC Glucose 162 H 145 H Lactic Acid Calcium Ionized Calcium Phosphorus 2.30 L Magnesium Direct Bilirubin AST ALT Alkaline Phosphatase Lactate Dehydrogenase Troponin T C-Reactive Protein Total Protein Albumin Prealbumin Triglycerides Cholesterol LDL Cholesterol Direct HDL Cholesterol 25-OH Vitamin D Total PTH Intact Urine pH Urine WBC (Auto) Urine Creatinine Urine Total Protein Fluid Total Protein Vancomycin Trough Rheumatoid Factor Complement C4 Miscellaneous Test Crossmatch 09/04/16 09/04/16 09/04/16 03:31 03:31 05:42 WBC RBC Hgb 9.7 L D Hct MCV 72 L MCH 23 L MCHC RDW 17.5 H Plt Count Lymph % (Auto) 11.1 L [place] % (Auto) Lymph # [place] # Baso # Seg Neutrophils % 84.3 H Seg Neuts % (Manual) Lymphocytes % (Manual) Monocytes % (Manual) Eosinophils % (Manual) Basophils % (Manual) Nucleated RBC % Seg Neutrophils # 8.9 H Seg Neutrophils # Man Lymphocytes # (Manual) Monocytes # (Manual) Eosinophils # (Manual) Basophils # (Manual) PT INR Fibrinogen dRVVT Confirm Interp Factor V Activity POC ABG pH POC ABG pCO2 POC ABG pO2 ABG pO2 ABG HCO3 ABG Base Excess ABG Hemoglobin Oxyhemoglobin Sodium 135 L Potassium 2.9 L* Chloride 97.2 L Carbon Dioxide 19 L BUN Creatinine 1.7 H Glucose 170 H POC Glucose 152 H Lactic Acid Calcium Ionized Calcium Phosphorus Magnesium Direct Bilirubin AST ALT Alkaline Phosphatase Lactate Dehydrogenase Troponin T C-Reactive Protein Total Protein Albumin Prealbumin Triglycerides 160 H Cholesterol LDL Cholesterol Direct HDL Cholesterol 31 L 25-OH Vitamin D Total PTH Intact Urine pH Urine WBC (Auto) Urine Creatinine Urine Total Protein Fluid Total Protein Vancomycin Trough Rheumatoid Factor Complement C4 Miscellaneous Test Crossmatch 09/04/16 09/04/16 09/04/16 11:34 17:46 23:29 WBC RBC Hgb Hct MCV MCH MCHC RDW Plt Count Lymph % (Auto) [place] % (Auto) Lymph # [place] # Baso # Seg Neutrophils % Seg Neuts % (Manual) Lymphocytes % (Manual) Monocytes % (Manual) Eosinophils % (Manual) Basophils % (Manual) Nucleated RBC % Seg Neutrophils # Seg Neutrophils # Man Lymphocytes # (Manual) Monocytes # (Manual) Eosinophils # (Manual) Basophils # (Manual) PT INR Fibrinogen dRVVT Confirm Interp Factor V Activity POC ABG pH POC ABG pCO2 POC ABG pO2 ABG pO2 ABG HCO3 ABG Base Excess ABG Hemoglobin Oxyhemoglobin Sodium Potassium Chloride Carbon Dioxide BUN Creatinine Glucose POC Glucose 165 H 210 H 139 H Lactic Acid Calcium Ionized Calcium Phosphorus Magnesium Direct Bilirubin AST ALT Alkaline Phosphatase Lactate Dehydrogenase Troponin T C-Reactive Protein Total Protein Albumin Prealbumin Triglycerides Cholesterol LDL Cholesterol Direct HDL Cholesterol 25-OH Vitamin D Total PTH Intact Urine pH Urine WBC (Auto) Urine Creatinine Urine Total Protein Fluid Total Protein Vancomycin Trough Rheumatoid Factor Complement C4 Miscellaneous Test Crossmatch 09/05/16 09/05/16 09/05/16 04:05 04:05 05:38 WBC RBC Hgb Hct MCV 76 L D MCH 23 L MCHC RDW 17.8 H Plt Count Lymph % (Auto) [place] % (Auto) Lymph # [place] # Baso # Seg Neutrophils % Seg Neuts % (Manual) Lymphocytes % (Manual) Monocytes % (Manual) Eosinophils % (Manual) Basophils % (Manual) Nucleated RBC % Seg Neutrophils # Seg Neutrophils # Man Lymphocytes # (Manual) Monocytes # (Manual) Eosinophils # (Manual) Basophils # (Manual) PT INR Fibrinogen dRVVT Confirm Interp Factor V Activity POC ABG pH POC ABG pCO2 POC ABG pO2 ABG pO2 ABG HCO3 ABG Base Excess ABG Hemoglobin Oxyhemoglobin Sodium 134 L Potassium Chloride Carbon Dioxide 18 L BUN Creatinine 1.8 H Glucose 192 H POC Glucose 175 H Lactic Acid Calcium Ionized Calcium Phosphorus Magnesium Direct Bilirubin AST ALT Alkaline Phosphatase Lactate Dehydrogenase Troponin T C-Reactive Protein Total Protein Albumin Prealbumin Triglycerides Cholesterol LDL Cholesterol Direct HDL Cholesterol 25-OH Vitamin D Total PTH Intact Urine pH Urine WBC (Auto) Urine Creatinine Urine Total Protein Fluid Total Protein Vancomycin Trough Rheumatoid Factor Complement C4 Miscellaneous Test Crossmatch 09/05/16 09/05/16 09/05/16 11:38 17:48 23:22 WBC RBC Hgb Hct MCV MCH MCHC RDW Plt Count Lymph % (Auto) [place] % (Auto) Lymph # [place] # Baso # Seg Neutrophils % Seg Neuts % (Manual) Lymphocytes % (Manual) Monocytes % (Manual) Eosinophils % (Manual) Basophils % (Manual) Nucleated RBC % Seg Neutrophils # Seg Neutrophils # Man Lymphocytes # (Manual) Monocytes # (Manual) Eosinophils # (Manual) Basophils # (Manual) PT INR Fibrinogen dRVVT Confirm Interp Factor V Activity POC ABG pH POC ABG pCO2 POC ABG pO2 ABG pO2 ABG HCO3 ABG Base Excess ABG Hemoglobin Oxyhemoglobin Sodium Potassium Chloride Carbon Dioxide BUN Creatinine Glucose POC Glucose 164 H 186 H 195 H Lactic Acid Calcium Ionized Calcium Phosphorus Magnesium Direct Bilirubin AST ALT Alkaline Phosphatase Lactate Dehydrogenase Troponin T C-Reactive Protein Total Protein Albumin Prealbumin Triglycerides Cholesterol LDL Cholesterol Direct HDL Cholesterol 25-OH Vitamin D Total PTH Intact Urine pH Urine WBC (Auto) Urine Creatinine Urine Total Protein Fluid Total Protein Vancomycin Trough Rheumatoid Factor Complement C4 Miscellaneous Test Crossmatch 09/06/16 09/06/16 09/06/16 04:12 05:59 07:32 WBC RBC Hgb Hct MCV MCH MCHC RDW Plt Count Lymph % (Auto) [place] % (Auto) Lymph # [place] # Baso # Seg Neutrophils % Seg Neuts % (Manual) Lymphocytes % (Manual) Monocytes % (Manual) Eosinophils % (Manual) Basophils % (Manual) Nucleated RBC % Seg Neutrophils # Seg Neutrophils # Man Lymphocytes # (Manual) Monocytes # (Manual) Eosinophils # (Manual) Basophils # (Manual) PT INR Fibrinogen dRVVT Confirm Interp Factor V Activity POC ABG pH 7.514 H POC ABG pCO2 29.1 L POC ABG pO2 72 L ABG pO2 ABG HCO3 ABG Base Excess ABG Hemoglobin Oxyhemoglobin Sodium 133 L Potassium 3.4 L Chloride 94.9 L Carbon Dioxide 19 L BUN 30 H Creatinine 2.1 H Glucose 139 H POC Glucose 146 H Lactic Acid Calcium Ionized Calcium Phosphorus Magnesium Direct Bilirubin AST ALT Alkaline Phosphatase Lactate Dehydrogenase Troponin T C-Reactive Protein Total Protein Albumin Prealbumin Triglycerides Cholesterol LDL Cholesterol Direct HDL Cholesterol 25-OH Vitamin D Total PTH Intact Urine pH Urine WBC (Auto) Urine Creatinine Urine Total Protein Fluid Total Protein Vancomycin Trough Rheumatoid Factor Complement C4 Miscellaneous Test Crossmatch 09/06/16 09/06/16 09/06/16 11:57 17:58 19:02 WBC RBC Hgb Hct MCV MCH MCHC RDW Plt Count Lymph % (Auto) [place] % (Auto) Lymph # [place] # Baso # Seg Neutrophils % Seg Neuts % (Manual) Lymphocytes % (Manual) Monocytes % (Manual) Eosinophils % (Manual) Basophils % (Manual) Nucleated RBC % Seg Neutrophils # Seg Neutrophils # Man Lymphocytes # (Manual) Monocytes # (Manual) Eosinophils # (Manual) Basophils # (Manual) PT INR Fibrinogen dRVVT Confirm Interp Factor V Activity POC ABG pH 7.465 H POC ABG pCO2 32.0 L POC ABG pO2 ABG pO2 ABG HCO3 ABG Base Excess ABG Hemoglobin Oxyhemoglobin Sodium Potassium Chloride Carbon Dioxide BUN Creatinine Glucose POC Glucose 165 H 160 H Lactic Acid Calcium Ionized Calcium Phosphorus Magnesium Direct Bilirubin AST ALT Alkaline Phosphatase Lactate Dehydrogenase Troponin T C-Reactive Protein Total Protein Albumin Prealbumin Triglycerides Cholesterol LDL Cholesterol Direct HDL Cholesterol 25-OH Vitamin D Total PTH Intact Urine pH Urine WBC (Auto) Urine Creatinine Urine Total Protein Fluid Total Protein Vancomycin Trough Rheumatoid Factor Complement C4 Miscellaneous Test Crossmatch 09/06/16 09/07/16 09/07/16 23:45 02:47 02:47 WBC RBC Hgb Hct MCV MCH MCHC RDW Plt Count Lymph % (Auto) [place] % (Auto) Lymph # [place] # Baso # Seg Neutrophils % Seg Neuts % (Manual) Lymphocytes % (Manual) Monocytes % (Manual) Eosinophils % (Manual) Basophils % (Manual) Nucleated RBC % Seg Neutrophils # Seg Neutrophils # Man Lymphocytes # (Manual) Monocytes # (Manual) Eosinophils # (Manual) Basophils # (Manual) PT INR Fibrinogen dRVVT Confirm Interp Factor V Activity POC ABG pH POC ABG pCO2 POC ABG pO2 ABG pO2 ABG HCO3 ABG Base Excess ABG Hemoglobin Oxyhemoglobin Sodium Potassium Chloride Carbon Dioxide BUN Creatinine Glucose POC Glucose 204 H Lactic Acid Calcium Ionized Calcium Phosphorus Magnesium Direct Bilirubin AST ALT Alkaline Phosphatase Lactate Dehydrogenase Troponin T C-Reactive Protein Total Protein Albumin Prealbumin Triglycerides Cholesterol LDL Cholesterol Direct HDL Cholesterol 25-OH Vitamin D Total PTH Intact Urine pH Urine WBC (Auto) 68.0 H Urine Creatinine 106.1 H Urine Total Protein Fluid Total Protein Vancomycin Trough Rheumatoid Factor Complement C4 Miscellaneous Test Crossmatch 09/07/16 09/07/16 09/07/16 04:50 06:19 06:39 WBC RBC Hgb Hct MCV MCH MCHC RDW Plt Count Lymph % (Auto) [place] % (Auto) Lymph # [place] # Baso # Seg Neutrophils % Seg Neuts % (Manual) Lymphocytes % (Manual) Monocytes % (Manual) Eosinophils % (Manual) Basophils % (Manual) Nucleated RBC % Seg Neutrophils # Seg Neutrophils # Man Lymphocytes # (Manual) Monocytes # (Manual) Eosinophils # (Manual) Basophils # (Manual) PT INR Fibrinogen dRVVT Confirm Interp Factor V Activity POC ABG pH 7.457 H POC ABG pCO2 32.1 L POC ABG pO2 76 L ABG pO2 ABG HCO3 ABG Base Excess ABG Hemoglobin Oxyhemoglobin Sodium 132 L Potassium Chloride 94.7 L Carbon Dioxide BUN 53 H Creatinine 2.9 H Glucose 151 H POC Glucose 149 H Lactic Acid Calcium Ionized Calcium Phosphorus Magnesium Direct Bilirubin AST ALT Alkaline Phosphatase Lactate Dehydrogenase Troponin T C-Reactive Protein Total Protein Albumin Prealbumin Triglycerides Cholesterol LDL Cholesterol Direct HDL Cholesterol 25-OH Vitamin D Total PTH Intact Urine pH Urine WBC (Auto) Urine Creatinine Urine Total Protein Fluid Total Protein Vancomycin Trough Rheumatoid Factor Complement C4 Miscellaneous Test Crossmatch 09/07/16 09/07/16 09/07/16 09:20 11:43 11:43 WBC 19.4 H RBC Hgb 8.3 L Hct 26.4 L D MCV 72 L D MCH 22 L MCHC RDW 17.9 H Plt Count Lymph % (Auto) 8.5 L [place] % (Auto) Lymph # [place] # 1.0 H Baso # Seg Neutrophils % 85.8 H Seg Neuts % (Manual) Lymphocytes % (Manual) Monocytes % (Manual) Eosinophils % (Manual) Basophils % (Manual) Nucleated RBC % Seg Neutrophils # 16.6 H Seg Neutrophils # Man Lymphocytes # (Manual) Monocytes # (Manual) Eosinophils # (Manual) Basophils # (Manual) PT INR Fibrinogen dRVVT Confirm Interp Factor V Activity POC ABG pH POC ABG pCO2 POC ABG pO2 ABG pO2 ABG HCO3 ABG Base Excess ABG Hemoglobin Oxyhemoglobin Sodium 134 L Potassium Chloride 97.2 L Carbon Dioxide 20 L BUN 58 H Creatinine 2.9 H Glucose 147 H POC Glucose Lactic Acid Calcium Ionized Calcium Phosphorus 2.40 L Magnesium 2.40 H Direct Bilirubin AST ALT Alkaline Phosphatase Lactate Dehydrogenase Troponin T C-Reactive Protein Total Protein 5.8 L Albumin 2.2 L Prealbumin Triglycerides Cholesterol LDL Cholesterol Direct HDL Cholesterol 25-OH Vitamin D Total PTH Intact Urine pH Urine WBC (Auto) Urine Creatinine Urine Total Protein Fluid Total Protein Vancomycin Trough Rheumatoid Factor Complement C4 58 H Miscellaneous Test Crossmatch 09/07/16 09/07/16 09/07/16 11:50 16:00 17:31 WBC RBC Hgb Hct MCV MCH MCHC RDW Plt Count Lymph % (Auto) [place] % (Auto) Lymph # [place] # Baso # Seg Neutrophils % Seg Neuts % (Manual) Lymphocytes % (Manual) Monocytes % (Manual) Eosinophils % (Manual) Basophils % (Manual) Nucleated RBC % Seg Neutrophils # Seg Neutrophils # Man Lymphocytes # (Manual) Monocytes # (Manual) Eosinophils # (Manual) Basophils # (Manual) PT INR Fibrinogen dRVVT Confirm Interp Factor V Activity POC ABG pH POC ABG pCO2 POC ABG pO2 158 H ABG pO2 ABG HCO3 ABG Base Excess ABG Hemoglobin Oxyhemoglobin Sodium Potassium Chloride Carbon Dioxide BUN Creatinine Glucose POC Glucose 175 H Lactic Acid Calcium Ionized Calcium Phosphorus Magnesium Direct Bilirubin AST ALT Alkaline Phosphatase Lactate Dehydrogenase Troponin T C-Reactive Protein Total Protein Albumin Prealbumin Triglycerides Cholesterol LDL Cholesterol Direct HDL Cholesterol 25-OH Vitamin D Total PTH Intact Urine pH Urine WBC (Auto) Urine Creatinine 66.3 H Urine Total Protein Fluid Total Protein Vancomycin Trough Rheumatoid Factor Complement C4 Miscellaneous Test Crossmatch 09/07/16 09/08/16 09/08/16 23:50 05:46 06:18 WBC 17.8 H RBC 3.58 L Hgb 8.1 L Hct 25.5 L MCV 71 L MCH 23 L MCHC RDW 18.4 H Plt Count Lymph % (Auto) [place] % (Auto) Lymph # [place] # Baso # Seg Neutrophils % Seg Neuts % (Manual) 92.0 H Lymphocytes % (Manual) 6.0 L Monocytes % (Manual) Eosinophils % (Manual) Basophils % (Manual) Nucleated RBC % Seg Neutrophils # Seg Neutrophils # Man 16.4 H Lymphocytes # (Manual) 1.1 L Monocytes # (Manual) Eosinophils # (Manual) Basophils # (Manual) PT INR Fibrinogen dRVVT Confirm Interp Factor V Activity POC ABG pH POC ABG pCO2 34.3 L POC ABG pO2 71 L ABG pO2 ABG HCO3 ABG Base Excess ABG Hemoglobin Oxyhemoglobin Sodium Potassium Chloride Carbon Dioxide BUN Creatinine Glucose POC Glucose 216 H Lactic Acid Calcium Ionized Calcium Phosphorus Magnesium Direct Bilirubin AST ALT Alkaline Phosphatase Lactate Dehydrogenase Troponin T C-Reactive Protein Total Protein Albumin Prealbumin Triglycerides Cholesterol LDL Cholesterol Direct HDL Cholesterol 25-OH Vitamin D Total PTH Intact Urine pH Urine WBC (Auto) Urine Creatinine Urine Total Protein Fluid Total Protein Vancomycin Trough Rheumatoid Factor Complement C4 Miscellaneous Test Crossmatch 09/08/16 09/08/16 09/08/16 06:18 06:51 10:55 WBC RBC Hgb Hct MCV MCH MCHC RDW Plt Count Lymph % (Auto) [place] % (Auto) Lymph # [place] # Baso # Seg Neutrophils % Seg Neuts % (Manual) Lymphocytes % (Manual) Monocytes % (Manual) Eosinophils % (Manual) Basophils % (Manual) Nucleated RBC % Seg Neutrophils # Seg Neutrophils # Man Lymphocytes # (Manual) Monocytes # (Manual) Eosinophils # (Manual) Basophils # (Manual) PT INR Fibrinogen dRVVT Confirm Interp Factor V Activity POC ABG pH POC ABG pCO2 POC ABG pO2 ABG pO2 ABG HCO3 ABG Base Excess ABG Hemoglobin Oxyhemoglobin Sodium 133 L Potassium Chloride 96.9 L Carbon Dioxide 20 L BUN 63 H Creatinine 2.7 H Glucose 195 H POC Glucose 204 H 169 H Lactic Acid Calcium Ionized Calcium Phosphorus Magnesium Direct Bilirubin AST ALT Alkaline Phosphatase Lactate Dehydrogenase Troponin T C-Reactive Protein Total Protein Albumin Prealbumin Triglycerides Cholesterol LDL Cholesterol Direct HDL Cholesterol 25-OH Vitamin D Total PTH Intact Urine pH Urine WBC (Auto) Urine Creatinine Urine Total Protein Fluid Total Protein Vancomycin Trough Rheumatoid Factor Complement C4 Miscellaneous Test Crossmatch 09/08/16 09/08/16 09/08/16 11:48 11:48 11:48 WBC RBC Hgb Hct MCV MCH MCHC RDW Plt Count Lymph % (Auto) [place] % (Auto) Lymph # [place] # Baso # Seg Neutrophils % Seg Neuts % (Manual) Lymphocytes % (Manual) Monocytes % (Manual) Eosinophils % (Manual) Basophils % (Manual) Nucleated RBC % Seg Neutrophils # Seg Neutrophils # Man Lymphocytes # (Manual) Monocytes # (Manual) Eosinophils # (Manual) Basophils # (Manual) PT INR Fibrinogen 750 H dRVVT Confirm Interp Factor V Activity POC ABG pH POC ABG pCO2 POC ABG pO2 ABG pO2 ABG HCO3 ABG Base Excess ABG Hemoglobin Oxyhemoglobin Sodium Potassium Chloride Carbon Dioxide BUN Creatinine Glucose POC Glucose Lactic Acid Calcium Ionized Calcium Phosphorus Magnesium Direct Bilirubin AST ALT Alkaline Phosphatase Lactate Dehydrogenase Troponin T C-Reactive Protein 15.70 H Total Protein Albumin Prealbumin Triglycerides Cholesterol LDL Cholesterol Direct HDL Cholesterol 25-OH Vitamin D Total PTH Intact Urine pH Urine WBC (Auto) Urine Creatinine Urine Total Protein Fluid Total Protein Vancomycin Trough Rheumatoid Factor 24 H Complement C4 Miscellaneous Test Crossmatch 09/08/16 09/08/16 09/09/16 15:35 18:25 00:24 WBC RBC Hgb Hct MCV MCH MCHC RDW Plt Count Lymph % (Auto) [place] % (Auto) Lymph # [place] # Baso # Seg Neutrophils % Seg Neuts % (Manual) Lymphocytes % (Manual) Monocytes % (Manual) Eosinophils % (Manual) Basophils % (Manual) Nucleated RBC % Seg Neutrophils # Seg Neutrophils # Man Lymphocytes # (Manual) Monocytes # (Manual) Eosinophils # (Manual) Basophils # (Manual) PT INR Fibrinogen dRVVT Confirm Interp Factor V Activity 182 H POC ABG pH POC ABG pCO2 POC ABG pO2 ABG pO2 ABG HCO3 ABG Base Excess ABG Hemoglobin Oxyhemoglobin Sodium Potassium Chloride Carbon Dioxide BUN Creatinine Glucose POC Glucose 184 H 216 H Lactic Acid Calcium Ionized Calcium Phosphorus Magnesium Direct Bilirubin AST ALT Alkaline Phosphatase Lactate Dehydrogenase Troponin T C-Reactive Protein Total Protein Albumin Prealbumin Triglycerides Cholesterol LDL Cholesterol Direct HDL Cholesterol 25-OH Vitamin D Total PTH Intact Urine pH Urine WBC (Auto) Urine Creatinine Urine Total Protein Fluid Total Protein Vancomycin Trough Rheumatoid Factor Complement C4 Miscellaneous Test Crossmatch 09/09/16 09/09/16 09/09/16 03:00 03:00 04:04 WBC 27.9 H RBC Hgb 8.7 L Hct 28.1 L MCV 72 L MCH 22 L MCHC RDW 18.4 H Plt Count 485 H Lymph % (Auto) [place] % (Auto) Lymph # [place] # Baso # Seg Neutrophils % Seg Neuts % (Manual) 77.0 H Lymphocytes % (Manual) 9.0 L Monocytes % (Manual) Eosinophils % (Manual) Basophils % (Manual) Nucleated RBC % Seg Neutrophils # Seg Neutrophils # Man 21.5 H Lymphocytes # (Manual) Monocytes # (Manual) 2.0 H Eosinophils # (Manual) Basophils # (Manual) PT INR Fibrinogen dRVVT Confirm Interp Factor V Activity POC ABG pH POC ABG pCO2 POC ABG pO2 121 H ABG pO2 ABG HCO3 ABG Base Excess ABG Hemoglobin Oxyhemoglobin Sodium 135 L Potassium Chloride 96.3 L Carbon Dioxide 21 L BUN 83 H Creatinine 3.0 H Glucose 135 H POC Glucose Lactic Acid Calcium Ionized Calcium Phosphorus Magnesium Direct Bilirubin AST ALT Alkaline Phosphatase Lactate Dehydrogenase Troponin T C-Reactive Protein Total Protein Albumin Prealbumin Triglycerides Cholesterol LDL Cholesterol Direct HDL Cholesterol 25-OH Vitamin D Total PTH Intact Urine pH Urine WBC (Auto) Urine Creatinine Urine Total Protein Fluid Total Protein Vancomycin Trough Rheumatoid Factor Complement C4 Miscellaneous Test Crossmatch 09/09/16 09/09/16 09/09/16 05:41 11:55 14:13 WBC RBC Hgb Hct MCV MCH MCHC RDW Plt Count Lymph % (Auto) [place] % (Auto) Lymph # [place] # Baso # Seg Neutrophils % Seg Neuts % (Manual) Lymphocytes % (Manual) Monocytes % (Manual) Eosinophils % (Manual) Basophils % (Manual) Nucleated RBC % Seg Neutrophils # Seg Neutrophils # Man Lymphocytes # (Manual) Monocytes # (Manual) Eosinophils # (Manual) Basophils # (Manual) PT INR Fibrinogen dRVVT Confirm Interp Factor V Activity POC ABG pH POC ABG pCO2 POC ABG pO2 ABG pO2 ABG HCO3 ABG Base Excess ABG Hemoglobin Oxyhemoglobin Sodium Potassium Chloride Carbon Dioxide BUN Creatinine Glucose POC Glucose 155 H 186 H Lactic Acid Calcium Ionized Calcium Phosphorus Magnesium Direct Bilirubin AST ALT Alkaline Phosphatase Lactate Dehydrogenase Troponin T C-Reactive Protein Total Protein Albumin Prealbumin Triglycerides Cholesterol LDL Cholesterol Direct HDL Cholesterol 25-OH Vitamin D Total PTH Intact Urine pH Urine WBC (Auto) 25.0 H Urine Creatinine Urine Total Protein Fluid Total Protein Vancomycin Trough Rheumatoid Factor Complement C4 Miscellaneous Test Crossmatch 09/09/16 09/09/16 09/10/16 17:33 23:13 05:09 WBC RBC Hgb Hct MCV MCH MCHC RDW Plt Count Lymph % (Auto) [place] % (Auto) Lymph # [place] # Baso # Seg Neutrophils % Seg Neuts % (Manual) Lymphocytes % (Manual) Monocytes % (Manual) Eosinophils % (Manual) Basophils % (Manual) Nucleated RBC % Seg Neutrophils # Seg Neutrophils # Man Lymphocytes # (Manual) Monocytes # (Manual) Eosinophils # (Manual) Basophils # (Manual) PT INR Fibrinogen dRVVT Confirm Interp Factor V Activity POC ABG pH POC ABG pCO2 POC ABG pO2 74 L ABG pO2 ABG HCO3 ABG Base Excess ABG Hemoglobin Oxyhemoglobin Sodium Potassium Chloride Carbon Dioxide BUN Creatinine Glucose POC Glucose 211 H 215 H Lactic Acid Calcium Ionized Calcium Phosphorus Magnesium Direct Bilirubin AST ALT Alkaline Phosphatase Lactate Dehydrogenase Troponin T C-Reactive Protein Total Protein Albumin Prealbumin Triglycerides Cholesterol LDL Cholesterol Direct HDL Cholesterol 25-OH Vitamin D Total PTH Intact Urine pH Urine WBC (Auto) Urine Creatinine Urine Total Protein Fluid Total Protein Vancomycin Trough Rheumatoid Factor Complement C4 Miscellaneous Test Crossmatch 09/10/16 09/10/16 09/10/16 05:17 05:17 11:31 WBC 15.8 H RBC 3.25 L Hgb 7.3 L Hct 22.9 L MCV 71 L MCH 23 L MCHC RDW 18.4 H Plt Count Lymph % (Auto) [place] % (Auto) Lymph # [place] # Baso # Seg Neutrophils % Seg Neuts % (Manual) 91.0 H Lymphocytes % (Manual) 4.0 L Monocytes % (Manual) Eosinophils % (Manual) Basophils % (Manual) Nucleated RBC % Seg Neutrophils # Seg Neutrophils # Man 14.4 H Lymphocytes # (Manual) 0.6 L Monocytes # (Manual) Eosinophils # (Manual) Basophils # (Manual) PT INR Fibrinogen dRVVT Confirm Interp Factor V Activity POC ABG pH POC ABG pCO2 POC ABG pO2 ABG pO2 ABG HCO3 ABG Base Excess ABG Hemoglobin Oxyhemoglobin Sodium Potassium Chloride Carbon Dioxide 21 L BUN 93 H Creatinine 2.9 H Glucose 146 H POC Glucose 188 H Lactic Acid Calcium 8.1 L Ionized Calcium Phosphorus Magnesium Direct Bilirubin AST ALT Alkaline Phosphatase Lactate Dehydrogenase Troponin T C-Reactive Protein Total Protein Albumin Prealbumin Triglycerides Cholesterol LDL Cholesterol Direct HDL Cholesterol 25-OH Vitamin D Total PTH Intact Urine pH Urine WBC (Auto) Urine Creatinine Urine Total Protein Fluid Total Protein Vancomycin Trough Rheumatoid Factor Complement C4 Miscellaneous Test Crossmatch 09/10/16 09/10/16 09/10/16 13:17 17:20 23:32 WBC RBC Hgb Hct MCV MCH MCHC RDW Plt Count Lymph % (Auto) [place] % (Auto) Lymph # [place] # Baso # Seg Neutrophils % Seg Neuts % (Manual) Lymphocytes % (Manual) Monocytes % (Manual) Eosinophils % (Manual) Basophils % (Manual) Nucleated RBC % Seg Neutrophils # Seg Neutrophils # Man Lymphocytes # (Manual) Monocytes # (Manual) Eosinophils # (Manual) Basophils # (Manual) PT INR Fibrinogen dRVVT Confirm Interp Factor V Activity POC ABG pH POC ABG pCO2 POC ABG pO2 ABG pO2 ABG HCO3 ABG Base Excess ABG Hemoglobin Oxyhemoglobin Sodium Potassium Chloride Carbon Dioxide BUN Creatinine Glucose POC Glucose 199 H 186 H Lactic Acid Calcium Ionized Calcium Phosphorus Magnesium Direct Bilirubin AST ALT Alkaline Phosphatase Lactate Dehydrogenase Troponin T C-Reactive Protein Total Protein Albumin Prealbumin Triglycerides Cholesterol LDL Cholesterol Direct HDL Cholesterol 25-OH Vitamin D Total PTH Intact Urine pH Urine WBC (Auto) Urine Creatinine Urine Total Protein Fluid Total Protein Vancomycin Trough Rheumatoid Factor Complement C4 Miscellaneous Test Crossmatch See Detail 09/11/16 09/11/16 09/11/16 05:10 05:10 05:17 WBC 28.4 H RBC Hgb 9.2 L Hct 29.3 L D MCV 73 L MCH 23 L MCHC RDW 18.9 H Plt Count 452 H Lymph % (Auto) [place] % (Auto) Lymph # [place] # Baso # Seg Neutrophils % Seg Neuts % (Manual) 89.5 H Lymphocytes % (Manual) 2.0 L Monocytes % (Manual) Eosinophils % (Manual) Basophils % (Manual) Nucleated RBC % Seg Neutrophils # Seg Neutrophils # Man 25.4 H Lymphocytes # (Manual) 0.6 L Monocytes # (Manual) 1.3 H Eosinophils # (Manual) Basophils # (Manual) PT INR Fibrinogen dRVVT Confirm Interp Factor V Activity POC ABG pH POC ABG pCO2 POC ABG pO2 ABG pO2 ABG HCO3 ABG Base Excess ABG Hemoglobin Oxyhemoglobin Sodium 136 L Potassium Chloride Carbon Dioxide 18 L BUN 107 H Creatinine 2.6 H Glucose 187 H POC Glucose 230 H Lactic Acid Calcium 8.3 L Ionized Calcium Phosphorus Magnesium Direct Bilirubin AST ALT Alkaline Phosphatase Lactate Dehydrogenase Troponin T C-Reactive Protein Total Protein Albumin Prealbumin Triglycerides Cholesterol LDL Cholesterol Direct HDL Cholesterol 25-OH Vitamin D Total PTH Intact Urine pH Urine WBC (Auto) Urine Creatinine Urine Total Protein Fluid Total Protein Vancomycin Trough Rheumatoid Factor Complement C4 Miscellaneous Test Crossmatch 09/11/16 09/11/16 09/11/16 05:55 12:02 17:32 WBC RBC Hgb Hct MCV MCH MCHC RDW Plt Count Lymph % (Auto) [place] % (Auto) Lymph # [place] # Baso # Seg Neutrophils % Seg Neuts % (Manual) Lymphocytes % (Manual) Monocytes % (Manual) Eosinophils % (Manual) Basophils % (Manual) Nucleated RBC % Seg Neutrophils # Seg Neutrophils # Man Lymphocytes # (Manual) Monocytes # (Manual) Eosinophils # (Manual) Basophils # (Manual) PT INR Fibrinogen dRVVT Confirm Interp Factor V Activity POC ABG pH POC ABG pCO2 33.8 L POC ABG pO2 ABG pO2 ABG HCO3 ABG Base Excess ABG Hemoglobin Oxyhemoglobin Sodium Potassium Chloride Carbon Dioxide BUN Creatinine Glucose POC Glucose 191 H 239 H Lactic Acid Calcium Ionized Calcium Phosphorus Magnesium Direct Bilirubin AST ALT Alkaline Phosphatase Lactate Dehydrogenase Troponin T C-Reactive Protein Total Protein Albumin Prealbumin Triglycerides Cholesterol LDL Cholesterol Direct HDL Cholesterol 25-OH Vitamin D Total PTH Intact Urine pH Urine WBC (Auto) Urine Creatinine Urine Total Protein Fluid Total Protein Vancomycin Trough Rheumatoid Factor Complement C4 Miscellaneous Test Crossmatch 09/11/16 09/12/16 09/12/16 23:52 05:09 05:32 WBC RBC Hgb Hct MCV MCH MCHC RDW Plt Count Lymph % (Auto) [place] % (Auto) Lymph # [place] # Baso # Seg Neutrophils % Seg Neuts % (Manual) Lymphocytes % (Manual) Monocytes % (Manual) Eosinophils % (Manual) Basophils % (Manual) Nucleated RBC % Seg Neutrophils # Seg Neutrophils # Man Lymphocytes # (Manual) Monocytes # (Manual) Eosinophils # (Manual) Basophils # (Manual) PT INR Fibrinogen dRVVT Confirm Interp Factor V Activity POC ABG pH POC ABG pCO2 34.6 L POC ABG pO2 ABG pO2 ABG HCO3 ABG Base Excess ABG Hemoglobin Oxyhemoglobin Sodium Potassium Chloride Carbon Dioxide BUN Creatinine Glucose POC Glucose 265 H 184 H Lactic Acid Calcium Ionized Calcium Phosphorus Magnesium Direct Bilirubin AST ALT Alkaline Phosphatase Lactate Dehydrogenase Troponin T C-Reactive Protein Total Protein Albumin Prealbumin Triglycerides Cholesterol LDL Cholesterol Direct HDL Cholesterol 25-OH Vitamin D Total PTH Intact Urine pH Urine WBC (Auto) Urine Creatinine Urine Total Protein Fluid Total Protein Vancomycin Trough Rheumatoid Factor Complement C4 Miscellaneous Test Crossmatch 09/12/16 09/12/16 09/12/16 06:45 06:45 07:22 WBC 31.7 H RBC 3.54 L Hgb 8.3 L Hct 25.9 L MCV 73 L MCH 23 L MCHC RDW 18.9 H Plt Count Lymph % (Auto) [place] % (Auto) Lymph # [place] # Baso # Seg Neutrophils % Seg Neuts % (Manual) 88.5 H Lymphocytes % (Manual) 4.5 L Monocytes % (Manual) Eosinophils % (Manual) Basophils % (Manual) Nucleated RBC % Seg Neutrophils # Seg Neutrophils # Man 28.1 H Lymphocytes # (Manual) Monocytes # (Manual) 1.0 H Eosinophils # (Manual) Basophils # (Manual) PT INR Fibrinogen dRVVT Confirm Interp Factor V Activity POC ABG pH POC ABG pCO2 POC ABG pO2 ABG pO2 ABG HCO3 ABG Base Excess ABG Hemoglobin Oxyhemoglobin Sodium Potassium Chloride Carbon Dioxide 20 L BUN 115 H Creatinine 2.7 H Glucose 165 H POC Glucose Lactic Acid Calcium 8.0 L Ionized Calcium Phosphorus Magnesium Direct Bilirubin AST ALT Alkaline Phosphatase Lactate Dehydrogenase Troponin T C-Reactive Protein Total Protein Albumin Prealbumin Triglycerides 217 H Cholesterol LDL Cholesterol Direct HDL Cholesterol 25-OH Vitamin D Total PTH Intact Urine pH Urine WBC (Auto) Urine Creatinine Urine Total Protein Fluid Total Protein Vancomycin Trough Rheumatoid Factor Complement C4 Miscellaneous Test Crossmatch 09/12/16 09/12/16 09/12/16 07:22 09:59 12:21 WBC RBC Hgb Hct MCV MCH MCHC RDW Plt Count Lymph % (Auto) [place] % (Auto) Lymph # [place] # Baso # Seg Neutrophils % Seg Neuts % (Manual) Lymphocytes % (Manual) Monocytes % (Manual) Eosinophils % (Manual) Basophils % (Manual) Nucleated RBC % Seg Neutrophils # Seg Neutrophils # Man Lymphocytes # (Manual) Monocytes # (Manual) Eosinophils # (Manual) Basophils # (Manual) PT INR Fibrinogen dRVVT Confirm Interp Positive H Factor V Activity POC ABG pH POC ABG pCO2 POC ABG pO2 ABG pO2 ABG HCO3 ABG Base Excess ABG Hemoglobin Oxyhemoglobin Sodium Potassium Chloride Carbon Dioxide BUN Creatinine Glucose POC Glucose 224 H Lactic Acid Calcium Ionized Calcium Phosphorus Magnesium Direct Bilirubin AST ALT Alkaline Phosphatase Lactate Dehydrogenase Troponin T C-Reactive Protein 1.70 H Total Protein Albumin Prealbumin Triglycerides Cholesterol LDL Cholesterol Direct HDL Cholesterol 25-OH Vitamin D Total PTH Intact Urine pH Urine WBC (Auto) Urine Creatinine Urine Total Protein Fluid Total Protein Vancomycin Trough Rheumatoid Factor Complement C4 Miscellaneous Test Crossmatch 09/12/16 09/12/16 09/13/16 16:51 23:28 04:00 WBC 45.0 H* RBC Hgb 9.4 L Hct MCV 75 L MCH 23 L MCHC RDW 19.0 H Plt Count 470 H Lymph % (Auto) [place] % (Auto) Lymph # [place] # Baso # Seg Neutrophils % Seg Neuts % (Manual) 89.0 H Lymphocytes % (Manual) 5.0 L Monocytes % (Manual) Eosinophils % (Manual) Basophils % (Manual) Nucleated RBC % Seg Neutrophils # Seg Neutrophils # Man 40.1 H Lymphocytes # (Manual) Monocytes # (Manual) Eosinophils # (Manual) Basophils # (Manual) PT INR Fibrinogen dRVVT Confirm Interp Factor V Activity POC ABG pH POC ABG pCO2 POC ABG pO2 ABG pO2 ABG HCO3 ABG Base Excess ABG Hemoglobin Oxyhemoglobin Sodium Potassium Chloride Carbon Dioxide BUN Creatinine Glucose POC Glucose 169 H 150 H Lactic Acid Calcium Ionized Calcium Phosphorus Magnesium Direct Bilirubin AST ALT Alkaline Phosphatase Lactate Dehydrogenase Troponin T C-Reactive Protein Total Protein Albumin Prealbumin Triglycerides Cholesterol LDL Cholesterol Direct HDL Cholesterol 25-OH Vitamin D Total PTH Intact Urine pH Urine WBC (Auto) Urine Creatinine Urine Total Protein Fluid Total Protein Vancomycin Trough Rheumatoid Factor Complement C4 Miscellaneous Test Crossmatch 09/13/16 09/13/16 09/13/16 04:00 11:26 17:31 WBC RBC Hgb Hct MCV MCH MCHC RDW Plt Count Lymph % (Auto) [place] % (Auto) Lymph # [place] # Baso # Seg Neutrophils % Seg Neuts % (Manual) Lymphocytes % (Manual) Monocytes % (Manual) Eosinophils % (Manual) Basophils % (Manual) Nucleated RBC % Seg Neutrophils # Seg Neutrophils # Man Lymphocytes # (Manual) Monocytes # (Manual) Eosinophils # (Manual) Basophils # (Manual) PT INR Fibrinogen dRVVT Confirm Interp Factor V Activity POC ABG pH POC ABG pCO2 POC ABG pO2 ABG pO2 ABG HCO3 ABG Base Excess ABG Hemoglobin Oxyhemoglobin Sodium Potassium Chloride Carbon Dioxide 20 L BUN 116 H Creatinine 3.0 H Glucose 172 H POC Glucose 140 H 183 H Lactic Acid Calcium Ionized Calcium Phosphorus Magnesium Direct Bilirubin AST ALT Alkaline Phosphatase Lactate Dehydrogenase Troponin T C-Reactive Protein Total Protein 6.2 L Albumin 2.9 L Prealbumin Triglycerides Cholesterol LDL Cholesterol Direct HDL Cholesterol 25-OH Vitamin D Total PTH Intact Urine pH Urine WBC (Auto) Urine Creatinine Urine Total Protein Fluid Total Protein Vancomycin Trough Rheumatoid Factor Complement C4 Miscellaneous Test Crossmatch 09/13/16 09/14/16 09/14/16 23:23 04:06 04:07 WBC 29.4 H RBC Hgb 8.9 L Hct 27.3 L MCV 75 L MCH 24 L MCHC RDW 19.1 H Plt Count Lymph % (Auto) [place] % (Auto) Lymph # [place] # Baso # Seg Neutrophils % Seg Neuts % (Manual) 84.0 H Lymphocytes % (Manual) 6.0 L Monocytes % (Manual) 9.0 H Eosinophils % (Manual) Basophils % (Manual) Nucleated RBC % Seg Neutrophils # Seg Neutrophils # Man 24.7 H Lymphocytes # (Manual) Monocytes # (Manual) 2.6 H Eosinophils # (Manual) Basophils # (Manual) PT INR Fibrinogen dRVVT Confirm Interp Factor V Activity POC ABG pH 7.342 L POC ABG pCO2 POC ABG pO2 116 H ABG pO2 ABG HCO3 ABG Base Excess ABG Hemoglobin Oxyhemoglobin Sodium Potassium Chloride Carbon Dioxide BUN Creatinine Glucose POC Glucose 154 H Lactic Acid Calcium Ionized Calcium Phosphorus Magnesium Direct Bilirubin AST ALT Alkaline Phosphatase Lactate Dehydrogenase Troponin T C-Reactive Protein Total Protein Albumin Prealbumin Triglycerides Cholesterol LDL Cholesterol Direct HDL Cholesterol 25-OH Vitamin D Total PTH Intact Urine pH Urine WBC (Auto) Urine Creatinine Urine Total Protein Fluid Total Protein Vancomycin Trough Rheumatoid Factor Complement C4 Miscellaneous Test Crossmatch 09/14/16 09/14/16 09/14/16 04:07 05:29 12:19 WBC RBC Hgb Hct MCV MCH MCHC RDW Plt Count Lymph % (Auto) [place] % (Auto) Lymph # [place] # Baso # Seg Neutrophils % Seg Neuts % (Manual) Lymphocytes % (Manual) Monocytes % (Manual) Eosinophils % (Manual) Basophils % (Manual) Nucleated RBC % Seg Neutrophils # Seg Neutrophils # Man Lymphocytes # (Manual) Monocytes # (Manual) Eosinophils # (Manual) Basophils # (Manual) PT INR Fibrinogen dRVVT Confirm Interp Factor V Activity POC ABG pH POC ABG pCO2 POC ABG pO2 ABG pO2 ABG HCO3 ABG Base Excess ABG Hemoglobin Oxyhemoglobin Sodium 136 L Potassium Chloride Carbon Dioxide 18 L BUN 121 H Creatinine 2.8 H Glucose 214 H POC Glucose 239 H 181 H Lactic Acid Calcium Ionized Calcium Phosphorus Magnesium Direct Bilirubin AST ALT Alkaline Phosphatase Lactate Dehydrogenase Troponin T C-Reactive Protein Total Protein Albumin Prealbumin Triglycerides Cholesterol LDL Cholesterol Direct HDL Cholesterol 25-OH Vitamin D Total PTH Intact Urine pH Urine WBC (Auto) Urine Creatinine Urine Total Protein Fluid Total Protein Vancomycin Trough Rheumatoid Factor Complement C4 Miscellaneous Test Crossmatch 09/14/16 09/14/16 09/15/16 18:12 23:37 05:00 WBC 26.1 H RBC 3.05 L Hgb 7.2 L Hct 22.9 L MCV 75 L MCH 24 L MCHC RDW 19.0 H Plt Count Lymph % (Auto) [place] % (Auto) Lymph # [place] # Baso # Seg Neutrophils % Seg Neuts % (Manual) Lymphocytes % (Manual) Monocytes % (Manual) Eosinophils % (Manual) Basophils % (Manual) Nucleated RBC % Seg Neutrophils # Seg Neutrophils # Man Lymphocytes # (Manual) Monocytes # (Manual) Eosinophils # (Manual) Basophils # (Manual) PT INR Fibrinogen dRVVT Confirm Interp Factor V Activity POC ABG pH POC ABG pCO2 POC ABG pO2 ABG pO2 ABG HCO3 ABG Base Excess ABG Hemoglobin Oxyhemoglobin Sodium Potassium Chloride Carbon Dioxide BUN Creatinine Glucose POC Glucose 266 H 154 H Lactic Acid Calcium Ionized Calcium Phosphorus Magnesium Direct Bilirubin AST ALT Alkaline Phosphatase Lactate Dehydrogenase Troponin T C-Reactive Protein Total Protein Albumin Prealbumin Triglycerides Cholesterol LDL Cholesterol Direct HDL Cholesterol 25-OH Vitamin D Total PTH Intact Urine pH Urine WBC (Auto) Urine Creatinine Urine Total Protein Fluid Total Protein Vancomycin Trough Rheumatoid Factor Complement C4 Miscellaneous Test Crossmatch 09/15/16 09/15/16 09/15/16 05:00 05:17 12:45 WBC RBC Hgb Hct MCV MCH MCHC RDW Plt Count Lymph % (Auto) [place] % (Auto) Lymph # [place] # Baso # Seg Neutrophils % Seg Neuts % (Manual) Lymphocytes % (Manual) Monocytes % (Manual) Eosinophils % (Manual) Basophils % (Manual) Nucleated RBC % Seg Neutrophils # Seg Neutrophils # Man Lymphocytes # (Manual) Monocytes # (Manual) Eosinophils # (Manual) Basophils # (Manual) PT INR Fibrinogen dRVVT Confirm Interp Factor V Activity POC ABG pH POC ABG pCO2 POC ABG pO2 ABG pO2 ABG HCO3 ABG Base Excess ABG Hemoglobin Oxyhemoglobin Sodium Potassium 5.2 H Chloride Carbon Dioxide 18 L BUN 139 H Creatinine 3.7 H Glucose 227 H POC Glucose 226 H 244 H Lactic Acid Calcium 8.3 L Ionized Calcium Phosphorus Magnesium Direct Bilirubin AST ALT Alkaline Phosphatase Lactate Dehydrogenase Troponin T C-Reactive Protein Total Protein Albumin Prealbumin Triglycerides Cholesterol LDL Cholesterol Direct HDL Cholesterol 25-OH Vitamin D Total PTH Intact Urine pH Urine WBC (Auto) Urine Creatinine Urine Total Protein Fluid Total Protein Vancomycin Trough Rheumatoid Factor Complement C4 Miscellaneous Test Crossmatch 09/15/16 09/15/16 09/15/16 14:32 17:33 23:35 WBC RBC Hgb Hct MCV MCH MCHC RDW Plt Count Lymph % (Auto) [place] % (Auto) Lymph # [place] # Baso # Seg Neutrophils % Seg Neuts % (Manual) Lymphocytes % (Manual) Monocytes % (Manual) Eosinophils % (Manual) Basophils % (Manual) Nucleated RBC % Seg Neutrophils # Seg Neutrophils # Man Lymphocytes # (Manual) Monocytes # (Manual) Eosinophils # (Manual) Basophils # (Manual) PT INR Fibrinogen dRVVT Confirm Interp Factor V Activity POC ABG pH POC ABG pCO2 27.7 L POC ABG pO2 120 H ABG pO2 ABG HCO3 ABG Base Excess ABG Hemoglobin Oxyhemoglobin Sodium Potassium Chloride Carbon Dioxide BUN Creatinine Glucose POC Glucose 232 H 167 H Lactic Acid Calcium Ionized Calcium Phosphorus Magnesium Direct Bilirubin AST ALT Alkaline Phosphatase Lactate Dehydrogenase Troponin T C-Reactive Protein Total Protein Albumin Prealbumin Triglycerides Cholesterol LDL Cholesterol Direct HDL Cholesterol 25-OH Vitamin D Total PTH Intact Urine pH Urine WBC (Auto) Urine Creatinine Urine Total Protein Fluid Total Protein Vancomycin Trough Rheumatoid Factor Complement C4 Miscellaneous Test Crossmatch 09/16/16 09/16/16 09/16/16 03:58 10:27 10:27 WBC 19.0 H RBC 2.77 L Hgb 6.5 L Hct 20.9 L MCV 76 L MCH 23 L MCHC RDW 19.3 H Plt Count Lymph % (Auto) 11.0 L [place] % (Auto) Lymph # [place] # 1.1 H Baso # Seg Neutrophils % 82.5 H Seg Neuts % (Manual) Lymphocytes % (Manual) Monocytes % (Manual) Eosinophils % (Manual) Basophils % (Manual) Nucleated RBC % Seg Neutrophils # 15.7 H Seg Neutrophils # Man Lymphocytes # (Manual) Monocytes # (Manual) Eosinophils # (Manual) Basophils # (Manual) PT INR Fibrinogen dRVVT Confirm Interp Factor V Activity POC ABG pH POC ABG pCO2 POC ABG pO2 ABG pO2 ABG HCO3 ABG Base Excess ABG Hemoglobin Oxyhemoglobin Sodium Potassium Chloride 109.3 H Carbon Dioxide 18 L BUN 139 H Creatinine 4.1 H Glucose 144 H POC Glucose 146 H Lactic Acid Calcium 8.1 L Ionized Calcium Phosphorus Magnesium Direct Bilirubin AST ALT Alkaline Phosphatase Lactate Dehydrogenase Troponin T C-Reactive Protein Total Protein Albumin Prealbumin Triglycerides Cholesterol LDL Cholesterol Direct HDL Cholesterol 25-OH Vitamin D Total PTH Intact Urine pH Urine WBC (Auto) Urine Creatinine Urine Total Protein Fluid Total Protein Vancomycin Trough Rheumatoid Factor Complement C4 Miscellaneous Test Crossmatch 09/16/16 09/16/16 09/16/16 12:04 12:10 13:55 WBC RBC Hgb Hct MCV MCH MCHC RDW Plt Count Lymph % (Auto) [place] % (Auto) Lymph # [place] # Baso # Seg Neutrophils % Seg Neuts % (Manual) Lymphocytes % (Manual) Monocytes % (Manual) Eosinophils % (Manual) Basophils % (Manual) Nucleated RBC % Seg Neutrophils # Seg Neutrophils # Man Lymphocytes # (Manual) Monocytes # (Manual) Eosinophils # (Manual) Basophils # (Manual) PT INR Fibrinogen dRVVT Confirm Interp Factor V Activity POC ABG pH POC ABG pCO2 32.9 L POC ABG pO2 ABG pO2 ABG HCO3 ABG Base Excess ABG Hemoglobin Oxyhemoglobin Sodium Potassium Chloride Carbon Dioxide BUN Creatinine Glucose POC Glucose 185 H Lactic Acid Calcium Ionized Calcium Phosphorus Magnesium Direct Bilirubin AST ALT Alkaline Phosphatase Lactate Dehydrogenase Troponin T C-Reactive Protein Total Protein Albumin Prealbumin Triglycerides Cholesterol LDL Cholesterol Direct HDL Cholesterol 25-OH Vitamin D Total PTH Intact Urine pH Urine WBC (Auto) Urine Creatinine Urine Total Protein Fluid Total Protein Vancomycin Trough Rheumatoid Factor Complement C4 Miscellaneous Test Crossmatch See Detail 09/16/16 09/16/16 09/16/16 17:55 19:19 23:48 WBC RBC Hgb Hct MCV MCH MCHC RDW Plt Count Lymph % (Auto) [place] % (Auto) Lymph # [place] # Baso # Seg Neutrophils % Seg Neuts % (Manual) Lymphocytes % (Manual) Monocytes % (Manual) Eosinophils % (Manual) Basophils % (Manual) Nucleated RBC % Seg Neutrophils # Seg Neutrophils # Man Lymphocytes # (Manual) Monocytes # (Manual) Eosinophils # (Manual) Basophils # (Manual) PT INR Fibrinogen dRVVT Confirm Interp Factor V Activity POC ABG pH POC ABG pCO2 POC ABG pO2 ABG pO2 ABG HCO3 ABG Base Excess ABG Hemoglobin Oxyhemoglobin Sodium Potassium Chloride Carbon Dioxide BUN Creatinine Glucose POC Glucose 222 H 107 H Lactic Acid Calcium Ionized Calcium Phosphorus Magnesium Direct Bilirubin AST ALT Alkaline Phosphatase Lactate Dehydrogenase Troponin T C-Reactive Protein Total Protein Albumin Prealbumin Triglycerides Cholesterol LDL Cholesterol Direct HDL Cholesterol 25-OH Vitamin D Total PTH Intact Urine pH Urine WBC (Auto) Urine Creatinine 47.4 H Urine Total Protein 16 H Fluid Total Protein Vancomycin Trough Rheumatoid Factor Complement C4 Miscellaneous Test Crossmatch 09/17/16 09/17/16 09/17/16 03:45 03:45 04:55 WBC 19.6 H RBC 3.41 L Hgb 8.5 L Hct 26.7 L MCV 78 L MCH 25 L MCHC RDW 19.9 H Plt Count Lymph % (Auto) 9.3 L [place] % (Auto) Lymph # [place] # 1.2 H Baso # Seg Neutrophils % 83.9 H Seg Neuts % (Manual) Lymphocytes % (Manual) Monocytes % (Manual) Eosinophils % (Manual) Basophils % (Manual) Nucleated RBC % Seg Neutrophils # 16.4 H Seg Neutrophils # Man Lymphocytes # (Manual) Monocytes # (Manual) Eosinophils # (Manual) Basophils # (Manual) PT INR Fibrinogen dRVVT Confirm Interp Factor V Activity POC ABG pH POC ABG pCO2 POC ABG pO2 ABG pO2 ABG HCO3 ABG Base Excess ABG Hemoglobin Oxyhemoglobin Sodium 146 H Potassium 5.1 H Chloride 110.9 H Carbon Dioxide 16 L BUN 146 H Creatinine 4.0 H Glucose 108 H POC Glucose 133 H Lactic Acid Calcium Ionized Calcium Phosphorus Magnesium 3.00 H Direct Bilirubin AST ALT Alkaline Phosphatase Lactate Dehydrogenase Troponin T C-Reactive Protein Total Protein Albumin Prealbumin Triglycerides Cholesterol LDL Cholesterol Direct HDL Cholesterol 25-OH Vitamin D Total PTH Intact Urine pH Urine WBC (Auto) Urine Creatinine Urine Total Protein Fluid Total Protein Vancomycin Trough Rheumatoid Factor Complement C4 Miscellaneous Test Crossmatch 09/17/16 09/17/16 09/17/16 11:15 17:33 23:47 WBC RBC Hgb Hct MCV MCH MCHC RDW Plt Count Lymph % (Auto) [place] % (Auto) Lymph # [place] # Baso # Seg Neutrophils % Seg Neuts % (Manual) Lymphocytes % (Manual) Monocytes % (Manual) Eosinophils % (Manual) Basophils % (Manual) Nucleated RBC % Seg Neutrophils # Seg Neutrophils # Man Lymphocytes # (Manual) Monocytes # (Manual) Eosinophils # (Manual) Basophils # (Manual) PT INR Fibrinogen dRVVT Confirm Interp Factor V Activity POC ABG pH POC ABG pCO2 POC ABG pO2 ABG pO2 ABG HCO3 ABG Base Excess ABG Hemoglobin Oxyhemoglobin Sodium Potassium Chloride Carbon Dioxide BUN Creatinine Glucose POC Glucose 176 H 246 H 148 H Lactic Acid Calcium Ionized Calcium Phosphorus Magnesium Direct Bilirubin AST ALT Alkaline Phosphatase Lactate Dehydrogenase Troponin T C-Reactive Protein Total Protein Albumin Prealbumin Triglycerides Cholesterol LDL Cholesterol Direct HDL Cholesterol 25-OH Vitamin D Total PTH Intact Urine pH Urine WBC (Auto) Urine Creatinine Urine Total Protein Fluid Total Protein Vancomycin Trough Rheumatoid Factor Complement C4 Miscellaneous Test Crossmatch 09/18/16 09/18/16 09/18/16 05:33 08:31 08:31 WBC 18.0 H RBC 3.17 L Hgb 9.0 L Hct 25.7 L MCV MCH MCHC 35 H RDW 20.4 H Plt Count Lymph % (Auto) [place] % (Auto) Lymph # [place] # Baso # Seg Neutrophils % Seg Neuts % (Manual) Lymphocytes % (Manual) Monocytes % (Manual) Eosinophils % (Manual) Basophils % (Manual) Nucleated RBC % Seg Neutrophils # Seg Neutrophils # Man Lymphocytes # (Manual) Monocytes # (Manual) Eosinophils # (Manual) Basophils # (Manual) PT INR Fibrinogen dRVVT Confirm Interp Factor V Activity POC ABG pH POC ABG pCO2 POC ABG pO2 ABG pO2 ABG HCO3 ABG Base Excess ABG Hemoglobin Oxyhemoglobin Sodium Potassium Chloride Carbon Dioxide 15 L BUN 124 H Creatinine 3.8 H Glucose POC Glucose 120 H Lactic Acid Calcium 8.1 L Ionized Calcium Phosphorus Magnesium Direct Bilirubin AST ALT Alkaline Phosphatase Lactate Dehydrogenase Troponin T C-Reactive Protein Total Protein Albumin Prealbumin Triglycerides Cholesterol LDL Cholesterol Direct HDL Cholesterol 25-OH Vitamin D Total PTH Intact Urine pH Urine WBC (Auto) Urine Creatinine Urine Total Protein Fluid Total Protein Vancomycin Trough Rheumatoid Factor Complement C4 Miscellaneous Test Crossmatch 09/18/16 09/18/16 09/18/16 12:03 15:34 17:50 WBC RBC Hgb Hct MCV MCH MCHC RDW Plt Count Lymph % (Auto) [place] % (Auto) Lymph # [place] # Baso # Seg Neutrophils % Seg Neuts % (Manual) Lymphocytes % (Manual) Monocytes % (Manual) Eosinophils % (Manual) Basophils % (Manual) Nucleated RBC % Seg Neutrophils # Seg Neutrophils # Man Lymphocytes # (Manual) Monocytes # (Manual) Eosinophils # (Manual) Basophils # (Manual) PT INR Fibrinogen dRVVT Confirm Interp Factor V Activity POC ABG pH POC ABG pCO2 25.7 L POC ABG pO2 66 L ABG pO2 ABG HCO3 ABG Base Excess ABG Hemoglobin Oxyhemoglobin Sodium Potassium Chloride Carbon Dioxide BUN Creatinine Glucose POC Glucose 156 H 220 H Lactic Acid Calcium Ionized Calcium Phosphorus Magnesium Direct Bilirubin AST ALT Alkaline Phosphatase Lactate Dehydrogenase Troponin T C-Reactive Protein Total Protein Albumin Prealbumin Triglycerides Cholesterol LDL Cholesterol Direct HDL Cholesterol 25-OH Vitamin D Total PTH Intact Urine pH Urine WBC (Auto) Urine Creatinine Urine Total Protein Fluid Total Protein Vancomycin Trough Rheumatoid Factor Complement C4 Miscellaneous Test Crossmatch 0709/[id number] 09/19/16 06:21 09:50 09:50 WBC 17.1 H RBC 3.49 L Hgb 9.0 L Hct 28.1 L MCV MCH 26 L MCHC RDW 20.8 H Plt Count Lymph % (Auto) 11.5 L [place] % (Auto) 7.5 H Lymph # [place] # 1.3 H Baso # Seg Neutrophils % 79.8 H Seg Neuts % (Manual) Lymphocytes % (Manual) Monocytes % (Manual) Eosinophils % (Manual) Basophils % (Manual) Nucleated RBC % Seg Neutrophils # 13.7 H Seg Neutrophils # Man Lymphocytes # (Manual) Monocytes # (Manual) Eosinophils # (Manual) Basophils # (Manual) PT INR Fibrinogen dRVVT Confirm Interp Factor V Activity POC ABG pH POC ABG pCO2 POC ABG pO2 ABG pO2 ABG HCO3 ABG Base Excess ABG Hemoglobin Oxyhemoglobin Sodium Potassium Chloride 108.6 H Carbon Dioxide 15 L BUN 125 H Creatinine 4.1 H Glucose 124 H POC Glucose 119 H Lactic Acid Calcium Ionized Calcium Phosphorus Magnesium Direct Bilirubin AST ALT Alkaline Phosphatase Lactate Dehydrogenase Troponin T C-Reactive Protein Total Protein Albumin Prealbumin Triglycerides Cholesterol LDL Cholesterol Direct HDL Cholesterol 25-OH Vitamin D Total PTH Intact Urine pH Urine WBC (Auto) Urine Creatinine Urine Total Protein Fluid Total Protein Vancomycin Trough Rheumatoid Factor Complement C4 Miscellaneous Test Crossmatch 09/19/16 09/19/16 09/19/16 11:25 17:53 23:36 WBC RBC Hgb Hct MCV MCH MCHC RDW Plt Count Lymph % (Auto) [place] % (Auto) Lymph # [place] # Baso # Seg Neutrophils % Seg Neuts % (Manual) Lymphocytes % (Manual) Monocytes % (Manual) Eosinophils % (Manual) Basophils % (Manual) Nucleated RBC % Seg Neutrophils # Seg Neutrophils # Man Lymphocytes # (Manual) Monocytes # (Manual) Eosinophils # (Manual) Basophils # (Manual) PT INR Fibrinogen dRVVT Confirm Interp Factor V Activity POC ABG pH POC ABG pCO2 POC ABG pO2 ABG pO2 ABG HCO3 ABG Base Excess ABG Hemoglobin Oxyhemoglobin Sodium Potassium Chloride Carbon Dioxide BUN Creatinine Glucose POC Glucose 160 H 245 H 121 H Lactic Acid Calcium Ionized Calcium Phosphorus Magnesium Direct Bilirubin AST ALT Alkaline Phosphatase Lactate Dehydrogenase Troponin T C-Reactive Protein Total Protein Albumin Prealbumin Triglycerides Cholesterol LDL Cholesterol Direct HDL Cholesterol 25-OH Vitamin D Total PTH Intact Urine pH Urine WBC (Auto) Urine Creatinine Urine Total Protein Fluid Total Protein Vancomycin Trough Rheumatoid Factor Complement C4 Miscellaneous Test Crossmatch 09/20/16 09/20/16 09/20/16 04:10 04:10 04:10 WBC 17.0 H RBC 3.21 L Hgb 8.2 L Hct 25.5 L MCV MCH 26 L MCHC RDW 20.9 H Plt Count Lymph % (Auto) [place] % (Auto) Lymph # [place] # Baso # Seg Neutrophils % Seg Neuts % (Manual) Lymphocytes % (Manual) Monocytes % (Manual) Eosinophils % (Manual) Basophils % (Manual) Nucleated RBC % Seg Neutrophils # Seg Neutrophils # Man Lymphocytes # (Manual) Monocytes # (Manual) Eosinophils # (Manual) Basophils # (Manual) PT INR Fibrinogen dRVVT Confirm Interp Factor V Activity POC ABG pH POC ABG pCO2 POC ABG pO2 ABG pO2 ABG HCO3 ABG Base Excess ABG Hemoglobin Oxyhemoglobin Sodium Potassium Chloride 111.0 H Carbon Dioxide 16 L BUN 129 H Creatinine 3.7 H Glucose 115 H POC Glucose Lactic Acid Calcium 8.2 L Ionized Calcium Phosphorus Magnesium Direct Bilirubin AST ALT Alkaline Phosphatase Lactate Dehydrogenase Troponin T C-Reactive Protein Total Protein Albumin Prealbumin Triglycerides 243 H Cholesterol LDL Cholesterol Direct HDL Cholesterol 25-OH Vitamin D Total PTH Intact Urine pH Urine WBC (Auto) Urine Creatinine Urine Total Protein Fluid Total Protein Vancomycin Trough Rheumatoid Factor Complement C4 Miscellaneous Test Crossmatch 09/20/16 09/20/16 09/20/16 05:40 11:52 16:50 WBC RBC Hgb Hct MCV MCH MCHC RDW Plt Count Lymph % (Auto) [place] % (Auto) Lymph # [place] # Baso # Seg Neutrophils % Seg Neuts % (Manual) Lymphocytes % (Manual) Monocytes % (Manual) Eosinophils % (Manual) Basophils % (Manual) Nucleated RBC % Seg Neutrophils # Seg Neutrophils # Man Lymphocytes # (Manual) Monocytes # (Manual) Eosinophils # (Manual) Basophils # (Manual) PT INR Fibrinogen dRVVT Confirm Interp Factor V Activity POC ABG pH POC ABG pCO2 POC ABG pO2 ABG pO2 ABG HCO3 ABG Base Excess ABG Hemoglobin Oxyhemoglobin Sodium Potassium Chloride Carbon Dioxide BUN Creatinine Glucose POC Glucose 131 H 183 H 236 H Lactic Acid Calcium Ionized Calcium Phosphorus Magnesium Direct Bilirubin AST ALT Alkaline Phosphatase Lactate Dehydrogenase Troponin T C-Reactive Protein Total Protein Albumin Prealbumin Triglycerides Cholesterol LDL Cholesterol Direct HDL Cholesterol 25-OH Vitamin D Total PTH Intact Urine pH Urine WBC (Auto) Urine Creatinine Urine Total Protein Fluid Total Protein Vancomycin Trough Rheumatoid Factor Complement C4 Miscellaneous Test Crossmatch 09/20/16 09/21/16 09/21/16 23:51 03:30 04:44 WBC RBC Hgb Hct MCV MCH MCHC RDW Plt Count Lymph % (Auto) [place] % (Auto) Lymph # [place] # Baso # Seg Neutrophils % Seg Neuts % (Manual) Lymphocytes % (Manual) Monocytes % (Manual) Eosinophils % (Manual) Basophils % (Manual) Nucleated RBC % Seg Neutrophils # Seg Neutrophils # Man Lymphocytes # (Manual) Monocytes # (Manual) Eosinophils # (Manual) Basophils # (Manual) PT INR Fibrinogen dRVVT Confirm Interp Factor V Activity POC ABG pH POC ABG pCO2 POC ABG pO2 ABG pO2 ABG HCO3 ABG Base Excess ABG Hemoglobin Oxyhemoglobin Sodium Potassium Chloride Carbon Dioxide BUN Creatinine Glucose POC Glucose 114 H 141 H Lactic Acid Calcium Ionized Calcium Phosphorus Magnesium 2.70 H Direct Bilirubin AST ALT Alkaline Phosphatase Lactate Dehydrogenase Troponin T C-Reactive Protein Total Protein Albumin Prealbumin Triglycerides Cholesterol LDL Cholesterol Direct HDL Cholesterol 25-OH Vitamin D Total PTH Intact Urine pH Urine WBC (Auto) Urine Creatinine Urine Total Protein Fluid Total Protein Vancomycin Trough Rheumatoid Factor Complement C4 Miscellaneous Test Crossmatch 09/21/16 09/21/16 09/21/16 07:45 07:45 10:01 WBC 13.8 H RBC 2.94 L Hgb 7.5 L Hct 23.5 L MCV MCH 26 L MCHC RDW 21.2 H Plt Count Lymph % (Auto) 6.9 L [place] % (Auto) 9.4 H Lymph # 0.9 L [place] # 1.3 H Baso # Seg Neutrophils % 83.2 H Seg Neuts % (Manual) Lymphocytes % (Manual) Monocytes % (Manual) Eosinophils % (Manual) Basophils % (Manual) Nucleated RBC % Seg Neutrophils # 11.5 H Seg Neutrophils # Man Lymphocytes # (Manual) Monocytes # (Manual) Eosinophils # (Manual) Basophils # (Manual) PT INR Fibrinogen dRVVT Confirm Interp Factor V Activity POC ABG pH 7.308 L POC ABG pCO2 31.9 L POC ABG pO2 148 H ABG pO2 ABG HCO3 ABG Base Excess ABG Hemoglobin Oxyhemoglobin Sodium 147 H Potassium Chloride 114.2 H Carbon Dioxide 15 L BUN 120 H Creatinine 3.9 H Glucose 156 H POC Glucose Lactic Acid Calcium 8.2 L Ionized Calcium Phosphorus Magnesium Direct Bilirubin AST ALT Alkaline Phosphatase Lactate Dehydrogenase Troponin T C-Reactive Protein Total Protein Albumin Prealbumin Triglycerides Cholesterol LDL Cholesterol Direct HDL Cholesterol 25-OH Vitamin D Total PTH Intact Urine pH Urine WBC (Auto) Urine Creatinine Urine Total Protein Fluid Total Protein Vancomycin Trough Rheumatoid Factor Complement C4 Miscellaneous Test Crossmatch 09/21/16 09/21/16 09/21/16 12:00 12:03 13:00 WBC RBC Hgb Hct MCV MCH MCHC RDW Plt Count Lymph % (Auto) [place] % (Auto) Lymph # [place] # Baso # Seg Neutrophils % Seg Neuts % (Manual) Lymphocytes % (Manual) Monocytes % (Manual) Eosinophils % (Manual) Basophils % (Manual) Nucleated RBC % Seg Neutrophils # Seg Neutrophils # Man Lymphocytes # (Manual) Monocytes # (Manual) Eosinophils # (Manual) Basophils # (Manual) PT INR Fibrinogen dRVVT Confirm Interp Factor V Activity POC ABG pH POC ABG pCO2 POC ABG pO2 ABG pO2 ABG HCO3 ABG Base Excess ABG Hemoglobin Oxyhemoglobin Sodium Potassium Chloride Carbon Dioxide BUN Creatinine Glucose POC Glucose 163 H Lactic Acid Calcium Ionized Calcium Phosphorus Magnesium Direct Bilirubin AST ALT Alkaline Phosphatase Lactate Dehydrogenase Troponin T C-Reactive Protein Total Protein Albumin Prealbumin Triglycerides Cholesterol LDL Cholesterol Direct HDL Cholesterol 25-OH Vitamin D Total PTH Intact Urine pH Urine WBC (Auto) Urine Creatinine 54.8 H Urine Total Protein Fluid Total Protein Vancomycin Trough 2.3 L Rheumatoid Factor Complement C4 Miscellaneous Test Crossmatch 09/21/16 09/21/16 09/22/16 16:51 23:17 06:27 WBC RBC Hgb Hct MCV MCH MCHC RDW Plt Count Lymph % (Auto) [place] % (Auto) Lymph # [place] # Baso # Seg Neutrophils % Seg Neuts % (Manual) Lymphocytes % (Manual) Monocytes % (Manual) Eosinophils % (Manual) Basophils % (Manual) Nucleated RBC % Seg Neutrophils # Seg Neutrophils # Man Lymphocytes # (Manual) Monocytes # (Manual) Eosinophils # (Manual) Basophils # (Manual) PT INR Fibrinogen dRVVT Confirm Interp Factor V Activity POC ABG pH POC ABG pCO2 POC ABG pO2 ABG pO2 ABG HCO3 ABG Base Excess ABG Hemoglobin Oxyhemoglobin Sodium Potassium Chloride Carbon Dioxide BUN Creatinine Glucose POC Glucose 206 H 114 H 115 H Lactic Acid Calcium Ionized Calcium Phosphorus Magnesium Direct Bilirubin AST ALT Alkaline Phosphatase Lactate Dehydrogenase Troponin T C-Reactive Protein Total Protein Albumin Prealbumin Triglycerides Cholesterol LDL Cholesterol Direct HDL Cholesterol 25-OH Vitamin D Total PTH Intact Urine pH Urine WBC (Auto) Urine Creatinine Urine Total Protein Fluid Total Protein Vancomycin Trough Rheumatoid Factor Complement C4 Miscellaneous Test Crossmatch 09/22/16 09/22/16 09/22/16 07:50 07:50 12:00 WBC 17.8 H RBC 3.04 L Hgb 8.0 L Hct 24.7 L MCV MCH 26 L MCHC RDW 21.6 H Plt Count Lymph % (Auto) [place] % (Auto) Lymph # [place] # Baso # Seg Neutrophils % Seg Neuts % (Manual) Lymphocytes % (Manual) Monocytes % (Manual) Eosinophils % (Manual) Basophils % (Manual) Nucleated RBC % Seg Neutrophils # Seg Neutrophils # Man Lymphocytes # (Manual) Monocytes # (Manual) Eosinophils # (Manual) Basophils # (Manual) PT INR Fibrinogen dRVVT Confirm Interp Factor V Activity POC ABG pH POC ABG pCO2 POC ABG pO2 ABG pO2 ABG HCO3 ABG Base Excess ABG Hemoglobin Oxyhemoglobin Sodium 150 H Potassium Chloride 118.2 H Carbon Dioxide 14 L BUN 111 H Creatinine 3.7 H Glucose 157 H POC Glucose 183 H Lactic Acid Calcium Ionized Calcium Phosphorus Magnesium Direct Bilirubin AST ALT Alkaline Phosphatase Lactate Dehydrogenase Troponin T C-Reactive Protein Total Protein Albumin Prealbumin Triglycerides Cholesterol LDL Cholesterol Direct HDL Cholesterol 25-OH Vitamin D Total PTH Intact Urine pH Urine WBC (Auto) Urine Creatinine Urine Total Protein Fluid Total Protein Vancomycin Trough Rheumatoid Factor Complement C4 Miscellaneous Test Crossmatch 09/22/16 09/22/16 09/23/16 17:29 23:10 05:00 WBC 19.2 H RBC 3.13 L Hgb 8.0 L Hct 25.2 L MCV MCH 26 L MCHC RDW 22.1 H Plt Count Lymph % (Auto) [place] % (Auto) Lymph # [place] # Baso # Seg Neutrophils % Seg Neuts % (Manual) 92.0 H Lymphocytes % (Manual) 3.0 L Monocytes % (Manual) Eosinophils % (Manual) Basophils % (Manual) Nucleated RBC % Seg Neutrophils # Seg Neutrophils # Man 17.7 H Lymphocytes # (Manual) 0.6 L Monocytes # (Manual) Eosinophils # (Manual) Basophils # (Manual) PT INR Fibrinogen dRVVT Confirm Interp Factor V Activity POC ABG pH POC ABG pCO2 POC ABG pO2 ABG pO2 ABG HCO3 ABG Base Excess ABG Hemoglobin Oxyhemoglobin Sodium Potassium Chloride Carbon Dioxide BUN Creatinine Glucose POC Glucose 197 H 169 H Lactic Acid Calcium Ionized Calcium Phosphorus Magnesium Direct Bilirubin AST ALT Alkaline Phosphatase Lactate Dehydrogenase Troponin T C-Reactive Protein Total Protein Albumin Prealbumin Triglycerides Cholesterol LDL Cholesterol Direct HDL Cholesterol 25-OH Vitamin D Total PTH Intact Urine pH Urine WBC (Auto) Urine Creatinine Urine Total Protein Fluid Total Protein Vancomycin Trough Rheumatoid Factor Complement C4 Miscellaneous Test Crossmatch 09/23/16 09/23/16 09/23/16 05:00 05:00 05:10 WBC RBC Hgb Hct MCV MCH MCHC RDW Plt Count Lymph % (Auto) [place] % (Auto) Lymph # [place] # Baso # Seg Neutrophils % Seg Neuts % (Manual) Lymphocytes % (Manual) Monocytes % (Manual) Eosinophils % (Manual) Basophils % (Manual) Nucleated RBC % Seg Neutrophils # Seg Neutrophils # Man Lymphocytes # (Manual) Monocytes # (Manual) Eosinophils # (Manual) Basophils # (Manual) PT INR Fibrinogen dRVVT Confirm Interp Factor V Activity POC ABG pH POC ABG pCO2 POC ABG pO2 ABG pO2 ABG HCO3 ABG Base Excess ABG Hemoglobin Oxyhemoglobin Sodium 147 H Potassium 3.2 L Chloride 115.7 H Carbon Dioxide 13 L BUN 111 H Creatinine 3.8 H Glucose 194 H POC Glucose 188 H Lactic Acid Calcium 7.3 L D Ionized Calcium Phosphorus Magnesium Direct Bilirubin AST ALT Alkaline Phosphatase Lactate Dehydrogenase Troponin T C-Reactive Protein 3.20 H Total Protein Albumin Prealbumin Triglycerides Cholesterol LDL Cholesterol Direct HDL Cholesterol 25-OH Vitamin D Total PTH Intact Urine pH Urine WBC (Auto) Urine Creatinine Urine Total Protein Fluid Total Protein Vancomycin Trough Rheumatoid Factor Complement C4 Miscellaneous Test Crossmatch 09/23/16 09/23/16 09/23/16 11:37 12:29 18:01 WBC RBC Hgb Hct MCV MCH MCHC RDW Plt Count Lymph % (Auto) [place] % (Auto) Lymph # [place] # Baso # Seg Neutrophils % Seg Neuts % (Manual) Lymphocytes % (Manual) Monocytes % (Manual) Eosinophils % (Manual) Basophils % (Manual) Nucleated RBC % Seg Neutrophils # Seg Neutrophils # Man Lymphocytes # (Manual) Monocytes # (Manual) Eosinophils # (Manual) Basophils # (Manual) PT INR Fibrinogen dRVVT Confirm Interp Factor V Activity POC ABG pH POC ABG pCO2 18.9 L POC ABG pO2 143 H ABG pO2 ABG HCO3 ABG Base Excess ABG Hemoglobin Oxyhemoglobin Sodium Potassium Chloride Carbon Dioxide BUN Creatinine Glucose POC Glucose 153 H 108 H Lactic Acid Calcium Ionized Calcium Phosphorus Magnesium Direct Bilirubin AST ALT Alkaline Phosphatase Lactate Dehydrogenase Troponin T C-Reactive Protein Total Protein Albumin Prealbumin Triglycerides Cholesterol LDL Cholesterol Direct HDL Cholesterol 25-OH Vitamin D Total PTH Intact Urine pH Urine WBC (Auto) Urine Creatinine Urine Total Protein Fluid Total Protein Vancomycin Trough Rheumatoid Factor Complement C4 Miscellaneous Test Crossmatch 09/23/16 09/23/16 09/24/16 21:19 23:43 05:16 WBC RBC Hgb Hct MCV MCH MCHC RDW Plt Count Lymph % (Auto) [place] % (Auto) Lymph # [place] # Baso # Seg Neutrophils % Seg Neuts % (Manual) Lymphocytes % (Manual) Monocytes % (Manual) Eosinophils % (Manual) Basophils % (Manual) Nucleated RBC % Seg Neutrophils # Seg Neutrophils # Man Lymphocytes # (Manual) Monocytes # (Manual) Eosinophils # (Manual) Basophils # (Manual) PT INR Fibrinogen dRVVT Confirm Interp Factor V Activity POC ABG pH POC ABG pCO2 17.3 L POC ABG pO2 112 H ABG pO2 ABG HCO3 ABG Base Excess ABG Hemoglobin Oxyhemoglobin Sodium Potassium Chloride Carbon Dioxide BUN Creatinine Glucose POC Glucose 143 H 164 H Lactic Acid Calcium Ionized Calcium Phosphorus Magnesium Direct Bilirubin AST ALT Alkaline Phosphatase Lactate Dehydrogenase Troponin T C-Reactive Protein Total Protein Albumin Prealbumin Triglycerides Cholesterol LDL Cholesterol Direct HDL Cholesterol 25-OH Vitamin D Total PTH Intact Urine pH Urine WBC (Auto) Urine Creatinine Urine Total Protein Fluid Total Protein Vancomycin Trough Rheumatoid Factor Complement C4 Miscellaneous Test Crossmatch 09/24/16 09/24/16 09/24/16 05:21 11:58 17:06 WBC RBC Hgb Hct MCV MCH MCHC RDW Plt Count Lymph % (Auto) [place] % (Auto) Lymph # [place] # Baso # Seg Neutrophils % Seg Neuts % (Manual) Lymphocytes % (Manual) Monocytes % (Manual) Eosinophils % (Manual) Basophils % (Manual) Nucleated RBC % Seg Neutrophils # Seg Neutrophils # Man Lymphocytes # (Manual) Monocytes # (Manual) Eosinophils # (Manual) Basophils # (Manual) PT INR Fibrinogen dRVVT Confirm Interp Factor V Activity POC ABG pH POC ABG pCO2 POC ABG pO2 ABG pO2 ABG HCO3 ABG Base Excess ABG Hemoglobin Oxyhemoglobin Sodium Potassium Chloride Carbon Dioxide 10 L BUN 103 H Creatinine 4.3 H Glucose 163 H POC Glucose 173 H 167 H Lactic Acid Calcium 6.5 L Ionized Calcium Phosphorus Magnesium Direct Bilirubin AST ALT Alkaline Phosphatase Lactate Dehydrogenase Troponin T C-Reactive Protein Total Protein Albumin Prealbumin Triglycerides Cholesterol LDL Cholesterol Direct HDL Cholesterol 25-OH Vitamin D Total PTH Intact Urine pH Urine WBC (Auto) Urine Creatinine Urine Total Protein Fluid Total Protein Vancomycin Trough Rheumatoid Factor Complement C4 Miscellaneous Test Crossmatch 09/24/16 09/24/16 09/24/16 20:15 21:02 23:48 WBC RBC Hgb Hct MCV MCH MCHC RDW Plt Count Lymph % (Auto) [place] % (Auto) Lymph # [place] # Baso # Seg Neutrophils % Seg Neuts % (Manual) Lymphocytes % (Manual) Monocytes % (Manual) Eosinophils % (Manual) Basophils % (Manual) Nucleated RBC % Seg Neutrophils # Seg Neutrophils # Man Lymphocytes # (Manual) Monocytes # (Manual) Eosinophils # (Manual) Basophils # (Manual) PT INR Fibrinogen dRVVT Confirm Interp Factor V Activity POC ABG pH 7.288 L POC ABG pCO2 30.2 L 21.5 L POC ABG pO2 32 L 39 L ABG pO2 ABG HCO3 ABG Base Excess ABG Hemoglobin Oxyhemoglobin Sodium Potassium Chloride Carbon Dioxide BUN Creatinine Glucose POC Glucose 109 H Lactic Acid Calcium Ionized Calcium Phosphorus Magnesium Direct Bilirubin AST ALT Alkaline Phosphatase Lactate Dehydrogenase Troponin T C-Reactive Protein Total Protein Albumin Prealbumin Triglycerides Cholesterol LDL Cholesterol Direct HDL Cholesterol 25-OH Vitamin D Total PTH Intact Urine pH Urine WBC (Auto) Urine Creatinine Urine Total Protein Fluid Total Protein Vancomycin Trough Rheumatoid Factor Complement C4 Miscellaneous Test Crossmatch 09/25/16 09/25/16 09/25/16 04:20 04:20 04:20 WBC RBC 2.58 L Hgb 7.0 L Hct 21.0 L MCV MCH 27 L MCHC RDW 23.8 H Plt Count Lymph % (Auto) [place] % (Auto) Lymph # [place] # Baso # Seg Neutrophils % Seg Neuts % (Manual) Lymphocytes % (Manual) 12.0 L Monocytes % (Manual) Eosinophils % (Manual) 7.0 H Basophils % (Manual) 2.0 H Nucleated RBC % Seg Neutrophils # Seg Neutrophils # Man Lymphocytes # (Manual) 0.9 L Monocytes # (Manual) Eosinophils # (Manual) 0.5 H Basophils # (Manual) PT INR Fibrinogen dRVVT Confirm Interp Factor V Activity POC ABG pH POC ABG pCO2 POC ABG pO2 ABG pO2 ABG HCO3 ABG Base Excess ABG Hemoglobin Oxyhemoglobin Sodium Potassium Chloride Carbon Dioxide 15 L BUN 72 H Creatinine 3.8 H Glucose POC Glucose Lactic Acid Calcium 6.0 L Ionized Calcium Phosphorus 4.60 H Magnesium 1.60 L Direct Bilirubin AST ALT Alkaline Phosphatase Lactate Dehydrogenase Troponin T C-Reactive Protein Total Protein Albumin Prealbumin Triglycerides Cholesterol LDL Cholesterol Direct HDL Cholesterol 25-OH Vitamin D Total PTH Intact Urine pH Urine WBC (Auto) Urine Creatinine Urine Total Protein Fluid Total Protein Vancomycin Trough Rheumatoid Factor Complement C4 Miscellaneous Test Crossmatch 09/25/16 09/25/16 09/25/16 04:57 08:02 10:30 WBC RBC Hgb Hct MCV MCH MCHC RDW Plt Count Lymph % (Auto) [place] % (Auto) Lymph # [place] # Baso # Seg Neutrophils % Seg Neuts % (Manual) Lymphocytes % (Manual) Monocytes % (Manual) Eosinophils % (Manual) Basophils % (Manual) Nucleated RBC % Seg Neutrophils # Seg Neutrophils # Man Lymphocytes # (Manual) Monocytes # (Manual) Eosinophils # (Manual) Basophils # (Manual) PT INR Fibrinogen dRVVT Confirm Interp Factor V Activity POC ABG pH POC ABG pCO2 24.7 L POC ABG pO2 152 H ABG pO2 ABG HCO3 ABG Base Excess ABG Hemoglobin Oxyhemoglobin Sodium Potassium Chloride Carbon Dioxide BUN Creatinine Glucose POC Glucose 113 H Lactic Acid Calcium Ionized Calcium Phosphorus Magnesium Direct Bilirubin AST ALT Alkaline Phosphatase Lactate Dehydrogenase Troponin T C-Reactive Protein Total Protein Albumin Prealbumin Triglycerides Cholesterol LDL Cholesterol Direct HDL Cholesterol 25-OH Vitamin D Total PTH Intact Urine pH Urine WBC (Auto) Urine Creatinine Urine Total Protein Fluid Total Protein Vancomycin Trough Rheumatoid Factor Complement C4 Miscellaneous Test Crossmatch See Detail 09/25/16 09/25/16 09/25/16 12:05 17:44 23:47 WBC RBC Hgb Hct MCV MCH MCHC RDW Plt Count Lymph % (Auto) [place] % (Auto) Lymph # [place] # Baso # Seg Neutrophils % Seg Neuts % (Manual) Lymphocytes % (Manual) Monocytes % (Manual) Eosinophils % (Manual) Basophils % (Manual) Nucleated RBC % Seg Neutrophils # Seg Neutrophils # Man Lymphocytes # (Manual) Monocytes # (Manual) Eosinophils # (Manual) Basophils # (Manual) PT INR Fibrinogen dRVVT Confirm Interp Factor V Activity POC ABG pH POC ABG pCO2 POC ABG pO2 ABG pO2 ABG HCO3 ABG Base Excess ABG Hemoglobin Oxyhemoglobin Sodium Potassium Chloride Carbon Dioxide BUN Creatinine Glucose POC Glucose 117 H 119 H 150 H Lactic Acid Calcium Ionized Calcium Phosphorus Magnesium Direct Bilirubin AST ALT Alkaline Phosphatase Lactate Dehydrogenase Troponin T C-Reactive Protein Total Protein Albumin Prealbumin Triglycerides Cholesterol LDL Cholesterol Direct HDL Cholesterol 25-OH Vitamin D Total PTH Intact Urine pH Urine WBC (Auto) Urine Creatinine Urine Total Protein Fluid Total Protein Vancomycin Trough Rheumatoid Factor Complement C4 Miscellaneous Test Crossmatch 09/26/16 09/26/16 09/26/16 04:25 04:25 04:25 WBC RBC 2.65 L Hgb 7.4 L Hct 21.6 L MCV MCH MCHC RDW 22.5 H Plt Count Lymph % (Auto) [place] % (Auto) Lymph # [place] # Baso # Seg Neutrophils % Seg Neuts % (Manual) Lymphocytes % (Manual) 6.0 L Monocytes % (Manual) Eosinophils % (Manual) 11.0 H Basophils % (Manual) Nucleated RBC % Seg Neutrophils # Seg Neutrophils # Man Lymphocytes # (Manual) 0.4 L Monocytes # (Manual) Eosinophils # (Manual) 0.6 H Basophils # (Manual) PT INR Fibrinogen dRVVT Confirm Interp Factor V Activity POC ABG pH POC ABG pCO2 POC ABG pO2 ABG pO2 ABG HCO3 ABG Base Excess ABG Hemoglobin Oxyhemoglobin Sodium Potassium Chloride 97.0 L Carbon Dioxide 19 L BUN 43 H Creatinine 2.6 H Glucose 130 H POC Glucose Lactic Acid 4.40 H* Calcium 6.7 L Ionized Calcium Phosphorus Magnesium Direct Bilirubin AST ALT Alkaline Phosphatase Lactate Dehydrogenase Troponin T C-Reactive Protein Total Protein Albumin Prealbumin Triglycerides Cholesterol LDL Cholesterol Direct HDL Cholesterol 25-OH Vitamin D Total PTH Intact Urine pH Urine WBC (Auto) Urine Creatinine Urine Total Protein Fluid Total Protein Vancomycin Trough Rheumatoid Factor Complement C4 Miscellaneous Test Crossmatch 09/26/16 09/26/16 09/26/16 05:20 11:44 12:12 WBC RBC Hgb Hct MCV MCH MCHC RDW Plt Count Lymph % (Auto) [place] % (Auto) Lymph # [place] # Baso # Seg Neutrophils % Seg Neuts % (Manual) Lymphocytes % (Manual) Monocytes % (Manual) Eosinophils % (Manual) Basophils % (Manual) Nucleated RBC % Seg Neutrophils # Seg Neutrophils # Man Lymphocytes # (Manual) Monocytes # (Manual) Eosinophils # (Manual) Basophils # (Manual) PT INR Fibrinogen dRVVT Confirm Interp Factor V Activity POC ABG pH POC ABG pCO2 27.0 L POC ABG pO2 69 L ABG pO2 ABG HCO3 ABG Base Excess ABG Hemoglobin Oxyhemoglobin Sodium Potassium Chloride Carbon Dioxide BUN Creatinine Glucose POC Glucose 121 H 128 H Lactic Acid Calcium Ionized Calcium Phosphorus Magnesium Direct Bilirubin AST ALT Alkaline Phosphatase Lactate Dehydrogenase Troponin T C-Reactive Protein Total Protein Albumin Prealbumin Triglycerides Cholesterol LDL Cholesterol Direct HDL Cholesterol 25-OH Vitamin D Total PTH Intact Urine pH Urine WBC (Auto) Urine Creatinine Urine Total Protein Fluid Total Protein Vancomycin Trough Rheumatoid Factor Complement C4 Miscellaneous Test Crossmatch 09/26/16 09/26/16 09/27/16 18:31 23:40 08:20 WBC RBC Hgb Hct MCV MCH MCHC RDW Plt Count Lymph % (Auto) [place] % (Auto) Lymph # [place] # Baso # Seg Neutrophils % Seg Neuts % (Manual) Lymphocytes % (Manual) Monocytes % (Manual) Eosinophils % (Manual) Basophils % (Manual) Nucleated RBC % Seg Neutrophils # Seg Neutrophils # Man Lymphocytes # (Manual) Monocytes # (Manual) Eosinophils # (Manual) Basophils # (Manual) PT INR Fibrinogen dRVVT Confirm Interp Factor V Activity POC ABG pH POC ABG pCO2 POC ABG pO2 ABG pO2 ABG HCO3 ABG Base Excess ABG Hemoglobin Oxyhemoglobin Sodium Potassium Chloride Carbon Dioxide BUN Creatinine Glucose POC Glucose 120 H 133 H Lactic Acid 4.10 H* Calcium Ionized Calcium Phosphorus Magnesium Direct Bilirubin AST ALT Alkaline Phosphatase Lactate Dehydrogenase Troponin T C-Reactive Protein Total Protein Albumin Prealbumin Triglycerides Cholesterol LDL Cholesterol Direct HDL Cholesterol 25-OH Vitamin D Total PTH Intact Urine pH Urine WBC (Auto) Urine Creatinine Urine Total Protein Fluid Total Protein Vancomycin Trough Rheumatoid Factor Complement C4 Miscellaneous Test Crossmatch 09/27/16 09/27/16 09/27/16 11:23 15:00 18:15 WBC RBC Hgb Hct MCV MCH MCHC RDW Plt Count Lymph % (Auto) [place] % (Auto) Lymph # [place] # Baso # Seg Neutrophils % Seg Neuts % (Manual) Lymphocytes % (Manual) Monocytes % (Manual) Eosinophils % (Manual) Basophils % (Manual) Nucleated RBC % Seg Neutrophils # Seg Neutrophils # Man Lymphocytes # (Manual) Monocytes # (Manual) Eosinophils # (Manual) Basophils # (Manual) PT INR Fibrinogen dRVVT Confirm Interp Factor V Activity POC ABG pH 7.459 H POC ABG pCO2 27.1 L POC ABG pO2 140 H ABG pO2 ABG HCO3 ABG Base Excess ABG Hemoglobin Oxyhemoglobin Sodium Potassium Chloride Carbon Dioxide BUN Creatinine Glucose POC Glucose 114 H 127 H Lactic Acid Calcium Ionized Calcium Phosphorus Magnesium Direct Bilirubin AST ALT Alkaline Phosphatase Lactate Dehydrogenase Troponin T C-Reactive Protein Total Protein Albumin Prealbumin Triglycerides Cholesterol LDL Cholesterol Direct HDL Cholesterol 25-OH Vitamin D Total PTH Intact Urine pH Urine WBC (Auto) Urine Creatinine Urine Total Protein Fluid Total Protein Vancomycin Trough Rheumatoid Factor Complement C4 Miscellaneous Test Crossmatch 09/27/16 09/27/16 09/28/16 Unknown Unknown 03:45 WBC RBC 2.49 L Hgb 6.8 L Hct 20.7 L MCV MCH 27 L MCHC RDW 22.1 H Plt Count Lymph % (Auto) [place] % (Auto) Lymph # [place] # Baso # Seg Neutrophils % Seg Neuts % (Manual) 32.0 L Lymphocytes % (Manual) 12.0 L Monocytes % (Manual) 11.0 H Eosinophils % (Manual) 10.0 H Basophils % (Manual) Nucleated RBC % Seg Neutrophils # Seg Neutrophils # Man Lymphocytes # (Manual) 1.0 L Monocytes # (Manual) 0.9 H Eosinophils # (Manual) 0.8 H Basophils # (Manual) PT INR Fibrinogen dRVVT Confirm Interp Factor V Activity POC ABG pH POC ABG pCO2 POC ABG pO2 ABG pO2 ABG HCO3 ABG Base Excess ABG Hemoglobin Oxyhemoglobin Sodium 135 L 135 L Potassium 3.5 L Chloride 93.6 L 94.4 L Carbon Dioxide 17 L 21 L BUN 45 H 28 H Creatinine 3.3 H 2.5 H Glucose 106 H POC Glucose Lactic Acid Calcium 7.3 L 7.1 L Ionized Calcium Phosphorus Magnesium Direct Bilirubin AST ALT Alkaline Phosphatase Lactate Dehydrogenase Troponin T C-Reactive Protein Total Protein Albumin Prealbumin Triglycerides Cholesterol LDL Cholesterol Direct HDL Cholesterol 25-OH Vitamin D Total PTH Intact Urine pH Urine WBC (Auto) Urine Creatinine Urine Total Protein Fluid Total Protein Vancomycin Trough Rheumatoid Factor Complement C4 Miscellaneous Test Crossmatch 08/09/17 08/09/17 08/09/17 03:45 07:25 11:58 WBC 13.3 H RBC 3.01 L Hgb 8.4 L Hct 25.0 L MCV MCH MCHC RDW 20.5 H Plt Count 128 L Lymph % (Auto) [place] % (Auto) Lymph # [place] # Baso # Seg Neutrophils % Seg Neuts % (Manual) Lymphocytes % (Manual) 7.0 L Monocytes % (Manual) Eosinophils % (Manual) 6.0 H Basophils % (Manual) Nucleated RBC % Seg Neutrophils # Seg Neutrophils # Man Lymphocytes # (Manual) 0.9 L Monocytes # (Manual) Eosinophils # (Manual) 0.8 H Basophils # (Manual) PT INR Fibrinogen dRVVT Confirm Interp Factor V Activity POC ABG pH POC ABG pCO2 POC ABG pO2 ABG pO2 ABG HCO3 ABG Base Excess ABG Hemoglobin Oxyhemoglobin Sodium Potassium Chloride Carbon Dioxide BUN Creatinine Glucose POC Glucose 121 H Lactic Acid 4.50 H* Calcium Ionized Calcium Phosphorus Magnesium Direct Bilirubin AST ALT Alkaline Phosphatase Lactate Dehydrogenase Troponin T C-Reactive Protein Total Protein Albumin Prealbumin Triglycerides Cholesterol LDL Cholesterol Direct HDL Cholesterol 25-OH Vitamin D Total PTH Intact Urine pH Urine WBC (Auto) Urine Creatinine Urine Total Protein Fluid Total Protein Vancomycin Trough Rheumatoid Factor Complement C4 Miscellaneous Test Crossmatch 09/29/16 09/29/16 09/29/16 06:45 06:45 06:45 WBC 14.9 H RBC 2.74 L Hgb 7.6 L Hct 23.2 L MCV MCH MCHC RDW 20.5 H Plt Count 81 L Lymph % (Auto) [place] % (Auto) Lymph # [place] # Baso # Seg Neutrophils % Seg Neuts % (Manual) 81.0 H Lymphocytes % (Manual) 4.0 L Monocytes % (Manual) Eosinophils % (Manual) Basophils % (Manual) Nucleated RBC % Seg Neutrophils # Seg Neutrophils # Man 12.1 H Lymphocytes # (Manual) 0.6 L Monocytes # (Manual) Eosinophils # (Manual) Basophils # (Manual) PT INR Fibrinogen dRVVT Confirm Interp Factor V Activity POC ABG pH POC ABG pCO2 POC ABG pO2 ABG pO2 ABG HCO3 ABG Base Excess ABG Hemoglobin Oxyhemoglobin Sodium 133 L Potassium 3.4 L Chloride 92.5 L Carbon Dioxide 21 L BUN 33 H Creatinine 3.0 H Glucose POC Glucose Lactic Acid Calcium 6.6 L Ionized Calcium Phosphorus Magnesium 1.40 L Direct Bilirubin 0.9 H AST ALT Alkaline Phosphatase Lactate Dehydrogenase Troponin T C-Reactive Protein Total Protein 4.3 L Albumin 1.3 L Prealbumin Triglycerides Cholesterol LDL Cholesterol Direct HDL Cholesterol 25-OH Vitamin D Total PTH Intact Urine pH Urine WBC (Auto) Urine Creatinine Urine Total Protein Fluid Total Protein Vancomycin Trough Rheumatoid Factor Complement C4 Miscellaneous Test Crossmatch 09/29/16 09/29/16 09/30/16 17:52 20:12 00:07 WBC RBC Hgb Hct MCV MCH MCHC RDW Plt Count Lymph % (Auto) [place] % (Auto) Lymph # [place] # Baso # Seg Neutrophils % Seg Neuts % (Manual) Lymphocytes % (Manual) Monocytes % (Manual) Eosinophils % (Manual) Basophils % (Manual) Nucleated RBC % Seg Neutrophils # Seg Neutrophils # Man Lymphocytes # (Manual) Monocytes # (Manual) Eosinophils # (Manual) Basophils # (Manual) PT INR Fibrinogen dRVVT Confirm Interp Factor V Activity POC ABG pH POC ABG pCO2 POC ABG pO2 ABG pO2 ABG HCO3 ABG Base Excess ABG Hemoglobin Oxyhemoglobin Sodium Potassium Chloride Carbon Dioxide BUN Creatinine Glucose POC Glucose 50 L 51 L Lactic Acid Calcium Ionized Calcium Phosphorus Magnesium Direct Bilirubin AST ALT Alkaline Phosphatase Lactate Dehydrogenase Troponin T 0.204 H* C-Reactive Protein Total Protein Albumin Prealbumin Triglycerides Cholesterol 31 L LDL Cholesterol Direct 4 L HDL Cholesterol 3 L 25-OH Vitamin D Total PTH Intact Urine pH Urine WBC (Auto) Urine Creatinine Urine Total Protein Fluid Total Protein Vancomycin Trough Rheumatoid Factor Complement C4 Miscellaneous Test Crossmatch 09/30/16 09/30/16 09/30/16 01:30 05:15 06:10 WBC RBC Hgb Hct MCV MCH MCHC RDW Plt Count Lymph % (Auto) [place] % (Auto) Lymph # [place] # Baso # Seg Neutrophils % Seg Neuts % (Manual) Lymphocytes % (Manual) Monocytes % (Manual) Eosinophils % (Manual) Basophils % (Manual) Nucleated RBC % Seg Neutrophils # Seg Neutrophils # Man Lymphocytes # (Manual) Monocytes # (Manual) Eosinophils # (Manual) Basophils # (Manual) PT INR Fibrinogen dRVVT Confirm Interp Factor V Activity POC ABG pH POC ABG pCO2 POC ABG pO2 ABG pO2 ABG HCO3 ABG Base Excess ABG Hemoglobin Oxyhemoglobin Sodium 133 L Potassium 3.2 L Chloride 93.2 L Carbon Dioxide 19 L BUN 36 H Creatinine 3.2 H Glucose 104 H POC Glucose 167 H 146 H Lactic Acid Calcium 6.4 L Ionized Calcium Phosphorus Magnesium 1.60 L Direct Bilirubin AST ALT Alkaline Phosphatase Lactate Dehydrogenase Troponin T C-Reactive Protein Total Protein Albumin Prealbumin Triglycerides Cholesterol LDL Cholesterol Direct HDL Cholesterol 25-OH Vitamin D Total PTH Intact Urine pH Urine WBC (Auto) Urine Creatinine Urine Total Protein Fluid Total Protein Vancomycin Trough Rheumatoid Factor Complement C4 Miscellaneous Test Crossmatch 09/30/16 09/30/16 09/30/16 11:26 13:39 18:38 WBC RBC Hgb Hct MCV MCH MCHC RDW Plt Count Lymph % (Auto) [place] % (Auto) Lymph # [place] # Baso # Seg Neutrophils % Seg Neuts % (Manual) Lymphocytes % (Manual) Monocytes % (Manual) Eosinophils % (Manual) Basophils % (Manual) Nucleated RBC % Seg Neutrophils # Seg Neutrophils # Man Lymphocytes # (Manual) Monocytes # (Manual) Eosinophils # (Manual) Basophils # (Manual) PT INR Fibrinogen dRVVT Confirm Interp Factor V Activity POC ABG pH 7.479 H POC ABG pCO2 29.8 L POC ABG pO2 117 H ABG pO2 ABG HCO3 ABG Base Excess ABG Hemoglobin Oxyhemoglobin Sodium Potassium Chloride Carbon Dioxide BUN Creatinine Glucose POC Glucose 140 H 122 H Lactic Acid Calcium Ionized Calcium Phosphorus Magnesium Direct Bilirubin AST ALT Alkaline Phosphatase Lactate Dehydrogenase Troponin T C-Reactive Protein Total Protein Albumin Prealbumin Triglycerides Cholesterol LDL Cholesterol Direct HDL Cholesterol 25-OH Vitamin D Total PTH Intact Urine pH Urine WBC (Auto) Urine Creatinine Urine Total Protein Fluid Total Protein Vancomycin Trough Rheumatoid Factor Complement C4 Miscellaneous Test Crossmatch 10/01/16 10/01/16 10/01/16 06:00 06:00 12:37 WBC 12.6 H RBC 2.75 L Hgb 7.3 L Hct 23.3 L MCV MCH 27 L MCHC RDW 20.6 H Plt Count 72 L Lymph % (Auto) [place] % (Auto) Lymph # [place] # Baso # Seg Neutrophils % Seg Neuts % (Manual) 31.0 L Lymphocytes % (Manual) 8.0 L Monocytes % (Manual) Eosinophils % (Manual) Basophils % (Manual) Nucleated RBC % 3.0 H Seg Neutrophils # Seg Neutrophils # Man Lymphocytes # (Manual) 1.0 L Monocytes # (Manual) Eosinophils # (Manual) Basophils # (Manual) PT INR Fibrinogen dRVVT Confirm Interp Factor V Activity POC ABG pH POC ABG pCO2 POC ABG pO2 ABG pO2 ABG HCO3 ABG Base Excess ABG Hemoglobin Oxyhemoglobin Sodium 127 L Potassium Chloride 86.8 L Carbon Dioxide 20 L BUN 42 H Creatinine 3.5 H Glucose POC Glucose 65 L Lactic Acid Calcium 7.0 L Ionized Calcium Phosphorus Magnesium Direct Bilirubin AST ALT Alkaline Phosphatase Lactate Dehydrogenase Troponin T C-Reactive Protein Total Protein Albumin Prealbumin Triglycerides Cholesterol LDL Cholesterol Direct HDL Cholesterol 25-OH Vitamin D Total PTH Intact Urine pH Urine WBC (Auto) Urine Creatinine Urine Total Protein Fluid Total Protein Vancomycin Trough Rheumatoid Factor Complement C4 Miscellaneous Test Crossmatch 10/01/16 10/01/16 10/02/16 17:39 23:32 00:59 WBC RBC Hgb Hct MCV MCH MCHC RDW Plt Count Lymph % (Auto) [place] % (Auto) Lymph # [place] # Baso # Seg Neutrophils % Seg Neuts % (Manual) Lymphocytes % (Manual) Monocytes % (Manual) Eosinophils % (Manual) Basophils % (Manual) Nucleated RBC % Seg Neutrophils # Seg Neutrophils # Man Lymphocytes # (Manual) Monocytes # (Manual) Eosinophils # (Manual) Basophils # (Manual) PT INR Fibrinogen dRVVT Confirm Interp Factor V Activity POC ABG pH POC ABG pCO2 POC ABG pO2 ABG pO2 ABG HCO3 ABG Base Excess ABG Hemoglobin Oxyhemoglobin Sodium Potassium Chloride Carbon Dioxide BUN Creatinine Glucose POC Glucose 107 H 52 L 145 H Lactic Acid Calcium Ionized Calcium Phosphorus Magnesium Direct Bilirubin AST ALT Alkaline Phosphatase Lactate Dehydrogenase Troponin T C-Reactive Protein Total Protein Albumin Prealbumin Triglycerides Cholesterol LDL Cholesterol Direct HDL Cholesterol 25-OH Vitamin D Total PTH Intact Urine pH Urine WBC (Auto) Urine Creatinine Urine Total Protein Fluid Total Protein Vancomycin Trough Rheumatoid Factor Complement C4 Miscellaneous Test Crossmatch 10/02/16 10/02/16 10/02/16 10:30 10:50 10:50 WBC 14.7 H RBC 2.76 L Hgb 7.4 L Hct 23.6 L MCV MCH 27 L MCHC RDW 20.2 H Plt Count 79 L Lymph % (Auto) [place] % (Auto) Lymph # [place] # Baso # Seg Neutrophils % Seg Neuts % (Manual) 86.0 H Lymphocytes % (Manual) 6.0 L Monocytes % (Manual) Eosinophils % (Manual) Basophils % (Manual) Nucleated RBC % Seg Neutrophils # Seg Neutrophils # Man 12.6 H Lymphocytes # (Manual) 0.9 L Monocytes # (Manual) Eosinophils # (Manual) Basophils # (Manual) PT INR Fibrinogen dRVVT Confirm Interp Factor V Activity POC ABG pH 7.486 H POC ABG pCO2 30.1 L POC ABG pO2 108 H ABG pO2 ABG HCO3 ABG Base Excess ABG Hemoglobin Oxyhemoglobin Sodium 131 L Potassium 3.4 L Chloride 89.9 L Carbon Dioxide BUN 26 H Creatinine 2.6 H Glucose POC Glucose Lactic Acid Calcium 7.0 L Ionized Calcium Phosphorus Magnesium Direct Bilirubin AST ALT Alkaline Phosphatase Lactate Dehydrogenase Troponin T C-Reactive Protein Total Protein Albumin Prealbumin Triglycerides Cholesterol LDL Cholesterol Direct HDL Cholesterol 25-OH Vitamin D Total PTH Intact Urine pH Urine WBC (Auto) Urine Creatinine Urine Total Protein Fluid Total Protein Vancomycin Trough Rheumatoid Factor Complement C4 Miscellaneous Test Crossmatch 10/02/16 10/03/16 10/03/16 23:45 00:45 05:10 WBC 12.9 H RBC 2.77 L Hgb 7.6 L Hct 23.7 L MCV MCH 27 L MCHC RDW 19.7 H Plt Count 89 L Lymph % (Auto) [place] % (Auto) Lymph # [place] # Baso # Seg Neutrophils % Seg Neuts % (Manual) Lymphocytes % (Manual) 8.0 L Monocytes % (Manual) Eosinophils % (Manual) Basophils % (Manual) Nucleated RBC % Seg Neutrophils # 11.9 H Seg Neutrophils # Man Lymphocytes # (Manual) 1.0 L Monocytes # (Manual) Eosinophils # (Manual) Basophils # (Manual) PT INR Fibrinogen dRVVT Confirm Interp Factor V Activity POC ABG pH POC ABG pCO2 POC ABG pO2 ABG pO2 ABG HCO3 ABG Base Excess ABG Hemoglobin Oxyhemoglobin Sodium Potassium Chloride Carbon Dioxide BUN Creatinine Glucose POC Glucose 55 L 199 H Lactic Acid Calcium Ionized Calcium Phosphorus Magnesium Direct Bilirubin AST ALT Alkaline Phosphatase Lactate Dehydrogenase Troponin T C-Reactive Protein Total Protein Albumin Prealbumin Triglycerides Cholesterol LDL Cholesterol Direct HDL Cholesterol 25-OH Vitamin D Total PTH Intact Urine pH Urine WBC (Auto) Urine Creatinine Urine Total Protein Fluid Total Protein Vancomycin Trough Rheumatoid Factor Complement C4 Miscellaneous Test Crossmatch 10/03/16 10/03/16 10/03/16 05:10 12:14 13:18 WBC RBC Hgb Hct MCV MCH MCHC RDW Plt Count Lymph % (Auto) [place] % (Auto) Lymph # [place] # Baso # Seg Neutrophils % Seg Neuts % (Manual) Lymphocytes % (Manual) Monocytes % (Manual) Eosinophils % (Manual) Basophils % (Manual) Nucleated RBC % Seg Neutrophils # Seg Neutrophils # Man Lymphocytes # (Manual) Monocytes # (Manual) Eosinophils # (Manual) Basophils # (Manual) PT INR Fibrinogen dRVVT Confirm Interp Factor V Activity POC ABG pH POC ABG pCO2 POC ABG pO2 ABG pO2 ABG HCO3 ABG Base Excess ABG Hemoglobin Oxyhemoglobin Sodium 129 L Potassium 3.3 L Chloride 88.8 L Carbon Dioxide 20 L BUN 29 H Creatinine 2.8 H Glucose POC Glucose 68 L 127 H Lactic Acid Calcium 7.2 L Ionized Calcium Phosphorus Magnesium Direct Bilirubin AST ALT Alkaline Phosphatase Lactate Dehydrogenase Troponin T C-Reactive Protein Total Protein Albumin Prealbumin Triglycerides Cholesterol LDL Cholesterol Direct HDL Cholesterol 25-OH Vitamin D Total PTH Intact Urine pH Urine WBC (Auto) Urine Creatinine Urine Total Protein Fluid Total Protein Vancomycin Trough Rheumatoid Factor Complement C4 Miscellaneous Test Crossmatch 10/03/16 10/03/16 10/03/16 14:42 18:21 19:09 WBC RBC Hgb Hct MCV MCH MCHC RDW Plt Count Lymph % (Auto) [place] % (Auto) Lymph # [place] # Baso # Seg Neutrophils % Seg Neuts % (Manual) Lymphocytes % (Manual) Monocytes % (Manual) Eosinophils % (Manual) Basophils % (Manual) Nucleated RBC % Seg Neutrophils # Seg Neutrophils # Man Lymphocytes # (Manual) Monocytes # (Manual) Eosinophils # (Manual) Basophils # (Manual) PT INR Fibrinogen dRVVT Confirm Interp Factor V Activity POC ABG pH 7.499 H POC ABG pCO2 28.4 L POC ABG pO2 44 L ABG pO2 ABG HCO3 ABG Base Excess ABG Hemoglobin Oxyhemoglobin Sodium Potassium Chloride Carbon Dioxide BUN Creatinine Glucose POC Glucose 64 L 205 H Lactic Acid Calcium Ionized Calcium Phosphorus Magnesium Direct Bilirubin AST ALT Alkaline Phosphatase Lactate Dehydrogenase Troponin T C-Reactive Protein Total Protein Albumin Prealbumin Triglycerides Cholesterol LDL Cholesterol Direct HDL Cholesterol 25-OH Vitamin D Total PTH Intact Urine pH Urine WBC (Auto) Urine Creatinine Urine Total Protein Fluid Total Protein Vancomycin Trough Rheumatoid Factor Complement C4 Miscellaneous Test Crossmatch 10/03/16 10/04/16 10/04/16 23:33 04:18 06:30 WBC RBC 2.54 L Hgb 7.1 L Hct 21.7 L MCV MCH MCHC RDW 19.5 H Plt Count 76 L Lymph % (Auto) [place] % (Auto) Lymph # [place] # Baso # Seg Neutrophils % Seg Neuts % (Manual) 88.0 H Lymphocytes % (Manual) 6.0 L Monocytes % (Manual) Eosinophils % (Manual) Basophils % (Manual) Nucleated RBC % Seg Neutrophils # Seg Neutrophils # Man 8.8 H Lymphocytes # (Manual) 0.6 L Monocytes # (Manual) Eosinophils # (Manual) Basophils # (Manual) PT INR Fibrinogen dRVVT Confirm Interp Factor V Activity POC ABG pH 7.461 H POC ABG pCO2 33.6 L POC ABG pO2 211 H ABG pO2 ABG HCO3 ABG Base Excess ABG Hemoglobin Oxyhemoglobin Sodium Potassium Chloride Carbon Dioxide BUN Creatinine Glucose POC Glucose 136 H Lactic Acid Calcium Ionized Calcium Phosphorus Magnesium Direct Bilirubin AST ALT Alkaline Phosphatase Lactate Dehydrogenase Troponin T C-Reactive Protein Total Protein Albumin Prealbumin Triglycerides Cholesterol LDL Cholesterol Direct HDL Cholesterol 25-OH Vitamin D Total PTH Intact Urine pH Urine WBC (Auto) Urine Creatinine Urine Total Protein Fluid Total Protein Vancomycin Trough Rheumatoid Factor Complement C4 Miscellaneous Test Crossmatch 10/04/16 10/04/16 10/04/16 06:30 11:45 17:54 WBC RBC Hgb Hct MCV MCH MCHC RDW Plt Count Lymph % (Auto) [place] % (Auto) Lymph # [place] # Baso # Seg Neutrophils % Seg Neuts % (Manual) Lymphocytes % (Manual) Monocytes % (Manual) Eosinophils % (Manual) Basophils % (Manual) Nucleated RBC % Seg Neutrophils # Seg Neutrophils # Man Lymphocytes # (Manual) Monocytes # (Manual) Eosinophils # (Manual) Basophils # (Manual) PT INR Fibrinogen dRVVT Confirm Interp Factor V Activity POC ABG pH POC ABG pCO2 POC ABG pO2 ABG pO2 ABG HCO3 ABG Base Excess ABG Hemoglobin Oxyhemoglobin Sodium 128 L Potassium Chloride 87.4 L Carbon Dioxide 20 L BUN 34 H Creatinine 2.9 H Glucose 127 H POC Glucose 158 H 160 H Lactic Acid Calcium 7.4 L Ionized Calcium Phosphorus Magnesium Direct Bilirubin AST ALT Alkaline Phosphatase Lactate Dehydrogenase Troponin T C-Reactive Protein Total Protein Albumin Prealbumin Triglycerides Cholesterol LDL Cholesterol Direct HDL Cholesterol 25-OH Vitamin D Total PTH Intact Urine pH Urine WBC (Auto) Urine Creatinine Urine Total Protein Fluid Total Protein Vancomycin Trough Rheumatoid Factor Complement C4 Miscellaneous Test Crossmatch 10/04/16 10/05/16 10/05/16 23:25 04:30 05:00 WBC RBC 2.64 L Hgb 7.5 L Hct 22.6 L MCV MCH MCHC RDW 19.3 H Plt Count 80 L Lymph % (Auto) [place] % (Auto) Lymph # [place] # Baso # Seg Neutrophils % Seg Neuts % (Manual) Lymphocytes % (Manual) 12.0 L Monocytes % (Manual) Eosinophils % (Manual) Basophils % (Manual) Nucleated RBC % Seg Neutrophils # Seg Neutrophils # Man Lymphocytes # (Manual) Monocytes # (Manual) Eosinophils # (Manual) Basophils # (Manual) PT INR Fibrinogen dRVVT Confirm Interp Factor V Activity POC ABG pH 7.475 H POC ABG pCO2 33.3 L POC ABG pO2 140 H ABG pO2 ABG HCO3 ABG Base Excess ABG Hemoglobin Oxyhemoglobin Sodium Potassium Chloride Carbon Dioxide BUN Creatinine Glucose POC Glucose 141 H Lactic Acid Calcium Ionized Calcium Phosphorus Magnesium Direct Bilirubin AST ALT Alkaline Phosphatase Lactate Dehydrogenase Troponin T C-Reactive Protein Total Protein Albumin Prealbumin Triglycerides Cholesterol LDL Cholesterol Direct HDL Cholesterol 25-OH Vitamin D Total PTH Intact Urine pH Urine WBC (Auto) Urine Creatinine Urine Total Protein Fluid Total Protein Vancomycin Trough Rheumatoid Factor Complement C4 Miscellaneous Test Crossmatch 10/05/16 10/05/16 10/05/16 05:00 05:09 12:58 WBC RBC Hgb Hct MCV MCH MCHC RDW Plt Count Lymph % (Auto) [place] % (Auto) Lymph # [place] # Baso # Seg Neutrophils % Seg Neuts % (Manual) Lymphocytes % (Manual) Monocytes % (Manual) Eosinophils % (Manual) Basophils % (Manual) Nucleated RBC % Seg Neutrophils # Seg Neutrophils # Man Lymphocytes # (Manual) Monocytes # (Manual) Eosinophils # (Manual) Basophils # (Manual) PT INR Fibrinogen dRVVT Confirm Interp Factor V Activity POC ABG pH POC ABG pCO2 POC ABG pO2 ABG pO2 ABG HCO3 ABG Base Excess ABG Hemoglobin Oxyhemoglobin Sodium 131 L Potassium Chloride 94.0 L Carbon Dioxide 20 L BUN 22 H Creatinine 2.0 H Glucose 123 H POC Glucose 166 H 179 H Lactic Acid Calcium 7.7 L Ionized Calcium Phosphorus 2.20 L D Magnesium Direct Bilirubin AST ALT Alkaline Phosphatase Lactate Dehydrogenase Troponin T C-Reactive Protein Total Protein Albumin Prealbumin Triglycerides Cholesterol LDL Cholesterol Direct HDL Cholesterol 25-OH Vitamin D Total PTH Intact Urine pH Urine WBC (Auto) Urine Creatinine Urine Total Protein Fluid Total Protein Vancomycin Trough Rheumatoid Factor Complement C4 Miscellaneous Test Crossmatch 10/05/16 10/05/16 10/05/16 15:50 18:53 23:12 WBC RBC Hgb Hct MCV MCH MCHC RDW Plt Count Lymph % (Auto) [place] % (Auto) Lymph # [place] # Baso # Seg Neutrophils % Seg Neuts % (Manual) Lymphocytes % (Manual) Monocytes % (Manual) Eosinophils % (Manual) Basophils % (Manual) Nucleated RBC % Seg Neutrophils # Seg Neutrophils # Man Lymphocytes # (Manual) Monocytes # (Manual) Eosinophils # (Manual) Basophils # (Manual) PT INR Fibrinogen dRVVT Confirm Interp Factor V Activity POC ABG pH POC ABG pCO2 POC ABG pO2 ABG pO2 ABG HCO3 ABG Base Excess ABG Hemoglobin Oxyhemoglobin Sodium Potassium Chloride Carbon Dioxide BUN Creatinine Glucose POC Glucose 150 H 164 H Lactic Acid Calcium Ionized Calcium Phosphorus Magnesium Direct Bilirubin AST ALT Alkaline Phosphatase Lactate Dehydrogenase Troponin T C-Reactive Protein Total Protein Albumin Prealbumin Triglycerides Cholesterol LDL Cholesterol Direct HDL Cholesterol 25-OH Vitamin D Total PTH Intact Urine pH Urine WBC (Auto) Urine Creatinine Urine Total Protein Fluid Total Protein Vancomycin Trough Rheumatoid Factor Complement C4 Miscellaneous Test Crossmatch See Detail 10/06/16 10/06/16 10/06/16 03:50 03:50 04:53 WBC RBC 3.00 L Hgb 8.6 L Hct 25.8 L MCV MCH MCHC RDW 17.9 H Plt Count 65 L Lymph % (Auto) [place] % (Auto) Lymph # [place] # Baso # Seg Neutrophils % Seg Neuts % (Manual) 30.0 L Lymphocytes % (Manual) 5.0 L Monocytes % (Manual) Eosinophils % (Manual) Basophils % (Manual) Nucleated RBC % Seg Neutrophils # Seg Neutrophils # Man Lymphocytes # (Manual) 0.4 L Monocytes # (Manual) Eosinophils # (Manual) Basophils # (Manual) PT INR Fibrinogen dRVVT Confirm Interp Factor V Activity POC ABG pH 7.310 L POC ABG pCO2 49.0 H POC ABG pO2 ABG pO2 ABG HCO3 ABG Base Excess ABG Hemoglobin Oxyhemoglobin Sodium 133 L Potassium Chloride 95.9 L Carbon Dioxide BUN 26 H Creatinine 2.0 H Glucose 116 H POC Glucose Lactic Acid Calcium 7.8 L Ionized Calcium Phosphorus Magnesium Direct Bilirubin AST ALT Alkaline Phosphatase Lactate Dehydrogenase Troponin T C-Reactive Protein Total Protein Albumin Prealbumin Triglycerides Cholesterol LDL Cholesterol Direct HDL Cholesterol 25-OH Vitamin D Total PTH Intact Urine pH Urine WBC (Auto) Urine Creatinine Urine Total Protein Fluid Total Protein Vancomycin Trough Rheumatoid Factor Complement C4 Miscellaneous Test Crossmatch 10/06/16 10/06/16 10/06/16 05:23 11:52 18:34 WBC RBC Hgb Hct MCV MCH MCHC RDW Plt Count Lymph % (Auto) [place] % (Auto) Lymph # [place] # Baso # Seg Neutrophils % Seg Neuts % (Manual) Lymphocytes % (Manual) Monocytes % (Manual) Eosinophils % (Manual) Basophils % (Manual) Nucleated RBC % Seg Neutrophils # Seg Neutrophils # Man Lymphocytes # (Manual) Monocytes # (Manual) Eosinophils # (Manual) Basophils # (Manual) PT INR Fibrinogen dRVVT Confirm Interp Factor V Activity POC ABG pH POC ABG pCO2 POC ABG pO2 ABG pO2 ABG HCO3 ABG Base Excess ABG Hemoglobin Oxyhemoglobin Sodium Potassium Chloride Carbon Dioxide BUN Creatinine Glucose POC Glucose 126 H 116 H 129 H Lactic Acid Calcium Ionized Calcium Phosphorus Magnesium Direct Bilirubin AST ALT Alkaline Phosphatase Lactate Dehydrogenase Troponin T C-Reactive Protein Total Protein Albumin Prealbumin Triglycerides Cholesterol LDL Cholesterol Direct HDL Cholesterol 25-OH Vitamin D Total PTH Intact Urine pH Urine WBC (Auto) Urine Creatinine Urine Total Protein Fluid Total Protein Vancomycin Trough Rheumatoid Factor Complement C4 Miscellaneous Test Crossmatch 10/07/16 10/07/16 10/07/16 03:45 05:00 10:00 WBC 17.0 H RBC 2.68 L Hgb 7.3 L Hct 25.3 L MCV MCH 27 L MCHC 29 L RDW 19.6 H Plt Count 74 L Lymph % (Auto) [place] % (Auto) Lymph # [place] # Baso # Seg Neutrophils % Seg Neuts % (Manual) Lymphocytes % (Manual) 12.0 L Monocytes % (Manual) Eosinophils % (Manual) Basophils % (Manual) Nucleated RBC % 4.0 H Seg Neutrophils # Seg Neutrophils # Man 10.7 H Lymphocytes # (Manual) Monocytes # (Manual) Eosinophils # (Manual) Basophils # (Manual) PT INR Fibrinogen dRVVT Confirm Interp Factor V Activity POC ABG pH POC ABG pCO2 POC ABG pO2 ABG pO2 ABG HCO3 ABG Base Excess ABG Hemoglobin Oxyhemoglobin Sodium 130 L Potassium 3.2 L Chloride 93.9 L Carbon Dioxide 20 L BUN 44 H Creatinine 2.7 H Glucose 129 H POC Glucose Lactic Acid Calcium 7.4 L Ionized Calcium Phosphorus Magnesium Direct Bilirubin AST ALT 6 L Alkaline Phosphatase 195 H Lactate Dehydrogenase Troponin T C-Reactive Protein Total Protein 4.9 L Albumin 1.0 L Prealbumin Triglycerides Cholesterol LDL Cholesterol Direct HDL Cholesterol 25-OH Vitamin D Total PTH Intact Urine pH Urine WBC (Auto) Urine Creatinine Urine Total Protein Fluid Total Protein Vancomycin Trough Rheumatoid Factor Complement C4 Miscellaneous Test Flexitest 1 H Crossmatch 10/07/16 10/07/16 10/07/16 10:00 11:24 18:10 WBC RBC Hgb Hct MCV MCH MCHC RDW Plt Count Lymph % (Auto) [place] % (Auto) Lymph # [place] # Baso # Seg Neutrophils % Seg Neuts % (Manual) Lymphocytes % (Manual) Monocytes % (Manual) Eosinophils % (Manual) Basophils % (Manual) Nucleated RBC % Seg Neutrophils # Seg Neutrophils # Man Lymphocytes # (Manual) Monocytes # (Manual) Eosinophils # (Manual) Basophils # (Manual) PT INR Fibrinogen dRVVT Confirm Interp Factor V Activity POC ABG pH POC ABG pCO2 POC ABG pO2 ABG pO2 ABG HCO3 ABG Base Excess ABG Hemoglobin Oxyhemoglobin Sodium Potassium Chloride Carbon Dioxide BUN Creatinine Glucose POC Glucose 116 H 130 H Lactic Acid Calcium Ionized Calcium Phosphorus Magnesium Direct Bilirubin AST ALT Alkaline Phosphatase Lactate Dehydrogenase Troponin T C-Reactive Protein 19.40 H Total Protein Albumin Prealbumin Triglycerides Cholesterol LDL Cholesterol Direct HDL Cholesterol 25-OH Vitamin D Total PTH Intact Urine pH Urine WBC (Auto) Urine Creatinine Urine Total Protein Fluid Total Protein Vancomycin Trough Rheumatoid Factor Complement C4 Miscellaneous Test Crossmatch 10/07/16 10/08/16 10/08/16 18:30 00:00 04:00 WBC RBC Hgb Hct MCV MCH MCHC RDW Plt Count Lymph % (Auto) [place] % (Auto) Lymph # [place] # Baso # Seg Neutrophils % Seg Neuts % (Manual) Lymphocytes % (Manual) Monocytes % (Manual) Eosinophils % (Manual) Basophils % (Manual) Nucleated RBC % Seg Neutrophils # Seg Neutrophils # Man Lymphocytes # (Manual) Monocytes # (Manual) Eosinophils # (Manual) Basophils # (Manual) PT INR Fibrinogen dRVVT Confirm Interp Factor V Activity POC ABG pH POC ABG pCO2 POC ABG pO2 ABG pO2 ABG HCO3 ABG Base Excess ABG Hemoglobin Oxyhemoglobin Sodium 132 L Potassium 3.3 L Chloride 93.6 L Carbon Dioxide 17 L BUN 59 H Creatinine 2.7 H Glucose 121 H POC Glucose 122 H Lactic Acid Calcium 7.6 L Ionized Calcium Phosphorus Magnesium Direct Bilirubin AST ALT Alkaline Phosphatase Lactate Dehydrogenase Troponin T C-Reactive Protein Total Protein Albumin Prealbumin Triglycerides Cholesterol LDL Cholesterol Direct HDL Cholesterol 25-OH Vitamin D Total PTH Intact Urine pH Urine WBC (Auto) > 182.0 H Urine Creatinine Urine Total Protein Fluid Total Protein Vancomycin Trough Rheumatoid Factor Complement C4 Miscellaneous Test Crossmatch 10/08/16 10/08/16 10/08/16 04:30 05:30 11:51 WBC RBC 5.15 H Hgb 14.4 H D Hct 44.5 H D MCV MCH MCHC RDW 19.5 H Plt Count 56 L Lymph % (Auto) [place] % (Auto) Lymph # [place] # Baso # Seg Neutrophils % Seg Neuts % (Manual) 24.0 L Lymphocytes % (Manual) 8.0 L Monocytes % (Manual) Eosinophils % (Manual) Basophils % (Manual) Nucleated RBC % 9.0 H Seg Neutrophils # Seg Neutrophils # Man Lymphocytes # (Manual) 0.7 L Monocytes # (Manual) Eosinophils # (Manual) Basophils # (Manual) PT INR Fibrinogen dRVVT Confirm Interp Factor V Activity POC ABG pH POC ABG pCO2 POC ABG pO2 ABG pO2 ABG HCO3 ABG Base Excess ABG Hemoglobin Oxyhemoglobin Sodium Potassium Chloride Carbon Dioxide BUN Creatinine Glucose POC Glucose 125 H 150 H Lactic Acid Calcium Ionized Calcium Phosphorus Magnesium Direct Bilirubin AST ALT Alkaline Phosphatase Lactate Dehydrogenase Troponin T C-Reactive Protein Total Protein Albumin Prealbumin Triglycerides Cholesterol LDL Cholesterol Direct HDL Cholesterol 25-OH Vitamin D Total PTH Intact Urine pH Urine WBC (Auto) Urine Creatinine Urine Total Protein Fluid Total Protein Vancomycin Trough Rheumatoid Factor Complement C4 Miscellaneous Test Crossmatch 10/08/16 10/08/16 10/08/16 12:49 17:07 19:30 WBC RBC Hgb 7.1 L D Hct 22.4 L D MCV MCH MCHC RDW Plt Count Lymph % (Auto) [place] % (Auto) Lymph # [place] # Baso # Seg Neutrophils % Seg Neuts % (Manual) Lymphocytes % (Manual) Monocytes % (Manual) Eosinophils % (Manual) Basophils % (Manual) Nucleated RBC % Seg Neutrophils # Seg Neutrophils # Man Lymphocytes # (Manual) Monocytes # (Manual) Eosinophils # (Manual) Basophils # (Manual) PT INR Fibrinogen dRVVT Confirm Interp Factor V Activity POC ABG pH POC ABG pCO2 28.2 L POC ABG pO2 111 H ABG pO2 ABG HCO3 ABG Base Excess ABG Hemoglobin Oxyhemoglobin Sodium Potassium Chloride Carbon Dioxide BUN Creatinine Glucose POC Glucose 145 H Lactic Acid Calcium Ionized Calcium Phosphorus Magnesium Direct Bilirubin AST ALT Alkaline Phosphatase Lactate Dehydrogenase Troponin T C-Reactive Protein Total Protein Albumin Prealbumin Triglycerides Cholesterol LDL Cholesterol Direct HDL Cholesterol 25-OH Vitamin D Total PTH Intact Urine pH Urine WBC (Auto) Urine Creatinine Urine Total Protein Fluid Total Protein Vancomycin Trough Rheumatoid Factor Complement C4 Miscellaneous Test Crossmatch 10/08/16 10/09/16 10/09/16 19:30 03:45 03:45 WBC 12.6 H RBC 2.36 L Hgb 6.7 L Hct 21.1 L MCV MCH MCHC RDW 19.5 H Plt Count 75 L Lymph % (Auto) [place] % (Auto) Lymph # [place] # Baso # Seg Neutrophils % Seg Neuts % (Manual) Lymphocytes % (Manual) Monocytes % (Manual) 10.0 H Eosinophils % (Manual) Basophils % (Manual) Nucleated RBC % 3.0 H Seg Neutrophils # Seg Neutrophils # Man Lymphocytes # (Manual) Monocytes # (Manual) 1.3 H Eosinophils # (Manual) Basophils # (Manual) PT 18.0 H INR 1.41 H Fibrinogen dRVVT Confirm Interp Factor V Activity POC ABG pH POC ABG pCO2 POC ABG pO2 ABG pO2 ABG HCO3 ABG Base Excess ABG Hemoglobin Oxyhemoglobin Sodium 135 L Potassium Chloride Carbon Dioxide 17 L BUN 81 H Creatinine 3.2 H Glucose 109 H POC Glucose Lactic Acid Calcium 7.4 L Ionized Calcium Phosphorus 4.60 H D Magnesium Direct Bilirubin AST ALT Alkaline Phosphatase Lactate Dehydrogenase Troponin T C-Reactive Protein Total Protein Albumin Prealbumin Triglycerides Cholesterol LDL Cholesterol Direct HDL Cholesterol 25-OH Vitamin D Total PTH Intact Urine pH Urine WBC (Auto) Urine Creatinine Urine Total Protein Fluid Total Protein Vancomycin Trough Rheumatoid Factor Complement C4 Miscellaneous Test Crossmatch 10/09/16 10/09/16 10/09/16 03:45 05:14 07:20 WBC RBC Hgb Hct MCV MCH MCHC RDW Plt Count Lymph % (Auto) [place] % (Auto) Lymph # [place] # Baso # Seg Neutrophils % Seg Neuts % (Manual) Lymphocytes % (Manual) Monocytes % (Manual) Eosinophils % (Manual) Basophils % (Manual) Nucleated RBC % Seg Neutrophils # Seg Neutrophils # Man Lymphocytes # (Manual) Monocytes # (Manual) Eosinophils # (Manual) Basophils # (Manual) PT 19.0 H INR 1.51 H Fibrinogen dRVVT Confirm Interp Factor V Activity POC ABG pH POC ABG pCO2 POC ABG pO2 ABG pO2 ABG HCO3 ABG Base Excess ABG Hemoglobin Oxyhemoglobin Sodium Potassium Chloride Carbon Dioxide BUN Creatinine Glucose POC Glucose 151 H Lactic Acid Calcium Ionized Calcium Phosphorus Magnesium Direct Bilirubin AST ALT Alkaline Phosphatase Lactate Dehydrogenase Troponin T C-Reactive Protein Total Protein Albumin Prealbumin Triglycerides Cholesterol LDL Cholesterol Direct HDL Cholesterol 25-OH Vitamin D Total PTH Intact Urine pH Urine WBC (Auto) Urine Creatinine Urine Total Protein Fluid Total Protein Vancomycin Trough Rheumatoid Factor Complement C4 Miscellaneous Test Crossmatch See Detail 10/09/16 10/09/16 10/09/16 11:46 16:20 16:43 WBC RBC Hgb 7.2 L Hct 22.2 L MCV MCH MCHC RDW Plt Count Lymph % (Auto) [place] % (Auto) Lymph # [place] # Baso # Seg Neutrophils % Seg Neuts % (Manual) Lymphocytes % (Manual) Monocytes % (Manual) Eosinophils % (Manual) Basophils % (Manual) Nucleated RBC % Seg Neutrophils # Seg Neutrophils # Man Lymphocytes # (Manual) Monocytes # (Manual) Eosinophils # (Manual) Basophils # (Manual) PT INR Fibrinogen dRVVT Confirm Interp Factor V Activity POC ABG pH POC ABG pCO2 POC ABG pO2 ABG pO2 ABG HCO3 ABG Base Excess ABG Hemoglobin Oxyhemoglobin Sodium Potassium Chloride Carbon Dioxide BUN Creatinine Glucose POC Glucose 133 H 141 H Lactic Acid Calcium Ionized Calcium Phosphorus Magnesium Direct Bilirubin AST ALT Alkaline Phosphatase Lactate Dehydrogenase Troponin T C-Reactive Protein Total Protein Albumin Prealbumin Triglycerides Cholesterol LDL Cholesterol Direct HDL Cholesterol 25-OH Vitamin D Total PTH Intact Urine pH Urine WBC (Auto) Urine Creatinine Urine Total Protein Fluid Total Protein Vancomycin Trough Rheumatoid Factor Complement C4 Miscellaneous Test Crossmatch 10/10/16 10/10/16 10/10/16 05:00 05:00 11:19 WBC 18.5 H RBC 2.19 L Hgb 6.4 L Hct 19.6 L* MCV MCH MCHC RDW 19.3 H Plt Count 93 L Lymph % (Auto) [place] % (Auto) Lymph # [place] # Baso # Seg Neutrophils % Seg Neuts % (Manual) Lymphocytes % (Manual) 10.0 L Monocytes % (Manual) Eosinophils % (Manual) Basophils % (Manual) Nucleated RBC % 4.0 H Seg Neutrophils # Seg Neutrophils # Man 11.3 H Lymphocytes # (Manual) Monocytes # (Manual) Eosinophils # (Manual) Basophils # (Manual) PT INR Fibrinogen dRVVT Confirm Interp Factor V Activity POC ABG pH POC ABG pCO2 POC ABG pO2 ABG pO2 ABG HCO3 ABG Base Excess ABG Hemoglobin Oxyhemoglobin Sodium Potassium 5.7 H D Chloride Carbon Dioxide 16 L BUN 94 H Creatinine 3.1 H Glucose 131 H POC Glucose 153 H Lactic Acid Calcium 8.2 L Ionized Calcium Phosphorus 5.10 H Magnesium 2.40 H Direct Bilirubin 0.3 H AST ALT < 5 L Alkaline Phosphatase 319 H Lactate Dehydrogenase Troponin T C-Reactive Protein Total Protein 5.1 L Albumin 1.0 L Prealbumin Triglycerides Cholesterol LDL Cholesterol Direct HDL Cholesterol 25-OH Vitamin D Total PTH Intact Urine pH Urine WBC (Auto) Urine Creatinine Urine Total Protein Fluid Total Protein Vancomycin Trough Rheumatoid Factor Complement C4 Miscellaneous Test Crossmatch 10/10/16 10/10/16 10/11/16 17:50 23:30 04:15 WBC RBC Hgb Hct MCV MCH MCHC RDW Plt Count Lymph % (Auto) [place] % (Auto) Lymph # [place] # Baso # Seg Neutrophils % Seg Neuts % (Manual) Lymphocytes % (Manual) Monocytes % (Manual) Eosinophils % (Manual) Basophils % (Manual) Nucleated RBC % Seg Neutrophils # Seg Neutrophils # Man Lymphocytes # (Manual) Monocytes # (Manual) Eosinophils # (Manual) Basophils # (Manual) PT INR Fibrinogen dRVVT Confirm Interp Factor V Activity POC ABG pH POC ABG pCO2 POC ABG pO2 ABG pO2 ABG HCO3 ABG Base Excess ABG Hemoglobin Oxyhemoglobin Sodium Potassium Chloride 96.4 L Carbon Dioxide 21 L BUN 57 H Creatinine 2.1 H Glucose 151 H POC Glucose 146 H 141 H Lactic Acid Calcium 8.3 L Ionized Calcium Phosphorus Magnesium Direct Bilirubin AST ALT Alkaline Phosphatase Lactate Dehydrogenase Troponin T C-Reactive Protein Total Protein Albumin Prealbumin Triglycerides Cholesterol LDL Cholesterol Direct HDL Cholesterol 25-OH Vitamin D Total PTH Intact Urine pH Urine WBC (Auto) Urine Creatinine Urine Total Protein Fluid Total Protein Vancomycin Trough Rheumatoid Factor Complement C4 Miscellaneous Test Crossmatch 10/11/16 10/11/16 10/11/16 04:15 04:15 05:30 WBC 28.3 H RBC 3.12 L Hgb 9.3 L Hct 28.7 L D MCV MCH MCHC RDW 17.7 H Plt Count 128 L Lymph % (Auto) [place] % (Auto) Lymph # [place] # Baso # Seg Neutrophils % Seg Neuts % (Manual) Lymphocytes % (Manual) Monocytes % (Manual) Eosinophils % (Manual) Basophils % (Manual) Nucleated RBC % Seg Neutrophils # Seg Neutrophils # Man Lymphocytes # (Manual) Monocytes # (Manual) Eosinophils # (Manual) Basophils # (Manual) PT INR Fibrinogen dRVVT Confirm Interp Factor V Activity POC ABG pH POC ABG pCO2 POC ABG pO2 ABG pO2 ABG HCO3 ABG Base Excess ABG Hemoglobin Oxyhemoglobin Sodium Potassium Chloride Carbon Dioxide BUN Creatinine Glucose POC Glucose 167 H Lactic Acid Calcium Ionized Calcium Phosphorus Magnesium Direct Bilirubin AST ALT Alkaline Phosphatase Lactate Dehydrogenase Troponin T C-Reactive Protein 15.80 H Total Protein Albumin Prealbumin Triglycerides Cholesterol LDL Cholesterol Direct HDL Cholesterol 25-OH Vitamin D Total PTH Intact Urine pH Urine WBC (Auto) Urine Creatinine Urine Total Protein Fluid Total Protein Vancomycin Trough Rheumatoid Factor Complement C4 Miscellaneous Test Crossmatch 10/11/16 10/11/16 10/11/16 11:40 15:49 23:57 WBC RBC Hgb Hct MCV MCH MCHC RDW Plt Count Lymph % (Auto) [place] % (Auto) Lymph # [place] # Baso # Seg Neutrophils % Seg Neuts % (Manual) Lymphocytes % (Manual) Monocytes % (Manual) Eosinophils % (Manual) Basophils % (Manual) Nucleated RBC % Seg Neutrophils # Seg Neutrophils # Man Lymphocytes # (Manual) Monocytes # (Manual) Eosinophils # (Manual) Basophils # (Manual) PT INR Fibrinogen dRVVT Confirm Interp Factor V Activity POC ABG pH POC ABG pCO2 POC ABG pO2 ABG pO2 ABG HCO3 ABG Base Excess ABG Hemoglobin Oxyhemoglobin Sodium Potassium Chloride Carbon Dioxide BUN Creatinine Glucose POC Glucose 139 H 168 H 161 H Lactic Acid Calcium Ionized Calcium Phosphorus Magnesium Direct Bilirubin AST ALT Alkaline Phosphatase Lactate Dehydrogenase Troponin T C-Reactive Protein Total Protein Albumin Prealbumin Triglycerides Cholesterol LDL Cholesterol Direct HDL Cholesterol 25-OH Vitamin D Total PTH Intact Urine pH Urine WBC (Auto) Urine Creatinine Urine Total Protein Fluid Total Protein Vancomycin Trough Rheumatoid Factor Complement C4 Miscellaneous Test Crossmatch 10/12/16 10/12/16 10/12/16 04:40 04:40 05:44 WBC 22.5 H RBC 2.88 L Hgb 8.8 L Hct 26.8 L MCV MCH MCHC RDW 17.8 H Plt Count Lymph % (Auto) [place] % (Auto) Lymph # [place] # Baso # Seg Neutrophils % Seg Neuts % (Manual) Lymphocytes % (Manual) Monocytes % (Manual) Eosinophils % (Manual) Basophils % (Manual) Nucleated RBC % Seg Neutrophils # Seg Neutrophils # Man Lymphocytes # (Manual) Monocytes # (Manual) Eosinophils # (Manual) Basophils # (Manual) PT INR Fibrinogen dRVVT Confirm Interp Factor V Activity POC ABG pH POC ABG pCO2 POC ABG pO2 ABG pO2 ABG HCO3 ABG Base Excess ABG Hemoglobin Oxyhemoglobin Sodium 134 L Potassium Chloride 93.0 L Carbon Dioxide BUN 74 H Creatinine 2.5 H Glucose 137 H POC Glucose 158 H Lactic Acid Calcium 8.2 L Ionized Calcium Phosphorus Magnesium Direct Bilirubin AST ALT Alkaline Phosphatase Lactate Dehydrogenase Troponin T C-Reactive Protein Total Protein Albumin Prealbumin Triglycerides Cholesterol LDL Cholesterol Direct HDL Cholesterol 25-OH Vitamin D Total PTH Intact Urine pH Urine WBC (Auto) Urine Creatinine Urine Total Protein Fluid Total Protein Vancomycin Trough Rheumatoid Factor Complement C4 Miscellaneous Test Crossmatch 10/12/16 10/12/16 10/12/16 12:27 18:18 23:46 WBC RBC Hgb Hct MCV MCH MCHC RDW Plt Count Lymph % (Auto) [place] % (Auto) Lymph # [place] # Baso # Seg Neutrophils % Seg Neuts % (Manual) Lymphocytes % (Manual) Monocytes % (Manual) Eosinophils % (Manual) Basophils % (Manual) Nucleated RBC % Seg Neutrophils # Seg Neutrophils # Man Lymphocytes # (Manual) Monocytes # (Manual) Eosinophils # (Manual) Basophils # (Manual) PT INR Fibrinogen dRVVT Confirm Interp Factor V Activity POC ABG pH POC ABG pCO2 POC ABG pO2 ABG pO2 ABG HCO3 ABG Base Excess ABG Hemoglobin Oxyhemoglobin Sodium Potassium Chloride Carbon Dioxide BUN Creatinine Glucose POC Glucose 153 H 140 H 150 H Lactic Acid Calcium Ionized Calcium Phosphorus Magnesium Direct Bilirubin AST ALT Alkaline Phosphatase Lactate Dehydrogenase Troponin T C-Reactive Protein Total Protein Albumin Prealbumin Triglycerides Cholesterol LDL Cholesterol Direct HDL Cholesterol 25-OH Vitamin D Total PTH Intact Urine pH Urine WBC (Auto) Urine Creatinine Urine Total Protein Fluid Total Protein Vancomycin Trough Rheumatoid Factor Complement C4 Miscellaneous Test Crossmatch 10/13/16 10/13/16 10/13/16 06:22 09:20 12:29 WBC RBC Hgb Hct MCV MCH MCHC RDW Plt Count Lymph % (Auto) [place] % (Auto) Lymph # [place] # Baso # Seg Neutrophils % Seg Neuts % (Manual) Lymphocytes % (Manual) Monocytes % (Manual) Eosinophils % (Manual) Basophils % (Manual) Nucleated RBC % Seg Neutrophils # Seg Neutrophils # Man Lymphocytes # (Manual) Monocytes # (Manual) Eosinophils # (Manual) Basophils # (Manual) PT INR Fibrinogen dRVVT Confirm Interp Factor V Activity POC ABG pH POC ABG pCO2 POC ABG pO2 ABG pO2 ABG HCO3 ABG Base Excess ABG Hemoglobin Oxyhemoglobin Sodium Potassium Chloride Carbon Dioxide BUN Creatinine Glucose POC Glucose 165 H 193 H Lactic Acid Calcium Ionized Calcium Phosphorus Magnesium Direct Bilirubin AST ALT Alkaline Phosphatase Lactate Dehydrogenase Troponin T C-Reactive Protein Total Protein Albumin Prealbumin Triglycerides Cholesterol LDL Cholesterol Direct HDL Cholesterol 25-OH Vitamin D Total PTH Intact Urine pH Urine WBC (Auto) Urine Creatinine Urine Total Protein Fluid Total Protein Vancomycin Trough Rheumatoid Factor Complement C4 Miscellaneous Test Flexitest 1 H Crossmatch 10/13/16 10/13/16 10/13/16 18:09 Unknown Unknown WBC 23.4 H RBC 2.83 L Hgb 8.7 L Hct 26.1 L MCV MCH MCHC RDW 18.1 H Plt Count Lymph % (Auto) [place] % (Auto) Lymph # [place] # Baso # Seg Neutrophils % Seg Neuts % (Manual) Lymphocytes % (Manual) Monocytes % (Manual) Eosinophils % (Manual) Basophils % (Manual) Nucleated RBC % Seg Neutrophils # Seg Neutrophils # Man Lymphocytes # (Manual) Monocytes # (Manual) Eosinophils # (Manual) Basophils # (Manual) PT INR Fibrinogen dRVVT Confirm Interp Factor V Activity POC ABG pH POC ABG pCO2 POC ABG pO2 ABG pO2 ABG HCO3 ABG Base Excess ABG Hemoglobin Oxyhemoglobin Sodium Potassium Chloride 95.8 L Carbon Dioxide BUN 82 H Creatinine 2.6 H Glucose 152 H POC Glucose 166 H Lactic Acid Calcium Ionized Calcium Phosphorus Magnesium Direct Bilirubin AST ALT Alkaline Phosphatase Lactate Dehydrogenase Troponin T C-Reactive Protein Total Protein Albumin Prealbumin Triglycerides Cholesterol LDL Cholesterol Direct HDL Cholesterol 25-OH Vitamin D Total PTH Intact Urine pH Urine WBC (Auto) Urine Creatinine Urine Total Protein Fluid Total Protein Vancomycin Trough Rheumatoid Factor Complement C4 Miscellaneous Test Crossmatch 10/14/16 10/14/16 10/14/16 05:38 06:35 08:10 WBC 20.7 H RBC 2.81 L Hgb 8.4 L Hct 27.2 L MCV MCH MCHC RDW 19.4 H Plt Count Lymph % (Auto) [place] % (Auto) Lymph # [place] # Baso # Seg Neutrophils % Seg Neuts % (Manual) Lymphocytes % (Manual) Monocytes % (Manual) Eosinophils % (Manual) Basophils % (Manual) Nucleated RBC % Seg Neutrophils # Seg Neutrophils # Man Lymphocytes # (Manual) Monocytes # (Manual) Eosinophils # (Manual) Basophils # (Manual) PT INR Fibrinogen dRVVT Confirm Interp Factor V Activity POC ABG pH POC ABG pCO2 POC ABG pO2 ABG pO2 ABG HCO3 ABG Base Excess ABG Hemoglobin Oxyhemoglobin Sodium Potassium Chloride Carbon Dioxide BUN 58 H Creatinine 1.9 H Glucose 169 H POC Glucose 195 H Lactic Acid Calcium Ionized Calcium Phosphorus Magnesium Direct Bilirubin AST ALT Alkaline Phosphatase Lactate Dehydrogenase Troponin T C-Reactive Protein Total Protein Albumin Prealbumin Triglycerides Cholesterol LDL Cholesterol Direct HDL Cholesterol 25-OH Vitamin D Total PTH Intact Urine pH Urine WBC (Auto) Urine Creatinine Urine Total Protein Fluid Total Protein Vancomycin Trough Rheumatoid Factor Complement C4 Miscellaneous Test Crossmatch 10/14/16 10/14/16 10/14/16 11:44 17:13 23:28 WBC RBC Hgb Hct MCV MCH MCHC RDW Plt Count Lymph % (Auto) [place] % (Auto) Lymph # [place] # Baso # Seg Neutrophils % Seg Neuts % (Manual) Lymphocytes % (Manual) Monocytes % (Manual) Eosinophils % (Manual) Basophils % (Manual) Nucleated RBC % Seg Neutrophils # Seg Neutrophils # Man Lymphocytes # (Manual) Monocytes # (Manual) Eosinophils # (Manual) Basophils # (Manual) PT INR Fibrinogen dRVVT Confirm Interp Factor V Activity POC ABG pH POC ABG pCO2 POC ABG pO2 ABG pO2 ABG HCO3 ABG Base Excess ABG Hemoglobin Oxyhemoglobin Sodium Potassium Chloride Carbon Dioxide BUN Creatinine Glucose POC Glucose 174 H 121 H 151 H Lactic Acid Calcium Ionized Calcium Phosphorus Magnesium Direct Bilirubin AST ALT Alkaline Phosphatase Lactate Dehydrogenase Troponin T C-Reactive Protein Total Protein Albumin Prealbumin Triglycerides Cholesterol LDL Cholesterol Direct HDL Cholesterol 25-OH Vitamin D Total PTH Intact Urine pH Urine WBC (Auto) Urine Creatinine Urine Total Protein Fluid Total Protein Vancomycin Trough Rheumatoid Factor Complement C4 Miscellaneous Test Crossmatch 10/15/16 10/15/1610/15/17 05:06 12:26 17:48 WBC RBC Hgb Hct MCV MCH MCHC RDW Plt Count Lymph % (Auto) [place] % (Auto) Lymph # [place] # Baso # Seg Neutrophils % Seg Neuts % (Manual) Lymphocytes % (Manual) Monocytes % (Manual) Eosinophils % (Manual) Basophils % (Manual) Nucleated RBC % Seg Neutrophils # Seg Neutrophils # Man Lymphocytes # (Manual) Monocytes # (Manual) Eosinophils # (Manual) Basophils # (Manual) PT INR Fibrinogen dRVVT Confirm Interp Factor V Activity POC ABG pH POC ABG pCO2 POC ABG pO2 ABG pO2 ABG HCO3 ABG Base Excess ABG Hemoglobin Oxyhemoglobin Sodium Potassium Chloride Carbon Dioxide BUN Creatinine Glucose POC Glucose 151 H 149 H 153 H Lactic Acid Calcium Ionized Calcium Phosphorus Magnesium Direct Bilirubin AST ALT Alkaline Phosphatase Lactate Dehydrogenase Troponin T C-Reactive Protein Total Protein Albumin Prealbumin Triglycerides Cholesterol LDL Cholesterol Direct HDL Cholesterol 25-OH Vitamin D Total PTH Intact Urine pH Urine WBC (Auto) Urine Creatinine Urine Total Protein Fluid Total Protein Vancomycin Trough Rheumatoid Factor Complement C4 Miscellaneous Test Crossmatch 10/15/16 10/15/16 10/16/16 Unknown Unknown 00:02 WBC 23.4 H RBC 2.78 L Hgb 8.5 L Hct 25.7 L MCV MCH MCHC RDW 18.7 H Plt Count Lymph % (Auto) [place] % (Auto) Lymph # [place] # Baso # Seg Neutrophils % Seg Neuts % (Manual) Lymphocytes % (Manual) Monocytes % (Manual) Eosinophils % (Manual) Basophils % (Manual) Nucleated RBC % Seg Neutrophils # Seg Neutrophils # Man Lymphocytes # (Manual) Monocytes # (Manual) Eosinophils # (Manual) Basophils # (Manual) PT INR Fibrinogen dRVVT Confirm Interp Factor V Activity POC ABG pH POC ABG pCO2 POC ABG pO2 ABG pO2 ABG HCO3 ABG Base Excess ABG Hemoglobin Oxyhemoglobin Sodium Potassium Chloride Carbon Dioxide BUN 73 H Creatinine 2.3 H Glucose 120 H POC Glucose 137 H Lactic Acid Calcium Ionized Calcium Phosphorus Magnesium Direct Bilirubin AST ALT Alkaline Phosphatase Lactate Dehydrogenase Troponin T C-Reactive Protein Total Protein Albumin Prealbumin Triglycerides Cholesterol LDL Cholesterol Direct HDL Cholesterol 25-OH Vitamin D Total PTH Intact Urine pH Urine WBC (Auto) Urine Creatinine Urine Total Protein Fluid Total Protein Vancomycin Trough Rheumatoid Factor Complement C4 Miscellaneous Test Crossmatch 10/16/16 10/16/16 10/16/16 05:44 06:25 06:25 WBC 22.5 H RBC 2.76 L Hgb 8.3 L Hct 25.2 L MCV MCH MCHC RDW 18.3 H Plt Count Lymph % (Auto) [place] % (Auto) Lymph # [place] # Baso # Seg Neutrophils % Seg Neuts % (Manual) Lymphocytes % (Manual) Monocytes % (Manual) Eosinophils % (Manual) Basophils % (Manual) Nucleated RBC % Seg Neutrophils # Seg Neutrophils # Man Lymphocytes # (Manual) Monocytes # (Manual) Eosinophils # (Manual) Basophils # (Manual) PT INR Fibrinogen dRVVT Confirm Interp Factor V Activity POC ABG pH POC ABG pCO2 POC ABG pO2 ABG pO2 ABG HCO3 ABG Base Excess ABG Hemoglobin Oxyhemoglobin Sodium Potassium Chloride Carbon Dioxide BUN 92 H Creatinine 3.0 H Glucose 138 H POC Glucose 110 H Lactic Acid Calcium Ionized Calcium Phosphorus Magnesium Direct Bilirubin AST ALT Alkaline Phosphatase Lactate Dehydrogenase Troponin T C-Reactive Protein Total Protein Albumin Prealbumin Triglycerides Cholesterol LDL Cholesterol Direct HDL Cholesterol 25-OH Vitamin D Total PTH Intact Urine pH Urine WBC (Auto) Urine Creatinine Urine Total Protein Fluid Total Protein Vancomycin Trough Rheumatoid Factor Complement C4 Miscellaneous Test Crossmatch 10/16/16 10/16/16 10/16/16 11:27 11:48 17:36 WBC RBC Hgb Hct MCV MCH MCHC RDW Plt Count Lymph % (Auto) [place] % (Auto) Lymph # [place] # Baso # Seg Neutrophils % Seg Neuts % (Manual) Lymphocytes % (Manual) Monocytes % (Manual) Eosinophils % (Manual) Basophils % (Manual) Nucleated RBC % Seg Neutrophils # Seg Neutrophils # Man Lymphocytes # (Manual) Monocytes # (Manual) Eosinophils # (Manual) Basophils # (Manual) PT INR Fibrinogen dRVVT Confirm Interp Factor V Activity POC ABG pH 7.582 H POC ABG pCO2 27.4 L POC ABG pO2 110 H ABG pO2 ABG HCO3 ABG Base Excess ABG Hemoglobin Oxyhemoglobin Sodium Potassium Chloride Carbon Dioxide BUN Creatinine Glucose POC Glucose 121 H 133 H Lactic Acid Calcium Ionized Calcium Phosphorus Magnesium Direct Bilirubin AST ALT Alkaline Phosphatase Lactate Dehydrogenase Troponin T C-Reactive Protein Total Protein Albumin Prealbumin Triglycerides Cholesterol LDL Cholesterol Direct HDL Cholesterol 25-OH Vitamin D Total PTH Intact Urine pH Urine WBC (Auto) Urine Creatinine Urine Total Protein Fluid Total Protein Vancomycin Trough Rheumatoid Factor Complement C4 Miscellaneous Test Crossmatch 10/16/16 10/17/16 10/17/16 20:48 04:24 04:24 WBC 21.4 H RBC 2.72 L Hgb 8.0 L Hct 25.2 L MCV MCH MCHC RDW 18.0 H Plt Count Lymph % (Auto) [place] % (Auto) Lymph # [place] # Baso # Seg Neutrophils % Seg Neuts % (Manual) Lymphocytes % (Manual) Monocytes % (Manual) Eosinophils % (Manual) Basophils % (Manual) Nucleated RBC % Seg Neutrophils # Seg Neutrophils # Man Lymphocytes # (Manual) Monocytes # (Manual) Eosinophils # (Manual) Basophils # (Manual) PT INR Fibrinogen dRVVT Confirm Interp Factor V Activity POC ABG pH 7.561 H POC ABG pCO2 24.4 L POC ABG pO2 77 L ABG pO2 ABG HCO3 ABG Base Excess ABG Hemoglobin Oxyhemoglobin Sodium 148 H Potassium Chloride Carbon Dioxide BUN 104 H Creatinine 3.0 H Glucose 149 H POC Glucose Lactic Acid Calcium Ionized Calcium Phosphorus Magnesium Direct Bilirubin AST ALT Alkaline Phosphatase 138 H Lactate Dehydrogenase Troponin T C-Reactive Protein Total Protein 6.2 L Albumin 1.5 L Prealbumin Triglycerides Cholesterol LDL Cholesterol Direct HDL Cholesterol 25-OH Vitamin D Total PTH Intact Urine pH Urine WBC (Auto) Urine Creatinine Urine Total Protein Fluid Total Protein Vancomycin Trough Rheumatoid Factor Complement C4 Miscellaneous Test Crossmatch 10/17/16 10/17/16 10/17/16 06:02 12:17 17:14 WBC RBC Hgb Hct MCV MCH MCHC RDW Plt Count Lymph % (Auto) [place] % (Auto) Lymph # [place] # Baso # Seg Neutrophils % Seg Neuts % (Manual) Lymphocytes % (Manual) Monocytes % (Manual) Eosinophils % (Manual) Basophils % (Manual) Nucleated RBC % Seg Neutrophils # Seg Neutrophils # Man Lymphocytes # (Manual) Monocytes # (Manual) Eosinophils # (Manual) Basophils # (Manual) PT INR Fibrinogen dRVVT Confirm Interp Factor V Activity POC ABG pH POC ABG pCO2 POC ABG pO2 ABG pO2 ABG HCO3 ABG Base Excess ABG Hemoglobin Oxyhemoglobin Sodium Potassium Chloride Carbon Dioxide BUN Creatinine Glucose POC Glucose 170 H 167 H 126 H Lactic Acid Calcium Ionized Calcium Phosphorus Magnesium Direct Bilirubin AST ALT Alkaline Phosphatase Lactate Dehydrogenase Troponin T C-Reactive Protein Total Protein Albumin Prealbumin Triglycerides Cholesterol LDL Cholesterol Direct HDL Cholesterol 25-OH Vitamin D Total PTH Intact Urine pH Urine WBC (Auto) Urine Creatinine Urine Total Protein Fluid Total Protein Vancomycin Trough Rheumatoid Factor Complement C4 Miscellaneous Test Crossmatch 10/17/16 10/18/16 10/18/16 23:17 04:00 04:00 WBC 20.7 H RBC 2.47 L Hgb 7.4 L Hct 22.9 L MCV MCH MCHC RDW 17.5 H Plt Count Lymph % (Auto) [place] % (Auto) Lymph # [place] # Baso # Seg Neutrophils % Seg Neuts % (Manual) Lymphocytes % (Manual) Monocytes % (Manual) Eosinophils % (Manual) Basophils % (Manual) Nucleated RBC % Seg Neutrophils # Seg Neutrophils # Man Lymphocytes # (Manual) Monocytes # (Manual) Eosinophils # (Manual) Basophils # (Manual) PT INR Fibrinogen dRVVT Confirm Interp Factor V Activity POC ABG pH POC ABG pCO2 POC ABG pO2 ABG pO2 ABG HCO3 ABG Base Excess ABG Hemoglobin Oxyhemoglobin Sodium 149 H Potassium Chloride 107.9 H Carbon Dioxide 20 L BUN 117 H Creatinine 3.2 H Glucose 119 H POC Glucose 121 H Lactic Acid Calcium Ionized Calcium Phosphorus Magnesium Direct Bilirubin AST ALT Alkaline Phosphatase Lactate Dehydrogenase Troponin T C-Reactive Protein Total Protein Albumin Prealbumin Triglycerides Cholesterol LDL Cholesterol Direct HDL Cholesterol 25-OH Vitamin D Total PTH Intact Urine pH Urine WBC (Auto) Urine Creatinine Urine Total Protein Fluid Total Protein Vancomycin Trough Rheumatoid Factor Complement C4 Miscellaneous Test Crossmatch 10/18/16 10/18/16 10/18/16 05:23 10:46 17:30 WBC RBC Hgb Hct MCV MCH MCHC RDW Plt Count Lymph % (Auto) [place] % (Auto) Lymph # [place] # Baso # Seg Neutrophils % Seg Neuts % (Manual) Lymphocytes % (Manual) Monocytes % (Manual) Eosinophils % (Manual) Basophils % (Manual) Nucleated RBC % Seg Neutrophils # Seg Neutrophils # Man Lymphocytes # (Manual) Monocytes # (Manual) Eosinophils # (Manual) Basophils # (Manual) PT INR Fibrinogen dRVVT Confirm Interp Factor V Activity POC ABG pH POC ABG pCO2 POC ABG pO2 ABG pO2 ABG HCO3 ABG Base Excess ABG Hemoglobin Oxyhemoglobin Sodium Potassium Chloride Carbon Dioxide BUN Creatinine Glucose POC Glucose 119 H 155 H 124 H Lactic Acid Calcium Ionized Calcium Phosphorus Magnesium Direct Bilirubin AST ALT Alkaline Phosphatase Lactate Dehydrogenase Troponin T C-Reactive Protein Total Protein Albumin Prealbumin Triglycerides Cholesterol LDL Cholesterol Direct HDL Cholesterol 25-OH Vitamin D Total PTH Intact Urine pH Urine WBC (Auto) Urine Creatinine Urine Total Protein Fluid Total Protein Vancomycin Trough Rheumatoid Factor Complement C4 Miscellaneous Test Crossmatch 10/19/16 10/19/16 10/19/16 04:00 04:00 05:25 WBC 17.4 H RBC 2.54 L Hgb 7.7 L Hct 23.6 L MCV MCH MCHC RDW 17.3 H Plt Count Lymph % (Auto) [place] % (Auto) Lymph # [place] # Baso # Seg Neutrophils % Seg Neuts % (Manual) Lymphocytes % (Manual) Monocytes % (Manual) Eosinophils % (Manual) Basophils % (Manual) Nucleated RBC % Seg Neutrophils # Seg Neutrophils # Man Lymphocytes # (Manual) Monocytes # (Manual) Eosinophils # (Manual) Basophils # (Manual) PT INR Fibrinogen dRVVT Confirm Interp Factor V Activity POC ABG pH POC ABG pCO2 POC ABG pO2 ABG pO2 ABG HCO3 ABG Base Excess ABG Hemoglobin Oxyhemoglobin Sodium Potassium Chloride Carbon Dioxide BUN 72 H Creatinine 2.1 H Glucose 116 H POC Glucose 119 H Lactic Acid Calcium Ionized Calcium Phosphorus Magnesium Direct Bilirubin AST ALT Alkaline Phosphatase Lactate Dehydrogenase Troponin T C-Reactive Protein Total Protein Albumin Prealbumin Triglycerides Cholesterol LDL Cholesterol Direct HDL Cholesterol 25-OH Vitamin D Total PTH Intact Urine pH Urine WBC (Auto) Urine Creatinine Urine Total Protein Fluid Total Protein Vancomycin Trough Rheumatoid Factor Complement C4 Miscellaneous Test Crossmatch 10/19/16 10/19/16 10/20/16 11:46 23:59 06:00 WBC RBC Hgb Hct MCV MCH MCHC RDW Plt Count Lymph % (Auto) [place] % (Auto) Lymph # [place] # Baso # Seg Neutrophils % Seg Neuts % (Manual) Lymphocytes % (Manual) Monocytes % (Manual) Eosinophils % (Manual) Basophils % (Manual) Nucleated RBC % Seg Neutrophils # Seg Neutrophils # Man Lymphocytes # (Manual) Monocytes # (Manual) Eosinophils # (Manual) Basophils # (Manual) PT INR Fibrinogen dRVVT Confirm Interp Factor V Activity POC ABG pH POC ABG pCO2 POC ABG pO2 ABG pO2 ABG HCO3 ABG Base Excess ABG Hemoglobin Oxyhemoglobin Sodium Potassium Chloride Carbon Dioxide 17 L BUN 94 H Creatinine 2.7 H Glucose POC Glucose 116 H 117 H Lactic Acid Calcium Ionized Calcium Phosphorus Magnesium Direct Bilirubin AST ALT Alkaline Phosphatase Lactate Dehydrogenase Troponin T C-Reactive Protein Total Protein Albumin Prealbumin Triglycerides Cholesterol LDL Cholesterol Direct HDL Cholesterol 25-OH Vitamin D Total PTH Intact Urine pH Urine WBC (Auto) Urine Creatinine Urine Total Protein Fluid Total Protein Vancomycin Trough Rheumatoid Factor Complement C4 Miscellaneous Test Crossmatch 10/20/16 10/20/16 10/20/16 06:00 11:49 16:00 WBC 19.7 H RBC 2.51 L Hgb 7.7 L Hct 23.5 L MCV MCH MCHC RDW 17.5 H Plt Count Lymph % (Auto) [place] % (Auto) Lymph # [place] # Baso # Seg Neutrophils % Seg Neuts % (Manual) Lymphocytes % (Manual) Monocytes % (Manual) Eosinophils % (Manual) Basophils % (Manual) Nucleated RBC % Seg Neutrophils # Seg Neutrophils # Man Lymphocytes # (Manual) Monocytes # (Manual) Eosinophils # (Manual) Basophils # (Manual) PT INR Fibrinogen dRVVT Confirm Interp Factor V Activity POC ABG pH POC ABG pCO2 POC ABG pO2 ABG pO2 ABG HCO3 ABG Base Excess ABG Hemoglobin Oxyhemoglobin Sodium Potassium Chloride Carbon Dioxide BUN Creatinine Glucose POC Glucose 117 H Lactic Acid Calcium Ionized Calcium Phosphorus Magnesium Direct Bilirubin AST ALT Alkaline Phosphatase Lactate Dehydrogenase Troponin T C-Reactive Protein Total Protein Albumin Prealbumin Triglycerides Cholesterol LDL Cholesterol Direct HDL Cholesterol 25-OH Vitamin D Total PTH Intact Urine pH Urine WBC (Auto) Urine Creatinine Urine Total Protein Fluid Total Protein Vancomycin Trough Rheumatoid Factor Complement C4 Miscellaneous Test Flexitest 1 H Crossmatch 10/20/16 10/20/16 10/21/16 18:36 23:39 04:00 WBC RBC Hgb Hct MCV MCH MCHC RDW Plt Count Lymph % (Auto) [place] % (Auto) Lymph # [place] # Baso # Seg Neutrophils % Seg Neuts % (Manual) Lymphocytes % (Manual) Monocytes % (Manual) Eosinophils % (Manual) Basophils % (Manual) Nucleated RBC % Seg Neutrophils # Seg Neutrophils # Man Lymphocytes # (Manual) Monocytes # (Manual) Eosinophils # (Manual) Basophils # (Manual) PT INR Fibrinogen dRVVT Confirm Interp Factor V Activity POC ABG pH POC ABG pCO2 POC ABG pO2 ABG pO2 ABG HCO3 ABG Base Excess ABG Hemoglobin Oxyhemoglobin Sodium Potassium 5.4 H D Chloride Carbon Dioxide 15 L BUN 110 H Creatinine 3.0 H Glucose POC Glucose 127 H 114 H Lactic Acid Calcium Ionized Calcium Phosphorus Magnesium Direct Bilirubin AST ALT Alkaline Phosphatase Lactate Dehydrogenase Troponin T C-Reactive Protein Total Protein Albumin Prealbumin Triglycerides Cholesterol LDL Cholesterol Direct HDL Cholesterol 25-OH Vitamin D Total PTH Intact Urine pH Urine WBC (Auto) Urine Creatinine Urine Total Protein Fluid Total Protein Vancomycin Trough Rheumatoid Factor Complement C4 Miscellaneous Test Crossmatch 10/21/16 10/21/16 10/22/16 05:54 23:46 05:18 WBC RBC Hgb Hct MCV MCH MCHC RDW Plt Count Lymph % (Auto) [place] % (Auto) Lymph # [place] # Baso # Seg Neutrophils % Seg Neuts % (Manual) Lymphocytes % (Manual) Monocytes % (Manual) Eosinophils % (Manual) Basophils % (Manual) Nucleated RBC % Seg Neutrophils # Seg Neutrophils # Man Lymphocytes # (Manual) Monocytes # (Manual) Eosinophils # (Manual) Basophils # (Manual) PT INR Fibrinogen dRVVT Confirm Interp Factor V Activity POC ABG pH POC ABG pCO2 POC ABG pO2 ABG pO2 ABG HCO3 ABG Base Excess ABG Hemoglobin Oxyhemoglobin Sodium Potassium Chloride Carbon Dioxide BUN Creatinine Glucose POC Glucose 119 H 108 H 109 H Lactic Acid Calcium Ionized Calcium Phosphorus Magnesium Direct Bilirubin AST ALT Alkaline Phosphatase Lactate Dehydrogenase Troponin T C-Reactive Protein Total Protein Albumin Prealbumin Triglycerides Cholesterol LDL Cholesterol Direct HDL Cholesterol 25-OH Vitamin D Total PTH Intact Urine pH Urine WBC (Auto) Urine Creatinine Urine Total Protein Fluid Total Protein Vancomycin Trough Rheumatoid Factor Complement C4 Miscellaneous Test Crossmatch 10/22/16 10/22/16 10/22/16 06:40 06:40 06:40 WBC 14.0 H RBC 2.03 L Hgb 7.0 L Hct 20.5 L MCV 98 H MCH 34 H MCHC 35 H RDW 17.8 H Plt Count Lymph % (Auto) [place] % (Auto) 9.9 H Lymph # [place] # 1.4 H Baso # 0.2 H Seg Neutrophils % 72.0 H Seg Neuts % (Manual) Lymphocytes % (Manual) Monocytes % (Manual) Eosinophils % (Manual) Basophils % (Manual) Nucleated RBC % Seg Neutrophils # 10.0 H Seg Neutrophils # Man Lymphocytes # (Manual) Monocytes # (Manual) Eosinophils # (Manual) Basophils # (Manual) PT INR Fibrinogen dRVVT Confirm Interp Factor V Activity POC ABG pH POC ABG pCO2 POC ABG pO2 ABG pO2 ABG HCO3 ABG Base Excess ABG Hemoglobin Oxyhemoglobin Sodium 130 L D Potassium Chloride 92.4 L Carbon Dioxide 20 L BUN 50 H Creatinine 1.6 H Glucose 589 H* POC Glucose Lactic Acid Calcium 7.8 L D Ionized Calcium Phosphorus Magnesium 1.60 L Direct Bilirubin AST ALT Alkaline Phosphatase Lactate Dehydrogenase Troponin T C-Reactive Protein Total Protein Albumin Prealbumin Triglycerides Cholesterol LDL Cholesterol Direct HDL Cholesterol 25-OH Vitamin D Total PTH Intact Urine pH Urine WBC (Auto) Urine Creatinine Urine Total Protein Fluid Total Protein Vancomycin Trough Rheumatoid Factor Complement C4 Miscellaneous Test Crossmatch 10/22/16 10/22/16 10/22/16 11:39 16:44 23:36 WBC RBC Hgb Hct MCV MCH MCHC RDW Plt Count Lymph % (Auto) [place] % (Auto) Lymph # [place] # Baso # Seg Neutrophils % Seg Neuts % (Manual) Lymphocytes % (Manual) Monocytes % (Manual) Eosinophils % (Manual) Basophils % (Manual) Nucleated RBC % Seg Neutrophils # Seg Neutrophils # Man Lymphocytes # (Manual) Monocytes # (Manual) Eosinophils # (Manual) Basophils # (Manual) PT INR Fibrinogen dRVVT Confirm Interp Factor V Activity POC ABG pH POC ABG pCO2 POC ABG pO2 ABG pO2 ABG HCO3 ABG Base Excess ABG Hemoglobin Oxyhemoglobin Sodium Potassium Chloride Carbon Dioxide BUN Creatinine Glucose POC Glucose 142 H 163 H 123 H Lactic Acid Calcium Ionized Calcium Phosphorus Magnesium Direct Bilirubin AST ALT Alkaline Phosphatase Lactate Dehydrogenase Troponin T C-Reactive Protein Total Protein Albumin Prealbumin Triglycerides Cholesterol LDL Cholesterol Direct HDL Cholesterol 25-OH Vitamin D Total PTH Intact Urine pH Urine WBC (Auto) Urine Creatinine Urine Total Protein Fluid Total Protein Vancomycin Trough Rheumatoid Factor Complement C4 Miscellaneous Test Crossmatch 10/23/16 10/23/16 10/23/16 04:58 06:00 12:12 WBC RBC Hgb Hct MCV MCH MCHC RDW Plt Count Lymph % (Auto) [place] % (Auto) Lymph # [place] # Baso # Seg Neutrophils % Seg Neuts % (Manual) Lymphocytes % (Manual) Monocytes % (Manual) Eosinophils % (Manual) Basophils % (Manual) Nucleated RBC % Seg Neutrophils # Seg Neutrophils # Man Lymphocytes # (Manual) Monocytes # (Manual) Eosinophils # (Manual) Basophils # (Manual) PT INR Fibrinogen dRVVT Confirm Interp Factor V Activity POC ABG pH POC ABG pCO2 POC ABG pO2 ABG pO2 ABG HCO3 ABG Base Excess ABG Hemoglobin Oxyhemoglobin Sodium 133 L Potassium 3.5 L Chloride 96.1 L Carbon Dioxide 18 L BUN 76 H Creatinine 2.1 H Glucose POC Glucose 133 H 138 H Lactic Acid Calcium 8.3 L Ionized Calcium Phosphorus Magnesium Direct Bilirubin AST ALT Alkaline Phosphatase Lactate Dehydrogenase Troponin T C-Reactive Protein Total Protein Albumin Prealbumin Triglycerides Cholesterol LDL Cholesterol Direct HDL Cholesterol 25-OH Vitamin D Total PTH Intact Urine pH Urine WBC (Auto) Urine Creatinine Urine Total Protein Fluid Total Protein Vancomycin Trough Rheumatoid Factor Complement C4 Miscellaneous Test Crossmatch 10/23/16 10/23/16 10/24/16 16:53 23:37 04:00 WBC RBC Hgb Hct MCV MCH MCHC RDW Plt Count Lymph % (Auto) [place] % (Auto) Lymph # [place] # Baso # Seg Neutrophils % Seg Neuts % (Manual) Lymphocytes % (Manual) Monocytes % (Manual) Eosinophils % (Manual) Basophils % (Manual) Nucleated RBC % Seg Neutrophils # Seg Neutrophils # Man Lymphocytes # (Manual) Monocytes # (Manual) Eosinophils # (Manual) Basophils # (Manual) PT INR Fibrinogen dRVVT Confirm Interp Factor V Activity POC ABG pH POC ABG pCO2 POC ABG pO2 ABG pO2 ABG HCO3 ABG Base Excess ABG Hemoglobin Oxyhemoglobin Sodium 131 L Potassium Chloride 94.5 L Carbon Dioxide 19 L BUN 97 H Creatinine 2.6 H Glucose 110 H POC Glucose 125 H 123 H Lactic Acid Calcium 8.3 L Ionized Calcium Phosphorus Magnesium Direct Bilirubin AST ALT Alkaline Phosphatase Lactate Dehydrogenase Troponin T C-Reactive Protein Total Protein Albumin Prealbumin Triglycerides Cholesterol LDL Cholesterol Direct HDL Cholesterol 25-OH Vitamin D Total PTH Intact Urine pH Urine WBC (Auto) Urine Creatinine Urine Total Protein Fluid Total Protein Vancomycin Trough Rheumatoid Factor Complement C4 Miscellaneous Test Crossmatch 10/24/16 10/24/16 10/24/16 07:49 11:39 17:52 WBC RBC Hgb 6.0 L Hct 19.7 L* MCV MCH MCHC RDW Plt Count Lymph % (Auto) [place] % (Auto) Lymph # [place] # Baso # Seg Neutrophils % Seg Neuts % (Manual) Lymphocytes % (Manual) Monocytes % (Manual) Eosinophils % (Manual) Basophils % (Manual) Nucleated RBC % Seg Neutrophils # Seg Neutrophils # Man Lymphocytes # (Manual) Monocytes # (Manual) Eosinophils # (Manual) Basophils # (Manual) PT INR Fibrinogen dRVVT Confirm Interp Factor V Activity POC ABG pH POC ABG pCO2 POC ABG pO2 ABG pO2 ABG HCO3 ABG Base Excess ABG Hemoglobin Oxyhemoglobin Sodium Potassium Chloride Carbon Dioxide BUN Creatinine Glucose POC Glucose 106 H 158 H Lactic Acid Calcium Ionized Calcium Phosphorus Magnesium Direct Bilirubin AST ALT Alkaline Phosphatase Lactate Dehydrogenase Troponin T C-Reactive Protein Total Protein Albumin Prealbumin Triglycerides Cholesterol LDL Cholesterol Direct HDL Cholesterol 25-OH Vitamin D Total PTH Intact Urine pH Urine WBC (Auto) Urine Creatinine Urine Total Protein Fluid Total Protein Vancomycin Trough Rheumatoid Factor Complement C4 Miscellaneous Test Crossmatch 10/24/16 10/24/16 10/24/16 20:00 22:27 Unknown WBC RBC Hgb 9.4 L D Hct 27.5 L D MCV MCH MCHC RDW Plt Count Lymph % (Auto) [place] % (Auto) Lymph # [place] # Baso # Seg Neutrophils % Seg Neuts % (Manual) Lymphocytes % (Manual) Monocytes % (Manual) Eosinophils % (Manual) Basophils % (Manual) Nucleated RBC % Seg Neutrophils # Seg Neutrophils # Man Lymphocytes # (Manual) Monocytes # (Manual) Eosinophils # (Manual) Basophils # (Manual) PT INR Fibrinogen dRVVT Confirm Interp Factor V Activity POC ABG pH POC ABG pCO2 POC ABG pO2 ABG pO2 ABG HCO3 ABG Base Excess ABG Hemoglobin Oxyhemoglobin Sodium Potassium Chloride Carbon Dioxide BUN Creatinine Glucose POC Glucose 125 H Lactic Acid Calcium Ionized Calcium Phosphorus Magnesium Direct Bilirubin AST ALT Alkaline Phosphatase Lactate Dehydrogenase Troponin T C-Reactive Protein Total Protein Albumin Prealbumin Triglycerides Cholesterol LDL Cholesterol Direct HDL Cholesterol 25-OH Vitamin D Total PTH Intact Urine pH Urine WBC (Auto) Urine Creatinine Urine Total Protein Fluid Total Protein Vancomycin Trough Rheumatoid Factor Complement C4 Miscellaneous Test Crossmatch See Detail 10/25/16 10/25/16 10/25/16 04:00 04:00 04:00 WBC 14.2 H RBC 2.98 L Hgb 9.0 L Hct 26.2 L MCV MCH MCHC RDW 16.6 H Plt Count Lymph % (Auto) [place] % (Auto) 10.7 H Lymph # [place] # 1.5 H Baso # Seg Neutrophils % 73.6 H Seg Neuts % (Manual) Lymphocytes % (Manual) Monocytes % (Manual) Eosinophils % (Manual) Basophils % (Manual) Nucleated RBC % Seg Neutrophils # 10.5 H Seg Neutrophils # Man Lymphocytes # (Manual) Monocytes # (Manual) Eosinophils # (Manual) Basophils # (Manual) PT INR Fibrinogen dRVVT Confirm Interp Factor V Activity POC ABG pH POC ABG pCO2 POC ABG pO2 ABG pO2 ABG HCO3 ABG Base Excess ABG Hemoglobin Oxyhemoglobin Sodium 132 L Potassium Chloride 94.7 L Carbon Dioxide BUN 51 H Creatinine 1.6 H Glucose 130 H POC Glucose Lactic Acid Calcium 8.3 L Ionized Calcium Phosphorus 1.60 L D Magnesium Direct Bilirubin AST ALT Alkaline Phosphatase Lactate Dehydrogenase Troponin T C-Reactive Protein Total Protein Albumin Prealbumin Triglycerides Cholesterol LDL Cholesterol Direct HDL Cholesterol 25-OH Vitamin D Total PTH Intact Urine pH Urine WBC (Auto) Urine Creatinine Urine Total Protein Fluid Total Protein Vancomycin Trough Rheumatoid Factor Complement C4 Miscellaneous Test Crossmatch 10/25/16 10/25/16 10/25/16 04:32 11:48 17:22 WBC RBC Hgb Hct MCV MCH MCHC RDW Plt Count Lymph % (Auto) [place] % (Auto) Lymph # [place] # Baso # Seg Neutrophils % Seg Neuts % (Manual) Lymphocytes % (Manual) Monocytes % (Manual) Eosinophils % (Manual) Basophils % (Manual) Nucleated RBC % Seg Neutrophils # Seg Neutrophils # Man Lymphocytes # (Manual) Monocytes # (Manual) Eosinophils # (Manual) Basophils # (Manual) PT INR Fibrinogen dRVVT Confirm Interp Factor V Activity POC ABG pH POC ABG pCO2 POC ABG pO2 ABG pO2 ABG HCO3 ABG Base Excess ABG Hemoglobin Oxyhemoglobin Sodium Potassium Chloride Carbon Dioxide BUN Creatinine Glucose POC Glucose 124 H 171 H 120 H Lactic Acid Calcium Ionized Calcium Phosphorus Magnesium Direct Bilirubin AST ALT Alkaline Phosphatase Lactate Dehydrogenase Troponin T C-Reactive Protein Total Protein Albumin Prealbumin Triglycerides Cholesterol LDL Cholesterol Direct HDL Cholesterol 25-OH Vitamin D Total PTH Intact Urine pH Urine WBC (Auto) Urine Creatinine Urine Total Protein Fluid Total Protein Vancomycin Trough Rheumatoid Factor Complement C4 Miscellaneous Test Crossmatch 10/26/16 10/26/16 10/26/16 04:54 07:06 07:06 WBC 16.9 H RBC 3.06 L Hgb 9.1 L Hct 26.9 L MCV MCH MCHC RDW 16.9 H Plt Count Lymph % (Auto) [place] % (Auto) Lymph # [place] # Baso # Seg Neutrophils % Seg Neuts % (Manual) 71.0 H Lymphocytes % (Manual) 5.0 L Monocytes % (Manual) 12.0 H Eosinophils % (Manual) Basophils % (Manual) Nucleated RBC % Seg Neutrophils # Seg Neutrophils # Man 12.0 H Lymphocytes # (Manual) 0.8 L Monocytes # (Manual) 2.0 H Eosinophils # (Manual) Basophils # (Manual) PT INR Fibrinogen dRVVT Confirm Interp Factor V Activity POC ABG pH POC ABG pCO2 POC ABG pO2 ABG pO2 ABG HCO3 ABG Base Excess ABG Hemoglobin Oxyhemoglobin Sodium 135 L Potassium Chloride 97.1 L Carbon Dioxide BUN 73 H Creatinine 2.2 H Glucose 117 H POC Glucose 123 H Lactic Acid Calcium Ionized Calcium Phosphorus 1.70 L Magnesium Direct Bilirubin AST ALT Alkaline Phosphatase Lactate Dehydrogenase Troponin T C-Reactive Protein Total Protein Albumin Prealbumin Triglycerides Cholesterol LDL Cholesterol Direct HDL Cholesterol 25-OH Vitamin D Total PTH Intact Urine pH Urine WBC (Auto) Urine Creatinine Urine Total Protein Fluid Total Protein Vancomycin Trough Rheumatoid Factor Complement C4 Miscellaneous Test Crossmatch 10/26/16 10/26/16 10/26/16 12:12 17:29 23:42 WBC RBC Hgb Hct MCV MCH MCHC RDW Plt Count Lymph % (Auto) [place] % (Auto) Lymph # [place] # Baso # Seg Neutrophils % Seg Neuts % (Manual) Lymphocytes % (Manual) Monocytes % (Manual) Eosinophils % (Manual) Basophils % (Manual) Nucleated RBC % Seg Neutrophils # Seg Neutrophils # Man Lymphocytes # (Manual) Monocytes # (Manual) Eosinophils # (Manual) Basophils # (Manual) PT INR Fibrinogen dRVVT Confirm Interp Factor V Activity POC ABG pH POC ABG pCO2 POC ABG pO2 ABG pO2 ABG HCO3 ABG Base Excess ABG Hemoglobin Oxyhemoglobin Sodium Potassium Chloride Carbon Dioxide BUN Creatinine Glucose POC Glucose 126 H 161 H 118 H Lactic Acid Calcium Ionized Calcium Phosphorus Magnesium Direct Bilirubin AST ALT Alkaline Phosphatase Lactate Dehydrogenase Troponin T C-Reactive Protein Total Protein Albumin Prealbumin Triglycerides Cholesterol LDL Cholesterol Direct HDL Cholesterol 25-OH Vitamin D Total PTH Intact Urine pH Urine WBC (Auto) Urine Creatinine Urine Total Protein Fluid Total Protein Vancomycin Trough Rheumatoid Factor Complement C4 Miscellaneous Test Crossmatch 10/27/16 10/27/16 10/27/16 05:03 06:30 06:30 WBC 13.9 H RBC 3.09 L Hgb 9.2 L Hct 27.5 L MCV MCH MCHC RDW 17.0 H Plt Count Lymph % (Auto) [place] % (Auto) Lymph # [place] # Baso # Seg Neutrophils % Seg Neuts % (Manual) 78.0 H Lymphocytes % (Manual) Monocytes % (Manual) Eosinophils % (Manual) Basophils % (Manual) Nucleated RBC % 2.0 H Seg Neutrophils # Seg Neutrophils # Man 10.8 H Lymphocytes # (Manual) Monocytes # (Manual) 1.0 H Eosinophils # (Manual) Basophils # (Manual) PT INR Fibrinogen dRVVT Confirm Interp Factor V Activity POC ABG pH POC ABG pCO2 POC ABG pO2 ABG pO2 ABG HCO3 ABG Base Excess ABG Hemoglobin Oxyhemoglobin Sodium Potassium Chloride Carbon Dioxide BUN 40 H Creatinine 1.5 H Glucose 135 H POC Glucose 107 H Lactic Acid Calcium 8.3 L Ionized Calcium Phosphorus 1.30 L D Magnesium Direct Bilirubin AST ALT Alkaline Phosphatase Lactate Dehydrogenase Troponin T C-Reactive Protein Total Protein Albumin Prealbumin Triglycerides Cholesterol LDL Cholesterol Direct HDL Cholesterol 25-OH Vitamin D Total PTH Intact Urine pH Urine WBC (Auto) Urine Creatinine Urine Total Protein Fluid Total Protein Vancomycin Trough Rheumatoid Factor Complement C4 Miscellaneous Test Crossmatch 10/27/16 10/27/16 10/27/16 13:27 18:07 23:40 WBC RBC Hgb Hct MCV MCH MCHC RDW Plt Count Lymph % (Auto) [place] % (Auto) Lymph # [place] # Baso # Seg Neutrophils % Seg Neuts % (Manual) Lymphocytes % (Manual) Monocytes % (Manual) Eosinophils % (Manual) Basophils % (Manual) Nucleated RBC % Seg Neutrophils # Seg Neutrophils # Man Lymphocytes # (Manual) Monocytes # (Manual) Eosinophils # (Manual) Basophils # (Manual) PT INR Fibrinogen dRVVT Confirm Interp Factor V Activity POC ABG pH POC ABG pCO2 POC ABG pO2 ABG pO2 ABG HCO3 ABG Base Excess ABG Hemoglobin Oxyhemoglobin Sodium Potassium Chloride Carbon Dioxide BUN Creatinine Glucose POC Glucose 117 H 121 H 118 H Lactic Acid Calcium Ionized Calcium Phosphorus Magnesium Direct Bilirubin AST ALT Alkaline Phosphatase Lactate Dehydrogenase Troponin T C-Reactive Protein Total Protein Albumin Prealbumin Triglycerides Cholesterol LDL Cholesterol Direct HDL Cholesterol 25-OH Vitamin D Total PTH Intact Urine pH Urine WBC (Auto) Urine Creatinine Urine Total Protein Fluid Total Protein Vancomycin Trough Rheumatoid Factor Complement C4 Miscellaneous Test Crossmatch 10/28/16 10/28/16 10/28/16 05:48 06:45 06:45 WBC 14.7 H RBC 3.05 L Hgb 9.0 L Hct 26.9 L MCV MCH MCHC RDW 16.8 H Plt Count Lymph % (Auto) 8.2 L [place] % (Auto) 8.4 H Lymph # [place] # 1.2 H Baso # Seg Neutrophils % 81.9 H Seg Neuts % (Manual) Lymphocytes % (Manual) Monocytes % (Manual) Eosinophils % (Manual) Basophils % (Manual) Nucleated RBC % Seg Neutrophils # 12.1 H Seg Neutrophils # Man Lymphocytes # (Manual) Monocytes # (Manual) Eosinophils # (Manual) Basophils # (Manual) PT INR Fibrinogen dRVVT Confirm Interp Factor V Activity POC ABG pH POC ABG pCO2 POC ABG pO2 ABG pO2 ABG HCO3 ABG Base Excess ABG Hemoglobin Oxyhemoglobin Sodium Potassium Chloride Carbon Dioxide BUN 60 H Creatinine 1.9 H Glucose 120 H POC Glucose 114 H Lactic Acid Calcium Ionized Calcium Phosphorus Magnesium Direct Bilirubin AST ALT Alkaline Phosphatase Lactate Dehydrogenase Troponin T C-Reactive Protein Total Protein Albumin Prealbumin Triglycerides Cholesterol LDL Cholesterol Direct HDL Cholesterol 25-OH Vitamin D Total PTH Intact Urine pH Urine WBC (Auto) Urine Creatinine Urine Total Protein Fluid Total Protein Vancomycin Trough Rheumatoid Factor Complement C4 Miscellaneous Test Crossmatch 10/28/16 10/28/16 10/29/16 17:08 23:50 05:10 WBC RBC Hgb Hct MCV MCH MCHC RDW Plt Count Lymph % (Auto) [place] % (Auto) Lymph # [place] # Baso # Seg Neutrophils % Seg Neuts % (Manual) Lymphocytes % (Manual) Monocytes % (Manual) Eosinophils % (Manual) Basophils % (Manual) Nucleated RBC % Seg Neutrophils # Seg Neutrophils # Man Lymphocytes # (Manual) Monocytes # (Manual) Eosinophils # (Manual) Basophils # (Manual) PT INR Fibrinogen dRVVT Confirm Interp Factor V Activity POC ABG pH POC ABG pCO2 POC ABG pO2 ABG pO2 ABG HCO3 ABG Base Excess ABG Hemoglobin Oxyhemoglobin Sodium Potassium Chloride Carbon Dioxide BUN Creatinine Glucose POC Glucose 109 H 110 H 124 H Lactic Acid Calcium Ionized Calcium Phosphorus Magnesium Direct Bilirubin AST ALT Alkaline Phosphatase Lactate Dehydrogenase Troponin T C-Reactive Protein Total Protein Albumin Prealbumin Triglycerides Cholesterol LDL Cholesterol Direct HDL Cholesterol 25-OH Vitamin D Total PTH Intact Urine pH Urine WBC (Auto) Urine Creatinine Urine Total Protein Fluid Total Protein Vancomycin Trough Rheumatoid Factor Complement C4 Miscellaneous Test Crossmatch 10/29/16 10/29/16 10/29/16 07:45 07:45 12:19 WBC 14.7 H RBC 3.15 L Hgb 9.3 L Hct 28.9 L MCV MCH MCHC RDW 17.0 H Plt Count Lymph % (Auto) 11.9 L [place] % (Auto) 8.6 H Lymph # [place] # 1.3 H Baso # Seg Neutrophils % 78.1 H Seg Neuts % (Manual) Lymphocytes % (Manual) Monocytes % (Manual) Eosinophils % (Manual) Basophils % (Manual) Nucleated RBC % Seg Neutrophils # 11.4 H Seg Neutrophils # Man Lymphocytes # (Manual) Monocytes # (Manual) Eosinophils # (Manual) Basophils # (Manual) PT INR Fibrinogen dRVVT Confirm Interp Factor V Activity POC ABG pH POC ABG pCO2 POC ABG pO2 ABG pO2 ABG HCO3 ABG Base Excess ABG Hemoglobin Oxyhemoglobin Sodium Potassium 5.1 H Chloride Carbon Dioxide 19 L BUN 78 H Creatinine 2.2 H Glucose 116 H POC Glucose 118 H Lactic Acid Calcium Ionized Calcium Phosphorus Magnesium Direct Bilirubin AST ALT Alkaline Phosphatase Lactate Dehydrogenase Troponin T C-Reactive Protein Total Protein Albumin Prealbumin Triglycerides Cholesterol LDL Cholesterol Direct HDL Cholesterol 25-OH Vitamin D Total PTH Intact Urine pH Urine WBC (Auto) Urine Creatinine Urine Total Protein Fluid Total Protein Vancomycin Trough Rheumatoid Factor Complement C4 Miscellaneous Test Crossmatch 10/29/16 10/30/16 10/30/16 17:49 01:52 03:28 WBC RBC Hgb Hct MCV MCH MCHC RDW Plt Count Lymph % (Auto) [place] % (Auto) Lymph # [place] # Baso # Seg Neutrophils % Seg Neuts % (Manual) Lymphocytes % (Manual) Monocytes % (Manual) Eosinophils % (Manual) Basophils % (Manual) Nucleated RBC % Seg Neutrophils # Seg Neutrophils # Man Lymphocytes # (Manual) Monocytes # (Manual) Eosinophils # (Manual) Basophils # (Manual) PT INR Fibrinogen dRVVT Confirm Interp Factor V Activity POC ABG pH POC ABG pCO2 POC ABG pO2 ABG pO2 ABG HCO3 ABG Base Excess ABG Hemoglobin Oxyhemoglobin Sodium Potassium 5.4 H Chloride 97.5 L Carbon Dioxide 19 L BUN 90 H Creatinine 2.5 H Glucose POC Glucose 120 H 129 H Lactic Acid Calcium Ionized Calcium Phosphorus 5.20 H Magnesium Direct Bilirubin AST ALT Alkaline Phosphatase Lactate Dehydrogenase Troponin T C-Reactive Protein Total Protein Albumin Prealbumin Triglycerides Cholesterol LDL Cholesterol Direct HDL Cholesterol 25-OH Vitamin D Total PTH Intact Urine pH Urine WBC (Auto) Urine Creatinine Urine Total Protein Fluid Total Protein Vancomycin Trough Rheumatoid Factor Complement C4 Miscellaneous Test Crossmatch 10/30/16 10/30/16 10/30/16 03:28 08:19 08:19 WBC 11.6 H 15.9 H RBC 2.75 L 2.82 L Hgb 7.9 L 8.3 L Hct 24.2 L 25.2 L MCV MCH MCHC RDW 16.7 H 17.2 H Plt Count Lymph % (Auto) [place] % (Auto) 9.8 H Lymph # [place] # 1.1 H Baso # Seg Neutrophils % 74.2 H Seg Neuts % (Manual) Lymphocytes % (Manual) Monocytes % (Manual) Eosinophils % (Manual) Basophils % (Manual) Nucleated RBC % Seg Neutrophils # 8.6 H Seg Neutrophils # Man Lymphocytes # (Manual) Monocytes # (Manual) Eosinophils # (Manual) Basophils # (Manual) PT INR Fibrinogen dRVVT Confirm Interp Factor V Activity POC ABG pH POC ABG pCO2 POC ABG pO2 ABG pO2 ABG HCO3 ABG Base Excess ABG Hemoglobin Oxyhemoglobin Sodium Potassium 5.3 H Chloride 97.4 L Carbon Dioxide 19 L BUN 93 H Creatinine 2.6 H Glucose POC Glucose Lactic Acid Calcium Ionized Calcium Phosphorus Magnesium Direct Bilirubin AST ALT Alkaline Phosphatase Lactate Dehydrogenase Troponin T C-Reactive Protein Total Protein Albumin Prealbumin Triglycerides Cholesterol LDL Cholesterol Direct HDL Cholesterol 25-OH Vitamin D Total PTH Intact Urine pH Urine WBC (Auto) Urine Creatinine Urine Total Protein Fluid Total Protein Vancomycin Trough Rheumatoid Factor Complement C4 Miscellaneous Test Crossmatch 10/30/16 10/30/16 10/31/16 17:11 23:56 00:40 WBC RBC Hgb Hct MCV MCH MCHC RDW Plt Count Lymph % (Auto) [place] % (Auto) Lymph # [place] # Baso # Seg Neutrophils % Seg Neuts % (Manual) Lymphocytes % (Manual) Monocytes % (Manual) Eosinophils % (Manual) Basophils % (Manual) Nucleated RBC % Seg Neutrophils # Seg Neutrophils # Man Lymphocytes # (Manual) Monocytes # (Manual) Eosinophils # (Manual) Basophils # (Manual) PT INR Fibrinogen dRVVT Confirm Interp Factor V Activity POC ABG pH POC ABG pCO2 POC ABG pO2 ABG pO2 ABG HCO3 ABG Base Excess ABG Hemoglobin Oxyhemoglobin Sodium Potassium Chloride Carbon Dioxide BUN Creatinine Glucose POC Glucose 106 H 117 H 120 H Lactic Acid Calcium Ionized Calcium Phosphorus Magnesium Direct Bilirubin AST ALT Alkaline Phosphatase Lactate Dehydrogenase Troponin T C-Reactive Protein Total Protein Albumin Prealbumin Triglycerides Cholesterol LDL Cholesterol Direct HDL Cholesterol 25-OH Vitamin D Total PTH Intact Urine pH Urine WBC (Auto) Urine Creatinine Urine Total Protein Fluid Total Protein Vancomycin Trough Rheumatoid Factor Complement C4 Miscellaneous Test Crossmatch 10/31/16 10/31/16 10/31/16 05:43 07:15 07:15 WBC 12.1 H RBC 2.63 L Hgb 7.7 L Hct 23.3 L MCV MCH MCHC RDW 16.7 H Plt Count Lymph % (Auto) 11.7 L [place] % (Auto) 7.7 H Lymph # [place] # 0.9 H Baso # Seg Neutrophils % 78.0 H Seg Neuts % (Manual) Lymphocytes % (Manual) Monocytes % (Manual) Eosinophils % (Manual) Basophils % (Manual) Nucleated RBC % Seg Neutrophils # 9.4 H Seg Neutrophils # Man Lymphocytes # (Manual) Monocytes # (Manual) Eosinophils # (Manual) Basophils # (Manual) PT INR Fibrinogen dRVVT Confirm Interp Factor V Activity POC ABG pH POC ABG pCO2 POC ABG pO2 ABG pO2 ABG HCO3 ABG Base Excess ABG Hemoglobin Oxyhemoglobin Sodium Potassium Chloride 96.4 L Carbon Dioxide 21 L BUN 99 H Creatinine 2.6 H Glucose 144 H POC Glucose 125 H Lactic Acid Calcium Ionized Calcium Phosphorus 4.80 H Magnesium Direct Bilirubin AST ALT Alkaline Phosphatase Lactate Dehydrogenase Troponin T C-Reactive Protein Total Protein Albumin Prealbumin Triglycerides Cholesterol LDL Cholesterol Direct HDL Cholesterol 25-OH Vitamin D Total PTH Intact Urine pH Urine WBC (Auto) Urine Creatinine Urine Total Protein Fluid Total Protein Vancomycin Trough Rheumatoid Factor Complement C4 Miscellaneous Test Crossmatch 10/31/16 10/31/16 11/01/16 11:46 18:34 00:20 WBC RBC Hgb Hct MCV MCH MCHC RDW Plt Count Lymph % (Auto) [place] % (Auto) Lymph # [place] # Baso # Seg Neutrophils % Seg Neuts % (Manual) Lymphocytes % (Manual) Monocytes % (Manual) Eosinophils % (Manual) Basophils % (Manual) Nucleated RBC % Seg Neutrophils # Seg Neutrophils # Man Lymphocytes # (Manual) Monocytes # (Manual) Eosinophils # (Manual) Basophils # (Manual) PT INR Fibrinogen dRVVT Confirm Interp Factor V Activity POC ABG pH POC ABG pCO2 POC ABG pO2 ABG pO2 ABG HCO3 ABG Base Excess ABG Hemoglobin Oxyhemoglobin Sodium Potassium Chloride Carbon Dioxide BUN Creatinine Glucose POC Glucose 159 H 140 H 132 H Lactic Acid Calcium Ionized Calcium Phosphorus Magnesium Direct Bilirubin AST ALT Alkaline Phosphatase Lactate Dehydrogenase Troponin T C-Reactive Protein Total Protein Albumin Prealbumin Triglycerides Cholesterol LDL Cholesterol Direct HDL Cholesterol 25-OH Vitamin D Total PTH Intact Urine pH Urine WBC (Auto) Urine Creatinine Urine Total Protein Fluid Total Protein Vancomycin Trough Rheumatoid Factor Complement C4 Miscellaneous Test Crossmatch 11/01/16 11/01/16 11/01/16 04:55 04:55 06:11 WBC 11.2 H RBC 2.68 L Hgb 7.5 L Hct 23.7 L MCV MCH MCHC RDW 16.1 H Plt Count Lymph % (Auto) [place] % (Auto) 9.8 H Lymph # [place] # 1.1 H Baso # Seg Neutrophils % 70.8 H Seg Neuts % (Manual) Lymphocytes % (Manual) Monocytes % (Manual) Eosinophils % (Manual) Basophils % (Manual) Nucleated RBC % Seg Neutrophils # 7.9 H Seg Neutrophils # Man Lymphocytes # (Manual) Monocytes # (Manual) Eosinophils # (Manual) Basophils # (Manual) PT INR Fibrinogen dRVVT Confirm Interp Factor V Activity POC ABG pH POC ABG pCO2 POC ABG pO2 ABG pO2 ABG HCO3 ABG Base Excess ABG Hemoglobin Oxyhemoglobin Sodium Potassium 3.3 L D Chloride Carbon Dioxide BUN 61 H Creatinine 1.9 H Glucose 114 H POC Glucose 115 H Lactic Acid Calcium Ionized Calcium Phosphorus 1.80 L D Magnesium Direct Bilirubin AST ALT Alkaline Phosphatase Lactate Dehydrogenase Troponin T C-Reactive Protein Total Protein Albumin Prealbumin Triglycerides Cholesterol LDL Cholesterol Direct HDL Cholesterol 25-OH Vitamin D Total PTH Intact Urine pH Urine WBC (Auto) Urine Creatinine Urine Total Protein Fluid Total Protein Vancomycin Trough Rheumatoid Factor Complement C4 Miscellaneous Test Crossmatch 11/01/16 11/01/16 11/01/16 12:29 18:23 23:58 WBC RBC Hgb Hct MCV MCH MCHC RDW Plt Count Lymph % (Auto) [place] % (Auto) Lymph # [place] # Baso # Seg Neutrophils % Seg Neuts % (Manual) Lymphocytes % (Manual) Monocytes % (Manual) Eosinophils % (Manual) Basophils % (Manual) Nucleated RBC % Seg Neutrophils # Seg Neutrophils # Man Lymphocytes # (Manual) Monocytes # (Manual) Eosinophils # (Manual) Basophils # (Manual) PT INR Fibrinogen dRVVT Confirm Interp Factor V Activity POC ABG pH POC ABG pCO2 POC ABG pO2 ABG pO2 ABG HCO3 ABG Base Excess ABG Hemoglobin Oxyhemoglobin Sodium Potassium Chloride Carbon Dioxide BUN Creatinine Glucose POC Glucose 142 H 143 H 128 H Lactic Acid Calcium Ionized Calcium Phosphorus Magnesium Direct Bilirubin AST ALT Alkaline Phosphatase Lactate Dehydrogenase Troponin T C-Reactive Protein Total Protein Albumin Prealbumin Triglycerides Cholesterol LDL Cholesterol Direct HDL Cholesterol 25-OH Vitamin D Total PTH Intact Urine pH Urine WBC (Auto) Urine Creatinine Urine Total Protein Fluid Total Protein Vancomycin Trough Rheumatoid Factor Complement C4 Miscellaneous Test Crossmatch 11/02/16 11/02/16 11/02/16 04:16 05:29 11:58 WBC RBC Hgb Hct MCV MCH MCHC RDW Plt Count Lymph % (Auto) [place] % (Auto) Lymph # [place] # Baso # Seg Neutrophils % Seg Neuts % (Manual) Lymphocytes % (Manual) Monocytes % (Manual) Eosinophils % (Manual) Basophils % (Manual) Nucleated RBC % Seg Neutrophils # Seg Neutrophils # Man Lymphocytes # (Manual) Monocytes # (Manual) Eosinophils # (Manual) Basophils # (Manual) PT INR Fibrinogen dRVVT Confirm Interp Factor V Activity POC ABG pH POC ABG pCO2 POC ABG pO2 ABG pO2 ABG HCO3 ABG Base Excess ABG Hemoglobin Oxyhemoglobin Sodium Potassium 3.1 L Chloride Carbon Dioxide BUN 73 H Creatinine 2.3 H Glucose 112 H POC Glucose 135 H 149 H Lactic Acid Calcium Ionized Calcium Phosphorus Magnesium Direct Bilirubin AST ALT Alkaline Phosphatase Lactate Dehydrogenase Troponin T C-Reactive Protein Total Protein Albumin Prealbumin Triglycerides Cholesterol LDL Cholesterol Direct HDL Cholesterol 25-OH Vitamin D Total PTH Intact Urine pH Urine WBC (Auto) Urine Creatinine Urine Total Protein Fluid Total Protein Vancomycin Trough Rheumatoid Factor Complement C4 Miscellaneous Test Crossmatch 11/02/16 11/02/16 11/03/16 17:42 22:54 06:00 WBC RBC Hgb Hct MCV MCH MCHC RDW Plt Count Lymph % (Auto) [place] % (Auto) Lymph # [place] # Baso # Seg Neutrophils % Seg Neuts % (Manual) Lymphocytes % (Manual) Monocytes % (Manual) Eosinophils % (Manual) Basophils % (Manual) Nucleated RBC % Seg Neutrophils # Seg Neutrophils # Man Lymphocytes # (Manual) Monocytes # (Manual) Eosinophils # (Manual) Basophils # (Manual) PT INR Fibrinogen dRVVT Confirm Interp Factor V Activity POC ABG pH POC ABG pCO2 POC ABG pO2 ABG pO2 ABG HCO3 ABG Base Excess ABG Hemoglobin Oxyhemoglobin Sodium Potassium Chloride 96.7 L Carbon Dioxide BUN 41 H Creatinine 1.5 H Glucose 145 H POC Glucose 182 H 115 H Lactic Acid Calcium Ionized Calcium Phosphorus 1.60 L D Magnesium 1.50 L Direct Bilirubin AST ALT Alkaline Phosphatase Lactate Dehydrogenase Troponin T C-Reactive Protein Total Protein Albumin Prealbumin Triglycerides Cholesterol LDL Cholesterol Direct HDL Cholesterol 25-OH Vitamin D Total PTH Intact Urine pH Urine WBC (Auto) Urine Creatinine Urine Total Protein Fluid Total Protein Vancomycin Trough Rheumatoid Factor Complement C4 Miscellaneous Test Crossmatch 11/03/16 11/03/16 11/03/16 11:53 17:45 23:37 WBC RBC Hgb Hct MCV MCH MCHC RDW Plt Count Lymph % (Auto) [place] % (Auto) Lymph # [place] # Baso # Seg Neutrophils % Seg Neuts % (Manual) Lymphocytes % (Manual) Monocytes % (Manual) Eosinophils % (Manual) Basophils % (Manual) Nucleated RBC % Seg Neutrophils # Seg Neutrophils # Man Lymphocytes # (Manual) Monocytes # (Manual) Eosinophils # (Manual) Basophils # (Manual) PT INR Fibrinogen dRVVT Confirm Interp Factor V Activity POC ABG pH POC ABG pCO2 POC ABG pO2 ABG pO2 ABG HCO3 ABG Base Excess ABG Hemoglobin Oxyhemoglobin Sodium Potassium Chloride Carbon Dioxide BUN Creatinine Glucose POC Glucose 131 H 134 H 113 H Lactic Acid Calcium Ionized Calcium Phosphorus Magnesium Direct Bilirubin AST ALT Alkaline Phosphatase Lactate Dehydrogenase Troponin T C-Reactive Protein Total Protein Albumin Prealbumin Triglycerides Cholesterol LDL Cholesterol Direct HDL Cholesterol 25-OH Vitamin D Total PTH Intact Urine pH Urine WBC (Auto) Urine Creatinine Urine Total Protein Fluid Total Protein Vancomycin Trough Rheumatoid Factor Complement C4 Miscellaneous Test Crossmatch 11/04/16 11/04/16 11/04/16 05:41 06:00 12:10 WBC RBC Hgb Hct MCV MCH MCHC RDW Plt Count Lymph % (Auto) [place] % (Auto) Lymph # [place] # Baso # Seg Neutrophils % Seg Neuts % (Manual) Lymphocytes % (Manual) Monocytes % (Manual) Eosinophils % (Manual) Basophils % (Manual) Nucleated RBC % Seg Neutrophils # Seg Neutrophils # Man Lymphocytes # (Manual) Monocytes # (Manual) Eosinophils # (Manual) Basophils # (Manual) PT INR Fibrinogen dRVVT Confirm Interp Factor V Activity POC ABG pH POC ABG pCO2 POC ABG pO2 ABG pO2 ABG HCO3 ABG Base Excess ABG Hemoglobin Oxyhemoglobin Sodium Potassium Chloride 96.7 L Carbon Dioxide BUN 52 H Creatinine 1.9 H Glucose 126 H POC Glucose 137 H 191 H Lactic Acid Calcium Ionized Calcium Phosphorus Magnesium Direct Bilirubin AST ALT Alkaline Phosphatase Lactate Dehydrogenase Troponin T C-Reactive Protein Total Protein Albumin Prealbumin Triglycerides Cholesterol LDL Cholesterol Direct HDL Cholesterol 25-OH Vitamin D Total PTH Intact Urine pH Urine WBC (Auto) Urine Creatinine Urine Total Protein Fluid Total Protein Vancomycin Trough Rheumatoid Factor Complement C4 Miscellaneous Test Crossmatch 11/04/16 11/05/16 11/05/16 22:57 03:10 05:10 WBC RBC Hgb Hct MCV MCH MCHC RDW Plt Count Lymph % (Auto) [place] % (Auto) Lymph # [place] # Baso # Seg Neutrophils % Seg Neuts % (Manual) Lymphocytes % (Manual) Monocytes % (Manual) Eosinophils % (Manual) Basophils % (Manual) Nucleated RBC % Seg Neutrophils # Seg Neutrophils # Man Lymphocytes # (Manual) Monocytes # (Manual) Eosinophils # (Manual) Basophils # (Manual) PT INR Fibrinogen dRVVT Confirm Interp Factor V Activity POC ABG pH POC ABG pCO2 POC ABG pO2 ABG pO2 ABG HCO3 ABG Base Excess ABG Hemoglobin Oxyhemoglobin Sodium 136 L Potassium Chloride 97.2 L Carbon Dioxide BUN 32 H Creatinine 1.3 H Glucose 123 H POC Glucose 125 H 108 H Lactic Acid Calcium 7.8 L Ionized Calcium Phosphorus Magnesium Direct Bilirubin AST ALT Alkaline Phosphatase Lactate Dehydrogenase Troponin T C-Reactive Protein Total Protein Albumin Prealbumin Triglycerides Cholesterol LDL Cholesterol Direct HDL Cholesterol 25-OH Vitamin D Total PTH Intact Urine pH Urine WBC (Auto) Urine Creatinine Urine Total Protein Fluid Total Protein Vancomycin Trough Rheumatoid Factor Complement C4 Miscellaneous Test Crossmatch 11/05/16 11/05/16 11/05/16 12:23 13:09 13:25 WBC RBC Hgb Hct MCV MCH MCHC RDW Plt Count Lymph % (Auto) [place] % (Auto) Lymph # [place] # Baso # Seg Neutrophils % Seg Neuts % (Manual) Lymphocytes % (Manual) Monocytes % (Manual) Eosinophils % (Manual) Basophils % (Manual) Nucleated RBC % Seg Neutrophils # Seg Neutrophils # Man Lymphocytes # (Manual) Monocytes # (Manual) Eosinophils # (Manual) Basophils # (Manual) PT INR Fibrinogen dRVVT Confirm Interp Factor V Activity POC ABG pH POC ABG pCO2 POC ABG pO2 ABG pO2 ABG HCO3 ABG Base Excess ABG Hemoglobin Oxyhemoglobin Sodium Potassium Chloride Carbon Dioxide BUN Creatinine Glucose POC Glucose 124 H Lactic Acid Calcium Ionized Calcium Phosphorus Magnesium Direct Bilirubin AST ALT Alkaline Phosphatase Lactate Dehydrogenase Troponin T C-Reactive Protein 11.40 H Total Protein Albumin Prealbumin Triglycerides Cholesterol LDL Cholesterol Direct HDL Cholesterol 25-OH Vitamin D Total PTH Intact Urine pH 9.0 H Urine WBC (Auto) Urine Creatinine Urine Total Protein Fluid Total Protein Vancomycin Trough Rheumatoid Factor Complement C4 Miscellaneous Test Crossmatch 11/05/16 11/05/16 11/05/16 13:25 17:54 23:42 WBC RBC Hgb Hct MCV MCH MCHC RDW Plt Count Lymph % (Auto) [place] % (Auto) Lymph # [place] # Baso # Seg Neutrophils % Seg Neuts % (Manual) Lymphocytes % (Manual) Monocytes % (Manual) Eosinophils % (Manual) Basophils % (Manual) Nucleated RBC % Seg Neutrophils # Seg Neutrophils # Man Lymphocytes # (Manual) Monocytes # (Manual) Eosinophils # (Manual) Basophils # (Manual) PT INR Fibrinogen dRVVT Confirm Interp Factor V Activity POC ABG pH POC ABG pCO2 POC ABG pO2 ABG pO2 ABG HCO3 ABG Base Excess ABG Hemoglobin Oxyhemoglobin Sodium Potassium Chloride Carbon Dioxide BUN Creatinine Glucose POC Glucose 114 H 134 H Lactic Acid Calcium Ionized Calcium Phosphorus Magnesium Direct Bilirubin AST ALT Alkaline Phosphatase Lactate Dehydrogenase Troponin T C-Reactive Protein Total Protein Albumin Prealbumin Triglycerides Cholesterol LDL Cholesterol Direct HDL Cholesterol 25-OH Vitamin D Total PTH Intact Urine pH Urine WBC (Auto) Urine Creatinine Urine Total Protein Fluid Total Protein Vancomycin Trough Rheumatoid Factor Complement C4 Miscellaneous Test Flexitest 1 H Crossmatch 11/06/16 11/06/16 11/06/16 04:56 06:25 06:25 WBC RBC 2.50 L Hgb 7.3 L Hct 22.5 L MCV MCH MCHC RDW 16.9 H Plt Count Lymph % (Auto) [place] % (Auto) 10.5 H Lymph # [place] # 1.1 H Baso # Seg Neutrophils % Seg Neuts % (Manual) Lymphocytes % (Manual) Monocytes % (Manual) Eosinophils % (Manual) Basophils % (Manual) Nucleated RBC % Seg Neutrophils # Seg Neutrophils # Man Lymphocytes # (Manual) Monocytes # (Manual) Eosinophils # (Manual) Basophils # (Manual) PT INR Fibrinogen dRVVT Confirm Interp Factor V Activity POC ABG pH POC ABG pCO2 POC ABG pO2 ABG pO2 ABG HCO3 ABG Base Excess ABG Hemoglobin Oxyhemoglobin Sodium Potassium 5.1 H Chloride 95.9 L Carbon Dioxide BUN 52 H Creatinine 1.8 H Glucose 117 H POC Glucose 120 H Lactic Acid Calcium Ionized Calcium Phosphorus Magnesium Direct Bilirubin AST 103 H ALT 77 H Alkaline Phosphatase 285 H Lactate Dehydrogenase Troponin T C-Reactive Protein Total Protein 6.2 L Albumin 1.8 L Prealbumin 0.180 L Triglycerides Cholesterol LDL Cholesterol Direct HDL Cholesterol 25-OH Vitamin D Total PTH Intact Urine pH Urine WBC (Auto) Urine Creatinine Urine Total Protein Fluid Total Protein Vancomycin Trough Rheumatoid Factor Complement C4 Miscellaneous Test Crossmatch 11/06/16 11/06/16 11/06/16 11:56 17:14 23:52 WBC RBC Hgb Hct MCV MCH MCHC RDW Plt Count Lymph % (Auto) [place] % (Auto) Lymph # [place] # Baso # Seg Neutrophils % Seg Neuts % (Manual) Lymphocytes % (Manual) Monocytes % (Manual) Eosinophils % (Manual) Basophils % (Manual) Nucleated RBC % Seg Neutrophils # Seg Neutrophils # Man Lymphocytes # (Manual) Monocytes # (Manual) Eosinophils # (Manual) Basophils # (Manual) PT INR Fibrinogen dRVVT Confirm Interp Factor V Activity POC ABG pH POC ABG pCO2 POC ABG pO2 ABG pO2 ABG HCO3 ABG Base Excess ABG Hemoglobin Oxyhemoglobin Sodium Potassium Chloride Carbon Dioxide BUN Creatinine Glucose POC Glucose 141 H 125 H 130 H Lactic Acid Calcium Ionized Calcium Phosphorus Magnesium Direct Bilirubin AST ALT Alkaline Phosphatase Lactate Dehydrogenase Troponin T C-Reactive Protein Total Protein Albumin Prealbumin Triglycerides Cholesterol LDL Cholesterol Direct HDL Cholesterol 25-OH Vitamin D Total PTH Intact Urine pH Urine WBC (Auto) Urine Creatinine Urine Total Protein Fluid Total Protein Vancomycin Trough Rheumatoid Factor Complement C4 Miscellaneous Test Crossmatch 11/07/16 11/07/16 11/07/16 06:30 06:30 09:37 WBC RBC 2.18 L Hgb 6.3 L Hct 19.7 L* MCV MCH MCHC RDW 16.8 H Plt Count Lymph % (Auto) [place] % (Auto) 10.0 H Lymph # [place] # 1.0 H Baso # Seg Neutrophils % Seg Neuts % (Manual) Lymphocytes % (Manual) Monocytes % (Manual) Eosinophils % (Manual) Basophils % (Manual) Nucleated RBC % Seg Neutrophils # Seg Neutrophils # Man Lymphocytes # (Manual) Monocytes # (Manual) Eosinophils # (Manual) Basophils # (Manual) PT INR Fibrinogen dRVVT Confirm Interp Factor V Activity POC ABG pH POC ABG pCO2 POC ABG pO2 ABG pO2 ABG HCO3 ABG Base Excess ABG Hemoglobin Oxyhemoglobin Sodium 135 L Potassium Chloride 95.6 L Carbon Dioxide BUN 70 H Creatinine 2.0 H Glucose 126 H POC Glucose Lactic Acid Calcium Ionized Calcium Phosphorus Magnesium Direct Bilirubin AST ALT Alkaline Phosphatase Lactate Dehydrogenase Troponin T C-Reactive Protein Total Protein Albumin Prealbumin Triglycerides Cholesterol LDL Cholesterol Direct HDL Cholesterol 25-OH Vitamin D Total PTH Intact Urine pH Urine WBC (Auto) Urine Creatinine Urine Total Protein Fluid Total Protein Vancomycin Trough Rheumatoid Factor Complement C4 Miscellaneous Test Crossmatch See Detail 11/07/16 11/07/16 11/07/16 12:52 18:51 21:26 WBC RBC Hgb Hct MCV MCH MCHC RDW Plt Count Lymph % (Auto) [place] % (Auto) Lymph # [place] # Baso # Seg Neutrophils % Seg Neuts % (Manual) Lymphocytes % (Manual) Monocytes % (Manual) Eosinophils % (Manual) Basophils % (Manual) Nucleated RBC % Seg Neutrophils # Seg Neutrophils # Man Lymphocytes # (Manual) Monocytes # (Manual) Eosinophils # (Manual) Basophils # (Manual) PT INR Fibrinogen dRVVT Confirm Interp Factor V Activity POC ABG pH 7.523 H POC ABG pCO2 34.6 L POC ABG pO2 53 L ABG pO2 ABG HCO3 ABG Base Excess ABG Hemoglobin Oxyhemoglobin Sodium Potassium Chloride Carbon Dioxide BUN Creatinine Glucose POC Glucose 142 H 155 H Lactic Acid Calcium Ionized Calcium Phosphorus Magnesium Direct Bilirubin AST ALT Alkaline Phosphatase Lactate Dehydrogenase Troponin T C-Reactive Protein Total Protein Albumin Prealbumin Triglycerides Cholesterol LDL Cholesterol Direct HDL Cholesterol 25-OH Vitamin D Total PTH Intact Urine pH Urine WBC (Auto) Urine Creatinine Urine Total Protein Fluid Total Protein Vancomycin Trough Rheumatoid Factor Complement C4 Miscellaneous Test Crossmatch 11/07/16 11/08/16 11/08/16 21:34 13:03 23:37 WBC RBC 2.63 L Hgb 7.7 L Hct 22.7 L MCV MCH MCHC RDW 17.0 H Plt Count Lymph % (Auto) [place] % (Auto) Lymph # [place] # Baso # Seg Neutrophils % Seg Neuts % (Manual) Lymphocytes % (Manual) Monocytes % (Manual) Eosinophils % (Manual) Basophils % (Manual) Nucleated RBC % Seg Neutrophils # Seg Neutrophils # Man Lymphocytes # (Manual) Monocytes # (Manual) Eosinophils # (Manual) Basophils # (Manual) PT INR Fibrinogen dRVVT Confirm Interp Factor V Activity POC ABG pH 7.478 H POC ABG pCO2 34.0 L POC ABG pO2 50 L ABG pO2 ABG HCO3 ABG Base Excess ABG Hemoglobin Oxyhemoglobin Sodium Potassium Chloride Carbon Dioxide BUN Creatinine Glucose POC Glucose 113 H Lactic Acid Calcium Ionized Calcium Phosphorus Magnesium Direct Bilirubin AST ALT Alkaline Phosphatase Lactate Dehydrogenase Troponin T C-Reactive Protein Total Protein Albumin Prealbumin Triglycerides Cholesterol LDL Cholesterol Direct HDL Cholesterol 25-OH Vitamin D Total PTH Intact Urine pH Urine WBC (Auto) Urine Creatinine Urine Total Protein Fluid Total Protein Vancomycin Trough Rheumatoid Factor Complement C4 Miscellaneous Test Crossmatch 11/09/16 11/09/16 11/09/16 04:35 10:15 18:21 WBC RBC 2.68 L Hgb 7.8 L Hct 23.3 L MCV MCH MCHC RDW 17.0 H Plt Count Lymph % (Auto) [place] % (Auto) 12.1 H Lymph # [place] # 1.1 H Baso # Seg Neutrophils % Seg Neuts % (Manual) Lymphocytes % (Manual) Monocytes % (Manual) Eosinophils % (Manual) Basophils % (Manual) Nucleated RBC % Seg Neutrophils # Seg Neutrophils # Man Lymphocytes # (Manual) Monocytes # (Manual) Eosinophils # (Manual) Basophils # (Manual) PT INR Fibrinogen dRVVT Confirm Interp Factor V Activity POC ABG pH POC ABG pCO2 POC ABG pO2 ABG pO2 ABG HCO3 ABG Base Excess ABG Hemoglobin Oxyhemoglobin Sodium Potassium Chloride Carbon Dioxide BUN 51 H Creatinine 1.8 H Glucose POC Glucose 60 L Lactic Acid Calcium 8.3 L Ionized Calcium Phosphorus Magnesium Direct Bilirubin AST ALT Alkaline Phosphatase Lactate Dehydrogenase Troponin T C-Reactive Protein Total Protein Albumin Prealbumin Triglycerides Cholesterol LDL Cholesterol Direct HDL Cholesterol 25-OH Vitamin D Total PTH Intact Urine pH Urine WBC (Auto) Urine Creatinine Urine Total Protein Fluid Total Protein Vancomycin Trough Rheumatoid Factor Complement C4 Miscellaneous Test Crossmatch 11/09/16 11/10/16 11/10/16 18:55 07:00 11:51 WBC RBC Hgb Hct MCV MCH MCHC RDW Plt Count Lymph % (Auto) [place] % (Auto) Lymph # [place] # Baso # Seg Neutrophils % Seg Neuts % (Manual) Lymphocytes % (Manual) Monocytes % (Manual) Eosinophils % (Manual) Basophils % (Manual) Nucleated RBC % Seg Neutrophils # Seg Neutrophils # Man Lymphocytes # (Manual) Monocytes # (Manual) Eosinophils # (Manual) Basophils # (Manual) PT INR Fibrinogen dRVVT Confirm Interp Factor V Activity POC ABG pH POC ABG pCO2 POC ABG pO2 ABG pO2 ABG HCO3 ABG Base Excess ABG Hemoglobin Oxyhemoglobin Sodium Potassium 3.0 L D Chloride 97.4 L Carbon Dioxide BUN 28 H Creatinine 1.3 H Glucose POC Glucose 68 L 120 H Lactic Acid Calcium 7.8 L Ionized Calcium Phosphorus Magnesium Direct Bilirubin AST ALT Alkaline Phosphatase Lactate Dehydrogenase Troponin T C-Reactive Protein Total Protein Albumin Prealbumin Triglycerides Cholesterol LDL Cholesterol Direct HDL Cholesterol 25-OH Vitamin D Total PTH Intact Urine pH Urine WBC (Auto) Urine Creatinine Urine Total Protein Fluid Total Protein Vancomycin Trough Rheumatoid Factor Complement C4 Miscellaneous Test Crossmatch 11/10/16 11/11/16 11/11/16 14:20 06:59 06:59 WBC RBC 2.81 L Hgb 8.1 L Hct 24.4 L MCV MCH MCHC RDW 16.4 H Plt Count Lymph % (Auto) [place] % (Auto) 10.8 H Lymph # [place] # 1.0 H Baso # Seg Neutrophils % Seg Neuts % (Manual) Lymphocytes % (Manual) Monocytes % (Manual) Eosinophils % (Manual) Basophils % (Manual) Nucleated RBC % Seg Neutrophils # Seg Neutrophils # Man Lymphocytes # (Manual) Monocytes # (Manual) Eosinophils # (Manual) Basophils # (Manual) PT INR Fibrinogen dRVVT Confirm Interp Factor V Activity POC ABG pH POC ABG pCO2 POC ABG pO2 ABG pO2 ABG HCO3 ABG Base Excess ABG Hemoglobin Oxyhemoglobin Sodium Potassium Chloride Carbon Dioxide BUN Creatinine Glucose POC Glucose Lactic Acid Calcium Ionized Calcium Phosphorus Magnesium Direct Bilirubin AST ALT Alkaline Phosphatase Lactate Dehydrogenase 196 H Troponin T C-Reactive Protein Total Protein 6.1 L Albumin Prealbumin Triglycerides Cholesterol LDL Cholesterol Direct HDL Cholesterol 25-OH Vitamin D Total PTH Intact Urine pH Urine WBC (Auto) Urine Creatinine Urine Total Protein Fluid Total Protein < 3.0 L Vancomycin Trough Rheumatoid Factor Complement C4 Miscellaneous Test Crossmatch 11/11/16 11/11/16 11/12/16 06:59 09:50 04:00 WBC RBC Hgb Hct MCV MCH MCHC RDW Plt Count Lymph % (Auto) [place] % (Auto) Lymph # [place] # Baso # Seg Neutrophils % Seg Neuts % (Manual) Lymphocytes % (Manual) Monocytes % (Manual) Eosinophils % (Manual) Basophils % (Manual) Nucleated RBC % Seg Neutrophils # Seg Neutrophils # Man Lymphocytes # (Manual) Monocytes # (Manual) Eosinophils # (Manual) Basophils # (Manual) PT INR 1.18 H Fibrinogen dRVVT Confirm Interp Factor V Activity POC ABG pH POC ABG pCO2 POC ABG pO2 ABG pO2 ABG HCO3 ABG Base Excess ABG Hemoglobin Oxyhemoglobin Sodium 136 L 133 L Potassium Chloride 96.1 L 94.8 L Carbon Dioxide 21 L BUN 37 H 42 H Creatinine 1.8 H 2.0 H Glucose POC Glucose Lactic Acid Calcium Ionized Calcium Phosphorus Magnesium Direct Bilirubin AST ALT Alkaline Phosphatase Lactate Dehydrogenase Troponin T C-Reactive Protein Total Protein Albumin Prealbumin Triglycerides Cholesterol LDL Cholesterol Direct HDL Cholesterol 25-OH Vitamin D Total PTH Intact Urine pH Urine WBC (Auto) Urine Creatinine Urine Total Protein Fluid Total Protein Vancomycin Trough Rheumatoid Factor Complement C4 Miscellaneous Test Crossmatch 11/12/16 11/12/16 11/13/16 04:00 23:55 05:53 WBC RBC Hgb 8.9 L Hct 27.2 L MCV MCH MCHC RDW Plt Count Lymph % (Auto) [place] % (Auto) Lymph # [place] # Baso # Seg Neutrophils % Seg Neuts % (Manual) Lymphocytes % (Manual) Monocytes % (Manual) Eosinophils % (Manual) Basophils % (Manual) Nucleated RBC % Seg Neutrophils # Seg Neutrophils # Man Lymphocytes # (Manual) Monocytes # (Manual) Eosinophils # (Manual) Basophils # (Manual) PT INR Fibrinogen dRVVT Confirm Interp Factor V Activity POC ABG pH POC ABG pCO2 POC ABG pO2 ABG pO2 ABG HCO3 ABG Base Excess ABG Hemoglobin Oxyhemoglobin Sodium Potassium Chloride Carbon Dioxide BUN Creatinine Glucose POC Glucose 132 H 120 H Lactic Acid Calcium Ionized Calcium Phosphorus Magnesium Direct Bilirubin AST ALT Alkaline Phosphatase Lactate Dehydrogenase Troponin T C-Reactive Protein Total Protein Albumin Prealbumin Triglycerides Cholesterol LDL Cholesterol Direct HDL Cholesterol 25-OH Vitamin D Total PTH Intact Urine pH Urine WBC (Auto) Urine Creatinine Urine Total Protein Fluid Total Protein Vancomycin Trough Rheumatoid Factor Complement C4 Miscellaneous Test Crossmatch 11/13/16 11/13/16 11/13/16 11:43 17:09 23:41 WBC RBC Hgb Hct MCV MCH MCHC RDW Plt Count Lymph % (Auto) [place] % (Auto) Lymph # [place] # Baso # Seg Neutrophils % Seg Neuts % (Manual) Lymphocytes % (Manual) Monocytes % (Manual) Eosinophils % (Manual) Basophils % (Manual) Nucleated RBC % Seg Neutrophils # Seg Neutrophils # Man Lymphocytes # (Manual) Monocytes # (Manual) Eosinophils # (Manual) Basophils # (Manual) PT INR Fibrinogen dRVVT Confirm Interp Factor V Activity POC ABG pH POC ABG pCO2 POC ABG pO2 ABG pO2 ABG HCO3 ABG Base Excess ABG Hemoglobin Oxyhemoglobin Sodium Potassium Chloride Carbon Dioxide BUN Creatinine Glucose POC Glucose 114 H 113 H 108 H Lactic Acid Calcium Ionized Calcium Phosphorus Magnesium Direct Bilirubin AST ALT Alkaline Phosphatase Lactate Dehydrogenase Troponin T C-Reactive Protein Total Protein Albumin Prealbumin Triglycerides Cholesterol LDL Cholesterol Direct HDL Cholesterol 25-OH Vitamin D Total PTH Intact Urine pH Urine WBC (Auto) Urine Creatinine Urine Total Protein Fluid Total Protein Vancomycin Trough Rheumatoid Factor Complement C4 Miscellaneous Test Crossmatch 11/13/16 11/15/16 11/15/16 Unknown 00:37 03:30 WBC 11.2 H RBC 2.72 L Hgb 7.6 L Hct 23.4 L MCV MCH MCHC RDW 16.5 H Plt Count Lymph % (Auto) [place] % (Auto) Lymph # [place] # Baso # Seg Neutrophils % Seg Neuts % (Manual) Lymphocytes % (Manual) Monocytes % (Manual) Eosinophils % (Manual) Basophils % (Manual) Nucleated RBC % Seg Neutrophils # Seg Neutrophils # Man Lymphocytes # (Manual) Monocytes # (Manual) Eosinophils # (Manual) Basophils # (Manual) PT INR Fibrinogen dRVVT Confirm Interp Factor V Activity POC ABG pH POC ABG pCO2 POC ABG pO2 ABG pO2 ABG HCO3 ABG Base Excess ABG Hemoglobin Oxyhemoglobin Sodium 135 L Potassium Chloride 95.2 L Carbon Dioxide BUN 52 H Creatinine 2.2 H Glucose POC Glucose 108 H Lactic Acid Calcium Ionized Calcium Phosphorus Magnesium Direct Bilirubin AST ALT Alkaline Phosphatase Lactate Dehydrogenase Troponin T C-Reactive Protein Total Protein Albumin Prealbumin Triglycerides Cholesterol LDL Cholesterol Direct HDL Cholesterol 25-OH Vitamin D Total PTH Intact Urine pH Urine WBC (Auto) Urine Creatinine Urine Total Protein Fluid Total Protein Vancomycin Trough Rheumatoid Factor Complement C4 Miscellaneous Test Crossmatch 11/15/16 11/15/16 11/15/16 03:30 05:04 11:50 WBC RBC Hgb Hct MCV MCH MCHC RDW Plt Count Lymph % (Auto) [place] % (Auto) Lymph # [place] # Baso # Seg Neutrophils % Seg Neuts % (Manual) Lymphocytes % (Manual) Monocytes % (Manual) Eosinophils % (Manual) Basophils % (Manual) Nucleated RBC % Seg Neutrophils # Seg Neutrophils # Man Lymphocytes # (Manual) Monocytes # (Manual) Eosinophils # (Manual) Basophils # (Manual) PT INR Fibrinogen dRVVT Confirm Interp Factor V Activity POC ABG pH POC ABG pCO2 POC ABG pO2 ABG pO2 ABG HCO3 ABG Base Excess ABG Hemoglobin Oxyhemoglobin Sodium Potassium 3.4 L Chloride Carbon Dioxide BUN 25 H Creatinine 1.5 H Glucose 103 H POC Glucose 121 H 144 H Lactic Acid Calcium Ionized Calcium Phosphorus Magnesium Direct Bilirubin AST ALT Alkaline Phosphatase Lactate Dehydrogenase Troponin T C-Reactive Protein Total Protein Albumin Prealbumin Triglycerides Cholesterol LDL Cholesterol Direct HDL Cholesterol 25-OH Vitamin D Total PTH Intact Urine pH Urine WBC (Auto) Urine Creatinine Urine Total Protein Fluid Total Protein Vancomycin Trough Rheumatoid Factor Complement C4 Miscellaneous Test Crossmatch 11/15/16 11/15/16 11/16/16 21:28 23:20 11:44 WBC RBC Hgb Hct MCV MCH MCHC RDW Plt Count Lymph % (Auto) [place] % (Auto) Lymph # [place] # Baso # Seg Neutrophils % Seg Neuts % (Manual) Lymphocytes % (Manual) Monocytes % (Manual) Eosinophils % (Manual) Basophils % (Manual) Nucleated RBC % Seg Neutrophils # Seg Neutrophils # Man Lymphocytes # (Manual) Monocytes # (Manual) Eosinophils # (Manual) Basophils # (Manual) PT INR Fibrinogen dRVVT Confirm Interp Factor V Activity POC ABG pH 7.462 H POC ABG pCO2 POC ABG pO2 71 L ABG pO2 ABG HCO3 ABG Base Excess ABG Hemoglobin Oxyhemoglobin Sodium Potassium Chloride Carbon Dioxide BUN Creatinine Glucose POC Glucose 116 H 133 H Lactic Acid Calcium Ionized Calcium Phosphorus Magnesium Direct Bilirubin AST ALT Alkaline Phosphatase Lactate Dehydrogenase Troponin T C-Reactive Protein Total Protein Albumin Prealbumin Triglycerides Cholesterol LDL Cholesterol Direct HDL Cholesterol 25-OH Vitamin D Total PTH Intact Urine pH Urine WBC (Auto) Urine Creatinine Urine Total Protein Fluid Total Protein Vancomycin Trough Rheumatoid Factor Complement C4 Miscellaneous Test Crossmatch 11/16/16 11/16/16 11/16/16 12:20 17:05 23:35 WBC 11.7 H RBC 2.73 L Hgb 7.6 L Hct 23.7 L MCV MCH MCHC RDW 16.6 H Plt Count Lymph % (Auto) [place] % (Auto) Lymph # [place] # Baso # Seg Neutrophils % Seg Neuts % (Manual) Lymphocytes % (Manual) Monocytes % (Manual) Eosinophils % (Manual) Basophils % (Manual) Nucleated RBC % Seg Neutrophils # Seg Neutrophils # Man Lymphocytes # (Manual) Monocytes # (Manual) Eosinophils # (Manual) Basophils # (Manual) PT INR Fibrinogen dRVVT Confirm Interp Factor V Activity POC ABG pH POC ABG pCO2 POC ABG pO2 ABG pO2 ABG HCO3 ABG Base Excess ABG Hemoglobin Oxyhemoglobin Sodium Potassium Chloride Carbon Dioxide BUN Creatinine Glucose POC Glucose 154 H 125 H Lactic Acid Calcium Ionized Calcium Phosphorus Magnesium Direct Bilirubin AST ALT Alkaline Phosphatase Lactate Dehydrogenase Troponin T C-Reactive Protein Total Protein Albumin Prealbumin Triglycerides Cholesterol LDL Cholesterol Direct HDL Cholesterol 25-OH Vitamin D Total PTH Intact Urine pH Urine WBC (Auto) Urine Creatinine Urine Total Protein Fluid Total Protein Vancomycin Trough Rheumatoid Factor Complement C4 Miscellaneous Test Crossmatch 11/17/16 11/17/16 11/17/16 03:20 03:20 03:20 WBC RBC 2.55 L Hgb 7.3 L Hct 21.9 L MCV MCH MCHC RDW 16.6 H Plt Count Lymph % (Auto) [place] % (Auto) 11.5 H Lymph # [place] # 1.1 H Baso # Seg Neutrophils % Seg Neuts % (Manual) Lymphocytes % (Manual) Monocytes % (Manual) Eosinophils % (Manual) Basophils % (Manual) Nucleated RBC % Seg Neutrophils # Seg Neutrophils # Man Lymphocytes # (Manual) Monocytes # (Manual) Eosinophils # (Manual) Basophils # (Manual) PT 16.8 H INR 1.37 H Fibrinogen dRVVT Confirm Interp Factor V Activity POC ABG pH POC ABG pCO2 POC ABG pO2 ABG pO2 ABG HCO3 ABG Base Excess ABG Hemoglobin Oxyhemoglobin Sodium Potassium 3.5 L Chloride Carbon Dioxide BUN 21 H Creatinine Glucose POC Glucose Lactic Acid Calcium 7.9 L Ionized Calcium Phosphorus Magnesium Direct Bilirubin AST ALT Alkaline Phosphatase Lactate Dehydrogenase Troponin T C-Reactive Protein Total Protein Albumin Prealbumin Triglycerides Cholesterol LDL Cholesterol Direct HDL Cholesterol 25-OH Vitamin D Total PTH Intact Urine pH Urine WBC (Auto) Urine Creatinine Urine Total Protein Fluid Total Protein Vancomycin Trough Rheumatoid Factor Complement C4 Miscellaneous Test Crossmatch 11/17/16 11/17/16 11/17/16 06:34 11:21 21:22 WBC RBC Hgb Hct MCV MCH MCHC RDW Plt Count Lymph % (Auto) [place] % (Auto) Lymph # [place] # Baso # Seg Neutrophils % Seg Neuts % (Manual) Lymphocytes % (Manual) Monocytes % (Manual) Eosinophils % (Manual) Basophils % (Manual) Nucleated RBC % Seg Neutrophils # Seg Neutrophils # Man Lymphocytes # (Manual) Monocytes # (Manual) Eosinophils # (Manual) Basophils # (Manual) PT INR Fibrinogen dRVVT Confirm Interp Factor V Activity POC ABG pH 7.467 H POC ABG pCO2 POC ABG pO2 73 L ABG pO2 ABG HCO3 ABG Base Excess ABG Hemoglobin Oxyhemoglobin Sodium Potassium Chloride Carbon Dioxide BUN Creatinine Glucose POC Glucose 121 H 119 H Lactic Acid Calcium Ionized Calcium Phosphorus Magnesium Direct Bilirubin AST ALT Alkaline Phosphatase Lactate Dehydrogenase Troponin T C-Reactive Protein Total Protein Albumin Prealbumin Triglycerides Cholesterol LDL Cholesterol Direct HDL Cholesterol 25-OH Vitamin D Total PTH Intact Urine pH Urine WBC (Auto) Urine Creatinine Urine Total Protein Fluid Total Protein Vancomycin Trough Rheumatoid Factor Complement C4 Miscellaneous Test Crossmatch 11/18/16 11/18/16 11/19/16 12:16 17:19 00:00 WBC RBC Hgb Hct MCV MCH MCHC RDW Plt Count Lymph % (Auto) [place] % (Auto) Lymph # [place] # Baso # Seg Neutrophils % Seg Neuts % (Manual) Lymphocytes % (Manual) Monocytes % (Manual) Eosinophils % (Manual) Basophils % (Manual) Nucleated RBC % Seg Neutrophils # Seg Neutrophils # Man Lymphocytes # (Manual) Monocytes # (Manual) Eosinophils # (Manual) Basophils # (Manual) PT INR Fibrinogen dRVVT Confirm Interp Factor V Activity POC ABG pH POC ABG pCO2 POC ABG pO2 ABG pO2 ABG HCO3 ABG Base Excess ABG Hemoglobin Oxyhemoglobin Sodium Potassium Chloride Carbon Dioxide BUN Creatinine Glucose POC Glucose 124 H 162 H 139 H Lactic Acid Calcium Ionized Calcium Phosphorus Magnesium Direct Bilirubin AST ALT Alkaline Phosphatase Lactate Dehydrogenase Troponin T C-Reactive Protein Total Protein Albumin Prealbumin Triglycerides Cholesterol LDL Cholesterol Direct HDL Cholesterol 25-OH Vitamin D Total PTH Intact Urine pH Urine WBC (Auto) Urine Creatinine Urine Total Protein Fluid Total Protein Vancomycin Trough Rheumatoid Factor Complement C4 Miscellaneous Test Crossmatch 11/19/16 11/19/16 11/20/16 05:00 12:43 00:40 WBC RBC Hgb Hct MCV MCH MCHC RDW Plt Count Lymph % (Auto) [place] % (Auto) Lymph # [place] # Baso # Seg Neutrophils % Seg Neuts % (Manual) Lymphocytes % (Manual) Monocytes % (Manual) Eosinophils % (Manual) Basophils % (Manual) Nucleated RBC % Seg Neutrophils # Seg Neutrophils # Man Lymphocytes # (Manual) Monocytes # (Manual) Eosinophils # (Manual) Basophils # (Manual) PT INR Fibrinogen dRVVT Confirm Interp Factor V Activity POC ABG pH POC ABG pCO2 POC ABG pO2 ABG pO2 ABG HCO3 ABG Base Excess ABG Hemoglobin Oxyhemoglobin Sodium Potassium Chloride Carbon Dioxide BUN Creatinine Glucose POC Glucose 110 H 125 H 136 H Lactic Acid Calcium Ionized Calcium Phosphorus Magnesium Direct Bilirubin AST ALT Alkaline Phosphatase Lactate Dehydrogenase Troponin T C-Reactive Protein Total Protein Albumin Prealbumin Triglycerides Cholesterol LDL Cholesterol Direct HDL Cholesterol 25-OH Vitamin D Total PTH Intact Urine pH Urine WBC (Auto) Urine Creatinine Urine Total Protein Fluid Total Protein Vancomycin Trough Rheumatoid Factor Complement C4 Miscellaneous Test Crossmatch 11/20/16 11/20/16 11/20/16 05:00 05:00 05:51 WBC 13.1 H RBC 2.74 L Hgb 7.7 L Hct 23.6 L MCV MCH MCHC RDW 16.9 H Plt Count Lymph % (Auto) [place] % (Auto) 10.8 H Lymph # [place] # 1.4 H Baso # Seg Neutrophils % Seg Neuts % (Manual) Lymphocytes % (Manual) Monocytes % (Manual) Eosinophils % (Manual) Basophils % (Manual) Nucleated RBC % Seg Neutrophils # 7.9 H Seg Neutrophils # Man Lymphocytes # (Manual) Monocytes # (Manual) Eosinophils # (Manual) Basophils # (Manual) PT INR Fibrinogen dRVVT Confirm Interp Factor V Activity POC ABG pH POC ABG pCO2 POC ABG pO2 ABG pO2 ABG HCO3 ABG Base Excess ABG Hemoglobin Oxyhemoglobin Sodium Potassium Chloride Carbon Dioxide BUN 31 H Creatinine 1.8 H Glucose 129 H POC Glucose 133 H Lactic Acid Calcium Ionized Calcium Phosphorus Magnesium Direct Bilirubin AST ALT Alkaline Phosphatase Lactate Dehydrogenase Troponin T C-Reactive Protein Total Protein Albumin Prealbumin Triglycerides Cholesterol LDL Cholesterol Direct HDL Cholesterol 25-OH Vitamin D Total PTH Intact Urine pH Urine WBC (Auto) Urine Creatinine Urine Total Protein Fluid Total Protein Vancomycin Trough Rheumatoid Factor Complement C4 Miscellaneous Test Crossmatch 11/20/16 11/20/16 11/21/16 12:40 18:10 01:20 WBC RBC Hgb Hct MCV MCH MCHC RDW Plt Count Lymph % (Auto) [place] % (Auto) Lymph # [place] # Baso # Seg Neutrophils % Seg Neuts % (Manual) Lymphocytes % (Manual) Monocytes % (Manual) Eosinophils % (Manual) Basophils % (Manual) Nucleated RBC % Seg Neutrophils # Seg Neutrophils # Man Lymphocytes # (Manual) Monocytes # (Manual) Eosinophils # (Manual) Basophils # (Manual) PT INR Fibrinogen dRVVT Confirm Interp Factor V Activity POC ABG pH POC ABG pCO2 POC ABG pO2 ABG pO2 ABG HCO3 ABG Base Excess ABG Hemoglobin Oxyhemoglobin Sodium Potassium Chloride Carbon Dioxide BUN Creatinine Glucose POC Glucose 134 H 138 H 136 H Lactic Acid Calcium Ionized Calcium Phosphorus Magnesium Direct Bilirubin AST ALT Alkaline Phosphatase Lactate Dehydrogenase Troponin T C-Reactive Protein Total Protein Albumin Prealbumin Triglycerides Cholesterol LDL Cholesterol Direct HDL Cholesterol 25-OH Vitamin D Total PTH Intact Urine pH Urine WBC (Auto) Urine Creatinine Urine Total Protein Fluid Total Protein Vancomycin Trough Rheumatoid Factor Complement C4 Miscellaneous Test Crossmatch 11/21/16 11/21/16 11/21/16 07:04 07:45 07:45 WBC 22.0 H RBC 2.91 L Hgb 8.2 L Hct 25.4 L MCV MCH MCHC RDW 17.1 H Plt Count Lymph % (Auto) [place] % (Auto) Lymph # [place] # Baso # Seg Neutrophils % Seg Neuts % (Manual) Lymphocytes % (Manual) 8.0 L Monocytes % (Manual) Eosinophils % (Manual) Basophils % (Manual) Nucleated RBC % Seg Neutrophils # Seg Neutrophils # Man 14.7 H Lymphocytes # (Manual) Monocytes # (Manual) 1.1 H Eosinophils # (Manual) Basophils # (Manual) PT INR Fibrinogen dRVVT Confirm Interp Factor V Activity POC ABG pH POC ABG pCO2 POC ABG pO2 ABG pO2 ABG HCO3 ABG Base Excess ABG Hemoglobin Oxyhemoglobin Sodium Potassium Chloride Carbon Dioxide BUN 42 H Creatinine 2.0 H Glucose POC Glucose 108 H Lactic Acid Calcium Ionized Calcium Phosphorus Magnesium Direct Bilirubin AST ALT Alkaline Phosphatase Lactate Dehydrogenase Troponin T C-Reactive Protein Total Protein Albumin Prealbumin Triglycerides Cholesterol LDL Cholesterol Direct HDL Cholesterol 25-OH Vitamin D Total PTH Intact Urine pH Urine WBC (Auto) Urine Creatinine Urine Total Protein Fluid Total Protein Vancomycin Trough Rheumatoid Factor Complement C4 Miscellaneous Test Crossmatch 11/21/16 11/21/16 11/21/16 08:38 10:09 11:20 WBC RBC Hgb Hct MCV MCH MCHC RDW Plt Count Lymph % (Auto) [place] % (Auto) Lymph # [place] # Baso # Seg Neutrophils % Seg Neuts % (Manual) Lymphocytes % (Manual) Monocytes % (Manual) Eosinophils % (Manual) Basophils % (Manual) Nucleated RBC % Seg Neutrophils # Seg Neutrophils # Man Lymphocytes # (Manual) Monocytes # (Manual) Eosinophils # (Manual) Basophils # (Manual) PT INR Fibrinogen dRVVT Confirm Interp Factor V Activity POC ABG pH 7.346 L POC ABG pCO2 34.4 L POC ABG pO2 314 H ABG pO2 ABG HCO3 ABG Base Excess ABG Hemoglobin Oxyhemoglobin Sodium Potassium Chloride Carbon Dioxide BUN Creatinine Glucose POC Glucose 195 H 153 H Lactic Acid Calcium Ionized Calcium Phosphorus Magnesium Direct Bilirubin AST ALT Alkaline Phosphatase Lactate Dehydrogenase Troponin T C-Reactive Protein Total Protein Albumin Prealbumin Triglycerides Cholesterol LDL Cholesterol Direct HDL Cholesterol 25-OH Vitamin D Total PTH Intact Urine pH Urine WBC (Auto) Urine Creatinine Urine Total Protein Fluid Total Protein Vancomycin Trough Rheumatoid Factor Complement C4 Miscellaneous Test Crossmatch 11/21/16 11/22/16 11/22/16 23:37 04:48 05:00 WBC 29.7 H RBC 2.73 L Hgb 7.5 L Hct 24.2 L MCV MCH 27 L MCHC RDW 17.4 H Plt Count Lymph % (Auto) [place] % (Auto) Lymph # [place] # Baso # Seg Neutrophils % Seg Neuts % (Manual) Lymphocytes % (Manual) 7.0 L Monocytes % (Manual) Eosinophils % (Manual) Basophils % (Manual) Nucleated RBC % Seg Neutrophils # Seg Neutrophils # Man 15.4 H Lymphocytes # (Manual) Monocytes # (Manual) Eosinophils # (Manual) Basophils # (Manual) PT INR Fibrinogen dRVVT Confirm Interp Factor V Activity POC ABG pH POC ABG pCO2 24.6 L POC ABG pO2 189 H ABG pO2 ABG HCO3 ABG Base Excess ABG Hemoglobin Oxyhemoglobin Sodium Potassium Chloride Carbon Dioxide BUN Creatinine Glucose POC Glucose 65 L Lactic Acid Calcium Ionized Calcium Phosphorus Magnesium Direct Bilirubin AST ALT Alkaline Phosphatase Lactate Dehydrogenase Troponin T C-Reactive Protein Total Protein Albumin Prealbumin Triglycerides Cholesterol LDL Cholesterol Direct HDL Cholesterol 25-OH Vitamin D Total PTH Intact Urine pH Urine WBC (Auto) Urine Creatinine Urine Total Protein Fluid Total Protein Vancomycin Trough Rheumatoid Factor Complement C4 Miscellaneous Test Crossmatch 11/22/16 11/23/16 11/23/16 05:00 03:44 04:06 WBC RBC 2.52 L Hgb 7.2 L Hct 21.5 L MCV MCH MCHC RDW 17.1 H Plt Count Lymph % (Auto) [place] % (Auto) 12.4 H Lymph # [place] # 1.4 H Baso # Seg Neutrophils % Seg Neuts % (Manual) Lymphocytes % (Manual) Monocytes % (Manual) Eosinophils % (Manual) Basophils % (Manual) Nucleated RBC % Seg Neutrophils # Seg Neutrophils # Man Lymphocytes # (Manual) Monocytes # (Manual) Eosinophils # (Manual) Basophils # (Manual) PT INR Fibrinogen dRVVT Confirm Interp Factor V Activity POC ABG pH 7.493 H POC ABG pCO2 29.5 L POC ABG pO2 49 L ABG pO2 ABG HCO3 ABG Base Excess ABG Hemoglobin Oxyhemoglobin Sodium 134 L Potassium Chloride 95.9 L Carbon Dioxide 14 L D BUN 51 H Creatinine 2.6 H Glucose POC Glucose Lactic Acid Calcium Ionized Calcium Phosphorus Magnesium Direct Bilirubin AST ALT Alkaline Phosphatase Lactate Dehydrogenase Troponin T C-Reactive Protein Total Protein Albumin Prealbumin Triglycerides Cholesterol LDL Cholesterol Direct HDL Cholesterol 25-OH Vitamin D Total PTH Intact Urine pH Urine WBC (Auto) Urine Creatinine Urine Total Protein Fluid Total Protein Vancomycin Trough Rheumatoid Factor Complement C4 Miscellaneous Test Crossmatch 11/23/16 11/23/16 11/24/16 04:06 11:29 06:39 WBC RBC Hgb Hct MCV MCH MCHC RDW Plt Count Lymph % (Auto) [place] % (Auto) Lymph # [place] # Baso # Seg Neutrophils % Seg Neuts % (Manual) Lymphocytes % (Manual) Monocytes % (Manual) Eosinophils % (Manual) Basophils % (Manual) Nucleated RBC % Seg Neutrophils # Seg Neutrophils # Man Lymphocytes # (Manual) Monocytes # (Manual) Eosinophils # (Manual) Basophils # (Manual) PT INR Fibrinogen dRVVT Confirm Interp Factor V Activity POC ABG pH POC ABG pCO2 POC ABG pO2 ABG pO2 ABG HCO3 ABG Base Excess ABG Hemoglobin Oxyhemoglobin Sodium 136 L Potassium Chloride 95.2 L Carbon Dioxide BUN 60 H Creatinine 2.9 H Glucose POC Glucose 69 L 305 H Lactic Acid Calcium Ionized Calcium Phosphorus Magnesium 1.60 L Direct Bilirubin AST ALT Alkaline Phosphatase Lactate Dehydrogenase Troponin T C-Reactive Protein Total Protein Albumin Prealbumin Triglycerides Cholesterol LDL Cholesterol Direct HDL Cholesterol 25-OH Vitamin D Total PTH Intact Urine pH Urine WBC (Auto) Urine Creatinine Urine Total Protein Fluid Total Protein Vancomycin Trough Rheumatoid Factor Complement C4 Miscellaneous Test Crossmatch 11/24/16 11/24/16 11/24/16 06:43 08:08 08:08 WBC 11.2 H RBC 2.47 L Hgb 6.8 L Hct 20.6 L MCV MCH MCHC RDW 17.0 H Plt Count Lymph % (Auto) [place] % (Auto) 10.3 H Lymph # [place] # 1.2 H Baso # Seg Neutrophils % Seg Neuts % (Manual) Lymphocytes % (Manual) Monocytes % (Manual) Eosinophils % (Manual) Basophils % (Manual) Nucleated RBC % Seg Neutrophils # Seg Neutrophils # Man Lymphocytes # (Manual) Monocytes # (Manual) Eosinophils # (Manual) Basophils # (Manual) PT INR Fibrinogen dRVVT Confirm Interp Factor V Activity POC ABG pH POC ABG pCO2 POC ABG pO2 ABG pO2 ABG HCO3 ABG Base Excess ABG Hemoglobin Oxyhemoglobin Sodium 135 L Potassium Chloride 96.3 L Carbon Dioxide BUN 61 H Creatinine 3.1 H Glucose POC Glucose 62 L Lactic Acid Calcium 8.2 L Ionized Calcium Phosphorus Magnesium Direct Bilirubin AST ALT Alkaline Phosphatase Lactate Dehydrogenase Troponin T C-Reactive Protein Total Protein Albumin Prealbumin Triglycerides Cholesterol LDL Cholesterol Direct HDL Cholesterol 25-OH Vitamin D Total PTH Intact Urine pH Urine WBC (Auto) Urine Creatinine Urine Total Protein Fluid Total Protein Vancomycin Trough Rheumatoid Factor Complement C4 Miscellaneous Test Crossmatch 11/24/16 11/24/16 11/24/16 08:34 11:20 12:41 WBC RBC Hgb Hct MCV MCH MCHC RDW Plt Count Lymph % (Auto) [place] % (Auto) Lymph # [place] # Baso # Seg Neutrophils % Seg Neuts % (Manual) Lymphocytes % (Manual) Monocytes % (Manual) Eosinophils % (Manual) Basophils % (Manual) Nucleated RBC % Seg Neutrophils # Seg Neutrophils # Man Lymphocytes # (Manual) Monocytes # (Manual) Eosinophils # (Manual) Basophils # (Manual) PT INR Fibrinogen dRVVT Confirm Interp Factor V Activity POC ABG pH POC ABG pCO2 POC ABG pO2 ABG pO2 ABG HCO3 ABG Base Excess ABG Hemoglobin Oxyhemoglobin Sodium Potassium Chloride Carbon Dioxide BUN Creatinine Glucose POC Glucose 108 H Lactic Acid Calcium Ionized Calcium Phosphorus Magnesium 1.60 L Direct Bilirubin AST ALT Alkaline Phosphatase Lactate Dehydrogenase Troponin T C-Reactive Protein Total Protein Albumin Prealbumin Triglycerides Cholesterol LDL Cholesterol Direct HDL Cholesterol 25-OH Vitamin D Total PTH Intact Urine pH Urine WBC (Auto) Urine Creatinine Urine Total Protein Fluid Total Protein Vancomycin Trough Rheumatoid Factor Complement C4 Miscellaneous Test Crossmatch See Detail 11/25/16 11/25/16 11/25/16 00:03 04:42 04:42 WBC RBC 3.03 L Hgb 8.6 L Hct 25.3 L MCV MCH MCHC RDW 16.2 H Plt Count Lymph % (Auto) [place] % (Auto) 8.1 H Lymph # [place] # Baso # Seg Neutrophils % 71.3 H Seg Neuts % (Manual) Lymphocytes % (Manual) Monocytes % (Manual) Eosinophils % (Manual) Basophils % (Manual) Nucleated RBC % Seg Neutrophils # Seg Neutrophils # Man Lymphocytes # (Manual) Monocytes # (Manual) Eosinophils # (Manual) Basophils # (Manual) PT INR Fibrinogen dRVVT Confirm Interp Factor V Activity POC ABG pH POC ABG pCO2 POC ABG pO2 ABG pO2 ABG HCO3 ABG Base Excess ABG Hemoglobin Oxyhemoglobin Sodium Potassium Chloride Carbon Dioxide BUN 61 H Creatinine 3.0 H Glucose 102 H POC Glucose 113 H Lactic Acid Calcium 8.2 L Ionized Calcium Phosphorus Magnesium Direct Bilirubin AST ALT Alkaline Phosphatase 142 H Lactate Dehydrogenase Troponin T C-Reactive Protein Total Protein 5.7 L Albumin 1.5 L Prealbumin Triglycerides Cholesterol LDL Cholesterol Direct HDL Cholesterol 25-OH Vitamin D Total PTH Intact Urine pH Urine WBC (Auto) Urine Creatinine Urine Total Protein Fluid Total Protein Vancomycin Trough Rheumatoid Factor Complement C4 Miscellaneous Test Crossmatch 11/25/16 11/25/16 11/25/16 05:12 11:31 14:12 WBC RBC Hgb Hct MCV MCH MCHC RDW Plt Count Lymph % (Auto) [place] % (Auto) Lymph # [place] # Baso # Seg Neutrophils % Seg Neuts % (Manual) Lymphocytes % (Manual) Monocytes % (Manual) Eosinophils % (Manual) Basophils % (Manual) Nucleated RBC % Seg Neutrophils # Seg Neutrophils # Man Lymphocytes # (Manual) Monocytes # (Manual) Eosinophils # (Manual) Basophils # (Manual) PT INR Fibrinogen dRVVT Confirm Interp Factor V Activity POC ABG pH 7.487 H POC ABG pCO2 POC ABG pO2 153 H ABG pO2 ABG HCO3 ABG Base Excess ABG Hemoglobin Oxyhemoglobin Sodium Potassium Chloride Carbon Dioxide BUN Creatinine Glucose POC Glucose 131 H 140 H Lactic Acid Calcium Ionized Calcium Phosphorus Magnesium Direct Bilirubin AST ALT Alkaline Phosphatase Lactate Dehydrogenase Troponin T C-Reactive Protein Total Protein Albumin Prealbumin Triglycerides Cholesterol LDL Cholesterol Direct HDL Cholesterol 25-OH Vitamin D Total PTH Intact Urine pH Urine WBC (Auto) Urine Creatinine Urine Total Protein Fluid Total Protein Vancomycin Trough Rheumatoid Factor Complement C4 Miscellaneous Test Crossmatch 11/25/16 11/26/16 11/26/16 17:23 00:09 05:13 WBC RBC 2.94 L Hgb 8.4 L Hct 24.6 L MCV MCH MCHC RDW 16.4 H Plt Count Lymph % (Auto) [place] % (Auto) 12.3 H Lymph # [place] # 1.1 H Baso # Seg Neutrophils % Seg Neuts % (Manual) Lymphocytes % (Manual) Monocytes % (Manual) Eosinophils % (Manual) Basophils % (Manual) Nucleated RBC % Seg Neutrophils # Seg Neutrophils # Man Lymphocytes # (Manual) Monocytes # (Manual) Eosinophils # (Manual) Basophils # (Manual) PT INR Fibrinogen dRVVT Confirm Interp Factor V Activity POC ABG pH POC ABG pCO2 POC ABG pO2 ABG pO2 ABG HCO3 ABG Base Excess ABG Hemoglobin Oxyhemoglobin Sodium Potassium Chloride Carbon Dioxide BUN Creatinine Glucose POC Glucose 146 H 112 H Lactic Acid Calcium Ionized Calcium Phosphorus Magnesium Direct Bilirubin AST ALT Alkaline Phosphatase Lactate Dehydrogenase Troponin T C-Reactive Protein Total Protein Albumin Prealbumin Triglycerides Cholesterol LDL Cholesterol Direct HDL Cholesterol 25-OH Vitamin D Total PTH Intact Urine pH Urine WBC (Auto) Urine Creatinine Urine Total Protein Fluid Total Protein Vancomycin Trough Rheumatoid Factor Complement C4 Miscellaneous Test Crossmatch 11/26/16 11/26/16 11/26/16 05:13 05:28 11:53 WBC RBC Hgb Hct MCV MCH MCHC RDW Plt Count Lymph % (Auto) [place] % (Auto) Lymph # [place] # Baso # Seg Neutrophils % Seg Neuts % (Manual) Lymphocytes % (Manual) Monocytes % (Manual) Eosinophils % (Manual) Basophils % (Manual) Nucleated RBC % Seg Neutrophils # Seg Neutrophils # Man Lymphocytes # (Manual) Monocytes # (Manual) Eosinophils # (Manual) Basophils # (Manual) PT INR Fibrinogen dRVVT Confirm Interp Factor V Activity POC ABG pH POC ABG pCO2 POC ABG pO2 ABG pO2 ABG HCO3 ABG Base Excess ABG Hemoglobin Oxyhemoglobin Sodium Potassium Chloride 97.8 L Carbon Dioxide BUN 37 H Creatinine 2.0 H Glucose 109 H POC Glucose 117 H 111 H Lactic Acid Calcium 7.9 L Ionized Calcium Phosphorus 1.80 L D Magnesium Direct Bilirubin AST ALT Alkaline Phosphatase Lactate Dehydrogenase Troponin T C-Reactive Protein Total Protein Albumin Prealbumin Triglycerides Cholesterol LDL Cholesterol Direct HDL Cholesterol 25-OH Vitamin D Total PTH Intact Urine pH Urine WBC (Auto) Urine Creatinine Urine Total Protein Fluid Total Protein Vancomycin Trough Rheumatoid Factor Complement C4 Miscellaneous Test Crossmatch 11/26/16 11/27/16 11/27/16 17:14 04:50 06:02 WBC RBC Hgb Hct MCV MCH MCHC RDW Plt Count Lymph % (Auto) [place] % (Auto) Lymph # [place] # Baso # Seg Neutrophils % Seg Neuts % (Manual) Lymphocytes % (Manual) Monocytes % (Manual) Eosinophils % (Manual) Basophils % (Manual) Nucleated RBC % Seg Neutrophils # Seg Neutrophils # Man Lymphocytes # (Manual) Monocytes # (Manual) Eosinophils # (Manual) Basophils # (Manual) PT INR Fibrinogen dRVVT Confirm Interp Factor V Activity POC ABG pH POC ABG pCO2 POC ABG pO2 ABG pO2 75.2 L ABG HCO3 26.4 H ABG Base Excess ABG Hemoglobin 7.6 L Oxyhemoglobin 94.8 L Sodium Potassium Chloride Carbon Dioxide BUN 49 H Creatinine 2.3 H Glucose POC Glucose 115 H Lactic Acid Calcium Ionized Calcium Phosphorus 1.50 L Magnesium Direct Bilirubin AST ALT Alkaline Phosphatase Lactate Dehydrogenase Troponin T C-Reactive Protein Total Protein Albumin Prealbumin Triglycerides Cholesterol LDL Cholesterol Direct HDL Cholesterol 25-OH Vitamin D Total PTH Intact Urine pH Urine WBC (Auto) Urine Creatinine Urine Total Protein Fluid Total Protein Vancomycin Trough Rheumatoid Factor Complement C4 Miscellaneous Test Crossmatch 11/27/16 11/27/16 11/27/16 06:02 11:25 17:25 WBC 11.6 H RBC 2.75 L Hgb 7.6 L Hct 23.4 L MCV MCH MCHC RDW 16.5 H Plt Count Lymph % (Auto) [place] % (Auto) Lymph # [place] # Baso # Seg Neutrophils % Seg Neuts % (Manual) Lymphocytes % (Manual) Monocytes % (Manual) Eosinophils % (Manual) Basophils % (Manual) Nucleated RBC % Seg Neutrophils # Seg Neutrophils # Man Lymphocytes # (Manual) Monocytes # (Manual) Eosinophils # (Manual) Basophils # (Manual) PT INR Fibrinogen dRVVT Confirm Interp Factor V Activity POC ABG pH POC ABG pCO2 POC ABG pO2 ABG pO2 ABG HCO3 ABG Base Excess ABG Hemoglobin Oxyhemoglobin Sodium Potassium Chloride Carbon Dioxide BUN Creatinine Glucose POC Glucose 114 H 126 H Lactic Acid Calcium Ionized Calcium Phosphorus Magnesium Direct Bilirubin AST ALT Alkaline Phosphatase Lactate Dehydrogenase Troponin T C-Reactive Protein Total Protein Albumin Prealbumin Triglycerides Cholesterol LDL Cholesterol Direct HDL Cholesterol 25-OH Vitamin D Total PTH Intact Urine pH Urine WBC (Auto) Urine Creatinine Urine Total Protein Fluid Total Protein Vancomycin Trough Rheumatoid Factor Complement C4 Miscellaneous Test Crossmatch 11/28/16 11/28/16 11/28/16 04:45 05:33 05:44 WBC RBC Hgb Hct MCV MCH MCHC RDW Plt Count Lymph % (Auto) [place] % (Auto) Lymph # [place] # Baso # Seg Neutrophils % Seg Neuts % (Manual) Lymphocytes % (Manual) Monocytes % (Manual) Eosinophils % (Manual) Basophils % (Manual) Nucleated RBC % Seg Neutrophils # Seg Neutrophils # Man Lymphocytes # (Manual) Monocytes # (Manual) Eosinophils # (Manual) Basophils # (Manual) PT INR Fibrinogen dRVVT Confirm Interp Factor V Activity POC ABG pH POC ABG pCO2 POC ABG pO2 ABG pO2 99.3 H ABG HCO3 ABG Base Excess ABG Hemoglobin 8.3 L Oxyhemoglobin Sodium Potassium Chloride Carbon Dioxide BUN 63 H Creatinine 2.4 H Glucose 102 H POC Glucose 108 H Lactic Acid Calcium Ionized Calcium Phosphorus 1.80 L Magnesium Direct Bilirubin AST ALT Alkaline Phosphatase Lactate Dehydrogenase Troponin T C-Reactive Protein Total Protein Albumin Prealbumin Triglycerides Cholesterol LDL Cholesterol Direct HDL Cholesterol 25-OH Vitamin D Total PTH Intact Urine pH Urine WBC (Auto) Urine Creatinine Urine Total Protein Fluid Total Protein Vancomycin Trough Rheumatoid Factor Complement C4 Miscellaneous Test Crossmatch 11/28/16 11/28/16 11/28/16 12:31 16:09 23:46 WBC RBC Hgb Hct MCV MCH MCHC RDW Plt Count Lymph % (Auto) [place] % (Auto) Lymph # [place] # Baso # Seg Neutrophils % Seg Neuts % (Manual) Lymphocytes % (Manual) Monocytes % (Manual) Eosinophils % (Manual) Basophils % (Manual) Nucleated RBC % Seg Neutrophils # Seg Neutrophils # Man Lymphocytes # (Manual) Monocytes # (Manual) Eosinophils # (Manual) Basophils # (Manual) PT INR Fibrinogen dRVVT Confirm Interp Factor V Activity POC ABG pH POC ABG pCO2 POC ABG pO2 ABG pO2 ABG HCO3 ABG Base Excess ABG Hemoglobin Oxyhemoglobin Sodium Potassium Chloride Carbon Dioxide BUN Creatinine Glucose POC Glucose 126 H 111 H 119 H Lactic Acid Calcium Ionized Calcium Phosphorus Magnesium Direct Bilirubin AST ALT Alkaline Phosphatase Lactate Dehydrogenase Troponin T C-Reactive Protein Total Protein Albumin Prealbumin Triglycerides Cholesterol LDL Cholesterol Direct HDL Cholesterol 25-OH Vitamin D Total PTH Intact Urine pH Urine WBC (Auto) Urine Creatinine Urine Total Protein Fluid Total Protein Vancomycin Trough Rheumatoid Factor Complement C4 Miscellaneous Test Crossmatch 11/29/16 11/29/16 11/29/16 03:33 04:52 05:10 WBC RBC Hgb Hct MCV MCH MCHC RDW Plt Count Lymph % (Auto) [place] % (Auto) Lymph # [place] # Baso # Seg Neutrophils % Seg Neuts % (Manual) Lymphocytes % (Manual) Monocytes % (Manual) Eosinophils % (Manual) Basophils % (Manual) Nucleated RBC % Seg Neutrophils # Seg Neutrophils # Man Lymphocytes # (Manual) Monocytes # (Manual) Eosinophils # (Manual) Basophils # (Manual) PT INR Fibrinogen dRVVT Confirm Interp Factor V Activity POC ABG pH POC ABG pCO2 POC ABG pO2 ABG pO2 ABG HCO3 ABG Base Excess ABG Hemoglobin 7.0 L Oxyhemoglobin 94.9 L Sodium Potassium Chloride Carbon Dioxide BUN 73 H Creatinine 2.7 H Glucose POC Glucose 108 H Lactic Acid Calcium Ionized Calcium Phosphorus Magnesium Direct Bilirubin AST ALT Alkaline Phosphatase Lactate Dehydrogenase Troponin T C-Reactive Protein Total Protein Albumin Prealbumin Triglycerides Cholesterol LDL Cholesterol Direct HDL Cholesterol 25-OH Vitamin D Total PTH Intact Urine pH Urine WBC (Auto) Urine Creatinine Urine Total Protein Fluid Total Protein Vancomycin Trough Rheumatoid Factor Complement C4 Miscellaneous Test Crossmatch 11/29/16 11/29/16 11/29/16 12:16 18:05 23:46 WBC RBC Hgb Hct MCV MCH MCHC RDW Plt Count Lymph % (Auto) [place] % (Auto) Lymph # [place] # Baso # Seg Neutrophils % Seg Neuts % (Manual) Lymphocytes % (Manual) Monocytes % (Manual) Eosinophils % (Manual) Basophils % (Manual) Nucleated RBC % Seg Neutrophils # Seg Neutrophils # Man Lymphocytes # (Manual) Monocytes # (Manual) Eosinophils # (Manual) Basophils # (Manual) PT INR Fibrinogen dRVVT Confirm Interp Factor V Activity POC ABG pH POC ABG pCO2 POC ABG pO2 ABG pO2 ABG HCO3 ABG Base Excess ABG Hemoglobin Oxyhemoglobin Sodium Potassium Chloride Carbon Dioxide BUN Creatinine Glucose POC Glucose 133 H 146 H 141 H Lactic Acid Calcium Ionized Calcium Phosphorus Magnesium Direct Bilirubin AST ALT Alkaline Phosphatase Lactate Dehydrogenase Troponin T C-Reactive Protein Total Protein Albumin Prealbumin Triglycerides Cholesterol LDL Cholesterol Direct HDL Cholesterol 25-OH Vitamin D Total PTH Intact Urine pH Urine WBC (Auto) Urine Creatinine Urine Total Protein Fluid Total Protein Vancomycin Trough Rheumatoid Factor Complement C4 Miscellaneous Test Crossmatch 11/30/16 11/30/16 11/30/16 04:17 04:17 04:32 WBC 12.0 H RBC 2.80 L Hgb 7.8 L Hct 23.6 L MCV MCH MCHC RDW 16.6 H Plt Count Lymph % (Auto) [place] % (Auto) 11.3 H Lymph # [place] # 1.4 H Baso # Seg Neutrophils % Seg Neuts % (Manual) Lymphocytes % (Manual) Monocytes % (Manual) Eosinophils % (Manual) Basophils % (Manual) Nucleated RBC % Seg Neutrophils # 8.2 H Seg Neutrophils # Man Lymphocytes # (Manual) Monocytes # (Manual) Eosinophils # (Manual) Basophils # (Manual) PT INR Fibrinogen dRVVT Confirm Interp Factor V Activity POC ABG pH POC ABG pCO2 POC ABG pO2 ABG pO2 ABG HCO3 ABG Base Excess ABG Hemoglobin Oxyhemoglobin Sodium 169 H* D Potassium 5.1 H Chloride 121.5 H Carbon Dioxide BUN 34 H Creatinine 1.3 H D Glucose 133 H POC Glucose 131 H Lactic Acid Calcium 10.3 H Ionized Calcium Phosphorus Magnesium Direct Bilirubin AST ALT Alkaline Phosphatase Lactate Dehydrogenase Troponin T C-Reactive Protein Total Protein Albumin Prealbumin Triglycerides Cholesterol LDL Cholesterol Direct HDL Cholesterol 25-OH Vitamin D Total PTH Intact Urine pH Urine WBC (Auto) Urine Creatinine Urine Total Protein Fluid Total Protein Vancomycin Trough Rheumatoid Factor Complement C4 Miscellaneous Test Crossmatch 11/30/16 11/30/16 11/30/16 05:45 11:10 17:26 WBC RBC Hgb Hct MCV MCH MCHC RDW Plt Count Lymph % (Auto) [place] % (Auto) Lymph # [place] # Baso # Seg Neutrophils % Seg Neuts % (Manual) Lymphocytes % (Manual) Monocytes % (Manual) Eosinophils % (Manual) Basophils % (Manual) Nucleated RBC % Seg Neutrophils # Seg Neutrophils # Man Lymphocytes # (Manual) Monocytes # (Manual) Eosinophils # (Manual) Basophils # (Manual) PT INR Fibrinogen dRVVT Confirm Interp Factor V Activity POC ABG pH POC ABG pCO2 POC ABG pO2 ABG pO2 ABG HCO3 ABG Base Excess ABG Hemoglobin Oxyhemoglobin Sodium Potassium Chloride Carbon Dioxide BUN 45 H Creatinine 1.6 H Glucose 131 H POC Glucose 146 H 134 H Lactic Acid Calcium Ionized Calcium Phosphorus Magnesium Direct Bilirubin AST ALT Alkaline Phosphatase Lactate Dehydrogenase Troponin T C-Reactive Protein Total Protein Albumin Prealbumin Triglycerides Cholesterol LDL Cholesterol Direct HDL Cholesterol 25-OH Vitamin D Total PTH Intact Urine pH Urine WBC (Auto) Urine Creatinine Urine Total Protein Fluid Total Protein Vancomycin Trough Rheumatoid Factor Complement C4 Miscellaneous Test Crossmatch 11/30/16 12/01/16 12/01/16 23:35 00:06 03:35 WBC RBC Hgb Hct MCV MCH MCHC RDW Plt Count Lymph % (Auto) [place] % (Auto) Lymph # [place] # Baso # Seg Neutrophils % Seg Neuts % (Manual) Lymphocytes % (Manual) Monocytes % (Manual) Eosinophils % (Manual) Basophils % (Manual) Nucleated RBC % Seg Neutrophils # Seg Neutrophils # Man Lymphocytes # (Manual) Monocytes # (Manual) Eosinophils # (Manual) Basophils # (Manual) PT INR Fibrinogen dRVVT Confirm Interp Factor V Activity POC ABG pH POC ABG pCO2 POC ABG pO2 ABG pO2 ABG HCO3 ABG Base Excess ABG Hemoglobin 6.9 L Oxyhemoglobin Sodium Potassium Chloride Carbon Dioxide BUN 58 H Creatinine 1.8 H Glucose 146 H POC Glucose 151 H Lactic Acid Calcium Ionized Calcium Phosphorus Magnesium Direct Bilirubin AST ALT Alkaline Phosphatase Lactate Dehydrogenase Troponin T C-Reactive Protein Total Protein Albumin Prealbumin Triglycerides Cholesterol LDL Cholesterol Direct HDL Cholesterol 25-OH Vitamin D Total PTH Intact Urine pH Urine WBC (Auto) Urine Creatinine Urine Total Protein Fluid Total Protein Vancomycin Trough Rheumatoid Factor Complement C4 Miscellaneous Test Crossmatch 12/01/16 12/01/16 12/01/16 03:35 05:47 11:52 WBC 12.3 H RBC 2.82 L Hgb 7.8 L Hct 23.7 L MCV MCH MCHC RDW 16.7 H Plt Count Lymph % (Auto) [place] % (Auto) 9.8 H Lymph # [place] # 1.2 H Baso # Seg Neutrophils % Seg Neuts % (Manual) Lymphocytes % (Manual) Monocytes % (Manual) Eosinophils % (Manual) Basophils % (Manual) Nucleated RBC % Seg Neutrophils # 8.4 H Seg Neutrophils # Man Lymphocytes # (Manual) Monocytes # (Manual) Eosinophils # (Manual) Basophils # (Manual) PT INR Fibrinogen dRVVT Confirm Interp Factor V Activity POC ABG pH POC ABG pCO2 POC ABG pO2 ABG pO2 ABG HCO3 ABG Base Excess ABG Hemoglobin Oxyhemoglobin Sodium Potassium Chloride Carbon Dioxide BUN Creatinine Glucose POC Glucose 152 H 152 H Lactic Acid Calcium Ionized Calcium Phosphorus Magnesium Direct Bilirubin AST ALT Alkaline Phosphatase Lactate Dehydrogenase Troponin T C-Reactive Protein Total Protein Albumin Prealbumin Triglycerides Cholesterol LDL Cholesterol Direct HDL Cholesterol 25-OH Vitamin D Total PTH Intact Urine pH Urine WBC (Auto) Urine Creatinine Urine Total Protein Fluid Total Protein Vancomycin Trough Rheumatoid Factor Complement C4 Miscellaneous Test Crossmatch 12/01/16 12/01/16 12/02/16 17:40 23:41 05:00 WBC RBC Hgb Hct MCV MCH MCHC RDW Plt Count Lymph % (Auto) [place] % (Auto) Lymph # [place] # Baso # Seg Neutrophils % Seg Neuts % (Manual) Lymphocytes % (Manual) Monocytes % (Manual) Eosinophils % (Manual) Basophils % (Manual) Nucleated RBC % Seg Neutrophils # Seg Neutrophils # Man Lymphocytes # (Manual) Monocytes # (Manual) Eosinophils # (Manual) Basophils # (Manual) PT INR Fibrinogen dRVVT Confirm Interp Factor V Activity POC ABG pH POC ABG pCO2 POC ABG pO2 ABG pO2 ABG HCO3 ABG Base Excess ABG Hemoglobin Oxyhemoglobin Sodium Potassium Chloride Carbon Dioxide BUN 45 H Creatinine Glucose 115 H POC Glucose 140 H 144 H Lactic Acid Calcium Ionized Calcium Phosphorus Magnesium Direct Bilirubin AST ALT Alkaline Phosphatase Lactate Dehydrogenase Troponin T C-Reactive Protein Total Protein Albumin Prealbumin Triglycerides Cholesterol LDL Cholesterol Direct HDL Cholesterol 25-OH Vitamin D Total PTH Intact Urine pH Urine WBC (Auto) Urine Creatinine Urine Total Protein Fluid Total Protein Vancomycin Trough Rheumatoid Factor Complement C4 Miscellaneous Test Crossmatch 12/02/16 12/02/16 12/02/16 05:31 11:20 17:38 WBC RBC Hgb Hct MCV MCH MCHC RDW Plt Count Lymph % (Auto) [place] % (Auto) Lymph # [place] # Baso # Seg Neutrophils % Seg Neuts % (Manual) Lymphocytes % (Manual) Monocytes % (Manual) Eosinophils % (Manual) Basophils % (Manual) Nucleated RBC % Seg Neutrophils # Seg Neutrophils # Man Lymphocytes # (Manual) Monocytes # (Manual) Eosinophils # (Manual) Basophils # (Manual) PT INR Fibrinogen dRVVT Confirm Interp Factor V Activity POC ABG pH POC ABG pCO2 POC ABG pO2 ABG pO2 ABG HCO3 ABG Base Excess ABG Hemoglobin Oxyhemoglobin Sodium Potassium Chloride Carbon Dioxide BUN Creatinine Glucose POC Glucose 136 H 177 H 139 H Lactic Acid Calcium Ionized Calcium Phosphorus Magnesium Direct Bilirubin AST ALT Alkaline Phosphatase Lactate Dehydrogenase Troponin T C-Reactive Protein Total Protein Albumin Prealbumin Triglycerides Cholesterol LDL Cholesterol Direct HDL Cholesterol 25-OH Vitamin D Total PTH Intact Urine pH Urine WBC (Auto) Urine Creatinine Urine Total Protein Fluid Total Protein Vancomycin Trough Rheumatoid Factor Complement C4 Miscellaneous Test Crossmatch 12/02/16 12/03/16 12/03/16 23:43 04:00 04:00 WBC 20.4 H RBC 2.74 L Hgb 7.4 L Hct 23.6 L MCV MCH 27 L MCHC RDW 17.1 H Plt Count Lymph % (Auto) [place] % (Auto) Lymph # [place] # Baso # Seg Neutrophils % Seg Neuts % (Manual) 31.0 L Lymphocytes % (Manual) Monocytes % (Manual) Eosinophils % (Manual) Basophils % (Manual) Nucleated RBC % Seg Neutrophils # Seg Neutrophils # Man Lymphocytes # (Manual) Monocytes # (Manual) Eosinophils # (Manual) Basophils # (Manual) PT INR Fibrinogen dRVVT Confirm Interp Factor V Activity POC ABG pH POC ABG pCO2 POC ABG pO2 ABG pO2 ABG HCO3 ABG Base Excess ABG Hemoglobin Oxyhemoglobin Sodium Potassium Chloride Carbon Dioxide BUN 61 H Creatinine 1.6 H Glucose 119 H POC Glucose 158 H Lactic Acid Calcium Ionized Calcium Phosphorus Magnesium Direct Bilirubin AST ALT Alkaline Phosphatase Lactate Dehydrogenase Troponin T C-Reactive Protein Total Protein Albumin Prealbumin Triglycerides Cholesterol LDL Cholesterol Direct HDL Cholesterol 25-OH Vitamin D Total PTH Intact Urine pH Urine WBC (Auto) Urine Creatinine Urine Total Protein Fluid Total Protein Vancomycin Trough Rheumatoid Factor Complement C4 Miscellaneous Test Crossmatch 12/03/16 12/03/16 12/03/16 05:02 12:11 18:16 WBC RBC Hgb Hct MCV MCH MCHC RDW Plt Count Lymph % (Auto) [place] % (Auto) Lymph # [place] # Baso # Seg Neutrophils % Seg Neuts % (Manual) Lymphocytes % (Manual) Monocytes % (Manual) Eosinophils % (Manual) Basophils % (Manual) Nucleated RBC % Seg Neutrophils # Seg Neutrophils # Man Lymphocytes # (Manual) Monocytes # (Manual) Eosinophils # (Manual) Basophils # (Manual) PT INR Fibrinogen dRVVT Confirm Interp Factor V Activity POC ABG pH POC ABG pCO2 POC ABG pO2 ABG pO2 ABG HCO3 ABG Base Excess ABG Hemoglobin Oxyhemoglobin Sodium Potassium Chloride Carbon Dioxide BUN Creatinine Glucose POC Glucose 146 H 157 H 124 H Lactic Acid Calcium Ionized Calcium Phosphorus Magnesium Direct Bilirubin AST ALT Alkaline Phosphatase Lactate Dehydrogenase Troponin T C-Reactive Protein Total Protein Albumin Prealbumin Triglycerides Cholesterol LDL Cholesterol Direct HDL Cholesterol 25-OH Vitamin D Total PTH Intact Urine pH Urine WBC (Auto) Urine Creatinine Urine Total Protein Fluid Total Protein Vancomycin Trough Rheumatoid Factor Complement C4 Miscellaneous Test Crossmatch 12/03/16 12/04/16 12/04/16 23:41 04:00 04:45 WBC RBC Hgb Hct MCV MCH MCHC RDW Plt Count Lymph % (Auto) [place] % (Auto) Lymph # [place] # Baso # Seg Neutrophils % Seg Neuts % (Manual) Lymphocytes % (Manual) Monocytes % (Manual) Eosinophils % (Manual) Basophils % (Manual) Nucleated RBC % Seg Neutrophils # Seg Neutrophils # Man Lymphocytes # (Manual) Monocytes # (Manual) Eosinophils # (Manual) Basophils # (Manual) PT INR Fibrinogen dRVVT Confirm Interp Factor V Activity POC ABG pH POC ABG pCO2 POC ABG pO2 ABG pO2 ABG HCO3 ABG Base Excess ABG Hemoglobin Oxyhemoglobin Sodium Potassium Chloride Carbon Dioxide BUN 76 H Creatinine 1.6 H Glucose POC Glucose 130 H 136 H Lactic Acid Calcium Ionized Calcium Phosphorus Magnesium Direct Bilirubin AST ALT Alkaline Phosphatase 155 H Lactate Dehydrogenase Troponin T C-Reactive Protein Total Protein 5.5 L Albumin 1.5 L Prealbumin Triglycerides Cholesterol LDL Cholesterol Direct HDL Cholesterol 25-OH Vitamin D Total PTH Intact Urine pH Urine WBC (Auto) Urine Creatinine Urine Total Protein Fluid Total Protein Vancomycin Trough Rheumatoid Factor Complement C4 Miscellaneous Test Crossmatch 12/04/16 12/04/16 12/05/16 12:08 17:23 00:10 WBC RBC Hgb Hct MCV MCH MCHC RDW Plt Count Lymph % (Auto) [place] % (Auto) Lymph # [place] # Baso # Seg Neutrophils % Seg Neuts % (Manual) Lymphocytes % (Manual) Monocytes % (Manual) Eosinophils % (Manual) Basophils % (Manual) Nucleated RBC % Seg Neutrophils # Seg Neutrophils # Man Lymphocytes # (Manual) Monocytes # (Manual) Eosinophils # (Manual) Basophils # (Manual) PT INR Fibrinogen dRVVT Confirm Interp Factor V Activity POC ABG pH POC ABG pCO2 POC ABG pO2 ABG pO2 ABG HCO3 ABG Base Excess ABG Hemoglobin Oxyhemoglobin Sodium Potassium Chloride Carbon Dioxide BUN Creatinine Glucose POC Glucose 114 H 129 H 124 H Lactic Acid Calcium Ionized Calcium Phosphorus Magnesium Direct Bilirubin AST ALT Alkaline Phosphatase Lactate Dehydrogenase Troponin T C-Reactive Protein Total Protein Albumin Prealbumin Triglycerides Cholesterol LDL Cholesterol Direct HDL Cholesterol 25-OH Vitamin D Total PTH Intact Urine pH Urine WBC (Auto) Urine Creatinine Urine Total Protein Fluid Total Protein Vancomycin Trough Rheumatoid Factor Complement C4 Miscellaneous Test Crossmatch 12/05/16 12/05/16 12/05/16 05:00 05:00 05:18 WBC RBC Hgb Hct MCV MCH MCHC RDW Plt Count Lymph % (Auto) [place] % (Auto) Lymph # [place] # Baso # Seg Neutrophils % Seg Neuts % (Manual) Lymphocytes % (Manual) Monocytes % (Manual) Eosinophils % (Manual) Basophils % (Manual) Nucleated RBC % Seg Neutrophils # Seg Neutrophils # Man Lymphocytes # (Manual) Monocytes # (Manual) Eosinophils # (Manual) Basophils # (Manual) PT INR Fibrinogen dRVVT Confirm Interp Factor V Activity POC ABG pH POC ABG pCO2 POC ABG pO2 ABG pO2 ABG HCO3 ABG Base Excess ABG Hemoglobin Oxyhemoglobin Sodium Potassium Chloride Carbon Dioxide 21 L BUN 85 H Creatinine 1.9 H Glucose 131 H POC Glucose 154 H Lactic Acid Calcium Ionized Calcium Phosphorus Magnesium Direct Bilirubin AST ALT Alkaline Phosphatase Lactate Dehydrogenase Troponin T C-Reactive Protein 19.30 H Total Protein Albumin Prealbumin Triglycerides Cholesterol LDL Cholesterol Direct HDL Cholesterol 25-OH Vitamin D Total PTH Intact Urine pH Urine WBC (Auto) Urine Creatinine Urine Total Protein Fluid Total Protein Vancomycin Trough Rheumatoid Factor Complement C4 Miscellaneous Test Crossmatch 12/05/16 12/05/16 12/05/16 11:43 17:46 23:25 WBC RBC Hgb Hct MCV MCH MCHC RDW Plt Count Lymph % (Auto) [place] % (Auto) Lymph # [place] # Baso # Seg Neutrophils % Seg Neuts % (Manual) Lymphocytes % (Manual) Monocytes % (Manual) Eosinophils % (Manual) Basophils % (Manual) Nucleated RBC % Seg Neutrophils # Seg Neutrophils # Man Lymphocytes # (Manual) Monocytes # (Manual) Eosinophils # (Manual) Basophils # (Manual) PT INR Fibrinogen dRVVT Confirm Interp Factor V Activity POC ABG pH POC ABG pCO2 POC ABG pO2 ABG pO2 ABG HCO3 ABG Base Excess ABG Hemoglobin Oxyhemoglobin Sodium Potassium Chloride Carbon Dioxide BUN Creatinine Glucose POC Glucose 117 H 113 H 111 H Lactic Acid Calcium Ionized Calcium Phosphorus Magnesium Direct Bilirubin AST ALT Alkaline Phosphatase Lactate Dehydrogenase Troponin T C-Reactive Protein Total Protein Albumin Prealbumin Triglycerides Cholesterol LDL Cholesterol Direct HDL Cholesterol 25-OH Vitamin D Total PTH Intact Urine pH Urine WBC (Auto) Urine Creatinine Urine Total Protein Fluid Total Protein Vancomycin Trough Rheumatoid Factor Complement C4 Miscellaneous Test Crossmatch 12/05/16 12/06/16 12/06/16 Unknown 04:58 06:00 WBC RBC Hgb Hct MCV MCH MCHC RDW Plt Count Lymph % (Auto) [place] % (Auto) Lymph # [place] # Baso # Seg Neutrophils % Seg Neuts % (Manual) Lymphocytes % (Manual) Monocytes % (Manual) Eosinophils % (Manual) Basophils % (Manual) Nucleated RBC % Seg Neutrophils # Seg Neutrophils # Man Lymphocytes # (Manual) Monocytes # (Manual) Eosinophils # (Manual) Basophils # (Manual) PT INR Fibrinogen dRVVT Confirm Interp Factor V Activity POC ABG pH POC ABG pCO2 POC ABG pO2 ABG pO2 75.2 L ABG HCO3 ABG Base Excess -3.4 L ABG Hemoglobin 7.4 L Oxyhemoglobin 94.5 L Sodium Potassium Chloride Carbon Dioxide 20 L BUN 99 H Creatinine 2.1 H Glucose 126 H POC Glucose 145 H Lactic Acid Calcium Ionized Calcium Phosphorus 4.80 H Magnesium Direct Bilirubin AST ALT Alkaline Phosphatase Lactate Dehydrogenase Troponin T C-Reactive Protein Total Protein Albumin Prealbumin Triglycerides Cholesterol LDL Cholesterol Direct HDL Cholesterol 25-OH Vitamin D Total PTH Intact Urine pH Urine WBC (Auto) Urine Creatinine Urine Total Protein Fluid Total Protein Vancomycin Trough Rheumatoid Factor Complement C4 Miscellaneous Test Crossmatch 12/06/16 12/06/16 12/06/16 06:46 11:54 17:55 WBC RBC Hgb 8.3 L Hct 26.4 L MCV MCH MCHC RDW Plt Count Lymph % (Auto) [place] % (Auto) Lymph # [place] # Baso # Seg Neutrophils % Seg Neuts % (Manual) Lymphocytes % (Manual) Monocytes % (Manual) Eosinophils % (Manual) Basophils % (Manual) Nucleated RBC % Seg Neutrophils # Seg Neutrophils # Man Lymphocytes # (Manual) Monocytes # (Manual) Eosinophils # (Manual) Basophils # (Manual) PT INR Fibrinogen dRVVT Confirm Interp Factor V Activity POC ABG pH POC ABG pCO2 POC ABG pO2 ABG pO2 ABG HCO3 ABG Base Excess ABG Hemoglobin Oxyhemoglobin Sodium Potassium Chloride Carbon Dioxide BUN Creatinine Glucose POC Glucose 126 H 157 H Lactic Acid Calcium Ionized Calcium Phosphorus Magnesium Direct Bilirubin AST ALT Alkaline Phosphatase Lactate Dehydrogenase Troponin T C-Reactive Protein Total Protein Albumin Prealbumin Triglycerides Cholesterol LDL Cholesterol Direct HDL Cholesterol 25-OH Vitamin D Total PTH Intact Urine pH Urine WBC (Auto) Urine Creatinine Urine Total Protein Fluid Total Protein Vancomycin Trough Rheumatoid Factor Complement C4 Miscellaneous Test Crossmatch 12/06/16 12/07/16 12/07/16 23:59 05:34 06:30 WBC RBC Hgb Hct MCV MCH MCHC RDW Plt Count Lymph % (Auto) [place] % (Auto) Lymph # [place] # Baso # Seg Neutrophils % Seg Neuts % (Manual) Lymphocytes % (Manual) Monocytes % (Manual) Eosinophils % (Manual) Basophils % (Manual) Nucleated RBC % Seg Neutrophils # Seg Neutrophils # Man Lymphocytes # (Manual) Monocytes # (Manual) Eosinophils # (Manual) Basophils # (Manual) PT INR Fibrinogen dRVVT Confirm Interp Factor V Activity POC ABG pH POC ABG pCO2 POC ABG pO2 ABG pO2 ABG HCO3 ABG Base Excess ABG Hemoglobin Oxyhemoglobin Sodium Potassium Chloride Carbon Dioxide BUN 67 H Creatinine 1.4 H Glucose 126 H POC Glucose 129 H 129 H Lactic Acid Calcium Ionized Calcium Phosphorus Magnesium Direct Bilirubin AST ALT Alkaline Phosphatase Lactate Dehydrogenase Troponin T C-Reactive Protein Total Protein Albumin Prealbumin Triglycerides Cholesterol LDL Cholesterol Direct HDL Cholesterol 25-OH Vitamin D Total PTH Intact Urine pH Urine WBC (Auto) Urine Creatinine Urine Total Protein Fluid Total Protein Vancomycin Trough Rheumatoid Factor Complement C4 Miscellaneous Test Crossmatch 12/07/16 12/07/16 12/07/16 06:30 08:00 09:45 WBC 18.8 H RBC 2.52 L Hgb 6.9 L 6.8 L Hct 21.2 L 21.1 L MCV MCH 27 L MCHC RDW 18.0 H Plt Count Lymph % (Auto) [place] % (Auto) 9.9 H Lymph # [place] # 1.9 H Baso # Seg Neutrophils % 71.8 H Seg Neuts % (Manual) Lymphocytes % (Manual) Monocytes % (Manual) Eosinophils % (Manual) Basophils % (Manual) Nucleated RBC % Seg Neutrophils # 13.5 H Seg Neutrophils # Man Lymphocytes # (Manual) Monocytes # (Manual) Eosinophils # (Manual) Basophils # (Manual) PT INR Fibrinogen dRVVT Confirm Interp Factor V Activity POC ABG pH POC ABG pCO2 POC ABG pO2 ABG pO2 ABG HCO3 ABG Base Excess ABG Hemoglobin Oxyhemoglobin Sodium Potassium Chloride Carbon Dioxide BUN Creatinine Glucose POC Glucose Lactic Acid Calcium Ionized Calcium Phosphorus Magnesium Direct Bilirubin AST ALT Alkaline Phosphatase Lactate Dehydrogenase Troponin T C-Reactive Protein Total Protein Albumin Prealbumin Triglycerides Cholesterol LDL Cholesterol Direct HDL Cholesterol 25-OH Vitamin D Total PTH Intact Urine pH Urine WBC (Auto) Urine Creatinine Urine Total Protein Fluid Total Protein Vancomycin Trough Rheumatoid Factor Complement C4 Miscellaneous Test Crossmatch See Detail 12/07/16 12/07/16 12/07/16 11:44 18:19 23:59 WBC RBC Hgb Hct MCV MCH MCHC RDW Plt Count Lymph % (Auto) [place] % (Auto) Lymph # [place] # Baso # Seg Neutrophils % Seg Neuts % (Manual) Lymphocytes % (Manual) Monocytes % (Manual) Eosinophils % (Manual) Basophils % (Manual) Nucleated RBC % Seg Neutrophils # Seg Neutrophils # Man Lymphocytes # (Manual) Monocytes # (Manual) Eosinophils # (Manual) Basophils # (Manual) PT INR Fibrinogen dRVVT Confirm Interp Factor V Activity POC ABG pH POC ABG pCO2 POC ABG pO2 ABG pO2 ABG HCO3 ABG Base Excess ABG Hemoglobin Oxyhemoglobin Sodium Potassium Chloride Carbon Dioxide BUN Creatinine Glucose POC Glucose 137 H 138 H 133 H Lactic Acid Calcium Ionized Calcium Phosphorus Magnesium Direct Bilirubin AST ALT Alkaline Phosphatase Lactate Dehydrogenase Troponin T C-Reactive Protein Total Protein Albumin Prealbumin Triglycerides Cholesterol LDL Cholesterol Direct HDL Cholesterol 25-OH Vitamin D Total PTH Intact Urine pH Urine WBC (Auto) Urine Creatinine Urine Total Protein Fluid Total Protein Vancomycin Trough Rheumatoid Factor Complement C4 Miscellaneous Test Crossmatch 12/08/16 12/08/16 12/08/16 05:25 05:30 05:30 WBC 23.8 H RBC 2.88 L Hgb 8.1 L Hct 24.3 L MCV MCH MCHC RDW 16.7 H Plt Count Lymph % (Auto) [place] % (Auto) Lymph # [place] # Baso # Seg Neutrophils % Seg Neuts % (Manual) 76.0 H Lymphocytes % (Manual) 9.0 L Monocytes % (Manual) 9.0 H Eosinophils % (Manual) Basophils % (Manual) Nucleated RBC % Seg Neutrophils # Seg Neutrophils # Man 18.1 H Lymphocytes # (Manual) Monocytes # (Manual) 2.1 H Eosinophils # (Manual) Basophils # (Manual) PT INR Fibrinogen dRVVT Confirm Interp Factor V Activity POC ABG pH POC ABG pCO2 POC ABG pO2 ABG pO2 ABG HCO3 ABG Base Excess ABG Hemoglobin Oxyhemoglobin Sodium Potassium Chloride Carbon Dioxide 21 L BUN 76 H Creatinine 1.6 H Glucose 133 H POC Glucose 177 H Lactic Acid Calcium Ionized Calcium Phosphorus Magnesium Direct Bilirubin AST ALT Alkaline Phosphatase Lactate Dehydrogenase Troponin T C-Reactive Protein Total Protein Albumin Prealbumin Triglycerides Cholesterol LDL Cholesterol Direct HDL Cholesterol 25-OH Vitamin D Total PTH Intact Urine pH Urine WBC (Auto) Urine Creatinine Urine Total Protein Fluid Total Protein Vancomycin Trough Rheumatoid Factor Complement C4 Miscellaneous Test Crossmatch 12/08/16 12/08/16 12/09/16 11:45 18:00 00:00 WBC RBC Hgb Hct MCV MCH MCHC RDW Plt Count Lymph % (Auto) [place] % (Auto) Lymph # [place] # Baso # Seg Neutrophils % Seg Neuts % (Manual) Lymphocytes % (Manual) Monocytes % (Manual) Eosinophils % (Manual) Basophils % (Manual) Nucleated RBC % Seg Neutrophils # Seg Neutrophils # Man Lymphocytes # (Manual) Monocytes # (Manual) Eosinophils # (Manual) Basophils # (Manual) PT INR Fibrinogen dRVVT Confirm Interp Factor V Activity POC ABG pH POC ABG pCO2 POC ABG pO2 ABG pO2 ABG HCO3 ABG Base Excess ABG Hemoglobin Oxyhemoglobin Sodium Potassium Chloride Carbon Dioxide BUN Creatinine Glucose POC Glucose 163 H 123 H 137 H Lactic Acid Calcium Ionized Calcium Phosphorus Magnesium Direct Bilirubin AST ALT Alkaline Phosphatase Lactate Dehydrogenase Troponin T C-Reactive Protein Total Protein Albumin Prealbumin Triglycerides Cholesterol LDL Cholesterol Direct HDL Cholesterol 25-OH Vitamin D Total PTH Intact Urine pH Urine WBC (Auto) Urine Creatinine Urine Total Protein Fluid Total Protein Vancomycin Trough Rheumatoid Factor Complement C4 Miscellaneous Test Crossmatch 12/09/16 12/09/16 12/09/16 05:34 06:00 06:00 WBC 15.5 H RBC 2.87 L Hgb 8.0 L Hct 24.2 L MCV MCH MCHC RDW 17.2 H Plt Count Lymph % (Auto) [place] % (Auto) 11.6 H Lymph # [place] # 1.8 H Baso # Seg Neutrophils % 70.8 H Seg Neuts % (Manual) Lymphocytes % (Manual) Monocytes % (Manual) Eosinophils % (Manual) Basophils % (Manual) Nucleated RBC % Seg Neutrophils # 11.0 H Seg Neutrophils # Man Lymphocytes # (Manual) Monocytes # (Manual) Eosinophils # (Manual) Basophils # (Manual) PT INR Fibrinogen dRVVT Confirm Interp Factor V Activity POC ABG pH POC ABG pCO2 POC ABG pO2 ABG pO2 ABG HCO3 ABG Base Excess ABG Hemoglobin Oxyhemoglobin Sodium Potassium Chloride Carbon Dioxide BUN 51 H Creatinine Glucose 117 H POC Glucose 136 H Lactic Acid Calcium Ionized Calcium Phosphorus Magnesium Direct Bilirubin AST ALT Alkaline Phosphatase Lactate Dehydrogenase Troponin T C-Reactive Protein Total Protein Albumin Prealbumin Triglycerides Cholesterol LDL Cholesterol Direct HDL Cholesterol 25-OH Vitamin D Total PTH Intact Urine pH Urine WBC (Auto) Urine Creatinine Urine Total Protein Fluid Total Protein Vancomycin Trough Rheumatoid Factor Complement C4 Miscellaneous Test Crossmatch 12/09/16 12/09/16 12/09/16 12:29 17:52 23:10 WBC RBC Hgb Hct MCV MCH MCHC RDW Plt Count Lymph % (Auto) [place] % (Auto) Lymph # [place] # Baso # Seg Neutrophils % Seg Neuts % (Manual) Lymphocytes % (Manual) Monocytes % (Manual) Eosinophils % (Manual) Basophils % (Manual) Nucleated RBC % Seg Neutrophils # Seg Neutrophils # Man Lymphocytes # (Manual) Monocytes # (Manual) Eosinophils # (Manual) Basophils # (Manual) PT INR Fibrinogen dRVVT Confirm Interp Factor V Activity POC ABG pH POC ABG pCO2 POC ABG pO2 ABG pO2 ABG HCO3 ABG Base Excess ABG Hemoglobin Oxyhemoglobin Sodium Potassium Chloride Carbon Dioxide BUN Creatinine Glucose POC Glucose 139 H 140 H 129 H Lactic Acid Calcium Ionized Calcium Phosphorus Magnesium Direct Bilirubin AST ALT Alkaline Phosphatase Lactate Dehydrogenase Troponin T C-Reactive Protein Total Protein Albumin Prealbumin Triglycerides Cholesterol LDL Cholesterol Direct HDL Cholesterol 25-OH Vitamin D Total PTH Intact Urine pH Urine WBC (Auto) Urine Creatinine Urine Total Protein Fluid Total Protein Vancomycin Trough Rheumatoid Factor Complement C4 Miscellaneous Test Crossmatch 12/10/16 12/10/16 12/10/16 05:00 05:00 06:54 WBC 15.7 H RBC 2.87 L Hgb 8.2 L Hct 24.4 L MCV MCH MCHC RDW 17.2 H Plt Count Lymph % (Auto) [place] % (Auto) 8.3 H Lymph # [place] # 1.3 H Baso # Seg Neutrophils % 72.8 H Seg Neuts % (Manual) Lymphocytes % (Manual) Monocytes % (Manual) Eosinophils % (Manual) Basophils % (Manual) Nucleated RBC % Seg Neutrophils # 11.4 H Seg Neutrophils # Man Lymphocytes # (Manual) Monocytes # (Manual) Eosinophils # (Manual) Basophils # (Manual) PT INR Fibrinogen dRVVT Confirm Interp Factor V Activity POC ABG pH POC ABG pCO2 POC ABG pO2 ABG pO2 ABG HCO3 ABG Base Excess ABG Hemoglobin Oxyhemoglobin Sodium Potassium Chloride Carbon Dioxide BUN 64 H Creatinine 1.4 H Glucose 134 H POC Glucose 154 H Lactic Acid Calcium Ionized Calcium Phosphorus Magnesium Direct Bilirubin AST ALT Alkaline Phosphatase Lactate Dehydrogenase Troponin T C-Reactive Protein Total Protein Albumin Prealbumin Triglycerides Cholesterol LDL Cholesterol Direct HDL Cholesterol 25-OH Vitamin D Total PTH Intact Urine pH Urine WBC (Auto) Urine Creatinine Urine Total Protein Fluid Total Protein Vancomycin Trough Rheumatoid Factor Complement C4 Miscellaneous Test Crossmatch 12/10/16 12/10/16 12/10/16 11:58 17:29 23:52 WBC RBC Hgb Hct MCV MCH MCHC RDW Plt Count Lymph % (Auto) [place] % (Auto) Lymph # [place] # Baso # Seg Neutrophils % Seg Neuts % (Manual) Lymphocytes % (Manual) Monocytes % (Manual) Eosinophils % (Manual) Basophils % (Manual) Nucleated RBC % Seg Neutrophils # Seg Neutrophils # Man Lymphocytes # (Manual) Monocytes # (Manual) Eosinophils # (Manual) Basophils # (Manual) PT INR Fibrinogen dRVVT Confirm Interp Factor V Activity POC ABG pH POC ABG pCO2 POC ABG pO2 ABG pO2 ABG HCO3 ABG Base Excess ABG Hemoglobin Oxyhemoglobin Sodium Potassium Chloride Carbon Dioxide BUN Creatinine Glucose POC Glucose 144 H 163 H 125 H Lactic Acid Calcium Ionized Calcium Phosphorus Magnesium Direct Bilirubin AST ALT Alkaline Phosphatase Lactate Dehydrogenase Troponin T C-Reactive Protein Total Protein Albumin Prealbumin Triglycerides Cholesterol LDL Cholesterol Direct HDL Cholesterol 25-OH Vitamin D Total PTH Intact Urine pH Urine WBC (Auto) Urine Creatinine Urine Total Protein Fluid Total Protein Vancomycin Trough Rheumatoid Factor Complement C4 Miscellaneous Test Crossmatch 12/11/16 12/11/16 12/11/16 05:38 06:30 06:30 WBC 14.4 H RBC 2.76 L Hgb 7.7 L Hct 23.4 L MCV MCH MCHC RDW 17.2 H Plt Count Lymph % (Auto) [place] % (Auto) 8.8 H Lymph # [place] # 1.3 H Baso # Seg Neutrophils % 72.5 H Seg Neuts % (Manual) Lymphocytes % (Manual) Monocytes % (Manual) Eosinophils % (Manual) Basophils % (Manual) Nucleated RBC % Seg Neutrophils # 10.5 H Seg Neutrophils # Man Lymphocytes # (Manual) Monocytes # (Manual) Eosinophils # (Manual) Basophils # (Manual) PT INR Fibrinogen dRVVT Confirm Interp Factor V Activity POC ABG pH POC ABG pCO2 POC ABG pO2 ABG pO2 ABG HCO3 ABG Base Excess ABG Hemoglobin Oxyhemoglobin Sodium Potassium Chloride Carbon Dioxide BUN 43 H Creatinine Glucose 124 H POC Glucose 141 H Lactic Acid Calcium 8.3 L Ionized Calcium Phosphorus Magnesium 1.60 L Direct Bilirubin AST ALT Alkaline Phosphatase Lactate Dehydrogenase Troponin T C-Reactive Protein Total Protein Albumin Prealbumin Triglycerides Cholesterol LDL Cholesterol Direct HDL Cholesterol 25-OH Vitamin D Total PTH Intact Urine pH Urine WBC (Auto) Urine Creatinine Urine Total Protein Fluid Total Protein Vancomycin Trough Rheumatoid Factor Complement C4 Miscellaneous Test Crossmatch 12/11/16 12/11/16 12/11/16 11:15 17:59 23:48 WBC RBC Hgb Hct MCV MCH MCHC RDW Plt Count Lymph % (Auto) [place] % (Auto) Lymph # [place] # Baso # Seg Neutrophils % Seg Neuts % (Manual) Lymphocytes % (Manual) Monocytes % (Manual) Eosinophils % (Manual) Basophils % (Manual) Nucleated RBC % Seg Neutrophils # Seg Neutrophils # Man Lymphocytes # (Manual) Monocytes # (Manual) Eosinophils # (Manual) Basophils # (Manual) PT INR Fibrinogen dRVVT Confirm Interp Factor V Activity POC ABG pH POC ABG pCO2 POC ABG pO2 ABG pO2 ABG HCO3 ABG Base Excess ABG Hemoglobin Oxyhemoglobin Sodium Potassium Chloride Carbon Dioxide BUN Creatinine Glucose POC Glucose 188 H 106 H 119 H Lactic Acid Calcium Ionized Calcium Phosphorus Magnesium Direct Bilirubin AST ALT Alkaline Phosphatase Lactate Dehydrogenase Troponin T C-Reactive Protein Total Protein Albumin Prealbumin Triglycerides Cholesterol LDL Cholesterol Direct HDL Cholesterol 25-OH Vitamin D Total PTH Intact Urine pH Urine WBC (Auto) Urine Creatinine Urine Total Protein Fluid Total Protein Vancomycin Trough Rheumatoid Factor Complement C4 Miscellaneous Test Crossmatch 12/12/16 12/12/16 12/12/16 05:00 06:01 12:20 WBC 16.7 H RBC 2.87 L Hgb 8.0 L Hct 24.2 L MCV MCH MCHC RDW 17.6 H Plt Count Lymph % (Auto) [place] % (Auto) Lymph # [place] # 1.2 H Baso # Seg Neutrophils % 75.3 H Seg Neuts % (Manual) Lymphocytes % (Manual) Monocytes % (Manual) Eosinophils % (Manual) Basophils % (Manual) Nucleated RBC % Seg Neutrophils # 12.6 H Seg Neutrophils # Man Lymphocytes # (Manual) Monocytes # (Manual) Eosinophils # (Manual) Basophils # (Manual) PT INR Fibrinogen dRVVT Confirm Interp Factor V Activity POC ABG pH POC ABG pCO2 POC ABG pO2 ABG pO2 ABG HCO3 ABG Base Excess ABG Hemoglobin Oxyhemoglobin Sodium Potassium Chloride Carbon Dioxide BUN Creatinine Glucose POC Glucose 134 H 149 H Lactic Acid Calcium Ionized Calcium Phosphorus Magnesium Direct Bilirubin AST ALT Alkaline Phosphatase Lactate Dehydrogenase Troponin T C-Reactive Protein Total Protein Albumin Prealbumin Triglycerides Cholesterol LDL Cholesterol Direct HDL Cholesterol 25-OH Vitamin D Total PTH Intact Urine pH Urine WBC (Auto) Urine Creatinine Urine Total Protein Fluid Total Protein Vancomycin Trough Rheumatoid Factor Complement C4 Miscellaneous Test Crossmatch 12/12/16 12/12/16 12/12/16 17:38 23:01 Unknown WBC RBC Hgb Hct MCV MCH MCHC RDW Plt Count Lymph % (Auto) [place] % (Auto) Lymph # [place] # Baso # Seg Neutrophils % Seg Neuts % (Manual) Lymphocytes % (Manual) Monocytes % (Manual) Eosinophils % (Manual) Basophils % (Manual) Nucleated RBC % Seg Neutrophils # Seg Neutrophils # Man Lymphocytes # (Manual) Monocytes # (Manual) Eosinophils # (Manual) Basophils # (Manual) PT INR Fibrinogen dRVVT Confirm Interp Factor V Activity POC ABG pH POC ABG pCO2 POC ABG pO2 ABG pO2 ABG HCO3 ABG Base Excess ABG Hemoglobin Oxyhemoglobin Sodium Potassium Chloride Carbon Dioxide BUN 60 H Creatinine 1.3 H Glucose 126 H POC Glucose 127 H 144 H Lactic Acid Calcium Ionized Calcium Phosphorus Magnesium Direct Bilirubin AST ALT Alkaline Phosphatase Lactate Dehydrogenase Troponin T C-Reactive Protein Total Protein Albumin Prealbumin Triglycerides Cholesterol LDL Cholesterol Direct HDL Cholesterol 25-OH Vitamin D Total PTH Intact Urine pH Urine WBC (Auto) Urine Creatinine Urine Total Protein Fluid Total Protein Vancomycin Trough Rheumatoid Factor Complement C4 Miscellaneous Test Crossmatch 12/13/16 12/13/16 12/13/16 04:00 04:00 05:19 WBC 18.7 H RBC 2.89 L Hgb 8.3 L Hct 24.6 L MCV MCH MCHC RDW 17.5 H Plt Count Lymph % (Auto) [place] % (Auto) Lymph # [place] # 1.3 H Baso # Seg Neutrophils % 71.5 H Seg Neuts % (Manual) Lymphocytes % (Manual) Monocytes % (Manual) Eosinophils % (Manual) Basophils % (Manual) Nucleated RBC % Seg Neutrophils # 13.4 H Seg Neutrophils # Man Lymphocytes # (Manual) Monocytes # (Manual) Eosinophils # (Manual) Basophils # (Manual) PT INR Fibrinogen dRVVT Confirm Interp Factor V Activity POC ABG pH POC ABG pCO2 POC ABG pO2 ABG pO2 ABG HCO3 ABG Base Excess ABG Hemoglobin Oxyhemoglobin Sodium Potassium Chloride Carbon Dioxide BUN 73 H Creatinine 1.5 H Glucose 141 H POC Glucose 171 H Lactic Acid Calcium Ionized Calcium Phosphorus Magnesium Direct Bilirubin AST ALT Alkaline Phosphatase Lactate Dehydrogenase Troponin T C-Reactive Protein Total Protein Albumin Prealbumin Triglycerides Cholesterol LDL Cholesterol Direct HDL Cholesterol 25-OH Vitamin D Total PTH Intact Urine pH Urine WBC (Auto) Urine Creatinine Urine Total Protein Fluid Total Protein Vancomycin Trough Rheumatoid Factor Complement C4 Miscellaneous Test Crossmatch 12/13/16 12/13/16 12/14/16 12:28 16:48 00:01 WBC RBC Hgb Hct MCV MCH MCHC RDW Plt Count Lymph % (Auto) [place] % (Auto) Lymph # [place] # Baso # Seg Neutrophils % Seg Neuts % (Manual) Lymphocytes % (Manual) Monocytes % (Manual) Eosinophils % (Manual) Basophils % (Manual) Nucleated RBC % Seg Neutrophils # Seg Neutrophils # Man Lymphocytes # (Manual) Monocytes # (Manual) Eosinophils # (Manual) Basophils # (Manual) PT INR Fibrinogen dRVVT Confirm Interp Factor V Activity POC ABG pH POC ABG pCO2 POC ABG pO2 ABG pO2 ABG HCO3 ABG Base Excess ABG Hemoglobin Oxyhemoglobin Sodium Potassium Chloride Carbon Dioxide BUN Creatinine Glucose POC Glucose 206 H 173 H 139 H Lactic Acid Calcium Ionized Calcium Phosphorus Magnesium Direct Bilirubin AST ALT Alkaline Phosphatase Lactate Dehydrogenase Troponin T C-Reactive Protein Total Protein Albumin Prealbumin Triglycerides Cholesterol LDL Cholesterol Direct HDL Cholesterol 25-OH Vitamin D Total PTH Intact Urine pH Urine WBC (Auto) Urine Creatinine Urine Total Protein Fluid Total Protein Vancomycin Trough Rheumatoid Factor Complement C4 Miscellaneous Test Crossmatch 12/14/16 12/14/16 12/14/16 05:16 06:10 11:17 WBC RBC Hgb Hct MCV MCH MCHC RDW Plt Count Lymph % (Auto) [place] % (Auto) Lymph # [place] # Baso # Seg Neutrophils % Seg Neuts % (Manual) Lymphocytes % (Manual) Monocytes % (Manual) Eosinophils % (Manual) Basophils % (Manual) Nucleated RBC % Seg Neutrophils # Seg Neutrophils # Man Lymphocytes # (Manual) Monocytes # (Manual) Eosinophils # (Manual) Basophils # (Manual) PT INR Fibrinogen dRVVT Confirm Interp Factor V Activity POC ABG pH POC ABG pCO2 POC ABG pO2 ABG pO2 ABG HCO3 ABG Base Excess ABG Hemoglobin Oxyhemoglobin Sodium Potassium Chloride Carbon Dioxide BUN 57 H Creatinine 1.4 H Glucose 135 H POC Glucose 158 H 137 H Lactic Acid Calcium Ionized Calcium Phosphorus Magnesium Direct Bilirubin AST ALT Alkaline Phosphatase Lactate Dehydrogenase Troponin T C-Reactive Protein Total Protein Albumin Prealbumin Triglycerides Cholesterol LDL Cholesterol Direct HDL Cholesterol 25-OH Vitamin D Total PTH Intact Urine pH Urine WBC (Auto) Urine Creatinine Urine Total Protein Fluid Total Protein Vancomycin Trough Rheumatoid Factor Complement C4 Miscellaneous Test Crossmatch 12/14/16 12/14/16 12/15/16 17:52 23:27 04:00 WBC RBC Hgb Hct MCV MCH MCHC RDW Plt Count Lymph % (Auto) [place] % (Auto) Lymph # [place] # Baso # Seg Neutrophils % Seg Neuts % (Manual) Lymphocytes % (Manual) Monocytes % (Manual) Eosinophils % (Manual) Basophils % (Manual) Nucleated RBC % Seg Neutrophils # Seg Neutrophils # Man Lymphocytes # (Manual) Monocytes # (Manual) Eosinophils # (Manual) Basophils # (Manual) PT INR Fibrinogen dRVVT Confirm Interp Factor V Activity POC ABG pH POC ABG pCO2 POC ABG pO2 ABG pO2 ABG HCO3 ABG Base Excess ABG Hemoglobin Oxyhemoglobin Sodium Potassium Chloride 97.9 L Carbon Dioxide BUN 75 H Creatinine 1.6 H Glucose 122 H POC Glucose 149 H 163 H Lactic Acid Calcium Ionized Calcium Phosphorus 5.20 H Magnesium Direct Bilirubin AST ALT Alkaline Phosphatase Lactate Dehydrogenase Troponin T C-Reactive Protein Total Protein Albumin Prealbumin Triglycerides Cholesterol LDL Cholesterol Direct HDL Cholesterol 25-OH Vitamin D Total PTH Intact Urine pH Urine WBC (Auto) Urine Creatinine Urine Total Protein Fluid Total Protein Vancomycin Trough Rheumatoid Factor Complement C4 Miscellaneous Test Crossmatch 12/15/16 12/15/16 12/15/16 05:50 11:24 17:01 WBC RBC Hgb Hct MCV MCH MCHC RDW Plt Count Lymph % (Auto) [place] % (Auto) Lymph # [place] # Baso # Seg Neutrophils % Seg Neuts % (Manual) Lymphocytes % (Manual) Monocytes % (Manual) Eosinophils % (Manual) Basophils % (Manual) Nucleated RBC % Seg Neutrophils # Seg Neutrophils # Man Lymphocytes # (Manual) Monocytes # (Manual) Eosinophils # (Manual) Basophils # (Manual) PT INR Fibrinogen dRVVT Confirm Interp Factor V Activity POC ABG pH POC ABG pCO2 POC ABG pO2 ABG pO2 ABG HCO3 ABG Base Excess ABG Hemoglobin Oxyhemoglobin Sodium Potassium Chloride Carbon Dioxide BUN Creatinine Glucose POC Glucose 150 H 146 H 167 H Lactic Acid Calcium Ionized Calcium Phosphorus Magnesium Direct Bilirubin AST ALT Alkaline Phosphatase Lactate Dehydrogenase Troponin T C-Reactive Protein Total Protein Albumin Prealbumin Triglycerides Cholesterol LDL Cholesterol Direct HDL Cholesterol 25-OH Vitamin D Total PTH Intact Urine pH Urine WBC (Auto) Urine Creatinine Urine Total Protein Fluid Total Protein Vancomycin Trough Rheumatoid Factor Complement C4 Miscellaneous Test Crossmatch 12/15/16 12/16/16 12/16/16 23:34 05:25 11:24 WBC RBC Hgb Hct MCV MCH MCHC RDW Plt Count Lymph % (Auto) [place] % (Auto) Lymph # [place] # Baso # Seg Neutrophils % Seg Neuts % (Manual) Lymphocytes % (Manual) Monocytes % (Manual) Eosinophils % (Manual) Basophils % (Manual) Nucleated RBC % Seg Neutrophils # Seg Neutrophils # Man Lymphocytes # (Manual) Monocytes # (Manual) Eosinophils # (Manual) Basophils # (Manual) PT INR Fibrinogen dRVVT Confirm Interp Factor V Activity POC ABG pH POC ABG pCO2 POC ABG pO2 ABG pO2 ABG HCO3 ABG Base Excess ABG Hemoglobin Oxyhemoglobin Sodium Potassium Chloride Carbon Dioxide BUN Creatinine Glucose POC Glucose 127 H 139 H 165 H Lactic Acid Calcium Ionized Calcium Phosphorus Magnesium Direct Bilirubin AST ALT Alkaline Phosphatase Lactate Dehydrogenase Troponin T C-Reactive Protein Total Protein Albumin Prealbumin Triglycerides Cholesterol LDL Cholesterol Direct HDL Cholesterol 25-OH Vitamin D Total PTH Intact Urine pH Urine WBC (Auto) Urine Creatinine Urine Total Protein Fluid Total Protein Vancomycin Trough Rheumatoid Factor Complement C4 Miscellaneous Test Crossmatch 12/16/16 12/16/1617 15:30 16:25 17:31 WBC 17.8 H RBC 2.38 L Hgb 6.4 L Hct 20.3 L MCV MCH 27 L MCHC RDW 17.4 H Plt Count Lymph % (Auto) [place] % (Auto) Lymph # [place] # Baso # Seg Neutrophils % Seg Neuts % (Manual) Lymphocytes % (Manual) Monocytes % (Manual) 10.0 H Eosinophils % (Manual) Basophils % (Manual) Nucleated RBC % Seg Neutrophils # Seg Neutrophils # Man 8.5 H Lymphocytes # (Manual) Monocytes # (Manual) 1.8 H Eosinophils # (Manual) Basophils # (Manual) PT INR Fibrinogen dRVVT Confirm Interp Factor V Activity POC ABG pH POC ABG pCO2 POC ABG pO2 ABG pO2 ABG HCO3 ABG Base Excess ABG Hemoglobin Oxyhemoglobin Sodium Potassium Chloride Carbon Dioxide BUN Creatinine Glucose POC Glucose 176 H Lactic Acid Calcium Ionized Calcium Phosphorus Magnesium Direct Bilirubin AST ALT Alkaline Phosphatase Lactate Dehydrogenase Troponin T C-Reactive Protein Total Protein Albumin Prealbumin Triglycerides Cholesterol LDL Cholesterol Direct HDL Cholesterol 25-OH Vitamin D Total PTH Intact Urine pH Urine WBC (Auto) Urine Creatinine Urine Total Protein Fluid Total Protein Vancomycin Trough Rheumatoid Factor Complement C4 Miscellaneous Test Crossmatch See Detail 12/17/16 12/17/16 12/17/16 00:14 04:00 05:00 WBC 20.0 H RBC 2.99 L Hgb 8.5 L Hct 25.7 L MCV MCH MCHC RDW 17.2 H Plt Count Lymph % (Auto) [place] % (Auto) Lymph # [place] # Baso # Seg Neutrophils % Seg Neuts % (Manual) Lymphocytes % (Manual) Monocytes % (Manual) Eosinophils % (Manual) Basophils % (Manual) Nucleated RBC % Seg Neutrophils # Seg Neutrophils # Man Lymphocytes # (Manual) Monocytes # (Manual) Eosinophils # (Manual) Basophils # (Manual) PT INR Fibrinogen dRVVT Confirm Interp Factor V Activity POC ABG pH POC ABG pCO2 POC ABG pO2 ABG pO2 ABG HCO3 ABG Base Excess ABG Hemoglobin Oxyhemoglobin Sodium Potassium Chloride 97.7 L Carbon Dioxide BUN 73 H Creatinine 1.7 H Glucose 136 H POC Glucose 148 H Lactic Acid Calcium Ionized Calcium Phosphorus 2.20 L Magnesium 2.70 H Direct Bilirubin AST ALT Alkaline Phosphatase Lactate Dehydrogenase Troponin T C-Reactive Protein Total Protein Albumin Prealbumin Triglycerides Cholesterol LDL Cholesterol Direct HDL Cholesterol 25-OH Vitamin D Total PTH Intact Urine pH Urine WBC (Auto) Urine Creatinine Urine Total Protein Fluid Total Protein Vancomycin Trough Rheumatoid Factor Complement C4 Miscellaneous Test Crossmatch 12/17/16 12/17/16 12/17/16 05:39 12:50 16:32 WBC RBC Hgb Hct MCV MCH MCHC RDW Plt Count Lymph % (Auto) [place] % (Auto) Lymph # [place] # Baso # Seg Neutrophils % Seg Neuts % (Manual) Lymphocytes % (Manual) Monocytes % (Manual) Eosinophils % (Manual) Basophils % (Manual) Nucleated RBC % Seg Neutrophils # Seg Neutrophils # Man Lymphocytes # (Manual) Monocytes # (Manual) Eosinophils # (Manual) Basophils # (Manual) PT INR Fibrinogen dRVVT Confirm Interp Factor V Activity POC ABG pH POC ABG pCO2 POC ABG pO2 ABG pO2 ABG HCO3 ABG Base Excess ABG Hemoglobin Oxyhemoglobin Sodium Potassium Chloride Carbon Dioxide BUN Creatinine Glucose POC Glucose 162 H 146 H 169 H Lactic Acid Calcium Ionized Calcium Phosphorus Magnesium Direct Bilirubin AST ALT Alkaline Phosphatase Lactate Dehydrogenase Troponin T C-Reactive Protein Total Protein Albumin Prealbumin Triglycerides Cholesterol LDL Cholesterol Direct HDL Cholesterol 25-OH Vitamin D Total PTH Intact Urine pH Urine WBC (Auto) Urine Creatinine Urine Total Protein Fluid Total Protein Vancomycin Trough Rheumatoid Factor Complement C4 Miscellaneous Test Crossmatch 12/17/16 12/18/16 12/18/16 23:57 05:00 05:32 WBC RBC Hgb Hct MCV MCH MCHC RDW Plt Count Lymph % (Auto) [place] % (Auto) Lymph # [place] # Baso # Seg Neutrophils % Seg Neuts % (Manual) Lymphocytes % (Manual) Monocytes % (Manual) Eosinophils % (Manual) Basophils % (Manual) Nucleated RBC % Seg Neutrophils # Seg Neutrophils # Man Lymphocytes # (Manual) Monocytes # (Manual) Eosinophils # (Manual) Basophils # (Manual) PT INR Fibrinogen dRVVT Confirm Interp Factor V Activity POC ABG pH POC ABG pCO2 POC ABG pO2 ABG pO2 ABG HCO3 ABG Base Excess ABG Hemoglobin Oxyhemoglobin Sodium Potassium Chloride 97.0 L Carbon Dioxide BUN 63 H Creatinine 1.4 H Glucose 174 H POC Glucose 145 H 201 H Lactic Acid Calcium Ionized Calcium Phosphorus 1.70 L D Magnesium Direct Bilirubin AST ALT Alkaline Phosphatase 257 H Lactate Dehydrogenase Troponin T C-Reactive Protein Total Protein 5.9 L Albumin 1.8 L Prealbumin Triglycerides Cholesterol LDL Cholesterol Direct HDL Cholesterol 25-OH Vitamin D Total PTH Intact Urine pH Urine WBC (Auto) Urine Creatinine Urine Total Protein Fluid Total Protein Vancomycin Trough Rheumatoid Factor Complement C4 Miscellaneous Test Crossmatch 12/18/16 12/18/16 12/18/16 11:43 16:52 23:52 WBC RBC Hgb Hct MCV MCH MCHC RDW Plt Count Lymph % (Auto) [place] % (Auto) Lymph # [place] # Baso # Seg Neutrophils % Seg Neuts % (Manual) Lymphocytes % (Manual) Monocytes % (Manual) Eosinophils % (Manual) Basophils % (Manual) Nucleated RBC % Seg Neutrophils # Seg Neutrophils # Man Lymphocytes # (Manual) Monocytes # (Manual) Eosinophils # (Manual) Basophils # (Manual) PT INR Fibrinogen dRVVT Confirm Interp Factor V Activity POC ABG pH POC ABG pCO2 POC ABG pO2 ABG pO2 ABG HCO3 ABG Base Excess ABG Hemoglobin Oxyhemoglobin Sodium Potassium Chloride Carbon Dioxide BUN Creatinine Glucose POC Glucose 177 H 110 H 162 H Lactic Acid Calcium Ionized Calcium Phosphorus Magnesium Direct Bilirubin AST ALT Alkaline Phosphatase Lactate Dehydrogenase Troponin T C-Reactive Protein Total Protein Albumin Prealbumin Triglycerides Cholesterol LDL Cholesterol Direct HDL Cholesterol 25-OH Vitamin D Total PTH Intact Urine pH Urine WBC (Auto) Urine Creatinine Urine Total Protein Fluid Total Protein Vancomycin Trough Rheumatoid Factor Complement C4 Miscellaneous Test Crossmatch 12/19/16 12/19/16 12/19/16 05:02 05:24 09:30 WBC 20.1 H RBC 2.73 L Hgb 7.6 L Hct 23.6 L MCV MCH MCHC RDW 17.6 H Plt Count Lymph % (Auto) [place] % (Auto) Lymph # [place] # Baso # Seg Neutrophils % Seg Neuts % (Manual) Lymphocytes % (Manual) 13.0 L Monocytes % (Manual) Eosinophils % (Manual) Basophils % (Manual) Nucleated RBC % 1.0 H Seg Neutrophils # Seg Neutrophils # Man 12.9 H Lymphocytes # (Manual) Monocytes # (Manual) 1.4 H Eosinophils # (Manual) Basophils # (Manual) 0.2 H PT INR Fibrinogen dRVVT Confirm Interp Factor V Activity POC ABG pH POC ABG pCO2 POC ABG pO2 ABG pO2 ABG HCO3 ABG Base Excess ABG Hemoglobin Oxyhemoglobin Sodium Potassium Chloride 97.8 L Carbon Dioxide BUN 84 H Creatinine 1.6 H Glucose 133 H POC Glucose 134 H Lactic Acid Calcium Ionized Calcium Phosphorus Magnesium Direct Bilirubin AST ALT Alkaline Phosphatase Lactate Dehydrogenase Troponin T C-Reactive Protein Total Protein Albumin Prealbumin Triglycerides Cholesterol LDL Cholesterol Direct HDL Cholesterol 25-OH Vitamin D Total PTH Intact Urine pH Urine WBC (Auto) Urine Creatinine Urine Total Protein Fluid Total Protein Vancomycin Trough Rheumatoid Factor Complement C4 Miscellaneous Test Crossmatch 12/19/16 12/19/16 12/19/16 09:36 11:12 18:29 WBC RBC Hgb Hct MCV MCH MCHC RDW Plt Count Lymph % (Auto) [place] % (Auto) Lymph # [place] # Baso # Seg Neutrophils % Seg Neuts % (Manual) Lymphocytes % (Manual) Monocytes % (Manual) Eosinophils % (Manual) Basophils % (Manual) Nucleated RBC % Seg Neutrophils # Seg Neutrophils # Man Lymphocytes # (Manual) Monocytes # (Manual) Eosinophils # (Manual) Basophils # (Manual) PT INR Fibrinogen dRVVT Confirm Interp Factor V Activity POC ABG pH 7.503 H POC ABG pCO2 30.1 L POC ABG pO2 ABG pO2 ABG HCO3 ABG Base Excess ABG Hemoglobin Oxyhemoglobin Sodium Potassium Chloride Carbon Dioxide BUN Creatinine Glucose POC Glucose 138 H 156 H Lactic Acid Calcium Ionized Calcium Phosphorus Magnesium Direct Bilirubin AST ALT Alkaline Phosphatase Lactate Dehydrogenase Troponin T C-Reactive Protein Total Protein Albumin Prealbumin Triglycerides Cholesterol LDL Cholesterol Direct HDL Cholesterol 25-OH Vitamin D Total PTH Intact Urine pH Urine WBC (Auto) Urine Creatinine Urine Total Protein Fluid Total Protein Vancomycin Trough Rheumatoid Factor Complement C4 Miscellaneous Test Crossmatch 12/20/16 12/20/16 12/20/16 00:03 06:17 07:07 WBC RBC Hgb Hct MCV MCH MCHC RDW Plt Count Lymph % (Auto) [place] % (Auto) Lymph # [place] # Baso # Seg Neutrophils % Seg Neuts % (Manual) Lymphocytes % (Manual) Monocytes % (Manual) Eosinophils % (Manual) Basophils % (Manual) Nucleated RBC % Seg Neutrophils # Seg Neutrophils # Man Lymphocytes # (Manual) Monocytes # (Manual) Eosinophils # (Manual) Basophils # (Manual) PT INR Fibrinogen dRVVT Confirm Interp Factor V Activity POC ABG pH POC ABG pCO2 POC ABG pO2 ABG pO2 ABG HCO3 ABG Base Excess ABG Hemoglobin Oxyhemoglobin Sodium Potassium Chloride 97.1 L Carbon Dioxide 20 L BUN 97 H Creatinine 1.8 H Glucose 153 H POC Glucose 152 H 175 H Lactic Acid Calcium Ionized Calcium Phosphorus Magnesium Direct Bilirubin AST ALT Alkaline Phosphatase Lactate Dehydrogenase Troponin T C-Reactive Protein Total Protein Albumin Prealbumin Triglycerides Cholesterol LDL Cholesterol Direct HDL Cholesterol 25-OH Vitamin D Total PTH Intact Urine pH Urine WBC (Auto) Urine Creatinine Urine Total Protein Fluid Total Protein Vancomycin Trough Rheumatoid Factor Complement C4 Miscellaneous Test Crossmatch 12/20/16 12/20/16 12/20/16 12:00 17:42 23:53 WBC RBC Hgb Hct MCV MCH MCHC RDW Plt Count Lymph % (Auto) [place] % (Auto) Lymph # [place] # Baso # Seg Neutrophils % Seg Neuts % (Manual) Lymphocytes % (Manual) Monocytes % (Manual) Eosinophils % (Manual) Basophils % (Manual) Nucleated RBC % Seg Neutrophils # Seg Neutrophils # Man Lymphocytes # (Manual) Monocytes # (Manual) Eosinophils # (Manual) Basophils # (Manual) PT INR Fibrinogen dRVVT Confirm Interp Factor V Activity POC ABG pH POC ABG pCO2 POC ABG pO2 ABG pO2 ABG HCO3 ABG Base Excess ABG Hemoglobin Oxyhemoglobin Sodium Potassium Chloride Carbon Dioxide BUN Creatinine Glucose POC Glucose 141 H 156 H 132 H Lactic Acid Calcium Ionized Calcium Phosphorus Magnesium Direct Bilirubin AST ALT Alkaline Phosphatase Lactate Dehydrogenase Troponin T C-Reactive Protein Total Protein Albumin Prealbumin Triglycerides Cholesterol LDL Cholesterol Direct HDL Cholesterol 25-OH Vitamin D Total PTH Intact Urine pH Urine WBC (Auto) Urine Creatinine Urine Total Protein Fluid Total Protein Vancomycin Trough Rheumatoid Factor Complement C4 Miscellaneous Test Crossmatch 12/21/16 12/21/16 12/21/16 05:49 08:50 12:19 WBC RBC Hgb Hct MCV MCH MCHC RDW Plt Count Lymph % (Auto) [place] % (Auto) Lymph # [place] # Baso # Seg Neutrophils % Seg Neuts % (Manual) Lymphocytes % (Manual) Monocytes % (Manual) Eosinophils % (Manual) Basophils % (Manual) Nucleated RBC % Seg Neutrophils # Seg Neutrophils # Man Lymphocytes # (Manual) Monocytes # (Manual) Eosinophils # (Manual) Basophils # (Manual) PT INR Fibrinogen dRVVT Confirm Interp Factor V Activity POC ABG pH POC ABG pCO2 POC ABG pO2 ABG pO2 ABG HCO3 ABG Base Excess ABG Hemoglobin Oxyhemoglobin Sodium Potassium 5.2 H D Chloride Carbon Dioxide BUN 63 H Creatinine Glucose 122 H POC Glucose 132 H 136 H Lactic Acid Calcium 8.3 L Ionized Calcium Phosphorus Magnesium Direct Bilirubin AST ALT Alkaline Phosphatase Lactate Dehydrogenase Troponin T C-Reactive Protein Total Protein Albumin Prealbumin Triglycerides Cholesterol LDL Cholesterol Direct HDL Cholesterol 25-OH Vitamin D Total PTH Intact Urine pH Urine WBC (Auto) Urine Creatinine Urine Total Protein Fluid Total Protein Vancomycin Trough Rheumatoid Factor Complement C4 Miscellaneous Test Crossmatch 12/21/16 12/21/16 12/22/16 17:22 23:58 05:49 WBC RBC Hgb Hct MCV MCH MCHC RDW Plt Count Lymph % (Auto) [place] % (Auto) Lymph # [place] # Baso # Seg Neutrophils % Seg Neuts % (Manual) Lymphocytes % (Manual) Monocytes % (Manual) Eosinophils % (Manual) Basophils % (Manual) Nucleated RBC % Seg Neutrophils # Seg Neutrophils # Man Lymphocytes # (Manual) Monocytes # (Manual) Eosinophils # (Manual) Basophils # (Manual) PT INR Fibrinogen dRVVT Confirm Interp Factor V Activity POC ABG pH POC ABG pCO2 POC ABG pO2 ABG pO2 ABG HCO3 ABG Base Excess ABG Hemoglobin Oxyhemoglobin Sodium Potassium Chloride Carbon Dioxide BUN Creatinine Glucose POC Glucose 135 H 149 H 140 H Lactic Acid Calcium Ionized Calcium Phosphorus Magnesium Direct Bilirubin AST ALT Alkaline Phosphatase Lactate Dehydrogenase Troponin T C-Reactive Protein Total Protein Albumin Prealbumin Triglycerides Cholesterol LDL Cholesterol Direct HDL Cholesterol 25-OH Vitamin D Total PTH Intact Urine pH Urine WBC (Auto) Urine Creatinine Urine Total Protein Fluid Total Protein Vancomycin Trough Rheumatoid Factor Complement C4 Miscellaneous Test Crossmatch 12/22/16 12/22/16 12/22/16 06:10 11:17 17:31 WBC RBC Hgb Hct MCV MCH MCHC RDW Plt Count Lymph % (Auto) [place] % (Auto) Lymph # [place] # Baso # Seg Neutrophils % Seg Neuts % (Manual) Lymphocytes % (Manual) Monocytes % (Manual) Eosinophils % (Manual) Basophils % (Manual) Nucleated RBC % Seg Neutrophils # Seg Neutrophils # Man Lymphocytes # (Manual) Monocytes # (Manual) Eosinophils # (Manual) Basophils # (Manual) PT INR Fibrinogen dRVVT Confirm Interp Factor V Activity POC ABG pH POC ABG pCO2 POC ABG pO2 ABG pO2 ABG HCO3 ABG Base Excess ABG Hemoglobin Oxyhemoglobin Sodium Potassium Chloride Carbon Dioxide BUN 76 H Creatinine 1.5 H Glucose 241 H POC Glucose 193 H 148 H Lactic Acid Calcium Ionized Calcium Phosphorus Magnesium Direct Bilirubin AST ALT Alkaline Phosphatase Lactate Dehydrogenase Troponin T C-Reactive Protein Total Protein Albumin Prealbumin Triglycerides Cholesterol LDL Cholesterol Direct HDL Cholesterol 25-OH Vitamin D Total PTH Intact Urine pH Urine WBC (Auto) Urine Creatinine Urine Total Protein Fluid Total Protein Vancomycin Trough Rheumatoid Factor Complement C4 Miscellaneous Test Crossmatch 12/22/16 12/23/16 12/23/16 23:58 05:00 05:26 WBC RBC Hgb Hct MCV MCH MCHC RDW Plt Count Lymph % (Auto) [place] % (Auto) Lymph # [place] # Baso # Seg Neutrophils % Seg Neuts % (Manual) Lymphocytes % (Manual) Monocytes % (Manual) Eosinophils % (Manual) Basophils % (Manual) Nucleated RBC % Seg Neutrophils # Seg Neutrophils # Man Lymphocytes # (Manual) Monocytes # (Manual) Eosinophils # (Manual) Basophils # (Manual) PT INR Fibrinogen dRVVT Confirm Interp Factor V Activity POC ABG pH POC ABG pCO2 POC ABG pO2 ABG pO2 ABG HCO3 ABG Base Excess ABG Hemoglobin Oxyhemoglobin Sodium Potassium Chloride Carbon Dioxide BUN 49 H Creatinine Glucose 143 H POC Glucose 165 H 154 H Lactic Acid Calcium 8.2 L Ionized Calcium Phosphorus Magnesium 1.60 L Direct Bilirubin AST ALT Alkaline Phosphatase Lactate Dehydrogenase Troponin T C-Reactive Protein Total Protein Albumin Prealbumin Triglycerides Cholesterol LDL Cholesterol Direct HDL Cholesterol 25-OH Vitamin D Total PTH Intact Urine pH Urine WBC (Auto) Urine Creatinine Urine Total Protein Fluid Total Protein Vancomycin Trough Rheumatoid Factor Complement C4 Miscellaneous Test Crossmatch 12/23/16 12/23/16 12/24/16 12:35 17:01 00:01 WBC RBC Hgb Hct MCV MCH MCHC RDW Plt Count Lymph % (Auto) [place] % (Auto) Lymph # [place] # Baso # Seg Neutrophils % Seg Neuts % (Manual) Lymphocytes % (Manual) Monocytes % (Manual) Eosinophils % (Manual) Basophils % (Manual) Nucleated RBC % Seg Neutrophils # Seg Neutrophils # Man Lymphocytes # (Manual) Monocytes # (Manual) Eosinophils # (Manual) Basophils # (Manual) PT INR Fibrinogen dRVVT Confirm Interp Factor V Activity POC ABG pH POC ABG pCO2 POC ABG pO2 ABG pO2 ABG HCO3 ABG Base Excess ABG Hemoglobin Oxyhemoglobin Sodium Potassium Chloride Carbon Dioxide BUN Creatinine Glucose POC Glucose 164 H 149 H 135 H Lactic Acid Calcium Ionized Calcium Phosphorus Magnesium Direct Bilirubin AST ALT Alkaline Phosphatase Lactate Dehydrogenase Troponin T C-Reactive Protein Total Protein Albumin Prealbumin Triglycerides Cholesterol LDL Cholesterol Direct HDL Cholesterol 25-OH Vitamin D Total PTH Intact Urine pH Urine WBC (Auto) Urine Creatinine Urine Total Protein Fluid Total Protein Vancomycin Trough Rheumatoid Factor Complement C4 Miscellaneous Test Crossmatch 12/24/16 12/24/16 12/24/16 05:41 07:01 11:38 WBC RBC Hgb Hct MCV MCH MCHC RDW Plt Count Lymph % (Auto) [place] % (Auto) Lymph # [place] # Baso # Seg Neutrophils % Seg Neuts % (Manual) Lymphocytes % (Manual) Monocytes % (Manual) Eosinophils % (Manual) Basophils % (Manual) Nucleated RBC % Seg Neutrophils # Seg Neutrophils # Man Lymphocytes # (Manual) Monocytes # (Manual) Eosinophils # (Manual) Basophils # (Manual) PT INR Fibrinogen dRVVT Confirm Interp Factor V Activity POC ABG pH POC ABG pCO2 POC ABG pO2 ABG pO2 ABG HCO3 ABG Base Excess ABG Hemoglobin Oxyhemoglobin Sodium Potassium Chloride Carbon Dioxide BUN 72 H Creatinine 1.3 H Glucose 130 H POC Glucose 132 H 156 H Lactic Acid Calcium 8.2 L Ionized Calcium Phosphorus Magnesium Direct Bilirubin AST ALT Alkaline Phosphatase Lactate Dehydrogenase Troponin T C-Reactive Protein Total Protein Albumin Prealbumin Triglycerides Cholesterol LDL Cholesterol Direct HDL Cholesterol 25-OH Vitamin D Total PTH Intact Urine pH Urine WBC (Auto) Urine Creatinine Urine Total Protein Fluid Total Protein Vancomycin Trough Rheumatoid Factor Complement C4 Miscellaneous Test Crossmatch 12/24/16 12/25/16 12/25/16 17:53 00:23 05:45 WBC RBC Hgb Hct MCV MCH MCHC RDW Plt Count Lymph % (Auto) [place] % (Auto) Lymph # [place] # Baso # Seg Neutrophils % Seg Neuts % (Manual) Lymphocytes % (Manual) Monocytes % (Manual) Eosinophils % (Manual) Basophils % (Manual) Nucleated RBC % Seg Neutrophils # Seg Neutrophils # Man Lymphocytes # (Manual) Monocytes # (Manual) Eosinophils # (Manual) Basophils # (Manual) PT INR Fibrinogen dRVVT Confirm Interp Factor V Activity POC ABG pH POC ABG pCO2 POC ABG pO2 ABG pO2 ABG HCO3 ABG Base Excess ABG Hemoglobin Oxyhemoglobin Sodium 146 H Potassium Chloride Carbon Dioxide BUN 51 H Creatinine Glucose 109 H POC Glucose 169 H 117 H Lactic Acid Calcium Ionized Calcium Phosphorus Magnesium Direct Bilirubin AST ALT Alkaline Phosphatase Lactate Dehydrogenase Troponin T C-Reactive Protein Total Protein Albumin Prealbumin Triglycerides Cholesterol LDL Cholesterol Direct HDL Cholesterol 25-OH Vitamin D Total PTH Intact Urine pH Urine WBC (Auto) Urine Creatinine Urine Total Protein Fluid Total Protein Vancomycin Trough Rheumatoid Factor Complement C4 Miscellaneous Test Crossmatch 12/25/16 12/25/16 12/25/16 06:43 11:29 17:14 WBC RBC Hgb Hct MCV MCH MCHC RDW Plt Count Lymph % (Auto) [place] % (Auto) Lymph # [place] # Baso # Seg Neutrophils % Seg Neuts % (Manual) Lymphocytes % (Manual) Monocytes % (Manual) Eosinophils % (Manual) Basophils % (Manual) Nucleated RBC % Seg Neutrophils # Seg Neutrophils # Man Lymphocytes # (Manual) Monocytes # (Manual) Eosinophils # (Manual) Basophils # (Manual) PT INR Fibrinogen dRVVT Confirm Interp Factor V Activity POC ABG pH POC ABG pCO2 POC ABG pO2 ABG pO2 ABG HCO3 ABG Base Excess ABG Hemoglobin Oxyhemoglobin Sodium Potassium Chloride Carbon Dioxide BUN Creatinine Glucose POC Glucose 117 H 128 H 120 H Lactic Acid Calcium Ionized Calcium Phosphorus Magnesium Direct Bilirubin AST ALT Alkaline Phosphatase Lactate Dehydrogenase Troponin T C-Reactive Protein Total Protein Albumin Prealbumin Triglycerides Cholesterol LDL Cholesterol Direct HDL Cholesterol 25-OH Vitamin D Total PTH Intact Urine pH Urine WBC (Auto) Urine Creatinine Urine Total Protein Fluid Total Protein Vancomycin Trough Rheumatoid Factor Complement C4 Miscellaneous Test Crossmatch 12/25/16 12/26/16 12/26/16 23:54 05:40 05:50 WBC 16.2 H RBC 2.32 L Hgb 6.2 L Hct 20.1 L MCV MCH 27 L MCHC RDW 18.6 H Plt Count Lymph % (Auto) [place] % (Auto) Lymph # [place] # Baso # Seg Neutrophils % Seg Neuts % (Manual) Lymphocytes % (Manual) Monocytes % (Manual) Eosinophils % (Manual) Basophils % (Manual) Nucleated RBC % Seg Neutrophils # Seg Neutrophils # Man Lymphocytes # (Manual) Monocytes # (Manual) Eosinophils # (Manual) Basophils # (Manual) PT INR Fibrinogen dRVVT Confirm Interp Factor V Activity POC ABG pH POC ABG pCO2 POC ABG pO2 ABG pO2 ABG HCO3 ABG Base Excess ABG Hemoglobin Oxyhemoglobin Sodium Potassium Chloride Carbon Dioxide BUN Creatinine Glucose POC Glucose 126 H 132 H Lactic Acid Calcium Ionized Calcium Phosphorus Magnesium Direct Bilirubin AST ALT Alkaline Phosphatase Lactate Dehydrogenase Troponin T C-Reactive Protein Total Protein Albumin Prealbumin Triglycerides Cholesterol LDL Cholesterol Direct HDL Cholesterol 25-OH Vitamin D Total PTH Intact Urine pH Urine WBC (Auto) Urine Creatinine Urine Total Protein Fluid Total Protein Vancomycin Trough Rheumatoid Factor Complement C4 Miscellaneous Test Crossmatch 12/26/16 12/26/16 12/26/16 05:50 12:17 12:33 WBC RBC Hgb Hct MCV MCH MCHC RDW Plt Count Lymph % (Auto) [place] % (Auto) Lymph # [place] # Baso # Seg Neutrophils % Seg Neuts % (Manual) Lymphocytes % (Manual) Monocytes % (Manual) Eosinophils % (Manual) Basophils % (Manual) Nucleated RBC % Seg Neutrophils # Seg Neutrophils # Man Lymphocytes # (Manual) Monocytes # (Manual) Eosinophils # (Manual) Basophils # (Manual) PT INR Fibrinogen dRVVT Confirm Interp Factor V Activity POC ABG pH POC ABG pCO2 POC ABG pO2 ABG pO2 ABG HCO3 ABG Base Excess ABG Hemoglobin Oxyhemoglobin Sodium Potassium Chloride Carbon Dioxide BUN 73 H Creatinine 1.3 H Glucose 113 H POC Glucose 117 H Lactic Acid Calcium Ionized Calcium Phosphorus Magnesium Direct Bilirubin AST ALT Alkaline Phosphatase Lactate Dehydrogenase Troponin T C-Reactive Protein Total Protein Albumin Prealbumin Triglycerides Cholesterol LDL Cholesterol Direct HDL Cholesterol 25-OH Vitamin D Total PTH Intact Urine pH Urine WBC (Auto) Urine Creatinine Urine Total Protein Fluid Total Protein Vancomycin Trough Rheumatoid Factor Complement C4 Miscellaneous Test Crossmatch See Detail 12/26/16 12/26/16 12/27/16 20:00 23:21 05:00 WBC RBC Hgb 8.4 L Hct 26.3 L D MCV MCH MCHC RDW Plt Count Lymph % (Auto) [place] % (Auto) Lymph # [place] # Baso # Seg Neutrophils % Seg Neuts % (Manual) Lymphocytes % (Manual) Monocytes % (Manual) Eosinophils % (Manual) Basophils % (Manual) Nucleated RBC % Seg Neutrophils # Seg Neutrophils # Man Lymphocytes # (Manual) Monocytes # (Manual) Eosinophils # (Manual) Basophils # (Manual) PT INR Fibrinogen dRVVT Confirm Interp Factor V Activity POC ABG pH POC ABG pCO2 POC ABG pO2 ABG pO2 ABG HCO3 ABG Base Excess ABG Hemoglobin Oxyhemoglobin Sodium Potassium Chloride Carbon Dioxide BUN 85 H Creatinine 1.6 H Glucose 118 H POC Glucose 124 H Lactic Acid Calcium Ionized Calcium Phosphorus 4.80 H Magnesium Direct Bilirubin AST ALT Alkaline Phosphatase Lactate Dehydrogenase Troponin T C-Reactive Protein Total Protein Albumin Prealbumin Triglycerides Cholesterol LDL Cholesterol Direct HDL Cholesterol 25-OH Vitamin D Total PTH Intact Urine pH Urine WBC (Auto) Urine Creatinine Urine Total Protein Fluid Total Protein Vancomycin Trough Rheumatoid Factor Complement C4 Miscellaneous Test Crossmatch 12/27/16 12/27/16 12/27/16 05:00 05:35 12:24 WBC RBC Hgb 7.6 L Hct 22.8 L MCV MCH MCHC RDW Plt Count Lymph % (Auto) [place] % (Auto) Lymph # [place] # Baso # Seg Neutrophils % Seg Neuts % (Manual) Lymphocytes % (Manual) Monocytes % (Manual) Eosinophils % (Manual) Basophils % (Manual) Nucleated RBC % Seg Neutrophils # Seg Neutrophils # Man Lymphocytes # (Manual) Monocytes # (Manual) Eosinophils # (Manual) Basophils # (Manual) PT INR Fibrinogen dRVVT Confirm Interp Factor V Activity POC ABG pH POC ABG pCO2 POC ABG pO2 ABG pO2 ABG HCO3 ABG Base Excess ABG Hemoglobin Oxyhemoglobin Sodium Potassium Chloride Carbon Dioxide BUN Creatinine Glucose POC Glucose 115 H 131 H Lactic Acid Calcium Ionized Calcium Phosphorus Magnesium Direct Bilirubin AST ALT Alkaline Phosphatase Lactate Dehydrogenase Troponin T C-Reactive Protein Total Protein Albumin Prealbumin Triglycerides Cholesterol LDL Cholesterol Direct HDL Cholesterol 25-OH Vitamin D Total PTH Intact Urine pH Urine WBC (Auto) Urine Creatinine Urine Total Protein Fluid Total Protein Vancomycin Trough Rheumatoid Factor Complement C4 Miscellaneous Test Crossmatch 12/27/16 12/28/16 12/28/16 17:16 00:18 04:00 WBC RBC Hgb Hct MCV MCH MCHC RDW Plt Count Lymph % (Auto) [place] % (Auto) Lymph # [place] # Baso # Seg Neutrophils % Seg Neuts % (Manual) Lymphocytes % (Manual) Monocytes % (Manual) Eosinophils % (Manual) Basophils % (Manual) Nucleated RBC % Seg Neutrophils # Seg Neutrophils # Man Lymphocytes # (Manual) Monocytes # (Manual) Eosinophils # (Manual) Basophils # (Manual) PT INR Fibrinogen dRVVT Confirm Interp Factor V Activity POC ABG pH POC ABG pCO2 POC ABG pO2 ABG pO2 ABG HCO3 ABG Base Excess ABG Hemoglobin Oxyhemoglobin Sodium Potassium 3.5 L Chloride Carbon Dioxide BUN 57 H Creatinine Glucose 118 H POC Glucose 136 H 120 H Lactic Acid Calcium 8.3 L Ionized Calcium Phosphorus Magnesium Direct Bilirubin AST ALT Alkaline Phosphatase Lactate Dehydrogenase Troponin T C-Reactive Protein Total Protein Albumin Prealbumin Triglycerides Cholesterol LDL Cholesterol Direct HDL Cholesterol 25-OH Vitamin D Total PTH Intact Urine pH Urine WBC (Auto) Urine Creatinine Urine Total Protein Fluid Total Protein Vancomycin Trough Rheumatoid Factor Complement C4 Miscellaneous Test Crossmatch 12/28/16 12/28/16 12/28/16 04:00 05:11 08:30 WBC 17.0 H RBC 2.58 L Hgb 7.1 L Hct 22.0 L MCV MCH MCHC RDW 17.6 H Plt Count Lymph % (Auto) 12.2 L [place] % (Auto) Lymph # [place] # 1.1 H Baso # Seg Neutrophils % 80.5 H Seg Neuts % (Manual) Lymphocytes % (Manual) Monocytes % (Manual) Eosinophils % (Manual) Basophils % (Manual) Nucleated RBC % Seg Neutrophils # 13.7 H Seg Neutrophils # Man Lymphocytes # (Manual) Monocytes # (Manual) Eosinophils # (Manual) Basophils # (Manual) PT 16.1 H INR 1.23 H Fibrinogen dRVVT Confirm Interp Factor V Activity POC ABG pH POC ABG pCO2 POC ABG pO2 ABG pO2 ABG HCO3 ABG Base Excess ABG Hemoglobin Oxyhemoglobin Sodium Potassium Chloride Carbon Dioxide BUN Creatinine Glucose POC Glucose 122 H Lactic Acid Calcium Ionized Calcium Phosphorus Magnesium Direct Bilirubin AST ALT Alkaline Phosphatase Lactate Dehydrogenase Troponin T C-Reactive Protein Total Protein Albumin Prealbumin Triglycerides Cholesterol LDL Cholesterol Direct HDL Cholesterol 25-OH Vitamin D Total PTH Intact Urine pH Urine WBC (Auto) Urine Creatinine Urine Total Protein Fluid Total Protein Vancomycin Trough Rheumatoid Factor Complement C4 Miscellaneous Test Crossmatch 12/28/16 12/28/16 12/28/16 12:27 16:32 23:46 WBC RBC Hgb Hct MCV MCH MCHC RDW Plt Count Lymph % (Auto) [place] % (Auto) Lymph # [place] # Baso # Seg Neutrophils % Seg Neuts % (Manual) Lymphocytes % (Manual) Monocytes % (Manual) Eosinophils % (Manual) Basophils % (Manual) Nucleated RBC % Seg Neutrophils # Seg Neutrophils # Man Lymphocytes # (Manual) Monocytes # (Manual) Eosinophils # (Manual) Basophils # (Manual) PT INR Fibrinogen dRVVT Confirm Interp Factor V Activity POC ABG pH POC ABG pCO2 POC ABG pO2 ABG pO2 ABG HCO3 ABG Base Excess ABG Hemoglobin Oxyhemoglobin Sodium Potassium Chloride Carbon Dioxide BUN Creatinine Glucose POC Glucose 127 H 117 H 108 H Lactic Acid Calcium Ionized Calcium Phosphorus Magnesium Direct Bilirubin AST ALT Alkaline Phosphatase Lactate Dehydrogenase Troponin T C-Reactive Protein Total Protein Albumin Prealbumin Triglycerides Cholesterol LDL Cholesterol Direct HDL Cholesterol 25-OH Vitamin D Total PTH Intact Urine pH Urine WBC (Auto) Urine Creatinine Urine Total Protein Fluid Total Protein Vancomycin Trough Rheumatoid Factor Complement C4 Miscellaneous Test Crossmatch 12/29/16 12/29/16 12/29/16 05:15 05:15 05:32 WBC RBC Hgb Hct MCV MCH MCHC RDW Plt Count Lymph % (Auto) [place] % (Auto) Lymph # [place] # Baso # Seg Neutrophils % Seg Neuts % (Manual) Lymphocytes % (Manual) Monocytes % (Manual) Eosinophils % (Manual) Basophils % (Manual) Nucleated RBC % Seg Neutrophils # Seg Neutrophils # Man Lymphocytes # (Manual) Monocytes # (Manual) Eosinophils # (Manual) Basophils # (Manual) PT INR Fibrinogen dRVVT Confirm Interp Factor V Activity POC ABG pH POC ABG pCO2 POC ABG pO2 ABG pO2 ABG HCO3 ABG Base Excess ABG Hemoglobin Oxyhemoglobin Sodium Potassium Chloride Carbon Dioxide BUN 74 H Creatinine 1.6 H Glucose 111 H POC Glucose 123 H Lactic Acid Calcium Ionized Calcium Phosphorus Magnesium Direct Bilirubin AST ALT Alkaline Phosphatase Lactate Dehydrogenase Troponin T C-Reactive Protein Total Protein Albumin Prealbumin 0.110 L Triglycerides Cholesterol LDL Cholesterol Direct HDL Cholesterol 25-OH Vitamin D Total PTH Intact Urine pH Urine WBC (Auto) Urine Creatinine Urine Total Protein Fluid Total Protein Vancomycin Trough Rheumatoid Factor Complement C4 Miscellaneous Test Crossmatch 12/29/16 12/29/16 12/29/16 11:43 13:45 14:00 WBC 13.8 H RBC 2.26 L Hgb 6.3 L Hct 20.4 L MCV MCH MCHC RDW 18.3 H Plt Count Lymph % (Auto) [place] % (Auto) Lymph # [place] # 0.9 H Baso # Seg Neutrophils % 78.6 H Seg Neuts % (Manual) Lymphocytes % (Manual) Monocytes % (Manual) Eosinophils % (Manual) Basophils % (Manual) Nucleated RBC % Seg Neutrophils # 10.8 H Seg Neutrophils # Man Lymphocytes # (Manual) Monocytes # (Manual) Eosinophils # (Manual) Basophils # (Manual) PT INR Fibrinogen dRVVT Confirm Interp Factor V Activity POC ABG pH POC ABG pCO2 POC ABG pO2 ABG pO2 ABG HCO3 ABG Base Excess ABG Hemoglobin Oxyhemoglobin Sodium Potassium Chloride Carbon Dioxide BUN Creatinine Glucose POC Glucose 133 H Lactic Acid Calcium Ionized Calcium Phosphorus Magnesium Direct Bilirubin AST ALT Alkaline Phosphatase Lactate Dehydrogenase Troponin T C-Reactive Protein Total Protein Albumin Prealbumin Triglycerides Cholesterol LDL Cholesterol Direct HDL Cholesterol 25-OH Vitamin D Total PTH Intact Urine pH Urine WBC (Auto) Urine Creatinine Urine Total Protein Fluid Total Protein Vancomycin Trough Rheumatoid Factor Complement C4 Miscellaneous Test Crossmatch See Detail 12/29/16 12/29/16 12/29/16 17:03 23:15 23:22 WBC RBC Hgb 7.3 L Hct 22.3 L MCV MCH MCHC RDW Plt Count Lymph % (Auto) [place] % (Auto) Lymph # [place] # Baso # Seg Neutrophils % Seg Neuts % (Manual) Lymphocytes % (Manual) Monocytes % (Manual) Eosinophils % (Manual) Basophils % (Manual) Nucleated RBC % Seg Neutrophils # Seg Neutrophils # Man Lymphocytes # (Manual) Monocytes # (Manual) Eosinophils # (Manual) Basophils # (Manual) PT INR Fibrinogen dRVVT Confirm Interp Factor V Activity POC ABG pH POC ABG pCO2 POC ABG pO2 ABG pO2 ABG HCO3 ABG Base Excess ABG Hemoglobin Oxyhemoglobin Sodium Potassium Chloride Carbon Dioxide BUN Creatinine Glucose POC Glucose 139 H 120 H Lactic Acid Calcium Ionized Calcium Phosphorus Magnesium Direct Bilirubin AST ALT Alkaline Phosphatase Lactate Dehydrogenase Troponin T C-Reactive Protein Total Protein Albumin Prealbumin Triglycerides Cholesterol LDL Cholesterol Direct HDL Cholesterol 25-OH Vitamin D Total PTH Intact Urine pH Urine WBC (Auto) Urine Creatinine Urine Total Protein Fluid Total Protein Vancomycin Trough Rheumatoid Factor Complement C4 Miscellaneous Test Crossmatch 12/30/16 12/30/16 12/30/16 04:20 04:20 05:43 WBC 15.6 H RBC 2.81 L Hgb 8.0 L Hct 24.0 L MCV MCH MCHC RDW 16.9 H Plt Count Lymph % (Auto) [place] % (Auto) Lymph # [place] # 1.0 H Baso # Seg Neutrophils % 76.2 H Seg Neuts % (Manual) Lymphocytes % (Manual) Monocytes % (Manual) Eosinophils % (Manual) Basophils % (Manual) Nucleated RBC % Seg Neutrophils # 11.9 H Seg Neutrophils # Man Lymphocytes # (Manual) Monocytes # (Manual) Eosinophils # (Manual) Basophils # (Manual) PT INR Fibrinogen dRVVT Confirm Interp Factor V Activity POC ABG pH POC ABG pCO2 POC ABG pO2 ABG pO2 ABG HCO3 ABG Base Excess ABG Hemoglobin Oxyhemoglobin Sodium Potassium Chloride Carbon Dioxide BUN 87 H Creatinine 1.8 H Glucose 119 H POC Glucose 115 H Lactic Acid Calcium Ionized Calcium Phosphorus Magnesium Direct Bilirubin AST ALT Alkaline Phosphatase Lactate Dehydrogenase Troponin T C-Reactive Protein Total Protein Albumin Prealbumin Triglycerides Cholesterol LDL Cholesterol Direct HDL Cholesterol 25-OH Vitamin D Total PTH Intact Urine pH Urine WBC (Auto) Urine Creatinine Urine Total Protein Fluid Total Protein Vancomycin Trough Rheumatoid Factor Complement C4 Miscellaneous Test Crossmatch 12/30/16 12/30/16 12/31/16 17:27 23:21 04:00 WBC RBC Hgb Hct MCV MCH MCHC RDW Plt Count Lymph % (Auto) [place] % (Auto) Lymph # [place] # Baso # Seg Neutrophils % Seg Neuts % (Manual) Lymphocytes % (Manual) Monocytes % (Manual) Eosinophils % (Manual) Basophils % (Manual) Nucleated RBC % Seg Neutrophils # Seg Neutrophils # Man Lymphocytes # (Manual) Monocytes # (Manual) Eosinophils # (Manual) Basophils # (Manual) PT INR Fibrinogen dRVVT Confirm Interp Factor V Activity POC ABG pH POC ABG pCO2 POC ABG pO2 ABG pO2 ABG HCO3 ABG Base Excess ABG Hemoglobin Oxyhemoglobin Sodium Potassium Chloride Carbon Dioxide BUN 59 H Creatinine Glucose 298 H POC Glucose 144 H 125 H Lactic Acid Calcium Ionized Calcium Phosphorus Magnesium Direct Bilirubin AST ALT Alkaline Phosphatase Lactate Dehydrogenase Troponin T C-Reactive Protein Total Protein Albumin Prealbumin Triglycerides Cholesterol LDL Cholesterol Direct HDL Cholesterol 25-OH Vitamin D Total PTH Intact Urine pH Urine WBC (Auto) Urine Creatinine Urine Total Protein Fluid Total Protein Vancomycin Trough Rheumatoid Factor Complement C4 Miscellaneous Test Crossmatch 12/31/16 12/31/16 12/31/16 05:11 12:18 18:17 WBC RBC Hgb Hct MCV MCH MCHC RDW Plt Count Lymph % (Auto) [place] % (Auto) Lymph # [place] # Baso # Seg Neutrophils % Seg Neuts % (Manual) Lymphocytes % (Manual) Monocytes % (Manual) Eosinophils % (Manual) Basophils % (Manual) Nucleated RBC % Seg Neutrophils # Seg Neutrophils # Man Lymphocytes # (Manual) Monocytes # (Manual) Eosinophils # (Manual) Basophils # (Manual) PT INR Fibrinogen dRVVT Confirm Interp Factor V Activity POC ABG pH POC ABG pCO2 POC ABG pO2 ABG pO2 ABG HCO3 ABG Base Excess ABG Hemoglobin Oxyhemoglobin Sodium Potassium Chloride Carbon Dioxide BUN Creatinine Glucose POC Glucose 167 H 125 H 133 H Lactic Acid Calcium Ionized Calcium Phosphorus Magnesium Direct Bilirubin AST ALT Alkaline Phosphatase Lactate Dehydrogenase Troponin T C-Reactive Protein Total Protein Albumin Prealbumin Triglycerides Cholesterol LDL Cholesterol Direct HDL Cholesterol 25-OH Vitamin D Total PTH Intact Urine pH Urine WBC (Auto) Urine Creatinine Urine Total Protein Fluid Total Protein Vancomycin Trough Rheumatoid Factor Complement C4 Miscellaneous Test Crossmatch 12/31/16 01/01/17 01/01/17 23:55 05:00 05:12 WBC RBC Hgb Hct MCV MCH MCHC RDW Plt Count Lymph % (Auto) [place] % (Auto) Lymph # [place] # Baso # Seg Neutrophils % Seg Neuts % (Manual) Lymphocytes % (Manual) Monocytes % (Manual) Eosinophils % (Manual) Basophils % (Manual) Nucleated RBC % Seg Neutrophils # Seg Neutrophils # Man Lymphocytes # (Manual) Monocytes # (Manual) Eosinophils # (Manual) Basophils # (Manual) PT INR Fibrinogen dRVVT Confirm Interp Factor V Activity POC ABG pH POC ABG pCO2 POC ABG pO2 ABG pO2 ABG HCO3 ABG Base Excess ABG Hemoglobin Oxyhemoglobin Sodium Potassium Chloride Carbon Dioxide BUN 76 H Creatinine 1.5 H Glucose 109 H POC Glucose 129 H 129 H Lactic Acid Calcium Ionized Calcium Phosphorus Magnesium Direct Bilirubin AST ALT Alkaline Phosphatase 536 H Lactate Dehydrogenase Troponin T C-Reactive Protein Total Protein Albumin 1.5 L Prealbumin Triglycerides Cholesterol LDL Cholesterol Direct HDL Cholesterol 25-OH Vitamin D Total PTH Intact Urine pH Urine WBC (Auto) Urine Creatinine Urine Total Protein Fluid Total Protein Vancomycin Trough Rheumatoid Factor Complement C4 Miscellaneous Test Crossmatch 01/01/17 01/01/17 01/01/17 12:25 17:01 23:32 WBC RBC Hgb Hct MCV MCH MCHC RDW Plt Count Lymph % (Auto) [place] % (Auto) Lymph # [place] # Baso # Seg Neutrophils % Seg Neuts % (Manual) Lymphocytes % (Manual) Monocytes % (Manual) Eosinophils % (Manual) Basophils % (Manual) Nucleated RBC % Seg Neutrophils # Seg Neutrophils # Man Lymphocytes # (Manual) Monocytes # (Manual) Eosinophils # (Manual) Basophils # (Manual) PT INR Fibrinogen dRVVT Confirm Interp Factor V Activity POC ABG pH POC ABG pCO2 POC ABG pO2 ABG pO2 ABG HCO3 ABG Base Excess ABG Hemoglobin Oxyhemoglobin Sodium Potassium Chloride Carbon Dioxide BUN Creatinine Glucose POC Glucose 140 H 142 H 112 H Lactic Acid Calcium Ionized Calcium Phosphorus Magnesium Direct Bilirubin AST ALT Alkaline Phosphatase Lactate Dehydrogenase Troponin T C-Reactive Protein Total Protein Albumin Prealbumin Triglycerides Cholesterol LDL Cholesterol Direct HDL Cholesterol 25-OH Vitamin D Total PTH Intact Urine pH Urine WBC (Auto) Urine Creatinine Urine Total Protein Fluid Total Protein Vancomycin Trough Rheumatoid Factor Complement C4 Miscellaneous Test Crossmatch 01/02/17 01/02/17 01/02/17 04:56 06:00 11:37 WBC RBC Hgb Hct MCV MCH MCHC RDW Plt Count Lymph % (Auto) [place] % (Auto) Lymph # [place] # Baso # Seg Neutrophils % Seg Neuts % (Manual) Lymphocytes % (Manual) Monocytes % (Manual) Eosinophils % (Manual) Basophils % (Manual) Nucleated RBC % Seg Neutrophils # Seg Neutrophils # Man Lymphocytes # (Manual) Monocytes # (Manual) Eosinophils # (Manual) Basophils # (Manual) PT INR Fibrinogen dRVVT Confirm Interp Factor V Activity POC ABG pH POC ABG pCO2 POC ABG pO2 ABG pO2 ABG HCO3 ABG Base Excess ABG Hemoglobin Oxyhemoglobin Sodium Potassium Chloride Carbon Dioxide BUN 88 H Creatinine 1.7 H Glucose 113 H POC Glucose 136 H 200 H Lactic Acid Calcium Ionized Calcium Phosphorus Magnesium Direct Bilirubin AST ALT Alkaline Phosphatase Lactate Dehydrogenase Troponin T C-Reactive Protein Total Protein Albumin Prealbumin Triglycerides Cholesterol LDL Cholesterol Direct HDL Cholesterol 25-OH Vitamin D Total PTH Intact Urine pH Urine WBC (Auto) Urine Creatinine Urine Total Protein Fluid Total Protein Vancomycin Trough Rheumatoid Factor Complement C4 Miscellaneous Test Crossmatch 01/02/17 01/02/17 01/03/17 17:42 22:52 04:54 WBC RBC Hgb Hct MCV MCH MCHC RDW Plt Count Lymph % (Auto) [place] % (Auto) Lymph # [place] # Baso # Seg Neutrophils % Seg Neuts % (Manual) Lymphocytes % (Manual) Monocytes % (Manual) Eosinophils % (Manual) Basophils % (Manual) Nucleated RBC % Seg Neutrophils # Seg Neutrophils # Man Lymphocytes # (Manual) Monocytes # (Manual) Eosinophils # (Manual) Basophils # (Manual) PT INR Fibrinogen dRVVT Confirm Interp Factor V Activity POC ABG pH POC ABG pCO2 POC ABG pO2 ABG pO2 ABG HCO3 ABG Base Excess ABG Hemoglobin Oxyhemoglobin Sodium Potassium Chloride Carbon Dioxide BUN Creatinine Glucose POC Glucose 112 H 133 H 111 H Lactic Acid Calcium Ionized Calcium Phosphorus Magnesium Direct Bilirubin AST ALT Alkaline Phosphatase Lactate Dehydrogenase Troponin T C-Reactive Protein Total Protein Albumin Prealbumin Triglycerides Cholesterol LDL Cholesterol Direct HDL Cholesterol 25-OH Vitamin D Total PTH Intact Urine pH Urine WBC (Auto) Urine Creatinine Urine Total Protein Fluid Total Protein Vancomycin Trough Rheumatoid Factor Complement C4 Miscellaneous Test Crossmatch 01/03/17 01/03/17 01/03/17 05:00 05:00 14:02 WBC 11.2 H RBC 2.56 L Hgb 7.2 L Hct 22.3 L MCV MCH MCHC RDW 17.3 H Plt Count Lymph % (Auto) [place] % (Auto) 10.0 H Lymph # [place] # 1.1 H Baso # Seg Neutrophils % 70.5 H Seg Neuts % (Manual) Lymphocytes % (Manual) Monocytes % (Manual) Eosinophils % (Manual) Basophils % (Manual) Nucleated RBC % Seg Neutrophils # 7.9 H Seg Neutrophils # Man Lymphocytes # (Manual) Monocytes # (Manual) Eosinophils # (Manual) Basophils # (Manual) PT INR Fibrinogen dRVVT Confirm Interp Factor V Activity POC ABG pH POC ABG pCO2 POC ABG pO2 ABG pO2 ABG HCO3 ABG Base Excess ABG Hemoglobin Oxyhemoglobin Sodium Potassium Chloride Carbon Dioxide BUN 60 H Creatinine 1.3 H Glucose 110 H POC Glucose 119 H Lactic Acid Calcium Ionized Calcium Phosphorus Magnesium Direct Bilirubin AST ALT Alkaline Phosphatase Lactate Dehydrogenase Troponin T C-Reactive Protein Total Protein Albumin Prealbumin Triglycerides Cholesterol LDL Cholesterol Direct HDL Cholesterol 25-OH Vitamin D Total PTH Intact Urine pH Urine WBC (Auto) Urine Creatinine Urine Total Protein Fluid Total Protein Vancomycin Trough Rheumatoid Factor Complement C4 Miscellaneous Test Crossmatch 01/03/17 01/03/17 01/04/17 18:13 23:40 05:57 WBC RBC Hgb Hct MCV MCH MCHC RDW Plt Count Lymph % (Auto) [place] % (Auto) Lymph # [place] # Baso # Seg Neutrophils % Seg Neuts % (Manual) Lymphocytes % (Manual) Monocytes % (Manual) Eosinophils % (Manual) Basophils % (Manual) Nucleated RBC % Seg Neutrophils # Seg Neutrophils # Man Lymphocytes # (Manual) Monocytes # (Manual) Eosinophils # (Manual) Basophils # (Manual) PT INR Fibrinogen dRVVT Confirm Interp Factor V Activity POC ABG pH POC ABG pCO2 POC ABG pO2 ABG pO2 ABG HCO3 ABG Base Excess ABG Hemoglobin Oxyhemoglobin Sodium Potassium Chloride Carbon Dioxide BUN Creatinine Glucose POC Glucose 107 H 129 H 111 H Lactic Acid Calcium Ionized Calcium Phosphorus Magnesium Direct Bilirubin AST ALT Alkaline Phosphatase Lactate Dehydrogenase Troponin T C-Reactive Protein Total Protein Albumin Prealbumin Triglycerides Cholesterol LDL Cholesterol Direct HDL Cholesterol 25-OH Vitamin D Total PTH Intact Urine pH Urine WBC (Auto) Urine Creatinine Urine Total Protein Fluid Total Protein Vancomycin Trough Rheumatoid Factor Complement C4 Miscellaneous Test Crossmatch 01/04/17 01/04/17 01/04/17 12:46 15:27 17:11 WBC RBC Hgb Hct MCV MCH MCHC RDW Plt Count Lymph % (Auto) [place] % (Auto) Lymph # [place] # Baso # Seg Neutrophils % Seg Neuts % (Manual) Lymphocytes % (Manual) Monocytes % (Manual) Eosinophils % (Manual) Basophils % (Manual) Nucleated RBC % Seg Neutrophils # Seg Neutrophils # Man Lymphocytes # (Manual) Monocytes # (Manual) Eosinophils # (Manual) Basophils # (Manual) PT INR Fibrinogen dRVVT Confirm Interp Factor V Activity POC ABG pH POC ABG pCO2 POC ABG pO2 ABG pO2 ABG HCO3 ABG Base Excess ABG Hemoglobin Oxyhemoglobin Sodium Potassium Chloride Carbon Dioxide BUN 43 H Creatinine Glucose 124 H POC Glucose 159 H 125 H Lactic Acid Calcium 8.0 L Ionized Calcium Phosphorus 2.10 L Magnesium Direct Bilirubin AST ALT Alkaline Phosphatase Lactate Dehydrogenase Troponin T C-Reactive Protein Total Protein Albumin Prealbumin Triglycerides Cholesterol LDL Cholesterol Direct HDL Cholesterol 25-OH Vitamin D Total PTH Intact Urine pH Urine WBC (Auto) Urine Creatinine Urine Total Protein Fluid Total Protein Vancomycin Trough Rheumatoid Factor Complement C4 Miscellaneous Test Crossmatch 01/04/17 01/05/17 01/05/17 23:31 04:00 05:46 WBC RBC Hgb Hct MCV MCH MCHC RDW Plt Count Lymph % (Auto) [place] % (Auto) Lymph # [place] # Baso # Seg Neutrophils % Seg Neuts % (Manual) Lymphocytes % (Manual) Monocytes % (Manual) Eosinophils % (Manual) Basophils % (Manual) Nucleated RBC % Seg Neutrophils # Seg Neutrophils # Man Lymphocytes # (Manual) Monocytes # (Manual) Eosinophils # (Manual) Basophils # (Manual) PT INR Fibrinogen dRVVT Confirm Interp Factor V Activity POC ABG pH POC ABG pCO2 POC ABG pO2 ABG pO2 ABG HCO3 ABG Base Excess ABG Hemoglobin Oxyhemoglobin Sodium Potassium Chloride Carbon Dioxide BUN 52 H Creatinine 1.3 H Glucose 113 H POC Glucose 123 H 118 H Lactic Acid Calcium Ionized Calcium Phosphorus 2.40 L Magnesium Direct Bilirubin AST ALT Alkaline Phosphatase Lactate Dehydrogenase Troponin T C-Reactive Protein Total Protein Albumin Prealbumin Triglycerides Cholesterol LDL Cholesterol Direct HDL Cholesterol 25-OH Vitamin D Total PTH Intact Urine pH Urine WBC (Auto) Urine Creatinine Urine Total Protein Fluid Total Protein Vancomycin Trough Rheumatoid Factor Complement C4 Miscellaneous Test Crossmatch 01/05/17 01/05/17 01/05/17 11:41 17:48 23:27 WBC RBC Hgb Hct MCV MCH MCHC RDW Plt Count Lymph % (Auto) [place] % (Auto) Lymph # [place] # Baso # Seg Neutrophils % Seg Neuts % (Manual) Lymphocytes % (Manual) Monocytes % (Manual) Eosinophils % (Manual) Basophils % (Manual) Nucleated RBC % Seg Neutrophils # Seg Neutrophils # Man Lymphocytes # (Manual) Monocytes # (Manual) Eosinophils # (Manual) Basophils # (Manual) PT INR Fibrinogen dRVVT Confirm Interp Factor V Activity POC ABG pH POC ABG pCO2 POC ABG pO2 ABG pO2 ABG HCO3 ABG Base Excess ABG Hemoglobin Oxyhemoglobin Sodium Potassium Chloride Carbon Dioxide BUN Creatinine Glucose POC Glucose 163 H 142 H 155 H Lactic Acid Calcium Ionized Calcium Phosphorus Magnesium Direct Bilirubin AST ALT Alkaline Phosphatase Lactate Dehydrogenase Troponin T C-Reactive Protein Total Protein Albumin Prealbumin Triglycerides Cholesterol LDL Cholesterol Direct HDL Cholesterol 25-OH Vitamin D Total PTH Intact Urine pH Urine WBC (Auto) Urine Creatinine Urine Total Protein Fluid Total Protein Vancomycin Trough Rheumatoid Factor Complement C4 Miscellaneous Test Crossmatch 01/06/17 01/06/17 01/06/17 05:20 07:35 11:18 WBC RBC Hgb Hct MCV MCH MCHC RDW Plt Count Lymph % (Auto) [place] % (Auto) Lymph # [place] # Baso # Seg Neutrophils % Seg Neuts % (Manual) Lymphocytes % (Manual) Monocytes % (Manual) Eosinophils % (Manual) Basophils % (Manual) Nucleated RBC % Seg Neutrophils # Seg Neutrophils # Man Lymphocytes # (Manual) Monocytes # (Manual) Eosinophils # (Manual) Basophils # (Manual) PT INR Fibrinogen dRVVT Confirm Interp Factor V Activity POC ABG pH POC ABG pCO2 POC ABG pO2 ABG pO2 ABG HCO3 ABG Base Excess ABG Hemoglobin Oxyhemoglobin Sodium Potassium Chloride Carbon Dioxide BUN 74 H Creatinine 1.6 H Glucose 135 H POC Glucose 108 H 149 H Lactic Acid Calcium Ionized Calcium Phosphorus Magnesium Direct Bilirubin AST ALT Alkaline Phosphatase Lactate Dehydrogenase Troponin T C-Reactive Protein Total Protein Albumin Prealbumin Triglycerides Cholesterol LDL Cholesterol Direct HDL Cholesterol 25-OH Vitamin D Total PTH Intact Urine pH Urine WBC (Auto) Urine Creatinine Urine Total Protein Fluid Total Protein Vancomycin Trough Rheumatoid Factor Complement C4 Miscellaneous Test Crossmatch 01/06/17 01/07/17 01/07/17 17:17 00:23 05:31 WBC RBC Hgb Hct MCV MCH MCHC RDW Plt Count Lymph % (Auto) [place] % (Auto) Lymph # [place] # Baso # Seg Neutrophils % Seg Neuts % (Manual) Lymphocytes % (Manual) Monocytes % (Manual) Eosinophils % (Manual) Basophils % (Manual) Nucleated RBC % Seg Neutrophils # Seg Neutrophils # Man Lymphocytes # (Manual) Monocytes # (Manual) Eosinophils # (Manual) Basophils # (Manual) PT INR Fibrinogen dRVVT Confirm Interp Factor V Activity POC ABG pH POC ABG pCO2 POC ABG pO2 ABG pO2 ABG HCO3 ABG Base Excess ABG Hemoglobin Oxyhemoglobin Sodium Potassium Chloride Carbon Dioxide BUN Creatinine Glucose POC Glucose 146 H 165 H 153 H Lactic Acid Calcium Ionized Calcium Phosphorus Magnesium Direct Bilirubin AST ALT Alkaline Phosphatase Lactate Dehydrogenase Troponin T C-Reactive Protein Total Protein Albumin Prealbumin Triglycerides Cholesterol LDL Cholesterol Direct HDL Cholesterol 25-OH Vitamin D Total PTH Intact Urine pH Urine WBC (Auto) Urine Creatinine Urine Total Protein Fluid Total Protein Vancomycin Trough Rheumatoid Factor Complement C4 Miscellaneous Test Crossmatch 01/07/17 01/07/17 01/07/17 06:00 11:39 17:11 WBC RBC Hgb Hct MCV MCH MCHC RDW Plt Count Lymph % (Auto) [place] % (Auto) Lymph # [place] # Baso # Seg Neutrophils % Seg Neuts % (Manual) Lymphocytes % (Manual) Monocytes % (Manual) Eosinophils % (Manual) Basophils % (Manual) Nucleated RBC % Seg Neutrophils # Seg Neutrophils # Man Lymphocytes # (Manual) Monocytes # (Manual) Eosinophils # (Manual) Basophils # (Manual) PT INR Fibrinogen dRVVT Confirm Interp Factor V Activity POC ABG pH POC ABG pCO2 POC ABG pO2 ABG pO2 ABG HCO3 ABG Base Excess ABG Hemoglobin Oxyhemoglobin Sodium Potassium Chloride Carbon Dioxide BUN 42 H Creatinine Glucose 175 H POC Glucose 163 H 163 H Lactic Acid Calcium Ionized Calcium Phosphorus 2.40 L D Magnesium Direct Bilirubin AST ALT Alkaline Phosphatase Lactate Dehydrogenase Troponin T C-Reactive Protein Total Protein Albumin Prealbumin Triglycerides Cholesterol LDL Cholesterol Direct HDL Cholesterol 25-OH Vitamin D Total PTH Intact Urine pH Urine WBC (Auto) Urine Creatinine Urine Total Protein Fluid Total Protein Vancomycin Trough Rheumatoid Factor Complement C4 Miscellaneous Test Crossmatch 01/07/17 01/08/17 01/08/17 23:40 05:00 05:00 WBC 27.4 H RBC 2.27 L Hgb 6.1 L Hct 20.4 L MCV MCH 27 L MCHC RDW 17.8 H Plt Count Lymph % (Auto) [place] % (Auto) Lymph # [place] # Baso # Seg Neutrophils % Seg Neuts % (Manual) Lymphocytes % (Manual) Monocytes % (Manual) Eosinophils % (Manual) Basophils % (Manual) Nucleated RBC % Seg Neutrophils # Seg Neutrophils # Man Lymphocytes # (Manual) Monocytes # (Manual) Eosinophils # (Manual) Basophils # (Manual) PT INR Fibrinogen dRVVT Confirm Interp Factor V Activity POC ABG pH POC ABG pCO2 POC ABG pO2 ABG pO2 ABG HCO3 ABG Base Excess ABG Hemoglobin Oxyhemoglobin Sodium Potassium Chloride Carbon Dioxide 16 L D BUN 62 H Creatinine 1.6 H D Glucose 103 H POC Glucose 135 H Lactic Acid Calcium Ionized Calcium Phosphorus Magnesium Direct Bilirubin AST ALT Alkaline Phosphatase Lactate Dehydrogenase Troponin T C-Reactive Protein Total Protein Albumin Prealbumin Triglycerides Cholesterol LDL Cholesterol Direct HDL Cholesterol 25-OH Vitamin D Total PTH Intact Urine pH Urine WBC (Auto) Urine Creatinine Urine Total Protein Fluid Total Protein Vancomycin Trough Rheumatoid Factor Complement C4 Miscellaneous Test Crossmatch 01/08/17 01/08/17 01/08/17 05:25 10:37 10:37 WBC RBC Hgb Hct MCV MCH MCHC RDW Plt Count Lymph % (Auto) [place] % (Auto) Lymph # [place] # Baso # Seg Neutrophils % Seg Neuts % (Manual) Lymphocytes % (Manual) Monocytes % (Manual) Eosinophils % (Manual) Basophils % (Manual) Nucleated RBC % Seg Neutrophils # Seg Neutrophils # Man Lymphocytes # (Manual) Monocytes # (Manual) Eosinophils # (Manual) Basophils # (Manual) PT INR Fibrinogen dRVVT Confirm Interp Factor V Activity POC ABG pH POC ABG pCO2 POC ABG pO2 ABG pO2 ABG HCO3 ABG Base Excess ABG Hemoglobin Oxyhemoglobin Sodium Potassium Chloride Carbon Dioxide BUN Creatinine Glucose POC Glucose 106 H Lactic Acid Calcium Ionized Calcium Phosphorus Magnesium Direct Bilirubin AST ALT Alkaline Phosphatase Lactate Dehydrogenase Troponin T C-Reactive Protein 24.40 H Total Protein Albumin Prealbumin Triglycerides Cholesterol LDL Cholesterol Direct HDL Cholesterol 25-OH Vitamin D Total PTH Intact Urine pH Urine WBC (Auto) Urine Creatinine Urine Total Protein Fluid Total Protein Vancomycin Trough Rheumatoid Factor Complement C4 Miscellaneous Test Crossmatch See Detail 01/08/17 01/08/17 01/08/17 10:37 11:33 15:15 WBC RBC Hgb Hct MCV MCH MCHC RDW Plt Count Lymph % (Auto) [place] % (Auto) Lymph # [place] # Baso # Seg Neutrophils % Seg Neuts % (Manual) Lymphocytes % (Manual) Monocytes % (Manual) Eosinophils % (Manual) Basophils % (Manual) Nucleated RBC % Seg Neutrophils # Seg Neutrophils # Man Lymphocytes # (Manual) Monocytes # (Manual) Eosinophils # (Manual) Basophils # (Manual) PT INR Fibrinogen dRVVT Confirm Interp Factor V Activity POC ABG pH POC ABG pCO2 POC ABG pO2 ABG pO2 ABG HCO3 ABG Base Excess ABG Hemoglobin Oxyhemoglobin Sodium Potassium Chloride Carbon Dioxide BUN Creatinine Glucose POC Glucose 157 H Lactic Acid 9.70 H* 9.10 H* Calcium Ionized Calcium Phosphorus Magnesium Direct Bilirubin AST ALT Alkaline Phosphatase Lactate Dehydrogenase Troponin T C-Reactive Protein Total Protein Albumin Prealbumin Triglycerides Cholesterol LDL Cholesterol Direct HDL Cholesterol 25-OH Vitamin D Total PTH Intact Urine pH Urine WBC (Auto) Urine Creatinine Urine Total Protein Fluid Total Protein Vancomycin Trough Rheumatoid Factor Complement C4 Miscellaneous Test Crossmatch 01/08/17 01/08/17 01/09/17 17:19 23:12 04:40 WBC RBC Hgb Hct MCV MCH MCHC RDW Plt Count Lymph % (Auto) [place] % (Auto) Lymph # [place] # Baso # Seg Neutrophils % Seg Neuts % (Manual) Lymphocytes % (Manual) Monocytes % (Manual) Eosinophils % (Manual) Basophils % (Manual) Nucleated RBC % Seg Neutrophils # Seg Neutrophils # Man Lymphocytes # (Manual) Monocytes # (Manual) Eosinophils # (Manual) Basophils # (Manual) PT INR Fibrinogen dRVVT Confirm Interp Factor V Activity POC ABG pH POC ABG pCO2 POC ABG pO2 ABG pO2 ABG HCO3 ABG Base Excess ABG Hemoglobin Oxyhemoglobin Sodium 147 H Potassium Chloride Carbon Dioxide BUN 82 H Creatinine 1.8 H Glucose 137 H POC Glucose 164 H 157 H Lactic Acid Calcium Ionized Calcium Phosphorus Magnesium Direct Bilirubin AST ALT Alkaline Phosphatase Lactate Dehydrogenase Troponin T C-Reactive Protein Total Protein Albumin Prealbumin Triglycerides Cholesterol LDL Cholesterol Direct HDL Cholesterol 25-OH Vitamin D Total PTH Intact Urine pH Urine WBC (Auto) Urine Creatinine Urine Total Protein Fluid Total Protein Vancomycin Trough Rheumatoid Factor Complement C4 Miscellaneous Test Crossmatch 01/09/17 01/09/17 01/09/17 05:42 08:22 10:57 WBC RBC Hgb Hct MCV MCH MCHC RDW Plt Count Lymph % (Auto) [place] % (Auto) Lymph # [place] # Baso # Seg Neutrophils % Seg Neuts % (Manual) Lymphocytes % (Manual) Monocytes % (Manual) Eosinophils % (Manual) Basophils % (Manual) Nucleated RBC % Seg Neutrophils # Seg Neutrophils # Man Lymphocytes # (Manual) Monocytes # (Manual) Eosinophils # (Manual) Basophils # (Manual) PT INR Fibrinogen dRVVT Confirm Interp Factor V Activity POC ABG pH POC ABG pCO2 POC ABG pO2 ABG pO2 ABG HCO3 ABG Base Excess ABG Hemoglobin Oxyhemoglobin Sodium Potassium Chloride Carbon Dioxide BUN Creatinine Glucose POC Glucose 156 H 122 H Lactic Acid 2.30 H* Calcium Ionized Calcium Phosphorus Magnesium Direct Bilirubin AST ALT Alkaline Phosphatase Lactate Dehydrogenase Troponin T C-Reactive Protein Total Protein Albumin Prealbumin Triglycerides Cholesterol LDL Cholesterol Direct HDL Cholesterol 25-OH Vitamin D Total PTH Intact Urine pH Urine WBC (Auto) Urine Creatinine Urine Total Protein Fluid Total Protein Vancomycin Trough Rheumatoid Factor Complement C4 Miscellaneous Test Crossmatch 01/09/17 01/09/17 01/09/17 13:30 17:14 18:45 WBC RBC Hgb Hct MCV MCH MCHC RDW Plt Count Lymph % (Auto) [place] % (Auto) Lymph # [place] # Baso # Seg Neutrophils % Seg Neuts % (Manual) Lymphocytes % (Manual) Monocytes % (Manual) Eosinophils % (Manual) Basophils % (Manual) Nucleated RBC % Seg Neutrophils # Seg Neutrophils # Man Lymphocytes # (Manual) Monocytes # (Manual) Eosinophils # (Manual) Basophils # (Manual) PT INR Fibrinogen dRVVT Confirm Interp Factor V Activity POC ABG pH POC ABG pCO2 POC ABG pO2 ABG pO2 ABG HCO3 ABG Base Excess ABG Hemoglobin Oxyhemoglobin Sodium Potassium Chloride Carbon Dioxide BUN Creatinine Glucose POC Glucose 127 H Lactic Acid Calcium Ionized Calcium Phosphorus Magnesium Direct Bilirubin AST ALT Alkaline Phosphatase Lactate Dehydrogenase Troponin T C-Reactive Protein 24.70 H Total Protein Albumin Prealbumin Triglycerides Cholesterol LDL Cholesterol Direct HDL Cholesterol 25-OH Vitamin D Total PTH Intact Urine pH Urine WBC (Auto) Urine Creatinine Urine Total Protein Fluid Total Protein Vancomycin Trough Rheumatoid Factor Complement C4 Miscellaneous Test Flexitest 1 H Crossmatch 01/10/17 01/10/17 01/10/17 01:21 04:00 04:00 WBC 18.1 H RBC 3.22 L Hgb 8.8 L Hct 27.0 L D MCV MCH 27 L MCHC RDW 17.0 H Plt Count Lymph % (Auto) [place] % (Auto) Lymph # [place] # Baso # Seg Neutrophils % Seg Neuts % (Manual) Lymphocytes % (Manual) Monocytes % (Manual) Eosinophils % (Manual) Basophils % (Manual) Nucleated RBC % Seg Neutrophils # Seg Neutrophils # Man Lymphocytes # (Manual) Monocytes # (Manual) Eosinophils # (Manual) Basophils # (Manual) PT INR Fibrinogen dRVVT Confirm Interp Factor V Activity POC ABG pH POC ABG pCO2 POC ABG pO2 ABG pO2 ABG HCO3 ABG Base Excess ABG Hemoglobin Oxyhemoglobin Sodium Potassium Chloride Carbon Dioxide BUN 59 H Creatinine 1.3 H Glucose 122 H POC Glucose 160 H Lactic Acid Calcium Ionized Calcium Phosphorus Magnesium Direct Bilirubin AST ALT Alkaline Phosphatase Lactate Dehydrogenase Troponin T C-Reactive Protein Total Protein Albumin Prealbumin Triglycerides Cholesterol LDL Cholesterol Direct HDL Cholesterol 25-OH Vitamin D Total PTH Intact Urine pH Urine WBC (Auto) Urine Creatinine Urine Total Protein Fluid Total Protein Vancomycin Trough Rheumatoid Factor Complement C4 Miscellaneous Test Crossmatch 01/10/17 01/10/17 01/10/17 05:36 12:14 17:55 WBC RBC Hgb Hct MCV MCH MCHC RDW Plt Count Lymph % (Auto) [place] % (Auto) Lymph # [place] # Baso # Seg Neutrophils % Seg Neuts % (Manual) Lymphocytes % (Manual) Monocytes % (Manual) Eosinophils % (Manual) Basophils % (Manual) Nucleated RBC % Seg Neutrophils # Seg Neutrophils # Man Lymphocytes # (Manual) Monocytes # (Manual) Eosinophils # (Manual) Basophils # (Manual) PT INR Fibrinogen dRVVT Confirm Interp Factor V Activity POC ABG pH POC ABG pCO2 POC ABG pO2 ABG pO2 ABG HCO3 ABG Base Excess ABG Hemoglobin Oxyhemoglobin Sodium Potassium Chloride Carbon Dioxide BUN Creatinine Glucose POC Glucose 163 H 120 H 144 H Lactic Acid Calcium Ionized Calcium Phosphorus Magnesium Direct Bilirubin AST ALT Alkaline Phosphatase Lactate Dehydrogenase Troponin T C-Reactive Protein Total Protein Albumin Prealbumin Triglycerides Cholesterol LDL Cholesterol Direct HDL Cholesterol 25-OH Vitamin D Total PTH Intact Urine pH Urine WBC (Auto) Urine Creatinine Urine Total Protein Fluid Total Protein Vancomycin Trough Rheumatoid Factor Complement C4 Miscellaneous Test Crossmatch 01/11/17 01/11/17 01/11/17 00:09 04:00 04:00 WBC 15.8 H RBC 3.04 L Hgb 8.2 L Hct 25.5 L MCV MCH 27 L MCHC RDW 17.3 H Plt Count Lymph % (Auto) [place] % (Auto) Lymph # [place] # Baso # Seg Neutrophils % Seg Neuts % (Manual) Lymphocytes % (Manual) Monocytes % (Manual) Eosinophils % (Manual) Basophils % (Manual) Nucleated RBC % Seg Neutrophils # Seg Neutrophils # Man Lymphocytes # (Manual) Monocytes # (Manual) Eosinophils # (Manual) Basophils # (Manual) PT INR Fibrinogen dRVVT Confirm Interp Factor V Activity POC ABG pH POC ABG pCO2 POC ABG pO2 ABG pO2 ABG HCO3 ABG Base Excess ABG Hemoglobin Oxyhemoglobin Sodium Potassium Chloride Carbon Dioxide BUN 78 H Creatinine 1.6 H Glucose 109 H POC Glucose 122 H Lactic Acid Calcium Ionized Calcium Phosphorus Magnesium Direct Bilirubin AST ALT Alkaline Phosphatase Lactate Dehydrogenase Troponin T C-Reactive Protein Total Protein Albumin Prealbumin Triglycerides Cholesterol LDL Cholesterol Direct HDL Cholesterol 25-OH Vitamin D Total PTH Intact Urine pH Urine WBC (Auto) Urine Creatinine Urine Total Protein Fluid Total Protein Vancomycin Trough Rheumatoid Factor Complement C4 Miscellaneous Test Crossmatch 01/11/17 01/11/17 01/11/17 12:46 18:23 23:42 WBC RBC Hgb Hct MCV MCH MCHC RDW Plt Count Lymph % (Auto) [place] % (Auto) Lymph # [place] # Baso # Seg Neutrophils % Seg Neuts % (Manual) Lymphocytes % (Manual) Monocytes % (Manual) Eosinophils % (Manual) Basophils % (Manual) Nucleated RBC % Seg Neutrophils # Seg Neutrophils # Man Lymphocytes # (Manual) Monocytes # (Manual) Eosinophils # (Manual) Basophils # (Manual) PT INR Fibrinogen dRVVT Confirm Interp Factor V Activity POC ABG pH POC ABG pCO2 POC ABG pO2 ABG pO2 ABG HCO3 ABG Base Excess ABG Hemoglobin Oxyhemoglobin Sodium Potassium Chloride Carbon Dioxide BUN Creatinine Glucose POC Glucose 148 H 125 H 124 H Lactic Acid Calcium Ionized Calcium Phosphorus Magnesium Direct Bilirubin AST ALT Alkaline Phosphatase Lactate Dehydrogenase Troponin T C-Reactive Protein Total Protein Albumin Prealbumin Triglycerides Cholesterol LDL Cholesterol Direct HDL Cholesterol 25-OH Vitamin D Total PTH Intact Urine pH Urine WBC (Auto) Urine Creatinine Urine Total Protein Fluid Total Protein Vancomycin Trough Rheumatoid Factor Complement C4 Miscellaneous Test Crossmatch 01/12/17 01/12/17 01/12/17 04:30 04:30 05:47 WBC 15.8 H RBC 3.31 L Hgb 8.9 L Hct 27.9 L MCV MCH 27 L MCHC RDW 17.4 H Plt Count Lymph % (Auto) [place] % (Auto) Lymph # [place] # Baso # Seg Neutrophils % Seg Neuts % (Manual) Lymphocytes % (Manual) Monocytes % (Manual) Eosinophils % (Manual) Basophils % (Manual) Nucleated RBC % Seg Neutrophils # Seg Neutrophils # Man Lymphocytes # (Manual) Monocytes # (Manual) Eosinophils # (Manual) Basophils # (Manual) PT INR Fibrinogen dRVVT Confirm Interp Factor V Activity POC ABG pH POC ABG pCO2 POC ABG pO2 ABG pO2 ABG HCO3 ABG Base Excess ABG Hemoglobin Oxyhemoglobin Sodium Potassium Chloride Carbon Dioxide BUN 57 H Creatinine Glucose 121 H POC Glucose 110 H Lactic Acid Calcium Ionized Calcium Phosphorus 2.10 L Magnesium Direct Bilirubin AST ALT Alkaline Phosphatase Lactate Dehydrogenase Troponin T C-Reactive Protein Total Protein Albumin Prealbumin Triglycerides Cholesterol LDL Cholesterol Direct HDL Cholesterol 25-OH Vitamin D Total PTH Intact Urine pH Urine WBC (Auto) Urine Creatinine Urine Total Protein Fluid Total Protein Vancomycin Trough Rheumatoid Factor Complement C4 Miscellaneous Test Crossmatch 01/12/17 01/12/17 01/12/17 11:35 17:45 23:14 WBC RBC Hgb Hct MCV MCH MCHC RDW Plt Count Lymph % (Auto) [place] % (Auto) Lymph # [place] # Baso # Seg Neutrophils % Seg Neuts % (Manual) Lymphocytes % (Manual) Monocytes % (Manual) Eosinophils % (Manual) Basophils % (Manual) Nucleated RBC % Seg Neutrophils # Seg Neutrophils # Man Lymphocytes # (Manual) Monocytes # (Manual) Eosinophils # (Manual) Basophils # (Manual) PT INR Fibrinogen dRVVT Confirm Interp Factor V Activity POC ABG pH POC ABG pCO2 POC ABG pO2 ABG pO2 ABG HCO3 ABG Base Excess ABG Hemoglobin Oxyhemoglobin Sodium Potassium Chloride Carbon Dioxide BUN Creatinine Glucose POC Glucose 146 H 117 H 123 H Lactic Acid Calcium Ionized Calcium Phosphorus Magnesium Direct Bilirubin AST ALT Alkaline Phosphatase Lactate Dehydrogenase Troponin T C-Reactive Protein Total Protein Albumin Prealbumin Triglycerides Cholesterol LDL Cholesterol Direct HDL Cholesterol 25-OH Vitamin D Total PTH Intact Urine pH Urine WBC (Auto) Urine Creatinine Urine Total Protein Fluid Total Protein Vancomycin Trough Rheumatoid Factor Complement C4 Miscellaneous Test Crossmatch 01/13/17 01/13/17 01/13/17 05:32 06:00 12:10 WBC RBC Hgb Hct MCV MCH MCHC RDW Plt Count Lymph % (Auto) [place] % (Auto) Lymph # [place] # Baso # Seg Neutrophils % Seg Neuts % (Manual) Lymphocytes % (Manual) Monocytes % (Manual) Eosinophils % (Manual) Basophils % (Manual) Nucleated RBC % Seg Neutrophils # Seg Neutrophils # Man Lymphocytes # (Manual) Monocytes # (Manual) Eosinophils # (Manual) Basophils # (Manual) PT INR Fibrinogen dRVVT Confirm Interp Factor V Activity POC ABG pH POC ABG pCO2 POC ABG pO2 ABG pO2 ABG HCO3 ABG Base Excess ABG Hemoglobin Oxyhemoglobin Sodium Potassium Chloride Carbon Dioxide BUN 80 H Creatinine 1.4 H Glucose 106 H POC Glucose 106 H Lactic Acid Calcium Ionized Calcium Phosphorus Magnesium Direct Bilirubin AST ALT Alkaline Phosphatase Lactate Dehydrogenase Troponin T C-Reactive Protein Total Protein Albumin Prealbumin Triglycerides Cholesterol LDL Cholesterol Direct HDL Cholesterol 25-OH Vitamin D Total PTH Intact Urine pH Urine WBC (Auto) Urine Creatinine Urine Total Protein Fluid Total Protein 3.0 L Vancomycin Trough Rheumatoid Factor Complement C4 Miscellaneous Test Crossmatch 01/13/17 01/13/17 01/13/17 12:17 15:50 17:30 WBC RBC Hgb Hct MCV MCH MCHC RDW Plt Count Lymph % (Auto) [place] % (Auto) Lymph # [place] # Baso # Seg Neutrophils % Seg Neuts % (Manual) Lymphocytes % (Manual) Monocytes % (Manual) Eosinophils % (Manual) Basophils % (Manual) Nucleated RBC % Seg Neutrophils # Seg Neutrophils # Man Lymphocytes # (Manual) Monocytes # (Manual) Eosinophils # (Manual) Basophils # (Manual) PT 15.4 H INR 1.16 H Fibrinogen dRVVT Confirm Interp Factor V Activity POC ABG pH POC ABG pCO2 POC ABG pO2 ABG pO2 ABG HCO3 ABG Base Excess ABG Hemoglobin Oxyhemoglobin Sodium Potassium Chloride Carbon Dioxide BUN Creatinine Glucose POC Glucose 168 H 110 H Lactic Acid Calcium Ionized Calcium Phosphorus Magnesium Direct Bilirubin AST ALT Alkaline Phosphatase Lactate Dehydrogenase Troponin T C-Reactive Protein Total Protein Albumin Prealbumin Triglycerides Cholesterol LDL Cholesterol Direct HDL Cholesterol 25-OH Vitamin D Total PTH Intact Urine pH Urine WBC (Auto) Urine Creatinine Urine Total Protein Fluid Total Protein Vancomycin Trough Rheumatoid Factor Complement C4 Miscellaneous Test Crossmatch 01/13/17 01/14/17 01/14/17 23:42 05:24 05:30 WBC RBC Hgb Hct MCV MCH MCHC RDW Plt Count Lymph % (Auto) [place] % (Auto) Lymph # [place] # Baso # Seg Neutrophils % Seg Neuts % (Manual) Lymphocytes % (Manual) Monocytes % (Manual) Eosinophils % (Manual) Basophils % (Manual) Nucleated RBC % Seg Neutrophils # Seg Neutrophils # Man Lymphocytes # (Manual) Monocytes # (Manual) Eosinophils # (Manual) Basophils # (Manual) PT INR Fibrinogen dRVVT Confirm Interp Factor V Activity POC ABG pH POC ABG pCO2 POC ABG pO2 ABG pO2 ABG HCO3 ABG Base Excess ABG Hemoglobin Oxyhemoglobin Sodium Potassium Chloride Carbon Dioxide BUN 58 H Creatinine Glucose 114 H POC Glucose 155 H 121 H Lactic Acid Calcium Ionized Calcium Phosphorus Magnesium Direct Bilirubin AST ALT Alkaline Phosphatase Lactate Dehydrogenase Troponin T C-Reactive Protein Total Protein Albumin Prealbumin Triglycerides Cholesterol LDL Cholesterol Direct HDL Cholesterol 25-OH Vitamin D Total PTH Intact Urine pH Urine WBC (Auto) Urine Creatinine Urine Total Protein Fluid Total Protein Vancomycin Trough Rheumatoid Factor Complement C4 Miscellaneous Test Crossmatch 01/14/17 01/14/17 01/15/17 12:48 17:36 00:15 WBC RBC Hgb Hct MCV MCH MCHC RDW Plt Count Lymph % (Auto) [place] % (Auto) Lymph # [place] # Baso # Seg Neutrophils % Seg Neuts % (Manual) Lymphocytes % (Manual) Monocytes % (Manual) Eosinophils % (Manual) Basophils % (Manual) Nucleated RBC % Seg Neutrophils # Seg Neutrophils # Man Lymphocytes # (Manual) Monocytes # (Manual) Eosinophils # (Manual) Basophils # (Manual) PT INR Fibrinogen dRVVT Confirm Interp Factor V Activity POC ABG pH POC ABG pCO2 POC ABG pO2 ABG pO2 ABG HCO3 ABG Base Excess ABG Hemoglobin Oxyhemoglobin Sodium Potassium Chloride Carbon Dioxide BUN Creatinine Glucose POC Glucose 130 H 135 H 132 H Lactic Acid Calcium Ionized Calcium Phosphorus Magnesium Direct Bilirubin AST ALT Alkaline Phosphatase Lactate Dehydrogenase Troponin T C-Reactive Protein Total Protein Albumin Prealbumin Triglycerides Cholesterol LDL Cholesterol Direct HDL Cholesterol 25-OH Vitamin D Total PTH Intact Urine pH Urine WBC (Auto) Urine Creatinine Urine Total Protein Fluid Total Protein Vancomycin Trough Rheumatoid Factor Complement C4 Miscellaneous Test Crossmatch 01/15/17 01/15/17 01/15/17 05:01 11:55 12:45 WBC 16.2 H RBC 3.00 L Hgb 8.1 L Hct 25.4 L MCV MCH 27 L MCHC RDW 17.6 H Plt Count Lymph % (Auto) 11.7 L [place] % (Auto) 7.8 H Lymph # [place] # 1.3 H Baso # Seg Neutrophils % 80.1 H Seg Neuts % (Manual) Lymphocytes % (Manual) Monocytes % (Manual) Eosinophils % (Manual) Basophils % (Manual) Nucleated RBC % Seg Neutrophils # 13.0 H Seg Neutrophils # Man Lymphocytes # (Manual) Monocytes # (Manual) Eosinophils # (Manual) Basophils # (Manual) PT INR Fibrinogen dRVVT Confirm Interp Factor V Activity POC ABG pH POC ABG pCO2 POC ABG pO2 ABG pO2 ABG HCO3 ABG Base Excess ABG Hemoglobin Oxyhemoglobin Sodium Potassium Chloride Carbon Dioxide BUN Creatinine Glucose POC Glucose 126 H 125 H Lactic Acid Calcium Ionized Calcium Phosphorus Magnesium Direct Bilirubin AST ALT Alkaline Phosphatase Lactate Dehydrogenase Troponin T C-Reactive Protein Total Protein Albumin Prealbumin Triglycerides Cholesterol LDL Cholesterol Direct HDL Cholesterol 25-OH Vitamin D Total PTH Intact Urine pH Urine WBC (Auto) Urine Creatinine Urine Total Protein Fluid Total Protein Vancomycin Trough Rheumatoid Factor Complement C4 Miscellaneous Test Crossmatch 01/15/17 01/15/17 01/15/17 12:45 17:31 23:39 WBC RBC Hgb Hct MCV MCH MCHC RDW Plt Count Lymph % (Auto) [place] % (Auto) Lymph # [place] # Baso # Seg Neutrophils % Seg Neuts % (Manual) Lymphocytes % (Manual) Monocytes % (Manual) Eosinophils % (Manual) Basophils % (Manual) Nucleated RBC % Seg Neutrophils # Seg Neutrophils # Man Lymphocytes # (Manual) Monocytes # (Manual) Eosinophils # (Manual) Basophils # (Manual) PT INR Fibrinogen dRVVT Confirm Interp Factor V Activity POC ABG pH POC ABG pCO2 POC ABG pO2 ABG pO2 ABG HCO3 ABG Base Excess ABG Hemoglobin Oxyhemoglobin Sodium 136 L Potassium Chloride Carbon Dioxide BUN 87 H Creatinine 1.7 H Glucose 108 H POC Glucose 129 H 112 H Lactic Acid Calcium Ionized Calcium Phosphorus Magnesium Direct Bilirubin AST ALT Alkaline Phosphatase Lactate Dehydrogenase Troponin T C-Reactive Protein Total Protein Albumin Prealbumin Triglycerides Cholesterol LDL Cholesterol Direct HDL Cholesterol 25-OH Vitamin D Total PTH Intact Urine pH Urine WBC (Auto) Urine Creatinine Urine Total Protein Fluid Total Protein Vancomycin Trough Rheumatoid Factor Complement C4 Miscellaneous Test Crossmatch 01/16/17 01/16/17 01/16/17 05:23 11:42 12:32 WBC RBC Hgb Hct MCV MCH MCHC RDW Plt Count Lymph % (Auto) [place] % (Auto) Lymph # [place] # Baso # Seg Neutrophils % Seg Neuts % (Manual) Lymphocytes % (Manual) Monocytes % (Manual) Eosinophils % (Manual) Basophils % (Manual) Nucleated RBC % Seg Neutrophils # Seg Neutrophils # Man Lymphocytes # (Manual) Monocytes # (Manual) Eosinophils # (Manual) Basophils # (Manual) PT INR Fibrinogen dRVVT Confirm Interp Factor V Activity POC ABG pH 7.499 H POC ABG pCO2 30.9 L POC ABG pO2 51 L ABG pO2 ABG HCO3 ABG Base Excess ABG Hemoglobin Oxyhemoglobin Sodium Potassium Chloride Carbon Dioxide BUN Creatinine Glucose POC Glucose 118 H 133 H Lactic Acid Calcium Ionized Calcium Phosphorus Magnesium Direct Bilirubin AST ALT Alkaline Phosphatase Lactate Dehydrogenase Troponin T C-Reactive Protein Total Protein Albumin Prealbumin Triglycerides Cholesterol LDL Cholesterol Direct HDL Cholesterol 25-OH Vitamin D Total PTH Intact Urine pH Urine WBC (Auto) Urine Creatinine Urine Total Protein Fluid Total Protein Vancomycin Trough Rheumatoid Factor Complement C4 Miscellaneous Test Crossmatch 01/16/17 01/16/17 01/16/17 17:52 23:57 Unknown WBC RBC Hgb Hct MCV MCH MCHC RDW Plt Count Lymph % (Auto) [place] % (Auto) Lymph # [place] # Baso # Seg Neutrophils % Seg Neuts % (Manual) Lymphocytes % (Manual) Monocytes % (Manual) Eosinophils % (Manual) Basophils % (Manual) Nucleated RBC % Seg Neutrophils # Seg Neutrophils # Man Lymphocytes # (Manual) Monocytes # (Manual) Eosinophils # (Manual) Basophils # (Manual) PT INR Fibrinogen dRVVT Confirm Interp Factor V Activity POC ABG pH POC ABG pCO2 POC ABG pO2 ABG pO2 ABG HCO3 ABG Base Excess ABG Hemoglobin Oxyhemoglobin Sodium 135 L Potassium Chloride Carbon Dioxide BUN 101 H Creatinine 1.8 H Glucose 117 H POC Glucose 130 H 143 H Lactic Acid Calcium Ionized Calcium Phosphorus 5.80 H Magnesium Direct Bilirubin AST ALT Alkaline Phosphatase Lactate Dehydrogenase Troponin T C-Reactive Protein Total Protein Albumin Prealbumin Triglycerides Cholesterol LDL Cholesterol Direct HDL Cholesterol 25-OH Vitamin D Total PTH Intact Urine pH Urine WBC (Auto) Urine Creatinine Urine Total Protein Fluid Total Protein Vancomycin Trough Rheumatoid Factor Complement C4 Miscellaneous Test Crossmatch 01/17/17 01/17/17 01/17/17 05:30 05:46 11:49 WBC RBC Hgb Hct MCV MCH MCHC RDW Plt Count Lymph % (Auto) [place] % (Auto) Lymph # [place] # Baso # Seg Neutrophils % Seg Neuts % (Manual) Lymphocytes % (Manual) Monocytes % (Manual) Eosinophils % (Manual) Basophils % (Manual) Nucleated RBC % Seg Neutrophils # Seg Neutrophils # Man Lymphocytes # (Manual) Monocytes # (Manual) Eosinophils # (Manual) Basophils # (Manual) PT INR Fibrinogen dRVVT Confirm Interp Factor V Activity POC ABG pH POC ABG pCO2 POC ABG pO2 ABG pO2 ABG HCO3 ABG Base Excess ABG Hemoglobin Oxyhemoglobin Sodium 134 L Potassium Chloride 95.8 L Carbon Dioxide BUN 66 H Creatinine 1.3 H Glucose 138 H POC Glucose 147 H 124 H Lactic Acid Calcium Ionized Calcium Phosphorus Magnesium Direct Bilirubin AST ALT Alkaline Phosphatase 254 H Lactate Dehydrogenase Troponin T C-Reactive Protein Total Protein Albumin 1.3 L Prealbumin Triglycerides Cholesterol LDL Cholesterol Direct HDL Cholesterol 25-OH Vitamin D Total PTH Intact Urine pH Urine WBC (Auto) Urine Creatinine Urine Total Protein Fluid Total Protein Vancomycin Trough Rheumatoid Factor Complement C4 Miscellaneous Test Crossmatch 01/17/17 01/17/17 01/18/17 17:30 23:41 05:15 WBC RBC Hgb Hct MCV MCH MCHC RDW Plt Count Lymph % (Auto) [place] % (Auto) Lymph # [place] # Baso # Seg Neutrophils % Seg Neuts % (Manual) Lymphocytes % (Manual) Monocytes % (Manual) Eosinophils % (Manual) Basophils % (Manual) Nucleated RBC % Seg Neutrophils # Seg Neutrophils # Man Lymphocytes # (Manual) Monocytes # (Manual) Eosinophils # (Manual) Basophils # (Manual) PT INR Fibrinogen dRVVT Confirm Interp Factor V Activity POC ABG pH POC ABG pCO2 POC ABG pO2 ABG pO2 ABG HCO3 ABG Base Excess ABG Hemoglobin Oxyhemoglobin Sodium Potassium Chloride Carbon Dioxide BUN 89 H Creatinine 1.7 H Glucose 118 H POC Glucose 137 H 119 H Lactic Acid Calcium Ionized Calcium Phosphorus Magnesium Direct Bilirubin AST ALT Alkaline Phosphatase Lactate Dehydrogenase Troponin T C-Reactive Protein Total Protein Albumin Prealbumin Triglycerides Cholesterol LDL Cholesterol Direct HDL Cholesterol 25-OH Vitamin D Total PTH Intact Urine pH Urine WBC (Auto) Urine Creatinine Urine Total Protein Fluid Total Protein Vancomycin Trough Rheumatoid Factor Complement C4 Miscellaneous Test Crossmatch 01/18/17 01/18/17 01/18/17 05:19 12:16 18:11 WBC RBC Hgb Hct MCV MCH MCHC RDW Plt Count Lymph % (Auto) [place] % (Auto) Lymph # [place] # Baso # Seg Neutrophils % Seg Neuts % (Manual) Lymphocytes % (Manual) Monocytes % (Manual) Eosinophils % (Manual) Basophils % (Manual) Nucleated RBC % Seg Neutrophils # Seg Neutrophils # Man Lymphocytes # (Manual) Monocytes # (Manual) Eosinophils # (Manual) Basophils # (Manual) PT INR Fibrinogen dRVVT Confirm Interp Factor V Activity POC ABG pH POC ABG pCO2 POC ABG pO2 ABG pO2 ABG HCO3 ABG Base Excess ABG Hemoglobin Oxyhemoglobin Sodium Potassium Chloride Carbon Dioxide BUN Creatinine Glucose POC Glucose 134 H 188 H 113 H Lactic Acid Calcium Ionized Calcium Phosphorus Magnesium Direct Bilirubin AST ALT Alkaline Phosphatase Lactate Dehydrogenase Troponin T C-Reactive Protein Total Protein Albumin Prealbumin Triglycerides Cholesterol LDL Cholesterol Direct HDL Cholesterol 25-OH Vitamin D Total PTH Intact Urine pH Urine WBC (Auto) Urine Creatinine Urine Total Protein Fluid Total Protein Vancomycin Trough Rheumatoid Factor Complement C4 Miscellaneous Test Crossmatch 01/19/17 01/19/17 01/19/17 00:00 05:30 05:36 WBC RBC Hgb Hct MCV MCH MCHC RDW Plt Count Lymph % (Auto) [place] % (Auto) Lymph # [place] # Baso # Seg Neutrophils % Seg Neuts % (Manual) Lymphocytes % (Manual) Monocytes % (Manual) Eosinophils % (Manual) Basophils % (Manual) Nucleated RBC % Seg Neutrophils # Seg Neutrophils # Man Lymphocytes # (Manual) Monocytes # (Manual) Eosinophils # (Manual) Basophils # (Manual) PT INR Fibrinogen dRVVT Confirm Interp Factor V Activity POC ABG pH POC ABG pCO2 POC ABG pO2 ABG pO2 ABG HCO3 ABG Base Excess ABG Hemoglobin Oxyhemoglobin Sodium Potassium Chloride Carbon Dioxide BUN 70 H Creatinine 1.5 H Glucose 121 H POC Glucose 137 H 155 H Lactic Acid Calcium Ionized Calcium Phosphorus 2.10 L D Magnesium Direct Bilirubin AST ALT Alkaline Phosphatase Lactate Dehydrogenase Troponin T C-Reactive Protein Total Protein Albumin Prealbumin Triglycerides Cholesterol LDL Cholesterol Direct HDL Cholesterol 25-OH Vitamin D Total PTH Intact Urine pH Urine WBC (Auto) Urine Creatinine Urine Total Protein Fluid Total Protein Vancomycin Trough Rheumatoid Factor Complement C4 Miscellaneous Test Crossmatch 01/19/17 01/19/17 01/19/17 11:59 15:32 17:57 WBC RBC Hgb Hct MCV MCH MCHC RDW Plt Count Lymph % (Auto) [place] % (Auto) Lymph # [place] # Baso # Seg Neutrophils % Seg Neuts % (Manual) Lymphocytes % (Manual) Monocytes % (Manual) Eosinophils % (Manual) Basophils % (Manual) Nucleated RBC % Seg Neutrophils # Seg Neutrophils # Man Lymphocytes # (Manual) Monocytes # (Manual) Eosinophils # (Manual) Basophils # (Manual) PT INR Fibrinogen dRVVT Confirm Interp Factor V Activity POC ABG pH POC ABG pCO2 33.1 L POC ABG pO2 76 L ABG pO2 ABG HCO3 ABG Base Excess ABG Hemoglobin Oxyhemoglobin Sodium Potassium Chloride Carbon Dioxide BUN Creatinine Glucose POC Glucose 156 H 129 H Lactic Acid Calcium Ionized Calcium Phosphorus Magnesium Direct Bilirubin AST ALT Alkaline Phosphatase Lactate Dehydrogenase Troponin T C-Reactive Protein Total Protein Albumin Prealbumin Triglycerides Cholesterol LDL Cholesterol Direct HDL Cholesterol 25-OH Vitamin D Total PTH Intact Urine pH Urine WBC (Auto) Urine Creatinine Urine Total Protein Fluid Total Protein Vancomycin Trough Rheumatoid Factor Complement C4 Miscellaneous Test Crossmatch 01/19/17 01/20/17 01/20/17 23:49 04:00 05:21 WBC RBC Hgb Hct MCV MCH MCHC RDW Plt Count Lymph % (Auto) [place] % (Auto) Lymph # [place] # Baso # Seg Neutrophils % Seg Neuts % (Manual) Lymphocytes % (Manual) Monocytes % (Manual) Eosinophils % (Manual) Basophils % (Manual) Nucleated RBC % Seg Neutrophils # Seg Neutrophils # Man Lymphocytes # (Manual) Monocytes # (Manual) Eosinophils # (Manual) Basophils # (Manual) PT INR Fibrinogen dRVVT Confirm Interp Factor V Activity POC ABG pH POC ABG pCO2 POC ABG pO2 ABG pO2 ABG HCO3 ABG Base Excess ABG Hemoglobin Oxyhemoglobin Sodium Potassium Chloride Carbon Dioxide BUN 96 H Creatinine 1.9 H Glucose 106 H POC Glucose 125 H 130 H Lactic Acid Calcium Ionized Calcium Phosphorus 2.40 L Magnesium Direct Bilirubin AST ALT Alkaline Phosphatase Lactate Dehydrogenase Troponin T C-Reactive Protein Total Protein Albumin Prealbumin Triglycerides Cholesterol LDL Cholesterol Direct HDL Cholesterol 25-OH Vitamin D Total PTH Intact Urine pH Urine WBC (Auto) Urine Creatinine Urine Total Protein Fluid Total Protein Vancomycin Trough Rheumatoid Factor Complement C4 Miscellaneous Test Crossmatch 01/20/17 01/20/17 01/20/17 11:58 12:17 17:26 WBC RBC Hgb Hct MCV MCH MCHC RDW Plt Count Lymph % (Auto) [place] % (Auto) Lymph # [place] # Baso # Seg Neutrophils % Seg Neuts % (Manual) Lymphocytes % (Manual) Monocytes % (Manual) Eosinophils % (Manual) Basophils % (Manual) Nucleated RBC % Seg Neutrophils # Seg Neutrophils # Man Lymphocytes # (Manual) Monocytes # (Manual) Eosinophils # (Manual) Basophils # (Manual) PT INR Fibrinogen dRVVT Confirm Interp Factor V Activity POC ABG pH POC ABG pCO2 POC ABG pO2 70 L ABG pO2 ABG HCO3 ABG Base Excess ABG Hemoglobin Oxyhemoglobin Sodium Potassium Chloride Carbon Dioxide BUN Creatinine Glucose POC Glucose 118 H 154 H Lactic Acid Calcium Ionized Calcium Phosphorus Magnesium Direct Bilirubin AST ALT Alkaline Phosphatase Lactate Dehydrogenase Troponin T C-Reactive Protein Total Protein Albumin Prealbumin Triglycerides Cholesterol LDL Cholesterol Direct HDL Cholesterol 25-OH Vitamin D Total PTH Intact Urine pH Urine WBC (Auto) Urine Creatinine Urine Total Protein Fluid Total Protein Vancomycin Trough Rheumatoid Factor Complement C4 Miscellaneous Test Crossmatch 01/21/17 01/21/17 01/21/17 04:00 04:56 11:46 WBC RBC Hgb Hct MCV MCH MCHC RDW Plt Count Lymph % (Auto) [place] % (Auto) Lymph # [place] # Baso # Seg Neutrophils % Seg Neuts % (Manual) Lymphocytes % (Manual) Monocytes % (Manual) Eosinophils % (Manual) Basophils % (Manual) Nucleated RBC % Seg Neutrophils # Seg Neutrophils # Man Lymphocytes # (Manual) Monocytes # (Manual) Eosinophils # (Manual) Basophils # (Manual) PT INR Fibrinogen dRVVT Confirm Interp Factor V Activity POC ABG pH POC ABG pCO2 POC ABG pO2 ABG pO2 ABG HCO3 ABG Base Excess ABG Hemoglobin Oxyhemoglobin Sodium Potassium 3.5 L Chloride 97.4 L Carbon Dioxide BUN 66 H Creatinine 1.4 H Glucose POC Glucose 116 H 106 H Lactic Acid Calcium Ionized Calcium Phosphorus 2.10 L Magnesium Direct Bilirubin AST ALT Alkaline Phosphatase Lactate Dehydrogenase Troponin T C-Reactive Protein Total Protein Albumin Prealbumin Triglycerides Cholesterol LDL Cholesterol Direct HDL Cholesterol 25-OH Vitamin D Total PTH Intact Urine pH Urine WBC (Auto) Urine Creatinine Urine Total Protein Fluid Total Protein Vancomycin Trough Rheumatoid Factor Complement C4 Miscellaneous Test Crossmatch 01/21/17 01/21/17 01/22/17 17:25 23:49 05:35 WBC RBC Hgb Hct MCV MCH MCHC RDW Plt Count Lymph % (Auto) [place] % (Auto) Lymph # [place] # Baso # Seg Neutrophils % Seg Neuts % (Manual) Lymphocytes % (Manual) Monocytes % (Manual) Eosinophils % (Manual) Basophils % (Manual) Nucleated RBC % Seg Neutrophils # Seg Neutrophils # Man Lymphocytes # (Manual) Monocytes # (Manual) Eosinophils # (Manual) Basophils # (Manual) PT INR Fibrinogen dRVVT Confirm Interp Factor V Activity POC ABG pH POC ABG pCO2 POC ABG pO2 ABG pO2 ABG HCO3 ABG Base Excess ABG Hemoglobin Oxyhemoglobin Sodium Potassium Chloride Carbon Dioxide BUN Creatinine Glucose POC Glucose 106 H 133 H 107 H Lactic Acid Calcium Ionized Calcium Phosphorus Magnesium Direct Bilirubin AST ALT Alkaline Phosphatase Lactate Dehydrogenase Troponin T C-Reactive Protein Total Protein Albumin Prealbumin Triglycerides Cholesterol LDL Cholesterol Direct HDL Cholesterol 25-OH Vitamin D Total PTH Intact Urine pH Urine WBC (Auto) Urine Creatinine Urine Total Protein Fluid Total Protein Vancomycin Trough Rheumatoid Factor Complement C4 Miscellaneous Test Crossmatch 01/22/17 01/22/17 01/22/17 07:20 07:20 11:31 WBC RBC 2.75 L Hgb 7.5 L Hct 22.7 L MCV MCH 27 L MCHC RDW 17.5 H Plt Count Lymph % (Auto) [place] % (Auto) Lymph # [place] # Baso # Seg Neutrophils % Seg Neuts % (Manual) Lymphocytes % (Manual) Monocytes % (Manual) Eosinophils % (Manual) Basophils % (Manual) Nucleated RBC % Seg Neutrophils # Seg Neutrophils # Man Lymphocytes # (Manual) Monocytes # (Manual) Eosinophils # (Manual) Basophils # (Manual) PT INR Fibrinogen dRVVT Confirm Interp Factor V Activity POC ABG pH POC ABG pCO2 POC ABG pO2 ABG pO2 ABG HCO3 ABG Base Excess ABG Hemoglobin Oxyhemoglobin Sodium Potassium 3.3 L Chloride Carbon Dioxide BUN 42 H Creatinine Glucose 105 H POC Glucose 124 H Lactic Acid Calcium Ionized Calcium Phosphorus 1.70 L Magnesium Direct Bilirubin AST ALT Alkaline Phosphatase Lactate Dehydrogenase Troponin T C-Reactive Protein Total Protein Albumin Prealbumin Triglycerides Cholesterol LDL Cholesterol Direct HDL Cholesterol 25-OH Vitamin D Total PTH Intact Urine pH Urine WBC (Auto) Urine Creatinine Urine Total Protein Fluid Total Protein Vancomycin Trough Rheumatoid Factor Complement C4 Miscellaneous Test Crossmatch 01/22/17 01/22/17 01/23/17 17:16 23:35 05:35 WBC RBC Hgb Hct MCV MCH MCHC RDW Plt Count Lymph % (Auto) [place] % (Auto) Lymph # [place] # Baso # Seg Neutrophils % Seg Neuts % (Manual) Lymphocytes % (Manual) Monocytes % (Manual) Eosinophils % (Manual) Basophils % (Manual) Nucleated RBC % Seg Neutrophils # Seg Neutrophils # Man Lymphocytes # (Manual) Monocytes # (Manual) Eosinophils # (Manual) Basophils # (Manual) PT INR Fibrinogen dRVVT Confirm Interp Factor V Activity POC ABG pH POC ABG pCO2 POC ABG pO2 ABG pO2 ABG HCO3 ABG Base Excess ABG Hemoglobin Oxyhemoglobin Sodium Potassium Chloride Carbon Dioxide BUN Creatinine Glucose POC Glucose 135 H 120 H 111 H Lactic Acid Calcium Ionized Calcium Phosphorus Magnesium Direct Bilirubin AST ALT Alkaline Phosphatase Lactate Dehydrogenase Troponin T C-Reactive Protein Total Protein Albumin Prealbumin Triglycerides Cholesterol LDL Cholesterol Direct HDL Cholesterol 25-OH Vitamin D Total PTH Intact Urine pH Urine WBC (Auto) Urine Creatinine Urine Total Protein Fluid Total Protein Vancomycin Trough Rheumatoid Factor Complement C4 Miscellaneous Test Crossmatch 01/23/17 01/23/17 01/23/17 06:10 17:27 23:44 WBC RBC Hgb Hct MCV MCH MCHC RDW Plt Count Lymph % (Auto) [place] % (Auto) Lymph # [place] # Baso # Seg Neutrophils % Seg Neuts % (Manual) Lymphocytes % (Manual) Monocytes % (Manual) Eosinophils % (Manual) Basophils % (Manual) Nucleated RBC % Seg Neutrophils # Seg Neutrophils # Man Lymphocytes # (Manual) Monocytes # (Manual) Eosinophils # (Manual) Basophils # (Manual) PT INR Fibrinogen dRVVT Confirm Interp Factor V Activity POC ABG pH POC ABG pCO2 POC ABG pO2 ABG pO2 ABG HCO3 ABG Base Excess ABG Hemoglobin Oxyhemoglobin Sodium Potassium 3.3 L Chloride Carbon Dioxide BUN 66 H Creatinine 1.3 H Glucose 109 H POC Glucose 120 H 115 H Lactic Acid Calcium Ionized Calcium Phosphorus 2.20 L D Magnesium Direct Bilirubin AST ALT Alkaline Phosphatase Lactate Dehydrogenase Troponin T C-Reactive Protein Total Protein Albumin Prealbumin Triglycerides Cholesterol LDL Cholesterol Direct HDL Cholesterol 25-OH Vitamin D Total PTH Intact Urine pH Urine WBC (Auto) Urine Creatinine Urine Total Protein Fluid Total Protein Vancomycin Trough Rheumatoid Factor Complement C4 Miscellaneous Test Crossmatch 01/24/17 01/24/17 01/24/17 05:19 05:50 12:19 WBC RBC Hgb Hct MCV MCH MCHC RDW Plt Count Lymph % (Auto) [place] % (Auto) Lymph # [place] # Baso # Seg Neutrophils % Seg Neuts % (Manual) Lymphocytes % (Manual) Monocytes % (Manual) Eosinophils % (Manual) Basophils % (Manual) Nucleated RBC % Seg Neutrophils # Seg Neutrophils # Man Lymphocytes # (Manual) Monocytes # (Manual) Eosinophils # (Manual) Basophils # (Manual) PT INR Fibrinogen dRVVT Confirm Interp Factor V Activity POC ABG pH POC ABG pCO2 POC ABG pO2 ABG pO2 ABG HCO3 ABG Base Excess ABG Hemoglobin Oxyhemoglobin Sodium Potassium Chloride Carbon Dioxide BUN 47 H Creatinine Glucose 117 H POC Glucose 126 H 119 H Lactic Acid Calcium Ionized Calcium Phosphorus 2.30 L Magnesium 1.60 L Direct Bilirubin AST ALT Alkaline Phosphatase Lactate Dehydrogenase Troponin T C-Reactive Protein Total Protein Albumin Prealbumin Triglycerides Cholesterol LDL Cholesterol Direct HDL Cholesterol 25-OH Vitamin D Total PTH Intact Urine pH Urine WBC (Auto) Urine Creatinine Urine Total Protein Fluid Total Protein Vancomycin Trough Rheumatoid Factor Complement C4 Miscellaneous Test Crossmatch 01/24/17 01/25/17 01/25/17 17:08 00:37 04:00 WBC RBC Hgb Hct MCV MCH MCHC RDW Plt Count Lymph % (Auto) [place] % (Auto) Lymph # [place] # Baso # Seg Neutrophils % Seg Neuts % (Manual) Lymphocytes % (Manual) Monocytes % (Manual) Eosinophils % (Manual) Basophils % (Manual) Nucleated RBC % Seg Neutrophils # Seg Neutrophils # Man Lymphocytes # (Manual) Monocytes # (Manual) Eosinophils # (Manual) Basophils # (Manual) PT INR Fibrinogen dRVVT Confirm Interp Factor V Activity POC ABG pH POC ABG pCO2 POC ABG pO2 ABG pO2 ABG HCO3 ABG Base Excess ABG Hemoglobin Oxyhemoglobin Sodium Potassium Chloride Carbon Dioxide BUN 72 H Creatinine 1.3 H Glucose POC Glucose 127 H 110 H Lactic Acid Calcium Ionized Calcium Phosphorus Magnesium Direct Bilirubin AST ALT Alkaline Phosphatase Lactate Dehydrogenase Troponin T C-Reactive Protein Total Protein Albumin Prealbumin Triglycerides Cholesterol LDL Cholesterol Direct HDL Cholesterol 25-OH Vitamin D Total PTH Intact Urine pH Urine WBC (Auto) Urine Creatinine Urine Total Protein Fluid Total Protein Vancomycin Trough Rheumatoid Factor Complement C4 Miscellaneous Test Crossmatch 01/25/17 01/25/17 01/25/17 04:00 11:15 13:05 WBC RBC 2.49 L Hgb 6.7 L Hct 20.9 L MCV MCH 27 L MCHC RDW 18.8 H Plt Count Lymph % (Auto) [place] % (Auto) 10.1 H Lymph # [place] # 1.0 H Baso # Seg Neutrophils % Seg Neuts % (Manual) Lymphocytes % (Manual) Monocytes % (Manual) Eosinophils % (Manual) Basophils % (Manual) Nucleated RBC % Seg Neutrophils # Seg Neutrophils # Man Lymphocytes # (Manual) Monocytes # (Manual) Eosinophils # (Manual) Basophils # (Manual) PT INR Fibrinogen dRVVT Confirm Interp Factor V Activity POC ABG pH POC ABG pCO2 POC ABG pO2 ABG pO2 ABG HCO3 ABG Base Excess ABG Hemoglobin Oxyhemoglobin Sodium Potassium Chloride Carbon Dioxide BUN Creatinine Glucose POC Glucose 128 H Lactic Acid Calcium Ionized Calcium Phosphorus Magnesium Direct Bilirubin AST ALT Alkaline Phosphatase Lactate Dehydrogenase Troponin T C-Reactive Protein Total Protein Albumin Prealbumin Triglycerides Cholesterol LDL Cholesterol Direct HDL Cholesterol 25-OH Vitamin D Total PTH Intact Urine pH Urine WBC (Auto) Urine Creatinine Urine Total Protein Fluid Total Protein Vancomycin Trough Rheumatoid Factor Complement C4 Miscellaneous Test Crossmatch See Detail 01/25/17 01/25/17 01/26/17 18:02 23:07 01:20 WBC RBC Hgb Hct MCV MCH MCHC RDW Plt Count Lymph % (Auto) [place] % (Auto) Lymph # [place] # Baso # Seg Neutrophils % Seg Neuts % (Manual) Lymphocytes % (Manual) Monocytes % (Manual) Eosinophils % (Manual) Basophils % (Manual) Nucleated RBC % Seg Neutrophils # Seg Neutrophils # Man Lymphocytes # (Manual) Monocytes # (Manual) Eosinophils # (Manual) Basophils # (Manual) PT INR Fibrinogen dRVVT Confirm Interp Factor V Activity POC ABG pH POC ABG pCO2 POC ABG pO2 ABG pO2 ABG HCO3 ABG Base Excess ABG Hemoglobin Oxyhemoglobin Sodium Potassium Chloride Carbon Dioxide BUN Creatinine Glucose POC Glucose 120 H 123 H 112 H Lactic Acid Calcium Ionized Calcium Phosphorus Magnesium Direct Bilirubin AST ALT Alkaline Phosphatase Lactate Dehydrogenase Troponin T C-Reactive Protein Total Protein Albumin Prealbumin Triglycerides Cholesterol LDL Cholesterol Direct HDL Cholesterol 25-OH Vitamin D Total PTH Intact Urine pH Urine WBC (Auto) Urine Creatinine Urine Total Protein Fluid Total Protein Vancomycin Trough Rheumatoid Factor Complement C4 Miscellaneous Test Crossmatch 01/26/17 01/26/17 01/26/17 04:20 04:20 11:23 WBC 13.1 H RBC 3.28 L Hgb 9.0 L Hct 26.9 L D MCV MCH 27 L MCHC RDW 17.2 H Plt Count Lymph % (Auto) [place] % (Auto) 9.0 H Lymph # [place] # 1.2 H Baso # Seg Neutrophils % 73.1 H Seg Neuts % (Manual) Lymphocytes % (Manual) Monocytes % (Manual) Eosinophils % (Manual) Basophils % (Manual) Nucleated RBC % Seg Neutrophils # 9.6 H Seg Neutrophils # Man Lymphocytes # (Manual) Monocytes # (Manual) Eosinophils # (Manual) Basophils # (Manual) PT INR Fibrinogen dRVVT Confirm Interp Factor V Activity POC ABG pH POC ABG pCO2 POC ABG pO2 ABG pO2 ABG HCO3 ABG Base Excess ABG Hemoglobin Oxyhemoglobin Sodium Potassium Chloride Carbon Dioxide BUN 51 H Creatinine Glucose 117 H POC Glucose 125 H Lactic Acid Calcium Ionized Calcium Phosphorus Magnesium Direct Bilirubin AST ALT Alkaline Phosphatase Lactate Dehydrogenase Troponin T C-Reactive Protein Total Protein Albumin Prealbumin Triglycerides Cholesterol LDL Cholesterol Direct HDL Cholesterol 25-OH Vitamin D Total PTH Intact Urine pH Urine WBC (Auto) Urine Creatinine Urine Total Protein Fluid Total Protein Vancomycin Trough Rheumatoid Factor Complement C4 Miscellaneous Test Crossmatch 01/26/17 01/27/17 01/27/17 17:11 00:30 04:00 WBC RBC Hgb Hct MCV MCH MCHC RDW Plt Count Lymph % (Auto) [place] % (Auto) Lymph # [place] # Baso # Seg Neutrophils % Seg Neuts % (Manual) Lymphocytes % (Manual) Monocytes % (Manual) Eosinophils % (Manual) Basophils % (Manual) Nucleated RBC % Seg Neutrophils # Seg Neutrophils # Man Lymphocytes # (Manual) Monocytes # (Manual) Eosinophils # (Manual) Basophils # (Manual) PT INR Fibrinogen dRVVT Confirm Interp Factor V Activity POC ABG pH POC ABG pCO2 POC ABG pO2 ABG pO2 ABG HCO3 ABG Base Excess ABG Hemoglobin Oxyhemoglobin Sodium Potassium Chloride 97.7 L Carbon Dioxide 21 L BUN 79 H Creatinine 1.7 H D Glucose 112 H POC Glucose 133 H 135 H Lactic Acid Calcium Ionized Calcium Phosphorus 5.00 H D Magnesium Direct Bilirubin AST ALT Alkaline Phosphatase Lactate Dehydrogenase Troponin T C-Reactive Protein Total Protein Albumin Prealbumin Triglycerides Cholesterol LDL Cholesterol Direct HDL Cholesterol 25-OH Vitamin D Total PTH Intact Urine pH Urine WBC (Auto) Urine Creatinine Urine Total Protein Fluid Total Protein Vancomycin Trough Rheumatoid Factor Complement C4 Miscellaneous Test Crossmatch 01/27/17 01/27/17 01/27/17 05:12 12:18 17:25 WBC RBC Hgb Hct MCV MCH MCHC RDW Plt Count Lymph % (Auto) [place] % (Auto) Lymph # [place] # Baso # Seg Neutrophils % Seg Neuts % (Manual) Lymphocytes % (Manual) Monocytes % (Manual) Eosinophils % (Manual) Basophils % (Manual) Nucleated RBC % Seg Neutrophils # Seg Neutrophils # Man Lymphocytes # (Manual) Monocytes # (Manual) Eosinophils # (Manual) Basophils # (Manual) PT INR Fibrinogen dRVVT Confirm Interp Factor V Activity POC ABG pH POC ABG pCO2 POC ABG pO2 ABG pO2 ABG HCO3 ABG Base Excess ABG Hemoglobin Oxyhemoglobin Sodium Potassium Chloride Carbon Dioxide BUN Creatinine Glucose POC Glucose 116 H 153 H 152 H Lactic Acid Calcium Ionized Calcium Phosphorus Magnesium Direct Bilirubin AST ALT Alkaline Phosphatase Lactate Dehydrogenase Troponin T C-Reactive Protein Total Protein Albumin Prealbumin Triglycerides Cholesterol LDL Cholesterol Direct HDL Cholesterol 25-OH Vitamin D Total PTH Intact Urine pH Urine WBC (Auto) Urine Creatinine Urine Total Protein Fluid Total Protein Vancomycin Trough Rheumatoid Factor Complement C4 Miscellaneous Test Crossmatch 01/27/17 01/28/17 01/28/17 23:42 04:00 04:00 WBC 14.4 H RBC 2.82 L Hgb 7.4 L Hct 23.5 L MCV MCH 26 L MCHC RDW 17.6 H Plt Count Lymph % (Auto) 10.2 L [place] % (Auto) 11.0 H Lymph # [place] # 1.6 H Baso # Seg Neutrophils % 78.0 H Seg Neuts % (Manual) Lymphocytes % (Manual) Monocytes % (Manual) Eosinophils % (Manual) Basophils % (Manual) Nucleated RBC % Seg Neutrophils # 11.3 H Seg Neutrophils # Man Lymphocytes # (Manual) Monocytes # (Manual) Eosinophils # (Manual) Basophils # (Manual) PT INR Fibrinogen dRVVT Confirm Interp Factor V Activity POC ABG pH POC ABG pCO2 POC ABG pO2 ABG pO2 ABG HCO3 ABG Base Excess ABG Hemoglobin Oxyhemoglobin Sodium Potassium Chloride Carbon Dioxide BUN 55 H Creatinine 1.3 H Glucose 114 H POC Glucose 121 H Lactic Acid Calcium Ionized Calcium Phosphorus Magnesium Direct Bilirubin AST ALT Alkaline Phosphatase Lactate Dehydrogenase Troponin T C-Reactive Protein Total Protein Albumin 1.4 L Prealbumin Triglycerides Cholesterol LDL Cholesterol Direct HDL Cholesterol 25-OH Vitamin D Total PTH Intact Urine pH Urine WBC (Auto) Urine Creatinine Urine Total Protein Fluid Total Protein Vancomycin Trough Rheumatoid Factor Complement C4 Miscellaneous Test Crossmatch 01/28/17 01/28/17 01/29/17 04:59 12:30 00:02 WBC RBC Hgb Hct MCV MCH MCHC RDW Plt Count Lymph % (Auto) [place] % (Auto) Lymph # [place] # Baso # Seg Neutrophils % Seg Neuts % (Manual) Lymphocytes % (Manual) Monocytes % (Manual) Eosinophils % (Manual) Basophils % (Manual) Nucleated RBC % Seg Neutrophils # Seg Neutrophils # Man Lymphocytes # (Manual) Monocytes # (Manual) Eosinophils # (Manual) Basophils # (Manual) PT INR Fibrinogen dRVVT Confirm Interp Factor V Activity POC ABG pH POC ABG pCO2 POC ABG pO2 ABG pO2 ABG HCO3 ABG Base Excess ABG Hemoglobin Oxyhemoglobin Sodium Potassium Chloride Carbon Dioxide BUN Creatinine Glucose POC Glucose 126 H 119 H 138 H Lactic Acid Calcium Ionized Calcium Phosphorus Magnesium Direct Bilirubin AST ALT Alkaline Phosphatase Lactate Dehydrogenase Troponin T C-Reactive Protein Total Protein Albumin Prealbumin Triglycerides Cholesterol LDL Cholesterol Direct HDL Cholesterol 25-OH Vitamin D Total PTH Intact Urine pH Urine WBC (Auto) Urine Creatinine Urine Total Protein Fluid Total Protein Vancomycin Trough Rheumatoid Factor Complement C4 Miscellaneous Test Crossmatch 01/29/17 01/29/17 01/29/17 04:58 06:15 11:35 WBC RBC Hgb Hct MCV MCH MCHC RDW Plt Count Lymph % (Auto) [place] % (Auto) Lymph # [place] # Baso # Seg Neutrophils % Seg Neuts % (Manual) Lymphocytes % (Manual) Monocytes % (Manual) Eosinophils % (Manual) Basophils % (Manual) Nucleated RBC % Seg Neutrophils # Seg Neutrophils # Man Lymphocytes # (Manual) Monocytes # (Manual) Eosinophils # (Manual) Basophils # (Manual) PT INR Fibrinogen dRVVT Confirm Interp Factor V Activity POC ABG pH POC ABG pCO2 POC ABG pO2 ABG pO2 ABG HCO3 ABG Base Excess ABG Hemoglobin Oxyhemoglobin Sodium Potassium Chloride Carbon Dioxide BUN 85 H Creatinine 1.7 H Glucose 105 H POC Glucose 114 H 110 H Lactic Acid Calcium Ionized Calcium Phosphorus Magnesium 2.40 H Direct Bilirubin AST ALT Alkaline Phosphatase Lactate Dehydrogenase Troponin T C-Reactive Protein Total Protein Albumin Prealbumin Triglycerides Cholesterol LDL Cholesterol Direct HDL Cholesterol 25-OH Vitamin D Total PTH Intact Urine pH Urine WBC (Auto) Urine Creatinine Urine Total Protein Fluid Total Protein Vancomycin Trough Rheumatoid Factor Complement C4 Miscellaneous Test Crossmatch 01/29/17 01/29/17 01/30/17 18:24 23:41 05:12 WBC RBC Hgb Hct MCV MCH MCHC RDW Plt Count Lymph % (Auto) [place] % (Auto) Lymph # [place] # Baso # Seg Neutrophils % Seg Neuts % (Manual) Lymphocytes % (Manual) Monocytes % (Manual) Eosinophils % (Manual) Basophils % (Manual) Nucleated RBC % Seg Neutrophils # Seg Neutrophils # Man Lymphocytes # (Manual) Monocytes # (Manual) Eosinophils # (Manual) Basophils # (Manual) PT INR Fibrinogen dRVVT Confirm Interp Factor V Activity POC ABG pH POC ABG pCO2 POC ABG pO2 ABG pO2 ABG HCO3 ABG Base Excess ABG Hemoglobin Oxyhemoglobin Sodium Potassium Chloride Carbon Dioxide BUN Creatinine Glucose POC Glucose 109 H 134 H 109 H Lactic Acid Calcium Ionized Calcium Phosphorus Magnesium Direct Bilirubin AST ALT Alkaline Phosphatase Lactate Dehydrogenase Troponin T C-Reactive Protein Total Protein Albumin Prealbumin Triglycerides Cholesterol LDL Cholesterol Direct HDL Cholesterol 25-OH Vitamin D Total PTH Intact Urine pH Urine WBC (Auto) Urine Creatinine Urine Total Protein Fluid Total Protein Vancomycin Trough Rheumatoid Factor Complement C4 Miscellaneous Test Crossmatch 01/30/17 01/30/17 01/30/17 11:26 17:43 23:39 WBC RBC Hgb Hct MCV MCH MCHC RDW Plt Count Lymph % (Auto) [place] % (Auto) Lymph # [place] # Baso # Seg Neutrophils % Seg Neuts % (Manual) Lymphocytes % (Manual) Monocytes % (Manual) Eosinophils % (Manual) Basophils % (Manual) Nucleated RBC % Seg Neutrophils # Seg Neutrophils # Man Lymphocytes # (Manual) Monocytes # (Manual) Eosinophils # (Manual) Basophils # (Manual) PT INR Fibrinogen dRVVT Confirm Interp Factor V Activity POC ABG pH POC ABG pCO2 POC ABG pO2 ABG pO2 ABG HCO3 ABG Base Excess ABG Hemoglobin Oxyhemoglobin Sodium Potassium Chloride Carbon Dioxide BUN Creatinine Glucose POC Glucose 135 H 143 H 122 H Lactic Acid Calcium Ionized Calcium Phosphorus Magnesium Direct Bilirubin AST ALT Alkaline Phosphatase Lactate Dehydrogenase Troponin T C-Reactive Protein Total Protein Albumin Prealbumin Triglycerides Cholesterol LDL Cholesterol Direct HDL Cholesterol 25-OH Vitamin D Total PTH Intact Urine pH Urine WBC (Auto) Urine Creatinine Urine Total Protein Fluid Total Protein Vancomycin Trough Rheumatoid Factor Complement C4 Miscellaneous Test Crossmatch 1201/31/17 01/31/17 04:00 05:40 11:12 WBC RBC Hgb Hct MCV MCH MCHC RDW Plt Count Lymph % (Auto) [place] % (Auto) Lymph # [place] # Baso # Seg Neutrophils % Seg Neuts % (Manual) Lymphocytes % (Manual) Monocytes % (Manual) Eosinophils % (Manual) Basophils % (Manual) Nucleated RBC % Seg Neutrophils # Seg Neutrophils # Man Lymphocytes # (Manual) Monocytes # (Manual) Eosinophils # (Manual) Basophils # (Manual) PT INR Fibrinogen dRVVT Confirm Interp Factor V Activity POC ABG pH POC ABG pCO2 POC ABG pO2 ABG pO2 ABG HCO3 ABG Base Excess ABG Hemoglobin Oxyhemoglobin Sodium Potassium Chloride Carbon Dioxide BUN 78 H Creatinine 1.5 H Glucose 108 H POC Glucose 123 H Lactic Acid Calcium Ionized Calcium Phosphorus Magnesium Direct Bilirubin AST ALT Alkaline Phosphatase Lactate Dehydrogenase Troponin T C-Reactive Protein 8.10 H Total Protein Albumin Prealbumin Triglycerides Cholesterol LDL Cholesterol Direct HDL Cholesterol 25-OH Vitamin D Total PTH Intact Urine pH Urine WBC (Auto) Urine Creatinine Urine Total Protein Fluid Total Protein Vancomycin Trough Rheumatoid Factor Complement C4 Miscellaneous Test Crossmatch 01/31/17 01/31/17 01/31/17 11:16 17:45 17:50 WBC RBC Hgb Hct MCV MCH MCHC RDW Plt Count Lymph % (Auto) [place] % (Auto) Lymph # [place] # Baso # Seg Neutrophils % Seg Neuts % (Manual) Lymphocytes % (Manual) Monocytes % (Manual) Eosinophils % (Manual) Basophils % (Manual) Nucleated RBC % Seg Neutrophils # Seg Neutrophils # Man Lymphocytes # (Manual) Monocytes # (Manual) Eosinophils # (Manual) Basophils # (Manual) PT INR Fibrinogen dRVVT Confirm Interp Factor V Activity POC ABG pH POC ABG pCO2 POC ABG pO2 ABG pO2 ABG HCO3 ABG Base Excess ABG Hemoglobin Oxyhemoglobin Sodium Potassium Chloride Carbon Dioxide BUN Creatinine Glucose POC Glucose 119 H 111 H Lactic Acid Calcium Ionized Calcium Phosphorus Magnesium Direct Bilirubin AST ALT Alkaline Phosphatase Lactate Dehydrogenase Troponin T C-Reactive Protein Total Protein Albumin Prealbumin Triglycerides Cholesterol LDL Cholesterol Direct HDL Cholesterol 25-OH Vitamin D Total PTH Intact 6.76 L Urine pH Urine WBC (Auto) Urine Creatinine Urine Total Protein Fluid Total Protein Vancomycin Trough Rheumatoid Factor Complement C4 Miscellaneous Test Crossmatch 01/31/17 02/01/17 02/01/17 23:19 05:42 09:24 WBC RBC Hgb Hct MCV MCH MCHC RDW Plt Count Lymph % (Auto) [place] % (Auto) Lymph # [place] # Baso # Seg Neutrophils % Seg Neuts % (Manual) Lymphocytes % (Manual) Monocytes % (Manual) Eosinophils % (Manual) Basophils % (Manual) Nucleated RBC % Seg Neutrophils # Seg Neutrophils # Man Lymphocytes # (Manual) Monocytes # (Manual) Eosinophils # (Manual) Basophils # (Manual) PT INR Fibrinogen dRVVT Confirm Interp Factor V Activity POC ABG pH POC ABG pCO2 POC ABG pO2 ABG pO2 ABG HCO3 ABG Base Excess ABG Hemoglobin Oxyhemoglobin Sodium Potassium Chloride Carbon Dioxide BUN Creatinine Glucose POC Glucose 118 H 122 H Lactic Acid Calcium Ionized Calcium Phosphorus Magnesium 2.60 H Direct Bilirubin AST ALT Alkaline Phosphatase Lactate Dehydrogenase Troponin T C-Reactive Protein Total Protein Albumin Prealbumin Triglycerides Cholesterol LDL Cholesterol Direct HDL Cholesterol 25-OH Vitamin D Total PTH Intact Urine pH Urine WBC (Auto) Urine Creatinine Urine Total Protein Fluid Total Protein Vancomycin Trough Rheumatoid Factor Complement C4 Miscellaneous Test Crossmatch 02/01/17 02/01/17 02/02/17 09:24 12:15 07:40 WBC RBC Hgb Hct MCV MCH MCHC RDW Plt Count Lymph % (Auto) [place] % (Auto) Lymph # [place] # Baso # Seg Neutrophils % Seg Neuts % (Manual) Lymphocytes % (Manual) Monocytes % (Manual) Eosinophils % (Manual) Basophils % (Manual) Nucleated RBC % Seg Neutrophils # Seg Neutrophils # Man Lymphocytes # (Manual) Monocytes # (Manual) Eosinophils # (Manual) Basophils # (Manual) PT INR Fibrinogen dRVVT Confirm Interp Factor V Activity POC ABG pH POC ABG pCO2 POC ABG pO2 ABG pO2 ABG HCO3 ABG Base Excess ABG Hemoglobin Oxyhemoglobin Sodium Potassium Chloride Carbon Dioxide BUN 102 H 72 H Creatinine 1.9 H 1.5 H Glucose 120 H POC Glucose 156 H Lactic Acid Calcium Ionized Calcium Phosphorus Magnesium Direct Bilirubin AST ALT Alkaline Phosphatase Lactate Dehydrogenase Troponin T C-Reactive Protein Total Protein Albumin Prealbumin Triglycerides Cholesterol LDL Cholesterol Direct HDL Cholesterol 25-OH Vitamin D Total PTH Intact Urine pH Urine WBC (Auto) Urine Creatinine Urine Total Protein Fluid Total Protein Vancomycin Trough Rheumatoid Factor Complement C4 Miscellaneous Test Crossmatch 02/02/17 02/02/17 02/03/17 10:16 12:11 00:08 WBC 12.0 H RBC 3.08 L Hgb 8.3 L Hct 25.6 L MCV MCH 27 L MCHC RDW 18.2 H Plt Count Lymph % (Auto) [place] % (Auto) Lymph # [place] # Baso # Seg Neutrophils % 78.4 H Seg Neuts % (Manual) Lymphocytes % (Manual) Monocytes % (Manual) Eosinophils % (Manual) Basophils % (Manual) Nucleated RBC % Seg Neutrophils # 9.4 H Seg Neutrophils # Man Lymphocytes # (Manual) Monocytes # (Manual) Eosinophils # (Manual) Basophils # (Manual) PT INR Fibrinogen dRVVT Confirm Interp Factor V Activity POC ABG pH POC ABG pCO2 POC ABG pO2 ABG pO2 ABG HCO3 ABG Base Excess ABG Hemoglobin Oxyhemoglobin Sodium Potassium Chloride Carbon Dioxide BUN Creatinine Glucose POC Glucose 110 H 120 H Lactic Acid Calcium Ionized Calcium Phosphorus Magnesium Direct Bilirubin AST ALT Alkaline Phosphatase Lactate Dehydrogenase Troponin T C-Reactive Protein Total Protein Albumin Prealbumin Triglycerides Cholesterol LDL Cholesterol Direct HDL Cholesterol 25-OH Vitamin D Total PTH Intact Urine pH Urine WBC (Auto) Urine Creatinine Urine Total Protein Fluid Total Protein Vancomycin Trough Rheumatoid Factor Complement C4 Miscellaneous Test Crossmatch 02/03/17 02/03/17 02/03/17 05:41 07:38 11:31 WBC RBC Hgb Hct MCV MCH MCHC RDW Plt Count Lymph % (Auto) [place] % (Auto) Lymph # [place] # Baso # Seg Neutrophils % Seg Neuts % (Manual) Lymphocytes % (Manual) Monocytes % (Manual) Eosinophils % (Manual) Basophils % (Manual) Nucleated RBC % Seg Neutrophils # Seg Neutrophils # Man Lymphocytes # (Manual) Monocytes # (Manual) Eosinophils # (Manual) Basophils # (Manual) PT INR Fibrinogen dRVVT Confirm Interp Factor V Activity POC ABG pH POC ABG pCO2 POC ABG pO2 ABG pO2 ABG HCO3 ABG Base Excess ABG Hemoglobin Oxyhemoglobin Sodium 134 L Potassium Chloride Carbon Dioxide 21 L BUN 91 H Creatinine 1.9 H Glucose 110 H POC Glucose 119 H 119 H Lactic Acid Calcium 10.3 H Ionized Calcium Phosphorus Magnesium Direct Bilirubin AST ALT Alkaline Phosphatase Lactate Dehydrogenase Troponin T C-Reactive Protein Total Protein Albumin Prealbumin Triglycerides Cholesterol LDL Cholesterol Direct HDL Cholesterol 25-OH Vitamin D Total PTH Intact Urine pH Urine WBC (Auto) Urine Creatinine Urine Total Protein Fluid Total Protein Vancomycin Trough Rheumatoid Factor Complement C4 Miscellaneous Test Crossmatch 02/03/17 02/04/1702/04/17 17:13 04:00 05:18 WBC RBC Hgb Hct MCV MCH MCHC RDW Plt Count Lymph % (Auto) [place] % (Auto) Lymph # [place] # Baso # Seg Neutrophils % Seg Neuts % (Manual) Lymphocytes % (Manual) Monocytes % (Manual) Eosinophils % (Manual) Basophils % (Manual) Nucleated RBC % Seg Neutrophils # Seg Neutrophils # Man Lymphocytes # (Manual) Monocytes # (Manual) Eosinophils # (Manual) Basophils # (Manual) PT INR Fibrinogen dRVVT Confirm Interp Factor V Activity POC ABG pH POC ABG pCO2 POC ABG pO2 ABG pO2 ABG HCO3 ABG Base Excess ABG Hemoglobin Oxyhemoglobin Sodium 136 L Potassium Chloride Carbon Dioxide BUN 58 H Creatinine 1.3 H Glucose 103 H POC Glucose 133 H 132 H Lactic Acid Calcium Ionized Calcium Phosphorus 2.00 L D Magnesium 1.60 L Direct Bilirubin AST ALT Alkaline Phosphatase Lactate Dehydrogenase Troponin T C-Reactive Protein Total Protein Albumin Prealbumin Triglycerides Cholesterol LDL Cholesterol Direct HDL Cholesterol 25-OH Vitamin D Total PTH Intact Urine pH Urine WBC (Auto) Urine Creatinine Urine Total Protein Fluid Total Protein Vancomycin Trough Rheumatoid Factor Complement C4 Miscellaneous Test Crossmatch 02/05/17 02/05/17 02/05/17 00:01 04:00 06:42 WBC RBC Hgb Hct MCV MCH MCHC RDW Plt Count Lymph % (Auto) [place] % (Auto) Lymph # [place] # Baso # Seg Neutrophils % Seg Neuts % (Manual) Lymphocytes % (Manual) Monocytes % (Manual) Eosinophils % (Manual) Basophils % (Manual) Nucleated RBC % Seg Neutrophils # Seg Neutrophils # Man Lymphocytes # (Manual) Monocytes # (Manual) Eosinophils # (Manual) Basophils # (Manual) PT INR Fibrinogen dRVVT Confirm Interp Factor V Activity POC ABG pH POC ABG pCO2 POC ABG pO2 ABG pO2 ABG HCO3 ABG Base Excess ABG Hemoglobin Oxyhemoglobin Sodium Potassium Chloride Carbon Dioxide BUN 83 H Creatinine 1.8 H Glucose POC Glucose 119 H 110 H Lactic Acid Calcium 10.7 H Ionized Calcium Phosphorus Magnesium Direct Bilirubin AST ALT Alkaline Phosphatase Lactate Dehydrogenase Troponin T C-Reactive Protein Total Protein Albumin Prealbumin Triglycerides Cholesterol LDL Cholesterol Direct HDL Cholesterol 25-OH Vitamin D Total PTH Intact Urine pH Urine WBC (Auto) Urine Creatinine Urine Total Protein Fluid Total Protein Vancomycin Trough Rheumatoid Factor Complement C4 Miscellaneous Test Crossmatch 02/05/17 02/05/17 02/05/17 09:59 11:47 23:44 WBC RBC 2.69 L Hgb 7.2 L Hct 22.5 L MCV MCH 27 L MCHC RDW 18.6 H Plt Count Lymph % (Auto) [place] % (Auto) 9.2 H Lymph # [place] # 0.9 H Baso # Seg Neutrophils % Seg Neuts % (Manual) Lymphocytes % (Manual) Monocytes % (Manual) Eosinophils % (Manual) Basophils % (Manual) Nucleated RBC % Seg Neutrophils # Seg Neutrophils # Man Lymphocytes # (Manual) Monocytes # (Manual) Eosinophils # (Manual) Basophils # (Manual) PT INR Fibrinogen dRVVT Confirm Interp Factor V Activity POC ABG pH POC ABG pCO2 POC ABG pO2 ABG pO2 ABG HCO3 ABG Base Excess ABG Hemoglobin Oxyhemoglobin Sodium Potassium Chloride Carbon Dioxide BUN Creatinine Glucose POC Glucose 130 H 123 H Lactic Acid Calcium Ionized Calcium Phosphorus Magnesium Direct Bilirubin AST ALT Alkaline Phosphatase Lactate Dehydrogenase Troponin T C-Reactive Protein Total Protein Albumin Prealbumin Triglycerides Cholesterol LDL Cholesterol Direct HDL Cholesterol 25-OH Vitamin D Total PTH Intact Urine pH Urine WBC (Auto) Urine Creatinine Urine Total Protein Fluid Total Protein Vancomycin Trough Rheumatoid Factor Complement C4 Miscellaneous Test Crossmatch 02/06/17 02/06/17 02/06/17 04:45 05:58 12:01 WBC RBC Hgb Hct MCV MCH MCHC RDW Plt Count Lymph % (Auto) [place] % (Auto) Lymph # [place] # Baso # Seg Neutrophils % Seg Neuts % (Manual) Lymphocytes % (Manual) Monocytes % (Manual) Eosinophils % (Manual) Basophils % (Manual) Nucleated RBC % Seg Neutrophils # Seg Neutrophils # Man Lymphocytes # (Manual) Monocytes # (Manual) Eosinophils # (Manual) Basophils # (Manual) PT INR Fibrinogen dRVVT Confirm Interp Factor V Activity POC ABG pH POC ABG pCO2 POC ABG pO2 ABG pO2 ABG HCO3 ABG Base Excess ABG Hemoglobin Oxyhemoglobin Sodium Potassium Chloride Carbon Dioxide BUN 101 H Creatinine 2.0 H Glucose 102 H POC Glucose 115 H 132 H Lactic Acid Calcium 10.6 H Ionized Calcium Phosphorus Magnesium Direct Bilirubin AST ALT Alkaline Phosphatase 199 H Lactate Dehydrogenase Troponin T C-Reactive Protein Total Protein Albumin 1.4 L Prealbumin Triglycerides Cholesterol LDL Cholesterol Direct HDL Cholesterol 25-OH Vitamin D Total PTH Intact Urine pH Urine WBC (Auto) Urine Creatinine Urine Total Protein Fluid Total Protein Vancomycin Trough Rheumatoid Factor Complement C4 Miscellaneous Test Crossmatch 02/06/17 02/06/17 02/07/17 17:41 23:32 05:04 WBC RBC Hgb Hct MCV MCH MCHC RDW Plt Count Lymph % (Auto) [place] % (Auto) Lymph # [place] # Baso # Seg Neutrophils % Seg Neuts % (Manual) Lymphocytes % (Manual) Monocytes % (Manual) Eosinophils % (Manual) Basophils % (Manual) Nucleated RBC % Seg Neutrophils # Seg Neutrophils # Man Lymphocytes # (Manual) Monocytes # (Manual) Eosinophils # (Manual) Basophils # (Manual) PT INR Fibrinogen dRVVT Confirm Interp Factor V Activity POC ABG pH POC ABG pCO2 POC ABG pO2 ABG pO2 ABG HCO3 ABG Base Excess ABG Hemoglobin Oxyhemoglobin Sodium Potassium Chloride Carbon Dioxide BUN Creatinine Glucose POC Glucose 134 H 128 H 119 H Lactic Acid Calcium Ionized Calcium Phosphorus Magnesium Direct Bilirubin AST ALT Alkaline Phosphatase Lactate Dehydrogenase Troponin T C-Reactive Protein Total Protein Albumin Prealbumin Triglycerides Cholesterol LDL Cholesterol Direct HDL Cholesterol 25-OH Vitamin D Total PTH Intact Urine pH Urine WBC (Auto) Urine Creatinine Urine Total Protein Fluid Total Protein Vancomycin Trough Rheumatoid Factor Complement C4 Miscellaneous Test Crossmatch 02/07/17 02/07/17 02/07/17 06:30 11:20 17:13 WBC RBC Hgb Hct MCV MCH MCHC RDW Plt Count Lymph % (Auto) [place] % (Auto) Lymph # [place] # Baso # Seg Neutrophils % Seg Neuts % (Manual) Lymphocytes % (Manual) Monocytes % (Manual) Eosinophils % (Manual) Basophils % (Manual) Nucleated RBC % Seg Neutrophils # Seg Neutrophils # Man Lymphocytes # (Manual) Monocytes # (Manual) Eosinophils # (Manual) Basophils # (Manual) PT INR Fibrinogen dRVVT Confirm Interp Factor V Activity POC ABG pH POC ABG pCO2 POC ABG pO2 ABG pO2 ABG HCO3 ABG Base Excess ABG Hemoglobin Oxyhemoglobin Sodium Potassium 3.4 L Chloride Carbon Dioxide BUN 69 H Creatinine 1.5 H Glucose 105 H POC Glucose 117 H 110 H Lactic Acid Calcium Ionized Calcium Phosphorus Magnesium 1.50 L Direct Bilirubin AST ALT Alkaline Phosphatase Lactate Dehydrogenase Troponin T C-Reactive Protein Total Protein Albumin Prealbumin Triglycerides Cholesterol LDL Cholesterol Direct HDL Cholesterol 25-OH Vitamin D Total PTH Intact Urine pH Urine WBC (Auto) Urine Creatinine Urine Total Protein Fluid Total Protein Vancomycin Trough Rheumatoid Factor Complement C4 Miscellaneous Test Crossmatch 02/07/17 02/08/17 02/08/17 20:47 04:00 11:43 WBC RBC Hgb Hct MCV MCH MCHC RDW Plt Count Lymph % (Auto) [place] % (Auto) Lymph # [place] # Baso # Seg Neutrophils % Seg Neuts % (Manual) Lymphocytes % (Manual) Monocytes % (Manual) Eosinophils % (Manual) Basophils % (Manual) Nucleated RBC % Seg Neutrophils # Seg Neutrophils # Man Lymphocytes # (Manual) Monocytes # (Manual) Eosinophils # (Manual) Basophils # (Manual) PT INR Fibrinogen dRVVT Confirm Interp Factor V Activity POC ABG pH POC ABG pCO2 POC ABG pO2 ABG pO2 ABG HCO3 ABG Base Excess ABG Hemoglobin Oxyhemoglobin Sodium Potassium Chloride Carbon Dioxide BUN 86 H Creatinine 1.7 H Glucose POC Glucose 115 H 122 H Lactic Acid Calcium Ionized Calcium Phosphorus Magnesium 1.60 L Direct Bilirubin AST ALT Alkaline Phosphatase Lactate Dehydrogenase Troponin T C-Reactive Protein Total Protein Albumin Prealbumin Triglycerides Cholesterol LDL Cholesterol Direct HDL Cholesterol 25-OH Vitamin D Total PTH Intact Urine pH Urine WBC (Auto) Urine Creatinine Urine Total Protein Fluid Total Protein Vancomycin Trough Rheumatoid Factor Complement C4 Miscellaneous Test Crossmatch 02/08/17 02/09/17 02/09/17 17:36 05:44 11:30 WBC RBC Hgb Hct MCV MCH MCHC RDW Plt Count Lymph % (Auto) [place] % (Auto) Lymph # [place] # Baso # Seg Neutrophils % Seg Neuts % (Manual) Lymphocytes % (Manual) Monocytes % (Manual) Eosinophils % (Manual) Basophils % (Manual) Nucleated RBC % Seg Neutrophils # Seg Neutrophils # Man Lymphocytes # (Manual) Monocytes # (Manual) Eosinophils # (Manual) Basophils # (Manual) PT INR Fibrinogen dRVVT Confirm Interp Factor V Activity POC ABG pH POC ABG pCO2 POC ABG pO2 ABG pO2 ABG HCO3 ABG Base Excess ABG Hemoglobin Oxyhemoglobin Sodium Potassium Chloride Carbon Dioxide BUN Creatinine Glucose POC Glucose 125 H 117 H 120 H Lactic Acid Calcium Ionized Calcium Phosphorus Magnesium Direct Bilirubin AST ALT Alkaline Phosphatase Lactate Dehydrogenase Troponin T C-Reactive Protein Total Protein Albumin Prealbumin Triglycerides Cholesterol LDL Cholesterol Direct HDL Cholesterol 25-OH Vitamin D Total PTH Intact Urine pH Urine WBC (Auto) Urine Creatinine Urine Total Protein Fluid Total Protein Vancomycin Trough Rheumatoid Factor Complement C4 Miscellaneous Test Crossmatch 02/09/17 02/10/1717 23:45 05:45 05:50 WBC RBC Hgb Hct MCV MCH MCHC RDW Plt Count Lymph % (Auto) [place] % (Auto) Lymph # [place] # Baso # Seg Neutrophils % Seg Neuts % (Manual) Lymphocytes % (Manual) Monocytes % (Manual) Eosinophils % (Manual) Basophils % (Manual) Nucleated RBC % Seg Neutrophils # Seg Neutrophils # Man Lymphocytes # (Manual) Monocytes # (Manual) Eosinophils # (Manual) Basophils # (Manual) PT INR Fibrinogen dRVVT Confirm Interp Factor V Activity POC ABG pH POC ABG pCO2 POC ABG pO2 ABG pO2 ABG HCO3 ABG Base Excess ABG Hemoglobin Oxyhemoglobin Sodium Potassium Chloride Carbon Dioxide BUN 85 H Creatinine 1.8 H Glucose 109 H POC Glucose 114 H 189 H Lactic Acid Calcium Ionized Calcium Phosphorus Magnesium 2.50 H Direct Bilirubin AST ALT Alkaline Phosphatase Lactate Dehydrogenase Troponin T C-Reactive Protein Total Protein Albumin Prealbumin Triglycerides Cholesterol LDL Cholesterol Direct HDL Cholesterol 25-OH Vitamin D Total PTH Intact Urine pH Urine WBC (Auto) Urine Creatinine Urine Total Protein Fluid Total Protein Vancomycin Trough Rheumatoid Factor Complement C4 Miscellaneous Test Crossmatch 02/10/17 02/10/17 02/10/17 05:51 11:55 17:42 WBC RBC Hgb Hct MCV MCH MCHC RDW Plt Count Lymph % (Auto) [place] % (Auto) Lymph # [place] # Baso # Seg Neutrophils % Seg Neuts % (Manual) Lymphocytes % (Manual) Monocytes % (Manual) Eosinophils % (Manual) Basophils % (Manual) Nucleated RBC % Seg Neutrophils # Seg Neutrophils # Man Lymphocytes # (Manual) Monocytes # (Manual) Eosinophils # (Manual) Basophils # (Manual) PT INR Fibrinogen dRVVT Confirm Interp Factor V Activity POC ABG pH POC ABG pCO2 POC ABG pO2 ABG pO2 ABG HCO3 ABG Base Excess ABG Hemoglobin Oxyhemoglobin Sodium Potassium Chloride Carbon Dioxide BUN Creatinine Glucose POC Glucose 106 H 146 H 132 H Lactic Acid Calcium Ionized Calcium Phosphorus Magnesium Direct Bilirubin AST ALT Alkaline Phosphatase Lactate Dehydrogenase Troponin T C-Reactive Protein Total Protein Albumin Prealbumin Triglycerides Cholesterol LDL Cholesterol Direct HDL Cholesterol 25-OH Vitamin D Total PTH Intact Urine pH Urine WBC (Auto) Urine Creatinine Urine Total Protein Fluid Total Protein Vancomycin Trough Rheumatoid Factor Complement C4 Miscellaneous Test Crossmatch 02/10/17 02/11/17 02/11/17 23:43 04:08 05:34 WBC RBC Hgb Hct MCV MCH MCHC RDW Plt Count Lymph % (Auto) [place] % (Auto) Lymph # [place] # Baso # Seg Neutrophils % Seg Neuts % (Manual) Lymphocytes % (Manual) Monocytes % (Manual) Eosinophils % (Manual) Basophils % (Manual) Nucleated RBC % Seg Neutrophils # Seg Neutrophils # Man Lymphocytes # (Manual) Monocytes # (Manual) Eosinophils # (Manual) Basophils # (Manual) PT INR Fibrinogen dRVVT Confirm Interp Factor V Activity POC ABG pH POC ABG pCO2 POC ABG pO2 ABG pO2 ABG HCO3 ABG Base Excess ABG Hemoglobin Oxyhemoglobin Sodium 136 L Potassium Chloride Carbon Dioxide BUN 65 H Creatinine 1.7 H Glucose 105 H POC Glucose 130 H 113 H Lactic Acid Calcium Ionized Calcium Phosphorus Magnesium Direct Bilirubin AST ALT Alkaline Phosphatase Lactate Dehydrogenase Troponin T C-Reactive Protein Total Protein Albumin Prealbumin Triglycerides Cholesterol LDL Cholesterol Direct HDL Cholesterol 25-OH Vitamin D Total PTH Intact Urine pH Urine WBC (Auto) Urine Creatinine Urine Total Protein Fluid Total Protein Vancomycin Trough Rheumatoid Factor Complement C4 Miscellaneous Test Crossmatch 02/11/17 02/11/17 02/12/17 11:56 23:18 06:19 WBC RBC Hgb Hct MCV MCH MCHC RDW Plt Count Lymph % (Auto) [place] % (Auto) Lymph # [place] # Baso # Seg Neutrophils % Seg Neuts % (Manual) Lymphocytes % (Manual) Monocytes % (Manual) Eosinophils % (Manual) Basophils % (Manual) Nucleated RBC % Seg Neutrophils # Seg Neutrophils # Man Lymphocytes # (Manual) Monocytes # (Manual) Eosinophils # (Manual) Basophils # (Manual) PT INR Fibrinogen dRVVT Confirm Interp Factor V Activity POC ABG pH POC ABG pCO2 POC ABG pO2 ABG pO2 ABG HCO3 ABG Base Excess ABG Hemoglobin Oxyhemoglobin Sodium 136 L Potassium Chloride 97.1 L Carbon Dioxide BUN 93 H Creatinine 2.4 H Glucose POC Glucose 126 H 119 H Lactic Acid Calcium 11.0 H Ionized Calcium Phosphorus Magnesium Direct Bilirubin AST ALT Alkaline Phosphatase Lactate Dehydrogenase Troponin T C-Reactive Protein Total Protein Albumin Prealbumin Triglycerides Cholesterol LDL Cholesterol Direct HDL Cholesterol 25-OH Vitamin D Total PTH Intact Urine pH Urine WBC (Auto) Urine Creatinine Urine Total Protein Fluid Total Protein Vancomycin Trough Rheumatoid Factor Complement C4 Miscellaneous Test Crossmatch 02/12/17 02/12/17 02/12/17 08:00 10:25 11:42 WBC 15.4 H RBC 2.63 L Hgb 6.9 L Hct 22.6 L MCV MCH 26 L MCHC RDW 20.5 H Plt Count Lymph % (Auto) [place] % (Auto) Lymph # [place] # Baso # Seg Neutrophils % Seg Neuts % (Manual) Lymphocytes % (Manual) Monocytes % (Manual) Eosinophils % (Manual) Basophils % (Manual) Nucleated RBC % Seg Neutrophils # Seg Neutrophils # Man Lymphocytes # (Manual) Monocytes # (Manual) Eosinophils # (Manual) Basophils # (Manual) PT INR Fibrinogen dRVVT Confirm Interp Factor V Activity POC ABG pH POC ABG pCO2 POC ABG pO2 ABG pO2 ABG HCO3 ABG Base Excess ABG Hemoglobin Oxyhemoglobin Sodium Potassium Chloride Carbon Dioxide BUN Creatinine Glucose POC Glucose 142 H Lactic Acid Calcium Ionized Calcium Phosphorus Magnesium Direct Bilirubin AST ALT Alkaline Phosphatase Lactate Dehydrogenase Troponin T C-Reactive Protein Total Protein Albumin Prealbumin Triglycerides Cholesterol LDL Cholesterol Direct HDL Cholesterol 25-OH Vitamin D Total PTH Intact Urine pH Urine WBC (Auto) Urine Creatinine Urine Total Protein Fluid Total Protein Vancomycin Trough Rheumatoid Factor Complement C4 Miscellaneous Test Crossmatch See Detail 02/12/17 02/13/17 02/13/17 18:04 00:04 05:00 WBC RBC Hgb Hct MCV MCH MCHC RDW Plt Count Lymph % (Auto) [place] % (Auto) Lymph # [place] # Baso # Seg Neutrophils % Seg Neuts % (Manual) Lymphocytes % (Manual) Monocytes % (Manual) Eosinophils % (Manual) Basophils % (Manual) Nucleated RBC % Seg Neutrophils # Seg Neutrophils # Man Lymphocytes # (Manual) Monocytes # (Manual) Eosinophils # (Manual) Basophils # (Manual) PT INR Fibrinogen dRVVT Confirm Interp Factor V Activity POC ABG pH POC ABG pCO2 POC ABG pO2 ABG pO2 ABG HCO3 ABG Base Excess ABG Hemoglobin Oxyhemoglobin Sodium 134 L Potassium Chloride 96.1 L Carbon Dioxide 20 L BUN 125 H Creatinine 3.0 H Glucose 111 H POC Glucose 135 H 109 H Lactic Acid Calcium 11.3 H Ionized Calcium Phosphorus Magnesium Direct Bilirubin AST ALT Alkaline Phosphatase Lactate Dehydrogenase Troponin T C-Reactive Protein Total Protein Albumin Prealbumin Triglycerides Cholesterol LDL Cholesterol Direct HDL Cholesterol 25-OH Vitamin D Total PTH Intact Urine pH Urine WBC (Auto) Urine Creatinine Urine Total Protein Fluid Total Protein Vancomycin Trough Rheumatoid Factor Complement C4 Miscellaneous Test Crossmatch 02/13/17 02/13/17 02/13/17 05:00 05:28 12:03 WBC 11.9 H RBC 2.92 L Hgb 7.8 L Hct 25.2 L MCV MCH 27 L MCHC RDW 19.3 H Plt Count Lymph % (Auto) [place] % (Auto) Lymph # [place] # Baso # Seg Neutrophils % Seg Neuts % (Manual) Lymphocytes % (Manual) Monocytes % (Manual) Eosinophils % (Manual) Basophils % (Manual) Nucleated RBC % Seg Neutrophils # Seg Neutrophils # Man Lymphocytes # (Manual) Monocytes # (Manual) Eosinophils # (Manual) Basophils # (Manual) PT INR Fibrinogen dRVVT Confirm Interp Factor V Activity POC ABG pH POC ABG pCO2 POC ABG pO2 ABG pO2 ABG HCO3 ABG Base Excess ABG Hemoglobin Oxyhemoglobin Sodium Potassium Chloride Carbon Dioxide BUN Creatinine Glucose POC Glucose 124 H 160 H Lactic Acid Calcium Ionized Calcium Phosphorus Magnesium Direct Bilirubin AST ALT Alkaline Phosphatase Lactate Dehydrogenase Troponin T C-Reactive Protein Total Protein Albumin Prealbumin Triglycerides Cholesterol LDL Cholesterol Direct HDL Cholesterol 25-OH Vitamin D Total PTH Intact Urine pH Urine WBC (Auto) Urine Creatinine Urine Total Protein Fluid Total Protein Vancomycin Trough Rheumatoid Factor Complement C4 Miscellaneous Test Crossmatch 02/13/17 02/14/17 02/14/17 18:09 06:16 08:08 WBC 15.2 H RBC 2.97 L Hgb 8.1 L Hct 26.3 L MCV MCH MCHC RDW 19.3 H Plt Count Lymph % (Auto) [place] % (Auto) Lymph # [place] # Baso # Seg Neutrophils % Seg Neuts % (Manual) Lymphocytes % (Manual) Monocytes % (Manual) Eosinophils % (Manual) Basophils % (Manual) Nucleated RBC % Seg Neutrophils # Seg Neutrophils # Man Lymphocytes # (Manual) Monocytes # (Manual) Eosinophils # (Manual) Basophils # (Manual) PT INR Fibrinogen dRVVT Confirm Interp Factor V Activity POC ABG pH POC ABG pCO2 POC ABG pO2 ABG pO2 ABG HCO3 ABG Base Excess ABG Hemoglobin Oxyhemoglobin Sodium Potassium Chloride Carbon Dioxide BUN Creatinine Glucose POC Glucose 110 H 112 H Lactic Acid Calcium Ionized Calcium Phosphorus Magnesium Direct Bilirubin AST ALT Alkaline Phosphatase Lactate Dehydrogenase Troponin T C-Reactive Protein Total Protein Albumin Prealbumin Triglycerides Cholesterol LDL Cholesterol Direct HDL Cholesterol 25-OH Vitamin D Total PTH Intact Urine pH Urine WBC (Auto) Urine Creatinine Urine Total Protein Fluid Total Protein Vancomycin Trough Rheumatoid Factor Complement C4 Miscellaneous Test Crossmatch 02/14/17 02/14/17 02/15/17 08:08 17:41 04:15 WBC RBC Hgb Hct MCV MCH MCHC RDW Plt Count Lymph % (Auto) [place] % (Auto) Lymph # [place] # Baso # Seg Neutrophils % Seg Neuts % (Manual) Lymphocytes % (Manual) Monocytes % (Manual) Eosinophils % (Manual) Basophils % (Manual) Nucleated RBC % Seg Neutrophils # Seg Neutrophils # Man Lymphocytes # (Manual) Monocytes # (Manual) Eosinophils # (Manual) Basophils # (Manual) PT INR Fibrinogen dRVVT Confirm Interp Factor V Activity POC ABG pH POC ABG pCO2 POC ABG pO2 ABG pO2 ABG HCO3 ABG Base Excess ABG Hemoglobin Oxyhemoglobin Sodium Potassium Chloride Carbon Dioxide 18 L 21 L BUN 79 H 113 H Creatinine 2.1 H 2.8 H Glucose POC Glucose 118 H Lactic Acid Calcium 10.7 H Ionized Calcium Phosphorus 1.70 L D Magnesium 1.60 L Direct Bilirubin AST ALT Alkaline Phosphatase Lactate Dehydrogenase Troponin T C-Reactive Protein Total Protein Albumin Prealbumin Triglycerides Cholesterol LDL Cholesterol Direct HDL Cholesterol 25-OH Vitamin D Total PTH Intact Urine pH Urine WBC (Auto) Urine Creatinine Urine Total Protein Fluid Total Protein Vancomycin Trough Rheumatoid Factor Complement C4 Miscellaneous Test Crossmatch 02/15/17 02/15/17 02/15/17 06:06 11:31 17:52 WBC RBC Hgb Hct MCV MCH MCHC RDW Plt Count Lymph % (Auto) [place] % (Auto) Lymph # [place] # Baso # Seg Neutrophils % Seg Neuts % (Manual) Lymphocytes % (Manual) Monocytes % (Manual) Eosinophils % (Manual) Basophils % (Manual) Nucleated RBC % Seg Neutrophils # Seg Neutrophils # Man Lymphocytes # (Manual) Monocytes # (Manual) Eosinophils # (Manual) Basophils # (Manual) PT INR Fibrinogen dRVVT Confirm Interp Factor V Activity POC ABG pH POC ABG pCO2 POC ABG pO2 ABG pO2 ABG HCO3 ABG Base Excess ABG Hemoglobin Oxyhemoglobin Sodium Potassium Chloride Carbon Dioxide BUN Creatinine Glucose POC Glucose 115 H 129 H 201 H Lactic Acid Calcium Ionized Calcium Phosphorus Magnesium Direct Bilirubin AST ALT Alkaline Phosphatase Lactate Dehydrogenase Troponin T C-Reactive Protein Total Protein Albumin Prealbumin Triglycerides Cholesterol LDL Cholesterol Direct HDL Cholesterol 25-OH Vitamin D Total PTH Intact Urine pH Urine WBC (Auto) Urine Creatinine Urine Total Protein Fluid Total Protein Vancomycin Trough Rheumatoid Factor Complement C4 Miscellaneous Test Crossmatch 02/15/17 02/15/17 02/15/17 19:08 19:08 19:08 WBC RBC Hgb Hct MCV MCH MCHC RDW Plt Count Lymph % (Auto) [place] % (Auto) Lymph # [place] # Baso # Seg Neutrophils % Seg Neuts % (Manual) Lymphocytes % (Manual) Monocytes % (Manual) Eosinophils % (Manual) Basophils % (Manual) Nucleated RBC % Seg Neutrophils # Seg Neutrophils # Man Lymphocytes # (Manual) Monocytes # (Manual) Eosinophils # (Manual) Basophils # (Manual) PT INR Fibrinogen dRVVT Confirm Interp Factor V Activity POC ABG pH POC ABG pCO2 POC ABG pO2 ABG pO2 ABG HCO3 ABG Base Excess ABG Hemoglobin Oxyhemoglobin Sodium Potassium Chloride Carbon Dioxide BUN Creatinine Glucose POC Glucose Lactic Acid Calcium Ionized Calcium 6.0 H Phosphorus Magnesium Direct Bilirubin AST ALT Alkaline Phosphatase Lactate Dehydrogenase Troponin T C-Reactive Protein Total Protein Albumin Prealbumin Triglycerides Cholesterol LDL Cholesterol Direct HDL Cholesterol 25-OH Vitamin D Total 13 L PTH Intact 10.88 L Urine pH Urine WBC (Auto) Urine Creatinine Urine Total Protein Fluid Total Protein Vancomycin Trough Rheumatoid Factor Complement C4 Miscellaneous Test Crossmatch 02/16/17 02/16/17 02/16/17 05:12 06:00 12:39 WBC RBC Hgb Hct MCV MCH MCHC RDW Plt Count Lymph % (Auto) [place] % (Auto) Lymph # [place] # Baso # Seg Neutrophils % Seg Neuts % (Manual) Lymphocytes % (Manual) Monocytes % (Manual) Eosinophils % (Manual) Basophils % (Manual) Nucleated RBC % Seg Neutrophils # Seg Neutrophils # Man Lymphocytes # (Manual) Monocytes # (Manual) Eosinophils # (Manual) Basophils # (Manual) PT INR Fibrinogen dRVVT Confirm Interp Factor V Activity POC ABG pH POC ABG pCO2 POC ABG pO2 ABG pO2 ABG HCO3 ABG Base Excess ABG Hemoglobin Oxyhemoglobin Sodium Potassium Chloride Carbon Dioxide BUN 74 H Creatinine 1.7 H Glucose 102 H POC Glucose 125 H 109 H Lactic Acid Calcium Ionized Calcium Phosphorus 2.10 L D Magnesium Direct Bilirubin AST ALT Alkaline Phosphatase Lactate Dehydrogenase Troponin T C-Reactive Protein Total Protein Albumin Prealbumin Triglycerides Cholesterol LDL Cholesterol Direct HDL Cholesterol 25-OH Vitamin D Total PTH Intact Urine pH Urine WBC (Auto) Urine Creatinine Urine Total Protein Fluid Total Protein Vancomycin Trough Rheumatoid Factor Complement C4 Miscellaneous Test Crossmatch 02/16/17 02/16/17 02/17/17 17:31 23:57 05:30 WBC RBC Hgb Hct MCV MCH MCHC RDW Plt Count Lymph % (Auto) [place] % (Auto) Lymph # [place] # Baso # Seg Neutrophils % Seg Neuts % (Manual) Lymphocytes % (Manual) Monocytes % (Manual) Eosinophils % (Manual) Basophils % (Manual) Nucleated RBC % Seg Neutrophils # Seg Neutrophils # Man Lymphocytes # (Manual) Monocytes # (Manual) Eosinophils # (Manual) Basophils # (Manual) PT INR Fibrinogen dRVVT Confirm Interp Factor V Activity POC ABG pH POC ABG pCO2 POC ABG pO2 ABG pO2 ABG HCO3 ABG Base Excess ABG Hemoglobin Oxyhemoglobin Sodium Potassium Chloride Carbon Dioxide BUN Creatinine Glucose POC Glucose 106 H 127 H 122 H Lactic Acid Calcium Ionized Calcium Phosphorus Magnesium Direct Bilirubin AST ALT Alkaline Phosphatase Lactate Dehydrogenase Troponin T C-Reactive Protein Total Protein Albumin Prealbumin Triglycerides Cholesterol LDL Cholesterol Direct HDL Cholesterol 25-OH Vitamin D Total PTH Intact Urine pH Urine WBC (Auto) Urine Creatinine Urine Total Protein Fluid Total Protein Vancomycin Trough Rheumatoid Factor Complement C4 Miscellaneous Test Crossmatch 02/17/17 02/17/17 02/17/17 06:00 12:17 17:57 WBC RBC Hgb Hct MCV MCH MCHC RDW Plt Count Lymph % (Auto) [place] % (Auto) Lymph # [place] # Baso # Seg Neutrophils % Seg Neuts % (Manual) Lymphocytes % (Manual) Monocytes % (Manual) Eosinophils % (Manual) Basophils % (Manual) Nucleated RBC % Seg Neutrophils # Seg Neutrophils # Man Lymphocytes # (Manual) Monocytes # (Manual) Eosinophils # (Manual) Basophils # (Manual) PT INR Fibrinogen dRVVT Confirm Interp Factor V Activity POC ABG pH POC ABG pCO2 POC ABG pO2 ABG pO2 ABG HCO3 ABG Base Excess ABG Hemoglobin Oxyhemoglobin Sodium Potassium Chloride Carbon Dioxide BUN 94 H Creatinine 2.3 H Glucose 106 H POC Glucose 173 H 140 H Lactic Acid Calcium Ionized Calcium Phosphorus Magnesium Direct Bilirubin AST ALT Alkaline Phosphatase Lactate Dehydrogenase Troponin T C-Reactive Protein Total Protein Albumin Prealbumin Triglycerides Cholesterol LDL Cholesterol Direct HDL Cholesterol 25-OH Vitamin D Total PTH Intact Urine pH Urine WBC (Auto) Urine Creatinine Urine Total Protein Fluid Total Protein Vancomycin Trough Rheumatoid Factor Complement C4 Miscellaneous Test Crossmatch 02/18/17 02/18/1717 00:20 05:30 06:14 WBC RBC Hgb Hct MCV MCH MCHC RDW Plt Count Lymph % (Auto) [place] % (Auto) Lymph # [place] # Baso # Seg Neutrophils % Seg Neuts % (Manual) Lymphocytes % (Manual) Monocytes % (Manual) Eosinophils % (Manual) Basophils % (Manual) Nucleated RBC % Seg Neutrophils # Seg Neutrophils # Man Lymphocytes # (Manual) Monocytes # (Manual) Eosinophils # (Manual) Basophils # (Manual) PT INR Fibrinogen dRVVT Confirm Interp Factor V Activity POC ABG pH POC ABG pCO2 POC ABG pO2 ABG pO2 ABG HCO3 ABG Base Excess ABG Hemoglobin Oxyhemoglobin Sodium 136 L Potassium Chloride 97.5 L Carbon Dioxide BUN 73 H Creatinine 1.9 H Glucose POC Glucose 132 H 106 H Lactic Acid Calcium Ionized Calcium Phosphorus Magnesium Direct Bilirubin AST ALT Alkaline Phosphatase Lactate Dehydrogenase Troponin T C-Reactive Protein Total Protein Albumin Prealbumin Triglycerides Cholesterol LDL Cholesterol Direct HDL Cholesterol 25-OH Vitamin D Total PTH Intact Urine pH Urine WBC (Auto) Urine Creatinine Urine Total Protein Fluid Total Protein Vancomycin Trough Rheumatoid Factor Complement C4 Miscellaneous Test Crossmatch 02/18/17 02/18/17 02/18/17 09:51 11:32 17:59 WBC 13.1 H RBC 2.77 L Hgb 7.6 L Hct 23.9 L MCV MCH MCHC RDW 19.0 H Plt Count Lymph % (Auto) [place] % (Auto) 11.1 H Lymph # [place] # 1.5 H Baso # Seg Neutrophils % Seg Neuts % (Manual) Lymphocytes % (Manual) Monocytes % (Manual) Eosinophils % (Manual) Basophils % (Manual) Nucleated RBC % Seg Neutrophils # 9.1 H Seg Neutrophils # Man Lymphocytes # (Manual) Monocytes # (Manual) Eosinophils # (Manual) Basophils # (Manual) PT INR Fibrinogen dRVVT Confirm Interp Factor V Activity POC ABG pH POC ABG pCO2 POC ABG pO2 ABG pO2 ABG HCO3 ABG Base Excess ABG Hemoglobin Oxyhemoglobin Sodium Potassium Chloride Carbon Dioxide BUN Creatinine Glucose POC Glucose 123 H 119 H Lactic Acid Calcium Ionized Calcium Phosphorus Magnesium Direct Bilirubin AST ALT Alkaline Phosphatase Lactate Dehydrogenase Troponin T C-Reactive Protein Total Protein Albumin Prealbumin Triglycerides Cholesterol LDL Cholesterol Direct HDL Cholesterol 25-OH Vitamin D Total PTH Intact Urine pH Urine WBC (Auto) Urine Creatinine Urine Total Protein Fluid Total Protein Vancomycin Trough Rheumatoid Factor Complement C4 Miscellaneous Test Crossmatch 02/18/17 02/19/17 02/19/17 23:47 05:36 09:45 WBC RBC Hgb Hct MCV MCH 27 L MCHC RDW 19.2 H Plt Count Lymph % (Auto) [place] % (Auto) Lymph # [place] # Baso # Seg Neutrophils % Seg Neuts % (Manual) Lymphocytes % (Manual) Monocytes % (Manual) Eosinophils % (Manual) Basophils % (Manual) Nucleated RBC % Seg Neutrophils # Seg Neutrophils # Man Lymphocytes # (Manual) Monocytes # (Manual) Eosinophils # (Manual) Basophils # (Manual) PT INR Fibrinogen dRVVT Confirm Interp Factor V Activity POC ABG pH POC ABG pCO2 POC ABG pO2 ABG pO2 ABG HCO3 ABG Base Excess ABG Hemoglobin Oxyhemoglobin Sodium Potassium Chloride Carbon Dioxide BUN Creatinine Glucose POC Glucose 110 H 121 H Lactic Acid Calcium Ionized Calcium Phosphorus Magnesium Direct Bilirubin AST ALT Alkaline Phosphatase Lactate Dehydrogenase Troponin T C-Reactive Protein Total Protein Albumin Prealbumin Triglycerides Cholesterol LDL Cholesterol Direct HDL Cholesterol 25-OH Vitamin D Total PTH Intact Urine pH Urine WBC (Auto) Urine Creatinine Urine Total Protein Fluid Total Protein Vancomycin Trough Rheumatoid Factor Complement C4 Miscellaneous Test Crossmatch 02/19/17 02/20/17 02/20/17 09:45 00:10 06:15 WBC RBC Hgb Hct MCV MCH MCHC RDW Plt Count Lymph % (Auto) [place] % (Auto) Lymph # [place] # Baso # Seg Neutrophils % Seg Neuts % (Manual) Lymphocytes % (Manual) Monocytes % (Manual) Eosinophils % (Manual) Basophils % (Manual) Nucleated RBC % Seg Neutrophils # Seg Neutrophils # Man Lymphocytes # (Manual) Monocytes # (Manual) Eosinophils # (Manual) Basophils # (Manual) PT INR Fibrinogen dRVVT Confirm Interp Factor V Activity POC ABG pH POC ABG pCO2 POC ABG pO2 ABG pO2 ABG HCO3 ABG Base Excess ABG Hemoglobin Oxyhemoglobin Sodium 136 L Potassium 5.1 H Chloride 97.6 L Carbon Dioxide 20 L 18 L BUN 110 H 135 H Creatinine 2.6 H 3.2 H Glucose 106 H 110 H POC Glucose 117 H Lactic Acid Calcium Ionized Calcium Phosphorus 4.70 H D 5.60 H Magnesium Direct Bilirubin AST ALT Alkaline Phosphatase Lactate Dehydrogenase Troponin T C-Reactive Protein Total Protein Albumin Prealbumin Triglycerides Cholesterol LDL Cholesterol Direct HDL Cholesterol 25-OH Vitamin D Total PTH Intact Urine pH Urine WBC (Auto) Urine Creatinine Urine Total Protein Fluid Total Protein Vancomycin Trough Rheumatoid Factor Complement C4 Miscellaneous Test Crossmatch 02/20/17 02/20/17 02/21/17 11:30 17:51 00:14 WBC RBC Hgb Hct MCV MCH MCHC RDW Plt Count Lymph % (Auto) [place] % (Auto) Lymph # [place] # Baso # Seg Neutrophils % Seg Neuts % (Manual) Lymphocytes % (Manual) Monocytes % (Manual) Eosinophils % (Manual) Basophils % (Manual) Nucleated RBC % Seg Neutrophils # Seg Neutrophils # Man Lymphocytes # (Manual) Monocytes # (Manual) Eosinophils # (Manual) Basophils # (Manual) PT INR Fibrinogen dRVVT Confirm Interp Factor V Activity POC ABG pH POC ABG pCO2 POC ABG pO2 ABG pO2 ABG HCO3 ABG Base Excess ABG Hemoglobin Oxyhemoglobin Sodium Potassium Chloride Carbon Dioxide BUN Creatinine Glucose POC Glucose 173 H 133 H 125 H Lactic Acid Calcium Ionized Calcium Phosphorus Magnesium Direct Bilirubin AST ALT Alkaline Phosphatase Lactate Dehydrogenase Troponin T C-Reactive Protein Total Protein Albumin Prealbumin Triglycerides Cholesterol LDL Cholesterol Direct HDL Cholesterol 25-OH Vitamin D Total PTH Intact Urine pH Urine WBC (Auto) Urine Creatinine Urine Total Protein Fluid Total Protein Vancomycin Trough Rheumatoid Factor Complement C4 Miscellaneous Test Crossmatch 02/21/17 02/21/17 04:09 05:03 WBC RBC Hgb Hct MCV MCH MCHC RDW Plt Count Lymph % (Auto) [place] % (Auto) Lymph # [place] # Baso # Seg Neutrophils % Seg Neuts % (Manual) Lymphocytes % (Manual) Monocytes % (Manual) Eosinophils % (Manual) Basophils % (Manual) Nucleated RBC % Seg Neutrophils # Seg Neutrophils # Man Lymphocytes # (Manual) Monocytes # (Manual) Eosinophils # (Manual) Basophils # (Manual) PT INR Fibrinogen dRVVT Confirm Interp Factor V Activity POC ABG pH POC ABG pCO2 POC ABG pO2 ABG pO2 ABG HCO3 ABG Base Excess ABG Hemoglobin Oxyhemoglobin Sodium 135 L Potassium Chloride Carbon Dioxide 20 L BUN 76 H Creatinine 2.0 H Glucose 125 H POC Glucose 134 H Lactic Acid Calcium Ionized Calcium Phosphorus Magnesium Direct Bilirubin AST ALT Alkaline Phosphatase Lactate Dehydrogenase Troponin T C-Reactive Protein Total Protein Albumin Prealbumin Triglycerides Cholesterol LDL Cholesterol Direct HDL Cholesterol 25-OH Vitamin D Total PTH Intact Urine pH Urine WBC (Auto) Urine Creatinine Urine Total Protein Fluid Total Protein Vancomycin Trough Rheumatoid Factor Complement C4 Miscellaneous Test Crossmatch Allied health notes reviewed: RT (On full ventilatory support, not tolerating PSV today)
[2017-02-21] MEDS: DIFLUCAN 200 MG/100 ML BAG IV SCH (15:00)
--- NOTE | 2017-02-21 16:21 | Progress Note ---
Assessment and Plan Assessment and plan: Patient is 46-year-old woman with a history of hypertension, diabetes, asthma, hyperlipidemia, chronic kidney disease and anxiety , who was brought in by family because, she couldn't get her words out, her face was also twisted, she was admitted for acute CVA and accelerated hypertension, she had a hx of poor adherence with her medications, and uncontrolled htn. Patient's SBP on admission was noted be greater than 260. TPA was started but this was discontinued after 5 minutes because her blood pressure became uncontrolled. The TPA was not initiated again because the patient was outside the TPA window. Fever obtain UA, UC, blood cx and CXR if continues to spike fever, will consult ID Status post cardiac arrest , 11/21/16 on Mechanical ventilation >96 hrs, >3 months Vent Dependant Respirtory failure secodnary to Anoxic Brain injury S/P Tracheostomy Severe Sepsis with septic shock Surgical wound infection/gram-negative sepsis/candidemia/peritonitis - On TPN ESRD - on HD - Cr 1.9 today Acute CVA with infarct - Neurology input appreciated - CT shows continued evolution of left MCA infarct with slight mass effect and edema, and there is no hemorrhage - PRINCE showed hyperdynamic with ef of 75%, neither clot nor septal defect seen - MRA Brain shows near complete occlusion of M2 and M3 of the left MCA - Repeat CT scan done on 09/11, shows stable findings - carotid doppler negative - Echo shows preserved systolic function but does show some left ventricular diastolic dysfunction - continue asa and statin Persistent vegetative state - This patient's needs placement at SNF - She was denied for LTACH Nosocomial acquired aspiration pneumonia/sepsis/UTI/PERITONITIS - Has been on multiple antibiotics, expect recurrent sepsis due to now known Bowel perforation not amendable to surgery due to clinical condition A. fib with RVR -On amio drip, cannot change to PO due to persistent nausea and vomiting Diabetes type 2. -Continue sliding-scale regular insulin and Accu-Cheks. Hyperlipidemia. Continue statin Severe Protein calorie Malnutrition/Adult failure to thrive - TPN Anemia requiring multiple transfusions/acute blood loss - currently stable - Check AM labs - Will transfuse if it is below 7 Sacral decubitus ulcer - Status post debridement -Wound vac in place Disposition. Very poor prognosis. DNR - The high probability of a clinically significant, sudden or life threatening deterioration of the [neurologic, CV] system(s) required my full and direct attention, intervention and personal management. The aggregate critical care time was [35] minutes. This time is in addition to time spent performing reported procedures but includes the following: [x] Data Review and interpretation [x] Patient assessment and monitoring of vital signs [x] Documentation [x] Medication orders and management History Interval history: patient seen and examined, remains unresponsive on the ventilator. febrile overnight, no vomiting was tachypneic and tachycardic overnight Hospitalist Physical - Physical exam Narrative exam: GEN: Ill appearing, trach, staring into space,, non purposeful movement NECK: SUPPLE, trach in place, ngt in place and to suction. CVS:Irregular Irregular with LUNGS/CHEST: NORMAL CHEST EXPANSION B, GOOD AIR ENTRY B, tachypena ABD: SOFT, no grimise on abdominal palpation, Ostomy bags at two side by side fistula site. GBS, NO REBOUND OR GUARDING, peg tube in place EXT/SKIN: NO SIGNIFICANT EDEMA BUT WITH UNSTAGEABLE SACRAL DECUB, wound vac inplace MSK: +spontaneous non purposeful movement NEURO: on a ventilator and unresponsive despite being off sedation PSY: Comatose, - Constitutional Vitals: Temp Pulse Resp BP Pulse Ox 98.4 F 107 H 25 H 123/71 100 02/21/17 12:50 02/21/17 12:00 02/21/17 13:13 02/21/17 12:00 02/21/17 12:00 General appearance: Present: no acute distress, well-nourished Results - Labs CBC & Chem 7: 02/19/17 09:45 02/21/17 04:09 Labs: Laboratory Last Values WBC 7.7 K/mm3 (4.5-11.0) 02/19/17 09:45 RBC 4.69 M/mm3 (3.65-5.03) 02/19/17 09:45 Hgb 12.7 gm/dl (10.1-14.3) D 02/19/17 09:45 Hct 40.2 % (30.3-42.9) D 02/19/17 09:45 MCV 86 fl (79-97) 02/19/17 09:45 MCH 27 pg (28-32) L 02/19/17 09:45 MCHC 32 % (30-34) 02/19/17 09:45 RDW 19.2 % (13.2-15.2) H 02/19/17 09:45 Plt Count 180 K/mm3 (140-440) 02/19/17 09:45 Lymph % (Auto) 18.5 % (13.4-35.0) 02/18/17 09:51 [place] % (Auto) 11.1 % (0.0-7.3) H 02/18/17 09:51 Eos % (Auto) 0.7 % (0.0-4.3) 02/18/17 09:51 Baso % (Auto) 0.3 % (0.0-1.8) 02/18/17 09:51 Lymph # 2.4 K/mm3 (1.2-5.4) 02/18/17 09:51 [place] # 1.5 K/mm3 (0.0-0.8) H 02/18/17 09:51 Eos # 0.1 K/mm3 (0.0-0.4) 02/18/17 09:51 Baso # 0.0 K/mm3 (0.0-0.1) 02/18/17 09:51 Add Manual Diff Complete 12/19/16 05:02 Total Counted 100 12/19/16 05:02 Seg Neutrophils % 69.4 % (40.0-70.0) 02/18/17 09:51 Seg Neuts % (Manual) 64.0 % (40.0-70.0) 12/19/16 05:02 Band Neutrophils % 15.0 % 12/19/16 05:02 Lymphocytes % (Manual) 13.0 % (13.4-35.0) L 12/19/16 05:02 Reactive Lymphs % (Man) 0 % 12/19/16 05:02 Monocytes % (Manual) 7.0 % (0.0-7.3) 12/19/16 05:02 Eosinophils % (Manual) 0 % (0.0-4.3) 12/19/16 05:02 Basophils % (Manual) 1.0 % (0.0-1.8) 12/19/16 05:02 Metamyelocytes % 0 % 12/19/16 05:02 Myelocytes % 0 % 12/19/16 05:02 Promyelocytes % 0 % 12/19/16 05:02 Blast Cells % 0 % 12/19/16 05:02 Nucleated RBC % 1.0 % (0.0-0.9) H 12/19/16 05:02 Seg Neutrophils # 9.1 K/mm3 (1.8-7.7) H 02/18/17 09:51 Seg Neutrophils # Man 12.9 K/mm3 (1.8-7.7) H 12/19/16 05:02 Band Neutrophils # 3.0 K/mm3 12/19/16 05:02 Lymphocytes # (Manual) 2.6 K/mm3 (1.2-5.4) 12/19/16 05:02 Abs React Lymphs (Man) 0.0 K/mm3 12/19/16 05:02 Monocytes # (Manual) 1.4 K/mm3 (0.0-0.8) H 12/19/16 05:02 Eosinophils # (Manual) 0.0 K/mm3 (0.0-0.4) 12/19/16 05:02 Basophils # (Manual) 0.2 K/mm3 (0.0-0.1) H 12/19/16 05:02 Metamyelocytes # 0.0 K/mm3 12/19/16 05:02 Myelocytes # 0.0 K/mm3 12/19/16 05:02 Promyelocytes # 0.0 K/mm3 12/19/16 05:02 Blast Cells # 0.0 K/mm3 12/19/16 05:02 Pathologist Review 09/13/16 04:00 WBC Morphology Not Reportable 12/19/16 05:02 Hypersegmented Neuts Not Reportable 12/19/16 05:02 Hyposegmented Neuts Not Reportable 12/19/16 05:02 Hypogranular Neuts Not Reportable 12/19/16 05:02 Smudge Cells Not Reportable 12/19/16 05:02 Toxic Granulation Not Reportable 12/19/16 05:02 Toxic Vacuolation Not Reportable 12/19/16 05:02 Dohle Bodies Not Reportable 12/19/16 05:02 Pelger-Huet Anomaly Not Reportable 12/19/16 05:02 Jasmina Rods Not Reportable 12/19/16 05:02 Platelet Estimate Consistent w auto 12/19/16 05:02 Clumped Platelets Not Reportable 12/19/16 05:02 Plt Clumps, EDTA Not Reportable 12/19/16 05:02 Large Platelets Not Reportable 12/19/16 05:02 Giant Platelets Not Reportable 12/19/16 05:02 Platelet Satelliting Not Reportable 12/19/16 05:02 Plt Morphology Comment Not Reportable 12/19/16 05:02 RBC Morphology Not Reportable 12/19/16 05:02 Dimorphic RBCs Not Reportable 12/19/16 05:02 Polychromasia Not Reportable 12/19/16 05:02 Hypochromasia Not Reportable 12/19/16 05:02 Poikilocytosis Not Reportable 12/19/16 05:02 Anisocytosis Not Reportable 12/19/16 05:02 Microcytosis Not Reportable 12/19/16 05:02 Macrocytosis Not Reportable 12/19/16 05:02 Spherocytes Not Reportable 12/19/16 05:02 Pappenheimer Bodies Not Reportable 12/19/16 05:02 Sickle Cells Not Reportable 12/19/16 05:02 Target Cells Few 12/19/16 05:02 Tear Drop Cells Not Reportable 12/19/16 05:02 Ovalocytes Not Reportable 12/19/16 05:02 Stomatocytes Rare 12/03/16 04:00 Helmet Cells Not Reportable 12/19/16 05:02 [place] Bodies Not Reportable 12/19/16 05:02 Joiner Rings Not Reportable 12/19/16 05:02 Chuck Cells Not Reportable 12/19/16 05:02 Bite Cells Not Reportable 12/19/16 05:02 Crenated Cell Not Reportable 12/19/16 05:02 Elliptocytes Not Reportable 12/19/16 05:02 Acanthocytes (Spur) Not Reportable 12/19/16 05:02 Rouleaux Not Reportable 12/19/16 05:02 Hemoglobin C Crystals Not Reportable 12/19/16 05:02 Schistocytes Not Reportable 12/19/16 05:02 Malaria parasites Not Reportable 12/19/16 05:02 ESR > 140.0 mm/Hr (0-20) 09/08/16 11:48 Jun Bodies Not Reportable 12/19/16 05:02 Hem Pathologist Commnt No 12/19/16 05:02 PT 15.4 Sec. (12.2-14.9) H 01/13/17 15:50 INR 1.16 (0.87-1.13) H 01/13/17 15:50 APTT 33.0 Sec. (24.2-36.6) 10/09/16 03:45 Thrombin Time 16.8 Sec. (15.1-19.6) 09/03/16 00:10 Fibrinogen 750 mg/dl (211-480) H 09/08/16 11:48 Lupus Anticoagulant see below 09/12/16 09:59 LA PTT Baseline See scanned report 09/12/16 09:59 dRVVT Confirm Interp Positive (Negative) H 09/12/16 09:59 dRVVT Screen 50:50 See scanned report 09/12/16 09:59 dRVVT Mix Interpret See scanned report 09/12/16 09:59 Protein C Antigen 122 % (70-140) 09/08/16 15:35 Free Protein S 97 % normal (50-147) 09/08/16 15:35 Total Protein S 109 % (70-140) 09/08/16 15:35 Antithrombin III Ag 100 % (80-120) 09/08/16 15:35 Heparin Anti-Xa, Unfract Negative (Negative) 09/29/16 13:35 Factor V Activity 182 % (65-150) H 09/08/16 15:35 POC ABG pH 7.436 (7.35-7.45) 01/20/17 12: ABG pH 7.450 pH Units (7.350-7.450) 12/05/16 Unknown POC ABG pCO2 35.3 (35-45) 01/20/17 12:17 ABG pCO2 29.6 mm Hg 12/05/16 Unknown POC ABG pO2 70 (80-105) L 01/20/17 12: ABG pO2 75.2 mm Hg (80.0-90.0) L 12/05/16 Unknown POC ABG HCO3 23.8 01/20/17 12:17 ABG HCO3 20.1 mmol/L (20.0-26.0) 12/05/16 Unknown POC ABG Total CO2 25 01/20/17 12:17 POC ABG O2 Sat 94 01/20/17 12:17 ABG O2 Saturation 96.8 % (95.0-99.0) 12/05/16 Unknown ABG O2 Content 9.9 (0.0-44) 12/05/16 Unknown POC ABG Base Excess 0 01/20/17 12:17 ABG Base Excess -3.4 mmol/L (-2.0-3.0) L 12/05/16 Unknown ABG Hemoglobin 7.4 gm/dl (12.0-16.0) L 12/05/16 Unknown ABG Carboxyhemoglobin 1.8 % (0.0-5.0) 12/05/16 Unknown ABG Methemoglobin 0.6 % (0.0-1.5) 12/05/16 Unknown Oxyhemoglobin 94.5 % (95.0-99.0) L 12/05/16 Unknown FiO2 30 % 01/20/17 12:17 Sodium 135 mmol/L (137-145) L 02/21/17 04:09 Potassium 4.0 mmol/L (3.6-5.0) D 02/21/17 04:09 Chloride 98.5 mmol/L (98-107) 02/21/17 04:09 Carbon Dioxide 20 mmol/L (22-30) L 02/21/17 04:09 Anion Gap 21 mmol/L 02/21/17 04:09 BUN 76 mg/dL (7-17) H 02/21/17 04:09 Creatinine 2.0 mg/dL (0.7-1.2) H 02/21/17 04:09 Estimated GFR 32 ml/min 02/21/17 04:09 BUN/Creatinine Ratio 38 % 02/21/17 04:09 Glucose 125 mg/dL (65-100) H 02/21/17 04:09 POC Glucose 139 (70-105) H 02/21/17 11:58 Osmolality 351 Mosm/kg 09/16/16 11:47 Lactic Acid 2.30 mmol/L (0.7-2.0) H* 01/09/17 08:22 Calcium 8.7 mg/dL (8.4-10.2) 02/21/17 04:09 Ionized Calcium 6.0 mg/dL (4.8-5.6) H 02/15/17 19:08 Phosphorus 3.20 mg/dL (2.5-4.5) D 02/21/17 04:09 Magnesium 1.70 mg/dL (1.7-2.3) 02/21/17 04:09 Total Bilirubin 0.40 mg/dL (0.1-1.2) 02/06/17 04:45 Direct Bilirubin 0.2 mg/dL (0-0.2) 01/28/17 04:00 Indirect Bilirubin 0.3 mg/dL 01/28/17 04:00 AST 29 units/L (5-40) 02/06/17 04:45 ALT 26 units/L (7-56) 02/06/17 04:45 Alkaline Phosphatase 199 units/L (35-129) H 02/06/17 04:45 Ammonia 27.0 umol/L (25-60) 09/07/16 08:37 Lactate Dehydrogenase 170 units/L (91-180) 01/13/17 15:50 Total Creatine Kinase 121 units/L (30-135) 09/29/16 20:12 CK-MB (CK-2) < 1.0 ng/mL (0.0-4.0) 09/29/16 20:12 CK-MB (CK-2) Rel Index 0.8 (0-4) 09/29/16 20:12 Troponin T 0.204 ng/mL (0.00-0.029) H* 09/29/16 20:12 C-Reactive Protein 8.10 mg/dL (0.00-1.30) H 01/31/17 11:12 Total Protein 6.7 g/dL (6.3-8.2) 02/06/17 04:45 Albumin 1.4 g/dL (3.9-5) L 02/06/17 04:45 Albumin/Globulin Ratio 0.3 % 02/06/17 04:45 Prealbumin 0.110 g/L (0.200-0.400) L 12/29/16 05:15 Triglycerides 55 mg/dL (2-149) 02/06/17 04:45 Cholesterol 31 mg/dL (50-199) L 09/29/16 20:12 LDL Cholesterol Direct 4 mg/dL (50-130) L 09/29/16 20:12 HDL Cholesterol 3 mg/dL (40-59) L 09/29/16 20:12 Cholesterol/HDL Ratio 10.33 % 09/29/16 20:12 Angiotensin Convert Enz See scanned report 09/08/16 11:48 Renin 0.99 ng/mL/h (0.25-5.82) 10/07/16 10:56 Aldosterone <1 ng/dL () 10/07/16 10:56 Aldosterone/Renin Dir see below 10/07/16 10:56 Serotonin Release Assay See scanned report 09/29/16 13:35 25-OH Vitamin D Total 13 ng/mL (30-100) L 02/15/17 19:08 TSH 1.010 mlU/mL (0.270-4.200) 09/07/16 08:37 HCG, Qual Negative (Negative) 09/03/16 00:10 PTH Intact 10.88 pg/mL (15-65) L 02/15/17 19:08 Total Cortisol 18.2 mcg/dL () 02/02/17 20:09 Urine Color Yellow (Yellow) 11/05/16 13:09 Urine Turbidity Clear (Clear) 11/05/16 13:09 Urine pH 9.0 (5.0-7.0) H 11/05/16 13:09 Ur Specific [place] 1.011 (1.003-1.030) 11/05/16 13:09 Urine Protein 100 mg/dl mg/dL (Negative) 11/05/16 13:09 Urine Glucose (UA) Neg mg/dL (Negative) 11/05/16 13:09 Urine Ketones Neg mg/dL (Negative) 11/05/16 13:09 Urine Blood Neg (Negative) 11/05/16 13:09 Urine Nitrite Neg (Negative) 11/05/16 13:09 Urine Bilirubin Neg (Negative) 11/05/16 13:09 Urine Urobilinogen < 2.0 mg/dL (<2.0) 11/05/16 13:09 Ur Leukocyte Esterase Neg (Negative) 11/05/16 13:09 Urine WBC (Auto) 4.0 /HPF (0.0-6.0) 11/05/16 13:09 Urine RBC (Auto) 1.0 /HPF (0.0-6.0) 11/05/16 13:09 U Epithel Cells (Auto) 1.0 /HPF (0-13.0) 10/07/16 18:30 Urine Bacteria (Auto) 4+ /HPF (Negative) 11/05/16 13:09 Urine WBC Clumps 2+ /HPF 09/07/16 02:47 Hyaline Casts 4 /LPF 09/07/16 02:47 Urine Mucus Few /HPF 10/07/16 18:30 Urine Yeast (Budding) 3+ /HPF 10/07/16 18:30 Urine Eosinophils None seen (None Seen) 09/07/16 16:00 Urine Total Volume 950 11/12/16 10:18 Urine Creatinine 19.7 mg/dL (0.1-20.0) 11/12/16 10:18 Height (in) 65.0 inches 11/12/16 10:18 Weight (lb) 181.0 lbs 11/12/16 10:18 Creatinine Clearance 5 11/12/16 10:18 Urine Sodium 36 mEq/L 09/16/16 19:19 Urine Total Protein 16 mg/dL (5-11.8) H 09/16/16 19:19 Fluid Type Pleural 01/13/17 12:10 Fluid Color Yellow 01/13/17 12:10 Fluid Appearance Hazy 01/13/17 12:10 Fluid WBC 182 /mm3 01/13/17 12:10 Fluid RBC 41 /mm3 01/13/17 12:10 Fluid Seg Neutrophils 85.0 % 01/13/17 12:10 Fluid Lymphocytes 8.0 % 01/13/17 12:10 Fluid Reactive Lymphs 0 % 01/13/17 12:10 Fluid Monocytes 6.0 % 01/13/17 12:10 Fluid Eosinophils 1.0 % 01/13/17 12:10 Fluid Basophils 0 % 01/13/17 12:10 Fluid Total Protein 3.0 (15.0-45.0) L 01/13/17 12:10 Fluid LDH 1322 01/13/17 12:10 Fluid Comment Diff performed 01/13/17 12:10 Vancomycin Trough 2.3 ug/mL (5.0-20.0) L 09/21/16 13:00 Random Vancomycin 16.5 ug/mL (0-40.0) 11/28/16 09:45 Urine Opiates Screen Presumptive negative 09/03/16 15:11 Urine Methadone Screen Presumptive positive 09/03/16 15:11 Ur Barbiturates Screen Presumptive positive 09/03/16 15:11 Ur Phencyclidine Scrn Presumptive negative 09/03/16 15:11 Ur Amphetamines Screen Presumptive negative 09/03/16 15:11 U Benzodiazepines Scrn Presumptive negative 09/03/16 15:11 Urine Cocaine Screen Presumptive negative 09/03/16 15:11 U Marijuana (THC) Screen Presumptive positive 09/03/16 15:11 Drugs of Abuse Note Disclamer 09/03/16 15:11 Rheumatoid Factor 24 IU/ml (0-13) H 09/08/16 11:48 SAHIL Screen Negative (Negative) 09/07/16 09:20 Proteinase 3 (PR3) Ab <1.0 AI (<1.0) 09/07/16 09:20 Myeloperoxidase Ab <1.0 AI (<1.0) 09/07/16 09:20 Sjogren's Antibody <1.0 AI (<1.0) 09/08/16 15:35 Scl-70 Scleroderma Ab <1.0 AI (<1.0) 09/08/16 15:35 Centromere B Antibody <1.0 AI (<1.0) 09/08/16 12:02 Heparin-induced Plt Ab Negative (Negative) 09/29/16 13:35 UF Heparin High Dose 11 % Release 09/29/16 13:35 SUDHIR UFH Low Dose 0.1 6 % Release 09/29/16 13:35 SUDHIR UFH Low Dose 0.5 8 % Release 09/29/16 13:35 Cardiolipid IgG Ab <14 GPL (<=14) 09/12/16 09:59 Cardiolipid IgA Ab <11 APL (<=11) 09/12/16 09:59 Cardiolipid IgM Ab <12 MPL (<=12) 09/12/16 09:59 Complement C3 148 mg/dL (90-180) 09/07/16 09:20 Complement C4 58 mg/dL (16-47) H 09/07/16 09:20 RPR Nonreactive (Nonreactive) 09/08/16 11:48 Hepatitis A IgM Ab Non-reactive (NonReactive) 09/24/16 14:40 Hep Bs Antigen Non-reactive (Negative) 09/24/16 14:40 Hep B Core IgM Ab Non-reactive (NonReactive) 09/24/16 14:40 Hepatitis C Antibody Non-reactive (NonReactive) 09/24/16 14:40 HIV 1&2 Antibody Rapid Non react (Non React) 09/08/16 11:48 HIV P24 Antigen Non react (Non React) 09/08/16 11:48 Miscellaneous Test Flexitest 1 H 01/09/17 18:45 Blood Type A POSITIVE 02/12/17 10:25 Antibody Screen Negative 02/12/17 10:25 DELORIS Antibody Screen Negative 11/24/16 11:20 Crossmatch See Detail 02/12/17 10:25
[2017-02-21] MEDS ORDERED: TPN ADULT IV SCH (20:00)
[2017-02-22 05:02] LABS: Albumin 1.3 g/dL (3.9-5); Calcium 9.4 mg/dL (8.4-10.2)
[2017-02-22] MEDS: REGLAN IV SCH ×3 (05:02→23:05)
[2017-02-22] MEDS: FLAGYL 500 MG/100 ML 500 MG/100 ML BAG IV SCH (05:02)
[2017-02-22] MEDS: CORDARONE 900 MG in D5W 482 ML IV SCH (05:03)
[2017-02-22] MEDS: HumuLIN R SUB-Q SCH ×4 (05:06→18:44)
[2017-02-22] MEDS: DUONEB *Not for PRN Use IH SCH ×3 (07:21→22:23)
--- NOTE | 2017-02-22 09:01 | Progress Note ---
Assessment and Plan - Patient Problems (1) JUANITA (acute kidney injury) Current Visit: Yes Status: Acute Plan to address problem: JUANITA with multiple medical problems-Dialysis dependent. Acute on chronic respiratory failure-ventilator dependent. Multiple comorbid conditions. S/P surgical debridement for sacral decubitus. Encephalopathy-same. HD with UF as ordered. Supportive care. Consultants , Hospitalist notes reviewed. (2) Acute CVA (cerebrovascular accident) Current Visit: Yes Status: Acute (3) Acute respiratory failure with hypoxia Current Visit: Yes Status: Acute (4) Atrial fibrillation Current Visit: Yes Status: Chronic (5) Type 2 diabetes mellitus Current Visit: Yes Status: Chronic (6) Anemia Current Visit: No Status: Acute Qualifiers: Anemia type: unspecified type Qualified Code(s): D64.9 - Anemia, unspecified (7) HTN (hypertension) Current Visit: Yes Status: Chronic (8) Diabetes Current Visit: Yes Status: Chronic Qualifiers: Diabetes mellitus type: type 2 Diabetes mellitus complication status: with hyperglycemia Subjective Date of service: 02/22/17 Principal diagnosis: Acute resp failure on MVS; S/P Acute CVA; Acute Encephalopathy; JUANITA Interval history: chart was reviewed, discussed with pt's nurse. on ventilator via trach. Fio2-25% . Pt remains non communicative. Objective - Vital Signs Vital signs: Vital Signs - 12hr 02/21/17 02/21/17 02/21/17 21:30 21:55 22:00 Temperature Pulse Rate 94 H 94 H Pulse Rate [ Anterior Bilateral Throughout] Pulse Rate [ From Monitor] Pulse Rate [ 92 H Throughout] Respiratory 24 Rate Respiratory Rate [Anterior Bilateral Throughout] Respiratory 22 Rate [ Throughout] Blood Pressure 144/96 141/92 O2 Sat by Pulse 100 100 Oximetry O2 Sat by Pulse Oximetry [ Assessment] 02/21/17 02/21/17 02/21/17 22:04 23:00 23:53 Temperature 97.6 F Pulse Rate 95 H Pulse Rate [ 92 H Anterior Bilateral Throughout] Pulse Rate [ From Monitor] Pulse Rate [ 91 H Throughout] Respiratory 19 Rate Respiratory 22 Rate [Anterior Bilateral Throughout] Respiratory 20 Rate [ Throughout] Blood Pressure 144/96 O2 Sat by Pulse 100 Oximetry O2 Sat by Pulse Oximetry [ Assessment] 02/22/17 02/22/17 02/22/17 00:00 00:13 00:50 Temperature Pulse Rate 93 H 92 H Pulse Rate [ Anterior Bilateral Throughout] Pulse Rate [ 97 H From Monitor] Pulse Rate [ Throughout] Respiratory 25 H Rate Respiratory Rate [Anterior Bilateral Throughout] Respiratory Rate [ Throughout] Blood Pressure 150/90 144/96 O2 Sat by Pulse 98 98 Oximetry O2 Sat by Pulse 100 Oximetry [ Assessment] 02/22/17 02/22/17 02/22/17 01:00 02:00 03:00 Temperature Pulse Rate 93 H 90 92 H Pulse Rate [ Anterior Bilateral Throughout] Pulse Rate [ From Monitor] Pulse Rate [ Throughout] Respiratory 16 21 17 Rate Respiratory Rate [Anterior Bilateral Throughout] Respiratory Rate [ Throughout] Blood Pressure 144/96 162/96 165/93 O2 Sat by Pulse 100 100 98 Oximetry O2 Sat by Pulse Oximetry [ Assessment] 02/22/17 02/22/17 02/22/17 03:23 04:00 04:43 Temperature 98.8 F Pulse Rate 108 H 88 Pulse Rate [ Anterior Bilateral Throughout] Pulse Rate [ 90 From Monitor] Pulse Rate [ Throughout] Respiratory 30 H 32 H Rate Respiratory Rate [Anterior Bilateral Throughout] Respiratory Rate [ Throughout] Blood Pressure 171/100 171/100 O2 Sat by Pulse 100 98 Oximetry O2 Sat by Pulse Oximetry [ Assessment] 02/22/17 02/22/17 02/22/17 05:00 06:00 07:00 Temperature Pulse Rate 86 88 87 Pulse Rate [ Anterior Bilateral Throughout] Pulse Rate [ From Monitor] Pulse Rate [ Throughout] Respiratory 28 H 23 29 H Rate Respiratory Rate [Anterior Bilateral Throughout] Respiratory Rate [ Throughout] Blood Pressure 141/75 152/81 142/83 O2 Sat by Pulse 100 100 100 Oximetry O2 Sat by Pulse Oximetry [ Assessment] 02/22/17 02/22/17 02/22/17 07:12 07:15 07:22 Temperature Pulse Rate 960 H Pulse Rate [ Anterior Bilateral Throughout] Pulse Rate [ From Monitor] Pulse Rate [ 89 Throughout] Respiratory Rate Respiratory Rate [Anterior Bilateral Throughout] Respiratory 22 Rate [ Throughout] Blood Pressure 142/83 O2 Sat by Pulse 98 Oximetry O2 Sat by Pulse 98 Oximetry [ Assessment] 02/22/17 02/22/17 07:37 08:00 Temperature 98.4 F Pulse Rate 91 H Pulse Rate [ Anterior Bilateral Throughout] Pulse Rate [ From Monitor] Pulse Rate [ 88 Throughout] Respiratory 21 Rate Respiratory Rate [Anterior Bilateral Throughout] Respiratory 20 Rate [ Throughout] Blood Pressure 136/85 O2 Sat by Pulse 100 Oximetry O2 Sat by Pulse Oximetry [ Assessment] - General Appearance General appearance: chronically ill, sedated on ventilator EENT: mucous membranes dry Neck: no JVD Respiratory: Present: Decreased Breath Sounds Cardiology: irregular Gastrointestinal: normoactive bowel sounds - Lab 02/19/17 09:45 02/22/17 04:10 Most recent lab results ABG pH 7.450 pH Units (7.350-7.450) 12/05/16 Unknown ABG pCO2 29.6 mm Hg 12/05/16 Unknown ABG pO2 75.2 mm Hg (80.0-90.0) L 12/05/16 Unknown ABG HCO3 20.1 mmol/L (20.0-26.0) 12/05/16 Unknown ABG O2 Saturation 96.8 % (95.0-99.0) 12/05/16 Unknown Calcium 9.4 mg/dL (8.4-10.2) 02/22/17 04:10 Phosphorus 3.40 mg/dL (2.5-4.5) 02/22/17 04:10 Magnesium 2.00 mg/dL (1.7-2.3) 02/22/17 04:10 Urine Creatinine 19.7 mg/dL (0.1-20.0) 11/12/16 10:18 Urine Sodium 36 mEq/L 09/16/16 19:19 Urine Total Protein 16 mg/dL (5-11.8) H 09/16/16 19:19 - Imaging Chest x-ray: report reviewed
[2017-02-22] MEDS: ROBINUL PO SCH (09:57)
[2017-02-22] MEDS: MAG-OX PO SCH (09:57)
[2017-02-22] MEDS: PROTONIX FEEDTUBE SCH (09:57)
[2017-02-22] MEDS: HEPARIN SUB-Q SCH ×2 (09:58→23:05)
--- NOTE | 2017-02-22 11:39 | Progress Note ---
Assessment and Plan Assessment: 1) Recurrent SIRS: new fever resolved- Likely due to perforated bowel 2) History of Peritonitis: from gastric perforation from dislodged PEG with significant ascites -S/P exlap, repair of gastric perforation with wedge gastrectomy, abdominal washout, drain placement on 10/05 3) History of Candidemia: -Blood cultures positive for Silvia albicans on 09/23 and 09/25 -Blood cultures negative on 09/30 -PICC line changed on 10/03 -Source ? gastric perf (PEG placed on 09/20) +/- TPN +/- central lines -TTE 10/07 no vegetations -PICC exchanged on 10/03 -fully treated with micafungin for 14 days last day 10/13 4) History CA-UTI s/p gutierrez exchanged 5) Diarrhea - ? etiology ? antibiotic-induced, not better. 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 from GI bleed 13) Recent abdominal wall abscess at surgical site-treated 14 ) Recent Enterococcal bacteremia from PICC line infection. 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 -S/P debridement at bedside - new wound cx 01/24 +Proteus and MDR Pseudomonas (resistant to meropenem and cefepime/sensitive to ceftazidime) and wound VAC placement -CRP=24 --> 8 16) Presumed VAP: sputum + MDR Pseudomonas / Proteus / pleural effusion s/p thoracentesis 17) Resp failure - better 18) Perforated bowel: Ct showed presumed perf bowel with free air Plan: -f/u blood cultures -s/p ceftazidime for 3 weeks- and before that meropenem -s/p flagyl and fluconazole for 7 days -I doubt any antibiotics intervention will help her condition in view of perforated bowel -monitor off antibiotics Thank you Dr Pierre for your consultation, will follow up with you. Pauline Carias MD Infectious Diseases Specialist [facility] ([facility] M [phone] O [phone] Subjective Date of service: 02/22/17 Principal diagnosis: Acute resp failure on MVS; S/P Acute CVA; Acute Encephalopathy; JUANITA Interval history: Interval history: remains on the vent, tachy on monitor, no fever Microbiology: Blood cultures: 09/13 neg 8/ Silvia albicans 09/25 Silvia 09/29 neg 10/07 neg 11/05 neg 11/07 ngtd 10/ E faecalis 1 of 4 bottles 11/25 neg 12/27 neg 01/09 ngtd 02/14 ngtd Urine cultures: 09/10 neg 09/13 neg 8/ 10-100K mixed species 10/07 neg 11/05 VRE 11/07 mixed bacteria Respiratory cultures: 09/07 neg 09/13 neg 09/23 neg 11/07 MDR Pseudomonas 11/21 tracheal + VRE 01/09 Pseudomonas x 3 and Proteues Pleural effusion: ngtd Wound cultures: 10/17 abd wall wound purulence + Pseudomonas MDR 01/24 GNRs Stool cultures: cath tip 11/07 + HEMATOLOGY SPECIALIST Current Antimicrobials: ceftaz 01/30 Previous Antimicrobials: Zosyn 10/07 Vancomycin PO 10/01 Metronidazole 09/25 Micafungin 09/27-10/13 Meropenem 10/10 Vanco 10/17 zosyn 10/21 Cefepime 11/10 vancomyin 11/07 fluconazole 10/19 cefepime 10/29levaquin 11/05 vanco 11/23 meropenem 01/08 Objective - Exam Narrative Exam: General appearance: alert non communicative, on the vent via trach in mild resp distress, no following commands Eyes: anicteric sclera, moist conjunctivae; PERRLA HENT: Atraumatic; oropharynx limited; Normal external ears. +NGT with greenish secretion Neck: +trach in place; supple, no thyromegaly or lymphadenopathy Lungs: brit coarse BS CV: tachy Abdomen: Soft, tender, +old PEG site no drainage. +iliostomy. Right sided Surgical site x 2 with ostomy bags Extremities: +peripheral edema Skin: sacral area wounds - per wound care STAGE 4 PRESSURE INJURY TO SACRAL MEASURES 7.5X6X2.5, WITH UNDERMINING FROM @9-1 OCLOCK-2.8CM-ULCER CLEANED WITH WOUND GRIZZLY WORKER-ULCER NEW - Sacrum wound measuring 9x11cm. Necrotic tissue noted on the wound edges and in the wound bed Now with a wound VAC Psych: somnolent . Neuro: alert non verbal on the vent. Lines: PICC / gutierrez - Constitutional Vitals: Vital Signs Temp Pulse Resp BP Pulse Ox 98.4 F 99 H 24 129/89 100 02/22/17 10:30 02/22/17 11:12 02/22/17 11:00 02/22/17 11:12 02/22/17 11:00 Temperature -Last 24 Hours Temperature 98.4 F Temperature 98.4 F Temperature 98.8 F Temperature 97.6 F Temperature 98.9 F Temperature 97.7 F Temperature 98.4 F - Labs CBC & Chem 7: 02/19/17 09:45 02/22/17 04:10 Labs: Abnormal lab results 02/21/17 02/21/17 02/22/17 Range/Units 11:58 23:41 04:10 Sodium 135 L (137-145) mmol/L Chloride 97.7 L (98-107) mmol/L Carbon Dioxide 21 L (22-30) mmol/L BUN 101 H (7-17) mg/dL Creatinine 2.5 H (0.7-1.2) mg/dL Glucose 116 H (65-100) mg/dL POC Glucose 139 H 128 H (70-105) Albumin 1.3 L (3.9-5) g/dL 02/22/17 Range/Units 06:03 Sodium (137-145) mmol/L Chloride (98-107) mmol/L Carbon Dioxide (22-30) mmol/L BUN (7-17) mg/dL Creatinine (0.7-1.2) mg/dL Glucose (65-100) mg/dL POC Glucose 126 H (70-105) Albumin (3.9-5) g/dL
--- NOTE | 2017-02-22 12:02 | Progress Note ---
Assessment and Plan Acute Hypoxemic Respiratory Failure (now with exacerbation and back on MVS) Hypertension (unable to receive p.o. meds) Atrial Fibrillation with RVR s/p tracheostomy Acute encephalopathy s/p CVA Oropharyngeal dysphagia Enterococcal bacteremia sepsis syndrome Sacral Decubitus Ulcer (s/p surgical debridement) Anemia Obesity JUANITA now on hemodialysis Enteric Fistula - scheduled IV metoprolol with hold parameters - stop Amiodarone drip once rate better controlled - continue to hold tube feeds due to continued intolerance; continue reglan at 10mg IV q8h - continue NGT to LIS - IR earlier consulted for G-J tube (not a good candidate for G-J Tube per IR) - remains on amiodarone drip for persistent tachycardia (improving) - Pleural fluid cultures negative - unfortunately not a good candidate for a VATS procedure - prn CXR's - appreciate surgery input - continue fentanyl patch for pain issues especially s/p debridement - continue wound care per WCT and RN's (she is s/p surgical debridement) - continue anti-infectives per ID recs (az now) - prn CRP & lactate levels if clinically indicated (Follow WBC also) - keep on with daily PSV trials and / or T-piece as tolerated - continue TPN administration - continue robinul & scopolamine for secretion control - continue to wean FiO2 for sats > 94% - continue bronchodilators and pulmonary toilet - VAP bundle addressed - continue to follow electrolytes and correct as necessary - continue GI & VTE prophylaxis - Continue flu & pneumovax per protocol - ethics consult placed and pending .....she remains critically ill on life sustaining interventions including MVS and at risk for further deterioration including ....30' CCT ....care plan discussed at length during team rounds ...jail prognosis remains guarded and this has intermittently been conveyed to family Subjective Date of service: 02/22/17 Principal diagnosis: Acute resp failure on MVS; S/P Acute CVA; Acute Encephalopathy; JUANITA Interval history: Patient is seen today for: Acute resp failure on MVS; S/P Acute CVA; Acute Encephalopathy; JUANITA Seen and examined at bedside; 24hour events reviewed; nursing and respiratory care staff consulted; no adverse overnight events reported to me; remains on MVS ; HD/UF ongoing; AMS is persistent; no new issues otherwise Objective Vital Signs - 12hr 02/22/17 02/22/17 02/22/17 00:13 00:50 01:00 Temperature Pulse Rate 92 H 93 H Pulse Rate [ From Monitor] Pulse Rate [ Throughout] Respiratory 16 Rate Respiratory Rate [ Throughout] Blood Pressure 144/96 144/96 O2 Sat by Pulse 98 100 Oximetry O2 Sat by Pulse Oximetry [ Anterior Bilateral Throughout] O2 Sat by Pulse 100 Oximetry [ Assessment] O2 Sat by Pulse Oximetry [ Throughout] 02/22/17 02/22/17 02/22/17 02:00 03:00 03:23 Temperature Pulse Rate 90 92 H Pulse Rate [ 90 From Monitor] Pulse Rate [ Throughout] Respiratory 21 17 30 H Rate Respiratory Rate [ Throughout] Blood Pressure 162/96 165/93 O2 Sat by Pulse 100 98 100 Oximetry O2 Sat by Pulse Oximetry [ Anterior Bilateral Throughout] O2 Sat by Pulse Oximetry [ Assessment] O2 Sat by Pulse Oximetry [ Throughout] 02/22/17 02/22/17 02/22/17 04:00 04:43 05:00 Temperature 98.8 F Pulse Rate 108 H 88 86 Pulse Rate [ From Monitor] Pulse Rate [ Throughout] Respiratory 32 H 28 H Rate Respiratory Rate [ Throughout] Blood Pressure 171/100 171/100 141/75 O2 Sat by Pulse 98 100 Oximetry O2 Sat by Pulse Oximetry [ Anterior Bilateral Throughout] O2 Sat by Pulse Oximetry [ Assessment] O2 Sat by Pulse Oximetry [ Throughout] 02/22/17 02/22/17 02/22/17 06:00 07:00 07:12 Temperature Pulse Rate 88 87 960 H Pulse Rate [ From Monitor] Pulse Rate [ Throughout] Respiratory 23 29 H Rate Respiratory Rate [ Throughout] Blood Pressure 152/81 142/83 142/83 O2 Sat by Pulse 100 100 98 Oximetry O2 Sat by Pulse Oximetry [ Anterior Bilateral Throughout] O2 Sat by Pulse Oximetry [ Assessment] O2 Sat by Pulse Oximetry [ Throughout] 02/22/17 02/22/17 02/22/17 07:15 07:22 07:37 Temperature Pulse Rate Pulse Rate [ From Monitor] Pulse Rate [ 89 88 Throughout] Respiratory Rate Respiratory 22 20 Rate [ Throughout] Blood Pressure O2 Sat by Pulse Oximetry O2 Sat by Pulse Oximetry [ Anterior Bilateral Throughout] O2 Sat by Pulse 98 Oximetry [ Assessment] O2 Sat by Pulse Oximetry [ Throughout] 02/22/17 02/22/17 02/22/17 08:00 09:00 10:00 Temperature 98.4 F Pulse Rate 91 H 94 H 90 Pulse Rate [ From Monitor] Pulse Rate [ Throughout] Respiratory 21 20 31 H Rate Respiratory Rate [ Throughout] Blood Pressure 136/85 151/88 145/78 O2 Sat by Pulse 100 100 95 Oximetry O2 Sat by Pulse Oximetry [ Anterior Bilateral Throughout] O2 Sat by Pulse Oximetry [ Assessment] O2 Sat by Pulse Oximetry [ Throughout] 02/22/17 02/22/17 02/22/17 10:30 10:32 10:45 Temperature 98.4 F Pulse Rate 94 H 93 H 92 H Pulse Rate [ From Monitor] Pulse Rate [ Throughout] Respiratory 32 H 31 H Rate Respiratory Rate [ Throughout] Blood Pressure 146/82 135/78 134/76 O2 Sat by Pulse 97 99 Oximetry O2 Sat by Pulse 100 Oximetry [ Anterior Bilateral Throughout] O2 Sat by Pulse Oximetry [ Assessment] O2 Sat by Pulse 100 Oximetry [ Throughout] 02/22/17 02/22/17 02/22/17 11:00 11:12 11:15 Temperature Pulse Rate 99 H 99 H 103 H Pulse Rate [ From Monitor] Pulse Rate [ Throughout] Respiratory 24 25 H Rate Respiratory Rate [ Throughout] Blood Pressure 129/89 129/89 129/89 O2 Sat by Pulse 100 99 Oximetry O2 Sat by Pulse Oximetry [ Anterior Bilateral Throughout] O2 Sat by Pulse Oximetry [ Assessment] O2 Sat by Pulse Oximetry [ Throughout] 02/22/17 02/22/17 11:31 11:45 Temperature Pulse Rate 104 H 96 H Pulse Rate [ From Monitor] Pulse Rate [ Throughout] Respiratory 25 H 33 H Rate Respiratory Rate [ Throughout] Blood Pressure 96/52 72/44 O2 Sat by Pulse 98 100 Oximetry O2 Sat by Pulse Oximetry [ Anterior Bilateral Throughout] O2 Sat by Pulse Oximetry [ Assessment] O2 Sat by Pulse Oximetry [ Throughout] Constitutional: appears uncomfortable, other (not tracking) Eyes: non-icteric, other (tracheostomy tube in midline of neck) ENT: oropharynx moist, oropharyngeal exudate pre, other (midline tracheostomy tube) Neck: supple, no lymphadenopathy, no JVD, other (no thyromegaly) Effort: mildly labored Ascultation: Bilateral: diminished breath sounds, rhonchi (and referred upper airway sounds) Percussion: Bilateral: not dull Cardiovascular: regular rate and rhythm, other (no rubs / murmurs) Gastrointestinal: hypoactive bowel sounds, soft, non-tender, non-distended, other (RLQ & LUQ stomas with colostomy bags) Integumentary: decubitus ulcer (sacral; stage 4 s/p surgical debridement), other (no rash; no cellulitis; poor turgor) Extremities: no cyanosis, pulses normal, no ischemia or petechiae, edema (1+ bilaterally) Neurologic: pupils equal and round, unable to assess, other (encephalopathic) Psychiatric: other (unable to assess) CBC and BMP: 02/24/17 10:05 03/02/17 03:05 ABG, PT/INR, D-dimer: ABG POC ABG pH 7.436 (7.35-7.45) 01/20/17 12:17 ABG pH 7.450 pH Units (7.350-7.450) 12/05/16 Unknown POC ABG pCO2 35.3 (35-45) 01/20/17 12: ABG pCO2 29.6 mm Hg 12/05/16 Unknown POC ABG pO2 70 (80-105) L 01/20/17 12:17 ABG pO2 75.2 mm Hg (80.0-90.0) L 12/05/16 Unknown POC ABG HCO3 23.8 01/20/17 12:17 POC ABG Total CO2 25 01/20/17 12:17 POC ABG O2 Sat 94 01/20/17 12:17 ABG O2 Saturation 96.8 % (95.0-99.0) 12/05/16 Unknown PT/INR, D-dimer PT 15.4 Sec. (12.2-14.9) H 01/13/17 15:50 INR 1.16 (0.87-1.13) H 01/13/17 15:50 Abnormal lab findings: Abnormal Labs 09/03/16 09/03/16 09/03/16 00:03 00:10 00:10 WBC 13.9 H RBC 5.95 H Hgb Hct 44.0 H MCV 74 L MCH 22 L MCHC RDW 17.5 H Plt Count Lymph % (Auto) [place] % (Auto) Lymph # [place] # Baso # Seg Neutrophils % Seg Neuts % (Manual) Lymphocytes % (Manual) 54.0 H Monocytes % (Manual) Eosinophils % (Manual) Basophils % (Manual) Nucleated RBC % Seg Neutrophils # Seg Neutrophils # Man Lymphocytes # (Manual) 7.5 H Monocytes # (Manual) Eosinophils # (Manual) Basophils # (Manual) PT INR Fibrinogen dRVVT Confirm Interp Factor V Activity POC ABG pH POC ABG pCO2 POC ABG pO2 ABG pO2 ABG HCO3 ABG Base Excess ABG Hemoglobin Oxyhemoglobin Sodium Potassium 2.8 L* Chloride Carbon Dioxide 21 L BUN Creatinine 1.7 H Glucose 159 H POC Glucose 177 H Lactic Acid Calcium Ionized Calcium Phosphorus Magnesium Direct Bilirubin AST ALT Alkaline Phosphatase Lactate Dehydrogenase Troponin T C-Reactive Protein Total Protein Albumin Prealbumin Triglycerides Cholesterol LDL Cholesterol Direct HDL Cholesterol 25-OH Vitamin D Total PTH Intact Urine pH Urine WBC (Auto) Urine Creatinine Urine Total Protein Fluid Total Protein Vancomycin Trough Rheumatoid Factor Complement C4 Miscellaneous Test Crossmatch 09/03/16 09/03/16 09/03/16 12:12 15:07 16:20 WBC RBC Hgb Hct MCV MCH MCHC RDW Plt Count Lymph % (Auto) [place] % (Auto) Lymph # [place] # Baso # Seg Neutrophils % Seg Neuts % (Manual) Lymphocytes % (Manual) Monocytes % (Manual) Eosinophils % (Manual) Basophils % (Manual) Nucleated RBC % Seg Neutrophils # Seg Neutrophils # Man Lymphocytes # (Manual) Monocytes # (Manual) Eosinophils # (Manual) Basophils # (Manual) PT INR Fibrinogen dRVVT Confirm Interp Factor V Activity POC ABG pH 7.452 H POC ABG pCO2 POC ABG pO2 ABG pO2 ABG HCO3 ABG Base Excess ABG Hemoglobin Oxyhemoglobin Sodium Potassium Chloride Carbon Dioxide BUN Creatinine Glucose POC Glucose 178 H Lactic Acid Calcium Ionized Calcium Phosphorus 2.20 L Magnesium 1.60 L Direct Bilirubin AST ALT Alkaline Phosphatase Lactate Dehydrogenase Troponin T C-Reactive Protein Total Protein Albumin Prealbumin Triglycerides Cholesterol LDL Cholesterol Direct HDL Cholesterol 25-OH Vitamin D Total PTH Intact Urine pH Urine WBC (Auto) Urine Creatinine Urine Total Protein Fluid Total Protein Vancomycin Trough Rheumatoid Factor Complement C4 Miscellaneous Test Crossmatch 09/03/16 09/03/16 09/03/16 17:57 17:58 23:50 WBC RBC Hgb Hct MCV MCH MCHC RDW Plt Count Lymph % (Auto) [place] % (Auto) Lymph # [place] # Baso # Seg Neutrophils % Seg Neuts % (Manual) Lymphocytes % (Manual) Monocytes % (Manual) Eosinophils % (Manual) Basophils % (Manual) Nucleated RBC % Seg Neutrophils # Seg Neutrophils # Man Lymphocytes # (Manual) Monocytes # (Manual) Eosinophils # (Manual) Basophils # (Manual) PT INR Fibrinogen dRVVT Confirm Interp Factor V Activity POC ABG pH POC ABG pCO2 POC ABG pO2 ABG pO2 ABG HCO3 ABG Base Excess ABG Hemoglobin Oxyhemoglobin Sodium Potassium Chloride Carbon Dioxide BUN Creatinine Glucose POC Glucose 162 H 145 H Lactic Acid Calcium Ionized Calcium Phosphorus 2.30 L Magnesium Direct Bilirubin AST ALT Alkaline Phosphatase Lactate Dehydrogenase Troponin T C-Reactive Protein Total Protein Albumin Prealbumin Triglycerides Cholesterol LDL Cholesterol Direct HDL Cholesterol 25-OH Vitamin D Total PTH Intact Urine pH Urine WBC (Auto) Urine Creatinine Urine Total Protein Fluid Total Protein Vancomycin Trough Rheumatoid Factor Complement C4 Miscellaneous Test Crossmatch 09/04/16 09/04/16 09/04/16 03:31 03:31 05:42 WBC RBC Hgb 9.7 L D Hct MCV 72 L MCH 23 L MCHC RDW 17.5 H Plt Count Lymph % (Auto) 11.1 L [place] % (Auto) Lymph # [place] # Baso # Seg Neutrophils % 84.3 H Seg Neuts % (Manual) Lymphocytes % (Manual) Monocytes % (Manual) Eosinophils % (Manual) Basophils % (Manual) Nucleated RBC % Seg Neutrophils # 8.9 H Seg Neutrophils # Man Lymphocytes # (Manual) Monocytes # (Manual) Eosinophils # (Manual) Basophils # (Manual) PT INR Fibrinogen dRVVT Confirm Interp Factor V Activity POC ABG pH POC ABG pCO2 POC ABG pO2 ABG pO2 ABG HCO3 ABG Base Excess ABG Hemoglobin Oxyhemoglobin Sodium 135 L Potassium 2.9 L* Chloride 97.2 L Carbon Dioxide 19 L BUN Creatinine 1.7 H Glucose 170 H POC Glucose 152 H Lactic Acid Calcium Ionized Calcium Phosphorus Magnesium Direct Bilirubin AST ALT Alkaline Phosphatase Lactate Dehydrogenase Troponin T C-Reactive Protein Total Protein Albumin Prealbumin Triglycerides 160 H Cholesterol LDL Cholesterol Direct HDL Cholesterol 31 L 25-OH Vitamin D Total PTH Intact Urine pH Urine WBC (Auto) Urine Creatinine Urine Total Protein Fluid Total Protein Vancomycin Trough Rheumatoid Factor Complement C4 Miscellaneous Test Crossmatch 09/04/16 09/04/16 09/04/16 11:34 17:46 23:29 WBC RBC Hgb Hct MCV MCH MCHC RDW Plt Count Lymph % (Auto) [place] % (Auto) Lymph # [place] # Baso # Seg Neutrophils % Seg Neuts % (Manual) Lymphocytes % (Manual) Monocytes % (Manual) Eosinophils % (Manual) Basophils % (Manual) Nucleated RBC % Seg Neutrophils # Seg Neutrophils # Man Lymphocytes # (Manual) Monocytes # (Manual) Eosinophils # (Manual) Basophils # (Manual) PT INR Fibrinogen dRVVT Confirm Interp Factor V Activity POC ABG pH POC ABG pCO2 POC ABG pO2 ABG pO2 ABG HCO3 ABG Base Excess ABG Hemoglobin Oxyhemoglobin Sodium Potassium Chloride Carbon Dioxide BUN Creatinine Glucose POC Glucose 165 H 210 H 139 H Lactic Acid Calcium Ionized Calcium Phosphorus Magnesium Direct Bilirubin AST ALT Alkaline Phosphatase Lactate Dehydrogenase Troponin T C-Reactive Protein Total Protein Albumin Prealbumin Triglycerides Cholesterol LDL Cholesterol Direct HDL Cholesterol 25-OH Vitamin D Total PTH Intact Urine pH Urine WBC (Auto) Urine Creatinine Urine Total Protein Fluid Total Protein Vancomycin Trough Rheumatoid Factor Complement C4 Miscellaneous Test Crossmatch 09/05/16 09/05/16 09/05/16 04:05 04:05 05:38 WBC RBC Hgb Hct MCV 76 L D MCH 23 L MCHC RDW 17.8 H Plt Count Lymph % (Auto) [place] % (Auto) Lymph # [place] # Baso # Seg Neutrophils % Seg Neuts % (Manual) Lymphocytes % (Manual) Monocytes % (Manual) Eosinophils % (Manual) Basophils % (Manual) Nucleated RBC % Seg Neutrophils # Seg Neutrophils # Man Lymphocytes # (Manual) Monocytes # (Manual) Eosinophils # (Manual) Basophils # (Manual) PT INR Fibrinogen dRVVT Confirm Interp Factor V Activity POC ABG pH POC ABG pCO2 POC ABG pO2 ABG pO2 ABG HCO3 ABG Base Excess ABG Hemoglobin Oxyhemoglobin Sodium 134 L Potassium Chloride Carbon Dioxide 18 L BUN Creatinine 1.8 H Glucose 192 H POC Glucose 175 H Lactic Acid Calcium Ionized Calcium Phosphorus Magnesium Direct Bilirubin AST ALT Alkaline Phosphatase Lactate Dehydrogenase Troponin T C-Reactive Protein Total Protein Albumin Prealbumin Triglycerides Cholesterol LDL Cholesterol Direct HDL Cholesterol 25-OH Vitamin D Total PTH Intact Urine pH Urine WBC (Auto) Urine Creatinine Urine Total Protein Fluid Total Protein Vancomycin Trough Rheumatoid Factor Complement C4 Miscellaneous Test Crossmatch 09/05/16 09/05/16 09/05/16 11:38 17:48 23:22 WBC RBC Hgb Hct MCV MCH MCHC RDW Plt Count Lymph % (Auto) [place] % (Auto) Lymph # [place] # Baso # Seg Neutrophils % Seg Neuts % (Manual) Lymphocytes % (Manual) Monocytes % (Manual) Eosinophils % (Manual) Basophils % (Manual) Nucleated RBC % Seg Neutrophils # Seg Neutrophils # Man Lymphocytes # (Manual) Monocytes # (Manual) Eosinophils # (Manual) Basophils # (Manual) PT INR Fibrinogen dRVVT Confirm Interp Factor V Activity POC ABG pH POC ABG pCO2 POC ABG pO2 ABG pO2 ABG HCO3 ABG Base Excess ABG Hemoglobin Oxyhemoglobin Sodium Potassium Chloride Carbon Dioxide BUN Creatinine Glucose POC Glucose 164 H 186 H 195 H Lactic Acid Calcium Ionized Calcium Phosphorus Magnesium Direct Bilirubin AST ALT Alkaline Phosphatase Lactate Dehydrogenase Troponin T C-Reactive Protein Total Protein Albumin Prealbumin Triglycerides Cholesterol LDL Cholesterol Direct HDL Cholesterol 25-OH Vitamin D Total PTH Intact Urine pH Urine WBC (Auto) Urine Creatinine Urine Total Protein Fluid Total Protein Vancomycin Trough Rheumatoid Factor Complement C4 Miscellaneous Test Crossmatch 09/06/16 09/06/16 09/06/16 04:12 05:59 07:32 WBC RBC Hgb Hct MCV MCH MCHC RDW Plt Count Lymph % (Auto) [place] % (Auto) Lymph # [place] # Baso # Seg Neutrophils % Seg Neuts % (Manual) Lymphocytes % (Manual) Monocytes % (Manual) Eosinophils % (Manual) Basophils % (Manual) Nucleated RBC % Seg Neutrophils # Seg Neutrophils # Man Lymphocytes # (Manual) Monocytes # (Manual) Eosinophils # (Manual) Basophils # (Manual) PT INR Fibrinogen dRVVT Confirm Interp Factor V Activity POC ABG pH 7.514 H POC ABG pCO2 29.1 L POC ABG pO2 72 L ABG pO2 ABG HCO3 ABG Base Excess ABG Hemoglobin Oxyhemoglobin Sodium 133 L Potassium 3.4 L Chloride 94.9 L Carbon Dioxide 19 L BUN 30 H Creatinine 2.1 H Glucose 139 H POC Glucose 146 H Lactic Acid Calcium Ionized Calcium Phosphorus Magnesium Direct Bilirubin AST ALT Alkaline Phosphatase Lactate Dehydrogenase Troponin T C-Reactive Protein Total Protein Albumin Prealbumin Triglycerides Cholesterol LDL Cholesterol Direct HDL Cholesterol 25-OH Vitamin D Total PTH Intact Urine pH Urine WBC (Auto) Urine Creatinine Urine Total Protein Fluid Total Protein Vancomycin Trough Rheumatoid Factor Complement C4 Miscellaneous Test Crossmatch 09/06/16 09/06/16 09/06/16 11:57 17:58 19:02 WBC RBC Hgb Hct MCV MCH MCHC RDW Plt Count Lymph % (Auto) [place] % (Auto) Lymph # [place] # Baso # Seg Neutrophils % Seg Neuts % (Manual) Lymphocytes % (Manual) Monocytes % (Manual) Eosinophils % (Manual) Basophils % (Manual) Nucleated RBC % Seg Neutrophils # Seg Neutrophils # Man Lymphocytes # (Manual) Monocytes # (Manual) Eosinophils # (Manual) Basophils # (Manual) PT INR Fibrinogen dRVVT Confirm Interp Factor V Activity POC ABG pH 7.465 H POC ABG pCO2 32.0 L POC ABG pO2 ABG pO2 ABG HCO3 ABG Base Excess ABG Hemoglobin Oxyhemoglobin Sodium Potassium Chloride Carbon Dioxide BUN Creatinine Glucose POC Glucose 165 H 160 H Lactic Acid Calcium Ionized Calcium Phosphorus Magnesium Direct Bilirubin AST ALT Alkaline Phosphatase Lactate Dehydrogenase Troponin T C-Reactive Protein Total Protein Albumin Prealbumin Triglycerides Cholesterol LDL Cholesterol Direct HDL Cholesterol 25-OH Vitamin D Total PTH Intact Urine pH Urine WBC (Auto) Urine Creatinine Urine Total Protein Fluid Total Protein Vancomycin Trough Rheumatoid Factor Complement C4 Miscellaneous Test Crossmatch 09/06/16 09/07/16 09/07/16 23:45 02:47 02:47 WBC RBC Hgb Hct MCV MCH MCHC RDW Plt Count Lymph % (Auto) [place] % (Auto) Lymph # [place] # Baso # Seg Neutrophils % Seg Neuts % (Manual) Lymphocytes % (Manual) Monocytes % (Manual) Eosinophils % (Manual) Basophils % (Manual) Nucleated RBC % Seg Neutrophils # Seg Neutrophils # Man Lymphocytes # (Manual) Monocytes # (Manual) Eosinophils # (Manual) Basophils # (Manual) PT INR Fibrinogen dRVVT Confirm Interp Factor V Activity POC ABG pH POC ABG pCO2 POC ABG pO2 ABG pO2 ABG HCO3 ABG Base Excess ABG Hemoglobin Oxyhemoglobin Sodium Potassium Chloride Carbon Dioxide BUN Creatinine Glucose POC Glucose 204 H Lactic Acid Calcium Ionized Calcium Phosphorus Magnesium Direct Bilirubin AST ALT Alkaline Phosphatase Lactate Dehydrogenase Troponin T C-Reactive Protein Total Protein Albumin Prealbumin Triglycerides Cholesterol LDL Cholesterol Direct HDL Cholesterol 25-OH Vitamin D Total PTH Intact Urine pH Urine WBC (Auto) 68.0 H Urine Creatinine 106.1 H Urine Total Protein Fluid Total Protein Vancomycin Trough Rheumatoid Factor Complement C4 Miscellaneous Test Crossmatch 09/07/16 09/07/16 09/07/16 04:50 06:19 06:39 WBC RBC Hgb Hct MCV MCH MCHC RDW Plt Count Lymph % (Auto) [place] % (Auto) Lymph # [place] # Baso # Seg Neutrophils % Seg Neuts % (Manual) Lymphocytes % (Manual) Monocytes % (Manual) Eosinophils % (Manual) Basophils % (Manual) Nucleated RBC % Seg Neutrophils # Seg Neutrophils # Man Lymphocytes # (Manual) Monocytes # (Manual) Eosinophils # (Manual) Basophils # (Manual) PT INR Fibrinogen dRVVT Confirm Interp Factor V Activity POC ABG pH 7.457 H POC ABG pCO2 32.1 L POC ABG pO2 76 L ABG pO2 ABG HCO3 ABG Base Excess ABG Hemoglobin Oxyhemoglobin Sodium 132 L Potassium Chloride 94.7 L Carbon Dioxide BUN 53 H Creatinine 2.9 H Glucose 151 H POC Glucose 149 H Lactic Acid Calcium Ionized Calcium Phosphorus Magnesium Direct Bilirubin AST ALT Alkaline Phosphatase Lactate Dehydrogenase Troponin T C-Reactive Protein Total Protein Albumin Prealbumin Triglycerides Cholesterol LDL Cholesterol Direct HDL Cholesterol 25-OH Vitamin D Total PTH Intact Urine pH Urine WBC (Auto) Urine Creatinine Urine Total Protein Fluid Total Protein Vancomycin Trough Rheumatoid Factor Complement C4 Miscellaneous Test Crossmatch 09/07/16 09/07/16 09/07/16 09:20 11:43 11:43 WBC 19.4 H RBC Hgb 8.3 L Hct 26.4 L D MCV 72 L D MCH 22 L MCHC RDW 17.9 H Plt Count Lymph % (Auto) 8.5 L [place] % (Auto) Lymph # [place] # 1.0 H Baso # Seg Neutrophils % 85.8 H Seg Neuts % (Manual) Lymphocytes % (Manual) Monocytes % (Manual) Eosinophils % (Manual) Basophils % (Manual) Nucleated RBC % Seg Neutrophils # 16.6 H Seg Neutrophils # Man Lymphocytes # (Manual) Monocytes # (Manual) Eosinophils # (Manual) Basophils # (Manual) PT INR Fibrinogen dRVVT Confirm Interp Factor V Activity POC ABG pH POC ABG pCO2 POC ABG pO2 ABG pO2 ABG HCO3 ABG Base Excess ABG Hemoglobin Oxyhemoglobin Sodium 134 L Potassium Chloride 97.2 L Carbon Dioxide 20 L BUN 58 H Creatinine 2.9 H Glucose 147 H POC Glucose Lactic Acid Calcium Ionized Calcium Phosphorus 2.40 L Magnesium 2.40 H Direct Bilirubin AST ALT Alkaline Phosphatase Lactate Dehydrogenase Troponin T C-Reactive Protein Total Protein 5.8 L Albumin 2.2 L Prealbumin Triglycerides Cholesterol LDL Cholesterol Direct HDL Cholesterol 25-OH Vitamin D Total PTH Intact Urine pH Urine WBC (Auto) Urine Creatinine Urine Total Protein Fluid Total Protein Vancomycin Trough Rheumatoid Factor Complement C4 58 H Miscellaneous Test Crossmatch 09/07/16 09/07/16 09/07/16 11:50 16:00 17:31 WBC RBC Hgb Hct MCV MCH MCHC RDW Plt Count Lymph % (Auto) [place] % (Auto) Lymph # [place] # Baso # Seg Neutrophils % Seg Neuts % (Manual) Lymphocytes % (Manual) Monocytes % (Manual) Eosinophils % (Manual) Basophils % (Manual) Nucleated RBC % Seg Neutrophils # Seg Neutrophils # Man Lymphocytes # (Manual) Monocytes # (Manual) Eosinophils # (Manual) Basophils # (Manual) PT INR Fibrinogen dRVVT Confirm Interp Factor V Activity POC ABG pH POC ABG pCO2 POC ABG pO2 158 H ABG pO2 ABG HCO3 ABG Base Excess ABG Hemoglobin Oxyhemoglobin Sodium Potassium Chloride Carbon Dioxide BUN Creatinine Glucose POC Glucose 175 H Lactic Acid Calcium Ionized Calcium Phosphorus Magnesium Direct Bilirubin AST ALT Alkaline Phosphatase Lactate Dehydrogenase Troponin T C-Reactive Protein Total Protein Albumin Prealbumin Triglycerides Cholesterol LDL Cholesterol Direct HDL Cholesterol 25-OH Vitamin D Total PTH Intact Urine pH Urine WBC (Auto) Urine Creatinine 66.3 H Urine Total Protein Fluid Total Protein Vancomycin Trough Rheumatoid Factor Complement C4 Miscellaneous Test Crossmatch 09/07/16 09/08/16 09/08/16 23:50 05:46 06:18 WBC 17.8 H RBC 3.58 L Hgb 8.1 L Hct 25.5 L MCV 71 L MCH 23 L MCHC RDW 18.4 H Plt Count Lymph % (Auto) [place] % (Auto) Lymph # [place] # Baso # Seg Neutrophils % Seg Neuts % (Manual) 92.0 H Lymphocytes % (Manual) 6.0 L Monocytes % (Manual) Eosinophils % (Manual) Basophils % (Manual) Nucleated RBC % Seg Neutrophils # Seg Neutrophils # Man 16.4 H Lymphocytes # (Manual) 1.1 L Monocytes # (Manual) Eosinophils # (Manual) Basophils # (Manual) PT INR Fibrinogen dRVVT Confirm Interp Factor V Activity POC ABG pH POC ABG pCO2 34.3 L POC ABG pO2 71 L ABG pO2 ABG HCO3 ABG Base Excess ABG Hemoglobin Oxyhemoglobin Sodium Potassium Chloride Carbon Dioxide BUN Creatinine Glucose POC Glucose 216 H Lactic Acid Calcium Ionized Calcium Phosphorus Magnesium Direct Bilirubin AST ALT Alkaline Phosphatase Lactate Dehydrogenase Troponin T C-Reactive Protein Total Protein Albumin Prealbumin Triglycerides Cholesterol LDL Cholesterol Direct HDL Cholesterol 25-OH Vitamin D Total PTH Intact Urine pH Urine WBC (Auto) Urine Creatinine Urine Total Protein Fluid Total Protein Vancomycin Trough Rheumatoid Factor Complement C4 Miscellaneous Test Crossmatch 09/08/16 09/08/16 09/08/16 06:18 06:51 10:55 WBC RBC Hgb Hct MCV MCH MCHC RDW Plt Count Lymph % (Auto) [place] % (Auto) Lymph # [place] # Baso # Seg Neutrophils % Seg Neuts % (Manual) Lymphocytes % (Manual) Monocytes % (Manual) Eosinophils % (Manual) Basophils % (Manual) Nucleated RBC % Seg Neutrophils # Seg Neutrophils # Man Lymphocytes # (Manual) Monocytes # (Manual) Eosinophils # (Manual) Basophils # (Manual) PT INR Fibrinogen dRVVT Confirm Interp Factor V Activity POC ABG pH POC ABG pCO2 POC ABG pO2 ABG pO2 ABG HCO3 ABG Base Excess ABG Hemoglobin Oxyhemoglobin Sodium 133 L Potassium Chloride 96.9 L Carbon Dioxide 20 L BUN 63 H Creatinine 2.7 H Glucose 195 H POC Glucose 204 H 169 H Lactic Acid Calcium Ionized Calcium Phosphorus Magnesium Direct Bilirubin AST ALT Alkaline Phosphatase Lactate Dehydrogenase Troponin T C-Reactive Protein Total Protein Albumin Prealbumin Triglycerides Cholesterol LDL Cholesterol Direct HDL Cholesterol 25-OH Vitamin D Total PTH Intact Urine pH Urine WBC (Auto) Urine Creatinine Urine Total Protein Fluid Total Protein Vancomycin Trough Rheumatoid Factor Complement C4 Miscellaneous Test Crossmatch 09/08/16 09/08/16 09/08/16 11:48 11:48 11:48 WBC RBC Hgb Hct MCV MCH MCHC RDW Plt Count Lymph % (Auto) [place] % (Auto) Lymph # [place] # Baso # Seg Neutrophils % Seg Neuts % (Manual) Lymphocytes % (Manual) Monocytes % (Manual) Eosinophils % (Manual) Basophils % (Manual) Nucleated RBC % Seg Neutrophils # Seg Neutrophils # Man Lymphocytes # (Manual) Monocytes # (Manual) Eosinophils # (Manual) Basophils # (Manual) PT INR Fibrinogen 750 H dRVVT Confirm Interp Factor V Activity POC ABG pH POC ABG pCO2 POC ABG pO2 ABG pO2 ABG HCO3 ABG Base Excess ABG Hemoglobin Oxyhemoglobin Sodium Potassium Chloride Carbon Dioxide BUN Creatinine Glucose POC Glucose Lactic Acid Calcium Ionized Calcium Phosphorus Magnesium Direct Bilirubin AST ALT Alkaline Phosphatase Lactate Dehydrogenase Troponin T C-Reactive Protein 15.70 H Total Protein Albumin Prealbumin Triglycerides Cholesterol LDL Cholesterol Direct HDL Cholesterol 25-OH Vitamin D Total PTH Intact Urine pH Urine WBC (Auto) Urine Creatinine Urine Total Protein Fluid Total Protein Vancomycin Trough Rheumatoid Factor 24 H Complement C4 Miscellaneous Test Crossmatch 09/08/16 09/08/16 09/09/16 15:35 18:25 00:24 WBC RBC Hgb Hct MCV MCH MCHC RDW Plt Count Lymph % (Auto) [place] % (Auto) Lymph # [place] # Baso # Seg Neutrophils % Seg Neuts % (Manual) Lymphocytes % (Manual) Monocytes % (Manual) Eosinophils % (Manual) Basophils % (Manual) Nucleated RBC % Seg Neutrophils # Seg Neutrophils # Man Lymphocytes # (Manual) Monocytes # (Manual) Eosinophils # (Manual) Basophils # (Manual) PT INR Fibrinogen dRVVT Confirm Interp Factor V Activity 182 H POC ABG pH POC ABG pCO2 POC ABG pO2 ABG pO2 ABG HCO3 ABG Base Excess ABG Hemoglobin Oxyhemoglobin Sodium Potassium Chloride Carbon Dioxide BUN Creatinine Glucose POC Glucose 184 H 216 H Lactic Acid Calcium Ionized Calcium Phosphorus Magnesium Direct Bilirubin AST ALT Alkaline Phosphatase Lactate Dehydrogenase Troponin T C-Reactive Protein Total Protein Albumin Prealbumin Triglycerides Cholesterol LDL Cholesterol Direct HDL Cholesterol 25-OH Vitamin D Total PTH Intact Urine pH Urine WBC (Auto) Urine Creatinine Urine Total Protein Fluid Total Protein Vancomycin Trough Rheumatoid Factor Complement C4 Miscellaneous Test Crossmatch 09/09/16 09/09/16 09/09/16 03:00 03:00 04:04 WBC 27.9 H RBC Hgb 8.7 L Hct 28.1 L MCV 72 L MCH 22 L MCHC RDW 18.4 H Plt Count 485 H Lymph % (Auto) [place] % (Auto) Lymph # [place] # Baso # Seg Neutrophils % Seg Neuts % (Manual) 77.0 H Lymphocytes % (Manual) 9.0 L Monocytes % (Manual) Eosinophils % (Manual) Basophils % (Manual) Nucleated RBC % Seg Neutrophils # Seg Neutrophils # Man 21.5 H Lymphocytes # (Manual) Monocytes # (Manual) 2.0 H Eosinophils # (Manual) Basophils # (Manual) PT INR Fibrinogen dRVVT Confirm Interp Factor V Activity POC ABG pH POC ABG pCO2 POC ABG pO2 121 H ABG pO2 ABG HCO3 ABG Base Excess ABG Hemoglobin Oxyhemoglobin Sodium 135 L Potassium Chloride 96.3 L Carbon Dioxide 21 L BUN 83 H Creatinine 3.0 H Glucose 135 H POC Glucose Lactic Acid Calcium Ionized Calcium Phosphorus Magnesium Direct Bilirubin AST ALT Alkaline Phosphatase Lactate Dehydrogenase Troponin T C-Reactive Protein Total Protein Albumin Prealbumin Triglycerides Cholesterol LDL Cholesterol Direct HDL Cholesterol 25-OH Vitamin D Total PTH Intact Urine pH Urine WBC (Auto) Urine Creatinine Urine Total Protein Fluid Total Protein Vancomycin Trough Rheumatoid Factor Complement C4 Miscellaneous Test Crossmatch 09/09/16 09/09/16 09/09/16 05:41 11:55 14:13 WBC RBC Hgb Hct MCV MCH MCHC RDW Plt Count Lymph % (Auto) [place] % (Auto) Lymph # [place] # Baso # Seg Neutrophils % Seg Neuts % (Manual) Lymphocytes % (Manual) Monocytes % (Manual) Eosinophils % (Manual) Basophils % (Manual) Nucleated RBC % Seg Neutrophils # Seg Neutrophils # Man Lymphocytes # (Manual) Monocytes # (Manual) Eosinophils # (Manual) Basophils # (Manual) PT INR Fibrinogen dRVVT Confirm Interp Factor V Activity POC ABG pH POC ABG pCO2 POC ABG pO2 ABG pO2 ABG HCO3 ABG Base Excess ABG Hemoglobin Oxyhemoglobin Sodium Potassium Chloride Carbon Dioxide BUN Creatinine Glucose POC Glucose 155 H 186 H Lactic Acid Calcium Ionized Calcium Phosphorus Magnesium Direct Bilirubin AST ALT Alkaline Phosphatase Lactate Dehydrogenase Troponin T C-Reactive Protein Total Protein Albumin Prealbumin Triglycerides Cholesterol LDL Cholesterol Direct HDL Cholesterol 25-OH Vitamin D Total PTH Intact Urine pH Urine WBC (Auto) 25.0 H Urine Creatinine Urine Total Protein Fluid Total Protein Vancomycin Trough Rheumatoid Factor Complement C4 Miscellaneous Test Crossmatch 09/09/16 09/09/16 09/10/16 17:33 23:13 05:09 WBC RBC Hgb Hct MCV MCH MCHC RDW Plt Count Lymph % (Auto) [place] % (Auto) Lymph # [place] # Baso # Seg Neutrophils % Seg Neuts % (Manual) Lymphocytes % (Manual) Monocytes % (Manual) Eosinophils % (Manual) Basophils % (Manual) Nucleated RBC % Seg Neutrophils # Seg Neutrophils # Man Lymphocytes # (Manual) Monocytes # (Manual) Eosinophils # (Manual) Basophils # (Manual) PT INR Fibrinogen dRVVT Confirm Interp Factor V Activity POC ABG pH POC ABG pCO2 POC ABG pO2 74 L ABG pO2 ABG HCO3 ABG Base Excess ABG Hemoglobin Oxyhemoglobin Sodium Potassium Chloride Carbon Dioxide BUN Creatinine Glucose POC Glucose 211 H 215 H Lactic Acid Calcium Ionized Calcium Phosphorus Magnesium Direct Bilirubin AST ALT Alkaline Phosphatase Lactate Dehydrogenase Troponin T C-Reactive Protein Total Protein Albumin Prealbumin Triglycerides Cholesterol LDL Cholesterol Direct HDL Cholesterol 25-OH Vitamin D Total PTH Intact Urine pH Urine WBC (Auto) Urine Creatinine Urine Total Protein Fluid Total Protein Vancomycin Trough Rheumatoid Factor Complement C4 Miscellaneous Test Crossmatch 09/10/16 09/10/16 09/10/16 05:17 05:17 11:31 WBC 15.8 H RBC 3.25 L Hgb 7.3 L Hct 22.9 L MCV 71 L MCH 23 L MCHC RDW 18.4 H Plt Count Lymph % (Auto) [place] % (Auto) Lymph # [place] # Baso # Seg Neutrophils % Seg Neuts % (Manual) 91.0 H Lymphocytes % (Manual) 4.0 L Monocytes % (Manual) Eosinophils % (Manual) Basophils % (Manual) Nucleated RBC % Seg Neutrophils # Seg Neutrophils # Man 14.4 H Lymphocytes # (Manual) 0.6 L Monocytes # (Manual) Eosinophils # (Manual) Basophils # (Manual) PT INR Fibrinogen dRVVT Confirm Interp Factor V Activity POC ABG pH POC ABG pCO2 POC ABG pO2 ABG pO2 ABG HCO3 ABG Base Excess ABG Hemoglobin Oxyhemoglobin Sodium Potassium Chloride Carbon Dioxide 21 L BUN 93 H Creatinine 2.9 H Glucose 146 H POC Glucose 188 H Lactic Acid Calcium 8.1 L Ionized Calcium Phosphorus Magnesium Direct Bilirubin AST ALT Alkaline Phosphatase Lactate Dehydrogenase Troponin T C-Reactive Protein Total Protein Albumin Prealbumin Triglycerides Cholesterol LDL Cholesterol Direct HDL Cholesterol 25-OH Vitamin D Total PTH Intact Urine pH Urine WBC (Auto) Urine Creatinine Urine Total Protein Fluid Total Protein Vancomycin Trough Rheumatoid Factor Complement C4 Miscellaneous Test Crossmatch 09/10/16 09/10/16 09/10/16 13:17 17:20 23:32 WBC RBC Hgb Hct MCV MCH MCHC RDW Plt Count Lymph % (Auto) [place] % (Auto) Lymph # [place] # Baso # Seg Neutrophils % Seg Neuts % (Manual) Lymphocytes % (Manual) Monocytes % (Manual) Eosinophils % (Manual) Basophils % (Manual) Nucleated RBC % Seg Neutrophils # Seg Neutrophils # Man Lymphocytes # (Manual) Monocytes # (Manual) Eosinophils # (Manual) Basophils # (Manual) PT INR Fibrinogen dRVVT Confirm Interp Factor V Activity POC ABG pH POC ABG pCO2 POC ABG pO2 ABG pO2 ABG HCO3 ABG Base Excess ABG Hemoglobin Oxyhemoglobin Sodium Potassium Chloride Carbon Dioxide BUN Creatinine Glucose POC Glucose 199 H 186 H Lactic Acid Calcium Ionized Calcium Phosphorus Magnesium Direct Bilirubin AST ALT Alkaline Phosphatase Lactate Dehydrogenase Troponin T C-Reactive Protein Total Protein Albumin Prealbumin Triglycerides Cholesterol LDL Cholesterol Direct HDL Cholesterol 25-OH Vitamin D Total PTH Intact Urine pH Urine WBC (Auto) Urine Creatinine Urine Total Protein Fluid Total Protein Vancomycin Trough Rheumatoid Factor Complement C4 Miscellaneous Test Crossmatch See Detail 09/11/16 09/11/16 09/11/16 05:10 05:10 05:17 WBC 28.4 H RBC Hgb 9.2 L Hct 29.3 L D MCV 73 L MCH 23 L MCHC RDW 18.9 H Plt Count 452 H Lymph % (Auto) [place] % (Auto) Lymph # [place] # Baso # Seg Neutrophils % Seg Neuts % (Manual) 89.5 H Lymphocytes % (Manual) 2.0 L Monocytes % (Manual) Eosinophils % (Manual) Basophils % (Manual) Nucleated RBC % Seg Neutrophils # Seg Neutrophils # Man 25.4 H Lymphocytes # (Manual) 0.6 L Monocytes # (Manual) 1.3 H Eosinophils # (Manual) Basophils # (Manual) PT INR Fibrinogen dRVVT Confirm Interp Factor V Activity POC ABG pH POC ABG pCO2 POC ABG pO2 ABG pO2 ABG HCO3 ABG Base Excess ABG Hemoglobin Oxyhemoglobin Sodium 136 L Potassium Chloride Carbon Dioxide 18 L BUN 107 H Creatinine 2.6 H Glucose 187 H POC Glucose 230 H Lactic Acid Calcium 8.3 L Ionized Calcium Phosphorus Magnesium Direct Bilirubin AST ALT Alkaline Phosphatase Lactate Dehydrogenase Troponin T C-Reactive Protein Total Protein Albumin Prealbumin Triglycerides Cholesterol LDL Cholesterol Direct HDL Cholesterol 25-OH Vitamin D Total PTH Intact Urine pH Urine WBC (Auto) Urine Creatinine Urine Total Protein Fluid Total Protein Vancomycin Trough Rheumatoid Factor Complement C4 Miscellaneous Test Crossmatch 09/11/16 09/11/16 09/11/16 05:55 12:02 17:32 WBC RBC Hgb Hct MCV MCH MCHC RDW Plt Count Lymph % (Auto) [place] % (Auto) Lymph # [place] # Baso # Seg Neutrophils % Seg Neuts % (Manual) Lymphocytes % (Manual) Monocytes % (Manual) Eosinophils % (Manual) Basophils % (Manual) Nucleated RBC % Seg Neutrophils # Seg Neutrophils # Man Lymphocytes # (Manual) Monocytes # (Manual) Eosinophils # (Manual) Basophils # (Manual) PT INR Fibrinogen dRVVT Confirm Interp Factor V Activity POC ABG pH POC ABG pCO2 33.8 L POC ABG pO2 ABG pO2 ABG HCO3 ABG Base Excess ABG Hemoglobin Oxyhemoglobin Sodium Potassium Chloride Carbon Dioxide BUN Creatinine Glucose POC Glucose 191 H 239 H Lactic Acid Calcium Ionized Calcium Phosphorus Magnesium Direct Bilirubin AST ALT Alkaline Phosphatase Lactate Dehydrogenase Troponin T C-Reactive Protein Total Protein Albumin Prealbumin Triglycerides Cholesterol LDL Cholesterol Direct HDL Cholesterol 25-OH Vitamin D Total PTH Intact Urine pH Urine WBC (Auto) Urine Creatinine Urine Total Protein Fluid Total Protein Vancomycin Trough Rheumatoid Factor Complement C4 Miscellaneous Test Crossmatch 09/11/16 09/12/16 09/12/16 23:52 05:09 05:32 WBC RBC Hgb Hct MCV MCH MCHC RDW Plt Count Lymph % (Auto) [place] % (Auto) Lymph # [place] # Baso # Seg Neutrophils % Seg Neuts % (Manual) Lymphocytes % (Manual) Monocytes % (Manual) Eosinophils % (Manual) Basophils % (Manual) Nucleated RBC % Seg Neutrophils # Seg Neutrophils # Man Lymphocytes # (Manual) Monocytes # (Manual) Eosinophils # (Manual) Basophils # (Manual) PT INR Fibrinogen dRVVT Confirm Interp Factor V Activity POC ABG pH POC ABG pCO2 34.6 L POC ABG pO2 ABG pO2 ABG HCO3 ABG Base Excess ABG Hemoglobin Oxyhemoglobin Sodium Potassium Chloride Carbon Dioxide BUN Creatinine Glucose POC Glucose 265 H 184 H Lactic Acid Calcium Ionized Calcium Phosphorus Magnesium Direct Bilirubin AST ALT Alkaline Phosphatase Lactate Dehydrogenase Troponin T C-Reactive Protein Total Protein Albumin Prealbumin Triglycerides Cholesterol LDL Cholesterol Direct HDL Cholesterol 25-OH Vitamin D Total PTH Intact Urine pH Urine WBC (Auto) Urine Creatinine Urine Total Protein Fluid Total Protein Vancomycin Trough Rheumatoid Factor Complement C4 Miscellaneous Test Crossmatch 09/12/16 09/12/16 09/12/16 06:45 06:45 07:22 WBC 31.7 H RBC 3.54 L Hgb 8.3 L Hct 25.9 L MCV 73 L MCH 23 L MCHC RDW 18.9 H Plt Count Lymph % (Auto) [place] % (Auto) Lymph # [place] # Baso # Seg Neutrophils % Seg Neuts % (Manual) 88.5 H Lymphocytes % (Manual) 4.5 L Monocytes % (Manual) Eosinophils % (Manual) Basophils % (Manual) Nucleated RBC % Seg Neutrophils # Seg Neutrophils # Man 28.1 H Lymphocytes # (Manual) Monocytes # (Manual) 1.0 H Eosinophils # (Manual) Basophils # (Manual) PT INR Fibrinogen dRVVT Confirm Interp Factor V Activity POC ABG pH POC ABG pCO2 POC ABG pO2 ABG pO2 ABG HCO3 ABG Base Excess ABG Hemoglobin Oxyhemoglobin Sodium Potassium Chloride Carbon Dioxide 20 L BUN 115 H Creatinine 2.7 H Glucose 165 H POC Glucose Lactic Acid Calcium 8.0 L Ionized Calcium Phosphorus Magnesium Direct Bilirubin AST ALT Alkaline Phosphatase Lactate Dehydrogenase Troponin T C-Reactive Protein Total Protein Albumin Prealbumin Triglycerides 217 H Cholesterol LDL Cholesterol Direct HDL Cholesterol 25-OH Vitamin D Total PTH Intact Urine pH Urine WBC (Auto) Urine Creatinine Urine Total Protein Fluid Total Protein Vancomycin Trough Rheumatoid Factor Complement C4 Miscellaneous Test Crossmatch 09/12/16 09/12/16 09/12/16 07:22 09:59 12:21 WBC RBC Hgb Hct MCV MCH MCHC RDW Plt Count Lymph % (Auto) [place] % (Auto) Lymph # [place] # Baso # Seg Neutrophils % Seg Neuts % (Manual) Lymphocytes % (Manual) Monocytes % (Manual) Eosinophils % (Manual) Basophils % (Manual) Nucleated RBC % Seg Neutrophils # Seg Neutrophils # Man Lymphocytes # (Manual) Monocytes # (Manual) Eosinophils # (Manual) Basophils # (Manual) PT INR Fibrinogen dRVVT Confirm Interp Positive H Factor V Activity POC ABG pH POC ABG pCO2 POC ABG pO2 ABG pO2 ABG HCO3 ABG Base Excess ABG Hemoglobin Oxyhemoglobin Sodium Potassium Chloride Carbon Dioxide BUN Creatinine Glucose POC Glucose 224 H Lactic Acid Calcium Ionized Calcium Phosphorus Magnesium Direct Bilirubin AST ALT Alkaline Phosphatase Lactate Dehydrogenase Troponin T C-Reactive Protein 1.70 H Total Protein Albumin Prealbumin Triglycerides Cholesterol LDL Cholesterol Direct HDL Cholesterol 25-OH Vitamin D Total PTH Intact Urine pH Urine WBC (Auto) Urine Creatinine Urine Total Protein Fluid Total Protein Vancomycin Trough Rheumatoid Factor Complement C4 Miscellaneous Test Crossmatch 09/12/16 09/12/16 09/13/16 16:51 23:28 04:00 WBC 45.0 H* RBC Hgb 9.4 L Hct MCV 75 L MCH 23 L MCHC RDW 19.0 H Plt Count 470 H Lymph % (Auto) [place] % (Auto) Lymph # [place] # Baso # Seg Neutrophils % Seg Neuts % (Manual) 89.0 H Lymphocytes % (Manual) 5.0 L Monocytes % (Manual) Eosinophils % (Manual) Basophils % (Manual) Nucleated RBC % Seg Neutrophils # Seg Neutrophils # Man 40.1 H Lymphocytes # (Manual) Monocytes # (Manual) Eosinophils # (Manual) Basophils # (Manual) PT INR Fibrinogen dRVVT Confirm Interp Factor V Activity POC ABG pH POC ABG pCO2 POC ABG pO2 ABG pO2 ABG HCO3 ABG Base Excess ABG Hemoglobin Oxyhemoglobin Sodium Potassium Chloride Carbon Dioxide BUN Creatinine Glucose POC Glucose 169 H 150 H Lactic Acid Calcium Ionized Calcium Phosphorus Magnesium Direct Bilirubin AST ALT Alkaline Phosphatase Lactate Dehydrogenase Troponin T C-Reactive Protein Total Protein Albumin Prealbumin Triglycerides Cholesterol LDL Cholesterol Direct HDL Cholesterol 25-OH Vitamin D Total PTH Intact Urine pH Urine WBC (Auto) Urine Creatinine Urine Total Protein Fluid Total Protein Vancomycin Trough Rheumatoid Factor Complement C4 Miscellaneous Test Crossmatch 09/13/16 09/13/16 09/13/16 04:00 11:26 17:31 WBC RBC Hgb Hct MCV MCH MCHC RDW Plt Count Lymph % (Auto) [place] % (Auto) Lymph # [place] # Baso # Seg Neutrophils % Seg Neuts % (Manual) Lymphocytes % (Manual) Monocytes % (Manual) Eosinophils % (Manual) Basophils % (Manual) Nucleated RBC % Seg Neutrophils # Seg Neutrophils # Man Lymphocytes # (Manual) Monocytes # (Manual) Eosinophils # (Manual) Basophils # (Manual) PT INR Fibrinogen dRVVT Confirm Interp Factor V Activity POC ABG pH POC ABG pCO2 POC ABG pO2 ABG pO2 ABG HCO3 ABG Base Excess ABG Hemoglobin Oxyhemoglobin Sodium Potassium Chloride Carbon Dioxide 20 L BUN 116 H Creatinine 3.0 H Glucose 172 H POC Glucose 140 H 183 H Lactic Acid Calcium Ionized Calcium Phosphorus Magnesium Direct Bilirubin AST ALT Alkaline Phosphatase Lactate Dehydrogenase Troponin T C-Reactive Protein Total Protein 6.2 L Albumin 2.9 L Prealbumin Triglycerides Cholesterol LDL Cholesterol Direct HDL Cholesterol 25-OH Vitamin D Total PTH Intact Urine pH Urine WBC (Auto) Urine Creatinine Urine Total Protein Fluid Total Protein Vancomycin Trough Rheumatoid Factor Complement C4 Miscellaneous Test Crossmatch 09/13/16 09/14/16 09/14/16 23:23 04:06 04:07 WBC 29.4 H RBC Hgb 8.9 L Hct 27.3 L MCV 75 L MCH 24 L MCHC RDW 19.1 H Plt Count Lymph % (Auto) [place] % (Auto) Lymph # [place] # Baso # Seg Neutrophils % Seg Neuts % (Manual) 84.0 H Lymphocytes % (Manual) 6.0 L Monocytes % (Manual) 9.0 H Eosinophils % (Manual) Basophils % (Manual) Nucleated RBC % Seg Neutrophils # Seg Neutrophils # Man 24.7 H Lymphocytes # (Manual) Monocytes # (Manual) 2.6 H Eosinophils # (Manual) Basophils # (Manual) PT INR Fibrinogen dRVVT Confirm Interp Factor V Activity POC ABG pH 7.342 L POC ABG pCO2 POC ABG pO2 116 H ABG pO2 ABG HCO3 ABG Base Excess ABG Hemoglobin Oxyhemoglobin Sodium Potassium Chloride Carbon Dioxide BUN Creatinine Glucose POC Glucose 154 H Lactic Acid Calcium Ionized Calcium Phosphorus Magnesium Direct Bilirubin AST ALT Alkaline Phosphatase Lactate Dehydrogenase Troponin T C-Reactive Protein Total Protein Albumin Prealbumin Triglycerides Cholesterol LDL Cholesterol Direct HDL Cholesterol 25-OH Vitamin D Total PTH Intact Urine pH Urine WBC (Auto) Urine Creatinine Urine Total Protein Fluid Total Protein Vancomycin Trough Rheumatoid Factor Complement C4 Miscellaneous Test Crossmatch 09/14/16 09/14/16 09/14/16 04:07 05:29 12:19 WBC RBC Hgb Hct MCV MCH MCHC RDW Plt Count Lymph % (Auto) [place] % (Auto) Lymph # [place] # Baso # Seg Neutrophils % Seg Neuts % (Manual) Lymphocytes % (Manual) Monocytes % (Manual) Eosinophils % (Manual) Basophils % (Manual) Nucleated RBC % Seg Neutrophils # Seg Neutrophils # Man Lymphocytes # (Manual) Monocytes # (Manual) Eosinophils # (Manual) Basophils # (Manual) PT INR Fibrinogen dRVVT Confirm Interp Factor V Activity POC ABG pH POC ABG pCO2 POC ABG pO2 ABG pO2 ABG HCO3 ABG Base Excess ABG Hemoglobin Oxyhemoglobin Sodium 136 L Potassium Chloride Carbon Dioxide 18 L BUN 121 H Creatinine 2.8 H Glucose 214 H POC Glucose 239 H 181 H Lactic Acid Calcium Ionized Calcium Phosphorus Magnesium Direct Bilirubin AST ALT Alkaline Phosphatase Lactate Dehydrogenase Troponin T C-Reactive Protein Total Protein Albumin Prealbumin Triglycerides Cholesterol LDL Cholesterol Direct HDL Cholesterol 25-OH Vitamin D Total PTH Intact Urine pH Urine WBC (Auto) Urine Creatinine Urine Total Protein Fluid Total Protein Vancomycin Trough Rheumatoid Factor Complement C4 Miscellaneous Test Crossmatch 09/14/16 09/14/16 09/15/16 18:12 23:37 05:00 WBC 26.1 H RBC 3.05 L Hgb 7.2 L Hct 22.9 L MCV 75 L MCH 24 L MCHC RDW 19.0 H Plt Count Lymph % (Auto) [place] % (Auto) Lymph # [place] # Baso # Seg Neutrophils % Seg Neuts % (Manual) Lymphocytes % (Manual) Monocytes % (Manual) Eosinophils % (Manual) Basophils % (Manual) Nucleated RBC % Seg Neutrophils # Seg Neutrophils # Man Lymphocytes # (Manual) Monocytes # (Manual) Eosinophils # (Manual) Basophils # (Manual) PT INR Fibrinogen dRVVT Confirm Interp Factor V Activity POC ABG pH POC ABG pCO2 POC ABG pO2 ABG pO2 ABG HCO3 ABG Base Excess ABG Hemoglobin Oxyhemoglobin Sodium Potassium Chloride Carbon Dioxide BUN Creatinine Glucose POC Glucose 266 H 154 H Lactic Acid Calcium Ionized Calcium Phosphorus Magnesium Direct Bilirubin AST ALT Alkaline Phosphatase Lactate Dehydrogenase Troponin T C-Reactive Protein Total Protein Albumin Prealbumin Triglycerides Cholesterol LDL Cholesterol Direct HDL Cholesterol 25-OH Vitamin D Total PTH Intact Urine pH Urine WBC (Auto) Urine Creatinine Urine Total Protein Fluid Total Protein Vancomycin Trough Rheumatoid Factor Complement C4 Miscellaneous Test Crossmatch 09/15/16 09/15/16 09/15/16 05:00 05:17 12:45 WBC RBC Hgb Hct MCV MCH MCHC RDW Plt Count Lymph % (Auto) [place] % (Auto) Lymph # [place] # Baso # Seg Neutrophils % Seg Neuts % (Manual) Lymphocytes % (Manual) Monocytes % (Manual) Eosinophils % (Manual) Basophils % (Manual) Nucleated RBC % Seg Neutrophils # Seg Neutrophils # Man Lymphocytes # (Manual) Monocytes # (Manual) Eosinophils # (Manual) Basophils # (Manual) PT INR Fibrinogen dRVVT Confirm Interp Factor V Activity POC ABG pH POC ABG pCO2 POC ABG pO2 ABG pO2 ABG HCO3 ABG Base Excess ABG Hemoglobin Oxyhemoglobin Sodium Potassium 5.2 H Chloride Carbon Dioxide 18 L BUN 139 H Creatinine 3.7 H Glucose 227 H POC Glucose 226 H 244 H Lactic Acid Calcium 8.3 L Ionized Calcium Phosphorus Magnesium Direct Bilirubin AST ALT Alkaline Phosphatase Lactate Dehydrogenase Troponin T C-Reactive Protein Total Protein Albumin Prealbumin Triglycerides Cholesterol LDL Cholesterol Direct HDL Cholesterol 25-OH Vitamin D Total PTH Intact Urine pH Urine WBC (Auto) Urine Creatinine Urine Total Protein Fluid Total Protein Vancomycin Trough Rheumatoid Factor Complement C4 Miscellaneous Test Crossmatch 09/15/16 09/15/16 09/15/16 14:32 17:33 23:35 WBC RBC Hgb Hct MCV MCH MCHC RDW Plt Count Lymph % (Auto) [place] % (Auto) Lymph # [place] # Baso # Seg Neutrophils % Seg Neuts % (Manual) Lymphocytes % (Manual) Monocytes % (Manual) Eosinophils % (Manual) Basophils % (Manual) Nucleated RBC % Seg Neutrophils # Seg Neutrophils # Man Lymphocytes # (Manual) Monocytes # (Manual) Eosinophils # (Manual) Basophils # (Manual) PT INR Fibrinogen dRVVT Confirm Interp Factor V Activity POC ABG pH POC ABG pCO2 27.7 L POC ABG pO2 120 H ABG pO2 ABG HCO3 ABG Base Excess ABG Hemoglobin Oxyhemoglobin Sodium Potassium Chloride Carbon Dioxide BUN Creatinine Glucose POC Glucose 232 H 167 H Lactic Acid Calcium Ionized Calcium Phosphorus Magnesium Direct Bilirubin AST ALT Alkaline Phosphatase Lactate Dehydrogenase Troponin T C-Reactive Protein Total Protein Albumin Prealbumin Triglycerides Cholesterol LDL Cholesterol Direct HDL Cholesterol 25-OH Vitamin D Total PTH Intact Urine pH Urine WBC (Auto) Urine Creatinine Urine Total Protein Fluid Total Protein Vancomycin Trough Rheumatoid Factor Complement C4 Miscellaneous Test Crossmatch 09/16/16 09/16/16 09/16/16 03:58 10:27 10:27 WBC 19.0 H RBC 2.77 L Hgb 6.5 L Hct 20.9 L MCV 76 L MCH 23 L MCHC RDW 19.3 H Plt Count Lymph % (Auto) 11.0 L [place] % (Auto) Lymph # [place] # 1.1 H Baso # Seg Neutrophils % 82.5 H Seg Neuts % (Manual) Lymphocytes % (Manual) Monocytes % (Manual) Eosinophils % (Manual) Basophils % (Manual) Nucleated RBC % Seg Neutrophils # 15.7 H Seg Neutrophils # Man Lymphocytes # (Manual) Monocytes # (Manual) Eosinophils # (Manual) Basophils # (Manual) PT INR Fibrinogen dRVVT Confirm Interp Factor V Activity POC ABG pH POC ABG pCO2 POC ABG pO2 ABG pO2 ABG HCO3 ABG Base Excess ABG Hemoglobin Oxyhemoglobin Sodium Potassium Chloride 109.3 H Carbon Dioxide 18 L BUN 139 H Creatinine 4.1 H Glucose 144 H POC Glucose 146 H Lactic Acid Calcium 8.1 L Ionized Calcium Phosphorus Magnesium Direct Bilirubin AST ALT Alkaline Phosphatase Lactate Dehydrogenase Troponin T C-Reactive Protein Total Protein Albumin Prealbumin Triglycerides Cholesterol LDL Cholesterol Direct HDL Cholesterol 25-OH Vitamin D Total PTH Intact Urine pH Urine WBC (Auto) Urine Creatinine Urine Total Protein Fluid Total Protein Vancomycin Trough Rheumatoid Factor Complement C4 Miscellaneous Test Crossmatch 09/16/16 09/16/16 09/16/16 12:04 12:10 13:55 WBC RBC Hgb Hct MCV MCH MCHC RDW Plt Count Lymph % (Auto) [place] % (Auto) Lymph # [place] # Baso # Seg Neutrophils % Seg Neuts % (Manual) Lymphocytes % (Manual) Monocytes % (Manual) Eosinophils % (Manual) Basophils % (Manual) Nucleated RBC % Seg Neutrophils # Seg Neutrophils # Man Lymphocytes # (Manual) Monocytes # (Manual) Eosinophils # (Manual) Basophils # (Manual) PT INR Fibrinogen dRVVT Confirm Interp Factor V Activity POC ABG pH POC ABG pCO2 32.9 L POC ABG pO2 ABG pO2 ABG HCO3 ABG Base Excess ABG Hemoglobin Oxyhemoglobin Sodium Potassium Chloride Carbon Dioxide BUN Creatinine Glucose POC Glucose 185 H Lactic Acid Calcium Ionized Calcium Phosphorus Magnesium Direct Bilirubin AST ALT Alkaline Phosphatase Lactate Dehydrogenase Troponin T C-Reactive Protein Total Protein Albumin Prealbumin Triglycerides Cholesterol LDL Cholesterol Direct HDL Cholesterol 25-OH Vitamin D Total PTH Intact Urine pH Urine WBC (Auto) Urine Creatinine Urine Total Protein Fluid Total Protein Vancomycin Trough Rheumatoid Factor Complement C4 Miscellaneous Test Crossmatch See Detail 09/16/16 09/16/16 09/16/16 17:55 19:19 23:48 WBC RBC Hgb Hct MCV MCH MCHC RDW Plt Count Lymph % (Auto) [place] % (Auto) Lymph # [place] # Baso # Seg Neutrophils % Seg Neuts % (Manual) Lymphocytes % (Manual) Monocytes % (Manual) Eosinophils % (Manual) Basophils % (Manual) Nucleated RBC % Seg Neutrophils # Seg Neutrophils # Man Lymphocytes # (Manual) Monocytes # (Manual) Eosinophils # (Manual) Basophils # (Manual) PT INR Fibrinogen dRVVT Confirm Interp Factor V Activity POC ABG pH POC ABG pCO2 POC ABG pO2 ABG pO2 ABG HCO3 ABG Base Excess ABG Hemoglobin Oxyhemoglobin Sodium Potassium Chloride Carbon Dioxide BUN Creatinine Glucose POC Glucose 222 H 107 H Lactic Acid Calcium Ionized Calcium Phosphorus Magnesium Direct Bilirubin AST ALT Alkaline Phosphatase Lactate Dehydrogenase Troponin T C-Reactive Protein Total Protein Albumin Prealbumin Triglycerides Cholesterol LDL Cholesterol Direct HDL Cholesterol 25-OH Vitamin D Total PTH Intact Urine pH Urine WBC (Auto) Urine Creatinine 47.4 H Urine Total Protein 16 H Fluid Total Protein Vancomycin Trough Rheumatoid Factor Complement C4 Miscellaneous Test Crossmatch 09/17/16 09/17/16 09/17/16 03:45 03:45 04:55 WBC 19.6 H RBC 3.41 L Hgb 8.5 L Hct 26.7 L MCV 78 L MCH 25 L MCHC RDW 19.9 H Plt Count Lymph % (Auto) 9.3 L [place] % (Auto) Lymph # [place] # 1.2 H Baso # Seg Neutrophils % 83.9 H Seg Neuts % (Manual) Lymphocytes % (Manual) Monocytes % (Manual) Eosinophils % (Manual) Basophils % (Manual) Nucleated RBC % Seg Neutrophils # 16.4 H Seg Neutrophils # Man Lymphocytes # (Manual) Monocytes # (Manual) Eosinophils # (Manual) Basophils # (Manual) PT INR Fibrinogen dRVVT Confirm Interp Factor V Activity POC ABG pH POC ABG pCO2 POC ABG pO2 ABG pO2 ABG HCO3 ABG Base Excess ABG Hemoglobin Oxyhemoglobin Sodium 146 H Potassium 5.1 H Chloride 110.9 H Carbon Dioxide 16 L BUN 146 H Creatinine 4.0 H Glucose 108 H POC Glucose 133 H Lactic Acid Calcium Ionized Calcium Phosphorus Magnesium 3.00 H Direct Bilirubin AST ALT Alkaline Phosphatase Lactate Dehydrogenase Troponin T C-Reactive Protein Total Protein Albumin Prealbumin Triglycerides Cholesterol LDL Cholesterol Direct HDL Cholesterol 25-OH Vitamin D Total PTH Intact Urine pH Urine WBC (Auto) Urine Creatinine Urine Total Protein Fluid Total Protein Vancomycin Trough Rheumatoid Factor Complement C4 Miscellaneous Test Crossmatch 09/17/16 09/17/16 09/17/16 11:15 17:33 23:47 WBC RBC Hgb Hct MCV MCH MCHC RDW Plt Count Lymph % (Auto) [place] % (Auto) Lymph # [place] # Baso # Seg Neutrophils % Seg Neuts % (Manual) Lymphocytes % (Manual) Monocytes % (Manual) Eosinophils % (Manual) Basophils % (Manual) Nucleated RBC % Seg Neutrophils # Seg Neutrophils # Man Lymphocytes # (Manual) Monocytes # (Manual) Eosinophils # (Manual) Basophils # (Manual) PT INR Fibrinogen dRVVT Confirm Interp Factor V Activity POC ABG pH POC ABG pCO2 POC ABG pO2 ABG pO2 ABG HCO3 ABG Base Excess ABG Hemoglobin Oxyhemoglobin Sodium Potassium Chloride Carbon Dioxide BUN Creatinine Glucose POC Glucose 176 H 246 H 148 H Lactic Acid Calcium Ionized Calcium Phosphorus Magnesium Direct Bilirubin AST ALT Alkaline Phosphatase Lactate Dehydrogenase Troponin T C-Reactive Protein Total Protein Albumin Prealbumin Triglycerides Cholesterol LDL Cholesterol Direct HDL Cholesterol 25-OH Vitamin D Total PTH Intact Urine pH Urine WBC (Auto) Urine Creatinine Urine Total Protein Fluid Total Protein Vancomycin Trough Rheumatoid Factor Complement C4 Miscellaneous Test Crossmatch 09/18/16 09/18/16 09/18/16 05:33 08:31 08:31 WBC 18.0 H RBC 3.17 L Hgb 9.0 L Hct 25.7 L MCV MCH MCHC 35 H RDW 20.4 H Plt Count Lymph % (Auto) [place] % (Auto) Lymph # [place] # Baso # Seg Neutrophils % Seg Neuts % (Manual) Lymphocytes % (Manual) Monocytes % (Manual) Eosinophils % (Manual) Basophils % (Manual) Nucleated RBC % Seg Neutrophils # Seg Neutrophils # Man Lymphocytes # (Manual) Monocytes # (Manual) Eosinophils # (Manual) Basophils # (Manual) PT INR Fibrinogen dRVVT Confirm Interp Factor V Activity POC ABG pH POC ABG pCO2 POC ABG pO2 ABG pO2 ABG HCO3 ABG Base Excess ABG Hemoglobin Oxyhemoglobin Sodium Potassium Chloride Carbon Dioxide 15 L BUN 124 H Creatinine 3.8 H Glucose POC Glucose 120 H Lactic Acid Calcium 8.1 L Ionized Calcium Phosphorus Magnesium Direct Bilirubin AST ALT Alkaline Phosphatase Lactate Dehydrogenase Troponin T C-Reactive Protein Total Protein Albumin Prealbumin Triglycerides Cholesterol LDL Cholesterol Direct HDL Cholesterol 25-OH Vitamin D Total PTH Intact Urine pH Urine WBC (Auto) Urine Creatinine Urine Total Protein Fluid Total Protein Vancomycin Trough Rheumatoid Factor Complement C4 Miscellaneous Test Crossmatch 09/18/16 09/18/16 09/18/16 12:03 15:34 17:50 WBC RBC Hgb Hct MCV MCH MCHC RDW Plt Count Lymph % (Auto) [place] % (Auto) Lymph # [place] # Baso # Seg Neutrophils % Seg Neuts % (Manual) Lymphocytes % (Manual) Monocytes % (Manual) Eosinophils % (Manual) Basophils % (Manual) Nucleated RBC % Seg Neutrophils # Seg Neutrophils # Man Lymphocytes # (Manual) Monocytes # (Manual) Eosinophils # (Manual) Basophils # (Manual) PT INR Fibrinogen dRVVT Confirm Interp Factor V Activity POC ABG pH POC ABG pCO2 25.7 L POC ABG pO2 66 L ABG pO2 ABG HCO3 ABG Base Excess ABG Hemoglobin Oxyhemoglobin Sodium Potassium Chloride Carbon Dioxide BUN Creatinine Glucose POC Glucose 156 H 220 H Lactic Acid Calcium Ionized Calcium Phosphorus Magnesium Direct Bilirubin AST ALT Alkaline Phosphatase Lactate Dehydrogenase Troponin T C-Reactive Protein Total Protein Albumin Prealbumin Triglycerides Cholesterol LDL Cholesterol Direct HDL Cholesterol 25-OH Vitamin D Total PTH Intact Urine pH Urine WBC (Auto) Urine Creatinine Urine Total Protein Fluid Total Protein Vancomycin Trough Rheumatoid Factor Complement C4 Miscellaneous Test Crossmatch 09/19/16 09/19/16 09/19/16 06:21 09:50 09:50 WBC 17.1 H RBC 3.49 L Hgb 9.0 L Hct 28.1 L MCV MCH 26 L MCHC RDW 20.8 H Plt Count Lymph % (Auto) 11.5 L [place] % (Auto) 7.5 H Lymph # [place] # 1.3 H Baso # Seg Neutrophils % 79.8 H Seg Neuts % (Manual) Lymphocytes % (Manual) Monocytes % (Manual) Eosinophils % (Manual) Basophils % (Manual) Nucleated RBC % Seg Neutrophils # 13.7 H Seg Neutrophils # Man Lymphocytes # (Manual) Monocytes # (Manual) Eosinophils # (Manual) Basophils # (Manual) PT INR Fibrinogen dRVVT Confirm Interp Factor V Activity POC ABG pH POC ABG pCO2 POC ABG pO2 ABG pO2 ABG HCO3 ABG Base Excess ABG Hemoglobin Oxyhemoglobin Sodium Potassium Chloride 108.6 H Carbon Dioxide 15 L BUN 125 H Creatinine 4.1 H Glucose 124 H POC Glucose 119 H Lactic Acid Calcium Ionized Calcium Phosphorus Magnesium Direct Bilirubin AST ALT Alkaline Phosphatase Lactate Dehydrogenase Troponin T C-Reactive Protein Total Protein Albumin Prealbumin Triglycerides Cholesterol LDL Cholesterol Direct HDL Cholesterol 25-OH Vitamin D Total PTH Intact Urine pH Urine WBC (Auto) Urine Creatinine Urine Total Protein Fluid Total Protein Vancomycin Trough Rheumatoid Factor Complement C4 Miscellaneous Test Crossmatch 09/19/16 09/19/16 09/19/16 11:25 17:53 23:36 WBC RBC Hgb Hct MCV MCH MCHC RDW Plt Count Lymph % (Auto) [place] % (Auto) Lymph # [place] # Baso # Seg Neutrophils % Seg Neuts % (Manual) Lymphocytes % (Manual) Monocytes % (Manual) Eosinophils % (Manual) Basophils % (Manual) Nucleated RBC % Seg Neutrophils # Seg Neutrophils # Man Lymphocytes # (Manual) Monocytes # (Manual) Eosinophils # (Manual) Basophils # (Manual) PT INR Fibrinogen dRVVT Confirm Interp Factor V Activity POC ABG pH POC ABG pCO2 POC ABG pO2 ABG pO2 ABG HCO3 ABG Base Excess ABG Hemoglobin Oxyhemoglobin Sodium Potassium Chloride Carbon Dioxide BUN Creatinine Glucose POC Glucose 160 H 245 H 121 H Lactic Acid Calcium Ionized Calcium Phosphorus Magnesium Direct Bilirubin AST ALT Alkaline Phosphatase Lactate Dehydrogenase Troponin T C-Reactive Protein Total Protein Albumin Prealbumin Triglycerides Cholesterol LDL Cholesterol Direct HDL Cholesterol 25-OH Vitamin D Total PTH Intact Urine pH Urine WBC (Auto) Urine Creatinine Urine Total Protein Fluid Total Protein Vancomycin Trough Rheumatoid Factor Complement C4 Miscellaneous Test Crossmatch 09/20/16 09/20/16 09/20/16 04:10 04:10 04:10 WBC 17.0 H RBC 3.21 L Hgb 8.2 L Hct 25.5 L MCV MCH 26 L MCHC RDW 20.9 H Plt Count Lymph % (Auto) [place] % (Auto) Lymph # [place] # Baso # Seg Neutrophils % Seg Neuts % (Manual) Lymphocytes % (Manual) Monocytes % (Manual) Eosinophils % (Manual) Basophils % (Manual) Nucleated RBC % Seg Neutrophils # Seg Neutrophils # Man Lymphocytes # (Manual) Monocytes # (Manual) Eosinophils # (Manual) Basophils # (Manual) PT INR Fibrinogen dRVVT Confirm Interp Factor V Activity POC ABG pH POC ABG pCO2 POC ABG pO2 ABG pO2 ABG HCO3 ABG Base Excess ABG Hemoglobin Oxyhemoglobin Sodium Potassium Chloride 111.0 H Carbon Dioxide 16 L BUN 129 H Creatinine 3.7 H Glucose 115 H POC Glucose Lactic Acid Calcium 8.2 L Ionized Calcium Phosphorus Magnesium Direct Bilirubin AST ALT Alkaline Phosphatase Lactate Dehydrogenase Troponin T C-Reactive Protein Total Protein Albumin Prealbumin Triglycerides 243 H Cholesterol LDL Cholesterol Direct HDL Cholesterol 25-OH Vitamin D Total PTH Intact Urine pH Urine WBC (Auto) Urine Creatinine Urine Total Protein Fluid Total Protein Vancomycin Trough Rheumatoid Factor Complement C4 Miscellaneous Test Crossmatch 09/20/16 09/20/16 09/20/16 05:40 11:52 16:50 WBC RBC Hgb Hct MCV MCH MCHC RDW Plt Count Lymph % (Auto) [place] % (Auto) Lymph # [place] # Baso # Seg Neutrophils % Seg Neuts % (Manual) Lymphocytes % (Manual) Monocytes % (Manual) Eosinophils % (Manual) Basophils % (Manual) Nucleated RBC % Seg Neutrophils # Seg Neutrophils # Man Lymphocytes # (Manual) Monocytes # (Manual) Eosinophils # (Manual) Basophils # (Manual) PT INR Fibrinogen dRVVT Confirm Interp Factor V Activity POC ABG pH POC ABG pCO2 POC ABG pO2 ABG pO2 ABG HCO3 ABG Base Excess ABG Hemoglobin Oxyhemoglobin Sodium Potassium Chloride Carbon Dioxide BUN Creatinine Glucose POC Glucose 131 H 183 H 236 H Lactic Acid Calcium Ionized Calcium Phosphorus Magnesium Direct Bilirubin AST ALT Alkaline Phosphatase Lactate Dehydrogenase Troponin T C-Reactive Protein Total Protein Albumin Prealbumin Triglycerides Cholesterol LDL Cholesterol Direct HDL Cholesterol 25-OH Vitamin D Total PTH Intact Urine pH Urine WBC (Auto) Urine Creatinine Urine Total Protein Fluid Total Protein Vancomycin Trough Rheumatoid Factor Complement C4 Miscellaneous Test Crossmatch 09/20/16 09/21/16 09/21/16 23:51 03:30 04:44 WBC RBC Hgb Hct MCV MCH MCHC RDW Plt Count Lymph % (Auto) [place] % (Auto) Lymph # [place] # Baso # Seg Neutrophils % Seg Neuts % (Manual) Lymphocytes % (Manual) Monocytes % (Manual) Eosinophils % (Manual) Basophils % (Manual) Nucleated RBC % Seg Neutrophils # Seg Neutrophils # Man Lymphocytes # (Manual) Monocytes # (Manual) Eosinophils # (Manual) Basophils # (Manual) PT INR Fibrinogen dRVVT Confirm Interp Factor V Activity POC ABG pH POC ABG pCO2 POC ABG pO2 ABG pO2 ABG HCO3 ABG Base Excess ABG Hemoglobin Oxyhemoglobin Sodium Potassium Chloride Carbon Dioxide BUN Creatinine Glucose POC Glucose 114 H 141 H Lactic Acid Calcium Ionized Calcium Phosphorus Magnesium 2.70 H Direct Bilirubin AST ALT Alkaline Phosphatase Lactate Dehydrogenase Troponin T C-Reactive Protein Total Protein Albumin Prealbumin Triglycerides Cholesterol LDL Cholesterol Direct HDL Cholesterol 25-OH Vitamin D Total PTH Intact Urine pH Urine WBC (Auto) Urine Creatinine Urine Total Protein Fluid Total Protein Vancomycin Trough Rheumatoid Factor Complement C4 Miscellaneous Test Crossmatch 09/21/16 09/21/16 09/21/16 07:45 07:45 10:01 WBC 13.8 H RBC 2.94 L Hgb 7.5 L Hct 23.5 L MCV MCH 26 L MCHC RDW 21.2 H Plt Count Lymph % (Auto) 6.9 L [place] % (Auto) 9.4 H Lymph # 0.9 L [place] # 1.3 H Baso # Seg Neutrophils % 83.2 H Seg Neuts % (Manual) Lymphocytes % (Manual) Monocytes % (Manual) Eosinophils % (Manual) Basophils % (Manual) Nucleated RBC % Seg Neutrophils # 11.5 H Seg Neutrophils # Man Lymphocytes # (Manual) Monocytes # (Manual) Eosinophils # (Manual) Basophils # (Manual) PT INR Fibrinogen dRVVT Confirm Interp Factor V Activity POC ABG pH 7.308 L POC ABG pCO2 31.9 L POC ABG pO2 148 H ABG pO2 ABG HCO3 ABG Base Excess ABG Hemoglobin Oxyhemoglobin Sodium 147 H Potassium Chloride 114.2 H Carbon Dioxide 15 L BUN 120 H Creatinine 3.9 H Glucose 156 H POC Glucose Lactic Acid Calcium 8.2 L Ionized Calcium Phosphorus Magnesium Direct Bilirubin AST ALT Alkaline Phosphatase Lactate Dehydrogenase Troponin T C-Reactive Protein Total Protein Albumin Prealbumin Triglycerides Cholesterol LDL Cholesterol Direct HDL Cholesterol 25-OH Vitamin D Total PTH Intact Urine pH Urine WBC (Auto) Urine Creatinine Urine Total Protein Fluid Total Protein Vancomycin Trough Rheumatoid Factor Complement C4 Miscellaneous Test Crossmatch 09/21/16 09/21/16 09/21/16 12:00 12:03 13:00 WBC RBC Hgb Hct MCV MCH MCHC RDW Plt Count Lymph % (Auto) [place] % (Auto) Lymph # [place] # Baso # Seg Neutrophils % Seg Neuts % (Manual) Lymphocytes % (Manual) Monocytes % (Manual) Eosinophils % (Manual) Basophils % (Manual) Nucleated RBC % Seg Neutrophils # Seg Neutrophils # Man Lymphocytes # (Manual) Monocytes # (Manual) Eosinophils # (Manual) Basophils # (Manual) PT INR Fibrinogen dRVVT Confirm Interp Factor V Activity POC ABG pH POC ABG pCO2 POC ABG pO2 ABG pO2 ABG HCO3 ABG Base Excess ABG Hemoglobin Oxyhemoglobin Sodium Potassium Chloride Carbon Dioxide BUN Creatinine Glucose POC Glucose 163 H Lactic Acid Calcium Ionized Calcium Phosphorus Magnesium Direct Bilirubin AST ALT Alkaline Phosphatase Lactate Dehydrogenase Troponin T C-Reactive Protein Total Protein Albumin Prealbumin Triglycerides Cholesterol LDL Cholesterol Direct HDL Cholesterol 25-OH Vitamin D Total PTH Intact Urine pH Urine WBC (Auto) Urine Creatinine 54.8 H Urine Total Protein Fluid Total Protein Vancomycin Trough 2.3 L Rheumatoid Factor Complement C4 Miscellaneous Test Crossmatch 09/21/16 09/21/16 09/22/16 16:51 23:17 06:27 WBC RBC Hgb Hct MCV MCH MCHC RDW Plt Count Lymph % (Auto) [place] % (Auto) Lymph # [place] # Baso # Seg Neutrophils % Seg Neuts % (Manual) Lymphocytes % (Manual) Monocytes % (Manual) Eosinophils % (Manual) Basophils % (Manual) Nucleated RBC % Seg Neutrophils # Seg Neutrophils # Man Lymphocytes # (Manual) Monocytes # (Manual) Eosinophils # (Manual) Basophils # (Manual) PT INR Fibrinogen dRVVT Confirm Interp Factor V Activity POC ABG pH POC ABG pCO2 POC ABG pO2 ABG pO2 ABG HCO3 ABG Base Excess ABG Hemoglobin Oxyhemoglobin Sodium Potassium Chloride Carbon Dioxide BUN Creatinine Glucose POC Glucose 206 H 114 H 115 H Lactic Acid Calcium Ionized Calcium Phosphorus Magnesium Direct Bilirubin AST ALT Alkaline Phosphatase Lactate Dehydrogenase Troponin T C-Reactive Protein Total Protein Albumin Prealbumin Triglycerides Cholesterol LDL Cholesterol Direct HDL Cholesterol 25-OH Vitamin D Total PTH Intact Urine pH Urine WBC (Auto) Urine Creatinine Urine Total Protein Fluid Total Protein Vancomycin Trough Rheumatoid Factor Complement C4 Miscellaneous Test Crossmatch 09/22/16 09/22/16 09/22/16 07:50 07:50 12:00 WBC 17.8 H RBC 3.04 L Hgb 8.0 L Hct 24.7 L MCV MCH 26 L MCHC RDW 21.6 H Plt Count Lymph % (Auto) [place] % (Auto) Lymph # [place] # Baso # Seg Neutrophils % Seg Neuts % (Manual) Lymphocytes % (Manual) Monocytes % (Manual) Eosinophils % (Manual) Basophils % (Manual) Nucleated RBC % Seg Neutrophils # Seg Neutrophils # Man Lymphocytes # (Manual) Monocytes # (Manual) Eosinophils # (Manual) Basophils # (Manual) PT INR Fibrinogen dRVVT Confirm Interp Factor V Activity POC ABG pH POC ABG pCO2 POC ABG pO2 ABG pO2 ABG HCO3 ABG Base Excess ABG Hemoglobin Oxyhemoglobin Sodium 150 H Potassium Chloride 118.2 H Carbon Dioxide 14 L BUN 111 H Creatinine 3.7 H Glucose 157 H POC Glucose 183 H Lactic Acid Calcium Ionized Calcium Phosphorus Magnesium Direct Bilirubin AST ALT Alkaline Phosphatase Lactate Dehydrogenase Troponin T C-Reactive Protein Total Protein Albumin Prealbumin Triglycerides Cholesterol LDL Cholesterol Direct HDL Cholesterol 25-OH Vitamin D Total PTH Intact Urine pH Urine WBC (Auto) Urine Creatinine Urine Total Protein Fluid Total Protein Vancomycin Trough Rheumatoid Factor Complement C4 Miscellaneous Test Crossmatch 09/22/16 09/22/16 09/23/16 17:29 23:10 05:00 WBC 19.2 H RBC 3.13 L Hgb 8.0 L Hct 25.2 L MCV MCH 26 L MCHC RDW 22.1 H Plt Count Lymph % (Auto) [place] % (Auto) Lymph # [place] # Baso # Seg Neutrophils % Seg Neuts % (Manual) 92.0 H Lymphocytes % (Manual) 3.0 L Monocytes % (Manual) Eosinophils % (Manual) Basophils % (Manual) Nucleated RBC % Seg Neutrophils # Seg Neutrophils # Man 17.7 H Lymphocytes # (Manual) 0.6 L Monocytes # (Manual) Eosinophils # (Manual) Basophils # (Manual) PT INR Fibrinogen dRVVT Confirm Interp Factor V Activity POC ABG pH POC ABG pCO2 POC ABG pO2 ABG pO2 ABG HCO3 ABG Base Excess ABG Hemoglobin Oxyhemoglobin Sodium Potassium Chloride Carbon Dioxide BUN Creatinine Glucose POC Glucose 197 H 169 H Lactic Acid Calcium Ionized Calcium Phosphorus Magnesium Direct Bilirubin AST ALT Alkaline Phosphatase Lactate Dehydrogenase Troponin T C-Reactive Protein Total Protein Albumin Prealbumin Triglycerides Cholesterol LDL Cholesterol Direct HDL Cholesterol 25-OH Vitamin D Total PTH Intact Urine pH Urine WBC (Auto) Urine Creatinine Urine Total Protein Fluid Total Protein Vancomycin Trough Rheumatoid Factor Complement C4 Miscellaneous Test Crossmatch 09/23/16 09/23/16 09/23/16 05:00 05:00 05:10 WBC RBC Hgb Hct MCV MCH MCHC RDW Plt Count Lymph % (Auto) [place] % (Auto) Lymph # [place] # Baso # Seg Neutrophils % Seg Neuts % (Manual) Lymphocytes % (Manual) Monocytes % (Manual) Eosinophils % (Manual) Basophils % (Manual) Nucleated RBC % Seg Neutrophils # Seg Neutrophils # Man Lymphocytes # (Manual) Monocytes # (Manual) Eosinophils # (Manual) Basophils # (Manual) PT INR Fibrinogen dRVVT Confirm Interp Factor V Activity POC ABG pH POC ABG pCO2 POC ABG pO2 ABG pO2 ABG HCO3 ABG Base Excess ABG Hemoglobin Oxyhemoglobin Sodium 147 H Potassium 3.2 L Chloride 115.7 H Carbon Dioxide 13 L BUN 111 H Creatinine 3.8 H Glucose 194 H POC Glucose 188 H Lactic Acid Calcium 7.3 L D Ionized Calcium Phosphorus Magnesium Direct Bilirubin AST ALT Alkaline Phosphatase Lactate Dehydrogenase Troponin T C-Reactive Protein 3.20 H Total Protein Albumin Prealbumin Triglycerides Cholesterol LDL Cholesterol Direct HDL Cholesterol 25-OH Vitamin D Total PTH Intact Urine pH Urine WBC (Auto) Urine Creatinine Urine Total Protein Fluid Total Protein Vancomycin Trough Rheumatoid Factor Complement C4 Miscellaneous Test Crossmatch 09/23/16 09/23/16 09/23/16 11:37 12:29 18:01 WBC RBC Hgb Hct MCV MCH MCHC RDW Plt Count Lymph % (Auto) [place] % (Auto) Lymph # [place] # Baso # Seg Neutrophils % Seg Neuts % (Manual) Lymphocytes % (Manual) Monocytes % (Manual) Eosinophils % (Manual) Basophils % (Manual) Nucleated RBC % Seg Neutrophils # Seg Neutrophils # Man Lymphocytes # (Manual) Monocytes # (Manual) Eosinophils # (Manual) Basophils # (Manual) PT INR Fibrinogen dRVVT Confirm Interp Factor V Activity POC ABG pH POC ABG pCO2 18.9 L POC ABG pO2 143 H ABG pO2 ABG HCO3 ABG Base Excess ABG Hemoglobin Oxyhemoglobin Sodium Potassium Chloride Carbon Dioxide BUN Creatinine Glucose POC Glucose 153 H 108 H Lactic Acid Calcium Ionized Calcium Phosphorus Magnesium Direct Bilirubin AST ALT Alkaline Phosphatase Lactate Dehydrogenase Troponin T C-Reactive Protein Total Protein Albumin Prealbumin Triglycerides Cholesterol LDL Cholesterol Direct HDL Cholesterol 25-OH Vitamin D Total PTH Intact Urine pH Urine WBC (Auto) Urine Creatinine Urine Total Protein Fluid Total Protein Vancomycin Trough Rheumatoid Factor Complement C4 Miscellaneous Test Crossmatch 09/23/16 09/23/16 09/24/16 21:19 23:43 05:16 WBC RBC Hgb Hct MCV MCH MCHC RDW Plt Count Lymph % (Auto) [place] % (Auto) Lymph # [place] # Baso # Seg Neutrophils % Seg Neuts % (Manual) Lymphocytes % (Manual) Monocytes % (Manual) Eosinophils % (Manual) Basophils % (Manual) Nucleated RBC % Seg Neutrophils # Seg Neutrophils # Man Lymphocytes # (Manual) Monocytes # (Manual) Eosinophils # (Manual) Basophils # (Manual) PT INR Fibrinogen dRVVT Confirm Interp Factor V Activity POC ABG pH POC ABG pCO2 17.3 L POC ABG pO2 112 H ABG pO2 ABG HCO3 ABG Base Excess ABG Hemoglobin Oxyhemoglobin Sodium Potassium Chloride Carbon Dioxide BUN Creatinine Glucose POC Glucose 143 H 164 H Lactic Acid Calcium Ionized Calcium Phosphorus Magnesium Direct Bilirubin AST ALT Alkaline Phosphatase Lactate Dehydrogenase Troponin T C-Reactive Protein Total Protein Albumin Prealbumin Triglycerides Cholesterol LDL Cholesterol Direct HDL Cholesterol 25-OH Vitamin D Total PTH Intact Urine pH Urine WBC (Auto) Urine Creatinine Urine Total Protein Fluid Total Protein Vancomycin Trough Rheumatoid Factor Complement C4 Miscellaneous Test Crossmatch 09/24/16 09/24/16 09/24/16 05:21 11:58 17:06 WBC RBC Hgb Hct MCV MCH MCHC RDW Plt Count Lymph % (Auto) [place] % (Auto) Lymph # [place] # Baso # Seg Neutrophils % Seg Neuts % (Manual) Lymphocytes % (Manual) Monocytes % (Manual) Eosinophils % (Manual) Basophils % (Manual) Nucleated RBC % Seg Neutrophils # Seg Neutrophils # Man Lymphocytes # (Manual) Monocytes # (Manual) Eosinophils # (Manual) Basophils # (Manual) PT INR Fibrinogen dRVVT Confirm Interp Factor V Activity POC ABG pH POC ABG pCO2 POC ABG pO2 ABG pO2 ABG HCO3 ABG Base Excess ABG Hemoglobin Oxyhemoglobin Sodium Potassium Chloride Carbon Dioxide 10 L BUN 103 H Creatinine 4.3 H Glucose 163 H POC Glucose 173 H 167 H Lactic Acid Calcium 6.5 L Ionized Calcium Phosphorus Magnesium Direct Bilirubin AST ALT Alkaline Phosphatase Lactate Dehydrogenase Troponin T C-Reactive Protein Total Protein Albumin Prealbumin Triglycerides Cholesterol LDL Cholesterol Direct HDL Cholesterol 25-OH Vitamin D Total PTH Intact Urine pH Urine WBC (Auto) Urine Creatinine Urine Total Protein Fluid Total Protein Vancomycin Trough Rheumatoid Factor Complement C4 Miscellaneous Test Crossmatch 09/24/16 09/24/16 09/24/16 20:15 21:02 23:48 WBC RBC Hgb Hct MCV MCH MCHC RDW Plt Count Lymph % (Auto) [place] % (Auto) Lymph # [place] # Baso # Seg Neutrophils % Seg Neuts % (Manual) Lymphocytes % (Manual) Monocytes % (Manual) Eosinophils % (Manual) Basophils % (Manual) Nucleated RBC % Seg Neutrophils # Seg Neutrophils # Man Lymphocytes # (Manual) Monocytes # (Manual) Eosinophils # (Manual) Basophils # (Manual) PT INR Fibrinogen dRVVT Confirm Interp Factor V Activity POC ABG pH 7.288 L POC ABG pCO2 30.2 L 21.5 L POC ABG pO2 32 L 39 L ABG pO2 ABG HCO3 ABG Base Excess ABG Hemoglobin Oxyhemoglobin Sodium Potassium Chloride Carbon Dioxide BUN Creatinine Glucose POC Glucose 109 H Lactic Acid Calcium Ionized Calcium Phosphorus Magnesium Direct Bilirubin AST ALT Alkaline Phosphatase Lactate Dehydrogenase Troponin T C-Reactive Protein Total Protein Albumin Prealbumin Triglycerides Cholesterol LDL Cholesterol Direct HDL Cholesterol 25-OH Vitamin D Total PTH Intact Urine pH Urine WBC (Auto) Urine Creatinine Urine Total Protein Fluid Total Protein Vancomycin Trough Rheumatoid Factor Complement C4 Miscellaneous Test Crossmatch 09/25/16 09/25/16 09/25/16 04:20 04:20 04:20 WBC RBC 2.58 L Hgb 7.0 L Hct 21.0 L MCV MCH 27 L MCHC RDW 23.8 H Plt Count Lymph % (Auto) [place] % (Auto) Lymph # [place] # Baso # Seg Neutrophils % Seg Neuts % (Manual) Lymphocytes % (Manual) 12.0 L Monocytes % (Manual) Eosinophils % (Manual) 7.0 H Basophils % (Manual) 2.0 H Nucleated RBC % Seg Neutrophils # Seg Neutrophils # Man Lymphocytes # (Manual) 0.9 L Monocytes # (Manual) Eosinophils # (Manual) 0.5 H Basophils # (Manual) PT INR Fibrinogen dRVVT Confirm Interp Factor V Activity POC ABG pH POC ABG pCO2 POC ABG pO2 ABG pO2 ABG HCO3 ABG Base Excess ABG Hemoglobin Oxyhemoglobin Sodium Potassium Chloride Carbon Dioxide 15 L BUN 72 H Creatinine 3.8 H Glucose POC Glucose Lactic Acid Calcium 6.0 L Ionized Calcium Phosphorus 4.60 H Magnesium 1.60 L Direct Bilirubin AST ALT Alkaline Phosphatase Lactate Dehydrogenase Troponin T C-Reactive Protein Total Protein Albumin Prealbumin Triglycerides Cholesterol LDL Cholesterol Direct HDL Cholesterol 25-OH Vitamin D Total PTH Intact Urine pH Urine WBC (Auto) Urine Creatinine Urine Total Protein Fluid Total Protein Vancomycin Trough Rheumatoid Factor Complement C4 Miscellaneous Test Crossmatch 09/25/16 09/25/16 09/25/16 04:57 08:02 10:30 WBC RBC Hgb Hct MCV MCH MCHC RDW Plt Count Lymph % (Auto) [place] % (Auto) Lymph # [place] # Baso # Seg Neutrophils % Seg Neuts % (Manual) Lymphocytes % (Manual) Monocytes % (Manual) Eosinophils % (Manual) Basophils % (Manual) Nucleated RBC % Seg Neutrophils # Seg Neutrophils # Man Lymphocytes # (Manual) Monocytes # (Manual) Eosinophils # (Manual) Basophils # (Manual) PT INR Fibrinogen dRVVT Confirm Interp Factor V Activity POC ABG pH POC ABG pCO2 24.7 L POC ABG pO2 152 H ABG pO2 ABG HCO3 ABG Base Excess ABG Hemoglobin Oxyhemoglobin Sodium Potassium Chloride Carbon Dioxide BUN Creatinine Glucose POC Glucose 113 H Lactic Acid Calcium Ionized Calcium Phosphorus Magnesium Direct Bilirubin AST ALT Alkaline Phosphatase Lactate Dehydrogenase Troponin T C-Reactive Protein Total Protein Albumin Prealbumin Triglycerides Cholesterol LDL Cholesterol Direct HDL Cholesterol 25-OH Vitamin D Total PTH Intact Urine pH Urine WBC (Auto) Urine Creatinine Urine Total Protein Fluid Total Protein Vancomycin Trough Rheumatoid Factor Complement C4 Miscellaneous Test Crossmatch See Detail 09/25/16 09/25/16 09/25/16 12:05 17:44 23:47 WBC RBC Hgb Hct MCV MCH MCHC RDW Plt Count Lymph % (Auto) [place] % (Auto) Lymph # [place] # Baso # Seg Neutrophils % Seg Neuts % (Manual) Lymphocytes % (Manual) Monocytes % (Manual) Eosinophils % (Manual) Basophils % (Manual) Nucleated RBC % Seg Neutrophils # Seg Neutrophils # Man Lymphocytes # (Manual) Monocytes # (Manual) Eosinophils # (Manual) Basophils # (Manual) PT INR Fibrinogen dRVVT Confirm Interp Factor V Activity POC ABG pH POC ABG pCO2 POC ABG pO2 ABG pO2 ABG HCO3 ABG Base Excess ABG Hemoglobin Oxyhemoglobin Sodium Potassium Chloride Carbon Dioxide BUN Creatinine Glucose POC Glucose 117 H 119 H 150 H Lactic Acid Calcium Ionized Calcium Phosphorus Magnesium Direct Bilirubin AST ALT Alkaline Phosphatase Lactate Dehydrogenase Troponin T C-Reactive Protein Total Protein Albumin Prealbumin Triglycerides Cholesterol LDL Cholesterol Direct HDL Cholesterol 25-OH Vitamin D Total PTH Intact Urine pH Urine WBC (Auto) Urine Creatinine Urine Total Protein Fluid Total Protein Vancomycin Trough Rheumatoid Factor Complement C4 Miscellaneous Test Crossmatch 09/26/16 09/26/16 09/26/16 04:25 04:25 04:25 WBC RBC 2.65 L Hgb 7.4 L Hct 21.6 L MCV MCH MCHC RDW 22.5 H Plt Count Lymph % (Auto) [place] % (Auto) Lymph # [place] # Baso # Seg Neutrophils % Seg Neuts % (Manual) Lymphocytes % (Manual) 6.0 L Monocytes % (Manual) Eosinophils % (Manual) 11.0 H Basophils % (Manual) Nucleated RBC % Seg Neutrophils # Seg Neutrophils # Man Lymphocytes # (Manual) 0.4 L Monocytes # (Manual) Eosinophils # (Manual) 0.6 H Basophils # (Manual) PT INR Fibrinogen dRVVT Confirm Interp Factor V Activity POC ABG pH POC ABG pCO2 POC ABG pO2 ABG pO2 ABG HCO3 ABG Base Excess ABG Hemoglobin Oxyhemoglobin Sodium Potassium Chloride 97.0 L Carbon Dioxide 19 L BUN 43 H Creatinine 2.6 H Glucose 130 H POC Glucose Lactic Acid 4.40 H* Calcium 6.7 L Ionized Calcium Phosphorus Magnesium Direct Bilirubin AST ALT Alkaline Phosphatase Lactate Dehydrogenase Troponin T C-Reactive Protein Total Protein Albumin Prealbumin Triglycerides Cholesterol LDL Cholesterol Direct HDL Cholesterol 25-OH Vitamin D Total PTH Intact Urine pH Urine WBC (Auto) Urine Creatinine Urine Total Protein Fluid Total Protein Vancomycin Trough Rheumatoid Factor Complement C4 Miscellaneous Test Crossmatch 09/26/16 09/26/16 09/26/16 05:20 11:44 12:12 WBC RBC Hgb Hct MCV MCH MCHC RDW Plt Count Lymph % (Auto) [place] % (Auto) Lymph # [place] # Baso # Seg Neutrophils % Seg Neuts % (Manual) Lymphocytes % (Manual) Monocytes % (Manual) Eosinophils % (Manual) Basophils % (Manual) Nucleated RBC % Seg Neutrophils # Seg Neutrophils # Man Lymphocytes # (Manual) Monocytes # (Manual) Eosinophils # (Manual) Basophils # (Manual) PT INR Fibrinogen dRVVT Confirm Interp Factor V Activity POC ABG pH POC ABG pCO2 27.0 L POC ABG pO2 69 L ABG pO2 ABG HCO3 ABG Base Excess ABG Hemoglobin Oxyhemoglobin Sodium Potassium Chloride Carbon Dioxide BUN Creatinine Glucose POC Glucose 121 H 128 H Lactic Acid Calcium Ionized Calcium Phosphorus Magnesium Direct Bilirubin AST ALT Alkaline Phosphatase Lactate Dehydrogenase Troponin T C-Reactive Protein Total Protein Albumin Prealbumin Triglycerides Cholesterol LDL Cholesterol Direct HDL Cholesterol 25-OH Vitamin D Total PTH Intact Urine pH Urine WBC (Auto) Urine Creatinine Urine Total Protein Fluid Total Protein Vancomycin Trough Rheumatoid Factor Complement C4 Miscellaneous Test Crossmatch 09/26/16 09/26/16 09/27/16 18:31 23:40 08:20 WBC RBC Hgb Hct MCV MCH MCHC RDW Plt Count Lymph % (Auto) [place] % (Auto) Lymph # [place] # Baso # Seg Neutrophils % Seg Neuts % (Manual) Lymphocytes % (Manual) Monocytes % (Manual) Eosinophils % (Manual) Basophils % (Manual) Nucleated RBC % Seg Neutrophils # Seg Neutrophils # Man Lymphocytes # (Manual) Monocytes # (Manual) Eosinophils # (Manual) Basophils # (Manual) PT INR Fibrinogen dRVVT Confirm Interp Factor V Activity POC ABG pH POC ABG pCO2 POC ABG pO2 ABG pO2 ABG HCO3 ABG Base Excess ABG Hemoglobin Oxyhemoglobin Sodium Potassium Chloride Carbon Dioxide BUN Creatinine Glucose POC Glucose 120 H 133 H Lactic Acid 4.10 H* Calcium Ionized Calcium Phosphorus Magnesium Direct Bilirubin AST ALT Alkaline Phosphatase Lactate Dehydrogenase Troponin T C-Reactive Protein Total Protein Albumin Prealbumin Triglycerides Cholesterol LDL Cholesterol Direct HDL Cholesterol 25-OH Vitamin D Total PTH Intact Urine pH Urine WBC (Auto) Urine Creatinine Urine Total Protein Fluid Total Protein Vancomycin Trough Rheumatoid Factor Complement C4 Miscellaneous Test Crossmatch 09/27/16 09/27/16 09/27/16 11:23 15:00 18:15 WBC RBC Hgb Hct MCV MCH MCHC RDW Plt Count Lymph % (Auto) [place] % (Auto) Lymph # [place] # Baso # Seg Neutrophils % Seg Neuts % (Manual) Lymphocytes % (Manual) Monocytes % (Manual) Eosinophils % (Manual) Basophils % (Manual) Nucleated RBC % Seg Neutrophils # Seg Neutrophils # Man Lymphocytes # (Manual) Monocytes # (Manual) Eosinophils # (Manual) Basophils # (Manual) PT INR Fibrinogen dRVVT Confirm Interp Factor V Activity POC ABG pH 7.459 H POC ABG pCO2 27.1 L POC ABG pO2 140 H ABG pO2 ABG HCO3 ABG Base Excess ABG Hemoglobin Oxyhemoglobin Sodium Potassium Chloride Carbon Dioxide BUN Creatinine Glucose POC Glucose 114 H 127 H Lactic Acid Calcium Ionized Calcium Phosphorus Magnesium Direct Bilirubin AST ALT Alkaline Phosphatase Lactate Dehydrogenase Troponin T C-Reactive Protein Total Protein Albumin Prealbumin Triglycerides Cholesterol LDL Cholesterol Direct HDL Cholesterol 25-OH Vitamin D Total PTH Intact Urine pH Urine WBC (Auto) Urine Creatinine Urine Total Protein Fluid Total Protein Vancomycin Trough Rheumatoid Factor Complement C4 Miscellaneous Test Crossmatch 09/27/16 09/27/16 09/28/16 Unknown Unknown 03:45 WBC RBC 2.49 L Hgb 6.8 L Hct 20.7 L MCV MCH 27 L MCHC RDW 22.1 H Plt Count Lymph % (Auto) [place] % (Auto) Lymph # [place] # Baso # Seg Neutrophils % Seg Neuts % (Manual) 32.0 L Lymphocytes % (Manual) 12.0 L Monocytes % (Manual) 11.0 H Eosinophils % (Manual) 10.0 H Basophils % (Manual) Nucleated RBC % Seg Neutrophils # Seg Neutrophils # Man Lymphocytes # (Manual) 1.0 L Monocytes # (Manual) 0.9 H Eosinophils # (Manual) 0.8 H Basophils # (Manual) PT INR Fibrinogen dRVVT Confirm Interp Factor V Activity POC ABG pH POC ABG pCO2 POC ABG pO2 ABG pO2 ABG HCO3 ABG Base Excess ABG Hemoglobin Oxyhemoglobin Sodium 135 L 135 L Potassium 3.5 L Chloride 93.6 L 94.4 L Carbon Dioxide 17 L 21 L BUN 45 H 28 H Creatinine 3.3 H 2.5 H Glucose 106 H POC Glucose Lactic Acid Calcium 7.3 L 7.1 L Ionized Calcium Phosphorus Magnesium Direct Bilirubin AST ALT Alkaline Phosphatase Lactate Dehydrogenase Troponin T C-Reactive Protein Total Protein Albumin Prealbumin Triglycerides Cholesterol LDL Cholesterol Direct HDL Cholesterol 25-OH Vitamin D Total PTH Intact Urine pH Urine WBC (Auto) Urine Creatinine Urine Total Protein Fluid Total Protein Vancomycin Trough Rheumatoid Factor Complement C4 Miscellaneous Test Crossmatch 09/28/16 09/28/16 09/28/16 03:45 07:25 11:58 WBC 13.3 H RBC 3.01 L Hgb 8.4 L Hct 25.0 L MCV MCH MCHC RDW 20.5 H Plt Count 128 L Lymph % (Auto) [place] % (Auto) Lymph # [place] # Baso # Seg Neutrophils % Seg Neuts % (Manual) Lymphocytes % (Manual) 7.0 L Monocytes % (Manual) Eosinophils % (Manual) 6.0 H Basophils % (Manual) Nucleated RBC % Seg Neutrophils # Seg Neutrophils # Man Lymphocytes # (Manual) 0.9 L Monocytes # (Manual) Eosinophils # (Manual) 0.8 H Basophils # (Manual) PT INR Fibrinogen dRVVT Confirm Interp Factor V Activity POC ABG pH POC ABG pCO2 POC ABG pO2 ABG pO2 ABG HCO3 ABG Base Excess ABG Hemoglobin Oxyhemoglobin Sodium Potassium Chloride Carbon Dioxide BUN Creatinine Glucose POC Glucose 121 H Lactic Acid 4.50 H* Calcium Ionized Calcium Phosphorus Magnesium Direct Bilirubin AST ALT Alkaline Phosphatase Lactate Dehydrogenase Troponin T C-Reactive Protein Total Protein Albumin Prealbumin Triglycerides Cholesterol LDL Cholesterol Direct HDL Cholesterol 25-OH Vitamin D Total PTH Intact Urine pH Urine WBC (Auto) Urine Creatinine Urine Total Protein Fluid Total Protein Vancomycin Trough Rheumatoid Factor Complement C4 Miscellaneous Test Crossmatch 09/29/16 09/29/16 09/29/16 06:45 06:45 06:45 WBC 14.9 H RBC 2.74 L Hgb 7.6 L Hct 23.2 L MCV MCH MCHC RDW 20.5 H Plt Count 81 L Lymph % (Auto) [place] % (Auto) Lymph # [place] # Baso # Seg Neutrophils % Seg Neuts % (Manual) 81.0 H Lymphocytes % (Manual) 4.0 L Monocytes % (Manual) Eosinophils % (Manual) Basophils % (Manual) Nucleated RBC % Seg Neutrophils # Seg Neutrophils # Man 12.1 H Lymphocytes # (Manual) 0.6 L Monocytes # (Manual) Eosinophils # (Manual) Basophils # (Manual) PT INR Fibrinogen dRVVT Confirm Interp Factor V Activity POC ABG pH POC ABG pCO2 POC ABG pO2 ABG pO2 ABG HCO3 ABG Base Excess ABG Hemoglobin Oxyhemoglobin Sodium 133 L Potassium 3.4 L Chloride 92.5 L Carbon Dioxide 21 L BUN 33 H Creatinine 3.0 H Glucose POC Glucose Lactic Acid Calcium 6.6 L Ionized Calcium Phosphorus Magnesium 1.40 L Direct Bilirubin 0.9 H AST ALT Alkaline Phosphatase Lactate Dehydrogenase Troponin T C-Reactive Protein Total Protein 4.3 L Albumin 1.3 L Prealbumin Triglycerides Cholesterol LDL Cholesterol Direct HDL Cholesterol 25-OH Vitamin D Total PTH Intact Urine pH Urine WBC (Auto) Urine Creatinine Urine Total Protein Fluid Total Protein Vancomycin Trough Rheumatoid Factor Complement C4 Miscellaneous Test Crossmatch 09/29/16 09/29/16 09/30/16 17:52 20:12 00:07 WBC RBC Hgb Hct MCV MCH MCHC RDW Plt Count Lymph % (Auto) [place] % (Auto) Lymph # [place] # Baso # Seg Neutrophils % Seg Neuts % (Manual) Lymphocytes % (Manual) Monocytes % (Manual) Eosinophils % (Manual) Basophils % (Manual) Nucleated RBC % Seg Neutrophils # Seg Neutrophils # Man Lymphocytes # (Manual) Monocytes # (Manual) Eosinophils # (Manual) Basophils # (Manual) PT INR Fibrinogen dRVVT Confirm Interp Factor V Activity POC ABG pH POC ABG pCO2 POC ABG pO2 ABG pO2 ABG HCO3 ABG Base Excess ABG Hemoglobin Oxyhemoglobin Sodium Potassium Chloride Carbon Dioxide BUN Creatinine Glucose POC Glucose 50 L 51 L Lactic Acid Calcium Ionized Calcium Phosphorus Magnesium Direct Bilirubin AST ALT Alkaline Phosphatase Lactate Dehydrogenase Troponin T 0.204 H* C-Reactive Protein Total Protein Albumin Prealbumin Triglycerides Cholesterol 31 L LDL Cholesterol Direct 4 L HDL Cholesterol 3 L 25-OH Vitamin D Total PTH Intact Urine pH Urine WBC (Auto) Urine Creatinine Urine Total Protein Fluid Total Protein Vancomycin Trough Rheumatoid Factor Complement C4 Miscellaneous Test Crossmatch 09/30/16 09/30/16 09/30/16 01:30 05:15 06:10 WBC RBC Hgb Hct MCV MCH MCHC RDW Plt Count Lymph % (Auto) [place] % (Auto) Lymph # [place] # Baso # Seg Neutrophils % Seg Neuts % (Manual) Lymphocytes % (Manual) Monocytes % (Manual) Eosinophils % (Manual) Basophils % (Manual) Nucleated RBC % Seg Neutrophils # Seg Neutrophils # Man Lymphocytes # (Manual) Monocytes # (Manual) Eosinophils # (Manual) Basophils # (Manual) PT INR Fibrinogen dRVVT Confirm Interp Factor V Activity POC ABG pH POC ABG pCO2 POC ABG pO2 ABG pO2 ABG HCO3 ABG Base Excess ABG Hemoglobin Oxyhemoglobin Sodium 133 L Potassium 3.2 L Chloride 93.2 L Carbon Dioxide 19 L BUN 36 H Creatinine 3.2 H Glucose 104 H POC Glucose 167 H 146 H Lactic Acid Calcium 6.4 L Ionized Calcium Phosphorus Magnesium 1.60 L Direct Bilirubin AST ALT Alkaline Phosphatase Lactate Dehydrogenase Troponin T C-Reactive Protein Total Protein Albumin Prealbumin Triglycerides Cholesterol LDL Cholesterol Direct HDL Cholesterol 25-OH Vitamin D Total PTH Intact Urine pH Urine WBC (Auto) Urine Creatinine Urine Total Protein Fluid Total Protein Vancomycin Trough Rheumatoid Factor Complement C4 Miscellaneous Test Crossmatch 09/30/16 09/30/16 09/30/16 11:26 13:39 18:38 WBC RBC Hgb Hct MCV MCH MCHC RDW Plt Count Lymph % (Auto) [place] % (Auto) Lymph # [place] # Baso # Seg Neutrophils % Seg Neuts % (Manual) Lymphocytes % (Manual) Monocytes % (Manual) Eosinophils % (Manual) Basophils % (Manual) Nucleated RBC % Seg Neutrophils # Seg Neutrophils # Man Lymphocytes # (Manual) Monocytes # (Manual) Eosinophils # (Manual) Basophils # (Manual) PT INR Fibrinogen dRVVT Confirm Interp Factor V Activity POC ABG pH 7.479 H POC ABG pCO2 29.8 L POC ABG pO2 117 H ABG pO2 ABG HCO3 ABG Base Excess ABG Hemoglobin Oxyhemoglobin Sodium Potassium Chloride Carbon Dioxide BUN Creatinine Glucose POC Glucose 140 H 122 H Lactic Acid Calcium Ionized Calcium Phosphorus Magnesium Direct Bilirubin AST ALT Alkaline Phosphatase Lactate Dehydrogenase Troponin T C-Reactive Protein Total Protein Albumin Prealbumin Triglycerides Cholesterol LDL Cholesterol Direct HDL Cholesterol 25-OH Vitamin D Total PTH Intact Urine pH Urine WBC (Auto) Urine Creatinine Urine Total Protein Fluid Total Protein Vancomycin Trough Rheumatoid Factor Complement C4 Miscellaneous Test Crossmatch 10/01/16 10/01/16 10/01/16 06:00 06:00 12:37 WBC 12.6 H RBC 2.75 L Hgb 7.3 L Hct 23.3 L MCV MCH 27 L MCHC RDW 20.6 H Plt Count 72 L Lymph % (Auto) [place] % (Auto) Lymph # [place] # Baso # Seg Neutrophils % Seg Neuts % (Manual) 31.0 L Lymphocytes % (Manual) 8.0 L Monocytes % (Manual) Eosinophils % (Manual) Basophils % (Manual) Nucleated RBC % 3.0 H Seg Neutrophils # Seg Neutrophils # Man Lymphocytes # (Manual) 1.0 L Monocytes # (Manual) Eosinophils # (Manual) Basophils # (Manual) PT INR Fibrinogen dRVVT Confirm Interp Factor V Activity POC ABG pH POC ABG pCO2 POC ABG pO2 ABG pO2 ABG HCO3 ABG Base Excess ABG Hemoglobin Oxyhemoglobin Sodium 127 L Potassium Chloride 86.8 L Carbon Dioxide 20 L BUN 42 H Creatinine 3.5 H Glucose POC Glucose 65 L Lactic Acid Calcium 7.0 L Ionized Calcium Phosphorus Magnesium Direct Bilirubin AST ALT Alkaline Phosphatase Lactate Dehydrogenase Troponin T C-Reactive Protein Total Protein Albumin Prealbumin Triglycerides Cholesterol LDL Cholesterol Direct HDL Cholesterol 25-OH Vitamin D Total PTH Intact Urine pH Urine WBC (Auto) Urine Creatinine Urine Total Protein Fluid Total Protein Vancomycin Trough Rheumatoid Factor Complement C4 Miscellaneous Test Crossmatch 10/01/16 10/01/16 10/02/16 17:39 23:32 00:59 WBC RBC Hgb Hct MCV MCH MCHC RDW Plt Count Lymph % (Auto) [place] % (Auto) Lymph # [place] # Baso # Seg Neutrophils % Seg Neuts % (Manual) Lymphocytes % (Manual) Monocytes % (Manual) Eosinophils % (Manual) Basophils % (Manual) Nucleated RBC % Seg Neutrophils # Seg Neutrophils # Man Lymphocytes # (Manual) Monocytes # (Manual) Eosinophils # (Manual) Basophils # (Manual) PT INR Fibrinogen dRVVT Confirm Interp Factor V Activity POC ABG pH POC ABG pCO2 POC ABG pO2 ABG pO2 ABG HCO3 ABG Base Excess ABG Hemoglobin Oxyhemoglobin Sodium Potassium Chloride Carbon Dioxide BUN Creatinine Glucose POC Glucose 107 H 52 L 145 H Lactic Acid Calcium Ionized Calcium Phosphorus Magnesium Direct Bilirubin AST ALT Alkaline Phosphatase Lactate Dehydrogenase Troponin T C-Reactive Protein Total Protein Albumin Prealbumin Triglycerides Cholesterol LDL Cholesterol Direct HDL Cholesterol 25-OH Vitamin D Total PTH Intact Urine pH Urine WBC (Auto) Urine Creatinine Urine Total Protein Fluid Total Protein Vancomycin Trough Rheumatoid Factor Complement C4 Miscellaneous Test Crossmatch 10/02/16 10/02/16 10/02/16 10:30 10:50 10:50 WBC 14.7 H RBC 2.76 L Hgb 7.4 L Hct 23.6 L MCV MCH 27 L MCHC RDW 20.2 H Plt Count 79 L Lymph % (Auto) [place] % (Auto) Lymph # [place] # Baso # Seg Neutrophils % Seg Neuts % (Manual) 86.0 H Lymphocytes % (Manual) 6.0 L Monocytes % (Manual) Eosinophils % (Manual) Basophils % (Manual) Nucleated RBC % Seg Neutrophils # Seg Neutrophils # Man 12.6 H Lymphocytes # (Manual) 0.9 L Monocytes # (Manual) Eosinophils # (Manual) Basophils # (Manual) PT INR Fibrinogen dRVVT Confirm Interp Factor V Activity POC ABG pH 7.486 H POC ABG pCO2 30.1 L POC ABG pO2 108 H ABG pO2 ABG HCO3 ABG Base Excess ABG Hemoglobin Oxyhemoglobin Sodium 131 L Potassium 3.4 L Chloride 89.9 L Carbon Dioxide BUN 26 H Creatinine 2.6 H Glucose POC Glucose Lactic Acid Calcium 7.0 L Ionized Calcium Phosphorus Magnesium Direct Bilirubin AST ALT Alkaline Phosphatase Lactate Dehydrogenase Troponin T C-Reactive Protein Total Protein Albumin Prealbumin Triglycerides Cholesterol LDL Cholesterol Direct HDL Cholesterol 25-OH Vitamin D Total PTH Intact Urine pH Urine WBC (Auto) Urine Creatinine Urine Total Protein Fluid Total Protein Vancomycin Trough Rheumatoid Factor Complement C4 Miscellaneous Test Crossmatch 10/02/16 10/03/16 10/03/16 23:45 00:45 05:10 WBC 12.9 H RBC 2.77 L Hgb 7.6 L Hct 23.7 L MCV MCH 27 L MCHC RDW 19.7 H Plt Count 89 L Lymph % (Auto) [place] % (Auto) Lymph # [place] # Baso # Seg Neutrophils % Seg Neuts % (Manual) Lymphocytes % (Manual) 8.0 L Monocytes % (Manual) Eosinophils % (Manual) Basophils % (Manual) Nucleated RBC % Seg Neutrophils # 11.9 H Seg Neutrophils # Man Lymphocytes # (Manual) 1.0 L Monocytes # (Manual) Eosinophils # (Manual) Basophils # (Manual) PT INR Fibrinogen dRVVT Confirm Interp Factor V Activity POC ABG pH POC ABG pCO2 POC ABG pO2 ABG pO2 ABG HCO3 ABG Base Excess ABG Hemoglobin Oxyhemoglobin Sodium Potassium Chloride Carbon Dioxide BUN Creatinine Glucose POC Glucose 55 L 199 H Lactic Acid Calcium Ionized Calcium Phosphorus Magnesium Direct Bilirubin AST ALT Alkaline Phosphatase Lactate Dehydrogenase Troponin T C-Reactive Protein Total Protein Albumin Prealbumin Triglycerides Cholesterol LDL Cholesterol Direct HDL Cholesterol 25-OH Vitamin D Total PTH Intact Urine pH Urine WBC (Auto) Urine Creatinine Urine Total Protein Fluid Total Protein Vancomycin Trough Rheumatoid Factor Complement C4 Miscellaneous Test Crossmatch 10/03/16 10/03/16 10/03/16 05:10 12:14 13:18 WBC RBC Hgb Hct MCV MCH MCHC RDW Plt Count Lymph % (Auto) [place] % (Auto) Lymph # [place] # Baso # Seg Neutrophils % Seg Neuts % (Manual) Lymphocytes % (Manual) Monocytes % (Manual) Eosinophils % (Manual) Basophils % (Manual) Nucleated RBC % Seg Neutrophils # Seg Neutrophils # Man Lymphocytes # (Manual) Monocytes # (Manual) Eosinophils # (Manual) Basophils # (Manual) PT INR Fibrinogen dRVVT Confirm Interp Factor V Activity POC ABG pH POC ABG pCO2 POC ABG pO2 ABG pO2 ABG HCO3 ABG Base Excess ABG Hemoglobin Oxyhemoglobin Sodium 129 L Potassium 3.3 L Chloride 88.8 L Carbon Dioxide 20 L BUN 29 H Creatinine 2.8 H Glucose POC Glucose 68 L 127 H Lactic Acid Calcium 7.2 L Ionized Calcium Phosphorus Magnesium Direct Bilirubin AST ALT Alkaline Phosphatase Lactate Dehydrogenase Troponin T C-Reactive Protein Total Protein Albumin Prealbumin Triglycerides Cholesterol LDL Cholesterol Direct HDL Cholesterol 25-OH Vitamin D Total PTH Intact Urine pH Urine WBC (Auto) Urine Creatinine Urine Total Protein Fluid Total Protein Vancomycin Trough Rheumatoid Factor Complement C4 Miscellaneous Test Crossmatch 10/03/16 10/03/16 10/03/16 14:42 18:21 19:09 WBC RBC Hgb Hct MCV MCH MCHC RDW Plt Count Lymph % (Auto) [place] % (Auto) Lymph # [place] # Baso # Seg Neutrophils % Seg Neuts % (Manual) Lymphocytes % (Manual) Monocytes % (Manual) Eosinophils % (Manual) Basophils % (Manual) Nucleated RBC % Seg Neutrophils # Seg Neutrophils # Man Lymphocytes # (Manual) Monocytes # (Manual) Eosinophils # (Manual) Basophils # (Manual) PT INR Fibrinogen dRVVT Confirm Interp Factor V Activity POC ABG pH 7.499 H POC ABG pCO2 28.4 L POC ABG pO2 44 L ABG pO2 ABG HCO3 ABG Base Excess ABG Hemoglobin Oxyhemoglobin Sodium Potassium Chloride Carbon Dioxide BUN Creatinine Glucose POC Glucose 64 L 205 H Lactic Acid Calcium Ionized Calcium Phosphorus Magnesium Direct Bilirubin AST ALT Alkaline Phosphatase Lactate Dehydrogenase Troponin T C-Reactive Protein Total Protein Albumin Prealbumin Triglycerides Cholesterol LDL Cholesterol Direct HDL Cholesterol 25-OH Vitamin D Total PTH Intact Urine pH Urine WBC (Auto) Urine Creatinine Urine Total Protein Fluid Total Protein Vancomycin Trough Rheumatoid Factor Complement C4 Miscellaneous Test Crossmatch 10/03/16 10/04/16 10/04/16 23:33 04:18 06:30 WBC RBC 2.54 L Hgb 7.1 L Hct 21.7 L MCV MCH MCHC RDW 19.5 H Plt Count 76 L Lymph % (Auto) [place] % (Auto) Lymph # [place] # Baso # Seg Neutrophils % Seg Neuts % (Manual) 88.0 H Lymphocytes % (Manual) 6.0 L Monocytes % (Manual) Eosinophils % (Manual) Basophils % (Manual) Nucleated RBC % Seg Neutrophils # Seg Neutrophils # Man 8.8 H Lymphocytes # (Manual) 0.6 L Monocytes # (Manual) Eosinophils # (Manual) Basophils # (Manual) PT INR Fibrinogen dRVVT Confirm Interp Factor V Activity POC ABG pH 7.461 H POC ABG pCO2 33.6 L POC ABG pO2 211 H ABG pO2 ABG HCO3 ABG Base Excess ABG Hemoglobin Oxyhemoglobin Sodium Potassium Chloride Carbon Dioxide BUN Creatinine Glucose POC Glucose 136 H Lactic Acid Calcium Ionized Calcium Phosphorus Magnesium Direct Bilirubin AST ALT Alkaline Phosphatase Lactate Dehydrogenase Troponin T C-Reactive Protein Total Protein Albumin Prealbumin Triglycerides Cholesterol LDL Cholesterol Direct HDL Cholesterol 25-OH Vitamin D Total PTH Intact Urine pH Urine WBC (Auto) Urine Creatinine Urine Total Protein Fluid Total Protein Vancomycin Trough Rheumatoid Factor Complement C4 Miscellaneous Test Crossmatch 10/04/16 10/04/16 10/04/16 06:30 11:45 17:54 WBC RBC Hgb Hct MCV MCH MCHC RDW Plt Count Lymph % (Auto) [place] % (Auto) Lymph # [place] # Baso # Seg Neutrophils % Seg Neuts % (Manual) Lymphocytes % (Manual) Monocytes % (Manual) Eosinophils % (Manual) Basophils % (Manual) Nucleated RBC % Seg Neutrophils # Seg Neutrophils # Man Lymphocytes # (Manual) Monocytes # (Manual) Eosinophils # (Manual) Basophils # (Manual) PT INR Fibrinogen dRVVT Confirm Interp Factor V Activity POC ABG pH POC ABG pCO2 POC ABG pO2 ABG pO2 ABG HCO3 ABG Base Excess ABG Hemoglobin Oxyhemoglobin Sodium 128 L Potassium Chloride 87.4 L Carbon Dioxide 20 L BUN 34 H Creatinine 2.9 H Glucose 127 H POC Glucose 158 H 160 H Lactic Acid Calcium 7.4 L Ionized Calcium Phosphorus Magnesium Direct Bilirubin AST ALT Alkaline Phosphatase Lactate Dehydrogenase Troponin T C-Reactive Protein Total Protein Albumin Prealbumin Triglycerides Cholesterol LDL Cholesterol Direct HDL Cholesterol 25-OH Vitamin D Total PTH Intact Urine pH Urine WBC (Auto) Urine Creatinine Urine Total Protein Fluid Total Protein Vancomycin Trough Rheumatoid Factor Complement C4 Miscellaneous Test Crossmatch 10/04/16 10/05/16 10/05/16 23:25 04:30 05:00 WBC RBC 2.64 L Hgb 7.5 L Hct 22.6 L MCV MCH MCHC RDW 19.3 H Plt Count 80 L Lymph % (Auto) [place] % (Auto) Lymph # [place] # Baso # Seg Neutrophils % Seg Neuts % (Manual) Lymphocytes % (Manual) 12.0 L Monocytes % (Manual) Eosinophils % (Manual) Basophils % (Manual) Nucleated RBC % Seg Neutrophils # Seg Neutrophils # Man Lymphocytes # (Manual) Monocytes # (Manual) Eosinophils # (Manual) Basophils # (Manual) PT INR Fibrinogen dRVVT Confirm Interp Factor V Activity POC ABG pH 7.475 H POC ABG pCO2 33.3 L POC ABG pO2 140 H ABG pO2 ABG HCO3 ABG Base Excess ABG Hemoglobin Oxyhemoglobin Sodium Potassium Chloride Carbon Dioxide BUN Creatinine Glucose POC Glucose 141 H Lactic Acid Calcium Ionized Calcium Phosphorus Magnesium Direct Bilirubin AST ALT Alkaline Phosphatase Lactate Dehydrogenase Troponin T C-Reactive Protein Total Protein Albumin Prealbumin Triglycerides Cholesterol LDL Cholesterol Direct HDL Cholesterol 25-OH Vitamin D Total PTH Intact Urine pH Urine WBC (Auto) Urine Creatinine Urine Total Protein Fluid Total Protein Vancomycin Trough Rheumatoid Factor Complement C4 Miscellaneous Test Crossmatch 10/05/16 10/05/16 10/05/16 05:00 05:09 12:58 WBC RBC Hgb Hct MCV MCH MCHC RDW Plt Count Lymph % (Auto) [place] % (Auto) Lymph # [place] # Baso # Seg Neutrophils % Seg Neuts % (Manual) Lymphocytes % (Manual) Monocytes % (Manual) Eosinophils % (Manual) Basophils % (Manual) Nucleated RBC % Seg Neutrophils # Seg Neutrophils # Man Lymphocytes # (Manual) Monocytes # (Manual) Eosinophils # (Manual) Basophils # (Manual) PT INR Fibrinogen dRVVT Confirm Interp Factor V Activity POC ABG pH POC ABG pCO2 POC ABG pO2 ABG pO2 ABG HCO3 ABG Base Excess ABG Hemoglobin Oxyhemoglobin Sodium 131 L Potassium Chloride 94.0 L Carbon Dioxide 20 L BUN 22 H Creatinine 2.0 H Glucose 123 H POC Glucose 166 H 179 H Lactic Acid Calcium 7.7 L Ionized Calcium Phosphorus 2.20 L D Magnesium Direct Bilirubin AST ALT Alkaline Phosphatase Lactate Dehydrogenase Troponin T C-Reactive Protein Total Protein Albumin Prealbumin Triglycerides Cholesterol LDL Cholesterol Direct HDL Cholesterol 25-OH Vitamin D Total PTH Intact Urine pH Urine WBC (Auto) Urine Creatinine Urine Total Protein Fluid Total Protein Vancomycin Trough Rheumatoid Factor Complement C4 Miscellaneous Test Crossmatch 10/05/16 10/05/16 10/05/16 15:50 18:53 23:12 WBC RBC Hgb Hct MCV MCH MCHC RDW Plt Count Lymph % (Auto) [place] % (Auto) Lymph # [place] # Baso # Seg Neutrophils % Seg Neuts % (Manual) Lymphocytes % (Manual) Monocytes % (Manual) Eosinophils % (Manual) Basophils % (Manual) Nucleated RBC % Seg Neutrophils # Seg Neutrophils # Man Lymphocytes # (Manual) Monocytes # (Manual) Eosinophils # (Manual) Basophils # (Manual) PT INR Fibrinogen dRVVT Confirm Interp Factor V Activity POC ABG pH POC ABG pCO2 POC ABG pO2 ABG pO2 ABG HCO3 ABG Base Excess ABG Hemoglobin Oxyhemoglobin Sodium Potassium Chloride Carbon Dioxide BUN Creatinine Glucose POC Glucose 150 H 164 H Lactic Acid Calcium Ionized Calcium Phosphorus Magnesium Direct Bilirubin AST ALT Alkaline Phosphatase Lactate Dehydrogenase Troponin T C-Reactive Protein Total Protein Albumin Prealbumin Triglycerides Cholesterol LDL Cholesterol Direct HDL Cholesterol 25-OH Vitamin D Total PTH Intact Urine pH Urine WBC (Auto) Urine Creatinine Urine Total Protein Fluid Total Protein Vancomycin Trough Rheumatoid Factor Complement C4 Miscellaneous Test Crossmatch See Detail 10/06/16 10/06/16 10/06/16 03:50 03:50 04:53 WBC RBC 3.00 L Hgb 8.6 L Hct 25.8 L MCV MCH MCHC RDW 17.9 H Plt Count 65 L Lymph % (Auto) [place] % (Auto) Lymph # [place] # Baso # Seg Neutrophils % Seg Neuts % (Manual) 30.0 L Lymphocytes % (Manual) 5.0 L Monocytes % (Manual) Eosinophils % (Manual) Basophils % (Manual) Nucleated RBC % Seg Neutrophils # Seg Neutrophils # Man Lymphocytes # (Manual) 0.4 L Monocytes # (Manual) Eosinophils # (Manual) Basophils # (Manual) PT INR Fibrinogen dRVVT Confirm Interp Factor V Activity POC ABG pH 7.310 L POC ABG pCO2 49.0 H POC ABG pO2 ABG pO2 ABG HCO3 ABG Base Excess ABG Hemoglobin Oxyhemoglobin Sodium 133 L Potassium Chloride 95.9 L Carbon Dioxide BUN 26 H Creatinine 2.0 H Glucose 116 H POC Glucose Lactic Acid Calcium 7.8 L Ionized Calcium Phosphorus Magnesium Direct Bilirubin AST ALT Alkaline Phosphatase Lactate Dehydrogenase Troponin T C-Reactive Protein Total Protein Albumin Prealbumin Triglycerides Cholesterol LDL Cholesterol Direct HDL Cholesterol 25-OH Vitamin D Total PTH Intact Urine pH Urine WBC (Auto) Urine Creatinine Urine Total Protein Fluid Total Protein Vancomycin Trough Rheumatoid Factor Complement C4 Miscellaneous Test Crossmatch 10/06/16 10/06/16 10/06/16 05:23 11:52 18:34 WBC RBC Hgb Hct MCV MCH MCHC RDW Plt Count Lymph % (Auto) [place] % (Auto) Lymph # [place] # Baso # Seg Neutrophils % Seg Neuts % (Manual) Lymphocytes % (Manual) Monocytes % (Manual) Eosinophils % (Manual) Basophils % (Manual) Nucleated RBC % Seg Neutrophils # Seg Neutrophils # Man Lymphocytes # (Manual) Monocytes # (Manual) Eosinophils # (Manual) Basophils # (Manual) PT INR Fibrinogen dRVVT Confirm Interp Factor V Activity POC ABG pH POC ABG pCO2 POC ABG pO2 ABG pO2 ABG HCO3 ABG Base Excess ABG Hemoglobin Oxyhemoglobin Sodium Potassium Chloride Carbon Dioxide BUN Creatinine Glucose POC Glucose 126 H 116 H 129 H Lactic Acid Calcium Ionized Calcium Phosphorus Magnesium Direct Bilirubin AST ALT Alkaline Phosphatase Lactate Dehydrogenase Troponin T C-Reactive Protein Total Protein Albumin Prealbumin Triglycerides Cholesterol LDL Cholesterol Direct HDL Cholesterol 25-OH Vitamin D Total PTH Intact Urine pH Urine WBC (Auto) Urine Creatinine Urine Total Protein Fluid Total Protein Vancomycin Trough Rheumatoid Factor Complement C4 Miscellaneous Test Crossmatch 10/07/16 10/07/16 10/07/16 03:45 05:00 10:00 WBC 17.0 H RBC 2.68 L Hgb 7.3 L Hct 25.3 L MCV MCH 27 L MCHC 29 L RDW 19.6 H Plt Count 74 L Lymph % (Auto) [place] % (Auto) Lymph # [place] # Baso # Seg Neutrophils % Seg Neuts % (Manual) Lymphocytes % (Manual) 12.0 L Monocytes % (Manual) Eosinophils % (Manual) Basophils % (Manual) Nucleated RBC % 4.0 H Seg Neutrophils # Seg Neutrophils # Man 10.7 H Lymphocytes # (Manual) Monocytes # (Manual) Eosinophils # (Manual) Basophils # (Manual) PT INR Fibrinogen dRVVT Confirm Interp Factor V Activity POC ABG pH POC ABG pCO2 POC ABG pO2 ABG pO2 ABG HCO3 ABG Base Excess ABG Hemoglobin Oxyhemoglobin Sodium 130 L Potassium 3.2 L Chloride 93.9 L Carbon Dioxide 20 L BUN 44 H Creatinine 2.7 H Glucose 129 H POC Glucose Lactic Acid Calcium 7.4 L Ionized Calcium Phosphorus Magnesium Direct Bilirubin AST ALT 6 L Alkaline Phosphatase 195 H Lactate Dehydrogenase Troponin T C-Reactive Protein Total Protein 4.9 L Albumin 1.0 L Prealbumin Triglycerides Cholesterol LDL Cholesterol Direct HDL Cholesterol 25-OH Vitamin D Total PTH Intact Urine pH Urine WBC (Auto) Urine Creatinine Urine Total Protein Fluid Total Protein Vancomycin Trough Rheumatoid Factor Complement C4 Miscellaneous Test Flexitest 1 H Crossmatch 10/07/16 10/07/16 10/07/16 10:00 11:24 18:10 WBC RBC Hgb Hct MCV MCH MCHC RDW Plt Count Lymph % (Auto) [place] % (Auto) Lymph # [place] # Baso # Seg Neutrophils % Seg Neuts % (Manual) Lymphocytes % (Manual) Monocytes % (Manual) Eosinophils % (Manual) Basophils % (Manual) Nucleated RBC % Seg Neutrophils # Seg Neutrophils # Man Lymphocytes # (Manual) Monocytes # (Manual) Eosinophils # (Manual) Basophils # (Manual) PT INR Fibrinogen dRVVT Confirm Interp Factor V Activity POC ABG pH POC ABG pCO2 POC ABG pO2 ABG pO2 ABG HCO3 ABG Base Excess ABG Hemoglobin Oxyhemoglobin Sodium Potassium Chloride Carbon Dioxide BUN Creatinine Glucose POC Glucose 116 H 130 H Lactic Acid Calcium Ionized Calcium Phosphorus Magnesium Direct Bilirubin AST ALT Alkaline Phosphatase Lactate Dehydrogenase Troponin T C-Reactive Protein 19.40 H Total Protein Albumin Prealbumin Triglycerides Cholesterol LDL Cholesterol Direct HDL Cholesterol 25-OH Vitamin D Total PTH Intact Urine pH Urine WBC (Auto) Urine Creatinine Urine Total Protein Fluid Total Protein Vancomycin Trough Rheumatoid Factor Complement C4 Miscellaneous Test Crossmatch 10/07/16 10/08/16 10/08/16 18:30 00:00 04:00 WBC RBC Hgb Hct MCV MCH MCHC RDW Plt Count Lymph % (Auto) [place] % (Auto) Lymph # [place] # Baso # Seg Neutrophils % Seg Neuts % (Manual) Lymphocytes % (Manual) Monocytes % (Manual) Eosinophils % (Manual) Basophils % (Manual) Nucleated RBC % Seg Neutrophils # Seg Neutrophils # Man Lymphocytes # (Manual) Monocytes # (Manual) Eosinophils # (Manual) Basophils # (Manual) PT INR Fibrinogen dRVVT Confirm Interp Factor V Activity POC ABG pH POC ABG pCO2 POC ABG pO2 ABG pO2 ABG HCO3 ABG Base Excess ABG Hemoglobin Oxyhemoglobin Sodium 132 L Potassium 3.3 L Chloride 93.6 L Carbon Dioxide 17 L BUN 59 H Creatinine 2.7 H Glucose 121 H POC Glucose 122 H Lactic Acid Calcium 7.6 L Ionized Calcium Phosphorus Magnesium Direct Bilirubin AST ALT Alkaline Phosphatase Lactate Dehydrogenase Troponin T C-Reactive Protein Total Protein Albumin Prealbumin Triglycerides Cholesterol LDL Cholesterol Direct HDL Cholesterol 25-OH Vitamin D Total PTH Intact Urine pH Urine WBC (Auto) > 182.0 H Urine Creatinine Urine Total Protein Fluid Total Protein Vancomycin Trough Rheumatoid Factor Complement C4 Miscellaneous Test Crossmatch 10/08/16 10/08/16 10/08/16 04:30 05:30 11:51 WBC RBC 5.15 H Hgb 14.4 H D Hct 44.5 H D MCV MCH MCHC RDW 19.5 H Plt Count 56 L Lymph % (Auto) [place] % (Auto) Lymph # [place] # Baso # Seg Neutrophils % Seg Neuts % (Manual) 24.0 L Lymphocytes % (Manual) 8.0 L Monocytes % (Manual) Eosinophils % (Manual) Basophils % (Manual) Nucleated RBC % 9.0 H Seg Neutrophils # Seg Neutrophils # Man Lymphocytes # (Manual) 0.7 L Monocytes # (Manual) Eosinophils # (Manual) Basophils # (Manual) PT INR Fibrinogen dRVVT Confirm Interp Factor V Activity POC ABG pH POC ABG pCO2 POC ABG pO2 ABG pO2 ABG HCO3 ABG Base Excess ABG Hemoglobin Oxyhemoglobin Sodium Potassium Chloride Carbon Dioxide BUN Creatinine Glucose POC Glucose 125 H 150 H Lactic Acid Calcium Ionized Calcium Phosphorus Magnesium Direct Bilirubin AST ALT Alkaline Phosphatase Lactate Dehydrogenase Troponin T C-Reactive Protein Total Protein Albumin Prealbumin Triglycerides Cholesterol LDL Cholesterol Direct HDL Cholesterol 25-OH Vitamin D Total PTH Intact Urine pH Urine WBC (Auto) Urine Creatinine Urine Total Protein Fluid Total Protein Vancomycin Trough Rheumatoid Factor Complement C4 Miscellaneous Test Crossmatch 10/08/16 10/08/16 10/08/16 12:49 17:07 19:30 WBC RBC Hgb 7.1 L D Hct 22.4 L D MCV MCH MCHC RDW Plt Count Lymph % (Auto) [place] % (Auto) Lymph # [place] # Baso # Seg Neutrophils % Seg Neuts % (Manual) Lymphocytes % (Manual) Monocytes % (Manual) Eosinophils % (Manual) Basophils % (Manual) Nucleated RBC % Seg Neutrophils # Seg Neutrophils # Man Lymphocytes # (Manual) Monocytes # (Manual) Eosinophils # (Manual) Basophils # (Manual) PT INR Fibrinogen dRVVT Confirm Interp Factor V Activity POC ABG pH POC ABG pCO2 28.2 L POC ABG pO2 111 H ABG pO2 ABG HCO3 ABG Base Excess ABG Hemoglobin Oxyhemoglobin Sodium Potassium Chloride Carbon Dioxide BUN Creatinine Glucose POC Glucose 145 H Lactic Acid Calcium Ionized Calcium Phosphorus Magnesium Direct Bilirubin AST ALT Alkaline Phosphatase Lactate Dehydrogenase Troponin T C-Reactive Protein Total Protein Albumin Prealbumin Triglycerides Cholesterol LDL Cholesterol Direct HDL Cholesterol 25-OH Vitamin D Total PTH Intact Urine pH Urine WBC (Auto) Urine Creatinine Urine Total Protein Fluid Total Protein Vancomycin Trough Rheumatoid Factor Complement C4 Miscellaneous Test Crossmatch 10/08/16 10/09/16 10/09/16 19:30 03:45 03:45 WBC 12.6 H RBC 2.36 L Hgb 6.7 L Hct 21.1 L MCV MCH MCHC RDW 19.5 H Plt Count 75 L Lymph % (Auto) [place] % (Auto) Lymph # [place] # Baso # Seg Neutrophils % Seg Neuts % (Manual) Lymphocytes % (Manual) Monocytes % (Manual) 10.0 H Eosinophils % (Manual) Basophils % (Manual) Nucleated RBC % 3.0 H Seg Neutrophils # Seg Neutrophils # Man Lymphocytes # (Manual) Monocytes # (Manual) 1.3 H Eosinophils # (Manual) Basophils # (Manual) PT 18.0 H INR 1.41 H Fibrinogen dRVVT Confirm Interp Factor V Activity POC ABG pH POC ABG pCO2 POC ABG pO2 ABG pO2 ABG HCO3 ABG Base Excess ABG Hemoglobin Oxyhemoglobin Sodium 135 L Potassium Chloride Carbon Dioxide 17 L BUN 81 H Creatinine 3.2 H Glucose 109 H POC Glucose Lactic Acid Calcium 7.4 L Ionized Calcium Phosphorus 4.60 H D Magnesium Direct Bilirubin AST ALT Alkaline Phosphatase Lactate Dehydrogenase Troponin T C-Reactive Protein Total Protein Albumin Prealbumin Triglycerides Cholesterol LDL Cholesterol Direct HDL Cholesterol 25-OH Vitamin D Total PTH Intact Urine pH Urine WBC (Auto) Urine Creatinine Urine Total Protein Fluid Total Protein Vancomycin Trough Rheumatoid Factor Complement C4 Miscellaneous Test Crossmatch 10/09/16 10/09/16 10/09/16 03:45 05:14 07:20 WBC RBC Hgb Hct MCV MCH MCHC RDW Plt Count Lymph % (Auto) [place] % (Auto) Lymph # [place] # Baso # Seg Neutrophils % Seg Neuts % (Manual) Lymphocytes % (Manual) Monocytes % (Manual) Eosinophils % (Manual) Basophils % (Manual) Nucleated RBC % Seg Neutrophils # Seg Neutrophils # Man Lymphocytes # (Manual) Monocytes # (Manual) Eosinophils # (Manual) Basophils # (Manual) PT 19.0 H INR 1.51 H Fibrinogen dRVVT Confirm Interp Factor V Activity POC ABG pH POC ABG pCO2 POC ABG pO2 ABG pO2 ABG HCO3 ABG Base Excess ABG Hemoglobin Oxyhemoglobin Sodium Potassium Chloride Carbon Dioxide BUN Creatinine Glucose POC Glucose 151 H Lactic Acid Calcium Ionized Calcium Phosphorus Magnesium Direct Bilirubin AST ALT Alkaline Phosphatase Lactate Dehydrogenase Troponin T C-Reactive Protein Total Protein Albumin Prealbumin Triglycerides Cholesterol LDL Cholesterol Direct HDL Cholesterol 25-OH Vitamin D Total PTH Intact Urine pH Urine WBC (Auto) Urine Creatinine Urine Total Protein Fluid Total Protein Vancomycin Trough Rheumatoid Factor Complement C4 Miscellaneous Test Crossmatch See Detail 10/09/16 10/09/16 10/09/16 11:46 16:20 16:43 WBC RBC Hgb 7.2 L Hct 22.2 L MCV MCH MCHC RDW Plt Count Lymph % (Auto) [place] % (Auto) Lymph # [place] # Baso # Seg Neutrophils % Seg Neuts % (Manual) Lymphocytes % (Manual) Monocytes % (Manual) Eosinophils % (Manual) Basophils % (Manual) Nucleated RBC % Seg Neutrophils # Seg Neutrophils # Man Lymphocytes # (Manual) Monocytes # (Manual) Eosinophils # (Manual) Basophils # (Manual) PT INR Fibrinogen dRVVT Confirm Interp Factor V Activity POC ABG pH POC ABG pCO2 POC ABG pO2 ABG pO2 ABG HCO3 ABG Base Excess ABG Hemoglobin Oxyhemoglobin Sodium Potassium Chloride Carbon Dioxide BUN Creatinine Glucose POC Glucose 133 H 141 H Lactic Acid Calcium Ionized Calcium Phosphorus Magnesium Direct Bilirubin AST ALT Alkaline Phosphatase Lactate Dehydrogenase Troponin T C-Reactive Protein Total Protein Albumin Prealbumin Triglycerides Cholesterol LDL Cholesterol Direct HDL Cholesterol 25-OH Vitamin D Total PTH Intact Urine pH Urine WBC (Auto) Urine Creatinine Urine Total Protein Fluid Total Protein Vancomycin Trough Rheumatoid Factor Complement C4 Miscellaneous Test Crossmatch 10/10/16 10/10/16 10/10/16 05:00 05:00 11:19 WBC 18.5 H RBC 2.19 L Hgb 6.4 L Hct 19.6 L* MCV MCH MCHC RDW 19.3 H Plt Count 93 L Lymph % (Auto) [place] % (Auto) Lymph # [place] # Baso # Seg Neutrophils % Seg Neuts % (Manual) Lymphocytes % (Manual) 10.0 L Monocytes % (Manual) Eosinophils % (Manual) Basophils % (Manual) Nucleated RBC % 4.0 H Seg Neutrophils # Seg Neutrophils # Man 11.3 H Lymphocytes # (Manual) Monocytes # (Manual) Eosinophils # (Manual) Basophils # (Manual) PT INR Fibrinogen dRVVT Confirm Interp Factor V Activity POC ABG pH POC ABG pCO2 POC ABG pO2 ABG pO2 ABG HCO3 ABG Base Excess ABG Hemoglobin Oxyhemoglobin Sodium Potassium 5.7 H D Chloride Carbon Dioxide 16 L BUN 94 H Creatinine 3.1 H Glucose 131 H POC Glucose 153 H Lactic Acid Calcium 8.2 L Ionized Calcium Phosphorus 5.10 H Magnesium 2.40 H Direct Bilirubin 0.3 H AST ALT < 5 L Alkaline Phosphatase 319 H Lactate Dehydrogenase Troponin T C-Reactive Protein Total Protein 5.1 L Albumin 1.0 L Prealbumin Triglycerides Cholesterol LDL Cholesterol Direct HDL Cholesterol 25-OH Vitamin D Total PTH Intact Urine pH Urine WBC (Auto) Urine Creatinine Urine Total Protein Fluid Total Protein Vancomycin Trough Rheumatoid Factor Complement C4 Miscellaneous Test Crossmatch 10/10/16 10/10/16 10/11/16 17:50 23:30 04:15 WBC RBC Hgb Hct MCV MCH MCHC RDW Plt Count Lymph % (Auto) [place] % (Auto) Lymph # [place] # Baso # Seg Neutrophils % Seg Neuts % (Manual) Lymphocytes % (Manual) Monocytes % (Manual) Eosinophils % (Manual) Basophils % (Manual) Nucleated RBC % Seg Neutrophils # Seg Neutrophils # Man Lymphocytes # (Manual) Monocytes # (Manual) Eosinophils # (Manual) Basophils # (Manual) PT INR Fibrinogen dRVVT Confirm Interp Factor V Activity POC ABG pH POC ABG pCO2 POC ABG pO2 ABG pO2 ABG HCO3 ABG Base Excess ABG Hemoglobin Oxyhemoglobin Sodium Potassium Chloride 96.4 L Carbon Dioxide 21 L BUN 57 H Creatinine 2.1 H Glucose 151 H POC Glucose 146 H 141 H Lactic Acid Calcium 8.3 L Ionized Calcium Phosphorus Magnesium Direct Bilirubin AST ALT Alkaline Phosphatase Lactate Dehydrogenase Troponin T C-Reactive Protein Total Protein Albumin Prealbumin Triglycerides Cholesterol LDL Cholesterol Direct HDL Cholesterol 25-OH Vitamin D Total PTH Intact Urine pH Urine WBC (Auto) Urine Creatinine Urine Total Protein Fluid Total Protein Vancomycin Trough Rheumatoid Factor Complement C4 Miscellaneous Test Crossmatch 10/11/16 10/11/16 10/11/16 04:15 04:15 05:30 WBC 28.3 H RBC 3.12 L Hgb 9.3 L Hct 28.7 L D MCV MCH MCHC RDW 17.7 H Plt Count 128 L Lymph % (Auto) [place] % (Auto) Lymph # [place] # Baso # Seg Neutrophils % Seg Neuts % (Manual) Lymphocytes % (Manual) Monocytes % (Manual) Eosinophils % (Manual) Basophils % (Manual) Nucleated RBC % Seg Neutrophils # Seg Neutrophils # Man Lymphocytes # (Manual) Monocytes # (Manual) Eosinophils # (Manual) Basophils # (Manual) PT INR Fibrinogen dRVVT Confirm Interp Factor V Activity POC ABG pH POC ABG pCO2 POC ABG pO2 ABG pO2 ABG HCO3 ABG Base Excess ABG Hemoglobin Oxyhemoglobin Sodium Potassium Chloride Carbon Dioxide BUN Creatinine Glucose POC Glucose 167 H Lactic Acid Calcium Ionized Calcium Phosphorus Magnesium Direct Bilirubin AST ALT Alkaline Phosphatase Lactate Dehydrogenase Troponin T C-Reactive Protein 15.80 H Total Protein Albumin Prealbumin Triglycerides Cholesterol LDL Cholesterol Direct HDL Cholesterol 25-OH Vitamin D Total PTH Intact Urine pH Urine WBC (Auto) Urine Creatinine Urine Total Protein Fluid Total Protein Vancomycin Trough Rheumatoid Factor Complement C4 Miscellaneous Test Crossmatch 10/11/16 10/11/16 10/11/16 11:40 15:49 23:57 WBC RBC Hgb Hct MCV MCH MCHC RDW Plt Count Lymph % (Auto) [place] % (Auto) Lymph # [place] # Baso # Seg Neutrophils % Seg Neuts % (Manual) Lymphocytes % (Manual) Monocytes % (Manual) Eosinophils % (Manual) Basophils % (Manual) Nucleated RBC % Seg Neutrophils # Seg Neutrophils # Man Lymphocytes # (Manual) Monocytes # (Manual) Eosinophils # (Manual) Basophils # (Manual) PT INR Fibrinogen dRVVT Confirm Interp Factor V Activity POC ABG pH POC ABG pCO2 POC ABG pO2 ABG pO2 ABG HCO3 ABG Base Excess ABG Hemoglobin Oxyhemoglobin Sodium Potassium Chloride Carbon Dioxide BUN Creatinine Glucose POC Glucose 139 H 168 H 161 H Lactic Acid Calcium Ionized Calcium Phosphorus Magnesium Direct Bilirubin AST ALT Alkaline Phosphatase Lactate Dehydrogenase Troponin T C-Reactive Protein Total Protein Albumin Prealbumin Triglycerides Cholesterol LDL Cholesterol Direct HDL Cholesterol 25-OH Vitamin D Total PTH Intact Urine pH Urine WBC (Auto) Urine Creatinine Urine Total Protein Fluid Total Protein Vancomycin Trough Rheumatoid Factor Complement C4 Miscellaneous Test Crossmatch 10/12/16 10/12/16 10/12/16 04:40 04:40 05:44 WBC 22.5 H RBC 2.88 L Hgb 8.8 L Hct 26.8 L MCV MCH MCHC RDW 17.8 H Plt Count Lymph % (Auto) [place] % (Auto) Lymph # [place] # Baso # Seg Neutrophils % Seg Neuts % (Manual) Lymphocytes % (Manual) Monocytes % (Manual) Eosinophils % (Manual) Basophils % (Manual) Nucleated RBC % Seg Neutrophils # Seg Neutrophils # Man Lymphocytes # (Manual) Monocytes # (Manual) Eosinophils # (Manual) Basophils # (Manual) PT INR Fibrinogen dRVVT Confirm Interp Factor V Activity POC ABG pH POC ABG pCO2 POC ABG pO2 ABG pO2 ABG HCO3 ABG Base Excess ABG Hemoglobin Oxyhemoglobin Sodium 134 L Potassium Chloride 93.0 L Carbon Dioxide BUN 74 H Creatinine 2.5 H Glucose 137 H POC Glucose 158 H Lactic Acid Calcium 8.2 L Ionized Calcium Phosphorus Magnesium Direct Bilirubin AST ALT Alkaline Phosphatase Lactate Dehydrogenase Troponin T C-Reactive Protein Total Protein Albumin Prealbumin Triglycerides Cholesterol LDL Cholesterol Direct HDL Cholesterol 25-OH Vitamin D Total PTH Intact Urine pH Urine WBC (Auto) Urine Creatinine Urine Total Protein Fluid Total Protein Vancomycin Trough Rheumatoid Factor Complement C4 Miscellaneous Test Crossmatch 10/12/16 10/12/16 10/12/16 12:27 18:18 23:46 WBC RBC Hgb Hct MCV MCH MCHC RDW Plt Count Lymph % (Auto) [place] % (Auto) Lymph # [place] # Baso # Seg Neutrophils % Seg Neuts % (Manual) Lymphocytes % (Manual) Monocytes % (Manual) Eosinophils % (Manual) Basophils % (Manual) Nucleated RBC % Seg Neutrophils # Seg Neutrophils # Man Lymphocytes # (Manual) Monocytes # (Manual) Eosinophils # (Manual) Basophils # (Manual) PT INR Fibrinogen dRVVT Confirm Interp Factor V Activity POC ABG pH POC ABG pCO2 POC ABG pO2 ABG pO2 ABG HCO3 ABG Base Excess ABG Hemoglobin Oxyhemoglobin Sodium Potassium Chloride Carbon Dioxide BUN Creatinine Glucose POC Glucose 153 H 140 H 150 H Lactic Acid Calcium Ionized Calcium Phosphorus Magnesium Direct Bilirubin AST ALT Alkaline Phosphatase Lactate Dehydrogenase Troponin T C-Reactive Protein Total Protein Albumin Prealbumin Triglycerides Cholesterol LDL Cholesterol Direct HDL Cholesterol 25-OH Vitamin D Total PTH Intact Urine pH Urine WBC (Auto) Urine Creatinine Urine Total Protein Fluid Total Protein Vancomycin Trough Rheumatoid Factor Complement C4 Miscellaneous Test Crossmatch 10/13/16 10/13/1610/13/17 06:22 09:20 12:29 WBC RBC Hgb Hct MCV MCH MCHC RDW Plt Count Lymph % (Auto) [place] % (Auto) Lymph # [place] # Baso # Seg Neutrophils % Seg Neuts % (Manual) Lymphocytes % (Manual) Monocytes % (Manual) Eosinophils % (Manual) Basophils % (Manual) Nucleated RBC % Seg Neutrophils # Seg Neutrophils # Man Lymphocytes # (Manual) Monocytes # (Manual) Eosinophils # (Manual) Basophils # (Manual) PT INR Fibrinogen dRVVT Confirm Interp Factor V Activity POC ABG pH POC ABG pCO2 POC ABG pO2 ABG pO2 ABG HCO3 ABG Base Excess ABG Hemoglobin Oxyhemoglobin Sodium Potassium Chloride Carbon Dioxide BUN Creatinine Glucose POC Glucose 165 H 193 H Lactic Acid Calcium Ionized Calcium Phosphorus Magnesium Direct Bilirubin AST ALT Alkaline Phosphatase Lactate Dehydrogenase Troponin T C-Reactive Protein Total Protein Albumin Prealbumin Triglycerides Cholesterol LDL Cholesterol Direct HDL Cholesterol 25-OH Vitamin D Total PTH Intact Urine pH Urine WBC (Auto) Urine Creatinine Urine Total Protein Fluid Total Protein Vancomycin Trough Rheumatoid Factor Complement C4 Miscellaneous Test Flexitest 1 H Crossmatch 10/13/16 10/13/16 10/13/16 18:09 Unknown Unknown WBC 23.4 H RBC 2.83 L Hgb 8.7 L Hct 26.1 L MCV MCH MCHC RDW 18.1 H Plt Count Lymph % (Auto) [place] % (Auto) Lymph # [place] # Baso # Seg Neutrophils % Seg Neuts % (Manual) Lymphocytes % (Manual) Monocytes % (Manual) Eosinophils % (Manual) Basophils % (Manual) Nucleated RBC % Seg Neutrophils # Seg Neutrophils # Man Lymphocytes # (Manual) Monocytes # (Manual) Eosinophils # (Manual) Basophils # (Manual) PT INR Fibrinogen dRVVT Confirm Interp Factor V Activity POC ABG pH POC ABG pCO2 POC ABG pO2 ABG pO2 ABG HCO3 ABG Base Excess ABG Hemoglobin Oxyhemoglobin Sodium Potassium Chloride 95.8 L Carbon Dioxide BUN 82 H Creatinine 2.6 H Glucose 152 H POC Glucose 166 H Lactic Acid Calcium Ionized Calcium Phosphorus Magnesium Direct Bilirubin AST ALT Alkaline Phosphatase Lactate Dehydrogenase Troponin T C-Reactive Protein Total Protein Albumin Prealbumin Triglycerides Cholesterol LDL Cholesterol Direct HDL Cholesterol 25-OH Vitamin D Total PTH Intact Urine pH Urine WBC (Auto) Urine Creatinine Urine Total Protein Fluid Total Protein Vancomycin Trough Rheumatoid Factor Complement C4 Miscellaneous Test Crossmatch 10/14/16 10/14/16 10/14/16 05:38 06:35 08:10 WBC 20.7 H RBC 2.81 L Hgb 8.4 L Hct 27.2 L MCV MCH MCHC RDW 19.4 H Plt Count Lymph % (Auto) [place] % (Auto) Lymph # [place] # Baso # Seg Neutrophils % Seg Neuts % (Manual) Lymphocytes % (Manual) Monocytes % (Manual) Eosinophils % (Manual) Basophils % (Manual) Nucleated RBC % Seg Neutrophils # Seg Neutrophils # Man Lymphocytes # (Manual) Monocytes # (Manual) Eosinophils # (Manual) Basophils # (Manual) PT INR Fibrinogen dRVVT Confirm Interp Factor V Activity POC ABG pH POC ABG pCO2 POC ABG pO2 ABG pO2 ABG HCO3 ABG Base Excess ABG Hemoglobin Oxyhemoglobin Sodium Potassium Chloride Carbon Dioxide BUN 58 H Creatinine 1.9 H Glucose 169 H POC Glucose 195 H Lactic Acid Calcium Ionized Calcium Phosphorus Magnesium Direct Bilirubin AST ALT Alkaline Phosphatase Lactate Dehydrogenase Troponin T C-Reactive Protein Total Protein Albumin Prealbumin Triglycerides Cholesterol LDL Cholesterol Direct HDL Cholesterol 25-OH Vitamin D Total PTH Intact Urine pH Urine WBC (Auto) Urine Creatinine Urine Total Protein Fluid Total Protein Vancomycin Trough Rheumatoid Factor Complement C4 Miscellaneous Test Crossmatch 10/14/16 10/14/16 10/14/16 11:44 17:13 23:28 WBC RBC Hgb Hct MCV MCH MCHC RDW Plt Count Lymph % (Auto) [place] % (Auto) Lymph # [place] # Baso # Seg Neutrophils % Seg Neuts % (Manual) Lymphocytes % (Manual) Monocytes % (Manual) Eosinophils % (Manual) Basophils % (Manual) Nucleated RBC % Seg Neutrophils # Seg Neutrophils # Man Lymphocytes # (Manual) Monocytes # (Manual) Eosinophils # (Manual) Basophils # (Manual) PT INR Fibrinogen dRVVT Confirm Interp Factor V Activity POC ABG pH POC ABG pCO2 POC ABG pO2 ABG pO2 ABG HCO3 ABG Base Excess ABG Hemoglobin Oxyhemoglobin Sodium Potassium Chloride Carbon Dioxide BUN Creatinine Glucose POC Glucose 174 H 121 H 151 H Lactic Acid Calcium Ionized Calcium Phosphorus Magnesium Direct Bilirubin AST ALT Alkaline Phosphatase Lactate Dehydrogenase Troponin T C-Reactive Protein Total Protein Albumin Prealbumin Triglycerides Cholesterol LDL Cholesterol Direct HDL Cholesterol 25-OH Vitamin D Total PTH Intact Urine pH Urine WBC (Auto) Urine Creatinine Urine Total Protein Fluid Total Protein Vancomycin Trough Rheumatoid Factor Complement C4 Miscellaneous Test Crossmatch 10/15/16 10/15/16 10/15/16 05:06 12:26 17:48 WBC RBC Hgb Hct MCV MCH MCHC RDW Plt Count Lymph % (Auto) [place] % (Auto) Lymph # [place] # Baso # Seg Neutrophils % Seg Neuts % (Manual) Lymphocytes % (Manual) Monocytes % (Manual) Eosinophils % (Manual) Basophils % (Manual) Nucleated RBC % Seg Neutrophils # Seg Neutrophils # Man Lymphocytes # (Manual) Monocytes # (Manual) Eosinophils # (Manual) Basophils # (Manual) PT INR Fibrinogen dRVVT Confirm Interp Factor V Activity POC ABG pH POC ABG pCO2 POC ABG pO2 ABG pO2 ABG HCO3 ABG Base Excess ABG Hemoglobin Oxyhemoglobin Sodium Potassium Chloride Carbon Dioxide BUN Creatinine Glucose POC Glucose 151 H 149 H 153 H Lactic Acid Calcium Ionized Calcium Phosphorus Magnesium Direct Bilirubin AST ALT Alkaline Phosphatase Lactate Dehydrogenase Troponin T C-Reactive Protein Total Protein Albumin Prealbumin Triglycerides Cholesterol LDL Cholesterol Direct HDL Cholesterol 25-OH Vitamin D Total PTH Intact Urine pH Urine WBC (Auto) Urine Creatinine Urine Total Protein Fluid Total Protein Vancomycin Trough Rheumatoid Factor Complement C4 Miscellaneous Test Crossmatch 10/15/16 10/15/16 10/16/16 Unknown Unknown 00:02 WBC 23.4 H RBC 2.78 L Hgb 8.5 L Hct 25.7 L MCV MCH MCHC RDW 18.7 H Plt Count Lymph % (Auto) [place] % (Auto) Lymph # [place] # Baso # Seg Neutrophils % Seg Neuts % (Manual) Lymphocytes % (Manual) Monocytes % (Manual) Eosinophils % (Manual) Basophils % (Manual) Nucleated RBC % Seg Neutrophils # Seg Neutrophils # Man Lymphocytes # (Manual) Monocytes # (Manual) Eosinophils # (Manual) Basophils # (Manual) PT INR Fibrinogen dRVVT Confirm Interp Factor V Activity POC ABG pH POC ABG pCO2 POC ABG pO2 ABG pO2 ABG HCO3 ABG Base Excess ABG Hemoglobin Oxyhemoglobin Sodium Potassium Chloride Carbon Dioxide BUN 73 H Creatinine 2.3 H Glucose 120 H POC Glucose 137 H Lactic Acid Calcium Ionized Calcium Phosphorus Magnesium Direct Bilirubin AST ALT Alkaline Phosphatase Lactate Dehydrogenase Troponin T C-Reactive Protein Total Protein Albumin Prealbumin Triglycerides Cholesterol LDL Cholesterol Direct HDL Cholesterol 25-OH Vitamin D Total PTH Intact Urine pH Urine WBC (Auto) Urine Creatinine Urine Total Protein Fluid Total Protein Vancomycin Trough Rheumatoid Factor Complement C4 Miscellaneous Test Crossmatch 10/16/16 10/16/16 10/16/16 05:44 06:25 06:25 WBC 22.5 H RBC 2.76 L Hgb 8.3 L Hct 25.2 L MCV MCH MCHC RDW 18.3 H Plt Count Lymph % (Auto) [place] % (Auto) Lymph # [place] # Baso # Seg Neutrophils % Seg Neuts % (Manual) Lymphocytes % (Manual) Monocytes % (Manual) Eosinophils % (Manual) Basophils % (Manual) Nucleated RBC % Seg Neutrophils # Seg Neutrophils # Man Lymphocytes # (Manual) Monocytes # (Manual) Eosinophils # (Manual) Basophils # (Manual) PT INR Fibrinogen dRVVT Confirm Interp Factor V Activity POC ABG pH POC ABG pCO2 POC ABG pO2 ABG pO2 ABG HCO3 ABG Base Excess ABG Hemoglobin Oxyhemoglobin Sodium Potassium Chloride Carbon Dioxide BUN 92 H Creatinine 3.0 H Glucose 138 H POC Glucose 110 H Lactic Acid Calcium Ionized Calcium Phosphorus Magnesium Direct Bilirubin AST ALT Alkaline Phosphatase Lactate Dehydrogenase Troponin T C-Reactive Protein Total Protein Albumin Prealbumin Triglycerides Cholesterol LDL Cholesterol Direct HDL Cholesterol 25-OH Vitamin D Total PTH Intact Urine pH Urine WBC (Auto) Urine Creatinine Urine Total Protein Fluid Total Protein Vancomycin Trough Rheumatoid Factor Complement C4 Miscellaneous Test Crossmatch 10/16/16 10/16/16 10/16/16 11:27 11:48 17:36 WBC RBC Hgb Hct MCV MCH MCHC RDW Plt Count Lymph % (Auto) [place] % (Auto) Lymph # [place] # Baso # Seg Neutrophils % Seg Neuts % (Manual) Lymphocytes % (Manual) Monocytes % (Manual) Eosinophils % (Manual) Basophils % (Manual) Nucleated RBC % Seg Neutrophils # Seg Neutrophils # Man Lymphocytes # (Manual) Monocytes # (Manual) Eosinophils # (Manual) Basophils # (Manual) PT INR Fibrinogen dRVVT Confirm Interp Factor V Activity POC ABG pH 7.582 H POC ABG pCO2 27.4 L POC ABG pO2 110 H ABG pO2 ABG HCO3 ABG Base Excess ABG Hemoglobin Oxyhemoglobin Sodium Potassium Chloride Carbon Dioxide BUN Creatinine Glucose POC Glucose 121 H 133 H Lactic Acid Calcium Ionized Calcium Phosphorus Magnesium Direct Bilirubin AST ALT Alkaline Phosphatase Lactate Dehydrogenase Troponin T C-Reactive Protein Total Protein Albumin Prealbumin Triglycerides Cholesterol LDL Cholesterol Direct HDL Cholesterol 25-OH Vitamin D Total PTH Intact Urine pH Urine WBC (Auto) Urine Creatinine Urine Total Protein Fluid Total Protein Vancomycin Trough Rheumatoid Factor Complement C4 Miscellaneous Test Crossmatch 10/16/16 10/17/16 10/17/16 20:48 04:24 04:24 WBC 21.4 H RBC 2.72 L Hgb 8.0 L Hct 25.2 L MCV MCH MCHC RDW 18.0 H Plt Count Lymph % (Auto) [place] % (Auto) Lymph # [place] # Baso # Seg Neutrophils % Seg Neuts % (Manual) Lymphocytes % (Manual) Monocytes % (Manual) Eosinophils % (Manual) Basophils % (Manual) Nucleated RBC % Seg Neutrophils # Seg Neutrophils # Man Lymphocytes # (Manual) Monocytes # (Manual) Eosinophils # (Manual) Basophils # (Manual) PT INR Fibrinogen dRVVT Confirm Interp Factor V Activity POC ABG pH 7.561 H POC ABG pCO2 24.4 L POC ABG pO2 77 L ABG pO2 ABG HCO3 ABG Base Excess ABG Hemoglobin Oxyhemoglobin Sodium 148 H Potassium Chloride Carbon Dioxide BUN 104 H Creatinine 3.0 H Glucose 149 H POC Glucose Lactic Acid Calcium Ionized Calcium Phosphorus Magnesium Direct Bilirubin AST ALT Alkaline Phosphatase 138 H Lactate Dehydrogenase Troponin T C-Reactive Protein Total Protein 6.2 L Albumin 1.5 L Prealbumin Triglycerides Cholesterol LDL Cholesterol Direct HDL Cholesterol 25-OH Vitamin D Total PTH Intact Urine pH Urine WBC (Auto) Urine Creatinine Urine Total Protein Fluid Total Protein Vancomycin Trough Rheumatoid Factor Complement C4 Miscellaneous Test Crossmatch 10/17/16 10/17/16 10/17/16 06:02 12:17 17:14 WBC RBC Hgb Hct MCV MCH MCHC RDW Plt Count Lymph % (Auto) [place] % (Auto) Lymph # [place] # Baso # Seg Neutrophils % Seg Neuts % (Manual) Lymphocytes % (Manual) Monocytes % (Manual) Eosinophils % (Manual) Basophils % (Manual) Nucleated RBC % Seg Neutrophils # Seg Neutrophils # Man Lymphocytes # (Manual) Monocytes # (Manual) Eosinophils # (Manual) Basophils # (Manual) PT INR Fibrinogen dRVVT Confirm Interp Factor V Activity POC ABG pH POC ABG pCO2 POC ABG pO2 ABG pO2 ABG HCO3 ABG Base Excess ABG Hemoglobin Oxyhemoglobin Sodium Potassium Chloride Carbon Dioxide BUN Creatinine Glucose POC Glucose 170 H 167 H 126 H Lactic Acid Calcium Ionized Calcium Phosphorus Magnesium Direct Bilirubin AST ALT Alkaline Phosphatase Lactate Dehydrogenase Troponin T C-Reactive Protein Total Protein Albumin Prealbumin Triglycerides Cholesterol LDL Cholesterol Direct HDL Cholesterol 25-OH Vitamin D Total PTH Intact Urine pH Urine WBC (Auto) Urine Creatinine Urine Total Protein Fluid Total Protein Vancomycin Trough Rheumatoid Factor Complement C4 Miscellaneous Test Crossmatch 10/17/16 10/18/16 10/18/16 23:17 04:00 04:00 WBC 20.7 H RBC 2.47 L Hgb 7.4 L Hct 22.9 L MCV MCH MCHC RDW 17.5 H Plt Count Lymph % (Auto) [place] % (Auto) Lymph # [place] # Baso # Seg Neutrophils % Seg Neuts % (Manual) Lymphocytes % (Manual) Monocytes % (Manual) Eosinophils % (Manual) Basophils % (Manual) Nucleated RBC % Seg Neutrophils # Seg Neutrophils # Man Lymphocytes # (Manual) Monocytes # (Manual) Eosinophils # (Manual) Basophils # (Manual) PT INR Fibrinogen dRVVT Confirm Interp Factor V Activity POC ABG pH POC ABG pCO2 POC ABG pO2 ABG pO2 ABG HCO3 ABG Base Excess ABG Hemoglobin Oxyhemoglobin Sodium 149 H Potassium Chloride 107.9 H Carbon Dioxide 20 L BUN 117 H Creatinine 3.2 H Glucose 119 H POC Glucose 121 H Lactic Acid Calcium Ionized Calcium Phosphorus Magnesium Direct Bilirubin AST ALT Alkaline Phosphatase Lactate Dehydrogenase Troponin T C-Reactive Protein Total Protein Albumin Prealbumin Triglycerides Cholesterol LDL Cholesterol Direct HDL Cholesterol 25-OH Vitamin D Total PTH Intact Urine pH Urine WBC (Auto) Urine Creatinine Urine Total Protein Fluid Total Protein Vancomycin Trough Rheumatoid Factor Complement C4 Miscellaneous Test Crossmatch 10/18/16 10/18/16 10/18/16 05:23 10:46 17:30 WBC RBC Hgb Hct MCV MCH MCHC RDW Plt Count Lymph % (Auto) [place] % (Auto) Lymph # [place] # Baso # Seg Neutrophils % Seg Neuts % (Manual) Lymphocytes % (Manual) Monocytes % (Manual) Eosinophils % (Manual) Basophils % (Manual) Nucleated RBC % Seg Neutrophils # Seg Neutrophils # Man Lymphocytes # (Manual) Monocytes # (Manual) Eosinophils # (Manual) Basophils # (Manual) PT INR Fibrinogen dRVVT Confirm Interp Factor V Activity POC ABG pH POC ABG pCO2 POC ABG pO2 ABG pO2 ABG HCO3 ABG Base Excess ABG Hemoglobin Oxyhemoglobin Sodium Potassium Chloride Carbon Dioxide BUN Creatinine Glucose POC Glucose 119 H 155 H 124 H Lactic Acid Calcium Ionized Calcium Phosphorus Magnesium Direct Bilirubin AST ALT Alkaline Phosphatase Lactate Dehydrogenase Troponin T C-Reactive Protein Total Protein Albumin Prealbumin Triglycerides Cholesterol LDL Cholesterol Direct HDL Cholesterol 25-OH Vitamin D Total PTH Intact Urine pH Urine WBC (Auto) Urine Creatinine Urine Total Protein Fluid Total Protein Vancomycin Trough Rheumatoid Factor Complement C4 Miscellaneous Test Crossmatch 10/19/16 10/19/16 10/19/16 04:00 04:00 05:25 WBC 17.4 H RBC 2.54 L Hgb 7.7 L Hct 23.6 L MCV MCH MCHC RDW 17.3 H Plt Count Lymph % (Auto) [place] % (Auto) Lymph # [place] # Baso # Seg Neutrophils % Seg Neuts % (Manual) Lymphocytes % (Manual) Monocytes % (Manual) Eosinophils % (Manual) Basophils % (Manual) Nucleated RBC % Seg Neutrophils # Seg Neutrophils # Man Lymphocytes # (Manual) Monocytes # (Manual) Eosinophils # (Manual) Basophils # (Manual) PT INR Fibrinogen dRVVT Confirm Interp Factor V Activity POC ABG pH POC ABG pCO2 POC ABG pO2 ABG pO2 ABG HCO3 ABG Base Excess ABG Hemoglobin Oxyhemoglobin Sodium Potassium Chloride Carbon Dioxide BUN 72 H Creatinine 2.1 H Glucose 116 H POC Glucose 119 H Lactic Acid Calcium Ionized Calcium Phosphorus Magnesium Direct Bilirubin AST ALT Alkaline Phosphatase Lactate Dehydrogenase Troponin T C-Reactive Protein Total Protein Albumin Prealbumin Triglycerides Cholesterol LDL Cholesterol Direct HDL Cholesterol 25-OH Vitamin D Total PTH Intact Urine pH Urine WBC (Auto) Urine Creatinine Urine Total Protein Fluid Total Protein Vancomycin Trough Rheumatoid Factor Complement C4 Miscellaneous Test Crossmatch 10/19/16 10/19/16 10/20/16 11:46 23:59 06:00 WBC RBC Hgb Hct MCV MCH MCHC RDW Plt Count Lymph % (Auto) [place] % (Auto) Lymph # [place] # Baso # Seg Neutrophils % Seg Neuts % (Manual) Lymphocytes % (Manual) Monocytes % (Manual) Eosinophils % (Manual) Basophils % (Manual) Nucleated RBC % Seg Neutrophils # Seg Neutrophils # Man Lymphocytes # (Manual) Monocytes # (Manual) Eosinophils # (Manual) Basophils # (Manual) PT INR Fibrinogen dRVVT Confirm Interp Factor V Activity POC ABG pH POC ABG pCO2 POC ABG pO2 ABG pO2 ABG HCO3 ABG Base Excess ABG Hemoglobin Oxyhemoglobin Sodium Potassium Chloride Carbon Dioxide 17 L BUN 94 H Creatinine 2.7 H Glucose POC Glucose 116 H 117 H Lactic Acid Calcium Ionized Calcium Phosphorus Magnesium Direct Bilirubin AST ALT Alkaline Phosphatase Lactate Dehydrogenase Troponin T C-Reactive Protein Total Protein Albumin Prealbumin Triglycerides Cholesterol LDL Cholesterol Direct HDL Cholesterol 25-OH Vitamin D Total PTH Intact Urine pH Urine WBC (Auto) Urine Creatinine Urine Total Protein Fluid Total Protein Vancomycin Trough Rheumatoid Factor Complement C4 Miscellaneous Test Crossmatch 10/20/16 10/20/16 10/20/16 06:00 11:49 16:00 WBC 19.7 H RBC 2.51 L Hgb 7.7 L Hct 23.5 L MCV MCH MCHC RDW 17.5 H Plt Count Lymph % (Auto) [place] % (Auto) Lymph # [place] # Baso # Seg Neutrophils % Seg Neuts % (Manual) Lymphocytes % (Manual) Monocytes % (Manual) Eosinophils % (Manual) Basophils % (Manual) Nucleated RBC % Seg Neutrophils # Seg Neutrophils # Man Lymphocytes # (Manual) Monocytes # (Manual) Eosinophils # (Manual) Basophils # (Manual) PT INR Fibrinogen dRVVT Confirm Interp Factor V Activity POC ABG pH POC ABG pCO2 POC ABG pO2 ABG pO2 ABG HCO3 ABG Base Excess ABG Hemoglobin Oxyhemoglobin Sodium Potassium Chloride Carbon Dioxide BUN Creatinine Glucose POC Glucose 117 H Lactic Acid Calcium Ionized Calcium Phosphorus Magnesium Direct Bilirubin AST ALT Alkaline Phosphatase Lactate Dehydrogenase Troponin T C-Reactive Protein Total Protein Albumin Prealbumin Triglycerides Cholesterol LDL Cholesterol Direct HDL Cholesterol 25-OH Vitamin D Total PTH Intact Urine pH Urine WBC (Auto) Urine Creatinine Urine Total Protein Fluid Total Protein Vancomycin Trough Rheumatoid Factor Complement C4 Miscellaneous Test Flexitest 1 H Crossmatch 10/20/16 10/20/16 10/21/16 18:36 23:39 04:00 WBC RBC Hgb Hct MCV MCH MCHC RDW Plt Count Lymph % (Auto) [place] % (Auto) Lymph # [place] # Baso # Seg Neutrophils % Seg Neuts % (Manual) Lymphocytes % (Manual) Monocytes % (Manual) Eosinophils % (Manual) Basophils % (Manual) Nucleated RBC % Seg Neutrophils # Seg Neutrophils # Man Lymphocytes # (Manual) Monocytes # (Manual) Eosinophils # (Manual) Basophils # (Manual) PT INR Fibrinogen dRVVT Confirm Interp Factor V Activity POC ABG pH POC ABG pCO2 POC ABG pO2 ABG pO2 ABG HCO3 ABG Base Excess ABG Hemoglobin Oxyhemoglobin Sodium Potassium 5.4 H D Chloride Carbon Dioxide 15 L BUN 110 H Creatinine 3.0 H Glucose POC Glucose 127 H 114 H Lactic Acid Calcium Ionized Calcium Phosphorus Magnesium Direct Bilirubin AST ALT Alkaline Phosphatase Lactate Dehydrogenase Troponin T C-Reactive Protein Total Protein Albumin Prealbumin Triglycerides Cholesterol LDL Cholesterol Direct HDL Cholesterol 25-OH Vitamin D Total PTH Intact Urine pH Urine WBC (Auto) Urine Creatinine Urine Total Protein Fluid Total Protein Vancomycin Trough Rheumatoid Factor Complement C4 Miscellaneous Test Crossmatch 10/21/16 10/21/16 10/22/16 05:54 23:46 05:18 WBC RBC Hgb Hct MCV MCH MCHC RDW Plt Count Lymph % (Auto) [place] % (Auto) Lymph # [place] # Baso # Seg Neutrophils % Seg Neuts % (Manual) Lymphocytes % (Manual) Monocytes % (Manual) Eosinophils % (Manual) Basophils % (Manual) Nucleated RBC % Seg Neutrophils # Seg Neutrophils # Man Lymphocytes # (Manual) Monocytes # (Manual) Eosinophils # (Manual) Basophils # (Manual) PT INR Fibrinogen dRVVT Confirm Interp Factor V Activity POC ABG pH POC ABG pCO2 POC ABG pO2 ABG pO2 ABG HCO3 ABG Base Excess ABG Hemoglobin Oxyhemoglobin Sodium Potassium Chloride Carbon Dioxide BUN Creatinine Glucose POC Glucose 119 H 108 H 109 H Lactic Acid Calcium Ionized Calcium Phosphorus Magnesium Direct Bilirubin AST ALT Alkaline Phosphatase Lactate Dehydrogenase Troponin T C-Reactive Protein Total Protein Albumin Prealbumin Triglycerides Cholesterol LDL Cholesterol Direct HDL Cholesterol 25-OH Vitamin D Total PTH Intact Urine pH Urine WBC (Auto) Urine Creatinine Urine Total Protein Fluid Total Protein Vancomycin Trough Rheumatoid Factor Complement C4 Miscellaneous Test Crossmatch 10/22/16 10/22/16 10/22/16 06:40 06:40 06:40 WBC 14.0 H RBC 2.03 L Hgb 7.0 L Hct 20.5 L MCV 98 H MCH 34 H MCHC 35 H RDW 17.8 H Plt Count Lymph % (Auto) [place] % (Auto) 9.9 H Lymph # [place] # 1.4 H Baso # 0.2 H Seg Neutrophils % 72.0 H Seg Neuts % (Manual) Lymphocytes % (Manual) Monocytes % (Manual) Eosinophils % (Manual) Basophils % (Manual) Nucleated RBC % Seg Neutrophils # 10.0 H Seg Neutrophils # Man Lymphocytes # (Manual) Monocytes # (Manual) Eosinophils # (Manual) Basophils # (Manual) PT INR Fibrinogen dRVVT Confirm Interp Factor V Activity POC ABG pH POC ABG pCO2 POC ABG pO2 ABG pO2 ABG HCO3 ABG Base Excess ABG Hemoglobin Oxyhemoglobin Sodium 130 L D Potassium Chloride 92.4 L Carbon Dioxide 20 L BUN 50 H Creatinine 1.6 H Glucose 589 H* POC Glucose Lactic Acid Calcium 7.8 L D Ionized Calcium Phosphorus Magnesium 1.60 L Direct Bilirubin AST ALT Alkaline Phosphatase Lactate Dehydrogenase Troponin T C-Reactive Protein Total Protein Albumin Prealbumin Triglycerides Cholesterol LDL Cholesterol Direct HDL Cholesterol 25-OH Vitamin D Total PTH Intact Urine pH Urine WBC (Auto) Urine Creatinine Urine Total Protein Fluid Total Protein Vancomycin Trough Rheumatoid Factor Complement C4 Miscellaneous Test Crossmatch 10/22/16 10/22/16 10/22/16 11:39 16:44 23:36 WBC RBC Hgb Hct MCV MCH MCHC RDW Plt Count Lymph % (Auto) [place] % (Auto) Lymph # [place] # Baso # Seg Neutrophils % Seg Neuts % (Manual) Lymphocytes % (Manual) Monocytes % (Manual) Eosinophils % (Manual) Basophils % (Manual) Nucleated RBC % Seg Neutrophils # Seg Neutrophils # Man Lymphocytes # (Manual) Monocytes # (Manual) Eosinophils # (Manual) Basophils # (Manual) PT INR Fibrinogen dRVVT Confirm Interp Factor V Activity POC ABG pH POC ABG pCO2 POC ABG pO2 ABG pO2 ABG HCO3 ABG Base Excess ABG Hemoglobin Oxyhemoglobin Sodium Potassium Chloride Carbon Dioxide BUN Creatinine Glucose POC Glucose 142 H 163 H 123 H Lactic Acid Calcium Ionized Calcium Phosphorus Magnesium Direct Bilirubin AST ALT Alkaline Phosphatase Lactate Dehydrogenase Troponin T C-Reactive Protein Total Protein Albumin Prealbumin Triglycerides Cholesterol LDL Cholesterol Direct HDL Cholesterol 25-OH Vitamin D Total PTH Intact Urine pH Urine WBC (Auto) Urine Creatinine Urine Total Protein Fluid Total Protein Vancomycin Trough Rheumatoid Factor Complement C4 Miscellaneous Test Crossmatch 10/23/16 10/23/16 10/23/16 04:58 06:00 12:12 WBC RBC Hgb Hct MCV MCH MCHC RDW Plt Count Lymph % (Auto) [place] % (Auto) Lymph # [place] # Baso # Seg Neutrophils % Seg Neuts % (Manual) Lymphocytes % (Manual) Monocytes % (Manual) Eosinophils % (Manual) Basophils % (Manual) Nucleated RBC % Seg Neutrophils # Seg Neutrophils # Man Lymphocytes # (Manual) Monocytes # (Manual) Eosinophils # (Manual) Basophils # (Manual) PT INR Fibrinogen dRVVT Confirm Interp Factor V Activity POC ABG pH POC ABG pCO2 POC ABG pO2 ABG pO2 ABG HCO3 ABG Base Excess ABG Hemoglobin Oxyhemoglobin Sodium 133 L Potassium 3.5 L Chloride 96.1 L Carbon Dioxide 18 L BUN 76 H Creatinine 2.1 H Glucose POC Glucose 133 H 138 H Lactic Acid Calcium 8.3 L Ionized Calcium Phosphorus Magnesium Direct Bilirubin AST ALT Alkaline Phosphatase Lactate Dehydrogenase Troponin T C-Reactive Protein Total Protein Albumin Prealbumin Triglycerides Cholesterol LDL Cholesterol Direct HDL Cholesterol 25-OH Vitamin D Total PTH Intact Urine pH Urine WBC (Auto) Urine Creatinine Urine Total Protein Fluid Total Protein Vancomycin Trough Rheumatoid Factor Complement C4 Miscellaneous Test Crossmatch 10/23/16 10/23/16 10/24/16 16:53 23:37 04:00 WBC RBC Hgb Hct MCV MCH MCHC RDW Plt Count Lymph % (Auto) [place] % (Auto) Lymph # [place] # Baso # Seg Neutrophils % Seg Neuts % (Manual) Lymphocytes % (Manual) Monocytes % (Manual) Eosinophils % (Manual) Basophils % (Manual) Nucleated RBC % Seg Neutrophils # Seg Neutrophils # Man Lymphocytes # (Manual) Monocytes # (Manual) Eosinophils # (Manual) Basophils # (Manual) PT INR Fibrinogen dRVVT Confirm Interp Factor V Activity POC ABG pH POC ABG pCO2 POC ABG pO2 ABG pO2 ABG HCO3 ABG Base Excess ABG Hemoglobin Oxyhemoglobin Sodium 131 L Potassium Chloride 94.5 L Carbon Dioxide 19 L BUN 97 H Creatinine 2.6 H Glucose 110 H POC Glucose 125 H 123 H Lactic Acid Calcium 8.3 L Ionized Calcium Phosphorus Magnesium Direct Bilirubin AST ALT Alkaline Phosphatase Lactate Dehydrogenase Troponin T C-Reactive Protein Total Protein Albumin Prealbumin Triglycerides Cholesterol LDL Cholesterol Direct HDL Cholesterol 25-OH Vitamin D Total PTH Intact Urine pH Urine WBC (Auto) Urine Creatinine Urine Total Protein Fluid Total Protein Vancomycin Trough Rheumatoid Factor Complement C4 Miscellaneous Test Crossmatch 10/24/16 10/24/16 10/24/16 07:49 11:39 17:52 WBC RBC Hgb 6.0 L Hct 19.7 L* MCV MCH MCHC RDW Plt Count Lymph % (Auto) [place] % (Auto) Lymph # [place] # Baso # Seg Neutrophils % Seg Neuts % (Manual) Lymphocytes % (Manual) Monocytes % (Manual) Eosinophils % (Manual) Basophils % (Manual) Nucleated RBC % Seg Neutrophils # Seg Neutrophils # Man Lymphocytes # (Manual) Monocytes # (Manual) Eosinophils # (Manual) Basophils # (Manual) PT INR Fibrinogen dRVVT Confirm Interp Factor V Activity POC ABG pH POC ABG pCO2 POC ABG pO2 ABG pO2 ABG HCO3 ABG Base Excess ABG Hemoglobin Oxyhemoglobin Sodium Potassium Chloride Carbon Dioxide BUN Creatinine Glucose POC Glucose 106 H 158 H Lactic Acid Calcium Ionized Calcium Phosphorus Magnesium Direct Bilirubin AST ALT Alkaline Phosphatase Lactate Dehydrogenase Troponin T C-Reactive Protein Total Protein Albumin Prealbumin Triglycerides Cholesterol LDL Cholesterol Direct HDL Cholesterol 25-OH Vitamin D Total PTH Intact Urine pH Urine WBC (Auto) Urine Creatinine Urine Total Protein Fluid Total Protein Vancomycin Trough Rheumatoid Factor Complement C4 Miscellaneous Test Crossmatch 10/24/16 10/24/16 10/24/16 20:00 22:27 Unknown WBC RBC Hgb 9.4 L D Hct 27.5 L D MCV MCH MCHC RDW Plt Count Lymph % (Auto) [place] % (Auto) Lymph # [place] # Baso # Seg Neutrophils % Seg Neuts % (Manual) Lymphocytes % (Manual) Monocytes % (Manual) Eosinophils % (Manual) Basophils % (Manual) Nucleated RBC % Seg Neutrophils # Seg Neutrophils # Man Lymphocytes # (Manual) Monocytes # (Manual) Eosinophils # (Manual) Basophils # (Manual) PT INR Fibrinogen dRVVT Confirm Interp Factor V Activity POC ABG pH POC ABG pCO2 POC ABG pO2 ABG pO2 ABG HCO3 ABG Base Excess ABG Hemoglobin Oxyhemoglobin Sodium Potassium Chloride Carbon Dioxide BUN Creatinine Glucose POC Glucose 125 H Lactic Acid Calcium Ionized Calcium Phosphorus Magnesium Direct Bilirubin AST ALT Alkaline Phosphatase Lactate Dehydrogenase Troponin T C-Reactive Protein Total Protein Albumin Prealbumin Triglycerides Cholesterol LDL Cholesterol Direct HDL Cholesterol 25-OH Vitamin D Total PTH Intact Urine pH Urine WBC (Auto) Urine Creatinine Urine Total Protein Fluid Total Protein Vancomycin Trough Rheumatoid Factor Complement C4 Miscellaneous Test Crossmatch See Detail 10/25/16 10/25/16 10/25/16 04:00 04:00 04:00 WBC 14.2 H RBC 2.98 L Hgb 9.0 L Hct 26.2 L MCV MCH MCHC RDW 16.6 H Plt Count Lymph % (Auto) [place] % (Auto) 10.7 H Lymph # [place] # 1.5 H Baso # Seg Neutrophils % 73.6 H Seg Neuts % (Manual) Lymphocytes % (Manual) Monocytes % (Manual) Eosinophils % (Manual) Basophils % (Manual) Nucleated RBC % Seg Neutrophils # 10.5 H Seg Neutrophils # Man Lymphocytes # (Manual) Monocytes # (Manual) Eosinophils # (Manual) Basophils # (Manual) PT INR Fibrinogen dRVVT Confirm Interp Factor V Activity POC ABG pH POC ABG pCO2 POC ABG pO2 ABG pO2 ABG HCO3 ABG Base Excess ABG Hemoglobin Oxyhemoglobin Sodium 132 L Potassium Chloride 94.7 L Carbon Dioxide BUN 51 H Creatinine 1.6 H Glucose 130 H POC Glucose Lactic Acid Calcium 8.3 L Ionized Calcium Phosphorus 1.60 L D Magnesium Direct Bilirubin AST ALT Alkaline Phosphatase Lactate Dehydrogenase Troponin T C-Reactive Protein Total Protein Albumin Prealbumin Triglycerides Cholesterol LDL Cholesterol Direct HDL Cholesterol 25-OH Vitamin D Total PTH Intact Urine pH Urine WBC (Auto) Urine Creatinine Urine Total Protein Fluid Total Protein Vancomycin Trough Rheumatoid Factor Complement C4 Miscellaneous Test Crossmatch 10/25/16 10/25/16 10/25/16 04:32 11:48 17:22 WBC RBC Hgb Hct MCV MCH MCHC RDW Plt Count Lymph % (Auto) [place] % (Auto) Lymph # [place] # Baso # Seg Neutrophils % Seg Neuts % (Manual) Lymphocytes % (Manual) Monocytes % (Manual) Eosinophils % (Manual) Basophils % (Manual) Nucleated RBC % Seg Neutrophils # Seg Neutrophils # Man Lymphocytes # (Manual) Monocytes # (Manual) Eosinophils # (Manual) Basophils # (Manual) PT INR Fibrinogen dRVVT Confirm Interp Factor V Activity POC ABG pH POC ABG pCO2 POC ABG pO2 ABG pO2 ABG HCO3 ABG Base Excess ABG Hemoglobin Oxyhemoglobin Sodium Potassium Chloride Carbon Dioxide BUN Creatinine Glucose POC Glucose 124 H 171 H 120 H Lactic Acid Calcium Ionized Calcium Phosphorus Magnesium Direct Bilirubin AST ALT Alkaline Phosphatase Lactate Dehydrogenase Troponin T C-Reactive Protein Total Protein Albumin Prealbumin Triglycerides Cholesterol LDL Cholesterol Direct HDL Cholesterol 25-OH Vitamin D Total PTH Intact Urine pH Urine WBC (Auto) Urine Creatinine Urine Total Protein Fluid Total Protein Vancomycin Trough Rheumatoid Factor Complement C4 Miscellaneous Test Crossmatch 10/26/16 10/26/16 10/26/16 04:54 07:06 07:06 WBC 16.9 H RBC 3.06 L Hgb 9.1 L Hct 26.9 L MCV MCH MCHC RDW 16.9 H Plt Count Lymph % (Auto) [place] % (Auto) Lymph # [place] # Baso # Seg Neutrophils % Seg Neuts % (Manual) 71.0 H Lymphocytes % (Manual) 5.0 L Monocytes % (Manual) 12.0 H Eosinophils % (Manual) Basophils % (Manual) Nucleated RBC % Seg Neutrophils # Seg Neutrophils # Man 12.0 H Lymphocytes # (Manual) 0.8 L Monocytes # (Manual) 2.0 H Eosinophils # (Manual) Basophils # (Manual) PT INR Fibrinogen dRVVT Confirm Interp Factor V Activity POC ABG pH POC ABG pCO2 POC ABG pO2 ABG pO2 ABG HCO3 ABG Base Excess ABG Hemoglobin Oxyhemoglobin Sodium 135 L Potassium Chloride 97.1 L Carbon Dioxide BUN 73 H Creatinine 2.2 H Glucose 117 H POC Glucose 123 H Lactic Acid Calcium Ionized Calcium Phosphorus 1.70 L Magnesium Direct Bilirubin AST ALT Alkaline Phosphatase Lactate Dehydrogenase Troponin T C-Reactive Protein Total Protein Albumin Prealbumin Triglycerides Cholesterol LDL Cholesterol Direct HDL Cholesterol 25-OH Vitamin D Total PTH Intact Urine pH Urine WBC (Auto) Urine Creatinine Urine Total Protein Fluid Total Protein Vancomycin Trough Rheumatoid Factor Complement C4 Miscellaneous Test Crossmatch 10/26/16 10/26/16 10/26/16 12:12 17:29 23:42 WBC RBC Hgb Hct MCV MCH MCHC RDW Plt Count Lymph % (Auto) [place] % (Auto) Lymph # [place] # Baso # Seg Neutrophils % Seg Neuts % (Manual) Lymphocytes % (Manual) Monocytes % (Manual) Eosinophils % (Manual) Basophils % (Manual) Nucleated RBC % Seg Neutrophils # Seg Neutrophils # Man Lymphocytes # (Manual) Monocytes # (Manual) Eosinophils # (Manual) Basophils # (Manual) PT INR Fibrinogen dRVVT Confirm Interp Factor V Activity POC ABG pH POC ABG pCO2 POC ABG pO2 ABG pO2 ABG HCO3 ABG Base Excess ABG Hemoglobin Oxyhemoglobin Sodium Potassium Chloride Carbon Dioxide BUN Creatinine Glucose POC Glucose 126 H 161 H 118 H Lactic Acid Calcium Ionized Calcium Phosphorus Magnesium Direct Bilirubin AST ALT Alkaline Phosphatase Lactate Dehydrogenase Troponin T C-Reactive Protein Total Protein Albumin Prealbumin Triglycerides Cholesterol LDL Cholesterol Direct HDL Cholesterol 25-OH Vitamin D Total PTH Intact Urine pH Urine WBC (Auto) Urine Creatinine Urine Total Protein Fluid Total Protein Vancomycin Trough Rheumatoid Factor Complement C4 Miscellaneous Test Crossmatch 10/27/16 10/27/16 10/27/16 05:03 06:30 06:30 WBC 13.9 H RBC 3.09 L Hgb 9.2 L Hct 27.5 L MCV MCH MCHC RDW 17.0 H Plt Count Lymph % (Auto) [place] % (Auto) Lymph # [place] # Baso # Seg Neutrophils % Seg Neuts % (Manual) 78.0 H Lymphocytes % (Manual) Monocytes % (Manual) Eosinophils % (Manual) Basophils % (Manual) Nucleated RBC % 2.0 H Seg Neutrophils # Seg Neutrophils # Man 10.8 H Lymphocytes # (Manual) Monocytes # (Manual) 1.0 H Eosinophils # (Manual) Basophils # (Manual) PT INR Fibrinogen dRVVT Confirm Interp Factor V Activity POC ABG pH POC ABG pCO2 POC ABG pO2 ABG pO2 ABG HCO3 ABG Base Excess ABG Hemoglobin Oxyhemoglobin Sodium Potassium Chloride Carbon Dioxide BUN 40 H Creatinine 1.5 H Glucose 135 H POC Glucose 107 H Lactic Acid Calcium 8.3 L Ionized Calcium Phosphorus 1.30 L D Magnesium Direct Bilirubin AST ALT Alkaline Phosphatase Lactate Dehydrogenase Troponin T C-Reactive Protein Total Protein Albumin Prealbumin Triglycerides Cholesterol LDL Cholesterol Direct HDL Cholesterol 25-OH Vitamin D Total PTH Intact Urine pH Urine WBC (Auto) Urine Creatinine Urine Total Protein Fluid Total Protein Vancomycin Trough Rheumatoid Factor Complement C4 Miscellaneous Test Crossmatch 10/27/16 10/27/16 10/27/16 13:27 18:07 23:40 WBC RBC Hgb Hct MCV MCH MCHC RDW Plt Count Lymph % (Auto) [place] % (Auto) Lymph # [place] # Baso # Seg Neutrophils % Seg Neuts % (Manual) Lymphocytes % (Manual) Monocytes % (Manual) Eosinophils % (Manual) Basophils % (Manual) Nucleated RBC % Seg Neutrophils # Seg Neutrophils # Man Lymphocytes # (Manual) Monocytes # (Manual) Eosinophils # (Manual) Basophils # (Manual) PT INR Fibrinogen dRVVT Confirm Interp Factor V Activity POC ABG pH POC ABG pCO2 POC ABG pO2 ABG pO2 ABG HCO3 ABG Base Excess ABG Hemoglobin Oxyhemoglobin Sodium Potassium Chloride Carbon Dioxide BUN Creatinine Glucose POC Glucose 117 H 121 H 118 H Lactic Acid Calcium Ionized Calcium Phosphorus Magnesium Direct Bilirubin AST ALT Alkaline Phosphatase Lactate Dehydrogenase Troponin T C-Reactive Protein Total Protein Albumin Prealbumin Triglycerides Cholesterol LDL Cholesterol Direct HDL Cholesterol 25-OH Vitamin D Total PTH Intact Urine pH Urine WBC (Auto) Urine Creatinine Urine Total Protein Fluid Total Protein Vancomycin Trough Rheumatoid Factor Complement C4 Miscellaneous Test Crossmatch 10/28/16 10/28/16 10/28/16 05:48 06:45 06:45 WBC 14.7 H RBC 3.05 L Hgb 9.0 L Hct 26.9 L MCV MCH MCHC RDW 16.8 H Plt Count Lymph % (Auto) 8.2 L [place] % (Auto) 8.4 H Lymph # [place] # 1.2 H Baso # Seg Neutrophils % 81.9 H Seg Neuts % (Manual) Lymphocytes % (Manual) Monocytes % (Manual) Eosinophils % (Manual) Basophils % (Manual) Nucleated RBC % Seg Neutrophils # 12.1 H Seg Neutrophils # Man Lymphocytes # (Manual) Monocytes # (Manual) Eosinophils # (Manual) Basophils # (Manual) PT INR Fibrinogen dRVVT Confirm Interp Factor V Activity POC ABG pH POC ABG pCO2 POC ABG pO2 ABG pO2 ABG HCO3 ABG Base Excess ABG Hemoglobin Oxyhemoglobin Sodium Potassium Chloride Carbon Dioxide BUN 60 H Creatinine 1.9 H Glucose 120 H POC Glucose 114 H Lactic Acid Calcium Ionized Calcium Phosphorus Magnesium Direct Bilirubin AST ALT Alkaline Phosphatase Lactate Dehydrogenase Troponin T C-Reactive Protein Total Protein Albumin Prealbumin Triglycerides Cholesterol LDL Cholesterol Direct HDL Cholesterol 25-OH Vitamin D Total PTH Intact Urine pH Urine WBC (Auto) Urine Creatinine Urine Total Protein Fluid Total Protein Vancomycin Trough Rheumatoid Factor Complement C4 Miscellaneous Test Crossmatch 10/28/16 10/28/16 10/29/16 17:08 23:50 05:10 WBC RBC Hgb Hct MCV MCH MCHC RDW Plt Count Lymph % (Auto) [place] % (Auto) Lymph # [place] # Baso # Seg Neutrophils % Seg Neuts % (Manual) Lymphocytes % (Manual) Monocytes % (Manual) Eosinophils % (Manual) Basophils % (Manual) Nucleated RBC % Seg Neutrophils # Seg Neutrophils # Man Lymphocytes # (Manual) Monocytes # (Manual) Eosinophils # (Manual) Basophils # (Manual) PT INR Fibrinogen dRVVT Confirm Interp Factor V Activity POC ABG pH POC ABG pCO2 POC ABG pO2 ABG pO2 ABG HCO3 ABG Base Excess ABG Hemoglobin Oxyhemoglobin Sodium Potassium Chloride Carbon Dioxide BUN Creatinine Glucose POC Glucose 109 H 110 H 124 H Lactic Acid Calcium Ionized Calcium Phosphorus Magnesium Direct Bilirubin AST ALT Alkaline Phosphatase Lactate Dehydrogenase Troponin T C-Reactive Protein Total Protein Albumin Prealbumin Triglycerides Cholesterol LDL Cholesterol Direct HDL Cholesterol 25-OH Vitamin D Total PTH Intact Urine pH Urine WBC (Auto) Urine Creatinine Urine Total Protein Fluid Total Protein Vancomycin Trough Rheumatoid Factor Complement C4 Miscellaneous Test Crossmatch 10/29/16 10/29/16 10/29/16 07:45 07:45 12:19 WBC 14.7 H RBC 3.15 L Hgb 9.3 L Hct 28.9 L MCV MCH MCHC RDW 17.0 H Plt Count Lymph % (Auto) 11.9 L [place] % (Auto) 8.6 H Lymph # [place] # 1.3 H Baso # Seg Neutrophils % 78.1 H Seg Neuts % (Manual) Lymphocytes % (Manual) Monocytes % (Manual) Eosinophils % (Manual) Basophils % (Manual) Nucleated RBC % Seg Neutrophils # 11.4 H Seg Neutrophils # Man Lymphocytes # (Manual) Monocytes # (Manual) Eosinophils # (Manual) Basophils # (Manual) PT INR Fibrinogen dRVVT Confirm Interp Factor V Activity POC ABG pH POC ABG pCO2 POC ABG pO2 ABG pO2 ABG HCO3 ABG Base Excess ABG Hemoglobin Oxyhemoglobin Sodium Potassium 5.1 H Chloride Carbon Dioxide 19 L BUN 78 H Creatinine 2.2 H Glucose 116 H POC Glucose 118 H Lactic Acid Calcium Ionized Calcium Phosphorus Magnesium Direct Bilirubin AST ALT Alkaline Phosphatase Lactate Dehydrogenase Troponin T C-Reactive Protein Total Protein Albumin Prealbumin Triglycerides Cholesterol LDL Cholesterol Direct HDL Cholesterol 25-OH Vitamin D Total PTH Intact Urine pH Urine WBC (Auto) Urine Creatinine Urine Total Protein Fluid Total Protein Vancomycin Trough Rheumatoid Factor Complement C4 Miscellaneous Test Crossmatch 10/29/16 10/30/16 10/30/16 17:49 01:52 03:28 WBC RBC Hgb Hct MCV MCH MCHC RDW Plt Count Lymph % (Auto) [place] % (Auto) Lymph # [place] # Baso # Seg Neutrophils % Seg Neuts % (Manual) Lymphocytes % (Manual) Monocytes % (Manual) Eosinophils % (Manual) Basophils % (Manual) Nucleated RBC % Seg Neutrophils # Seg Neutrophils # Man Lymphocytes # (Manual) Monocytes # (Manual) Eosinophils # (Manual) Basophils # (Manual) PT INR Fibrinogen dRVVT Confirm Interp Factor V Activity POC ABG pH POC ABG pCO2 POC ABG pO2 ABG pO2 ABG HCO3 ABG Base Excess ABG Hemoglobin Oxyhemoglobin Sodium Potassium 5.4 H Chloride 97.5 L Carbon Dioxide 19 L BUN 90 H Creatinine 2.5 H Glucose POC Glucose 120 H 129 H Lactic Acid Calcium Ionized Calcium Phosphorus 5.20 H Magnesium Direct Bilirubin AST ALT Alkaline Phosphatase Lactate Dehydrogenase Troponin T C-Reactive Protein Total Protein Albumin Prealbumin Triglycerides Cholesterol LDL Cholesterol Direct HDL Cholesterol 25-OH Vitamin D Total PTH Intact Urine pH Urine WBC (Auto) Urine Creatinine Urine Total Protein Fluid Total Protein Vancomycin Trough Rheumatoid Factor Complement C4 Miscellaneous Test Crossmatch 10/30/16 10/30/16 10/30/16 03:28 08:19 08:19 WBC 11.6 H 15.9 H RBC 2.75 L 2.82 L Hgb 7.9 L 8.3 L Hct 24.2 L 25.2 L MCV MCH MCHC RDW 16.7 H 17.2 H Plt Count Lymph % (Auto) [place] % (Auto) 9.8 H Lymph # [place] # 1.1 H Baso # Seg Neutrophils % 74.2 H Seg Neuts % (Manual) Lymphocytes % (Manual) Monocytes % (Manual) Eosinophils % (Manual) Basophils % (Manual) Nucleated RBC % Seg Neutrophils # 8.6 H Seg Neutrophils # Man Lymphocytes # (Manual) Monocytes # (Manual) Eosinophils # (Manual) Basophils # (Manual) PT INR Fibrinogen dRVVT Confirm Interp Factor V Activity POC ABG pH POC ABG pCO2 POC ABG pO2 ABG pO2 ABG HCO3 ABG Base Excess ABG Hemoglobin Oxyhemoglobin Sodium Potassium 5.3 H Chloride 97.4 L Carbon Dioxide 19 L BUN 93 H Creatinine 2.6 H Glucose POC Glucose Lactic Acid Calcium Ionized Calcium Phosphorus Magnesium Direct Bilirubin AST ALT Alkaline Phosphatase Lactate Dehydrogenase Troponin T C-Reactive Protein Total Protein Albumin Prealbumin Triglycerides Cholesterol LDL Cholesterol Direct HDL Cholesterol 25-OH Vitamin D Total PTH Intact Urine pH Urine WBC (Auto) Urine Creatinine Urine Total Protein Fluid Total Protein Vancomycin Trough Rheumatoid Factor Complement C4 Miscellaneous Test Crossmatch 10/30/16 10/30/16 10/31/16 17:11 23:56 00:40 WBC RBC Hgb Hct MCV MCH MCHC RDW Plt Count Lymph % (Auto) [place] % (Auto) Lymph # [place] # Baso # Seg Neutrophils % Seg Neuts % (Manual) Lymphocytes % (Manual) Monocytes % (Manual) Eosinophils % (Manual) Basophils % (Manual) Nucleated RBC % Seg Neutrophils # Seg Neutrophils # Man Lymphocytes # (Manual) Monocytes # (Manual) Eosinophils # (Manual) Basophils # (Manual) PT INR Fibrinogen dRVVT Confirm Interp Factor V Activity POC ABG pH POC ABG pCO2 POC ABG pO2 ABG pO2 ABG HCO3 ABG Base Excess ABG Hemoglobin Oxyhemoglobin Sodium Potassium Chloride Carbon Dioxide BUN Creatinine Glucose POC Glucose 106 H 117 H 120 H Lactic Acid Calcium Ionized Calcium Phosphorus Magnesium Direct Bilirubin AST ALT Alkaline Phosphatase Lactate Dehydrogenase Troponin T C-Reactive Protein Total Protein Albumin Prealbumin Triglycerides Cholesterol LDL Cholesterol Direct HDL Cholesterol 25-OH Vitamin D Total PTH Intact Urine pH Urine WBC (Auto) Urine Creatinine Urine Total Protein Fluid Total Protein Vancomycin Trough Rheumatoid Factor Complement C4 Miscellaneous Test Crossmatch 10/31/16 10/31/16 10/31/16 05:43 07:15 07:15 WBC 12.1 H RBC 2.63 L Hgb 7.7 L Hct 23.3 L MCV MCH MCHC RDW 16.7 H Plt Count Lymph % (Auto) 11.7 L [place] % (Auto) 7.7 H Lymph # [place] # 0.9 H Baso # Seg Neutrophils % 78.0 H Seg Neuts % (Manual) Lymphocytes % (Manual) Monocytes % (Manual) Eosinophils % (Manual) Basophils % (Manual) Nucleated RBC % Seg Neutrophils # 9.4 H Seg Neutrophils # Man Lymphocytes # (Manual) Monocytes # (Manual) Eosinophils # (Manual) Basophils # (Manual) PT INR Fibrinogen dRVVT Confirm Interp Factor V Activity POC ABG pH POC ABG pCO2 POC ABG pO2 ABG pO2 ABG HCO3 ABG Base Excess ABG Hemoglobin Oxyhemoglobin Sodium Potassium Chloride 96.4 L Carbon Dioxide 21 L BUN 99 H Creatinine 2.6 H Glucose 144 H POC Glucose 125 H Lactic Acid Calcium Ionized Calcium Phosphorus 4.80 H Magnesium Direct Bilirubin AST ALT Alkaline Phosphatase Lactate Dehydrogenase Troponin T C-Reactive Protein Total Protein Albumin Prealbumin Triglycerides Cholesterol LDL Cholesterol Direct HDL Cholesterol 25-OH Vitamin D Total PTH Intact Urine pH Urine WBC (Auto) Urine Creatinine Urine Total Protein Fluid Total Protein Vancomycin Trough Rheumatoid Factor Complement C4 Miscellaneous Test Crossmatch 10/31/16 10/31/16 11/01/16 11:46 18:34 00:20 WBC RBC Hgb Hct MCV MCH MCHC RDW Plt Count Lymph % (Auto) [place] % (Auto) Lymph # [place] # Baso # Seg Neutrophils % Seg Neuts % (Manual) Lymphocytes % (Manual) Monocytes % (Manual) Eosinophils % (Manual) Basophils % (Manual) Nucleated RBC % Seg Neutrophils # Seg Neutrophils # Man Lymphocytes # (Manual) Monocytes # (Manual) Eosinophils # (Manual) Basophils # (Manual) PT INR Fibrinogen dRVVT Confirm Interp Factor V Activity POC ABG pH POC ABG pCO2 POC ABG pO2 ABG pO2 ABG HCO3 ABG Base Excess ABG Hemoglobin Oxyhemoglobin Sodium Potassium Chloride Carbon Dioxide BUN Creatinine Glucose POC Glucose 159 H 140 H 132 H Lactic Acid Calcium Ionized Calcium Phosphorus Magnesium Direct Bilirubin AST ALT Alkaline Phosphatase Lactate Dehydrogenase Troponin T C-Reactive Protein Total Protein Albumin Prealbumin Triglycerides Cholesterol LDL Cholesterol Direct HDL Cholesterol 25-OH Vitamin D Total PTH Intact Urine pH Urine WBC (Auto) Urine Creatinine Urine Total Protein Fluid Total Protein Vancomycin Trough Rheumatoid Factor Complement C4 Miscellaneous Test Crossmatch 11/01/16 11/01/16 11/01/16 04:55 04:55 06:11 WBC 11.2 H RBC 2.68 L Hgb 7.5 L Hct 23.7 L MCV MCH MCHC RDW 16.1 H Plt Count Lymph % (Auto) [place] % (Auto) 9.8 H Lymph # [place] # 1.1 H Baso # Seg Neutrophils % 70.8 H Seg Neuts % (Manual) Lymphocytes % (Manual) Monocytes % (Manual) Eosinophils % (Manual) Basophils % (Manual) Nucleated RBC % Seg Neutrophils # 7.9 H Seg Neutrophils # Man Lymphocytes # (Manual) Monocytes # (Manual) Eosinophils # (Manual) Basophils # (Manual) PT INR Fibrinogen dRVVT Confirm Interp Factor V Activity POC ABG pH POC ABG pCO2 POC ABG pO2 ABG pO2 ABG HCO3 ABG Base Excess ABG Hemoglobin Oxyhemoglobin Sodium Potassium 3.3 L D Chloride Carbon Dioxide BUN 61 H Creatinine 1.9 H Glucose 114 H POC Glucose 115 H Lactic Acid Calcium Ionized Calcium Phosphorus 1.80 L D Magnesium Direct Bilirubin AST ALT Alkaline Phosphatase Lactate Dehydrogenase Troponin T C-Reactive Protein Total Protein Albumin Prealbumin Triglycerides Cholesterol LDL Cholesterol Direct HDL Cholesterol 25-OH Vitamin D Total PTH Intact Urine pH Urine WBC (Auto) Urine Creatinine Urine Total Protein Fluid Total Protein Vancomycin Trough Rheumatoid Factor Complement C4 Miscellaneous Test Crossmatch 11/01/16 11/01/16 11/01/16 12:29 18:23 23:58 WBC RBC Hgb Hct MCV MCH MCHC RDW Plt Count Lymph % (Auto) [place] % (Auto) Lymph # [place] # Baso # Seg Neutrophils % Seg Neuts % (Manual) Lymphocytes % (Manual) Monocytes % (Manual) Eosinophils % (Manual) Basophils % (Manual) Nucleated RBC % Seg Neutrophils # Seg Neutrophils # Man Lymphocytes # (Manual) Monocytes # (Manual) Eosinophils # (Manual) Basophils # (Manual) PT INR Fibrinogen dRVVT Confirm Interp Factor V Activity POC ABG pH POC ABG pCO2 POC ABG pO2 ABG pO2 ABG HCO3 ABG Base Excess ABG Hemoglobin Oxyhemoglobin Sodium Potassium Chloride Carbon Dioxide BUN Creatinine Glucose POC Glucose 142 H 143 H 128 H Lactic Acid Calcium Ionized Calcium Phosphorus Magnesium Direct Bilirubin AST ALT Alkaline Phosphatase Lactate Dehydrogenase Troponin T C-Reactive Protein Total Protein Albumin Prealbumin Triglycerides Cholesterol LDL Cholesterol Direct HDL Cholesterol 25-OH Vitamin D Total PTH Intact Urine pH Urine WBC (Auto) Urine Creatinine Urine Total Protein Fluid Total Protein Vancomycin Trough Rheumatoid Factor Complement C4 Miscellaneous Test Crossmatch 11/02/16 11/02/16 11/02/16 04:16 05:29 11:58 WBC RBC Hgb Hct MCV MCH MCHC RDW Plt Count Lymph % (Auto) [place] % (Auto) Lymph # [place] # Baso # Seg Neutrophils % Seg Neuts % (Manual) Lymphocytes % (Manual) Monocytes % (Manual) Eosinophils % (Manual) Basophils % (Manual) Nucleated RBC % Seg Neutrophils # Seg Neutrophils # Man Lymphocytes # (Manual) Monocytes # (Manual) Eosinophils # (Manual) Basophils # (Manual) PT INR Fibrinogen dRVVT Confirm Interp Factor V Activity POC ABG pH POC ABG pCO2 POC ABG pO2 ABG pO2 ABG HCO3 ABG Base Excess ABG Hemoglobin Oxyhemoglobin Sodium Potassium 3.1 L Chloride Carbon Dioxide BUN 73 H Creatinine 2.3 H Glucose 112 H POC Glucose 135 H 149 H Lactic Acid Calcium Ionized Calcium Phosphorus Magnesium Direct Bilirubin AST ALT Alkaline Phosphatase Lactate Dehydrogenase Troponin T C-Reactive Protein Total Protein Albumin Prealbumin Triglycerides Cholesterol LDL Cholesterol Direct HDL Cholesterol 25-OH Vitamin D Total PTH Intact Urine pH Urine WBC (Auto) Urine Creatinine Urine Total Protein Fluid Total Protein Vancomycin Trough Rheumatoid Factor Complement C4 Miscellaneous Test Crossmatch 11/02/16 11/02/16 11/03/16 17:42 22:54 06:00 WBC RBC Hgb Hct MCV MCH MCHC RDW Plt Count Lymph % (Auto) [place] % (Auto) Lymph # [place] # Baso # Seg Neutrophils % Seg Neuts % (Manual) Lymphocytes % (Manual) Monocytes % (Manual) Eosinophils % (Manual) Basophils % (Manual) Nucleated RBC % Seg Neutrophils # Seg Neutrophils # Man Lymphocytes # (Manual) Monocytes # (Manual) Eosinophils # (Manual) Basophils # (Manual) PT INR Fibrinogen dRVVT Confirm Interp Factor V Activity POC ABG pH POC ABG pCO2 POC ABG pO2 ABG pO2 ABG HCO3 ABG Base Excess ABG Hemoglobin Oxyhemoglobin Sodium Potassium Chloride 96.7 L Carbon Dioxide BUN 41 H Creatinine 1.5 H Glucose 145 H POC Glucose 182 H 115 H Lactic Acid Calcium Ionized Calcium Phosphorus 1.60 L D Magnesium 1.50 L Direct Bilirubin AST ALT Alkaline Phosphatase Lactate Dehydrogenase Troponin T C-Reactive Protein Total Protein Albumin Prealbumin Triglycerides Cholesterol LDL Cholesterol Direct HDL Cholesterol 25-OH Vitamin D Total PTH Intact Urine pH Urine WBC (Auto) Urine Creatinine Urine Total Protein Fluid Total Protein Vancomycin Trough Rheumatoid Factor Complement C4 Miscellaneous Test Crossmatch 11/03/16 11/03/16 11/03/16 11:53 17:45 23:37 WBC RBC Hgb Hct MCV MCH MCHC RDW Plt Count Lymph % (Auto) [place] % (Auto) Lymph # [place] # Baso # Seg Neutrophils % Seg Neuts % (Manual) Lymphocytes % (Manual) Monocytes % (Manual) Eosinophils % (Manual) Basophils % (Manual) Nucleated RBC % Seg Neutrophils # Seg Neutrophils # Man Lymphocytes # (Manual) Monocytes # (Manual) Eosinophils # (Manual) Basophils # (Manual) PT INR Fibrinogen dRVVT Confirm Interp Factor V Activity POC ABG pH POC ABG pCO2 POC ABG pO2 ABG pO2 ABG HCO3 ABG Base Excess ABG Hemoglobin Oxyhemoglobin Sodium Potassium Chloride Carbon Dioxide BUN Creatinine Glucose POC Glucose 131 H 134 H 113 H Lactic Acid Calcium Ionized Calcium Phosphorus Magnesium Direct Bilirubin AST ALT Alkaline Phosphatase Lactate Dehydrogenase Troponin T C-Reactive Protein Total Protein Albumin Prealbumin Triglycerides Cholesterol LDL Cholesterol Direct HDL Cholesterol 25-OH Vitamin D Total PTH Intact Urine pH Urine WBC (Auto) Urine Creatinine Urine Total Protein Fluid Total Protein Vancomycin Trough Rheumatoid Factor Complement C4 Miscellaneous Test Crossmatch 11/04/16 11/04/16 11/04/16 05:41 06:00 12:10 WBC RBC Hgb Hct MCV MCH MCHC RDW Plt Count Lymph % (Auto) [place] % (Auto) Lymph # [place] # Baso # Seg Neutrophils % Seg Neuts % (Manual) Lymphocytes % (Manual) Monocytes % (Manual) Eosinophils % (Manual) Basophils % (Manual) Nucleated RBC % Seg Neutrophils # Seg Neutrophils # Man Lymphocytes # (Manual) Monocytes # (Manual) Eosinophils # (Manual) Basophils # (Manual) PT INR Fibrinogen dRVVT Confirm Interp Factor V Activity POC ABG pH POC ABG pCO2 POC ABG pO2 ABG pO2 ABG HCO3 ABG Base Excess ABG Hemoglobin Oxyhemoglobin Sodium Potassium Chloride 96.7 L Carbon Dioxide BUN 52 H Creatinine 1.9 H Glucose 126 H POC Glucose 137 H 191 H Lactic Acid Calcium Ionized Calcium Phosphorus Magnesium Direct Bilirubin AST ALT Alkaline Phosphatase Lactate Dehydrogenase Troponin T C-Reactive Protein Total Protein Albumin Prealbumin Triglycerides Cholesterol LDL Cholesterol Direct HDL Cholesterol 25-OH Vitamin D Total PTH Intact Urine pH Urine WBC (Auto) Urine Creatinine Urine Total Protein Fluid Total Protein Vancomycin Trough Rheumatoid Factor Complement C4 Miscellaneous Test Crossmatch 11/04/16 11/05/16 11/05/16 22:57 03:10 05:10 WBC RBC Hgb Hct MCV MCH MCHC RDW Plt Count Lymph % (Auto) [place] % (Auto) Lymph # [place] # Baso # Seg Neutrophils % Seg Neuts % (Manual) Lymphocytes % (Manual) Monocytes % (Manual) Eosinophils % (Manual) Basophils % (Manual) Nucleated RBC % Seg Neutrophils # Seg Neutrophils # Man Lymphocytes # (Manual) Monocytes # (Manual) Eosinophils # (Manual) Basophils # (Manual) PT INR Fibrinogen dRVVT Confirm Interp Factor V Activity POC ABG pH POC ABG pCO2 POC ABG pO2 ABG pO2 ABG HCO3 ABG Base Excess ABG Hemoglobin Oxyhemoglobin Sodium 136 L Potassium Chloride 97.2 L Carbon Dioxide BUN 32 H Creatinine 1.3 H Glucose 123 H POC Glucose 125 H 108 H Lactic Acid Calcium 7.8 L Ionized Calcium Phosphorus Magnesium Direct Bilirubin AST ALT Alkaline Phosphatase Lactate Dehydrogenase Troponin T C-Reactive Protein Total Protein Albumin Prealbumin Triglycerides Cholesterol LDL Cholesterol Direct HDL Cholesterol 25-OH Vitamin D Total PTH Intact Urine pH Urine WBC (Auto) Urine Creatinine Urine Total Protein Fluid Total Protein Vancomycin Trough Rheumatoid Factor Complement C4 Miscellaneous Test Crossmatch 11/05/16 11/05/16 11/05/16 12:23 13:09 13:25 WBC RBC Hgb Hct MCV MCH MCHC RDW Plt Count Lymph % (Auto) [place] % (Auto) Lymph # [place] # Baso # Seg Neutrophils % Seg Neuts % (Manual) Lymphocytes % (Manual) Monocytes % (Manual) Eosinophils % (Manual) Basophils % (Manual) Nucleated RBC % Seg Neutrophils # Seg Neutrophils # Man Lymphocytes # (Manual) Monocytes # (Manual) Eosinophils # (Manual) Basophils # (Manual) PT INR Fibrinogen dRVVT Confirm Interp Factor V Activity POC ABG pH POC ABG pCO2 POC ABG pO2 ABG pO2 ABG HCO3 ABG Base Excess ABG Hemoglobin Oxyhemoglobin Sodium Potassium Chloride Carbon Dioxide BUN Creatinine Glucose POC Glucose 124 H Lactic Acid Calcium Ionized Calcium Phosphorus Magnesium Direct Bilirubin AST ALT Alkaline Phosphatase Lactate Dehydrogenase Troponin T C-Reactive Protein 11.40 H Total Protein Albumin Prealbumin Triglycerides Cholesterol LDL Cholesterol Direct HDL Cholesterol 25-OH Vitamin D Total PTH Intact Urine pH 9.0 H Urine WBC (Auto) Urine Creatinine Urine Total Protein Fluid Total Protein Vancomycin Trough Rheumatoid Factor Complement C4 Miscellaneous Test Crossmatch 11/05/16 11/05/16 11/05/16 13:25 17:54 23:42 WBC RBC Hgb Hct MCV MCH MCHC RDW Plt Count Lymph % (Auto) [place] % (Auto) Lymph # [place] # Baso # Seg Neutrophils % Seg Neuts % (Manual) Lymphocytes % (Manual) Monocytes % (Manual) Eosinophils % (Manual) Basophils % (Manual) Nucleated RBC % Seg Neutrophils # Seg Neutrophils # Man Lymphocytes # (Manual) Monocytes # (Manual) Eosinophils # (Manual) Basophils # (Manual) PT INR Fibrinogen dRVVT Confirm Interp Factor V Activity POC ABG pH POC ABG pCO2 POC ABG pO2 ABG pO2 ABG HCO3 ABG Base Excess ABG Hemoglobin Oxyhemoglobin Sodium Potassium Chloride Carbon Dioxide BUN Creatinine Glucose POC Glucose 114 H 134 H Lactic Acid Calcium Ionized Calcium Phosphorus Magnesium Direct Bilirubin AST ALT Alkaline Phosphatase Lactate Dehydrogenase Troponin T C-Reactive Protein Total Protein Albumin Prealbumin Triglycerides Cholesterol LDL Cholesterol Direct HDL Cholesterol 25-OH Vitamin D Total PTH Intact Urine pH Urine WBC (Auto) Urine Creatinine Urine Total Protein Fluid Total Protein Vancomycin Trough Rheumatoid Factor Complement C4 Miscellaneous Test Flexitest 1 H Crossmatch 11/06/16 11/06/16 11/06/16 04:56 06:25 06:25 WBC RBC 2.50 L Hgb 7.3 L Hct 22.5 L MCV MCH MCHC RDW 16.9 H Plt Count Lymph % (Auto) [place] % (Auto) 10.5 H Lymph # [place] # 1.1 H Baso # Seg Neutrophils % Seg Neuts % (Manual) Lymphocytes % (Manual) Monocytes % (Manual) Eosinophils % (Manual) Basophils % (Manual) Nucleated RBC % Seg Neutrophils # Seg Neutrophils # Man Lymphocytes # (Manual) Monocytes # (Manual) Eosinophils # (Manual) Basophils # (Manual) PT INR Fibrinogen dRVVT Confirm Interp Factor V Activity POC ABG pH POC ABG pCO2 POC ABG pO2 ABG pO2 ABG HCO3 ABG Base Excess ABG Hemoglobin Oxyhemoglobin Sodium Potassium 5.1 H Chloride 95.9 L Carbon Dioxide BUN 52 H Creatinine 1.8 H Glucose 117 H POC Glucose 120 H Lactic Acid Calcium Ionized Calcium Phosphorus Magnesium Direct Bilirubin AST 103 H ALT 77 H Alkaline Phosphatase 285 H Lactate Dehydrogenase Troponin T C-Reactive Protein Total Protein 6.2 L Albumin 1.8 L Prealbumin 0.180 L Triglycerides Cholesterol LDL Cholesterol Direct HDL Cholesterol 25-OH Vitamin D Total PTH Intact Urine pH Urine WBC (Auto) Urine Creatinine Urine Total Protein Fluid Total Protein Vancomycin Trough Rheumatoid Factor Complement C4 Miscellaneous Test Crossmatch 11/06/16 11/06/16 11/06/16 11:56 17:14 23:52 WBC RBC Hgb Hct MCV MCH MCHC RDW Plt Count Lymph % (Auto) [place] % (Auto) Lymph # [place] # Baso # Seg Neutrophils % Seg Neuts % (Manual) Lymphocytes % (Manual) Monocytes % (Manual) Eosinophils % (Manual) Basophils % (Manual) Nucleated RBC % Seg Neutrophils # Seg Neutrophils # Man Lymphocytes # (Manual) Monocytes # (Manual) Eosinophils # (Manual) Basophils # (Manual) PT INR Fibrinogen dRVVT Confirm Interp Factor V Activity POC ABG pH POC ABG pCO2 POC ABG pO2 ABG pO2 ABG HCO3 ABG Base Excess ABG Hemoglobin Oxyhemoglobin Sodium Potassium Chloride Carbon Dioxide BUN Creatinine Glucose POC Glucose 141 H 125 H 130 H Lactic Acid Calcium Ionized Calcium Phosphorus Magnesium Direct Bilirubin AST ALT Alkaline Phosphatase Lactate Dehydrogenase Troponin T C-Reactive Protein Total Protein Albumin Prealbumin Triglycerides Cholesterol LDL Cholesterol Direct HDL Cholesterol 25-OH Vitamin D Total PTH Intact Urine pH Urine WBC (Auto) Urine Creatinine Urine Total Protein Fluid Total Protein Vancomycin Trough Rheumatoid Factor Complement C4 Miscellaneous Test Crossmatch 11/07/16 11/07/16 11/07/16 06:30 06:30 09:37 WBC RBC 2.18 L Hgb 6.3 L Hct 19.7 L* MCV MCH MCHC RDW 16.8 H Plt Count Lymph % (Auto) [place] % (Auto) 10.0 H Lymph # [place] # 1.0 H Baso # Seg Neutrophils % Seg Neuts % (Manual) Lymphocytes % (Manual) Monocytes % (Manual) Eosinophils % (Manual) Basophils % (Manual) Nucleated RBC % Seg Neutrophils # Seg Neutrophils # Man Lymphocytes # (Manual) Monocytes # (Manual) Eosinophils # (Manual) Basophils # (Manual) PT INR Fibrinogen dRVVT Confirm Interp Factor V Activity POC ABG pH POC ABG pCO2 POC ABG pO2 ABG pO2 ABG HCO3 ABG Base Excess ABG Hemoglobin Oxyhemoglobin Sodium 135 L Potassium Chloride 95.6 L Carbon Dioxide BUN 70 H Creatinine 2.0 H Glucose 126 H POC Glucose Lactic Acid Calcium Ionized Calcium Phosphorus Magnesium Direct Bilirubin AST ALT Alkaline Phosphatase Lactate Dehydrogenase Troponin T C-Reactive Protein Total Protein Albumin Prealbumin Triglycerides Cholesterol LDL Cholesterol Direct HDL Cholesterol 25-OH Vitamin D Total PTH Intact Urine pH Urine WBC (Auto) Urine Creatinine Urine Total Protein Fluid Total Protein Vancomycin Trough Rheumatoid Factor Complement C4 Miscellaneous Test Crossmatch See Detail 11/07/16 11/07/16 11/07/16 12:52 18:51 21:26 WBC RBC Hgb Hct MCV MCH MCHC RDW Plt Count Lymph % (Auto) [place] % (Auto) Lymph # [place] # Baso # Seg Neutrophils % Seg Neuts % (Manual) Lymphocytes % (Manual) Monocytes % (Manual) Eosinophils % (Manual) Basophils % (Manual) Nucleated RBC % Seg Neutrophils # Seg Neutrophils # Man Lymphocytes # (Manual) Monocytes # (Manual) Eosinophils # (Manual) Basophils # (Manual) PT INR Fibrinogen dRVVT Confirm Interp Factor V Activity POC ABG pH 7.523 H POC ABG pCO2 34.6 L POC ABG pO2 53 L ABG pO2 ABG HCO3 ABG Base Excess ABG Hemoglobin Oxyhemoglobin Sodium Potassium Chloride Carbon Dioxide BUN Creatinine Glucose POC Glucose 142 H 155 H Lactic Acid Calcium Ionized Calcium Phosphorus Magnesium Direct Bilirubin AST ALT Alkaline Phosphatase Lactate Dehydrogenase Troponin T C-Reactive Protein Total Protein Albumin Prealbumin Triglycerides Cholesterol LDL Cholesterol Direct HDL Cholesterol 25-OH Vitamin D Total PTH Intact Urine pH Urine WBC (Auto) Urine Creatinine Urine Total Protein Fluid Total Protein Vancomycin Trough Rheumatoid Factor Complement C4 Miscellaneous Test Crossmatch 11/07/16 11/08/16 11/08/16 21:34 13:03 23:37 WBC RBC 2.63 L Hgb 7.7 L Hct 22.7 L MCV MCH MCHC RDW 17.0 H Plt Count Lymph % (Auto) [place] % (Auto) Lymph # [place] # Baso # Seg Neutrophils % Seg Neuts % (Manual) Lymphocytes % (Manual) Monocytes % (Manual) Eosinophils % (Manual) Basophils % (Manual) Nucleated RBC % Seg Neutrophils # Seg Neutrophils # Man Lymphocytes # (Manual) Monocytes # (Manual) Eosinophils # (Manual) Basophils # (Manual) PT INR Fibrinogen dRVVT Confirm Interp Factor V Activity POC ABG pH 7.478 H POC ABG pCO2 34.0 L POC ABG pO2 50 L ABG pO2 ABG HCO3 ABG Base Excess ABG Hemoglobin Oxyhemoglobin Sodium Potassium Chloride Carbon Dioxide BUN Creatinine Glucose POC Glucose 113 H Lactic Acid Calcium Ionized Calcium Phosphorus Magnesium Direct Bilirubin AST ALT Alkaline Phosphatase Lactate Dehydrogenase Troponin T C-Reactive Protein Total Protein Albumin Prealbumin Triglycerides Cholesterol LDL Cholesterol Direct HDL Cholesterol 25-OH Vitamin D Total PTH Intact Urine pH Urine WBC (Auto) Urine Creatinine Urine Total Protein Fluid Total Protein Vancomycin Trough Rheumatoid Factor Complement C4 Miscellaneous Test Crossmatch 11/09/16 11/09/16 11/09/16 04:35 10:15 18:21 WBC RBC 2.68 L Hgb 7.8 L Hct 23.3 L MCV MCH MCHC RDW 17.0 H Plt Count Lymph % (Auto) [place] % (Auto) 12.1 H Lymph # [place] # 1.1 H Baso # Seg Neutrophils % Seg Neuts % (Manual) Lymphocytes % (Manual) Monocytes % (Manual) Eosinophils % (Manual) Basophils % (Manual) Nucleated RBC % Seg Neutrophils # Seg Neutrophils # Man Lymphocytes # (Manual) Monocytes # (Manual) Eosinophils # (Manual) Basophils # (Manual) PT INR Fibrinogen dRVVT Confirm Interp Factor V Activity POC ABG pH POC ABG pCO2 POC ABG pO2 ABG pO2 ABG HCO3 ABG Base Excess ABG Hemoglobin Oxyhemoglobin Sodium Potassium Chloride Carbon Dioxide BUN 51 H Creatinine 1.8 H Glucose POC Glucose 60 L Lactic Acid Calcium 8.3 L Ionized Calcium Phosphorus Magnesium Direct Bilirubin AST ALT Alkaline Phosphatase Lactate Dehydrogenase Troponin T C-Reactive Protein Total Protein Albumin Prealbumin Triglycerides Cholesterol LDL Cholesterol Direct HDL Cholesterol 25-OH Vitamin D Total PTH Intact Urine pH Urine WBC (Auto) Urine Creatinine Urine Total Protein Fluid Total Protein Vancomycin Trough Rheumatoid Factor Complement C4 Miscellaneous Test Crossmatch 11/09/16 11/10/16 11/10/16 18:55 07:00 11:51 WBC RBC Hgb Hct MCV MCH MCHC RDW Plt Count Lymph % (Auto) [place] % (Auto) Lymph # [place] # Baso # Seg Neutrophils % Seg Neuts % (Manual) Lymphocytes % (Manual) Monocytes % (Manual) Eosinophils % (Manual) Basophils % (Manual) Nucleated RBC % Seg Neutrophils # Seg Neutrophils # Man Lymphocytes # (Manual) Monocytes # (Manual) Eosinophils # (Manual) Basophils # (Manual) PT INR Fibrinogen dRVVT Confirm Interp Factor V Activity POC ABG pH POC ABG pCO2 POC ABG pO2 ABG pO2 ABG HCO3 ABG Base Excess ABG Hemoglobin Oxyhemoglobin Sodium Potassium 3.0 L D Chloride 97.4 L Carbon Dioxide BUN 28 H Creatinine 1.3 H Glucose POC Glucose 68 L 120 H Lactic Acid Calcium 7.8 L Ionized Calcium Phosphorus Magnesium Direct Bilirubin AST ALT Alkaline Phosphatase Lactate Dehydrogenase Troponin T C-Reactive Protein Total Protein Albumin Prealbumin Triglycerides Cholesterol LDL Cholesterol Direct HDL Cholesterol 25-OH Vitamin D Total PTH Intact Urine pH Urine WBC (Auto) Urine Creatinine Urine Total Protein Fluid Total Protein Vancomycin Trough Rheumatoid Factor Complement C4 Miscellaneous Test Crossmatch 11/10/16 11/11/16 11/11/16 14:20 06:59 06:59 WBC RBC 2.81 L Hgb 8.1 L Hct 24.4 L MCV MCH MCHC RDW 16.4 H Plt Count Lymph % (Auto) [place] % (Auto) 10.8 H Lymph # [place] # 1.0 H Baso # Seg Neutrophils % Seg Neuts % (Manual) Lymphocytes % (Manual) Monocytes % (Manual) Eosinophils % (Manual) Basophils % (Manual) Nucleated RBC % Seg Neutrophils # Seg Neutrophils # Man Lymphocytes # (Manual) Monocytes # (Manual) Eosinophils # (Manual) Basophils # (Manual) PT INR Fibrinogen dRVVT Confirm Interp Factor V Activity POC ABG pH POC ABG pCO2 POC ABG pO2 ABG pO2 ABG HCO3 ABG Base Excess ABG Hemoglobin Oxyhemoglobin Sodium Potassium Chloride Carbon Dioxide BUN Creatinine Glucose POC Glucose Lactic Acid Calcium Ionized Calcium Phosphorus Magnesium Direct Bilirubin AST ALT Alkaline Phosphatase Lactate Dehydrogenase 196 H Troponin T C-Reactive Protein Total Protein 6.1 L Albumin Prealbumin Triglycerides Cholesterol LDL Cholesterol Direct HDL Cholesterol 25-OH Vitamin D Total PTH Intact Urine pH Urine WBC (Auto) Urine Creatinine Urine Total Protein Fluid Total Protein < 3.0 L Vancomycin Trough Rheumatoid Factor Complement C4 Miscellaneous Test Crossmatch 11/11/16 11/11/16 11/12/16 06:59 09:50 04:00 WBC RBC Hgb Hct MCV MCH MCHC RDW Plt Count Lymph % (Auto) [place] % (Auto) Lymph # [place] # Baso # Seg Neutrophils % Seg Neuts % (Manual) Lymphocytes % (Manual) Monocytes % (Manual) Eosinophils % (Manual) Basophils % (Manual) Nucleated RBC % Seg Neutrophils # Seg Neutrophils # Man Lymphocytes # (Manual) Monocytes # (Manual) Eosinophils # (Manual) Basophils # (Manual) PT INR 1.18 H Fibrinogen dRVVT Confirm Interp Factor V Activity POC ABG pH POC ABG pCO2 POC ABG pO2 ABG pO2 ABG HCO3 ABG Base Excess ABG Hemoglobin Oxyhemoglobin Sodium 136 L 133 L Potassium Chloride 96.1 L 94.8 L Carbon Dioxide 21 L BUN 37 H 42 H Creatinine 1.8 H 2.0 H Glucose POC Glucose Lactic Acid Calcium Ionized Calcium Phosphorus Magnesium Direct Bilirubin AST ALT Alkaline Phosphatase Lactate Dehydrogenase Troponin T C-Reactive Protein Total Protein Albumin Prealbumin Triglycerides Cholesterol LDL Cholesterol Direct HDL Cholesterol 25-OH Vitamin D Total PTH Intact Urine pH Urine WBC (Auto) Urine Creatinine Urine Total Protein Fluid Total Protein Vancomycin Trough Rheumatoid Factor Complement C4 Miscellaneous Test Crossmatch 11/12/16 11/12/16 11/13/16 04:00 23:55 05:53 WBC RBC Hgb 8.9 L Hct 27.2 L MCV MCH MCHC RDW Plt Count Lymph % (Auto) [place] % (Auto) Lymph # [place] # Baso # Seg Neutrophils % Seg Neuts % (Manual) Lymphocytes % (Manual) Monocytes % (Manual) Eosinophils % (Manual) Basophils % (Manual) Nucleated RBC % Seg Neutrophils # Seg Neutrophils # Man Lymphocytes # (Manual) Monocytes # (Manual) Eosinophils # (Manual) Basophils # (Manual) PT INR Fibrinogen dRVVT Confirm Interp Factor V Activity POC ABG pH POC ABG pCO2 POC ABG pO2 ABG pO2 ABG HCO3 ABG Base Excess ABG Hemoglobin Oxyhemoglobin Sodium Potassium Chloride Carbon Dioxide BUN Creatinine Glucose POC Glucose 132 H 120 H Lactic Acid Calcium Ionized Calcium Phosphorus Magnesium Direct Bilirubin AST ALT Alkaline Phosphatase Lactate Dehydrogenase Troponin T C-Reactive Protein Total Protein Albumin Prealbumin Triglycerides Cholesterol LDL Cholesterol Direct HDL Cholesterol 25-OH Vitamin D Total PTH Intact Urine pH Urine WBC (Auto) Urine Creatinine Urine Total Protein Fluid Total Protein Vancomycin Trough Rheumatoid Factor Complement C4 Miscellaneous Test Crossmatch 11/13/16 11/13/16 11/13/16 11:43 17:09 23:41 WBC RBC Hgb Hct MCV MCH MCHC RDW Plt Count Lymph % (Auto) [place] % (Auto) Lymph # [place] # Baso # Seg Neutrophils % Seg Neuts % (Manual) Lymphocytes % (Manual) Monocytes % (Manual) Eosinophils % (Manual) Basophils % (Manual) Nucleated RBC % Seg Neutrophils # Seg Neutrophils # Man Lymphocytes # (Manual) Monocytes # (Manual) Eosinophils # (Manual) Basophils # (Manual) PT INR Fibrinogen dRVVT Confirm Interp Factor V Activity POC ABG pH POC ABG pCO2 POC ABG pO2 ABG pO2 ABG HCO3 ABG Base Excess ABG Hemoglobin Oxyhemoglobin Sodium Potassium Chloride Carbon Dioxide BUN Creatinine Glucose POC Glucose 114 H 113 H 108 H Lactic Acid Calcium Ionized Calcium Phosphorus Magnesium Direct Bilirubin AST ALT Alkaline Phosphatase Lactate Dehydrogenase Troponin T C-Reactive Protein Total Protein Albumin Prealbumin Triglycerides Cholesterol LDL Cholesterol Direct HDL Cholesterol 25-OH Vitamin D Total PTH Intact Urine pH Urine WBC (Auto) Urine Creatinine Urine Total Protein Fluid Total Protein Vancomycin Trough Rheumatoid Factor Complement C4 Miscellaneous Test Crossmatch 11/13/16 11/15/16 11/15/16 Unknown 00:37 03:30 WBC 11.2 H RBC 2.72 L Hgb 7.6 L Hct 23.4 L MCV MCH MCHC RDW 16.5 H Plt Count Lymph % (Auto) [place] % (Auto) Lymph # [place] # Baso # Seg Neutrophils % Seg Neuts % (Manual) Lymphocytes % (Manual) Monocytes % (Manual) Eosinophils % (Manual) Basophils % (Manual) Nucleated RBC % Seg Neutrophils # Seg Neutrophils # Man Lymphocytes # (Manual) Monocytes # (Manual) Eosinophils # (Manual) Basophils # (Manual) PT INR Fibrinogen dRVVT Confirm Interp Factor V Activity POC ABG pH POC ABG pCO2 POC ABG pO2 ABG pO2 ABG HCO3 ABG Base Excess ABG Hemoglobin Oxyhemoglobin Sodium 135 L Potassium Chloride 95.2 L Carbon Dioxide BUN 52 H Creatinine 2.2 H Glucose POC Glucose 108 H Lactic Acid Calcium Ionized Calcium Phosphorus Magnesium Direct Bilirubin AST ALT Alkaline Phosphatase Lactate Dehydrogenase Troponin T C-Reactive Protein Total Protein Albumin Prealbumin Triglycerides Cholesterol LDL Cholesterol Direct HDL Cholesterol 25-OH Vitamin D Total PTH Intact Urine pH Urine WBC (Auto) Urine Creatinine Urine Total Protein Fluid Total Protein Vancomycin Trough Rheumatoid Factor Complement C4 Miscellaneous Test Crossmatch 11/15/16 11/15/16 11/15/16 03:30 05:04 11:50 WBC RBC Hgb Hct MCV MCH MCHC RDW Plt Count Lymph % (Auto) [place] % (Auto) Lymph # [place] # Baso # Seg Neutrophils % Seg Neuts % (Manual) Lymphocytes % (Manual) Monocytes % (Manual) Eosinophils % (Manual) Basophils % (Manual) Nucleated RBC % Seg Neutrophils # Seg Neutrophils # Man Lymphocytes # (Manual) Monocytes # (Manual) Eosinophils # (Manual) Basophils # (Manual) PT INR Fibrinogen dRVVT Confirm Interp Factor V Activity POC ABG pH POC ABG pCO2 POC ABG pO2 ABG pO2 ABG HCO3 ABG Base Excess ABG Hemoglobin Oxyhemoglobin Sodium Potassium 3.4 L Chloride Carbon Dioxide BUN 25 H Creatinine 1.5 H Glucose 103 H POC Glucose 121 H 144 H Lactic Acid Calcium Ionized Calcium Phosphorus Magnesium Direct Bilirubin AST ALT Alkaline Phosphatase Lactate Dehydrogenase Troponin T C-Reactive Protein Total Protein Albumin Prealbumin Triglycerides Cholesterol LDL Cholesterol Direct HDL Cholesterol 25-OH Vitamin D Total PTH Intact Urine pH Urine WBC (Auto) Urine Creatinine Urine Total Protein Fluid Total Protein Vancomycin Trough Rheumatoid Factor Complement C4 Miscellaneous Test Crossmatch 11/15/16 11/15/16 11/16/16 21:28 23:20 11:44 WBC RBC Hgb Hct MCV MCH MCHC RDW Plt Count Lymph % (Auto) [place] % (Auto) Lymph # [place] # Baso # Seg Neutrophils % Seg Neuts % (Manual) Lymphocytes % (Manual) Monocytes % (Manual) Eosinophils % (Manual) Basophils % (Manual) Nucleated RBC % Seg Neutrophils # Seg Neutrophils # Man Lymphocytes # (Manual) Monocytes # (Manual) Eosinophils # (Manual) Basophils # (Manual) PT INR Fibrinogen dRVVT Confirm Interp Factor V Activity POC ABG pH 7.462 H POC ABG pCO2 POC ABG pO2 71 L ABG pO2 ABG HCO3 ABG Base Excess ABG Hemoglobin Oxyhemoglobin Sodium Potassium Chloride Carbon Dioxide BUN Creatinine Glucose POC Glucose 116 H 133 H Lactic Acid Calcium Ionized Calcium Phosphorus Magnesium Direct Bilirubin AST ALT Alkaline Phosphatase Lactate Dehydrogenase Troponin T C-Reactive Protein Total Protein Albumin Prealbumin Triglycerides Cholesterol LDL Cholesterol Direct HDL Cholesterol 25-OH Vitamin D Total PTH Intact Urine pH Urine WBC (Auto) Urine Creatinine Urine Total Protein Fluid Total Protein Vancomycin Trough Rheumatoid Factor Complement C4 Miscellaneous Test Crossmatch 11/16/16 11/16/16 11/16/16 12:20 17:05 23:35 WBC 11.7 H RBC 2.73 L Hgb 7.6 L Hct 23.7 L MCV MCH MCHC RDW 16.6 H Plt Count Lymph % (Auto) [place] % (Auto) Lymph # [place] # Baso # Seg Neutrophils % Seg Neuts % (Manual) Lymphocytes % (Manual) Monocytes % (Manual) Eosinophils % (Manual) Basophils % (Manual) Nucleated RBC % Seg Neutrophils # Seg Neutrophils # Man Lymphocytes # (Manual) Monocytes # (Manual) Eosinophils # (Manual) Basophils # (Manual) PT INR Fibrinogen dRVVT Confirm Interp Factor V Activity POC ABG pH POC ABG pCO2 POC ABG pO2 ABG pO2 ABG HCO3 ABG Base Excess ABG Hemoglobin Oxyhemoglobin Sodium Potassium Chloride Carbon Dioxide BUN Creatinine Glucose POC Glucose 154 H 125 H Lactic Acid Calcium Ionized Calcium Phosphorus Magnesium Direct Bilirubin AST ALT Alkaline Phosphatase Lactate Dehydrogenase Troponin T C-Reactive Protein Total Protein Albumin Prealbumin Triglycerides Cholesterol LDL Cholesterol Direct HDL Cholesterol 25-OH Vitamin D Total PTH Intact Urine pH Urine WBC (Auto) Urine Creatinine Urine Total Protein Fluid Total Protein Vancomycin Trough Rheumatoid Factor Complement C4 Miscellaneous Test Crossmatch 11/17/16 11/17/16 11/17/16 03:20 03:20 03:20 WBC RBC 2.55 L Hgb 7.3 L Hct 21.9 L MCV MCH MCHC RDW 16.6 H Plt Count Lymph % (Auto) [place] % (Auto) 11.5 H Lymph # [place] # 1.1 H Baso # Seg Neutrophils % Seg Neuts % (Manual) Lymphocytes % (Manual) Monocytes % (Manual) Eosinophils % (Manual) Basophils % (Manual) Nucleated RBC % Seg Neutrophils # Seg Neutrophils # Man Lymphocytes # (Manual) Monocytes # (Manual) Eosinophils # (Manual) Basophils # (Manual) PT 16.8 H INR 1.37 H Fibrinogen dRVVT Confirm Interp Factor V Activity POC ABG pH POC ABG pCO2 POC ABG pO2 ABG pO2 ABG HCO3 ABG Base Excess ABG Hemoglobin Oxyhemoglobin Sodium Potassium 3.5 L Chloride Carbon Dioxide BUN 21 H Creatinine Glucose POC Glucose Lactic Acid Calcium 7.9 L Ionized Calcium Phosphorus Magnesium Direct Bilirubin AST ALT Alkaline Phosphatase Lactate Dehydrogenase Troponin T C-Reactive Protein Total Protein Albumin Prealbumin Triglycerides Cholesterol LDL Cholesterol Direct HDL Cholesterol 25-OH Vitamin D Total PTH Intact Urine pH Urine WBC (Auto) Urine Creatinine Urine Total Protein Fluid Total Protein Vancomycin Trough Rheumatoid Factor Complement C4 Miscellaneous Test Crossmatch 11/17/16 11/17/16 11/17/16 06:34 11:21 21:22 WBC RBC Hgb Hct MCV MCH MCHC RDW Plt Count Lymph % (Auto) [place] % (Auto) Lymph # [place] # Baso # Seg Neutrophils % Seg Neuts % (Manual) Lymphocytes % (Manual) Monocytes % (Manual) Eosinophils % (Manual) Basophils % (Manual) Nucleated RBC % Seg Neutrophils # Seg Neutrophils # Man Lymphocytes # (Manual) Monocytes # (Manual) Eosinophils # (Manual) Basophils # (Manual) PT INR Fibrinogen dRVVT Confirm Interp Factor V Activity POC ABG pH 7.467 H POC ABG pCO2 POC ABG pO2 73 L ABG pO2 ABG HCO3 ABG Base Excess ABG Hemoglobin Oxyhemoglobin Sodium Potassium Chloride Carbon Dioxide BUN Creatinine Glucose POC Glucose 121 H 119 H Lactic Acid Calcium Ionized Calcium Phosphorus Magnesium Direct Bilirubin AST ALT Alkaline Phosphatase Lactate Dehydrogenase Troponin T C-Reactive Protein Total Protein Albumin Prealbumin Triglycerides Cholesterol LDL Cholesterol Direct HDL Cholesterol 25-OH Vitamin D Total PTH Intact Urine pH Urine WBC (Auto) Urine Creatinine Urine Total Protein Fluid Total Protein Vancomycin Trough Rheumatoid Factor Complement C4 Miscellaneous Test Crossmatch 11/18/16 11/18/16 11/19/16 12:16 17:19 00:00 WBC RBC Hgb Hct MCV MCH MCHC RDW Plt Count Lymph % (Auto) [place] % (Auto) Lymph # [place] # Baso # Seg Neutrophils % Seg Neuts % (Manual) Lymphocytes % (Manual) Monocytes % (Manual) Eosinophils % (Manual) Basophils % (Manual) Nucleated RBC % Seg Neutrophils # Seg Neutrophils # Man Lymphocytes # (Manual) Monocytes # (Manual) Eosinophils # (Manual) Basophils # (Manual) PT INR Fibrinogen dRVVT Confirm Interp Factor V Activity POC ABG pH POC ABG pCO2 POC ABG pO2 ABG pO2 ABG HCO3 ABG Base Excess ABG Hemoglobin Oxyhemoglobin Sodium Potassium Chloride Carbon Dioxide BUN Creatinine Glucose POC Glucose 124 H 162 H 139 H Lactic Acid Calcium Ionized Calcium Phosphorus Magnesium Direct Bilirubin AST ALT Alkaline Phosphatase Lactate Dehydrogenase Troponin T C-Reactive Protein Total Protein Albumin Prealbumin Triglycerides Cholesterol LDL Cholesterol Direct HDL Cholesterol 25-OH Vitamin D Total PTH Intact Urine pH Urine WBC (Auto) Urine Creatinine Urine Total Protein Fluid Total Protein Vancomycin Trough Rheumatoid Factor Complement C4 Miscellaneous Test Crossmatch 11/19/16 11/19/16 11/20/16 05:00 12:43 00:40 WBC RBC Hgb Hct MCV MCH MCHC RDW Plt Count Lymph % (Auto) [place] % (Auto) Lymph # [place] # Baso # Seg Neutrophils % Seg Neuts % (Manual) Lymphocytes % (Manual) Monocytes % (Manual) Eosinophils % (Manual) Basophils % (Manual) Nucleated RBC % Seg Neutrophils # Seg Neutrophils # Man Lymphocytes # (Manual) Monocytes # (Manual) Eosinophils # (Manual) Basophils # (Manual) PT INR Fibrinogen dRVVT Confirm Interp Factor V Activity POC ABG pH POC ABG pCO2 POC ABG pO2 ABG pO2 ABG HCO3 ABG Base Excess ABG Hemoglobin Oxyhemoglobin Sodium Potassium Chloride Carbon Dioxide BUN Creatinine Glucose POC Glucose 110 H 125 H 136 H Lactic Acid Calcium Ionized Calcium Phosphorus Magnesium Direct Bilirubin AST ALT Alkaline Phosphatase Lactate Dehydrogenase Troponin T C-Reactive Protein Total Protein Albumin Prealbumin Triglycerides Cholesterol LDL Cholesterol Direct HDL Cholesterol 25-OH Vitamin D Total PTH Intact Urine pH Urine WBC (Auto) Urine Creatinine Urine Total Protein Fluid Total Protein Vancomycin Trough Rheumatoid Factor Complement C4 Miscellaneous Test Crossmatch 11/20/16 11/20/16 11/20/16 05:00 05:00 05:51 WBC 13.1 H RBC 2.74 L Hgb 7.7 L Hct 23.6 L MCV MCH MCHC RDW 16.9 H Plt Count Lymph % (Auto) [place] % (Auto) 10.8 H Lymph # [place] # 1.4 H Baso # Seg Neutrophils % Seg Neuts % (Manual) Lymphocytes % (Manual) Monocytes % (Manual) Eosinophils % (Manual) Basophils % (Manual) Nucleated RBC % Seg Neutrophils # 7.9 H Seg Neutrophils # Man Lymphocytes # (Manual) Monocytes # (Manual) Eosinophils # (Manual) Basophils # (Manual) PT INR Fibrinogen dRVVT Confirm Interp Factor V Activity POC ABG pH POC ABG pCO2 POC ABG pO2 ABG pO2 ABG HCO3 ABG Base Excess ABG Hemoglobin Oxyhemoglobin Sodium Potassium Chloride Carbon Dioxide BUN 31 H Creatinine 1.8 H Glucose 129 H POC Glucose 133 H Lactic Acid Calcium Ionized Calcium Phosphorus Magnesium Direct Bilirubin AST ALT Alkaline Phosphatase Lactate Dehydrogenase Troponin T C-Reactive Protein Total Protein Albumin Prealbumin Triglycerides Cholesterol LDL Cholesterol Direct HDL Cholesterol 25-OH Vitamin D Total PTH Intact Urine pH Urine WBC (Auto) Urine Creatinine Urine Total Protein Fluid Total Protein Vancomycin Trough Rheumatoid Factor Complement C4 Miscellaneous Test Crossmatch 1011/20/16 11/21/16 12:40 18:10 01:20 WBC RBC Hgb Hct MCV MCH MCHC RDW Plt Count Lymph % (Auto) [place] % (Auto) Lymph # [place] # Baso # Seg Neutrophils % Seg Neuts % (Manual) Lymphocytes % (Manual) Monocytes % (Manual) Eosinophils % (Manual) Basophils % (Manual) Nucleated RBC % Seg Neutrophils # Seg Neutrophils # Man Lymphocytes # (Manual) Monocytes # (Manual) Eosinophils # (Manual) Basophils # (Manual) PT INR Fibrinogen dRVVT Confirm Interp Factor V Activity POC ABG pH POC ABG pCO2 POC ABG pO2 ABG pO2 ABG HCO3 ABG Base Excess ABG Hemoglobin Oxyhemoglobin Sodium Potassium Chloride Carbon Dioxide BUN Creatinine Glucose POC Glucose 134 H 138 H 136 H Lactic Acid Calcium Ionized Calcium Phosphorus Magnesium Direct Bilirubin AST ALT Alkaline Phosphatase Lactate Dehydrogenase Troponin T C-Reactive Protein Total Protein Albumin Prealbumin Triglycerides Cholesterol LDL Cholesterol Direct HDL Cholesterol 25-OH Vitamin D Total PTH Intact Urine pH Urine WBC (Auto) Urine Creatinine Urine Total Protein Fluid Total Protein Vancomycin Trough Rheumatoid Factor Complement C4 Miscellaneous Test Crossmatch 11/21/16 11/21/16 11/21/16 07:04 07:45 07:45 WBC 22.0 H RBC 2.91 L Hgb 8.2 L Hct 25.4 L MCV MCH MCHC RDW 17.1 H Plt Count Lymph % (Auto) [place] % (Auto) Lymph # [place] # Baso # Seg Neutrophils % Seg Neuts % (Manual) Lymphocytes % (Manual) 8.0 L Monocytes % (Manual) Eosinophils % (Manual) Basophils % (Manual) Nucleated RBC % Seg Neutrophils # Seg Neutrophils # Man 14.7 H Lymphocytes # (Manual) Monocytes # (Manual) 1.1 H Eosinophils # (Manual) Basophils # (Manual) PT INR Fibrinogen dRVVT Confirm Interp Factor V Activity POC ABG pH POC ABG pCO2 POC ABG pO2 ABG pO2 ABG HCO3 ABG Base Excess ABG Hemoglobin Oxyhemoglobin Sodium Potassium Chloride Carbon Dioxide BUN 42 H Creatinine 2.0 H Glucose POC Glucose 108 H Lactic Acid Calcium Ionized Calcium Phosphorus Magnesium Direct Bilirubin AST ALT Alkaline Phosphatase Lactate Dehydrogenase Troponin T C-Reactive Protein Total Protein Albumin Prealbumin Triglycerides Cholesterol LDL Cholesterol Direct HDL Cholesterol 25-OH Vitamin D Total PTH Intact Urine pH Urine WBC (Auto) Urine Creatinine Urine Total Protein Fluid Total Protein Vancomycin Trough Rheumatoid Factor Complement C4 Miscellaneous Test Crossmatch 11/21/16 11/21/16 11/21/16 08:38 10:09 11:20 WBC RBC Hgb Hct MCV MCH MCHC RDW Plt Count Lymph % (Auto) [place] % (Auto) Lymph # [place] # Baso # Seg Neutrophils % Seg Neuts % (Manual) Lymphocytes % (Manual) Monocytes % (Manual) Eosinophils % (Manual) Basophils % (Manual) Nucleated RBC % Seg Neutrophils # Seg Neutrophils # Man Lymphocytes # (Manual) Monocytes # (Manual) Eosinophils # (Manual) Basophils # (Manual) PT INR Fibrinogen dRVVT Confirm Interp Factor V Activity POC ABG pH 7.346 L POC ABG pCO2 34.4 L POC ABG pO2 314 H ABG pO2 ABG HCO3 ABG Base Excess ABG Hemoglobin Oxyhemoglobin Sodium Potassium Chloride Carbon Dioxide BUN Creatinine Glucose POC Glucose 195 H 153 H Lactic Acid Calcium Ionized Calcium Phosphorus Magnesium Direct Bilirubin AST ALT Alkaline Phosphatase Lactate Dehydrogenase Troponin T C-Reactive Protein Total Protein Albumin Prealbumin Triglycerides Cholesterol LDL Cholesterol Direct HDL Cholesterol 25-OH Vitamin D Total PTH Intact Urine pH Urine WBC (Auto) Urine Creatinine Urine Total Protein Fluid Total Protein Vancomycin Trough Rheumatoid Factor Complement C4 Miscellaneous Test Crossmatch 11/21/16 11/22/16 11/22/16 23:37 04:48 05:00 WBC 29.7 H RBC 2.73 L Hgb 7.5 L Hct 24.2 L MCV MCH 27 L MCHC RDW 17.4 H Plt Count Lymph % (Auto) [place] % (Auto) Lymph # [place] # Baso # Seg Neutrophils % Seg Neuts % (Manual) Lymphocytes % (Manual) 7.0 L Monocytes % (Manual) Eosinophils % (Manual) Basophils % (Manual) Nucleated RBC % Seg Neutrophils # Seg Neutrophils # Man 15.4 H Lymphocytes # (Manual) Monocytes # (Manual) Eosinophils # (Manual) Basophils # (Manual) PT INR Fibrinogen dRVVT Confirm Interp Factor V Activity POC ABG pH POC ABG pCO2 24.6 L POC ABG pO2 189 H ABG pO2 ABG HCO3 ABG Base Excess ABG Hemoglobin Oxyhemoglobin Sodium Potassium Chloride Carbon Dioxide BUN Creatinine Glucose POC Glucose 65 L Lactic Acid Calcium Ionized Calcium Phosphorus Magnesium Direct Bilirubin AST ALT Alkaline Phosphatase Lactate Dehydrogenase Troponin T C-Reactive Protein Total Protein Albumin Prealbumin Triglycerides Cholesterol LDL Cholesterol Direct HDL Cholesterol 25-OH Vitamin D Total PTH Intact Urine pH Urine WBC (Auto) Urine Creatinine Urine Total Protein Fluid Total Protein Vancomycin Trough Rheumatoid Factor Complement C4 Miscellaneous Test Crossmatch 11/22/16 11/23/16 11/23/16 05:00 03:44 04:06 WBC RBC 2.52 L Hgb 7.2 L Hct 21.5 L MCV MCH MCHC RDW 17.1 H Plt Count Lymph % (Auto) [place] % (Auto) 12.4 H Lymph # [place] # 1.4 H Baso # Seg Neutrophils % Seg Neuts % (Manual) Lymphocytes % (Manual) Monocytes % (Manual) Eosinophils % (Manual) Basophils % (Manual) Nucleated RBC % Seg Neutrophils # Seg Neutrophils # Man Lymphocytes # (Manual) Monocytes # (Manual) Eosinophils # (Manual) Basophils # (Manual) PT INR Fibrinogen dRVVT Confirm Interp Factor V Activity POC ABG pH 7.493 H POC ABG pCO2 29.5 L POC ABG pO2 49 L ABG pO2 ABG HCO3 ABG Base Excess ABG Hemoglobin Oxyhemoglobin Sodium 134 L Potassium Chloride 95.9 L Carbon Dioxide 14 L D BUN 51 H Creatinine 2.6 H Glucose POC Glucose Lactic Acid Calcium Ionized Calcium Phosphorus Magnesium Direct Bilirubin AST ALT Alkaline Phosphatase Lactate Dehydrogenase Troponin T C-Reactive Protein Total Protein Albumin Prealbumin Triglycerides Cholesterol LDL Cholesterol Direct HDL Cholesterol 25-OH Vitamin D Total PTH Intact Urine pH Urine WBC (Auto) Urine Creatinine Urine Total Protein Fluid Total Protein Vancomycin Trough Rheumatoid Factor Complement C4 Miscellaneous Test Crossmatch 11/23/16 11/23/16 11/24/16 04:06 11:29 06:39 WBC RBC Hgb Hct MCV MCH MCHC RDW Plt Count Lymph % (Auto) [place] % (Auto) Lymph # [place] # Baso # Seg Neutrophils % Seg Neuts % (Manual) Lymphocytes % (Manual) Monocytes % (Manual) Eosinophils % (Manual) Basophils % (Manual) Nucleated RBC % Seg Neutrophils # Seg Neutrophils # Man Lymphocytes # (Manual) Monocytes # (Manual) Eosinophils # (Manual) Basophils # (Manual) PT INR Fibrinogen dRVVT Confirm Interp Factor V Activity POC ABG pH POC ABG pCO2 POC ABG pO2 ABG pO2 ABG HCO3 ABG Base Excess ABG Hemoglobin Oxyhemoglobin Sodium 136 L Potassium Chloride 95.2 L Carbon Dioxide BUN 60 H Creatinine 2.9 H Glucose POC Glucose 69 L 305 H Lactic Acid Calcium Ionized Calcium Phosphorus Magnesium 1.60 L Direct Bilirubin AST ALT Alkaline Phosphatase Lactate Dehydrogenase Troponin T C-Reactive Protein Total Protein Albumin Prealbumin Triglycerides Cholesterol LDL Cholesterol Direct HDL Cholesterol 25-OH Vitamin D Total PTH Intact Urine pH Urine WBC (Auto) Urine Creatinine Urine Total Protein Fluid Total Protein Vancomycin Trough Rheumatoid Factor Complement C4 Miscellaneous Test Crossmatch 11/24/16 11/24/16 11/24/16 06:43 08:08 08:08 WBC 11.2 H RBC 2.47 L Hgb 6.8 L Hct 20.6 L MCV MCH MCHC RDW 17.0 H Plt Count Lymph % (Auto) [place] % (Auto) 10.3 H Lymph # [place] # 1.2 H Baso # Seg Neutrophils % Seg Neuts % (Manual) Lymphocytes % (Manual) Monocytes % (Manual) Eosinophils % (Manual) Basophils % (Manual) Nucleated RBC % Seg Neutrophils # Seg Neutrophils # Man Lymphocytes # (Manual) Monocytes # (Manual) Eosinophils # (Manual) Basophils # (Manual) PT INR Fibrinogen dRVVT Confirm Interp Factor V Activity POC ABG pH POC ABG pCO2 POC ABG pO2 ABG pO2 ABG HCO3 ABG Base Excess ABG Hemoglobin Oxyhemoglobin Sodium 135 L Potassium Chloride 96.3 L Carbon Dioxide BUN 61 H Creatinine 3.1 H Glucose POC Glucose 62 L Lactic Acid Calcium 8.2 L Ionized Calcium Phosphorus Magnesium Direct Bilirubin AST ALT Alkaline Phosphatase Lactate Dehydrogenase Troponin T C-Reactive Protein Total Protein Albumin Prealbumin Triglycerides Cholesterol LDL Cholesterol Direct HDL Cholesterol 25-OH Vitamin D Total PTH Intact Urine pH Urine WBC (Auto) Urine Creatinine Urine Total Protein Fluid Total Protein Vancomycin Trough Rheumatoid Factor Complement C4 Miscellaneous Test Crossmatch 11/24/16 11/24/16 11/24/16 08:34 11:20 12:41 WBC RBC Hgb Hct MCV MCH MCHC RDW Plt Count Lymph % (Auto) [place] % (Auto) Lymph # [place] # Baso # Seg Neutrophils % Seg Neuts % (Manual) Lymphocytes % (Manual) Monocytes % (Manual) Eosinophils % (Manual) Basophils % (Manual) Nucleated RBC % Seg Neutrophils # Seg Neutrophils # Man Lymphocytes # (Manual) Monocytes # (Manual) Eosinophils # (Manual) Basophils # (Manual) PT INR Fibrinogen dRVVT Confirm Interp Factor V Activity POC ABG pH POC ABG pCO2 POC ABG pO2 ABG pO2 ABG HCO3 ABG Base Excess ABG Hemoglobin Oxyhemoglobin Sodium Potassium Chloride Carbon Dioxide BUN Creatinine Glucose POC Glucose 108 H Lactic Acid Calcium Ionized Calcium Phosphorus Magnesium 1.60 L Direct Bilirubin AST ALT Alkaline Phosphatase Lactate Dehydrogenase Troponin T C-Reactive Protein Total Protein Albumin Prealbumin Triglycerides Cholesterol LDL Cholesterol Direct HDL Cholesterol 25-OH Vitamin D Total PTH Intact Urine pH Urine WBC (Auto) Urine Creatinine Urine Total Protein Fluid Total Protein Vancomycin Trough Rheumatoid Factor Complement C4 Miscellaneous Test Crossmatch See Detail 11/25/16 11/25/16 11/25/16 00:03 04:42 04:42 WBC RBC 3.03 L Hgb 8.6 L Hct 25.3 L MCV MCH MCHC RDW 16.2 H Plt Count Lymph % (Auto) [place] % (Auto) 8.1 H Lymph # [place] # Baso # Seg Neutrophils % 71.3 H Seg Neuts % (Manual) Lymphocytes % (Manual) Monocytes % (Manual) Eosinophils % (Manual) Basophils % (Manual) Nucleated RBC % Seg Neutrophils # Seg Neutrophils # Man Lymphocytes # (Manual) Monocytes # (Manual) Eosinophils # (Manual) Basophils # (Manual) PT INR Fibrinogen dRVVT Confirm Interp Factor V Activity POC ABG pH POC ABG pCO2 POC ABG pO2 ABG pO2 ABG HCO3 ABG Base Excess ABG Hemoglobin Oxyhemoglobin Sodium Potassium Chloride Carbon Dioxide BUN 61 H Creatinine 3.0 H Glucose 102 H POC Glucose 113 H Lactic Acid Calcium 8.2 L Ionized Calcium Phosphorus Magnesium Direct Bilirubin AST ALT Alkaline Phosphatase 142 H Lactate Dehydrogenase Troponin T C-Reactive Protein Total Protein 5.7 L Albumin 1.5 L Prealbumin Triglycerides Cholesterol LDL Cholesterol Direct HDL Cholesterol 25-OH Vitamin D Total PTH Intact Urine pH Urine WBC (Auto) Urine Creatinine Urine Total Protein Fluid Total Protein Vancomycin Trough Rheumatoid Factor Complement C4 Miscellaneous Test Crossmatch 11/25/16 11/25/16 11/25/16 05:12 11:31 14:12 WBC RBC Hgb Hct MCV MCH MCHC RDW Plt Count Lymph % (Auto) [place] % (Auto) Lymph # [place] # Baso # Seg Neutrophils % Seg Neuts % (Manual) Lymphocytes % (Manual) Monocytes % (Manual) Eosinophils % (Manual) Basophils % (Manual) Nucleated RBC % Seg Neutrophils # Seg Neutrophils # Man Lymphocytes # (Manual) Monocytes # (Manual) Eosinophils # (Manual) Basophils # (Manual) PT INR Fibrinogen dRVVT Confirm Interp Factor V Activity POC ABG pH 7.487 H POC ABG pCO2 POC ABG pO2 153 H ABG pO2 ABG HCO3 ABG Base Excess ABG Hemoglobin Oxyhemoglobin Sodium Potassium Chloride Carbon Dioxide BUN Creatinine Glucose POC Glucose 131 H 140 H Lactic Acid Calcium Ionized Calcium Phosphorus Magnesium Direct Bilirubin AST ALT Alkaline Phosphatase Lactate Dehydrogenase Troponin T C-Reactive Protein Total Protein Albumin Prealbumin Triglycerides Cholesterol LDL Cholesterol Direct HDL Cholesterol 25-OH Vitamin D Total PTH Intact Urine pH Urine WBC (Auto) Urine Creatinine Urine Total Protein Fluid Total Protein Vancomycin Trough Rheumatoid Factor Complement C4 Miscellaneous Test Crossmatch 11/25/16 11/26/16 11/26/16 17:23 00:09 05:13 WBC RBC 2.94 L Hgb 8.4 L Hct 24.6 L MCV MCH MCHC RDW 16.4 H Plt Count Lymph % (Auto) [place] % (Auto) 12.3 H Lymph # [place] # 1.1 H Baso # Seg Neutrophils % Seg Neuts % (Manual) Lymphocytes % (Manual) Monocytes % (Manual) Eosinophils % (Manual) Basophils % (Manual) Nucleated RBC % Seg Neutrophils # Seg Neutrophils # Man Lymphocytes # (Manual) Monocytes # (Manual) Eosinophils # (Manual) Basophils # (Manual) PT INR Fibrinogen dRVVT Confirm Interp Factor V Activity POC ABG pH POC ABG pCO2 POC ABG pO2 ABG pO2 ABG HCO3 ABG Base Excess ABG Hemoglobin Oxyhemoglobin Sodium Potassium Chloride Carbon Dioxide BUN Creatinine Glucose POC Glucose 146 H 112 H Lactic Acid Calcium Ionized Calcium Phosphorus Magnesium Direct Bilirubin AST ALT Alkaline Phosphatase Lactate Dehydrogenase Troponin T C-Reactive Protein Total Protein Albumin Prealbumin Triglycerides Cholesterol LDL Cholesterol Direct HDL Cholesterol 25-OH Vitamin D Total PTH Intact Urine pH Urine WBC (Auto) Urine Creatinine Urine Total Protein Fluid Total Protein Vancomycin Trough Rheumatoid Factor Complement C4 Miscellaneous Test Crossmatch 11/26/16 11/26/16 11/26/16 05:13 05:28 11:53 WBC RBC Hgb Hct MCV MCH MCHC RDW Plt Count Lymph % (Auto) [place] % (Auto) Lymph # [place] # Baso # Seg Neutrophils % Seg Neuts % (Manual) Lymphocytes % (Manual) Monocytes % (Manual) Eosinophils % (Manual) Basophils % (Manual) Nucleated RBC % Seg Neutrophils # Seg Neutrophils # Man Lymphocytes # (Manual) Monocytes # (Manual) Eosinophils # (Manual) Basophils # (Manual) PT INR Fibrinogen dRVVT Confirm Interp Factor V Activity POC ABG pH POC ABG pCO2 POC ABG pO2 ABG pO2 ABG HCO3 ABG Base Excess ABG Hemoglobin Oxyhemoglobin Sodium Potassium Chloride 97.8 L Carbon Dioxide BUN 37 H Creatinine 2.0 H Glucose 109 H POC Glucose 117 H 111 H Lactic Acid Calcium 7.9 L Ionized Calcium Phosphorus 1.80 L D Magnesium Direct Bilirubin AST ALT Alkaline Phosphatase Lactate Dehydrogenase Troponin T C-Reactive Protein Total Protein Albumin Prealbumin Triglycerides Cholesterol LDL Cholesterol Direct HDL Cholesterol 25-OH Vitamin D Total PTH Intact Urine pH Urine WBC (Auto) Urine Creatinine Urine Total Protein Fluid Total Protein Vancomycin Trough Rheumatoid Factor Complement C4 Miscellaneous Test Crossmatch 11/26/16 11/27/16 11/27/16 17:14 04:50 06:02 WBC RBC Hgb Hct MCV MCH MCHC RDW Plt Count Lymph % (Auto) [place] % (Auto) Lymph # [place] # Baso # Seg Neutrophils % Seg Neuts % (Manual) Lymphocytes % (Manual) Monocytes % (Manual) Eosinophils % (Manual) Basophils % (Manual) Nucleated RBC % Seg Neutrophils # Seg Neutrophils # Man Lymphocytes # (Manual) Monocytes # (Manual) Eosinophils # (Manual) Basophils # (Manual) PT INR Fibrinogen dRVVT Confirm Interp Factor V Activity POC ABG pH POC ABG pCO2 POC ABG pO2 ABG pO2 75.2 L ABG HCO3 26.4 H ABG Base Excess ABG Hemoglobin 7.6 L Oxyhemoglobin 94.8 L Sodium Potassium Chloride Carbon Dioxide BUN 49 H Creatinine 2.3 H Glucose POC Glucose 115 H Lactic Acid Calcium Ionized Calcium Phosphorus 1.50 L Magnesium Direct Bilirubin AST ALT Alkaline Phosphatase Lactate Dehydrogenase Troponin T C-Reactive Protein Total Protein Albumin Prealbumin Triglycerides Cholesterol LDL Cholesterol Direct HDL Cholesterol 25-OH Vitamin D Total PTH Intact Urine pH Urine WBC (Auto) Urine Creatinine Urine Total Protein Fluid Total Protein Vancomycin Trough Rheumatoid Factor Complement C4 Miscellaneous Test Crossmatch 11/27/16 11/27/16 11/27/16 06:02 11:25 17:25 WBC 11.6 H RBC 2.75 L Hgb 7.6 L Hct 23.4 L MCV MCH MCHC RDW 16.5 H Plt Count Lymph % (Auto) [place] % (Auto) Lymph # [place] # Baso # Seg Neutrophils % Seg Neuts % (Manual) Lymphocytes % (Manual) Monocytes % (Manual) Eosinophils % (Manual) Basophils % (Manual) Nucleated RBC % Seg Neutrophils # Seg Neutrophils # Man Lymphocytes # (Manual) Monocytes # (Manual) Eosinophils # (Manual) Basophils # (Manual) PT INR Fibrinogen dRVVT Confirm Interp Factor V Activity POC ABG pH POC ABG pCO2 POC ABG pO2 ABG pO2 ABG HCO3 ABG Base Excess ABG Hemoglobin Oxyhemoglobin Sodium Potassium Chloride Carbon Dioxide BUN Creatinine Glucose POC Glucose 114 H 126 H Lactic Acid Calcium Ionized Calcium Phosphorus Magnesium Direct Bilirubin AST ALT Alkaline Phosphatase Lactate Dehydrogenase Troponin T C-Reactive Protein Total Protein Albumin Prealbumin Triglycerides Cholesterol LDL Cholesterol Direct HDL Cholesterol 25-OH Vitamin D Total PTH Intact Urine pH Urine WBC (Auto) Urine Creatinine Urine Total Protein Fluid Total Protein Vancomycin Trough Rheumatoid Factor Complement C4 Miscellaneous Test Crossmatch 11/28/16 11/28/16 11/28/16 04:45 05:33 05:44 WBC RBC Hgb Hct MCV MCH MCHC RDW Plt Count Lymph % (Auto) [place] % (Auto) Lymph # [place] # Baso # Seg Neutrophils % Seg Neuts % (Manual) Lymphocytes % (Manual) Monocytes % (Manual) Eosinophils % (Manual) Basophils % (Manual) Nucleated RBC % Seg Neutrophils # Seg Neutrophils # Man Lymphocytes # (Manual) Monocytes # (Manual) Eosinophils # (Manual) Basophils # (Manual) PT INR Fibrinogen dRVVT Confirm Interp Factor V Activity POC ABG pH POC ABG pCO2 POC ABG pO2 ABG pO2 99.3 H ABG HCO3 ABG Base Excess ABG Hemoglobin 8.3 L Oxyhemoglobin Sodium Potassium Chloride Carbon Dioxide BUN 63 H Creatinine 2.4 H Glucose 102 H POC Glucose 108 H Lactic Acid Calcium Ionized Calcium Phosphorus 1.80 L Magnesium Direct Bilirubin AST ALT Alkaline Phosphatase Lactate Dehydrogenase Troponin T C-Reactive Protein Total Protein Albumin Prealbumin Triglycerides Cholesterol LDL Cholesterol Direct HDL Cholesterol 25-OH Vitamin D Total PTH Intact Urine pH Urine WBC (Auto) Urine Creatinine Urine Total Protein Fluid Total Protein Vancomycin Trough Rheumatoid Factor Complement C4 Miscellaneous Test Crossmatch 11/28/16 11/28/16 11/28/16 12:31 16:09 23:46 WBC RBC Hgb Hct MCV MCH MCHC RDW Plt Count Lymph % (Auto) [place] % (Auto) Lymph # [place] # Baso # Seg Neutrophils % Seg Neuts % (Manual) Lymphocytes % (Manual) Monocytes % (Manual) Eosinophils % (Manual) Basophils % (Manual) Nucleated RBC % Seg Neutrophils # Seg Neutrophils # Man Lymphocytes # (Manual) Monocytes # (Manual) Eosinophils # (Manual) Basophils # (Manual) PT INR Fibrinogen dRVVT Confirm Interp Factor V Activity POC ABG pH POC ABG pCO2 POC ABG pO2 ABG pO2 ABG HCO3 ABG Base Excess ABG Hemoglobin Oxyhemoglobin Sodium Potassium Chloride Carbon Dioxide BUN Creatinine Glucose POC Glucose 126 H 111 H 119 H Lactic Acid Calcium Ionized Calcium Phosphorus Magnesium Direct Bilirubin AST ALT Alkaline Phosphatase Lactate Dehydrogenase Troponin T C-Reactive Protein Total Protein Albumin Prealbumin Triglycerides Cholesterol LDL Cholesterol Direct HDL Cholesterol 25-OH Vitamin D Total PTH Intact Urine pH Urine WBC (Auto) Urine Creatinine Urine Total Protein Fluid Total Protein Vancomycin Trough Rheumatoid Factor Complement C4 Miscellaneous Test Crossmatch 11/29/16 11/29/16 11/29/16 03:33 04:52 05:10 WBC RBC Hgb Hct MCV MCH MCHC RDW Plt Count Lymph % (Auto) [place] % (Auto) Lymph # [place] # Baso # Seg Neutrophils % Seg Neuts % (Manual) Lymphocytes % (Manual) Monocytes % (Manual) Eosinophils % (Manual) Basophils % (Manual) Nucleated RBC % Seg Neutrophils # Seg Neutrophils # Man Lymphocytes # (Manual) Monocytes # (Manual) Eosinophils # (Manual) Basophils # (Manual) PT INR Fibrinogen dRVVT Confirm Interp Factor V Activity POC ABG pH POC ABG pCO2 POC ABG pO2 ABG pO2 ABG HCO3 ABG Base Excess ABG Hemoglobin 7.0 L Oxyhemoglobin 94.9 L Sodium Potassium Chloride Carbon Dioxide BUN 73 H Creatinine 2.7 H Glucose POC Glucose 108 H Lactic Acid Calcium Ionized Calcium Phosphorus Magnesium Direct Bilirubin AST ALT Alkaline Phosphatase Lactate Dehydrogenase Troponin T C-Reactive Protein Total Protein Albumin Prealbumin Triglycerides Cholesterol LDL Cholesterol Direct HDL Cholesterol 25-OH Vitamin D Total PTH Intact Urine pH Urine WBC (Auto) Urine Creatinine Urine Total Protein Fluid Total Protein Vancomycin Trough Rheumatoid Factor Complement C4 Miscellaneous Test Crossmatch 11/29/16 11/29/16 11/29/16 12:16 18:05 23:46 WBC RBC Hgb Hct MCV MCH MCHC RDW Plt Count Lymph % (Auto) [place] % (Auto) Lymph # [place] # Baso # Seg Neutrophils % Seg Neuts % (Manual) Lymphocytes % (Manual) Monocytes % (Manual) Eosinophils % (Manual) Basophils % (Manual) Nucleated RBC % Seg Neutrophils # Seg Neutrophils # Man Lymphocytes # (Manual) Monocytes # (Manual) Eosinophils # (Manual) Basophils # (Manual) PT INR Fibrinogen dRVVT Confirm Interp Factor V Activity POC ABG pH POC ABG pCO2 POC ABG pO2 ABG pO2 ABG HCO3 ABG Base Excess ABG Hemoglobin Oxyhemoglobin Sodium Potassium Chloride Carbon Dioxide BUN Creatinine Glucose POC Glucose 133 H 146 H 141 H Lactic Acid Calcium Ionized Calcium Phosphorus Magnesium Direct Bilirubin AST ALT Alkaline Phosphatase Lactate Dehydrogenase Troponin T C-Reactive Protein Total Protein Albumin Prealbumin Triglycerides Cholesterol LDL Cholesterol Direct HDL Cholesterol 25-OH Vitamin D Total PTH Intact Urine pH Urine WBC (Auto) Urine Creatinine Urine Total Protein Fluid Total Protein Vancomycin Trough Rheumatoid Factor Complement C4 Miscellaneous Test Crossmatch 11/30/16 11/30/16 11/30/16 04:17 04:17 04:32 WBC 12.0 H RBC 2.80 L Hgb 7.8 L Hct 23.6 L MCV MCH MCHC RDW 16.6 H Plt Count Lymph % (Auto) [place] % (Auto) 11.3 H Lymph # [place] # 1.4 H Baso # Seg Neutrophils % Seg Neuts % (Manual) Lymphocytes % (Manual) Monocytes % (Manual) Eosinophils % (Manual) Basophils % (Manual) Nucleated RBC % Seg Neutrophils # 8.2 H Seg Neutrophils # Man Lymphocytes # (Manual) Monocytes # (Manual) Eosinophils # (Manual) Basophils # (Manual) PT INR Fibrinogen dRVVT Confirm Interp Factor V Activity POC ABG pH POC ABG pCO2 POC ABG pO2 ABG pO2 ABG HCO3 ABG Base Excess ABG Hemoglobin Oxyhemoglobin Sodium 169 H* D Potassium 5.1 H Chloride 121.5 H Carbon Dioxide BUN 34 H Creatinine 1.3 H D Glucose 133 H POC Glucose 131 H Lactic Acid Calcium 10.3 H Ionized Calcium Phosphorus Magnesium Direct Bilirubin AST ALT Alkaline Phosphatase Lactate Dehydrogenase Troponin T C-Reactive Protein Total Protein Albumin Prealbumin Triglycerides Cholesterol LDL Cholesterol Direct HDL Cholesterol 25-OH Vitamin D Total PTH Intact Urine pH Urine WBC (Auto) Urine Creatinine Urine Total Protein Fluid Total Protein Vancomycin Trough Rheumatoid Factor Complement C4 Miscellaneous Test Crossmatch 11/30/16 11/30/16 11/30/16 05:45 11:10 17:26 WBC RBC Hgb Hct MCV MCH MCHC RDW Plt Count Lymph % (Auto) [place] % (Auto) Lymph # [place] # Baso # Seg Neutrophils % Seg Neuts % (Manual) Lymphocytes % (Manual) Monocytes % (Manual) Eosinophils % (Manual) Basophils % (Manual) Nucleated RBC % Seg Neutrophils # Seg Neutrophils # Man Lymphocytes # (Manual) Monocytes # (Manual) Eosinophils # (Manual) Basophils # (Manual) PT INR Fibrinogen dRVVT Confirm Interp Factor V Activity POC ABG pH POC ABG pCO2 POC ABG pO2 ABG pO2 ABG HCO3 ABG Base Excess ABG Hemoglobin Oxyhemoglobin Sodium Potassium Chloride Carbon Dioxide BUN 45 H Creatinine 1.6 H Glucose 131 H POC Glucose 146 H 134 H Lactic Acid Calcium Ionized Calcium Phosphorus Magnesium Direct Bilirubin AST ALT Alkaline Phosphatase Lactate Dehydrogenase Troponin T C-Reactive Protein Total Protein Albumin Prealbumin Triglycerides Cholesterol LDL Cholesterol Direct HDL Cholesterol 25-OH Vitamin D Total PTH Intact Urine pH Urine WBC (Auto) Urine Creatinine Urine Total Protein Fluid Total Protein Vancomycin Trough Rheumatoid Factor Complement C4 Miscellaneous Test Crossmatch 11/30/16 12/01/16 12/01/16 23:35 00:06 03:35 WBC RBC Hgb Hct MCV MCH MCHC RDW Plt Count Lymph % (Auto) [place] % (Auto) Lymph # [place] # Baso # Seg Neutrophils % Seg Neuts % (Manual) Lymphocytes % (Manual) Monocytes % (Manual) Eosinophils % (Manual) Basophils % (Manual) Nucleated RBC % Seg Neutrophils # Seg Neutrophils # Man Lymphocytes # (Manual) Monocytes # (Manual) Eosinophils # (Manual) Basophils # (Manual) PT INR Fibrinogen dRVVT Confirm Interp Factor V Activity POC ABG pH POC ABG pCO2 POC ABG pO2 ABG pO2 ABG HCO3 ABG Base Excess ABG Hemoglobin 6.9 L Oxyhemoglobin Sodium Potassium Chloride Carbon Dioxide BUN 58 H Creatinine 1.8 H Glucose 146 H POC Glucose 151 H Lactic Acid Calcium Ionized Calcium Phosphorus Magnesium Direct Bilirubin AST ALT Alkaline Phosphatase Lactate Dehydrogenase Troponin T C-Reactive Protein Total Protein Albumin Prealbumin Triglycerides Cholesterol LDL Cholesterol Direct HDL Cholesterol 25-OH Vitamin D Total PTH Intact Urine pH Urine WBC (Auto) Urine Creatinine Urine Total Protein Fluid Total Protein Vancomycin Trough Rheumatoid Factor Complement C4 Miscellaneous Test Crossmatch 12/01/16 12/01/16 12/01/16 03:35 05:47 11:52 WBC 12.3 H RBC 2.82 L Hgb 7.8 L Hct 23.7 L MCV MCH MCHC RDW 16.7 H Plt Count Lymph % (Auto) [place] % (Auto) 9.8 H Lymph # [place] # 1.2 H Baso # Seg Neutrophils % Seg Neuts % (Manual) Lymphocytes % (Manual) Monocytes % (Manual) Eosinophils % (Manual) Basophils % (Manual) Nucleated RBC % Seg Neutrophils # 8.4 H Seg Neutrophils # Man Lymphocytes # (Manual) Monocytes # (Manual) Eosinophils # (Manual) Basophils # (Manual) PT INR Fibrinogen dRVVT Confirm Interp Factor V Activity POC ABG pH POC ABG pCO2 POC ABG pO2 ABG pO2 ABG HCO3 ABG Base Excess ABG Hemoglobin Oxyhemoglobin Sodium Potassium Chloride Carbon Dioxide BUN Creatinine Glucose POC Glucose 152 H 152 H Lactic Acid Calcium Ionized Calcium Phosphorus Magnesium Direct Bilirubin AST ALT Alkaline Phosphatase Lactate Dehydrogenase Troponin T C-Reactive Protein Total Protein Albumin Prealbumin Triglycerides Cholesterol LDL Cholesterol Direct HDL Cholesterol 25-OH Vitamin D Total PTH Intact Urine pH Urine WBC (Auto) Urine Creatinine Urine Total Protein Fluid Total Protein Vancomycin Trough Rheumatoid Factor Complement C4 Miscellaneous Test Crossmatch 12/01/16 12/01/16 12/02/16 17:40 23:41 05:00 WBC RBC Hgb Hct MCV MCH MCHC RDW Plt Count Lymph % (Auto) [place] % (Auto) Lymph # [place] # Baso # Seg Neutrophils % Seg Neuts % (Manual) Lymphocytes % (Manual) Monocytes % (Manual) Eosinophils % (Manual) Basophils % (Manual) Nucleated RBC % Seg Neutrophils # Seg Neutrophils # Man Lymphocytes # (Manual) Monocytes # (Manual) Eosinophils # (Manual) Basophils # (Manual) PT INR Fibrinogen dRVVT Confirm Interp Factor V Activity POC ABG pH POC ABG pCO2 POC ABG pO2 ABG pO2 ABG HCO3 ABG Base Excess ABG Hemoglobin Oxyhemoglobin Sodium Potassium Chloride Carbon Dioxide BUN 45 H Creatinine Glucose 115 H POC Glucose 140 H 144 H Lactic Acid Calcium Ionized Calcium Phosphorus Magnesium Direct Bilirubin AST ALT Alkaline Phosphatase Lactate Dehydrogenase Troponin T C-Reactive Protein Total Protein Albumin Prealbumin Triglycerides Cholesterol LDL Cholesterol Direct HDL Cholesterol 25-OH Vitamin D Total PTH Intact Urine pH Urine WBC (Auto) Urine Creatinine Urine Total Protein Fluid Total Protein Vancomycin Trough Rheumatoid Factor Complement C4 Miscellaneous Test Crossmatch 12/02/16 12/02/16 12/02/16 05:31 11:20 17:38 WBC RBC Hgb Hct MCV MCH MCHC RDW Plt Count Lymph % (Auto) [place] % (Auto) Lymph # [place] # Baso # Seg Neutrophils % Seg Neuts % (Manual) Lymphocytes % (Manual) Monocytes % (Manual) Eosinophils % (Manual) Basophils % (Manual) Nucleated RBC % Seg Neutrophils # Seg Neutrophils # Man Lymphocytes # (Manual) Monocytes # (Manual) Eosinophils # (Manual) Basophils # (Manual) PT INR Fibrinogen dRVVT Confirm Interp Factor V Activity POC ABG pH POC ABG pCO2 POC ABG pO2 ABG pO2 ABG HCO3 ABG Base Excess ABG Hemoglobin Oxyhemoglobin Sodium Potassium Chloride Carbon Dioxide BUN Creatinine Glucose POC Glucose 136 H 177 H 139 H Lactic Acid Calcium Ionized Calcium Phosphorus Magnesium Direct Bilirubin AST ALT Alkaline Phosphatase Lactate Dehydrogenase Troponin T C-Reactive Protein Total Protein Albumin Prealbumin Triglycerides Cholesterol LDL Cholesterol Direct HDL Cholesterol 25-OH Vitamin D Total PTH Intact Urine pH Urine WBC (Auto) Urine Creatinine Urine Total Protein Fluid Total Protein Vancomycin Trough Rheumatoid Factor Complement C4 Miscellaneous Test Crossmatch 12/02/16 12/03/16 12/03/16 23:43 04:00 04:00 WBC 20.4 H RBC 2.74 L Hgb 7.4 L Hct 23.6 L MCV MCH 27 L MCHC RDW 17.1 H Plt Count Lymph % (Auto) [place] % (Auto) Lymph # [place] # Baso # Seg Neutrophils % Seg Neuts % (Manual) 31.0 L Lymphocytes % (Manual) Monocytes % (Manual) Eosinophils % (Manual) Basophils % (Manual) Nucleated RBC % Seg Neutrophils # Seg Neutrophils # Man Lymphocytes # (Manual) Monocytes # (Manual) Eosinophils # (Manual) Basophils # (Manual) PT INR Fibrinogen dRVVT Confirm Interp Factor V Activity POC ABG pH POC ABG pCO2 POC ABG pO2 ABG pO2 ABG HCO3 ABG Base Excess ABG Hemoglobin Oxyhemoglobin Sodium Potassium Chloride Carbon Dioxide BUN 61 H Creatinine 1.6 H Glucose 119 H POC Glucose 158 H Lactic Acid Calcium Ionized Calcium Phosphorus Magnesium Direct Bilirubin AST ALT Alkaline Phosphatase Lactate Dehydrogenase Troponin T C-Reactive Protein Total Protein Albumin Prealbumin Triglycerides Cholesterol LDL Cholesterol Direct HDL Cholesterol 25-OH Vitamin D Total PTH Intact Urine pH Urine WBC (Auto) Urine Creatinine Urine Total Protein Fluid Total Protein Vancomycin Trough Rheumatoid Factor Complement C4 Miscellaneous Test Crossmatch 12/03/16 12/03/16 12/03/16 05:02 12:11 18:16 WBC RBC Hgb Hct MCV MCH MCHC RDW Plt Count Lymph % (Auto) [place] % (Auto) Lymph # [place] # Baso # Seg Neutrophils % Seg Neuts % (Manual) Lymphocytes % (Manual) Monocytes % (Manual) Eosinophils % (Manual) Basophils % (Manual) Nucleated RBC % Seg Neutrophils # Seg Neutrophils # Man Lymphocytes # (Manual) Monocytes # (Manual) Eosinophils # (Manual) Basophils # (Manual) PT INR Fibrinogen dRVVT Confirm Interp Factor V Activity POC ABG pH POC ABG pCO2 POC ABG pO2 ABG pO2 ABG HCO3 ABG Base Excess ABG Hemoglobin Oxyhemoglobin Sodium Potassium Chloride Carbon Dioxide BUN Creatinine Glucose POC Glucose 146 H 157 H 124 H Lactic Acid Calcium Ionized Calcium Phosphorus Magnesium Direct Bilirubin AST ALT Alkaline Phosphatase Lactate Dehydrogenase Troponin T C-Reactive Protein Total Protein Albumin Prealbumin Triglycerides Cholesterol LDL Cholesterol Direct HDL Cholesterol 25-OH Vitamin D Total PTH Intact Urine pH Urine WBC (Auto) Urine Creatinine Urine Total Protein Fluid Total Protein Vancomycin Trough Rheumatoid Factor Complement C4 Miscellaneous Test Crossmatch 12/03/16 12/04/16 12/04/16 23:41 04:00 04:45 WBC RBC Hgb Hct MCV MCH MCHC RDW Plt Count Lymph % (Auto) [place] % (Auto) Lymph # [place] # Baso # Seg Neutrophils % Seg Neuts % (Manual) Lymphocytes % (Manual) Monocytes % (Manual) Eosinophils % (Manual) Basophils % (Manual) Nucleated RBC % Seg Neutrophils # Seg Neutrophils # Man Lymphocytes # (Manual) Monocytes # (Manual) Eosinophils # (Manual) Basophils # (Manual) PT INR Fibrinogen dRVVT Confirm Interp Factor V Activity POC ABG pH POC ABG pCO2 POC ABG pO2 ABG pO2 ABG HCO3 ABG Base Excess ABG Hemoglobin Oxyhemoglobin Sodium Potassium Chloride Carbon Dioxide BUN 76 H Creatinine 1.6 H Glucose POC Glucose 130 H 136 H Lactic Acid Calcium Ionized Calcium Phosphorus Magnesium Direct Bilirubin AST ALT Alkaline Phosphatase 155 H Lactate Dehydrogenase Troponin T C-Reactive Protein Total Protein 5.5 L Albumin 1.5 L Prealbumin Triglycerides Cholesterol LDL Cholesterol Direct HDL Cholesterol 25-OH Vitamin D Total PTH Intact Urine pH Urine WBC (Auto) Urine Creatinine Urine Total Protein Fluid Total Protein Vancomycin Trough Rheumatoid Factor Complement C4 Miscellaneous Test Crossmatch 12/04/16 12/04/16 12/05/16 12:08 17:23 00:10 WBC RBC Hgb Hct MCV MCH MCHC RDW Plt Count Lymph % (Auto) [place] % (Auto) Lymph # [place] # Baso # Seg Neutrophils % Seg Neuts % (Manual) Lymphocytes % (Manual) Monocytes % (Manual) Eosinophils % (Manual) Basophils % (Manual) Nucleated RBC % Seg Neutrophils # Seg Neutrophils # Man Lymphocytes # (Manual) Monocytes # (Manual) Eosinophils # (Manual) Basophils # (Manual) PT INR Fibrinogen dRVVT Confirm Interp Factor V Activity POC ABG pH POC ABG pCO2 POC ABG pO2 ABG pO2 ABG HCO3 ABG Base Excess ABG Hemoglobin Oxyhemoglobin Sodium Potassium Chloride Carbon Dioxide BUN Creatinine Glucose POC Glucose 114 H 129 H 124 H Lactic Acid Calcium Ionized Calcium Phosphorus Magnesium Direct Bilirubin AST ALT Alkaline Phosphatase Lactate Dehydrogenase Troponin T C-Reactive Protein Total Protein Albumin Prealbumin Triglycerides Cholesterol LDL Cholesterol Direct HDL Cholesterol 25-OH Vitamin D Total PTH Intact Urine pH Urine WBC (Auto) Urine Creatinine Urine Total Protein Fluid Total Protein Vancomycin Trough Rheumatoid Factor Complement C4 Miscellaneous Test Crossmatch 12/05/16 12/05/16 12/05/16 05:00 05:00 05:18 WBC RBC Hgb Hct MCV MCH MCHC RDW Plt Count Lymph % (Auto) [place] % (Auto) Lymph # [place] # Baso # Seg Neutrophils % Seg Neuts % (Manual) Lymphocytes % (Manual) Monocytes % (Manual) Eosinophils % (Manual) Basophils % (Manual) Nucleated RBC % Seg Neutrophils # Seg Neutrophils # Man Lymphocytes # (Manual) Monocytes # (Manual) Eosinophils # (Manual) Basophils # (Manual) PT INR Fibrinogen dRVVT Confirm Interp Factor V Activity POC ABG pH POC ABG pCO2 POC ABG pO2 ABG pO2 ABG HCO3 ABG Base Excess ABG Hemoglobin Oxyhemoglobin Sodium Potassium Chloride Carbon Dioxide 21 L BUN 85 H Creatinine 1.9 H Glucose 131 H POC Glucose 154 H Lactic Acid Calcium Ionized Calcium Phosphorus Magnesium Direct Bilirubin AST ALT Alkaline Phosphatase Lactate Dehydrogenase Troponin T C-Reactive Protein 19.30 H Total Protein Albumin Prealbumin Triglycerides Cholesterol LDL Cholesterol Direct HDL Cholesterol 25-OH Vitamin D Total PTH Intact Urine pH Urine WBC (Auto) Urine Creatinine Urine Total Protein Fluid Total Protein Vancomycin Trough Rheumatoid Factor Complement C4 Miscellaneous Test Crossmatch 12/05/16 12/05/16 12/05/16 11:43 17:46 23:25 WBC RBC Hgb Hct MCV MCH MCHC RDW Plt Count Lymph % (Auto) [place] % (Auto) Lymph # [place] # Baso # Seg Neutrophils % Seg Neuts % (Manual) Lymphocytes % (Manual) Monocytes % (Manual) Eosinophils % (Manual) Basophils % (Manual) Nucleated RBC % Seg Neutrophils # Seg Neutrophils # Man Lymphocytes # (Manual) Monocytes # (Manual) Eosinophils # (Manual) Basophils # (Manual) PT INR Fibrinogen dRVVT Confirm Interp Factor V Activity POC ABG pH POC ABG pCO2 POC ABG pO2 ABG pO2 ABG HCO3 ABG Base Excess ABG Hemoglobin Oxyhemoglobin Sodium Potassium Chloride Carbon Dioxide BUN Creatinine Glucose POC Glucose 117 H 113 H 111 H Lactic Acid Calcium Ionized Calcium Phosphorus Magnesium Direct Bilirubin AST ALT Alkaline Phosphatase Lactate Dehydrogenase Troponin T C-Reactive Protein Total Protein Albumin Prealbumin Triglycerides Cholesterol LDL Cholesterol Direct HDL Cholesterol 25-OH Vitamin D Total PTH Intact Urine pH Urine WBC (Auto) Urine Creatinine Urine Total Protein Fluid Total Protein Vancomycin Trough Rheumatoid Factor Complement C4 Miscellaneous Test Crossmatch 12/05/16 12/06/16 12/06/16 Unknown 04:58 06:00 WBC RBC Hgb Hct MCV MCH MCHC RDW Plt Count Lymph % (Auto) [place] % (Auto) Lymph # [place] # Baso # Seg Neutrophils % Seg Neuts % (Manual) Lymphocytes % (Manual) Monocytes % (Manual) Eosinophils % (Manual) Basophils % (Manual) Nucleated RBC % Seg Neutrophils # Seg Neutrophils # Man Lymphocytes # (Manual) Monocytes # (Manual) Eosinophils # (Manual) Basophils # (Manual) PT INR Fibrinogen dRVVT Confirm Interp Factor V Activity POC ABG pH POC ABG pCO2 POC ABG pO2 ABG pO2 75.2 L ABG HCO3 ABG Base Excess -3.4 L ABG Hemoglobin 7.4 L Oxyhemoglobin 94.5 L Sodium Potassium Chloride Carbon Dioxide 20 L BUN 99 H Creatinine 2.1 H Glucose 126 H POC Glucose 145 H Lactic Acid Calcium Ionized Calcium Phosphorus 4.80 H Magnesium Direct Bilirubin AST ALT Alkaline Phosphatase Lactate Dehydrogenase Troponin T C-Reactive Protein Total Protein Albumin Prealbumin Triglycerides Cholesterol LDL Cholesterol Direct HDL Cholesterol 25-OH Vitamin D Total PTH Intact Urine pH Urine WBC (Auto) Urine Creatinine Urine Total Protein Fluid Total Protein Vancomycin Trough Rheumatoid Factor Complement C4 Miscellaneous Test Crossmatch 12/06/16 12/06/16 12/06/16 06:46 11:54 17:55 WBC RBC Hgb 8.3 L Hct 26.4 L MCV MCH MCHC RDW Plt Count Lymph % (Auto) [place] % (Auto) Lymph # [place] # Baso # Seg Neutrophils % Seg Neuts % (Manual) Lymphocytes % (Manual) Monocytes % (Manual) Eosinophils % (Manual) Basophils % (Manual) Nucleated RBC % Seg Neutrophils # Seg Neutrophils # Man Lymphocytes # (Manual) Monocytes # (Manual) Eosinophils # (Manual) Basophils # (Manual) PT INR Fibrinogen dRVVT Confirm Interp Factor V Activity POC ABG pH POC ABG pCO2 POC ABG pO2 ABG pO2 ABG HCO3 ABG Base Excess ABG Hemoglobin Oxyhemoglobin Sodium Potassium Chloride Carbon Dioxide BUN Creatinine Glucose POC Glucose 126 H 157 H Lactic Acid Calcium Ionized Calcium Phosphorus Magnesium Direct Bilirubin AST ALT Alkaline Phosphatase Lactate Dehydrogenase Troponin T C-Reactive Protein Total Protein Albumin Prealbumin Triglycerides Cholesterol LDL Cholesterol Direct HDL Cholesterol 25-OH Vitamin D Total PTH Intact Urine pH Urine WBC (Auto) Urine Creatinine Urine Total Protein Fluid Total Protein Vancomycin Trough Rheumatoid Factor Complement C4 Miscellaneous Test Crossmatch 12/06/16 12/07/16 12/07/16 23:59 05:34 06:30 WBC RBC Hgb Hct MCV MCH MCHC RDW Plt Count Lymph % (Auto) [place] % (Auto) Lymph # [place] # Baso # Seg Neutrophils % Seg Neuts % (Manual) Lymphocytes % (Manual) Monocytes % (Manual) Eosinophils % (Manual) Basophils % (Manual) Nucleated RBC % Seg Neutrophils # Seg Neutrophils # Man Lymphocytes # (Manual) Monocytes # (Manual) Eosinophils # (Manual) Basophils # (Manual) PT INR Fibrinogen dRVVT Confirm Interp Factor V Activity POC ABG pH POC ABG pCO2 POC ABG pO2 ABG pO2 ABG HCO3 ABG Base Excess ABG Hemoglobin Oxyhemoglobin Sodium Potassium Chloride Carbon Dioxide BUN 67 H Creatinine 1.4 H Glucose 126 H POC Glucose 129 H 129 H Lactic Acid Calcium Ionized Calcium Phosphorus Magnesium Direct Bilirubin AST ALT Alkaline Phosphatase Lactate Dehydrogenase Troponin T C-Reactive Protein Total Protein Albumin Prealbumin Triglycerides Cholesterol LDL Cholesterol Direct HDL Cholesterol 25-OH Vitamin D Total PTH Intact Urine pH Urine WBC (Auto) Urine Creatinine Urine Total Protein Fluid Total Protein Vancomycin Trough Rheumatoid Factor Complement C4 Miscellaneous Test Crossmatch 12/07/16 12/07/16 12/07/16 06:30 08:00 09:45 WBC 18.8 H RBC 2.52 L Hgb 6.9 L 6.8 L Hct 21.2 L 21.1 L MCV MCH 27 L MCHC RDW 18.0 H Plt Count Lymph % (Auto) [place] % (Auto) 9.9 H Lymph # [place] # 1.9 H Baso # Seg Neutrophils % 71.8 H Seg Neuts % (Manual) Lymphocytes % (Manual) Monocytes % (Manual) Eosinophils % (Manual) Basophils % (Manual) Nucleated RBC % Seg Neutrophils # 13.5 H Seg Neutrophils # Man Lymphocytes # (Manual) Monocytes # (Manual) Eosinophils # (Manual) Basophils # (Manual) PT INR Fibrinogen dRVVT Confirm Interp Factor V Activity POC ABG pH POC ABG pCO2 POC ABG pO2 ABG pO2 ABG HCO3 ABG Base Excess ABG Hemoglobin Oxyhemoglobin Sodium Potassium Chloride Carbon Dioxide BUN Creatinine Glucose POC Glucose Lactic Acid Calcium Ionized Calcium Phosphorus Magnesium Direct Bilirubin AST ALT Alkaline Phosphatase Lactate Dehydrogenase Troponin T C-Reactive Protein Total Protein Albumin Prealbumin Triglycerides Cholesterol LDL Cholesterol Direct HDL Cholesterol 25-OH Vitamin D Total PTH Intact Urine pH Urine WBC (Auto) Urine Creatinine Urine Total Protein Fluid Total Protein Vancomycin Trough Rheumatoid Factor Complement C4 Miscellaneous Test Crossmatch See Detail 12/07/16 12/07/16 12/07/16 11:44 18:19 23:59 WBC RBC Hgb Hct MCV MCH MCHC RDW Plt Count Lymph % (Auto) [place] % (Auto) Lymph # [place] # Baso # Seg Neutrophils % Seg Neuts % (Manual) Lymphocytes % (Manual) Monocytes % (Manual) Eosinophils % (Manual) Basophils % (Manual) Nucleated RBC % Seg Neutrophils # Seg Neutrophils # Man Lymphocytes # (Manual) Monocytes # (Manual) Eosinophils # (Manual) Basophils # (Manual) PT INR Fibrinogen dRVVT Confirm Interp Factor V Activity POC ABG pH POC ABG pCO2 POC ABG pO2 ABG pO2 ABG HCO3 ABG Base Excess ABG Hemoglobin Oxyhemoglobin Sodium Potassium Chloride Carbon Dioxide BUN Creatinine Glucose POC Glucose 137 H 138 H 133 H Lactic Acid Calcium Ionized Calcium Phosphorus Magnesium Direct Bilirubin AST ALT Alkaline Phosphatase Lactate Dehydrogenase Troponin T C-Reactive Protein Total Protein Albumin Prealbumin Triglycerides Cholesterol LDL Cholesterol Direct HDL Cholesterol 25-OH Vitamin D Total PTH Intact Urine pH Urine WBC (Auto) Urine Creatinine Urine Total Protein Fluid Total Protein Vancomycin Trough Rheumatoid Factor Complement C4 Miscellaneous Test Crossmatch 12/08/16 12/08/16 12/08/16 05:25 05:30 05:30 WBC 23.8 H RBC 2.88 L Hgb 8.1 L Hct 24.3 L MCV MCH MCHC RDW 16.7 H Plt Count Lymph % (Auto) [place] % (Auto) Lymph # [place] # Baso # Seg Neutrophils % Seg Neuts % (Manual) 76.0 H Lymphocytes % (Manual) 9.0 L Monocytes % (Manual) 9.0 H Eosinophils % (Manual) Basophils % (Manual) Nucleated RBC % Seg Neutrophils # Seg Neutrophils # Man 18.1 H Lymphocytes # (Manual) Monocytes # (Manual) 2.1 H Eosinophils # (Manual) Basophils # (Manual) PT INR Fibrinogen dRVVT Confirm Interp Factor V Activity POC ABG pH POC ABG pCO2 POC ABG pO2 ABG pO2 ABG HCO3 ABG Base Excess ABG Hemoglobin Oxyhemoglobin Sodium Potassium Chloride Carbon Dioxide 21 L BUN 76 H Creatinine 1.6 H Glucose 133 H POC Glucose 177 H Lactic Acid Calcium Ionized Calcium Phosphorus Magnesium Direct Bilirubin AST ALT Alkaline Phosphatase Lactate Dehydrogenase Troponin T C-Reactive Protein Total Protein Albumin Prealbumin Triglycerides Cholesterol LDL Cholesterol Direct HDL Cholesterol 25-OH Vitamin D Total PTH Intact Urine pH Urine WBC (Auto) Urine Creatinine Urine Total Protein Fluid Total Protein Vancomycin Trough Rheumatoid Factor Complement C4 Miscellaneous Test Crossmatch 12/08/16 12/08/16 12/09/16 11:45 18:00 00:00 WBC RBC Hgb Hct MCV MCH MCHC RDW Plt Count Lymph % (Auto) [place] % (Auto) Lymph # [place] # Baso # Seg Neutrophils % Seg Neuts % (Manual) Lymphocytes % (Manual) Monocytes % (Manual) Eosinophils % (Manual) Basophils % (Manual) Nucleated RBC % Seg Neutrophils # Seg Neutrophils # Man Lymphocytes # (Manual) Monocytes # (Manual) Eosinophils # (Manual) Basophils # (Manual) PT INR Fibrinogen dRVVT Confirm Interp Factor V Activity POC ABG pH POC ABG pCO2 POC ABG pO2 ABG pO2 ABG HCO3 ABG Base Excess ABG Hemoglobin Oxyhemoglobin Sodium Potassium Chloride Carbon Dioxide BUN Creatinine Glucose POC Glucose 163 H 123 H 137 H Lactic Acid Calcium Ionized Calcium Phosphorus Magnesium Direct Bilirubin AST ALT Alkaline Phosphatase Lactate Dehydrogenase Troponin T C-Reactive Protein Total Protein Albumin Prealbumin Triglycerides Cholesterol LDL Cholesterol Direct HDL Cholesterol 25-OH Vitamin D Total PTH Intact Urine pH Urine WBC (Auto) Urine Creatinine Urine Total Protein Fluid Total Protein Vancomycin Trough Rheumatoid Factor Complement C4 Miscellaneous Test Crossmatch 12/09/16 12/09/16 12/09/16 05:34 06:00 06:00 WBC 15.5 H RBC 2.87 L Hgb 8.0 L Hct 24.2 L MCV MCH MCHC RDW 17.2 H Plt Count Lymph % (Auto) [place] % (Auto) 11.6 H Lymph # [place] # 1.8 H Baso # Seg Neutrophils % 70.8 H Seg Neuts % (Manual) Lymphocytes % (Manual) Monocytes % (Manual) Eosinophils % (Manual) Basophils % (Manual) Nucleated RBC % Seg Neutrophils # 11.0 H Seg Neutrophils # Man Lymphocytes # (Manual) Monocytes # (Manual) Eosinophils # (Manual) Basophils # (Manual) PT INR Fibrinogen dRVVT Confirm Interp Factor V Activity POC ABG pH POC ABG pCO2 POC ABG pO2 ABG pO2 ABG HCO3 ABG Base Excess ABG Hemoglobin Oxyhemoglobin Sodium Potassium Chloride Carbon Dioxide BUN 51 H Creatinine Glucose 117 H POC Glucose 136 H Lactic Acid Calcium Ionized Calcium Phosphorus Magnesium Direct Bilirubin AST ALT Alkaline Phosphatase Lactate Dehydrogenase Troponin T C-Reactive Protein Total Protein Albumin Prealbumin Triglycerides Cholesterol LDL Cholesterol Direct HDL Cholesterol 25-OH Vitamin D Total PTH Intact Urine pH Urine WBC (Auto) Urine Creatinine Urine Total Protein Fluid Total Protein Vancomycin Trough Rheumatoid Factor Complement C4 Miscellaneous Test Crossmatch 12/09/16 12/09/16 12/09/16 12:29 17:52 23:10 WBC RBC Hgb Hct MCV MCH MCHC RDW Plt Count Lymph % (Auto) [place] % (Auto) Lymph # [place] # Baso # Seg Neutrophils % Seg Neuts % (Manual) Lymphocytes % (Manual) Monocytes % (Manual) Eosinophils % (Manual) Basophils % (Manual) Nucleated RBC % Seg Neutrophils # Seg Neutrophils # Man Lymphocytes # (Manual) Monocytes # (Manual) Eosinophils # (Manual) Basophils # (Manual) PT INR Fibrinogen dRVVT Confirm Interp Factor V Activity POC ABG pH POC ABG pCO2 POC ABG pO2 ABG pO2 ABG HCO3 ABG Base Excess ABG Hemoglobin Oxyhemoglobin Sodium Potassium Chloride Carbon Dioxide BUN Creatinine Glucose POC Glucose 139 H 140 H 129 H Lactic Acid Calcium Ionized Calcium Phosphorus Magnesium Direct Bilirubin AST ALT Alkaline Phosphatase Lactate Dehydrogenase Troponin T C-Reactive Protein Total Protein Albumin Prealbumin Triglycerides Cholesterol LDL Cholesterol Direct HDL Cholesterol 25-OH Vitamin D Total PTH Intact Urine pH Urine WBC (Auto) Urine Creatinine Urine Total Protein Fluid Total Protein Vancomycin Trough Rheumatoid Factor Complement C4 Miscellaneous Test Crossmatch 12/10/16 12/10/16 12/10/16 05:00 05:00 06:54 WBC 15.7 H RBC 2.87 L Hgb 8.2 L Hct 24.4 L MCV MCH MCHC RDW 17.2 H Plt Count Lymph % (Auto) [place] % (Auto) 8.3 H Lymph # [place] # 1.3 H Baso # Seg Neutrophils % 72.8 H Seg Neuts % (Manual) Lymphocytes % (Manual) Monocytes % (Manual) Eosinophils % (Manual) Basophils % (Manual) Nucleated RBC % Seg Neutrophils # 11.4 H Seg Neutrophils # Man Lymphocytes # (Manual) Monocytes # (Manual) Eosinophils # (Manual) Basophils # (Manual) PT INR Fibrinogen dRVVT Confirm Interp Factor V Activity POC ABG pH POC ABG pCO2 POC ABG pO2 ABG pO2 ABG HCO3 ABG Base Excess ABG Hemoglobin Oxyhemoglobin Sodium Potassium Chloride Carbon Dioxide BUN 64 H Creatinine 1.4 H Glucose 134 H POC Glucose 154 H Lactic Acid Calcium Ionized Calcium Phosphorus Magnesium Direct Bilirubin AST ALT Alkaline Phosphatase Lactate Dehydrogenase Troponin T C-Reactive Protein Total Protein Albumin Prealbumin Triglycerides Cholesterol LDL Cholesterol Direct HDL Cholesterol 25-OH Vitamin D Total PTH Intact Urine pH Urine WBC (Auto) Urine Creatinine Urine Total Protein Fluid Total Protein Vancomycin Trough Rheumatoid Factor Complement C4 Miscellaneous Test Crossmatch 12/10/16 12/10/16 12/10/16 11:58 17:29 23:52 WBC RBC Hgb Hct MCV MCH MCHC RDW Plt Count Lymph % (Auto) [place] % (Auto) Lymph # [place] # Baso # Seg Neutrophils % Seg Neuts % (Manual) Lymphocytes % (Manual) Monocytes % (Manual) Eosinophils % (Manual) Basophils % (Manual) Nucleated RBC % Seg Neutrophils # Seg Neutrophils # Man Lymphocytes # (Manual) Monocytes # (Manual) Eosinophils # (Manual) Basophils # (Manual) PT INR Fibrinogen dRVVT Confirm Interp Factor V Activity POC ABG pH POC ABG pCO2 POC ABG pO2 ABG pO2 ABG HCO3 ABG Base Excess ABG Hemoglobin Oxyhemoglobin Sodium Potassium Chloride Carbon Dioxide BUN Creatinine Glucose POC Glucose 144 H 163 H 125 H Lactic Acid Calcium Ionized Calcium Phosphorus Magnesium Direct Bilirubin AST ALT Alkaline Phosphatase Lactate Dehydrogenase Troponin T C-Reactive Protein Total Protein Albumin Prealbumin Triglycerides Cholesterol LDL Cholesterol Direct HDL Cholesterol 25-OH Vitamin D Total PTH Intact Urine pH Urine WBC (Auto) Urine Creatinine Urine Total Protein Fluid Total Protein Vancomycin Trough Rheumatoid Factor Complement C4 Miscellaneous Test Crossmatch 12/11/16 12/11/16 12/11/16 05:38 06:30 06:30 WBC 14.4 H RBC 2.76 L Hgb 7.7 L Hct 23.4 L MCV MCH MCHC RDW 17.2 H Plt Count Lymph % (Auto) [place] % (Auto) 8.8 H Lymph # [place] # 1.3 H Baso # Seg Neutrophils % 72.5 H Seg Neuts % (Manual) Lymphocytes % (Manual) Monocytes % (Manual) Eosinophils % (Manual) Basophils % (Manual) Nucleated RBC % Seg Neutrophils # 10.5 H Seg Neutrophils # Man Lymphocytes # (Manual) Monocytes # (Manual) Eosinophils # (Manual) Basophils # (Manual) PT INR Fibrinogen dRVVT Confirm Interp Factor V Activity POC ABG pH POC ABG pCO2 POC ABG pO2 ABG pO2 ABG HCO3 ABG Base Excess ABG Hemoglobin Oxyhemoglobin Sodium Potassium Chloride Carbon Dioxide BUN 43 H Creatinine Glucose 124 H POC Glucose 141 H Lactic Acid Calcium 8.3 L Ionized Calcium Phosphorus Magnesium 1.60 L Direct Bilirubin AST ALT Alkaline Phosphatase Lactate Dehydrogenase Troponin T C-Reactive Protein Total Protein Albumin Prealbumin Triglycerides Cholesterol LDL Cholesterol Direct HDL Cholesterol 25-OH Vitamin D Total PTH Intact Urine pH Urine WBC (Auto) Urine Creatinine Urine Total Protein Fluid Total Protein Vancomycin Trough Rheumatoid Factor Complement C4 Miscellaneous Test Crossmatch 12/11/16 12/11/16 12/11/16 11:15 17:59 23:48 WBC RBC Hgb Hct MCV MCH MCHC RDW Plt Count Lymph % (Auto) [place] % (Auto) Lymph # [place] # Baso # Seg Neutrophils % Seg Neuts % (Manual) Lymphocytes % (Manual) Monocytes % (Manual) Eosinophils % (Manual) Basophils % (Manual) Nucleated RBC % Seg Neutrophils # Seg Neutrophils # Man Lymphocytes # (Manual) Monocytes # (Manual) Eosinophils # (Manual) Basophils # (Manual) PT INR Fibrinogen dRVVT Confirm Interp Factor V Activity POC ABG pH POC ABG pCO2 POC ABG pO2 ABG pO2 ABG HCO3 ABG Base Excess ABG Hemoglobin Oxyhemoglobin Sodium Potassium Chloride Carbon Dioxide BUN Creatinine Glucose POC Glucose 188 H 106 H 119 H Lactic Acid Calcium Ionized Calcium Phosphorus Magnesium Direct Bilirubin AST ALT Alkaline Phosphatase Lactate Dehydrogenase Troponin T C-Reactive Protein Total Protein Albumin Prealbumin Triglycerides Cholesterol LDL Cholesterol Direct HDL Cholesterol 25-OH Vitamin D Total PTH Intact Urine pH Urine WBC (Auto) Urine Creatinine Urine Total Protein Fluid Total Protein Vancomycin Trough Rheumatoid Factor Complement C4 Miscellaneous Test Crossmatch 12/12/16 12/12/16 12/12/16 05:00 06:01 12:20 WBC 16.7 H RBC 2.87 L Hgb 8.0 L Hct 24.2 L MCV MCH MCHC RDW 17.6 H Plt Count Lymph % (Auto) [place] % (Auto) Lymph # [place] # 1.2 H Baso # Seg Neutrophils % 75.3 H Seg Neuts % (Manual) Lymphocytes % (Manual) Monocytes % (Manual) Eosinophils % (Manual) Basophils % (Manual) Nucleated RBC % Seg Neutrophils # 12.6 H Seg Neutrophils # Man Lymphocytes # (Manual) Monocytes # (Manual) Eosinophils # (Manual) Basophils # (Manual) PT INR Fibrinogen dRVVT Confirm Interp Factor V Activity POC ABG pH POC ABG pCO2 POC ABG pO2 ABG pO2 ABG HCO3 ABG Base Excess ABG Hemoglobin Oxyhemoglobin Sodium Potassium Chloride Carbon Dioxide BUN Creatinine Glucose POC Glucose 134 H 149 H Lactic Acid Calcium Ionized Calcium Phosphorus Magnesium Direct Bilirubin AST ALT Alkaline Phosphatase Lactate Dehydrogenase Troponin T C-Reactive Protein Total Protein Albumin Prealbumin Triglycerides Cholesterol LDL Cholesterol Direct HDL Cholesterol 25-OH Vitamin D Total PTH Intact Urine pH Urine WBC (Auto) Urine Creatinine Urine Total Protein Fluid Total Protein Vancomycin Trough Rheumatoid Factor Complement C4 Miscellaneous Test Crossmatch 12/12/16 12/12/16 12/12/16 17:38 23:01 Unknown WBC RBC Hgb Hct MCV MCH MCHC RDW Plt Count Lymph % (Auto) [place] % (Auto) Lymph # [place] # Baso # Seg Neutrophils % Seg Neuts % (Manual) Lymphocytes % (Manual) Monocytes % (Manual) Eosinophils % (Manual) Basophils % (Manual) Nucleated RBC % Seg Neutrophils # Seg Neutrophils # Man Lymphocytes # (Manual) Monocytes # (Manual) Eosinophils # (Manual) Basophils # (Manual) PT INR Fibrinogen dRVVT Confirm Interp Factor V Activity POC ABG pH POC ABG pCO2 POC ABG pO2 ABG pO2 ABG HCO3 ABG Base Excess ABG Hemoglobin Oxyhemoglobin Sodium Potassium Chloride Carbon Dioxide BUN 60 H Creatinine 1.3 H Glucose 126 H POC Glucose 127 H 144 H Lactic Acid Calcium Ionized Calcium Phosphorus Magnesium Direct Bilirubin AST ALT Alkaline Phosphatase Lactate Dehydrogenase Troponin T C-Reactive Protein Total Protein Albumin Prealbumin Triglycerides Cholesterol LDL Cholesterol Direct HDL Cholesterol 25-OH Vitamin D Total PTH Intact Urine pH Urine WBC (Auto) Urine Creatinine Urine Total Protein Fluid Total Protein Vancomycin Trough Rheumatoid Factor Complement C4 Miscellaneous Test Crossmatch 12/13/16 12/13/16 12/13/16 04:00 04:00 05:19 WBC 18.7 H RBC 2.89 L Hgb 8.3 L Hct 24.6 L MCV MCH MCHC RDW 17.5 H Plt Count Lymph % (Auto) [place] % (Auto) Lymph # [place] # 1.3 H Baso # Seg Neutrophils % 71.5 H Seg Neuts % (Manual) Lymphocytes % (Manual) Monocytes % (Manual) Eosinophils % (Manual) Basophils % (Manual) Nucleated RBC % Seg Neutrophils # 13.4 H Seg Neutrophils # Man Lymphocytes # (Manual) Monocytes # (Manual) Eosinophils # (Manual) Basophils # (Manual) PT INR Fibrinogen dRVVT Confirm Interp Factor V Activity POC ABG pH POC ABG pCO2 POC ABG pO2 ABG pO2 ABG HCO3 ABG Base Excess ABG Hemoglobin Oxyhemoglobin Sodium Potassium Chloride Carbon Dioxide BUN 73 H Creatinine 1.5 H Glucose 141 H POC Glucose 171 H Lactic Acid Calcium Ionized Calcium Phosphorus Magnesium Direct Bilirubin AST ALT Alkaline Phosphatase Lactate Dehydrogenase Troponin T C-Reactive Protein Total Protein Albumin Prealbumin Triglycerides Cholesterol LDL Cholesterol Direct HDL Cholesterol 25-OH Vitamin D Total PTH Intact Urine pH Urine WBC (Auto) Urine Creatinine Urine Total Protein Fluid Total Protein Vancomycin Trough Rheumatoid Factor Complement C4 Miscellaneous Test Crossmatch 12/13/16 12/13/16 12/14/16 12:28 16:48 00:01 WBC RBC Hgb Hct MCV MCH MCHC RDW Plt Count Lymph % (Auto) [place] % (Auto) Lymph # [place] # Baso # Seg Neutrophils % Seg Neuts % (Manual) Lymphocytes % (Manual) Monocytes % (Manual) Eosinophils % (Manual) Basophils % (Manual) Nucleated RBC % Seg Neutrophils # Seg Neutrophils # Man Lymphocytes # (Manual) Monocytes # (Manual) Eosinophils # (Manual) Basophils # (Manual) PT INR Fibrinogen dRVVT Confirm Interp Factor V Activity POC ABG pH POC ABG pCO2 POC ABG pO2 ABG pO2 ABG HCO3 ABG Base Excess ABG Hemoglobin Oxyhemoglobin Sodium Potassium Chloride Carbon Dioxide BUN Creatinine Glucose POC Glucose 206 H 173 H 139 H Lactic Acid Calcium Ionized Calcium Phosphorus Magnesium Direct Bilirubin AST ALT Alkaline Phosphatase Lactate Dehydrogenase Troponin T C-Reactive Protein Total Protein Albumin Prealbumin Triglycerides Cholesterol LDL Cholesterol Direct HDL Cholesterol 25-OH Vitamin D Total PTH Intact Urine pH Urine WBC (Auto) Urine Creatinine Urine Total Protein Fluid Total Protein Vancomycin Trough Rheumatoid Factor Complement C4 Miscellaneous Test Crossmatch 12/14/16 12/14/16 12/14/16 05:16 06:10 11:17 WBC RBC Hgb Hct MCV MCH MCHC RDW Plt Count Lymph % (Auto) [place] % (Auto) Lymph # [place] # Baso # Seg Neutrophils % Seg Neuts % (Manual) Lymphocytes % (Manual) Monocytes % (Manual) Eosinophils % (Manual) Basophils % (Manual) Nucleated RBC % Seg Neutrophils # Seg Neutrophils # Man Lymphocytes # (Manual) Monocytes # (Manual) Eosinophils # (Manual) Basophils # (Manual) PT INR Fibrinogen dRVVT Confirm Interp Factor V Activity POC ABG pH POC ABG pCO2 POC ABG pO2 ABG pO2 ABG HCO3 ABG Base Excess ABG Hemoglobin Oxyhemoglobin Sodium Potassium Chloride Carbon Dioxide BUN 57 H Creatinine 1.4 H Glucose 135 H POC Glucose 158 H 137 H Lactic Acid Calcium Ionized Calcium Phosphorus Magnesium Direct Bilirubin AST ALT Alkaline Phosphatase Lactate Dehydrogenase Troponin T C-Reactive Protein Total Protein Albumin Prealbumin Triglycerides Cholesterol LDL Cholesterol Direct HDL Cholesterol 25-OH Vitamin D Total PTH Intact Urine pH Urine WBC (Auto) Urine Creatinine Urine Total Protein Fluid Total Protein Vancomycin Trough Rheumatoid Factor Complement C4 Miscellaneous Test Crossmatch 12/14/16 12/14/16 12/15/16 17:52 23:27 04:00 WBC RBC Hgb Hct MCV MCH MCHC RDW Plt Count Lymph % (Auto) [place] % (Auto) Lymph # [place] # Baso # Seg Neutrophils % Seg Neuts % (Manual) Lymphocytes % (Manual) Monocytes % (Manual) Eosinophils % (Manual) Basophils % (Manual) Nucleated RBC % Seg Neutrophils # Seg Neutrophils # Man Lymphocytes # (Manual) Monocytes # (Manual) Eosinophils # (Manual) Basophils # (Manual) PT INR Fibrinogen dRVVT Confirm Interp Factor V Activity POC ABG pH POC ABG pCO2 POC ABG pO2 ABG pO2 ABG HCO3 ABG Base Excess ABG Hemoglobin Oxyhemoglobin Sodium Potassium Chloride 97.9 L Carbon Dioxide BUN 75 H Creatinine 1.6 H Glucose 122 H POC Glucose 149 H 163 H Lactic Acid Calcium Ionized Calcium Phosphorus 5.20 H Magnesium Direct Bilirubin AST ALT Alkaline Phosphatase Lactate Dehydrogenase Troponin T C-Reactive Protein Total Protein Albumin Prealbumin Triglycerides Cholesterol LDL Cholesterol Direct HDL Cholesterol 25-OH Vitamin D Total PTH Intact Urine pH Urine WBC (Auto) Urine Creatinine Urine Total Protein Fluid Total Protein Vancomycin Trough Rheumatoid Factor Complement C4 Miscellaneous Test Crossmatch 12/15/16 12/15/16 12/15/16 05:50 11:24 17:01 WBC RBC Hgb Hct MCV MCH MCHC RDW Plt Count Lymph % (Auto) [place] % (Auto) Lymph # [place] # Baso # Seg Neutrophils % Seg Neuts % (Manual) Lymphocytes % (Manual) Monocytes % (Manual) Eosinophils % (Manual) Basophils % (Manual) Nucleated RBC % Seg Neutrophils # Seg Neutrophils # Man Lymphocytes # (Manual) Monocytes # (Manual) Eosinophils # (Manual) Basophils # (Manual) PT INR Fibrinogen dRVVT Confirm Interp Factor V Activity POC ABG pH POC ABG pCO2 POC ABG pO2 ABG pO2 ABG HCO3 ABG Base Excess ABG Hemoglobin Oxyhemoglobin Sodium Potassium Chloride Carbon Dioxide BUN Creatinine Glucose POC Glucose 150 H 146 H 167 H Lactic Acid Calcium Ionized Calcium Phosphorus Magnesium Direct Bilirubin AST ALT Alkaline Phosphatase Lactate Dehydrogenase Troponin T C-Reactive Protein Total Protein Albumin Prealbumin Triglycerides Cholesterol LDL Cholesterol Direct HDL Cholesterol 25-OH Vitamin D Total PTH Intact Urine pH Urine WBC (Auto) Urine Creatinine Urine Total Protein Fluid Total Protein Vancomycin Trough Rheumatoid Factor Complement C4 Miscellaneous Test Crossmatch 12/15/16 12/16/16 12/16/16 23:34 05:25 11:24 WBC RBC Hgb Hct MCV MCH MCHC RDW Plt Count Lymph % (Auto) [place] % (Auto) Lymph # [place] # Baso # Seg Neutrophils % Seg Neuts % (Manual) Lymphocytes % (Manual) Monocytes % (Manual) Eosinophils % (Manual) Basophils % (Manual) Nucleated RBC % Seg Neutrophils # Seg Neutrophils # Man Lymphocytes # (Manual) Monocytes # (Manual) Eosinophils # (Manual) Basophils # (Manual) PT INR Fibrinogen dRVVT Confirm Interp Factor V Activity POC ABG pH POC ABG pCO2 POC ABG pO2 ABG pO2 ABG HCO3 ABG Base Excess ABG Hemoglobin Oxyhemoglobin Sodium Potassium Chloride Carbon Dioxide BUN Creatinine Glucose POC Glucose 127 H 139 H 165 H Lactic Acid Calcium Ionized Calcium Phosphorus Magnesium Direct Bilirubin AST ALT Alkaline Phosphatase Lactate Dehydrogenase Troponin T C-Reactive Protein Total Protein Albumin Prealbumin Triglycerides Cholesterol LDL Cholesterol Direct HDL Cholesterol 25-OH Vitamin D Total PTH Intact Urine pH Urine WBC (Auto) Urine Creatinine Urine Total Protein Fluid Total Protein Vancomycin Trough Rheumatoid Factor Complement C4 Miscellaneous Test Crossmatch 12/16/16 12/16/16 12/16/16 15:30 16:25 17:31 WBC 17.8 H RBC 2.38 L Hgb 6.4 L Hct 20.3 L MCV MCH 27 L MCHC RDW 17.4 H Plt Count Lymph % (Auto) [place] % (Auto) Lymph # [place] # Baso # Seg Neutrophils % Seg Neuts % (Manual) Lymphocytes % (Manual) Monocytes % (Manual) 10.0 H Eosinophils % (Manual) Basophils % (Manual) Nucleated RBC % Seg Neutrophils # Seg Neutrophils # Man 8.5 H Lymphocytes # (Manual) Monocytes # (Manual) 1.8 H Eosinophils # (Manual) Basophils # (Manual) PT INR Fibrinogen dRVVT Confirm Interp Factor V Activity POC ABG pH POC ABG pCO2 POC ABG pO2 ABG pO2 ABG HCO3 ABG Base Excess ABG Hemoglobin Oxyhemoglobin Sodium Potassium Chloride Carbon Dioxide BUN Creatinine Glucose POC Glucose 176 H Lactic Acid Calcium Ionized Calcium Phosphorus Magnesium Direct Bilirubin AST ALT Alkaline Phosphatase Lactate Dehydrogenase Troponin T C-Reactive Protein Total Protein Albumin Prealbumin Triglycerides Cholesterol LDL Cholesterol Direct HDL Cholesterol 25-OH Vitamin D Total PTH Intact Urine pH Urine WBC (Auto) Urine Creatinine Urine Total Protein Fluid Total Protein Vancomycin Trough Rheumatoid Factor Complement C4 Miscellaneous Test Crossmatch See Detail 12/17/16 12/17/16 12/17/16 00:14 04:00 05:00 WBC 20.0 H RBC 2.99 L Hgb 8.5 L Hct 25.7 L MCV MCH MCHC RDW 17.2 H Plt Count Lymph % (Auto) [place] % (Auto) Lymph # [place] # Baso # Seg Neutrophils % Seg Neuts % (Manual) Lymphocytes % (Manual) Monocytes % (Manual) Eosinophils % (Manual) Basophils % (Manual) Nucleated RBC % Seg Neutrophils # Seg Neutrophils # Man Lymphocytes # (Manual) Monocytes # (Manual) Eosinophils # (Manual) Basophils # (Manual) PT INR Fibrinogen dRVVT Confirm Interp Factor V Activity POC ABG pH POC ABG pCO2 POC ABG pO2 ABG pO2 ABG HCO3 ABG Base Excess ABG Hemoglobin Oxyhemoglobin Sodium Potassium Chloride 97.7 L Carbon Dioxide BUN 73 H Creatinine 1.7 H Glucose 136 H POC Glucose 148 H Lactic Acid Calcium Ionized Calcium Phosphorus 2.20 L Magnesium 2.70 H Direct Bilirubin AST ALT Alkaline Phosphatase Lactate Dehydrogenase Troponin T C-Reactive Protein Total Protein Albumin Prealbumin Triglycerides Cholesterol LDL Cholesterol Direct HDL Cholesterol 25-OH Vitamin D Total PTH Intact Urine pH Urine WBC (Auto) Urine Creatinine Urine Total Protein Fluid Total Protein Vancomycin Trough Rheumatoid Factor Complement C4 Miscellaneous Test Crossmatch 12/17/16 12/17/16 12/17/16 05:39 12:50 16:32 WBC RBC Hgb Hct MCV MCH MCHC RDW Plt Count Lymph % (Auto) [place] % (Auto) Lymph # [place] # Baso # Seg Neutrophils % Seg Neuts % (Manual) Lymphocytes % (Manual) Monocytes % (Manual) Eosinophils % (Manual) Basophils % (Manual) Nucleated RBC % Seg Neutrophils # Seg Neutrophils # Man Lymphocytes # (Manual) Monocytes # (Manual) Eosinophils # (Manual) Basophils # (Manual) PT INR Fibrinogen dRVVT Confirm Interp Factor V Activity POC ABG pH POC ABG pCO2 POC ABG pO2 ABG pO2 ABG HCO3 ABG Base Excess ABG Hemoglobin Oxyhemoglobin Sodium Potassium Chloride Carbon Dioxide BUN Creatinine Glucose POC Glucose 162 H 146 H 169 H Lactic Acid Calcium Ionized Calcium Phosphorus Magnesium Direct Bilirubin AST ALT Alkaline Phosphatase Lactate Dehydrogenase Troponin T C-Reactive Protein Total Protein Albumin Prealbumin Triglycerides Cholesterol LDL Cholesterol Direct HDL Cholesterol 25-OH Vitamin D Total PTH Intact Urine pH Urine WBC (Auto) Urine Creatinine Urine Total Protein Fluid Total Protein Vancomycin Trough Rheumatoid Factor Complement C4 Miscellaneous Test Crossmatch 12/17/16 12/18/16 12/18/16 23:57 05:00 05:32 WBC RBC Hgb Hct MCV MCH MCHC RDW Plt Count Lymph % (Auto) [place] % (Auto) Lymph # [place] # Baso # Seg Neutrophils % Seg Neuts % (Manual) Lymphocytes % (Manual) Monocytes % (Manual) Eosinophils % (Manual) Basophils % (Manual) Nucleated RBC % Seg Neutrophils # Seg Neutrophils # Man Lymphocytes # (Manual) Monocytes # (Manual) Eosinophils # (Manual) Basophils # (Manual) PT INR Fibrinogen dRVVT Confirm Interp Factor V Activity POC ABG pH POC ABG pCO2 POC ABG pO2 ABG pO2 ABG HCO3 ABG Base Excess ABG Hemoglobin Oxyhemoglobin Sodium Potassium Chloride 97.0 L Carbon Dioxide BUN 63 H Creatinine 1.4 H Glucose 174 H POC Glucose 145 H 201 H Lactic Acid Calcium Ionized Calcium Phosphorus 1.70 L D Magnesium Direct Bilirubin AST ALT Alkaline Phosphatase 257 H Lactate Dehydrogenase Troponin T C-Reactive Protein Total Protein 5.9 L Albumin 1.8 L Prealbumin Triglycerides Cholesterol LDL Cholesterol Direct HDL Cholesterol 25-OH Vitamin D Total PTH Intact Urine pH Urine WBC (Auto) Urine Creatinine Urine Total Protein Fluid Total Protein Vancomycin Trough Rheumatoid Factor Complement C4 Miscellaneous Test Crossmatch 12/18/16 12/18/16 12/18/16 11:43 16:52 23:52 WBC RBC Hgb Hct MCV MCH MCHC RDW Plt Count Lymph % (Auto) [place] % (Auto) Lymph # [place] # Baso # Seg Neutrophils % Seg Neuts % (Manual) Lymphocytes % (Manual) Monocytes % (Manual) Eosinophils % (Manual) Basophils % (Manual) Nucleated RBC % Seg Neutrophils # Seg Neutrophils # Man Lymphocytes # (Manual) Monocytes # (Manual) Eosinophils # (Manual) Basophils # (Manual) PT INR Fibrinogen dRVVT Confirm Interp Factor V Activity POC ABG pH POC ABG pCO2 POC ABG pO2 ABG pO2 ABG HCO3 ABG Base Excess ABG Hemoglobin Oxyhemoglobin Sodium Potassium Chloride Carbon Dioxide BUN Creatinine Glucose POC Glucose 177 H 110 H 162 H Lactic Acid Calcium Ionized Calcium Phosphorus Magnesium Direct Bilirubin AST ALT Alkaline Phosphatase Lactate Dehydrogenase Troponin T C-Reactive Protein Total Protein Albumin Prealbumin Triglycerides Cholesterol LDL Cholesterol Direct HDL Cholesterol 25-OH Vitamin D Total PTH Intact Urine pH Urine WBC (Auto) Urine Creatinine Urine Total Protein Fluid Total Protein Vancomycin Trough Rheumatoid Factor Complement C4 Miscellaneous Test Crossmatch 12/19/16 12/19/16 12/19/16 05:02 05:24 09:30 WBC 20.1 H RBC 2.73 L Hgb 7.6 L Hct 23.6 L MCV MCH MCHC RDW 17.6 H Plt Count Lymph % (Auto) [place] % (Auto) Lymph # [place] # Baso # Seg Neutrophils % Seg Neuts % (Manual) Lymphocytes % (Manual) 13.0 L Monocytes % (Manual) Eosinophils % (Manual) Basophils % (Manual) Nucleated RBC % 1.0 H Seg Neutrophils # Seg Neutrophils # Man 12.9 H Lymphocytes # (Manual) Monocytes # (Manual) 1.4 H Eosinophils # (Manual) Basophils # (Manual) 0.2 H PT INR Fibrinogen dRVVT Confirm Interp Factor V Activity POC ABG pH POC ABG pCO2 POC ABG pO2 ABG pO2 ABG HCO3 ABG Base Excess ABG Hemoglobin Oxyhemoglobin Sodium Potassium Chloride 97.8 L Carbon Dioxide BUN 84 H Creatinine 1.6 H Glucose 133 H POC Glucose 134 H Lactic Acid Calcium Ionized Calcium Phosphorus Magnesium Direct Bilirubin AST ALT Alkaline Phosphatase Lactate Dehydrogenase Troponin T C-Reactive Protein Total Protein Albumin Prealbumin Triglycerides Cholesterol LDL Cholesterol Direct HDL Cholesterol 25-OH Vitamin D Total PTH Intact Urine pH Urine WBC (Auto) Urine Creatinine Urine Total Protein Fluid Total Protein Vancomycin Trough Rheumatoid Factor Complement C4 Miscellaneous Test Crossmatch 12/19/16 12/19/16 12/19/16 09:36 11:12 18:29 WBC RBC Hgb Hct MCV MCH MCHC RDW Plt Count Lymph % (Auto) [place] % (Auto) Lymph # [place] # Baso # Seg Neutrophils % Seg Neuts % (Manual) Lymphocytes % (Manual) Monocytes % (Manual) Eosinophils % (Manual) Basophils % (Manual) Nucleated RBC % Seg Neutrophils # Seg Neutrophils # Man Lymphocytes # (Manual) Monocytes # (Manual) Eosinophils # (Manual) Basophils # (Manual) PT INR Fibrinogen dRVVT Confirm Interp Factor V Activity POC ABG pH 7.503 H POC ABG pCO2 30.1 L POC ABG pO2 ABG pO2 ABG HCO3 ABG Base Excess ABG Hemoglobin Oxyhemoglobin Sodium Potassium Chloride Carbon Dioxide BUN Creatinine Glucose POC Glucose 138 H 156 H Lactic Acid Calcium Ionized Calcium Phosphorus Magnesium Direct Bilirubin AST ALT Alkaline Phosphatase Lactate Dehydrogenase Troponin T C-Reactive Protein Total Protein Albumin Prealbumin Triglycerides Cholesterol LDL Cholesterol Direct HDL Cholesterol 25-OH Vitamin D Total PTH Intact Urine pH Urine WBC (Auto) Urine Creatinine Urine Total Protein Fluid Total Protein Vancomycin Trough Rheumatoid Factor Complement C4 Miscellaneous Test Crossmatch 12/20/16 12/20/16 12/20/16 00:03 06:17 07:07 WBC RBC Hgb Hct MCV MCH MCHC RDW Plt Count Lymph % (Auto) [place] % (Auto) Lymph # [place] # Baso # Seg Neutrophils % Seg Neuts % (Manual) Lymphocytes % (Manual) Monocytes % (Manual) Eosinophils % (Manual) Basophils % (Manual) Nucleated RBC % Seg Neutrophils # Seg Neutrophils # Man Lymphocytes # (Manual) Monocytes # (Manual) Eosinophils # (Manual) Basophils # (Manual) PT INR Fibrinogen dRVVT Confirm Interp Factor V Activity POC ABG pH POC ABG pCO2 POC ABG pO2 ABG pO2 ABG HCO3 ABG Base Excess ABG Hemoglobin Oxyhemoglobin Sodium Potassium Chloride 97.1 L Carbon Dioxide 20 L BUN 97 H Creatinine 1.8 H Glucose 153 H POC Glucose 152 H 175 H Lactic Acid Calcium Ionized Calcium Phosphorus Magnesium Direct Bilirubin AST ALT Alkaline Phosphatase Lactate Dehydrogenase Troponin T C-Reactive Protein Total Protein Albumin Prealbumin Triglycerides Cholesterol LDL Cholesterol Direct HDL Cholesterol 25-OH Vitamin D Total PTH Intact Urine pH Urine WBC (Auto) Urine Creatinine Urine Total Protein Fluid Total Protein Vancomycin Trough Rheumatoid Factor Complement C4 Miscellaneous Test Crossmatch 12/20/16 12/20/16 12/20/16 12:00 17:42 23:53 WBC RBC Hgb Hct MCV MCH MCHC RDW Plt Count Lymph % (Auto) [place] % (Auto) Lymph # [place] # Baso # Seg Neutrophils % Seg Neuts % (Manual) Lymphocytes % (Manual) Monocytes % (Manual) Eosinophils % (Manual) Basophils % (Manual) Nucleated RBC % Seg Neutrophils # Seg Neutrophils # Man Lymphocytes # (Manual) Monocytes # (Manual) Eosinophils # (Manual) Basophils # (Manual) PT INR Fibrinogen dRVVT Confirm Interp Factor V Activity POC ABG pH POC ABG pCO2 POC ABG pO2 ABG pO2 ABG HCO3 ABG Base Excess ABG Hemoglobin Oxyhemoglobin Sodium Potassium Chloride Carbon Dioxide BUN Creatinine Glucose POC Glucose 141 H 156 H 132 H Lactic Acid Calcium Ionized Calcium Phosphorus Magnesium Direct Bilirubin AST ALT Alkaline Phosphatase Lactate Dehydrogenase Troponin T C-Reactive Protein Total Protein Albumin Prealbumin Triglycerides Cholesterol LDL Cholesterol Direct HDL Cholesterol 25-OH Vitamin D Total PTH Intact Urine pH Urine WBC (Auto) Urine Creatinine Urine Total Protein Fluid Total Protein Vancomycin Trough Rheumatoid Factor Complement C4 Miscellaneous Test Crossmatch 12/21/16 12/21/16 12/21/16 05:49 08:50 12:19 WBC RBC Hgb Hct MCV MCH MCHC RDW Plt Count Lymph % (Auto) [place] % (Auto) Lymph # [place] # Baso # Seg Neutrophils % Seg Neuts % (Manual) Lymphocytes % (Manual) Monocytes % (Manual) Eosinophils % (Manual) Basophils % (Manual) Nucleated RBC % Seg Neutrophils # Seg Neutrophils # Man Lymphocytes # (Manual) Monocytes # (Manual) Eosinophils # (Manual) Basophils # (Manual) PT INR Fibrinogen dRVVT Confirm Interp Factor V Activity POC ABG pH POC ABG pCO2 POC ABG pO2 ABG pO2 ABG HCO3 ABG Base Excess ABG Hemoglobin Oxyhemoglobin Sodium Potassium 5.2 H D Chloride Carbon Dioxide BUN 63 H Creatinine Glucose 122 H POC Glucose 132 H 136 H Lactic Acid Calcium 8.3 L Ionized Calcium Phosphorus Magnesium Direct Bilirubin AST ALT Alkaline Phosphatase Lactate Dehydrogenase Troponin T C-Reactive Protein Total Protein Albumin Prealbumin Triglycerides Cholesterol LDL Cholesterol Direct HDL Cholesterol 25-OH Vitamin D Total PTH Intact Urine pH Urine WBC (Auto) Urine Creatinine Urine Total Protein Fluid Total Protein Vancomycin Trough Rheumatoid Factor Complement C4 Miscellaneous Test Crossmatch 12/21/16 12/21/16 12/22/16 17:22 23:58 05:49 WBC RBC Hgb Hct MCV MCH MCHC RDW Plt Count Lymph % (Auto) [place] % (Auto) Lymph # [place] # Baso # Seg Neutrophils % Seg Neuts % (Manual) Lymphocytes % (Manual) Monocytes % (Manual) Eosinophils % (Manual) Basophils % (Manual) Nucleated RBC % Seg Neutrophils # Seg Neutrophils # Man Lymphocytes # (Manual) Monocytes # (Manual) Eosinophils # (Manual) Basophils # (Manual) PT INR Fibrinogen dRVVT Confirm Interp Factor V Activity POC ABG pH POC ABG pCO2 POC ABG pO2 ABG pO2 ABG HCO3 ABG Base Excess ABG Hemoglobin Oxyhemoglobin Sodium Potassium Chloride Carbon Dioxide BUN Creatinine Glucose POC Glucose 135 H 149 H 140 H Lactic Acid Calcium Ionized Calcium Phosphorus Magnesium Direct Bilirubin AST ALT Alkaline Phosphatase Lactate Dehydrogenase Troponin T C-Reactive Protein Total Protein Albumin Prealbumin Triglycerides Cholesterol LDL Cholesterol Direct HDL Cholesterol 25-OH Vitamin D Total PTH Intact Urine pH Urine WBC (Auto) Urine Creatinine Urine Total Protein Fluid Total Protein Vancomycin Trough Rheumatoid Factor Complement C4 Miscellaneous Test Crossmatch 12/22/16 12/22/16 12/22/16 06:10 11:17 17:31 WBC RBC Hgb Hct MCV MCH MCHC RDW Plt Count Lymph % (Auto) [place] % (Auto) Lymph # [place] # Baso # Seg Neutrophils % Seg Neuts % (Manual) Lymphocytes % (Manual) Monocytes % (Manual) Eosinophils % (Manual) Basophils % (Manual) Nucleated RBC % Seg Neutrophils # Seg Neutrophils # Man Lymphocytes # (Manual) Monocytes # (Manual) Eosinophils # (Manual) Basophils # (Manual) PT INR Fibrinogen dRVVT Confirm Interp Factor V Activity POC ABG pH POC ABG pCO2 POC ABG pO2 ABG pO2 ABG HCO3 ABG Base Excess ABG Hemoglobin Oxyhemoglobin Sodium Potassium Chloride Carbon Dioxide BUN 76 H Creatinine 1.5 H Glucose 241 H POC Glucose 193 H 148 H Lactic Acid Calcium Ionized Calcium Phosphorus Magnesium Direct Bilirubin AST ALT Alkaline Phosphatase Lactate Dehydrogenase Troponin T C-Reactive Protein Total Protein Albumin Prealbumin Triglycerides Cholesterol LDL Cholesterol Direct HDL Cholesterol 25-OH Vitamin D Total PTH Intact Urine pH Urine WBC (Auto) Urine Creatinine Urine Total Protein Fluid Total Protein Vancomycin Trough Rheumatoid Factor Complement C4 Miscellaneous Test Crossmatch 12/22/16 12/23/16 12/23/16 23:58 05:00 05:26 WBC RBC Hgb Hct MCV MCH MCHC RDW Plt Count Lymph % (Auto) [place] % (Auto) Lymph # [place] # Baso # Seg Neutrophils % Seg Neuts % (Manual) Lymphocytes % (Manual) Monocytes % (Manual) Eosinophils % (Manual) Basophils % (Manual) Nucleated RBC % Seg Neutrophils # Seg Neutrophils # Man Lymphocytes # (Manual) Monocytes # (Manual) Eosinophils # (Manual) Basophils # (Manual) PT INR Fibrinogen dRVVT Confirm Interp Factor V Activity POC ABG pH POC ABG pCO2 POC ABG pO2 ABG pO2 ABG HCO3 ABG Base Excess ABG Hemoglobin Oxyhemoglobin Sodium Potassium Chloride Carbon Dioxide BUN 49 H Creatinine Glucose 143 H POC Glucose 165 H 154 H Lactic Acid Calcium 8.2 L Ionized Calcium Phosphorus Magnesium 1.60 L Direct Bilirubin AST ALT Alkaline Phosphatase Lactate Dehydrogenase Troponin T C-Reactive Protein Total Protein Albumin Prealbumin Triglycerides Cholesterol LDL Cholesterol Direct HDL Cholesterol 25-OH Vitamin D Total PTH Intact Urine pH Urine WBC (Auto) Urine Creatinine Urine Total Protein Fluid Total Protein Vancomycin Trough Rheumatoid Factor Complement C4 Miscellaneous Test Crossmatch 12/23/16 12/23/16 12/24/16 12:35 17:01 00:01 WBC RBC Hgb Hct MCV MCH MCHC RDW Plt Count Lymph % (Auto) [place] % (Auto) Lymph # [place] # Baso # Seg Neutrophils % Seg Neuts % (Manual) Lymphocytes % (Manual) Monocytes % (Manual) Eosinophils % (Manual) Basophils % (Manual) Nucleated RBC % Seg Neutrophils # Seg Neutrophils # Man Lymphocytes # (Manual) Monocytes # (Manual) Eosinophils # (Manual) Basophils # (Manual) PT INR Fibrinogen dRVVT Confirm Interp Factor V Activity POC ABG pH POC ABG pCO2 POC ABG pO2 ABG pO2 ABG HCO3 ABG Base Excess ABG Hemoglobin Oxyhemoglobin Sodium Potassium Chloride Carbon Dioxide BUN Creatinine Glucose POC Glucose 164 H 149 H 135 H Lactic Acid Calcium Ionized Calcium Phosphorus Magnesium Direct Bilirubin AST ALT Alkaline Phosphatase Lactate Dehydrogenase Troponin T C-Reactive Protein Total Protein Albumin Prealbumin Triglycerides Cholesterol LDL Cholesterol Direct HDL Cholesterol 25-OH Vitamin D Total PTH Intact Urine pH Urine WBC (Auto) Urine Creatinine Urine Total Protein Fluid Total Protein Vancomycin Trough Rheumatoid Factor Complement C4 Miscellaneous Test Crossmatch 12/24/16 12/24/16 12/24/16 05:41 07:01 11:38 WBC RBC Hgb Hct MCV MCH MCHC RDW Plt Count Lymph % (Auto) [place] % (Auto) Lymph # [place] # Baso # Seg Neutrophils % Seg Neuts % (Manual) Lymphocytes % (Manual) Monocytes % (Manual) Eosinophils % (Manual) Basophils % (Manual) Nucleated RBC % Seg Neutrophils # Seg Neutrophils # Man Lymphocytes # (Manual) Monocytes # (Manual) Eosinophils # (Manual) Basophils # (Manual) PT INR Fibrinogen dRVVT Confirm Interp Factor V Activity POC ABG pH POC ABG pCO2 POC ABG pO2 ABG pO2 ABG HCO3 ABG Base Excess ABG Hemoglobin Oxyhemoglobin Sodium Potassium Chloride Carbon Dioxide BUN 72 H Creatinine 1.3 H Glucose 130 H POC Glucose 132 H 156 H Lactic Acid Calcium 8.2 L Ionized Calcium Phosphorus Magnesium Direct Bilirubin AST ALT Alkaline Phosphatase Lactate Dehydrogenase Troponin T C-Reactive Protein Total Protein Albumin Prealbumin Triglycerides Cholesterol LDL Cholesterol Direct HDL Cholesterol 25-OH Vitamin D Total PTH Intact Urine pH Urine WBC (Auto) Urine Creatinine Urine Total Protein Fluid Total Protein Vancomycin Trough Rheumatoid Factor Complement C4 Miscellaneous Test Crossmatch 12/24/16 12/25/16 12/25/16 17:53 00:23 05:45 WBC RBC Hgb Hct MCV MCH MCHC RDW Plt Count Lymph % (Auto) [place] % (Auto) Lymph # [place] # Baso # Seg Neutrophils % Seg Neuts % (Manual) Lymphocytes % (Manual) Monocytes % (Manual) Eosinophils % (Manual) Basophils % (Manual) Nucleated RBC % Seg Neutrophils # Seg Neutrophils # Man Lymphocytes # (Manual) Monocytes # (Manual) Eosinophils # (Manual) Basophils # (Manual) PT INR Fibrinogen dRVVT Confirm Interp Factor V Activity POC ABG pH POC ABG pCO2 POC ABG pO2 ABG pO2 ABG HCO3 ABG Base Excess ABG Hemoglobin Oxyhemoglobin Sodium 146 H Potassium Chloride Carbon Dioxide BUN 51 H Creatinine Glucose 109 H POC Glucose 169 H 117 H Lactic Acid Calcium Ionized Calcium Phosphorus Magnesium Direct Bilirubin AST ALT Alkaline Phosphatase Lactate Dehydrogenase Troponin T C-Reactive Protein Total Protein Albumin Prealbumin Triglycerides Cholesterol LDL Cholesterol Direct HDL Cholesterol 25-OH Vitamin D Total PTH Intact Urine pH Urine WBC (Auto) Urine Creatinine Urine Total Protein Fluid Total Protein Vancomycin Trough Rheumatoid Factor Complement C4 Miscellaneous Test Crossmatch 12/25/16 12/25/16 12/25/16 06:43 11:29 17:14 WBC RBC Hgb Hct MCV MCH MCHC RDW Plt Count Lymph % (Auto) [place] % (Auto) Lymph # [place] # Baso # Seg Neutrophils % Seg Neuts % (Manual) Lymphocytes % (Manual) Monocytes % (Manual) Eosinophils % (Manual) Basophils % (Manual) Nucleated RBC % Seg Neutrophils # Seg Neutrophils # Man Lymphocytes # (Manual) Monocytes # (Manual) Eosinophils # (Manual) Basophils # (Manual) PT INR Fibrinogen dRVVT Confirm Interp Factor V Activity POC ABG pH POC ABG pCO2 POC ABG pO2 ABG pO2 ABG HCO3 ABG Base Excess ABG Hemoglobin Oxyhemoglobin Sodium Potassium Chloride Carbon Dioxide BUN Creatinine Glucose POC Glucose 117 H 128 H 120 H Lactic Acid Calcium Ionized Calcium Phosphorus Magnesium Direct Bilirubin AST ALT Alkaline Phosphatase Lactate Dehydrogenase Troponin T C-Reactive Protein Total Protein Albumin Prealbumin Triglycerides Cholesterol LDL Cholesterol Direct HDL Cholesterol 25-OH Vitamin D Total PTH Intact Urine pH Urine WBC (Auto) Urine Creatinine Urine Total Protein Fluid Total Protein Vancomycin Trough Rheumatoid Factor Complement C4 Miscellaneous Test Crossmatch 12/25/16 12/26/16 12/26/16 23:54 05:40 05:50 WBC 16.2 H RBC 2.32 L Hgb 6.2 L Hct 20.1 L MCV MCH 27 L MCHC RDW 18.6 H Plt Count Lymph % (Auto) [place] % (Auto) Lymph # [place] # Baso # Seg Neutrophils % Seg Neuts % (Manual) Lymphocytes % (Manual) Monocytes % (Manual) Eosinophils % (Manual) Basophils % (Manual) Nucleated RBC % Seg Neutrophils # Seg Neutrophils # Man Lymphocytes # (Manual) Monocytes # (Manual) Eosinophils # (Manual) Basophils # (Manual) PT INR Fibrinogen dRVVT Confirm Interp Factor V Activity POC ABG pH POC ABG pCO2 POC ABG pO2 ABG pO2 ABG HCO3 ABG Base Excess ABG Hemoglobin Oxyhemoglobin Sodium Potassium Chloride Carbon Dioxide BUN Creatinine Glucose POC Glucose 126 H 132 H Lactic Acid Calcium Ionized Calcium Phosphorus Magnesium Direct Bilirubin AST ALT Alkaline Phosphatase Lactate Dehydrogenase Troponin T C-Reactive Protein Total Protein Albumin Prealbumin Triglycerides Cholesterol LDL Cholesterol Direct HDL Cholesterol 25-OH Vitamin D Total PTH Intact Urine pH Urine WBC (Auto) Urine Creatinine Urine Total Protein Fluid Total Protein Vancomycin Trough Rheumatoid Factor Complement C4 Miscellaneous Test Crossmatch 12/26/16 12/26/16 12/26/16 05:50 12:17 12:33 WBC RBC Hgb Hct MCV MCH MCHC RDW Plt Count Lymph % (Auto) [place] % (Auto) Lymph # [place] # Baso # Seg Neutrophils % Seg Neuts % (Manual) Lymphocytes % (Manual) Monocytes % (Manual) Eosinophils % (Manual) Basophils % (Manual) Nucleated RBC % Seg Neutrophils # Seg Neutrophils # Man Lymphocytes # (Manual) Monocytes # (Manual) Eosinophils # (Manual) Basophils # (Manual) PT INR Fibrinogen dRVVT Confirm Interp Factor V Activity POC ABG pH POC ABG pCO2 POC ABG pO2 ABG pO2 ABG HCO3 ABG Base Excess ABG Hemoglobin Oxyhemoglobin Sodium Potassium Chloride Carbon Dioxide BUN 73 H Creatinine 1.3 H Glucose 113 H POC Glucose 117 H Lactic Acid Calcium Ionized Calcium Phosphorus Magnesium Direct Bilirubin AST ALT Alkaline Phosphatase Lactate Dehydrogenase Troponin T C-Reactive Protein Total Protein Albumin Prealbumin Triglycerides Cholesterol LDL Cholesterol Direct HDL Cholesterol 25-OH Vitamin D Total PTH Intact Urine pH Urine WBC (Auto) Urine Creatinine Urine Total Protein Fluid Total Protein Vancomycin Trough Rheumatoid Factor Complement C4 Miscellaneous Test Crossmatch See Detail 12/26/16 12/26/16 12/27/16 20:00 23:21 05:00 WBC RBC Hgb 8.4 L Hct 26.3 L D MCV MCH MCHC RDW Plt Count Lymph % (Auto) [place] % (Auto) Lymph # [place] # Baso # Seg Neutrophils % Seg Neuts % (Manual) Lymphocytes % (Manual) Monocytes % (Manual) Eosinophils % (Manual) Basophils % (Manual) Nucleated RBC % Seg Neutrophils # Seg Neutrophils # Man Lymphocytes # (Manual) Monocytes # (Manual) Eosinophils # (Manual) Basophils # (Manual) PT INR Fibrinogen dRVVT Confirm Interp Factor V Activity POC ABG pH POC ABG pCO2 POC ABG pO2 ABG pO2 ABG HCO3 ABG Base Excess ABG Hemoglobin Oxyhemoglobin Sodium Potassium Chloride Carbon Dioxide BUN 85 H Creatinine 1.6 H Glucose 118 H POC Glucose 124 H Lactic Acid Calcium Ionized Calcium Phosphorus 4.80 H Magnesium Direct Bilirubin AST ALT Alkaline Phosphatase Lactate Dehydrogenase Troponin T C-Reactive Protein Total Protein Albumin Prealbumin Triglycerides Cholesterol LDL Cholesterol Direct HDL Cholesterol 25-OH Vitamin D Total PTH Intact Urine pH Urine WBC (Auto) Urine Creatinine Urine Total Protein Fluid Total Protein Vancomycin Trough Rheumatoid Factor Complement C4 Miscellaneous Test Crossmatch 12/27/16 12/27/16 12/27/16 05:00 05:35 12:24 WBC RBC Hgb 7.6 L Hct 22.8 L MCV MCH MCHC RDW Plt Count Lymph % (Auto) [place] % (Auto) Lymph # [place] # Baso # Seg Neutrophils % Seg Neuts % (Manual) Lymphocytes % (Manual) Monocytes % (Manual) Eosinophils % (Manual) Basophils % (Manual) Nucleated RBC % Seg Neutrophils # Seg Neutrophils # Man Lymphocytes # (Manual) Monocytes # (Manual) Eosinophils # (Manual) Basophils # (Manual) PT INR Fibrinogen dRVVT Confirm Interp Factor V Activity POC ABG pH POC ABG pCO2 POC ABG pO2 ABG pO2 ABG HCO3 ABG Base Excess ABG Hemoglobin Oxyhemoglobin Sodium Potassium Chloride Carbon Dioxide BUN Creatinine Glucose POC Glucose 115 H 131 H Lactic Acid Calcium Ionized Calcium Phosphorus Magnesium Direct Bilirubin AST ALT Alkaline Phosphatase Lactate Dehydrogenase Troponin T C-Reactive Protein Total Protein Albumin Prealbumin Triglycerides Cholesterol LDL Cholesterol Direct HDL Cholesterol 25-OH Vitamin D Total PTH Intact Urine pH Urine WBC (Auto) Urine Creatinine Urine Total Protein Fluid Total Protein Vancomycin Trough Rheumatoid Factor Complement C4 Miscellaneous Test Crossmatch 12/27/16 12/28/16 12/28/16 17:16 00:18 04:00 WBC RBC Hgb Hct MCV MCH MCHC RDW Plt Count Lymph % (Auto) [place] % (Auto) Lymph # [place] # Baso # Seg Neutrophils % Seg Neuts % (Manual) Lymphocytes % (Manual) Monocytes % (Manual) Eosinophils % (Manual) Basophils % (Manual) Nucleated RBC % Seg Neutrophils # Seg Neutrophils # Man Lymphocytes # (Manual) Monocytes # (Manual) Eosinophils # (Manual) Basophils # (Manual) PT INR Fibrinogen dRVVT Confirm Interp Factor V Activity POC ABG pH POC ABG pCO2 POC ABG pO2 ABG pO2 ABG HCO3 ABG Base Excess ABG Hemoglobin Oxyhemoglobin Sodium Potassium 3.5 L Chloride Carbon Dioxide BUN 57 H Creatinine Glucose 118 H POC Glucose 136 H 120 H Lactic Acid Calcium 8.3 L Ionized Calcium Phosphorus Magnesium Direct Bilirubin AST ALT Alkaline Phosphatase Lactate Dehydrogenase Troponin T C-Reactive Protein Total Protein Albumin Prealbumin Triglycerides Cholesterol LDL Cholesterol Direct HDL Cholesterol 25-OH Vitamin D Total PTH Intact Urine pH Urine WBC (Auto) Urine Creatinine Urine Total Protein Fluid Total Protein Vancomycin Trough Rheumatoid Factor Complement C4 Miscellaneous Test Crossmatch 12/28/16 12/28/16 12/28/16 04:00 05:11 08:30 WBC 17.0 H RBC 2.58 L Hgb 7.1 L Hct 22.0 L MCV MCH MCHC RDW 17.6 H Plt Count Lymph % (Auto) 12.2 L [place] % (Auto) Lymph # [place] # 1.1 H Baso # Seg Neutrophils % 80.5 H Seg Neuts % (Manual) Lymphocytes % (Manual) Monocytes % (Manual) Eosinophils % (Manual) Basophils % (Manual) Nucleated RBC % Seg Neutrophils # 13.7 H Seg Neutrophils # Man Lymphocytes # (Manual) Monocytes # (Manual) Eosinophils # (Manual) Basophils # (Manual) PT 16.1 H INR 1.23 H Fibrinogen dRVVT Confirm Interp Factor V Activity POC ABG pH POC ABG pCO2 POC ABG pO2 ABG pO2 ABG HCO3 ABG Base Excess ABG Hemoglobin Oxyhemoglobin Sodium Potassium Chloride Carbon Dioxide BUN Creatinine Glucose POC Glucose 122 H Lactic Acid Calcium Ionized Calcium Phosphorus Magnesium Direct Bilirubin AST ALT Alkaline Phosphatase Lactate Dehydrogenase Troponin T C-Reactive Protein Total Protein Albumin Prealbumin Triglycerides Cholesterol LDL Cholesterol Direct HDL Cholesterol 25-OH Vitamin D Total PTH Intact Urine pH Urine WBC (Auto) Urine Creatinine Urine Total Protein Fluid Total Protein Vancomycin Trough Rheumatoid Factor Complement C4 Miscellaneous Test Crossmatch 12/28/16 12/28/16 12/28/16 12:27 16:32 23:46 WBC RBC Hgb Hct MCV MCH MCHC RDW Plt Count Lymph % (Auto) [place] % (Auto) Lymph # [place] # Baso # Seg Neutrophils % Seg Neuts % (Manual) Lymphocytes % (Manual) Monocytes % (Manual) Eosinophils % (Manual) Basophils % (Manual) Nucleated RBC % Seg Neutrophils # Seg Neutrophils # Man Lymphocytes # (Manual) Monocytes # (Manual) Eosinophils # (Manual) Basophils # (Manual) PT INR Fibrinogen dRVVT Confirm Interp Factor V Activity POC ABG pH POC ABG pCO2 POC ABG pO2 ABG pO2 ABG HCO3 ABG Base Excess ABG Hemoglobin Oxyhemoglobin Sodium Potassium Chloride Carbon Dioxide BUN Creatinine Glucose POC Glucose 127 H 117 H 108 H Lactic Acid Calcium Ionized Calcium Phosphorus Magnesium Direct Bilirubin AST ALT Alkaline Phosphatase Lactate Dehydrogenase Troponin T C-Reactive Protein Total Protein Albumin Prealbumin Triglycerides Cholesterol LDL Cholesterol Direct HDL Cholesterol 25-OH Vitamin D Total PTH Intact Urine pH Urine WBC (Auto) Urine Creatinine Urine Total Protein Fluid Total Protein Vancomycin Trough Rheumatoid Factor Complement C4 Miscellaneous Test Crossmatch 12/29/16 12/29/16 12/29/16 05:15 05:15 05:32 WBC RBC Hgb Hct MCV MCH MCHC RDW Plt Count Lymph % (Auto) [place] % (Auto) Lymph # [place] # Baso # Seg Neutrophils % Seg Neuts % (Manual) Lymphocytes % (Manual) Monocytes % (Manual) Eosinophils % (Manual) Basophils % (Manual) Nucleated RBC % Seg Neutrophils # Seg Neutrophils # Man Lymphocytes # (Manual) Monocytes # (Manual) Eosinophils # (Manual) Basophils # (Manual) PT INR Fibrinogen dRVVT Confirm Interp Factor V Activity POC ABG pH POC ABG pCO2 POC ABG pO2 ABG pO2 ABG HCO3 ABG Base Excess ABG Hemoglobin Oxyhemoglobin Sodium Potassium Chloride Carbon Dioxide BUN 74 H Creatinine 1.6 H Glucose 111 H POC Glucose 123 H Lactic Acid Calcium Ionized Calcium Phosphorus Magnesium Direct Bilirubin AST ALT Alkaline Phosphatase Lactate Dehydrogenase Troponin T C-Reactive Protein Total Protein Albumin Prealbumin 0.110 L Triglycerides Cholesterol LDL Cholesterol Direct HDL Cholesterol 25-OH Vitamin D Total PTH Intact Urine pH Urine WBC (Auto) Urine Creatinine Urine Total Protein Fluid Total Protein Vancomycin Trough Rheumatoid Factor Complement C4 Miscellaneous Test Crossmatch 12/29/16 12/29/16 12/29/16 11:43 13:45 14:00 WBC 13.8 H RBC 2.26 L Hgb 6.3 L Hct 20.4 L MCV MCH MCHC RDW 18.3 H Plt Count Lymph % (Auto) [place] % (Auto) Lymph # [place] # 0.9 H Baso # Seg Neutrophils % 78.6 H Seg Neuts % (Manual) Lymphocytes % (Manual) Monocytes % (Manual) Eosinophils % (Manual) Basophils % (Manual) Nucleated RBC % Seg Neutrophils # 10.8 H Seg Neutrophils # Man Lymphocytes # (Manual) Monocytes # (Manual) Eosinophils # (Manual) Basophils # (Manual) PT INR Fibrinogen dRVVT Confirm Interp Factor V Activity POC ABG pH POC ABG pCO2 POC ABG pO2 ABG pO2 ABG HCO3 ABG Base Excess ABG Hemoglobin Oxyhemoglobin Sodium Potassium Chloride Carbon Dioxide BUN Creatinine Glucose POC Glucose 133 H Lactic Acid Calcium Ionized Calcium Phosphorus Magnesium Direct Bilirubin AST ALT Alkaline Phosphatase Lactate Dehydrogenase Troponin T C-Reactive Protein Total Protein Albumin Prealbumin Triglycerides Cholesterol LDL Cholesterol Direct HDL Cholesterol 25-OH Vitamin D Total PTH Intact Urine pH Urine WBC (Auto) Urine Creatinine Urine Total Protein Fluid Total Protein Vancomycin Trough Rheumatoid Factor Complement C4 Miscellaneous Test Crossmatch See Detail 12/29/16 12/29/16 12/29/16 17:03 23:15 23:22 WBC RBC Hgb 7.3 L Hct 22.3 L MCV MCH MCHC RDW Plt Count Lymph % (Auto) [place] % (Auto) Lymph # [place] # Baso # Seg Neutrophils % Seg Neuts % (Manual) Lymphocytes % (Manual) Monocytes % (Manual) Eosinophils % (Manual) Basophils % (Manual) Nucleated RBC % Seg Neutrophils # Seg Neutrophils # Man Lymphocytes # (Manual) Monocytes # (Manual) Eosinophils # (Manual) Basophils # (Manual) PT INR Fibrinogen dRVVT Confirm Interp Factor V Activity POC ABG pH POC ABG pCO2 POC ABG pO2 ABG pO2 ABG HCO3 ABG Base Excess ABG Hemoglobin Oxyhemoglobin Sodium Potassium Chloride Carbon Dioxide BUN Creatinine Glucose POC Glucose 139 H 120 H Lactic Acid Calcium Ionized Calcium Phosphorus Magnesium Direct Bilirubin AST ALT Alkaline Phosphatase Lactate Dehydrogenase Troponin T C-Reactive Protein Total Protein Albumin Prealbumin Triglycerides Cholesterol LDL Cholesterol Direct HDL Cholesterol 25-OH Vitamin D Total PTH Intact Urine pH Urine WBC (Auto) Urine Creatinine Urine Total Protein Fluid Total Protein Vancomycin Trough Rheumatoid Factor Complement C4 Miscellaneous Test Crossmatch 12/30/16 12/30/16 12/30/16 04:20 04:20 05:43 WBC 15.6 H RBC 2.81 L Hgb 8.0 L Hct 24.0 L MCV MCH MCHC RDW 16.9 H Plt Count Lymph % (Auto) [place] % (Auto) Lymph # [place] # 1.0 H Baso # Seg Neutrophils % 76.2 H Seg Neuts % (Manual) Lymphocytes % (Manual) Monocytes % (Manual) Eosinophils % (Manual) Basophils % (Manual) Nucleated RBC % Seg Neutrophils # 11.9 H Seg Neutrophils # Man Lymphocytes # (Manual) Monocytes # (Manual) Eosinophils # (Manual) Basophils # (Manual) PT INR Fibrinogen dRVVT Confirm Interp Factor V Activity POC ABG pH POC ABG pCO2 POC ABG pO2 ABG pO2 ABG HCO3 ABG Base Excess ABG Hemoglobin Oxyhemoglobin Sodium Potassium Chloride Carbon Dioxide BUN 87 H Creatinine 1.8 H Glucose 119 H POC Glucose 115 H Lactic Acid Calcium Ionized Calcium Phosphorus Magnesium Direct Bilirubin AST ALT Alkaline Phosphatase Lactate Dehydrogenase Troponin T C-Reactive Protein Total Protein Albumin Prealbumin Triglycerides Cholesterol LDL Cholesterol Direct HDL Cholesterol 25-OH Vitamin D Total PTH Intact Urine pH Urine WBC (Auto) Urine Creatinine Urine Total Protein Fluid Total Protein Vancomycin Trough Rheumatoid Factor Complement C4 Miscellaneous Test Crossmatch 12/30/16 12/30/16 12/31/16 17:27 23:21 04:00 WBC RBC Hgb Hct MCV MCH MCHC RDW Plt Count Lymph % (Auto) [place] % (Auto) Lymph # [place] # Baso # Seg Neutrophils % Seg Neuts % (Manual) Lymphocytes % (Manual) Monocytes % (Manual) Eosinophils % (Manual) Basophils % (Manual) Nucleated RBC % Seg Neutrophils # Seg Neutrophils # Man Lymphocytes # (Manual) Monocytes # (Manual) Eosinophils # (Manual) Basophils # (Manual) PT INR Fibrinogen dRVVT Confirm Interp Factor V Activity POC ABG pH POC ABG pCO2 POC ABG pO2 ABG pO2 ABG HCO3 ABG Base Excess ABG Hemoglobin Oxyhemoglobin Sodium Potassium Chloride Carbon Dioxide BUN 59 H Creatinine Glucose 298 H POC Glucose 144 H 125 H Lactic Acid Calcium Ionized Calcium Phosphorus Magnesium Direct Bilirubin AST ALT Alkaline Phosphatase Lactate Dehydrogenase Troponin T C-Reactive Protein Total Protein Albumin Prealbumin Triglycerides Cholesterol LDL Cholesterol Direct HDL Cholesterol 25-OH Vitamin D Total PTH Intact Urine pH Urine WBC (Auto) Urine Creatinine Urine Total Protein Fluid Total Protein Vancomycin Trough Rheumatoid Factor Complement C4 Miscellaneous Test Crossmatch 12/31/16 12/31/16 12/31/16 05:11 12:18 18:17 WBC RBC Hgb Hct MCV MCH MCHC RDW Plt Count Lymph % (Auto) [place] % (Auto) Lymph # [place] # Baso # Seg Neutrophils % Seg Neuts % (Manual) Lymphocytes % (Manual) Monocytes % (Manual) Eosinophils % (Manual) Basophils % (Manual) Nucleated RBC % Seg Neutrophils # Seg Neutrophils # Man Lymphocytes # (Manual) Monocytes # (Manual) Eosinophils # (Manual) Basophils # (Manual) PT INR Fibrinogen dRVVT Confirm Interp Factor V Activity POC ABG pH POC ABG pCO2 POC ABG pO2 ABG pO2 ABG HCO3 ABG Base Excess ABG Hemoglobin Oxyhemoglobin Sodium Potassium Chloride Carbon Dioxide BUN Creatinine Glucose POC Glucose 167 H 125 H 133 H Lactic Acid Calcium Ionized Calcium Phosphorus Magnesium Direct Bilirubin AST ALT Alkaline Phosphatase Lactate Dehydrogenase Troponin T C-Reactive Protein Total Protein Albumin Prealbumin Triglycerides Cholesterol LDL Cholesterol Direct HDL Cholesterol 25-OH Vitamin D Total PTH Intact Urine pH Urine WBC (Auto) Urine Creatinine Urine Total Protein Fluid Total Protein Vancomycin Trough Rheumatoid Factor Complement C4 Miscellaneous Test Crossmatch 12/31/16 01/01/17 01/01/17 23:55 05:00 05:12 WBC RBC Hgb Hct MCV MCH MCHC RDW Plt Count Lymph % (Auto) [place] % (Auto) Lymph # [place] # Baso # Seg Neutrophils % Seg Neuts % (Manual) Lymphocytes % (Manual) Monocytes % (Manual) Eosinophils % (Manual) Basophils % (Manual) Nucleated RBC % Seg Neutrophils # Seg Neutrophils # Man Lymphocytes # (Manual) Monocytes # (Manual) Eosinophils # (Manual) Basophils # (Manual) PT INR Fibrinogen dRVVT Confirm Interp Factor V Activity POC ABG pH POC ABG pCO2 POC ABG pO2 ABG pO2 ABG HCO3 ABG Base Excess ABG Hemoglobin Oxyhemoglobin Sodium Potassium Chloride Carbon Dioxide BUN 76 H Creatinine 1.5 H Glucose 109 H POC Glucose 129 H 129 H Lactic Acid Calcium Ionized Calcium Phosphorus Magnesium Direct Bilirubin AST ALT Alkaline Phosphatase 536 H Lactate Dehydrogenase Troponin T C-Reactive Protein Total Protein Albumin 1.5 L Prealbumin Triglycerides Cholesterol LDL Cholesterol Direct HDL Cholesterol 25-OH Vitamin D Total PTH Intact Urine pH Urine WBC (Auto) Urine Creatinine Urine Total Protein Fluid Total Protein Vancomycin Trough Rheumatoid Factor Complement C4 Miscellaneous Test Crossmatch 01/01/17 01/01/17 01/01/17 12:25 17:01 23:32 WBC RBC Hgb Hct MCV MCH MCHC RDW Plt Count Lymph % (Auto) [place] % (Auto) Lymph # [place] # Baso # Seg Neutrophils % Seg Neuts % (Manual) Lymphocytes % (Manual) Monocytes % (Manual) Eosinophils % (Manual) Basophils % (Manual) Nucleated RBC % Seg Neutrophils # Seg Neutrophils # Man Lymphocytes # (Manual) Monocytes # (Manual) Eosinophils # (Manual) Basophils # (Manual) PT INR Fibrinogen dRVVT Confirm Interp Factor V Activity POC ABG pH POC ABG pCO2 POC ABG pO2 ABG pO2 ABG HCO3 ABG Base Excess ABG Hemoglobin Oxyhemoglobin Sodium Potassium Chloride Carbon Dioxide BUN Creatinine Glucose POC Glucose 140 H 142 H 112 H Lactic Acid Calcium Ionized Calcium Phosphorus Magnesium Direct Bilirubin AST ALT Alkaline Phosphatase Lactate Dehydrogenase Troponin T C-Reactive Protein Total Protein Albumin Prealbumin Triglycerides Cholesterol LDL Cholesterol Direct HDL Cholesterol 25-OH Vitamin D Total PTH Intact Urine pH Urine WBC (Auto) Urine Creatinine Urine Total Protein Fluid Total Protein Vancomycin Trough Rheumatoid Factor Complement C4 Miscellaneous Test Crossmatch 01/02/17 01/02/17 01/02/17 04:56 06:00 11:37 WBC RBC Hgb Hct MCV MCH MCHC RDW Plt Count Lymph % (Auto) [place] % (Auto) Lymph # [place] # Baso # Seg Neutrophils % Seg Neuts % (Manual) Lymphocytes % (Manual) Monocytes % (Manual) Eosinophils % (Manual) Basophils % (Manual) Nucleated RBC % Seg Neutrophils # Seg Neutrophils # Man Lymphocytes # (Manual) Monocytes # (Manual) Eosinophils # (Manual) Basophils # (Manual) PT INR Fibrinogen dRVVT Confirm Interp Factor V Activity POC ABG pH POC ABG pCO2 POC ABG pO2 ABG pO2 ABG HCO3 ABG Base Excess ABG Hemoglobin Oxyhemoglobin Sodium Potassium Chloride Carbon Dioxide BUN 88 H Creatinine 1.7 H Glucose 113 H POC Glucose 136 H 200 H Lactic Acid Calcium Ionized Calcium Phosphorus Magnesium Direct Bilirubin AST ALT Alkaline Phosphatase Lactate Dehydrogenase Troponin T C-Reactive Protein Total Protein Albumin Prealbumin Triglycerides Cholesterol LDL Cholesterol Direct HDL Cholesterol 25-OH Vitamin D Total PTH Intact Urine pH Urine WBC (Auto) Urine Creatinine Urine Total Protein Fluid Total Protein Vancomycin Trough Rheumatoid Factor Complement C4 Miscellaneous Test Crossmatch 01/02/17 01/02/17 01/03/17 17:42 22:52 04:54 WBC RBC Hgb Hct MCV MCH MCHC RDW Plt Count Lymph % (Auto) [place] % (Auto) Lymph # [place] # Baso # Seg Neutrophils % Seg Neuts % (Manual) Lymphocytes % (Manual) Monocytes % (Manual) Eosinophils % (Manual) Basophils % (Manual) Nucleated RBC % Seg Neutrophils # Seg Neutrophils # Man Lymphocytes # (Manual) Monocytes # (Manual) Eosinophils # (Manual) Basophils # (Manual) PT INR Fibrinogen dRVVT Confirm Interp Factor V Activity POC ABG pH POC ABG pCO2 POC ABG pO2 ABG pO2 ABG HCO3 ABG Base Excess ABG Hemoglobin Oxyhemoglobin Sodium Potassium Chloride Carbon Dioxide BUN Creatinine Glucose POC Glucose 112 H 133 H 111 H Lactic Acid Calcium Ionized Calcium Phosphorus Magnesium Direct Bilirubin AST ALT Alkaline Phosphatase Lactate Dehydrogenase Troponin T C-Reactive Protein Total Protein Albumin Prealbumin Triglycerides Cholesterol LDL Cholesterol Direct HDL Cholesterol 25-OH Vitamin D Total PTH Intact Urine pH Urine WBC (Auto) Urine Creatinine Urine Total Protein Fluid Total Protein Vancomycin Trough Rheumatoid Factor Complement C4 Miscellaneous Test Crossmatch 01/03/17 01/03/17 01/03/17 05:00 05:00 14:02 WBC 11.2 H RBC 2.56 L Hgb 7.2 L Hct 22.3 L MCV MCH MCHC RDW 17.3 H Plt Count Lymph % (Auto) [place] % (Auto) 10.0 H Lymph # [place] # 1.1 H Baso # Seg Neutrophils % 70.5 H Seg Neuts % (Manual) Lymphocytes % (Manual) Monocytes % (Manual) Eosinophils % (Manual) Basophils % (Manual) Nucleated RBC % Seg Neutrophils # 7.9 H Seg Neutrophils # Man Lymphocytes # (Manual) Monocytes # (Manual) Eosinophils # (Manual) Basophils # (Manual) PT INR Fibrinogen dRVVT Confirm Interp Factor V Activity POC ABG pH POC ABG pCO2 POC ABG pO2 ABG pO2 ABG HCO3 ABG Base Excess ABG Hemoglobin Oxyhemoglobin Sodium Potassium Chloride Carbon Dioxide BUN 60 H Creatinine 1.3 H Glucose 110 H POC Glucose 119 H Lactic Acid Calcium Ionized Calcium Phosphorus Magnesium Direct Bilirubin AST ALT Alkaline Phosphatase Lactate Dehydrogenase Troponin T C-Reactive Protein Total Protein Albumin Prealbumin Triglycerides Cholesterol LDL Cholesterol Direct HDL Cholesterol 25-OH Vitamin D Total PTH Intact Urine pH Urine WBC (Auto) Urine Creatinine Urine Total Protein Fluid Total Protein Vancomycin Trough Rheumatoid Factor Complement C4 Miscellaneous Test Crossmatch 01/03/17 01/03/17 01/04/17 18:13 23:40 05:57 WBC RBC Hgb Hct MCV MCH MCHC RDW Plt Count Lymph % (Auto) [place] % (Auto) Lymph # [place] # Baso # Seg Neutrophils % Seg Neuts % (Manual) Lymphocytes % (Manual) Monocytes % (Manual) Eosinophils % (Manual) Basophils % (Manual) Nucleated RBC % Seg Neutrophils # Seg Neutrophils # Man Lymphocytes # (Manual) Monocytes # (Manual) Eosinophils # (Manual) Basophils # (Manual) PT INR Fibrinogen dRVVT Confirm Interp Factor V Activity POC ABG pH POC ABG pCO2 POC ABG pO2 ABG pO2 ABG HCO3 ABG Base Excess ABG Hemoglobin Oxyhemoglobin Sodium Potassium Chloride Carbon Dioxide BUN Creatinine Glucose POC Glucose 107 H 129 H 111 H Lactic Acid Calcium Ionized Calcium Phosphorus Magnesium Direct Bilirubin AST ALT Alkaline Phosphatase Lactate Dehydrogenase Troponin T C-Reactive Protein Total Protein Albumin Prealbumin Triglycerides Cholesterol LDL Cholesterol Direct HDL Cholesterol 25-OH Vitamin D Total PTH Intact Urine pH Urine WBC (Auto) Urine Creatinine Urine Total Protein Fluid Total Protein Vancomycin Trough Rheumatoid Factor Complement C4 Miscellaneous Test Crossmatch 01/04/17 01/04/17 01/04/17 12:46 15:27 17:11 WBC RBC Hgb Hct MCV MCH MCHC RDW Plt Count Lymph % (Auto) [place] % (Auto) Lymph # [place] # Baso # Seg Neutrophils % Seg Neuts % (Manual) Lymphocytes % (Manual) Monocytes % (Manual) Eosinophils % (Manual) Basophils % (Manual) Nucleated RBC % Seg Neutrophils # Seg Neutrophils # Man Lymphocytes # (Manual) Monocytes # (Manual) Eosinophils # (Manual) Basophils # (Manual) PT INR Fibrinogen dRVVT Confirm Interp Factor V Activity POC ABG pH POC ABG pCO2 POC ABG pO2 ABG pO2 ABG HCO3 ABG Base Excess ABG Hemoglobin Oxyhemoglobin Sodium Potassium Chloride Carbon Dioxide BUN 43 H Creatinine Glucose 124 H POC Glucose 159 H 125 H Lactic Acid Calcium 8.0 L Ionized Calcium Phosphorus 2.10 L Magnesium Direct Bilirubin AST ALT Alkaline Phosphatase Lactate Dehydrogenase Troponin T C-Reactive Protein Total Protein Albumin Prealbumin Triglycerides Cholesterol LDL Cholesterol Direct HDL Cholesterol 25-OH Vitamin D Total PTH Intact Urine pH Urine WBC (Auto) Urine Creatinine Urine Total Protein Fluid Total Protein Vancomycin Trough Rheumatoid Factor Complement C4 Miscellaneous Test Crossmatch 01/04/17 01/05/17 01/05/17 23:31 04:00 05:46 WBC RBC Hgb Hct MCV MCH MCHC RDW Plt Count Lymph % (Auto) [place] % (Auto) Lymph # [place] # Baso # Seg Neutrophils % Seg Neuts % (Manual) Lymphocytes % (Manual) Monocytes % (Manual) Eosinophils % (Manual) Basophils % (Manual) Nucleated RBC % Seg Neutrophils # Seg Neutrophils # Man Lymphocytes # (Manual) Monocytes # (Manual) Eosinophils # (Manual) Basophils # (Manual) PT INR Fibrinogen dRVVT Confirm Interp Factor V Activity POC ABG pH POC ABG pCO2 POC ABG pO2 ABG pO2 ABG HCO3 ABG Base Excess ABG Hemoglobin Oxyhemoglobin Sodium Potassium Chloride Carbon Dioxide BUN 52 H Creatinine 1.3 H Glucose 113 H POC Glucose 123 H 118 H Lactic Acid Calcium Ionized Calcium Phosphorus 2.40 L Magnesium Direct Bilirubin AST ALT Alkaline Phosphatase Lactate Dehydrogenase Troponin T C-Reactive Protein Total Protein Albumin Prealbumin Triglycerides Cholesterol LDL Cholesterol Direct HDL Cholesterol 25-OH Vitamin D Total PTH Intact Urine pH Urine WBC (Auto) Urine Creatinine Urine Total Protein Fluid Total Protein Vancomycin Trough Rheumatoid Factor Complement C4 Miscellaneous Test Crossmatch 01/05/17 01/05/17 01/05/17 11:41 17:48 23:27 WBC RBC Hgb Hct MCV MCH MCHC RDW Plt Count Lymph % (Auto) [place] % (Auto) Lymph # [place] # Baso # Seg Neutrophils % Seg Neuts % (Manual) Lymphocytes % (Manual) Monocytes % (Manual) Eosinophils % (Manual) Basophils % (Manual) Nucleated RBC % Seg Neutrophils # Seg Neutrophils # Man Lymphocytes # (Manual) Monocytes # (Manual) Eosinophils # (Manual) Basophils # (Manual) PT INR Fibrinogen dRVVT Confirm Interp Factor V Activity POC ABG pH POC ABG pCO2 POC ABG pO2 ABG pO2 ABG HCO3 ABG Base Excess ABG Hemoglobin Oxyhemoglobin Sodium Potassium Chloride Carbon Dioxide BUN Creatinine Glucose POC Glucose 163 H 142 H 155 H Lactic Acid Calcium Ionized Calcium Phosphorus Magnesium Direct Bilirubin AST ALT Alkaline Phosphatase Lactate Dehydrogenase Troponin T C-Reactive Protein Total Protein Albumin Prealbumin Triglycerides Cholesterol LDL Cholesterol Direct HDL Cholesterol 25-OH Vitamin D Total PTH Intact Urine pH Urine WBC (Auto) Urine Creatinine Urine Total Protein Fluid Total Protein Vancomycin Trough Rheumatoid Factor Complement C4 Miscellaneous Test Crossmatch 01/06/17 01/06/17 01/06/17 05:20 07:35 11:18 WBC RBC Hgb Hct MCV MCH MCHC RDW Plt Count Lymph % (Auto) [place] % (Auto) Lymph # [place] # Baso # Seg Neutrophils % Seg Neuts % (Manual) Lymphocytes % (Manual) Monocytes % (Manual) Eosinophils % (Manual) Basophils % (Manual) Nucleated RBC % Seg Neutrophils # Seg Neutrophils # Man Lymphocytes # (Manual) Monocytes # (Manual) Eosinophils # (Manual) Basophils # (Manual) PT INR Fibrinogen dRVVT Confirm Interp Factor V Activity POC ABG pH POC ABG pCO2 POC ABG pO2 ABG pO2 ABG HCO3 ABG Base Excess ABG Hemoglobin Oxyhemoglobin Sodium Potassium Chloride Carbon Dioxide BUN 74 H Creatinine 1.6 H Glucose 135 H POC Glucose 108 H 149 H Lactic Acid Calcium Ionized Calcium Phosphorus Magnesium Direct Bilirubin AST ALT Alkaline Phosphatase Lactate Dehydrogenase Troponin T C-Reactive Protein Total Protein Albumin Prealbumin Triglycerides Cholesterol LDL Cholesterol Direct HDL Cholesterol 25-OH Vitamin D Total PTH Intact Urine pH Urine WBC (Auto) Urine Creatinine Urine Total Protein Fluid Total Protein Vancomycin Trough Rheumatoid Factor Complement C4 Miscellaneous Test Crossmatch 01/06/17 01/07/17 01/07/17 17:17 00:23 05:31 WBC RBC Hgb Hct MCV MCH MCHC RDW Plt Count Lymph % (Auto) [place] % (Auto) Lymph # [place] # Baso # Seg Neutrophils % Seg Neuts % (Manual) Lymphocytes % (Manual) Monocytes % (Manual) Eosinophils % (Manual) Basophils % (Manual) Nucleated RBC % Seg Neutrophils # Seg Neutrophils # Man Lymphocytes # (Manual) Monocytes # (Manual) Eosinophils # (Manual) Basophils # (Manual) PT INR Fibrinogen dRVVT Confirm Interp Factor V Activity POC ABG pH POC ABG pCO2 POC ABG pO2 ABG pO2 ABG HCO3 ABG Base Excess ABG Hemoglobin Oxyhemoglobin Sodium Potassium Chloride Carbon Dioxide BUN Creatinine Glucose POC Glucose 146 H 165 H 153 H Lactic Acid Calcium Ionized Calcium Phosphorus Magnesium Direct Bilirubin AST ALT Alkaline Phosphatase Lactate Dehydrogenase Troponin T C-Reactive Protein Total Protein Albumin Prealbumin Triglycerides Cholesterol LDL Cholesterol Direct HDL Cholesterol 25-OH Vitamin D Total PTH Intact Urine pH Urine WBC (Auto) Urine Creatinine Urine Total Protein Fluid Total Protein Vancomycin Trough Rheumatoid Factor Complement C4 Miscellaneous Test Crossmatch 01/07/17 01/07/17 01/07/17 06:00 11:39 17:11 WBC RBC Hgb Hct MCV MCH MCHC RDW Plt Count Lymph % (Auto) [place] % (Auto) Lymph # [place] # Baso # Seg Neutrophils % Seg Neuts % (Manual) Lymphocytes % (Manual) Monocytes % (Manual) Eosinophils % (Manual) Basophils % (Manual) Nucleated RBC % Seg Neutrophils # Seg Neutrophils # Man Lymphocytes # (Manual) Monocytes # (Manual) Eosinophils # (Manual) Basophils # (Manual) PT INR Fibrinogen dRVVT Confirm Interp Factor V Activity POC ABG pH POC ABG pCO2 POC ABG pO2 ABG pO2 ABG HCO3 ABG Base Excess ABG Hemoglobin Oxyhemoglobin Sodium Potassium Chloride Carbon Dioxide BUN 42 H Creatinine Glucose 175 H POC Glucose 163 H 163 H Lactic Acid Calcium Ionized Calcium Phosphorus 2.40 L D Magnesium Direct Bilirubin AST ALT Alkaline Phosphatase Lactate Dehydrogenase Troponin T C-Reactive Protein Total Protein Albumin Prealbumin Triglycerides Cholesterol LDL Cholesterol Direct HDL Cholesterol 25-OH Vitamin D Total PTH Intact Urine pH Urine WBC (Auto) Urine Creatinine Urine Total Protein Fluid Total Protein Vancomycin Trough Rheumatoid Factor Complement C4 Miscellaneous Test Crossmatch 01/07/17 01/08/17 01/08/17 23:40 05:00 05:00 WBC 27.4 H RBC 2.27 L Hgb 6.1 L Hct 20.4 L MCV MCH 27 L MCHC RDW 17.8 H Plt Count Lymph % (Auto) [place] % (Auto) Lymph # [place] # Baso # Seg Neutrophils % Seg Neuts % (Manual) Lymphocytes % (Manual) Monocytes % (Manual) Eosinophils % (Manual) Basophils % (Manual) Nucleated RBC % Seg Neutrophils # Seg Neutrophils # Man Lymphocytes # (Manual) Monocytes # (Manual) Eosinophils # (Manual) Basophils # (Manual) PT INR Fibrinogen dRVVT Confirm Interp Factor V Activity POC ABG pH POC ABG pCO2 POC ABG pO2 ABG pO2 ABG HCO3 ABG Base Excess ABG Hemoglobin Oxyhemoglobin Sodium Potassium Chloride Carbon Dioxide 16 L D BUN 62 H Creatinine 1.6 H D Glucose 103 H POC Glucose 135 H Lactic Acid Calcium Ionized Calcium Phosphorus Magnesium Direct Bilirubin AST ALT Alkaline Phosphatase Lactate Dehydrogenase Troponin T C-Reactive Protein Total Protein Albumin Prealbumin Triglycerides Cholesterol LDL Cholesterol Direct HDL Cholesterol 25-OH Vitamin D Total PTH Intact Urine pH Urine WBC (Auto) Urine Creatinine Urine Total Protein Fluid Total Protein Vancomycin Trough Rheumatoid Factor Complement C4 Miscellaneous Test Crossmatch 01/08/17 01/08/17 01/08/17 05:25 10:37 10:37 WBC RBC Hgb Hct MCV MCH MCHC RDW Plt Count Lymph % (Auto) [place] % (Auto) Lymph # [place] # Baso # Seg Neutrophils % Seg Neuts % (Manual) Lymphocytes % (Manual) Monocytes % (Manual) Eosinophils % (Manual) Basophils % (Manual) Nucleated RBC % Seg Neutrophils # Seg Neutrophils # Man Lymphocytes # (Manual) Monocytes # (Manual) Eosinophils # (Manual) Basophils # (Manual) PT INR Fibrinogen dRVVT Confirm Interp Factor V Activity POC ABG pH POC ABG pCO2 POC ABG pO2 ABG pO2 ABG HCO3 ABG Base Excess ABG Hemoglobin Oxyhemoglobin Sodium Potassium Chloride Carbon Dioxide BUN Creatinine Glucose POC Glucose 106 H Lactic Acid Calcium Ionized Calcium Phosphorus Magnesium Direct Bilirubin AST ALT Alkaline Phosphatase Lactate Dehydrogenase Troponin T C-Reactive Protein 24.40 H Total Protein Albumin Prealbumin Triglycerides Cholesterol LDL Cholesterol Direct HDL Cholesterol 25-OH Vitamin D Total PTH Intact Urine pH Urine WBC (Auto) Urine Creatinine Urine Total Protein Fluid Total Protein Vancomycin Trough Rheumatoid Factor Complement C4 Miscellaneous Test Crossmatch See Detail 01/08/17 01/08/17 01/08/17 10:37 11:33 15:15 WBC RBC Hgb Hct MCV MCH MCHC RDW Plt Count Lymph % (Auto) [place] % (Auto) Lymph # [place] # Baso # Seg Neutrophils % Seg Neuts % (Manual) Lymphocytes % (Manual) Monocytes % (Manual) Eosinophils % (Manual) Basophils % (Manual) Nucleated RBC % Seg Neutrophils # Seg Neutrophils # Man Lymphocytes # (Manual) Monocytes # (Manual) Eosinophils # (Manual) Basophils # (Manual) PT INR Fibrinogen dRVVT Confirm Interp Factor V Activity POC ABG pH POC ABG pCO2 POC ABG pO2 ABG pO2 ABG HCO3 ABG Base Excess ABG Hemoglobin Oxyhemoglobin Sodium Potassium Chloride Carbon Dioxide BUN Creatinine Glucose POC Glucose 157 H Lactic Acid 9.70 H* 9.10 H* Calcium Ionized Calcium Phosphorus Magnesium Direct Bilirubin AST ALT Alkaline Phosphatase Lactate Dehydrogenase Troponin T C-Reactive Protein Total Protein Albumin Prealbumin Triglycerides Cholesterol LDL Cholesterol Direct HDL Cholesterol 25-OH Vitamin D Total PTH Intact Urine pH Urine WBC (Auto) Urine Creatinine Urine Total Protein Fluid Total Protein Vancomycin Trough Rheumatoid Factor Complement C4 Miscellaneous Test Crossmatch 01/08/17 01/08/17 01/09/17 17:19 23:12 04:40 WBC RBC Hgb Hct MCV MCH MCHC RDW Plt Count Lymph % (Auto) [place] % (Auto) Lymph # [place] # Baso # Seg Neutrophils % Seg Neuts % (Manual) Lymphocytes % (Manual) Monocytes % (Manual) Eosinophils % (Manual) Basophils % (Manual) Nucleated RBC % Seg Neutrophils # Seg Neutrophils # Man Lymphocytes # (Manual) Monocytes # (Manual) Eosinophils # (Manual) Basophils # (Manual) PT INR Fibrinogen dRVVT Confirm Interp Factor V Activity POC ABG pH POC ABG pCO2 POC ABG pO2 ABG pO2 ABG HCO3 ABG Base Excess ABG Hemoglobin Oxyhemoglobin Sodium 147 H Potassium Chloride Carbon Dioxide BUN 82 H Creatinine 1.8 H Glucose 137 H POC Glucose 164 H 157 H Lactic Acid Calcium Ionized Calcium Phosphorus Magnesium Direct Bilirubin AST ALT Alkaline Phosphatase Lactate Dehydrogenase Troponin T C-Reactive Protein Total Protein Albumin Prealbumin Triglycerides Cholesterol LDL Cholesterol Direct HDL Cholesterol 25-OH Vitamin D Total PTH Intact Urine pH Urine WBC (Auto) Urine Creatinine Urine Total Protein Fluid Total Protein Vancomycin Trough Rheumatoid Factor Complement C4 Miscellaneous Test Crossmatch 01/09/17 01/09/17 01/09/17 05:42 08:22 10:57 WBC RBC Hgb Hct MCV MCH MCHC RDW Plt Count Lymph % (Auto) [place] % (Auto) Lymph # [place] # Baso # Seg Neutrophils % Seg Neuts % (Manual) Lymphocytes % (Manual) Monocytes % (Manual) Eosinophils % (Manual) Basophils % (Manual) Nucleated RBC % Seg Neutrophils # Seg Neutrophils # Man Lymphocytes # (Manual) Monocytes # (Manual) Eosinophils # (Manual) Basophils # (Manual) PT INR Fibrinogen dRVVT Confirm Interp Factor V Activity POC ABG pH POC ABG pCO2 POC ABG pO2 ABG pO2 ABG HCO3 ABG Base Excess ABG Hemoglobin Oxyhemoglobin Sodium Potassium Chloride Carbon Dioxide BUN Creatinine Glucose POC Glucose 156 H 122 H Lactic Acid 2.30 H* Calcium Ionized Calcium Phosphorus Magnesium Direct Bilirubin AST ALT Alkaline Phosphatase Lactate Dehydrogenase Troponin T C-Reactive Protein Total Protein Albumin Prealbumin Triglycerides Cholesterol LDL Cholesterol Direct HDL Cholesterol 25-OH Vitamin D Total PTH Intact Urine pH Urine WBC (Auto) Urine Creatinine Urine Total Protein Fluid Total Protein Vancomycin Trough Rheumatoid Factor Complement C4 Miscellaneous Test Crossmatch 01/09/17 01/09/17 01/09/17 13:30 17:14 18:45 WBC RBC Hgb Hct MCV MCH MCHC RDW Plt Count Lymph % (Auto) [place] % (Auto) Lymph # [place] # Baso # Seg Neutrophils % Seg Neuts % (Manual) Lymphocytes % (Manual) Monocytes % (Manual) Eosinophils % (Manual) Basophils % (Manual) Nucleated RBC % Seg Neutrophils # Seg Neutrophils # Man Lymphocytes # (Manual) Monocytes # (Manual) Eosinophils # (Manual) Basophils # (Manual) PT INR Fibrinogen dRVVT Confirm Interp Factor V Activity POC ABG pH POC ABG pCO2 POC ABG pO2 ABG pO2 ABG HCO3 ABG Base Excess ABG Hemoglobin Oxyhemoglobin Sodium Potassium Chloride Carbon Dioxide BUN Creatinine Glucose POC Glucose 127 H Lactic Acid Calcium Ionized Calcium Phosphorus Magnesium Direct Bilirubin AST ALT Alkaline Phosphatase Lactate Dehydrogenase Troponin T C-Reactive Protein 24.70 H Total Protein Albumin Prealbumin Triglycerides Cholesterol LDL Cholesterol Direct HDL Cholesterol 25-OH Vitamin D Total PTH Intact Urine pH Urine WBC (Auto) Urine Creatinine Urine Total Protein Fluid Total Protein Vancomycin Trough Rheumatoid Factor Complement C4 Miscellaneous Test Flexitest 1 H Crossmatch 01/10/17 01/10/17 01/10/17 01:21 04:00 04:00 WBC 18.1 H RBC 3.22 L Hgb 8.8 L Hct 27.0 L D MCV MCH 27 L MCHC RDW 17.0 H Plt Count Lymph % (Auto) [place] % (Auto) Lymph # [place] # Baso # Seg Neutrophils % Seg Neuts % (Manual) Lymphocytes % (Manual) Monocytes % (Manual) Eosinophils % (Manual) Basophils % (Manual) Nucleated RBC % Seg Neutrophils # Seg Neutrophils # Man Lymphocytes # (Manual) Monocytes # (Manual) Eosinophils # (Manual) Basophils # (Manual) PT INR Fibrinogen dRVVT Confirm Interp Factor V Activity POC ABG pH POC ABG pCO2 POC ABG pO2 ABG pO2 ABG HCO3 ABG Base Excess ABG Hemoglobin Oxyhemoglobin Sodium Potassium Chloride Carbon Dioxide BUN 59 H Creatinine 1.3 H Glucose 122 H POC Glucose 160 H Lactic Acid Calcium Ionized Calcium Phosphorus Magnesium Direct Bilirubin AST ALT Alkaline Phosphatase Lactate Dehydrogenase Troponin T C-Reactive Protein Total Protein Albumin Prealbumin Triglycerides Cholesterol LDL Cholesterol Direct HDL Cholesterol 25-OH Vitamin D Total PTH Intact Urine pH Urine WBC (Auto) Urine Creatinine Urine Total Protein Fluid Total Protein Vancomycin Trough Rheumatoid Factor Complement C4 Miscellaneous Test Crossmatch 01/10/17 01/10/17 01/10/17 05:36 12:14 17:55 WBC RBC Hgb Hct MCV MCH MCHC RDW Plt Count Lymph % (Auto) [place] % (Auto) Lymph # [place] # Baso # Seg Neutrophils % Seg Neuts % (Manual) Lymphocytes % (Manual) Monocytes % (Manual) Eosinophils % (Manual) Basophils % (Manual) Nucleated RBC % Seg Neutrophils # Seg Neutrophils # Man Lymphocytes # (Manual) Monocytes # (Manual) Eosinophils # (Manual) Basophils # (Manual) PT INR Fibrinogen dRVVT Confirm Interp Factor V Activity POC ABG pH POC ABG pCO2 POC ABG pO2 ABG pO2 ABG HCO3 ABG Base Excess ABG Hemoglobin Oxyhemoglobin Sodium Potassium Chloride Carbon Dioxide BUN Creatinine Glucose POC Glucose 163 H 120 H 144 H Lactic Acid Calcium Ionized Calcium Phosphorus Magnesium Direct Bilirubin AST ALT Alkaline Phosphatase Lactate Dehydrogenase Troponin T C-Reactive Protein Total Protein Albumin Prealbumin Triglycerides Cholesterol LDL Cholesterol Direct HDL Cholesterol 25-OH Vitamin D Total PTH Intact Urine pH Urine WBC (Auto) Urine Creatinine Urine Total Protein Fluid Total Protein Vancomycin Trough Rheumatoid Factor Complement C4 Miscellaneous Test Crossmatch 01/11/17 01/11/17 01/11/17 00:09 04:00 04:00 WBC 15.8 H RBC 3.04 L Hgb 8.2 L Hct 25.5 L MCV MCH 27 L MCHC RDW 17.3 H Plt Count Lymph % (Auto) [place] % (Auto) Lymph # [place] # Baso # Seg Neutrophils % Seg Neuts % (Manual) Lymphocytes % (Manual) Monocytes % (Manual) Eosinophils % (Manual) Basophils % (Manual) Nucleated RBC % Seg Neutrophils # Seg Neutrophils # Man Lymphocytes # (Manual) Monocytes # (Manual) Eosinophils # (Manual) Basophils # (Manual) PT INR Fibrinogen dRVVT Confirm Interp Factor V Activity POC ABG pH POC ABG pCO2 POC ABG pO2 ABG pO2 ABG HCO3 ABG Base Excess ABG Hemoglobin Oxyhemoglobin Sodium Potassium Chloride Carbon Dioxide BUN 78 H Creatinine 1.6 H Glucose 109 H POC Glucose 122 H Lactic Acid Calcium Ionized Calcium Phosphorus Magnesium Direct Bilirubin AST ALT Alkaline Phosphatase Lactate Dehydrogenase Troponin T C-Reactive Protein Total Protein Albumin Prealbumin Triglycerides Cholesterol LDL Cholesterol Direct HDL Cholesterol 25-OH Vitamin D Total PTH Intact Urine pH Urine WBC (Auto) Urine Creatinine Urine Total Protein Fluid Total Protein Vancomycin Trough Rheumatoid Factor Complement C4 Miscellaneous Test Crossmatch 01/11/17 01/11/17 01/11/17 12:46 18:23 23:42 WBC RBC Hgb Hct MCV MCH MCHC RDW Plt Count Lymph % (Auto) [place] % (Auto) Lymph # [place] # Baso # Seg Neutrophils % Seg Neuts % (Manual) Lymphocytes % (Manual) Monocytes % (Manual) Eosinophils % (Manual) Basophils % (Manual) Nucleated RBC % Seg Neutrophils # Seg Neutrophils # Man Lymphocytes # (Manual) Monocytes # (Manual) Eosinophils # (Manual) Basophils # (Manual) PT INR Fibrinogen dRVVT Confirm Interp Factor V Activity POC ABG pH POC ABG pCO2 POC ABG pO2 ABG pO2 ABG HCO3 ABG Base Excess ABG Hemoglobin Oxyhemoglobin Sodium Potassium Chloride Carbon Dioxide BUN Creatinine Glucose POC Glucose 148 H 125 H 124 H Lactic Acid Calcium Ionized Calcium Phosphorus Magnesium Direct Bilirubin AST ALT Alkaline Phosphatase Lactate Dehydrogenase Troponin T C-Reactive Protein Total Protein Albumin Prealbumin Triglycerides Cholesterol LDL Cholesterol Direct HDL Cholesterol 25-OH Vitamin D Total PTH Intact Urine pH Urine WBC (Auto) Urine Creatinine Urine Total Protein Fluid Total Protein Vancomycin Trough Rheumatoid Factor Complement C4 Miscellaneous Test Crossmatch 01/12/17 01/12/17 01/12/17 04:30 04:30 05:47 WBC 15.8 H RBC 3.31 L Hgb 8.9 L Hct 27.9 L MCV MCH 27 L MCHC RDW 17.4 H Plt Count Lymph % (Auto) [place] % (Auto) Lymph # [place] # Baso # Seg Neutrophils % Seg Neuts % (Manual) Lymphocytes % (Manual) Monocytes % (Manual) Eosinophils % (Manual) Basophils % (Manual) Nucleated RBC % Seg Neutrophils # Seg Neutrophils # Man Lymphocytes # (Manual) Monocytes # (Manual) Eosinophils # (Manual) Basophils # (Manual) PT INR Fibrinogen dRVVT Confirm Interp Factor V Activity POC ABG pH POC ABG pCO2 POC ABG pO2 ABG pO2 ABG HCO3 ABG Base Excess ABG Hemoglobin Oxyhemoglobin Sodium Potassium Chloride Carbon Dioxide BUN 57 H Creatinine Glucose 121 H POC Glucose 110 H Lactic Acid Calcium Ionized Calcium Phosphorus 2.10 L Magnesium Direct Bilirubin AST ALT Alkaline Phosphatase Lactate Dehydrogenase Troponin T C-Reactive Protein Total Protein Albumin Prealbumin Triglycerides Cholesterol LDL Cholesterol Direct HDL Cholesterol 25-OH Vitamin D Total PTH Intact Urine pH Urine WBC (Auto) Urine Creatinine Urine Total Protein Fluid Total Protein Vancomycin Trough Rheumatoid Factor Complement C4 Miscellaneous Test Crossmatch 01/12/17 01/12/17 01/12/17 11:35 17:45 23:14 WBC RBC Hgb Hct MCV MCH MCHC RDW Plt Count Lymph % (Auto) [place] % (Auto) Lymph # [place] # Baso # Seg Neutrophils % Seg Neuts % (Manual) Lymphocytes % (Manual) Monocytes % (Manual) Eosinophils % (Manual) Basophils % (Manual) Nucleated RBC % Seg Neutrophils # Seg Neutrophils # Man Lymphocytes # (Manual) Monocytes # (Manual) Eosinophils # (Manual) Basophils # (Manual) PT INR Fibrinogen dRVVT Confirm Interp Factor V Activity POC ABG pH POC ABG pCO2 POC ABG pO2 ABG pO2 ABG HCO3 ABG Base Excess ABG Hemoglobin Oxyhemoglobin Sodium Potassium Chloride Carbon Dioxide BUN Creatinine Glucose POC Glucose 146 H 117 H 123 H Lactic Acid Calcium Ionized Calcium Phosphorus Magnesium Direct Bilirubin AST ALT Alkaline Phosphatase Lactate Dehydrogenase Troponin T C-Reactive Protein Total Protein Albumin Prealbumin Triglycerides Cholesterol LDL Cholesterol Direct HDL Cholesterol 25-OH Vitamin D Total PTH Intact Urine pH Urine WBC (Auto) Urine Creatinine Urine Total Protein Fluid Total Protein Vancomycin Trough Rheumatoid Factor Complement C4 Miscellaneous Test Crossmatch 01/13/17 01/13/17 01/13/17 05:32 06:00 12:10 WBC RBC Hgb Hct MCV MCH MCHC RDW Plt Count Lymph % (Auto) [place] % (Auto) Lymph # [place] # Baso # Seg Neutrophils % Seg Neuts % (Manual) Lymphocytes % (Manual) Monocytes % (Manual) Eosinophils % (Manual) Basophils % (Manual) Nucleated RBC % Seg Neutrophils # Seg Neutrophils # Man Lymphocytes # (Manual) Monocytes # (Manual) Eosinophils # (Manual) Basophils # (Manual) PT INR Fibrinogen dRVVT Confirm Interp Factor V Activity POC ABG pH POC ABG pCO2 POC ABG pO2 ABG pO2 ABG HCO3 ABG Base Excess ABG Hemoglobin Oxyhemoglobin Sodium Potassium Chloride Carbon Dioxide BUN 80 H Creatinine 1.4 H Glucose 106 H POC Glucose 106 H Lactic Acid Calcium Ionized Calcium Phosphorus Magnesium Direct Bilirubin AST ALT Alkaline Phosphatase Lactate Dehydrogenase Troponin T C-Reactive Protein Total Protein Albumin Prealbumin Triglycerides Cholesterol LDL Cholesterol Direct HDL Cholesterol 25-OH Vitamin D Total PTH Intact Urine pH Urine WBC (Auto) Urine Creatinine Urine Total Protein Fluid Total Protein 3.0 L Vancomycin Trough Rheumatoid Factor Complement C4 Miscellaneous Test Crossmatch 01/13/17 01/13/17 01/13/17 12:17 15:50 17:30 WBC RBC Hgb Hct MCV MCH MCHC RDW Plt Count Lymph % (Auto) [place] % (Auto) Lymph # [place] # Baso # Seg Neutrophils % Seg Neuts % (Manual) Lymphocytes % (Manual) Monocytes % (Manual) Eosinophils % (Manual) Basophils % (Manual) Nucleated RBC % Seg Neutrophils # Seg Neutrophils # Man Lymphocytes # (Manual) Monocytes # (Manual) Eosinophils # (Manual) Basophils # (Manual) PT 15.4 H INR 1.16 H Fibrinogen dRVVT Confirm Interp Factor V Activity POC ABG pH POC ABG pCO2 POC ABG pO2 ABG pO2 ABG HCO3 ABG Base Excess ABG Hemoglobin Oxyhemoglobin Sodium Potassium Chloride Carbon Dioxide BUN Creatinine Glucose POC Glucose 168 H 110 H Lactic Acid Calcium Ionized Calcium Phosphorus Magnesium Direct Bilirubin AST ALT Alkaline Phosphatase Lactate Dehydrogenase Troponin T C-Reactive Protein Total Protein Albumin Prealbumin Triglycerides Cholesterol LDL Cholesterol Direct HDL Cholesterol 25-OH Vitamin D Total PTH Intact Urine pH Urine WBC (Auto) Urine Creatinine Urine Total Protein Fluid Total Protein Vancomycin Trough Rheumatoid Factor Complement C4 Miscellaneous Test Crossmatch 01/13/17 01/14/17 01/14/17 23:42 05:24 05:30 WBC RBC Hgb Hct MCV MCH MCHC RDW Plt Count Lymph % (Auto) [place] % (Auto) Lymph # [place] # Baso # Seg Neutrophils % Seg Neuts % (Manual) Lymphocytes % (Manual) Monocytes % (Manual) Eosinophils % (Manual) Basophils % (Manual) Nucleated RBC % Seg Neutrophils # Seg Neutrophils # Man Lymphocytes # (Manual) Monocytes # (Manual) Eosinophils # (Manual) Basophils # (Manual) PT INR Fibrinogen dRVVT Confirm Interp Factor V Activity POC ABG pH POC ABG pCO2 POC ABG pO2 ABG pO2 ABG HCO3 ABG Base Excess ABG Hemoglobin Oxyhemoglobin Sodium Potassium Chloride Carbon Dioxide BUN 58 H Creatinine Glucose 114 H POC Glucose 155 H 121 H Lactic Acid Calcium Ionized Calcium Phosphorus Magnesium Direct Bilirubin AST ALT Alkaline Phosphatase Lactate Dehydrogenase Troponin T C-Reactive Protein Total Protein Albumin Prealbumin Triglycerides Cholesterol LDL Cholesterol Direct HDL Cholesterol 25-OH Vitamin D Total PTH Intact Urine pH Urine WBC (Auto) Urine Creatinine Urine Total Protein Fluid Total Protein Vancomycin Trough Rheumatoid Factor Complement C4 Miscellaneous Test Crossmatch 01/14/17 01/14/17 01/15/17 12:48 17:36 00:15 WBC RBC Hgb Hct MCV MCH MCHC RDW Plt Count Lymph % (Auto) [place] % (Auto) Lymph # [place] # Baso # Seg Neutrophils % Seg Neuts % (Manual) Lymphocytes % (Manual) Monocytes % (Manual) Eosinophils % (Manual) Basophils % (Manual) Nucleated RBC % Seg Neutrophils # Seg Neutrophils # Man Lymphocytes # (Manual) Monocytes # (Manual) Eosinophils # (Manual) Basophils # (Manual) PT INR Fibrinogen dRVVT Confirm Interp Factor V Activity POC ABG pH POC ABG pCO2 POC ABG pO2 ABG pO2 ABG HCO3 ABG Base Excess ABG Hemoglobin Oxyhemoglobin Sodium Potassium Chloride Carbon Dioxide BUN Creatinine Glucose POC Glucose 130 H 135 H 132 H Lactic Acid Calcium Ionized Calcium Phosphorus Magnesium Direct Bilirubin AST ALT Alkaline Phosphatase Lactate Dehydrogenase Troponin T C-Reactive Protein Total Protein Albumin Prealbumin Triglycerides Cholesterol LDL Cholesterol Direct HDL Cholesterol 25-OH Vitamin D Total PTH Intact Urine pH Urine WBC (Auto) Urine Creatinine Urine Total Protein Fluid Total Protein Vancomycin Trough Rheumatoid Factor Complement C4 Miscellaneous Test Crossmatch 01/15/17 01/15/17 01/15/17 05:01 11:55 12:45 WBC 16.2 H RBC 3.00 L Hgb 8.1 L Hct 25.4 L MCV MCH 27 L MCHC RDW 17.6 H Plt Count Lymph % (Auto) 11.7 L [place] % (Auto) 7.8 H Lymph # [place] # 1.3 H Baso # Seg Neutrophils % 80.1 H Seg Neuts % (Manual) Lymphocytes % (Manual) Monocytes % (Manual) Eosinophils % (Manual) Basophils % (Manual) Nucleated RBC % Seg Neutrophils # 13.0 H Seg Neutrophils # Man Lymphocytes # (Manual) Monocytes # (Manual) Eosinophils # (Manual) Basophils # (Manual) PT INR Fibrinogen dRVVT Confirm Interp Factor V Activity POC ABG pH POC ABG pCO2 POC ABG pO2 ABG pO2 ABG HCO3 ABG Base Excess ABG Hemoglobin Oxyhemoglobin Sodium Potassium Chloride Carbon Dioxide BUN Creatinine Glucose POC Glucose 126 H 125 H Lactic Acid Calcium Ionized Calcium Phosphorus Magnesium Direct Bilirubin AST ALT Alkaline Phosphatase Lactate Dehydrogenase Troponin T C-Reactive Protein Total Protein Albumin Prealbumin Triglycerides Cholesterol LDL Cholesterol Direct HDL Cholesterol 25-OH Vitamin D Total PTH Intact Urine pH Urine WBC (Auto) Urine Creatinine Urine Total Protein Fluid Total Protein Vancomycin Trough Rheumatoid Factor Complement C4 Miscellaneous Test Crossmatch 01/15/17 01/15/17 01/15/17 12:45 17:31 23:39 WBC RBC Hgb Hct MCV MCH MCHC RDW Plt Count Lymph % (Auto) [place] % (Auto) Lymph # [place] # Baso # Seg Neutrophils % Seg Neuts % (Manual) Lymphocytes % (Manual) Monocytes % (Manual) Eosinophils % (Manual) Basophils % (Manual) Nucleated RBC % Seg Neutrophils # Seg Neutrophils # Man Lymphocytes # (Manual) Monocytes # (Manual) Eosinophils # (Manual) Basophils # (Manual) PT INR Fibrinogen dRVVT Confirm Interp Factor V Activity POC ABG pH POC ABG pCO2 POC ABG pO2 ABG pO2 ABG HCO3 ABG Base Excess ABG Hemoglobin Oxyhemoglobin Sodium 136 L Potassium Chloride Carbon Dioxide BUN 87 H Creatinine 1.7 H Glucose 108 H POC Glucose 129 H 112 H Lactic Acid Calcium Ionized Calcium Phosphorus Magnesium Direct Bilirubin AST ALT Alkaline Phosphatase Lactate Dehydrogenase Troponin T C-Reactive Protein Total Protein Albumin Prealbumin Triglycerides Cholesterol LDL Cholesterol Direct HDL Cholesterol 25-OH Vitamin D Total PTH Intact Urine pH Urine WBC (Auto) Urine Creatinine Urine Total Protein Fluid Total Protein Vancomycin Trough Rheumatoid Factor Complement C4 Miscellaneous Test Crossmatch 01/16/17 01/16/17 01/16/17 05:23 11:42 12:32 WBC RBC Hgb Hct MCV MCH MCHC RDW Plt Count Lymph % (Auto) [place] % (Auto) Lymph # [place] # Baso # Seg Neutrophils % Seg Neuts % (Manual) Lymphocytes % (Manual) Monocytes % (Manual) Eosinophils % (Manual) Basophils % (Manual) Nucleated RBC % Seg Neutrophils # Seg Neutrophils # Man Lymphocytes # (Manual) Monocytes # (Manual) Eosinophils # (Manual) Basophils # (Manual) PT INR Fibrinogen dRVVT Confirm Interp Factor V Activity POC ABG pH 7.499 H POC ABG pCO2 30.9 L POC ABG pO2 51 L ABG pO2 ABG HCO3 ABG Base Excess ABG Hemoglobin Oxyhemoglobin Sodium Potassium Chloride Carbon Dioxide BUN Creatinine Glucose POC Glucose 118 H 133 H Lactic Acid Calcium Ionized Calcium Phosphorus Magnesium Direct Bilirubin AST ALT Alkaline Phosphatase Lactate Dehydrogenase Troponin T C-Reactive Protein Total Protein Albumin Prealbumin Triglycerides Cholesterol LDL Cholesterol Direct HDL Cholesterol 25-OH Vitamin D Total PTH Intact Urine pH Urine WBC (Auto) Urine Creatinine Urine Total Protein Fluid Total Protein Vancomycin Trough Rheumatoid Factor Complement C4 Miscellaneous Test Crossmatch 01/16/17 01/16/17 01/16/17 17:52 23:57 Unknown WBC RBC Hgb Hct MCV MCH MCHC RDW Plt Count Lymph % (Auto) [place] % (Auto) Lymph # [place] # Baso # Seg Neutrophils % Seg Neuts % (Manual) Lymphocytes % (Manual) Monocytes % (Manual) Eosinophils % (Manual) Basophils % (Manual) Nucleated RBC % Seg Neutrophils # Seg Neutrophils # Man Lymphocytes # (Manual) Monocytes # (Manual) Eosinophils # (Manual) Basophils # (Manual) PT INR Fibrinogen dRVVT Confirm Interp Factor V Activity POC ABG pH POC ABG pCO2 POC ABG pO2 ABG pO2 ABG HCO3 ABG Base Excess ABG Hemoglobin Oxyhemoglobin Sodium 135 L Potassium Chloride Carbon Dioxide BUN 101 H Creatinine 1.8 H Glucose 117 H POC Glucose 130 H 143 H Lactic Acid Calcium Ionized Calcium Phosphorus 5.80 H Magnesium Direct Bilirubin AST ALT Alkaline Phosphatase Lactate Dehydrogenase Troponin T C-Reactive Protein Total Protein Albumin Prealbumin Triglycerides Cholesterol LDL Cholesterol Direct HDL Cholesterol 25-OH Vitamin D Total PTH Intact Urine pH Urine WBC (Auto) Urine Creatinine Urine Total Protein Fluid Total Protein Vancomycin Trough Rheumatoid Factor Complement C4 Miscellaneous Test Crossmatch 01/17/17 01/17/17 01/17/17 05:30 05:46 11:49 WBC RBC Hgb Hct MCV MCH MCHC RDW Plt Count Lymph % (Auto) [place] % (Auto) Lymph # [place] # Baso # Seg Neutrophils % Seg Neuts % (Manual) Lymphocytes % (Manual) Monocytes % (Manual) Eosinophils % (Manual) Basophils % (Manual) Nucleated RBC % Seg Neutrophils # Seg Neutrophils # Man Lymphocytes # (Manual) Monocytes # (Manual) Eosinophils # (Manual) Basophils # (Manual) PT INR Fibrinogen dRVVT Confirm Interp Factor V Activity POC ABG pH POC ABG pCO2 POC ABG pO2 ABG pO2 ABG HCO3 ABG Base Excess ABG Hemoglobin Oxyhemoglobin Sodium 134 L Potassium Chloride 95.8 L Carbon Dioxide BUN 66 H Creatinine 1.3 H Glucose 138 H POC Glucose 147 H 124 H Lactic Acid Calcium Ionized Calcium Phosphorus Magnesium Direct Bilirubin AST ALT Alkaline Phosphatase 254 H Lactate Dehydrogenase Troponin T C-Reactive Protein Total Protein Albumin 1.3 L Prealbumin Triglycerides Cholesterol LDL Cholesterol Direct HDL Cholesterol 25-OH Vitamin D Total PTH Intact Urine pH Urine WBC (Auto) Urine Creatinine Urine Total Protein Fluid Total Protein Vancomycin Trough Rheumatoid Factor Complement C4 Miscellaneous Test Crossmatch 01/17/17 01/17/17 01/18/17 17:30 23:41 05:15 WBC RBC Hgb Hct MCV MCH MCHC RDW Plt Count Lymph % (Auto) [place] % (Auto) Lymph # [place] # Baso # Seg Neutrophils % Seg Neuts % (Manual) Lymphocytes % (Manual) Monocytes % (Manual) Eosinophils % (Manual) Basophils % (Manual) Nucleated RBC % Seg Neutrophils # Seg Neutrophils # Man Lymphocytes # (Manual) Monocytes # (Manual) Eosinophils # (Manual) Basophils # (Manual) PT INR Fibrinogen dRVVT Confirm Interp Factor V Activity POC ABG pH POC ABG pCO2 POC ABG pO2 ABG pO2 ABG HCO3 ABG Base Excess ABG Hemoglobin Oxyhemoglobin Sodium Potassium Chloride Carbon Dioxide BUN 89 H Creatinine 1.7 H Glucose 118 H POC Glucose 137 H 119 H Lactic Acid Calcium Ionized Calcium Phosphorus Magnesium Direct Bilirubin AST ALT Alkaline Phosphatase Lactate Dehydrogenase Troponin T C-Reactive Protein Total Protein Albumin Prealbumin Triglycerides Cholesterol LDL Cholesterol Direct HDL Cholesterol 25-OH Vitamin D Total PTH Intact Urine pH Urine WBC (Auto) Urine Creatinine Urine Total Protein Fluid Total Protein Vancomycin Trough Rheumatoid Factor Complement C4 Miscellaneous Test Crossmatch 01/18/17 01/18/17 01/18/17 05:19 12:16 18:11 WBC RBC Hgb Hct MCV MCH MCHC RDW Plt Count Lymph % (Auto) [place] % (Auto) Lymph # [place] # Baso # Seg Neutrophils % Seg Neuts % (Manual) Lymphocytes % (Manual) Monocytes % (Manual) Eosinophils % (Manual) Basophils % (Manual) Nucleated RBC % Seg Neutrophils # Seg Neutrophils # Man Lymphocytes # (Manual) Monocytes # (Manual) Eosinophils # (Manual) Basophils # (Manual) PT INR Fibrinogen dRVVT Confirm Interp Factor V Activity POC ABG pH POC ABG pCO2 POC ABG pO2 ABG pO2 ABG HCO3 ABG Base Excess ABG Hemoglobin Oxyhemoglobin Sodium Potassium Chloride Carbon Dioxide BUN Creatinine Glucose POC Glucose 134 H 188 H 113 H Lactic Acid Calcium Ionized Calcium Phosphorus Magnesium Direct Bilirubin AST ALT Alkaline Phosphatase Lactate Dehydrogenase Troponin T C-Reactive Protein Total Protein Albumin Prealbumin Triglycerides Cholesterol LDL Cholesterol Direct HDL Cholesterol 25-OH Vitamin D Total PTH Intact Urine pH Urine WBC (Auto) Urine Creatinine Urine Total Protein Fluid Total Protein Vancomycin Trough Rheumatoid Factor Complement C4 Miscellaneous Test Crossmatch 01/19/17 01/19/17 01/19/17 00:00 05:30 05:36 WBC RBC Hgb Hct MCV MCH MCHC RDW Plt Count Lymph % (Auto) [place] % (Auto) Lymph # [place] # Baso # Seg Neutrophils % Seg Neuts % (Manual) Lymphocytes % (Manual) Monocytes % (Manual) Eosinophils % (Manual) Basophils % (Manual) Nucleated RBC % Seg Neutrophils # Seg Neutrophils # Man Lymphocytes # (Manual) Monocytes # (Manual) Eosinophils # (Manual) Basophils # (Manual) PT INR Fibrinogen dRVVT Confirm Interp Factor V Activity POC ABG pH POC ABG pCO2 POC ABG pO2 ABG pO2 ABG HCO3 ABG Base Excess ABG Hemoglobin Oxyhemoglobin Sodium Potassium Chloride Carbon Dioxide BUN 70 H Creatinine 1.5 H Glucose 121 H POC Glucose 137 H 155 H Lactic Acid Calcium Ionized Calcium Phosphorus 2.10 L D Magnesium Direct Bilirubin AST ALT Alkaline Phosphatase Lactate Dehydrogenase Troponin T C-Reactive Protein Total Protein Albumin Prealbumin Triglycerides Cholesterol LDL Cholesterol Direct HDL Cholesterol 25-OH Vitamin D Total PTH Intact Urine pH Urine WBC (Auto) Urine Creatinine Urine Total Protein Fluid Total Protein Vancomycin Trough Rheumatoid Factor Complement C4 Miscellaneous Test Crossmatch 01/19/17 01/19/17 01/19/17 11:59 15:32 17:57 WBC RBC Hgb Hct MCV MCH MCHC RDW Plt Count Lymph % (Auto) [place] % (Auto) Lymph # [place] # Baso # Seg Neutrophils % Seg Neuts % (Manual) Lymphocytes % (Manual) Monocytes % (Manual) Eosinophils % (Manual) Basophils % (Manual) Nucleated RBC % Seg Neutrophils # Seg Neutrophils # Man Lymphocytes # (Manual) Monocytes # (Manual) Eosinophils # (Manual) Basophils # (Manual) PT INR Fibrinogen dRVVT Confirm Interp Factor V Activity POC ABG pH POC ABG pCO2 33.1 L POC ABG pO2 76 L ABG pO2 ABG HCO3 ABG Base Excess ABG Hemoglobin Oxyhemoglobin Sodium Potassium Chloride Carbon Dioxide BUN Creatinine Glucose POC Glucose 156 H 129 H Lactic Acid Calcium Ionized Calcium Phosphorus Magnesium Direct Bilirubin AST ALT Alkaline Phosphatase Lactate Dehydrogenase Troponin T C-Reactive Protein Total Protein Albumin Prealbumin Triglycerides Cholesterol LDL Cholesterol Direct HDL Cholesterol 25-OH Vitamin D Total PTH Intact Urine pH Urine WBC (Auto) Urine Creatinine Urine Total Protein Fluid Total Protein Vancomycin Trough Rheumatoid Factor Complement C4 Miscellaneous Test Crossmatch 01/19/17 01/20/17 01/20/17 23:49 04:00 05:21 WBC RBC Hgb Hct MCV MCH MCHC RDW Plt Count Lymph % (Auto) [place] % (Auto) Lymph # [place] # Baso # Seg Neutrophils % Seg Neuts % (Manual) Lymphocytes % (Manual) Monocytes % (Manual) Eosinophils % (Manual) Basophils % (Manual) Nucleated RBC % Seg Neutrophils # Seg Neutrophils # Man Lymphocytes # (Manual) Monocytes # (Manual) Eosinophils # (Manual) Basophils # (Manual) PT INR Fibrinogen dRVVT Confirm Interp Factor V Activity POC ABG pH POC ABG pCO2 POC ABG pO2 ABG pO2 ABG HCO3 ABG Base Excess ABG Hemoglobin Oxyhemoglobin Sodium Potassium Chloride Carbon Dioxide BUN 96 H Creatinine 1.9 H Glucose 106 H POC Glucose 125 H 130 H Lactic Acid Calcium Ionized Calcium Phosphorus 2.40 L Magnesium Direct Bilirubin AST ALT Alkaline Phosphatase Lactate Dehydrogenase Troponin T C-Reactive Protein Total Protein Albumin Prealbumin Triglycerides Cholesterol LDL Cholesterol Direct HDL Cholesterol 25-OH Vitamin D Total PTH Intact Urine pH Urine WBC (Auto) Urine Creatinine Urine Total Protein Fluid Total Protein Vancomycin Trough Rheumatoid Factor Complement C4 Miscellaneous Test Crossmatch 01/20/17 01/20/17 01/20/17 11:58 12:17 17:26 WBC RBC Hgb Hct MCV MCH MCHC RDW Plt Count Lymph % (Auto) [place] % (Auto) Lymph # [place] # Baso # Seg Neutrophils % Seg Neuts % (Manual) Lymphocytes % (Manual) Monocytes % (Manual) Eosinophils % (Manual) Basophils % (Manual) Nucleated RBC % Seg Neutrophils # Seg Neutrophils # Man Lymphocytes # (Manual) Monocytes # (Manual) Eosinophils # (Manual) Basophils # (Manual) PT INR Fibrinogen dRVVT Confirm Interp Factor V Activity POC ABG pH POC ABG pCO2 POC ABG pO2 70 L ABG pO2 ABG HCO3 ABG Base Excess ABG Hemoglobin Oxyhemoglobin Sodium Potassium Chloride Carbon Dioxide BUN Creatinine Glucose POC Glucose 118 H 154 H Lactic Acid Calcium Ionized Calcium Phosphorus Magnesium Direct Bilirubin AST ALT Alkaline Phosphatase Lactate Dehydrogenase Troponin T C-Reactive Protein Total Protein Albumin Prealbumin Triglycerides Cholesterol LDL Cholesterol Direct HDL Cholesterol 25-OH Vitamin D Total PTH Intact Urine pH Urine WBC (Auto) Urine Creatinine Urine Total Protein Fluid Total Protein Vancomycin Trough Rheumatoid Factor Complement C4 Miscellaneous Test Crossmatch 01/21/17 01/21/17 01/21/17 04:00 04:56 11:46 WBC RBC Hgb Hct MCV MCH MCHC RDW Plt Count Lymph % (Auto) [place] % (Auto) Lymph # [place] # Baso # Seg Neutrophils % Seg Neuts % (Manual) Lymphocytes % (Manual) Monocytes % (Manual) Eosinophils % (Manual) Basophils % (Manual) Nucleated RBC % Seg Neutrophils # Seg Neutrophils # Man Lymphocytes # (Manual) Monocytes # (Manual) Eosinophils # (Manual) Basophils # (Manual) PT INR Fibrinogen dRVVT Confirm Interp Factor V Activity POC ABG pH POC ABG pCO2 POC ABG pO2 ABG pO2 ABG HCO3 ABG Base Excess ABG Hemoglobin Oxyhemoglobin Sodium Potassium 3.5 L Chloride 97.4 L Carbon Dioxide BUN 66 H Creatinine 1.4 H Glucose POC Glucose 116 H 106 H Lactic Acid Calcium Ionized Calcium Phosphorus 2.10 L Magnesium Direct Bilirubin AST ALT Alkaline Phosphatase Lactate Dehydrogenase Troponin T C-Reactive Protein Total Protein Albumin Prealbumin Triglycerides Cholesterol LDL Cholesterol Direct HDL Cholesterol 25-OH Vitamin D Total PTH Intact Urine pH Urine WBC (Auto) Urine Creatinine Urine Total Protein Fluid Total Protein Vancomycin Trough Rheumatoid Factor Complement C4 Miscellaneous Test Crossmatch 12/02/17 12/02/17 12/03/17 17:25 23:49 05:35 WBC RBC Hgb Hct MCV MCH MCHC RDW Plt Count Lymph % (Auto) [place] % (Auto) Lymph # [place] # Baso # Seg Neutrophils % Seg Neuts % (Manual) Lymphocytes % (Manual) Monocytes % (Manual) Eosinophils % (Manual) Basophils % (Manual) Nucleated RBC % Seg Neutrophils # Seg Neutrophils # Man Lymphocytes # (Manual) Monocytes # (Manual) Eosinophils # (Manual) Basophils # (Manual) PT INR Fibrinogen dRVVT Confirm Interp Factor V Activity POC ABG pH POC ABG pCO2 POC ABG pO2 ABG pO2 ABG HCO3 ABG Base Excess ABG Hemoglobin Oxyhemoglobin Sodium Potassium Chloride Carbon Dioxide BUN Creatinine Glucose POC Glucose 106 H 133 H 107 H Lactic Acid Calcium Ionized Calcium Phosphorus Magnesium Direct Bilirubin AST ALT Alkaline Phosphatase Lactate Dehydrogenase Troponin T C-Reactive Protein Total Protein Albumin Prealbumin Triglycerides Cholesterol LDL Cholesterol Direct HDL Cholesterol 25-OH Vitamin D Total PTH Intact Urine pH Urine WBC (Auto) Urine Creatinine Urine Total Protein Fluid Total Protein Vancomycin Trough Rheumatoid Factor Complement C4 Miscellaneous Test Crossmatch 01/22/17 01/22/17 01/22/17 07:20 07:20 11:31 WBC RBC 2.75 L Hgb 7.5 L Hct 22.7 L MCV MCH 27 L MCHC RDW 17.5 H Plt Count Lymph % (Auto) [place] % (Auto) Lymph # [place] # Baso # Seg Neutrophils % Seg Neuts % (Manual) Lymphocytes % (Manual) Monocytes % (Manual) Eosinophils % (Manual) Basophils % (Manual) Nucleated RBC % Seg Neutrophils # Seg Neutrophils # Man Lymphocytes # (Manual) Monocytes # (Manual) Eosinophils # (Manual) Basophils # (Manual) PT INR Fibrinogen dRVVT Confirm Interp Factor V Activity POC ABG pH POC ABG pCO2 POC ABG pO2 ABG pO2 ABG HCO3 ABG Base Excess ABG Hemoglobin Oxyhemoglobin Sodium Potassium 3.3 L Chloride Carbon Dioxide BUN 42 H Creatinine Glucose 105 H POC Glucose 124 H Lactic Acid Calcium Ionized Calcium Phosphorus 1.70 L Magnesium Direct Bilirubin AST ALT Alkaline Phosphatase Lactate Dehydrogenase Troponin T C-Reactive Protein Total Protein Albumin Prealbumin Triglycerides Cholesterol LDL Cholesterol Direct HDL Cholesterol 25-OH Vitamin D Total PTH Intact Urine pH Urine WBC (Auto) Urine Creatinine Urine Total Protein Fluid Total Protein Vancomycin Trough Rheumatoid Factor Complement C4 Miscellaneous Test Crossmatch 01/22/17 01/22/17 01/23/17 17:16 23:35 05:35 WBC RBC Hgb Hct MCV MCH MCHC RDW Plt Count Lymph % (Auto) [place] % (Auto) Lymph # [place] # Baso # Seg Neutrophils % Seg Neuts % (Manual) Lymphocytes % (Manual) Monocytes % (Manual) Eosinophils % (Manual) Basophils % (Manual) Nucleated RBC % Seg Neutrophils # Seg Neutrophils # Man Lymphocytes # (Manual) Monocytes # (Manual) Eosinophils # (Manual) Basophils # (Manual) PT INR Fibrinogen dRVVT Confirm Interp Factor V Activity POC ABG pH POC ABG pCO2 POC ABG pO2 ABG pO2 ABG HCO3 ABG Base Excess ABG Hemoglobin Oxyhemoglobin Sodium Potassium Chloride Carbon Dioxide BUN Creatinine Glucose POC Glucose 135 H 120 H 111 H Lactic Acid Calcium Ionized Calcium Phosphorus Magnesium Direct Bilirubin AST ALT Alkaline Phosphatase Lactate Dehydrogenase Troponin T C-Reactive Protein Total Protein Albumin Prealbumin Triglycerides Cholesterol LDL Cholesterol Direct HDL Cholesterol 25-OH Vitamin D Total PTH Intact Urine pH Urine WBC (Auto) Urine Creatinine Urine Total Protein Fluid Total Protein Vancomycin Trough Rheumatoid Factor Complement C4 Miscellaneous Test Crossmatch 01/23/17 01/23/17 01/23/17 06:10 17:27 23:44 WBC RBC Hgb Hct MCV MCH MCHC RDW Plt Count Lymph % (Auto) [place] % (Auto) Lymph # [place] # Baso # Seg Neutrophils % Seg Neuts % (Manual) Lymphocytes % (Manual) Monocytes % (Manual) Eosinophils % (Manual) Basophils % (Manual) Nucleated RBC % Seg Neutrophils # Seg Neutrophils # Man Lymphocytes # (Manual) Monocytes # (Manual) Eosinophils # (Manual) Basophils # (Manual) PT INR Fibrinogen dRVVT Confirm Interp Factor V Activity POC ABG pH POC ABG pCO2 POC ABG pO2 ABG pO2 ABG HCO3 ABG Base Excess ABG Hemoglobin Oxyhemoglobin Sodium Potassium 3.3 L Chloride Carbon Dioxide BUN 66 H Creatinine 1.3 H Glucose 109 H POC Glucose 120 H 115 H Lactic Acid Calcium Ionized Calcium Phosphorus 2.20 L D Magnesium Direct Bilirubin AST ALT Alkaline Phosphatase Lactate Dehydrogenase Troponin T C-Reactive Protein Total Protein Albumin Prealbumin Triglycerides Cholesterol LDL Cholesterol Direct HDL Cholesterol 25-OH Vitamin D Total PTH Intact Urine pH Urine WBC (Auto) Urine Creatinine Urine Total Protein Fluid Total Protein Vancomycin Trough Rheumatoid Factor Complement C4 Miscellaneous Test Crossmatch 01/24/17 01/24/17 01/24/17 05:19 05:50 12:19 WBC RBC Hgb Hct MCV MCH MCHC RDW Plt Count Lymph % (Auto) [place] % (Auto) Lymph # [place] # Baso # Seg Neutrophils % Seg Neuts % (Manual) Lymphocytes % (Manual) Monocytes % (Manual) Eosinophils % (Manual) Basophils % (Manual) Nucleated RBC % Seg Neutrophils # Seg Neutrophils # Man Lymphocytes # (Manual) Monocytes # (Manual) Eosinophils # (Manual) Basophils # (Manual) PT INR Fibrinogen dRVVT Confirm Interp Factor V Activity POC ABG pH POC ABG pCO2 POC ABG pO2 ABG pO2 ABG HCO3 ABG Base Excess ABG Hemoglobin Oxyhemoglobin Sodium Potassium Chloride Carbon Dioxide BUN 47 H Creatinine Glucose 117 H POC Glucose 126 H 119 H Lactic Acid Calcium Ionized Calcium Phosphorus 2.30 L Magnesium 1.60 L Direct Bilirubin AST ALT Alkaline Phosphatase Lactate Dehydrogenase Troponin T C-Reactive Protein Total Protein Albumin Prealbumin Triglycerides Cholesterol LDL Cholesterol Direct HDL Cholesterol 25-OH Vitamin D Total PTH Intact Urine pH Urine WBC (Auto) Urine Creatinine Urine Total Protein Fluid Total Protein Vancomycin Trough Rheumatoid Factor Complement C4 Miscellaneous Test Crossmatch 01/24/17 01/25/17 01/25/17 17:08 00:37 04:00 WBC RBC Hgb Hct MCV MCH MCHC RDW Plt Count Lymph % (Auto) [place] % (Auto) Lymph # [place] # Baso # Seg Neutrophils % Seg Neuts % (Manual) Lymphocytes % (Manual) Monocytes % (Manual) Eosinophils % (Manual) Basophils % (Manual) Nucleated RBC % Seg Neutrophils # Seg Neutrophils # Man Lymphocytes # (Manual) Monocytes # (Manual) Eosinophils # (Manual) Basophils # (Manual) PT INR Fibrinogen dRVVT Confirm Interp Factor V Activity POC ABG pH POC ABG pCO2 POC ABG pO2 ABG pO2 ABG HCO3 ABG Base Excess ABG Hemoglobin Oxyhemoglobin Sodium Potassium Chloride Carbon Dioxide BUN 72 H Creatinine 1.3 H Glucose POC Glucose 127 H 110 H Lactic Acid Calcium Ionized Calcium Phosphorus Magnesium Direct Bilirubin AST ALT Alkaline Phosphatase Lactate Dehydrogenase Troponin T C-Reactive Protein Total Protein Albumin Prealbumin Triglycerides Cholesterol LDL Cholesterol Direct HDL Cholesterol 25-OH Vitamin D Total PTH Intact Urine pH Urine WBC (Auto) Urine Creatinine Urine Total Protein Fluid Total Protein Vancomycin Trough Rheumatoid Factor Complement C4 Miscellaneous Test Crossmatch 01/25/17 01/25/17 01/25/17 04:00 11:15 13:05 WBC RBC 2.49 L Hgb 6.7 L Hct 20.9 L MCV MCH 27 L MCHC RDW 18.8 H Plt Count Lymph % (Auto) [place] % (Auto) 10.1 H Lymph # [place] # 1.0 H Baso # Seg Neutrophils % Seg Neuts % (Manual) Lymphocytes % (Manual) Monocytes % (Manual) Eosinophils % (Manual) Basophils % (Manual) Nucleated RBC % Seg Neutrophils # Seg Neutrophils # Man Lymphocytes # (Manual) Monocytes # (Manual) Eosinophils # (Manual) Basophils # (Manual) PT INR Fibrinogen dRVVT Confirm Interp Factor V Activity POC ABG pH POC ABG pCO2 POC ABG pO2 ABG pO2 ABG HCO3 ABG Base Excess ABG Hemoglobin Oxyhemoglobin Sodium Potassium Chloride Carbon Dioxide BUN Creatinine Glucose POC Glucose 128 H Lactic Acid Calcium Ionized Calcium Phosphorus Magnesium Direct Bilirubin AST ALT Alkaline Phosphatase Lactate Dehydrogenase Troponin T C-Reactive Protein Total Protein Albumin Prealbumin Triglycerides Cholesterol LDL Cholesterol Direct HDL Cholesterol 25-OH Vitamin D Total PTH Intact Urine pH Urine WBC (Auto) Urine Creatinine Urine Total Protein Fluid Total Protein Vancomycin Trough Rheumatoid Factor Complement C4 Miscellaneous Test Crossmatch See Detail 01/25/17 01/25/17 01/26/17 18:02 23:07 01:20 WBC RBC Hgb Hct MCV MCH MCHC RDW Plt Count Lymph % (Auto) [place] % (Auto) Lymph # [place] # Baso # Seg Neutrophils % Seg Neuts % (Manual) Lymphocytes % (Manual) Monocytes % (Manual) Eosinophils % (Manual) Basophils % (Manual) Nucleated RBC % Seg Neutrophils # Seg Neutrophils # Man Lymphocytes # (Manual) Monocytes # (Manual) Eosinophils # (Manual) Basophils # (Manual) PT INR Fibrinogen dRVVT Confirm Interp Factor V Activity POC ABG pH POC ABG pCO2 POC ABG pO2 ABG pO2 ABG HCO3 ABG Base Excess ABG Hemoglobin Oxyhemoglobin Sodium Potassium Chloride Carbon Dioxide BUN Creatinine Glucose POC Glucose 120 H 123 H 112 H Lactic Acid Calcium Ionized Calcium Phosphorus Magnesium Direct Bilirubin AST ALT Alkaline Phosphatase Lactate Dehydrogenase Troponin T C-Reactive Protein Total Protein Albumin Prealbumin Triglycerides Cholesterol LDL Cholesterol Direct HDL Cholesterol 25-OH Vitamin D Total PTH Intact Urine pH Urine WBC (Auto) Urine Creatinine Urine Total Protein Fluid Total Protein Vancomycin Trough Rheumatoid Factor Complement C4 Miscellaneous Test Crossmatch 01/26/17 01/26/17 01/26/17 04:20 04:20 11:23 WBC 13.1 H RBC 3.28 L Hgb 9.0 L Hct 26.9 L D MCV MCH 27 L MCHC RDW 17.2 H Plt Count Lymph % (Auto) [place] % (Auto) 9.0 H Lymph # [place] # 1.2 H Baso # Seg Neutrophils % 73.1 H Seg Neuts % (Manual) Lymphocytes % (Manual) Monocytes % (Manual) Eosinophils % (Manual) Basophils % (Manual) Nucleated RBC % Seg Neutrophils # 9.6 H Seg Neutrophils # Man Lymphocytes # (Manual) Monocytes # (Manual) Eosinophils # (Manual) Basophils # (Manual) PT INR Fibrinogen dRVVT Confirm Interp Factor V Activity POC ABG pH POC ABG pCO2 POC ABG pO2 ABG pO2 ABG HCO3 ABG Base Excess ABG Hemoglobin Oxyhemoglobin Sodium Potassium Chloride Carbon Dioxide BUN 51 H Creatinine Glucose 117 H POC Glucose 125 H Lactic Acid Calcium Ionized Calcium Phosphorus Magnesium Direct Bilirubin AST ALT Alkaline Phosphatase Lactate Dehydrogenase Troponin T C-Reactive Protein Total Protein Albumin Prealbumin Triglycerides Cholesterol LDL Cholesterol Direct HDL Cholesterol 25-OH Vitamin D Total PTH Intact Urine pH Urine WBC (Auto) Urine Creatinine Urine Total Protein Fluid Total Protein Vancomycin Trough Rheumatoid Factor Complement C4 Miscellaneous Test Crossmatch 01/26/17 01/27/17 01/27/17 17:11 00:30 04:00 WBC RBC Hgb Hct MCV MCH MCHC RDW Plt Count Lymph % (Auto) [place] % (Auto) Lymph # [place] # Baso # Seg Neutrophils % Seg Neuts % (Manual) Lymphocytes % (Manual) Monocytes % (Manual) Eosinophils % (Manual) Basophils % (Manual) Nucleated RBC % Seg Neutrophils # Seg Neutrophils # Man Lymphocytes # (Manual) Monocytes # (Manual) Eosinophils # (Manual) Basophils # (Manual) PT INR Fibrinogen dRVVT Confirm Interp Factor V Activity POC ABG pH POC ABG pCO2 POC ABG pO2 ABG pO2 ABG HCO3 ABG Base Excess ABG Hemoglobin Oxyhemoglobin Sodium Potassium Chloride 97.7 L Carbon Dioxide 21 L BUN 79 H Creatinine 1.7 H D Glucose 112 H POC Glucose 133 H 135 H Lactic Acid Calcium Ionized Calcium Phosphorus 5.00 H D Magnesium Direct Bilirubin AST ALT Alkaline Phosphatase Lactate Dehydrogenase Troponin T C-Reactive Protein Total Protein Albumin Prealbumin Triglycerides Cholesterol LDL Cholesterol Direct HDL Cholesterol 25-OH Vitamin D Total PTH Intact Urine pH Urine WBC (Auto) Urine Creatinine Urine Total Protein Fluid Total Protein Vancomycin Trough Rheumatoid Factor Complement C4 Miscellaneous Test Crossmatch 01/27/17 01/27/17 01/27/17 05:12 12:18 17:25 WBC RBC Hgb Hct MCV MCH MCHC RDW Plt Count Lymph % (Auto) [place] % (Auto) Lymph # [place] # Baso # Seg Neutrophils % Seg Neuts % (Manual) Lymphocytes % (Manual) Monocytes % (Manual) Eosinophils % (Manual) Basophils % (Manual) Nucleated RBC % Seg Neutrophils # Seg Neutrophils # Man Lymphocytes # (Manual) Monocytes # (Manual) Eosinophils # (Manual) Basophils # (Manual) PT INR Fibrinogen dRVVT Confirm Interp Factor V Activity POC ABG pH POC ABG pCO2 POC ABG pO2 ABG pO2 ABG HCO3 ABG Base Excess ABG Hemoglobin Oxyhemoglobin Sodium Potassium Chloride Carbon Dioxide BUN Creatinine Glucose POC Glucose 116 H 153 H 152 H Lactic Acid Calcium Ionized Calcium Phosphorus Magnesium Direct Bilirubin AST ALT Alkaline Phosphatase Lactate Dehydrogenase Troponin T C-Reactive Protein Total Protein Albumin Prealbumin Triglycerides Cholesterol LDL Cholesterol Direct HDL Cholesterol 25-OH Vitamin D Total PTH Intact Urine pH Urine WBC (Auto) Urine Creatinine Urine Total Protein Fluid Total Protein Vancomycin Trough Rheumatoid Factor Complement C4 Miscellaneous Test Crossmatch 01/27/17 01/28/17 01/28/17 23:42 04:00 04:00 WBC 14.4 H RBC 2.82 L Hgb 7.4 L Hct 23.5 L MCV MCH 26 L MCHC RDW 17.6 H Plt Count Lymph % (Auto) 10.2 L [place] % (Auto) 11.0 H Lymph # [place] # 1.6 H Baso # Seg Neutrophils % 78.0 H Seg Neuts % (Manual) Lymphocytes % (Manual) Monocytes % (Manual) Eosinophils % (Manual) Basophils % (Manual) Nucleated RBC % Seg Neutrophils # 11.3 H Seg Neutrophils # Man Lymphocytes # (Manual) Monocytes # (Manual) Eosinophils # (Manual) Basophils # (Manual) PT INR Fibrinogen dRVVT Confirm Interp Factor V Activity POC ABG pH POC ABG pCO2 POC ABG pO2 ABG pO2 ABG HCO3 ABG Base Excess ABG Hemoglobin Oxyhemoglobin Sodium Potassium Chloride Carbon Dioxide BUN 55 H Creatinine 1.3 H Glucose 114 H POC Glucose 121 H Lactic Acid Calcium Ionized Calcium Phosphorus Magnesium Direct Bilirubin AST ALT Alkaline Phosphatase Lactate Dehydrogenase Troponin T C-Reactive Protein Total Protein Albumin 1.4 L Prealbumin Triglycerides Cholesterol LDL Cholesterol Direct HDL Cholesterol 25-OH Vitamin D Total PTH Intact Urine pH Urine WBC (Auto) Urine Creatinine Urine Total Protein Fluid Total Protein Vancomycin Trough Rheumatoid Factor Complement C4 Miscellaneous Test Crossmatch 01/28/17 01/28/17 01/29/17 04:59 12:30 00:02 WBC RBC Hgb Hct MCV MCH MCHC RDW Plt Count Lymph % (Auto) [place] % (Auto) Lymph # [place] # Baso # Seg Neutrophils % Seg Neuts % (Manual) Lymphocytes % (Manual) Monocytes % (Manual) Eosinophils % (Manual) Basophils % (Manual) Nucleated RBC % Seg Neutrophils # Seg Neutrophils # Man Lymphocytes # (Manual) Monocytes # (Manual) Eosinophils # (Manual) Basophils # (Manual) PT INR Fibrinogen dRVVT Confirm Interp Factor V Activity POC ABG pH POC ABG pCO2 POC ABG pO2 ABG pO2 ABG HCO3 ABG Base Excess ABG Hemoglobin Oxyhemoglobin Sodium Potassium Chloride Carbon Dioxide BUN Creatinine Glucose POC Glucose 126 H 119 H 138 H Lactic Acid Calcium Ionized Calcium Phosphorus Magnesium Direct Bilirubin AST ALT Alkaline Phosphatase Lactate Dehydrogenase Troponin T C-Reactive Protein Total Protein Albumin Prealbumin Triglycerides Cholesterol LDL Cholesterol Direct HDL Cholesterol 25-OH Vitamin D Total PTH Intact Urine pH Urine WBC (Auto) Urine Creatinine Urine Total Protein Fluid Total Protein Vancomycin Trough Rheumatoid Factor Complement C4 Miscellaneous Test Crossmatch 01/29/17 01/29/17 01/29/17 04:58 06:15 11:35 WBC RBC Hgb Hct MCV MCH MCHC RDW Plt Count Lymph % (Auto) [place] % (Auto) Lymph # [place] # Baso # Seg Neutrophils % Seg Neuts % (Manual) Lymphocytes % (Manual) Monocytes % (Manual) Eosinophils % (Manual) Basophils % (Manual) Nucleated RBC % Seg Neutrophils # Seg Neutrophils # Man Lymphocytes # (Manual) Monocytes # (Manual) Eosinophils # (Manual) Basophils # (Manual) PT INR Fibrinogen dRVVT Confirm Interp Factor V Activity POC ABG pH POC ABG pCO2 POC ABG pO2 ABG pO2 ABG HCO3 ABG Base Excess ABG Hemoglobin Oxyhemoglobin Sodium Potassium Chloride Carbon Dioxide BUN 85 H Creatinine 1.7 H Glucose 105 H POC Glucose 114 H 110 H Lactic Acid Calcium Ionized Calcium Phosphorus Magnesium 2.40 H Direct Bilirubin AST ALT Alkaline Phosphatase Lactate Dehydrogenase Troponin T C-Reactive Protein Total Protein Albumin Prealbumin Triglycerides Cholesterol LDL Cholesterol Direct HDL Cholesterol 25-OH Vitamin D Total PTH Intact Urine pH Urine WBC (Auto) Urine Creatinine Urine Total Protein Fluid Total Protein Vancomycin Trough Rheumatoid Factor Complement C4 Miscellaneous Test Crossmatch 01/29/17 01/29/17 01/30/17 18:24 23:41 05:12 WBC RBC Hgb Hct MCV MCH MCHC RDW Plt Count Lymph % (Auto) [place] % (Auto) Lymph # [place] # Baso # Seg Neutrophils % Seg Neuts % (Manual) Lymphocytes % (Manual) Monocytes % (Manual) Eosinophils % (Manual) Basophils % (Manual) Nucleated RBC % Seg Neutrophils # Seg Neutrophils # Man Lymphocytes # (Manual) Monocytes # (Manual) Eosinophils # (Manual) Basophils # (Manual) PT INR Fibrinogen dRVVT Confirm Interp Factor V Activity POC ABG pH POC ABG pCO2 POC ABG pO2 ABG pO2 ABG HCO3 ABG Base Excess ABG Hemoglobin Oxyhemoglobin Sodium Potassium Chloride Carbon Dioxide BUN Creatinine Glucose POC Glucose 109 H 134 H 109 H Lactic Acid Calcium Ionized Calcium Phosphorus Magnesium Direct Bilirubin AST ALT Alkaline Phosphatase Lactate Dehydrogenase Troponin T C-Reactive Protein Total Protein Albumin Prealbumin Triglycerides Cholesterol LDL Cholesterol Direct HDL Cholesterol 25-OH Vitamin D Total PTH Intact Urine pH Urine WBC (Auto) Urine Creatinine Urine Total Protein Fluid Total Protein Vancomycin Trough Rheumatoid Factor Complement C4 Miscellaneous Test Crossmatch 01/30/17 01/30/17 01/30/17 11:26 17:43 23:39 WBC RBC Hgb Hct MCV MCH MCHC RDW Plt Count Lymph % (Auto) [place] % (Auto) Lymph # [place] # Baso # Seg Neutrophils % Seg Neuts % (Manual) Lymphocytes % (Manual) Monocytes % (Manual) Eosinophils % (Manual) Basophils % (Manual) Nucleated RBC % Seg Neutrophils # Seg Neutrophils # Man Lymphocytes # (Manual) Monocytes # (Manual) Eosinophils # (Manual) Basophils # (Manual) PT INR Fibrinogen dRVVT Confirm Interp Factor V Activity POC ABG pH POC ABG pCO2 POC ABG pO2 ABG pO2 ABG HCO3 ABG Base Excess ABG Hemoglobin Oxyhemoglobin Sodium Potassium Chloride Carbon Dioxide BUN Creatinine Glucose POC Glucose 135 H 143 H 122 H Lactic Acid Calcium Ionized Calcium Phosphorus Magnesium Direct Bilirubin AST ALT Alkaline Phosphatase Lactate Dehydrogenase Troponin T C-Reactive Protein Total Protein Albumin Prealbumin Triglycerides Cholesterol LDL Cholesterol Direct HDL Cholesterol 25-OH Vitamin D Total PTH Intact Urine pH Urine WBC (Auto) Urine Creatinine Urine Total Protein Fluid Total Protein Vancomycin Trough Rheumatoid Factor Complement C4 Miscellaneous Test Crossmatch 01/31/17 01/31/17 01/31/17 04:00 05:40 11:12 WBC RBC Hgb Hct MCV MCH MCHC RDW Plt Count Lymph % (Auto) [place] % (Auto) Lymph # [place] # Baso # Seg Neutrophils % Seg Neuts % (Manual) Lymphocytes % (Manual) Monocytes % (Manual) Eosinophils % (Manual) Basophils % (Manual) Nucleated RBC % Seg Neutrophils # Seg Neutrophils # Man Lymphocytes # (Manual) Monocytes # (Manual) Eosinophils # (Manual) Basophils # (Manual) PT INR Fibrinogen dRVVT Confirm Interp Factor V Activity POC ABG pH POC ABG pCO2 POC ABG pO2 ABG pO2 ABG HCO3 ABG Base Excess ABG Hemoglobin Oxyhemoglobin Sodium Potassium Chloride Carbon Dioxide BUN 78 H Creatinine 1.5 H Glucose 108 H POC Glucose 123 H Lactic Acid Calcium Ionized Calcium Phosphorus Magnesium Direct Bilirubin AST ALT Alkaline Phosphatase Lactate Dehydrogenase Troponin T C-Reactive Protein 8.10 H Total Protein Albumin Prealbumin Triglycerides Cholesterol LDL Cholesterol Direct HDL Cholesterol 25-OH Vitamin D Total PTH Intact Urine pH Urine WBC (Auto) Urine Creatinine Urine Total Protein Fluid Total Protein Vancomycin Trough Rheumatoid Factor Complement C4 Miscellaneous Test Crossmatch 01/31/17 01/31/17 01/31/17 11:16 17:45 17:50 WBC RBC Hgb Hct MCV MCH MCHC RDW Plt Count Lymph % (Auto) [place] % (Auto) Lymph # [place] # Baso # Seg Neutrophils % Seg Neuts % (Manual) Lymphocytes % (Manual) Monocytes % (Manual) Eosinophils % (Manual) Basophils % (Manual) Nucleated RBC % Seg Neutrophils # Seg Neutrophils # Man Lymphocytes # (Manual) Monocytes # (Manual) Eosinophils # (Manual) Basophils # (Manual) PT INR Fibrinogen dRVVT Confirm Interp Factor V Activity POC ABG pH POC ABG pCO2 POC ABG pO2 ABG pO2 ABG HCO3 ABG Base Excess ABG Hemoglobin Oxyhemoglobin Sodium Potassium Chloride Carbon Dioxide BUN Creatinine Glucose POC Glucose 119 H 111 H Lactic Acid Calcium Ionized Calcium Phosphorus Magnesium Direct Bilirubin AST ALT Alkaline Phosphatase Lactate Dehydrogenase Troponin T C-Reactive Protein Total Protein Albumin Prealbumin Triglycerides Cholesterol LDL Cholesterol Direct HDL Cholesterol 25-OH Vitamin D Total PTH Intact 6.76 L Urine pH Urine WBC (Auto) Urine Creatinine Urine Total Protein Fluid Total Protein Vancomycin Trough Rheumatoid Factor Complement C4 Miscellaneous Test Crossmatch 01/31/17 02/01/17 02/01/17 23:19 05:42 09:24 WBC RBC Hgb Hct MCV MCH MCHC RDW Plt Count Lymph % (Auto) [place] % (Auto) Lymph # [place] # Baso # Seg Neutrophils % Seg Neuts % (Manual) Lymphocytes % (Manual) Monocytes % (Manual) Eosinophils % (Manual) Basophils % (Manual) Nucleated RBC % Seg Neutrophils # Seg Neutrophils # Man Lymphocytes # (Manual) Monocytes # (Manual) Eosinophils # (Manual) Basophils # (Manual) PT INR Fibrinogen dRVVT Confirm Interp Factor V Activity POC ABG pH POC ABG pCO2 POC ABG pO2 ABG pO2 ABG HCO3 ABG Base Excess ABG Hemoglobin Oxyhemoglobin Sodium Potassium Chloride Carbon Dioxide BUN Creatinine Glucose POC Glucose 118 H 122 H Lactic Acid Calcium Ionized Calcium Phosphorus Magnesium 2.60 H Direct Bilirubin AST ALT Alkaline Phosphatase Lactate Dehydrogenase Troponin T C-Reactive Protein Total Protein Albumin Prealbumin Triglycerides Cholesterol LDL Cholesterol Direct HDL Cholesterol 25-OH Vitamin D Total PTH Intact Urine pH Urine WBC (Auto) Urine Creatinine Urine Total Protein Fluid Total Protein Vancomycin Trough Rheumatoid Factor Complement C4 Miscellaneous Test Crossmatch 02/01/17 02/01/17 02/02/17 09:24 12:15 07:40 WBC RBC Hgb Hct MCV MCH MCHC RDW Plt Count Lymph % (Auto) [place] % (Auto) Lymph # [place] # Baso # Seg Neutrophils % Seg Neuts % (Manual) Lymphocytes % (Manual) Monocytes % (Manual) Eosinophils % (Manual) Basophils % (Manual) Nucleated RBC % Seg Neutrophils # Seg Neutrophils # Man Lymphocytes # (Manual) Monocytes # (Manual) Eosinophils # (Manual) Basophils # (Manual) PT INR Fibrinogen dRVVT Confirm Interp Factor V Activity POC ABG pH POC ABG pCO2 POC ABG pO2 ABG pO2 ABG HCO3 ABG Base Excess ABG Hemoglobin Oxyhemoglobin Sodium Potassium Chloride Carbon Dioxide BUN 102 H 72 H Creatinine 1.9 H 1.5 H Glucose 120 H POC Glucose 156 H Lactic Acid Calcium Ionized Calcium Phosphorus Magnesium Direct Bilirubin AST ALT Alkaline Phosphatase Lactate Dehydrogenase Troponin T C-Reactive Protein Total Protein Albumin Prealbumin Triglycerides Cholesterol LDL Cholesterol Direct HDL Cholesterol 25-OH Vitamin D Total PTH Intact Urine pH Urine WBC (Auto) Urine Creatinine Urine Total Protein Fluid Total Protein Vancomycin Trough Rheumatoid Factor Complement C4 Miscellaneous Test Crossmatch 02/02/17 02/02/17 02/03/17 10:16 12:11 00:08 WBC 12.0 H RBC 3.08 L Hgb 8.3 L Hct 25.6 L MCV MCH 27 L MCHC RDW 18.2 H Plt Count Lymph % (Auto) [place] % (Auto) Lymph # [place] # Baso # Seg Neutrophils % 78.4 H Seg Neuts % (Manual) Lymphocytes % (Manual) Monocytes % (Manual) Eosinophils % (Manual) Basophils % (Manual) Nucleated RBC % Seg Neutrophils # 9.4 H Seg Neutrophils # Man Lymphocytes # (Manual) Monocytes # (Manual) Eosinophils # (Manual) Basophils # (Manual) PT INR Fibrinogen dRVVT Confirm Interp Factor V Activity POC ABG pH POC ABG pCO2 POC ABG pO2 ABG pO2 ABG HCO3 ABG Base Excess ABG Hemoglobin Oxyhemoglobin Sodium Potassium Chloride Carbon Dioxide BUN Creatinine Glucose POC Glucose 110 H 120 H Lactic Acid Calcium Ionized Calcium Phosphorus Magnesium Direct Bilirubin AST ALT Alkaline Phosphatase Lactate Dehydrogenase Troponin T C-Reactive Protein Total Protein Albumin Prealbumin Triglycerides Cholesterol LDL Cholesterol Direct HDL Cholesterol 25-OH Vitamin D Total PTH Intact Urine pH Urine WBC (Auto) Urine Creatinine Urine Total Protein Fluid Total Protein Vancomycin Trough Rheumatoid Factor Complement C4 Miscellaneous Test Crossmatch 02/03/17 02/03/17 02/03/17 05:41 07:38 11:31 WBC RBC Hgb Hct MCV MCH MCHC RDW Plt Count Lymph % (Auto) [place] % (Auto) Lymph # [place] # Baso # Seg Neutrophils % Seg Neuts % (Manual) Lymphocytes % (Manual) Monocytes % (Manual) Eosinophils % (Manual) Basophils % (Manual) Nucleated RBC % Seg Neutrophils # Seg Neutrophils # Man Lymphocytes # (Manual) Monocytes # (Manual) Eosinophils # (Manual) Basophils # (Manual) PT INR Fibrinogen dRVVT Confirm Interp Factor V Activity POC ABG pH POC ABG pCO2 POC ABG pO2 ABG pO2 ABG HCO3 ABG Base Excess ABG Hemoglobin Oxyhemoglobin Sodium 134 L Potassium Chloride Carbon Dioxide 21 L BUN 91 H Creatinine 1.9 H Glucose 110 H POC Glucose 119 H 119 H Lactic Acid Calcium 10.3 H Ionized Calcium Phosphorus Magnesium Direct Bilirubin AST ALT Alkaline Phosphatase Lactate Dehydrogenase Troponin T C-Reactive Protein Total Protein Albumin Prealbumin Triglycerides Cholesterol LDL Cholesterol Direct HDL Cholesterol 25-OH Vitamin D Total PTH Intact Urine pH Urine WBC (Auto) Urine Creatinine Urine Total Protein Fluid Total Protein Vancomycin Trough Rheumatoid Factor Complement C4 Miscellaneous Test Crossmatch 02/03/17 02/04/17 02/04/17 17:13 04:00 05:18 WBC RBC Hgb Hct MCV MCH MCHC RDW Plt Count Lymph % (Auto) [place] % (Auto) Lymph # [place] # Baso # Seg Neutrophils % Seg Neuts % (Manual) Lymphocytes % (Manual) Monocytes % (Manual) Eosinophils % (Manual) Basophils % (Manual) Nucleated RBC % Seg Neutrophils # Seg Neutrophils # Man Lymphocytes # (Manual) Monocytes # (Manual) Eosinophils # (Manual) Basophils # (Manual) PT INR Fibrinogen dRVVT Confirm Interp Factor V Activity POC ABG pH POC ABG pCO2 POC ABG pO2 ABG pO2 ABG HCO3 ABG Base Excess ABG Hemoglobin Oxyhemoglobin Sodium 136 L Potassium Chloride Carbon Dioxide BUN 58 H Creatinine 1.3 H Glucose 103 H POC Glucose 133 H 132 H Lactic Acid Calcium Ionized Calcium Phosphorus 2.00 L D Magnesium 1.60 L Direct Bilirubin AST ALT Alkaline Phosphatase Lactate Dehydrogenase Troponin T C-Reactive Protein Total Protein Albumin Prealbumin Triglycerides Cholesterol LDL Cholesterol Direct HDL Cholesterol 25-OH Vitamin D Total PTH Intact Urine pH Urine WBC (Auto) Urine Creatinine Urine Total Protein Fluid Total Protein Vancomycin Trough Rheumatoid Factor Complement C4 Miscellaneous Test Crossmatch 02/05/17 02/05/17 02/05/17 00:01 04:00 06:42 WBC RBC Hgb Hct MCV MCH MCHC RDW Plt Count Lymph % (Auto) [place] % (Auto) Lymph # [place] # Baso # Seg Neutrophils % Seg Neuts % (Manual) Lymphocytes % (Manual) Monocytes % (Manual) Eosinophils % (Manual) Basophils % (Manual) Nucleated RBC % Seg Neutrophils # Seg Neutrophils # Man Lymphocytes # (Manual) Monocytes # (Manual) Eosinophils # (Manual) Basophils # (Manual) PT INR Fibrinogen dRVVT Confirm Interp Factor V Activity POC ABG pH POC ABG pCO2 POC ABG pO2 ABG pO2 ABG HCO3 ABG Base Excess ABG Hemoglobin Oxyhemoglobin Sodium Potassium Chloride Carbon Dioxide BUN 83 H Creatinine 1.8 H Glucose POC Glucose 119 H 110 H Lactic Acid Calcium 10.7 H Ionized Calcium Phosphorus Magnesium Direct Bilirubin AST ALT Alkaline Phosphatase Lactate Dehydrogenase Troponin T C-Reactive Protein Total Protein Albumin Prealbumin Triglycerides Cholesterol LDL Cholesterol Direct HDL Cholesterol 25-OH Vitamin D Total PTH Intact Urine pH Urine WBC (Auto) Urine Creatinine Urine Total Protein Fluid Total Protein Vancomycin Trough Rheumatoid Factor Complement C4 Miscellaneous Test Crossmatch 02/05/17 02/05/17 02/05/17 09:59 11:47 23:44 WBC RBC 2.69 L Hgb 7.2 L Hct 22.5 L MCV MCH 27 L MCHC RDW 18.6 H Plt Count Lymph % (Auto) [place] % (Auto) 9.2 H Lymph # [place] # 0.9 H Baso # Seg Neutrophils % Seg Neuts % (Manual) Lymphocytes % (Manual) Monocytes % (Manual) Eosinophils % (Manual) Basophils % (Manual) Nucleated RBC % Seg Neutrophils # Seg Neutrophils # Man Lymphocytes # (Manual) Monocytes # (Manual) Eosinophils # (Manual) Basophils # (Manual) PT INR Fibrinogen dRVVT Confirm Interp Factor V Activity POC ABG pH POC ABG pCO2 POC ABG pO2 ABG pO2 ABG HCO3 ABG Base Excess ABG Hemoglobin Oxyhemoglobin Sodium Potassium Chloride Carbon Dioxide BUN Creatinine Glucose POC Glucose 130 H 123 H Lactic Acid Calcium Ionized Calcium Phosphorus Magnesium Direct Bilirubin AST ALT Alkaline Phosphatase Lactate Dehydrogenase Troponin T C-Reactive Protein Total Protein Albumin Prealbumin Triglycerides Cholesterol LDL Cholesterol Direct HDL Cholesterol 25-OH Vitamin D Total PTH Intact Urine pH Urine WBC (Auto) Urine Creatinine Urine Total Protein Fluid Total Protein Vancomycin Trough Rheumatoid Factor Complement C4 Miscellaneous Test Crossmatch 02/06/17 02/06/17 02/06/17 04:45 05:58 12:01 WBC RBC Hgb Hct MCV MCH MCHC RDW Plt Count Lymph % (Auto) [place] % (Auto) Lymph # [place] # Baso # Seg Neutrophils % Seg Neuts % (Manual) Lymphocytes % (Manual) Monocytes % (Manual) Eosinophils % (Manual) Basophils % (Manual) Nucleated RBC % Seg Neutrophils # Seg Neutrophils # Man Lymphocytes # (Manual) Monocytes # (Manual) Eosinophils # (Manual) Basophils # (Manual) PT INR Fibrinogen dRVVT Confirm Interp Factor V Activity POC ABG pH POC ABG pCO2 POC ABG pO2 ABG pO2 ABG HCO3 ABG Base Excess ABG Hemoglobin Oxyhemoglobin Sodium Potassium Chloride Carbon Dioxide BUN 101 H Creatinine 2.0 H Glucose 102 H POC Glucose 115 H 132 H Lactic Acid Calcium 10.6 H Ionized Calcium Phosphorus Magnesium Direct Bilirubin AST ALT Alkaline Phosphatase 199 H Lactate Dehydrogenase Troponin T C-Reactive Protein Total Protein Albumin 1.4 L Prealbumin Triglycerides Cholesterol LDL Cholesterol Direct HDL Cholesterol 25-OH Vitamin D Total PTH Intact Urine pH Urine WBC (Auto) Urine Creatinine Urine Total Protein Fluid Total Protein Vancomycin Trough Rheumatoid Factor Complement C4 Miscellaneous Test Crossmatch 02/06/17 02/06/17 02/07/17 17:41 23:32 05:04 WBC RBC Hgb Hct MCV MCH MCHC RDW Plt Count Lymph % (Auto) [place] % (Auto) Lymph # [place] # Baso # Seg Neutrophils % Seg Neuts % (Manual) Lymphocytes % (Manual) Monocytes % (Manual) Eosinophils % (Manual) Basophils % (Manual) Nucleated RBC % Seg Neutrophils # Seg Neutrophils # Man Lymphocytes # (Manual) Monocytes # (Manual) Eosinophils # (Manual) Basophils # (Manual) PT INR Fibrinogen dRVVT Confirm Interp Factor V Activity POC ABG pH POC ABG pCO2 POC ABG pO2 ABG pO2 ABG HCO3 ABG Base Excess ABG Hemoglobin Oxyhemoglobin Sodium Potassium Chloride Carbon Dioxide BUN Creatinine Glucose POC Glucose 134 H 128 H 119 H Lactic Acid Calcium Ionized Calcium Phosphorus Magnesium Direct Bilirubin AST ALT Alkaline Phosphatase Lactate Dehydrogenase Troponin T C-Reactive Protein Total Protein Albumin Prealbumin Triglycerides Cholesterol LDL Cholesterol Direct HDL Cholesterol 25-OH Vitamin D Total PTH Intact Urine pH Urine WBC (Auto) Urine Creatinine Urine Total Protein Fluid Total Protein Vancomycin Trough Rheumatoid Factor Complement C4 Miscellaneous Test Crossmatch 02/07/17 02/07/17 02/07/17 06:30 11:20 17:13 WBC RBC Hgb Hct MCV MCH MCHC RDW Plt Count Lymph % (Auto) [place] % (Auto) Lymph # [place] # Baso # Seg Neutrophils % Seg Neuts % (Manual) Lymphocytes % (Manual) Monocytes % (Manual) Eosinophils % (Manual) Basophils % (Manual) Nucleated RBC % Seg Neutrophils # Seg Neutrophils # Man Lymphocytes # (Manual) Monocytes # (Manual) Eosinophils # (Manual) Basophils # (Manual) PT INR Fibrinogen dRVVT Confirm Interp Factor V Activity POC ABG pH POC ABG pCO2 POC ABG pO2 ABG pO2 ABG HCO3 ABG Base Excess ABG Hemoglobin Oxyhemoglobin Sodium Potassium 3.4 L Chloride Carbon Dioxide BUN 69 H Creatinine 1.5 H Glucose 105 H POC Glucose 117 H 110 H Lactic Acid Calcium Ionized Calcium Phosphorus Magnesium 1.50 L Direct Bilirubin AST ALT Alkaline Phosphatase Lactate Dehydrogenase Troponin T C-Reactive Protein Total Protein Albumin Prealbumin Triglycerides Cholesterol LDL Cholesterol Direct HDL Cholesterol 25-OH Vitamin D Total PTH Intact Urine pH Urine WBC (Auto) Urine Creatinine Urine Total Protein Fluid Total Protein Vancomycin Trough Rheumatoid Factor Complement C4 Miscellaneous Test Crossmatch 02/07/17 02/08/17 02/08/17 20:47 04:00 11:43 WBC RBC Hgb Hct MCV MCH MCHC RDW Plt Count Lymph % (Auto) [place] % (Auto) Lymph # [place] # Baso # Seg Neutrophils % Seg Neuts % (Manual) Lymphocytes % (Manual) Monocytes % (Manual) Eosinophils % (Manual) Basophils % (Manual) Nucleated RBC % Seg Neutrophils # Seg Neutrophils # Man Lymphocytes # (Manual) Monocytes # (Manual) Eosinophils # (Manual) Basophils # (Manual) PT INR Fibrinogen dRVVT Confirm Interp Factor V Activity POC ABG pH POC ABG pCO2 POC ABG pO2 ABG pO2 ABG HCO3 ABG Base Excess ABG Hemoglobin Oxyhemoglobin Sodium Potassium Chloride Carbon Dioxide BUN 86 H Creatinine 1.7 H Glucose POC Glucose 115 H 122 H Lactic Acid Calcium Ionized Calcium Phosphorus Magnesium 1.60 L Direct Bilirubin AST ALT Alkaline Phosphatase Lactate Dehydrogenase Troponin T C-Reactive Protein Total Protein Albumin Prealbumin Triglycerides Cholesterol LDL Cholesterol Direct HDL Cholesterol 25-OH Vitamin D Total PTH Intact Urine pH Urine WBC (Auto) Urine Creatinine Urine Total Protein Fluid Total Protein Vancomycin Trough Rheumatoid Factor Complement C4 Miscellaneous Test Crossmatch 02/08/17 02/09/17 02/09/17 17:36 05:44 11:30 WBC RBC Hgb Hct MCV MCH MCHC RDW Plt Count Lymph % (Auto) [place] % (Auto) Lymph # [place] # Baso # Seg Neutrophils % Seg Neuts % (Manual) Lymphocytes % (Manual) Monocytes % (Manual) Eosinophils % (Manual) Basophils % (Manual) Nucleated RBC % Seg Neutrophils # Seg Neutrophils # Man Lymphocytes # (Manual) Monocytes # (Manual) Eosinophils # (Manual) Basophils # (Manual) PT INR Fibrinogen dRVVT Confirm Interp Factor V Activity POC ABG pH POC ABG pCO2 POC ABG pO2 ABG pO2 ABG HCO3 ABG Base Excess ABG Hemoglobin Oxyhemoglobin Sodium Potassium Chloride Carbon Dioxide BUN Creatinine Glucose POC Glucose 125 H 117 H 120 H Lactic Acid Calcium Ionized Calcium Phosphorus Magnesium Direct Bilirubin AST ALT Alkaline Phosphatase Lactate Dehydrogenase Troponin T C-Reactive Protein Total Protein Albumin Prealbumin Triglycerides Cholesterol LDL Cholesterol Direct HDL Cholesterol 25-OH Vitamin D Total PTH Intact Urine pH Urine WBC (Auto) Urine Creatinine Urine Total Protein Fluid Total Protein Vancomycin Trough Rheumatoid Factor Complement C4 Miscellaneous Test Crossmatch 02/09/17 02/10/17 02/10/17 23:45 05:45 05:50 WBC RBC Hgb Hct MCV MCH MCHC RDW Plt Count Lymph % (Auto) [place] % (Auto) Lymph # [place] # Baso # Seg Neutrophils % Seg Neuts % (Manual) Lymphocytes % (Manual) Monocytes % (Manual) Eosinophils % (Manual) Basophils % (Manual) Nucleated RBC % Seg Neutrophils # Seg Neutrophils # Man Lymphocytes # (Manual) Monocytes # (Manual) Eosinophils # (Manual) Basophils # (Manual) PT INR Fibrinogen dRVVT Confirm Interp Factor V Activity POC ABG pH POC ABG pCO2 POC ABG pO2 ABG pO2 ABG HCO3 ABG Base Excess ABG Hemoglobin Oxyhemoglobin Sodium Potassium Chloride Carbon Dioxide BUN 85 H Creatinine 1.8 H Glucose 109 H POC Glucose 114 H 189 H Lactic Acid Calcium Ionized Calcium Phosphorus Magnesium 2.50 H Direct Bilirubin AST ALT Alkaline Phosphatase Lactate Dehydrogenase Troponin T C-Reactive Protein Total Protein Albumin Prealbumin Triglycerides Cholesterol LDL Cholesterol Direct HDL Cholesterol 25-OH Vitamin D Total PTH Intact Urine pH Urine WBC (Auto) Urine Creatinine Urine Total Protein Fluid Total Protein Vancomycin Trough Rheumatoid Factor Complement C4 Miscellaneous Test Crossmatch 02/10/17 02/10/17 02/10/17 05:51 11:55 17:42 WBC RBC Hgb Hct MCV MCH MCHC RDW Plt Count Lymph % (Auto) [place] % (Auto) Lymph # [place] # Baso # Seg Neutrophils % Seg Neuts % (Manual) Lymphocytes % (Manual) Monocytes % (Manual) Eosinophils % (Manual) Basophils % (Manual) Nucleated RBC % Seg Neutrophils # Seg Neutrophils # Man Lymphocytes # (Manual) Monocytes # (Manual) Eosinophils # (Manual) Basophils # (Manual) PT INR Fibrinogen dRVVT Confirm Interp Factor V Activity POC ABG pH POC ABG pCO2 POC ABG pO2 ABG pO2 ABG HCO3 ABG Base Excess ABG Hemoglobin Oxyhemoglobin Sodium Potassium Chloride Carbon Dioxide BUN Creatinine Glucose POC Glucose 106 H 146 H 132 H Lactic Acid Calcium Ionized Calcium Phosphorus Magnesium Direct Bilirubin AST ALT Alkaline Phosphatase Lactate Dehydrogenase Troponin T C-Reactive Protein Total Protein Albumin Prealbumin Triglycerides Cholesterol LDL Cholesterol Direct HDL Cholesterol 25-OH Vitamin D Total PTH Intact Urine pH Urine WBC (Auto) Urine Creatinine Urine Total Protein Fluid Total Protein Vancomycin Trough Rheumatoid Factor Complement C4 Miscellaneous Test Crossmatch 02/10/17 02/11/17 02/11/17 23:43 04:08 05:34 WBC RBC Hgb Hct MCV MCH MCHC RDW Plt Count Lymph % (Auto) [place] % (Auto) Lymph # [place] # Baso # Seg Neutrophils % Seg Neuts % (Manual) Lymphocytes % (Manual) Monocytes % (Manual) Eosinophils % (Manual) Basophils % (Manual) Nucleated RBC % Seg Neutrophils # Seg Neutrophils # Man Lymphocytes # (Manual) Monocytes # (Manual) Eosinophils # (Manual) Basophils # (Manual) PT INR Fibrinogen dRVVT Confirm Interp Factor V Activity POC ABG pH POC ABG pCO2 POC ABG pO2 ABG pO2 ABG HCO3 ABG Base Excess ABG Hemoglobin Oxyhemoglobin Sodium 136 L Potassium Chloride Carbon Dioxide BUN 65 H Creatinine 1.7 H Glucose 105 H POC Glucose 130 H 113 H Lactic Acid Calcium Ionized Calcium Phosphorus Magnesium Direct Bilirubin AST ALT Alkaline Phosphatase Lactate Dehydrogenase Troponin T C-Reactive Protein Total Protein Albumin Prealbumin Triglycerides Cholesterol LDL Cholesterol Direct HDL Cholesterol 25-OH Vitamin D Total PTH Intact Urine pH Urine WBC (Auto) Urine Creatinine Urine Total Protein Fluid Total Protein Vancomycin Trough Rheumatoid Factor Complement C4 Miscellaneous Test Crossmatch 02/11/17 02/11/17 02/12/17 11:56 23:18 06:19 WBC RBC Hgb Hct MCV MCH MCHC RDW Plt Count Lymph % (Auto) [place] % (Auto) Lymph # [place] # Baso # Seg Neutrophils % Seg Neuts % (Manual) Lymphocytes % (Manual) Monocytes % (Manual) Eosinophils % (Manual) Basophils % (Manual) Nucleated RBC % Seg Neutrophils # Seg Neutrophils # Man Lymphocytes # (Manual) Monocytes # (Manual) Eosinophils # (Manual) Basophils # (Manual) PT INR Fibrinogen dRVVT Confirm Interp Factor V Activity POC ABG pH POC ABG pCO2 POC ABG pO2 ABG pO2 ABG HCO3 ABG Base Excess ABG Hemoglobin Oxyhemoglobin Sodium 136 L Potassium Chloride 97.1 L Carbon Dioxide BUN 93 H Creatinine 2.4 H Glucose POC Glucose 126 H 119 H Lactic Acid Calcium 11.0 H Ionized Calcium Phosphorus Magnesium Direct Bilirubin AST ALT Alkaline Phosphatase Lactate Dehydrogenase Troponin T C-Reactive Protein Total Protein Albumin Prealbumin Triglycerides Cholesterol LDL Cholesterol Direct HDL Cholesterol 25-OH Vitamin D Total PTH Intact Urine pH Urine WBC (Auto) Urine Creatinine Urine Total Protein Fluid Total Protein Vancomycin Trough Rheumatoid Factor Complement C4 Miscellaneous Test Crossmatch 02/12/17 02/12/17 02/12/17 08:00 10:25 11:42 WBC 15.4 H RBC 2.63 L Hgb 6.9 L Hct 22.6 L MCV MCH 26 L MCHC RDW 20.5 H Plt Count Lymph % (Auto) [place] % (Auto) Lymph # [place] # Baso # Seg Neutrophils % Seg Neuts % (Manual) Lymphocytes % (Manual) Monocytes % (Manual) Eosinophils % (Manual) Basophils % (Manual) Nucleated RBC % Seg Neutrophils # Seg Neutrophils # Man Lymphocytes # (Manual) Monocytes # (Manual) Eosinophils # (Manual) Basophils # (Manual) PT INR Fibrinogen dRVVT Confirm Interp Factor V Activity POC ABG pH POC ABG pCO2 POC ABG pO2 ABG pO2 ABG HCO3 ABG Base Excess ABG Hemoglobin Oxyhemoglobin Sodium Potassium Chloride Carbon Dioxide BUN Creatinine Glucose POC Glucose 142 H Lactic Acid Calcium Ionized Calcium Phosphorus Magnesium Direct Bilirubin AST ALT Alkaline Phosphatase Lactate Dehydrogenase Troponin T C-Reactive Protein Total Protein Albumin Prealbumin Triglycerides Cholesterol LDL Cholesterol Direct HDL Cholesterol 25-OH Vitamin D Total PTH Intact Urine pH Urine WBC (Auto) Urine Creatinine Urine Total Protein Fluid Total Protein Vancomycin Trough Rheumatoid Factor Complement C4 Miscellaneous Test Crossmatch See Detail 02/12/17 02/13/17 02/13/17 18:04 00:04 05:00 WBC RBC Hgb Hct MCV MCH MCHC RDW Plt Count Lymph % (Auto) [place] % (Auto) Lymph # [place] # Baso # Seg Neutrophils % Seg Neuts % (Manual) Lymphocytes % (Manual) Monocytes % (Manual) Eosinophils % (Manual) Basophils % (Manual) Nucleated RBC % Seg Neutrophils # Seg Neutrophils # Man Lymphocytes # (Manual) Monocytes # (Manual) Eosinophils # (Manual) Basophils # (Manual) PT INR Fibrinogen dRVVT Confirm Interp Factor V Activity POC ABG pH POC ABG pCO2 POC ABG pO2 ABG pO2 ABG HCO3 ABG Base Excess ABG Hemoglobin Oxyhemoglobin Sodium 134 L Potassium Chloride 96.1 L Carbon Dioxide 20 L BUN 125 H Creatinine 3.0 H Glucose 111 H POC Glucose 135 H 109 H Lactic Acid Calcium 11.3 H Ionized Calcium Phosphorus Magnesium Direct Bilirubin AST ALT Alkaline Phosphatase Lactate Dehydrogenase Troponin T C-Reactive Protein Total Protein Albumin Prealbumin Triglycerides Cholesterol LDL Cholesterol Direct HDL Cholesterol 25-OH Vitamin D Total PTH Intact Urine pH Urine WBC (Auto) Urine Creatinine Urine Total Protein Fluid Total Protein Vancomycin Trough Rheumatoid Factor Complement C4 Miscellaneous Test Crossmatch 02/13/17 02/13/17 02/13/17 05:00 05:28 12:03 WBC 11.9 H RBC 2.92 L Hgb 7.8 L Hct 25.2 L MCV MCH 27 L MCHC RDW 19.3 H Plt Count Lymph % (Auto) [place] % (Auto) Lymph # [place] # Baso # Seg Neutrophils % Seg Neuts % (Manual) Lymphocytes % (Manual) Monocytes % (Manual) Eosinophils % (Manual) Basophils % (Manual) Nucleated RBC % Seg Neutrophils # Seg Neutrophils # Man Lymphocytes # (Manual) Monocytes # (Manual) Eosinophils # (Manual) Basophils # (Manual) PT INR Fibrinogen dRVVT Confirm Interp Factor V Activity POC ABG pH POC ABG pCO2 POC ABG pO2 ABG pO2 ABG HCO3 ABG Base Excess ABG Hemoglobin Oxyhemoglobin Sodium Potassium Chloride Carbon Dioxide BUN Creatinine Glucose POC Glucose 124 H 160 H Lactic Acid Calcium Ionized Calcium Phosphorus Magnesium Direct Bilirubin AST ALT Alkaline Phosphatase Lactate Dehydrogenase Troponin T C-Reactive Protein Total Protein Albumin Prealbumin Triglycerides Cholesterol LDL Cholesterol Direct HDL Cholesterol 25-OH Vitamin D Total PTH Intact Urine pH Urine WBC (Auto) Urine Creatinine Urine Total Protein Fluid Total Protein Vancomycin Trough Rheumatoid Factor Complement C4 Miscellaneous Test Crossmatch 02/13/17 02/14/17 02/14/17 18:09 06:16 08:08 WBC 15.2 H RBC 2.97 L Hgb 8.1 L Hct 26.3 L MCV MCH MCHC RDW 19.3 H Plt Count Lymph % (Auto) [place] % (Auto) Lymph # [place] # Baso # Seg Neutrophils % Seg Neuts % (Manual) Lymphocytes % (Manual) Monocytes % (Manual) Eosinophils % (Manual) Basophils % (Manual) Nucleated RBC % Seg Neutrophils # Seg Neutrophils # Man Lymphocytes # (Manual) Monocytes # (Manual) Eosinophils # (Manual) Basophils # (Manual) PT INR Fibrinogen dRVVT Confirm Interp Factor V Activity POC ABG pH POC ABG pCO2 POC ABG pO2 ABG pO2 ABG HCO3 ABG Base Excess ABG Hemoglobin Oxyhemoglobin Sodium Potassium Chloride Carbon Dioxide BUN Creatinine Glucose POC Glucose 110 H 112 H Lactic Acid Calcium Ionized Calcium Phosphorus Magnesium Direct Bilirubin AST ALT Alkaline Phosphatase Lactate Dehydrogenase Troponin T C-Reactive Protein Total Protein Albumin Prealbumin Triglycerides Cholesterol LDL Cholesterol Direct HDL Cholesterol 25-OH Vitamin D Total PTH Intact Urine pH Urine WBC (Auto) Urine Creatinine Urine Total Protein Fluid Total Protein Vancomycin Trough Rheumatoid Factor Complement C4 Miscellaneous Test Crossmatch 02/14/17 02/14/17 02/15/17 08:08 17:41 04:15 WBC RBC Hgb Hct MCV MCH MCHC RDW Plt Count Lymph % (Auto) [place] % (Auto) Lymph # [place] # Baso # Seg Neutrophils % Seg Neuts % (Manual) Lymphocytes % (Manual) Monocytes % (Manual) Eosinophils % (Manual) Basophils % (Manual) Nucleated RBC % Seg Neutrophils # Seg Neutrophils # Man Lymphocytes # (Manual) Monocytes # (Manual) Eosinophils # (Manual) Basophils # (Manual) PT INR Fibrinogen dRVVT Confirm Interp Factor V Activity POC ABG pH POC ABG pCO2 POC ABG pO2 ABG pO2 ABG HCO3 ABG Base Excess ABG Hemoglobin Oxyhemoglobin Sodium Potassium Chloride Carbon Dioxide 18 L 21 L BUN 79 H 113 H Creatinine 2.1 H 2.8 H Glucose POC Glucose 118 H Lactic Acid Calcium 10.7 H Ionized Calcium Phosphorus 1.70 L D Magnesium 1.60 L Direct Bilirubin AST ALT Alkaline Phosphatase Lactate Dehydrogenase Troponin T C-Reactive Protein Total Protein Albumin Prealbumin Triglycerides Cholesterol LDL Cholesterol Direct HDL Cholesterol 25-OH Vitamin D Total PTH Intact Urine pH Urine WBC (Auto) Urine Creatinine Urine Total Protein Fluid Total Protein Vancomycin Trough Rheumatoid Factor Complement C4 Miscellaneous Test Crossmatch 02/15/17 02/15/17 02/15/17 06:06 11:31 17:52 WBC RBC Hgb Hct MCV MCH MCHC RDW Plt Count Lymph % (Auto) [place] % (Auto) Lymph # [place] # Baso # Seg Neutrophils % Seg Neuts % (Manual) Lymphocytes % (Manual) Monocytes % (Manual) Eosinophils % (Manual) Basophils % (Manual) Nucleated RBC % Seg Neutrophils # Seg Neutrophils # Man Lymphocytes # (Manual) Monocytes # (Manual) Eosinophils # (Manual) Basophils # (Manual) PT INR Fibrinogen dRVVT Confirm Interp Factor V Activity POC ABG pH POC ABG pCO2 POC ABG pO2 ABG pO2 ABG HCO3 ABG Base Excess ABG Hemoglobin Oxyhemoglobin Sodium Potassium Chloride Carbon Dioxide BUN Creatinine Glucose POC Glucose 115 H 129 H 201 H Lactic Acid Calcium Ionized Calcium Phosphorus Magnesium Direct Bilirubin AST ALT Alkaline Phosphatase Lactate Dehydrogenase Troponin T C-Reactive Protein Total Protein Albumin Prealbumin Triglycerides Cholesterol LDL Cholesterol Direct HDL Cholesterol 25-OH Vitamin D Total PTH Intact Urine pH Urine WBC (Auto) Urine Creatinine Urine Total Protein Fluid Total Protein Vancomycin Trough Rheumatoid Factor Complement C4 Miscellaneous Test Crossmatch 02/15/17 02/15/17 02/15/17 19:08 19:08 19:08 WBC RBC Hgb Hct MCV MCH MCHC RDW Plt Count Lymph % (Auto) [place] % (Auto) Lymph # [place] # Baso # Seg Neutrophils % Seg Neuts % (Manual) Lymphocytes % (Manual) Monocytes % (Manual) Eosinophils % (Manual) Basophils % (Manual) Nucleated RBC % Seg Neutrophils # Seg Neutrophils # Man Lymphocytes # (Manual) Monocytes # (Manual) Eosinophils # (Manual) Basophils # (Manual) PT INR Fibrinogen dRVVT Confirm Interp Factor V Activity POC ABG pH POC ABG pCO2 POC ABG pO2 ABG pO2 ABG HCO3 ABG Base Excess ABG Hemoglobin Oxyhemoglobin Sodium Potassium Chloride Carbon Dioxide BUN Creatinine Glucose POC Glucose Lactic Acid Calcium Ionized Calcium 6.0 H Phosphorus Magnesium Direct Bilirubin AST ALT Alkaline Phosphatase Lactate Dehydrogenase Troponin T C-Reactive Protein Total Protein Albumin Prealbumin Triglycerides Cholesterol LDL Cholesterol Direct HDL Cholesterol 25-OH Vitamin D Total 13 L PTH Intact 10.88 L Urine pH Urine WBC (Auto) Urine Creatinine Urine Total Protein Fluid Total Protein Vancomycin Trough Rheumatoid Factor Complement C4 Miscellaneous Test Crossmatch 02/16/17 02/16/17 02/16/17 05:12 06:00 12:39 WBC RBC Hgb Hct MCV MCH MCHC RDW Plt Count Lymph % (Auto) [place] % (Auto) Lymph # [place] # Baso # Seg Neutrophils % Seg Neuts % (Manual) Lymphocytes % (Manual) Monocytes % (Manual) Eosinophils % (Manual) Basophils % (Manual) Nucleated RBC % Seg Neutrophils # Seg Neutrophils # Man Lymphocytes # (Manual) Monocytes # (Manual) Eosinophils # (Manual) Basophils # (Manual) PT INR Fibrinogen dRVVT Confirm Interp Factor V Activity POC ABG pH POC ABG pCO2 POC ABG pO2 ABG pO2 ABG HCO3 ABG Base Excess ABG Hemoglobin Oxyhemoglobin Sodium Potassium Chloride Carbon Dioxide BUN 74 H Creatinine 1.7 H Glucose 102 H POC Glucose 125 H 109 H Lactic Acid Calcium Ionized Calcium Phosphorus 2.10 L D Magnesium Direct Bilirubin AST ALT Alkaline Phosphatase Lactate Dehydrogenase Troponin T C-Reactive Protein Total Protein Albumin Prealbumin Triglycerides Cholesterol LDL Cholesterol Direct HDL Cholesterol 25-OH Vitamin D Total PTH Intact Urine pH Urine WBC (Auto) Urine Creatinine Urine Total Protein Fluid Total Protein Vancomycin Trough Rheumatoid Factor Complement C4 Miscellaneous Test Crossmatch 02/16/17 02/16/17 02/17/17 17:31 23:57 05:30 WBC RBC Hgb Hct MCV MCH MCHC RDW Plt Count Lymph % (Auto) [place] % (Auto) Lymph # [place] # Baso # Seg Neutrophils % Seg Neuts % (Manual) Lymphocytes % (Manual) Monocytes % (Manual) Eosinophils % (Manual) Basophils % (Manual) Nucleated RBC % Seg Neutrophils # Seg Neutrophils # Man Lymphocytes # (Manual) Monocytes # (Manual) Eosinophils # (Manual) Basophils # (Manual) PT INR Fibrinogen dRVVT Confirm Interp Factor V Activity POC ABG pH POC ABG pCO2 POC ABG pO2 ABG pO2 ABG HCO3 ABG Base Excess ABG Hemoglobin Oxyhemoglobin Sodium Potassium Chloride Carbon Dioxide BUN Creatinine Glucose POC Glucose 106 H 127 H 122 H Lactic Acid Calcium Ionized Calcium Phosphorus Magnesium Direct Bilirubin AST ALT Alkaline Phosphatase Lactate Dehydrogenase Troponin T C-Reactive Protein Total Protein Albumin Prealbumin Triglycerides Cholesterol LDL Cholesterol Direct HDL Cholesterol 25-OH Vitamin D Total PTH Intact Urine pH Urine WBC (Auto) Urine Creatinine Urine Total Protein Fluid Total Protein Vancomycin Trough Rheumatoid Factor Complement C4 Miscellaneous Test Crossmatch 02/17/17 02/17/17 02/17/17 06:00 12:17 17:57 WBC RBC Hgb Hct MCV MCH MCHC RDW Plt Count Lymph % (Auto) [place] % (Auto) Lymph # [place] # Baso # Seg Neutrophils % Seg Neuts % (Manual) Lymphocytes % (Manual) Monocytes % (Manual) Eosinophils % (Manual) Basophils % (Manual) Nucleated RBC % Seg Neutrophils # Seg Neutrophils # Man Lymphocytes # (Manual) Monocytes # (Manual) Eosinophils # (Manual) Basophils # (Manual) PT INR Fibrinogen dRVVT Confirm Interp Factor V Activity POC ABG pH POC ABG pCO2 POC ABG pO2 ABG pO2 ABG HCO3 ABG Base Excess ABG Hemoglobin Oxyhemoglobin Sodium Potassium Chloride Carbon Dioxide BUN 94 H Creatinine 2.3 H Glucose 106 H POC Glucose 173 H 140 H Lactic Acid Calcium Ionized Calcium Phosphorus Magnesium Direct Bilirubin AST ALT Alkaline Phosphatase Lactate Dehydrogenase Troponin T C-Reactive Protein Total Protein Albumin Prealbumin Triglycerides Cholesterol LDL Cholesterol Direct HDL Cholesterol 25-OH Vitamin D Total PTH Intact Urine pH Urine WBC (Auto) Urine Creatinine Urine Total Protein Fluid Total Protein Vancomycin Trough Rheumatoid Factor Complement C4 Miscellaneous Test Crossmatch 02/18/17 02/18/17 02/18/17 00:20 05:30 06:14 WBC RBC Hgb Hct MCV MCH MCHC RDW Plt Count Lymph % (Auto) [place] % (Auto) Lymph # [place] # Baso # Seg Neutrophils % Seg Neuts % (Manual) Lymphocytes % (Manual) Monocytes % (Manual) Eosinophils % (Manual) Basophils % (Manual) Nucleated RBC % Seg Neutrophils # Seg Neutrophils # Man Lymphocytes # (Manual) Monocytes # (Manual) Eosinophils # (Manual) Basophils # (Manual) PT INR Fibrinogen dRVVT Confirm Interp Factor V Activity POC ABG pH POC ABG pCO2 POC ABG pO2 ABG pO2 ABG HCO3 ABG Base Excess ABG Hemoglobin Oxyhemoglobin Sodium 136 L Potassium Chloride 97.5 L Carbon Dioxide BUN 73 H Creatinine 1.9 H Glucose POC Glucose 132 H 106 H Lactic Acid Calcium Ionized Calcium Phosphorus Magnesium Direct Bilirubin AST ALT Alkaline Phosphatase Lactate Dehydrogenase Troponin T C-Reactive Protein Total Protein Albumin Prealbumin Triglycerides Cholesterol LDL Cholesterol Direct HDL Cholesterol 25-OH Vitamin D Total PTH Intact Urine pH Urine WBC (Auto) Urine Creatinine Urine Total Protein Fluid Total Protein Vancomycin Trough Rheumatoid Factor Complement C4 Miscellaneous Test Crossmatch 02/18/17 02/18/17 02/18/17 09:51 11:32 17:59 WBC 13.1 H RBC 2.77 L Hgb 7.6 L Hct 23.9 L MCV MCH MCHC RDW 19.0 H Plt Count Lymph % (Auto) [place] % (Auto) 11.1 H Lymph # [place] # 1.5 H Baso # Seg Neutrophils % Seg Neuts % (Manual) Lymphocytes % (Manual) Monocytes % (Manual) Eosinophils % (Manual) Basophils % (Manual) Nucleated RBC % Seg Neutrophils # 9.1 H Seg Neutrophils # Man Lymphocytes # (Manual) Monocytes # (Manual) Eosinophils # (Manual) Basophils # (Manual) PT INR Fibrinogen dRVVT Confirm Interp Factor V Activity POC ABG pH POC ABG pCO2 POC ABG pO2 ABG pO2 ABG HCO3 ABG Base Excess ABG Hemoglobin Oxyhemoglobin Sodium Potassium Chloride Carbon Dioxide BUN Creatinine Glucose POC Glucose 123 H 119 H Lactic Acid Calcium Ionized Calcium Phosphorus Magnesium Direct Bilirubin AST ALT Alkaline Phosphatase Lactate Dehydrogenase Troponin T C-Reactive Protein Total Protein Albumin Prealbumin Triglycerides Cholesterol LDL Cholesterol Direct HDL Cholesterol 25-OH Vitamin D Total PTH Intact Urine pH Urine WBC (Auto) Urine Creatinine Urine Total Protein Fluid Total Protein Vancomycin Trough Rheumatoid Factor Complement C4 Miscellaneous Test Crossmatch 02/18/17 02/19/17 02/19/17 23:47 05:36 09:45 WBC RBC Hgb Hct MCV MCH 27 L MCHC RDW 19.2 H Plt Count Lymph % (Auto) [place] % (Auto) Lymph # [place] # Baso # Seg Neutrophils % Seg Neuts % (Manual) Lymphocytes % (Manual) Monocytes % (Manual) Eosinophils % (Manual) Basophils % (Manual) Nucleated RBC % Seg Neutrophils # Seg Neutrophils # Man Lymphocytes # (Manual) Monocytes # (Manual) Eosinophils # (Manual) Basophils # (Manual) PT INR Fibrinogen dRVVT Confirm Interp Factor V Activity POC ABG pH POC ABG pCO2 POC ABG pO2 ABG pO2 ABG HCO3 ABG Base Excess ABG Hemoglobin Oxyhemoglobin Sodium Potassium Chloride Carbon Dioxide BUN Creatinine Glucose POC Glucose 110 H 121 H Lactic Acid Calcium Ionized Calcium Phosphorus Magnesium Direct Bilirubin AST ALT Alkaline Phosphatase Lactate Dehydrogenase Troponin T C-Reactive Protein Total Protein Albumin Prealbumin Triglycerides Cholesterol LDL Cholesterol Direct HDL Cholesterol 25-OH Vitamin D Total PTH Intact Urine pH Urine WBC (Auto) Urine Creatinine Urine Total Protein Fluid Total Protein Vancomycin Trough Rheumatoid Factor Complement C4 Miscellaneous Test Crossmatch 02/19/17 02/20/17 02/20/17 09:45 00:10 06:15 WBC RBC Hgb Hct MCV MCH MCHC RDW Plt Count Lymph % (Auto) [place] % (Auto) Lymph # [place] # Baso # Seg Neutrophils % Seg Neuts % (Manual) Lymphocytes % (Manual) Monocytes % (Manual) Eosinophils % (Manual) Basophils % (Manual) Nucleated RBC % Seg Neutrophils # Seg Neutrophils # Man Lymphocytes # (Manual) Monocytes # (Manual) Eosinophils # (Manual) Basophils # (Manual) PT INR Fibrinogen dRVVT Confirm Interp Factor V Activity POC ABG pH POC ABG pCO2 POC ABG pO2 ABG pO2 ABG HCO3 ABG Base Excess ABG Hemoglobin Oxyhemoglobin Sodium 136 L Potassium 5.1 H Chloride 97.6 L Carbon Dioxide 20 L 18 L BUN 110 H 135 H Creatinine 2.6 H 3.2 H Glucose 106 H 110 H POC Glucose 117 H Lactic Acid Calcium Ionized Calcium Phosphorus 4.70 H D 5.60 H Magnesium Direct Bilirubin AST ALT Alkaline Phosphatase Lactate Dehydrogenase Troponin T C-Reactive Protein Total Protein Albumin Prealbumin Triglycerides Cholesterol LDL Cholesterol Direct HDL Cholesterol 25-OH Vitamin D Total PTH Intact Urine pH Urine WBC (Auto) Urine Creatinine Urine Total Protein Fluid Total Protein Vancomycin Trough Rheumatoid Factor Complement C4 Miscellaneous Test Crossmatch 02/20/17 02/20/17 02/21/17 11:30 17:51 00:14 WBC RBC Hgb Hct MCV MCH MCHC RDW Plt Count Lymph % (Auto) [place] % (Auto) Lymph # [place] # Baso # Seg Neutrophils % Seg Neuts % (Manual) Lymphocytes % (Manual) Monocytes % (Manual) Eosinophils % (Manual) Basophils % (Manual) Nucleated RBC % Seg Neutrophils # Seg Neutrophils # Man Lymphocytes # (Manual) Monocytes # (Manual) Eosinophils # (Manual) Basophils # (Manual) PT INR Fibrinogen dRVVT Confirm Interp Factor V Activity POC ABG pH POC ABG pCO2 POC ABG pO2 ABG pO2 ABG HCO3 ABG Base Excess ABG Hemoglobin Oxyhemoglobin Sodium Potassium Chloride Carbon Dioxide BUN Creatinine Glucose POC Glucose 173 H 133 H 125 H Lactic Acid Calcium Ionized Calcium Phosphorus Magnesium Direct Bilirubin AST ALT Alkaline Phosphatase Lactate Dehydrogenase Troponin T C-Reactive Protein Total Protein Albumin Prealbumin Triglycerides Cholesterol LDL Cholesterol Direct HDL Cholesterol 25-OH Vitamin D Total PTH Intact Urine pH Urine WBC (Auto) Urine Creatinine Urine Total Protein Fluid Total Protein Vancomycin Trough Rheumatoid Factor Complement C4 Miscellaneous Test Crossmatch 02/21/17 02/21/17 02/21/17 04:09 05:03 11:58 WBC RBC Hgb Hct MCV MCH MCHC RDW Plt Count Lymph % (Auto) [place] % (Auto) Lymph # [place] # Baso # Seg Neutrophils % Seg Neuts % (Manual) Lymphocytes % (Manual) Monocytes % (Manual) Eosinophils % (Manual) Basophils % (Manual) Nucleated RBC % Seg Neutrophils # Seg Neutrophils # Man Lymphocytes # (Manual) Monocytes # (Manual) Eosinophils # (Manual) Basophils # (Manual) PT INR Fibrinogen dRVVT Confirm Interp Factor V Activity POC ABG pH POC ABG pCO2 POC ABG pO2 ABG pO2 ABG HCO3 ABG Base Excess ABG Hemoglobin Oxyhemoglobin Sodium 135 L Potassium Chloride Carbon Dioxide 20 L BUN 76 H Creatinine 2.0 H Glucose 125 H POC Glucose 134 H 139 H Lactic Acid Calcium Ionized Calcium Phosphorus Magnesium Direct Bilirubin AST ALT Alkaline Phosphatase Lactate Dehydrogenase Troponin T C-Reactive Protein Total Protein Albumin Prealbumin Triglycerides Cholesterol LDL Cholesterol Direct HDL Cholesterol 25-OH Vitamin D Total PTH Intact Urine pH Urine WBC (Auto) Urine Creatinine Urine Total Protein Fluid Total Protein Vancomycin Trough Rheumatoid Factor Complement C4 Miscellaneous Test Crossmatch 02/21/17 02/22/17 02/22/17 23:41 04:10 06:03 WBC RBC Hgb Hct MCV MCH MCHC RDW Plt Count Lymph % (Auto) [place] % (Auto) Lymph # [place] # Baso # Seg Neutrophils % Seg Neuts % (Manual) Lymphocytes % (Manual) Monocytes % (Manual) Eosinophils % (Manual) Basophils % (Manual) Nucleated RBC % Seg Neutrophils # Seg Neutrophils # Man Lymphocytes # (Manual) Monocytes # (Manual) Eosinophils # (Manual) Basophils # (Manual) PT INR Fibrinogen dRVVT Confirm Interp Factor V Activity POC ABG pH POC ABG pCO2 POC ABG pO2 ABG pO2 ABG HCO3 ABG Base Excess ABG Hemoglobin Oxyhemoglobin Sodium 135 L Potassium Chloride 97.7 L Carbon Dioxide 21 L BUN 101 H Creatinine 2.5 H Glucose 116 H POC Glucose 128 H 126 H Lactic Acid Calcium Ionized Calcium Phosphorus Magnesium Direct Bilirubin AST ALT Alkaline Phosphatase Lactate Dehydrogenase Troponin T C-Reactive Protein Total Protein Albumin 1.3 L Prealbumin Triglycerides Cholesterol LDL Cholesterol Direct HDL Cholesterol 25-OH Vitamin D Total PTH Intact Urine pH Urine WBC (Auto) Urine Creatinine Urine Total Protein Fluid Total Protein Vancomycin Trough Rheumatoid Factor Complement C4 Miscellaneous Test Crossmatch Allied health notes reviewed: RT (Has been on PS 04/07, no desaturations today)
[2017-02-22] MEDS: HEPARIN IV PRN (15:01)
--- NOTE | 2017-02-22 18:54 | Progress Note ---
Assessment and Plan Assessment and plan: Patient is 46-year-old woman with a history of hypertension, diabetes, asthma, hyperlipidemia, chronic kidney disease and anxiety , who was brought in by family because, she couldn't get her words out, her face was also twisted, she was admitted for acute CVA and accelerated hypertension, she had a hx of poor adherence with her medications, and uncontrolled htn. Patient's SBP on admission was noted be greater than 260. TPA was started but this was discontinued after 5 minutes because her blood pressure became uncontrolled. The TPA was not initiated again because the patient was outside the TPA window. Fever obtain UA, UC, blood cx and CXR if continues to spike fever, will consult ID Status post cardiac arrest , 11/21/16 on Mechanical ventilation >96 hrs, >3 months Vent Dependant Respirtory failure secodnary to Anoxic Brain injury S/P Tracheostomy Severe Sepsis with septic shock Surgical wound infection/gram-negative sepsis/candidemia/peritonitis - On TPN ESRD - on HD - Cr 1.9 today Acute CVA with infarct - Neurology input appreciated - CT shows continued evolution of left MCA infarct with slight mass effect and edema, and there is no hemorrhage - PRINCE showed hyperdynamic with ef of 75%, neither clot nor septal defect seen - MRA Brain shows near complete occlusion of M2 and M3 of the left MCA - Repeat CT scan done on 09/11, shows stable findings - carotid doppler negative - Echo shows preserved systolic function but does show some left ventricular diastolic dysfunction - continue asa and statin Persistent vegetative state - This patient's needs placement at SNF - She was denied for LTACH Nosocomial acquired aspiration pneumonia/sepsis/UTI/PERITONITIS - Has been on multiple antibiotics, expect recurrent sepsis due to now known Bowel perforation not amendable to surgery due to clinical condition A. fib with RVR -On amio drip, cannot change to PO due to persistent nausea and vomiting Diabetes type 2. -Continue sliding-scale regular insulin and Accu-Cheks. Hyperlipidemia. Continue statin Severe Protein calorie Malnutrition/Adult failure to thrive - TPN Anemia requiring multiple transfusions/acute blood loss - currently stable - Check AM labs - Will transfuse if it is below 7 Sacral decubitus ulcer - Status post debridement -Wound vac in place Disposition. Very poor prognosis. DNR - The high probability of a clinically significant, sudden or life threatening deterioration of the [neurologic, CV] system(s) required my full and direct attention, intervention and personal management. The aggregate critical care time was [35] minutes. This time is in addition to time spent performing reported procedures but includes the following: [x] Data Review and interpretation [x] Patient assessment and monitoring of vital signs [x] Documentation [x] Medication orders and management History Interval history: patient seen and examined, remains unresponsive on the ventilator. febrile overnight, no vomiting was tachypneic and tachycardic overnight Hospitalist Physical - Physical exam Narrative exam: GEN: Ill appearing, trach, staring into space,, non purposeful movement NECK: SUPPLE, trach in place, ngt in place and to suction. CVS:Irregular Irregular with LUNGS/CHEST: NORMAL CHEST EXPANSION B, GOOD AIR ENTRY B, tachypena ABD: SOFT, no grimise on abdominal palpation, Ostomy bags at two side by side fistula site. GBS, NO REBOUND OR GUARDING, peg tube in place EXT/SKIN: NO SIGNIFICANT EDEMA BUT WITH UNSTAGEABLE SACRAL DECUB, wound vac inplace MSK: +spontaneous non purposeful movement NEURO: on a ventilator and unresponsive despite being off sedation PSY: Comatose, - Constitutional Vitals: Temp Pulse Resp BP Pulse Ox 98 F 99 H 21 133/86 97 02/22/17 16:00 02/22/17 18:15 02/22/17 18:15 02/22/17 18:15 02/22/17 18:15 General appearance: Present: no acute distress, well-nourished Results - Labs CBC & Chem 7: 02/19/17 09:45 02/22/17 04:10 Labs: Laboratory Last Values WBC 7.7 K/mm3 (4.5-11.0) 02/19/17 09:45 RBC 4.69 M/mm3 (3.65-5.03) 02/19/17 09:45 Hgb 12.7 gm/dl (10.1-14.3) D 02/19/17 09:45 Hct 40.2 % (30.3-42.9) D 02/19/17 09:45 MCV 86 fl (79-97) 02/19/17 09:45 MCH 27 pg (28-32) L 02/19/17 09:45 MCHC 32 % (30-34) 02/19/17 09:45 RDW 19.2 % (13.2-15.2) H 02/19/17 09:45 Plt Count 180 K/mm3 (140-440) 02/19/17 09:45 Lymph % (Auto) 18.5 % (13.4-35.0) 02/18/17 09:51 Rich % (Auto) 11.1 % (0.0-7.3) H 02/18/17 09:51 Eos % (Auto) 0.7 % (0.0-4.3) 02/18/17 09:51 Baso % (Auto) 0.3 % (0.0-1.8) 02/18/17 09:51 Lymph # 2.4 K/mm3 (1.2-5.4) 02/18/17 09:51 Rich # 1.5 K/mm3 (0.0-0.8) H 02/18/17 09:51 Eos # 0.1 K/mm3 (0.0-0.4) 02/18/17 09:51 Baso # 0.0 K/mm3 (0.0-0.1) 02/18/17 09:51 Add Manual Diff Complete 12/19/16 05:02 Total Counted 100 12/19/16 05:02 Seg Neutrophils % 69.4 % (40.0-70.0) 02/18/17 09:51 Seg Neuts % (Manual) 64.0 % (40.0-70.0) 12/19/16 05:02 Band Neutrophils % 15.0 % 12/19/16 05:02 Lymphocytes % (Manual) 13.0 % (13.4-35.0) L 12/19/16 05:02 Reactive Lymphs % (Man) 0 % 12/19/16 05:02 Monocytes % (Manual) 7.0 % (0.0-7.3) 12/19/16 05:02 Eosinophils % (Manual) 0 % (0.0-4.3) 12/19/16 05:02 Basophils % (Manual) 1.0 % (0.0-1.8) 12/19/16 05:02 Metamyelocytes % 0 % 12/19/16 05:02 Myelocytes % 0 % 12/19/16 05:02 Promyelocytes % 0 % 12/19/16 05:02 Blast Cells % 0 % 12/19/16 05:02 Nucleated RBC % 1.0 % (0.0-0.9) H 12/19/16 05:02 Seg Neutrophils # 9.1 K/mm3 (1.8-7.7) H 02/18/17 09:51 Seg Neutrophils # Man 12.9 K/mm3 (1.8-7.7) H 12/19/16 05:02 Band Neutrophils # 3.0 K/mm3 12/19/16 05:02 Lymphocytes # (Manual) 2.6 K/mm3 (1.2-5.4) 12/19/16 05:02 Abs React Lymphs (Man) 0.0 K/mm3 12/19/16 05:02 Monocytes # (Manual) 1.4 K/mm3 (0.0-0.8) H 12/19/16 05:02 Eosinophils # (Manual) 0.0 K/mm3 (0.0-0.4) 12/19/16 05:02 Basophils # (Manual) 0.2 K/mm3 (0.0-0.1) H 12/19/16 05:02 Metamyelocytes # 0.0 K/mm3 12/19/16 05:02 Myelocytes # 0.0 K/mm3 12/19/16 05:02 Promyelocytes # 0.0 K/mm3 12/19/16 05:02 Blast Cells # 0.0 K/mm3 12/19/16 05:02 Pathologist Review 09/13/16 04:00 WBC Morphology Not Reportable 12/19/16 05:02 Hypersegmented Neuts Not Reportable 12/19/16 05:02 Hyposegmented Neuts Not Reportable 12/19/16 05:02 Hypogranular Neuts Not Reportable 12/19/16 05:02 Smudge Cells Not Reportable 12/19/16 05:02 Toxic Granulation Not Reportable 12/19/16 05:02 Toxic Vacuolation Not Reportable 12/19/16 05:02 Dohle Bodies Not Reportable 12/19/16 05:02 Pelger-Huet Anomaly Not Reportable 12/19/16 05:02 Jasmina Rods Not Reportable 12/19/16 05:02 Platelet Estimate Consistent w auto 12/19/16 05:02 Clumped Platelets Not Reportable 12/19/16 05:02 Plt Clumps, EDTA Not Reportable 12/19/16 05:02 Large Platelets Not Reportable 12/19/16 05:02 Giant Platelets Not Reportable 12/19/16 05:02 Platelet Satelliting Not Reportable 12/19/16 05:02 Plt Morphology Comment Not Reportable 12/19/16 05:02 RBC Morphology Not Reportable 12/19/16 05:02 Dimorphic RBCs Not Reportable 12/19/16 05:02 Polychromasia Not Reportable 12/19/16 05:02 Hypochromasia Not Reportable 12/19/16 05:02 Poikilocytosis Not Reportable 12/19/16 05:02 Anisocytosis Not Reportable 12/19/16 05:02 Microcytosis Not Reportable 12/19/16 05:02 Macrocytosis Not Reportable 12/19/16 05:02 Spherocytes Not Reportable 12/19/16 05:02 Pappenheimer Bodies Not Reportable 12/19/16 05:02 Sickle Cells Not Reportable 12/19/16 05:02 Target Cells Few 12/19/16 05:02 Tear Drop Cells Not Reportable 12/19/16 05:02 Ovalocytes Not Reportable 12/19/16 05:02 Stomatocytes Rare 12/03/16 04:00 Helmet Cells Not Reportable 12/19/16 05:02 [place] Bodies Not Reportable 12/19/16 05:02 Platinum Rings Not Reportable 12/19/16 05:02 [place] Cells Not Reportable 12/19/16 05:02 Bite Cells Not Reportable 12/19/16 05:02 Crenated Cell Not Reportable 12/19/16 05:02 Elliptocytes Not Reportable 12/19/16 05:02 Acanthocytes (Spur) Not Reportable 12/19/16 05:02 Rouleaux Not Reportable 12/19/16 05:02 Hemoglobin C Crystals Not Reportable 12/19/16 05:02 Schistocytes Not Reportable 12/19/16 05:02 Malaria parasites Not Reportable 12/19/16 05:02 ESR > 140.0 mm/Hr (0-20) 09/08/16 11:48 Jun Bodies Not Reportable 12/19/16 05:02 Hem Pathologist Commnt No 12/19/16 05:02 PT 15.4 Sec. (12.2-14.9) H 01/13/17 15:50 INR 1.16 (0.87-1.13) H 01/13/17 15:50 APTT 33.0 Sec. (24.2-36.6) 10/09/16 03:45 Thrombin Time 16.8 Sec. (15.1-19.6) 09/03/16 00:10 Fibrinogen 750 mg/dl (211-480) H 09/08/16 11:48 Lupus Anticoagulant see below 09/12/16 09:59 LA PTT Baseline See scanned report 09/12/16 09:59 dRVVT Confirm Interp Positive (Negative) H 09/12/16 09:59 dRVVT Screen 50:50 See scanned report 09/12/16 09:59 dRVVT Mix Interpret See scanned report 09/12/16 09:59 Protein C Antigen 122 % (70-140) 09/08/16 15:35 Free Protein S 97 % normal (50-147) 09/08/16 15:35 Total Protein S 109 % (70-140) 09/08/16 15:35 Antithrombin III Ag 100 % (80-120) 09/08/16 15:35 Heparin Anti-Xa, Unfract Negative (Negative) 09/29/16 13:35 Factor V Activity 182 % (65-150) H 09/08/16 15:35 POC ABG pH 7.436 (7.35-7.45) 01/20/17 12: ABG pH 7.450 pH Units (7.350-7.450) 12/05/16 Unknown POC ABG pCO2 35.3 (35-45) 01/20/17 12:17 ABG pCO2 29.6 mm Hg 12/05/16 Unknown POC ABG pO2 70 (80-105) L 01/20/17 12: ABG pO2 75.2 mm Hg (80.0-90.0) L 12/05/16 Unknown POC ABG HCO3 23.8 01/20/17 12: ABG HCO3 20.1 mmol/L (20.0-26.0) 12/05/16 Unknown POC ABG Total CO2 25 01/20/17 12:17 POC ABG O2 Sat 94 01/20/17 12:17 ABG O2 Saturation 96.8 % (95.0-99.0) 12/05/16 Unknown ABG O2 Content 9.9 (0.0-44) 12/05/16 Unknown POC ABG Base Excess 0 01/20/17 12:17 ABG Base Excess -3.4 mmol/L (-2.0-3.0) L 12/05/16 Unknown ABG Hemoglobin 7.4 gm/dl (12.0-16.0) L 12/05/16 Unknown ABG Carboxyhemoglobin 1.8 % (0.0-5.0) 12/05/16 Unknown ABG Methemoglobin 0.6 % (0.0-1.5) 12/05/16 Unknown Oxyhemoglobin 94.5 % (95.0-99.0) L 12/05/16 Unknown FiO2 30 % 01/20/17 12:17 Sodium 135 mmol/L (137-145) L 02/22/17 04:10 Potassium 4.1 mmol/L (3.6-5.0) 02/22/17 04:10 Chloride 97.7 mmol/L (98-107) L 02/22/17 04:10 Carbon Dioxide 21 mmol/L (22-30) L 02/22/17 04:10 Anion Gap 20 mmol/L 02/22/17 04:10 BUN 101 mg/dL (7-17) H 02/22/17 04:10 Creatinine 2.5 mg/dL (0.7-1.2) H 02/22/17 04:10 Estimated GFR 25 ml/min 02/22/17 04:10 BUN/Creatinine Ratio 40 % 02/22/17 04:10 Glucose 116 mg/dL (65-100) H 02/22/17 04:10 POC Glucose 121 (70-105) H 02/22/17 18:19 Osmolality 351 Mosm/kg 09/16/16 11:47 Lactic Acid 2.30 mmol/L (0.7-2.0) H* 01/09/17 08:22 Calcium 9.4 mg/dL (8.4-10.2) 02/22/17 04:10 Ionized Calcium 6.0 mg/dL (4.8-5.6) H 02/15/17 19:08 Phosphorus 3.40 mg/dL (2.5-4.5) 02/22/17 04:10 Magnesium 2.00 mg/dL (1.7-2.3) 02/22/17 04:10 Total Bilirubin 0.50 mg/dL (0.1-1.2) 02/22/17 04:10 Direct Bilirubin 0.2 mg/dL (0-0.2) 01/28/17 04:00 Indirect Bilirubin 0.3 mg/dL 01/28/17 04:00 AST 10 units/L (5-40) 02/22/17 04:10 ALT 7 units/L (7-56) 02/22/17 04:10 Alkaline Phosphatase 95 units/L (35-129) 02/22/17 04:10 Ammonia 27.0 umol/L (25-60) 09/07/16 08:37 Lactate Dehydrogenase 170 units/L (91-180) 01/13/17 15:50 Total Creatine Kinase 121 units/L (30-135) 09/29/16 20:12 CK-MB (CK-2) < 1.0 ng/mL (0.0-4.0) 09/29/16 20:12 CK-MB (CK-2) Rel Index 0.8 (0-4) 09/29/16 20:12 Troponin T 0.204 ng/mL (0.00-0.029) H* 09/29/16 20:12 C-Reactive Protein 8.10 mg/dL (0.00-1.30) H 01/31/17 11:12 Total Protein 7.4 g/dL (6.3-8.2) 02/22/17 04:10 Albumin 1.3 g/dL (3.9-5) L 02/22/17 04:10 Albumin/Globulin Ratio 0.2 % 02/22/17 04:10 Prealbumin 0.110 g/L (0.200-0.400) L 12/29/16 05:15 Triglycerides 55 mg/dL (2-149) 02/06/17 04:45 Cholesterol 31 mg/dL (50-199) L 09/29/16 20:12 LDL Cholesterol Direct 4 mg/dL (50-130) L 09/29/16 20:12 HDL Cholesterol 3 mg/dL (40-59) L 09/29/16 20:12 Cholesterol/HDL Ratio 10.33 % 09/29/16 20:12 Angiotensin Convert Enz See scanned report 09/08/16 11:48 Renin 0.99 ng/mL/h (0.25-5.82) 10/07/16 10:56 Aldosterone <1 ng/dL () 10/07/16 10:56 Aldosterone/Renin Dir see below 10/07/16 10:56 Serotonin Release Assay See scanned report 09/29/16 13:35 25-OH Vitamin D Total 13 ng/mL (30-100) L 02/15/17 19:08 TSH 1.010 mlU/mL (0.270-4.200) 09/07/16 08:37 HCG, Qual Negative (Negative) 09/03/16 00:10 PTH Intact 10.88 pg/mL (15-65) L 02/15/17 19:08 Total Cortisol 18.2 mcg/dL () 02/02/17 20:09 Urine Color Yellow (Yellow) 11/05/16 13:09 Urine Turbidity Clear (Clear) 11/05/16 13:09 Urine pH 9.0 (5.0-7.0) H 11/05/16 13:09 Ur Specific [place] 1.011 (1.003-1.030) 11/05/16 13:09 Urine Protein 100 mg/dl mg/dL (Negative) 11/05/16 13:09 Urine Glucose (UA) Neg mg/dL (Negative) 11/05/16 13:09 Urine Ketones Neg mg/dL (Negative) 11/05/16 13:09 Urine Blood Neg (Negative) 11/05/16 13:09 Urine Nitrite Neg (Negative) 11/05/16 13:09 Urine Bilirubin Neg (Negative) 11/05/16 13:09 Urine Urobilinogen < 2.0 mg/dL (<2.0) 11/05/16 13:09 Ur Leukocyte Esterase Neg (Negative) 11/05/16 13:09 Urine WBC (Auto) 4.0 /HPF (0.0-6.0) 11/05/16 13:09 Urine RBC (Auto) 1.0 /HPF (0.0-6.0) 11/05/16 13:09 U Epithel Cells (Auto) 1.0 /HPF (0-13.0) 10/07/16 18:30 Urine Bacteria (Auto) 4+ /HPF (Negative) 11/05/16 13:09 Urine WBC Clumps 2+ /HPF 09/07/16 02:47 Hyaline Casts 4 /LPF 09/07/16 02:47 Urine Mucus Few /HPF 10/07/16 18:30 Urine Yeast (Budding) 3+ /HPF 10/07/16 18:30 Urine Eosinophils None seen (None Seen) 09/07/16 16:00 Urine Total Volume 950 11/12/16 10:18 Urine Creatinine 19.7 mg/dL (0.1-20.0) 11/12/16 10:18 Height (in) 65.0 inches 11/12/16 10:18 Weight (lb) 181.0 lbs 11/12/16 10:18 Creatinine Clearance 5 11/12/16 10:18 Urine Sodium 36 mEq/L 09/16/16 19:19 Urine Total Protein 16 mg/dL (5-11.8) H 09/16/16 19:19 Fluid Type Pleural 01/13/17 12:10 Fluid Color Yellow 01/13/17 12:10 Fluid Appearance Hazy 01/13/17 12:10 Fluid WBC 182 /mm3 01/13/17 12:10 Fluid RBC 41 /mm3 01/13/17 12:10 Fluid Seg Neutrophils 85.0 % 01/13/17 12:10 Fluid Lymphocytes 8.0 % 01/13/17 12:10 Fluid Reactive Lymphs 0 % 01/13/17 12:10 Fluid Monocytes 6.0 % 01/13/17 12:10 Fluid Eosinophils 1.0 % 01/13/17 12:10 Fluid Basophils 0 % 01/13/17 12:10 Fluid Total Protein 3.0 (15.0-45.0) L 01/13/17 12:10 Fluid LDH 1322 01/13/17 12:10 Fluid Comment Diff performed 01/13/17 12:10 Vancomycin Trough 2.3 ug/mL (5.0-20.0) L 09/21/16 13:00 Random Vancomycin 16.5 ug/mL (0-40.0) 11/28/16 09:45 Urine Opiates Screen Presumptive negative 09/03/16 15:11 Urine Methadone Screen Presumptive positive 09/03/16 15:11 Ur Barbiturates Screen Presumptive positive 09/03/16 15:11 Ur Phencyclidine Scrn Presumptive negative 09/03/16 15:11 Ur Amphetamines Screen Presumptive negative 09/03/16 15:11 U Benzodiazepines Scrn Presumptive negative 09/03/16 15:11 Urine Cocaine Screen Presumptive negative 09/03/16 15:11 U Marijuana (THC) Screen Presumptive positive 09/03/16 15:11 Drugs of Abuse Note Disclamer 09/03/16 15:11 Rheumatoid Factor 24 IU/ml (0-13) H 09/08/16 11:48 SAHIL Screen Negative (Negative) 09/07/16 09:20 Proteinase 3 (PR3) Ab <1.0 AI (<1.0) 09/07/16 09:20 Myeloperoxidase Ab <1.0 AI (<1.0) 09/07/16 09:20 Sjogren's Antibody <1.0 AI (<1.0) 09/08/16 15:35 Scl-70 Scleroderma Ab <1.0 AI (<1.0) 09/08/16 15:35 Centromere B Antibody <1.0 AI (<1.0) 09/08/16 12:02 Heparin-induced Plt Ab Negative (Negative) 09/29/16 13:35 UF Heparin High Dose 11 % Release 09/29/16 13:35 SUDHIR UFH Low Dose 0.1 6 % Release 09/29/16 13:35 SUDHIR UFH Low Dose 0.5 8 % Release 09/29/16 13:35 Cardiolipid IgG Ab <14 GPL (<=14) 09/12/16 09:59 Cardiolipid IgA Ab <11 APL (<=11) 09/12/16 09:59 Cardiolipid IgM Ab <12 MPL (<=12) 09/12/16 09:59 Complement C3 148 mg/dL (90-180) 09/07/16 09:20 Complement C4 58 mg/dL (16-47) H 09/07/16 09:20 RPR Nonreactive (Nonreactive) 09/08/16 11:48 Hepatitis A IgM Ab Non-reactive (NonReactive) 09/24/16 14:40 Hep Bs Antigen Non-reactive (Negative) 09/24/16 14:40 Hep B Core IgM Ab Non-reactive (NonReactive) 09/24/16 14:40 Hepatitis C Antibody Non-reactive (NonReactive) 09/24/16 14:40 HIV 1&2 Antibody Rapid Non react (Non React) 09/08/16 11:48 HIV P24 Antigen Non react (Non React) 09/08/16 11:48 Miscellaneous Test Flexitest 1 H 01/09/17 18:45 Blood Type A POSITIVE 02/12/17 10:25 Antibody Screen Negative 02/12/17 10:25 DELORIS Antibody Screen Negative 11/24/16 11:20 Crossmatch See Detail 02/12/17 10:25
[2017-02-22] MEDS ORDERED: TPN ADULT IV SCH (20:00)
[2017-02-22] MEDS ORDERED: INTRALIPID 20% 250 ML IV SCH (20:00)
[2017-02-22] MEDS: PEPCID IV SCH (23:05)
[2017-02-23] MEDS: HumuLIN R SUB-Q SCH ×3 (06:10→19:17)
[2017-02-23] MEDS: REGLAN IV SCH ×3 (06:16→21:59)
[2017-02-23 06:51] LABS: Calcium 8.1 mg/dL (8.4-10.2)
--- NOTE | 2017-02-23 09:43 | Progress Note ---
Assessment and Plan Assessment and plan: Patient is 46-year-old woman with a history of hypertension, diabetes, asthma, hyperlipidemia, chronic kidney disease and anxiety , who was brought in by family because, she couldn't get her words out, her face was also twisted, she was admitted for acute CVA and accelerated hypertension, she had a hx of poor adherence with her medications, and uncontrolled htn. Patient's SBP on admission was noted be greater than 260. TPA was started but this was discontinued after 5 minutes because her blood pressure became uncontrolled. The TPA was not initiated again because the patient was outside the TPA window. Fever obtain UA, UC, blood cx and CXR if continues to spike fever, will consult ID Status post cardiac arrest , 11/21/16 on Mechanical ventilation >96 hrs, >3 months Vent Dependant Respirtory failure secodnary to Anoxic Brain injury S/P Tracheostomy Severe Sepsis with septic shock; has completed abx, case dw ID Surgical wound infection/gram-negative sepsis/candidemia/peritonitis - On TPN ESRD - on HD - Cr 1.9 today Acute CVA with infarct - Neurology input appreciated - CT shows continued evolution of left MCA infarct with slight mass effect and edema, and there is no hemorrhage - PRINCE showed hyperdynamic with ef of 75%, neither clot nor septal defect seen - MRA Brain shows near complete occlusion of M2 and M3 of the left MCA - Repeat CT scan done on 09/11, shows stable findings - carotid doppler negative - Echo shows preserved systolic function but does show some left ventricular diastolic dysfunction - continue asa and statin Persistent vegetative state - This patient's needs placement at SNF - She was denied for LTACH Nosocomial acquired aspiration pneumonia/sepsis/UTI/PERITONITIS - Has been on multiple antibiotics, expect recurrent sepsis due to now known Bowel perforation not amendable to surgery due to clinical condition A. fib with RVR -On amio drip, cannot change to PO due to persistent nausea and vomiting Diabetes type 2. -Continue sliding-scale regular insulin and Accu-Cheks. Hyperlipidemia. Continue statin Severe Protein calorie Malnutrition/Adult failure to thrive - TPN Anemia requiring multiple transfusions/acute blood loss - currently stable - Check AM labs - Will transfuse if it is below 7 Sacral decubitus ulcer - Status post debridement -Wound vac in place Disposition. Very poor prognosis. DNR - The high probability of a clinically significant, sudden or life threatening deterioration of the [neurologic, CV] system(s) required my full and direct attention, intervention and personal management. The aggregate critical care time was [35] minutes. This time is in addition to time spent performing reported procedures but includes the following: [x] Data Review and interpretation [x] Patient assessment and monitoring of vital signs [x] Documentation [x] Medication orders and management History Interval history: patient seen and examined, remains unresponsive on the ventilator. afebrile overnight, no vomiting was tachypneic and tachycardic overnight Hospitalist Physical - Physical exam Narrative exam: GEN: Ill appearing, trach, staring into space,, non purposeful movement NECK: SUPPLE, trach in place, ngt in place and to suction. CVS:Irregular Irregular with LUNGS/CHEST: NORMAL CHEST EXPANSION B, GOOD AIR ENTRY B, tachypena ABD: SOFT, no grimise on abdominal palpation, Ostomy bags at two side by side fistula site. GBS, NO REBOUND OR GUARDING, peg tube in place EXT/SKIN: NO SIGNIFICANT EDEMA BUT WITH UNSTAGEABLE SACRAL DECUB, wound vac inplace MSK: +spontaneous non purposeful movement NEURO: on a ventilator and unresponsive despite being off sedation PSY: Comatose, - Constitutional Vitals: Temp Pulse Resp BP Pulse Ox 99.1 F 102 H 20 95/57 100 02/23/17 04:00 02/23/17 06:00 02/23/17 06:00 02/23/17 06:00 02/23/17 06:00 General appearance: Present: no acute distress, well-nourished Results - Labs CBC & Chem 7: 02/19/17 09:45 02/23/17 05:00 Labs: Laboratory Last Values WBC 7.7 K/mm3 (4.5-11.0) 02/19/17 09:45 RBC 4.69 M/mm3 (3.65-5.03) 02/19/17 09:45 Hgb 12.7 gm/dl (10.1-14.3) D 02/19/17 09:45 Hct 40.2 % (30.3-42.9) D 02/19/17 09:45 MCV 86 fl (79-97) 02/19/17 09:45 MCH 27 pg (28-32) L 02/19/17 09:45 MCHC 32 % (30-34) 02/19/17 09:45 RDW 19.2 % (13.2-15.2) H 02/19/17 09:45 Plt Count 180 K/mm3 (140-440) 02/19/17 09:45 Lymph % (Auto) 18.5 % (13.4-35.0) 02/18/17 09:51 [place] % (Auto) 11.1 % (0.0-7.3) H 02/18/17 09:51 Eos % (Auto) 0.7 % (0.0-4.3) 02/18/17 09:51 Baso % (Auto) 0.3 % (0.0-1.8) 02/18/17 09:51 Lymph # 2.4 K/mm3 (1.2-5.4) 02/18/17 09:51 [place] # 1.5 K/mm3 (0.0-0.8) H 02/18/17 09:51 Eos # 0.1 K/mm3 (0.0-0.4) 02/18/17 09:51 Baso # 0.0 K/mm3 (0.0-0.1) 02/18/17 09:51 Add Manual Diff Complete 12/19/16 05:02 Total Counted 100 12/19/16 05:02 Seg Neutrophils % 69.4 % (40.0-70.0) 02/18/17 09:51 Seg Neuts % (Manual) 64.0 % (40.0-70.0) 12/19/16 05:02 Band Neutrophils % 15.0 % 12/19/16 05:02 Lymphocytes % (Manual) 13.0 % (13.4-35.0) L 12/19/16 05:02 Reactive Lymphs % (Man) 0 % 12/19/16 05:02 Monocytes % (Manual) 7.0 % (0.0-7.3) 12/19/16 05:02 Eosinophils % (Manual) 0 % (0.0-4.3) 12/19/16 05:02 Basophils % (Manual) 1.0 % (0.0-1.8) 12/19/16 05:02 Metamyelocytes % 0 % 12/19/16 05:02 Myelocytes % 0 % 12/19/16 05:02 Promyelocytes % 0 % 12/19/16 05:02 Blast Cells % 0 % 12/19/16 05:02 Nucleated RBC % 1.0 % (0.0-0.9) H 12/19/16 05:02 Seg Neutrophils # 9.1 K/mm3 (1.8-7.7) H 02/18/17 09:51 Seg Neutrophils # Man 12.9 K/mm3 (1.8-7.7) H 12/19/16 05:02 Band Neutrophils # 3.0 K/mm3 12/19/16 05:02 Lymphocytes # (Manual) 2.6 K/mm3 (1.2-5.4) 12/19/16 05:02 Abs React Lymphs (Man) 0.0 K/mm3 12/19/16 05:02 Monocytes # (Manual) 1.4 K/mm3 (0.0-0.8) H 12/19/16 05:02 Eosinophils # (Manual) 0.0 K/mm3 (0.0-0.4) 12/19/16 05:02 Basophils # (Manual) 0.2 K/mm3 (0.0-0.1) H 12/19/16 05:02 Metamyelocytes # 0.0 K/mm3 12/19/16 05:02 Myelocytes # 0.0 K/mm3 12/19/16 05:02 Promyelocytes # 0.0 K/mm3 12/19/16 05:02 Blast Cells # 0.0 K/mm3 12/19/16 05:02 Pathologist Review 09/13/16 04:00 WBC Morphology Not Reportable 12/19/16 05:02 Hypersegmented Neuts Not Reportable 12/19/16 05:02 Hyposegmented Neuts Not Reportable 12/19/16 05:02 Hypogranular Neuts Not Reportable 12/19/16 05:02 Smudge Cells Not Reportable 12/19/16 05:02 Toxic Granulation Not Reportable 12/19/16 05:02 Toxic Vacuolation Not Reportable 12/19/16 05:02 Dohle Bodies Not Reportable 12/19/16 05:02 Pelger-Huet Anomaly Not Reportable 12/19/16 05:02 Jasmina Rods Not Reportable 12/19/16 05:02 Platelet Estimate Consistent w auto 12/19/16 05:02 Clumped Platelets Not Reportable 12/19/16 05:02 Plt Clumps, EDTA Not Reportable 12/19/16 05:02 Large Platelets Not Reportable 12/19/16 05:02 Giant Platelets Not Reportable 12/19/16 05:02 Platelet Satelliting Not Reportable 12/19/16 05:02 Plt Morphology Comment Not Reportable 12/19/16 05:02 RBC Morphology Not Reportable 12/19/16 05:02 Dimorphic RBCs Not Reportable 12/19/16 05:02 Polychromasia Not Reportable 12/19/16 05:02 Hypochromasia Not Reportable 12/19/16 05:02 Poikilocytosis Not Reportable 12/19/16 05:02 Anisocytosis Not Reportable 12/19/16 05:02 Microcytosis Not Reportable 12/19/16 05:02 Macrocytosis Not Reportable 12/19/16 05:02 Spherocytes Not Reportable 12/19/16 05:02 Pappenheimer Bodies Not Reportable 12/19/16 05:02 Sickle Cells Not Reportable 12/19/16 05:02 Target Cells Few 12/19/16 05:02 Tear Drop Cells Not Reportable 12/19/16 05:02 Ovalocytes Not Reportable 12/19/16 05:02 Stomatocytes Rare 12/03/16 04:00 Helmet Cells Not Reportable 12/19/16 05:02 [place] Bodies Not Reportable 12/19/16 05:02 [place] Rings Not Reportable 12/19/16 05:02 Chuck Cells Not Reportable 12/19/16 05:02 Bite Cells Not Reportable 12/19/16 05:02 Crenated Cell Not Reportable 12/19/16 05:02 Elliptocytes Not Reportable 12/19/16 05:02 Acanthocytes (Spur) Not Reportable 12/19/16 05:02 Rouleaux Not Reportable 12/19/16 05:02 Hemoglobin C Crystals Not Reportable 12/19/16 05:02 Schistocytes Not Reportable 12/19/16 05:02 Malaria parasites Not Reportable 12/19/16 05:02 ESR > 140.0 mm/Hr (0-20) 09/08/16 11:48 Jun Bodies Not Reportable 12/19/16 05:02 Hem Pathologist Commnt No 12/19/16 05:02 PT 15.4 Sec. (12.2-14.9) H 01/13/17 15:50 INR 1.16 (0.87-1.13) H 01/13/17 15:50 APTT 33.0 Sec. (24.2-36.6) 10/09/16 03:45 Thrombin Time 16.8 Sec. (15.1-19.6) 09/03/16 00:10 Fibrinogen 750 mg/dl (211-480) H 09/08/16 11:48 Lupus Anticoagulant see below 09/12/16 09:59 LA PTT Baseline See scanned report 09/12/16 09:59 dRVVT Confirm Interp Positive (Negative) H 09/12/16 09:59 dRVVT Screen 50:50 See scanned report 09/12/16 09:59 dRVVT Mix Interpret See scanned report 09/12/16 09:59 Protein C Antigen 122 % (70-140) 09/08/16 15:35 Free Protein S 97 % normal (50-147) 09/08/16 15:35 Total Protein S 109 % (70-140) 09/08/16 15:35 Antithrombin III Ag 100 % (80-120) 09/08/16 15:35 Heparin Anti-Xa, Unfract Negative (Negative) 09/29/16 13:35 Factor V Activity 182 % (65-150) H 09/08/16 15:35 POC ABG pH 7.436 (7.35-7.45) 01/20/17 12: ABG pH 7.450 pH Units (7.350-7.450) 12/05/16 Unknown POC ABG pCO2 35.3 (35-45) 01/20/17 12: ABG pCO2 29.6 mm Hg 12/05/16 Unknown POC ABG pO2 70 (80-105) L 01/20/17 12: ABG pO2 75.2 mm Hg (80.0-90.0) L 12/05/16 Unknown POC ABG HCO3 23.8 01/20/17 12: ABG HCO3 20.1 mmol/L (20.0-26.0) 12/05/16 Unknown POC ABG Total CO2 25 01/20/17 12:17 POC ABG O2 Sat 94 01/20/17 12:17 ABG O2 Saturation 96.8 % (95.0-99.0) 12/05/16 Unknown ABG O2 Content 9.9 (0.0-44) 12/05/16 Unknown POC ABG Base Excess 0 01/20/17 12:17 ABG Base Excess -3.4 mmol/L (-2.0-3.0) L 12/05/16 Unknown ABG Hemoglobin 7.4 gm/dl (12.0-16.0) L 12/05/16 Unknown ABG Carboxyhemoglobin 1.8 % (0.0-5.0) 12/05/16 Unknown ABG Methemoglobin 0.6 % (0.0-1.5) 12/05/16 Unknown Oxyhemoglobin 94.5 % (95.0-99.0) L 12/05/16 Unknown FiO2 30 % 01/20/17 12:17 Sodium 136 mmol/L (137-145) L 02/23/17 05:00 Potassium 3.9 mmol/L (3.6-5.0) 02/23/17 05:00 Chloride 97.1 mmol/L (98-107) L 02/23/17 05:00 Carbon Dioxide 24 mmol/L (22-30) 02/23/17 05:00 Anion Gap 19 mmol/L 02/23/17 05:00 BUN 50 mg/dL (7-17) H 02/23/17 05:00 Creatinine 1.5 mg/dL (0.7-1.2) H 02/23/17 05:00 Estimated GFR 45 ml/min 02/23/17 05:00 BUN/Creatinine Ratio 33 % 02/23/17 05:00 Glucose 97 mg/dL (65-100) 02/23/17 05:00 POC Glucose 110 (70-105) H 02/23/17 05:46 Osmolality 351 Mosm/kg 09/16/16 11:47 Lactic Acid 2.30 mmol/L (0.7-2.0) H* 01/09/17 08:22 Calcium 8.1 mg/dL (8.4-10.2) L 02/23/17 05:00 Ionized Calcium 6.0 mg/dL (4.8-5.6) H 02/15/17 19:08 Phosphorus 1.90 mg/dL (2.5-4.5) L D 02/23/17 05:00 Magnesium 2.00 mg/dL (1.7-2.3) 02/22/17 04:10 Total Bilirubin 0.50 mg/dL (0.1-1.2) 02/22/17 04:10 Direct Bilirubin 0.2 mg/dL (0-0.2) 01/28/17 04:00 Indirect Bilirubin 0.3 mg/dL 01/28/17 04:00 AST 10 units/L (5-40) 02/22/17 04:10 ALT 7 units/L (7-56) 02/22/17 04:10 Alkaline Phosphatase 95 units/L (35-129) 02/22/17 04:10 Ammonia 27.0 umol/L (25-60) 09/07/16 08:37 Lactate Dehydrogenase 170 units/L (91-180) 01/13/17 15:50 Total Creatine Kinase 121 units/L (30-135) 09/29/16 20:12 CK-MB (CK-2) < 1.0 ng/mL (0.0-4.0) 09/29/16 20:12 CK-MB (CK-2) Rel Index 0.8 (0-4) 09/29/16 20:12 Troponin T 0.204 ng/mL (0.00-0.029) H* 09/29/16 20:12 C-Reactive Protein 8.10 mg/dL (0.00-1.30) H 01/31/17 11:12 Total Protein 7.4 g/dL (6.3-8.2) 02/22/17 04:10 Albumin 1.3 g/dL (3.9-5) L 02/22/17 04:10 Albumin/Globulin Ratio 0.2 % 02/22/17 04:10 Prealbumin 0.110 g/L (0.200-0.400) L 12/29/16 05:15 Triglycerides 55 mg/dL (2-149) 02/06/17 04:45 Cholesterol 31 mg/dL (50-199) L 09/29/16 20:12 LDL Cholesterol Direct 4 mg/dL (50-130) L 09/29/16 20:12 HDL Cholesterol 3 mg/dL (40-59) L 09/29/16 20:12 Cholesterol/HDL Ratio 10.33 % 09/29/16 20:12 Angiotensin Convert Enz See scanned report 09/08/16 11:48 Renin 0.99 ng/mL/h (0.25-5.82) 10/07/16 10:56 Aldosterone <1 ng/dL () 10/07/16 10:56 Aldosterone/Renin Dir see below 10/07/16 10:56 Serotonin Release Assay See scanned report 09/29/16 13:35 25-OH Vitamin D Total 13 ng/mL (30-100) L 02/15/17 19:08 25-Hydroxy Vitamin D2 . 02/15/17 19:08 25-Hydroxy Vitamin D3 . 02/15/17 19:08 TSH 1.010 mlU/mL (0.270-4.200) 09/07/16 08:37 HCG, Qual Negative (Negative) 09/03/16 00:10 PTH Intact 10.88 pg/mL (15-65) L 02/15/17 19:08 Total Cortisol 18.2 mcg/dL () 02/02/17 20:09 Urine Color Yellow (Yellow) 11/05/16 13:09 Urine Turbidity Clear (Clear) 11/05/16 13:09 Urine pH 9.0 (5.0-7.0) H 11/05/16 13:09 Ur Specific [place] 1.011 (1.003-1.030) 11/05/16 13:09 Urine Protein 100 mg/dl mg/dL (Negative) 11/05/16 13:09 Urine Glucose (UA) Neg mg/dL (Negative) 11/05/16 13:09 Urine Ketones Neg mg/dL (Negative) 11/05/16 13:09 Urine Blood Neg (Negative) 11/05/16 13:09 Urine Nitrite Neg (Negative) 11/05/16 13:09 Urine Bilirubin Neg (Negative) 11/05/16 13:09 Urine Urobilinogen < 2.0 mg/dL (<2.0) 11/05/16 13:09 Ur Leukocyte Esterase Neg (Negative) 11/05/16 13:09 Urine WBC (Auto) 4.0 /HPF (0.0-6.0) 11/05/16 13:09 Urine RBC (Auto) 1.0 /HPF (0.0-6.0) 11/05/16 13:09 U Epithel Cells (Auto) 1.0 /HPF (0-13.0) 10/07/16 18:30 Urine Bacteria (Auto) 4+ /HPF (Negative) 11/05/16 13:09 Urine WBC Clumps 2+ /HPF 09/07/16 02:47 Hyaline Casts 4 /LPF 09/07/16 02:47 Urine Mucus Few /HPF 10/07/16 18:30 Urine Yeast (Budding) 3+ /HPF 10/07/16 18:30 Urine Eosinophils None seen (None Seen) 09/07/16 16:00 Urine Total Volume 950 11/12/16 10:18 Urine Creatinine 19.7 mg/dL (0.1-20.0) 11/12/16 10:18 Height (in) 65.0 inches 11/12/16 10:18 Weight (lb) 181.0 lbs 11/12/16 10:18 Creatinine Clearance 5 11/12/16 10:18 Urine Sodium 36 mEq/L 09/16/16 19:19 Urine Total Protein 16 mg/dL (5-11.8) H 09/16/16 19:19 Fluid Type Pleural 01/13/17 12:10 Fluid Color Yellow 01/13/17 12:10 Fluid Appearance Hazy 01/13/17 12:10 Fluid WBC 182 /mm3 01/13/17 12:10 Fluid RBC 41 /mm3 01/13/17 12:10 Fluid Seg Neutrophils 85.0 % 01/13/17 12:10 Fluid Lymphocytes 8.0 % 01/13/17 12:10 Fluid Reactive Lymphs 0 % 01/13/17 12:10 Fluid Monocytes 6.0 % 01/13/17 12:10 Fluid Eosinophils 1.0 % 01/13/17 12:10 Fluid Basophils 0 % 01/13/17 12:10 Fluid Total Protein 3.0 (15.0-45.0) L 01/13/17 12:10 Fluid LDH 1322 01/13/17 12:10 Fluid Comment Diff performed 01/13/17 12:10 Vancomycin Trough 2.3 ug/mL (5.0-20.0) L 09/21/16 13:00 Random Vancomycin 16.5 ug/mL (0-40.0) 11/28/16 09:45 Urine Opiates Screen Presumptive negative 09/03/16 15:11 Urine Methadone Screen Presumptive positive 09/03/16 15:11 Ur Barbiturates Screen Presumptive positive 09/03/16 15:11 Ur Phencyclidine Scrn Presumptive negative 09/03/16 15:11 Ur Amphetamines Screen Presumptive negative 09/03/16 15:11 U Benzodiazepines Scrn Presumptive negative 09/03/16 15:11 Urine Cocaine Screen Presumptive negative 09/03/16 15:11 U Marijuana (THC) Screen Presumptive positive 09/03/16 15:11 Drugs of Abuse Note Disclamer 09/03/16 15:11 Rheumatoid Factor 24 IU/ml (0-13) H 09/08/16 11:48 SAHIL Screen Negative (Negative) 09/07/16 09:20 Proteinase 3 (PR3) Ab <1.0 AI (<1.0) 09/07/16 09:20 Myeloperoxidase Ab <1.0 AI (<1.0) 09/07/16 09:20 Sjogren's Antibody <1.0 AI (<1.0) 09/08/16 15:35 Scl-70 Scleroderma Ab <1.0 AI (<1.0) 09/08/16 15:35 Centromere B Antibody <1.0 AI (<1.0) 09/08/16 12:02 Heparin-induced Plt Ab Negative (Negative) 09/29/16 13:35 UF Heparin High Dose 11 % Release 09/29/16 13:35 SUDHIR UFH Low Dose 0.1 6 % Release 09/29/16 13:35 SUDHIR UFH Low Dose 0.5 8 % Release 09/29/16 13:35 Cardiolipid IgG Ab <14 GPL (<=14) 09/12/16 09:59 Cardiolipid IgA Ab <11 APL (<=11) 09/12/16 09:59 Cardiolipid IgM Ab <12 MPL (<=12) 09/12/16 09:59 Complement C3 148 mg/dL (90-180) 09/07/16 09:20 Complement C4 58 mg/dL (16-47) H 09/07/16 09:20 RPR Nonreactive (Nonreactive) 09/08/16 11:48 Hepatitis A IgM Ab Non-reactive (NonReactive) 09/24/16 14:40 Hep Bs Antigen Non-reactive (Negative) 09/24/16 14:40 Hep B Core IgM Ab Non-reactive (NonReactive) 09/24/16 14:40 Hepatitis C Antibody Non-reactive (NonReactive) 09/24/16 14:40 HIV 1&2 Antibody Rapid Non react (Non React) 09/08/16 11:48 HIV P24 Antigen Non react (Non React) 09/08/16 11:48 Miscellaneous Test Flexitest 1 H 01/09/17 18:45 Blood Type A POSITIVE 02/12/17 10:25 Antibody Screen Negative 02/12/17 10:25 DELORIS Antibody Screen Negative 11/24/16 11:20 Crossmatch See Detail 02/12/17 10:25
--- NOTE | 2017-02-23 09:50 | Progress Note ---
Assessment and Plan - Patient Problems (1) JUANITA (acute kidney injury) Current Visit: Yes Status: Acute Plan to address problem: JUANITA with multiple medical problems-Dialysis dependent. Acute on chronic respiratory failure-ventilator dependent. Multiple comorbid conditions. S/P surgical debridement for sacral decubitus. Encephalopathy-same. HD on M/W/F with UF as ordered. Supportive care. Consultants , Hospitalist notes reviewed. (2) Acute CVA (cerebrovascular accident) Current Visit: Yes Status: Acute (3) Acute respiratory failure with hypoxia Current Visit: Yes Status: Acute (4) Atrial fibrillation Current Visit: Yes Status: Chronic (5) Type 2 diabetes mellitus Current Visit: Yes Status: Chronic (6) Anemia Current Visit: No Status: Acute Qualifiers: Anemia type: unspecified type Qualified Code(s): D64.9 - Anemia, unspecified (7) HTN (hypertension) Current Visit: Yes Status: Chronic (8) Diabetes Current Visit: Yes Status: Chronic Qualifiers: Diabetes mellitus type: type 2 Diabetes mellitus complication status: with hyperglycemia Subjective Date of service: 02/23/17 Principal diagnosis: Acute resp failure on MVS; S/P Acute CVA; Acute Encephalopathy; JUANITA Interval history: clinical condition -same, on ventilator via trach. Fio2-25%. Pt remains non communicative. Objective - Vital Signs Vital signs: Vital Signs - 12hr 02/22/17 02/22/17 02/22/17 22:00 22:15 22:17 Temperature Pulse Rate 99 H 94 H Pulse Rate [ From Monitor] Pulse Rate [ 95 H Throughout] Respiratory 33 H 22 Rate Respiratory 17 Rate [ Generalized] Respiratory 19 Rate [ Throughout] Blood Pressure 120/75 131/87 O2 Sat by Pulse 84 100 Oximetry O2 Sat by Pulse Oximetry [ Assessment] 02/22/17 02/22/17 02/22/17 22:20 22:30 22:45 Temperature Pulse Rate 95 H 97 H 97 H Pulse Rate [ From Monitor] Pulse Rate [ Throughout] Respiratory 23 17 Rate Respiratory Rate [ Generalized] Respiratory Rate [ Throughout] Blood Pressure 131/87 122/81 129/80 O2 Sat by Pulse 100 100 100 Oximetry O2 Sat by Pulse Oximetry [ Assessment] 02/22/17 02/22/17 02/22/17 23:00 23:15 23:22 Temperature Pulse Rate 98 H 96 H 97 H Pulse Rate [ From Monitor] Pulse Rate [ Throughout] Respiratory 20 21 23 Rate Respiratory Rate [ Generalized] Respiratory Rate [ Throughout] Blood Pressure 129/82 135/85 135/85 O2 Sat by Pulse 99 99 100 Oximetry O2 Sat by Pulse Oximetry [ Assessment] 02/22/17 02/22/17 02/23/17 23:30 23:45 00:00 Temperature 99.0 F Pulse Rate 96 H 96 H 95 H Pulse Rate [ From Monitor] Pulse Rate [ Throughout] Respiratory 19 25 H 24 Rate Respiratory Rate [ Generalized] Respiratory Rate [ Throughout] Blood Pressure 131/83 121/78 126/78 O2 Sat by Pulse 93 98 Oximetry O2 Sat by Pulse Oximetry [ Assessment] 02/23/17 02/23/17 02/23/17 00:15 00:30 00:45 Temperature Pulse Rate 95 H 101 H 102 H Pulse Rate [ From Monitor] Pulse Rate [ Throughout] Respiratory 22 24 21 Rate Respiratory Rate [ Generalized] Respiratory Rate [ Throughout] Blood Pressure 124/88 112/91 131/95 O2 Sat by Pulse 98 98 97 Oximetry O2 Sat by Pulse Oximetry [ Assessment] 02/23/17 02/23/17 02/23/17 00:56 01:00 01:15 Temperature Pulse Rate 101 H 100 H 99 H Pulse Rate [ From Monitor] Pulse Rate [ Throughout] Respiratory 20 20 Rate Respiratory Rate [ Generalized] Respiratory Rate [ Throughout] Blood Pressure 131/95 131/95 135/91 O2 Sat by Pulse 100 100 98 Oximetry O2 Sat by Pulse 99 Oximetry [ Assessment] 02/23/17 02/23/17 02/23/17 01:30 01:45 02:00 Temperature Pulse Rate 98 H 99 H 99 H Pulse Rate [ From Monitor] Pulse Rate [ Throughout] Respiratory 22 21 20 Rate Respiratory Rate [ Generalized] Respiratory Rate [ Throughout] Blood Pressure 123/72 132/74 137/86 O2 Sat by Pulse 98 97 99 Oximetry O2 Sat by Pulse Oximetry [ Assessment] 02/23/17 02/23/17 02/23/17 02:15 02:30 02:45 Temperature Pulse Rate 101 H 100 H 102 H Pulse Rate [ From Monitor] Pulse Rate [ Throughout] Respiratory 20 24 23 Rate Respiratory Rate [ Generalized] Respiratory Rate [ Throughout] Blood Pressure 126/77 122/78 138/85 O2 Sat by Pulse 97 96 98 Oximetry O2 Sat by Pulse Oximetry [ Assessment] 02/23/17 02/23/17 02/23/17 03:00 03:15 03:30 Temperature Pulse Rate 101 H 103 H 102 H Pulse Rate [ From Monitor] Pulse Rate [ Throughout] Respiratory 23 24 21 Rate Respiratory Rate [ Generalized] Respiratory Rate [ Throughout] Blood Pressure 134/84 127/82 115/82 O2 Sat by Pulse 100 100 100 Oximetry O2 Sat by Pulse Oximetry [ Assessment] 02/23/17 02/23/17 02/23/17 03:45 04:00 04:15 Temperature 99.1 F Pulse Rate 111 H 103 H 107 H Pulse Rate [ 76 From Monitor] Pulse Rate [ Throughout] Respiratory 36 H 21 22 Rate Respiratory Rate [ Generalized] Respiratory Rate [ Throughout] Blood Pressure 132/96 132/88 139/86 O2 Sat by Pulse 93 97 Oximetry O2 Sat by Pulse Oximetry [ Assessment] 02/23/17 02/23/17 02/23/17 04:30 04:45 05:00 Temperature Pulse Rate 108 H 133 H 110 H Pulse Rate [ From Monitor] Pulse Rate [ Throughout] Respiratory 26 H 27 H 26 H Rate Respiratory Rate [ Generalized] Respiratory Rate [ Throughout] Blood Pressure 149/90 149/90 122/68 O2 Sat by Pulse 94 Oximetry O2 Sat by Pulse Oximetry [ Assessment] 02/23/17 02/23/17 02/23/17 05:15 05:30 05:45 Temperature Pulse Rate 106 H 105 H 103 H Pulse Rate [ From Monitor] Pulse Rate [ Throughout] Respiratory 21 26 H 18 Rate Respiratory Rate [ Generalized] Respiratory Rate [ Throughout] Blood Pressure 112/66 103/62 101/62 O2 Sat by Pulse 89 91 100 Oximetry O2 Sat by Pulse Oximetry [ Assessment] 02/23/17 06:00 Temperature Pulse Rate 102 H Pulse Rate [ From Monitor] Pulse Rate [ Throughout] Respiratory 20 Rate Respiratory Rate [ Generalized] Respiratory Rate [ Throughout] Blood Pressure 95/57 O2 Sat by Pulse 100 Oximetry O2 Sat by Pulse Oximetry [ Assessment] - General Appearance General appearance: chronically ill, intubated EENT: mucous membranes dry Neck: no JVD Respiratory: Present: Decreased Breath Sounds Cardiology: regular Gastrointestinal: normoactive bowel sounds - Lab 02/19/17 09:45 02/23/17 05:00 Most recent lab results ABG pH 7.450 pH Units (7.350-7.450) 12/05/16 Unknown ABG pCO2 29.6 mm Hg 12/05/16 Unknown ABG pO2 75.2 mm Hg (80.0-90.0) L 12/05/16 Unknown ABG HCO3 20.1 mmol/L (20.0-26.0) 12/05/16 Unknown ABG O2 Saturation 96.8 % (95.0-99.0) 12/05/16 Unknown Calcium 8.1 mg/dL (8.4-10.2) L 02/23/17 05:00 Phosphorus 1.90 mg/dL (2.5-4.5) L D 02/23/17 05:00 Magnesium 2.00 mg/dL (1.7-2.3) 02/22/17 04:10 Urine Creatinine 19.7 mg/dL (0.1-20.0) 11/12/16 10:18 Urine Sodium 36 mEq/L 09/16/16 19:19 Urine Total Protein 16 mg/dL (5-11.8) H 09/16/16 19:19
[2017-02-23] MEDS: DUONEB *Not for PRN Use IH SCH ×3 (09:56→20:20)
[2017-02-23] MEDS: PEPCID IV SCH (10:11)
[2017-02-23] MEDS: HEPARIN SUB-Q SCH ×2 (10:11→21:59)
[2017-02-23] MEDS ORDERED: TPN ADULT IV SCH (20:00)
[2017-02-24] MEDS: REGLAN IV SCH ×4 (05:07→23:00)
[2017-02-24] MEDS: HumuLIN R SUB-Q SCH ×4 (05:08→23:00)
[2017-02-24] MEDS: CORDARONE 900 MG in D5W 482 ML IV SCH (05:44)
[2017-02-24 06:04] LABS: Calcium 9.3 mg/dL (8.4-10.2)
[2017-02-24] MEDS: DUONEB *Not for PRN Use IH SCH ×3 (08:22→21:23)
--- NOTE | 2017-02-24 09:50 | Progress Note ---
Subjective Principal diagnosis: Acute resp failure on MVS; S/P Acute CVA; Acute Encephalopathy; JUANITA Interval history: Patient was seen today for follow-up on multiple renal related issues Events of this hospitalization noted, she remains dialysis dependent Monday and Monday I do not see any blood count done today Vitals labs intake output medications were reviewed Social history: Reviewed Allergies: Reviewed Family history: Reviewed Physical examination HEENT: Oral mucosa moist no pallor or icterus Neck: Supple no JVD Chest: Clear to auscultation anteriorly CVS: Regular rate and rhythm apical heart rate 118/m S1 and S2 heard Abdomen: Soft nontender no suprapubic masses no organomegaly appreciable Extremity: Dry skin less than 1+ peripheral edema Musculoskeletal: No joint effusion noted in knees and ankle Dermatology: No petechial rashes Psychiatry: No evidence of any agitation and aggression noted Assessment and plan End-stage renal disease: Patient has not shown any signs of improvement in renal function she'll continue to dialyze 3 times a week as tolerated with judicious ultrafiltration and close monitoring of hemodynamics today she appears to be tachycardic and hence will consider withholding dialysis at this time unless she is more stable please avoid albuterol in her case She will need CBC BMP phosphorus level drawn periodically Anemia in end-stage renal disease: To monitor and follow Secondary hyperparathyroidism: To monitor and follow phosphorus and PTH level phosphorus has been relatively low periodically will need replacement, current phosphorus 3.0 Status post acute CVA, bacteremia, Hypotension tachycardia: To monitor and follow Respiratory failure currently ventilator dependent status post tracheotomy History of gram-negative sepsis, candidemia, peritonitis Persistent vegetative state Atrial fibrillation, diabetes, hyperlipidemia, renovascular hypertension, sacral decubitus ulcer We'll continue to follow and make recommendation from renal standpoint Objective - Vital Signs Vital signs: Vital Signs - 12hr 02/23/17 02/23/17 02/23/17 22:00 23:00 23:35 Temperature Pulse Rate 109 H 105 H 101 H Pulse Rate [ Apical] Pulse Rate [ From Monitor] Respiratory 19 22 16 Rate Respiratory 19 Rate [ Generalized] Blood Pressure 158/95 141/90 151/89 O2 Sat by Pulse 100 97 100 Oximetry O2 Sat by Pulse Oximetry [ Assessment] 02/23/17 02/24/17 02/24/17 23:57 00:00 00:45 Temperature 98.4 F Pulse Rate 101 H 108 H Pulse Rate [ Apical] Pulse Rate [ From Monitor] Respiratory 15 Rate Respiratory Rate [ Generalized] Blood Pressure 133/91 159/96 O2 Sat by Pulse 100 98 Oximetry O2 Sat by Pulse 97 Oximetry [ Assessment] 02/24/17 02/24/17 02/24/17 01:00 02:00 03:00 Temperature Pulse Rate 108 H 109 H 107 H Pulse Rate [ Apical] Pulse Rate [ From Monitor] Respiratory 18 17 22 Rate Respiratory Rate [ Generalized] Blood Pressure 148/100 144/95 148/93 O2 Sat by Pulse 100 100 97 Oximetry O2 Sat by Pulse Oximetry [ Assessment] 02/24/17 02/24/17 02/24/17 04:00 04:50 05:00 Temperature 98.4 F Pulse Rate 107 H 111 H 111 H Pulse Rate [ 101 H Apical] Pulse Rate [ 101 H From Monitor] Respiratory 20 13 Rate Respiratory Rate [ Generalized] Blood Pressure 151/89 149/92 146/95 O2 Sat by Pulse 100 98 100 Oximetry O2 Sat by Pulse Oximetry [ Assessment] 02/24/17 02/24/17 06:00 08:00 Temperature 99.8 F H Pulse Rate 123 H 125 H Pulse Rate [ Apical] Pulse Rate [ From Monitor] Respiratory 32 H Rate Respiratory Rate [ Generalized] Blood Pressure 162/97 167/93 O2 Sat by Pulse 79 L 100 Oximetry O2 Sat by Pulse Oximetry [ Assessment] - Lab 02/24/17 10:05 02/24/17 05:20 Most recent lab results ABG pH 7.450 pH Units (7.350-7.450) 12/05/16 Unknown ABG pCO2 29.6 mm Hg 12/05/16 Unknown ABG pO2 75.2 mm Hg (80.0-90.0) L 12/05/16 Unknown ABG HCO3 20.1 mmol/L (20.0-26.0) 12/05/16 Unknown ABG O2 Saturation 96.8 % (95.0-99.0) 12/05/16 Unknown Calcium 9.3 mg/dL (8.4-10.2) 02/24/17 05:20 Phosphorus 3.00 mg/dL (2.5-4.5) D 02/24/17 05:20 Magnesium 1.80 mg/dL (1.7-2.3) 02/24/17 05:20 Urine Creatinine 19.7 mg/dL (0.1-20.0) 11/12/16 10:18 Urine Sodium 36 mEq/L 09/16/16 19:19 Urine Total Protein 16 mg/dL (5-11.8) H 09/16/16 19:19
[2017-02-24 10:36] LABS: Basophils % (Auto) 0.5 % (0.0-1.8); Eosinophils # (Auto) 0.1 K/mm3 (0.0-0.4); Eosinophils % (Auto) 0.7 % (0.0-4.3); Hematocrit 25.7 % (30.3-42.9); Hemoglobin 8.4 gm/dl (10.1-14.3); Lymphocytes % (Auto) 19.8 % (13.4-35.0); Mean Corpuscular HGB Conc 33 % (30-34); Mean Corpuscular Hemoglobin 28 pg (28-32); Mean Corpuscular Volume 87 fl (79-97); Monocytes # (Auto) 0.7 K/mm3 (0.0-0.8); Monocytes % (Auto) 7.2 % (0.0-7.3); Platelet Count 333 K/mm3 (140-440); Red Blood Count 2.95 M/mm3 (3.65-5.03)
[2017-02-24 10:37] LABS: Red Cell Distribution Width 20.8 % (13.2-15.2)
[2017-02-24] MEDS: HEPARIN SUB-Q SCH ×2 (11:06→20:37)
[2017-02-24] MEDS: DURAGESIC TD SCH (11:06)
[2017-02-24] MEDS: PEPCID IV SCH (11:07)
--- NOTE | 2017-02-24 15:28 | Progress Note ---
Assessment and Plan Assessment and plan: Patient is 46-year-old woman with a history of hypertension, diabetes, asthma, hyperlipidemia, chronic kidney disease and anxiety , who was brought in by family because, she couldn't get her words out, her face was also twisted, she was admitted for acute CVA and accelerated hypertension, she had a hx of poor adherence with her medications, and uncontrolled htn. Patient's SBP on admission was noted be greater than 260. TPA was started but this was discontinued after 5 minutes because her blood pressure became uncontrolled. The TPA was not initiated again because the patient was outside the TPA window. Fever obtain UA, UC, blood cx and CXR if continues to spike fever, will consult ID Status post cardiac arrest , 11/21/16 on Mechanical ventilation >96 hrs, >3 months Vent Dependant Respirtory failure secodnary to Anoxic Brain injury S/P Tracheostomy Severe Sepsis with septic shock; has completed abx, case dw ID Surgical wound infection/gram-negative sepsis/candidemia/peritonitis - On TPN ESRD - on HD - Cr 1.9 today Acute CVA with infarct - Neurology input appreciated - CT shows continued evolution of left MCA infarct with slight mass effect and edema, and there is no hemorrhage - PRINCE showed hyperdynamic with ef of 75%, neither clot nor septal defect seen - MRA Brain shows near complete occlusion of M2 and M3 of the left MCA - Repeat CT scan done on 09/11, shows stable findings - carotid doppler negative - Echo shows preserved systolic function but does show some left ventricular diastolic dysfunction - continue asa and statin Persistent vegetative state - This patient's needs placement at SNF - She was denied for LTACH Nosocomial acquired aspiration pneumonia/sepsis/UTI/PERITONITIS - Has been on multiple antibiotics, expect recurrent sepsis due to now known Bowel perforation not amendable to surgery due to clinical condition A. fib with RVR -On amio drip, cannot change to PO due to persistent nausea and vomiting Diabetes type 2. -Continue sliding-scale regular insulin and Accu-Cheks. Hyperlipidemia. Continue statin Severe Protein calorie Malnutrition/Adult failure to thrive - TPN Anemia requiring multiple transfusions/acute blood loss - currently stable - Check AM labs - Will transfuse if it is below 7 Sacral decubitus ulcer - Status post debridement -Wound vac in place Disposition. Very poor prognosis. DNR - The high probability of a clinically significant, sudden or life threatening deterioration of the [neurologic, CV] system(s) required my full and direct attention, intervention and personal management. The aggregate critical care time was [35] minutes. This time is in addition to time spent performing reported procedures but includes the following: [x] Data Review and interpretation [x] Patient assessment and monitoring of vital signs [x] Documentation [x] Medication orders and management History Interval history: patient seen and examined, remains unresponsive on the ventilator. afebrile overnight, no vomiting was tachypneic and tachycardic overnight Hospitalist Physical - Physical exam Narrative exam: GEN: Ill appearing, trach, staring into space,, non purposeful movement NECK: SUPPLE, trach in place, ngt in place and to suction. CVS:Irregular Irregular with LUNGS/CHEST: NORMAL CHEST EXPANSION B, GOOD AIR ENTRY B, tachypena ABD: SOFT, no grimise on abdominal palpation, Ostomy bags at two side by side fistula site. GBS, NO REBOUND OR GUARDING, peg tube in place EXT/SKIN: NO SIGNIFICANT EDEMA BUT WITH UNSTAGEABLE SACRAL DECUB, wound vac inplace MSK: +spontaneous non purposeful movement NEURO: on a ventilator and unresponsive despite being off sedation PSY: Comatose, - Constitutional Vitals: Temp Pulse Resp BP Pulse Ox 98.2 F 111 H 25 H 129/82 100 02/24/17 12:00 02/24/17 13:02 02/24/17 13:02 02/24/17 13:00 02/24/17 13:00 General appearance: Present: no acute distress, well-nourished Results - Labs CBC & Chem 7: 02/24/17 10:05 02/24/17 05:20 Labs: Laboratory Last Values WBC 10.2 K/mm3 (4.5-11.0) 02/24/17 10:05 RBC 2.95 M/mm3 (3.65-5.03) L 02/24/17 10:05 Hgb 8.4 gm/dl (10.1-14.3) L 02/24/17 10:05 Hct 25.7 % (30.3-42.9) L 02/24/17 10:05 MCV 87 fl (79-97) 02/24/17 10:05 MCH 28 pg (28-32) 02/24/17 10:05 MCHC 33 % (30-34) 02/24/17 10:05 RDW 20.8 % (13.2-15.2) H 02/24/17 10:05 Plt Count 333 K/mm3 (140-440) 02/24/17 10:05 Lymph % (Auto) 19.8 % (13.4-35.0) 02/24/17 10:05 Luna % (Auto) 7.2 % (0.0-7.3) 02/24/17 10:05 Eos % (Auto) 0.7 % (0.0-4.3) 02/24/17 10:05 Baso % (Auto) 0.5 % (0.0-1.8) 02/24/17 10:05 Lymph # 2.0 K/mm3 (1.2-5.4) 02/24/17 10:05 Luna # 0.7 K/mm3 (0.0-0.8) 02/24/17 10:05 Eos # 0.1 K/mm3 (0.0-0.4) 02/24/17 10:05 Baso # 0.0 K/mm3 (0.0-0.1) 02/24/17 10:05 Add Manual Diff Complete 12/19/16 05:02 Total Counted 100 12/19/16 05:02 Seg Neutrophils % 71.8 % (40.0-70.0) H 02/24/17 10:05 Seg Neuts % (Manual) 64.0 % (40.0-70.0) 12/19/16 05:02 Band Neutrophils % 15.0 % 12/19/16 05:02 Lymphocytes % (Manual) 13.0 % (13.4-35.0) L 12/19/16 05:02 Reactive Lymphs % (Man) 0 % 12/19/16 05:02 Monocytes % (Manual) 7.0 % (0.0-7.3) 12/19/16 05:02 Eosinophils % (Manual) 0 % (0.0-4.3) 12/19/16 05:02 Basophils % (Manual) 1.0 % (0.0-1.8) 12/19/16 05:02 Metamyelocytes % 0 % 12/19/16 05:02 Myelocytes % 0 % 12/19/16 05:02 Promyelocytes % 0 % 12/19/16 05:02 Blast Cells % 0 % 12/19/16 05:02 Nucleated RBC % 1.0 % (0.0-0.9) H 12/19/16 05:02 Seg Neutrophils # 7.3 K/mm3 (1.8-7.7) 02/24/17 10:05 Seg Neutrophils # Man 12.9 K/mm3 (1.8-7.7) H 12/19/16 05:02 Band Neutrophils # 3.0 K/mm3 12/19/16 05:02 Lymphocytes # (Manual) 2.6 K/mm3 (1.2-5.4) 12/19/16 05:02 Abs React Lymphs (Man) 0.0 K/mm3 12/19/16 05:02 Monocytes # (Manual) 1.4 K/mm3 (0.0-0.8) H 12/19/16 05:02 Eosinophils # (Manual) 0.0 K/mm3 (0.0-0.4) 12/19/16 05:02 Basophils # (Manual) 0.2 K/mm3 (0.0-0.1) H 12/19/16 05:02 Metamyelocytes # 0.0 K/mm3 12/19/16 05:02 Myelocytes # 0.0 K/mm3 12/19/16 05:02 Promyelocytes # 0.0 K/mm3 12/19/16 05:02 Blast Cells # 0.0 K/mm3 12/19/16 05:02 Pathologist Review 09/13/16 04:00 WBC Morphology Not Reportable 12/19/16 05:02 Hypersegmented Neuts Not Reportable 12/19/16 05:02 Hyposegmented Neuts Not Reportable 12/19/16 05:02 Hypogranular Neuts Not Reportable 12/19/16 05:02 Smudge Cells Not Reportable 12/19/16 05:02 Toxic Granulation Not Reportable 12/19/16 05:02 Toxic Vacuolation Not Reportable 12/19/16 05:02 Dohle Bodies Not Reportable 12/19/16 05:02 Pelger-Huet Anomaly Not Reportable 12/19/16 05:02 Jasmina Rods Not Reportable 12/19/16 05:02 Platelet Estimate Consistent w auto 12/19/16 05:02 Clumped Platelets Not Reportable 12/19/16 05:02 Plt Clumps, EDTA Not Reportable 12/19/16 05:02 Large Platelets Not Reportable 12/19/16 05:02 Giant Platelets Not Reportable 12/19/16 05:02 Platelet Satelliting Not Reportable 12/19/16 05:02 Plt Morphology Comment Not Reportable 12/19/16 05:02 RBC Morphology Not Reportable 12/19/16 05:02 Dimorphic RBCs Not Reportable 12/19/16 05:02 Polychromasia Not Reportable 12/19/16 05:02 Hypochromasia Not Reportable 12/19/16 05:02 Poikilocytosis Not Reportable 12/19/16 05:02 Anisocytosis Not Reportable 12/19/16 05:02 Microcytosis Not Reportable 12/19/16 05:02 Macrocytosis Not Reportable 12/19/16 05:02 Spherocytes Not Reportable 12/19/16 05:02 Pappenheimer Bodies Not Reportable 12/19/16 05:02 Sickle Cells Not Reportable 12/19/16 05:02 Target Cells Few 12/19/16 05:02 Tear Drop Cells Not Reportable 12/19/16 05:02 Ovalocytes Not Reportable 12/19/16 05:02 Stomatocytes Rare 12/03/16 04:00 Helmet Cells Not Reportable 12/19/16 05:02 Monet-Frankford Bodies Not Reportable 12/19/16 05:02 Hodges Rings Not Reportable 12/19/16 05:02 Chuck Cells Not Reportable 12/19/16 05:02 Bite Cells Not Reportable 12/19/16 05:02 Crenated Cell Not Reportable 12/19/16 05:02 Elliptocytes Not Reportable 12/19/16 05:02 Acanthocytes (Spur) Not Reportable 12/19/16 05:02 Rouleaux Not Reportable 12/19/16 05:02 Hemoglobin C Crystals Not Reportable 12/19/16 05:02 Schistocytes Not Reportable 12/19/16 05:02 Malaria parasites Not Reportable 12/19/16 05:02 ESR > 140.0 mm/Hr (0-20) 09/08/16 11:48 Jun Bodies Not Reportable 12/19/16 05:02 Hem Pathologist Commnt No 12/19/16 05:02 PT 15.4 Sec. (12.2-14.9) H 01/13/17 15:50 INR 1.16 (0.87-1.13) H 01/13/17 15:50 APTT 33.0 Sec. (24.2-36.6) 10/09/16 03:45 Thrombin Time 16.8 Sec. (15.1-19.6) 09/03/16 00:10 Fibrinogen 750 mg/dl (211-480) H 09/08/16 11:48 Lupus Anticoagulant see below 09/12/16 09:59 LA PTT Baseline See scanned report 09/12/16 09:59 dRVVT Confirm Interp Positive (Negative) H 09/12/16 09:59 dRVVT Screen 50:50 See scanned report 09/12/16 09:59 dRVVT Mix Interpret See scanned report 09/12/16 09:59 Protein C Antigen 122 % (70-140) 09/08/16 15:35 Free Protein S 97 % normal (50-147) 09/08/16 15:35 Total Protein S 109 % (70-140) 09/08/16 15:35 Antithrombin III Ag 100 % (80-120) 09/08/16 15:35 Heparin Anti-Xa, Unfract Negative (Negative) 09/29/16 13:35 Factor V Activity 182 % (65-150) H 09/08/16 15:35 POC ABG pH 7.436 (7.35-7.45) 01/20/17 12: ABG pH 7.450 pH Units (7.350-7.450) 12/05/16 Unknown POC ABG pCO2 35.3 (35-45) 01/20/17 12:17 ABG pCO2 29.6 mm Hg 12/05/16 Unknown POC ABG pO2 70 (80-105) L 01/20/17 12: ABG pO2 75.2 mm Hg (80.0-90.0) L 12/05/16 Unknown POC ABG HCO3 23.8 01/20/17 12:17 ABG HCO3 20.1 mmol/L (20.0-26.0) 12/05/16 Unknown POC ABG Total CO2 25 01/20/17 12:17 POC ABG O2 Sat 94 01/20/17 12:17 ABG O2 Saturation 96.8 % (95.0-99.0) 12/05/16 Unknown ABG O2 Content 9.9 (0.0-44) 12/05/16 Unknown POC ABG Base Excess 0 01/20/17 12:17 ABG Base Excess -3.4 mmol/L (-2.0-3.0) L 12/05/16 Unknown ABG Hemoglobin 7.4 gm/dl (12.0-16.0) L 12/05/16 Unknown ABG Carboxyhemoglobin 1.8 % (0.0-5.0) 12/05/16 Unknown ABG Methemoglobin 0.6 % (0.0-1.5) 12/05/16 Unknown Oxyhemoglobin 94.5 % (95.0-99.0) L 12/05/16 Unknown FiO2 30 % 01/20/17 12:17 Sodium 136 mmol/L (137-145) L 02/24/17 05:20 Potassium 4.0 mmol/L (3.6-5.0) 02/24/17 05:20 Chloride 95.5 mmol/L (98-107) L 02/24/17 05:20 Carbon Dioxide 25 mmol/L (22-30) 02/24/17 05:20 Anion Gap 20 mmol/L 02/24/17 05:20 BUN 76 mg/dL (7-17) H 02/24/17 05:20 Creatinine 2.2 mg/dL (0.7-1.2) H 02/24/17 05:20 Estimated GFR 29 ml/min 02/24/17 05:20 BUN/Creatinine Ratio 35 % 02/24/17 05:20 Glucose 109 mg/dL (65-100) H 02/24/17 05:20 POC Glucose 123 (70-105) H 02/24/17 11:34 Osmolality 351 Mosm/kg 09/16/16 11:47 Lactic Acid 2.30 mmol/L (0.7-2.0) H* 01/09/17 08:22 Calcium 9.3 mg/dL (8.4-10.2) 02/24/17 05:20 Ionized Calcium 6.0 mg/dL (4.8-5.6) H 02/15/17 19:08 Phosphorus 3.00 mg/dL (2.5-4.5) D 02/24/17 05:20 Magnesium 1.80 mg/dL (1.7-2.3) 02/24/17 05:20 Total Bilirubin 0.50 mg/dL (0.1-1.2) 02/22/17 04:10 Direct Bilirubin 0.2 mg/dL (0-0.2) 01/28/17 04:00 Indirect Bilirubin 0.3 mg/dL 01/28/17 04:00 AST 10 units/L (5-40) 02/22/17 04:10 ALT 7 units/L (7-56) 02/22/17 04:10 Alkaline Phosphatase 95 units/L (35-129) 02/22/17 04:10 Ammonia 27.0 umol/L (25-60) 09/07/16 08:37 Lactate Dehydrogenase 170 units/L (91-180) 01/13/17 15:50 Total Creatine Kinase 121 units/L (30-135) 09/29/16 20:12 CK-MB (CK-2) < 1.0 ng/mL (0.0-4.0) 09/29/16 20:12 CK-MB (CK-2) Rel Index 0.8 (0-4) 09/29/16 20:12 Troponin T 0.204 ng/mL (0.00-0.029) H* 09/29/16 20:12 C-Reactive Protein 8.10 mg/dL (0.00-1.30) H 01/31/17 11:12 Total Protein 7.4 g/dL (6.3-8.2) 02/22/17 04:10 Albumin 1.3 g/dL (3.9-5) L 02/22/17 04:10 Albumin/Globulin Ratio 0.2 % 02/22/17 04:10 Prealbumin 0.110 g/L (0.200-0.400) L 12/29/16 05:15 Triglycerides 55 mg/dL (2-149) 02/06/17 04:45 Cholesterol 31 mg/dL (50-199) L 09/29/16 20:12 LDL Cholesterol Direct 4 mg/dL (50-130) L 09/29/16 20:12 HDL Cholesterol 3 mg/dL (40-59) L 09/29/16 20:12 Cholesterol/HDL Ratio 10.33 % 09/29/16 20:12 Angiotensin Convert Enz See scanned report 09/08/16 11:48 Renin 0.99 ng/mL/h (0.25-5.82) 10/07/16 10:56 Aldosterone <1 ng/dL () 10/07/16 10:56 Aldosterone/Renin Dir see below 10/07/16 10:56 Serotonin Release Assay See scanned report 09/29/16 13:35 25-OH Vitamin D Total 13 ng/mL (30-100) L 02/15/17 19:08 25-Hydroxy Vitamin D2 . 02/15/17 19:08 25-Hydroxy Vitamin D3 . 02/15/17 19:08 TSH 1.010 mlU/mL (0.270-4.200) 09/07/16 08:37 HCG, Qual Negative (Negative) 09/03/16 00:10 PTH Intact 10.88 pg/mL (15-65) L 02/15/17 19:08 Total Cortisol 18.2 mcg/dL () 02/02/17 20:09 Urine Color Yellow (Yellow) 11/05/16 13:09 Urine Turbidity Clear (Clear) 11/05/16 13:09 Urine pH 9.0 (5.0-7.0) H 11/05/16 13:09 Ur Specific [facility] 1.011 (1.003-1.030) 11/05/16 13:09 Urine Protein 100 mg/dl mg/dL (Negative) 11/05/16 13:09 Urine Glucose (UA) Neg mg/dL (Negative) 11/05/16 13:09 Urine Ketones Neg mg/dL (Negative) 11/05/16 13:09 Urine Blood Neg (Negative) 11/05/16 13:09 Urine Nitrite Neg (Negative) 11/05/16 13:09 Urine Bilirubin Neg (Negative) 11/05/16 13:09 Urine Urobilinogen < 2.0 mg/dL (<2.0) 11/05/16 13:09 Ur Leukocyte Esterase Neg (Negative) 11/05/16 13:09 Urine WBC (Auto) 4.0 /HPF (0.0-6.0) 11/05/16 13:09 Urine RBC (Auto) 1.0 /HPF (0.0-6.0) 11/05/16 13:09 U Epithel Cells (Auto) 1.0 /HPF (0-13.0) 10/07/16 18:30 Urine Bacteria (Auto) 4+ /HPF (Negative) 11/05/16 13:09 Urine WBC Clumps 2+ /HPF 09/07/16 02:47 Hyaline Casts 4 /LPF 09/07/16 02:47 Urine Mucus Few /HPF 10/07/16 18:30 Urine Yeast (Budding) 3+ /HPF 10/07/16 18:30 Urine Eosinophils None seen (None Seen) 09/07/16 16:00 Urine Total Volume 950 11/12/16 10:18 Urine Creatinine 19.7 mg/dL (0.1-20.0) 11/12/16 10:18 Height (in) 65.0 inches 11/12/16 10:18 Weight (lb) 181.0 lbs 11/12/16 10:18 Creatinine Clearance 5 11/12/16 10:18 Urine Sodium 36 mEq/L 09/16/16 19:19 Urine Total Protein 16 mg/dL (5-11.8) H 09/16/16 19:19 Fluid Type Pleural 01/13/17 12:10 Fluid Color Yellow 01/13/17 12:10 Fluid Appearance Hazy 01/13/17 12:10 Fluid WBC 182 /mm3 01/13/17 12:10 Fluid RBC 41 /mm3 01/13/17 12:10 Fluid Seg Neutrophils 85.0 % 01/13/17 12:10 Fluid Lymphocytes 8.0 % 01/13/17 12:10 Fluid Reactive Lymphs 0 % 01/13/17 12:10 Fluid Monocytes 6.0 % 01/13/17 12:10 Fluid Eosinophils 1.0 % 01/13/17 12:10 Fluid Basophils 0 % 01/13/17 12:10 Fluid Total Protein 3.0 (15.0-45.0) L 01/13/17 12:10 Fluid LDH 1322 01/13/17 12:10 Fluid Comment Diff performed 01/13/17 12:10 Vancomycin Trough 2.3 ug/mL (5.0-20.0) L 09/21/16 13:00 Random Vancomycin 16.5 ug/mL (0-40.0) 11/28/16 09:45 Urine Opiates Screen Presumptive negative 09/03/16 15:11 Urine Methadone Screen Presumptive positive 09/03/16 15:11 Ur Barbiturates Screen Presumptive positive 09/03/16 15:11 Ur Phencyclidine Scrn Presumptive negative 09/03/16 15:11 Ur Amphetamines Screen Presumptive negative 09/03/16 15:11 U Benzodiazepines Scrn Presumptive negative 09/03/16 15:11 Urine Cocaine Screen Presumptive negative 09/03/16 15:11 U Marijuana (THC) Screen Presumptive positive 09/03/16 15:11 Drugs of Abuse Note Disclamer 09/03/16 15:11 Rheumatoid Factor 24 IU/ml (0-13) H 09/08/16 11:48 SAHIL Screen Negative (Negative) 09/07/16 09:20 Proteinase 3 (PR3) Ab <1.0 AI (<1.0) 09/07/16 09:20 Myeloperoxidase Ab <1.0 AI (<1.0) 09/07/16 09:20 Sjogren's Antibody <1.0 AI (<1.0) 09/08/16 15:35 Scl-70 Scleroderma Ab <1.0 AI (<1.0) 09/08/16 15:35 Centromere B Antibody <1.0 AI (<1.0) 09/08/16 12:02 Heparin-induced Plt Ab Negative (Negative) 09/29/16 13:35 UF Heparin High Dose 11 % Release 09/29/16 13:35 SUDHIR UFH Low Dose 0.1 6 % Release 09/29/16 13:35 SUDHIR UFH Low Dose 0.5 8 % Release 09/29/16 13:35 Cardiolipid IgG Ab <14 GPL (<=14) 09/12/16 09:59 Cardiolipid IgA Ab <11 APL (<=11) 09/12/16 09:59 Cardiolipid IgM Ab <12 MPL (<=12) 09/12/16 09:59 Complement C3 148 mg/dL (90-180) 09/07/16 09:20 Complement C4 58 mg/dL (16-47) H 09/07/16 09:20 RPR Nonreactive (Nonreactive) 09/08/16 11:48 Hepatitis A IgM Ab Non-reactive (NonReactive) 09/24/16 14:40 Hep Bs Antigen Non-reactive (Negative) 09/24/16 14:40 Hep B Core IgM Ab Non-reactive (NonReactive) 09/24/16 14:40 Hepatitis C Antibody Non-reactive (NonReactive) 09/24/16 14:40 HIV 1&2 Antibody Rapid Non react (Non React) 09/08/16 11:48 HIV P24 Antigen Non react (Non React) 09/08/16 11:48 Miscellaneous Test Flexitest 1 H 01/09/17 18:45 Blood Type A POSITIVE 02/12/17 10:25 Antibody Screen Negative 02/12/17 10:25 DELORIS Antibody Screen Negative 11/24/16 11:20 Crossmatch See Detail 02/12/17 10:25
--- NOTE | 2017-02-24 17:52 | Progress Note ---
Assessment and Plan Patient is 46-year-old woman with a history of hypertension, diabetes mellitus, asthma, hyperlipidemia, chronic kidney disease and anxiety, who was brought in by family because she couldn't get her words out, her face was also twisted, she was admitted for acute CVA and accelerated hypertension, she had a hx of poor adherence with her medications, and uncontrolled hypertension. Patient's SBP on admission was noted be greater than 260. TPA was started but this it was discontinued after 5 minutes because her blood pressure became uncontrolled. The TPA was not initiated again because the patient was outside the TPA window. Patient has had a prolonged hospital stay complicated with recurrent severe sepsis. Patient with most recent event also status post cardiac arrest on 11/21/16 , with CPR and ROSC. Acute on chronic Hypoxemic Respiratory Failure Sepsis -recurrent s/p tracheostomy Hypertension Atrial Fibrillation with RVR Acute encephalopathy s/p CVA Oropharyngeal dysphagia Enterococcal bacteremia Sacral Decubitus Ulcer- unstageable s/p debridement Anemia Obesity JUANITA now on hemodialysis Enteric Fistula - VAP bundle addressed - continue NGT to LIS - continue wound care/wound vac per WCT - Vasopressor if MAP falls < 65mmHg - keep on with daily PSV trials and / or T-piece as tolerated - continue TPN administration (continue TPN; NPO except for meds) - continue airway clearance and secretion management - continue to wean FiO2 for sats > 94% - continue to monitor hemodynamics closely - continue HD/UF per nephrology - continue to follow electrolytes and correct as necessary - continue GI & VTE prophylaxis -transfuse 1 unit PRBC as needed to keep HgH>7g/dL .....she remains critically ill on life sustaining interventions including MVS and at risk for further deterioration including ...fdc prognosis remains poor - Patient Problems (1) Acute respiratory failure with hypoxia Current Visit: Yes Status: Acute (2) Acute blood loss anemia Current Visit: Yes Status: Resolved (3) Acute CVA (cerebrovascular accident) Current Visit: Yes Status: Acute (4) Chronic renal insufficiency Current Visit: Yes Status: Acute (5) Uncontrolled hypertension Current Visit: Yes Status: Acute (6) Leukocytosis (leucocytosis) Current Visit: Yes Status: Acute Qualifiers: Leukocytosis type: leukemoid reaction Qualified Code(s): D72.823 - Leukemoid reaction (7) Dislodged gastrostomy tube Current Visit: Yes Status: Acute (8) Fungemia Current Visit: Yes Status: Resolved (9) Cardiopulmonary arrest with successful resuscitation Current Visit: Yes Status: Acute Subjective Date of service: 02/24/17 Principal diagnosis: Acute resp failure on MVS; S/P Acute CVA; Acute Encephalopathy; JUANITA Interval history: Patient is seen today for: Acute resp failure on MVS; S/P Acute CVA; Acute Encephalopathy; JUANITA Seen and examined at bedside; 24hour events reviewed; nursing and respiratory care staff consulted; no adverse overnight events reported to me; she remains critically ill Patient was made DNR on 02/12/2017 by family, see hospitalist documentation. No new events Vitals, labs, medications, chart reviewed. Discussed with RT and RN Daily SBTs as tolerated. Discussed interdisciplinary rounds Objective - Exam Narrative Exam: GEN: Ill appearing, trach, staring into space,, non purposeful movement NECK: SUPPLE, trach in place, ngt in place and to suction. CVS:Irregular Irregular with LUNGS/CHEST: NORMAL CHEST EXPANSION B, GOOD AIR ENTRY B, tachypnea ABD: SOFT, no grimise on abdominal palpation, Ostomy bags at two side by side fistula site. GBS, NO REBOUND OR GUARDING, peg tube in place EXT/SKIN: NO SIGNIFICANT EDEMA BUT WITH UNSTAGEABLE SACRAL DECUB, wound vac in place MSK: +spontaneous non purposeful movement NEURO: on a ventilator and unresponsive Vital Signs - 12hr 02/24/17 02/24/17 02/24/17 06:00 07:00 08:00 Temperature 99.8 F H Pulse Rate 123 H 120 H 125 H Pulse Rate [ 132 H Throughout] Respiratory 32 H 25 H 24 Rate Respiratory 28 H Rate [ Throughout] Blood Pressure 162/97 141/87 159/100 O2 Sat by Pulse 79 L 87 100 Oximetry O2 Sat by Pulse Oximetry [ Assessment] 02/24/17 02/24/17 02/24/17 08:10 09:00 10:00 Temperature Pulse Rate 121 H 120 H Pulse Rate [ 133 H Throughout] Respiratory 20 21 Rate Respiratory 28 H Rate [ Throughout] Blood Pressure 151/96 161/95 O2 Sat by Pulse 99 99 Oximetry O2 Sat by Pulse Oximetry [ Assessment] 02/24/17 02/24/17 02/24/17 11:00 12:00 12:28 Temperature 98.2 F Pulse Rate 127 H 118 H 113 H Pulse Rate [ Throughout] Respiratory 19 21 Rate Respiratory Rate [ Throughout] Blood Pressure 136/92 123/70 113/83 O2 Sat by Pulse 99 95 100 Oximetry O2 Sat by Pulse Oximetry [ Assessment] 02/24/17 02/24/17 02/24/17 12:50 13:00 13:02 Temperature Pulse Rate 111 H Pulse Rate [ 114 H 111 H Throughout] Respiratory 27 H Rate Respiratory 34 H 25 H Rate [ Throughout] Blood Pressure 129/82 O2 Sat by Pulse 100 Oximetry O2 Sat by Pulse Oximetry [ Assessment] 02/24/17 02/24/17 15:59 16:00 Temperature 99.1 F Pulse Rate 112 H Pulse Rate [ Throughout] Respiratory 29 H Rate Respiratory Rate [ Throughout] Blood Pressure 140/94 O2 Sat by Pulse 100 Oximetry O2 Sat by Pulse 98 Oximetry [ Assessment] Constitutional: appears uncomfortable, other (not tracking) Eyes: non-icteric, other (tracheostomy tube in midline of neck) ENT: oropharynx moist, oropharyngeal exudate pre, other (midline tracheostomy tube) Neck: supple, no lymphadenopathy, no JVD, other (no thyromegaly) Effort: mildly labored Ascultation: Bilateral: clear, diminished breath sounds, rales, rhonchi (and referred upper airway sounds) Percussion: Right: dull (base), Bilateral: not dull Cardiovascular: regular rate and rhythm, other (no rubs / murmurs) Gastrointestinal: hypoactive bowel sounds, soft, non-tender, non-distended, other (RLQ & LUQ stomas with colostomy bags) Integumentary: decubitus ulcer (sacral; stage 4 s/p surgical debridement), other (no rash; no cellulitis; poor turgor) Extremities: no cyanosis, pulses normal, no ischemia or petechiae, edema (1+ bilaterally) Neurologic: pupils equal and round, unable to assess, other (encephalopathic) Psychiatric: other (unable to assess) CBC and BMP: 02/24/17 10:05 02/25/17 05:00 ABG, PT/INR, D-dimer: ABG POC ABG pH 7.436 (7.35-7.45) 01/20/17 12:17 ABG pH 7.450 pH Units (7.350-7.450) 12/05/16 Unknown POC ABG pCO2 35.3 (35-45) 01/20/17 12:17 ABG pCO2 29.6 mm Hg 12/05/16 Unknown POC ABG pO2 70 (80-105) L 01/20/17 12:17 ABG pO2 75.2 mm Hg (80.0-90.0) L 12/05/16 Unknown POC ABG HCO3 23.8 01/20/17 12:17 POC ABG Total CO2 25 01/20/17 12:17 POC ABG O2 Sat 94 01/20/17 12:17 ABG O2 Saturation 96.8 % (95.0-99.0) 12/05/16 Unknown PT/INR, D-dimer PT 15.4 Sec. (12.2-14.9) H 01/13/17 15:50 INR 1.16 (0.87-1.13) H 01/13/17 15:50 Abnormal lab findings: Abnormal Labs 09/03/16 09/03/16 09/03/16 00:03 00:10 00:10 WBC 13.9 H RBC 5.95 H Hgb Hct 44.0 H MCV 74 L MCH 22 L MCHC RDW 17.5 H Plt Count Lymph % (Auto) [place] % (Auto) Lymph # [place] # Baso # Seg Neutrophils % Seg Neuts % (Manual) Lymphocytes % (Manual) 54.0 H Monocytes % (Manual) Eosinophils % (Manual) Basophils % (Manual) Nucleated RBC % Seg Neutrophils # Seg Neutrophils # Man Lymphocytes # (Manual) 7.5 H Monocytes # (Manual) Eosinophils # (Manual) Basophils # (Manual) PT INR Fibrinogen dRVVT Confirm Interp Factor V Activity POC ABG pH POC ABG pCO2 POC ABG pO2 ABG pO2 ABG HCO3 ABG Base Excess ABG Hemoglobin Oxyhemoglobin Sodium Potassium 2.8 L* Chloride Carbon Dioxide 21 L BUN Creatinine 1.7 H Glucose 159 H POC Glucose 177 H Lactic Acid Calcium Ionized Calcium Phosphorus Magnesium Direct Bilirubin AST ALT Alkaline Phosphatase Lactate Dehydrogenase Troponin T C-Reactive Protein Total Protein Albumin Prealbumin Triglycerides Cholesterol LDL Cholesterol Direct HDL Cholesterol 25-OH Vitamin D Total PTH Intact Urine pH Urine WBC (Auto) Urine Creatinine Urine Total Protein Fluid Total Protein Vancomycin Trough Rheumatoid Factor Complement C4 Miscellaneous Test Crossmatch 09/03/16 09/03/16 09/03/16 12:12 15:07 16:20 WBC RBC Hgb Hct MCV MCH MCHC RDW Plt Count Lymph % (Auto) [place] % (Auto) Lymph # [place] # Baso # Seg Neutrophils % Seg Neuts % (Manual) Lymphocytes % (Manual) Monocytes % (Manual) Eosinophils % (Manual) Basophils % (Manual) Nucleated RBC % Seg Neutrophils # Seg Neutrophils # Man Lymphocytes # (Manual) Monocytes # (Manual) Eosinophils # (Manual) Basophils # (Manual) PT INR Fibrinogen dRVVT Confirm Interp Factor V Activity POC ABG pH 7.452 H POC ABG pCO2 POC ABG pO2 ABG pO2 ABG HCO3 ABG Base Excess ABG Hemoglobin Oxyhemoglobin Sodium Potassium Chloride Carbon Dioxide BUN Creatinine Glucose POC Glucose 178 H Lactic Acid Calcium Ionized Calcium Phosphorus 2.20 L Magnesium 1.60 L Direct Bilirubin AST ALT Alkaline Phosphatase Lactate Dehydrogenase Troponin T C-Reactive Protein Total Protein Albumin Prealbumin Triglycerides Cholesterol LDL Cholesterol Direct HDL Cholesterol 25-OH Vitamin D Total PTH Intact Urine pH Urine WBC (Auto) Urine Creatinine Urine Total Protein Fluid Total Protein Vancomycin Trough Rheumatoid Factor Complement C4 Miscellaneous Test Crossmatch 09/03/16 09/03/16 09/03/16 17:57 17:58 23:50 WBC RBC Hgb Hct MCV MCH MCHC RDW Plt Count Lymph % (Auto) [place] % (Auto) Lymph # [place] # Baso # Seg Neutrophils % Seg Neuts % (Manual) Lymphocytes % (Manual) Monocytes % (Manual) Eosinophils % (Manual) Basophils % (Manual) Nucleated RBC % Seg Neutrophils # Seg Neutrophils # Man Lymphocytes # (Manual) Monocytes # (Manual) Eosinophils # (Manual) Basophils # (Manual) PT INR Fibrinogen dRVVT Confirm Interp Factor V Activity POC ABG pH POC ABG pCO2 POC ABG pO2 ABG pO2 ABG HCO3 ABG Base Excess ABG Hemoglobin Oxyhemoglobin Sodium Potassium Chloride Carbon Dioxide BUN Creatinine Glucose POC Glucose 162 H 145 H Lactic Acid Calcium Ionized Calcium Phosphorus 2.30 L Magnesium Direct Bilirubin AST ALT Alkaline Phosphatase Lactate Dehydrogenase Troponin T C-Reactive Protein Total Protein Albumin Prealbumin Triglycerides Cholesterol LDL Cholesterol Direct HDL Cholesterol 25-OH Vitamin D Total PTH Intact Urine pH Urine WBC (Auto) Urine Creatinine Urine Total Protein Fluid Total Protein Vancomycin Trough Rheumatoid Factor Complement C4 Miscellaneous Test Crossmatch 09/04/16 09/04/16 09/04/16 03:31 03:31 05:42 WBC RBC Hgb 9.7 L D Hct MCV 72 L MCH 23 L MCHC RDW 17.5 H Plt Count Lymph % (Auto) 11.[address] [place] % (Auto) Lymph # [place] # Baso # Seg Neutrophils % 84.3 H Seg Neuts % (Manual) Lymphocytes % (Manual) Monocytes % (Manual) Eosinophils % (Manual) Basophils % (Manual) Nucleated RBC % Seg Neutrophils # 8.9 H Seg Neutrophils # Man Lymphocytes # (Manual) Monocytes # (Manual) Eosinophils # (Manual) Basophils # (Manual) PT INR Fibrinogen dRVVT Confirm Interp Factor V Activity POC ABG pH POC ABG pCO2 POC ABG pO2 ABG pO2 ABG HCO3 ABG Base Excess ABG Hemoglobin Oxyhemoglobin Sodium 135 L Potassium 2.9 L* Chloride 97.2 L Carbon Dioxide 19 L BUN Creatinine 1.7 H Glucose 170 H POC Glucose 152 H Lactic Acid Calcium Ionized Calcium Phosphorus Magnesium Direct Bilirubin AST ALT Alkaline Phosphatase Lactate Dehydrogenase Troponin T C-Reactive Protein Total Protein Albumin Prealbumin Triglycerides 160 H Cholesterol LDL Cholesterol Direct HDL Cholesterol 31 L 25-OH Vitamin D Total PTH Intact Urine pH Urine WBC (Auto) Urine Creatinine Urine Total Protein Fluid Total Protein Vancomycin Trough Rheumatoid Factor Complement C4 Miscellaneous Test Crossmatch 09/04/16 09/04/16 09/04/16 11:34 17:46 23:29 WBC RBC Hgb Hct MCV MCH MCHC RDW Plt Count Lymph % (Auto) [place] % (Auto) Lymph # [place] # Baso # Seg Neutrophils % Seg Neuts % (Manual) Lymphocytes % (Manual) Monocytes % (Manual) Eosinophils % (Manual) Basophils % (Manual) Nucleated RBC % Seg Neutrophils # Seg Neutrophils # Man Lymphocytes # (Manual) Monocytes # (Manual) Eosinophils # (Manual) Basophils # (Manual) PT INR Fibrinogen dRVVT Confirm Interp Factor V Activity POC ABG pH POC ABG pCO2 POC ABG pO2 ABG pO2 ABG HCO3 ABG Base Excess ABG Hemoglobin Oxyhemoglobin Sodium Potassium Chloride Carbon Dioxide BUN Creatinine Glucose POC Glucose 165 H 210 H 139 H Lactic Acid Calcium Ionized Calcium Phosphorus Magnesium Direct Bilirubin AST ALT Alkaline Phosphatase Lactate Dehydrogenase Troponin T C-Reactive Protein Total Protein Albumin Prealbumin Triglycerides Cholesterol LDL Cholesterol Direct HDL Cholesterol 25-OH Vitamin D Total PTH Intact Urine pH Urine WBC (Auto) Urine Creatinine Urine Total Protein Fluid Total Protein Vancomycin Trough Rheumatoid Factor Complement C4 Miscellaneous Test Crossmatch 09/05/16 09/05/16 09/05/16 04:05 04:05 05:38 WBC RBC Hgb Hct MCV 76 L D MCH 23 L MCHC RDW 17.8 H Plt Count Lymph % (Auto) [place] % (Auto) Lymph # [place] # Baso # Seg Neutrophils % Seg Neuts % (Manual) Lymphocytes % (Manual) Monocytes % (Manual) Eosinophils % (Manual) Basophils % (Manual) Nucleated RBC % Seg Neutrophils # Seg Neutrophils # Man Lymphocytes # (Manual) Monocytes # (Manual) Eosinophils # (Manual) Basophils # (Manual) PT INR Fibrinogen dRVVT Confirm Interp Factor V Activity POC ABG pH POC ABG pCO2 POC ABG pO2 ABG pO2 ABG HCO3 ABG Base Excess ABG Hemoglobin Oxyhemoglobin Sodium 134 L Potassium Chloride Carbon Dioxide 18 L BUN Creatinine 1.8 H Glucose 192 H POC Glucose 175 H Lactic Acid Calcium Ionized Calcium Phosphorus Magnesium Direct Bilirubin AST ALT Alkaline Phosphatase Lactate Dehydrogenase Troponin T C-Reactive Protein Total Protein Albumin Prealbumin Triglycerides Cholesterol LDL Cholesterol Direct HDL Cholesterol 25-OH Vitamin D Total PTH Intact Urine pH Urine WBC (Auto) Urine Creatinine Urine Total Protein Fluid Total Protein Vancomycin Trough Rheumatoid Factor Complement C4 Miscellaneous Test Crossmatch 09/05/16 09/05/16 09/05/16 11:38 17:48 23:22 WBC RBC Hgb Hct MCV MCH MCHC RDW Plt Count Lymph % (Auto) [place] % (Auto) Lymph # [place] # Baso # Seg Neutrophils % Seg Neuts % (Manual) Lymphocytes % (Manual) Monocytes % (Manual) Eosinophils % (Manual) Basophils % (Manual) Nucleated RBC % Seg Neutrophils # Seg Neutrophils # Man Lymphocytes # (Manual) Monocytes # (Manual) Eosinophils # (Manual) Basophils # (Manual) PT INR Fibrinogen dRVVT Confirm Interp Factor V Activity POC ABG pH POC ABG pCO2 POC ABG pO2 ABG pO2 ABG HCO3 ABG Base Excess ABG Hemoglobin Oxyhemoglobin Sodium Potassium Chloride Carbon Dioxide BUN Creatinine Glucose POC Glucose 164 H 186 H 195 H Lactic Acid Calcium Ionized Calcium Phosphorus Magnesium Direct Bilirubin AST ALT Alkaline Phosphatase Lactate Dehydrogenase Troponin T C-Reactive Protein Total Protein Albumin Prealbumin Triglycerides Cholesterol LDL Cholesterol Direct HDL Cholesterol 25-OH Vitamin D Total PTH Intact Urine pH Urine WBC (Auto) Urine Creatinine Urine Total Protein Fluid Total Protein Vancomycin Trough Rheumatoid Factor Complement C4 Miscellaneous Test Crossmatch 09/06/16 09/06/16 09/06/16 04:12 05:59 07:32 WBC RBC Hgb Hct MCV MCH MCHC RDW Plt Count Lymph % (Auto) [place] % (Auto) Lymph # [place] # Baso # Seg Neutrophils % Seg Neuts % (Manual) Lymphocytes % (Manual) Monocytes % (Manual) Eosinophils % (Manual) Basophils % (Manual) Nucleated RBC % Seg Neutrophils # Seg Neutrophils # Man Lymphocytes # (Manual) Monocytes # (Manual) Eosinophils # (Manual) Basophils # (Manual) PT INR Fibrinogen dRVVT Confirm Interp Factor V Activity POC ABG pH 7.514 H POC ABG pCO2 29.1 L POC ABG pO2 72 L ABG pO2 ABG HCO3 ABG Base Excess ABG Hemoglobin Oxyhemoglobin Sodium 133 L Potassium 3.4 L Chloride 94.9 L Carbon Dioxide 19 L BUN 30 H Creatinine 2.1 H Glucose 139 H POC Glucose 146 H Lactic Acid Calcium Ionized Calcium Phosphorus Magnesium Direct Bilirubin AST ALT Alkaline Phosphatase Lactate Dehydrogenase Troponin T C-Reactive Protein Total Protein Albumin Prealbumin Triglycerides Cholesterol LDL Cholesterol Direct HDL Cholesterol 25-OH Vitamin D Total PTH Intact Urine pH Urine WBC (Auto) Urine Creatinine Urine Total Protein Fluid Total Protein Vancomycin Trough Rheumatoid Factor Complement C4 Miscellaneous Test Crossmatch 09/06/16 09/06/16 09/06/16 11:57 17:58 19:02 WBC RBC Hgb Hct MCV MCH MCHC RDW Plt Count Lymph % (Auto) [place] % (Auto) Lymph # [place] # Baso # Seg Neutrophils % Seg Neuts % (Manual) Lymphocytes % (Manual) Monocytes % (Manual) Eosinophils % (Manual) Basophils % (Manual) Nucleated RBC % Seg Neutrophils # Seg Neutrophils # Man Lymphocytes # (Manual) Monocytes # (Manual) Eosinophils # (Manual) Basophils # (Manual) PT INR Fibrinogen dRVVT Confirm Interp Factor V Activity POC ABG pH 7.465 H POC ABG pCO2 32.0 L POC ABG pO2 ABG pO2 ABG HCO3 ABG Base Excess ABG Hemoglobin Oxyhemoglobin Sodium Potassium Chloride Carbon Dioxide BUN Creatinine Glucose POC Glucose 165 H 160 H Lactic Acid Calcium Ionized Calcium Phosphorus Magnesium Direct Bilirubin AST ALT Alkaline Phosphatase Lactate Dehydrogenase Troponin T C-Reactive Protein Total Protein Albumin Prealbumin Triglycerides Cholesterol LDL Cholesterol Direct HDL Cholesterol 25-OH Vitamin D Total PTH Intact Urine pH Urine WBC (Auto) Urine Creatinine Urine Total Protein Fluid Total Protein Vancomycin Trough Rheumatoid Factor Complement C4 Miscellaneous Test Crossmatch 09/06/16 09/07/16 09/07/16 23:45 02:47 02:47 WBC RBC Hgb Hct MCV MCH MCHC RDW Plt Count Lymph % (Auto) [place] % (Auto) Lymph # [place] # Baso # Seg Neutrophils % Seg Neuts % (Manual) Lymphocytes % (Manual) Monocytes % (Manual) Eosinophils % (Manual) Basophils % (Manual) Nucleated RBC % Seg Neutrophils # Seg Neutrophils # Man Lymphocytes # (Manual) Monocytes # (Manual) Eosinophils # (Manual) Basophils # (Manual) PT INR Fibrinogen dRVVT Confirm Interp Factor V Activity POC ABG pH POC ABG pCO2 POC ABG pO2 ABG pO2 ABG HCO3 ABG Base Excess ABG Hemoglobin Oxyhemoglobin Sodium Potassium Chloride Carbon Dioxide BUN Creatinine Glucose POC Glucose 204 H Lactic Acid Calcium Ionized Calcium Phosphorus Magnesium Direct Bilirubin AST ALT Alkaline Phosphatase Lactate Dehydrogenase Troponin T C-Reactive Protein Total Protein Albumin Prealbumin Triglycerides Cholesterol LDL Cholesterol Direct HDL Cholesterol 25-OH Vitamin D Total PTH Intact Urine pH Urine WBC (Auto) 68.0 H Urine Creatinine 106.1 H Urine Total Protein Fluid Total Protein Vancomycin Trough Rheumatoid Factor Complement C4 Miscellaneous Test Crossmatch 09/07/16 09/07/16 09/07/16 04:50 06:19 06:39 WBC RBC Hgb Hct MCV MCH MCHC RDW Plt Count Lymph % (Auto) [place] % (Auto) Lymph # [place] # Baso # Seg Neutrophils % Seg Neuts % (Manual) Lymphocytes % (Manual) Monocytes % (Manual) Eosinophils % (Manual) Basophils % (Manual) Nucleated RBC % Seg Neutrophils # Seg Neutrophils # Man Lymphocytes # (Manual) Monocytes # (Manual) Eosinophils # (Manual) Basophils # (Manual) PT INR Fibrinogen dRVVT Confirm Interp Factor V Activity POC ABG pH 7.457 H POC ABG pCO2 32.1 L POC ABG pO2 76 L ABG pO2 ABG HCO3 ABG Base Excess ABG Hemoglobin Oxyhemoglobin Sodium 132 L Potassium Chloride 94.7 L Carbon Dioxide BUN 53 H Creatinine 2.9 H Glucose 151 H POC Glucose 149 H Lactic Acid Calcium Ionized Calcium Phosphorus Magnesium Direct Bilirubin AST ALT Alkaline Phosphatase Lactate Dehydrogenase Troponin T C-Reactive Protein Total Protein Albumin Prealbumin Triglycerides Cholesterol LDL Cholesterol Direct HDL Cholesterol 25-OH Vitamin D Total PTH Intact Urine pH Urine WBC (Auto) Urine Creatinine Urine Total Protein Fluid Total Protein Vancomycin Trough Rheumatoid Factor Complement C4 Miscellaneous Test Crossmatch 09/07/16 09/07/16 09/07/16 09:20 11:43 11:43 WBC 19.4 H RBC Hgb 8.3 L Hct 26.4 L D MCV 72 L D MCH 22 L MCHC RDW 17.9 H Plt Count Lymph % (Auto) 8.[address] [place] % (Auto) Lymph # [place] # 1.0 H Baso # Seg Neutrophils % 85.8 H Seg Neuts % (Manual) Lymphocytes % (Manual) Monocytes % (Manual) Eosinophils % (Manual) Basophils % (Manual) Nucleated RBC % Seg Neutrophils # 16.6 H Seg Neutrophils # Man Lymphocytes # (Manual) Monocytes # (Manual) Eosinophils # (Manual) Basophils # (Manual) PT INR Fibrinogen dRVVT Confirm Interp Factor V Activity POC ABG pH POC ABG pCO2 POC ABG pO2 ABG pO2 ABG HCO3 ABG Base Excess ABG Hemoglobin Oxyhemoglobin Sodium 134 L Potassium Chloride 97.2 L Carbon Dioxide 20 L BUN 58 H Creatinine 2.9 H Glucose 147 H POC Glucose Lactic Acid Calcium Ionized Calcium Phosphorus 2.40 L Magnesium 2.40 H Direct Bilirubin AST ALT Alkaline Phosphatase Lactate Dehydrogenase Troponin T C-Reactive Protein Total Protein 5.8 L Albumin 2.2 L Prealbumin Triglycerides Cholesterol LDL Cholesterol Direct HDL Cholesterol 25-OH Vitamin D Total PTH Intact Urine pH Urine WBC (Auto) Urine Creatinine Urine Total Protein Fluid Total Protein Vancomycin Trough Rheumatoid Factor Complement C4 58 H Miscellaneous Test Crossmatch 09/07/16 09/07/16 09/07/16 11:50 16:00 17:31 WBC RBC Hgb Hct MCV MCH MCHC RDW Plt Count Lymph % (Auto) [place] % (Auto) Lymph # [place] # Baso # Seg Neutrophils % Seg Neuts % (Manual) Lymphocytes % (Manual) Monocytes % (Manual) Eosinophils % (Manual) Basophils % (Manual) Nucleated RBC % Seg Neutrophils # Seg Neutrophils # Man Lymphocytes # (Manual) Monocytes # (Manual) Eosinophils # (Manual) Basophils # (Manual) PT INR Fibrinogen dRVVT Confirm Interp Factor V Activity POC ABG pH POC ABG pCO2 POC ABG pO2 158 H ABG pO2 ABG HCO3 ABG Base Excess ABG Hemoglobin Oxyhemoglobin Sodium Potassium Chloride Carbon Dioxide BUN Creatinine Glucose POC Glucose 175 H Lactic Acid Calcium Ionized Calcium Phosphorus Magnesium Direct Bilirubin AST ALT Alkaline Phosphatase Lactate Dehydrogenase Troponin T C-Reactive Protein Total Protein Albumin Prealbumin Triglycerides Cholesterol LDL Cholesterol Direct HDL Cholesterol 25-OH Vitamin D Total PTH Intact Urine pH Urine WBC (Auto) Urine Creatinine 66.3 H Urine Total Protein Fluid Total Protein Vancomycin Trough Rheumatoid Factor Complement C4 Miscellaneous Test Crossmatch 09/07/16 09/08/16 09/08/16 23:50 05:46 06:18 WBC 17.8 H RBC 3.58 L Hgb 8.1 L Hct 25.5 L MCV 71 L MCH 23 L MCHC RDW 18.4 H Plt Count Lymph % (Auto) [place] % (Auto) Lymph # [place] # Baso # Seg Neutrophils % Seg Neuts % (Manual) 92.0 H Lymphocytes % (Manual) 6.0 L Monocytes % (Manual) Eosinophils % (Manual) Basophils % (Manual) Nucleated RBC % Seg Neutrophils # Seg Neutrophils # Man 16.4 H Lymphocytes # (Manual) 1.1 L Monocytes # (Manual) Eosinophils # (Manual) Basophils # (Manual) PT INR Fibrinogen dRVVT Confirm Interp Factor V Activity POC ABG pH POC ABG pCO2 34.3 L POC ABG pO2 71 L ABG pO2 ABG HCO3 ABG Base Excess ABG Hemoglobin Oxyhemoglobin Sodium Potassium Chloride Carbon Dioxide BUN Creatinine Glucose POC Glucose 216 H Lactic Acid Calcium Ionized Calcium Phosphorus Magnesium Direct Bilirubin AST ALT Alkaline Phosphatase Lactate Dehydrogenase Troponin T C-Reactive Protein Total Protein Albumin Prealbumin Triglycerides Cholesterol LDL Cholesterol Direct HDL Cholesterol 25-OH Vitamin D Total PTH Intact Urine pH Urine WBC (Auto) Urine Creatinine Urine Total Protein Fluid Total Protein Vancomycin Trough Rheumatoid Factor Complement C4 Miscellaneous Test Crossmatch 09/08/16 09/08/16 09/08/16 06:18 06:51 10:55 WBC RBC Hgb Hct MCV MCH MCHC RDW Plt Count Lymph % (Auto) [place] % (Auto) Lymph # [place] # Baso # Seg Neutrophils % Seg Neuts % (Manual) Lymphocytes % (Manual) Monocytes % (Manual) Eosinophils % (Manual) Basophils % (Manual) Nucleated RBC % Seg Neutrophils # Seg Neutrophils # Man Lymphocytes # (Manual) Monocytes # (Manual) Eosinophils # (Manual) Basophils # (Manual) PT INR Fibrinogen dRVVT Confirm Interp Factor V Activity POC ABG pH POC ABG pCO2 POC ABG pO2 ABG pO2 ABG HCO3 ABG Base Excess ABG Hemoglobin Oxyhemoglobin Sodium 133 L Potassium Chloride 96.9 L Carbon Dioxide 20 L BUN 63 H Creatinine 2.7 H Glucose 195 H POC Glucose 204 H 169 H Lactic Acid Calcium Ionized Calcium Phosphorus Magnesium Direct Bilirubin AST ALT Alkaline Phosphatase Lactate Dehydrogenase Troponin T C-Reactive Protein Total Protein Albumin Prealbumin Triglycerides Cholesterol LDL Cholesterol Direct HDL Cholesterol 25-OH Vitamin D Total PTH Intact Urine pH Urine WBC (Auto) Urine Creatinine Urine Total Protein Fluid Total Protein Vancomycin Trough Rheumatoid Factor Complement C4 Miscellaneous Test Crossmatch 09/08/16 09/08/16 09/08/16 11:48 11:48 11:48 WBC RBC Hgb Hct MCV MCH MCHC RDW Plt Count Lymph % (Auto) [place] % (Auto) Lymph # [place] # Baso # Seg Neutrophils % Seg Neuts % (Manual) Lymphocytes % (Manual) Monocytes % (Manual) Eosinophils % (Manual) Basophils % (Manual) Nucleated RBC % Seg Neutrophils # Seg Neutrophils # Man Lymphocytes # (Manual) Monocytes # (Manual) Eosinophils # (Manual) Basophils # (Manual) PT INR Fibrinogen 750 H dRVVT Confirm Interp Factor V Activity POC ABG pH POC ABG pCO2 POC ABG pO2 ABG pO2 ABG HCO3 ABG Base Excess ABG Hemoglobin Oxyhemoglobin Sodium Potassium Chloride Carbon Dioxide BUN Creatinine Glucose POC Glucose Lactic Acid Calcium Ionized Calcium Phosphorus Magnesium Direct Bilirubin AST ALT Alkaline Phosphatase Lactate Dehydrogenase Troponin T C-Reactive Protein 15.70 H Total Protein Albumin Prealbumin Triglycerides Cholesterol LDL Cholesterol Direct HDL Cholesterol 25-OH Vitamin D Total PTH Intact Urine pH Urine WBC (Auto) Urine Creatinine Urine Total Protein Fluid Total Protein Vancomycin Trough Rheumatoid Factor 24 H Complement C4 Miscellaneous Test Crossmatch 09/08/16 09/08/16 09/09/16 15:35 18:25 00:24 WBC RBC Hgb Hct MCV MCH MCHC RDW Plt Count Lymph % (Auto) [place] % (Auto) Lymph # [place] # Baso # Seg Neutrophils % Seg Neuts % (Manual) Lymphocytes % (Manual) Monocytes % (Manual) Eosinophils % (Manual) Basophils % (Manual) Nucleated RBC % Seg Neutrophils # Seg Neutrophils # Man Lymphocytes # (Manual) Monocytes # (Manual) Eosinophils # (Manual) Basophils # (Manual) PT INR Fibrinogen dRVVT Confirm Interp Factor V Activity 182 H POC ABG pH POC ABG pCO2 POC ABG pO2 ABG pO2 ABG HCO3 ABG Base Excess ABG Hemoglobin Oxyhemoglobin Sodium Potassium Chloride Carbon Dioxide BUN Creatinine Glucose POC Glucose 184 H 216 H Lactic Acid Calcium Ionized Calcium Phosphorus Magnesium Direct Bilirubin AST ALT Alkaline Phosphatase Lactate Dehydrogenase Troponin T C-Reactive Protein Total Protein Albumin Prealbumin Triglycerides Cholesterol LDL Cholesterol Direct HDL Cholesterol 25-OH Vitamin D Total PTH Intact Urine pH Urine WBC (Auto) Urine Creatinine Urine Total Protein Fluid Total Protein Vancomycin Trough Rheumatoid Factor Complement C4 Miscellaneous Test Crossmatch 09/09/16 09/09/16 09/09/16 03:00 03:00 04:04 WBC 27.9 H RBC Hgb 8.7 L Hct 28.1 L MCV 72 L MCH 22 L MCHC RDW 18.4 H Plt Count 485 H Lymph % (Auto) [place] % (Auto) Lymph # [place] # Baso # Seg Neutrophils % Seg Neuts % (Manual) 77.0 H Lymphocytes % (Manual) 9.0 L Monocytes % (Manual) Eosinophils % (Manual) Basophils % (Manual) Nucleated RBC % Seg Neutrophils # Seg Neutrophils # Man 21.5 H Lymphocytes # (Manual) Monocytes # (Manual) 2.0 H Eosinophils # (Manual) Basophils # (Manual) PT INR Fibrinogen dRVVT Confirm Interp Factor V Activity POC ABG pH POC ABG pCO2 POC ABG pO2 121 H ABG pO2 ABG HCO3 ABG Base Excess ABG Hemoglobin Oxyhemoglobin Sodium 135 L Potassium Chloride 96.3 L Carbon Dioxide 21 L BUN 83 H Creatinine 3.0 H Glucose 135 H POC Glucose Lactic Acid Calcium Ionized Calcium Phosphorus Magnesium Direct Bilirubin AST ALT Alkaline Phosphatase Lactate Dehydrogenase Troponin T C-Reactive Protein Total Protein Albumin Prealbumin Triglycerides Cholesterol LDL Cholesterol Direct HDL Cholesterol 25-OH Vitamin D Total PTH Intact Urine pH Urine WBC (Auto) Urine Creatinine Urine Total Protein Fluid Total Protein Vancomycin Trough Rheumatoid Factor Complement C4 Miscellaneous Test Crossmatch 09/09/16 09/09/16 09/09/16 05:41 11:55 14:13 WBC RBC Hgb Hct MCV MCH MCHC RDW Plt Count Lymph % (Auto) [place] % (Auto) Lymph # [place] # Baso # Seg Neutrophils % Seg Neuts % (Manual) Lymphocytes % (Manual) Monocytes % (Manual) Eosinophils % (Manual) Basophils % (Manual) Nucleated RBC % Seg Neutrophils # Seg Neutrophils # Man Lymphocytes # (Manual) Monocytes # (Manual) Eosinophils # (Manual) Basophils # (Manual) PT INR Fibrinogen dRVVT Confirm Interp Factor V Activity POC ABG pH POC ABG pCO2 POC ABG pO2 ABG pO2 ABG HCO3 ABG Base Excess ABG Hemoglobin Oxyhemoglobin Sodium Potassium Chloride Carbon Dioxide BUN Creatinine Glucose POC Glucose 155 H 186 H Lactic Acid Calcium Ionized Calcium Phosphorus Magnesium Direct Bilirubin AST ALT Alkaline Phosphatase Lactate Dehydrogenase Troponin T C-Reactive Protein Total Protein Albumin Prealbumin Triglycerides Cholesterol LDL Cholesterol Direct HDL Cholesterol 25-OH Vitamin D Total PTH Intact Urine pH Urine WBC (Auto) 25.0 H Urine Creatinine Urine Total Protein Fluid Total Protein Vancomycin Trough Rheumatoid Factor Complement C4 Miscellaneous Test Crossmatch 09/09/16 09/09/16 09/10/16 17:33 23:13 05:09 WBC RBC Hgb Hct MCV MCH MCHC RDW Plt Count Lymph % (Auto) [place] % (Auto) Lymph # [place] # Baso # Seg Neutrophils % Seg Neuts % (Manual) Lymphocytes % (Manual) Monocytes % (Manual) Eosinophils % (Manual) Basophils % (Manual) Nucleated RBC % Seg Neutrophils # Seg Neutrophils # Man Lymphocytes # (Manual) Monocytes # (Manual) Eosinophils # (Manual) Basophils # (Manual) PT INR Fibrinogen dRVVT Confirm Interp Factor V Activity POC ABG pH POC ABG pCO2 POC ABG pO2 74 L ABG pO2 ABG HCO3 ABG Base Excess ABG Hemoglobin Oxyhemoglobin Sodium Potassium Chloride Carbon Dioxide BUN Creatinine Glucose POC Glucose 211 H 215 H Lactic Acid Calcium Ionized Calcium Phosphorus Magnesium Direct Bilirubin AST ALT Alkaline Phosphatase Lactate Dehydrogenase Troponin T C-Reactive Protein Total Protein Albumin Prealbumin Triglycerides Cholesterol LDL Cholesterol Direct HDL Cholesterol 25-OH Vitamin D Total PTH Intact Urine pH Urine WBC (Auto) Urine Creatinine Urine Total Protein Fluid Total Protein Vancomycin Trough Rheumatoid Factor Complement C4 Miscellaneous Test Crossmatch 09/10/16 09/10/16 09/10/16 05:17 05:17 11:31 WBC 15.8 H RBC 3.25 L Hgb 7.3 L Hct 22.9 L MCV 71 L MCH 23 L MCHC RDW 18.4 H Plt Count Lymph % (Auto) [place] % (Auto) Lymph # [place] # Baso # Seg Neutrophils % Seg Neuts % (Manual) 91.0 H Lymphocytes % (Manual) 4.0 L Monocytes % (Manual) Eosinophils % (Manual) Basophils % (Manual) Nucleated RBC % Seg Neutrophils # Seg Neutrophils # Man 14.4 H Lymphocytes # (Manual) 0.6 L Monocytes # (Manual) Eosinophils # (Manual) Basophils # (Manual) PT INR Fibrinogen dRVVT Confirm Interp Factor V Activity POC ABG pH POC ABG pCO2 POC ABG pO2 ABG pO2 ABG HCO3 ABG Base Excess ABG Hemoglobin Oxyhemoglobin Sodium Potassium Chloride Carbon Dioxide 21 L BUN 93 H Creatinine 2.9 H Glucose 146 H POC Glucose 188 H Lactic Acid Calcium 8.1 L Ionized Calcium Phosphorus Magnesium Direct Bilirubin AST ALT Alkaline Phosphatase Lactate Dehydrogenase Troponin T C-Reactive Protein Total Protein Albumin Prealbumin Triglycerides Cholesterol LDL Cholesterol Direct HDL Cholesterol 25-OH Vitamin D Total PTH Intact Urine pH Urine WBC (Auto) Urine Creatinine Urine Total Protein Fluid Total Protein Vancomycin Trough Rheumatoid Factor Complement C4 Miscellaneous Test Crossmatch 09/10/16 09/10/16 09/10/16 13:17 17:20 23:32 WBC RBC Hgb Hct MCV MCH MCHC RDW Plt Count Lymph % (Auto) [place] % (Auto) Lymph # [place] # Baso # Seg Neutrophils % Seg Neuts % (Manual) Lymphocytes % (Manual) Monocytes % (Manual) Eosinophils % (Manual) Basophils % (Manual) Nucleated RBC % Seg Neutrophils # Seg Neutrophils # Man Lymphocytes # (Manual) Monocytes # (Manual) Eosinophils # (Manual) Basophils # (Manual) PT INR Fibrinogen dRVVT Confirm Interp Factor V Activity POC ABG pH POC ABG pCO2 POC ABG pO2 ABG pO2 ABG HCO3 ABG Base Excess ABG Hemoglobin Oxyhemoglobin Sodium Potassium Chloride Carbon Dioxide BUN Creatinine Glucose POC Glucose 199 H 186 H Lactic Acid Calcium Ionized Calcium Phosphorus Magnesium Direct Bilirubin AST ALT Alkaline Phosphatase Lactate Dehydrogenase Troponin T C-Reactive Protein Total Protein Albumin Prealbumin Triglycerides Cholesterol LDL Cholesterol Direct HDL Cholesterol 25-OH Vitamin D Total PTH Intact Urine pH Urine WBC (Auto) Urine Creatinine Urine Total Protein Fluid Total Protein Vancomycin Trough Rheumatoid Factor Complement C4 Miscellaneous Test Crossmatch See Detail 09/11/16 09/11/16 09/11/16 05:10 05:10 05:17 WBC 28.4 H RBC Hgb 9.2 L Hct 29.3 L D MCV 73 L MCH 23 L MCHC RDW 18.9 H Plt Count 452 H Lymph % (Auto) [place] % (Auto) Lymph # [place] # Baso # Seg Neutrophils % Seg Neuts % (Manual) 89.5 H Lymphocytes % (Manual) 2.0 L Monocytes % (Manual) Eosinophils % (Manual) Basophils % (Manual) Nucleated RBC % Seg Neutrophils # Seg Neutrophils # Man 25.4 H Lymphocytes # (Manual) 0.6 L Monocytes # (Manual) 1.3 H Eosinophils # (Manual) Basophils # (Manual) PT INR Fibrinogen dRVVT Confirm Interp Factor V Activity POC ABG pH POC ABG pCO2 POC ABG pO2 ABG pO2 ABG HCO3 ABG Base Excess ABG Hemoglobin Oxyhemoglobin Sodium 136 L Potassium Chloride Carbon Dioxide 18 L BUN 107 H Creatinine 2.6 H Glucose 187 H POC Glucose 230 H Lactic Acid Calcium 8.3 L Ionized Calcium Phosphorus Magnesium Direct Bilirubin AST ALT Alkaline Phosphatase Lactate Dehydrogenase Troponin T C-Reactive Protein Total Protein Albumin Prealbumin Triglycerides Cholesterol LDL Cholesterol Direct HDL Cholesterol 25-OH Vitamin D Total PTH Intact Urine pH Urine WBC (Auto) Urine Creatinine Urine Total Protein Fluid Total Protein Vancomycin Trough Rheumatoid Factor Complement C4 Miscellaneous Test Crossmatch 09/11/16 09/11/16 09/11/16 05:55 12:02 17:32 WBC RBC Hgb Hct MCV MCH MCHC RDW Plt Count Lymph % (Auto) [place] % (Auto) Lymph # [place] # Baso # Seg Neutrophils % Seg Neuts % (Manual) Lymphocytes % (Manual) Monocytes % (Manual) Eosinophils % (Manual) Basophils % (Manual) Nucleated RBC % Seg Neutrophils # Seg Neutrophils # Man Lymphocytes # (Manual) Monocytes # (Manual) Eosinophils # (Manual) Basophils # (Manual) PT INR Fibrinogen dRVVT Confirm Interp Factor V Activity POC ABG pH POC ABG pCO2 33.8 L POC ABG pO2 ABG pO2 ABG HCO3 ABG Base Excess ABG Hemoglobin Oxyhemoglobin Sodium Potassium Chloride Carbon Dioxide BUN Creatinine Glucose POC Glucose 191 H 239 H Lactic Acid Calcium Ionized Calcium Phosphorus Magnesium Direct Bilirubin AST ALT Alkaline Phosphatase Lactate Dehydrogenase Troponin T C-Reactive Protein Total Protein Albumin Prealbumin Triglycerides Cholesterol LDL Cholesterol Direct HDL Cholesterol 25-OH Vitamin D Total PTH Intact Urine pH Urine WBC (Auto) Urine Creatinine Urine Total Protein Fluid Total Protein Vancomycin Trough Rheumatoid Factor Complement C4 Miscellaneous Test Crossmatch 09/11/16 09/12/16 09/12/16 23:52 05:09 05:32 WBC RBC Hgb Hct MCV MCH MCHC RDW Plt Count Lymph % (Auto) [place] % (Auto) Lymph # [place] # Baso # Seg Neutrophils % Seg Neuts % (Manual) Lymphocytes % (Manual) Monocytes % (Manual) Eosinophils % (Manual) Basophils % (Manual) Nucleated RBC % Seg Neutrophils # Seg Neutrophils # Man Lymphocytes # (Manual) Monocytes # (Manual) Eosinophils # (Manual) Basophils # (Manual) PT INR Fibrinogen dRVVT Confirm Interp Factor V Activity POC ABG pH POC ABG pCO2 34.6 L POC ABG pO2 ABG pO2 ABG HCO3 ABG Base Excess ABG Hemoglobin Oxyhemoglobin Sodium Potassium Chloride Carbon Dioxide BUN Creatinine Glucose POC Glucose 265 H 184 H Lactic Acid Calcium Ionized Calcium Phosphorus Magnesium Direct Bilirubin AST ALT Alkaline Phosphatase Lactate Dehydrogenase Troponin T C-Reactive Protein Total Protein Albumin Prealbumin Triglycerides Cholesterol LDL Cholesterol Direct HDL Cholesterol 25-OH Vitamin D Total PTH Intact Urine pH Urine WBC (Auto) Urine Creatinine Urine Total Protein Fluid Total Protein Vancomycin Trough Rheumatoid Factor Complement C4 Miscellaneous Test Crossmatch 09/12/16 09/12/16 09/12/16 06:45 06:45 07:22 WBC 31.7 H RBC 3.54 L Hgb 8.3 L Hct 25.9 L MCV 73 L MCH 23 L MCHC RDW 18.9 H Plt Count Lymph % (Auto) [place] % (Auto) Lymph # [place] # Baso # Seg Neutrophils % Seg Neuts % (Manual) 88.5 H Lymphocytes % (Manual) 4.5 L Monocytes % (Manual) Eosinophils % (Manual) Basophils % (Manual) Nucleated RBC % Seg Neutrophils # Seg Neutrophils # Man 28.1 H Lymphocytes # (Manual) Monocytes # (Manual) 1.0 H Eosinophils # (Manual) Basophils # (Manual) PT INR Fibrinogen dRVVT Confirm Interp Factor V Activity POC ABG pH POC ABG pCO2 POC ABG pO2 ABG pO2 ABG HCO3 ABG Base Excess ABG Hemoglobin Oxyhemoglobin Sodium Potassium Chloride Carbon Dioxide 20 L BUN 115 H Creatinine 2.7 H Glucose 165 H POC Glucose Lactic Acid Calcium 8.0 L Ionized Calcium Phosphorus Magnesium Direct Bilirubin AST ALT Alkaline Phosphatase Lactate Dehydrogenase Troponin T C-Reactive Protein Total Protein Albumin Prealbumin Triglycerides 217 H Cholesterol LDL Cholesterol Direct HDL Cholesterol 25-OH Vitamin D Total PTH Intact Urine pH Urine WBC (Auto) Urine Creatinine Urine Total Protein Fluid Total Protein Vancomycin Trough Rheumatoid Factor Complement C4 Miscellaneous Test Crossmatch 09/12/16 09/12/16 09/12/16 07:22 09:59 12:21 WBC RBC Hgb Hct MCV MCH MCHC RDW Plt Count Lymph % (Auto) [place] % (Auto) Lymph # [place] # Baso # Seg Neutrophils % Seg Neuts % (Manual) Lymphocytes % (Manual) Monocytes % (Manual) Eosinophils % (Manual) Basophils % (Manual) Nucleated RBC % Seg Neutrophils # Seg Neutrophils # Man Lymphocytes # (Manual) Monocytes # (Manual) Eosinophils # (Manual) Basophils # (Manual) PT INR Fibrinogen dRVVT Confirm Interp Positive H Factor V Activity POC ABG pH POC ABG pCO2 POC ABG pO2 ABG pO2 ABG HCO3 ABG Base Excess ABG Hemoglobin Oxyhemoglobin Sodium Potassium Chloride Carbon Dioxide BUN Creatinine Glucose POC Glucose 224 H Lactic Acid Calcium Ionized Calcium Phosphorus Magnesium Direct Bilirubin AST ALT Alkaline Phosphatase Lactate Dehydrogenase Troponin T C-Reactive Protein 1.70 H Total Protein Albumin Prealbumin Triglycerides Cholesterol LDL Cholesterol Direct HDL Cholesterol 25-OH Vitamin D Total PTH Intact Urine pH Urine WBC (Auto) Urine Creatinine Urine Total Protein Fluid Total Protein Vancomycin Trough Rheumatoid Factor Complement C4 Miscellaneous Test Crossmatch 09/12/16 09/12/16 09/13/16 16:51 23:28 04:00 WBC 45.0 H* RBC Hgb 9.4 L Hct MCV 75 L MCH 23 L MCHC RDW 19.0 H Plt Count 470 H Lymph % (Auto) [place] % (Auto) Lymph # [place] # Baso # Seg Neutrophils % Seg Neuts % (Manual) 89.0 H Lymphocytes % (Manual) 5.0 L Monocytes % (Manual) Eosinophils % (Manual) Basophils % (Manual) Nucleated RBC % Seg Neutrophils # Seg Neutrophils # Man 40.1 H Lymphocytes # (Manual) Monocytes # (Manual) Eosinophils # (Manual) Basophils # (Manual) PT INR Fibrinogen dRVVT Confirm Interp Factor V Activity POC ABG pH POC ABG pCO2 POC ABG pO2 ABG pO2 ABG HCO3 ABG Base Excess ABG Hemoglobin Oxyhemoglobin Sodium Potassium Chloride Carbon Dioxide BUN Creatinine Glucose POC Glucose 169 H 150 H Lactic Acid Calcium Ionized Calcium Phosphorus Magnesium Direct Bilirubin AST ALT Alkaline Phosphatase Lactate Dehydrogenase Troponin T C-Reactive Protein Total Protein Albumin Prealbumin Triglycerides Cholesterol LDL Cholesterol Direct HDL Cholesterol 25-OH Vitamin D Total PTH Intact Urine pH Urine WBC (Auto) Urine Creatinine Urine Total Protein Fluid Total Protein Vancomycin Trough Rheumatoid Factor Complement C4 Miscellaneous Test Crossmatch 09/13/16 09/13/16 09/13/16 04:00 11:26 17:31 WBC RBC Hgb Hct MCV MCH MCHC RDW Plt Count Lymph % (Auto) [place] % (Auto) Lymph # [place] # Baso # Seg Neutrophils % Seg Neuts % (Manual) Lymphocytes % (Manual) Monocytes % (Manual) Eosinophils % (Manual) Basophils % (Manual) Nucleated RBC % Seg Neutrophils # Seg Neutrophils # Man Lymphocytes # (Manual) Monocytes # (Manual) Eosinophils # (Manual) Basophils # (Manual) PT INR Fibrinogen dRVVT Confirm Interp Factor V Activity POC ABG pH POC ABG pCO2 POC ABG pO2 ABG pO2 ABG HCO3 ABG Base Excess ABG Hemoglobin Oxyhemoglobin Sodium Potassium Chloride Carbon Dioxide 20 L BUN 116 H Creatinine 3.0 H Glucose 172 H POC Glucose 140 H 183 H Lactic Acid Calcium Ionized Calcium Phosphorus Magnesium Direct Bilirubin AST ALT Alkaline Phosphatase Lactate Dehydrogenase Troponin T C-Reactive Protein Total Protein 6.2 L Albumin 2.9 L Prealbumin Triglycerides Cholesterol LDL Cholesterol Direct HDL Cholesterol 25-OH Vitamin D Total PTH Intact Urine pH Urine WBC (Auto) Urine Creatinine Urine Total Protein Fluid Total Protein Vancomycin Trough Rheumatoid Factor Complement C4 Miscellaneous Test Crossmatch 09/13/16 09/14/16 09/14/16 23:23 04:06 04:07 WBC 29.4 H RBC Hgb 8.9 L Hct 27.3 L MCV 75 L MCH 24 L MCHC RDW 19.1 H Plt Count Lymph % (Auto) [place] % (Auto) Lymph # [place] # Baso # Seg Neutrophils % Seg Neuts % (Manual) 84.0 H Lymphocytes % (Manual) 6.0 L Monocytes % (Manual) 9.0 H Eosinophils % (Manual) Basophils % (Manual) Nucleated RBC % Seg Neutrophils # Seg Neutrophils # Man 24.7 H Lymphocytes # (Manual) Monocytes # (Manual) 2.6 H Eosinophils # (Manual) Basophils # (Manual) PT INR Fibrinogen dRVVT Confirm Interp Factor V Activity POC ABG pH 7.342 L POC ABG pCO2 POC ABG pO2 116 H ABG pO2 ABG HCO3 ABG Base Excess ABG Hemoglobin Oxyhemoglobin Sodium Potassium Chloride Carbon Dioxide BUN Creatinine Glucose POC Glucose 154 H Lactic Acid Calcium Ionized Calcium Phosphorus Magnesium Direct Bilirubin AST ALT Alkaline Phosphatase Lactate Dehydrogenase Troponin T C-Reactive Protein Total Protein Albumin Prealbumin Triglycerides Cholesterol LDL Cholesterol Direct HDL Cholesterol 25-OH Vitamin D Total PTH Intact Urine pH Urine WBC (Auto) Urine Creatinine Urine Total Protein Fluid Total Protein Vancomycin Trough Rheumatoid Factor Complement C4 Miscellaneous Test Crossmatch 09/14/16 09/14/16 09/14/16 04:07 05:29 12:19 WBC RBC Hgb Hct MCV MCH MCHC RDW Plt Count Lymph % (Auto) [place] % (Auto) Lymph # [place] # Baso # Seg Neutrophils % Seg Neuts % (Manual) Lymphocytes % (Manual) Monocytes % (Manual) Eosinophils % (Manual) Basophils % (Manual) Nucleated RBC % Seg Neutrophils # Seg Neutrophils # Man Lymphocytes # (Manual) Monocytes # (Manual) Eosinophils # (Manual) Basophils # (Manual) PT INR Fibrinogen dRVVT Confirm Interp Factor V Activity POC ABG pH POC ABG pCO2 POC ABG pO2 ABG pO2 ABG HCO3 ABG Base Excess ABG Hemoglobin Oxyhemoglobin Sodium 136 L Potassium Chloride Carbon Dioxide 18 L BUN 121 H Creatinine 2.8 H Glucose 214 H POC Glucose 239 H 181 H Lactic Acid Calcium Ionized Calcium Phosphorus Magnesium Direct Bilirubin AST ALT Alkaline Phosphatase Lactate Dehydrogenase Troponin T C-Reactive Protein Total Protein Albumin Prealbumin Triglycerides Cholesterol LDL Cholesterol Direct HDL Cholesterol 25-OH Vitamin D Total PTH Intact Urine pH Urine WBC (Auto) Urine Creatinine Urine Total Protein Fluid Total Protein Vancomycin Trough Rheumatoid Factor Complement C4 Miscellaneous Test Crossmatch 09/14/16 09/14/16 09/15/16 18:12 23:37 05:00 WBC 26.1 H RBC 3.05 L Hgb 7.2 L Hct 22.9 L MCV 75 L MCH 24 L MCHC RDW 19.0 H Plt Count Lymph % (Auto) [place] % (Auto) Lymph # [place] # Baso # Seg Neutrophils % Seg Neuts % (Manual) Lymphocytes % (Manual) Monocytes % (Manual) Eosinophils % (Manual) Basophils % (Manual) Nucleated RBC % Seg Neutrophils # Seg Neutrophils # Man Lymphocytes # (Manual) Monocytes # (Manual) Eosinophils # (Manual) Basophils # (Manual) PT INR Fibrinogen dRVVT Confirm Interp Factor V Activity POC ABG pH POC ABG pCO2 POC ABG pO2 ABG pO2 ABG HCO3 ABG Base Excess ABG Hemoglobin Oxyhemoglobin Sodium Potassium Chloride Carbon Dioxide BUN Creatinine Glucose POC Glucose 266 H 154 H Lactic Acid Calcium Ionized Calcium Phosphorus Magnesium Direct Bilirubin AST ALT Alkaline Phosphatase Lactate Dehydrogenase Troponin T C-Reactive Protein Total Protein Albumin Prealbumin Triglycerides Cholesterol LDL Cholesterol Direct HDL Cholesterol 25-OH Vitamin D Total PTH Intact Urine pH Urine WBC (Auto) Urine Creatinine Urine Total Protein Fluid Total Protein Vancomycin Trough Rheumatoid Factor Complement C4 Miscellaneous Test Crossmatch 09/15/16 09/15/16 09/15/16 05:00 05:17 12:45 WBC RBC Hgb Hct MCV MCH MCHC RDW Plt Count Lymph % (Auto) [place] % (Auto) Lymph # [place] # Baso # Seg Neutrophils % Seg Neuts % (Manual) Lymphocytes % (Manual) Monocytes % (Manual) Eosinophils % (Manual) Basophils % (Manual) Nucleated RBC % Seg Neutrophils # Seg Neutrophils # Man Lymphocytes # (Manual) Monocytes # (Manual) Eosinophils # (Manual) Basophils # (Manual) PT INR Fibrinogen dRVVT Confirm Interp Factor V Activity POC ABG pH POC ABG pCO2 POC ABG pO2 ABG pO2 ABG HCO3 ABG Base Excess ABG Hemoglobin Oxyhemoglobin Sodium Potassium 5.2 H Chloride Carbon Dioxide 18 L BUN 139 H Creatinine 3.7 H Glucose 227 H POC Glucose 226 H 244 H Lactic Acid Calcium 8.3 L Ionized Calcium Phosphorus Magnesium Direct Bilirubin AST ALT Alkaline Phosphatase Lactate Dehydrogenase Troponin T C-Reactive Protein Total Protein Albumin Prealbumin Triglycerides Cholesterol LDL Cholesterol Direct HDL Cholesterol 25-OH Vitamin D Total PTH Intact Urine pH Urine WBC (Auto) Urine Creatinine Urine Total Protein Fluid Total Protein Vancomycin Trough Rheumatoid Factor Complement C4 Miscellaneous Test Crossmatch 09/15/16 09/15/16 09/15/16 14:32 17:33 23:35 WBC RBC Hgb Hct MCV MCH MCHC RDW Plt Count Lymph % (Auto) [place] % (Auto) Lymph # [place] # Baso # Seg Neutrophils % Seg Neuts % (Manual) Lymphocytes % (Manual) Monocytes % (Manual) Eosinophils % (Manual) Basophils % (Manual) Nucleated RBC % Seg Neutrophils # Seg Neutrophils # Man Lymphocytes # (Manual) Monocytes # (Manual) Eosinophils # (Manual) Basophils # (Manual) PT INR Fibrinogen dRVVT Confirm Interp Factor V Activity POC ABG pH POC ABG pCO2 27.7 L POC ABG pO2 120 H ABG pO2 ABG HCO3 ABG Base Excess ABG Hemoglobin Oxyhemoglobin Sodium Potassium Chloride Carbon Dioxide BUN Creatinine Glucose POC Glucose 232 H 167 H Lactic Acid Calcium Ionized Calcium Phosphorus Magnesium Direct Bilirubin AST ALT Alkaline Phosphatase Lactate Dehydrogenase Troponin T C-Reactive Protein Total Protein Albumin Prealbumin Triglycerides Cholesterol LDL Cholesterol Direct HDL Cholesterol 25-OH Vitamin D Total PTH Intact Urine pH Urine WBC (Auto) Urine Creatinine Urine Total Protein Fluid Total Protein Vancomycin Trough Rheumatoid Factor Complement C4 Miscellaneous Test Crossmatch 09/16/16 09/16/16 09/16/16 03:58 10:27 10:27 WBC 19.0 H RBC 2.77 L Hgb 6.5 L Hct 20.9 L MCV 76 L MCH 23 L MCHC RDW 19.3 H Plt Count Lymph % (Auto) 11.[address] [place] % (Auto) Lymph # [place] # 1.1 H Baso # Seg Neutrophils % 82.5 H Seg Neuts % (Manual) Lymphocytes % (Manual) Monocytes % (Manual) Eosinophils % (Manual) Basophils % (Manual) Nucleated RBC % Seg Neutrophils # 15.7 H Seg Neutrophils # Man Lymphocytes # (Manual) Monocytes # (Manual) Eosinophils # (Manual) Basophils # (Manual) PT INR Fibrinogen dRVVT Confirm Interp Factor V Activity POC ABG pH POC ABG pCO2 POC ABG pO2 ABG pO2 ABG HCO3 ABG Base Excess ABG Hemoglobin Oxyhemoglobin Sodium Potassium Chloride 109.3 H Carbon Dioxide 18 L BUN 139 H Creatinine 4.1 H Glucose 144 H POC Glucose 146 H Lactic Acid Calcium 8.1 L Ionized Calcium Phosphorus Magnesium Direct Bilirubin AST ALT Alkaline Phosphatase Lactate Dehydrogenase Troponin T C-Reactive Protein Total Protein Albumin Prealbumin Triglycerides Cholesterol LDL Cholesterol Direct HDL Cholesterol 25-OH Vitamin D Total PTH Intact Urine pH Urine WBC (Auto) Urine Creatinine Urine Total Protein Fluid Total Protein Vancomycin Trough Rheumatoid Factor Complement C4 Miscellaneous Test Crossmatch 09/16/16 09/16/16 09/16/16 12:04 12:10 13:55 WBC RBC Hgb Hct MCV MCH MCHC RDW Plt Count Lymph % (Auto) [place] % (Auto) Lymph # [place] # Baso # Seg Neutrophils % Seg Neuts % (Manual) Lymphocytes % (Manual) Monocytes % (Manual) Eosinophils % (Manual) Basophils % (Manual) Nucleated RBC % Seg Neutrophils # Seg Neutrophils # Man Lymphocytes # (Manual) Monocytes # (Manual) Eosinophils # (Manual) Basophils # (Manual) PT INR Fibrinogen dRVVT Confirm Interp Factor V Activity POC ABG pH POC ABG pCO2 32.9 L POC ABG pO2 ABG pO2 ABG HCO3 ABG Base Excess ABG Hemoglobin Oxyhemoglobin Sodium Potassium Chloride Carbon Dioxide BUN Creatinine Glucose POC Glucose 185 H Lactic Acid Calcium Ionized Calcium Phosphorus Magnesium Direct Bilirubin AST ALT Alkaline Phosphatase Lactate Dehydrogenase Troponin T C-Reactive Protein Total Protein Albumin Prealbumin Triglycerides Cholesterol LDL Cholesterol Direct HDL Cholesterol 25-OH Vitamin D Total PTH Intact Urine pH Urine WBC (Auto) Urine Creatinine Urine Total Protein Fluid Total Protein Vancomycin Trough Rheumatoid Factor Complement C4 Miscellaneous Test Crossmatch See Detail 09/16/16 09/16/16 09/16/16 17:55 19:19 23:48 WBC RBC Hgb Hct MCV MCH MCHC RDW Plt Count Lymph % (Auto) [place] % (Auto) Lymph # [place] # Baso # Seg Neutrophils % Seg Neuts % (Manual) Lymphocytes % (Manual) Monocytes % (Manual) Eosinophils % (Manual) Basophils % (Manual) Nucleated RBC % Seg Neutrophils # Seg Neutrophils # Man Lymphocytes # (Manual) Monocytes # (Manual) Eosinophils # (Manual) Basophils # (Manual) PT INR Fibrinogen dRVVT Confirm Interp Factor V Activity POC ABG pH POC ABG pCO2 POC ABG pO2 ABG pO2 ABG HCO3 ABG Base Excess ABG Hemoglobin Oxyhemoglobin Sodium Potassium Chloride Carbon Dioxide BUN Creatinine Glucose POC Glucose 222 H 107 H Lactic Acid Calcium Ionized Calcium Phosphorus Magnesium Direct Bilirubin AST ALT Alkaline Phosphatase Lactate Dehydrogenase Troponin T C-Reactive Protein Total Protein Albumin Prealbumin Triglycerides Cholesterol LDL Cholesterol Direct HDL Cholesterol 25-OH Vitamin D Total PTH Intact Urine pH Urine WBC (Auto) Urine Creatinine 47.4 H Urine Total Protein 16 H Fluid Total Protein Vancomycin Trough Rheumatoid Factor Complement C4 Miscellaneous Test Crossmatch 09/17/16 09/17/16 09/17/16 03:45 03:45 04:55 WBC 19.6 H RBC 3.41 L Hgb 8.5 L Hct 26.7 L MCV 78 L MCH 25 L MCHC RDW 19.9 H Plt Count Lymph % (Auto) 9.[address] [place] % (Auto) Lymph # [place] # 1.2 H Baso # Seg Neutrophils % 83.9 H Seg Neuts % (Manual) Lymphocytes % (Manual) Monocytes % (Manual) Eosinophils % (Manual) Basophils % (Manual) Nucleated RBC % Seg Neutrophils # 16.4 H Seg Neutrophils # Man Lymphocytes # (Manual) Monocytes # (Manual) Eosinophils # (Manual) Basophils # (Manual) PT INR Fibrinogen dRVVT Confirm Interp Factor V Activity POC ABG pH POC ABG pCO2 POC ABG pO2 ABG pO2 ABG HCO3 ABG Base Excess ABG Hemoglobin Oxyhemoglobin Sodium 146 H Potassium 5.1 H Chloride 110.9 H Carbon Dioxide 16 L BUN 146 H Creatinine 4.0 H Glucose 108 H POC Glucose 133 H Lactic Acid Calcium Ionized Calcium Phosphorus Magnesium 3.00 H Direct Bilirubin AST ALT Alkaline Phosphatase Lactate Dehydrogenase Troponin T C-Reactive Protein Total Protein Albumin Prealbumin Triglycerides Cholesterol LDL Cholesterol Direct HDL Cholesterol 25-OH Vitamin D Total PTH Intact Urine pH Urine WBC (Auto) Urine Creatinine Urine Total Protein Fluid Total Protein Vancomycin Trough Rheumatoid Factor Complement C4 Miscellaneous Test Crossmatch 09/17/16 09/17/16 09/17/16 11:15 17:33 23:47 WBC RBC Hgb Hct MCV MCH MCHC RDW Plt Count Lymph % (Auto) [place] % (Auto) Lymph # [place] # Baso # Seg Neutrophils % Seg Neuts % (Manual) Lymphocytes % (Manual) Monocytes % (Manual) Eosinophils % (Manual) Basophils % (Manual) Nucleated RBC % Seg Neutrophils # Seg Neutrophils # Man Lymphocytes # (Manual) Monocytes # (Manual) Eosinophils # (Manual) Basophils # (Manual) PT INR Fibrinogen dRVVT Confirm Interp Factor V Activity POC ABG pH POC ABG pCO2 POC ABG pO2 ABG pO2 ABG HCO3 ABG Base Excess ABG Hemoglobin Oxyhemoglobin Sodium Potassium Chloride Carbon Dioxide BUN Creatinine Glucose POC Glucose 176 H 246 H 148 H Lactic Acid Calcium Ionized Calcium Phosphorus Magnesium Direct Bilirubin AST ALT Alkaline Phosphatase Lactate Dehydrogenase Troponin T C-Reactive Protein Total Protein Albumin Prealbumin Triglycerides Cholesterol LDL Cholesterol Direct HDL Cholesterol 25-OH Vitamin D Total PTH Intact Urine pH Urine WBC (Auto) Urine Creatinine Urine Total Protein Fluid Total Protein Vancomycin Trough Rheumatoid Factor Complement C4 Miscellaneous Test Crossmatch 09/18/16 09/18/16 09/18/16 05:33 08:31 08:31 WBC 18.0 H RBC 3.17 L Hgb 9.0 L Hct 25.7 L MCV MCH MCHC 35 H RDW 20.4 H Plt Count Lymph % (Auto) [place] % (Auto) Lymph # [place] # Baso # Seg Neutrophils % Seg Neuts % (Manual) Lymphocytes % (Manual) Monocytes % (Manual) Eosinophils % (Manual) Basophils % (Manual) Nucleated RBC % Seg Neutrophils # Seg Neutrophils # Man Lymphocytes # (Manual) Monocytes # (Manual) Eosinophils # (Manual) Basophils # (Manual) PT INR Fibrinogen dRVVT Confirm Interp Factor V Activity POC ABG pH POC ABG pCO2 POC ABG pO2 ABG pO2 ABG HCO3 ABG Base Excess ABG Hemoglobin Oxyhemoglobin Sodium Potassium Chloride Carbon Dioxide 15 L BUN 124 H Creatinine 3.8 H Glucose POC Glucose 120 H Lactic Acid Calcium 8.1 L Ionized Calcium Phosphorus Magnesium Direct Bilirubin AST ALT Alkaline Phosphatase Lactate Dehydrogenase Troponin T C-Reactive Protein Total Protein Albumin Prealbumin Triglycerides Cholesterol LDL Cholesterol Direct HDL Cholesterol 25-OH Vitamin D Total PTH Intact Urine pH Urine WBC (Auto) Urine Creatinine Urine Total Protein Fluid Total Protein Vancomycin Trough Rheumatoid Factor Complement C4 Miscellaneous Test Crossmatch 09/18/16 09/18/16 09/18/16 12:03 15:34 17:50 WBC RBC Hgb Hct MCV MCH MCHC RDW Plt Count Lymph % (Auto) [place] % (Auto) Lymph # [place] # Baso # Seg Neutrophils % Seg Neuts % (Manual) Lymphocytes % (Manual) Monocytes % (Manual) Eosinophils % (Manual) Basophils % (Manual) Nucleated RBC % Seg Neutrophils # Seg Neutrophils # Man Lymphocytes # (Manual) Monocytes # (Manual) Eosinophils # (Manual) Basophils # (Manual) PT INR Fibrinogen dRVVT Confirm Interp Factor V Activity POC ABG pH POC ABG pCO2 25.7 L POC ABG pO2 66 L ABG pO2 ABG HCO3 ABG Base Excess ABG Hemoglobin Oxyhemoglobin Sodium Potassium Chloride Carbon Dioxide BUN Creatinine Glucose POC Glucose 156 H 220 H Lactic Acid Calcium Ionized Calcium Phosphorus Magnesium Direct Bilirubin AST ALT Alkaline Phosphatase Lactate Dehydrogenase Troponin T C-Reactive Protein Total Protein Albumin Prealbumin Triglycerides Cholesterol LDL Cholesterol Direct HDL Cholesterol 25-OH Vitamin D Total PTH Intact Urine pH Urine WBC (Auto) Urine Creatinine Urine Total Protein Fluid Total Protein Vancomycin Trough Rheumatoid Factor Complement C4 Miscellaneous Test Crossmatch 09/19/16 09/19/16 09/19/16 06:21 09:50 09:50 WBC 17.1 H RBC 3.49 L Hgb 9.0 L Hct 28.1 L MCV MCH 26 L MCHC RDW 20.8 H Plt Count Lymph % (Auto) 11.[address] [place] % (Auto) 7.5 H Lymph # [place] # 1.3 H Baso # Seg Neutrophils % 79.8 H Seg Neuts % (Manual) Lymphocytes % (Manual) Monocytes % (Manual) Eosinophils % (Manual) Basophils % (Manual) Nucleated RBC % Seg Neutrophils # 13.7 H Seg Neutrophils # Man Lymphocytes # (Manual) Monocytes # (Manual) Eosinophils # (Manual) Basophils # (Manual) PT INR Fibrinogen dRVVT Confirm Interp Factor V Activity POC ABG pH POC ABG pCO2 POC ABG pO2 ABG pO2 ABG HCO3 ABG Base Excess ABG Hemoglobin Oxyhemoglobin Sodium Potassium Chloride 108.6 H Carbon Dioxide 15 L BUN 125 H Creatinine 4.1 H Glucose 124 H POC Glucose 119 H Lactic Acid Calcium Ionized Calcium Phosphorus Magnesium Direct Bilirubin AST ALT Alkaline Phosphatase Lactate Dehydrogenase Troponin T C-Reactive Protein Total Protein Albumin Prealbumin Triglycerides Cholesterol LDL Cholesterol Direct HDL Cholesterol 25-OH Vitamin D Total PTH Intact Urine pH Urine WBC (Auto) Urine Creatinine Urine Total Protein Fluid Total Protein Vancomycin Trough Rheumatoid Factor Complement C4 Miscellaneous Test Crossmatch 09/19/16 09/19/16 09/19/16 11:25 17:53 23:36 WBC RBC Hgb Hct MCV MCH MCHC RDW Plt Count Lymph % (Auto) [place] % (Auto) Lymph # [place] # Baso # Seg Neutrophils % Seg Neuts % (Manual) Lymphocytes % (Manual) Monocytes % (Manual) Eosinophils % (Manual) Basophils % (Manual) Nucleated RBC % Seg Neutrophils # Seg Neutrophils # Man Lymphocytes # (Manual) Monocytes # (Manual) Eosinophils # (Manual) Basophils # (Manual) PT INR Fibrinogen dRVVT Confirm Interp Factor V Activity POC ABG pH POC ABG pCO2 POC ABG pO2 ABG pO2 ABG HCO3 ABG Base Excess ABG Hemoglobin Oxyhemoglobin Sodium Potassium Chloride Carbon Dioxide BUN Creatinine Glucose POC Glucose 160 H 245 H 121 H Lactic Acid Calcium Ionized Calcium Phosphorus Magnesium Direct Bilirubin AST ALT Alkaline Phosphatase Lactate Dehydrogenase Troponin T C-Reactive Protein Total Protein Albumin Prealbumin Triglycerides Cholesterol LDL Cholesterol Direct HDL Cholesterol 25-OH Vitamin D Total PTH Intact Urine pH Urine WBC (Auto) Urine Creatinine Urine Total Protein Fluid Total Protein Vancomycin Trough Rheumatoid Factor Complement C4 Miscellaneous Test Crossmatch 09/20/16 09/20/16 09/20/16 04:10 04:10 04:10 WBC 17.0 H RBC 3.21 L Hgb 8.2 L Hct 25.5 L MCV MCH 26 L MCHC RDW 20.9 H Plt Count Lymph % (Auto) [place] % (Auto) Lymph # [place] # Baso # Seg Neutrophils % Seg Neuts % (Manual) Lymphocytes % (Manual) Monocytes % (Manual) Eosinophils % (Manual) Basophils % (Manual) Nucleated RBC % Seg Neutrophils # Seg Neutrophils # Man Lymphocytes # (Manual) Monocytes # (Manual) Eosinophils # (Manual) Basophils # (Manual) PT INR Fibrinogen dRVVT Confirm Interp Factor V Activity POC ABG pH POC ABG pCO2 POC ABG pO2 ABG pO2 ABG HCO3 ABG Base Excess ABG Hemoglobin Oxyhemoglobin Sodium Potassium Chloride 111.0 H Carbon Dioxide 16 L BUN 129 H Creatinine 3.7 H Glucose 115 H POC Glucose Lactic Acid Calcium 8.2 L Ionized Calcium Phosphorus Magnesium Direct Bilirubin AST ALT Alkaline Phosphatase Lactate Dehydrogenase Troponin T C-Reactive Protein Total Protein Albumin Prealbumin Triglycerides 243 H Cholesterol LDL Cholesterol Direct HDL Cholesterol 25-OH Vitamin D Total PTH Intact Urine pH Urine WBC (Auto) Urine Creatinine Urine Total Protein Fluid Total Protein Vancomycin Trough Rheumatoid Factor Complement C4 Miscellaneous Test Crossmatch 09/20/16 09/20/16 09/20/16 05:40 11:52 16:50 WBC RBC Hgb Hct MCV MCH MCHC RDW Plt Count Lymph % (Auto) [place] % (Auto) Lymph # [place] # Baso # Seg Neutrophils % Seg Neuts % (Manual) Lymphocytes % (Manual) Monocytes % (Manual) Eosinophils % (Manual) Basophils % (Manual) Nucleated RBC % Seg Neutrophils # Seg Neutrophils # Man Lymphocytes # (Manual) Monocytes # (Manual) Eosinophils # (Manual) Basophils # (Manual) PT INR Fibrinogen dRVVT Confirm Interp Factor V Activity POC ABG pH POC ABG pCO2 POC ABG pO2 ABG pO2 ABG HCO3 ABG Base Excess ABG Hemoglobin Oxyhemoglobin Sodium Potassium Chloride Carbon Dioxide BUN Creatinine Glucose POC Glucose 131 H 183 H 236 H Lactic Acid Calcium Ionized Calcium Phosphorus Magnesium Direct Bilirubin AST ALT Alkaline Phosphatase Lactate Dehydrogenase Troponin T C-Reactive Protein Total Protein Albumin Prealbumin Triglycerides Cholesterol LDL Cholesterol Direct HDL Cholesterol 25-OH Vitamin D Total PTH Intact Urine pH Urine WBC (Auto) Urine Creatinine Urine Total Protein Fluid Total Protein Vancomycin Trough Rheumatoid Factor Complement C4 Miscellaneous Test Crossmatch 09/20/16 09/21/16 09/21/16 23:51 03:30 04:44 WBC RBC Hgb Hct MCV MCH MCHC RDW Plt Count Lymph % (Auto) [place] % (Auto) Lymph # [place] # Baso # Seg Neutrophils % Seg Neuts % (Manual) Lymphocytes % (Manual) Monocytes % (Manual) Eosinophils % (Manual) Basophils % (Manual) Nucleated RBC % Seg Neutrophils # Seg Neutrophils # Man Lymphocytes # (Manual) Monocytes # (Manual) Eosinophils # (Manual) Basophils # (Manual) PT INR Fibrinogen dRVVT Confirm Interp Factor V Activity POC ABG pH POC ABG pCO2 POC ABG pO2 ABG pO2 ABG HCO3 ABG Base Excess ABG Hemoglobin Oxyhemoglobin Sodium Potassium Chloride Carbon Dioxide BUN Creatinine Glucose POC Glucose 114 H 141 H Lactic Acid Calcium Ionized Calcium Phosphorus Magnesium 2.70 H Direct Bilirubin AST ALT Alkaline Phosphatase Lactate Dehydrogenase Troponin T C-Reactive Protein Total Protein Albumin Prealbumin Triglycerides Cholesterol LDL Cholesterol Direct HDL Cholesterol 25-OH Vitamin D Total PTH Intact Urine pH Urine WBC (Auto) Urine Creatinine Urine Total Protein Fluid Total Protein Vancomycin Trough Rheumatoid Factor Complement C4 Miscellaneous Test Crossmatch 09/21/16 09/21/16 09/21/16 07:45 07:45 10:01 WBC 13.8 H RBC 2.94 L Hgb 7.5 L Hct 23.5 L MCV MCH 26 L MCHC RDW 21.2 H Plt Count Lymph % (Auto) 6.[address] [place] % (Auto) 9.4 H Lymph # 0.[address] [place] # 1.3 H Baso # Seg Neutrophils % 83.2 H Seg Neuts % (Manual) Lymphocytes % (Manual) Monocytes % (Manual) Eosinophils % (Manual) Basophils % (Manual) Nucleated RBC % Seg Neutrophils # 11.5 H Seg Neutrophils # Man Lymphocytes # (Manual) Monocytes # (Manual) Eosinophils # (Manual) Basophils # (Manual) PT INR Fibrinogen dRVVT Confirm Interp Factor V Activity POC ABG pH 7.308 L POC ABG pCO2 31.9 L POC ABG pO2 148 H ABG pO2 ABG HCO3 ABG Base Excess ABG Hemoglobin Oxyhemoglobin Sodium 147 H Potassium Chloride 114.2 H Carbon Dioxide 15 L BUN 120 H Creatinine 3.9 H Glucose 156 H POC Glucose Lactic Acid Calcium 8.2 L Ionized Calcium Phosphorus Magnesium Direct Bilirubin AST ALT Alkaline Phosphatase Lactate Dehydrogenase Troponin T C-Reactive Protein Total Protein Albumin Prealbumin Triglycerides Cholesterol LDL Cholesterol Direct HDL Cholesterol 25-OH Vitamin D Total PTH Intact Urine pH Urine WBC (Auto) Urine Creatinine Urine Total Protein Fluid Total Protein Vancomycin Trough Rheumatoid Factor Complement C4 Miscellaneous Test Crossmatch 09/21/16 09/21/16 09/21/16 12:00 12:03 13:00 WBC RBC Hgb Hct MCV MCH MCHC RDW Plt Count Lymph % (Auto) [place] % (Auto) Lymph # [place] # Baso # Seg Neutrophils % Seg Neuts % (Manual) Lymphocytes % (Manual) Monocytes % (Manual) Eosinophils % (Manual) Basophils % (Manual) Nucleated RBC % Seg Neutrophils # Seg Neutrophils # Man Lymphocytes # (Manual) Monocytes # (Manual) Eosinophils # (Manual) Basophils # (Manual) PT INR Fibrinogen dRVVT Confirm Interp Factor V Activity POC ABG pH POC ABG pCO2 POC ABG pO2 ABG pO2 ABG HCO3 ABG Base Excess ABG Hemoglobin Oxyhemoglobin Sodium Potassium Chloride Carbon Dioxide BUN Creatinine Glucose POC Glucose 163 H Lactic Acid Calcium Ionized Calcium Phosphorus Magnesium Direct Bilirubin AST ALT Alkaline Phosphatase Lactate Dehydrogenase Troponin T C-Reactive Protein Total Protein Albumin Prealbumin Triglycerides Cholesterol LDL Cholesterol Direct HDL Cholesterol 25-OH Vitamin D Total PTH Intact Urine pH Urine WBC (Auto) Urine Creatinine 54.8 H Urine Total Protein Fluid Total Protein Vancomycin Trough 2.3 L Rheumatoid Factor Complement C4 Miscellaneous Test Crossmatch 09/21/16 09/21/16 09/22/16 16:51 23:17 06:27 WBC RBC Hgb Hct MCV MCH MCHC RDW Plt Count Lymph % (Auto) [place] % (Auto) Lymph # [place] # Baso # Seg Neutrophils % Seg Neuts % (Manual) Lymphocytes % (Manual) Monocytes % (Manual) Eosinophils % (Manual) Basophils % (Manual) Nucleated RBC % Seg Neutrophils # Seg Neutrophils # Man Lymphocytes # (Manual) Monocytes # (Manual) Eosinophils # (Manual) Basophils # (Manual) PT INR Fibrinogen dRVVT Confirm Interp Factor V Activity POC ABG pH POC ABG pCO2 POC ABG pO2 ABG pO2 ABG HCO3 ABG Base Excess ABG Hemoglobin Oxyhemoglobin Sodium Potassium Chloride Carbon Dioxide BUN Creatinine Glucose POC Glucose 206 H 114 H 115 H Lactic Acid Calcium Ionized Calcium Phosphorus Magnesium Direct Bilirubin AST ALT Alkaline Phosphatase Lactate Dehydrogenase Troponin T C-Reactive Protein Total Protein Albumin Prealbumin Triglycerides Cholesterol LDL Cholesterol Direct HDL Cholesterol 25-OH Vitamin D Total PTH Intact Urine pH Urine WBC (Auto) Urine Creatinine Urine Total Protein Fluid Total Protein Vancomycin Trough Rheumatoid Factor Complement C4 Miscellaneous Test Crossmatch 09/22/16 09/22/16 09/22/16 07:50 07:50 12:00 WBC 17.8 H RBC 3.04 L Hgb 8.0 L Hct 24.7 L MCV MCH 26 L MCHC RDW 21.6 H Plt Count Lymph % (Auto) [place] % (Auto) Lymph # [place] # Baso # Seg Neutrophils % Seg Neuts % (Manual) Lymphocytes % (Manual) Monocytes % (Manual) Eosinophils % (Manual) Basophils % (Manual) Nucleated RBC % Seg Neutrophils # Seg Neutrophils # Man Lymphocytes # (Manual) Monocytes # (Manual) Eosinophils # (Manual) Basophils # (Manual) PT INR Fibrinogen dRVVT Confirm Interp Factor V Activity POC ABG pH POC ABG pCO2 POC ABG pO2 ABG pO2 ABG HCO3 ABG Base Excess ABG Hemoglobin Oxyhemoglobin Sodium 150 H Potassium Chloride 118.2 H Carbon Dioxide 14 L BUN 111 H Creatinine 3.7 H Glucose 157 H POC Glucose 183 H Lactic Acid Calcium Ionized Calcium Phosphorus Magnesium Direct Bilirubin AST ALT Alkaline Phosphatase Lactate Dehydrogenase Troponin T C-Reactive Protein Total Protein Albumin Prealbumin Triglycerides Cholesterol LDL Cholesterol Direct HDL Cholesterol 25-OH Vitamin D Total PTH Intact Urine pH Urine WBC (Auto) Urine Creatinine Urine Total Protein Fluid Total Protein Vancomycin Trough Rheumatoid Factor Complement C4 Miscellaneous Test Crossmatch 09/22/16 09/22/16 09/23/16 17:29 23:10 05:00 WBC 19.2 H RBC 3.13 L Hgb 8.0 L Hct 25.2 L MCV MCH 26 L MCHC RDW 22.1 H Plt Count Lymph % (Auto) [place] % (Auto) Lymph # [place] # Baso # Seg Neutrophils % Seg Neuts % (Manual) 92.0 H Lymphocytes % (Manual) 3.0 L Monocytes % (Manual) Eosinophils % (Manual) Basophils % (Manual) Nucleated RBC % Seg Neutrophils # Seg Neutrophils # Man 17.7 H Lymphocytes # (Manual) 0.6 L Monocytes # (Manual) Eosinophils # (Manual) Basophils # (Manual) PT INR Fibrinogen dRVVT Confirm Interp Factor V Activity POC ABG pH POC ABG pCO2 POC ABG pO2 ABG pO2 ABG HCO3 ABG Base Excess ABG Hemoglobin Oxyhemoglobin Sodium Potassium Chloride Carbon Dioxide BUN Creatinine Glucose POC Glucose 197 H 169 H Lactic Acid Calcium Ionized Calcium Phosphorus Magnesium Direct Bilirubin AST ALT Alkaline Phosphatase Lactate Dehydrogenase Troponin T C-Reactive Protein Total Protein Albumin Prealbumin Triglycerides Cholesterol LDL Cholesterol Direct HDL Cholesterol 25-OH Vitamin D Total PTH Intact Urine pH Urine WBC (Auto) Urine Creatinine Urine Total Protein Fluid Total Protein Vancomycin Trough Rheumatoid Factor Complement C4 Miscellaneous Test Crossmatch 09/23/16 09/23/16 09/23/16 05:00 05:00 05:10 WBC RBC Hgb Hct MCV MCH MCHC RDW Plt Count Lymph % (Auto) [place] % (Auto) Lymph # [place] # Baso # Seg Neutrophils % Seg Neuts % (Manual) Lymphocytes % (Manual) Monocytes % (Manual) Eosinophils % (Manual) Basophils % (Manual) Nucleated RBC % Seg Neutrophils # Seg Neutrophils # Man Lymphocytes # (Manual) Monocytes # (Manual) Eosinophils # (Manual) Basophils # (Manual) PT INR Fibrinogen dRVVT Confirm Interp Factor V Activity POC ABG pH POC ABG pCO2 POC ABG pO2 ABG pO2 ABG HCO3 ABG Base Excess ABG Hemoglobin Oxyhemoglobin Sodium 147 H Potassium 3.2 L Chloride 115.7 H Carbon Dioxide 13 L BUN 111 H Creatinine 3.8 H Glucose 194 H POC Glucose 188 H Lactic Acid Calcium 7.3 L D Ionized Calcium Phosphorus Magnesium Direct Bilirubin AST ALT Alkaline Phosphatase Lactate Dehydrogenase Troponin T C-Reactive Protein 3.20 H Total Protein Albumin Prealbumin Triglycerides Cholesterol LDL Cholesterol Direct HDL Cholesterol 25-OH Vitamin D Total PTH Intact Urine pH Urine WBC (Auto) Urine Creatinine Urine Total Protein Fluid Total Protein Vancomycin Trough Rheumatoid Factor Complement C4 Miscellaneous Test Crossmatch 09/23/16 09/23/16 09/23/16 11:37 12:29 18:01 WBC RBC Hgb Hct MCV MCH MCHC RDW Plt Count Lymph % (Auto) [place] % (Auto) Lymph # [place] # Baso # Seg Neutrophils % Seg Neuts % (Manual) Lymphocytes % (Manual) Monocytes % (Manual) Eosinophils % (Manual) Basophils % (Manual) Nucleated RBC % Seg Neutrophils # Seg Neutrophils # Man Lymphocytes # (Manual) Monocytes # (Manual) Eosinophils # (Manual) Basophils # (Manual) PT INR Fibrinogen dRVVT Confirm Interp Factor V Activity POC ABG pH POC ABG pCO2 18.9 L POC ABG pO2 143 H ABG pO2 ABG HCO3 ABG Base Excess ABG Hemoglobin Oxyhemoglobin Sodium Potassium Chloride Carbon Dioxide BUN Creatinine Glucose POC Glucose 153 H 108 H Lactic Acid Calcium Ionized Calcium Phosphorus Magnesium Direct Bilirubin AST ALT Alkaline Phosphatase Lactate Dehydrogenase Troponin T C-Reactive Protein Total Protein Albumin Prealbumin Triglycerides Cholesterol LDL Cholesterol Direct HDL Cholesterol 25-OH Vitamin D Total PTH Intact Urine pH Urine WBC (Auto) Urine Creatinine Urine Total Protein Fluid Total Protein Vancomycin Trough Rheumatoid Factor Complement C4 Miscellaneous Test Crossmatch 09/23/16 09/23/16 09/24/16 21:19 23:43 05:16 WBC RBC Hgb Hct MCV MCH MCHC RDW Plt Count Lymph % (Auto) [place] % (Auto) Lymph # [place] # Baso # Seg Neutrophils % Seg Neuts % (Manual) Lymphocytes % (Manual) Monocytes % (Manual) Eosinophils % (Manual) Basophils % (Manual) Nucleated RBC % Seg Neutrophils # Seg Neutrophils # Man Lymphocytes # (Manual) Monocytes # (Manual) Eosinophils # (Manual) Basophils # (Manual) PT INR Fibrinogen dRVVT Confirm Interp Factor V Activity POC ABG pH POC ABG pCO2 17.3 L POC ABG pO2 112 H ABG pO2 ABG HCO3 ABG Base Excess ABG Hemoglobin Oxyhemoglobin Sodium Potassium Chloride Carbon Dioxide BUN Creatinine Glucose POC Glucose 143 H 164 H Lactic Acid Calcium Ionized Calcium Phosphorus Magnesium Direct Bilirubin AST ALT Alkaline Phosphatase Lactate Dehydrogenase Troponin T C-Reactive Protein Total Protein Albumin Prealbumin Triglycerides Cholesterol LDL Cholesterol Direct HDL Cholesterol 25-OH Vitamin D Total PTH Intact Urine pH Urine WBC (Auto) Urine Creatinine Urine Total Protein Fluid Total Protein Vancomycin Trough Rheumatoid Factor Complement C4 Miscellaneous Test Crossmatch 09/24/16 09/24/16 09/24/16 05:21 11:58 17:06 WBC RBC Hgb Hct MCV MCH MCHC RDW Plt Count Lymph % (Auto) [place] % (Auto) Lymph # [place] # Baso # Seg Neutrophils % Seg Neuts % (Manual) Lymphocytes % (Manual) Monocytes % (Manual) Eosinophils % (Manual) Basophils % (Manual) Nucleated RBC % Seg Neutrophils # Seg Neutrophils # Man Lymphocytes # (Manual) Monocytes # (Manual) Eosinophils # (Manual) Basophils # (Manual) PT INR Fibrinogen dRVVT Confirm Interp Factor V Activity POC ABG pH POC ABG pCO2 POC ABG pO2 ABG pO2 ABG HCO3 ABG Base Excess ABG Hemoglobin Oxyhemoglobin Sodium Potassium Chloride Carbon Dioxide 10 L BUN 103 H Creatinine 4.3 H Glucose 163 H POC Glucose 173 H 167 H Lactic Acid Calcium 6.5 L Ionized Calcium Phosphorus Magnesium Direct Bilirubin AST ALT Alkaline Phosphatase Lactate Dehydrogenase Troponin T C-Reactive Protein Total Protein Albumin Prealbumin Triglycerides Cholesterol LDL Cholesterol Direct HDL Cholesterol 25-OH Vitamin D Total PTH Intact Urine pH Urine WBC (Auto) Urine Creatinine Urine Total Protein Fluid Total Protein Vancomycin Trough Rheumatoid Factor Complement C4 Miscellaneous Test Crossmatch 09/24/16 09/24/16 09/24/16 20:15 21:02 23:48 WBC RBC Hgb Hct MCV MCH MCHC RDW Plt Count Lymph % (Auto) [place] % (Auto) Lymph # [place] # Baso # Seg Neutrophils % Seg Neuts % (Manual) Lymphocytes % (Manual) Monocytes % (Manual) Eosinophils % (Manual) Basophils % (Manual) Nucleated RBC % Seg Neutrophils # Seg Neutrophils # Man Lymphocytes # (Manual) Monocytes # (Manual) Eosinophils # (Manual) Basophils # (Manual) PT INR Fibrinogen dRVVT Confirm Interp Factor V Activity POC ABG pH 7.288 L POC ABG pCO2 30.2 L 21.5 L POC ABG pO2 32 L 39 L ABG pO2 ABG HCO3 ABG Base Excess ABG Hemoglobin Oxyhemoglobin Sodium Potassium Chloride Carbon Dioxide BUN Creatinine Glucose POC Glucose 109 H Lactic Acid Calcium Ionized Calcium Phosphorus Magnesium Direct Bilirubin AST ALT Alkaline Phosphatase Lactate Dehydrogenase Troponin T C-Reactive Protein Total Protein Albumin Prealbumin Triglycerides Cholesterol LDL Cholesterol Direct HDL Cholesterol 25-OH Vitamin D Total PTH Intact Urine pH Urine WBC (Auto) Urine Creatinine Urine Total Protein Fluid Total Protein Vancomycin Trough Rheumatoid Factor Complement C4 Miscellaneous Test Crossmatch 09/25/16 09/25/16 09/25/16 04:20 04:20 04:20 WBC RBC 2.58 L Hgb 7.0 L Hct 21.0 L MCV MCH 27 L MCHC RDW 23.8 H Plt Count Lymph % (Auto) [place] % (Auto) Lymph # [place] # Baso # Seg Neutrophils % Seg Neuts % (Manual) Lymphocytes % (Manual) 12.0 L Monocytes % (Manual) Eosinophils % (Manual) 7.0 H Basophils % (Manual) 2.0 H Nucleated RBC % Seg Neutrophils # Seg Neutrophils # Man Lymphocytes # (Manual) 0.9 L Monocytes # (Manual) Eosinophils # (Manual) 0.5 H Basophils # (Manual) PT INR Fibrinogen dRVVT Confirm Interp Factor V Activity POC ABG pH POC ABG pCO2 POC ABG pO2 ABG pO2 ABG HCO3 ABG Base Excess ABG Hemoglobin Oxyhemoglobin Sodium Potassium Chloride Carbon Dioxide 15 L BUN 72 H Creatinine 3.8 H Glucose POC Glucose Lactic Acid Calcium 6.0 L Ionized Calcium Phosphorus 4.60 H Magnesium 1.60 L Direct Bilirubin AST ALT Alkaline Phosphatase Lactate Dehydrogenase Troponin T C-Reactive Protein Total Protein Albumin Prealbumin Triglycerides Cholesterol LDL Cholesterol Direct HDL Cholesterol 25-OH Vitamin D Total PTH Intact Urine pH Urine WBC (Auto) Urine Creatinine Urine Total Protein Fluid Total Protein Vancomycin Trough Rheumatoid Factor Complement C4 Miscellaneous Test Crossmatch 09/25/16 09/25/16 09/25/16 04:57 08:02 10:30 WBC RBC Hgb Hct MCV MCH MCHC RDW Plt Count Lymph % (Auto) [place] % (Auto) Lymph # [place] # Baso # Seg Neutrophils % Seg Neuts % (Manual) Lymphocytes % (Manual) Monocytes % (Manual) Eosinophils % (Manual) Basophils % (Manual) Nucleated RBC % Seg Neutrophils # Seg Neutrophils # Man Lymphocytes # (Manual) Monocytes # (Manual) Eosinophils # (Manual) Basophils # (Manual) PT INR Fibrinogen dRVVT Confirm Interp Factor V Activity POC ABG pH POC ABG pCO2 24.7 L POC ABG pO2 152 H ABG pO2 ABG HCO3 ABG Base Excess ABG Hemoglobin Oxyhemoglobin Sodium Potassium Chloride Carbon Dioxide BUN Creatinine Glucose POC Glucose 113 H Lactic Acid Calcium Ionized Calcium Phosphorus Magnesium Direct Bilirubin AST ALT Alkaline Phosphatase Lactate Dehydrogenase Troponin T C-Reactive Protein Total Protein Albumin Prealbumin Triglycerides Cholesterol LDL Cholesterol Direct HDL Cholesterol 25-OH Vitamin D Total PTH Intact Urine pH Urine WBC (Auto) Urine Creatinine Urine Total Protein Fluid Total Protein Vancomycin Trough Rheumatoid Factor Complement C4 Miscellaneous Test Crossmatch See Detail 09/25/16 09/25/16 09/25/16 12:05 17:44 23:47 WBC RBC Hgb Hct MCV MCH MCHC RDW Plt Count Lymph % (Auto) [place] % (Auto) Lymph # [place] # Baso # Seg Neutrophils % Seg Neuts % (Manual) Lymphocytes % (Manual) Monocytes % (Manual) Eosinophils % (Manual) Basophils % (Manual) Nucleated RBC % Seg Neutrophils # Seg Neutrophils # Man Lymphocytes # (Manual) Monocytes # (Manual) Eosinophils # (Manual) Basophils # (Manual) PT INR Fibrinogen dRVVT Confirm Interp Factor V Activity POC ABG pH POC ABG pCO2 POC ABG pO2 ABG pO2 ABG HCO3 ABG Base Excess ABG Hemoglobin Oxyhemoglobin Sodium Potassium Chloride Carbon Dioxide BUN Creatinine Glucose POC Glucose 117 H 119 H 150 H Lactic Acid Calcium Ionized Calcium Phosphorus Magnesium Direct Bilirubin AST ALT Alkaline Phosphatase Lactate Dehydrogenase Troponin T C-Reactive Protein Total Protein Albumin Prealbumin Triglycerides Cholesterol LDL Cholesterol Direct HDL Cholesterol 25-OH Vitamin D Total PTH Intact Urine pH Urine WBC (Auto) Urine Creatinine Urine Total Protein Fluid Total Protein Vancomycin Trough Rheumatoid Factor Complement C4 Miscellaneous Test Crossmatch 09/26/16 09/26/16 09/26/16 04:25 04:25 04:25 WBC RBC 2.65 L Hgb 7.4 L Hct 21.6 L MCV MCH MCHC RDW 22.5 H Plt Count Lymph % (Auto) [place] % (Auto) Lymph # [place] # Baso # Seg Neutrophils % Seg Neuts % (Manual) Lymphocytes % (Manual) 6.0 L Monocytes % (Manual) Eosinophils % (Manual) 11.0 H Basophils % (Manual) Nucleated RBC % Seg Neutrophils # Seg Neutrophils # Man Lymphocytes # (Manual) 0.4 L Monocytes # (Manual) Eosinophils # (Manual) 0.6 H Basophils # (Manual) PT INR Fibrinogen dRVVT Confirm Interp Factor V Activity POC ABG pH POC ABG pCO2 POC ABG pO2 ABG pO2 ABG HCO3 ABG Base Excess ABG Hemoglobin Oxyhemoglobin Sodium Potassium Chloride 97.0 L Carbon Dioxide 19 L BUN 43 H Creatinine 2.6 H Glucose 130 H POC Glucose Lactic Acid 4.40 H* Calcium 6.7 L Ionized Calcium Phosphorus Magnesium Direct Bilirubin AST ALT Alkaline Phosphatase Lactate Dehydrogenase Troponin T C-Reactive Protein Total Protein Albumin Prealbumin Triglycerides Cholesterol LDL Cholesterol Direct HDL Cholesterol 25-OH Vitamin D Total PTH Intact Urine pH Urine WBC (Auto) Urine Creatinine Urine Total Protein Fluid Total Protein Vancomycin Trough Rheumatoid Factor Complement C4 Miscellaneous Test Crossmatch 09/26/16 09/26/16 09/26/16 05:20 11:44 12:12 WBC RBC Hgb Hct MCV MCH MCHC RDW Plt Count Lymph % (Auto) [place] % (Auto) Lymph # [place] # Baso # Seg Neutrophils % Seg Neuts % (Manual) Lymphocytes % (Manual) Monocytes % (Manual) Eosinophils % (Manual) Basophils % (Manual) Nucleated RBC % Seg Neutrophils # Seg Neutrophils # Man Lymphocytes # (Manual) Monocytes # (Manual) Eosinophils # (Manual) Basophils # (Manual) PT INR Fibrinogen dRVVT Confirm Interp Factor V Activity POC ABG pH POC ABG pCO2 27.0 L POC ABG pO2 69 L ABG pO2 ABG HCO3 ABG Base Excess ABG Hemoglobin Oxyhemoglobin Sodium Potassium Chloride Carbon Dioxide BUN Creatinine Glucose POC Glucose 121 H 128 H Lactic Acid Calcium Ionized Calcium Phosphorus Magnesium Direct Bilirubin AST ALT Alkaline Phosphatase Lactate Dehydrogenase Troponin T C-Reactive Protein Total Protein Albumin Prealbumin Triglycerides Cholesterol LDL Cholesterol Direct HDL Cholesterol 25-OH Vitamin D Total PTH Intact Urine pH Urine WBC (Auto) Urine Creatinine Urine Total Protein Fluid Total Protein Vancomycin Trough Rheumatoid Factor Complement C4 Miscellaneous Test Crossmatch 09/26/16 09/26/16 09/27/16 18:31 23:40 08:20 WBC RBC Hgb Hct MCV MCH MCHC RDW Plt Count Lymph % (Auto) [place] % (Auto) Lymph # [place] # Baso # Seg Neutrophils % Seg Neuts % (Manual) Lymphocytes % (Manual) Monocytes % (Manual) Eosinophils % (Manual) Basophils % (Manual) Nucleated RBC % Seg Neutrophils # Seg Neutrophils # Man Lymphocytes # (Manual) Monocytes # (Manual) Eosinophils # (Manual) Basophils # (Manual) PT INR Fibrinogen dRVVT Confirm Interp Factor V Activity POC ABG pH POC ABG pCO2 POC ABG pO2 ABG pO2 ABG HCO3 ABG Base Excess ABG Hemoglobin Oxyhemoglobin Sodium Potassium Chloride Carbon Dioxide BUN Creatinine Glucose POC Glucose 120 H 133 H Lactic Acid 4.10 H* Calcium Ionized Calcium Phosphorus Magnesium Direct Bilirubin AST ALT Alkaline Phosphatase Lactate Dehydrogenase Troponin T C-Reactive Protein Total Protein Albumin Prealbumin Triglycerides Cholesterol LDL Cholesterol Direct HDL Cholesterol 25-OH Vitamin D Total PTH Intact Urine pH Urine WBC (Auto) Urine Creatinine Urine Total Protein Fluid Total Protein Vancomycin Trough Rheumatoid Factor Complement C4 Miscellaneous Test Crossmatch 09/27/16 09/27/16 09/27/16 11:23 15:00 18:15 WBC RBC Hgb Hct MCV MCH MCHC RDW Plt Count Lymph % (Auto) [place] % (Auto) Lymph # [place] # Baso # Seg Neutrophils % Seg Neuts % (Manual) Lymphocytes % (Manual) Monocytes % (Manual) Eosinophils % (Manual) Basophils % (Manual) Nucleated RBC % Seg Neutrophils # Seg Neutrophils # Man Lymphocytes # (Manual) Monocytes # (Manual) Eosinophils # (Manual) Basophils # (Manual) PT INR Fibrinogen dRVVT Confirm Interp Factor V Activity POC ABG pH 7.459 H POC ABG pCO2 27.1 L POC ABG pO2 140 H ABG pO2 ABG HCO3 ABG Base Excess ABG Hemoglobin Oxyhemoglobin Sodium Potassium Chloride Carbon Dioxide BUN Creatinine Glucose POC Glucose 114 H 127 H Lactic Acid Calcium Ionized Calcium Phosphorus Magnesium Direct Bilirubin AST ALT Alkaline Phosphatase Lactate Dehydrogenase Troponin T C-Reactive Protein Total Protein Albumin Prealbumin Triglycerides Cholesterol LDL Cholesterol Direct HDL Cholesterol 25-OH Vitamin D Total PTH Intact Urine pH Urine WBC (Auto) Urine Creatinine Urine Total Protein Fluid Total Protein Vancomycin Trough Rheumatoid Factor Complement C4 Miscellaneous Test Crossmatch 09/27/16 09/27/16 09/28/16 Unknown Unknown 03:45 WBC RBC 2.49 L Hgb 6.8 L Hct 20.7 L MCV MCH 27 L MCHC RDW 22.1 H Plt Count Lymph % (Auto) [place] % (Auto) Lymph # [place] # Baso # Seg Neutrophils % Seg Neuts % (Manual) 32.0 L Lymphocytes % (Manual) 12.0 L Monocytes % (Manual) 11.0 H Eosinophils % (Manual) 10.0 H Basophils % (Manual) Nucleated RBC % Seg Neutrophils # Seg Neutrophils # Man Lymphocytes # (Manual) 1.0 L Monocytes # (Manual) 0.9 H Eosinophils # (Manual) 0.8 H Basophils # (Manual) PT INR Fibrinogen dRVVT Confirm Interp Factor V Activity POC ABG pH POC ABG pCO2 POC ABG pO2 ABG pO2 ABG HCO3 ABG Base Excess ABG Hemoglobin Oxyhemoglobin Sodium 135 L 135 L Potassium 3.5 L Chloride 93.6 L 94.4 L Carbon Dioxide 17 L 21 L BUN 45 H 28 H Creatinine 3.3 H 2.5 H Glucose 106 H POC Glucose Lactic Acid Calcium 7.3 L 7.1 L Ionized Calcium Phosphorus Magnesium Direct Bilirubin AST ALT Alkaline Phosphatase Lactate Dehydrogenase Troponin T C-Reactive Protein Total Protein Albumin Prealbumin Triglycerides Cholesterol LDL Cholesterol Direct HDL Cholesterol 25-OH Vitamin D Total PTH Intact Urine pH Urine WBC (Auto) Urine Creatinine Urine Total Protein Fluid Total Protein Vancomycin Trough Rheumatoid Factor Complement C4 Miscellaneous Test Crossmatch 09/28/16 09/28/16 09/28/16 03:45 07:25 11:58 WBC 13.3 H RBC 3.01 L Hgb 8.4 L Hct 25.0 L MCV MCH MCHC RDW 20.5 H Plt Count 128 L Lymph % (Auto) [place] % (Auto) Lymph # [place] # Baso # Seg Neutrophils % Seg Neuts % (Manual) Lymphocytes % (Manual) 7.0 L Monocytes % (Manual) Eosinophils % (Manual) 6.0 H Basophils % (Manual) Nucleated RBC % Seg Neutrophils # Seg Neutrophils # Man Lymphocytes # (Manual) 0.9 L Monocytes # (Manual) Eosinophils # (Manual) 0.8 H Basophils # (Manual) PT INR Fibrinogen dRVVT Confirm Interp Factor V Activity POC ABG pH POC ABG pCO2 POC ABG pO2 ABG pO2 ABG HCO3 ABG Base Excess ABG Hemoglobin Oxyhemoglobin Sodium Potassium Chloride Carbon Dioxide BUN Creatinine Glucose POC Glucose 121 H Lactic Acid 4.50 H* Calcium Ionized Calcium Phosphorus Magnesium Direct Bilirubin AST ALT Alkaline Phosphatase Lactate Dehydrogenase Troponin T C-Reactive Protein Total Protein Albumin Prealbumin Triglycerides Cholesterol LDL Cholesterol Direct HDL Cholesterol 25-OH Vitamin D Total PTH Intact Urine pH Urine WBC (Auto) Urine Creatinine Urine Total Protein Fluid Total Protein Vancomycin Trough Rheumatoid Factor Complement C4 Miscellaneous Test Crossmatch 09/29/16 09/29/16 09/29/16 06:45 06:45 06:45 WBC 14.9 H RBC 2.74 L Hgb 7.6 L Hct 23.2 L MCV MCH MCHC RDW 20.5 H Plt Count 81 L Lymph % (Auto) [place] % (Auto) Lymph # [place] # Baso # Seg Neutrophils % Seg Neuts % (Manual) 81.0 H Lymphocytes % (Manual) 4.0 L Monocytes % (Manual) Eosinophils % (Manual) Basophils % (Manual) Nucleated RBC % Seg Neutrophils # Seg Neutrophils # Man 12.1 H Lymphocytes # (Manual) 0.6 L Monocytes # (Manual) Eosinophils # (Manual) Basophils # (Manual) PT INR Fibrinogen dRVVT Confirm Interp Factor V Activity POC ABG pH POC ABG pCO2 POC ABG pO2 ABG pO2 ABG HCO3 ABG Base Excess ABG Hemoglobin Oxyhemoglobin Sodium 133 L Potassium 3.4 L Chloride 92.5 L Carbon Dioxide 21 L BUN 33 H Creatinine 3.0 H Glucose POC Glucose Lactic Acid Calcium 6.6 L Ionized Calcium Phosphorus Magnesium 1.40 L Direct Bilirubin 0.9 H AST ALT Alkaline Phosphatase Lactate Dehydrogenase Troponin T C-Reactive Protein Total Protein 4.3 L Albumin 1.3 L Prealbumin Triglycerides Cholesterol LDL Cholesterol Direct HDL Cholesterol 25-OH Vitamin D Total PTH Intact Urine pH Urine WBC (Auto) Urine Creatinine Urine Total Protein Fluid Total Protein Vancomycin Trough Rheumatoid Factor Complement C4 Miscellaneous Test Crossmatch 09/29/16 09/29/16 09/30/16 17:52 20:12 00:07 WBC RBC Hgb Hct MCV MCH MCHC RDW Plt Count Lymph % (Auto) [place] % (Auto) Lymph # [place] # Baso # Seg Neutrophils % Seg Neuts % (Manual) Lymphocytes % (Manual) Monocytes % (Manual) Eosinophils % (Manual) Basophils % (Manual) Nucleated RBC % Seg Neutrophils # Seg Neutrophils # Man Lymphocytes # (Manual) Monocytes # (Manual) Eosinophils # (Manual) Basophils # (Manual) PT INR Fibrinogen dRVVT Confirm Interp Factor V Activity POC ABG pH POC ABG pCO2 POC ABG pO2 ABG pO2 ABG HCO3 ABG Base Excess ABG Hemoglobin Oxyhemoglobin Sodium Potassium Chloride Carbon Dioxide BUN Creatinine Glucose POC Glucose 50 L 51 L Lactic Acid Calcium Ionized Calcium Phosphorus Magnesium Direct Bilirubin AST ALT Alkaline Phosphatase Lactate Dehydrogenase Troponin T 0.204 H* C-Reactive Protein Total Protein Albumin Prealbumin Triglycerides Cholesterol 31 L LDL Cholesterol Direct 4 L HDL Cholesterol 3 L 25-OH Vitamin D Total PTH Intact Urine pH Urine WBC (Auto) Urine Creatinine Urine Total Protein Fluid Total Protein Vancomycin Trough Rheumatoid Factor Complement C4 Miscellaneous Test Crossmatch 09/30/16 09/30/16 09/30/16 01:30 05:15 06:10 WBC RBC Hgb Hct MCV MCH MCHC RDW Plt Count Lymph % (Auto) [place] % (Auto) Lymph # [place] # Baso # Seg Neutrophils % Seg Neuts % (Manual) Lymphocytes % (Manual) Monocytes % (Manual) Eosinophils % (Manual) Basophils % (Manual) Nucleated RBC % Seg Neutrophils # Seg Neutrophils # Man Lymphocytes # (Manual) Monocytes # (Manual) Eosinophils # (Manual) Basophils # (Manual) PT INR Fibrinogen dRVVT Confirm Interp Factor V Activity POC ABG pH POC ABG pCO2 POC ABG pO2 ABG pO2 ABG HCO3 ABG Base Excess ABG Hemoglobin Oxyhemoglobin Sodium 133 L Potassium 3.2 L Chloride 93.2 L Carbon Dioxide 19 L BUN 36 H Creatinine 3.2 H Glucose 104 H POC Glucose 167 H 146 H Lactic Acid Calcium 6.4 L Ionized Calcium Phosphorus Magnesium 1.60 L Direct Bilirubin AST ALT Alkaline Phosphatase Lactate Dehydrogenase Troponin T C-Reactive Protein Total Protein Albumin Prealbumin Triglycerides Cholesterol LDL Cholesterol Direct HDL Cholesterol 25-OH Vitamin D Total PTH Intact Urine pH Urine WBC (Auto) Urine Creatinine Urine Total Protein Fluid Total Protein Vancomycin Trough Rheumatoid Factor Complement C4 Miscellaneous Test Crossmatch 09/30/16 09/30/16 09/30/16 11:26 13:39 18:38 WBC RBC Hgb Hct MCV MCH MCHC RDW Plt Count Lymph % (Auto) [place] % (Auto) Lymph # [place] # Baso # Seg Neutrophils % Seg Neuts % (Manual) Lymphocytes % (Manual) Monocytes % (Manual) Eosinophils % (Manual) Basophils % (Manual) Nucleated RBC % Seg Neutrophils # Seg Neutrophils # Man Lymphocytes # (Manual) Monocytes # (Manual) Eosinophils # (Manual) Basophils # (Manual) PT INR Fibrinogen dRVVT Confirm Interp Factor V Activity POC ABG pH 7.479 H POC ABG pCO2 29.8 L POC ABG pO2 117 H ABG pO2 ABG HCO3 ABG Base Excess ABG Hemoglobin Oxyhemoglobin Sodium Potassium Chloride Carbon Dioxide BUN Creatinine Glucose POC Glucose 140 H 122 H Lactic Acid Calcium Ionized Calcium Phosphorus Magnesium Direct Bilirubin AST ALT Alkaline Phosphatase Lactate Dehydrogenase Troponin T C-Reactive Protein Total Protein Albumin Prealbumin Triglycerides Cholesterol LDL Cholesterol Direct HDL Cholesterol 25-OH Vitamin D Total PTH Intact Urine pH Urine WBC (Auto) Urine Creatinine Urine Total Protein Fluid Total Protein Vancomycin Trough Rheumatoid Factor Complement C4 Miscellaneous Test Crossmatch 10/01/16 10/01/16 10/01/16 06:00 06:00 12:37 WBC 12.6 H RBC 2.75 L Hgb 7.3 L Hct 23.3 L MCV MCH 27 L MCHC RDW 20.6 H Plt Count 72 L Lymph % (Auto) [place] % (Auto) Lymph # [place] # Baso # Seg Neutrophils % Seg Neuts % (Manual) 31.0 L Lymphocytes % (Manual) 8.0 L Monocytes % (Manual) Eosinophils % (Manual) Basophils % (Manual) Nucleated RBC % 3.0 H Seg Neutrophils # Seg Neutrophils # Man Lymphocytes # (Manual) 1.0 L Monocytes # (Manual) Eosinophils # (Manual) Basophils # (Manual) PT INR Fibrinogen dRVVT Confirm Interp Factor V Activity POC ABG pH POC ABG pCO2 POC ABG pO2 ABG pO2 ABG HCO3 ABG Base Excess ABG Hemoglobin Oxyhemoglobin Sodium 127 L Potassium Chloride 86.8 L Carbon Dioxide 20 L BUN 42 H Creatinine 3.5 H Glucose POC Glucose 65 L Lactic Acid Calcium 7.0 L Ionized Calcium Phosphorus Magnesium Direct Bilirubin AST ALT Alkaline Phosphatase Lactate Dehydrogenase Troponin T C-Reactive Protein Total Protein Albumin Prealbumin Triglycerides Cholesterol LDL Cholesterol Direct HDL Cholesterol 25-OH Vitamin D Total PTH Intact Urine pH Urine WBC (Auto) Urine Creatinine Urine Total Protein Fluid Total Protein Vancomycin Trough Rheumatoid Factor Complement C4 Miscellaneous Test Crossmatch 10/01/16 10/01/16 10/02/16 17:39 23:32 00:59 WBC RBC Hgb Hct MCV MCH MCHC RDW Plt Count Lymph % (Auto) [place] % (Auto) Lymph # [place] # Baso # Seg Neutrophils % Seg Neuts % (Manual) Lymphocytes % (Manual) Monocytes % (Manual) Eosinophils % (Manual) Basophils % (Manual) Nucleated RBC % Seg Neutrophils # Seg Neutrophils # Man Lymphocytes # (Manual) Monocytes # (Manual) Eosinophils # (Manual) Basophils # (Manual) PT INR Fibrinogen dRVVT Confirm Interp Factor V Activity POC ABG pH POC ABG pCO2 POC ABG pO2 ABG pO2 ABG HCO3 ABG Base Excess ABG Hemoglobin Oxyhemoglobin Sodium Potassium Chloride Carbon Dioxide BUN Creatinine Glucose POC Glucose 107 H 52 L 145 H Lactic Acid Calcium Ionized Calcium Phosphorus Magnesium Direct Bilirubin AST ALT Alkaline Phosphatase Lactate Dehydrogenase Troponin T C-Reactive Protein Total Protein Albumin Prealbumin Triglycerides Cholesterol LDL Cholesterol Direct HDL Cholesterol 25-OH Vitamin D Total PTH Intact Urine pH Urine WBC (Auto) Urine Creatinine Urine Total Protein Fluid Total Protein Vancomycin Trough Rheumatoid Factor Complement C4 Miscellaneous Test Crossmatch 10/02/16 10/02/16 10/02/16 10:30 10:50 10:50 WBC 14.7 H RBC 2.76 L Hgb 7.4 L Hct 23.6 L MCV MCH 27 L MCHC RDW 20.2 H Plt Count 79 L Lymph % (Auto) [place] % (Auto) Lymph # [place] # Baso # Seg Neutrophils % Seg Neuts % (Manual) 86.0 H Lymphocytes % (Manual) 6.0 L Monocytes % (Manual) Eosinophils % (Manual) Basophils % (Manual) Nucleated RBC % Seg Neutrophils # Seg Neutrophils # Man 12.6 H Lymphocytes # (Manual) 0.9 L Monocytes # (Manual) Eosinophils # (Manual) Basophils # (Manual) PT INR Fibrinogen dRVVT Confirm Interp Factor V Activity POC ABG pH 7.486 H POC ABG pCO2 30.1 L POC ABG pO2 108 H ABG pO2 ABG HCO3 ABG Base Excess ABG Hemoglobin Oxyhemoglobin Sodium 131 L Potassium 3.4 L Chloride 89.9 L Carbon Dioxide BUN 26 H Creatinine 2.6 H Glucose POC Glucose Lactic Acid Calcium 7.0 L Ionized Calcium Phosphorus Magnesium Direct Bilirubin AST ALT Alkaline Phosphatase Lactate Dehydrogenase Troponin T C-Reactive Protein Total Protein Albumin Prealbumin Triglycerides Cholesterol LDL Cholesterol Direct HDL Cholesterol 25-OH Vitamin D Total PTH Intact Urine pH Urine WBC (Auto) Urine Creatinine Urine Total Protein Fluid Total Protein Vancomycin Trough Rheumatoid Factor Complement C4 Miscellaneous Test Crossmatch 10/02/16 10/03/16 10/03/16 23:45 00:45 05:10 WBC 12.9 H RBC 2.77 L Hgb 7.6 L Hct 23.7 L MCV MCH 27 L MCHC RDW 19.7 H Plt Count 89 L Lymph % (Auto) [place] % (Auto) Lymph # [place] # Baso # Seg Neutrophils % Seg Neuts % (Manual) Lymphocytes % (Manual) 8.0 L Monocytes % (Manual) Eosinophils % (Manual) Basophils % (Manual) Nucleated RBC % Seg Neutrophils # 11.9 H Seg Neutrophils # Man Lymphocytes # (Manual) 1.0 L Monocytes # (Manual) Eosinophils # (Manual) Basophils # (Manual) PT INR Fibrinogen dRVVT Confirm Interp Factor V Activity POC ABG pH POC ABG pCO2 POC ABG pO2 ABG pO2 ABG HCO3 ABG Base Excess ABG Hemoglobin Oxyhemoglobin Sodium Potassium Chloride Carbon Dioxide BUN Creatinine Glucose POC Glucose 55 L 199 H Lactic Acid Calcium Ionized Calcium Phosphorus Magnesium Direct Bilirubin AST ALT Alkaline Phosphatase Lactate Dehydrogenase Troponin T C-Reactive Protein Total Protein Albumin Prealbumin Triglycerides Cholesterol LDL Cholesterol Direct HDL Cholesterol 25-OH Vitamin D Total PTH Intact Urine pH Urine WBC (Auto) Urine Creatinine Urine Total Protein Fluid Total Protein Vancomycin Trough Rheumatoid Factor Complement C4 Miscellaneous Test Crossmatch 10/03/16 10/03/16 10/03/16 05:10 12:14 13:18 WBC RBC Hgb Hct MCV MCH MCHC RDW Plt Count Lymph % (Auto) [place] % (Auto) Lymph # [place] # Baso # Seg Neutrophils % Seg Neuts % (Manual) Lymphocytes % (Manual) Monocytes % (Manual) Eosinophils % (Manual) Basophils % (Manual) Nucleated RBC % Seg Neutrophils # Seg Neutrophils # Man Lymphocytes # (Manual) Monocytes # (Manual) Eosinophils # (Manual) Basophils # (Manual) PT INR Fibrinogen dRVVT Confirm Interp Factor V Activity POC ABG pH POC ABG pCO2 POC ABG pO2 ABG pO2 ABG HCO3 ABG Base Excess ABG Hemoglobin Oxyhemoglobin Sodium 129 L Potassium 3.3 L Chloride 88.8 L Carbon Dioxide 20 L BUN 29 H Creatinine 2.8 H Glucose POC Glucose 68 L 127 H Lactic Acid Calcium 7.2 L Ionized Calcium Phosphorus Magnesium Direct Bilirubin AST ALT Alkaline Phosphatase Lactate Dehydrogenase Troponin T C-Reactive Protein Total Protein Albumin Prealbumin Triglycerides Cholesterol LDL Cholesterol Direct HDL Cholesterol 25-OH Vitamin D Total PTH Intact Urine pH Urine WBC (Auto) Urine Creatinine Urine Total Protein Fluid Total Protein Vancomycin Trough Rheumatoid Factor Complement C4 Miscellaneous Test Crossmatch 10/03/16 10/03/16 10/03/16 14:42 18:21 19:09 WBC RBC Hgb Hct MCV MCH MCHC RDW Plt Count Lymph % (Auto) [place] % (Auto) Lymph # [place] # Baso # Seg Neutrophils % Seg Neuts % (Manual) Lymphocytes % (Manual) Monocytes % (Manual) Eosinophils % (Manual) Basophils % (Manual) Nucleated RBC % Seg Neutrophils # Seg Neutrophils # Man Lymphocytes # (Manual) Monocytes # (Manual) Eosinophils # (Manual) Basophils # (Manual) PT INR Fibrinogen dRVVT Confirm Interp Factor V Activity POC ABG pH 7.499 H POC ABG pCO2 28.4 L POC ABG pO2 44 L ABG pO2 ABG HCO3 ABG Base Excess ABG Hemoglobin Oxyhemoglobin Sodium Potassium Chloride Carbon Dioxide BUN Creatinine Glucose POC Glucose 64 L 205 H Lactic Acid Calcium Ionized Calcium Phosphorus Magnesium Direct Bilirubin AST ALT Alkaline Phosphatase Lactate Dehydrogenase Troponin T C-Reactive Protein Total Protein Albumin Prealbumin Triglycerides Cholesterol LDL Cholesterol Direct HDL Cholesterol 25-OH Vitamin D Total PTH Intact Urine pH Urine WBC (Auto) Urine Creatinine Urine Total Protein Fluid Total Protein Vancomycin Trough Rheumatoid Factor Complement C4 Miscellaneous Test Crossmatch 10/03/16 10/04/16 10/04/16 23:33 04:18 06:30 WBC RBC 2.54 L Hgb 7.1 L Hct 21.7 L MCV MCH MCHC RDW 19.5 H Plt Count 76 L Lymph % (Auto) [place] % (Auto) Lymph # [place] # Baso # Seg Neutrophils % Seg Neuts % (Manual) 88.0 H Lymphocytes % (Manual) 6.0 L Monocytes % (Manual) Eosinophils % (Manual) Basophils % (Manual) Nucleated RBC % Seg Neutrophils # Seg Neutrophils # Man 8.8 H Lymphocytes # (Manual) 0.6 L Monocytes # (Manual) Eosinophils # (Manual) Basophils # (Manual) PT INR Fibrinogen dRVVT Confirm Interp Factor V Activity POC ABG pH 7.461 H POC ABG pCO2 33.6 L POC ABG pO2 211 H ABG pO2 ABG HCO3 ABG Base Excess ABG Hemoglobin Oxyhemoglobin Sodium Potassium Chloride Carbon Dioxide BUN Creatinine Glucose POC Glucose 136 H Lactic Acid Calcium Ionized Calcium Phosphorus Magnesium Direct Bilirubin AST ALT Alkaline Phosphatase Lactate Dehydrogenase Troponin T C-Reactive Protein Total Protein Albumin Prealbumin Triglycerides Cholesterol LDL Cholesterol Direct HDL Cholesterol 25-OH Vitamin D Total PTH Intact Urine pH Urine WBC (Auto) Urine Creatinine Urine Total Protein Fluid Total Protein Vancomycin Trough Rheumatoid Factor Complement C4 Miscellaneous Test Crossmatch 10/04/16 10/04/16 10/04/16 06:30 11:45 17:54 WBC RBC Hgb Hct MCV MCH MCHC RDW Plt Count Lymph % (Auto) [place] % (Auto) Lymph # [place] # Baso # Seg Neutrophils % Seg Neuts % (Manual) Lymphocytes % (Manual) Monocytes % (Manual) Eosinophils % (Manual) Basophils % (Manual) Nucleated RBC % Seg Neutrophils # Seg Neutrophils # Man Lymphocytes # (Manual) Monocytes # (Manual) Eosinophils # (Manual) Basophils # (Manual) PT INR Fibrinogen dRVVT Confirm Interp Factor V Activity POC ABG pH POC ABG pCO2 POC ABG pO2 ABG pO2 ABG HCO3 ABG Base Excess ABG Hemoglobin Oxyhemoglobin Sodium 128 L Potassium Chloride 87.4 L Carbon Dioxide 20 L BUN 34 H Creatinine 2.9 H Glucose 127 H POC Glucose 158 H 160 H Lactic Acid Calcium 7.4 L Ionized Calcium Phosphorus Magnesium Direct Bilirubin AST ALT Alkaline Phosphatase Lactate Dehydrogenase Troponin T C-Reactive Protein Total Protein Albumin Prealbumin Triglycerides Cholesterol LDL Cholesterol Direct HDL Cholesterol 25-OH Vitamin D Total PTH Intact Urine pH Urine WBC (Auto) Urine Creatinine Urine Total Protein Fluid Total Protein Vancomycin Trough Rheumatoid Factor Complement C4 Miscellaneous Test Crossmatch 10/04/16 10/05/16 10/05/16 23:25 04:30 05:00 WBC RBC 2.64 L Hgb 7.5 L Hct 22.6 L MCV MCH MCHC RDW 19.3 H Plt Count 80 L Lymph % (Auto) [place] % (Auto) Lymph # [place] # Baso # Seg Neutrophils % Seg Neuts % (Manual) Lymphocytes % (Manual) 12.0 L Monocytes % (Manual) Eosinophils % (Manual) Basophils % (Manual) Nucleated RBC % Seg Neutrophils # Seg Neutrophils # Man Lymphocytes # (Manual) Monocytes # (Manual) Eosinophils # (Manual) Basophils # (Manual) PT INR Fibrinogen dRVVT Confirm Interp Factor V Activity POC ABG pH 7.475 H POC ABG pCO2 33.3 L POC ABG pO2 140 H ABG pO2 ABG HCO3 ABG Base Excess ABG Hemoglobin Oxyhemoglobin Sodium Potassium Chloride Carbon Dioxide BUN Creatinine Glucose POC Glucose 141 H Lactic Acid Calcium Ionized Calcium Phosphorus Magnesium Direct Bilirubin AST ALT Alkaline Phosphatase Lactate Dehydrogenase Troponin T C-Reactive Protein Total Protein Albumin Prealbumin Triglycerides Cholesterol LDL Cholesterol Direct HDL Cholesterol 25-OH Vitamin D Total PTH Intact Urine pH Urine WBC (Auto) Urine Creatinine Urine Total Protein Fluid Total Protein Vancomycin Trough Rheumatoid Factor Complement C4 Miscellaneous Test Crossmatch 10/05/16 10/05/16 10/05/16 05:00 05:09 12:58 WBC RBC Hgb Hct MCV MCH MCHC RDW Plt Count Lymph % (Auto) [place] % (Auto) Lymph # [place] # Baso # Seg Neutrophils % Seg Neuts % (Manual) Lymphocytes % (Manual) Monocytes % (Manual) Eosinophils % (Manual) Basophils % (Manual) Nucleated RBC % Seg Neutrophils # Seg Neutrophils # Man Lymphocytes # (Manual) Monocytes # (Manual) Eosinophils # (Manual) Basophils # (Manual) PT INR Fibrinogen dRVVT Confirm Interp Factor V Activity POC ABG pH POC ABG pCO2 POC ABG pO2 ABG pO2 ABG HCO3 ABG Base Excess ABG Hemoglobin Oxyhemoglobin Sodium 131 L Potassium Chloride 94.0 L Carbon Dioxide 20 L BUN 22 H Creatinine 2.0 H Glucose 123 H POC Glucose 166 H 179 H Lactic Acid Calcium 7.7 L Ionized Calcium Phosphorus 2.20 L D Magnesium Direct Bilirubin AST ALT Alkaline Phosphatase Lactate Dehydrogenase Troponin T C-Reactive Protein Total Protein Albumin Prealbumin Triglycerides Cholesterol LDL Cholesterol Direct HDL Cholesterol 25-OH Vitamin D Total PTH Intact Urine pH Urine WBC (Auto) Urine Creatinine Urine Total Protein Fluid Total Protein Vancomycin Trough Rheumatoid Factor Complement C4 Miscellaneous Test Crossmatch 10/05/16 10/05/16 10/05/16 15:50 18:53 23:12 WBC RBC Hgb Hct MCV MCH MCHC RDW Plt Count Lymph % (Auto) [place] % (Auto) Lymph # [place] # Baso # Seg Neutrophils % Seg Neuts % (Manual) Lymphocytes % (Manual) Monocytes % (Manual) Eosinophils % (Manual) Basophils % (Manual) Nucleated RBC % Seg Neutrophils # Seg Neutrophils # Man Lymphocytes # (Manual) Monocytes # (Manual) Eosinophils # (Manual) Basophils # (Manual) PT INR Fibrinogen dRVVT Confirm Interp Factor V Activity POC ABG pH POC ABG pCO2 POC ABG pO2 ABG pO2 ABG HCO3 ABG Base Excess ABG Hemoglobin Oxyhemoglobin Sodium Potassium Chloride Carbon Dioxide BUN Creatinine Glucose POC Glucose 150 H 164 H Lactic Acid Calcium Ionized Calcium Phosphorus Magnesium Direct Bilirubin AST ALT Alkaline Phosphatase Lactate Dehydrogenase Troponin T C-Reactive Protein Total Protein Albumin Prealbumin Triglycerides Cholesterol LDL Cholesterol Direct HDL Cholesterol 25-OH Vitamin D Total PTH Intact Urine pH Urine WBC (Auto) Urine Creatinine Urine Total Protein Fluid Total Protein Vancomycin Trough Rheumatoid Factor Complement C4 Miscellaneous Test Crossmatch See Detail 10/06/16 10/06/16 10/06/16 03:50 03:50 04:53 WBC RBC 3.00 L Hgb 8.6 L Hct 25.8 L MCV MCH MCHC RDW 17.9 H Plt Count 65 L Lymph % (Auto) [place] % (Auto) Lymph # [place] # Baso # Seg Neutrophils % Seg Neuts % (Manual) 30.0 L Lymphocytes % (Manual) 5.0 L Monocytes % (Manual) Eosinophils % (Manual) Basophils % (Manual) Nucleated RBC % Seg Neutrophils # Seg Neutrophils # Man Lymphocytes # (Manual) 0.4 L Monocytes # (Manual) Eosinophils # (Manual) Basophils # (Manual) PT INR Fibrinogen dRVVT Confirm Interp Factor V Activity POC ABG pH 7.310 L POC ABG pCO2 49.0 H POC ABG pO2 ABG pO2 ABG HCO3 ABG Base Excess ABG Hemoglobin Oxyhemoglobin Sodium 133 L Potassium Chloride 95.9 L Carbon Dioxide BUN 26 H Creatinine 2.0 H Glucose 116 H POC Glucose Lactic Acid Calcium 7.8 L Ionized Calcium Phosphorus Magnesium Direct Bilirubin AST ALT Alkaline Phosphatase Lactate Dehydrogenase Troponin T C-Reactive Protein Total Protein Albumin Prealbumin Triglycerides Cholesterol LDL Cholesterol Direct HDL Cholesterol 25-OH Vitamin D Total PTH Intact Urine pH Urine WBC (Auto) Urine Creatinine Urine Total Protein Fluid Total Protein Vancomycin Trough Rheumatoid Factor Complement C4 Miscellaneous Test Crossmatch 10/06/16 10/06/16 10/06/16 05:23 11:52 18:34 WBC RBC Hgb Hct MCV MCH MCHC RDW Plt Count Lymph % (Auto) [place] % (Auto) Lymph # [place] # Baso # Seg Neutrophils % Seg Neuts % (Manual) Lymphocytes % (Manual) Monocytes % (Manual) Eosinophils % (Manual) Basophils % (Manual) Nucleated RBC % Seg Neutrophils # Seg Neutrophils # Man Lymphocytes # (Manual) Monocytes # (Manual) Eosinophils # (Manual) Basophils # (Manual) PT INR Fibrinogen dRVVT Confirm Interp Factor V Activity POC ABG pH POC ABG pCO2 POC ABG pO2 ABG pO2 ABG HCO3 ABG Base Excess ABG Hemoglobin Oxyhemoglobin Sodium Potassium Chloride Carbon Dioxide BUN Creatinine Glucose POC Glucose 126 H 116 H 129 H Lactic Acid Calcium Ionized Calcium Phosphorus Magnesium Direct Bilirubin AST ALT Alkaline Phosphatase Lactate Dehydrogenase Troponin T C-Reactive Protein Total Protein Albumin Prealbumin Triglycerides Cholesterol LDL Cholesterol Direct HDL Cholesterol 25-OH Vitamin D Total PTH Intact Urine pH Urine WBC (Auto) Urine Creatinine Urine Total Protein Fluid Total Protein Vancomycin Trough Rheumatoid Factor Complement C4 Miscellaneous Test Crossmatch 10/07/16 10/07/16 10/07/16 03:45 05:00 10:00 WBC 17.0 H RBC 2.68 L Hgb 7.3 L Hct 25.3 L MCV MCH 27 L MCHC 29 L RDW 19.6 H Plt Count 74 L Lymph % (Auto) [place] % (Auto) Lymph # [place] # Baso # Seg Neutrophils % Seg Neuts % (Manual) Lymphocytes % (Manual) 12.0 L Monocytes % (Manual) Eosinophils % (Manual) Basophils % (Manual) Nucleated RBC % 4.0 H Seg Neutrophils # Seg Neutrophils # Man 10.7 H Lymphocytes # (Manual) Monocytes # (Manual) Eosinophils # (Manual) Basophils # (Manual) PT INR Fibrinogen dRVVT Confirm Interp Factor V Activity POC ABG pH POC ABG pCO2 POC ABG pO2 ABG pO2 ABG HCO3 ABG Base Excess ABG Hemoglobin Oxyhemoglobin Sodium 130 L Potassium 3.2 L Chloride 93.9 L Carbon Dioxide 20 L BUN 44 H Creatinine 2.7 H Glucose 129 H POC Glucose Lactic Acid Calcium 7.4 L Ionized Calcium Phosphorus Magnesium Direct Bilirubin AST ALT 6 L Alkaline Phosphatase 195 H Lactate Dehydrogenase Troponin T C-Reactive Protein Total Protein 4.9 L Albumin 1.0 L Prealbumin Triglycerides Cholesterol LDL Cholesterol Direct HDL Cholesterol 25-OH Vitamin D Total PTH Intact Urine pH Urine WBC (Auto) Urine Creatinine Urine Total Protein Fluid Total Protein Vancomycin Trough Rheumatoid Factor Complement C4 Miscellaneous Test Flexitest 1 H Crossmatch 10/07/16 10/07/16 10/07/16 10:00 11:24 18:10 WBC RBC Hgb Hct MCV MCH MCHC RDW Plt Count Lymph % (Auto) [place] % (Auto) Lymph # [place] # Baso # Seg Neutrophils % Seg Neuts % (Manual) Lymphocytes % (Manual) Monocytes % (Manual) Eosinophils % (Manual) Basophils % (Manual) Nucleated RBC % Seg Neutrophils # Seg Neutrophils # Man Lymphocytes # (Manual) Monocytes # (Manual) Eosinophils # (Manual) Basophils # (Manual) PT INR Fibrinogen dRVVT Confirm Interp Factor V Activity POC ABG pH POC ABG pCO2 POC ABG pO2 ABG pO2 ABG HCO3 ABG Base Excess ABG Hemoglobin Oxyhemoglobin Sodium Potassium Chloride Carbon Dioxide BUN Creatinine Glucose POC Glucose 116 H 130 H Lactic Acid Calcium Ionized Calcium Phosphorus Magnesium Direct Bilirubin AST ALT Alkaline Phosphatase Lactate Dehydrogenase Troponin T C-Reactive Protein 19.40 H Total Protein Albumin Prealbumin Triglycerides Cholesterol LDL Cholesterol Direct HDL Cholesterol 25-OH Vitamin D Total PTH Intact Urine pH Urine WBC (Auto) Urine Creatinine Urine Total Protein Fluid Total Protein Vancomycin Trough Rheumatoid Factor Complement C4 Miscellaneous Test Crossmatch 10/07/16 10/08/16 10/08/16 18:30 00:00 04:00 WBC RBC Hgb Hct MCV MCH MCHC RDW Plt Count Lymph % (Auto) [place] % (Auto) Lymph # [place] # Baso # Seg Neutrophils % Seg Neuts % (Manual) Lymphocytes % (Manual) Monocytes % (Manual) Eosinophils % (Manual) Basophils % (Manual) Nucleated RBC % Seg Neutrophils # Seg Neutrophils # Man Lymphocytes # (Manual) Monocytes # (Manual) Eosinophils # (Manual) Basophils # (Manual) PT INR Fibrinogen dRVVT Confirm Interp Factor V Activity POC ABG pH POC ABG pCO2 POC ABG pO2 ABG pO2 ABG HCO3 ABG Base Excess ABG Hemoglobin Oxyhemoglobin Sodium 132 L Potassium 3.3 L Chloride 93.6 L Carbon Dioxide 17 L BUN 59 H Creatinine 2.7 H Glucose 121 H POC Glucose 122 H Lactic Acid Calcium 7.6 L Ionized Calcium Phosphorus Magnesium Direct Bilirubin AST ALT Alkaline Phosphatase Lactate Dehydrogenase Troponin T C-Reactive Protein Total Protein Albumin Prealbumin Triglycerides Cholesterol LDL Cholesterol Direct HDL Cholesterol 25-OH Vitamin D Total PTH Intact Urine pH Urine WBC (Auto) > 182.0 H Urine Creatinine Urine Total Protein Fluid Total Protein Vancomycin Trough Rheumatoid Factor Complement C4 Miscellaneous Test Crossmatch 10/08/16 10/08/16 10/08/16 04:30 05:30 11:51 WBC RBC 5.15 H Hgb 14.4 H D Hct 44.5 H D MCV MCH MCHC RDW 19.5 H Plt Count 56 L Lymph % (Auto) [place] % (Auto) Lymph # [place] # Baso # Seg Neutrophils % Seg Neuts % (Manual) 24.0 L Lymphocytes % (Manual) 8.0 L Monocytes % (Manual) Eosinophils % (Manual) Basophils % (Manual) Nucleated RBC % 9.0 H Seg Neutrophils # Seg Neutrophils # Man Lymphocytes # (Manual) 0.7 L Monocytes # (Manual) Eosinophils # (Manual) Basophils # (Manual) PT INR Fibrinogen dRVVT Confirm Interp Factor V Activity POC ABG pH POC ABG pCO2 POC ABG pO2 ABG pO2 ABG HCO3 ABG Base Excess ABG Hemoglobin Oxyhemoglobin Sodium Potassium Chloride Carbon Dioxide BUN Creatinine Glucose POC Glucose 125 H 150 H Lactic Acid Calcium Ionized Calcium Phosphorus Magnesium Direct Bilirubin AST ALT Alkaline Phosphatase Lactate Dehydrogenase Troponin T C-Reactive Protein Total Protein Albumin Prealbumin Triglycerides Cholesterol LDL Cholesterol Direct HDL Cholesterol 25-OH Vitamin D Total PTH Intact Urine pH Urine WBC (Auto) Urine Creatinine Urine Total Protein Fluid Total Protein Vancomycin Trough Rheumatoid Factor Complement C4 Miscellaneous Test Crossmatch 10/08/16 10/08/16 10/08/16 12:49 17:07 19:30 WBC RBC Hgb 7.1 L D Hct 22.4 L D MCV MCH MCHC RDW Plt Count Lymph % (Auto) [place] % (Auto) Lymph # [place] # Baso # Seg Neutrophils % Seg Neuts % (Manual) Lymphocytes % (Manual) Monocytes % (Manual) Eosinophils % (Manual) Basophils % (Manual) Nucleated RBC % Seg Neutrophils # Seg Neutrophils # Man Lymphocytes # (Manual) Monocytes # (Manual) Eosinophils # (Manual) Basophils # (Manual) PT INR Fibrinogen dRVVT Confirm Interp Factor V Activity POC ABG pH POC ABG pCO2 28.2 L POC ABG pO2 111 H ABG pO2 ABG HCO3 ABG Base Excess ABG Hemoglobin Oxyhemoglobin Sodium Potassium Chloride Carbon Dioxide BUN Creatinine Glucose POC Glucose 145 H Lactic Acid Calcium Ionized Calcium Phosphorus Magnesium Direct Bilirubin AST ALT Alkaline Phosphatase Lactate Dehydrogenase Troponin T C-Reactive Protein Total Protein Albumin Prealbumin Triglycerides Cholesterol LDL Cholesterol Direct HDL Cholesterol 25-OH Vitamin D Total PTH Intact Urine pH Urine WBC (Auto) Urine Creatinine Urine Total Protein Fluid Total Protein Vancomycin Trough Rheumatoid Factor Complement C4 Miscellaneous Test Crossmatch 10/08/16 10/09/16 10/09/16 19:30 03:45 03:45 WBC 12.6 H RBC 2.36 L Hgb 6.7 L Hct 21.1 L MCV MCH MCHC RDW 19.5 H Plt Count 75 L Lymph % (Auto) [place] % (Auto) Lymph # [place] # Baso # Seg Neutrophils % Seg Neuts % (Manual) Lymphocytes % (Manual) Monocytes % (Manual) 10.0 H Eosinophils % (Manual) Basophils % (Manual) Nucleated RBC % 3.0 H Seg Neutrophils # Seg Neutrophils # Man Lymphocytes # (Manual) Monocytes # (Manual) 1.3 H Eosinophils # (Manual) Basophils # (Manual) PT 18.0 H INR 1.41 H Fibrinogen dRVVT Confirm Interp Factor V Activity POC ABG pH POC ABG pCO2 POC ABG pO2 ABG pO2 ABG HCO3 ABG Base Excess ABG Hemoglobin Oxyhemoglobin Sodium 135 L Potassium Chloride Carbon Dioxide 17 L BUN 81 H Creatinine 3.2 H Glucose 109 H POC Glucose Lactic Acid Calcium 7.4 L Ionized Calcium Phosphorus 4.60 H D Magnesium Direct Bilirubin AST ALT Alkaline Phosphatase Lactate Dehydrogenase Troponin T C-Reactive Protein Total Protein Albumin Prealbumin Triglycerides Cholesterol LDL Cholesterol Direct HDL Cholesterol 25-OH Vitamin D Total PTH Intact Urine pH Urine WBC (Auto) Urine Creatinine Urine Total Protein Fluid Total Protein Vancomycin Trough Rheumatoid Factor Complement C4 Miscellaneous Test Crossmatch 10/09/16 10/09/16 10/09/16 03:45 05:14 07:20 WBC RBC Hgb Hct MCV MCH MCHC RDW Plt Count Lymph % (Auto) [place] % (Auto) Lymph # [place] # Baso # Seg Neutrophils % Seg Neuts % (Manual) Lymphocytes % (Manual) Monocytes % (Manual) Eosinophils % (Manual) Basophils % (Manual) Nucleated RBC % Seg Neutrophils # Seg Neutrophils # Man Lymphocytes # (Manual) Monocytes # (Manual) Eosinophils # (Manual) Basophils # (Manual) PT 19.0 H INR 1.51 H Fibrinogen dRVVT Confirm Interp Factor V Activity POC ABG pH POC ABG pCO2 POC ABG pO2 ABG pO2 ABG HCO3 ABG Base Excess ABG Hemoglobin Oxyhemoglobin Sodium Potassium Chloride Carbon Dioxide BUN Creatinine Glucose POC Glucose 151 H Lactic Acid Calcium Ionized Calcium Phosphorus Magnesium Direct Bilirubin AST ALT Alkaline Phosphatase Lactate Dehydrogenase Troponin T C-Reactive Protein Total Protein Albumin Prealbumin Triglycerides Cholesterol LDL Cholesterol Direct HDL Cholesterol 25-OH Vitamin D Total PTH Intact Urine pH Urine WBC (Auto) Urine Creatinine Urine Total Protein Fluid Total Protein Vancomycin Trough Rheumatoid Factor Complement C4 Miscellaneous Test Crossmatch See Detail 10/09/16 10/09/16 10/09/16 11:46 16:20 16:43 WBC RBC Hgb 7.2 L Hct 22.2 L MCV MCH MCHC RDW Plt Count Lymph % (Auto) [place] % (Auto) Lymph # [place] # Baso # Seg Neutrophils % Seg Neuts % (Manual) Lymphocytes % (Manual) Monocytes % (Manual) Eosinophils % (Manual) Basophils % (Manual) Nucleated RBC % Seg Neutrophils # Seg Neutrophils # Man Lymphocytes # (Manual) Monocytes # (Manual) Eosinophils # (Manual) Basophils # (Manual) PT INR Fibrinogen dRVVT Confirm Interp Factor V Activity POC ABG pH POC ABG pCO2 POC ABG pO2 ABG pO2 ABG HCO3 ABG Base Excess ABG Hemoglobin Oxyhemoglobin Sodium Potassium Chloride Carbon Dioxide BUN Creatinine Glucose POC Glucose 133 H 141 H Lactic Acid Calcium Ionized Calcium Phosphorus Magnesium Direct Bilirubin AST ALT Alkaline Phosphatase Lactate Dehydrogenase Troponin T C-Reactive Protein Total Protein Albumin Prealbumin Triglycerides Cholesterol LDL Cholesterol Direct HDL Cholesterol 25-OH Vitamin D Total PTH Intact Urine pH Urine WBC (Auto) Urine Creatinine Urine Total Protein Fluid Total Protein Vancomycin Trough Rheumatoid Factor Complement C4 Miscellaneous Test Crossmatch 10/10/16 10/10/16 10/10/16 05:00 05:00 11:19 WBC 18.5 H RBC 2.19 L Hgb 6.4 L Hct 19.6 L* MCV MCH MCHC RDW 19.3 H Plt Count 93 L Lymph % (Auto) [place] % (Auto) Lymph # [place] # Baso # Seg Neutrophils % Seg Neuts % (Manual) Lymphocytes % (Manual) 10.0 L Monocytes % (Manual) Eosinophils % (Manual) Basophils % (Manual) Nucleated RBC % 4.0 H Seg Neutrophils # Seg Neutrophils # Man 11.3 H Lymphocytes # (Manual) Monocytes # (Manual) Eosinophils # (Manual) Basophils # (Manual) PT INR Fibrinogen dRVVT Confirm Interp Factor V Activity POC ABG pH POC ABG pCO2 POC ABG pO2 ABG pO2 ABG HCO3 ABG Base Excess ABG Hemoglobin Oxyhemoglobin Sodium Potassium 5.7 H D Chloride Carbon Dioxide 16 L BUN 94 H Creatinine 3.1 H Glucose 131 H POC Glucose 153 H Lactic Acid Calcium 8.2 L Ionized Calcium Phosphorus 5.10 H Magnesium 2.40 H Direct Bilirubin 0.3 H AST ALT < 5 L Alkaline Phosphatase 319 H Lactate Dehydrogenase Troponin T C-Reactive Protein Total Protein 5.1 L Albumin 1.0 L Prealbumin Triglycerides Cholesterol LDL Cholesterol Direct HDL Cholesterol 25-OH Vitamin D Total PTH Intact Urine pH Urine WBC (Auto) Urine Creatinine Urine Total Protein Fluid Total Protein Vancomycin Trough Rheumatoid Factor Complement C4 Miscellaneous Test Crossmatch 10/10/16 10/10/16 10/11/16 17:50 23:30 04:15 WBC RBC Hgb Hct MCV MCH MCHC RDW Plt Count Lymph % (Auto) [place] % (Auto) Lymph # [place] # Baso # Seg Neutrophils % Seg Neuts % (Manual) Lymphocytes % (Manual) Monocytes % (Manual) Eosinophils % (Manual) Basophils % (Manual) Nucleated RBC % Seg Neutrophils # Seg Neutrophils # Man Lymphocytes # (Manual) Monocytes # (Manual) Eosinophils # (Manual) Basophils # (Manual) PT INR Fibrinogen dRVVT Confirm Interp Factor V Activity POC ABG pH POC ABG pCO2 POC ABG pO2 ABG pO2 ABG HCO3 ABG Base Excess ABG Hemoglobin Oxyhemoglobin Sodium Potassium Chloride 96.4 L Carbon Dioxide 21 L BUN 57 H Creatinine 2.1 H Glucose 151 H POC Glucose 146 H 141 H Lactic Acid Calcium 8.3 L Ionized Calcium Phosphorus Magnesium Direct Bilirubin AST ALT Alkaline Phosphatase Lactate Dehydrogenase Troponin T C-Reactive Protein Total Protein Albumin Prealbumin Triglycerides Cholesterol LDL Cholesterol Direct HDL Cholesterol 25-OH Vitamin D Total PTH Intact Urine pH Urine WBC (Auto) Urine Creatinine Urine Total Protein Fluid Total Protein Vancomycin Trough Rheumatoid Factor Complement C4 Miscellaneous Test Crossmatch 10/11/16 10/11/16 10/11/16 04:15 04:15 05:30 WBC 28.3 H RBC 3.12 L Hgb 9.3 L Hct 28.7 L D MCV MCH MCHC RDW 17.7 H Plt Count 128 L Lymph % (Auto) [place] % (Auto) Lymph # [place] # Baso # Seg Neutrophils % Seg Neuts % (Manual) Lymphocytes % (Manual) Monocytes % (Manual) Eosinophils % (Manual) Basophils % (Manual) Nucleated RBC % Seg Neutrophils # Seg Neutrophils # Man Lymphocytes # (Manual) Monocytes # (Manual) Eosinophils # (Manual) Basophils # (Manual) PT INR Fibrinogen dRVVT Confirm Interp Factor V Activity POC ABG pH POC ABG pCO2 POC ABG pO2 ABG pO2 ABG HCO3 ABG Base Excess ABG Hemoglobin Oxyhemoglobin Sodium Potassium Chloride Carbon Dioxide BUN Creatinine Glucose POC Glucose 167 H Lactic Acid Calcium Ionized Calcium Phosphorus Magnesium Direct Bilirubin AST ALT Alkaline Phosphatase Lactate Dehydrogenase Troponin T C-Reactive Protein 15.80 H Total Protein Albumin Prealbumin Triglycerides Cholesterol LDL Cholesterol Direct HDL Cholesterol 25-OH Vitamin D Total PTH Intact Urine pH Urine WBC (Auto) Urine Creatinine Urine Total Protein Fluid Total Protein Vancomycin Trough Rheumatoid Factor Complement C4 Miscellaneous Test Crossmatch 10/11/16 10/11/16 10/11/16 11:40 15:49 23:57 WBC RBC Hgb Hct MCV MCH MCHC RDW Plt Count Lymph % (Auto) [place] % (Auto) Lymph # [place] # Baso # Seg Neutrophils % Seg Neuts % (Manual) Lymphocytes % (Manual) Monocytes % (Manual) Eosinophils % (Manual) Basophils % (Manual) Nucleated RBC % Seg Neutrophils # Seg Neutrophils # Man Lymphocytes # (Manual) Monocytes # (Manual) Eosinophils # (Manual) Basophils # (Manual) PT INR Fibrinogen dRVVT Confirm Interp Factor V Activity POC ABG pH POC ABG pCO2 POC ABG pO2 ABG pO2 ABG HCO3 ABG Base Excess ABG Hemoglobin Oxyhemoglobin Sodium Potassium Chloride Carbon Dioxide BUN Creatinine Glucose POC Glucose 139 H 168 H 161 H Lactic Acid Calcium Ionized Calcium Phosphorus Magnesium Direct Bilirubin AST ALT Alkaline Phosphatase Lactate Dehydrogenase Troponin T C-Reactive Protein Total Protein Albumin Prealbumin Triglycerides Cholesterol LDL Cholesterol Direct HDL Cholesterol 25-OH Vitamin D Total PTH Intact Urine pH Urine WBC (Auto) Urine Creatinine Urine Total Protein Fluid Total Protein Vancomycin Trough Rheumatoid Factor Complement C4 Miscellaneous Test Crossmatch 10/12/16 10/12/16 10/12/16 04:40 04:40 05:44 WBC 22.5 H RBC 2.88 L Hgb 8.8 L Hct 26.8 L MCV MCH MCHC RDW 17.8 H Plt Count Lymph % (Auto) [place] % (Auto) Lymph # [place] # Baso # Seg Neutrophils % Seg Neuts % (Manual) Lymphocytes % (Manual) Monocytes % (Manual) Eosinophils % (Manual) Basophils % (Manual) Nucleated RBC % Seg Neutrophils # Seg Neutrophils # Man Lymphocytes # (Manual) Monocytes # (Manual) Eosinophils # (Manual) Basophils # (Manual) PT INR Fibrinogen dRVVT Confirm Interp Factor V Activity POC ABG pH POC ABG pCO2 POC ABG pO2 ABG pO2 ABG HCO3 ABG Base Excess ABG Hemoglobin Oxyhemoglobin Sodium 134 L Potassium Chloride 93.0 L Carbon Dioxide BUN 74 H Creatinine 2.5 H Glucose 137 H POC Glucose 158 H Lactic Acid Calcium 8.2 L Ionized Calcium Phosphorus Magnesium Direct Bilirubin AST ALT Alkaline Phosphatase Lactate Dehydrogenase Troponin T C-Reactive Protein Total Protein Albumin Prealbumin Triglycerides Cholesterol LDL Cholesterol Direct HDL Cholesterol 25-OH Vitamin D Total PTH Intact Urine pH Urine WBC (Auto) Urine Creatinine Urine Total Protein Fluid Total Protein Vancomycin Trough Rheumatoid Factor Complement C4 Miscellaneous Test Crossmatch 10/12/16 10/12/16 10/12/16 12:27 18:18 23:46 WBC RBC Hgb Hct MCV MCH MCHC RDW Plt Count Lymph % (Auto) [place] % (Auto) Lymph # [place] # Baso # Seg Neutrophils % Seg Neuts % (Manual) Lymphocytes % (Manual) Monocytes % (Manual) Eosinophils % (Manual) Basophils % (Manual) Nucleated RBC % Seg Neutrophils # Seg Neutrophils # Man Lymphocytes # (Manual) Monocytes # (Manual) Eosinophils # (Manual) Basophils # (Manual) PT INR Fibrinogen dRVVT Confirm Interp Factor V Activity POC ABG pH POC ABG pCO2 POC ABG pO2 ABG pO2 ABG HCO3 ABG Base Excess ABG Hemoglobin Oxyhemoglobin Sodium Potassium Chloride Carbon Dioxide BUN Creatinine Glucose POC Glucose 153 H 140 H 150 H Lactic Acid Calcium Ionized Calcium Phosphorus Magnesium Direct Bilirubin AST ALT Alkaline Phosphatase Lactate Dehydrogenase Troponin T C-Reactive Protein Total Protein Albumin Prealbumin Triglycerides Cholesterol LDL Cholesterol Direct HDL Cholesterol 25-OH Vitamin D Total PTH Intact Urine pH Urine WBC (Auto) Urine Creatinine Urine Total Protein Fluid Total Protein Vancomycin Trough Rheumatoid Factor Complement C4 Miscellaneous Test Crossmatch 10/13/16 10/13/16 10/13/16 06:22 09:20 12:29 WBC RBC Hgb Hct MCV MCH MCHC RDW Plt Count Lymph % (Auto) [place] % (Auto) Lymph # [place] # Baso # Seg Neutrophils % Seg Neuts % (Manual) Lymphocytes % (Manual) Monocytes % (Manual) Eosinophils % (Manual) Basophils % (Manual) Nucleated RBC % Seg Neutrophils # Seg Neutrophils # Man Lymphocytes # (Manual) Monocytes # (Manual) Eosinophils # (Manual) Basophils # (Manual) PT INR Fibrinogen dRVVT Confirm Interp Factor V Activity POC ABG pH POC ABG pCO2 POC ABG pO2 ABG pO2 ABG HCO3 ABG Base Excess ABG Hemoglobin Oxyhemoglobin Sodium Potassium Chloride Carbon Dioxide BUN Creatinine Glucose POC Glucose 165 H 193 H Lactic Acid Calcium Ionized Calcium Phosphorus Magnesium Direct Bilirubin AST ALT Alkaline Phosphatase Lactate Dehydrogenase Troponin T C-Reactive Protein Total Protein Albumin Prealbumin Triglycerides Cholesterol LDL Cholesterol Direct HDL Cholesterol 25-OH Vitamin D Total PTH Intact Urine pH Urine WBC (Auto) Urine Creatinine Urine Total Protein Fluid Total Protein Vancomycin Trough Rheumatoid Factor Complement C4 Miscellaneous Test Flexitest 1 H Crossmatch 10/13/16 10/13/16 10/13/16 18:09 Unknown Unknown WBC 23.4 H RBC 2.83 L Hgb 8.7 L Hct 26.1 L MCV MCH MCHC RDW 18.1 H Plt Count Lymph % (Auto) [place] % (Auto) Lymph # [place] # Baso # Seg Neutrophils % Seg Neuts % (Manual) Lymphocytes % (Manual) Monocytes % (Manual) Eosinophils % (Manual) Basophils % (Manual) Nucleated RBC % Seg Neutrophils # Seg Neutrophils # Man Lymphocytes # (Manual) Monocytes # (Manual) Eosinophils # (Manual) Basophils # (Manual) PT INR Fibrinogen dRVVT Confirm Interp Factor V Activity POC ABG pH POC ABG pCO2 POC ABG pO2 ABG pO2 ABG HCO3 ABG Base Excess ABG Hemoglobin Oxyhemoglobin Sodium Potassium Chloride 95.8 L Carbon Dioxide BUN 82 H Creatinine 2.6 H Glucose 152 H POC Glucose 166 H Lactic Acid Calcium Ionized Calcium Phosphorus Magnesium Direct Bilirubin AST ALT Alkaline Phosphatase Lactate Dehydrogenase Troponin T C-Reactive Protein Total Protein Albumin Prealbumin Triglycerides Cholesterol LDL Cholesterol Direct HDL Cholesterol 25-OH Vitamin D Total PTH Intact Urine pH Urine WBC (Auto) Urine Creatinine Urine Total Protein Fluid Total Protein Vancomycin Trough Rheumatoid Factor Complement C4 Miscellaneous Test Crossmatch 10/14/16 10/14/16 10/14/16 05:38 06:35 08:10 WBC 20.7 H RBC 2.81 L Hgb 8.4 L Hct 27.2 L MCV MCH MCHC RDW 19.4 H Plt Count Lymph % (Auto) [place] % (Auto) Lymph # [place] # Baso # Seg Neutrophils % Seg Neuts % (Manual) Lymphocytes % (Manual) Monocytes % (Manual) Eosinophils % (Manual) Basophils % (Manual) Nucleated RBC % Seg Neutrophils # Seg Neutrophils # Man Lymphocytes # (Manual) Monocytes # (Manual) Eosinophils # (Manual) Basophils # (Manual) PT INR Fibrinogen dRVVT Confirm Interp Factor V Activity POC ABG pH POC ABG pCO2 POC ABG pO2 ABG pO2 ABG HCO3 ABG Base Excess ABG Hemoglobin Oxyhemoglobin Sodium Potassium Chloride Carbon Dioxide BUN 58 H Creatinine 1.9 H Glucose 169 H POC Glucose 195 H Lactic Acid Calcium Ionized Calcium Phosphorus Magnesium Direct Bilirubin AST ALT Alkaline Phosphatase Lactate Dehydrogenase Troponin T C-Reactive Protein Total Protein Albumin Prealbumin Triglycerides Cholesterol LDL Cholesterol Direct HDL Cholesterol 25-OH Vitamin D Total PTH Intact Urine pH Urine WBC (Auto) Urine Creatinine Urine Total Protein Fluid Total Protein Vancomycin Trough Rheumatoid Factor Complement C4 Miscellaneous Test Crossmatch 10/14/16 10/14/16 10/14/16 11:44 17:13 23:28 WBC RBC Hgb Hct MCV MCH MCHC RDW Plt Count Lymph % (Auto) [place] % (Auto) Lymph # [place] # Baso # Seg Neutrophils % Seg Neuts % (Manual) Lymphocytes % (Manual) Monocytes % (Manual) Eosinophils % (Manual) Basophils % (Manual) Nucleated RBC % Seg Neutrophils # Seg Neutrophils # Man Lymphocytes # (Manual) Monocytes # (Manual) Eosinophils # (Manual) Basophils # (Manual) PT INR Fibrinogen dRVVT Confirm Interp Factor V Activity POC ABG pH POC ABG pCO2 POC ABG pO2 ABG pO2 ABG HCO3 ABG Base Excess ABG Hemoglobin Oxyhemoglobin Sodium Potassium Chloride Carbon Dioxide BUN Creatinine Glucose POC Glucose 174 H 121 H 151 H Lactic Acid Calcium Ionized Calcium Phosphorus Magnesium Direct Bilirubin AST ALT Alkaline Phosphatase Lactate Dehydrogenase Troponin T C-Reactive Protein Total Protein Albumin Prealbumin Triglycerides Cholesterol LDL Cholesterol Direct HDL Cholesterol 25-OH Vitamin D Total PTH Intact Urine pH Urine WBC (Auto) Urine Creatinine Urine Total Protein Fluid Total Protein Vancomycin Trough Rheumatoid Factor Complement C4 Miscellaneous Test Crossmatch 10/15/16 10/15/16 10/15/16 05:06 12:26 17:48 WBC RBC Hgb Hct MCV MCH MCHC RDW Plt Count Lymph % (Auto) [place] % (Auto) Lymph # [place] # Baso # Seg Neutrophils % Seg Neuts % (Manual) Lymphocytes % (Manual) Monocytes % (Manual) Eosinophils % (Manual) Basophils % (Manual) Nucleated RBC % Seg Neutrophils # Seg Neutrophils # Man Lymphocytes # (Manual) Monocytes # (Manual) Eosinophils # (Manual) Basophils # (Manual) PT INR Fibrinogen dRVVT Confirm Interp Factor V Activity POC ABG pH POC ABG pCO2 POC ABG pO2 ABG pO2 ABG HCO3 ABG Base Excess ABG Hemoglobin Oxyhemoglobin Sodium Potassium Chloride Carbon Dioxide BUN Creatinine Glucose POC Glucose 151 H 149 H 153 H Lactic Acid Calcium Ionized Calcium Phosphorus Magnesium Direct Bilirubin AST ALT Alkaline Phosphatase Lactate Dehydrogenase Troponin T C-Reactive Protein Total Protein Albumin Prealbumin Triglycerides Cholesterol LDL Cholesterol Direct HDL Cholesterol 25-OH Vitamin D Total PTH Intact Urine pH Urine WBC (Auto) Urine Creatinine Urine Total Protein Fluid Total Protein Vancomycin Trough Rheumatoid Factor Complement C4 Miscellaneous Test Crossmatch 10/15/16 10/15/16 10/16/16 Unknown Unknown 00:02 WBC 23.4 H RBC 2.78 L Hgb 8.5 L Hct 25.7 L MCV MCH MCHC RDW 18.7 H Plt Count Lymph % (Auto) [place] % (Auto) Lymph # [place] # Baso # Seg Neutrophils % Seg Neuts % (Manual) Lymphocytes % (Manual) Monocytes % (Manual) Eosinophils % (Manual) Basophils % (Manual) Nucleated RBC % Seg Neutrophils # Seg Neutrophils # Man Lymphocytes # (Manual) Monocytes # (Manual) Eosinophils # (Manual) Basophils # (Manual) PT INR Fibrinogen dRVVT Confirm Interp Factor V Activity POC ABG pH POC ABG pCO2 POC ABG pO2 ABG pO2 ABG HCO3 ABG Base Excess ABG Hemoglobin Oxyhemoglobin Sodium Potassium Chloride Carbon Dioxide BUN 73 H Creatinine 2.3 H Glucose 120 H POC Glucose 137 H Lactic Acid Calcium Ionized Calcium Phosphorus Magnesium Direct Bilirubin AST ALT Alkaline Phosphatase Lactate Dehydrogenase Troponin T C-Reactive Protein Total Protein Albumin Prealbumin Triglycerides Cholesterol LDL Cholesterol Direct HDL Cholesterol 25-OH Vitamin D Total PTH Intact Urine pH Urine WBC (Auto) Urine Creatinine Urine Total Protein Fluid Total Protein Vancomycin Trough Rheumatoid Factor Complement C4 Miscellaneous Test Crossmatch 10/16/16 10/16/16 10/16/16 05:44 06:25 06:25 WBC 22.5 H RBC 2.76 L Hgb 8.3 L Hct 25.2 L MCV MCH MCHC RDW 18.3 H Plt Count Lymph % (Auto) [place] % (Auto) Lymph # [place] # Baso # Seg Neutrophils % Seg Neuts % (Manual) Lymphocytes % (Manual) Monocytes % (Manual) Eosinophils % (Manual) Basophils % (Manual) Nucleated RBC % Seg Neutrophils # Seg Neutrophils # Man Lymphocytes # (Manual) Monocytes # (Manual) Eosinophils # (Manual) Basophils # (Manual) PT INR Fibrinogen dRVVT Confirm Interp Factor V Activity POC ABG pH POC ABG pCO2 POC ABG pO2 ABG pO2 ABG HCO3 ABG Base Excess ABG Hemoglobin Oxyhemoglobin Sodium Potassium Chloride Carbon Dioxide BUN 92 H Creatinine 3.0 H Glucose 138 H POC Glucose 110 H Lactic Acid Calcium Ionized Calcium Phosphorus Magnesium Direct Bilirubin AST ALT Alkaline Phosphatase Lactate Dehydrogenase Troponin T C-Reactive Protein Total Protein Albumin Prealbumin Triglycerides Cholesterol LDL Cholesterol Direct HDL Cholesterol 25-OH Vitamin D Total PTH Intact Urine pH Urine WBC (Auto) Urine Creatinine Urine Total Protein Fluid Total Protein Vancomycin Trough Rheumatoid Factor Complement C4 Miscellaneous Test Crossmatch 10/16/16 10/16/16 10/16/16 11:27 11:48 17:36 WBC RBC Hgb Hct MCV MCH MCHC RDW Plt Count Lymph % (Auto) [place] % (Auto) Lymph # [place] # Baso # Seg Neutrophils % Seg Neuts % (Manual) Lymphocytes % (Manual) Monocytes % (Manual) Eosinophils % (Manual) Basophils % (Manual) Nucleated RBC % Seg Neutrophils # Seg Neutrophils # Man Lymphocytes # (Manual) Monocytes # (Manual) Eosinophils # (Manual) Basophils # (Manual) PT INR Fibrinogen dRVVT Confirm Interp Factor V Activity POC ABG pH 7.582 H POC ABG pCO2 27.4 L POC ABG pO2 110 H ABG pO2 ABG HCO3 ABG Base Excess ABG Hemoglobin Oxyhemoglobin Sodium Potassium Chloride Carbon Dioxide BUN Creatinine Glucose POC Glucose 121 H 133 H Lactic Acid Calcium Ionized Calcium Phosphorus Magnesium Direct Bilirubin AST ALT Alkaline Phosphatase Lactate Dehydrogenase Troponin T C-Reactive Protein Total Protein Albumin Prealbumin Triglycerides Cholesterol LDL Cholesterol Direct HDL Cholesterol 25-OH Vitamin D Total PTH Intact Urine pH Urine WBC (Auto) Urine Creatinine Urine Total Protein Fluid Total Protein Vancomycin Trough Rheumatoid Factor Complement C4 Miscellaneous Test Crossmatch 10/16/16 10/17/16 10/17/16 20:48 04:24 04:24 WBC 21.4 H RBC 2.72 L Hgb 8.0 L Hct 25.2 L MCV MCH MCHC RDW 18.0 H Plt Count Lymph % (Auto) [place] % (Auto) Lymph # [place] # Baso # Seg Neutrophils % Seg Neuts % (Manual) Lymphocytes % (Manual) Monocytes % (Manual) Eosinophils % (Manual) Basophils % (Manual) Nucleated RBC % Seg Neutrophils # Seg Neutrophils # Man Lymphocytes # (Manual) Monocytes # (Manual) Eosinophils # (Manual) Basophils # (Manual) PT INR Fibrinogen dRVVT Confirm Interp Factor V Activity POC ABG pH 7.561 H POC ABG pCO2 24.4 L POC ABG pO2 77 L ABG pO2 ABG HCO3 ABG Base Excess ABG Hemoglobin Oxyhemoglobin Sodium 148 H Potassium Chloride Carbon Dioxide BUN 104 H Creatinine 3.0 H Glucose 149 H POC Glucose Lactic Acid Calcium Ionized Calcium Phosphorus Magnesium Direct Bilirubin AST ALT Alkaline Phosphatase 138 H Lactate Dehydrogenase Troponin T C-Reactive Protein Total Protein 6.2 L Albumin 1.5 L Prealbumin Triglycerides Cholesterol LDL Cholesterol Direct HDL Cholesterol 25-OH Vitamin D Total PTH Intact Urine pH Urine WBC (Auto) Urine Creatinine Urine Total Protein Fluid Total Protein Vancomycin Trough Rheumatoid Factor Complement C4 Miscellaneous Test Crossmatch 10/17/16 10/17/16 10/17/16 06:02 12:17 17:14 WBC RBC Hgb Hct MCV MCH MCHC RDW Plt Count Lymph % (Auto) [place] % (Auto) Lymph # [place] # Baso # Seg Neutrophils % Seg Neuts % (Manual) Lymphocytes % (Manual) Monocytes % (Manual) Eosinophils % (Manual) Basophils % (Manual) Nucleated RBC % Seg Neutrophils # Seg Neutrophils # Man Lymphocytes # (Manual) Monocytes # (Manual) Eosinophils # (Manual) Basophils # (Manual) PT INR Fibrinogen dRVVT Confirm Interp Factor V Activity POC ABG pH POC ABG pCO2 POC ABG pO2 ABG pO2 ABG HCO3 ABG Base Excess ABG Hemoglobin Oxyhemoglobin Sodium Potassium Chloride Carbon Dioxide BUN Creatinine Glucose POC Glucose 170 H 167 H 126 H Lactic Acid Calcium Ionized Calcium Phosphorus Magnesium Direct Bilirubin AST ALT Alkaline Phosphatase Lactate Dehydrogenase Troponin T C-Reactive Protein Total Protein Albumin Prealbumin Triglycerides Cholesterol LDL Cholesterol Direct HDL Cholesterol 25-OH Vitamin D Total PTH Intact Urine pH Urine WBC (Auto) Urine Creatinine Urine Total Protein Fluid Total Protein Vancomycin Trough Rheumatoid Factor Complement C4 Miscellaneous Test Crossmatch 10/17/16 10/18/16 10/18/16 23:17 04:00 04:00 WBC 20.7 H RBC 2.47 L Hgb 7.4 L Hct 22.9 L MCV MCH MCHC RDW 17.5 H Plt Count Lymph % (Auto) [place] % (Auto) Lymph # [place] # Baso # Seg Neutrophils % Seg Neuts % (Manual) Lymphocytes % (Manual) Monocytes % (Manual) Eosinophils % (Manual) Basophils % (Manual) Nucleated RBC % Seg Neutrophils # Seg Neutrophils # Man Lymphocytes # (Manual) Monocytes # (Manual) Eosinophils # (Manual) Basophils # (Manual) PT INR Fibrinogen dRVVT Confirm Interp Factor V Activity POC ABG pH POC ABG pCO2 POC ABG pO2 ABG pO2 ABG HCO3 ABG Base Excess ABG Hemoglobin Oxyhemoglobin Sodium 149 H Potassium Chloride 107.9 H Carbon Dioxide 20 L BUN 117 H Creatinine 3.2 H Glucose 119 H POC Glucose 121 H Lactic Acid Calcium Ionized Calcium Phosphorus Magnesium Direct Bilirubin AST ALT Alkaline Phosphatase Lactate Dehydrogenase Troponin T C-Reactive Protein Total Protein Albumin Prealbumin Triglycerides Cholesterol LDL Cholesterol Direct HDL Cholesterol 25-OH Vitamin D Total PTH Intact Urine pH Urine WBC (Auto) Urine Creatinine Urine Total Protein Fluid Total Protein Vancomycin Trough Rheumatoid Factor Complement C4 Miscellaneous Test Crossmatch 10/18/16 10/18/16 10/18/16 05:23 10:46 17:30 WBC RBC Hgb Hct MCV MCH MCHC RDW Plt Count Lymph % (Auto) [place] % (Auto) Lymph # [place] # Baso # Seg Neutrophils % Seg Neuts % (Manual) Lymphocytes % (Manual) Monocytes % (Manual) Eosinophils % (Manual) Basophils % (Manual) Nucleated RBC % Seg Neutrophils # Seg Neutrophils # Man Lymphocytes # (Manual) Monocytes # (Manual) Eosinophils # (Manual) Basophils # (Manual) PT INR Fibrinogen dRVVT Confirm Interp Factor V Activity POC ABG pH POC ABG pCO2 POC ABG pO2 ABG pO2 ABG HCO3 ABG Base Excess ABG Hemoglobin Oxyhemoglobin Sodium Potassium Chloride Carbon Dioxide BUN Creatinine Glucose POC Glucose 119 H 155 H 124 H Lactic Acid Calcium Ionized Calcium Phosphorus Magnesium Direct Bilirubin AST ALT Alkaline Phosphatase Lactate Dehydrogenase Troponin T C-Reactive Protein Total Protein Albumin Prealbumin Triglycerides Cholesterol LDL Cholesterol Direct HDL Cholesterol 25-OH Vitamin D Total PTH Intact Urine pH Urine WBC (Auto) Urine Creatinine Urine Total Protein Fluid Total Protein Vancomycin Trough Rheumatoid Factor Complement C4 Miscellaneous Test Crossmatch 10/19/16 10/19/16 10/19/16 04:00 04:00 05:25 WBC 17.4 H RBC 2.54 L Hgb 7.7 L Hct 23.6 L MCV MCH MCHC RDW 17.3 H Plt Count Lymph % (Auto) [place] % (Auto) Lymph # [place] # Baso # Seg Neutrophils % Seg Neuts % (Manual) Lymphocytes % (Manual) Monocytes % (Manual) Eosinophils % (Manual) Basophils % (Manual) Nucleated RBC % Seg Neutrophils # Seg Neutrophils # Man Lymphocytes # (Manual) Monocytes # (Manual) Eosinophils # (Manual) Basophils # (Manual) PT INR Fibrinogen dRVVT Confirm Interp Factor V Activity POC ABG pH POC ABG pCO2 POC ABG pO2 ABG pO2 ABG HCO3 ABG Base Excess ABG Hemoglobin Oxyhemoglobin Sodium Potassium Chloride Carbon Dioxide BUN 72 H Creatinine 2.1 H Glucose 116 H POC Glucose 119 H Lactic Acid Calcium Ionized Calcium Phosphorus Magnesium Direct Bilirubin AST ALT Alkaline Phosphatase Lactate Dehydrogenase Troponin T C-Reactive Protein Total Protein Albumin Prealbumin Triglycerides Cholesterol LDL Cholesterol Direct HDL Cholesterol 25-OH Vitamin D Total PTH Intact Urine pH Urine WBC (Auto) Urine Creatinine Urine Total Protein Fluid Total Protein Vancomycin Trough Rheumatoid Factor Complement C4 Miscellaneous Test Crossmatch 10/19/16 10/19/16 10/20/16 11:46 23:59 06:00 WBC RBC Hgb Hct MCV MCH MCHC RDW Plt Count Lymph % (Auto) [place] % (Auto) Lymph # [place] # Baso # Seg Neutrophils % Seg Neuts % (Manual) Lymphocytes % (Manual) Monocytes % (Manual) Eosinophils % (Manual) Basophils % (Manual) Nucleated RBC % Seg Neutrophils # Seg Neutrophils # Man Lymphocytes # (Manual) Monocytes # (Manual) Eosinophils # (Manual) Basophils # (Manual) PT INR Fibrinogen dRVVT Confirm Interp Factor V Activity POC ABG pH POC ABG pCO2 POC ABG pO2 ABG pO2 ABG HCO3 ABG Base Excess ABG Hemoglobin Oxyhemoglobin Sodium Potassium Chloride Carbon Dioxide 17 L BUN 94 H Creatinine 2.7 H Glucose POC Glucose 116 H 117 H Lactic Acid Calcium Ionized Calcium Phosphorus Magnesium Direct Bilirubin AST ALT Alkaline Phosphatase Lactate Dehydrogenase Troponin T C-Reactive Protein Total Protein Albumin Prealbumin Triglycerides Cholesterol LDL Cholesterol Direct HDL Cholesterol 25-OH Vitamin D Total PTH Intact Urine pH Urine WBC (Auto) Urine Creatinine Urine Total Protein Fluid Total Protein Vancomycin Trough Rheumatoid Factor Complement C4 Miscellaneous Test Crossmatch 10/20/16 10/20/16 10/20/16 06:00 11:49 16:00 WBC 19.7 H RBC 2.51 L Hgb 7.7 L Hct 23.5 L MCV MCH MCHC RDW 17.5 H Plt Count Lymph % (Auto) [place] % (Auto) Lymph # [place] # Baso # Seg Neutrophils % Seg Neuts % (Manual) Lymphocytes % (Manual) Monocytes % (Manual) Eosinophils % (Manual) Basophils % (Manual) Nucleated RBC % Seg Neutrophils # Seg Neutrophils # Man Lymphocytes # (Manual) Monocytes # (Manual) Eosinophils # (Manual) Basophils # (Manual) PT INR Fibrinogen dRVVT Confirm Interp Factor V Activity POC ABG pH POC ABG pCO2 POC ABG pO2 ABG pO2 ABG HCO3 ABG Base Excess ABG Hemoglobin Oxyhemoglobin Sodium Potassium Chloride Carbon Dioxide BUN Creatinine Glucose POC Glucose 117 H Lactic Acid Calcium Ionized Calcium Phosphorus Magnesium Direct Bilirubin AST ALT Alkaline Phosphatase Lactate Dehydrogenase Troponin T C-Reactive Protein Total Protein Albumin Prealbumin Triglycerides Cholesterol LDL Cholesterol Direct HDL Cholesterol 25-OH Vitamin D Total PTH Intact Urine pH Urine WBC (Auto) Urine Creatinine Urine Total Protein Fluid Total Protein Vancomycin Trough Rheumatoid Factor Complement C4 Miscellaneous Test Flexitest 1 H Crossmatch 10/20/16 10/20/16 10/21/16 18:36 23:39 04:00 WBC RBC Hgb Hct MCV MCH MCHC RDW Plt Count Lymph % (Auto) [place] % (Auto) Lymph # [place] # Baso # Seg Neutrophils % Seg Neuts % (Manual) Lymphocytes % (Manual) Monocytes % (Manual) Eosinophils % (Manual) Basophils % (Manual) Nucleated RBC % Seg Neutrophils # Seg Neutrophils # Man Lymphocytes # (Manual) Monocytes # (Manual) Eosinophils # (Manual) Basophils # (Manual) PT INR Fibrinogen dRVVT Confirm Interp Factor V Activity POC ABG pH POC ABG pCO2 POC ABG pO2 ABG pO2 ABG HCO3 ABG Base Excess ABG Hemoglobin Oxyhemoglobin Sodium Potassium 5.4 H D Chloride Carbon Dioxide 15 L BUN 110 H Creatinine 3.0 H Glucose POC Glucose 127 H 114 H Lactic Acid Calcium Ionized Calcium Phosphorus Magnesium Direct Bilirubin AST ALT Alkaline Phosphatase Lactate Dehydrogenase Troponin T C-Reactive Protein Total Protein Albumin Prealbumin Triglycerides Cholesterol LDL Cholesterol Direct HDL Cholesterol 25-OH Vitamin D Total PTH Intact Urine pH Urine WBC (Auto) Urine Creatinine Urine Total Protein Fluid Total Protein Vancomycin Trough Rheumatoid Factor Complement C4 Miscellaneous Test Crossmatch 10/21/16 10/21/16 10/22/16 05:54 23:46 05:18 WBC RBC Hgb Hct MCV MCH MCHC RDW Plt Count Lymph % (Auto) [place] % (Auto) Lymph # [place] # Baso # Seg Neutrophils % Seg Neuts % (Manual) Lymphocytes % (Manual) Monocytes % (Manual) Eosinophils % (Manual) Basophils % (Manual) Nucleated RBC % Seg Neutrophils # Seg Neutrophils # Man Lymphocytes # (Manual) Monocytes # (Manual) Eosinophils # (Manual) Basophils # (Manual) PT INR Fibrinogen dRVVT Confirm Interp Factor V Activity POC ABG pH POC ABG pCO2 POC ABG pO2 ABG pO2 ABG HCO3 ABG Base Excess ABG Hemoglobin Oxyhemoglobin Sodium Potassium Chloride Carbon Dioxide BUN Creatinine Glucose POC Glucose 119 H 108 H 109 H Lactic Acid Calcium Ionized Calcium Phosphorus Magnesium Direct Bilirubin AST ALT Alkaline Phosphatase Lactate Dehydrogenase Troponin T C-Reactive Protein Total Protein Albumin Prealbumin Triglycerides Cholesterol LDL Cholesterol Direct HDL Cholesterol 25-OH Vitamin D Total PTH Intact Urine pH Urine WBC (Auto) Urine Creatinine Urine Total Protein Fluid Total Protein Vancomycin Trough Rheumatoid Factor Complement C4 Miscellaneous Test Crossmatch 10/22/16 10/22/16 10/22/16 06:40 06:40 06:40 WBC 14.0 H RBC 2.03 L Hgb 7.0 L Hct 20.5 L MCV 98 H MCH 34 H MCHC 35 H RDW 17.8 H Plt Count Lymph % (Auto) [place] % (Auto) 9.9 H Lymph # [place] # 1.4 H Baso # 0.2 H Seg Neutrophils % 72.0 H Seg Neuts % (Manual) Lymphocytes % (Manual) Monocytes % (Manual) Eosinophils % (Manual) Basophils % (Manual) Nucleated RBC % Seg Neutrophils # 10.0 H Seg Neutrophils # Man Lymphocytes # (Manual) Monocytes # (Manual) Eosinophils # (Manual) Basophils # (Manual) PT INR Fibrinogen dRVVT Confirm Interp Factor V Activity POC ABG pH POC ABG pCO2 POC ABG pO2 ABG pO2 ABG HCO3 ABG Base Excess ABG Hemoglobin Oxyhemoglobin Sodium 130 L D Potassium Chloride 92.4 L Carbon Dioxide 20 L BUN 50 H Creatinine 1.6 H Glucose 589 H* POC Glucose Lactic Acid Calcium 7.8 L D Ionized Calcium Phosphorus Magnesium 1.60 L Direct Bilirubin AST ALT Alkaline Phosphatase Lactate Dehydrogenase Troponin T C-Reactive Protein Total Protein Albumin Prealbumin Triglycerides Cholesterol LDL Cholesterol Direct HDL Cholesterol 25-OH Vitamin D Total PTH Intact Urine pH Urine WBC (Auto) Urine Creatinine Urine Total Protein Fluid Total Protein Vancomycin Trough Rheumatoid Factor Complement C4 Miscellaneous Test Crossmatch 10/22/16 10/22/16 10/22/16 11:39 16:44 23:36 WBC RBC Hgb Hct MCV MCH MCHC RDW Plt Count Lymph % (Auto) [place] % (Auto) Lymph # [place] # Baso # Seg Neutrophils % Seg Neuts % (Manual) Lymphocytes % (Manual) Monocytes % (Manual) Eosinophils % (Manual) Basophils % (Manual) Nucleated RBC % Seg Neutrophils # Seg Neutrophils # Man Lymphocytes # (Manual) Monocytes # (Manual) Eosinophils # (Manual) Basophils # (Manual) PT INR Fibrinogen dRVVT Confirm Interp Factor V Activity POC ABG pH POC ABG pCO2 POC ABG pO2 ABG pO2 ABG HCO3 ABG Base Excess ABG Hemoglobin Oxyhemoglobin Sodium Potassium Chloride Carbon Dioxide BUN Creatinine Glucose POC Glucose 142 H 163 H 123 H Lactic Acid Calcium Ionized Calcium Phosphorus Magnesium Direct Bilirubin AST ALT Alkaline Phosphatase Lactate Dehydrogenase Troponin T C-Reactive Protein Total Protein Albumin Prealbumin Triglycerides Cholesterol LDL Cholesterol Direct HDL Cholesterol 25-OH Vitamin D Total PTH Intact Urine pH Urine WBC (Auto) Urine Creatinine Urine Total Protein Fluid Total Protein Vancomycin Trough Rheumatoid Factor Complement C4 Miscellaneous Test Crossmatch 10/23/16 10/23/16 10/23/16 04:58 06:00 12:12 WBC RBC Hgb Hct MCV MCH MCHC RDW Plt Count Lymph % (Auto) [place] % (Auto) Lymph # [place] # Baso # Seg Neutrophils % Seg Neuts % (Manual) Lymphocytes % (Manual) Monocytes % (Manual) Eosinophils % (Manual) Basophils % (Manual) Nucleated RBC % Seg Neutrophils # Seg Neutrophils # Man Lymphocytes # (Manual) Monocytes # (Manual) Eosinophils # (Manual) Basophils # (Manual) PT INR Fibrinogen dRVVT Confirm Interp Factor V Activity POC ABG pH POC ABG pCO2 POC ABG pO2 ABG pO2 ABG HCO3 ABG Base Excess ABG Hemoglobin Oxyhemoglobin Sodium 133 L Potassium 3.5 L Chloride 96.1 L Carbon Dioxide 18 L BUN 76 H Creatinine 2.1 H Glucose POC Glucose 133 H 138 H Lactic Acid Calcium 8.3 L Ionized Calcium Phosphorus Magnesium Direct Bilirubin AST ALT Alkaline Phosphatase Lactate Dehydrogenase Troponin T C-Reactive Protein Total Protein Albumin Prealbumin Triglycerides Cholesterol LDL Cholesterol Direct HDL Cholesterol 25-OH Vitamin D Total PTH Intact Urine pH Urine WBC (Auto) Urine Creatinine Urine Total Protein Fluid Total Protein Vancomycin Trough Rheumatoid Factor Complement C4 Miscellaneous Test Crossmatch 10/23/16 10/23/16 10/24/16 16:53 23:37 04:00 WBC RBC Hgb Hct MCV MCH MCHC RDW Plt Count Lymph % (Auto) [place] % (Auto) Lymph # [place] # Baso # Seg Neutrophils % Seg Neuts % (Manual) Lymphocytes % (Manual) Monocytes % (Manual) Eosinophils % (Manual) Basophils % (Manual) Nucleated RBC % Seg Neutrophils # Seg Neutrophils # Man Lymphocytes # (Manual) Monocytes # (Manual) Eosinophils # (Manual) Basophils # (Manual) PT INR Fibrinogen dRVVT Confirm Interp Factor V Activity POC ABG pH POC ABG pCO2 POC ABG pO2 ABG pO2 ABG HCO3 ABG Base Excess ABG Hemoglobin Oxyhemoglobin Sodium 131 L Potassium Chloride 94.5 L Carbon Dioxide 19 L BUN 97 H Creatinine 2.6 H Glucose 110 H POC Glucose 125 H 123 H Lactic Acid Calcium 8.3 L Ionized Calcium Phosphorus Magnesium Direct Bilirubin AST ALT Alkaline Phosphatase Lactate Dehydrogenase Troponin T C-Reactive Protein Total Protein Albumin Prealbumin Triglycerides Cholesterol LDL Cholesterol Direct HDL Cholesterol 25-OH Vitamin D Total PTH Intact Urine pH Urine WBC (Auto) Urine Creatinine Urine Total Protein Fluid Total Protein Vancomycin Trough Rheumatoid Factor Complement C4 Miscellaneous Test Crossmatch 10/24/16 10/24/16 10/24/16 07:49 11:39 17:52 WBC RBC Hgb 6.0 L Hct 19.7 L* MCV MCH MCHC RDW Plt Count Lymph % (Auto) [place] % (Auto) Lymph # [place] # Baso # Seg Neutrophils % Seg Neuts % (Manual) Lymphocytes % (Manual) Monocytes % (Manual) Eosinophils % (Manual) Basophils % (Manual) Nucleated RBC % Seg Neutrophils # Seg Neutrophils # Man Lymphocytes # (Manual) Monocytes # (Manual) Eosinophils # (Manual) Basophils # (Manual) PT INR Fibrinogen dRVVT Confirm Interp Factor V Activity POC ABG pH POC ABG pCO2 POC ABG pO2 ABG pO2 ABG HCO3 ABG Base Excess ABG Hemoglobin Oxyhemoglobin Sodium Potassium Chloride Carbon Dioxide BUN Creatinine Glucose POC Glucose 106 H 158 H Lactic Acid Calcium Ionized Calcium Phosphorus Magnesium Direct Bilirubin AST ALT Alkaline Phosphatase Lactate Dehydrogenase Troponin T C-Reactive Protein Total Protein Albumin Prealbumin Triglycerides Cholesterol LDL Cholesterol Direct HDL Cholesterol 25-OH Vitamin D Total PTH Intact Urine pH Urine WBC (Auto) Urine Creatinine Urine Total Protein Fluid Total Protein Vancomycin Trough Rheumatoid Factor Complement C4 Miscellaneous Test Crossmatch 10/24/16 10/24/16 10/24/16 20:00 22:27 Unknown WBC RBC Hgb 9.4 L D Hct 27.5 L D MCV MCH MCHC RDW Plt Count Lymph % (Auto) [place] % (Auto) Lymph # [place] # Baso # Seg Neutrophils % Seg Neuts % (Manual) Lymphocytes % (Manual) Monocytes % (Manual) Eosinophils % (Manual) Basophils % (Manual) Nucleated RBC % Seg Neutrophils # Seg Neutrophils # Man Lymphocytes # (Manual) Monocytes # (Manual) Eosinophils # (Manual) Basophils # (Manual) PT INR Fibrinogen dRVVT Confirm Interp Factor V Activity POC ABG pH POC ABG pCO2 POC ABG pO2 ABG pO2 ABG HCO3 ABG Base Excess ABG Hemoglobin Oxyhemoglobin Sodium Potassium Chloride Carbon Dioxide BUN Creatinine Glucose POC Glucose 125 H Lactic Acid Calcium Ionized Calcium Phosphorus Magnesium Direct Bilirubin AST ALT Alkaline Phosphatase Lactate Dehydrogenase Troponin T C-Reactive Protein Total Protein Albumin Prealbumin Triglycerides Cholesterol LDL Cholesterol Direct HDL Cholesterol 25-OH Vitamin D Total PTH Intact Urine pH Urine WBC (Auto) Urine Creatinine Urine Total Protein Fluid Total Protein Vancomycin Trough Rheumatoid Factor Complement C4 Miscellaneous Test Crossmatch See Detail 10/25/16 10/25/16 10/25/16 04:00 04:00 04:00 WBC 14.2 H RBC 2.98 L Hgb 9.0 L Hct 26.2 L MCV MCH MCHC RDW 16.6 H Plt Count Lymph % (Auto) [place] % (Auto) 10.7 H Lymph # [place] # 1.5 H Baso # Seg Neutrophils % 73.6 H Seg Neuts % (Manual) Lymphocytes % (Manual) Monocytes % (Manual) Eosinophils % (Manual) Basophils % (Manual) Nucleated RBC % Seg Neutrophils # 10.5 H Seg Neutrophils # Man Lymphocytes # (Manual) Monocytes # (Manual) Eosinophils # (Manual) Basophils # (Manual) PT INR Fibrinogen dRVVT Confirm Interp Factor V Activity POC ABG pH POC ABG pCO2 POC ABG pO2 ABG pO2 ABG HCO3 ABG Base Excess ABG Hemoglobin Oxyhemoglobin Sodium 132 L Potassium Chloride 94.7 L Carbon Dioxide BUN 51 H Creatinine 1.6 H Glucose 130 H POC Glucose Lactic Acid Calcium 8.3 L Ionized Calcium Phosphorus 1.60 L D Magnesium Direct Bilirubin AST ALT Alkaline Phosphatase Lactate Dehydrogenase Troponin T C-Reactive Protein Total Protein Albumin Prealbumin Triglycerides Cholesterol LDL Cholesterol Direct HDL Cholesterol 25-OH Vitamin D Total PTH Intact Urine pH Urine WBC (Auto) Urine Creatinine Urine Total Protein Fluid Total Protein Vancomycin Trough Rheumatoid Factor Complement C4 Miscellaneous Test Crossmatch 10/25/16 10/25/16 10/25/16 04:32 11:48 17:22 WBC RBC Hgb Hct MCV MCH MCHC RDW Plt Count Lymph % (Auto) [place] % (Auto) Lymph # [place] # Baso # Seg Neutrophils % Seg Neuts % (Manual) Lymphocytes % (Manual) Monocytes % (Manual) Eosinophils % (Manual) Basophils % (Manual) Nucleated RBC % Seg Neutrophils # Seg Neutrophils # Man Lymphocytes # (Manual) Monocytes # (Manual) Eosinophils # (Manual) Basophils # (Manual) PT INR Fibrinogen dRVVT Confirm Interp Factor V Activity POC ABG pH POC ABG pCO2 POC ABG pO2 ABG pO2 ABG HCO3 ABG Base Excess ABG Hemoglobin Oxyhemoglobin Sodium Potassium Chloride Carbon Dioxide BUN Creatinine Glucose POC Glucose 124 H 171 H 120 H Lactic Acid Calcium Ionized Calcium Phosphorus Magnesium Direct Bilirubin AST ALT Alkaline Phosphatase Lactate Dehydrogenase Troponin T C-Reactive Protein Total Protein Albumin Prealbumin Triglycerides Cholesterol LDL Cholesterol Direct HDL Cholesterol 25-OH Vitamin D Total PTH Intact Urine pH Urine WBC (Auto) Urine Creatinine Urine Total Protein Fluid Total Protein Vancomycin Trough Rheumatoid Factor Complement C4 Miscellaneous Test Crossmatch 10/26/16 10/26/16 10/26/16 04:54 07:06 07:06 WBC 16.9 H RBC 3.06 L Hgb 9.1 L Hct 26.9 L MCV MCH MCHC RDW 16.9 H Plt Count Lymph % (Auto) [place] % (Auto) Lymph # [place] # Baso # Seg Neutrophils % Seg Neuts % (Manual) 71.0 H Lymphocytes % (Manual) 5.0 L Monocytes % (Manual) 12.0 H Eosinophils % (Manual) Basophils % (Manual) Nucleated RBC % Seg Neutrophils # Seg Neutrophils # Man 12.0 H Lymphocytes # (Manual) 0.8 L Monocytes # (Manual) 2.0 H Eosinophils # (Manual) Basophils # (Manual) PT INR Fibrinogen dRVVT Confirm Interp Factor V Activity POC ABG pH POC ABG pCO2 POC ABG pO2 ABG pO2 ABG HCO3 ABG Base Excess ABG Hemoglobin Oxyhemoglobin Sodium 135 L Potassium Chloride 97.1 L Carbon Dioxide BUN 73 H Creatinine 2.2 H Glucose 117 H POC Glucose 123 H Lactic Acid Calcium Ionized Calcium Phosphorus 1.70 L Magnesium Direct Bilirubin AST ALT Alkaline Phosphatase Lactate Dehydrogenase Troponin T C-Reactive Protein Total Protein Albumin Prealbumin Triglycerides Cholesterol LDL Cholesterol Direct HDL Cholesterol 25-OH Vitamin D Total PTH Intact Urine pH Urine WBC (Auto) Urine Creatinine Urine Total Protein Fluid Total Protein Vancomycin Trough Rheumatoid Factor Complement C4 Miscellaneous Test Crossmatch 10/26/16 10/26/16 10/26/16 12:12 17:29 23:42 WBC RBC Hgb Hct MCV MCH MCHC RDW Plt Count Lymph % (Auto) [place] % (Auto) Lymph # [place] # Baso # Seg Neutrophils % Seg Neuts % (Manual) Lymphocytes % (Manual) Monocytes % (Manual) Eosinophils % (Manual) Basophils % (Manual) Nucleated RBC % Seg Neutrophils # Seg Neutrophils # Man Lymphocytes # (Manual) Monocytes # (Manual) Eosinophils # (Manual) Basophils # (Manual) PT INR Fibrinogen dRVVT Confirm Interp Factor V Activity POC ABG pH POC ABG pCO2 POC ABG pO2 ABG pO2 ABG HCO3 ABG Base Excess ABG Hemoglobin Oxyhemoglobin Sodium Potassium Chloride Carbon Dioxide BUN Creatinine Glucose POC Glucose 126 H 161 H 118 H Lactic Acid Calcium Ionized Calcium Phosphorus Magnesium Direct Bilirubin AST ALT Alkaline Phosphatase Lactate Dehydrogenase Troponin T C-Reactive Protein Total Protein Albumin Prealbumin Triglycerides Cholesterol LDL Cholesterol Direct HDL Cholesterol 25-OH Vitamin D Total PTH Intact Urine pH Urine WBC (Auto) Urine Creatinine Urine Total Protein Fluid Total Protein Vancomycin Trough Rheumatoid Factor Complement C4 Miscellaneous Test Crossmatch 10/27/16 10/27/16 10/27/16 05:03 06:30 06:30 WBC 13.9 H RBC 3.09 L Hgb 9.2 L Hct 27.5 L MCV MCH MCHC RDW 17.0 H Plt Count Lymph % (Auto) [place] % (Auto) Lymph # [place] # Baso # Seg Neutrophils % Seg Neuts % (Manual) 78.0 H Lymphocytes % (Manual) Monocytes % (Manual) Eosinophils % (Manual) Basophils % (Manual) Nucleated RBC % 2.0 H Seg Neutrophils # Seg Neutrophils # Man 10.8 H Lymphocytes # (Manual) Monocytes # (Manual) 1.0 H Eosinophils # (Manual) Basophils # (Manual) PT INR Fibrinogen dRVVT Confirm Interp Factor V Activity POC ABG pH POC ABG pCO2 POC ABG pO2 ABG pO2 ABG HCO3 ABG Base Excess ABG Hemoglobin Oxyhemoglobin Sodium Potassium Chloride Carbon Dioxide BUN 40 H Creatinine 1.5 H Glucose 135 H POC Glucose 107 H Lactic Acid Calcium 8.3 L Ionized Calcium Phosphorus 1.30 L D Magnesium Direct Bilirubin AST ALT Alkaline Phosphatase Lactate Dehydrogenase Troponin T C-Reactive Protein Total Protein Albumin Prealbumin Triglycerides Cholesterol LDL Cholesterol Direct HDL Cholesterol 25-OH Vitamin D Total PTH Intact Urine pH Urine WBC (Auto) Urine Creatinine Urine Total Protein Fluid Total Protein Vancomycin Trough Rheumatoid Factor Complement C4 Miscellaneous Test Crossmatch 10/27/16 10/27/16 10/27/16 13:27 18:07 23:40 WBC RBC Hgb Hct MCV MCH MCHC RDW Plt Count Lymph % (Auto) [place] % (Auto) Lymph # [place] # Baso # Seg Neutrophils % Seg Neuts % (Manual) Lymphocytes % (Manual) Monocytes % (Manual) Eosinophils % (Manual) Basophils % (Manual) Nucleated RBC % Seg Neutrophils # Seg Neutrophils # Man Lymphocytes # (Manual) Monocytes # (Manual) Eosinophils # (Manual) Basophils # (Manual) PT INR Fibrinogen dRVVT Confirm Interp Factor V Activity POC ABG pH POC ABG pCO2 POC ABG pO2 ABG pO2 ABG HCO3 ABG Base Excess ABG Hemoglobin Oxyhemoglobin Sodium Potassium Chloride Carbon Dioxide BUN Creatinine Glucose POC Glucose 117 H 121 H 118 H Lactic Acid Calcium Ionized Calcium Phosphorus Magnesium Direct Bilirubin AST ALT Alkaline Phosphatase Lactate Dehydrogenase Troponin T C-Reactive Protein Total Protein Albumin Prealbumin Triglycerides Cholesterol LDL Cholesterol Direct HDL Cholesterol 25-OH Vitamin D Total PTH Intact Urine pH Urine WBC (Auto) Urine Creatinine Urine Total Protein Fluid Total Protein Vancomycin Trough Rheumatoid Factor Complement C4 Miscellaneous Test Crossmatch 10/28/16 10/28/16 10/28/16 05:48 06:45 06:45 WBC 14.7 H RBC 3.05 L Hgb 9.0 L Hct 26.9 L MCV MCH MCHC RDW 16.8 H Plt Count Lymph % (Auto) 8.[address] [place] % (Auto) 8.4 H Lymph # [place] # 1.2 H Baso # Seg Neutrophils % 81.9 H Seg Neuts % (Manual) Lymphocytes % (Manual) Monocytes % (Manual) Eosinophils % (Manual) Basophils % (Manual) Nucleated RBC % Seg Neutrophils # 12.1 H Seg Neutrophils # Man Lymphocytes # (Manual) Monocytes # (Manual) Eosinophils # (Manual) Basophils # (Manual) PT INR Fibrinogen dRVVT Confirm Interp Factor V Activity POC ABG pH POC ABG pCO2 POC ABG pO2 ABG pO2 ABG HCO3 ABG Base Excess ABG Hemoglobin Oxyhemoglobin Sodium Potassium Chloride Carbon Dioxide BUN 60 H Creatinine 1.9 H Glucose 120 H POC Glucose 114 H Lactic Acid Calcium Ionized Calcium Phosphorus Magnesium Direct Bilirubin AST ALT Alkaline Phosphatase Lactate Dehydrogenase Troponin T C-Reactive Protein Total Protein Albumin Prealbumin Triglycerides Cholesterol LDL Cholesterol Direct HDL Cholesterol 25-OH Vitamin D Total PTH Intact Urine pH Urine WBC (Auto) Urine Creatinine Urine Total Protein Fluid Total Protein Vancomycin Trough Rheumatoid Factor Complement C4 Miscellaneous Test Crossmatch 10/28/16 10/28/16 10/29/16 17:08 23:50 05:10 WBC RBC Hgb Hct MCV MCH MCHC RDW Plt Count Lymph % (Auto) [place] % (Auto) Lymph # [place] # Baso # Seg Neutrophils % Seg Neuts % (Manual) Lymphocytes % (Manual) Monocytes % (Manual) Eosinophils % (Manual) Basophils % (Manual) Nucleated RBC % Seg Neutrophils # Seg Neutrophils # Man Lymphocytes # (Manual) Monocytes # (Manual) Eosinophils # (Manual) Basophils # (Manual) PT INR Fibrinogen dRVVT Confirm Interp Factor V Activity POC ABG pH POC ABG pCO2 POC ABG pO2 ABG pO2 ABG HCO3 ABG Base Excess ABG Hemoglobin Oxyhemoglobin Sodium Potassium Chloride Carbon Dioxide BUN Creatinine Glucose POC Glucose 109 H 110 H 124 H Lactic Acid Calcium Ionized Calcium Phosphorus Magnesium Direct Bilirubin AST ALT Alkaline Phosphatase Lactate Dehydrogenase Troponin T C-Reactive Protein Total Protein Albumin Prealbumin Triglycerides Cholesterol LDL Cholesterol Direct HDL Cholesterol 25-OH Vitamin D Total PTH Intact Urine pH Urine WBC (Auto) Urine Creatinine Urine Total Protein Fluid Total Protein Vancomycin Trough Rheumatoid Factor Complement C4 Miscellaneous Test Crossmatch 10/29/16 10/29/16 10/29/16 07:45 07:45 12:19 WBC 14.7 H RBC 3.15 L Hgb 9.3 L Hct 28.9 L MCV MCH MCHC RDW 17.0 H Plt Count Lymph % (Auto) 11.[address] [place] % (Auto) 8.6 H Lymph # [place] # 1.3 H Baso # Seg Neutrophils % 78.1 H Seg Neuts % (Manual) Lymphocytes % (Manual) Monocytes % (Manual) Eosinophils % (Manual) Basophils % (Manual) Nucleated RBC % Seg Neutrophils # 11.4 H Seg Neutrophils # Man Lymphocytes # (Manual) Monocytes # (Manual) Eosinophils # (Manual) Basophils # (Manual) PT INR Fibrinogen dRVVT Confirm Interp Factor V Activity POC ABG pH POC ABG pCO2 POC ABG pO2 ABG pO2 ABG HCO3 ABG Base Excess ABG Hemoglobin Oxyhemoglobin Sodium Potassium 5.1 H Chloride Carbon Dioxide 19 L BUN 78 H Creatinine 2.2 H Glucose 116 H POC Glucose 118 H Lactic Acid Calcium Ionized Calcium Phosphorus Magnesium Direct Bilirubin AST ALT Alkaline Phosphatase Lactate Dehydrogenase Troponin T C-Reactive Protein Total Protein Albumin Prealbumin Triglycerides Cholesterol LDL Cholesterol Direct HDL Cholesterol 25-OH Vitamin D Total PTH Intact Urine pH Urine WBC (Auto) Urine Creatinine Urine Total Protein Fluid Total Protein Vancomycin Trough Rheumatoid Factor Complement C4 Miscellaneous Test Crossmatch 10/29/16 10/30/16 10/30/16 17:49 01:52 03:28 WBC RBC Hgb Hct MCV MCH MCHC RDW Plt Count Lymph % (Auto) [place] % (Auto) Lymph # [place] # Baso # Seg Neutrophils % Seg Neuts % (Manual) Lymphocytes % (Manual) Monocytes % (Manual) Eosinophils % (Manual) Basophils % (Manual) Nucleated RBC % Seg Neutrophils # Seg Neutrophils # Man Lymphocytes # (Manual) Monocytes # (Manual) Eosinophils # (Manual) Basophils # (Manual) PT INR Fibrinogen dRVVT Confirm Interp Factor V Activity POC ABG pH POC ABG pCO2 POC ABG pO2 ABG pO2 ABG HCO3 ABG Base Excess ABG Hemoglobin Oxyhemoglobin Sodium Potassium 5.4 H Chloride 97.5 L Carbon Dioxide 19 L BUN 90 H Creatinine 2.5 H Glucose POC Glucose 120 H 129 H Lactic Acid Calcium Ionized Calcium Phosphorus 5.20 H Magnesium Direct Bilirubin AST ALT Alkaline Phosphatase Lactate Dehydrogenase Troponin T C-Reactive Protein Total Protein Albumin Prealbumin Triglycerides Cholesterol LDL Cholesterol Direct HDL Cholesterol 25-OH Vitamin D Total PTH Intact Urine pH Urine WBC (Auto) Urine Creatinine Urine Total Protein Fluid Total Protein Vancomycin Trough Rheumatoid Factor Complement C4 Miscellaneous Test Crossmatch 10/30/16 10/30/16 10/30/16 03:28 08:19 08:19 WBC 11.6 H 15.9 H RBC 2.75 L 2.82 L Hgb 7.9 L 8.3 L Hct 24.2 L 25.2 L MCV MCH MCHC RDW 16.7 H 17.2 H Plt Count Lymph % (Auto) [place] % (Auto) 9.8 H Lymph # [place] # 1.1 H Baso # Seg Neutrophils % 74.2 H Seg Neuts % (Manual) Lymphocytes % (Manual) Monocytes % (Manual) Eosinophils % (Manual) Basophils % (Manual) Nucleated RBC % Seg Neutrophils # 8.6 H Seg Neutrophils # Man Lymphocytes # (Manual) Monocytes # (Manual) Eosinophils # (Manual) Basophils # (Manual) PT INR Fibrinogen dRVVT Confirm Interp Factor V Activity POC ABG pH POC ABG pCO2 POC ABG pO2 ABG pO2 ABG HCO3 ABG Base Excess ABG Hemoglobin Oxyhemoglobin Sodium Potassium 5.3 H Chloride 97.4 L Carbon Dioxide 19 L BUN 93 H Creatinine 2.6 H Glucose POC Glucose Lactic Acid Calcium Ionized Calcium Phosphorus Magnesium Direct Bilirubin AST ALT Alkaline Phosphatase Lactate Dehydrogenase Troponin T C-Reactive Protein Total Protein Albumin Prealbumin Triglycerides Cholesterol LDL Cholesterol Direct HDL Cholesterol 25-OH Vitamin D Total PTH Intact Urine pH Urine WBC (Auto) Urine Creatinine Urine Total Protein Fluid Total Protein Vancomycin Trough Rheumatoid Factor Complement C4 Miscellaneous Test Crossmatch 10/30/16 10/30/16 10/31/16 17:11 23:56 00:40 WBC RBC Hgb Hct MCV MCH MCHC RDW Plt Count Lymph % (Auto) [place] % (Auto) Lymph # [place] # Baso # Seg Neutrophils % Seg Neuts % (Manual) Lymphocytes % (Manual) Monocytes % (Manual) Eosinophils % (Manual) Basophils % (Manual) Nucleated RBC % Seg Neutrophils # Seg Neutrophils # Man Lymphocytes # (Manual) Monocytes # (Manual) Eosinophils # (Manual) Basophils # (Manual) PT INR Fibrinogen dRVVT Confirm Interp Factor V Activity POC ABG pH POC ABG pCO2 POC ABG pO2 ABG pO2 ABG HCO3 ABG Base Excess ABG Hemoglobin Oxyhemoglobin Sodium Potassium Chloride Carbon Dioxide BUN Creatinine Glucose POC Glucose 106 H 117 H 120 H Lactic Acid Calcium Ionized Calcium Phosphorus Magnesium Direct Bilirubin AST ALT Alkaline Phosphatase Lactate Dehydrogenase Troponin T C-Reactive Protein Total Protein Albumin Prealbumin Triglycerides Cholesterol LDL Cholesterol Direct HDL Cholesterol 25-OH Vitamin D Total PTH Intact Urine pH Urine WBC (Auto) Urine Creatinine Urine Total Protein Fluid Total Protein Vancomycin Trough Rheumatoid Factor Complement C4 Miscellaneous Test Crossmatch 10/31/16 10/31/16 10/31/16 05:43 07:15 07:15 WBC 12.1 H RBC 2.63 L Hgb 7.7 L Hct 23.3 L MCV MCH MCHC RDW 16.7 H Plt Count Lymph % (Auto) 11.[address] [place] % (Auto) 7.7 H Lymph # [place] # 0.9 H Baso # Seg Neutrophils % 78.0 H Seg Neuts % (Manual) Lymphocytes % (Manual) Monocytes % (Manual) Eosinophils % (Manual) Basophils % (Manual) Nucleated RBC % Seg Neutrophils # 9.4 H Seg Neutrophils # Man Lymphocytes # (Manual) Monocytes # (Manual) Eosinophils # (Manual) Basophils # (Manual) PT INR Fibrinogen dRVVT Confirm Interp Factor V Activity POC ABG pH POC ABG pCO2 POC ABG pO2 ABG pO2 ABG HCO3 ABG Base Excess ABG Hemoglobin Oxyhemoglobin Sodium Potassium Chloride 96.4 L Carbon Dioxide 21 L BUN 99 H Creatinine 2.6 H Glucose 144 H POC Glucose 125 H Lactic Acid Calcium Ionized Calcium Phosphorus 4.80 H Magnesium Direct Bilirubin AST ALT Alkaline Phosphatase Lactate Dehydrogenase Troponin T C-Reactive Protein Total Protein Albumin Prealbumin Triglycerides Cholesterol LDL Cholesterol Direct HDL Cholesterol 25-OH Vitamin D Total PTH Intact Urine pH Urine WBC (Auto) Urine Creatinine Urine Total Protein Fluid Total Protein Vancomycin Trough Rheumatoid Factor Complement C4 Miscellaneous Test Crossmatch 10/31/16 10/31/16 11/01/16 11:46 18:34 00:20 WBC RBC Hgb Hct MCV MCH MCHC RDW Plt Count Lymph % (Auto) [place] % (Auto) Lymph # [place] # Baso # Seg Neutrophils % Seg Neuts % (Manual) Lymphocytes % (Manual) Monocytes % (Manual) Eosinophils % (Manual) Basophils % (Manual) Nucleated RBC % Seg Neutrophils # Seg Neutrophils # Man Lymphocytes # (Manual) Monocytes # (Manual) Eosinophils # (Manual) Basophils # (Manual) PT INR Fibrinogen dRVVT Confirm Interp Factor V Activity POC ABG pH POC ABG pCO2 POC ABG pO2 ABG pO2 ABG HCO3 ABG Base Excess ABG Hemoglobin Oxyhemoglobin Sodium Potassium Chloride Carbon Dioxide BUN Creatinine Glucose POC Glucose 159 H 140 H 132 H Lactic Acid Calcium Ionized Calcium Phosphorus Magnesium Direct Bilirubin AST ALT Alkaline Phosphatase Lactate Dehydrogenase Troponin T C-Reactive Protein Total Protein Albumin Prealbumin Triglycerides Cholesterol LDL Cholesterol Direct HDL Cholesterol 25-OH Vitamin D Total PTH Intact Urine pH Urine WBC (Auto) Urine Creatinine Urine Total Protein Fluid Total Protein Vancomycin Trough Rheumatoid Factor Complement C4 Miscellaneous Test Crossmatch 11/01/16 11/01/16 11/01/16 04:55 04:55 06:11 WBC 11.2 H RBC 2.68 L Hgb 7.5 L Hct 23.7 L MCV MCH MCHC RDW 16.1 H Plt Count Lymph % (Auto) [place] % (Auto) 9.8 H Lymph # [place] # 1.1 H Baso # Seg Neutrophils % 70.8 H Seg Neuts % (Manual) Lymphocytes % (Manual) Monocytes % (Manual) Eosinophils % (Manual) Basophils % (Manual) Nucleated RBC % Seg Neutrophils # 7.9 H Seg Neutrophils # Man Lymphocytes # (Manual) Monocytes # (Manual) Eosinophils # (Manual) Basophils # (Manual) PT INR Fibrinogen dRVVT Confirm Interp Factor V Activity POC ABG pH POC ABG pCO2 POC ABG pO2 ABG pO2 ABG HCO3 ABG Base Excess ABG Hemoglobin Oxyhemoglobin Sodium Potassium 3.3 L D Chloride Carbon Dioxide BUN 61 H Creatinine 1.9 H Glucose 114 H POC Glucose 115 H Lactic Acid Calcium Ionized Calcium Phosphorus 1.80 L D Magnesium Direct Bilirubin AST ALT Alkaline Phosphatase Lactate Dehydrogenase Troponin T C-Reactive Protein Total Protein Albumin Prealbumin Triglycerides Cholesterol LDL Cholesterol Direct HDL Cholesterol 25-OH Vitamin D Total PTH Intact Urine pH Urine WBC (Auto) Urine Creatinine Urine Total Protein Fluid Total Protein Vancomycin Trough Rheumatoid Factor Complement C4 Miscellaneous Test Crossmatch 11/01/16 11/01/16 11/01/16 12:29 18:23 23:58 WBC RBC Hgb Hct MCV MCH MCHC RDW Plt Count Lymph % (Auto) [place] % (Auto) Lymph # [place] # Baso # Seg Neutrophils % Seg Neuts % (Manual) Lymphocytes % (Manual) Monocytes % (Manual) Eosinophils % (Manual) Basophils % (Manual) Nucleated RBC % Seg Neutrophils # Seg Neutrophils # Man Lymphocytes # (Manual) Monocytes # (Manual) Eosinophils # (Manual) Basophils # (Manual) PT INR Fibrinogen dRVVT Confirm Interp Factor V Activity POC ABG pH POC ABG pCO2 POC ABG pO2 ABG pO2 ABG HCO3 ABG Base Excess ABG Hemoglobin Oxyhemoglobin Sodium Potassium Chloride Carbon Dioxide BUN Creatinine Glucose POC Glucose 142 H 143 H 128 H Lactic Acid Calcium Ionized Calcium Phosphorus Magnesium Direct Bilirubin AST ALT Alkaline Phosphatase Lactate Dehydrogenase Troponin T C-Reactive Protein Total Protein Albumin Prealbumin Triglycerides Cholesterol LDL Cholesterol Direct HDL Cholesterol 25-OH Vitamin D Total PTH Intact Urine pH Urine WBC (Auto) Urine Creatinine Urine Total Protein Fluid Total Protein Vancomycin Trough Rheumatoid Factor Complement C4 Miscellaneous Test Crossmatch 11/02/16 11/02/16 11/02/16 04:16 05:29 11:58 WBC RBC Hgb Hct MCV MCH MCHC RDW Plt Count Lymph % (Auto) [place] % (Auto) Lymph # [place] # Baso # Seg Neutrophils % Seg Neuts % (Manual) Lymphocytes % (Manual) Monocytes % (Manual) Eosinophils % (Manual) Basophils % (Manual) Nucleated RBC % Seg Neutrophils # Seg Neutrophils # Man Lymphocytes # (Manual) Monocytes # (Manual) Eosinophils # (Manual) Basophils # (Manual) PT INR Fibrinogen dRVVT Confirm Interp Factor V Activity POC ABG pH POC ABG pCO2 POC ABG pO2 ABG pO2 ABG HCO3 ABG Base Excess ABG Hemoglobin Oxyhemoglobin Sodium Potassium 3.1 L Chloride Carbon Dioxide BUN 73 H Creatinine 2.3 H Glucose 112 H POC Glucose 135 H 149 H Lactic Acid Calcium Ionized Calcium Phosphorus Magnesium Direct Bilirubin AST ALT Alkaline Phosphatase Lactate Dehydrogenase Troponin T C-Reactive Protein Total Protein Albumin Prealbumin Triglycerides Cholesterol LDL Cholesterol Direct HDL Cholesterol 25-OH Vitamin D Total PTH Intact Urine pH Urine WBC (Auto) Urine Creatinine Urine Total Protein Fluid Total Protein Vancomycin Trough Rheumatoid Factor Complement C4 Miscellaneous Test Crossmatch 11/02/16 11/02/16 11/03/16 17:42 22:54 06:00 WBC RBC Hgb Hct MCV MCH MCHC RDW Plt Count Lymph % (Auto) [place] % (Auto) Lymph # [place] # Baso # Seg Neutrophils % Seg Neuts % (Manual) Lymphocytes % (Manual) Monocytes % (Manual) Eosinophils % (Manual) Basophils % (Manual) Nucleated RBC % Seg Neutrophils # Seg Neutrophils # Man Lymphocytes # (Manual) Monocytes # (Manual) Eosinophils # (Manual) Basophils # (Manual) PT INR Fibrinogen dRVVT Confirm Interp Factor V Activity POC ABG pH POC ABG pCO2 POC ABG pO2 ABG pO2 ABG HCO3 ABG Base Excess ABG Hemoglobin Oxyhemoglobin Sodium Potassium Chloride 96.7 L Carbon Dioxide BUN 41 H Creatinine 1.5 H Glucose 145 H POC Glucose 182 H 115 H Lactic Acid Calcium Ionized Calcium Phosphorus 1.60 L D Magnesium 1.50 L Direct Bilirubin AST ALT Alkaline Phosphatase Lactate Dehydrogenase Troponin T C-Reactive Protein Total Protein Albumin Prealbumin Triglycerides Cholesterol LDL Cholesterol Direct HDL Cholesterol 25-OH Vitamin D Total PTH Intact Urine pH Urine WBC (Auto) Urine Creatinine Urine Total Protein Fluid Total Protein Vancomycin Trough Rheumatoid Factor Complement C4 Miscellaneous Test Crossmatch 11/03/16 11/03/16 11/03/16 11:53 17:45 23:37 WBC RBC Hgb Hct MCV MCH MCHC RDW Plt Count Lymph % (Auto) [place] % (Auto) Lymph # [place] # Baso # Seg Neutrophils % Seg Neuts % (Manual) Lymphocytes % (Manual) Monocytes % (Manual) Eosinophils % (Manual) Basophils % (Manual) Nucleated RBC % Seg Neutrophils # Seg Neutrophils # Man Lymphocytes # (Manual) Monocytes # (Manual) Eosinophils # (Manual) Basophils # (Manual) PT INR Fibrinogen dRVVT Confirm Interp Factor V Activity POC ABG pH POC ABG pCO2 POC ABG pO2 ABG pO2 ABG HCO3 ABG Base Excess ABG Hemoglobin Oxyhemoglobin Sodium Potassium Chloride Carbon Dioxide BUN Creatinine Glucose POC Glucose 131 H 134 H 113 H Lactic Acid Calcium Ionized Calcium Phosphorus Magnesium Direct Bilirubin AST ALT Alkaline Phosphatase Lactate Dehydrogenase Troponin T C-Reactive Protein Total Protein Albumin Prealbumin Triglycerides Cholesterol LDL Cholesterol Direct HDL Cholesterol 25-OH Vitamin D Total PTH Intact Urine pH Urine WBC (Auto) Urine Creatinine Urine Total Protein Fluid Total Protein Vancomycin Trough Rheumatoid Factor Complement C4 Miscellaneous Test Crossmatch 11/04/16 11/04/16 11/04/16 05:41 06:00 12:10 WBC RBC Hgb Hct MCV MCH MCHC RDW Plt Count Lymph % (Auto) [place] % (Auto) Lymph # [place] # Baso # Seg Neutrophils % Seg Neuts % (Manual) Lymphocytes % (Manual) Monocytes % (Manual) Eosinophils % (Manual) Basophils % (Manual) Nucleated RBC % Seg Neutrophils # Seg Neutrophils # Man Lymphocytes # (Manual) Monocytes # (Manual) Eosinophils # (Manual) Basophils # (Manual) PT INR Fibrinogen dRVVT Confirm Interp Factor V Activity POC ABG pH POC ABG pCO2 POC ABG pO2 ABG pO2 ABG HCO3 ABG Base Excess ABG Hemoglobin Oxyhemoglobin Sodium Potassium Chloride 96.7 L Carbon Dioxide BUN 52 H Creatinine 1.9 H Glucose 126 H POC Glucose 137 H 191 H Lactic Acid Calcium Ionized Calcium Phosphorus Magnesium Direct Bilirubin AST ALT Alkaline Phosphatase Lactate Dehydrogenase Troponin T C-Reactive Protein Total Protein Albumin Prealbumin Triglycerides Cholesterol LDL Cholesterol Direct HDL Cholesterol 25-OH Vitamin D Total PTH Intact Urine pH Urine WBC (Auto) Urine Creatinine Urine Total Protein Fluid Total Protein Vancomycin Trough Rheumatoid Factor Complement C4 Miscellaneous Test Crossmatch 11/04/16 11/05/16 11/05/16 22:57 03:10 05:10 WBC RBC Hgb Hct MCV MCH MCHC RDW Plt Count Lymph % (Auto) [place] % (Auto) Lymph # [place] # Baso # Seg Neutrophils % Seg Neuts % (Manual) Lymphocytes % (Manual) Monocytes % (Manual) Eosinophils % (Manual) Basophils % (Manual) Nucleated RBC % Seg Neutrophils # Seg Neutrophils # Man Lymphocytes # (Manual) Monocytes # (Manual) Eosinophils # (Manual) Basophils # (Manual) PT INR Fibrinogen dRVVT Confirm Interp Factor V Activity POC ABG pH POC ABG pCO2 POC ABG pO2 ABG pO2 ABG HCO3 ABG Base Excess ABG Hemoglobin Oxyhemoglobin Sodium 136 L Potassium Chloride 97.2 L Carbon Dioxide BUN 32 H Creatinine 1.3 H Glucose 123 H POC Glucose 125 H 108 H Lactic Acid Calcium 7.8 L Ionized Calcium Phosphorus Magnesium Direct Bilirubin AST ALT Alkaline Phosphatase Lactate Dehydrogenase Troponin T C-Reactive Protein Total Protein Albumin Prealbumin Triglycerides Cholesterol LDL Cholesterol Direct HDL Cholesterol 25-OH Vitamin D Total PTH Intact Urine pH Urine WBC (Auto) Urine Creatinine Urine Total Protein Fluid Total Protein Vancomycin Trough Rheumatoid Factor Complement C4 Miscellaneous Test Crossmatch 11/05/16 11/05/16 11/05/16 12:23 13:09 13:25 WBC RBC Hgb Hct MCV MCH MCHC RDW Plt Count Lymph % (Auto) [place] % (Auto) Lymph # [place] # Baso # Seg Neutrophils % Seg Neuts % (Manual) Lymphocytes % (Manual) Monocytes % (Manual) Eosinophils % (Manual) Basophils % (Manual) Nucleated RBC % Seg Neutrophils # Seg Neutrophils # Man Lymphocytes # (Manual) Monocytes # (Manual) Eosinophils # (Manual) Basophils # (Manual) PT INR Fibrinogen dRVVT Confirm Interp Factor V Activity POC ABG pH POC ABG pCO2 POC ABG pO2 ABG pO2 ABG HCO3 ABG Base Excess ABG Hemoglobin Oxyhemoglobin Sodium Potassium Chloride Carbon Dioxide BUN Creatinine Glucose POC Glucose 124 H Lactic Acid Calcium Ionized Calcium Phosphorus Magnesium Direct Bilirubin AST ALT Alkaline Phosphatase Lactate Dehydrogenase Troponin T C-Reactive Protein 11.40 H Total Protein Albumin Prealbumin Triglycerides Cholesterol LDL Cholesterol Direct HDL Cholesterol 25-OH Vitamin D Total PTH Intact Urine pH 9.0 H Urine WBC (Auto) Urine Creatinine Urine Total Protein Fluid Total Protein Vancomycin Trough Rheumatoid Factor Complement C4 Miscellaneous Test Crossmatch 11/05/16 11/05/16 11/05/16 13:25 17:54 23:42 WBC RBC Hgb Hct MCV MCH MCHC RDW Plt Count Lymph % (Auto) [place] % (Auto) Lymph # [place] # Baso # Seg Neutrophils % Seg Neuts % (Manual) Lymphocytes % (Manual) Monocytes % (Manual) Eosinophils % (Manual) Basophils % (Manual) Nucleated RBC % Seg Neutrophils # Seg Neutrophils # Man Lymphocytes # (Manual) Monocytes # (Manual) Eosinophils # (Manual) Basophils # (Manual) PT INR Fibrinogen dRVVT Confirm Interp Factor V Activity POC ABG pH POC ABG pCO2 POC ABG pO2 ABG pO2 ABG HCO3 ABG Base Excess ABG Hemoglobin Oxyhemoglobin Sodium Potassium Chloride Carbon Dioxide BUN Creatinine Glucose POC Glucose 114 H 134 H Lactic Acid Calcium Ionized Calcium Phosphorus Magnesium Direct Bilirubin AST ALT Alkaline Phosphatase Lactate Dehydrogenase Troponin T C-Reactive Protein Total Protein Albumin Prealbumin Triglycerides Cholesterol LDL Cholesterol Direct HDL Cholesterol 25-OH Vitamin D Total PTH Intact Urine pH Urine WBC (Auto) Urine Creatinine Urine Total Protein Fluid Total Protein Vancomycin Trough Rheumatoid Factor Complement C4 Miscellaneous Test Flexitest 1 H Crossmatch 11/06/16 11/06/16 11/06/16 04:56 06:25 06:25 WBC RBC 2.50 L Hgb 7.3 L Hct 22.5 L MCV MCH MCHC RDW 16.9 H Plt Count Lymph % (Auto) [place] % (Auto) 10.5 H Lymph # [place] # 1.1 H Baso # Seg Neutrophils % Seg Neuts % (Manual) Lymphocytes % (Manual) Monocytes % (Manual) Eosinophils % (Manual) Basophils % (Manual) Nucleated RBC % Seg Neutrophils # Seg Neutrophils # Man Lymphocytes # (Manual) Monocytes # (Manual) Eosinophils # (Manual) Basophils # (Manual) PT INR Fibrinogen dRVVT Confirm Interp Factor V Activity POC ABG pH POC ABG pCO2 POC ABG pO2 ABG pO2 ABG HCO3 ABG Base Excess ABG Hemoglobin Oxyhemoglobin Sodium Potassium 5.1 H Chloride 95.9 L Carbon Dioxide BUN 52 H Creatinine 1.8 H Glucose 117 H POC Glucose 120 H Lactic Acid Calcium Ionized Calcium Phosphorus Magnesium Direct Bilirubin AST 103 H ALT 77 H Alkaline Phosphatase 285 H Lactate Dehydrogenase Troponin T C-Reactive Protein Total Protein 6.2 L Albumin 1.8 L Prealbumin 0.180 L Triglycerides Cholesterol LDL Cholesterol Direct HDL Cholesterol 25-OH Vitamin D Total PTH Intact Urine pH Urine WBC (Auto) Urine Creatinine Urine Total Protein Fluid Total Protein Vancomycin Trough Rheumatoid Factor Complement C4 Miscellaneous Test Crossmatch 11/06/16 11/06/16 11/06/16 11:56 17:14 23:52 WBC RBC Hgb Hct MCV MCH MCHC RDW Plt Count Lymph % (Auto) [place] % (Auto) Lymph # [place] # Baso # Seg Neutrophils % Seg Neuts % (Manual) Lymphocytes % (Manual) Monocytes % (Manual) Eosinophils % (Manual) Basophils % (Manual) Nucleated RBC % Seg Neutrophils # Seg Neutrophils # Man Lymphocytes # (Manual) Monocytes # (Manual) Eosinophils # (Manual) Basophils # (Manual) PT INR Fibrinogen dRVVT Confirm Interp Factor V Activity POC ABG pH POC ABG pCO2 POC ABG pO2 ABG pO2 ABG HCO3 ABG Base Excess ABG Hemoglobin Oxyhemoglobin Sodium Potassium Chloride Carbon Dioxide BUN Creatinine Glucose POC Glucose 141 H 125 H 130 H Lactic Acid Calcium Ionized Calcium Phosphorus Magnesium Direct Bilirubin AST ALT Alkaline Phosphatase Lactate Dehydrogenase Troponin T C-Reactive Protein Total Protein Albumin Prealbumin Triglycerides Cholesterol LDL Cholesterol Direct HDL Cholesterol 25-OH Vitamin D Total PTH Intact Urine pH Urine WBC (Auto) Urine Creatinine Urine Total Protein Fluid Total Protein Vancomycin Trough Rheumatoid Factor Complement C4 Miscellaneous Test Crossmatch 11/07/16 11/07/16 11/07/16 06:30 06:30 09:37 WBC RBC 2.18 L Hgb 6.3 L Hct 19.7 L* MCV MCH MCHC RDW 16.8 H Plt Count Lymph % (Auto) [place] % (Auto) 10.0 H Lymph # [place] # 1.0 H Baso # Seg Neutrophils % Seg Neuts % (Manual) Lymphocytes % (Manual) Monocytes % (Manual) Eosinophils % (Manual) Basophils % (Manual) Nucleated RBC % Seg Neutrophils # Seg Neutrophils # Man Lymphocytes # (Manual) Monocytes # (Manual) Eosinophils # (Manual) Basophils # (Manual) PT INR Fibrinogen dRVVT Confirm Interp Factor V Activity POC ABG pH POC ABG pCO2 POC ABG pO2 ABG pO2 ABG HCO3 ABG Base Excess ABG Hemoglobin Oxyhemoglobin Sodium 135 L Potassium Chloride 95.6 L Carbon Dioxide BUN 70 H Creatinine 2.0 H Glucose 126 H POC Glucose Lactic Acid Calcium Ionized Calcium Phosphorus Magnesium Direct Bilirubin AST ALT Alkaline Phosphatase Lactate Dehydrogenase Troponin T C-Reactive Protein Total Protein Albumin Prealbumin Triglycerides Cholesterol LDL Cholesterol Direct HDL Cholesterol 25-OH Vitamin D Total PTH Intact Urine pH Urine WBC (Auto) Urine Creatinine Urine Total Protein Fluid Total Protein Vancomycin Trough Rheumatoid Factor Complement C4 Miscellaneous Test Crossmatch See Detail 11/07/16 11/07/16 11/07/16 12:52 18:51 21:26 WBC RBC Hgb Hct MCV MCH MCHC RDW Plt Count Lymph % (Auto) [place] % (Auto) Lymph # [place] # Baso # Seg Neutrophils % Seg Neuts % (Manual) Lymphocytes % (Manual) Monocytes % (Manual) Eosinophils % (Manual) Basophils % (Manual) Nucleated RBC % Seg Neutrophils # Seg Neutrophils # Man Lymphocytes # (Manual) Monocytes # (Manual) Eosinophils # (Manual) Basophils # (Manual) PT INR Fibrinogen dRVVT Confirm Interp Factor V Activity POC ABG pH 7.523 H POC ABG pCO2 34.6 L POC ABG pO2 53 L ABG pO2 ABG HCO3 ABG Base Excess ABG Hemoglobin Oxyhemoglobin Sodium Potassium Chloride Carbon Dioxide BUN Creatinine Glucose POC Glucose 142 H 155 H Lactic Acid Calcium Ionized Calcium Phosphorus Magnesium Direct Bilirubin AST ALT Alkaline Phosphatase Lactate Dehydrogenase Troponin T C-Reactive Protein Total Protein Albumin Prealbumin Triglycerides Cholesterol LDL Cholesterol Direct HDL Cholesterol 25-OH Vitamin D Total PTH Intact Urine pH Urine WBC (Auto) Urine Creatinine Urine Total Protein Fluid Total Protein Vancomycin Trough Rheumatoid Factor Complement C4 Miscellaneous Test Crossmatch 11/07/16 11/08/16 11/08/16 21:34 13:03 23:37 WBC RBC 2.63 L Hgb 7.7 L Hct 22.7 L MCV MCH MCHC RDW 17.0 H Plt Count Lymph % (Auto) [place] % (Auto) Lymph # [place] # Baso # Seg Neutrophils % Seg Neuts % (Manual) Lymphocytes % (Manual) Monocytes % (Manual) Eosinophils % (Manual) Basophils % (Manual) Nucleated RBC % Seg Neutrophils # Seg Neutrophils # Man Lymphocytes # (Manual) Monocytes # (Manual) Eosinophils # (Manual) Basophils # (Manual) PT INR Fibrinogen dRVVT Confirm Interp Factor V Activity POC ABG pH 7.478 H POC ABG pCO2 34.0 L POC ABG pO2 50 L ABG pO2 ABG HCO3 ABG Base Excess ABG Hemoglobin Oxyhemoglobin Sodium Potassium Chloride Carbon Dioxide BUN Creatinine Glucose POC Glucose 113 H Lactic Acid Calcium Ionized Calcium Phosphorus Magnesium Direct Bilirubin AST ALT Alkaline Phosphatase Lactate Dehydrogenase Troponin T C-Reactive Protein Total Protein Albumin Prealbumin Triglycerides Cholesterol LDL Cholesterol Direct HDL Cholesterol 25-OH Vitamin D Total PTH Intact Urine pH Urine WBC (Auto) Urine Creatinine Urine Total Protein Fluid Total Protein Vancomycin Trough Rheumatoid Factor Complement C4 Miscellaneous Test Crossmatch 11/09/16 11/09/16 11/09/16 04:35 10:15 18:21 WBC RBC 2.68 L Hgb 7.8 L Hct 23.3 L MCV MCH MCHC RDW 17.0 H Plt Count Lymph % (Auto) [place] % (Auto) 12.1 H Lymph # [place] # 1.1 H Baso # Seg Neutrophils % Seg Neuts % (Manual) Lymphocytes % (Manual) Monocytes % (Manual) Eosinophils % (Manual) Basophils % (Manual) Nucleated RBC % Seg Neutrophils # Seg Neutrophils # Man Lymphocytes # (Manual) Monocytes # (Manual) Eosinophils # (Manual) Basophils # (Manual) PT INR Fibrinogen dRVVT Confirm Interp Factor V Activity POC ABG pH POC ABG pCO2 POC ABG pO2 ABG pO2 ABG HCO3 ABG Base Excess ABG Hemoglobin Oxyhemoglobin Sodium Potassium Chloride Carbon Dioxide BUN 51 H Creatinine 1.8 H Glucose POC Glucose 60 L Lactic Acid Calcium 8.3 L Ionized Calcium Phosphorus Magnesium Direct Bilirubin AST ALT Alkaline Phosphatase Lactate Dehydrogenase Troponin T C-Reactive Protein Total Protein Albumin Prealbumin Triglycerides Cholesterol LDL Cholesterol Direct HDL Cholesterol 25-OH Vitamin D Total PTH Intact Urine pH Urine WBC (Auto) Urine Creatinine Urine Total Protein Fluid Total Protein Vancomycin Trough Rheumatoid Factor Complement C4 Miscellaneous Test Crossmatch 11/09/16 11/10/16 11/10/16 18:55 07:00 11:51 WBC RBC Hgb Hct MCV MCH MCHC RDW Plt Count Lymph % (Auto) [place] % (Auto) Lymph # [place] # Baso # Seg Neutrophils % Seg Neuts % (Manual) Lymphocytes % (Manual) Monocytes % (Manual) Eosinophils % (Manual) Basophils % (Manual) Nucleated RBC % Seg Neutrophils # Seg Neutrophils # Man Lymphocytes # (Manual) Monocytes # (Manual) Eosinophils # (Manual) Basophils # (Manual) PT INR Fibrinogen dRVVT Confirm Interp Factor V Activity POC ABG pH POC ABG pCO2 POC ABG pO2 ABG pO2 ABG HCO3 ABG Base Excess ABG Hemoglobin Oxyhemoglobin Sodium Potassium 3.0 L D Chloride 97.4 L Carbon Dioxide BUN 28 H Creatinine 1.3 H Glucose POC Glucose 68 L 120 H Lactic Acid Calcium 7.8 L Ionized Calcium Phosphorus Magnesium Direct Bilirubin AST ALT Alkaline Phosphatase Lactate Dehydrogenase Troponin T C-Reactive Protein Total Protein Albumin Prealbumin Triglycerides Cholesterol LDL Cholesterol Direct HDL Cholesterol 25-OH Vitamin D Total PTH Intact Urine pH Urine WBC (Auto) Urine Creatinine Urine Total Protein Fluid Total Protein Vancomycin Trough Rheumatoid Factor Complement C4 Miscellaneous Test Crossmatch 11/10/16 11/11/16 11/11/16 14:20 06:59 06:59 WBC RBC 2.81 L Hgb 8.1 L Hct 24.4 L MCV MCH MCHC RDW 16.4 H Plt Count Lymph % (Auto) [place] % (Auto) 10.8 H Lymph # [place] # 1.0 H Baso # Seg Neutrophils % Seg Neuts % (Manual) Lymphocytes % (Manual) Monocytes % (Manual) Eosinophils % (Manual) Basophils % (Manual) Nucleated RBC % Seg Neutrophils # Seg Neutrophils # Man Lymphocytes # (Manual) Monocytes # (Manual) Eosinophils # (Manual) Basophils # (Manual) PT INR Fibrinogen dRVVT Confirm Interp Factor V Activity POC ABG pH POC ABG pCO2 POC ABG pO2 ABG pO2 ABG HCO3 ABG Base Excess ABG Hemoglobin Oxyhemoglobin Sodium Potassium Chloride Carbon Dioxide BUN Creatinine Glucose POC Glucose Lactic Acid Calcium Ionized Calcium Phosphorus Magnesium Direct Bilirubin AST ALT Alkaline Phosphatase Lactate Dehydrogenase 196 H Troponin T C-Reactive Protein Total Protein 6.1 L Albumin Prealbumin Triglycerides Cholesterol LDL Cholesterol Direct HDL Cholesterol 25-OH Vitamin D Total PTH Intact Urine pH Urine WBC (Auto) Urine Creatinine Urine Total Protein Fluid Total Protein < 3.0 L Vancomycin Trough Rheumatoid Factor Complement C4 Miscellaneous Test Crossmatch 11/11/16 11/11/16 11/12/16 06:59 09:50 04:00 WBC RBC Hgb Hct MCV MCH MCHC RDW Plt Count Lymph % (Auto) [place] % (Auto) Lymph # [place] # Baso # Seg Neutrophils % Seg Neuts % (Manual) Lymphocytes % (Manual) Monocytes % (Manual) Eosinophils % (Manual) Basophils % (Manual) Nucleated RBC % Seg Neutrophils # Seg Neutrophils # Man Lymphocytes # (Manual) Monocytes # (Manual) Eosinophils # (Manual) Basophils # (Manual) PT INR 1.18 H Fibrinogen dRVVT Confirm Interp Factor V Activity POC ABG pH POC ABG pCO2 POC ABG pO2 ABG pO2 ABG HCO3 ABG Base Excess ABG Hemoglobin Oxyhemoglobin Sodium 136 L 133 L Potassium Chloride 96.1 L 94.8 L Carbon Dioxide 21 L BUN 37 H 42 H Creatinine 1.8 H 2.0 H Glucose POC Glucose Lactic Acid Calcium Ionized Calcium Phosphorus Magnesium Direct Bilirubin AST ALT Alkaline Phosphatase Lactate Dehydrogenase Troponin T C-Reactive Protein Total Protein Albumin Prealbumin Triglycerides Cholesterol LDL Cholesterol Direct HDL Cholesterol 25-OH Vitamin D Total PTH Intact Urine pH Urine WBC (Auto) Urine Creatinine Urine Total Protein Fluid Total Protein Vancomycin Trough Rheumatoid Factor Complement C4 Miscellaneous Test Crossmatch 11/12/16 11/12/16 11/13/16 04:00 23:55 05:53 WBC RBC Hgb 8.9 L Hct 27.2 L MCV MCH MCHC RDW Plt Count Lymph % (Auto) [place] % (Auto) Lymph # [place] # Baso # Seg Neutrophils % Seg Neuts % (Manual) Lymphocytes % (Manual) Monocytes % (Manual) Eosinophils % (Manual) Basophils % (Manual) Nucleated RBC % Seg Neutrophils # Seg Neutrophils # Man Lymphocytes # (Manual) Monocytes # (Manual) Eosinophils # (Manual) Basophils # (Manual) PT INR Fibrinogen dRVVT Confirm Interp Factor V Activity POC ABG pH POC ABG pCO2 POC ABG pO2 ABG pO2 ABG HCO3 ABG Base Excess ABG Hemoglobin Oxyhemoglobin Sodium Potassium Chloride Carbon Dioxide BUN Creatinine Glucose POC Glucose 132 H 120 H Lactic Acid Calcium Ionized Calcium Phosphorus Magnesium Direct Bilirubin AST ALT Alkaline Phosphatase Lactate Dehydrogenase Troponin T C-Reactive Protein Total Protein Albumin Prealbumin Triglycerides Cholesterol LDL Cholesterol Direct HDL Cholesterol 25-OH Vitamin D Total PTH Intact Urine pH Urine WBC (Auto) Urine Creatinine Urine Total Protein Fluid Total Protein Vancomycin Trough Rheumatoid Factor Complement C4 Miscellaneous Test Crossmatch 11/13/16 11/13/16 11/13/16 11:43 17:09 23:41 WBC RBC Hgb Hct MCV MCH MCHC RDW Plt Count Lymph % (Auto) [place] % (Auto) Lymph # [place] # Baso # Seg Neutrophils % Seg Neuts % (Manual) Lymphocytes % (Manual) Monocytes % (Manual) Eosinophils % (Manual) Basophils % (Manual) Nucleated RBC % Seg Neutrophils # Seg Neutrophils # Man Lymphocytes # (Manual) Monocytes # (Manual) Eosinophils # (Manual) Basophils # (Manual) PT INR Fibrinogen dRVVT Confirm Interp Factor V Activity POC ABG pH POC ABG pCO2 POC ABG pO2 ABG pO2 ABG HCO3 ABG Base Excess ABG Hemoglobin Oxyhemoglobin Sodium Potassium Chloride Carbon Dioxide BUN Creatinine Glucose POC Glucose 114 H 113 H 108 H Lactic Acid Calcium Ionized Calcium Phosphorus Magnesium Direct Bilirubin AST ALT Alkaline Phosphatase Lactate Dehydrogenase Troponin T C-Reactive Protein Total Protein Albumin Prealbumin Triglycerides Cholesterol LDL Cholesterol Direct HDL Cholesterol 25-OH Vitamin D Total PTH Intact Urine pH Urine WBC (Auto) Urine Creatinine Urine Total Protein Fluid Total Protein Vancomycin Trough Rheumatoid Factor Complement C4 Miscellaneous Test Crossmatch 11/13/16 11/15/16 11/15/16 Unknown 00:37 03:30 WBC 11.2 H RBC 2.72 L Hgb 7.6 L Hct 23.4 L MCV MCH MCHC RDW 16.5 H Plt Count Lymph % (Auto) [place] % (Auto) Lymph # [place] # Baso # Seg Neutrophils % Seg Neuts % (Manual) Lymphocytes % (Manual) Monocytes % (Manual) Eosinophils % (Manual) Basophils % (Manual) Nucleated RBC % Seg Neutrophils # Seg Neutrophils # Man Lymphocytes # (Manual) Monocytes # (Manual) Eosinophils # (Manual) Basophils # (Manual) PT INR Fibrinogen dRVVT Confirm Interp Factor V Activity POC ABG pH POC ABG pCO2 POC ABG pO2 ABG pO2 ABG HCO3 ABG Base Excess ABG Hemoglobin Oxyhemoglobin Sodium 135 L Potassium Chloride 95.2 L Carbon Dioxide BUN 52 H Creatinine 2.2 H Glucose POC Glucose 108 H Lactic Acid Calcium Ionized Calcium Phosphorus Magnesium Direct Bilirubin AST ALT Alkaline Phosphatase Lactate Dehydrogenase Troponin T C-Reactive Protein Total Protein Albumin Prealbumin Triglycerides Cholesterol LDL Cholesterol Direct HDL Cholesterol 25-OH Vitamin D Total PTH Intact Urine pH Urine WBC (Auto) Urine Creatinine Urine Total Protein Fluid Total Protein Vancomycin Trough Rheumatoid Factor Complement C4 Miscellaneous Test Crossmatch 11/15/16 11/15/16 11/15/16 03:30 05:04 11:50 WBC RBC Hgb Hct MCV MCH MCHC RDW Plt Count Lymph % (Auto) [place] % (Auto) Lymph # [place] # Baso # Seg Neutrophils % Seg Neuts % (Manual) Lymphocytes % (Manual) Monocytes % (Manual) Eosinophils % (Manual) Basophils % (Manual) Nucleated RBC % Seg Neutrophils # Seg Neutrophils # Man Lymphocytes # (Manual) Monocytes # (Manual) Eosinophils # (Manual) Basophils # (Manual) PT INR Fibrinogen dRVVT Confirm Interp Factor V Activity POC ABG pH POC ABG pCO2 POC ABG pO2 ABG pO2 ABG HCO3 ABG Base Excess ABG Hemoglobin Oxyhemoglobin Sodium Potassium 3.4 L Chloride Carbon Dioxide BUN 25 H Creatinine 1.5 H Glucose 103 H POC Glucose 121 H 144 H Lactic Acid Calcium Ionized Calcium Phosphorus Magnesium Direct Bilirubin AST ALT Alkaline Phosphatase Lactate Dehydrogenase Troponin T C-Reactive Protein Total Protein Albumin Prealbumin Triglycerides Cholesterol LDL Cholesterol Direct HDL Cholesterol 25-OH Vitamin D Total PTH Intact Urine pH Urine WBC (Auto) Urine Creatinine Urine Total Protein Fluid Total Protein Vancomycin Trough Rheumatoid Factor Complement C4 Miscellaneous Test Crossmatch 11/15/16 11/15/16 11/16/16 21:28 23:20 11:44 WBC RBC Hgb Hct MCV MCH MCHC RDW Plt Count Lymph % (Auto) [place] % (Auto) Lymph # [place] # Baso # Seg Neutrophils % Seg Neuts % (Manual) Lymphocytes % (Manual) Monocytes % (Manual) Eosinophils % (Manual) Basophils % (Manual) Nucleated RBC % Seg Neutrophils # Seg Neutrophils # Man Lymphocytes # (Manual) Monocytes # (Manual) Eosinophils # (Manual) Basophils # (Manual) PT INR Fibrinogen dRVVT Confirm Interp Factor V Activity POC ABG pH 7.462 H POC ABG pCO2 POC ABG pO2 71 L ABG pO2 ABG HCO3 ABG Base Excess ABG Hemoglobin Oxyhemoglobin Sodium Potassium Chloride Carbon Dioxide BUN Creatinine Glucose POC Glucose 116 H 133 H Lactic Acid Calcium Ionized Calcium Phosphorus Magnesium Direct Bilirubin AST ALT Alkaline Phosphatase Lactate Dehydrogenase Troponin T C-Reactive Protein Total Protein Albumin Prealbumin Triglycerides Cholesterol LDL Cholesterol Direct HDL Cholesterol 25-OH Vitamin D Total PTH Intact Urine pH Urine WBC (Auto) Urine Creatinine Urine Total Protein Fluid Total Protein Vancomycin Trough Rheumatoid Factor Complement C4 Miscellaneous Test Crossmatch 11/16/16 11/16/16 11/16/16 12:20 17:05 23:35 WBC 11.7 H RBC 2.73 L Hgb 7.6 L Hct 23.7 L MCV MCH MCHC RDW 16.6 H Plt Count Lymph % (Auto) [place] % (Auto) Lymph # [place] # Baso # Seg Neutrophils % Seg Neuts % (Manual) Lymphocytes % (Manual) Monocytes % (Manual) Eosinophils % (Manual) Basophils % (Manual) Nucleated RBC % Seg Neutrophils # Seg Neutrophils # Man Lymphocytes # (Manual) Monocytes # (Manual) Eosinophils # (Manual) Basophils # (Manual) PT INR Fibrinogen dRVVT Confirm Interp Factor V Activity POC ABG pH POC ABG pCO2 POC ABG pO2 ABG pO2 ABG HCO3 ABG Base Excess ABG Hemoglobin Oxyhemoglobin Sodium Potassium Chloride Carbon Dioxide BUN Creatinine Glucose POC Glucose 154 H 125 H Lactic Acid Calcium Ionized Calcium Phosphorus Magnesium Direct Bilirubin AST ALT Alkaline Phosphatase Lactate Dehydrogenase Troponin T C-Reactive Protein Total Protein Albumin Prealbumin Triglycerides Cholesterol LDL Cholesterol Direct HDL Cholesterol 25-OH Vitamin D Total PTH Intact Urine pH Urine WBC (Auto) Urine Creatinine Urine Total Protein Fluid Total Protein Vancomycin Trough Rheumatoid Factor Complement C4 Miscellaneous Test Crossmatch 11/17/16 11/17/16 11/17/16 03:20 03:20 03:20 WBC RBC 2.55 L Hgb 7.3 L Hct 21.9 L MCV MCH MCHC RDW 16.6 H Plt Count Lymph % (Auto) [place] % (Auto) 11.5 H Lymph # [place] # 1.1 H Baso # Seg Neutrophils % Seg Neuts % (Manual) Lymphocytes % (Manual) Monocytes % (Manual) Eosinophils % (Manual) Basophils % (Manual) Nucleated RBC % Seg Neutrophils # Seg Neutrophils # Man Lymphocytes # (Manual) Monocytes # (Manual) Eosinophils # (Manual) Basophils # (Manual) PT 16.8 H INR 1.37 H Fibrinogen dRVVT Confirm Interp Factor V Activity POC ABG pH POC ABG pCO2 POC ABG pO2 ABG pO2 ABG HCO3 ABG Base Excess ABG Hemoglobin Oxyhemoglobin Sodium Potassium 3.5 L Chloride Carbon Dioxide BUN 21 H Creatinine Glucose POC Glucose Lactic Acid Calcium 7.9 L Ionized Calcium Phosphorus Magnesium Direct Bilirubin AST ALT Alkaline Phosphatase Lactate Dehydrogenase Troponin T C-Reactive Protein Total Protein Albumin Prealbumin Triglycerides Cholesterol LDL Cholesterol Direct HDL Cholesterol 25-OH Vitamin D Total PTH Intact Urine pH Urine WBC (Auto) Urine Creatinine Urine Total Protein Fluid Total Protein Vancomycin Trough Rheumatoid Factor Complement C4 Miscellaneous Test Crossmatch 11/17/16 11/17/16 11/17/16 06:34 11:21 21:22 WBC RBC Hgb Hct MCV MCH MCHC RDW Plt Count Lymph % (Auto) [place] % (Auto) Lymph # [place] # Baso # Seg Neutrophils % Seg Neuts % (Manual) Lymphocytes % (Manual) Monocytes % (Manual) Eosinophils % (Manual) Basophils % (Manual) Nucleated RBC % Seg Neutrophils # Seg Neutrophils # Man Lymphocytes # (Manual) Monocytes # (Manual) Eosinophils # (Manual) Basophils # (Manual) PT INR Fibrinogen dRVVT Confirm Interp Factor V Activity POC ABG pH 7.467 H POC ABG pCO2 POC ABG pO2 73 L ABG pO2 ABG HCO3 ABG Base Excess ABG Hemoglobin Oxyhemoglobin Sodium Potassium Chloride Carbon Dioxide BUN Creatinine Glucose POC Glucose 121 H 119 H Lactic Acid Calcium Ionized Calcium Phosphorus Magnesium Direct Bilirubin AST ALT Alkaline Phosphatase Lactate Dehydrogenase Troponin T C-Reactive Protein Total Protein Albumin Prealbumin Triglycerides Cholesterol LDL Cholesterol Direct HDL Cholesterol 25-OH Vitamin D Total PTH Intact Urine pH Urine WBC (Auto) Urine Creatinine Urine Total Protein Fluid Total Protein Vancomycin Trough Rheumatoid Factor Complement C4 Miscellaneous Test Crossmatch 11/18/16 11/18/16 11/19/16 12:16 17:19 00:00 WBC RBC Hgb Hct MCV MCH MCHC RDW Plt Count Lymph % (Auto) [place] % (Auto) Lymph # [place] # Baso # Seg Neutrophils % Seg Neuts % (Manual) Lymphocytes % (Manual) Monocytes % (Manual) Eosinophils % (Manual) Basophils % (Manual) Nucleated RBC % Seg Neutrophils # Seg Neutrophils # Man Lymphocytes # (Manual) Monocytes # (Manual) Eosinophils # (Manual) Basophils # (Manual) PT INR Fibrinogen dRVVT Confirm Interp Factor V Activity POC ABG pH POC ABG pCO2 POC ABG pO2 ABG pO2 ABG HCO3 ABG Base Excess ABG Hemoglobin Oxyhemoglobin Sodium Potassium Chloride Carbon Dioxide BUN Creatinine Glucose POC Glucose 124 H 162 H 139 H Lactic Acid Calcium Ionized Calcium Phosphorus Magnesium Direct Bilirubin AST ALT Alkaline Phosphatase Lactate Dehydrogenase Troponin T C-Reactive Protein Total Protein Albumin Prealbumin Triglycerides Cholesterol LDL Cholesterol Direct HDL Cholesterol 25-OH Vitamin D Total PTH Intact Urine pH Urine WBC (Auto) Urine Creatinine Urine Total Protein Fluid Total Protein Vancomycin Trough Rheumatoid Factor Complement C4 Miscellaneous Test Crossmatch 11/19/16 11/19/16 11/20/16 05:00 12:43 00:40 WBC RBC Hgb Hct MCV MCH MCHC RDW Plt Count Lymph % (Auto) [place] % (Auto) Lymph # [place] # Baso # Seg Neutrophils % Seg Neuts % (Manual) Lymphocytes % (Manual) Monocytes % (Manual) Eosinophils % (Manual) Basophils % (Manual) Nucleated RBC % Seg Neutrophils # Seg Neutrophils # Man Lymphocytes # (Manual) Monocytes # (Manual) Eosinophils # (Manual) Basophils # (Manual) PT INR Fibrinogen dRVVT Confirm Interp Factor V Activity POC ABG pH POC ABG pCO2 POC ABG pO2 ABG pO2 ABG HCO3 ABG Base Excess ABG Hemoglobin Oxyhemoglobin Sodium Potassium Chloride Carbon Dioxide BUN Creatinine Glucose POC Glucose 110 H 125 H 136 H Lactic Acid Calcium Ionized Calcium Phosphorus Magnesium Direct Bilirubin AST ALT Alkaline Phosphatase Lactate Dehydrogenase Troponin T C-Reactive Protein Total Protein Albumin Prealbumin Triglycerides Cholesterol LDL Cholesterol Direct HDL Cholesterol 25-OH Vitamin D Total PTH Intact Urine pH Urine WBC (Auto) Urine Creatinine Urine Total Protein Fluid Total Protein Vancomycin Trough Rheumatoid Factor Complement C4 Miscellaneous Test Crossmatch 11/20/16 11/20/16 11/20/16 05:00 05:00 05:51 WBC 13.1 H RBC 2.74 L Hgb 7.7 L Hct 23.6 L MCV MCH MCHC RDW 16.9 H Plt Count Lymph % (Auto) [place] % (Auto) 10.8 H Lymph # [place] # 1.4 H Baso # Seg Neutrophils % Seg Neuts % (Manual) Lymphocytes % (Manual) Monocytes % (Manual) Eosinophils % (Manual) Basophils % (Manual) Nucleated RBC % Seg Neutrophils # 7.9 H Seg Neutrophils # Man Lymphocytes # (Manual) Monocytes # (Manual) Eosinophils # (Manual) Basophils # (Manual) PT INR Fibrinogen dRVVT Confirm Interp Factor V Activity POC ABG pH POC ABG pCO2 POC ABG pO2 ABG pO2 ABG HCO3 ABG Base Excess ABG Hemoglobin Oxyhemoglobin Sodium Potassium Chloride Carbon Dioxide BUN 31 H Creatinine 1.8 H Glucose 129 H POC Glucose 133 H Lactic Acid Calcium Ionized Calcium Phosphorus Magnesium Direct Bilirubin AST ALT Alkaline Phosphatase Lactate Dehydrogenase Troponin T C-Reactive Protein Total Protein Albumin Prealbumin Triglycerides Cholesterol LDL Cholesterol Direct HDL Cholesterol 25-OH Vitamin D Total PTH Intact Urine pH Urine WBC (Auto) Urine Creatinine Urine Total Protein Fluid Total Protein Vancomycin Trough Rheumatoid Factor Complement C4 Miscellaneous Test Crossmatch 11/20/16 11/20/16 11/21/16 12:40 18:10 01:20 WBC RBC Hgb Hct MCV MCH MCHC RDW Plt Count Lymph % (Auto) [place] % (Auto) Lymph # [place] # Baso # Seg Neutrophils % Seg Neuts % (Manual) Lymphocytes % (Manual) Monocytes % (Manual) Eosinophils % (Manual) Basophils % (Manual) Nucleated RBC % Seg Neutrophils # Seg Neutrophils # Man Lymphocytes # (Manual) Monocytes # (Manual) Eosinophils # (Manual) Basophils # (Manual) PT INR Fibrinogen dRVVT Confirm Interp Factor V Activity POC ABG pH POC ABG pCO2 POC ABG pO2 ABG pO2 ABG HCO3 ABG Base Excess ABG Hemoglobin Oxyhemoglobin Sodium Potassium Chloride Carbon Dioxide BUN Creatinine Glucose POC Glucose 134 H 138 H 136 H Lactic Acid Calcium Ionized Calcium Phosphorus Magnesium Direct Bilirubin AST ALT Alkaline Phosphatase Lactate Dehydrogenase Troponin T C-Reactive Protein Total Protein Albumin Prealbumin Triglycerides Cholesterol LDL Cholesterol Direct HDL Cholesterol 25-OH Vitamin D Total PTH Intact Urine pH Urine WBC (Auto) Urine Creatinine Urine Total Protein Fluid Total Protein Vancomycin Trough Rheumatoid Factor Complement C4 Miscellaneous Test Crossmatch 11/21/16 11/21/16 11/21/16 07:04 07:45 07:45 WBC 22.0 H RBC 2.91 L Hgb 8.2 L Hct 25.4 L MCV MCH MCHC RDW 17.1 H Plt Count Lymph % (Auto) [place] % (Auto) Lymph # [place] # Baso # Seg Neutrophils % Seg Neuts % (Manual) Lymphocytes % (Manual) 8.0 L Monocytes % (Manual) Eosinophils % (Manual) Basophils % (Manual) Nucleated RBC % Seg Neutrophils # Seg Neutrophils # Man 14.7 H Lymphocytes # (Manual) Monocytes # (Manual) 1.1 H Eosinophils # (Manual) Basophils # (Manual) PT INR Fibrinogen dRVVT Confirm Interp Factor V Activity POC ABG pH POC ABG pCO2 POC ABG pO2 ABG pO2 ABG HCO3 ABG Base Excess ABG Hemoglobin Oxyhemoglobin Sodium Potassium Chloride Carbon Dioxide BUN 42 H Creatinine 2.0 H Glucose POC Glucose 108 H Lactic Acid Calcium Ionized Calcium Phosphorus Magnesium Direct Bilirubin AST ALT Alkaline Phosphatase Lactate Dehydrogenase Troponin T C-Reactive Protein Total Protein Albumin Prealbumin Triglycerides Cholesterol LDL Cholesterol Direct HDL Cholesterol 25-OH Vitamin D Total PTH Intact Urine pH Urine WBC (Auto) Urine Creatinine Urine Total Protein Fluid Total Protein Vancomycin Trough Rheumatoid Factor Complement C4 Miscellaneous Test Crossmatch 11/21/16 11/21/16 11/21/16 08:38 10:09 11:20 WBC RBC Hgb Hct MCV MCH MCHC RDW Plt Count Lymph % (Auto) [place] % (Auto) Lymph # [place] # Baso # Seg Neutrophils % Seg Neuts % (Manual) Lymphocytes % (Manual) Monocytes % (Manual) Eosinophils % (Manual) Basophils % (Manual) Nucleated RBC % Seg Neutrophils # Seg Neutrophils # Man Lymphocytes # (Manual) Monocytes # (Manual) Eosinophils # (Manual) Basophils # (Manual) PT INR Fibrinogen dRVVT Confirm Interp Factor V Activity POC ABG pH 7.346 L POC ABG pCO2 34.4 L POC ABG pO2 314 H ABG pO2 ABG HCO3 ABG Base Excess ABG Hemoglobin Oxyhemoglobin Sodium Potassium Chloride Carbon Dioxide BUN Creatinine Glucose POC Glucose 195 H 153 H Lactic Acid Calcium Ionized Calcium Phosphorus Magnesium Direct Bilirubin AST ALT Alkaline Phosphatase Lactate Dehydrogenase Troponin T C-Reactive Protein Total Protein Albumin Prealbumin Triglycerides Cholesterol LDL Cholesterol Direct HDL Cholesterol 25-OH Vitamin D Total PTH Intact Urine pH Urine WBC (Auto) Urine Creatinine Urine Total Protein Fluid Total Protein Vancomycin Trough Rheumatoid Factor Complement C4 Miscellaneous Test Crossmatch 11/21/16 11/22/16 11/22/16 23:37 04:48 05:00 WBC 29.7 H RBC 2.73 L Hgb 7.5 L Hct 24.2 L MCV MCH 27 L MCHC RDW 17.4 H Plt Count Lymph % (Auto) [place] % (Auto) Lymph # [place] # Baso # Seg Neutrophils % Seg Neuts % (Manual) Lymphocytes % (Manual) 7.0 L Monocytes % (Manual) Eosinophils % (Manual) Basophils % (Manual) Nucleated RBC % Seg Neutrophils # Seg Neutrophils # Man 15.4 H Lymphocytes # (Manual) Monocytes # (Manual) Eosinophils # (Manual) Basophils # (Manual) PT INR Fibrinogen dRVVT Confirm Interp Factor V Activity POC ABG pH POC ABG pCO2 24.6 L POC ABG pO2 189 H ABG pO2 ABG HCO3 ABG Base Excess ABG Hemoglobin Oxyhemoglobin Sodium Potassium Chloride Carbon Dioxide BUN Creatinine Glucose POC Glucose 65 L Lactic Acid Calcium Ionized Calcium Phosphorus Magnesium Direct Bilirubin AST ALT Alkaline Phosphatase Lactate Dehydrogenase Troponin T C-Reactive Protein Total Protein Albumin Prealbumin Triglycerides Cholesterol LDL Cholesterol Direct HDL Cholesterol 25-OH Vitamin D Total PTH Intact Urine pH Urine WBC (Auto) Urine Creatinine Urine Total Protein Fluid Total Protein Vancomycin Trough Rheumatoid Factor Complement C4 Miscellaneous Test Crossmatch 11/22/16 11/23/16 11/23/16 05:00 03:44 04:06 WBC RBC 2.52 L Hgb 7.2 L Hct 21.5 L MCV MCH MCHC RDW 17.1 H Plt Count Lymph % (Auto) [place] % (Auto) 12.4 H Lymph # [place] # 1.4 H Baso # Seg Neutrophils % Seg Neuts % (Manual) Lymphocytes % (Manual) Monocytes % (Manual) Eosinophils % (Manual) Basophils % (Manual) Nucleated RBC % Seg Neutrophils # Seg Neutrophils # Man Lymphocytes # (Manual) Monocytes # (Manual) Eosinophils # (Manual) Basophils # (Manual) PT INR Fibrinogen dRVVT Confirm Interp Factor V Activity POC ABG pH 7.493 H POC ABG pCO2 29.5 L POC ABG pO2 49 L ABG pO2 ABG HCO3 ABG Base Excess ABG Hemoglobin Oxyhemoglobin Sodium 134 L Potassium Chloride 95.9 L Carbon Dioxide 14 L D BUN 51 H Creatinine 2.6 H Glucose POC Glucose Lactic Acid Calcium Ionized Calcium Phosphorus Magnesium Direct Bilirubin AST ALT Alkaline Phosphatase Lactate Dehydrogenase Troponin T C-Reactive Protein Total Protein Albumin Prealbumin Triglycerides Cholesterol LDL Cholesterol Direct HDL Cholesterol 25-OH Vitamin D Total PTH Intact Urine pH Urine WBC (Auto) Urine Creatinine Urine Total Protein Fluid Total Protein Vancomycin Trough Rheumatoid Factor Complement C4 Miscellaneous Test Crossmatch 11/23/16 11/23/16 11/24/16 04:06 11:29 06:39 WBC RBC Hgb Hct MCV MCH MCHC RDW Plt Count Lymph % (Auto) [place] % (Auto) Lymph # [place] # Baso # Seg Neutrophils % Seg Neuts % (Manual) Lymphocytes % (Manual) Monocytes % (Manual) Eosinophils % (Manual) Basophils % (Manual) Nucleated RBC % Seg Neutrophils # Seg Neutrophils # Man Lymphocytes # (Manual) Monocytes # (Manual) Eosinophils # (Manual) Basophils # (Manual) PT INR Fibrinogen dRVVT Confirm Interp Factor V Activity POC ABG pH POC ABG pCO2 POC ABG pO2 ABG pO2 ABG HCO3 ABG Base Excess ABG Hemoglobin Oxyhemoglobin Sodium 136 L Potassium Chloride 95.2 L Carbon Dioxide BUN 60 H Creatinine 2.9 H Glucose POC Glucose 69 L 305 H Lactic Acid Calcium Ionized Calcium Phosphorus Magnesium 1.60 L Direct Bilirubin AST ALT Alkaline Phosphatase Lactate Dehydrogenase Troponin T C-Reactive Protein Total Protein Albumin Prealbumin Triglycerides Cholesterol LDL Cholesterol Direct HDL Cholesterol 25-OH Vitamin D Total PTH Intact Urine pH Urine WBC (Auto) Urine Creatinine Urine Total Protein Fluid Total Protein Vancomycin Trough Rheumatoid Factor Complement C4 Miscellaneous Test Crossmatch 11/24/16 11/24/16 11/24/16 06:43 08:08 08:08 WBC 11.2 H RBC 2.47 L Hgb 6.8 L Hct 20.6 L MCV MCH MCHC RDW 17.0 H Plt Count Lymph % (Auto) [place] % (Auto) 10.3 H Lymph # [place] # 1.2 H Baso # Seg Neutrophils % Seg Neuts % (Manual) Lymphocytes % (Manual) Monocytes % (Manual) Eosinophils % (Manual) Basophils % (Manual) Nucleated RBC % Seg Neutrophils # Seg Neutrophils # Man Lymphocytes # (Manual) Monocytes # (Manual) Eosinophils # (Manual) Basophils # (Manual) PT INR Fibrinogen dRVVT Confirm Interp Factor V Activity POC ABG pH POC ABG pCO2 POC ABG pO2 ABG pO2 ABG HCO3 ABG Base Excess ABG Hemoglobin Oxyhemoglobin Sodium 135 L Potassium Chloride 96.3 L Carbon Dioxide BUN 61 H Creatinine 3.1 H Glucose POC Glucose 62 L Lactic Acid Calcium 8.2 L Ionized Calcium Phosphorus Magnesium Direct Bilirubin AST ALT Alkaline Phosphatase Lactate Dehydrogenase Troponin T C-Reactive Protein Total Protein Albumin Prealbumin Triglycerides Cholesterol LDL Cholesterol Direct HDL Cholesterol 25-OH Vitamin D Total PTH Intact Urine pH Urine WBC (Auto) Urine Creatinine Urine Total Protein Fluid Total Protein Vancomycin Trough Rheumatoid Factor Complement C4 Miscellaneous Test Crossmatch 11/24/16 11/24/16 11/24/16 08:34 11:20 12:41 WBC RBC Hgb Hct MCV MCH MCHC RDW Plt Count Lymph % (Auto) [place] % (Auto) Lymph # [place] # Baso # Seg Neutrophils % Seg Neuts % (Manual) Lymphocytes % (Manual) Monocytes % (Manual) Eosinophils % (Manual) Basophils % (Manual) Nucleated RBC % Seg Neutrophils # Seg Neutrophils # Man Lymphocytes # (Manual) Monocytes # (Manual) Eosinophils # (Manual) Basophils # (Manual) PT INR Fibrinogen dRVVT Confirm Interp Factor V Activity POC ABG pH POC ABG pCO2 POC ABG pO2 ABG pO2 ABG HCO3 ABG Base Excess ABG Hemoglobin Oxyhemoglobin Sodium Potassium Chloride Carbon Dioxide BUN Creatinine Glucose POC Glucose 108 H Lactic Acid Calcium Ionized Calcium Phosphorus Magnesium 1.60 L Direct Bilirubin AST ALT Alkaline Phosphatase Lactate Dehydrogenase Troponin T C-Reactive Protein Total Protein Albumin Prealbumin Triglycerides Cholesterol LDL Cholesterol Direct HDL Cholesterol 25-OH Vitamin D Total PTH Intact Urine pH Urine WBC (Auto) Urine Creatinine Urine Total Protein Fluid Total Protein Vancomycin Trough Rheumatoid Factor Complement C4 Miscellaneous Test Crossmatch See Detail 11/25/16 11/25/16 11/25/16 00:03 04:42 04:42 WBC RBC 3.03 L Hgb 8.6 L Hct 25.3 L MCV MCH MCHC RDW 16.2 H Plt Count Lymph % (Auto) [place] % (Auto) 8.1 H Lymph # [place] # Baso # Seg Neutrophils % 71.3 H Seg Neuts % (Manual) Lymphocytes % (Manual) Monocytes % (Manual) Eosinophils % (Manual) Basophils % (Manual) Nucleated RBC % Seg Neutrophils # Seg Neutrophils # Man Lymphocytes # (Manual) Monocytes # (Manual) Eosinophils # (Manual) Basophils # (Manual) PT INR Fibrinogen dRVVT Confirm Interp Factor V Activity POC ABG pH POC ABG pCO2 POC ABG pO2 ABG pO2 ABG HCO3 ABG Base Excess ABG Hemoglobin Oxyhemoglobin Sodium Potassium Chloride Carbon Dioxide BUN 61 H Creatinine 3.0 H Glucose 102 H POC Glucose 113 H Lactic Acid Calcium 8.2 L Ionized Calcium Phosphorus Magnesium Direct Bilirubin AST ALT Alkaline Phosphatase 142 H Lactate Dehydrogenase Troponin T C-Reactive Protein Total Protein 5.7 L Albumin 1.5 L Prealbumin Triglycerides Cholesterol LDL Cholesterol Direct HDL Cholesterol 25-OH Vitamin D Total PTH Intact Urine pH Urine WBC (Auto) Urine Creatinine Urine Total Protein Fluid Total Protein Vancomycin Trough Rheumatoid Factor Complement C4 Miscellaneous Test Crossmatch 11/25/16 11/25/16 11/25/16 05:12 11:31 14:12 WBC RBC Hgb Hct MCV MCH MCHC RDW Plt Count Lymph % (Auto) [place] % (Auto) Lymph # [place] # Baso # Seg Neutrophils % Seg Neuts % (Manual) Lymphocytes % (Manual) Monocytes % (Manual) Eosinophils % (Manual) Basophils % (Manual) Nucleated RBC % Seg Neutrophils # Seg Neutrophils # Man Lymphocytes # (Manual) Monocytes # (Manual) Eosinophils # (Manual) Basophils # (Manual) PT INR Fibrinogen dRVVT Confirm Interp Factor V Activity POC ABG pH 7.487 H POC ABG pCO2 POC ABG pO2 153 H ABG pO2 ABG HCO3 ABG Base Excess ABG Hemoglobin Oxyhemoglobin Sodium Potassium Chloride Carbon Dioxide BUN Creatinine Glucose POC Glucose 131 H 140 H Lactic Acid Calcium Ionized Calcium Phosphorus Magnesium Direct Bilirubin AST ALT Alkaline Phosphatase Lactate Dehydrogenase Troponin T C-Reactive Protein Total Protein Albumin Prealbumin Triglycerides Cholesterol LDL Cholesterol Direct HDL Cholesterol 25-OH Vitamin D Total PTH Intact Urine pH Urine WBC (Auto) Urine Creatinine Urine Total Protein Fluid Total Protein Vancomycin Trough Rheumatoid Factor Complement C4 Miscellaneous Test Crossmatch 11/25/16 11/26/16 11/26/16 17:23 00:09 05:13 WBC RBC 2.94 L Hgb 8.4 L Hct 24.6 L MCV MCH MCHC RDW 16.4 H Plt Count Lymph % (Auto) [place] % (Auto) 12.3 H Lymph # [place] # 1.1 H Baso # Seg Neutrophils % Seg Neuts % (Manual) Lymphocytes % (Manual) Monocytes % (Manual) Eosinophils % (Manual) Basophils % (Manual) Nucleated RBC % Seg Neutrophils # Seg Neutrophils # Man Lymphocytes # (Manual) Monocytes # (Manual) Eosinophils # (Manual) Basophils # (Manual) PT INR Fibrinogen dRVVT Confirm Interp Factor V Activity POC ABG pH POC ABG pCO2 POC ABG pO2 ABG pO2 ABG HCO3 ABG Base Excess ABG Hemoglobin Oxyhemoglobin Sodium Potassium Chloride Carbon Dioxide BUN Creatinine Glucose POC Glucose 146 H 112 H Lactic Acid Calcium Ionized Calcium Phosphorus Magnesium Direct Bilirubin AST ALT Alkaline Phosphatase Lactate Dehydrogenase Troponin T C-Reactive Protein Total Protein Albumin Prealbumin Triglycerides Cholesterol LDL Cholesterol Direct HDL Cholesterol 25-OH Vitamin D Total PTH Intact Urine pH Urine WBC (Auto) Urine Creatinine Urine Total Protein Fluid Total Protein Vancomycin Trough Rheumatoid Factor Complement C4 Miscellaneous Test Crossmatch 11/26/16 11/26/16 11/26/16 05:13 05:28 11:53 WBC RBC Hgb Hct MCV MCH MCHC RDW Plt Count Lymph % (Auto) [place] % (Auto) Lymph # [place] # Baso # Seg Neutrophils % Seg Neuts % (Manual) Lymphocytes % (Manual) Monocytes % (Manual) Eosinophils % (Manual) Basophils % (Manual) Nucleated RBC % Seg Neutrophils # Seg Neutrophils # Man Lymphocytes # (Manual) Monocytes # (Manual) Eosinophils # (Manual) Basophils # (Manual) PT INR Fibrinogen dRVVT Confirm Interp Factor V Activity POC ABG pH POC ABG pCO2 POC ABG pO2 ABG pO2 ABG HCO3 ABG Base Excess ABG Hemoglobin Oxyhemoglobin Sodium Potassium Chloride 97.8 L Carbon Dioxide BUN 37 H Creatinine 2.0 H Glucose 109 H POC Glucose 117 H 111 H Lactic Acid Calcium 7.9 L Ionized Calcium Phosphorus 1.80 L D Magnesium Direct Bilirubin AST ALT Alkaline Phosphatase Lactate Dehydrogenase Troponin T C-Reactive Protein Total Protein Albumin Prealbumin Triglycerides Cholesterol LDL Cholesterol Direct HDL Cholesterol 25-OH Vitamin D Total PTH Intact Urine pH Urine WBC (Auto) Urine Creatinine Urine Total Protein Fluid Total Protein Vancomycin Trough Rheumatoid Factor Complement C4 Miscellaneous Test Crossmatch 11/26/16 11/27/16 11/27/16 17:14 04:50 06:02 WBC RBC Hgb Hct MCV MCH MCHC RDW Plt Count Lymph % (Auto) [place] % (Auto) Lymph # [place] # Baso # Seg Neutrophils % Seg Neuts % (Manual) Lymphocytes % (Manual) Monocytes % (Manual) Eosinophils % (Manual) Basophils % (Manual) Nucleated RBC % Seg Neutrophils # Seg Neutrophils # Man Lymphocytes # (Manual) Monocytes # (Manual) Eosinophils # (Manual) Basophils # (Manual) PT INR Fibrinogen dRVVT Confirm Interp Factor V Activity POC ABG pH POC ABG pCO2 POC ABG pO2 ABG pO2 75.2 L ABG HCO3 26.4 H ABG Base Excess ABG Hemoglobin 7.6 L Oxyhemoglobin 94.8 L Sodium Potassium Chloride Carbon Dioxide BUN 49 H Creatinine 2.3 H Glucose POC Glucose 115 H Lactic Acid Calcium Ionized Calcium Phosphorus 1.50 L Magnesium Direct Bilirubin AST ALT Alkaline Phosphatase Lactate Dehydrogenase Troponin T C-Reactive Protein Total Protein Albumin Prealbumin Triglycerides Cholesterol LDL Cholesterol Direct HDL Cholesterol 25-OH Vitamin D Total PTH Intact Urine pH Urine WBC (Auto) Urine Creatinine Urine Total Protein Fluid Total Protein Vancomycin Trough Rheumatoid Factor Complement C4 Miscellaneous Test Crossmatch 11/27/16 11/27/16 11/27/16 06:02 11:25 17:25 WBC 11.6 H RBC 2.75 L Hgb 7.6 L Hct 23.4 L MCV MCH MCHC RDW 16.5 H Plt Count Lymph % (Auto) [place] % (Auto) Lymph # [place] # Baso # Seg Neutrophils % Seg Neuts % (Manual) Lymphocytes % (Manual) Monocytes % (Manual) Eosinophils % (Manual) Basophils % (Manual) Nucleated RBC % Seg Neutrophils # Seg Neutrophils # Man Lymphocytes # (Manual) Monocytes # (Manual) Eosinophils # (Manual) Basophils # (Manual) PT INR Fibrinogen dRVVT Confirm Interp Factor V Activity POC ABG pH POC ABG pCO2 POC ABG pO2 ABG pO2 ABG HCO3 ABG Base Excess ABG Hemoglobin Oxyhemoglobin Sodium Potassium Chloride Carbon Dioxide BUN Creatinine Glucose POC Glucose 114 H 126 H Lactic Acid Calcium Ionized Calcium Phosphorus Magnesium Direct Bilirubin AST ALT Alkaline Phosphatase Lactate Dehydrogenase Troponin T C-Reactive Protein Total Protein Albumin Prealbumin Triglycerides Cholesterol LDL Cholesterol Direct HDL Cholesterol 25-OH Vitamin D Total PTH Intact Urine pH Urine WBC (Auto) Urine Creatinine Urine Total Protein Fluid Total Protein Vancomycin Trough Rheumatoid Factor Complement C4 Miscellaneous Test Crossmatch 11/28/16 11/28/16 11/28/16 04:45 05:33 05:44 WBC RBC Hgb Hct MCV MCH MCHC RDW Plt Count Lymph % (Auto) [place] % (Auto) Lymph # [place] # Baso # Seg Neutrophils % Seg Neuts % (Manual) Lymphocytes % (Manual) Monocytes % (Manual) Eosinophils % (Manual) Basophils % (Manual) Nucleated RBC % Seg Neutrophils # Seg Neutrophils # Man Lymphocytes # (Manual) Monocytes # (Manual) Eosinophils # (Manual) Basophils # (Manual) PT INR Fibrinogen dRVVT Confirm Interp Factor V Activity POC ABG pH POC ABG pCO2 POC ABG pO2 ABG pO2 99.3 H ABG HCO3 ABG Base Excess ABG Hemoglobin 8.3 L Oxyhemoglobin Sodium Potassium Chloride Carbon Dioxide BUN 63 H Creatinine 2.4 H Glucose 102 H POC Glucose 108 H Lactic Acid Calcium Ionized Calcium Phosphorus 1.80 L Magnesium Direct Bilirubin AST ALT Alkaline Phosphatase Lactate Dehydrogenase Troponin T C-Reactive Protein Total Protein Albumin Prealbumin Triglycerides Cholesterol LDL Cholesterol Direct HDL Cholesterol 25-OH Vitamin D Total PTH Intact Urine pH Urine WBC (Auto) Urine Creatinine Urine Total Protein Fluid Total Protein Vancomycin Trough Rheumatoid Factor Complement C4 Miscellaneous Test Crossmatch 11/28/16 11/28/16 11/28/16 12:31 16:09 23:46 WBC RBC Hgb Hct MCV MCH MCHC RDW Plt Count Lymph % (Auto) [place] % (Auto) Lymph # [place] # Baso # Seg Neutrophils % Seg Neuts % (Manual) Lymphocytes % (Manual) Monocytes % (Manual) Eosinophils % (Manual) Basophils % (Manual) Nucleated RBC % Seg Neutrophils # Seg Neutrophils # Man Lymphocytes # (Manual) Monocytes # (Manual) Eosinophils # (Manual) Basophils # (Manual) PT INR Fibrinogen dRVVT Confirm Interp Factor V Activity POC ABG pH POC ABG pCO2 POC ABG pO2 ABG pO2 ABG HCO3 ABG Base Excess ABG Hemoglobin Oxyhemoglobin Sodium Potassium Chloride Carbon Dioxide BUN Creatinine Glucose POC Glucose 126 H 111 H 119 H Lactic Acid Calcium Ionized Calcium Phosphorus Magnesium Direct Bilirubin AST ALT Alkaline Phosphatase Lactate Dehydrogenase Troponin T C-Reactive Protein Total Protein Albumin Prealbumin Triglycerides Cholesterol LDL Cholesterol Direct HDL Cholesterol 25-OH Vitamin D Total PTH Intact Urine pH Urine WBC (Auto) Urine Creatinine Urine Total Protein Fluid Total Protein Vancomycin Trough Rheumatoid Factor Complement C4 Miscellaneous Test Crossmatch 11/29/16 11/29/16 11/29/16 03:33 04:52 05:10 WBC RBC Hgb Hct MCV MCH MCHC RDW Plt Count Lymph % (Auto) [place] % (Auto) Lymph # [place] # Baso # Seg Neutrophils % Seg Neuts % (Manual) Lymphocytes % (Manual) Monocytes % (Manual) Eosinophils % (Manual) Basophils % (Manual) Nucleated RBC % Seg Neutrophils # Seg Neutrophils # Man Lymphocytes # (Manual) Monocytes # (Manual) Eosinophils # (Manual) Basophils # (Manual) PT INR Fibrinogen dRVVT Confirm Interp Factor V Activity POC ABG pH POC ABG pCO2 POC ABG pO2 ABG pO2 ABG HCO3 ABG Base Excess ABG Hemoglobin 7.0 L Oxyhemoglobin 94.9 L Sodium Potassium Chloride Carbon Dioxide BUN 73 H Creatinine 2.7 H Glucose POC Glucose 108 H Lactic Acid Calcium Ionized Calcium Phosphorus Magnesium Direct Bilirubin AST ALT Alkaline Phosphatase Lactate Dehydrogenase Troponin T C-Reactive Protein Total Protein Albumin Prealbumin Triglycerides Cholesterol LDL Cholesterol Direct HDL Cholesterol 25-OH Vitamin D Total PTH Intact Urine pH Urine WBC (Auto) Urine Creatinine Urine Total Protein Fluid Total Protein Vancomycin Trough Rheumatoid Factor Complement C4 Miscellaneous Test Crossmatch 11/29/16 11/29/16 11/29/16 12:16 18:05 23:46 WBC RBC Hgb Hct MCV MCH MCHC RDW Plt Count Lymph % (Auto) [place] % (Auto) Lymph # [place] # Baso # Seg Neutrophils % Seg Neuts % (Manual) Lymphocytes % (Manual) Monocytes % (Manual) Eosinophils % (Manual) Basophils % (Manual) Nucleated RBC % Seg Neutrophils # Seg Neutrophils # Man Lymphocytes # (Manual) Monocytes # (Manual) Eosinophils # (Manual) Basophils # (Manual) PT INR Fibrinogen dRVVT Confirm Interp Factor V Activity POC ABG pH POC ABG pCO2 POC ABG pO2 ABG pO2 ABG HCO3 ABG Base Excess ABG Hemoglobin Oxyhemoglobin Sodium Potassium Chloride Carbon Dioxide BUN Creatinine Glucose POC Glucose 133 H 146 H 141 H Lactic Acid Calcium Ionized Calcium Phosphorus Magnesium Direct Bilirubin AST ALT Alkaline Phosphatase Lactate Dehydrogenase Troponin T C-Reactive Protein Total Protein Albumin Prealbumin Triglycerides Cholesterol LDL Cholesterol Direct HDL Cholesterol 25-OH Vitamin D Total PTH Intact Urine pH Urine WBC (Auto) Urine Creatinine Urine Total Protein Fluid Total Protein Vancomycin Trough Rheumatoid Factor Complement C4 Miscellaneous Test Crossmatch 11/30/16 11/30/16 11/30/16 04:17 04:17 04:32 WBC 12.0 H RBC 2.80 L Hgb 7.8 L Hct 23.6 L MCV MCH MCHC RDW 16.6 H Plt Count Lymph % (Auto) [place] % (Auto) 11.3 H Lymph # [place] # 1.4 H Baso # Seg Neutrophils % Seg Neuts % (Manual) Lymphocytes % (Manual) Monocytes % (Manual) Eosinophils % (Manual) Basophils % (Manual) Nucleated RBC % Seg Neutrophils # 8.2 H Seg Neutrophils # Man Lymphocytes # (Manual) Monocytes # (Manual) Eosinophils # (Manual) Basophils # (Manual) PT INR Fibrinogen dRVVT Confirm Interp Factor V Activity POC ABG pH POC ABG pCO2 POC ABG pO2 ABG pO2 ABG HCO3 ABG Base Excess ABG Hemoglobin Oxyhemoglobin Sodium 169 H* D Potassium 5.1 H Chloride 121.5 H Carbon Dioxide BUN 34 H Creatinine 1.3 H D Glucose 133 H POC Glucose 131 H Lactic Acid Calcium 10.3 H Ionized Calcium Phosphorus Magnesium Direct Bilirubin AST ALT Alkaline Phosphatase Lactate Dehydrogenase Troponin T C-Reactive Protein Total Protein Albumin Prealbumin Triglycerides Cholesterol LDL Cholesterol Direct HDL Cholesterol 25-OH Vitamin D Total PTH Intact Urine pH Urine WBC (Auto) Urine Creatinine Urine Total Protein Fluid Total Protein Vancomycin Trough Rheumatoid Factor Complement C4 Miscellaneous Test Crossmatch 11/30/16 11/30/16 11/30/16 05:45 11:10 17:26 WBC RBC Hgb Hct MCV MCH MCHC RDW Plt Count Lymph % (Auto) [place] % (Auto) Lymph # [place] # Baso # Seg Neutrophils % Seg Neuts % (Manual) Lymphocytes % (Manual) Monocytes % (Manual) Eosinophils % (Manual) Basophils % (Manual) Nucleated RBC % Seg Neutrophils # Seg Neutrophils # Man Lymphocytes # (Manual) Monocytes # (Manual) Eosinophils # (Manual) Basophils # (Manual) PT INR Fibrinogen dRVVT Confirm Interp Factor V Activity POC ABG pH POC ABG pCO2 POC ABG pO2 ABG pO2 ABG HCO3 ABG Base Excess ABG Hemoglobin Oxyhemoglobin Sodium Potassium Chloride Carbon Dioxide BUN 45 H Creatinine 1.6 H Glucose 131 H POC Glucose 146 H 134 H Lactic Acid Calcium Ionized Calcium Phosphorus Magnesium Direct Bilirubin AST ALT Alkaline Phosphatase Lactate Dehydrogenase Troponin T C-Reactive Protein Total Protein Albumin Prealbumin Triglycerides Cholesterol LDL Cholesterol Direct HDL Cholesterol 25-OH Vitamin D Total PTH Intact Urine pH Urine WBC (Auto) Urine Creatinine Urine Total Protein Fluid Total Protein Vancomycin Trough Rheumatoid Factor Complement C4 Miscellaneous Test Crossmatch 11/30/16 12/01/16 12/01/16 23:35 00:06 03:35 WBC RBC Hgb Hct MCV MCH MCHC RDW Plt Count Lymph % (Auto) [place] % (Auto) Lymph # [place] # Baso # Seg Neutrophils % Seg Neuts % (Manual) Lymphocytes % (Manual) Monocytes % (Manual) Eosinophils % (Manual) Basophils % (Manual) Nucleated RBC % Seg Neutrophils # Seg Neutrophils # Man Lymphocytes # (Manual) Monocytes # (Manual) Eosinophils # (Manual) Basophils # (Manual) PT INR Fibrinogen dRVVT Confirm Interp Factor V Activity POC ABG pH POC ABG pCO2 POC ABG pO2 ABG pO2 ABG HCO3 ABG Base Excess ABG Hemoglobin 6.9 L Oxyhemoglobin Sodium Potassium Chloride Carbon Dioxide BUN 58 H Creatinine 1.8 H Glucose 146 H POC Glucose 151 H Lactic Acid Calcium Ionized Calcium Phosphorus Magnesium Direct Bilirubin AST ALT Alkaline Phosphatase Lactate Dehydrogenase Troponin T C-Reactive Protein Total Protein Albumin Prealbumin Triglycerides Cholesterol LDL Cholesterol Direct HDL Cholesterol 25-OH Vitamin D Total PTH Intact Urine pH Urine WBC (Auto) Urine Creatinine Urine Total Protein Fluid Total Protein Vancomycin Trough Rheumatoid Factor Complement C4 Miscellaneous Test Crossmatch 12/01/16 12/01/16 12/01/16 03:35 05:47 11:52 WBC 12.3 H RBC 2.82 L Hgb 7.8 L Hct 23.7 L MCV MCH MCHC RDW 16.7 H Plt Count Lymph % (Auto) [place] % (Auto) 9.8 H Lymph # [place] # 1.2 H Baso # Seg Neutrophils % Seg Neuts % (Manual) Lymphocytes % (Manual) Monocytes % (Manual) Eosinophils % (Manual) Basophils % (Manual) Nucleated RBC % Seg Neutrophils # 8.4 H Seg Neutrophils # Man Lymphocytes # (Manual) Monocytes # (Manual) Eosinophils # (Manual) Basophils # (Manual) PT INR Fibrinogen dRVVT Confirm Interp Factor V Activity POC ABG pH POC ABG pCO2 POC ABG pO2 ABG pO2 ABG HCO3 ABG Base Excess ABG Hemoglobin Oxyhemoglobin Sodium Potassium Chloride Carbon Dioxide BUN Creatinine Glucose POC Glucose 152 H 152 H Lactic Acid Calcium Ionized Calcium Phosphorus Magnesium Direct Bilirubin AST ALT Alkaline Phosphatase Lactate Dehydrogenase Troponin T C-Reactive Protein Total Protein Albumin Prealbumin Triglycerides Cholesterol LDL Cholesterol Direct HDL Cholesterol 25-OH Vitamin D Total PTH Intact Urine pH Urine WBC (Auto) Urine Creatinine Urine Total Protein Fluid Total Protein Vancomycin Trough Rheumatoid Factor Complement C4 Miscellaneous Test Crossmatch 12/01/16 12/01/16 12/02/16 17:40 23:41 05:00 WBC RBC Hgb Hct MCV MCH MCHC RDW Plt Count Lymph % (Auto) [place] % (Auto) Lymph # [place] # Baso # Seg Neutrophils % Seg Neuts % (Manual) Lymphocytes % (Manual) Monocytes % (Manual) Eosinophils % (Manual) Basophils % (Manual) Nucleated RBC % Seg Neutrophils # Seg Neutrophils # Man Lymphocytes # (Manual) Monocytes # (Manual) Eosinophils # (Manual) Basophils # (Manual) PT INR Fibrinogen dRVVT Confirm Interp Factor V Activity POC ABG pH POC ABG pCO2 POC ABG pO2 ABG pO2 ABG HCO3 ABG Base Excess ABG Hemoglobin Oxyhemoglobin Sodium Potassium Chloride Carbon Dioxide BUN 45 H Creatinine Glucose 115 H POC Glucose 140 H 144 H Lactic Acid Calcium Ionized Calcium Phosphorus Magnesium Direct Bilirubin AST ALT Alkaline Phosphatase Lactate Dehydrogenase Troponin T C-Reactive Protein Total Protein Albumin Prealbumin Triglycerides Cholesterol LDL Cholesterol Direct HDL Cholesterol 25-OH Vitamin D Total PTH Intact Urine pH Urine WBC (Auto) Urine Creatinine Urine Total Protein Fluid Total Protein Vancomycin Trough Rheumatoid Factor Complement C4 Miscellaneous Test Crossmatch 12/02/16 12/02/16 12/02/16 05:31 11:20 17:38 WBC RBC Hgb Hct MCV MCH MCHC RDW Plt Count Lymph % (Auto) [place] % (Auto) Lymph # [place] # Baso # Seg Neutrophils % Seg Neuts % (Manual) Lymphocytes % (Manual) Monocytes % (Manual) Eosinophils % (Manual) Basophils % (Manual) Nucleated RBC % Seg Neutrophils # Seg Neutrophils # Man Lymphocytes # (Manual) Monocytes # (Manual) Eosinophils # (Manual) Basophils # (Manual) PT INR Fibrinogen dRVVT Confirm Interp Factor V Activity POC ABG pH POC ABG pCO2 POC ABG pO2 ABG pO2 ABG HCO3 ABG Base Excess ABG Hemoglobin Oxyhemoglobin Sodium Potassium Chloride Carbon Dioxide BUN Creatinine Glucose POC Glucose 136 H 177 H 139 H Lactic Acid Calcium Ionized Calcium Phosphorus Magnesium Direct Bilirubin AST ALT Alkaline Phosphatase Lactate Dehydrogenase Troponin T C-Reactive Protein Total Protein Albumin Prealbumin Triglycerides Cholesterol LDL Cholesterol Direct HDL Cholesterol 25-OH Vitamin D Total PTH Intact Urine pH Urine WBC (Auto) Urine Creatinine Urine Total Protein Fluid Total Protein Vancomycin Trough Rheumatoid Factor Complement C4 Miscellaneous Test Crossmatch 12/02/16 12/03/16 12/03/16 23:43 04:00 04:00 WBC 20.4 H RBC 2.74 L Hgb 7.4 L Hct 23.6 L MCV MCH 27 L MCHC RDW 17.1 H Plt Count Lymph % (Auto) [place] % (Auto) Lymph # [place] # Baso # Seg Neutrophils % Seg Neuts % (Manual) 31.0 L Lymphocytes % (Manual) Monocytes % (Manual) Eosinophils % (Manual) Basophils % (Manual) Nucleated RBC % Seg Neutrophils # Seg Neutrophils # Man Lymphocytes # (Manual) Monocytes # (Manual) Eosinophils # (Manual) Basophils # (Manual) PT INR Fibrinogen dRVVT Confirm Interp Factor V Activity POC ABG pH POC ABG pCO2 POC ABG pO2 ABG pO2 ABG HCO3 ABG Base Excess ABG Hemoglobin Oxyhemoglobin Sodium Potassium Chloride Carbon Dioxide BUN 61 H Creatinine 1.6 H Glucose 119 H POC Glucose 158 H Lactic Acid Calcium Ionized Calcium Phosphorus Magnesium Direct Bilirubin AST ALT Alkaline Phosphatase Lactate Dehydrogenase Troponin T C-Reactive Protein Total Protein Albumin Prealbumin Triglycerides Cholesterol LDL Cholesterol Direct HDL Cholesterol 25-OH Vitamin D Total PTH Intact Urine pH Urine WBC (Auto) Urine Creatinine Urine Total Protein Fluid Total Protein Vancomycin Trough Rheumatoid Factor Complement C4 Miscellaneous Test Crossmatch 12/03/16 12/03/16 12/03/16 05:02 12:11 18:16 WBC RBC Hgb Hct MCV MCH MCHC RDW Plt Count Lymph % (Auto) [place] % (Auto) Lymph # [place] # Baso # Seg Neutrophils % Seg Neuts % (Manual) Lymphocytes % (Manual) Monocytes % (Manual) Eosinophils % (Manual) Basophils % (Manual) Nucleated RBC % Seg Neutrophils # Seg Neutrophils # Man Lymphocytes # (Manual) Monocytes # (Manual) Eosinophils # (Manual) Basophils # (Manual) PT INR Fibrinogen dRVVT Confirm Interp Factor V Activity POC ABG pH POC ABG pCO2 POC ABG pO2 ABG pO2 ABG HCO3 ABG Base Excess ABG Hemoglobin Oxyhemoglobin Sodium Potassium Chloride Carbon Dioxide BUN Creatinine Glucose POC Glucose 146 H 157 H 124 H Lactic Acid Calcium Ionized Calcium Phosphorus Magnesium Direct Bilirubin AST ALT Alkaline Phosphatase Lactate Dehydrogenase Troponin T C-Reactive Protein Total Protein Albumin Prealbumin Triglycerides Cholesterol LDL Cholesterol Direct HDL Cholesterol 25-OH Vitamin D Total PTH Intact Urine pH Urine WBC (Auto) Urine Creatinine Urine Total Protein Fluid Total Protein Vancomycin Trough Rheumatoid Factor Complement C4 Miscellaneous Test Crossmatch 12/03/16 12/04/16 12/04/16 23:41 04:00 04:45 WBC RBC Hgb Hct MCV MCH MCHC RDW Plt Count Lymph % (Auto) [place] % (Auto) Lymph # [place] # Baso # Seg Neutrophils % Seg Neuts % (Manual) Lymphocytes % (Manual) Monocytes % (Manual) Eosinophils % (Manual) Basophils % (Manual) Nucleated RBC % Seg Neutrophils # Seg Neutrophils # Man Lymphocytes # (Manual) Monocytes # (Manual) Eosinophils # (Manual) Basophils # (Manual) PT INR Fibrinogen dRVVT Confirm Interp Factor V Activity POC ABG pH POC ABG pCO2 POC ABG pO2 ABG pO2 ABG HCO3 ABG Base Excess ABG Hemoglobin Oxyhemoglobin Sodium Potassium Chloride Carbon Dioxide BUN 76 H Creatinine 1.6 H Glucose POC Glucose 130 H 136 H Lactic Acid Calcium Ionized Calcium Phosphorus Magnesium Direct Bilirubin AST ALT Alkaline Phosphatase 155 H Lactate Dehydrogenase Troponin T C-Reactive Protein Total Protein 5.5 L Albumin 1.5 L Prealbumin Triglycerides Cholesterol LDL Cholesterol Direct HDL Cholesterol 25-OH Vitamin D Total PTH Intact Urine pH Urine WBC (Auto) Urine Creatinine Urine Total Protein Fluid Total Protein Vancomycin Trough Rheumatoid Factor Complement C4 Miscellaneous Test Crossmatch 12/04/16 12/04/16 12/05/16 12:08 17:23 00:10 WBC RBC Hgb Hct MCV MCH MCHC RDW Plt Count Lymph % (Auto) [place] % (Auto) Lymph # [place] # Baso # Seg Neutrophils % Seg Neuts % (Manual) Lymphocytes % (Manual) Monocytes % (Manual) Eosinophils % (Manual) Basophils % (Manual) Nucleated RBC % Seg Neutrophils # Seg Neutrophils # Man Lymphocytes # (Manual) Monocytes # (Manual) Eosinophils # (Manual) Basophils # (Manual) PT INR Fibrinogen dRVVT Confirm Interp Factor V Activity POC ABG pH POC ABG pCO2 POC ABG pO2 ABG pO2 ABG HCO3 ABG Base Excess ABG Hemoglobin Oxyhemoglobin Sodium Potassium Chloride Carbon Dioxide BUN Creatinine Glucose POC Glucose 114 H 129 H 124 H Lactic Acid Calcium Ionized Calcium Phosphorus Magnesium Direct Bilirubin AST ALT Alkaline Phosphatase Lactate Dehydrogenase Troponin T C-Reactive Protein Total Protein Albumin Prealbumin Triglycerides Cholesterol LDL Cholesterol Direct HDL Cholesterol 25-OH Vitamin D Total PTH Intact Urine pH Urine WBC (Auto) Urine Creatinine Urine Total Protein Fluid Total Protein Vancomycin Trough Rheumatoid Factor Complement C4 Miscellaneous Test Crossmatch 12/05/16 12/05/16 12/05/16 05:00 05:00 05:18 WBC RBC Hgb Hct MCV MCH MCHC RDW Plt Count Lymph % (Auto) [place] % (Auto) Lymph # [place] # Baso # Seg Neutrophils % Seg Neuts % (Manual) Lymphocytes % (Manual) Monocytes % (Manual) Eosinophils % (Manual) Basophils % (Manual) Nucleated RBC % Seg Neutrophils # Seg Neutrophils # Man Lymphocytes # (Manual) Monocytes # (Manual) Eosinophils # (Manual) Basophils # (Manual) PT INR Fibrinogen dRVVT Confirm Interp Factor V Activity POC ABG pH POC ABG pCO2 POC ABG pO2 ABG pO2 ABG HCO3 ABG Base Excess ABG Hemoglobin Oxyhemoglobin Sodium Potassium Chloride Carbon Dioxide 21 L BUN 85 H Creatinine 1.9 H Glucose 131 H POC Glucose 154 H Lactic Acid Calcium Ionized Calcium Phosphorus Magnesium Direct Bilirubin AST ALT Alkaline Phosphatase Lactate Dehydrogenase Troponin T C-Reactive Protein 19.30 H Total Protein Albumin Prealbumin Triglycerides Cholesterol LDL Cholesterol Direct HDL Cholesterol 25-OH Vitamin D Total PTH Intact Urine pH Urine WBC (Auto) Urine Creatinine Urine Total Protein Fluid Total Protein Vancomycin Trough Rheumatoid Factor Complement C4 Miscellaneous Test Crossmatch 12/05/16 12/05/16 12/05/16 11:43 17:46 23:25 WBC RBC Hgb Hct MCV MCH MCHC RDW Plt Count Lymph % (Auto) [place] % (Auto) Lymph # [place] # Baso # Seg Neutrophils % Seg Neuts % (Manual) Lymphocytes % (Manual) Monocytes % (Manual) Eosinophils % (Manual) Basophils % (Manual) Nucleated RBC % Seg Neutrophils # Seg Neutrophils # Man Lymphocytes # (Manual) Monocytes # (Manual) Eosinophils # (Manual) Basophils # (Manual) PT INR Fibrinogen dRVVT Confirm Interp Factor V Activity POC ABG pH POC ABG pCO2 POC ABG pO2 ABG pO2 ABG HCO3 ABG Base Excess ABG Hemoglobin Oxyhemoglobin Sodium Potassium Chloride Carbon Dioxide BUN Creatinine Glucose POC Glucose 117 H 113 H 111 H Lactic Acid Calcium Ionized Calcium Phosphorus Magnesium Direct Bilirubin AST ALT Alkaline Phosphatase Lactate Dehydrogenase Troponin T C-Reactive Protein Total Protein Albumin Prealbumin Triglycerides Cholesterol LDL Cholesterol Direct HDL Cholesterol 25-OH Vitamin D Total PTH Intact Urine pH Urine WBC (Auto) Urine Creatinine Urine Total Protein Fluid Total Protein Vancomycin Trough Rheumatoid Factor Complement C4 Miscellaneous Test Crossmatch 12/05/16 12/06/16 12/06/16 Unknown 04:58 06:00 WBC RBC Hgb Hct MCV MCH MCHC RDW Plt Count Lymph % (Auto) [place] % (Auto) Lymph # [place] # Baso # Seg Neutrophils % Seg Neuts % (Manual) Lymphocytes % (Manual) Monocytes % (Manual) Eosinophils % (Manual) Basophils % (Manual) Nucleated RBC % Seg Neutrophils # Seg Neutrophils # Man Lymphocytes # (Manual) Monocytes # (Manual) Eosinophils # (Manual) Basophils # (Manual) PT INR Fibrinogen dRVVT Confirm Interp Factor V Activity POC ABG pH POC ABG pCO2 POC ABG pO2 ABG pO2 75.2 L ABG HCO3 ABG Base Excess -3.4 L ABG Hemoglobin 7.4 L Oxyhemoglobin 94.5 L Sodium Potassium Chloride Carbon Dioxide 20 L BUN 99 H Creatinine 2.1 H Glucose 126 H POC Glucose 145 H Lactic Acid Calcium Ionized Calcium Phosphorus 4.80 H Magnesium Direct Bilirubin AST ALT Alkaline Phosphatase Lactate Dehydrogenase Troponin T C-Reactive Protein Total Protein Albumin Prealbumin Triglycerides Cholesterol LDL Cholesterol Direct HDL Cholesterol 25-OH Vitamin D Total PTH Intact Urine pH Urine WBC (Auto) Urine Creatinine Urine Total Protein Fluid Total Protein Vancomycin Trough Rheumatoid Factor Complement C4 Miscellaneous Test Crossmatch 12/06/16 12/06/16 12/06/16 06:46 11:54 17:55 WBC RBC Hgb 8.3 L Hct 26.4 L MCV MCH MCHC RDW Plt Count Lymph % (Auto) [place] % (Auto) Lymph # [place] # Baso # Seg Neutrophils % Seg Neuts % (Manual) Lymphocytes % (Manual) Monocytes % (Manual) Eosinophils % (Manual) Basophils % (Manual) Nucleated RBC % Seg Neutrophils # Seg Neutrophils # Man Lymphocytes # (Manual) Monocytes # (Manual) Eosinophils # (Manual) Basophils # (Manual) PT INR Fibrinogen dRVVT Confirm Interp Factor V Activity POC ABG pH POC ABG pCO2 POC ABG pO2 ABG pO2 ABG HCO3 ABG Base Excess ABG Hemoglobin Oxyhemoglobin Sodium Potassium Chloride Carbon Dioxide BUN Creatinine Glucose POC Glucose 126 H 157 H Lactic Acid Calcium Ionized Calcium Phosphorus Magnesium Direct Bilirubin AST ALT Alkaline Phosphatase Lactate Dehydrogenase Troponin T C-Reactive Protein Total Protein Albumin Prealbumin Triglycerides Cholesterol LDL Cholesterol Direct HDL Cholesterol 25-OH Vitamin D Total PTH Intact Urine pH Urine WBC (Auto) Urine Creatinine Urine Total Protein Fluid Total Protein Vancomycin Trough Rheumatoid Factor Complement C4 Miscellaneous Test Crossmatch 12/06/16 12/07/16 12/07/16 23:59 05:34 06:30 WBC RBC Hgb Hct MCV MCH MCHC RDW Plt Count Lymph % (Auto) [place] % (Auto) Lymph # [place] # Baso # Seg Neutrophils % Seg Neuts % (Manual) Lymphocytes % (Manual) Monocytes % (Manual) Eosinophils % (Manual) Basophils % (Manual) Nucleated RBC % Seg Neutrophils # Seg Neutrophils # Man Lymphocytes # (Manual) Monocytes # (Manual) Eosinophils # (Manual) Basophils # (Manual) PT INR Fibrinogen dRVVT Confirm Interp Factor V Activity POC ABG pH POC ABG pCO2 POC ABG pO2 ABG pO2 ABG HCO3 ABG Base Excess ABG Hemoglobin Oxyhemoglobin Sodium Potassium Chloride Carbon Dioxide BUN 67 H Creatinine 1.4 H Glucose 126 H POC Glucose 129 H 129 H Lactic Acid Calcium Ionized Calcium Phosphorus Magnesium Direct Bilirubin AST ALT Alkaline Phosphatase Lactate Dehydrogenase Troponin T C-Reactive Protein Total Protein Albumin Prealbumin Triglycerides Cholesterol LDL Cholesterol Direct HDL Cholesterol 25-OH Vitamin D Total PTH Intact Urine pH Urine WBC (Auto) Urine Creatinine Urine Total Protein Fluid Total Protein Vancomycin Trough Rheumatoid Factor Complement C4 Miscellaneous Test Crossmatch 12/07/16 12/07/16 12/07/16 06:30 08:00 09:45 WBC 18.8 H RBC 2.52 L Hgb 6.9 L 6.8 L Hct 21.2 L 21.1 L MCV MCH 27 L MCHC RDW 18.0 H Plt Count Lymph % (Auto) [place] % (Auto) 9.9 H Lymph # [place] # 1.9 H Baso # Seg Neutrophils % 71.8 H Seg Neuts % (Manual) Lymphocytes % (Manual) Monocytes % (Manual) Eosinophils % (Manual) Basophils % (Manual) Nucleated RBC % Seg Neutrophils # 13.5 H Seg Neutrophils # Man Lymphocytes # (Manual) Monocytes # (Manual) Eosinophils # (Manual) Basophils # (Manual) PT INR Fibrinogen dRVVT Confirm Interp Factor V Activity POC ABG pH POC ABG pCO2 POC ABG pO2 ABG pO2 ABG HCO3 ABG Base Excess ABG Hemoglobin Oxyhemoglobin Sodium Potassium Chloride Carbon Dioxide BUN Creatinine Glucose POC Glucose Lactic Acid Calcium Ionized Calcium Phosphorus Magnesium Direct Bilirubin AST ALT Alkaline Phosphatase Lactate Dehydrogenase Troponin T C-Reactive Protein Total Protein Albumin Prealbumin Triglycerides Cholesterol LDL Cholesterol Direct HDL Cholesterol 25-OH Vitamin D Total PTH Intact Urine pH Urine WBC (Auto) Urine Creatinine Urine Total Protein Fluid Total Protein Vancomycin Trough Rheumatoid Factor Complement C4 Miscellaneous Test Crossmatch See Detail 12/07/16 12/07/16 12/07/16 11:44 18:19 23:59 WBC RBC Hgb Hct MCV MCH MCHC RDW Plt Count Lymph % (Auto) [place] % (Auto) Lymph # [place] # Baso # Seg Neutrophils % Seg Neuts % (Manual) Lymphocytes % (Manual) Monocytes % (Manual) Eosinophils % (Manual) Basophils % (Manual) Nucleated RBC % Seg Neutrophils # Seg Neutrophils # Man Lymphocytes # (Manual) Monocytes # (Manual) Eosinophils # (Manual) Basophils # (Manual) PT INR Fibrinogen dRVVT Confirm Interp Factor V Activity POC ABG pH POC ABG pCO2 POC ABG pO2 ABG pO2 ABG HCO3 ABG Base Excess ABG Hemoglobin Oxyhemoglobin Sodium Potassium Chloride Carbon Dioxide BUN Creatinine Glucose POC Glucose 137 H 138 H 133 H Lactic Acid Calcium Ionized Calcium Phosphorus Magnesium Direct Bilirubin AST ALT Alkaline Phosphatase Lactate Dehydrogenase Troponin T C-Reactive Protein Total Protein Albumin Prealbumin Triglycerides Cholesterol LDL Cholesterol Direct HDL Cholesterol 25-OH Vitamin D Total PTH Intact Urine pH Urine WBC (Auto) Urine Creatinine Urine Total Protein Fluid Total Protein Vancomycin Trough Rheumatoid Factor Complement C4 Miscellaneous Test Crossmatch 12/08/16 12/08/16 12/08/16 05:25 05:30 05:30 WBC 23.8 H RBC 2.88 L Hgb 8.1 L Hct 24.3 L MCV MCH MCHC RDW 16.7 H Plt Count Lymph % (Auto) [place] % (Auto) Lymph # [place] # Baso # Seg Neutrophils % Seg Neuts % (Manual) 76.0 H Lymphocytes % (Manual) 9.0 L Monocytes % (Manual) 9.0 H Eosinophils % (Manual) Basophils % (Manual) Nucleated RBC % Seg Neutrophils # Seg Neutrophils # Man 18.1 H Lymphocytes # (Manual) Monocytes # (Manual) 2.1 H Eosinophils # (Manual) Basophils # (Manual) PT INR Fibrinogen dRVVT Confirm Interp Factor V Activity POC ABG pH POC ABG pCO2 POC ABG pO2 ABG pO2 ABG HCO3 ABG Base Excess ABG Hemoglobin Oxyhemoglobin Sodium Potassium Chloride Carbon Dioxide 21 L BUN 76 H Creatinine 1.6 H Glucose 133 H POC Glucose 177 H Lactic Acid Calcium Ionized Calcium Phosphorus Magnesium Direct Bilirubin AST ALT Alkaline Phosphatase Lactate Dehydrogenase Troponin T C-Reactive Protein Total Protein Albumin Prealbumin Triglycerides Cholesterol LDL Cholesterol Direct HDL Cholesterol 25-OH Vitamin D Total PTH Intact Urine pH Urine WBC (Auto) Urine Creatinine Urine Total Protein Fluid Total Protein Vancomycin Trough Rheumatoid Factor Complement C4 Miscellaneous Test Crossmatch 12/08/16 12/08/16 12/09/16 11:45 18:00 00:00 WBC RBC Hgb Hct MCV MCH MCHC RDW Plt Count Lymph % (Auto) [place] % (Auto) Lymph # [place] # Baso # Seg Neutrophils % Seg Neuts % (Manual) Lymphocytes % (Manual) Monocytes % (Manual) Eosinophils % (Manual) Basophils % (Manual) Nucleated RBC % Seg Neutrophils # Seg Neutrophils # Man Lymphocytes # (Manual) Monocytes # (Manual) Eosinophils # (Manual) Basophils # (Manual) PT INR Fibrinogen dRVVT Confirm Interp Factor V Activity POC ABG pH POC ABG pCO2 POC ABG pO2 ABG pO2 ABG HCO3 ABG Base Excess ABG Hemoglobin Oxyhemoglobin Sodium Potassium Chloride Carbon Dioxide BUN Creatinine Glucose POC Glucose 163 H 123 H 137 H Lactic Acid Calcium Ionized Calcium Phosphorus Magnesium Direct Bilirubin AST ALT Alkaline Phosphatase Lactate Dehydrogenase Troponin T C-Reactive Protein Total Protein Albumin Prealbumin Triglycerides Cholesterol LDL Cholesterol Direct HDL Cholesterol 25-OH Vitamin D Total PTH Intact Urine pH Urine WBC (Auto) Urine Creatinine Urine Total Protein Fluid Total Protein Vancomycin Trough Rheumatoid Factor Complement C4 Miscellaneous Test Crossmatch 12/09/16 12/09/16 12/09/16 05:34 06:00 06:00 WBC 15.5 H RBC 2.87 L Hgb 8.0 L Hct 24.2 L MCV MCH MCHC RDW 17.2 H Plt Count Lymph % (Auto) [place] % (Auto) 11.6 H Lymph # [place] # 1.8 H Baso # Seg Neutrophils % 70.8 H Seg Neuts % (Manual) Lymphocytes % (Manual) Monocytes % (Manual) Eosinophils % (Manual) Basophils % (Manual) Nucleated RBC % Seg Neutrophils # 11.0 H Seg Neutrophils # Man Lymphocytes # (Manual) Monocytes # (Manual) Eosinophils # (Manual) Basophils # (Manual) PT INR Fibrinogen dRVVT Confirm Interp Factor V Activity POC ABG pH POC ABG pCO2 POC ABG pO2 ABG pO2 ABG HCO3 ABG Base Excess ABG Hemoglobin Oxyhemoglobin Sodium Potassium Chloride Carbon Dioxide BUN 51 H Creatinine Glucose 117 H POC Glucose 136 H Lactic Acid Calcium Ionized Calcium Phosphorus Magnesium Direct Bilirubin AST ALT Alkaline Phosphatase Lactate Dehydrogenase Troponin T C-Reactive Protein Total Protein Albumin Prealbumin Triglycerides Cholesterol LDL Cholesterol Direct HDL Cholesterol 25-OH Vitamin D Total PTH Intact Urine pH Urine WBC (Auto) Urine Creatinine Urine Total Protein Fluid Total Protein Vancomycin Trough Rheumatoid Factor Complement C4 Miscellaneous Test Crossmatch 12/09/16 12/09/16 12/09/16 12:29 17:52 23:10 WBC RBC Hgb Hct MCV MCH MCHC RDW Plt Count Lymph % (Auto) [place] % (Auto) Lymph # [place] # Baso # Seg Neutrophils % Seg Neuts % (Manual) Lymphocytes % (Manual) Monocytes % (Manual) Eosinophils % (Manual) Basophils % (Manual) Nucleated RBC % Seg Neutrophils # Seg Neutrophils # Man Lymphocytes # (Manual) Monocytes # (Manual) Eosinophils # (Manual) Basophils # (Manual) PT INR Fibrinogen dRVVT Confirm Interp Factor V Activity POC ABG pH POC ABG pCO2 POC ABG pO2 ABG pO2 ABG HCO3 ABG Base Excess ABG Hemoglobin Oxyhemoglobin Sodium Potassium Chloride Carbon Dioxide BUN Creatinine Glucose POC Glucose 139 H 140 H 129 H Lactic Acid Calcium Ionized Calcium Phosphorus Magnesium Direct Bilirubin AST ALT Alkaline Phosphatase Lactate Dehydrogenase Troponin T C-Reactive Protein Total Protein Albumin Prealbumin Triglycerides Cholesterol LDL Cholesterol Direct HDL Cholesterol 25-OH Vitamin D Total PTH Intact Urine pH Urine WBC (Auto) Urine Creatinine Urine Total Protein Fluid Total Protein Vancomycin Trough Rheumatoid Factor Complement C4 Miscellaneous Test Crossmatch 12/10/16 12/10/16 12/10/16 05:00 05:00 06:54 WBC 15.7 H RBC 2.87 L Hgb 8.2 L Hct 24.4 L MCV MCH MCHC RDW 17.2 H Plt Count Lymph % (Auto) [place] % (Auto) 8.3 H Lymph # [place] # 1.3 H Baso # Seg Neutrophils % 72.8 H Seg Neuts % (Manual) Lymphocytes % (Manual) Monocytes % (Manual) Eosinophils % (Manual) Basophils % (Manual) Nucleated RBC % Seg Neutrophils # 11.4 H Seg Neutrophils # Man Lymphocytes # (Manual) Monocytes # (Manual) Eosinophils # (Manual) Basophils # (Manual) PT INR Fibrinogen dRVVT Confirm Interp Factor V Activity POC ABG pH POC ABG pCO2 POC ABG pO2 ABG pO2 ABG HCO3 ABG Base Excess ABG Hemoglobin Oxyhemoglobin Sodium Potassium Chloride Carbon Dioxide BUN 64 H Creatinine 1.4 H Glucose 134 H POC Glucose 154 H Lactic Acid Calcium Ionized Calcium Phosphorus Magnesium Direct Bilirubin AST ALT Alkaline Phosphatase Lactate Dehydrogenase Troponin T C-Reactive Protein Total Protein Albumin Prealbumin Triglycerides Cholesterol LDL Cholesterol Direct HDL Cholesterol 25-OH Vitamin D Total PTH Intact Urine pH Urine WBC (Auto) Urine Creatinine Urine Total Protein Fluid Total Protein Vancomycin Trough Rheumatoid Factor Complement C4 Miscellaneous Test Crossmatch 12/10/16 12/10/16 12/10/16 11:58 17:29 23:52 WBC RBC Hgb Hct MCV MCH MCHC RDW Plt Count Lymph % (Auto) [place] % (Auto) Lymph # [place] # Baso # Seg Neutrophils % Seg Neuts % (Manual) Lymphocytes % (Manual) Monocytes % (Manual) Eosinophils % (Manual) Basophils % (Manual) Nucleated RBC % Seg Neutrophils # Seg Neutrophils # Man Lymphocytes # (Manual) Monocytes # (Manual) Eosinophils # (Manual) Basophils # (Manual) PT INR Fibrinogen dRVVT Confirm Interp Factor V Activity POC ABG pH POC ABG pCO2 POC ABG pO2 ABG pO2 ABG HCO3 ABG Base Excess ABG Hemoglobin Oxyhemoglobin Sodium Potassium Chloride Carbon Dioxide BUN Creatinine Glucose POC Glucose 144 H 163 H 125 H Lactic Acid Calcium Ionized Calcium Phosphorus Magnesium Direct Bilirubin AST ALT Alkaline Phosphatase Lactate Dehydrogenase Troponin T C-Reactive Protein Total Protein Albumin Prealbumin Triglycerides Cholesterol LDL Cholesterol Direct HDL Cholesterol 25-OH Vitamin D Total PTH Intact Urine pH Urine WBC (Auto) Urine Creatinine Urine Total Protein Fluid Total Protein Vancomycin Trough Rheumatoid Factor Complement C4 Miscellaneous Test Crossmatch 12/11/16 12/11/16 12/11/16 05:38 06:30 06:30 WBC 14.4 H RBC 2.76 L Hgb 7.7 L Hct 23.4 L MCV MCH MCHC RDW 17.2 H Plt Count Lymph % (Auto) [place] % (Auto) 8.8 H Lymph # [place] # 1.3 H Baso # Seg Neutrophils % 72.5 H Seg Neuts % (Manual) Lymphocytes % (Manual) Monocytes % (Manual) Eosinophils % (Manual) Basophils % (Manual) Nucleated RBC % Seg Neutrophils # 10.5 H Seg Neutrophils # Man Lymphocytes # (Manual) Monocytes # (Manual) Eosinophils # (Manual) Basophils # (Manual) PT INR Fibrinogen dRVVT Confirm Interp Factor V Activity POC ABG pH POC ABG pCO2 POC ABG pO2 ABG pO2 ABG HCO3 ABG Base Excess ABG Hemoglobin Oxyhemoglobin Sodium Potassium Chloride Carbon Dioxide BUN 43 H Creatinine Glucose 124 H POC Glucose 141 H Lactic Acid Calcium 8.3 L Ionized Calcium Phosphorus Magnesium 1.60 L Direct Bilirubin AST ALT Alkaline Phosphatase Lactate Dehydrogenase Troponin T C-Reactive Protein Total Protein Albumin Prealbumin Triglycerides Cholesterol LDL Cholesterol Direct HDL Cholesterol 25-OH Vitamin D Total PTH Intact Urine pH Urine WBC (Auto) Urine Creatinine Urine Total Protein Fluid Total Protein Vancomycin Trough Rheumatoid Factor Complement C4 Miscellaneous Test Crossmatch 12/11/16 12/11/16 12/11/16 11:15 17:59 23:48 WBC RBC Hgb Hct MCV MCH MCHC RDW Plt Count Lymph % (Auto) [place] % (Auto) Lymph # [place] # Baso # Seg Neutrophils % Seg Neuts % (Manual) Lymphocytes % (Manual) Monocytes % (Manual) Eosinophils % (Manual) Basophils % (Manual) Nucleated RBC % Seg Neutrophils # Seg Neutrophils # Man Lymphocytes # (Manual) Monocytes # (Manual) Eosinophils # (Manual) Basophils # (Manual) PT INR Fibrinogen dRVVT Confirm Interp Factor V Activity POC ABG pH POC ABG pCO2 POC ABG pO2 ABG pO2 ABG HCO3 ABG Base Excess ABG Hemoglobin Oxyhemoglobin Sodium Potassium Chloride Carbon Dioxide BUN Creatinine Glucose POC Glucose 188 H 106 H 119 H Lactic Acid Calcium Ionized Calcium Phosphorus Magnesium Direct Bilirubin AST ALT Alkaline Phosphatase Lactate Dehydrogenase Troponin T C-Reactive Protein Total Protein Albumin Prealbumin Triglycerides Cholesterol LDL Cholesterol Direct HDL Cholesterol 25-OH Vitamin D Total PTH Intact Urine pH Urine WBC (Auto) Urine Creatinine Urine Total Protein Fluid Total Protein Vancomycin Trough Rheumatoid Factor Complement C4 Miscellaneous Test Crossmatch 12/12/16 12/12/16 12/12/16 05:00 06:01 12:20 WBC 16.7 H RBC 2.87 L Hgb 8.0 L Hct 24.2 L MCV MCH MCHC RDW 17.6 H Plt Count Lymph % (Auto) [place] % (Auto) Lymph # [place] # 1.2 H Baso # Seg Neutrophils % 75.3 H Seg Neuts % (Manual) Lymphocytes % (Manual) Monocytes % (Manual) Eosinophils % (Manual) Basophils % (Manual) Nucleated RBC % Seg Neutrophils # 12.6 H Seg Neutrophils # Man Lymphocytes # (Manual) Monocytes # (Manual) Eosinophils # (Manual) Basophils # (Manual) PT INR Fibrinogen dRVVT Confirm Interp Factor V Activity POC ABG pH POC ABG pCO2 POC ABG pO2 ABG pO2 ABG HCO3 ABG Base Excess ABG Hemoglobin Oxyhemoglobin Sodium Potassium Chloride Carbon Dioxide BUN Creatinine Glucose POC Glucose 134 H 149 H Lactic Acid Calcium Ionized Calcium Phosphorus Magnesium Direct Bilirubin AST ALT Alkaline Phosphatase Lactate Dehydrogenase Troponin T C-Reactive Protein Total Protein Albumin Prealbumin Triglycerides Cholesterol LDL Cholesterol Direct HDL Cholesterol 25-OH Vitamin D Total PTH Intact Urine pH Urine WBC (Auto) Urine Creatinine Urine Total Protein Fluid Total Protein Vancomycin Trough Rheumatoid Factor Complement C4 Miscellaneous Test Crossmatch 12/12/16 12/12/16 12/12/16 17:38 23:01 Unknown WBC RBC Hgb Hct MCV MCH MCHC RDW Plt Count Lymph % (Auto) [place] % (Auto) Lymph # [place] # Baso # Seg Neutrophils % Seg Neuts % (Manual) Lymphocytes % (Manual) Monocytes % (Manual) Eosinophils % (Manual) Basophils % (Manual) Nucleated RBC % Seg Neutrophils # Seg Neutrophils # Man Lymphocytes # (Manual) Monocytes # (Manual) Eosinophils # (Manual) Basophils # (Manual) PT INR Fibrinogen dRVVT Confirm Interp Factor V Activity POC ABG pH POC ABG pCO2 POC ABG pO2 ABG pO2 ABG HCO3 ABG Base Excess ABG Hemoglobin Oxyhemoglobin Sodium Potassium Chloride Carbon Dioxide BUN 60 H Creatinine 1.3 H Glucose 126 H POC Glucose 127 H 144 H Lactic Acid Calcium Ionized Calcium Phosphorus Magnesium Direct Bilirubin AST ALT Alkaline Phosphatase Lactate Dehydrogenase Troponin T C-Reactive Protein Total Protein Albumin Prealbumin Triglycerides Cholesterol LDL Cholesterol Direct HDL Cholesterol 25-OH Vitamin D Total PTH Intact Urine pH Urine WBC (Auto) Urine Creatinine Urine Total Protein Fluid Total Protein Vancomycin Trough Rheumatoid Factor Complement C4 Miscellaneous Test Crossmatch 12/13/16 12/13/16 12/13/16 04:00 04:00 05:19 WBC 18.7 H RBC 2.89 L Hgb 8.3 L Hct 24.6 L MCV MCH MCHC RDW 17.5 H Plt Count Lymph % (Auto) [place] % (Auto) Lymph # [place] # 1.3 H Baso # Seg Neutrophils % 71.5 H Seg Neuts % (Manual) Lymphocytes % (Manual) Monocytes % (Manual) Eosinophils % (Manual) Basophils % (Manual) Nucleated RBC % Seg Neutrophils # 13.4 H Seg Neutrophils # Man Lymphocytes # (Manual) Monocytes # (Manual) Eosinophils # (Manual) Basophils # (Manual) PT INR Fibrinogen dRVVT Confirm Interp Factor V Activity POC ABG pH POC ABG pCO2 POC ABG pO2 ABG pO2 ABG HCO3 ABG Base Excess ABG Hemoglobin Oxyhemoglobin Sodium Potassium Chloride Carbon Dioxide BUN 73 H Creatinine 1.5 H Glucose 141 H POC Glucose 171 H Lactic Acid Calcium Ionized Calcium Phosphorus Magnesium Direct Bilirubin AST ALT Alkaline Phosphatase Lactate Dehydrogenase Troponin T C-Reactive Protein Total Protein Albumin Prealbumin Triglycerides Cholesterol LDL Cholesterol Direct HDL Cholesterol 25-OH Vitamin D Total PTH Intact Urine pH Urine WBC (Auto) Urine Creatinine Urine Total Protein Fluid Total Protein Vancomycin Trough Rheumatoid Factor Complement C4 Miscellaneous Test Crossmatch 12/13/16 12/13/16 12/14/16 12:28 16:48 00:01 WBC RBC Hgb Hct MCV MCH MCHC RDW Plt Count Lymph % (Auto) [place] % (Auto) Lymph # [place] # Baso # Seg Neutrophils % Seg Neuts % (Manual) Lymphocytes % (Manual) Monocytes % (Manual) Eosinophils % (Manual) Basophils % (Manual) Nucleated RBC % Seg Neutrophils # Seg Neutrophils # Man Lymphocytes # (Manual) Monocytes # (Manual) Eosinophils # (Manual) Basophils # (Manual) PT INR Fibrinogen dRVVT Confirm Interp Factor V Activity POC ABG pH POC ABG pCO2 POC ABG pO2 ABG pO2 ABG HCO3 ABG Base Excess ABG Hemoglobin Oxyhemoglobin Sodium Potassium Chloride Carbon Dioxide BUN Creatinine Glucose POC Glucose 206 H 173 H 139 H Lactic Acid Calcium Ionized Calcium Phosphorus Magnesium Direct Bilirubin AST ALT Alkaline Phosphatase Lactate Dehydrogenase Troponin T C-Reactive Protein Total Protein Albumin Prealbumin Triglycerides Cholesterol LDL Cholesterol Direct HDL Cholesterol 25-OH Vitamin D Total PTH Intact Urine pH Urine WBC (Auto) Urine Creatinine Urine Total Protein Fluid Total Protein Vancomycin Trough Rheumatoid Factor Complement C4 Miscellaneous Test Crossmatch 12/14/16 12/14/16 12/14/16 05:16 06:10 11:17 WBC RBC Hgb Hct MCV MCH MCHC RDW Plt Count Lymph % (Auto) [place] % (Auto) Lymph # [place] # Baso # Seg Neutrophils % Seg Neuts % (Manual) Lymphocytes % (Manual) Monocytes % (Manual) Eosinophils % (Manual) Basophils % (Manual) Nucleated RBC % Seg Neutrophils # Seg Neutrophils # Man Lymphocytes # (Manual) Monocytes # (Manual) Eosinophils # (Manual) Basophils # (Manual) PT INR Fibrinogen dRVVT Confirm Interp Factor V Activity POC ABG pH POC ABG pCO2 POC ABG pO2 ABG pO2 ABG HCO3 ABG Base Excess ABG Hemoglobin Oxyhemoglobin Sodium Potassium Chloride Carbon Dioxide BUN 57 H Creatinine 1.4 H Glucose 135 H POC Glucose 158 H 137 H Lactic Acid Calcium Ionized Calcium Phosphorus Magnesium Direct Bilirubin AST ALT Alkaline Phosphatase Lactate Dehydrogenase Troponin T C-Reactive Protein Total Protein Albumin Prealbumin Triglycerides Cholesterol LDL Cholesterol Direct HDL Cholesterol 25-OH Vitamin D Total PTH Intact Urine pH Urine WBC (Auto) Urine Creatinine Urine Total Protein Fluid Total Protein Vancomycin Trough Rheumatoid Factor Complement C4 Miscellaneous Test Crossmatch 12/14/16 12/14/16 12/15/16 17:52 23:27 04:00 WBC RBC Hgb Hct MCV MCH MCHC RDW Plt Count Lymph % (Auto) [place] % (Auto) Lymph # [place] # Baso # Seg Neutrophils % Seg Neuts % (Manual) Lymphocytes % (Manual) Monocytes % (Manual) Eosinophils % (Manual) Basophils % (Manual) Nucleated RBC % Seg Neutrophils # Seg Neutrophils # Man Lymphocytes # (Manual) Monocytes # (Manual) Eosinophils # (Manual) Basophils # (Manual) PT INR Fibrinogen dRVVT Confirm Interp Factor V Activity POC ABG pH POC ABG pCO2 POC ABG pO2 ABG pO2 ABG HCO3 ABG Base Excess ABG Hemoglobin Oxyhemoglobin Sodium Potassium Chloride 97.9 L Carbon Dioxide BUN 75 H Creatinine 1.6 H Glucose 122 H POC Glucose 149 H 163 H Lactic Acid Calcium Ionized Calcium Phosphorus 5.20 H Magnesium Direct Bilirubin AST ALT Alkaline Phosphatase Lactate Dehydrogenase Troponin T C-Reactive Protein Total Protein Albumin Prealbumin Triglycerides Cholesterol LDL Cholesterol Direct HDL Cholesterol 25-OH Vitamin D Total PTH Intact Urine pH Urine WBC (Auto) Urine Creatinine Urine Total Protein Fluid Total Protein Vancomycin Trough Rheumatoid Factor Complement C4 Miscellaneous Test Crossmatch 12/15/16 12/15/16 12/15/16 05:50 11:24 17:01 WBC RBC Hgb Hct MCV MCH MCHC RDW Plt Count Lymph % (Auto) [place] % (Auto) Lymph # [place] # Baso # Seg Neutrophils % Seg Neuts % (Manual) Lymphocytes % (Manual) Monocytes % (Manual) Eosinophils % (Manual) Basophils % (Manual) Nucleated RBC % Seg Neutrophils # Seg Neutrophils # Man Lymphocytes # (Manual) Monocytes # (Manual) Eosinophils # (Manual) Basophils # (Manual) PT INR Fibrinogen dRVVT Confirm Interp Factor V Activity POC ABG pH POC ABG pCO2 POC ABG pO2 ABG pO2 ABG HCO3 ABG Base Excess ABG Hemoglobin Oxyhemoglobin Sodium Potassium Chloride Carbon Dioxide BUN Creatinine Glucose POC Glucose 150 H 146 H 167 H Lactic Acid Calcium Ionized Calcium Phosphorus Magnesium Direct Bilirubin AST ALT Alkaline Phosphatase Lactate Dehydrogenase Troponin T C-Reactive Protein Total Protein Albumin Prealbumin Triglycerides Cholesterol LDL Cholesterol Direct HDL Cholesterol 25-OH Vitamin D Total PTH Intact Urine pH Urine WBC (Auto) Urine Creatinine Urine Total Protein Fluid Total Protein Vancomycin Trough Rheumatoid Factor Complement C4 Miscellaneous Test Crossmatch 12/15/16 12/16/16 12/16/16 23:34 05:25 11:24 WBC RBC Hgb Hct MCV MCH MCHC RDW Plt Count Lymph % (Auto) [place] % (Auto) Lymph # [place] # Baso # Seg Neutrophils % Seg Neuts % (Manual) Lymphocytes % (Manual) Monocytes % (Manual) Eosinophils % (Manual) Basophils % (Manual) Nucleated RBC % Seg Neutrophils # Seg Neutrophils # Man Lymphocytes # (Manual) Monocytes # (Manual) Eosinophils # (Manual) Basophils # (Manual) PT INR Fibrinogen dRVVT Confirm Interp Factor V Activity POC ABG pH POC ABG pCO2 POC ABG pO2 ABG pO2 ABG HCO3 ABG Base Excess ABG Hemoglobin Oxyhemoglobin Sodium Potassium Chloride Carbon Dioxide BUN Creatinine Glucose POC Glucose 127 H 139 H 165 H Lactic Acid Calcium Ionized Calcium Phosphorus Magnesium Direct Bilirubin AST ALT Alkaline Phosphatase Lactate Dehydrogenase Troponin T C-Reactive Protein Total Protein Albumin Prealbumin Triglycerides Cholesterol LDL Cholesterol Direct HDL Cholesterol 25-OH Vitamin D Total PTH Intact Urine pH Urine WBC (Auto) Urine Creatinine Urine Total Protein Fluid Total Protein Vancomycin Trough Rheumatoid Factor Complement C4 Miscellaneous Test Crossmatch 12/16/16 12/16/16 12/16/16 15:30 16:25 17:31 WBC 17.8 H RBC 2.38 L Hgb 6.4 L Hct 20.3 L MCV MCH 27 L MCHC RDW 17.4 H Plt Count Lymph % (Auto) [place] % (Auto) Lymph # [place] # Baso # Seg Neutrophils % Seg Neuts % (Manual) Lymphocytes % (Manual) Monocytes % (Manual) 10.0 H Eosinophils % (Manual) Basophils % (Manual) Nucleated RBC % Seg Neutrophils # Seg Neutrophils # Man 8.5 H Lymphocytes # (Manual) Monocytes # (Manual) 1.8 H Eosinophils # (Manual) Basophils # (Manual) PT INR Fibrinogen dRVVT Confirm Interp Factor V Activity POC ABG pH POC ABG pCO2 POC ABG pO2 ABG pO2 ABG HCO3 ABG Base Excess ABG Hemoglobin Oxyhemoglobin Sodium Potassium Chloride Carbon Dioxide BUN Creatinine Glucose POC Glucose 176 H Lactic Acid Calcium Ionized Calcium Phosphorus Magnesium Direct Bilirubin AST ALT Alkaline Phosphatase Lactate Dehydrogenase Troponin T C-Reactive Protein Total Protein Albumin Prealbumin Triglycerides Cholesterol LDL Cholesterol Direct HDL Cholesterol 25-OH Vitamin D Total PTH Intact Urine pH Urine WBC (Auto) Urine Creatinine Urine Total Protein Fluid Total Protein Vancomycin Trough Rheumatoid Factor Complement C4 Miscellaneous Test Crossmatch See Detail 12/17/16 12/17/16 12/17/16 00:14 04:00 05:00 WBC 20.0 H RBC 2.99 L Hgb 8.5 L Hct 25.7 L MCV MCH MCHC RDW 17.2 H Plt Count Lymph % (Auto) [place] % (Auto) Lymph # [place] # Baso # Seg Neutrophils % Seg Neuts % (Manual) Lymphocytes % (Manual) Monocytes % (Manual) Eosinophils % (Manual) Basophils % (Manual) Nucleated RBC % Seg Neutrophils # Seg Neutrophils # Man Lymphocytes # (Manual) Monocytes # (Manual) Eosinophils # (Manual) Basophils # (Manual) PT INR Fibrinogen dRVVT Confirm Interp Factor V Activity POC ABG pH POC ABG pCO2 POC ABG pO2 ABG pO2 ABG HCO3 ABG Base Excess ABG Hemoglobin Oxyhemoglobin Sodium Potassium Chloride 97.7 L Carbon Dioxide BUN 73 H Creatinine 1.7 H Glucose 136 H POC Glucose 148 H Lactic Acid Calcium Ionized Calcium Phosphorus 2.20 L Magnesium 2.70 H Direct Bilirubin AST ALT Alkaline Phosphatase Lactate Dehydrogenase Troponin T C-Reactive Protein Total Protein Albumin Prealbumin Triglycerides Cholesterol LDL Cholesterol Direct HDL Cholesterol 25-OH Vitamin D Total PTH Intact Urine pH Urine WBC (Auto) Urine Creatinine Urine Total Protein Fluid Total Protein Vancomycin Trough Rheumatoid Factor Complement C4 Miscellaneous Test Crossmatch 12/17/16 12/17/16 12/17/16 05:39 12:50 16:32 WBC RBC Hgb Hct MCV MCH MCHC RDW Plt Count Lymph % (Auto) [place] % (Auto) Lymph # [place] # Baso # Seg Neutrophils % Seg Neuts % (Manual) Lymphocytes % (Manual) Monocytes % (Manual) Eosinophils % (Manual) Basophils % (Manual) Nucleated RBC % Seg Neutrophils # Seg Neutrophils # Man Lymphocytes # (Manual) Monocytes # (Manual) Eosinophils # (Manual) Basophils # (Manual) PT INR Fibrinogen dRVVT Confirm Interp Factor V Activity POC ABG pH POC ABG pCO2 POC ABG pO2 ABG pO2 ABG HCO3 ABG Base Excess ABG Hemoglobin Oxyhemoglobin Sodium Potassium Chloride Carbon Dioxide BUN Creatinine Glucose POC Glucose 162 H 146 H 169 H Lactic Acid Calcium Ionized Calcium Phosphorus Magnesium Direct Bilirubin AST ALT Alkaline Phosphatase Lactate Dehydrogenase Troponin T C-Reactive Protein Total Protein Albumin Prealbumin Triglycerides Cholesterol LDL Cholesterol Direct HDL Cholesterol 25-OH Vitamin D Total PTH Intact Urine pH Urine WBC (Auto) Urine Creatinine Urine Total Protein Fluid Total Protein Vancomycin Trough Rheumatoid Factor Complement C4 Miscellaneous Test Crossmatch 12/17/16 12/18/16 12/18/16 23:57 05:00 05:32 WBC RBC Hgb Hct MCV MCH MCHC RDW Plt Count Lymph % (Auto) [place] % (Auto) Lymph # [place] # Baso # Seg Neutrophils % Seg Neuts % (Manual) Lymphocytes % (Manual) Monocytes % (Manual) Eosinophils % (Manual) Basophils % (Manual) Nucleated RBC % Seg Neutrophils # Seg Neutrophils # Man Lymphocytes # (Manual) Monocytes # (Manual) Eosinophils # (Manual) Basophils # (Manual) PT INR Fibrinogen dRVVT Confirm Interp Factor V Activity POC ABG pH POC ABG pCO2 POC ABG pO2 ABG pO2 ABG HCO3 ABG Base Excess ABG Hemoglobin Oxyhemoglobin Sodium Potassium Chloride 97.0 L Carbon Dioxide BUN 63 H Creatinine 1.4 H Glucose 174 H POC Glucose 145 H 201 H Lactic Acid Calcium Ionized Calcium Phosphorus 1.70 L D Magnesium Direct Bilirubin AST ALT Alkaline Phosphatase 257 H Lactate Dehydrogenase Troponin T C-Reactive Protein Total Protein 5.9 L Albumin 1.8 L Prealbumin Triglycerides Cholesterol LDL Cholesterol Direct HDL Cholesterol 25-OH Vitamin D Total PTH Intact Urine pH Urine WBC (Auto) Urine Creatinine Urine Total Protein Fluid Total Protein Vancomycin Trough Rheumatoid Factor Complement C4 Miscellaneous Test Crossmatch 12/18/16 12/18/16 12/18/16 11:43 16:52 23:52 WBC RBC Hgb Hct MCV MCH MCHC RDW Plt Count Lymph % (Auto) [place] % (Auto) Lymph # [place] # Baso # Seg Neutrophils % Seg Neuts % (Manual) Lymphocytes % (Manual) Monocytes % (Manual) Eosinophils % (Manual) Basophils % (Manual) Nucleated RBC % Seg Neutrophils # Seg Neutrophils # Man Lymphocytes # (Manual) Monocytes # (Manual) Eosinophils # (Manual) Basophils # (Manual) PT INR Fibrinogen dRVVT Confirm Interp Factor V Activity POC ABG pH POC ABG pCO2 POC ABG pO2 ABG pO2 ABG HCO3 ABG Base Excess ABG Hemoglobin Oxyhemoglobin Sodium Potassium Chloride Carbon Dioxide BUN Creatinine Glucose POC Glucose 177 H 110 H 162 H Lactic Acid Calcium Ionized Calcium Phosphorus Magnesium Direct Bilirubin AST ALT Alkaline Phosphatase Lactate Dehydrogenase Troponin T C-Reactive Protein Total Protein Albumin Prealbumin Triglycerides Cholesterol LDL Cholesterol Direct HDL Cholesterol 25-OH Vitamin D Total PTH Intact Urine pH Urine WBC (Auto) Urine Creatinine Urine Total Protein Fluid Total Protein Vancomycin Trough Rheumatoid Factor Complement C4 Miscellaneous Test Crossmatch 12/19/16 12/19/16 12/19/16 05:02 05:24 09:30 WBC 20.1 H RBC 2.73 L Hgb 7.6 L Hct 23.6 L MCV MCH MCHC RDW 17.6 H Plt Count Lymph % (Auto) [place] % (Auto) Lymph # [place] # Baso # Seg Neutrophils % Seg Neuts % (Manual) Lymphocytes % (Manual) 13.0 L Monocytes % (Manual) Eosinophils % (Manual) Basophils % (Manual) Nucleated RBC % 1.0 H Seg Neutrophils # Seg Neutrophils # Man 12.9 H Lymphocytes # (Manual) Monocytes # (Manual) 1.4 H Eosinophils # (Manual) Basophils # (Manual) 0.2 H PT INR Fibrinogen dRVVT Confirm Interp Factor V Activity POC ABG pH POC ABG pCO2 POC ABG pO2 ABG pO2 ABG HCO3 ABG Base Excess ABG Hemoglobin Oxyhemoglobin Sodium Potassium Chloride 97.8 L Carbon Dioxide BUN 84 H Creatinine 1.6 H Glucose 133 H POC Glucose 134 H Lactic Acid Calcium Ionized Calcium Phosphorus Magnesium Direct Bilirubin AST ALT Alkaline Phosphatase Lactate Dehydrogenase Troponin T C-Reactive Protein Total Protein Albumin Prealbumin Triglycerides Cholesterol LDL Cholesterol Direct HDL Cholesterol 25-OH Vitamin D Total PTH Intact Urine pH Urine WBC (Auto) Urine Creatinine Urine Total Protein Fluid Total Protein Vancomycin Trough Rheumatoid Factor Complement C4 Miscellaneous Test Crossmatch 12/19/16 12/19/16 12/19/16 09:36 11:12 18:29 WBC RBC Hgb Hct MCV MCH MCHC RDW Plt Count Lymph % (Auto) [place] % (Auto) Lymph # [place] # Baso # Seg Neutrophils % Seg Neuts % (Manual) Lymphocytes % (Manual) Monocytes % (Manual) Eosinophils % (Manual) Basophils % (Manual) Nucleated RBC % Seg Neutrophils # Seg Neutrophils # Man Lymphocytes # (Manual) Monocytes # (Manual) Eosinophils # (Manual) Basophils # (Manual) PT INR Fibrinogen dRVVT Confirm Interp Factor V Activity POC ABG pH 7.503 H POC ABG pCO2 30.1 L POC ABG pO2 ABG pO2 ABG HCO3 ABG Base Excess ABG Hemoglobin Oxyhemoglobin Sodium Potassium Chloride Carbon Dioxide BUN Creatinine Glucose POC Glucose 138 H 156 H Lactic Acid Calcium Ionized Calcium Phosphorus Magnesium Direct Bilirubin AST ALT Alkaline Phosphatase Lactate Dehydrogenase Troponin T C-Reactive Protein Total Protein Albumin Prealbumin Triglycerides Cholesterol LDL Cholesterol Direct HDL Cholesterol 25-OH Vitamin D Total PTH Intact Urine pH Urine WBC (Auto) Urine Creatinine Urine Total Protein Fluid Total Protein Vancomycin Trough Rheumatoid Factor Complement C4 Miscellaneous Test Crossmatch 12/20/16 12/20/16 12/20/16 00:03 06:17 07:07 WBC RBC Hgb Hct MCV MCH MCHC RDW Plt Count Lymph % (Auto) [place] % (Auto) Lymph # [place] # Baso # Seg Neutrophils % Seg Neuts % (Manual) Lymphocytes % (Manual) Monocytes % (Manual) Eosinophils % (Manual) Basophils % (Manual) Nucleated RBC % Seg Neutrophils # Seg Neutrophils # Man Lymphocytes # (Manual) Monocytes # (Manual) Eosinophils # (Manual) Basophils # (Manual) PT INR Fibrinogen dRVVT Confirm Interp Factor V Activity POC ABG pH POC ABG pCO2 POC ABG pO2 ABG pO2 ABG HCO3 ABG Base Excess ABG Hemoglobin Oxyhemoglobin Sodium Potassium Chloride 97.1 L Carbon Dioxide 20 L BUN 97 H Creatinine 1.8 H Glucose 153 H POC Glucose 152 H 175 H Lactic Acid Calcium Ionized Calcium Phosphorus Magnesium Direct Bilirubin AST ALT Alkaline Phosphatase Lactate Dehydrogenase Troponin T C-Reactive Protein Total Protein Albumin Prealbumin Triglycerides Cholesterol LDL Cholesterol Direct HDL Cholesterol 25-OH Vitamin D Total PTH Intact Urine pH Urine WBC (Auto) Urine Creatinine Urine Total Protein Fluid Total Protein Vancomycin Trough Rheumatoid Factor Complement C4 Miscellaneous Test Crossmatch 12/20/16 12/20/16 12/20/16 12:00 17:42 23:53 WBC RBC Hgb Hct MCV MCH MCHC RDW Plt Count Lymph % (Auto) [place] % (Auto) Lymph # [place] # Baso # Seg Neutrophils % Seg Neuts % (Manual) Lymphocytes % (Manual) Monocytes % (Manual) Eosinophils % (Manual) Basophils % (Manual) Nucleated RBC % Seg Neutrophils # Seg Neutrophils # Man Lymphocytes # (Manual) Monocytes # (Manual) Eosinophils # (Manual) Basophils # (Manual) PT INR Fibrinogen dRVVT Confirm Interp Factor V Activity POC ABG pH POC ABG pCO2 POC ABG pO2 ABG pO2 ABG HCO3 ABG Base Excess ABG Hemoglobin Oxyhemoglobin Sodium Potassium Chloride Carbon Dioxide BUN Creatinine Glucose POC Glucose 141 H 156 H 132 H Lactic Acid Calcium Ionized Calcium Phosphorus Magnesium Direct Bilirubin AST ALT Alkaline Phosphatase Lactate Dehydrogenase Troponin T C-Reactive Protein Total Protein Albumin Prealbumin Triglycerides Cholesterol LDL Cholesterol Direct HDL Cholesterol 25-OH Vitamin D Total PTH Intact Urine pH Urine WBC (Auto) Urine Creatinine Urine Total Protein Fluid Total Protein Vancomycin Trough Rheumatoid Factor Complement C4 Miscellaneous Test Crossmatch 12/21/16 12/21/16 12/21/16 05:49 08:50 12:19 WBC RBC Hgb Hct MCV MCH MCHC RDW Plt Count Lymph % (Auto) [place] % (Auto) Lymph # [place] # Baso # Seg Neutrophils % Seg Neuts % (Manual) Lymphocytes % (Manual) Monocytes % (Manual) Eosinophils % (Manual) Basophils % (Manual) Nucleated RBC % Seg Neutrophils # Seg Neutrophils # Man Lymphocytes # (Manual) Monocytes # (Manual) Eosinophils # (Manual) Basophils # (Manual) PT INR Fibrinogen dRVVT Confirm Interp Factor V Activity POC ABG pH POC ABG pCO2 POC ABG pO2 ABG pO2 ABG HCO3 ABG Base Excess ABG Hemoglobin Oxyhemoglobin Sodium Potassium 5.2 H D Chloride Carbon Dioxide BUN 63 H Creatinine Glucose 122 H POC Glucose 132 H 136 H Lactic Acid Calcium 8.3 L Ionized Calcium Phosphorus Magnesium Direct Bilirubin AST ALT Alkaline Phosphatase Lactate Dehydrogenase Troponin T C-Reactive Protein Total Protein Albumin Prealbumin Triglycerides Cholesterol LDL Cholesterol Direct HDL Cholesterol 25-OH Vitamin D Total PTH Intact Urine pH Urine WBC (Auto) Urine Creatinine Urine Total Protein Fluid Total Protein Vancomycin Trough Rheumatoid Factor Complement C4 Miscellaneous Test Crossmatch 12/21/16 12/21/16 12/22/16 17:22 23:58 05:49 WBC RBC Hgb Hct MCV MCH MCHC RDW Plt Count Lymph % (Auto) [place] % (Auto) Lymph # [place] # Baso # Seg Neutrophils % Seg Neuts % (Manual) Lymphocytes % (Manual) Monocytes % (Manual) Eosinophils % (Manual) Basophils % (Manual) Nucleated RBC % Seg Neutrophils # Seg Neutrophils # Man Lymphocytes # (Manual) Monocytes # (Manual) Eosinophils # (Manual) Basophils # (Manual) PT INR Fibrinogen dRVVT Confirm Interp Factor V Activity POC ABG pH POC ABG pCO2 POC ABG pO2 ABG pO2 ABG HCO3 ABG Base Excess ABG Hemoglobin Oxyhemoglobin Sodium Potassium Chloride Carbon Dioxide BUN Creatinine Glucose POC Glucose 135 H 149 H 140 H Lactic Acid Calcium Ionized Calcium Phosphorus Magnesium Direct Bilirubin AST ALT Alkaline Phosphatase Lactate Dehydrogenase Troponin T C-Reactive Protein Total Protein Albumin Prealbumin Triglycerides Cholesterol LDL Cholesterol Direct HDL Cholesterol 25-OH Vitamin D Total PTH Intact Urine pH Urine WBC (Auto) Urine Creatinine Urine Total Protein Fluid Total Protein Vancomycin Trough Rheumatoid Factor Complement C4 Miscellaneous Test Crossmatch 12/22/16 12/22/16 12/22/16 06:10 11: 17:31 WBC RBC Hgb Hct MCV MCH MCHC RDW Plt Count Lymph % (Auto) [place] % (Auto) Lymph # [place] # Baso # Seg Neutrophils % Seg Neuts % (Manual) Lymphocytes % (Manual) Monocytes % (Manual) Eosinophils % (Manual) Basophils % (Manual) Nucleated RBC % Seg Neutrophils # Seg Neutrophils # Man Lymphocytes # (Manual) Monocytes # (Manual) Eosinophils # (Manual) Basophils # (Manual) PT INR Fibrinogen dRVVT Confirm Interp Factor V Activity POC ABG pH POC ABG pCO2 POC ABG pO2 ABG pO2 ABG HCO3 ABG Base Excess ABG Hemoglobin Oxyhemoglobin Sodium Potassium Chloride Carbon Dioxide BUN 76 H Creatinine 1.5 H Glucose 241 H POC Glucose 193 H 148 H Lactic Acid Calcium Ionized Calcium Phosphorus Magnesium Direct Bilirubin AST ALT Alkaline Phosphatase Lactate Dehydrogenase Troponin T C-Reactive Protein Total Protein Albumin Prealbumin Triglycerides Cholesterol LDL Cholesterol Direct HDL Cholesterol 25-OH Vitamin D Total PTH Intact Urine pH Urine WBC (Auto) Urine Creatinine Urine Total Protein Fluid Total Protein Vancomycin Trough Rheumatoid Factor Complement C4 Miscellaneous Test Crossmatch 12/22/16 12/23/16 12/23/16 23:58 05:00 05:26 WBC RBC Hgb Hct MCV MCH MCHC RDW Plt Count Lymph % (Auto) [place] % (Auto) Lymph # [place] # Baso # Seg Neutrophils % Seg Neuts % (Manual) Lymphocytes % (Manual) Monocytes % (Manual) Eosinophils % (Manual) Basophils % (Manual) Nucleated RBC % Seg Neutrophils # Seg Neutrophils # Man Lymphocytes # (Manual) Monocytes # (Manual) Eosinophils # (Manual) Basophils # (Manual) PT INR Fibrinogen dRVVT Confirm Interp Factor V Activity POC ABG pH POC ABG pCO2 POC ABG pO2 ABG pO2 ABG HCO3 ABG Base Excess ABG Hemoglobin Oxyhemoglobin Sodium Potassium Chloride Carbon Dioxide BUN 49 H Creatinine Glucose 143 H POC Glucose 165 H 154 H Lactic Acid Calcium 8.2 L Ionized Calcium Phosphorus Magnesium 1.60 L Direct Bilirubin AST ALT Alkaline Phosphatase Lactate Dehydrogenase Troponin T C-Reactive Protein Total Protein Albumin Prealbumin Triglycerides Cholesterol LDL Cholesterol Direct HDL Cholesterol 25-OH Vitamin D Total PTH Intact Urine pH Urine WBC (Auto) Urine Creatinine Urine Total Protein Fluid Total Protein Vancomycin Trough Rheumatoid Factor Complement C4 Miscellaneous Test Crossmatch 12/23/16 12/23/16 12/24/16 12:35 17:01 00:01 WBC RBC Hgb Hct MCV MCH MCHC RDW Plt Count Lymph % (Auto) [place] % (Auto) Lymph # [place] # Baso # Seg Neutrophils % Seg Neuts % (Manual) Lymphocytes % (Manual) Monocytes % (Manual) Eosinophils % (Manual) Basophils % (Manual) Nucleated RBC % Seg Neutrophils # Seg Neutrophils # Man Lymphocytes # (Manual) Monocytes # (Manual) Eosinophils # (Manual) Basophils # (Manual) PT INR Fibrinogen dRVVT Confirm Interp Factor V Activity POC ABG pH POC ABG pCO2 POC ABG pO2 ABG pO2 ABG HCO3 ABG Base Excess ABG Hemoglobin Oxyhemoglobin Sodium Potassium Chloride Carbon Dioxide BUN Creatinine Glucose POC Glucose 164 H 149 H 135 H Lactic Acid Calcium Ionized Calcium Phosphorus Magnesium Direct Bilirubin AST ALT Alkaline Phosphatase Lactate Dehydrogenase Troponin T C-Reactive Protein Total Protein Albumin Prealbumin Triglycerides Cholesterol LDL Cholesterol Direct HDL Cholesterol 25-OH Vitamin D Total PTH Intact Urine pH Urine WBC (Auto) Urine Creatinine Urine Total Protein Fluid Total Protein Vancomycin Trough Rheumatoid Factor Complement C4 Miscellaneous Test Crossmatch 12/24/16 12/24/16 12/24/16 05:41 07:01 11:38 WBC RBC Hgb Hct MCV MCH MCHC RDW Plt Count Lymph % (Auto) [place] % (Auto) Lymph # [place] # Baso # Seg Neutrophils % Seg Neuts % (Manual) Lymphocytes % (Manual) Monocytes % (Manual) Eosinophils % (Manual) Basophils % (Manual) Nucleated RBC % Seg Neutrophils # Seg Neutrophils # Man Lymphocytes # (Manual) Monocytes # (Manual) Eosinophils # (Manual) Basophils # (Manual) PT INR Fibrinogen dRVVT Confirm Interp Factor V Activity POC ABG pH POC ABG pCO2 POC ABG pO2 ABG pO2 ABG HCO3 ABG Base Excess ABG Hemoglobin Oxyhemoglobin Sodium Potassium Chloride Carbon Dioxide BUN 72 H Creatinine 1.3 H Glucose 130 H POC Glucose 132 H 156 H Lactic Acid Calcium 8.2 L Ionized Calcium Phosphorus Magnesium Direct Bilirubin AST ALT Alkaline Phosphatase Lactate Dehydrogenase Troponin T C-Reactive Protein Total Protein Albumin Prealbumin Triglycerides Cholesterol LDL Cholesterol Direct HDL Cholesterol 25-OH Vitamin D Total PTH Intact Urine pH Urine WBC (Auto) Urine Creatinine Urine Total Protein Fluid Total Protein Vancomycin Trough Rheumatoid Factor Complement C4 Miscellaneous Test Crossmatch 12/24/16 12/25/16 12/25/16 17:53 00:23 05:45 WBC RBC Hgb Hct MCV MCH MCHC RDW Plt Count Lymph % (Auto) [place] % (Auto) Lymph # [place] # Baso # Seg Neutrophils % Seg Neuts % (Manual) Lymphocytes % (Manual) Monocytes % (Manual) Eosinophils % (Manual) Basophils % (Manual) Nucleated RBC % Seg Neutrophils # Seg Neutrophils # Man Lymphocytes # (Manual) Monocytes # (Manual) Eosinophils # (Manual) Basophils # (Manual) PT INR Fibrinogen dRVVT Confirm Interp Factor V Activity POC ABG pH POC ABG pCO2 POC ABG pO2 ABG pO2 ABG HCO3 ABG Base Excess ABG Hemoglobin Oxyhemoglobin Sodium 146 H Potassium Chloride Carbon Dioxide BUN 51 H Creatinine Glucose 109 H POC Glucose 169 H 117 H Lactic Acid Calcium Ionized Calcium Phosphorus Magnesium Direct Bilirubin AST ALT Alkaline Phosphatase Lactate Dehydrogenase Troponin T C-Reactive Protein Total Protein Albumin Prealbumin Triglycerides Cholesterol LDL Cholesterol Direct HDL Cholesterol 25-OH Vitamin D Total PTH Intact Urine pH Urine WBC (Auto) Urine Creatinine Urine Total Protein Fluid Total Protein Vancomycin Trough Rheumatoid Factor Complement C4 Miscellaneous Test Crossmatch 12/25/16 12/25/16 12/25/16 06:43 11:29 17:14 WBC RBC Hgb Hct MCV MCH MCHC RDW Plt Count Lymph % (Auto) [place] % (Auto) Lymph # [place] # Baso # Seg Neutrophils % Seg Neuts % (Manual) Lymphocytes % (Manual) Monocytes % (Manual) Eosinophils % (Manual) Basophils % (Manual) Nucleated RBC % Seg Neutrophils # Seg Neutrophils # Man Lymphocytes # (Manual) Monocytes # (Manual) Eosinophils # (Manual) Basophils # (Manual) PT INR Fibrinogen dRVVT Confirm Interp Factor V Activity POC ABG pH POC ABG pCO2 POC ABG pO2 ABG pO2 ABG HCO3 ABG Base Excess ABG Hemoglobin Oxyhemoglobin Sodium Potassium Chloride Carbon Dioxide BUN Creatinine Glucose POC Glucose 117 H 128 H 120 H Lactic Acid Calcium Ionized Calcium Phosphorus Magnesium Direct Bilirubin AST ALT Alkaline Phosphatase Lactate Dehydrogenase Troponin T C-Reactive Protein Total Protein Albumin Prealbumin Triglycerides Cholesterol LDL Cholesterol Direct HDL Cholesterol 25-OH Vitamin D Total PTH Intact Urine pH Urine WBC (Auto) Urine Creatinine Urine Total Protein Fluid Total Protein Vancomycin Trough Rheumatoid Factor Complement C4 Miscellaneous Test Crossmatch 12/25/16 12/26/16 12/26/16 23:54 05:40 05:50 WBC 16.2 H RBC 2.32 L Hgb 6.2 L Hct 20.1 L MCV MCH 27 L MCHC RDW 18.6 H Plt Count Lymph % (Auto) [place] % (Auto) Lymph # [place] # Baso # Seg Neutrophils % Seg Neuts % (Manual) Lymphocytes % (Manual) Monocytes % (Manual) Eosinophils % (Manual) Basophils % (Manual) Nucleated RBC % Seg Neutrophils # Seg Neutrophils # Man Lymphocytes # (Manual) Monocytes # (Manual) Eosinophils # (Manual) Basophils # (Manual) PT INR Fibrinogen dRVVT Confirm Interp Factor V Activity POC ABG pH POC ABG pCO2 POC ABG pO2 ABG pO2 ABG HCO3 ABG Base Excess ABG Hemoglobin Oxyhemoglobin Sodium Potassium Chloride Carbon Dioxide BUN Creatinine Glucose POC Glucose 126 H 132 H Lactic Acid Calcium Ionized Calcium Phosphorus Magnesium Direct Bilirubin AST ALT Alkaline Phosphatase Lactate Dehydrogenase Troponin T C-Reactive Protein Total Protein Albumin Prealbumin Triglycerides Cholesterol LDL Cholesterol Direct HDL Cholesterol 25-OH Vitamin D Total PTH Intact Urine pH Urine WBC (Auto) Urine Creatinine Urine Total Protein Fluid Total Protein Vancomycin Trough Rheumatoid Factor Complement C4 Miscellaneous Test Crossmatch 12/26/16 12/26/16 12/26/16 05:50 12:17 12:33 WBC RBC Hgb Hct MCV MCH MCHC RDW Plt Count Lymph % (Auto) [place] % (Auto) Lymph # [place] # Baso # Seg Neutrophils % Seg Neuts % (Manual) Lymphocytes % (Manual) Monocytes % (Manual) Eosinophils % (Manual) Basophils % (Manual) Nucleated RBC % Seg Neutrophils # Seg Neutrophils # Man Lymphocytes # (Manual) Monocytes # (Manual) Eosinophils # (Manual) Basophils # (Manual) PT INR Fibrinogen dRVVT Confirm Interp Factor V Activity POC ABG pH POC ABG pCO2 POC ABG pO2 ABG pO2 ABG HCO3 ABG Base Excess ABG Hemoglobin Oxyhemoglobin Sodium Potassium Chloride Carbon Dioxide BUN 73 H Creatinine 1.3 H Glucose 113 H POC Glucose 117 H Lactic Acid Calcium Ionized Calcium Phosphorus Magnesium Direct Bilirubin AST ALT Alkaline Phosphatase Lactate Dehydrogenase Troponin T C-Reactive Protein Total Protein Albumin Prealbumin Triglycerides Cholesterol LDL Cholesterol Direct HDL Cholesterol 25-OH Vitamin D Total PTH Intact Urine pH Urine WBC (Auto) Urine Creatinine Urine Total Protein Fluid Total Protein Vancomycin Trough Rheumatoid Factor Complement C4 Miscellaneous Test Crossmatch See Detail 12/26/16 12/26/16 12/27/16 20:00 23:21 05:00 WBC RBC Hgb 8.4 L Hct 26.3 L D MCV MCH MCHC RDW Plt Count Lymph % (Auto) [place] % (Auto) Lymph # [place] # Baso # Seg Neutrophils % Seg Neuts % (Manual) Lymphocytes % (Manual) Monocytes % (Manual) Eosinophils % (Manual) Basophils % (Manual) Nucleated RBC % Seg Neutrophils # Seg Neutrophils # Man Lymphocytes # (Manual) Monocytes # (Manual) Eosinophils # (Manual) Basophils # (Manual) PT INR Fibrinogen dRVVT Confirm Interp Factor V Activity POC ABG pH POC ABG pCO2 POC ABG pO2 ABG pO2 ABG HCO3 ABG Base Excess ABG Hemoglobin Oxyhemoglobin Sodium Potassium Chloride Carbon Dioxide BUN 85 H Creatinine 1.6 H Glucose 118 H POC Glucose 124 H Lactic Acid Calcium Ionized Calcium Phosphorus 4.80 H Magnesium Direct Bilirubin AST ALT Alkaline Phosphatase Lactate Dehydrogenase Troponin T C-Reactive Protein Total Protein Albumin Prealbumin Triglycerides Cholesterol LDL Cholesterol Direct HDL Cholesterol 25-OH Vitamin D Total PTH Intact Urine pH Urine WBC (Auto) Urine Creatinine Urine Total Protein Fluid Total Protein Vancomycin Trough Rheumatoid Factor Complement C4 Miscellaneous Test Crossmatch 12/27/16 12/27/16 12/27/16 05:00 05:35 12:24 WBC RBC Hgb 7.6 L Hct 22.8 L MCV MCH MCHC RDW Plt Count Lymph % (Auto) [place] % (Auto) Lymph # [place] # Baso # Seg Neutrophils % Seg Neuts % (Manual) Lymphocytes % (Manual) Monocytes % (Manual) Eosinophils % (Manual) Basophils % (Manual) Nucleated RBC % Seg Neutrophils # Seg Neutrophils # Man Lymphocytes # (Manual) Monocytes # (Manual) Eosinophils # (Manual) Basophils # (Manual) PT INR Fibrinogen dRVVT Confirm Interp Factor V Activity POC ABG pH POC ABG pCO2 POC ABG pO2 ABG pO2 ABG HCO3 ABG Base Excess ABG Hemoglobin Oxyhemoglobin Sodium Potassium Chloride Carbon Dioxide BUN Creatinine Glucose POC Glucose 115 H 131 H Lactic Acid Calcium Ionized Calcium Phosphorus Magnesium Direct Bilirubin AST ALT Alkaline Phosphatase Lactate Dehydrogenase Troponin T C-Reactive Protein Total Protein Albumin Prealbumin Triglycerides Cholesterol LDL Cholesterol Direct HDL Cholesterol 25-OH Vitamin D Total PTH Intact Urine pH Urine WBC (Auto) Urine Creatinine Urine Total Protein Fluid Total Protein Vancomycin Trough Rheumatoid Factor Complement C4 Miscellaneous Test Crossmatch 12/27/16 12/28/16 12/28/16 17:16 00:18 04:00 WBC RBC Hgb Hct MCV MCH MCHC RDW Plt Count Lymph % (Auto) [place] % (Auto) Lymph # [place] # Baso # Seg Neutrophils % Seg Neuts % (Manual) Lymphocytes % (Manual) Monocytes % (Manual) Eosinophils % (Manual) Basophils % (Manual) Nucleated RBC % Seg Neutrophils # Seg Neutrophils # Man Lymphocytes # (Manual) Monocytes # (Manual) Eosinophils # (Manual) Basophils # (Manual) PT INR Fibrinogen dRVVT Confirm Interp Factor V Activity POC ABG pH POC ABG pCO2 POC ABG pO2 ABG pO2 ABG HCO3 ABG Base Excess ABG Hemoglobin Oxyhemoglobin Sodium Potassium 3.5 L Chloride Carbon Dioxide BUN 57 H Creatinine Glucose 118 H POC Glucose 136 H 120 H Lactic Acid Calcium 8.3 L Ionized Calcium Phosphorus Magnesium Direct Bilirubin AST ALT Alkaline Phosphatase Lactate Dehydrogenase Troponin T C-Reactive Protein Total Protein Albumin Prealbumin Triglycerides Cholesterol LDL Cholesterol Direct HDL Cholesterol 25-OH Vitamin D Total PTH Intact Urine pH Urine WBC (Auto) Urine Creatinine Urine Total Protein Fluid Total Protein Vancomycin Trough Rheumatoid Factor Complement C4 Miscellaneous Test Crossmatch 12/28/16 12/28/16 12/28/16 04:00 05:11 08:30 WBC 17.0 H RBC 2.58 L Hgb 7.1 L Hct 22.0 L MCV MCH MCHC RDW 17.6 H Plt Count Lymph % (Auto) 12.[address] [place] % (Auto) Lymph # [place] # 1.1 H Baso # Seg Neutrophils % 80.5 H Seg Neuts % (Manual) Lymphocytes % (Manual) Monocytes % (Manual) Eosinophils % (Manual) Basophils % (Manual) Nucleated RBC % Seg Neutrophils # 13.7 H Seg Neutrophils # Man Lymphocytes # (Manual) Monocytes # (Manual) Eosinophils # (Manual) Basophils # (Manual) PT 16.1 H INR 1.23 H Fibrinogen dRVVT Confirm Interp Factor V Activity POC ABG pH POC ABG pCO2 POC ABG pO2 ABG pO2 ABG HCO3 ABG Base Excess ABG Hemoglobin Oxyhemoglobin Sodium Potassium Chloride Carbon Dioxide BUN Creatinine Glucose POC Glucose 122 H Lactic Acid Calcium Ionized Calcium Phosphorus Magnesium Direct Bilirubin AST ALT Alkaline Phosphatase Lactate Dehydrogenase Troponin T C-Reactive Protein Total Protein Albumin Prealbumin Triglycerides Cholesterol LDL Cholesterol Direct HDL Cholesterol 25-OH Vitamin D Total PTH Intact Urine pH Urine WBC (Auto) Urine Creatinine Urine Total Protein Fluid Total Protein Vancomycin Trough Rheumatoid Factor Complement C4 Miscellaneous Test Crossmatch 12/28/16 12/28/16 12/28/16 12:27 16:32 23:46 WBC RBC Hgb Hct MCV MCH MCHC RDW Plt Count Lymph % (Auto) [place] % (Auto) Lymph # [place] # Baso # Seg Neutrophils % Seg Neuts % (Manual) Lymphocytes % (Manual) Monocytes % (Manual) Eosinophils % (Manual) Basophils % (Manual) Nucleated RBC % Seg Neutrophils # Seg Neutrophils # Man Lymphocytes # (Manual) Monocytes # (Manual) Eosinophils # (Manual) Basophils # (Manual) PT INR Fibrinogen dRVVT Confirm Interp Factor V Activity POC ABG pH POC ABG pCO2 POC ABG pO2 ABG pO2 ABG HCO3 ABG Base Excess ABG Hemoglobin Oxyhemoglobin Sodium Potassium Chloride Carbon Dioxide BUN Creatinine Glucose POC Glucose 127 H 117 H 108 H Lactic Acid Calcium Ionized Calcium Phosphorus Magnesium Direct Bilirubin AST ALT Alkaline Phosphatase Lactate Dehydrogenase Troponin T C-Reactive Protein Total Protein Albumin Prealbumin Triglycerides Cholesterol LDL Cholesterol Direct HDL Cholesterol 25-OH Vitamin D Total PTH Intact Urine pH Urine WBC (Auto) Urine Creatinine Urine Total Protein Fluid Total Protein Vancomycin Trough Rheumatoid Factor Complement C4 Miscellaneous Test Crossmatch 12/29/16 12/29/16 12/29/16 05:15 05:15 05:32 WBC RBC Hgb Hct MCV MCH MCHC RDW Plt Count Lymph % (Auto) [place] % (Auto) Lymph # [place] # Baso # Seg Neutrophils % Seg Neuts % (Manual) Lymphocytes % (Manual) Monocytes % (Manual) Eosinophils % (Manual) Basophils % (Manual) Nucleated RBC % Seg Neutrophils # Seg Neutrophils # Man Lymphocytes # (Manual) Monocytes # (Manual) Eosinophils # (Manual) Basophils # (Manual) PT INR Fibrinogen dRVVT Confirm Interp Factor V Activity POC ABG pH POC ABG pCO2 POC ABG pO2 ABG pO2 ABG HCO3 ABG Base Excess ABG Hemoglobin Oxyhemoglobin Sodium Potassium Chloride Carbon Dioxide BUN 74 H Creatinine 1.6 H Glucose 111 H POC Glucose 123 H Lactic Acid Calcium Ionized Calcium Phosphorus Magnesium Direct Bilirubin AST ALT Alkaline Phosphatase Lactate Dehydrogenase Troponin T C-Reactive Protein Total Protein Albumin Prealbumin 0.110 L Triglycerides Cholesterol LDL Cholesterol Direct HDL Cholesterol 25-OH Vitamin D Total PTH Intact Urine pH Urine WBC (Auto) Urine Creatinine Urine Total Protein Fluid Total Protein Vancomycin Trough Rheumatoid Factor Complement C4 Miscellaneous Test Crossmatch 12/29/16 12/29/16 12/29/16 11:43 13:45 14:00 WBC 13.8 H RBC 2.26 L Hgb 6.3 L Hct 20.4 L MCV MCH MCHC RDW 18.3 H Plt Count Lymph % (Auto) [place] % (Auto) Lymph # [place] # 0.9 H Baso # Seg Neutrophils % 78.6 H Seg Neuts % (Manual) Lymphocytes % (Manual) Monocytes % (Manual) Eosinophils % (Manual) Basophils % (Manual) Nucleated RBC % Seg Neutrophils # 10.8 H Seg Neutrophils # Man Lymphocytes # (Manual) Monocytes # (Manual) Eosinophils # (Manual) Basophils # (Manual) PT INR Fibrinogen dRVVT Confirm Interp Factor V Activity POC ABG pH POC ABG pCO2 POC ABG pO2 ABG pO2 ABG HCO3 ABG Base Excess ABG Hemoglobin Oxyhemoglobin Sodium Potassium Chloride Carbon Dioxide BUN Creatinine Glucose POC Glucose 133 H Lactic Acid Calcium Ionized Calcium Phosphorus Magnesium Direct Bilirubin AST ALT Alkaline Phosphatase Lactate Dehydrogenase Troponin T C-Reactive Protein Total Protein Albumin Prealbumin Triglycerides Cholesterol LDL Cholesterol Direct HDL Cholesterol 25-OH Vitamin D Total PTH Intact Urine pH Urine WBC (Auto) Urine Creatinine Urine Total Protein Fluid Total Protein Vancomycin Trough Rheumatoid Factor Complement C4 Miscellaneous Test Crossmatch See Detail 12/29/16 12/29/16 12/29/16 17:03 23:15 23:22 WBC RBC Hgb 7.3 L Hct 22.3 L MCV MCH MCHC RDW Plt Count Lymph % (Auto) [place] % (Auto) Lymph # [place] # Baso # Seg Neutrophils % Seg Neuts % (Manual) Lymphocytes % (Manual) Monocytes % (Manual) Eosinophils % (Manual) Basophils % (Manual) Nucleated RBC % Seg Neutrophils # Seg Neutrophils # Man Lymphocytes # (Manual) Monocytes # (Manual) Eosinophils # (Manual) Basophils # (Manual) PT INR Fibrinogen dRVVT Confirm Interp Factor V Activity POC ABG pH POC ABG pCO2 POC ABG pO2 ABG pO2 ABG HCO3 ABG Base Excess ABG Hemoglobin Oxyhemoglobin Sodium Potassium Chloride Carbon Dioxide BUN Creatinine Glucose POC Glucose 139 H 120 H Lactic Acid Calcium Ionized Calcium Phosphorus Magnesium Direct Bilirubin AST ALT Alkaline Phosphatase Lactate Dehydrogenase Troponin T C-Reactive Protein Total Protein Albumin Prealbumin Triglycerides Cholesterol LDL Cholesterol Direct HDL Cholesterol 25-OH Vitamin D Total PTH Intact Urine pH Urine WBC (Auto) Urine Creatinine Urine Total Protein Fluid Total Protein Vancomycin Trough Rheumatoid Factor Complement C4 Miscellaneous Test Crossmatch 12/30/16 12/30/16 12/30/16 04:20 04:20 05:43 WBC 15.6 H RBC 2.81 L Hgb 8.0 L Hct 24.0 L MCV MCH MCHC RDW 16.9 H Plt Count Lymph % (Auto) [place] % (Auto) Lymph # [place] # 1.0 H Baso # Seg Neutrophils % 76.2 H Seg Neuts % (Manual) Lymphocytes % (Manual) Monocytes % (Manual) Eosinophils % (Manual) Basophils % (Manual) Nucleated RBC % Seg Neutrophils # 11.9 H Seg Neutrophils # Man Lymphocytes # (Manual) Monocytes # (Manual) Eosinophils # (Manual) Basophils # (Manual) PT INR Fibrinogen dRVVT Confirm Interp Factor V Activity POC ABG pH POC ABG pCO2 POC ABG pO2 ABG pO2 ABG HCO3 ABG Base Excess ABG Hemoglobin Oxyhemoglobin Sodium Potassium Chloride Carbon Dioxide BUN 87 H Creatinine 1.8 H Glucose 119 H POC Glucose 115 H Lactic Acid Calcium Ionized Calcium Phosphorus Magnesium Direct Bilirubin AST ALT Alkaline Phosphatase Lactate Dehydrogenase Troponin T C-Reactive Protein Total Protein Albumin Prealbumin Triglycerides Cholesterol LDL Cholesterol Direct HDL Cholesterol 25-OH Vitamin D Total PTH Intact Urine pH Urine WBC (Auto) Urine Creatinine Urine Total Protein Fluid Total Protein Vancomycin Trough Rheumatoid Factor Complement C4 Miscellaneous Test Crossmatch 12/30/16 12/30/16 12/31/16 17:27 23:21 04:00 WBC RBC Hgb Hct MCV MCH MCHC RDW Plt Count Lymph % (Auto) [place] % (Auto) Lymph # [place] # Baso # Seg Neutrophils % Seg Neuts % (Manual) Lymphocytes % (Manual) Monocytes % (Manual) Eosinophils % (Manual) Basophils % (Manual) Nucleated RBC % Seg Neutrophils # Seg Neutrophils # Man Lymphocytes # (Manual) Monocytes # (Manual) Eosinophils # (Manual) Basophils # (Manual) PT INR Fibrinogen dRVVT Confirm Interp Factor V Activity POC ABG pH POC ABG pCO2 POC ABG pO2 ABG pO2 ABG HCO3 ABG Base Excess ABG Hemoglobin Oxyhemoglobin Sodium Potassium Chloride Carbon Dioxide BUN 59 H Creatinine Glucose 298 H POC Glucose 144 H 125 H Lactic Acid Calcium Ionized Calcium Phosphorus Magnesium Direct Bilirubin AST ALT Alkaline Phosphatase Lactate Dehydrogenase Troponin T C-Reactive Protein Total Protein Albumin Prealbumin Triglycerides Cholesterol LDL Cholesterol Direct HDL Cholesterol 25-OH Vitamin D Total PTH Intact Urine pH Urine WBC (Auto) Urine Creatinine Urine Total Protein Fluid Total Protein Vancomycin Trough Rheumatoid Factor Complement C4 Miscellaneous Test Crossmatch 12/31/16 12/31/16 12/31/16 05:11 12:18 18:17 WBC RBC Hgb Hct MCV MCH MCHC RDW Plt Count Lymph % (Auto) [place] % (Auto) Lymph # [place] # Baso # Seg Neutrophils % Seg Neuts % (Manual) Lymphocytes % (Manual) Monocytes % (Manual) Eosinophils % (Manual) Basophils % (Manual) Nucleated RBC % Seg Neutrophils # Seg Neutrophils # Man Lymphocytes # (Manual) Monocytes # (Manual) Eosinophils # (Manual) Basophils # (Manual) PT INR Fibrinogen dRVVT Confirm Interp Factor V Activity POC ABG pH POC ABG pCO2 POC ABG pO2 ABG pO2 ABG HCO3 ABG Base Excess ABG Hemoglobin Oxyhemoglobin Sodium Potassium Chloride Carbon Dioxide BUN Creatinine Glucose POC Glucose 167 H 125 H 133 H Lactic Acid Calcium Ionized Calcium Phosphorus Magnesium Direct Bilirubin AST ALT Alkaline Phosphatase Lactate Dehydrogenase Troponin T C-Reactive Protein Total Protein Albumin Prealbumin Triglycerides Cholesterol LDL Cholesterol Direct HDL Cholesterol 25-OH Vitamin D Total PTH Intact Urine pH Urine WBC (Auto) Urine Creatinine Urine Total Protein Fluid Total Protein Vancomycin Trough Rheumatoid Factor Complement C4 Miscellaneous Test Crossmatch 12/31/16 01/01/17 01/01/17 23:55 05:00 05:12 WBC RBC Hgb Hct MCV MCH MCHC RDW Plt Count Lymph % (Auto) [place] % (Auto) Lymph # [place] # Baso # Seg Neutrophils % Seg Neuts % (Manual) Lymphocytes % (Manual) Monocytes % (Manual) Eosinophils % (Manual) Basophils % (Manual) Nucleated RBC % Seg Neutrophils # Seg Neutrophils # Man Lymphocytes # (Manual) Monocytes # (Manual) Eosinophils # (Manual) Basophils # (Manual) PT INR Fibrinogen dRVVT Confirm Interp Factor V Activity POC ABG pH POC ABG pCO2 POC ABG pO2 ABG pO2 ABG HCO3 ABG Base Excess ABG Hemoglobin Oxyhemoglobin Sodium Potassium Chloride Carbon Dioxide BUN 76 H Creatinine 1.5 H Glucose 109 H POC Glucose 129 H 129 H Lactic Acid Calcium Ionized Calcium Phosphorus Magnesium Direct Bilirubin AST ALT Alkaline Phosphatase 536 H Lactate Dehydrogenase Troponin T C-Reactive Protein Total Protein Albumin 1.5 L Prealbumin Triglycerides Cholesterol LDL Cholesterol Direct HDL Cholesterol 25-OH Vitamin D Total PTH Intact Urine pH Urine WBC (Auto) Urine Creatinine Urine Total Protein Fluid Total Protein Vancomycin Trough Rheumatoid Factor Complement C4 Miscellaneous Test Crossmatch 01/01/17 01/01/17 01/01/17 12:25 17:01 23:32 WBC RBC Hgb Hct MCV MCH MCHC RDW Plt Count Lymph % (Auto) [place] % (Auto) Lymph # [place] # Baso # Seg Neutrophils % Seg Neuts % (Manual) Lymphocytes % (Manual) Monocytes % (Manual) Eosinophils % (Manual) Basophils % (Manual) Nucleated RBC % Seg Neutrophils # Seg Neutrophils # Man Lymphocytes # (Manual) Monocytes # (Manual) Eosinophils # (Manual) Basophils # (Manual) PT INR Fibrinogen dRVVT Confirm Interp Factor V Activity POC ABG pH POC ABG pCO2 POC ABG pO2 ABG pO2 ABG HCO3 ABG Base Excess ABG Hemoglobin Oxyhemoglobin Sodium Potassium Chloride Carbon Dioxide BUN Creatinine Glucose POC Glucose 140 H 142 H 112 H Lactic Acid Calcium Ionized Calcium Phosphorus Magnesium Direct Bilirubin AST ALT Alkaline Phosphatase Lactate Dehydrogenase Troponin T C-Reactive Protein Total Protein Albumin Prealbumin Triglycerides Cholesterol LDL Cholesterol Direct HDL Cholesterol 25-OH Vitamin D Total PTH Intact Urine pH Urine WBC (Auto) Urine Creatinine Urine Total Protein Fluid Total Protein Vancomycin Trough Rheumatoid Factor Complement C4 Miscellaneous Test Crossmatch 01/02/17 01/02/17 01/02/17 04:56 06:00 11:37 WBC RBC Hgb Hct MCV MCH MCHC RDW Plt Count Lymph % (Auto) [place] % (Auto) Lymph # [place] # Baso # Seg Neutrophils % Seg Neuts % (Manual) Lymphocytes % (Manual) Monocytes % (Manual) Eosinophils % (Manual) Basophils % (Manual) Nucleated RBC % Seg Neutrophils # Seg Neutrophils # Man Lymphocytes # (Manual) Monocytes # (Manual) Eosinophils # (Manual) Basophils # (Manual) PT INR Fibrinogen dRVVT Confirm Interp Factor V Activity POC ABG pH POC ABG pCO2 POC ABG pO2 ABG pO2 ABG HCO3 ABG Base Excess ABG Hemoglobin Oxyhemoglobin Sodium Potassium Chloride Carbon Dioxide BUN 88 H Creatinine 1.7 H Glucose 113 H POC Glucose 136 H 200 H Lactic Acid Calcium Ionized Calcium Phosphorus Magnesium Direct Bilirubin AST ALT Alkaline Phosphatase Lactate Dehydrogenase Troponin T C-Reactive Protein Total Protein Albumin Prealbumin Triglycerides Cholesterol LDL Cholesterol Direct HDL Cholesterol 25-OH Vitamin D Total PTH Intact Urine pH Urine WBC (Auto) Urine Creatinine Urine Total Protein Fluid Total Protein Vancomycin Trough Rheumatoid Factor Complement C4 Miscellaneous Test Crossmatch 01/02/17 01/02/17 01/03/17 17:42 22:52 04:54 WBC RBC Hgb Hct MCV MCH MCHC RDW Plt Count Lymph % (Auto) [place] % (Auto) Lymph # [place] # Baso # Seg Neutrophils % Seg Neuts % (Manual) Lymphocytes % (Manual) Monocytes % (Manual) Eosinophils % (Manual) Basophils % (Manual) Nucleated RBC % Seg Neutrophils # Seg Neutrophils # Man Lymphocytes # (Manual) Monocytes # (Manual) Eosinophils # (Manual) Basophils # (Manual) PT INR Fibrinogen dRVVT Confirm Interp Factor V Activity POC ABG pH POC ABG pCO2 POC ABG pO2 ABG pO2 ABG HCO3 ABG Base Excess ABG Hemoglobin Oxyhemoglobin Sodium Potassium Chloride Carbon Dioxide BUN Creatinine Glucose POC Glucose 112 H 133 H 111 H Lactic Acid Calcium Ionized Calcium Phosphorus Magnesium Direct Bilirubin AST ALT Alkaline Phosphatase Lactate Dehydrogenase Troponin T C-Reactive Protein Total Protein Albumin Prealbumin Triglycerides Cholesterol LDL Cholesterol Direct HDL Cholesterol 25-OH Vitamin D Total PTH Intact Urine pH Urine WBC (Auto) Urine Creatinine Urine Total Protein Fluid Total Protein Vancomycin Trough Rheumatoid Factor Complement C4 Miscellaneous Test Crossmatch 01/03/17 01/03/17 01/03/17 05:00 05:00 14:02 WBC 11.2 H RBC 2.56 L Hgb 7.2 L Hct 22.3 L MCV MCH MCHC RDW 17.3 H Plt Count Lymph % (Auto) [place] % (Auto) 10.0 H Lymph # [place] # 1.1 H Baso # Seg Neutrophils % 70.5 H Seg Neuts % (Manual) Lymphocytes % (Manual) Monocytes % (Manual) Eosinophils % (Manual) Basophils % (Manual) Nucleated RBC % Seg Neutrophils # 7.9 H Seg Neutrophils # Man Lymphocytes # (Manual) Monocytes # (Manual) Eosinophils # (Manual) Basophils # (Manual) PT INR Fibrinogen dRVVT Confirm Interp Factor V Activity POC ABG pH POC ABG pCO2 POC ABG pO2 ABG pO2 ABG HCO3 ABG Base Excess ABG Hemoglobin Oxyhemoglobin Sodium Potassium Chloride Carbon Dioxide BUN 60 H Creatinine 1.3 H Glucose 110 H POC Glucose 119 H Lactic Acid Calcium Ionized Calcium Phosphorus Magnesium Direct Bilirubin AST ALT Alkaline Phosphatase Lactate Dehydrogenase Troponin T C-Reactive Protein Total Protein Albumin Prealbumin Triglycerides Cholesterol LDL Cholesterol Direct HDL Cholesterol 25-OH Vitamin D Total PTH Intact Urine pH Urine WBC (Auto) Urine Creatinine Urine Total Protein Fluid Total Protein Vancomycin Trough Rheumatoid Factor Complement C4 Miscellaneous Test Crossmatch 01/03/17 01/03/17 01/04/17 18:13 23:40 05:57 WBC RBC Hgb Hct MCV MCH MCHC RDW Plt Count Lymph % (Auto) [place] % (Auto) Lymph # [place] # Baso # Seg Neutrophils % Seg Neuts % (Manual) Lymphocytes % (Manual) Monocytes % (Manual) Eosinophils % (Manual) Basophils % (Manual) Nucleated RBC % Seg Neutrophils # Seg Neutrophils # Man Lymphocytes # (Manual) Monocytes # (Manual) Eosinophils # (Manual) Basophils # (Manual) PT INR Fibrinogen dRVVT Confirm Interp Factor V Activity POC ABG pH POC ABG pCO2 POC ABG pO2 ABG pO2 ABG HCO3 ABG Base Excess ABG Hemoglobin Oxyhemoglobin Sodium Potassium Chloride Carbon Dioxide BUN Creatinine Glucose POC Glucose 107 H 129 H 111 H Lactic Acid Calcium Ionized Calcium Phosphorus Magnesium Direct Bilirubin AST ALT Alkaline Phosphatase Lactate Dehydrogenase Troponin T C-Reactive Protein Total Protein Albumin Prealbumin Triglycerides Cholesterol LDL Cholesterol Direct HDL Cholesterol 25-OH Vitamin D Total PTH Intact Urine pH Urine WBC (Auto) Urine Creatinine Urine Total Protein Fluid Total Protein Vancomycin Trough Rheumatoid Factor Complement C4 Miscellaneous Test Crossmatch 01/04/17 01/04/17 01/04/17 12:46 15:27 17:11 WBC RBC Hgb Hct MCV MCH MCHC RDW Plt Count Lymph % (Auto) [place] % (Auto) Lymph # [place] # Baso # Seg Neutrophils % Seg Neuts % (Manual) Lymphocytes % (Manual) Monocytes % (Manual) Eosinophils % (Manual) Basophils % (Manual) Nucleated RBC % Seg Neutrophils # Seg Neutrophils # Man Lymphocytes # (Manual) Monocytes # (Manual) Eosinophils # (Manual) Basophils # (Manual) PT INR Fibrinogen dRVVT Confirm Interp Factor V Activity POC ABG pH POC ABG pCO2 POC ABG pO2 ABG pO2 ABG HCO3 ABG Base Excess ABG Hemoglobin Oxyhemoglobin Sodium Potassium Chloride Carbon Dioxide BUN 43 H Creatinine Glucose 124 H POC Glucose 159 H 125 H Lactic Acid Calcium 8.0 L Ionized Calcium Phosphorus 2.10 L Magnesium Direct Bilirubin AST ALT Alkaline Phosphatase Lactate Dehydrogenase Troponin T C-Reactive Protein Total Protein Albumin Prealbumin Triglycerides Cholesterol LDL Cholesterol Direct HDL Cholesterol 25-OH Vitamin D Total PTH Intact Urine pH Urine WBC (Auto) Urine Creatinine Urine Total Protein Fluid Total Protein Vancomycin Trough Rheumatoid Factor Complement C4 Miscellaneous Test Crossmatch 01/04/17 01/05/17 01/05/17 23:31 04:00 05:46 WBC RBC Hgb Hct MCV MCH MCHC RDW Plt Count Lymph % (Auto) [place] % (Auto) Lymph # [place] # Baso # Seg Neutrophils % Seg Neuts % (Manual) Lymphocytes % (Manual) Monocytes % (Manual) Eosinophils % (Manual) Basophils % (Manual) Nucleated RBC % Seg Neutrophils # Seg Neutrophils # Man Lymphocytes # (Manual) Monocytes # (Manual) Eosinophils # (Manual) Basophils # (Manual) PT INR Fibrinogen dRVVT Confirm Interp Factor V Activity POC ABG pH POC ABG pCO2 POC ABG pO2 ABG pO2 ABG HCO3 ABG Base Excess ABG Hemoglobin Oxyhemoglobin Sodium Potassium Chloride Carbon Dioxide BUN 52 H Creatinine 1.3 H Glucose 113 H POC Glucose 123 H 118 H Lactic Acid Calcium Ionized Calcium Phosphorus 2.40 L Magnesium Direct Bilirubin AST ALT Alkaline Phosphatase Lactate Dehydrogenase Troponin T C-Reactive Protein Total Protein Albumin Prealbumin Triglycerides Cholesterol LDL Cholesterol Direct HDL Cholesterol 25-OH Vitamin D Total PTH Intact Urine pH Urine WBC (Auto) Urine Creatinine Urine Total Protein Fluid Total Protein Vancomycin Trough Rheumatoid Factor Complement C4 Miscellaneous Test Crossmatch 01/05/17 01/05/17 01/05/17 11:41 17:48 23:27 WBC RBC Hgb Hct MCV MCH MCHC RDW Plt Count Lymph % (Auto) [place] % (Auto) Lymph # [place] # Baso # Seg Neutrophils % Seg Neuts % (Manual) Lymphocytes % (Manual) Monocytes % (Manual) Eosinophils % (Manual) Basophils % (Manual) Nucleated RBC % Seg Neutrophils # Seg Neutrophils # Man Lymphocytes # (Manual) Monocytes # (Manual) Eosinophils # (Manual) Basophils # (Manual) PT INR Fibrinogen dRVVT Confirm Interp Factor V Activity POC ABG pH POC ABG pCO2 POC ABG pO2 ABG pO2 ABG HCO3 ABG Base Excess ABG Hemoglobin Oxyhemoglobin Sodium Potassium Chloride Carbon Dioxide BUN Creatinine Glucose POC Glucose 163 H 142 H 155 H Lactic Acid Calcium Ionized Calcium Phosphorus Magnesium Direct Bilirubin AST ALT Alkaline Phosphatase Lactate Dehydrogenase Troponin T C-Reactive Protein Total Protein Albumin Prealbumin Triglycerides Cholesterol LDL Cholesterol Direct HDL Cholesterol 25-OH Vitamin D Total PTH Intact Urine pH Urine WBC (Auto) Urine Creatinine Urine Total Protein Fluid Total Protein Vancomycin Trough Rheumatoid Factor Complement C4 Miscellaneous Test Crossmatch 01/06/17 01/06/17 01/06/17 05:20 07:35 11:18 WBC RBC Hgb Hct MCV MCH MCHC RDW Plt Count Lymph % (Auto) [place] % (Auto) Lymph # [place] # Baso # Seg Neutrophils % Seg Neuts % (Manual) Lymphocytes % (Manual) Monocytes % (Manual) Eosinophils % (Manual) Basophils % (Manual) Nucleated RBC % Seg Neutrophils # Seg Neutrophils # Man Lymphocytes # (Manual) Monocytes # (Manual) Eosinophils # (Manual) Basophils # (Manual) PT INR Fibrinogen dRVVT Confirm Interp Factor V Activity POC ABG pH POC ABG pCO2 POC ABG pO2 ABG pO2 ABG HCO3 ABG Base Excess ABG Hemoglobin Oxyhemoglobin Sodium Potassium Chloride Carbon Dioxide BUN 74 H Creatinine 1.6 H Glucose 135 H POC Glucose 108 H 149 H Lactic Acid Calcium Ionized Calcium Phosphorus Magnesium Direct Bilirubin AST ALT Alkaline Phosphatase Lactate Dehydrogenase Troponin T C-Reactive Protein Total Protein Albumin Prealbumin Triglycerides Cholesterol LDL Cholesterol Direct HDL Cholesterol 25-OH Vitamin D Total PTH Intact Urine pH Urine WBC (Auto) Urine Creatinine Urine Total Protein Fluid Total Protein Vancomycin Trough Rheumatoid Factor Complement C4 Miscellaneous Test Crossmatch 01/06/17 01/07/17 01/07/17 17:17 00:23 05:31 WBC RBC Hgb Hct MCV MCH MCHC RDW Plt Count Lymph % (Auto) [place] % (Auto) Lymph # [place] # Baso # Seg Neutrophils % Seg Neuts % (Manual) Lymphocytes % (Manual) Monocytes % (Manual) Eosinophils % (Manual) Basophils % (Manual) Nucleated RBC % Seg Neutrophils # Seg Neutrophils # Man Lymphocytes # (Manual) Monocytes # (Manual) Eosinophils # (Manual) Basophils # (Manual) PT INR Fibrinogen dRVVT Confirm Interp Factor V Activity POC ABG pH POC ABG pCO2 POC ABG pO2 ABG pO2 ABG HCO3 ABG Base Excess ABG Hemoglobin Oxyhemoglobin Sodium Potassium Chloride Carbon Dioxide BUN Creatinine Glucose POC Glucose 146 H 165 H 153 H Lactic Acid Calcium Ionized Calcium Phosphorus Magnesium Direct Bilirubin AST ALT Alkaline Phosphatase Lactate Dehydrogenase Troponin T C-Reactive Protein Total Protein Albumin Prealbumin Triglycerides Cholesterol LDL Cholesterol Direct HDL Cholesterol 25-OH Vitamin D Total PTH Intact Urine pH Urine WBC (Auto) Urine Creatinine Urine Total Protein Fluid Total Protein Vancomycin Trough Rheumatoid Factor Complement C4 Miscellaneous Test Crossmatch 01/07/17 01/07/17 01/07/17 06:00 11:39 17:11 WBC RBC Hgb Hct MCV MCH MCHC RDW Plt Count Lymph % (Auto) [place] % (Auto) Lymph # [place] # Baso # Seg Neutrophils % Seg Neuts % (Manual) Lymphocytes % (Manual) Monocytes % (Manual) Eosinophils % (Manual) Basophils % (Manual) Nucleated RBC % Seg Neutrophils # Seg Neutrophils # Man Lymphocytes # (Manual) Monocytes # (Manual) Eosinophils # (Manual) Basophils # (Manual) PT INR Fibrinogen dRVVT Confirm Interp Factor V Activity POC ABG pH POC ABG pCO2 POC ABG pO2 ABG pO2 ABG HCO3 ABG Base Excess ABG Hemoglobin Oxyhemoglobin Sodium Potassium Chloride Carbon Dioxide BUN 42 H Creatinine Glucose 175 H POC Glucose 163 H 163 H Lactic Acid Calcium Ionized Calcium Phosphorus 2.40 L D Magnesium Direct Bilirubin AST ALT Alkaline Phosphatase Lactate Dehydrogenase Troponin T C-Reactive Protein Total Protein Albumin Prealbumin Triglycerides Cholesterol LDL Cholesterol Direct HDL Cholesterol 25-OH Vitamin D Total PTH Intact Urine pH Urine WBC (Auto) Urine Creatinine Urine Total Protein Fluid Total Protein Vancomycin Trough Rheumatoid Factor Complement C4 Miscellaneous Test Crossmatch 01/07/17 01/08/17 01/08/17 23:40 05:00 05:00 WBC 27.4 H RBC 2.27 L Hgb 6.1 L Hct 20.4 L MCV MCH 27 L MCHC RDW 17.8 H Plt Count Lymph % (Auto) [place] % (Auto) Lymph # [place] # Baso # Seg Neutrophils % Seg Neuts % (Manual) Lymphocytes % (Manual) Monocytes % (Manual) Eosinophils % (Manual) Basophils % (Manual) Nucleated RBC % Seg Neutrophils # Seg Neutrophils # Man Lymphocytes # (Manual) Monocytes # (Manual) Eosinophils # (Manual) Basophils # (Manual) PT INR Fibrinogen dRVVT Confirm Interp Factor V Activity POC ABG pH POC ABG pCO2 POC ABG pO2 ABG pO2 ABG HCO3 ABG Base Excess ABG Hemoglobin Oxyhemoglobin Sodium Potassium Chloride Carbon Dioxide 16 L D BUN 62 H Creatinine 1.6 H D Glucose 103 H POC Glucose 135 H Lactic Acid Calcium Ionized Calcium Phosphorus Magnesium Direct Bilirubin AST ALT Alkaline Phosphatase Lactate Dehydrogenase Troponin T C-Reactive Protein Total Protein Albumin Prealbumin Triglycerides Cholesterol LDL Cholesterol Direct HDL Cholesterol 25-OH Vitamin D Total PTH Intact Urine pH Urine WBC (Auto) Urine Creatinine Urine Total Protein Fluid Total Protein Vancomycin Trough Rheumatoid Factor Complement C4 Miscellaneous Test Crossmatch 01/08/17 01/08/17 01/08/17 05:25 10:37 10:37 WBC RBC Hgb Hct MCV MCH MCHC RDW Plt Count Lymph % (Auto) [place] % (Auto) Lymph # [place] # Baso # Seg Neutrophils % Seg Neuts % (Manual) Lymphocytes % (Manual) Monocytes % (Manual) Eosinophils % (Manual) Basophils % (Manual) Nucleated RBC % Seg Neutrophils # Seg Neutrophils # Man Lymphocytes # (Manual) Monocytes # (Manual) Eosinophils # (Manual) Basophils # (Manual) PT INR Fibrinogen dRVVT Confirm Interp Factor V Activity POC ABG pH POC ABG pCO2 POC ABG pO2 ABG pO2 ABG HCO3 ABG Base Excess ABG Hemoglobin Oxyhemoglobin Sodium Potassium Chloride Carbon Dioxide BUN Creatinine Glucose POC Glucose 106 H Lactic Acid Calcium Ionized Calcium Phosphorus Magnesium Direct Bilirubin AST ALT Alkaline Phosphatase Lactate Dehydrogenase Troponin T C-Reactive Protein 24.40 H Total Protein Albumin Prealbumin Triglycerides Cholesterol LDL Cholesterol Direct HDL Cholesterol 25-OH Vitamin D Total PTH Intact Urine pH Urine WBC (Auto) Urine Creatinine Urine Total Protein Fluid Total Protein Vancomycin Trough Rheumatoid Factor Complement C4 Miscellaneous Test Crossmatch See Detail 01/08/17 01/08/17 01/08/17 10:37 11:33 15:15 WBC RBC Hgb Hct MCV MCH MCHC RDW Plt Count Lymph % (Auto) [place] % (Auto) Lymph # [place] # Baso # Seg Neutrophils % Seg Neuts % (Manual) Lymphocytes % (Manual) Monocytes % (Manual) Eosinophils % (Manual) Basophils % (Manual) Nucleated RBC % Seg Neutrophils # Seg Neutrophils # Man Lymphocytes # (Manual) Monocytes # (Manual) Eosinophils # (Manual) Basophils # (Manual) PT INR Fibrinogen dRVVT Confirm Interp Factor V Activity POC ABG pH POC ABG pCO2 POC ABG pO2 ABG pO2 ABG HCO3 ABG Base Excess ABG Hemoglobin Oxyhemoglobin Sodium Potassium Chloride Carbon Dioxide BUN Creatinine Glucose POC Glucose 157 H Lactic Acid 9.70 H* 9.10 H* Calcium Ionized Calcium Phosphorus Magnesium Direct Bilirubin AST ALT Alkaline Phosphatase Lactate Dehydrogenase Troponin T C-Reactive Protein Total Protein Albumin Prealbumin Triglycerides Cholesterol LDL Cholesterol Direct HDL Cholesterol 25-OH Vitamin D Total PTH Intact Urine pH Urine WBC (Auto) Urine Creatinine Urine Total Protein Fluid Total Protein Vancomycin Trough Rheumatoid Factor Complement C4 Miscellaneous Test Crossmatch 01/08/17 01/08/17 01/09/17 17:19 23:12 04:40 WBC RBC Hgb Hct MCV MCH MCHC RDW Plt Count Lymph % (Auto) [place] % (Auto) Lymph # [place] # Baso # Seg Neutrophils % Seg Neuts % (Manual) Lymphocytes % (Manual) Monocytes % (Manual) Eosinophils % (Manual) Basophils % (Manual) Nucleated RBC % Seg Neutrophils # Seg Neutrophils # Man Lymphocytes # (Manual) Monocytes # (Manual) Eosinophils # (Manual) Basophils # (Manual) PT INR Fibrinogen dRVVT Confirm Interp Factor V Activity POC ABG pH POC ABG pCO2 POC ABG pO2 ABG pO2 ABG HCO3 ABG Base Excess ABG Hemoglobin Oxyhemoglobin Sodium 147 H Potassium Chloride Carbon Dioxide BUN 82 H Creatinine 1.8 H Glucose 137 H POC Glucose 164 H 157 H Lactic Acid Calcium Ionized Calcium Phosphorus Magnesium Direct Bilirubin AST ALT Alkaline Phosphatase Lactate Dehydrogenase Troponin T C-Reactive Protein Total Protein Albumin Prealbumin Triglycerides Cholesterol LDL Cholesterol Direct HDL Cholesterol 25-OH Vitamin D Total PTH Intact Urine pH Urine WBC (Auto) Urine Creatinine Urine Total Protein Fluid Total Protein Vancomycin Trough Rheumatoid Factor Complement C4 Miscellaneous Test Crossmatch 01/09/17 01/09/17 01/09/17 05:42 08:22 10:57 WBC RBC Hgb Hct MCV MCH MCHC RDW Plt Count Lymph % (Auto) [place] % (Auto) Lymph # [place] # Baso # Seg Neutrophils % Seg Neuts % (Manual) Lymphocytes % (Manual) Monocytes % (Manual) Eosinophils % (Manual) Basophils % (Manual) Nucleated RBC % Seg Neutrophils # Seg Neutrophils # Man Lymphocytes # (Manual) Monocytes # (Manual) Eosinophils # (Manual) Basophils # (Manual) PT INR Fibrinogen dRVVT Confirm Interp Factor V Activity POC ABG pH POC ABG pCO2 POC ABG pO2 ABG pO2 ABG HCO3 ABG Base Excess ABG Hemoglobin Oxyhemoglobin Sodium Potassium Chloride Carbon Dioxide BUN Creatinine Glucose POC Glucose 156 H 122 H Lactic Acid 2.30 H* Calcium Ionized Calcium Phosphorus Magnesium Direct Bilirubin AST ALT Alkaline Phosphatase Lactate Dehydrogenase Troponin T C-Reactive Protein Total Protein Albumin Prealbumin Triglycerides Cholesterol LDL Cholesterol Direct HDL Cholesterol 25-OH Vitamin D Total PTH Intact Urine pH Urine WBC (Auto) Urine Creatinine Urine Total Protein Fluid Total Protein Vancomycin Trough Rheumatoid Factor Complement C4 Miscellaneous Test Crossmatch 01/09/17 01/09/17 01/09/17 13:30 17:14 18:45 WBC RBC Hgb Hct MCV MCH MCHC RDW Plt Count Lymph % (Auto) [place] % (Auto) Lymph # [place] # Baso # Seg Neutrophils % Seg Neuts % (Manual) Lymphocytes % (Manual) Monocytes % (Manual) Eosinophils % (Manual) Basophils % (Manual) Nucleated RBC % Seg Neutrophils # Seg Neutrophils # Man Lymphocytes # (Manual) Monocytes # (Manual) Eosinophils # (Manual) Basophils # (Manual) PT INR Fibrinogen dRVVT Confirm Interp Factor V Activity POC ABG pH POC ABG pCO2 POC ABG pO2 ABG pO2 ABG HCO3 ABG Base Excess ABG Hemoglobin Oxyhemoglobin Sodium Potassium Chloride Carbon Dioxide BUN Creatinine Glucose POC Glucose 127 H Lactic Acid Calcium Ionized Calcium Phosphorus Magnesium Direct Bilirubin AST ALT Alkaline Phosphatase Lactate Dehydrogenase Troponin T C-Reactive Protein 24.70 H Total Protein Albumin Prealbumin Triglycerides Cholesterol LDL Cholesterol Direct HDL Cholesterol 25-OH Vitamin D Total PTH Intact Urine pH Urine WBC (Auto) Urine Creatinine Urine Total Protein Fluid Total Protein Vancomycin Trough Rheumatoid Factor Complement C4 Miscellaneous Test Flexitest 1 H Crossmatch 01/10/17 01/10/17 01/10/17 01:21 04:00 04:00 WBC 18.1 H RBC 3.22 L Hgb 8.8 L Hct 27.0 L D MCV MCH 27 L MCHC RDW 17.0 H Plt Count Lymph % (Auto) [place] % (Auto) Lymph # [place] # Baso # Seg Neutrophils % Seg Neuts % (Manual) Lymphocytes % (Manual) Monocytes % (Manual) Eosinophils % (Manual) Basophils % (Manual) Nucleated RBC % Seg Neutrophils # Seg Neutrophils # Man Lymphocytes # (Manual) Monocytes # (Manual) Eosinophils # (Manual) Basophils # (Manual) PT INR Fibrinogen dRVVT Confirm Interp Factor V Activity POC ABG pH POC ABG pCO2 POC ABG pO2 ABG pO2 ABG HCO3 ABG Base Excess ABG Hemoglobin Oxyhemoglobin Sodium Potassium Chloride Carbon Dioxide BUN 59 H Creatinine 1.3 H Glucose 122 H POC Glucose 160 H Lactic Acid Calcium Ionized Calcium Phosphorus Magnesium Direct Bilirubin AST ALT Alkaline Phosphatase Lactate Dehydrogenase Troponin T C-Reactive Protein Total Protein Albumin Prealbumin Triglycerides Cholesterol LDL Cholesterol Direct HDL Cholesterol 25-OH Vitamin D Total PTH Intact Urine pH Urine WBC (Auto) Urine Creatinine Urine Total Protein Fluid Total Protein Vancomycin Trough Rheumatoid Factor Complement C4 Miscellaneous Test Crossmatch 01/10/17 01/10/17 01/10/17 05:36 12:14 17:55 WBC RBC Hgb Hct MCV MCH MCHC RDW Plt Count Lymph % (Auto) [place] % (Auto) Lymph # [place] # Baso # Seg Neutrophils % Seg Neuts % (Manual) Lymphocytes % (Manual) Monocytes % (Manual) Eosinophils % (Manual) Basophils % (Manual) Nucleated RBC % Seg Neutrophils # Seg Neutrophils # Man Lymphocytes # (Manual) Monocytes # (Manual) Eosinophils # (Manual) Basophils # (Manual) PT INR Fibrinogen dRVVT Confirm Interp Factor V Activity POC ABG pH POC ABG pCO2 POC ABG pO2 ABG pO2 ABG HCO3 ABG Base Excess ABG Hemoglobin Oxyhemoglobin Sodium Potassium Chloride Carbon Dioxide BUN Creatinine Glucose POC Glucose 163 H 120 H 144 H Lactic Acid Calcium Ionized Calcium Phosphorus Magnesium Direct Bilirubin AST ALT Alkaline Phosphatase Lactate Dehydrogenase Troponin T C-Reactive Protein Total Protein Albumin Prealbumin Triglycerides Cholesterol LDL Cholesterol Direct HDL Cholesterol 25-OH Vitamin D Total PTH Intact Urine pH Urine WBC (Auto) Urine Creatinine Urine Total Protein Fluid Total Protein Vancomycin Trough Rheumatoid Factor Complement C4 Miscellaneous Test Crossmatch 01/11/17 01/11/17 01/11/17 00:09 04:00 04:00 WBC 15.8 H RBC 3.04 L Hgb 8.2 L Hct 25.5 L MCV MCH 27 L MCHC RDW 17.3 H Plt Count Lymph % (Auto) [place] % (Auto) Lymph # [place] # Baso # Seg Neutrophils % Seg Neuts % (Manual) Lymphocytes % (Manual) Monocytes % (Manual) Eosinophils % (Manual) Basophils % (Manual) Nucleated RBC % Seg Neutrophils # Seg Neutrophils # Man Lymphocytes # (Manual) Monocytes # (Manual) Eosinophils # (Manual) Basophils # (Manual) PT INR Fibrinogen dRVVT Confirm Interp Factor V Activity POC ABG pH POC ABG pCO2 POC ABG pO2 ABG pO2 ABG HCO3 ABG Base Excess ABG Hemoglobin Oxyhemoglobin Sodium Potassium Chloride Carbon Dioxide BUN 78 H Creatinine 1.6 H Glucose 109 H POC Glucose 122 H Lactic Acid Calcium Ionized Calcium Phosphorus Magnesium Direct Bilirubin AST ALT Alkaline Phosphatase Lactate Dehydrogenase Troponin T C-Reactive Protein Total Protein Albumin Prealbumin Triglycerides Cholesterol LDL Cholesterol Direct HDL Cholesterol 25-OH Vitamin D Total PTH Intact Urine pH Urine WBC (Auto) Urine Creatinine Urine Total Protein Fluid Total Protein Vancomycin Trough Rheumatoid Factor Complement C4 Miscellaneous Test Crossmatch 01/11/17 01/11/17 01/11/17 12:46 18:23 23:42 WBC RBC Hgb Hct MCV MCH MCHC RDW Plt Count Lymph % (Auto) [place] % (Auto) Lymph # [place] # Baso # Seg Neutrophils % Seg Neuts % (Manual) Lymphocytes % (Manual) Monocytes % (Manual) Eosinophils % (Manual) Basophils % (Manual) Nucleated RBC % Seg Neutrophils # Seg Neutrophils # Man Lymphocytes # (Manual) Monocytes # (Manual) Eosinophils # (Manual) Basophils # (Manual) PT INR Fibrinogen dRVVT Confirm Interp Factor V Activity POC ABG pH POC ABG pCO2 POC ABG pO2 ABG pO2 ABG HCO3 ABG Base Excess ABG Hemoglobin Oxyhemoglobin Sodium Potassium Chloride Carbon Dioxide BUN Creatinine Glucose POC Glucose 148 H 125 H 124 H Lactic Acid Calcium Ionized Calcium Phosphorus Magnesium Direct Bilirubin AST ALT Alkaline Phosphatase Lactate Dehydrogenase Troponin T C-Reactive Protein Total Protein Albumin Prealbumin Triglycerides Cholesterol LDL Cholesterol Direct HDL Cholesterol 25-OH Vitamin D Total PTH Intact Urine pH Urine WBC (Auto) Urine Creatinine Urine Total Protein Fluid Total Protein Vancomycin Trough Rheumatoid Factor Complement C4 Miscellaneous Test Crossmatch 01/12/17 01/12/17 01/12/17 04:30 04:30 05:47 WBC 15.8 H RBC 3.31 L Hgb 8.9 L Hct 27.9 L MCV MCH 27 L MCHC RDW 17.4 H Plt Count Lymph % (Auto) [place] % (Auto) Lymph # [place] # Baso # Seg Neutrophils % Seg Neuts % (Manual) Lymphocytes % (Manual) Monocytes % (Manual) Eosinophils % (Manual) Basophils % (Manual) Nucleated RBC % Seg Neutrophils # Seg Neutrophils # Man Lymphocytes # (Manual) Monocytes # (Manual) Eosinophils # (Manual) Basophils # (Manual) PT INR Fibrinogen dRVVT Confirm Interp Factor V Activity POC ABG pH POC ABG pCO2 POC ABG pO2 ABG pO2 ABG HCO3 ABG Base Excess ABG Hemoglobin Oxyhemoglobin Sodium Potassium Chloride Carbon Dioxide BUN 57 H Creatinine Glucose 121 H POC Glucose 110 H Lactic Acid Calcium Ionized Calcium Phosphorus 2.10 L Magnesium Direct Bilirubin AST ALT Alkaline Phosphatase Lactate Dehydrogenase Troponin T C-Reactive Protein Total Protein Albumin Prealbumin Triglycerides Cholesterol LDL Cholesterol Direct HDL Cholesterol 25-OH Vitamin D Total PTH Intact Urine pH Urine WBC (Auto) Urine Creatinine Urine Total Protein Fluid Total Protein Vancomycin Trough Rheumatoid Factor Complement C4 Miscellaneous Test Crossmatch 01/12/17 01/12/17 01/12/17 11:35 17:45 23:14 WBC RBC Hgb Hct MCV MCH MCHC RDW Plt Count Lymph % (Auto) [place] % (Auto) Lymph # [place] # Baso # Seg Neutrophils % Seg Neuts % (Manual) Lymphocytes % (Manual) Monocytes % (Manual) Eosinophils % (Manual) Basophils % (Manual) Nucleated RBC % Seg Neutrophils # Seg Neutrophils # Man Lymphocytes # (Manual) Monocytes # (Manual) Eosinophils # (Manual) Basophils # (Manual) PT INR Fibrinogen dRVVT Confirm Interp Factor V Activity POC ABG pH POC ABG pCO2 POC ABG pO2 ABG pO2 ABG HCO3 ABG Base Excess ABG Hemoglobin Oxyhemoglobin Sodium Potassium Chloride Carbon Dioxide BUN Creatinine Glucose POC Glucose 146 H 117 H 123 H Lactic Acid Calcium Ionized Calcium Phosphorus Magnesium Direct Bilirubin AST ALT Alkaline Phosphatase Lactate Dehydrogenase Troponin T C-Reactive Protein Total Protein Albumin Prealbumin Triglycerides Cholesterol LDL Cholesterol Direct HDL Cholesterol 25-OH Vitamin D Total PTH Intact Urine pH Urine WBC (Auto) Urine Creatinine Urine Total Protein Fluid Total Protein Vancomycin Trough Rheumatoid Factor Complement C4 Miscellaneous Test Crossmatch 01/13/17 01/13/17 01/13/17 05:32 06:00 12:10 WBC RBC Hgb Hct MCV MCH MCHC RDW Plt Count Lymph % (Auto) [place] % (Auto) Lymph # [place] # Baso # Seg Neutrophils % Seg Neuts % (Manual) Lymphocytes % (Manual) Monocytes % (Manual) Eosinophils % (Manual) Basophils % (Manual) Nucleated RBC % Seg Neutrophils # Seg Neutrophils # Man Lymphocytes # (Manual) Monocytes # (Manual) Eosinophils # (Manual) Basophils # (Manual) PT INR Fibrinogen dRVVT Confirm Interp Factor V Activity POC ABG pH POC ABG pCO2 POC ABG pO2 ABG pO2 ABG HCO3 ABG Base Excess ABG Hemoglobin Oxyhemoglobin Sodium Potassium Chloride Carbon Dioxide BUN 80 H Creatinine 1.4 H Glucose 106 H POC Glucose 106 H Lactic Acid Calcium Ionized Calcium Phosphorus Magnesium Direct Bilirubin AST ALT Alkaline Phosphatase Lactate Dehydrogenase Troponin T C-Reactive Protein Total Protein Albumin Prealbumin Triglycerides Cholesterol LDL Cholesterol Direct HDL Cholesterol 25-OH Vitamin D Total PTH Intact Urine pH Urine WBC (Auto) Urine Creatinine Urine Total Protein Fluid Total Protein 3.0 L Vancomycin Trough Rheumatoid Factor Complement C4 Miscellaneous Test Crossmatch 01/13/17 01/13/17 01/13/17 12:17 15:50 17:30 WBC RBC Hgb Hct MCV MCH MCHC RDW Plt Count Lymph % (Auto) [place] % (Auto) Lymph # [place] # Baso # Seg Neutrophils % Seg Neuts % (Manual) Lymphocytes % (Manual) Monocytes % (Manual) Eosinophils % (Manual) Basophils % (Manual) Nucleated RBC % Seg Neutrophils # Seg Neutrophils # Man Lymphocytes # (Manual) Monocytes # (Manual) Eosinophils # (Manual) Basophils # (Manual) PT 15.4 H INR 1.16 H Fibrinogen dRVVT Confirm Interp Factor V Activity POC ABG pH POC ABG pCO2 POC ABG pO2 ABG pO2 ABG HCO3 ABG Base Excess ABG Hemoglobin Oxyhemoglobin Sodium Potassium Chloride Carbon Dioxide BUN Creatinine Glucose POC Glucose 168 H 110 H Lactic Acid Calcium Ionized Calcium Phosphorus Magnesium Direct Bilirubin AST ALT Alkaline Phosphatase Lactate Dehydrogenase Troponin T C-Reactive Protein Total Protein Albumin Prealbumin Triglycerides Cholesterol LDL Cholesterol Direct HDL Cholesterol 25-OH Vitamin D Total PTH Intact Urine pH Urine WBC (Auto) Urine Creatinine Urine Total Protein Fluid Total Protein Vancomycin Trough Rheumatoid Factor Complement C4 Miscellaneous Test Crossmatch 01/13/17 01/14/17 01/14/17 23:42 05:24 05:30 WBC RBC Hgb Hct MCV MCH MCHC RDW Plt Count Lymph % (Auto) [place] % (Auto) Lymph # [place] # Baso # Seg Neutrophils % Seg Neuts % (Manual) Lymphocytes % (Manual) Monocytes % (Manual) Eosinophils % (Manual) Basophils % (Manual) Nucleated RBC % Seg Neutrophils # Seg Neutrophils # Man Lymphocytes # (Manual) Monocytes # (Manual) Eosinophils # (Manual) Basophils # (Manual) PT INR Fibrinogen dRVVT Confirm Interp Factor V Activity POC ABG pH POC ABG pCO2 POC ABG pO2 ABG pO2 ABG HCO3 ABG Base Excess ABG Hemoglobin Oxyhemoglobin Sodium Potassium Chloride Carbon Dioxide BUN 58 H Creatinine Glucose 114 H POC Glucose 155 H 121 H Lactic Acid Calcium Ionized Calcium Phosphorus Magnesium Direct Bilirubin AST ALT Alkaline Phosphatase Lactate Dehydrogenase Troponin T C-Reactive Protein Total Protein Albumin Prealbumin Triglycerides Cholesterol LDL Cholesterol Direct HDL Cholesterol 25-OH Vitamin D Total PTH Intact Urine pH Urine WBC (Auto) Urine Creatinine Urine Total Protein Fluid Total Protein Vancomycin Trough Rheumatoid Factor Complement C4 Miscellaneous Test Crossmatch 01/14/17 01/14/17 01/15/17 12:48 17:36 00:15 WBC RBC Hgb Hct MCV MCH MCHC RDW Plt Count Lymph % (Auto) [place] % (Auto) Lymph # [place] # Baso # Seg Neutrophils % Seg Neuts % (Manual) Lymphocytes % (Manual) Monocytes % (Manual) Eosinophils % (Manual) Basophils % (Manual) Nucleated RBC % Seg Neutrophils # Seg Neutrophils # Man Lymphocytes # (Manual) Monocytes # (Manual) Eosinophils # (Manual) Basophils # (Manual) PT INR Fibrinogen dRVVT Confirm Interp Factor V Activity POC ABG pH POC ABG pCO2 POC ABG pO2 ABG pO2 ABG HCO3 ABG Base Excess ABG Hemoglobin Oxyhemoglobin Sodium Potassium Chloride Carbon Dioxide BUN Creatinine Glucose POC Glucose 130 H 135 H 132 H Lactic Acid Calcium Ionized Calcium Phosphorus Magnesium Direct Bilirubin AST ALT Alkaline Phosphatase Lactate Dehydrogenase Troponin T C-Reactive Protein Total Protein Albumin Prealbumin Triglycerides Cholesterol LDL Cholesterol Direct HDL Cholesterol 25-OH Vitamin D Total PTH Intact Urine pH Urine WBC (Auto) Urine Creatinine Urine Total Protein Fluid Total Protein Vancomycin Trough Rheumatoid Factor Complement C4 Miscellaneous Test Crossmatch 01/15/17 01/15/17 01/15/17 05:01 11:55 12:45 WBC 16.2 H RBC 3.00 L Hgb 8.1 L Hct 25.4 L MCV MCH 27 L MCHC RDW 17.6 H Plt Count Lymph % (Auto) 11.[address] [place] % (Auto) 7.8 H Lymph # [place] # 1.3 H Baso # Seg Neutrophils % 80.1 H Seg Neuts % (Manual) Lymphocytes % (Manual) Monocytes % (Manual) Eosinophils % (Manual) Basophils % (Manual) Nucleated RBC % Seg Neutrophils # 13.0 H Seg Neutrophils # Man Lymphocytes # (Manual) Monocytes # (Manual) Eosinophils # (Manual) Basophils # (Manual) PT INR Fibrinogen dRVVT Confirm Interp Factor V Activity POC ABG pH POC ABG pCO2 POC ABG pO2 ABG pO2 ABG HCO3 ABG Base Excess ABG Hemoglobin Oxyhemoglobin Sodium Potassium Chloride Carbon Dioxide BUN Creatinine Glucose POC Glucose 126 H 125 H Lactic Acid Calcium Ionized Calcium Phosphorus Magnesium Direct Bilirubin AST ALT Alkaline Phosphatase Lactate Dehydrogenase Troponin T C-Reactive Protein Total Protein Albumin Prealbumin Triglycerides Cholesterol LDL Cholesterol Direct HDL Cholesterol 25-OH Vitamin D Total PTH Intact Urine pH Urine WBC (Auto) Urine Creatinine Urine Total Protein Fluid Total Protein Vancomycin Trough Rheumatoid Factor Complement C4 Miscellaneous Test Crossmatch 01/15/17 01/15/17 01/15/17 12:45 17:31 23:39 WBC RBC Hgb Hct MCV MCH MCHC RDW Plt Count Lymph % (Auto) [place] % (Auto) Lymph # [place] # Baso # Seg Neutrophils % Seg Neuts % (Manual) Lymphocytes % (Manual) Monocytes % (Manual) Eosinophils % (Manual) Basophils % (Manual) Nucleated RBC % Seg Neutrophils # Seg Neutrophils # Man Lymphocytes # (Manual) Monocytes # (Manual) Eosinophils # (Manual) Basophils # (Manual) PT INR Fibrinogen dRVVT Confirm Interp Factor V Activity POC ABG pH POC ABG pCO2 POC ABG pO2 ABG pO2 ABG HCO3 ABG Base Excess ABG Hemoglobin Oxyhemoglobin Sodium 136 L Potassium Chloride Carbon Dioxide BUN 87 H Creatinine 1.7 H Glucose 108 H POC Glucose 129 H 112 H Lactic Acid Calcium Ionized Calcium Phosphorus Magnesium Direct Bilirubin AST ALT Alkaline Phosphatase Lactate Dehydrogenase Troponin T C-Reactive Protein Total Protein Albumin Prealbumin Triglycerides Cholesterol LDL Cholesterol Direct HDL Cholesterol 25-OH Vitamin D Total PTH Intact Urine pH Urine WBC (Auto) Urine Creatinine Urine Total Protein Fluid Total Protein Vancomycin Trough Rheumatoid Factor Complement C4 Miscellaneous Test Crossmatch 01/16/17 01/16/17 01/16/17 05:23 11:42 12:32 WBC RBC Hgb Hct MCV MCH MCHC RDW Plt Count Lymph % (Auto) [place] % (Auto) Lymph # [place] # Baso # Seg Neutrophils % Seg Neuts % (Manual) Lymphocytes % (Manual) Monocytes % (Manual) Eosinophils % (Manual) Basophils % (Manual) Nucleated RBC % Seg Neutrophils # Seg Neutrophils # Man Lymphocytes # (Manual) Monocytes # (Manual) Eosinophils # (Manual) Basophils # (Manual) PT INR Fibrinogen dRVVT Confirm Interp Factor V Activity POC ABG pH 7.499 H POC ABG pCO2 30.9 L POC ABG pO2 51 L ABG pO2 ABG HCO3 ABG Base Excess ABG Hemoglobin Oxyhemoglobin Sodium Potassium Chloride Carbon Dioxide BUN Creatinine Glucose POC Glucose 118 H 133 H Lactic Acid Calcium Ionized Calcium Phosphorus Magnesium Direct Bilirubin AST ALT Alkaline Phosphatase Lactate Dehydrogenase Troponin T C-Reactive Protein Total Protein Albumin Prealbumin Triglycerides Cholesterol LDL Cholesterol Direct HDL Cholesterol 25-OH Vitamin D Total PTH Intact Urine pH Urine WBC (Auto) Urine Creatinine Urine Total Protein Fluid Total Protein Vancomycin Trough Rheumatoid Factor Complement C4 Miscellaneous Test Crossmatch 01/16/17 01/16/17 01/16/17 17:52 23:57 Unknown WBC RBC Hgb Hct MCV MCH MCHC RDW Plt Count Lymph % (Auto) [place] % (Auto) Lymph # [place] # Baso # Seg Neutrophils % Seg Neuts % (Manual) Lymphocytes % (Manual) Monocytes % (Manual) Eosinophils % (Manual) Basophils % (Manual) Nucleated RBC % Seg Neutrophils # Seg Neutrophils # Man Lymphocytes # (Manual) Monocytes # (Manual) Eosinophils # (Manual) Basophils # (Manual) PT INR Fibrinogen dRVVT Confirm Interp Factor V Activity POC ABG pH POC ABG pCO2 POC ABG pO2 ABG pO2 ABG HCO3 ABG Base Excess ABG Hemoglobin Oxyhemoglobin Sodium 135 L Potassium Chloride Carbon Dioxide BUN 101 H Creatinine 1.8 H Glucose 117 H POC Glucose 130 H 143 H Lactic Acid Calcium Ionized Calcium Phosphorus 5.80 H Magnesium Direct Bilirubin AST ALT Alkaline Phosphatase Lactate Dehydrogenase Troponin T C-Reactive Protein Total Protein Albumin Prealbumin Triglycerides Cholesterol LDL Cholesterol Direct HDL Cholesterol 25-OH Vitamin D Total PTH Intact Urine pH Urine WBC (Auto) Urine Creatinine Urine Total Protein Fluid Total Protein Vancomycin Trough Rheumatoid Factor Complement C4 Miscellaneous Test Crossmatch 01/17/17 01/17/17 01/17/17 05:30 05:46 11:49 WBC RBC Hgb Hct MCV MCH MCHC RDW Plt Count Lymph % (Auto) [place] % (Auto) Lymph # [place] # Baso # Seg Neutrophils % Seg Neuts % (Manual) Lymphocytes % (Manual) Monocytes % (Manual) Eosinophils % (Manual) Basophils % (Manual) Nucleated RBC % Seg Neutrophils # Seg Neutrophils # Man Lymphocytes # (Manual) Monocytes # (Manual) Eosinophils # (Manual) Basophils # (Manual) PT INR Fibrinogen dRVVT Confirm Interp Factor V Activity POC ABG pH POC ABG pCO2 POC ABG pO2 ABG pO2 ABG HCO3 ABG Base Excess ABG Hemoglobin Oxyhemoglobin Sodium 134 L Potassium Chloride 95.8 L Carbon Dioxide BUN 66 H Creatinine 1.3 H Glucose 138 H POC Glucose 147 H 124 H Lactic Acid Calcium Ionized Calcium Phosphorus Magnesium Direct Bilirubin AST ALT Alkaline Phosphatase 254 H Lactate Dehydrogenase Troponin T C-Reactive Protein Total Protein Albumin 1.3 L Prealbumin Triglycerides Cholesterol LDL Cholesterol Direct HDL Cholesterol 25-OH Vitamin D Total PTH Intact Urine pH Urine WBC (Auto) Urine Creatinine Urine Total Protein Fluid Total Protein Vancomycin Trough Rheumatoid Factor Complement C4 Miscellaneous Test Crossmatch 01/17/17 01/17/17 01/18/17 17:30 23:41 05:15 WBC RBC Hgb Hct MCV MCH MCHC RDW Plt Count Lymph % (Auto) [place] % (Auto) Lymph # [place] # Baso # Seg Neutrophils % Seg Neuts % (Manual) Lymphocytes % (Manual) Monocytes % (Manual) Eosinophils % (Manual) Basophils % (Manual) Nucleated RBC % Seg Neutrophils # Seg Neutrophils # Man Lymphocytes # (Manual) Monocytes # (Manual) Eosinophils # (Manual) Basophils # (Manual) PT INR Fibrinogen dRVVT Confirm Interp Factor V Activity POC ABG pH POC ABG pCO2 POC ABG pO2 ABG pO2 ABG HCO3 ABG Base Excess ABG Hemoglobin Oxyhemoglobin Sodium Potassium Chloride Carbon Dioxide BUN 89 H Creatinine 1.7 H Glucose 118 H POC Glucose 137 H 119 H Lactic Acid Calcium Ionized Calcium Phosphorus Magnesium Direct Bilirubin AST ALT Alkaline Phosphatase Lactate Dehydrogenase Troponin T C-Reactive Protein Total Protein Albumin Prealbumin Triglycerides Cholesterol LDL Cholesterol Direct HDL Cholesterol 25-OH Vitamin D Total PTH Intact Urine pH Urine WBC (Auto) Urine Creatinine Urine Total Protein Fluid Total Protein Vancomycin Trough Rheumatoid Factor Complement C4 Miscellaneous Test Crossmatch 01/18/17 01/18/17 01/18/17 05:19 12:16 18:11 WBC RBC Hgb Hct MCV MCH MCHC RDW Plt Count Lymph % (Auto) [place] % (Auto) Lymph # [place] # Baso # Seg Neutrophils % Seg Neuts % (Manual) Lymphocytes % (Manual) Monocytes % (Manual) Eosinophils % (Manual) Basophils % (Manual) Nucleated RBC % Seg Neutrophils # Seg Neutrophils # Man Lymphocytes # (Manual) Monocytes # (Manual) Eosinophils # (Manual) Basophils # (Manual) PT INR Fibrinogen dRVVT Confirm Interp Factor V Activity POC ABG pH POC ABG pCO2 POC ABG pO2 ABG pO2 ABG HCO3 ABG Base Excess ABG Hemoglobin Oxyhemoglobin Sodium Potassium Chloride Carbon Dioxide BUN Creatinine Glucose POC Glucose 134 H 188 H 113 H Lactic Acid Calcium Ionized Calcium Phosphorus Magnesium Direct Bilirubin AST ALT Alkaline Phosphatase Lactate Dehydrogenase Troponin T C-Reactive Protein Total Protein Albumin Prealbumin Triglycerides Cholesterol LDL Cholesterol Direct HDL Cholesterol 25-OH Vitamin D Total PTH Intact Urine pH Urine WBC (Auto) Urine Creatinine Urine Total Protein Fluid Total Protein Vancomycin Trough Rheumatoid Factor Complement C4 Miscellaneous Test Crossmatch 01/19/17 01/19/17 01/19/17 00:00 05:30 05:36 WBC RBC Hgb Hct MCV MCH MCHC RDW Plt Count Lymph % (Auto) [place] % (Auto) Lymph # [place] # Baso # Seg Neutrophils % Seg Neuts % (Manual) Lymphocytes % (Manual) Monocytes % (Manual) Eosinophils % (Manual) Basophils % (Manual) Nucleated RBC % Seg Neutrophils # Seg Neutrophils # Man Lymphocytes # (Manual) Monocytes # (Manual) Eosinophils # (Manual) Basophils # (Manual) PT INR Fibrinogen dRVVT Confirm Interp Factor V Activity POC ABG pH POC ABG pCO2 POC ABG pO2 ABG pO2 ABG HCO3 ABG Base Excess ABG Hemoglobin Oxyhemoglobin Sodium Potassium Chloride Carbon Dioxide BUN 70 H Creatinine 1.5 H Glucose 121 H POC Glucose 137 H 155 H Lactic Acid Calcium Ionized Calcium Phosphorus 2.10 L D Magnesium Direct Bilirubin AST ALT Alkaline Phosphatase Lactate Dehydrogenase Troponin T C-Reactive Protein Total Protein Albumin Prealbumin Triglycerides Cholesterol LDL Cholesterol Direct HDL Cholesterol 25-OH Vitamin D Total PTH Intact Urine pH Urine WBC (Auto) Urine Creatinine Urine Total Protein Fluid Total Protein Vancomycin Trough Rheumatoid Factor Complement C4 Miscellaneous Test Crossmatch 01/19/17 01/19/17 01/19/17 11:59 15:32 17:57 WBC RBC Hgb Hct MCV MCH MCHC RDW Plt Count Lymph % (Auto) [place] % (Auto) Lymph # [place] # Baso # Seg Neutrophils % Seg Neuts % (Manual) Lymphocytes % (Manual) Monocytes % (Manual) Eosinophils % (Manual) Basophils % (Manual) Nucleated RBC % Seg Neutrophils # Seg Neutrophils # Man Lymphocytes # (Manual) Monocytes # (Manual) Eosinophils # (Manual) Basophils # (Manual) PT INR Fibrinogen dRVVT Confirm Interp Factor V Activity POC ABG pH POC ABG pCO2 33.1 L POC ABG pO2 76 L ABG pO2 ABG HCO3 ABG Base Excess ABG Hemoglobin Oxyhemoglobin Sodium Potassium Chloride Carbon Dioxide BUN Creatinine Glucose POC Glucose 156 H 129 H Lactic Acid Calcium Ionized Calcium Phosphorus Magnesium Direct Bilirubin AST ALT Alkaline Phosphatase Lactate Dehydrogenase Troponin T C-Reactive Protein Total Protein Albumin Prealbumin Triglycerides Cholesterol LDL Cholesterol Direct HDL Cholesterol 25-OH Vitamin D Total PTH Intact Urine pH Urine WBC (Auto) Urine Creatinine Urine Total Protein Fluid Total Protein Vancomycin Trough Rheumatoid Factor Complement C4 Miscellaneous Test Crossmatch 01/19/17 01/20/17 01/20/17 23:49 04:00 05:21 WBC RBC Hgb Hct MCV MCH MCHC RDW Plt Count Lymph % (Auto) [place] % (Auto) Lymph # [place] # Baso # Seg Neutrophils % Seg Neuts % (Manual) Lymphocytes % (Manual) Monocytes % (Manual) Eosinophils % (Manual) Basophils % (Manual) Nucleated RBC % Seg Neutrophils # Seg Neutrophils # Man Lymphocytes # (Manual) Monocytes # (Manual) Eosinophils # (Manual) Basophils # (Manual) PT INR Fibrinogen dRVVT Confirm Interp Factor V Activity POC ABG pH POC ABG pCO2 POC ABG pO2 ABG pO2 ABG HCO3 ABG Base Excess ABG Hemoglobin Oxyhemoglobin Sodium Potassium Chloride Carbon Dioxide BUN 96 H Creatinine 1.9 H Glucose 106 H POC Glucose 125 H 130 H Lactic Acid Calcium Ionized Calcium Phosphorus 2.40 L Magnesium Direct Bilirubin AST ALT Alkaline Phosphatase Lactate Dehydrogenase Troponin T C-Reactive Protein Total Protein Albumin Prealbumin Triglycerides Cholesterol LDL Cholesterol Direct HDL Cholesterol 25-OH Vitamin D Total PTH Intact Urine pH Urine WBC (Auto) Urine Creatinine Urine Total Protein Fluid Total Protein Vancomycin Trough Rheumatoid Factor Complement C4 Miscellaneous Test Crossmatch 01/20/17 01/20/17 01/20/17 11:58 12:17 17:26 WBC RBC Hgb Hct MCV MCH MCHC RDW Plt Count Lymph % (Auto) [place] % (Auto) Lymph # [place] # Baso # Seg Neutrophils % Seg Neuts % (Manual) Lymphocytes % (Manual) Monocytes % (Manual) Eosinophils % (Manual) Basophils % (Manual) Nucleated RBC % Seg Neutrophils # Seg Neutrophils # Man Lymphocytes # (Manual) Monocytes # (Manual) Eosinophils # (Manual) Basophils # (Manual) PT INR Fibrinogen dRVVT Confirm Interp Factor V Activity POC ABG pH POC ABG pCO2 POC ABG pO2 70 L ABG pO2 ABG HCO3 ABG Base Excess ABG Hemoglobin Oxyhemoglobin Sodium Potassium Chloride Carbon Dioxide BUN Creatinine Glucose POC Glucose 118 H 154 H Lactic Acid Calcium Ionized Calcium Phosphorus Magnesium Direct Bilirubin AST ALT Alkaline Phosphatase Lactate Dehydrogenase Troponin T C-Reactive Protein Total Protein Albumin Prealbumin Triglycerides Cholesterol LDL Cholesterol Direct HDL Cholesterol 25-OH Vitamin D Total PTH Intact Urine pH Urine WBC (Auto) Urine Creatinine Urine Total Protein Fluid Total Protein Vancomycin Trough Rheumatoid Factor Complement C4 Miscellaneous Test Crossmatch 01/21/17 01/21/17 01/21/17 04:00 04:56 11:46 WBC RBC Hgb Hct MCV MCH MCHC RDW Plt Count Lymph % (Auto) [place] % (Auto) Lymph # [place] # Baso # Seg Neutrophils % Seg Neuts % (Manual) Lymphocytes % (Manual) Monocytes % (Manual) Eosinophils % (Manual) Basophils % (Manual) Nucleated RBC % Seg Neutrophils # Seg Neutrophils # Man Lymphocytes # (Manual) Monocytes # (Manual) Eosinophils # (Manual) Basophils # (Manual) PT INR Fibrinogen dRVVT Confirm Interp Factor V Activity POC ABG pH POC ABG pCO2 POC ABG pO2 ABG pO2 ABG HCO3 ABG Base Excess ABG Hemoglobin Oxyhemoglobin Sodium Potassium 3.5 L Chloride 97.4 L Carbon Dioxide BUN 66 H Creatinine 1.4 H Glucose POC Glucose 116 H 106 H Lactic Acid Calcium Ionized Calcium Phosphorus 2.10 L Magnesium Direct Bilirubin AST ALT Alkaline Phosphatase Lactate Dehydrogenase Troponin T C-Reactive Protein Total Protein Albumin Prealbumin Triglycerides Cholesterol LDL Cholesterol Direct HDL Cholesterol 25-OH Vitamin D Total PTH Intact Urine pH Urine WBC (Auto) Urine Creatinine Urine Total Protein Fluid Total Protein Vancomycin Trough Rheumatoid Factor Complement C4 Miscellaneous Test Crossmatch 01/21/17 01/21/17 01/22/17 17:25 23:49 05:35 WBC RBC Hgb Hct MCV MCH MCHC RDW Plt Count Lymph % (Auto) [place] % (Auto) Lymph # [place] # Baso # Seg Neutrophils % Seg Neuts % (Manual) Lymphocytes % (Manual) Monocytes % (Manual) Eosinophils % (Manual) Basophils % (Manual) Nucleated RBC % Seg Neutrophils # Seg Neutrophils # Man Lymphocytes # (Manual) Monocytes # (Manual) Eosinophils # (Manual) Basophils # (Manual) PT INR Fibrinogen dRVVT Confirm Interp Factor V Activity POC ABG pH POC ABG pCO2 POC ABG pO2 ABG pO2 ABG HCO3 ABG Base Excess ABG Hemoglobin Oxyhemoglobin Sodium Potassium Chloride Carbon Dioxide BUN Creatinine Glucose POC Glucose 106 H 133 H 107 H Lactic Acid Calcium Ionized Calcium Phosphorus Magnesium Direct Bilirubin AST ALT Alkaline Phosphatase Lactate Dehydrogenase Troponin T C-Reactive Protein Total Protein Albumin Prealbumin Triglycerides Cholesterol LDL Cholesterol Direct HDL Cholesterol 25-OH Vitamin D Total PTH Intact Urine pH Urine WBC (Auto) Urine Creatinine Urine Total Protein Fluid Total Protein Vancomycin Trough Rheumatoid Factor Complement C4 Miscellaneous Test Crossmatch 01/22/17 01/22/17 01/22/17 07:20 07:20 11:31 WBC RBC 2.75 L Hgb 7.5 L Hct 22.7 L MCV MCH 27 L MCHC RDW 17.5 H Plt Count Lymph % (Auto) [place] % (Auto) Lymph # [place] # Baso # Seg Neutrophils % Seg Neuts % (Manual) Lymphocytes % (Manual) Monocytes % (Manual) Eosinophils % (Manual) Basophils % (Manual) Nucleated RBC % Seg Neutrophils # Seg Neutrophils # Man Lymphocytes # (Manual) Monocytes # (Manual) Eosinophils # (Manual) Basophils # (Manual) PT INR Fibrinogen dRVVT Confirm Interp Factor V Activity POC ABG pH POC ABG pCO2 POC ABG pO2 ABG pO2 ABG HCO3 ABG Base Excess ABG Hemoglobin Oxyhemoglobin Sodium Potassium 3.3 L Chloride Carbon Dioxide BUN 42 H Creatinine Glucose 105 H POC Glucose 124 H Lactic Acid Calcium Ionized Calcium Phosphorus 1.70 L Magnesium Direct Bilirubin AST ALT Alkaline Phosphatase Lactate Dehydrogenase Troponin T C-Reactive Protein Total Protein Albumin Prealbumin Triglycerides Cholesterol LDL Cholesterol Direct HDL Cholesterol 25-OH Vitamin D Total PTH Intact Urine pH Urine WBC (Auto) Urine Creatinine Urine Total Protein Fluid Total Protein Vancomycin Trough Rheumatoid Factor Complement C4 Miscellaneous Test Crossmatch 01/22/17 01/22/17 01/23/17 17:16 23:35 05:35 WBC RBC Hgb Hct MCV MCH MCHC RDW Plt Count Lymph % (Auto) [place] % (Auto) Lymph # [place] # Baso # Seg Neutrophils % Seg Neuts % (Manual) Lymphocytes % (Manual) Monocytes % (Manual) Eosinophils % (Manual) Basophils % (Manual) Nucleated RBC % Seg Neutrophils # Seg Neutrophils # Man Lymphocytes # (Manual) Monocytes # (Manual) Eosinophils # (Manual) Basophils # (Manual) PT INR Fibrinogen dRVVT Confirm Interp Factor V Activity POC ABG pH POC ABG pCO2 POC ABG pO2 ABG pO2 ABG HCO3 ABG Base Excess ABG Hemoglobin Oxyhemoglobin Sodium Potassium Chloride Carbon Dioxide BUN Creatinine Glucose POC Glucose 135 H 120 H 111 H Lactic Acid Calcium Ionized Calcium Phosphorus Magnesium Direct Bilirubin AST ALT Alkaline Phosphatase Lactate Dehydrogenase Troponin T C-Reactive Protein Total Protein Albumin Prealbumin Triglycerides Cholesterol LDL Cholesterol Direct HDL Cholesterol 25-OH Vitamin D Total PTH Intact Urine pH Urine WBC (Auto) Urine Creatinine Urine Total Protein Fluid Total Protein Vancomycin Trough Rheumatoid Factor Complement C4 Miscellaneous Test Crossmatch 01/23/17 01/23/17 01/23/17 06:10 17:27 23:44 WBC RBC Hgb Hct MCV MCH MCHC RDW Plt Count Lymph % (Auto) [place] % (Auto) Lymph # [place] # Baso # Seg Neutrophils % Seg Neuts % (Manual) Lymphocytes % (Manual) Monocytes % (Manual) Eosinophils % (Manual) Basophils % (Manual) Nucleated RBC % Seg Neutrophils # Seg Neutrophils # Man Lymphocytes # (Manual) Monocytes # (Manual) Eosinophils # (Manual) Basophils # (Manual) PT INR Fibrinogen dRVVT Confirm Interp Factor V Activity POC ABG pH POC ABG pCO2 POC ABG pO2 ABG pO2 ABG HCO3 ABG Base Excess ABG Hemoglobin Oxyhemoglobin Sodium Potassium 3.3 L Chloride Carbon Dioxide BUN 66 H Creatinine 1.3 H Glucose 109 H POC Glucose 120 H 115 H Lactic Acid Calcium Ionized Calcium Phosphorus 2.20 L D Magnesium Direct Bilirubin AST ALT Alkaline Phosphatase Lactate Dehydrogenase Troponin T C-Reactive Protein Total Protein Albumin Prealbumin Triglycerides Cholesterol LDL Cholesterol Direct HDL Cholesterol 25-OH Vitamin D Total PTH Intact Urine pH Urine WBC (Auto) Urine Creatinine Urine Total Protein Fluid Total Protein Vancomycin Trough Rheumatoid Factor Complement C4 Miscellaneous Test Crossmatch 01/24/17 01/24/17 01/24/17 05:19 05:50 12:19 WBC RBC Hgb Hct MCV MCH MCHC RDW Plt Count Lymph % (Auto) [place] % (Auto) Lymph # [place] # Baso # Seg Neutrophils % Seg Neuts % (Manual) Lymphocytes % (Manual) Monocytes % (Manual) Eosinophils % (Manual) Basophils % (Manual) Nucleated RBC % Seg Neutrophils # Seg Neutrophils # Man Lymphocytes # (Manual) Monocytes # (Manual) Eosinophils # (Manual) Basophils # (Manual) PT INR Fibrinogen dRVVT Confirm Interp Factor V Activity POC ABG pH POC ABG pCO2 POC ABG pO2 ABG pO2 ABG HCO3 ABG Base Excess ABG Hemoglobin Oxyhemoglobin Sodium Potassium Chloride Carbon Dioxide BUN 47 H Creatinine Glucose 117 H POC Glucose 126 H 119 H Lactic Acid Calcium Ionized Calcium Phosphorus 2.30 L Magnesium 1.60 L Direct Bilirubin AST ALT Alkaline Phosphatase Lactate Dehydrogenase Troponin T C-Reactive Protein Total Protein Albumin Prealbumin Triglycerides Cholesterol LDL Cholesterol Direct HDL Cholesterol 25-OH Vitamin D Total PTH Intact Urine pH Urine WBC (Auto) Urine Creatinine Urine Total Protein Fluid Total Protein Vancomycin Trough Rheumatoid Factor Complement C4 Miscellaneous Test Crossmatch 01/24/17 01/25/17 01/25/17 17:08 00:37 04:00 WBC RBC Hgb Hct MCV MCH MCHC RDW Plt Count Lymph % (Auto) [place] % (Auto) Lymph # [place] # Baso # Seg Neutrophils % Seg Neuts % (Manual) Lymphocytes % (Manual) Monocytes % (Manual) Eosinophils % (Manual) Basophils % (Manual) Nucleated RBC % Seg Neutrophils # Seg Neutrophils # Man Lymphocytes # (Manual) Monocytes # (Manual) Eosinophils # (Manual) Basophils # (Manual) PT INR Fibrinogen dRVVT Confirm Interp Factor V Activity POC ABG pH POC ABG pCO2 POC ABG pO2 ABG pO2 ABG HCO3 ABG Base Excess ABG Hemoglobin Oxyhemoglobin Sodium Potassium Chloride Carbon Dioxide BUN 72 H Creatinine 1.3 H Glucose POC Glucose 127 H 110 H Lactic Acid Calcium Ionized Calcium Phosphorus Magnesium Direct Bilirubin AST ALT Alkaline Phosphatase Lactate Dehydrogenase Troponin T C-Reactive Protein Total Protein Albumin Prealbumin Triglycerides Cholesterol LDL Cholesterol Direct HDL Cholesterol 25-OH Vitamin D Total PTH Intact Urine pH Urine WBC (Auto) Urine Creatinine Urine Total Protein Fluid Total Protein Vancomycin Trough Rheumatoid Factor Complement C4 Miscellaneous Test Crossmatch 01/25/17 01/25/17 01/25/17 04:00 11:15 13:05 WBC RBC 2.49 L Hgb 6.7 L Hct 20.9 L MCV MCH 27 L MCHC RDW 18.8 H Plt Count Lymph % (Auto) [place] % (Auto) 10.1 H Lymph # [place] # 1.0 H Baso # Seg Neutrophils % Seg Neuts % (Manual) Lymphocytes % (Manual) Monocytes % (Manual) Eosinophils % (Manual) Basophils % (Manual) Nucleated RBC % Seg Neutrophils # Seg Neutrophils # Man Lymphocytes # (Manual) Monocytes # (Manual) Eosinophils # (Manual) Basophils # (Manual) PT INR Fibrinogen dRVVT Confirm Interp Factor V Activity POC ABG pH POC ABG pCO2 POC ABG pO2 ABG pO2 ABG HCO3 ABG Base Excess ABG Hemoglobin Oxyhemoglobin Sodium Potassium Chloride Carbon Dioxide BUN Creatinine Glucose POC Glucose 128 H Lactic Acid Calcium Ionized Calcium Phosphorus Magnesium Direct Bilirubin AST ALT Alkaline Phosphatase Lactate Dehydrogenase Troponin T C-Reactive Protein Total Protein Albumin Prealbumin Triglycerides Cholesterol LDL Cholesterol Direct HDL Cholesterol 25-OH Vitamin D Total PTH Intact Urine pH Urine WBC (Auto) Urine Creatinine Urine Total Protein Fluid Total Protein Vancomycin Trough Rheumatoid Factor Complement C4 Miscellaneous Test Crossmatch See Detail 01/25/17 01/25/17 01/26/17 18:02 23:07 01:20 WBC RBC Hgb Hct MCV MCH MCHC RDW Plt Count Lymph % (Auto) [place] % (Auto) Lymph # [place] # Baso # Seg Neutrophils % Seg Neuts % (Manual) Lymphocytes % (Manual) Monocytes % (Manual) Eosinophils % (Manual) Basophils % (Manual) Nucleated RBC % Seg Neutrophils # Seg Neutrophils # Man Lymphocytes # (Manual) Monocytes # (Manual) Eosinophils # (Manual) Basophils # (Manual) PT INR Fibrinogen dRVVT Confirm Interp Factor V Activity POC ABG pH POC ABG pCO2 POC ABG pO2 ABG pO2 ABG HCO3 ABG Base Excess ABG Hemoglobin Oxyhemoglobin Sodium Potassium Chloride Carbon Dioxide BUN Creatinine Glucose POC Glucose 120 H 123 H 112 H Lactic Acid Calcium Ionized Calcium Phosphorus Magnesium Direct Bilirubin AST ALT Alkaline Phosphatase Lactate Dehydrogenase Troponin T C-Reactive Protein Total Protein Albumin Prealbumin Triglycerides Cholesterol LDL Cholesterol Direct HDL Cholesterol 25-OH Vitamin D Total PTH Intact Urine pH Urine WBC (Auto) Urine Creatinine Urine Total Protein Fluid Total Protein Vancomycin Trough Rheumatoid Factor Complement C4 Miscellaneous Test Crossmatch 01/26/17 01/26/17 01/26/17 04:20 04:20 11:23 WBC 13.1 H RBC 3.28 L Hgb 9.0 L Hct 26.9 L D MCV MCH 27 L MCHC RDW 17.2 H Plt Count Lymph % (Auto) [place] % (Auto) 9.0 H Lymph # [place] # 1.2 H Baso # Seg Neutrophils % 73.1 H Seg Neuts % (Manual) Lymphocytes % (Manual) Monocytes % (Manual) Eosinophils % (Manual) Basophils % (Manual) Nucleated RBC % Seg Neutrophils # 9.6 H Seg Neutrophils # Man Lymphocytes # (Manual) Monocytes # (Manual) Eosinophils # (Manual) Basophils # (Manual) PT INR Fibrinogen dRVVT Confirm Interp Factor V Activity POC ABG pH POC ABG pCO2 POC ABG pO2 ABG pO2 ABG HCO3 ABG Base Excess ABG Hemoglobin Oxyhemoglobin Sodium Potassium Chloride Carbon Dioxide BUN 51 H Creatinine Glucose 117 H POC Glucose 125 H Lactic Acid Calcium Ionized Calcium Phosphorus Magnesium Direct Bilirubin AST ALT Alkaline Phosphatase Lactate Dehydrogenase Troponin T C-Reactive Protein Total Protein Albumin Prealbumin Triglycerides Cholesterol LDL Cholesterol Direct HDL Cholesterol 25-OH Vitamin D Total PTH Intact Urine pH Urine WBC (Auto) Urine Creatinine Urine Total Protein Fluid Total Protein Vancomycin Trough Rheumatoid Factor Complement C4 Miscellaneous Test Crossmatch 01/26/17 01/27/17 01/27/17 17:11 00:30 04:00 WBC RBC Hgb Hct MCV MCH MCHC RDW Plt Count Lymph % (Auto) [place] % (Auto) Lymph # [place] # Baso # Seg Neutrophils % Seg Neuts % (Manual) Lymphocytes % (Manual) Monocytes % (Manual) Eosinophils % (Manual) Basophils % (Manual) Nucleated RBC % Seg Neutrophils # Seg Neutrophils # Man Lymphocytes # (Manual) Monocytes # (Manual) Eosinophils # (Manual) Basophils # (Manual) PT INR Fibrinogen dRVVT Confirm Interp Factor V Activity POC ABG pH POC ABG pCO2 POC ABG pO2 ABG pO2 ABG HCO3 ABG Base Excess ABG Hemoglobin Oxyhemoglobin Sodium Potassium Chloride 97.7 L Carbon Dioxide 21 L BUN 79 H Creatinine 1.7 H D Glucose 112 H POC Glucose 133 H 135 H Lactic Acid Calcium Ionized Calcium Phosphorus 5.00 H D Magnesium Direct Bilirubin AST ALT Alkaline Phosphatase Lactate Dehydrogenase Troponin T C-Reactive Protein Total Protein Albumin Prealbumin Triglycerides Cholesterol LDL Cholesterol Direct HDL Cholesterol 25-OH Vitamin D Total PTH Intact Urine pH Urine WBC (Auto) Urine Creatinine Urine Total Protein Fluid Total Protein Vancomycin Trough Rheumatoid Factor Complement C4 Miscellaneous Test Crossmatch 01/27/17 01/27/17 01/27/17 05:12 12:18 17:25 WBC RBC Hgb Hct MCV MCH MCHC RDW Plt Count Lymph % (Auto) [place] % (Auto) Lymph # [place] # Baso # Seg Neutrophils % Seg Neuts % (Manual) Lymphocytes % (Manual) Monocytes % (Manual) Eosinophils % (Manual) Basophils % (Manual) Nucleated RBC % Seg Neutrophils # Seg Neutrophils # Man Lymphocytes # (Manual) Monocytes # (Manual) Eosinophils # (Manual) Basophils # (Manual) PT INR Fibrinogen dRVVT Confirm Interp Factor V Activity POC ABG pH POC ABG pCO2 POC ABG pO2 ABG pO2 ABG HCO3 ABG Base Excess ABG Hemoglobin Oxyhemoglobin Sodium Potassium Chloride Carbon Dioxide BUN Creatinine Glucose POC Glucose 116 H 153 H 152 H Lactic Acid Calcium Ionized Calcium Phosphorus Magnesium Direct Bilirubin AST ALT Alkaline Phosphatase Lactate Dehydrogenase Troponin T C-Reactive Protein Total Protein Albumin Prealbumin Triglycerides Cholesterol LDL Cholesterol Direct HDL Cholesterol 25-OH Vitamin D Total PTH Intact Urine pH Urine WBC (Auto) Urine Creatinine Urine Total Protein Fluid Total Protein Vancomycin Trough Rheumatoid Factor Complement C4 Miscellaneous Test Crossmatch 01/27/17 01/28/17 01/28/17 23:42 04:00 04:00 WBC 14.4 H RBC 2.82 L Hgb 7.4 L Hct 23.5 L MCV MCH 26 L MCHC RDW 17.6 H Plt Count Lymph % (Auto) 10.[address] [place] % (Auto) 11.0 H Lymph # [place] # 1.6 H Baso # Seg Neutrophils % 78.0 H Seg Neuts % (Manual) Lymphocytes % (Manual) Monocytes % (Manual) Eosinophils % (Manual) Basophils % (Manual) Nucleated RBC % Seg Neutrophils # 11.3 H Seg Neutrophils # Man Lymphocytes # (Manual) Monocytes # (Manual) Eosinophils # (Manual) Basophils # (Manual) PT INR Fibrinogen dRVVT Confirm Interp Factor V Activity POC ABG pH POC ABG pCO2 POC ABG pO2 ABG pO2 ABG HCO3 ABG Base Excess ABG Hemoglobin Oxyhemoglobin Sodium Potassium Chloride Carbon Dioxide BUN 55 H Creatinine 1.3 H Glucose 114 H POC Glucose 121 H Lactic Acid Calcium Ionized Calcium Phosphorus Magnesium Direct Bilirubin AST ALT Alkaline Phosphatase Lactate Dehydrogenase Troponin T C-Reactive Protein Total Protein Albumin 1.4 L Prealbumin Triglycerides Cholesterol LDL Cholesterol Direct HDL Cholesterol 25-OH Vitamin D Total PTH Intact Urine pH Urine WBC (Auto) Urine Creatinine Urine Total Protein Fluid Total Protein Vancomycin Trough Rheumatoid Factor Complement C4 Miscellaneous Test Crossmatch 01/28/17 01/28/17 01/29/17 04:59 12:30 00:02 WBC RBC Hgb Hct MCV MCH MCHC RDW Plt Count Lymph % (Auto) [place] % (Auto) Lymph # [place] # Baso # Seg Neutrophils % Seg Neuts % (Manual) Lymphocytes % (Manual) Monocytes % (Manual) Eosinophils % (Manual) Basophils % (Manual) Nucleated RBC % Seg Neutrophils # Seg Neutrophils # Man Lymphocytes # (Manual) Monocytes # (Manual) Eosinophils # (Manual) Basophils # (Manual) PT INR Fibrinogen dRVVT Confirm Interp Factor V Activity POC ABG pH POC ABG pCO2 POC ABG pO2 ABG pO2 ABG HCO3 ABG Base Excess ABG Hemoglobin Oxyhemoglobin Sodium Potassium Chloride Carbon Dioxide BUN Creatinine Glucose POC Glucose 126 H 119 H 138 H Lactic Acid Calcium Ionized Calcium Phosphorus Magnesium Direct Bilirubin AST ALT Alkaline Phosphatase Lactate Dehydrogenase Troponin T C-Reactive Protein Total Protein Albumin Prealbumin Triglycerides Cholesterol LDL Cholesterol Direct HDL Cholesterol 25-OH Vitamin D Total PTH Intact Urine pH Urine WBC (Auto) Urine Creatinine Urine Total Protein Fluid Total Protein Vancomycin Trough Rheumatoid Factor Complement C4 Miscellaneous Test Crossmatch 01/29/17 01/29/17 01/29/17 04:58 06:15 11:35 WBC RBC Hgb Hct MCV MCH MCHC RDW Plt Count Lymph % (Auto) [place] % (Auto) Lymph # [place] # Baso # Seg Neutrophils % Seg Neuts % (Manual) Lymphocytes % (Manual) Monocytes % (Manual) Eosinophils % (Manual) Basophils % (Manual) Nucleated RBC % Seg Neutrophils # Seg Neutrophils # Man Lymphocytes # (Manual) Monocytes # (Manual) Eosinophils # (Manual) Basophils # (Manual) PT INR Fibrinogen dRVVT Confirm Interp Factor V Activity POC ABG pH POC ABG pCO2 POC ABG pO2 ABG pO2 ABG HCO3 ABG Base Excess ABG Hemoglobin Oxyhemoglobin Sodium Potassium Chloride Carbon Dioxide BUN 85 H Creatinine 1.7 H Glucose 105 H POC Glucose 114 H 110 H Lactic Acid Calcium Ionized Calcium Phosphorus Magnesium 2.40 H Direct Bilirubin AST ALT Alkaline Phosphatase Lactate Dehydrogenase Troponin T C-Reactive Protein Total Protein Albumin Prealbumin Triglycerides Cholesterol LDL Cholesterol Direct HDL Cholesterol 25-OH Vitamin D Total PTH Intact Urine pH Urine WBC (Auto) Urine Creatinine Urine Total Protein Fluid Total Protein Vancomycin Trough Rheumatoid Factor Complement C4 Miscellaneous Test Crossmatch 01/29/17 01/29/17 01/30/17 18:24 23:41 05:12 WBC RBC Hgb Hct MCV MCH MCHC RDW Plt Count Lymph % (Auto) [place] % (Auto) Lymph # [place] # Baso # Seg Neutrophils % Seg Neuts % (Manual) Lymphocytes % (Manual) Monocytes % (Manual) Eosinophils % (Manual) Basophils % (Manual) Nucleated RBC % Seg Neutrophils # Seg Neutrophils # Man Lymphocytes # (Manual) Monocytes # (Manual) Eosinophils # (Manual) Basophils # (Manual) PT INR Fibrinogen dRVVT Confirm Interp Factor V Activity POC ABG pH POC ABG pCO2 POC ABG pO2 ABG pO2 ABG HCO3 ABG Base Excess ABG Hemoglobin Oxyhemoglobin Sodium Potassium Chloride Carbon Dioxide BUN Creatinine Glucose POC Glucose 109 H 134 H 109 H Lactic Acid Calcium Ionized Calcium Phosphorus Magnesium Direct Bilirubin AST ALT Alkaline Phosphatase Lactate Dehydrogenase Troponin T C-Reactive Protein Total Protein Albumin Prealbumin Triglycerides Cholesterol LDL Cholesterol Direct HDL Cholesterol 25-OH Vitamin D Total PTH Intact Urine pH Urine WBC (Auto) Urine Creatinine Urine Total Protein Fluid Total Protein Vancomycin Trough Rheumatoid Factor Complement C4 Miscellaneous Test Crossmatch 01/30/17 01/30/17 01/30/17 11:26 17:43 23:39 WBC RBC Hgb Hct MCV MCH MCHC RDW Plt Count Lymph % (Auto) [place] % (Auto) Lymph # [place] # Baso # Seg Neutrophils % Seg Neuts % (Manual) Lymphocytes % (Manual) Monocytes % (Manual) Eosinophils % (Manual) Basophils % (Manual) Nucleated RBC % Seg Neutrophils # Seg Neutrophils # Man Lymphocytes # (Manual) Monocytes # (Manual) Eosinophils # (Manual) Basophils # (Manual) PT INR Fibrinogen dRVVT Confirm Interp Factor V Activity POC ABG pH POC ABG pCO2 POC ABG pO2 ABG pO2 ABG HCO3 ABG Base Excess ABG Hemoglobin Oxyhemoglobin Sodium Potassium Chloride Carbon Dioxide BUN Creatinine Glucose POC Glucose 135 H 143 H 122 H Lactic Acid Calcium Ionized Calcium Phosphorus Magnesium Direct Bilirubin AST ALT Alkaline Phosphatase Lactate Dehydrogenase Troponin T C-Reactive Protein Total Protein Albumin Prealbumin Triglycerides Cholesterol LDL Cholesterol Direct HDL Cholesterol 25-OH Vitamin D Total PTH Intact Urine pH Urine WBC (Auto) Urine Creatinine Urine Total Protein Fluid Total Protein Vancomycin Trough Rheumatoid Factor Complement C4 Miscellaneous Test Crossmatch 01/31/17 01/31/17 01/31/17 04:00 05:40 11:12 WBC RBC Hgb Hct MCV MCH MCHC RDW Plt Count Lymph % (Auto) [place] % (Auto) Lymph # [place] # Baso # Seg Neutrophils % Seg Neuts % (Manual) Lymphocytes % (Manual) Monocytes % (Manual) Eosinophils % (Manual) Basophils % (Manual) Nucleated RBC % Seg Neutrophils # Seg Neutrophils # Man Lymphocytes # (Manual) Monocytes # (Manual) Eosinophils # (Manual) Basophils # (Manual) PT INR Fibrinogen dRVVT Confirm Interp Factor V Activity POC ABG pH POC ABG pCO2 POC ABG pO2 ABG pO2 ABG HCO3 ABG Base Excess ABG Hemoglobin Oxyhemoglobin Sodium Potassium Chloride Carbon Dioxide BUN 78 H Creatinine 1.5 H Glucose 108 H POC Glucose 123 H Lactic Acid Calcium Ionized Calcium Phosphorus Magnesium Direct Bilirubin AST ALT Alkaline Phosphatase Lactate Dehydrogenase Troponin T C-Reactive Protein 8.10 H Total Protein Albumin Prealbumin Triglycerides Cholesterol LDL Cholesterol Direct HDL Cholesterol 25-OH Vitamin D Total PTH Intact Urine pH Urine WBC (Auto) Urine Creatinine Urine Total Protein Fluid Total Protein Vancomycin Trough Rheumatoid Factor Complement C4 Miscellaneous Test Crossmatch 01/31/17 01/31/17 01/31/17 11:16 17:45 17:50 WBC RBC Hgb Hct MCV MCH MCHC RDW Plt Count Lymph % (Auto) [place] % (Auto) Lymph # [place] # Baso # Seg Neutrophils % Seg Neuts % (Manual) Lymphocytes % (Manual) Monocytes % (Manual) Eosinophils % (Manual) Basophils % (Manual) Nucleated RBC % Seg Neutrophils # Seg Neutrophils # Man Lymphocytes # (Manual) Monocytes # (Manual) Eosinophils # (Manual) Basophils # (Manual) PT INR Fibrinogen dRVVT Confirm Interp Factor V Activity POC ABG pH POC ABG pCO2 POC ABG pO2 ABG pO2 ABG HCO3 ABG Base Excess ABG Hemoglobin Oxyhemoglobin Sodium Potassium Chloride Carbon Dioxide BUN Creatinine Glucose POC Glucose 119 H 111 H Lactic Acid Calcium Ionized Calcium Phosphorus Magnesium Direct Bilirubin AST ALT Alkaline Phosphatase Lactate Dehydrogenase Troponin T C-Reactive Protein Total Protein Albumin Prealbumin Triglycerides Cholesterol LDL Cholesterol Direct HDL Cholesterol 25-OH Vitamin D Total PTH Intact 6.76 L Urine pH Urine WBC (Auto) Urine Creatinine Urine Total Protein Fluid Total Protein Vancomycin Trough Rheumatoid Factor Complement C4 Miscellaneous Test Crossmatch 01/31/17 02/01/17 02/01/17 23:19 05:42 09:24 WBC RBC Hgb Hct MCV MCH MCHC RDW Plt Count Lymph % (Auto) [place] % (Auto) Lymph # [place] # Baso # Seg Neutrophils % Seg Neuts % (Manual) Lymphocytes % (Manual) Monocytes % (Manual) Eosinophils % (Manual) Basophils % (Manual) Nucleated RBC % Seg Neutrophils # Seg Neutrophils # Man Lymphocytes # (Manual) Monocytes # (Manual) Eosinophils # (Manual) Basophils # (Manual) PT INR Fibrinogen dRVVT Confirm Interp Factor V Activity POC ABG pH POC ABG pCO2 POC ABG pO2 ABG pO2 ABG HCO3 ABG Base Excess ABG Hemoglobin Oxyhemoglobin Sodium Potassium Chloride Carbon Dioxide BUN Creatinine Glucose POC Glucose 118 H 122 H Lactic Acid Calcium Ionized Calcium Phosphorus Magnesium 2.60 H Direct Bilirubin AST ALT Alkaline Phosphatase Lactate Dehydrogenase Troponin T C-Reactive Protein Total Protein Albumin Prealbumin Triglycerides Cholesterol LDL Cholesterol Direct HDL Cholesterol 25-OH Vitamin D Total PTH Intact Urine pH Urine WBC (Auto) Urine Creatinine Urine Total Protein Fluid Total Protein Vancomycin Trough Rheumatoid Factor Complement C4 Miscellaneous Test Crossmatch 02/01/17 02/01/17 02/02/17 09:24 12:15 07:40 WBC RBC Hgb Hct MCV MCH MCHC RDW Plt Count Lymph % (Auto) [place] % (Auto) Lymph # [place] # Baso # Seg Neutrophils % Seg Neuts % (Manual) Lymphocytes % (Manual) Monocytes % (Manual) Eosinophils % (Manual) Basophils % (Manual) Nucleated RBC % Seg Neutrophils # Seg Neutrophils # Man Lymphocytes # (Manual) Monocytes # (Manual) Eosinophils # (Manual) Basophils # (Manual) PT INR Fibrinogen dRVVT Confirm Interp Factor V Activity POC ABG pH POC ABG pCO2 POC ABG pO2 ABG pO2 ABG HCO3 ABG Base Excess ABG Hemoglobin Oxyhemoglobin Sodium Potassium Chloride Carbon Dioxide BUN 102 H 72 H Creatinine 1.9 H 1.5 H Glucose 120 H POC Glucose 156 H Lactic Acid Calcium Ionized Calcium Phosphorus Magnesium Direct Bilirubin AST ALT Alkaline Phosphatase Lactate Dehydrogenase Troponin T C-Reactive Protein Total Protein Albumin Prealbumin Triglycerides Cholesterol LDL Cholesterol Direct HDL Cholesterol 25-OH Vitamin D Total PTH Intact Urine pH Urine WBC (Auto) Urine Creatinine Urine Total Protein Fluid Total Protein Vancomycin Trough Rheumatoid Factor Complement C4 Miscellaneous Test Crossmatch 02/02/17 02/02/17 02/03/17 10:16 12:11 00:08 WBC 12.0 H RBC 3.08 L Hgb 8.3 L Hct 25.6 L MCV MCH 27 L MCHC RDW 18.2 H Plt Count Lymph % (Auto) [place] % (Auto) Lymph # [place] # Baso # Seg Neutrophils % 78.4 H Seg Neuts % (Manual) Lymphocytes % (Manual) Monocytes % (Manual) Eosinophils % (Manual) Basophils % (Manual) Nucleated RBC % Seg Neutrophils # 9.4 H Seg Neutrophils # Man Lymphocytes # (Manual) Monocytes # (Manual) Eosinophils # (Manual) Basophils # (Manual) PT INR Fibrinogen dRVVT Confirm Interp Factor V Activity POC ABG pH POC ABG pCO2 POC ABG pO2 ABG pO2 ABG HCO3 ABG Base Excess ABG Hemoglobin Oxyhemoglobin Sodium Potassium Chloride Carbon Dioxide BUN Creatinine Glucose POC Glucose 110 H 120 H Lactic Acid Calcium Ionized Calcium Phosphorus Magnesium Direct Bilirubin AST ALT Alkaline Phosphatase Lactate Dehydrogenase Troponin T C-Reactive Protein Total Protein Albumin Prealbumin Triglycerides Cholesterol LDL Cholesterol Direct HDL Cholesterol 25-OH Vitamin D Total PTH Intact Urine pH Urine WBC (Auto) Urine Creatinine Urine Total Protein Fluid Total Protein Vancomycin Trough Rheumatoid Factor Complement C4 Miscellaneous Test Crossmatch 02/03/17 02/03/17 02/03/17 05:41 07:38 11:31 WBC RBC Hgb Hct MCV MCH MCHC RDW Plt Count Lymph % (Auto) [place] % (Auto) Lymph # [place] # Baso # Seg Neutrophils % Seg Neuts % (Manual) Lymphocytes % (Manual) Monocytes % (Manual) Eosinophils % (Manual) Basophils % (Manual) Nucleated RBC % Seg Neutrophils # Seg Neutrophils # Man Lymphocytes # (Manual) Monocytes # (Manual) Eosinophils # (Manual) Basophils # (Manual) PT INR Fibrinogen dRVVT Confirm Interp Factor V Activity POC ABG pH POC ABG pCO2 POC ABG pO2 ABG pO2 ABG HCO3 ABG Base Excess ABG Hemoglobin Oxyhemoglobin Sodium 134 L Potassium Chloride Carbon Dioxide 21 L BUN 91 H Creatinine 1.9 H Glucose 110 H POC Glucose 119 H 119 H Lactic Acid Calcium 10.3 H Ionized Calcium Phosphorus Magnesium Direct Bilirubin AST ALT Alkaline Phosphatase Lactate Dehydrogenase Troponin T C-Reactive Protein Total Protein Albumin Prealbumin Triglycerides Cholesterol LDL Cholesterol Direct HDL Cholesterol 25-OH Vitamin D Total PTH Intact Urine pH Urine WBC (Auto) Urine Creatinine Urine Total Protein Fluid Total Protein Vancomycin Trough Rheumatoid Factor Complement C4 Miscellaneous Test Crossmatch 02/03/17 02/04/17 02/04/17 17:13 04:00 05:18 WBC RBC Hgb Hct MCV MCH MCHC RDW Plt Count Lymph % (Auto) [place] % (Auto) Lymph # [place] # Baso # Seg Neutrophils % Seg Neuts % (Manual) Lymphocytes % (Manual) Monocytes % (Manual) Eosinophils % (Manual) Basophils % (Manual) Nucleated RBC % Seg Neutrophils # Seg Neutrophils # Man Lymphocytes # (Manual) Monocytes # (Manual) Eosinophils # (Manual) Basophils # (Manual) PT INR Fibrinogen dRVVT Confirm Interp Factor V Activity POC ABG pH POC ABG pCO2 POC ABG pO2 ABG pO2 ABG HCO3 ABG Base Excess ABG Hemoglobin Oxyhemoglobin Sodium 136 L Potassium Chloride Carbon Dioxide BUN 58 H Creatinine 1.3 H Glucose 103 H POC Glucose 133 H 132 H Lactic Acid Calcium Ionized Calcium Phosphorus 2.00 L D Magnesium 1.60 L Direct Bilirubin AST ALT Alkaline Phosphatase Lactate Dehydrogenase Troponin T C-Reactive Protein Total Protein Albumin Prealbumin Triglycerides Cholesterol LDL Cholesterol Direct HDL Cholesterol 25-OH Vitamin D Total PTH Intact Urine pH Urine WBC (Auto) Urine Creatinine Urine Total Protein Fluid Total Protein Vancomycin Trough Rheumatoid Factor Complement C4 Miscellaneous Test Crossmatch 02/05/17 02/05/17 02/05/17 00:01 04:00 06:42 WBC RBC Hgb Hct MCV MCH MCHC RDW Plt Count Lymph % (Auto) [place] % (Auto) Lymph # [place] # Baso # Seg Neutrophils % Seg Neuts % (Manual) Lymphocytes % (Manual) Monocytes % (Manual) Eosinophils % (Manual) Basophils % (Manual) Nucleated RBC % Seg Neutrophils # Seg Neutrophils # Man Lymphocytes # (Manual) Monocytes # (Manual) Eosinophils # (Manual) Basophils # (Manual) PT INR Fibrinogen dRVVT Confirm Interp Factor V Activity POC ABG pH POC ABG pCO2 POC ABG pO2 ABG pO2 ABG HCO3 ABG Base Excess ABG Hemoglobin Oxyhemoglobin Sodium Potassium Chloride Carbon Dioxide BUN 83 H Creatinine 1.8 H Glucose POC Glucose 119 H 110 H Lactic Acid Calcium 10.7 H Ionized Calcium Phosphorus Magnesium Direct Bilirubin AST ALT Alkaline Phosphatase Lactate Dehydrogenase Troponin T C-Reactive Protein Total Protein Albumin Prealbumin Triglycerides Cholesterol LDL Cholesterol Direct HDL Cholesterol 25-OH Vitamin D Total PTH Intact Urine pH Urine WBC (Auto) Urine Creatinine Urine Total Protein Fluid Total Protein Vancomycin Trough Rheumatoid Factor Complement C4 Miscellaneous Test Crossmatch 02/05/17 02/05/17 02/05/17 09:59 11:47 23:44 WBC RBC 2.69 L Hgb 7.2 L Hct 22.5 L MCV MCH 27 L MCHC RDW 18.6 H Plt Count Lymph % (Auto) [place] % (Auto) 9.2 H Lymph # [place] # 0.9 H Baso # Seg Neutrophils % Seg Neuts % (Manual) Lymphocytes % (Manual) Monocytes % (Manual) Eosinophils % (Manual) Basophils % (Manual) Nucleated RBC % Seg Neutrophils # Seg Neutrophils # Man Lymphocytes # (Manual) Monocytes # (Manual) Eosinophils # (Manual) Basophils # (Manual) PT INR Fibrinogen dRVVT Confirm Interp Factor V Activity POC ABG pH POC ABG pCO2 POC ABG pO2 ABG pO2 ABG HCO3 ABG Base Excess ABG Hemoglobin Oxyhemoglobin Sodium Potassium Chloride Carbon Dioxide BUN Creatinine Glucose POC Glucose 130 H 123 H Lactic Acid Calcium Ionized Calcium Phosphorus Magnesium Direct Bilirubin AST ALT Alkaline Phosphatase Lactate Dehydrogenase Troponin T C-Reactive Protein Total Protein Albumin Prealbumin Triglycerides Cholesterol LDL Cholesterol Direct HDL Cholesterol 25-OH Vitamin D Total PTH Intact Urine pH Urine WBC (Auto) Urine Creatinine Urine Total Protein Fluid Total Protein Vancomycin Trough Rheumatoid Factor Complement C4 Miscellaneous Test Crossmatch 02/06/17 02/06/17 02/06/17 04:45 05:58 12:01 WBC RBC Hgb Hct MCV MCH MCHC RDW Plt Count Lymph % (Auto) [place] % (Auto) Lymph # [place] # Baso # Seg Neutrophils % Seg Neuts % (Manual) Lymphocytes % (Manual) Monocytes % (Manual) Eosinophils % (Manual) Basophils % (Manual) Nucleated RBC % Seg Neutrophils # Seg Neutrophils # Man Lymphocytes # (Manual) Monocytes # (Manual) Eosinophils # (Manual) Basophils # (Manual) PT INR Fibrinogen dRVVT Confirm Interp Factor V Activity POC ABG pH POC ABG pCO2 POC ABG pO2 ABG pO2 ABG HCO3 ABG Base Excess ABG Hemoglobin Oxyhemoglobin Sodium Potassium Chloride Carbon Dioxide BUN 101 H Creatinine 2.0 H Glucose 102 H POC Glucose 115 H 132 H Lactic Acid Calcium 10.6 H Ionized Calcium Phosphorus Magnesium Direct Bilirubin AST ALT Alkaline Phosphatase 199 H Lactate Dehydrogenase Troponin T C-Reactive Protein Total Protein Albumin 1.4 L Prealbumin Triglycerides Cholesterol LDL Cholesterol Direct HDL Cholesterol 25-OH Vitamin D Total PTH Intact Urine pH Urine WBC (Auto) Urine Creatinine Urine Total Protein Fluid Total Protein Vancomycin Trough Rheumatoid Factor Complement C4 Miscellaneous Test Crossmatch 02/06/17 02/06/17 02/07/17 17:41 23:32 05:04 WBC RBC Hgb Hct MCV MCH MCHC RDW Plt Count Lymph % (Auto) [place] % (Auto) Lymph # [place] # Baso # Seg Neutrophils % Seg Neuts % (Manual) Lymphocytes % (Manual) Monocytes % (Manual) Eosinophils % (Manual) Basophils % (Manual) Nucleated RBC % Seg Neutrophils # Seg Neutrophils # Man Lymphocytes # (Manual) Monocytes # (Manual) Eosinophils # (Manual) Basophils # (Manual) PT INR Fibrinogen dRVVT Confirm Interp Factor V Activity POC ABG pH POC ABG pCO2 POC ABG pO2 ABG pO2 ABG HCO3 ABG Base Excess ABG Hemoglobin Oxyhemoglobin Sodium Potassium Chloride Carbon Dioxide BUN Creatinine Glucose POC Glucose 134 H 128 H 119 H Lactic Acid Calcium Ionized Calcium Phosphorus Magnesium Direct Bilirubin AST ALT Alkaline Phosphatase Lactate Dehydrogenase Troponin T C-Reactive Protein Total Protein Albumin Prealbumin Triglycerides Cholesterol LDL Cholesterol Direct HDL Cholesterol 25-OH Vitamin D Total PTH Intact Urine pH Urine WBC (Auto) Urine Creatinine Urine Total Protein Fluid Total Protein Vancomycin Trough Rheumatoid Factor Complement C4 Miscellaneous Test Crossmatch 02/07/17 02/07/17 02/07/17 06:30 11:20 17:13 WBC RBC Hgb Hct MCV MCH MCHC RDW Plt Count Lymph % (Auto) [place] % (Auto) Lymph # [place] # Baso # Seg Neutrophils % Seg Neuts % (Manual) Lymphocytes % (Manual) Monocytes % (Manual) Eosinophils % (Manual) Basophils % (Manual) Nucleated RBC % Seg Neutrophils # Seg Neutrophils # Man Lymphocytes # (Manual) Monocytes # (Manual) Eosinophils # (Manual) Basophils # (Manual) PT INR Fibrinogen dRVVT Confirm Interp Factor V Activity POC ABG pH POC ABG pCO2 POC ABG pO2 ABG pO2 ABG HCO3 ABG Base Excess ABG Hemoglobin Oxyhemoglobin Sodium Potassium 3.4 L Chloride Carbon Dioxide BUN 69 H Creatinine 1.5 H Glucose 105 H POC Glucose 117 H 110 H Lactic Acid Calcium Ionized Calcium Phosphorus Magnesium 1.50 L Direct Bilirubin AST ALT Alkaline Phosphatase Lactate Dehydrogenase Troponin T C-Reactive Protein Total Protein Albumin Prealbumin Triglycerides Cholesterol LDL Cholesterol Direct HDL Cholesterol 25-OH Vitamin D Total PTH Intact Urine pH Urine WBC (Auto) Urine Creatinine Urine Total Protein Fluid Total Protein Vancomycin Trough Rheumatoid Factor Complement C4 Miscellaneous Test Crossmatch 02/07/17 02/08/17 02/08/17 20:47 04:00 11:43 WBC RBC Hgb Hct MCV MCH MCHC RDW Plt Count Lymph % (Auto) [place] % (Auto) Lymph # [place] # Baso # Seg Neutrophils % Seg Neuts % (Manual) Lymphocytes % (Manual) Monocytes % (Manual) Eosinophils % (Manual) Basophils % (Manual) Nucleated RBC % Seg Neutrophils # Seg Neutrophils # Man Lymphocytes # (Manual) Monocytes # (Manual) Eosinophils # (Manual) Basophils # (Manual) PT INR Fibrinogen dRVVT Confirm Interp Factor V Activity POC ABG pH POC ABG pCO2 POC ABG pO2 ABG pO2 ABG HCO3 ABG Base Excess ABG Hemoglobin Oxyhemoglobin Sodium Potassium Chloride Carbon Dioxide BUN 86 H Creatinine 1.7 H Glucose POC Glucose 115 H 122 H Lactic Acid Calcium Ionized Calcium Phosphorus Magnesium 1.60 L Direct Bilirubin AST ALT Alkaline Phosphatase Lactate Dehydrogenase Troponin T C-Reactive Protein Total Protein Albumin Prealbumin Triglycerides Cholesterol LDL Cholesterol Direct HDL Cholesterol 25-OH Vitamin D Total PTH Intact Urine pH Urine WBC (Auto) Urine Creatinine Urine Total Protein Fluid Total Protein Vancomycin Trough Rheumatoid Factor Complement C4 Miscellaneous Test Crossmatch 02/08/17 02/09/17 02/09/17 17:36 05:44 11:30 WBC RBC Hgb Hct MCV MCH MCHC RDW Plt Count Lymph % (Auto) [place] % (Auto) Lymph # [place] # Baso # Seg Neutrophils % Seg Neuts % (Manual) Lymphocytes % (Manual) Monocytes % (Manual) Eosinophils % (Manual) Basophils % (Manual) Nucleated RBC % Seg Neutrophils # Seg Neutrophils # Man Lymphocytes # (Manual) Monocytes # (Manual) Eosinophils # (Manual) Basophils # (Manual) PT INR Fibrinogen dRVVT Confirm Interp Factor V Activity POC ABG pH POC ABG pCO2 POC ABG pO2 ABG pO2 ABG HCO3 ABG Base Excess ABG Hemoglobin Oxyhemoglobin Sodium Potassium Chloride Carbon Dioxide BUN Creatinine Glucose POC Glucose 125 H 117 H 120 H Lactic Acid Calcium Ionized Calcium Phosphorus Magnesium Direct Bilirubin AST ALT Alkaline Phosphatase Lactate Dehydrogenase Troponin T C-Reactive Protein Total Protein Albumin Prealbumin Triglycerides Cholesterol LDL Cholesterol Direct HDL Cholesterol 25-OH Vitamin D Total PTH Intact Urine pH Urine WBC (Auto) Urine Creatinine Urine Total Protein Fluid Total Protein Vancomycin Trough Rheumatoid Factor Complement C4 Miscellaneous Test Crossmatch 02/09/17 02/10/17 02/10/17 23:45 05:45 05:50 WBC RBC Hgb Hct MCV MCH MCHC RDW Plt Count Lymph % (Auto) [place] % (Auto) Lymph # [place] # Baso # Seg Neutrophils % Seg Neuts % (Manual) Lymphocytes % (Manual) Monocytes % (Manual) Eosinophils % (Manual) Basophils % (Manual) Nucleated RBC % Seg Neutrophils # Seg Neutrophils # Man Lymphocytes # (Manual) Monocytes # (Manual) Eosinophils # (Manual) Basophils # (Manual) PT INR Fibrinogen dRVVT Confirm Interp Factor V Activity POC ABG pH POC ABG pCO2 POC ABG pO2 ABG pO2 ABG HCO3 ABG Base Excess ABG Hemoglobin Oxyhemoglobin Sodium Potassium Chloride Carbon Dioxide BUN 85 H Creatinine 1.8 H Glucose 109 H POC Glucose 114 H 189 H Lactic Acid Calcium Ionized Calcium Phosphorus Magnesium 2.50 H Direct Bilirubin AST ALT Alkaline Phosphatase Lactate Dehydrogenase Troponin T C-Reactive Protein Total Protein Albumin Prealbumin Triglycerides Cholesterol LDL Cholesterol Direct HDL Cholesterol 25-OH Vitamin D Total PTH Intact Urine pH Urine WBC (Auto) Urine Creatinine Urine Total Protein Fluid Total Protein Vancomycin Trough Rheumatoid Factor Complement C4 Miscellaneous Test Crossmatch 02/10/17 02/10/17 02/10/17 05:51 11:55 17:42 WBC RBC Hgb Hct MCV MCH MCHC RDW Plt Count Lymph % (Auto) [place] % (Auto) Lymph # [place] # Baso # Seg Neutrophils % Seg Neuts % (Manual) Lymphocytes % (Manual) Monocytes % (Manual) Eosinophils % (Manual) Basophils % (Manual) Nucleated RBC % Seg Neutrophils # Seg Neutrophils # Man Lymphocytes # (Manual) Monocytes # (Manual) Eosinophils # (Manual) Basophils # (Manual) PT INR Fibrinogen dRVVT Confirm Interp Factor V Activity POC ABG pH POC ABG pCO2 POC ABG pO2 ABG pO2 ABG HCO3 ABG Base Excess ABG Hemoglobin Oxyhemoglobin Sodium Potassium Chloride Carbon Dioxide BUN Creatinine Glucose POC Glucose 106 H 146 H 132 H Lactic Acid Calcium Ionized Calcium Phosphorus Magnesium Direct Bilirubin AST ALT Alkaline Phosphatase Lactate Dehydrogenase Troponin T C-Reactive Protein Total Protein Albumin Prealbumin Triglycerides Cholesterol LDL Cholesterol Direct HDL Cholesterol 25-OH Vitamin D Total PTH Intact Urine pH Urine WBC (Auto) Urine Creatinine Urine Total Protein Fluid Total Protein Vancomycin Trough Rheumatoid Factor Complement C4 Miscellaneous Test Crossmatch 02/10/17 02/11/17 02/11/17 23:43 04:08 05:34 WBC RBC Hgb Hct MCV MCH MCHC RDW Plt Count Lymph % (Auto) [place] % (Auto) Lymph # [place] # Baso # Seg Neutrophils % Seg Neuts % (Manual) Lymphocytes % (Manual) Monocytes % (Manual) Eosinophils % (Manual) Basophils % (Manual) Nucleated RBC % Seg Neutrophils # Seg Neutrophils # Man Lymphocytes # (Manual) Monocytes # (Manual) Eosinophils # (Manual) Basophils # (Manual) PT INR Fibrinogen dRVVT Confirm Interp Factor V Activity POC ABG pH POC ABG pCO2 POC ABG pO2 ABG pO2 ABG HCO3 ABG Base Excess ABG Hemoglobin Oxyhemoglobin Sodium 136 L Potassium Chloride Carbon Dioxide BUN 65 H Creatinine 1.7 H Glucose 105 H POC Glucose 130 H 113 H Lactic Acid Calcium Ionized Calcium Phosphorus Magnesium Direct Bilirubin AST ALT Alkaline Phosphatase Lactate Dehydrogenase Troponin T C-Reactive Protein Total Protein Albumin Prealbumin Triglycerides Cholesterol LDL Cholesterol Direct HDL Cholesterol 25-OH Vitamin D Total PTH Intact Urine pH Urine WBC (Auto) Urine Creatinine Urine Total Protein Fluid Total Protein Vancomycin Trough Rheumatoid Factor Complement C4 Miscellaneous Test Crossmatch 02/11/17 02/11/17 02/12/17 11:56 23:18 06:19 WBC RBC Hgb Hct MCV MCH MCHC RDW Plt Count Lymph % (Auto) [place] % (Auto) Lymph # [place] # Baso # Seg Neutrophils % Seg Neuts % (Manual) Lymphocytes % (Manual) Monocytes % (Manual) Eosinophils % (Manual) Basophils % (Manual) Nucleated RBC % Seg Neutrophils # Seg Neutrophils # Man Lymphocytes # (Manual) Monocytes # (Manual) Eosinophils # (Manual) Basophils # (Manual) PT INR Fibrinogen dRVVT Confirm Interp Factor V Activity POC ABG pH POC ABG pCO2 POC ABG pO2 ABG pO2 ABG HCO3 ABG Base Excess ABG Hemoglobin Oxyhemoglobin Sodium 136 L Potassium Chloride 97.1 L Carbon Dioxide BUN 93 H Creatinine 2.4 H Glucose POC Glucose 126 H 119 H Lactic Acid Calcium 11.0 H Ionized Calcium Phosphorus Magnesium Direct Bilirubin AST ALT Alkaline Phosphatase Lactate Dehydrogenase Troponin T C-Reactive Protein Total Protein Albumin Prealbumin Triglycerides Cholesterol LDL Cholesterol Direct HDL Cholesterol 25-OH Vitamin D Total PTH Intact Urine pH Urine WBC (Auto) Urine Creatinine Urine Total Protein Fluid Total Protein Vancomycin Trough Rheumatoid Factor Complement C4 Miscellaneous Test Crossmatch 02/12/17 02/12/17 02/12/17 08:00 10:25 11:42 WBC 15.4 H RBC 2.63 L Hgb 6.9 L Hct 22.6 L MCV MCH 26 L MCHC RDW 20.5 H Plt Count Lymph % (Auto) [place] % (Auto) Lymph # [place] # Baso # Seg Neutrophils % Seg Neuts % (Manual) Lymphocytes % (Manual) Monocytes % (Manual) Eosinophils % (Manual) Basophils % (Manual) Nucleated RBC % Seg Neutrophils # Seg Neutrophils # Man Lymphocytes # (Manual) Monocytes # (Manual) Eosinophils # (Manual) Basophils # (Manual) PT INR Fibrinogen dRVVT Confirm Interp Factor V Activity POC ABG pH POC ABG pCO2 POC ABG pO2 ABG pO2 ABG HCO3 ABG Base Excess ABG Hemoglobin Oxyhemoglobin Sodium Potassium Chloride Carbon Dioxide BUN Creatinine Glucose POC Glucose 142 H Lactic Acid Calcium Ionized Calcium Phosphorus Magnesium Direct Bilirubin AST ALT Alkaline Phosphatase Lactate Dehydrogenase Troponin T C-Reactive Protein Total Protein Albumin Prealbumin Triglycerides Cholesterol LDL Cholesterol Direct HDL Cholesterol 25-OH Vitamin D Total PTH Intact Urine pH Urine WBC (Auto) Urine Creatinine Urine Total Protein Fluid Total Protein Vancomycin Trough Rheumatoid Factor Complement C4 Miscellaneous Test Crossmatch See Detail 02/12/17 02/13/17 02/13/17 18:04 00:04 05:00 WBC RBC Hgb Hct MCV MCH MCHC RDW Plt Count Lymph % (Auto) [place] % (Auto) Lymph # [place] # Baso # Seg Neutrophils % Seg Neuts % (Manual) Lymphocytes % (Manual) Monocytes % (Manual) Eosinophils % (Manual) Basophils % (Manual) Nucleated RBC % Seg Neutrophils # Seg Neutrophils # Man Lymphocytes # (Manual) Monocytes # (Manual) Eosinophils # (Manual) Basophils # (Manual) PT INR Fibrinogen dRVVT Confirm Interp Factor V Activity POC ABG pH POC ABG pCO2 POC ABG pO2 ABG pO2 ABG HCO3 ABG Base Excess ABG Hemoglobin Oxyhemoglobin Sodium 134 L Potassium Chloride 96.1 L Carbon Dioxide 20 L BUN 125 H Creatinine 3.0 H Glucose 111 H POC Glucose 135 H 109 H Lactic Acid Calcium 11.3 H Ionized Calcium Phosphorus Magnesium Direct Bilirubin AST ALT Alkaline Phosphatase Lactate Dehydrogenase Troponin T C-Reactive Protein Total Protein Albumin Prealbumin Triglycerides Cholesterol LDL Cholesterol Direct HDL Cholesterol 25-OH Vitamin D Total PTH Intact Urine pH Urine WBC (Auto) Urine Creatinine Urine Total Protein Fluid Total Protein Vancomycin Trough Rheumatoid Factor Complement C4 Miscellaneous Test Crossmatch 02/13/17 02/13/17 02/13/17 05:00 05:28 12:03 WBC 11.9 H RBC 2.92 L Hgb 7.8 L Hct 25.2 L MCV MCH 27 L MCHC RDW 19.3 H Plt Count Lymph % (Auto) [place] % (Auto) Lymph # [place] # Baso # Seg Neutrophils % Seg Neuts % (Manual) Lymphocytes % (Manual) Monocytes % (Manual) Eosinophils % (Manual) Basophils % (Manual) Nucleated RBC % Seg Neutrophils # Seg Neutrophils # Man Lymphocytes # (Manual) Monocytes # (Manual) Eosinophils # (Manual) Basophils # (Manual) PT INR Fibrinogen dRVVT Confirm Interp Factor V Activity POC ABG pH POC ABG pCO2 POC ABG pO2 ABG pO2 ABG HCO3 ABG Base Excess ABG Hemoglobin Oxyhemoglobin Sodium Potassium Chloride Carbon Dioxide BUN Creatinine Glucose POC Glucose 124 H 160 H Lactic Acid Calcium Ionized Calcium Phosphorus Magnesium Direct Bilirubin AST ALT Alkaline Phosphatase Lactate Dehydrogenase Troponin T C-Reactive Protein Total Protein Albumin Prealbumin Triglycerides Cholesterol LDL Cholesterol Direct HDL Cholesterol 25-OH Vitamin D Total PTH Intact Urine pH Urine WBC (Auto) Urine Creatinine Urine Total Protein Fluid Total Protein Vancomycin Trough Rheumatoid Factor Complement C4 Miscellaneous Test Crossmatch 02/13/17 02/14/17 02/14/17 18:09 06:16 08:08 WBC 15.2 H RBC 2.97 L Hgb 8.1 L Hct 26.3 L MCV MCH MCHC RDW 19.3 H Plt Count Lymph % (Auto) [place] % (Auto) Lymph # [place] # Baso # Seg Neutrophils % Seg Neuts % (Manual) Lymphocytes % (Manual) Monocytes % (Manual) Eosinophils % (Manual) Basophils % (Manual) Nucleated RBC % Seg Neutrophils # Seg Neutrophils # Man Lymphocytes # (Manual) Monocytes # (Manual) Eosinophils # (Manual) Basophils # (Manual) PT INR Fibrinogen dRVVT Confirm Interp Factor V Activity POC ABG pH POC ABG pCO2 POC ABG pO2 ABG pO2 ABG HCO3 ABG Base Excess ABG Hemoglobin Oxyhemoglobin Sodium Potassium Chloride Carbon Dioxide BUN Creatinine Glucose POC Glucose 110 H 112 H Lactic Acid Calcium Ionized Calcium Phosphorus Magnesium Direct Bilirubin AST ALT Alkaline Phosphatase Lactate Dehydrogenase Troponin T C-Reactive Protein Total Protein Albumin Prealbumin Triglycerides Cholesterol LDL Cholesterol Direct HDL Cholesterol 25-OH Vitamin D Total PTH Intact Urine pH Urine WBC (Auto) Urine Creatinine Urine Total Protein Fluid Total Protein Vancomycin Trough Rheumatoid Factor Complement C4 Miscellaneous Test Crossmatch 02/14/17 02/14/17 02/15/17 08:08 17:41 04:15 WBC RBC Hgb Hct MCV MCH MCHC RDW Plt Count Lymph % (Auto) [place] % (Auto) Lymph # [place] # Baso # Seg Neutrophils % Seg Neuts % (Manual) Lymphocytes % (Manual) Monocytes % (Manual) Eosinophils % (Manual) Basophils % (Manual) Nucleated RBC % Seg Neutrophils # Seg Neutrophils # Man Lymphocytes # (Manual) Monocytes # (Manual) Eosinophils # (Manual) Basophils # (Manual) PT INR Fibrinogen dRVVT Confirm Interp Factor V Activity POC ABG pH POC ABG pCO2 POC ABG pO2 ABG pO2 ABG HCO3 ABG Base Excess ABG Hemoglobin Oxyhemoglobin Sodium Potassium Chloride Carbon Dioxide 18 L 21 L BUN 79 H 113 H Creatinine 2.1 H 2.8 H Glucose POC Glucose 118 H Lactic Acid Calcium 10.7 H Ionized Calcium Phosphorus 1.70 L D Magnesium 1.60 L Direct Bilirubin AST ALT Alkaline Phosphatase Lactate Dehydrogenase Troponin T C-Reactive Protein Total Protein Albumin Prealbumin Triglycerides Cholesterol LDL Cholesterol Direct HDL Cholesterol 25-OH Vitamin D Total PTH Intact Urine pH Urine WBC (Auto) Urine Creatinine Urine Total Protein Fluid Total Protein Vancomycin Trough Rheumatoid Factor Complement C4 Miscellaneous Test Crossmatch 02/15/17 02/15/17 02/15/17 06:06 11:31 17:52 WBC RBC Hgb Hct MCV MCH MCHC RDW Plt Count Lymph % (Auto) [place] % (Auto) Lymph # [place] # Baso # Seg Neutrophils % Seg Neuts % (Manual) Lymphocytes % (Manual) Monocytes % (Manual) Eosinophils % (Manual) Basophils % (Manual) Nucleated RBC % Seg Neutrophils # Seg Neutrophils # Man Lymphocytes # (Manual) Monocytes # (Manual) Eosinophils # (Manual) Basophils # (Manual) PT INR Fibrinogen dRVVT Confirm Interp Factor V Activity POC ABG pH POC ABG pCO2 POC ABG pO2 ABG pO2 ABG HCO3 ABG Base Excess ABG Hemoglobin Oxyhemoglobin Sodium Potassium Chloride Carbon Dioxide BUN Creatinine Glucose POC Glucose 115 H 129 H 201 H Lactic Acid Calcium Ionized Calcium Phosphorus Magnesium Direct Bilirubin AST ALT Alkaline Phosphatase Lactate Dehydrogenase Troponin T C-Reactive Protein Total Protein Albumin Prealbumin Triglycerides Cholesterol LDL Cholesterol Direct HDL Cholesterol 25-OH Vitamin D Total PTH Intact Urine pH Urine WBC (Auto) Urine Creatinine Urine Total Protein Fluid Total Protein Vancomycin Trough Rheumatoid Factor Complement C4 Miscellaneous Test Crossmatch 02/15/17 02/15/17 02/15/17 19:08 19:08 19:08 WBC RBC Hgb Hct MCV MCH MCHC RDW Plt Count Lymph % (Auto) [place] % (Auto) Lymph # [place] # Baso # Seg Neutrophils % Seg Neuts % (Manual) Lymphocytes % (Manual) Monocytes % (Manual) Eosinophils % (Manual) Basophils % (Manual) Nucleated RBC % Seg Neutrophils # Seg Neutrophils # Man Lymphocytes # (Manual) Monocytes # (Manual) Eosinophils # (Manual) Basophils # (Manual) PT INR Fibrinogen dRVVT Confirm Interp Factor V Activity POC ABG pH POC ABG pCO2 POC ABG pO2 ABG pO2 ABG HCO3 ABG Base Excess ABG Hemoglobin Oxyhemoglobin Sodium Potassium Chloride Carbon Dioxide BUN Creatinine Glucose POC Glucose Lactic Acid Calcium Ionized Calcium 6.0 H Phosphorus Magnesium Direct Bilirubin AST ALT Alkaline Phosphatase Lactate Dehydrogenase Troponin T C-Reactive Protein Total Protein Albumin Prealbumin Triglycerides Cholesterol LDL Cholesterol Direct HDL Cholesterol 25-OH Vitamin D Total 13 L PTH Intact 10.88 L Urine pH Urine WBC (Auto) Urine Creatinine Urine Total Protein Fluid Total Protein Vancomycin Trough Rheumatoid Factor Complement C4 Miscellaneous Test Crossmatch 02/16/17 02/16/17 02/16/17 05:12 06:00 12:39 WBC RBC Hgb Hct MCV MCH MCHC RDW Plt Count Lymph % (Auto) [place] % (Auto) Lymph # [place] # Baso # Seg Neutrophils % Seg Neuts % (Manual) Lymphocytes % (Manual) Monocytes % (Manual) Eosinophils % (Manual) Basophils % (Manual) Nucleated RBC % Seg Neutrophils # Seg Neutrophils # Man Lymphocytes # (Manual) Monocytes # (Manual) Eosinophils # (Manual) Basophils # (Manual) PT INR Fibrinogen dRVVT Confirm Interp Factor V Activity POC ABG pH POC ABG pCO2 POC ABG pO2 ABG pO2 ABG HCO3 ABG Base Excess ABG Hemoglobin Oxyhemoglobin Sodium Potassium Chloride Carbon Dioxide BUN 74 H Creatinine 1.7 H Glucose 102 H POC Glucose 125 H 109 H Lactic Acid Calcium Ionized Calcium Phosphorus 2.10 L D Magnesium Direct Bilirubin AST ALT Alkaline Phosphatase Lactate Dehydrogenase Troponin T C-Reactive Protein Total Protein Albumin Prealbumin Triglycerides Cholesterol LDL Cholesterol Direct HDL Cholesterol 25-OH Vitamin D Total PTH Intact Urine pH Urine WBC (Auto) Urine Creatinine Urine Total Protein Fluid Total Protein Vancomycin Trough Rheumatoid Factor Complement C4 Miscellaneous Test Crossmatch 02/16/17 02/16/17 02/17/17 17:31 23:57 05:30 WBC RBC Hgb Hct MCV MCH MCHC RDW Plt Count Lymph % (Auto) [place] % (Auto) Lymph # [place] # Baso # Seg Neutrophils % Seg Neuts % (Manual) Lymphocytes % (Manual) Monocytes % (Manual) Eosinophils % (Manual) Basophils % (Manual) Nucleated RBC % Seg Neutrophils # Seg Neutrophils # Man Lymphocytes # (Manual) Monocytes # (Manual) Eosinophils # (Manual) Basophils # (Manual) PT INR Fibrinogen dRVVT Confirm Interp Factor V Activity POC ABG pH POC ABG pCO2 POC ABG pO2 ABG pO2 ABG HCO3 ABG Base Excess ABG Hemoglobin Oxyhemoglobin Sodium Potassium Chloride Carbon Dioxide BUN Creatinine Glucose POC Glucose 106 H 127 H 122 H Lactic Acid Calcium Ionized Calcium Phosphorus Magnesium Direct Bilirubin AST ALT Alkaline Phosphatase Lactate Dehydrogenase Troponin T C-Reactive Protein Total Protein Albumin Prealbumin Triglycerides Cholesterol LDL Cholesterol Direct HDL Cholesterol 25-OH Vitamin D Total PTH Intact Urine pH Urine WBC (Auto) Urine Creatinine Urine Total Protein Fluid Total Protein Vancomycin Trough Rheumatoid Factor Complement C4 Miscellaneous Test Crossmatch 02/17/17 02/17/17 02/17/17 06:00 12:17 17:57 WBC RBC Hgb Hct MCV MCH MCHC RDW Plt Count Lymph % (Auto) [place] % (Auto) Lymph # [place] # Baso # Seg Neutrophils % Seg Neuts % (Manual) Lymphocytes % (Manual) Monocytes % (Manual) Eosinophils % (Manual) Basophils % (Manual) Nucleated RBC % Seg Neutrophils # Seg Neutrophils # Man Lymphocytes # (Manual) Monocytes # (Manual) Eosinophils # (Manual) Basophils # (Manual) PT INR Fibrinogen dRVVT Confirm Interp Factor V Activity POC ABG pH POC ABG pCO2 POC ABG pO2 ABG pO2 ABG HCO3 ABG Base Excess ABG Hemoglobin Oxyhemoglobin Sodium Potassium Chloride Carbon Dioxide BUN 94 H Creatinine 2.3 H Glucose 106 H POC Glucose 173 H 140 H Lactic Acid Calcium Ionized Calcium Phosphorus Magnesium Direct Bilirubin AST ALT Alkaline Phosphatase Lactate Dehydrogenase Troponin T C-Reactive Protein Total Protein Albumin Prealbumin Triglycerides Cholesterol LDL Cholesterol Direct HDL Cholesterol 25-OH Vitamin D Total PTH Intact Urine pH Urine WBC (Auto) Urine Creatinine Urine Total Protein Fluid Total Protein Vancomycin Trough Rheumatoid Factor Complement C4 Miscellaneous Test Crossmatch 02/18/17 02/18/17 02/18/17 00:20 05:30 06:14 WBC RBC Hgb Hct MCV MCH MCHC RDW Plt Count Lymph % (Auto) [place] % (Auto) Lymph # [place] # Baso # Seg Neutrophils % Seg Neuts % (Manual) Lymphocytes % (Manual) Monocytes % (Manual) Eosinophils % (Manual) Basophils % (Manual) Nucleated RBC % Seg Neutrophils # Seg Neutrophils # Man Lymphocytes # (Manual) Monocytes # (Manual) Eosinophils # (Manual) Basophils # (Manual) PT INR Fibrinogen dRVVT Confirm Interp Factor V Activity POC ABG pH POC ABG pCO2 POC ABG pO2 ABG pO2 ABG HCO3 ABG Base Excess ABG Hemoglobin Oxyhemoglobin Sodium 136 L Potassium Chloride 97.5 L Carbon Dioxide BUN 73 H Creatinine 1.9 H Glucose POC Glucose 132 H 106 H Lactic Acid Calcium Ionized Calcium Phosphorus Magnesium Direct Bilirubin AST ALT Alkaline Phosphatase Lactate Dehydrogenase Troponin T C-Reactive Protein Total Protein Albumin Prealbumin Triglycerides Cholesterol LDL Cholesterol Direct HDL Cholesterol 25-OH Vitamin D Total PTH Intact Urine pH Urine WBC (Auto) Urine Creatinine Urine Total Protein Fluid Total Protein Vancomycin Trough Rheumatoid Factor Complement C4 Miscellaneous Test Crossmatch 02/18/17 02/18/17 02/18/17 09:51 11:32 17:59 WBC 13.1 H RBC 2.77 L Hgb 7.6 L Hct 23.9 L MCV MCH MCHC RDW 19.0 H Plt Count Lymph % (Auto) [place] % (Auto) 11.1 H Lymph # [place] # 1.5 H Baso # Seg Neutrophils % Seg Neuts % (Manual) Lymphocytes % (Manual) Monocytes % (Manual) Eosinophils % (Manual) Basophils % (Manual) Nucleated RBC % Seg Neutrophils # 9.1 H Seg Neutrophils # Man Lymphocytes # (Manual) Monocytes # (Manual) Eosinophils # (Manual) Basophils # (Manual) PT INR Fibrinogen dRVVT Confirm Interp Factor V Activity POC ABG pH POC ABG pCO2 POC ABG pO2 ABG pO2 ABG HCO3 ABG Base Excess ABG Hemoglobin Oxyhemoglobin Sodium Potassium Chloride Carbon Dioxide BUN Creatinine Glucose POC Glucose 123 H 119 H Lactic Acid Calcium Ionized Calcium Phosphorus Magnesium Direct Bilirubin AST ALT Alkaline Phosphatase Lactate Dehydrogenase Troponin T C-Reactive Protein Total Protein Albumin Prealbumin Triglycerides Cholesterol LDL Cholesterol Direct HDL Cholesterol 25-OH Vitamin D Total PTH Intact Urine pH Urine WBC (Auto) Urine Creatinine Urine Total Protein Fluid Total Protein Vancomycin Trough Rheumatoid Factor Complement C4 Miscellaneous Test Crossmatch 02/18/17 02/19/17 02/19/17 23:47 05:36 09:45 WBC RBC Hgb Hct MCV MCH 27 L MCHC RDW 19.2 H Plt Count Lymph % (Auto) [place] % (Auto) Lymph # [place] # Baso # Seg Neutrophils % Seg Neuts % (Manual) Lymphocytes % (Manual) Monocytes % (Manual) Eosinophils % (Manual) Basophils % (Manual) Nucleated RBC % Seg Neutrophils # Seg Neutrophils # Man Lymphocytes # (Manual) Monocytes # (Manual) Eosinophils # (Manual) Basophils # (Manual) PT INR Fibrinogen dRVVT Confirm Interp Factor V Activity POC ABG pH POC ABG pCO2 POC ABG pO2 ABG pO2 ABG HCO3 ABG Base Excess ABG Hemoglobin Oxyhemoglobin Sodium Potassium Chloride Carbon Dioxide BUN Creatinine Glucose POC Glucose 110 H 121 H Lactic Acid Calcium Ionized Calcium Phosphorus Magnesium Direct Bilirubin AST ALT Alkaline Phosphatase Lactate Dehydrogenase Troponin T C-Reactive Protein Total Protein Albumin Prealbumin Triglycerides Cholesterol LDL Cholesterol Direct HDL Cholesterol 25-OH Vitamin D Total PTH Intact Urine pH Urine WBC (Auto) Urine Creatinine Urine Total Protein Fluid Total Protein Vancomycin Trough Rheumatoid Factor Complement C4 Miscellaneous Test Crossmatch 02/19/17 02/20/17 02/20/17 09:45 00:10 06:15 WBC RBC Hgb Hct MCV MCH MCHC RDW Plt Count Lymph % (Auto) [place] % (Auto) Lymph # [place] # Baso # Seg Neutrophils % Seg Neuts % (Manual) Lymphocytes % (Manual) Monocytes % (Manual) Eosinophils % (Manual) Basophils % (Manual) Nucleated RBC % Seg Neutrophils # Seg Neutrophils # Man Lymphocytes # (Manual) Monocytes # (Manual) Eosinophils # (Manual) Basophils # (Manual) PT INR Fibrinogen dRVVT Confirm Interp Factor V Activity POC ABG pH POC ABG pCO2 POC ABG pO2 ABG pO2 ABG HCO3 ABG Base Excess ABG Hemoglobin Oxyhemoglobin Sodium 136 L Potassium 5.1 H Chloride 97.6 L Carbon Dioxide 20 L 18 L BUN 110 H 135 H Creatinine 2.6 H 3.2 H Glucose 106 H 110 H POC Glucose 117 H Lactic Acid Calcium Ionized Calcium Phosphorus 4.70 H D 5.60 H Magnesium Direct Bilirubin AST ALT Alkaline Phosphatase Lactate Dehydrogenase Troponin T C-Reactive Protein Total Protein Albumin Prealbumin Triglycerides Cholesterol LDL Cholesterol Direct HDL Cholesterol 25-OH Vitamin D Total PTH Intact Urine pH Urine WBC (Auto) Urine Creatinine Urine Total Protein Fluid Total Protein Vancomycin Trough Rheumatoid Factor Complement C4 Miscellaneous Test Crossmatch 02/20/17 02/20/17 02/21/17 11:30 17:51 00:14 WBC RBC Hgb Hct MCV MCH MCHC RDW Plt Count Lymph % (Auto) [place] % (Auto) Lymph # [place] # Baso # Seg Neutrophils % Seg Neuts % (Manual) Lymphocytes % (Manual) Monocytes % (Manual) Eosinophils % (Manual) Basophils % (Manual) Nucleated RBC % Seg Neutrophils # Seg Neutrophils # Man Lymphocytes # (Manual) Monocytes # (Manual) Eosinophils # (Manual) Basophils # (Manual) PT INR Fibrinogen dRVVT Confirm Interp Factor V Activity POC ABG pH POC ABG pCO2 POC ABG pO2 ABG pO2 ABG HCO3 ABG Base Excess ABG Hemoglobin Oxyhemoglobin Sodium Potassium Chloride Carbon Dioxide BUN Creatinine Glucose POC Glucose 173 H 133 H 125 H Lactic Acid Calcium Ionized Calcium Phosphorus Magnesium Direct Bilirubin AST ALT Alkaline Phosphatase Lactate Dehydrogenase Troponin T C-Reactive Protein Total Protein Albumin Prealbumin Triglycerides Cholesterol LDL Cholesterol Direct HDL Cholesterol 25-OH Vitamin D Total PTH Intact Urine pH Urine WBC (Auto) Urine Creatinine Urine Total Protein Fluid Total Protein Vancomycin Trough Rheumatoid Factor Complement C4 Miscellaneous Test Crossmatch 02/21/17 02/21/17 02/21/17 04:09 05:03 11:58 WBC RBC Hgb Hct MCV MCH MCHC RDW Plt Count Lymph % (Auto) [place] % (Auto) Lymph # [place] # Baso # Seg Neutrophils % Seg Neuts % (Manual) Lymphocytes % (Manual) Monocytes % (Manual) Eosinophils % (Manual) Basophils % (Manual) Nucleated RBC % Seg Neutrophils # Seg Neutrophils # Man Lymphocytes # (Manual) Monocytes # (Manual) Eosinophils # (Manual) Basophils # (Manual) PT INR Fibrinogen dRVVT Confirm Interp Factor V Activity POC ABG pH POC ABG pCO2 POC ABG pO2 ABG pO2 ABG HCO3 ABG Base Excess ABG Hemoglobin Oxyhemoglobin Sodium 135 L Potassium Chloride Carbon Dioxide 20 L BUN 76 H Creatinine 2.0 H Glucose 125 H POC Glucose 134 H 139 H Lactic Acid Calcium Ionized Calcium Phosphorus Magnesium Direct Bilirubin AST ALT Alkaline Phosphatase Lactate Dehydrogenase Troponin T C-Reactive Protein Total Protein Albumin Prealbumin Triglycerides Cholesterol LDL Cholesterol Direct HDL Cholesterol 25-OH Vitamin D Total PTH Intact Urine pH Urine WBC (Auto) Urine Creatinine Urine Total Protein Fluid Total Protein Vancomycin Trough Rheumatoid Factor Complement C4 Miscellaneous Test Crossmatch 02/21/17 02/21/17 02/22/17 17:16 23:41 04:10 WBC RBC Hgb Hct MCV MCH MCHC RDW Plt Count Lymph % (Auto) [place] % (Auto) Lymph # [place] # Baso # Seg Neutrophils % Seg Neuts % (Manual) Lymphocytes % (Manual) Monocytes % (Manual) Eosinophils % (Manual) Basophils % (Manual) Nucleated RBC % Seg Neutrophils # Seg Neutrophils # Man Lymphocytes # (Manual) Monocytes # (Manual) Eosinophils # (Manual) Basophils # (Manual) PT INR Fibrinogen dRVVT Confirm Interp Factor V Activity POC ABG pH POC ABG pCO2 POC ABG pO2 ABG pO2 ABG HCO3 ABG Base Excess ABG Hemoglobin Oxyhemoglobin Sodium 135 L Potassium Chloride 97.7 L Carbon Dioxide 21 L BUN 101 H Creatinine 2.5 H Glucose 116 H POC Glucose 120 H 128 H Lactic Acid Calcium Ionized Calcium Phosphorus Magnesium Direct Bilirubin AST ALT Alkaline Phosphatase Lactate Dehydrogenase Troponin T C-Reactive Protein Total Protein Albumin 1.3 L Prealbumin Triglycerides Cholesterol LDL Cholesterol Direct HDL Cholesterol 25-OH Vitamin D Total PTH Intact Urine pH Urine WBC (Auto) Urine Creatinine Urine Total Protein Fluid Total Protein Vancomycin Trough Rheumatoid Factor Complement C4 Miscellaneous Test Crossmatch 02/22/17 02/22/17 02/22/17 06:03 11:38 18:19 WBC RBC Hgb Hct MCV MCH MCHC RDW Plt Count Lymph % (Auto) [place] % (Auto) Lymph # [place] # Baso # Seg Neutrophils % Seg Neuts % (Manual) Lymphocytes % (Manual) Monocytes % (Manual) Eosinophils % (Manual) Basophils % (Manual) Nucleated RBC % Seg Neutrophils # Seg Neutrophils # Man Lymphocytes # (Manual) Monocytes # (Manual) Eosinophils # (Manual) Basophils # (Manual) PT INR Fibrinogen dRVVT Confirm Interp Factor V Activity POC ABG pH POC ABG pCO2 POC ABG pO2 ABG pO2 ABG HCO3 ABG Base Excess ABG Hemoglobin Oxyhemoglobin Sodium Potassium Chloride Carbon Dioxide BUN Creatinine Glucose POC Glucose 126 H 147 H 121 H Lactic Acid Calcium Ionized Calcium Phosphorus Magnesium Direct Bilirubin AST ALT Alkaline Phosphatase Lactate Dehydrogenase Troponin T C-Reactive Protein Total Protein Albumin Prealbumin Triglycerides Cholesterol LDL Cholesterol Direct HDL Cholesterol 25-OH Vitamin D Total PTH Intact Urine pH Urine WBC (Auto) Urine Creatinine Urine Total Protein Fluid Total Protein Vancomycin Trough Rheumatoid Factor Complement C4 Miscellaneous Test Crossmatch 02/23/17 02/23/17 02/23/17 05:00 05:46 12:27 WBC RBC Hgb Hct MCV MCH MCHC RDW Plt Count Lymph % (Auto) [place] % (Auto) Lymph # [place] # Baso # Seg Neutrophils % Seg Neuts % (Manual) Lymphocytes % (Manual) Monocytes % (Manual) Eosinophils % (Manual) Basophils % (Manual) Nucleated RBC % Seg Neutrophils # Seg Neutrophils # Man Lymphocytes # (Manual) Monocytes # (Manual) Eosinophils # (Manual) Basophils # (Manual) PT INR Fibrinogen dRVVT Confirm Interp Factor V Activity POC ABG pH POC ABG pCO2 POC ABG pO2 ABG pO2 ABG HCO3 ABG Base Excess ABG Hemoglobin Oxyhemoglobin Sodium 136 L Potassium Chloride 97.1 L Carbon Dioxide BUN 50 H Creatinine 1.5 H Glucose POC Glucose 110 H 115 H Lactic Acid Calcium 8.1 L Ionized Calcium Phosphorus 1.90 L D Magnesium Direct Bilirubin AST ALT Alkaline Phosphatase Lactate Dehydrogenase Troponin T C-Reactive Protein Total Protein Albumin Prealbumin Triglycerides Cholesterol LDL Cholesterol Direct HDL Cholesterol 25-OH Vitamin D Total PTH Intact Urine pH Urine WBC (Auto) Urine Creatinine Urine Total Protein Fluid Total Protein Vancomycin Trough Rheumatoid Factor Complement C4 Miscellaneous Test Crossmatch 02/23/17 02/23/17 02/24/17 18:02 23:18 05:04 WBC RBC Hgb Hct MCV MCH MCHC RDW Plt Count Lymph % (Auto) [place] % (Auto) Lymph # [place] # Baso # Seg Neutrophils % Seg Neuts % (Manual) Lymphocytes % (Manual) Monocytes % (Manual) Eosinophils % (Manual) Basophils % (Manual) Nucleated RBC % Seg Neutrophils # Seg Neutrophils # Man Lymphocytes # (Manual) Monocytes # (Manual) Eosinophils # (Manual) Basophils # (Manual) PT INR Fibrinogen dRVVT Confirm Interp Factor V Activity POC ABG pH POC ABG pCO2 POC ABG pO2 ABG pO2 ABG HCO3 ABG Base Excess ABG Hemoglobin Oxyhemoglobin Sodium Potassium Chloride Carbon Dioxide BUN Creatinine Glucose POC Glucose 111 H 126 H 121 H Lactic Acid Calcium Ionized Calcium Phosphorus Magnesium Direct Bilirubin AST ALT Alkaline Phosphatase Lactate Dehydrogenase Troponin T C-Reactive Protein Total Protein Albumin Prealbumin Triglycerides Cholesterol LDL Cholesterol Direct HDL Cholesterol 25-OH Vitamin D Total PTH Intact Urine pH Urine WBC (Auto) Urine Creatinine Urine Total Protein Fluid Total Protein Vancomycin Trough Rheumatoid Factor Complement C4 Miscellaneous Test Crossmatch 02/24/17 02/24/17 02/24/17 05:20 10:05 11:34 WBC RBC 2.95 L Hgb 8.4 L Hct 25.7 L MCV MCH MCHC RDW 20.8 H Plt Count Lymph % (Auto) [place] % (Auto) Lymph # [place] # Baso # Seg Neutrophils % 71.8 H Seg Neuts % (Manual) Lymphocytes % (Manual) Monocytes % (Manual) Eosinophils % (Manual) Basophils % (Manual) Nucleated RBC % Seg Neutrophils # Seg Neutrophils # Man Lymphocytes # (Manual) Monocytes # (Manual) Eosinophils # (Manual) Basophils # (Manual) PT INR Fibrinogen dRVVT Confirm Interp Factor V Activity POC ABG pH POC ABG pCO2 POC ABG pO2 ABG pO2 ABG HCO3 ABG Base Excess ABG Hemoglobin Oxyhemoglobin Sodium 136 L Potassium Chloride 95.5 L Carbon Dioxide BUN 76 H Creatinine 2.2 H Glucose 109 H POC Glucose 123 H Lactic Acid Calcium Ionized Calcium Phosphorus Magnesium Direct Bilirubin AST ALT Alkaline Phosphatase Lactate Dehydrogenase Troponin T C-Reactive Protein Total Protein Albumin Prealbumin Triglycerides Cholesterol LDL Cholesterol Direct HDL Cholesterol 25-OH Vitamin D Total PTH Intact Urine pH Urine WBC (Auto) Urine Creatinine Urine Total Protein Fluid Total Protein Vancomycin Trough Rheumatoid Factor Complement C4 Miscellaneous Test Crossmatch Allied health notes reviewed: case management
[2017-02-24] MEDS ORDERED: INTRALIPID 20% 250 ML IV SCH (20:00)
[2017-02-24] MEDS: TPN ADULT IV SCH ×2 (20:36→21:00)
[2017-02-25] MEDS: REGLAN IV SCH ×4 (04:09→21:09)
[2017-02-25] MEDS: HEPARIN SUB-Q SCH ×3 (04:10→21:09)
[2017-02-25 05:40] LABS: Calcium 9.5 mg/dL (8.4-10.2)
[2017-02-25] MEDS: HumuLIN R SUB-Q SCH ×3 (05:42→18:27)
[2017-02-25] MEDS: DUONEB *Not for PRN Use IH SCH ×3 (07:38→19:41)
[2017-02-25] MEDS: PEPCID IV SCH (10:04)
[2017-02-25] MEDS: CORDARONE 900 MG in D5W 482 ML IV SCH (10:04)
--- NOTE | 2017-02-25 12:05 | Progress Note ---
Assessment and Plan Assessment and plan: Patient is 46-year-old woman with a history of hypertension, diabetes, asthma, hyperlipidemia, chronic kidney disease and anxiety , who was brought in by family because, she couldn't get her words out, her face was also twisted, she was admitted for acute CVA and accelerated hypertension, she had a hx of poor adherence with her medications, and uncontrolled htn. Patient's SBP on admission was noted be greater than 260. TPA was started but this was discontinued after 5 minutes because her blood pressure became uncontrolled. The TPA was not initiated again because the patient was outside the TPA window. Fever obtain UA, UC, blood cx and CXR if continues to spike fever, will consult ID Status post cardiac arrest , 11/21/16 on Mechanical ventilation >96 hrs, >3 months Vent Dependant Respirtory failure secodnary to Anoxic Brain injury S/P Tracheostomy Severe Sepsis with septic shock; has completed abx, case dw ID Surgical wound infection/gram-negative sepsis/candidemia/peritonitis - On TPN ESRD - on HD - Cr 1.9 today Acute CVA with infarct - Neurology input appreciated - CT shows continued evolution of left MCA infarct with slight mass effect and edema, and there is no hemorrhage - PRINCE showed hyperdynamic with ef of 75%, neither clot nor septal defect seen - MRA Brain shows near complete occlusion of M2 and M3 of the left MCA - Repeat CT scan done on 09/11, shows stable findings - carotid doppler negative - Echo shows preserved systolic function but does show some left ventricular diastolic dysfunction - continue asa and statin Persistent vegetative state - This patient's needs placement at SNF - She was denied for LTACH Nosocomial acquired aspiration pneumonia/sepsis/UTI/PERITONITIS - Has been on multiple antibiotics, expect recurrent sepsis due to now known Bowel perforation not amendable to surgery due to clinical condition A. fib with RVR -On amio drip, cannot change to PO due to persistent nausea and vomiting Diabetes type 2. -Continue sliding-scale regular insulin and Accu-Cheks. Hyperlipidemia. Continue statin Severe Protein calorie Malnutrition/Adult failure to thrive - TPN Anemia requiring multiple transfusions/acute blood loss - currently stable - Check AM labs - Will transfuse if it is below 7 Sacral decubitus ulcer - Status post debridement -Wound vac in place Disposition. Very poor prognosis. DNR - The high probability of a clinically significant, sudden or life threatening deterioration of the [neurologic, CV] system(s) required my full and direct attention, intervention and personal management. The aggregate critical care time was [35] minutes. This time is in addition to time spent performing reported procedures but includes the following: [x] Data Review and interpretation [x] Patient assessment and monitoring of vital signs [x] Documentation [x] Medication orders and management History Interval history: patient seen and examined, remains unresponsive on the ventilator. afebrile overnight, no vomiting was tachypneic and tachycardic overnight Hospitalist Physical - Physical exam Narrative exam: GEN: Ill appearing, trach, staring into space,, non purposeful movement NECK: SUPPLE, trach in place, ngt in place and to suction. CVS:Irregular Irregular with LUNGS/CHEST: NORMAL CHEST EXPANSION B, GOOD AIR ENTRY B, tachypena ABD: SOFT, no grimise on abdominal palpation, Ostomy bags at two side by side fistula site. GBS, NO REBOUND OR GUARDING, peg tube in place EXT/SKIN: NO SIGNIFICANT EDEMA BUT WITH UNSTAGEABLE SACRAL DECUB, wound vac inplace MSK: +spontaneous non purposeful movement NEURO: on a ventilator and unresponsive despite being off sedation PSY: Comatose, - Constitutional Vitals: Temp Pulse Resp BP Pulse Ox 99.2 F 105 H 25 H 98/53 99 02/25/17 08:00 02/25/17 11:26 02/25/17 11:26 02/25/17 11:26 02/25/17 11:26 General appearance: Present: no acute distress, well-nourished Results - Labs CBC & Chem 7: 02/24/17 10:05 02/25/17 05:00 Labs: Laboratory Last Values WBC 10.2 K/mm3 (4.5-11.0) 02/24/17 10:05 RBC 2.95 M/mm3 (3.65-5.03) L 02/24/17 10:05 Hgb 8.4 gm/dl (10.1-14.3) L 02/24/17 10:05 Hct 25.7 % (30.3-42.9) L 02/24/17 10:05 MCV 87 fl (79-97) 02/24/17 10:05 MCH 28 pg (28-32) 02/24/17 10:05 MCHC 33 % (30-34) 02/24/17 10:05 RDW 20.8 % (13.2-15.2) H 02/24/17 10:05 Plt Count 333 K/mm3 (140-440) 02/24/17 10:05 Lymph % (Auto) 19.8 % (13.4-35.0) 02/24/17 10:05 Cole % (Auto) 7.2 % (0.0-7.3) 02/24/17 10:05 Eos % (Auto) 0.7 % (0.0-4.3) 02/24/17 10:05 Baso % (Auto) 0.5 % (0.0-1.8) 02/24/17 10:05 Lymph # 2.0 K/mm3 (1.2-5.4) 02/24/17 10:05 Cole # 0.7 K/mm3 (0.0-0.8) 02/24/17 10:05 Eos # 0.1 K/mm3 (0.0-0.4) 02/24/17 10:05 Baso # 0.0 K/mm3 (0.0-0.1) 02/24/17 10:05 Add Manual Diff Complete 12/19/16 05:02 Total Counted 100 12/19/16 05:02 Seg Neutrophils % 71.8 % (40.0-70.0) H 02/24/17 10:05 Seg Neuts % (Manual) 64.0 % (40.0-70.0) 12/19/16 05:02 Band Neutrophils % 15.0 % 12/19/16 05:02 Lymphocytes % (Manual) 13.0 % (13.4-35.0) L 12/19/16 05:02 Reactive Lymphs % (Man) 0 % 12/19/16 05:02 Monocytes % (Manual) 7.0 % (0.0-7.3) 12/19/16 05:02 Eosinophils % (Manual) 0 % (0.0-4.3) 12/19/16 05:02 Basophils % (Manual) 1.0 % (0.0-1.8) 12/19/16 05:02 Metamyelocytes % 0 % 12/19/16 05:02 Myelocytes % 0 % 12/19/16 05:02 Promyelocytes % 0 % 12/19/16 05:02 Blast Cells % 0 % 12/19/16 05:02 Nucleated RBC % 1.0 % (0.0-0.9) H 12/19/16 05:02 Seg Neutrophils # 7.3 K/mm3 (1.8-7.7) 02/24/17 10:05 Seg Neutrophils # Man 12.9 K/mm3 (1.8-7.7) H 12/19/16 05:02 Band Neutrophils # 3.0 K/mm3 12/19/16 05:02 Lymphocytes # (Manual) 2.6 K/mm3 (1.2-5.4) 12/19/16 05:02 Abs React Lymphs (Man) 0.0 K/mm3 12/19/16 05:02 Monocytes # (Manual) 1.4 K/mm3 (0.0-0.8) H 12/19/16 05:02 Eosinophils # (Manual) 0.0 K/mm3 (0.0-0.4) 12/19/16 05:02 Basophils # (Manual) 0.2 K/mm3 (0.0-0.1) H 12/19/16 05:02 Metamyelocytes # 0.0 K/mm3 12/19/16 05:02 Myelocytes # 0.0 K/mm3 12/19/16 05:02 Promyelocytes # 0.0 K/mm3 12/19/16 05:02 Blast Cells # 0.0 K/mm3 12/19/16 05:02 Pathologist Review 09/13/16 04:00 WBC Morphology Not Reportable 12/19/16 05:02 Hypersegmented Neuts Not Reportable 12/19/16 05:02 Hyposegmented Neuts Not Reportable 12/19/16 05:02 Hypogranular Neuts Not Reportable 12/19/16 05:02 Smudge Cells Not Reportable 12/19/16 05:02 Toxic Granulation Not Reportable 12/19/16 05:02 Toxic Vacuolation Not Reportable 12/19/16 05:02 Dohle Bodies Not Reportable 12/19/16 05:02 Pelger-Huet Anomaly Not Reportable 12/19/16 05:02 Jasmina Rods Not Reportable 12/19/16 05:02 Platelet Estimate Consistent w auto 12/19/16 05:02 Clumped Platelets Not Reportable 12/19/16 05:02 Plt Clumps, EDTA Not Reportable 12/19/16 05:02 Large Platelets Not Reportable 12/19/16 05:02 Giant Platelets Not Reportable 12/19/16 05:02 Platelet Satelliting Not Reportable 12/19/16 05:02 Plt Morphology Comment Not Reportable 12/19/16 05:02 RBC Morphology Not Reportable 12/19/16 05:02 Dimorphic RBCs Not Reportable 12/19/16 05:02 Polychromasia Not Reportable 12/19/16 05:02 Hypochromasia Not Reportable 12/19/16 05:02 Poikilocytosis Not Reportable 12/19/16 05:02 Anisocytosis Not Reportable 12/19/16 05:02 Microcytosis Not Reportable 12/19/16 05:02 Macrocytosis Not Reportable 12/19/16 05:02 Spherocytes Not Reportable 12/19/16 05:02 Pappenheimer Bodies Not Reportable 12/19/16 05:02 Sickle Cells Not Reportable 12/19/16 05:02 Target Cells Few 12/19/16 05:02 Tear Drop Cells Not Reportable 12/19/16 05:02 Ovalocytes Not Reportable 12/19/16 05:02 Stomatocytes Rare 12/03/16 04:00 Helmet Cells Not Reportable 12/19/16 05:02 Monet-[place] Bodies Not Reportable 12/19/16 05:02 [place] Rings Not Reportable 12/19/16 05:02 [place] Cells Not Reportable 12/19/16 05:02 Bite Cells Not Reportable 12/19/16 05:02 Crenated Cell Not Reportable 12/19/16 05:02 Elliptocytes Not Reportable 12/19/16 05:02 Acanthocytes (Spur) Not Reportable 12/19/16 05:02 Rouleaux Not Reportable 12/19/16 05:02 Hemoglobin C Crystals Not Reportable 12/19/16 05:02 Schistocytes Not Reportable 12/19/16 05:02 Malaria parasites Not Reportable 12/19/16 05:02 ESR > 140.0 mm/Hr (0-20) 09/08/16 11:48 Jun Bodies Not Reportable 12/19/16 05:02 Hem Pathologist Commnt No 12/19/16 05:02 PT 15.4 Sec. (12.2-14.9) H 01/13/17 15:50 INR 1.16 (0.87-1.13) H 01/13/17 15:50 APTT 33.0 Sec. (24.2-36.6) 10/09/16 03:45 Thrombin Time 16.8 Sec. (15.1-19.6) 09/03/16 00:10 Fibrinogen 750 mg/dl (211-480) H 09/08/16 11:48 Lupus Anticoagulant see below 09/12/16 09:59 LA PTT Baseline See scanned report 09/12/16 09:59 dRVVT Confirm Interp Positive (Negative) H 09/12/16 09:59 dRVVT Screen 50:50 See scanned report 09/12/16 09:59 dRVVT Mix Interpret See scanned report 09/12/16 09:59 Protein C Antigen 122 % (70-140) 09/08/16 15:35 Free Protein S 97 % normal (50-147) 09/08/16 15:35 Total Protein S 109 % (70-140) 09/08/16 15:35 Antithrombin III Ag 100 % (80-120) 09/08/16 15:35 Heparin Anti-Xa, Unfract Negative (Negative) 09/29/16 13:35 Factor V Activity 182 % (65-150) H 09/08/16 15:35 POC ABG pH 7.436 (7.35-7.45) 01/20/17 12: ABG pH 7.450 pH Units (7.350-7.450) 12/05/16 Unknown POC ABG pCO2 35.3 (35-45) 01/20/17 12:17 ABG pCO2 29.6 mm Hg 12/05/16 Unknown POC ABG pO2 70 (80-105) L 01/20/17 12: ABG pO2 75.2 mm Hg (80.0-90.0) L 12/05/16 Unknown POC ABG HCO3 23.8 01/20/17 12:17 ABG HCO3 20.1 mmol/L (20.0-26.0) 12/05/16 Unknown POC ABG Total CO2 25 01/20/17 12:17 POC ABG O2 Sat 94 01/20/17 12:17 ABG O2 Saturation 96.8 % (95.0-99.0) 12/05/16 Unknown ABG O2 Content 9.9 (0.0-44) 12/05/16 Unknown POC ABG Base Excess 0 01/20/17 12:17 ABG Base Excess -3.4 mmol/L (-2.0-3.0) L 12/05/16 Unknown ABG Hemoglobin 7.4 gm/dl (12.0-16.0) L 12/05/16 Unknown ABG Carboxyhemoglobin 1.8 % (0.0-5.0) 12/05/16 Unknown ABG Methemoglobin 0.6 % (0.0-1.5) 12/05/16 Unknown Oxyhemoglobin 94.5 % (95.0-99.0) L 12/05/16 Unknown FiO2 30 % 01/20/17 12:17 Sodium 137 mmol/L (137-145) 02/25/17 05:00 Potassium 4.0 mmol/L (3.6-5.0) 02/25/17 05:00 Chloride 96.8 mmol/L (98-107) L 02/25/17 05:00 Carbon Dioxide 23 mmol/L (22-30) 02/25/17 05:00 Anion Gap 21 mmol/L 02/25/17 05:00 BUN 94 mg/dL (7-17) H 02/25/17 05:00 Creatinine 2.8 mg/dL (0.7-1.2) H 02/25/17 05:00 Estimated GFR 22 ml/min 02/25/17 05:00 BUN/Creatinine Ratio 34 % 02/25/17 05:00 Glucose 118 mg/dL (65-100) H 02/25/17 05:00 POC Glucose 106 (70-105) H 02/25/17 11:44 Osmolality 351 Mosm/kg 09/16/16 11:47 Lactic Acid 2.30 mmol/L (0.7-2.0) H* 01/09/17 08:22 Calcium 9.5 mg/dL (8.4-10.2) 02/25/17 05:00 Ionized Calcium 6.0 mg/dL (4.8-5.6) H 02/15/17 19:08 Phosphorus 4.00 mg/dL (2.5-4.5) D 02/25/17 05:00 Magnesium 1.80 mg/dL (1.7-2.3) 02/25/17 05:00 Total Bilirubin 0.50 mg/dL (0.1-1.2) 02/22/17 04:10 Direct Bilirubin 0.2 mg/dL (0-0.2) 01/28/17 04:00 Indirect Bilirubin 0.3 mg/dL 01/28/17 04:00 AST 10 units/L (5-40) 02/22/17 04:10 ALT 7 units/L (7-56) 02/22/17 04:10 Alkaline Phosphatase 95 units/L (35-129) 02/22/17 04:10 Ammonia 27.0 umol/L (25-60) 09/07/16 08:37 Lactate Dehydrogenase 170 units/L (91-180) 01/13/17 15:50 Total Creatine Kinase 121 units/L (30-135) 09/29/16 20:12 CK-MB (CK-2) < 1.0 ng/mL (0.0-4.0) 09/29/16 20:12 CK-MB (CK-2) Rel Index 0.8 (0-4) 09/29/16 20:12 Troponin T 0.204 ng/mL (0.00-0.029) H* 09/29/16 20:12 C-Reactive Protein 8.10 mg/dL (0.00-1.30) H 01/31/17 11:12 Total Protein 7.4 g/dL (6.3-8.2) 02/22/17 04:10 Albumin 1.3 g/dL (3.9-5) L 02/22/17 04:10 Albumin/Globulin Ratio 0.2 % 02/22/17 04:10 Prealbumin 0.110 g/L (0.200-0.400) L 12/29/16 05:15 Triglycerides 55 mg/dL (2-149) 02/06/17 04:45 Cholesterol 31 mg/dL (50-199) L 09/29/16 20:12 LDL Cholesterol Direct 4 mg/dL (50-130) L 09/29/16 20:12 HDL Cholesterol 3 mg/dL (40-59) L 09/29/16 20:12 Cholesterol/HDL Ratio 10.33 % 09/29/16 20:12 Angiotensin Convert Enz See scanned report 09/08/16 11:48 Renin 0.99 ng/mL/h (0.25-5.82) 10/07/16 10:56 Aldosterone <1 ng/dL () 10/07/16 10:56 Aldosterone/Renin Dir see below 10/07/16 10:56 Serotonin Release Assay See scanned report 09/29/16 13:35 25-OH Vitamin D Total 13 ng/mL (30-100) L 02/15/17 19:08 25-Hydroxy Vitamin D2 . 02/15/17 19:08 25-Hydroxy Vitamin D3 . 02/15/17 19:08 TSH 1.010 mlU/mL (0.270-4.200) 09/07/16 08:37 HCG, Qual Negative (Negative) 09/03/16 00:10 PTH Intact 10.88 pg/mL (15-65) L 02/15/17 19:08 Total Cortisol 18.2 mcg/dL () 02/02/17 20:09 Urine Color Yellow (Yellow) 11/05/16 13:09 Urine Turbidity Clear (Clear) 11/05/16 13:09 Urine pH 9.0 (5.0-7.0) H 11/05/16 13:09 Ur Specific [place] 1.011 (1.003-1.030) 11/05/16 13:09 Urine Protein 100 mg/dl mg/dL (Negative) 11/05/16 13:09 Urine Glucose (UA) Neg mg/dL (Negative) 11/05/16 13:09 Urine Ketones Neg mg/dL (Negative) 11/05/16 13:09 Urine Blood Neg (Negative) 11/05/16 13:09 Urine Nitrite Neg (Negative) 11/05/16 13:09 Urine Bilirubin Neg (Negative) 11/05/16 13:09 Urine Urobilinogen < 2.0 mg/dL (<2.0) 11/05/16 13:09 Ur Leukocyte Esterase Neg (Negative) 11/05/16 13:09 Urine WBC (Auto) 4.0 /HPF (0.0-6.0) 11/05/16 13:09 Urine RBC (Auto) 1.0 /HPF (0.0-6.0) 11/05/16 13:09 U Epithel Cells (Auto) 1.0 /HPF (0-13.0) 10/07/16 18:30 Urine Bacteria (Auto) 4+ /HPF (Negative) 11/05/16 13:09 Urine WBC Clumps 2+ /HPF 09/07/16 02:47 Hyaline Casts 4 /LPF 09/07/16 02:47 Urine Mucus Few /HPF 10/07/16 18:30 Urine Yeast (Budding) 3+ /HPF 10/07/16 18:30 Urine Eosinophils None seen (None Seen) 09/07/16 16:00 Urine Total Volume 950 11/12/16 10:18 Urine Creatinine 19.7 mg/dL (0.1-20.0) 11/12/16 10:18 Height (in) 65.0 inches 11/12/16 10:18 Weight (lb) 181.0 lbs 11/12/16 10:18 Creatinine Clearance 5 11/12/16 10:18 Urine Sodium 36 mEq/L 09/16/16 19:19 Urine Total Protein 16 mg/dL (5-11.8) H 09/16/16 19:19 Fluid Type Pleural 01/13/17 12:10 Fluid Color Yellow 01/13/17 12:10 Fluid Appearance Hazy 01/13/17 12:10 Fluid WBC 182 /mm3 01/13/17 12:10 Fluid RBC 41 /mm3 01/13/17 12:10 Fluid Seg Neutrophils 85.0 % 01/13/17 12:10 Fluid Lymphocytes 8.0 % 01/13/17 12:10 Fluid Reactive Lymphs 0 % 01/13/17 12:10 Fluid Monocytes 6.0 % 01/13/17 12:10 Fluid Eosinophils 1.0 % 01/13/17 12:10 Fluid Basophils 0 % 01/13/17 12:10 Fluid Total Protein 3.0 (15.0-45.0) L 01/13/17 12:10 Fluid LDH 1322 01/13/17 12:10 Fluid Comment Diff performed 01/13/17 12:10 Vancomycin Trough 2.3 ug/mL (5.0-20.0) L 09/21/16 13:00 Random Vancomycin 16.5 ug/mL (0-40.0) 11/28/16 09:45 Urine Opiates Screen Presumptive negative 09/03/16 15:11 Urine Methadone Screen Presumptive positive 09/03/16 15:11 Ur Barbiturates Screen Presumptive positive 09/03/16 15:11 Ur Phencyclidine Scrn Presumptive negative 09/03/16 15:11 Ur Amphetamines Screen Presumptive negative 09/03/16 15:11 U Benzodiazepines Scrn Presumptive negative 09/03/16 15:11 Urine Cocaine Screen Presumptive negative 09/03/16 15:11 U Marijuana (THC) Screen Presumptive positive 09/03/16 15:11 Drugs of Abuse Note Disclamer 09/03/16 15:11 Rheumatoid Factor 24 IU/ml (0-13) H 09/08/16 11:48 SAHIL Screen Negative (Negative) 09/07/16 09:20 Proteinase 3 (PR3) Ab <1.0 AI (<1.0) 09/07/16 09:20 Myeloperoxidase Ab <1.0 AI (<1.0) 09/07/16 09:20 Sjogren's Antibody <1.0 AI (<1.0) 09/08/16 15:35 Scl-70 Scleroderma Ab <1.0 AI (<1.0) 09/08/16 15:35 Centromere B Antibody <1.0 AI (<1.0) 09/08/16 12:02 Heparin-induced Plt Ab Negative (Negative) 09/29/16 13:35 UF Heparin High Dose 11 % Release 09/29/16 13:35 SUDHIR UFH Low Dose 0.1 6 % Release 09/29/16 13:35 SUDHIR UFH Low Dose 0.5 8 % Release 09/29/16 13:35 Cardiolipid IgG Ab <14 GPL (<=14) 09/12/16 09:59 Cardiolipid IgA Ab <11 APL (<=11) 09/12/16 09:59 Cardiolipid IgM Ab <12 MPL (<=12) 09/12/16 09:59 Complement C3 148 mg/dL (90-180) 09/07/16 09:20 Complement C4 58 mg/dL (16-47) H 09/07/16 09:20 RPR Nonreactive (Nonreactive) 09/08/16 11:48 Hepatitis A IgM Ab Non-reactive (NonReactive) 09/24/16 14:40 Hep Bs Antigen Non-reactive (Negative) 09/24/16 14:40 Hep B Core IgM Ab Non-reactive (NonReactive) 09/24/16 14:40 Hepatitis C Antibody Non-reactive (NonReactive) 09/24/16 14:40 HIV 1&2 Antibody Rapid Non react (Non React) 09/08/16 11:48 HIV P24 Antigen Non react (Non React) 09/08/16 11:48 Miscellaneous Test Flexitest 1 H 01/09/17 18:45 Blood Type A POSITIVE 02/12/17 10:25 Antibody Screen Negative 02/12/17 10:25 DELORIS Antibody Screen Negative 11/24/16 11:20 Crossmatch See Detail 02/12/17 10:25
--- NOTE | 2017-02-25 12:54 | Progress Note ---
Subjective Principal diagnosis: Acute resp failure on MVS; S/P Acute CVA; Acute Encephalopathy; JUANITA Interval history: Patient was seen today for follow-up on multiple renal related issues Events of this hospitalization noted, she remains dialysis dependent Monday and Monday Dialysis was held yesterday due to tachycardia currently doing relatively better I do not see any blood count done today Vitals labs intake output medications were reviewed Social history: Reviewed Allergies: Reviewed Family history: Reviewed Physical examination HEENT: Oral mucosa moist no pallor or icterus Neck: Supple no JVD Chest: Clear to auscultation anteriorly CVS: Regular rate and rhythm apical heart rate 118/m S1 and S2 heard Abdomen: Soft nontender no suprapubic masses no organomegaly appreciable Extremity: Dry skin less than 1+ peripheral edema Musculoskeletal: No joint effusion noted in knees and ankle Dermatology: No petechial rashes Psychiatry: No evidence of any agitation and aggression noted Assessment and plan End-stage renal disease: normally being dialyzed on Monday Dialysis was withheld yesterday due to tachycardia discussed with ICU nurse to get hemodialysis nurse for hemodialysis today Labs were reviewed Anemia in end-stage renal disease: To monitor and follow Secondary hyperparathyroidism: To monitor and follow phosphorus and PTH level phosphorus has been relatively low periodically will need replacement, current phosphorus 3.0 Status post acute CVA, bacteremia, Hypotension tachycardia: To monitor and follow Respiratory failure currently ventilator dependent status post tracheotomy History of gram-negative sepsis, candidemia, peritonitis Persistent vegetative state Atrial fibrillation, diabetes, hyperlipidemia, renovascular hypertension, sacral decubitus ulcer We'll continue to follow and make recommendation from renal standpoint Objective - Vital Signs Vital signs: Vital Signs - 12hr 02/25/17 02/25/17 02/25/17 01:00 02:00 03:00 Temperature Pulse Rate 107 H 105 H 112 H Pulse Rate [ Throughout] Respiratory 22 20 21 Rate Respiratory Rate [ Throughout] Blood Pressure 146/81 119/86 127/84 O2 Sat by Pulse 100 99 97 Oximetry O2 Sat by Pulse Oximetry [ Assessment] 02/25/17 02/25/17 02/25/17 03:20 04:00 05:00 Temperature 99.2 F Pulse Rate 114 H 106 H Pulse Rate [ Throughout] Respiratory 29 H 22 Rate Respiratory Rate [ Throughout] Blood Pressure 127/80 117/61 O2 Sat by Pulse 98 100 Oximetry O2 Sat by Pulse Oximetry [ Assessment] 02/25/17 02/25/17 02/25/17 06:00 07:00 07:38 Temperature Pulse Rate 98 H 104 H 103 H Pulse Rate [ 103 H Throughout] Respiratory 18 18 Rate Respiratory 21 Rate [ Throughout] Blood Pressure 95/17 111/62 111/62 O2 Sat by Pulse 100 100 97 Oximetry O2 Sat by Pulse Oximetry [ Assessment] 02/25/17 02/25/17 02/25/17 07:48 07:49 08:00 Temperature 99.2 F Pulse Rate Pulse Rate [ 106 H Throughout] Respiratory Rate Respiratory 13 Rate [ Throughout] Blood Pressure O2 Sat by Pulse Oximetry O2 Sat by Pulse 100 Oximetry [ Assessment] 02/25/17 02/25/17 02/25/17 08:01 09:00 10:00 Temperature Pulse Rate 108 H 104 H 103 H Pulse Rate [ Throughout] Respiratory 22 26 H 24 Rate Respiratory Rate [ Throughout] Blood Pressure 92/45 96/50 108/59 O2 Sat by Pulse 98 99 99 Oximetry O2 Sat by Pulse Oximetry [ Assessment] 02/25/17 02/25/17 02/25/17 11:00 11:26 12:00 Temperature Pulse Rate 104 H 105 H 104 H Pulse Rate [ Throughout] Respiratory 23 25 H 25 H Rate Respiratory Rate [ Throughout] Blood Pressure 98/53 98/53 107/57 O2 Sat by Pulse 99 99 99 Oximetry O2 Sat by Pulse Oximetry [ Assessment] - Lab 02/24/17 10:05 02/25/17 05:00 Most recent lab results ABG pH 7.450 pH Units (7.350-7.450) 12/05/16 Unknown ABG pCO2 29.6 mm Hg 12/05/16 Unknown ABG pO2 75.2 mm Hg (80.0-90.0) L 12/05/16 Unknown ABG HCO3 20.1 mmol/L (20.0-26.0) 12/05/16 Unknown ABG O2 Saturation 96.8 % (95.0-99.0) 12/05/16 Unknown Calcium 9.5 mg/dL (8.4-10.2) 02/25/17 05:00 Phosphorus 4.00 mg/dL (2.5-4.5) D 02/25/17 05:00 Magnesium 1.80 mg/dL (1.7-2.3) 02/25/17 05:00 Urine Creatinine 19.7 mg/dL (0.1-20.0) 11/12/16 10:18 Urine Sodium 36 mEq/L 09/16/16 19:19 Urine Total Protein 16 mg/dL (5-11.8) H 09/16/16 19:19
--- NOTE | 2017-02-25 14:50 | Progress Note ---
Assessment and Plan Patient is 46-year-old woman with a history of hypertension, diabetes mellitus, asthma, hyperlipidemia, chronic kidney disease and anxiety, who was brought in by family because she couldn't get her words out, her face was also twisted, she was admitted for acute CVA and accelerated hypertension, she had a hx of poor adherence with her medications, and uncontrolled hypertension. Patient's SBP on admission was noted be greater than 260. TPA was started but this it was discontinued after 5 minutes because her blood pressure became uncontrolled. The TPA was not initiated again because the patient was outside the TPA window. Patient has had a prolonged hospital stay complicated with recurrent severe sepsis. Patient with most recent event also status post cardiac arrest on 11/21/16 , with CPR and ROSC. Acute on chronic Hypoxemic Respiratory Failure Sepsis -recurrent s/p tracheostomy Hypertension Atrial Fibrillation with RVR Acute encephalopathy s/p CVA Oropharyngeal dysphagia Enterococcal bacteremia Sacral Decubitus Ulcer- unstageable s/p debridement Anemia Obesity JUANITA now on hemodialysis Enteric Fistula - VAP bundle addressed - continue NGT to LIS - continue wound care/wound vac per WCT - Vasopressor if MAP falls < 65mmHg - keep on with daily PSV trials and / or T-piece as tolerated - continue TPN administration (continue TPN; NPO except for meds) - continue airway clearance and secretion management - continue to wean FiO2 for sats > 94% - continue to monitor hemodynamics closely - continue HD/UF per nephrology - continue to follow electrolytes and correct as necessary - continue GI & VTE prophylaxis -transfuse 1 unit PRBC as needed to keep HgH>7g/dL .....she remains critically ill on life sustaining interventions including MVS and at risk for further deterioration including ...residential prognosis remains poor - Patient Problems (1) Acute respiratory failure with hypoxia Current Visit: Yes Status: Acute (2) Acute blood loss anemia Current Visit: Yes Status: Resolved (3) Acute CVA (cerebrovascular accident) Current Visit: Yes Status: Acute (4) Chronic renal insufficiency Current Visit: Yes Status: Acute (5) Uncontrolled hypertension Current Visit: Yes Status: Acute (6) Leukocytosis (leucocytosis) Current Visit: Yes Status: Acute Qualifiers: Leukocytosis type: leukemoid reaction Qualified Code(s): D72.823 - Leukemoid reaction (7) Dislodged gastrostomy tube Current Visit: Yes Status: Acute (8) Fungemia Current Visit: Yes Status: Resolved (9) Cardiopulmonary arrest with successful resuscitation Current Visit: Yes Status: Acute Subjective Date of service: 02/25/17 Principal diagnosis: Acute resp failure on MVS; S/P Acute CVA; Acute Encephalopathy; JUANITA Interval history: Patient is seen today for: Acute resp failure on MVS; S/P Acute CVA; Acute Encephalopathy; JUANITA Seen and examined at bedside; 24hour events reviewed; nursing and respiratory care staff consulted; no adverse overnight events reported to me; she remains critically ill Patient was made DNR on 02/12/2017 by family, see hospitalist documentation. No new events Vitals, labs, medications, chart reviewed. Discussed with RT and RN Tolerating weaning. Currently on PS 15/5 with tidal volumes of 300 and RR 20- 30. On HD Objective - Exam Narrative Exam: GEN: Ill appearing, tracheostomy to mechanical ventilatory support, staring into space,non purposeful movement NECK: Supple, tracheostomy in place, NGT in place and to suction. CVS:Irregular Irregular , S1,S2, no murmurs, no gallops. LUNGS/CHEST: Good AE bilaterally, Rhonchi bilaterally, ABD: SOFT, no grimace on abdominal palpation, Ostomy bags at fistula sites GBS, No rebound, no peritoneal signs, peg tube in place EXT/SKIN:Wound vac in place, unstageable decubitus ulcer MSK: +spontaneous non purposeful movement NEURO: on a ventilator and unresponsive Vital Signs - 12hr 02/25/17 02/25/17 02/25/17 03:00 03:20 04:00 Temperature 99.2 F Pulse Rate 112 H 114 H Pulse Rate [ Throughout] Respiratory 21 29 H Rate Respiratory Rate [ Throughout] Blood Pressure 127/84 127/80 O2 Sat by Pulse 97 98 Oximetry O2 Sat by Pulse Oximetry [ Assessment] 02/25/17 02/25/17 02/25/17 05:00 06:00 07:00 Temperature Pulse Rate 106 H 98 H 104 H Pulse Rate [ Throughout] Respiratory 22 18 18 Rate Respiratory Rate [ Throughout] Blood Pressure 117/61 95/17 111/62 O2 Sat by Pulse 100 100 100 Oximetry O2 Sat by Pulse Oximetry [ Assessment] 02/25/17 02/25/17 02/25/17 07:38 07:48 07:49 Temperature Pulse Rate 103 H Pulse Rate [ 103 H 106 H Throughout] Respiratory Rate Respiratory 21 13 Rate [ Throughout] Blood Pressure 111/62 O2 Sat by Pulse 97 Oximetry O2 Sat by Pulse 100 Oximetry [ Assessment] 02/25/17 02/25/17 02/25/17 08:00 08:01 09:00 Temperature 99.2 F Pulse Rate 108 H 104 H Pulse Rate [ Throughout] Respiratory 22 26 H Rate Respiratory Rate [ Throughout] Blood Pressure 92/45 96/50 O2 Sat by Pulse 98 99 Oximetry O2 Sat by Pulse Oximetry [ Assessment] 02/25/17 02/25/17 02/25/17 10:00 11:00 11:26 Temperature Pulse Rate 103 H 104 H 105 H Pulse Rate [ Throughout] Respiratory 24 23 25 H Rate Respiratory Rate [ Throughout] Blood Pressure 108/59 98/53 98/53 O2 Sat by Pulse 99 99 99 Oximetry O2 Sat by Pulse Oximetry [ Assessment] 02/25/17 12:00 Temperature 101.2 F H Pulse Rate 104 H Pulse Rate [ Throughout] Respiratory 25 H Rate Respiratory Rate [ Throughout] Blood Pressure 107/57 O2 Sat by Pulse 99 Oximetry O2 Sat by Pulse Oximetry [ Assessment] Constitutional: appears uncomfortable, other (not tracking) Eyes: non-icteric, other (tracheostomy tube in midline of neck) ENT: oropharynx moist, oropharyngeal exudate pre, other (midline tracheostomy tube) Neck: supple, no lymphadenopathy, no JVD, other (no thyromegaly) Effort: mildly labored Ascultation: Bilateral: clear, diminished breath sounds, rales, rhonchi (and referred upper airway sounds) Percussion: Right: dull (base), Bilateral: not dull Cardiovascular: regular rate and rhythm, other (no rubs / murmurs) Gastrointestinal: hypoactive bowel sounds, soft, non-tender, non-distended, other (RLQ & LUQ stomas with colostomy bags) Integumentary: decubitus ulcer (sacral; stage 4 s/p surgical debridement), other (no rash; no cellulitis; poor turgor) Extremities: no cyanosis, pulses normal, no ischemia or petechiae, edema (1+ bilaterally) Neurologic: pupils equal and round, unable to assess, other (encephalopathic) Psychiatric: other (unable to assess) CBC and BMP: 02/24/17 10:05 02/25/17 05:00 ABG, PT/INR, D-dimer: ABG POC ABG pH 7.436 (7.35-7.45) 01/20/17 12:17 ABG pH 7.450 pH Units (7.350-7.450) 12/05/16 Unknown POC ABG pCO2 35.3 (35-45) 01/20/17 12: ABG pCO2 29.6 mm Hg 12/05/16 Unknown POC ABG pO2 70 (80-105) L 01/20/17 12: ABG pO2 75.2 mm Hg (80.0-90.0) L 12/05/16 Unknown POC ABG HCO3 23.8 01/20/17 12:17 POC ABG Total CO2 25 01/20/17 12: POC ABG O2 Sat 94 01/20/17 12: ABG O2 Saturation 96.8 % (95.0-99.0) 12/05/16 Unknown PT/INR, D-dimer PT 15.4 Sec. (12.2-14.9) H 01/13/17 15:50 INR 1.16 (0.87-1.13) H 01/13/17 15:50 Abnormal lab findings: Abnormal Labs 09/03/16 09/03/16 09/03/16 00:03 00:10 00:10 WBC 13.9 H RBC 5.95 H Hgb Hct 44.0 H MCV 74 L MCH 22 L MCHC RDW 17.5 H Plt Count Lymph % (Auto) [place] % (Auto) Lymph # [place] # Baso # Seg Neutrophils % Seg Neuts % (Manual) Lymphocytes % (Manual) 54.0 H Monocytes % (Manual) Eosinophils % (Manual) Basophils % (Manual) Nucleated RBC % Seg Neutrophils # Seg Neutrophils # Man Lymphocytes # (Manual) 7.5 H Monocytes # (Manual) Eosinophils # (Manual) Basophils # (Manual) PT INR Fibrinogen dRVVT Confirm Interp Factor V Activity POC ABG pH POC ABG pCO2 POC ABG pO2 ABG pO2 ABG HCO3 ABG Base Excess ABG Hemoglobin Oxyhemoglobin Sodium Potassium 2.8 L* Chloride Carbon Dioxide 21 L BUN Creatinine 1.7 H Glucose 159 H POC Glucose 177 H Lactic Acid Calcium Ionized Calcium Phosphorus Magnesium Direct Bilirubin AST ALT Alkaline Phosphatase Lactate Dehydrogenase Troponin T C-Reactive Protein Total Protein Albumin Prealbumin Triglycerides Cholesterol LDL Cholesterol Direct HDL Cholesterol 25-OH Vitamin D Total PTH Intact Urine pH Urine WBC (Auto) Urine Creatinine Urine Total Protein Fluid Total Protein Vancomycin Trough Rheumatoid Factor Complement C4 Miscellaneous Test Crossmatch 09/03/16 09/03/16 09/03/16 12:12 15:07 16:20 WBC RBC Hgb Hct MCV MCH MCHC RDW Plt Count Lymph % (Auto) [place] % (Auto) Lymph # [place] # Baso # Seg Neutrophils % Seg Neuts % (Manual) Lymphocytes % (Manual) Monocytes % (Manual) Eosinophils % (Manual) Basophils % (Manual) Nucleated RBC % Seg Neutrophils # Seg Neutrophils # Man Lymphocytes # (Manual) Monocytes # (Manual) Eosinophils # (Manual) Basophils # (Manual) PT INR Fibrinogen dRVVT Confirm Interp Factor V Activity POC ABG pH 7.452 H POC ABG pCO2 POC ABG pO2 ABG pO2 ABG HCO3 ABG Base Excess ABG Hemoglobin Oxyhemoglobin Sodium Potassium Chloride Carbon Dioxide BUN Creatinine Glucose POC Glucose 178 H Lactic Acid Calcium Ionized Calcium Phosphorus 2.20 L Magnesium 1.60 L Direct Bilirubin AST ALT Alkaline Phosphatase Lactate Dehydrogenase Troponin T C-Reactive Protein Total Protein Albumin Prealbumin Triglycerides Cholesterol LDL Cholesterol Direct HDL Cholesterol 25-OH Vitamin D Total PTH Intact Urine pH Urine WBC (Auto) Urine Creatinine Urine Total Protein Fluid Total Protein Vancomycin Trough Rheumatoid Factor Complement C4 Miscellaneous Test Crossmatch 09/03/16 09/03/16 09/03/16 17:57 17:58 23:50 WBC RBC Hgb Hct MCV MCH MCHC RDW Plt Count Lymph % (Auto) [place] % (Auto) Lymph # [place] # Baso # Seg Neutrophils % Seg Neuts % (Manual) Lymphocytes % (Manual) Monocytes % (Manual) Eosinophils % (Manual) Basophils % (Manual) Nucleated RBC % Seg Neutrophils # Seg Neutrophils # Man Lymphocytes # (Manual) Monocytes # (Manual) Eosinophils # (Manual) Basophils # (Manual) PT INR Fibrinogen dRVVT Confirm Interp Factor V Activity POC ABG pH POC ABG pCO2 POC ABG pO2 ABG pO2 ABG HCO3 ABG Base Excess ABG Hemoglobin Oxyhemoglobin Sodium Potassium Chloride Carbon Dioxide BUN Creatinine Glucose POC Glucose 162 H 145 H Lactic Acid Calcium Ionized Calcium Phosphorus 2.30 L Magnesium Direct Bilirubin AST ALT Alkaline Phosphatase Lactate Dehydrogenase Troponin T C-Reactive Protein Total Protein Albumin Prealbumin Triglycerides Cholesterol LDL Cholesterol Direct HDL Cholesterol 25-OH Vitamin D Total PTH Intact Urine pH Urine WBC (Auto) Urine Creatinine Urine Total Protein Fluid Total Protein Vancomycin Trough Rheumatoid Factor Complement C4 Miscellaneous Test Crossmatch 09/04/16 09/04/16 09/04/16 03:31 03:31 05:42 WBC RBC Hgb 9.7 L D Hct MCV 72 L MCH 23 L MCHC RDW 17.5 H Plt Count Lymph % (Auto) 11.1 L [place] % (Auto) Lymph # [place] # Baso # Seg Neutrophils % 84.3 H Seg Neuts % (Manual) Lymphocytes % (Manual) Monocytes % (Manual) Eosinophils % (Manual) Basophils % (Manual) Nucleated RBC % Seg Neutrophils # 8.9 H Seg Neutrophils # Man Lymphocytes # (Manual) Monocytes # (Manual) Eosinophils # (Manual) Basophils # (Manual) PT INR Fibrinogen dRVVT Confirm Interp Factor V Activity POC ABG pH POC ABG pCO2 POC ABG pO2 ABG pO2 ABG HCO3 ABG Base Excess ABG Hemoglobin Oxyhemoglobin Sodium 135 L Potassium 2.9 L* Chloride 97.2 L Carbon Dioxide 19 L BUN Creatinine 1.7 H Glucose 170 H POC Glucose 152 H Lactic Acid Calcium Ionized Calcium Phosphorus Magnesium Direct Bilirubin AST ALT Alkaline Phosphatase Lactate Dehydrogenase Troponin T C-Reactive Protein Total Protein Albumin Prealbumin Triglycerides 160 H Cholesterol LDL Cholesterol Direct HDL Cholesterol 31 L 25-OH Vitamin D Total PTH Intact Urine pH Urine WBC (Auto) Urine Creatinine Urine Total Protein Fluid Total Protein Vancomycin Trough Rheumatoid Factor Complement C4 Miscellaneous Test Crossmatch 09/04/16 09/04/16 09/04/16 11:34 17:46 23:29 WBC RBC Hgb Hct MCV MCH MCHC RDW Plt Count Lymph % (Auto) [place] % (Auto) Lymph # [place] # Baso # Seg Neutrophils % Seg Neuts % (Manual) Lymphocytes % (Manual) Monocytes % (Manual) Eosinophils % (Manual) Basophils % (Manual) Nucleated RBC % Seg Neutrophils # Seg Neutrophils # Man Lymphocytes # (Manual) Monocytes # (Manual) Eosinophils # (Manual) Basophils # (Manual) PT INR Fibrinogen dRVVT Confirm Interp Factor V Activity POC ABG pH POC ABG pCO2 POC ABG pO2 ABG pO2 ABG HCO3 ABG Base Excess ABG Hemoglobin Oxyhemoglobin Sodium Potassium Chloride Carbon Dioxide BUN Creatinine Glucose POC Glucose 165 H 210 H 139 H Lactic Acid Calcium Ionized Calcium Phosphorus Magnesium Direct Bilirubin AST ALT Alkaline Phosphatase Lactate Dehydrogenase Troponin T C-Reactive Protein Total Protein Albumin Prealbumin Triglycerides Cholesterol LDL Cholesterol Direct HDL Cholesterol 25-OH Vitamin D Total PTH Intact Urine pH Urine WBC (Auto) Urine Creatinine Urine Total Protein Fluid Total Protein Vancomycin Trough Rheumatoid Factor Complement C4 Miscellaneous Test Crossmatch 09/05/16 09/05/16 09/05/16 04:05 04:05 05:38 WBC RBC Hgb Hct MCV 76 L D MCH 23 L MCHC RDW 17.8 H Plt Count Lymph % (Auto) [place] % (Auto) Lymph # [place] # Baso # Seg Neutrophils % Seg Neuts % (Manual) Lymphocytes % (Manual) Monocytes % (Manual) Eosinophils % (Manual) Basophils % (Manual) Nucleated RBC % Seg Neutrophils # Seg Neutrophils # Man Lymphocytes # (Manual) Monocytes # (Manual) Eosinophils # (Manual) Basophils # (Manual) PT INR Fibrinogen dRVVT Confirm Interp Factor V Activity POC ABG pH POC ABG pCO2 POC ABG pO2 ABG pO2 ABG HCO3 ABG Base Excess ABG Hemoglobin Oxyhemoglobin Sodium 134 L Potassium Chloride Carbon Dioxide 18 L BUN Creatinine 1.8 H Glucose 192 H POC Glucose 175 H Lactic Acid Calcium Ionized Calcium Phosphorus Magnesium Direct Bilirubin AST ALT Alkaline Phosphatase Lactate Dehydrogenase Troponin T C-Reactive Protein Total Protein Albumin Prealbumin Triglycerides Cholesterol LDL Cholesterol Direct HDL Cholesterol 25-OH Vitamin D Total PTH Intact Urine pH Urine WBC (Auto) Urine Creatinine Urine Total Protein Fluid Total Protein Vancomycin Trough Rheumatoid Factor Complement C4 Miscellaneous Test Crossmatch 09/05/16 09/05/16 09/05/16 11:38 17:48 23:22 WBC RBC Hgb Hct MCV MCH MCHC RDW Plt Count Lymph % (Auto) [place] % (Auto) Lymph # [place] # Baso # Seg Neutrophils % Seg Neuts % (Manual) Lymphocytes % (Manual) Monocytes % (Manual) Eosinophils % (Manual) Basophils % (Manual) Nucleated RBC % Seg Neutrophils # Seg Neutrophils # Man Lymphocytes # (Manual) Monocytes # (Manual) Eosinophils # (Manual) Basophils # (Manual) PT INR Fibrinogen dRVVT Confirm Interp Factor V Activity POC ABG pH POC ABG pCO2 POC ABG pO2 ABG pO2 ABG HCO3 ABG Base Excess ABG Hemoglobin Oxyhemoglobin Sodium Potassium Chloride Carbon Dioxide BUN Creatinine Glucose POC Glucose 164 H 186 H 195 H Lactic Acid Calcium Ionized Calcium Phosphorus Magnesium Direct Bilirubin AST ALT Alkaline Phosphatase Lactate Dehydrogenase Troponin T C-Reactive Protein Total Protein Albumin Prealbumin Triglycerides Cholesterol LDL Cholesterol Direct HDL Cholesterol 25-OH Vitamin D Total PTH Intact Urine pH Urine WBC (Auto) Urine Creatinine Urine Total Protein Fluid Total Protein Vancomycin Trough Rheumatoid Factor Complement C4 Miscellaneous Test Crossmatch 09/06/16 09/06/16 09/06/16 04:12 05:59 07:32 WBC RBC Hgb Hct MCV MCH MCHC RDW Plt Count Lymph % (Auto) [place] % (Auto) Lymph # [place] # Baso # Seg Neutrophils % Seg Neuts % (Manual) Lymphocytes % (Manual) Monocytes % (Manual) Eosinophils % (Manual) Basophils % (Manual) Nucleated RBC % Seg Neutrophils # Seg Neutrophils # Man Lymphocytes # (Manual) Monocytes # (Manual) Eosinophils # (Manual) Basophils # (Manual) PT INR Fibrinogen dRVVT Confirm Interp Factor V Activity POC ABG pH 7.514 H POC ABG pCO2 29.1 L POC ABG pO2 72 L ABG pO2 ABG HCO3 ABG Base Excess ABG Hemoglobin Oxyhemoglobin Sodium 133 L Potassium 3.4 L Chloride 94.9 L Carbon Dioxide 19 L BUN 30 H Creatinine 2.1 H Glucose 139 H POC Glucose 146 H Lactic Acid Calcium Ionized Calcium Phosphorus Magnesium Direct Bilirubin AST ALT Alkaline Phosphatase Lactate Dehydrogenase Troponin T C-Reactive Protein Total Protein Albumin Prealbumin Triglycerides Cholesterol LDL Cholesterol Direct HDL Cholesterol 25-OH Vitamin D Total PTH Intact Urine pH Urine WBC (Auto) Urine Creatinine Urine Total Protein Fluid Total Protein Vancomycin Trough Rheumatoid Factor Complement C4 Miscellaneous Test Crossmatch 09/06/16 09/06/16 09/06/16 11:57 17:58 19:02 WBC RBC Hgb Hct MCV MCH MCHC RDW Plt Count Lymph % (Auto) [place] % (Auto) Lymph # [place] # Baso # Seg Neutrophils % Seg Neuts % (Manual) Lymphocytes % (Manual) Monocytes % (Manual) Eosinophils % (Manual) Basophils % (Manual) Nucleated RBC % Seg Neutrophils # Seg Neutrophils # Man Lymphocytes # (Manual) Monocytes # (Manual) Eosinophils # (Manual) Basophils # (Manual) PT INR Fibrinogen dRVVT Confirm Interp Factor V Activity POC ABG pH 7.465 H POC ABG pCO2 32.0 L POC ABG pO2 ABG pO2 ABG HCO3 ABG Base Excess ABG Hemoglobin Oxyhemoglobin Sodium Potassium Chloride Carbon Dioxide BUN Creatinine Glucose POC Glucose 165 H 160 H Lactic Acid Calcium Ionized Calcium Phosphorus Magnesium Direct Bilirubin AST ALT Alkaline Phosphatase Lactate Dehydrogenase Troponin T C-Reactive Protein Total Protein Albumin Prealbumin Triglycerides Cholesterol LDL Cholesterol Direct HDL Cholesterol 25-OH Vitamin D Total PTH Intact Urine pH Urine WBC (Auto) Urine Creatinine Urine Total Protein Fluid Total Protein Vancomycin Trough Rheumatoid Factor Complement C4 Miscellaneous Test Crossmatch 09/06/16 09/07/16 09/07/16 23:45 02:47 02:47 WBC RBC Hgb Hct MCV MCH MCHC RDW Plt Count Lymph % (Auto) [place] % (Auto) Lymph # [place] # Baso # Seg Neutrophils % Seg Neuts % (Manual) Lymphocytes % (Manual) Monocytes % (Manual) Eosinophils % (Manual) Basophils % (Manual) Nucleated RBC % Seg Neutrophils # Seg Neutrophils # Man Lymphocytes # (Manual) Monocytes # (Manual) Eosinophils # (Manual) Basophils # (Manual) PT INR Fibrinogen dRVVT Confirm Interp Factor V Activity POC ABG pH POC ABG pCO2 POC ABG pO2 ABG pO2 ABG HCO3 ABG Base Excess ABG Hemoglobin Oxyhemoglobin Sodium Potassium Chloride Carbon Dioxide BUN Creatinine Glucose POC Glucose 204 H Lactic Acid Calcium Ionized Calcium Phosphorus Magnesium Direct Bilirubin AST ALT Alkaline Phosphatase Lactate Dehydrogenase Troponin T C-Reactive Protein Total Protein Albumin Prealbumin Triglycerides Cholesterol LDL Cholesterol Direct HDL Cholesterol 25-OH Vitamin D Total PTH Intact Urine pH Urine WBC (Auto) 68.0 H Urine Creatinine 106.1 H Urine Total Protein Fluid Total Protein Vancomycin Trough Rheumatoid Factor Complement C4 Miscellaneous Test Crossmatch 09/07/16 09/07/16 09/07/16 04:50 06:19 06:39 WBC RBC Hgb Hct MCV MCH MCHC RDW Plt Count Lymph % (Auto) [place] % (Auto) Lymph # [place] # Baso # Seg Neutrophils % Seg Neuts % (Manual) Lymphocytes % (Manual) Monocytes % (Manual) Eosinophils % (Manual) Basophils % (Manual) Nucleated RBC % Seg Neutrophils # Seg Neutrophils # Man Lymphocytes # (Manual) Monocytes # (Manual) Eosinophils # (Manual) Basophils # (Manual) PT INR Fibrinogen dRVVT Confirm Interp Factor V Activity POC ABG pH 7.457 H POC ABG pCO2 32.1 L POC ABG pO2 76 L ABG pO2 ABG HCO3 ABG Base Excess ABG Hemoglobin Oxyhemoglobin Sodium 132 L Potassium Chloride 94.7 L Carbon Dioxide BUN 53 H Creatinine 2.9 H Glucose 151 H POC Glucose 149 H Lactic Acid Calcium Ionized Calcium Phosphorus Magnesium Direct Bilirubin AST ALT Alkaline Phosphatase Lactate Dehydrogenase Troponin T C-Reactive Protein Total Protein Albumin Prealbumin Triglycerides Cholesterol LDL Cholesterol Direct HDL Cholesterol 25-OH Vitamin D Total PTH Intact Urine pH Urine WBC (Auto) Urine Creatinine Urine Total Protein Fluid Total Protein Vancomycin Trough Rheumatoid Factor Complement C4 Miscellaneous Test Crossmatch 09/07/16 09/07/16 09/07/16 09:20 11:43 11:43 WBC 19.4 H RBC Hgb 8.3 L Hct 26.4 L D MCV 72 L D MCH 22 L MCHC RDW 17.9 H Plt Count Lymph % (Auto) 8.5 L [place] % (Auto) Lymph # [place] # 1.0 H Baso # Seg Neutrophils % 85.8 H Seg Neuts % (Manual) Lymphocytes % (Manual) Monocytes % (Manual) Eosinophils % (Manual) Basophils % (Manual) Nucleated RBC % Seg Neutrophils # 16.6 H Seg Neutrophils # Man Lymphocytes # (Manual) Monocytes # (Manual) Eosinophils # (Manual) Basophils # (Manual) PT INR Fibrinogen dRVVT Confirm Interp Factor V Activity POC ABG pH POC ABG pCO2 POC ABG pO2 ABG pO2 ABG HCO3 ABG Base Excess ABG Hemoglobin Oxyhemoglobin Sodium 134 L Potassium Chloride 97.2 L Carbon Dioxide 20 L BUN 58 H Creatinine 2.9 H Glucose 147 H POC Glucose Lactic Acid Calcium Ionized Calcium Phosphorus 2.40 L Magnesium 2.40 H Direct Bilirubin AST ALT Alkaline Phosphatase Lactate Dehydrogenase Troponin T C-Reactive Protein Total Protein 5.8 L Albumin 2.2 L Prealbumin Triglycerides Cholesterol LDL Cholesterol Direct HDL Cholesterol 25-OH Vitamin D Total PTH Intact Urine pH Urine WBC (Auto) Urine Creatinine Urine Total Protein Fluid Total Protein Vancomycin Trough Rheumatoid Factor Complement C4 58 H Miscellaneous Test Crossmatch 09/07/16 09/07/16 09/07/16 11:50 16:00 17:31 WBC RBC Hgb Hct MCV MCH MCHC RDW Plt Count Lymph % (Auto) [place] % (Auto) Lymph # [place] # Baso # Seg Neutrophils % Seg Neuts % (Manual) Lymphocytes % (Manual) Monocytes % (Manual) Eosinophils % (Manual) Basophils % (Manual) Nucleated RBC % Seg Neutrophils # Seg Neutrophils # Man Lymphocytes # (Manual) Monocytes # (Manual) Eosinophils # (Manual) Basophils # (Manual) PT INR Fibrinogen dRVVT Confirm Interp Factor V Activity POC ABG pH POC ABG pCO2 POC ABG pO2 158 H ABG pO2 ABG HCO3 ABG Base Excess ABG Hemoglobin Oxyhemoglobin Sodium Potassium Chloride Carbon Dioxide BUN Creatinine Glucose POC Glucose 175 H Lactic Acid Calcium Ionized Calcium Phosphorus Magnesium Direct Bilirubin AST ALT Alkaline Phosphatase Lactate Dehydrogenase Troponin T C-Reactive Protein Total Protein Albumin Prealbumin Triglycerides Cholesterol LDL Cholesterol Direct HDL Cholesterol 25-OH Vitamin D Total PTH Intact Urine pH Urine WBC (Auto) Urine Creatinine 66.3 H Urine Total Protein Fluid Total Protein Vancomycin Trough Rheumatoid Factor Complement C4 Miscellaneous Test Crossmatch 09/07/16 09/08/16 09/08/16 23:50 05:46 06:18 WBC 17.8 H RBC 3.58 L Hgb 8.1 L Hct 25.5 L MCV 71 L MCH 23 L MCHC RDW 18.4 H Plt Count Lymph % (Auto) [place] % (Auto) Lymph # [place] # Baso # Seg Neutrophils % Seg Neuts % (Manual) 92.0 H Lymphocytes % (Manual) 6.0 L Monocytes % (Manual) Eosinophils % (Manual) Basophils % (Manual) Nucleated RBC % Seg Neutrophils # Seg Neutrophils # Man 16.4 H Lymphocytes # (Manual) 1.1 L Monocytes # (Manual) Eosinophils # (Manual) Basophils # (Manual) PT INR Fibrinogen dRVVT Confirm Interp Factor V Activity POC ABG pH POC ABG pCO2 34.3 L POC ABG pO2 71 L ABG pO2 ABG HCO3 ABG Base Excess ABG Hemoglobin Oxyhemoglobin Sodium Potassium Chloride Carbon Dioxide BUN Creatinine Glucose POC Glucose 216 H Lactic Acid Calcium Ionized Calcium Phosphorus Magnesium Direct Bilirubin AST ALT Alkaline Phosphatase Lactate Dehydrogenase Troponin T C-Reactive Protein Total Protein Albumin Prealbumin Triglycerides Cholesterol LDL Cholesterol Direct HDL Cholesterol 25-OH Vitamin D Total PTH Intact Urine pH Urine WBC (Auto) Urine Creatinine Urine Total Protein Fluid Total Protein Vancomycin Trough Rheumatoid Factor Complement C4 Miscellaneous Test Crossmatch 09/08/16 09/08/16 09/08/16 06:18 06:51 10:55 WBC RBC Hgb Hct MCV MCH MCHC RDW Plt Count Lymph % (Auto) [place] % (Auto) Lymph # [place] # Baso # Seg Neutrophils % Seg Neuts % (Manual) Lymphocytes % (Manual) Monocytes % (Manual) Eosinophils % (Manual) Basophils % (Manual) Nucleated RBC % Seg Neutrophils # Seg Neutrophils # Man Lymphocytes # (Manual) Monocytes # (Manual) Eosinophils # (Manual) Basophils # (Manual) PT INR Fibrinogen dRVVT Confirm Interp Factor V Activity POC ABG pH POC ABG pCO2 POC ABG pO2 ABG pO2 ABG HCO3 ABG Base Excess ABG Hemoglobin Oxyhemoglobin Sodium 133 L Potassium Chloride 96.9 L Carbon Dioxide 20 L BUN 63 H Creatinine 2.7 H Glucose 195 H POC Glucose 204 H 169 H Lactic Acid Calcium Ionized Calcium Phosphorus Magnesium Direct Bilirubin AST ALT Alkaline Phosphatase Lactate Dehydrogenase Troponin T C-Reactive Protein Total Protein Albumin Prealbumin Triglycerides Cholesterol LDL Cholesterol Direct HDL Cholesterol 25-OH Vitamin D Total PTH Intact Urine pH Urine WBC (Auto) Urine Creatinine Urine Total Protein Fluid Total Protein Vancomycin Trough Rheumatoid Factor Complement C4 Miscellaneous Test Crossmatch 09/08/16 09/08/16 09/08/16 11:48 11:48 11:48 WBC RBC Hgb Hct MCV MCH MCHC RDW Plt Count Lymph % (Auto) [place] % (Auto) Lymph # [place] # Baso # Seg Neutrophils % Seg Neuts % (Manual) Lymphocytes % (Manual) Monocytes % (Manual) Eosinophils % (Manual) Basophils % (Manual) Nucleated RBC % Seg Neutrophils # Seg Neutrophils # Man Lymphocytes # (Manual) Monocytes # (Manual) Eosinophils # (Manual) Basophils # (Manual) PT INR Fibrinogen 750 H dRVVT Confirm Interp Factor V Activity POC ABG pH POC ABG pCO2 POC ABG pO2 ABG pO2 ABG HCO3 ABG Base Excess ABG Hemoglobin Oxyhemoglobin Sodium Potassium Chloride Carbon Dioxide BUN Creatinine Glucose POC Glucose Lactic Acid Calcium Ionized Calcium Phosphorus Magnesium Direct Bilirubin AST ALT Alkaline Phosphatase Lactate Dehydrogenase Troponin T C-Reactive Protein 15.70 H Total Protein Albumin Prealbumin Triglycerides Cholesterol LDL Cholesterol Direct HDL Cholesterol 25-OH Vitamin D Total PTH Intact Urine pH Urine WBC (Auto) Urine Creatinine Urine Total Protein Fluid Total Protein Vancomycin Trough Rheumatoid Factor 24 H Complement C4 Miscellaneous Test Crossmatch 09/08/16 09/08/16 09/09/16 15:35 18:25 00:24 WBC RBC Hgb Hct MCV MCH MCHC RDW Plt Count Lymph % (Auto) [place] % (Auto) Lymph # [place] # Baso # Seg Neutrophils % Seg Neuts % (Manual) Lymphocytes % (Manual) Monocytes % (Manual) Eosinophils % (Manual) Basophils % (Manual) Nucleated RBC % Seg Neutrophils # Seg Neutrophils # Man Lymphocytes # (Manual) Monocytes # (Manual) Eosinophils # (Manual) Basophils # (Manual) PT INR Fibrinogen dRVVT Confirm Interp Factor V Activity 182 H POC ABG pH POC ABG pCO2 POC ABG pO2 ABG pO2 ABG HCO3 ABG Base Excess ABG Hemoglobin Oxyhemoglobin Sodium Potassium Chloride Carbon Dioxide BUN Creatinine Glucose POC Glucose 184 H 216 H Lactic Acid Calcium Ionized Calcium Phosphorus Magnesium Direct Bilirubin AST ALT Alkaline Phosphatase Lactate Dehydrogenase Troponin T C-Reactive Protein Total Protein Albumin Prealbumin Triglycerides Cholesterol LDL Cholesterol Direct HDL Cholesterol 25-OH Vitamin D Total PTH Intact Urine pH Urine WBC (Auto) Urine Creatinine Urine Total Protein Fluid Total Protein Vancomycin Trough Rheumatoid Factor Complement C4 Miscellaneous Test Crossmatch 09/09/16 09/09/16 09/09/16 03:00 03:00 04:04 WBC 27.9 H RBC Hgb 8.7 L Hct 28.1 L MCV 72 L MCH 22 L MCHC RDW 18.4 H Plt Count 485 H Lymph % (Auto) [place] % (Auto) Lymph # [place] # Baso # Seg Neutrophils % Seg Neuts % (Manual) 77.0 H Lymphocytes % (Manual) 9.0 L Monocytes % (Manual) Eosinophils % (Manual) Basophils % (Manual) Nucleated RBC % Seg Neutrophils # Seg Neutrophils # Man 21.5 H Lymphocytes # (Manual) Monocytes # (Manual) 2.0 H Eosinophils # (Manual) Basophils # (Manual) PT INR Fibrinogen dRVVT Confirm Interp Factor V Activity POC ABG pH POC ABG pCO2 POC ABG pO2 121 H ABG pO2 ABG HCO3 ABG Base Excess ABG Hemoglobin Oxyhemoglobin Sodium 135 L Potassium Chloride 96.3 L Carbon Dioxide 21 L BUN 83 H Creatinine 3.0 H Glucose 135 H POC Glucose Lactic Acid Calcium Ionized Calcium Phosphorus Magnesium Direct Bilirubin AST ALT Alkaline Phosphatase Lactate Dehydrogenase Troponin T C-Reactive Protein Total Protein Albumin Prealbumin Triglycerides Cholesterol LDL Cholesterol Direct HDL Cholesterol 25-OH Vitamin D Total PTH Intact Urine pH Urine WBC (Auto) Urine Creatinine Urine Total Protein Fluid Total Protein Vancomycin Trough Rheumatoid Factor Complement C4 Miscellaneous Test Crossmatch 09/09/16 09/09/16 09/09/16 05:41 11:55 14:13 WBC RBC Hgb Hct MCV MCH MCHC RDW Plt Count Lymph % (Auto) [place] % (Auto) Lymph # [place] # Baso # Seg Neutrophils % Seg Neuts % (Manual) Lymphocytes % (Manual) Monocytes % (Manual) Eosinophils % (Manual) Basophils % (Manual) Nucleated RBC % Seg Neutrophils # Seg Neutrophils # Man Lymphocytes # (Manual) Monocytes # (Manual) Eosinophils # (Manual) Basophils # (Manual) PT INR Fibrinogen dRVVT Confirm Interp Factor V Activity POC ABG pH POC ABG pCO2 POC ABG pO2 ABG pO2 ABG HCO3 ABG Base Excess ABG Hemoglobin Oxyhemoglobin Sodium Potassium Chloride Carbon Dioxide BUN Creatinine Glucose POC Glucose 155 H 186 H Lactic Acid Calcium Ionized Calcium Phosphorus Magnesium Direct Bilirubin AST ALT Alkaline Phosphatase Lactate Dehydrogenase Troponin T C-Reactive Protein Total Protein Albumin Prealbumin Triglycerides Cholesterol LDL Cholesterol Direct HDL Cholesterol 25-OH Vitamin D Total PTH Intact Urine pH Urine WBC (Auto) 25.0 H Urine Creatinine Urine Total Protein Fluid Total Protein Vancomycin Trough Rheumatoid Factor Complement C4 Miscellaneous Test Crossmatch 09/09/16 09/09/16 09/10/16 17:33 23:13 05:09 WBC RBC Hgb Hct MCV MCH MCHC RDW Plt Count Lymph % (Auto) [place] % (Auto) Lymph # [place] # Baso # Seg Neutrophils % Seg Neuts % (Manual) Lymphocytes % (Manual) Monocytes % (Manual) Eosinophils % (Manual) Basophils % (Manual) Nucleated RBC % Seg Neutrophils # Seg Neutrophils # Man Lymphocytes # (Manual) Monocytes # (Manual) Eosinophils # (Manual) Basophils # (Manual) PT INR Fibrinogen dRVVT Confirm Interp Factor V Activity POC ABG pH POC ABG pCO2 POC ABG pO2 74 L ABG pO2 ABG HCO3 ABG Base Excess ABG Hemoglobin Oxyhemoglobin Sodium Potassium Chloride Carbon Dioxide BUN Creatinine Glucose POC Glucose 211 H 215 H Lactic Acid Calcium Ionized Calcium Phosphorus Magnesium Direct Bilirubin AST ALT Alkaline Phosphatase Lactate Dehydrogenase Troponin T C-Reactive Protein Total Protein Albumin Prealbumin Triglycerides Cholesterol LDL Cholesterol Direct HDL Cholesterol 25-OH Vitamin D Total PTH Intact Urine pH Urine WBC (Auto) Urine Creatinine Urine Total Protein Fluid Total Protein Vancomycin Trough Rheumatoid Factor Complement C4 Miscellaneous Test Crossmatch 09/10/16 09/10/16 09/10/16 05:17 05:17 11:31 WBC 15.8 H RBC 3.25 L Hgb 7.3 L Hct 22.9 L MCV 71 L MCH 23 L MCHC RDW 18.4 H Plt Count Lymph % (Auto) [place] % (Auto) Lymph # [place] # Baso # Seg Neutrophils % Seg Neuts % (Manual) 91.0 H Lymphocytes % (Manual) 4.0 L Monocytes % (Manual) Eosinophils % (Manual) Basophils % (Manual) Nucleated RBC % Seg Neutrophils # Seg Neutrophils # Man 14.4 H Lymphocytes # (Manual) 0.6 L Monocytes # (Manual) Eosinophils # (Manual) Basophils # (Manual) PT INR Fibrinogen dRVVT Confirm Interp Factor V Activity POC ABG pH POC ABG pCO2 POC ABG pO2 ABG pO2 ABG HCO3 ABG Base Excess ABG Hemoglobin Oxyhemoglobin Sodium Potassium Chloride Carbon Dioxide 21 L BUN 93 H Creatinine 2.9 H Glucose 146 H POC Glucose 188 H Lactic Acid Calcium 8.1 L Ionized Calcium Phosphorus Magnesium Direct Bilirubin AST ALT Alkaline Phosphatase Lactate Dehydrogenase Troponin T C-Reactive Protein Total Protein Albumin Prealbumin Triglycerides Cholesterol LDL Cholesterol Direct HDL Cholesterol 25-OH Vitamin D Total PTH Intact Urine pH Urine WBC (Auto) Urine Creatinine Urine Total Protein Fluid Total Protein Vancomycin Trough Rheumatoid Factor Complement C4 Miscellaneous Test Crossmatch 09/10/16 09/10/16 09/10/16 13:17 17:20 23:32 WBC RBC Hgb Hct MCV MCH MCHC RDW Plt Count Lymph % (Auto) [place] % (Auto) Lymph # [place] # Baso # Seg Neutrophils % Seg Neuts % (Manual) Lymphocytes % (Manual) Monocytes % (Manual) Eosinophils % (Manual) Basophils % (Manual) Nucleated RBC % Seg Neutrophils # Seg Neutrophils # Man Lymphocytes # (Manual) Monocytes # (Manual) Eosinophils # (Manual) Basophils # (Manual) PT INR Fibrinogen dRVVT Confirm Interp Factor V Activity POC ABG pH POC ABG pCO2 POC ABG pO2 ABG pO2 ABG HCO3 ABG Base Excess ABG Hemoglobin Oxyhemoglobin Sodium Potassium Chloride Carbon Dioxide BUN Creatinine Glucose POC Glucose 199 H 186 H Lactic Acid Calcium Ionized Calcium Phosphorus Magnesium Direct Bilirubin AST ALT Alkaline Phosphatase Lactate Dehydrogenase Troponin T C-Reactive Protein Total Protein Albumin Prealbumin Triglycerides Cholesterol LDL Cholesterol Direct HDL Cholesterol 25-OH Vitamin D Total PTH Intact Urine pH Urine WBC (Auto) Urine Creatinine Urine Total Protein Fluid Total Protein Vancomycin Trough Rheumatoid Factor Complement C4 Miscellaneous Test Crossmatch See Detail 09/11/16 09/11/16 09/11/16 05:10 05:10 05:17 WBC 28.4 H RBC Hgb 9.2 L Hct 29.3 L D MCV 73 L MCH 23 L MCHC RDW 18.9 H Plt Count 452 H Lymph % (Auto) [place] % (Auto) Lymph # [place] # Baso # Seg Neutrophils % Seg Neuts % (Manual) 89.5 H Lymphocytes % (Manual) 2.0 L Monocytes % (Manual) Eosinophils % (Manual) Basophils % (Manual) Nucleated RBC % Seg Neutrophils # Seg Neutrophils # Man 25.4 H Lymphocytes # (Manual) 0.6 L Monocytes # (Manual) 1.3 H Eosinophils # (Manual) Basophils # (Manual) PT INR Fibrinogen dRVVT Confirm Interp Factor V Activity POC ABG pH POC ABG pCO2 POC ABG pO2 ABG pO2 ABG HCO3 ABG Base Excess ABG Hemoglobin Oxyhemoglobin Sodium 136 L Potassium Chloride Carbon Dioxide 18 L BUN 107 H Creatinine 2.6 H Glucose 187 H POC Glucose 230 H Lactic Acid Calcium 8.3 L Ionized Calcium Phosphorus Magnesium Direct Bilirubin AST ALT Alkaline Phosphatase Lactate Dehydrogenase Troponin T C-Reactive Protein Total Protein Albumin Prealbumin Triglycerides Cholesterol LDL Cholesterol Direct HDL Cholesterol 25-OH Vitamin D Total PTH Intact Urine pH Urine WBC (Auto) Urine Creatinine Urine Total Protein Fluid Total Protein Vancomycin Trough Rheumatoid Factor Complement C4 Miscellaneous Test Crossmatch 09/11/16 09/11/16 09/11/16 05:55 12:02 17:32 WBC RBC Hgb Hct MCV MCH MCHC RDW Plt Count Lymph % (Auto) [place] % (Auto) Lymph # [place] # Baso # Seg Neutrophils % Seg Neuts % (Manual) Lymphocytes % (Manual) Monocytes % (Manual) Eosinophils % (Manual) Basophils % (Manual) Nucleated RBC % Seg Neutrophils # Seg Neutrophils # Man Lymphocytes # (Manual) Monocytes # (Manual) Eosinophils # (Manual) Basophils # (Manual) PT INR Fibrinogen dRVVT Confirm Interp Factor V Activity POC ABG pH POC ABG pCO2 33.8 L POC ABG pO2 ABG pO2 ABG HCO3 ABG Base Excess ABG Hemoglobin Oxyhemoglobin Sodium Potassium Chloride Carbon Dioxide BUN Creatinine Glucose POC Glucose 191 H 239 H Lactic Acid Calcium Ionized Calcium Phosphorus Magnesium Direct Bilirubin AST ALT Alkaline Phosphatase Lactate Dehydrogenase Troponin T C-Reactive Protein Total Protein Albumin Prealbumin Triglycerides Cholesterol LDL Cholesterol Direct HDL Cholesterol 25-OH Vitamin D Total PTH Intact Urine pH Urine WBC (Auto) Urine Creatinine Urine Total Protein Fluid Total Protein Vancomycin Trough Rheumatoid Factor Complement C4 Miscellaneous Test Crossmatch 09/11/16 09/12/16 09/12/16 23:52 05:09 05:32 WBC RBC Hgb Hct MCV MCH MCHC RDW Plt Count Lymph % (Auto) [place] % (Auto) Lymph # [place] # Baso # Seg Neutrophils % Seg Neuts % (Manual) Lymphocytes % (Manual) Monocytes % (Manual) Eosinophils % (Manual) Basophils % (Manual) Nucleated RBC % Seg Neutrophils # Seg Neutrophils # Man Lymphocytes # (Manual) Monocytes # (Manual) Eosinophils # (Manual) Basophils # (Manual) PT INR Fibrinogen dRVVT Confirm Interp Factor V Activity POC ABG pH POC ABG pCO2 34.6 L POC ABG pO2 ABG pO2 ABG HCO3 ABG Base Excess ABG Hemoglobin Oxyhemoglobin Sodium Potassium Chloride Carbon Dioxide BUN Creatinine Glucose POC Glucose 265 H 184 H Lactic Acid Calcium Ionized Calcium Phosphorus Magnesium Direct Bilirubin AST ALT Alkaline Phosphatase Lactate Dehydrogenase Troponin T C-Reactive Protein Total Protein Albumin Prealbumin Triglycerides Cholesterol LDL Cholesterol Direct HDL Cholesterol 25-OH Vitamin D Total PTH Intact Urine pH Urine WBC (Auto) Urine Creatinine Urine Total Protein Fluid Total Protein Vancomycin Trough Rheumatoid Factor Complement C4 Miscellaneous Test Crossmatch 09/12/16 09/12/16 09/12/16 06:45 06:45 07:22 WBC 31.7 H RBC 3.54 L Hgb 8.3 L Hct 25.9 L MCV 73 L MCH 23 L MCHC RDW 18.9 H Plt Count Lymph % (Auto) [place] % (Auto) Lymph # [place] # Baso # Seg Neutrophils % Seg Neuts % (Manual) 88.5 H Lymphocytes % (Manual) 4.5 L Monocytes % (Manual) Eosinophils % (Manual) Basophils % (Manual) Nucleated RBC % Seg Neutrophils # Seg Neutrophils # Man 28.1 H Lymphocytes # (Manual) Monocytes # (Manual) 1.0 H Eosinophils # (Manual) Basophils # (Manual) PT INR Fibrinogen dRVVT Confirm Interp Factor V Activity POC ABG pH POC ABG pCO2 POC ABG pO2 ABG pO2 ABG HCO3 ABG Base Excess ABG Hemoglobin Oxyhemoglobin Sodium Potassium Chloride Carbon Dioxide 20 L BUN 115 H Creatinine 2.7 H Glucose 165 H POC Glucose Lactic Acid Calcium 8.0 L Ionized Calcium Phosphorus Magnesium Direct Bilirubin AST ALT Alkaline Phosphatase Lactate Dehydrogenase Troponin T C-Reactive Protein Total Protein Albumin Prealbumin Triglycerides 217 H Cholesterol LDL Cholesterol Direct HDL Cholesterol 25-OH Vitamin D Total PTH Intact Urine pH Urine WBC (Auto) Urine Creatinine Urine Total Protein Fluid Total Protein Vancomycin Trough Rheumatoid Factor Complement C4 Miscellaneous Test Crossmatch 09/12/16 09/12/16 09/12/16 07:22 09:59 12:21 WBC RBC Hgb Hct MCV MCH MCHC RDW Plt Count Lymph % (Auto) [place] % (Auto) Lymph # [place] # Baso # Seg Neutrophils % Seg Neuts % (Manual) Lymphocytes % (Manual) Monocytes % (Manual) Eosinophils % (Manual) Basophils % (Manual) Nucleated RBC % Seg Neutrophils # Seg Neutrophils # Man Lymphocytes # (Manual) Monocytes # (Manual) Eosinophils # (Manual) Basophils # (Manual) PT INR Fibrinogen dRVVT Confirm Interp Positive H Factor V Activity POC ABG pH POC ABG pCO2 POC ABG pO2 ABG pO2 ABG HCO3 ABG Base Excess ABG Hemoglobin Oxyhemoglobin Sodium Potassium Chloride Carbon Dioxide BUN Creatinine Glucose POC Glucose 224 H Lactic Acid Calcium Ionized Calcium Phosphorus Magnesium Direct Bilirubin AST ALT Alkaline Phosphatase Lactate Dehydrogenase Troponin T C-Reactive Protein 1.70 H Total Protein Albumin Prealbumin Triglycerides Cholesterol LDL Cholesterol Direct HDL Cholesterol 25-OH Vitamin D Total PTH Intact Urine pH Urine WBC (Auto) Urine Creatinine Urine Total Protein Fluid Total Protein Vancomycin Trough Rheumatoid Factor Complement C4 Miscellaneous Test Crossmatch 09/12/16 09/12/16 09/13/16 16:51 23:28 04:00 WBC 45.0 H* RBC Hgb 9.4 L Hct MCV 75 L MCH 23 L MCHC RDW 19.0 H Plt Count 470 H Lymph % (Auto) [place] % (Auto) Lymph # [place] # Baso # Seg Neutrophils % Seg Neuts % (Manual) 89.0 H Lymphocytes % (Manual) 5.0 L Monocytes % (Manual) Eosinophils % (Manual) Basophils % (Manual) Nucleated RBC % Seg Neutrophils # Seg Neutrophils # Man 40.1 H Lymphocytes # (Manual) Monocytes # (Manual) Eosinophils # (Manual) Basophils # (Manual) PT INR Fibrinogen dRVVT Confirm Interp Factor V Activity POC ABG pH POC ABG pCO2 POC ABG pO2 ABG pO2 ABG HCO3 ABG Base Excess ABG Hemoglobin Oxyhemoglobin Sodium Potassium Chloride Carbon Dioxide BUN Creatinine Glucose POC Glucose 169 H 150 H Lactic Acid Calcium Ionized Calcium Phosphorus Magnesium Direct Bilirubin AST ALT Alkaline Phosphatase Lactate Dehydrogenase Troponin T C-Reactive Protein Total Protein Albumin Prealbumin Triglycerides Cholesterol LDL Cholesterol Direct HDL Cholesterol 25-OH Vitamin D Total PTH Intact Urine pH Urine WBC (Auto) Urine Creatinine Urine Total Protein Fluid Total Protein Vancomycin Trough Rheumatoid Factor Complement C4 Miscellaneous Test Crossmatch 07/09/13/16 09/13/16 04:00 11:26 17:31 WBC RBC Hgb Hct MCV MCH MCHC RDW Plt Count Lymph % (Auto) [place] % (Auto) Lymph # [place] # Baso # Seg Neutrophils % Seg Neuts % (Manual) Lymphocytes % (Manual) Monocytes % (Manual) Eosinophils % (Manual) Basophils % (Manual) Nucleated RBC % Seg Neutrophils # Seg Neutrophils # Man Lymphocytes # (Manual) Monocytes # (Manual) Eosinophils # (Manual) Basophils # (Manual) PT INR Fibrinogen dRVVT Confirm Interp Factor V Activity POC ABG pH POC ABG pCO2 POC ABG pO2 ABG pO2 ABG HCO3 ABG Base Excess ABG Hemoglobin Oxyhemoglobin Sodium Potassium Chloride Carbon Dioxide 20 L BUN 116 H Creatinine 3.0 H Glucose 172 H POC Glucose 140 H 183 H Lactic Acid Calcium Ionized Calcium Phosphorus Magnesium Direct Bilirubin AST ALT Alkaline Phosphatase Lactate Dehydrogenase Troponin T C-Reactive Protein Total Protein 6.2 L Albumin 2.9 L Prealbumin Triglycerides Cholesterol LDL Cholesterol Direct HDL Cholesterol 25-OH Vitamin D Total PTH Intact Urine pH Urine WBC (Auto) Urine Creatinine Urine Total Protein Fluid Total Protein Vancomycin Trough Rheumatoid Factor Complement C4 Miscellaneous Test Crossmatch 09/13/16 09/14/16 09/14/16 23:23 04:06 04:07 WBC 29.4 H RBC Hgb 8.9 L Hct 27.3 L MCV 75 L MCH 24 L MCHC RDW 19.1 H Plt Count Lymph % (Auto) [place] % (Auto) Lymph # [place] # Baso # Seg Neutrophils % Seg Neuts % (Manual) 84.0 H Lymphocytes % (Manual) 6.0 L Monocytes % (Manual) 9.0 H Eosinophils % (Manual) Basophils % (Manual) Nucleated RBC % Seg Neutrophils # Seg Neutrophils # Man 24.7 H Lymphocytes # (Manual) Monocytes # (Manual) 2.6 H Eosinophils # (Manual) Basophils # (Manual) PT INR Fibrinogen dRVVT Confirm Interp Factor V Activity POC ABG pH 7.342 L POC ABG pCO2 POC ABG pO2 116 H ABG pO2 ABG HCO3 ABG Base Excess ABG Hemoglobin Oxyhemoglobin Sodium Potassium Chloride Carbon Dioxide BUN Creatinine Glucose POC Glucose 154 H Lactic Acid Calcium Ionized Calcium Phosphorus Magnesium Direct Bilirubin AST ALT Alkaline Phosphatase Lactate Dehydrogenase Troponin T C-Reactive Protein Total Protein Albumin Prealbumin Triglycerides Cholesterol LDL Cholesterol Direct HDL Cholesterol 25-OH Vitamin D Total PTH Intact Urine pH Urine WBC (Auto) Urine Creatinine Urine Total Protein Fluid Total Protein Vancomycin Trough Rheumatoid Factor Complement C4 Miscellaneous Test Crossmatch 09/14/16 09/14/16 09/14/16 04:07 05:29 12:19 WBC RBC Hgb Hct MCV MCH MCHC RDW Plt Count Lymph % (Auto) [place] % (Auto) Lymph # [place] # Baso # Seg Neutrophils % Seg Neuts % (Manual) Lymphocytes % (Manual) Monocytes % (Manual) Eosinophils % (Manual) Basophils % (Manual) Nucleated RBC % Seg Neutrophils # Seg Neutrophils # Man Lymphocytes # (Manual) Monocytes # (Manual) Eosinophils # (Manual) Basophils # (Manual) PT INR Fibrinogen dRVVT Confirm Interp Factor V Activity POC ABG pH POC ABG pCO2 POC ABG pO2 ABG pO2 ABG HCO3 ABG Base Excess ABG Hemoglobin Oxyhemoglobin Sodium 136 L Potassium Chloride Carbon Dioxide 18 L BUN 121 H Creatinine 2.8 H Glucose 214 H POC Glucose 239 H 181 H Lactic Acid Calcium Ionized Calcium Phosphorus Magnesium Direct Bilirubin AST ALT Alkaline Phosphatase Lactate Dehydrogenase Troponin T C-Reactive Protein Total Protein Albumin Prealbumin Triglycerides Cholesterol LDL Cholesterol Direct HDL Cholesterol 25-OH Vitamin D Total PTH Intact Urine pH Urine WBC (Auto) Urine Creatinine Urine Total Protein Fluid Total Protein Vancomycin Trough Rheumatoid Factor Complement C4 Miscellaneous Test Crossmatch 09/14/16 09/14/16 09/15/16 18:12 23:37 05:00 WBC 26.1 H RBC 3.05 L Hgb 7.2 L Hct 22.9 L MCV 75 L MCH 24 L MCHC RDW 19.0 H Plt Count Lymph % (Auto) [place] % (Auto) Lymph # [place] # Baso # Seg Neutrophils % Seg Neuts % (Manual) Lymphocytes % (Manual) Monocytes % (Manual) Eosinophils % (Manual) Basophils % (Manual) Nucleated RBC % Seg Neutrophils # Seg Neutrophils # Man Lymphocytes # (Manual) Monocytes # (Manual) Eosinophils # (Manual) Basophils # (Manual) PT INR Fibrinogen dRVVT Confirm Interp Factor V Activity POC ABG pH POC ABG pCO2 POC ABG pO2 ABG pO2 ABG HCO3 ABG Base Excess ABG Hemoglobin Oxyhemoglobin Sodium Potassium Chloride Carbon Dioxide BUN Creatinine Glucose POC Glucose 266 H 154 H Lactic Acid Calcium Ionized Calcium Phosphorus Magnesium Direct Bilirubin AST ALT Alkaline Phosphatase Lactate Dehydrogenase Troponin T C-Reactive Protein Total Protein Albumin Prealbumin Triglycerides Cholesterol LDL Cholesterol Direct HDL Cholesterol 25-OH Vitamin D Total PTH Intact Urine pH Urine WBC (Auto) Urine Creatinine Urine Total Protein Fluid Total Protein Vancomycin Trough Rheumatoid Factor Complement C4 Miscellaneous Test Crossmatch 09/15/16 09/15/16 09/15/16 05:00 05:17 12:45 WBC RBC Hgb Hct MCV MCH MCHC RDW Plt Count Lymph % (Auto) [place] % (Auto) Lymph # [place] # Baso # Seg Neutrophils % Seg Neuts % (Manual) Lymphocytes % (Manual) Monocytes % (Manual) Eosinophils % (Manual) Basophils % (Manual) Nucleated RBC % Seg Neutrophils # Seg Neutrophils # Man Lymphocytes # (Manual) Monocytes # (Manual) Eosinophils # (Manual) Basophils # (Manual) PT INR Fibrinogen dRVVT Confirm Interp Factor V Activity POC ABG pH POC ABG pCO2 POC ABG pO2 ABG pO2 ABG HCO3 ABG Base Excess ABG Hemoglobin Oxyhemoglobin Sodium Potassium 5.2 H Chloride Carbon Dioxide 18 L BUN 139 H Creatinine 3.7 H Glucose 227 H POC Glucose 226 H 244 H Lactic Acid Calcium 8.3 L Ionized Calcium Phosphorus Magnesium Direct Bilirubin AST ALT Alkaline Phosphatase Lactate Dehydrogenase Troponin T C-Reactive Protein Total Protein Albumin Prealbumin Triglycerides Cholesterol LDL Cholesterol Direct HDL Cholesterol 25-OH Vitamin D Total PTH Intact Urine pH Urine WBC (Auto) Urine Creatinine Urine Total Protein Fluid Total Protein Vancomycin Trough Rheumatoid Factor Complement C4 Miscellaneous Test Crossmatch 09/15/16 09/15/16 09/15/16 14:32 17:33 23:35 WBC RBC Hgb Hct MCV MCH MCHC RDW Plt Count Lymph % (Auto) [place] % (Auto) Lymph # [place] # Baso # Seg Neutrophils % Seg Neuts % (Manual) Lymphocytes % (Manual) Monocytes % (Manual) Eosinophils % (Manual) Basophils % (Manual) Nucleated RBC % Seg Neutrophils # Seg Neutrophils # Man Lymphocytes # (Manual) Monocytes # (Manual) Eosinophils # (Manual) Basophils # (Manual) PT INR Fibrinogen dRVVT Confirm Interp Factor V Activity POC ABG pH POC ABG pCO2 27.7 L POC ABG pO2 120 H ABG pO2 ABG HCO3 ABG Base Excess ABG Hemoglobin Oxyhemoglobin Sodium Potassium Chloride Carbon Dioxide BUN Creatinine Glucose POC Glucose 232 H 167 H Lactic Acid Calcium Ionized Calcium Phosphorus Magnesium Direct Bilirubin AST ALT Alkaline Phosphatase Lactate Dehydrogenase Troponin T C-Reactive Protein Total Protein Albumin Prealbumin Triglycerides Cholesterol LDL Cholesterol Direct HDL Cholesterol 25-OH Vitamin D Total PTH Intact Urine pH Urine WBC (Auto) Urine Creatinine Urine Total Protein Fluid Total Protein Vancomycin Trough Rheumatoid Factor Complement C4 Miscellaneous Test Crossmatch 09/16/16 09/16/16 09/16/16 03:58 10:27 10:27 WBC 19.0 H RBC 2.77 L Hgb 6.5 L Hct 20.9 L MCV 76 L MCH 23 L MCHC RDW 19.3 H Plt Count Lymph % (Auto) 11.0 L [place] % (Auto) Lymph # [place] # 1.1 H Baso # Seg Neutrophils % 82.5 H Seg Neuts % (Manual) Lymphocytes % (Manual) Monocytes % (Manual) Eosinophils % (Manual) Basophils % (Manual) Nucleated RBC % Seg Neutrophils # 15.7 H Seg Neutrophils # Man Lymphocytes # (Manual) Monocytes # (Manual) Eosinophils # (Manual) Basophils # (Manual) PT INR Fibrinogen dRVVT Confirm Interp Factor V Activity POC ABG pH POC ABG pCO2 POC ABG pO2 ABG pO2 ABG HCO3 ABG Base Excess ABG Hemoglobin Oxyhemoglobin Sodium Potassium Chloride 109.3 H Carbon Dioxide 18 L BUN 139 H Creatinine 4.1 H Glucose 144 H POC Glucose 146 H Lactic Acid Calcium 8.1 L Ionized Calcium Phosphorus Magnesium Direct Bilirubin AST ALT Alkaline Phosphatase Lactate Dehydrogenase Troponin T C-Reactive Protein Total Protein Albumin Prealbumin Triglycerides Cholesterol LDL Cholesterol Direct HDL Cholesterol 25-OH Vitamin D Total PTH Intact Urine pH Urine WBC (Auto) Urine Creatinine Urine Total Protein Fluid Total Protein Vancomycin Trough Rheumatoid Factor Complement C4 Miscellaneous Test Crossmatch 09/16/16 09/16/16 09/16/16 12:04 12:10 13:55 WBC RBC Hgb Hct MCV MCH MCHC RDW Plt Count Lymph % (Auto) [place] % (Auto) Lymph # [place] # Baso # Seg Neutrophils % Seg Neuts % (Manual) Lymphocytes % (Manual) Monocytes % (Manual) Eosinophils % (Manual) Basophils % (Manual) Nucleated RBC % Seg Neutrophils # Seg Neutrophils # Man Lymphocytes # (Manual) Monocytes # (Manual) Eosinophils # (Manual) Basophils # (Manual) PT INR Fibrinogen dRVVT Confirm Interp Factor V Activity POC ABG pH POC ABG pCO2 32.9 L POC ABG pO2 ABG pO2 ABG HCO3 ABG Base Excess ABG Hemoglobin Oxyhemoglobin Sodium Potassium Chloride Carbon Dioxide BUN Creatinine Glucose POC Glucose 185 H Lactic Acid Calcium Ionized Calcium Phosphorus Magnesium Direct Bilirubin AST ALT Alkaline Phosphatase Lactate Dehydrogenase Troponin T C-Reactive Protein Total Protein Albumin Prealbumin Triglycerides Cholesterol LDL Cholesterol Direct HDL Cholesterol 25-OH Vitamin D Total PTH Intact Urine pH Urine WBC (Auto) Urine Creatinine Urine Total Protein Fluid Total Protein Vancomycin Trough Rheumatoid Factor Complement C4 Miscellaneous Test Crossmatch See Detail 09/16/16 09/16/16 09/16/16 17:55 19:19 23:48 WBC RBC Hgb Hct MCV MCH MCHC RDW Plt Count Lymph % (Auto) [place] % (Auto) Lymph # [place] # Baso # Seg Neutrophils % Seg Neuts % (Manual) Lymphocytes % (Manual) Monocytes % (Manual) Eosinophils % (Manual) Basophils % (Manual) Nucleated RBC % Seg Neutrophils # Seg Neutrophils # Man Lymphocytes # (Manual) Monocytes # (Manual) Eosinophils # (Manual) Basophils # (Manual) PT INR Fibrinogen dRVVT Confirm Interp Factor V Activity POC ABG pH POC ABG pCO2 POC ABG pO2 ABG pO2 ABG HCO3 ABG Base Excess ABG Hemoglobin Oxyhemoglobin Sodium Potassium Chloride Carbon Dioxide BUN Creatinine Glucose POC Glucose 222 H 107 H Lactic Acid Calcium Ionized Calcium Phosphorus Magnesium Direct Bilirubin AST ALT Alkaline Phosphatase Lactate Dehydrogenase Troponin T C-Reactive Protein Total Protein Albumin Prealbumin Triglycerides Cholesterol LDL Cholesterol Direct HDL Cholesterol 25-OH Vitamin D Total PTH Intact Urine pH Urine WBC (Auto) Urine Creatinine 47.4 H Urine Total Protein 16 H Fluid Total Protein Vancomycin Trough Rheumatoid Factor Complement C4 Miscellaneous Test Crossmatch 09/17/16 09/17/16 09/17/16 03:45 03:45 04:55 WBC 19.6 H RBC 3.41 L Hgb 8.5 L Hct 26.7 L MCV 78 L MCH 25 L MCHC RDW 19.9 H Plt Count Lymph % (Auto) 9.3 L [place] % (Auto) Lymph # [place] # 1.2 H Baso # Seg Neutrophils % 83.9 H Seg Neuts % (Manual) Lymphocytes % (Manual) Monocytes % (Manual) Eosinophils % (Manual) Basophils % (Manual) Nucleated RBC % Seg Neutrophils # 16.4 H Seg Neutrophils # Man Lymphocytes # (Manual) Monocytes # (Manual) Eosinophils # (Manual) Basophils # (Manual) PT INR Fibrinogen dRVVT Confirm Interp Factor V Activity POC ABG pH POC ABG pCO2 POC ABG pO2 ABG pO2 ABG HCO3 ABG Base Excess ABG Hemoglobin Oxyhemoglobin Sodium 146 H Potassium 5.1 H Chloride 110.9 H Carbon Dioxide 16 L BUN 146 H Creatinine 4.0 H Glucose 108 H POC Glucose 133 H Lactic Acid Calcium Ionized Calcium Phosphorus Magnesium 3.00 H Direct Bilirubin AST ALT Alkaline Phosphatase Lactate Dehydrogenase Troponin T C-Reactive Protein Total Protein Albumin Prealbumin Triglycerides Cholesterol LDL Cholesterol Direct HDL Cholesterol 25-OH Vitamin D Total PTH Intact Urine pH Urine WBC (Auto) Urine Creatinine Urine Total Protein Fluid Total Protein Vancomycin Trough Rheumatoid Factor Complement C4 Miscellaneous Test Crossmatch 09/17/16 09/17/16 09/17/16 11:15 17:33 23:47 WBC RBC Hgb Hct MCV MCH MCHC RDW Plt Count Lymph % (Auto) [place] % (Auto) Lymph # [place] # Baso # Seg Neutrophils % Seg Neuts % (Manual) Lymphocytes % (Manual) Monocytes % (Manual) Eosinophils % (Manual) Basophils % (Manual) Nucleated RBC % Seg Neutrophils # Seg Neutrophils # Man Lymphocytes # (Manual) Monocytes # (Manual) Eosinophils # (Manual) Basophils # (Manual) PT INR Fibrinogen dRVVT Confirm Interp Factor V Activity POC ABG pH POC ABG pCO2 POC ABG pO2 ABG pO2 ABG HCO3 ABG Base Excess ABG Hemoglobin Oxyhemoglobin Sodium Potassium Chloride Carbon Dioxide BUN Creatinine Glucose POC Glucose 176 H 246 H 148 H Lactic Acid Calcium Ionized Calcium Phosphorus Magnesium Direct Bilirubin AST ALT Alkaline Phosphatase Lactate Dehydrogenase Troponin T C-Reactive Protein Total Protein Albumin Prealbumin Triglycerides Cholesterol LDL Cholesterol Direct HDL Cholesterol 25-OH Vitamin D Total PTH Intact Urine pH Urine WBC (Auto) Urine Creatinine Urine Total Protein Fluid Total Protein Vancomycin Trough Rheumatoid Factor Complement C4 Miscellaneous Test Crossmatch 09/18/16 09/18/16 09/18/16 05:33 08:31 08:31 WBC 18.0 H RBC 3.17 L Hgb 9.0 L Hct 25.7 L MCV MCH MCHC 35 H RDW 20.4 H Plt Count Lymph % (Auto) [place] % (Auto) Lymph # [place] # Baso # Seg Neutrophils % Seg Neuts % (Manual) Lymphocytes % (Manual) Monocytes % (Manual) Eosinophils % (Manual) Basophils % (Manual) Nucleated RBC % Seg Neutrophils # Seg Neutrophils # Man Lymphocytes # (Manual) Monocytes # (Manual) Eosinophils # (Manual) Basophils # (Manual) PT INR Fibrinogen dRVVT Confirm Interp Factor V Activity POC ABG pH POC ABG pCO2 POC ABG pO2 ABG pO2 ABG HCO3 ABG Base Excess ABG Hemoglobin Oxyhemoglobin Sodium Potassium Chloride Carbon Dioxide 15 L BUN 124 H Creatinine 3.8 H Glucose POC Glucose 120 H Lactic Acid Calcium 8.1 L Ionized Calcium Phosphorus Magnesium Direct Bilirubin AST ALT Alkaline Phosphatase Lactate Dehydrogenase Troponin T C-Reactive Protein Total Protein Albumin Prealbumin Triglycerides Cholesterol LDL Cholesterol Direct HDL Cholesterol 25-OH Vitamin D Total PTH Intact Urine pH Urine WBC (Auto) Urine Creatinine Urine Total Protein Fluid Total Protein Vancomycin Trough Rheumatoid Factor Complement C4 Miscellaneous Test Crossmatch 09/18/16 09/18/16 09/18/16 12:03 15:34 17:50 WBC RBC Hgb Hct MCV MCH MCHC RDW Plt Count Lymph % (Auto) [place] % (Auto) Lymph # [place] # Baso # Seg Neutrophils % Seg Neuts % (Manual) Lymphocytes % (Manual) Monocytes % (Manual) Eosinophils % (Manual) Basophils % (Manual) Nucleated RBC % Seg Neutrophils # Seg Neutrophils # Man Lymphocytes # (Manual) Monocytes # (Manual) Eosinophils # (Manual) Basophils # (Manual) PT INR Fibrinogen dRVVT Confirm Interp Factor V Activity POC ABG pH POC ABG pCO2 25.7 L POC ABG pO2 66 L ABG pO2 ABG HCO3 ABG Base Excess ABG Hemoglobin Oxyhemoglobin Sodium Potassium Chloride Carbon Dioxide BUN Creatinine Glucose POC Glucose 156 H 220 H Lactic Acid Calcium Ionized Calcium Phosphorus Magnesium Direct Bilirubin AST ALT Alkaline Phosphatase Lactate Dehydrogenase Troponin T C-Reactive Protein Total Protein Albumin Prealbumin Triglycerides Cholesterol LDL Cholesterol Direct HDL Cholesterol 25-OH Vitamin D Total PTH Intact Urine pH Urine WBC (Auto) Urine Creatinine Urine Total Protein Fluid Total Protein Vancomycin Trough Rheumatoid Factor Complement C4 Miscellaneous Test Crossmatch 09/19/16 09/19/16 09/19/16 06:21 09:50 09:50 WBC 17.1 H RBC 3.49 L Hgb 9.0 L Hct 28.1 L MCV MCH 26 L MCHC RDW 20.8 H Plt Count Lymph % (Auto) 11.5 L [place] % (Auto) 7.5 H Lymph # [place] # 1.3 H Baso # Seg Neutrophils % 79.8 H Seg Neuts % (Manual) Lymphocytes % (Manual) Monocytes % (Manual) Eosinophils % (Manual) Basophils % (Manual) Nucleated RBC % Seg Neutrophils # 13.7 H Seg Neutrophils # Man Lymphocytes # (Manual) Monocytes # (Manual) Eosinophils # (Manual) Basophils # (Manual) PT INR Fibrinogen dRVVT Confirm Interp Factor V Activity POC ABG pH POC ABG pCO2 POC ABG pO2 ABG pO2 ABG HCO3 ABG Base Excess ABG Hemoglobin Oxyhemoglobin Sodium Potassium Chloride 108.6 H Carbon Dioxide 15 L BUN 125 H Creatinine 4.1 H Glucose 124 H POC Glucose 119 H Lactic Acid Calcium Ionized Calcium Phosphorus Magnesium Direct Bilirubin AST ALT Alkaline Phosphatase Lactate Dehydrogenase Troponin T C-Reactive Protein Total Protein Albumin Prealbumin Triglycerides Cholesterol LDL Cholesterol Direct HDL Cholesterol 25-OH Vitamin D Total PTH Intact Urine pH Urine WBC (Auto) Urine Creatinine Urine Total Protein Fluid Total Protein Vancomycin Trough Rheumatoid Factor Complement C4 Miscellaneous Test Crossmatch 09/19/16 09/19/16 09/19/16 11:25 17:53 23:36 WBC RBC Hgb Hct MCV MCH MCHC RDW Plt Count Lymph % (Auto) [place] % (Auto) Lymph # [place] # Baso # Seg Neutrophils % Seg Neuts % (Manual) Lymphocytes % (Manual) Monocytes % (Manual) Eosinophils % (Manual) Basophils % (Manual) Nucleated RBC % Seg Neutrophils # Seg Neutrophils # Man Lymphocytes # (Manual) Monocytes # (Manual) Eosinophils # (Manual) Basophils # (Manual) PT INR Fibrinogen dRVVT Confirm Interp Factor V Activity POC ABG pH POC ABG pCO2 POC ABG pO2 ABG pO2 ABG HCO3 ABG Base Excess ABG Hemoglobin Oxyhemoglobin Sodium Potassium Chloride Carbon Dioxide BUN Creatinine Glucose POC Glucose 160 H 245 H 121 H Lactic Acid Calcium Ionized Calcium Phosphorus Magnesium Direct Bilirubin AST ALT Alkaline Phosphatase Lactate Dehydrogenase Troponin T C-Reactive Protein Total Protein Albumin Prealbumin Triglycerides Cholesterol LDL Cholesterol Direct HDL Cholesterol 25-OH Vitamin D Total PTH Intact Urine pH Urine WBC (Auto) Urine Creatinine Urine Total Protein Fluid Total Protein Vancomycin Trough Rheumatoid Factor Complement C4 Miscellaneous Test Crossmatch 09/20/16 09/20/16 09/20/16 04:10 04:10 04:10 WBC 17.0 H RBC 3.21 L Hgb 8.2 L Hct 25.5 L MCV MCH 26 L MCHC RDW 20.9 H Plt Count Lymph % (Auto) [place] % (Auto) Lymph # [place] # Baso # Seg Neutrophils % Seg Neuts % (Manual) Lymphocytes % (Manual) Monocytes % (Manual) Eosinophils % (Manual) Basophils % (Manual) Nucleated RBC % Seg Neutrophils # Seg Neutrophils # Man Lymphocytes # (Manual) Monocytes # (Manual) Eosinophils # (Manual) Basophils # (Manual) PT INR Fibrinogen dRVVT Confirm Interp Factor V Activity POC ABG pH POC ABG pCO2 POC ABG pO2 ABG pO2 ABG HCO3 ABG Base Excess ABG Hemoglobin Oxyhemoglobin Sodium Potassium Chloride 111.0 H Carbon Dioxide 16 L BUN 129 H Creatinine 3.7 H Glucose 115 H POC Glucose Lactic Acid Calcium 8.2 L Ionized Calcium Phosphorus Magnesium Direct Bilirubin AST ALT Alkaline Phosphatase Lactate Dehydrogenase Troponin T C-Reactive Protein Total Protein Albumin Prealbumin Triglycerides 243 H Cholesterol LDL Cholesterol Direct HDL Cholesterol 25-OH Vitamin D Total PTH Intact Urine pH Urine WBC (Auto) Urine Creatinine Urine Total Protein Fluid Total Protein Vancomycin Trough Rheumatoid Factor Complement C4 Miscellaneous Test Crossmatch 09/20/16 09/20/16 09/20/16 05:40 11:52 16:50 WBC RBC Hgb Hct MCV MCH MCHC RDW Plt Count Lymph % (Auto) [place] % (Auto) Lymph # [place] # Baso # Seg Neutrophils % Seg Neuts % (Manual) Lymphocytes % (Manual) Monocytes % (Manual) Eosinophils % (Manual) Basophils % (Manual) Nucleated RBC % Seg Neutrophils # Seg Neutrophils # Man Lymphocytes # (Manual) Monocytes # (Manual) Eosinophils # (Manual) Basophils # (Manual) PT INR Fibrinogen dRVVT Confirm Interp Factor V Activity POC ABG pH POC ABG pCO2 POC ABG pO2 ABG pO2 ABG HCO3 ABG Base Excess ABG Hemoglobin Oxyhemoglobin Sodium Potassium Chloride Carbon Dioxide BUN Creatinine Glucose POC Glucose 131 H 183 H 236 H Lactic Acid Calcium Ionized Calcium Phosphorus Magnesium Direct Bilirubin AST ALT Alkaline Phosphatase Lactate Dehydrogenase Troponin T C-Reactive Protein Total Protein Albumin Prealbumin Triglycerides Cholesterol LDL Cholesterol Direct HDL Cholesterol 25-OH Vitamin D Total PTH Intact Urine pH Urine WBC (Auto) Urine Creatinine Urine Total Protein Fluid Total Protein Vancomycin Trough Rheumatoid Factor Complement C4 Miscellaneous Test Crossmatch 09/20/16 09/21/16 09/21/16 23:51 03:30 04:44 WBC RBC Hgb Hct MCV MCH MCHC RDW Plt Count Lymph % (Auto) [place] % (Auto) Lymph # [place] # Baso # Seg Neutrophils % Seg Neuts % (Manual) Lymphocytes % (Manual) Monocytes % (Manual) Eosinophils % (Manual) Basophils % (Manual) Nucleated RBC % Seg Neutrophils # Seg Neutrophils # Man Lymphocytes # (Manual) Monocytes # (Manual) Eosinophils # (Manual) Basophils # (Manual) PT INR Fibrinogen dRVVT Confirm Interp Factor V Activity POC ABG pH POC ABG pCO2 POC ABG pO2 ABG pO2 ABG HCO3 ABG Base Excess ABG Hemoglobin Oxyhemoglobin Sodium Potassium Chloride Carbon Dioxide BUN Creatinine Glucose POC Glucose 114 H 141 H Lactic Acid Calcium Ionized Calcium Phosphorus Magnesium 2.70 H Direct Bilirubin AST ALT Alkaline Phosphatase Lactate Dehydrogenase Troponin T C-Reactive Protein Total Protein Albumin Prealbumin Triglycerides Cholesterol LDL Cholesterol Direct HDL Cholesterol 25-OH Vitamin D Total PTH Intact Urine pH Urine WBC (Auto) Urine Creatinine Urine Total Protein Fluid Total Protein Vancomycin Trough Rheumatoid Factor Complement C4 Miscellaneous Test Crossmatch 09/21/16 09/21/16 09/21/16 07:45 07:45 10:01 WBC 13.8 H RBC 2.94 L Hgb 7.5 L Hct 23.5 L MCV MCH 26 L MCHC RDW 21.2 H Plt Count Lymph % (Auto) 6.9 L [place] % (Auto) 9.4 H Lymph # 0.9 L [place] # 1.3 H Baso # Seg Neutrophils % 83.2 H Seg Neuts % (Manual) Lymphocytes % (Manual) Monocytes % (Manual) Eosinophils % (Manual) Basophils % (Manual) Nucleated RBC % Seg Neutrophils # 11.5 H Seg Neutrophils # Man Lymphocytes # (Manual) Monocytes # (Manual) Eosinophils # (Manual) Basophils # (Manual) PT INR Fibrinogen dRVVT Confirm Interp Factor V Activity POC ABG pH 7.308 L POC ABG pCO2 31.9 L POC ABG pO2 148 H ABG pO2 ABG HCO3 ABG Base Excess ABG Hemoglobin Oxyhemoglobin Sodium 147 H Potassium Chloride 114.2 H Carbon Dioxide 15 L BUN 120 H Creatinine 3.9 H Glucose 156 H POC Glucose Lactic Acid Calcium 8.2 L Ionized Calcium Phosphorus Magnesium Direct Bilirubin AST ALT Alkaline Phosphatase Lactate Dehydrogenase Troponin T C-Reactive Protein Total Protein Albumin Prealbumin Triglycerides Cholesterol LDL Cholesterol Direct HDL Cholesterol 25-OH Vitamin D Total PTH Intact Urine pH Urine WBC (Auto) Urine Creatinine Urine Total Protein Fluid Total Protein Vancomycin Trough Rheumatoid Factor Complement C4 Miscellaneous Test Crossmatch 09/21/16 09/21/16 09/21/16 12:00 12:03 13:00 WBC RBC Hgb Hct MCV MCH MCHC RDW Plt Count Lymph % (Auto) [place] % (Auto) Lymph # [place] # Baso # Seg Neutrophils % Seg Neuts % (Manual) Lymphocytes % (Manual) Monocytes % (Manual) Eosinophils % (Manual) Basophils % (Manual) Nucleated RBC % Seg Neutrophils # Seg Neutrophils # Man Lymphocytes # (Manual) Monocytes # (Manual) Eosinophils # (Manual) Basophils # (Manual) PT INR Fibrinogen dRVVT Confirm Interp Factor V Activity POC ABG pH POC ABG pCO2 POC ABG pO2 ABG pO2 ABG HCO3 ABG Base Excess ABG Hemoglobin Oxyhemoglobin Sodium Potassium Chloride Carbon Dioxide BUN Creatinine Glucose POC Glucose 163 H Lactic Acid Calcium Ionized Calcium Phosphorus Magnesium Direct Bilirubin AST ALT Alkaline Phosphatase Lactate Dehydrogenase Troponin T C-Reactive Protein Total Protein Albumin Prealbumin Triglycerides Cholesterol LDL Cholesterol Direct HDL Cholesterol 25-OH Vitamin D Total PTH Intact Urine pH Urine WBC (Auto) Urine Creatinine 54.8 H Urine Total Protein Fluid Total Protein Vancomycin Trough 2.3 L Rheumatoid Factor Complement C4 Miscellaneous Test Crossmatch 09/21/16 09/21/16 09/22/16 16:51 23:17 06:27 WBC RBC Hgb Hct MCV MCH MCHC RDW Plt Count Lymph % (Auto) [place] % (Auto) Lymph # [place] # Baso # Seg Neutrophils % Seg Neuts % (Manual) Lymphocytes % (Manual) Monocytes % (Manual) Eosinophils % (Manual) Basophils % (Manual) Nucleated RBC % Seg Neutrophils # Seg Neutrophils # Man Lymphocytes # (Manual) Monocytes # (Manual) Eosinophils # (Manual) Basophils # (Manual) PT INR Fibrinogen dRVVT Confirm Interp Factor V Activity POC ABG pH POC ABG pCO2 POC ABG pO2 ABG pO2 ABG HCO3 ABG Base Excess ABG Hemoglobin Oxyhemoglobin Sodium Potassium Chloride Carbon Dioxide BUN Creatinine Glucose POC Glucose 206 H 114 H 115 H Lactic Acid Calcium Ionized Calcium Phosphorus Magnesium Direct Bilirubin AST ALT Alkaline Phosphatase Lactate Dehydrogenase Troponin T C-Reactive Protein Total Protein Albumin Prealbumin Triglycerides Cholesterol LDL Cholesterol Direct HDL Cholesterol 25-OH Vitamin D Total PTH Intact Urine pH Urine WBC (Auto) Urine Creatinine Urine Total Protein Fluid Total Protein Vancomycin Trough Rheumatoid Factor Complement C4 Miscellaneous Test Crossmatch 09/22/16 09/22/16 09/22/16 07:50 07:50 12:00 WBC 17.8 H RBC 3.04 L Hgb 8.0 L Hct 24.7 L MCV MCH 26 L MCHC RDW 21.6 H Plt Count Lymph % (Auto) [place] % (Auto) Lymph # [place] # Baso # Seg Neutrophils % Seg Neuts % (Manual) Lymphocytes % (Manual) Monocytes % (Manual) Eosinophils % (Manual) Basophils % (Manual) Nucleated RBC % Seg Neutrophils # Seg Neutrophils # Man Lymphocytes # (Manual) Monocytes # (Manual) Eosinophils # (Manual) Basophils # (Manual) PT INR Fibrinogen dRVVT Confirm Interp Factor V Activity POC ABG pH POC ABG pCO2 POC ABG pO2 ABG pO2 ABG HCO3 ABG Base Excess ABG Hemoglobin Oxyhemoglobin Sodium 150 H Potassium Chloride 118.2 H Carbon Dioxide 14 L BUN 111 H Creatinine 3.7 H Glucose 157 H POC Glucose 183 H Lactic Acid Calcium Ionized Calcium Phosphorus Magnesium Direct Bilirubin AST ALT Alkaline Phosphatase Lactate Dehydrogenase Troponin T C-Reactive Protein Total Protein Albumin Prealbumin Triglycerides Cholesterol LDL Cholesterol Direct HDL Cholesterol 25-OH Vitamin D Total PTH Intact Urine pH Urine WBC (Auto) Urine Creatinine Urine Total Protein Fluid Total Protein Vancomycin Trough Rheumatoid Factor Complement C4 Miscellaneous Test Crossmatch 09/22/16 09/22/16 09/23/16 17:29 23:10 05:00 WBC 19.2 H RBC 3.13 L Hgb 8.0 L Hct 25.2 L MCV MCH 26 L MCHC RDW 22.1 H Plt Count Lymph % (Auto) [place] % (Auto) Lymph # [place] # Baso # Seg Neutrophils % Seg Neuts % (Manual) 92.0 H Lymphocytes % (Manual) 3.0 L Monocytes % (Manual) Eosinophils % (Manual) Basophils % (Manual) Nucleated RBC % Seg Neutrophils # Seg Neutrophils # Man 17.7 H Lymphocytes # (Manual) 0.6 L Monocytes # (Manual) Eosinophils # (Manual) Basophils # (Manual) PT INR Fibrinogen dRVVT Confirm Interp Factor V Activity POC ABG pH POC ABG pCO2 POC ABG pO2 ABG pO2 ABG HCO3 ABG Base Excess ABG Hemoglobin Oxyhemoglobin Sodium Potassium Chloride Carbon Dioxide BUN Creatinine Glucose POC Glucose 197 H 169 H Lactic Acid Calcium Ionized Calcium Phosphorus Magnesium Direct Bilirubin AST ALT Alkaline Phosphatase Lactate Dehydrogenase Troponin T C-Reactive Protein Total Protein Albumin Prealbumin Triglycerides Cholesterol LDL Cholesterol Direct HDL Cholesterol 25-OH Vitamin D Total PTH Intact Urine pH Urine WBC (Auto) Urine Creatinine Urine Total Protein Fluid Total Protein Vancomycin Trough Rheumatoid Factor Complement C4 Miscellaneous Test Crossmatch 09/23/16 09/23/16 09/23/16 05:00 05:00 05:10 WBC RBC Hgb Hct MCV MCH MCHC RDW Plt Count Lymph % (Auto) [place] % (Auto) Lymph # [place] # Baso # Seg Neutrophils % Seg Neuts % (Manual) Lymphocytes % (Manual) Monocytes % (Manual) Eosinophils % (Manual) Basophils % (Manual) Nucleated RBC % Seg Neutrophils # Seg Neutrophils # Man Lymphocytes # (Manual) Monocytes # (Manual) Eosinophils # (Manual) Basophils # (Manual) PT INR Fibrinogen dRVVT Confirm Interp Factor V Activity POC ABG pH POC ABG pCO2 POC ABG pO2 ABG pO2 ABG HCO3 ABG Base Excess ABG Hemoglobin Oxyhemoglobin Sodium 147 H Potassium 3.2 L Chloride 115.7 H Carbon Dioxide 13 L BUN 111 H Creatinine 3.8 H Glucose 194 H POC Glucose 188 H Lactic Acid Calcium 7.3 L D Ionized Calcium Phosphorus Magnesium Direct Bilirubin AST ALT Alkaline Phosphatase Lactate Dehydrogenase Troponin T C-Reactive Protein 3.20 H Total Protein Albumin Prealbumin Triglycerides Cholesterol LDL Cholesterol Direct HDL Cholesterol 25-OH Vitamin D Total PTH Intact Urine pH Urine WBC (Auto) Urine Creatinine Urine Total Protein Fluid Total Protein Vancomycin Trough Rheumatoid Factor Complement C4 Miscellaneous Test Crossmatch 09/23/16 09/23/16 09/23/16 11:37 12:29 18:01 WBC RBC Hgb Hct MCV MCH MCHC RDW Plt Count Lymph % (Auto) [place] % (Auto) Lymph # [place] # Baso # Seg Neutrophils % Seg Neuts % (Manual) Lymphocytes % (Manual) Monocytes % (Manual) Eosinophils % (Manual) Basophils % (Manual) Nucleated RBC % Seg Neutrophils # Seg Neutrophils # Man Lymphocytes # (Manual) Monocytes # (Manual) Eosinophils # (Manual) Basophils # (Manual) PT INR Fibrinogen dRVVT Confirm Interp Factor V Activity POC ABG pH POC ABG pCO2 18.9 L POC ABG pO2 143 H ABG pO2 ABG HCO3 ABG Base Excess ABG Hemoglobin Oxyhemoglobin Sodium Potassium Chloride Carbon Dioxide BUN Creatinine Glucose POC Glucose 153 H 108 H Lactic Acid Calcium Ionized Calcium Phosphorus Magnesium Direct Bilirubin AST ALT Alkaline Phosphatase Lactate Dehydrogenase Troponin T C-Reactive Protein Total Protein Albumin Prealbumin Triglycerides Cholesterol LDL Cholesterol Direct HDL Cholesterol 25-OH Vitamin D Total PTH Intact Urine pH Urine WBC (Auto) Urine Creatinine Urine Total Protein Fluid Total Protein Vancomycin Trough Rheumatoid Factor Complement C4 Miscellaneous Test Crossmatch 09/23/16 09/23/16 09/24/16 21:19 23:43 05:16 WBC RBC Hgb Hct MCV MCH MCHC RDW Plt Count Lymph % (Auto) [place] % (Auto) Lymph # [place] # Baso # Seg Neutrophils % Seg Neuts % (Manual) Lymphocytes % (Manual) Monocytes % (Manual) Eosinophils % (Manual) Basophils % (Manual) Nucleated RBC % Seg Neutrophils # Seg Neutrophils # Man Lymphocytes # (Manual) Monocytes # (Manual) Eosinophils # (Manual) Basophils # (Manual) PT INR Fibrinogen dRVVT Confirm Interp Factor V Activity POC ABG pH POC ABG pCO2 17.3 L POC ABG pO2 112 H ABG pO2 ABG HCO3 ABG Base Excess ABG Hemoglobin Oxyhemoglobin Sodium Potassium Chloride Carbon Dioxide BUN Creatinine Glucose POC Glucose 143 H 164 H Lactic Acid Calcium Ionized Calcium Phosphorus Magnesium Direct Bilirubin AST ALT Alkaline Phosphatase Lactate Dehydrogenase Troponin T C-Reactive Protein Total Protein Albumin Prealbumin Triglycerides Cholesterol LDL Cholesterol Direct HDL Cholesterol 25-OH Vitamin D Total PTH Intact Urine pH Urine WBC (Auto) Urine Creatinine Urine Total Protein Fluid Total Protein Vancomycin Trough Rheumatoid Factor Complement C4 Miscellaneous Test Crossmatch 09/24/16 09/24/16 09/24/16 05:21 11:58 17:06 WBC RBC Hgb Hct MCV MCH MCHC RDW Plt Count Lymph % (Auto) [place] % (Auto) Lymph # [place] # Baso # Seg Neutrophils % Seg Neuts % (Manual) Lymphocytes % (Manual) Monocytes % (Manual) Eosinophils % (Manual) Basophils % (Manual) Nucleated RBC % Seg Neutrophils # Seg Neutrophils # Man Lymphocytes # (Manual) Monocytes # (Manual) Eosinophils # (Manual) Basophils # (Manual) PT INR Fibrinogen dRVVT Confirm Interp Factor V Activity POC ABG pH POC ABG pCO2 POC ABG pO2 ABG pO2 ABG HCO3 ABG Base Excess ABG Hemoglobin Oxyhemoglobin Sodium Potassium Chloride Carbon Dioxide 10 L BUN 103 H Creatinine 4.3 H Glucose 163 H POC Glucose 173 H 167 H Lactic Acid Calcium 6.5 L Ionized Calcium Phosphorus Magnesium Direct Bilirubin AST ALT Alkaline Phosphatase Lactate Dehydrogenase Troponin T C-Reactive Protein Total Protein Albumin Prealbumin Triglycerides Cholesterol LDL Cholesterol Direct HDL Cholesterol 25-OH Vitamin D Total PTH Intact Urine pH Urine WBC (Auto) Urine Creatinine Urine Total Protein Fluid Total Protein Vancomycin Trough Rheumatoid Factor Complement C4 Miscellaneous Test Crossmatch 09/24/16 09/24/16 09/24/16 20:15 21:02 23:48 WBC RBC Hgb Hct MCV MCH MCHC RDW Plt Count Lymph % (Auto) [place] % (Auto) Lymph # [place] # Baso # Seg Neutrophils % Seg Neuts % (Manual) Lymphocytes % (Manual) Monocytes % (Manual) Eosinophils % (Manual) Basophils % (Manual) Nucleated RBC % Seg Neutrophils # Seg Neutrophils # Man Lymphocytes # (Manual) Monocytes # (Manual) Eosinophils # (Manual) Basophils # (Manual) PT INR Fibrinogen dRVVT Confirm Interp Factor V Activity POC ABG pH 7.288 L POC ABG pCO2 30.2 L 21.5 L POC ABG pO2 32 L 39 L ABG pO2 ABG HCO3 ABG Base Excess ABG Hemoglobin Oxyhemoglobin Sodium Potassium Chloride Carbon Dioxide BUN Creatinine Glucose POC Glucose 109 H Lactic Acid Calcium Ionized Calcium Phosphorus Magnesium Direct Bilirubin AST ALT Alkaline Phosphatase Lactate Dehydrogenase Troponin T C-Reactive Protein Total Protein Albumin Prealbumin Triglycerides Cholesterol LDL Cholesterol Direct HDL Cholesterol 25-OH Vitamin D Total PTH Intact Urine pH Urine WBC (Auto) Urine Creatinine Urine Total Protein Fluid Total Protein Vancomycin Trough Rheumatoid Factor Complement C4 Miscellaneous Test Crossmatch 09/25/16 09/25/16 09/25/16 04:20 04:20 04:20 WBC RBC 2.58 L Hgb 7.0 L Hct 21.0 L MCV MCH 27 L MCHC RDW 23.8 H Plt Count Lymph % (Auto) [place] % (Auto) Lymph # [place] # Baso # Seg Neutrophils % Seg Neuts % (Manual) Lymphocytes % (Manual) 12.0 L Monocytes % (Manual) Eosinophils % (Manual) 7.0 H Basophils % (Manual) 2.0 H Nucleated RBC % Seg Neutrophils # Seg Neutrophils # Man Lymphocytes # (Manual) 0.9 L Monocytes # (Manual) Eosinophils # (Manual) 0.5 H Basophils # (Manual) PT INR Fibrinogen dRVVT Confirm Interp Factor V Activity POC ABG pH POC ABG pCO2 POC ABG pO2 ABG pO2 ABG HCO3 ABG Base Excess ABG Hemoglobin Oxyhemoglobin Sodium Potassium Chloride Carbon Dioxide 15 L BUN 72 H Creatinine 3.8 H Glucose POC Glucose Lactic Acid Calcium 6.0 L Ionized Calcium Phosphorus 4.60 H Magnesium 1.60 L Direct Bilirubin AST ALT Alkaline Phosphatase Lactate Dehydrogenase Troponin T C-Reactive Protein Total Protein Albumin Prealbumin Triglycerides Cholesterol LDL Cholesterol Direct HDL Cholesterol 25-OH Vitamin D Total PTH Intact Urine pH Urine WBC (Auto) Urine Creatinine Urine Total Protein Fluid Total Protein Vancomycin Trough Rheumatoid Factor Complement C4 Miscellaneous Test Crossmatch 09/25/16 09/25/16 09/25/16 04:57 08:02 10:30 WBC RBC Hgb Hct MCV MCH MCHC RDW Plt Count Lymph % (Auto) [place] % (Auto) Lymph # [place] # Baso # Seg Neutrophils % Seg Neuts % (Manual) Lymphocytes % (Manual) Monocytes % (Manual) Eosinophils % (Manual) Basophils % (Manual) Nucleated RBC % Seg Neutrophils # Seg Neutrophils # Man Lymphocytes # (Manual) Monocytes # (Manual) Eosinophils # (Manual) Basophils # (Manual) PT INR Fibrinogen dRVVT Confirm Interp Factor V Activity POC ABG pH POC ABG pCO2 24.7 L POC ABG pO2 152 H ABG pO2 ABG HCO3 ABG Base Excess ABG Hemoglobin Oxyhemoglobin Sodium Potassium Chloride Carbon Dioxide BUN Creatinine Glucose POC Glucose 113 H Lactic Acid Calcium Ionized Calcium Phosphorus Magnesium Direct Bilirubin AST ALT Alkaline Phosphatase Lactate Dehydrogenase Troponin T C-Reactive Protein Total Protein Albumin Prealbumin Triglycerides Cholesterol LDL Cholesterol Direct HDL Cholesterol 25-OH Vitamin D Total PTH Intact Urine pH Urine WBC (Auto) Urine Creatinine Urine Total Protein Fluid Total Protein Vancomycin Trough Rheumatoid Factor Complement C4 Miscellaneous Test Crossmatch See Detail 09/25/16 09/25/16 09/25/16 12:05 17:44 23:47 WBC RBC Hgb Hct MCV MCH MCHC RDW Plt Count Lymph % (Auto) [place] % (Auto) Lymph # [place] # Baso # Seg Neutrophils % Seg Neuts % (Manual) Lymphocytes % (Manual) Monocytes % (Manual) Eosinophils % (Manual) Basophils % (Manual) Nucleated RBC % Seg Neutrophils # Seg Neutrophils # Man Lymphocytes # (Manual) Monocytes # (Manual) Eosinophils # (Manual) Basophils # (Manual) PT INR Fibrinogen dRVVT Confirm Interp Factor V Activity POC ABG pH POC ABG pCO2 POC ABG pO2 ABG pO2 ABG HCO3 ABG Base Excess ABG Hemoglobin Oxyhemoglobin Sodium Potassium Chloride Carbon Dioxide BUN Creatinine Glucose POC Glucose 117 H 119 H 150 H Lactic Acid Calcium Ionized Calcium Phosphorus Magnesium Direct Bilirubin AST ALT Alkaline Phosphatase Lactate Dehydrogenase Troponin T C-Reactive Protein Total Protein Albumin Prealbumin Triglycerides Cholesterol LDL Cholesterol Direct HDL Cholesterol 25-OH Vitamin D Total PTH Intact Urine pH Urine WBC (Auto) Urine Creatinine Urine Total Protein Fluid Total Protein Vancomycin Trough Rheumatoid Factor Complement C4 Miscellaneous Test Crossmatch 09/26/16 09/26/16 09/26/16 04:25 04:25 04:25 WBC RBC 2.65 L Hgb 7.4 L Hct 21.6 L MCV MCH MCHC RDW 22.5 H Plt Count Lymph % (Auto) [place] % (Auto) Lymph # [place] # Baso # Seg Neutrophils % Seg Neuts % (Manual) Lymphocytes % (Manual) 6.0 L Monocytes % (Manual) Eosinophils % (Manual) 11.0 H Basophils % (Manual) Nucleated RBC % Seg Neutrophils # Seg Neutrophils # Man Lymphocytes # (Manual) 0.4 L Monocytes # (Manual) Eosinophils # (Manual) 0.6 H Basophils # (Manual) PT INR Fibrinogen dRVVT Confirm Interp Factor V Activity POC ABG pH POC ABG pCO2 POC ABG pO2 ABG pO2 ABG HCO3 ABG Base Excess ABG Hemoglobin Oxyhemoglobin Sodium Potassium Chloride 97.0 L Carbon Dioxide 19 L BUN 43 H Creatinine 2.6 H Glucose 130 H POC Glucose Lactic Acid 4.40 H* Calcium 6.7 L Ionized Calcium Phosphorus Magnesium Direct Bilirubin AST ALT Alkaline Phosphatase Lactate Dehydrogenase Troponin T C-Reactive Protein Total Protein Albumin Prealbumin Triglycerides Cholesterol LDL Cholesterol Direct HDL Cholesterol 25-OH Vitamin D Total PTH Intact Urine pH Urine WBC (Auto) Urine Creatinine Urine Total Protein Fluid Total Protein Vancomycin Trough Rheumatoid Factor Complement C4 Miscellaneous Test Crossmatch 09/26/16 09/26/16 09/26/16 05:20 11:44 12:12 WBC RBC Hgb Hct MCV MCH MCHC RDW Plt Count Lymph % (Auto) [place] % (Auto) Lymph # [place] # Baso # Seg Neutrophils % Seg Neuts % (Manual) Lymphocytes % (Manual) Monocytes % (Manual) Eosinophils % (Manual) Basophils % (Manual) Nucleated RBC % Seg Neutrophils # Seg Neutrophils # Man Lymphocytes # (Manual) Monocytes # (Manual) Eosinophils # (Manual) Basophils # (Manual) PT INR Fibrinogen dRVVT Confirm Interp Factor V Activity POC ABG pH POC ABG pCO2 27.0 L POC ABG pO2 69 L ABG pO2 ABG HCO3 ABG Base Excess ABG Hemoglobin Oxyhemoglobin Sodium Potassium Chloride Carbon Dioxide BUN Creatinine Glucose POC Glucose 121 H 128 H Lactic Acid Calcium Ionized Calcium Phosphorus Magnesium Direct Bilirubin AST ALT Alkaline Phosphatase Lactate Dehydrogenase Troponin T C-Reactive Protein Total Protein Albumin Prealbumin Triglycerides Cholesterol LDL Cholesterol Direct HDL Cholesterol 25-OH Vitamin D Total PTH Intact Urine pH Urine WBC (Auto) Urine Creatinine Urine Total Protein Fluid Total Protein Vancomycin Trough Rheumatoid Factor Complement C4 Miscellaneous Test Crossmatch 09/26/16 09/26/16 09/27/16 18:31 23:40 08:20 WBC RBC Hgb Hct MCV MCH MCHC RDW Plt Count Lymph % (Auto) [place] % (Auto) Lymph # [place] # Baso # Seg Neutrophils % Seg Neuts % (Manual) Lymphocytes % (Manual) Monocytes % (Manual) Eosinophils % (Manual) Basophils % (Manual) Nucleated RBC % Seg Neutrophils # Seg Neutrophils # Man Lymphocytes # (Manual) Monocytes # (Manual) Eosinophils # (Manual) Basophils # (Manual) PT INR Fibrinogen dRVVT Confirm Interp Factor V Activity POC ABG pH POC ABG pCO2 POC ABG pO2 ABG pO2 ABG HCO3 ABG Base Excess ABG Hemoglobin Oxyhemoglobin Sodium Potassium Chloride Carbon Dioxide BUN Creatinine Glucose POC Glucose 120 H 133 H Lactic Acid 4.10 H* Calcium Ionized Calcium Phosphorus Magnesium Direct Bilirubin AST ALT Alkaline Phosphatase Lactate Dehydrogenase Troponin T C-Reactive Protein Total Protein Albumin Prealbumin Triglycerides Cholesterol LDL Cholesterol Direct HDL Cholesterol 25-OH Vitamin D Total PTH Intact Urine pH Urine WBC (Auto) Urine Creatinine Urine Total Protein Fluid Total Protein Vancomycin Trough Rheumatoid Factor Complement C4 Miscellaneous Test Crossmatch 09/27/16 09/27/16 09/27/16 11:23 15:00 18:15 WBC RBC Hgb Hct MCV MCH MCHC RDW Plt Count Lymph % (Auto) [place] % (Auto) Lymph # [place] # Baso # Seg Neutrophils % Seg Neuts % (Manual) Lymphocytes % (Manual) Monocytes % (Manual) Eosinophils % (Manual) Basophils % (Manual) Nucleated RBC % Seg Neutrophils # Seg Neutrophils # Man Lymphocytes # (Manual) Monocytes # (Manual) Eosinophils # (Manual) Basophils # (Manual) PT INR Fibrinogen dRVVT Confirm Interp Factor V Activity POC ABG pH 7.459 H POC ABG pCO2 27.1 L POC ABG pO2 140 H ABG pO2 ABG HCO3 ABG Base Excess ABG Hemoglobin Oxyhemoglobin Sodium Potassium Chloride Carbon Dioxide BUN Creatinine Glucose POC Glucose 114 H 127 H Lactic Acid Calcium Ionized Calcium Phosphorus Magnesium Direct Bilirubin AST ALT Alkaline Phosphatase Lactate Dehydrogenase Troponin T C-Reactive Protein Total Protein Albumin Prealbumin Triglycerides Cholesterol LDL Cholesterol Direct HDL Cholesterol 25-OH Vitamin D Total PTH Intact Urine pH Urine WBC (Auto) Urine Creatinine Urine Total Protein Fluid Total Protein Vancomycin Trough Rheumatoid Factor Complement C4 Miscellaneous Test Crossmatch 09/27/16 09/27/16 09/28/16 Unknown Unknown 03:45 WBC RBC 2.49 L Hgb 6.8 L Hct 20.7 L MCV MCH 27 L MCHC RDW 22.1 H Plt Count Lymph % (Auto) [place] % (Auto) Lymph # [place] # Baso # Seg Neutrophils % Seg Neuts % (Manual) 32.0 L Lymphocytes % (Manual) 12.0 L Monocytes % (Manual) 11.0 H Eosinophils % (Manual) 10.0 H Basophils % (Manual) Nucleated RBC % Seg Neutrophils # Seg Neutrophils # Man Lymphocytes # (Manual) 1.0 L Monocytes # (Manual) 0.9 H Eosinophils # (Manual) 0.8 H Basophils # (Manual) PT INR Fibrinogen dRVVT Confirm Interp Factor V Activity POC ABG pH POC ABG pCO2 POC ABG pO2 ABG pO2 ABG HCO3 ABG Base Excess ABG Hemoglobin Oxyhemoglobin Sodium 135 L 135 L Potassium 3.5 L Chloride 93.6 L 94.4 L Carbon Dioxide 17 L 21 L BUN 45 H 28 H Creatinine 3.3 H 2.5 H Glucose 106 H POC Glucose Lactic Acid Calcium 7.3 L 7.1 L Ionized Calcium Phosphorus Magnesium Direct Bilirubin AST ALT Alkaline Phosphatase Lactate Dehydrogenase Troponin T C-Reactive Protein Total Protein Albumin Prealbumin Triglycerides Cholesterol LDL Cholesterol Direct HDL Cholesterol 25-OH Vitamin D Total PTH Intact Urine pH Urine WBC (Auto) Urine Creatinine Urine Total Protein Fluid Total Protein Vancomycin Trough Rheumatoid Factor Complement C4 Miscellaneous Test Crossmatch 09/28/16 09/28/16 09/28/16 03:45 07:25 11:58 WBC 13.3 H RBC 3.01 L Hgb 8.4 L Hct 25.0 L MCV MCH MCHC RDW 20.5 H Plt Count 128 L Lymph % (Auto) [place] % (Auto) Lymph # [place] # Baso # Seg Neutrophils % Seg Neuts % (Manual) Lymphocytes % (Manual) 7.0 L Monocytes % (Manual) Eosinophils % (Manual) 6.0 H Basophils % (Manual) Nucleated RBC % Seg Neutrophils # Seg Neutrophils # Man Lymphocytes # (Manual) 0.9 L Monocytes # (Manual) Eosinophils # (Manual) 0.8 H Basophils # (Manual) PT INR Fibrinogen dRVVT Confirm Interp Factor V Activity POC ABG pH POC ABG pCO2 POC ABG pO2 ABG pO2 ABG HCO3 ABG Base Excess ABG Hemoglobin Oxyhemoglobin Sodium Potassium Chloride Carbon Dioxide BUN Creatinine Glucose POC Glucose 121 H Lactic Acid 4.50 H* Calcium Ionized Calcium Phosphorus Magnesium Direct Bilirubin AST ALT Alkaline Phosphatase Lactate Dehydrogenase Troponin T C-Reactive Protein Total Protein Albumin Prealbumin Triglycerides Cholesterol LDL Cholesterol Direct HDL Cholesterol 25-OH Vitamin D Total PTH Intact Urine pH Urine WBC (Auto) Urine Creatinine Urine Total Protein Fluid Total Protein Vancomycin Trough Rheumatoid Factor Complement C4 Miscellaneous Test Crossmatch 09/29/16 09/29/16 09/29/16 06:45 06:45 06:45 WBC 14.9 H RBC 2.74 L Hgb 7.6 L Hct 23.2 L MCV MCH MCHC RDW 20.5 H Plt Count 81 L Lymph % (Auto) [place] % (Auto) Lymph # [place] # Baso # Seg Neutrophils % Seg Neuts % (Manual) 81.0 H Lymphocytes % (Manual) 4.0 L Monocytes % (Manual) Eosinophils % (Manual) Basophils % (Manual) Nucleated RBC % Seg Neutrophils # Seg Neutrophils # Man 12.1 H Lymphocytes # (Manual) 0.6 L Monocytes # (Manual) Eosinophils # (Manual) Basophils # (Manual) PT INR Fibrinogen dRVVT Confirm Interp Factor V Activity POC ABG pH POC ABG pCO2 POC ABG pO2 ABG pO2 ABG HCO3 ABG Base Excess ABG Hemoglobin Oxyhemoglobin Sodium 133 L Potassium 3.4 L Chloride 92.5 L Carbon Dioxide 21 L BUN 33 H Creatinine 3.0 H Glucose POC Glucose Lactic Acid Calcium 6.6 L Ionized Calcium Phosphorus Magnesium 1.40 L Direct Bilirubin 0.9 H AST ALT Alkaline Phosphatase Lactate Dehydrogenase Troponin T C-Reactive Protein Total Protein 4.3 L Albumin 1.3 L Prealbumin Triglycerides Cholesterol LDL Cholesterol Direct HDL Cholesterol 25-OH Vitamin D Total PTH Intact Urine pH Urine WBC (Auto) Urine Creatinine Urine Total Protein Fluid Total Protein Vancomycin Trough Rheumatoid Factor Complement C4 Miscellaneous Test Crossmatch 09/29/16 09/29/16 09/30/16 17:52 20:12 00:07 WBC RBC Hgb Hct MCV MCH MCHC RDW Plt Count Lymph % (Auto) [place] % (Auto) Lymph # [place] # Baso # Seg Neutrophils % Seg Neuts % (Manual) Lymphocytes % (Manual) Monocytes % (Manual) Eosinophils % (Manual) Basophils % (Manual) Nucleated RBC % Seg Neutrophils # Seg Neutrophils # Man Lymphocytes # (Manual) Monocytes # (Manual) Eosinophils # (Manual) Basophils # (Manual) PT INR Fibrinogen dRVVT Confirm Interp Factor V Activity POC ABG pH POC ABG pCO2 POC ABG pO2 ABG pO2 ABG HCO3 ABG Base Excess ABG Hemoglobin Oxyhemoglobin Sodium Potassium Chloride Carbon Dioxide BUN Creatinine Glucose POC Glucose 50 L 51 L Lactic Acid Calcium Ionized Calcium Phosphorus Magnesium Direct Bilirubin AST ALT Alkaline Phosphatase Lactate Dehydrogenase Troponin T 0.204 H* C-Reactive Protein Total Protein Albumin Prealbumin Triglycerides Cholesterol 31 L LDL Cholesterol Direct 4 L HDL Cholesterol 3 L 25-OH Vitamin D Total PTH Intact Urine pH Urine WBC (Auto) Urine Creatinine Urine Total Protein Fluid Total Protein Vancomycin Trough Rheumatoid Factor Complement C4 Miscellaneous Test Crossmatch 09/30/16 09/30/16 09/30/16 01:30 05:15 06:10 WBC RBC Hgb Hct MCV MCH MCHC RDW Plt Count Lymph % (Auto) [place] % (Auto) Lymph # [place] # Baso # Seg Neutrophils % Seg Neuts % (Manual) Lymphocytes % (Manual) Monocytes % (Manual) Eosinophils % (Manual) Basophils % (Manual) Nucleated RBC % Seg Neutrophils # Seg Neutrophils # Man Lymphocytes # (Manual) Monocytes # (Manual) Eosinophils # (Manual) Basophils # (Manual) PT INR Fibrinogen dRVVT Confirm Interp Factor V Activity POC ABG pH POC ABG pCO2 POC ABG pO2 ABG pO2 ABG HCO3 ABG Base Excess ABG Hemoglobin Oxyhemoglobin Sodium 133 L Potassium 3.2 L Chloride 93.2 L Carbon Dioxide 19 L BUN 36 H Creatinine 3.2 H Glucose 104 H POC Glucose 167 H 146 H Lactic Acid Calcium 6.4 L Ionized Calcium Phosphorus Magnesium 1.60 L Direct Bilirubin AST ALT Alkaline Phosphatase Lactate Dehydrogenase Troponin T C-Reactive Protein Total Protein Albumin Prealbumin Triglycerides Cholesterol LDL Cholesterol Direct HDL Cholesterol 25-OH Vitamin D Total PTH Intact Urine pH Urine WBC (Auto) Urine Creatinine Urine Total Protein Fluid Total Protein Vancomycin Trough Rheumatoid Factor Complement C4 Miscellaneous Test Crossmatch 09/30/16 09/30/16 09/30/16 11:26 13:39 18:38 WBC RBC Hgb Hct MCV MCH MCHC RDW Plt Count Lymph % (Auto) [place] % (Auto) Lymph # [place] # Baso # Seg Neutrophils % Seg Neuts % (Manual) Lymphocytes % (Manual) Monocytes % (Manual) Eosinophils % (Manual) Basophils % (Manual) Nucleated RBC % Seg Neutrophils # Seg Neutrophils # Man Lymphocytes # (Manual) Monocytes # (Manual) Eosinophils # (Manual) Basophils # (Manual) PT INR Fibrinogen dRVVT Confirm Interp Factor V Activity POC ABG pH 7.479 H POC ABG pCO2 29.8 L POC ABG pO2 117 H ABG pO2 ABG HCO3 ABG Base Excess ABG Hemoglobin Oxyhemoglobin Sodium Potassium Chloride Carbon Dioxide BUN Creatinine Glucose POC Glucose 140 H 122 H Lactic Acid Calcium Ionized Calcium Phosphorus Magnesium Direct Bilirubin AST ALT Alkaline Phosphatase Lactate Dehydrogenase Troponin T C-Reactive Protein Total Protein Albumin Prealbumin Triglycerides Cholesterol LDL Cholesterol Direct HDL Cholesterol 25-OH Vitamin D Total PTH Intact Urine pH Urine WBC (Auto) Urine Creatinine Urine Total Protein Fluid Total Protein Vancomycin Trough Rheumatoid Factor Complement C4 Miscellaneous Test Crossmatch 10/01/16 10/01/16 10/01/16 06:00 06:00 12:37 WBC 12.6 H RBC 2.75 L Hgb 7.3 L Hct 23.3 L MCV MCH 27 L MCHC RDW 20.6 H Plt Count 72 L Lymph % (Auto) [place] % (Auto) Lymph # [place] # Baso # Seg Neutrophils % Seg Neuts % (Manual) 31.0 L Lymphocytes % (Manual) 8.0 L Monocytes % (Manual) Eosinophils % (Manual) Basophils % (Manual) Nucleated RBC % 3.0 H Seg Neutrophils # Seg Neutrophils # Man Lymphocytes # (Manual) 1.0 L Monocytes # (Manual) Eosinophils # (Manual) Basophils # (Manual) PT INR Fibrinogen dRVVT Confirm Interp Factor V Activity POC ABG pH POC ABG pCO2 POC ABG pO2 ABG pO2 ABG HCO3 ABG Base Excess ABG Hemoglobin Oxyhemoglobin Sodium 127 L Potassium Chloride 86.8 L Carbon Dioxide 20 L BUN 42 H Creatinine 3.5 H Glucose POC Glucose 65 L Lactic Acid Calcium 7.0 L Ionized Calcium Phosphorus Magnesium Direct Bilirubin AST ALT Alkaline Phosphatase Lactate Dehydrogenase Troponin T C-Reactive Protein Total Protein Albumin Prealbumin Triglycerides Cholesterol LDL Cholesterol Direct HDL Cholesterol 25-OH Vitamin D Total PTH Intact Urine pH Urine WBC (Auto) Urine Creatinine Urine Total Protein Fluid Total Protein Vancomycin Trough Rheumatoid Factor Complement C4 Miscellaneous Test Crossmatch 10/01/16 10/01/1610/02/17 17:39 23:32 00:59 WBC RBC Hgb Hct MCV MCH MCHC RDW Plt Count Lymph % (Auto) [place] % (Auto) Lymph # [place] # Baso # Seg Neutrophils % Seg Neuts % (Manual) Lymphocytes % (Manual) Monocytes % (Manual) Eosinophils % (Manual) Basophils % (Manual) Nucleated RBC % Seg Neutrophils # Seg Neutrophils # Man Lymphocytes # (Manual) Monocytes # (Manual) Eosinophils # (Manual) Basophils # (Manual) PT INR Fibrinogen dRVVT Confirm Interp Factor V Activity POC ABG pH POC ABG pCO2 POC ABG pO2 ABG pO2 ABG HCO3 ABG Base Excess ABG Hemoglobin Oxyhemoglobin Sodium Potassium Chloride Carbon Dioxide BUN Creatinine Glucose POC Glucose 107 H 52 L 145 H Lactic Acid Calcium Ionized Calcium Phosphorus Magnesium Direct Bilirubin AST ALT Alkaline Phosphatase Lactate Dehydrogenase Troponin T C-Reactive Protein Total Protein Albumin Prealbumin Triglycerides Cholesterol LDL Cholesterol Direct HDL Cholesterol 25-OH Vitamin D Total PTH Intact Urine pH Urine WBC (Auto) Urine Creatinine Urine Total Protein Fluid Total Protein Vancomycin Trough Rheumatoid Factor Complement C4 Miscellaneous Test Crossmatch 10/02/16 10/02/16 10/02/16 10:30 10:50 10:50 WBC 14.7 H RBC 2.76 L Hgb 7.4 L Hct 23.6 L MCV MCH 27 L MCHC RDW 20.2 H Plt Count 79 L Lymph % (Auto) [place] % (Auto) Lymph # [place] # Baso # Seg Neutrophils % Seg Neuts % (Manual) 86.0 H Lymphocytes % (Manual) 6.0 L Monocytes % (Manual) Eosinophils % (Manual) Basophils % (Manual) Nucleated RBC % Seg Neutrophils # Seg Neutrophils # Man 12.6 H Lymphocytes # (Manual) 0.9 L Monocytes # (Manual) Eosinophils # (Manual) Basophils # (Manual) PT INR Fibrinogen dRVVT Confirm Interp Factor V Activity POC ABG pH 7.486 H POC ABG pCO2 30.1 L POC ABG pO2 108 H ABG pO2 ABG HCO3 ABG Base Excess ABG Hemoglobin Oxyhemoglobin Sodium 131 L Potassium 3.4 L Chloride 89.9 L Carbon Dioxide BUN 26 H Creatinine 2.6 H Glucose POC Glucose Lactic Acid Calcium 7.0 L Ionized Calcium Phosphorus Magnesium Direct Bilirubin AST ALT Alkaline Phosphatase Lactate Dehydrogenase Troponin T C-Reactive Protein Total Protein Albumin Prealbumin Triglycerides Cholesterol LDL Cholesterol Direct HDL Cholesterol 25-OH Vitamin D Total PTH Intact Urine pH Urine WBC (Auto) Urine Creatinine Urine Total Protein Fluid Total Protein Vancomycin Trough Rheumatoid Factor Complement C4 Miscellaneous Test Crossmatch 10/02/16 10/03/16 10/03/16 23:45 00:45 05:10 WBC 12.9 H RBC 2.77 L Hgb 7.6 L Hct 23.7 L MCV MCH 27 L MCHC RDW 19.7 H Plt Count 89 L Lymph % (Auto) [place] % (Auto) Lymph # [place] # Baso # Seg Neutrophils % Seg Neuts % (Manual) Lymphocytes % (Manual) 8.0 L Monocytes % (Manual) Eosinophils % (Manual) Basophils % (Manual) Nucleated RBC % Seg Neutrophils # 11.9 H Seg Neutrophils # Man Lymphocytes # (Manual) 1.0 L Monocytes # (Manual) Eosinophils # (Manual) Basophils # (Manual) PT INR Fibrinogen dRVVT Confirm Interp Factor V Activity POC ABG pH POC ABG pCO2 POC ABG pO2 ABG pO2 ABG HCO3 ABG Base Excess ABG Hemoglobin Oxyhemoglobin Sodium Potassium Chloride Carbon Dioxide BUN Creatinine Glucose POC Glucose 55 L 199 H Lactic Acid Calcium Ionized Calcium Phosphorus Magnesium Direct Bilirubin AST ALT Alkaline Phosphatase Lactate Dehydrogenase Troponin T C-Reactive Protein Total Protein Albumin Prealbumin Triglycerides Cholesterol LDL Cholesterol Direct HDL Cholesterol 25-OH Vitamin D Total PTH Intact Urine pH Urine WBC (Auto) Urine Creatinine Urine Total Protein Fluid Total Protein Vancomycin Trough Rheumatoid Factor Complement C4 Miscellaneous Test Crossmatch 10/03/16 10/03/16 10/03/16 05:10 12:14 13:18 WBC RBC Hgb Hct MCV MCH MCHC RDW Plt Count Lymph % (Auto) [place] % (Auto) Lymph # [place] # Baso # Seg Neutrophils % Seg Neuts % (Manual) Lymphocytes % (Manual) Monocytes % (Manual) Eosinophils % (Manual) Basophils % (Manual) Nucleated RBC % Seg Neutrophils # Seg Neutrophils # Man Lymphocytes # (Manual) Monocytes # (Manual) Eosinophils # (Manual) Basophils # (Manual) PT INR Fibrinogen dRVVT Confirm Interp Factor V Activity POC ABG pH POC ABG pCO2 POC ABG pO2 ABG pO2 ABG HCO3 ABG Base Excess ABG Hemoglobin Oxyhemoglobin Sodium 129 L Potassium 3.3 L Chloride 88.8 L Carbon Dioxide 20 L BUN 29 H Creatinine 2.8 H Glucose POC Glucose 68 L 127 H Lactic Acid Calcium 7.2 L Ionized Calcium Phosphorus Magnesium Direct Bilirubin AST ALT Alkaline Phosphatase Lactate Dehydrogenase Troponin T C-Reactive Protein Total Protein Albumin Prealbumin Triglycerides Cholesterol LDL Cholesterol Direct HDL Cholesterol 25-OH Vitamin D Total PTH Intact Urine pH Urine WBC (Auto) Urine Creatinine Urine Total Protein Fluid Total Protein Vancomycin Trough Rheumatoid Factor Complement C4 Miscellaneous Test Crossmatch 10/03/16 10/03/16 10/03/16 14:42 18:21 19:09 WBC RBC Hgb Hct MCV MCH MCHC RDW Plt Count Lymph % (Auto) [place] % (Auto) Lymph # [place] # Baso # Seg Neutrophils % Seg Neuts % (Manual) Lymphocytes % (Manual) Monocytes % (Manual) Eosinophils % (Manual) Basophils % (Manual) Nucleated RBC % Seg Neutrophils # Seg Neutrophils # Man Lymphocytes # (Manual) Monocytes # (Manual) Eosinophils # (Manual) Basophils # (Manual) PT INR Fibrinogen dRVVT Confirm Interp Factor V Activity POC ABG pH 7.499 H POC ABG pCO2 28.4 L POC ABG pO2 44 L ABG pO2 ABG HCO3 ABG Base Excess ABG Hemoglobin Oxyhemoglobin Sodium Potassium Chloride Carbon Dioxide BUN Creatinine Glucose POC Glucose 64 L 205 H Lactic Acid Calcium Ionized Calcium Phosphorus Magnesium Direct Bilirubin AST ALT Alkaline Phosphatase Lactate Dehydrogenase Troponin T C-Reactive Protein Total Protein Albumin Prealbumin Triglycerides Cholesterol LDL Cholesterol Direct HDL Cholesterol 25-OH Vitamin D Total PTH Intact Urine pH Urine WBC (Auto) Urine Creatinine Urine Total Protein Fluid Total Protein Vancomycin Trough Rheumatoid Factor Complement C4 Miscellaneous Test Crossmatch 10/03/16 10/04/16 10/04/16 23:33 04:18 06:30 WBC RBC 2.54 L Hgb 7.1 L Hct 21.7 L MCV MCH MCHC RDW 19.5 H Plt Count 76 L Lymph % (Auto) [place] % (Auto) Lymph # [place] # Baso # Seg Neutrophils % Seg Neuts % (Manual) 88.0 H Lymphocytes % (Manual) 6.0 L Monocytes % (Manual) Eosinophils % (Manual) Basophils % (Manual) Nucleated RBC % Seg Neutrophils # Seg Neutrophils # Man 8.8 H Lymphocytes # (Manual) 0.6 L Monocytes # (Manual) Eosinophils # (Manual) Basophils # (Manual) PT INR Fibrinogen dRVVT Confirm Interp Factor V Activity POC ABG pH 7.461 H POC ABG pCO2 33.6 L POC ABG pO2 211 H ABG pO2 ABG HCO3 ABG Base Excess ABG Hemoglobin Oxyhemoglobin Sodium Potassium Chloride Carbon Dioxide BUN Creatinine Glucose POC Glucose 136 H Lactic Acid Calcium Ionized Calcium Phosphorus Magnesium Direct Bilirubin AST ALT Alkaline Phosphatase Lactate Dehydrogenase Troponin T C-Reactive Protein Total Protein Albumin Prealbumin Triglycerides Cholesterol LDL Cholesterol Direct HDL Cholesterol 25-OH Vitamin D Total PTH Intact Urine pH Urine WBC (Auto) Urine Creatinine Urine Total Protein Fluid Total Protein Vancomycin Trough Rheumatoid Factor Complement C4 Miscellaneous Test Crossmatch 10/04/16 10/04/16 10/04/16 06:30 11:45 17:54 WBC RBC Hgb Hct MCV MCH MCHC RDW Plt Count Lymph % (Auto) [place] % (Auto) Lymph # [place] # Baso # Seg Neutrophils % Seg Neuts % (Manual) Lymphocytes % (Manual) Monocytes % (Manual) Eosinophils % (Manual) Basophils % (Manual) Nucleated RBC % Seg Neutrophils # Seg Neutrophils # Man Lymphocytes # (Manual) Monocytes # (Manual) Eosinophils # (Manual) Basophils # (Manual) PT INR Fibrinogen dRVVT Confirm Interp Factor V Activity POC ABG pH POC ABG pCO2 POC ABG pO2 ABG pO2 ABG HCO3 ABG Base Excess ABG Hemoglobin Oxyhemoglobin Sodium 128 L Potassium Chloride 87.4 L Carbon Dioxide 20 L BUN 34 H Creatinine 2.9 H Glucose 127 H POC Glucose 158 H 160 H Lactic Acid Calcium 7.4 L Ionized Calcium Phosphorus Magnesium Direct Bilirubin AST ALT Alkaline Phosphatase Lactate Dehydrogenase Troponin T C-Reactive Protein Total Protein Albumin Prealbumin Triglycerides Cholesterol LDL Cholesterol Direct HDL Cholesterol 25-OH Vitamin D Total PTH Intact Urine pH Urine WBC (Auto) Urine Creatinine Urine Total Protein Fluid Total Protein Vancomycin Trough Rheumatoid Factor Complement C4 Miscellaneous Test Crossmatch 10/04/16 10/05/16 10/05/16 23:25 04:30 05:00 WBC RBC 2.64 L Hgb 7.5 L Hct 22.6 L MCV MCH MCHC RDW 19.3 H Plt Count 80 L Lymph % (Auto) [place] % (Auto) Lymph # [place] # Baso # Seg Neutrophils % Seg Neuts % (Manual) Lymphocytes % (Manual) 12.0 L Monocytes % (Manual) Eosinophils % (Manual) Basophils % (Manual) Nucleated RBC % Seg Neutrophils # Seg Neutrophils # Man Lymphocytes # (Manual) Monocytes # (Manual) Eosinophils # (Manual) Basophils # (Manual) PT INR Fibrinogen dRVVT Confirm Interp Factor V Activity POC ABG pH 7.475 H POC ABG pCO2 33.3 L POC ABG pO2 140 H ABG pO2 ABG HCO3 ABG Base Excess ABG Hemoglobin Oxyhemoglobin Sodium Potassium Chloride Carbon Dioxide BUN Creatinine Glucose POC Glucose 141 H Lactic Acid Calcium Ionized Calcium Phosphorus Magnesium Direct Bilirubin AST ALT Alkaline Phosphatase Lactate Dehydrogenase Troponin T C-Reactive Protein Total Protein Albumin Prealbumin Triglycerides Cholesterol LDL Cholesterol Direct HDL Cholesterol 25-OH Vitamin D Total PTH Intact Urine pH Urine WBC (Auto) Urine Creatinine Urine Total Protein Fluid Total Protein Vancomycin Trough Rheumatoid Factor Complement C4 Miscellaneous Test Crossmatch 10/05/16 10/05/16 10/05/16 05:00 05:09 12:58 WBC RBC Hgb Hct MCV MCH MCHC RDW Plt Count Lymph % (Auto) [place] % (Auto) Lymph # [place] # Baso # Seg Neutrophils % Seg Neuts % (Manual) Lymphocytes % (Manual) Monocytes % (Manual) Eosinophils % (Manual) Basophils % (Manual) Nucleated RBC % Seg Neutrophils # Seg Neutrophils # Man Lymphocytes # (Manual) Monocytes # (Manual) Eosinophils # (Manual) Basophils # (Manual) PT INR Fibrinogen dRVVT Confirm Interp Factor V Activity POC ABG pH POC ABG pCO2 POC ABG pO2 ABG pO2 ABG HCO3 ABG Base Excess ABG Hemoglobin Oxyhemoglobin Sodium 131 L Potassium Chloride 94.0 L Carbon Dioxide 20 L BUN 22 H Creatinine 2.0 H Glucose 123 H POC Glucose 166 H 179 H Lactic Acid Calcium 7.7 L Ionized Calcium Phosphorus 2.20 L D Magnesium Direct Bilirubin AST ALT Alkaline Phosphatase Lactate Dehydrogenase Troponin T C-Reactive Protein Total Protein Albumin Prealbumin Triglycerides Cholesterol LDL Cholesterol Direct HDL Cholesterol 25-OH Vitamin D Total PTH Intact Urine pH Urine WBC (Auto) Urine Creatinine Urine Total Protein Fluid Total Protein Vancomycin Trough Rheumatoid Factor Complement C4 Miscellaneous Test Crossmatch 10/05/16 10/05/16 10/05/16 15:50 18:53 23:12 WBC RBC Hgb Hct MCV MCH MCHC RDW Plt Count Lymph % (Auto) [place] % (Auto) Lymph # [place] # Baso # Seg Neutrophils % Seg Neuts % (Manual) Lymphocytes % (Manual) Monocytes % (Manual) Eosinophils % (Manual) Basophils % (Manual) Nucleated RBC % Seg Neutrophils # Seg Neutrophils # Man Lymphocytes # (Manual) Monocytes # (Manual) Eosinophils # (Manual) Basophils # (Manual) PT INR Fibrinogen dRVVT Confirm Interp Factor V Activity POC ABG pH POC ABG pCO2 POC ABG pO2 ABG pO2 ABG HCO3 ABG Base Excess ABG Hemoglobin Oxyhemoglobin Sodium Potassium Chloride Carbon Dioxide BUN Creatinine Glucose POC Glucose 150 H 164 H Lactic Acid Calcium Ionized Calcium Phosphorus Magnesium Direct Bilirubin AST ALT Alkaline Phosphatase Lactate Dehydrogenase Troponin T C-Reactive Protein Total Protein Albumin Prealbumin Triglycerides Cholesterol LDL Cholesterol Direct HDL Cholesterol 25-OH Vitamin D Total PTH Intact Urine pH Urine WBC (Auto) Urine Creatinine Urine Total Protein Fluid Total Protein Vancomycin Trough Rheumatoid Factor Complement C4 Miscellaneous Test Crossmatch See Detail 10/06/16 10/06/16 10/06/16 03:50 03:50 04:53 WBC RBC 3.00 L Hgb 8.6 L Hct 25.8 L MCV MCH MCHC RDW 17.9 H Plt Count 65 L Lymph % (Auto) [place] % (Auto) Lymph # [place] # Baso # Seg Neutrophils % Seg Neuts % (Manual) 30.0 L Lymphocytes % (Manual) 5.0 L Monocytes % (Manual) Eosinophils % (Manual) Basophils % (Manual) Nucleated RBC % Seg Neutrophils # Seg Neutrophils # Man Lymphocytes # (Manual) 0.4 L Monocytes # (Manual) Eosinophils # (Manual) Basophils # (Manual) PT INR Fibrinogen dRVVT Confirm Interp Factor V Activity POC ABG pH 7.310 L POC ABG pCO2 49.0 H POC ABG pO2 ABG pO2 ABG HCO3 ABG Base Excess ABG Hemoglobin Oxyhemoglobin Sodium 133 L Potassium Chloride 95.9 L Carbon Dioxide BUN 26 H Creatinine 2.0 H Glucose 116 H POC Glucose Lactic Acid Calcium 7.8 L Ionized Calcium Phosphorus Magnesium Direct Bilirubin AST ALT Alkaline Phosphatase Lactate Dehydrogenase Troponin T C-Reactive Protein Total Protein Albumin Prealbumin Triglycerides Cholesterol LDL Cholesterol Direct HDL Cholesterol 25-OH Vitamin D Total PTH Intact Urine pH Urine WBC (Auto) Urine Creatinine Urine Total Protein Fluid Total Protein Vancomycin Trough Rheumatoid Factor Complement C4 Miscellaneous Test Crossmatch 10/06/16 10/06/16 10/06/16 05:23 11:52 18:34 WBC RBC Hgb Hct MCV MCH MCHC RDW Plt Count Lymph % (Auto) [place] % (Auto) Lymph # [place] # Baso # Seg Neutrophils % Seg Neuts % (Manual) Lymphocytes % (Manual) Monocytes % (Manual) Eosinophils % (Manual) Basophils % (Manual) Nucleated RBC % Seg Neutrophils # Seg Neutrophils # Man Lymphocytes # (Manual) Monocytes # (Manual) Eosinophils # (Manual) Basophils # (Manual) PT INR Fibrinogen dRVVT Confirm Interp Factor V Activity POC ABG pH POC ABG pCO2 POC ABG pO2 ABG pO2 ABG HCO3 ABG Base Excess ABG Hemoglobin Oxyhemoglobin Sodium Potassium Chloride Carbon Dioxide BUN Creatinine Glucose POC Glucose 126 H 116 H 129 H Lactic Acid Calcium Ionized Calcium Phosphorus Magnesium Direct Bilirubin AST ALT Alkaline Phosphatase Lactate Dehydrogenase Troponin T C-Reactive Protein Total Protein Albumin Prealbumin Triglycerides Cholesterol LDL Cholesterol Direct HDL Cholesterol 25-OH Vitamin D Total PTH Intact Urine pH Urine WBC (Auto) Urine Creatinine Urine Total Protein Fluid Total Protein Vancomycin Trough Rheumatoid Factor Complement C4 Miscellaneous Test Crossmatch 10/07/16 10/07/16 10/07/16 03:45 05:00 10:00 WBC 17.0 H RBC 2.68 L Hgb 7.3 L Hct 25.3 L MCV MCH 27 L MCHC 29 L RDW 19.6 H Plt Count 74 L Lymph % (Auto) [place] % (Auto) Lymph # [place] # Baso # Seg Neutrophils % Seg Neuts % (Manual) Lymphocytes % (Manual) 12.0 L Monocytes % (Manual) Eosinophils % (Manual) Basophils % (Manual) Nucleated RBC % 4.0 H Seg Neutrophils # Seg Neutrophils # Man 10.7 H Lymphocytes # (Manual) Monocytes # (Manual) Eosinophils # (Manual) Basophils # (Manual) PT INR Fibrinogen dRVVT Confirm Interp Factor V Activity POC ABG pH POC ABG pCO2 POC ABG pO2 ABG pO2 ABG HCO3 ABG Base Excess ABG Hemoglobin Oxyhemoglobin Sodium 130 L Potassium 3.2 L Chloride 93.9 L Carbon Dioxide 20 L BUN 44 H Creatinine 2.7 H Glucose 129 H POC Glucose Lactic Acid Calcium 7.4 L Ionized Calcium Phosphorus Magnesium Direct Bilirubin AST ALT 6 L Alkaline Phosphatase 195 H Lactate Dehydrogenase Troponin T C-Reactive Protein Total Protein 4.9 L Albumin 1.0 L Prealbumin Triglycerides Cholesterol LDL Cholesterol Direct HDL Cholesterol 25-OH Vitamin D Total PTH Intact Urine pH Urine WBC (Auto) Urine Creatinine Urine Total Protein Fluid Total Protein Vancomycin Trough Rheumatoid Factor Complement C4 Miscellaneous Test Flexitest 1 H Crossmatch 10/07/16 10/07/16 10/07/16 10:00 11:24 18:10 WBC RBC Hgb Hct MCV MCH MCHC RDW Plt Count Lymph % (Auto) [place] % (Auto) Lymph # [place] # Baso # Seg Neutrophils % Seg Neuts % (Manual) Lymphocytes % (Manual) Monocytes % (Manual) Eosinophils % (Manual) Basophils % (Manual) Nucleated RBC % Seg Neutrophils # Seg Neutrophils # Man Lymphocytes # (Manual) Monocytes # (Manual) Eosinophils # (Manual) Basophils # (Manual) PT INR Fibrinogen dRVVT Confirm Interp Factor V Activity POC ABG pH POC ABG pCO2 POC ABG pO2 ABG pO2 ABG HCO3 ABG Base Excess ABG Hemoglobin Oxyhemoglobin Sodium Potassium Chloride Carbon Dioxide BUN Creatinine Glucose POC Glucose 116 H 130 H Lactic Acid Calcium Ionized Calcium Phosphorus Magnesium Direct Bilirubin AST ALT Alkaline Phosphatase Lactate Dehydrogenase Troponin T C-Reactive Protein 19.40 H Total Protein Albumin Prealbumin Triglycerides Cholesterol LDL Cholesterol Direct HDL Cholesterol 25-OH Vitamin D Total PTH Intact Urine pH Urine WBC (Auto) Urine Creatinine Urine Total Protein Fluid Total Protein Vancomycin Trough Rheumatoid Factor Complement C4 Miscellaneous Test Crossmatch 10/07/16 10/08/16 10/08/16 18:30 00:00 04:00 WBC RBC Hgb Hct MCV MCH MCHC RDW Plt Count Lymph % (Auto) [place] % (Auto) Lymph # [place] # Baso # Seg Neutrophils % Seg Neuts % (Manual) Lymphocytes % (Manual) Monocytes % (Manual) Eosinophils % (Manual) Basophils % (Manual) Nucleated RBC % Seg Neutrophils # Seg Neutrophils # Man Lymphocytes # (Manual) Monocytes # (Manual) Eosinophils # (Manual) Basophils # (Manual) PT INR Fibrinogen dRVVT Confirm Interp Factor V Activity POC ABG pH POC ABG pCO2 POC ABG pO2 ABG pO2 ABG HCO3 ABG Base Excess ABG Hemoglobin Oxyhemoglobin Sodium 132 L Potassium 3.3 L Chloride 93.6 L Carbon Dioxide 17 L BUN 59 H Creatinine 2.7 H Glucose 121 H POC Glucose 122 H Lactic Acid Calcium 7.6 L Ionized Calcium Phosphorus Magnesium Direct Bilirubin AST ALT Alkaline Phosphatase Lactate Dehydrogenase Troponin T C-Reactive Protein Total Protein Albumin Prealbumin Triglycerides Cholesterol LDL Cholesterol Direct HDL Cholesterol 25-OH Vitamin D Total PTH Intact Urine pH Urine WBC (Auto) > 182.0 H Urine Creatinine Urine Total Protein Fluid Total Protein Vancomycin Trough Rheumatoid Factor Complement C4 Miscellaneous Test Crossmatch 10/08/16 10/08/16 10/08/16 04:30 05:30 11:51 WBC RBC 5.15 H Hgb 14.4 H D Hct 44.5 H D MCV MCH MCHC RDW 19.5 H Plt Count 56 L Lymph % (Auto) [place] % (Auto) Lymph # [place] # Baso # Seg Neutrophils % Seg Neuts % (Manual) 24.0 L Lymphocytes % (Manual) 8.0 L Monocytes % (Manual) Eosinophils % (Manual) Basophils % (Manual) Nucleated RBC % 9.0 H Seg Neutrophils # Seg Neutrophils # Man Lymphocytes # (Manual) 0.7 L Monocytes # (Manual) Eosinophils # (Manual) Basophils # (Manual) PT INR Fibrinogen dRVVT Confirm Interp Factor V Activity POC ABG pH POC ABG pCO2 POC ABG pO2 ABG pO2 ABG HCO3 ABG Base Excess ABG Hemoglobin Oxyhemoglobin Sodium Potassium Chloride Carbon Dioxide BUN Creatinine Glucose POC Glucose 125 H 150 H Lactic Acid Calcium Ionized Calcium Phosphorus Magnesium Direct Bilirubin AST ALT Alkaline Phosphatase Lactate Dehydrogenase Troponin T C-Reactive Protein Total Protein Albumin Prealbumin Triglycerides Cholesterol LDL Cholesterol Direct HDL Cholesterol 25-OH Vitamin D Total PTH Intact Urine pH Urine WBC (Auto) Urine Creatinine Urine Total Protein Fluid Total Protein Vancomycin Trough Rheumatoid Factor Complement C4 Miscellaneous Test Crossmatch 10/08/16 10/08/16 10/08/16 12:49 17:07 19:30 WBC RBC Hgb 7.1 L D Hct 22.4 L D MCV MCH MCHC RDW Plt Count Lymph % (Auto) [place] % (Auto) Lymph # [place] # Baso # Seg Neutrophils % Seg Neuts % (Manual) Lymphocytes % (Manual) Monocytes % (Manual) Eosinophils % (Manual) Basophils % (Manual) Nucleated RBC % Seg Neutrophils # Seg Neutrophils # Man Lymphocytes # (Manual) Monocytes # (Manual) Eosinophils # (Manual) Basophils # (Manual) PT INR Fibrinogen dRVVT Confirm Interp Factor V Activity POC ABG pH POC ABG pCO2 28.2 L POC ABG pO2 111 H ABG pO2 ABG HCO3 ABG Base Excess ABG Hemoglobin Oxyhemoglobin Sodium Potassium Chloride Carbon Dioxide BUN Creatinine Glucose POC Glucose 145 H Lactic Acid Calcium Ionized Calcium Phosphorus Magnesium Direct Bilirubin AST ALT Alkaline Phosphatase Lactate Dehydrogenase Troponin T C-Reactive Protein Total Protein Albumin Prealbumin Triglycerides Cholesterol LDL Cholesterol Direct HDL Cholesterol 25-OH Vitamin D Total PTH Intact Urine pH Urine WBC (Auto) Urine Creatinine Urine Total Protein Fluid Total Protein Vancomycin Trough Rheumatoid Factor Complement C4 Miscellaneous Test Crossmatch 10/08/16 10/09/16 10/09/16 19:30 03:45 03:45 WBC 12.6 H RBC 2.36 L Hgb 6.7 L Hct 21.1 L MCV MCH MCHC RDW 19.5 H Plt Count 75 L Lymph % (Auto) [place] % (Auto) Lymph # [place] # Baso # Seg Neutrophils % Seg Neuts % (Manual) Lymphocytes % (Manual) Monocytes % (Manual) 10.0 H Eosinophils % (Manual) Basophils % (Manual) Nucleated RBC % 3.0 H Seg Neutrophils # Seg Neutrophils # Man Lymphocytes # (Manual) Monocytes # (Manual) 1.3 H Eosinophils # (Manual) Basophils # (Manual) PT 18.0 H INR 1.41 H Fibrinogen dRVVT Confirm Interp Factor V Activity POC ABG pH POC ABG pCO2 POC ABG pO2 ABG pO2 ABG HCO3 ABG Base Excess ABG Hemoglobin Oxyhemoglobin Sodium 135 L Potassium Chloride Carbon Dioxide 17 L BUN 81 H Creatinine 3.2 H Glucose 109 H POC Glucose Lactic Acid Calcium 7.4 L Ionized Calcium Phosphorus 4.60 H D Magnesium Direct Bilirubin AST ALT Alkaline Phosphatase Lactate Dehydrogenase Troponin T C-Reactive Protein Total Protein Albumin Prealbumin Triglycerides Cholesterol LDL Cholesterol Direct HDL Cholesterol 25-OH Vitamin D Total PTH Intact Urine pH Urine WBC (Auto) Urine Creatinine Urine Total Protein Fluid Total Protein Vancomycin Trough Rheumatoid Factor Complement C4 Miscellaneous Test Crossmatch 10/09/16 10/09/16 10/09/16 03:45 05:14 07:20 WBC RBC Hgb Hct MCV MCH MCHC RDW Plt Count Lymph % (Auto) [place] % (Auto) Lymph # [place] # Baso # Seg Neutrophils % Seg Neuts % (Manual) Lymphocytes % (Manual) Monocytes % (Manual) Eosinophils % (Manual) Basophils % (Manual) Nucleated RBC % Seg Neutrophils # Seg Neutrophils # Man Lymphocytes # (Manual) Monocytes # (Manual) Eosinophils # (Manual) Basophils # (Manual) PT 19.0 H INR 1.51 H Fibrinogen dRVVT Confirm Interp Factor V Activity POC ABG pH POC ABG pCO2 POC ABG pO2 ABG pO2 ABG HCO3 ABG Base Excess ABG Hemoglobin Oxyhemoglobin Sodium Potassium Chloride Carbon Dioxide BUN Creatinine Glucose POC Glucose 151 H Lactic Acid Calcium Ionized Calcium Phosphorus Magnesium Direct Bilirubin AST ALT Alkaline Phosphatase Lactate Dehydrogenase Troponin T C-Reactive Protein Total Protein Albumin Prealbumin Triglycerides Cholesterol LDL Cholesterol Direct HDL Cholesterol 25-OH Vitamin D Total PTH Intact Urine pH Urine WBC (Auto) Urine Creatinine Urine Total Protein Fluid Total Protein Vancomycin Trough Rheumatoid Factor Complement C4 Miscellaneous Test Crossmatch See Detail 10/09/16 10/09/16 10/09/16 11:46 16:20 16:43 WBC RBC Hgb 7.2 L Hct 22.2 L MCV MCH MCHC RDW Plt Count Lymph % (Auto) [place] % (Auto) Lymph # [place] # Baso # Seg Neutrophils % Seg Neuts % (Manual) Lymphocytes % (Manual) Monocytes % (Manual) Eosinophils % (Manual) Basophils % (Manual) Nucleated RBC % Seg Neutrophils # Seg Neutrophils # Man Lymphocytes # (Manual) Monocytes # (Manual) Eosinophils # (Manual) Basophils # (Manual) PT INR Fibrinogen dRVVT Confirm Interp Factor V Activity POC ABG pH POC ABG pCO2 POC ABG pO2 ABG pO2 ABG HCO3 ABG Base Excess ABG Hemoglobin Oxyhemoglobin Sodium Potassium Chloride Carbon Dioxide BUN Creatinine Glucose POC Glucose 133 H 141 H Lactic Acid Calcium Ionized Calcium Phosphorus Magnesium Direct Bilirubin AST ALT Alkaline Phosphatase Lactate Dehydrogenase Troponin T C-Reactive Protein Total Protein Albumin Prealbumin Triglycerides Cholesterol LDL Cholesterol Direct HDL Cholesterol 25-OH Vitamin D Total PTH Intact Urine pH Urine WBC (Auto) Urine Creatinine Urine Total Protein Fluid Total Protein Vancomycin Trough Rheumatoid Factor Complement C4 Miscellaneous Test Crossmatch 10/10/16 10/10/16 10/10/16 05:00 05:00 11:19 WBC 18.5 H RBC 2.19 L Hgb 6.4 L Hct 19.6 L* MCV MCH MCHC RDW 19.3 H Plt Count 93 L Lymph % (Auto) [place] % (Auto) Lymph # [place] # Baso # Seg Neutrophils % Seg Neuts % (Manual) Lymphocytes % (Manual) 10.0 L Monocytes % (Manual) Eosinophils % (Manual) Basophils % (Manual) Nucleated RBC % 4.0 H Seg Neutrophils # Seg Neutrophils # Man 11.3 H Lymphocytes # (Manual) Monocytes # (Manual) Eosinophils # (Manual) Basophils # (Manual) PT INR Fibrinogen dRVVT Confirm Interp Factor V Activity POC ABG pH POC ABG pCO2 POC ABG pO2 ABG pO2 ABG HCO3 ABG Base Excess ABG Hemoglobin Oxyhemoglobin Sodium Potassium 5.7 H D Chloride Carbon Dioxide 16 L BUN 94 H Creatinine 3.1 H Glucose 131 H POC Glucose 153 H Lactic Acid Calcium 8.2 L Ionized Calcium Phosphorus 5.10 H Magnesium 2.40 H Direct Bilirubin 0.3 H AST ALT < 5 L Alkaline Phosphatase 319 H Lactate Dehydrogenase Troponin T C-Reactive Protein Total Protein 5.1 L Albumin 1.0 L Prealbumin Triglycerides Cholesterol LDL Cholesterol Direct HDL Cholesterol 25-OH Vitamin D Total PTH Intact Urine pH Urine WBC (Auto) Urine Creatinine Urine Total Protein Fluid Total Protein Vancomycin Trough Rheumatoid Factor Complement C4 Miscellaneous Test Crossmatch 10/10/16 10/10/16 10/11/16 17:50 23:30 04:15 WBC RBC Hgb Hct MCV MCH MCHC RDW Plt Count Lymph % (Auto) [place] % (Auto) Lymph # [place] # Baso # Seg Neutrophils % Seg Neuts % (Manual) Lymphocytes % (Manual) Monocytes % (Manual) Eosinophils % (Manual) Basophils % (Manual) Nucleated RBC % Seg Neutrophils # Seg Neutrophils # Man Lymphocytes # (Manual) Monocytes # (Manual) Eosinophils # (Manual) Basophils # (Manual) PT INR Fibrinogen dRVVT Confirm Interp Factor V Activity POC ABG pH POC ABG pCO2 POC ABG pO2 ABG pO2 ABG HCO3 ABG Base Excess ABG Hemoglobin Oxyhemoglobin Sodium Potassium Chloride 96.4 L Carbon Dioxide 21 L BUN 57 H Creatinine 2.1 H Glucose 151 H POC Glucose 146 H 141 H Lactic Acid Calcium 8.3 L Ionized Calcium Phosphorus Magnesium Direct Bilirubin AST ALT Alkaline Phosphatase Lactate Dehydrogenase Troponin T C-Reactive Protein Total Protein Albumin Prealbumin Triglycerides Cholesterol LDL Cholesterol Direct HDL Cholesterol 25-OH Vitamin D Total PTH Intact Urine pH Urine WBC (Auto) Urine Creatinine Urine Total Protein Fluid Total Protein Vancomycin Trough Rheumatoid Factor Complement C4 Miscellaneous Test Crossmatch 10/11/16 10/11/16 10/11/16 04:15 04:15 05:30 WBC 28.3 H RBC 3.12 L Hgb 9.3 L Hct 28.7 L D MCV MCH MCHC RDW 17.7 H Plt Count 128 L Lymph % (Auto) [place] % (Auto) Lymph # [place] # Baso # Seg Neutrophils % Seg Neuts % (Manual) Lymphocytes % (Manual) Monocytes % (Manual) Eosinophils % (Manual) Basophils % (Manual) Nucleated RBC % Seg Neutrophils # Seg Neutrophils # Man Lymphocytes # (Manual) Monocytes # (Manual) Eosinophils # (Manual) Basophils # (Manual) PT INR Fibrinogen dRVVT Confirm Interp Factor V Activity POC ABG pH POC ABG pCO2 POC ABG pO2 ABG pO2 ABG HCO3 ABG Base Excess ABG Hemoglobin Oxyhemoglobin Sodium Potassium Chloride Carbon Dioxide BUN Creatinine Glucose POC Glucose 167 H Lactic Acid Calcium Ionized Calcium Phosphorus Magnesium Direct Bilirubin AST ALT Alkaline Phosphatase Lactate Dehydrogenase Troponin T C-Reactive Protein 15.80 H Total Protein Albumin Prealbumin Triglycerides Cholesterol LDL Cholesterol Direct HDL Cholesterol 25-OH Vitamin D Total PTH Intact Urine pH Urine WBC (Auto) Urine Creatinine Urine Total Protein Fluid Total Protein Vancomycin Trough Rheumatoid Factor Complement C4 Miscellaneous Test Crossmatch 10/11/16 10/11/16 10/11/16 11:40 15:49 23:57 WBC RBC Hgb Hct MCV MCH MCHC RDW Plt Count Lymph % (Auto) [place] % (Auto) Lymph # [place] # Baso # Seg Neutrophils % Seg Neuts % (Manual) Lymphocytes % (Manual) Monocytes % (Manual) Eosinophils % (Manual) Basophils % (Manual) Nucleated RBC % Seg Neutrophils # Seg Neutrophils # Man Lymphocytes # (Manual) Monocytes # (Manual) Eosinophils # (Manual) Basophils # (Manual) PT INR Fibrinogen dRVVT Confirm Interp Factor V Activity POC ABG pH POC ABG pCO2 POC ABG pO2 ABG pO2 ABG HCO3 ABG Base Excess ABG Hemoglobin Oxyhemoglobin Sodium Potassium Chloride Carbon Dioxide BUN Creatinine Glucose POC Glucose 139 H 168 H 161 H Lactic Acid Calcium Ionized Calcium Phosphorus Magnesium Direct Bilirubin AST ALT Alkaline Phosphatase Lactate Dehydrogenase Troponin T C-Reactive Protein Total Protein Albumin Prealbumin Triglycerides Cholesterol LDL Cholesterol Direct HDL Cholesterol 25-OH Vitamin D Total PTH Intact Urine pH Urine WBC (Auto) Urine Creatinine Urine Total Protein Fluid Total Protein Vancomycin Trough Rheumatoid Factor Complement C4 Miscellaneous Test Crossmatch 10/12/16 10/12/16 10/12/16 04:40 04:40 05:44 WBC 22.5 H RBC 2.88 L Hgb 8.8 L Hct 26.8 L MCV MCH MCHC RDW 17.8 H Plt Count Lymph % (Auto) [place] % (Auto) Lymph # [place] # Baso # Seg Neutrophils % Seg Neuts % (Manual) Lymphocytes % (Manual) Monocytes % (Manual) Eosinophils % (Manual) Basophils % (Manual) Nucleated RBC % Seg Neutrophils # Seg Neutrophils # Man Lymphocytes # (Manual) Monocytes # (Manual) Eosinophils # (Manual) Basophils # (Manual) PT INR Fibrinogen dRVVT Confirm Interp Factor V Activity POC ABG pH POC ABG pCO2 POC ABG pO2 ABG pO2 ABG HCO3 ABG Base Excess ABG Hemoglobin Oxyhemoglobin Sodium 134 L Potassium Chloride 93.0 L Carbon Dioxide BUN 74 H Creatinine 2.5 H Glucose 137 H POC Glucose 158 H Lactic Acid Calcium 8.2 L Ionized Calcium Phosphorus Magnesium Direct Bilirubin AST ALT Alkaline Phosphatase Lactate Dehydrogenase Troponin T C-Reactive Protein Total Protein Albumin Prealbumin Triglycerides Cholesterol LDL Cholesterol Direct HDL Cholesterol 25-OH Vitamin D Total PTH Intact Urine pH Urine WBC (Auto) Urine Creatinine Urine Total Protein Fluid Total Protein Vancomycin Trough Rheumatoid Factor Complement C4 Miscellaneous Test Crossmatch 10/12/16 10/12/16 10/12/16 12:27 18:18 23:46 WBC RBC Hgb Hct MCV MCH MCHC RDW Plt Count Lymph % (Auto) [place] % (Auto) Lymph # [place] # Baso # Seg Neutrophils % Seg Neuts % (Manual) Lymphocytes % (Manual) Monocytes % (Manual) Eosinophils % (Manual) Basophils % (Manual) Nucleated RBC % Seg Neutrophils # Seg Neutrophils # Man Lymphocytes # (Manual) Monocytes # (Manual) Eosinophils # (Manual) Basophils # (Manual) PT INR Fibrinogen dRVVT Confirm Interp Factor V Activity POC ABG pH POC ABG pCO2 POC ABG pO2 ABG pO2 ABG HCO3 ABG Base Excess ABG Hemoglobin Oxyhemoglobin Sodium Potassium Chloride Carbon Dioxide BUN Creatinine Glucose POC Glucose 153 H 140 H 150 H Lactic Acid Calcium Ionized Calcium Phosphorus Magnesium Direct Bilirubin AST ALT Alkaline Phosphatase Lactate Dehydrogenase Troponin T C-Reactive Protein Total Protein Albumin Prealbumin Triglycerides Cholesterol LDL Cholesterol Direct HDL Cholesterol 25-OH Vitamin D Total PTH Intact Urine pH Urine WBC (Auto) Urine Creatinine Urine Total Protein Fluid Total Protein Vancomycin Trough Rheumatoid Factor Complement C4 Miscellaneous Test Crossmatch 10/13/16 10/13/16 10/13/16 06:22 09:20 12:29 WBC RBC Hgb Hct MCV MCH MCHC RDW Plt Count Lymph % (Auto) [place] % (Auto) Lymph # [place] # Baso # Seg Neutrophils % Seg Neuts % (Manual) Lymphocytes % (Manual) Monocytes % (Manual) Eosinophils % (Manual) Basophils % (Manual) Nucleated RBC % Seg Neutrophils # Seg Neutrophils # Man Lymphocytes # (Manual) Monocytes # (Manual) Eosinophils # (Manual) Basophils # (Manual) PT INR Fibrinogen dRVVT Confirm Interp Factor V Activity POC ABG pH POC ABG pCO2 POC ABG pO2 ABG pO2 ABG HCO3 ABG Base Excess ABG Hemoglobin Oxyhemoglobin Sodium Potassium Chloride Carbon Dioxide BUN Creatinine Glucose POC Glucose 165 H 193 H Lactic Acid Calcium Ionized Calcium Phosphorus Magnesium Direct Bilirubin AST ALT Alkaline Phosphatase Lactate Dehydrogenase Troponin T C-Reactive Protein Total Protein Albumin Prealbumin Triglycerides Cholesterol LDL Cholesterol Direct HDL Cholesterol 25-OH Vitamin D Total PTH Intact Urine pH Urine WBC (Auto) Urine Creatinine Urine Total Protein Fluid Total Protein Vancomycin Trough Rheumatoid Factor Complement C4 Miscellaneous Test Flexitest 1 H Crossmatch 10/13/16 10/13/16 10/13/16 18:09 Unknown Unknown WBC 23.4 H RBC 2.83 L Hgb 8.7 L Hct 26.1 L MCV MCH MCHC RDW 18.1 H Plt Count Lymph % (Auto) [place] % (Auto) Lymph # [place] # Baso # Seg Neutrophils % Seg Neuts % (Manual) Lymphocytes % (Manual) Monocytes % (Manual) Eosinophils % (Manual) Basophils % (Manual) Nucleated RBC % Seg Neutrophils # Seg Neutrophils # Man Lymphocytes # (Manual) Monocytes # (Manual) Eosinophils # (Manual) Basophils # (Manual) PT INR Fibrinogen dRVVT Confirm Interp Factor V Activity POC ABG pH POC ABG pCO2 POC ABG pO2 ABG pO2 ABG HCO3 ABG Base Excess ABG Hemoglobin Oxyhemoglobin Sodium Potassium Chloride 95.8 L Carbon Dioxide BUN 82 H Creatinine 2.6 H Glucose 152 H POC Glucose 166 H Lactic Acid Calcium Ionized Calcium Phosphorus Magnesium Direct Bilirubin AST ALT Alkaline Phosphatase Lactate Dehydrogenase Troponin T C-Reactive Protein Total Protein Albumin Prealbumin Triglycerides Cholesterol LDL Cholesterol Direct HDL Cholesterol 25-OH Vitamin D Total PTH Intact Urine pH Urine WBC (Auto) Urine Creatinine Urine Total Protein Fluid Total Protein Vancomycin Trough Rheumatoid Factor Complement C4 Miscellaneous Test Crossmatch 10/14/16 10/14/16 10/14/16 05:38 06:35 08:10 WBC 20.7 H RBC 2.81 L Hgb 8.4 L Hct 27.2 L MCV MCH MCHC RDW 19.4 H Plt Count Lymph % (Auto) [place] % (Auto) Lymph # [place] # Baso # Seg Neutrophils % Seg Neuts % (Manual) Lymphocytes % (Manual) Monocytes % (Manual) Eosinophils % (Manual) Basophils % (Manual) Nucleated RBC % Seg Neutrophils # Seg Neutrophils # Man Lymphocytes # (Manual) Monocytes # (Manual) Eosinophils # (Manual) Basophils # (Manual) PT INR Fibrinogen dRVVT Confirm Interp Factor V Activity POC ABG pH POC ABG pCO2 POC ABG pO2 ABG pO2 ABG HCO3 ABG Base Excess ABG Hemoglobin Oxyhemoglobin Sodium Potassium Chloride Carbon Dioxide BUN 58 H Creatinine 1.9 H Glucose 169 H POC Glucose 195 H Lactic Acid Calcium Ionized Calcium Phosphorus Magnesium Direct Bilirubin AST ALT Alkaline Phosphatase Lactate Dehydrogenase Troponin T C-Reactive Protein Total Protein Albumin Prealbumin Triglycerides Cholesterol LDL Cholesterol Direct HDL Cholesterol 25-OH Vitamin D Total PTH Intact Urine pH Urine WBC (Auto) Urine Creatinine Urine Total Protein Fluid Total Protein Vancomycin Trough Rheumatoid Factor Complement C4 Miscellaneous Test Crossmatch 10/14/16 10/14/16 10/14/16 11:44 17:13 23:28 WBC RBC Hgb Hct MCV MCH MCHC RDW Plt Count Lymph % (Auto) [place] % (Auto) Lymph # [place] # Baso # Seg Neutrophils % Seg Neuts % (Manual) Lymphocytes % (Manual) Monocytes % (Manual) Eosinophils % (Manual) Basophils % (Manual) Nucleated RBC % Seg Neutrophils # Seg Neutrophils # Man Lymphocytes # (Manual) Monocytes # (Manual) Eosinophils # (Manual) Basophils # (Manual) PT INR Fibrinogen dRVVT Confirm Interp Factor V Activity POC ABG pH POC ABG pCO2 POC ABG pO2 ABG pO2 ABG HCO3 ABG Base Excess ABG Hemoglobin Oxyhemoglobin Sodium Potassium Chloride Carbon Dioxide BUN Creatinine Glucose POC Glucose 174 H 121 H 151 H Lactic Acid Calcium Ionized Calcium Phosphorus Magnesium Direct Bilirubin AST ALT Alkaline Phosphatase Lactate Dehydrogenase Troponin T C-Reactive Protein Total Protein Albumin Prealbumin Triglycerides Cholesterol LDL Cholesterol Direct HDL Cholesterol 25-OH Vitamin D Total PTH Intact Urine pH Urine WBC (Auto) Urine Creatinine Urine Total Protein Fluid Total Protein Vancomycin Trough Rheumatoid Factor Complement C4 Miscellaneous Test Crossmatch 10/15/16 10/15/16 10/15/16 05:06 12:26 17:48 WBC RBC Hgb Hct MCV MCH MCHC RDW Plt Count Lymph % (Auto) [place] % (Auto) Lymph # [place] # Baso # Seg Neutrophils % Seg Neuts % (Manual) Lymphocytes % (Manual) Monocytes % (Manual) Eosinophils % (Manual) Basophils % (Manual) Nucleated RBC % Seg Neutrophils # Seg Neutrophils # Man Lymphocytes # (Manual) Monocytes # (Manual) Eosinophils # (Manual) Basophils # (Manual) PT INR Fibrinogen dRVVT Confirm Interp Factor V Activity POC ABG pH POC ABG pCO2 POC ABG pO2 ABG pO2 ABG HCO3 ABG Base Excess ABG Hemoglobin Oxyhemoglobin Sodium Potassium Chloride Carbon Dioxide BUN Creatinine Glucose POC Glucose 151 H 149 H 153 H Lactic Acid Calcium Ionized Calcium Phosphorus Magnesium Direct Bilirubin AST ALT Alkaline Phosphatase Lactate Dehydrogenase Troponin T C-Reactive Protein Total Protein Albumin Prealbumin Triglycerides Cholesterol LDL Cholesterol Direct HDL Cholesterol 25-OH Vitamin D Total PTH Intact Urine pH Urine WBC (Auto) Urine Creatinine Urine Total Protein Fluid Total Protein Vancomycin Trough Rheumatoid Factor Complement C4 Miscellaneous Test Crossmatch 10/15/16 10/15/16 10/16/16 Unknown Unknown 00:02 WBC 23.4 H RBC 2.78 L Hgb 8.5 L Hct 25.7 L MCV MCH MCHC RDW 18.7 H Plt Count Lymph % (Auto) [place] % (Auto) Lymph # [place] # Baso # Seg Neutrophils % Seg Neuts % (Manual) Lymphocytes % (Manual) Monocytes % (Manual) Eosinophils % (Manual) Basophils % (Manual) Nucleated RBC % Seg Neutrophils # Seg Neutrophils # Man Lymphocytes # (Manual) Monocytes # (Manual) Eosinophils # (Manual) Basophils # (Manual) PT INR Fibrinogen dRVVT Confirm Interp Factor V Activity POC ABG pH POC ABG pCO2 POC ABG pO2 ABG pO2 ABG HCO3 ABG Base Excess ABG Hemoglobin Oxyhemoglobin Sodium Potassium Chloride Carbon Dioxide BUN 73 H Creatinine 2.3 H Glucose 120 H POC Glucose 137 H Lactic Acid Calcium Ionized Calcium Phosphorus Magnesium Direct Bilirubin AST ALT Alkaline Phosphatase Lactate Dehydrogenase Troponin T C-Reactive Protein Total Protein Albumin Prealbumin Triglycerides Cholesterol LDL Cholesterol Direct HDL Cholesterol 25-OH Vitamin D Total PTH Intact Urine pH Urine WBC (Auto) Urine Creatinine Urine Total Protein Fluid Total Protein Vancomycin Trough Rheumatoid Factor Complement C4 Miscellaneous Test Crossmatch 10/16/16 10/16/16 10/16/16 05:44 06:25 06:25 WBC 22.5 H RBC 2.76 L Hgb 8.3 L Hct 25.2 L MCV MCH MCHC RDW 18.3 H Plt Count Lymph % (Auto) [place] % (Auto) Lymph # [place] # Baso # Seg Neutrophils % Seg Neuts % (Manual) Lymphocytes % (Manual) Monocytes % (Manual) Eosinophils % (Manual) Basophils % (Manual) Nucleated RBC % Seg Neutrophils # Seg Neutrophils # Man Lymphocytes # (Manual) Monocytes # (Manual) Eosinophils # (Manual) Basophils # (Manual) PT INR Fibrinogen dRVVT Confirm Interp Factor V Activity POC ABG pH POC ABG pCO2 POC ABG pO2 ABG pO2 ABG HCO3 ABG Base Excess ABG Hemoglobin Oxyhemoglobin Sodium Potassium Chloride Carbon Dioxide BUN 92 H Creatinine 3.0 H Glucose 138 H POC Glucose 110 H Lactic Acid Calcium Ionized Calcium Phosphorus Magnesium Direct Bilirubin AST ALT Alkaline Phosphatase Lactate Dehydrogenase Troponin T C-Reactive Protein Total Protein Albumin Prealbumin Triglycerides Cholesterol LDL Cholesterol Direct HDL Cholesterol 25-OH Vitamin D Total PTH Intact Urine pH Urine WBC (Auto) Urine Creatinine Urine Total Protein Fluid Total Protein Vancomycin Trough Rheumatoid Factor Complement C4 Miscellaneous Test Crossmatch 10/16/16 10/16/16 10/16/16 11:27 11:48 17:36 WBC RBC Hgb Hct MCV MCH MCHC RDW Plt Count Lymph % (Auto) [place] % (Auto) Lymph # [place] # Baso # Seg Neutrophils % Seg Neuts % (Manual) Lymphocytes % (Manual) Monocytes % (Manual) Eosinophils % (Manual) Basophils % (Manual) Nucleated RBC % Seg Neutrophils # Seg Neutrophils # Man Lymphocytes # (Manual) Monocytes # (Manual) Eosinophils # (Manual) Basophils # (Manual) PT INR Fibrinogen dRVVT Confirm Interp Factor V Activity POC ABG pH 7.582 H POC ABG pCO2 27.4 L POC ABG pO2 110 H ABG pO2 ABG HCO3 ABG Base Excess ABG Hemoglobin Oxyhemoglobin Sodium Potassium Chloride Carbon Dioxide BUN Creatinine Glucose POC Glucose 121 H 133 H Lactic Acid Calcium Ionized Calcium Phosphorus Magnesium Direct Bilirubin AST ALT Alkaline Phosphatase Lactate Dehydrogenase Troponin T C-Reactive Protein Total Protein Albumin Prealbumin Triglycerides Cholesterol LDL Cholesterol Direct HDL Cholesterol 25-OH Vitamin D Total PTH Intact Urine pH Urine WBC (Auto) Urine Creatinine Urine Total Protein Fluid Total Protein Vancomycin Trough Rheumatoid Factor Complement C4 Miscellaneous Test Crossmatch 10/16/16 10/17/16 10/17/16 20:48 04:24 04:24 WBC 21.4 H RBC 2.72 L Hgb 8.0 L Hct 25.2 L MCV MCH MCHC RDW 18.0 H Plt Count Lymph % (Auto) [place] % (Auto) Lymph # [place] # Baso # Seg Neutrophils % Seg Neuts % (Manual) Lymphocytes % (Manual) Monocytes % (Manual) Eosinophils % (Manual) Basophils % (Manual) Nucleated RBC % Seg Neutrophils # Seg Neutrophils # Man Lymphocytes # (Manual) Monocytes # (Manual) Eosinophils # (Manual) Basophils # (Manual) PT INR Fibrinogen dRVVT Confirm Interp Factor V Activity POC ABG pH 7.561 H POC ABG pCO2 24.4 L POC ABG pO2 77 L ABG pO2 ABG HCO3 ABG Base Excess ABG Hemoglobin Oxyhemoglobin Sodium 148 H Potassium Chloride Carbon Dioxide BUN 104 H Creatinine 3.0 H Glucose 149 H POC Glucose Lactic Acid Calcium Ionized Calcium Phosphorus Magnesium Direct Bilirubin AST ALT Alkaline Phosphatase 138 H Lactate Dehydrogenase Troponin T C-Reactive Protein Total Protein 6.2 L Albumin 1.5 L Prealbumin Triglycerides Cholesterol LDL Cholesterol Direct HDL Cholesterol 25-OH Vitamin D Total PTH Intact Urine pH Urine WBC (Auto) Urine Creatinine Urine Total Protein Fluid Total Protein Vancomycin Trough Rheumatoid Factor Complement C4 Miscellaneous Test Crossmatch 10/17/16 10/17/16 10/17/16 06:02 12:17 17:14 WBC RBC Hgb Hct MCV MCH MCHC RDW Plt Count Lymph % (Auto) [place] % (Auto) Lymph # [place] # Baso # Seg Neutrophils % Seg Neuts % (Manual) Lymphocytes % (Manual) Monocytes % (Manual) Eosinophils % (Manual) Basophils % (Manual) Nucleated RBC % Seg Neutrophils # Seg Neutrophils # Man Lymphocytes # (Manual) Monocytes # (Manual) Eosinophils # (Manual) Basophils # (Manual) PT INR Fibrinogen dRVVT Confirm Interp Factor V Activity POC ABG pH POC ABG pCO2 POC ABG pO2 ABG pO2 ABG HCO3 ABG Base Excess ABG Hemoglobin Oxyhemoglobin Sodium Potassium Chloride Carbon Dioxide BUN Creatinine Glucose POC Glucose 170 H 167 H 126 H Lactic Acid Calcium Ionized Calcium Phosphorus Magnesium Direct Bilirubin AST ALT Alkaline Phosphatase Lactate Dehydrogenase Troponin T C-Reactive Protein Total Protein Albumin Prealbumin Triglycerides Cholesterol LDL Cholesterol Direct HDL Cholesterol 25-OH Vitamin D Total PTH Intact Urine pH Urine WBC (Auto) Urine Creatinine Urine Total Protein Fluid Total Protein Vancomycin Trough Rheumatoid Factor Complement C4 Miscellaneous Test Crossmatch 10/17/16 10/18/16 10/18/16 23:17 04:00 04:00 WBC 20.7 H RBC 2.47 L Hgb 7.4 L Hct 22.9 L MCV MCH MCHC RDW 17.5 H Plt Count Lymph % (Auto) [place] % (Auto) Lymph # [place] # Baso # Seg Neutrophils % Seg Neuts % (Manual) Lymphocytes % (Manual) Monocytes % (Manual) Eosinophils % (Manual) Basophils % (Manual) Nucleated RBC % Seg Neutrophils # Seg Neutrophils # Man Lymphocytes # (Manual) Monocytes # (Manual) Eosinophils # (Manual) Basophils # (Manual) PT INR Fibrinogen dRVVT Confirm Interp Factor V Activity POC ABG pH POC ABG pCO2 POC ABG pO2 ABG pO2 ABG HCO3 ABG Base Excess ABG Hemoglobin Oxyhemoglobin Sodium 149 H Potassium Chloride 107.9 H Carbon Dioxide 20 L BUN 117 H Creatinine 3.2 H Glucose 119 H POC Glucose 121 H Lactic Acid Calcium Ionized Calcium Phosphorus Magnesium Direct Bilirubin AST ALT Alkaline Phosphatase Lactate Dehydrogenase Troponin T C-Reactive Protein Total Protein Albumin Prealbumin Triglycerides Cholesterol LDL Cholesterol Direct HDL Cholesterol 25-OH Vitamin D Total PTH Intact Urine pH Urine WBC (Auto) Urine Creatinine Urine Total Protein Fluid Total Protein Vancomycin Trough Rheumatoid Factor Complement C4 Miscellaneous Test Crossmatch 10/18/16 10/18/16 10/18/16 05:23 10:46 17:30 WBC RBC Hgb Hct MCV MCH MCHC RDW Plt Count Lymph % (Auto) [place] % (Auto) Lymph # [place] # Baso # Seg Neutrophils % Seg Neuts % (Manual) Lymphocytes % (Manual) Monocytes % (Manual) Eosinophils % (Manual) Basophils % (Manual) Nucleated RBC % Seg Neutrophils # Seg Neutrophils # Man Lymphocytes # (Manual) Monocytes # (Manual) Eosinophils # (Manual) Basophils # (Manual) PT INR Fibrinogen dRVVT Confirm Interp Factor V Activity POC ABG pH POC ABG pCO2 POC ABG pO2 ABG pO2 ABG HCO3 ABG Base Excess ABG Hemoglobin Oxyhemoglobin Sodium Potassium Chloride Carbon Dioxide BUN Creatinine Glucose POC Glucose 119 H 155 H 124 H Lactic Acid Calcium Ionized Calcium Phosphorus Magnesium Direct Bilirubin AST ALT Alkaline Phosphatase Lactate Dehydrogenase Troponin T C-Reactive Protein Total Protein Albumin Prealbumin Triglycerides Cholesterol LDL Cholesterol Direct HDL Cholesterol 25-OH Vitamin D Total PTH Intact Urine pH Urine WBC (Auto) Urine Creatinine Urine Total Protein Fluid Total Protein Vancomycin Trough Rheumatoid Factor Complement C4 Miscellaneous Test Crossmatch 10/19/16 10/19/16 10/19/16 04:00 04:00 05:25 WBC 17.4 H RBC 2.54 L Hgb 7.7 L Hct 23.6 L MCV MCH MCHC RDW 17.3 H Plt Count Lymph % (Auto) [place] % (Auto) Lymph # [place] # Baso # Seg Neutrophils % Seg Neuts % (Manual) Lymphocytes % (Manual) Monocytes % (Manual) Eosinophils % (Manual) Basophils % (Manual) Nucleated RBC % Seg Neutrophils # Seg Neutrophils # Man Lymphocytes # (Manual) Monocytes # (Manual) Eosinophils # (Manual) Basophils # (Manual) PT INR Fibrinogen dRVVT Confirm Interp Factor V Activity POC ABG pH POC ABG pCO2 POC ABG pO2 ABG pO2 ABG HCO3 ABG Base Excess ABG Hemoglobin Oxyhemoglobin Sodium Potassium Chloride Carbon Dioxide BUN 72 H Creatinine 2.1 H Glucose 116 H POC Glucose 119 H Lactic Acid Calcium Ionized Calcium Phosphorus Magnesium Direct Bilirubin AST ALT Alkaline Phosphatase Lactate Dehydrogenase Troponin T C-Reactive Protein Total Protein Albumin Prealbumin Triglycerides Cholesterol LDL Cholesterol Direct HDL Cholesterol 25-OH Vitamin D Total PTH Intact Urine pH Urine WBC (Auto) Urine Creatinine Urine Total Protein Fluid Total Protein Vancomycin Trough Rheumatoid Factor Complement C4 Miscellaneous Test Crossmatch 10/19/16 10/19/16 10/20/16 11:46 23:59 06:00 WBC RBC Hgb Hct MCV MCH MCHC RDW Plt Count Lymph % (Auto) [place] % (Auto) Lymph # [place] # Baso # Seg Neutrophils % Seg Neuts % (Manual) Lymphocytes % (Manual) Monocytes % (Manual) Eosinophils % (Manual) Basophils % (Manual) Nucleated RBC % Seg Neutrophils # Seg Neutrophils # Man Lymphocytes # (Manual) Monocytes # (Manual) Eosinophils # (Manual) Basophils # (Manual) PT INR Fibrinogen dRVVT Confirm Interp Factor V Activity POC ABG pH POC ABG pCO2 POC ABG pO2 ABG pO2 ABG HCO3 ABG Base Excess ABG Hemoglobin Oxyhemoglobin Sodium Potassium Chloride Carbon Dioxide 17 L BUN 94 H Creatinine 2.7 H Glucose POC Glucose 116 H 117 H Lactic Acid Calcium Ionized Calcium Phosphorus Magnesium Direct Bilirubin AST ALT Alkaline Phosphatase Lactate Dehydrogenase Troponin T C-Reactive Protein Total Protein Albumin Prealbumin Triglycerides Cholesterol LDL Cholesterol Direct HDL Cholesterol 25-OH Vitamin D Total PTH Intact Urine pH Urine WBC (Auto) Urine Creatinine Urine Total Protein Fluid Total Protein Vancomycin Trough Rheumatoid Factor Complement C4 Miscellaneous Test Crossmatch 10/20/16 10/20/16 10/20/16 06:00 11:49 16:00 WBC 19.7 H RBC 2.51 L Hgb 7.7 L Hct 23.5 L MCV MCH MCHC RDW 17.5 H Plt Count Lymph % (Auto) [place] % (Auto) Lymph # [place] # Baso # Seg Neutrophils % Seg Neuts % (Manual) Lymphocytes % (Manual) Monocytes % (Manual) Eosinophils % (Manual) Basophils % (Manual) Nucleated RBC % Seg Neutrophils # Seg Neutrophils # Man Lymphocytes # (Manual) Monocytes # (Manual) Eosinophils # (Manual) Basophils # (Manual) PT INR Fibrinogen dRVVT Confirm Interp Factor V Activity POC ABG pH POC ABG pCO2 POC ABG pO2 ABG pO2 ABG HCO3 ABG Base Excess ABG Hemoglobin Oxyhemoglobin Sodium Potassium Chloride Carbon Dioxide BUN Creatinine Glucose POC Glucose 117 H Lactic Acid Calcium Ionized Calcium Phosphorus Magnesium Direct Bilirubin AST ALT Alkaline Phosphatase Lactate Dehydrogenase Troponin T C-Reactive Protein Total Protein Albumin Prealbumin Triglycerides Cholesterol LDL Cholesterol Direct HDL Cholesterol 25-OH Vitamin D Total PTH Intact Urine pH Urine WBC (Auto) Urine Creatinine Urine Total Protein Fluid Total Protein Vancomycin Trough Rheumatoid Factor Complement C4 Miscellaneous Test Flexitest 1 H Crossmatch 10/20/16 10/20/16 10/21/16 18:36 23:39 04:00 WBC RBC Hgb Hct MCV MCH MCHC RDW Plt Count Lymph % (Auto) [place] % (Auto) Lymph # [place] # Baso # Seg Neutrophils % Seg Neuts % (Manual) Lymphocytes % (Manual) Monocytes % (Manual) Eosinophils % (Manual) Basophils % (Manual) Nucleated RBC % Seg Neutrophils # Seg Neutrophils # Man Lymphocytes # (Manual) Monocytes # (Manual) Eosinophils # (Manual) Basophils # (Manual) PT INR Fibrinogen dRVVT Confirm Interp Factor V Activity POC ABG pH POC ABG pCO2 POC ABG pO2 ABG pO2 ABG HCO3 ABG Base Excess ABG Hemoglobin Oxyhemoglobin Sodium Potassium 5.4 H D Chloride Carbon Dioxide 15 L BUN 110 H Creatinine 3.0 H Glucose POC Glucose 127 H 114 H Lactic Acid Calcium Ionized Calcium Phosphorus Magnesium Direct Bilirubin AST ALT Alkaline Phosphatase Lactate Dehydrogenase Troponin T C-Reactive Protein Total Protein Albumin Prealbumin Triglycerides Cholesterol LDL Cholesterol Direct HDL Cholesterol 25-OH Vitamin D Total PTH Intact Urine pH Urine WBC (Auto) Urine Creatinine Urine Total Protein Fluid Total Protein Vancomycin Trough Rheumatoid Factor Complement C4 Miscellaneous Test Crossmatch 10/21/16 10/21/16 10/22/16 05:54 23:46 05:18 WBC RBC Hgb Hct MCV MCH MCHC RDW Plt Count Lymph % (Auto) [place] % (Auto) Lymph # [place] # Baso # Seg Neutrophils % Seg Neuts % (Manual) Lymphocytes % (Manual) Monocytes % (Manual) Eosinophils % (Manual) Basophils % (Manual) Nucleated RBC % Seg Neutrophils # Seg Neutrophils # Man Lymphocytes # (Manual) Monocytes # (Manual) Eosinophils # (Manual) Basophils # (Manual) PT INR Fibrinogen dRVVT Confirm Interp Factor V Activity POC ABG pH POC ABG pCO2 POC ABG pO2 ABG pO2 ABG HCO3 ABG Base Excess ABG Hemoglobin Oxyhemoglobin Sodium Potassium Chloride Carbon Dioxide BUN Creatinine Glucose POC Glucose 119 H 108 H 109 H Lactic Acid Calcium Ionized Calcium Phosphorus Magnesium Direct Bilirubin AST ALT Alkaline Phosphatase Lactate Dehydrogenase Troponin T C-Reactive Protein Total Protein Albumin Prealbumin Triglycerides Cholesterol LDL Cholesterol Direct HDL Cholesterol 25-OH Vitamin D Total PTH Intact Urine pH Urine WBC (Auto) Urine Creatinine Urine Total Protein Fluid Total Protein Vancomycin Trough Rheumatoid Factor Complement C4 Miscellaneous Test Crossmatch 10/22/16 10/22/16 10/22/16 06:40 06:40 06:40 WBC 14.0 H RBC 2.03 L Hgb 7.0 L Hct 20.5 L MCV 98 H MCH 34 H MCHC 35 H RDW 17.8 H Plt Count Lymph % (Auto) [place] % (Auto) 9.9 H Lymph # [place] # 1.4 H Baso # 0.2 H Seg Neutrophils % 72.0 H Seg Neuts % (Manual) Lymphocytes % (Manual) Monocytes % (Manual) Eosinophils % (Manual) Basophils % (Manual) Nucleated RBC % Seg Neutrophils # 10.0 H Seg Neutrophils # Man Lymphocytes # (Manual) Monocytes # (Manual) Eosinophils # (Manual) Basophils # (Manual) PT INR Fibrinogen dRVVT Confirm Interp Factor V Activity POC ABG pH POC ABG pCO2 POC ABG pO2 ABG pO2 ABG HCO3 ABG Base Excess ABG Hemoglobin Oxyhemoglobin Sodium 130 L D Potassium Chloride 92.4 L Carbon Dioxide 20 L BUN 50 H Creatinine 1.6 H Glucose 589 H* POC Glucose Lactic Acid Calcium 7.8 L D Ionized Calcium Phosphorus Magnesium 1.60 L Direct Bilirubin AST ALT Alkaline Phosphatase Lactate Dehydrogenase Troponin T C-Reactive Protein Total Protein Albumin Prealbumin Triglycerides Cholesterol LDL Cholesterol Direct HDL Cholesterol 25-OH Vitamin D Total PTH Intact Urine pH Urine WBC (Auto) Urine Creatinine Urine Total Protein Fluid Total Protein Vancomycin Trough Rheumatoid Factor Complement C4 Miscellaneous Test Crossmatch 10/22/16 10/22/16 10/22/16 11:39 16:44 23:36 WBC RBC Hgb Hct MCV MCH MCHC RDW Plt Count Lymph % (Auto) [place] % (Auto) Lymph # [place] # Baso # Seg Neutrophils % Seg Neuts % (Manual) Lymphocytes % (Manual) Monocytes % (Manual) Eosinophils % (Manual) Basophils % (Manual) Nucleated RBC % Seg Neutrophils # Seg Neutrophils # Man Lymphocytes # (Manual) Monocytes # (Manual) Eosinophils # (Manual) Basophils # (Manual) PT INR Fibrinogen dRVVT Confirm Interp Factor V Activity POC ABG pH POC ABG pCO2 POC ABG pO2 ABG pO2 ABG HCO3 ABG Base Excess ABG Hemoglobin Oxyhemoglobin Sodium Potassium Chloride Carbon Dioxide BUN Creatinine Glucose POC Glucose 142 H 163 H 123 H Lactic Acid Calcium Ionized Calcium Phosphorus Magnesium Direct Bilirubin AST ALT Alkaline Phosphatase Lactate Dehydrogenase Troponin T C-Reactive Protein Total Protein Albumin Prealbumin Triglycerides Cholesterol LDL Cholesterol Direct HDL Cholesterol 25-OH Vitamin D Total PTH Intact Urine pH Urine WBC (Auto) Urine Creatinine Urine Total Protein Fluid Total Protein Vancomycin Trough Rheumatoid Factor Complement C4 Miscellaneous Test Crossmatch 10/23/16 10/23/16 10/23/16 04:58 06:00 12:12 WBC RBC Hgb Hct MCV MCH MCHC RDW Plt Count Lymph % (Auto) [place] % (Auto) Lymph # [place] # Baso # Seg Neutrophils % Seg Neuts % (Manual) Lymphocytes % (Manual) Monocytes % (Manual) Eosinophils % (Manual) Basophils % (Manual) Nucleated RBC % Seg Neutrophils # Seg Neutrophils # Man Lymphocytes # (Manual) Monocytes # (Manual) Eosinophils # (Manual) Basophils # (Manual) PT INR Fibrinogen dRVVT Confirm Interp Factor V Activity POC ABG pH POC ABG pCO2 POC ABG pO2 ABG pO2 ABG HCO3 ABG Base Excess ABG Hemoglobin Oxyhemoglobin Sodium 133 L Potassium 3.5 L Chloride 96.1 L Carbon Dioxide 18 L BUN 76 H Creatinine 2.1 H Glucose POC Glucose 133 H 138 H Lactic Acid Calcium 8.3 L Ionized Calcium Phosphorus Magnesium Direct Bilirubin AST ALT Alkaline Phosphatase Lactate Dehydrogenase Troponin T C-Reactive Protein Total Protein Albumin Prealbumin Triglycerides Cholesterol LDL Cholesterol Direct HDL Cholesterol 25-OH Vitamin D Total PTH Intact Urine pH Urine WBC (Auto) Urine Creatinine Urine Total Protein Fluid Total Protein Vancomycin Trough Rheumatoid Factor Complement C4 Miscellaneous Test Crossmatch 10/23/16 10/23/16 10/24/16 16:53 23:37 04:00 WBC RBC Hgb Hct MCV MCH MCHC RDW Plt Count Lymph % (Auto) [place] % (Auto) Lymph # [place] # Baso # Seg Neutrophils % Seg Neuts % (Manual) Lymphocytes % (Manual) Monocytes % (Manual) Eosinophils % (Manual) Basophils % (Manual) Nucleated RBC % Seg Neutrophils # Seg Neutrophils # Man Lymphocytes # (Manual) Monocytes # (Manual) Eosinophils # (Manual) Basophils # (Manual) PT INR Fibrinogen dRVVT Confirm Interp Factor V Activity POC ABG pH POC ABG pCO2 POC ABG pO2 ABG pO2 ABG HCO3 ABG Base Excess ABG Hemoglobin Oxyhemoglobin Sodium 131 L Potassium Chloride 94.5 L Carbon Dioxide 19 L BUN 97 H Creatinine 2.6 H Glucose 110 H POC Glucose 125 H 123 H Lactic Acid Calcium 8.3 L Ionized Calcium Phosphorus Magnesium Direct Bilirubin AST ALT Alkaline Phosphatase Lactate Dehydrogenase Troponin T C-Reactive Protein Total Protein Albumin Prealbumin Triglycerides Cholesterol LDL Cholesterol Direct HDL Cholesterol 25-OH Vitamin D Total PTH Intact Urine pH Urine WBC (Auto) Urine Creatinine Urine Total Protein Fluid Total Protein Vancomycin Trough Rheumatoid Factor Complement C4 Miscellaneous Test Crossmatch 10/24/16 10/24/16 10/24/16 07:49 11:39 17:52 WBC RBC Hgb 6.0 L Hct 19.7 L* MCV MCH MCHC RDW Plt Count Lymph % (Auto) [place] % (Auto) Lymph # [place] # Baso # Seg Neutrophils % Seg Neuts % (Manual) Lymphocytes % (Manual) Monocytes % (Manual) Eosinophils % (Manual) Basophils % (Manual) Nucleated RBC % Seg Neutrophils # Seg Neutrophils # Man Lymphocytes # (Manual) Monocytes # (Manual) Eosinophils # (Manual) Basophils # (Manual) PT INR Fibrinogen dRVVT Confirm Interp Factor V Activity POC ABG pH POC ABG pCO2 POC ABG pO2 ABG pO2 ABG HCO3 ABG Base Excess ABG Hemoglobin Oxyhemoglobin Sodium Potassium Chloride Carbon Dioxide BUN Creatinine Glucose POC Glucose 106 H 158 H Lactic Acid Calcium Ionized Calcium Phosphorus Magnesium Direct Bilirubin AST ALT Alkaline Phosphatase Lactate Dehydrogenase Troponin T C-Reactive Protein Total Protein Albumin Prealbumin Triglycerides Cholesterol LDL Cholesterol Direct HDL Cholesterol 25-OH Vitamin D Total PTH Intact Urine pH Urine WBC (Auto) Urine Creatinine Urine Total Protein Fluid Total Protein Vancomycin Trough Rheumatoid Factor Complement C4 Miscellaneous Test Crossmatch 10/24/16 10/24/16 10/24/16 20:00 22:27 Unknown WBC RBC Hgb 9.4 L D Hct 27.5 L D MCV MCH MCHC RDW Plt Count Lymph % (Auto) [place] % (Auto) Lymph # [place] # Baso # Seg Neutrophils % Seg Neuts % (Manual) Lymphocytes % (Manual) Monocytes % (Manual) Eosinophils % (Manual) Basophils % (Manual) Nucleated RBC % Seg Neutrophils # Seg Neutrophils # Man Lymphocytes # (Manual) Monocytes # (Manual) Eosinophils # (Manual) Basophils # (Manual) PT INR Fibrinogen dRVVT Confirm Interp Factor V Activity POC ABG pH POC ABG pCO2 POC ABG pO2 ABG pO2 ABG HCO3 ABG Base Excess ABG Hemoglobin Oxyhemoglobin Sodium Potassium Chloride Carbon Dioxide BUN Creatinine Glucose POC Glucose 125 H Lactic Acid Calcium Ionized Calcium Phosphorus Magnesium Direct Bilirubin AST ALT Alkaline Phosphatase Lactate Dehydrogenase Troponin T C-Reactive Protein Total Protein Albumin Prealbumin Triglycerides Cholesterol LDL Cholesterol Direct HDL Cholesterol 25-OH Vitamin D Total PTH Intact Urine pH Urine WBC (Auto) Urine Creatinine Urine Total Protein Fluid Total Protein Vancomycin Trough Rheumatoid Factor Complement C4 Miscellaneous Test Crossmatch See Detail 10/25/16 10/25/16 10/25/16 04:00 04:00 04:00 WBC 14.2 H RBC 2.98 L Hgb 9.0 L Hct 26.2 L MCV MCH MCHC RDW 16.6 H Plt Count Lymph % (Auto) [place] % (Auto) 10.7 H Lymph # [place] # 1.5 H Baso # Seg Neutrophils % 73.6 H Seg Neuts % (Manual) Lymphocytes % (Manual) Monocytes % (Manual) Eosinophils % (Manual) Basophils % (Manual) Nucleated RBC % Seg Neutrophils # 10.5 H Seg Neutrophils # Man Lymphocytes # (Manual) Monocytes # (Manual) Eosinophils # (Manual) Basophils # (Manual) PT INR Fibrinogen dRVVT Confirm Interp Factor V Activity POC ABG pH POC ABG pCO2 POC ABG pO2 ABG pO2 ABG HCO3 ABG Base Excess ABG Hemoglobin Oxyhemoglobin Sodium 132 L Potassium Chloride 94.7 L Carbon Dioxide BUN 51 H Creatinine 1.6 H Glucose 130 H POC Glucose Lactic Acid Calcium 8.3 L Ionized Calcium Phosphorus 1.60 L D Magnesium Direct Bilirubin AST ALT Alkaline Phosphatase Lactate Dehydrogenase Troponin T C-Reactive Protein Total Protein Albumin Prealbumin Triglycerides Cholesterol LDL Cholesterol Direct HDL Cholesterol 25-OH Vitamin D Total PTH Intact Urine pH Urine WBC (Auto) Urine Creatinine Urine Total Protein Fluid Total Protein Vancomycin Trough Rheumatoid Factor Complement C4 Miscellaneous Test Crossmatch 10/25/16 10/25/16 10/25/16 04:32 11:48 17:22 WBC RBC Hgb Hct MCV MCH MCHC RDW Plt Count Lymph % (Auto) [place] % (Auto) Lymph # [place] # Baso # Seg Neutrophils % Seg Neuts % (Manual) Lymphocytes % (Manual) Monocytes % (Manual) Eosinophils % (Manual) Basophils % (Manual) Nucleated RBC % Seg Neutrophils # Seg Neutrophils # Man Lymphocytes # (Manual) Monocytes # (Manual) Eosinophils # (Manual) Basophils # (Manual) PT INR Fibrinogen dRVVT Confirm Interp Factor V Activity POC ABG pH POC ABG pCO2 POC ABG pO2 ABG pO2 ABG HCO3 ABG Base Excess ABG Hemoglobin Oxyhemoglobin Sodium Potassium Chloride Carbon Dioxide BUN Creatinine Glucose POC Glucose 124 H 171 H 120 H Lactic Acid Calcium Ionized Calcium Phosphorus Magnesium Direct Bilirubin AST ALT Alkaline Phosphatase Lactate Dehydrogenase Troponin T C-Reactive Protein Total Protein Albumin Prealbumin Triglycerides Cholesterol LDL Cholesterol Direct HDL Cholesterol 25-OH Vitamin D Total PTH Intact Urine pH Urine WBC (Auto) Urine Creatinine Urine Total Protein Fluid Total Protein Vancomycin Trough Rheumatoid Factor Complement C4 Miscellaneous Test Crossmatch 10/26/16 10/26/16 10/26/16 04:54 07:06 07:06 WBC 16.9 H RBC 3.06 L Hgb 9.1 L Hct 26.9 L MCV MCH MCHC RDW 16.9 H Plt Count Lymph % (Auto) [place] % (Auto) Lymph # [place] # Baso # Seg Neutrophils % Seg Neuts % (Manual) 71.0 H Lymphocytes % (Manual) 5.0 L Monocytes % (Manual) 12.0 H Eosinophils % (Manual) Basophils % (Manual) Nucleated RBC % Seg Neutrophils # Seg Neutrophils # Man 12.0 H Lymphocytes # (Manual) 0.8 L Monocytes # (Manual) 2.0 H Eosinophils # (Manual) Basophils # (Manual) PT INR Fibrinogen dRVVT Confirm Interp Factor V Activity POC ABG pH POC ABG pCO2 POC ABG pO2 ABG pO2 ABG HCO3 ABG Base Excess ABG Hemoglobin Oxyhemoglobin Sodium 135 L Potassium Chloride 97.1 L Carbon Dioxide BUN 73 H Creatinine 2.2 H Glucose 117 H POC Glucose 123 H Lactic Acid Calcium Ionized Calcium Phosphorus 1.70 L Magnesium Direct Bilirubin AST ALT Alkaline Phosphatase Lactate Dehydrogenase Troponin T C-Reactive Protein Total Protein Albumin Prealbumin Triglycerides Cholesterol LDL Cholesterol Direct HDL Cholesterol 25-OH Vitamin D Total PTH Intact Urine pH Urine WBC (Auto) Urine Creatinine Urine Total Protein Fluid Total Protein Vancomycin Trough Rheumatoid Factor Complement C4 Miscellaneous Test Crossmatch 10/26/16 10/26/16 10/26/16 12:12 17:29 23:42 WBC RBC Hgb Hct MCV MCH MCHC RDW Plt Count Lymph % (Auto) [place] % (Auto) Lymph # [place] # Baso # Seg Neutrophils % Seg Neuts % (Manual) Lymphocytes % (Manual) Monocytes % (Manual) Eosinophils % (Manual) Basophils % (Manual) Nucleated RBC % Seg Neutrophils # Seg Neutrophils # Man Lymphocytes # (Manual) Monocytes # (Manual) Eosinophils # (Manual) Basophils # (Manual) PT INR Fibrinogen dRVVT Confirm Interp Factor V Activity POC ABG pH POC ABG pCO2 POC ABG pO2 ABG pO2 ABG HCO3 ABG Base Excess ABG Hemoglobin Oxyhemoglobin Sodium Potassium Chloride Carbon Dioxide BUN Creatinine Glucose POC Glucose 126 H 161 H 118 H Lactic Acid Calcium Ionized Calcium Phosphorus Magnesium Direct Bilirubin AST ALT Alkaline Phosphatase Lactate Dehydrogenase Troponin T C-Reactive Protein Total Protein Albumin Prealbumin Triglycerides Cholesterol LDL Cholesterol Direct HDL Cholesterol 25-OH Vitamin D Total PTH Intact Urine pH Urine WBC (Auto) Urine Creatinine Urine Total Protein Fluid Total Protein Vancomycin Trough Rheumatoid Factor Complement C4 Miscellaneous Test Crossmatch 10/27/16 10/27/16 10/27/16 05:03 06:30 06:30 WBC 13.9 H RBC 3.09 L Hgb 9.2 L Hct 27.5 L MCV MCH MCHC RDW 17.0 H Plt Count Lymph % (Auto) [place] % (Auto) Lymph # [place] # Baso # Seg Neutrophils % Seg Neuts % (Manual) 78.0 H Lymphocytes % (Manual) Monocytes % (Manual) Eosinophils % (Manual) Basophils % (Manual) Nucleated RBC % 2.0 H Seg Neutrophils # Seg Neutrophils # Man 10.8 H Lymphocytes # (Manual) Monocytes # (Manual) 1.0 H Eosinophils # (Manual) Basophils # (Manual) PT INR Fibrinogen dRVVT Confirm Interp Factor V Activity POC ABG pH POC ABG pCO2 POC ABG pO2 ABG pO2 ABG HCO3 ABG Base Excess ABG Hemoglobin Oxyhemoglobin Sodium Potassium Chloride Carbon Dioxide BUN 40 H Creatinine 1.5 H Glucose 135 H POC Glucose 107 H Lactic Acid Calcium 8.3 L Ionized Calcium Phosphorus 1.30 L D Magnesium Direct Bilirubin AST ALT Alkaline Phosphatase Lactate Dehydrogenase Troponin T C-Reactive Protein Total Protein Albumin Prealbumin Triglycerides Cholesterol LDL Cholesterol Direct HDL Cholesterol 25-OH Vitamin D Total PTH Intact Urine pH Urine WBC (Auto) Urine Creatinine Urine Total Protein Fluid Total Protein Vancomycin Trough Rheumatoid Factor Complement C4 Miscellaneous Test Crossmatch 10/27/16 10/27/16 10/27/16 13:27 18:07 23:40 WBC RBC Hgb Hct MCV MCH MCHC RDW Plt Count Lymph % (Auto) [place] % (Auto) Lymph # [place] # Baso # Seg Neutrophils % Seg Neuts % (Manual) Lymphocytes % (Manual) Monocytes % (Manual) Eosinophils % (Manual) Basophils % (Manual) Nucleated RBC % Seg Neutrophils # Seg Neutrophils # Man Lymphocytes # (Manual) Monocytes # (Manual) Eosinophils # (Manual) Basophils # (Manual) PT INR Fibrinogen dRVVT Confirm Interp Factor V Activity POC ABG pH POC ABG pCO2 POC ABG pO2 ABG pO2 ABG HCO3 ABG Base Excess ABG Hemoglobin Oxyhemoglobin Sodium Potassium Chloride Carbon Dioxide BUN Creatinine Glucose POC Glucose 117 H 121 H 118 H Lactic Acid Calcium Ionized Calcium Phosphorus Magnesium Direct Bilirubin AST ALT Alkaline Phosphatase Lactate Dehydrogenase Troponin T C-Reactive Protein Total Protein Albumin Prealbumin Triglycerides Cholesterol LDL Cholesterol Direct HDL Cholesterol 25-OH Vitamin D Total PTH Intact Urine pH Urine WBC (Auto) Urine Creatinine Urine Total Protein Fluid Total Protein Vancomycin Trough Rheumatoid Factor Complement C4 Miscellaneous Test Crossmatch 10/28/16 10/28/16 10/28/16 05:48 06:45 06:45 WBC 14.7 H RBC 3.05 L Hgb 9.0 L Hct 26.9 L MCV MCH MCHC RDW 16.8 H Plt Count Lymph % (Auto) 8.2 L [place] % (Auto) 8.4 H Lymph # [place] # 1.2 H Baso # Seg Neutrophils % 81.9 H Seg Neuts % (Manual) Lymphocytes % (Manual) Monocytes % (Manual) Eosinophils % (Manual) Basophils % (Manual) Nucleated RBC % Seg Neutrophils # 12.1 H Seg Neutrophils # Man Lymphocytes # (Manual) Monocytes # (Manual) Eosinophils # (Manual) Basophils # (Manual) PT INR Fibrinogen dRVVT Confirm Interp Factor V Activity POC ABG pH POC ABG pCO2 POC ABG pO2 ABG pO2 ABG HCO3 ABG Base Excess ABG Hemoglobin Oxyhemoglobin Sodium Potassium Chloride Carbon Dioxide BUN 60 H Creatinine 1.9 H Glucose 120 H POC Glucose 114 H Lactic Acid Calcium Ionized Calcium Phosphorus Magnesium Direct Bilirubin AST ALT Alkaline Phosphatase Lactate Dehydrogenase Troponin T C-Reactive Protein Total Protein Albumin Prealbumin Triglycerides Cholesterol LDL Cholesterol Direct HDL Cholesterol 25-OH Vitamin D Total PTH Intact Urine pH Urine WBC (Auto) Urine Creatinine Urine Total Protein Fluid Total Protein Vancomycin Trough Rheumatoid Factor Complement C4 Miscellaneous Test Crossmatch 10/28/16 10/28/16 10/29/16 17:08 23:50 05:10 WBC RBC Hgb Hct MCV MCH MCHC RDW Plt Count Lymph % (Auto) [place] % (Auto) Lymph # [place] # Baso # Seg Neutrophils % Seg Neuts % (Manual) Lymphocytes % (Manual) Monocytes % (Manual) Eosinophils % (Manual) Basophils % (Manual) Nucleated RBC % Seg Neutrophils # Seg Neutrophils # Man Lymphocytes # (Manual) Monocytes # (Manual) Eosinophils # (Manual) Basophils # (Manual) PT INR Fibrinogen dRVVT Confirm Interp Factor V Activity POC ABG pH POC ABG pCO2 POC ABG pO2 ABG pO2 ABG HCO3 ABG Base Excess ABG Hemoglobin Oxyhemoglobin Sodium Potassium Chloride Carbon Dioxide BUN Creatinine Glucose POC Glucose 109 H 110 H 124 H Lactic Acid Calcium Ionized Calcium Phosphorus Magnesium Direct Bilirubin AST ALT Alkaline Phosphatase Lactate Dehydrogenase Troponin T C-Reactive Protein Total Protein Albumin Prealbumin Triglycerides Cholesterol LDL Cholesterol Direct HDL Cholesterol 25-OH Vitamin D Total PTH Intact Urine pH Urine WBC (Auto) Urine Creatinine Urine Total Protein Fluid Total Protein Vancomycin Trough Rheumatoid Factor Complement C4 Miscellaneous Test Crossmatch 10/29/16 10/29/16 10/29/16 07:45 07:45 12:19 WBC 14.7 H RBC 3.15 L Hgb 9.3 L Hct 28.9 L MCV MCH MCHC RDW 17.0 H Plt Count Lymph % (Auto) 11.9 L [place] % (Auto) 8.6 H Lymph # [place] # 1.3 H Baso # Seg Neutrophils % 78.1 H Seg Neuts % (Manual) Lymphocytes % (Manual) Monocytes % (Manual) Eosinophils % (Manual) Basophils % (Manual) Nucleated RBC % Seg Neutrophils # 11.4 H Seg Neutrophils # Man Lymphocytes # (Manual) Monocytes # (Manual) Eosinophils # (Manual) Basophils # (Manual) PT INR Fibrinogen dRVVT Confirm Interp Factor V Activity POC ABG pH POC ABG pCO2 POC ABG pO2 ABG pO2 ABG HCO3 ABG Base Excess ABG Hemoglobin Oxyhemoglobin Sodium Potassium 5.1 H Chloride Carbon Dioxide 19 L BUN 78 H Creatinine 2.2 H Glucose 116 H POC Glucose 118 H Lactic Acid Calcium Ionized Calcium Phosphorus Magnesium Direct Bilirubin AST ALT Alkaline Phosphatase Lactate Dehydrogenase Troponin T C-Reactive Protein Total Protein Albumin Prealbumin Triglycerides Cholesterol LDL Cholesterol Direct HDL Cholesterol 25-OH Vitamin D Total PTH Intact Urine pH Urine WBC (Auto) Urine Creatinine Urine Total Protein Fluid Total Protein Vancomycin Trough Rheumatoid Factor Complement C4 Miscellaneous Test Crossmatch 10/29/16 10/30/16 10/30/16 17:49 01:52 03:28 WBC RBC Hgb Hct MCV MCH MCHC RDW Plt Count Lymph % (Auto) [place] % (Auto) Lymph # [place] # Baso # Seg Neutrophils % Seg Neuts % (Manual) Lymphocytes % (Manual) Monocytes % (Manual) Eosinophils % (Manual) Basophils % (Manual) Nucleated RBC % Seg Neutrophils # Seg Neutrophils # Man Lymphocytes # (Manual) Monocytes # (Manual) Eosinophils # (Manual) Basophils # (Manual) PT INR Fibrinogen dRVVT Confirm Interp Factor V Activity POC ABG pH POC ABG pCO2 POC ABG pO2 ABG pO2 ABG HCO3 ABG Base Excess ABG Hemoglobin Oxyhemoglobin Sodium Potassium 5.4 H Chloride 97.5 L Carbon Dioxide 19 L BUN 90 H Creatinine 2.5 H Glucose POC Glucose 120 H 129 H Lactic Acid Calcium Ionized Calcium Phosphorus 5.20 H Magnesium Direct Bilirubin AST ALT Alkaline Phosphatase Lactate Dehydrogenase Troponin T C-Reactive Protein Total Protein Albumin Prealbumin Triglycerides Cholesterol LDL Cholesterol Direct HDL Cholesterol 25-OH Vitamin D Total PTH Intact Urine pH Urine WBC (Auto) Urine Creatinine Urine Total Protein Fluid Total Protein Vancomycin Trough Rheumatoid Factor Complement C4 Miscellaneous Test Crossmatch 10/30/16 10/30/16 10/30/16 03:28 08:19 08:19 WBC 11.6 H 15.9 H RBC 2.75 L 2.82 L Hgb 7.9 L 8.3 L Hct 24.2 L 25.2 L MCV MCH MCHC RDW 16.7 H 17.2 H Plt Count Lymph % (Auto) [place] % (Auto) 9.8 H Lymph # [place] # 1.1 H Baso # Seg Neutrophils % 74.2 H Seg Neuts % (Manual) Lymphocytes % (Manual) Monocytes % (Manual) Eosinophils % (Manual) Basophils % (Manual) Nucleated RBC % Seg Neutrophils # 8.6 H Seg Neutrophils # Man Lymphocytes # (Manual) Monocytes # (Manual) Eosinophils # (Manual) Basophils # (Manual) PT INR Fibrinogen dRVVT Confirm Interp Factor V Activity POC ABG pH POC ABG pCO2 POC ABG pO2 ABG pO2 ABG HCO3 ABG Base Excess ABG Hemoglobin Oxyhemoglobin Sodium Potassium 5.3 H Chloride 97.4 L Carbon Dioxide 19 L BUN 93 H Creatinine 2.6 H Glucose POC Glucose Lactic Acid Calcium Ionized Calcium Phosphorus Magnesium Direct Bilirubin AST ALT Alkaline Phosphatase Lactate Dehydrogenase Troponin T C-Reactive Protein Total Protein Albumin Prealbumin Triglycerides Cholesterol LDL Cholesterol Direct HDL Cholesterol 25-OH Vitamin D Total PTH Intact Urine pH Urine WBC (Auto) Urine Creatinine Urine Total Protein Fluid Total Protein Vancomycin Trough Rheumatoid Factor Complement C4 Miscellaneous Test Crossmatch 10/30/16 10/30/16 10/31/16 17:11 23:56 00:40 WBC RBC Hgb Hct MCV MCH MCHC RDW Plt Count Lymph % (Auto) [place] % (Auto) Lymph # [place] # Baso # Seg Neutrophils % Seg Neuts % (Manual) Lymphocytes % (Manual) Monocytes % (Manual) Eosinophils % (Manual) Basophils % (Manual) Nucleated RBC % Seg Neutrophils # Seg Neutrophils # Man Lymphocytes # (Manual) Monocytes # (Manual) Eosinophils # (Manual) Basophils # (Manual) PT INR Fibrinogen dRVVT Confirm Interp Factor V Activity POC ABG pH POC ABG pCO2 POC ABG pO2 ABG pO2 ABG HCO3 ABG Base Excess ABG Hemoglobin Oxyhemoglobin Sodium Potassium Chloride Carbon Dioxide BUN Creatinine Glucose POC Glucose 106 H 117 H 120 H Lactic Acid Calcium Ionized Calcium Phosphorus Magnesium Direct Bilirubin AST ALT Alkaline Phosphatase Lactate Dehydrogenase Troponin T C-Reactive Protein Total Protein Albumin Prealbumin Triglycerides Cholesterol LDL Cholesterol Direct HDL Cholesterol 25-OH Vitamin D Total PTH Intact Urine pH Urine WBC (Auto) Urine Creatinine Urine Total Protein Fluid Total Protein Vancomycin Trough Rheumatoid Factor Complement C4 Miscellaneous Test Crossmatch 10/31/16 10/31/16 10/31/16 05:43 07:15 07:15 WBC 12.1 H RBC 2.63 L Hgb 7.7 L Hct 23.3 L MCV MCH MCHC RDW 16.7 H Plt Count Lymph % (Auto) 11.7 L [place] % (Auto) 7.7 H Lymph # [place] # 0.9 H Baso # Seg Neutrophils % 78.0 H Seg Neuts % (Manual) Lymphocytes % (Manual) Monocytes % (Manual) Eosinophils % (Manual) Basophils % (Manual) Nucleated RBC % Seg Neutrophils # 9.4 H Seg Neutrophils # Man Lymphocytes # (Manual) Monocytes # (Manual) Eosinophils # (Manual) Basophils # (Manual) PT INR Fibrinogen dRVVT Confirm Interp Factor V Activity POC ABG pH POC ABG pCO2 POC ABG pO2 ABG pO2 ABG HCO3 ABG Base Excess ABG Hemoglobin Oxyhemoglobin Sodium Potassium Chloride 96.4 L Carbon Dioxide 21 L BUN 99 H Creatinine 2.6 H Glucose 144 H POC Glucose 125 H Lactic Acid Calcium Ionized Calcium Phosphorus 4.80 H Magnesium Direct Bilirubin AST ALT Alkaline Phosphatase Lactate Dehydrogenase Troponin T C-Reactive Protein Total Protein Albumin Prealbumin Triglycerides Cholesterol LDL Cholesterol Direct HDL Cholesterol 25-OH Vitamin D Total PTH Intact Urine pH Urine WBC (Auto) Urine Creatinine Urine Total Protein Fluid Total Protein Vancomycin Trough Rheumatoid Factor Complement C4 Miscellaneous Test Crossmatch 10/31/16 10/31/16 11/01/16 11:46 18:34 00:20 WBC RBC Hgb Hct MCV MCH MCHC RDW Plt Count Lymph % (Auto) [place] % (Auto) Lymph # [place] # Baso # Seg Neutrophils % Seg Neuts % (Manual) Lymphocytes % (Manual) Monocytes % (Manual) Eosinophils % (Manual) Basophils % (Manual) Nucleated RBC % Seg Neutrophils # Seg Neutrophils # Man Lymphocytes # (Manual) Monocytes # (Manual) Eosinophils # (Manual) Basophils # (Manual) PT INR Fibrinogen dRVVT Confirm Interp Factor V Activity POC ABG pH POC ABG pCO2 POC ABG pO2 ABG pO2 ABG HCO3 ABG Base Excess ABG Hemoglobin Oxyhemoglobin Sodium Potassium Chloride Carbon Dioxide BUN Creatinine Glucose POC Glucose 159 H 140 H 132 H Lactic Acid Calcium Ionized Calcium Phosphorus Magnesium Direct Bilirubin AST ALT Alkaline Phosphatase Lactate Dehydrogenase Troponin T C-Reactive Protein Total Protein Albumin Prealbumin Triglycerides Cholesterol LDL Cholesterol Direct HDL Cholesterol 25-OH Vitamin D Total PTH Intact Urine pH Urine WBC (Auto) Urine Creatinine Urine Total Protein Fluid Total Protein Vancomycin Trough Rheumatoid Factor Complement C4 Miscellaneous Test Crossmatch 11/01/16 11/01/16 11/01/16 04:55 04:55 06:11 WBC 11.2 H RBC 2.68 L Hgb 7.5 L Hct 23.7 L MCV MCH MCHC RDW 16.1 H Plt Count Lymph % (Auto) [place] % (Auto) 9.8 H Lymph # [place] # 1.1 H Baso # Seg Neutrophils % 70.8 H Seg Neuts % (Manual) Lymphocytes % (Manual) Monocytes % (Manual) Eosinophils % (Manual) Basophils % (Manual) Nucleated RBC % Seg Neutrophils # 7.9 H Seg Neutrophils # Man Lymphocytes # (Manual) Monocytes # (Manual) Eosinophils # (Manual) Basophils # (Manual) PT INR Fibrinogen dRVVT Confirm Interp Factor V Activity POC ABG pH POC ABG pCO2 POC ABG pO2 ABG pO2 ABG HCO3 ABG Base Excess ABG Hemoglobin Oxyhemoglobin Sodium Potassium 3.3 L D Chloride Carbon Dioxide BUN 61 H Creatinine 1.9 H Glucose 114 H POC Glucose 115 H Lactic Acid Calcium Ionized Calcium Phosphorus 1.80 L D Magnesium Direct Bilirubin AST ALT Alkaline Phosphatase Lactate Dehydrogenase Troponin T C-Reactive Protein Total Protein Albumin Prealbumin Triglycerides Cholesterol LDL Cholesterol Direct HDL Cholesterol 25-OH Vitamin D Total PTH Intact Urine pH Urine WBC (Auto) Urine Creatinine Urine Total Protein Fluid Total Protein Vancomycin Trough Rheumatoid Factor Complement C4 Miscellaneous Test Crossmatch 11/01/16 11/01/16 11/01/16 12:29 18:23 23:58 WBC RBC Hgb Hct MCV MCH MCHC RDW Plt Count Lymph % (Auto) [place] % (Auto) Lymph # [place] # Baso # Seg Neutrophils % Seg Neuts % (Manual) Lymphocytes % (Manual) Monocytes % (Manual) Eosinophils % (Manual) Basophils % (Manual) Nucleated RBC % Seg Neutrophils # Seg Neutrophils # Man Lymphocytes # (Manual) Monocytes # (Manual) Eosinophils # (Manual) Basophils # (Manual) PT INR Fibrinogen dRVVT Confirm Interp Factor V Activity POC ABG pH POC ABG pCO2 POC ABG pO2 ABG pO2 ABG HCO3 ABG Base Excess ABG Hemoglobin Oxyhemoglobin Sodium Potassium Chloride Carbon Dioxide BUN Creatinine Glucose POC Glucose 142 H 143 H 128 H Lactic Acid Calcium Ionized Calcium Phosphorus Magnesium Direct Bilirubin AST ALT Alkaline Phosphatase Lactate Dehydrogenase Troponin T C-Reactive Protein Total Protein Albumin Prealbumin Triglycerides Cholesterol LDL Cholesterol Direct HDL Cholesterol 25-OH Vitamin D Total PTH Intact Urine pH Urine WBC (Auto) Urine Creatinine Urine Total Protein Fluid Total Protein Vancomycin Trough Rheumatoid Factor Complement C4 Miscellaneous Test Crossmatch 11/02/16 11/02/16 11/02/16 04:16 05:29 11:58 WBC RBC Hgb Hct MCV MCH MCHC RDW Plt Count Lymph % (Auto) [place] % (Auto) Lymph # [place] # Baso # Seg Neutrophils % Seg Neuts % (Manual) Lymphocytes % (Manual) Monocytes % (Manual) Eosinophils % (Manual) Basophils % (Manual) Nucleated RBC % Seg Neutrophils # Seg Neutrophils # Man Lymphocytes # (Manual) Monocytes # (Manual) Eosinophils # (Manual) Basophils # (Manual) PT INR Fibrinogen dRVVT Confirm Interp Factor V Activity POC ABG pH POC ABG pCO2 POC ABG pO2 ABG pO2 ABG HCO3 ABG Base Excess ABG Hemoglobin Oxyhemoglobin Sodium Potassium 3.1 L Chloride Carbon Dioxide BUN 73 H Creatinine 2.3 H Glucose 112 H POC Glucose 135 H 149 H Lactic Acid Calcium Ionized Calcium Phosphorus Magnesium Direct Bilirubin AST ALT Alkaline Phosphatase Lactate Dehydrogenase Troponin T C-Reactive Protein Total Protein Albumin Prealbumin Triglycerides Cholesterol LDL Cholesterol Direct HDL Cholesterol 25-OH Vitamin D Total PTH Intact Urine pH Urine WBC (Auto) Urine Creatinine Urine Total Protein Fluid Total Protein Vancomycin Trough Rheumatoid Factor Complement C4 Miscellaneous Test Crossmatch 11/02/16 11/02/16 11/03/16 17:42 22:54 06:00 WBC RBC Hgb Hct MCV MCH MCHC RDW Plt Count Lymph % (Auto) [place] % (Auto) Lymph # [place] # Baso # Seg Neutrophils % Seg Neuts % (Manual) Lymphocytes % (Manual) Monocytes % (Manual) Eosinophils % (Manual) Basophils % (Manual) Nucleated RBC % Seg Neutrophils # Seg Neutrophils # Man Lymphocytes # (Manual) Monocytes # (Manual) Eosinophils # (Manual) Basophils # (Manual) PT INR Fibrinogen dRVVT Confirm Interp Factor V Activity POC ABG pH POC ABG pCO2 POC ABG pO2 ABG pO2 ABG HCO3 ABG Base Excess ABG Hemoglobin Oxyhemoglobin Sodium Potassium Chloride 96.7 L Carbon Dioxide BUN 41 H Creatinine 1.5 H Glucose 145 H POC Glucose 182 H 115 H Lactic Acid Calcium Ionized Calcium Phosphorus 1.60 L D Magnesium 1.50 L Direct Bilirubin AST ALT Alkaline Phosphatase Lactate Dehydrogenase Troponin T C-Reactive Protein Total Protein Albumin Prealbumin Triglycerides Cholesterol LDL Cholesterol Direct HDL Cholesterol 25-OH Vitamin D Total PTH Intact Urine pH Urine WBC (Auto) Urine Creatinine Urine Total Protein Fluid Total Protein Vancomycin Trough Rheumatoid Factor Complement C4 Miscellaneous Test Crossmatch 11/03/16 11/03/16 11/03/16 11:53 17:45 23:37 WBC RBC Hgb Hct MCV MCH MCHC RDW Plt Count Lymph % (Auto) [place] % (Auto) Lymph # [place] # Baso # Seg Neutrophils % Seg Neuts % (Manual) Lymphocytes % (Manual) Monocytes % (Manual) Eosinophils % (Manual) Basophils % (Manual) Nucleated RBC % Seg Neutrophils # Seg Neutrophils # Man Lymphocytes # (Manual) Monocytes # (Manual) Eosinophils # (Manual) Basophils # (Manual) PT INR Fibrinogen dRVVT Confirm Interp Factor V Activity POC ABG pH POC ABG pCO2 POC ABG pO2 ABG pO2 ABG HCO3 ABG Base Excess ABG Hemoglobin Oxyhemoglobin Sodium Potassium Chloride Carbon Dioxide BUN Creatinine Glucose POC Glucose 131 H 134 H 113 H Lactic Acid Calcium Ionized Calcium Phosphorus Magnesium Direct Bilirubin AST ALT Alkaline Phosphatase Lactate Dehydrogenase Troponin T C-Reactive Protein Total Protein Albumin Prealbumin Triglycerides Cholesterol LDL Cholesterol Direct HDL Cholesterol 25-OH Vitamin D Total PTH Intact Urine pH Urine WBC (Auto) Urine Creatinine Urine Total Protein Fluid Total Protein Vancomycin Trough Rheumatoid Factor Complement C4 Miscellaneous Test Crossmatch 11/04/16 11/04/16 11/04/16 05:41 06:00 12:10 WBC RBC Hgb Hct MCV MCH MCHC RDW Plt Count Lymph % (Auto) [place] % (Auto) Lymph # [place] # Baso # Seg Neutrophils % Seg Neuts % (Manual) Lymphocytes % (Manual) Monocytes % (Manual) Eosinophils % (Manual) Basophils % (Manual) Nucleated RBC % Seg Neutrophils # Seg Neutrophils # Man Lymphocytes # (Manual) Monocytes # (Manual) Eosinophils # (Manual) Basophils # (Manual) PT INR Fibrinogen dRVVT Confirm Interp Factor V Activity POC ABG pH POC ABG pCO2 POC ABG pO2 ABG pO2 ABG HCO3 ABG Base Excess ABG Hemoglobin Oxyhemoglobin Sodium Potassium Chloride 96.7 L Carbon Dioxide BUN 52 H Creatinine 1.9 H Glucose 126 H POC Glucose 137 H 191 H Lactic Acid Calcium Ionized Calcium Phosphorus Magnesium Direct Bilirubin AST ALT Alkaline Phosphatase Lactate Dehydrogenase Troponin T C-Reactive Protein Total Protein Albumin Prealbumin Triglycerides Cholesterol LDL Cholesterol Direct HDL Cholesterol 25-OH Vitamin D Total PTH Intact Urine pH Urine WBC (Auto) Urine Creatinine Urine Total Protein Fluid Total Protein Vancomycin Trough Rheumatoid Factor Complement C4 Miscellaneous Test Crossmatch 11/04/16 11/05/16 11/05/16 22:57 03:10 05:10 WBC RBC Hgb Hct MCV MCH MCHC RDW Plt Count Lymph % (Auto) [place] % (Auto) Lymph # [place] # Baso # Seg Neutrophils % Seg Neuts % (Manual) Lymphocytes % (Manual) Monocytes % (Manual) Eosinophils % (Manual) Basophils % (Manual) Nucleated RBC % Seg Neutrophils # Seg Neutrophils # Man Lymphocytes # (Manual) Monocytes # (Manual) Eosinophils # (Manual) Basophils # (Manual) PT INR Fibrinogen dRVVT Confirm Interp Factor V Activity POC ABG pH POC ABG pCO2 POC ABG pO2 ABG pO2 ABG HCO3 ABG Base Excess ABG Hemoglobin Oxyhemoglobin Sodium 136 L Potassium Chloride 97.2 L Carbon Dioxide BUN 32 H Creatinine 1.3 H Glucose 123 H POC Glucose 125 H 108 H Lactic Acid Calcium 7.8 L Ionized Calcium Phosphorus Magnesium Direct Bilirubin AST ALT Alkaline Phosphatase Lactate Dehydrogenase Troponin T C-Reactive Protein Total Protein Albumin Prealbumin Triglycerides Cholesterol LDL Cholesterol Direct HDL Cholesterol 25-OH Vitamin D Total PTH Intact Urine pH Urine WBC (Auto) Urine Creatinine Urine Total Protein Fluid Total Protein Vancomycin Trough Rheumatoid Factor Complement C4 Miscellaneous Test Crossmatch 11/05/16 11/05/16 11/05/16 12:23 13:09 13:25 WBC RBC Hgb Hct MCV MCH MCHC RDW Plt Count Lymph % (Auto) [place] % (Auto) Lymph # [place] # Baso # Seg Neutrophils % Seg Neuts % (Manual) Lymphocytes % (Manual) Monocytes % (Manual) Eosinophils % (Manual) Basophils % (Manual) Nucleated RBC % Seg Neutrophils # Seg Neutrophils # Man Lymphocytes # (Manual) Monocytes # (Manual) Eosinophils # (Manual) Basophils # (Manual) PT INR Fibrinogen dRVVT Confirm Interp Factor V Activity POC ABG pH POC ABG pCO2 POC ABG pO2 ABG pO2 ABG HCO3 ABG Base Excess ABG Hemoglobin Oxyhemoglobin Sodium Potassium Chloride Carbon Dioxide BUN Creatinine Glucose POC Glucose 124 H Lactic Acid Calcium Ionized Calcium Phosphorus Magnesium Direct Bilirubin AST ALT Alkaline Phosphatase Lactate Dehydrogenase Troponin T C-Reactive Protein 11.40 H Total Protein Albumin Prealbumin Triglycerides Cholesterol LDL Cholesterol Direct HDL Cholesterol 25-OH Vitamin D Total PTH Intact Urine pH 9.0 H Urine WBC (Auto) Urine Creatinine Urine Total Protein Fluid Total Protein Vancomycin Trough Rheumatoid Factor Complement C4 Miscellaneous Test Crossmatch 11/05/16 11/05/16 11/05/16 13:25 17:54 23:42 WBC RBC Hgb Hct MCV MCH MCHC RDW Plt Count Lymph % (Auto) [place] % (Auto) Lymph # [place] # Baso # Seg Neutrophils % Seg Neuts % (Manual) Lymphocytes % (Manual) Monocytes % (Manual) Eosinophils % (Manual) Basophils % (Manual) Nucleated RBC % Seg Neutrophils # Seg Neutrophils # Man Lymphocytes # (Manual) Monocytes # (Manual) Eosinophils # (Manual) Basophils # (Manual) PT INR Fibrinogen dRVVT Confirm Interp Factor V Activity POC ABG pH POC ABG pCO2 POC ABG pO2 ABG pO2 ABG HCO3 ABG Base Excess ABG Hemoglobin Oxyhemoglobin Sodium Potassium Chloride Carbon Dioxide BUN Creatinine Glucose POC Glucose 114 H 134 H Lactic Acid Calcium Ionized Calcium Phosphorus Magnesium Direct Bilirubin AST ALT Alkaline Phosphatase Lactate Dehydrogenase Troponin T C-Reactive Protein Total Protein Albumin Prealbumin Triglycerides Cholesterol LDL Cholesterol Direct HDL Cholesterol 25-OH Vitamin D Total PTH Intact Urine pH Urine WBC (Auto) Urine Creatinine Urine Total Protein Fluid Total Protein Vancomycin Trough Rheumatoid Factor Complement C4 Miscellaneous Test Flexitest 1 H Crossmatch 11/06/16 11/06/16 11/06/16 04:56 06:25 06:25 WBC RBC 2.50 L Hgb 7.3 L Hct 22.5 L MCV MCH MCHC RDW 16.9 H Plt Count Lymph % (Auto) [place] % (Auto) 10.5 H Lymph # [place] # 1.1 H Baso # Seg Neutrophils % Seg Neuts % (Manual) Lymphocytes % (Manual) Monocytes % (Manual) Eosinophils % (Manual) Basophils % (Manual) Nucleated RBC % Seg Neutrophils # Seg Neutrophils # Man Lymphocytes # (Manual) Monocytes # (Manual) Eosinophils # (Manual) Basophils # (Manual) PT INR Fibrinogen dRVVT Confirm Interp Factor V Activity POC ABG pH POC ABG pCO2 POC ABG pO2 ABG pO2 ABG HCO3 ABG Base Excess ABG Hemoglobin Oxyhemoglobin Sodium Potassium 5.1 H Chloride 95.9 L Carbon Dioxide BUN 52 H Creatinine 1.8 H Glucose 117 H POC Glucose 120 H Lactic Acid Calcium Ionized Calcium Phosphorus Magnesium Direct Bilirubin AST 103 H ALT 77 H Alkaline Phosphatase 285 H Lactate Dehydrogenase Troponin T C-Reactive Protein Total Protein 6.2 L Albumin 1.8 L Prealbumin 0.180 L Triglycerides Cholesterol LDL Cholesterol Direct HDL Cholesterol 25-OH Vitamin D Total PTH Intact Urine pH Urine WBC (Auto) Urine Creatinine Urine Total Protein Fluid Total Protein Vancomycin Trough Rheumatoid Factor Complement C4 Miscellaneous Test Crossmatch 11/06/16 11/06/16 11/06/16 11:56 17:14 23:52 WBC RBC Hgb Hct MCV MCH MCHC RDW Plt Count Lymph % (Auto) [place] % (Auto) Lymph # [place] # Baso # Seg Neutrophils % Seg Neuts % (Manual) Lymphocytes % (Manual) Monocytes % (Manual) Eosinophils % (Manual) Basophils % (Manual) Nucleated RBC % Seg Neutrophils # Seg Neutrophils # Man Lymphocytes # (Manual) Monocytes # (Manual) Eosinophils # (Manual) Basophils # (Manual) PT INR Fibrinogen dRVVT Confirm Interp Factor V Activity POC ABG pH POC ABG pCO2 POC ABG pO2 ABG pO2 ABG HCO3 ABG Base Excess ABG Hemoglobin Oxyhemoglobin Sodium Potassium Chloride Carbon Dioxide BUN Creatinine Glucose POC Glucose 141 H 125 H 130 H Lactic Acid Calcium Ionized Calcium Phosphorus Magnesium Direct Bilirubin AST ALT Alkaline Phosphatase Lactate Dehydrogenase Troponin T C-Reactive Protein Total Protein Albumin Prealbumin Triglycerides Cholesterol LDL Cholesterol Direct HDL Cholesterol 25-OH Vitamin D Total PTH Intact Urine pH Urine WBC (Auto) Urine Creatinine Urine Total Protein Fluid Total Protein Vancomycin Trough Rheumatoid Factor Complement C4 Miscellaneous Test Crossmatch 11/07/16 11/07/16 11/07/16 06:30 06:30 09:37 WBC RBC 2.18 L Hgb 6.3 L Hct 19.7 L* MCV MCH MCHC RDW 16.8 H Plt Count Lymph % (Auto) [place] % (Auto) 10.0 H Lymph # [place] # 1.0 H Baso # Seg Neutrophils % Seg Neuts % (Manual) Lymphocytes % (Manual) Monocytes % (Manual) Eosinophils % (Manual) Basophils % (Manual) Nucleated RBC % Seg Neutrophils # Seg Neutrophils # Man Lymphocytes # (Manual) Monocytes # (Manual) Eosinophils # (Manual) Basophils # (Manual) PT INR Fibrinogen dRVVT Confirm Interp Factor V Activity POC ABG pH POC ABG pCO2 POC ABG pO2 ABG pO2 ABG HCO3 ABG Base Excess ABG Hemoglobin Oxyhemoglobin Sodium 135 L Potassium Chloride 95.6 L Carbon Dioxide BUN 70 H Creatinine 2.0 H Glucose 126 H POC Glucose Lactic Acid Calcium Ionized Calcium Phosphorus Magnesium Direct Bilirubin AST ALT Alkaline Phosphatase Lactate Dehydrogenase Troponin T C-Reactive Protein Total Protein Albumin Prealbumin Triglycerides Cholesterol LDL Cholesterol Direct HDL Cholesterol 25-OH Vitamin D Total PTH Intact Urine pH Urine WBC (Auto) Urine Creatinine Urine Total Protein Fluid Total Protein Vancomycin Trough Rheumatoid Factor Complement C4 Miscellaneous Test Crossmatch See Detail 11/07/16 11/07/16 11/07/16 12:52 18:51 21:26 WBC RBC Hgb Hct MCV MCH MCHC RDW Plt Count Lymph % (Auto) [place] % (Auto) Lymph # [place] # Baso # Seg Neutrophils % Seg Neuts % (Manual) Lymphocytes % (Manual) Monocytes % (Manual) Eosinophils % (Manual) Basophils % (Manual) Nucleated RBC % Seg Neutrophils # Seg Neutrophils # Man Lymphocytes # (Manual) Monocytes # (Manual) Eosinophils # (Manual) Basophils # (Manual) PT INR Fibrinogen dRVVT Confirm Interp Factor V Activity POC ABG pH 7.523 H POC ABG pCO2 34.6 L POC ABG pO2 53 L ABG pO2 ABG HCO3 ABG Base Excess ABG Hemoglobin Oxyhemoglobin Sodium Potassium Chloride Carbon Dioxide BUN Creatinine Glucose POC Glucose 142 H 155 H Lactic Acid Calcium Ionized Calcium Phosphorus Magnesium Direct Bilirubin AST ALT Alkaline Phosphatase Lactate Dehydrogenase Troponin T C-Reactive Protein Total Protein Albumin Prealbumin Triglycerides Cholesterol LDL Cholesterol Direct HDL Cholesterol 25-OH Vitamin D Total PTH Intact Urine pH Urine WBC (Auto) Urine Creatinine Urine Total Protein Fluid Total Protein Vancomycin Trough Rheumatoid Factor Complement C4 Miscellaneous Test Crossmatch 11/07/16 11/08/16 11/08/16 21:34 13:03 23:37 WBC RBC 2.63 L Hgb 7.7 L Hct 22.7 L MCV MCH MCHC RDW 17.0 H Plt Count Lymph % (Auto) [place] % (Auto) Lymph # [place] # Baso # Seg Neutrophils % Seg Neuts % (Manual) Lymphocytes % (Manual) Monocytes % (Manual) Eosinophils % (Manual) Basophils % (Manual) Nucleated RBC % Seg Neutrophils # Seg Neutrophils # Man Lymphocytes # (Manual) Monocytes # (Manual) Eosinophils # (Manual) Basophils # (Manual) PT INR Fibrinogen dRVVT Confirm Interp Factor V Activity POC ABG pH 7.478 H POC ABG pCO2 34.0 L POC ABG pO2 50 L ABG pO2 ABG HCO3 ABG Base Excess ABG Hemoglobin Oxyhemoglobin Sodium Potassium Chloride Carbon Dioxide BUN Creatinine Glucose POC Glucose 113 H Lactic Acid Calcium Ionized Calcium Phosphorus Magnesium Direct Bilirubin AST ALT Alkaline Phosphatase Lactate Dehydrogenase Troponin T C-Reactive Protein Total Protein Albumin Prealbumin Triglycerides Cholesterol LDL Cholesterol Direct HDL Cholesterol 25-OH Vitamin D Total PTH Intact Urine pH Urine WBC (Auto) Urine Creatinine Urine Total Protein Fluid Total Protein Vancomycin Trough Rheumatoid Factor Complement C4 Miscellaneous Test Crossmatch 11/09/16 11/09/16 11/09/16 04:35 10:15 18:21 WBC RBC 2.68 L Hgb 7.8 L Hct 23.3 L MCV MCH MCHC RDW 17.0 H Plt Count Lymph % (Auto) [place] % (Auto) 12.1 H Lymph # [place] # 1.1 H Baso # Seg Neutrophils % Seg Neuts % (Manual) Lymphocytes % (Manual) Monocytes % (Manual) Eosinophils % (Manual) Basophils % (Manual) Nucleated RBC % Seg Neutrophils # Seg Neutrophils # Man Lymphocytes # (Manual) Monocytes # (Manual) Eosinophils # (Manual) Basophils # (Manual) PT INR Fibrinogen dRVVT Confirm Interp Factor V Activity POC ABG pH POC ABG pCO2 POC ABG pO2 ABG pO2 ABG HCO3 ABG Base Excess ABG Hemoglobin Oxyhemoglobin Sodium Potassium Chloride Carbon Dioxide BUN 51 H Creatinine 1.8 H Glucose POC Glucose 60 L Lactic Acid Calcium 8.3 L Ionized Calcium Phosphorus Magnesium Direct Bilirubin AST ALT Alkaline Phosphatase Lactate Dehydrogenase Troponin T C-Reactive Protein Total Protein Albumin Prealbumin Triglycerides Cholesterol LDL Cholesterol Direct HDL Cholesterol 25-OH Vitamin D Total PTH Intact Urine pH Urine WBC (Auto) Urine Creatinine Urine Total Protein Fluid Total Protein Vancomycin Trough Rheumatoid Factor Complement C4 Miscellaneous Test Crossmatch 11/09/16 11/10/16 11/10/16 18:55 07:00 11:51 WBC RBC Hgb Hct MCV MCH MCHC RDW Plt Count Lymph % (Auto) [place] % (Auto) Lymph # [place] # Baso # Seg Neutrophils % Seg Neuts % (Manual) Lymphocytes % (Manual) Monocytes % (Manual) Eosinophils % (Manual) Basophils % (Manual) Nucleated RBC % Seg Neutrophils # Seg Neutrophils # Man Lymphocytes # (Manual) Monocytes # (Manual) Eosinophils # (Manual) Basophils # (Manual) PT INR Fibrinogen dRVVT Confirm Interp Factor V Activity POC ABG pH POC ABG pCO2 POC ABG pO2 ABG pO2 ABG HCO3 ABG Base Excess ABG Hemoglobin Oxyhemoglobin Sodium Potassium 3.0 L D Chloride 97.4 L Carbon Dioxide BUN 28 H Creatinine 1.3 H Glucose POC Glucose 68 L 120 H Lactic Acid Calcium 7.8 L Ionized Calcium Phosphorus Magnesium Direct Bilirubin AST ALT Alkaline Phosphatase Lactate Dehydrogenase Troponin T C-Reactive Protein Total Protein Albumin Prealbumin Triglycerides Cholesterol LDL Cholesterol Direct HDL Cholesterol 25-OH Vitamin D Total PTH Intact Urine pH Urine WBC (Auto) Urine Creatinine Urine Total Protein Fluid Total Protein Vancomycin Trough Rheumatoid Factor Complement C4 Miscellaneous Test Crossmatch 11/10/16 11/11/16 11/11/16 14:20 06:59 06:59 WBC RBC 2.81 L Hgb 8.1 L Hct 24.4 L MCV MCH MCHC RDW 16.4 H Plt Count Lymph % (Auto) [place] % (Auto) 10.8 H Lymph # [place] # 1.0 H Baso # Seg Neutrophils % Seg Neuts % (Manual) Lymphocytes % (Manual) Monocytes % (Manual) Eosinophils % (Manual) Basophils % (Manual) Nucleated RBC % Seg Neutrophils # Seg Neutrophils # Man Lymphocytes # (Manual) Monocytes # (Manual) Eosinophils # (Manual) Basophils # (Manual) PT INR Fibrinogen dRVVT Confirm Interp Factor V Activity POC ABG pH POC ABG pCO2 POC ABG pO2 ABG pO2 ABG HCO3 ABG Base Excess ABG Hemoglobin Oxyhemoglobin Sodium Potassium Chloride Carbon Dioxide BUN Creatinine Glucose POC Glucose Lactic Acid Calcium Ionized Calcium Phosphorus Magnesium Direct Bilirubin AST ALT Alkaline Phosphatase Lactate Dehydrogenase 196 H Troponin T C-Reactive Protein Total Protein 6.1 L Albumin Prealbumin Triglycerides Cholesterol LDL Cholesterol Direct HDL Cholesterol 25-OH Vitamin D Total PTH Intact Urine pH Urine WBC (Auto) Urine Creatinine Urine Total Protein Fluid Total Protein < 3.0 L Vancomycin Trough Rheumatoid Factor Complement C4 Miscellaneous Test Crossmatch 11/11/16 11/11/16 11/12/16 06:59 09:50 04:00 WBC RBC Hgb Hct MCV MCH MCHC RDW Plt Count Lymph % (Auto) [place] % (Auto) Lymph # [place] # Baso # Seg Neutrophils % Seg Neuts % (Manual) Lymphocytes % (Manual) Monocytes % (Manual) Eosinophils % (Manual) Basophils % (Manual) Nucleated RBC % Seg Neutrophils # Seg Neutrophils # Man Lymphocytes # (Manual) Monocytes # (Manual) Eosinophils # (Manual) Basophils # (Manual) PT INR 1.18 H Fibrinogen dRVVT Confirm Interp Factor V Activity POC ABG pH POC ABG pCO2 POC ABG pO2 ABG pO2 ABG HCO3 ABG Base Excess ABG Hemoglobin Oxyhemoglobin Sodium 136 L 133 L Potassium Chloride 96.1 L 94.8 L Carbon Dioxide 21 L BUN 37 H 42 H Creatinine 1.8 H 2.0 H Glucose POC Glucose Lactic Acid Calcium Ionized Calcium Phosphorus Magnesium Direct Bilirubin AST ALT Alkaline Phosphatase Lactate Dehydrogenase Troponin T C-Reactive Protein Total Protein Albumin Prealbumin Triglycerides Cholesterol LDL Cholesterol Direct HDL Cholesterol 25-OH Vitamin D Total PTH Intact Urine pH Urine WBC (Auto) Urine Creatinine Urine Total Protein Fluid Total Protein Vancomycin Trough Rheumatoid Factor Complement C4 Miscellaneous Test Crossmatch 11/12/16 11/12/16 11/13/16 04:00 23:55 05:53 WBC RBC Hgb 8.9 L Hct 27.2 L MCV MCH MCHC RDW Plt Count Lymph % (Auto) [place] % (Auto) Lymph # [place] # Baso # Seg Neutrophils % Seg Neuts % (Manual) Lymphocytes % (Manual) Monocytes % (Manual) Eosinophils % (Manual) Basophils % (Manual) Nucleated RBC % Seg Neutrophils # Seg Neutrophils # Man Lymphocytes # (Manual) Monocytes # (Manual) Eosinophils # (Manual) Basophils # (Manual) PT INR Fibrinogen dRVVT Confirm Interp Factor V Activity POC ABG pH POC ABG pCO2 POC ABG pO2 ABG pO2 ABG HCO3 ABG Base Excess ABG Hemoglobin Oxyhemoglobin Sodium Potassium Chloride Carbon Dioxide BUN Creatinine Glucose POC Glucose 132 H 120 H Lactic Acid Calcium Ionized Calcium Phosphorus Magnesium Direct Bilirubin AST ALT Alkaline Phosphatase Lactate Dehydrogenase Troponin T C-Reactive Protein Total Protein Albumin Prealbumin Triglycerides Cholesterol LDL Cholesterol Direct HDL Cholesterol 25-OH Vitamin D Total PTH Intact Urine pH Urine WBC (Auto) Urine Creatinine Urine Total Protein Fluid Total Protein Vancomycin Trough Rheumatoid Factor Complement C4 Miscellaneous Test Crossmatch 11/13/16 11/13/16 11/13/16 11:43 17:09 23:41 WBC RBC Hgb Hct MCV MCH MCHC RDW Plt Count Lymph % (Auto) [place] % (Auto) Lymph # [place] # Baso # Seg Neutrophils % Seg Neuts % (Manual) Lymphocytes % (Manual) Monocytes % (Manual) Eosinophils % (Manual) Basophils % (Manual) Nucleated RBC % Seg Neutrophils # Seg Neutrophils # Man Lymphocytes # (Manual) Monocytes # (Manual) Eosinophils # (Manual) Basophils # (Manual) PT INR Fibrinogen dRVVT Confirm Interp Factor V Activity POC ABG pH POC ABG pCO2 POC ABG pO2 ABG pO2 ABG HCO3 ABG Base Excess ABG Hemoglobin Oxyhemoglobin Sodium Potassium Chloride Carbon Dioxide BUN Creatinine Glucose POC Glucose 114 H 113 H 108 H Lactic Acid Calcium Ionized Calcium Phosphorus Magnesium Direct Bilirubin AST ALT Alkaline Phosphatase Lactate Dehydrogenase Troponin T C-Reactive Protein Total Protein Albumin Prealbumin Triglycerides Cholesterol LDL Cholesterol Direct HDL Cholesterol 25-OH Vitamin D Total PTH Intact Urine pH Urine WBC (Auto) Urine Creatinine Urine Total Protein Fluid Total Protein Vancomycin Trough Rheumatoid Factor Complement C4 Miscellaneous Test Crossmatch 11/13/16 11/15/16 11/15/16 Unknown 00:37 03:30 WBC 11.2 H RBC 2.72 L Hgb 7.6 L Hct 23.4 L MCV MCH MCHC RDW 16.5 H Plt Count Lymph % (Auto) [place] % (Auto) Lymph # [place] # Baso # Seg Neutrophils % Seg Neuts % (Manual) Lymphocytes % (Manual) Monocytes % (Manual) Eosinophils % (Manual) Basophils % (Manual) Nucleated RBC % Seg Neutrophils # Seg Neutrophils # Man Lymphocytes # (Manual) Monocytes # (Manual) Eosinophils # (Manual) Basophils # (Manual) PT INR Fibrinogen dRVVT Confirm Interp Factor V Activity POC ABG pH POC ABG pCO2 POC ABG pO2 ABG pO2 ABG HCO3 ABG Base Excess ABG Hemoglobin Oxyhemoglobin Sodium 135 L Potassium Chloride 95.2 L Carbon Dioxide BUN 52 H Creatinine 2.2 H Glucose POC Glucose 108 H Lactic Acid Calcium Ionized Calcium Phosphorus Magnesium Direct Bilirubin AST ALT Alkaline Phosphatase Lactate Dehydrogenase Troponin T C-Reactive Protein Total Protein Albumin Prealbumin Triglycerides Cholesterol LDL Cholesterol Direct HDL Cholesterol 25-OH Vitamin D Total PTH Intact Urine pH Urine WBC (Auto) Urine Creatinine Urine Total Protein Fluid Total Protein Vancomycin Trough Rheumatoid Factor Complement C4 Miscellaneous Test Crossmatch 11/15/16 11/15/16 11/15/16 03:30 05:04 11:50 WBC RBC Hgb Hct MCV MCH MCHC RDW Plt Count Lymph % (Auto) [place] % (Auto) Lymph # [place] # Baso # Seg Neutrophils % Seg Neuts % (Manual) Lymphocytes % (Manual) Monocytes % (Manual) Eosinophils % (Manual) Basophils % (Manual) Nucleated RBC % Seg Neutrophils # Seg Neutrophils # Man Lymphocytes # (Manual) Monocytes # (Manual) Eosinophils # (Manual) Basophils # (Manual) PT INR Fibrinogen dRVVT Confirm Interp Factor V Activity POC ABG pH POC ABG pCO2 POC ABG pO2 ABG pO2 ABG HCO3 ABG Base Excess ABG Hemoglobin Oxyhemoglobin Sodium Potassium 3.4 L Chloride Carbon Dioxide BUN 25 H Creatinine 1.5 H Glucose 103 H POC Glucose 121 H 144 H Lactic Acid Calcium Ionized Calcium Phosphorus Magnesium Direct Bilirubin AST ALT Alkaline Phosphatase Lactate Dehydrogenase Troponin T C-Reactive Protein Total Protein Albumin Prealbumin Triglycerides Cholesterol LDL Cholesterol Direct HDL Cholesterol 25-OH Vitamin D Total PTH Intact Urine pH Urine WBC (Auto) Urine Creatinine Urine Total Protein Fluid Total Protein Vancomycin Trough Rheumatoid Factor Complement C4 Miscellaneous Test Crossmatch 11/15/16 11/15/16 11/16/16 21:28 23:20 11:44 WBC RBC Hgb Hct MCV MCH MCHC RDW Plt Count Lymph % (Auto) [place] % (Auto) Lymph # [place] # Baso # Seg Neutrophils % Seg Neuts % (Manual) Lymphocytes % (Manual) Monocytes % (Manual) Eosinophils % (Manual) Basophils % (Manual) Nucleated RBC % Seg Neutrophils # Seg Neutrophils # Man Lymphocytes # (Manual) Monocytes # (Manual) Eosinophils # (Manual) Basophils # (Manual) PT INR Fibrinogen dRVVT Confirm Interp Factor V Activity POC ABG pH 7.462 H POC ABG pCO2 POC ABG pO2 71 L ABG pO2 ABG HCO3 ABG Base Excess ABG Hemoglobin Oxyhemoglobin Sodium Potassium Chloride Carbon Dioxide BUN Creatinine Glucose POC Glucose 116 H 133 H Lactic Acid Calcium Ionized Calcium Phosphorus Magnesium Direct Bilirubin AST ALT Alkaline Phosphatase Lactate Dehydrogenase Troponin T C-Reactive Protein Total Protein Albumin Prealbumin Triglycerides Cholesterol LDL Cholesterol Direct HDL Cholesterol 25-OH Vitamin D Total PTH Intact Urine pH Urine WBC (Auto) Urine Creatinine Urine Total Protein Fluid Total Protein Vancomycin Trough Rheumatoid Factor Complement C4 Miscellaneous Test Crossmatch 11/16/16 11/16/16 11/16/16 12:20 17:05 23:35 WBC 11.7 H RBC 2.73 L Hgb 7.6 L Hct 23.7 L MCV MCH MCHC RDW 16.6 H Plt Count Lymph % (Auto) [place] % (Auto) Lymph # [place] # Baso # Seg Neutrophils % Seg Neuts % (Manual) Lymphocytes % (Manual) Monocytes % (Manual) Eosinophils % (Manual) Basophils % (Manual) Nucleated RBC % Seg Neutrophils # Seg Neutrophils # Man Lymphocytes # (Manual) Monocytes # (Manual) Eosinophils # (Manual) Basophils # (Manual) PT INR Fibrinogen dRVVT Confirm Interp Factor V Activity POC ABG pH POC ABG pCO2 POC ABG pO2 ABG pO2 ABG HCO3 ABG Base Excess ABG Hemoglobin Oxyhemoglobin Sodium Potassium Chloride Carbon Dioxide BUN Creatinine Glucose POC Glucose 154 H 125 H Lactic Acid Calcium Ionized Calcium Phosphorus Magnesium Direct Bilirubin AST ALT Alkaline Phosphatase Lactate Dehydrogenase Troponin T C-Reactive Protein Total Protein Albumin Prealbumin Triglycerides Cholesterol LDL Cholesterol Direct HDL Cholesterol 25-OH Vitamin D Total PTH Intact Urine pH Urine WBC (Auto) Urine Creatinine Urine Total Protein Fluid Total Protein Vancomycin Trough Rheumatoid Factor Complement C4 Miscellaneous Test Crossmatch 11/17/16 11/17/16 11/17/16 03:20 03:20 03:20 WBC RBC 2.55 L Hgb 7.3 L Hct 21.9 L MCV MCH MCHC RDW 16.6 H Plt Count Lymph % (Auto) [place] % (Auto) 11.5 H Lymph # [place] # 1.1 H Baso # Seg Neutrophils % Seg Neuts % (Manual) Lymphocytes % (Manual) Monocytes % (Manual) Eosinophils % (Manual) Basophils % (Manual) Nucleated RBC % Seg Neutrophils # Seg Neutrophils # Man Lymphocytes # (Manual) Monocytes # (Manual) Eosinophils # (Manual) Basophils # (Manual) PT 16.8 H INR 1.37 H Fibrinogen dRVVT Confirm Interp Factor V Activity POC ABG pH POC ABG pCO2 POC ABG pO2 ABG pO2 ABG HCO3 ABG Base Excess ABG Hemoglobin Oxyhemoglobin Sodium Potassium 3.5 L Chloride Carbon Dioxide BUN 21 H Creatinine Glucose POC Glucose Lactic Acid Calcium 7.9 L Ionized Calcium Phosphorus Magnesium Direct Bilirubin AST ALT Alkaline Phosphatase Lactate Dehydrogenase Troponin T C-Reactive Protein Total Protein Albumin Prealbumin Triglycerides Cholesterol LDL Cholesterol Direct HDL Cholesterol 25-OH Vitamin D Total PTH Intact Urine pH Urine WBC (Auto) Urine Creatinine Urine Total Protein Fluid Total Protein Vancomycin Trough Rheumatoid Factor Complement C4 Miscellaneous Test Crossmatch 11/17/16 11/17/16 11/17/16 06:34 11:21 21:22 WBC RBC Hgb Hct MCV MCH MCHC RDW Plt Count Lymph % (Auto) [place] % (Auto) Lymph # [place] # Baso # Seg Neutrophils % Seg Neuts % (Manual) Lymphocytes % (Manual) Monocytes % (Manual) Eosinophils % (Manual) Basophils % (Manual) Nucleated RBC % Seg Neutrophils # Seg Neutrophils # Man Lymphocytes # (Manual) Monocytes # (Manual) Eosinophils # (Manual) Basophils # (Manual) PT INR Fibrinogen dRVVT Confirm Interp Factor V Activity POC ABG pH 7.467 H POC ABG pCO2 POC ABG pO2 73 L ABG pO2 ABG HCO3 ABG Base Excess ABG Hemoglobin Oxyhemoglobin Sodium Potassium Chloride Carbon Dioxide BUN Creatinine Glucose POC Glucose 121 H 119 H Lactic Acid Calcium Ionized Calcium Phosphorus Magnesium Direct Bilirubin AST ALT Alkaline Phosphatase Lactate Dehydrogenase Troponin T C-Reactive Protein Total Protein Albumin Prealbumin Triglycerides Cholesterol LDL Cholesterol Direct HDL Cholesterol 25-OH Vitamin D Total PTH Intact Urine pH Urine WBC (Auto) Urine Creatinine Urine Total Protein Fluid Total Protein Vancomycin Trough Rheumatoid Factor Complement C4 Miscellaneous Test Crossmatch 11/18/16 11/18/16 11/19/16 12:16 17:19 00:00 WBC RBC Hgb Hct MCV MCH MCHC RDW Plt Count Lymph % (Auto) [place] % (Auto) Lymph # [place] # Baso # Seg Neutrophils % Seg Neuts % (Manual) Lymphocytes % (Manual) Monocytes % (Manual) Eosinophils % (Manual) Basophils % (Manual) Nucleated RBC % Seg Neutrophils # Seg Neutrophils # Man Lymphocytes # (Manual) Monocytes # (Manual) Eosinophils # (Manual) Basophils # (Manual) PT INR Fibrinogen dRVVT Confirm Interp Factor V Activity POC ABG pH POC ABG pCO2 POC ABG pO2 ABG pO2 ABG HCO3 ABG Base Excess ABG Hemoglobin Oxyhemoglobin Sodium Potassium Chloride Carbon Dioxide BUN Creatinine Glucose POC Glucose 124 H 162 H 139 H Lactic Acid Calcium Ionized Calcium Phosphorus Magnesium Direct Bilirubin AST ALT Alkaline Phosphatase Lactate Dehydrogenase Troponin T C-Reactive Protein Total Protein Albumin Prealbumin Triglycerides Cholesterol LDL Cholesterol Direct HDL Cholesterol 25-OH Vitamin D Total PTH Intact Urine pH Urine WBC (Auto) Urine Creatinine Urine Total Protein Fluid Total Protein Vancomycin Trough Rheumatoid Factor Complement C4 Miscellaneous Test Crossmatch 11/19/16 11/19/16 11/20/16 05:00 12:43 00:40 WBC RBC Hgb Hct MCV MCH MCHC RDW Plt Count Lymph % (Auto) [place] % (Auto) Lymph # [place] # Baso # Seg Neutrophils % Seg Neuts % (Manual) Lymphocytes % (Manual) Monocytes % (Manual) Eosinophils % (Manual) Basophils % (Manual) Nucleated RBC % Seg Neutrophils # Seg Neutrophils # Man Lymphocytes # (Manual) Monocytes # (Manual) Eosinophils # (Manual) Basophils # (Manual) PT INR Fibrinogen dRVVT Confirm Interp Factor V Activity POC ABG pH POC ABG pCO2 POC ABG pO2 ABG pO2 ABG HCO3 ABG Base Excess ABG Hemoglobin Oxyhemoglobin Sodium Potassium Chloride Carbon Dioxide BUN Creatinine Glucose POC Glucose 110 H 125 H 136 H Lactic Acid Calcium Ionized Calcium Phosphorus Magnesium Direct Bilirubin AST ALT Alkaline Phosphatase Lactate Dehydrogenase Troponin T C-Reactive Protein Total Protein Albumin Prealbumin Triglycerides Cholesterol LDL Cholesterol Direct HDL Cholesterol 25-OH Vitamin D Total PTH Intact Urine pH Urine WBC (Auto) Urine Creatinine Urine Total Protein Fluid Total Protein Vancomycin Trough Rheumatoid Factor Complement C4 Miscellaneous Test Crossmatch 11/20/16 11/20/16 11/20/16 05:00 05:00 05:51 WBC 13.1 H RBC 2.74 L Hgb 7.7 L Hct 23.6 L MCV MCH MCHC RDW 16.9 H Plt Count Lymph % (Auto) [place] % (Auto) 10.8 H Lymph # [place] # 1.4 H Baso # Seg Neutrophils % Seg Neuts % (Manual) Lymphocytes % (Manual) Monocytes % (Manual) Eosinophils % (Manual) Basophils % (Manual) Nucleated RBC % Seg Neutrophils # 7.9 H Seg Neutrophils # Man Lymphocytes # (Manual) Monocytes # (Manual) Eosinophils # (Manual) Basophils # (Manual) PT INR Fibrinogen dRVVT Confirm Interp Factor V Activity POC ABG pH POC ABG pCO2 POC ABG pO2 ABG pO2 ABG HCO3 ABG Base Excess ABG Hemoglobin Oxyhemoglobin Sodium Potassium Chloride Carbon Dioxide BUN 31 H Creatinine 1.8 H Glucose 129 H POC Glucose 133 H Lactic Acid Calcium Ionized Calcium Phosphorus Magnesium Direct Bilirubin AST ALT Alkaline Phosphatase Lactate Dehydrogenase Troponin T C-Reactive Protein Total Protein Albumin Prealbumin Triglycerides Cholesterol LDL Cholesterol Direct HDL Cholesterol 25-OH Vitamin D Total PTH Intact Urine pH Urine WBC (Auto) Urine Creatinine Urine Total Protein Fluid Total Protein Vancomycin Trough Rheumatoid Factor Complement C4 Miscellaneous Test Crossmatch 11/20/16 11/20/16 11/21/16 12:40 18:10 01:20 WBC RBC Hgb Hct MCV MCH MCHC RDW Plt Count Lymph % (Auto) [place] % (Auto) Lymph # [place] # Baso # Seg Neutrophils % Seg Neuts % (Manual) Lymphocytes % (Manual) Monocytes % (Manual) Eosinophils % (Manual) Basophils % (Manual) Nucleated RBC % Seg Neutrophils # Seg Neutrophils # Man Lymphocytes # (Manual) Monocytes # (Manual) Eosinophils # (Manual) Basophils # (Manual) PT INR Fibrinogen dRVVT Confirm Interp Factor V Activity POC ABG pH POC ABG pCO2 POC ABG pO2 ABG pO2 ABG HCO3 ABG Base Excess ABG Hemoglobin Oxyhemoglobin Sodium Potassium Chloride Carbon Dioxide BUN Creatinine Glucose POC Glucose 134 H 138 H 136 H Lactic Acid Calcium Ionized Calcium Phosphorus Magnesium Direct Bilirubin AST ALT Alkaline Phosphatase Lactate Dehydrogenase Troponin T C-Reactive Protein Total Protein Albumin Prealbumin Triglycerides Cholesterol LDL Cholesterol Direct HDL Cholesterol 25-OH Vitamin D Total PTH Intact Urine pH Urine WBC (Auto) Urine Creatinine Urine Total Protein Fluid Total Protein Vancomycin Trough Rheumatoid Factor Complement C4 Miscellaneous Test Crossmatch 11/21/16 11/21/16 11/21/16 07:04 07:45 07:45 WBC 22.0 H RBC 2.91 L Hgb 8.2 L Hct 25.4 L MCV MCH MCHC RDW 17.1 H Plt Count Lymph % (Auto) [place] % (Auto) Lymph # [place] # Baso # Seg Neutrophils % Seg Neuts % (Manual) Lymphocytes % (Manual) 8.0 L Monocytes % (Manual) Eosinophils % (Manual) Basophils % (Manual) Nucleated RBC % Seg Neutrophils # Seg Neutrophils # Man 14.7 H Lymphocytes # (Manual) Monocytes # (Manual) 1.1 H Eosinophils # (Manual) Basophils # (Manual) PT INR Fibrinogen dRVVT Confirm Interp Factor V Activity POC ABG pH POC ABG pCO2 POC ABG pO2 ABG pO2 ABG HCO3 ABG Base Excess ABG Hemoglobin Oxyhemoglobin Sodium Potassium Chloride Carbon Dioxide BUN 42 H Creatinine 2.0 H Glucose POC Glucose 108 H Lactic Acid Calcium Ionized Calcium Phosphorus Magnesium Direct Bilirubin AST ALT Alkaline Phosphatase Lactate Dehydrogenase Troponin T C-Reactive Protein Total Protein Albumin Prealbumin Triglycerides Cholesterol LDL Cholesterol Direct HDL Cholesterol 25-OH Vitamin D Total PTH Intact Urine pH Urine WBC (Auto) Urine Creatinine Urine Total Protein Fluid Total Protein Vancomycin Trough Rheumatoid Factor Complement C4 Miscellaneous Test Crossmatch 11/21/16 11/21/16 11/21/16 08:38 10:09 11:20 WBC RBC Hgb Hct MCV MCH MCHC RDW Plt Count Lymph % (Auto) [place] % (Auto) Lymph # [place] # Baso # Seg Neutrophils % Seg Neuts % (Manual) Lymphocytes % (Manual) Monocytes % (Manual) Eosinophils % (Manual) Basophils % (Manual) Nucleated RBC % Seg Neutrophils # Seg Neutrophils # Man Lymphocytes # (Manual) Monocytes # (Manual) Eosinophils # (Manual) Basophils # (Manual) PT INR Fibrinogen dRVVT Confirm Interp Factor V Activity POC ABG pH 7.346 L POC ABG pCO2 34.4 L POC ABG pO2 314 H ABG pO2 ABG HCO3 ABG Base Excess ABG Hemoglobin Oxyhemoglobin Sodium Potassium Chloride Carbon Dioxide BUN Creatinine Glucose POC Glucose 195 H 153 H Lactic Acid Calcium Ionized Calcium Phosphorus Magnesium Direct Bilirubin AST ALT Alkaline Phosphatase Lactate Dehydrogenase Troponin T C-Reactive Protein Total Protein Albumin Prealbumin Triglycerides Cholesterol LDL Cholesterol Direct HDL Cholesterol 25-OH Vitamin D Total PTH Intact Urine pH Urine WBC (Auto) Urine Creatinine Urine Total Protein Fluid Total Protein Vancomycin Trough Rheumatoid Factor Complement C4 Miscellaneous Test Crossmatch 11/21/16 11/22/16 11/22/16 23:37 04:48 05:00 WBC 29.7 H RBC 2.73 L Hgb 7.5 L Hct 24.2 L MCV MCH 27 L MCHC RDW 17.4 H Plt Count Lymph % (Auto) [place] % (Auto) Lymph # [place] # Baso # Seg Neutrophils % Seg Neuts % (Manual) Lymphocytes % (Manual) 7.0 L Monocytes % (Manual) Eosinophils % (Manual) Basophils % (Manual) Nucleated RBC % Seg Neutrophils # Seg Neutrophils # Man 15.4 H Lymphocytes # (Manual) Monocytes # (Manual) Eosinophils # (Manual) Basophils # (Manual) PT INR Fibrinogen dRVVT Confirm Interp Factor V Activity POC ABG pH POC ABG pCO2 24.6 L POC ABG pO2 189 H ABG pO2 ABG HCO3 ABG Base Excess ABG Hemoglobin Oxyhemoglobin Sodium Potassium Chloride Carbon Dioxide BUN Creatinine Glucose POC Glucose 65 L Lactic Acid Calcium Ionized Calcium Phosphorus Magnesium Direct Bilirubin AST ALT Alkaline Phosphatase Lactate Dehydrogenase Troponin T C-Reactive Protein Total Protein Albumin Prealbumin Triglycerides Cholesterol LDL Cholesterol Direct HDL Cholesterol 25-OH Vitamin D Total PTH Intact Urine pH Urine WBC (Auto) Urine Creatinine Urine Total Protein Fluid Total Protein Vancomycin Trough Rheumatoid Factor Complement C4 Miscellaneous Test Crossmatch 11/22/16 11/23/16 11/23/16 05:00 03:44 04:06 WBC RBC 2.52 L Hgb 7.2 L Hct 21.5 L MCV MCH MCHC RDW 17.1 H Plt Count Lymph % (Auto) [place] % (Auto) 12.4 H Lymph # [place] # 1.4 H Baso # Seg Neutrophils % Seg Neuts % (Manual) Lymphocytes % (Manual) Monocytes % (Manual) Eosinophils % (Manual) Basophils % (Manual) Nucleated RBC % Seg Neutrophils # Seg Neutrophils # Man Lymphocytes # (Manual) Monocytes # (Manual) Eosinophils # (Manual) Basophils # (Manual) PT INR Fibrinogen dRVVT Confirm Interp Factor V Activity POC ABG pH 7.493 H POC ABG pCO2 29.5 L POC ABG pO2 49 L ABG pO2 ABG HCO3 ABG Base Excess ABG Hemoglobin Oxyhemoglobin Sodium 134 L Potassium Chloride 95.9 L Carbon Dioxide 14 L D BUN 51 H Creatinine 2.6 H Glucose POC Glucose Lactic Acid Calcium Ionized Calcium Phosphorus Magnesium Direct Bilirubin AST ALT Alkaline Phosphatase Lactate Dehydrogenase Troponin T C-Reactive Protein Total Protein Albumin Prealbumin Triglycerides Cholesterol LDL Cholesterol Direct HDL Cholesterol 25-OH Vitamin D Total PTH Intact Urine pH Urine WBC (Auto) Urine Creatinine Urine Total Protein Fluid Total Protein Vancomycin Trough Rheumatoid Factor Complement C4 Miscellaneous Test Crossmatch 11/23/16 11/23/16 11/24/16 04:06 11:29 06:39 WBC RBC Hgb Hct MCV MCH MCHC RDW Plt Count Lymph % (Auto) [place] % (Auto) Lymph # [place] # Baso # Seg Neutrophils % Seg Neuts % (Manual) Lymphocytes % (Manual) Monocytes % (Manual) Eosinophils % (Manual) Basophils % (Manual) Nucleated RBC % Seg Neutrophils # Seg Neutrophils # Man Lymphocytes # (Manual) Monocytes # (Manual) Eosinophils # (Manual) Basophils # (Manual) PT INR Fibrinogen dRVVT Confirm Interp Factor V Activity POC ABG pH POC ABG pCO2 POC ABG pO2 ABG pO2 ABG HCO3 ABG Base Excess ABG Hemoglobin Oxyhemoglobin Sodium 136 L Potassium Chloride 95.2 L Carbon Dioxide BUN 60 H Creatinine 2.9 H Glucose POC Glucose 69 L 305 H Lactic Acid Calcium Ionized Calcium Phosphorus Magnesium 1.60 L Direct Bilirubin AST ALT Alkaline Phosphatase Lactate Dehydrogenase Troponin T C-Reactive Protein Total Protein Albumin Prealbumin Triglycerides Cholesterol LDL Cholesterol Direct HDL Cholesterol 25-OH Vitamin D Total PTH Intact Urine pH Urine WBC (Auto) Urine Creatinine Urine Total Protein Fluid Total Protein Vancomycin Trough Rheumatoid Factor Complement C4 Miscellaneous Test Crossmatch 11/24/16 11/24/16 11/24/16 06:43 08:08 08:08 WBC 11.2 H RBC 2.47 L Hgb 6.8 L Hct 20.6 L MCV MCH MCHC RDW 17.0 H Plt Count Lymph % (Auto) [place] % (Auto) 10.3 H Lymph # [place] # 1.2 H Baso # Seg Neutrophils % Seg Neuts % (Manual) Lymphocytes % (Manual) Monocytes % (Manual) Eosinophils % (Manual) Basophils % (Manual) Nucleated RBC % Seg Neutrophils # Seg Neutrophils # Man Lymphocytes # (Manual) Monocytes # (Manual) Eosinophils # (Manual) Basophils # (Manual) PT INR Fibrinogen dRVVT Confirm Interp Factor V Activity POC ABG pH POC ABG pCO2 POC ABG pO2 ABG pO2 ABG HCO3 ABG Base Excess ABG Hemoglobin Oxyhemoglobin Sodium 135 L Potassium Chloride 96.3 L Carbon Dioxide BUN 61 H Creatinine 3.1 H Glucose POC Glucose 62 L Lactic Acid Calcium 8.2 L Ionized Calcium Phosphorus Magnesium Direct Bilirubin AST ALT Alkaline Phosphatase Lactate Dehydrogenase Troponin T C-Reactive Protein Total Protein Albumin Prealbumin Triglycerides Cholesterol LDL Cholesterol Direct HDL Cholesterol 25-OH Vitamin D Total PTH Intact Urine pH Urine WBC (Auto) Urine Creatinine Urine Total Protein Fluid Total Protein Vancomycin Trough Rheumatoid Factor Complement C4 Miscellaneous Test Crossmatch 11/24/16 11/24/16 11/24/16 08:34 11:20 12:41 WBC RBC Hgb Hct MCV MCH MCHC RDW Plt Count Lymph % (Auto) [place] % (Auto) Lymph # [place] # Baso # Seg Neutrophils % Seg Neuts % (Manual) Lymphocytes % (Manual) Monocytes % (Manual) Eosinophils % (Manual) Basophils % (Manual) Nucleated RBC % Seg Neutrophils # Seg Neutrophils # Man Lymphocytes # (Manual) Monocytes # (Manual) Eosinophils # (Manual) Basophils # (Manual) PT INR Fibrinogen dRVVT Confirm Interp Factor V Activity POC ABG pH POC ABG pCO2 POC ABG pO2 ABG pO2 ABG HCO3 ABG Base Excess ABG Hemoglobin Oxyhemoglobin Sodium Potassium Chloride Carbon Dioxide BUN Creatinine Glucose POC Glucose 108 H Lactic Acid Calcium Ionized Calcium Phosphorus Magnesium 1.60 L Direct Bilirubin AST ALT Alkaline Phosphatase Lactate Dehydrogenase Troponin T C-Reactive Protein Total Protein Albumin Prealbumin Triglycerides Cholesterol LDL Cholesterol Direct HDL Cholesterol 25-OH Vitamin D Total PTH Intact Urine pH Urine WBC (Auto) Urine Creatinine Urine Total Protein Fluid Total Protein Vancomycin Trough Rheumatoid Factor Complement C4 Miscellaneous Test Crossmatch See Detail 11/25/16 11/25/16 11/25/16 00:03 04:42 04:42 WBC RBC 3.03 L Hgb 8.6 L Hct 25.3 L MCV MCH MCHC RDW 16.2 H Plt Count Lymph % (Auto) [place] % (Auto) 8.1 H Lymph # [place] # Baso # Seg Neutrophils % 71.3 H Seg Neuts % (Manual) Lymphocytes % (Manual) Monocytes % (Manual) Eosinophils % (Manual) Basophils % (Manual) Nucleated RBC % Seg Neutrophils # Seg Neutrophils # Man Lymphocytes # (Manual) Monocytes # (Manual) Eosinophils # (Manual) Basophils # (Manual) PT INR Fibrinogen dRVVT Confirm Interp Factor V Activity POC ABG pH POC ABG pCO2 POC ABG pO2 ABG pO2 ABG HCO3 ABG Base Excess ABG Hemoglobin Oxyhemoglobin Sodium Potassium Chloride Carbon Dioxide BUN 61 H Creatinine 3.0 H Glucose 102 H POC Glucose 113 H Lactic Acid Calcium 8.2 L Ionized Calcium Phosphorus Magnesium Direct Bilirubin AST ALT Alkaline Phosphatase 142 H Lactate Dehydrogenase Troponin T C-Reactive Protein Total Protein 5.7 L Albumin 1.5 L Prealbumin Triglycerides Cholesterol LDL Cholesterol Direct HDL Cholesterol 25-OH Vitamin D Total PTH Intact Urine pH Urine WBC (Auto) Urine Creatinine Urine Total Protein Fluid Total Protein Vancomycin Trough Rheumatoid Factor Complement C4 Miscellaneous Test Crossmatch 11/25/16 11/25/16 11/25/16 05:12 11:31 14:12 WBC RBC Hgb Hct MCV MCH MCHC RDW Plt Count Lymph % (Auto) [place] % (Auto) Lymph # [place] # Baso # Seg Neutrophils % Seg Neuts % (Manual) Lymphocytes % (Manual) Monocytes % (Manual) Eosinophils % (Manual) Basophils % (Manual) Nucleated RBC % Seg Neutrophils # Seg Neutrophils # Man Lymphocytes # (Manual) Monocytes # (Manual) Eosinophils # (Manual) Basophils # (Manual) PT INR Fibrinogen dRVVT Confirm Interp Factor V Activity POC ABG pH 7.487 H POC ABG pCO2 POC ABG pO2 153 H ABG pO2 ABG HCO3 ABG Base Excess ABG Hemoglobin Oxyhemoglobin Sodium Potassium Chloride Carbon Dioxide BUN Creatinine Glucose POC Glucose 131 H 140 H Lactic Acid Calcium Ionized Calcium Phosphorus Magnesium Direct Bilirubin AST ALT Alkaline Phosphatase Lactate Dehydrogenase Troponin T C-Reactive Protein Total Protein Albumin Prealbumin Triglycerides Cholesterol LDL Cholesterol Direct HDL Cholesterol 25-OH Vitamin D Total PTH Intact Urine pH Urine WBC (Auto) Urine Creatinine Urine Total Protein Fluid Total Protein Vancomycin Trough Rheumatoid Factor Complement C4 Miscellaneous Test Crossmatch 11/25/16 11/26/16 11/26/16 17:23 00:09 05:13 WBC RBC 2.94 L Hgb 8.4 L Hct 24.6 L MCV MCH MCHC RDW 16.4 H Plt Count Lymph % (Auto) [place] % (Auto) 12.3 H Lymph # [place] # 1.1 H Baso # Seg Neutrophils % Seg Neuts % (Manual) Lymphocytes % (Manual) Monocytes % (Manual) Eosinophils % (Manual) Basophils % (Manual) Nucleated RBC % Seg Neutrophils # Seg Neutrophils # Man Lymphocytes # (Manual) Monocytes # (Manual) Eosinophils # (Manual) Basophils # (Manual) PT INR Fibrinogen dRVVT Confirm Interp Factor V Activity POC ABG pH POC ABG pCO2 POC ABG pO2 ABG pO2 ABG HCO3 ABG Base Excess ABG Hemoglobin Oxyhemoglobin Sodium Potassium Chloride Carbon Dioxide BUN Creatinine Glucose POC Glucose 146 H 112 H Lactic Acid Calcium Ionized Calcium Phosphorus Magnesium Direct Bilirubin AST ALT Alkaline Phosphatase Lactate Dehydrogenase Troponin T C-Reactive Protein Total Protein Albumin Prealbumin Triglycerides Cholesterol LDL Cholesterol Direct HDL Cholesterol 25-OH Vitamin D Total PTH Intact Urine pH Urine WBC (Auto) Urine Creatinine Urine Total Protein Fluid Total Protein Vancomycin Trough Rheumatoid Factor Complement C4 Miscellaneous Test Crossmatch 11/26/16 11/26/16 11/26/16 05:13 05:28 11:53 WBC RBC Hgb Hct MCV MCH MCHC RDW Plt Count Lymph % (Auto) [place] % (Auto) Lymph # [place] # Baso # Seg Neutrophils % Seg Neuts % (Manual) Lymphocytes % (Manual) Monocytes % (Manual) Eosinophils % (Manual) Basophils % (Manual) Nucleated RBC % Seg Neutrophils # Seg Neutrophils # Man Lymphocytes # (Manual) Monocytes # (Manual) Eosinophils # (Manual) Basophils # (Manual) PT INR Fibrinogen dRVVT Confirm Interp Factor V Activity POC ABG pH POC ABG pCO2 POC ABG pO2 ABG pO2 ABG HCO3 ABG Base Excess ABG Hemoglobin Oxyhemoglobin Sodium Potassium Chloride 97.8 L Carbon Dioxide BUN 37 H Creatinine 2.0 H Glucose 109 H POC Glucose 117 H 111 H Lactic Acid Calcium 7.9 L Ionized Calcium Phosphorus 1.80 L D Magnesium Direct Bilirubin AST ALT Alkaline Phosphatase Lactate Dehydrogenase Troponin T C-Reactive Protein Total Protein Albumin Prealbumin Triglycerides Cholesterol LDL Cholesterol Direct HDL Cholesterol 25-OH Vitamin D Total PTH Intact Urine pH Urine WBC (Auto) Urine Creatinine Urine Total Protein Fluid Total Protein Vancomycin Trough Rheumatoid Factor Complement C4 Miscellaneous Test Crossmatch 11/26/16 11/27/16 11/27/16 17:14 04:50 06:02 WBC RBC Hgb Hct MCV MCH MCHC RDW Plt Count Lymph % (Auto) [place] % (Auto) Lymph # [place] # Baso # Seg Neutrophils % Seg Neuts % (Manual) Lymphocytes % (Manual) Monocytes % (Manual) Eosinophils % (Manual) Basophils % (Manual) Nucleated RBC % Seg Neutrophils # Seg Neutrophils # Man Lymphocytes # (Manual) Monocytes # (Manual) Eosinophils # (Manual) Basophils # (Manual) PT INR Fibrinogen dRVVT Confirm Interp Factor V Activity POC ABG pH POC ABG pCO2 POC ABG pO2 ABG pO2 75.2 L ABG HCO3 26.4 H ABG Base Excess ABG Hemoglobin 7.6 L Oxyhemoglobin 94.8 L Sodium Potassium Chloride Carbon Dioxide BUN 49 H Creatinine 2.3 H Glucose POC Glucose 115 H Lactic Acid Calcium Ionized Calcium Phosphorus 1.50 L Magnesium Direct Bilirubin AST ALT Alkaline Phosphatase Lactate Dehydrogenase Troponin T C-Reactive Protein Total Protein Albumin Prealbumin Triglycerides Cholesterol LDL Cholesterol Direct HDL Cholesterol 25-OH Vitamin D Total PTH Intact Urine pH Urine WBC (Auto) Urine Creatinine Urine Total Protein Fluid Total Protein Vancomycin Trough Rheumatoid Factor Complement C4 Miscellaneous Test Crossmatch 11/27/16 11/27/16 11/27/16 06:02 11:25 17:25 WBC 11.6 H RBC 2.75 L Hgb 7.6 L Hct 23.4 L MCV MCH MCHC RDW 16.5 H Plt Count Lymph % (Auto) [place] % (Auto) Lymph # [place] # Baso # Seg Neutrophils % Seg Neuts % (Manual) Lymphocytes % (Manual) Monocytes % (Manual) Eosinophils % (Manual) Basophils % (Manual) Nucleated RBC % Seg Neutrophils # Seg Neutrophils # Man Lymphocytes # (Manual) Monocytes # (Manual) Eosinophils # (Manual) Basophils # (Manual) PT INR Fibrinogen dRVVT Confirm Interp Factor V Activity POC ABG pH POC ABG pCO2 POC ABG pO2 ABG pO2 ABG HCO3 ABG Base Excess ABG Hemoglobin Oxyhemoglobin Sodium Potassium Chloride Carbon Dioxide BUN Creatinine Glucose POC Glucose 114 H 126 H Lactic Acid Calcium Ionized Calcium Phosphorus Magnesium Direct Bilirubin AST ALT Alkaline Phosphatase Lactate Dehydrogenase Troponin T C-Reactive Protein Total Protein Albumin Prealbumin Triglycerides Cholesterol LDL Cholesterol Direct HDL Cholesterol 25-OH Vitamin D Total PTH Intact Urine pH Urine WBC (Auto) Urine Creatinine Urine Total Protein Fluid Total Protein Vancomycin Trough Rheumatoid Factor Complement C4 Miscellaneous Test Crossmatch 11/28/16 11/28/16 11/28/16 04:45 05:33 05:44 WBC RBC Hgb Hct MCV MCH MCHC RDW Plt Count Lymph % (Auto) [place] % (Auto) Lymph # [place] # Baso # Seg Neutrophils % Seg Neuts % (Manual) Lymphocytes % (Manual) Monocytes % (Manual) Eosinophils % (Manual) Basophils % (Manual) Nucleated RBC % Seg Neutrophils # Seg Neutrophils # Man Lymphocytes # (Manual) Monocytes # (Manual) Eosinophils # (Manual) Basophils # (Manual) PT INR Fibrinogen dRVVT Confirm Interp Factor V Activity POC ABG pH POC ABG pCO2 POC ABG pO2 ABG pO2 99.3 H ABG HCO3 ABG Base Excess ABG Hemoglobin 8.3 L Oxyhemoglobin Sodium Potassium Chloride Carbon Dioxide BUN 63 H Creatinine 2.4 H Glucose 102 H POC Glucose 108 H Lactic Acid Calcium Ionized Calcium Phosphorus 1.80 L Magnesium Direct Bilirubin AST ALT Alkaline Phosphatase Lactate Dehydrogenase Troponin T C-Reactive Protein Total Protein Albumin Prealbumin Triglycerides Cholesterol LDL Cholesterol Direct HDL Cholesterol 25-OH Vitamin D Total PTH Intact Urine pH Urine WBC (Auto) Urine Creatinine Urine Total Protein Fluid Total Protein Vancomycin Trough Rheumatoid Factor Complement C4 Miscellaneous Test Crossmatch 11/28/16 11/28/16 11/28/16 12:31 16:09 23:46 WBC RBC Hgb Hct MCV MCH MCHC RDW Plt Count Lymph % (Auto) [place] % (Auto) Lymph # [place] # Baso # Seg Neutrophils % Seg Neuts % (Manual) Lymphocytes % (Manual) Monocytes % (Manual) Eosinophils % (Manual) Basophils % (Manual) Nucleated RBC % Seg Neutrophils # Seg Neutrophils # Man Lymphocytes # (Manual) Monocytes # (Manual) Eosinophils # (Manual) Basophils # (Manual) PT INR Fibrinogen dRVVT Confirm Interp Factor V Activity POC ABG pH POC ABG pCO2 POC ABG pO2 ABG pO2 ABG HCO3 ABG Base Excess ABG Hemoglobin Oxyhemoglobin Sodium Potassium Chloride Carbon Dioxide BUN Creatinine Glucose POC Glucose 126 H 111 H 119 H Lactic Acid Calcium Ionized Calcium Phosphorus Magnesium Direct Bilirubin AST ALT Alkaline Phosphatase Lactate Dehydrogenase Troponin T C-Reactive Protein Total Protein Albumin Prealbumin Triglycerides Cholesterol LDL Cholesterol Direct HDL Cholesterol 25-OH Vitamin D Total PTH Intact Urine pH Urine WBC (Auto) Urine Creatinine Urine Total Protein Fluid Total Protein Vancomycin Trough Rheumatoid Factor Complement C4 Miscellaneous Test Crossmatch 11/29/16 11/29/16 11/29/16 03:33 04:52 05:10 WBC RBC Hgb Hct MCV MCH MCHC RDW Plt Count Lymph % (Auto) [place] % (Auto) Lymph # [place] # Baso # Seg Neutrophils % Seg Neuts % (Manual) Lymphocytes % (Manual) Monocytes % (Manual) Eosinophils % (Manual) Basophils % (Manual) Nucleated RBC % Seg Neutrophils # Seg Neutrophils # Man Lymphocytes # (Manual) Monocytes # (Manual) Eosinophils # (Manual) Basophils # (Manual) PT INR Fibrinogen dRVVT Confirm Interp Factor V Activity POC ABG pH POC ABG pCO2 POC ABG pO2 ABG pO2 ABG HCO3 ABG Base Excess ABG Hemoglobin 7.0 L Oxyhemoglobin 94.9 L Sodium Potassium Chloride Carbon Dioxide BUN 73 H Creatinine 2.7 H Glucose POC Glucose 108 H Lactic Acid Calcium Ionized Calcium Phosphorus Magnesium Direct Bilirubin AST ALT Alkaline Phosphatase Lactate Dehydrogenase Troponin T C-Reactive Protein Total Protein Albumin Prealbumin Triglycerides Cholesterol LDL Cholesterol Direct HDL Cholesterol 25-OH Vitamin D Total PTH Intact Urine pH Urine WBC (Auto) Urine Creatinine Urine Total Protein Fluid Total Protein Vancomycin Trough Rheumatoid Factor Complement C4 Miscellaneous Test Crossmatch 11/29/16 11/29/16 11/29/16 12:16 18:05 23:46 WBC RBC Hgb Hct MCV MCH MCHC RDW Plt Count Lymph % (Auto) [place] % (Auto) Lymph # [place] # Baso # Seg Neutrophils % Seg Neuts % (Manual) Lymphocytes % (Manual) Monocytes % (Manual) Eosinophils % (Manual) Basophils % (Manual) Nucleated RBC % Seg Neutrophils # Seg Neutrophils # Man Lymphocytes # (Manual) Monocytes # (Manual) Eosinophils # (Manual) Basophils # (Manual) PT INR Fibrinogen dRVVT Confirm Interp Factor V Activity POC ABG pH POC ABG pCO2 POC ABG pO2 ABG pO2 ABG HCO3 ABG Base Excess ABG Hemoglobin Oxyhemoglobin Sodium Potassium Chloride Carbon Dioxide BUN Creatinine Glucose POC Glucose 133 H 146 H 141 H Lactic Acid Calcium Ionized Calcium Phosphorus Magnesium Direct Bilirubin AST ALT Alkaline Phosphatase Lactate Dehydrogenase Troponin T C-Reactive Protein Total Protein Albumin Prealbumin Triglycerides Cholesterol LDL Cholesterol Direct HDL Cholesterol 25-OH Vitamin D Total PTH Intact Urine pH Urine WBC (Auto) Urine Creatinine Urine Total Protein Fluid Total Protein Vancomycin Trough Rheumatoid Factor Complement C4 Miscellaneous Test Crossmatch 11/30/16 11/30/16 11/30/16 04:17 04:17 04:32 WBC 12.0 H RBC 2.80 L Hgb 7.8 L Hct 23.6 L MCV MCH MCHC RDW 16.6 H Plt Count Lymph % (Auto) [place] % (Auto) 11.3 H Lymph # [place] # 1.4 H Baso # Seg Neutrophils % Seg Neuts % (Manual) Lymphocytes % (Manual) Monocytes % (Manual) Eosinophils % (Manual) Basophils % (Manual) Nucleated RBC % Seg Neutrophils # 8.2 H Seg Neutrophils # Man Lymphocytes # (Manual) Monocytes # (Manual) Eosinophils # (Manual) Basophils # (Manual) PT INR Fibrinogen dRVVT Confirm Interp Factor V Activity POC ABG pH POC ABG pCO2 POC ABG pO2 ABG pO2 ABG HCO3 ABG Base Excess ABG Hemoglobin Oxyhemoglobin Sodium 169 H* D Potassium 5.1 H Chloride 121.5 H Carbon Dioxide BUN 34 H Creatinine 1.3 H D Glucose 133 H POC Glucose 131 H Lactic Acid Calcium 10.3 H Ionized Calcium Phosphorus Magnesium Direct Bilirubin AST ALT Alkaline Phosphatase Lactate Dehydrogenase Troponin T C-Reactive Protein Total Protein Albumin Prealbumin Triglycerides Cholesterol LDL Cholesterol Direct HDL Cholesterol 25-OH Vitamin D Total PTH Intact Urine pH Urine WBC (Auto) Urine Creatinine Urine Total Protein Fluid Total Protein Vancomycin Trough Rheumatoid Factor Complement C4 Miscellaneous Test Crossmatch 11/30/16 11/30/16 11/30/16 05:45 11:10 17:26 WBC RBC Hgb Hct MCV MCH MCHC RDW Plt Count Lymph % (Auto) [place] % (Auto) Lymph # [place] # Baso # Seg Neutrophils % Seg Neuts % (Manual) Lymphocytes % (Manual) Monocytes % (Manual) Eosinophils % (Manual) Basophils % (Manual) Nucleated RBC % Seg Neutrophils # Seg Neutrophils # Man Lymphocytes # (Manual) Monocytes # (Manual) Eosinophils # (Manual) Basophils # (Manual) PT INR Fibrinogen dRVVT Confirm Interp Factor V Activity POC ABG pH POC ABG pCO2 POC ABG pO2 ABG pO2 ABG HCO3 ABG Base Excess ABG Hemoglobin Oxyhemoglobin Sodium Potassium Chloride Carbon Dioxide BUN 45 H Creatinine 1.6 H Glucose 131 H POC Glucose 146 H 134 H Lactic Acid Calcium Ionized Calcium Phosphorus Magnesium Direct Bilirubin AST ALT Alkaline Phosphatase Lactate Dehydrogenase Troponin T C-Reactive Protein Total Protein Albumin Prealbumin Triglycerides Cholesterol LDL Cholesterol Direct HDL Cholesterol 25-OH Vitamin D Total PTH Intact Urine pH Urine WBC (Auto) Urine Creatinine Urine Total Protein Fluid Total Protein Vancomycin Trough Rheumatoid Factor Complement C4 Miscellaneous Test Crossmatch 11/30/16 12/01/16 12/01/16 23:35 00:06 03:35 WBC RBC Hgb Hct MCV MCH MCHC RDW Plt Count Lymph % (Auto) [place] % (Auto) Lymph # [place] # Baso # Seg Neutrophils % Seg Neuts % (Manual) Lymphocytes % (Manual) Monocytes % (Manual) Eosinophils % (Manual) Basophils % (Manual) Nucleated RBC % Seg Neutrophils # Seg Neutrophils # Man Lymphocytes # (Manual) Monocytes # (Manual) Eosinophils # (Manual) Basophils # (Manual) PT INR Fibrinogen dRVVT Confirm Interp Factor V Activity POC ABG pH POC ABG pCO2 POC ABG pO2 ABG pO2 ABG HCO3 ABG Base Excess ABG Hemoglobin 6.9 L Oxyhemoglobin Sodium Potassium Chloride Carbon Dioxide BUN 58 H Creatinine 1.8 H Glucose 146 H POC Glucose 151 H Lactic Acid Calcium Ionized Calcium Phosphorus Magnesium Direct Bilirubin AST ALT Alkaline Phosphatase Lactate Dehydrogenase Troponin T C-Reactive Protein Total Protein Albumin Prealbumin Triglycerides Cholesterol LDL Cholesterol Direct HDL Cholesterol 25-OH Vitamin D Total PTH Intact Urine pH Urine WBC (Auto) Urine Creatinine Urine Total Protein Fluid Total Protein Vancomycin Trough Rheumatoid Factor Complement C4 Miscellaneous Test Crossmatch 12/01/16 12/01/16 12/01/16 03:35 05:47 11:52 WBC 12.3 H RBC 2.82 L Hgb 7.8 L Hct 23.7 L MCV MCH MCHC RDW 16.7 H Plt Count Lymph % (Auto) [place] % (Auto) 9.8 H Lymph # [place] # 1.2 H Baso # Seg Neutrophils % Seg Neuts % (Manual) Lymphocytes % (Manual) Monocytes % (Manual) Eosinophils % (Manual) Basophils % (Manual) Nucleated RBC % Seg Neutrophils # 8.4 H Seg Neutrophils # Man Lymphocytes # (Manual) Monocytes # (Manual) Eosinophils # (Manual) Basophils # (Manual) PT INR Fibrinogen dRVVT Confirm Interp Factor V Activity POC ABG pH POC ABG pCO2 POC ABG pO2 ABG pO2 ABG HCO3 ABG Base Excess ABG Hemoglobin Oxyhemoglobin Sodium Potassium Chloride Carbon Dioxide BUN Creatinine Glucose POC Glucose 152 H 152 H Lactic Acid Calcium Ionized Calcium Phosphorus Magnesium Direct Bilirubin AST ALT Alkaline Phosphatase Lactate Dehydrogenase Troponin T C-Reactive Protein Total Protein Albumin Prealbumin Triglycerides Cholesterol LDL Cholesterol Direct HDL Cholesterol 25-OH Vitamin D Total PTH Intact Urine pH Urine WBC (Auto) Urine Creatinine Urine Total Protein Fluid Total Protein Vancomycin Trough Rheumatoid Factor Complement C4 Miscellaneous Test Crossmatch 12/01/16 12/01/16 12/02/16 17:40 23:41 05:00 WBC RBC Hgb Hct MCV MCH MCHC RDW Plt Count Lymph % (Auto) [place] % (Auto) Lymph # [place] # Baso # Seg Neutrophils % Seg Neuts % (Manual) Lymphocytes % (Manual) Monocytes % (Manual) Eosinophils % (Manual) Basophils % (Manual) Nucleated RBC % Seg Neutrophils # Seg Neutrophils # Man Lymphocytes # (Manual) Monocytes # (Manual) Eosinophils # (Manual) Basophils # (Manual) PT INR Fibrinogen dRVVT Confirm Interp Factor V Activity POC ABG pH POC ABG pCO2 POC ABG pO2 ABG pO2 ABG HCO3 ABG Base Excess ABG Hemoglobin Oxyhemoglobin Sodium Potassium Chloride Carbon Dioxide BUN 45 H Creatinine Glucose 115 H POC Glucose 140 H 144 H Lactic Acid Calcium Ionized Calcium Phosphorus Magnesium Direct Bilirubin AST ALT Alkaline Phosphatase Lactate Dehydrogenase Troponin T C-Reactive Protein Total Protein Albumin Prealbumin Triglycerides Cholesterol LDL Cholesterol Direct HDL Cholesterol 25-OH Vitamin D Total PTH Intact Urine pH Urine WBC (Auto) Urine Creatinine Urine Total Protein Fluid Total Protein Vancomycin Trough Rheumatoid Factor Complement C4 Miscellaneous Test Crossmatch 12/02/16 12/02/16 12/02/16 05:31 11:20 17:38 WBC RBC Hgb Hct MCV MCH MCHC RDW Plt Count Lymph % (Auto) [place] % (Auto) Lymph # [place] # Baso # Seg Neutrophils % Seg Neuts % (Manual) Lymphocytes % (Manual) Monocytes % (Manual) Eosinophils % (Manual) Basophils % (Manual) Nucleated RBC % Seg Neutrophils # Seg Neutrophils # Man Lymphocytes # (Manual) Monocytes # (Manual) Eosinophils # (Manual) Basophils # (Manual) PT INR Fibrinogen dRVVT Confirm Interp Factor V Activity POC ABG pH POC ABG pCO2 POC ABG pO2 ABG pO2 ABG HCO3 ABG Base Excess ABG Hemoglobin Oxyhemoglobin Sodium Potassium Chloride Carbon Dioxide BUN Creatinine Glucose POC Glucose 136 H 177 H 139 H Lactic Acid Calcium Ionized Calcium Phosphorus Magnesium Direct Bilirubin AST ALT Alkaline Phosphatase Lactate Dehydrogenase Troponin T C-Reactive Protein Total Protein Albumin Prealbumin Triglycerides Cholesterol LDL Cholesterol Direct HDL Cholesterol 25-OH Vitamin D Total PTH Intact Urine pH Urine WBC (Auto) Urine Creatinine Urine Total Protein Fluid Total Protein Vancomycin Trough Rheumatoid Factor Complement C4 Miscellaneous Test Crossmatch 12/02/16 12/03/16 12/03/16 23:43 04:00 04:00 WBC 20.4 H RBC 2.74 L Hgb 7.4 L Hct 23.6 L MCV MCH 27 L MCHC RDW 17.1 H Plt Count Lymph % (Auto) [place] % (Auto) Lymph # [place] # Baso # Seg Neutrophils % Seg Neuts % (Manual) 31.0 L Lymphocytes % (Manual) Monocytes % (Manual) Eosinophils % (Manual) Basophils % (Manual) Nucleated RBC % Seg Neutrophils # Seg Neutrophils # Man Lymphocytes # (Manual) Monocytes # (Manual) Eosinophils # (Manual) Basophils # (Manual) PT INR Fibrinogen dRVVT Confirm Interp Factor V Activity POC ABG pH POC ABG pCO2 POC ABG pO2 ABG pO2 ABG HCO3 ABG Base Excess ABG Hemoglobin Oxyhemoglobin Sodium Potassium Chloride Carbon Dioxide BUN 61 H Creatinine 1.6 H Glucose 119 H POC Glucose 158 H Lactic Acid Calcium Ionized Calcium Phosphorus Magnesium Direct Bilirubin AST ALT Alkaline Phosphatase Lactate Dehydrogenase Troponin T C-Reactive Protein Total Protein Albumin Prealbumin Triglycerides Cholesterol LDL Cholesterol Direct HDL Cholesterol 25-OH Vitamin D Total PTH Intact Urine pH Urine WBC (Auto) Urine Creatinine Urine Total Protein Fluid Total Protein Vancomycin Trough Rheumatoid Factor Complement C4 Miscellaneous Test Crossmatch 12/03/16 12/03/16 12/03/16 05:02 12:11 18:16 WBC RBC Hgb Hct MCV MCH MCHC RDW Plt Count Lymph % (Auto) [place] % (Auto) Lymph # [place] # Baso # Seg Neutrophils % Seg Neuts % (Manual) Lymphocytes % (Manual) Monocytes % (Manual) Eosinophils % (Manual) Basophils % (Manual) Nucleated RBC % Seg Neutrophils # Seg Neutrophils # Man Lymphocytes # (Manual) Monocytes # (Manual) Eosinophils # (Manual) Basophils # (Manual) PT INR Fibrinogen dRVVT Confirm Interp Factor V Activity POC ABG pH POC ABG pCO2 POC ABG pO2 ABG pO2 ABG HCO3 ABG Base Excess ABG Hemoglobin Oxyhemoglobin Sodium Potassium Chloride Carbon Dioxide BUN Creatinine Glucose POC Glucose 146 H 157 H 124 H Lactic Acid Calcium Ionized Calcium Phosphorus Magnesium Direct Bilirubin AST ALT Alkaline Phosphatase Lactate Dehydrogenase Troponin T C-Reactive Protein Total Protein Albumin Prealbumin Triglycerides Cholesterol LDL Cholesterol Direct HDL Cholesterol 25-OH Vitamin D Total PTH Intact Urine pH Urine WBC (Auto) Urine Creatinine Urine Total Protein Fluid Total Protein Vancomycin Trough Rheumatoid Factor Complement C4 Miscellaneous Test Crossmatch 12/03/16 12/04/16 12/04/16 23:41 04:00 04:45 WBC RBC Hgb Hct MCV MCH MCHC RDW Plt Count Lymph % (Auto) [place] % (Auto) Lymph # [place] # Baso # Seg Neutrophils % Seg Neuts % (Manual) Lymphocytes % (Manual) Monocytes % (Manual) Eosinophils % (Manual) Basophils % (Manual) Nucleated RBC % Seg Neutrophils # Seg Neutrophils # Man Lymphocytes # (Manual) Monocytes # (Manual) Eosinophils # (Manual) Basophils # (Manual) PT INR Fibrinogen dRVVT Confirm Interp Factor V Activity POC ABG pH POC ABG pCO2 POC ABG pO2 ABG pO2 ABG HCO3 ABG Base Excess ABG Hemoglobin Oxyhemoglobin Sodium Potassium Chloride Carbon Dioxide BUN 76 H Creatinine 1.6 H Glucose POC Glucose 130 H 136 H Lactic Acid Calcium Ionized Calcium Phosphorus Magnesium Direct Bilirubin AST ALT Alkaline Phosphatase 155 H Lactate Dehydrogenase Troponin T C-Reactive Protein Total Protein 5.5 L Albumin 1.5 L Prealbumin Triglycerides Cholesterol LDL Cholesterol Direct HDL Cholesterol 25-OH Vitamin D Total PTH Intact Urine pH Urine WBC (Auto) Urine Creatinine Urine Total Protein Fluid Total Protein Vancomycin Trough Rheumatoid Factor Complement C4 Miscellaneous Test Crossmatch 12/04/16 12/04/16 12/05/16 12:08 17:23 00:10 WBC RBC Hgb Hct MCV MCH MCHC RDW Plt Count Lymph % (Auto) [place] % (Auto) Lymph # [place] # Baso # Seg Neutrophils % Seg Neuts % (Manual) Lymphocytes % (Manual) Monocytes % (Manual) Eosinophils % (Manual) Basophils % (Manual) Nucleated RBC % Seg Neutrophils # Seg Neutrophils # Man Lymphocytes # (Manual) Monocytes # (Manual) Eosinophils # (Manual) Basophils # (Manual) PT INR Fibrinogen dRVVT Confirm Interp Factor V Activity POC ABG pH POC ABG pCO2 POC ABG pO2 ABG pO2 ABG HCO3 ABG Base Excess ABG Hemoglobin Oxyhemoglobin Sodium Potassium Chloride Carbon Dioxide BUN Creatinine Glucose POC Glucose 114 H 129 H 124 H Lactic Acid Calcium Ionized Calcium Phosphorus Magnesium Direct Bilirubin AST ALT Alkaline Phosphatase Lactate Dehydrogenase Troponin T C-Reactive Protein Total Protein Albumin Prealbumin Triglycerides Cholesterol LDL Cholesterol Direct HDL Cholesterol 25-OH Vitamin D Total PTH Intact Urine pH Urine WBC (Auto) Urine Creatinine Urine Total Protein Fluid Total Protein Vancomycin Trough Rheumatoid Factor Complement C4 Miscellaneous Test Crossmatch 12/05/16 12/05/16 12/05/16 05:00 05:00 05:18 WBC RBC Hgb Hct MCV MCH MCHC RDW Plt Count Lymph % (Auto) [place] % (Auto) Lymph # [place] # Baso # Seg Neutrophils % Seg Neuts % (Manual) Lymphocytes % (Manual) Monocytes % (Manual) Eosinophils % (Manual) Basophils % (Manual) Nucleated RBC % Seg Neutrophils # Seg Neutrophils # Man Lymphocytes # (Manual) Monocytes # (Manual) Eosinophils # (Manual) Basophils # (Manual) PT INR Fibrinogen dRVVT Confirm Interp Factor V Activity POC ABG pH POC ABG pCO2 POC ABG pO2 ABG pO2 ABG HCO3 ABG Base Excess ABG Hemoglobin Oxyhemoglobin Sodium Potassium Chloride Carbon Dioxide 21 L BUN 85 H Creatinine 1.9 H Glucose 131 H POC Glucose 154 H Lactic Acid Calcium Ionized Calcium Phosphorus Magnesium Direct Bilirubin AST ALT Alkaline Phosphatase Lactate Dehydrogenase Troponin T C-Reactive Protein 19.30 H Total Protein Albumin Prealbumin Triglycerides Cholesterol LDL Cholesterol Direct HDL Cholesterol 25-OH Vitamin D Total PTH Intact Urine pH Urine WBC (Auto) Urine Creatinine Urine Total Protein Fluid Total Protein Vancomycin Trough Rheumatoid Factor Complement C4 Miscellaneous Test Crossmatch 12/05/16 12/05/16 12/05/16 11:43 17:46 23:25 WBC RBC Hgb Hct MCV MCH MCHC RDW Plt Count Lymph % (Auto) [place] % (Auto) Lymph # [place] # Baso # Seg Neutrophils % Seg Neuts % (Manual) Lymphocytes % (Manual) Monocytes % (Manual) Eosinophils % (Manual) Basophils % (Manual) Nucleated RBC % Seg Neutrophils # Seg Neutrophils # Man Lymphocytes # (Manual) Monocytes # (Manual) Eosinophils # (Manual) Basophils # (Manual) PT INR Fibrinogen dRVVT Confirm Interp Factor V Activity POC ABG pH POC ABG pCO2 POC ABG pO2 ABG pO2 ABG HCO3 ABG Base Excess ABG Hemoglobin Oxyhemoglobin Sodium Potassium Chloride Carbon Dioxide BUN Creatinine Glucose POC Glucose 117 H 113 H 111 H Lactic Acid Calcium Ionized Calcium Phosphorus Magnesium Direct Bilirubin AST ALT Alkaline Phosphatase Lactate Dehydrogenase Troponin T C-Reactive Protein Total Protein Albumin Prealbumin Triglycerides Cholesterol LDL Cholesterol Direct HDL Cholesterol 25-OH Vitamin D Total PTH Intact Urine pH Urine WBC (Auto) Urine Creatinine Urine Total Protein Fluid Total Protein Vancomycin Trough Rheumatoid Factor Complement C4 Miscellaneous Test Crossmatch 12/05/16 12/06/16 12/06/16 Unknown 04:58 06:00 WBC RBC Hgb Hct MCV MCH MCHC RDW Plt Count Lymph % (Auto) [place] % (Auto) Lymph # [place] # Baso # Seg Neutrophils % Seg Neuts % (Manual) Lymphocytes % (Manual) Monocytes % (Manual) Eosinophils % (Manual) Basophils % (Manual) Nucleated RBC % Seg Neutrophils # Seg Neutrophils # Man Lymphocytes # (Manual) Monocytes # (Manual) Eosinophils # (Manual) Basophils # (Manual) PT INR Fibrinogen dRVVT Confirm Interp Factor V Activity POC ABG pH POC ABG pCO2 POC ABG pO2 ABG pO2 75.2 L ABG HCO3 ABG Base Excess -3.4 L ABG Hemoglobin 7.4 L Oxyhemoglobin 94.5 L Sodium Potassium Chloride Carbon Dioxide 20 L BUN 99 H Creatinine 2.1 H Glucose 126 H POC Glucose 145 H Lactic Acid Calcium Ionized Calcium Phosphorus 4.80 H Magnesium Direct Bilirubin AST ALT Alkaline Phosphatase Lactate Dehydrogenase Troponin T C-Reactive Protein Total Protein Albumin Prealbumin Triglycerides Cholesterol LDL Cholesterol Direct HDL Cholesterol 25-OH Vitamin D Total PTH Intact Urine pH Urine WBC (Auto) Urine Creatinine Urine Total Protein Fluid Total Protein Vancomycin Trough Rheumatoid Factor Complement C4 Miscellaneous Test Crossmatch 12/06/16 12/06/16 12/06/16 06:46 11:54 17:55 WBC RBC Hgb 8.3 L Hct 26.4 L MCV MCH MCHC RDW Plt Count Lymph % (Auto) [place] % (Auto) Lymph # [place] # Baso # Seg Neutrophils % Seg Neuts % (Manual) Lymphocytes % (Manual) Monocytes % (Manual) Eosinophils % (Manual) Basophils % (Manual) Nucleated RBC % Seg Neutrophils # Seg Neutrophils # Man Lymphocytes # (Manual) Monocytes # (Manual) Eosinophils # (Manual) Basophils # (Manual) PT INR Fibrinogen dRVVT Confirm Interp Factor V Activity POC ABG pH POC ABG pCO2 POC ABG pO2 ABG pO2 ABG HCO3 ABG Base Excess ABG Hemoglobin Oxyhemoglobin Sodium Potassium Chloride Carbon Dioxide BUN Creatinine Glucose POC Glucose 126 H 157 H Lactic Acid Calcium Ionized Calcium Phosphorus Magnesium Direct Bilirubin AST ALT Alkaline Phosphatase Lactate Dehydrogenase Troponin T C-Reactive Protein Total Protein Albumin Prealbumin Triglycerides Cholesterol LDL Cholesterol Direct HDL Cholesterol 25-OH Vitamin D Total PTH Intact Urine pH Urine WBC (Auto) Urine Creatinine Urine Total Protein Fluid Total Protein Vancomycin Trough Rheumatoid Factor Complement C4 Miscellaneous Test Crossmatch 12/06/16 12/07/16 12/07/16 23:59 05:34 06:30 WBC RBC Hgb Hct MCV MCH MCHC RDW Plt Count Lymph % (Auto) [place] % (Auto) Lymph # [place] # Baso # Seg Neutrophils % Seg Neuts % (Manual) Lymphocytes % (Manual) Monocytes % (Manual) Eosinophils % (Manual) Basophils % (Manual) Nucleated RBC % Seg Neutrophils # Seg Neutrophils # Man Lymphocytes # (Manual) Monocytes # (Manual) Eosinophils # (Manual) Basophils # (Manual) PT INR Fibrinogen dRVVT Confirm Interp Factor V Activity POC ABG pH POC ABG pCO2 POC ABG pO2 ABG pO2 ABG HCO3 ABG Base Excess ABG Hemoglobin Oxyhemoglobin Sodium Potassium Chloride Carbon Dioxide BUN 67 H Creatinine 1.4 H Glucose 126 H POC Glucose 129 H 129 H Lactic Acid Calcium Ionized Calcium Phosphorus Magnesium Direct Bilirubin AST ALT Alkaline Phosphatase Lactate Dehydrogenase Troponin T C-Reactive Protein Total Protein Albumin Prealbumin Triglycerides Cholesterol LDL Cholesterol Direct HDL Cholesterol 25-OH Vitamin D Total PTH Intact Urine pH Urine WBC (Auto) Urine Creatinine Urine Total Protein Fluid Total Protein Vancomycin Trough Rheumatoid Factor Complement C4 Miscellaneous Test Crossmatch 12/07/16 12/07/16 12/07/16 06:30 08:00 09:45 WBC 18.8 H RBC 2.52 L Hgb 6.9 L 6.8 L Hct 21.2 L 21.1 L MCV MCH 27 L MCHC RDW 18.0 H Plt Count Lymph % (Auto) [place] % (Auto) 9.9 H Lymph # [place] # 1.9 H Baso # Seg Neutrophils % 71.8 H Seg Neuts % (Manual) Lymphocytes % (Manual) Monocytes % (Manual) Eosinophils % (Manual) Basophils % (Manual) Nucleated RBC % Seg Neutrophils # 13.5 H Seg Neutrophils # Man Lymphocytes # (Manual) Monocytes # (Manual) Eosinophils # (Manual) Basophils # (Manual) PT INR Fibrinogen dRVVT Confirm Interp Factor V Activity POC ABG pH POC ABG pCO2 POC ABG pO2 ABG pO2 ABG HCO3 ABG Base Excess ABG Hemoglobin Oxyhemoglobin Sodium Potassium Chloride Carbon Dioxide BUN Creatinine Glucose POC Glucose Lactic Acid Calcium Ionized Calcium Phosphorus Magnesium Direct Bilirubin AST ALT Alkaline Phosphatase Lactate Dehydrogenase Troponin T C-Reactive Protein Total Protein Albumin Prealbumin Triglycerides Cholesterol LDL Cholesterol Direct HDL Cholesterol 25-OH Vitamin D Total PTH Intact Urine pH Urine WBC (Auto) Urine Creatinine Urine Total Protein Fluid Total Protein Vancomycin Trough Rheumatoid Factor Complement C4 Miscellaneous Test Crossmatch See Detail 12/07/16 12/07/16 12/07/16 11:44 18:19 23:59 WBC RBC Hgb Hct MCV MCH MCHC RDW Plt Count Lymph % (Auto) [place] % (Auto) Lymph # [place] # Baso # Seg Neutrophils % Seg Neuts % (Manual) Lymphocytes % (Manual) Monocytes % (Manual) Eosinophils % (Manual) Basophils % (Manual) Nucleated RBC % Seg Neutrophils # Seg Neutrophils # Man Lymphocytes # (Manual) Monocytes # (Manual) Eosinophils # (Manual) Basophils # (Manual) PT INR Fibrinogen dRVVT Confirm Interp Factor V Activity POC ABG pH POC ABG pCO2 POC ABG pO2 ABG pO2 ABG HCO3 ABG Base Excess ABG Hemoglobin Oxyhemoglobin Sodium Potassium Chloride Carbon Dioxide BUN Creatinine Glucose POC Glucose 137 H 138 H 133 H Lactic Acid Calcium Ionized Calcium Phosphorus Magnesium Direct Bilirubin AST ALT Alkaline Phosphatase Lactate Dehydrogenase Troponin T C-Reactive Protein Total Protein Albumin Prealbumin Triglycerides Cholesterol LDL Cholesterol Direct HDL Cholesterol 25-OH Vitamin D Total PTH Intact Urine pH Urine WBC (Auto) Urine Creatinine Urine Total Protein Fluid Total Protein Vancomycin Trough Rheumatoid Factor Complement C4 Miscellaneous Test Crossmatch 12/08/16 12/08/16 12/08/16 05:25 05:30 05:30 WBC 23.8 H RBC 2.88 L Hgb 8.1 L Hct 24.3 L MCV MCH MCHC RDW 16.7 H Plt Count Lymph % (Auto) [place] % (Auto) Lymph # [place] # Baso # Seg Neutrophils % Seg Neuts % (Manual) 76.0 H Lymphocytes % (Manual) 9.0 L Monocytes % (Manual) 9.0 H Eosinophils % (Manual) Basophils % (Manual) Nucleated RBC % Seg Neutrophils # Seg Neutrophils # Man 18.1 H Lymphocytes # (Manual) Monocytes # (Manual) 2.1 H Eosinophils # (Manual) Basophils # (Manual) PT INR Fibrinogen dRVVT Confirm Interp Factor V Activity POC ABG pH POC ABG pCO2 POC ABG pO2 ABG pO2 ABG HCO3 ABG Base Excess ABG Hemoglobin Oxyhemoglobin Sodium Potassium Chloride Carbon Dioxide 21 L BUN 76 H Creatinine 1.6 H Glucose 133 H POC Glucose 177 H Lactic Acid Calcium Ionized Calcium Phosphorus Magnesium Direct Bilirubin AST ALT Alkaline Phosphatase Lactate Dehydrogenase Troponin T C-Reactive Protein Total Protein Albumin Prealbumin Triglycerides Cholesterol LDL Cholesterol Direct HDL Cholesterol 25-OH Vitamin D Total PTH Intact Urine pH Urine WBC (Auto) Urine Creatinine Urine Total Protein Fluid Total Protein Vancomycin Trough Rheumatoid Factor Complement C4 Miscellaneous Test Crossmatch 12/08/16 12/08/16 12/09/16 11:45 18:00 00:00 WBC RBC Hgb Hct MCV MCH MCHC RDW Plt Count Lymph % (Auto) [place] % (Auto) Lymph # [place] # Baso # Seg Neutrophils % Seg Neuts % (Manual) Lymphocytes % (Manual) Monocytes % (Manual) Eosinophils % (Manual) Basophils % (Manual) Nucleated RBC % Seg Neutrophils # Seg Neutrophils # Man Lymphocytes # (Manual) Monocytes # (Manual) Eosinophils # (Manual) Basophils # (Manual) PT INR Fibrinogen dRVVT Confirm Interp Factor V Activity POC ABG pH POC ABG pCO2 POC ABG pO2 ABG pO2 ABG HCO3 ABG Base Excess ABG Hemoglobin Oxyhemoglobin Sodium Potassium Chloride Carbon Dioxide BUN Creatinine Glucose POC Glucose 163 H 123 H 137 H Lactic Acid Calcium Ionized Calcium Phosphorus Magnesium Direct Bilirubin AST ALT Alkaline Phosphatase Lactate Dehydrogenase Troponin T C-Reactive Protein Total Protein Albumin Prealbumin Triglycerides Cholesterol LDL Cholesterol Direct HDL Cholesterol 25-OH Vitamin D Total PTH Intact Urine pH Urine WBC (Auto) Urine Creatinine Urine Total Protein Fluid Total Protein Vancomycin Trough Rheumatoid Factor Complement C4 Miscellaneous Test Crossmatch 12/09/16 12/09/16 12/09/16 05:34 06:00 06:00 WBC 15.5 H RBC 2.87 L Hgb 8.0 L Hct 24.2 L MCV MCH MCHC RDW 17.2 H Plt Count Lymph % (Auto) [place] % (Auto) 11.6 H Lymph # [place] # 1.8 H Baso # Seg Neutrophils % 70.8 H Seg Neuts % (Manual) Lymphocytes % (Manual) Monocytes % (Manual) Eosinophils % (Manual) Basophils % (Manual) Nucleated RBC % Seg Neutrophils # 11.0 H Seg Neutrophils # Man Lymphocytes # (Manual) Monocytes # (Manual) Eosinophils # (Manual) Basophils # (Manual) PT INR Fibrinogen dRVVT Confirm Interp Factor V Activity POC ABG pH POC ABG pCO2 POC ABG pO2 ABG pO2 ABG HCO3 ABG Base Excess ABG Hemoglobin Oxyhemoglobin Sodium Potassium Chloride Carbon Dioxide BUN 51 H Creatinine Glucose 117 H POC Glucose 136 H Lactic Acid Calcium Ionized Calcium Phosphorus Magnesium Direct Bilirubin AST ALT Alkaline Phosphatase Lactate Dehydrogenase Troponin T C-Reactive Protein Total Protein Albumin Prealbumin Triglycerides Cholesterol LDL Cholesterol Direct HDL Cholesterol 25-OH Vitamin D Total PTH Intact Urine pH Urine WBC (Auto) Urine Creatinine Urine Total Protein Fluid Total Protein Vancomycin Trough Rheumatoid Factor Complement C4 Miscellaneous Test Crossmatch 12/09/16 12/09/16 12/09/16 12:29 17:52 23:10 WBC RBC Hgb Hct MCV MCH MCHC RDW Plt Count Lymph % (Auto) [place] % (Auto) Lymph # [place] # Baso # Seg Neutrophils % Seg Neuts % (Manual) Lymphocytes % (Manual) Monocytes % (Manual) Eosinophils % (Manual) Basophils % (Manual) Nucleated RBC % Seg Neutrophils # Seg Neutrophils # Man Lymphocytes # (Manual) Monocytes # (Manual) Eosinophils # (Manual) Basophils # (Manual) PT INR Fibrinogen dRVVT Confirm Interp Factor V Activity POC ABG pH POC ABG pCO2 POC ABG pO2 ABG pO2 ABG HCO3 ABG Base Excess ABG Hemoglobin Oxyhemoglobin Sodium Potassium Chloride Carbon Dioxide BUN Creatinine Glucose POC Glucose 139 H 140 H 129 H Lactic Acid Calcium Ionized Calcium Phosphorus Magnesium Direct Bilirubin AST ALT Alkaline Phosphatase Lactate Dehydrogenase Troponin T C-Reactive Protein Total Protein Albumin Prealbumin Triglycerides Cholesterol LDL Cholesterol Direct HDL Cholesterol 25-OH Vitamin D Total PTH Intact Urine pH Urine WBC (Auto) Urine Creatinine Urine Total Protein Fluid Total Protein Vancomycin Trough Rheumatoid Factor Complement C4 Miscellaneous Test Crossmatch 12/10/16 12/10/16 12/10/16 05:00 05:00 06:54 WBC 15.7 H RBC 2.87 L Hgb 8.2 L Hct 24.4 L MCV MCH MCHC RDW 17.2 H Plt Count Lymph % (Auto) [place] % (Auto) 8.3 H Lymph # [place] # 1.3 H Baso # Seg Neutrophils % 72.8 H Seg Neuts % (Manual) Lymphocytes % (Manual) Monocytes % (Manual) Eosinophils % (Manual) Basophils % (Manual) Nucleated RBC % Seg Neutrophils # 11.4 H Seg Neutrophils # Man Lymphocytes # (Manual) Monocytes # (Manual) Eosinophils # (Manual) Basophils # (Manual) PT INR Fibrinogen dRVVT Confirm Interp Factor V Activity POC ABG pH POC ABG pCO2 POC ABG pO2 ABG pO2 ABG HCO3 ABG Base Excess ABG Hemoglobin Oxyhemoglobin Sodium Potassium Chloride Carbon Dioxide BUN 64 H Creatinine 1.4 H Glucose 134 H POC Glucose 154 H Lactic Acid Calcium Ionized Calcium Phosphorus Magnesium Direct Bilirubin AST ALT Alkaline Phosphatase Lactate Dehydrogenase Troponin T C-Reactive Protein Total Protein Albumin Prealbumin Triglycerides Cholesterol LDL Cholesterol Direct HDL Cholesterol 25-OH Vitamin D Total PTH Intact Urine pH Urine WBC (Auto) Urine Creatinine Urine Total Protein Fluid Total Protein Vancomycin Trough Rheumatoid Factor Complement C4 Miscellaneous Test Crossmatch 12/10/16 12/10/16 12/10/16 11:58 17:29 23:52 WBC RBC Hgb Hct MCV MCH MCHC RDW Plt Count Lymph % (Auto) [place] % (Auto) Lymph # [place] # Baso # Seg Neutrophils % Seg Neuts % (Manual) Lymphocytes % (Manual) Monocytes % (Manual) Eosinophils % (Manual) Basophils % (Manual) Nucleated RBC % Seg Neutrophils # Seg Neutrophils # Man Lymphocytes # (Manual) Monocytes # (Manual) Eosinophils # (Manual) Basophils # (Manual) PT INR Fibrinogen dRVVT Confirm Interp Factor V Activity POC ABG pH POC ABG pCO2 POC ABG pO2 ABG pO2 ABG HCO3 ABG Base Excess ABG Hemoglobin Oxyhemoglobin Sodium Potassium Chloride Carbon Dioxide BUN Creatinine Glucose POC Glucose 144 H 163 H 125 H Lactic Acid Calcium Ionized Calcium Phosphorus Magnesium Direct Bilirubin AST ALT Alkaline Phosphatase Lactate Dehydrogenase Troponin T C-Reactive Protein Total Protein Albumin Prealbumin Triglycerides Cholesterol LDL Cholesterol Direct HDL Cholesterol 25-OH Vitamin D Total PTH Intact Urine pH Urine WBC (Auto) Urine Creatinine Urine Total Protein Fluid Total Protein Vancomycin Trough Rheumatoid Factor Complement C4 Miscellaneous Test Crossmatch 12/11/16 12/11/16 12/11/16 05:38 06:30 06:30 WBC 14.4 H RBC 2.76 L Hgb 7.7 L Hct 23.4 L MCV MCH MCHC RDW 17.2 H Plt Count Lymph % (Auto) [place] % (Auto) 8.8 H Lymph # [place] # 1.3 H Baso # Seg Neutrophils % 72.5 H Seg Neuts % (Manual) Lymphocytes % (Manual) Monocytes % (Manual) Eosinophils % (Manual) Basophils % (Manual) Nucleated RBC % Seg Neutrophils # 10.5 H Seg Neutrophils # Man Lymphocytes # (Manual) Monocytes # (Manual) Eosinophils # (Manual) Basophils # (Manual) PT INR Fibrinogen dRVVT Confirm Interp Factor V Activity POC ABG pH POC ABG pCO2 POC ABG pO2 ABG pO2 ABG HCO3 ABG Base Excess ABG Hemoglobin Oxyhemoglobin Sodium Potassium Chloride Carbon Dioxide BUN 43 H Creatinine Glucose 124 H POC Glucose 141 H Lactic Acid Calcium 8.3 L Ionized Calcium Phosphorus Magnesium 1.60 L Direct Bilirubin AST ALT Alkaline Phosphatase Lactate Dehydrogenase Troponin T C-Reactive Protein Total Protein Albumin Prealbumin Triglycerides Cholesterol LDL Cholesterol Direct HDL Cholesterol 25-OH Vitamin D Total PTH Intact Urine pH Urine WBC (Auto) Urine Creatinine Urine Total Protein Fluid Total Protein Vancomycin Trough Rheumatoid Factor Complement C4 Miscellaneous Test Crossmatch 12/11/16 12/11/16 12/11/16 11:15 17:59 23:48 WBC RBC Hgb Hct MCV MCH MCHC RDW Plt Count Lymph % (Auto) [place] % (Auto) Lymph # [place] # Baso # Seg Neutrophils % Seg Neuts % (Manual) Lymphocytes % (Manual) Monocytes % (Manual) Eosinophils % (Manual) Basophils % (Manual) Nucleated RBC % Seg Neutrophils # Seg Neutrophils # Man Lymphocytes # (Manual) Monocytes # (Manual) Eosinophils # (Manual) Basophils # (Manual) PT INR Fibrinogen dRVVT Confirm Interp Factor V Activity POC ABG pH POC ABG pCO2 POC ABG pO2 ABG pO2 ABG HCO3 ABG Base Excess ABG Hemoglobin Oxyhemoglobin Sodium Potassium Chloride Carbon Dioxide BUN Creatinine Glucose POC Glucose 188 H 106 H 119 H Lactic Acid Calcium Ionized Calcium Phosphorus Magnesium Direct Bilirubin AST ALT Alkaline Phosphatase Lactate Dehydrogenase Troponin T C-Reactive Protein Total Protein Albumin Prealbumin Triglycerides Cholesterol LDL Cholesterol Direct HDL Cholesterol 25-OH Vitamin D Total PTH Intact Urine pH Urine WBC (Auto) Urine Creatinine Urine Total Protein Fluid Total Protein Vancomycin Trough Rheumatoid Factor Complement C4 Miscellaneous Test Crossmatch 12/12/16 12/12/16 12/12/16 05:00 06:01 12:20 WBC 16.7 H RBC 2.87 L Hgb 8.0 L Hct 24.2 L MCV MCH MCHC RDW 17.6 H Plt Count Lymph % (Auto) [place] % (Auto) Lymph # [place] # 1.2 H Baso # Seg Neutrophils % 75.3 H Seg Neuts % (Manual) Lymphocytes % (Manual) Monocytes % (Manual) Eosinophils % (Manual) Basophils % (Manual) Nucleated RBC % Seg Neutrophils # 12.6 H Seg Neutrophils # Man Lymphocytes # (Manual) Monocytes # (Manual) Eosinophils # (Manual) Basophils # (Manual) PT INR Fibrinogen dRVVT Confirm Interp Factor V Activity POC ABG pH POC ABG pCO2 POC ABG pO2 ABG pO2 ABG HCO3 ABG Base Excess ABG Hemoglobin Oxyhemoglobin Sodium Potassium Chloride Carbon Dioxide BUN Creatinine Glucose POC Glucose 134 H 149 H Lactic Acid Calcium Ionized Calcium Phosphorus Magnesium Direct Bilirubin AST ALT Alkaline Phosphatase Lactate Dehydrogenase Troponin T C-Reactive Protein Total Protein Albumin Prealbumin Triglycerides Cholesterol LDL Cholesterol Direct HDL Cholesterol 25-OH Vitamin D Total PTH Intact Urine pH Urine WBC (Auto) Urine Creatinine Urine Total Protein Fluid Total Protein Vancomycin Trough Rheumatoid Factor Complement C4 Miscellaneous Test Crossmatch 12/12/16 12/12/16 12/12/16 17:38 23:01 Unknown WBC RBC Hgb Hct MCV MCH MCHC RDW Plt Count Lymph % (Auto) [place] % (Auto) Lymph # [place] # Baso # Seg Neutrophils % Seg Neuts % (Manual) Lymphocytes % (Manual) Monocytes % (Manual) Eosinophils % (Manual) Basophils % (Manual) Nucleated RBC % Seg Neutrophils # Seg Neutrophils # Man Lymphocytes # (Manual) Monocytes # (Manual) Eosinophils # (Manual) Basophils # (Manual) PT INR Fibrinogen dRVVT Confirm Interp Factor V Activity POC ABG pH POC ABG pCO2 POC ABG pO2 ABG pO2 ABG HCO3 ABG Base Excess ABG Hemoglobin Oxyhemoglobin Sodium Potassium Chloride Carbon Dioxide BUN 60 H Creatinine 1.3 H Glucose 126 H POC Glucose 127 H 144 H Lactic Acid Calcium Ionized Calcium Phosphorus Magnesium Direct Bilirubin AST ALT Alkaline Phosphatase Lactate Dehydrogenase Troponin T C-Reactive Protein Total Protein Albumin Prealbumin Triglycerides Cholesterol LDL Cholesterol Direct HDL Cholesterol 25-OH Vitamin D Total PTH Intact Urine pH Urine WBC (Auto) Urine Creatinine Urine Total Protein Fluid Total Protein Vancomycin Trough Rheumatoid Factor Complement C4 Miscellaneous Test Crossmatch 12/13/16 12/13/16 12/13/16 04:00 04:00 05:19 WBC 18.7 H RBC 2.89 L Hgb 8.3 L Hct 24.6 L MCV MCH MCHC RDW 17.5 H Plt Count Lymph % (Auto) [place] % (Auto) Lymph # [place] # 1.3 H Baso # Seg Neutrophils % 71.5 H Seg Neuts % (Manual) Lymphocytes % (Manual) Monocytes % (Manual) Eosinophils % (Manual) Basophils % (Manual) Nucleated RBC % Seg Neutrophils # 13.4 H Seg Neutrophils # Man Lymphocytes # (Manual) Monocytes # (Manual) Eosinophils # (Manual) Basophils # (Manual) PT INR Fibrinogen dRVVT Confirm Interp Factor V Activity POC ABG pH POC ABG pCO2 POC ABG pO2 ABG pO2 ABG HCO3 ABG Base Excess ABG Hemoglobin Oxyhemoglobin Sodium Potassium Chloride Carbon Dioxide BUN 73 H Creatinine 1.5 H Glucose 141 H POC Glucose 171 H Lactic Acid Calcium Ionized Calcium Phosphorus Magnesium Direct Bilirubin AST ALT Alkaline Phosphatase Lactate Dehydrogenase Troponin T C-Reactive Protein Total Protein Albumin Prealbumin Triglycerides Cholesterol LDL Cholesterol Direct HDL Cholesterol 25-OH Vitamin D Total PTH Intact Urine pH Urine WBC (Auto) Urine Creatinine Urine Total Protein Fluid Total Protein Vancomycin Trough Rheumatoid Factor Complement C4 Miscellaneous Test Crossmatch 12/13/16 12/13/16 12/14/16 12:28 16:48 00:01 WBC RBC Hgb Hct MCV MCH MCHC RDW Plt Count Lymph % (Auto) [place] % (Auto) Lymph # [place] # Baso # Seg Neutrophils % Seg Neuts % (Manual) Lymphocytes % (Manual) Monocytes % (Manual) Eosinophils % (Manual) Basophils % (Manual) Nucleated RBC % Seg Neutrophils # Seg Neutrophils # Man Lymphocytes # (Manual) Monocytes # (Manual) Eosinophils # (Manual) Basophils # (Manual) PT INR Fibrinogen dRVVT Confirm Interp Factor V Activity POC ABG pH POC ABG pCO2 POC ABG pO2 ABG pO2 ABG HCO3 ABG Base Excess ABG Hemoglobin Oxyhemoglobin Sodium Potassium Chloride Carbon Dioxide BUN Creatinine Glucose POC Glucose 206 H 173 H 139 H Lactic Acid Calcium Ionized Calcium Phosphorus Magnesium Direct Bilirubin AST ALT Alkaline Phosphatase Lactate Dehydrogenase Troponin T C-Reactive Protein Total Protein Albumin Prealbumin Triglycerides Cholesterol LDL Cholesterol Direct HDL Cholesterol 25-OH Vitamin D Total PTH Intact Urine pH Urine WBC (Auto) Urine Creatinine Urine Total Protein Fluid Total Protein Vancomycin Trough Rheumatoid Factor Complement C4 Miscellaneous Test Crossmatch 12/14/16 12/14/16 12/14/16 05:16 06:10 11:17 WBC RBC Hgb Hct MCV MCH MCHC RDW Plt Count Lymph % (Auto) [place] % (Auto) Lymph # [place] # Baso # Seg Neutrophils % Seg Neuts % (Manual) Lymphocytes % (Manual) Monocytes % (Manual) Eosinophils % (Manual) Basophils % (Manual) Nucleated RBC % Seg Neutrophils # Seg Neutrophils # Man Lymphocytes # (Manual) Monocytes # (Manual) Eosinophils # (Manual) Basophils # (Manual) PT INR Fibrinogen dRVVT Confirm Interp Factor V Activity POC ABG pH POC ABG pCO2 POC ABG pO2 ABG pO2 ABG HCO3 ABG Base Excess ABG Hemoglobin Oxyhemoglobin Sodium Potassium Chloride Carbon Dioxide BUN 57 H Creatinine 1.4 H Glucose 135 H POC Glucose 158 H 137 H Lactic Acid Calcium Ionized Calcium Phosphorus Magnesium Direct Bilirubin AST ALT Alkaline Phosphatase Lactate Dehydrogenase Troponin T C-Reactive Protein Total Protein Albumin Prealbumin Triglycerides Cholesterol LDL Cholesterol Direct HDL Cholesterol 25-OH Vitamin D Total PTH Intact Urine pH Urine WBC (Auto) Urine Creatinine Urine Total Protein Fluid Total Protein Vancomycin Trough Rheumatoid Factor Complement C4 Miscellaneous Test Crossmatch 12/14/16 12/14/16 12/15/16 17:52 23:27 04:00 WBC RBC Hgb Hct MCV MCH MCHC RDW Plt Count Lymph % (Auto) [place] % (Auto) Lymph # [place] # Baso # Seg Neutrophils % Seg Neuts % (Manual) Lymphocytes % (Manual) Monocytes % (Manual) Eosinophils % (Manual) Basophils % (Manual) Nucleated RBC % Seg Neutrophils # Seg Neutrophils # Man Lymphocytes # (Manual) Monocytes # (Manual) Eosinophils # (Manual) Basophils # (Manual) PT INR Fibrinogen dRVVT Confirm Interp Factor V Activity POC ABG pH POC ABG pCO2 POC ABG pO2 ABG pO2 ABG HCO3 ABG Base Excess ABG Hemoglobin Oxyhemoglobin Sodium Potassium Chloride 97.9 L Carbon Dioxide BUN 75 H Creatinine 1.6 H Glucose 122 H POC Glucose 149 H 163 H Lactic Acid Calcium Ionized Calcium Phosphorus 5.20 H Magnesium Direct Bilirubin AST ALT Alkaline Phosphatase Lactate Dehydrogenase Troponin T C-Reactive Protein Total Protein Albumin Prealbumin Triglycerides Cholesterol LDL Cholesterol Direct HDL Cholesterol 25-OH Vitamin D Total PTH Intact Urine pH Urine WBC (Auto) Urine Creatinine Urine Total Protein Fluid Total Protein Vancomycin Trough Rheumatoid Factor Complement C4 Miscellaneous Test Crossmatch 12/15/16 12/15/16 12/15/16 05:50 11:24 17:01 WBC RBC Hgb Hct MCV MCH MCHC RDW Plt Count Lymph % (Auto) [place] % (Auto) Lymph # [place] # Baso # Seg Neutrophils % Seg Neuts % (Manual) Lymphocytes % (Manual) Monocytes % (Manual) Eosinophils % (Manual) Basophils % (Manual) Nucleated RBC % Seg Neutrophils # Seg Neutrophils # Man Lymphocytes # (Manual) Monocytes # (Manual) Eosinophils # (Manual) Basophils # (Manual) PT INR Fibrinogen dRVVT Confirm Interp Factor V Activity POC ABG pH POC ABG pCO2 POC ABG pO2 ABG pO2 ABG HCO3 ABG Base Excess ABG Hemoglobin Oxyhemoglobin Sodium Potassium Chloride Carbon Dioxide BUN Creatinine Glucose POC Glucose 150 H 146 H 167 H Lactic Acid Calcium Ionized Calcium Phosphorus Magnesium Direct Bilirubin AST ALT Alkaline Phosphatase Lactate Dehydrogenase Troponin T C-Reactive Protein Total Protein Albumin Prealbumin Triglycerides Cholesterol LDL Cholesterol Direct HDL Cholesterol 25-OH Vitamin D Total PTH Intact Urine pH Urine WBC (Auto) Urine Creatinine Urine Total Protein Fluid Total Protein Vancomycin Trough Rheumatoid Factor Complement C4 Miscellaneous Test Crossmatch 12/15/16 12/16/16 12/16/16 23:34 05:25 11:24 WBC RBC Hgb Hct MCV MCH MCHC RDW Plt Count Lymph % (Auto) [place] % (Auto) Lymph # [place] # Baso # Seg Neutrophils % Seg Neuts % (Manual) Lymphocytes % (Manual) Monocytes % (Manual) Eosinophils % (Manual) Basophils % (Manual) Nucleated RBC % Seg Neutrophils # Seg Neutrophils # Man Lymphocytes # (Manual) Monocytes # (Manual) Eosinophils # (Manual) Basophils # (Manual) PT INR Fibrinogen dRVVT Confirm Interp Factor V Activity POC ABG pH POC ABG pCO2 POC ABG pO2 ABG pO2 ABG HCO3 ABG Base Excess ABG Hemoglobin Oxyhemoglobin Sodium Potassium Chloride Carbon Dioxide BUN Creatinine Glucose POC Glucose 127 H 139 H 165 H Lactic Acid Calcium Ionized Calcium Phosphorus Magnesium Direct Bilirubin AST ALT Alkaline Phosphatase Lactate Dehydrogenase Troponin T C-Reactive Protein Total Protein Albumin Prealbumin Triglycerides Cholesterol LDL Cholesterol Direct HDL Cholesterol 25-OH Vitamin D Total PTH Intact Urine pH Urine WBC (Auto) Urine Creatinine Urine Total Protein Fluid Total Protein Vancomycin Trough Rheumatoid Factor Complement C4 Miscellaneous Test Crossmatch 12/16/16 12/16/16 12/16/16 15:30 16:25 17:31 WBC 17.8 H RBC 2.38 L Hgb 6.4 L Hct 20.3 L MCV MCH 27 L MCHC RDW 17.4 H Plt Count Lymph % (Auto) [place] % (Auto) Lymph # [place] # Baso # Seg Neutrophils % Seg Neuts % (Manual) Lymphocytes % (Manual) Monocytes % (Manual) 10.0 H Eosinophils % (Manual) Basophils % (Manual) Nucleated RBC % Seg Neutrophils # Seg Neutrophils # Man 8.5 H Lymphocytes # (Manual) Monocytes # (Manual) 1.8 H Eosinophils # (Manual) Basophils # (Manual) PT INR Fibrinogen dRVVT Confirm Interp Factor V Activity POC ABG pH POC ABG pCO2 POC ABG pO2 ABG pO2 ABG HCO3 ABG Base Excess ABG Hemoglobin Oxyhemoglobin Sodium Potassium Chloride Carbon Dioxide BUN Creatinine Glucose POC Glucose 176 H Lactic Acid Calcium Ionized Calcium Phosphorus Magnesium Direct Bilirubin AST ALT Alkaline Phosphatase Lactate Dehydrogenase Troponin T C-Reactive Protein Total Protein Albumin Prealbumin Triglycerides Cholesterol LDL Cholesterol Direct HDL Cholesterol 25-OH Vitamin D Total PTH Intact Urine pH Urine WBC (Auto) Urine Creatinine Urine Total Protein Fluid Total Protein Vancomycin Trough Rheumatoid Factor Complement C4 Miscellaneous Test Crossmatch See Detail 12/17/16 12/17/16 12/17/16 00:14 04:00 05:00 WBC 20.0 H RBC 2.99 L Hgb 8.5 L Hct 25.7 L MCV MCH MCHC RDW 17.2 H Plt Count Lymph % (Auto) [place] % (Auto) Lymph # [place] # Baso # Seg Neutrophils % Seg Neuts % (Manual) Lymphocytes % (Manual) Monocytes % (Manual) Eosinophils % (Manual) Basophils % (Manual) Nucleated RBC % Seg Neutrophils # Seg Neutrophils # Man Lymphocytes # (Manual) Monocytes # (Manual) Eosinophils # (Manual) Basophils # (Manual) PT INR Fibrinogen dRVVT Confirm Interp Factor V Activity POC ABG pH POC ABG pCO2 POC ABG pO2 ABG pO2 ABG HCO3 ABG Base Excess ABG Hemoglobin Oxyhemoglobin Sodium Potassium Chloride 97.7 L Carbon Dioxide BUN 73 H Creatinine 1.7 H Glucose 136 H POC Glucose 148 H Lactic Acid Calcium Ionized Calcium Phosphorus 2.20 L Magnesium 2.70 H Direct Bilirubin AST ALT Alkaline Phosphatase Lactate Dehydrogenase Troponin T C-Reactive Protein Total Protein Albumin Prealbumin Triglycerides Cholesterol LDL Cholesterol Direct HDL Cholesterol 25-OH Vitamin D Total PTH Intact Urine pH Urine WBC (Auto) Urine Creatinine Urine Total Protein Fluid Total Protein Vancomycin Trough Rheumatoid Factor Complement C4 Miscellaneous Test Crossmatch 12/17/16 12/17/16 12/17/16 05:39 12:50 16:32 WBC RBC Hgb Hct MCV MCH MCHC RDW Plt Count Lymph % (Auto) [place] % (Auto) Lymph # [place] # Baso # Seg Neutrophils % Seg Neuts % (Manual) Lymphocytes % (Manual) Monocytes % (Manual) Eosinophils % (Manual) Basophils % (Manual) Nucleated RBC % Seg Neutrophils # Seg Neutrophils # Man Lymphocytes # (Manual) Monocytes # (Manual) Eosinophils # (Manual) Basophils # (Manual) PT INR Fibrinogen dRVVT Confirm Interp Factor V Activity POC ABG pH POC ABG pCO2 POC ABG pO2 ABG pO2 ABG HCO3 ABG Base Excess ABG Hemoglobin Oxyhemoglobin Sodium Potassium Chloride Carbon Dioxide BUN Creatinine Glucose POC Glucose 162 H 146 H 169 H Lactic Acid Calcium Ionized Calcium Phosphorus Magnesium Direct Bilirubin AST ALT Alkaline Phosphatase Lactate Dehydrogenase Troponin T C-Reactive Protein Total Protein Albumin Prealbumin Triglycerides Cholesterol LDL Cholesterol Direct HDL Cholesterol 25-OH Vitamin D Total PTH Intact Urine pH Urine WBC (Auto) Urine Creatinine Urine Total Protein Fluid Total Protein Vancomycin Trough Rheumatoid Factor Complement C4 Miscellaneous Test Crossmatch 12/17/16 12/18/16 12/18/16 23:57 05:00 05:32 WBC RBC Hgb Hct MCV MCH MCHC RDW Plt Count Lymph % (Auto) [place] % (Auto) Lymph # [place] # Baso # Seg Neutrophils % Seg Neuts % (Manual) Lymphocytes % (Manual) Monocytes % (Manual) Eosinophils % (Manual) Basophils % (Manual) Nucleated RBC % Seg Neutrophils # Seg Neutrophils # Man Lymphocytes # (Manual) Monocytes # (Manual) Eosinophils # (Manual) Basophils # (Manual) PT INR Fibrinogen dRVVT Confirm Interp Factor V Activity POC ABG pH POC ABG pCO2 POC ABG pO2 ABG pO2 ABG HCO3 ABG Base Excess ABG Hemoglobin Oxyhemoglobin Sodium Potassium Chloride 97.0 L Carbon Dioxide BUN 63 H Creatinine 1.4 H Glucose 174 H POC Glucose 145 H 201 H Lactic Acid Calcium Ionized Calcium Phosphorus 1.70 L D Magnesium Direct Bilirubin AST ALT Alkaline Phosphatase 257 H Lactate Dehydrogenase Troponin T C-Reactive Protein Total Protein 5.9 L Albumin 1.8 L Prealbumin Triglycerides Cholesterol LDL Cholesterol Direct HDL Cholesterol 25-OH Vitamin D Total PTH Intact Urine pH Urine WBC (Auto) Urine Creatinine Urine Total Protein Fluid Total Protein Vancomycin Trough Rheumatoid Factor Complement C4 Miscellaneous Test Crossmatch 12/18/16 12/18/16 12/18/16 11:43 16:52 23:52 WBC RBC Hgb Hct MCV MCH MCHC RDW Plt Count Lymph % (Auto) [place] % (Auto) Lymph # [place] # Baso # Seg Neutrophils % Seg Neuts % (Manual) Lymphocytes % (Manual) Monocytes % (Manual) Eosinophils % (Manual) Basophils % (Manual) Nucleated RBC % Seg Neutrophils # Seg Neutrophils # Man Lymphocytes # (Manual) Monocytes # (Manual) Eosinophils # (Manual) Basophils # (Manual) PT INR Fibrinogen dRVVT Confirm Interp Factor V Activity POC ABG pH POC ABG pCO2 POC ABG pO2 ABG pO2 ABG HCO3 ABG Base Excess ABG Hemoglobin Oxyhemoglobin Sodium Potassium Chloride Carbon Dioxide BUN Creatinine Glucose POC Glucose 177 H 110 H 162 H Lactic Acid Calcium Ionized Calcium Phosphorus Magnesium Direct Bilirubin AST ALT Alkaline Phosphatase Lactate Dehydrogenase Troponin T C-Reactive Protein Total Protein Albumin Prealbumin Triglycerides Cholesterol LDL Cholesterol Direct HDL Cholesterol 25-OH Vitamin D Total PTH Intact Urine pH Urine WBC (Auto) Urine Creatinine Urine Total Protein Fluid Total Protein Vancomycin Trough Rheumatoid Factor Complement C4 Miscellaneous Test Crossmatch 12/19/16 12/19/16 12/19/16 05:02 05:24 09:30 WBC 20.1 H RBC 2.73 L Hgb 7.6 L Hct 23.6 L MCV MCH MCHC RDW 17.6 H Plt Count Lymph % (Auto) [place] % (Auto) Lymph # [place] # Baso # Seg Neutrophils % Seg Neuts % (Manual) Lymphocytes % (Manual) 13.0 L Monocytes % (Manual) Eosinophils % (Manual) Basophils % (Manual) Nucleated RBC % 1.0 H Seg Neutrophils # Seg Neutrophils # Man 12.9 H Lymphocytes # (Manual) Monocytes # (Manual) 1.4 H Eosinophils # (Manual) Basophils # (Manual) 0.2 H PT INR Fibrinogen dRVVT Confirm Interp Factor V Activity POC ABG pH POC ABG pCO2 POC ABG pO2 ABG pO2 ABG HCO3 ABG Base Excess ABG Hemoglobin Oxyhemoglobin Sodium Potassium Chloride 97.8 L Carbon Dioxide BUN 84 H Creatinine 1.6 H Glucose 133 H POC Glucose 134 H Lactic Acid Calcium Ionized Calcium Phosphorus Magnesium Direct Bilirubin AST ALT Alkaline Phosphatase Lactate Dehydrogenase Troponin T C-Reactive Protein Total Protein Albumin Prealbumin Triglycerides Cholesterol LDL Cholesterol Direct HDL Cholesterol 25-OH Vitamin D Total PTH Intact Urine pH Urine WBC (Auto) Urine Creatinine Urine Total Protein Fluid Total Protein Vancomycin Trough Rheumatoid Factor Complement C4 Miscellaneous Test Crossmatch 12/19/16 12/19/16 12/19/16 09:36 11:12 18:29 WBC RBC Hgb Hct MCV MCH MCHC RDW Plt Count Lymph % (Auto) [place] % (Auto) Lymph # [place] # Baso # Seg Neutrophils % Seg Neuts % (Manual) Lymphocytes % (Manual) Monocytes % (Manual) Eosinophils % (Manual) Basophils % (Manual) Nucleated RBC % Seg Neutrophils # Seg Neutrophils # Man Lymphocytes # (Manual) Monocytes # (Manual) Eosinophils # (Manual) Basophils # (Manual) PT INR Fibrinogen dRVVT Confirm Interp Factor V Activity POC ABG pH 7.503 H POC ABG pCO2 30.1 L POC ABG pO2 ABG pO2 ABG HCO3 ABG Base Excess ABG Hemoglobin Oxyhemoglobin Sodium Potassium Chloride Carbon Dioxide BUN Creatinine Glucose POC Glucose 138 H 156 H Lactic Acid Calcium Ionized Calcium Phosphorus Magnesium Direct Bilirubin AST ALT Alkaline Phosphatase Lactate Dehydrogenase Troponin T C-Reactive Protein Total Protein Albumin Prealbumin Triglycerides Cholesterol LDL Cholesterol Direct HDL Cholesterol 25-OH Vitamin D Total PTH Intact Urine pH Urine WBC (Auto) Urine Creatinine Urine Total Protein Fluid Total Protein Vancomycin Trough Rheumatoid Factor Complement C4 Miscellaneous Test Crossmatch 12/20/16 12/20/16 12/20/16 00:03 06:17 07:07 WBC RBC Hgb Hct MCV MCH MCHC RDW Plt Count Lymph % (Auto) [place] % (Auto) Lymph # [place] # Baso # Seg Neutrophils % Seg Neuts % (Manual) Lymphocytes % (Manual) Monocytes % (Manual) Eosinophils % (Manual) Basophils % (Manual) Nucleated RBC % Seg Neutrophils # Seg Neutrophils # Man Lymphocytes # (Manual) Monocytes # (Manual) Eosinophils # (Manual) Basophils # (Manual) PT INR Fibrinogen dRVVT Confirm Interp Factor V Activity POC ABG pH POC ABG pCO2 POC ABG pO2 ABG pO2 ABG HCO3 ABG Base Excess ABG Hemoglobin Oxyhemoglobin Sodium Potassium Chloride 97.1 L Carbon Dioxide 20 L BUN 97 H Creatinine 1.8 H Glucose 153 H POC Glucose 152 H 175 H Lactic Acid Calcium Ionized Calcium Phosphorus Magnesium Direct Bilirubin AST ALT Alkaline Phosphatase Lactate Dehydrogenase Troponin T C-Reactive Protein Total Protein Albumin Prealbumin Triglycerides Cholesterol LDL Cholesterol Direct HDL Cholesterol 25-OH Vitamin D Total PTH Intact Urine pH Urine WBC (Auto) Urine Creatinine Urine Total Protein Fluid Total Protein Vancomycin Trough Rheumatoid Factor Complement C4 Miscellaneous Test Crossmatch 12/20/16 12/20/16 12/20/16 12:00 17:42 23:53 WBC RBC Hgb Hct MCV MCH MCHC RDW Plt Count Lymph % (Auto) [place] % (Auto) Lymph # [place] # Baso # Seg Neutrophils % Seg Neuts % (Manual) Lymphocytes % (Manual) Monocytes % (Manual) Eosinophils % (Manual) Basophils % (Manual) Nucleated RBC % Seg Neutrophils # Seg Neutrophils # Man Lymphocytes # (Manual) Monocytes # (Manual) Eosinophils # (Manual) Basophils # (Manual) PT INR Fibrinogen dRVVT Confirm Interp Factor V Activity POC ABG pH POC ABG pCO2 POC ABG pO2 ABG pO2 ABG HCO3 ABG Base Excess ABG Hemoglobin Oxyhemoglobin Sodium Potassium Chloride Carbon Dioxide BUN Creatinine Glucose POC Glucose 141 H 156 H 132 H Lactic Acid Calcium Ionized Calcium Phosphorus Magnesium Direct Bilirubin AST ALT Alkaline Phosphatase Lactate Dehydrogenase Troponin T C-Reactive Protein Total Protein Albumin Prealbumin Triglycerides Cholesterol LDL Cholesterol Direct HDL Cholesterol 25-OH Vitamin D Total PTH Intact Urine pH Urine WBC (Auto) Urine Creatinine Urine Total Protein Fluid Total Protein Vancomycin Trough Rheumatoid Factor Complement C4 Miscellaneous Test Crossmatch 12/21/16 12/21/16 12/21/16 05:49 08:50 12:19 WBC RBC Hgb Hct MCV MCH MCHC RDW Plt Count Lymph % (Auto) [place] % (Auto) Lymph # [place] # Baso # Seg Neutrophils % Seg Neuts % (Manual) Lymphocytes % (Manual) Monocytes % (Manual) Eosinophils % (Manual) Basophils % (Manual) Nucleated RBC % Seg Neutrophils # Seg Neutrophils # Man Lymphocytes # (Manual) Monocytes # (Manual) Eosinophils # (Manual) Basophils # (Manual) PT INR Fibrinogen dRVVT Confirm Interp Factor V Activity POC ABG pH POC ABG pCO2 POC ABG pO2 ABG pO2 ABG HCO3 ABG Base Excess ABG Hemoglobin Oxyhemoglobin Sodium Potassium 5.2 H D Chloride Carbon Dioxide BUN 63 H Creatinine Glucose 122 H POC Glucose 132 H 136 H Lactic Acid Calcium 8.3 L Ionized Calcium Phosphorus Magnesium Direct Bilirubin AST ALT Alkaline Phosphatase Lactate Dehydrogenase Troponin T C-Reactive Protein Total Protein Albumin Prealbumin Triglycerides Cholesterol LDL Cholesterol Direct HDL Cholesterol 25-OH Vitamin D Total PTH Intact Urine pH Urine WBC (Auto) Urine Creatinine Urine Total Protein Fluid Total Protein Vancomycin Trough Rheumatoid Factor Complement C4 Miscellaneous Test Crossmatch 12/21/16 12/21/16 12/22/16 17:22 23:58 05:49 WBC RBC Hgb Hct MCV MCH MCHC RDW Plt Count Lymph % (Auto) [place] % (Auto) Lymph # [place] # Baso # Seg Neutrophils % Seg Neuts % (Manual) Lymphocytes % (Manual) Monocytes % (Manual) Eosinophils % (Manual) Basophils % (Manual) Nucleated RBC % Seg Neutrophils # Seg Neutrophils # Man Lymphocytes # (Manual) Monocytes # (Manual) Eosinophils # (Manual) Basophils # (Manual) PT INR Fibrinogen dRVVT Confirm Interp Factor V Activity POC ABG pH POC ABG pCO2 POC ABG pO2 ABG pO2 ABG HCO3 ABG Base Excess ABG Hemoglobin Oxyhemoglobin Sodium Potassium Chloride Carbon Dioxide BUN Creatinine Glucose POC Glucose 135 H 149 H 140 H Lactic Acid Calcium Ionized Calcium Phosphorus Magnesium Direct Bilirubin AST ALT Alkaline Phosphatase Lactate Dehydrogenase Troponin T C-Reactive Protein Total Protein Albumin Prealbumin Triglycerides Cholesterol LDL Cholesterol Direct HDL Cholesterol 25-OH Vitamin D Total PTH Intact Urine pH Urine WBC (Auto) Urine Creatinine Urine Total Protein Fluid Total Protein Vancomycin Trough Rheumatoid Factor Complement C4 Miscellaneous Test Crossmatch 12/22/16 12/22/16 12/22/16 06:10 11:17 17:31 WBC RBC Hgb Hct MCV MCH MCHC RDW Plt Count Lymph % (Auto) [place] % (Auto) Lymph # [place] # Baso # Seg Neutrophils % Seg Neuts % (Manual) Lymphocytes % (Manual) Monocytes % (Manual) Eosinophils % (Manual) Basophils % (Manual) Nucleated RBC % Seg Neutrophils # Seg Neutrophils # Man Lymphocytes # (Manual) Monocytes # (Manual) Eosinophils # (Manual) Basophils # (Manual) PT INR Fibrinogen dRVVT Confirm Interp Factor V Activity POC ABG pH POC ABG pCO2 POC ABG pO2 ABG pO2 ABG HCO3 ABG Base Excess ABG Hemoglobin Oxyhemoglobin Sodium Potassium Chloride Carbon Dioxide BUN 76 H Creatinine 1.5 H Glucose 241 H POC Glucose 193 H 148 H Lactic Acid Calcium Ionized Calcium Phosphorus Magnesium Direct Bilirubin AST ALT Alkaline Phosphatase Lactate Dehydrogenase Troponin T C-Reactive Protein Total Protein Albumin Prealbumin Triglycerides Cholesterol LDL Cholesterol Direct HDL Cholesterol 25-OH Vitamin D Total PTH Intact Urine pH Urine WBC (Auto) Urine Creatinine Urine Total Protein Fluid Total Protein Vancomycin Trough Rheumatoid Factor Complement C4 Miscellaneous Test Crossmatch 12/22/16 12/23/16 12/23/16 23:58 05:00 05:26 WBC RBC Hgb Hct MCV MCH MCHC RDW Plt Count Lymph % (Auto) [place] % (Auto) Lymph # [place] # Baso # Seg Neutrophils % Seg Neuts % (Manual) Lymphocytes % (Manual) Monocytes % (Manual) Eosinophils % (Manual) Basophils % (Manual) Nucleated RBC % Seg Neutrophils # Seg Neutrophils # Man Lymphocytes # (Manual) Monocytes # (Manual) Eosinophils # (Manual) Basophils # (Manual) PT INR Fibrinogen dRVVT Confirm Interp Factor V Activity POC ABG pH POC ABG pCO2 POC ABG pO2 ABG pO2 ABG HCO3 ABG Base Excess ABG Hemoglobin Oxyhemoglobin Sodium Potassium Chloride Carbon Dioxide BUN 49 H Creatinine Glucose 143 H POC Glucose 165 H 154 H Lactic Acid Calcium 8.2 L Ionized Calcium Phosphorus Magnesium 1.60 L Direct Bilirubin AST ALT Alkaline Phosphatase Lactate Dehydrogenase Troponin T C-Reactive Protein Total Protein Albumin Prealbumin Triglycerides Cholesterol LDL Cholesterol Direct HDL Cholesterol 25-OH Vitamin D Total PTH Intact Urine pH Urine WBC (Auto) Urine Creatinine Urine Total Protein Fluid Total Protein Vancomycin Trough Rheumatoid Factor Complement C4 Miscellaneous Test Crossmatch 12/23/16 12/23/16 12/24/16 12:35 17:01 00:01 WBC RBC Hgb Hct MCV MCH MCHC RDW Plt Count Lymph % (Auto) [place] % (Auto) Lymph # [place] # Baso # Seg Neutrophils % Seg Neuts % (Manual) Lymphocytes % (Manual) Monocytes % (Manual) Eosinophils % (Manual) Basophils % (Manual) Nucleated RBC % Seg Neutrophils # Seg Neutrophils # Man Lymphocytes # (Manual) Monocytes # (Manual) Eosinophils # (Manual) Basophils # (Manual) PT INR Fibrinogen dRVVT Confirm Interp Factor V Activity POC ABG pH POC ABG pCO2 POC ABG pO2 ABG pO2 ABG HCO3 ABG Base Excess ABG Hemoglobin Oxyhemoglobin Sodium Potassium Chloride Carbon Dioxide BUN Creatinine Glucose POC Glucose 164 H 149 H 135 H Lactic Acid Calcium Ionized Calcium Phosphorus Magnesium Direct Bilirubin AST ALT Alkaline Phosphatase Lactate Dehydrogenase Troponin T C-Reactive Protein Total Protein Albumin Prealbumin Triglycerides Cholesterol LDL Cholesterol Direct HDL Cholesterol 25-OH Vitamin D Total PTH Intact Urine pH Urine WBC (Auto) Urine Creatinine Urine Total Protein Fluid Total Protein Vancomycin Trough Rheumatoid Factor Complement C4 Miscellaneous Test Crossmatch 12/24/16 12/24/16 12/24/16 05:41 07:01 11:38 WBC RBC Hgb Hct MCV MCH MCHC RDW Plt Count Lymph % (Auto) [place] % (Auto) Lymph # [place] # Baso # Seg Neutrophils % Seg Neuts % (Manual) Lymphocytes % (Manual) Monocytes % (Manual) Eosinophils % (Manual) Basophils % (Manual) Nucleated RBC % Seg Neutrophils # Seg Neutrophils # Man Lymphocytes # (Manual) Monocytes # (Manual) Eosinophils # (Manual) Basophils # (Manual) PT INR Fibrinogen dRVVT Confirm Interp Factor V Activity POC ABG pH POC ABG pCO2 POC ABG pO2 ABG pO2 ABG HCO3 ABG Base Excess ABG Hemoglobin Oxyhemoglobin Sodium Potassium Chloride Carbon Dioxide BUN 72 H Creatinine 1.3 H Glucose 130 H POC Glucose 132 H 156 H Lactic Acid Calcium 8.2 L Ionized Calcium Phosphorus Magnesium Direct Bilirubin AST ALT Alkaline Phosphatase Lactate Dehydrogenase Troponin T C-Reactive Protein Total Protein Albumin Prealbumin Triglycerides Cholesterol LDL Cholesterol Direct HDL Cholesterol 25-OH Vitamin D Total PTH Intact Urine pH Urine WBC (Auto) Urine Creatinine Urine Total Protein Fluid Total Protein Vancomycin Trough Rheumatoid Factor Complement C4 Miscellaneous Test Crossmatch 12/24/16 12/25/16 12/25/16 17:53 00:23 05:45 WBC RBC Hgb Hct MCV MCH MCHC RDW Plt Count Lymph % (Auto) [place] % (Auto) Lymph # [place] # Baso # Seg Neutrophils % Seg Neuts % (Manual) Lymphocytes % (Manual) Monocytes % (Manual) Eosinophils % (Manual) Basophils % (Manual) Nucleated RBC % Seg Neutrophils # Seg Neutrophils # Man Lymphocytes # (Manual) Monocytes # (Manual) Eosinophils # (Manual) Basophils # (Manual) PT INR Fibrinogen dRVVT Confirm Interp Factor V Activity POC ABG pH POC ABG pCO2 POC ABG pO2 ABG pO2 ABG HCO3 ABG Base Excess ABG Hemoglobin Oxyhemoglobin Sodium 146 H Potassium Chloride Carbon Dioxide BUN 51 H Creatinine Glucose 109 H POC Glucose 169 H 117 H Lactic Acid Calcium Ionized Calcium Phosphorus Magnesium Direct Bilirubin AST ALT Alkaline Phosphatase Lactate Dehydrogenase Troponin T C-Reactive Protein Total Protein Albumin Prealbumin Triglycerides Cholesterol LDL Cholesterol Direct HDL Cholesterol 25-OH Vitamin D Total PTH Intact Urine pH Urine WBC (Auto) Urine Creatinine Urine Total Protein Fluid Total Protein Vancomycin Trough Rheumatoid Factor Complement C4 Miscellaneous Test Crossmatch 12/25/16 12/25/16 12/25/16 06:43 11:29 17:14 WBC RBC Hgb Hct MCV MCH MCHC RDW Plt Count Lymph % (Auto) [place] % (Auto) Lymph # [place] # Baso # Seg Neutrophils % Seg Neuts % (Manual) Lymphocytes % (Manual) Monocytes % (Manual) Eosinophils % (Manual) Basophils % (Manual) Nucleated RBC % Seg Neutrophils # Seg Neutrophils # Man Lymphocytes # (Manual) Monocytes # (Manual) Eosinophils # (Manual) Basophils # (Manual) PT INR Fibrinogen dRVVT Confirm Interp Factor V Activity POC ABG pH POC ABG pCO2 POC ABG pO2 ABG pO2 ABG HCO3 ABG Base Excess ABG Hemoglobin Oxyhemoglobin Sodium Potassium Chloride Carbon Dioxide BUN Creatinine Glucose POC Glucose 117 H 128 H 120 H Lactic Acid Calcium Ionized Calcium Phosphorus Magnesium Direct Bilirubin AST ALT Alkaline Phosphatase Lactate Dehydrogenase Troponin T C-Reactive Protein Total Protein Albumin Prealbumin Triglycerides Cholesterol LDL Cholesterol Direct HDL Cholesterol 25-OH Vitamin D Total PTH Intact Urine pH Urine WBC (Auto) Urine Creatinine Urine Total Protein Fluid Total Protein Vancomycin Trough Rheumatoid Factor Complement C4 Miscellaneous Test Crossmatch 12/25/16 12/26/16 12/26/16 23:54 05:40 05:50 WBC 16.2 H RBC 2.32 L Hgb 6.2 L Hct 20.1 L MCV MCH 27 L MCHC RDW 18.6 H Plt Count Lymph % (Auto) [place] % (Auto) Lymph # [place] # Baso # Seg Neutrophils % Seg Neuts % (Manual) Lymphocytes % (Manual) Monocytes % (Manual) Eosinophils % (Manual) Basophils % (Manual) Nucleated RBC % Seg Neutrophils # Seg Neutrophils # Man Lymphocytes # (Manual) Monocytes # (Manual) Eosinophils # (Manual) Basophils # (Manual) PT INR Fibrinogen dRVVT Confirm Interp Factor V Activity POC ABG pH POC ABG pCO2 POC ABG pO2 ABG pO2 ABG HCO3 ABG Base Excess ABG Hemoglobin Oxyhemoglobin Sodium Potassium Chloride Carbon Dioxide BUN Creatinine Glucose POC Glucose 126 H 132 H Lactic Acid Calcium Ionized Calcium Phosphorus Magnesium Direct Bilirubin AST ALT Alkaline Phosphatase Lactate Dehydrogenase Troponin T C-Reactive Protein Total Protein Albumin Prealbumin Triglycerides Cholesterol LDL Cholesterol Direct HDL Cholesterol 25-OH Vitamin D Total PTH Intact Urine pH Urine WBC (Auto) Urine Creatinine Urine Total Protein Fluid Total Protein Vancomycin Trough Rheumatoid Factor Complement C4 Miscellaneous Test Crossmatch 12/26/16 12/26/16 12/26/16 05:50 12:17 12:33 WBC RBC Hgb Hct MCV MCH MCHC RDW Plt Count Lymph % (Auto) [place] % (Auto) Lymph # [place] # Baso # Seg Neutrophils % Seg Neuts % (Manual) Lymphocytes % (Manual) Monocytes % (Manual) Eosinophils % (Manual) Basophils % (Manual) Nucleated RBC % Seg Neutrophils # Seg Neutrophils # Man Lymphocytes # (Manual) Monocytes # (Manual) Eosinophils # (Manual) Basophils # (Manual) PT INR Fibrinogen dRVVT Confirm Interp Factor V Activity POC ABG pH POC ABG pCO2 POC ABG pO2 ABG pO2 ABG HCO3 ABG Base Excess ABG Hemoglobin Oxyhemoglobin Sodium Potassium Chloride Carbon Dioxide BUN 73 H Creatinine 1.3 H Glucose 113 H POC Glucose 117 H Lactic Acid Calcium Ionized Calcium Phosphorus Magnesium Direct Bilirubin AST ALT Alkaline Phosphatase Lactate Dehydrogenase Troponin T C-Reactive Protein Total Protein Albumin Prealbumin Triglycerides Cholesterol LDL Cholesterol Direct HDL Cholesterol 25-OH Vitamin D Total PTH Intact Urine pH Urine WBC (Auto) Urine Creatinine Urine Total Protein Fluid Total Protein Vancomycin Trough Rheumatoid Factor Complement C4 Miscellaneous Test Crossmatch See Detail 12/26/16 12/26/16 12/27/16 20:00 23:21 05:00 WBC RBC Hgb 8.4 L Hct 26.3 L D MCV MCH MCHC RDW Plt Count Lymph % (Auto) [place] % (Auto) Lymph # [place] # Baso # Seg Neutrophils % Seg Neuts % (Manual) Lymphocytes % (Manual) Monocytes % (Manual) Eosinophils % (Manual) Basophils % (Manual) Nucleated RBC % Seg Neutrophils # Seg Neutrophils # Man Lymphocytes # (Manual) Monocytes # (Manual) Eosinophils # (Manual) Basophils # (Manual) PT INR Fibrinogen dRVVT Confirm Interp Factor V Activity POC ABG pH POC ABG pCO2 POC ABG pO2 ABG pO2 ABG HCO3 ABG Base Excess ABG Hemoglobin Oxyhemoglobin Sodium Potassium Chloride Carbon Dioxide BUN 85 H Creatinine 1.6 H Glucose 118 H POC Glucose 124 H Lactic Acid Calcium Ionized Calcium Phosphorus 4.80 H Magnesium Direct Bilirubin AST ALT Alkaline Phosphatase Lactate Dehydrogenase Troponin T C-Reactive Protein Total Protein Albumin Prealbumin Triglycerides Cholesterol LDL Cholesterol Direct HDL Cholesterol 25-OH Vitamin D Total PTH Intact Urine pH Urine WBC (Auto) Urine Creatinine Urine Total Protein Fluid Total Protein Vancomycin Trough Rheumatoid Factor Complement C4 Miscellaneous Test Crossmatch 12/27/16 12/27/16 12/27/16 05:00 05:35 12:24 WBC RBC Hgb 7.6 L Hct 22.8 L MCV MCH MCHC RDW Plt Count Lymph % (Auto) [place] % (Auto) Lymph # [place] # Baso # Seg Neutrophils % Seg Neuts % (Manual) Lymphocytes % (Manual) Monocytes % (Manual) Eosinophils % (Manual) Basophils % (Manual) Nucleated RBC % Seg Neutrophils # Seg Neutrophils # Man Lymphocytes # (Manual) Monocytes # (Manual) Eosinophils # (Manual) Basophils # (Manual) PT INR Fibrinogen dRVVT Confirm Interp Factor V Activity POC ABG pH POC ABG pCO2 POC ABG pO2 ABG pO2 ABG HCO3 ABG Base Excess ABG Hemoglobin Oxyhemoglobin Sodium Potassium Chloride Carbon Dioxide BUN Creatinine Glucose POC Glucose 115 H 131 H Lactic Acid Calcium Ionized Calcium Phosphorus Magnesium Direct Bilirubin AST ALT Alkaline Phosphatase Lactate Dehydrogenase Troponin T C-Reactive Protein Total Protein Albumin Prealbumin Triglycerides Cholesterol LDL Cholesterol Direct HDL Cholesterol 25-OH Vitamin D Total PTH Intact Urine pH Urine WBC (Auto) Urine Creatinine Urine Total Protein Fluid Total Protein Vancomycin Trough Rheumatoid Factor Complement C4 Miscellaneous Test Crossmatch 12/27/16 12/28/16 12/28/16 17:16 00:18 04:00 WBC RBC Hgb Hct MCV MCH MCHC RDW Plt Count Lymph % (Auto) [place] % (Auto) Lymph # [place] # Baso # Seg Neutrophils % Seg Neuts % (Manual) Lymphocytes % (Manual) Monocytes % (Manual) Eosinophils % (Manual) Basophils % (Manual) Nucleated RBC % Seg Neutrophils # Seg Neutrophils # Man Lymphocytes # (Manual) Monocytes # (Manual) Eosinophils # (Manual) Basophils # (Manual) PT INR Fibrinogen dRVVT Confirm Interp Factor V Activity POC ABG pH POC ABG pCO2 POC ABG pO2 ABG pO2 ABG HCO3 ABG Base Excess ABG Hemoglobin Oxyhemoglobin Sodium Potassium 3.5 L Chloride Carbon Dioxide BUN 57 H Creatinine Glucose 118 H POC Glucose 136 H 120 H Lactic Acid Calcium 8.3 L Ionized Calcium Phosphorus Magnesium Direct Bilirubin AST ALT Alkaline Phosphatase Lactate Dehydrogenase Troponin T C-Reactive Protein Total Protein Albumin Prealbumin Triglycerides Cholesterol LDL Cholesterol Direct HDL Cholesterol 25-OH Vitamin D Total PTH Intact Urine pH Urine WBC (Auto) Urine Creatinine Urine Total Protein Fluid Total Protein Vancomycin Trough Rheumatoid Factor Complement C4 Miscellaneous Test Crossmatch 12/28/16 12/28/16 12/28/16 04:00 05:11 08:30 WBC 17.0 H RBC 2.58 L Hgb 7.1 L Hct 22.0 L MCV MCH MCHC RDW 17.6 H Plt Count Lymph % (Auto) 12.2 L [place] % (Auto) Lymph # [place] # 1.1 H Baso # Seg Neutrophils % 80.5 H Seg Neuts % (Manual) Lymphocytes % (Manual) Monocytes % (Manual) Eosinophils % (Manual) Basophils % (Manual) Nucleated RBC % Seg Neutrophils # 13.7 H Seg Neutrophils # Man Lymphocytes # (Manual) Monocytes # (Manual) Eosinophils # (Manual) Basophils # (Manual) PT 16.1 H INR 1.23 H Fibrinogen dRVVT Confirm Interp Factor V Activity POC ABG pH POC ABG pCO2 POC ABG pO2 ABG pO2 ABG HCO3 ABG Base Excess ABG Hemoglobin Oxyhemoglobin Sodium Potassium Chloride Carbon Dioxide BUN Creatinine Glucose POC Glucose 122 H Lactic Acid Calcium Ionized Calcium Phosphorus Magnesium Direct Bilirubin AST ALT Alkaline Phosphatase Lactate Dehydrogenase Troponin T C-Reactive Protein Total Protein Albumin Prealbumin Triglycerides Cholesterol LDL Cholesterol Direct HDL Cholesterol 25-OH Vitamin D Total PTH Intact Urine pH Urine WBC (Auto) Urine Creatinine Urine Total Protein Fluid Total Protein Vancomycin Trough Rheumatoid Factor Complement C4 Miscellaneous Test Crossmatch 12/28/16 12/28/16 12/28/16 12:27 16:32 23:46 WBC RBC Hgb Hct MCV MCH MCHC RDW Plt Count Lymph % (Auto) [place] % (Auto) Lymph # [place] # Baso # Seg Neutrophils % Seg Neuts % (Manual) Lymphocytes % (Manual) Monocytes % (Manual) Eosinophils % (Manual) Basophils % (Manual) Nucleated RBC % Seg Neutrophils # Seg Neutrophils # Man Lymphocytes # (Manual) Monocytes # (Manual) Eosinophils # (Manual) Basophils # (Manual) PT INR Fibrinogen dRVVT Confirm Interp Factor V Activity POC ABG pH POC ABG pCO2 POC ABG pO2 ABG pO2 ABG HCO3 ABG Base Excess ABG Hemoglobin Oxyhemoglobin Sodium Potassium Chloride Carbon Dioxide BUN Creatinine Glucose POC Glucose 127 H 117 H 108 H Lactic Acid Calcium Ionized Calcium Phosphorus Magnesium Direct Bilirubin AST ALT Alkaline Phosphatase Lactate Dehydrogenase Troponin T C-Reactive Protein Total Protein Albumin Prealbumin Triglycerides Cholesterol LDL Cholesterol Direct HDL Cholesterol 25-OH Vitamin D Total PTH Intact Urine pH Urine WBC (Auto) Urine Creatinine Urine Total Protein Fluid Total Protein Vancomycin Trough Rheumatoid Factor Complement C4 Miscellaneous Test Crossmatch 12/29/16 12/29/16 12/29/16 05:15 05:15 05:32 WBC RBC Hgb Hct MCV MCH MCHC RDW Plt Count Lymph % (Auto) [place] % (Auto) Lymph # [place] # Baso # Seg Neutrophils % Seg Neuts % (Manual) Lymphocytes % (Manual) Monocytes % (Manual) Eosinophils % (Manual) Basophils % (Manual) Nucleated RBC % Seg Neutrophils # Seg Neutrophils # Man Lymphocytes # (Manual) Monocytes # (Manual) Eosinophils # (Manual) Basophils # (Manual) PT INR Fibrinogen dRVVT Confirm Interp Factor V Activity POC ABG pH POC ABG pCO2 POC ABG pO2 ABG pO2 ABG HCO3 ABG Base Excess ABG Hemoglobin Oxyhemoglobin Sodium Potassium Chloride Carbon Dioxide BUN 74 H Creatinine 1.6 H Glucose 111 H POC Glucose 123 H Lactic Acid Calcium Ionized Calcium Phosphorus Magnesium Direct Bilirubin AST ALT Alkaline Phosphatase Lactate Dehydrogenase Troponin T C-Reactive Protein Total Protein Albumin Prealbumin 0.110 L Triglycerides Cholesterol LDL Cholesterol Direct HDL Cholesterol 25-OH Vitamin D Total PTH Intact Urine pH Urine WBC (Auto) Urine Creatinine Urine Total Protein Fluid Total Protein Vancomycin Trough Rheumatoid Factor Complement C4 Miscellaneous Test Crossmatch 12/29/16 12/29/16 12/29/16 11:43 13:45 14:00 WBC 13.8 H RBC 2.26 L Hgb 6.3 L Hct 20.4 L MCV MCH MCHC RDW 18.3 H Plt Count Lymph % (Auto) [place] % (Auto) Lymph # [place] # 0.9 H Baso # Seg Neutrophils % 78.6 H Seg Neuts % (Manual) Lymphocytes % (Manual) Monocytes % (Manual) Eosinophils % (Manual) Basophils % (Manual) Nucleated RBC % Seg Neutrophils # 10.8 H Seg Neutrophils # Man Lymphocytes # (Manual) Monocytes # (Manual) Eosinophils # (Manual) Basophils # (Manual) PT INR Fibrinogen dRVVT Confirm Interp Factor V Activity POC ABG pH POC ABG pCO2 POC ABG pO2 ABG pO2 ABG HCO3 ABG Base Excess ABG Hemoglobin Oxyhemoglobin Sodium Potassium Chloride Carbon Dioxide BUN Creatinine Glucose POC Glucose 133 H Lactic Acid Calcium Ionized Calcium Phosphorus Magnesium Direct Bilirubin AST ALT Alkaline Phosphatase Lactate Dehydrogenase Troponin T C-Reactive Protein Total Protein Albumin Prealbumin Triglycerides Cholesterol LDL Cholesterol Direct HDL Cholesterol 25-OH Vitamin D Total PTH Intact Urine pH Urine WBC (Auto) Urine Creatinine Urine Total Protein Fluid Total Protein Vancomycin Trough Rheumatoid Factor Complement C4 Miscellaneous Test Crossmatch See Detail 12/29/16 12/29/16 12/29/16 17:03 23:15 23:22 WBC RBC Hgb 7.3 L Hct 22.3 L MCV MCH MCHC RDW Plt Count Lymph % (Auto) [place] % (Auto) Lymph # [place] # Baso # Seg Neutrophils % Seg Neuts % (Manual) Lymphocytes % (Manual) Monocytes % (Manual) Eosinophils % (Manual) Basophils % (Manual) Nucleated RBC % Seg Neutrophils # Seg Neutrophils # Man Lymphocytes # (Manual) Monocytes # (Manual) Eosinophils # (Manual) Basophils # (Manual) PT INR Fibrinogen dRVVT Confirm Interp Factor V Activity POC ABG pH POC ABG pCO2 POC ABG pO2 ABG pO2 ABG HCO3 ABG Base Excess ABG Hemoglobin Oxyhemoglobin Sodium Potassium Chloride Carbon Dioxide BUN Creatinine Glucose POC Glucose 139 H 120 H Lactic Acid Calcium Ionized Calcium Phosphorus Magnesium Direct Bilirubin AST ALT Alkaline Phosphatase Lactate Dehydrogenase Troponin T C-Reactive Protein Total Protein Albumin Prealbumin Triglycerides Cholesterol LDL Cholesterol Direct HDL Cholesterol 25-OH Vitamin D Total PTH Intact Urine pH Urine WBC (Auto) Urine Creatinine Urine Total Protein Fluid Total Protein Vancomycin Trough Rheumatoid Factor Complement C4 Miscellaneous Test Crossmatch 12/30/16 12/30/16 12/30/16 04:20 04:20 05:43 WBC 15.6 H RBC 2.81 L Hgb 8.0 L Hct 24.0 L MCV MCH MCHC RDW 16.9 H Plt Count Lymph % (Auto) [place] % (Auto) Lymph # [place] # 1.0 H Baso # Seg Neutrophils % 76.2 H Seg Neuts % (Manual) Lymphocytes % (Manual) Monocytes % (Manual) Eosinophils % (Manual) Basophils % (Manual) Nucleated RBC % Seg Neutrophils # 11.9 H Seg Neutrophils # Man Lymphocytes # (Manual) Monocytes # (Manual) Eosinophils # (Manual) Basophils # (Manual) PT INR Fibrinogen dRVVT Confirm Interp Factor V Activity POC ABG pH POC ABG pCO2 POC ABG pO2 ABG pO2 ABG HCO3 ABG Base Excess ABG Hemoglobin Oxyhemoglobin Sodium Potassium Chloride Carbon Dioxide BUN 87 H Creatinine 1.8 H Glucose 119 H POC Glucose 115 H Lactic Acid Calcium Ionized Calcium Phosphorus Magnesium Direct Bilirubin AST ALT Alkaline Phosphatase Lactate Dehydrogenase Troponin T C-Reactive Protein Total Protein Albumin Prealbumin Triglycerides Cholesterol LDL Cholesterol Direct HDL Cholesterol 25-OH Vitamin D Total PTH Intact Urine pH Urine WBC (Auto) Urine Creatinine Urine Total Protein Fluid Total Protein Vancomycin Trough Rheumatoid Factor Complement C4 Miscellaneous Test Crossmatch 12/30/16 12/30/16 12/31/16 17:27 23:21 04:00 WBC RBC Hgb Hct MCV MCH MCHC RDW Plt Count Lymph % (Auto) [place] % (Auto) Lymph # [place] # Baso # Seg Neutrophils % Seg Neuts % (Manual) Lymphocytes % (Manual) Monocytes % (Manual) Eosinophils % (Manual) Basophils % (Manual) Nucleated RBC % Seg Neutrophils # Seg Neutrophils # Man Lymphocytes # (Manual) Monocytes # (Manual) Eosinophils # (Manual) Basophils # (Manual) PT INR Fibrinogen dRVVT Confirm Interp Factor V Activity POC ABG pH POC ABG pCO2 POC ABG pO2 ABG pO2 ABG HCO3 ABG Base Excess ABG Hemoglobin Oxyhemoglobin Sodium Potassium Chloride Carbon Dioxide BUN 59 H Creatinine Glucose 298 H POC Glucose 144 H 125 H Lactic Acid Calcium Ionized Calcium Phosphorus Magnesium Direct Bilirubin AST ALT Alkaline Phosphatase Lactate Dehydrogenase Troponin T C-Reactive Protein Total Protein Albumin Prealbumin Triglycerides Cholesterol LDL Cholesterol Direct HDL Cholesterol 25-OH Vitamin D Total PTH Intact Urine pH Urine WBC (Auto) Urine Creatinine Urine Total Protein Fluid Total Protein Vancomycin Trough Rheumatoid Factor Complement C4 Miscellaneous Test Crossmatch 12/31/16 12/31/16 12/31/16 05:11 12:18 18:17 WBC RBC Hgb Hct MCV MCH MCHC RDW Plt Count Lymph % (Auto) [place] % (Auto) Lymph # [place] # Baso # Seg Neutrophils % Seg Neuts % (Manual) Lymphocytes % (Manual) Monocytes % (Manual) Eosinophils % (Manual) Basophils % (Manual) Nucleated RBC % Seg Neutrophils # Seg Neutrophils # Man Lymphocytes # (Manual) Monocytes # (Manual) Eosinophils # (Manual) Basophils # (Manual) PT INR Fibrinogen dRVVT Confirm Interp Factor V Activity POC ABG pH POC ABG pCO2 POC ABG pO2 ABG pO2 ABG HCO3 ABG Base Excess ABG Hemoglobin Oxyhemoglobin Sodium Potassium Chloride Carbon Dioxide BUN Creatinine Glucose POC Glucose 167 H 125 H 133 H Lactic Acid Calcium Ionized Calcium Phosphorus Magnesium Direct Bilirubin AST ALT Alkaline Phosphatase Lactate Dehydrogenase Troponin T C-Reactive Protein Total Protein Albumin Prealbumin Triglycerides Cholesterol LDL Cholesterol Direct HDL Cholesterol 25-OH Vitamin D Total PTH Intact Urine pH Urine WBC (Auto) Urine Creatinine Urine Total Protein Fluid Total Protein Vancomycin Trough Rheumatoid Factor Complement C4 Miscellaneous Test Crossmatch 12/31/16 01/01/17 01/01/17 23:55 05:00 05:12 WBC RBC Hgb Hct MCV MCH MCHC RDW Plt Count Lymph % (Auto) [place] % (Auto) Lymph # [place] # Baso # Seg Neutrophils % Seg Neuts % (Manual) Lymphocytes % (Manual) Monocytes % (Manual) Eosinophils % (Manual) Basophils % (Manual) Nucleated RBC % Seg Neutrophils # Seg Neutrophils # Man Lymphocytes # (Manual) Monocytes # (Manual) Eosinophils # (Manual) Basophils # (Manual) PT INR Fibrinogen dRVVT Confirm Interp Factor V Activity POC ABG pH POC ABG pCO2 POC ABG pO2 ABG pO2 ABG HCO3 ABG Base Excess ABG Hemoglobin Oxyhemoglobin Sodium Potassium Chloride Carbon Dioxide BUN 76 H Creatinine 1.5 H Glucose 109 H POC Glucose 129 H 129 H Lactic Acid Calcium Ionized Calcium Phosphorus Magnesium Direct Bilirubin AST ALT Alkaline Phosphatase 536 H Lactate Dehydrogenase Troponin T C-Reactive Protein Total Protein Albumin 1.5 L Prealbumin Triglycerides Cholesterol LDL Cholesterol Direct HDL Cholesterol 25-OH Vitamin D Total PTH Intact Urine pH Urine WBC (Auto) Urine Creatinine Urine Total Protein Fluid Total Protein Vancomycin Trough Rheumatoid Factor Complement C4 Miscellaneous Test Crossmatch 01/01/17 01/01/17 01/01/17 12:25 17:01 23:32 WBC RBC Hgb Hct MCV MCH MCHC RDW Plt Count Lymph % (Auto) [place] % (Auto) Lymph # [place] # Baso # Seg Neutrophils % Seg Neuts % (Manual) Lymphocytes % (Manual) Monocytes % (Manual) Eosinophils % (Manual) Basophils % (Manual) Nucleated RBC % Seg Neutrophils # Seg Neutrophils # Man Lymphocytes # (Manual) Monocytes # (Manual) Eosinophils # (Manual) Basophils # (Manual) PT INR Fibrinogen dRVVT Confirm Interp Factor V Activity POC ABG pH POC ABG pCO2 POC ABG pO2 ABG pO2 ABG HCO3 ABG Base Excess ABG Hemoglobin Oxyhemoglobin Sodium Potassium Chloride Carbon Dioxide BUN Creatinine Glucose POC Glucose 140 H 142 H 112 H Lactic Acid Calcium Ionized Calcium Phosphorus Magnesium Direct Bilirubin AST ALT Alkaline Phosphatase Lactate Dehydrogenase Troponin T C-Reactive Protein Total Protein Albumin Prealbumin Triglycerides Cholesterol LDL Cholesterol Direct HDL Cholesterol 25-OH Vitamin D Total PTH Intact Urine pH Urine WBC (Auto) Urine Creatinine Urine Total Protein Fluid Total Protein Vancomycin Trough Rheumatoid Factor Complement C4 Miscellaneous Test Crossmatch 01/02/17 01/02/17 01/02/17 04:56 06:00 11:37 WBC RBC Hgb Hct MCV MCH MCHC RDW Plt Count Lymph % (Auto) [place] % (Auto) Lymph # [place] # Baso # Seg Neutrophils % Seg Neuts % (Manual) Lymphocytes % (Manual) Monocytes % (Manual) Eosinophils % (Manual) Basophils % (Manual) Nucleated RBC % Seg Neutrophils # Seg Neutrophils # Man Lymphocytes # (Manual) Monocytes # (Manual) Eosinophils # (Manual) Basophils # (Manual) PT INR Fibrinogen dRVVT Confirm Interp Factor V Activity POC ABG pH POC ABG pCO2 POC ABG pO2 ABG pO2 ABG HCO3 ABG Base Excess ABG Hemoglobin Oxyhemoglobin Sodium Potassium Chloride Carbon Dioxide BUN 88 H Creatinine 1.7 H Glucose 113 H POC Glucose 136 H 200 H Lactic Acid Calcium Ionized Calcium Phosphorus Magnesium Direct Bilirubin AST ALT Alkaline Phosphatase Lactate Dehydrogenase Troponin T C-Reactive Protein Total Protein Albumin Prealbumin Triglycerides Cholesterol LDL Cholesterol Direct HDL Cholesterol 25-OH Vitamin D Total PTH Intact Urine pH Urine WBC (Auto) Urine Creatinine Urine Total Protein Fluid Total Protein Vancomycin Trough Rheumatoid Factor Complement C4 Miscellaneous Test Crossmatch 01/02/17 01/02/17 01/03/17 17:42 22:52 04:54 WBC RBC Hgb Hct MCV MCH MCHC RDW Plt Count Lymph % (Auto) [place] % (Auto) Lymph # [place] # Baso # Seg Neutrophils % Seg Neuts % (Manual) Lymphocytes % (Manual) Monocytes % (Manual) Eosinophils % (Manual) Basophils % (Manual) Nucleated RBC % Seg Neutrophils # Seg Neutrophils # Man Lymphocytes # (Manual) Monocytes # (Manual) Eosinophils # (Manual) Basophils # (Manual) PT INR Fibrinogen dRVVT Confirm Interp Factor V Activity POC ABG pH POC ABG pCO2 POC ABG pO2 ABG pO2 ABG HCO3 ABG Base Excess ABG Hemoglobin Oxyhemoglobin Sodium Potassium Chloride Carbon Dioxide BUN Creatinine Glucose POC Glucose 112 H 133 H 111 H Lactic Acid Calcium Ionized Calcium Phosphorus Magnesium Direct Bilirubin AST ALT Alkaline Phosphatase Lactate Dehydrogenase Troponin T C-Reactive Protein Total Protein Albumin Prealbumin Triglycerides Cholesterol LDL Cholesterol Direct HDL Cholesterol 25-OH Vitamin D Total PTH Intact Urine pH Urine WBC (Auto) Urine Creatinine Urine Total Protein Fluid Total Protein Vancomycin Trough Rheumatoid Factor Complement C4 Miscellaneous Test Crossmatch 01/03/17 01/03/17 01/03/17 05:00 05:00 14:02 WBC 11.2 H RBC 2.56 L Hgb 7.2 L Hct 22.3 L MCV MCH MCHC RDW 17.3 H Plt Count Lymph % (Auto) [place] % (Auto) 10.0 H Lymph # [place] # 1.1 H Baso # Seg Neutrophils % 70.5 H Seg Neuts % (Manual) Lymphocytes % (Manual) Monocytes % (Manual) Eosinophils % (Manual) Basophils % (Manual) Nucleated RBC % Seg Neutrophils # 7.9 H Seg Neutrophils # Man Lymphocytes # (Manual) Monocytes # (Manual) Eosinophils # (Manual) Basophils # (Manual) PT INR Fibrinogen dRVVT Confirm Interp Factor V Activity POC ABG pH POC ABG pCO2 POC ABG pO2 ABG pO2 ABG HCO3 ABG Base Excess ABG Hemoglobin Oxyhemoglobin Sodium Potassium Chloride Carbon Dioxide BUN 60 H Creatinine 1.3 H Glucose 110 H POC Glucose 119 H Lactic Acid Calcium Ionized Calcium Phosphorus Magnesium Direct Bilirubin AST ALT Alkaline Phosphatase Lactate Dehydrogenase Troponin T C-Reactive Protein Total Protein Albumin Prealbumin Triglycerides Cholesterol LDL Cholesterol Direct HDL Cholesterol 25-OH Vitamin D Total PTH Intact Urine pH Urine WBC (Auto) Urine Creatinine Urine Total Protein Fluid Total Protein Vancomycin Trough Rheumatoid Factor Complement C4 Miscellaneous Test Crossmatch 01/03/17 01/03/17 01/04/17 18:13 23:40 05:57 WBC RBC Hgb Hct MCV MCH MCHC RDW Plt Count Lymph % (Auto) [place] % (Auto) Lymph # [place] # Baso # Seg Neutrophils % Seg Neuts % (Manual) Lymphocytes % (Manual) Monocytes % (Manual) Eosinophils % (Manual) Basophils % (Manual) Nucleated RBC % Seg Neutrophils # Seg Neutrophils # Man Lymphocytes # (Manual) Monocytes # (Manual) Eosinophils # (Manual) Basophils # (Manual) PT INR Fibrinogen dRVVT Confirm Interp Factor V Activity POC ABG pH POC ABG pCO2 POC ABG pO2 ABG pO2 ABG HCO3 ABG Base Excess ABG Hemoglobin Oxyhemoglobin Sodium Potassium Chloride Carbon Dioxide BUN Creatinine Glucose POC Glucose 107 H 129 H 111 H Lactic Acid Calcium Ionized Calcium Phosphorus Magnesium Direct Bilirubin AST ALT Alkaline Phosphatase Lactate Dehydrogenase Troponin T C-Reactive Protein Total Protein Albumin Prealbumin Triglycerides Cholesterol LDL Cholesterol Direct HDL Cholesterol 25-OH Vitamin D Total PTH Intact Urine pH Urine WBC (Auto) Urine Creatinine Urine Total Protein Fluid Total Protein Vancomycin Trough Rheumatoid Factor Complement C4 Miscellaneous Test Crossmatch 01/04/17 01/04/17 01/04/17 12:46 15:27 17:11 WBC RBC Hgb Hct MCV MCH MCHC RDW Plt Count Lymph % (Auto) [place] % (Auto) Lymph # [place] # Baso # Seg Neutrophils % Seg Neuts % (Manual) Lymphocytes % (Manual) Monocytes % (Manual) Eosinophils % (Manual) Basophils % (Manual) Nucleated RBC % Seg Neutrophils # Seg Neutrophils # Man Lymphocytes # (Manual) Monocytes # (Manual) Eosinophils # (Manual) Basophils # (Manual) PT INR Fibrinogen dRVVT Confirm Interp Factor V Activity POC ABG pH POC ABG pCO2 POC ABG pO2 ABG pO2 ABG HCO3 ABG Base Excess ABG Hemoglobin Oxyhemoglobin Sodium Potassium Chloride Carbon Dioxide BUN 43 H Creatinine Glucose 124 H POC Glucose 159 H 125 H Lactic Acid Calcium 8.0 L Ionized Calcium Phosphorus 2.10 L Magnesium Direct Bilirubin AST ALT Alkaline Phosphatase Lactate Dehydrogenase Troponin T C-Reactive Protein Total Protein Albumin Prealbumin Triglycerides Cholesterol LDL Cholesterol Direct HDL Cholesterol 25-OH Vitamin D Total PTH Intact Urine pH Urine WBC (Auto) Urine Creatinine Urine Total Protein Fluid Total Protein Vancomycin Trough Rheumatoid Factor Complement C4 Miscellaneous Test Crossmatch 01/04/17 01/05/17 01/05/17 23:31 04:00 05:46 WBC RBC Hgb Hct MCV MCH MCHC RDW Plt Count Lymph % (Auto) [place] % (Auto) Lymph # [place] # Baso # Seg Neutrophils % Seg Neuts % (Manual) Lymphocytes % (Manual) Monocytes % (Manual) Eosinophils % (Manual) Basophils % (Manual) Nucleated RBC % Seg Neutrophils # Seg Neutrophils # Man Lymphocytes # (Manual) Monocytes # (Manual) Eosinophils # (Manual) Basophils # (Manual) PT INR Fibrinogen dRVVT Confirm Interp Factor V Activity POC ABG pH POC ABG pCO2 POC ABG pO2 ABG pO2 ABG HCO3 ABG Base Excess ABG Hemoglobin Oxyhemoglobin Sodium Potassium Chloride Carbon Dioxide BUN 52 H Creatinine 1.3 H Glucose 113 H POC Glucose 123 H 118 H Lactic Acid Calcium Ionized Calcium Phosphorus 2.40 L Magnesium Direct Bilirubin AST ALT Alkaline Phosphatase Lactate Dehydrogenase Troponin T C-Reactive Protein Total Protein Albumin Prealbumin Triglycerides Cholesterol LDL Cholesterol Direct HDL Cholesterol 25-OH Vitamin D Total PTH Intact Urine pH Urine WBC (Auto) Urine Creatinine Urine Total Protein Fluid Total Protein Vancomycin Trough Rheumatoid Factor Complement C4 Miscellaneous Test Crossmatch 01/05/17 01/05/17 01/05/17 11:41 17:48 23:27 WBC RBC Hgb Hct MCV MCH MCHC RDW Plt Count Lymph % (Auto) [place] % (Auto) Lymph # [place] # Baso # Seg Neutrophils % Seg Neuts % (Manual) Lymphocytes % (Manual) Monocytes % (Manual) Eosinophils % (Manual) Basophils % (Manual) Nucleated RBC % Seg Neutrophils # Seg Neutrophils # Man Lymphocytes # (Manual) Monocytes # (Manual) Eosinophils # (Manual) Basophils # (Manual) PT INR Fibrinogen dRVVT Confirm Interp Factor V Activity POC ABG pH POC ABG pCO2 POC ABG pO2 ABG pO2 ABG HCO3 ABG Base Excess ABG Hemoglobin Oxyhemoglobin Sodium Potassium Chloride Carbon Dioxide BUN Creatinine Glucose POC Glucose 163 H 142 H 155 H Lactic Acid Calcium Ionized Calcium Phosphorus Magnesium Direct Bilirubin AST ALT Alkaline Phosphatase Lactate Dehydrogenase Troponin T C-Reactive Protein Total Protein Albumin Prealbumin Triglycerides Cholesterol LDL Cholesterol Direct HDL Cholesterol 25-OH Vitamin D Total PTH Intact Urine pH Urine WBC (Auto) Urine Creatinine Urine Total Protein Fluid Total Protein Vancomycin Trough Rheumatoid Factor Complement C4 Miscellaneous Test Crossmatch 01/06/17 01/06/17 01/06/17 05:20 07:35 11:18 WBC RBC Hgb Hct MCV MCH MCHC RDW Plt Count Lymph % (Auto) [place] % (Auto) Lymph # [place] # Baso # Seg Neutrophils % Seg Neuts % (Manual) Lymphocytes % (Manual) Monocytes % (Manual) Eosinophils % (Manual) Basophils % (Manual) Nucleated RBC % Seg Neutrophils # Seg Neutrophils # Man Lymphocytes # (Manual) Monocytes # (Manual) Eosinophils # (Manual) Basophils # (Manual) PT INR Fibrinogen dRVVT Confirm Interp Factor V Activity POC ABG pH POC ABG pCO2 POC ABG pO2 ABG pO2 ABG HCO3 ABG Base Excess ABG Hemoglobin Oxyhemoglobin Sodium Potassium Chloride Carbon Dioxide BUN 74 H Creatinine 1.6 H Glucose 135 H POC Glucose 108 H 149 H Lactic Acid Calcium Ionized Calcium Phosphorus Magnesium Direct Bilirubin AST ALT Alkaline Phosphatase Lactate Dehydrogenase Troponin T C-Reactive Protein Total Protein Albumin Prealbumin Triglycerides Cholesterol LDL Cholesterol Direct HDL Cholesterol 25-OH Vitamin D Total PTH Intact Urine pH Urine WBC (Auto) Urine Creatinine Urine Total Protein Fluid Total Protein Vancomycin Trough Rheumatoid Factor Complement C4 Miscellaneous Test Crossmatch 01/06/17 01/07/17 01/07/17 17:17 00:23 05:31 WBC RBC Hgb Hct MCV MCH MCHC RDW Plt Count Lymph % (Auto) [place] % (Auto) Lymph # [place] # Baso # Seg Neutrophils % Seg Neuts % (Manual) Lymphocytes % (Manual) Monocytes % (Manual) Eosinophils % (Manual) Basophils % (Manual) Nucleated RBC % Seg Neutrophils # Seg Neutrophils # Man Lymphocytes # (Manual) Monocytes # (Manual) Eosinophils # (Manual) Basophils # (Manual) PT INR Fibrinogen dRVVT Confirm Interp Factor V Activity POC ABG pH POC ABG pCO2 POC ABG pO2 ABG pO2 ABG HCO3 ABG Base Excess ABG Hemoglobin Oxyhemoglobin Sodium Potassium Chloride Carbon Dioxide BUN Creatinine Glucose POC Glucose 146 H 165 H 153 H Lactic Acid Calcium Ionized Calcium Phosphorus Magnesium Direct Bilirubin AST ALT Alkaline Phosphatase Lactate Dehydrogenase Troponin T C-Reactive Protein Total Protein Albumin Prealbumin Triglycerides Cholesterol LDL Cholesterol Direct HDL Cholesterol 25-OH Vitamin D Total PTH Intact Urine pH Urine WBC (Auto) Urine Creatinine Urine Total Protein Fluid Total Protein Vancomycin Trough Rheumatoid Factor Complement C4 Miscellaneous Test Crossmatch 01/07/17 01/07/17 01/07/17 06:00 11:39 17:11 WBC RBC Hgb Hct MCV MCH MCHC RDW Plt Count Lymph % (Auto) [place] % (Auto) Lymph # [place] # Baso # Seg Neutrophils % Seg Neuts % (Manual) Lymphocytes % (Manual) Monocytes % (Manual) Eosinophils % (Manual) Basophils % (Manual) Nucleated RBC % Seg Neutrophils # Seg Neutrophils # Man Lymphocytes # (Manual) Monocytes # (Manual) Eosinophils # (Manual) Basophils # (Manual) PT INR Fibrinogen dRVVT Confirm Interp Factor V Activity POC ABG pH POC ABG pCO2 POC ABG pO2 ABG pO2 ABG HCO3 ABG Base Excess ABG Hemoglobin Oxyhemoglobin Sodium Potassium Chloride Carbon Dioxide BUN 42 H Creatinine Glucose 175 H POC Glucose 163 H 163 H Lactic Acid Calcium Ionized Calcium Phosphorus 2.40 L D Magnesium Direct Bilirubin AST ALT Alkaline Phosphatase Lactate Dehydrogenase Troponin T C-Reactive Protein Total Protein Albumin Prealbumin Triglycerides Cholesterol LDL Cholesterol Direct HDL Cholesterol 25-OH Vitamin D Total PTH Intact Urine pH Urine WBC (Auto) Urine Creatinine Urine Total Protein Fluid Total Protein Vancomycin Trough Rheumatoid Factor Complement C4 Miscellaneous Test Crossmatch 01/07/17 01/08/17 01/08/17 23:40 05:00 05:00 WBC 27.4 H RBC 2.27 L Hgb 6.1 L Hct 20.4 L MCV MCH 27 L MCHC RDW 17.8 H Plt Count Lymph % (Auto) [place] % (Auto) Lymph # [place] # Baso # Seg Neutrophils % Seg Neuts % (Manual) Lymphocytes % (Manual) Monocytes % (Manual) Eosinophils % (Manual) Basophils % (Manual) Nucleated RBC % Seg Neutrophils # Seg Neutrophils # Man Lymphocytes # (Manual) Monocytes # (Manual) Eosinophils # (Manual) Basophils # (Manual) PT INR Fibrinogen dRVVT Confirm Interp Factor V Activity POC ABG pH POC ABG pCO2 POC ABG pO2 ABG pO2 ABG HCO3 ABG Base Excess ABG Hemoglobin Oxyhemoglobin Sodium Potassium Chloride Carbon Dioxide 16 L D BUN 62 H Creatinine 1.6 H D Glucose 103 H POC Glucose 135 H Lactic Acid Calcium Ionized Calcium Phosphorus Magnesium Direct Bilirubin AST ALT Alkaline Phosphatase Lactate Dehydrogenase Troponin T C-Reactive Protein Total Protein Albumin Prealbumin Triglycerides Cholesterol LDL Cholesterol Direct HDL Cholesterol 25-OH Vitamin D Total PTH Intact Urine pH Urine WBC (Auto) Urine Creatinine Urine Total Protein Fluid Total Protein Vancomycin Trough Rheumatoid Factor Complement C4 Miscellaneous Test Crossmatch 01/08/17 01/08/17 01/08/17 05:25 10:37 10:37 WBC RBC Hgb Hct MCV MCH MCHC RDW Plt Count Lymph % (Auto) [place] % (Auto) Lymph # [place] # Baso # Seg Neutrophils % Seg Neuts % (Manual) Lymphocytes % (Manual) Monocytes % (Manual) Eosinophils % (Manual) Basophils % (Manual) Nucleated RBC % Seg Neutrophils # Seg Neutrophils # Man Lymphocytes # (Manual) Monocytes # (Manual) Eosinophils # (Manual) Basophils # (Manual) PT INR Fibrinogen dRVVT Confirm Interp Factor V Activity POC ABG pH POC ABG pCO2 POC ABG pO2 ABG pO2 ABG HCO3 ABG Base Excess ABG Hemoglobin Oxyhemoglobin Sodium Potassium Chloride Carbon Dioxide BUN Creatinine Glucose POC Glucose 106 H Lactic Acid Calcium Ionized Calcium Phosphorus Magnesium Direct Bilirubin AST ALT Alkaline Phosphatase Lactate Dehydrogenase Troponin T C-Reactive Protein 24.40 H Total Protein Albumin Prealbumin Triglycerides Cholesterol LDL Cholesterol Direct HDL Cholesterol 25-OH Vitamin D Total PTH Intact Urine pH Urine WBC (Auto) Urine Creatinine Urine Total Protein Fluid Total Protein Vancomycin Trough Rheumatoid Factor Complement C4 Miscellaneous Test Crossmatch See Detail 01/08/17 01/08/17 01/08/17 10:37 11:33 15:15 WBC RBC Hgb Hct MCV MCH MCHC RDW Plt Count Lymph % (Auto) [place] % (Auto) Lymph # [place] # Baso # Seg Neutrophils % Seg Neuts % (Manual) Lymphocytes % (Manual) Monocytes % (Manual) Eosinophils % (Manual) Basophils % (Manual) Nucleated RBC % Seg Neutrophils # Seg Neutrophils # Man Lymphocytes # (Manual) Monocytes # (Manual) Eosinophils # (Manual) Basophils # (Manual) PT INR Fibrinogen dRVVT Confirm Interp Factor V Activity POC ABG pH POC ABG pCO2 POC ABG pO2 ABG pO2 ABG HCO3 ABG Base Excess ABG Hemoglobin Oxyhemoglobin Sodium Potassium Chloride Carbon Dioxide BUN Creatinine Glucose POC Glucose 157 H Lactic Acid 9.70 H* 9.10 H* Calcium Ionized Calcium Phosphorus Magnesium Direct Bilirubin AST ALT Alkaline Phosphatase Lactate Dehydrogenase Troponin T C-Reactive Protein Total Protein Albumin Prealbumin Triglycerides Cholesterol LDL Cholesterol Direct HDL Cholesterol 25-OH Vitamin D Total PTH Intact Urine pH Urine WBC (Auto) Urine Creatinine Urine Total Protein Fluid Total Protein Vancomycin Trough Rheumatoid Factor Complement C4 Miscellaneous Test Crossmatch 01/08/17 01/08/17 01/09/17 17:19 23:12 04:40 WBC RBC Hgb Hct MCV MCH MCHC RDW Plt Count Lymph % (Auto) [place] % (Auto) Lymph # [place] # Baso # Seg Neutrophils % Seg Neuts % (Manual) Lymphocytes % (Manual) Monocytes % (Manual) Eosinophils % (Manual) Basophils % (Manual) Nucleated RBC % Seg Neutrophils # Seg Neutrophils # Man Lymphocytes # (Manual) Monocytes # (Manual) Eosinophils # (Manual) Basophils # (Manual) PT INR Fibrinogen dRVVT Confirm Interp Factor V Activity POC ABG pH POC ABG pCO2 POC ABG pO2 ABG pO2 ABG HCO3 ABG Base Excess ABG Hemoglobin Oxyhemoglobin Sodium 147 H Potassium Chloride Carbon Dioxide BUN 82 H Creatinine 1.8 H Glucose 137 H POC Glucose 164 H 157 H Lactic Acid Calcium Ionized Calcium Phosphorus Magnesium Direct Bilirubin AST ALT Alkaline Phosphatase Lactate Dehydrogenase Troponin T C-Reactive Protein Total Protein Albumin Prealbumin Triglycerides Cholesterol LDL Cholesterol Direct HDL Cholesterol 25-OH Vitamin D Total PTH Intact Urine pH Urine WBC (Auto) Urine Creatinine Urine Total Protein Fluid Total Protein Vancomycin Trough Rheumatoid Factor Complement C4 Miscellaneous Test Crossmatch 01/09/17 01/09/17 01/09/17 05:42 08:22 10:57 WBC RBC Hgb Hct MCV MCH MCHC RDW Plt Count Lymph % (Auto) [place] % (Auto) Lymph # [place] # Baso # Seg Neutrophils % Seg Neuts % (Manual) Lymphocytes % (Manual) Monocytes % (Manual) Eosinophils % (Manual) Basophils % (Manual) Nucleated RBC % Seg Neutrophils # Seg Neutrophils # Man Lymphocytes # (Manual) Monocytes # (Manual) Eosinophils # (Manual) Basophils # (Manual) PT INR Fibrinogen dRVVT Confirm Interp Factor V Activity POC ABG pH POC ABG pCO2 POC ABG pO2 ABG pO2 ABG HCO3 ABG Base Excess ABG Hemoglobin Oxyhemoglobin Sodium Potassium Chloride Carbon Dioxide BUN Creatinine Glucose POC Glucose 156 H 122 H Lactic Acid 2.30 H* Calcium Ionized Calcium Phosphorus Magnesium Direct Bilirubin AST ALT Alkaline Phosphatase Lactate Dehydrogenase Troponin T C-Reactive Protein Total Protein Albumin Prealbumin Triglycerides Cholesterol LDL Cholesterol Direct HDL Cholesterol 25-OH Vitamin D Total PTH Intact Urine pH Urine WBC (Auto) Urine Creatinine Urine Total Protein Fluid Total Protein Vancomycin Trough Rheumatoid Factor Complement C4 Miscellaneous Test Crossmatch 01/09/17 01/09/17 01/09/17 13:30 17:14 18:45 WBC RBC Hgb Hct MCV MCH MCHC RDW Plt Count Lymph % (Auto) [place] % (Auto) Lymph # [place] # Baso # Seg Neutrophils % Seg Neuts % (Manual) Lymphocytes % (Manual) Monocytes % (Manual) Eosinophils % (Manual) Basophils % (Manual) Nucleated RBC % Seg Neutrophils # Seg Neutrophils # Man Lymphocytes # (Manual) Monocytes # (Manual) Eosinophils # (Manual) Basophils # (Manual) PT INR Fibrinogen dRVVT Confirm Interp Factor V Activity POC ABG pH POC ABG pCO2 POC ABG pO2 ABG pO2 ABG HCO3 ABG Base Excess ABG Hemoglobin Oxyhemoglobin Sodium Potassium Chloride Carbon Dioxide BUN Creatinine Glucose POC Glucose 127 H Lactic Acid Calcium Ionized Calcium Phosphorus Magnesium Direct Bilirubin AST ALT Alkaline Phosphatase Lactate Dehydrogenase Troponin T C-Reactive Protein 24.70 H Total Protein Albumin Prealbumin Triglycerides Cholesterol LDL Cholesterol Direct HDL Cholesterol 25-OH Vitamin D Total PTH Intact Urine pH Urine WBC (Auto) Urine Creatinine Urine Total Protein Fluid Total Protein Vancomycin Trough Rheumatoid Factor Complement C4 Miscellaneous Test Flexitest 1 H Crossmatch 01/10/17 01/10/17 01/10/17 01:21 04:00 04:00 WBC 18.1 H RBC 3.22 L Hgb 8.8 L Hct 27.0 L D MCV MCH 27 L MCHC RDW 17.0 H Plt Count Lymph % (Auto) [place] % (Auto) Lymph # [place] # Baso # Seg Neutrophils % Seg Neuts % (Manual) Lymphocytes % (Manual) Monocytes % (Manual) Eosinophils % (Manual) Basophils % (Manual) Nucleated RBC % Seg Neutrophils # Seg Neutrophils # Man Lymphocytes # (Manual) Monocytes # (Manual) Eosinophils # (Manual) Basophils # (Manual) PT INR Fibrinogen dRVVT Confirm Interp Factor V Activity POC ABG pH POC ABG pCO2 POC ABG pO2 ABG pO2 ABG HCO3 ABG Base Excess ABG Hemoglobin Oxyhemoglobin Sodium Potassium Chloride Carbon Dioxide BUN 59 H Creatinine 1.3 H Glucose 122 H POC Glucose 160 H Lactic Acid Calcium Ionized Calcium Phosphorus Magnesium Direct Bilirubin AST ALT Alkaline Phosphatase Lactate Dehydrogenase Troponin T C-Reactive Protein Total Protein Albumin Prealbumin Triglycerides Cholesterol LDL Cholesterol Direct HDL Cholesterol 25-OH Vitamin D Total PTH Intact Urine pH Urine WBC (Auto) Urine Creatinine Urine Total Protein Fluid Total Protein Vancomycin Trough Rheumatoid Factor Complement C4 Miscellaneous Test Crossmatch 01/10/17 01/10/17 01/10/17 05:36 12:14 17:55 WBC RBC Hgb Hct MCV MCH MCHC RDW Plt Count Lymph % (Auto) [place] % (Auto) Lymph # [place] # Baso # Seg Neutrophils % Seg Neuts % (Manual) Lymphocytes % (Manual) Monocytes % (Manual) Eosinophils % (Manual) Basophils % (Manual) Nucleated RBC % Seg Neutrophils # Seg Neutrophils # Man Lymphocytes # (Manual) Monocytes # (Manual) Eosinophils # (Manual) Basophils # (Manual) PT INR Fibrinogen dRVVT Confirm Interp Factor V Activity POC ABG pH POC ABG pCO2 POC ABG pO2 ABG pO2 ABG HCO3 ABG Base Excess ABG Hemoglobin Oxyhemoglobin Sodium Potassium Chloride Carbon Dioxide BUN Creatinine Glucose POC Glucose 163 H 120 H 144 H Lactic Acid Calcium Ionized Calcium Phosphorus Magnesium Direct Bilirubin AST ALT Alkaline Phosphatase Lactate Dehydrogenase Troponin T C-Reactive Protein Total Protein Albumin Prealbumin Triglycerides Cholesterol LDL Cholesterol Direct HDL Cholesterol 25-OH Vitamin D Total PTH Intact Urine pH Urine WBC (Auto) Urine Creatinine Urine Total Protein Fluid Total Protein Vancomycin Trough Rheumatoid Factor Complement C4 Miscellaneous Test Crossmatch 01/11/17 01/11/17 01/11/17 00:09 04:00 04:00 WBC 15.8 H RBC 3.04 L Hgb 8.2 L Hct 25.5 L MCV MCH 27 L MCHC RDW 17.3 H Plt Count Lymph % (Auto) [place] % (Auto) Lymph # [place] # Baso # Seg Neutrophils % Seg Neuts % (Manual) Lymphocytes % (Manual) Monocytes % (Manual) Eosinophils % (Manual) Basophils % (Manual) Nucleated RBC % Seg Neutrophils # Seg Neutrophils # Man Lymphocytes # (Manual) Monocytes # (Manual) Eosinophils # (Manual) Basophils # (Manual) PT INR Fibrinogen dRVVT Confirm Interp Factor V Activity POC ABG pH POC ABG pCO2 POC ABG pO2 ABG pO2 ABG HCO3 ABG Base Excess ABG Hemoglobin Oxyhemoglobin Sodium Potassium Chloride Carbon Dioxide BUN 78 H Creatinine 1.6 H Glucose 109 H POC Glucose 122 H Lactic Acid Calcium Ionized Calcium Phosphorus Magnesium Direct Bilirubin AST ALT Alkaline Phosphatase Lactate Dehydrogenase Troponin T C-Reactive Protein Total Protein Albumin Prealbumin Triglycerides Cholesterol LDL Cholesterol Direct HDL Cholesterol 25-OH Vitamin D Total PTH Intact Urine pH Urine WBC (Auto) Urine Creatinine Urine Total Protein Fluid Total Protein Vancomycin Trough Rheumatoid Factor Complement C4 Miscellaneous Test Crossmatch 01/11/17 01/11/17 01/11/17 12:46 18:23 23:42 WBC RBC Hgb Hct MCV MCH MCHC RDW Plt Count Lymph % (Auto) [place] % (Auto) Lymph # [place] # Baso # Seg Neutrophils % Seg Neuts % (Manual) Lymphocytes % (Manual) Monocytes % (Manual) Eosinophils % (Manual) Basophils % (Manual) Nucleated RBC % Seg Neutrophils # Seg Neutrophils # Man Lymphocytes # (Manual) Monocytes # (Manual) Eosinophils # (Manual) Basophils # (Manual) PT INR Fibrinogen dRVVT Confirm Interp Factor V Activity POC ABG pH POC ABG pCO2 POC ABG pO2 ABG pO2 ABG HCO3 ABG Base Excess ABG Hemoglobin Oxyhemoglobin Sodium Potassium Chloride Carbon Dioxide BUN Creatinine Glucose POC Glucose 148 H 125 H 124 H Lactic Acid Calcium Ionized Calcium Phosphorus Magnesium Direct Bilirubin AST ALT Alkaline Phosphatase Lactate Dehydrogenase Troponin T C-Reactive Protein Total Protein Albumin Prealbumin Triglycerides Cholesterol LDL Cholesterol Direct HDL Cholesterol 25-OH Vitamin D Total PTH Intact Urine pH Urine WBC (Auto) Urine Creatinine Urine Total Protein Fluid Total Protein Vancomycin Trough Rheumatoid Factor Complement C4 Miscellaneous Test Crossmatch 01/12/17 01/12/17 01/12/17 04:30 04:30 05:47 WBC 15.8 H RBC 3.31 L Hgb 8.9 L Hct 27.9 L MCV MCH 27 L MCHC RDW 17.4 H Plt Count Lymph % (Auto) [place] % (Auto) Lymph # [place] # Baso # Seg Neutrophils % Seg Neuts % (Manual) Lymphocytes % (Manual) Monocytes % (Manual) Eosinophils % (Manual) Basophils % (Manual) Nucleated RBC % Seg Neutrophils # Seg Neutrophils # Man Lymphocytes # (Manual) Monocytes # (Manual) Eosinophils # (Manual) Basophils # (Manual) PT INR Fibrinogen dRVVT Confirm Interp Factor V Activity POC ABG pH POC ABG pCO2 POC ABG pO2 ABG pO2 ABG HCO3 ABG Base Excess ABG Hemoglobin Oxyhemoglobin Sodium Potassium Chloride Carbon Dioxide BUN 57 H Creatinine Glucose 121 H POC Glucose 110 H Lactic Acid Calcium Ionized Calcium Phosphorus 2.10 L Magnesium Direct Bilirubin AST ALT Alkaline Phosphatase Lactate Dehydrogenase Troponin T C-Reactive Protein Total Protein Albumin Prealbumin Triglycerides Cholesterol LDL Cholesterol Direct HDL Cholesterol 25-OH Vitamin D Total PTH Intact Urine pH Urine WBC (Auto) Urine Creatinine Urine Total Protein Fluid Total Protein Vancomycin Trough Rheumatoid Factor Complement C4 Miscellaneous Test Crossmatch 01/12/17 01/12/17 01/12/17 11:35 17:45 23:14 WBC RBC Hgb Hct MCV MCH MCHC RDW Plt Count Lymph % (Auto) [place] % (Auto) Lymph # [place] # Baso # Seg Neutrophils % Seg Neuts % (Manual) Lymphocytes % (Manual) Monocytes % (Manual) Eosinophils % (Manual) Basophils % (Manual) Nucleated RBC % Seg Neutrophils # Seg Neutrophils # Man Lymphocytes # (Manual) Monocytes # (Manual) Eosinophils # (Manual) Basophils # (Manual) PT INR Fibrinogen dRVVT Confirm Interp Factor V Activity POC ABG pH POC ABG pCO2 POC ABG pO2 ABG pO2 ABG HCO3 ABG Base Excess ABG Hemoglobin Oxyhemoglobin Sodium Potassium Chloride Carbon Dioxide BUN Creatinine Glucose POC Glucose 146 H 117 H 123 H Lactic Acid Calcium Ionized Calcium Phosphorus Magnesium Direct Bilirubin AST ALT Alkaline Phosphatase Lactate Dehydrogenase Troponin T C-Reactive Protein Total Protein Albumin Prealbumin Triglycerides Cholesterol LDL Cholesterol Direct HDL Cholesterol 25-OH Vitamin D Total PTH Intact Urine pH Urine WBC (Auto) Urine Creatinine Urine Total Protein Fluid Total Protein Vancomycin Trough Rheumatoid Factor Complement C4 Miscellaneous Test Crossmatch 01/13/17 01/13/17 01/13/17 05:32 06:00 12:10 WBC RBC Hgb Hct MCV MCH MCHC RDW Plt Count Lymph % (Auto) [place] % (Auto) Lymph # [place] # Baso # Seg Neutrophils % Seg Neuts % (Manual) Lymphocytes % (Manual) Monocytes % (Manual) Eosinophils % (Manual) Basophils % (Manual) Nucleated RBC % Seg Neutrophils # Seg Neutrophils # Man Lymphocytes # (Manual) Monocytes # (Manual) Eosinophils # (Manual) Basophils # (Manual) PT INR Fibrinogen dRVVT Confirm Interp Factor V Activity POC ABG pH POC ABG pCO2 POC ABG pO2 ABG pO2 ABG HCO3 ABG Base Excess ABG Hemoglobin Oxyhemoglobin Sodium Potassium Chloride Carbon Dioxide BUN 80 H Creatinine 1.4 H Glucose 106 H POC Glucose 106 H Lactic Acid Calcium Ionized Calcium Phosphorus Magnesium Direct Bilirubin AST ALT Alkaline Phosphatase Lactate Dehydrogenase Troponin T C-Reactive Protein Total Protein Albumin Prealbumin Triglycerides Cholesterol LDL Cholesterol Direct HDL Cholesterol 25-OH Vitamin D Total PTH Intact Urine pH Urine WBC (Auto) Urine Creatinine Urine Total Protein Fluid Total Protein 3.0 L Vancomycin Trough Rheumatoid Factor Complement C4 Miscellaneous Test Crossmatch 01/13/17 01/13/17 01/13/17 12:17 15:50 17:30 WBC RBC Hgb Hct MCV MCH MCHC RDW Plt Count Lymph % (Auto) [place] % (Auto) Lymph # [place] # Baso # Seg Neutrophils % Seg Neuts % (Manual) Lymphocytes % (Manual) Monocytes % (Manual) Eosinophils % (Manual) Basophils % (Manual) Nucleated RBC % Seg Neutrophils # Seg Neutrophils # Man Lymphocytes # (Manual) Monocytes # (Manual) Eosinophils # (Manual) Basophils # (Manual) PT 15.4 H INR 1.16 H Fibrinogen dRVVT Confirm Interp Factor V Activity POC ABG pH POC ABG pCO2 POC ABG pO2 ABG pO2 ABG HCO3 ABG Base Excess ABG Hemoglobin Oxyhemoglobin Sodium Potassium Chloride Carbon Dioxide BUN Creatinine Glucose POC Glucose 168 H 110 H Lactic Acid Calcium Ionized Calcium Phosphorus Magnesium Direct Bilirubin AST ALT Alkaline Phosphatase Lactate Dehydrogenase Troponin T C-Reactive Protein Total Protein Albumin Prealbumin Triglycerides Cholesterol LDL Cholesterol Direct HDL Cholesterol 25-OH Vitamin D Total PTH Intact Urine pH Urine WBC (Auto) Urine Creatinine Urine Total Protein Fluid Total Protein Vancomycin Trough Rheumatoid Factor Complement C4 Miscellaneous Test Crossmatch 01/13/17 01/14/17 01/14/17 23:42 05:24 05:30 WBC RBC Hgb Hct MCV MCH MCHC RDW Plt Count Lymph % (Auto) [place] % (Auto) Lymph # [place] # Baso # Seg Neutrophils % Seg Neuts % (Manual) Lymphocytes % (Manual) Monocytes % (Manual) Eosinophils % (Manual) Basophils % (Manual) Nucleated RBC % Seg Neutrophils # Seg Neutrophils # Man Lymphocytes # (Manual) Monocytes # (Manual) Eosinophils # (Manual) Basophils # (Manual) PT INR Fibrinogen dRVVT Confirm Interp Factor V Activity POC ABG pH POC ABG pCO2 POC ABG pO2 ABG pO2 ABG HCO3 ABG Base Excess ABG Hemoglobin Oxyhemoglobin Sodium Potassium Chloride Carbon Dioxide BUN 58 H Creatinine Glucose 114 H POC Glucose 155 H 121 H Lactic Acid Calcium Ionized Calcium Phosphorus Magnesium Direct Bilirubin AST ALT Alkaline Phosphatase Lactate Dehydrogenase Troponin T C-Reactive Protein Total Protein Albumin Prealbumin Triglycerides Cholesterol LDL Cholesterol Direct HDL Cholesterol 25-OH Vitamin D Total PTH Intact Urine pH Urine WBC (Auto) Urine Creatinine Urine Total Protein Fluid Total Protein Vancomycin Trough Rheumatoid Factor Complement C4 Miscellaneous Test Crossmatch 01/14/17 01/14/17 01/15/17 12:48 17:36 00:15 WBC RBC Hgb Hct MCV MCH MCHC RDW Plt Count Lymph % (Auto) [place] % (Auto) Lymph # [place] # Baso # Seg Neutrophils % Seg Neuts % (Manual) Lymphocytes % (Manual) Monocytes % (Manual) Eosinophils % (Manual) Basophils % (Manual) Nucleated RBC % Seg Neutrophils # Seg Neutrophils # Man Lymphocytes # (Manual) Monocytes # (Manual) Eosinophils # (Manual) Basophils # (Manual) PT INR Fibrinogen dRVVT Confirm Interp Factor V Activity POC ABG pH POC ABG pCO2 POC ABG pO2 ABG pO2 ABG HCO3 ABG Base Excess ABG Hemoglobin Oxyhemoglobin Sodium Potassium Chloride Carbon Dioxide BUN Creatinine Glucose POC Glucose 130 H 135 H 132 H Lactic Acid Calcium Ionized Calcium Phosphorus Magnesium Direct Bilirubin AST ALT Alkaline Phosphatase Lactate Dehydrogenase Troponin T C-Reactive Protein Total Protein Albumin Prealbumin Triglycerides Cholesterol LDL Cholesterol Direct HDL Cholesterol 25-OH Vitamin D Total PTH Intact Urine pH Urine WBC (Auto) Urine Creatinine Urine Total Protein Fluid Total Protein Vancomycin Trough Rheumatoid Factor Complement C4 Miscellaneous Test Crossmatch 01/15/17 01/15/17 01/15/17 05:01 11:55 12:45 WBC 16.2 H RBC 3.00 L Hgb 8.1 L Hct 25.4 L MCV MCH 27 L MCHC RDW 17.6 H Plt Count Lymph % (Auto) 11.7 L [place] % (Auto) 7.8 H Lymph # [place] # 1.3 H Baso # Seg Neutrophils % 80.1 H Seg Neuts % (Manual) Lymphocytes % (Manual) Monocytes % (Manual) Eosinophils % (Manual) Basophils % (Manual) Nucleated RBC % Seg Neutrophils # 13.0 H Seg Neutrophils # Man Lymphocytes # (Manual) Monocytes # (Manual) Eosinophils # (Manual) Basophils # (Manual) PT INR Fibrinogen dRVVT Confirm Interp Factor V Activity POC ABG pH POC ABG pCO2 POC ABG pO2 ABG pO2 ABG HCO3 ABG Base Excess ABG Hemoglobin Oxyhemoglobin Sodium Potassium Chloride Carbon Dioxide BUN Creatinine Glucose POC Glucose 126 H 125 H Lactic Acid Calcium Ionized Calcium Phosphorus Magnesium Direct Bilirubin AST ALT Alkaline Phosphatase Lactate Dehydrogenase Troponin T C-Reactive Protein Total Protein Albumin Prealbumin Triglycerides Cholesterol LDL Cholesterol Direct HDL Cholesterol 25-OH Vitamin D Total PTH Intact Urine pH Urine WBC (Auto) Urine Creatinine Urine Total Protein Fluid Total Protein Vancomycin Trough Rheumatoid Factor Complement C4 Miscellaneous Test Crossmatch 01/15/17 01/15/17 01/15/17 12:45 17:31 23:39 WBC RBC Hgb Hct MCV MCH MCHC RDW Plt Count Lymph % (Auto) [place] % (Auto) Lymph # [place] # Baso # Seg Neutrophils % Seg Neuts % (Manual) Lymphocytes % (Manual) Monocytes % (Manual) Eosinophils % (Manual) Basophils % (Manual) Nucleated RBC % Seg Neutrophils # Seg Neutrophils # Man Lymphocytes # (Manual) Monocytes # (Manual) Eosinophils # (Manual) Basophils # (Manual) PT INR Fibrinogen dRVVT Confirm Interp Factor V Activity POC ABG pH POC ABG pCO2 POC ABG pO2 ABG pO2 ABG HCO3 ABG Base Excess ABG Hemoglobin Oxyhemoglobin Sodium 136 L Potassium Chloride Carbon Dioxide BUN 87 H Creatinine 1.7 H Glucose 108 H POC Glucose 129 H 112 H Lactic Acid Calcium Ionized Calcium Phosphorus Magnesium Direct Bilirubin AST ALT Alkaline Phosphatase Lactate Dehydrogenase Troponin T C-Reactive Protein Total Protein Albumin Prealbumin Triglycerides Cholesterol LDL Cholesterol Direct HDL Cholesterol 25-OH Vitamin D Total PTH Intact Urine pH Urine WBC (Auto) Urine Creatinine Urine Total Protein Fluid Total Protein Vancomycin Trough Rheumatoid Factor Complement C4 Miscellaneous Test Crossmatch 01/16/17 01/16/17 01/16/17 05:23 11:42 12:32 WBC RBC Hgb Hct MCV MCH MCHC RDW Plt Count Lymph % (Auto) [place] % (Auto) Lymph # [place] # Baso # Seg Neutrophils % Seg Neuts % (Manual) Lymphocytes % (Manual) Monocytes % (Manual) Eosinophils % (Manual) Basophils % (Manual) Nucleated RBC % Seg Neutrophils # Seg Neutrophils # Man Lymphocytes # (Manual) Monocytes # (Manual) Eosinophils # (Manual) Basophils # (Manual) PT INR Fibrinogen dRVVT Confirm Interp Factor V Activity POC ABG pH 7.499 H POC ABG pCO2 30.9 L POC ABG pO2 51 L ABG pO2 ABG HCO3 ABG Base Excess ABG Hemoglobin Oxyhemoglobin Sodium Potassium Chloride Carbon Dioxide BUN Creatinine Glucose POC Glucose 118 H 133 H Lactic Acid Calcium Ionized Calcium Phosphorus Magnesium Direct Bilirubin AST ALT Alkaline Phosphatase Lactate Dehydrogenase Troponin T C-Reactive Protein Total Protein Albumin Prealbumin Triglycerides Cholesterol LDL Cholesterol Direct HDL Cholesterol 25-OH Vitamin D Total PTH Intact Urine pH Urine WBC (Auto) Urine Creatinine Urine Total Protein Fluid Total Protein Vancomycin Trough Rheumatoid Factor Complement C4 Miscellaneous Test Crossmatch 01/16/17 01/16/17 01/16/17 17:52 23:57 Unknown WBC RBC Hgb Hct MCV MCH MCHC RDW Plt Count Lymph % (Auto) [place] % (Auto) Lymph # [place] # Baso # Seg Neutrophils % Seg Neuts % (Manual) Lymphocytes % (Manual) Monocytes % (Manual) Eosinophils % (Manual) Basophils % (Manual) Nucleated RBC % Seg Neutrophils # Seg Neutrophils # Man Lymphocytes # (Manual) Monocytes # (Manual) Eosinophils # (Manual) Basophils # (Manual) PT INR Fibrinogen dRVVT Confirm Interp Factor V Activity POC ABG pH POC ABG pCO2 POC ABG pO2 ABG pO2 ABG HCO3 ABG Base Excess ABG Hemoglobin Oxyhemoglobin Sodium 135 L Potassium Chloride Carbon Dioxide BUN 101 H Creatinine 1.8 H Glucose 117 H POC Glucose 130 H 143 H Lactic Acid Calcium Ionized Calcium Phosphorus 5.80 H Magnesium Direct Bilirubin AST ALT Alkaline Phosphatase Lactate Dehydrogenase Troponin T C-Reactive Protein Total Protein Albumin Prealbumin Triglycerides Cholesterol LDL Cholesterol Direct HDL Cholesterol 25-OH Vitamin D Total PTH Intact Urine pH Urine WBC (Auto) Urine Creatinine Urine Total Protein Fluid Total Protein Vancomycin Trough Rheumatoid Factor Complement C4 Miscellaneous Test Crossmatch 01/17/17 01/17/17 01/17/17 05:30 05:46 11:49 WBC RBC Hgb Hct MCV MCH MCHC RDW Plt Count Lymph % (Auto) [place] % (Auto) Lymph # [place] # Baso # Seg Neutrophils % Seg Neuts % (Manual) Lymphocytes % (Manual) Monocytes % (Manual) Eosinophils % (Manual) Basophils % (Manual) Nucleated RBC % Seg Neutrophils # Seg Neutrophils # Man Lymphocytes # (Manual) Monocytes # (Manual) Eosinophils # (Manual) Basophils # (Manual) PT INR Fibrinogen dRVVT Confirm Interp Factor V Activity POC ABG pH POC ABG pCO2 POC ABG pO2 ABG pO2 ABG HCO3 ABG Base Excess ABG Hemoglobin Oxyhemoglobin Sodium 134 L Potassium Chloride 95.8 L Carbon Dioxide BUN 66 H Creatinine 1.3 H Glucose 138 H POC Glucose 147 H 124 H Lactic Acid Calcium Ionized Calcium Phosphorus Magnesium Direct Bilirubin AST ALT Alkaline Phosphatase 254 H Lactate Dehydrogenase Troponin T C-Reactive Protein Total Protein Albumin 1.3 L Prealbumin Triglycerides Cholesterol LDL Cholesterol Direct HDL Cholesterol 25-OH Vitamin D Total PTH Intact Urine pH Urine WBC (Auto) Urine Creatinine Urine Total Protein Fluid Total Protein Vancomycin Trough Rheumatoid Factor Complement C4 Miscellaneous Test Crossmatch 01/17/17 01/17/17 01/18/17 17:30 23:41 05:15 WBC RBC Hgb Hct MCV MCH MCHC RDW Plt Count Lymph % (Auto) [place] % (Auto) Lymph # [place] # Baso # Seg Neutrophils % Seg Neuts % (Manual) Lymphocytes % (Manual) Monocytes % (Manual) Eosinophils % (Manual) Basophils % (Manual) Nucleated RBC % Seg Neutrophils # Seg Neutrophils # Man Lymphocytes # (Manual) Monocytes # (Manual) Eosinophils # (Manual) Basophils # (Manual) PT INR Fibrinogen dRVVT Confirm Interp Factor V Activity POC ABG pH POC ABG pCO2 POC ABG pO2 ABG pO2 ABG HCO3 ABG Base Excess ABG Hemoglobin Oxyhemoglobin Sodium Potassium Chloride Carbon Dioxide BUN 89 H Creatinine 1.7 H Glucose 118 H POC Glucose 137 H 119 H Lactic Acid Calcium Ionized Calcium Phosphorus Magnesium Direct Bilirubin AST ALT Alkaline Phosphatase Lactate Dehydrogenase Troponin T C-Reactive Protein Total Protein Albumin Prealbumin Triglycerides Cholesterol LDL Cholesterol Direct HDL Cholesterol 25-OH Vitamin D Total PTH Intact Urine pH Urine WBC (Auto) Urine Creatinine Urine Total Protein Fluid Total Protein Vancomycin Trough Rheumatoid Factor Complement C4 Miscellaneous Test Crossmatch 01/18/17 01/18/17 01/18/17 05:19 12:16 18:11 WBC RBC Hgb Hct MCV MCH MCHC RDW Plt Count Lymph % (Auto) [place] % (Auto) Lymph # [place] # Baso # Seg Neutrophils % Seg Neuts % (Manual) Lymphocytes % (Manual) Monocytes % (Manual) Eosinophils % (Manual) Basophils % (Manual) Nucleated RBC % Seg Neutrophils # Seg Neutrophils # Man Lymphocytes # (Manual) Monocytes # (Manual) Eosinophils # (Manual) Basophils # (Manual) PT INR Fibrinogen dRVVT Confirm Interp Factor V Activity POC ABG pH POC ABG pCO2 POC ABG pO2 ABG pO2 ABG HCO3 ABG Base Excess ABG Hemoglobin Oxyhemoglobin Sodium Potassium Chloride Carbon Dioxide BUN Creatinine Glucose POC Glucose 134 H 188 H 113 H Lactic Acid Calcium Ionized Calcium Phosphorus Magnesium Direct Bilirubin AST ALT Alkaline Phosphatase Lactate Dehydrogenase Troponin T C-Reactive Protein Total Protein Albumin Prealbumin Triglycerides Cholesterol LDL Cholesterol Direct HDL Cholesterol 25-OH Vitamin D Total PTH Intact Urine pH Urine WBC (Auto) Urine Creatinine Urine Total Protein Fluid Total Protein Vancomycin Trough Rheumatoid Factor Complement C4 Miscellaneous Test Crossmatch 01/19/17 01/19/17 01/19/17 00:00 05:30 05:36 WBC RBC Hgb Hct MCV MCH MCHC RDW Plt Count Lymph % (Auto) [place] % (Auto) Lymph # [place] # Baso # Seg Neutrophils % Seg Neuts % (Manual) Lymphocytes % (Manual) Monocytes % (Manual) Eosinophils % (Manual) Basophils % (Manual) Nucleated RBC % Seg Neutrophils # Seg Neutrophils # Man Lymphocytes # (Manual) Monocytes # (Manual) Eosinophils # (Manual) Basophils # (Manual) PT INR Fibrinogen dRVVT Confirm Interp Factor V Activity POC ABG pH POC ABG pCO2 POC ABG pO2 ABG pO2 ABG HCO3 ABG Base Excess ABG Hemoglobin Oxyhemoglobin Sodium Potassium Chloride Carbon Dioxide BUN 70 H Creatinine 1.5 H Glucose 121 H POC Glucose 137 H 155 H Lactic Acid Calcium Ionized Calcium Phosphorus 2.10 L D Magnesium Direct Bilirubin AST ALT Alkaline Phosphatase Lactate Dehydrogenase Troponin T C-Reactive Protein Total Protein Albumin Prealbumin Triglycerides Cholesterol LDL Cholesterol Direct HDL Cholesterol 25-OH Vitamin D Total PTH Intact Urine pH Urine WBC (Auto) Urine Creatinine Urine Total Protein Fluid Total Protein Vancomycin Trough Rheumatoid Factor Complement C4 Miscellaneous Test Crossmatch 01/19/17 01/19/17 01/19/17 11:59 15:32 17:57 WBC RBC Hgb Hct MCV MCH MCHC RDW Plt Count Lymph % (Auto) [place] % (Auto) Lymph # [place] # Baso # Seg Neutrophils % Seg Neuts % (Manual) Lymphocytes % (Manual) Monocytes % (Manual) Eosinophils % (Manual) Basophils % (Manual) Nucleated RBC % Seg Neutrophils # Seg Neutrophils # Man Lymphocytes # (Manual) Monocytes # (Manual) Eosinophils # (Manual) Basophils # (Manual) PT INR Fibrinogen dRVVT Confirm Interp Factor V Activity POC ABG pH POC ABG pCO2 33.1 L POC ABG pO2 76 L ABG pO2 ABG HCO3 ABG Base Excess ABG Hemoglobin Oxyhemoglobin Sodium Potassium Chloride Carbon Dioxide BUN Creatinine Glucose POC Glucose 156 H 129 H Lactic Acid Calcium Ionized Calcium Phosphorus Magnesium Direct Bilirubin AST ALT Alkaline Phosphatase Lactate Dehydrogenase Troponin T C-Reactive Protein Total Protein Albumin Prealbumin Triglycerides Cholesterol LDL Cholesterol Direct HDL Cholesterol 25-OH Vitamin D Total PTH Intact Urine pH Urine WBC (Auto) Urine Creatinine Urine Total Protein Fluid Total Protein Vancomycin Trough Rheumatoid Factor Complement C4 Miscellaneous Test Crossmatch 01/19/17 01/20/17 01/20/17 23:49 04:00 05:21 WBC RBC Hgb Hct MCV MCH MCHC RDW Plt Count Lymph % (Auto) [place] % (Auto) Lymph # [place] # Baso # Seg Neutrophils % Seg Neuts % (Manual) Lymphocytes % (Manual) Monocytes % (Manual) Eosinophils % (Manual) Basophils % (Manual) Nucleated RBC % Seg Neutrophils # Seg Neutrophils # Man Lymphocytes # (Manual) Monocytes # (Manual) Eosinophils # (Manual) Basophils # (Manual) PT INR Fibrinogen dRVVT Confirm Interp Factor V Activity POC ABG pH POC ABG pCO2 POC ABG pO2 ABG pO2 ABG HCO3 ABG Base Excess ABG Hemoglobin Oxyhemoglobin Sodium Potassium Chloride Carbon Dioxide BUN 96 H Creatinine 1.9 H Glucose 106 H POC Glucose 125 H 130 H Lactic Acid Calcium Ionized Calcium Phosphorus 2.40 L Magnesium Direct Bilirubin AST ALT Alkaline Phosphatase Lactate Dehydrogenase Troponin T C-Reactive Protein Total Protein Albumin Prealbumin Triglycerides Cholesterol LDL Cholesterol Direct HDL Cholesterol 25-OH Vitamin D Total PTH Intact Urine pH Urine WBC (Auto) Urine Creatinine Urine Total Protein Fluid Total Protein Vancomycin Trough Rheumatoid Factor Complement C4 Miscellaneous Test Crossmatch 01/20/17 01/20/17 01/20/17 11:58 12:17 17:26 WBC RBC Hgb Hct MCV MCH MCHC RDW Plt Count Lymph % (Auto) [place] % (Auto) Lymph # [place] # Baso # Seg Neutrophils % Seg Neuts % (Manual) Lymphocytes % (Manual) Monocytes % (Manual) Eosinophils % (Manual) Basophils % (Manual) Nucleated RBC % Seg Neutrophils # Seg Neutrophils # Man Lymphocytes # (Manual) Monocytes # (Manual) Eosinophils # (Manual) Basophils # (Manual) PT INR Fibrinogen dRVVT Confirm Interp Factor V Activity POC ABG pH POC ABG pCO2 POC ABG pO2 70 L ABG pO2 ABG HCO3 ABG Base Excess ABG Hemoglobin Oxyhemoglobin Sodium Potassium Chloride Carbon Dioxide BUN Creatinine Glucose POC Glucose 118 H 154 H Lactic Acid Calcium Ionized Calcium Phosphorus Magnesium Direct Bilirubin AST ALT Alkaline Phosphatase Lactate Dehydrogenase Troponin T C-Reactive Protein Total Protein Albumin Prealbumin Triglycerides Cholesterol LDL Cholesterol Direct HDL Cholesterol 25-OH Vitamin D Total PTH Intact Urine pH Urine WBC (Auto) Urine Creatinine Urine Total Protein Fluid Total Protein Vancomycin Trough Rheumatoid Factor Complement C4 Miscellaneous Test Crossmatch 01/21/17 01/21/17 01/21/17 04:00 04:56 11:46 WBC RBC Hgb Hct MCV MCH MCHC RDW Plt Count Lymph % (Auto) [place] % (Auto) Lymph # [place] # Baso # Seg Neutrophils % Seg Neuts % (Manual) Lymphocytes % (Manual) Monocytes % (Manual) Eosinophils % (Manual) Basophils % (Manual) Nucleated RBC % Seg Neutrophils # Seg Neutrophils # Man Lymphocytes # (Manual) Monocytes # (Manual) Eosinophils # (Manual) Basophils # (Manual) PT INR Fibrinogen dRVVT Confirm Interp Factor V Activity POC ABG pH POC ABG pCO2 POC ABG pO2 ABG pO2 ABG HCO3 ABG Base Excess ABG Hemoglobin Oxyhemoglobin Sodium Potassium 3.5 L Chloride 97.4 L Carbon Dioxide BUN 66 H Creatinine 1.4 H Glucose POC Glucose 116 H 106 H Lactic Acid Calcium Ionized Calcium Phosphorus 2.10 L Magnesium Direct Bilirubin AST ALT Alkaline Phosphatase Lactate Dehydrogenase Troponin T C-Reactive Protein Total Protein Albumin Prealbumin Triglycerides Cholesterol LDL Cholesterol Direct HDL Cholesterol 25-OH Vitamin D Total PTH Intact Urine pH Urine WBC (Auto) Urine Creatinine Urine Total Protein Fluid Total Protein Vancomycin Trough Rheumatoid Factor Complement C4 Miscellaneous Test Crossmatch 01/21/17 01/21/17 01/22/17 17:25 23:49 05:35 WBC RBC Hgb Hct MCV MCH MCHC RDW Plt Count Lymph % (Auto) [place] % (Auto) Lymph # [place] # Baso # Seg Neutrophils % Seg Neuts % (Manual) Lymphocytes % (Manual) Monocytes % (Manual) Eosinophils % (Manual) Basophils % (Manual) Nucleated RBC % Seg Neutrophils # Seg Neutrophils # Man Lymphocytes # (Manual) Monocytes # (Manual) Eosinophils # (Manual) Basophils # (Manual) PT INR Fibrinogen dRVVT Confirm Interp Factor V Activity POC ABG pH POC ABG pCO2 POC ABG pO2 ABG pO2 ABG HCO3 ABG Base Excess ABG Hemoglobin Oxyhemoglobin Sodium Potassium Chloride Carbon Dioxide BUN Creatinine Glucose POC Glucose 106 H 133 H 107 H Lactic Acid Calcium Ionized Calcium Phosphorus Magnesium Direct Bilirubin AST ALT Alkaline Phosphatase Lactate Dehydrogenase Troponin T C-Reactive Protein Total Protein Albumin Prealbumin Triglycerides Cholesterol LDL Cholesterol Direct HDL Cholesterol 25-OH Vitamin D Total PTH Intact Urine pH Urine WBC (Auto) Urine Creatinine Urine Total Protein Fluid Total Protein Vancomycin Trough Rheumatoid Factor Complement C4 Miscellaneous Test Crossmatch 01/22/17 01/22/17 01/22/17 07:20 07:20 11:31 WBC RBC 2.75 L Hgb 7.5 L Hct 22.7 L MCV MCH 27 L MCHC RDW 17.5 H Plt Count Lymph % (Auto) [place] % (Auto) Lymph # [place] # Baso # Seg Neutrophils % Seg Neuts % (Manual) Lymphocytes % (Manual) Monocytes % (Manual) Eosinophils % (Manual) Basophils % (Manual) Nucleated RBC % Seg Neutrophils # Seg Neutrophils # Man Lymphocytes # (Manual) Monocytes # (Manual) Eosinophils # (Manual) Basophils # (Manual) PT INR Fibrinogen dRVVT Confirm Interp Factor V Activity POC ABG pH POC ABG pCO2 POC ABG pO2 ABG pO2 ABG HCO3 ABG Base Excess ABG Hemoglobin Oxyhemoglobin Sodium Potassium 3.3 L Chloride Carbon Dioxide BUN 42 H Creatinine Glucose 105 H POC Glucose 124 H Lactic Acid Calcium Ionized Calcium Phosphorus 1.70 L Magnesium Direct Bilirubin AST ALT Alkaline Phosphatase Lactate Dehydrogenase Troponin T C-Reactive Protein Total Protein Albumin Prealbumin Triglycerides Cholesterol LDL Cholesterol Direct HDL Cholesterol 25-OH Vitamin D Total PTH Intact Urine pH Urine WBC (Auto) Urine Creatinine Urine Total Protein Fluid Total Protein Vancomycin Trough Rheumatoid Factor Complement C4 Miscellaneous Test Crossmatch 01/22/17 01/22/17 01/23/17 17:16 23:35 05:35 WBC RBC Hgb Hct MCV MCH MCHC RDW Plt Count Lymph % (Auto) [place] % (Auto) Lymph # [place] # Baso # Seg Neutrophils % Seg Neuts % (Manual) Lymphocytes % (Manual) Monocytes % (Manual) Eosinophils % (Manual) Basophils % (Manual) Nucleated RBC % Seg Neutrophils # Seg Neutrophils # Man Lymphocytes # (Manual) Monocytes # (Manual) Eosinophils # (Manual) Basophils # (Manual) PT INR Fibrinogen dRVVT Confirm Interp Factor V Activity POC ABG pH POC ABG pCO2 POC ABG pO2 ABG pO2 ABG HCO3 ABG Base Excess ABG Hemoglobin Oxyhemoglobin Sodium Potassium Chloride Carbon Dioxide BUN Creatinine Glucose POC Glucose 135 H 120 H 111 H Lactic Acid Calcium Ionized Calcium Phosphorus Magnesium Direct Bilirubin AST ALT Alkaline Phosphatase Lactate Dehydrogenase Troponin T C-Reactive Protein Total Protein Albumin Prealbumin Triglycerides Cholesterol LDL Cholesterol Direct HDL Cholesterol 25-OH Vitamin D Total PTH Intact Urine pH Urine WBC (Auto) Urine Creatinine Urine Total Protein Fluid Total Protein Vancomycin Trough Rheumatoid Factor Complement C4 Miscellaneous Test Crossmatch 01/23/17 01/23/17 01/23/17 06:10 17:27 23:44 WBC RBC Hgb Hct MCV MCH MCHC RDW Plt Count Lymph % (Auto) [place] % (Auto) Lymph # [place] # Baso # Seg Neutrophils % Seg Neuts % (Manual) Lymphocytes % (Manual) Monocytes % (Manual) Eosinophils % (Manual) Basophils % (Manual) Nucleated RBC % Seg Neutrophils # Seg Neutrophils # Man Lymphocytes # (Manual) Monocytes # (Manual) Eosinophils # (Manual) Basophils # (Manual) PT INR Fibrinogen dRVVT Confirm Interp Factor V Activity POC ABG pH POC ABG pCO2 POC ABG pO2 ABG pO2 ABG HCO3 ABG Base Excess ABG Hemoglobin Oxyhemoglobin Sodium Potassium 3.3 L Chloride Carbon Dioxide BUN 66 H Creatinine 1.3 H Glucose 109 H POC Glucose 120 H 115 H Lactic Acid Calcium Ionized Calcium Phosphorus 2.20 L D Magnesium Direct Bilirubin AST ALT Alkaline Phosphatase Lactate Dehydrogenase Troponin T C-Reactive Protein Total Protein Albumin Prealbumin Triglycerides Cholesterol LDL Cholesterol Direct HDL Cholesterol 25-OH Vitamin D Total PTH Intact Urine pH Urine WBC (Auto) Urine Creatinine Urine Total Protein Fluid Total Protein Vancomycin Trough Rheumatoid Factor Complement C4 Miscellaneous Test Crossmatch 01/24/17 01/24/17 01/24/17 05:19 05:50 12:19 WBC RBC Hgb Hct MCV MCH MCHC RDW Plt Count Lymph % (Auto) [place] % (Auto) Lymph # [place] # Baso # Seg Neutrophils % Seg Neuts % (Manual) Lymphocytes % (Manual) Monocytes % (Manual) Eosinophils % (Manual) Basophils % (Manual) Nucleated RBC % Seg Neutrophils # Seg Neutrophils # Man Lymphocytes # (Manual) Monocytes # (Manual) Eosinophils # (Manual) Basophils # (Manual) PT INR Fibrinogen dRVVT Confirm Interp Factor V Activity POC ABG pH POC ABG pCO2 POC ABG pO2 ABG pO2 ABG HCO3 ABG Base Excess ABG Hemoglobin Oxyhemoglobin Sodium Potassium Chloride Carbon Dioxide BUN 47 H Creatinine Glucose 117 H POC Glucose 126 H 119 H Lactic Acid Calcium Ionized Calcium Phosphorus 2.30 L Magnesium 1.60 L Direct Bilirubin AST ALT Alkaline Phosphatase Lactate Dehydrogenase Troponin T C-Reactive Protein Total Protein Albumin Prealbumin Triglycerides Cholesterol LDL Cholesterol Direct HDL Cholesterol 25-OH Vitamin D Total PTH Intact Urine pH Urine WBC (Auto) Urine Creatinine Urine Total Protein Fluid Total Protein Vancomycin Trough Rheumatoid Factor Complement C4 Miscellaneous Test Crossmatch 01/24/17 01/25/17 01/25/17 17:08 00:37 04:00 WBC RBC Hgb Hct MCV MCH MCHC RDW Plt Count Lymph % (Auto) [place] % (Auto) Lymph # [place] # Baso # Seg Neutrophils % Seg Neuts % (Manual) Lymphocytes % (Manual) Monocytes % (Manual) Eosinophils % (Manual) Basophils % (Manual) Nucleated RBC % Seg Neutrophils # Seg Neutrophils # Man Lymphocytes # (Manual) Monocytes # (Manual) Eosinophils # (Manual) Basophils # (Manual) PT INR Fibrinogen dRVVT Confirm Interp Factor V Activity POC ABG pH POC ABG pCO2 POC ABG pO2 ABG pO2 ABG HCO3 ABG Base Excess ABG Hemoglobin Oxyhemoglobin Sodium Potassium Chloride Carbon Dioxide BUN 72 H Creatinine 1.3 H Glucose POC Glucose 127 H 110 H Lactic Acid Calcium Ionized Calcium Phosphorus Magnesium Direct Bilirubin AST ALT Alkaline Phosphatase Lactate Dehydrogenase Troponin T C-Reactive Protein Total Protein Albumin Prealbumin Triglycerides Cholesterol LDL Cholesterol Direct HDL Cholesterol 25-OH Vitamin D Total PTH Intact Urine pH Urine WBC (Auto) Urine Creatinine Urine Total Protein Fluid Total Protein Vancomycin Trough Rheumatoid Factor Complement C4 Miscellaneous Test Crossmatch 01/25/17 01/25/17 01/25/17 04:00 11:15 13:05 WBC RBC 2.49 L Hgb 6.7 L Hct 20.9 L MCV MCH 27 L MCHC RDW 18.8 H Plt Count Lymph % (Auto) [place] % (Auto) 10.1 H Lymph # [place] # 1.0 H Baso # Seg Neutrophils % Seg Neuts % (Manual) Lymphocytes % (Manual) Monocytes % (Manual) Eosinophils % (Manual) Basophils % (Manual) Nucleated RBC % Seg Neutrophils # Seg Neutrophils # Man Lymphocytes # (Manual) Monocytes # (Manual) Eosinophils # (Manual) Basophils # (Manual) PT INR Fibrinogen dRVVT Confirm Interp Factor V Activity POC ABG pH POC ABG pCO2 POC ABG pO2 ABG pO2 ABG HCO3 ABG Base Excess ABG Hemoglobin Oxyhemoglobin Sodium Potassium Chloride Carbon Dioxide BUN Creatinine Glucose POC Glucose 128 H Lactic Acid Calcium Ionized Calcium Phosphorus Magnesium Direct Bilirubin AST ALT Alkaline Phosphatase Lactate Dehydrogenase Troponin T C-Reactive Protein Total Protein Albumin Prealbumin Triglycerides Cholesterol LDL Cholesterol Direct HDL Cholesterol 25-OH Vitamin D Total PTH Intact Urine pH Urine WBC (Auto) Urine Creatinine Urine Total Protein Fluid Total Protein Vancomycin Trough Rheumatoid Factor Complement C4 Miscellaneous Test Crossmatch See Detail 01/25/17 01/25/17 01/26/17 18:02 23:07 01:20 WBC RBC Hgb Hct MCV MCH MCHC RDW Plt Count Lymph % (Auto) [place] % (Auto) Lymph # [place] # Baso # Seg Neutrophils % Seg Neuts % (Manual) Lymphocytes % (Manual) Monocytes % (Manual) Eosinophils % (Manual) Basophils % (Manual) Nucleated RBC % Seg Neutrophils # Seg Neutrophils # Man Lymphocytes # (Manual) Monocytes # (Manual) Eosinophils # (Manual) Basophils # (Manual) PT INR Fibrinogen dRVVT Confirm Interp Factor V Activity POC ABG pH POC ABG pCO2 POC ABG pO2 ABG pO2 ABG HCO3 ABG Base Excess ABG Hemoglobin Oxyhemoglobin Sodium Potassium Chloride Carbon Dioxide BUN Creatinine Glucose POC Glucose 120 H 123 H 112 H Lactic Acid Calcium Ionized Calcium Phosphorus Magnesium Direct Bilirubin AST ALT Alkaline Phosphatase Lactate Dehydrogenase Troponin T C-Reactive Protein Total Protein Albumin Prealbumin Triglycerides Cholesterol LDL Cholesterol Direct HDL Cholesterol 25-OH Vitamin D Total PTH Intact Urine pH Urine WBC (Auto) Urine Creatinine Urine Total Protein Fluid Total Protein Vancomycin Trough Rheumatoid Factor Complement C4 Miscellaneous Test Crossmatch 01/26/17 01/26/17 01/26/17 04:20 04:20 11:23 WBC 13.1 H RBC 3.28 L Hgb 9.0 L Hct 26.9 L D MCV MCH 27 L MCHC RDW 17.2 H Plt Count Lymph % (Auto) [place] % (Auto) 9.0 H Lymph # [place] # 1.2 H Baso # Seg Neutrophils % 73.1 H Seg Neuts % (Manual) Lymphocytes % (Manual) Monocytes % (Manual) Eosinophils % (Manual) Basophils % (Manual) Nucleated RBC % Seg Neutrophils # 9.6 H Seg Neutrophils # Man Lymphocytes # (Manual) Monocytes # (Manual) Eosinophils # (Manual) Basophils # (Manual) PT INR Fibrinogen dRVVT Confirm Interp Factor V Activity POC ABG pH POC ABG pCO2 POC ABG pO2 ABG pO2 ABG HCO3 ABG Base Excess ABG Hemoglobin Oxyhemoglobin Sodium Potassium Chloride Carbon Dioxide BUN 51 H Creatinine Glucose 117 H POC Glucose 125 H Lactic Acid Calcium Ionized Calcium Phosphorus Magnesium Direct Bilirubin AST ALT Alkaline Phosphatase Lactate Dehydrogenase Troponin T C-Reactive Protein Total Protein Albumin Prealbumin Triglycerides Cholesterol LDL Cholesterol Direct HDL Cholesterol 25-OH Vitamin D Total PTH Intact Urine pH Urine WBC (Auto) Urine Creatinine Urine Total Protein Fluid Total Protein Vancomycin Trough Rheumatoid Factor Complement C4 Miscellaneous Test Crossmatch 01/26/17 01/27/17 01/27/17 17:11 00:30 04:00 WBC RBC Hgb Hct MCV MCH MCHC RDW Plt Count Lymph % (Auto) [place] % (Auto) Lymph # [place] # Baso # Seg Neutrophils % Seg Neuts % (Manual) Lymphocytes % (Manual) Monocytes % (Manual) Eosinophils % (Manual) Basophils % (Manual) Nucleated RBC % Seg Neutrophils # Seg Neutrophils # Man Lymphocytes # (Manual) Monocytes # (Manual) Eosinophils # (Manual) Basophils # (Manual) PT INR Fibrinogen dRVVT Confirm Interp Factor V Activity POC ABG pH POC ABG pCO2 POC ABG pO2 ABG pO2 ABG HCO3 ABG Base Excess ABG Hemoglobin Oxyhemoglobin Sodium Potassium Chloride 97.7 L Carbon Dioxide 21 L BUN 79 H Creatinine 1.7 H D Glucose 112 H POC Glucose 133 H 135 H Lactic Acid Calcium Ionized Calcium Phosphorus 5.00 H D Magnesium Direct Bilirubin AST ALT Alkaline Phosphatase Lactate Dehydrogenase Troponin T C-Reactive Protein Total Protein Albumin Prealbumin Triglycerides Cholesterol LDL Cholesterol Direct HDL Cholesterol 25-OH Vitamin D Total PTH Intact Urine pH Urine WBC (Auto) Urine Creatinine Urine Total Protein Fluid Total Protein Vancomycin Trough Rheumatoid Factor Complement C4 Miscellaneous Test Crossmatch 01/27/17 01/27/17 01/27/17 05:12 12:18 17:25 WBC RBC Hgb Hct MCV MCH MCHC RDW Plt Count Lymph % (Auto) [place] % (Auto) Lymph # [place] # Baso # Seg Neutrophils % Seg Neuts % (Manual) Lymphocytes % (Manual) Monocytes % (Manual) Eosinophils % (Manual) Basophils % (Manual) Nucleated RBC % Seg Neutrophils # Seg Neutrophils # Man Lymphocytes # (Manual) Monocytes # (Manual) Eosinophils # (Manual) Basophils # (Manual) PT INR Fibrinogen dRVVT Confirm Interp Factor V Activity POC ABG pH POC ABG pCO2 POC ABG pO2 ABG pO2 ABG HCO3 ABG Base Excess ABG Hemoglobin Oxyhemoglobin Sodium Potassium Chloride Carbon Dioxide BUN Creatinine Glucose POC Glucose 116 H 153 H 152 H Lactic Acid Calcium Ionized Calcium Phosphorus Magnesium Direct Bilirubin AST ALT Alkaline Phosphatase Lactate Dehydrogenase Troponin T C-Reactive Protein Total Protein Albumin Prealbumin Triglycerides Cholesterol LDL Cholesterol Direct HDL Cholesterol 25-OH Vitamin D Total PTH Intact Urine pH Urine WBC (Auto) Urine Creatinine Urine Total Protein Fluid Total Protein Vancomycin Trough Rheumatoid Factor Complement C4 Miscellaneous Test Crossmatch 01/27/17 01/28/17 01/28/17 23:42 04:00 04:00 WBC 14.4 H RBC 2.82 L Hgb 7.4 L Hct 23.5 L MCV MCH 26 L MCHC RDW 17.6 H Plt Count Lymph % (Auto) 10.2 L [place] % (Auto) 11.0 H Lymph # [place] # 1.6 H Baso # Seg Neutrophils % 78.0 H Seg Neuts % (Manual) Lymphocytes % (Manual) Monocytes % (Manual) Eosinophils % (Manual) Basophils % (Manual) Nucleated RBC % Seg Neutrophils # 11.3 H Seg Neutrophils # Man Lymphocytes # (Manual) Monocytes # (Manual) Eosinophils # (Manual) Basophils # (Manual) PT INR Fibrinogen dRVVT Confirm Interp Factor V Activity POC ABG pH POC ABG pCO2 POC ABG pO2 ABG pO2 ABG HCO3 ABG Base Excess ABG Hemoglobin Oxyhemoglobin Sodium Potassium Chloride Carbon Dioxide BUN 55 H Creatinine 1.3 H Glucose 114 H POC Glucose 121 H Lactic Acid Calcium Ionized Calcium Phosphorus Magnesium Direct Bilirubin AST ALT Alkaline Phosphatase Lactate Dehydrogenase Troponin T C-Reactive Protein Total Protein Albumin 1.4 L Prealbumin Triglycerides Cholesterol LDL Cholesterol Direct HDL Cholesterol 25-OH Vitamin D Total PTH Intact Urine pH Urine WBC (Auto) Urine Creatinine Urine Total Protein Fluid Total Protein Vancomycin Trough Rheumatoid Factor Complement C4 Miscellaneous Test Crossmatch 01/28/17 01/28/17 01/29/17 04:59 12:30 00:02 WBC RBC Hgb Hct MCV MCH MCHC RDW Plt Count Lymph % (Auto) [place] % (Auto) Lymph # [place] # Baso # Seg Neutrophils % Seg Neuts % (Manual) Lymphocytes % (Manual) Monocytes % (Manual) Eosinophils % (Manual) Basophils % (Manual) Nucleated RBC % Seg Neutrophils # Seg Neutrophils # Man Lymphocytes # (Manual) Monocytes # (Manual) Eosinophils # (Manual) Basophils # (Manual) PT INR Fibrinogen dRVVT Confirm Interp Factor V Activity POC ABG pH POC ABG pCO2 POC ABG pO2 ABG pO2 ABG HCO3 ABG Base Excess ABG Hemoglobin Oxyhemoglobin Sodium Potassium Chloride Carbon Dioxide BUN Creatinine Glucose POC Glucose 126 H 119 H 138 H Lactic Acid Calcium Ionized Calcium Phosphorus Magnesium Direct Bilirubin AST ALT Alkaline Phosphatase Lactate Dehydrogenase Troponin T C-Reactive Protein Total Protein Albumin Prealbumin Triglycerides Cholesterol LDL Cholesterol Direct HDL Cholesterol 25-OH Vitamin D Total PTH Intact Urine pH Urine WBC (Auto) Urine Creatinine Urine Total Protein Fluid Total Protein Vancomycin Trough Rheumatoid Factor Complement C4 Miscellaneous Test Crossmatch 01/29/17 01/29/17 01/29/17 04:58 06:15 11:35 WBC RBC Hgb Hct MCV MCH MCHC RDW Plt Count Lymph % (Auto) [place] % (Auto) Lymph # [place] # Baso # Seg Neutrophils % Seg Neuts % (Manual) Lymphocytes % (Manual) Monocytes % (Manual) Eosinophils % (Manual) Basophils % (Manual) Nucleated RBC % Seg Neutrophils # Seg Neutrophils # Man Lymphocytes # (Manual) Monocytes # (Manual) Eosinophils # (Manual) Basophils # (Manual) PT INR Fibrinogen dRVVT Confirm Interp Factor V Activity POC ABG pH POC ABG pCO2 POC ABG pO2 ABG pO2 ABG HCO3 ABG Base Excess ABG Hemoglobin Oxyhemoglobin Sodium Potassium Chloride Carbon Dioxide BUN 85 H Creatinine 1.7 H Glucose 105 H POC Glucose 114 H 110 H Lactic Acid Calcium Ionized Calcium Phosphorus Magnesium 2.40 H Direct Bilirubin AST ALT Alkaline Phosphatase Lactate Dehydrogenase Troponin T C-Reactive Protein Total Protein Albumin Prealbumin Triglycerides Cholesterol LDL Cholesterol Direct HDL Cholesterol 25-OH Vitamin D Total PTH Intact Urine pH Urine WBC (Auto) Urine Creatinine Urine Total Protein Fluid Total Protein Vancomycin Trough Rheumatoid Factor Complement C4 Miscellaneous Test Crossmatch 01/29/17 01/29/17 01/30/17 18:24 23:41 05:12 WBC RBC Hgb Hct MCV MCH MCHC RDW Plt Count Lymph % (Auto) [place] % (Auto) Lymph # [place] # Baso # Seg Neutrophils % Seg Neuts % (Manual) Lymphocytes % (Manual) Monocytes % (Manual) Eosinophils % (Manual) Basophils % (Manual) Nucleated RBC % Seg Neutrophils # Seg Neutrophils # Man Lymphocytes # (Manual) Monocytes # (Manual) Eosinophils # (Manual) Basophils # (Manual) PT INR Fibrinogen dRVVT Confirm Interp Factor V Activity POC ABG pH POC ABG pCO2 POC ABG pO2 ABG pO2 ABG HCO3 ABG Base Excess ABG Hemoglobin Oxyhemoglobin Sodium Potassium Chloride Carbon Dioxide BUN Creatinine Glucose POC Glucose 109 H 134 H 109 H Lactic Acid Calcium Ionized Calcium Phosphorus Magnesium Direct Bilirubin AST ALT Alkaline Phosphatase Lactate Dehydrogenase Troponin T C-Reactive Protein Total Protein Albumin Prealbumin Triglycerides Cholesterol LDL Cholesterol Direct HDL Cholesterol 25-OH Vitamin D Total PTH Intact Urine pH Urine WBC (Auto) Urine Creatinine Urine Total Protein Fluid Total Protein Vancomycin Trough Rheumatoid Factor Complement C4 Miscellaneous Test Crossmatch 01/30/17 01/30/17 01/30/17 11:26 17:43 23:39 WBC RBC Hgb Hct MCV MCH MCHC RDW Plt Count Lymph % (Auto) [place] % (Auto) Lymph # [place] # Baso # Seg Neutrophils % Seg Neuts % (Manual) Lymphocytes % (Manual) Monocytes % (Manual) Eosinophils % (Manual) Basophils % (Manual) Nucleated RBC % Seg Neutrophils # Seg Neutrophils # Man Lymphocytes # (Manual) Monocytes # (Manual) Eosinophils # (Manual) Basophils # (Manual) PT INR Fibrinogen dRVVT Confirm Interp Factor V Activity POC ABG pH POC ABG pCO2 POC ABG pO2 ABG pO2 ABG HCO3 ABG Base Excess ABG Hemoglobin Oxyhemoglobin Sodium Potassium Chloride Carbon Dioxide BUN Creatinine Glucose POC Glucose 135 H 143 H 122 H Lactic Acid Calcium Ionized Calcium Phosphorus Magnesium Direct Bilirubin AST ALT Alkaline Phosphatase Lactate Dehydrogenase Troponin T C-Reactive Protein Total Protein Albumin Prealbumin Triglycerides Cholesterol LDL Cholesterol Direct HDL Cholesterol 25-OH Vitamin D Total PTH Intact Urine pH Urine WBC (Auto) Urine Creatinine Urine Total Protein Fluid Total Protein Vancomycin Trough Rheumatoid Factor Complement C4 Miscellaneous Test Crossmatch 01/31/17 01/31/17 01/31/17 04:00 05:40 11:12 WBC RBC Hgb Hct MCV MCH MCHC RDW Plt Count Lymph % (Auto) [place] % (Auto) Lymph # [place] # Baso # Seg Neutrophils % Seg Neuts % (Manual) Lymphocytes % (Manual) Monocytes % (Manual) Eosinophils % (Manual) Basophils % (Manual) Nucleated RBC % Seg Neutrophils # Seg Neutrophils # Man Lymphocytes # (Manual) Monocytes # (Manual) Eosinophils # (Manual) Basophils # (Manual) PT INR Fibrinogen dRVVT Confirm Interp Factor V Activity POC ABG pH POC ABG pCO2 POC ABG pO2 ABG pO2 ABG HCO3 ABG Base Excess ABG Hemoglobin Oxyhemoglobin Sodium Potassium Chloride Carbon Dioxide BUN 78 H Creatinine 1.5 H Glucose 108 H POC Glucose 123 H Lactic Acid Calcium Ionized Calcium Phosphorus Magnesium Direct Bilirubin AST ALT Alkaline Phosphatase Lactate Dehydrogenase Troponin T C-Reactive Protein 8.10 H Total Protein Albumin Prealbumin Triglycerides Cholesterol LDL Cholesterol Direct HDL Cholesterol 25-OH Vitamin D Total PTH Intact Urine pH Urine WBC (Auto) Urine Creatinine Urine Total Protein Fluid Total Protein Vancomycin Trough Rheumatoid Factor Complement C4 Miscellaneous Test Crossmatch 01/31/17 01/31/17 01/31/17 11:16 17:45 17:50 WBC RBC Hgb Hct MCV MCH MCHC RDW Plt Count Lymph % (Auto) [place] % (Auto) Lymph # [place] # Baso # Seg Neutrophils % Seg Neuts % (Manual) Lymphocytes % (Manual) Monocytes % (Manual) Eosinophils % (Manual) Basophils % (Manual) Nucleated RBC % Seg Neutrophils # Seg Neutrophils # Man Lymphocytes # (Manual) Monocytes # (Manual) Eosinophils # (Manual) Basophils # (Manual) PT INR Fibrinogen dRVVT Confirm Interp Factor V Activity POC ABG pH POC ABG pCO2 POC ABG pO2 ABG pO2 ABG HCO3 ABG Base Excess ABG Hemoglobin Oxyhemoglobin Sodium Potassium Chloride Carbon Dioxide BUN Creatinine Glucose POC Glucose 119 H 111 H Lactic Acid Calcium Ionized Calcium Phosphorus Magnesium Direct Bilirubin AST ALT Alkaline Phosphatase Lactate Dehydrogenase Troponin T C-Reactive Protein Total Protein Albumin Prealbumin Triglycerides Cholesterol LDL Cholesterol Direct HDL Cholesterol 25-OH Vitamin D Total PTH Intact 6.76 L Urine pH Urine WBC (Auto) Urine Creatinine Urine Total Protein Fluid Total Protein Vancomycin Trough Rheumatoid Factor Complement C4 Miscellaneous Test Crossmatch 01/31/17 02/01/17 02/01/17 23:19 05:42 09:24 WBC RBC Hgb Hct MCV MCH MCHC RDW Plt Count Lymph % (Auto) [place] % (Auto) Lymph # [place] # Baso # Seg Neutrophils % Seg Neuts % (Manual) Lymphocytes % (Manual) Monocytes % (Manual) Eosinophils % (Manual) Basophils % (Manual) Nucleated RBC % Seg Neutrophils # Seg Neutrophils # Man Lymphocytes # (Manual) Monocytes # (Manual) Eosinophils # (Manual) Basophils # (Manual) PT INR Fibrinogen dRVVT Confirm Interp Factor V Activity POC ABG pH POC ABG pCO2 POC ABG pO2 ABG pO2 ABG HCO3 ABG Base Excess ABG Hemoglobin Oxyhemoglobin Sodium Potassium Chloride Carbon Dioxide BUN Creatinine Glucose POC Glucose 118 H 122 H Lactic Acid Calcium Ionized Calcium Phosphorus Magnesium 2.60 H Direct Bilirubin AST ALT Alkaline Phosphatase Lactate Dehydrogenase Troponin T C-Reactive Protein Total Protein Albumin Prealbumin Triglycerides Cholesterol LDL Cholesterol Direct HDL Cholesterol 25-OH Vitamin D Total PTH Intact Urine pH Urine WBC (Auto) Urine Creatinine Urine Total Protein Fluid Total Protein Vancomycin Trough Rheumatoid Factor Complement C4 Miscellaneous Test Crossmatch 02/01/17 02/01/17 02/02/17 09:24 12:15 07:40 WBC RBC Hgb Hct MCV MCH MCHC RDW Plt Count Lymph % (Auto) [place] % (Auto) Lymph # [place] # Baso # Seg Neutrophils % Seg Neuts % (Manual) Lymphocytes % (Manual) Monocytes % (Manual) Eosinophils % (Manual) Basophils % (Manual) Nucleated RBC % Seg Neutrophils # Seg Neutrophils # Man Lymphocytes # (Manual) Monocytes # (Manual) Eosinophils # (Manual) Basophils # (Manual) PT INR Fibrinogen dRVVT Confirm Interp Factor V Activity POC ABG pH POC ABG pCO2 POC ABG pO2 ABG pO2 ABG HCO3 ABG Base Excess ABG Hemoglobin Oxyhemoglobin Sodium Potassium Chloride Carbon Dioxide BUN 102 H 72 H Creatinine 1.9 H 1.5 H Glucose 120 H POC Glucose 156 H Lactic Acid Calcium Ionized Calcium Phosphorus Magnesium Direct Bilirubin AST ALT Alkaline Phosphatase Lactate Dehydrogenase Troponin T C-Reactive Protein Total Protein Albumin Prealbumin Triglycerides Cholesterol LDL Cholesterol Direct HDL Cholesterol 25-OH Vitamin D Total PTH Intact Urine pH Urine WBC (Auto) Urine Creatinine Urine Total Protein Fluid Total Protein Vancomycin Trough Rheumatoid Factor Complement C4 Miscellaneous Test Crossmatch 02/02/17 02/02/17 02/03/17 10:16 12:11 00:08 WBC 12.0 H RBC 3.08 L Hgb 8.3 L Hct 25.6 L MCV MCH 27 L MCHC RDW 18.2 H Plt Count Lymph % (Auto) [place] % (Auto) Lymph # [place] # Baso # Seg Neutrophils % 78.4 H Seg Neuts % (Manual) Lymphocytes % (Manual) Monocytes % (Manual) Eosinophils % (Manual) Basophils % (Manual) Nucleated RBC % Seg Neutrophils # 9.4 H Seg Neutrophils # Man Lymphocytes # (Manual) Monocytes # (Manual) Eosinophils # (Manual) Basophils # (Manual) PT INR Fibrinogen dRVVT Confirm Interp Factor V Activity POC ABG pH POC ABG pCO2 POC ABG pO2 ABG pO2 ABG HCO3 ABG Base Excess ABG Hemoglobin Oxyhemoglobin Sodium Potassium Chloride Carbon Dioxide BUN Creatinine Glucose POC Glucose 110 H 120 H Lactic Acid Calcium Ionized Calcium Phosphorus Magnesium Direct Bilirubin AST ALT Alkaline Phosphatase Lactate Dehydrogenase Troponin T C-Reactive Protein Total Protein Albumin Prealbumin Triglycerides Cholesterol LDL Cholesterol Direct HDL Cholesterol 25-OH Vitamin D Total PTH Intact Urine pH Urine WBC (Auto) Urine Creatinine Urine Total Protein Fluid Total Protein Vancomycin Trough Rheumatoid Factor Complement C4 Miscellaneous Test Crossmatch 02/03/17 02/03/17 02/03/17 05:41 07:38 11:31 WBC RBC Hgb Hct MCV MCH MCHC RDW Plt Count Lymph % (Auto) [place] % (Auto) Lymph # [place] # Baso # Seg Neutrophils % Seg Neuts % (Manual) Lymphocytes % (Manual) Monocytes % (Manual) Eosinophils % (Manual) Basophils % (Manual) Nucleated RBC % Seg Neutrophils # Seg Neutrophils # Man Lymphocytes # (Manual) Monocytes # (Manual) Eosinophils # (Manual) Basophils # (Manual) PT INR Fibrinogen dRVVT Confirm Interp Factor V Activity POC ABG pH POC ABG pCO2 POC ABG pO2 ABG pO2 ABG HCO3 ABG Base Excess ABG Hemoglobin Oxyhemoglobin Sodium 134 L Potassium Chloride Carbon Dioxide 21 L BUN 91 H Creatinine 1.9 H Glucose 110 H POC Glucose 119 H 119 H Lactic Acid Calcium 10.3 H Ionized Calcium Phosphorus Magnesium Direct Bilirubin AST ALT Alkaline Phosphatase Lactate Dehydrogenase Troponin T C-Reactive Protein Total Protein Albumin Prealbumin Triglycerides Cholesterol LDL Cholesterol Direct HDL Cholesterol 25-OH Vitamin D Total PTH Intact Urine pH Urine WBC (Auto) Urine Creatinine Urine Total Protein Fluid Total Protein Vancomycin Trough Rheumatoid Factor Complement C4 Miscellaneous Test Crossmatch 02/03/17 02/04/17 02/04/17 17:13 04:00 05:18 WBC RBC Hgb Hct MCV MCH MCHC RDW Plt Count Lymph % (Auto) [place] % (Auto) Lymph # [place] # Baso # Seg Neutrophils % Seg Neuts % (Manual) Lymphocytes % (Manual) Monocytes % (Manual) Eosinophils % (Manual) Basophils % (Manual) Nucleated RBC % Seg Neutrophils # Seg Neutrophils # Man Lymphocytes # (Manual) Monocytes # (Manual) Eosinophils # (Manual) Basophils # (Manual) PT INR Fibrinogen dRVVT Confirm Interp Factor V Activity POC ABG pH POC ABG pCO2 POC ABG pO2 ABG pO2 ABG HCO3 ABG Base Excess ABG Hemoglobin Oxyhemoglobin Sodium 136 L Potassium Chloride Carbon Dioxide BUN 58 H Creatinine 1.3 H Glucose 103 H POC Glucose 133 H 132 H Lactic Acid Calcium Ionized Calcium Phosphorus 2.00 L D Magnesium 1.60 L Direct Bilirubin AST ALT Alkaline Phosphatase Lactate Dehydrogenase Troponin T C-Reactive Protein Total Protein Albumin Prealbumin Triglycerides Cholesterol LDL Cholesterol Direct HDL Cholesterol 25-OH Vitamin D Total PTH Intact Urine pH Urine WBC (Auto) Urine Creatinine Urine Total Protein Fluid Total Protein Vancomycin Trough Rheumatoid Factor Complement C4 Miscellaneous Test Crossmatch 02/05/17 02/05/17 02/05/17 00:01 04:00 06:42 WBC RBC Hgb Hct MCV MCH MCHC RDW Plt Count Lymph % (Auto) [place] % (Auto) Lymph # [place] # Baso # Seg Neutrophils % Seg Neuts % (Manual) Lymphocytes % (Manual) Monocytes % (Manual) Eosinophils % (Manual) Basophils % (Manual) Nucleated RBC % Seg Neutrophils # Seg Neutrophils # Man Lymphocytes # (Manual) Monocytes # (Manual) Eosinophils # (Manual) Basophils # (Manual) PT INR Fibrinogen dRVVT Confirm Interp Factor V Activity POC ABG pH POC ABG pCO2 POC ABG pO2 ABG pO2 ABG HCO3 ABG Base Excess ABG Hemoglobin Oxyhemoglobin Sodium Potassium Chloride Carbon Dioxide BUN 83 H Creatinine 1.8 H Glucose POC Glucose 119 H 110 H Lactic Acid Calcium 10.7 H Ionized Calcium Phosphorus Magnesium Direct Bilirubin AST ALT Alkaline Phosphatase Lactate Dehydrogenase Troponin T C-Reactive Protein Total Protein Albumin Prealbumin Triglycerides Cholesterol LDL Cholesterol Direct HDL Cholesterol 25-OH Vitamin D Total PTH Intact Urine pH Urine WBC (Auto) Urine Creatinine Urine Total Protein Fluid Total Protein Vancomycin Trough Rheumatoid Factor Complement C4 Miscellaneous Test Crossmatch 02/05/17 02/05/17 02/05/17 09:59 11:47 23:44 WBC RBC 2.69 L Hgb 7.2 L Hct 22.5 L MCV MCH 27 L MCHC RDW 18.6 H Plt Count Lymph % (Auto) [place] % (Auto) 9.2 H Lymph # [place] # 0.9 H Baso # Seg Neutrophils % Seg Neuts % (Manual) Lymphocytes % (Manual) Monocytes % (Manual) Eosinophils % (Manual) Basophils % (Manual) Nucleated RBC % Seg Neutrophils # Seg Neutrophils # Man Lymphocytes # (Manual) Monocytes # (Manual) Eosinophils # (Manual) Basophils # (Manual) PT INR Fibrinogen dRVVT Confirm Interp Factor V Activity POC ABG pH POC ABG pCO2 POC ABG pO2 ABG pO2 ABG HCO3 ABG Base Excess ABG Hemoglobin Oxyhemoglobin Sodium Potassium Chloride Carbon Dioxide BUN Creatinine Glucose POC Glucose 130 H 123 H Lactic Acid Calcium Ionized Calcium Phosphorus Magnesium Direct Bilirubin AST ALT Alkaline Phosphatase Lactate Dehydrogenase Troponin T C-Reactive Protein Total Protein Albumin Prealbumin Triglycerides Cholesterol LDL Cholesterol Direct HDL Cholesterol 25-OH Vitamin D Total PTH Intact Urine pH Urine WBC (Auto) Urine Creatinine Urine Total Protein Fluid Total Protein Vancomycin Trough Rheumatoid Factor Complement C4 Miscellaneous Test Crossmatch 02/06/17 02/06/17 02/06/17 04:45 05:58 12:01 WBC RBC Hgb Hct MCV MCH MCHC RDW Plt Count Lymph % (Auto) [place] % (Auto) Lymph # [place] # Baso # Seg Neutrophils % Seg Neuts % (Manual) Lymphocytes % (Manual) Monocytes % (Manual) Eosinophils % (Manual) Basophils % (Manual) Nucleated RBC % Seg Neutrophils # Seg Neutrophils # Man Lymphocytes # (Manual) Monocytes # (Manual) Eosinophils # (Manual) Basophils # (Manual) PT INR Fibrinogen dRVVT Confirm Interp Factor V Activity POC ABG pH POC ABG pCO2 POC ABG pO2 ABG pO2 ABG HCO3 ABG Base Excess ABG Hemoglobin Oxyhemoglobin Sodium Potassium Chloride Carbon Dioxide BUN 101 H Creatinine 2.0 H Glucose 102 H POC Glucose 115 H 132 H Lactic Acid Calcium 10.6 H Ionized Calcium Phosphorus Magnesium Direct Bilirubin AST ALT Alkaline Phosphatase 199 H Lactate Dehydrogenase Troponin T C-Reactive Protein Total Protein Albumin 1.4 L Prealbumin Triglycerides Cholesterol LDL Cholesterol Direct HDL Cholesterol 25-OH Vitamin D Total PTH Intact Urine pH Urine WBC (Auto) Urine Creatinine Urine Total Protein Fluid Total Protein Vancomycin Trough Rheumatoid Factor Complement C4 Miscellaneous Test Crossmatch 02/06/17 02/06/17 02/07/17 17:41 23:32 05:04 WBC RBC Hgb Hct MCV MCH MCHC RDW Plt Count Lymph % (Auto) [place] % (Auto) Lymph # [place] # Baso # Seg Neutrophils % Seg Neuts % (Manual) Lymphocytes % (Manual) Monocytes % (Manual) Eosinophils % (Manual) Basophils % (Manual) Nucleated RBC % Seg Neutrophils # Seg Neutrophils # Man Lymphocytes # (Manual) Monocytes # (Manual) Eosinophils # (Manual) Basophils # (Manual) PT INR Fibrinogen dRVVT Confirm Interp Factor V Activity POC ABG pH POC ABG pCO2 POC ABG pO2 ABG pO2 ABG HCO3 ABG Base Excess ABG Hemoglobin Oxyhemoglobin Sodium Potassium Chloride Carbon Dioxide BUN Creatinine Glucose POC Glucose 134 H 128 H 119 H Lactic Acid Calcium Ionized Calcium Phosphorus Magnesium Direct Bilirubin AST ALT Alkaline Phosphatase Lactate Dehydrogenase Troponin T C-Reactive Protein Total Protein Albumin Prealbumin Triglycerides Cholesterol LDL Cholesterol Direct HDL Cholesterol 25-OH Vitamin D Total PTH Intact Urine pH Urine WBC (Auto) Urine Creatinine Urine Total Protein Fluid Total Protein Vancomycin Trough Rheumatoid Factor Complement C4 Miscellaneous Test Crossmatch 02/07/17 02/07/17 02/07/17 06:30 11:20 17:13 WBC RBC Hgb Hct MCV MCH MCHC RDW Plt Count Lymph % (Auto) [place] % (Auto) Lymph # [place] # Baso # Seg Neutrophils % Seg Neuts % (Manual) Lymphocytes % (Manual) Monocytes % (Manual) Eosinophils % (Manual) Basophils % (Manual) Nucleated RBC % Seg Neutrophils # Seg Neutrophils # Man Lymphocytes # (Manual) Monocytes # (Manual) Eosinophils # (Manual) Basophils # (Manual) PT INR Fibrinogen dRVVT Confirm Interp Factor V Activity POC ABG pH POC ABG pCO2 POC ABG pO2 ABG pO2 ABG HCO3 ABG Base Excess ABG Hemoglobin Oxyhemoglobin Sodium Potassium 3.4 L Chloride Carbon Dioxide BUN 69 H Creatinine 1.5 H Glucose 105 H POC Glucose 117 H 110 H Lactic Acid Calcium Ionized Calcium Phosphorus Magnesium 1.50 L Direct Bilirubin AST ALT Alkaline Phosphatase Lactate Dehydrogenase Troponin T C-Reactive Protein Total Protein Albumin Prealbumin Triglycerides Cholesterol LDL Cholesterol Direct HDL Cholesterol 25-OH Vitamin D Total PTH Intact Urine pH Urine WBC (Auto) Urine Creatinine Urine Total Protein Fluid Total Protein Vancomycin Trough Rheumatoid Factor Complement C4 Miscellaneous Test Crossmatch 02/07/17 02/08/17 02/08/17 20:47 04:00 11:43 WBC RBC Hgb Hct MCV MCH MCHC RDW Plt Count Lymph % (Auto) [place] % (Auto) Lymph # [place] # Baso # Seg Neutrophils % Seg Neuts % (Manual) Lymphocytes % (Manual) Monocytes % (Manual) Eosinophils % (Manual) Basophils % (Manual) Nucleated RBC % Seg Neutrophils # Seg Neutrophils # Man Lymphocytes # (Manual) Monocytes # (Manual) Eosinophils # (Manual) Basophils # (Manual) PT INR Fibrinogen dRVVT Confirm Interp Factor V Activity POC ABG pH POC ABG pCO2 POC ABG pO2 ABG pO2 ABG HCO3 ABG Base Excess ABG Hemoglobin Oxyhemoglobin Sodium Potassium Chloride Carbon Dioxide BUN 86 H Creatinine 1.7 H Glucose POC Glucose 115 H 122 H Lactic Acid Calcium Ionized Calcium Phosphorus Magnesium 1.60 L Direct Bilirubin AST ALT Alkaline Phosphatase Lactate Dehydrogenase Troponin T C-Reactive Protein Total Protein Albumin Prealbumin Triglycerides Cholesterol LDL Cholesterol Direct HDL Cholesterol 25-OH Vitamin D Total PTH Intact Urine pH Urine WBC (Auto) Urine Creatinine Urine Total Protein Fluid Total Protein Vancomycin Trough Rheumatoid Factor Complement C4 Miscellaneous Test Crossmatch 02/08/17 02/09/17 02/09/17 17:36 05:44 11:30 WBC RBC Hgb Hct MCV MCH MCHC RDW Plt Count Lymph % (Auto) [place] % (Auto) Lymph # [place] # Baso # Seg Neutrophils % Seg Neuts % (Manual) Lymphocytes % (Manual) Monocytes % (Manual) Eosinophils % (Manual) Basophils % (Manual) Nucleated RBC % Seg Neutrophils # Seg Neutrophils # Man Lymphocytes # (Manual) Monocytes # (Manual) Eosinophils # (Manual) Basophils # (Manual) PT INR Fibrinogen dRVVT Confirm Interp Factor V Activity POC ABG pH POC ABG pCO2 POC ABG pO2 ABG pO2 ABG HCO3 ABG Base Excess ABG Hemoglobin Oxyhemoglobin Sodium Potassium Chloride Carbon Dioxide BUN Creatinine Glucose POC Glucose 125 H 117 H 120 H Lactic Acid Calcium Ionized Calcium Phosphorus Magnesium Direct Bilirubin AST ALT Alkaline Phosphatase Lactate Dehydrogenase Troponin T C-Reactive Protein Total Protein Albumin Prealbumin Triglycerides Cholesterol LDL Cholesterol Direct HDL Cholesterol 25-OH Vitamin D Total PTH Intact Urine pH Urine WBC (Auto) Urine Creatinine Urine Total Protein Fluid Total Protein Vancomycin Trough Rheumatoid Factor Complement C4 Miscellaneous Test Crossmatch 02/09/17 02/10/17 02/10/17 23:45 05:45 05:50 WBC RBC Hgb Hct MCV MCH MCHC RDW Plt Count Lymph % (Auto) [place] % (Auto) Lymph # [place] # Baso # Seg Neutrophils % Seg Neuts % (Manual) Lymphocytes % (Manual) Monocytes % (Manual) Eosinophils % (Manual) Basophils % (Manual) Nucleated RBC % Seg Neutrophils # Seg Neutrophils # Man Lymphocytes # (Manual) Monocytes # (Manual) Eosinophils # (Manual) Basophils # (Manual) PT INR Fibrinogen dRVVT Confirm Interp Factor V Activity POC ABG pH POC ABG pCO2 POC ABG pO2 ABG pO2 ABG HCO3 ABG Base Excess ABG Hemoglobin Oxyhemoglobin Sodium Potassium Chloride Carbon Dioxide BUN 85 H Creatinine 1.8 H Glucose 109 H POC Glucose 114 H 189 H Lactic Acid Calcium Ionized Calcium Phosphorus Magnesium 2.50 H Direct Bilirubin AST ALT Alkaline Phosphatase Lactate Dehydrogenase Troponin T C-Reactive Protein Total Protein Albumin Prealbumin Triglycerides Cholesterol LDL Cholesterol Direct HDL Cholesterol 25-OH Vitamin D Total PTH Intact Urine pH Urine WBC (Auto) Urine Creatinine Urine Total Protein Fluid Total Protein Vancomycin Trough Rheumatoid Factor Complement C4 Miscellaneous Test Crossmatch 02/10/17 02/10/17 02/10/17 05:51 11:55 17:42 WBC RBC Hgb Hct MCV MCH MCHC RDW Plt Count Lymph % (Auto) [place] % (Auto) Lymph # [place] # Baso # Seg Neutrophils % Seg Neuts % (Manual) Lymphocytes % (Manual) Monocytes % (Manual) Eosinophils % (Manual) Basophils % (Manual) Nucleated RBC % Seg Neutrophils # Seg Neutrophils # Man Lymphocytes # (Manual) Monocytes # (Manual) Eosinophils # (Manual) Basophils # (Manual) PT INR Fibrinogen dRVVT Confirm Interp Factor V Activity POC ABG pH POC ABG pCO2 POC ABG pO2 ABG pO2 ABG HCO3 ABG Base Excess ABG Hemoglobin Oxyhemoglobin Sodium Potassium Chloride Carbon Dioxide BUN Creatinine Glucose POC Glucose 106 H 146 H 132 H Lactic Acid Calcium Ionized Calcium Phosphorus Magnesium Direct Bilirubin AST ALT Alkaline Phosphatase Lactate Dehydrogenase Troponin T C-Reactive Protein Total Protein Albumin Prealbumin Triglycerides Cholesterol LDL Cholesterol Direct HDL Cholesterol 25-OH Vitamin D Total PTH Intact Urine pH Urine WBC (Auto) Urine Creatinine Urine Total Protein Fluid Total Protein Vancomycin Trough Rheumatoid Factor Complement C4 Miscellaneous Test Crossmatch 02/10/17 02/11/17 02/11/17 23:43 04:08 05:34 WBC RBC Hgb Hct MCV MCH MCHC RDW Plt Count Lymph % (Auto) [place] % (Auto) Lymph # [place] # Baso # Seg Neutrophils % Seg Neuts % (Manual) Lymphocytes % (Manual) Monocytes % (Manual) Eosinophils % (Manual) Basophils % (Manual) Nucleated RBC % Seg Neutrophils # Seg Neutrophils # Man Lymphocytes # (Manual) Monocytes # (Manual) Eosinophils # (Manual) Basophils # (Manual) PT INR Fibrinogen dRVVT Confirm Interp Factor V Activity POC ABG pH POC ABG pCO2 POC ABG pO2 ABG pO2 ABG HCO3 ABG Base Excess ABG Hemoglobin Oxyhemoglobin Sodium 136 L Potassium Chloride Carbon Dioxide BUN 65 H Creatinine 1.7 H Glucose 105 H POC Glucose 130 H 113 H Lactic Acid Calcium Ionized Calcium Phosphorus Magnesium Direct Bilirubin AST ALT Alkaline Phosphatase Lactate Dehydrogenase Troponin T C-Reactive Protein Total Protein Albumin Prealbumin Triglycerides Cholesterol LDL Cholesterol Direct HDL Cholesterol 25-OH Vitamin D Total PTH Intact Urine pH Urine WBC (Auto) Urine Creatinine Urine Total Protein Fluid Total Protein Vancomycin Trough Rheumatoid Factor Complement C4 Miscellaneous Test Crossmatch 02/11/17 02/11/17 02/12/17 11:56 23:18 06:19 WBC RBC Hgb Hct MCV MCH MCHC RDW Plt Count Lymph % (Auto) [place] % (Auto) Lymph # [place] # Baso # Seg Neutrophils % Seg Neuts % (Manual) Lymphocytes % (Manual) Monocytes % (Manual) Eosinophils % (Manual) Basophils % (Manual) Nucleated RBC % Seg Neutrophils # Seg Neutrophils # Man Lymphocytes # (Manual) Monocytes # (Manual) Eosinophils # (Manual) Basophils # (Manual) PT INR Fibrinogen dRVVT Confirm Interp Factor V Activity POC ABG pH POC ABG pCO2 POC ABG pO2 ABG pO2 ABG HCO3 ABG Base Excess ABG Hemoglobin Oxyhemoglobin Sodium 136 L Potassium Chloride 97.1 L Carbon Dioxide BUN 93 H Creatinine 2.4 H Glucose POC Glucose 126 H 119 H Lactic Acid Calcium 11.0 H Ionized Calcium Phosphorus Magnesium Direct Bilirubin AST ALT Alkaline Phosphatase Lactate Dehydrogenase Troponin T C-Reactive Protein Total Protein Albumin Prealbumin Triglycerides Cholesterol LDL Cholesterol Direct HDL Cholesterol 25-OH Vitamin D Total PTH Intact Urine pH Urine WBC (Auto) Urine Creatinine Urine Total Protein Fluid Total Protein Vancomycin Trough Rheumatoid Factor Complement C4 Miscellaneous Test Crossmatch 02/12/17 02/12/17 02/12/17 08:00 10:25 11:42 WBC 15.4 H RBC 2.63 L Hgb 6.9 L Hct 22.6 L MCV MCH 26 L MCHC RDW 20.5 H Plt Count Lymph % (Auto) [place] % (Auto) Lymph # [place] # Baso # Seg Neutrophils % Seg Neuts % (Manual) Lymphocytes % (Manual) Monocytes % (Manual) Eosinophils % (Manual) Basophils % (Manual) Nucleated RBC % Seg Neutrophils # Seg Neutrophils # Man Lymphocytes # (Manual) Monocytes # (Manual) Eosinophils # (Manual) Basophils # (Manual) PT INR Fibrinogen dRVVT Confirm Interp Factor V Activity POC ABG pH POC ABG pCO2 POC ABG pO2 ABG pO2 ABG HCO3 ABG Base Excess ABG Hemoglobin Oxyhemoglobin Sodium Potassium Chloride Carbon Dioxide BUN Creatinine Glucose POC Glucose 142 H Lactic Acid Calcium Ionized Calcium Phosphorus Magnesium Direct Bilirubin AST ALT Alkaline Phosphatase Lactate Dehydrogenase Troponin T C-Reactive Protein Total Protein Albumin Prealbumin Triglycerides Cholesterol LDL Cholesterol Direct HDL Cholesterol 25-OH Vitamin D Total PTH Intact Urine pH Urine WBC (Auto) Urine Creatinine Urine Total Protein Fluid Total Protein Vancomycin Trough Rheumatoid Factor Complement C4 Miscellaneous Test Crossmatch See Detail 02/12/17 02/13/17 02/13/17 18:04 00:04 05:00 WBC RBC Hgb Hct MCV MCH MCHC RDW Plt Count Lymph % (Auto) [place] % (Auto) Lymph # [place] # Baso # Seg Neutrophils % Seg Neuts % (Manual) Lymphocytes % (Manual) Monocytes % (Manual) Eosinophils % (Manual) Basophils % (Manual) Nucleated RBC % Seg Neutrophils # Seg Neutrophils # Man Lymphocytes # (Manual) Monocytes # (Manual) Eosinophils # (Manual) Basophils # (Manual) PT INR Fibrinogen dRVVT Confirm Interp Factor V Activity POC ABG pH POC ABG pCO2 POC ABG pO2 ABG pO2 ABG HCO3 ABG Base Excess ABG Hemoglobin Oxyhemoglobin Sodium 134 L Potassium Chloride 96.1 L Carbon Dioxide 20 L BUN 125 H Creatinine 3.0 H Glucose 111 H POC Glucose 135 H 109 H Lactic Acid Calcium 11.3 H Ionized Calcium Phosphorus Magnesium Direct Bilirubin AST ALT Alkaline Phosphatase Lactate Dehydrogenase Troponin T C-Reactive Protein Total Protein Albumin Prealbumin Triglycerides Cholesterol LDL Cholesterol Direct HDL Cholesterol 25-OH Vitamin D Total PTH Intact Urine pH Urine WBC (Auto) Urine Creatinine Urine Total Protein Fluid Total Protein Vancomycin Trough Rheumatoid Factor Complement C4 Miscellaneous Test Crossmatch 02/13/17 02/13/17 02/13/17 05:00 05:28 12:03 WBC 11.9 H RBC 2.92 L Hgb 7.8 L Hct 25.2 L MCV MCH 27 L MCHC RDW 19.3 H Plt Count Lymph % (Auto) [place] % (Auto) Lymph # [place] # Baso # Seg Neutrophils % Seg Neuts % (Manual) Lymphocytes % (Manual) Monocytes % (Manual) Eosinophils % (Manual) Basophils % (Manual) Nucleated RBC % Seg Neutrophils # Seg Neutrophils # Man Lymphocytes # (Manual) Monocytes # (Manual) Eosinophils # (Manual) Basophils # (Manual) PT INR Fibrinogen dRVVT Confirm Interp Factor V Activity POC ABG pH POC ABG pCO2 POC ABG pO2 ABG pO2 ABG HCO3 ABG Base Excess ABG Hemoglobin Oxyhemoglobin Sodium Potassium Chloride Carbon Dioxide BUN Creatinine Glucose POC Glucose 124 H 160 H Lactic Acid Calcium Ionized Calcium Phosphorus Magnesium Direct Bilirubin AST ALT Alkaline Phosphatase Lactate Dehydrogenase Troponin T C-Reactive Protein Total Protein Albumin Prealbumin Triglycerides Cholesterol LDL Cholesterol Direct HDL Cholesterol 25-OH Vitamin D Total PTH Intact Urine pH Urine WBC (Auto) Urine Creatinine Urine Total Protein Fluid Total Protein Vancomycin Trough Rheumatoid Factor Complement C4 Miscellaneous Test Crossmatch 02/13/17 02/14/17 02/14/17 18:09 06:16 08:08 WBC 15.2 H RBC 2.97 L Hgb 8.1 L Hct 26.3 L MCV MCH MCHC RDW 19.3 H Plt Count Lymph % (Auto) [place] % (Auto) Lymph # [place] # Baso # Seg Neutrophils % Seg Neuts % (Manual) Lymphocytes % (Manual) Monocytes % (Manual) Eosinophils % (Manual) Basophils % (Manual) Nucleated RBC % Seg Neutrophils # Seg Neutrophils # Man Lymphocytes # (Manual) Monocytes # (Manual) Eosinophils # (Manual) Basophils # (Manual) PT INR Fibrinogen dRVVT Confirm Interp Factor V Activity POC ABG pH POC ABG pCO2 POC ABG pO2 ABG pO2 ABG HCO3 ABG Base Excess ABG Hemoglobin Oxyhemoglobin Sodium Potassium Chloride Carbon Dioxide BUN Creatinine Glucose POC Glucose 110 H 112 H Lactic Acid Calcium Ionized Calcium Phosphorus Magnesium Direct Bilirubin AST ALT Alkaline Phosphatase Lactate Dehydrogenase Troponin T C-Reactive Protein Total Protein Albumin Prealbumin Triglycerides Cholesterol LDL Cholesterol Direct HDL Cholesterol 25-OH Vitamin D Total PTH Intact Urine pH Urine WBC (Auto) Urine Creatinine Urine Total Protein Fluid Total Protein Vancomycin Trough Rheumatoid Factor Complement C4 Miscellaneous Test Crossmatch 02/14/17 02/14/17 02/15/17 08:08 17:41 04:15 WBC RBC Hgb Hct MCV MCH MCHC RDW Plt Count Lymph % (Auto) [place] % (Auto) Lymph # [place] # Baso # Seg Neutrophils % Seg Neuts % (Manual) Lymphocytes % (Manual) Monocytes % (Manual) Eosinophils % (Manual) Basophils % (Manual) Nucleated RBC % Seg Neutrophils # Seg Neutrophils # Man Lymphocytes # (Manual) Monocytes # (Manual) Eosinophils # (Manual) Basophils # (Manual) PT INR Fibrinogen dRVVT Confirm Interp Factor V Activity POC ABG pH POC ABG pCO2 POC ABG pO2 ABG pO2 ABG HCO3 ABG Base Excess ABG Hemoglobin Oxyhemoglobin Sodium Potassium Chloride Carbon Dioxide 18 L 21 L BUN 79 H 113 H Creatinine 2.1 H 2.8 H Glucose POC Glucose 118 H Lactic Acid Calcium 10.7 H Ionized Calcium Phosphorus 1.70 L D Magnesium 1.60 L Direct Bilirubin AST ALT Alkaline Phosphatase Lactate Dehydrogenase Troponin T C-Reactive Protein Total Protein Albumin Prealbumin Triglycerides Cholesterol LDL Cholesterol Direct HDL Cholesterol 25-OH Vitamin D Total PTH Intact Urine pH Urine WBC (Auto) Urine Creatinine Urine Total Protein Fluid Total Protein Vancomycin Trough Rheumatoid Factor Complement C4 Miscellaneous Test Crossmatch 02/15/17 02/15/17 02/15/17 06:06 11:31 17:52 WBC RBC Hgb Hct MCV MCH MCHC RDW Plt Count Lymph % (Auto) [place] % (Auto) Lymph # [place] # Baso # Seg Neutrophils % Seg Neuts % (Manual) Lymphocytes % (Manual) Monocytes % (Manual) Eosinophils % (Manual) Basophils % (Manual) Nucleated RBC % Seg Neutrophils # Seg Neutrophils # Man Lymphocytes # (Manual) Monocytes # (Manual) Eosinophils # (Manual) Basophils # (Manual) PT INR Fibrinogen dRVVT Confirm Interp Factor V Activity POC ABG pH POC ABG pCO2 POC ABG pO2 ABG pO2 ABG HCO3 ABG Base Excess ABG Hemoglobin Oxyhemoglobin Sodium Potassium Chloride Carbon Dioxide BUN Creatinine Glucose POC Glucose 115 H 129 H 201 H Lactic Acid Calcium Ionized Calcium Phosphorus Magnesium Direct Bilirubin AST ALT Alkaline Phosphatase Lactate Dehydrogenase Troponin T C-Reactive Protein Total Protein Albumin Prealbumin Triglycerides Cholesterol LDL Cholesterol Direct HDL Cholesterol 25-OH Vitamin D Total PTH Intact Urine pH Urine WBC (Auto) Urine Creatinine Urine Total Protein Fluid Total Protein Vancomycin Trough Rheumatoid Factor Complement C4 Miscellaneous Test Crossmatch 02/15/17 02/15/17 02/15/17 19:08 19:08 19:08 WBC RBC Hgb Hct MCV MCH MCHC RDW Plt Count Lymph % (Auto) [place] % (Auto) Lymph # [place] # Baso # Seg Neutrophils % Seg Neuts % (Manual) Lymphocytes % (Manual) Monocytes % (Manual) Eosinophils % (Manual) Basophils % (Manual) Nucleated RBC % Seg Neutrophils # Seg Neutrophils # Man Lymphocytes # (Manual) Monocytes # (Manual) Eosinophils # (Manual) Basophils # (Manual) PT INR Fibrinogen dRVVT Confirm Interp Factor V Activity POC ABG pH POC ABG pCO2 POC ABG pO2 ABG pO2 ABG HCO3 ABG Base Excess ABG Hemoglobin Oxyhemoglobin Sodium Potassium Chloride Carbon Dioxide BUN Creatinine Glucose POC Glucose Lactic Acid Calcium Ionized Calcium 6.0 H Phosphorus Magnesium Direct Bilirubin AST ALT Alkaline Phosphatase Lactate Dehydrogenase Troponin T C-Reactive Protein Total Protein Albumin Prealbumin Triglycerides Cholesterol LDL Cholesterol Direct HDL Cholesterol 25-OH Vitamin D Total 13 L PTH Intact 10.88 L Urine pH Urine WBC (Auto) Urine Creatinine Urine Total Protein Fluid Total Protein Vancomycin Trough Rheumatoid Factor Complement C4 Miscellaneous Test Crossmatch 02/16/17 02/16/17 02/16/17 05:12 06:00 12:39 WBC RBC Hgb Hct MCV MCH MCHC RDW Plt Count Lymph % (Auto) [place] % (Auto) Lymph # [place] # Baso # Seg Neutrophils % Seg Neuts % (Manual) Lymphocytes % (Manual) Monocytes % (Manual) Eosinophils % (Manual) Basophils % (Manual) Nucleated RBC % Seg Neutrophils # Seg Neutrophils # Man Lymphocytes # (Manual) Monocytes # (Manual) Eosinophils # (Manual) Basophils # (Manual) PT INR Fibrinogen dRVVT Confirm Interp Factor V Activity POC ABG pH POC ABG pCO2 POC ABG pO2 ABG pO2 ABG HCO3 ABG Base Excess ABG Hemoglobin Oxyhemoglobin Sodium Potassium Chloride Carbon Dioxide BUN 74 H Creatinine 1.7 H Glucose 102 H POC Glucose 125 H 109 H Lactic Acid Calcium Ionized Calcium Phosphorus 2.10 L D Magnesium Direct Bilirubin AST ALT Alkaline Phosphatase Lactate Dehydrogenase Troponin T C-Reactive Protein Total Protein Albumin Prealbumin Triglycerides Cholesterol LDL Cholesterol Direct HDL Cholesterol 25-OH Vitamin D Total PTH Intact Urine pH Urine WBC (Auto) Urine Creatinine Urine Total Protein Fluid Total Protein Vancomycin Trough Rheumatoid Factor Complement C4 Miscellaneous Test Crossmatch 02/16/17 02/16/17 02/17/17 17:31 23:57 05:30 WBC RBC Hgb Hct MCV MCH MCHC RDW Plt Count Lymph % (Auto) [place] % (Auto) Lymph # [place] # Baso # Seg Neutrophils % Seg Neuts % (Manual) Lymphocytes % (Manual) Monocytes % (Manual) Eosinophils % (Manual) Basophils % (Manual) Nucleated RBC % Seg Neutrophils # Seg Neutrophils # Man Lymphocytes # (Manual) Monocytes # (Manual) Eosinophils # (Manual) Basophils # (Manual) PT INR Fibrinogen dRVVT Confirm Interp Factor V Activity POC ABG pH POC ABG pCO2 POC ABG pO2 ABG pO2 ABG HCO3 ABG Base Excess ABG Hemoglobin Oxyhemoglobin Sodium Potassium Chloride Carbon Dioxide BUN Creatinine Glucose POC Glucose 106 H 127 H 122 H Lactic Acid Calcium Ionized Calcium Phosphorus Magnesium Direct Bilirubin AST ALT Alkaline Phosphatase Lactate Dehydrogenase Troponin T C-Reactive Protein Total Protein Albumin Prealbumin Triglycerides Cholesterol LDL Cholesterol Direct HDL Cholesterol 25-OH Vitamin D Total PTH Intact Urine pH Urine WBC (Auto) Urine Creatinine Urine Total Protein Fluid Total Protein Vancomycin Trough Rheumatoid Factor Complement C4 Miscellaneous Test Crossmatch 02/17/17 02/17/17 02/17/17 06:00 12: 17:57 WBC RBC Hgb Hct MCV MCH MCHC RDW Plt Count Lymph % (Auto) [place] % (Auto) Lymph # [place] # Baso # Seg Neutrophils % Seg Neuts % (Manual) Lymphocytes % (Manual) Monocytes % (Manual) Eosinophils % (Manual) Basophils % (Manual) Nucleated RBC % Seg Neutrophils # Seg Neutrophils # Man Lymphocytes # (Manual) Monocytes # (Manual) Eosinophils # (Manual) Basophils # (Manual) PT INR Fibrinogen dRVVT Confirm Interp Factor V Activity POC ABG pH POC ABG pCO2 POC ABG pO2 ABG pO2 ABG HCO3 ABG Base Excess ABG Hemoglobin Oxyhemoglobin Sodium Potassium Chloride Carbon Dioxide BUN 94 H Creatinine 2.3 H Glucose 106 H POC Glucose 173 H 140 H Lactic Acid Calcium Ionized Calcium Phosphorus Magnesium Direct Bilirubin AST ALT Alkaline Phosphatase Lactate Dehydrogenase Troponin T C-Reactive Protein Total Protein Albumin Prealbumin Triglycerides Cholesterol LDL Cholesterol Direct HDL Cholesterol 25-OH Vitamin D Total PTH Intact Urine pH Urine WBC (Auto) Urine Creatinine Urine Total Protein Fluid Total Protein Vancomycin Trough Rheumatoid Factor Complement C4 Miscellaneous Test Crossmatch 02/18/17 02/18/17 02/18/17 00:20 05:30 06:14 WBC RBC Hgb Hct MCV MCH MCHC RDW Plt Count Lymph % (Auto) [place] % (Auto) Lymph # [place] # Baso # Seg Neutrophils % Seg Neuts % (Manual) Lymphocytes % (Manual) Monocytes % (Manual) Eosinophils % (Manual) Basophils % (Manual) Nucleated RBC % Seg Neutrophils # Seg Neutrophils # Man Lymphocytes # (Manual) Monocytes # (Manual) Eosinophils # (Manual) Basophils # (Manual) PT INR Fibrinogen dRVVT Confirm Interp Factor V Activity POC ABG pH POC ABG pCO2 POC ABG pO2 ABG pO2 ABG HCO3 ABG Base Excess ABG Hemoglobin Oxyhemoglobin Sodium 136 L Potassium Chloride 97.5 L Carbon Dioxide BUN 73 H Creatinine 1.9 H Glucose POC Glucose 132 H 106 H Lactic Acid Calcium Ionized Calcium Phosphorus Magnesium Direct Bilirubin AST ALT Alkaline Phosphatase Lactate Dehydrogenase Troponin T C-Reactive Protein Total Protein Albumin Prealbumin Triglycerides Cholesterol LDL Cholesterol Direct HDL Cholesterol 25-OH Vitamin D Total PTH Intact Urine pH Urine WBC (Auto) Urine Creatinine Urine Total Protein Fluid Total Protein Vancomycin Trough Rheumatoid Factor Complement C4 Miscellaneous Test Crossmatch 02/18/17 02/18/17 02/18/17 09:51 11:32 17:59 WBC 13.1 H RBC 2.77 L Hgb 7.6 L Hct 23.9 L MCV MCH MCHC RDW 19.0 H Plt Count Lymph % (Auto) [place] % (Auto) 11.1 H Lymph # [place] # 1.5 H Baso # Seg Neutrophils % Seg Neuts % (Manual) Lymphocytes % (Manual) Monocytes % (Manual) Eosinophils % (Manual) Basophils % (Manual) Nucleated RBC % Seg Neutrophils # 9.1 H Seg Neutrophils # Man Lymphocytes # (Manual) Monocytes # (Manual) Eosinophils # (Manual) Basophils # (Manual) PT INR Fibrinogen dRVVT Confirm Interp Factor V Activity POC ABG pH POC ABG pCO2 POC ABG pO2 ABG pO2 ABG HCO3 ABG Base Excess ABG Hemoglobin Oxyhemoglobin Sodium Potassium Chloride Carbon Dioxide BUN Creatinine Glucose POC Glucose 123 H 119 H Lactic Acid Calcium Ionized Calcium Phosphorus Magnesium Direct Bilirubin AST ALT Alkaline Phosphatase Lactate Dehydrogenase Troponin T C-Reactive Protein Total Protein Albumin Prealbumin Triglycerides Cholesterol LDL Cholesterol Direct HDL Cholesterol 25-OH Vitamin D Total PTH Intact Urine pH Urine WBC (Auto) Urine Creatinine Urine Total Protein Fluid Total Protein Vancomycin Trough Rheumatoid Factor Complement C4 Miscellaneous Test Crossmatch 02/18/17 02/19/17 02/19/17 23:47 05:36 09:45 WBC RBC Hgb Hct MCV MCH 27 L MCHC RDW 19.2 H Plt Count Lymph % (Auto) [place] % (Auto) Lymph # [place] # Baso # Seg Neutrophils % Seg Neuts % (Manual) Lymphocytes % (Manual) Monocytes % (Manual) Eosinophils % (Manual) Basophils % (Manual) Nucleated RBC % Seg Neutrophils # Seg Neutrophils # Man Lymphocytes # (Manual) Monocytes # (Manual) Eosinophils # (Manual) Basophils # (Manual) PT INR Fibrinogen dRVVT Confirm Interp Factor V Activity POC ABG pH POC ABG pCO2 POC ABG pO2 ABG pO2 ABG HCO3 ABG Base Excess ABG Hemoglobin Oxyhemoglobin Sodium Potassium Chloride Carbon Dioxide BUN Creatinine Glucose POC Glucose 110 H 121 H Lactic Acid Calcium Ionized Calcium Phosphorus Magnesium Direct Bilirubin AST ALT Alkaline Phosphatase Lactate Dehydrogenase Troponin T C-Reactive Protein Total Protein Albumin Prealbumin Triglycerides Cholesterol LDL Cholesterol Direct HDL Cholesterol 25-OH Vitamin D Total PTH Intact Urine pH Urine WBC (Auto) Urine Creatinine Urine Total Protein Fluid Total Protein Vancomycin Trough Rheumatoid Factor Complement C4 Miscellaneous Test Crossmatch 02/19/17 02/20/17 02/20/17 09:45 00:10 06:15 WBC RBC Hgb Hct MCV MCH MCHC RDW Plt Count Lymph % (Auto) [place] % (Auto) Lymph # [place] # Baso # Seg Neutrophils % Seg Neuts % (Manual) Lymphocytes % (Manual) Monocytes % (Manual) Eosinophils % (Manual) Basophils % (Manual) Nucleated RBC % Seg Neutrophils # Seg Neutrophils # Man Lymphocytes # (Manual) Monocytes # (Manual) Eosinophils # (Manual) Basophils # (Manual) PT INR Fibrinogen dRVVT Confirm Interp Factor V Activity POC ABG pH POC ABG pCO2 POC ABG pO2 ABG pO2 ABG HCO3 ABG Base Excess ABG Hemoglobin Oxyhemoglobin Sodium 136 L Potassium 5.1 H Chloride 97.6 L Carbon Dioxide 20 L 18 L BUN 110 H 135 H Creatinine 2.6 H 3.2 H Glucose 106 H 110 H POC Glucose 117 H Lactic Acid Calcium Ionized Calcium Phosphorus 4.70 H D 5.60 H Magnesium Direct Bilirubin AST ALT Alkaline Phosphatase Lactate Dehydrogenase Troponin T C-Reactive Protein Total Protein Albumin Prealbumin Triglycerides Cholesterol LDL Cholesterol Direct HDL Cholesterol 25-OH Vitamin D Total PTH Intact Urine pH Urine WBC (Auto) Urine Creatinine Urine Total Protein Fluid Total Protein Vancomycin Trough Rheumatoid Factor Complement C4 Miscellaneous Test Crossmatch 02/20/17 02/20/17 02/21/17 11:30 17:51 00:14 WBC RBC Hgb Hct MCV MCH MCHC RDW Plt Count Lymph % (Auto) [place] % (Auto) Lymph # [place] # Baso # Seg Neutrophils % Seg Neuts % (Manual) Lymphocytes % (Manual) Monocytes % (Manual) Eosinophils % (Manual) Basophils % (Manual) Nucleated RBC % Seg Neutrophils # Seg Neutrophils # Man Lymphocytes # (Manual) Monocytes # (Manual) Eosinophils # (Manual) Basophils # (Manual) PT INR Fibrinogen dRVVT Confirm Interp Factor V Activity POC ABG pH POC ABG pCO2 POC ABG pO2 ABG pO2 ABG HCO3 ABG Base Excess ABG Hemoglobin Oxyhemoglobin Sodium Potassium Chloride Carbon Dioxide BUN Creatinine Glucose POC Glucose 173 H 133 H 125 H Lactic Acid Calcium Ionized Calcium Phosphorus Magnesium Direct Bilirubin AST ALT Alkaline Phosphatase Lactate Dehydrogenase Troponin T C-Reactive Protein Total Protein Albumin Prealbumin Triglycerides Cholesterol LDL Cholesterol Direct HDL Cholesterol 25-OH Vitamin D Total PTH Intact Urine pH Urine WBC (Auto) Urine Creatinine Urine Total Protein Fluid Total Protein Vancomycin Trough Rheumatoid Factor Complement C4 Miscellaneous Test Crossmatch 02/21/17 02/21/17 02/21/17 04:09 05:03 11:58 WBC RBC Hgb Hct MCV MCH MCHC RDW Plt Count Lymph % (Auto) [place] % (Auto) Lymph # [place] # Baso # Seg Neutrophils % Seg Neuts % (Manual) Lymphocytes % (Manual) Monocytes % (Manual) Eosinophils % (Manual) Basophils % (Manual) Nucleated RBC % Seg Neutrophils # Seg Neutrophils # Man Lymphocytes # (Manual) Monocytes # (Manual) Eosinophils # (Manual) Basophils # (Manual) PT INR Fibrinogen dRVVT Confirm Interp Factor V Activity POC ABG pH POC ABG pCO2 POC ABG pO2 ABG pO2 ABG HCO3 ABG Base Excess ABG Hemoglobin Oxyhemoglobin Sodium 135 L Potassium Chloride Carbon Dioxide 20 L BUN 76 H Creatinine 2.0 H Glucose 125 H POC Glucose 134 H 139 H Lactic Acid Calcium Ionized Calcium Phosphorus Magnesium Direct Bilirubin AST ALT Alkaline Phosphatase Lactate Dehydrogenase Troponin T C-Reactive Protein Total Protein Albumin Prealbumin Triglycerides Cholesterol LDL Cholesterol Direct HDL Cholesterol 25-OH Vitamin D Total PTH Intact Urine pH Urine WBC (Auto) Urine Creatinine Urine Total Protein Fluid Total Protein Vancomycin Trough Rheumatoid Factor Complement C4 Miscellaneous Test Crossmatch 02/21/17 02/21/17 02/22/17 17:16 23:41 04:10 WBC RBC Hgb Hct MCV MCH MCHC RDW Plt Count Lymph % (Auto) [place] % (Auto) Lymph # [place] # Baso # Seg Neutrophils % Seg Neuts % (Manual) Lymphocytes % (Manual) Monocytes % (Manual) Eosinophils % (Manual) Basophils % (Manual) Nucleated RBC % Seg Neutrophils # Seg Neutrophils # Man Lymphocytes # (Manual) Monocytes # (Manual) Eosinophils # (Manual) Basophils # (Manual) PT INR Fibrinogen dRVVT Confirm Interp Factor V Activity POC ABG pH POC ABG pCO2 POC ABG pO2 ABG pO2 ABG HCO3 ABG Base Excess ABG Hemoglobin Oxyhemoglobin Sodium 135 L Potassium Chloride 97.7 L Carbon Dioxide 21 L BUN 101 H Creatinine 2.5 H Glucose 116 H POC Glucose 120 H 128 H Lactic Acid Calcium Ionized Calcium Phosphorus Magnesium Direct Bilirubin AST ALT Alkaline Phosphatase Lactate Dehydrogenase Troponin T C-Reactive Protein Total Protein Albumin 1.3 L Prealbumin Triglycerides Cholesterol LDL Cholesterol Direct HDL Cholesterol 25-OH Vitamin D Total PTH Intact Urine pH Urine WBC (Auto) Urine Creatinine Urine Total Protein Fluid Total Protein Vancomycin Trough Rheumatoid Factor Complement C4 Miscellaneous Test Crossmatch 02/22/17 02/22/17 02/22/17 06:03 11:38 18:19 WBC RBC Hgb Hct MCV MCH MCHC RDW Plt Count Lymph % (Auto) [place] % (Auto) Lymph # [place] # Baso # Seg Neutrophils % Seg Neuts % (Manual) Lymphocytes % (Manual) Monocytes % (Manual) Eosinophils % (Manual) Basophils % (Manual) Nucleated RBC % Seg Neutrophils # Seg Neutrophils # Man Lymphocytes # (Manual) Monocytes # (Manual) Eosinophils # (Manual) Basophils # (Manual) PT INR Fibrinogen dRVVT Confirm Interp Factor V Activity POC ABG pH POC ABG pCO2 POC ABG pO2 ABG pO2 ABG HCO3 ABG Base Excess ABG Hemoglobin Oxyhemoglobin Sodium Potassium Chloride Carbon Dioxide BUN Creatinine Glucose POC Glucose 126 H 147 H 121 H Lactic Acid Calcium Ionized Calcium Phosphorus Magnesium Direct Bilirubin AST ALT Alkaline Phosphatase Lactate Dehydrogenase Troponin T C-Reactive Protein Total Protein Albumin Prealbumin Triglycerides Cholesterol LDL Cholesterol Direct HDL Cholesterol 25-OH Vitamin D Total PTH Intact Urine pH Urine WBC (Auto) Urine Creatinine Urine Total Protein Fluid Total Protein Vancomycin Trough Rheumatoid Factor Complement C4 Miscellaneous Test Crossmatch 02/23/17 02/23/17 02/23/17 05:00 05:46 12:27 WBC RBC Hgb Hct MCV MCH MCHC RDW Plt Count Lymph % (Auto) [place] % (Auto) Lymph # [place] # Baso # Seg Neutrophils % Seg Neuts % (Manual) Lymphocytes % (Manual) Monocytes % (Manual) Eosinophils % (Manual) Basophils % (Manual) Nucleated RBC % Seg Neutrophils # Seg Neutrophils # Man Lymphocytes # (Manual) Monocytes # (Manual) Eosinophils # (Manual) Basophils # (Manual) PT INR Fibrinogen dRVVT Confirm Interp Factor V Activity POC ABG pH POC ABG pCO2 POC ABG pO2 ABG pO2 ABG HCO3 ABG Base Excess ABG Hemoglobin Oxyhemoglobin Sodium 136 L Potassium Chloride 97.1 L Carbon Dioxide BUN 50 H Creatinine 1.5 H Glucose POC Glucose 110 H 115 H Lactic Acid Calcium 8.1 L Ionized Calcium Phosphorus 1.90 L D Magnesium Direct Bilirubin AST ALT Alkaline Phosphatase Lactate Dehydrogenase Troponin T C-Reactive Protein Total Protein Albumin Prealbumin Triglycerides Cholesterol LDL Cholesterol Direct HDL Cholesterol 25-OH Vitamin D Total PTH Intact Urine pH Urine WBC (Auto) Urine Creatinine Urine Total Protein Fluid Total Protein Vancomycin Trough Rheumatoid Factor Complement C4 Miscellaneous Test Crossmatch 02/23/17 02/23/17 02/24/17 18:02 23:18 05:04 WBC RBC Hgb Hct MCV MCH MCHC RDW Plt Count Lymph % (Auto) [place] % (Auto) Lymph # [place] # Baso # Seg Neutrophils % Seg Neuts % (Manual) Lymphocytes % (Manual) Monocytes % (Manual) Eosinophils % (Manual) Basophils % (Manual) Nucleated RBC % Seg Neutrophils # Seg Neutrophils # Man Lymphocytes # (Manual) Monocytes # (Manual) Eosinophils # (Manual) Basophils # (Manual) PT INR Fibrinogen dRVVT Confirm Interp Factor V Activity POC ABG pH POC ABG pCO2 POC ABG pO2 ABG pO2 ABG HCO3 ABG Base Excess ABG Hemoglobin Oxyhemoglobin Sodium Potassium Chloride Carbon Dioxide BUN Creatinine Glucose POC Glucose 111 H 126 H 121 H Lactic Acid Calcium Ionized Calcium Phosphorus Magnesium Direct Bilirubin AST ALT Alkaline Phosphatase Lactate Dehydrogenase Troponin T C-Reactive Protein Total Protein Albumin Prealbumin Triglycerides Cholesterol LDL Cholesterol Direct HDL Cholesterol 25-OH Vitamin D Total PTH Intact Urine pH Urine WBC (Auto) Urine Creatinine Urine Total Protein Fluid Total Protein Vancomycin Trough Rheumatoid Factor Complement C4 Miscellaneous Test Crossmatch 02/24/17 02/24/17 02/24/17 05:20 10:05 11:34 WBC RBC 2.95 L Hgb 8.4 L Hct 25.7 L MCV MCH MCHC RDW 20.8 H Plt Count Lymph % (Auto) [place] % (Auto) Lymph # [place] # Baso # Seg Neutrophils % 71.8 H Seg Neuts % (Manual) Lymphocytes % (Manual) Monocytes % (Manual) Eosinophils % (Manual) Basophils % (Manual) Nucleated RBC % Seg Neutrophils # Seg Neutrophils # Man Lymphocytes # (Manual) Monocytes # (Manual) Eosinophils # (Manual) Basophils # (Manual) PT INR Fibrinogen dRVVT Confirm Interp Factor V Activity POC ABG pH POC ABG pCO2 POC ABG pO2 ABG pO2 ABG HCO3 ABG Base Excess ABG Hemoglobin Oxyhemoglobin Sodium 136 L Potassium Chloride 95.5 L Carbon Dioxide BUN 76 H Creatinine 2.2 H Glucose 109 H POC Glucose 123 H Lactic Acid Calcium Ionized Calcium Phosphorus Magnesium Direct Bilirubin AST ALT Alkaline Phosphatase Lactate Dehydrogenase Troponin T C-Reactive Protein Total Protein Albumin Prealbumin Triglycerides Cholesterol LDL Cholesterol Direct HDL Cholesterol 25-OH Vitamin D Total PTH Intact Urine pH Urine WBC (Auto) Urine Creatinine Urine Total Protein Fluid Total Protein Vancomycin Trough Rheumatoid Factor Complement C4 Miscellaneous Test Crossmatch 02/24/17 02/24/17 02/25/17 17:43 23:02 05:00 WBC RBC Hgb Hct MCV MCH MCHC RDW Plt Count Lymph % (Auto) [place] % (Auto) Lymph # [place] # Baso # Seg Neutrophils % Seg Neuts % (Manual) Lymphocytes % (Manual) Monocytes % (Manual) Eosinophils % (Manual) Basophils % (Manual) Nucleated RBC % Seg Neutrophils # Seg Neutrophils # Man Lymphocytes # (Manual) Monocytes # (Manual) Eosinophils # (Manual) Basophils # (Manual) PT INR Fibrinogen dRVVT Confirm Interp Factor V Activity POC ABG pH POC ABG pCO2 POC ABG pO2 ABG pO2 ABG HCO3 ABG Base Excess ABG Hemoglobin Oxyhemoglobin Sodium Potassium Chloride 96.8 L Carbon Dioxide BUN 94 H Creatinine 2.8 H Glucose 118 H POC Glucose 128 H 144 H Lactic Acid Calcium Ionized Calcium Phosphorus Magnesium Direct Bilirubin AST ALT Alkaline Phosphatase Lactate Dehydrogenase Troponin T C-Reactive Protein Total Protein Albumin Prealbumin Triglycerides Cholesterol LDL Cholesterol Direct HDL Cholesterol 25-OH Vitamin D Total PTH Intact Urine pH Urine WBC (Auto) Urine Creatinine Urine Total Protein Fluid Total Protein Vancomycin Trough Rheumatoid Factor Complement C4 Miscellaneous Test Crossmatch 02/25/17 02/25/17 05:32 11:44 WBC RBC Hgb Hct MCV MCH MCHC RDW Plt Count Lymph % (Auto) [place] % (Auto) Lymph # [place] # Baso # Seg Neutrophils % Seg Neuts % (Manual) Lymphocytes % (Manual) Monocytes % (Manual) Eosinophils % (Manual) Basophils % (Manual) Nucleated RBC % Seg Neutrophils # Seg Neutrophils # Man Lymphocytes # (Manual) Monocytes # (Manual) Eosinophils # (Manual) Basophils # (Manual) PT INR Fibrinogen dRVVT Confirm Interp Factor V Activity POC ABG pH POC ABG pCO2 POC ABG pO2 ABG pO2 ABG HCO3 ABG Base Excess ABG Hemoglobin Oxyhemoglobin Sodium Potassium Chloride Carbon Dioxide BUN Creatinine Glucose POC Glucose 118 H 106 H Lactic Acid Calcium Ionized Calcium Phosphorus Magnesium Direct Bilirubin AST ALT Alkaline Phosphatase Lactate Dehydrogenase Troponin T C-Reactive Protein Total Protein Albumin Prealbumin Triglycerides Cholesterol LDL Cholesterol Direct HDL Cholesterol 25-OH Vitamin D Total PTH Intact Urine pH Urine WBC (Auto) Urine Creatinine Urine Total Protein Fluid Total Protein Vancomycin Trough Rheumatoid Factor Complement C4 Miscellaneous Test Crossmatch Allied health notes reviewed: RT
[2017-02-25] MEDS ORDERED: NACL 0.9% 100 ML IV PRN (15:02)
[2017-02-25] MEDS: HEPARIN IV PRN (19:25)
[2017-02-25] MEDS ORDERED: TPN ADULT IV SCH (20:00)
[2017-02-26] MEDS: HumuLIN R SUB-Q SCH ×4 (00:07→18:36)
[2017-02-26] MEDS: REGLAN IV SCH ×3 (05:38→21:55)
--- NOTE | 2017-02-26 07:41 | Progress Note ---
Subjective Principal diagnosis: Acute resp failure on MVS; S/P Acute CVA; Acute Encephalopathy; JUANITA Interval history: Patient was seen today for follow-up on multiple renal related issues patient is currently resting in bed comfortably Vitals labs intake output medications were reviewed Social history: Reviewed Allergies: Reviewed Family history: Reviewed Physical examination HEENT: Oral mucosa moist no pallor or icterus Neck: Supple no JVD Chest: Clear to auscultation anteriorly CVS: Regular rate and rhythm apical heart rate 113/m S1 and S2 heard Abdomen: Soft nontender no suprapubic masses no organomegaly appreciable Extremity: Dry skin less than 1+ peripheral edema Musculoskeletal: No joint effusion noted in knees and ankle Dermatology: No petechial rashes Psychiatry: No evidence of any agitation and aggression noted Assessment and plan End-stage renal disease patient has shown no recovery of renal function she is currently dialysis dependent with a permacath, normal dialysis days are Monday hemodialysis was held on Monday due to tachycardia that needs to be monitored Tachycardia variable currently between 100- 115 Hypophosphatemia currently stable to better Secondary hyperparathyroidism: To monitor and follow phosphorus and PTH level phosphorus has been relatively low periodically will need replacement, current phosphorus 3.0 Status post acute CVA, bacteremia, Hypotension tachycardia: To monitor and follow Respiratory failure currently ventilator dependent status post tracheotomy History of gram-negative sepsis, candidemia, peritonitis Persistent vegetative state Atrial fibrillation, diabetes, hyperlipidemia, renovascular hypertension, sacral decubitus ulcer We'll continue to follow and make recommendation from renal standpoint Objective - Vital Signs Vital signs: Vital Signs - 12hr 02/25/17 02/25/17 02/25/17 19:42 19:46 20:00 Temperature 98.4 F Pulse Rate 106 H 106 H Pulse Rate [ 109 H 113 H Throughout] Respiratory 22 Rate Respiratory 24 22 Rate [ Throughout] Blood Pressure 117/66 106/66 O2 Sat by Pulse 100 100 Oximetry O2 Sat by Pulse Oximetry [ Assessment] 02/25/17 02/25/17 02/25/17 21:00 22:00 23:00 Temperature Pulse Rate 113 H 109 H 107 H Pulse Rate [ Throughout] Respiratory 24 21 21 Rate Respiratory Rate [ Throughout] Blood Pressure 97/56 116/67 119/68 O2 Sat by Pulse 99 100 100 Oximetry O2 Sat by Pulse Oximetry [ Assessment] 02/25/17 02/25/17 02/25/17 23:04 23:41 23:50 Temperature 98.9 F Pulse Rate 111 H 109 H Pulse Rate [ Throughout] Respiratory 29 H Rate Respiratory Rate [ Throughout] Blood Pressure 119/68 116/69 O2 Sat by Pulse 100 100 Oximetry O2 Sat by Pulse Oximetry [ Assessment] 02/26/17 02/26/17 02/26/17 00:00 01:00 02:00 Temperature Pulse Rate 118 H 117 H 113 H Pulse Rate [ Throughout] Respiratory 29 H 25 H 18 Rate Respiratory Rate [ Throughout] Blood Pressure 105/63 123/71 116/64 O2 Sat by Pulse 100 100 100 Oximetry O2 Sat by Pulse Oximetry [ Assessment] 02/26/17 02/26/17 02/26/17 03:00 03:35 04:00 Temperature 101.6 F H Pulse Rate 111 H Pulse Rate [ Throughout] Respiratory 17 28 H Rate Respiratory Rate [ Throughout] Blood Pressure 130/64 119/54 O2 Sat by Pulse 100 96 Oximetry O2 Sat by Pulse 97 Oximetry [ Assessment] 02/26/17 02/26/17 02/26/17 04:38 04:45 05:00 Temperature Pulse Rate 124 H 111 H 116 H Pulse Rate [ Throughout] Respiratory 23 Rate Respiratory Rate [ Throughout] Blood Pressure 132/88 105/48 O2 Sat by Pulse 97 99 100 Oximetry O2 Sat by Pulse Oximetry [ Assessment] 02/26/17 02/26/17 02/26/17 06:00 06:15 07:00 Temperature Pulse Rate 114 H 112 H Pulse Rate [ Throughout] Respiratory 21 22 Rate Respiratory Rate [ Throughout] Blood Pressure 100/61 124/61 O2 Sat by Pulse 100 99 100 Oximetry O2 Sat by Pulse Oximetry [ Assessment] - Lab 02/24/17 10:05 02/25/17 05:00 Most recent lab results ABG pH 7.450 pH Units (7.350-7.450) 12/05/16 Unknown ABG pCO2 29.6 mm Hg 12/05/16 Unknown ABG pO2 75.2 mm Hg (80.0-90.0) L 12/05/16 Unknown ABG HCO3 20.1 mmol/L (20.0-26.0) 12/05/16 Unknown ABG O2 Saturation 96.8 % (95.0-99.0) 12/05/16 Unknown Calcium 9.5 mg/dL (8.4-10.2) 02/25/17 05:00 Phosphorus 4.00 mg/dL (2.5-4.5) D 02/25/17 05:00 Magnesium 1.80 mg/dL (1.7-2.3) 02/25/17 05:00 Urine Creatinine 19.7 mg/dL (0.1-20.0) 11/12/16 10:18 Urine Sodium 36 mEq/L 09/16/16 19:19 Urine Total Protein 16 mg/dL (5-11.8) H 09/16/16 19:19
[2017-02-26] MEDS: DUONEB *Not for PRN Use IH SCH ×3 (08:51→19:28)
--- NOTE | 2017-02-26 09:59 | XRay Report ---
FINAL REPORT EXAM: XR CHEST 1V AP HISTORY: pleural effusion, respiratory failure TECHNIQUE: Chest, portable semi upright its PRIORS: 02/20/2017 FINDINGS: There is a tracheostomy tube present. A nasogastric tube terminates in the stomach. Left central line is unchanged with catheter tip in right atrium. No pneumothorax seen. There is small to moderate right pleural effusion. There is right lower lobe infiltrate versus atelectasis. Left lung is clear. No pneumothorax seen. IMPRESSION: Unchanged small to moderate right pleural effusion with right lower lobe airspace disease.
[2017-02-26] MEDS: HEPARIN SUB-Q SCH ×2 (10:58→21:55)
[2017-02-26] MEDS: PEPCID IV SCH (10:59)
[2017-02-26] MEDS: CORDARONE 900 MG in D5W 482 ML IV SCH ×2 (14:01→20:05)
[2017-02-26] MEDS ORDERED: TPN ADULT IV SCH (20:00)
[2017-02-27] MEDS: HumuLIN R SUB-Q SCH ×4 (00:40→17:37)
[2017-02-27] MEDS: REGLAN IV SCH ×3 (06:44→21:18)
[2017-02-27] MEDS: DUONEB *Not for PRN Use IH SCH ×3 (08:09→19:17)
[2017-02-27 09:28] LABS: Calcium 9.9 mg/dL (8.4-10.2)
[2017-02-27] MEDS: PEPCID IV SCH (10:02)
[2017-02-27] MEDS: HEPARIN SUB-Q SCH ×2 (10:05→21:18)
--- NOTE | 2017-02-27 10:07 | Progress Note ---
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 UF as tolerated. Patient's serum creatinine is noted to be low - due to wasting of muscle mass. Needs to be maintained on dialysis at this time * Adjust Ca bath with dialysis * Rate control per cardiology * Transfuse pRBC per primary team. Epogen TIW prn * Vent management per pulm/CCM * Pressors prn for MAP>65 * Dose medications for renal function Subjective Date of service: 02/27/17 Principal diagnosis: Acute resp failure on MVS; S/P Acute CVA; Acute Encephalopathy; JUANITA Interval history: No acute events overnight Objective - Vital Signs Vital signs: Vital Signs - 12hr 02/26/17 02/26/17 02/26/17 23:00 23:15 23:30 Temperature Pulse Rate 111 H 111 H Pulse Rate [ Anterior Bilateral Throughout] Respiratory 15 Rate Respiratory Rate [Anterior Bilateral Throughout] Blood Pressure 98/59 98/59 O2 Sat by Pulse 100 100 Oximetry O2 Sat by Pulse 100 Oximetry [ Assessment] 02/27/17 02/27/17 02/27/17 00:00 01:00 02:00 Temperature 101.2 F H Pulse Rate 109 H 107 H 105 H Pulse Rate [ Anterior Bilateral Throughout] Respiratory 18 16 17 Rate Respiratory Rate [Anterior Bilateral Throughout] Blood Pressure 90/57 114/61 114/62 O2 Sat by Pulse 100 100 100 Oximetry O2 Sat by Pulse Oximetry [ Assessment] 02/27/17 02/27/17 02/27/17 03:00 04:00 04:46 Temperature 99.5 F Pulse Rate 104 H 106 H 106 H Pulse Rate [ Anterior Bilateral Throughout] Respiratory 20 22 Rate Respiratory Rate [Anterior Bilateral Throughout] Blood Pressure 121/68 135/76 135/76 O2 Sat by Pulse 100 100 100 Oximetry O2 Sat by Pulse Oximetry [ Assessment] 02/27/17 02/27/17 02/27/17 05:00 06:00 07:00 Temperature Pulse Rate 108 H 107 H 100 H Pulse Rate [ Anterior Bilateral Throughout] Respiratory 19 24 21 Rate Respiratory Rate [Anterior Bilateral Throughout] Blood Pressure 132/74 172/97 135/80 O2 Sat by Pulse 100 95 97 Oximetry O2 Sat by Pulse Oximetry [ Assessment] 02/27/17 02/27/17 02/27/17 08:00 08:09 08:25 Temperature 98.9 F Pulse Rate 107 H 108 H Pulse Rate [ 105 H 107 H Anterior Bilateral Throughout] Respiratory 29 H Rate Respiratory 23 27 H Rate [Anterior Bilateral Throughout] Blood Pressure 133/76 133/76 O2 Sat by Pulse 95 100 Oximetry O2 Sat by Pulse 100 Oximetry [ Assessment] - General Appearance General appearance: other (NAD) EENT: ATNC Respiratory: Present: Other (coarse BS) Cardiology: tachycardia, S1S2 Gastrointestinal: hypoactive bowel sounds Neurologic: other (patient does not respond to tactile/verbal stimuli) Musculoskeletal: other (+dependent edema thigh) - Lab 02/24/17 10:05 02/27/17 08:50 Most recent lab results ABG pH 7.450 pH Units (7.350-7.450) 12/05/16 Unknown ABG pCO2 29.6 mm Hg 12/05/16 Unknown ABG pO2 75.2 mm Hg (80.0-90.0) L 12/05/16 Unknown ABG HCO3 20.1 mmol/L (20.0-26.0) 12/05/16 Unknown ABG O2 Saturation 96.8 % (95.0-99.0) 12/05/16 Unknown Calcium 9.9 mg/dL (8.4-10.2) 02/27/17 08:50 Phosphorus 3.50 mg/dL (2.5-4.5) 02/27/17 08:50 Magnesium 1.90 mg/dL (1.7-2.3) 02/27/17 08:50 Urine Creatinine 19.7 mg/dL (0.1-20.0) 11/12/16 10:18 Urine Sodium 36 mEq/L 09/16/16 19:19 Urine Total Protein 16 mg/dL (5-11.8) H 09/16/16 19:19
[2017-02-27] MEDS ORDERED: WATER FOR INJ (PF) 10 ML ONE (10:28)
[2017-02-27] MEDS ORDERED: CATHFLO IV ONE (11:00)
--- NOTE | 2017-02-27 11:23 | Progress Note ---
Assessment and Plan Acute Hypoxemic Respiratory Failure (now with exacerbation and back on MVS) Hypertension (unable to receive p.o. meds) Atrial Fibrillation with RVR s/p tracheostomy Acute encephalopathy s/p CVA Oropharyngeal dysphagia Enterococcal bacteremia sepsis syndrome Sacral Decubitus Ulcer (s/p surgical debridement) Anemia Obesity JUANITA now on hemodialysis Enteric Fistula - keep on with daily PSV trials and hope fully resume T-piece in am as tolerated - scheduled IV metoprolol with hold parameters - stop Amiodarone drip once rate better controlled - continue to hold tube feeds due to continued intolerance; continue reglan at 10mg IV q8h - continue NGT to LIS - IR earlier consulted for G-J tube (not a good candidate for G-J Tube per IR) - remains on amiodarone drip for persistent tachycardia (improving) - Pleural fluid cultures negative - unfortunately not a good candidate for a VATS procedure - prn CXR's - appreciate surgery input - continue fentanyl patch for pain issues especially s/p debridement - continue wound care per WCT and RN's (she is s/p surgical debridement) - continue anti-infectives per ID recs (Fortaz now) - prn CRP & lactate levels if clinically indicated (Follow WBC also - continue TPN administration - continue robinul & scopolamine for secretion control - continue to wean FiO2 for sats > 94% - continue bronchodilators and pulmonary toilet - VAP bundle addressed - continue to follow electrolytes and correct as necessary - continue GI & VTE prophylaxis - Continue flu & pneumovax per protocol - ethics consult placed and pending .....she remains critically ill on life sustaining interventions including MVS and at risk for further deterioration including ....35' CCT ....care plan discussed at length during team rounds ...shelter prognosis remains guarded and this has intermittently been conveyed to family Subjective Date of service: 02/27/17 Principal diagnosis: Acute resp failure on MVS; S/P Acute CVA; Acute Encephalopathy; JUANITA Interval history: Patient is seen today for: Acute resp failure on MVS; S/P Acute CVA; Acute Encephalopathy; JUANITA Seen and examined at bedside; 24hour events reviewed; nursing and respiratory care staff consulted; no adverse overnight events reported to me; remains on MVS ; AMS is persistent; no new issues otherwise; tolerating PSV at 12-14/5; no emesis or overt aspiration Objective Vital Signs - 12hr 02/26/17 02/27/17 02/27/17 23:30 00:00 01:00 Temperature 101.2 F H Pulse Rate 111 H 109 H 107 H Pulse Rate [ Anterior Bilateral Throughout] Respiratory 18 16 Rate Respiratory Rate [Anterior Bilateral Throughout] Blood Pressure 98/59 90/57 114/61 O2 Sat by Pulse 100 100 100 Oximetry O2 Sat by Pulse Oximetry [ Assessment] 02/27/17 02/27/17 02/27/17 02:00 03:00 04:00 Temperature 99.5 F Pulse Rate 105 H 104 H 106 H Pulse Rate [ Anterior Bilateral Throughout] Respiratory 17 20 22 Rate Respiratory Rate [Anterior Bilateral Throughout] Blood Pressure 114/62 121/68 135/76 O2 Sat by Pulse 100 100 100 Oximetry O2 Sat by Pulse Oximetry [ Assessment] 02/27/17 02/27/17 02/27/17 04:46 05:00 06:00 Temperature Pulse Rate 106 H 108 H 107 H Pulse Rate [ Anterior Bilateral Throughout] Respiratory 19 24 Rate Respiratory Rate [Anterior Bilateral Throughout] Blood Pressure 135/76 132/74 172/97 O2 Sat by Pulse 100 100 95 Oximetry O2 Sat by Pulse Oximetry [ Assessment] 02/27/17 02/27/17 02/27/17 07:00 08:00 08:09 Temperature 98.9 F Pulse Rate 100 H 107 H Pulse Rate [ 105 H Anterior Bilateral Throughout] Respiratory 21 Rate Respiratory 23 Rate [Anterior Bilateral Throughout] Blood Pressure 135/80 133/76 O2 Sat by Pulse 97 95 Oximetry O2 Sat by Pulse Oximetry [ Assessment] 02/27/17 08:25 Temperature Pulse Rate 108 H Pulse Rate [ 107 H Anterior Bilateral Throughout] Respiratory 29 H Rate Respiratory 27 H Rate [Anterior Bilateral Throughout] Blood Pressure 133/76 O2 Sat by Pulse 100 Oximetry O2 Sat by Pulse 100 Oximetry [ Assessment] Constitutional: appears uncomfortable, other (not tracking) Eyes: non-icteric, other (tracheostomy tube in midline of neck) ENT: oropharynx moist, oropharyngeal exudate pre, other (midline tracheostomy tube) Neck: supple, no lymphadenopathy, no JVD, other (no thyromegaly) Effort: mildly labored Ascultation: Bilateral: diminished breath sounds, rhonchi (and referred upper airway sounds) Percussion: Bilateral: not dull Cardiovascular: regular rate and rhythm, other (no rubs / murmurs) Gastrointestinal: hypoactive bowel sounds, soft, non-tender, non-distended, other (RLQ & LUQ stomas with colostomy bags) Integumentary: decubitus ulcer (sacral; stage 4 s/p surgical debridement), other (no rash; no cellulitis; poor turgor) Extremities: no cyanosis, pulses normal, no ischemia or petechiae, edema (1+ bilaterally) Neurologic: pupils equal and round, unable to assess, other (encephalopathic) Psychiatric: other (unable to assess) CBC and BMP: 02/24/17 10:05 03/02/17 03:05 ABG, PT/INR, D-dimer: ABG POC ABG pH 7.436 (7.35-7.45) 01/20/17 12:17 ABG pH 7.450 pH Units (7.350-7.450) 12/05/16 Unknown POC ABG pCO2 35.3 (35-45) 01/20/17 12:17 ABG pCO2 29.6 mm Hg 12/05/16 Unknown POC ABG pO2 70 (80-105) L 01/20/17 12:17 ABG pO2 75.2 mm Hg (80.0-90.0) L 12/05/16 Unknown POC ABG HCO3 23.8 01/20/17 12:17 POC ABG Total CO2 25 01/20/17 12:17 POC ABG O2 Sat 94 01/20/17 12:17 ABG O2 Saturation 96.8 % (95.0-99.0) 12/05/16 Unknown PT/INR, D-dimer PT 15.4 Sec. (12.2-14.9) H 01/13/17 15:50 INR 1.16 (0.87-1.13) H 01/13/17 15:50 Abnormal lab findings: Abnormal Labs 09/03/16 09/03/16 09/03/16 00:03 00:10 00:10 WBC 13.9 H RBC 5.95 H Hgb Hct 44.0 H MCV 74 L MCH 22 L MCHC RDW 17.5 H Plt Count Lymph % (Auto) [place] % (Auto) Lymph # [place] # Baso # Seg Neutrophils % Seg Neuts % (Manual) Lymphocytes % (Manual) 54.0 H Monocytes % (Manual) Eosinophils % (Manual) Basophils % (Manual) Nucleated RBC % Seg Neutrophils # Seg Neutrophils # Man Lymphocytes # (Manual) 7.5 H Monocytes # (Manual) Eosinophils # (Manual) Basophils # (Manual) PT INR Fibrinogen dRVVT Confirm Interp Factor V Activity POC ABG pH POC ABG pCO2 POC ABG pO2 ABG pO2 ABG HCO3 ABG Base Excess ABG Hemoglobin Oxyhemoglobin Sodium Potassium 2.8 L* Chloride Carbon Dioxide 21 L BUN Creatinine 1.7 H Glucose 159 H POC Glucose 177 H Lactic Acid Calcium Ionized Calcium Phosphorus Magnesium Direct Bilirubin AST ALT Alkaline Phosphatase Lactate Dehydrogenase Troponin T C-Reactive Protein Total Protein Albumin Prealbumin Triglycerides Cholesterol LDL Cholesterol Direct HDL Cholesterol 25-OH Vitamin D Total PTH Intact Urine pH Urine WBC (Auto) Urine Creatinine Urine Total Protein Fluid Total Protein Vancomycin Trough Rheumatoid Factor Complement C4 Miscellaneous Test Crossmatch 09/03/16 09/03/16 09/03/16 12:12 15:07 16:20 WBC RBC Hgb Hct MCV MCH MCHC RDW Plt Count Lymph % (Auto) [place] % (Auto) Lymph # [place] # Baso # Seg Neutrophils % Seg Neuts % (Manual) Lymphocytes % (Manual) Monocytes % (Manual) Eosinophils % (Manual) Basophils % (Manual) Nucleated RBC % Seg Neutrophils # Seg Neutrophils # Man Lymphocytes # (Manual) Monocytes # (Manual) Eosinophils # (Manual) Basophils # (Manual) PT INR Fibrinogen dRVVT Confirm Interp Factor V Activity POC ABG pH 7.452 H POC ABG pCO2 POC ABG pO2 ABG pO2 ABG HCO3 ABG Base Excess ABG Hemoglobin Oxyhemoglobin Sodium Potassium Chloride Carbon Dioxide BUN Creatinine Glucose POC Glucose 178 H Lactic Acid Calcium Ionized Calcium Phosphorus 2.20 L Magnesium 1.60 L Direct Bilirubin AST ALT Alkaline Phosphatase Lactate Dehydrogenase Troponin T C-Reactive Protein Total Protein Albumin Prealbumin Triglycerides Cholesterol LDL Cholesterol Direct HDL Cholesterol 25-OH Vitamin D Total PTH Intact Urine pH Urine WBC (Auto) Urine Creatinine Urine Total Protein Fluid Total Protein Vancomycin Trough Rheumatoid Factor Complement C4 Miscellaneous Test Crossmatch 09/03/16 09/03/16 09/03/16 17:57 17:58 23:50 WBC RBC Hgb Hct MCV MCH MCHC RDW Plt Count Lymph % (Auto) [place] % (Auto) Lymph # [place] # Baso # Seg Neutrophils % Seg Neuts % (Manual) Lymphocytes % (Manual) Monocytes % (Manual) Eosinophils % (Manual) Basophils % (Manual) Nucleated RBC % Seg Neutrophils # Seg Neutrophils # Man Lymphocytes # (Manual) Monocytes # (Manual) Eosinophils # (Manual) Basophils # (Manual) PT INR Fibrinogen dRVVT Confirm Interp Factor V Activity POC ABG pH POC ABG pCO2 POC ABG pO2 ABG pO2 ABG HCO3 ABG Base Excess ABG Hemoglobin Oxyhemoglobin Sodium Potassium Chloride Carbon Dioxide BUN Creatinine Glucose POC Glucose 162 H 145 H Lactic Acid Calcium Ionized Calcium Phosphorus 2.30 L Magnesium Direct Bilirubin AST ALT Alkaline Phosphatase Lactate Dehydrogenase Troponin T C-Reactive Protein Total Protein Albumin Prealbumin Triglycerides Cholesterol LDL Cholesterol Direct HDL Cholesterol 25-OH Vitamin D Total PTH Intact Urine pH Urine WBC (Auto) Urine Creatinine Urine Total Protein Fluid Total Protein Vancomycin Trough Rheumatoid Factor Complement C4 Miscellaneous Test Crossmatch 09/04/16 09/04/16 09/04/16 03:31 03:31 05:42 WBC RBC Hgb 9.7 L D Hct MCV 72 L MCH 23 L MCHC RDW 17.5 H Plt Count Lymph % (Auto) 11.1 L [place] % (Auto) Lymph # [place] # Baso # Seg Neutrophils % 84.3 H Seg Neuts % (Manual) Lymphocytes % (Manual) Monocytes % (Manual) Eosinophils % (Manual) Basophils % (Manual) Nucleated RBC % Seg Neutrophils # 8.9 H Seg Neutrophils # Man Lymphocytes # (Manual) Monocytes # (Manual) Eosinophils # (Manual) Basophils # (Manual) PT INR Fibrinogen dRVVT Confirm Interp Factor V Activity POC ABG pH POC ABG pCO2 POC ABG pO2 ABG pO2 ABG HCO3 ABG Base Excess ABG Hemoglobin Oxyhemoglobin Sodium 135 L Potassium 2.9 L* Chloride 97.2 L Carbon Dioxide 19 L BUN Creatinine 1.7 H Glucose 170 H POC Glucose 152 H Lactic Acid Calcium Ionized Calcium Phosphorus Magnesium Direct Bilirubin AST ALT Alkaline Phosphatase Lactate Dehydrogenase Troponin T C-Reactive Protein Total Protein Albumin Prealbumin Triglycerides 160 H Cholesterol LDL Cholesterol Direct HDL Cholesterol 31 L 25-OH Vitamin D Total PTH Intact Urine pH Urine WBC (Auto) Urine Creatinine Urine Total Protein Fluid Total Protein Vancomycin Trough Rheumatoid Factor Complement C4 Miscellaneous Test Crossmatch 09/04/16 09/04/16 09/04/16 11:34 17:46 23:29 WBC RBC Hgb Hct MCV MCH MCHC RDW Plt Count Lymph % (Auto) [place] % (Auto) Lymph # [place] # Baso # Seg Neutrophils % Seg Neuts % (Manual) Lymphocytes % (Manual) Monocytes % (Manual) Eosinophils % (Manual) Basophils % (Manual) Nucleated RBC % Seg Neutrophils # Seg Neutrophils # Man Lymphocytes # (Manual) Monocytes # (Manual) Eosinophils # (Manual) Basophils # (Manual) PT INR Fibrinogen dRVVT Confirm Interp Factor V Activity POC ABG pH POC ABG pCO2 POC ABG pO2 ABG pO2 ABG HCO3 ABG Base Excess ABG Hemoglobin Oxyhemoglobin Sodium Potassium Chloride Carbon Dioxide BUN Creatinine Glucose POC Glucose 165 H 210 H 139 H Lactic Acid Calcium Ionized Calcium Phosphorus Magnesium Direct Bilirubin AST ALT Alkaline Phosphatase Lactate Dehydrogenase Troponin T C-Reactive Protein Total Protein Albumin Prealbumin Triglycerides Cholesterol LDL Cholesterol Direct HDL Cholesterol 25-OH Vitamin D Total PTH Intact Urine pH Urine WBC (Auto) Urine Creatinine Urine Total Protein Fluid Total Protein Vancomycin Trough Rheumatoid Factor Complement C4 Miscellaneous Test Crossmatch 09/05/16 09/05/16 09/05/16 04:05 04:05 05:38 WBC RBC Hgb Hct MCV 76 L D MCH 23 L MCHC RDW 17.8 H Plt Count Lymph % (Auto) [place] % (Auto) Lymph # [place] # Baso # Seg Neutrophils % Seg Neuts % (Manual) Lymphocytes % (Manual) Monocytes % (Manual) Eosinophils % (Manual) Basophils % (Manual) Nucleated RBC % Seg Neutrophils # Seg Neutrophils # Man Lymphocytes # (Manual) Monocytes # (Manual) Eosinophils # (Manual) Basophils # (Manual) PT INR Fibrinogen dRVVT Confirm Interp Factor V Activity POC ABG pH POC ABG pCO2 POC ABG pO2 ABG pO2 ABG HCO3 ABG Base Excess ABG Hemoglobin Oxyhemoglobin Sodium 134 L Potassium Chloride Carbon Dioxide 18 L BUN Creatinine 1.8 H Glucose 192 H POC Glucose 175 H Lactic Acid Calcium Ionized Calcium Phosphorus Magnesium Direct Bilirubin AST ALT Alkaline Phosphatase Lactate Dehydrogenase Troponin T C-Reactive Protein Total Protein Albumin Prealbumin Triglycerides Cholesterol LDL Cholesterol Direct HDL Cholesterol 25-OH Vitamin D Total PTH Intact Urine pH Urine WBC (Auto) Urine Creatinine Urine Total Protein Fluid Total Protein Vancomycin Trough Rheumatoid Factor Complement C4 Miscellaneous Test Crossmatch 09/05/16 09/05/16 09/05/16 11:38 17:48 23:22 WBC RBC Hgb Hct MCV MCH MCHC RDW Plt Count Lymph % (Auto) [place] % (Auto) Lymph # [place] # Baso # Seg Neutrophils % Seg Neuts % (Manual) Lymphocytes % (Manual) Monocytes % (Manual) Eosinophils % (Manual) Basophils % (Manual) Nucleated RBC % Seg Neutrophils # Seg Neutrophils # Man Lymphocytes # (Manual) Monocytes # (Manual) Eosinophils # (Manual) Basophils # (Manual) PT INR Fibrinogen dRVVT Confirm Interp Factor V Activity POC ABG pH POC ABG pCO2 POC ABG pO2 ABG pO2 ABG HCO3 ABG Base Excess ABG Hemoglobin Oxyhemoglobin Sodium Potassium Chloride Carbon Dioxide BUN Creatinine Glucose POC Glucose 164 H 186 H 195 H Lactic Acid Calcium Ionized Calcium Phosphorus Magnesium Direct Bilirubin AST ALT Alkaline Phosphatase Lactate Dehydrogenase Troponin T C-Reactive Protein Total Protein Albumin Prealbumin Triglycerides Cholesterol LDL Cholesterol Direct HDL Cholesterol 25-OH Vitamin D Total PTH Intact Urine pH Urine WBC (Auto) Urine Creatinine Urine Total Protein Fluid Total Protein Vancomycin Trough Rheumatoid Factor Complement C4 Miscellaneous Test Crossmatch 09/06/16 09/06/16 09/06/16 04:12 05:59 07:32 WBC RBC Hgb Hct MCV MCH MCHC RDW Plt Count Lymph % (Auto) [place] % (Auto) Lymph # [place] # Baso # Seg Neutrophils % Seg Neuts % (Manual) Lymphocytes % (Manual) Monocytes % (Manual) Eosinophils % (Manual) Basophils % (Manual) Nucleated RBC % Seg Neutrophils # Seg Neutrophils # Man Lymphocytes # (Manual) Monocytes # (Manual) Eosinophils # (Manual) Basophils # (Manual) PT INR Fibrinogen dRVVT Confirm Interp Factor V Activity POC ABG pH 7.514 H POC ABG pCO2 29.1 L POC ABG pO2 72 L ABG pO2 ABG HCO3 ABG Base Excess ABG Hemoglobin Oxyhemoglobin Sodium 133 L Potassium 3.4 L Chloride 94.9 L Carbon Dioxide 19 L BUN 30 H Creatinine 2.1 H Glucose 139 H POC Glucose 146 H Lactic Acid Calcium Ionized Calcium Phosphorus Magnesium Direct Bilirubin AST ALT Alkaline Phosphatase Lactate Dehydrogenase Troponin T C-Reactive Protein Total Protein Albumin Prealbumin Triglycerides Cholesterol LDL Cholesterol Direct HDL Cholesterol 25-OH Vitamin D Total PTH Intact Urine pH Urine WBC (Auto) Urine Creatinine Urine Total Protein Fluid Total Protein Vancomycin Trough Rheumatoid Factor Complement C4 Miscellaneous Test Crossmatch 09/06/16 09/06/16 09/06/16 11:57 17:58 19:02 WBC RBC Hgb Hct MCV MCH MCHC RDW Plt Count Lymph % (Auto) [place] % (Auto) Lymph # [place] # Baso # Seg Neutrophils % Seg Neuts % (Manual) Lymphocytes % (Manual) Monocytes % (Manual) Eosinophils % (Manual) Basophils % (Manual) Nucleated RBC % Seg Neutrophils # Seg Neutrophils # Man Lymphocytes # (Manual) Monocytes # (Manual) Eosinophils # (Manual) Basophils # (Manual) PT INR Fibrinogen dRVVT Confirm Interp Factor V Activity POC ABG pH 7.465 H POC ABG pCO2 32.0 L POC ABG pO2 ABG pO2 ABG HCO3 ABG Base Excess ABG Hemoglobin Oxyhemoglobin Sodium Potassium Chloride Carbon Dioxide BUN Creatinine Glucose POC Glucose 165 H 160 H Lactic Acid Calcium Ionized Calcium Phosphorus Magnesium Direct Bilirubin AST ALT Alkaline Phosphatase Lactate Dehydrogenase Troponin T C-Reactive Protein Total Protein Albumin Prealbumin Triglycerides Cholesterol LDL Cholesterol Direct HDL Cholesterol 25-OH Vitamin D Total PTH Intact Urine pH Urine WBC (Auto) Urine Creatinine Urine Total Protein Fluid Total Protein Vancomycin Trough Rheumatoid Factor Complement C4 Miscellaneous Test Crossmatch 09/06/16 09/07/16 09/07/16 23:45 02:47 02:47 WBC RBC Hgb Hct MCV MCH MCHC RDW Plt Count Lymph % (Auto) [place] % (Auto) Lymph # [place] # Baso # Seg Neutrophils % Seg Neuts % (Manual) Lymphocytes % (Manual) Monocytes % (Manual) Eosinophils % (Manual) Basophils % (Manual) Nucleated RBC % Seg Neutrophils # Seg Neutrophils # Man Lymphocytes # (Manual) Monocytes # (Manual) Eosinophils # (Manual) Basophils # (Manual) PT INR Fibrinogen dRVVT Confirm Interp Factor V Activity POC ABG pH POC ABG pCO2 POC ABG pO2 ABG pO2 ABG HCO3 ABG Base Excess ABG Hemoglobin Oxyhemoglobin Sodium Potassium Chloride Carbon Dioxide BUN Creatinine Glucose POC Glucose 204 H Lactic Acid Calcium Ionized Calcium Phosphorus Magnesium Direct Bilirubin AST ALT Alkaline Phosphatase Lactate Dehydrogenase Troponin T C-Reactive Protein Total Protein Albumin Prealbumin Triglycerides Cholesterol LDL Cholesterol Direct HDL Cholesterol 25-OH Vitamin D Total PTH Intact Urine pH Urine WBC (Auto) 68.0 H Urine Creatinine 106.1 H Urine Total Protein Fluid Total Protein Vancomycin Trough Rheumatoid Factor Complement C4 Miscellaneous Test Crossmatch 09/07/16 09/07/16 09/07/16 04:50 06:19 06:39 WBC RBC Hgb Hct MCV MCH MCHC RDW Plt Count Lymph % (Auto) [place] % (Auto) Lymph # [place] # Baso # Seg Neutrophils % Seg Neuts % (Manual) Lymphocytes % (Manual) Monocytes % (Manual) Eosinophils % (Manual) Basophils % (Manual) Nucleated RBC % Seg Neutrophils # Seg Neutrophils # Man Lymphocytes # (Manual) Monocytes # (Manual) Eosinophils # (Manual) Basophils # (Manual) PT INR Fibrinogen dRVVT Confirm Interp Factor V Activity POC ABG pH 7.457 H POC ABG pCO2 32.1 L POC ABG pO2 76 L ABG pO2 ABG HCO3 ABG Base Excess ABG Hemoglobin Oxyhemoglobin Sodium 132 L Potassium Chloride 94.7 L Carbon Dioxide BUN 53 H Creatinine 2.9 H Glucose 151 H POC Glucose 149 H Lactic Acid Calcium Ionized Calcium Phosphorus Magnesium Direct Bilirubin AST ALT Alkaline Phosphatase Lactate Dehydrogenase Troponin T C-Reactive Protein Total Protein Albumin Prealbumin Triglycerides Cholesterol LDL Cholesterol Direct HDL Cholesterol 25-OH Vitamin D Total PTH Intact Urine pH Urine WBC (Auto) Urine Creatinine Urine Total Protein Fluid Total Protein Vancomycin Trough Rheumatoid Factor Complement C4 Miscellaneous Test Crossmatch 09/07/16 09/07/16 09/07/16 09:20 11:43 11:43 WBC 19.4 H RBC Hgb 8.3 L Hct 26.4 L D MCV 72 L D MCH 22 L MCHC RDW 17.9 H Plt Count Lymph % (Auto) 8.5 L [place] % (Auto) Lymph # [place] # 1.0 H Baso # Seg Neutrophils % 85.8 H Seg Neuts % (Manual) Lymphocytes % (Manual) Monocytes % (Manual) Eosinophils % (Manual) Basophils % (Manual) Nucleated RBC % Seg Neutrophils # 16.6 H Seg Neutrophils # Man Lymphocytes # (Manual) Monocytes # (Manual) Eosinophils # (Manual) Basophils # (Manual) PT INR Fibrinogen dRVVT Confirm Interp Factor V Activity POC ABG pH POC ABG pCO2 POC ABG pO2 ABG pO2 ABG HCO3 ABG Base Excess ABG Hemoglobin Oxyhemoglobin Sodium 134 L Potassium Chloride 97.2 L Carbon Dioxide 20 L BUN 58 H Creatinine 2.9 H Glucose 147 H POC Glucose Lactic Acid Calcium Ionized Calcium Phosphorus 2.40 L Magnesium 2.40 H Direct Bilirubin AST ALT Alkaline Phosphatase Lactate Dehydrogenase Troponin T C-Reactive Protein Total Protein 5.8 L Albumin 2.2 L Prealbumin Triglycerides Cholesterol LDL Cholesterol Direct HDL Cholesterol 25-OH Vitamin D Total PTH Intact Urine pH Urine WBC (Auto) Urine Creatinine Urine Total Protein Fluid Total Protein Vancomycin Trough Rheumatoid Factor Complement C4 58 H Miscellaneous Test Crossmatch 09/07/16 09/07/16 09/07/16 11:50 16:00 17:31 WBC RBC Hgb Hct MCV MCH MCHC RDW Plt Count Lymph % (Auto) [place] % (Auto) Lymph # [place] # Baso # Seg Neutrophils % Seg Neuts % (Manual) Lymphocytes % (Manual) Monocytes % (Manual) Eosinophils % (Manual) Basophils % (Manual) Nucleated RBC % Seg Neutrophils # Seg Neutrophils # Man Lymphocytes # (Manual) Monocytes # (Manual) Eosinophils # (Manual) Basophils # (Manual) PT INR Fibrinogen dRVVT Confirm Interp Factor V Activity POC ABG pH POC ABG pCO2 POC ABG pO2 158 H ABG pO2 ABG HCO3 ABG Base Excess ABG Hemoglobin Oxyhemoglobin Sodium Potassium Chloride Carbon Dioxide BUN Creatinine Glucose POC Glucose 175 H Lactic Acid Calcium Ionized Calcium Phosphorus Magnesium Direct Bilirubin AST ALT Alkaline Phosphatase Lactate Dehydrogenase Troponin T C-Reactive Protein Total Protein Albumin Prealbumin Triglycerides Cholesterol LDL Cholesterol Direct HDL Cholesterol 25-OH Vitamin D Total PTH Intact Urine pH Urine WBC (Auto) Urine Creatinine 66.3 H Urine Total Protein Fluid Total Protein Vancomycin Trough Rheumatoid Factor Complement C4 Miscellaneous Test Crossmatch 09/07/16 09/08/16 09/08/16 23:50 05:46 06:18 WBC 17.8 H RBC 3.58 L Hgb 8.1 L Hct 25.5 L MCV 71 L MCH 23 L MCHC RDW 18.4 H Plt Count Lymph % (Auto) [place] % (Auto) Lymph # [place] # Baso # Seg Neutrophils % Seg Neuts % (Manual) 92.0 H Lymphocytes % (Manual) 6.0 L Monocytes % (Manual) Eosinophils % (Manual) Basophils % (Manual) Nucleated RBC % Seg Neutrophils # Seg Neutrophils # Man 16.4 H Lymphocytes # (Manual) 1.1 L Monocytes # (Manual) Eosinophils # (Manual) Basophils # (Manual) PT INR Fibrinogen dRVVT Confirm Interp Factor V Activity POC ABG pH POC ABG pCO2 34.3 L POC ABG pO2 71 L ABG pO2 ABG HCO3 ABG Base Excess ABG Hemoglobin Oxyhemoglobin Sodium Potassium Chloride Carbon Dioxide BUN Creatinine Glucose POC Glucose 216 H Lactic Acid Calcium Ionized Calcium Phosphorus Magnesium Direct Bilirubin AST ALT Alkaline Phosphatase Lactate Dehydrogenase Troponin T C-Reactive Protein Total Protein Albumin Prealbumin Triglycerides Cholesterol LDL Cholesterol Direct HDL Cholesterol 25-OH Vitamin D Total PTH Intact Urine pH Urine WBC (Auto) Urine Creatinine Urine Total Protein Fluid Total Protein Vancomycin Trough Rheumatoid Factor Complement C4 Miscellaneous Test Crossmatch 09/08/16 09/08/16 09/08/16 06:18 06:51 10:55 WBC RBC Hgb Hct MCV MCH MCHC RDW Plt Count Lymph % (Auto) [place] % (Auto) Lymph # [place] # Baso # Seg Neutrophils % Seg Neuts % (Manual) Lymphocytes % (Manual) Monocytes % (Manual) Eosinophils % (Manual) Basophils % (Manual) Nucleated RBC % Seg Neutrophils # Seg Neutrophils # Man Lymphocytes # (Manual) Monocytes # (Manual) Eosinophils # (Manual) Basophils # (Manual) PT INR Fibrinogen dRVVT Confirm Interp Factor V Activity POC ABG pH POC ABG pCO2 POC ABG pO2 ABG pO2 ABG HCO3 ABG Base Excess ABG Hemoglobin Oxyhemoglobin Sodium 133 L Potassium Chloride 96.9 L Carbon Dioxide 20 L BUN 63 H Creatinine 2.7 H Glucose 195 H POC Glucose 204 H 169 H Lactic Acid Calcium Ionized Calcium Phosphorus Magnesium Direct Bilirubin AST ALT Alkaline Phosphatase Lactate Dehydrogenase Troponin T C-Reactive Protein Total Protein Albumin Prealbumin Triglycerides Cholesterol LDL Cholesterol Direct HDL Cholesterol 25-OH Vitamin D Total PTH Intact Urine pH Urine WBC (Auto) Urine Creatinine Urine Total Protein Fluid Total Protein Vancomycin Trough Rheumatoid Factor Complement C4 Miscellaneous Test Crossmatch 09/08/16 09/08/16 09/08/16 11:48 11:48 11:48 WBC RBC Hgb Hct MCV MCH MCHC RDW Plt Count Lymph % (Auto) [place] % (Auto) Lymph # [place] # Baso # Seg Neutrophils % Seg Neuts % (Manual) Lymphocytes % (Manual) Monocytes % (Manual) Eosinophils % (Manual) Basophils % (Manual) Nucleated RBC % Seg Neutrophils # Seg Neutrophils # Man Lymphocytes # (Manual) Monocytes # (Manual) Eosinophils # (Manual) Basophils # (Manual) PT INR Fibrinogen 750 H dRVVT Confirm Interp Factor V Activity POC ABG pH POC ABG pCO2 POC ABG pO2 ABG pO2 ABG HCO3 ABG Base Excess ABG Hemoglobin Oxyhemoglobin Sodium Potassium Chloride Carbon Dioxide BUN Creatinine Glucose POC Glucose Lactic Acid Calcium Ionized Calcium Phosphorus Magnesium Direct Bilirubin AST ALT Alkaline Phosphatase Lactate Dehydrogenase Troponin T C-Reactive Protein 15.70 H Total Protein Albumin Prealbumin Triglycerides Cholesterol LDL Cholesterol Direct HDL Cholesterol 25-OH Vitamin D Total PTH Intact Urine pH Urine WBC (Auto) Urine Creatinine Urine Total Protein Fluid Total Protein Vancomycin Trough Rheumatoid Factor 24 H Complement C4 Miscellaneous Test Crossmatch 09/08/16 09/08/16 09/09/16 15:35 18:25 00:24 WBC RBC Hgb Hct MCV MCH MCHC RDW Plt Count Lymph % (Auto) [place] % (Auto) Lymph # [place] # Baso # Seg Neutrophils % Seg Neuts % (Manual) Lymphocytes % (Manual) Monocytes % (Manual) Eosinophils % (Manual) Basophils % (Manual) Nucleated RBC % Seg Neutrophils # Seg Neutrophils # Man Lymphocytes # (Manual) Monocytes # (Manual) Eosinophils # (Manual) Basophils # (Manual) PT INR Fibrinogen dRVVT Confirm Interp Factor V Activity 182 H POC ABG pH POC ABG pCO2 POC ABG pO2 ABG pO2 ABG HCO3 ABG Base Excess ABG Hemoglobin Oxyhemoglobin Sodium Potassium Chloride Carbon Dioxide BUN Creatinine Glucose POC Glucose 184 H 216 H Lactic Acid Calcium Ionized Calcium Phosphorus Magnesium Direct Bilirubin AST ALT Alkaline Phosphatase Lactate Dehydrogenase Troponin T C-Reactive Protein Total Protein Albumin Prealbumin Triglycerides Cholesterol LDL Cholesterol Direct HDL Cholesterol 25-OH Vitamin D Total PTH Intact Urine pH Urine WBC (Auto) Urine Creatinine Urine Total Protein Fluid Total Protein Vancomycin Trough Rheumatoid Factor Complement C4 Miscellaneous Test Crossmatch 09/09/16 09/09/16 09/09/16 03:00 03:00 04:04 WBC 27.9 H RBC Hgb 8.7 L Hct 28.1 L MCV 72 L MCH 22 L MCHC RDW 18.4 H Plt Count 485 H Lymph % (Auto) [place] % (Auto) Lymph # [place] # Baso # Seg Neutrophils % Seg Neuts % (Manual) 77.0 H Lymphocytes % (Manual) 9.0 L Monocytes % (Manual) Eosinophils % (Manual) Basophils % (Manual) Nucleated RBC % Seg Neutrophils # Seg Neutrophils # Man 21.5 H Lymphocytes # (Manual) Monocytes # (Manual) 2.0 H Eosinophils # (Manual) Basophils # (Manual) PT INR Fibrinogen dRVVT Confirm Interp Factor V Activity POC ABG pH POC ABG pCO2 POC ABG pO2 121 H ABG pO2 ABG HCO3 ABG Base Excess ABG Hemoglobin Oxyhemoglobin Sodium 135 L Potassium Chloride 96.3 L Carbon Dioxide 21 L BUN 83 H Creatinine 3.0 H Glucose 135 H POC Glucose Lactic Acid Calcium Ionized Calcium Phosphorus Magnesium Direct Bilirubin AST ALT Alkaline Phosphatase Lactate Dehydrogenase Troponin T C-Reactive Protein Total Protein Albumin Prealbumin Triglycerides Cholesterol LDL Cholesterol Direct HDL Cholesterol 25-OH Vitamin D Total PTH Intact Urine pH Urine WBC (Auto) Urine Creatinine Urine Total Protein Fluid Total Protein Vancomycin Trough Rheumatoid Factor Complement C4 Miscellaneous Test Crossmatch 09/09/16 09/09/16 09/09/16 05:41 11:55 14:13 WBC RBC Hgb Hct MCV MCH MCHC RDW Plt Count Lymph % (Auto) [place] % (Auto) Lymph # [place] # Baso # Seg Neutrophils % Seg Neuts % (Manual) Lymphocytes % (Manual) Monocytes % (Manual) Eosinophils % (Manual) Basophils % (Manual) Nucleated RBC % Seg Neutrophils # Seg Neutrophils # Man Lymphocytes # (Manual) Monocytes # (Manual) Eosinophils # (Manual) Basophils # (Manual) PT INR Fibrinogen dRVVT Confirm Interp Factor V Activity POC ABG pH POC ABG pCO2 POC ABG pO2 ABG pO2 ABG HCO3 ABG Base Excess ABG Hemoglobin Oxyhemoglobin Sodium Potassium Chloride Carbon Dioxide BUN Creatinine Glucose POC Glucose 155 H 186 H Lactic Acid Calcium Ionized Calcium Phosphorus Magnesium Direct Bilirubin AST ALT Alkaline Phosphatase Lactate Dehydrogenase Troponin T C-Reactive Protein Total Protein Albumin Prealbumin Triglycerides Cholesterol LDL Cholesterol Direct HDL Cholesterol 25-OH Vitamin D Total PTH Intact Urine pH Urine WBC (Auto) 25.0 H Urine Creatinine Urine Total Protein Fluid Total Protein Vancomycin Trough Rheumatoid Factor Complement C4 Miscellaneous Test Crossmatch 09/09/16 09/09/16 09/10/16 17:33 23:13 05:09 WBC RBC Hgb Hct MCV MCH MCHC RDW Plt Count Lymph % (Auto) [place] % (Auto) Lymph # [place] # Baso # Seg Neutrophils % Seg Neuts % (Manual) Lymphocytes % (Manual) Monocytes % (Manual) Eosinophils % (Manual) Basophils % (Manual) Nucleated RBC % Seg Neutrophils # Seg Neutrophils # Man Lymphocytes # (Manual) Monocytes # (Manual) Eosinophils # (Manual) Basophils # (Manual) PT INR Fibrinogen dRVVT Confirm Interp Factor V Activity POC ABG pH POC ABG pCO2 POC ABG pO2 74 L ABG pO2 ABG HCO3 ABG Base Excess ABG Hemoglobin Oxyhemoglobin Sodium Potassium Chloride Carbon Dioxide BUN Creatinine Glucose POC Glucose 211 H 215 H Lactic Acid Calcium Ionized Calcium Phosphorus Magnesium Direct Bilirubin AST ALT Alkaline Phosphatase Lactate Dehydrogenase Troponin T C-Reactive Protein Total Protein Albumin Prealbumin Triglycerides Cholesterol LDL Cholesterol Direct HDL Cholesterol 25-OH Vitamin D Total PTH Intact Urine pH Urine WBC (Auto) Urine Creatinine Urine Total Protein Fluid Total Protein Vancomycin Trough Rheumatoid Factor Complement C4 Miscellaneous Test Crossmatch 09/10/16 09/10/16 09/10/16 05:17 05:17 11:31 WBC 15.8 H RBC 3.25 L Hgb 7.3 L Hct 22.9 L MCV 71 L MCH 23 L MCHC RDW 18.4 H Plt Count Lymph % (Auto) [place] % (Auto) Lymph # [place] # Baso # Seg Neutrophils % Seg Neuts % (Manual) 91.0 H Lymphocytes % (Manual) 4.0 L Monocytes % (Manual) Eosinophils % (Manual) Basophils % (Manual) Nucleated RBC % Seg Neutrophils # Seg Neutrophils # Man 14.4 H Lymphocytes # (Manual) 0.6 L Monocytes # (Manual) Eosinophils # (Manual) Basophils # (Manual) PT INR Fibrinogen dRVVT Confirm Interp Factor V Activity POC ABG pH POC ABG pCO2 POC ABG pO2 ABG pO2 ABG HCO3 ABG Base Excess ABG Hemoglobin Oxyhemoglobin Sodium Potassium Chloride Carbon Dioxide 21 L BUN 93 H Creatinine 2.9 H Glucose 146 H POC Glucose 188 H Lactic Acid Calcium 8.1 L Ionized Calcium Phosphorus Magnesium Direct Bilirubin AST ALT Alkaline Phosphatase Lactate Dehydrogenase Troponin T C-Reactive Protein Total Protein Albumin Prealbumin Triglycerides Cholesterol LDL Cholesterol Direct HDL Cholesterol 25-OH Vitamin D Total PTH Intact Urine pH Urine WBC (Auto) Urine Creatinine Urine Total Protein Fluid Total Protein Vancomycin Trough Rheumatoid Factor Complement C4 Miscellaneous Test Crossmatch 09/10/16 09/10/16 09/10/16 13:17 17:20 23:32 WBC RBC Hgb Hct MCV MCH MCHC RDW Plt Count Lymph % (Auto) [place] % (Auto) Lymph # [place] # Baso # Seg Neutrophils % Seg Neuts % (Manual) Lymphocytes % (Manual) Monocytes % (Manual) Eosinophils % (Manual) Basophils % (Manual) Nucleated RBC % Seg Neutrophils # Seg Neutrophils # Man Lymphocytes # (Manual) Monocytes # (Manual) Eosinophils # (Manual) Basophils # (Manual) PT INR Fibrinogen dRVVT Confirm Interp Factor V Activity POC ABG pH POC ABG pCO2 POC ABG pO2 ABG pO2 ABG HCO3 ABG Base Excess ABG Hemoglobin Oxyhemoglobin Sodium Potassium Chloride Carbon Dioxide BUN Creatinine Glucose POC Glucose 199 H 186 H Lactic Acid Calcium Ionized Calcium Phosphorus Magnesium Direct Bilirubin AST ALT Alkaline Phosphatase Lactate Dehydrogenase Troponin T C-Reactive Protein Total Protein Albumin Prealbumin Triglycerides Cholesterol LDL Cholesterol Direct HDL Cholesterol 25-OH Vitamin D Total PTH Intact Urine pH Urine WBC (Auto) Urine Creatinine Urine Total Protein Fluid Total Protein Vancomycin Trough Rheumatoid Factor Complement C4 Miscellaneous Test Crossmatch See Detail 09/11/16 09/11/16 09/11/16 05:10 05:10 05:17 WBC 28.4 H RBC Hgb 9.2 L Hct 29.3 L D MCV 73 L MCH 23 L MCHC RDW 18.9 H Plt Count 452 H Lymph % (Auto) [place] % (Auto) Lymph # [place] # Baso # Seg Neutrophils % Seg Neuts % (Manual) 89.5 H Lymphocytes % (Manual) 2.0 L Monocytes % (Manual) Eosinophils % (Manual) Basophils % (Manual) Nucleated RBC % Seg Neutrophils # Seg Neutrophils # Man 25.4 H Lymphocytes # (Manual) 0.6 L Monocytes # (Manual) 1.3 H Eosinophils # (Manual) Basophils # (Manual) PT INR Fibrinogen dRVVT Confirm Interp Factor V Activity POC ABG pH POC ABG pCO2 POC ABG pO2 ABG pO2 ABG HCO3 ABG Base Excess ABG Hemoglobin Oxyhemoglobin Sodium 136 L Potassium Chloride Carbon Dioxide 18 L BUN 107 H Creatinine 2.6 H Glucose 187 H POC Glucose 230 H Lactic Acid Calcium 8.3 L Ionized Calcium Phosphorus Magnesium Direct Bilirubin AST ALT Alkaline Phosphatase Lactate Dehydrogenase Troponin T C-Reactive Protein Total Protein Albumin Prealbumin Triglycerides Cholesterol LDL Cholesterol Direct HDL Cholesterol 25-OH Vitamin D Total PTH Intact Urine pH Urine WBC (Auto) Urine Creatinine Urine Total Protein Fluid Total Protein Vancomycin Trough Rheumatoid Factor Complement C4 Miscellaneous Test Crossmatch 09/11/16 09/11/16 09/11/16 05:55 12:02 17:32 WBC RBC Hgb Hct MCV MCH MCHC RDW Plt Count Lymph % (Auto) [place] % (Auto) Lymph # [place] # Baso # Seg Neutrophils % Seg Neuts % (Manual) Lymphocytes % (Manual) Monocytes % (Manual) Eosinophils % (Manual) Basophils % (Manual) Nucleated RBC % Seg Neutrophils # Seg Neutrophils # Man Lymphocytes # (Manual) Monocytes # (Manual) Eosinophils # (Manual) Basophils # (Manual) PT INR Fibrinogen dRVVT Confirm Interp Factor V Activity POC ABG pH POC ABG pCO2 33.8 L POC ABG pO2 ABG pO2 ABG HCO3 ABG Base Excess ABG Hemoglobin Oxyhemoglobin Sodium Potassium Chloride Carbon Dioxide BUN Creatinine Glucose POC Glucose 191 H 239 H Lactic Acid Calcium Ionized Calcium Phosphorus Magnesium Direct Bilirubin AST ALT Alkaline Phosphatase Lactate Dehydrogenase Troponin T C-Reactive Protein Total Protein Albumin Prealbumin Triglycerides Cholesterol LDL Cholesterol Direct HDL Cholesterol 25-OH Vitamin D Total PTH Intact Urine pH Urine WBC (Auto) Urine Creatinine Urine Total Protein Fluid Total Protein Vancomycin Trough Rheumatoid Factor Complement C4 Miscellaneous Test Crossmatch 09/11/16 09/12/16 09/12/16 23:52 05:09 05:32 WBC RBC Hgb Hct MCV MCH MCHC RDW Plt Count Lymph % (Auto) [place] % (Auto) Lymph # [place] # Baso # Seg Neutrophils % Seg Neuts % (Manual) Lymphocytes % (Manual) Monocytes % (Manual) Eosinophils % (Manual) Basophils % (Manual) Nucleated RBC % Seg Neutrophils # Seg Neutrophils # Man Lymphocytes # (Manual) Monocytes # (Manual) Eosinophils # (Manual) Basophils # (Manual) PT INR Fibrinogen dRVVT Confirm Interp Factor V Activity POC ABG pH POC ABG pCO2 34.6 L POC ABG pO2 ABG pO2 ABG HCO3 ABG Base Excess ABG Hemoglobin Oxyhemoglobin Sodium Potassium Chloride Carbon Dioxide BUN Creatinine Glucose POC Glucose 265 H 184 H Lactic Acid Calcium Ionized Calcium Phosphorus Magnesium Direct Bilirubin AST ALT Alkaline Phosphatase Lactate Dehydrogenase Troponin T C-Reactive Protein Total Protein Albumin Prealbumin Triglycerides Cholesterol LDL Cholesterol Direct HDL Cholesterol 25-OH Vitamin D Total PTH Intact Urine pH Urine WBC (Auto) Urine Creatinine Urine Total Protein Fluid Total Protein Vancomycin Trough Rheumatoid Factor Complement C4 Miscellaneous Test Crossmatch 09/12/16 09/12/16 09/12/16 06:45 06:45 07:22 WBC 31.7 H RBC 3.54 L Hgb 8.3 L Hct 25.9 L MCV 73 L MCH 23 L MCHC RDW 18.9 H Plt Count Lymph % (Auto) [place] % (Auto) Lymph # [place] # Baso # Seg Neutrophils % Seg Neuts % (Manual) 88.5 H Lymphocytes % (Manual) 4.5 L Monocytes % (Manual) Eosinophils % (Manual) Basophils % (Manual) Nucleated RBC % Seg Neutrophils # Seg Neutrophils # Man 28.1 H Lymphocytes # (Manual) Monocytes # (Manual) 1.0 H Eosinophils # (Manual) Basophils # (Manual) PT INR Fibrinogen dRVVT Confirm Interp Factor V Activity POC ABG pH POC ABG pCO2 POC ABG pO2 ABG pO2 ABG HCO3 ABG Base Excess ABG Hemoglobin Oxyhemoglobin Sodium Potassium Chloride Carbon Dioxide 20 L BUN 115 H Creatinine 2.7 H Glucose 165 H POC Glucose Lactic Acid Calcium 8.0 L Ionized Calcium Phosphorus Magnesium Direct Bilirubin AST ALT Alkaline Phosphatase Lactate Dehydrogenase Troponin T C-Reactive Protein Total Protein Albumin Prealbumin Triglycerides 217 H Cholesterol LDL Cholesterol Direct HDL Cholesterol 25-OH Vitamin D Total PTH Intact Urine pH Urine WBC (Auto) Urine Creatinine Urine Total Protein Fluid Total Protein Vancomycin Trough Rheumatoid Factor Complement C4 Miscellaneous Test Crossmatch 09/12/16 09/12/16 09/12/16 07:22 09:59 12:21 WBC RBC Hgb Hct MCV MCH MCHC RDW Plt Count Lymph % (Auto) [place] % (Auto) Lymph # [place] # Baso # Seg Neutrophils % Seg Neuts % (Manual) Lymphocytes % (Manual) Monocytes % (Manual) Eosinophils % (Manual) Basophils % (Manual) Nucleated RBC % Seg Neutrophils # Seg Neutrophils # Man Lymphocytes # (Manual) Monocytes # (Manual) Eosinophils # (Manual) Basophils # (Manual) PT INR Fibrinogen dRVVT Confirm Interp Positive H Factor V Activity POC ABG pH POC ABG pCO2 POC ABG pO2 ABG pO2 ABG HCO3 ABG Base Excess ABG Hemoglobin Oxyhemoglobin Sodium Potassium Chloride Carbon Dioxide BUN Creatinine Glucose POC Glucose 224 H Lactic Acid Calcium Ionized Calcium Phosphorus Magnesium Direct Bilirubin AST ALT Alkaline Phosphatase Lactate Dehydrogenase Troponin T C-Reactive Protein 1.70 H Total Protein Albumin Prealbumin Triglycerides Cholesterol LDL Cholesterol Direct HDL Cholesterol 25-OH Vitamin D Total PTH Intact Urine pH Urine WBC (Auto) Urine Creatinine Urine Total Protein Fluid Total Protein Vancomycin Trough Rheumatoid Factor Complement C4 Miscellaneous Test Crossmatch 09/12/16 09/12/16 09/13/16 16:51 23:28 04:00 WBC 45.0 H* RBC Hgb 9.4 L Hct MCV 75 L MCH 23 L MCHC RDW 19.0 H Plt Count 470 H Lymph % (Auto) [place] % (Auto) Lymph # [place] # Baso # Seg Neutrophils % Seg Neuts % (Manual) 89.0 H Lymphocytes % (Manual) 5.0 L Monocytes % (Manual) Eosinophils % (Manual) Basophils % (Manual) Nucleated RBC % Seg Neutrophils # Seg Neutrophils # Man 40.1 H Lymphocytes # (Manual) Monocytes # (Manual) Eosinophils # (Manual) Basophils # (Manual) PT INR Fibrinogen dRVVT Confirm Interp Factor V Activity POC ABG pH POC ABG pCO2 POC ABG pO2 ABG pO2 ABG HCO3 ABG Base Excess ABG Hemoglobin Oxyhemoglobin Sodium Potassium Chloride Carbon Dioxide BUN Creatinine Glucose POC Glucose 169 H 150 H Lactic Acid Calcium Ionized Calcium Phosphorus Magnesium Direct Bilirubin AST ALT Alkaline Phosphatase Lactate Dehydrogenase Troponin T C-Reactive Protein Total Protein Albumin Prealbumin Triglycerides Cholesterol LDL Cholesterol Direct HDL Cholesterol 25-OH Vitamin D Total PTH Intact Urine pH Urine WBC (Auto) Urine Creatinine Urine Total Protein Fluid Total Protein Vancomycin Trough Rheumatoid Factor Complement C4 Miscellaneous Test Crossmatch 09/13/16 09/13/16 09/13/16 04:00 11:26 17:31 WBC RBC Hgb Hct MCV MCH MCHC RDW Plt Count Lymph % (Auto) [place] % (Auto) Lymph # [place] # Baso # Seg Neutrophils % Seg Neuts % (Manual) Lymphocytes % (Manual) Monocytes % (Manual) Eosinophils % (Manual) Basophils % (Manual) Nucleated RBC % Seg Neutrophils # Seg Neutrophils # Man Lymphocytes # (Manual) Monocytes # (Manual) Eosinophils # (Manual) Basophils # (Manual) PT INR Fibrinogen dRVVT Confirm Interp Factor V Activity POC ABG pH POC ABG pCO2 POC ABG pO2 ABG pO2 ABG HCO3 ABG Base Excess ABG Hemoglobin Oxyhemoglobin Sodium Potassium Chloride Carbon Dioxide 20 L BUN 116 H Creatinine 3.0 H Glucose 172 H POC Glucose 140 H 183 H Lactic Acid Calcium Ionized Calcium Phosphorus Magnesium Direct Bilirubin AST ALT Alkaline Phosphatase Lactate Dehydrogenase Troponin T C-Reactive Protein Total Protein 6.2 L Albumin 2.9 L Prealbumin Triglycerides Cholesterol LDL Cholesterol Direct HDL Cholesterol 25-OH Vitamin D Total PTH Intact Urine pH Urine WBC (Auto) Urine Creatinine Urine Total Protein Fluid Total Protein Vancomycin Trough Rheumatoid Factor Complement C4 Miscellaneous Test Crossmatch 09/13/16 09/14/16 09/14/16 23:23 04:06 04:07 WBC 29.4 H RBC Hgb 8.9 L Hct 27.3 L MCV 75 L MCH 24 L MCHC RDW 19.1 H Plt Count Lymph % (Auto) [place] % (Auto) Lymph # [place] # Baso # Seg Neutrophils % Seg Neuts % (Manual) 84.0 H Lymphocytes % (Manual) 6.0 L Monocytes % (Manual) 9.0 H Eosinophils % (Manual) Basophils % (Manual) Nucleated RBC % Seg Neutrophils # Seg Neutrophils # Man 24.7 H Lymphocytes # (Manual) Monocytes # (Manual) 2.6 H Eosinophils # (Manual) Basophils # (Manual) PT INR Fibrinogen dRVVT Confirm Interp Factor V Activity POC ABG pH 7.342 L POC ABG pCO2 POC ABG pO2 116 H ABG pO2 ABG HCO3 ABG Base Excess ABG Hemoglobin Oxyhemoglobin Sodium Potassium Chloride Carbon Dioxide BUN Creatinine Glucose POC Glucose 154 H Lactic Acid Calcium Ionized Calcium Phosphorus Magnesium Direct Bilirubin AST ALT Alkaline Phosphatase Lactate Dehydrogenase Troponin T C-Reactive Protein Total Protein Albumin Prealbumin Triglycerides Cholesterol LDL Cholesterol Direct HDL Cholesterol 25-OH Vitamin D Total PTH Intact Urine pH Urine WBC (Auto) Urine Creatinine Urine Total Protein Fluid Total Protein Vancomycin Trough Rheumatoid Factor Complement C4 Miscellaneous Test Crossmatch 09/14/16 09/14/16 09/14/16 04:07 05:29 12:19 WBC RBC Hgb Hct MCV MCH MCHC RDW Plt Count Lymph % (Auto) [place] % (Auto) Lymph # [place] # Baso # Seg Neutrophils % Seg Neuts % (Manual) Lymphocytes % (Manual) Monocytes % (Manual) Eosinophils % (Manual) Basophils % (Manual) Nucleated RBC % Seg Neutrophils # Seg Neutrophils # Man Lymphocytes # (Manual) Monocytes # (Manual) Eosinophils # (Manual) Basophils # (Manual) PT INR Fibrinogen dRVVT Confirm Interp Factor V Activity POC ABG pH POC ABG pCO2 POC ABG pO2 ABG pO2 ABG HCO3 ABG Base Excess ABG Hemoglobin Oxyhemoglobin Sodium 136 L Potassium Chloride Carbon Dioxide 18 L BUN 121 H Creatinine 2.8 H Glucose 214 H POC Glucose 239 H 181 H Lactic Acid Calcium Ionized Calcium Phosphorus Magnesium Direct Bilirubin AST ALT Alkaline Phosphatase Lactate Dehydrogenase Troponin T C-Reactive Protein Total Protein Albumin Prealbumin Triglycerides Cholesterol LDL Cholesterol Direct HDL Cholesterol 25-OH Vitamin D Total PTH Intact Urine pH Urine WBC (Auto) Urine Creatinine Urine Total Protein Fluid Total Protein Vancomycin Trough Rheumatoid Factor Complement C4 Miscellaneous Test Crossmatch 09/14/16 09/14/16 09/15/16 18:12 23:37 05:00 WBC 26.1 H RBC 3.05 L Hgb 7.2 L Hct 22.9 L MCV 75 L MCH 24 L MCHC RDW 19.0 H Plt Count Lymph % (Auto) [place] % (Auto) Lymph # [place] # Baso # Seg Neutrophils % Seg Neuts % (Manual) Lymphocytes % (Manual) Monocytes % (Manual) Eosinophils % (Manual) Basophils % (Manual) Nucleated RBC % Seg Neutrophils # Seg Neutrophils # Man Lymphocytes # (Manual) Monocytes # (Manual) Eosinophils # (Manual) Basophils # (Manual) PT INR Fibrinogen dRVVT Confirm Interp Factor V Activity POC ABG pH POC ABG pCO2 POC ABG pO2 ABG pO2 ABG HCO3 ABG Base Excess ABG Hemoglobin Oxyhemoglobin Sodium Potassium Chloride Carbon Dioxide BUN Creatinine Glucose POC Glucose 266 H 154 H Lactic Acid Calcium Ionized Calcium Phosphorus Magnesium Direct Bilirubin AST ALT Alkaline Phosphatase Lactate Dehydrogenase Troponin T C-Reactive Protein Total Protein Albumin Prealbumin Triglycerides Cholesterol LDL Cholesterol Direct HDL Cholesterol 25-OH Vitamin D Total PTH Intact Urine pH Urine WBC (Auto) Urine Creatinine Urine Total Protein Fluid Total Protein Vancomycin Trough Rheumatoid Factor Complement C4 Miscellaneous Test Crossmatch 09/15/16 09/15/16 09/15/16 05:00 05:17 12:45 WBC RBC Hgb Hct MCV MCH MCHC RDW Plt Count Lymph % (Auto) [place] % (Auto) Lymph # [place] # Baso # Seg Neutrophils % Seg Neuts % (Manual) Lymphocytes % (Manual) Monocytes % (Manual) Eosinophils % (Manual) Basophils % (Manual) Nucleated RBC % Seg Neutrophils # Seg Neutrophils # Man Lymphocytes # (Manual) Monocytes # (Manual) Eosinophils # (Manual) Basophils # (Manual) PT INR Fibrinogen dRVVT Confirm Interp Factor V Activity POC ABG pH POC ABG pCO2 POC ABG pO2 ABG pO2 ABG HCO3 ABG Base Excess ABG Hemoglobin Oxyhemoglobin Sodium Potassium 5.2 H Chloride Carbon Dioxide 18 L BUN 139 H Creatinine 3.7 H Glucose 227 H POC Glucose 226 H 244 H Lactic Acid Calcium 8.3 L Ionized Calcium Phosphorus Magnesium Direct Bilirubin AST ALT Alkaline Phosphatase Lactate Dehydrogenase Troponin T C-Reactive Protein Total Protein Albumin Prealbumin Triglycerides Cholesterol LDL Cholesterol Direct HDL Cholesterol 25-OH Vitamin D Total PTH Intact Urine pH Urine WBC (Auto) Urine Creatinine Urine Total Protein Fluid Total Protein Vancomycin Trough Rheumatoid Factor Complement C4 Miscellaneous Test Crossmatch 09/15/16 09/15/16 09/15/16 14:32 17:33 23:35 WBC RBC Hgb Hct MCV MCH MCHC RDW Plt Count Lymph % (Auto) [place] % (Auto) Lymph # [place] # Baso # Seg Neutrophils % Seg Neuts % (Manual) Lymphocytes % (Manual) Monocytes % (Manual) Eosinophils % (Manual) Basophils % (Manual) Nucleated RBC % Seg Neutrophils # Seg Neutrophils # Man Lymphocytes # (Manual) Monocytes # (Manual) Eosinophils # (Manual) Basophils # (Manual) PT INR Fibrinogen dRVVT Confirm Interp Factor V Activity POC ABG pH POC ABG pCO2 27.7 L POC ABG pO2 120 H ABG pO2 ABG HCO3 ABG Base Excess ABG Hemoglobin Oxyhemoglobin Sodium Potassium Chloride Carbon Dioxide BUN Creatinine Glucose POC Glucose 232 H 167 H Lactic Acid Calcium Ionized Calcium Phosphorus Magnesium Direct Bilirubin AST ALT Alkaline Phosphatase Lactate Dehydrogenase Troponin T C-Reactive Protein Total Protein Albumin Prealbumin Triglycerides Cholesterol LDL Cholesterol Direct HDL Cholesterol 25-OH Vitamin D Total PTH Intact Urine pH Urine WBC (Auto) Urine Creatinine Urine Total Protein Fluid Total Protein Vancomycin Trough Rheumatoid Factor Complement C4 Miscellaneous Test Crossmatch 09/16/16 09/16/16 09/16/16 03:58 10:27 10:27 WBC 19.0 H RBC 2.77 L Hgb 6.5 L Hct 20.9 L MCV 76 L MCH 23 L MCHC RDW 19.3 H Plt Count Lymph % (Auto) 11.0 L [place] % (Auto) Lymph # [place] # 1.1 H Baso # Seg Neutrophils % 82.5 H Seg Neuts % (Manual) Lymphocytes % (Manual) Monocytes % (Manual) Eosinophils % (Manual) Basophils % (Manual) Nucleated RBC % Seg Neutrophils # 15.7 H Seg Neutrophils # Man Lymphocytes # (Manual) Monocytes # (Manual) Eosinophils # (Manual) Basophils # (Manual) PT INR Fibrinogen dRVVT Confirm Interp Factor V Activity POC ABG pH POC ABG pCO2 POC ABG pO2 ABG pO2 ABG HCO3 ABG Base Excess ABG Hemoglobin Oxyhemoglobin Sodium Potassium Chloride 109.3 H Carbon Dioxide 18 L BUN 139 H Creatinine 4.1 H Glucose 144 H POC Glucose 146 H Lactic Acid Calcium 8.1 L Ionized Calcium Phosphorus Magnesium Direct Bilirubin AST ALT Alkaline Phosphatase Lactate Dehydrogenase Troponin T C-Reactive Protein Total Protein Albumin Prealbumin Triglycerides Cholesterol LDL Cholesterol Direct HDL Cholesterol 25-OH Vitamin D Total PTH Intact Urine pH Urine WBC (Auto) Urine Creatinine Urine Total Protein Fluid Total Protein Vancomycin Trough Rheumatoid Factor Complement C4 Miscellaneous Test Crossmatch 09/16/16 09/16/16 09/16/16 12:04 12:10 13:55 WBC RBC Hgb Hct MCV MCH MCHC RDW Plt Count Lymph % (Auto) [place] % (Auto) Lymph # [place] # Baso # Seg Neutrophils % Seg Neuts % (Manual) Lymphocytes % (Manual) Monocytes % (Manual) Eosinophils % (Manual) Basophils % (Manual) Nucleated RBC % Seg Neutrophils # Seg Neutrophils # Man Lymphocytes # (Manual) Monocytes # (Manual) Eosinophils # (Manual) Basophils # (Manual) PT INR Fibrinogen dRVVT Confirm Interp Factor V Activity POC ABG pH POC ABG pCO2 32.9 L POC ABG pO2 ABG pO2 ABG HCO3 ABG Base Excess ABG Hemoglobin Oxyhemoglobin Sodium Potassium Chloride Carbon Dioxide BUN Creatinine Glucose POC Glucose 185 H Lactic Acid Calcium Ionized Calcium Phosphorus Magnesium Direct Bilirubin AST ALT Alkaline Phosphatase Lactate Dehydrogenase Troponin T C-Reactive Protein Total Protein Albumin Prealbumin Triglycerides Cholesterol LDL Cholesterol Direct HDL Cholesterol 25-OH Vitamin D Total PTH Intact Urine pH Urine WBC (Auto) Urine Creatinine Urine Total Protein Fluid Total Protein Vancomycin Trough Rheumatoid Factor Complement C4 Miscellaneous Test Crossmatch See Detail 09/16/16 09/16/16 09/16/16 17:55 19:19 23:48 WBC RBC Hgb Hct MCV MCH MCHC RDW Plt Count Lymph % (Auto) [place] % (Auto) Lymph # [place] # Baso # Seg Neutrophils % Seg Neuts % (Manual) Lymphocytes % (Manual) Monocytes % (Manual) Eosinophils % (Manual) Basophils % (Manual) Nucleated RBC % Seg Neutrophils # Seg Neutrophils # Man Lymphocytes # (Manual) Monocytes # (Manual) Eosinophils # (Manual) Basophils # (Manual) PT INR Fibrinogen dRVVT Confirm Interp Factor V Activity POC ABG pH POC ABG pCO2 POC ABG pO2 ABG pO2 ABG HCO3 ABG Base Excess ABG Hemoglobin Oxyhemoglobin Sodium Potassium Chloride Carbon Dioxide BUN Creatinine Glucose POC Glucose 222 H 107 H Lactic Acid Calcium Ionized Calcium Phosphorus Magnesium Direct Bilirubin AST ALT Alkaline Phosphatase Lactate Dehydrogenase Troponin T C-Reactive Protein Total Protein Albumin Prealbumin Triglycerides Cholesterol LDL Cholesterol Direct HDL Cholesterol 25-OH Vitamin D Total PTH Intact Urine pH Urine WBC (Auto) Urine Creatinine 47.4 H Urine Total Protein 16 H Fluid Total Protein Vancomycin Trough Rheumatoid Factor Complement C4 Miscellaneous Test Crossmatch 09/17/16 09/17/16 09/17/16 03:45 03:45 04:55 WBC 19.6 H RBC 3.41 L Hgb 8.5 L Hct 26.7 L MCV 78 L MCH 25 L MCHC RDW 19.9 H Plt Count Lymph % (Auto) 9.3 L [place] % (Auto) Lymph # [place] # 1.2 H Baso # Seg Neutrophils % 83.9 H Seg Neuts % (Manual) Lymphocytes % (Manual) Monocytes % (Manual) Eosinophils % (Manual) Basophils % (Manual) Nucleated RBC % Seg Neutrophils # 16.4 H Seg Neutrophils # Man Lymphocytes # (Manual) Monocytes # (Manual) Eosinophils # (Manual) Basophils # (Manual) PT INR Fibrinogen dRVVT Confirm Interp Factor V Activity POC ABG pH POC ABG pCO2 POC ABG pO2 ABG pO2 ABG HCO3 ABG Base Excess ABG Hemoglobin Oxyhemoglobin Sodium 146 H Potassium 5.1 H Chloride 110.9 H Carbon Dioxide 16 L BUN 146 H Creatinine 4.0 H Glucose 108 H POC Glucose 133 H Lactic Acid Calcium Ionized Calcium Phosphorus Magnesium 3.00 H Direct Bilirubin AST ALT Alkaline Phosphatase Lactate Dehydrogenase Troponin T C-Reactive Protein Total Protein Albumin Prealbumin Triglycerides Cholesterol LDL Cholesterol Direct HDL Cholesterol 25-OH Vitamin D Total PTH Intact Urine pH Urine WBC (Auto) Urine Creatinine Urine Total Protein Fluid Total Protein Vancomycin Trough Rheumatoid Factor Complement C4 Miscellaneous Test Crossmatch 09/17/16 09/17/16 09/17/16 11:15 17:33 23:47 WBC RBC Hgb Hct MCV MCH MCHC RDW Plt Count Lymph % (Auto) [place] % (Auto) Lymph # [place] # Baso # Seg Neutrophils % Seg Neuts % (Manual) Lymphocytes % (Manual) Monocytes % (Manual) Eosinophils % (Manual) Basophils % (Manual) Nucleated RBC % Seg Neutrophils # Seg Neutrophils # Man Lymphocytes # (Manual) Monocytes # (Manual) Eosinophils # (Manual) Basophils # (Manual) PT INR Fibrinogen dRVVT Confirm Interp Factor V Activity POC ABG pH POC ABG pCO2 POC ABG pO2 ABG pO2 ABG HCO3 ABG Base Excess ABG Hemoglobin Oxyhemoglobin Sodium Potassium Chloride Carbon Dioxide BUN Creatinine Glucose POC Glucose 176 H 246 H 148 H Lactic Acid Calcium Ionized Calcium Phosphorus Magnesium Direct Bilirubin AST ALT Alkaline Phosphatase Lactate Dehydrogenase Troponin T C-Reactive Protein Total Protein Albumin Prealbumin Triglycerides Cholesterol LDL Cholesterol Direct HDL Cholesterol 25-OH Vitamin D Total PTH Intact Urine pH Urine WBC (Auto) Urine Creatinine Urine Total Protein Fluid Total Protein Vancomycin Trough Rheumatoid Factor Complement C4 Miscellaneous Test Crossmatch 09/18/16 09/18/16 09/18/16 05:33 08:31 08:31 WBC 18.0 H RBC 3.17 L Hgb 9.0 L Hct 25.7 L MCV MCH MCHC 35 H RDW 20.4 H Plt Count Lymph % (Auto) [place] % (Auto) Lymph # [place] # Baso # Seg Neutrophils % Seg Neuts % (Manual) Lymphocytes % (Manual) Monocytes % (Manual) Eosinophils % (Manual) Basophils % (Manual) Nucleated RBC % Seg Neutrophils # Seg Neutrophils # Man Lymphocytes # (Manual) Monocytes # (Manual) Eosinophils # (Manual) Basophils # (Manual) PT INR Fibrinogen dRVVT Confirm Interp Factor V Activity POC ABG pH POC ABG pCO2 POC ABG pO2 ABG pO2 ABG HCO3 ABG Base Excess ABG Hemoglobin Oxyhemoglobin Sodium Potassium Chloride Carbon Dioxide 15 L BUN 124 H Creatinine 3.8 H Glucose POC Glucose 120 H Lactic Acid Calcium 8.1 L Ionized Calcium Phosphorus Magnesium Direct Bilirubin AST ALT Alkaline Phosphatase Lactate Dehydrogenase Troponin T C-Reactive Protein Total Protein Albumin Prealbumin Triglycerides Cholesterol LDL Cholesterol Direct HDL Cholesterol 25-OH Vitamin D Total PTH Intact Urine pH Urine WBC (Auto) Urine Creatinine Urine Total Protein Fluid Total Protein Vancomycin Trough Rheumatoid Factor Complement C4 Miscellaneous Test Crossmatch 09/18/16 09/18/16 09/18/16 12:03 15:34 17:50 WBC RBC Hgb Hct MCV MCH MCHC RDW Plt Count Lymph % (Auto) [place] % (Auto) Lymph # [place] # Baso # Seg Neutrophils % Seg Neuts % (Manual) Lymphocytes % (Manual) Monocytes % (Manual) Eosinophils % (Manual) Basophils % (Manual) Nucleated RBC % Seg Neutrophils # Seg Neutrophils # Man Lymphocytes # (Manual) Monocytes # (Manual) Eosinophils # (Manual) Basophils # (Manual) PT INR Fibrinogen dRVVT Confirm Interp Factor V Activity POC ABG pH POC ABG pCO2 25.7 L POC ABG pO2 66 L ABG pO2 ABG HCO3 ABG Base Excess ABG Hemoglobin Oxyhemoglobin Sodium Potassium Chloride Carbon Dioxide BUN Creatinine Glucose POC Glucose 156 H 220 H Lactic Acid Calcium Ionized Calcium Phosphorus Magnesium Direct Bilirubin AST ALT Alkaline Phosphatase Lactate Dehydrogenase Troponin T C-Reactive Protein Total Protein Albumin Prealbumin Triglycerides Cholesterol LDL Cholesterol Direct HDL Cholesterol 25-OH Vitamin D Total PTH Intact Urine pH Urine WBC (Auto) Urine Creatinine Urine Total Protein Fluid Total Protein Vancomycin Trough Rheumatoid Factor Complement C4 Miscellaneous Test Crossmatch 09/19/16 09/19/16 09/19/16 06:21 09:50 09:50 WBC 17.1 H RBC 3.49 L Hgb 9.0 L Hct 28.1 L MCV MCH 26 L MCHC RDW 20.8 H Plt Count Lymph % (Auto) 11.5 L [place] % (Auto) 7.5 H Lymph # [place] # 1.3 H Baso # Seg Neutrophils % 79.8 H Seg Neuts % (Manual) Lymphocytes % (Manual) Monocytes % (Manual) Eosinophils % (Manual) Basophils % (Manual) Nucleated RBC % Seg Neutrophils # 13.7 H Seg Neutrophils # Man Lymphocytes # (Manual) Monocytes # (Manual) Eosinophils # (Manual) Basophils # (Manual) PT INR Fibrinogen dRVVT Confirm Interp Factor V Activity POC ABG pH POC ABG pCO2 POC ABG pO2 ABG pO2 ABG HCO3 ABG Base Excess ABG Hemoglobin Oxyhemoglobin Sodium Potassium Chloride 108.6 H Carbon Dioxide 15 L BUN 125 H Creatinine 4.1 H Glucose 124 H POC Glucose 119 H Lactic Acid Calcium Ionized Calcium Phosphorus Magnesium Direct Bilirubin AST ALT Alkaline Phosphatase Lactate Dehydrogenase Troponin T C-Reactive Protein Total Protein Albumin Prealbumin Triglycerides Cholesterol LDL Cholesterol Direct HDL Cholesterol 25-OH Vitamin D Total PTH Intact Urine pH Urine WBC (Auto) Urine Creatinine Urine Total Protein Fluid Total Protein Vancomycin Trough Rheumatoid Factor Complement C4 Miscellaneous Test Crossmatch 09/19/16 09/19/16 09/19/16 11:25 17:53 23:36 WBC RBC Hgb Hct MCV MCH MCHC RDW Plt Count Lymph % (Auto) [place] % (Auto) Lymph # [place] # Baso # Seg Neutrophils % Seg Neuts % (Manual) Lymphocytes % (Manual) Monocytes % (Manual) Eosinophils % (Manual) Basophils % (Manual) Nucleated RBC % Seg Neutrophils # Seg Neutrophils # Man Lymphocytes # (Manual) Monocytes # (Manual) Eosinophils # (Manual) Basophils # (Manual) PT INR Fibrinogen dRVVT Confirm Interp Factor V Activity POC ABG pH POC ABG pCO2 POC ABG pO2 ABG pO2 ABG HCO3 ABG Base Excess ABG Hemoglobin Oxyhemoglobin Sodium Potassium Chloride Carbon Dioxide BUN Creatinine Glucose POC Glucose 160 H 245 H 121 H Lactic Acid Calcium Ionized Calcium Phosphorus Magnesium Direct Bilirubin AST ALT Alkaline Phosphatase Lactate Dehydrogenase Troponin T C-Reactive Protein Total Protein Albumin Prealbumin Triglycerides Cholesterol LDL Cholesterol Direct HDL Cholesterol 25-OH Vitamin D Total PTH Intact Urine pH Urine WBC (Auto) Urine Creatinine Urine Total Protein Fluid Total Protein Vancomycin Trough Rheumatoid Factor Complement C4 Miscellaneous Test Crossmatch 09/20/16 09/20/16 09/20/16 04:10 04:10 04:10 WBC 17.0 H RBC 3.21 L Hgb 8.2 L Hct 25.5 L MCV MCH 26 L MCHC RDW 20.9 H Plt Count Lymph % (Auto) [place] % (Auto) Lymph # [place] # Baso # Seg Neutrophils % Seg Neuts % (Manual) Lymphocytes % (Manual) Monocytes % (Manual) Eosinophils % (Manual) Basophils % (Manual) Nucleated RBC % Seg Neutrophils # Seg Neutrophils # Man Lymphocytes # (Manual) Monocytes # (Manual) Eosinophils # (Manual) Basophils # (Manual) PT INR Fibrinogen dRVVT Confirm Interp Factor V Activity POC ABG pH POC ABG pCO2 POC ABG pO2 ABG pO2 ABG HCO3 ABG Base Excess ABG Hemoglobin Oxyhemoglobin Sodium Potassium Chloride 111.0 H Carbon Dioxide 16 L BUN 129 H Creatinine 3.7 H Glucose 115 H POC Glucose Lactic Acid Calcium 8.2 L Ionized Calcium Phosphorus Magnesium Direct Bilirubin AST ALT Alkaline Phosphatase Lactate Dehydrogenase Troponin T C-Reactive Protein Total Protein Albumin Prealbumin Triglycerides 243 H Cholesterol LDL Cholesterol Direct HDL Cholesterol 25-OH Vitamin D Total PTH Intact Urine pH Urine WBC (Auto) Urine Creatinine Urine Total Protein Fluid Total Protein Vancomycin Trough Rheumatoid Factor Complement C4 Miscellaneous Test Crossmatch 09/20/16 09/20/16 09/20/16 05:40 11:52 16:50 WBC RBC Hgb Hct MCV MCH MCHC RDW Plt Count Lymph % (Auto) [place] % (Auto) Lymph # [place] # Baso # Seg Neutrophils % Seg Neuts % (Manual) Lymphocytes % (Manual) Monocytes % (Manual) Eosinophils % (Manual) Basophils % (Manual) Nucleated RBC % Seg Neutrophils # Seg Neutrophils # Man Lymphocytes # (Manual) Monocytes # (Manual) Eosinophils # (Manual) Basophils # (Manual) PT INR Fibrinogen dRVVT Confirm Interp Factor V Activity POC ABG pH POC ABG pCO2 POC ABG pO2 ABG pO2 ABG HCO3 ABG Base Excess ABG Hemoglobin Oxyhemoglobin Sodium Potassium Chloride Carbon Dioxide BUN Creatinine Glucose POC Glucose 131 H 183 H 236 H Lactic Acid Calcium Ionized Calcium Phosphorus Magnesium Direct Bilirubin AST ALT Alkaline Phosphatase Lactate Dehydrogenase Troponin T C-Reactive Protein Total Protein Albumin Prealbumin Triglycerides Cholesterol LDL Cholesterol Direct HDL Cholesterol 25-OH Vitamin D Total PTH Intact Urine pH Urine WBC (Auto) Urine Creatinine Urine Total Protein Fluid Total Protein Vancomycin Trough Rheumatoid Factor Complement C4 Miscellaneous Test Crossmatch 09/20/16 09/21/16 09/21/16 23:51 03:30 04:44 WBC RBC Hgb Hct MCV MCH MCHC RDW Plt Count Lymph % (Auto) [place] % (Auto) Lymph # [place] # Baso # Seg Neutrophils % Seg Neuts % (Manual) Lymphocytes % (Manual) Monocytes % (Manual) Eosinophils % (Manual) Basophils % (Manual) Nucleated RBC % Seg Neutrophils # Seg Neutrophils # Man Lymphocytes # (Manual) Monocytes # (Manual) Eosinophils # (Manual) Basophils # (Manual) PT INR Fibrinogen dRVVT Confirm Interp Factor V Activity POC ABG pH POC ABG pCO2 POC ABG pO2 ABG pO2 ABG HCO3 ABG Base Excess ABG Hemoglobin Oxyhemoglobin Sodium Potassium Chloride Carbon Dioxide BUN Creatinine Glucose POC Glucose 114 H 141 H Lactic Acid Calcium Ionized Calcium Phosphorus Magnesium 2.70 H Direct Bilirubin AST ALT Alkaline Phosphatase Lactate Dehydrogenase Troponin T C-Reactive Protein Total Protein Albumin Prealbumin Triglycerides Cholesterol LDL Cholesterol Direct HDL Cholesterol 25-OH Vitamin D Total PTH Intact Urine pH Urine WBC (Auto) Urine Creatinine Urine Total Protein Fluid Total Protein Vancomycin Trough Rheumatoid Factor Complement C4 Miscellaneous Test Crossmatch 09/21/16 09/21/16 09/21/16 07:45 07:45 10:01 WBC 13.8 H RBC 2.94 L Hgb 7.5 L Hct 23.5 L MCV MCH 26 L MCHC RDW 21.2 H Plt Count Lymph % (Auto) 6.9 L [place] % (Auto) 9.4 H Lymph # 0.9 L [place] # 1.3 H Baso # Seg Neutrophils % 83.2 H Seg Neuts % (Manual) Lymphocytes % (Manual) Monocytes % (Manual) Eosinophils % (Manual) Basophils % (Manual) Nucleated RBC % Seg Neutrophils # 11.5 H Seg Neutrophils # Man Lymphocytes # (Manual) Monocytes # (Manual) Eosinophils # (Manual) Basophils # (Manual) PT INR Fibrinogen dRVVT Confirm Interp Factor V Activity POC ABG pH 7.308 L POC ABG pCO2 31.9 L POC ABG pO2 148 H ABG pO2 ABG HCO3 ABG Base Excess ABG Hemoglobin Oxyhemoglobin Sodium 147 H Potassium Chloride 114.2 H Carbon Dioxide 15 L BUN 120 H Creatinine 3.9 H Glucose 156 H POC Glucose Lactic Acid Calcium 8.2 L Ionized Calcium Phosphorus Magnesium Direct Bilirubin AST ALT Alkaline Phosphatase Lactate Dehydrogenase Troponin T C-Reactive Protein Total Protein Albumin Prealbumin Triglycerides Cholesterol LDL Cholesterol Direct HDL Cholesterol 25-OH Vitamin D Total PTH Intact Urine pH Urine WBC (Auto) Urine Creatinine Urine Total Protein Fluid Total Protein Vancomycin Trough Rheumatoid Factor Complement C4 Miscellaneous Test Crossmatch 09/21/16 09/21/16 09/21/16 12:00 12:03 13:00 WBC RBC Hgb Hct MCV MCH MCHC RDW Plt Count Lymph % (Auto) [place] % (Auto) Lymph # [place] # Baso # Seg Neutrophils % Seg Neuts % (Manual) Lymphocytes % (Manual) Monocytes % (Manual) Eosinophils % (Manual) Basophils % (Manual) Nucleated RBC % Seg Neutrophils # Seg Neutrophils # Man Lymphocytes # (Manual) Monocytes # (Manual) Eosinophils # (Manual) Basophils # (Manual) PT INR Fibrinogen dRVVT Confirm Interp Factor V Activity POC ABG pH POC ABG pCO2 POC ABG pO2 ABG pO2 ABG HCO3 ABG Base Excess ABG Hemoglobin Oxyhemoglobin Sodium Potassium Chloride Carbon Dioxide BUN Creatinine Glucose POC Glucose 163 H Lactic Acid Calcium Ionized Calcium Phosphorus Magnesium Direct Bilirubin AST ALT Alkaline Phosphatase Lactate Dehydrogenase Troponin T C-Reactive Protein Total Protein Albumin Prealbumin Triglycerides Cholesterol LDL Cholesterol Direct HDL Cholesterol 25-OH Vitamin D Total PTH Intact Urine pH Urine WBC (Auto) Urine Creatinine 54.8 H Urine Total Protein Fluid Total Protein Vancomycin Trough 2.3 L Rheumatoid Factor Complement C4 Miscellaneous Test Crossmatch 09/21/16 09/21/16 09/22/16 16:51 23:17 06:27 WBC RBC Hgb Hct MCV MCH MCHC RDW Plt Count Lymph % (Auto) [place] % (Auto) Lymph # [place] # Baso # Seg Neutrophils % Seg Neuts % (Manual) Lymphocytes % (Manual) Monocytes % (Manual) Eosinophils % (Manual) Basophils % (Manual) Nucleated RBC % Seg Neutrophils # Seg Neutrophils # Man Lymphocytes # (Manual) Monocytes # (Manual) Eosinophils # (Manual) Basophils # (Manual) PT INR Fibrinogen dRVVT Confirm Interp Factor V Activity POC ABG pH POC ABG pCO2 POC ABG pO2 ABG pO2 ABG HCO3 ABG Base Excess ABG Hemoglobin Oxyhemoglobin Sodium Potassium Chloride Carbon Dioxide BUN Creatinine Glucose POC Glucose 206 H 114 H 115 H Lactic Acid Calcium Ionized Calcium Phosphorus Magnesium Direct Bilirubin AST ALT Alkaline Phosphatase Lactate Dehydrogenase Troponin T C-Reactive Protein Total Protein Albumin Prealbumin Triglycerides Cholesterol LDL Cholesterol Direct HDL Cholesterol 25-OH Vitamin D Total PTH Intact Urine pH Urine WBC (Auto) Urine Creatinine Urine Total Protein Fluid Total Protein Vancomycin Trough Rheumatoid Factor Complement C4 Miscellaneous Test Crossmatch 09/22/16 09/22/16 09/22/16 07:50 07:50 12:00 WBC 17.8 H RBC 3.04 L Hgb 8.0 L Hct 24.7 L MCV MCH 26 L MCHC RDW 21.6 H Plt Count Lymph % (Auto) [place] % (Auto) Lymph # [place] # Baso # Seg Neutrophils % Seg Neuts % (Manual) Lymphocytes % (Manual) Monocytes % (Manual) Eosinophils % (Manual) Basophils % (Manual) Nucleated RBC % Seg Neutrophils # Seg Neutrophils # Man Lymphocytes # (Manual) Monocytes # (Manual) Eosinophils # (Manual) Basophils # (Manual) PT INR Fibrinogen dRVVT Confirm Interp Factor V Activity POC ABG pH POC ABG pCO2 POC ABG pO2 ABG pO2 ABG HCO3 ABG Base Excess ABG Hemoglobin Oxyhemoglobin Sodium 150 H Potassium Chloride 118.2 H Carbon Dioxide 14 L BUN 111 H Creatinine 3.7 H Glucose 157 H POC Glucose 183 H Lactic Acid Calcium Ionized Calcium Phosphorus Magnesium Direct Bilirubin AST ALT Alkaline Phosphatase Lactate Dehydrogenase Troponin T C-Reactive Protein Total Protein Albumin Prealbumin Triglycerides Cholesterol LDL Cholesterol Direct HDL Cholesterol 25-OH Vitamin D Total PTH Intact Urine pH Urine WBC (Auto) Urine Creatinine Urine Total Protein Fluid Total Protein Vancomycin Trough Rheumatoid Factor Complement C4 Miscellaneous Test Crossmatch 09/22/16 09/22/16 09/23/16 17:29 23:10 05:00 WBC 19.2 H RBC 3.13 L Hgb 8.0 L Hct 25.2 L MCV MCH 26 L MCHC RDW 22.1 H Plt Count Lymph % (Auto) [place] % (Auto) Lymph # [place] # Baso # Seg Neutrophils % Seg Neuts % (Manual) 92.0 H Lymphocytes % (Manual) 3.0 L Monocytes % (Manual) Eosinophils % (Manual) Basophils % (Manual) Nucleated RBC % Seg Neutrophils # Seg Neutrophils # Man 17.7 H Lymphocytes # (Manual) 0.6 L Monocytes # (Manual) Eosinophils # (Manual) Basophils # (Manual) PT INR Fibrinogen dRVVT Confirm Interp Factor V Activity POC ABG pH POC ABG pCO2 POC ABG pO2 ABG pO2 ABG HCO3 ABG Base Excess ABG Hemoglobin Oxyhemoglobin Sodium Potassium Chloride Carbon Dioxide BUN Creatinine Glucose POC Glucose 197 H 169 H Lactic Acid Calcium Ionized Calcium Phosphorus Magnesium Direct Bilirubin AST ALT Alkaline Phosphatase Lactate Dehydrogenase Troponin T C-Reactive Protein Total Protein Albumin Prealbumin Triglycerides Cholesterol LDL Cholesterol Direct HDL Cholesterol 25-OH Vitamin D Total PTH Intact Urine pH Urine WBC (Auto) Urine Creatinine Urine Total Protein Fluid Total Protein Vancomycin Trough Rheumatoid Factor Complement C4 Miscellaneous Test Crossmatch 09/23/16 09/23/16 09/23/16 05:00 05:00 05:10 WBC RBC Hgb Hct MCV MCH MCHC RDW Plt Count Lymph % (Auto) [place] % (Auto) Lymph # [place] # Baso # Seg Neutrophils % Seg Neuts % (Manual) Lymphocytes % (Manual) Monocytes % (Manual) Eosinophils % (Manual) Basophils % (Manual) Nucleated RBC % Seg Neutrophils # Seg Neutrophils # Man Lymphocytes # (Manual) Monocytes # (Manual) Eosinophils # (Manual) Basophils # (Manual) PT INR Fibrinogen dRVVT Confirm Interp Factor V Activity POC ABG pH POC ABG pCO2 POC ABG pO2 ABG pO2 ABG HCO3 ABG Base Excess ABG Hemoglobin Oxyhemoglobin Sodium 147 H Potassium 3.2 L Chloride 115.7 H Carbon Dioxide 13 L BUN 111 H Creatinine 3.8 H Glucose 194 H POC Glucose 188 H Lactic Acid Calcium 7.3 L D Ionized Calcium Phosphorus Magnesium Direct Bilirubin AST ALT Alkaline Phosphatase Lactate Dehydrogenase Troponin T C-Reactive Protein 3.20 H Total Protein Albumin Prealbumin Triglycerides Cholesterol LDL Cholesterol Direct HDL Cholesterol 25-OH Vitamin D Total PTH Intact Urine pH Urine WBC (Auto) Urine Creatinine Urine Total Protein Fluid Total Protein Vancomycin Trough Rheumatoid Factor Complement C4 Miscellaneous Test Crossmatch 09/23/16 09/23/16 09/23/16 11:37 12:29 18:01 WBC RBC Hgb Hct MCV MCH MCHC RDW Plt Count Lymph % (Auto) [place] % (Auto) Lymph # [place] # Baso # Seg Neutrophils % Seg Neuts % (Manual) Lymphocytes % (Manual) Monocytes % (Manual) Eosinophils % (Manual) Basophils % (Manual) Nucleated RBC % Seg Neutrophils # Seg Neutrophils # Man Lymphocytes # (Manual) Monocytes # (Manual) Eosinophils # (Manual) Basophils # (Manual) PT INR Fibrinogen dRVVT Confirm Interp Factor V Activity POC ABG pH POC ABG pCO2 18.9 L POC ABG pO2 143 H ABG pO2 ABG HCO3 ABG Base Excess ABG Hemoglobin Oxyhemoglobin Sodium Potassium Chloride Carbon Dioxide BUN Creatinine Glucose POC Glucose 153 H 108 H Lactic Acid Calcium Ionized Calcium Phosphorus Magnesium Direct Bilirubin AST ALT Alkaline Phosphatase Lactate Dehydrogenase Troponin T C-Reactive Protein Total Protein Albumin Prealbumin Triglycerides Cholesterol LDL Cholesterol Direct HDL Cholesterol 25-OH Vitamin D Total PTH Intact Urine pH Urine WBC (Auto) Urine Creatinine Urine Total Protein Fluid Total Protein Vancomycin Trough Rheumatoid Factor Complement C4 Miscellaneous Test Crossmatch 09/23/16 09/23/16 09/24/16 21:19 23:43 05:16 WBC RBC Hgb Hct MCV MCH MCHC RDW Plt Count Lymph % (Auto) [place] % (Auto) Lymph # [place] # Baso # Seg Neutrophils % Seg Neuts % (Manual) Lymphocytes % (Manual) Monocytes % (Manual) Eosinophils % (Manual) Basophils % (Manual) Nucleated RBC % Seg Neutrophils # Seg Neutrophils # Man Lymphocytes # (Manual) Monocytes # (Manual) Eosinophils # (Manual) Basophils # (Manual) PT INR Fibrinogen dRVVT Confirm Interp Factor V Activity POC ABG pH POC ABG pCO2 17.3 L POC ABG pO2 112 H ABG pO2 ABG HCO3 ABG Base Excess ABG Hemoglobin Oxyhemoglobin Sodium Potassium Chloride Carbon Dioxide BUN Creatinine Glucose POC Glucose 143 H 164 H Lactic Acid Calcium Ionized Calcium Phosphorus Magnesium Direct Bilirubin AST ALT Alkaline Phosphatase Lactate Dehydrogenase Troponin T C-Reactive Protein Total Protein Albumin Prealbumin Triglycerides Cholesterol LDL Cholesterol Direct HDL Cholesterol 25-OH Vitamin D Total PTH Intact Urine pH Urine WBC (Auto) Urine Creatinine Urine Total Protein Fluid Total Protein Vancomycin Trough Rheumatoid Factor Complement C4 Miscellaneous Test Crossmatch 09/24/16 09/24/16 09/24/16 05:21 11:58 17:06 WBC RBC Hgb Hct MCV MCH MCHC RDW Plt Count Lymph % (Auto) [place] % (Auto) Lymph # [place] # Baso # Seg Neutrophils % Seg Neuts % (Manual) Lymphocytes % (Manual) Monocytes % (Manual) Eosinophils % (Manual) Basophils % (Manual) Nucleated RBC % Seg Neutrophils # Seg Neutrophils # Man Lymphocytes # (Manual) Monocytes # (Manual) Eosinophils # (Manual) Basophils # (Manual) PT INR Fibrinogen dRVVT Confirm Interp Factor V Activity POC ABG pH POC ABG pCO2 POC ABG pO2 ABG pO2 ABG HCO3 ABG Base Excess ABG Hemoglobin Oxyhemoglobin Sodium Potassium Chloride Carbon Dioxide 10 L BUN 103 H Creatinine 4.3 H Glucose 163 H POC Glucose 173 H 167 H Lactic Acid Calcium 6.5 L Ionized Calcium Phosphorus Magnesium Direct Bilirubin AST ALT Alkaline Phosphatase Lactate Dehydrogenase Troponin T C-Reactive Protein Total Protein Albumin Prealbumin Triglycerides Cholesterol LDL Cholesterol Direct HDL Cholesterol 25-OH Vitamin D Total PTH Intact Urine pH Urine WBC (Auto) Urine Creatinine Urine Total Protein Fluid Total Protein Vancomycin Trough Rheumatoid Factor Complement C4 Miscellaneous Test Crossmatch 09/24/16 09/24/16 09/24/16 20:15 21:02 23:48 WBC RBC Hgb Hct MCV MCH MCHC RDW Plt Count Lymph % (Auto) [place] % (Auto) Lymph # [place] # Baso # Seg Neutrophils % Seg Neuts % (Manual) Lymphocytes % (Manual) Monocytes % (Manual) Eosinophils % (Manual) Basophils % (Manual) Nucleated RBC % Seg Neutrophils # Seg Neutrophils # Man Lymphocytes # (Manual) Monocytes # (Manual) Eosinophils # (Manual) Basophils # (Manual) PT INR Fibrinogen dRVVT Confirm Interp Factor V Activity POC ABG pH 7.288 L POC ABG pCO2 30.2 L 21.5 L POC ABG pO2 32 L 39 L ABG pO2 ABG HCO3 ABG Base Excess ABG Hemoglobin Oxyhemoglobin Sodium Potassium Chloride Carbon Dioxide BUN Creatinine Glucose POC Glucose 109 H Lactic Acid Calcium Ionized Calcium Phosphorus Magnesium Direct Bilirubin AST ALT Alkaline Phosphatase Lactate Dehydrogenase Troponin T C-Reactive Protein Total Protein Albumin Prealbumin Triglycerides Cholesterol LDL Cholesterol Direct HDL Cholesterol 25-OH Vitamin D Total PTH Intact Urine pH Urine WBC (Auto) Urine Creatinine Urine Total Protein Fluid Total Protein Vancomycin Trough Rheumatoid Factor Complement C4 Miscellaneous Test Crossmatch 09/25/16 09/25/16 09/25/16 04:20 04:20 04:20 WBC RBC 2.58 L Hgb 7.0 L Hct 21.0 L MCV MCH 27 L MCHC RDW 23.8 H Plt Count Lymph % (Auto) [place] % (Auto) Lymph # [place] # Baso # Seg Neutrophils % Seg Neuts % (Manual) Lymphocytes % (Manual) 12.0 L Monocytes % (Manual) Eosinophils % (Manual) 7.0 H Basophils % (Manual) 2.0 H Nucleated RBC % Seg Neutrophils # Seg Neutrophils # Man Lymphocytes # (Manual) 0.9 L Monocytes # (Manual) Eosinophils # (Manual) 0.5 H Basophils # (Manual) PT INR Fibrinogen dRVVT Confirm Interp Factor V Activity POC ABG pH POC ABG pCO2 POC ABG pO2 ABG pO2 ABG HCO3 ABG Base Excess ABG Hemoglobin Oxyhemoglobin Sodium Potassium Chloride Carbon Dioxide 15 L BUN 72 H Creatinine 3.8 H Glucose POC Glucose Lactic Acid Calcium 6.0 L Ionized Calcium Phosphorus 4.60 H Magnesium 1.60 L Direct Bilirubin AST ALT Alkaline Phosphatase Lactate Dehydrogenase Troponin T C-Reactive Protein Total Protein Albumin Prealbumin Triglycerides Cholesterol LDL Cholesterol Direct HDL Cholesterol 25-OH Vitamin D Total PTH Intact Urine pH Urine WBC (Auto) Urine Creatinine Urine Total Protein Fluid Total Protein Vancomycin Trough Rheumatoid Factor Complement C4 Miscellaneous Test Crossmatch 09/25/16 09/25/16 09/25/16 04:57 08:02 10:30 WBC RBC Hgb Hct MCV MCH MCHC RDW Plt Count Lymph % (Auto) [place] % (Auto) Lymph # [place] # Baso # Seg Neutrophils % Seg Neuts % (Manual) Lymphocytes % (Manual) Monocytes % (Manual) Eosinophils % (Manual) Basophils % (Manual) Nucleated RBC % Seg Neutrophils # Seg Neutrophils # Man Lymphocytes # (Manual) Monocytes # (Manual) Eosinophils # (Manual) Basophils # (Manual) PT INR Fibrinogen dRVVT Confirm Interp Factor V Activity POC ABG pH POC ABG pCO2 24.7 L POC ABG pO2 152 H ABG pO2 ABG HCO3 ABG Base Excess ABG Hemoglobin Oxyhemoglobin Sodium Potassium Chloride Carbon Dioxide BUN Creatinine Glucose POC Glucose 113 H Lactic Acid Calcium Ionized Calcium Phosphorus Magnesium Direct Bilirubin AST ALT Alkaline Phosphatase Lactate Dehydrogenase Troponin T C-Reactive Protein Total Protein Albumin Prealbumin Triglycerides Cholesterol LDL Cholesterol Direct HDL Cholesterol 25-OH Vitamin D Total PTH Intact Urine pH Urine WBC (Auto) Urine Creatinine Urine Total Protein Fluid Total Protein Vancomycin Trough Rheumatoid Factor Complement C4 Miscellaneous Test Crossmatch See Detail 09/25/16 09/25/16 09/25/16 12:05 17:44 23:47 WBC RBC Hgb Hct MCV MCH MCHC RDW Plt Count Lymph % (Auto) [place] % (Auto) Lymph # [place] # Baso # Seg Neutrophils % Seg Neuts % (Manual) Lymphocytes % (Manual) Monocytes % (Manual) Eosinophils % (Manual) Basophils % (Manual) Nucleated RBC % Seg Neutrophils # Seg Neutrophils # Man Lymphocytes # (Manual) Monocytes # (Manual) Eosinophils # (Manual) Basophils # (Manual) PT INR Fibrinogen dRVVT Confirm Interp Factor V Activity POC ABG pH POC ABG pCO2 POC ABG pO2 ABG pO2 ABG HCO3 ABG Base Excess ABG Hemoglobin Oxyhemoglobin Sodium Potassium Chloride Carbon Dioxide BUN Creatinine Glucose POC Glucose 117 H 119 H 150 H Lactic Acid Calcium Ionized Calcium Phosphorus Magnesium Direct Bilirubin AST ALT Alkaline Phosphatase Lactate Dehydrogenase Troponin T C-Reactive Protein Total Protein Albumin Prealbumin Triglycerides Cholesterol LDL Cholesterol Direct HDL Cholesterol 25-OH Vitamin D Total PTH Intact Urine pH Urine WBC (Auto) Urine Creatinine Urine Total Protein Fluid Total Protein Vancomycin Trough Rheumatoid Factor Complement C4 Miscellaneous Test Crossmatch 09/26/16 09/26/16 09/26/16 04:25 04:25 04:25 WBC RBC 2.65 L Hgb 7.4 L Hct 21.6 L MCV MCH MCHC RDW 22.5 H Plt Count Lymph % (Auto) [place] % (Auto) Lymph # [place] # Baso # Seg Neutrophils % Seg Neuts % (Manual) Lymphocytes % (Manual) 6.0 L Monocytes % (Manual) Eosinophils % (Manual) 11.0 H Basophils % (Manual) Nucleated RBC % Seg Neutrophils # Seg Neutrophils # Man Lymphocytes # (Manual) 0.4 L Monocytes # (Manual) Eosinophils # (Manual) 0.6 H Basophils # (Manual) PT INR Fibrinogen dRVVT Confirm Interp Factor V Activity POC ABG pH POC ABG pCO2 POC ABG pO2 ABG pO2 ABG HCO3 ABG Base Excess ABG Hemoglobin Oxyhemoglobin Sodium Potassium Chloride 97.0 L Carbon Dioxide 19 L BUN 43 H Creatinine 2.6 H Glucose 130 H POC Glucose Lactic Acid 4.40 H* Calcium 6.7 L Ionized Calcium Phosphorus Magnesium Direct Bilirubin AST ALT Alkaline Phosphatase Lactate Dehydrogenase Troponin T C-Reactive Protein Total Protein Albumin Prealbumin Triglycerides Cholesterol LDL Cholesterol Direct HDL Cholesterol 25-OH Vitamin D Total PTH Intact Urine pH Urine WBC (Auto) Urine Creatinine Urine Total Protein Fluid Total Protein Vancomycin Trough Rheumatoid Factor Complement C4 Miscellaneous Test Crossmatch 09/26/16 09/26/16 09/26/16 05:20 11:44 12:12 WBC RBC Hgb Hct MCV MCH MCHC RDW Plt Count Lymph % (Auto) [place] % (Auto) Lymph # [place] # Baso # Seg Neutrophils % Seg Neuts % (Manual) Lymphocytes % (Manual) Monocytes % (Manual) Eosinophils % (Manual) Basophils % (Manual) Nucleated RBC % Seg Neutrophils # Seg Neutrophils # Man Lymphocytes # (Manual) Monocytes # (Manual) Eosinophils # (Manual) Basophils # (Manual) PT INR Fibrinogen dRVVT Confirm Interp Factor V Activity POC ABG pH POC ABG pCO2 27.0 L POC ABG pO2 69 L ABG pO2 ABG HCO3 ABG Base Excess ABG Hemoglobin Oxyhemoglobin Sodium Potassium Chloride Carbon Dioxide BUN Creatinine Glucose POC Glucose 121 H 128 H Lactic Acid Calcium Ionized Calcium Phosphorus Magnesium Direct Bilirubin AST ALT Alkaline Phosphatase Lactate Dehydrogenase Troponin T C-Reactive Protein Total Protein Albumin Prealbumin Triglycerides Cholesterol LDL Cholesterol Direct HDL Cholesterol 25-OH Vitamin D Total PTH Intact Urine pH Urine WBC (Auto) Urine Creatinine Urine Total Protein Fluid Total Protein Vancomycin Trough Rheumatoid Factor Complement C4 Miscellaneous Test Crossmatch 09/26/16 09/26/16 09/27/16 18:31 23:40 08:20 WBC RBC Hgb Hct MCV MCH MCHC RDW Plt Count Lymph % (Auto) [place] % (Auto) Lymph # [place] # Baso # Seg Neutrophils % Seg Neuts % (Manual) Lymphocytes % (Manual) Monocytes % (Manual) Eosinophils % (Manual) Basophils % (Manual) Nucleated RBC % Seg Neutrophils # Seg Neutrophils # Man Lymphocytes # (Manual) Monocytes # (Manual) Eosinophils # (Manual) Basophils # (Manual) PT INR Fibrinogen dRVVT Confirm Interp Factor V Activity POC ABG pH POC ABG pCO2 POC ABG pO2 ABG pO2 ABG HCO3 ABG Base Excess ABG Hemoglobin Oxyhemoglobin Sodium Potassium Chloride Carbon Dioxide BUN Creatinine Glucose POC Glucose 120 H 133 H Lactic Acid 4.10 H* Calcium Ionized Calcium Phosphorus Magnesium Direct Bilirubin AST ALT Alkaline Phosphatase Lactate Dehydrogenase Troponin T C-Reactive Protein Total Protein Albumin Prealbumin Triglycerides Cholesterol LDL Cholesterol Direct HDL Cholesterol 25-OH Vitamin D Total PTH Intact Urine pH Urine WBC (Auto) Urine Creatinine Urine Total Protein Fluid Total Protein Vancomycin Trough Rheumatoid Factor Complement C4 Miscellaneous Test Crossmatch 09/27/16 09/27/16 09/27/16 11:23 15:00 18:15 WBC RBC Hgb Hct MCV MCH MCHC RDW Plt Count Lymph % (Auto) [place] % (Auto) Lymph # [place] # Baso # Seg Neutrophils % Seg Neuts % (Manual) Lymphocytes % (Manual) Monocytes % (Manual) Eosinophils % (Manual) Basophils % (Manual) Nucleated RBC % Seg Neutrophils # Seg Neutrophils # Man Lymphocytes # (Manual) Monocytes # (Manual) Eosinophils # (Manual) Basophils # (Manual) PT INR Fibrinogen dRVVT Confirm Interp Factor V Activity POC ABG pH 7.459 H POC ABG pCO2 27.1 L POC ABG pO2 140 H ABG pO2 ABG HCO3 ABG Base Excess ABG Hemoglobin Oxyhemoglobin Sodium Potassium Chloride Carbon Dioxide BUN Creatinine Glucose POC Glucose 114 H 127 H Lactic Acid Calcium Ionized Calcium Phosphorus Magnesium Direct Bilirubin AST ALT Alkaline Phosphatase Lactate Dehydrogenase Troponin T C-Reactive Protein Total Protein Albumin Prealbumin Triglycerides Cholesterol LDL Cholesterol Direct HDL Cholesterol 25-OH Vitamin D Total PTH Intact Urine pH Urine WBC (Auto) Urine Creatinine Urine Total Protein Fluid Total Protein Vancomycin Trough Rheumatoid Factor Complement C4 Miscellaneous Test Crossmatch 09/27/16 09/27/16 09/28/16 Unknown Unknown 03:45 WBC RBC 2.49 L Hgb 6.8 L Hct 20.7 L MCV MCH 27 L MCHC RDW 22.1 H Plt Count Lymph % (Auto) [place] % (Auto) Lymph # [place] # Baso # Seg Neutrophils % Seg Neuts % (Manual) 32.0 L Lymphocytes % (Manual) 12.0 L Monocytes % (Manual) 11.0 H Eosinophils % (Manual) 10.0 H Basophils % (Manual) Nucleated RBC % Seg Neutrophils # Seg Neutrophils # Man Lymphocytes # (Manual) 1.0 L Monocytes # (Manual) 0.9 H Eosinophils # (Manual) 0.8 H Basophils # (Manual) PT INR Fibrinogen dRVVT Confirm Interp Factor V Activity POC ABG pH POC ABG pCO2 POC ABG pO2 ABG pO2 ABG HCO3 ABG Base Excess ABG Hemoglobin Oxyhemoglobin Sodium 135 L 135 L Potassium 3.5 L Chloride 93.6 L 94.4 L Carbon Dioxide 17 L 21 L BUN 45 H 28 H Creatinine 3.3 H 2.5 H Glucose 106 H POC Glucose Lactic Acid Calcium 7.3 L 7.1 L Ionized Calcium Phosphorus Magnesium Direct Bilirubin AST ALT Alkaline Phosphatase Lactate Dehydrogenase Troponin T C-Reactive Protein Total Protein Albumin Prealbumin Triglycerides Cholesterol LDL Cholesterol Direct HDL Cholesterol 25-OH Vitamin D Total PTH Intact Urine pH Urine WBC (Auto) Urine Creatinine Urine Total Protein Fluid Total Protein Vancomycin Trough Rheumatoid Factor Complement C4 Miscellaneous Test Crossmatch 0809/[id number] 09/28/16 03:45 07:25 11:58 WBC 13.3 H RBC 3.01 L Hgb 8.4 L Hct 25.0 L MCV MCH MCHC RDW 20.5 H Plt Count 128 L Lymph % (Auto) [place] % (Auto) Lymph # [place] # Baso # Seg Neutrophils % Seg Neuts % (Manual) Lymphocytes % (Manual) 7.0 L Monocytes % (Manual) Eosinophils % (Manual) 6.0 H Basophils % (Manual) Nucleated RBC % Seg Neutrophils # Seg Neutrophils # Man Lymphocytes # (Manual) 0.9 L Monocytes # (Manual) Eosinophils # (Manual) 0.8 H Basophils # (Manual) PT INR Fibrinogen dRVVT Confirm Interp Factor V Activity POC ABG pH POC ABG pCO2 POC ABG pO2 ABG pO2 ABG HCO3 ABG Base Excess ABG Hemoglobin Oxyhemoglobin Sodium Potassium Chloride Carbon Dioxide BUN Creatinine Glucose POC Glucose 121 H Lactic Acid 4.50 H* Calcium Ionized Calcium Phosphorus Magnesium Direct Bilirubin AST ALT Alkaline Phosphatase Lactate Dehydrogenase Troponin T C-Reactive Protein Total Protein Albumin Prealbumin Triglycerides Cholesterol LDL Cholesterol Direct HDL Cholesterol 25-OH Vitamin D Total PTH Intact Urine pH Urine WBC (Auto) Urine Creatinine Urine Total Protein Fluid Total Protein Vancomycin Trough Rheumatoid Factor Complement C4 Miscellaneous Test Crossmatch 09/29/16 09/29/16 09/29/16 06:45 06:45 06:45 WBC 14.9 H RBC 2.74 L Hgb 7.6 L Hct 23.2 L MCV MCH MCHC RDW 20.5 H Plt Count 81 L Lymph % (Auto) [place] % (Auto) Lymph # [place] # Baso # Seg Neutrophils % Seg Neuts % (Manual) 81.0 H Lymphocytes % (Manual) 4.0 L Monocytes % (Manual) Eosinophils % (Manual) Basophils % (Manual) Nucleated RBC % Seg Neutrophils # Seg Neutrophils # Man 12.1 H Lymphocytes # (Manual) 0.6 L Monocytes # (Manual) Eosinophils # (Manual) Basophils # (Manual) PT INR Fibrinogen dRVVT Confirm Interp Factor V Activity POC ABG pH POC ABG pCO2 POC ABG pO2 ABG pO2 ABG HCO3 ABG Base Excess ABG Hemoglobin Oxyhemoglobin Sodium 133 L Potassium 3.4 L Chloride 92.5 L Carbon Dioxide 21 L BUN 33 H Creatinine 3.0 H Glucose POC Glucose Lactic Acid Calcium 6.6 L Ionized Calcium Phosphorus Magnesium 1.40 L Direct Bilirubin 0.9 H AST ALT Alkaline Phosphatase Lactate Dehydrogenase Troponin T C-Reactive Protein Total Protein 4.3 L Albumin 1.3 L Prealbumin Triglycerides Cholesterol LDL Cholesterol Direct HDL Cholesterol 25-OH Vitamin D Total PTH Intact Urine pH Urine WBC (Auto) Urine Creatinine Urine Total Protein Fluid Total Protein Vancomycin Trough Rheumatoid Factor Complement C4 Miscellaneous Test Crossmatch 09/29/16 09/29/16 09/30/16 17:52 20:12 00:07 WBC RBC Hgb Hct MCV MCH MCHC RDW Plt Count Lymph % (Auto) [place] % (Auto) Lymph # [place] # Baso # Seg Neutrophils % Seg Neuts % (Manual) Lymphocytes % (Manual) Monocytes % (Manual) Eosinophils % (Manual) Basophils % (Manual) Nucleated RBC % Seg Neutrophils # Seg Neutrophils # Man Lymphocytes # (Manual) Monocytes # (Manual) Eosinophils # (Manual) Basophils # (Manual) PT INR Fibrinogen dRVVT Confirm Interp Factor V Activity POC ABG pH POC ABG pCO2 POC ABG pO2 ABG pO2 ABG HCO3 ABG Base Excess ABG Hemoglobin Oxyhemoglobin Sodium Potassium Chloride Carbon Dioxide BUN Creatinine Glucose POC Glucose 50 L 51 L Lactic Acid Calcium Ionized Calcium Phosphorus Magnesium Direct Bilirubin AST ALT Alkaline Phosphatase Lactate Dehydrogenase Troponin T 0.204 H* C-Reactive Protein Total Protein Albumin Prealbumin Triglycerides Cholesterol 31 L LDL Cholesterol Direct 4 L HDL Cholesterol 3 L 25-OH Vitamin D Total PTH Intact Urine pH Urine WBC (Auto) Urine Creatinine Urine Total Protein Fluid Total Protein Vancomycin Trough Rheumatoid Factor Complement C4 Miscellaneous Test Crossmatch 09/30/16 09/30/16 09/30/16 01:30 05:15 06:10 WBC RBC Hgb Hct MCV MCH MCHC RDW Plt Count Lymph % (Auto) [place] % (Auto) Lymph # [place] # Baso # Seg Neutrophils % Seg Neuts % (Manual) Lymphocytes % (Manual) Monocytes % (Manual) Eosinophils % (Manual) Basophils % (Manual) Nucleated RBC % Seg Neutrophils # Seg Neutrophils # Man Lymphocytes # (Manual) Monocytes # (Manual) Eosinophils # (Manual) Basophils # (Manual) PT INR Fibrinogen dRVVT Confirm Interp Factor V Activity POC ABG pH POC ABG pCO2 POC ABG pO2 ABG pO2 ABG HCO3 ABG Base Excess ABG Hemoglobin Oxyhemoglobin Sodium 133 L Potassium 3.2 L Chloride 93.2 L Carbon Dioxide 19 L BUN 36 H Creatinine 3.2 H Glucose 104 H POC Glucose 167 H 146 H Lactic Acid Calcium 6.4 L Ionized Calcium Phosphorus Magnesium 1.60 L Direct Bilirubin AST ALT Alkaline Phosphatase Lactate Dehydrogenase Troponin T C-Reactive Protein Total Protein Albumin Prealbumin Triglycerides Cholesterol LDL Cholesterol Direct HDL Cholesterol 25-OH Vitamin D Total PTH Intact Urine pH Urine WBC (Auto) Urine Creatinine Urine Total Protein Fluid Total Protein Vancomycin Trough Rheumatoid Factor Complement C4 Miscellaneous Test Crossmatch 09/30/16 09/30/16 09/30/16 11:26 13:39 18:38 WBC RBC Hgb Hct MCV MCH MCHC RDW Plt Count Lymph % (Auto) [place] % (Auto) Lymph # [place] # Baso # Seg Neutrophils % Seg Neuts % (Manual) Lymphocytes % (Manual) Monocytes % (Manual) Eosinophils % (Manual) Basophils % (Manual) Nucleated RBC % Seg Neutrophils # Seg Neutrophils # Man Lymphocytes # (Manual) Monocytes # (Manual) Eosinophils # (Manual) Basophils # (Manual) PT INR Fibrinogen dRVVT Confirm Interp Factor V Activity POC ABG pH 7.479 H POC ABG pCO2 29.8 L POC ABG pO2 117 H ABG pO2 ABG HCO3 ABG Base Excess ABG Hemoglobin Oxyhemoglobin Sodium Potassium Chloride Carbon Dioxide BUN Creatinine Glucose POC Glucose 140 H 122 H Lactic Acid Calcium Ionized Calcium Phosphorus Magnesium Direct Bilirubin AST ALT Alkaline Phosphatase Lactate Dehydrogenase Troponin T C-Reactive Protein Total Protein Albumin Prealbumin Triglycerides Cholesterol LDL Cholesterol Direct HDL Cholesterol 25-OH Vitamin D Total PTH Intact Urine pH Urine WBC (Auto) Urine Creatinine Urine Total Protein Fluid Total Protein Vancomycin Trough Rheumatoid Factor Complement C4 Miscellaneous Test Crossmatch 10/01/16 10/01/16 10/01/16 06:00 06:00 12:37 WBC 12.6 H RBC 2.75 L Hgb 7.3 L Hct 23.3 L MCV MCH 27 L MCHC RDW 20.6 H Plt Count 72 L Lymph % (Auto) [place] % (Auto) Lymph # [place] # Baso # Seg Neutrophils % Seg Neuts % (Manual) 31.0 L Lymphocytes % (Manual) 8.0 L Monocytes % (Manual) Eosinophils % (Manual) Basophils % (Manual) Nucleated RBC % 3.0 H Seg Neutrophils # Seg Neutrophils # Man Lymphocytes # (Manual) 1.0 L Monocytes # (Manual) Eosinophils # (Manual) Basophils # (Manual) PT INR Fibrinogen dRVVT Confirm Interp Factor V Activity POC ABG pH POC ABG pCO2 POC ABG pO2 ABG pO2 ABG HCO3 ABG Base Excess ABG Hemoglobin Oxyhemoglobin Sodium 127 L Potassium Chloride 86.8 L Carbon Dioxide 20 L BUN 42 H Creatinine 3.5 H Glucose POC Glucose 65 L Lactic Acid Calcium 7.0 L Ionized Calcium Phosphorus Magnesium Direct Bilirubin AST ALT Alkaline Phosphatase Lactate Dehydrogenase Troponin T C-Reactive Protein Total Protein Albumin Prealbumin Triglycerides Cholesterol LDL Cholesterol Direct HDL Cholesterol 25-OH Vitamin D Total PTH Intact Urine pH Urine WBC (Auto) Urine Creatinine Urine Total Protein Fluid Total Protein Vancomycin Trough Rheumatoid Factor Complement C4 Miscellaneous Test Crossmatch 10/01/16 10/01/16 10/02/16 17:39 23:32 00:59 WBC RBC Hgb Hct MCV MCH MCHC RDW Plt Count Lymph % (Auto) [place] % (Auto) Lymph # [place] # Baso # Seg Neutrophils % Seg Neuts % (Manual) Lymphocytes % (Manual) Monocytes % (Manual) Eosinophils % (Manual) Basophils % (Manual) Nucleated RBC % Seg Neutrophils # Seg Neutrophils # Man Lymphocytes # (Manual) Monocytes # (Manual) Eosinophils # (Manual) Basophils # (Manual) PT INR Fibrinogen dRVVT Confirm Interp Factor V Activity POC ABG pH POC ABG pCO2 POC ABG pO2 ABG pO2 ABG HCO3 ABG Base Excess ABG Hemoglobin Oxyhemoglobin Sodium Potassium Chloride Carbon Dioxide BUN Creatinine Glucose POC Glucose 107 H 52 L 145 H Lactic Acid Calcium Ionized Calcium Phosphorus Magnesium Direct Bilirubin AST ALT Alkaline Phosphatase Lactate Dehydrogenase Troponin T C-Reactive Protein Total Protein Albumin Prealbumin Triglycerides Cholesterol LDL Cholesterol Direct HDL Cholesterol 25-OH Vitamin D Total PTH Intact Urine pH Urine WBC (Auto) Urine Creatinine Urine Total Protein Fluid Total Protein Vancomycin Trough Rheumatoid Factor Complement C4 Miscellaneous Test Crossmatch 10/02/16 10/02/16 10/02/16 10:30 10:50 10:50 WBC 14.7 H RBC 2.76 L Hgb 7.4 L Hct 23.6 L MCV MCH 27 L MCHC RDW 20.2 H Plt Count 79 L Lymph % (Auto) [place] % (Auto) Lymph # [place] # Baso # Seg Neutrophils % Seg Neuts % (Manual) 86.0 H Lymphocytes % (Manual) 6.0 L Monocytes % (Manual) Eosinophils % (Manual) Basophils % (Manual) Nucleated RBC % Seg Neutrophils # Seg Neutrophils # Man 12.6 H Lymphocytes # (Manual) 0.9 L Monocytes # (Manual) Eosinophils # (Manual) Basophils # (Manual) PT INR Fibrinogen dRVVT Confirm Interp Factor V Activity POC ABG pH 7.486 H POC ABG pCO2 30.1 L POC ABG pO2 108 H ABG pO2 ABG HCO3 ABG Base Excess ABG Hemoglobin Oxyhemoglobin Sodium 131 L Potassium 3.4 L Chloride 89.9 L Carbon Dioxide BUN 26 H Creatinine 2.6 H Glucose POC Glucose Lactic Acid Calcium 7.0 L Ionized Calcium Phosphorus Magnesium Direct Bilirubin AST ALT Alkaline Phosphatase Lactate Dehydrogenase Troponin T C-Reactive Protein Total Protein Albumin Prealbumin Triglycerides Cholesterol LDL Cholesterol Direct HDL Cholesterol 25-OH Vitamin D Total PTH Intact Urine pH Urine WBC (Auto) Urine Creatinine Urine Total Protein Fluid Total Protein Vancomycin Trough Rheumatoid Factor Complement C4 Miscellaneous Test Crossmatch 10/02/16 10/03/16 10/03/16 23:45 00:45 05:10 WBC 12.9 H RBC 2.77 L Hgb 7.6 L Hct 23.7 L MCV MCH 27 L MCHC RDW 19.7 H Plt Count 89 L Lymph % (Auto) [place] % (Auto) Lymph # [place] # Baso # Seg Neutrophils % Seg Neuts % (Manual) Lymphocytes % (Manual) 8.0 L Monocytes % (Manual) Eosinophils % (Manual) Basophils % (Manual) Nucleated RBC % Seg Neutrophils # 11.9 H Seg Neutrophils # Man Lymphocytes # (Manual) 1.0 L Monocytes # (Manual) Eosinophils # (Manual) Basophils # (Manual) PT INR Fibrinogen dRVVT Confirm Interp Factor V Activity POC ABG pH POC ABG pCO2 POC ABG pO2 ABG pO2 ABG HCO3 ABG Base Excess ABG Hemoglobin Oxyhemoglobin Sodium Potassium Chloride Carbon Dioxide BUN Creatinine Glucose POC Glucose 55 L 199 H Lactic Acid Calcium Ionized Calcium Phosphorus Magnesium Direct Bilirubin AST ALT Alkaline Phosphatase Lactate Dehydrogenase Troponin T C-Reactive Protein Total Protein Albumin Prealbumin Triglycerides Cholesterol LDL Cholesterol Direct HDL Cholesterol 25-OH Vitamin D Total PTH Intact Urine pH Urine WBC (Auto) Urine Creatinine Urine Total Protein Fluid Total Protein Vancomycin Trough Rheumatoid Factor Complement C4 Miscellaneous Test Crossmatch 10/03/16 10/03/16 10/03/16 05:10 12:14 13:18 WBC RBC Hgb Hct MCV MCH MCHC RDW Plt Count Lymph % (Auto) [place] % (Auto) Lymph # [place] # Baso # Seg Neutrophils % Seg Neuts % (Manual) Lymphocytes % (Manual) Monocytes % (Manual) Eosinophils % (Manual) Basophils % (Manual) Nucleated RBC % Seg Neutrophils # Seg Neutrophils # Man Lymphocytes # (Manual) Monocytes # (Manual) Eosinophils # (Manual) Basophils # (Manual) PT INR Fibrinogen dRVVT Confirm Interp Factor V Activity POC ABG pH POC ABG pCO2 POC ABG pO2 ABG pO2 ABG HCO3 ABG Base Excess ABG Hemoglobin Oxyhemoglobin Sodium 129 L Potassium 3.3 L Chloride 88.8 L Carbon Dioxide 20 L BUN 29 H Creatinine 2.8 H Glucose POC Glucose 68 L 127 H Lactic Acid Calcium 7.2 L Ionized Calcium Phosphorus Magnesium Direct Bilirubin AST ALT Alkaline Phosphatase Lactate Dehydrogenase Troponin T C-Reactive Protein Total Protein Albumin Prealbumin Triglycerides Cholesterol LDL Cholesterol Direct HDL Cholesterol 25-OH Vitamin D Total PTH Intact Urine pH Urine WBC (Auto) Urine Creatinine Urine Total Protein Fluid Total Protein Vancomycin Trough Rheumatoid Factor Complement C4 Miscellaneous Test Crossmatch 10/03/16 10/03/16 10/03/16 14:42 18:21 19:09 WBC RBC Hgb Hct MCV MCH MCHC RDW Plt Count Lymph % (Auto) [place] % (Auto) Lymph # [place] # Baso # Seg Neutrophils % Seg Neuts % (Manual) Lymphocytes % (Manual) Monocytes % (Manual) Eosinophils % (Manual) Basophils % (Manual) Nucleated RBC % Seg Neutrophils # Seg Neutrophils # Man Lymphocytes # (Manual) Monocytes # (Manual) Eosinophils # (Manual) Basophils # (Manual) PT INR Fibrinogen dRVVT Confirm Interp Factor V Activity POC ABG pH 7.499 H POC ABG pCO2 28.4 L POC ABG pO2 44 L ABG pO2 ABG HCO3 ABG Base Excess ABG Hemoglobin Oxyhemoglobin Sodium Potassium Chloride Carbon Dioxide BUN Creatinine Glucose POC Glucose 64 L 205 H Lactic Acid Calcium Ionized Calcium Phosphorus Magnesium Direct Bilirubin AST ALT Alkaline Phosphatase Lactate Dehydrogenase Troponin T C-Reactive Protein Total Protein Albumin Prealbumin Triglycerides Cholesterol LDL Cholesterol Direct HDL Cholesterol 25-OH Vitamin D Total PTH Intact Urine pH Urine WBC (Auto) Urine Creatinine Urine Total Protein Fluid Total Protein Vancomycin Trough Rheumatoid Factor Complement C4 Miscellaneous Test Crossmatch 10/03/16 10/04/16 10/04/16 23:33 04:18 06:30 WBC RBC 2.54 L Hgb 7.1 L Hct 21.7 L MCV MCH MCHC RDW 19.5 H Plt Count 76 L Lymph % (Auto) [place] % (Auto) Lymph # [place] # Baso # Seg Neutrophils % Seg Neuts % (Manual) 88.0 H Lymphocytes % (Manual) 6.0 L Monocytes % (Manual) Eosinophils % (Manual) Basophils % (Manual) Nucleated RBC % Seg Neutrophils # Seg Neutrophils # Man 8.8 H Lymphocytes # (Manual) 0.6 L Monocytes # (Manual) Eosinophils # (Manual) Basophils # (Manual) PT INR Fibrinogen dRVVT Confirm Interp Factor V Activity POC ABG pH 7.461 H POC ABG pCO2 33.6 L POC ABG pO2 211 H ABG pO2 ABG HCO3 ABG Base Excess ABG Hemoglobin Oxyhemoglobin Sodium Potassium Chloride Carbon Dioxide BUN Creatinine Glucose POC Glucose 136 H Lactic Acid Calcium Ionized Calcium Phosphorus Magnesium Direct Bilirubin AST ALT Alkaline Phosphatase Lactate Dehydrogenase Troponin T C-Reactive Protein Total Protein Albumin Prealbumin Triglycerides Cholesterol LDL Cholesterol Direct HDL Cholesterol 25-OH Vitamin D Total PTH Intact Urine pH Urine WBC (Auto) Urine Creatinine Urine Total Protein Fluid Total Protein Vancomycin Trough Rheumatoid Factor Complement C4 Miscellaneous Test Crossmatch 10/04/16 10/04/16 10/04/16 06:30 11:45 17:54 WBC RBC Hgb Hct MCV MCH MCHC RDW Plt Count Lymph % (Auto) [place] % (Auto) Lymph # [place] # Baso # Seg Neutrophils % Seg Neuts % (Manual) Lymphocytes % (Manual) Monocytes % (Manual) Eosinophils % (Manual) Basophils % (Manual) Nucleated RBC % Seg Neutrophils # Seg Neutrophils # Man Lymphocytes # (Manual) Monocytes # (Manual) Eosinophils # (Manual) Basophils # (Manual) PT INR Fibrinogen dRVVT Confirm Interp Factor V Activity POC ABG pH POC ABG pCO2 POC ABG pO2 ABG pO2 ABG HCO3 ABG Base Excess ABG Hemoglobin Oxyhemoglobin Sodium 128 L Potassium Chloride 87.4 L Carbon Dioxide 20 L BUN 34 H Creatinine 2.9 H Glucose 127 H POC Glucose 158 H 160 H Lactic Acid Calcium 7.4 L Ionized Calcium Phosphorus Magnesium Direct Bilirubin AST ALT Alkaline Phosphatase Lactate Dehydrogenase Troponin T C-Reactive Protein Total Protein Albumin Prealbumin Triglycerides Cholesterol LDL Cholesterol Direct HDL Cholesterol 25-OH Vitamin D Total PTH Intact Urine pH Urine WBC (Auto) Urine Creatinine Urine Total Protein Fluid Total Protein Vancomycin Trough Rheumatoid Factor Complement C4 Miscellaneous Test Crossmatch 08/10/05/16 10/05/16 23:25 04:30 05:00 WBC RBC 2.64 L Hgb 7.5 L Hct 22.6 L MCV MCH MCHC RDW 19.3 H Plt Count 80 L Lymph % (Auto) [place] % (Auto) Lymph # [place] # Baso # Seg Neutrophils % Seg Neuts % (Manual) Lymphocytes % (Manual) 12.0 L Monocytes % (Manual) Eosinophils % (Manual) Basophils % (Manual) Nucleated RBC % Seg Neutrophils # Seg Neutrophils # Man Lymphocytes # (Manual) Monocytes # (Manual) Eosinophils # (Manual) Basophils # (Manual) PT INR Fibrinogen dRVVT Confirm Interp Factor V Activity POC ABG pH 7.475 H POC ABG pCO2 33.3 L POC ABG pO2 140 H ABG pO2 ABG HCO3 ABG Base Excess ABG Hemoglobin Oxyhemoglobin Sodium Potassium Chloride Carbon Dioxide BUN Creatinine Glucose POC Glucose 141 H Lactic Acid Calcium Ionized Calcium Phosphorus Magnesium Direct Bilirubin AST ALT Alkaline Phosphatase Lactate Dehydrogenase Troponin T C-Reactive Protein Total Protein Albumin Prealbumin Triglycerides Cholesterol LDL Cholesterol Direct HDL Cholesterol 25-OH Vitamin D Total PTH Intact Urine pH Urine WBC (Auto) Urine Creatinine Urine Total Protein Fluid Total Protein Vancomycin Trough Rheumatoid Factor Complement C4 Miscellaneous Test Crossmatch 10/05/16 10/05/16 10/05/16 05:00 05:09 12:58 WBC RBC Hgb Hct MCV MCH MCHC RDW Plt Count Lymph % (Auto) [place] % (Auto) Lymph # [place] # Baso # Seg Neutrophils % Seg Neuts % (Manual) Lymphocytes % (Manual) Monocytes % (Manual) Eosinophils % (Manual) Basophils % (Manual) Nucleated RBC % Seg Neutrophils # Seg Neutrophils # Man Lymphocytes # (Manual) Monocytes # (Manual) Eosinophils # (Manual) Basophils # (Manual) PT INR Fibrinogen dRVVT Confirm Interp Factor V Activity POC ABG pH POC ABG pCO2 POC ABG pO2 ABG pO2 ABG HCO3 ABG Base Excess ABG Hemoglobin Oxyhemoglobin Sodium 131 L Potassium Chloride 94.0 L Carbon Dioxide 20 L BUN 22 H Creatinine 2.0 H Glucose 123 H POC Glucose 166 H 179 H Lactic Acid Calcium 7.7 L Ionized Calcium Phosphorus 2.20 L D Magnesium Direct Bilirubin AST ALT Alkaline Phosphatase Lactate Dehydrogenase Troponin T C-Reactive Protein Total Protein Albumin Prealbumin Triglycerides Cholesterol LDL Cholesterol Direct HDL Cholesterol 25-OH Vitamin D Total PTH Intact Urine pH Urine WBC (Auto) Urine Creatinine Urine Total Protein Fluid Total Protein Vancomycin Trough Rheumatoid Factor Complement C4 Miscellaneous Test Crossmatch 10/05/16 10/05/16 10/05/16 15:50 18:53 23:12 WBC RBC Hgb Hct MCV MCH MCHC RDW Plt Count Lymph % (Auto) [place] % (Auto) Lymph # [place] # Baso # Seg Neutrophils % Seg Neuts % (Manual) Lymphocytes % (Manual) Monocytes % (Manual) Eosinophils % (Manual) Basophils % (Manual) Nucleated RBC % Seg Neutrophils # Seg Neutrophils # Man Lymphocytes # (Manual) Monocytes # (Manual) Eosinophils # (Manual) Basophils # (Manual) PT INR Fibrinogen dRVVT Confirm Interp Factor V Activity POC ABG pH POC ABG pCO2 POC ABG pO2 ABG pO2 ABG HCO3 ABG Base Excess ABG Hemoglobin Oxyhemoglobin Sodium Potassium Chloride Carbon Dioxide BUN Creatinine Glucose POC Glucose 150 H 164 H Lactic Acid Calcium Ionized Calcium Phosphorus Magnesium Direct Bilirubin AST ALT Alkaline Phosphatase Lactate Dehydrogenase Troponin T C-Reactive Protein Total Protein Albumin Prealbumin Triglycerides Cholesterol LDL Cholesterol Direct HDL Cholesterol 25-OH Vitamin D Total PTH Intact Urine pH Urine WBC (Auto) Urine Creatinine Urine Total Protein Fluid Total Protein Vancomycin Trough Rheumatoid Factor Complement C4 Miscellaneous Test Crossmatch See Detail 10/06/16 10/06/16 10/06/16 03:50 03:50 04:53 WBC RBC 3.00 L Hgb 8.6 L Hct 25.8 L MCV MCH MCHC RDW 17.9 H Plt Count 65 L Lymph % (Auto) [place] % (Auto) Lymph # [place] # Baso # Seg Neutrophils % Seg Neuts % (Manual) 30.0 L Lymphocytes % (Manual) 5.0 L Monocytes % (Manual) Eosinophils % (Manual) Basophils % (Manual) Nucleated RBC % Seg Neutrophils # Seg Neutrophils # Man Lymphocytes # (Manual) 0.4 L Monocytes # (Manual) Eosinophils # (Manual) Basophils # (Manual) PT INR Fibrinogen dRVVT Confirm Interp Factor V Activity POC ABG pH 7.310 L POC ABG pCO2 49.0 H POC ABG pO2 ABG pO2 ABG HCO3 ABG Base Excess ABG Hemoglobin Oxyhemoglobin Sodium 133 L Potassium Chloride 95.9 L Carbon Dioxide BUN 26 H Creatinine 2.0 H Glucose 116 H POC Glucose Lactic Acid Calcium 7.8 L Ionized Calcium Phosphorus Magnesium Direct Bilirubin AST ALT Alkaline Phosphatase Lactate Dehydrogenase Troponin T C-Reactive Protein Total Protein Albumin Prealbumin Triglycerides Cholesterol LDL Cholesterol Direct HDL Cholesterol 25-OH Vitamin D Total PTH Intact Urine pH Urine WBC (Auto) Urine Creatinine Urine Total Protein Fluid Total Protein Vancomycin Trough Rheumatoid Factor Complement C4 Miscellaneous Test Crossmatch 10/06/16 10/06/16 10/06/16 05:23 11:52 18:34 WBC RBC Hgb Hct MCV MCH MCHC RDW Plt Count Lymph % (Auto) [place] % (Auto) Lymph # [place] # Baso # Seg Neutrophils % Seg Neuts % (Manual) Lymphocytes % (Manual) Monocytes % (Manual) Eosinophils % (Manual) Basophils % (Manual) Nucleated RBC % Seg Neutrophils # Seg Neutrophils # Man Lymphocytes # (Manual) Monocytes # (Manual) Eosinophils # (Manual) Basophils # (Manual) PT INR Fibrinogen dRVVT Confirm Interp Factor V Activity POC ABG pH POC ABG pCO2 POC ABG pO2 ABG pO2 ABG HCO3 ABG Base Excess ABG Hemoglobin Oxyhemoglobin Sodium Potassium Chloride Carbon Dioxide BUN Creatinine Glucose POC Glucose 126 H 116 H 129 H Lactic Acid Calcium Ionized Calcium Phosphorus Magnesium Direct Bilirubin AST ALT Alkaline Phosphatase Lactate Dehydrogenase Troponin T C-Reactive Protein Total Protein Albumin Prealbumin Triglycerides Cholesterol LDL Cholesterol Direct HDL Cholesterol 25-OH Vitamin D Total PTH Intact Urine pH Urine WBC (Auto) Urine Creatinine Urine Total Protein Fluid Total Protein Vancomycin Trough Rheumatoid Factor Complement C4 Miscellaneous Test Crossmatch 10/07/16 10/07/16 10/07/16 03:45 05:00 10:00 WBC 17.0 H RBC 2.68 L Hgb 7.3 L Hct 25.3 L MCV MCH 27 L MCHC 29 L RDW 19.6 H Plt Count 74 L Lymph % (Auto) [place] % (Auto) Lymph # [place] # Baso # Seg Neutrophils % Seg Neuts % (Manual) Lymphocytes % (Manual) 12.0 L Monocytes % (Manual) Eosinophils % (Manual) Basophils % (Manual) Nucleated RBC % 4.0 H Seg Neutrophils # Seg Neutrophils # Man 10.7 H Lymphocytes # (Manual) Monocytes # (Manual) Eosinophils # (Manual) Basophils # (Manual) PT INR Fibrinogen dRVVT Confirm Interp Factor V Activity POC ABG pH POC ABG pCO2 POC ABG pO2 ABG pO2 ABG HCO3 ABG Base Excess ABG Hemoglobin Oxyhemoglobin Sodium 130 L Potassium 3.2 L Chloride 93.9 L Carbon Dioxide 20 L BUN 44 H Creatinine 2.7 H Glucose 129 H POC Glucose Lactic Acid Calcium 7.4 L Ionized Calcium Phosphorus Magnesium Direct Bilirubin AST ALT 6 L Alkaline Phosphatase 195 H Lactate Dehydrogenase Troponin T C-Reactive Protein Total Protein 4.9 L Albumin 1.0 L Prealbumin Triglycerides Cholesterol LDL Cholesterol Direct HDL Cholesterol 25-OH Vitamin D Total PTH Intact Urine pH Urine WBC (Auto) Urine Creatinine Urine Total Protein Fluid Total Protein Vancomycin Trough Rheumatoid Factor Complement C4 Miscellaneous Test Flexitest 1 H Crossmatch 10/07/16 10/07/16 10/07/16 10:00 11:24 18:10 WBC RBC Hgb Hct MCV MCH MCHC RDW Plt Count Lymph % (Auto) [place] % (Auto) Lymph # [place] # Baso # Seg Neutrophils % Seg Neuts % (Manual) Lymphocytes % (Manual) Monocytes % (Manual) Eosinophils % (Manual) Basophils % (Manual) Nucleated RBC % Seg Neutrophils # Seg Neutrophils # Man Lymphocytes # (Manual) Monocytes # (Manual) Eosinophils # (Manual) Basophils # (Manual) PT INR Fibrinogen dRVVT Confirm Interp Factor V Activity POC ABG pH POC ABG pCO2 POC ABG pO2 ABG pO2 ABG HCO3 ABG Base Excess ABG Hemoglobin Oxyhemoglobin Sodium Potassium Chloride Carbon Dioxide BUN Creatinine Glucose POC Glucose 116 H 130 H Lactic Acid Calcium Ionized Calcium Phosphorus Magnesium Direct Bilirubin AST ALT Alkaline Phosphatase Lactate Dehydrogenase Troponin T C-Reactive Protein 19.40 H Total Protein Albumin Prealbumin Triglycerides Cholesterol LDL Cholesterol Direct HDL Cholesterol 25-OH Vitamin D Total PTH Intact Urine pH Urine WBC (Auto) Urine Creatinine Urine Total Protein Fluid Total Protein Vancomycin Trough Rheumatoid Factor Complement C4 Miscellaneous Test Crossmatch 10/07/16 10/08/16 10/08/16 18:30 00:00 04:00 WBC RBC Hgb Hct MCV MCH MCHC RDW Plt Count Lymph % (Auto) [place] % (Auto) Lymph # [place] # Baso # Seg Neutrophils % Seg Neuts % (Manual) Lymphocytes % (Manual) Monocytes % (Manual) Eosinophils % (Manual) Basophils % (Manual) Nucleated RBC % Seg Neutrophils # Seg Neutrophils # Man Lymphocytes # (Manual) Monocytes # (Manual) Eosinophils # (Manual) Basophils # (Manual) PT INR Fibrinogen dRVVT Confirm Interp Factor V Activity POC ABG pH POC ABG pCO2 POC ABG pO2 ABG pO2 ABG HCO3 ABG Base Excess ABG Hemoglobin Oxyhemoglobin Sodium 132 L Potassium 3.3 L Chloride 93.6 L Carbon Dioxide 17 L BUN 59 H Creatinine 2.7 H Glucose 121 H POC Glucose 122 H Lactic Acid Calcium 7.6 L Ionized Calcium Phosphorus Magnesium Direct Bilirubin AST ALT Alkaline Phosphatase Lactate Dehydrogenase Troponin T C-Reactive Protein Total Protein Albumin Prealbumin Triglycerides Cholesterol LDL Cholesterol Direct HDL Cholesterol 25-OH Vitamin D Total PTH Intact Urine pH Urine WBC (Auto) > 182.0 H Urine Creatinine Urine Total Protein Fluid Total Protein Vancomycin Trough Rheumatoid Factor Complement C4 Miscellaneous Test Crossmatch 10/08/16 10/08/16 10/08/16 04:30 05:30 11:51 WBC RBC 5.15 H Hgb 14.4 H D Hct 44.5 H D MCV MCH MCHC RDW 19.5 H Plt Count 56 L Lymph % (Auto) [place] % (Auto) Lymph # [place] # Baso # Seg Neutrophils % Seg Neuts % (Manual) 24.0 L Lymphocytes % (Manual) 8.0 L Monocytes % (Manual) Eosinophils % (Manual) Basophils % (Manual) Nucleated RBC % 9.0 H Seg Neutrophils # Seg Neutrophils # Man Lymphocytes # (Manual) 0.7 L Monocytes # (Manual) Eosinophils # (Manual) Basophils # (Manual) PT INR Fibrinogen dRVVT Confirm Interp Factor V Activity POC ABG pH POC ABG pCO2 POC ABG pO2 ABG pO2 ABG HCO3 ABG Base Excess ABG Hemoglobin Oxyhemoglobin Sodium Potassium Chloride Carbon Dioxide BUN Creatinine Glucose POC Glucose 125 H 150 H Lactic Acid Calcium Ionized Calcium Phosphorus Magnesium Direct Bilirubin AST ALT Alkaline Phosphatase Lactate Dehydrogenase Troponin T C-Reactive Protein Total Protein Albumin Prealbumin Triglycerides Cholesterol LDL Cholesterol Direct HDL Cholesterol 25-OH Vitamin D Total PTH Intact Urine pH Urine WBC (Auto) Urine Creatinine Urine Total Protein Fluid Total Protein Vancomycin Trough Rheumatoid Factor Complement C4 Miscellaneous Test Crossmatch 10/08/16 10/08/16 10/08/16 12:49 17:07 19:30 WBC RBC Hgb 7.1 L D Hct 22.4 L D MCV MCH MCHC RDW Plt Count Lymph % (Auto) [place] % (Auto) Lymph # [place] # Baso # Seg Neutrophils % Seg Neuts % (Manual) Lymphocytes % (Manual) Monocytes % (Manual) Eosinophils % (Manual) Basophils % (Manual) Nucleated RBC % Seg Neutrophils # Seg Neutrophils # Man Lymphocytes # (Manual) Monocytes # (Manual) Eosinophils # (Manual) Basophils # (Manual) PT INR Fibrinogen dRVVT Confirm Interp Factor V Activity POC ABG pH POC ABG pCO2 28.2 L POC ABG pO2 111 H ABG pO2 ABG HCO3 ABG Base Excess ABG Hemoglobin Oxyhemoglobin Sodium Potassium Chloride Carbon Dioxide BUN Creatinine Glucose POC Glucose 145 H Lactic Acid Calcium Ionized Calcium Phosphorus Magnesium Direct Bilirubin AST ALT Alkaline Phosphatase Lactate Dehydrogenase Troponin T C-Reactive Protein Total Protein Albumin Prealbumin Triglycerides Cholesterol LDL Cholesterol Direct HDL Cholesterol 25-OH Vitamin D Total PTH Intact Urine pH Urine WBC (Auto) Urine Creatinine Urine Total Protein Fluid Total Protein Vancomycin Trough Rheumatoid Factor Complement C4 Miscellaneous Test Crossmatch 10/08/16 10/09/16 10/09/16 19:30 03:45 03:45 WBC 12.6 H RBC 2.36 L Hgb 6.7 L Hct 21.1 L MCV MCH MCHC RDW 19.5 H Plt Count 75 L Lymph % (Auto) [place] % (Auto) Lymph # [place] # Baso # Seg Neutrophils % Seg Neuts % (Manual) Lymphocytes % (Manual) Monocytes % (Manual) 10.0 H Eosinophils % (Manual) Basophils % (Manual) Nucleated RBC % 3.0 H Seg Neutrophils # Seg Neutrophils # Man Lymphocytes # (Manual) Monocytes # (Manual) 1.3 H Eosinophils # (Manual) Basophils # (Manual) PT 18.0 H INR 1.41 H Fibrinogen dRVVT Confirm Interp Factor V Activity POC ABG pH POC ABG pCO2 POC ABG pO2 ABG pO2 ABG HCO3 ABG Base Excess ABG Hemoglobin Oxyhemoglobin Sodium 135 L Potassium Chloride Carbon Dioxide 17 L BUN 81 H Creatinine 3.2 H Glucose 109 H POC Glucose Lactic Acid Calcium 7.4 L Ionized Calcium Phosphorus 4.60 H D Magnesium Direct Bilirubin AST ALT Alkaline Phosphatase Lactate Dehydrogenase Troponin T C-Reactive Protein Total Protein Albumin Prealbumin Triglycerides Cholesterol LDL Cholesterol Direct HDL Cholesterol 25-OH Vitamin D Total PTH Intact Urine pH Urine WBC (Auto) Urine Creatinine Urine Total Protein Fluid Total Protein Vancomycin Trough Rheumatoid Factor Complement C4 Miscellaneous Test Crossmatch 10/09/16 10/09/16 10/09/16 03:45 05:14 07:20 WBC RBC Hgb Hct MCV MCH MCHC RDW Plt Count Lymph % (Auto) [place] % (Auto) Lymph # [place] # Baso # Seg Neutrophils % Seg Neuts % (Manual) Lymphocytes % (Manual) Monocytes % (Manual) Eosinophils % (Manual) Basophils % (Manual) Nucleated RBC % Seg Neutrophils # Seg Neutrophils # Man Lymphocytes # (Manual) Monocytes # (Manual) Eosinophils # (Manual) Basophils # (Manual) PT 19.0 H INR 1.51 H Fibrinogen dRVVT Confirm Interp Factor V Activity POC ABG pH POC ABG pCO2 POC ABG pO2 ABG pO2 ABG HCO3 ABG Base Excess ABG Hemoglobin Oxyhemoglobin Sodium Potassium Chloride Carbon Dioxide BUN Creatinine Glucose POC Glucose 151 H Lactic Acid Calcium Ionized Calcium Phosphorus Magnesium Direct Bilirubin AST ALT Alkaline Phosphatase Lactate Dehydrogenase Troponin T C-Reactive Protein Total Protein Albumin Prealbumin Triglycerides Cholesterol LDL Cholesterol Direct HDL Cholesterol 25-OH Vitamin D Total PTH Intact Urine pH Urine WBC (Auto) Urine Creatinine Urine Total Protein Fluid Total Protein Vancomycin Trough Rheumatoid Factor Complement C4 Miscellaneous Test Crossmatch See Detail 10/09/16 10/09/16 10/09/16 11:46 16:20 16:43 WBC RBC Hgb 7.2 L Hct 22.2 L MCV MCH MCHC RDW Plt Count Lymph % (Auto) [place] % (Auto) Lymph # [place] # Baso # Seg Neutrophils % Seg Neuts % (Manual) Lymphocytes % (Manual) Monocytes % (Manual) Eosinophils % (Manual) Basophils % (Manual) Nucleated RBC % Seg Neutrophils # Seg Neutrophils # Man Lymphocytes # (Manual) Monocytes # (Manual) Eosinophils # (Manual) Basophils # (Manual) PT INR Fibrinogen dRVVT Confirm Interp Factor V Activity POC ABG pH POC ABG pCO2 POC ABG pO2 ABG pO2 ABG HCO3 ABG Base Excess ABG Hemoglobin Oxyhemoglobin Sodium Potassium Chloride Carbon Dioxide BUN Creatinine Glucose POC Glucose 133 H 141 H Lactic Acid Calcium Ionized Calcium Phosphorus Magnesium Direct Bilirubin AST ALT Alkaline Phosphatase Lactate Dehydrogenase Troponin T C-Reactive Protein Total Protein Albumin Prealbumin Triglycerides Cholesterol LDL Cholesterol Direct HDL Cholesterol 25-OH Vitamin D Total PTH Intact Urine pH Urine WBC (Auto) Urine Creatinine Urine Total Protein Fluid Total Protein Vancomycin Trough Rheumatoid Factor Complement C4 Miscellaneous Test Crossmatch 10/10/16 10/10/16 10/10/16 05:00 05:00 11:19 WBC 18.5 H RBC 2.19 L Hgb 6.4 L Hct 19.6 L* MCV MCH MCHC RDW 19.3 H Plt Count 93 L Lymph % (Auto) [place] % (Auto) Lymph # [place] # Baso # Seg Neutrophils % Seg Neuts % (Manual) Lymphocytes % (Manual) 10.0 L Monocytes % (Manual) Eosinophils % (Manual) Basophils % (Manual) Nucleated RBC % 4.0 H Seg Neutrophils # Seg Neutrophils # Man 11.3 H Lymphocytes # (Manual) Monocytes # (Manual) Eosinophils # (Manual) Basophils # (Manual) PT INR Fibrinogen dRVVT Confirm Interp Factor V Activity POC ABG pH POC ABG pCO2 POC ABG pO2 ABG pO2 ABG HCO3 ABG Base Excess ABG Hemoglobin Oxyhemoglobin Sodium Potassium 5.7 H D Chloride Carbon Dioxide 16 L BUN 94 H Creatinine 3.1 H Glucose 131 H POC Glucose 153 H Lactic Acid Calcium 8.2 L Ionized Calcium Phosphorus 5.10 H Magnesium 2.40 H Direct Bilirubin 0.3 H AST ALT < 5 L Alkaline Phosphatase 319 H Lactate Dehydrogenase Troponin T C-Reactive Protein Total Protein 5.1 L Albumin 1.0 L Prealbumin Triglycerides Cholesterol LDL Cholesterol Direct HDL Cholesterol 25-OH Vitamin D Total PTH Intact Urine pH Urine WBC (Auto) Urine Creatinine Urine Total Protein Fluid Total Protein Vancomycin Trough Rheumatoid Factor Complement C4 Miscellaneous Test Crossmatch 10/10/16 10/10/16 10/11/16 17:50 23:30 04:15 WBC RBC Hgb Hct MCV MCH MCHC RDW Plt Count Lymph % (Auto) [place] % (Auto) Lymph # [place] # Baso # Seg Neutrophils % Seg Neuts % (Manual) Lymphocytes % (Manual) Monocytes % (Manual) Eosinophils % (Manual) Basophils % (Manual) Nucleated RBC % Seg Neutrophils # Seg Neutrophils # Man Lymphocytes # (Manual) Monocytes # (Manual) Eosinophils # (Manual) Basophils # (Manual) PT INR Fibrinogen dRVVT Confirm Interp Factor V Activity POC ABG pH POC ABG pCO2 POC ABG pO2 ABG pO2 ABG HCO3 ABG Base Excess ABG Hemoglobin Oxyhemoglobin Sodium Potassium Chloride 96.4 L Carbon Dioxide 21 L BUN 57 H Creatinine 2.1 H Glucose 151 H POC Glucose 146 H 141 H Lactic Acid Calcium 8.3 L Ionized Calcium Phosphorus Magnesium Direct Bilirubin AST ALT Alkaline Phosphatase Lactate Dehydrogenase Troponin T C-Reactive Protein Total Protein Albumin Prealbumin Triglycerides Cholesterol LDL Cholesterol Direct HDL Cholesterol 25-OH Vitamin D Total PTH Intact Urine pH Urine WBC (Auto) Urine Creatinine Urine Total Protein Fluid Total Protein Vancomycin Trough Rheumatoid Factor Complement C4 Miscellaneous Test Crossmatch 10/11/16 10/11/16 10/11/16 04:15 04:15 05:30 WBC 28.3 H RBC 3.12 L Hgb 9.3 L Hct 28.7 L D MCV MCH MCHC RDW 17.7 H Plt Count 128 L Lymph % (Auto) [place] % (Auto) Lymph # [place] # Baso # Seg Neutrophils % Seg Neuts % (Manual) Lymphocytes % (Manual) Monocytes % (Manual) Eosinophils % (Manual) Basophils % (Manual) Nucleated RBC % Seg Neutrophils # Seg Neutrophils # Man Lymphocytes # (Manual) Monocytes # (Manual) Eosinophils # (Manual) Basophils # (Manual) PT INR Fibrinogen dRVVT Confirm Interp Factor V Activity POC ABG pH POC ABG pCO2 POC ABG pO2 ABG pO2 ABG HCO3 ABG Base Excess ABG Hemoglobin Oxyhemoglobin Sodium Potassium Chloride Carbon Dioxide BUN Creatinine Glucose POC Glucose 167 H Lactic Acid Calcium Ionized Calcium Phosphorus Magnesium Direct Bilirubin AST ALT Alkaline Phosphatase Lactate Dehydrogenase Troponin T C-Reactive Protein 15.80 H Total Protein Albumin Prealbumin Triglycerides Cholesterol LDL Cholesterol Direct HDL Cholesterol 25-OH Vitamin D Total PTH Intact Urine pH Urine WBC (Auto) Urine Creatinine Urine Total Protein Fluid Total Protein Vancomycin Trough Rheumatoid Factor Complement C4 Miscellaneous Test Crossmatch 10/11/16 10/11/16 10/11/16 11:40 15:49 23:57 WBC RBC Hgb Hct MCV MCH MCHC RDW Plt Count Lymph % (Auto) [place] % (Auto) Lymph # [place] # Baso # Seg Neutrophils % Seg Neuts % (Manual) Lymphocytes % (Manual) Monocytes % (Manual) Eosinophils % (Manual) Basophils % (Manual) Nucleated RBC % Seg Neutrophils # Seg Neutrophils # Man Lymphocytes # (Manual) Monocytes # (Manual) Eosinophils # (Manual) Basophils # (Manual) PT INR Fibrinogen dRVVT Confirm Interp Factor V Activity POC ABG pH POC ABG pCO2 POC ABG pO2 ABG pO2 ABG HCO3 ABG Base Excess ABG Hemoglobin Oxyhemoglobin Sodium Potassium Chloride Carbon Dioxide BUN Creatinine Glucose POC Glucose 139 H 168 H 161 H Lactic Acid Calcium Ionized Calcium Phosphorus Magnesium Direct Bilirubin AST ALT Alkaline Phosphatase Lactate Dehydrogenase Troponin T C-Reactive Protein Total Protein Albumin Prealbumin Triglycerides Cholesterol LDL Cholesterol Direct HDL Cholesterol 25-OH Vitamin D Total PTH Intact Urine pH Urine WBC (Auto) Urine Creatinine Urine Total Protein Fluid Total Protein Vancomycin Trough Rheumatoid Factor Complement C4 Miscellaneous Test Crossmatch 10/12/16 10/12/16 10/12/16 04:40 04:40 05:44 WBC 22.5 H RBC 2.88 L Hgb 8.8 L Hct 26.8 L MCV MCH MCHC RDW 17.8 H Plt Count Lymph % (Auto) [place] % (Auto) Lymph # [place] # Baso # Seg Neutrophils % Seg Neuts % (Manual) Lymphocytes % (Manual) Monocytes % (Manual) Eosinophils % (Manual) Basophils % (Manual) Nucleated RBC % Seg Neutrophils # Seg Neutrophils # Man Lymphocytes # (Manual) Monocytes # (Manual) Eosinophils # (Manual) Basophils # (Manual) PT INR Fibrinogen dRVVT Confirm Interp Factor V Activity POC ABG pH POC ABG pCO2 POC ABG pO2 ABG pO2 ABG HCO3 ABG Base Excess ABG Hemoglobin Oxyhemoglobin Sodium 134 L Potassium Chloride 93.0 L Carbon Dioxide BUN 74 H Creatinine 2.5 H Glucose 137 H POC Glucose 158 H Lactic Acid Calcium 8.2 L Ionized Calcium Phosphorus Magnesium Direct Bilirubin AST ALT Alkaline Phosphatase Lactate Dehydrogenase Troponin T C-Reactive Protein Total Protein Albumin Prealbumin Triglycerides Cholesterol LDL Cholesterol Direct HDL Cholesterol 25-OH Vitamin D Total PTH Intact Urine pH Urine WBC (Auto) Urine Creatinine Urine Total Protein Fluid Total Protein Vancomycin Trough Rheumatoid Factor Complement C4 Miscellaneous Test Crossmatch 10/12/16 10/12/16 10/12/16 12:27 18:18 23:46 WBC RBC Hgb Hct MCV MCH MCHC RDW Plt Count Lymph % (Auto) [place] % (Auto) Lymph # [place] # Baso # Seg Neutrophils % Seg Neuts % (Manual) Lymphocytes % (Manual) Monocytes % (Manual) Eosinophils % (Manual) Basophils % (Manual) Nucleated RBC % Seg Neutrophils # Seg Neutrophils # Man Lymphocytes # (Manual) Monocytes # (Manual) Eosinophils # (Manual) Basophils # (Manual) PT INR Fibrinogen dRVVT Confirm Interp Factor V Activity POC ABG pH POC ABG pCO2 POC ABG pO2 ABG pO2 ABG HCO3 ABG Base Excess ABG Hemoglobin Oxyhemoglobin Sodium Potassium Chloride Carbon Dioxide BUN Creatinine Glucose POC Glucose 153 H 140 H 150 H Lactic Acid Calcium Ionized Calcium Phosphorus Magnesium Direct Bilirubin AST ALT Alkaline Phosphatase Lactate Dehydrogenase Troponin T C-Reactive Protein Total Protein Albumin Prealbumin Triglycerides Cholesterol LDL Cholesterol Direct HDL Cholesterol 25-OH Vitamin D Total PTH Intact Urine pH Urine WBC (Auto) Urine Creatinine Urine Total Protein Fluid Total Protein Vancomycin Trough Rheumatoid Factor Complement C4 Miscellaneous Test Crossmatch 10/13/16 10/13/16 10/13/16 06:22 09:20 12:29 WBC RBC Hgb Hct MCV MCH MCHC RDW Plt Count Lymph % (Auto) [place] % (Auto) Lymph # [place] # Baso # Seg Neutrophils % Seg Neuts % (Manual) Lymphocytes % (Manual) Monocytes % (Manual) Eosinophils % (Manual) Basophils % (Manual) Nucleated RBC % Seg Neutrophils # Seg Neutrophils # Man Lymphocytes # (Manual) Monocytes # (Manual) Eosinophils # (Manual) Basophils # (Manual) PT INR Fibrinogen dRVVT Confirm Interp Factor V Activity POC ABG pH POC ABG pCO2 POC ABG pO2 ABG pO2 ABG HCO3 ABG Base Excess ABG Hemoglobin Oxyhemoglobin Sodium Potassium Chloride Carbon Dioxide BUN Creatinine Glucose POC Glucose 165 H 193 H Lactic Acid Calcium Ionized Calcium Phosphorus Magnesium Direct Bilirubin AST ALT Alkaline Phosphatase Lactate Dehydrogenase Troponin T C-Reactive Protein Total Protein Albumin Prealbumin Triglycerides Cholesterol LDL Cholesterol Direct HDL Cholesterol 25-OH Vitamin D Total PTH Intact Urine pH Urine WBC (Auto) Urine Creatinine Urine Total Protein Fluid Total Protein Vancomycin Trough Rheumatoid Factor Complement C4 Miscellaneous Test Flexitest 1 H Crossmatch 10/13/16 10/13/16 10/13/16 18:09 Unknown Unknown WBC 23.4 H RBC 2.83 L Hgb 8.7 L Hct 26.1 L MCV MCH MCHC RDW 18.1 H Plt Count Lymph % (Auto) [place] % (Auto) Lymph # [place] # Baso # Seg Neutrophils % Seg Neuts % (Manual) Lymphocytes % (Manual) Monocytes % (Manual) Eosinophils % (Manual) Basophils % (Manual) Nucleated RBC % Seg Neutrophils # Seg Neutrophils # Man Lymphocytes # (Manual) Monocytes # (Manual) Eosinophils # (Manual) Basophils # (Manual) PT INR Fibrinogen dRVVT Confirm Interp Factor V Activity POC ABG pH POC ABG pCO2 POC ABG pO2 ABG pO2 ABG HCO3 ABG Base Excess ABG Hemoglobin Oxyhemoglobin Sodium Potassium Chloride 95.8 L Carbon Dioxide BUN 82 H Creatinine 2.6 H Glucose 152 H POC Glucose 166 H Lactic Acid Calcium Ionized Calcium Phosphorus Magnesium Direct Bilirubin AST ALT Alkaline Phosphatase Lactate Dehydrogenase Troponin T C-Reactive Protein Total Protein Albumin Prealbumin Triglycerides Cholesterol LDL Cholesterol Direct HDL Cholesterol 25-OH Vitamin D Total PTH Intact Urine pH Urine WBC (Auto) Urine Creatinine Urine Total Protein Fluid Total Protein Vancomycin Trough Rheumatoid Factor Complement C4 Miscellaneous Test Crossmatch 10/14/16 10/14/16 10/14/16 05:38 06:35 08:10 WBC 20.7 H RBC 2.81 L Hgb 8.4 L Hct 27.2 L MCV MCH MCHC RDW 19.4 H Plt Count Lymph % (Auto) [place] % (Auto) Lymph # [place] # Baso # Seg Neutrophils % Seg Neuts % (Manual) Lymphocytes % (Manual) Monocytes % (Manual) Eosinophils % (Manual) Basophils % (Manual) Nucleated RBC % Seg Neutrophils # Seg Neutrophils # Man Lymphocytes # (Manual) Monocytes # (Manual) Eosinophils # (Manual) Basophils # (Manual) PT INR Fibrinogen dRVVT Confirm Interp Factor V Activity POC ABG pH POC ABG pCO2 POC ABG pO2 ABG pO2 ABG HCO3 ABG Base Excess ABG Hemoglobin Oxyhemoglobin Sodium Potassium Chloride Carbon Dioxide BUN 58 H Creatinine 1.9 H Glucose 169 H POC Glucose 195 H Lactic Acid Calcium Ionized Calcium Phosphorus Magnesium Direct Bilirubin AST ALT Alkaline Phosphatase Lactate Dehydrogenase Troponin T C-Reactive Protein Total Protein Albumin Prealbumin Triglycerides Cholesterol LDL Cholesterol Direct HDL Cholesterol 25-OH Vitamin D Total PTH Intact Urine pH Urine WBC (Auto) Urine Creatinine Urine Total Protein Fluid Total Protein Vancomycin Trough Rheumatoid Factor Complement C4 Miscellaneous Test Crossmatch 10/14/16 10/14/16 10/14/16 11:44 17:13 23:28 WBC RBC Hgb Hct MCV MCH MCHC RDW Plt Count Lymph % (Auto) [place] % (Auto) Lymph # [place] # Baso # Seg Neutrophils % Seg Neuts % (Manual) Lymphocytes % (Manual) Monocytes % (Manual) Eosinophils % (Manual) Basophils % (Manual) Nucleated RBC % Seg Neutrophils # Seg Neutrophils # Man Lymphocytes # (Manual) Monocytes # (Manual) Eosinophils # (Manual) Basophils # (Manual) PT INR Fibrinogen dRVVT Confirm Interp Factor V Activity POC ABG pH POC ABG pCO2 POC ABG pO2 ABG pO2 ABG HCO3 ABG Base Excess ABG Hemoglobin Oxyhemoglobin Sodium Potassium Chloride Carbon Dioxide BUN Creatinine Glucose POC Glucose 174 H 121 H 151 H Lactic Acid Calcium Ionized Calcium Phosphorus Magnesium Direct Bilirubin AST ALT Alkaline Phosphatase Lactate Dehydrogenase Troponin T C-Reactive Protein Total Protein Albumin Prealbumin Triglycerides Cholesterol LDL Cholesterol Direct HDL Cholesterol 25-OH Vitamin D Total PTH Intact Urine pH Urine WBC (Auto) Urine Creatinine Urine Total Protein Fluid Total Protein Vancomycin Trough Rheumatoid Factor Complement C4 Miscellaneous Test Crossmatch 10/15/16 10/15/16 10/15/16 05:06 12:26 17:48 WBC RBC Hgb Hct MCV MCH MCHC RDW Plt Count Lymph % (Auto) [place] % (Auto) Lymph # [place] # Baso # Seg Neutrophils % Seg Neuts % (Manual) Lymphocytes % (Manual) Monocytes % (Manual) Eosinophils % (Manual) Basophils % (Manual) Nucleated RBC % Seg Neutrophils # Seg Neutrophils # Man Lymphocytes # (Manual) Monocytes # (Manual) Eosinophils # (Manual) Basophils # (Manual) PT INR Fibrinogen dRVVT Confirm Interp Factor V Activity POC ABG pH POC ABG pCO2 POC ABG pO2 ABG pO2 ABG HCO3 ABG Base Excess ABG Hemoglobin Oxyhemoglobin Sodium Potassium Chloride Carbon Dioxide BUN Creatinine Glucose POC Glucose 151 H 149 H 153 H Lactic Acid Calcium Ionized Calcium Phosphorus Magnesium Direct Bilirubin AST ALT Alkaline Phosphatase Lactate Dehydrogenase Troponin T C-Reactive Protein Total Protein Albumin Prealbumin Triglycerides Cholesterol LDL Cholesterol Direct HDL Cholesterol 25-OH Vitamin D Total PTH Intact Urine pH Urine WBC (Auto) Urine Creatinine Urine Total Protein Fluid Total Protein Vancomycin Trough Rheumatoid Factor Complement C4 Miscellaneous Test Crossmatch 10/15/16 10/15/16 10/16/16 Unknown Unknown 00:02 WBC 23.4 H RBC 2.78 L Hgb 8.5 L Hct 25.7 L MCV MCH MCHC RDW 18.7 H Plt Count Lymph % (Auto) [place] % (Auto) Lymph # [place] # Baso # Seg Neutrophils % Seg Neuts % (Manual) Lymphocytes % (Manual) Monocytes % (Manual) Eosinophils % (Manual) Basophils % (Manual) Nucleated RBC % Seg Neutrophils # Seg Neutrophils # Man Lymphocytes # (Manual) Monocytes # (Manual) Eosinophils # (Manual) Basophils # (Manual) PT INR Fibrinogen dRVVT Confirm Interp Factor V Activity POC ABG pH POC ABG pCO2 POC ABG pO2 ABG pO2 ABG HCO3 ABG Base Excess ABG Hemoglobin Oxyhemoglobin Sodium Potassium Chloride Carbon Dioxide BUN 73 H Creatinine 2.3 H Glucose 120 H POC Glucose 137 H Lactic Acid Calcium Ionized Calcium Phosphorus Magnesium Direct Bilirubin AST ALT Alkaline Phosphatase Lactate Dehydrogenase Troponin T C-Reactive Protein Total Protein Albumin Prealbumin Triglycerides Cholesterol LDL Cholesterol Direct HDL Cholesterol 25-OH Vitamin D Total PTH Intact Urine pH Urine WBC (Auto) Urine Creatinine Urine Total Protein Fluid Total Protein Vancomycin Trough Rheumatoid Factor Complement C4 Miscellaneous Test Crossmatch 10/16/16 10/16/16 10/16/16 05:44 06:25 06:25 WBC 22.5 H RBC 2.76 L Hgb 8.3 L Hct 25.2 L MCV MCH MCHC RDW 18.3 H Plt Count Lymph % (Auto) [place] % (Auto) Lymph # [place] # Baso # Seg Neutrophils % Seg Neuts % (Manual) Lymphocytes % (Manual) Monocytes % (Manual) Eosinophils % (Manual) Basophils % (Manual) Nucleated RBC % Seg Neutrophils # Seg Neutrophils # Man Lymphocytes # (Manual) Monocytes # (Manual) Eosinophils # (Manual) Basophils # (Manual) PT INR Fibrinogen dRVVT Confirm Interp Factor V Activity POC ABG pH POC ABG pCO2 POC ABG pO2 ABG pO2 ABG HCO3 ABG Base Excess ABG Hemoglobin Oxyhemoglobin Sodium Potassium Chloride Carbon Dioxide BUN 92 H Creatinine 3.0 H Glucose 138 H POC Glucose 110 H Lactic Acid Calcium Ionized Calcium Phosphorus Magnesium Direct Bilirubin AST ALT Alkaline Phosphatase Lactate Dehydrogenase Troponin T C-Reactive Protein Total Protein Albumin Prealbumin Triglycerides Cholesterol LDL Cholesterol Direct HDL Cholesterol 25-OH Vitamin D Total PTH Intact Urine pH Urine WBC (Auto) Urine Creatinine Urine Total Protein Fluid Total Protein Vancomycin Trough Rheumatoid Factor Complement C4 Miscellaneous Test Crossmatch 10/16/16 10/16/16 10/16/16 11:27 11:48 17:36 WBC RBC Hgb Hct MCV MCH MCHC RDW Plt Count Lymph % (Auto) [place] % (Auto) Lymph # [place] # Baso # Seg Neutrophils % Seg Neuts % (Manual) Lymphocytes % (Manual) Monocytes % (Manual) Eosinophils % (Manual) Basophils % (Manual) Nucleated RBC % Seg Neutrophils # Seg Neutrophils # Man Lymphocytes # (Manual) Monocytes # (Manual) Eosinophils # (Manual) Basophils # (Manual) PT INR Fibrinogen dRVVT Confirm Interp Factor V Activity POC ABG pH 7.582 H POC ABG pCO2 27.4 L POC ABG pO2 110 H ABG pO2 ABG HCO3 ABG Base Excess ABG Hemoglobin Oxyhemoglobin Sodium Potassium Chloride Carbon Dioxide BUN Creatinine Glucose POC Glucose 121 H 133 H Lactic Acid Calcium Ionized Calcium Phosphorus Magnesium Direct Bilirubin AST ALT Alkaline Phosphatase Lactate Dehydrogenase Troponin T C-Reactive Protein Total Protein Albumin Prealbumin Triglycerides Cholesterol LDL Cholesterol Direct HDL Cholesterol 25-OH Vitamin D Total PTH Intact Urine pH Urine WBC (Auto) Urine Creatinine Urine Total Protein Fluid Total Protein Vancomycin Trough Rheumatoid Factor Complement C4 Miscellaneous Test Crossmatch 10/16/16 10/17/16 10/17/16 20:48 04:24 04:24 WBC 21.4 H RBC 2.72 L Hgb 8.0 L Hct 25.2 L MCV MCH MCHC RDW 18.0 H Plt Count Lymph % (Auto) [place] % (Auto) Lymph # [place] # Baso # Seg Neutrophils % Seg Neuts % (Manual) Lymphocytes % (Manual) Monocytes % (Manual) Eosinophils % (Manual) Basophils % (Manual) Nucleated RBC % Seg Neutrophils # Seg Neutrophils # Man Lymphocytes # (Manual) Monocytes # (Manual) Eosinophils # (Manual) Basophils # (Manual) PT INR Fibrinogen dRVVT Confirm Interp Factor V Activity POC ABG pH 7.561 H POC ABG pCO2 24.4 L POC ABG pO2 77 L ABG pO2 ABG HCO3 ABG Base Excess ABG Hemoglobin Oxyhemoglobin Sodium 148 H Potassium Chloride Carbon Dioxide BUN 104 H Creatinine 3.0 H Glucose 149 H POC Glucose Lactic Acid Calcium Ionized Calcium Phosphorus Magnesium Direct Bilirubin AST ALT Alkaline Phosphatase 138 H Lactate Dehydrogenase Troponin T C-Reactive Protein Total Protein 6.2 L Albumin 1.5 L Prealbumin Triglycerides Cholesterol LDL Cholesterol Direct HDL Cholesterol 25-OH Vitamin D Total PTH Intact Urine pH Urine WBC (Auto) Urine Creatinine Urine Total Protein Fluid Total Protein Vancomycin Trough Rheumatoid Factor Complement C4 Miscellaneous Test Crossmatch 10/17/16 10/17/16 10/17/16 06:02 12:17 17:14 WBC RBC Hgb Hct MCV MCH MCHC RDW Plt Count Lymph % (Auto) [place] % (Auto) Lymph # [place] # Baso # Seg Neutrophils % Seg Neuts % (Manual) Lymphocytes % (Manual) Monocytes % (Manual) Eosinophils % (Manual) Basophils % (Manual) Nucleated RBC % Seg Neutrophils # Seg Neutrophils # Man Lymphocytes # (Manual) Monocytes # (Manual) Eosinophils # (Manual) Basophils # (Manual) PT INR Fibrinogen dRVVT Confirm Interp Factor V Activity POC ABG pH POC ABG pCO2 POC ABG pO2 ABG pO2 ABG HCO3 ABG Base Excess ABG Hemoglobin Oxyhemoglobin Sodium Potassium Chloride Carbon Dioxide BUN Creatinine Glucose POC Glucose 170 H 167 H 126 H Lactic Acid Calcium Ionized Calcium Phosphorus Magnesium Direct Bilirubin AST ALT Alkaline Phosphatase Lactate Dehydrogenase Troponin T C-Reactive Protein Total Protein Albumin Prealbumin Triglycerides Cholesterol LDL Cholesterol Direct HDL Cholesterol 25-OH Vitamin D Total PTH Intact Urine pH Urine WBC (Auto) Urine Creatinine Urine Total Protein Fluid Total Protein Vancomycin Trough Rheumatoid Factor Complement C4 Miscellaneous Test Crossmatch 10/17/16 10/18/16 10/18/16 23:17 04:00 04:00 WBC 20.7 H RBC 2.47 L Hgb 7.4 L Hct 22.9 L MCV MCH MCHC RDW 17.5 H Plt Count Lymph % (Auto) [place] % (Auto) Lymph # [place] # Baso # Seg Neutrophils % Seg Neuts % (Manual) Lymphocytes % (Manual) Monocytes % (Manual) Eosinophils % (Manual) Basophils % (Manual) Nucleated RBC % Seg Neutrophils # Seg Neutrophils # Man Lymphocytes # (Manual) Monocytes # (Manual) Eosinophils # (Manual) Basophils # (Manual) PT INR Fibrinogen dRVVT Confirm Interp Factor V Activity POC ABG pH POC ABG pCO2 POC ABG pO2 ABG pO2 ABG HCO3 ABG Base Excess ABG Hemoglobin Oxyhemoglobin Sodium 149 H Potassium Chloride 107.9 H Carbon Dioxide 20 L BUN 117 H Creatinine 3.2 H Glucose 119 H POC Glucose 121 H Lactic Acid Calcium Ionized Calcium Phosphorus Magnesium Direct Bilirubin AST ALT Alkaline Phosphatase Lactate Dehydrogenase Troponin T C-Reactive Protein Total Protein Albumin Prealbumin Triglycerides Cholesterol LDL Cholesterol Direct HDL Cholesterol 25-OH Vitamin D Total PTH Intact Urine pH Urine WBC (Auto) Urine Creatinine Urine Total Protein Fluid Total Protein Vancomycin Trough Rheumatoid Factor Complement C4 Miscellaneous Test Crossmatch 10/18/16 10/18/16 10/18/16 05:23 10:46 17:30 WBC RBC Hgb Hct MCV MCH MCHC RDW Plt Count Lymph % (Auto) [place] % (Auto) Lymph # [place] # Baso # Seg Neutrophils % Seg Neuts % (Manual) Lymphocytes % (Manual) Monocytes % (Manual) Eosinophils % (Manual) Basophils % (Manual) Nucleated RBC % Seg Neutrophils # Seg Neutrophils # Man Lymphocytes # (Manual) Monocytes # (Manual) Eosinophils # (Manual) Basophils # (Manual) PT INR Fibrinogen dRVVT Confirm Interp Factor V Activity POC ABG pH POC ABG pCO2 POC ABG pO2 ABG pO2 ABG HCO3 ABG Base Excess ABG Hemoglobin Oxyhemoglobin Sodium Potassium Chloride Carbon Dioxide BUN Creatinine Glucose POC Glucose 119 H 155 H 124 H Lactic Acid Calcium Ionized Calcium Phosphorus Magnesium Direct Bilirubin AST ALT Alkaline Phosphatase Lactate Dehydrogenase Troponin T C-Reactive Protein Total Protein Albumin Prealbumin Triglycerides Cholesterol LDL Cholesterol Direct HDL Cholesterol 25-OH Vitamin D Total PTH Intact Urine pH Urine WBC (Auto) Urine Creatinine Urine Total Protein Fluid Total Protein Vancomycin Trough Rheumatoid Factor Complement C4 Miscellaneous Test Crossmatch 10/19/16 10/19/16 10/19/16 04:00 04:00 05:25 WBC 17.4 H RBC 2.54 L Hgb 7.7 L Hct 23.6 L MCV MCH MCHC RDW 17.3 H Plt Count Lymph % (Auto) [place] % (Auto) Lymph # [place] # Baso # Seg Neutrophils % Seg Neuts % (Manual) Lymphocytes % (Manual) Monocytes % (Manual) Eosinophils % (Manual) Basophils % (Manual) Nucleated RBC % Seg Neutrophils # Seg Neutrophils # Man Lymphocytes # (Manual) Monocytes # (Manual) Eosinophils # (Manual) Basophils # (Manual) PT INR Fibrinogen dRVVT Confirm Interp Factor V Activity POC ABG pH POC ABG pCO2 POC ABG pO2 ABG pO2 ABG HCO3 ABG Base Excess ABG Hemoglobin Oxyhemoglobin Sodium Potassium Chloride Carbon Dioxide BUN 72 H Creatinine 2.1 H Glucose 116 H POC Glucose 119 H Lactic Acid Calcium Ionized Calcium Phosphorus Magnesium Direct Bilirubin AST ALT Alkaline Phosphatase Lactate Dehydrogenase Troponin T C-Reactive Protein Total Protein Albumin Prealbumin Triglycerides Cholesterol LDL Cholesterol Direct HDL Cholesterol 25-OH Vitamin D Total PTH Intact Urine pH Urine WBC (Auto) Urine Creatinine Urine Total Protein Fluid Total Protein Vancomycin Trough Rheumatoid Factor Complement C4 Miscellaneous Test Crossmatch 10/19/16 10/19/16 10/20/16 11:46 23:59 06:00 WBC RBC Hgb Hct MCV MCH MCHC RDW Plt Count Lymph % (Auto) [place] % (Auto) Lymph # [place] # Baso # Seg Neutrophils % Seg Neuts % (Manual) Lymphocytes % (Manual) Monocytes % (Manual) Eosinophils % (Manual) Basophils % (Manual) Nucleated RBC % Seg Neutrophils # Seg Neutrophils # Man Lymphocytes # (Manual) Monocytes # (Manual) Eosinophils # (Manual) Basophils # (Manual) PT INR Fibrinogen dRVVT Confirm Interp Factor V Activity POC ABG pH POC ABG pCO2 POC ABG pO2 ABG pO2 ABG HCO3 ABG Base Excess ABG Hemoglobin Oxyhemoglobin Sodium Potassium Chloride Carbon Dioxide 17 L BUN 94 H Creatinine 2.7 H Glucose POC Glucose 116 H 117 H Lactic Acid Calcium Ionized Calcium Phosphorus Magnesium Direct Bilirubin AST ALT Alkaline Phosphatase Lactate Dehydrogenase Troponin T C-Reactive Protein Total Protein Albumin Prealbumin Triglycerides Cholesterol LDL Cholesterol Direct HDL Cholesterol 25-OH Vitamin D Total PTH Intact Urine pH Urine WBC (Auto) Urine Creatinine Urine Total Protein Fluid Total Protein Vancomycin Trough Rheumatoid Factor Complement C4 Miscellaneous Test Crossmatch 10/20/16 10/20/16 10/20/16 06:00 11:49 16:00 WBC 19.7 H RBC 2.51 L Hgb 7.7 L Hct 23.5 L MCV MCH MCHC RDW 17.5 H Plt Count Lymph % (Auto) [place] % (Auto) Lymph # [place] # Baso # Seg Neutrophils % Seg Neuts % (Manual) Lymphocytes % (Manual) Monocytes % (Manual) Eosinophils % (Manual) Basophils % (Manual) Nucleated RBC % Seg Neutrophils # Seg Neutrophils # Man Lymphocytes # (Manual) Monocytes # (Manual) Eosinophils # (Manual) Basophils # (Manual) PT INR Fibrinogen dRVVT Confirm Interp Factor V Activity POC ABG pH POC ABG pCO2 POC ABG pO2 ABG pO2 ABG HCO3 ABG Base Excess ABG Hemoglobin Oxyhemoglobin Sodium Potassium Chloride Carbon Dioxide BUN Creatinine Glucose POC Glucose 117 H Lactic Acid Calcium Ionized Calcium Phosphorus Magnesium Direct Bilirubin AST ALT Alkaline Phosphatase Lactate Dehydrogenase Troponin T C-Reactive Protein Total Protein Albumin Prealbumin Triglycerides Cholesterol LDL Cholesterol Direct HDL Cholesterol 25-OH Vitamin D Total PTH Intact Urine pH Urine WBC (Auto) Urine Creatinine Urine Total Protein Fluid Total Protein Vancomycin Trough Rheumatoid Factor Complement C4 Miscellaneous Test Flexitest 1 H Crossmatch 10/20/16 10/20/16 10/21/16 18:36 23:39 04:00 WBC RBC Hgb Hct MCV MCH MCHC RDW Plt Count Lymph % (Auto) [place] % (Auto) Lymph # [place] # Baso # Seg Neutrophils % Seg Neuts % (Manual) Lymphocytes % (Manual) Monocytes % (Manual) Eosinophils % (Manual) Basophils % (Manual) Nucleated RBC % Seg Neutrophils # Seg Neutrophils # Man Lymphocytes # (Manual) Monocytes # (Manual) Eosinophils # (Manual) Basophils # (Manual) PT INR Fibrinogen dRVVT Confirm Interp Factor V Activity POC ABG pH POC ABG pCO2 POC ABG pO2 ABG pO2 ABG HCO3 ABG Base Excess ABG Hemoglobin Oxyhemoglobin Sodium Potassium 5.4 H D Chloride Carbon Dioxide 15 L BUN 110 H Creatinine 3.0 H Glucose POC Glucose 127 H 114 H Lactic Acid Calcium Ionized Calcium Phosphorus Magnesium Direct Bilirubin AST ALT Alkaline Phosphatase Lactate Dehydrogenase Troponin T C-Reactive Protein Total Protein Albumin Prealbumin Triglycerides Cholesterol LDL Cholesterol Direct HDL Cholesterol 25-OH Vitamin D Total PTH Intact Urine pH Urine WBC (Auto) Urine Creatinine Urine Total Protein Fluid Total Protein Vancomycin Trough Rheumatoid Factor Complement C4 Miscellaneous Test Crossmatch 10/21/16 10/21/16 10/22/16 05:54 23:46 05:18 WBC RBC Hgb Hct MCV MCH MCHC RDW Plt Count Lymph % (Auto) [place] % (Auto) Lymph # [place] # Baso # Seg Neutrophils % Seg Neuts % (Manual) Lymphocytes % (Manual) Monocytes % (Manual) Eosinophils % (Manual) Basophils % (Manual) Nucleated RBC % Seg Neutrophils # Seg Neutrophils # Man Lymphocytes # (Manual) Monocytes # (Manual) Eosinophils # (Manual) Basophils # (Manual) PT INR Fibrinogen dRVVT Confirm Interp Factor V Activity POC ABG pH POC ABG pCO2 POC ABG pO2 ABG pO2 ABG HCO3 ABG Base Excess ABG Hemoglobin Oxyhemoglobin Sodium Potassium Chloride Carbon Dioxide BUN Creatinine Glucose POC Glucose 119 H 108 H 109 H Lactic Acid Calcium Ionized Calcium Phosphorus Magnesium Direct Bilirubin AST ALT Alkaline Phosphatase Lactate Dehydrogenase Troponin T C-Reactive Protein Total Protein Albumin Prealbumin Triglycerides Cholesterol LDL Cholesterol Direct HDL Cholesterol 25-OH Vitamin D Total PTH Intact Urine pH Urine WBC (Auto) Urine Creatinine Urine Total Protein Fluid Total Protein Vancomycin Trough Rheumatoid Factor Complement C4 Miscellaneous Test Crossmatch 10/22/16 10/22/16 10/22/16 06:40 06:40 06:40 WBC 14.0 H RBC 2.03 L Hgb 7.0 L Hct 20.5 L MCV 98 H MCH 34 H MCHC 35 H RDW 17.8 H Plt Count Lymph % (Auto) [place] % (Auto) 9.9 H Lymph # [place] # 1.4 H Baso # 0.2 H Seg Neutrophils % 72.0 H Seg Neuts % (Manual) Lymphocytes % (Manual) Monocytes % (Manual) Eosinophils % (Manual) Basophils % (Manual) Nucleated RBC % Seg Neutrophils # 10.0 H Seg Neutrophils # Man Lymphocytes # (Manual) Monocytes # (Manual) Eosinophils # (Manual) Basophils # (Manual) PT INR Fibrinogen dRVVT Confirm Interp Factor V Activity POC ABG pH POC ABG pCO2 POC ABG pO2 ABG pO2 ABG HCO3 ABG Base Excess ABG Hemoglobin Oxyhemoglobin Sodium 130 L D Potassium Chloride 92.4 L Carbon Dioxide 20 L BUN 50 H Creatinine 1.6 H Glucose 589 H* POC Glucose Lactic Acid Calcium 7.8 L D Ionized Calcium Phosphorus Magnesium 1.60 L Direct Bilirubin AST ALT Alkaline Phosphatase Lactate Dehydrogenase Troponin T C-Reactive Protein Total Protein Albumin Prealbumin Triglycerides Cholesterol LDL Cholesterol Direct HDL Cholesterol 25-OH Vitamin D Total PTH Intact Urine pH Urine WBC (Auto) Urine Creatinine Urine Total Protein Fluid Total Protein Vancomycin Trough Rheumatoid Factor Complement C4 Miscellaneous Test Crossmatch 10/22/16 10/22/16 10/22/16 11:39 16:44 23:36 WBC RBC Hgb Hct MCV MCH MCHC RDW Plt Count Lymph % (Auto) [place] % (Auto) Lymph # [place] # Baso # Seg Neutrophils % Seg Neuts % (Manual) Lymphocytes % (Manual) Monocytes % (Manual) Eosinophils % (Manual) Basophils % (Manual) Nucleated RBC % Seg Neutrophils # Seg Neutrophils # Man Lymphocytes # (Manual) Monocytes # (Manual) Eosinophils # (Manual) Basophils # (Manual) PT INR Fibrinogen dRVVT Confirm Interp Factor V Activity POC ABG pH POC ABG pCO2 POC ABG pO2 ABG pO2 ABG HCO3 ABG Base Excess ABG Hemoglobin Oxyhemoglobin Sodium Potassium Chloride Carbon Dioxide BUN Creatinine Glucose POC Glucose 142 H 163 H 123 H Lactic Acid Calcium Ionized Calcium Phosphorus Magnesium Direct Bilirubin AST ALT Alkaline Phosphatase Lactate Dehydrogenase Troponin T C-Reactive Protein Total Protein Albumin Prealbumin Triglycerides Cholesterol LDL Cholesterol Direct HDL Cholesterol 25-OH Vitamin D Total PTH Intact Urine pH Urine WBC (Auto) Urine Creatinine Urine Total Protein Fluid Total Protein Vancomycin Trough Rheumatoid Factor Complement C4 Miscellaneous Test Crossmatch 10/23/16 10/23/16 10/23/16 04:58 06:00 12:12 WBC RBC Hgb Hct MCV MCH MCHC RDW Plt Count Lymph % (Auto) [place] % (Auto) Lymph # [place] # Baso # Seg Neutrophils % Seg Neuts % (Manual) Lymphocytes % (Manual) Monocytes % (Manual) Eosinophils % (Manual) Basophils % (Manual) Nucleated RBC % Seg Neutrophils # Seg Neutrophils # Man Lymphocytes # (Manual) Monocytes # (Manual) Eosinophils # (Manual) Basophils # (Manual) PT INR Fibrinogen dRVVT Confirm Interp Factor V Activity POC ABG pH POC ABG pCO2 POC ABG pO2 ABG pO2 ABG HCO3 ABG Base Excess ABG Hemoglobin Oxyhemoglobin Sodium 133 L Potassium 3.5 L Chloride 96.1 L Carbon Dioxide 18 L BUN 76 H Creatinine 2.1 H Glucose POC Glucose 133 H 138 H Lactic Acid Calcium 8.3 L Ionized Calcium Phosphorus Magnesium Direct Bilirubin AST ALT Alkaline Phosphatase Lactate Dehydrogenase Troponin T C-Reactive Protein Total Protein Albumin Prealbumin Triglycerides Cholesterol LDL Cholesterol Direct HDL Cholesterol 25-OH Vitamin D Total PTH Intact Urine pH Urine WBC (Auto) Urine Creatinine Urine Total Protein Fluid Total Protein Vancomycin Trough Rheumatoid Factor Complement C4 Miscellaneous Test Crossmatch 10/23/16 10/23/16 10/24/16 16:53 23:37 04:00 WBC RBC Hgb Hct MCV MCH MCHC RDW Plt Count Lymph % (Auto) [place] % (Auto) Lymph # [place] # Baso # Seg Neutrophils % Seg Neuts % (Manual) Lymphocytes % (Manual) Monocytes % (Manual) Eosinophils % (Manual) Basophils % (Manual) Nucleated RBC % Seg Neutrophils # Seg Neutrophils # Man Lymphocytes # (Manual) Monocytes # (Manual) Eosinophils # (Manual) Basophils # (Manual) PT INR Fibrinogen dRVVT Confirm Interp Factor V Activity POC ABG pH POC ABG pCO2 POC ABG pO2 ABG pO2 ABG HCO3 ABG Base Excess ABG Hemoglobin Oxyhemoglobin Sodium 131 L Potassium Chloride 94.5 L Carbon Dioxide 19 L BUN 97 H Creatinine 2.6 H Glucose 110 H POC Glucose 125 H 123 H Lactic Acid Calcium 8.3 L Ionized Calcium Phosphorus Magnesium Direct Bilirubin AST ALT Alkaline Phosphatase Lactate Dehydrogenase Troponin T C-Reactive Protein Total Protein Albumin Prealbumin Triglycerides Cholesterol LDL Cholesterol Direct HDL Cholesterol 25-OH Vitamin D Total PTH Intact Urine pH Urine WBC (Auto) Urine Creatinine Urine Total Protein Fluid Total Protein Vancomycin Trough Rheumatoid Factor Complement C4 Miscellaneous Test Crossmatch 10/24/16 10/24/16 10/24/16 07:49 11:39 17:52 WBC RBC Hgb 6.0 L Hct 19.7 L* MCV MCH MCHC RDW Plt Count Lymph % (Auto) [place] % (Auto) Lymph # [place] # Baso # Seg Neutrophils % Seg Neuts % (Manual) Lymphocytes % (Manual) Monocytes % (Manual) Eosinophils % (Manual) Basophils % (Manual) Nucleated RBC % Seg Neutrophils # Seg Neutrophils # Man Lymphocytes # (Manual) Monocytes # (Manual) Eosinophils # (Manual) Basophils # (Manual) PT INR Fibrinogen dRVVT Confirm Interp Factor V Activity POC ABG pH POC ABG pCO2 POC ABG pO2 ABG pO2 ABG HCO3 ABG Base Excess ABG Hemoglobin Oxyhemoglobin Sodium Potassium Chloride Carbon Dioxide BUN Creatinine Glucose POC Glucose 106 H 158 H Lactic Acid Calcium Ionized Calcium Phosphorus Magnesium Direct Bilirubin AST ALT Alkaline Phosphatase Lactate Dehydrogenase Troponin T C-Reactive Protein Total Protein Albumin Prealbumin Triglycerides Cholesterol LDL Cholesterol Direct HDL Cholesterol 25-OH Vitamin D Total PTH Intact Urine pH Urine WBC (Auto) Urine Creatinine Urine Total Protein Fluid Total Protein Vancomycin Trough Rheumatoid Factor Complement C4 Miscellaneous Test Crossmatch 10/24/16 10/24/16 10/24/16 20:00 22:27 Unknown WBC RBC Hgb 9.4 L D Hct 27.5 L D MCV MCH MCHC RDW Plt Count Lymph % (Auto) [place] % (Auto) Lymph # [place] # Baso # Seg Neutrophils % Seg Neuts % (Manual) Lymphocytes % (Manual) Monocytes % (Manual) Eosinophils % (Manual) Basophils % (Manual) Nucleated RBC % Seg Neutrophils # Seg Neutrophils # Man Lymphocytes # (Manual) Monocytes # (Manual) Eosinophils # (Manual) Basophils # (Manual) PT INR Fibrinogen dRVVT Confirm Interp Factor V Activity POC ABG pH POC ABG pCO2 POC ABG pO2 ABG pO2 ABG HCO3 ABG Base Excess ABG Hemoglobin Oxyhemoglobin Sodium Potassium Chloride Carbon Dioxide BUN Creatinine Glucose POC Glucose 125 H Lactic Acid Calcium Ionized Calcium Phosphorus Magnesium Direct Bilirubin AST ALT Alkaline Phosphatase Lactate Dehydrogenase Troponin T C-Reactive Protein Total Protein Albumin Prealbumin Triglycerides Cholesterol LDL Cholesterol Direct HDL Cholesterol 25-OH Vitamin D Total PTH Intact Urine pH Urine WBC (Auto) Urine Creatinine Urine Total Protein Fluid Total Protein Vancomycin Trough Rheumatoid Factor Complement C4 Miscellaneous Test Crossmatch See Detail 10/25/16 10/25/16 10/25/16 04:00 04:00 04:00 WBC 14.2 H RBC 2.98 L Hgb 9.0 L Hct 26.2 L MCV MCH MCHC RDW 16.6 H Plt Count Lymph % (Auto) [place] % (Auto) 10.7 H Lymph # [place] # 1.5 H Baso # Seg Neutrophils % 73.6 H Seg Neuts % (Manual) Lymphocytes % (Manual) Monocytes % (Manual) Eosinophils % (Manual) Basophils % (Manual) Nucleated RBC % Seg Neutrophils # 10.5 H Seg Neutrophils # Man Lymphocytes # (Manual) Monocytes # (Manual) Eosinophils # (Manual) Basophils # (Manual) PT INR Fibrinogen dRVVT Confirm Interp Factor V Activity POC ABG pH POC ABG pCO2 POC ABG pO2 ABG pO2 ABG HCO3 ABG Base Excess ABG Hemoglobin Oxyhemoglobin Sodium 132 L Potassium Chloride 94.7 L Carbon Dioxide BUN 51 H Creatinine 1.6 H Glucose 130 H POC Glucose Lactic Acid Calcium 8.3 L Ionized Calcium Phosphorus 1.60 L D Magnesium Direct Bilirubin AST ALT Alkaline Phosphatase Lactate Dehydrogenase Troponin T C-Reactive Protein Total Protein Albumin Prealbumin Triglycerides Cholesterol LDL Cholesterol Direct HDL Cholesterol 25-OH Vitamin D Total PTH Intact Urine pH Urine WBC (Auto) Urine Creatinine Urine Total Protein Fluid Total Protein Vancomycin Trough Rheumatoid Factor Complement C4 Miscellaneous Test Crossmatch 10/25/16 10/25/16 10/25/16 04:32 11:48 17:22 WBC RBC Hgb Hct MCV MCH MCHC RDW Plt Count Lymph % (Auto) [place] % (Auto) Lymph # [place] # Baso # Seg Neutrophils % Seg Neuts % (Manual) Lymphocytes % (Manual) Monocytes % (Manual) Eosinophils % (Manual) Basophils % (Manual) Nucleated RBC % Seg Neutrophils # Seg Neutrophils # Man Lymphocytes # (Manual) Monocytes # (Manual) Eosinophils # (Manual) Basophils # (Manual) PT INR Fibrinogen dRVVT Confirm Interp Factor V Activity POC ABG pH POC ABG pCO2 POC ABG pO2 ABG pO2 ABG HCO3 ABG Base Excess ABG Hemoglobin Oxyhemoglobin Sodium Potassium Chloride Carbon Dioxide BUN Creatinine Glucose POC Glucose 124 H 171 H 120 H Lactic Acid Calcium Ionized Calcium Phosphorus Magnesium Direct Bilirubin AST ALT Alkaline Phosphatase Lactate Dehydrogenase Troponin T C-Reactive Protein Total Protein Albumin Prealbumin Triglycerides Cholesterol LDL Cholesterol Direct HDL Cholesterol 25-OH Vitamin D Total PTH Intact Urine pH Urine WBC (Auto) Urine Creatinine Urine Total Protein Fluid Total Protein Vancomycin Trough Rheumatoid Factor Complement C4 Miscellaneous Test Crossmatch 10/26/16 10/26/16 10/26/16 04:54 07:06 07:06 WBC 16.9 H RBC 3.06 L Hgb 9.1 L Hct 26.9 L MCV MCH MCHC RDW 16.9 H Plt Count Lymph % (Auto) [place] % (Auto) Lymph # [place] # Baso # Seg Neutrophils % Seg Neuts % (Manual) 71.0 H Lymphocytes % (Manual) 5.0 L Monocytes % (Manual) 12.0 H Eosinophils % (Manual) Basophils % (Manual) Nucleated RBC % Seg Neutrophils # Seg Neutrophils # Man 12.0 H Lymphocytes # (Manual) 0.8 L Monocytes # (Manual) 2.0 H Eosinophils # (Manual) Basophils # (Manual) PT INR Fibrinogen dRVVT Confirm Interp Factor V Activity POC ABG pH POC ABG pCO2 POC ABG pO2 ABG pO2 ABG HCO3 ABG Base Excess ABG Hemoglobin Oxyhemoglobin Sodium 135 L Potassium Chloride 97.1 L Carbon Dioxide BUN 73 H Creatinine 2.2 H Glucose 117 H POC Glucose 123 H Lactic Acid Calcium Ionized Calcium Phosphorus 1.70 L Magnesium Direct Bilirubin AST ALT Alkaline Phosphatase Lactate Dehydrogenase Troponin T C-Reactive Protein Total Protein Albumin Prealbumin Triglycerides Cholesterol LDL Cholesterol Direct HDL Cholesterol 25-OH Vitamin D Total PTH Intact Urine pH Urine WBC (Auto) Urine Creatinine Urine Total Protein Fluid Total Protein Vancomycin Trough Rheumatoid Factor Complement C4 Miscellaneous Test Crossmatch 10/26/16 10/26/16 10/26/16 12:12 17:29 23:42 WBC RBC Hgb Hct MCV MCH MCHC RDW Plt Count Lymph % (Auto) [place] % (Auto) Lymph # [place] # Baso # Seg Neutrophils % Seg Neuts % (Manual) Lymphocytes % (Manual) Monocytes % (Manual) Eosinophils % (Manual) Basophils % (Manual) Nucleated RBC % Seg Neutrophils # Seg Neutrophils # Man Lymphocytes # (Manual) Monocytes # (Manual) Eosinophils # (Manual) Basophils # (Manual) PT INR Fibrinogen dRVVT Confirm Interp Factor V Activity POC ABG pH POC ABG pCO2 POC ABG pO2 ABG pO2 ABG HCO3 ABG Base Excess ABG Hemoglobin Oxyhemoglobin Sodium Potassium Chloride Carbon Dioxide BUN Creatinine Glucose POC Glucose 126 H 161 H 118 H Lactic Acid Calcium Ionized Calcium Phosphorus Magnesium Direct Bilirubin AST ALT Alkaline Phosphatase Lactate Dehydrogenase Troponin T C-Reactive Protein Total Protein Albumin Prealbumin Triglycerides Cholesterol LDL Cholesterol Direct HDL Cholesterol 25-OH Vitamin D Total PTH Intact Urine pH Urine WBC (Auto) Urine Creatinine Urine Total Protein Fluid Total Protein Vancomycin Trough Rheumatoid Factor Complement C4 Miscellaneous Test Crossmatch 10/27/16 10/27/16 10/27/16 05:03 06:30 06:30 WBC 13.9 H RBC 3.09 L Hgb 9.2 L Hct 27.5 L MCV MCH MCHC RDW 17.0 H Plt Count Lymph % (Auto) [place] % (Auto) Lymph # [place] # Baso # Seg Neutrophils % Seg Neuts % (Manual) 78.0 H Lymphocytes % (Manual) Monocytes % (Manual) Eosinophils % (Manual) Basophils % (Manual) Nucleated RBC % 2.0 H Seg Neutrophils # Seg Neutrophils # Man 10.8 H Lymphocytes # (Manual) Monocytes # (Manual) 1.0 H Eosinophils # (Manual) Basophils # (Manual) PT INR Fibrinogen dRVVT Confirm Interp Factor V Activity POC ABG pH POC ABG pCO2 POC ABG pO2 ABG pO2 ABG HCO3 ABG Base Excess ABG Hemoglobin Oxyhemoglobin Sodium Potassium Chloride Carbon Dioxide BUN 40 H Creatinine 1.5 H Glucose 135 H POC Glucose 107 H Lactic Acid Calcium 8.3 L Ionized Calcium Phosphorus 1.30 L D Magnesium Direct Bilirubin AST ALT Alkaline Phosphatase Lactate Dehydrogenase Troponin T C-Reactive Protein Total Protein Albumin Prealbumin Triglycerides Cholesterol LDL Cholesterol Direct HDL Cholesterol 25-OH Vitamin D Total PTH Intact Urine pH Urine WBC (Auto) Urine Creatinine Urine Total Protein Fluid Total Protein Vancomycin Trough Rheumatoid Factor Complement C4 Miscellaneous Test Crossmatch 10/27/16 10/27/16 10/27/16 13:27 18:07 23:40 WBC RBC Hgb Hct MCV MCH MCHC RDW Plt Count Lymph % (Auto) [place] % (Auto) Lymph # [place] # Baso # Seg Neutrophils % Seg Neuts % (Manual) Lymphocytes % (Manual) Monocytes % (Manual) Eosinophils % (Manual) Basophils % (Manual) Nucleated RBC % Seg Neutrophils # Seg Neutrophils # Man Lymphocytes # (Manual) Monocytes # (Manual) Eosinophils # (Manual) Basophils # (Manual) PT INR Fibrinogen dRVVT Confirm Interp Factor V Activity POC ABG pH POC ABG pCO2 POC ABG pO2 ABG pO2 ABG HCO3 ABG Base Excess ABG Hemoglobin Oxyhemoglobin Sodium Potassium Chloride Carbon Dioxide BUN Creatinine Glucose POC Glucose 117 H 121 H 118 H Lactic Acid Calcium Ionized Calcium Phosphorus Magnesium Direct Bilirubin AST ALT Alkaline Phosphatase Lactate Dehydrogenase Troponin T C-Reactive Protein Total Protein Albumin Prealbumin Triglycerides Cholesterol LDL Cholesterol Direct HDL Cholesterol 25-OH Vitamin D Total PTH Intact Urine pH Urine WBC (Auto) Urine Creatinine Urine Total Protein Fluid Total Protein Vancomycin Trough Rheumatoid Factor Complement C4 Miscellaneous Test Crossmatch 10/28/16 10/28/16 10/28/16 05:48 06:45 06:45 WBC 14.7 H RBC 3.05 L Hgb 9.0 L Hct 26.9 L MCV MCH MCHC RDW 16.8 H Plt Count Lymph % (Auto) 8.2 L [place] % (Auto) 8.4 H Lymph # [place] # 1.2 H Baso # Seg Neutrophils % 81.9 H Seg Neuts % (Manual) Lymphocytes % (Manual) Monocytes % (Manual) Eosinophils % (Manual) Basophils % (Manual) Nucleated RBC % Seg Neutrophils # 12.1 H Seg Neutrophils # Man Lymphocytes # (Manual) Monocytes # (Manual) Eosinophils # (Manual) Basophils # (Manual) PT INR Fibrinogen dRVVT Confirm Interp Factor V Activity POC ABG pH POC ABG pCO2 POC ABG pO2 ABG pO2 ABG HCO3 ABG Base Excess ABG Hemoglobin Oxyhemoglobin Sodium Potassium Chloride Carbon Dioxide BUN 60 H Creatinine 1.9 H Glucose 120 H POC Glucose 114 H Lactic Acid Calcium Ionized Calcium Phosphorus Magnesium Direct Bilirubin AST ALT Alkaline Phosphatase Lactate Dehydrogenase Troponin T C-Reactive Protein Total Protein Albumin Prealbumin Triglycerides Cholesterol LDL Cholesterol Direct HDL Cholesterol 25-OH Vitamin D Total PTH Intact Urine pH Urine WBC (Auto) Urine Creatinine Urine Total Protein Fluid Total Protein Vancomycin Trough Rheumatoid Factor Complement C4 Miscellaneous Test Crossmatch 10/28/16 10/28/16 10/29/16 17:08 23:50 05:10 WBC RBC Hgb Hct MCV MCH MCHC RDW Plt Count Lymph % (Auto) [place] % (Auto) Lymph # [place] # Baso # Seg Neutrophils % Seg Neuts % (Manual) Lymphocytes % (Manual) Monocytes % (Manual) Eosinophils % (Manual) Basophils % (Manual) Nucleated RBC % Seg Neutrophils # Seg Neutrophils # Man Lymphocytes # (Manual) Monocytes # (Manual) Eosinophils # (Manual) Basophils # (Manual) PT INR Fibrinogen dRVVT Confirm Interp Factor V Activity POC ABG pH POC ABG pCO2 POC ABG pO2 ABG pO2 ABG HCO3 ABG Base Excess ABG Hemoglobin Oxyhemoglobin Sodium Potassium Chloride Carbon Dioxide BUN Creatinine Glucose POC Glucose 109 H 110 H 124 H Lactic Acid Calcium Ionized Calcium Phosphorus Magnesium Direct Bilirubin AST ALT Alkaline Phosphatase Lactate Dehydrogenase Troponin T C-Reactive Protein Total Protein Albumin Prealbumin Triglycerides Cholesterol LDL Cholesterol Direct HDL Cholesterol 25-OH Vitamin D Total PTH Intact Urine pH Urine WBC (Auto) Urine Creatinine Urine Total Protein Fluid Total Protein Vancomycin Trough Rheumatoid Factor Complement C4 Miscellaneous Test Crossmatch 10/29/16 10/29/16 10/29/16 07:45 07:45 12:19 WBC 14.7 H RBC 3.15 L Hgb 9.3 L Hct 28.9 L MCV MCH MCHC RDW 17.0 H Plt Count Lymph % (Auto) 11.9 L [place] % (Auto) 8.6 H Lymph # [place] # 1.3 H Baso # Seg Neutrophils % 78.1 H Seg Neuts % (Manual) Lymphocytes % (Manual) Monocytes % (Manual) Eosinophils % (Manual) Basophils % (Manual) Nucleated RBC % Seg Neutrophils # 11.4 H Seg Neutrophils # Man Lymphocytes # (Manual) Monocytes # (Manual) Eosinophils # (Manual) Basophils # (Manual) PT INR Fibrinogen dRVVT Confirm Interp Factor V Activity POC ABG pH POC ABG pCO2 POC ABG pO2 ABG pO2 ABG HCO3 ABG Base Excess ABG Hemoglobin Oxyhemoglobin Sodium Potassium 5.1 H Chloride Carbon Dioxide 19 L BUN 78 H Creatinine 2.2 H Glucose 116 H POC Glucose 118 H Lactic Acid Calcium Ionized Calcium Phosphorus Magnesium Direct Bilirubin AST ALT Alkaline Phosphatase Lactate Dehydrogenase Troponin T C-Reactive Protein Total Protein Albumin Prealbumin Triglycerides Cholesterol LDL Cholesterol Direct HDL Cholesterol 25-OH Vitamin D Total PTH Intact Urine pH Urine WBC (Auto) Urine Creatinine Urine Total Protein Fluid Total Protein Vancomycin Trough Rheumatoid Factor Complement C4 Miscellaneous Test Crossmatch 10/29/16 10/30/16 10/30/16 17:49 01:52 03:28 WBC RBC Hgb Hct MCV MCH MCHC RDW Plt Count Lymph % (Auto) [place] % (Auto) Lymph # [place] # Baso # Seg Neutrophils % Seg Neuts % (Manual) Lymphocytes % (Manual) Monocytes % (Manual) Eosinophils % (Manual) Basophils % (Manual) Nucleated RBC % Seg Neutrophils # Seg Neutrophils # Man Lymphocytes # (Manual) Monocytes # (Manual) Eosinophils # (Manual) Basophils # (Manual) PT INR Fibrinogen dRVVT Confirm Interp Factor V Activity POC ABG pH POC ABG pCO2 POC ABG pO2 ABG pO2 ABG HCO3 ABG Base Excess ABG Hemoglobin Oxyhemoglobin Sodium Potassium 5.4 H Chloride 97.5 L Carbon Dioxide 19 L BUN 90 H Creatinine 2.5 H Glucose POC Glucose 120 H 129 H Lactic Acid Calcium Ionized Calcium Phosphorus 5.20 H Magnesium Direct Bilirubin AST ALT Alkaline Phosphatase Lactate Dehydrogenase Troponin T C-Reactive Protein Total Protein Albumin Prealbumin Triglycerides Cholesterol LDL Cholesterol Direct HDL Cholesterol 25-OH Vitamin D Total PTH Intact Urine pH Urine WBC (Auto) Urine Creatinine Urine Total Protein Fluid Total Protein Vancomycin Trough Rheumatoid Factor Complement C4 Miscellaneous Test Crossmatch 10/30/16 10/30/16 10/30/16 03:28 08:19 08:19 WBC 11.6 H 15.9 H RBC 2.75 L 2.82 L Hgb 7.9 L 8.3 L Hct 24.2 L 25.2 L MCV MCH MCHC RDW 16.7 H 17.2 H Plt Count Lymph % (Auto) [place] % (Auto) 9.8 H Lymph # [place] # 1.1 H Baso # Seg Neutrophils % 74.2 H Seg Neuts % (Manual) Lymphocytes % (Manual) Monocytes % (Manual) Eosinophils % (Manual) Basophils % (Manual) Nucleated RBC % Seg Neutrophils # 8.6 H Seg Neutrophils # Man Lymphocytes # (Manual) Monocytes # (Manual) Eosinophils # (Manual) Basophils # (Manual) PT INR Fibrinogen dRVVT Confirm Interp Factor V Activity POC ABG pH POC ABG pCO2 POC ABG pO2 ABG pO2 ABG HCO3 ABG Base Excess ABG Hemoglobin Oxyhemoglobin Sodium Potassium 5.3 H Chloride 97.4 L Carbon Dioxide 19 L BUN 93 H Creatinine 2.6 H Glucose POC Glucose Lactic Acid Calcium Ionized Calcium Phosphorus Magnesium Direct Bilirubin AST ALT Alkaline Phosphatase Lactate Dehydrogenase Troponin T C-Reactive Protein Total Protein Albumin Prealbumin Triglycerides Cholesterol LDL Cholesterol Direct HDL Cholesterol 25-OH Vitamin D Total PTH Intact Urine pH Urine WBC (Auto) Urine Creatinine Urine Total Protein Fluid Total Protein Vancomycin Trough Rheumatoid Factor Complement C4 Miscellaneous Test Crossmatch 10/30/16 10/30/16 10/31/16 17:11 23:56 00:40 WBC RBC Hgb Hct MCV MCH MCHC RDW Plt Count Lymph % (Auto) [place] % (Auto) Lymph # [place] # Baso # Seg Neutrophils % Seg Neuts % (Manual) Lymphocytes % (Manual) Monocytes % (Manual) Eosinophils % (Manual) Basophils % (Manual) Nucleated RBC % Seg Neutrophils # Seg Neutrophils # Man Lymphocytes # (Manual) Monocytes # (Manual) Eosinophils # (Manual) Basophils # (Manual) PT INR Fibrinogen dRVVT Confirm Interp Factor V Activity POC ABG pH POC ABG pCO2 POC ABG pO2 ABG pO2 ABG HCO3 ABG Base Excess ABG Hemoglobin Oxyhemoglobin Sodium Potassium Chloride Carbon Dioxide BUN Creatinine Glucose POC Glucose 106 H 117 H 120 H Lactic Acid Calcium Ionized Calcium Phosphorus Magnesium Direct Bilirubin AST ALT Alkaline Phosphatase Lactate Dehydrogenase Troponin T C-Reactive Protein Total Protein Albumin Prealbumin Triglycerides Cholesterol LDL Cholesterol Direct HDL Cholesterol 25-OH Vitamin D Total PTH Intact Urine pH Urine WBC (Auto) Urine Creatinine Urine Total Protein Fluid Total Protein Vancomycin Trough Rheumatoid Factor Complement C4 Miscellaneous Test Crossmatch 10/31/16 10/31/16 10/31/16 05:43 07:15 07:15 WBC 12.1 H RBC 2.63 L Hgb 7.7 L Hct 23.3 L MCV MCH MCHC RDW 16.7 H Plt Count Lymph % (Auto) 11.7 L [place] % (Auto) 7.7 H Lymph # [place] # 0.9 H Baso # Seg Neutrophils % 78.0 H Seg Neuts % (Manual) Lymphocytes % (Manual) Monocytes % (Manual) Eosinophils % (Manual) Basophils % (Manual) Nucleated RBC % Seg Neutrophils # 9.4 H Seg Neutrophils # Man Lymphocytes # (Manual) Monocytes # (Manual) Eosinophils # (Manual) Basophils # (Manual) PT INR Fibrinogen dRVVT Confirm Interp Factor V Activity POC ABG pH POC ABG pCO2 POC ABG pO2 ABG pO2 ABG HCO3 ABG Base Excess ABG Hemoglobin Oxyhemoglobin Sodium Potassium Chloride 96.4 L Carbon Dioxide 21 L BUN 99 H Creatinine 2.6 H Glucose 144 H POC Glucose 125 H Lactic Acid Calcium Ionized Calcium Phosphorus 4.80 H Magnesium Direct Bilirubin AST ALT Alkaline Phosphatase Lactate Dehydrogenase Troponin T C-Reactive Protein Total Protein Albumin Prealbumin Triglycerides Cholesterol LDL Cholesterol Direct HDL Cholesterol 25-OH Vitamin D Total PTH Intact Urine pH Urine WBC (Auto) Urine Creatinine Urine Total Protein Fluid Total Protein Vancomycin Trough Rheumatoid Factor Complement C4 Miscellaneous Test Crossmatch 10/31/16 10/31/16 11/01/16 11:46 18:34 00:20 WBC RBC Hgb Hct MCV MCH MCHC RDW Plt Count Lymph % (Auto) [place] % (Auto) Lymph # [place] # Baso # Seg Neutrophils % Seg Neuts % (Manual) Lymphocytes % (Manual) Monocytes % (Manual) Eosinophils % (Manual) Basophils % (Manual) Nucleated RBC % Seg Neutrophils # Seg Neutrophils # Man Lymphocytes # (Manual) Monocytes # (Manual) Eosinophils # (Manual) Basophils # (Manual) PT INR Fibrinogen dRVVT Confirm Interp Factor V Activity POC ABG pH POC ABG pCO2 POC ABG pO2 ABG pO2 ABG HCO3 ABG Base Excess ABG Hemoglobin Oxyhemoglobin Sodium Potassium Chloride Carbon Dioxide BUN Creatinine Glucose POC Glucose 159 H 140 H 132 H Lactic Acid Calcium Ionized Calcium Phosphorus Magnesium Direct Bilirubin AST ALT Alkaline Phosphatase Lactate Dehydrogenase Troponin T C-Reactive Protein Total Protein Albumin Prealbumin Triglycerides Cholesterol LDL Cholesterol Direct HDL Cholesterol 25-OH Vitamin D Total PTH Intact Urine pH Urine WBC (Auto) Urine Creatinine Urine Total Protein Fluid Total Protein Vancomycin Trough Rheumatoid Factor Complement C4 Miscellaneous Test Crossmatch 11/01/16 11/01/16 11/01/16 04:55 04:55 06:11 WBC 11.2 H RBC 2.68 L Hgb 7.5 L Hct 23.7 L MCV MCH MCHC RDW 16.1 H Plt Count Lymph % (Auto) [place] % (Auto) 9.8 H Lymph # [place] # 1.1 H Baso # Seg Neutrophils % 70.8 H Seg Neuts % (Manual) Lymphocytes % (Manual) Monocytes % (Manual) Eosinophils % (Manual) Basophils % (Manual) Nucleated RBC % Seg Neutrophils # 7.9 H Seg Neutrophils # Man Lymphocytes # (Manual) Monocytes # (Manual) Eosinophils # (Manual) Basophils # (Manual) PT INR Fibrinogen dRVVT Confirm Interp Factor V Activity POC ABG pH POC ABG pCO2 POC ABG pO2 ABG pO2 ABG HCO3 ABG Base Excess ABG Hemoglobin Oxyhemoglobin Sodium Potassium 3.3 L D Chloride Carbon Dioxide BUN 61 H Creatinine 1.9 H Glucose 114 H POC Glucose 115 H Lactic Acid Calcium Ionized Calcium Phosphorus 1.80 L D Magnesium Direct Bilirubin AST ALT Alkaline Phosphatase Lactate Dehydrogenase Troponin T C-Reactive Protein Total Protein Albumin Prealbumin Triglycerides Cholesterol LDL Cholesterol Direct HDL Cholesterol 25-OH Vitamin D Total PTH Intact Urine pH Urine WBC (Auto) Urine Creatinine Urine Total Protein Fluid Total Protein Vancomycin Trough Rheumatoid Factor Complement C4 Miscellaneous Test Crossmatch 11/01/16 11/01/16 11/01/16 12:29 18:23 23:58 WBC RBC Hgb Hct MCV MCH MCHC RDW Plt Count Lymph % (Auto) [place] % (Auto) Lymph # [place] # Baso # Seg Neutrophils % Seg Neuts % (Manual) Lymphocytes % (Manual) Monocytes % (Manual) Eosinophils % (Manual) Basophils % (Manual) Nucleated RBC % Seg Neutrophils # Seg Neutrophils # Man Lymphocytes # (Manual) Monocytes # (Manual) Eosinophils # (Manual) Basophils # (Manual) PT INR Fibrinogen dRVVT Confirm Interp Factor V Activity POC ABG pH POC ABG pCO2 POC ABG pO2 ABG pO2 ABG HCO3 ABG Base Excess ABG Hemoglobin Oxyhemoglobin Sodium Potassium Chloride Carbon Dioxide BUN Creatinine Glucose POC Glucose 142 H 143 H 128 H Lactic Acid Calcium Ionized Calcium Phosphorus Magnesium Direct Bilirubin AST ALT Alkaline Phosphatase Lactate Dehydrogenase Troponin T C-Reactive Protein Total Protein Albumin Prealbumin Triglycerides Cholesterol LDL Cholesterol Direct HDL Cholesterol 25-OH Vitamin D Total PTH Intact Urine pH Urine WBC (Auto) Urine Creatinine Urine Total Protein Fluid Total Protein Vancomycin Trough Rheumatoid Factor Complement C4 Miscellaneous Test Crossmatch 11/02/16 11/02/16 11/02/16 04:16 05:29 11:58 WBC RBC Hgb Hct MCV MCH MCHC RDW Plt Count Lymph % (Auto) [place] % (Auto) Lymph # [place] # Baso # Seg Neutrophils % Seg Neuts % (Manual) Lymphocytes % (Manual) Monocytes % (Manual) Eosinophils % (Manual) Basophils % (Manual) Nucleated RBC % Seg Neutrophils # Seg Neutrophils # Man Lymphocytes # (Manual) Monocytes # (Manual) Eosinophils # (Manual) Basophils # (Manual) PT INR Fibrinogen dRVVT Confirm Interp Factor V Activity POC ABG pH POC ABG pCO2 POC ABG pO2 ABG pO2 ABG HCO3 ABG Base Excess ABG Hemoglobin Oxyhemoglobin Sodium Potassium 3.1 L Chloride Carbon Dioxide BUN 73 H Creatinine 2.3 H Glucose 112 H POC Glucose 135 H 149 H Lactic Acid Calcium Ionized Calcium Phosphorus Magnesium Direct Bilirubin AST ALT Alkaline Phosphatase Lactate Dehydrogenase Troponin T C-Reactive Protein Total Protein Albumin Prealbumin Triglycerides Cholesterol LDL Cholesterol Direct HDL Cholesterol 25-OH Vitamin D Total PTH Intact Urine pH Urine WBC (Auto) Urine Creatinine Urine Total Protein Fluid Total Protein Vancomycin Trough Rheumatoid Factor Complement C4 Miscellaneous Test Crossmatch 11/02/16 11/02/16 11/03/16 17:42 22:54 06:00 WBC RBC Hgb Hct MCV MCH MCHC RDW Plt Count Lymph % (Auto) [place] % (Auto) Lymph # [place] # Baso # Seg Neutrophils % Seg Neuts % (Manual) Lymphocytes % (Manual) Monocytes % (Manual) Eosinophils % (Manual) Basophils % (Manual) Nucleated RBC % Seg Neutrophils # Seg Neutrophils # Man Lymphocytes # (Manual) Monocytes # (Manual) Eosinophils # (Manual) Basophils # (Manual) PT INR Fibrinogen dRVVT Confirm Interp Factor V Activity POC ABG pH POC ABG pCO2 POC ABG pO2 ABG pO2 ABG HCO3 ABG Base Excess ABG Hemoglobin Oxyhemoglobin Sodium Potassium Chloride 96.7 L Carbon Dioxide BUN 41 H Creatinine 1.5 H Glucose 145 H POC Glucose 182 H 115 H Lactic Acid Calcium Ionized Calcium Phosphorus 1.60 L D Magnesium 1.50 L Direct Bilirubin AST ALT Alkaline Phosphatase Lactate Dehydrogenase Troponin T C-Reactive Protein Total Protein Albumin Prealbumin Triglycerides Cholesterol LDL Cholesterol Direct HDL Cholesterol 25-OH Vitamin D Total PTH Intact Urine pH Urine WBC (Auto) Urine Creatinine Urine Total Protein Fluid Total Protein Vancomycin Trough Rheumatoid Factor Complement C4 Miscellaneous Test Crossmatch 11/03/16 11/03/16 11/03/16 11:53 17:45 23:37 WBC RBC Hgb Hct MCV MCH MCHC RDW Plt Count Lymph % (Auto) [place] % (Auto) Lymph # [place] # Baso # Seg Neutrophils % Seg Neuts % (Manual) Lymphocytes % (Manual) Monocytes % (Manual) Eosinophils % (Manual) Basophils % (Manual) Nucleated RBC % Seg Neutrophils # Seg Neutrophils # Man Lymphocytes # (Manual) Monocytes # (Manual) Eosinophils # (Manual) Basophils # (Manual) PT INR Fibrinogen dRVVT Confirm Interp Factor V Activity POC ABG pH POC ABG pCO2 POC ABG pO2 ABG pO2 ABG HCO3 ABG Base Excess ABG Hemoglobin Oxyhemoglobin Sodium Potassium Chloride Carbon Dioxide BUN Creatinine Glucose POC Glucose 131 H 134 H 113 H Lactic Acid Calcium Ionized Calcium Phosphorus Magnesium Direct Bilirubin AST ALT Alkaline Phosphatase Lactate Dehydrogenase Troponin T C-Reactive Protein Total Protein Albumin Prealbumin Triglycerides Cholesterol LDL Cholesterol Direct HDL Cholesterol 25-OH Vitamin D Total PTH Intact Urine pH Urine WBC (Auto) Urine Creatinine Urine Total Protein Fluid Total Protein Vancomycin Trough Rheumatoid Factor Complement C4 Miscellaneous Test Crossmatch 11/04/16 11/04/16 11/04/16 05:41 06:00 12:10 WBC RBC Hgb Hct MCV MCH MCHC RDW Plt Count Lymph % (Auto) [place] % (Auto) Lymph # [place] # Baso # Seg Neutrophils % Seg Neuts % (Manual) Lymphocytes % (Manual) Monocytes % (Manual) Eosinophils % (Manual) Basophils % (Manual) Nucleated RBC % Seg Neutrophils # Seg Neutrophils # Man Lymphocytes # (Manual) Monocytes # (Manual) Eosinophils # (Manual) Basophils # (Manual) PT INR Fibrinogen dRVVT Confirm Interp Factor V Activity POC ABG pH POC ABG pCO2 POC ABG pO2 ABG pO2 ABG HCO3 ABG Base Excess ABG Hemoglobin Oxyhemoglobin Sodium Potassium Chloride 96.7 L Carbon Dioxide BUN 52 H Creatinine 1.9 H Glucose 126 H POC Glucose 137 H 191 H Lactic Acid Calcium Ionized Calcium Phosphorus Magnesium Direct Bilirubin AST ALT Alkaline Phosphatase Lactate Dehydrogenase Troponin T C-Reactive Protein Total Protein Albumin Prealbumin Triglycerides Cholesterol LDL Cholesterol Direct HDL Cholesterol 25-OH Vitamin D Total PTH Intact Urine pH Urine WBC (Auto) Urine Creatinine Urine Total Protein Fluid Total Protein Vancomycin Trough Rheumatoid Factor Complement C4 Miscellaneous Test Crossmatch 11/04/16 11/05/16 11/05/16 22:57 03:10 05:10 WBC RBC Hgb Hct MCV MCH MCHC RDW Plt Count Lymph % (Auto) [place] % (Auto) Lymph # [place] # Baso # Seg Neutrophils % Seg Neuts % (Manual) Lymphocytes % (Manual) Monocytes % (Manual) Eosinophils % (Manual) Basophils % (Manual) Nucleated RBC % Seg Neutrophils # Seg Neutrophils # Man Lymphocytes # (Manual) Monocytes # (Manual) Eosinophils # (Manual) Basophils # (Manual) PT INR Fibrinogen dRVVT Confirm Interp Factor V Activity POC ABG pH POC ABG pCO2 POC ABG pO2 ABG pO2 ABG HCO3 ABG Base Excess ABG Hemoglobin Oxyhemoglobin Sodium 136 L Potassium Chloride 97.2 L Carbon Dioxide BUN 32 H Creatinine 1.3 H Glucose 123 H POC Glucose 125 H 108 H Lactic Acid Calcium 7.8 L Ionized Calcium Phosphorus Magnesium Direct Bilirubin AST ALT Alkaline Phosphatase Lactate Dehydrogenase Troponin T C-Reactive Protein Total Protein Albumin Prealbumin Triglycerides Cholesterol LDL Cholesterol Direct HDL Cholesterol 25-OH Vitamin D Total PTH Intact Urine pH Urine WBC (Auto) Urine Creatinine Urine Total Protein Fluid Total Protein Vancomycin Trough Rheumatoid Factor Complement C4 Miscellaneous Test Crossmatch 11/05/16 11/05/16 11/05/16 12:23 13:09 13:25 WBC RBC Hgb Hct MCV MCH MCHC RDW Plt Count Lymph % (Auto) [place] % (Auto) Lymph # [place] # Baso # Seg Neutrophils % Seg Neuts % (Manual) Lymphocytes % (Manual) Monocytes % (Manual) Eosinophils % (Manual) Basophils % (Manual) Nucleated RBC % Seg Neutrophils # Seg Neutrophils # Man Lymphocytes # (Manual) Monocytes # (Manual) Eosinophils # (Manual) Basophils # (Manual) PT INR Fibrinogen dRVVT Confirm Interp Factor V Activity POC ABG pH POC ABG pCO2 POC ABG pO2 ABG pO2 ABG HCO3 ABG Base Excess ABG Hemoglobin Oxyhemoglobin Sodium Potassium Chloride Carbon Dioxide BUN Creatinine Glucose POC Glucose 124 H Lactic Acid Calcium Ionized Calcium Phosphorus Magnesium Direct Bilirubin AST ALT Alkaline Phosphatase Lactate Dehydrogenase Troponin T C-Reactive Protein 11.40 H Total Protein Albumin Prealbumin Triglycerides Cholesterol LDL Cholesterol Direct HDL Cholesterol 25-OH Vitamin D Total PTH Intact Urine pH 9.0 H Urine WBC (Auto) Urine Creatinine Urine Total Protein Fluid Total Protein Vancomycin Trough Rheumatoid Factor Complement C4 Miscellaneous Test Crossmatch 11/05/16 11/05/16 11/05/16 13:25 17:54 23:42 WBC RBC Hgb Hct MCV MCH MCHC RDW Plt Count Lymph % (Auto) [place] % (Auto) Lymph # [place] # Baso # Seg Neutrophils % Seg Neuts % (Manual) Lymphocytes % (Manual) Monocytes % (Manual) Eosinophils % (Manual) Basophils % (Manual) Nucleated RBC % Seg Neutrophils # Seg Neutrophils # Man Lymphocytes # (Manual) Monocytes # (Manual) Eosinophils # (Manual) Basophils # (Manual) PT INR Fibrinogen dRVVT Confirm Interp Factor V Activity POC ABG pH POC ABG pCO2 POC ABG pO2 ABG pO2 ABG HCO3 ABG Base Excess ABG Hemoglobin Oxyhemoglobin Sodium Potassium Chloride Carbon Dioxide BUN Creatinine Glucose POC Glucose 114 H 134 H Lactic Acid Calcium Ionized Calcium Phosphorus Magnesium Direct Bilirubin AST ALT Alkaline Phosphatase Lactate Dehydrogenase Troponin T C-Reactive Protein Total Protein Albumin Prealbumin Triglycerides Cholesterol LDL Cholesterol Direct HDL Cholesterol 25-OH Vitamin D Total PTH Intact Urine pH Urine WBC (Auto) Urine Creatinine Urine Total Protein Fluid Total Protein Vancomycin Trough Rheumatoid Factor Complement C4 Miscellaneous Test Flexitest 1 H Crossmatch 11/06/16 11/06/16 11/06/16 04:56 06:25 06:25 WBC RBC 2.50 L Hgb 7.3 L Hct 22.5 L MCV MCH MCHC RDW 16.9 H Plt Count Lymph % (Auto) [place] % (Auto) 10.5 H Lymph # [place] # 1.1 H Baso # Seg Neutrophils % Seg Neuts % (Manual) Lymphocytes % (Manual) Monocytes % (Manual) Eosinophils % (Manual) Basophils % (Manual) Nucleated RBC % Seg Neutrophils # Seg Neutrophils # Man Lymphocytes # (Manual) Monocytes # (Manual) Eosinophils # (Manual) Basophils # (Manual) PT INR Fibrinogen dRVVT Confirm Interp Factor V Activity POC ABG pH POC ABG pCO2 POC ABG pO2 ABG pO2 ABG HCO3 ABG Base Excess ABG Hemoglobin Oxyhemoglobin Sodium Potassium 5.1 H Chloride 95.9 L Carbon Dioxide BUN 52 H Creatinine 1.8 H Glucose 117 H POC Glucose 120 H Lactic Acid Calcium Ionized Calcium Phosphorus Magnesium Direct Bilirubin AST 103 H ALT 77 H Alkaline Phosphatase 285 H Lactate Dehydrogenase Troponin T C-Reactive Protein Total Protein 6.2 L Albumin 1.8 L Prealbumin 0.180 L Triglycerides Cholesterol LDL Cholesterol Direct HDL Cholesterol 25-OH Vitamin D Total PTH Intact Urine pH Urine WBC (Auto) Urine Creatinine Urine Total Protein Fluid Total Protein Vancomycin Trough Rheumatoid Factor Complement C4 Miscellaneous Test Crossmatch 11/06/16 11/06/16 11/06/16 11:56 17:14 23:52 WBC RBC Hgb Hct MCV MCH MCHC RDW Plt Count Lymph % (Auto) [place] % (Auto) Lymph # [place] # Baso # Seg Neutrophils % Seg Neuts % (Manual) Lymphocytes % (Manual) Monocytes % (Manual) Eosinophils % (Manual) Basophils % (Manual) Nucleated RBC % Seg Neutrophils # Seg Neutrophils # Man Lymphocytes # (Manual) Monocytes # (Manual) Eosinophils # (Manual) Basophils # (Manual) PT INR Fibrinogen dRVVT Confirm Interp Factor V Activity POC ABG pH POC ABG pCO2 POC ABG pO2 ABG pO2 ABG HCO3 ABG Base Excess ABG Hemoglobin Oxyhemoglobin Sodium Potassium Chloride Carbon Dioxide BUN Creatinine Glucose POC Glucose 141 H 125 H 130 H Lactic Acid Calcium Ionized Calcium Phosphorus Magnesium Direct Bilirubin AST ALT Alkaline Phosphatase Lactate Dehydrogenase Troponin T C-Reactive Protein Total Protein Albumin Prealbumin Triglycerides Cholesterol LDL Cholesterol Direct HDL Cholesterol 25-OH Vitamin D Total PTH Intact Urine pH Urine WBC (Auto) Urine Creatinine Urine Total Protein Fluid Total Protein Vancomycin Trough Rheumatoid Factor Complement C4 Miscellaneous Test Crossmatch 11/07/16 11/07/16 11/07/16 06:30 06:30 09:37 WBC RBC 2.18 L Hgb 6.3 L Hct 19.7 L* MCV MCH MCHC RDW 16.8 H Plt Count Lymph % (Auto) [place] % (Auto) 10.0 H Lymph # [place] # 1.0 H Baso # Seg Neutrophils % Seg Neuts % (Manual) Lymphocytes % (Manual) Monocytes % (Manual) Eosinophils % (Manual) Basophils % (Manual) Nucleated RBC % Seg Neutrophils # Seg Neutrophils # Man Lymphocytes # (Manual) Monocytes # (Manual) Eosinophils # (Manual) Basophils # (Manual) PT INR Fibrinogen dRVVT Confirm Interp Factor V Activity POC ABG pH POC ABG pCO2 POC ABG pO2 ABG pO2 ABG HCO3 ABG Base Excess ABG Hemoglobin Oxyhemoglobin Sodium 135 L Potassium Chloride 95.6 L Carbon Dioxide BUN 70 H Creatinine 2.0 H Glucose 126 H POC Glucose Lactic Acid Calcium Ionized Calcium Phosphorus Magnesium Direct Bilirubin AST ALT Alkaline Phosphatase Lactate Dehydrogenase Troponin T C-Reactive Protein Total Protein Albumin Prealbumin Triglycerides Cholesterol LDL Cholesterol Direct HDL Cholesterol 25-OH Vitamin D Total PTH Intact Urine pH Urine WBC (Auto) Urine Creatinine Urine Total Protein Fluid Total Protein Vancomycin Trough Rheumatoid Factor Complement C4 Miscellaneous Test Crossmatch See Detail 11/07/16 11/07/16 11/07/16 12:52 18:51 21:26 WBC RBC Hgb Hct MCV MCH MCHC RDW Plt Count Lymph % (Auto) [place] % (Auto) Lymph # [place] # Baso # Seg Neutrophils % Seg Neuts % (Manual) Lymphocytes % (Manual) Monocytes % (Manual) Eosinophils % (Manual) Basophils % (Manual) Nucleated RBC % Seg Neutrophils # Seg Neutrophils # Man Lymphocytes # (Manual) Monocytes # (Manual) Eosinophils # (Manual) Basophils # (Manual) PT INR Fibrinogen dRVVT Confirm Interp Factor V Activity POC ABG pH 7.523 H POC ABG pCO2 34.6 L POC ABG pO2 53 L ABG pO2 ABG HCO3 ABG Base Excess ABG Hemoglobin Oxyhemoglobin Sodium Potassium Chloride Carbon Dioxide BUN Creatinine Glucose POC Glucose 142 H 155 H Lactic Acid Calcium Ionized Calcium Phosphorus Magnesium Direct Bilirubin AST ALT Alkaline Phosphatase Lactate Dehydrogenase Troponin T C-Reactive Protein Total Protein Albumin Prealbumin Triglycerides Cholesterol LDL Cholesterol Direct HDL Cholesterol 25-OH Vitamin D Total PTH Intact Urine pH Urine WBC (Auto) Urine Creatinine Urine Total Protein Fluid Total Protein Vancomycin Trough Rheumatoid Factor Complement C4 Miscellaneous Test Crossmatch 11/07/16 11/08/16 11/08/16 21:34 13:03 23:37 WBC RBC 2.63 L Hgb 7.7 L Hct 22.7 L MCV MCH MCHC RDW 17.0 H Plt Count Lymph % (Auto) [place] % (Auto) Lymph # [place] # Baso # Seg Neutrophils % Seg Neuts % (Manual) Lymphocytes % (Manual) Monocytes % (Manual) Eosinophils % (Manual) Basophils % (Manual) Nucleated RBC % Seg Neutrophils # Seg Neutrophils # Man Lymphocytes # (Manual) Monocytes # (Manual) Eosinophils # (Manual) Basophils # (Manual) PT INR Fibrinogen dRVVT Confirm Interp Factor V Activity POC ABG pH 7.478 H POC ABG pCO2 34.0 L POC ABG pO2 50 L ABG pO2 ABG HCO3 ABG Base Excess ABG Hemoglobin Oxyhemoglobin Sodium Potassium Chloride Carbon Dioxide BUN Creatinine Glucose POC Glucose 113 H Lactic Acid Calcium Ionized Calcium Phosphorus Magnesium Direct Bilirubin AST ALT Alkaline Phosphatase Lactate Dehydrogenase Troponin T C-Reactive Protein Total Protein Albumin Prealbumin Triglycerides Cholesterol LDL Cholesterol Direct HDL Cholesterol 25-OH Vitamin D Total PTH Intact Urine pH Urine WBC (Auto) Urine Creatinine Urine Total Protein Fluid Total Protein Vancomycin Trough Rheumatoid Factor Complement C4 Miscellaneous Test Crossmatch 11/09/16 11/09/16 11/09/16 04:35 10:15 18:21 WBC RBC 2.68 L Hgb 7.8 L Hct 23.3 L MCV MCH MCHC RDW 17.0 H Plt Count Lymph % (Auto) [place] % (Auto) 12.1 H Lymph # [place] # 1.1 H Baso # Seg Neutrophils % Seg Neuts % (Manual) Lymphocytes % (Manual) Monocytes % (Manual) Eosinophils % (Manual) Basophils % (Manual) Nucleated RBC % Seg Neutrophils # Seg Neutrophils # Man Lymphocytes # (Manual) Monocytes # (Manual) Eosinophils # (Manual) Basophils # (Manual) PT INR Fibrinogen dRVVT Confirm Interp Factor V Activity POC ABG pH POC ABG pCO2 POC ABG pO2 ABG pO2 ABG HCO3 ABG Base Excess ABG Hemoglobin Oxyhemoglobin Sodium Potassium Chloride Carbon Dioxide BUN 51 H Creatinine 1.8 H Glucose POC Glucose 60 L Lactic Acid Calcium 8.3 L Ionized Calcium Phosphorus Magnesium Direct Bilirubin AST ALT Alkaline Phosphatase Lactate Dehydrogenase Troponin T C-Reactive Protein Total Protein Albumin Prealbumin Triglycerides Cholesterol LDL Cholesterol Direct HDL Cholesterol 25-OH Vitamin D Total PTH Intact Urine pH Urine WBC (Auto) Urine Creatinine Urine Total Protein Fluid Total Protein Vancomycin Trough Rheumatoid Factor Complement C4 Miscellaneous Test Crossmatch 11/09/16 11/10/16 11/10/16 18:55 07:00 11:51 WBC RBC Hgb Hct MCV MCH MCHC RDW Plt Count Lymph % (Auto) [place] % (Auto) Lymph # [place] # Baso # Seg Neutrophils % Seg Neuts % (Manual) Lymphocytes % (Manual) Monocytes % (Manual) Eosinophils % (Manual) Basophils % (Manual) Nucleated RBC % Seg Neutrophils # Seg Neutrophils # Man Lymphocytes # (Manual) Monocytes # (Manual) Eosinophils # (Manual) Basophils # (Manual) PT INR Fibrinogen dRVVT Confirm Interp Factor V Activity POC ABG pH POC ABG pCO2 POC ABG pO2 ABG pO2 ABG HCO3 ABG Base Excess ABG Hemoglobin Oxyhemoglobin Sodium Potassium 3.0 L D Chloride 97.4 L Carbon Dioxide BUN 28 H Creatinine 1.3 H Glucose POC Glucose 68 L 120 H Lactic Acid Calcium 7.8 L Ionized Calcium Phosphorus Magnesium Direct Bilirubin AST ALT Alkaline Phosphatase Lactate Dehydrogenase Troponin T C-Reactive Protein Total Protein Albumin Prealbumin Triglycerides Cholesterol LDL Cholesterol Direct HDL Cholesterol 25-OH Vitamin D Total PTH Intact Urine pH Urine WBC (Auto) Urine Creatinine Urine Total Protein Fluid Total Protein Vancomycin Trough Rheumatoid Factor Complement C4 Miscellaneous Test Crossmatch 11/10/16 11/11/16 11/11/16 14:20 06:59 06:59 WBC RBC 2.81 L Hgb 8.1 L Hct 24.4 L MCV MCH MCHC RDW 16.4 H Plt Count Lymph % (Auto) [place] % (Auto) 10.8 H Lymph # [place] # 1.0 H Baso # Seg Neutrophils % Seg Neuts % (Manual) Lymphocytes % (Manual) Monocytes % (Manual) Eosinophils % (Manual) Basophils % (Manual) Nucleated RBC % Seg Neutrophils # Seg Neutrophils # Man Lymphocytes # (Manual) Monocytes # (Manual) Eosinophils # (Manual) Basophils # (Manual) PT INR Fibrinogen dRVVT Confirm Interp Factor V Activity POC ABG pH POC ABG pCO2 POC ABG pO2 ABG pO2 ABG HCO3 ABG Base Excess ABG Hemoglobin Oxyhemoglobin Sodium Potassium Chloride Carbon Dioxide BUN Creatinine Glucose POC Glucose Lactic Acid Calcium Ionized Calcium Phosphorus Magnesium Direct Bilirubin AST ALT Alkaline Phosphatase Lactate Dehydrogenase 196 H Troponin T C-Reactive Protein Total Protein 6.1 L Albumin Prealbumin Triglycerides Cholesterol LDL Cholesterol Direct HDL Cholesterol 25-OH Vitamin D Total PTH Intact Urine pH Urine WBC (Auto) Urine Creatinine Urine Total Protein Fluid Total Protein < 3.0 L Vancomycin Trough Rheumatoid Factor Complement C4 Miscellaneous Test Crossmatch 11/11/16 11/11/16 11/12/16 06:59 09:50 04:00 WBC RBC Hgb Hct MCV MCH MCHC RDW Plt Count Lymph % (Auto) [place] % (Auto) Lymph # [place] # Baso # Seg Neutrophils % Seg Neuts % (Manual) Lymphocytes % (Manual) Monocytes % (Manual) Eosinophils % (Manual) Basophils % (Manual) Nucleated RBC % Seg Neutrophils # Seg Neutrophils # Man Lymphocytes # (Manual) Monocytes # (Manual) Eosinophils # (Manual) Basophils # (Manual) PT INR 1.18 H Fibrinogen dRVVT Confirm Interp Factor V Activity POC ABG pH POC ABG pCO2 POC ABG pO2 ABG pO2 ABG HCO3 ABG Base Excess ABG Hemoglobin Oxyhemoglobin Sodium 136 L 133 L Potassium Chloride 96.1 L 94.8 L Carbon Dioxide 21 L BUN 37 H 42 H Creatinine 1.8 H 2.0 H Glucose POC Glucose Lactic Acid Calcium Ionized Calcium Phosphorus Magnesium Direct Bilirubin AST ALT Alkaline Phosphatase Lactate Dehydrogenase Troponin T C-Reactive Protein Total Protein Albumin Prealbumin Triglycerides Cholesterol LDL Cholesterol Direct HDL Cholesterol 25-OH Vitamin D Total PTH Intact Urine pH Urine WBC (Auto) Urine Creatinine Urine Total Protein Fluid Total Protein Vancomycin Trough Rheumatoid Factor Complement C4 Miscellaneous Test Crossmatch 11/12/16 11/12/16 11/13/16 04:00 23:55 05:53 WBC RBC Hgb 8.9 L Hct 27.2 L MCV MCH MCHC RDW Plt Count Lymph % (Auto) [place] % (Auto) Lymph # [place] # Baso # Seg Neutrophils % Seg Neuts % (Manual) Lymphocytes % (Manual) Monocytes % (Manual) Eosinophils % (Manual) Basophils % (Manual) Nucleated RBC % Seg Neutrophils # Seg Neutrophils # Man Lymphocytes # (Manual) Monocytes # (Manual) Eosinophils # (Manual) Basophils # (Manual) PT INR Fibrinogen dRVVT Confirm Interp Factor V Activity POC ABG pH POC ABG pCO2 POC ABG pO2 ABG pO2 ABG HCO3 ABG Base Excess ABG Hemoglobin Oxyhemoglobin Sodium Potassium Chloride Carbon Dioxide BUN Creatinine Glucose POC Glucose 132 H 120 H Lactic Acid Calcium Ionized Calcium Phosphorus Magnesium Direct Bilirubin AST ALT Alkaline Phosphatase Lactate Dehydrogenase Troponin T C-Reactive Protein Total Protein Albumin Prealbumin Triglycerides Cholesterol LDL Cholesterol Direct HDL Cholesterol 25-OH Vitamin D Total PTH Intact Urine pH Urine WBC (Auto) Urine Creatinine Urine Total Protein Fluid Total Protein Vancomycin Trough Rheumatoid Factor Complement C4 Miscellaneous Test Crossmatch 11/13/16 11/13/16 11/13/16 11:43 17:09 23:41 WBC RBC Hgb Hct MCV MCH MCHC RDW Plt Count Lymph % (Auto) [place] % (Auto) Lymph # [place] # Baso # Seg Neutrophils % Seg Neuts % (Manual) Lymphocytes % (Manual) Monocytes % (Manual) Eosinophils % (Manual) Basophils % (Manual) Nucleated RBC % Seg Neutrophils # Seg Neutrophils # Man Lymphocytes # (Manual) Monocytes # (Manual) Eosinophils # (Manual) Basophils # (Manual) PT INR Fibrinogen dRVVT Confirm Interp Factor V Activity POC ABG pH POC ABG pCO2 POC ABG pO2 ABG pO2 ABG HCO3 ABG Base Excess ABG Hemoglobin Oxyhemoglobin Sodium Potassium Chloride Carbon Dioxide BUN Creatinine Glucose POC Glucose 114 H 113 H 108 H Lactic Acid Calcium Ionized Calcium Phosphorus Magnesium Direct Bilirubin AST ALT Alkaline Phosphatase Lactate Dehydrogenase Troponin T C-Reactive Protein Total Protein Albumin Prealbumin Triglycerides Cholesterol LDL Cholesterol Direct HDL Cholesterol 25-OH Vitamin D Total PTH Intact Urine pH Urine WBC (Auto) Urine Creatinine Urine Total Protein Fluid Total Protein Vancomycin Trough Rheumatoid Factor Complement C4 Miscellaneous Test Crossmatch 11/13/16 11/15/16 11/15/16 Unknown 00:37 03:30 WBC 11.2 H RBC 2.72 L Hgb 7.6 L Hct 23.4 L MCV MCH MCHC RDW 16.5 H Plt Count Lymph % (Auto) [place] % (Auto) Lymph # [place] # Baso # Seg Neutrophils % Seg Neuts % (Manual) Lymphocytes % (Manual) Monocytes % (Manual) Eosinophils % (Manual) Basophils % (Manual) Nucleated RBC % Seg Neutrophils # Seg Neutrophils # Man Lymphocytes # (Manual) Monocytes # (Manual) Eosinophils # (Manual) Basophils # (Manual) PT INR Fibrinogen dRVVT Confirm Interp Factor V Activity POC ABG pH POC ABG pCO2 POC ABG pO2 ABG pO2 ABG HCO3 ABG Base Excess ABG Hemoglobin Oxyhemoglobin Sodium 135 L Potassium Chloride 95.2 L Carbon Dioxide BUN 52 H Creatinine 2.2 H Glucose POC Glucose 108 H Lactic Acid Calcium Ionized Calcium Phosphorus Magnesium Direct Bilirubin AST ALT Alkaline Phosphatase Lactate Dehydrogenase Troponin T C-Reactive Protein Total Protein Albumin Prealbumin Triglycerides Cholesterol LDL Cholesterol Direct HDL Cholesterol 25-OH Vitamin D Total PTH Intact Urine pH Urine WBC (Auto) Urine Creatinine Urine Total Protein Fluid Total Protein Vancomycin Trough Rheumatoid Factor Complement C4 Miscellaneous Test Crossmatch 11/15/16 11/15/16 11/15/16 03:30 05:04 11:50 WBC RBC Hgb Hct MCV MCH MCHC RDW Plt Count Lymph % (Auto) [place] % (Auto) Lymph # [place] # Baso # Seg Neutrophils % Seg Neuts % (Manual) Lymphocytes % (Manual) Monocytes % (Manual) Eosinophils % (Manual) Basophils % (Manual) Nucleated RBC % Seg Neutrophils # Seg Neutrophils # Man Lymphocytes # (Manual) Monocytes # (Manual) Eosinophils # (Manual) Basophils # (Manual) PT INR Fibrinogen dRVVT Confirm Interp Factor V Activity POC ABG pH POC ABG pCO2 POC ABG pO2 ABG pO2 ABG HCO3 ABG Base Excess ABG Hemoglobin Oxyhemoglobin Sodium Potassium 3.4 L Chloride Carbon Dioxide BUN 25 H Creatinine 1.5 H Glucose 103 H POC Glucose 121 H 144 H Lactic Acid Calcium Ionized Calcium Phosphorus Magnesium Direct Bilirubin AST ALT Alkaline Phosphatase Lactate Dehydrogenase Troponin T C-Reactive Protein Total Protein Albumin Prealbumin Triglycerides Cholesterol LDL Cholesterol Direct HDL Cholesterol 25-OH Vitamin D Total PTH Intact Urine pH Urine WBC (Auto) Urine Creatinine Urine Total Protein Fluid Total Protein Vancomycin Trough Rheumatoid Factor Complement C4 Miscellaneous Test Crossmatch 11/15/16 11/15/16 11/16/16 21:28 23:20 11:44 WBC RBC Hgb Hct MCV MCH MCHC RDW Plt Count Lymph % (Auto) [place] % (Auto) Lymph # [place] # Baso # Seg Neutrophils % Seg Neuts % (Manual) Lymphocytes % (Manual) Monocytes % (Manual) Eosinophils % (Manual) Basophils % (Manual) Nucleated RBC % Seg Neutrophils # Seg Neutrophils # Man Lymphocytes # (Manual) Monocytes # (Manual) Eosinophils # (Manual) Basophils # (Manual) PT INR Fibrinogen dRVVT Confirm Interp Factor V Activity POC ABG pH 7.462 H POC ABG pCO2 POC ABG pO2 71 L ABG pO2 ABG HCO3 ABG Base Excess ABG Hemoglobin Oxyhemoglobin Sodium Potassium Chloride Carbon Dioxide BUN Creatinine Glucose POC Glucose 116 H 133 H Lactic Acid Calcium Ionized Calcium Phosphorus Magnesium Direct Bilirubin AST ALT Alkaline Phosphatase Lactate Dehydrogenase Troponin T C-Reactive Protein Total Protein Albumin Prealbumin Triglycerides Cholesterol LDL Cholesterol Direct HDL Cholesterol 25-OH Vitamin D Total PTH Intact Urine pH Urine WBC (Auto) Urine Creatinine Urine Total Protein Fluid Total Protein Vancomycin Trough Rheumatoid Factor Complement C4 Miscellaneous Test Crossmatch 11/16/16 11/16/16 11/16/16 12:20 17:05 23:35 WBC 11.7 H RBC 2.73 L Hgb 7.6 L Hct 23.7 L MCV MCH MCHC RDW 16.6 H Plt Count Lymph % (Auto) [place] % (Auto) Lymph # [place] # Baso # Seg Neutrophils % Seg Neuts % (Manual) Lymphocytes % (Manual) Monocytes % (Manual) Eosinophils % (Manual) Basophils % (Manual) Nucleated RBC % Seg Neutrophils # Seg Neutrophils # Man Lymphocytes # (Manual) Monocytes # (Manual) Eosinophils # (Manual) Basophils # (Manual) PT INR Fibrinogen dRVVT Confirm Interp Factor V Activity POC ABG pH POC ABG pCO2 POC ABG pO2 ABG pO2 ABG HCO3 ABG Base Excess ABG Hemoglobin Oxyhemoglobin Sodium Potassium Chloride Carbon Dioxide BUN Creatinine Glucose POC Glucose 154 H 125 H Lactic Acid Calcium Ionized Calcium Phosphorus Magnesium Direct Bilirubin AST ALT Alkaline Phosphatase Lactate Dehydrogenase Troponin T C-Reactive Protein Total Protein Albumin Prealbumin Triglycerides Cholesterol LDL Cholesterol Direct HDL Cholesterol 25-OH Vitamin D Total PTH Intact Urine pH Urine WBC (Auto) Urine Creatinine Urine Total Protein Fluid Total Protein Vancomycin Trough Rheumatoid Factor Complement C4 Miscellaneous Test Crossmatch 11/17/16 11/17/16 11/17/16 03:20 03:20 03:20 WBC RBC 2.55 L Hgb 7.3 L Hct 21.9 L MCV MCH MCHC RDW 16.6 H Plt Count Lymph % (Auto) [place] % (Auto) 11.5 H Lymph # [place] # 1.1 H Baso # Seg Neutrophils % Seg Neuts % (Manual) Lymphocytes % (Manual) Monocytes % (Manual) Eosinophils % (Manual) Basophils % (Manual) Nucleated RBC % Seg Neutrophils # Seg Neutrophils # Man Lymphocytes # (Manual) Monocytes # (Manual) Eosinophils # (Manual) Basophils # (Manual) PT 16.8 H INR 1.37 H Fibrinogen dRVVT Confirm Interp Factor V Activity POC ABG pH POC ABG pCO2 POC ABG pO2 ABG pO2 ABG HCO3 ABG Base Excess ABG Hemoglobin Oxyhemoglobin Sodium Potassium 3.5 L Chloride Carbon Dioxide BUN 21 H Creatinine Glucose POC Glucose Lactic Acid Calcium 7.9 L Ionized Calcium Phosphorus Magnesium Direct Bilirubin AST ALT Alkaline Phosphatase Lactate Dehydrogenase Troponin T C-Reactive Protein Total Protein Albumin Prealbumin Triglycerides Cholesterol LDL Cholesterol Direct HDL Cholesterol 25-OH Vitamin D Total PTH Intact Urine pH Urine WBC (Auto) Urine Creatinine Urine Total Protein Fluid Total Protein Vancomycin Trough Rheumatoid Factor Complement C4 Miscellaneous Test Crossmatch 11/17/16 11/17/16 11/17/16 06:34 11:21 21:22 WBC RBC Hgb Hct MCV MCH MCHC RDW Plt Count Lymph % (Auto) [place] % (Auto) Lymph # [place] # Baso # Seg Neutrophils % Seg Neuts % (Manual) Lymphocytes % (Manual) Monocytes % (Manual) Eosinophils % (Manual) Basophils % (Manual) Nucleated RBC % Seg Neutrophils # Seg Neutrophils # Man Lymphocytes # (Manual) Monocytes # (Manual) Eosinophils # (Manual) Basophils # (Manual) PT INR Fibrinogen dRVVT Confirm Interp Factor V Activity POC ABG pH 7.467 H POC ABG pCO2 POC ABG pO2 73 L ABG pO2 ABG HCO3 ABG Base Excess ABG Hemoglobin Oxyhemoglobin Sodium Potassium Chloride Carbon Dioxide BUN Creatinine Glucose POC Glucose 121 H 119 H Lactic Acid Calcium Ionized Calcium Phosphorus Magnesium Direct Bilirubin AST ALT Alkaline Phosphatase Lactate Dehydrogenase Troponin T C-Reactive Protein Total Protein Albumin Prealbumin Triglycerides Cholesterol LDL Cholesterol Direct HDL Cholesterol 25-OH Vitamin D Total PTH Intact Urine pH Urine WBC (Auto) Urine Creatinine Urine Total Protein Fluid Total Protein Vancomycin Trough Rheumatoid Factor Complement C4 Miscellaneous Test Crossmatch 11/18/16 11/18/16 11/19/16 12:16 17:19 00:00 WBC RBC Hgb Hct MCV MCH MCHC RDW Plt Count Lymph % (Auto) [place] % (Auto) Lymph # [place] # Baso # Seg Neutrophils % Seg Neuts % (Manual) Lymphocytes % (Manual) Monocytes % (Manual) Eosinophils % (Manual) Basophils % (Manual) Nucleated RBC % Seg Neutrophils # Seg Neutrophils # Man Lymphocytes # (Manual) Monocytes # (Manual) Eosinophils # (Manual) Basophils # (Manual) PT INR Fibrinogen dRVVT Confirm Interp Factor V Activity POC ABG pH POC ABG pCO2 POC ABG pO2 ABG pO2 ABG HCO3 ABG Base Excess ABG Hemoglobin Oxyhemoglobin Sodium Potassium Chloride Carbon Dioxide BUN Creatinine Glucose POC Glucose 124 H 162 H 139 H Lactic Acid Calcium Ionized Calcium Phosphorus Magnesium Direct Bilirubin AST ALT Alkaline Phosphatase Lactate Dehydrogenase Troponin T C-Reactive Protein Total Protein Albumin Prealbumin Triglycerides Cholesterol LDL Cholesterol Direct HDL Cholesterol 25-OH Vitamin D Total PTH Intact Urine pH Urine WBC (Auto) Urine Creatinine Urine Total Protein Fluid Total Protein Vancomycin Trough Rheumatoid Factor Complement C4 Miscellaneous Test Crossmatch 11/19/16 11/19/16 11/20/16 05:00 12:43 00:40 WBC RBC Hgb Hct MCV MCH MCHC RDW Plt Count Lymph % (Auto) [place] % (Auto) Lymph # [place] # Baso # Seg Neutrophils % Seg Neuts % (Manual) Lymphocytes % (Manual) Monocytes % (Manual) Eosinophils % (Manual) Basophils % (Manual) Nucleated RBC % Seg Neutrophils # Seg Neutrophils # Man Lymphocytes # (Manual) Monocytes # (Manual) Eosinophils # (Manual) Basophils # (Manual) PT INR Fibrinogen dRVVT Confirm Interp Factor V Activity POC ABG pH POC ABG pCO2 POC ABG pO2 ABG pO2 ABG HCO3 ABG Base Excess ABG Hemoglobin Oxyhemoglobin Sodium Potassium Chloride Carbon Dioxide BUN Creatinine Glucose POC Glucose 110 H 125 H 136 H Lactic Acid Calcium Ionized Calcium Phosphorus Magnesium Direct Bilirubin AST ALT Alkaline Phosphatase Lactate Dehydrogenase Troponin T C-Reactive Protein Total Protein Albumin Prealbumin Triglycerides Cholesterol LDL Cholesterol Direct HDL Cholesterol 25-OH Vitamin D Total PTH Intact Urine pH Urine WBC (Auto) Urine Creatinine Urine Total Protein Fluid Total Protein Vancomycin Trough Rheumatoid Factor Complement C4 Miscellaneous Test Crossmatch 11/20/16 11/20/16 11/20/16 05:00 05:00 05:51 WBC 13.1 H RBC 2.74 L Hgb 7.7 L Hct 23.6 L MCV MCH MCHC RDW 16.9 H Plt Count Lymph % (Auto) [place] % (Auto) 10.8 H Lymph # [place] # 1.4 H Baso # Seg Neutrophils % Seg Neuts % (Manual) Lymphocytes % (Manual) Monocytes % (Manual) Eosinophils % (Manual) Basophils % (Manual) Nucleated RBC % Seg Neutrophils # 7.9 H Seg Neutrophils # Man Lymphocytes # (Manual) Monocytes # (Manual) Eosinophils # (Manual) Basophils # (Manual) PT INR Fibrinogen dRVVT Confirm Interp Factor V Activity POC ABG pH POC ABG pCO2 POC ABG pO2 ABG pO2 ABG HCO3 ABG Base Excess ABG Hemoglobin Oxyhemoglobin Sodium Potassium Chloride Carbon Dioxide BUN 31 H Creatinine 1.8 H Glucose 129 H POC Glucose 133 H Lactic Acid Calcium Ionized Calcium Phosphorus Magnesium Direct Bilirubin AST ALT Alkaline Phosphatase Lactate Dehydrogenase Troponin T C-Reactive Protein Total Protein Albumin Prealbumin Triglycerides Cholesterol LDL Cholesterol Direct HDL Cholesterol 25-OH Vitamin D Total PTH Intact Urine pH Urine WBC (Auto) Urine Creatinine Urine Total Protein Fluid Total Protein Vancomycin Trough Rheumatoid Factor Complement C4 Miscellaneous Test Crossmatch 11/20/16 11/20/16 11/21/16 12:40 18:10 01:20 WBC RBC Hgb Hct MCV MCH MCHC RDW Plt Count Lymph % (Auto) [place] % (Auto) Lymph # [place] # Baso # Seg Neutrophils % Seg Neuts % (Manual) Lymphocytes % (Manual) Monocytes % (Manual) Eosinophils % (Manual) Basophils % (Manual) Nucleated RBC % Seg Neutrophils # Seg Neutrophils # Man Lymphocytes # (Manual) Monocytes # (Manual) Eosinophils # (Manual) Basophils # (Manual) PT INR Fibrinogen dRVVT Confirm Interp Factor V Activity POC ABG pH POC ABG pCO2 POC ABG pO2 ABG pO2 ABG HCO3 ABG Base Excess ABG Hemoglobin Oxyhemoglobin Sodium Potassium Chloride Carbon Dioxide BUN Creatinine Glucose POC Glucose 134 H 138 H 136 H Lactic Acid Calcium Ionized Calcium Phosphorus Magnesium Direct Bilirubin AST ALT Alkaline Phosphatase Lactate Dehydrogenase Troponin T C-Reactive Protein Total Protein Albumin Prealbumin Triglycerides Cholesterol LDL Cholesterol Direct HDL Cholesterol 25-OH Vitamin D Total PTH Intact Urine pH Urine WBC (Auto) Urine Creatinine Urine Total Protein Fluid Total Protein Vancomycin Trough Rheumatoid Factor Complement C4 Miscellaneous Test Crossmatch 11/21/16 11/21/16 11/21/16 07:04 07:45 07:45 WBC 22.0 H RBC 2.91 L Hgb 8.2 L Hct 25.4 L MCV MCH MCHC RDW 17.1 H Plt Count Lymph % (Auto) [place] % (Auto) Lymph # [place] # Baso # Seg Neutrophils % Seg Neuts % (Manual) Lymphocytes % (Manual) 8.0 L Monocytes % (Manual) Eosinophils % (Manual) Basophils % (Manual) Nucleated RBC % Seg Neutrophils # Seg Neutrophils # Man 14.7 H Lymphocytes # (Manual) Monocytes # (Manual) 1.1 H Eosinophils # (Manual) Basophils # (Manual) PT INR Fibrinogen dRVVT Confirm Interp Factor V Activity POC ABG pH POC ABG pCO2 POC ABG pO2 ABG pO2 ABG HCO3 ABG Base Excess ABG Hemoglobin Oxyhemoglobin Sodium Potassium Chloride Carbon Dioxide BUN 42 H Creatinine 2.0 H Glucose POC Glucose 108 H Lactic Acid Calcium Ionized Calcium Phosphorus Magnesium Direct Bilirubin AST ALT Alkaline Phosphatase Lactate Dehydrogenase Troponin T C-Reactive Protein Total Protein Albumin Prealbumin Triglycerides Cholesterol LDL Cholesterol Direct HDL Cholesterol 25-OH Vitamin D Total PTH Intact Urine pH Urine WBC (Auto) Urine Creatinine Urine Total Protein Fluid Total Protein Vancomycin Trough Rheumatoid Factor Complement C4 Miscellaneous Test Crossmatch 11/21/16 11/21/16 11/21/16 08:38 10:09 11:20 WBC RBC Hgb Hct MCV MCH MCHC RDW Plt Count Lymph % (Auto) [place] % (Auto) Lymph # [place] # Baso # Seg Neutrophils % Seg Neuts % (Manual) Lymphocytes % (Manual) Monocytes % (Manual) Eosinophils % (Manual) Basophils % (Manual) Nucleated RBC % Seg Neutrophils # Seg Neutrophils # Man Lymphocytes # (Manual) Monocytes # (Manual) Eosinophils # (Manual) Basophils # (Manual) PT INR Fibrinogen dRVVT Confirm Interp Factor V Activity POC ABG pH 7.346 L POC ABG pCO2 34.4 L POC ABG pO2 314 H ABG pO2 ABG HCO3 ABG Base Excess ABG Hemoglobin Oxyhemoglobin Sodium Potassium Chloride Carbon Dioxide BUN Creatinine Glucose POC Glucose 195 H 153 H Lactic Acid Calcium Ionized Calcium Phosphorus Magnesium Direct Bilirubin AST ALT Alkaline Phosphatase Lactate Dehydrogenase Troponin T C-Reactive Protein Total Protein Albumin Prealbumin Triglycerides Cholesterol LDL Cholesterol Direct HDL Cholesterol 25-OH Vitamin D Total PTH Intact Urine pH Urine WBC (Auto) Urine Creatinine Urine Total Protein Fluid Total Protein Vancomycin Trough Rheumatoid Factor Complement C4 Miscellaneous Test Crossmatch 11/21/16 11/22/16 11/22/16 23:37 04:48 05:00 WBC 29.7 H RBC 2.73 L Hgb 7.5 L Hct 24.2 L MCV MCH 27 L MCHC RDW 17.4 H Plt Count Lymph % (Auto) [place] % (Auto) Lymph # [place] # Baso # Seg Neutrophils % Seg Neuts % (Manual) Lymphocytes % (Manual) 7.0 L Monocytes % (Manual) Eosinophils % (Manual) Basophils % (Manual) Nucleated RBC % Seg Neutrophils # Seg Neutrophils # Man 15.4 H Lymphocytes # (Manual) Monocytes # (Manual) Eosinophils # (Manual) Basophils # (Manual) PT INR Fibrinogen dRVVT Confirm Interp Factor V Activity POC ABG pH POC ABG pCO2 24.6 L POC ABG pO2 189 H ABG pO2 ABG HCO3 ABG Base Excess ABG Hemoglobin Oxyhemoglobin Sodium Potassium Chloride Carbon Dioxide BUN Creatinine Glucose POC Glucose 65 L Lactic Acid Calcium Ionized Calcium Phosphorus Magnesium Direct Bilirubin AST ALT Alkaline Phosphatase Lactate Dehydrogenase Troponin T C-Reactive Protein Total Protein Albumin Prealbumin Triglycerides Cholesterol LDL Cholesterol Direct HDL Cholesterol 25-OH Vitamin D Total PTH Intact Urine pH Urine WBC (Auto) Urine Creatinine Urine Total Protein Fluid Total Protein Vancomycin Trough Rheumatoid Factor Complement C4 Miscellaneous Test Crossmatch 11/22/16 11/23/16 11/23/16 05:00 03:44 04:06 WBC RBC 2.52 L Hgb 7.2 L Hct 21.5 L MCV MCH MCHC RDW 17.1 H Plt Count Lymph % (Auto) [place] % (Auto) 12.4 H Lymph # [place] # 1.4 H Baso # Seg Neutrophils % Seg Neuts % (Manual) Lymphocytes % (Manual) Monocytes % (Manual) Eosinophils % (Manual) Basophils % (Manual) Nucleated RBC % Seg Neutrophils # Seg Neutrophils # Man Lymphocytes # (Manual) Monocytes # (Manual) Eosinophils # (Manual) Basophils # (Manual) PT INR Fibrinogen dRVVT Confirm Interp Factor V Activity POC ABG pH 7.493 H POC ABG pCO2 29.5 L POC ABG pO2 49 L ABG pO2 ABG HCO3 ABG Base Excess ABG Hemoglobin Oxyhemoglobin Sodium 134 L Potassium Chloride 95.9 L Carbon Dioxide 14 L D BUN 51 H Creatinine 2.6 H Glucose POC Glucose Lactic Acid Calcium Ionized Calcium Phosphorus Magnesium Direct Bilirubin AST ALT Alkaline Phosphatase Lactate Dehydrogenase Troponin T C-Reactive Protein Total Protein Albumin Prealbumin Triglycerides Cholesterol LDL Cholesterol Direct HDL Cholesterol 25-OH Vitamin D Total PTH Intact Urine pH Urine WBC (Auto) Urine Creatinine Urine Total Protein Fluid Total Protein Vancomycin Trough Rheumatoid Factor Complement C4 Miscellaneous Test Crossmatch 11/23/16 11/23/16 11/24/16 04:06 11:29 06:39 WBC RBC Hgb Hct MCV MCH MCHC RDW Plt Count Lymph % (Auto) [place] % (Auto) Lymph # [place] # Baso # Seg Neutrophils % Seg Neuts % (Manual) Lymphocytes % (Manual) Monocytes % (Manual) Eosinophils % (Manual) Basophils % (Manual) Nucleated RBC % Seg Neutrophils # Seg Neutrophils # Man Lymphocytes # (Manual) Monocytes # (Manual) Eosinophils # (Manual) Basophils # (Manual) PT INR Fibrinogen dRVVT Confirm Interp Factor V Activity POC ABG pH POC ABG pCO2 POC ABG pO2 ABG pO2 ABG HCO3 ABG Base Excess ABG Hemoglobin Oxyhemoglobin Sodium 136 L Potassium Chloride 95.2 L Carbon Dioxide BUN 60 H Creatinine 2.9 H Glucose POC Glucose 69 L 305 H Lactic Acid Calcium Ionized Calcium Phosphorus Magnesium 1.60 L Direct Bilirubin AST ALT Alkaline Phosphatase Lactate Dehydrogenase Troponin T C-Reactive Protein Total Protein Albumin Prealbumin Triglycerides Cholesterol LDL Cholesterol Direct HDL Cholesterol 25-OH Vitamin D Total PTH Intact Urine pH Urine WBC (Auto) Urine Creatinine Urine Total Protein Fluid Total Protein Vancomycin Trough Rheumatoid Factor Complement C4 Miscellaneous Test Crossmatch 11/24/16 11/24/16 11/24/16 06:43 08:08 08:08 WBC 11.2 H RBC 2.47 L Hgb 6.8 L Hct 20.6 L MCV MCH MCHC RDW 17.0 H Plt Count Lymph % (Auto) [place] % (Auto) 10.3 H Lymph # [place] # 1.2 H Baso # Seg Neutrophils % Seg Neuts % (Manual) Lymphocytes % (Manual) Monocytes % (Manual) Eosinophils % (Manual) Basophils % (Manual) Nucleated RBC % Seg Neutrophils # Seg Neutrophils # Man Lymphocytes # (Manual) Monocytes # (Manual) Eosinophils # (Manual) Basophils # (Manual) PT INR Fibrinogen dRVVT Confirm Interp Factor V Activity POC ABG pH POC ABG pCO2 POC ABG pO2 ABG pO2 ABG HCO3 ABG Base Excess ABG Hemoglobin Oxyhemoglobin Sodium 135 L Potassium Chloride 96.3 L Carbon Dioxide BUN 61 H Creatinine 3.1 H Glucose POC Glucose 62 L Lactic Acid Calcium 8.2 L Ionized Calcium Phosphorus Magnesium Direct Bilirubin AST ALT Alkaline Phosphatase Lactate Dehydrogenase Troponin T C-Reactive Protein Total Protein Albumin Prealbumin Triglycerides Cholesterol LDL Cholesterol Direct HDL Cholesterol 25-OH Vitamin D Total PTH Intact Urine pH Urine WBC (Auto) Urine Creatinine Urine Total Protein Fluid Total Protein Vancomycin Trough Rheumatoid Factor Complement C4 Miscellaneous Test Crossmatch 11/24/16 11/24/16 11/24/16 08:34 11:20 12:41 WBC RBC Hgb Hct MCV MCH MCHC RDW Plt Count Lymph % (Auto) [place] % (Auto) Lymph # [place] # Baso # Seg Neutrophils % Seg Neuts % (Manual) Lymphocytes % (Manual) Monocytes % (Manual) Eosinophils % (Manual) Basophils % (Manual) Nucleated RBC % Seg Neutrophils # Seg Neutrophils # Man Lymphocytes # (Manual) Monocytes # (Manual) Eosinophils # (Manual) Basophils # (Manual) PT INR Fibrinogen dRVVT Confirm Interp Factor V Activity POC ABG pH POC ABG pCO2 POC ABG pO2 ABG pO2 ABG HCO3 ABG Base Excess ABG Hemoglobin Oxyhemoglobin Sodium Potassium Chloride Carbon Dioxide BUN Creatinine Glucose POC Glucose 108 H Lactic Acid Calcium Ionized Calcium Phosphorus Magnesium 1.60 L Direct Bilirubin AST ALT Alkaline Phosphatase Lactate Dehydrogenase Troponin T C-Reactive Protein Total Protein Albumin Prealbumin Triglycerides Cholesterol LDL Cholesterol Direct HDL Cholesterol 25-OH Vitamin D Total PTH Intact Urine pH Urine WBC (Auto) Urine Creatinine Urine Total Protein Fluid Total Protein Vancomycin Trough Rheumatoid Factor Complement C4 Miscellaneous Test Crossmatch See Detail 11/25/16 11/25/16 11/25/16 00:03 04:42 04:42 WBC RBC 3.03 L Hgb 8.6 L Hct 25.3 L MCV MCH MCHC RDW 16.2 H Plt Count Lymph % (Auto) [place] % (Auto) 8.1 H Lymph # [place] # Baso # Seg Neutrophils % 71.3 H Seg Neuts % (Manual) Lymphocytes % (Manual) Monocytes % (Manual) Eosinophils % (Manual) Basophils % (Manual) Nucleated RBC % Seg Neutrophils # Seg Neutrophils # Man Lymphocytes # (Manual) Monocytes # (Manual) Eosinophils # (Manual) Basophils # (Manual) PT INR Fibrinogen dRVVT Confirm Interp Factor V Activity POC ABG pH POC ABG pCO2 POC ABG pO2 ABG pO2 ABG HCO3 ABG Base Excess ABG Hemoglobin Oxyhemoglobin Sodium Potassium Chloride Carbon Dioxide BUN 61 H Creatinine 3.0 H Glucose 102 H POC Glucose 113 H Lactic Acid Calcium 8.2 L Ionized Calcium Phosphorus Magnesium Direct Bilirubin AST ALT Alkaline Phosphatase 142 H Lactate Dehydrogenase Troponin T C-Reactive Protein Total Protein 5.7 L Albumin 1.5 L Prealbumin Triglycerides Cholesterol LDL Cholesterol Direct HDL Cholesterol 25-OH Vitamin D Total PTH Intact Urine pH Urine WBC (Auto) Urine Creatinine Urine Total Protein Fluid Total Protein Vancomycin Trough Rheumatoid Factor Complement C4 Miscellaneous Test Crossmatch 11/25/16 11/25/16 11/25/16 05:12 11:31 14:12 WBC RBC Hgb Hct MCV MCH MCHC RDW Plt Count Lymph % (Auto) [place] % (Auto) Lymph # [place] # Baso # Seg Neutrophils % Seg Neuts % (Manual) Lymphocytes % (Manual) Monocytes % (Manual) Eosinophils % (Manual) Basophils % (Manual) Nucleated RBC % Seg Neutrophils # Seg Neutrophils # Man Lymphocytes # (Manual) Monocytes # (Manual) Eosinophils # (Manual) Basophils # (Manual) PT INR Fibrinogen dRVVT Confirm Interp Factor V Activity POC ABG pH 7.487 H POC ABG pCO2 POC ABG pO2 153 H ABG pO2 ABG HCO3 ABG Base Excess ABG Hemoglobin Oxyhemoglobin Sodium Potassium Chloride Carbon Dioxide BUN Creatinine Glucose POC Glucose 131 H 140 H Lactic Acid Calcium Ionized Calcium Phosphorus Magnesium Direct Bilirubin AST ALT Alkaline Phosphatase Lactate Dehydrogenase Troponin T C-Reactive Protein Total Protein Albumin Prealbumin Triglycerides Cholesterol LDL Cholesterol Direct HDL Cholesterol 25-OH Vitamin D Total PTH Intact Urine pH Urine WBC (Auto) Urine Creatinine Urine Total Protein Fluid Total Protein Vancomycin Trough Rheumatoid Factor Complement C4 Miscellaneous Test Crossmatch 11/25/16 11/26/16 11/26/16 17:23 00:09 05:13 WBC RBC 2.94 L Hgb 8.4 L Hct 24.6 L MCV MCH MCHC RDW 16.4 H Plt Count Lymph % (Auto) [place] % (Auto) 12.3 H Lymph # [place] # 1.1 H Baso # Seg Neutrophils % Seg Neuts % (Manual) Lymphocytes % (Manual) Monocytes % (Manual) Eosinophils % (Manual) Basophils % (Manual) Nucleated RBC % Seg Neutrophils # Seg Neutrophils # Man Lymphocytes # (Manual) Monocytes # (Manual) Eosinophils # (Manual) Basophils # (Manual) PT INR Fibrinogen dRVVT Confirm Interp Factor V Activity POC ABG pH POC ABG pCO2 POC ABG pO2 ABG pO2 ABG HCO3 ABG Base Excess ABG Hemoglobin Oxyhemoglobin Sodium Potassium Chloride Carbon Dioxide BUN Creatinine Glucose POC Glucose 146 H 112 H Lactic Acid Calcium Ionized Calcium Phosphorus Magnesium Direct Bilirubin AST ALT Alkaline Phosphatase Lactate Dehydrogenase Troponin T C-Reactive Protein Total Protein Albumin Prealbumin Triglycerides Cholesterol LDL Cholesterol Direct HDL Cholesterol 25-OH Vitamin D Total PTH Intact Urine pH Urine WBC (Auto) Urine Creatinine Urine Total Protein Fluid Total Protein Vancomycin Trough Rheumatoid Factor Complement C4 Miscellaneous Test Crossmatch 11/26/16 11/26/16 11/26/16 05:13 05:28 11:53 WBC RBC Hgb Hct MCV MCH MCHC RDW Plt Count Lymph % (Auto) [place] % (Auto) Lymph # [place] # Baso # Seg Neutrophils % Seg Neuts % (Manual) Lymphocytes % (Manual) Monocytes % (Manual) Eosinophils % (Manual) Basophils % (Manual) Nucleated RBC % Seg Neutrophils # Seg Neutrophils # Man Lymphocytes # (Manual) Monocytes # (Manual) Eosinophils # (Manual) Basophils # (Manual) PT INR Fibrinogen dRVVT Confirm Interp Factor V Activity POC ABG pH POC ABG pCO2 POC ABG pO2 ABG pO2 ABG HCO3 ABG Base Excess ABG Hemoglobin Oxyhemoglobin Sodium Potassium Chloride 97.8 L Carbon Dioxide BUN 37 H Creatinine 2.0 H Glucose 109 H POC Glucose 117 H 111 H Lactic Acid Calcium 7.9 L Ionized Calcium Phosphorus 1.80 L D Magnesium Direct Bilirubin AST ALT Alkaline Phosphatase Lactate Dehydrogenase Troponin T C-Reactive Protein Total Protein Albumin Prealbumin Triglycerides Cholesterol LDL Cholesterol Direct HDL Cholesterol 25-OH Vitamin D Total PTH Intact Urine pH Urine WBC (Auto) Urine Creatinine Urine Total Protein Fluid Total Protein Vancomycin Trough Rheumatoid Factor Complement C4 Miscellaneous Test Crossmatch 11/26/16 11/27/16 11/27/16 17:14 04:50 06:02 WBC RBC Hgb Hct MCV MCH MCHC RDW Plt Count Lymph % (Auto) [place] % (Auto) Lymph # [place] # Baso # Seg Neutrophils % Seg Neuts % (Manual) Lymphocytes % (Manual) Monocytes % (Manual) Eosinophils % (Manual) Basophils % (Manual) Nucleated RBC % Seg Neutrophils # Seg Neutrophils # Man Lymphocytes # (Manual) Monocytes # (Manual) Eosinophils # (Manual) Basophils # (Manual) PT INR Fibrinogen dRVVT Confirm Interp Factor V Activity POC ABG pH POC ABG pCO2 POC ABG pO2 ABG pO2 75.2 L ABG HCO3 26.4 H ABG Base Excess ABG Hemoglobin 7.6 L Oxyhemoglobin 94.8 L Sodium Potassium Chloride Carbon Dioxide BUN 49 H Creatinine 2.3 H Glucose POC Glucose 115 H Lactic Acid Calcium Ionized Calcium Phosphorus 1.50 L Magnesium Direct Bilirubin AST ALT Alkaline Phosphatase Lactate Dehydrogenase Troponin T C-Reactive Protein Total Protein Albumin Prealbumin Triglycerides Cholesterol LDL Cholesterol Direct HDL Cholesterol 25-OH Vitamin D Total PTH Intact Urine pH Urine WBC (Auto) Urine Creatinine Urine Total Protein Fluid Total Protein Vancomycin Trough Rheumatoid Factor Complement C4 Miscellaneous Test Crossmatch 11/27/16 11/27/16 11/27/16 06:02 11:25 17:25 WBC 11.6 H RBC 2.75 L Hgb 7.6 L Hct 23.4 L MCV MCH MCHC RDW 16.5 H Plt Count Lymph % (Auto) [place] % (Auto) Lymph # [place] # Baso # Seg Neutrophils % Seg Neuts % (Manual) Lymphocytes % (Manual) Monocytes % (Manual) Eosinophils % (Manual) Basophils % (Manual) Nucleated RBC % Seg Neutrophils # Seg Neutrophils # Man Lymphocytes # (Manual) Monocytes # (Manual) Eosinophils # (Manual) Basophils # (Manual) PT INR Fibrinogen dRVVT Confirm Interp Factor V Activity POC ABG pH POC ABG pCO2 POC ABG pO2 ABG pO2 ABG HCO3 ABG Base Excess ABG Hemoglobin Oxyhemoglobin Sodium Potassium Chloride Carbon Dioxide BUN Creatinine Glucose POC Glucose 114 H 126 H Lactic Acid Calcium Ionized Calcium Phosphorus Magnesium Direct Bilirubin AST ALT Alkaline Phosphatase Lactate Dehydrogenase Troponin T C-Reactive Protein Total Protein Albumin Prealbumin Triglycerides Cholesterol LDL Cholesterol Direct HDL Cholesterol 25-OH Vitamin D Total PTH Intact Urine pH Urine WBC (Auto) Urine Creatinine Urine Total Protein Fluid Total Protein Vancomycin Trough Rheumatoid Factor Complement C4 Miscellaneous Test Crossmatch 11/28/16 11/28/16 11/28/16 04:45 05:33 05:44 WBC RBC Hgb Hct MCV MCH MCHC RDW Plt Count Lymph % (Auto) [place] % (Auto) Lymph # [place] # Baso # Seg Neutrophils % Seg Neuts % (Manual) Lymphocytes % (Manual) Monocytes % (Manual) Eosinophils % (Manual) Basophils % (Manual) Nucleated RBC % Seg Neutrophils # Seg Neutrophils # Man Lymphocytes # (Manual) Monocytes # (Manual) Eosinophils # (Manual) Basophils # (Manual) PT INR Fibrinogen dRVVT Confirm Interp Factor V Activity POC ABG pH POC ABG pCO2 POC ABG pO2 ABG pO2 99.3 H ABG HCO3 ABG Base Excess ABG Hemoglobin 8.3 L Oxyhemoglobin Sodium Potassium Chloride Carbon Dioxide BUN 63 H Creatinine 2.4 H Glucose 102 H POC Glucose 108 H Lactic Acid Calcium Ionized Calcium Phosphorus 1.80 L Magnesium Direct Bilirubin AST ALT Alkaline Phosphatase Lactate Dehydrogenase Troponin T C-Reactive Protein Total Protein Albumin Prealbumin Triglycerides Cholesterol LDL Cholesterol Direct HDL Cholesterol 25-OH Vitamin D Total PTH Intact Urine pH Urine WBC (Auto) Urine Creatinine Urine Total Protein Fluid Total Protein Vancomycin Trough Rheumatoid Factor Complement C4 Miscellaneous Test Crossmatch 11/28/16 11/28/16 11/28/16 12:31 16:09 23:46 WBC RBC Hgb Hct MCV MCH MCHC RDW Plt Count Lymph % (Auto) [place] % (Auto) Lymph # [place] # Baso # Seg Neutrophils % Seg Neuts % (Manual) Lymphocytes % (Manual) Monocytes % (Manual) Eosinophils % (Manual) Basophils % (Manual) Nucleated RBC % Seg Neutrophils # Seg Neutrophils # Man Lymphocytes # (Manual) Monocytes # (Manual) Eosinophils # (Manual) Basophils # (Manual) PT INR Fibrinogen dRVVT Confirm Interp Factor V Activity POC ABG pH POC ABG pCO2 POC ABG pO2 ABG pO2 ABG HCO3 ABG Base Excess ABG Hemoglobin Oxyhemoglobin Sodium Potassium Chloride Carbon Dioxide BUN Creatinine Glucose POC Glucose 126 H 111 H 119 H Lactic Acid Calcium Ionized Calcium Phosphorus Magnesium Direct Bilirubin AST ALT Alkaline Phosphatase Lactate Dehydrogenase Troponin T C-Reactive Protein Total Protein Albumin Prealbumin Triglycerides Cholesterol LDL Cholesterol Direct HDL Cholesterol 25-OH Vitamin D Total PTH Intact Urine pH Urine WBC (Auto) Urine Creatinine Urine Total Protein Fluid Total Protein Vancomycin Trough Rheumatoid Factor Complement C4 Miscellaneous Test Crossmatch 11/29/16 11/29/16 11/29/16 03:33 04:52 05:10 WBC RBC Hgb Hct MCV MCH MCHC RDW Plt Count Lymph % (Auto) [place] % (Auto) Lymph # [place] # Baso # Seg Neutrophils % Seg Neuts % (Manual) Lymphocytes % (Manual) Monocytes % (Manual) Eosinophils % (Manual) Basophils % (Manual) Nucleated RBC % Seg Neutrophils # Seg Neutrophils # Man Lymphocytes # (Manual) Monocytes # (Manual) Eosinophils # (Manual) Basophils # (Manual) PT INR Fibrinogen dRVVT Confirm Interp Factor V Activity POC ABG pH POC ABG pCO2 POC ABG pO2 ABG pO2 ABG HCO3 ABG Base Excess ABG Hemoglobin 7.0 L Oxyhemoglobin 94.9 L Sodium Potassium Chloride Carbon Dioxide BUN 73 H Creatinine 2.7 H Glucose POC Glucose 108 H Lactic Acid Calcium Ionized Calcium Phosphorus Magnesium Direct Bilirubin AST ALT Alkaline Phosphatase Lactate Dehydrogenase Troponin T C-Reactive Protein Total Protein Albumin Prealbumin Triglycerides Cholesterol LDL Cholesterol Direct HDL Cholesterol 25-OH Vitamin D Total PTH Intact Urine pH Urine WBC (Auto) Urine Creatinine Urine Total Protein Fluid Total Protein Vancomycin Trough Rheumatoid Factor Complement C4 Miscellaneous Test Crossmatch 11/29/16 11/29/16 11/29/16 12:16 18:05 23:46 WBC RBC Hgb Hct MCV MCH MCHC RDW Plt Count Lymph % (Auto) [place] % (Auto) Lymph # [place] # Baso # Seg Neutrophils % Seg Neuts % (Manual) Lymphocytes % (Manual) Monocytes % (Manual) Eosinophils % (Manual) Basophils % (Manual) Nucleated RBC % Seg Neutrophils # Seg Neutrophils # Man Lymphocytes # (Manual) Monocytes # (Manual) Eosinophils # (Manual) Basophils # (Manual) PT INR Fibrinogen dRVVT Confirm Interp Factor V Activity POC ABG pH POC ABG pCO2 POC ABG pO2 ABG pO2 ABG HCO3 ABG Base Excess ABG Hemoglobin Oxyhemoglobin Sodium Potassium Chloride Carbon Dioxide BUN Creatinine Glucose POC Glucose 133 H 146 H 141 H Lactic Acid Calcium Ionized Calcium Phosphorus Magnesium Direct Bilirubin AST ALT Alkaline Phosphatase Lactate Dehydrogenase Troponin T C-Reactive Protein Total Protein Albumin Prealbumin Triglycerides Cholesterol LDL Cholesterol Direct HDL Cholesterol 25-OH Vitamin D Total PTH Intact Urine pH Urine WBC (Auto) Urine Creatinine Urine Total Protein Fluid Total Protein Vancomycin Trough Rheumatoid Factor Complement C4 Miscellaneous Test Crossmatch 11/30/16 11/30/16 11/30/16 04:17 04:17 04:32 WBC 12.0 H RBC 2.80 L Hgb 7.8 L Hct 23.6 L MCV MCH MCHC RDW 16.6 H Plt Count Lymph % (Auto) [place] % (Auto) 11.3 H Lymph # [place] # 1.4 H Baso # Seg Neutrophils % Seg Neuts % (Manual) Lymphocytes % (Manual) Monocytes % (Manual) Eosinophils % (Manual) Basophils % (Manual) Nucleated RBC % Seg Neutrophils # 8.2 H Seg Neutrophils # Man Lymphocytes # (Manual) Monocytes # (Manual) Eosinophils # (Manual) Basophils # (Manual) PT INR Fibrinogen dRVVT Confirm Interp Factor V Activity POC ABG pH POC ABG pCO2 POC ABG pO2 ABG pO2 ABG HCO3 ABG Base Excess ABG Hemoglobin Oxyhemoglobin Sodium 169 H* D Potassium 5.1 H Chloride 121.5 H Carbon Dioxide BUN 34 H Creatinine 1.3 H D Glucose 133 H POC Glucose 131 H Lactic Acid Calcium 10.3 H Ionized Calcium Phosphorus Magnesium Direct Bilirubin AST ALT Alkaline Phosphatase Lactate Dehydrogenase Troponin T C-Reactive Protein Total Protein Albumin Prealbumin Triglycerides Cholesterol LDL Cholesterol Direct HDL Cholesterol 25-OH Vitamin D Total PTH Intact Urine pH Urine WBC (Auto) Urine Creatinine Urine Total Protein Fluid Total Protein Vancomycin Trough Rheumatoid Factor Complement C4 Miscellaneous Test Crossmatch 11/30/16 11/30/16 11/30/16 05:45 11:10 17:26 WBC RBC Hgb Hct MCV MCH MCHC RDW Plt Count Lymph % (Auto) [place] % (Auto) Lymph # [place] # Baso # Seg Neutrophils % Seg Neuts % (Manual) Lymphocytes % (Manual) Monocytes % (Manual) Eosinophils % (Manual) Basophils % (Manual) Nucleated RBC % Seg Neutrophils # Seg Neutrophils # Man Lymphocytes # (Manual) Monocytes # (Manual) Eosinophils # (Manual) Basophils # (Manual) PT INR Fibrinogen dRVVT Confirm Interp Factor V Activity POC ABG pH POC ABG pCO2 POC ABG pO2 ABG pO2 ABG HCO3 ABG Base Excess ABG Hemoglobin Oxyhemoglobin Sodium Potassium Chloride Carbon Dioxide BUN 45 H Creatinine 1.6 H Glucose 131 H POC Glucose 146 H 134 H Lactic Acid Calcium Ionized Calcium Phosphorus Magnesium Direct Bilirubin AST ALT Alkaline Phosphatase Lactate Dehydrogenase Troponin T C-Reactive Protein Total Protein Albumin Prealbumin Triglycerides Cholesterol LDL Cholesterol Direct HDL Cholesterol 25-OH Vitamin D Total PTH Intact Urine pH Urine WBC (Auto) Urine Creatinine Urine Total Protein Fluid Total Protein Vancomycin Trough Rheumatoid Factor Complement C4 Miscellaneous Test Crossmatch 11/30/16 12/01/16 12/01/16 23:35 00:06 03:35 WBC RBC Hgb Hct MCV MCH MCHC RDW Plt Count Lymph % (Auto) [place] % (Auto) Lymph # [place] # Baso # Seg Neutrophils % Seg Neuts % (Manual) Lymphocytes % (Manual) Monocytes % (Manual) Eosinophils % (Manual) Basophils % (Manual) Nucleated RBC % Seg Neutrophils # Seg Neutrophils # Man Lymphocytes # (Manual) Monocytes # (Manual) Eosinophils # (Manual) Basophils # (Manual) PT INR Fibrinogen dRVVT Confirm Interp Factor V Activity POC ABG pH POC ABG pCO2 POC ABG pO2 ABG pO2 ABG HCO3 ABG Base Excess ABG Hemoglobin 6.9 L Oxyhemoglobin Sodium Potassium Chloride Carbon Dioxide BUN 58 H Creatinine 1.8 H Glucose 146 H POC Glucose 151 H Lactic Acid Calcium Ionized Calcium Phosphorus Magnesium Direct Bilirubin AST ALT Alkaline Phosphatase Lactate Dehydrogenase Troponin T C-Reactive Protein Total Protein Albumin Prealbumin Triglycerides Cholesterol LDL Cholesterol Direct HDL Cholesterol 25-OH Vitamin D Total PTH Intact Urine pH Urine WBC (Auto) Urine Creatinine Urine Total Protein Fluid Total Protein Vancomycin Trough Rheumatoid Factor Complement C4 Miscellaneous Test Crossmatch 12/01/16 12/01/16 12/01/16 03:35 05:47 11:52 WBC 12.3 H RBC 2.82 L Hgb 7.8 L Hct 23.7 L MCV MCH MCHC RDW 16.7 H Plt Count Lymph % (Auto) [place] % (Auto) 9.8 H Lymph # [place] # 1.2 H Baso # Seg Neutrophils % Seg Neuts % (Manual) Lymphocytes % (Manual) Monocytes % (Manual) Eosinophils % (Manual) Basophils % (Manual) Nucleated RBC % Seg Neutrophils # 8.4 H Seg Neutrophils # Man Lymphocytes # (Manual) Monocytes # (Manual) Eosinophils # (Manual) Basophils # (Manual) PT INR Fibrinogen dRVVT Confirm Interp Factor V Activity POC ABG pH POC ABG pCO2 POC ABG pO2 ABG pO2 ABG HCO3 ABG Base Excess ABG Hemoglobin Oxyhemoglobin Sodium Potassium Chloride Carbon Dioxide BUN Creatinine Glucose POC Glucose 152 H 152 H Lactic Acid Calcium Ionized Calcium Phosphorus Magnesium Direct Bilirubin AST ALT Alkaline Phosphatase Lactate Dehydrogenase Troponin T C-Reactive Protein Total Protein Albumin Prealbumin Triglycerides Cholesterol LDL Cholesterol Direct HDL Cholesterol 25-OH Vitamin D Total PTH Intact Urine pH Urine WBC (Auto) Urine Creatinine Urine Total Protein Fluid Total Protein Vancomycin Trough Rheumatoid Factor Complement C4 Miscellaneous Test Crossmatch 12/01/16 12/01/16 12/02/16 17:40 23:41 05:00 WBC RBC Hgb Hct MCV MCH MCHC RDW Plt Count Lymph % (Auto) [place] % (Auto) Lymph # [place] # Baso # Seg Neutrophils % Seg Neuts % (Manual) Lymphocytes % (Manual) Monocytes % (Manual) Eosinophils % (Manual) Basophils % (Manual) Nucleated RBC % Seg Neutrophils # Seg Neutrophils # Man Lymphocytes # (Manual) Monocytes # (Manual) Eosinophils # (Manual) Basophils # (Manual) PT INR Fibrinogen dRVVT Confirm Interp Factor V Activity POC ABG pH POC ABG pCO2 POC ABG pO2 ABG pO2 ABG HCO3 ABG Base Excess ABG Hemoglobin Oxyhemoglobin Sodium Potassium Chloride Carbon Dioxide BUN 45 H Creatinine Glucose 115 H POC Glucose 140 H 144 H Lactic Acid Calcium Ionized Calcium Phosphorus Magnesium Direct Bilirubin AST ALT Alkaline Phosphatase Lactate Dehydrogenase Troponin T C-Reactive Protein Total Protein Albumin Prealbumin Triglycerides Cholesterol LDL Cholesterol Direct HDL Cholesterol 25-OH Vitamin D Total PTH Intact Urine pH Urine WBC (Auto) Urine Creatinine Urine Total Protein Fluid Total Protein Vancomycin Trough Rheumatoid Factor Complement C4 Miscellaneous Test Crossmatch 12/02/16 12/02/16 12/02/16 05:31 11:20 17:38 WBC RBC Hgb Hct MCV MCH MCHC RDW Plt Count Lymph % (Auto) [place] % (Auto) Lymph # [place] # Baso # Seg Neutrophils % Seg Neuts % (Manual) Lymphocytes % (Manual) Monocytes % (Manual) Eosinophils % (Manual) Basophils % (Manual) Nucleated RBC % Seg Neutrophils # Seg Neutrophils # Man Lymphocytes # (Manual) Monocytes # (Manual) Eosinophils # (Manual) Basophils # (Manual) PT INR Fibrinogen dRVVT Confirm Interp Factor V Activity POC ABG pH POC ABG pCO2 POC ABG pO2 ABG pO2 ABG HCO3 ABG Base Excess ABG Hemoglobin Oxyhemoglobin Sodium Potassium Chloride Carbon Dioxide BUN Creatinine Glucose POC Glucose 136 H 177 H 139 H Lactic Acid Calcium Ionized Calcium Phosphorus Magnesium Direct Bilirubin AST ALT Alkaline Phosphatase Lactate Dehydrogenase Troponin T C-Reactive Protein Total Protein Albumin Prealbumin Triglycerides Cholesterol LDL Cholesterol Direct HDL Cholesterol 25-OH Vitamin D Total PTH Intact Urine pH Urine WBC (Auto) Urine Creatinine Urine Total Protein Fluid Total Protein Vancomycin Trough Rheumatoid Factor Complement C4 Miscellaneous Test Crossmatch 12/02/16 12/03/16 12/03/16 23:43 04:00 04:00 WBC 20.4 H RBC 2.74 L Hgb 7.4 L Hct 23.6 L MCV MCH 27 L MCHC RDW 17.1 H Plt Count Lymph % (Auto) [place] % (Auto) Lymph # [place] # Baso # Seg Neutrophils % Seg Neuts % (Manual) 31.0 L Lymphocytes % (Manual) Monocytes % (Manual) Eosinophils % (Manual) Basophils % (Manual) Nucleated RBC % Seg Neutrophils # Seg Neutrophils # Man Lymphocytes # (Manual) Monocytes # (Manual) Eosinophils # (Manual) Basophils # (Manual) PT INR Fibrinogen dRVVT Confirm Interp Factor V Activity POC ABG pH POC ABG pCO2 POC ABG pO2 ABG pO2 ABG HCO3 ABG Base Excess ABG Hemoglobin Oxyhemoglobin Sodium Potassium Chloride Carbon Dioxide BUN 61 H Creatinine 1.6 H Glucose 119 H POC Glucose 158 H Lactic Acid Calcium Ionized Calcium Phosphorus Magnesium Direct Bilirubin AST ALT Alkaline Phosphatase Lactate Dehydrogenase Troponin T C-Reactive Protein Total Protein Albumin Prealbumin Triglycerides Cholesterol LDL Cholesterol Direct HDL Cholesterol 25-OH Vitamin D Total PTH Intact Urine pH Urine WBC (Auto) Urine Creatinine Urine Total Protein Fluid Total Protein Vancomycin Trough Rheumatoid Factor Complement C4 Miscellaneous Test Crossmatch 12/03/16 12/03/16 12/03/16 05:02 12:11 18:16 WBC RBC Hgb Hct MCV MCH MCHC RDW Plt Count Lymph % (Auto) [place] % (Auto) Lymph # [place] # Baso # Seg Neutrophils % Seg Neuts % (Manual) Lymphocytes % (Manual) Monocytes % (Manual) Eosinophils % (Manual) Basophils % (Manual) Nucleated RBC % Seg Neutrophils # Seg Neutrophils # Man Lymphocytes # (Manual) Monocytes # (Manual) Eosinophils # (Manual) Basophils # (Manual) PT INR Fibrinogen dRVVT Confirm Interp Factor V Activity POC ABG pH POC ABG pCO2 POC ABG pO2 ABG pO2 ABG HCO3 ABG Base Excess ABG Hemoglobin Oxyhemoglobin Sodium Potassium Chloride Carbon Dioxide BUN Creatinine Glucose POC Glucose 146 H 157 H 124 H Lactic Acid Calcium Ionized Calcium Phosphorus Magnesium Direct Bilirubin AST ALT Alkaline Phosphatase Lactate Dehydrogenase Troponin T C-Reactive Protein Total Protein Albumin Prealbumin Triglycerides Cholesterol LDL Cholesterol Direct HDL Cholesterol 25-OH Vitamin D Total PTH Intact Urine pH Urine WBC (Auto) Urine Creatinine Urine Total Protein Fluid Total Protein Vancomycin Trough Rheumatoid Factor Complement C4 Miscellaneous Test Crossmatch 12/03/16 12/04/16 12/04/16 23:41 04:00 04:45 WBC RBC Hgb Hct MCV MCH MCHC RDW Plt Count Lymph % (Auto) [place] % (Auto) Lymph # [place] # Baso # Seg Neutrophils % Seg Neuts % (Manual) Lymphocytes % (Manual) Monocytes % (Manual) Eosinophils % (Manual) Basophils % (Manual) Nucleated RBC % Seg Neutrophils # Seg Neutrophils # Man Lymphocytes # (Manual) Monocytes # (Manual) Eosinophils # (Manual) Basophils # (Manual) PT INR Fibrinogen dRVVT Confirm Interp Factor V Activity POC ABG pH POC ABG pCO2 POC ABG pO2 ABG pO2 ABG HCO3 ABG Base Excess ABG Hemoglobin Oxyhemoglobin Sodium Potassium Chloride Carbon Dioxide BUN 76 H Creatinine 1.6 H Glucose POC Glucose 130 H 136 H Lactic Acid Calcium Ionized Calcium Phosphorus Magnesium Direct Bilirubin AST ALT Alkaline Phosphatase 155 H Lactate Dehydrogenase Troponin T C-Reactive Protein Total Protein 5.5 L Albumin 1.5 L Prealbumin Triglycerides Cholesterol LDL Cholesterol Direct HDL Cholesterol 25-OH Vitamin D Total PTH Intact Urine pH Urine WBC (Auto) Urine Creatinine Urine Total Protein Fluid Total Protein Vancomycin Trough Rheumatoid Factor Complement C4 Miscellaneous Test Crossmatch 12/04/16 12/04/16 12/05/16 12:08 17:23 00:10 WBC RBC Hgb Hct MCV MCH MCHC RDW Plt Count Lymph % (Auto) [place] % (Auto) Lymph # [place] # Baso # Seg Neutrophils % Seg Neuts % (Manual) Lymphocytes % (Manual) Monocytes % (Manual) Eosinophils % (Manual) Basophils % (Manual) Nucleated RBC % Seg Neutrophils # Seg Neutrophils # Man Lymphocytes # (Manual) Monocytes # (Manual) Eosinophils # (Manual) Basophils # (Manual) PT INR Fibrinogen dRVVT Confirm Interp Factor V Activity POC ABG pH POC ABG pCO2 POC ABG pO2 ABG pO2 ABG HCO3 ABG Base Excess ABG Hemoglobin Oxyhemoglobin Sodium Potassium Chloride Carbon Dioxide BUN Creatinine Glucose POC Glucose 114 H 129 H 124 H Lactic Acid Calcium Ionized Calcium Phosphorus Magnesium Direct Bilirubin AST ALT Alkaline Phosphatase Lactate Dehydrogenase Troponin T C-Reactive Protein Total Protein Albumin Prealbumin Triglycerides Cholesterol LDL Cholesterol Direct HDL Cholesterol 25-OH Vitamin D Total PTH Intact Urine pH Urine WBC (Auto) Urine Creatinine Urine Total Protein Fluid Total Protein Vancomycin Trough Rheumatoid Factor Complement C4 Miscellaneous Test Crossmatch 12/05/16 12/05/16 12/05/16 05:00 05:00 05:18 WBC RBC Hgb Hct MCV MCH MCHC RDW Plt Count Lymph % (Auto) [place] % (Auto) Lymph # [place] # Baso # Seg Neutrophils % Seg Neuts % (Manual) Lymphocytes % (Manual) Monocytes % (Manual) Eosinophils % (Manual) Basophils % (Manual) Nucleated RBC % Seg Neutrophils # Seg Neutrophils # Man Lymphocytes # (Manual) Monocytes # (Manual) Eosinophils # (Manual) Basophils # (Manual) PT INR Fibrinogen dRVVT Confirm Interp Factor V Activity POC ABG pH POC ABG pCO2 POC ABG pO2 ABG pO2 ABG HCO3 ABG Base Excess ABG Hemoglobin Oxyhemoglobin Sodium Potassium Chloride Carbon Dioxide 21 L BUN 85 H Creatinine 1.9 H Glucose 131 H POC Glucose 154 H Lactic Acid Calcium Ionized Calcium Phosphorus Magnesium Direct Bilirubin AST ALT Alkaline Phosphatase Lactate Dehydrogenase Troponin T C-Reactive Protein 19.30 H Total Protein Albumin Prealbumin Triglycerides Cholesterol LDL Cholesterol Direct HDL Cholesterol 25-OH Vitamin D Total PTH Intact Urine pH Urine WBC (Auto) Urine Creatinine Urine Total Protein Fluid Total Protein Vancomycin Trough Rheumatoid Factor Complement C4 Miscellaneous Test Crossmatch 12/05/16 12/05/16 12/05/16 11:43 17:46 23:25 WBC RBC Hgb Hct MCV MCH MCHC RDW Plt Count Lymph % (Auto) [place] % (Auto) Lymph # [place] # Baso # Seg Neutrophils % Seg Neuts % (Manual) Lymphocytes % (Manual) Monocytes % (Manual) Eosinophils % (Manual) Basophils % (Manual) Nucleated RBC % Seg Neutrophils # Seg Neutrophils # Man Lymphocytes # (Manual) Monocytes # (Manual) Eosinophils # (Manual) Basophils # (Manual) PT INR Fibrinogen dRVVT Confirm Interp Factor V Activity POC ABG pH POC ABG pCO2 POC ABG pO2 ABG pO2 ABG HCO3 ABG Base Excess ABG Hemoglobin Oxyhemoglobin Sodium Potassium Chloride Carbon Dioxide BUN Creatinine Glucose POC Glucose 117 H 113 H 111 H Lactic Acid Calcium Ionized Calcium Phosphorus Magnesium Direct Bilirubin AST ALT Alkaline Phosphatase Lactate Dehydrogenase Troponin T C-Reactive Protein Total Protein Albumin Prealbumin Triglycerides Cholesterol LDL Cholesterol Direct HDL Cholesterol 25-OH Vitamin D Total PTH Intact Urine pH Urine WBC (Auto) Urine Creatinine Urine Total Protein Fluid Total Protein Vancomycin Trough Rheumatoid Factor Complement C4 Miscellaneous Test Crossmatch 12/05/16 12/06/16 12/06/16 Unknown 04:58 06:00 WBC RBC Hgb Hct MCV MCH MCHC RDW Plt Count Lymph % (Auto) [place] % (Auto) Lymph # [place] # Baso # Seg Neutrophils % Seg Neuts % (Manual) Lymphocytes % (Manual) Monocytes % (Manual) Eosinophils % (Manual) Basophils % (Manual) Nucleated RBC % Seg Neutrophils # Seg Neutrophils # Man Lymphocytes # (Manual) Monocytes # (Manual) Eosinophils # (Manual) Basophils # (Manual) PT INR Fibrinogen dRVVT Confirm Interp Factor V Activity POC ABG pH POC ABG pCO2 POC ABG pO2 ABG pO2 75.2 L ABG HCO3 ABG Base Excess -3.4 L ABG Hemoglobin 7.4 L Oxyhemoglobin 94.5 L Sodium Potassium Chloride Carbon Dioxide 20 L BUN 99 H Creatinine 2.1 H Glucose 126 H POC Glucose 145 H Lactic Acid Calcium Ionized Calcium Phosphorus 4.80 H Magnesium Direct Bilirubin AST ALT Alkaline Phosphatase Lactate Dehydrogenase Troponin T C-Reactive Protein Total Protein Albumin Prealbumin Triglycerides Cholesterol LDL Cholesterol Direct HDL Cholesterol 25-OH Vitamin D Total PTH Intact Urine pH Urine WBC (Auto) Urine Creatinine Urine Total Protein Fluid Total Protein Vancomycin Trough Rheumatoid Factor Complement C4 Miscellaneous Test Crossmatch 12/06/16 12/06/16 12/06/16 06:46 11:54 17:55 WBC RBC Hgb 8.3 L Hct 26.4 L MCV MCH MCHC RDW Plt Count Lymph % (Auto) [place] % (Auto) Lymph # [place] # Baso # Seg Neutrophils % Seg Neuts % (Manual) Lymphocytes % (Manual) Monocytes % (Manual) Eosinophils % (Manual) Basophils % (Manual) Nucleated RBC % Seg Neutrophils # Seg Neutrophils # Man Lymphocytes # (Manual) Monocytes # (Manual) Eosinophils # (Manual) Basophils # (Manual) PT INR Fibrinogen dRVVT Confirm Interp Factor V Activity POC ABG pH POC ABG pCO2 POC ABG pO2 ABG pO2 ABG HCO3 ABG Base Excess ABG Hemoglobin Oxyhemoglobin Sodium Potassium Chloride Carbon Dioxide BUN Creatinine Glucose POC Glucose 126 H 157 H Lactic Acid Calcium Ionized Calcium Phosphorus Magnesium Direct Bilirubin AST ALT Alkaline Phosphatase Lactate Dehydrogenase Troponin T C-Reactive Protein Total Protein Albumin Prealbumin Triglycerides Cholesterol LDL Cholesterol Direct HDL Cholesterol 25-OH Vitamin D Total PTH Intact Urine pH Urine WBC (Auto) Urine Creatinine Urine Total Protein Fluid Total Protein Vancomycin Trough Rheumatoid Factor Complement C4 Miscellaneous Test Crossmatch 12/06/16 12/07/16 12/07/16 23:59 05:34 06:30 WBC RBC Hgb Hct MCV MCH MCHC RDW Plt Count Lymph % (Auto) [place] % (Auto) Lymph # [place] # Baso # Seg Neutrophils % Seg Neuts % (Manual) Lymphocytes % (Manual) Monocytes % (Manual) Eosinophils % (Manual) Basophils % (Manual) Nucleated RBC % Seg Neutrophils # Seg Neutrophils # Man Lymphocytes # (Manual) Monocytes # (Manual) Eosinophils # (Manual) Basophils # (Manual) PT INR Fibrinogen dRVVT Confirm Interp Factor V Activity POC ABG pH POC ABG pCO2 POC ABG pO2 ABG pO2 ABG HCO3 ABG Base Excess ABG Hemoglobin Oxyhemoglobin Sodium Potassium Chloride Carbon Dioxide BUN 67 H Creatinine 1.4 H Glucose 126 H POC Glucose 129 H 129 H Lactic Acid Calcium Ionized Calcium Phosphorus Magnesium Direct Bilirubin AST ALT Alkaline Phosphatase Lactate Dehydrogenase Troponin T C-Reactive Protein Total Protein Albumin Prealbumin Triglycerides Cholesterol LDL Cholesterol Direct HDL Cholesterol 25-OH Vitamin D Total PTH Intact Urine pH Urine WBC (Auto) Urine Creatinine Urine Total Protein Fluid Total Protein Vancomycin Trough Rheumatoid Factor Complement C4 Miscellaneous Test Crossmatch 12/07/16 12/07/16 12/07/16 06:30 08:00 09:45 WBC 18.8 H RBC 2.52 L Hgb 6.9 L 6.8 L Hct 21.2 L 21.1 L MCV MCH 27 L MCHC RDW 18.0 H Plt Count Lymph % (Auto) [place] % (Auto) 9.9 H Lymph # [place] # 1.9 H Baso # Seg Neutrophils % 71.8 H Seg Neuts % (Manual) Lymphocytes % (Manual) Monocytes % (Manual) Eosinophils % (Manual) Basophils % (Manual) Nucleated RBC % Seg Neutrophils # 13.5 H Seg Neutrophils # Man Lymphocytes # (Manual) Monocytes # (Manual) Eosinophils # (Manual) Basophils # (Manual) PT INR Fibrinogen dRVVT Confirm Interp Factor V Activity POC ABG pH POC ABG pCO2 POC ABG pO2 ABG pO2 ABG HCO3 ABG Base Excess ABG Hemoglobin Oxyhemoglobin Sodium Potassium Chloride Carbon Dioxide BUN Creatinine Glucose POC Glucose Lactic Acid Calcium Ionized Calcium Phosphorus Magnesium Direct Bilirubin AST ALT Alkaline Phosphatase Lactate Dehydrogenase Troponin T C-Reactive Protein Total Protein Albumin Prealbumin Triglycerides Cholesterol LDL Cholesterol Direct HDL Cholesterol 25-OH Vitamin D Total PTH Intact Urine pH Urine WBC (Auto) Urine Creatinine Urine Total Protein Fluid Total Protein Vancomycin Trough Rheumatoid Factor Complement C4 Miscellaneous Test Crossmatch See Detail 12/07/16 12/07/16 12/07/16 11:44 18:19 23:59 WBC RBC Hgb Hct MCV MCH MCHC RDW Plt Count Lymph % (Auto) [place] % (Auto) Lymph # [place] # Baso # Seg Neutrophils % Seg Neuts % (Manual) Lymphocytes % (Manual) Monocytes % (Manual) Eosinophils % (Manual) Basophils % (Manual) Nucleated RBC % Seg Neutrophils # Seg Neutrophils # Man Lymphocytes # (Manual) Monocytes # (Manual) Eosinophils # (Manual) Basophils # (Manual) PT INR Fibrinogen dRVVT Confirm Interp Factor V Activity POC ABG pH POC ABG pCO2 POC ABG pO2 ABG pO2 ABG HCO3 ABG Base Excess ABG Hemoglobin Oxyhemoglobin Sodium Potassium Chloride Carbon Dioxide BUN Creatinine Glucose POC Glucose 137 H 138 H 133 H Lactic Acid Calcium Ionized Calcium Phosphorus Magnesium Direct Bilirubin AST ALT Alkaline Phosphatase Lactate Dehydrogenase Troponin T C-Reactive Protein Total Protein Albumin Prealbumin Triglycerides Cholesterol LDL Cholesterol Direct HDL Cholesterol 25-OH Vitamin D Total PTH Intact Urine pH Urine WBC (Auto) Urine Creatinine Urine Total Protein Fluid Total Protein Vancomycin Trough Rheumatoid Factor Complement C4 Miscellaneous Test Crossmatch 12/08/16 12/08/16 12/08/16 05:25 05:30 05:30 WBC 23.8 H RBC 2.88 L Hgb 8.1 L Hct 24.3 L MCV MCH MCHC RDW 16.7 H Plt Count Lymph % (Auto) [place] % (Auto) Lymph # [place] # Baso # Seg Neutrophils % Seg Neuts % (Manual) 76.0 H Lymphocytes % (Manual) 9.0 L Monocytes % (Manual) 9.0 H Eosinophils % (Manual) Basophils % (Manual) Nucleated RBC % Seg Neutrophils # Seg Neutrophils # Man 18.1 H Lymphocytes # (Manual) Monocytes # (Manual) 2.1 H Eosinophils # (Manual) Basophils # (Manual) PT INR Fibrinogen dRVVT Confirm Interp Factor V Activity POC ABG pH POC ABG pCO2 POC ABG pO2 ABG pO2 ABG HCO3 ABG Base Excess ABG Hemoglobin Oxyhemoglobin Sodium Potassium Chloride Carbon Dioxide 21 L BUN 76 H Creatinine 1.6 H Glucose 133 H POC Glucose 177 H Lactic Acid Calcium Ionized Calcium Phosphorus Magnesium Direct Bilirubin AST ALT Alkaline Phosphatase Lactate Dehydrogenase Troponin T C-Reactive Protein Total Protein Albumin Prealbumin Triglycerides Cholesterol LDL Cholesterol Direct HDL Cholesterol 25-OH Vitamin D Total PTH Intact Urine pH Urine WBC (Auto) Urine Creatinine Urine Total Protein Fluid Total Protein Vancomycin Trough Rheumatoid Factor Complement C4 Miscellaneous Test Crossmatch 12/08/16 12/08/16 12/09/16 11:45 18:00 00:00 WBC RBC Hgb Hct MCV MCH MCHC RDW Plt Count Lymph % (Auto) [place] % (Auto) Lymph # [place] # Baso # Seg Neutrophils % Seg Neuts % (Manual) Lymphocytes % (Manual) Monocytes % (Manual) Eosinophils % (Manual) Basophils % (Manual) Nucleated RBC % Seg Neutrophils # Seg Neutrophils # Man Lymphocytes # (Manual) Monocytes # (Manual) Eosinophils # (Manual) Basophils # (Manual) PT INR Fibrinogen dRVVT Confirm Interp Factor V Activity POC ABG pH POC ABG pCO2 POC ABG pO2 ABG pO2 ABG HCO3 ABG Base Excess ABG Hemoglobin Oxyhemoglobin Sodium Potassium Chloride Carbon Dioxide BUN Creatinine Glucose POC Glucose 163 H 123 H 137 H Lactic Acid Calcium Ionized Calcium Phosphorus Magnesium Direct Bilirubin AST ALT Alkaline Phosphatase Lactate Dehydrogenase Troponin T C-Reactive Protein Total Protein Albumin Prealbumin Triglycerides Cholesterol LDL Cholesterol Direct HDL Cholesterol 25-OH Vitamin D Total PTH Intact Urine pH Urine WBC (Auto) Urine Creatinine Urine Total Protein Fluid Total Protein Vancomycin Trough Rheumatoid Factor Complement C4 Miscellaneous Test Crossmatch 12/09/16 12/09/16 12/09/16 05:34 06:00 06:00 WBC 15.5 H RBC 2.87 L Hgb 8.0 L Hct 24.2 L MCV MCH MCHC RDW 17.2 H Plt Count Lymph % (Auto) [place] % (Auto) 11.6 H Lymph # [place] # 1.8 H Baso # Seg Neutrophils % 70.8 H Seg Neuts % (Manual) Lymphocytes % (Manual) Monocytes % (Manual) Eosinophils % (Manual) Basophils % (Manual) Nucleated RBC % Seg Neutrophils # 11.0 H Seg Neutrophils # Man Lymphocytes # (Manual) Monocytes # (Manual) Eosinophils # (Manual) Basophils # (Manual) PT INR Fibrinogen dRVVT Confirm Interp Factor V Activity POC ABG pH POC ABG pCO2 POC ABG pO2 ABG pO2 ABG HCO3 ABG Base Excess ABG Hemoglobin Oxyhemoglobin Sodium Potassium Chloride Carbon Dioxide BUN 51 H Creatinine Glucose 117 H POC Glucose 136 H Lactic Acid Calcium Ionized Calcium Phosphorus Magnesium Direct Bilirubin AST ALT Alkaline Phosphatase Lactate Dehydrogenase Troponin T C-Reactive Protein Total Protein Albumin Prealbumin Triglycerides Cholesterol LDL Cholesterol Direct HDL Cholesterol 25-OH Vitamin D Total PTH Intact Urine pH Urine WBC (Auto) Urine Creatinine Urine Total Protein Fluid Total Protein Vancomycin Trough Rheumatoid Factor Complement C4 Miscellaneous Test Crossmatch 12/09/16 12/09/16 12/09/16 12:29 17:52 23:10 WBC RBC Hgb Hct MCV MCH MCHC RDW Plt Count Lymph % (Auto) [place] % (Auto) Lymph # [place] # Baso # Seg Neutrophils % Seg Neuts % (Manual) Lymphocytes % (Manual) Monocytes % (Manual) Eosinophils % (Manual) Basophils % (Manual) Nucleated RBC % Seg Neutrophils # Seg Neutrophils # Man Lymphocytes # (Manual) Monocytes # (Manual) Eosinophils # (Manual) Basophils # (Manual) PT INR Fibrinogen dRVVT Confirm Interp Factor V Activity POC ABG pH POC ABG pCO2 POC ABG pO2 ABG pO2 ABG HCO3 ABG Base Excess ABG Hemoglobin Oxyhemoglobin Sodium Potassium Chloride Carbon Dioxide BUN Creatinine Glucose POC Glucose 139 H 140 H 129 H Lactic Acid Calcium Ionized Calcium Phosphorus Magnesium Direct Bilirubin AST ALT Alkaline Phosphatase Lactate Dehydrogenase Troponin T C-Reactive Protein Total Protein Albumin Prealbumin Triglycerides Cholesterol LDL Cholesterol Direct HDL Cholesterol 25-OH Vitamin D Total PTH Intact Urine pH Urine WBC (Auto) Urine Creatinine Urine Total Protein Fluid Total Protein Vancomycin Trough Rheumatoid Factor Complement C4 Miscellaneous Test Crossmatch 12/10/16 12/10/16 12/10/16 05:00 05:00 06:54 WBC 15.7 H RBC 2.87 L Hgb 8.2 L Hct 24.4 L MCV MCH MCHC RDW 17.2 H Plt Count Lymph % (Auto) [place] % (Auto) 8.3 H Lymph # [place] # 1.3 H Baso # Seg Neutrophils % 72.8 H Seg Neuts % (Manual) Lymphocytes % (Manual) Monocytes % (Manual) Eosinophils % (Manual) Basophils % (Manual) Nucleated RBC % Seg Neutrophils # 11.4 H Seg Neutrophils # Man Lymphocytes # (Manual) Monocytes # (Manual) Eosinophils # (Manual) Basophils # (Manual) PT INR Fibrinogen dRVVT Confirm Interp Factor V Activity POC ABG pH POC ABG pCO2 POC ABG pO2 ABG pO2 ABG HCO3 ABG Base Excess ABG Hemoglobin Oxyhemoglobin Sodium Potassium Chloride Carbon Dioxide BUN 64 H Creatinine 1.4 H Glucose 134 H POC Glucose 154 H Lactic Acid Calcium Ionized Calcium Phosphorus Magnesium Direct Bilirubin AST ALT Alkaline Phosphatase Lactate Dehydrogenase Troponin T C-Reactive Protein Total Protein Albumin Prealbumin Triglycerides Cholesterol LDL Cholesterol Direct HDL Cholesterol 25-OH Vitamin D Total PTH Intact Urine pH Urine WBC (Auto) Urine Creatinine Urine Total Protein Fluid Total Protein Vancomycin Trough Rheumatoid Factor Complement C4 Miscellaneous Test Crossmatch 12/10/16 12/10/16 12/10/16 11:58 17:29 23:52 WBC RBC Hgb Hct MCV MCH MCHC RDW Plt Count Lymph % (Auto) [place] % (Auto) Lymph # [place] # Baso # Seg Neutrophils % Seg Neuts % (Manual) Lymphocytes % (Manual) Monocytes % (Manual) Eosinophils % (Manual) Basophils % (Manual) Nucleated RBC % Seg Neutrophils # Seg Neutrophils # Man Lymphocytes # (Manual) Monocytes # (Manual) Eosinophils # (Manual) Basophils # (Manual) PT INR Fibrinogen dRVVT Confirm Interp Factor V Activity POC ABG pH POC ABG pCO2 POC ABG pO2 ABG pO2 ABG HCO3 ABG Base Excess ABG Hemoglobin Oxyhemoglobin Sodium Potassium Chloride Carbon Dioxide BUN Creatinine Glucose POC Glucose 144 H 163 H 125 H Lactic Acid Calcium Ionized Calcium Phosphorus Magnesium Direct Bilirubin AST ALT Alkaline Phosphatase Lactate Dehydrogenase Troponin T C-Reactive Protein Total Protein Albumin Prealbumin Triglycerides Cholesterol LDL Cholesterol Direct HDL Cholesterol 25-OH Vitamin D Total PTH Intact Urine pH Urine WBC (Auto) Urine Creatinine Urine Total Protein Fluid Total Protein Vancomycin Trough Rheumatoid Factor Complement C4 Miscellaneous Test Crossmatch 12/11/16 12/11/16 12/11/16 05:38 06:30 06:30 WBC 14.4 H RBC 2.76 L Hgb 7.7 L Hct 23.4 L MCV MCH MCHC RDW 17.2 H Plt Count Lymph % (Auto) [place] % (Auto) 8.8 H Lymph # [place] # 1.3 H Baso # Seg Neutrophils % 72.5 H Seg Neuts % (Manual) Lymphocytes % (Manual) Monocytes % (Manual) Eosinophils % (Manual) Basophils % (Manual) Nucleated RBC % Seg Neutrophils # 10.5 H Seg Neutrophils # Man Lymphocytes # (Manual) Monocytes # (Manual) Eosinophils # (Manual) Basophils # (Manual) PT INR Fibrinogen dRVVT Confirm Interp Factor V Activity POC ABG pH POC ABG pCO2 POC ABG pO2 ABG pO2 ABG HCO3 ABG Base Excess ABG Hemoglobin Oxyhemoglobin Sodium Potassium Chloride Carbon Dioxide BUN 43 H Creatinine Glucose 124 H POC Glucose 141 H Lactic Acid Calcium 8.3 L Ionized Calcium Phosphorus Magnesium 1.60 L Direct Bilirubin AST ALT Alkaline Phosphatase Lactate Dehydrogenase Troponin T C-Reactive Protein Total Protein Albumin Prealbumin Triglycerides Cholesterol LDL Cholesterol Direct HDL Cholesterol 25-OH Vitamin D Total PTH Intact Urine pH Urine WBC (Auto) Urine Creatinine Urine Total Protein Fluid Total Protein Vancomycin Trough Rheumatoid Factor Complement C4 Miscellaneous Test Crossmatch 12/11/16 12/11/16 12/11/16 11:15 17:59 23:48 WBC RBC Hgb Hct MCV MCH MCHC RDW Plt Count Lymph % (Auto) [place] % (Auto) Lymph # [place] # Baso # Seg Neutrophils % Seg Neuts % (Manual) Lymphocytes % (Manual) Monocytes % (Manual) Eosinophils % (Manual) Basophils % (Manual) Nucleated RBC % Seg Neutrophils # Seg Neutrophils # Man Lymphocytes # (Manual) Monocytes # (Manual) Eosinophils # (Manual) Basophils # (Manual) PT INR Fibrinogen dRVVT Confirm Interp Factor V Activity POC ABG pH POC ABG pCO2 POC ABG pO2 ABG pO2 ABG HCO3 ABG Base Excess ABG Hemoglobin Oxyhemoglobin Sodium Potassium Chloride Carbon Dioxide BUN Creatinine Glucose POC Glucose 188 H 106 H 119 H Lactic Acid Calcium Ionized Calcium Phosphorus Magnesium Direct Bilirubin AST ALT Alkaline Phosphatase Lactate Dehydrogenase Troponin T C-Reactive Protein Total Protein Albumin Prealbumin Triglycerides Cholesterol LDL Cholesterol Direct HDL Cholesterol 25-OH Vitamin D Total PTH Intact Urine pH Urine WBC (Auto) Urine Creatinine Urine Total Protein Fluid Total Protein Vancomycin Trough Rheumatoid Factor Complement C4 Miscellaneous Test Crossmatch 12/12/16 12/12/16 12/12/16 05:00 06:01 12:20 WBC 16.7 H RBC 2.87 L Hgb 8.0 L Hct 24.2 L MCV MCH MCHC RDW 17.6 H Plt Count Lymph % (Auto) [place] % (Auto) Lymph # [place] # 1.2 H Baso # Seg Neutrophils % 75.3 H Seg Neuts % (Manual) Lymphocytes % (Manual) Monocytes % (Manual) Eosinophils % (Manual) Basophils % (Manual) Nucleated RBC % Seg Neutrophils # 12.6 H Seg Neutrophils # Man Lymphocytes # (Manual) Monocytes # (Manual) Eosinophils # (Manual) Basophils # (Manual) PT INR Fibrinogen dRVVT Confirm Interp Factor V Activity POC ABG pH POC ABG pCO2 POC ABG pO2 ABG pO2 ABG HCO3 ABG Base Excess ABG Hemoglobin Oxyhemoglobin Sodium Potassium Chloride Carbon Dioxide BUN Creatinine Glucose POC Glucose 134 H 149 H Lactic Acid Calcium Ionized Calcium Phosphorus Magnesium Direct Bilirubin AST ALT Alkaline Phosphatase Lactate Dehydrogenase Troponin T C-Reactive Protein Total Protein Albumin Prealbumin Triglycerides Cholesterol LDL Cholesterol Direct HDL Cholesterol 25-OH Vitamin D Total PTH Intact Urine pH Urine WBC (Auto) Urine Creatinine Urine Total Protein Fluid Total Protein Vancomycin Trough Rheumatoid Factor Complement C4 Miscellaneous Test Crossmatch 12/12/16 12/12/16 12/12/16 17:38 23:01 Unknown WBC RBC Hgb Hct MCV MCH MCHC RDW Plt Count Lymph % (Auto) [place] % (Auto) Lymph # [place] # Baso # Seg Neutrophils % Seg Neuts % (Manual) Lymphocytes % (Manual) Monocytes % (Manual) Eosinophils % (Manual) Basophils % (Manual) Nucleated RBC % Seg Neutrophils # Seg Neutrophils # Man Lymphocytes # (Manual) Monocytes # (Manual) Eosinophils # (Manual) Basophils # (Manual) PT INR Fibrinogen dRVVT Confirm Interp Factor V Activity POC ABG pH POC ABG pCO2 POC ABG pO2 ABG pO2 ABG HCO3 ABG Base Excess ABG Hemoglobin Oxyhemoglobin Sodium Potassium Chloride Carbon Dioxide BUN 60 H Creatinine 1.3 H Glucose 126 H POC Glucose 127 H 144 H Lactic Acid Calcium Ionized Calcium Phosphorus Magnesium Direct Bilirubin AST ALT Alkaline Phosphatase Lactate Dehydrogenase Troponin T C-Reactive Protein Total Protein Albumin Prealbumin Triglycerides Cholesterol LDL Cholesterol Direct HDL Cholesterol 25-OH Vitamin D Total PTH Intact Urine pH Urine WBC (Auto) Urine Creatinine Urine Total Protein Fluid Total Protein Vancomycin Trough Rheumatoid Factor Complement C4 Miscellaneous Test Crossmatch 12/13/16 12/13/16 12/13/16 04:00 04:00 05:19 WBC 18.7 H RBC 2.89 L Hgb 8.3 L Hct 24.6 L MCV MCH MCHC RDW 17.5 H Plt Count Lymph % (Auto) [place] % (Auto) Lymph # [place] # 1.3 H Baso # Seg Neutrophils % 71.5 H Seg Neuts % (Manual) Lymphocytes % (Manual) Monocytes % (Manual) Eosinophils % (Manual) Basophils % (Manual) Nucleated RBC % Seg Neutrophils # 13.4 H Seg Neutrophils # Man Lymphocytes # (Manual) Monocytes # (Manual) Eosinophils # (Manual) Basophils # (Manual) PT INR Fibrinogen dRVVT Confirm Interp Factor V Activity POC ABG pH POC ABG pCO2 POC ABG pO2 ABG pO2 ABG HCO3 ABG Base Excess ABG Hemoglobin Oxyhemoglobin Sodium Potassium Chloride Carbon Dioxide BUN 73 H Creatinine 1.5 H Glucose 141 H POC Glucose 171 H Lactic Acid Calcium Ionized Calcium Phosphorus Magnesium Direct Bilirubin AST ALT Alkaline Phosphatase Lactate Dehydrogenase Troponin T C-Reactive Protein Total Protein Albumin Prealbumin Triglycerides Cholesterol LDL Cholesterol Direct HDL Cholesterol 25-OH Vitamin D Total PTH Intact Urine pH Urine WBC (Auto) Urine Creatinine Urine Total Protein Fluid Total Protein Vancomycin Trough Rheumatoid Factor Complement C4 Miscellaneous Test Crossmatch 12/13/16 12/13/16 12/14/16 12:28 16:48 00:01 WBC RBC Hgb Hct MCV MCH MCHC RDW Plt Count Lymph % (Auto) [place] % (Auto) Lymph # [place] # Baso # Seg Neutrophils % Seg Neuts % (Manual) Lymphocytes % (Manual) Monocytes % (Manual) Eosinophils % (Manual) Basophils % (Manual) Nucleated RBC % Seg Neutrophils # Seg Neutrophils # Man Lymphocytes # (Manual) Monocytes # (Manual) Eosinophils # (Manual) Basophils # (Manual) PT INR Fibrinogen dRVVT Confirm Interp Factor V Activity POC ABG pH POC ABG pCO2 POC ABG pO2 ABG pO2 ABG HCO3 ABG Base Excess ABG Hemoglobin Oxyhemoglobin Sodium Potassium Chloride Carbon Dioxide BUN Creatinine Glucose POC Glucose 206 H 173 H 139 H Lactic Acid Calcium Ionized Calcium Phosphorus Magnesium Direct Bilirubin AST ALT Alkaline Phosphatase Lactate Dehydrogenase Troponin T C-Reactive Protein Total Protein Albumin Prealbumin Triglycerides Cholesterol LDL Cholesterol Direct HDL Cholesterol 25-OH Vitamin D Total PTH Intact Urine pH Urine WBC (Auto) Urine Creatinine Urine Total Protein Fluid Total Protein Vancomycin Trough Rheumatoid Factor Complement C4 Miscellaneous Test Crossmatch 12/14/16 12/14/16 12/14/16 05:16 06:10 11:17 WBC RBC Hgb Hct MCV MCH MCHC RDW Plt Count Lymph % (Auto) [place] % (Auto) Lymph # [place] # Baso # Seg Neutrophils % Seg Neuts % (Manual) Lymphocytes % (Manual) Monocytes % (Manual) Eosinophils % (Manual) Basophils % (Manual) Nucleated RBC % Seg Neutrophils # Seg Neutrophils # Man Lymphocytes # (Manual) Monocytes # (Manual) Eosinophils # (Manual) Basophils # (Manual) PT INR Fibrinogen dRVVT Confirm Interp Factor V Activity POC ABG pH POC ABG pCO2 POC ABG pO2 ABG pO2 ABG HCO3 ABG Base Excess ABG Hemoglobin Oxyhemoglobin Sodium Potassium Chloride Carbon Dioxide BUN 57 H Creatinine 1.4 H Glucose 135 H POC Glucose 158 H 137 H Lactic Acid Calcium Ionized Calcium Phosphorus Magnesium Direct Bilirubin AST ALT Alkaline Phosphatase Lactate Dehydrogenase Troponin T C-Reactive Protein Total Protein Albumin Prealbumin Triglycerides Cholesterol LDL Cholesterol Direct HDL Cholesterol 25-OH Vitamin D Total PTH Intact Urine pH Urine WBC (Auto) Urine Creatinine Urine Total Protein Fluid Total Protein Vancomycin Trough Rheumatoid Factor Complement C4 Miscellaneous Test Crossmatch 12/14/16 12/14/16 12/15/16 17:52 23:27 04:00 WBC RBC Hgb Hct MCV MCH MCHC RDW Plt Count Lymph % (Auto) [place] % (Auto) Lymph # [place] # Baso # Seg Neutrophils % Seg Neuts % (Manual) Lymphocytes % (Manual) Monocytes % (Manual) Eosinophils % (Manual) Basophils % (Manual) Nucleated RBC % Seg Neutrophils # Seg Neutrophils # Man Lymphocytes # (Manual) Monocytes # (Manual) Eosinophils # (Manual) Basophils # (Manual) PT INR Fibrinogen dRVVT Confirm Interp Factor V Activity POC ABG pH POC ABG pCO2 POC ABG pO2 ABG pO2 ABG HCO3 ABG Base Excess ABG Hemoglobin Oxyhemoglobin Sodium Potassium Chloride 97.9 L Carbon Dioxide BUN 75 H Creatinine 1.6 H Glucose 122 H POC Glucose 149 H 163 H Lactic Acid Calcium Ionized Calcium Phosphorus 5.20 H Magnesium Direct Bilirubin AST ALT Alkaline Phosphatase Lactate Dehydrogenase Troponin T C-Reactive Protein Total Protein Albumin Prealbumin Triglycerides Cholesterol LDL Cholesterol Direct HDL Cholesterol 25-OH Vitamin D Total PTH Intact Urine pH Urine WBC (Auto) Urine Creatinine Urine Total Protein Fluid Total Protein Vancomycin Trough Rheumatoid Factor Complement C4 Miscellaneous Test Crossmatch 12/15/16 12/15/16 12/15/16 05:50 11:24 17:01 WBC RBC Hgb Hct MCV MCH MCHC RDW Plt Count Lymph % (Auto) [place] % (Auto) Lymph # [place] # Baso # Seg Neutrophils % Seg Neuts % (Manual) Lymphocytes % (Manual) Monocytes % (Manual) Eosinophils % (Manual) Basophils % (Manual) Nucleated RBC % Seg Neutrophils # Seg Neutrophils # Man Lymphocytes # (Manual) Monocytes # (Manual) Eosinophils # (Manual) Basophils # (Manual) PT INR Fibrinogen dRVVT Confirm Interp Factor V Activity POC ABG pH POC ABG pCO2 POC ABG pO2 ABG pO2 ABG HCO3 ABG Base Excess ABG Hemoglobin Oxyhemoglobin Sodium Potassium Chloride Carbon Dioxide BUN Creatinine Glucose POC Glucose 150 H 146 H 167 H Lactic Acid Calcium Ionized Calcium Phosphorus Magnesium Direct Bilirubin AST ALT Alkaline Phosphatase Lactate Dehydrogenase Troponin T C-Reactive Protein Total Protein Albumin Prealbumin Triglycerides Cholesterol LDL Cholesterol Direct HDL Cholesterol 25-OH Vitamin D Total PTH Intact Urine pH Urine WBC (Auto) Urine Creatinine Urine Total Protein Fluid Total Protein Vancomycin Trough Rheumatoid Factor Complement C4 Miscellaneous Test Crossmatch 12/15/16 12/16/16 12/16/16 23:34 05:25 11:24 WBC RBC Hgb Hct MCV MCH MCHC RDW Plt Count Lymph % (Auto) [place] % (Auto) Lymph # [place] # Baso # Seg Neutrophils % Seg Neuts % (Manual) Lymphocytes % (Manual) Monocytes % (Manual) Eosinophils % (Manual) Basophils % (Manual) Nucleated RBC % Seg Neutrophils # Seg Neutrophils # Man Lymphocytes # (Manual) Monocytes # (Manual) Eosinophils # (Manual) Basophils # (Manual) PT INR Fibrinogen dRVVT Confirm Interp Factor V Activity POC ABG pH POC ABG pCO2 POC ABG pO2 ABG pO2 ABG HCO3 ABG Base Excess ABG Hemoglobin Oxyhemoglobin Sodium Potassium Chloride Carbon Dioxide BUN Creatinine Glucose POC Glucose 127 H 139 H 165 H Lactic Acid Calcium Ionized Calcium Phosphorus Magnesium Direct Bilirubin AST ALT Alkaline Phosphatase Lactate Dehydrogenase Troponin T C-Reactive Protein Total Protein Albumin Prealbumin Triglycerides Cholesterol LDL Cholesterol Direct HDL Cholesterol 25-OH Vitamin D Total PTH Intact Urine pH Urine WBC (Auto) Urine Creatinine Urine Total Protein Fluid Total Protein Vancomycin Trough Rheumatoid Factor Complement C4 Miscellaneous Test Crossmatch 12/16/16 12/16/16 12/16/16 15:30 16:25 17:31 WBC 17.8 H RBC 2.38 L Hgb 6.4 L Hct 20.3 L MCV MCH 27 L MCHC RDW 17.4 H Plt Count Lymph % (Auto) [place] % (Auto) Lymph # [place] # Baso # Seg Neutrophils % Seg Neuts % (Manual) Lymphocytes % (Manual) Monocytes % (Manual) 10.0 H Eosinophils % (Manual) Basophils % (Manual) Nucleated RBC % Seg Neutrophils # Seg Neutrophils # Man 8.5 H Lymphocytes # (Manual) Monocytes # (Manual) 1.8 H Eosinophils # (Manual) Basophils # (Manual) PT INR Fibrinogen dRVVT Confirm Interp Factor V Activity POC ABG pH POC ABG pCO2 POC ABG pO2 ABG pO2 ABG HCO3 ABG Base Excess ABG Hemoglobin Oxyhemoglobin Sodium Potassium Chloride Carbon Dioxide BUN Creatinine Glucose POC Glucose 176 H Lactic Acid Calcium Ionized Calcium Phosphorus Magnesium Direct Bilirubin AST ALT Alkaline Phosphatase Lactate Dehydrogenase Troponin T C-Reactive Protein Total Protein Albumin Prealbumin Triglycerides Cholesterol LDL Cholesterol Direct HDL Cholesterol 25-OH Vitamin D Total PTH Intact Urine pH Urine WBC (Auto) Urine Creatinine Urine Total Protein Fluid Total Protein Vancomycin Trough Rheumatoid Factor Complement C4 Miscellaneous Test Crossmatch See Detail 12/17/16 12/17/16 12/17/16 00:14 04:00 05:00 WBC 20.0 H RBC 2.99 L Hgb 8.5 L Hct 25.7 L MCV MCH MCHC RDW 17.2 H Plt Count Lymph % (Auto) [place] % (Auto) Lymph # [place] # Baso # Seg Neutrophils % Seg Neuts % (Manual) Lymphocytes % (Manual) Monocytes % (Manual) Eosinophils % (Manual) Basophils % (Manual) Nucleated RBC % Seg Neutrophils # Seg Neutrophils # Man Lymphocytes # (Manual) Monocytes # (Manual) Eosinophils # (Manual) Basophils # (Manual) PT INR Fibrinogen dRVVT Confirm Interp Factor V Activity POC ABG pH POC ABG pCO2 POC ABG pO2 ABG pO2 ABG HCO3 ABG Base Excess ABG Hemoglobin Oxyhemoglobin Sodium Potassium Chloride 97.7 L Carbon Dioxide BUN 73 H Creatinine 1.7 H Glucose 136 H POC Glucose 148 H Lactic Acid Calcium Ionized Calcium Phosphorus 2.20 L Magnesium 2.70 H Direct Bilirubin AST ALT Alkaline Phosphatase Lactate Dehydrogenase Troponin T C-Reactive Protein Total Protein Albumin Prealbumin Triglycerides Cholesterol LDL Cholesterol Direct HDL Cholesterol 25-OH Vitamin D Total PTH Intact Urine pH Urine WBC (Auto) Urine Creatinine Urine Total Protein Fluid Total Protein Vancomycin Trough Rheumatoid Factor Complement C4 Miscellaneous Test Crossmatch 12/17/16 12/17/16 12/17/16 05:39 12:50 16:32 WBC RBC Hgb Hct MCV MCH MCHC RDW Plt Count Lymph % (Auto) [place] % (Auto) Lymph # [place] # Baso # Seg Neutrophils % Seg Neuts % (Manual) Lymphocytes % (Manual) Monocytes % (Manual) Eosinophils % (Manual) Basophils % (Manual) Nucleated RBC % Seg Neutrophils # Seg Neutrophils # Man Lymphocytes # (Manual) Monocytes # (Manual) Eosinophils # (Manual) Basophils # (Manual) PT INR Fibrinogen dRVVT Confirm Interp Factor V Activity POC ABG pH POC ABG pCO2 POC ABG pO2 ABG pO2 ABG HCO3 ABG Base Excess ABG Hemoglobin Oxyhemoglobin Sodium Potassium Chloride Carbon Dioxide BUN Creatinine Glucose POC Glucose 162 H 146 H 169 H Lactic Acid Calcium Ionized Calcium Phosphorus Magnesium Direct Bilirubin AST ALT Alkaline Phosphatase Lactate Dehydrogenase Troponin T C-Reactive Protein Total Protein Albumin Prealbumin Triglycerides Cholesterol LDL Cholesterol Direct HDL Cholesterol 25-OH Vitamin D Total PTH Intact Urine pH Urine WBC (Auto) Urine Creatinine Urine Total Protein Fluid Total Protein Vancomycin Trough Rheumatoid Factor Complement C4 Miscellaneous Test Crossmatch 12/17/16 12/18/16 12/18/16 23:57 05:00 05:32 WBC RBC Hgb Hct MCV MCH MCHC RDW Plt Count Lymph % (Auto) [place] % (Auto) Lymph # [place] # Baso # Seg Neutrophils % Seg Neuts % (Manual) Lymphocytes % (Manual) Monocytes % (Manual) Eosinophils % (Manual) Basophils % (Manual) Nucleated RBC % Seg Neutrophils # Seg Neutrophils # Man Lymphocytes # (Manual) Monocytes # (Manual) Eosinophils # (Manual) Basophils # (Manual) PT INR Fibrinogen dRVVT Confirm Interp Factor V Activity POC ABG pH POC ABG pCO2 POC ABG pO2 ABG pO2 ABG HCO3 ABG Base Excess ABG Hemoglobin Oxyhemoglobin Sodium Potassium Chloride 97.0 L Carbon Dioxide BUN 63 H Creatinine 1.4 H Glucose 174 H POC Glucose 145 H 201 H Lactic Acid Calcium Ionized Calcium Phosphorus 1.70 L D Magnesium Direct Bilirubin AST ALT Alkaline Phosphatase 257 H Lactate Dehydrogenase Troponin T C-Reactive Protein Total Protein 5.9 L Albumin 1.8 L Prealbumin Triglycerides Cholesterol LDL Cholesterol Direct HDL Cholesterol 25-OH Vitamin D Total PTH Intact Urine pH Urine WBC (Auto) Urine Creatinine Urine Total Protein Fluid Total Protein Vancomycin Trough Rheumatoid Factor Complement C4 Miscellaneous Test Crossmatch 12/18/16 12/18/16 12/18/16 11:43 16:52 23:52 WBC RBC Hgb Hct MCV MCH MCHC RDW Plt Count Lymph % (Auto) [place] % (Auto) Lymph # [place] # Baso # Seg Neutrophils % Seg Neuts % (Manual) Lymphocytes % (Manual) Monocytes % (Manual) Eosinophils % (Manual) Basophils % (Manual) Nucleated RBC % Seg Neutrophils # Seg Neutrophils # Man Lymphocytes # (Manual) Monocytes # (Manual) Eosinophils # (Manual) Basophils # (Manual) PT INR Fibrinogen dRVVT Confirm Interp Factor V Activity POC ABG pH POC ABG pCO2 POC ABG pO2 ABG pO2 ABG HCO3 ABG Base Excess ABG Hemoglobin Oxyhemoglobin Sodium Potassium Chloride Carbon Dioxide BUN Creatinine Glucose POC Glucose 177 H 110 H 162 H Lactic Acid Calcium Ionized Calcium Phosphorus Magnesium Direct Bilirubin AST ALT Alkaline Phosphatase Lactate Dehydrogenase Troponin T C-Reactive Protein Total Protein Albumin Prealbumin Triglycerides Cholesterol LDL Cholesterol Direct HDL Cholesterol 25-OH Vitamin D Total PTH Intact Urine pH Urine WBC (Auto) Urine Creatinine Urine Total Protein Fluid Total Protein Vancomycin Trough Rheumatoid Factor Complement C4 Miscellaneous Test Crossmatch 12/19/16 12/19/16 12/19/16 05:02 05:24 09:30 WBC 20.1 H RBC 2.73 L Hgb 7.6 L Hct 23.6 L MCV MCH MCHC RDW 17.6 H Plt Count Lymph % (Auto) [place] % (Auto) Lymph # [place] # Baso # Seg Neutrophils % Seg Neuts % (Manual) Lymphocytes % (Manual) 13.0 L Monocytes % (Manual) Eosinophils % (Manual) Basophils % (Manual) Nucleated RBC % 1.0 H Seg Neutrophils # Seg Neutrophils # Man 12.9 H Lymphocytes # (Manual) Monocytes # (Manual) 1.4 H Eosinophils # (Manual) Basophils # (Manual) 0.2 H PT INR Fibrinogen dRVVT Confirm Interp Factor V Activity POC ABG pH POC ABG pCO2 POC ABG pO2 ABG pO2 ABG HCO3 ABG Base Excess ABG Hemoglobin Oxyhemoglobin Sodium Potassium Chloride 97.8 L Carbon Dioxide BUN 84 H Creatinine 1.6 H Glucose 133 H POC Glucose 134 H Lactic Acid Calcium Ionized Calcium Phosphorus Magnesium Direct Bilirubin AST ALT Alkaline Phosphatase Lactate Dehydrogenase Troponin T C-Reactive Protein Total Protein Albumin Prealbumin Triglycerides Cholesterol LDL Cholesterol Direct HDL Cholesterol 25-OH Vitamin D Total PTH Intact Urine pH Urine WBC (Auto) Urine Creatinine Urine Total Protein Fluid Total Protein Vancomycin Trough Rheumatoid Factor Complement C4 Miscellaneous Test Crossmatch 12/19/16 12/19/16 12/19/16 09:36 11:12 18:29 WBC RBC Hgb Hct MCV MCH MCHC RDW Plt Count Lymph % (Auto) [place] % (Auto) Lymph # [place] # Baso # Seg Neutrophils % Seg Neuts % (Manual) Lymphocytes % (Manual) Monocytes % (Manual) Eosinophils % (Manual) Basophils % (Manual) Nucleated RBC % Seg Neutrophils # Seg Neutrophils # Man Lymphocytes # (Manual) Monocytes # (Manual) Eosinophils # (Manual) Basophils # (Manual) PT INR Fibrinogen dRVVT Confirm Interp Factor V Activity POC ABG pH 7.503 H POC ABG pCO2 30.1 L POC ABG pO2 ABG pO2 ABG HCO3 ABG Base Excess ABG Hemoglobin Oxyhemoglobin Sodium Potassium Chloride Carbon Dioxide BUN Creatinine Glucose POC Glucose 138 H 156 H Lactic Acid Calcium Ionized Calcium Phosphorus Magnesium Direct Bilirubin AST ALT Alkaline Phosphatase Lactate Dehydrogenase Troponin T C-Reactive Protein Total Protein Albumin Prealbumin Triglycerides Cholesterol LDL Cholesterol Direct HDL Cholesterol 25-OH Vitamin D Total PTH Intact Urine pH Urine WBC (Auto) Urine Creatinine Urine Total Protein Fluid Total Protein Vancomycin Trough Rheumatoid Factor Complement C4 Miscellaneous Test Crossmatch 12/20/16 12/20/16 12/20/16 00:03 06:17 07:07 WBC RBC Hgb Hct MCV MCH MCHC RDW Plt Count Lymph % (Auto) [place] % (Auto) Lymph # [place] # Baso # Seg Neutrophils % Seg Neuts % (Manual) Lymphocytes % (Manual) Monocytes % (Manual) Eosinophils % (Manual) Basophils % (Manual) Nucleated RBC % Seg Neutrophils # Seg Neutrophils # Man Lymphocytes # (Manual) Monocytes # (Manual) Eosinophils # (Manual) Basophils # (Manual) PT INR Fibrinogen dRVVT Confirm Interp Factor V Activity POC ABG pH POC ABG pCO2 POC ABG pO2 ABG pO2 ABG HCO3 ABG Base Excess ABG Hemoglobin Oxyhemoglobin Sodium Potassium Chloride 97.1 L Carbon Dioxide 20 L BUN 97 H Creatinine 1.8 H Glucose 153 H POC Glucose 152 H 175 H Lactic Acid Calcium Ionized Calcium Phosphorus Magnesium Direct Bilirubin AST ALT Alkaline Phosphatase Lactate Dehydrogenase Troponin T C-Reactive Protein Total Protein Albumin Prealbumin Triglycerides Cholesterol LDL Cholesterol Direct HDL Cholesterol 25-OH Vitamin D Total PTH Intact Urine pH Urine WBC (Auto) Urine Creatinine Urine Total Protein Fluid Total Protein Vancomycin Trough Rheumatoid Factor Complement C4 Miscellaneous Test Crossmatch 12/20/16 12/20/16 12/20/16 12:00 17:42 23:53 WBC RBC Hgb Hct MCV MCH MCHC RDW Plt Count Lymph % (Auto) [place] % (Auto) Lymph # [place] # Baso # Seg Neutrophils % Seg Neuts % (Manual) Lymphocytes % (Manual) Monocytes % (Manual) Eosinophils % (Manual) Basophils % (Manual) Nucleated RBC % Seg Neutrophils # Seg Neutrophils # Man Lymphocytes # (Manual) Monocytes # (Manual) Eosinophils # (Manual) Basophils # (Manual) PT INR Fibrinogen dRVVT Confirm Interp Factor V Activity POC ABG pH POC ABG pCO2 POC ABG pO2 ABG pO2 ABG HCO3 ABG Base Excess ABG Hemoglobin Oxyhemoglobin Sodium Potassium Chloride Carbon Dioxide BUN Creatinine Glucose POC Glucose 141 H 156 H 132 H Lactic Acid Calcium Ionized Calcium Phosphorus Magnesium Direct Bilirubin AST ALT Alkaline Phosphatase Lactate Dehydrogenase Troponin T C-Reactive Protein Total Protein Albumin Prealbumin Triglycerides Cholesterol LDL Cholesterol Direct HDL Cholesterol 25-OH Vitamin D Total PTH Intact Urine pH Urine WBC (Auto) Urine Creatinine Urine Total Protein Fluid Total Protein Vancomycin Trough Rheumatoid Factor Complement C4 Miscellaneous Test Crossmatch 12/21/16 12/21/16 12/21/16 05:49 08:50 12:19 WBC RBC Hgb Hct MCV MCH MCHC RDW Plt Count Lymph % (Auto) [place] % (Auto) Lymph # [place] # Baso # Seg Neutrophils % Seg Neuts % (Manual) Lymphocytes % (Manual) Monocytes % (Manual) Eosinophils % (Manual) Basophils % (Manual) Nucleated RBC % Seg Neutrophils # Seg Neutrophils # Man Lymphocytes # (Manual) Monocytes # (Manual) Eosinophils # (Manual) Basophils # (Manual) PT INR Fibrinogen dRVVT Confirm Interp Factor V Activity POC ABG pH POC ABG pCO2 POC ABG pO2 ABG pO2 ABG HCO3 ABG Base Excess ABG Hemoglobin Oxyhemoglobin Sodium Potassium 5.2 H D Chloride Carbon Dioxide BUN 63 H Creatinine Glucose 122 H POC Glucose 132 H 136 H Lactic Acid Calcium 8.3 L Ionized Calcium Phosphorus Magnesium Direct Bilirubin AST ALT Alkaline Phosphatase Lactate Dehydrogenase Troponin T C-Reactive Protein Total Protein Albumin Prealbumin Triglycerides Cholesterol LDL Cholesterol Direct HDL Cholesterol 25-OH Vitamin D Total PTH Intact Urine pH Urine WBC (Auto) Urine Creatinine Urine Total Protein Fluid Total Protein Vancomycin Trough Rheumatoid Factor Complement C4 Miscellaneous Test Crossmatch 12/21/16 12/21/16 12/22/16 17:22 23:58 05:49 WBC RBC Hgb Hct MCV MCH MCHC RDW Plt Count Lymph % (Auto) [place] % (Auto) Lymph # [place] # Baso # Seg Neutrophils % Seg Neuts % (Manual) Lymphocytes % (Manual) Monocytes % (Manual) Eosinophils % (Manual) Basophils % (Manual) Nucleated RBC % Seg Neutrophils # Seg Neutrophils # Man Lymphocytes # (Manual) Monocytes # (Manual) Eosinophils # (Manual) Basophils # (Manual) PT INR Fibrinogen dRVVT Confirm Interp Factor V Activity POC ABG pH POC ABG pCO2 POC ABG pO2 ABG pO2 ABG HCO3 ABG Base Excess ABG Hemoglobin Oxyhemoglobin Sodium Potassium Chloride Carbon Dioxide BUN Creatinine Glucose POC Glucose 135 H 149 H 140 H Lactic Acid Calcium Ionized Calcium Phosphorus Magnesium Direct Bilirubin AST ALT Alkaline Phosphatase Lactate Dehydrogenase Troponin T C-Reactive Protein Total Protein Albumin Prealbumin Triglycerides Cholesterol LDL Cholesterol Direct HDL Cholesterol 25-OH Vitamin D Total PTH Intact Urine pH Urine WBC (Auto) Urine Creatinine Urine Total Protein Fluid Total Protein Vancomycin Trough Rheumatoid Factor Complement C4 Miscellaneous Test Crossmatch 12/22/16 12/22/16 12/22/16 06:10 11:17 17:31 WBC RBC Hgb Hct MCV MCH MCHC RDW Plt Count Lymph % (Auto) [place] % (Auto) Lymph # [place] # Baso # Seg Neutrophils % Seg Neuts % (Manual) Lymphocytes % (Manual) Monocytes % (Manual) Eosinophils % (Manual) Basophils % (Manual) Nucleated RBC % Seg Neutrophils # Seg Neutrophils # Man Lymphocytes # (Manual) Monocytes # (Manual) Eosinophils # (Manual) Basophils # (Manual) PT INR Fibrinogen dRVVT Confirm Interp Factor V Activity POC ABG pH POC ABG pCO2 POC ABG pO2 ABG pO2 ABG HCO3 ABG Base Excess ABG Hemoglobin Oxyhemoglobin Sodium Potassium Chloride Carbon Dioxide BUN 76 H Creatinine 1.5 H Glucose 241 H POC Glucose 193 H 148 H Lactic Acid Calcium Ionized Calcium Phosphorus Magnesium Direct Bilirubin AST ALT Alkaline Phosphatase Lactate Dehydrogenase Troponin T C-Reactive Protein Total Protein Albumin Prealbumin Triglycerides Cholesterol LDL Cholesterol Direct HDL Cholesterol 25-OH Vitamin D Total PTH Intact Urine pH Urine WBC (Auto) Urine Creatinine Urine Total Protein Fluid Total Protein Vancomycin Trough Rheumatoid Factor Complement C4 Miscellaneous Test Crossmatch 12/22/16 12/23/16 12/23/16 23:58 05:00 05:26 WBC RBC Hgb Hct MCV MCH MCHC RDW Plt Count Lymph % (Auto) [place] % (Auto) Lymph # [place] # Baso # Seg Neutrophils % Seg Neuts % (Manual) Lymphocytes % (Manual) Monocytes % (Manual) Eosinophils % (Manual) Basophils % (Manual) Nucleated RBC % Seg Neutrophils # Seg Neutrophils # Man Lymphocytes # (Manual) Monocytes # (Manual) Eosinophils # (Manual) Basophils # (Manual) PT INR Fibrinogen dRVVT Confirm Interp Factor V Activity POC ABG pH POC ABG pCO2 POC ABG pO2 ABG pO2 ABG HCO3 ABG Base Excess ABG Hemoglobin Oxyhemoglobin Sodium Potassium Chloride Carbon Dioxide BUN 49 H Creatinine Glucose 143 H POC Glucose 165 H 154 H Lactic Acid Calcium 8.2 L Ionized Calcium Phosphorus Magnesium 1.60 L Direct Bilirubin AST ALT Alkaline Phosphatase Lactate Dehydrogenase Troponin T C-Reactive Protein Total Protein Albumin Prealbumin Triglycerides Cholesterol LDL Cholesterol Direct HDL Cholesterol 25-OH Vitamin D Total PTH Intact Urine pH Urine WBC (Auto) Urine Creatinine Urine Total Protein Fluid Total Protein Vancomycin Trough Rheumatoid Factor Complement C4 Miscellaneous Test Crossmatch 12/23/16 12/23/16 12/24/16 12:35 17:01 00:01 WBC RBC Hgb Hct MCV MCH MCHC RDW Plt Count Lymph % (Auto) [place] % (Auto) Lymph # [place] # Baso # Seg Neutrophils % Seg Neuts % (Manual) Lymphocytes % (Manual) Monocytes % (Manual) Eosinophils % (Manual) Basophils % (Manual) Nucleated RBC % Seg Neutrophils # Seg Neutrophils # Man Lymphocytes # (Manual) Monocytes # (Manual) Eosinophils # (Manual) Basophils # (Manual) PT INR Fibrinogen dRVVT Confirm Interp Factor V Activity POC ABG pH POC ABG pCO2 POC ABG pO2 ABG pO2 ABG HCO3 ABG Base Excess ABG Hemoglobin Oxyhemoglobin Sodium Potassium Chloride Carbon Dioxide BUN Creatinine Glucose POC Glucose 164 H 149 H 135 H Lactic Acid Calcium Ionized Calcium Phosphorus Magnesium Direct Bilirubin AST ALT Alkaline Phosphatase Lactate Dehydrogenase Troponin T C-Reactive Protein Total Protein Albumin Prealbumin Triglycerides Cholesterol LDL Cholesterol Direct HDL Cholesterol 25-OH Vitamin D Total PTH Intact Urine pH Urine WBC (Auto) Urine Creatinine Urine Total Protein Fluid Total Protein Vancomycin Trough Rheumatoid Factor Complement C4 Miscellaneous Test Crossmatch 12/24/16 12/24/16 12/24/16 05:41 07:01 11:38 WBC RBC Hgb Hct MCV MCH MCHC RDW Plt Count Lymph % (Auto) [place] % (Auto) Lymph # [place] # Baso # Seg Neutrophils % Seg Neuts % (Manual) Lymphocytes % (Manual) Monocytes % (Manual) Eosinophils % (Manual) Basophils % (Manual) Nucleated RBC % Seg Neutrophils # Seg Neutrophils # Man Lymphocytes # (Manual) Monocytes # (Manual) Eosinophils # (Manual) Basophils # (Manual) PT INR Fibrinogen dRVVT Confirm Interp Factor V Activity POC ABG pH POC ABG pCO2 POC ABG pO2 ABG pO2 ABG HCO3 ABG Base Excess ABG Hemoglobin Oxyhemoglobin Sodium Potassium Chloride Carbon Dioxide BUN 72 H Creatinine 1.3 H Glucose 130 H POC Glucose 132 H 156 H Lactic Acid Calcium 8.2 L Ionized Calcium Phosphorus Magnesium Direct Bilirubin AST ALT Alkaline Phosphatase Lactate Dehydrogenase Troponin T C-Reactive Protein Total Protein Albumin Prealbumin Triglycerides Cholesterol LDL Cholesterol Direct HDL Cholesterol 25-OH Vitamin D Total PTH Intact Urine pH Urine WBC (Auto) Urine Creatinine Urine Total Protein Fluid Total Protein Vancomycin Trough Rheumatoid Factor Complement C4 Miscellaneous Test Crossmatch 12/24/16 12/25/16 12/25/16 17:53 00:23 05:45 WBC RBC Hgb Hct MCV MCH MCHC RDW Plt Count Lymph % (Auto) [place] % (Auto) Lymph # [place] # Baso # Seg Neutrophils % Seg Neuts % (Manual) Lymphocytes % (Manual) Monocytes % (Manual) Eosinophils % (Manual) Basophils % (Manual) Nucleated RBC % Seg Neutrophils # Seg Neutrophils # Man Lymphocytes # (Manual) Monocytes # (Manual) Eosinophils # (Manual) Basophils # (Manual) PT INR Fibrinogen dRVVT Confirm Interp Factor V Activity POC ABG pH POC ABG pCO2 POC ABG pO2 ABG pO2 ABG HCO3 ABG Base Excess ABG Hemoglobin Oxyhemoglobin Sodium 146 H Potassium Chloride Carbon Dioxide BUN 51 H Creatinine Glucose 109 H POC Glucose 169 H 117 H Lactic Acid Calcium Ionized Calcium Phosphorus Magnesium Direct Bilirubin AST ALT Alkaline Phosphatase Lactate Dehydrogenase Troponin T C-Reactive Protein Total Protein Albumin Prealbumin Triglycerides Cholesterol LDL Cholesterol Direct HDL Cholesterol 25-OH Vitamin D Total PTH Intact Urine pH Urine WBC (Auto) Urine Creatinine Urine Total Protein Fluid Total Protein Vancomycin Trough Rheumatoid Factor Complement C4 Miscellaneous Test Crossmatch 12/25/16 12/25/16 12/25/16 06:43 11:29 17:14 WBC RBC Hgb Hct MCV MCH MCHC RDW Plt Count Lymph % (Auto) [place] % (Auto) Lymph # [place] # Baso # Seg Neutrophils % Seg Neuts % (Manual) Lymphocytes % (Manual) Monocytes % (Manual) Eosinophils % (Manual) Basophils % (Manual) Nucleated RBC % Seg Neutrophils # Seg Neutrophils # Man Lymphocytes # (Manual) Monocytes # (Manual) Eosinophils # (Manual) Basophils # (Manual) PT INR Fibrinogen dRVVT Confirm Interp Factor V Activity POC ABG pH POC ABG pCO2 POC ABG pO2 ABG pO2 ABG HCO3 ABG Base Excess ABG Hemoglobin Oxyhemoglobin Sodium Potassium Chloride Carbon Dioxide BUN Creatinine Glucose POC Glucose 117 H 128 H 120 H Lactic Acid Calcium Ionized Calcium Phosphorus Magnesium Direct Bilirubin AST ALT Alkaline Phosphatase Lactate Dehydrogenase Troponin T C-Reactive Protein Total Protein Albumin Prealbumin Triglycerides Cholesterol LDL Cholesterol Direct HDL Cholesterol 25-OH Vitamin D Total PTH Intact Urine pH Urine WBC (Auto) Urine Creatinine Urine Total Protein Fluid Total Protein Vancomycin Trough Rheumatoid Factor Complement C4 Miscellaneous Test Crossmatch 12/25/16 12/26/16 12/26/16 23:54 05:40 05:50 WBC 16.2 H RBC 2.32 L Hgb 6.2 L Hct 20.1 L MCV MCH 27 L MCHC RDW 18.6 H Plt Count Lymph % (Auto) [place] % (Auto) Lymph # [place] # Baso # Seg Neutrophils % Seg Neuts % (Manual) Lymphocytes % (Manual) Monocytes % (Manual) Eosinophils % (Manual) Basophils % (Manual) Nucleated RBC % Seg Neutrophils # Seg Neutrophils # Man Lymphocytes # (Manual) Monocytes # (Manual) Eosinophils # (Manual) Basophils # (Manual) PT INR Fibrinogen dRVVT Confirm Interp Factor V Activity POC ABG pH POC ABG pCO2 POC ABG pO2 ABG pO2 ABG HCO3 ABG Base Excess ABG Hemoglobin Oxyhemoglobin Sodium Potassium Chloride Carbon Dioxide BUN Creatinine Glucose POC Glucose 126 H 132 H Lactic Acid Calcium Ionized Calcium Phosphorus Magnesium Direct Bilirubin AST ALT Alkaline Phosphatase Lactate Dehydrogenase Troponin T C-Reactive Protein Total Protein Albumin Prealbumin Triglycerides Cholesterol LDL Cholesterol Direct HDL Cholesterol 25-OH Vitamin D Total PTH Intact Urine pH Urine WBC (Auto) Urine Creatinine Urine Total Protein Fluid Total Protein Vancomycin Trough Rheumatoid Factor Complement C4 Miscellaneous Test Crossmatch 12/26/16 12/26/16 12/26/16 05:50 12:17 12:33 WBC RBC Hgb Hct MCV MCH MCHC RDW Plt Count Lymph % (Auto) [place] % (Auto) Lymph # [place] # Baso # Seg Neutrophils % Seg Neuts % (Manual) Lymphocytes % (Manual) Monocytes % (Manual) Eosinophils % (Manual) Basophils % (Manual) Nucleated RBC % Seg Neutrophils # Seg Neutrophils # Man Lymphocytes # (Manual) Monocytes # (Manual) Eosinophils # (Manual) Basophils # (Manual) PT INR Fibrinogen dRVVT Confirm Interp Factor V Activity POC ABG pH POC ABG pCO2 POC ABG pO2 ABG pO2 ABG HCO3 ABG Base Excess ABG Hemoglobin Oxyhemoglobin Sodium Potassium Chloride Carbon Dioxide BUN 73 H Creatinine 1.3 H Glucose 113 H POC Glucose 117 H Lactic Acid Calcium Ionized Calcium Phosphorus Magnesium Direct Bilirubin AST ALT Alkaline Phosphatase Lactate Dehydrogenase Troponin T C-Reactive Protein Total Protein Albumin Prealbumin Triglycerides Cholesterol LDL Cholesterol Direct HDL Cholesterol 25-OH Vitamin D Total PTH Intact Urine pH Urine WBC (Auto) Urine Creatinine Urine Total Protein Fluid Total Protein Vancomycin Trough Rheumatoid Factor Complement C4 Miscellaneous Test Crossmatch See Detail 12/26/16 12/26/16 12/27/16 20:00 23:21 05:00 WBC RBC Hgb 8.4 L Hct 26.3 L D MCV MCH MCHC RDW Plt Count Lymph % (Auto) [place] % (Auto) Lymph # [place] # Baso # Seg Neutrophils % Seg Neuts % (Manual) Lymphocytes % (Manual) Monocytes % (Manual) Eosinophils % (Manual) Basophils % (Manual) Nucleated RBC % Seg Neutrophils # Seg Neutrophils # Man Lymphocytes # (Manual) Monocytes # (Manual) Eosinophils # (Manual) Basophils # (Manual) PT INR Fibrinogen dRVVT Confirm Interp Factor V Activity POC ABG pH POC ABG pCO2 POC ABG pO2 ABG pO2 ABG HCO3 ABG Base Excess ABG Hemoglobin Oxyhemoglobin Sodium Potassium Chloride Carbon Dioxide BUN 85 H Creatinine 1.6 H Glucose 118 H POC Glucose 124 H Lactic Acid Calcium Ionized Calcium Phosphorus 4.80 H Magnesium Direct Bilirubin AST ALT Alkaline Phosphatase Lactate Dehydrogenase Troponin T C-Reactive Protein Total Protein Albumin Prealbumin Triglycerides Cholesterol LDL Cholesterol Direct HDL Cholesterol 25-OH Vitamin D Total PTH Intact Urine pH Urine WBC (Auto) Urine Creatinine Urine Total Protein Fluid Total Protein Vancomycin Trough Rheumatoid Factor Complement C4 Miscellaneous Test Crossmatch 12/27/16 12/27/16 12/27/16 05:00 05:35 12:24 WBC RBC Hgb 7.6 L Hct 22.8 L MCV MCH MCHC RDW Plt Count Lymph % (Auto) [place] % (Auto) Lymph # [place] # Baso # Seg Neutrophils % Seg Neuts % (Manual) Lymphocytes % (Manual) Monocytes % (Manual) Eosinophils % (Manual) Basophils % (Manual) Nucleated RBC % Seg Neutrophils # Seg Neutrophils # Man Lymphocytes # (Manual) Monocytes # (Manual) Eosinophils # (Manual) Basophils # (Manual) PT INR Fibrinogen dRVVT Confirm Interp Factor V Activity POC ABG pH POC ABG pCO2 POC ABG pO2 ABG pO2 ABG HCO3 ABG Base Excess ABG Hemoglobin Oxyhemoglobin Sodium Potassium Chloride Carbon Dioxide BUN Creatinine Glucose POC Glucose 115 H 131 H Lactic Acid Calcium Ionized Calcium Phosphorus Magnesium Direct Bilirubin AST ALT Alkaline Phosphatase Lactate Dehydrogenase Troponin T C-Reactive Protein Total Protein Albumin Prealbumin Triglycerides Cholesterol LDL Cholesterol Direct HDL Cholesterol 25-OH Vitamin D Total PTH Intact Urine pH Urine WBC (Auto) Urine Creatinine Urine Total Protein Fluid Total Protein Vancomycin Trough Rheumatoid Factor Complement C4 Miscellaneous Test Crossmatch 12/27/16 12/28/16 12/28/16 17:16 00:18 04:00 WBC RBC Hgb Hct MCV MCH MCHC RDW Plt Count Lymph % (Auto) [place] % (Auto) Lymph # [place] # Baso # Seg Neutrophils % Seg Neuts % (Manual) Lymphocytes % (Manual) Monocytes % (Manual) Eosinophils % (Manual) Basophils % (Manual) Nucleated RBC % Seg Neutrophils # Seg Neutrophils # Man Lymphocytes # (Manual) Monocytes # (Manual) Eosinophils # (Manual) Basophils # (Manual) PT INR Fibrinogen dRVVT Confirm Interp Factor V Activity POC ABG pH POC ABG pCO2 POC ABG pO2 ABG pO2 ABG HCO3 ABG Base Excess ABG Hemoglobin Oxyhemoglobin Sodium Potassium 3.5 L Chloride Carbon Dioxide BUN 57 H Creatinine Glucose 118 H POC Glucose 136 H 120 H Lactic Acid Calcium 8.3 L Ionized Calcium Phosphorus Magnesium Direct Bilirubin AST ALT Alkaline Phosphatase Lactate Dehydrogenase Troponin T C-Reactive Protein Total Protein Albumin Prealbumin Triglycerides Cholesterol LDL Cholesterol Direct HDL Cholesterol 25-OH Vitamin D Total PTH Intact Urine pH Urine WBC (Auto) Urine Creatinine Urine Total Protein Fluid Total Protein Vancomycin Trough Rheumatoid Factor Complement C4 Miscellaneous Test Crossmatch 12/28/16 12/28/16 12/28/16 04:00 05:11 08:30 WBC 17.0 H RBC 2.58 L Hgb 7.1 L Hct 22.0 L MCV MCH MCHC RDW 17.6 H Plt Count Lymph % (Auto) 12.2 L [place] % (Auto) Lymph # [place] # 1.1 H Baso # Seg Neutrophils % 80.5 H Seg Neuts % (Manual) Lymphocytes % (Manual) Monocytes % (Manual) Eosinophils % (Manual) Basophils % (Manual) Nucleated RBC % Seg Neutrophils # 13.7 H Seg Neutrophils # Man Lymphocytes # (Manual) Monocytes # (Manual) Eosinophils # (Manual) Basophils # (Manual) PT 16.1 H INR 1.23 H Fibrinogen dRVVT Confirm Interp Factor V Activity POC ABG pH POC ABG pCO2 POC ABG pO2 ABG pO2 ABG HCO3 ABG Base Excess ABG Hemoglobin Oxyhemoglobin Sodium Potassium Chloride Carbon Dioxide BUN Creatinine Glucose POC Glucose 122 H Lactic Acid Calcium Ionized Calcium Phosphorus Magnesium Direct Bilirubin AST ALT Alkaline Phosphatase Lactate Dehydrogenase Troponin T C-Reactive Protein Total Protein Albumin Prealbumin Triglycerides Cholesterol LDL Cholesterol Direct HDL Cholesterol 25-OH Vitamin D Total PTH Intact Urine pH Urine WBC (Auto) Urine Creatinine Urine Total Protein Fluid Total Protein Vancomycin Trough Rheumatoid Factor Complement C4 Miscellaneous Test Crossmatch 12/28/16 12/28/16 12/28/16 12:27 16:32 23:46 WBC RBC Hgb Hct MCV MCH MCHC RDW Plt Count Lymph % (Auto) [place] % (Auto) Lymph # [place] # Baso # Seg Neutrophils % Seg Neuts % (Manual) Lymphocytes % (Manual) Monocytes % (Manual) Eosinophils % (Manual) Basophils % (Manual) Nucleated RBC % Seg Neutrophils # Seg Neutrophils # Man Lymphocytes # (Manual) Monocytes # (Manual) Eosinophils # (Manual) Basophils # (Manual) PT INR Fibrinogen dRVVT Confirm Interp Factor V Activity POC ABG pH POC ABG pCO2 POC ABG pO2 ABG pO2 ABG HCO3 ABG Base Excess ABG Hemoglobin Oxyhemoglobin Sodium Potassium Chloride Carbon Dioxide BUN Creatinine Glucose POC Glucose 127 H 117 H 108 H Lactic Acid Calcium Ionized Calcium Phosphorus Magnesium Direct Bilirubin AST ALT Alkaline Phosphatase Lactate Dehydrogenase Troponin T C-Reactive Protein Total Protein Albumin Prealbumin Triglycerides Cholesterol LDL Cholesterol Direct HDL Cholesterol 25-OH Vitamin D Total PTH Intact Urine pH Urine WBC (Auto) Urine Creatinine Urine Total Protein Fluid Total Protein Vancomycin Trough Rheumatoid Factor Complement C4 Miscellaneous Test Crossmatch 12/29/16 12/29/16 12/29/16 05:15 05:15 05:32 WBC RBC Hgb Hct MCV MCH MCHC RDW Plt Count Lymph % (Auto) [place] % (Auto) Lymph # [place] # Baso # Seg Neutrophils % Seg Neuts % (Manual) Lymphocytes % (Manual) Monocytes % (Manual) Eosinophils % (Manual) Basophils % (Manual) Nucleated RBC % Seg Neutrophils # Seg Neutrophils # Man Lymphocytes # (Manual) Monocytes # (Manual) Eosinophils # (Manual) Basophils # (Manual) PT INR Fibrinogen dRVVT Confirm Interp Factor V Activity POC ABG pH POC ABG pCO2 POC ABG pO2 ABG pO2 ABG HCO3 ABG Base Excess ABG Hemoglobin Oxyhemoglobin Sodium Potassium Chloride Carbon Dioxide BUN 74 H Creatinine 1.6 H Glucose 111 H POC Glucose 123 H Lactic Acid Calcium Ionized Calcium Phosphorus Magnesium Direct Bilirubin AST ALT Alkaline Phosphatase Lactate Dehydrogenase Troponin T C-Reactive Protein Total Protein Albumin Prealbumin 0.110 L Triglycerides Cholesterol LDL Cholesterol Direct HDL Cholesterol 25-OH Vitamin D Total PTH Intact Urine pH Urine WBC (Auto) Urine Creatinine Urine Total Protein Fluid Total Protein Vancomycin Trough Rheumatoid Factor Complement C4 Miscellaneous Test Crossmatch 12/29/16 12/29/16 12/29/16 11:43 13:45 14:00 WBC 13.8 H RBC 2.26 L Hgb 6.3 L Hct 20.4 L MCV MCH MCHC RDW 18.3 H Plt Count Lymph % (Auto) [place] % (Auto) Lymph # [place] # 0.9 H Baso # Seg Neutrophils % 78.6 H Seg Neuts % (Manual) Lymphocytes % (Manual) Monocytes % (Manual) Eosinophils % (Manual) Basophils % (Manual) Nucleated RBC % Seg Neutrophils # 10.8 H Seg Neutrophils # Man Lymphocytes # (Manual) Monocytes # (Manual) Eosinophils # (Manual) Basophils # (Manual) PT INR Fibrinogen dRVVT Confirm Interp Factor V Activity POC ABG pH POC ABG pCO2 POC ABG pO2 ABG pO2 ABG HCO3 ABG Base Excess ABG Hemoglobin Oxyhemoglobin Sodium Potassium Chloride Carbon Dioxide BUN Creatinine Glucose POC Glucose 133 H Lactic Acid Calcium Ionized Calcium Phosphorus Magnesium Direct Bilirubin AST ALT Alkaline Phosphatase Lactate Dehydrogenase Troponin T C-Reactive Protein Total Protein Albumin Prealbumin Triglycerides Cholesterol LDL Cholesterol Direct HDL Cholesterol 25-OH Vitamin D Total PTH Intact Urine pH Urine WBC (Auto) Urine Creatinine Urine Total Protein Fluid Total Protein Vancomycin Trough Rheumatoid Factor Complement C4 Miscellaneous Test Crossmatch See Detail 12/29/16 12/29/16 12/29/16 17:03 23:15 23:22 WBC RBC Hgb 7.3 L Hct 22.3 L MCV MCH MCHC RDW Plt Count Lymph % (Auto) [place] % (Auto) Lymph # [place] # Baso # Seg Neutrophils % Seg Neuts % (Manual) Lymphocytes % (Manual) Monocytes % (Manual) Eosinophils % (Manual) Basophils % (Manual) Nucleated RBC % Seg Neutrophils # Seg Neutrophils # Man Lymphocytes # (Manual) Monocytes # (Manual) Eosinophils # (Manual) Basophils # (Manual) PT INR Fibrinogen dRVVT Confirm Interp Factor V Activity POC ABG pH POC ABG pCO2 POC ABG pO2 ABG pO2 ABG HCO3 ABG Base Excess ABG Hemoglobin Oxyhemoglobin Sodium Potassium Chloride Carbon Dioxide BUN Creatinine Glucose POC Glucose 139 H 120 H Lactic Acid Calcium Ionized Calcium Phosphorus Magnesium Direct Bilirubin AST ALT Alkaline Phosphatase Lactate Dehydrogenase Troponin T C-Reactive Protein Total Protein Albumin Prealbumin Triglycerides Cholesterol LDL Cholesterol Direct HDL Cholesterol 25-OH Vitamin D Total PTH Intact Urine pH Urine WBC (Auto) Urine Creatinine Urine Total Protein Fluid Total Protein Vancomycin Trough Rheumatoid Factor Complement C4 Miscellaneous Test Crossmatch 12/30/16 12/30/16 12/30/16 04:20 04:20 05:43 WBC 15.6 H RBC 2.81 L Hgb 8.0 L Hct 24.0 L MCV MCH MCHC RDW 16.9 H Plt Count Lymph % (Auto) [place] % (Auto) Lymph # [place] # 1.0 H Baso # Seg Neutrophils % 76.2 H Seg Neuts % (Manual) Lymphocytes % (Manual) Monocytes % (Manual) Eosinophils % (Manual) Basophils % (Manual) Nucleated RBC % Seg Neutrophils # 11.9 H Seg Neutrophils # Man Lymphocytes # (Manual) Monocytes # (Manual) Eosinophils # (Manual) Basophils # (Manual) PT INR Fibrinogen dRVVT Confirm Interp Factor V Activity POC ABG pH POC ABG pCO2 POC ABG pO2 ABG pO2 ABG HCO3 ABG Base Excess ABG Hemoglobin Oxyhemoglobin Sodium Potassium Chloride Carbon Dioxide BUN 87 H Creatinine 1.8 H Glucose 119 H POC Glucose 115 H Lactic Acid Calcium Ionized Calcium Phosphorus Magnesium Direct Bilirubin AST ALT Alkaline Phosphatase Lactate Dehydrogenase Troponin T C-Reactive Protein Total Protein Albumin Prealbumin Triglycerides Cholesterol LDL Cholesterol Direct HDL Cholesterol 25-OH Vitamin D Total PTH Intact Urine pH Urine WBC (Auto) Urine Creatinine Urine Total Protein Fluid Total Protein Vancomycin Trough Rheumatoid Factor Complement C4 Miscellaneous Test Crossmatch 12/30/16 12/30/16 12/31/16 17:27 23:21 04:00 WBC RBC Hgb Hct MCV MCH MCHC RDW Plt Count Lymph % (Auto) [place] % (Auto) Lymph # [place] # Baso # Seg Neutrophils % Seg Neuts % (Manual) Lymphocytes % (Manual) Monocytes % (Manual) Eosinophils % (Manual) Basophils % (Manual) Nucleated RBC % Seg Neutrophils # Seg Neutrophils # Man Lymphocytes # (Manual) Monocytes # (Manual) Eosinophils # (Manual) Basophils # (Manual) PT INR Fibrinogen dRVVT Confirm Interp Factor V Activity POC ABG pH POC ABG pCO2 POC ABG pO2 ABG pO2 ABG HCO3 ABG Base Excess ABG Hemoglobin Oxyhemoglobin Sodium Potassium Chloride Carbon Dioxide BUN 59 H Creatinine Glucose 298 H POC Glucose 144 H 125 H Lactic Acid Calcium Ionized Calcium Phosphorus Magnesium Direct Bilirubin AST ALT Alkaline Phosphatase Lactate Dehydrogenase Troponin T C-Reactive Protein Total Protein Albumin Prealbumin Triglycerides Cholesterol LDL Cholesterol Direct HDL Cholesterol 25-OH Vitamin D Total PTH Intact Urine pH Urine WBC (Auto) Urine Creatinine Urine Total Protein Fluid Total Protein Vancomycin Trough Rheumatoid Factor Complement C4 Miscellaneous Test Crossmatch 12/31/16 12/31/16 12/31/16 05:11 12:18 18:17 WBC RBC Hgb Hct MCV MCH MCHC RDW Plt Count Lymph % (Auto) [place] % (Auto) Lymph # [place] # Baso # Seg Neutrophils % Seg Neuts % (Manual) Lymphocytes % (Manual) Monocytes % (Manual) Eosinophils % (Manual) Basophils % (Manual) Nucleated RBC % Seg Neutrophils # Seg Neutrophils # Man Lymphocytes # (Manual) Monocytes # (Manual) Eosinophils # (Manual) Basophils # (Manual) PT INR Fibrinogen dRVVT Confirm Interp Factor V Activity POC ABG pH POC ABG pCO2 POC ABG pO2 ABG pO2 ABG HCO3 ABG Base Excess ABG Hemoglobin Oxyhemoglobin Sodium Potassium Chloride Carbon Dioxide BUN Creatinine Glucose POC Glucose 167 H 125 H 133 H Lactic Acid Calcium Ionized Calcium Phosphorus Magnesium Direct Bilirubin AST ALT Alkaline Phosphatase Lactate Dehydrogenase Troponin T C-Reactive Protein Total Protein Albumin Prealbumin Triglycerides Cholesterol LDL Cholesterol Direct HDL Cholesterol 25-OH Vitamin D Total PTH Intact Urine pH Urine WBC (Auto) Urine Creatinine Urine Total Protein Fluid Total Protein Vancomycin Trough Rheumatoid Factor Complement C4 Miscellaneous Test Crossmatch 12/31/16 01/01/17 01/01/17 23:55 05:00 05:12 WBC RBC Hgb Hct MCV MCH MCHC RDW Plt Count Lymph % (Auto) [place] % (Auto) Lymph # [place] # Baso # Seg Neutrophils % Seg Neuts % (Manual) Lymphocytes % (Manual) Monocytes % (Manual) Eosinophils % (Manual) Basophils % (Manual) Nucleated RBC % Seg Neutrophils # Seg Neutrophils # Man Lymphocytes # (Manual) Monocytes # (Manual) Eosinophils # (Manual) Basophils # (Manual) PT INR Fibrinogen dRVVT Confirm Interp Factor V Activity POC ABG pH POC ABG pCO2 POC ABG pO2 ABG pO2 ABG HCO3 ABG Base Excess ABG Hemoglobin Oxyhemoglobin Sodium Potassium Chloride Carbon Dioxide BUN 76 H Creatinine 1.5 H Glucose 109 H POC Glucose 129 H 129 H Lactic Acid Calcium Ionized Calcium Phosphorus Magnesium Direct Bilirubin AST ALT Alkaline Phosphatase 536 H Lactate Dehydrogenase Troponin T C-Reactive Protein Total Protein Albumin 1.5 L Prealbumin Triglycerides Cholesterol LDL Cholesterol Direct HDL Cholesterol 25-OH Vitamin D Total PTH Intact Urine pH Urine WBC (Auto) Urine Creatinine Urine Total Protein Fluid Total Protein Vancomycin Trough Rheumatoid Factor Complement C4 Miscellaneous Test Crossmatch 01/01/17 01/01/17 01/01/17 12:25 17:01 23:32 WBC RBC Hgb Hct MCV MCH MCHC RDW Plt Count Lymph % (Auto) [place] % (Auto) Lymph # [place] # Baso # Seg Neutrophils % Seg Neuts % (Manual) Lymphocytes % (Manual) Monocytes % (Manual) Eosinophils % (Manual) Basophils % (Manual) Nucleated RBC % Seg Neutrophils # Seg Neutrophils # Man Lymphocytes # (Manual) Monocytes # (Manual) Eosinophils # (Manual) Basophils # (Manual) PT INR Fibrinogen dRVVT Confirm Interp Factor V Activity POC ABG pH POC ABG pCO2 POC ABG pO2 ABG pO2 ABG HCO3 ABG Base Excess ABG Hemoglobin Oxyhemoglobin Sodium Potassium Chloride Carbon Dioxide BUN Creatinine Glucose POC Glucose 140 H 142 H 112 H Lactic Acid Calcium Ionized Calcium Phosphorus Magnesium Direct Bilirubin AST ALT Alkaline Phosphatase Lactate Dehydrogenase Troponin T C-Reactive Protein Total Protein Albumin Prealbumin Triglycerides Cholesterol LDL Cholesterol Direct HDL Cholesterol 25-OH Vitamin D Total PTH Intact Urine pH Urine WBC (Auto) Urine Creatinine Urine Total Protein Fluid Total Protein Vancomycin Trough Rheumatoid Factor Complement C4 Miscellaneous Test Crossmatch 01/02/17 01/02/17 01/02/17 04:56 06:00 11:37 WBC RBC Hgb Hct MCV MCH MCHC RDW Plt Count Lymph % (Auto) [place] % (Auto) Lymph # [place] # Baso # Seg Neutrophils % Seg Neuts % (Manual) Lymphocytes % (Manual) Monocytes % (Manual) Eosinophils % (Manual) Basophils % (Manual) Nucleated RBC % Seg Neutrophils # Seg Neutrophils # Man Lymphocytes # (Manual) Monocytes # (Manual) Eosinophils # (Manual) Basophils # (Manual) PT INR Fibrinogen dRVVT Confirm Interp Factor V Activity POC ABG pH POC ABG pCO2 POC ABG pO2 ABG pO2 ABG HCO3 ABG Base Excess ABG Hemoglobin Oxyhemoglobin Sodium Potassium Chloride Carbon Dioxide BUN 88 H Creatinine 1.7 H Glucose 113 H POC Glucose 136 H 200 H Lactic Acid Calcium Ionized Calcium Phosphorus Magnesium Direct Bilirubin AST ALT Alkaline Phosphatase Lactate Dehydrogenase Troponin T C-Reactive Protein Total Protein Albumin Prealbumin Triglycerides Cholesterol LDL Cholesterol Direct HDL Cholesterol 25-OH Vitamin D Total PTH Intact Urine pH Urine WBC (Auto) Urine Creatinine Urine Total Protein Fluid Total Protein Vancomycin Trough Rheumatoid Factor Complement C4 Miscellaneous Test Crossmatch 01/02/17 01/02/17 01/03/17 17:42 22:52 04:54 WBC RBC Hgb Hct MCV MCH MCHC RDW Plt Count Lymph % (Auto) [place] % (Auto) Lymph # [place] # Baso # Seg Neutrophils % Seg Neuts % (Manual) Lymphocytes % (Manual) Monocytes % (Manual) Eosinophils % (Manual) Basophils % (Manual) Nucleated RBC % Seg Neutrophils # Seg Neutrophils # Man Lymphocytes # (Manual) Monocytes # (Manual) Eosinophils # (Manual) Basophils # (Manual) PT INR Fibrinogen dRVVT Confirm Interp Factor V Activity POC ABG pH POC ABG pCO2 POC ABG pO2 ABG pO2 ABG HCO3 ABG Base Excess ABG Hemoglobin Oxyhemoglobin Sodium Potassium Chloride Carbon Dioxide BUN Creatinine Glucose POC Glucose 112 H 133 H 111 H Lactic Acid Calcium Ionized Calcium Phosphorus Magnesium Direct Bilirubin AST ALT Alkaline Phosphatase Lactate Dehydrogenase Troponin T C-Reactive Protein Total Protein Albumin Prealbumin Triglycerides Cholesterol LDL Cholesterol Direct HDL Cholesterol 25-OH Vitamin D Total PTH Intact Urine pH Urine WBC (Auto) Urine Creatinine Urine Total Protein Fluid Total Protein Vancomycin Trough Rheumatoid Factor Complement C4 Miscellaneous Test Crossmatch 01/03/17 01/03/17 01/03/17 05:00 05:00 14:02 WBC 11.2 H RBC 2.56 L Hgb 7.2 L Hct 22.3 L MCV MCH MCHC RDW 17.3 H Plt Count Lymph % (Auto) [place] % (Auto) 10.0 H Lymph # [place] # 1.1 H Baso # Seg Neutrophils % 70.5 H Seg Neuts % (Manual) Lymphocytes % (Manual) Monocytes % (Manual) Eosinophils % (Manual) Basophils % (Manual) Nucleated RBC % Seg Neutrophils # 7.9 H Seg Neutrophils # Man Lymphocytes # (Manual) Monocytes # (Manual) Eosinophils # (Manual) Basophils # (Manual) PT INR Fibrinogen dRVVT Confirm Interp Factor V Activity POC ABG pH POC ABG pCO2 POC ABG pO2 ABG pO2 ABG HCO3 ABG Base Excess ABG Hemoglobin Oxyhemoglobin Sodium Potassium Chloride Carbon Dioxide BUN 60 H Creatinine 1.3 H Glucose 110 H POC Glucose 119 H Lactic Acid Calcium Ionized Calcium Phosphorus Magnesium Direct Bilirubin AST ALT Alkaline Phosphatase Lactate Dehydrogenase Troponin T C-Reactive Protein Total Protein Albumin Prealbumin Triglycerides Cholesterol LDL Cholesterol Direct HDL Cholesterol 25-OH Vitamin D Total PTH Intact Urine pH Urine WBC (Auto) Urine Creatinine Urine Total Protein Fluid Total Protein Vancomycin Trough Rheumatoid Factor Complement C4 Miscellaneous Test Crossmatch 01/03/17 01/03/17 01/04/17 18:13 23:40 05:57 WBC RBC Hgb Hct MCV MCH MCHC RDW Plt Count Lymph % (Auto) [place] % (Auto) Lymph # [place] # Baso # Seg Neutrophils % Seg Neuts % (Manual) Lymphocytes % (Manual) Monocytes % (Manual) Eosinophils % (Manual) Basophils % (Manual) Nucleated RBC % Seg Neutrophils # Seg Neutrophils # Man Lymphocytes # (Manual) Monocytes # (Manual) Eosinophils # (Manual) Basophils # (Manual) PT INR Fibrinogen dRVVT Confirm Interp Factor V Activity POC ABG pH POC ABG pCO2 POC ABG pO2 ABG pO2 ABG HCO3 ABG Base Excess ABG Hemoglobin Oxyhemoglobin Sodium Potassium Chloride Carbon Dioxide BUN Creatinine Glucose POC Glucose 107 H 129 H 111 H Lactic Acid Calcium Ionized Calcium Phosphorus Magnesium Direct Bilirubin AST ALT Alkaline Phosphatase Lactate Dehydrogenase Troponin T C-Reactive Protein Total Protein Albumin Prealbumin Triglycerides Cholesterol LDL Cholesterol Direct HDL Cholesterol 25-OH Vitamin D Total PTH Intact Urine pH Urine WBC (Auto) Urine Creatinine Urine Total Protein Fluid Total Protein Vancomycin Trough Rheumatoid Factor Complement C4 Miscellaneous Test Crossmatch 01/04/17 01/04/17 01/04/17 12:46 15:27 17:11 WBC RBC Hgb Hct MCV MCH MCHC RDW Plt Count Lymph % (Auto) [place] % (Auto) Lymph # [place] # Baso # Seg Neutrophils % Seg Neuts % (Manual) Lymphocytes % (Manual) Monocytes % (Manual) Eosinophils % (Manual) Basophils % (Manual) Nucleated RBC % Seg Neutrophils # Seg Neutrophils # Man Lymphocytes # (Manual) Monocytes # (Manual) Eosinophils # (Manual) Basophils # (Manual) PT INR Fibrinogen dRVVT Confirm Interp Factor V Activity POC ABG pH POC ABG pCO2 POC ABG pO2 ABG pO2 ABG HCO3 ABG Base Excess ABG Hemoglobin Oxyhemoglobin Sodium Potassium Chloride Carbon Dioxide BUN 43 H Creatinine Glucose 124 H POC Glucose 159 H 125 H Lactic Acid Calcium 8.0 L Ionized Calcium Phosphorus 2.10 L Magnesium Direct Bilirubin AST ALT Alkaline Phosphatase Lactate Dehydrogenase Troponin T C-Reactive Protein Total Protein Albumin Prealbumin Triglycerides Cholesterol LDL Cholesterol Direct HDL Cholesterol 25-OH Vitamin D Total PTH Intact Urine pH Urine WBC (Auto) Urine Creatinine Urine Total Protein Fluid Total Protein Vancomycin Trough Rheumatoid Factor Complement C4 Miscellaneous Test Crossmatch 01/04/17 01/05/17 01/05/17 23:31 04:00 05:46 WBC RBC Hgb Hct MCV MCH MCHC RDW Plt Count Lymph % (Auto) [place] % (Auto) Lymph # [place] # Baso # Seg Neutrophils % Seg Neuts % (Manual) Lymphocytes % (Manual) Monocytes % (Manual) Eosinophils % (Manual) Basophils % (Manual) Nucleated RBC % Seg Neutrophils # Seg Neutrophils # Man Lymphocytes # (Manual) Monocytes # (Manual) Eosinophils # (Manual) Basophils # (Manual) PT INR Fibrinogen dRVVT Confirm Interp Factor V Activity POC ABG pH POC ABG pCO2 POC ABG pO2 ABG pO2 ABG HCO3 ABG Base Excess ABG Hemoglobin Oxyhemoglobin Sodium Potassium Chloride Carbon Dioxide BUN 52 H Creatinine 1.3 H Glucose 113 H POC Glucose 123 H 118 H Lactic Acid Calcium Ionized Calcium Phosphorus 2.40 L Magnesium Direct Bilirubin AST ALT Alkaline Phosphatase Lactate Dehydrogenase Troponin T C-Reactive Protein Total Protein Albumin Prealbumin Triglycerides Cholesterol LDL Cholesterol Direct HDL Cholesterol 25-OH Vitamin D Total PTH Intact Urine pH Urine WBC (Auto) Urine Creatinine Urine Total Protein Fluid Total Protein Vancomycin Trough Rheumatoid Factor Complement C4 Miscellaneous Test Crossmatch 01/05/17 01/05/17 01/05/17 11:41 17:48 23:27 WBC RBC Hgb Hct MCV MCH MCHC RDW Plt Count Lymph % (Auto) [place] % (Auto) Lymph # [place] # Baso # Seg Neutrophils % Seg Neuts % (Manual) Lymphocytes % (Manual) Monocytes % (Manual) Eosinophils % (Manual) Basophils % (Manual) Nucleated RBC % Seg Neutrophils # Seg Neutrophils # Man Lymphocytes # (Manual) Monocytes # (Manual) Eosinophils # (Manual) Basophils # (Manual) PT INR Fibrinogen dRVVT Confirm Interp Factor V Activity POC ABG pH POC ABG pCO2 POC ABG pO2 ABG pO2 ABG HCO3 ABG Base Excess ABG Hemoglobin Oxyhemoglobin Sodium Potassium Chloride Carbon Dioxide BUN Creatinine Glucose POC Glucose 163 H 142 H 155 H Lactic Acid Calcium Ionized Calcium Phosphorus Magnesium Direct Bilirubin AST ALT Alkaline Phosphatase Lactate Dehydrogenase Troponin T C-Reactive Protein Total Protein Albumin Prealbumin Triglycerides Cholesterol LDL Cholesterol Direct HDL Cholesterol 25-OH Vitamin D Total PTH Intact Urine pH Urine WBC (Auto) Urine Creatinine Urine Total Protein Fluid Total Protein Vancomycin Trough Rheumatoid Factor Complement C4 Miscellaneous Test Crossmatch 01/06/17 01/06/17 01/06/17 05:20 07:35 11:18 WBC RBC Hgb Hct MCV MCH MCHC RDW Plt Count Lymph % (Auto) [place] % (Auto) Lymph # [place] # Baso # Seg Neutrophils % Seg Neuts % (Manual) Lymphocytes % (Manual) Monocytes % (Manual) Eosinophils % (Manual) Basophils % (Manual) Nucleated RBC % Seg Neutrophils # Seg Neutrophils # Man Lymphocytes # (Manual) Monocytes # (Manual) Eosinophils # (Manual) Basophils # (Manual) PT INR Fibrinogen dRVVT Confirm Interp Factor V Activity POC ABG pH POC ABG pCO2 POC ABG pO2 ABG pO2 ABG HCO3 ABG Base Excess ABG Hemoglobin Oxyhemoglobin Sodium Potassium Chloride Carbon Dioxide BUN 74 H Creatinine 1.6 H Glucose 135 H POC Glucose 108 H 149 H Lactic Acid Calcium Ionized Calcium Phosphorus Magnesium Direct Bilirubin AST ALT Alkaline Phosphatase Lactate Dehydrogenase Troponin T C-Reactive Protein Total Protein Albumin Prealbumin Triglycerides Cholesterol LDL Cholesterol Direct HDL Cholesterol 25-OH Vitamin D Total PTH Intact Urine pH Urine WBC (Auto) Urine Creatinine Urine Total Protein Fluid Total Protein Vancomycin Trough Rheumatoid Factor Complement C4 Miscellaneous Test Crossmatch 01/06/17 01/07/17 01/07/17 17:17 00:23 05:31 WBC RBC Hgb Hct MCV MCH MCHC RDW Plt Count Lymph % (Auto) [place] % (Auto) Lymph # [place] # Baso # Seg Neutrophils % Seg Neuts % (Manual) Lymphocytes % (Manual) Monocytes % (Manual) Eosinophils % (Manual) Basophils % (Manual) Nucleated RBC % Seg Neutrophils # Seg Neutrophils # Man Lymphocytes # (Manual) Monocytes # (Manual) Eosinophils # (Manual) Basophils # (Manual) PT INR Fibrinogen dRVVT Confirm Interp Factor V Activity POC ABG pH POC ABG pCO2 POC ABG pO2 ABG pO2 ABG HCO3 ABG Base Excess ABG Hemoglobin Oxyhemoglobin Sodium Potassium Chloride Carbon Dioxide BUN Creatinine Glucose POC Glucose 146 H 165 H 153 H Lactic Acid Calcium Ionized Calcium Phosphorus Magnesium Direct Bilirubin AST ALT Alkaline Phosphatase Lactate Dehydrogenase Troponin T C-Reactive Protein Total Protein Albumin Prealbumin Triglycerides Cholesterol LDL Cholesterol Direct HDL Cholesterol 25-OH Vitamin D Total PTH Intact Urine pH Urine WBC (Auto) Urine Creatinine Urine Total Protein Fluid Total Protein Vancomycin Trough Rheumatoid Factor Complement C4 Miscellaneous Test Crossmatch 01/07/17 01/07/17 01/07/17 06:00 11:39 17:11 WBC RBC Hgb Hct MCV MCH MCHC RDW Plt Count Lymph % (Auto) [place] % (Auto) Lymph # [place] # Baso # Seg Neutrophils % Seg Neuts % (Manual) Lymphocytes % (Manual) Monocytes % (Manual) Eosinophils % (Manual) Basophils % (Manual) Nucleated RBC % Seg Neutrophils # Seg Neutrophils # Man Lymphocytes # (Manual) Monocytes # (Manual) Eosinophils # (Manual) Basophils # (Manual) PT INR Fibrinogen dRVVT Confirm Interp Factor V Activity POC ABG pH POC ABG pCO2 POC ABG pO2 ABG pO2 ABG HCO3 ABG Base Excess ABG Hemoglobin Oxyhemoglobin Sodium Potassium Chloride Carbon Dioxide BUN 42 H Creatinine Glucose 175 H POC Glucose 163 H 163 H Lactic Acid Calcium Ionized Calcium Phosphorus 2.40 L D Magnesium Direct Bilirubin AST ALT Alkaline Phosphatase Lactate Dehydrogenase Troponin T C-Reactive Protein Total Protein Albumin Prealbumin Triglycerides Cholesterol LDL Cholesterol Direct HDL Cholesterol 25-OH Vitamin D Total PTH Intact Urine pH Urine WBC (Auto) Urine Creatinine Urine Total Protein Fluid Total Protein Vancomycin Trough Rheumatoid Factor Complement C4 Miscellaneous Test Crossmatch 01/07/17 01/08/17 01/08/17 23:40 05:00 05:00 WBC 27.4 H RBC 2.27 L Hgb 6.1 L Hct 20.4 L MCV MCH 27 L MCHC RDW 17.8 H Plt Count Lymph % (Auto) [place] % (Auto) Lymph # [place] # Baso # Seg Neutrophils % Seg Neuts % (Manual) Lymphocytes % (Manual) Monocytes % (Manual) Eosinophils % (Manual) Basophils % (Manual) Nucleated RBC % Seg Neutrophils # Seg Neutrophils # Man Lymphocytes # (Manual) Monocytes # (Manual) Eosinophils # (Manual) Basophils # (Manual) PT INR Fibrinogen dRVVT Confirm Interp Factor V Activity POC ABG pH POC ABG pCO2 POC ABG pO2 ABG pO2 ABG HCO3 ABG Base Excess ABG Hemoglobin Oxyhemoglobin Sodium Potassium Chloride Carbon Dioxide 16 L D BUN 62 H Creatinine 1.6 H D Glucose 103 H POC Glucose 135 H Lactic Acid Calcium Ionized Calcium Phosphorus Magnesium Direct Bilirubin AST ALT Alkaline Phosphatase Lactate Dehydrogenase Troponin T C-Reactive Protein Total Protein Albumin Prealbumin Triglycerides Cholesterol LDL Cholesterol Direct HDL Cholesterol 25-OH Vitamin D Total PTH Intact Urine pH Urine WBC (Auto) Urine Creatinine Urine Total Protein Fluid Total Protein Vancomycin Trough Rheumatoid Factor Complement C4 Miscellaneous Test Crossmatch 01/08/17 01/08/17 01/08/17 05:25 10:37 10:37 WBC RBC Hgb Hct MCV MCH MCHC RDW Plt Count Lymph % (Auto) [place] % (Auto) Lymph # [place] # Baso # Seg Neutrophils % Seg Neuts % (Manual) Lymphocytes % (Manual) Monocytes % (Manual) Eosinophils % (Manual) Basophils % (Manual) Nucleated RBC % Seg Neutrophils # Seg Neutrophils # Man Lymphocytes # (Manual) Monocytes # (Manual) Eosinophils # (Manual) Basophils # (Manual) PT INR Fibrinogen dRVVT Confirm Interp Factor V Activity POC ABG pH POC ABG pCO2 POC ABG pO2 ABG pO2 ABG HCO3 ABG Base Excess ABG Hemoglobin Oxyhemoglobin Sodium Potassium Chloride Carbon Dioxide BUN Creatinine Glucose POC Glucose 106 H Lactic Acid Calcium Ionized Calcium Phosphorus Magnesium Direct Bilirubin AST ALT Alkaline Phosphatase Lactate Dehydrogenase Troponin T C-Reactive Protein 24.40 H Total Protein Albumin Prealbumin Triglycerides Cholesterol LDL Cholesterol Direct HDL Cholesterol 25-OH Vitamin D Total PTH Intact Urine pH Urine WBC (Auto) Urine Creatinine Urine Total Protein Fluid Total Protein Vancomycin Trough Rheumatoid Factor Complement C4 Miscellaneous Test Crossmatch See Detail 01/08/17 01/08/17 01/08/17 10:37 11:33 15:15 WBC RBC Hgb Hct MCV MCH MCHC RDW Plt Count Lymph % (Auto) [place] % (Auto) Lymph # [place] # Baso # Seg Neutrophils % Seg Neuts % (Manual) Lymphocytes % (Manual) Monocytes % (Manual) Eosinophils % (Manual) Basophils % (Manual) Nucleated RBC % Seg Neutrophils # Seg Neutrophils # Man Lymphocytes # (Manual) Monocytes # (Manual) Eosinophils # (Manual) Basophils # (Manual) PT INR Fibrinogen dRVVT Confirm Interp Factor V Activity POC ABG pH POC ABG pCO2 POC ABG pO2 ABG pO2 ABG HCO3 ABG Base Excess ABG Hemoglobin Oxyhemoglobin Sodium Potassium Chloride Carbon Dioxide BUN Creatinine Glucose POC Glucose 157 H Lactic Acid 9.70 H* 9.10 H* Calcium Ionized Calcium Phosphorus Magnesium Direct Bilirubin AST ALT Alkaline Phosphatase Lactate Dehydrogenase Troponin T C-Reactive Protein Total Protein Albumin Prealbumin Triglycerides Cholesterol LDL Cholesterol Direct HDL Cholesterol 25-OH Vitamin D Total PTH Intact Urine pH Urine WBC (Auto) Urine Creatinine Urine Total Protein Fluid Total Protein Vancomycin Trough Rheumatoid Factor Complement C4 Miscellaneous Test Crossmatch 01/08/17 01/08/17 01/09/17 17:19 23:12 04:40 WBC RBC Hgb Hct MCV MCH MCHC RDW Plt Count Lymph % (Auto) [place] % (Auto) Lymph # [place] # Baso # Seg Neutrophils % Seg Neuts % (Manual) Lymphocytes % (Manual) Monocytes % (Manual) Eosinophils % (Manual) Basophils % (Manual) Nucleated RBC % Seg Neutrophils # Seg Neutrophils # Man Lymphocytes # (Manual) Monocytes # (Manual) Eosinophils # (Manual) Basophils # (Manual) PT INR Fibrinogen dRVVT Confirm Interp Factor V Activity POC ABG pH POC ABG pCO2 POC ABG pO2 ABG pO2 ABG HCO3 ABG Base Excess ABG Hemoglobin Oxyhemoglobin Sodium 147 H Potassium Chloride Carbon Dioxide BUN 82 H Creatinine 1.8 H Glucose 137 H POC Glucose 164 H 157 H Lactic Acid Calcium Ionized Calcium Phosphorus Magnesium Direct Bilirubin AST ALT Alkaline Phosphatase Lactate Dehydrogenase Troponin T C-Reactive Protein Total Protein Albumin Prealbumin Triglycerides Cholesterol LDL Cholesterol Direct HDL Cholesterol 25-OH Vitamin D Total PTH Intact Urine pH Urine WBC (Auto) Urine Creatinine Urine Total Protein Fluid Total Protein Vancomycin Trough Rheumatoid Factor Complement C4 Miscellaneous Test Crossmatch 01/09/17 01/09/17 01/09/17 05:42 08:22 10:57 WBC RBC Hgb Hct MCV MCH MCHC RDW Plt Count Lymph % (Auto) [place] % (Auto) Lymph # [place] # Baso # Seg Neutrophils % Seg Neuts % (Manual) Lymphocytes % (Manual) Monocytes % (Manual) Eosinophils % (Manual) Basophils % (Manual) Nucleated RBC % Seg Neutrophils # Seg Neutrophils # Man Lymphocytes # (Manual) Monocytes # (Manual) Eosinophils # (Manual) Basophils # (Manual) PT INR Fibrinogen dRVVT Confirm Interp Factor V Activity POC ABG pH POC ABG pCO2 POC ABG pO2 ABG pO2 ABG HCO3 ABG Base Excess ABG Hemoglobin Oxyhemoglobin Sodium Potassium Chloride Carbon Dioxide BUN Creatinine Glucose POC Glucose 156 H 122 H Lactic Acid 2.30 H* Calcium Ionized Calcium Phosphorus Magnesium Direct Bilirubin AST ALT Alkaline Phosphatase Lactate Dehydrogenase Troponin T C-Reactive Protein Total Protein Albumin Prealbumin Triglycerides Cholesterol LDL Cholesterol Direct HDL Cholesterol 25-OH Vitamin D Total PTH Intact Urine pH Urine WBC (Auto) Urine Creatinine Urine Total Protein Fluid Total Protein Vancomycin Trough Rheumatoid Factor Complement C4 Miscellaneous Test Crossmatch 01/09/17 01/09/17 01/09/17 13:30 17:14 18:45 WBC RBC Hgb Hct MCV MCH MCHC RDW Plt Count Lymph % (Auto) [place] % (Auto) Lymph # [place] # Baso # Seg Neutrophils % Seg Neuts % (Manual) Lymphocytes % (Manual) Monocytes % (Manual) Eosinophils % (Manual) Basophils % (Manual) Nucleated RBC % Seg Neutrophils # Seg Neutrophils # Man Lymphocytes # (Manual) Monocytes # (Manual) Eosinophils # (Manual) Basophils # (Manual) PT INR Fibrinogen dRVVT Confirm Interp Factor V Activity POC ABG pH POC ABG pCO2 POC ABG pO2 ABG pO2 ABG HCO3 ABG Base Excess ABG Hemoglobin Oxyhemoglobin Sodium Potassium Chloride Carbon Dioxide BUN Creatinine Glucose POC Glucose 127 H Lactic Acid Calcium Ionized Calcium Phosphorus Magnesium Direct Bilirubin AST ALT Alkaline Phosphatase Lactate Dehydrogenase Troponin T C-Reactive Protein 24.70 H Total Protein Albumin Prealbumin Triglycerides Cholesterol LDL Cholesterol Direct HDL Cholesterol 25-OH Vitamin D Total PTH Intact Urine pH Urine WBC (Auto) Urine Creatinine Urine Total Protein Fluid Total Protein Vancomycin Trough Rheumatoid Factor Complement C4 Miscellaneous Test Flexitest 1 H Crossmatch 01/10/17 01/10/17 01/10/17 01:21 04:00 04:00 WBC 18.1 H RBC 3.22 L Hgb 8.8 L Hct 27.0 L D MCV MCH 27 L MCHC RDW 17.0 H Plt Count Lymph % (Auto) [place] % (Auto) Lymph # [place] # Baso # Seg Neutrophils % Seg Neuts % (Manual) Lymphocytes % (Manual) Monocytes % (Manual) Eosinophils % (Manual) Basophils % (Manual) Nucleated RBC % Seg Neutrophils # Seg Neutrophils # Man Lymphocytes # (Manual) Monocytes # (Manual) Eosinophils # (Manual) Basophils # (Manual) PT INR Fibrinogen dRVVT Confirm Interp Factor V Activity POC ABG pH POC ABG pCO2 POC ABG pO2 ABG pO2 ABG HCO3 ABG Base Excess ABG Hemoglobin Oxyhemoglobin Sodium Potassium Chloride Carbon Dioxide BUN 59 H Creatinine 1.3 H Glucose 122 H POC Glucose 160 H Lactic Acid Calcium Ionized Calcium Phosphorus Magnesium Direct Bilirubin AST ALT Alkaline Phosphatase Lactate Dehydrogenase Troponin T C-Reactive Protein Total Protein Albumin Prealbumin Triglycerides Cholesterol LDL Cholesterol Direct HDL Cholesterol 25-OH Vitamin D Total PTH Intact Urine pH Urine WBC (Auto) Urine Creatinine Urine Total Protein Fluid Total Protein Vancomycin Trough Rheumatoid Factor Complement C4 Miscellaneous Test Crossmatch 01/10/17 01/10/17 01/10/17 05:36 12:14 17:55 WBC RBC Hgb Hct MCV MCH MCHC RDW Plt Count Lymph % (Auto) [place] % (Auto) Lymph # [place] # Baso # Seg Neutrophils % Seg Neuts % (Manual) Lymphocytes % (Manual) Monocytes % (Manual) Eosinophils % (Manual) Basophils % (Manual) Nucleated RBC % Seg Neutrophils # Seg Neutrophils # Man Lymphocytes # (Manual) Monocytes # (Manual) Eosinophils # (Manual) Basophils # (Manual) PT INR Fibrinogen dRVVT Confirm Interp Factor V Activity POC ABG pH POC ABG pCO2 POC ABG pO2 ABG pO2 ABG HCO3 ABG Base Excess ABG Hemoglobin Oxyhemoglobin Sodium Potassium Chloride Carbon Dioxide BUN Creatinine Glucose POC Glucose 163 H 120 H 144 H Lactic Acid Calcium Ionized Calcium Phosphorus Magnesium Direct Bilirubin AST ALT Alkaline Phosphatase Lactate Dehydrogenase Troponin T C-Reactive Protein Total Protein Albumin Prealbumin Triglycerides Cholesterol LDL Cholesterol Direct HDL Cholesterol 25-OH Vitamin D Total PTH Intact Urine pH Urine WBC (Auto) Urine Creatinine Urine Total Protein Fluid Total Protein Vancomycin Trough Rheumatoid Factor Complement C4 Miscellaneous Test Crossmatch 01/11/17 01/11/17 01/11/17 00:09 04:00 04:00 WBC 15.8 H RBC 3.04 L Hgb 8.2 L Hct 25.5 L MCV MCH 27 L MCHC RDW 17.3 H Plt Count Lymph % (Auto) [place] % (Auto) Lymph # [place] # Baso # Seg Neutrophils % Seg Neuts % (Manual) Lymphocytes % (Manual) Monocytes % (Manual) Eosinophils % (Manual) Basophils % (Manual) Nucleated RBC % Seg Neutrophils # Seg Neutrophils # Man Lymphocytes # (Manual) Monocytes # (Manual) Eosinophils # (Manual) Basophils # (Manual) PT INR Fibrinogen dRVVT Confirm Interp Factor V Activity POC ABG pH POC ABG pCO2 POC ABG pO2 ABG pO2 ABG HCO3 ABG Base Excess ABG Hemoglobin Oxyhemoglobin Sodium Potassium Chloride Carbon Dioxide BUN 78 H Creatinine 1.6 H Glucose 109 H POC Glucose 122 H Lactic Acid Calcium Ionized Calcium Phosphorus Magnesium Direct Bilirubin AST ALT Alkaline Phosphatase Lactate Dehydrogenase Troponin T C-Reactive Protein Total Protein Albumin Prealbumin Triglycerides Cholesterol LDL Cholesterol Direct HDL Cholesterol 25-OH Vitamin D Total PTH Intact Urine pH Urine WBC (Auto) Urine Creatinine Urine Total Protein Fluid Total Protein Vancomycin Trough Rheumatoid Factor Complement C4 Miscellaneous Test Crossmatch 01/11/17 01/11/17 01/11/17 12:46 18:23 23:42 WBC RBC Hgb Hct MCV MCH MCHC RDW Plt Count Lymph % (Auto) [place] % (Auto) Lymph # [place] # Baso # Seg Neutrophils % Seg Neuts % (Manual) Lymphocytes % (Manual) Monocytes % (Manual) Eosinophils % (Manual) Basophils % (Manual) Nucleated RBC % Seg Neutrophils # Seg Neutrophils # Man Lymphocytes # (Manual) Monocytes # (Manual) Eosinophils # (Manual) Basophils # (Manual) PT INR Fibrinogen dRVVT Confirm Interp Factor V Activity POC ABG pH POC ABG pCO2 POC ABG pO2 ABG pO2 ABG HCO3 ABG Base Excess ABG Hemoglobin Oxyhemoglobin Sodium Potassium Chloride Carbon Dioxide BUN Creatinine Glucose POC Glucose 148 H 125 H 124 H Lactic Acid Calcium Ionized Calcium Phosphorus Magnesium Direct Bilirubin AST ALT Alkaline Phosphatase Lactate Dehydrogenase Troponin T C-Reactive Protein Total Protein Albumin Prealbumin Triglycerides Cholesterol LDL Cholesterol Direct HDL Cholesterol 25-OH Vitamin D Total PTH Intact Urine pH Urine WBC (Auto) Urine Creatinine Urine Total Protein Fluid Total Protein Vancomycin Trough Rheumatoid Factor Complement C4 Miscellaneous Test Crossmatch 01/12/17 01/12/17 01/12/17 04:30 04:30 05:47 WBC 15.8 H RBC 3.31 L Hgb 8.9 L Hct 27.9 L MCV MCH 27 L MCHC RDW 17.4 H Plt Count Lymph % (Auto) [place] % (Auto) Lymph # [place] # Baso # Seg Neutrophils % Seg Neuts % (Manual) Lymphocytes % (Manual) Monocytes % (Manual) Eosinophils % (Manual) Basophils % (Manual) Nucleated RBC % Seg Neutrophils # Seg Neutrophils # Man Lymphocytes # (Manual) Monocytes # (Manual) Eosinophils # (Manual) Basophils # (Manual) PT INR Fibrinogen dRVVT Confirm Interp Factor V Activity POC ABG pH POC ABG pCO2 POC ABG pO2 ABG pO2 ABG HCO3 ABG Base Excess ABG Hemoglobin Oxyhemoglobin Sodium Potassium Chloride Carbon Dioxide BUN 57 H Creatinine Glucose 121 H POC Glucose 110 H Lactic Acid Calcium Ionized Calcium Phosphorus 2.10 L Magnesium Direct Bilirubin AST ALT Alkaline Phosphatase Lactate Dehydrogenase Troponin T C-Reactive Protein Total Protein Albumin Prealbumin Triglycerides Cholesterol LDL Cholesterol Direct HDL Cholesterol 25-OH Vitamin D Total PTH Intact Urine pH Urine WBC (Auto) Urine Creatinine Urine Total Protein Fluid Total Protein Vancomycin Trough Rheumatoid Factor Complement C4 Miscellaneous Test Crossmatch 01/12/17 01/12/17 01/12/17 11:35 17:45 23:14 WBC RBC Hgb Hct MCV MCH MCHC RDW Plt Count Lymph % (Auto) [place] % (Auto) Lymph # [place] # Baso # Seg Neutrophils % Seg Neuts % (Manual) Lymphocytes % (Manual) Monocytes % (Manual) Eosinophils % (Manual) Basophils % (Manual) Nucleated RBC % Seg Neutrophils # Seg Neutrophils # Man Lymphocytes # (Manual) Monocytes # (Manual) Eosinophils # (Manual) Basophils # (Manual) PT INR Fibrinogen dRVVT Confirm Interp Factor V Activity POC ABG pH POC ABG pCO2 POC ABG pO2 ABG pO2 ABG HCO3 ABG Base Excess ABG Hemoglobin Oxyhemoglobin Sodium Potassium Chloride Carbon Dioxide BUN Creatinine Glucose POC Glucose 146 H 117 H 123 H Lactic Acid Calcium Ionized Calcium Phosphorus Magnesium Direct Bilirubin AST ALT Alkaline Phosphatase Lactate Dehydrogenase Troponin T C-Reactive Protein Total Protein Albumin Prealbumin Triglycerides Cholesterol LDL Cholesterol Direct HDL Cholesterol 25-OH Vitamin D Total PTH Intact Urine pH Urine WBC (Auto) Urine Creatinine Urine Total Protein Fluid Total Protein Vancomycin Trough Rheumatoid Factor Complement C4 Miscellaneous Test Crossmatch 01/13/17 01/13/17 01/13/17 05:32 06:00 12:10 WBC RBC Hgb Hct MCV MCH MCHC RDW Plt Count Lymph % (Auto) [place] % (Auto) Lymph # [place] # Baso # Seg Neutrophils % Seg Neuts % (Manual) Lymphocytes % (Manual) Monocytes % (Manual) Eosinophils % (Manual) Basophils % (Manual) Nucleated RBC % Seg Neutrophils # Seg Neutrophils # Man Lymphocytes # (Manual) Monocytes # (Manual) Eosinophils # (Manual) Basophils # (Manual) PT INR Fibrinogen dRVVT Confirm Interp Factor V Activity POC ABG pH POC ABG pCO2 POC ABG pO2 ABG pO2 ABG HCO3 ABG Base Excess ABG Hemoglobin Oxyhemoglobin Sodium Potassium Chloride Carbon Dioxide BUN 80 H Creatinine 1.4 H Glucose 106 H POC Glucose 106 H Lactic Acid Calcium Ionized Calcium Phosphorus Magnesium Direct Bilirubin AST ALT Alkaline Phosphatase Lactate Dehydrogenase Troponin T C-Reactive Protein Total Protein Albumin Prealbumin Triglycerides Cholesterol LDL Cholesterol Direct HDL Cholesterol 25-OH Vitamin D Total PTH Intact Urine pH Urine WBC (Auto) Urine Creatinine Urine Total Protein Fluid Total Protein 3.0 L Vancomycin Trough Rheumatoid Factor Complement C4 Miscellaneous Test Crossmatch 01/13/17 01/13/17 01/13/17 12:17 15:50 17:30 WBC RBC Hgb Hct MCV MCH MCHC RDW Plt Count Lymph % (Auto) [place] % (Auto) Lymph # [place] # Baso # Seg Neutrophils % Seg Neuts % (Manual) Lymphocytes % (Manual) Monocytes % (Manual) Eosinophils % (Manual) Basophils % (Manual) Nucleated RBC % Seg Neutrophils # Seg Neutrophils # Man Lymphocytes # (Manual) Monocytes # (Manual) Eosinophils # (Manual) Basophils # (Manual) PT 15.4 H INR 1.16 H Fibrinogen dRVVT Confirm Interp Factor V Activity POC ABG pH POC ABG pCO2 POC ABG pO2 ABG pO2 ABG HCO3 ABG Base Excess ABG Hemoglobin Oxyhemoglobin Sodium Potassium Chloride Carbon Dioxide BUN Creatinine Glucose POC Glucose 168 H 110 H Lactic Acid Calcium Ionized Calcium Phosphorus Magnesium Direct Bilirubin AST ALT Alkaline Phosphatase Lactate Dehydrogenase Troponin T C-Reactive Protein Total Protein Albumin Prealbumin Triglycerides Cholesterol LDL Cholesterol Direct HDL Cholesterol 25-OH Vitamin D Total PTH Intact Urine pH Urine WBC (Auto) Urine Creatinine Urine Total Protein Fluid Total Protein Vancomycin Trough Rheumatoid Factor Complement C4 Miscellaneous Test Crossmatch 01/13/17 01/14/17 01/14/17 23:42 05:24 05:30 WBC RBC Hgb Hct MCV MCH MCHC RDW Plt Count Lymph % (Auto) [place] % (Auto) Lymph # [place] # Baso # Seg Neutrophils % Seg Neuts % (Manual) Lymphocytes % (Manual) Monocytes % (Manual) Eosinophils % (Manual) Basophils % (Manual) Nucleated RBC % Seg Neutrophils # Seg Neutrophils # Man Lymphocytes # (Manual) Monocytes # (Manual) Eosinophils # (Manual) Basophils # (Manual) PT INR Fibrinogen dRVVT Confirm Interp Factor V Activity POC ABG pH POC ABG pCO2 POC ABG pO2 ABG pO2 ABG HCO3 ABG Base Excess ABG Hemoglobin Oxyhemoglobin Sodium Potassium Chloride Carbon Dioxide BUN 58 H Creatinine Glucose 114 H POC Glucose 155 H 121 H Lactic Acid Calcium Ionized Calcium Phosphorus Magnesium Direct Bilirubin AST ALT Alkaline Phosphatase Lactate Dehydrogenase Troponin T C-Reactive Protein Total Protein Albumin Prealbumin Triglycerides Cholesterol LDL Cholesterol Direct HDL Cholesterol 25-OH Vitamin D Total PTH Intact Urine pH Urine WBC (Auto) Urine Creatinine Urine Total Protein Fluid Total Protein Vancomycin Trough Rheumatoid Factor Complement C4 Miscellaneous Test Crossmatch 01/14/17 01/14/17 01/15/17 12:48 17:36 00:15 WBC RBC Hgb Hct MCV MCH MCHC RDW Plt Count Lymph % (Auto) [place] % (Auto) Lymph # [place] # Baso # Seg Neutrophils % Seg Neuts % (Manual) Lymphocytes % (Manual) Monocytes % (Manual) Eosinophils % (Manual) Basophils % (Manual) Nucleated RBC % Seg Neutrophils # Seg Neutrophils # Man Lymphocytes # (Manual) Monocytes # (Manual) Eosinophils # (Manual) Basophils # (Manual) PT INR Fibrinogen dRVVT Confirm Interp Factor V Activity POC ABG pH POC ABG pCO2 POC ABG pO2 ABG pO2 ABG HCO3 ABG Base Excess ABG Hemoglobin Oxyhemoglobin Sodium Potassium Chloride Carbon Dioxide BUN Creatinine Glucose POC Glucose 130 H 135 H 132 H Lactic Acid Calcium Ionized Calcium Phosphorus Magnesium Direct Bilirubin AST ALT Alkaline Phosphatase Lactate Dehydrogenase Troponin T C-Reactive Protein Total Protein Albumin Prealbumin Triglycerides Cholesterol LDL Cholesterol Direct HDL Cholesterol 25-OH Vitamin D Total PTH Intact Urine pH Urine WBC (Auto) Urine Creatinine Urine Total Protein Fluid Total Protein Vancomycin Trough Rheumatoid Factor Complement C4 Miscellaneous Test Crossmatch 01/15/17 01/15/17 01/15/17 05:01 11:55 12:45 WBC 16.2 H RBC 3.00 L Hgb 8.1 L Hct 25.4 L MCV MCH 27 L MCHC RDW 17.6 H Plt Count Lymph % (Auto) 11.7 L [place] % (Auto) 7.8 H Lymph # [place] # 1.3 H Baso # Seg Neutrophils % 80.1 H Seg Neuts % (Manual) Lymphocytes % (Manual) Monocytes % (Manual) Eosinophils % (Manual) Basophils % (Manual) Nucleated RBC % Seg Neutrophils # 13.0 H Seg Neutrophils # Man Lymphocytes # (Manual) Monocytes # (Manual) Eosinophils # (Manual) Basophils # (Manual) PT INR Fibrinogen dRVVT Confirm Interp Factor V Activity POC ABG pH POC ABG pCO2 POC ABG pO2 ABG pO2 ABG HCO3 ABG Base Excess ABG Hemoglobin Oxyhemoglobin Sodium Potassium Chloride Carbon Dioxide BUN Creatinine Glucose POC Glucose 126 H 125 H Lactic Acid Calcium Ionized Calcium Phosphorus Magnesium Direct Bilirubin AST ALT Alkaline Phosphatase Lactate Dehydrogenase Troponin T C-Reactive Protein Total Protein Albumin Prealbumin Triglycerides Cholesterol LDL Cholesterol Direct HDL Cholesterol 25-OH Vitamin D Total PTH Intact Urine pH Urine WBC (Auto) Urine Creatinine Urine Total Protein Fluid Total Protein Vancomycin Trough Rheumatoid Factor Complement C4 Miscellaneous Test Crossmatch 01/15/17 01/15/17 01/15/17 12:45 17:31 23:39 WBC RBC Hgb Hct MCV MCH MCHC RDW Plt Count Lymph % (Auto) [place] % (Auto) Lymph # [place] # Baso # Seg Neutrophils % Seg Neuts % (Manual) Lymphocytes % (Manual) Monocytes % (Manual) Eosinophils % (Manual) Basophils % (Manual) Nucleated RBC % Seg Neutrophils # Seg Neutrophils # Man Lymphocytes # (Manual) Monocytes # (Manual) Eosinophils # (Manual) Basophils # (Manual) PT INR Fibrinogen dRVVT Confirm Interp Factor V Activity POC ABG pH POC ABG pCO2 POC ABG pO2 ABG pO2 ABG HCO3 ABG Base Excess ABG Hemoglobin Oxyhemoglobin Sodium 136 L Potassium Chloride Carbon Dioxide BUN 87 H Creatinine 1.7 H Glucose 108 H POC Glucose 129 H 112 H Lactic Acid Calcium Ionized Calcium Phosphorus Magnesium Direct Bilirubin AST ALT Alkaline Phosphatase Lactate Dehydrogenase Troponin T C-Reactive Protein Total Protein Albumin Prealbumin Triglycerides Cholesterol LDL Cholesterol Direct HDL Cholesterol 25-OH Vitamin D Total PTH Intact Urine pH Urine WBC (Auto) Urine Creatinine Urine Total Protein Fluid Total Protein Vancomycin Trough Rheumatoid Factor Complement C4 Miscellaneous Test Crossmatch 01/16/17 01/16/17 01/16/17 05:23 11:42 12:32 WBC RBC Hgb Hct MCV MCH MCHC RDW Plt Count Lymph % (Auto) [place] % (Auto) Lymph # [place] # Baso # Seg Neutrophils % Seg Neuts % (Manual) Lymphocytes % (Manual) Monocytes % (Manual) Eosinophils % (Manual) Basophils % (Manual) Nucleated RBC % Seg Neutrophils # Seg Neutrophils # Man Lymphocytes # (Manual) Monocytes # (Manual) Eosinophils # (Manual) Basophils # (Manual) PT INR Fibrinogen dRVVT Confirm Interp Factor V Activity POC ABG pH 7.499 H POC ABG pCO2 30.9 L POC ABG pO2 51 L ABG pO2 ABG HCO3 ABG Base Excess ABG Hemoglobin Oxyhemoglobin Sodium Potassium Chloride Carbon Dioxide BUN Creatinine Glucose POC Glucose 118 H 133 H Lactic Acid Calcium Ionized Calcium Phosphorus Magnesium Direct Bilirubin AST ALT Alkaline Phosphatase Lactate Dehydrogenase Troponin T C-Reactive Protein Total Protein Albumin Prealbumin Triglycerides Cholesterol LDL Cholesterol Direct HDL Cholesterol 25-OH Vitamin D Total PTH Intact Urine pH Urine WBC (Auto) Urine Creatinine Urine Total Protein Fluid Total Protein Vancomycin Trough Rheumatoid Factor Complement C4 Miscellaneous Test Crossmatch 01/16/17 01/16/17 01/16/17 17:52 23:57 Unknown WBC RBC Hgb Hct MCV MCH MCHC RDW Plt Count Lymph % (Auto) [place] % (Auto) Lymph # [place] # Baso # Seg Neutrophils % Seg Neuts % (Manual) Lymphocytes % (Manual) Monocytes % (Manual) Eosinophils % (Manual) Basophils % (Manual) Nucleated RBC % Seg Neutrophils # Seg Neutrophils # Man Lymphocytes # (Manual) Monocytes # (Manual) Eosinophils # (Manual) Basophils # (Manual) PT INR Fibrinogen dRVVT Confirm Interp Factor V Activity POC ABG pH POC ABG pCO2 POC ABG pO2 ABG pO2 ABG HCO3 ABG Base Excess ABG Hemoglobin Oxyhemoglobin Sodium 135 L Potassium Chloride Carbon Dioxide BUN 101 H Creatinine 1.8 H Glucose 117 H POC Glucose 130 H 143 H Lactic Acid Calcium Ionized Calcium Phosphorus 5.80 H Magnesium Direct Bilirubin AST ALT Alkaline Phosphatase Lactate Dehydrogenase Troponin T C-Reactive Protein Total Protein Albumin Prealbumin Triglycerides Cholesterol LDL Cholesterol Direct HDL Cholesterol 25-OH Vitamin D Total PTH Intact Urine pH Urine WBC (Auto) Urine Creatinine Urine Total Protein Fluid Total Protein Vancomycin Trough Rheumatoid Factor Complement C4 Miscellaneous Test Crossmatch 01/17/17 01/17/17 01/17/17 05:30 05:46 11:49 WBC RBC Hgb Hct MCV MCH MCHC RDW Plt Count Lymph % (Auto) [place] % (Auto) Lymph # [place] # Baso # Seg Neutrophils % Seg Neuts % (Manual) Lymphocytes % (Manual) Monocytes % (Manual) Eosinophils % (Manual) Basophils % (Manual) Nucleated RBC % Seg Neutrophils # Seg Neutrophils # Man Lymphocytes # (Manual) Monocytes # (Manual) Eosinophils # (Manual) Basophils # (Manual) PT INR Fibrinogen dRVVT Confirm Interp Factor V Activity POC ABG pH POC ABG pCO2 POC ABG pO2 ABG pO2 ABG HCO3 ABG Base Excess ABG Hemoglobin Oxyhemoglobin Sodium 134 L Potassium Chloride 95.8 L Carbon Dioxide BUN 66 H Creatinine 1.3 H Glucose 138 H POC Glucose 147 H 124 H Lactic Acid Calcium Ionized Calcium Phosphorus Magnesium Direct Bilirubin AST ALT Alkaline Phosphatase 254 H Lactate Dehydrogenase Troponin T C-Reactive Protein Total Protein Albumin 1.3 L Prealbumin Triglycerides Cholesterol LDL Cholesterol Direct HDL Cholesterol 25-OH Vitamin D Total PTH Intact Urine pH Urine WBC (Auto) Urine Creatinine Urine Total Protein Fluid Total Protein Vancomycin Trough Rheumatoid Factor Complement C4 Miscellaneous Test Crossmatch 01/17/17 01/17/17 01/18/17 17:30 23:41 05:15 WBC RBC Hgb Hct MCV MCH MCHC RDW Plt Count Lymph % (Auto) [place] % (Auto) Lymph # [place] # Baso # Seg Neutrophils % Seg Neuts % (Manual) Lymphocytes % (Manual) Monocytes % (Manual) Eosinophils % (Manual) Basophils % (Manual) Nucleated RBC % Seg Neutrophils # Seg Neutrophils # Man Lymphocytes # (Manual) Monocytes # (Manual) Eosinophils # (Manual) Basophils # (Manual) PT INR Fibrinogen dRVVT Confirm Interp Factor V Activity POC ABG pH POC ABG pCO2 POC ABG pO2 ABG pO2 ABG HCO3 ABG Base Excess ABG Hemoglobin Oxyhemoglobin Sodium Potassium Chloride Carbon Dioxide BUN 89 H Creatinine 1.7 H Glucose 118 H POC Glucose 137 H 119 H Lactic Acid Calcium Ionized Calcium Phosphorus Magnesium Direct Bilirubin AST ALT Alkaline Phosphatase Lactate Dehydrogenase Troponin T C-Reactive Protein Total Protein Albumin Prealbumin Triglycerides Cholesterol LDL Cholesterol Direct HDL Cholesterol 25-OH Vitamin D Total PTH Intact Urine pH Urine WBC (Auto) Urine Creatinine Urine Total Protein Fluid Total Protein Vancomycin Trough Rheumatoid Factor Complement C4 Miscellaneous Test Crossmatch 01/18/17 01/18/17 01/18/17 05:19 12:16 18:11 WBC RBC Hgb Hct MCV MCH MCHC RDW Plt Count Lymph % (Auto) [place] % (Auto) Lymph # [place] # Baso # Seg Neutrophils % Seg Neuts % (Manual) Lymphocytes % (Manual) Monocytes % (Manual) Eosinophils % (Manual) Basophils % (Manual) Nucleated RBC % Seg Neutrophils # Seg Neutrophils # Man Lymphocytes # (Manual) Monocytes # (Manual) Eosinophils # (Manual) Basophils # (Manual) PT INR Fibrinogen dRVVT Confirm Interp Factor V Activity POC ABG pH POC ABG pCO2 POC ABG pO2 ABG pO2 ABG HCO3 ABG Base Excess ABG Hemoglobin Oxyhemoglobin Sodium Potassium Chloride Carbon Dioxide BUN Creatinine Glucose POC Glucose 134 H 188 H 113 H Lactic Acid Calcium Ionized Calcium Phosphorus Magnesium Direct Bilirubin AST ALT Alkaline Phosphatase Lactate Dehydrogenase Troponin T C-Reactive Protein Total Protein Albumin Prealbumin Triglycerides Cholesterol LDL Cholesterol Direct HDL Cholesterol 25-OH Vitamin D Total PTH Intact Urine pH Urine WBC (Auto) Urine Creatinine Urine Total Protein Fluid Total Protein Vancomycin Trough Rheumatoid Factor Complement C4 Miscellaneous Test Crossmatch 01/19/17 01/19/17 01/19/17 00:00 05:30 05:36 WBC RBC Hgb Hct MCV MCH MCHC RDW Plt Count Lymph % (Auto) [place] % (Auto) Lymph # [place] # Baso # Seg Neutrophils % Seg Neuts % (Manual) Lymphocytes % (Manual) Monocytes % (Manual) Eosinophils % (Manual) Basophils % (Manual) Nucleated RBC % Seg Neutrophils # Seg Neutrophils # Man Lymphocytes # (Manual) Monocytes # (Manual) Eosinophils # (Manual) Basophils # (Manual) PT INR Fibrinogen dRVVT Confirm Interp Factor V Activity POC ABG pH POC ABG pCO2 POC ABG pO2 ABG pO2 ABG HCO3 ABG Base Excess ABG Hemoglobin Oxyhemoglobin Sodium Potassium Chloride Carbon Dioxide BUN 70 H Creatinine 1.5 H Glucose 121 H POC Glucose 137 H 155 H Lactic Acid Calcium Ionized Calcium Phosphorus 2.10 L D Magnesium Direct Bilirubin AST ALT Alkaline Phosphatase Lactate Dehydrogenase Troponin T C-Reactive Protein Total Protein Albumin Prealbumin Triglycerides Cholesterol LDL Cholesterol Direct HDL Cholesterol 25-OH Vitamin D Total PTH Intact Urine pH Urine WBC (Auto) Urine Creatinine Urine Total Protein Fluid Total Protein Vancomycin Trough Rheumatoid Factor Complement C4 Miscellaneous Test Crossmatch 01/19/17 01/19/17 01/19/17 11:59 15:32 17:57 WBC RBC Hgb Hct MCV MCH MCHC RDW Plt Count Lymph % (Auto) [place] % (Auto) Lymph # [place] # Baso # Seg Neutrophils % Seg Neuts % (Manual) Lymphocytes % (Manual) Monocytes % (Manual) Eosinophils % (Manual) Basophils % (Manual) Nucleated RBC % Seg Neutrophils # Seg Neutrophils # Man Lymphocytes # (Manual) Monocytes # (Manual) Eosinophils # (Manual) Basophils # (Manual) PT INR Fibrinogen dRVVT Confirm Interp Factor V Activity POC ABG pH POC ABG pCO2 33.1 L POC ABG pO2 76 L ABG pO2 ABG HCO3 ABG Base Excess ABG Hemoglobin Oxyhemoglobin Sodium Potassium Chloride Carbon Dioxide BUN Creatinine Glucose POC Glucose 156 H 129 H Lactic Acid Calcium Ionized Calcium Phosphorus Magnesium Direct Bilirubin AST ALT Alkaline Phosphatase Lactate Dehydrogenase Troponin T C-Reactive Protein Total Protein Albumin Prealbumin Triglycerides Cholesterol LDL Cholesterol Direct HDL Cholesterol 25-OH Vitamin D Total PTH Intact Urine pH Urine WBC (Auto) Urine Creatinine Urine Total Protein Fluid Total Protein Vancomycin Trough Rheumatoid Factor Complement C4 Miscellaneous Test Crossmatch 01/19/17 01/20/17 01/20/17 23:49 04:00 05:21 WBC RBC Hgb Hct MCV MCH MCHC RDW Plt Count Lymph % (Auto) [place] % (Auto) Lymph # [place] # Baso # Seg Neutrophils % Seg Neuts % (Manual) Lymphocytes % (Manual) Monocytes % (Manual) Eosinophils % (Manual) Basophils % (Manual) Nucleated RBC % Seg Neutrophils # Seg Neutrophils # Man Lymphocytes # (Manual) Monocytes # (Manual) Eosinophils # (Manual) Basophils # (Manual) PT INR Fibrinogen dRVVT Confirm Interp Factor V Activity POC ABG pH POC ABG pCO2 POC ABG pO2 ABG pO2 ABG HCO3 ABG Base Excess ABG Hemoglobin Oxyhemoglobin Sodium Potassium Chloride Carbon Dioxide BUN 96 H Creatinine 1.9 H Glucose 106 H POC Glucose 125 H 130 H Lactic Acid Calcium Ionized Calcium Phosphorus 2.40 L Magnesium Direct Bilirubin AST ALT Alkaline Phosphatase Lactate Dehydrogenase Troponin T C-Reactive Protein Total Protein Albumin Prealbumin Triglycerides Cholesterol LDL Cholesterol Direct HDL Cholesterol 25-OH Vitamin D Total PTH Intact Urine pH Urine WBC (Auto) Urine Creatinine Urine Total Protein Fluid Total Protein Vancomycin Trough Rheumatoid Factor Complement C4 Miscellaneous Test Crossmatch 12/03/0801/20/17 01/20/17 11:58 12:17 17:26 WBC RBC Hgb Hct MCV MCH MCHC RDW Plt Count Lymph % (Auto) [place] % (Auto) Lymph # [place] # Baso # Seg Neutrophils % Seg Neuts % (Manual) Lymphocytes % (Manual) Monocytes % (Manual) Eosinophils % (Manual) Basophils % (Manual) Nucleated RBC % Seg Neutrophils # Seg Neutrophils # Man Lymphocytes # (Manual) Monocytes # (Manual) Eosinophils # (Manual) Basophils # (Manual) PT INR Fibrinogen dRVVT Confirm Interp Factor V Activity POC ABG pH POC ABG pCO2 POC ABG pO2 70 L ABG pO2 ABG HCO3 ABG Base Excess ABG Hemoglobin Oxyhemoglobin Sodium Potassium Chloride Carbon Dioxide BUN Creatinine Glucose POC Glucose 118 H 154 H Lactic Acid Calcium Ionized Calcium Phosphorus Magnesium Direct Bilirubin AST ALT Alkaline Phosphatase Lactate Dehydrogenase Troponin T C-Reactive Protein Total Protein Albumin Prealbumin Triglycerides Cholesterol LDL Cholesterol Direct HDL Cholesterol 25-OH Vitamin D Total PTH Intact Urine pH Urine WBC (Auto) Urine Creatinine Urine Total Protein Fluid Total Protein Vancomycin Trough Rheumatoid Factor Complement C4 Miscellaneous Test Crossmatch 01/21/17 01/21/17 01/21/17 04:00 04:56 11:46 WBC RBC Hgb Hct MCV MCH MCHC RDW Plt Count Lymph % (Auto) [place] % (Auto) Lymph # [place] # Baso # Seg Neutrophils % Seg Neuts % (Manual) Lymphocytes % (Manual) Monocytes % (Manual) Eosinophils % (Manual) Basophils % (Manual) Nucleated RBC % Seg Neutrophils # Seg Neutrophils # Man Lymphocytes # (Manual) Monocytes # (Manual) Eosinophils # (Manual) Basophils # (Manual) PT INR Fibrinogen dRVVT Confirm Interp Factor V Activity POC ABG pH POC ABG pCO2 POC ABG pO2 ABG pO2 ABG HCO3 ABG Base Excess ABG Hemoglobin Oxyhemoglobin Sodium Potassium 3.5 L Chloride 97.4 L Carbon Dioxide BUN 66 H Creatinine 1.4 H Glucose POC Glucose 116 H 106 H Lactic Acid Calcium Ionized Calcium Phosphorus 2.10 L Magnesium Direct Bilirubin AST ALT Alkaline Phosphatase Lactate Dehydrogenase Troponin T C-Reactive Protein Total Protein Albumin Prealbumin Triglycerides Cholesterol LDL Cholesterol Direct HDL Cholesterol 25-OH Vitamin D Total PTH Intact Urine pH Urine WBC (Auto) Urine Creatinine Urine Total Protein Fluid Total Protein Vancomycin Trough Rheumatoid Factor Complement C4 Miscellaneous Test Crossmatch 01/21/17 01/21/17 01/22/17 17:25 23:49 05:35 WBC RBC Hgb Hct MCV MCH MCHC RDW Plt Count Lymph % (Auto) [place] % (Auto) Lymph # [place] # Baso # Seg Neutrophils % Seg Neuts % (Manual) Lymphocytes % (Manual) Monocytes % (Manual) Eosinophils % (Manual) Basophils % (Manual) Nucleated RBC % Seg Neutrophils # Seg Neutrophils # Man Lymphocytes # (Manual) Monocytes # (Manual) Eosinophils # (Manual) Basophils # (Manual) PT INR Fibrinogen dRVVT Confirm Interp Factor V Activity POC ABG pH POC ABG pCO2 POC ABG pO2 ABG pO2 ABG HCO3 ABG Base Excess ABG Hemoglobin Oxyhemoglobin Sodium Potassium Chloride Carbon Dioxide BUN Creatinine Glucose POC Glucose 106 H 133 H 107 H Lactic Acid Calcium Ionized Calcium Phosphorus Magnesium Direct Bilirubin AST ALT Alkaline Phosphatase Lactate Dehydrogenase Troponin T C-Reactive Protein Total Protein Albumin Prealbumin Triglycerides Cholesterol LDL Cholesterol Direct HDL Cholesterol 25-OH Vitamin D Total PTH Intact Urine pH Urine WBC (Auto) Urine Creatinine Urine Total Protein Fluid Total Protein Vancomycin Trough Rheumatoid Factor Complement C4 Miscellaneous Test Crossmatch 01/22/17 01/22/17 01/22/17 07:20 07:20 11:31 WBC RBC 2.75 L Hgb 7.5 L Hct 22.7 L MCV MCH 27 L MCHC RDW 17.5 H Plt Count Lymph % (Auto) [place] % (Auto) Lymph # [place] # Baso # Seg Neutrophils % Seg Neuts % (Manual) Lymphocytes % (Manual) Monocytes % (Manual) Eosinophils % (Manual) Basophils % (Manual) Nucleated RBC % Seg Neutrophils # Seg Neutrophils # Man Lymphocytes # (Manual) Monocytes # (Manual) Eosinophils # (Manual) Basophils # (Manual) PT INR Fibrinogen dRVVT Confirm Interp Factor V Activity POC ABG pH POC ABG pCO2 POC ABG pO2 ABG pO2 ABG HCO3 ABG Base Excess ABG Hemoglobin Oxyhemoglobin Sodium Potassium 3.3 L Chloride Carbon Dioxide BUN 42 H Creatinine Glucose 105 H POC Glucose 124 H Lactic Acid Calcium Ionized Calcium Phosphorus 1.70 L Magnesium Direct Bilirubin AST ALT Alkaline Phosphatase Lactate Dehydrogenase Troponin T C-Reactive Protein Total Protein Albumin Prealbumin Triglycerides Cholesterol LDL Cholesterol Direct HDL Cholesterol 25-OH Vitamin D Total PTH Intact Urine pH Urine WBC (Auto) Urine Creatinine Urine Total Protein Fluid Total Protein Vancomycin Trough Rheumatoid Factor Complement C4 Miscellaneous Test Crossmatch 01/22/17 01/22/1717 17:16 23:35 05:35 WBC RBC Hgb Hct MCV MCH MCHC RDW Plt Count Lymph % (Auto) [place] % (Auto) Lymph # [place] # Baso # Seg Neutrophils % Seg Neuts % (Manual) Lymphocytes % (Manual) Monocytes % (Manual) Eosinophils % (Manual) Basophils % (Manual) Nucleated RBC % Seg Neutrophils # Seg Neutrophils # Man Lymphocytes # (Manual) Monocytes # (Manual) Eosinophils # (Manual) Basophils # (Manual) PT INR Fibrinogen dRVVT Confirm Interp Factor V Activity POC ABG pH POC ABG pCO2 POC ABG pO2 ABG pO2 ABG HCO3 ABG Base Excess ABG Hemoglobin Oxyhemoglobin Sodium Potassium Chloride Carbon Dioxide BUN Creatinine Glucose POC Glucose 135 H 120 H 111 H Lactic Acid Calcium Ionized Calcium Phosphorus Magnesium Direct Bilirubin AST ALT Alkaline Phosphatase Lactate Dehydrogenase Troponin T C-Reactive Protein Total Protein Albumin Prealbumin Triglycerides Cholesterol LDL Cholesterol Direct HDL Cholesterol 25-OH Vitamin D Total PTH Intact Urine pH Urine WBC (Auto) Urine Creatinine Urine Total Protein Fluid Total Protein Vancomycin Trough Rheumatoid Factor Complement C4 Miscellaneous Test Crossmatch 01/23/17 01/23/17 01/23/17 06:10 17:27 23:44 WBC RBC Hgb Hct MCV MCH MCHC RDW Plt Count Lymph % (Auto) [place] % (Auto) Lymph # [place] # Baso # Seg Neutrophils % Seg Neuts % (Manual) Lymphocytes % (Manual) Monocytes % (Manual) Eosinophils % (Manual) Basophils % (Manual) Nucleated RBC % Seg Neutrophils # Seg Neutrophils # Man Lymphocytes # (Manual) Monocytes # (Manual) Eosinophils # (Manual) Basophils # (Manual) PT INR Fibrinogen dRVVT Confirm Interp Factor V Activity POC ABG pH POC ABG pCO2 POC ABG pO2 ABG pO2 ABG HCO3 ABG Base Excess ABG Hemoglobin Oxyhemoglobin Sodium Potassium 3.3 L Chloride Carbon Dioxide BUN 66 H Creatinine 1.3 H Glucose 109 H POC Glucose 120 H 115 H Lactic Acid Calcium Ionized Calcium Phosphorus 2.20 L D Magnesium Direct Bilirubin AST ALT Alkaline Phosphatase Lactate Dehydrogenase Troponin T C-Reactive Protein Total Protein Albumin Prealbumin Triglycerides Cholesterol LDL Cholesterol Direct HDL Cholesterol 25-OH Vitamin D Total PTH Intact Urine pH Urine WBC (Auto) Urine Creatinine Urine Total Protein Fluid Total Protein Vancomycin Trough Rheumatoid Factor Complement C4 Miscellaneous Test Crossmatch 01/24/17 01/24/17 01/24/17 05:19 05:50 12:19 WBC RBC Hgb Hct MCV MCH MCHC RDW Plt Count Lymph % (Auto) [place] % (Auto) Lymph # [place] # Baso # Seg Neutrophils % Seg Neuts % (Manual) Lymphocytes % (Manual) Monocytes % (Manual) Eosinophils % (Manual) Basophils % (Manual) Nucleated RBC % Seg Neutrophils # Seg Neutrophils # Man Lymphocytes # (Manual) Monocytes # (Manual) Eosinophils # (Manual) Basophils # (Manual) PT INR Fibrinogen dRVVT Confirm Interp Factor V Activity POC ABG pH POC ABG pCO2 POC ABG pO2 ABG pO2 ABG HCO3 ABG Base Excess ABG Hemoglobin Oxyhemoglobin Sodium Potassium Chloride Carbon Dioxide BUN 47 H Creatinine Glucose 117 H POC Glucose 126 H 119 H Lactic Acid Calcium Ionized Calcium Phosphorus 2.30 L Magnesium 1.60 L Direct Bilirubin AST ALT Alkaline Phosphatase Lactate Dehydrogenase Troponin T C-Reactive Protein Total Protein Albumin Prealbumin Triglycerides Cholesterol LDL Cholesterol Direct HDL Cholesterol 25-OH Vitamin D Total PTH Intact Urine pH Urine WBC (Auto) Urine Creatinine Urine Total Protein Fluid Total Protein Vancomycin Trough Rheumatoid Factor Complement C4 Miscellaneous Test Crossmatch 01/24/17 01/25/17 01/25/17 17:08 00:37 04:00 WBC RBC Hgb Hct MCV MCH MCHC RDW Plt Count Lymph % (Auto) [place] % (Auto) Lymph # [place] # Baso # Seg Neutrophils % Seg Neuts % (Manual) Lymphocytes % (Manual) Monocytes % (Manual) Eosinophils % (Manual) Basophils % (Manual) Nucleated RBC % Seg Neutrophils # Seg Neutrophils # Man Lymphocytes # (Manual) Monocytes # (Manual) Eosinophils # (Manual) Basophils # (Manual) PT INR Fibrinogen dRVVT Confirm Interp Factor V Activity POC ABG pH POC ABG pCO2 POC ABG pO2 ABG pO2 ABG HCO3 ABG Base Excess ABG Hemoglobin Oxyhemoglobin Sodium Potassium Chloride Carbon Dioxide BUN 72 H Creatinine 1.3 H Glucose POC Glucose 127 H 110 H Lactic Acid Calcium Ionized Calcium Phosphorus Magnesium Direct Bilirubin AST ALT Alkaline Phosphatase Lactate Dehydrogenase Troponin T C-Reactive Protein Total Protein Albumin Prealbumin Triglycerides Cholesterol LDL Cholesterol Direct HDL Cholesterol 25-OH Vitamin D Total PTH Intact Urine pH Urine WBC (Auto) Urine Creatinine Urine Total Protein Fluid Total Protein Vancomycin Trough Rheumatoid Factor Complement C4 Miscellaneous Test Crossmatch 01/25/17 01/25/17 01/25/17 04:00 11:15 13:05 WBC RBC 2.49 L Hgb 6.7 L Hct 20.9 L MCV MCH 27 L MCHC RDW 18.8 H Plt Count Lymph % (Auto) [place] % (Auto) 10.1 H Lymph # [place] # 1.0 H Baso # Seg Neutrophils % Seg Neuts % (Manual) Lymphocytes % (Manual) Monocytes % (Manual) Eosinophils % (Manual) Basophils % (Manual) Nucleated RBC % Seg Neutrophils # Seg Neutrophils # Man Lymphocytes # (Manual) Monocytes # (Manual) Eosinophils # (Manual) Basophils # (Manual) PT INR Fibrinogen dRVVT Confirm Interp Factor V Activity POC ABG pH POC ABG pCO2 POC ABG pO2 ABG pO2 ABG HCO3 ABG Base Excess ABG Hemoglobin Oxyhemoglobin Sodium Potassium Chloride Carbon Dioxide BUN Creatinine Glucose POC Glucose 128 H Lactic Acid Calcium Ionized Calcium Phosphorus Magnesium Direct Bilirubin AST ALT Alkaline Phosphatase Lactate Dehydrogenase Troponin T C-Reactive Protein Total Protein Albumin Prealbumin Triglycerides Cholesterol LDL Cholesterol Direct HDL Cholesterol 25-OH Vitamin D Total PTH Intact Urine pH Urine WBC (Auto) Urine Creatinine Urine Total Protein Fluid Total Protein Vancomycin Trough Rheumatoid Factor Complement C4 Miscellaneous Test Crossmatch See Detail 01/25/17 01/25/17 01/26/17 18:02 23:07 01:20 WBC RBC Hgb Hct MCV MCH MCHC RDW Plt Count Lymph % (Auto) [place] % (Auto) Lymph # [place] # Baso # Seg Neutrophils % Seg Neuts % (Manual) Lymphocytes % (Manual) Monocytes % (Manual) Eosinophils % (Manual) Basophils % (Manual) Nucleated RBC % Seg Neutrophils # Seg Neutrophils # Man Lymphocytes # (Manual) Monocytes # (Manual) Eosinophils # (Manual) Basophils # (Manual) PT INR Fibrinogen dRVVT Confirm Interp Factor V Activity POC ABG pH POC ABG pCO2 POC ABG pO2 ABG pO2 ABG HCO3 ABG Base Excess ABG Hemoglobin Oxyhemoglobin Sodium Potassium Chloride Carbon Dioxide BUN Creatinine Glucose POC Glucose 120 H 123 H 112 H Lactic Acid Calcium Ionized Calcium Phosphorus Magnesium Direct Bilirubin AST ALT Alkaline Phosphatase Lactate Dehydrogenase Troponin T C-Reactive Protein Total Protein Albumin Prealbumin Triglycerides Cholesterol LDL Cholesterol Direct HDL Cholesterol 25-OH Vitamin D Total PTH Intact Urine pH Urine WBC (Auto) Urine Creatinine Urine Total Protein Fluid Total Protein Vancomycin Trough Rheumatoid Factor Complement C4 Miscellaneous Test Crossmatch 01/26/17 01/26/17 01/26/17 04:20 04:20 11:23 WBC 13.1 H RBC 3.28 L Hgb 9.0 L Hct 26.9 L D MCV MCH 27 L MCHC RDW 17.2 H Plt Count Lymph % (Auto) [place] % (Auto) 9.0 H Lymph # [place] # 1.2 H Baso # Seg Neutrophils % 73.1 H Seg Neuts % (Manual) Lymphocytes % (Manual) Monocytes % (Manual) Eosinophils % (Manual) Basophils % (Manual) Nucleated RBC % Seg Neutrophils # 9.6 H Seg Neutrophils # Man Lymphocytes # (Manual) Monocytes # (Manual) Eosinophils # (Manual) Basophils # (Manual) PT INR Fibrinogen dRVVT Confirm Interp Factor V Activity POC ABG pH POC ABG pCO2 POC ABG pO2 ABG pO2 ABG HCO3 ABG Base Excess ABG Hemoglobin Oxyhemoglobin Sodium Potassium Chloride Carbon Dioxide BUN 51 H Creatinine Glucose 117 H POC Glucose 125 H Lactic Acid Calcium Ionized Calcium Phosphorus Magnesium Direct Bilirubin AST ALT Alkaline Phosphatase Lactate Dehydrogenase Troponin T C-Reactive Protein Total Protein Albumin Prealbumin Triglycerides Cholesterol LDL Cholesterol Direct HDL Cholesterol 25-OH Vitamin D Total PTH Intact Urine pH Urine WBC (Auto) Urine Creatinine Urine Total Protein Fluid Total Protein Vancomycin Trough Rheumatoid Factor Complement C4 Miscellaneous Test Crossmatch 01/26/17 01/27/17 01/27/17 17:11 00:30 04:00 WBC RBC Hgb Hct MCV MCH MCHC RDW Plt Count Lymph % (Auto) [place] % (Auto) Lymph # [place] # Baso # Seg Neutrophils % Seg Neuts % (Manual) Lymphocytes % (Manual) Monocytes % (Manual) Eosinophils % (Manual) Basophils % (Manual) Nucleated RBC % Seg Neutrophils # Seg Neutrophils # Man Lymphocytes # (Manual) Monocytes # (Manual) Eosinophils # (Manual) Basophils # (Manual) PT INR Fibrinogen dRVVT Confirm Interp Factor V Activity POC ABG pH POC ABG pCO2 POC ABG pO2 ABG pO2 ABG HCO3 ABG Base Excess ABG Hemoglobin Oxyhemoglobin Sodium Potassium Chloride 97.7 L Carbon Dioxide 21 L BUN 79 H Creatinine 1.7 H D Glucose 112 H POC Glucose 133 H 135 H Lactic Acid Calcium Ionized Calcium Phosphorus 5.00 H D Magnesium Direct Bilirubin AST ALT Alkaline Phosphatase Lactate Dehydrogenase Troponin T C-Reactive Protein Total Protein Albumin Prealbumin Triglycerides Cholesterol LDL Cholesterol Direct HDL Cholesterol 25-OH Vitamin D Total PTH Intact Urine pH Urine WBC (Auto) Urine Creatinine Urine Total Protein Fluid Total Protein Vancomycin Trough Rheumatoid Factor Complement C4 Miscellaneous Test Crossmatch 01/27/17 01/27/17 01/27/17 05:12 12:18 17:25 WBC RBC Hgb Hct MCV MCH MCHC RDW Plt Count Lymph % (Auto) [place] % (Auto) Lymph # [place] # Baso # Seg Neutrophils % Seg Neuts % (Manual) Lymphocytes % (Manual) Monocytes % (Manual) Eosinophils % (Manual) Basophils % (Manual) Nucleated RBC % Seg Neutrophils # Seg Neutrophils # Man Lymphocytes # (Manual) Monocytes # (Manual) Eosinophils # (Manual) Basophils # (Manual) PT INR Fibrinogen dRVVT Confirm Interp Factor V Activity POC ABG pH POC ABG pCO2 POC ABG pO2 ABG pO2 ABG HCO3 ABG Base Excess ABG Hemoglobin Oxyhemoglobin Sodium Potassium Chloride Carbon Dioxide BUN Creatinine Glucose POC Glucose 116 H 153 H 152 H Lactic Acid Calcium Ionized Calcium Phosphorus Magnesium Direct Bilirubin AST ALT Alkaline Phosphatase Lactate Dehydrogenase Troponin T C-Reactive Protein Total Protein Albumin Prealbumin Triglycerides Cholesterol LDL Cholesterol Direct HDL Cholesterol 25-OH Vitamin D Total PTH Intact Urine pH Urine WBC (Auto) Urine Creatinine Urine Total Protein Fluid Total Protein Vancomycin Trough Rheumatoid Factor Complement C4 Miscellaneous Test Crossmatch 01/27/17 01/28/17 01/28/17 23:42 04:00 04:00 WBC 14.4 H RBC 2.82 L Hgb 7.4 L Hct 23.5 L MCV MCH 26 L MCHC RDW 17.6 H Plt Count Lymph % (Auto) 10.2 L [place] % (Auto) 11.0 H Lymph # [place] # 1.6 H Baso # Seg Neutrophils % 78.0 H Seg Neuts % (Manual) Lymphocytes % (Manual) Monocytes % (Manual) Eosinophils % (Manual) Basophils % (Manual) Nucleated RBC % Seg Neutrophils # 11.3 H Seg Neutrophils # Man Lymphocytes # (Manual) Monocytes # (Manual) Eosinophils # (Manual) Basophils # (Manual) PT INR Fibrinogen dRVVT Confirm Interp Factor V Activity POC ABG pH POC ABG pCO2 POC ABG pO2 ABG pO2 ABG HCO3 ABG Base Excess ABG Hemoglobin Oxyhemoglobin Sodium Potassium Chloride Carbon Dioxide BUN 55 H Creatinine 1.3 H Glucose 114 H POC Glucose 121 H Lactic Acid Calcium Ionized Calcium Phosphorus Magnesium Direct Bilirubin AST ALT Alkaline Phosphatase Lactate Dehydrogenase Troponin T C-Reactive Protein Total Protein Albumin 1.4 L Prealbumin Triglycerides Cholesterol LDL Cholesterol Direct HDL Cholesterol 25-OH Vitamin D Total PTH Intact Urine pH Urine WBC (Auto) Urine Creatinine Urine Total Protein Fluid Total Protein Vancomycin Trough Rheumatoid Factor Complement C4 Miscellaneous Test Crossmatch 01/28/17 01/28/17 01/29/17 04:59 12:30 00:02 WBC RBC Hgb Hct MCV MCH MCHC RDW Plt Count Lymph % (Auto) [place] % (Auto) Lymph # [place] # Baso # Seg Neutrophils % Seg Neuts % (Manual) Lymphocytes % (Manual) Monocytes % (Manual) Eosinophils % (Manual) Basophils % (Manual) Nucleated RBC % Seg Neutrophils # Seg Neutrophils # Man Lymphocytes # (Manual) Monocytes # (Manual) Eosinophils # (Manual) Basophils # (Manual) PT INR Fibrinogen dRVVT Confirm Interp Factor V Activity POC ABG pH POC ABG pCO2 POC ABG pO2 ABG pO2 ABG HCO3 ABG Base Excess ABG Hemoglobin Oxyhemoglobin Sodium Potassium Chloride Carbon Dioxide BUN Creatinine Glucose POC Glucose 126 H 119 H 138 H Lactic Acid Calcium Ionized Calcium Phosphorus Magnesium Direct Bilirubin AST ALT Alkaline Phosphatase Lactate Dehydrogenase Troponin T C-Reactive Protein Total Protein Albumin Prealbumin Triglycerides Cholesterol LDL Cholesterol Direct HDL Cholesterol 25-OH Vitamin D Total PTH Intact Urine pH Urine WBC (Auto) Urine Creatinine Urine Total Protein Fluid Total Protein Vancomycin Trough Rheumatoid Factor Complement C4 Miscellaneous Test Crossmatch 01/29/17 01/29/17 01/29/17 04:58 06:15 11:35 WBC RBC Hgb Hct MCV MCH MCHC RDW Plt Count Lymph % (Auto) [place] % (Auto) Lymph # [place] # Baso # Seg Neutrophils % Seg Neuts % (Manual) Lymphocytes % (Manual) Monocytes % (Manual) Eosinophils % (Manual) Basophils % (Manual) Nucleated RBC % Seg Neutrophils # Seg Neutrophils # Man Lymphocytes # (Manual) Monocytes # (Manual) Eosinophils # (Manual) Basophils # (Manual) PT INR Fibrinogen dRVVT Confirm Interp Factor V Activity POC ABG pH POC ABG pCO2 POC ABG pO2 ABG pO2 ABG HCO3 ABG Base Excess ABG Hemoglobin Oxyhemoglobin Sodium Potassium Chloride Carbon Dioxide BUN 85 H Creatinine 1.7 H Glucose 105 H POC Glucose 114 H 110 H Lactic Acid Calcium Ionized Calcium Phosphorus Magnesium 2.40 H Direct Bilirubin AST ALT Alkaline Phosphatase Lactate Dehydrogenase Troponin T C-Reactive Protein Total Protein Albumin Prealbumin Triglycerides Cholesterol LDL Cholesterol Direct HDL Cholesterol 25-OH Vitamin D Total PTH Intact Urine pH Urine WBC (Auto) Urine Creatinine Urine Total Protein Fluid Total Protein Vancomycin Trough Rheumatoid Factor Complement C4 Miscellaneous Test Crossmatch 01/29/17 01/29/17 01/30/17 18:24 23:41 05:12 WBC RBC Hgb Hct MCV MCH MCHC RDW Plt Count Lymph % (Auto) [place] % (Auto) Lymph # [place] # Baso # Seg Neutrophils % Seg Neuts % (Manual) Lymphocytes % (Manual) Monocytes % (Manual) Eosinophils % (Manual) Basophils % (Manual) Nucleated RBC % Seg Neutrophils # Seg Neutrophils # Man Lymphocytes # (Manual) Monocytes # (Manual) Eosinophils # (Manual) Basophils # (Manual) PT INR Fibrinogen dRVVT Confirm Interp Factor V Activity POC ABG pH POC ABG pCO2 POC ABG pO2 ABG pO2 ABG HCO3 ABG Base Excess ABG Hemoglobin Oxyhemoglobin Sodium Potassium Chloride Carbon Dioxide BUN Creatinine Glucose POC Glucose 109 H 134 H 109 H Lactic Acid Calcium Ionized Calcium Phosphorus Magnesium Direct Bilirubin AST ALT Alkaline Phosphatase Lactate Dehydrogenase Troponin T C-Reactive Protein Total Protein Albumin Prealbumin Triglycerides Cholesterol LDL Cholesterol Direct HDL Cholesterol 25-OH Vitamin D Total PTH Intact Urine pH Urine WBC (Auto) Urine Creatinine Urine Total Protein Fluid Total Protein Vancomycin Trough Rheumatoid Factor Complement C4 Miscellaneous Test Crossmatch 01/30/17 01/30/17 01/30/17 11:26 17:43 23:39 WBC RBC Hgb Hct MCV MCH MCHC RDW Plt Count Lymph % (Auto) [place] % (Auto) Lymph # [place] # Baso # Seg Neutrophils % Seg Neuts % (Manual) Lymphocytes % (Manual) Monocytes % (Manual) Eosinophils % (Manual) Basophils % (Manual) Nucleated RBC % Seg Neutrophils # Seg Neutrophils # Man Lymphocytes # (Manual) Monocytes # (Manual) Eosinophils # (Manual) Basophils # (Manual) PT INR Fibrinogen dRVVT Confirm Interp Factor V Activity POC ABG pH POC ABG pCO2 POC ABG pO2 ABG pO2 ABG HCO3 ABG Base Excess ABG Hemoglobin Oxyhemoglobin Sodium Potassium Chloride Carbon Dioxide BUN Creatinine Glucose POC Glucose 135 H 143 H 122 H Lactic Acid Calcium Ionized Calcium Phosphorus Magnesium Direct Bilirubin AST ALT Alkaline Phosphatase Lactate Dehydrogenase Troponin T C-Reactive Protein Total Protein Albumin Prealbumin Triglycerides Cholesterol LDL Cholesterol Direct HDL Cholesterol 25-OH Vitamin D Total PTH Intact Urine pH Urine WBC (Auto) Urine Creatinine Urine Total Protein Fluid Total Protein Vancomycin Trough Rheumatoid Factor Complement C4 Miscellaneous Test Crossmatch 01/31/17 01/31/17 01/31/17 04:00 05:40 11:12 WBC RBC Hgb Hct MCV MCH MCHC RDW Plt Count Lymph % (Auto) [place] % (Auto) Lymph # [place] # Baso # Seg Neutrophils % Seg Neuts % (Manual) Lymphocytes % (Manual) Monocytes % (Manual) Eosinophils % (Manual) Basophils % (Manual) Nucleated RBC % Seg Neutrophils # Seg Neutrophils # Man Lymphocytes # (Manual) Monocytes # (Manual) Eosinophils # (Manual) Basophils # (Manual) PT INR Fibrinogen dRVVT Confirm Interp Factor V Activity POC ABG pH POC ABG pCO2 POC ABG pO2 ABG pO2 ABG HCO3 ABG Base Excess ABG Hemoglobin Oxyhemoglobin Sodium Potassium Chloride Carbon Dioxide BUN 78 H Creatinine 1.5 H Glucose 108 H POC Glucose 123 H Lactic Acid Calcium Ionized Calcium Phosphorus Magnesium Direct Bilirubin AST ALT Alkaline Phosphatase Lactate Dehydrogenase Troponin T C-Reactive Protein 8.10 H Total Protein Albumin Prealbumin Triglycerides Cholesterol LDL Cholesterol Direct HDL Cholesterol 25-OH Vitamin D Total PTH Intact Urine pH Urine WBC (Auto) Urine Creatinine Urine Total Protein Fluid Total Protein Vancomycin Trough Rheumatoid Factor Complement C4 Miscellaneous Test Crossmatch 01/31/17 01/31/17 01/31/17 11:16 17:45 17:50 WBC RBC Hgb Hct MCV MCH MCHC RDW Plt Count Lymph % (Auto) [place] % (Auto) Lymph # [place] # Baso # Seg Neutrophils % Seg Neuts % (Manual) Lymphocytes % (Manual) Monocytes % (Manual) Eosinophils % (Manual) Basophils % (Manual) Nucleated RBC % Seg Neutrophils # Seg Neutrophils # Man Lymphocytes # (Manual) Monocytes # (Manual) Eosinophils # (Manual) Basophils # (Manual) PT INR Fibrinogen dRVVT Confirm Interp Factor V Activity POC ABG pH POC ABG pCO2 POC ABG pO2 ABG pO2 ABG HCO3 ABG Base Excess ABG Hemoglobin Oxyhemoglobin Sodium Potassium Chloride Carbon Dioxide BUN Creatinine Glucose POC Glucose 119 H 111 H Lactic Acid Calcium Ionized Calcium Phosphorus Magnesium Direct Bilirubin AST ALT Alkaline Phosphatase Lactate Dehydrogenase Troponin T C-Reactive Protein Total Protein Albumin Prealbumin Triglycerides Cholesterol LDL Cholesterol Direct HDL Cholesterol 25-OH Vitamin D Total PTH Intact 6.76 L Urine pH Urine WBC (Auto) Urine Creatinine Urine Total Protein Fluid Total Protein Vancomycin Trough Rheumatoid Factor Complement C4 Miscellaneous Test Crossmatch 01/31/17 02/01/17 02/01/17 23:19 05:42 09:24 WBC RBC Hgb Hct MCV MCH MCHC RDW Plt Count Lymph % (Auto) [place] % (Auto) Lymph # [place] # Baso # Seg Neutrophils % Seg Neuts % (Manual) Lymphocytes % (Manual) Monocytes % (Manual) Eosinophils % (Manual) Basophils % (Manual) Nucleated RBC % Seg Neutrophils # Seg Neutrophils # Man Lymphocytes # (Manual) Monocytes # (Manual) Eosinophils # (Manual) Basophils # (Manual) PT INR Fibrinogen dRVVT Confirm Interp Factor V Activity POC ABG pH POC ABG pCO2 POC ABG pO2 ABG pO2 ABG HCO3 ABG Base Excess ABG Hemoglobin Oxyhemoglobin Sodium Potassium Chloride Carbon Dioxide BUN Creatinine Glucose POC Glucose 118 H 122 H Lactic Acid Calcium Ionized Calcium Phosphorus Magnesium 2.60 H Direct Bilirubin AST ALT Alkaline Phosphatase Lactate Dehydrogenase Troponin T C-Reactive Protein Total Protein Albumin Prealbumin Triglycerides Cholesterol LDL Cholesterol Direct HDL Cholesterol 25-OH Vitamin D Total PTH Intact Urine pH Urine WBC (Auto) Urine Creatinine Urine Total Protein Fluid Total Protein Vancomycin Trough Rheumatoid Factor Complement C4 Miscellaneous Test Crossmatch 02/01/17 02/01/17 02/02/17 09:24 12:15 07:40 WBC RBC Hgb Hct MCV MCH MCHC RDW Plt Count Lymph % (Auto) [place] % (Auto) Lymph # [place] # Baso # Seg Neutrophils % Seg Neuts % (Manual) Lymphocytes % (Manual) Monocytes % (Manual) Eosinophils % (Manual) Basophils % (Manual) Nucleated RBC % Seg Neutrophils # Seg Neutrophils # Man Lymphocytes # (Manual) Monocytes # (Manual) Eosinophils # (Manual) Basophils # (Manual) PT INR Fibrinogen dRVVT Confirm Interp Factor V Activity POC ABG pH POC ABG pCO2 POC ABG pO2 ABG pO2 ABG HCO3 ABG Base Excess ABG Hemoglobin Oxyhemoglobin Sodium Potassium Chloride Carbon Dioxide BUN 102 H 72 H Creatinine 1.9 H 1.5 H Glucose 120 H POC Glucose 156 H Lactic Acid Calcium Ionized Calcium Phosphorus Magnesium Direct Bilirubin AST ALT Alkaline Phosphatase Lactate Dehydrogenase Troponin T C-Reactive Protein Total Protein Albumin Prealbumin Triglycerides Cholesterol LDL Cholesterol Direct HDL Cholesterol 25-OH Vitamin D Total PTH Intact Urine pH Urine WBC (Auto) Urine Creatinine Urine Total Protein Fluid Total Protein Vancomycin Trough Rheumatoid Factor Complement C4 Miscellaneous Test Crossmatch 02/02/17 02/02/17 02/03/17 10:16 12:11 00:08 WBC 12.0 H RBC 3.08 L Hgb 8.3 L Hct 25.6 L MCV MCH 27 L MCHC RDW 18.2 H Plt Count Lymph % (Auto) [place] % (Auto) Lymph # [place] # Baso # Seg Neutrophils % 78.4 H Seg Neuts % (Manual) Lymphocytes % (Manual) Monocytes % (Manual) Eosinophils % (Manual) Basophils % (Manual) Nucleated RBC % Seg Neutrophils # 9.4 H Seg Neutrophils # Man Lymphocytes # (Manual) Monocytes # (Manual) Eosinophils # (Manual) Basophils # (Manual) PT INR Fibrinogen dRVVT Confirm Interp Factor V Activity POC ABG pH POC ABG pCO2 POC ABG pO2 ABG pO2 ABG HCO3 ABG Base Excess ABG Hemoglobin Oxyhemoglobin Sodium Potassium Chloride Carbon Dioxide BUN Creatinine Glucose POC Glucose 110 H 120 H Lactic Acid Calcium Ionized Calcium Phosphorus Magnesium Direct Bilirubin AST ALT Alkaline Phosphatase Lactate Dehydrogenase Troponin T C-Reactive Protein Total Protein Albumin Prealbumin Triglycerides Cholesterol LDL Cholesterol Direct HDL Cholesterol 25-OH Vitamin D Total PTH Intact Urine pH Urine WBC (Auto) Urine Creatinine Urine Total Protein Fluid Total Protein Vancomycin Trough Rheumatoid Factor Complement C4 Miscellaneous Test Crossmatch 02/03/17 02/03/17 02/03/17 05:41 07:38 11:31 WBC RBC Hgb Hct MCV MCH MCHC RDW Plt Count Lymph % (Auto) [place] % (Auto) Lymph # [place] # Baso # Seg Neutrophils % Seg Neuts % (Manual) Lymphocytes % (Manual) Monocytes % (Manual) Eosinophils % (Manual) Basophils % (Manual) Nucleated RBC % Seg Neutrophils # Seg Neutrophils # Man Lymphocytes # (Manual) Monocytes # (Manual) Eosinophils # (Manual) Basophils # (Manual) PT INR Fibrinogen dRVVT Confirm Interp Factor V Activity POC ABG pH POC ABG pCO2 POC ABG pO2 ABG pO2 ABG HCO3 ABG Base Excess ABG Hemoglobin Oxyhemoglobin Sodium 134 L Potassium Chloride Carbon Dioxide 21 L BUN 91 H Creatinine 1.9 H Glucose 110 H POC Glucose 119 H 119 H Lactic Acid Calcium 10.3 H Ionized Calcium Phosphorus Magnesium Direct Bilirubin AST ALT Alkaline Phosphatase Lactate Dehydrogenase Troponin T C-Reactive Protein Total Protein Albumin Prealbumin Triglycerides Cholesterol LDL Cholesterol Direct HDL Cholesterol 25-OH Vitamin D Total PTH Intact Urine pH Urine WBC (Auto) Urine Creatinine Urine Total Protein Fluid Total Protein Vancomycin Trough Rheumatoid Factor Complement C4 Miscellaneous Test Crossmatch 02/03/17 02/04/17 02/04/17 17:13 04:00 05:18 WBC RBC Hgb Hct MCV MCH MCHC RDW Plt Count Lymph % (Auto) [place] % (Auto) Lymph # [place] # Baso # Seg Neutrophils % Seg Neuts % (Manual) Lymphocytes % (Manual) Monocytes % (Manual) Eosinophils % (Manual) Basophils % (Manual) Nucleated RBC % Seg Neutrophils # Seg Neutrophils # Man Lymphocytes # (Manual) Monocytes # (Manual) Eosinophils # (Manual) Basophils # (Manual) PT INR Fibrinogen dRVVT Confirm Interp Factor V Activity POC ABG pH POC ABG pCO2 POC ABG pO2 ABG pO2 ABG HCO3 ABG Base Excess ABG Hemoglobin Oxyhemoglobin Sodium 136 L Potassium Chloride Carbon Dioxide BUN 58 H Creatinine 1.3 H Glucose 103 H POC Glucose 133 H 132 H Lactic Acid Calcium Ionized Calcium Phosphorus 2.00 L D Magnesium 1.60 L Direct Bilirubin AST ALT Alkaline Phosphatase Lactate Dehydrogenase Troponin T C-Reactive Protein Total Protein Albumin Prealbumin Triglycerides Cholesterol LDL Cholesterol Direct HDL Cholesterol 25-OH Vitamin D Total PTH Intact Urine pH Urine WBC (Auto) Urine Creatinine Urine Total Protein Fluid Total Protein Vancomycin Trough Rheumatoid Factor Complement C4 Miscellaneous Test Crossmatch 02/05/17 02/05/17 02/05/17 00:01 04:00 06:42 WBC RBC Hgb Hct MCV MCH MCHC RDW Plt Count Lymph % (Auto) [place] % (Auto) Lymph # [place] # Baso # Seg Neutrophils % Seg Neuts % (Manual) Lymphocytes % (Manual) Monocytes % (Manual) Eosinophils % (Manual) Basophils % (Manual) Nucleated RBC % Seg Neutrophils # Seg Neutrophils # Man Lymphocytes # (Manual) Monocytes # (Manual) Eosinophils # (Manual) Basophils # (Manual) PT INR Fibrinogen dRVVT Confirm Interp Factor V Activity POC ABG pH POC ABG pCO2 POC ABG pO2 ABG pO2 ABG HCO3 ABG Base Excess ABG Hemoglobin Oxyhemoglobin Sodium Potassium Chloride Carbon Dioxide BUN 83 H Creatinine 1.8 H Glucose POC Glucose 119 H 110 H Lactic Acid Calcium 10.7 H Ionized Calcium Phosphorus Magnesium Direct Bilirubin AST ALT Alkaline Phosphatase Lactate Dehydrogenase Troponin T C-Reactive Protein Total Protein Albumin Prealbumin Triglycerides Cholesterol LDL Cholesterol Direct HDL Cholesterol 25-OH Vitamin D Total PTH Intact Urine pH Urine WBC (Auto) Urine Creatinine Urine Total Protein Fluid Total Protein Vancomycin Trough Rheumatoid Factor Complement C4 Miscellaneous Test Crossmatch 02/05/17 02/05/17 02/05/17 09:59 11:47 23:44 WBC RBC 2.69 L Hgb 7.2 L Hct 22.5 L MCV MCH 27 L MCHC RDW 18.6 H Plt Count Lymph % (Auto) [place] % (Auto) 9.2 H Lymph # [place] # 0.9 H Baso # Seg Neutrophils % Seg Neuts % (Manual) Lymphocytes % (Manual) Monocytes % (Manual) Eosinophils % (Manual) Basophils % (Manual) Nucleated RBC % Seg Neutrophils # Seg Neutrophils # Man Lymphocytes # (Manual) Monocytes # (Manual) Eosinophils # (Manual) Basophils # (Manual) PT INR Fibrinogen dRVVT Confirm Interp Factor V Activity POC ABG pH POC ABG pCO2 POC ABG pO2 ABG pO2 ABG HCO3 ABG Base Excess ABG Hemoglobin Oxyhemoglobin Sodium Potassium Chloride Carbon Dioxide BUN Creatinine Glucose POC Glucose 130 H 123 H Lactic Acid Calcium Ionized Calcium Phosphorus Magnesium Direct Bilirubin AST ALT Alkaline Phosphatase Lactate Dehydrogenase Troponin T C-Reactive Protein Total Protein Albumin Prealbumin Triglycerides Cholesterol LDL Cholesterol Direct HDL Cholesterol 25-OH Vitamin D Total PTH Intact Urine pH Urine WBC (Auto) Urine Creatinine Urine Total Protein Fluid Total Protein Vancomycin Trough Rheumatoid Factor Complement C4 Miscellaneous Test Crossmatch 02/06/17 02/06/17 02/06/17 04:45 05:58 12:01 WBC RBC Hgb Hct MCV MCH MCHC RDW Plt Count Lymph % (Auto) [place] % (Auto) Lymph # [place] # Baso # Seg Neutrophils % Seg Neuts % (Manual) Lymphocytes % (Manual) Monocytes % (Manual) Eosinophils % (Manual) Basophils % (Manual) Nucleated RBC % Seg Neutrophils # Seg Neutrophils # Man Lymphocytes # (Manual) Monocytes # (Manual) Eosinophils # (Manual) Basophils # (Manual) PT INR Fibrinogen dRVVT Confirm Interp Factor V Activity POC ABG pH POC ABG pCO2 POC ABG pO2 ABG pO2 ABG HCO3 ABG Base Excess ABG Hemoglobin Oxyhemoglobin Sodium Potassium Chloride Carbon Dioxide BUN 101 H Creatinine 2.0 H Glucose 102 H POC Glucose 115 H 132 H Lactic Acid Calcium 10.6 H Ionized Calcium Phosphorus Magnesium Direct Bilirubin AST ALT Alkaline Phosphatase 199 H Lactate Dehydrogenase Troponin T C-Reactive Protein Total Protein Albumin 1.4 L Prealbumin Triglycerides Cholesterol LDL Cholesterol Direct HDL Cholesterol 25-OH Vitamin D Total PTH Intact Urine pH Urine WBC (Auto) Urine Creatinine Urine Total Protein Fluid Total Protein Vancomycin Trough Rheumatoid Factor Complement C4 Miscellaneous Test Crossmatch 02/06/17 02/06/17 02/07/17 17:41 23:32 05:04 WBC RBC Hgb Hct MCV MCH MCHC RDW Plt Count Lymph % (Auto) [place] % (Auto) Lymph # [place] # Baso # Seg Neutrophils % Seg Neuts % (Manual) Lymphocytes % (Manual) Monocytes % (Manual) Eosinophils % (Manual) Basophils % (Manual) Nucleated RBC % Seg Neutrophils # Seg Neutrophils # Man Lymphocytes # (Manual) Monocytes # (Manual) Eosinophils # (Manual) Basophils # (Manual) PT INR Fibrinogen dRVVT Confirm Interp Factor V Activity POC ABG pH POC ABG pCO2 POC ABG pO2 ABG pO2 ABG HCO3 ABG Base Excess ABG Hemoglobin Oxyhemoglobin Sodium Potassium Chloride Carbon Dioxide BUN Creatinine Glucose POC Glucose 134 H 128 H 119 H Lactic Acid Calcium Ionized Calcium Phosphorus Magnesium Direct Bilirubin AST ALT Alkaline Phosphatase Lactate Dehydrogenase Troponin T C-Reactive Protein Total Protein Albumin Prealbumin Triglycerides Cholesterol LDL Cholesterol Direct HDL Cholesterol 25-OH Vitamin D Total PTH Intact Urine pH Urine WBC (Auto) Urine Creatinine Urine Total Protein Fluid Total Protein Vancomycin Trough Rheumatoid Factor Complement C4 Miscellaneous Test Crossmatch 02/07/17 02/07/17 02/07/17 06:30 11:20 17:13 WBC RBC Hgb Hct MCV MCH MCHC RDW Plt Count Lymph % (Auto) [place] % (Auto) Lymph # [place] # Baso # Seg Neutrophils % Seg Neuts % (Manual) Lymphocytes % (Manual) Monocytes % (Manual) Eosinophils % (Manual) Basophils % (Manual) Nucleated RBC % Seg Neutrophils # Seg Neutrophils # Man Lymphocytes # (Manual) Monocytes # (Manual) Eosinophils # (Manual) Basophils # (Manual) PT INR Fibrinogen dRVVT Confirm Interp Factor V Activity POC ABG pH POC ABG pCO2 POC ABG pO2 ABG pO2 ABG HCO3 ABG Base Excess ABG Hemoglobin Oxyhemoglobin Sodium Potassium 3.4 L Chloride Carbon Dioxide BUN 69 H Creatinine 1.5 H Glucose 105 H POC Glucose 117 H 110 H Lactic Acid Calcium Ionized Calcium Phosphorus Magnesium 1.50 L Direct Bilirubin AST ALT Alkaline Phosphatase Lactate Dehydrogenase Troponin T C-Reactive Protein Total Protein Albumin Prealbumin Triglycerides Cholesterol LDL Cholesterol Direct HDL Cholesterol 25-OH Vitamin D Total PTH Intact Urine pH Urine WBC (Auto) Urine Creatinine Urine Total Protein Fluid Total Protein Vancomycin Trough Rheumatoid Factor Complement C4 Miscellaneous Test Crossmatch 02/07/17 02/08/17 02/08/17 20:47 04:00 11:43 WBC RBC Hgb Hct MCV MCH MCHC RDW Plt Count Lymph % (Auto) [place] % (Auto) Lymph # [place] # Baso # Seg Neutrophils % Seg Neuts % (Manual) Lymphocytes % (Manual) Monocytes % (Manual) Eosinophils % (Manual) Basophils % (Manual) Nucleated RBC % Seg Neutrophils # Seg Neutrophils # Man Lymphocytes # (Manual) Monocytes # (Manual) Eosinophils # (Manual) Basophils # (Manual) PT INR Fibrinogen dRVVT Confirm Interp Factor V Activity POC ABG pH POC ABG pCO2 POC ABG pO2 ABG pO2 ABG HCO3 ABG Base Excess ABG Hemoglobin Oxyhemoglobin Sodium Potassium Chloride Carbon Dioxide BUN 86 H Creatinine 1.7 H Glucose POC Glucose 115 H 122 H Lactic Acid Calcium Ionized Calcium Phosphorus Magnesium 1.60 L Direct Bilirubin AST ALT Alkaline Phosphatase Lactate Dehydrogenase Troponin T C-Reactive Protein Total Protein Albumin Prealbumin Triglycerides Cholesterol LDL Cholesterol Direct HDL Cholesterol 25-OH Vitamin D Total PTH Intact Urine pH Urine WBC (Auto) Urine Creatinine Urine Total Protein Fluid Total Protein Vancomycin Trough Rheumatoid Factor Complement C4 Miscellaneous Test Crossmatch 02/08/17 02/09/17 02/09/17 17:36 05:44 11:30 WBC RBC Hgb Hct MCV MCH MCHC RDW Plt Count Lymph % (Auto) [place] % (Auto) Lymph # [place] # Baso # Seg Neutrophils % Seg Neuts % (Manual) Lymphocytes % (Manual) Monocytes % (Manual) Eosinophils % (Manual) Basophils % (Manual) Nucleated RBC % Seg Neutrophils # Seg Neutrophils # Man Lymphocytes # (Manual) Monocytes # (Manual) Eosinophils # (Manual) Basophils # (Manual) PT INR Fibrinogen dRVVT Confirm Interp Factor V Activity POC ABG pH POC ABG pCO2 POC ABG pO2 ABG pO2 ABG HCO3 ABG Base Excess ABG Hemoglobin Oxyhemoglobin Sodium Potassium Chloride Carbon Dioxide BUN Creatinine Glucose POC Glucose 125 H 117 H 120 H Lactic Acid Calcium Ionized Calcium Phosphorus Magnesium Direct Bilirubin AST ALT Alkaline Phosphatase Lactate Dehydrogenase Troponin T C-Reactive Protein Total Protein Albumin Prealbumin Triglycerides Cholesterol LDL Cholesterol Direct HDL Cholesterol 25-OH Vitamin D Total PTH Intact Urine pH Urine WBC (Auto) Urine Creatinine Urine Total Protein Fluid Total Protein Vancomycin Trough Rheumatoid Factor Complement C4 Miscellaneous Test Crossmatch 02/09/17 02/10/17 02/10/17 23:45 05:45 05:50 WBC RBC Hgb Hct MCV MCH MCHC RDW Plt Count Lymph % (Auto) [place] % (Auto) Lymph # [place] # Baso # Seg Neutrophils % Seg Neuts % (Manual) Lymphocytes % (Manual) Monocytes % (Manual) Eosinophils % (Manual) Basophils % (Manual) Nucleated RBC % Seg Neutrophils # Seg Neutrophils # Man Lymphocytes # (Manual) Monocytes # (Manual) Eosinophils # (Manual) Basophils # (Manual) PT INR Fibrinogen dRVVT Confirm Interp Factor V Activity POC ABG pH POC ABG pCO2 POC ABG pO2 ABG pO2 ABG HCO3 ABG Base Excess ABG Hemoglobin Oxyhemoglobin Sodium Potassium Chloride Carbon Dioxide BUN 85 H Creatinine 1.8 H Glucose 109 H POC Glucose 114 H 189 H Lactic Acid Calcium Ionized Calcium Phosphorus Magnesium 2.50 H Direct Bilirubin AST ALT Alkaline Phosphatase Lactate Dehydrogenase Troponin T C-Reactive Protein Total Protein Albumin Prealbumin Triglycerides Cholesterol LDL Cholesterol Direct HDL Cholesterol 25-OH Vitamin D Total PTH Intact Urine pH Urine WBC (Auto) Urine Creatinine Urine Total Protein Fluid Total Protein Vancomycin Trough Rheumatoid Factor Complement C4 Miscellaneous Test Crossmatch 02/10/17 02/10/17 02/10/17 05:51 11:55 17:42 WBC RBC Hgb Hct MCV MCH MCHC RDW Plt Count Lymph % (Auto) [place] % (Auto) Lymph # [place] # Baso # Seg Neutrophils % Seg Neuts % (Manual) Lymphocytes % (Manual) Monocytes % (Manual) Eosinophils % (Manual) Basophils % (Manual) Nucleated RBC % Seg Neutrophils # Seg Neutrophils # Man Lymphocytes # (Manual) Monocytes # (Manual) Eosinophils # (Manual) Basophils # (Manual) PT INR Fibrinogen dRVVT Confirm Interp Factor V Activity POC ABG pH POC ABG pCO2 POC ABG pO2 ABG pO2 ABG HCO3 ABG Base Excess ABG Hemoglobin Oxyhemoglobin Sodium Potassium Chloride Carbon Dioxide BUN Creatinine Glucose POC Glucose 106 H 146 H 132 H Lactic Acid Calcium Ionized Calcium Phosphorus Magnesium Direct Bilirubin AST ALT Alkaline Phosphatase Lactate Dehydrogenase Troponin T C-Reactive Protein Total Protein Albumin Prealbumin Triglycerides Cholesterol LDL Cholesterol Direct HDL Cholesterol 25-OH Vitamin D Total PTH Intact Urine pH Urine WBC (Auto) Urine Creatinine Urine Total Protein Fluid Total Protein Vancomycin Trough Rheumatoid Factor Complement C4 Miscellaneous Test Crossmatch 02/10/17 02/11/1702/11/17 23:43 04:08 05:34 WBC RBC Hgb Hct MCV MCH MCHC RDW Plt Count Lymph % (Auto) [place] % (Auto) Lymph # [place] # Baso # Seg Neutrophils % Seg Neuts % (Manual) Lymphocytes % (Manual) Monocytes % (Manual) Eosinophils % (Manual) Basophils % (Manual) Nucleated RBC % Seg Neutrophils # Seg Neutrophils # Man Lymphocytes # (Manual) Monocytes # (Manual) Eosinophils # (Manual) Basophils # (Manual) PT INR Fibrinogen dRVVT Confirm Interp Factor V Activity POC ABG pH POC ABG pCO2 POC ABG pO2 ABG pO2 ABG HCO3 ABG Base Excess ABG Hemoglobin Oxyhemoglobin Sodium 136 L Potassium Chloride Carbon Dioxide BUN 65 H Creatinine 1.7 H Glucose 105 H POC Glucose 130 H 113 H Lactic Acid Calcium Ionized Calcium Phosphorus Magnesium Direct Bilirubin AST ALT Alkaline Phosphatase Lactate Dehydrogenase Troponin T C-Reactive Protein Total Protein Albumin Prealbumin Triglycerides Cholesterol LDL Cholesterol Direct HDL Cholesterol 25-OH Vitamin D Total PTH Intact Urine pH Urine WBC (Auto) Urine Creatinine Urine Total Protein Fluid Total Protein Vancomycin Trough Rheumatoid Factor Complement C4 Miscellaneous Test Crossmatch 02/11/17 02/11/17 02/12/17 11:56 23:18 06:19 WBC RBC Hgb Hct MCV MCH MCHC RDW Plt Count Lymph % (Auto) [place] % (Auto) Lymph # [place] # Baso # Seg Neutrophils % Seg Neuts % (Manual) Lymphocytes % (Manual) Monocytes % (Manual) Eosinophils % (Manual) Basophils % (Manual) Nucleated RBC % Seg Neutrophils # Seg Neutrophils # Man Lymphocytes # (Manual) Monocytes # (Manual) Eosinophils # (Manual) Basophils # (Manual) PT INR Fibrinogen dRVVT Confirm Interp Factor V Activity POC ABG pH POC ABG pCO2 POC ABG pO2 ABG pO2 ABG HCO3 ABG Base Excess ABG Hemoglobin Oxyhemoglobin Sodium 136 L Potassium Chloride 97.1 L Carbon Dioxide BUN 93 H Creatinine 2.4 H Glucose POC Glucose 126 H 119 H Lactic Acid Calcium 11.0 H Ionized Calcium Phosphorus Magnesium Direct Bilirubin AST ALT Alkaline Phosphatase Lactate Dehydrogenase Troponin T C-Reactive Protein Total Protein Albumin Prealbumin Triglycerides Cholesterol LDL Cholesterol Direct HDL Cholesterol 25-OH Vitamin D Total PTH Intact Urine pH Urine WBC (Auto) Urine Creatinine Urine Total Protein Fluid Total Protein Vancomycin Trough Rheumatoid Factor Complement C4 Miscellaneous Test Crossmatch 02/12/17 02/12/1702/12/17 08:00 10:25 11:42 WBC 15.4 H RBC 2.63 L Hgb 6.9 L Hct 22.6 L MCV MCH 26 L MCHC RDW 20.5 H Plt Count Lymph % (Auto) [place] % (Auto) Lymph # [place] # Baso # Seg Neutrophils % Seg Neuts % (Manual) Lymphocytes % (Manual) Monocytes % (Manual) Eosinophils % (Manual) Basophils % (Manual) Nucleated RBC % Seg Neutrophils # Seg Neutrophils # Man Lymphocytes # (Manual) Monocytes # (Manual) Eosinophils # (Manual) Basophils # (Manual) PT INR Fibrinogen dRVVT Confirm Interp Factor V Activity POC ABG pH POC ABG pCO2 POC ABG pO2 ABG pO2 ABG HCO3 ABG Base Excess ABG Hemoglobin Oxyhemoglobin Sodium Potassium Chloride Carbon Dioxide BUN Creatinine Glucose POC Glucose 142 H Lactic Acid Calcium Ionized Calcium Phosphorus Magnesium Direct Bilirubin AST ALT Alkaline Phosphatase Lactate Dehydrogenase Troponin T C-Reactive Protein Total Protein Albumin Prealbumin Triglycerides Cholesterol LDL Cholesterol Direct HDL Cholesterol 25-OH Vitamin D Total PTH Intact Urine pH Urine WBC (Auto) Urine Creatinine Urine Total Protein Fluid Total Protein Vancomycin Trough Rheumatoid Factor Complement C4 Miscellaneous Test Crossmatch See Detail 02/12/17 02/13/17 02/13/17 18:04 00:04 05:00 WBC RBC Hgb Hct MCV MCH MCHC RDW Plt Count Lymph % (Auto) [place] % (Auto) Lymph # [place] # Baso # Seg Neutrophils % Seg Neuts % (Manual) Lymphocytes % (Manual) Monocytes % (Manual) Eosinophils % (Manual) Basophils % (Manual) Nucleated RBC % Seg Neutrophils # Seg Neutrophils # Man Lymphocytes # (Manual) Monocytes # (Manual) Eosinophils # (Manual) Basophils # (Manual) PT INR Fibrinogen dRVVT Confirm Interp Factor V Activity POC ABG pH POC ABG pCO2 POC ABG pO2 ABG pO2 ABG HCO3 ABG Base Excess ABG Hemoglobin Oxyhemoglobin Sodium 134 L Potassium Chloride 96.1 L Carbon Dioxide 20 L BUN 125 H Creatinine 3.0 H Glucose 111 H POC Glucose 135 H 109 H Lactic Acid Calcium 11.3 H Ionized Calcium Phosphorus Magnesium Direct Bilirubin AST ALT Alkaline Phosphatase Lactate Dehydrogenase Troponin T C-Reactive Protein Total Protein Albumin Prealbumin Triglycerides Cholesterol LDL Cholesterol Direct HDL Cholesterol 25-OH Vitamin D Total PTH Intact Urine pH Urine WBC (Auto) Urine Creatinine Urine Total Protein Fluid Total Protein Vancomycin Trough Rheumatoid Factor Complement C4 Miscellaneous Test Crossmatch 02/13/17 02/13/17 02/13/17 05:00 05:28 12:03 WBC 11.9 H RBC 2.92 L Hgb 7.8 L Hct 25.2 L MCV MCH 27 L MCHC RDW 19.3 H Plt Count Lymph % (Auto) [place] % (Auto) Lymph # [place] # Baso # Seg Neutrophils % Seg Neuts % (Manual) Lymphocytes % (Manual) Monocytes % (Manual) Eosinophils % (Manual) Basophils % (Manual) Nucleated RBC % Seg Neutrophils # Seg Neutrophils # Man Lymphocytes # (Manual) Monocytes # (Manual) Eosinophils # (Manual) Basophils # (Manual) PT INR Fibrinogen dRVVT Confirm Interp Factor V Activity POC ABG pH POC ABG pCO2 POC ABG pO2 ABG pO2 ABG HCO3 ABG Base Excess ABG Hemoglobin Oxyhemoglobin Sodium Potassium Chloride Carbon Dioxide BUN Creatinine Glucose POC Glucose 124 H 160 H Lactic Acid Calcium Ionized Calcium Phosphorus Magnesium Direct Bilirubin AST ALT Alkaline Phosphatase Lactate Dehydrogenase Troponin T C-Reactive Protein Total Protein Albumin Prealbumin Triglycerides Cholesterol LDL Cholesterol Direct HDL Cholesterol 25-OH Vitamin D Total PTH Intact Urine pH Urine WBC (Auto) Urine Creatinine Urine Total Protein Fluid Total Protein Vancomycin Trough Rheumatoid Factor Complement C4 Miscellaneous Test Crossmatch 02/13/17 02/14/17 02/14/17 18:09 06:16 08:08 WBC 15.2 H RBC 2.97 L Hgb 8.1 L Hct 26.3 L MCV MCH MCHC RDW 19.3 H Plt Count Lymph % (Auto) [place] % (Auto) Lymph # [place] # Baso # Seg Neutrophils % Seg Neuts % (Manual) Lymphocytes % (Manual) Monocytes % (Manual) Eosinophils % (Manual) Basophils % (Manual) Nucleated RBC % Seg Neutrophils # Seg Neutrophils # Man Lymphocytes # (Manual) Monocytes # (Manual) Eosinophils # (Manual) Basophils # (Manual) PT INR Fibrinogen dRVVT Confirm Interp Factor V Activity POC ABG pH POC ABG pCO2 POC ABG pO2 ABG pO2 ABG HCO3 ABG Base Excess ABG Hemoglobin Oxyhemoglobin Sodium Potassium Chloride Carbon Dioxide BUN Creatinine Glucose POC Glucose 110 H 112 H Lactic Acid Calcium Ionized Calcium Phosphorus Magnesium Direct Bilirubin AST ALT Alkaline Phosphatase Lactate Dehydrogenase Troponin T C-Reactive Protein Total Protein Albumin Prealbumin Triglycerides Cholesterol LDL Cholesterol Direct HDL Cholesterol 25-OH Vitamin D Total PTH Intact Urine pH Urine WBC (Auto) Urine Creatinine Urine Total Protein Fluid Total Protein Vancomycin Trough Rheumatoid Factor Complement C4 Miscellaneous Test Crossmatch 02/14/17 02/14/17 02/15/17 08:08 17:41 04:15 WBC RBC Hgb Hct MCV MCH MCHC RDW Plt Count Lymph % (Auto) [place] % (Auto) Lymph # [place] # Baso # Seg Neutrophils % Seg Neuts % (Manual) Lymphocytes % (Manual) Monocytes % (Manual) Eosinophils % (Manual) Basophils % (Manual) Nucleated RBC % Seg Neutrophils # Seg Neutrophils # Man Lymphocytes # (Manual) Monocytes # (Manual) Eosinophils # (Manual) Basophils # (Manual) PT INR Fibrinogen dRVVT Confirm Interp Factor V Activity POC ABG pH POC ABG pCO2 POC ABG pO2 ABG pO2 ABG HCO3 ABG Base Excess ABG Hemoglobin Oxyhemoglobin Sodium Potassium Chloride Carbon Dioxide 18 L 21 L BUN 79 H 113 H Creatinine 2.1 H 2.8 H Glucose POC Glucose 118 H Lactic Acid Calcium 10.7 H Ionized Calcium Phosphorus 1.70 L D Magnesium 1.60 L Direct Bilirubin AST ALT Alkaline Phosphatase Lactate Dehydrogenase Troponin T C-Reactive Protein Total Protein Albumin Prealbumin Triglycerides Cholesterol LDL Cholesterol Direct HDL Cholesterol 25-OH Vitamin D Total PTH Intact Urine pH Urine WBC (Auto) Urine Creatinine Urine Total Protein Fluid Total Protein Vancomycin Trough Rheumatoid Factor Complement C4 Miscellaneous Test Crossmatch 02/15/17 02/15/17 02/15/17 06:06 11:31 17:52 WBC RBC Hgb Hct MCV MCH MCHC RDW Plt Count Lymph % (Auto) [place] % (Auto) Lymph # [place] # Baso # Seg Neutrophils % Seg Neuts % (Manual) Lymphocytes % (Manual) Monocytes % (Manual) Eosinophils % (Manual) Basophils % (Manual) Nucleated RBC % Seg Neutrophils # Seg Neutrophils # Man Lymphocytes # (Manual) Monocytes # (Manual) Eosinophils # (Manual) Basophils # (Manual) PT INR Fibrinogen dRVVT Confirm Interp Factor V Activity POC ABG pH POC ABG pCO2 POC ABG pO2 ABG pO2 ABG HCO3 ABG Base Excess ABG Hemoglobin Oxyhemoglobin Sodium Potassium Chloride Carbon Dioxide BUN Creatinine Glucose POC Glucose 115 H 129 H 201 H Lactic Acid Calcium Ionized Calcium Phosphorus Magnesium Direct Bilirubin AST ALT Alkaline Phosphatase Lactate Dehydrogenase Troponin T C-Reactive Protein Total Protein Albumin Prealbumin Triglycerides Cholesterol LDL Cholesterol Direct HDL Cholesterol 25-OH Vitamin D Total PTH Intact Urine pH Urine WBC (Auto) Urine Creatinine Urine Total Protein Fluid Total Protein Vancomycin Trough Rheumatoid Factor Complement C4 Miscellaneous Test Crossmatch 02/15/17 02/15/17 02/15/17 19:08 19:08 19:08 WBC RBC Hgb Hct MCV MCH MCHC RDW Plt Count Lymph % (Auto) [place] % (Auto) Lymph # [place] # Baso # Seg Neutrophils % Seg Neuts % (Manual) Lymphocytes % (Manual) Monocytes % (Manual) Eosinophils % (Manual) Basophils % (Manual) Nucleated RBC % Seg Neutrophils # Seg Neutrophils # Man Lymphocytes # (Manual) Monocytes # (Manual) Eosinophils # (Manual) Basophils # (Manual) PT INR Fibrinogen dRVVT Confirm Interp Factor V Activity POC ABG pH POC ABG pCO2 POC ABG pO2 ABG pO2 ABG HCO3 ABG Base Excess ABG Hemoglobin Oxyhemoglobin Sodium Potassium Chloride Carbon Dioxide BUN Creatinine Glucose POC Glucose Lactic Acid Calcium Ionized Calcium 6.0 H Phosphorus Magnesium Direct Bilirubin AST ALT Alkaline Phosphatase Lactate Dehydrogenase Troponin T C-Reactive Protein Total Protein Albumin Prealbumin Triglycerides Cholesterol LDL Cholesterol Direct HDL Cholesterol 25-OH Vitamin D Total 13 L PTH Intact 10.88 L Urine pH Urine WBC (Auto) Urine Creatinine Urine Total Protein Fluid Total Protein Vancomycin Trough Rheumatoid Factor Complement C4 Miscellaneous Test Crossmatch 02/16/17 02/16/17 02/16/17 05:12 06:00 12:39 WBC RBC Hgb Hct MCV MCH MCHC RDW Plt Count Lymph % (Auto) [place] % (Auto) Lymph # [place] # Baso # Seg Neutrophils % Seg Neuts % (Manual) Lymphocytes % (Manual) Monocytes % (Manual) Eosinophils % (Manual) Basophils % (Manual) Nucleated RBC % Seg Neutrophils # Seg Neutrophils # Man Lymphocytes # (Manual) Monocytes # (Manual) Eosinophils # (Manual) Basophils # (Manual) PT INR Fibrinogen dRVVT Confirm Interp Factor V Activity POC ABG pH POC ABG pCO2 POC ABG pO2 ABG pO2 ABG HCO3 ABG Base Excess ABG Hemoglobin Oxyhemoglobin Sodium Potassium Chloride Carbon Dioxide BUN 74 H Creatinine 1.7 H Glucose 102 H POC Glucose 125 H 109 H Lactic Acid Calcium Ionized Calcium Phosphorus 2.10 L D Magnesium Direct Bilirubin AST ALT Alkaline Phosphatase Lactate Dehydrogenase Troponin T C-Reactive Protein Total Protein Albumin Prealbumin Triglycerides Cholesterol LDL Cholesterol Direct HDL Cholesterol 25-OH Vitamin D Total PTH Intact Urine pH Urine WBC (Auto) Urine Creatinine Urine Total Protein Fluid Total Protein Vancomycin Trough Rheumatoid Factor Complement C4 Miscellaneous Test Crossmatch 02/16/17 02/16/17 02/17/17 17:31 23:57 05:30 WBC RBC Hgb Hct MCV MCH MCHC RDW Plt Count Lymph % (Auto) [place] % (Auto) Lymph # [place] # Baso # Seg Neutrophils % Seg Neuts % (Manual) Lymphocytes % (Manual) Monocytes % (Manual) Eosinophils % (Manual) Basophils % (Manual) Nucleated RBC % Seg Neutrophils # Seg Neutrophils # Man Lymphocytes # (Manual) Monocytes # (Manual) Eosinophils # (Manual) Basophils # (Manual) PT INR Fibrinogen dRVVT Confirm Interp Factor V Activity POC ABG pH POC ABG pCO2 POC ABG pO2 ABG pO2 ABG HCO3 ABG Base Excess ABG Hemoglobin Oxyhemoglobin Sodium Potassium Chloride Carbon Dioxide BUN Creatinine Glucose POC Glucose 106 H 127 H 122 H Lactic Acid Calcium Ionized Calcium Phosphorus Magnesium Direct Bilirubin AST ALT Alkaline Phosphatase Lactate Dehydrogenase Troponin T C-Reactive Protein Total Protein Albumin Prealbumin Triglycerides Cholesterol LDL Cholesterol Direct HDL Cholesterol 25-OH Vitamin D Total PTH Intact Urine pH Urine WBC (Auto) Urine Creatinine Urine Total Protein Fluid Total Protein Vancomycin Trough Rheumatoid Factor Complement C4 Miscellaneous Test Crossmatch 02/17/17 02/17/17 02/17/17 06:00 12:17 17:57 WBC RBC Hgb Hct MCV MCH MCHC RDW Plt Count Lymph % (Auto) [place] % (Auto) Lymph # [place] # Baso # Seg Neutrophils % Seg Neuts % (Manual) Lymphocytes % (Manual) Monocytes % (Manual) Eosinophils % (Manual) Basophils % (Manual) Nucleated RBC % Seg Neutrophils # Seg Neutrophils # Man Lymphocytes # (Manual) Monocytes # (Manual) Eosinophils # (Manual) Basophils # (Manual) PT INR Fibrinogen dRVVT Confirm Interp Factor V Activity POC ABG pH POC ABG pCO2 POC ABG pO2 ABG pO2 ABG HCO3 ABG Base Excess ABG Hemoglobin Oxyhemoglobin Sodium Potassium Chloride Carbon Dioxide BUN 94 H Creatinine 2.3 H Glucose 106 H POC Glucose 173 H 140 H Lactic Acid Calcium Ionized Calcium Phosphorus Magnesium Direct Bilirubin AST ALT Alkaline Phosphatase Lactate Dehydrogenase Troponin T C-Reactive Protein Total Protein Albumin Prealbumin Triglycerides Cholesterol LDL Cholesterol Direct HDL Cholesterol 25-OH Vitamin D Total PTH Intact Urine pH Urine WBC (Auto) Urine Creatinine Urine Total Protein Fluid Total Protein Vancomycin Trough Rheumatoid Factor Complement C4 Miscellaneous Test Crossmatch 02/18/17 02/18/17 02/18/17 00:20 05:30 06:14 WBC RBC Hgb Hct MCV MCH MCHC RDW Plt Count Lymph % (Auto) [place] % (Auto) Lymph # [place] # Baso # Seg Neutrophils % Seg Neuts % (Manual) Lymphocytes % (Manual) Monocytes % (Manual) Eosinophils % (Manual) Basophils % (Manual) Nucleated RBC % Seg Neutrophils # Seg Neutrophils # Man Lymphocytes # (Manual) Monocytes # (Manual) Eosinophils # (Manual) Basophils # (Manual) PT INR Fibrinogen dRVVT Confirm Interp Factor V Activity POC ABG pH POC ABG pCO2 POC ABG pO2 ABG pO2 ABG HCO3 ABG Base Excess ABG Hemoglobin Oxyhemoglobin Sodium 136 L Potassium Chloride 97.5 L Carbon Dioxide BUN 73 H Creatinine 1.9 H Glucose POC Glucose 132 H 106 H Lactic Acid Calcium Ionized Calcium Phosphorus Magnesium Direct Bilirubin AST ALT Alkaline Phosphatase Lactate Dehydrogenase Troponin T C-Reactive Protein Total Protein Albumin Prealbumin Triglycerides Cholesterol LDL Cholesterol Direct HDL Cholesterol 25-OH Vitamin D Total PTH Intact Urine pH Urine WBC (Auto) Urine Creatinine Urine Total Protein Fluid Total Protein Vancomycin Trough Rheumatoid Factor Complement C4 Miscellaneous Test Crossmatch 02/18/17 02/18/17 02/18/17 09:51 11:32 17:59 WBC 13.1 H RBC 2.77 L Hgb 7.6 L Hct 23.9 L MCV MCH MCHC RDW 19.0 H Plt Count Lymph % (Auto) [place] % (Auto) 11.1 H Lymph # [place] # 1.5 H Baso # Seg Neutrophils % Seg Neuts % (Manual) Lymphocytes % (Manual) Monocytes % (Manual) Eosinophils % (Manual) Basophils % (Manual) Nucleated RBC % Seg Neutrophils # 9.1 H Seg Neutrophils # Man Lymphocytes # (Manual) Monocytes # (Manual) Eosinophils # (Manual) Basophils # (Manual) PT INR Fibrinogen dRVVT Confirm Interp Factor V Activity POC ABG pH POC ABG pCO2 POC ABG pO2 ABG pO2 ABG HCO3 ABG Base Excess ABG Hemoglobin Oxyhemoglobin Sodium Potassium Chloride Carbon Dioxide BUN Creatinine Glucose POC Glucose 123 H 119 H Lactic Acid Calcium Ionized Calcium Phosphorus Magnesium Direct Bilirubin AST ALT Alkaline Phosphatase Lactate Dehydrogenase Troponin T C-Reactive Protein Total Protein Albumin Prealbumin Triglycerides Cholesterol LDL Cholesterol Direct HDL Cholesterol 25-OH Vitamin D Total PTH Intact Urine pH Urine WBC (Auto) Urine Creatinine Urine Total Protein Fluid Total Protein Vancomycin Trough Rheumatoid Factor Complement C4 Miscellaneous Test Crossmatch 02/18/17 02/19/17 02/19/17 23:47 05:36 09:45 WBC RBC Hgb Hct MCV MCH 27 L MCHC RDW 19.2 H Plt Count Lymph % (Auto) [place] % (Auto) Lymph # [place] # Baso # Seg Neutrophils % Seg Neuts % (Manual) Lymphocytes % (Manual) Monocytes % (Manual) Eosinophils % (Manual) Basophils % (Manual) Nucleated RBC % Seg Neutrophils # Seg Neutrophils # Man Lymphocytes # (Manual) Monocytes # (Manual) Eosinophils # (Manual) Basophils # (Manual) PT INR Fibrinogen dRVVT Confirm Interp Factor V Activity POC ABG pH POC ABG pCO2 POC ABG pO2 ABG pO2 ABG HCO3 ABG Base Excess ABG Hemoglobin Oxyhemoglobin Sodium Potassium Chloride Carbon Dioxide BUN Creatinine Glucose POC Glucose 110 H 121 H Lactic Acid Calcium Ionized Calcium Phosphorus Magnesium Direct Bilirubin AST ALT Alkaline Phosphatase Lactate Dehydrogenase Troponin T C-Reactive Protein Total Protein Albumin Prealbumin Triglycerides Cholesterol LDL Cholesterol Direct HDL Cholesterol 25-OH Vitamin D Total PTH Intact Urine pH Urine WBC (Auto) Urine Creatinine Urine Total Protein Fluid Total Protein Vancomycin Trough Rheumatoid Factor Complement C4 Miscellaneous Test Crossmatch 02/19/17 02/20/17 02/20/17 09:45 00:10 06:15 WBC RBC Hgb Hct MCV MCH MCHC RDW Plt Count Lymph % (Auto) [place] % (Auto) Lymph # [place] # Baso # Seg Neutrophils % Seg Neuts % (Manual) Lymphocytes % (Manual) Monocytes % (Manual) Eosinophils % (Manual) Basophils % (Manual) Nucleated RBC % Seg Neutrophils # Seg Neutrophils # Man Lymphocytes # (Manual) Monocytes # (Manual) Eosinophils # (Manual) Basophils # (Manual) PT INR Fibrinogen dRVVT Confirm Interp Factor V Activity POC ABG pH POC ABG pCO2 POC ABG pO2 ABG pO2 ABG HCO3 ABG Base Excess ABG Hemoglobin Oxyhemoglobin Sodium 136 L Potassium 5.1 H Chloride 97.6 L Carbon Dioxide 20 L 18 L BUN 110 H 135 H Creatinine 2.6 H 3.2 H Glucose 106 H 110 H POC Glucose 117 H Lactic Acid Calcium Ionized Calcium Phosphorus 4.70 H D 5.60 H Magnesium Direct Bilirubin AST ALT Alkaline Phosphatase Lactate Dehydrogenase Troponin T C-Reactive Protein Total Protein Albumin Prealbumin Triglycerides Cholesterol LDL Cholesterol Direct HDL Cholesterol 25-OH Vitamin D Total PTH Intact Urine pH Urine WBC (Auto) Urine Creatinine Urine Total Protein Fluid Total Protein Vancomycin Trough Rheumatoid Factor Complement C4 Miscellaneous Test Crossmatch 02/20/17 02/20/17 02/21/17 11:30 17:51 00:14 WBC RBC Hgb Hct MCV MCH MCHC RDW Plt Count Lymph % (Auto) [place] % (Auto) Lymph # [place] # Baso # Seg Neutrophils % Seg Neuts % (Manual) Lymphocytes % (Manual) Monocytes % (Manual) Eosinophils % (Manual) Basophils % (Manual) Nucleated RBC % Seg Neutrophils # Seg Neutrophils # Man Lymphocytes # (Manual) Monocytes # (Manual) Eosinophils # (Manual) Basophils # (Manual) PT INR Fibrinogen dRVVT Confirm Interp Factor V Activity POC ABG pH POC ABG pCO2 POC ABG pO2 ABG pO2 ABG HCO3 ABG Base Excess ABG Hemoglobin Oxyhemoglobin Sodium Potassium Chloride Carbon Dioxide BUN Creatinine Glucose POC Glucose 173 H 133 H 125 H Lactic Acid Calcium Ionized Calcium Phosphorus Magnesium Direct Bilirubin AST ALT Alkaline Phosphatase Lactate Dehydrogenase Troponin T C-Reactive Protein Total Protein Albumin Prealbumin Triglycerides Cholesterol LDL Cholesterol Direct HDL Cholesterol 25-OH Vitamin D Total PTH Intact Urine pH Urine WBC (Auto) Urine Creatinine Urine Total Protein Fluid Total Protein Vancomycin Trough Rheumatoid Factor Complement C4 Miscellaneous Test Crossmatch 02/21/17 02/21/17 02/21/17 04:09 05:03 11:58 WBC RBC Hgb Hct MCV MCH MCHC RDW Plt Count Lymph % (Auto) [place] % (Auto) Lymph # [place] # Baso # Seg Neutrophils % Seg Neuts % (Manual) Lymphocytes % (Manual) Monocytes % (Manual) Eosinophils % (Manual) Basophils % (Manual) Nucleated RBC % Seg Neutrophils # Seg Neutrophils # Man Lymphocytes # (Manual) Monocytes # (Manual) Eosinophils # (Manual) Basophils # (Manual) PT INR Fibrinogen dRVVT Confirm Interp Factor V Activity POC ABG pH POC ABG pCO2 POC ABG pO2 ABG pO2 ABG HCO3 ABG Base Excess ABG Hemoglobin Oxyhemoglobin Sodium 135 L Potassium Chloride Carbon Dioxide 20 L BUN 76 H Creatinine 2.0 H Glucose 125 H POC Glucose 134 H 139 H Lactic Acid Calcium Ionized Calcium Phosphorus Magnesium Direct Bilirubin AST ALT Alkaline Phosphatase Lactate Dehydrogenase Troponin T C-Reactive Protein Total Protein Albumin Prealbumin Triglycerides Cholesterol LDL Cholesterol Direct HDL Cholesterol 25-OH Vitamin D Total PTH Intact Urine pH Urine WBC (Auto) Urine Creatinine Urine Total Protein Fluid Total Protein Vancomycin Trough Rheumatoid Factor Complement C4 Miscellaneous Test Crossmatch 02/21/17 02/21/17 02/22/17 17:16 23:41 04:10 WBC RBC Hgb Hct MCV MCH MCHC RDW Plt Count Lymph % (Auto) [place] % (Auto) Lymph # [place] # Baso # Seg Neutrophils % Seg Neuts % (Manual) Lymphocytes % (Manual) Monocytes % (Manual) Eosinophils % (Manual) Basophils % (Manual) Nucleated RBC % Seg Neutrophils # Seg Neutrophils # Man Lymphocytes # (Manual) Monocytes # (Manual) Eosinophils # (Manual) Basophils # (Manual) PT INR Fibrinogen dRVVT Confirm Interp Factor V Activity POC ABG pH POC ABG pCO2 POC ABG pO2 ABG pO2 ABG HCO3 ABG Base Excess ABG Hemoglobin Oxyhemoglobin Sodium 135 L Potassium Chloride 97.7 L Carbon Dioxide 21 L BUN 101 H Creatinine 2.5 H Glucose 116 H POC Glucose 120 H 128 H Lactic Acid Calcium Ionized Calcium Phosphorus Magnesium Direct Bilirubin AST ALT Alkaline Phosphatase Lactate Dehydrogenase Troponin T C-Reactive Protein Total Protein Albumin 1.3 L Prealbumin Triglycerides Cholesterol LDL Cholesterol Direct HDL Cholesterol 25-OH Vitamin D Total PTH Intact Urine pH Urine WBC (Auto) Urine Creatinine Urine Total Protein Fluid Total Protein Vancomycin Trough Rheumatoid Factor Complement C4 Miscellaneous Test Crossmatch 02/22/17 02/22/17 02/22/17 06:03 11:38 18:19 WBC RBC Hgb Hct MCV MCH MCHC RDW Plt Count Lymph % (Auto) [place] % (Auto) Lymph # [place] # Baso # Seg Neutrophils % Seg Neuts % (Manual) Lymphocytes % (Manual) Monocytes % (Manual) Eosinophils % (Manual) Basophils % (Manual) Nucleated RBC % Seg Neutrophils # Seg Neutrophils # Man Lymphocytes # (Manual) Monocytes # (Manual) Eosinophils # (Manual) Basophils # (Manual) PT INR Fibrinogen dRVVT Confirm Interp Factor V Activity POC ABG pH POC ABG pCO2 POC ABG pO2 ABG pO2 ABG HCO3 ABG Base Excess ABG Hemoglobin Oxyhemoglobin Sodium Potassium Chloride Carbon Dioxide BUN Creatinine Glucose POC Glucose 126 H 147 H 121 H Lactic Acid Calcium Ionized Calcium Phosphorus Magnesium Direct Bilirubin AST ALT Alkaline Phosphatase Lactate Dehydrogenase Troponin T C-Reactive Protein Total Protein Albumin Prealbumin Triglycerides Cholesterol LDL Cholesterol Direct HDL Cholesterol 25-OH Vitamin D Total PTH Intact Urine pH Urine WBC (Auto) Urine Creatinine Urine Total Protein Fluid Total Protein Vancomycin Trough Rheumatoid Factor Complement C4 Miscellaneous Test Crossmatch 02/23/17 02/23/17 02/23/17 05:00 05:46 12:27 WBC RBC Hgb Hct MCV MCH MCHC RDW Plt Count Lymph % (Auto) [place] % (Auto) Lymph # [place] # Baso # Seg Neutrophils % Seg Neuts % (Manual) Lymphocytes % (Manual) Monocytes % (Manual) Eosinophils % (Manual) Basophils % (Manual) Nucleated RBC % Seg Neutrophils # Seg Neutrophils # Man Lymphocytes # (Manual) Monocytes # (Manual) Eosinophils # (Manual) Basophils # (Manual) PT INR Fibrinogen dRVVT Confirm Interp Factor V Activity POC ABG pH POC ABG pCO2 POC ABG pO2 ABG pO2 ABG HCO3 ABG Base Excess ABG Hemoglobin Oxyhemoglobin Sodium 136 L Potassium Chloride 97.1 L Carbon Dioxide BUN 50 H Creatinine 1.5 H Glucose POC Glucose 110 H 115 H Lactic Acid Calcium 8.1 L Ionized Calcium Phosphorus 1.90 L D Magnesium Direct Bilirubin AST ALT Alkaline Phosphatase Lactate Dehydrogenase Troponin T C-Reactive Protein Total Protein Albumin Prealbumin Triglycerides Cholesterol LDL Cholesterol Direct HDL Cholesterol 25-OH Vitamin D Total PTH Intact Urine pH Urine WBC (Auto) Urine Creatinine Urine Total Protein Fluid Total Protein Vancomycin Trough Rheumatoid Factor Complement C4 Miscellaneous Test Crossmatch 02/23/17 02/23/17 02/24/17 18:02 23:18 05:04 WBC RBC Hgb Hct MCV MCH MCHC RDW Plt Count Lymph % (Auto) [place] % (Auto) Lymph # [place] # Baso # Seg Neutrophils % Seg Neuts % (Manual) Lymphocytes % (Manual) Monocytes % (Manual) Eosinophils % (Manual) Basophils % (Manual) Nucleated RBC % Seg Neutrophils # Seg Neutrophils # Man Lymphocytes # (Manual) Monocytes # (Manual) Eosinophils # (Manual) Basophils # (Manual) PT INR Fibrinogen dRVVT Confirm Interp Factor V Activity POC ABG pH POC ABG pCO2 POC ABG pO2 ABG pO2 ABG HCO3 ABG Base Excess ABG Hemoglobin Oxyhemoglobin Sodium Potassium Chloride Carbon Dioxide BUN Creatinine Glucose POC Glucose 111 H 126 H 121 H Lactic Acid Calcium Ionized Calcium Phosphorus Magnesium Direct Bilirubin AST ALT Alkaline Phosphatase Lactate Dehydrogenase Troponin T C-Reactive Protein Total Protein Albumin Prealbumin Triglycerides Cholesterol LDL Cholesterol Direct HDL Cholesterol 25-OH Vitamin D Total PTH Intact Urine pH Urine WBC (Auto) Urine Creatinine Urine Total Protein Fluid Total Protein Vancomycin Trough Rheumatoid Factor Complement C4 Miscellaneous Test Crossmatch 02/24/17 02/24/17 02/24/17 05:20 10:05 11:34 WBC RBC 2.95 L Hgb 8.4 L Hct 25.7 L MCV MCH MCHC RDW 20.8 H Plt Count Lymph % (Auto) [place] % (Auto) Lymph # [place] # Baso # Seg Neutrophils % 71.8 H Seg Neuts % (Manual) Lymphocytes % (Manual) Monocytes % (Manual) Eosinophils % (Manual) Basophils % (Manual) Nucleated RBC % Seg Neutrophils # Seg Neutrophils # Man Lymphocytes # (Manual) Monocytes # (Manual) Eosinophils # (Manual) Basophils # (Manual) PT INR Fibrinogen dRVVT Confirm Interp Factor V Activity POC ABG pH POC ABG pCO2 POC ABG pO2 ABG pO2 ABG HCO3 ABG Base Excess ABG Hemoglobin Oxyhemoglobin Sodium 136 L Potassium Chloride 95.5 L Carbon Dioxide BUN 76 H Creatinine 2.2 H Glucose 109 H POC Glucose 123 H Lactic Acid Calcium Ionized Calcium Phosphorus Magnesium Direct Bilirubin AST ALT Alkaline Phosphatase Lactate Dehydrogenase Troponin T C-Reactive Protein Total Protein Albumin Prealbumin Triglycerides Cholesterol LDL Cholesterol Direct HDL Cholesterol 25-OH Vitamin D Total PTH Intact Urine pH Urine WBC (Auto) Urine Creatinine Urine Total Protein Fluid Total Protein Vancomycin Trough Rheumatoid Factor Complement C4 Miscellaneous Test Crossmatch 02/24/17 02/24/17 02/25/17 17:43 23:02 05:00 WBC RBC Hgb Hct MCV MCH MCHC RDW Plt Count Lymph % (Auto) [place] % (Auto) Lymph # [place] # Baso # Seg Neutrophils % Seg Neuts % (Manual) Lymphocytes % (Manual) Monocytes % (Manual) Eosinophils % (Manual) Basophils % (Manual) Nucleated RBC % Seg Neutrophils # Seg Neutrophils # Man Lymphocytes # (Manual) Monocytes # (Manual) Eosinophils # (Manual) Basophils # (Manual) PT INR Fibrinogen dRVVT Confirm Interp Factor V Activity POC ABG pH POC ABG pCO2 POC ABG pO2 ABG pO2 ABG HCO3 ABG Base Excess ABG Hemoglobin Oxyhemoglobin Sodium Potassium Chloride 96.8 L Carbon Dioxide BUN 94 H Creatinine 2.8 H Glucose 118 H POC Glucose 128 H 144 H Lactic Acid Calcium Ionized Calcium Phosphorus Magnesium Direct Bilirubin AST ALT Alkaline Phosphatase Lactate Dehydrogenase Troponin T C-Reactive Protein Total Protein Albumin Prealbumin Triglycerides Cholesterol LDL Cholesterol Direct HDL Cholesterol 25-OH Vitamin D Total PTH Intact Urine pH Urine WBC (Auto) Urine Creatinine Urine Total Protein Fluid Total Protein Vancomycin Trough Rheumatoid Factor Complement C4 Miscellaneous Test Crossmatch 02/25/17 02/25/17 02/25/17 05:32 11:44 18:18 WBC RBC Hgb Hct MCV MCH MCHC RDW Plt Count Lymph % (Auto) [place] % (Auto) Lymph # [place] # Baso # Seg Neutrophils % Seg Neuts % (Manual) Lymphocytes % (Manual) Monocytes % (Manual) Eosinophils % (Manual) Basophils % (Manual) Nucleated RBC % Seg Neutrophils # Seg Neutrophils # Man Lymphocytes # (Manual) Monocytes # (Manual) Eosinophils # (Manual) Basophils # (Manual) PT INR Fibrinogen dRVVT Confirm Interp Factor V Activity POC ABG pH POC ABG pCO2 POC ABG pO2 ABG pO2 ABG HCO3 ABG Base Excess ABG Hemoglobin Oxyhemoglobin Sodium Potassium Chloride Carbon Dioxide BUN Creatinine Glucose POC Glucose 118 H 106 H 210 H Lactic Acid Calcium Ionized Calcium Phosphorus Magnesium Direct Bilirubin AST ALT Alkaline Phosphatase Lactate Dehydrogenase Troponin T C-Reactive Protein Total Protein Albumin Prealbumin Triglycerides Cholesterol LDL Cholesterol Direct HDL Cholesterol 25-OH Vitamin D Total PTH Intact Urine pH Urine WBC (Auto) Urine Creatinine Urine Total Protein Fluid Total Protein Vancomycin Trough Rheumatoid Factor Complement C4 Miscellaneous Test Crossmatch 02/26/17 02/26/17 02/26/17 00:07 05:14 12:07 WBC RBC Hgb Hct MCV MCH MCHC RDW Plt Count Lymph % (Auto) [place] % (Auto) Lymph # [place] # Baso # Seg Neutrophils % Seg Neuts % (Manual) Lymphocytes % (Manual) Monocytes % (Manual) Eosinophils % (Manual) Basophils % (Manual) Nucleated RBC % Seg Neutrophils # Seg Neutrophils # Man Lymphocytes # (Manual) Monocytes # (Manual) Eosinophils # (Manual) Basophils # (Manual) PT INR Fibrinogen dRVVT Confirm Interp Factor V Activity POC ABG pH POC ABG pCO2 POC ABG pO2 ABG pO2 ABG HCO3 ABG Base Excess ABG Hemoglobin Oxyhemoglobin Sodium Potassium Chloride Carbon Dioxide BUN Creatinine Glucose POC Glucose 136 H 142 H 132 H Lactic Acid Calcium Ionized Calcium Phosphorus Magnesium Direct Bilirubin AST ALT Alkaline Phosphatase Lactate Dehydrogenase Troponin T C-Reactive Protein Total Protein Albumin Prealbumin Triglycerides Cholesterol LDL Cholesterol Direct HDL Cholesterol 25-OH Vitamin D Total PTH Intact Urine pH Urine WBC (Auto) Urine Creatinine Urine Total Protein Fluid Total Protein Vancomycin Trough Rheumatoid Factor Complement C4 Miscellaneous Test Crossmatch 02/26/17 02/27/17 02/27/17 23:54 06:25 08:50 WBC RBC Hgb Hct MCV MCH MCHC RDW Plt Count Lymph % (Auto) [place] % (Auto) Lymph # [place] # Baso # Seg Neutrophils % Seg Neuts % (Manual) Lymphocytes % (Manual) Monocytes % (Manual) Eosinophils % (Manual) Basophils % (Manual) Nucleated RBC % Seg Neutrophils # Seg Neutrophils # Man Lymphocytes # (Manual) Monocytes # (Manual) Eosinophils # (Manual) Basophils # (Manual) PT INR Fibrinogen dRVVT Confirm Interp Factor V Activity POC ABG pH POC ABG pCO2 POC ABG pO2 ABG pO2 ABG HCO3 ABG Base Excess ABG Hemoglobin Oxyhemoglobin Sodium Potassium 3.2 L Chloride Carbon Dioxide BUN 95 H Creatinine 2.7 H Glucose 179 H POC Glucose 150 H 138 H Lactic Acid Calcium Ionized Calcium Phosphorus Magnesium Direct Bilirubin AST ALT Alkaline Phosphatase Lactate Dehydrogenase Troponin T C-Reactive Protein Total Protein Albumin Prealbumin Triglycerides Cholesterol LDL Cholesterol Direct HDL Cholesterol 25-OH Vitamin D Total PTH Intact Urine pH Urine WBC (Auto) Urine Creatinine Urine Total Protein Fluid Total Protein Vancomycin Trough Rheumatoid Factor Complement C4 Miscellaneous Test Crossmatch Allied health notes reviewed: nursing
--- NOTE | 2017-02-27 11:35 | Progress Note ---
Assessment and Plan Assessment: 1) Recurrent SIRS: new fever again ? - Likely due to perforated bowel 2) History of Peritonitis: from gastric perforation from dislodged PEG with significant ascites -S/P exlap, repair of gastric perforation with wedge gastrectomy, abdominal washout, drain placement on 10/05 3) History of Candidemia: -Blood cultures positive for Silvia albicans on 09/23 and 09/25 -Blood cultures negative on 09/30 -PICC line changed on 10/03 -Source ? gastric perf (PEG placed on 09/20) +/- TPN +/- central lines -TTE 10/07 no vegetations -PICC exchanged on 10/03 -fully treated with micafungin for 14 days last day 10/13 4) History CA-UTI s/p gutierrez exchanged 5) Diarrhea - ? etiology ? antibiotic-induced, not better. 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 from GI bleed 13) Recent abdominal wall abscess at surgical site-treated 14 ) Recent Enterococcal bacteremia from PICC line infection. 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 -S/P debridement at bedside - new wound cx 01/24 +Proteus and MDR Pseudomonas (resistant to meropenem and cefepime/sensitive to ceftazidime) and wound VAC placement -CRP=24 --> 8 16) Presumed VAP: sputum + MDR Pseudomonas / Proteus / pleural effusion s/p thoracentesis 17) Resp failure - better 18) Perforated bowel: Ct showed presumed perf bowel with free air Plan: -check blood cultures -s/p ceftazidime for 3 weeks- and before that meropenem -s/p flagyl and fluconazole for 7 days -I doubt any antibiotics intervention will help her condition in view of perforated bowel -monitor off antibiotics Thank you Dr Pierre for your consultation, will follow up with you. Pauline Carias MD Infectious Diseases Specialist [facility] ([facility] M [phone] O [phone] Subjective Date of service: 02/27/17 Principal diagnosis: Acute resp failure on MVS; S/P Acute CVA; Acute Encephalopathy; JUANITA Interval history: Interval history: remains on the vent, tachy on monitor, new fever Microbiology: Blood cultures: 09/13 neg 8/ Silvia albicans 09/25 Silvia 09/29 neg 10/07 neg 11/05 neg 11/07 ngtd 10 E faecalis 1 of 4 bottles 11/25 neg 12/27 neg 01/09 ngtd 02/14 ngtd Urine cultures: 09/10 neg 09/13 neg 8/ 10-100K mixed species 10/07 neg 11/05 VRE 11/07 mixed bacteria Respiratory cultures: 09/07 neg 09/13 neg 09/23 neg 11/07 MDR Pseudomonas 11/21 tracheal + VRE 01/09 Pseudomonas x 3 and Proteues Pleural effusion: ngtd Wound cultures: 10/17 abd wall wound purulence + Pseudomonas MDR 01/24 GNRs Stool cultures: 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 +NGT with greenish secretion Neck: +trach in place; supple, no thyromegaly or lymphadenopathy Lungs: brit coarse BS CV: tachy Abdomen: Soft, tender, +old PEG site no drainage. +iliostomy. Right sided Surgical site x 2 with ostomy bags Extremities: +peripheral edema Skin: sacral area wounds - per wound care STAGE 4 PRESSURE INJURY TO SACRAL MEASURES 7.5X6X2.5, WITH UNDERMINING FROM @9-1 [id number] CLEANED WITH WOUND BALLISTICS [employer] [employer]-ULCER NEW - Sacrum wound measuring 9x11cm. Necrotic tissue noted on the wound edges and in the wound bed Now with a wound VAC Psych: somnolent . Neuro: alert non verbal on the vent. Lines: PICC / gutierrez - Constitutional Vitals: Vital Signs Temp Pulse Resp BP Pulse Ox 98.9 F 110 H 28 H 133/72 100 02/27/17 09:50 02/27/17 11:26 02/27/17 11:26 02/27/17 11:26 02/27/17 11:26 Temperature -Last 24 Hours Temperature 98.9 F Temperature 98.9 F Temperature 99.5 F Temperature 101.2 F Temperature 100.4 F Temperature 100.8 F - Labs CBC & Chem 7: 02/24/17 10:05 02/27/17 08:50 Labs: Abnormal lab results 02/26/17 02/26/17 02/27/17 Range/Units 12:07 23:54 06:25 Potassium (3.6-5.0) mmol/L BUN (7-17) mg/dL Creatinine (0.7-1.2) mg/dL Glucose (65-100) mg/dL POC Glucose 132 H 150 H 138 H (70-105) 02/27/17 Range/Units 08:50 Potassium 3.2 L (3.6-5.0) mmol/L BUN 95 H (7-17) mg/dL Creatinine 2.7 H (0.7-1.2) mg/dL Glucose 179 H (65-100) mg/dL POC Glucose (70-105)
[2017-02-27] MEDS: DURAGESIC TD SCH (12:04)
[2017-02-27] MEDS: HEPARIN IV PRN (15:30)
--- NOTE | 2017-02-27 15:49 | Progress Note ---
Assessment and Plan Assessment and plan: Patient is 46-year-old woman with a history of hypertension, diabetes, asthma, hyperlipidemia, chronic kidney disease and anxiety , who was brought in by family because, she couldn't get her words out, her face was also twisted, she was admitted for acute CVA and accelerated hypertension, she had a hx of poor adherence with her medications, and uncontrolled htn. Patient's SBP on admission was noted be greater than 260. TPA was started but this was discontinued after 5 minutes because her blood pressure became uncontrolled. The TPA was not initiated again because the patient was outside the TPA window. Fever obtain UA, UC, blood cx and CXR if continues to spike fever, will consult ID Status post cardiac arrest , 11/21/16 on Mechanical ventilation >96 hrs, >3 months Vent Dependant Respirtory failure secodnary to Anoxic Brain injury S/P Tracheostomy Severe Sepsis with septic shock; has completed abx, case dw ID Surgical wound infection/gram-negative sepsis/candidemia/peritonitis - On TPN ESRD - on HD - Cr 1.9 today Acute CVA with infarct - Neurology input appreciated - CT shows continued evolution of left MCA infarct with slight mass effect and edema, and there is no hemorrhage - PRINCE showed hyperdynamic with ef of 75%, neither clot nor septal defect seen - MRA Brain shows near complete occlusion of M2 and M3 of the left MCA - Repeat CT scan done on 09/11, shows stable findings - carotid doppler negative - Echo shows preserved systolic function but does show some left ventricular diastolic dysfunction - continue asa and statin Persistent vegetative state - This patient's needs placement at SNF - She was denied for LTACH Nosocomial acquired aspiration pneumonia/sepsis/UTI/PERITONITIS - Has been on multiple antibiotics, expect recurrent sepsis due to now known Bowel perforation not amendable to surgery due to clinical condition A. fib with RVR -On amio drip, cannot change to PO due to persistent nausea and vomiting Diabetes type 2. -Continue sliding-scale regular insulin and Accu-Cheks. Hyperlipidemia. Continue statin Severe Protein calorie Malnutrition/Adult failure to thrive - TPN Anemia requiring multiple transfusions/acute blood loss - currently stable - Check AM labs - Will transfuse if it is below 7 Sacral decubitus ulcer - Status post debridement -Wound vac in place Disposition. Very poor prognosis. DNR - The high probability of a clinically significant, sudden or life threatening deterioration of the [neurologic, CV] system(s) required my full and direct attention, intervention and personal management. The aggregate critical care time was [35] minutes. This time is in addition to time spent performing reported procedures but includes the following: [x] Data Review and interpretation [x] Patient assessment and monitoring of vital signs [x] Documentation [x] Medication orders and management History Interval history: patient seen and examined, remains unresponsive on the ventilator. afebrile overnight, no vomiting was tachypneic and tachycardic overnight Hospitalist Physical - Physical exam Narrative exam: GEN: Ill appearing, trach, staring into space,, non purposeful movement NECK: SUPPLE, trach in place, ngt in place and to suction. CVS:Irregular Irregular with LUNGS/CHEST: NORMAL CHEST EXPANSION B, GOOD AIR ENTRY B, tachypena ABD: SOFT, no grimise on abdominal palpation, Ostomy bags at two side by side fistula site. GBS, NO REBOUND OR GUARDING, peg tube in place EXT/SKIN: NO SIGNIFICANT EDEMA BUT WITH UNSTAGEABLE SACRAL DECUB, wound vac inplace MSK: +spontaneous non purposeful movement NEURO: on a ventilator and unresponsive despite being off sedation PSY: Comatose, - Constitutional Vitals: Temp Pulse Resp BP Pulse Ox 99.6 F 108 H 27 H 100/68 100 02/27/17 15:37 02/27/17 15:37 02/27/17 15:37 02/27/17 15:37 02/27/17 15:37 General appearance: Present: no acute distress, well-nourished Results - Labs CBC & Chem 7: 02/24/17 10:05 02/27/17 08:50 Labs: Laboratory Last Values WBC 10.2 K/mm3 (4.5-11.0) 02/24/17 10:05 RBC 2.95 M/mm3 (3.65-5.03) L 02/24/17 10:05 Hgb 8.4 gm/dl (10.1-14.3) L 02/24/17 10:05 Hct 25.7 % (30.3-42.9) L 02/24/17 10:05 MCV 87 fl (79-97) 02/24/17 10:05 MCH 28 pg (28-32) 02/24/17 10:05 MCHC 33 % (30-34) 02/24/17 10:05 RDW 20.8 % (13.2-15.2) H 02/24/17 10:05 Plt Count 333 K/mm3 (140-440) 02/24/17 10:05 Lymph % (Auto) 19.8 % (13.4-35.0) 02/24/17 10:05 Irion % (Auto) 7.2 % (0.0-7.3) 02/24/17 10:05 Eos % (Auto) 0.7 % (0.0-4.3) 02/24/17 10:05 Baso % (Auto) 0.5 % (0.0-1.8) 02/24/17 10:05 Lymph # 2.0 K/mm3 (1.2-5.4) 02/24/17 10:05 Irion # 0.7 K/mm3 (0.0-0.8) 02/24/17 10:05 Eos # 0.1 K/mm3 (0.0-0.4) 02/24/17 10:05 Baso # 0.0 K/mm3 (0.0-0.1) 02/24/17 10:05 Add Manual Diff Complete 12/19/16 05:02 Total Counted 100 12/19/16 05:02 Seg Neutrophils % 71.8 % (40.0-70.0) H 02/24/17 10:05 Seg Neuts % (Manual) 64.0 % (40.0-70.0) 12/19/16 05:02 Band Neutrophils % 15.0 % 12/19/16 05:02 Lymphocytes % (Manual) 13.0 % (13.4-35.0) L 12/19/16 05:02 Reactive Lymphs % (Man) 0 % 12/19/16 05:02 Monocytes % (Manual) 7.0 % (0.0-7.3) 12/19/16 05:02 Eosinophils % (Manual) 0 % (0.0-4.3) 12/19/16 05:02 Basophils % (Manual) 1.0 % (0.0-1.8) 12/19/16 05:02 Metamyelocytes % 0 % 12/19/16 05:02 Myelocytes % 0 % 12/19/16 05:02 Promyelocytes % 0 % 12/19/16 05:02 Blast Cells % 0 % 12/19/16 05:02 Nucleated RBC % 1.0 % (0.0-0.9) H 12/19/16 05:02 Seg Neutrophils # 7.3 K/mm3 (1.8-7.7) 02/24/17 10:05 Seg Neutrophils # Man 12.9 K/mm3 (1.8-7.7) H 12/19/16 05:02 Band Neutrophils # 3.0 K/mm3 12/19/16 05:02 Lymphocytes # (Manual) 2.6 K/mm3 (1.2-5.4) 12/19/16 05:02 Abs React Lymphs (Man) 0.0 K/mm3 12/19/16 05:02 Monocytes # (Manual) 1.4 K/mm3 (0.0-0.8) H 12/19/16 05:02 Eosinophils # (Manual) 0.0 K/mm3 (0.0-0.4) 12/19/16 05:02 Basophils # (Manual) 0.2 K/mm3 (0.0-0.1) H 12/19/16 05:02 Metamyelocytes # 0.0 K/mm3 12/19/16 05:02 Myelocytes # 0.0 K/mm3 12/19/16 05:02 Promyelocytes # 0.0 K/mm3 12/19/16 05:02 Blast Cells # 0.0 K/mm3 12/19/16 05:02 Pathologist Review 09/13/16 04:00 WBC Morphology Not Reportable 12/19/16 05:02 Hypersegmented Neuts Not Reportable 12/19/16 05:02 Hyposegmented Neuts Not Reportable 12/19/16 05:02 Hypogranular Neuts Not Reportable 12/19/16 05:02 Smudge Cells Not Reportable 12/19/16 05:02 Toxic Granulation Not Reportable 12/19/16 05:02 Toxic Vacuolation Not Reportable 12/19/16 05:02 Dohle Bodies Not Reportable 12/19/16 05:02 Pelger-Huet Anomaly Not Reportable 12/19/16 05:02 Jasmina Rods Not Reportable 12/19/16 05:02 Platelet Estimate Consistent w auto 12/19/16 05:02 Clumped Platelets Not Reportable 12/19/16 05:02 Plt Clumps, EDTA Not Reportable 12/19/16 05:02 Large Platelets Not Reportable 12/19/16 05:02 Giant Platelets Not Reportable 12/19/16 05:02 Platelet Satelliting Not Reportable 12/19/16 05:02 Plt Morphology Comment Not Reportable 12/19/16 05:02 RBC Morphology Not Reportable 12/19/16 05:02 Dimorphic RBCs Not Reportable 12/19/16 05:02 Polychromasia Not Reportable 12/19/16 05:02 Hypochromasia Not Reportable 12/19/16 05:02 Poikilocytosis Not Reportable 12/19/16 05:02 Anisocytosis Not Reportable 12/19/16 05:02 Microcytosis Not Reportable 12/19/16 05:02 Macrocytosis Not Reportable 12/19/16 05:02 Spherocytes Not Reportable 12/19/16 05:02 Pappenheimer Bodies Not Reportable 12/19/16 05:02 Sickle Cells Not Reportable 12/19/16 05:02 Target Cells Few 12/19/16 05:02 Tear Drop Cells Not Reportable 12/19/16 05:02 Ovalocytes Not Reportable 12/19/16 05:02 Stomatocytes Rare 12/03/16 04:00 Helmet Cells Not Reportable 12/19/16 05:02 Monet-Zephyr Bodies Not Reportable 12/19/16 05:02 Tina Rings Not Reportable 12/19/16 05:02 Chuck Cells Not Reportable 12/19/16 05:02 Bite Cells Not Reportable 12/19/16 05:02 Crenated Cell Not Reportable 12/19/16 05:02 Elliptocytes Not Reportable 12/19/16 05:02 Acanthocytes (Spur) Not Reportable 12/19/16 05:02 Rouleaux Not Reportable 12/19/16 05:02 Hemoglobin C Crystals Not Reportable 12/19/16 05:02 Schistocytes Not Reportable 12/19/16 05:02 Malaria parasites Not Reportable 12/19/16 05:02 ESR > 140.0 mm/Hr (0-20) 09/08/16 11:48 Jun Bodies Not Reportable 12/19/16 05:02 Hem Pathologist Commnt No 12/19/16 05:02 PT 15.4 Sec. (12.2-14.9) H 01/13/17 15:50 INR 1.16 (0.87-1.13) H 01/13/17 15:50 APTT 33.0 Sec. (24.2-36.6) 10/09/16 03:45 Thrombin Time 16.8 Sec. (15.1-19.6) 09/03/16 00:10 Fibrinogen 750 mg/dl (211-480) H 09/08/16 11:48 Lupus Anticoagulant see below 09/12/16 09:59 LA PTT Baseline See scanned report 09/12/16 09:59 dRVVT Confirm Interp Positive (Negative) H 09/12/16 09:59 dRVVT Screen 50:50 See scanned report 09/12/16 09:59 dRVVT Mix Interpret See scanned report 09/12/16 09:59 Protein C Antigen 122 % (70-140) 09/08/16 15:35 Free Protein S 97 % normal (50-147) 09/08/16 15:35 Total Protein S 109 % (70-140) 09/08/16 15:35 Antithrombin III Ag 100 % (80-120) 09/08/16 15:35 Heparin Anti-Xa, Unfract Negative (Negative) 09/29/16 13:35 Factor V Activity 182 % (65-150) H 09/08/16 15:35 POC ABG pH 7.436 (7.35-7.45) 01/20/17 12: ABG pH 7.450 pH Units (7.350-7.450) 12/05/16 Unknown POC ABG pCO2 35.3 (35-45) 01/20/17 12:17 ABG pCO2 29.6 mm Hg 12/05/16 Unknown POC ABG pO2 70 (80-105) L 01/20/17 12: ABG pO2 75.2 mm Hg (80.0-90.0) L 12/05/16 Unknown POC ABG HCO3 23.8 01/20/17 12:17 ABG HCO3 20.1 mmol/L (20.0-26.0) 12/05/16 Unknown POC ABG Total CO2 25 01/20/17 12:17 POC ABG O2 Sat 94 01/20/17 12:17 ABG O2 Saturation 96.8 % (95.0-99.0) 12/05/16 Unknown ABG O2 Content 9.9 (0.0-44) 12/05/16 Unknown POC ABG Base Excess 0 01/20/17 12:17 ABG Base Excess -3.4 mmol/L (-2.0-3.0) L 12/05/16 Unknown ABG Hemoglobin 7.4 gm/dl (12.0-16.0) L 12/05/16 Unknown ABG Carboxyhemoglobin 1.8 % (0.0-5.0) 12/05/16 Unknown ABG Methemoglobin 0.6 % (0.0-1.5) 12/05/16 Unknown Oxyhemoglobin 94.5 % (95.0-99.0) L 12/05/16 Unknown FiO2 30 % 01/20/17 12:17 Sodium 138 mmol/L (137-145) 02/27/17 08:50 Potassium 3.2 mmol/L (3.6-5.0) L 02/27/17 08:50 Chloride 98.4 mmol/L (98-107) 02/27/17 08:50 Carbon Dioxide 23 mmol/L (22-30) 02/27/17 08:50 Anion Gap 20 mmol/L 02/27/17 08:50 BUN 95 mg/dL (7-17) H 02/27/17 08:50 Creatinine 2.7 mg/dL (0.7-1.2) H 02/27/17 08:50 Estimated GFR 23 ml/min 02/27/17 08:50 BUN/Creatinine Ratio 35 % 02/27/17 08:50 Glucose 179 mg/dL (65-100) H 02/27/17 08:50 POC Glucose 150 (70-105) H 02/27/17 11:50 Osmolality 351 Mosm/kg 09/16/16 11:47 Lactic Acid 2.30 mmol/L (0.7-2.0) H* 01/09/17 08:22 Calcium 9.9 mg/dL (8.4-10.2) 02/27/17 08:50 Ionized Calcium 6.0 mg/dL (4.8-5.6) H 02/15/17 19:08 Phosphorus 3.50 mg/dL (2.5-4.5) 02/27/17 08:50 Magnesium 1.90 mg/dL (1.7-2.3) 02/27/17 08:50 Total Bilirubin 0.50 mg/dL (0.1-1.2) 02/22/17 04:10 Direct Bilirubin 0.2 mg/dL (0-0.2) 01/28/17 04:00 Indirect Bilirubin 0.3 mg/dL 01/28/17 04:00 AST 10 units/L (5-40) 02/22/17 04:10 ALT 7 units/L (7-56) 02/22/17 04:10 Alkaline Phosphatase 95 units/L (35-129) 02/22/17 04:10 Ammonia 27.0 umol/L (25-60) 09/07/16 08:37 Lactate Dehydrogenase 170 units/L (91-180) 01/13/17 15:50 Total Creatine Kinase 121 units/L (30-135) 09/29/16 20:12 CK-MB (CK-2) < 1.0 ng/mL (0.0-4.0) 09/29/16 20:12 CK-MB (CK-2) Rel Index 0.8 (0-4) 09/29/16 20:12 Troponin T 0.204 ng/mL (0.00-0.029) H* 09/29/16 20:12 C-Reactive Protein 8.10 mg/dL (0.00-1.30) H 01/31/17 11:12 Total Protein 7.4 g/dL (6.3-8.2) 02/22/17 04:10 Albumin 1.3 g/dL (3.9-5) L 02/22/17 04:10 Albumin/Globulin Ratio 0.2 % 02/22/17 04:10 Prealbumin 0.110 g/L (0.200-0.400) L 12/29/16 05:15 Triglycerides 55 mg/dL (2-149) 02/06/17 04:45 Cholesterol 31 mg/dL (50-199) L 09/29/16 20:12 LDL Cholesterol Direct 4 mg/dL (50-130) L 09/29/16 20:12 HDL Cholesterol 3 mg/dL (40-59) L 09/29/16 20:12 Cholesterol/HDL Ratio 10.33 % 09/29/16 20:12 Angiotensin Convert Enz See scanned report 09/08/16 11:48 Renin 0.99 ng/mL/h (0.25-5.82) 10/07/16 10:56 Aldosterone <1 ng/dL () 10/07/16 10:56 Aldosterone/Renin Dir see below 10/07/16 10:56 Serotonin Release Assay See scanned report 09/29/16 13:35 25-OH Vitamin D Total 13 ng/mL (30-100) L 02/15/17 19:08 25-Hydroxy Vitamin D2 . 02/15/17 19:08 25-Hydroxy Vitamin D3 . 02/15/17 19:08 TSH 1.010 mlU/mL (0.270-4.200) 09/07/16 08:37 HCG, Qual Negative (Negative) 09/03/16 00:10 PTH Intact 10.88 pg/mL (15-65) L 02/15/17 19:08 Total Cortisol 18.2 mcg/dL () 02/02/17 20:09 Urine Color Yellow (Yellow) 11/05/16 13:09 Urine Turbidity Clear (Clear) 11/05/16 13:09 Urine pH 9.0 (5.0-7.0) H 11/05/16 13:09 Ur Specific Hope 1.011 (1.003-1.030) 11/05/16 13:09 Urine Protein 100 mg/dl mg/dL (Negative) 11/05/16 13:09 Urine Glucose (UA) Neg mg/dL (Negative) 11/05/16 13:09 Urine Ketones Neg mg/dL (Negative) 11/05/16 13:09 Urine Blood Neg (Negative) 11/05/16 13:09 Urine Nitrite Neg (Negative) 11/05/16 13:09 Urine Bilirubin Neg (Negative) 11/05/16 13:09 Urine Urobilinogen < 2.0 mg/dL (<2.0) 11/05/16 13:09 Ur Leukocyte Esterase Neg (Negative) 11/05/16 13:09 Urine WBC (Auto) 4.0 /HPF (0.0-6.0) 11/05/16 13:09 Urine RBC (Auto) 1.0 /HPF (0.0-6.0) 11/05/16 13:09 U Epithel Cells (Auto) 1.0 /HPF (0-13.0) 10/07/16 18:30 Urine Bacteria (Auto) 4+ /HPF (Negative) 11/05/16 13:09 Urine WBC Clumps 2+ /HPF 09/07/16 02:47 Hyaline Casts 4 /LPF 09/07/16 02:47 Urine Mucus Few /HPF 10/07/16 18:30 Urine Yeast (Budding) 3+ /HPF 10/07/16 18:30 Urine Eosinophils None seen (None Seen) 09/07/16 16:00 Urine Total Volume 950 11/12/16 10:18 Urine Creatinine 19.7 mg/dL (0.1-20.0) 11/12/16 10:18 Height (in) 65.0 inches 11/12/16 10:18 Weight (lb) 181.0 lbs 11/12/16 10:18 Creatinine Clearance 5 11/12/16 10:18 Urine Sodium 36 mEq/L 09/16/16 19:19 Urine Total Protein 16 mg/dL (5-11.8) H 09/16/16 19:19 Fluid Type Pleural 01/13/17 12:10 Fluid Color Yellow 01/13/17 12:10 Fluid Appearance Hazy 01/13/17 12:10 Fluid WBC 182 /mm3 01/13/17 12:10 Fluid RBC 41 /mm3 01/13/17 12:10 Fluid Seg Neutrophils 85.0 % 01/13/17 12:10 Fluid Lymphocytes 8.0 % 01/13/17 12:10 Fluid Reactive Lymphs 0 % 01/13/17 12:10 Fluid Monocytes 6.0 % 01/13/17 12:10 Fluid Eosinophils 1.0 % 01/13/17 12:10 Fluid Basophils 0 % 01/13/17 12:10 Fluid Total Protein 3.0 (15.0-45.0) L 01/13/17 12:10 Fluid LDH 1322 01/13/17 12:10 Fluid Comment Diff performed 01/13/17 12:10 Vancomycin Trough 2.3 ug/mL (5.0-20.0) L 09/21/16 13:00 Random Vancomycin 16.5 ug/mL (0-40.0) 11/28/16 09:45 Urine Opiates Screen Presumptive negative 09/03/16 15:11 Urine Methadone Screen Presumptive positive 09/03/16 15:11 Ur Barbiturates Screen Presumptive positive 09/03/16 15:11 Ur Phencyclidine Scrn Presumptive negative 09/03/16 15:11 Ur Amphetamines Screen Presumptive negative 09/03/16 15:11 U Benzodiazepines Scrn Presumptive negative 09/03/16 15:11 Urine Cocaine Screen Presumptive negative 09/03/16 15:11 U Marijuana (THC) Screen Presumptive positive 09/03/16 15:11 Drugs of Abuse Note Disclamer 09/03/16 15:11 Rheumatoid Factor 24 IU/ml (0-13) H 09/08/16 11:48 SAHIL Screen Negative (Negative) 09/07/16 09:20 Proteinase 3 (PR3) Ab <1.0 AI (<1.0) 09/07/16 09:20 Myeloperoxidase Ab <1.0 AI (<1.0) 09/07/16 09:20 Sjogren's Antibody <1.0 AI (<1.0) 09/08/16 15:35 Scl-70 Scleroderma Ab <1.0 AI (<1.0) 09/08/16 15:35 Centromere B Antibody <1.0 AI (<1.0) 09/08/16 12:02 Heparin-induced Plt Ab Negative (Negative) 09/29/16 13:35 UF Heparin High Dose 11 % Release 09/29/16 13:35 SUDHIR UFH Low Dose 0.1 6 % Release 09/29/16 13:35 SUDHIR UFH Low Dose 0.5 8 % Release 09/29/16 13:35 Cardiolipid IgG Ab <14 GPL (<=14) 09/12/16 09:59 Cardiolipid IgA Ab <11 APL (<=11) 09/12/16 09:59 Cardiolipid IgM Ab <12 MPL (<=12) 09/12/16 09:59 Complement C3 148 mg/dL (90-180) 09/07/16 09:20 Complement C4 58 mg/dL (16-47) H 09/07/16 09:20 RPR Nonreactive (Nonreactive) 09/08/16 11:48 Hepatitis A IgM Ab Non-reactive (NonReactive) 09/24/16 14:40 Hep Bs Antigen Non-reactive (Negative) 09/24/16 14:40 Hep B Core IgM Ab Non-reactive (NonReactive) 09/24/16 14:40 Hepatitis C Antibody Non-reactive (NonReactive) 09/24/16 14:40 HIV 1&2 Antibody Rapid Non react (Non React) 09/08/16 11:48 HIV P24 Antigen Non react (Non React) 09/08/16 11:48 Miscellaneous Test Flexitest 1 H 01/09/17 18:45 Blood Type A POSITIVE 02/12/17 10:25 Antibody Screen Negative 02/12/17 10:25 DELORIS Antibody Screen Negative 11/24/16 11:20 Crossmatch See Detail 02/12/17 10:25
[2017-02-27] MEDS ORDERED: TPN ADULT IV SCH (20:00)
[2017-02-27] MEDS ORDERED: INTRALIPID 20% 250 ML IV SCH (20:00)
[2017-02-27] MEDS: TPN ADULT IV SCH ×2 (20:50→21:20)
[2017-02-27] MEDS: CORDARONE 900 MG in D5W 482 ML IV SCH (21:00)
[2017-02-28] MEDS: HumuLIN R SUB-Q SCH ×4 (00:33→18:16)
[2017-02-28] MEDS: REGLAN IV SCH ×3 (06:04→23:28)
[2017-02-28 06:38] LABS: Calcium 9.2 mg/dL (8.4-10.2)
[2017-02-28] MEDS: DUONEB *Not for PRN Use IH SCH ×3 (07:46→19:31)
[2017-02-28] MEDS ORDERED: KPHOS 15 MMOL in NACL 0.9% 250ML 250 ML IV ONE (09:00)
[2017-02-28] MEDS: HEPARIN SUB-Q SCH ×2 (09:49→23:28)
[2017-02-28] MEDS: PEPCID IV SCH (09:49)
--- NOTE | 2017-02-28 10:13 | Progress Note ---
Subjective Date of service: 02/28/17 Principal diagnosis: Acute resp failure on MVS; S/P Acute CVA; Acute Encephalopathy; JUANITA Interval history: No acute events overnight. Objective - Vital Signs Vital signs: Vital Signs - 12hr 02/27/17 02/27/17 02/27/17 22:15 22:30 22:45 Temperature Pulse Rate 101 H 100 H 102 H Pulse Rate [ Apical] Pulse Rate [ From Monitor] Pulse Rate [ Left Dorsalis Pedis] Pulse Rate [ Left Radial] Pulse Rate [ Right Dorsalis Pedis] Pulse Rate [ Right Radial] Pulse Rate [ Throughout] Respiratory 15 16 17 Rate Respiratory Rate [ Throughout] Blood Pressure 93/46 96/48 86/47 O2 Sat by Pulse 100 100 100 Oximetry O2 Sat by Pulse Oximetry [ Assessment] 02/27/17 02/27/17 02/27/17 23:00 23:15 23:19 Temperature Pulse Rate 103 H 102 H 103 H Pulse Rate [ Apical] Pulse Rate [ From Monitor] Pulse Rate [ Left Dorsalis Pedis] Pulse Rate [ Left Radial] Pulse Rate [ Right Dorsalis Pedis] Pulse Rate [ Right Radial] Pulse Rate [ Throughout] Respiratory 22 16 17 Rate Respiratory Rate [ Throughout] Blood Pressure 101/49 84/47 84/47 O2 Sat by Pulse 100 100 100 Oximetry O2 Sat by Pulse Oximetry [ Assessment] 02/27/17 02/27/17 02/27/17 23:30 23:31 23:36 Temperature Pulse Rate 102 H 102 H 105 H Pulse Rate [ Apical] Pulse Rate [ From Monitor] Pulse Rate [ Left Dorsalis Pedis] Pulse Rate [ Left Radial] Pulse Rate [ Right Dorsalis Pedis] Pulse Rate [ Right Radial] Pulse Rate [ Throughout] Respiratory 16 16 Rate Respiratory Rate [ Throughout] Blood Pressure 86/44 86/44 101/49 O2 Sat by Pulse 100 100 100 Oximetry O2 Sat by Pulse Oximetry [ Assessment] 02/27/17 02/27/17 02/28/17 23:37 23:45 00:00 Temperature 99.3 F Pulse Rate 102 H 106 H Pulse Rate [ 108 H Apical] Pulse Rate [ 108 H From Monitor] Pulse Rate [ 108 H Left Dorsalis Pedis] Pulse Rate [ 108 H Left Radial] Pulse Rate [ 108 H Right Dorsalis Pedis] Pulse Rate [ 108 H Right Radial] Pulse Rate [ Throughout] Respiratory 16 22 Rate Respiratory Rate [ Throughout] Blood Pressure 92/47 105/59 O2 Sat by Pulse 100 100 Oximetry O2 Sat by Pulse Oximetry [ Assessment] 02/28/17 02/28/17 02/28/17 00:15 00:30 00:45 Temperature Pulse Rate 105 H 103 H 102 H Pulse Rate [ Apical] Pulse Rate [ From Monitor] Pulse Rate [ Left Dorsalis Pedis] Pulse Rate [ Left Radial] Pulse Rate [ Right Dorsalis Pedis] Pulse Rate [ Right Radial] Pulse Rate [ Throughout] Respiratory 21 16 18 Rate Respiratory Rate [ Throughout] Blood Pressure 108/52 96/50 100/49 O2 Sat by Pulse 100 100 100 Oximetry O2 Sat by Pulse Oximetry [ Assessment] 02/28/17 02/28/17 02/28/17 01:00 01:15 01:30 Temperature Pulse Rate 101 H 101 H 99 H Pulse Rate [ Apical] Pulse Rate [ From Monitor] Pulse Rate [ Left Dorsalis Pedis] Pulse Rate [ Left Radial] Pulse Rate [ Right Dorsalis Pedis] Pulse Rate [ Right Radial] Pulse Rate [ Throughout] Respiratory 23 20 14 Rate Respiratory Rate [ Throughout] Blood Pressure 105/47 103/49 107/50 O2 Sat by Pulse 100 100 100 Oximetry O2 Sat by Pulse Oximetry [ Assessment] 02/28/17 02/28/17 02/28/17 01:45 02:00 02:15 Temperature Pulse Rate 101 H 103 H 103 H Pulse Rate [ Apical] Pulse Rate [ From Monitor] Pulse Rate [ Left Dorsalis Pedis] Pulse Rate [ Left Radial] Pulse Rate [ Right Dorsalis Pedis] Pulse Rate [ Right Radial] Pulse Rate [ Throughout] Respiratory 17 22 17 Rate Respiratory Rate [ Throughout] Blood Pressure 100/57 97/52 103/49 O2 Sat by Pulse 100 100 100 Oximetry O2 Sat by Pulse Oximetry [ Assessment] 02/28/17 02/28/17 02/28/17 02:30 02:45 03:00 Temperature Pulse Rate 98 H 102 H 101 H Pulse Rate [ Apical] Pulse Rate [ From Monitor] Pulse Rate [ Left Dorsalis Pedis] Pulse Rate [ Left Radial] Pulse Rate [ Right Dorsalis Pedis] Pulse Rate [ Right Radial] Pulse Rate [ Throughout] Respiratory 13 20 20 Rate Respiratory Rate [ Throughout] Blood Pressure 95/46 118/65 104/51 O2 Sat by Pulse 100 100 100 Oximetry O2 Sat by Pulse Oximetry [ Assessment] 02/28/17 02/28/17 02/28/17 03:15 03:30 03:45 Temperature Pulse Rate 101 H 97 H 103 H Pulse Rate [ Apical] Pulse Rate [ From Monitor] Pulse Rate [ Left Dorsalis Pedis] Pulse Rate [ Left Radial] Pulse Rate [ Right Dorsalis Pedis] Pulse Rate [ Right Radial] Pulse Rate [ Throughout] Respiratory 19 17 22 Rate Respiratory Rate [ Throughout] Blood Pressure 94/49 103/49 103/49 O2 Sat by Pulse 100 100 100 Oximetry O2 Sat by Pulse Oximetry [ Assessment] 02/28/17 02/28/17 02/28/17 03:46 03:52 04:00 Temperature 100.1 F H Pulse Rate 105 H 107 H Pulse Rate [ 110 H Apical] Pulse Rate [ 110 H From Monitor] Pulse Rate [ 110 H Left Dorsalis Pedis] Pulse Rate [ 110 H Left Radial] Pulse Rate [ 110 H Right Dorsalis Pedis] Pulse Rate [ 110 H Right Radial] Pulse Rate [ Throughout] Respiratory 25 H Rate Respiratory Rate [ Throughout] Blood Pressure 109/60 94/51 O2 Sat by Pulse 100 100 Oximetry O2 Sat by Pulse 100 Oximetry [ Assessment] 02/28/17 02/28/17 02/28/17 04:15 04:30 04:45 Temperature Pulse Rate 114 H 107 H 106 H Pulse Rate [ Apical] Pulse Rate [ From Monitor] Pulse Rate [ Left Dorsalis Pedis] Pulse Rate [ Left Radial] Pulse Rate [ Right Dorsalis Pedis] Pulse Rate [ Right Radial] Pulse Rate [ Throughout] Respiratory 19 14 22 Rate Respiratory Rate [ Throughout] Blood Pressure 93/61 90/41 93/39 O2 Sat by Pulse 100 100 100 Oximetry O2 Sat by Pulse Oximetry [ Assessment] 02/28/17 02/28/17 02/28/17 05:00 05:15 05:30 Temperature Pulse Rate 107 H 103 H 102 H Pulse Rate [ Apical] Pulse Rate [ From Monitor] Pulse Rate [ Left Dorsalis Pedis] Pulse Rate [ Left Radial] Pulse Rate [ Right Dorsalis Pedis] Pulse Rate [ Right Radial] Pulse Rate [ Throughout] Respiratory 26 H 24 22 Rate Respiratory Rate [ Throughout] Blood Pressure 93/39 105/47 92/41 O2 Sat by Pulse 97 100 98 Oximetry O2 Sat by Pulse Oximetry [ Assessment] 01/09/18 01/09/18 01/09/18 05:45 06:00 06:15 Temperature Pulse Rate 104 H 104 H 110 H Pulse Rate [ Apical] Pulse Rate [ From Monitor] Pulse Rate [ Left Dorsalis Pedis] Pulse Rate [ Left Radial] Pulse Rate [ Right Dorsalis Pedis] Pulse Rate [ Right Radial] Pulse Rate [ Throughout] Respiratory 21 20 19 Rate Respiratory Rate [ Throughout] Blood Pressure 100/45 90/36 108/51 O2 Sat by Pulse 100 100 99 Oximetry O2 Sat by Pulse Oximetry [ Assessment] 02/28/17 02/28/17 02/28/17 06:30 06:45 07:00 Temperature Pulse Rate 109 H 106 H 106 H Pulse Rate [ Apical] Pulse Rate [ From Monitor] Pulse Rate [ Left Dorsalis Pedis] Pulse Rate [ Left Radial] Pulse Rate [ Right Dorsalis Pedis] Pulse Rate [ Right Radial] Pulse Rate [ Throughout] Respiratory 21 25 H 19 Rate Respiratory Rate [ Throughout] Blood Pressure 106/48 107/50 103/44 O2 Sat by Pulse 99 97 98 Oximetry O2 Sat by Pulse Oximetry [ Assessment] 02/28/17 02/28/17 02/28/17 07:15 07:30 07:45 Temperature Pulse Rate 104 H 101 H 102 H Pulse Rate [ Apical] Pulse Rate [ From Monitor] Pulse Rate [ Left Dorsalis Pedis] Pulse Rate [ Left Radial] Pulse Rate [ Right Dorsalis Pedis] Pulse Rate [ Right Radial] Pulse Rate [ Throughout] Respiratory 21 18 14 Rate Respiratory Rate [ Throughout] Blood Pressure 101/46 93/38 92/44 O2 Sat by Pulse 100 96 100 Oximetry O2 Sat by Pulse Oximetry [ Assessment] 02/28/17 02/28/17 02/28/17 07:46 07:59 08:00 Temperature 101.4 F H Pulse Rate 105 H Pulse Rate [ Apical] Pulse Rate [ From Monitor] Pulse Rate [ Left Dorsalis Pedis] Pulse Rate [ Left Radial] Pulse Rate [ Right Dorsalis Pedis] Pulse Rate [ Right Radial] Pulse Rate [ 102 H 107 H Throughout] Respiratory 20 Rate Respiratory 17 23 Rate [ Throughout] Blood Pressure 91/44 O2 Sat by Pulse 98 Oximetry O2 Sat by Pulse Oximetry [ Assessment] 02/28/17 02/28/17 02/28/17 08:08 08:15 08:30 Temperature Pulse Rate 105 H 119 H Pulse Rate [ Apical] Pulse Rate [ From Monitor] Pulse Rate [ Left Dorsalis Pedis] Pulse Rate [ Left Radial] Pulse Rate [ Right Dorsalis Pedis] Pulse Rate [ Right Radial] Pulse Rate [ Throughout] Respiratory 45 H 41 H Rate Respiratory Rate [ Throughout] Blood Pressure 109/49 116/43 O2 Sat by Pulse 100 100 97 Oximetry O2 Sat by Pulse Oximetry [ Assessment] 02/28/17 02/28/17 08:45 09:00 Temperature Pulse Rate 117 H 114 H Pulse Rate [ Apical] Pulse Rate [ From Monitor] Pulse Rate [ Left Dorsalis Pedis] Pulse Rate [ Left Radial] Pulse Rate [ Right Dorsalis Pedis] Pulse Rate [ Right Radial] Pulse Rate [ Throughout] Respiratory 17 34 H Rate Respiratory Rate [ Throughout] Blood Pressure 91/44 107/57 O2 Sat by Pulse 97 97 Oximetry O2 Sat by Pulse Oximetry [ Assessment] - General Appearance General appearance: intubated (via trach) EENT: ATNC Neck: other (trach ) Respiratory: Present: Other (coarse breath sounds) Cardiology: regular, S1S2 Gastrointestinal: hypoactive bowel sounds Neurologic: other (patient does not respond to tactile/verbal stimuli) Musculoskeletal: other (+dependent edema) - Lab 02/24/17 10:05 02/28/17 06:10 Most recent lab results ABG pH 7.450 pH Units (7.350-7.450) 12/05/16 Unknown ABG pCO2 29.6 mm Hg 12/05/16 Unknown ABG pO2 75.2 mm Hg (80.0-90.0) L 12/05/16 Unknown ABG HCO3 20.1 mmol/L (20.0-26.0) 12/05/16 Unknown ABG O2 Saturation 96.8 % (95.0-99.0) 12/05/16 Unknown Calcium 9.2 mg/dL (8.4-10.2) 02/28/17 06:10 Phosphorus 2.00 mg/dL (2.5-4.5) L D 02/28/17 06:10 Magnesium 1.90 mg/dL (1.7-2.3) 02/27/17 08:50 Urine Creatinine 19.7 mg/dL (0.1-20.0) 11/12/16 10:18 Urine Sodium 36 mEq/L 09/16/16 19:19 Urine Total Protein 16 mg/dL (5-11.8) H 09/16/16 19:19
--- NOTE | 2017-02-28 13:48 | Progress Note ---
Assessment and Plan Patient is 46-year-old woman with a history of hypertension, diabetes mellitus, asthma, hyperlipidemia, chronic kidney disease and anxiety, who was brought in by family because she couldn't get her words out, her face was also twisted, she was admitted for acute CVA and accelerated hypertension, she had a hx of poor adherence with her medications, and uncontrolled hypertension. Patient's SBP on admission was noted be greater than 260. TPA was started but this it was discontinued after 5 minutes because her blood pressure became uncontrolled. The TPA was not initiated again because the patient was outside the TPA window. Patient has had a prolonged hospital stay complicated with recurrent severe sepsis. Patient with most recent event also status post cardiac arrest on 11/21/16 , with CPR and ROSC. Acute on chronic Hypoxemic Respiratory Failure Sepsis -recurrent s/p tracheostomy Hypertension Atrial Fibrillation with RVR Acute encephalopathy s/p CVA Oropharyngeal dysphagia Enterococcal bacteremia Sacral Decubitus Ulcer- unstageable s/p debridement Anemia Obesity JUANITA now on hemodialysis Enteric Fistula - VAP bundle addressed - continue NGT to LIS - continue wound care/wound vac per WCT - Vasopressor if MAP falls < 65mmHg - keep on with daily PSV trials and / or T-piece as tolerated - continue TPN administration (continue TPN; NPO except for meds) - continue airway clearance and secretion management - continue to wean FiO2 for sats > 94% - continue to monitor hemodynamics closely - continue HD/UF per nephrology - continue to follow electrolytes and correct as necessary - continue GI & VTE prophylaxis -transfuse 1 unit PRBC as needed to keep HgH>7g/dL .....she remains critically ill on life sustaining interventions including MVS and at risk for further deterioration including ...assisted prognosis remains poor - Patient Problems (1) Acute respiratory failure with hypoxia Current Visit: Yes Status: Acute (2) Acute blood loss anemia Current Visit: Yes Status: Resolved (3) Acute CVA (cerebrovascular accident) Current Visit: Yes Status: Acute (4) Chronic renal insufficiency Current Visit: Yes Status: Acute (5) Uncontrolled hypertension Current Visit: Yes Status: Acute (6) Leukocytosis (leucocytosis) Current Visit: Yes Status: Acute Qualifiers: Leukocytosis type: leukemoid reaction Qualified Code(s): D72.823 - Leukemoid reaction (7) Dislodged gastrostomy tube Current Visit: Yes Status: Acute (8) Fungemia Current Visit: Yes Status: Resolved (9) Cardiopulmonary arrest with successful resuscitation Current Visit: Yes Status: Acute Subjective Date of service: 02/28/17 Principal diagnosis: Acute resp failure on MVS; S/P Acute CVA; Acute Encephalopathy; JUANITA Interval history: Patient is seen today for: Acute resp failure on MVS; S/P Acute CVA; Acute Encephalopathy; JUANITA Seen and examined at bedside; 24hour events reviewed; nursing and respiratory care staff consulted; no adverse overnight events reported to me; she remains critically ill Patient was made DNR on 02/12/2017 by family, see hospitalist documentation. No new events Vitals, labs, medications, chart reviewed. Discussed with RT and RN Daily SBTs as tolerated. Placed on T-piece today, lasted for 20 minutes. Placed on PSV 01/24, lasted for 2 hours. Was tachypnic with obvious distress. Discussed interdisciplinary rounds Objective - Exam Narrative Exam: GEN: Ill appearing, trach, staring into space,, non purposeful movement NECK: SUPPLE, trach in place, ngt in place and to suction. CVS:Irregular Irregular with LUNGS/CHEST: NORMAL CHEST EXPANSION B, GOOD AIR ENTRY B, tachypena ABD: SOFT, no grimise on abdominal palpation, Ostomy bags at two side by side fistula site. GBS, NO REBOUND OR GUARDING, peg tube in place EXT/SKIN: NO SIGNIFICANT EDEMA BUT WITH UNSTAGEABLE SACRAL DECUB, wound vac in place MSK: +spontaneous non purposeful movement NEURO: on a ventilator and unresponsive despite being off sedation Vital Signs - 12hr 02/28/17 02/28/17 02/28/17 02:00 02:15 02:30 Temperature Pulse Rate 103 H 103 H 98 H Pulse Rate [ Apical] Pulse Rate [ From Monitor] Pulse Rate [ Left Dorsalis Pedis] Pulse Rate [ Left Radial] Pulse Rate [ Right Dorsalis Pedis] Pulse Rate [ Right Radial] Pulse Rate [ Throughout] Respiratory 22 17 13 Rate Respiratory Rate [ Throughout] Blood Pressure 97/52 103/49 95/46 O2 Sat by Pulse 100 100 100 Oximetry O2 Sat by Pulse Oximetry [ Assessment] 02/28/17 02/28/17 02/28/17 02:45 03:00 03:15 Temperature Pulse Rate 102 H 101 H 101 H Pulse Rate [ Apical] Pulse Rate [ From Monitor] Pulse Rate [ Left Dorsalis Pedis] Pulse Rate [ Left Radial] Pulse Rate [ Right Dorsalis Pedis] Pulse Rate [ Right Radial] Pulse Rate [ Throughout] Respiratory 20 20 19 Rate Respiratory Rate [ Throughout] Blood Pressure 118/65 104/51 94/49 O2 Sat by Pulse 100 100 100 Oximetry O2 Sat by Pulse Oximetry [ Assessment] 02/28/17 02/28/17 02/28/17 03:30 03:45 03:46 Temperature 100.1 F H Pulse Rate 97 H 103 H Pulse Rate [ Apical] Pulse Rate [ From Monitor] Pulse Rate [ Left Dorsalis Pedis] Pulse Rate [ Left Radial] Pulse Rate [ Right Dorsalis Pedis] Pulse Rate [ Right Radial] Pulse Rate [ Throughout] Respiratory 17 22 Rate Respiratory Rate [ Throughout] Blood Pressure 103/49 103/49 O2 Sat by Pulse 100 100 Oximetry O2 Sat by Pulse Oximetry [ Assessment] 02/28/17 02/28/17 02/28/17 03:52 04:00 04:15 Temperature Pulse Rate 105 H 107 H 114 H Pulse Rate [ 110 H Apical] Pulse Rate [ 110 H From Monitor] Pulse Rate [ 110 H Left Dorsalis Pedis] Pulse Rate [ 110 H Left Radial] Pulse Rate [ 110 H Right Dorsalis Pedis] Pulse Rate [ 110 H Right Radial] Pulse Rate [ Throughout] Respiratory 25 H 19 Rate Respiratory Rate [ Throughout] Blood Pressure 109/60 94/51 93/61 O2 Sat by Pulse 100 100 100 Oximetry O2 Sat by Pulse 100 Oximetry [ Assessment] 02/28/17 02/28/17 02/28/17 04:30 04:45 05:00 Temperature Pulse Rate 107 H 106 H 107 H Pulse Rate [ Apical] Pulse Rate [ From Monitor] Pulse Rate [ Left Dorsalis Pedis] Pulse Rate [ Left Radial] Pulse Rate [ Right Dorsalis Pedis] Pulse Rate [ Right Radial] Pulse Rate [ Throughout] Respiratory 14 22 26 H Rate Respiratory Rate [ Throughout] Blood Pressure 90/41 93/39 93/39 O2 Sat by Pulse 100 100 97 Oximetry O2 Sat by Pulse Oximetry [ Assessment] 02/28/17 02/28/17 02/28/17 05:15 05:30 05:45 Temperature Pulse Rate 103 H 102 H 104 H Pulse Rate [ Apical] Pulse Rate [ From Monitor] Pulse Rate [ Left Dorsalis Pedis] Pulse Rate [ Left Radial] Pulse Rate [ Right Dorsalis Pedis] Pulse Rate [ Right Radial] Pulse Rate [ Throughout] Respiratory 24 22 21 Rate Respiratory Rate [ Throughout] Blood Pressure 105/47 92/41 100/45 O2 Sat by Pulse 100 98 100 Oximetry O2 Sat by Pulse Oximetry [ Assessment] 02/28/17 02/28/17 02/28/17 06:00 06:15 06:30 Temperature Pulse Rate 104 H 110 H 109 H Pulse Rate [ Apical] Pulse Rate [ From Monitor] Pulse Rate [ Left Dorsalis Pedis] Pulse Rate [ Left Radial] Pulse Rate [ Right Dorsalis Pedis] Pulse Rate [ Right Radial] Pulse Rate [ Throughout] Respiratory 20 19 21 Rate Respiratory Rate [ Throughout] Blood Pressure 90/36 108/51 106/48 O2 Sat by Pulse 100 99 99 Oximetry O2 Sat by Pulse Oximetry [ Assessment] 02/28/17 02/28/17 02/28/17 06:45 07:00 07:15 Temperature Pulse Rate 106 H 106 H 104 H Pulse Rate [ Apical] Pulse Rate [ From Monitor] Pulse Rate [ Left Dorsalis Pedis] Pulse Rate [ Left Radial] Pulse Rate [ Right Dorsalis Pedis] Pulse Rate [ Right Radial] Pulse Rate [ Throughout] Respiratory 25 H 19 21 Rate Respiratory Rate [ Throughout] Blood Pressure 107/50 103/44 101/46 O2 Sat by Pulse 97 98 100 Oximetry O2 Sat by Pulse Oximetry [ Assessment] 02/28/17 02/28/17 02/28/17 07:30 07:45 07:46 Temperature Pulse Rate 101 H 102 H Pulse Rate [ Apical] Pulse Rate [ From Monitor] Pulse Rate [ Left Dorsalis Pedis] Pulse Rate [ Left Radial] Pulse Rate [ Right Dorsalis Pedis] Pulse Rate [ Right Radial] Pulse Rate [ 102 H Throughout] Respiratory 18 14 Rate Respiratory 17 Rate [ Throughout] Blood Pressure 93/38 92/44 O2 Sat by Pulse 96 100 Oximetry O2 Sat by Pulse Oximetry [ Assessment] 02/28/17 02/28/17 02/28/17 07:59 08:00 08:08 Temperature 101.4 F H Pulse Rate 105 H Pulse Rate [ Apical] Pulse Rate [ From Monitor] Pulse Rate [ Left Dorsalis Pedis] Pulse Rate [ Left Radial] Pulse Rate [ Right Dorsalis Pedis] Pulse Rate [ Right Radial] Pulse Rate [ 107 H Throughout] Respiratory 20 Rate Respiratory 23 Rate [ Throughout] Blood Pressure 91/44 O2 Sat by Pulse 98 100 Oximetry O2 Sat by Pulse Oximetry [ Assessment] 02/28/17 02/28/17 02/28/17 08:15 08:30 08:45 Temperature Pulse Rate 105 H 119 H 117 H Pulse Rate [ Apical] Pulse Rate [ From Monitor] Pulse Rate [ Left Dorsalis Pedis] Pulse Rate [ Left Radial] Pulse Rate [ Right Dorsalis Pedis] Pulse Rate [ Right Radial] Pulse Rate [ Throughout] Respiratory 45 H 41 H 17 Rate Respiratory Rate [ Throughout] Blood Pressure 109/49 116/43 91/44 O2 Sat by Pulse 100 97 97 Oximetry O2 Sat by Pulse Oximetry [ Assessment] 02/28/17 02/28/17 02/28/17 09:00 09:15 09:30 Temperature Pulse Rate 114 H 113 H 109 H Pulse Rate [ Apical] Pulse Rate [ From Monitor] Pulse Rate [ Left Dorsalis Pedis] Pulse Rate [ Left Radial] Pulse Rate [ Right Dorsalis Pedis] Pulse Rate [ Right Radial] Pulse Rate [ Throughout] Respiratory 34 H 41 H 40 H Rate Respiratory Rate [ Throughout] Blood Pressure 107/57 108/56 115/60 O2 Sat by Pulse 97 90 100 Oximetry O2 Sat by Pulse Oximetry [ Assessment] 02/28/17 02/28/17 02/28/17 09:45 10:00 10:15 Temperature Pulse Rate 106 H 110 H 108 H Pulse Rate [ Apical] Pulse Rate [ From Monitor] Pulse Rate [ Left Dorsalis Pedis] Pulse Rate [ Left Radial] Pulse Rate [ Right Dorsalis Pedis] Pulse Rate [ Right Radial] Pulse Rate [ Throughout] Respiratory 43 H 41 H 42 H Rate Respiratory Rate [ Throughout] Blood Pressure 105/55 109/56 114/58 O2 Sat by Pulse 100 95 99 Oximetry O2 Sat by Pulse Oximetry [ Assessment] 02/28/17 02/28/17 02/28/17 10:30 10:45 11:00 Temperature Pulse Rate 108 H 110 H 108 H Pulse Rate [ Apical] Pulse Rate [ From Monitor] Pulse Rate [ Left Dorsalis Pedis] Pulse Rate [ Left Radial] Pulse Rate [ Right Dorsalis Pedis] Pulse Rate [ Right Radial] Pulse Rate [ Throughout] Respiratory 41 H 43 H 41 H Rate Respiratory Rate [ Throughout] Blood Pressure 109/57 118/62 118/58 O2 Sat by Pulse 97 100 95 Oximetry O2 Sat by Pulse Oximetry [ Assessment] 02/28/17 02/28/17 02/28/17 11:15 11:30 11:45 Temperature Pulse Rate 111 H 115 H 124 H Pulse Rate [ Apical] Pulse Rate [ From Monitor] Pulse Rate [ Left Dorsalis Pedis] Pulse Rate [ Left Radial] Pulse Rate [ Right Dorsalis Pedis] Pulse Rate [ Right Radial] Pulse Rate [ Throughout] Respiratory 41 H 35 H 25 H Rate Respiratory Rate [ Throughout] Blood Pressure 114/60 133/69 133/69 O2 Sat by Pulse 95 100 97 Oximetry O2 Sat by Pulse Oximetry [ Assessment] 02/28/17 02/28/17 02/28/17 12:00 12:01 12:15 Temperature 100.8 F H Pulse Rate 113 H 111 H Pulse Rate [ Apical] Pulse Rate [ From Monitor] Pulse Rate [ Left Dorsalis Pedis] Pulse Rate [ Left Radial] Pulse Rate [ Right Dorsalis Pedis] Pulse Rate [ Right Radial] Pulse Rate [ Throughout] Respiratory 36 H 38 H Rate Respiratory Rate [ Throughout] Blood Pressure 103/58 104/62 O2 Sat by Pulse 97 98 Oximetry O2 Sat by Pulse Oximetry [ Assessment] 02/28/17 02/28/17 02/28/17 12:53 13:32 13:44 Temperature Pulse Rate 106 H Pulse Rate [ Apical] Pulse Rate [ From Monitor] Pulse Rate [ Left Dorsalis Pedis] Pulse Rate [ Left Radial] Pulse Rate [ Right Dorsalis Pedis] Pulse Rate [ Right Radial] Pulse Rate [ 106 H 106 H Throughout] Respiratory Rate Respiratory 19 21 Rate [ Throughout] Blood Pressure 98/52 O2 Sat by Pulse 98 Oximetry O2 Sat by Pulse Oximetry [ Assessment] Constitutional: appears uncomfortable, other (not tracking) Eyes: non-icteric, other (tracheostomy tube in midline of neck) ENT: oropharynx moist, oropharyngeal exudate pre, other (midline tracheostomy tube) Neck: supple, no lymphadenopathy, no JVD, other (no thyromegaly) Effort: mildly labored Ascultation: Bilateral: clear, diminished breath sounds, rales, rhonchi (and referred upper airway sounds) Percussion: Right: dull (base), Bilateral: not dull Cardiovascular: regular rate and rhythm, other (no rubs / murmurs) Gastrointestinal: hypoactive bowel sounds, soft, non-tender, non-distended, other (RLQ & LUQ stomas with colostomy bags) Integumentary: decubitus ulcer (sacral; stage 4 s/p surgical debridement), other (no rash; no cellulitis; poor turgor) Extremities: no cyanosis, pulses normal, no ischemia or petechiae, edema (1+ bilaterally) Neurologic: pupils equal and round, unable to assess, other (encephalopathic) Psychiatric: other (unable to assess) CBC and BMP: 02/24/17 10:05 03/01/17 04:00 ABG, PT/INR, D-dimer: ABG POC ABG pH 7.436 (7.35-7.45) 01/20/17 12: ABG pH 7.450 pH Units (7.350-7.450) 12/05/16 Unknown POC ABG pCO2 35.3 (35-45) 01/20/17 12: ABG pCO2 29.6 mm Hg 12/05/16 Unknown POC ABG pO2 70 (80-105) L 01/20/17 12:17 ABG pO2 75.2 mm Hg (80.0-90.0) L 12/05/16 Unknown POC ABG HCO3 23.8 01/20/17 12:17 POC ABG Total CO2 25 01/20/17 12:17 POC ABG O2 Sat 94 01/20/17 12: ABG O2 Saturation 96.8 % (95.0-99.0) 12/05/16 Unknown PT/INR, D-dimer PT 15.4 Sec. (12.2-14.9) H 01/13/17 15:50 INR 1.16 (0.87-1.13) H 01/13/17 15:50 Abnormal lab findings: Abnormal Labs 09/03/16 09/03/16 09/03/16 00:03 00:10 00:10 WBC 13.9 H RBC 5.95 H Hgb Hct 44.0 H MCV 74 L MCH 22 L MCHC RDW 17.5 H Plt Count Lymph % (Auto) [place] % (Auto) Lymph # [place] # Baso # Seg Neutrophils % Seg Neuts % (Manual) Lymphocytes % (Manual) 54.0 H Monocytes % (Manual) Eosinophils % (Manual) Basophils % (Manual) Nucleated RBC % Seg Neutrophils # Seg Neutrophils # Man Lymphocytes # (Manual) 7.5 H Monocytes # (Manual) Eosinophils # (Manual) Basophils # (Manual) PT INR Fibrinogen dRVVT Confirm Interp Factor V Activity POC ABG pH POC ABG pCO2 POC ABG pO2 ABG pO2 ABG HCO3 ABG Base Excess ABG Hemoglobin Oxyhemoglobin Sodium Potassium 2.8 L* Chloride Carbon Dioxide 21 L BUN Creatinine 1.7 H Glucose 159 H POC Glucose 177 H Lactic Acid Calcium Ionized Calcium Phosphorus Magnesium Direct Bilirubin AST ALT Alkaline Phosphatase Lactate Dehydrogenase Troponin T C-Reactive Protein Total Protein Albumin Prealbumin Triglycerides Cholesterol LDL Cholesterol Direct HDL Cholesterol 25-OH Vitamin D Total PTH Intact Urine pH Urine WBC (Auto) Urine Creatinine Urine Total Protein Fluid Total Protein Vancomycin Trough Rheumatoid Factor Complement C4 Miscellaneous Test Crossmatch 09/03/16 09/03/16 09/03/16 12:12 15:07 16:20 WBC RBC Hgb Hct MCV MCH MCHC RDW Plt Count Lymph % (Auto) [place] % (Auto) Lymph # [place] # Baso # Seg Neutrophils % Seg Neuts % (Manual) Lymphocytes % (Manual) Monocytes % (Manual) Eosinophils % (Manual) Basophils % (Manual) Nucleated RBC % Seg Neutrophils # Seg Neutrophils # Man Lymphocytes # (Manual) Monocytes # (Manual) Eosinophils # (Manual) Basophils # (Manual) PT INR Fibrinogen dRVVT Confirm Interp Factor V Activity POC ABG pH 7.452 H POC ABG pCO2 POC ABG pO2 ABG pO2 ABG HCO3 ABG Base Excess ABG Hemoglobin Oxyhemoglobin Sodium Potassium Chloride Carbon Dioxide BUN Creatinine Glucose POC Glucose 178 H Lactic Acid Calcium Ionized Calcium Phosphorus 2.20 L Magnesium 1.60 L Direct Bilirubin AST ALT Alkaline Phosphatase Lactate Dehydrogenase Troponin T C-Reactive Protein Total Protein Albumin Prealbumin Triglycerides Cholesterol LDL Cholesterol Direct HDL Cholesterol 25-OH Vitamin D Total PTH Intact Urine pH Urine WBC (Auto) Urine Creatinine Urine Total Protein Fluid Total Protein Vancomycin Trough Rheumatoid Factor Complement C4 Miscellaneous Test Crossmatch 09/03/16 09/03/16 09/03/16 17:57 17:58 23:50 WBC RBC Hgb Hct MCV MCH MCHC RDW Plt Count Lymph % (Auto) [place] % (Auto) Lymph # [place] # Baso # Seg Neutrophils % Seg Neuts % (Manual) Lymphocytes % (Manual) Monocytes % (Manual) Eosinophils % (Manual) Basophils % (Manual) Nucleated RBC % Seg Neutrophils # Seg Neutrophils # Man Lymphocytes # (Manual) Monocytes # (Manual) Eosinophils # (Manual) Basophils # (Manual) PT INR Fibrinogen dRVVT Confirm Interp Factor V Activity POC ABG pH POC ABG pCO2 POC ABG pO2 ABG pO2 ABG HCO3 ABG Base Excess ABG Hemoglobin Oxyhemoglobin Sodium Potassium Chloride Carbon Dioxide BUN Creatinine Glucose POC Glucose 162 H 145 H Lactic Acid Calcium Ionized Calcium Phosphorus 2.30 L Magnesium Direct Bilirubin AST ALT Alkaline Phosphatase Lactate Dehydrogenase Troponin T C-Reactive Protein Total Protein Albumin Prealbumin Triglycerides Cholesterol LDL Cholesterol Direct HDL Cholesterol 25-OH Vitamin D Total PTH Intact Urine pH Urine WBC (Auto) Urine Creatinine Urine Total Protein Fluid Total Protein Vancomycin Trough Rheumatoid Factor Complement C4 Miscellaneous Test Crossmatch 09/04/16 09/04/16 09/04/16 03:31 03:31 05:42 WBC RBC Hgb 9.7 L D Hct MCV 72 L MCH 23 L MCHC RDW 17.5 H Plt Count Lymph % (Auto) 11.1 L [place] % (Auto) Lymph # [place] # Baso # Seg Neutrophils % 84.3 H Seg Neuts % (Manual) Lymphocytes % (Manual) Monocytes % (Manual) Eosinophils % (Manual) Basophils % (Manual) Nucleated RBC % Seg Neutrophils # 8.9 H Seg Neutrophils # Man Lymphocytes # (Manual) Monocytes # (Manual) Eosinophils # (Manual) Basophils # (Manual) PT INR Fibrinogen dRVVT Confirm Interp Factor V Activity POC ABG pH POC ABG pCO2 POC ABG pO2 ABG pO2 ABG HCO3 ABG Base Excess ABG Hemoglobin Oxyhemoglobin Sodium 135 L Potassium 2.9 L* Chloride 97.2 L Carbon Dioxide 19 L BUN Creatinine 1.7 H Glucose 170 H POC Glucose 152 H Lactic Acid Calcium Ionized Calcium Phosphorus Magnesium Direct Bilirubin AST ALT Alkaline Phosphatase Lactate Dehydrogenase Troponin T C-Reactive Protein Total Protein Albumin Prealbumin Triglycerides 160 H Cholesterol LDL Cholesterol Direct HDL Cholesterol 31 L 25-OH Vitamin D Total PTH Intact Urine pH Urine WBC (Auto) Urine Creatinine Urine Total Protein Fluid Total Protein Vancomycin Trough Rheumatoid Factor Complement C4 Miscellaneous Test Crossmatch 09/04/16 09/04/16 09/04/16 11:34 17:46 23:29 WBC RBC Hgb Hct MCV MCH MCHC RDW Plt Count Lymph % (Auto) [place] % (Auto) Lymph # [place] # Baso # Seg Neutrophils % Seg Neuts % (Manual) Lymphocytes % (Manual) Monocytes % (Manual) Eosinophils % (Manual) Basophils % (Manual) Nucleated RBC % Seg Neutrophils # Seg Neutrophils # Man Lymphocytes # (Manual) Monocytes # (Manual) Eosinophils # (Manual) Basophils # (Manual) PT INR Fibrinogen dRVVT Confirm Interp Factor V Activity POC ABG pH POC ABG pCO2 POC ABG pO2 ABG pO2 ABG HCO3 ABG Base Excess ABG Hemoglobin Oxyhemoglobin Sodium Potassium Chloride Carbon Dioxide BUN Creatinine Glucose POC Glucose 165 H 210 H 139 H Lactic Acid Calcium Ionized Calcium Phosphorus Magnesium Direct Bilirubin AST ALT Alkaline Phosphatase Lactate Dehydrogenase Troponin T C-Reactive Protein Total Protein Albumin Prealbumin Triglycerides Cholesterol LDL Cholesterol Direct HDL Cholesterol 25-OH Vitamin D Total PTH Intact Urine pH Urine WBC (Auto) Urine Creatinine Urine Total Protein Fluid Total Protein Vancomycin Trough Rheumatoid Factor Complement C4 Miscellaneous Test Crossmatch 09/05/16 09/05/16 09/05/16 04:05 04:05 05:38 WBC RBC Hgb Hct MCV 76 L D MCH 23 L MCHC RDW 17.8 H Plt Count Lymph % (Auto) [place] % (Auto) Lymph # [place] # Baso # Seg Neutrophils % Seg Neuts % (Manual) Lymphocytes % (Manual) Monocytes % (Manual) Eosinophils % (Manual) Basophils % (Manual) Nucleated RBC % Seg Neutrophils # Seg Neutrophils # Man Lymphocytes # (Manual) Monocytes # (Manual) Eosinophils # (Manual) Basophils # (Manual) PT INR Fibrinogen dRVVT Confirm Interp Factor V Activity POC ABG pH POC ABG pCO2 POC ABG pO2 ABG pO2 ABG HCO3 ABG Base Excess ABG Hemoglobin Oxyhemoglobin Sodium 134 L Potassium Chloride Carbon Dioxide 18 L BUN Creatinine 1.8 H Glucose 192 H POC Glucose 175 H Lactic Acid Calcium Ionized Calcium Phosphorus Magnesium Direct Bilirubin AST ALT Alkaline Phosphatase Lactate Dehydrogenase Troponin T C-Reactive Protein Total Protein Albumin Prealbumin Triglycerides Cholesterol LDL Cholesterol Direct HDL Cholesterol 25-OH Vitamin D Total PTH Intact Urine pH Urine WBC (Auto) Urine Creatinine Urine Total Protein Fluid Total Protein Vancomycin Trough Rheumatoid Factor Complement C4 Miscellaneous Test Crossmatch 09/05/16 09/05/16 09/05/16 11:38 17:48 23:22 WBC RBC Hgb Hct MCV MCH MCHC RDW Plt Count Lymph % (Auto) [place] % (Auto) Lymph # [place] # Baso # Seg Neutrophils % Seg Neuts % (Manual) Lymphocytes % (Manual) Monocytes % (Manual) Eosinophils % (Manual) Basophils % (Manual) Nucleated RBC % Seg Neutrophils # Seg Neutrophils # Man Lymphocytes # (Manual) Monocytes # (Manual) Eosinophils # (Manual) Basophils # (Manual) PT INR Fibrinogen dRVVT Confirm Interp Factor V Activity POC ABG pH POC ABG pCO2 POC ABG pO2 ABG pO2 ABG HCO3 ABG Base Excess ABG Hemoglobin Oxyhemoglobin Sodium Potassium Chloride Carbon Dioxide BUN Creatinine Glucose POC Glucose 164 H 186 H 195 H Lactic Acid Calcium Ionized Calcium Phosphorus Magnesium Direct Bilirubin AST ALT Alkaline Phosphatase Lactate Dehydrogenase Troponin T C-Reactive Protein Total Protein Albumin Prealbumin Triglycerides Cholesterol LDL Cholesterol Direct HDL Cholesterol 25-OH Vitamin D Total PTH Intact Urine pH Urine WBC (Auto) Urine Creatinine Urine Total Protein Fluid Total Protein Vancomycin Trough Rheumatoid Factor Complement C4 Miscellaneous Test Crossmatch 09/06/16 09/06/16 09/06/16 04:12 05:59 07:32 WBC RBC Hgb Hct MCV MCH MCHC RDW Plt Count Lymph % (Auto) [place] % (Auto) Lymph # [place] # Baso # Seg Neutrophils % Seg Neuts % (Manual) Lymphocytes % (Manual) Monocytes % (Manual) Eosinophils % (Manual) Basophils % (Manual) Nucleated RBC % Seg Neutrophils # Seg Neutrophils # Man Lymphocytes # (Manual) Monocytes # (Manual) Eosinophils # (Manual) Basophils # (Manual) PT INR Fibrinogen dRVVT Confirm Interp Factor V Activity POC ABG pH 7.514 H POC ABG pCO2 29.1 L POC ABG pO2 72 L ABG pO2 ABG HCO3 ABG Base Excess ABG Hemoglobin Oxyhemoglobin Sodium 133 L Potassium 3.4 L Chloride 94.9 L Carbon Dioxide 19 L BUN 30 H Creatinine 2.1 H Glucose 139 H POC Glucose 146 H Lactic Acid Calcium Ionized Calcium Phosphorus Magnesium Direct Bilirubin AST ALT Alkaline Phosphatase Lactate Dehydrogenase Troponin T C-Reactive Protein Total Protein Albumin Prealbumin Triglycerides Cholesterol LDL Cholesterol Direct HDL Cholesterol 25-OH Vitamin D Total PTH Intact Urine pH Urine WBC (Auto) Urine Creatinine Urine Total Protein Fluid Total Protein Vancomycin Trough Rheumatoid Factor Complement C4 Miscellaneous Test Crossmatch 09/06/16 09/06/16 09/06/16 11:57 17:58 19:02 WBC RBC Hgb Hct MCV MCH MCHC RDW Plt Count Lymph % (Auto) [place] % (Auto) Lymph # [place] # Baso # Seg Neutrophils % Seg Neuts % (Manual) Lymphocytes % (Manual) Monocytes % (Manual) Eosinophils % (Manual) Basophils % (Manual) Nucleated RBC % Seg Neutrophils # Seg Neutrophils # Man Lymphocytes # (Manual) Monocytes # (Manual) Eosinophils # (Manual) Basophils # (Manual) PT INR Fibrinogen dRVVT Confirm Interp Factor V Activity POC ABG pH 7.465 H POC ABG pCO2 32.0 L POC ABG pO2 ABG pO2 ABG HCO3 ABG Base Excess ABG Hemoglobin Oxyhemoglobin Sodium Potassium Chloride Carbon Dioxide BUN Creatinine Glucose POC Glucose 165 H 160 H Lactic Acid Calcium Ionized Calcium Phosphorus Magnesium Direct Bilirubin AST ALT Alkaline Phosphatase Lactate Dehydrogenase Troponin T C-Reactive Protein Total Protein Albumin Prealbumin Triglycerides Cholesterol LDL Cholesterol Direct HDL Cholesterol 25-OH Vitamin D Total PTH Intact Urine pH Urine WBC (Auto) Urine Creatinine Urine Total Protein Fluid Total Protein Vancomycin Trough Rheumatoid Factor Complement C4 Miscellaneous Test Crossmatch 09/06/16 09/07/16 09/07/16 23:45 02:47 02:47 WBC RBC Hgb Hct MCV MCH MCHC RDW Plt Count Lymph % (Auto) [place] % (Auto) Lymph # [place] # Baso # Seg Neutrophils % Seg Neuts % (Manual) Lymphocytes % (Manual) Monocytes % (Manual) Eosinophils % (Manual) Basophils % (Manual) Nucleated RBC % Seg Neutrophils # Seg Neutrophils # Man Lymphocytes # (Manual) Monocytes # (Manual) Eosinophils # (Manual) Basophils # (Manual) PT INR Fibrinogen dRVVT Confirm Interp Factor V Activity POC ABG pH POC ABG pCO2 POC ABG pO2 ABG pO2 ABG HCO3 ABG Base Excess ABG Hemoglobin Oxyhemoglobin Sodium Potassium Chloride Carbon Dioxide BUN Creatinine Glucose POC Glucose 204 H Lactic Acid Calcium Ionized Calcium Phosphorus Magnesium Direct Bilirubin AST ALT Alkaline Phosphatase Lactate Dehydrogenase Troponin T C-Reactive Protein Total Protein Albumin Prealbumin Triglycerides Cholesterol LDL Cholesterol Direct HDL Cholesterol 25-OH Vitamin D Total PTH Intact Urine pH Urine WBC (Auto) 68.0 H Urine Creatinine 106.1 H Urine Total Protein Fluid Total Protein Vancomycin Trough Rheumatoid Factor Complement C4 Miscellaneous Test Crossmatch 09/07/16 09/07/16 09/07/16 04:50 06:19 06:39 WBC RBC Hgb Hct MCV MCH MCHC RDW Plt Count Lymph % (Auto) [place] % (Auto) Lymph # [place] # Baso # Seg Neutrophils % Seg Neuts % (Manual) Lymphocytes % (Manual) Monocytes % (Manual) Eosinophils % (Manual) Basophils % (Manual) Nucleated RBC % Seg Neutrophils # Seg Neutrophils # Man Lymphocytes # (Manual) Monocytes # (Manual) Eosinophils # (Manual) Basophils # (Manual) PT INR Fibrinogen dRVVT Confirm Interp Factor V Activity POC ABG pH 7.457 H POC ABG pCO2 32.1 L POC ABG pO2 76 L ABG pO2 ABG HCO3 ABG Base Excess ABG Hemoglobin Oxyhemoglobin Sodium 132 L Potassium Chloride 94.7 L Carbon Dioxide BUN 53 H Creatinine 2.9 H Glucose 151 H POC Glucose 149 H Lactic Acid Calcium Ionized Calcium Phosphorus Magnesium Direct Bilirubin AST ALT Alkaline Phosphatase Lactate Dehydrogenase Troponin T C-Reactive Protein Total Protein Albumin Prealbumin Triglycerides Cholesterol LDL Cholesterol Direct HDL Cholesterol 25-OH Vitamin D Total PTH Intact Urine pH Urine WBC (Auto) Urine Creatinine Urine Total Protein Fluid Total Protein Vancomycin Trough Rheumatoid Factor Complement C4 Miscellaneous Test Crossmatch 09/07/16 09/07/16 09/07/16 09:20 11:43 11:43 WBC 19.4 H RBC Hgb 8.3 L Hct 26.4 L D MCV 72 L D MCH 22 L MCHC RDW 17.9 H Plt Count Lymph % (Auto) 8.5 L [place] % (Auto) Lymph # [place] # 1.0 H Baso # Seg Neutrophils % 85.8 H Seg Neuts % (Manual) Lymphocytes % (Manual) Monocytes % (Manual) Eosinophils % (Manual) Basophils % (Manual) Nucleated RBC % Seg Neutrophils # 16.6 H Seg Neutrophils # Man Lymphocytes # (Manual) Monocytes # (Manual) Eosinophils # (Manual) Basophils # (Manual) PT INR Fibrinogen dRVVT Confirm Interp Factor V Activity POC ABG pH POC ABG pCO2 POC ABG pO2 ABG pO2 ABG HCO3 ABG Base Excess ABG Hemoglobin Oxyhemoglobin Sodium 134 L Potassium Chloride 97.2 L Carbon Dioxide 20 L BUN 58 H Creatinine 2.9 H Glucose 147 H POC Glucose Lactic Acid Calcium Ionized Calcium Phosphorus 2.40 L Magnesium 2.40 H Direct Bilirubin AST ALT Alkaline Phosphatase Lactate Dehydrogenase Troponin T C-Reactive Protein Total Protein 5.8 L Albumin 2.2 L Prealbumin Triglycerides Cholesterol LDL Cholesterol Direct HDL Cholesterol 25-OH Vitamin D Total PTH Intact Urine pH Urine WBC (Auto) Urine Creatinine Urine Total Protein Fluid Total Protein Vancomycin Trough Rheumatoid Factor Complement C4 58 H Miscellaneous Test Crossmatch 09/07/16 09/07/16 09/07/16 11:50 16:00 17:31 WBC RBC Hgb Hct MCV MCH MCHC RDW Plt Count Lymph % (Auto) [place] % (Auto) Lymph # [place] # Baso # Seg Neutrophils % Seg Neuts % (Manual) Lymphocytes % (Manual) Monocytes % (Manual) Eosinophils % (Manual) Basophils % (Manual) Nucleated RBC % Seg Neutrophils # Seg Neutrophils # Man Lymphocytes # (Manual) Monocytes # (Manual) Eosinophils # (Manual) Basophils # (Manual) PT INR Fibrinogen dRVVT Confirm Interp Factor V Activity POC ABG pH POC ABG pCO2 POC ABG pO2 158 H ABG pO2 ABG HCO3 ABG Base Excess ABG Hemoglobin Oxyhemoglobin Sodium Potassium Chloride Carbon Dioxide BUN Creatinine Glucose POC Glucose 175 H Lactic Acid Calcium Ionized Calcium Phosphorus Magnesium Direct Bilirubin AST ALT Alkaline Phosphatase Lactate Dehydrogenase Troponin T C-Reactive Protein Total Protein Albumin Prealbumin Triglycerides Cholesterol LDL Cholesterol Direct HDL Cholesterol 25-OH Vitamin D Total PTH Intact Urine pH Urine WBC (Auto) Urine Creatinine 66.3 H Urine Total Protein Fluid Total Protein Vancomycin Trough Rheumatoid Factor Complement C4 Miscellaneous Test Crossmatch 09/07/16 09/08/16 09/08/16 23:50 05:46 06:18 WBC 17.8 H RBC 3.58 L Hgb 8.1 L Hct 25.5 L MCV 71 L MCH 23 L MCHC RDW 18.4 H Plt Count Lymph % (Auto) [place] % (Auto) Lymph # [place] # Baso # Seg Neutrophils % Seg Neuts % (Manual) 92.0 H Lymphocytes % (Manual) 6.0 L Monocytes % (Manual) Eosinophils % (Manual) Basophils % (Manual) Nucleated RBC % Seg Neutrophils # Seg Neutrophils # Man 16.4 H Lymphocytes # (Manual) 1.1 L Monocytes # (Manual) Eosinophils # (Manual) Basophils # (Manual) PT INR Fibrinogen dRVVT Confirm Interp Factor V Activity POC ABG pH POC ABG pCO2 34.3 L POC ABG pO2 71 L ABG pO2 ABG HCO3 ABG Base Excess ABG Hemoglobin Oxyhemoglobin Sodium Potassium Chloride Carbon Dioxide BUN Creatinine Glucose POC Glucose 216 H Lactic Acid Calcium Ionized Calcium Phosphorus Magnesium Direct Bilirubin AST ALT Alkaline Phosphatase Lactate Dehydrogenase Troponin T C-Reactive Protein Total Protein Albumin Prealbumin Triglycerides Cholesterol LDL Cholesterol Direct HDL Cholesterol 25-OH Vitamin D Total PTH Intact Urine pH Urine WBC (Auto) Urine Creatinine Urine Total Protein Fluid Total Protein Vancomycin Trough Rheumatoid Factor Complement C4 Miscellaneous Test Crossmatch 07/09/08/16 09/08/16 06:18 06:51 10:55 WBC RBC Hgb Hct MCV MCH MCHC RDW Plt Count Lymph % (Auto) [place] % (Auto) Lymph # [place] # Baso # Seg Neutrophils % Seg Neuts % (Manual) Lymphocytes % (Manual) Monocytes % (Manual) Eosinophils % (Manual) Basophils % (Manual) Nucleated RBC % Seg Neutrophils # Seg Neutrophils # Man Lymphocytes # (Manual) Monocytes # (Manual) Eosinophils # (Manual) Basophils # (Manual) PT INR Fibrinogen dRVVT Confirm Interp Factor V Activity POC ABG pH POC ABG pCO2 POC ABG pO2 ABG pO2 ABG HCO3 ABG Base Excess ABG Hemoglobin Oxyhemoglobin Sodium 133 L Potassium Chloride 96.9 L Carbon Dioxide 20 L BUN 63 H Creatinine 2.7 H Glucose 195 H POC Glucose 204 H 169 H Lactic Acid Calcium Ionized Calcium Phosphorus Magnesium Direct Bilirubin AST ALT Alkaline Phosphatase Lactate Dehydrogenase Troponin T C-Reactive Protein Total Protein Albumin Prealbumin Triglycerides Cholesterol LDL Cholesterol Direct HDL Cholesterol 25-OH Vitamin D Total PTH Intact Urine pH Urine WBC (Auto) Urine Creatinine Urine Total Protein Fluid Total Protein Vancomycin Trough Rheumatoid Factor Complement C4 Miscellaneous Test Crossmatch 09/08/16 09/08/16 09/08/16 11:48 11:48 11:48 WBC RBC Hgb Hct MCV MCH MCHC RDW Plt Count Lymph % (Auto) [place] % (Auto) Lymph # [place] # Baso # Seg Neutrophils % Seg Neuts % (Manual) Lymphocytes % (Manual) Monocytes % (Manual) Eosinophils % (Manual) Basophils % (Manual) Nucleated RBC % Seg Neutrophils # Seg Neutrophils # Man Lymphocytes # (Manual) Monocytes # (Manual) Eosinophils # (Manual) Basophils # (Manual) PT INR Fibrinogen 750 H dRVVT Confirm Interp Factor V Activity POC ABG pH POC ABG pCO2 POC ABG pO2 ABG pO2 ABG HCO3 ABG Base Excess ABG Hemoglobin Oxyhemoglobin Sodium Potassium Chloride Carbon Dioxide BUN Creatinine Glucose POC Glucose Lactic Acid Calcium Ionized Calcium Phosphorus Magnesium Direct Bilirubin AST ALT Alkaline Phosphatase Lactate Dehydrogenase Troponin T C-Reactive Protein 15.70 H Total Protein Albumin Prealbumin Triglycerides Cholesterol LDL Cholesterol Direct HDL Cholesterol 25-OH Vitamin D Total PTH Intact Urine pH Urine WBC (Auto) Urine Creatinine Urine Total Protein Fluid Total Protein Vancomycin Trough Rheumatoid Factor 24 H Complement C4 Miscellaneous Test Crossmatch 09/08/16 09/08/16 09/09/16 15:35 18:25 00:24 WBC RBC Hgb Hct MCV MCH MCHC RDW Plt Count Lymph % (Auto) [place] % (Auto) Lymph # [place] # Baso # Seg Neutrophils % Seg Neuts % (Manual) Lymphocytes % (Manual) Monocytes % (Manual) Eosinophils % (Manual) Basophils % (Manual) Nucleated RBC % Seg Neutrophils # Seg Neutrophils # Man Lymphocytes # (Manual) Monocytes # (Manual) Eosinophils # (Manual) Basophils # (Manual) PT INR Fibrinogen dRVVT Confirm Interp Factor V Activity 182 H POC ABG pH POC ABG pCO2 POC ABG pO2 ABG pO2 ABG HCO3 ABG Base Excess ABG Hemoglobin Oxyhemoglobin Sodium Potassium Chloride Carbon Dioxide BUN Creatinine Glucose POC Glucose 184 H 216 H Lactic Acid Calcium Ionized Calcium Phosphorus Magnesium Direct Bilirubin AST ALT Alkaline Phosphatase Lactate Dehydrogenase Troponin T C-Reactive Protein Total Protein Albumin Prealbumin Triglycerides Cholesterol LDL Cholesterol Direct HDL Cholesterol 25-OH Vitamin D Total PTH Intact Urine pH Urine WBC (Auto) Urine Creatinine Urine Total Protein Fluid Total Protein Vancomycin Trough Rheumatoid Factor Complement C4 Miscellaneous Test Crossmatch 09/09/16 09/09/16 09/09/16 03:00 03:00 04:04 WBC 27.9 H RBC Hgb 8.7 L Hct 28.1 L MCV 72 L MCH 22 L MCHC RDW 18.4 H Plt Count 485 H Lymph % (Auto) [place] % (Auto) Lymph # [place] # Baso # Seg Neutrophils % Seg Neuts % (Manual) 77.0 H Lymphocytes % (Manual) 9.0 L Monocytes % (Manual) Eosinophils % (Manual) Basophils % (Manual) Nucleated RBC % Seg Neutrophils # Seg Neutrophils # Man 21.5 H Lymphocytes # (Manual) Monocytes # (Manual) 2.0 H Eosinophils # (Manual) Basophils # (Manual) PT INR Fibrinogen dRVVT Confirm Interp Factor V Activity POC ABG pH POC ABG pCO2 POC ABG pO2 121 H ABG pO2 ABG HCO3 ABG Base Excess ABG Hemoglobin Oxyhemoglobin Sodium 135 L Potassium Chloride 96.3 L Carbon Dioxide 21 L BUN 83 H Creatinine 3.0 H Glucose 135 H POC Glucose Lactic Acid Calcium Ionized Calcium Phosphorus Magnesium Direct Bilirubin AST ALT Alkaline Phosphatase Lactate Dehydrogenase Troponin T C-Reactive Protein Total Protein Albumin Prealbumin Triglycerides Cholesterol LDL Cholesterol Direct HDL Cholesterol 25-OH Vitamin D Total PTH Intact Urine pH Urine WBC (Auto) Urine Creatinine Urine Total Protein Fluid Total Protein Vancomycin Trough Rheumatoid Factor Complement C4 Miscellaneous Test Crossmatch 09/09/16 09/09/16 09/09/16 05:41 11:55 14:13 WBC RBC Hgb Hct MCV MCH MCHC RDW Plt Count Lymph % (Auto) [place] % (Auto) Lymph # [place] # Baso # Seg Neutrophils % Seg Neuts % (Manual) Lymphocytes % (Manual) Monocytes % (Manual) Eosinophils % (Manual) Basophils % (Manual) Nucleated RBC % Seg Neutrophils # Seg Neutrophils # Man Lymphocytes # (Manual) Monocytes # (Manual) Eosinophils # (Manual) Basophils # (Manual) PT INR Fibrinogen dRVVT Confirm Interp Factor V Activity POC ABG pH POC ABG pCO2 POC ABG pO2 ABG pO2 ABG HCO3 ABG Base Excess ABG Hemoglobin Oxyhemoglobin Sodium Potassium Chloride Carbon Dioxide BUN Creatinine Glucose POC Glucose 155 H 186 H Lactic Acid Calcium Ionized Calcium Phosphorus Magnesium Direct Bilirubin AST ALT Alkaline Phosphatase Lactate Dehydrogenase Troponin T C-Reactive Protein Total Protein Albumin Prealbumin Triglycerides Cholesterol LDL Cholesterol Direct HDL Cholesterol 25-OH Vitamin D Total PTH Intact Urine pH Urine WBC (Auto) 25.0 H Urine Creatinine Urine Total Protein Fluid Total Protein Vancomycin Trough Rheumatoid Factor Complement C4 Miscellaneous Test Crossmatch 09/09/16 09/09/16 09/10/16 17:33 23:13 05:09 WBC RBC Hgb Hct MCV MCH MCHC RDW Plt Count Lymph % (Auto) [place] % (Auto) Lymph # [place] # Baso # Seg Neutrophils % Seg Neuts % (Manual) Lymphocytes % (Manual) Monocytes % (Manual) Eosinophils % (Manual) Basophils % (Manual) Nucleated RBC % Seg Neutrophils # Seg Neutrophils # Man Lymphocytes # (Manual) Monocytes # (Manual) Eosinophils # (Manual) Basophils # (Manual) PT INR Fibrinogen dRVVT Confirm Interp Factor V Activity POC ABG pH POC ABG pCO2 POC ABG pO2 74 L ABG pO2 ABG HCO3 ABG Base Excess ABG Hemoglobin Oxyhemoglobin Sodium Potassium Chloride Carbon Dioxide BUN Creatinine Glucose POC Glucose 211 H 215 H Lactic Acid Calcium Ionized Calcium Phosphorus Magnesium Direct Bilirubin AST ALT Alkaline Phosphatase Lactate Dehydrogenase Troponin T C-Reactive Protein Total Protein Albumin Prealbumin Triglycerides Cholesterol LDL Cholesterol Direct HDL Cholesterol 25-OH Vitamin D Total PTH Intact Urine pH Urine WBC (Auto) Urine Creatinine Urine Total Protein Fluid Total Protein Vancomycin Trough Rheumatoid Factor Complement C4 Miscellaneous Test Crossmatch 09/10/16 09/10/16 09/10/16 05:17 05:17 11:31 WBC 15.8 H RBC 3.25 L Hgb 7.3 L Hct 22.9 L MCV 71 L MCH 23 L MCHC RDW 18.4 H Plt Count Lymph % (Auto) [place] % (Auto) Lymph # [place] # Baso # Seg Neutrophils % Seg Neuts % (Manual) 91.0 H Lymphocytes % (Manual) 4.0 L Monocytes % (Manual) Eosinophils % (Manual) Basophils % (Manual) Nucleated RBC % Seg Neutrophils # Seg Neutrophils # Man 14.4 H Lymphocytes # (Manual) 0.6 L Monocytes # (Manual) Eosinophils # (Manual) Basophils # (Manual) PT INR Fibrinogen dRVVT Confirm Interp Factor V Activity POC ABG pH POC ABG pCO2 POC ABG pO2 ABG pO2 ABG HCO3 ABG Base Excess ABG Hemoglobin Oxyhemoglobin Sodium Potassium Chloride Carbon Dioxide 21 L BUN 93 H Creatinine 2.9 H Glucose 146 H POC Glucose 188 H Lactic Acid Calcium 8.1 L Ionized Calcium Phosphorus Magnesium Direct Bilirubin AST ALT Alkaline Phosphatase Lactate Dehydrogenase Troponin T C-Reactive Protein Total Protein Albumin Prealbumin Triglycerides Cholesterol LDL Cholesterol Direct HDL Cholesterol 25-OH Vitamin D Total PTH Intact Urine pH Urine WBC (Auto) Urine Creatinine Urine Total Protein Fluid Total Protein Vancomycin Trough Rheumatoid Factor Complement C4 Miscellaneous Test Crossmatch 09/10/16 09/10/16 09/10/16 13:17 17:20 23:32 WBC RBC Hgb Hct MCV MCH MCHC RDW Plt Count Lymph % (Auto) [place] % (Auto) Lymph # [place] # Baso # Seg Neutrophils % Seg Neuts % (Manual) Lymphocytes % (Manual) Monocytes % (Manual) Eosinophils % (Manual) Basophils % (Manual) Nucleated RBC % Seg Neutrophils # Seg Neutrophils # Man Lymphocytes # (Manual) Monocytes # (Manual) Eosinophils # (Manual) Basophils # (Manual) PT INR Fibrinogen dRVVT Confirm Interp Factor V Activity POC ABG pH POC ABG pCO2 POC ABG pO2 ABG pO2 ABG HCO3 ABG Base Excess ABG Hemoglobin Oxyhemoglobin Sodium Potassium Chloride Carbon Dioxide BUN Creatinine Glucose POC Glucose 199 H 186 H Lactic Acid Calcium Ionized Calcium Phosphorus Magnesium Direct Bilirubin AST ALT Alkaline Phosphatase Lactate Dehydrogenase Troponin T C-Reactive Protein Total Protein Albumin Prealbumin Triglycerides Cholesterol LDL Cholesterol Direct HDL Cholesterol 25-OH Vitamin D Total PTH Intact Urine pH Urine WBC (Auto) Urine Creatinine Urine Total Protein Fluid Total Protein Vancomycin Trough Rheumatoid Factor Complement C4 Miscellaneous Test Crossmatch See Detail 09/11/16 09/11/16 09/11/16 05:10 05:10 05:17 WBC 28.4 H RBC Hgb 9.2 L Hct 29.3 L D MCV 73 L MCH 23 L MCHC RDW 18.9 H Plt Count 452 H Lymph % (Auto) [place] % (Auto) Lymph # [place] # Baso # Seg Neutrophils % Seg Neuts % (Manual) 89.5 H Lymphocytes % (Manual) 2.0 L Monocytes % (Manual) Eosinophils % (Manual) Basophils % (Manual) Nucleated RBC % Seg Neutrophils # Seg Neutrophils # Man 25.4 H Lymphocytes # (Manual) 0.6 L Monocytes # (Manual) 1.3 H Eosinophils # (Manual) Basophils # (Manual) PT INR Fibrinogen dRVVT Confirm Interp Factor V Activity POC ABG pH POC ABG pCO2 POC ABG pO2 ABG pO2 ABG HCO3 ABG Base Excess ABG Hemoglobin Oxyhemoglobin Sodium 136 L Potassium Chloride Carbon Dioxide 18 L BUN 107 H Creatinine 2.6 H Glucose 187 H POC Glucose 230 H Lactic Acid Calcium 8.3 L Ionized Calcium Phosphorus Magnesium Direct Bilirubin AST ALT Alkaline Phosphatase Lactate Dehydrogenase Troponin T C-Reactive Protein Total Protein Albumin Prealbumin Triglycerides Cholesterol LDL Cholesterol Direct HDL Cholesterol 25-OH Vitamin D Total PTH Intact Urine pH Urine WBC (Auto) Urine Creatinine Urine Total Protein Fluid Total Protein Vancomycin Trough Rheumatoid Factor Complement C4 Miscellaneous Test Crossmatch 09/11/16 09/11/16 09/11/16 05:55 12:02 17:32 WBC RBC Hgb Hct MCV MCH MCHC RDW Plt Count Lymph % (Auto) [place] % (Auto) Lymph # [place] # Baso # Seg Neutrophils % Seg Neuts % (Manual) Lymphocytes % (Manual) Monocytes % (Manual) Eosinophils % (Manual) Basophils % (Manual) Nucleated RBC % Seg Neutrophils # Seg Neutrophils # Man Lymphocytes # (Manual) Monocytes # (Manual) Eosinophils # (Manual) Basophils # (Manual) PT INR Fibrinogen dRVVT Confirm Interp Factor V Activity POC ABG pH POC ABG pCO2 33.8 L POC ABG pO2 ABG pO2 ABG HCO3 ABG Base Excess ABG Hemoglobin Oxyhemoglobin Sodium Potassium Chloride Carbon Dioxide BUN Creatinine Glucose POC Glucose 191 H 239 H Lactic Acid Calcium Ionized Calcium Phosphorus Magnesium Direct Bilirubin AST ALT Alkaline Phosphatase Lactate Dehydrogenase Troponin T C-Reactive Protein Total Protein Albumin Prealbumin Triglycerides Cholesterol LDL Cholesterol Direct HDL Cholesterol 25-OH Vitamin D Total PTH Intact Urine pH Urine WBC (Auto) Urine Creatinine Urine Total Protein Fluid Total Protein Vancomycin Trough Rheumatoid Factor Complement C4 Miscellaneous Test Crossmatch 09/11/16 09/12/16 09/12/16 23:52 05:09 05:32 WBC RBC Hgb Hct MCV MCH MCHC RDW Plt Count Lymph % (Auto) [place] % (Auto) Lymph # [place] # Baso # Seg Neutrophils % Seg Neuts % (Manual) Lymphocytes % (Manual) Monocytes % (Manual) Eosinophils % (Manual) Basophils % (Manual) Nucleated RBC % Seg Neutrophils # Seg Neutrophils # Man Lymphocytes # (Manual) Monocytes # (Manual) Eosinophils # (Manual) Basophils # (Manual) PT INR Fibrinogen dRVVT Confirm Interp Factor V Activity POC ABG pH POC ABG pCO2 34.6 L POC ABG pO2 ABG pO2 ABG HCO3 ABG Base Excess ABG Hemoglobin Oxyhemoglobin Sodium Potassium Chloride Carbon Dioxide BUN Creatinine Glucose POC Glucose 265 H 184 H Lactic Acid Calcium Ionized Calcium Phosphorus Magnesium Direct Bilirubin AST ALT Alkaline Phosphatase Lactate Dehydrogenase Troponin T C-Reactive Protein Total Protein Albumin Prealbumin Triglycerides Cholesterol LDL Cholesterol Direct HDL Cholesterol 25-OH Vitamin D Total PTH Intact Urine pH Urine WBC (Auto) Urine Creatinine Urine Total Protein Fluid Total Protein Vancomycin Trough Rheumatoid Factor Complement C4 Miscellaneous Test Crossmatch 09/12/16 09/12/16 09/12/16 06:45 06:45 07:22 WBC 31.7 H RBC 3.54 L Hgb 8.3 L Hct 25.9 L MCV 73 L MCH 23 L MCHC RDW 18.9 H Plt Count Lymph % (Auto) [place] % (Auto) Lymph # [place] # Baso # Seg Neutrophils % Seg Neuts % (Manual) 88.5 H Lymphocytes % (Manual) 4.5 L Monocytes % (Manual) Eosinophils % (Manual) Basophils % (Manual) Nucleated RBC % Seg Neutrophils # Seg Neutrophils # Man 28.1 H Lymphocytes # (Manual) Monocytes # (Manual) 1.0 H Eosinophils # (Manual) Basophils # (Manual) PT INR Fibrinogen dRVVT Confirm Interp Factor V Activity POC ABG pH POC ABG pCO2 POC ABG pO2 ABG pO2 ABG HCO3 ABG Base Excess ABG Hemoglobin Oxyhemoglobin Sodium Potassium Chloride Carbon Dioxide 20 L BUN 115 H Creatinine 2.7 H Glucose 165 H POC Glucose Lactic Acid Calcium 8.0 L Ionized Calcium Phosphorus Magnesium Direct Bilirubin AST ALT Alkaline Phosphatase Lactate Dehydrogenase Troponin T C-Reactive Protein Total Protein Albumin Prealbumin Triglycerides 217 H Cholesterol LDL Cholesterol Direct HDL Cholesterol 25-OH Vitamin D Total PTH Intact Urine pH Urine WBC (Auto) Urine Creatinine Urine Total Protein Fluid Total Protein Vancomycin Trough Rheumatoid Factor Complement C4 Miscellaneous Test Crossmatch 09/12/16 09/12/16 09/12/16 07:22 09:59 12:21 WBC RBC Hgb Hct MCV MCH MCHC RDW Plt Count Lymph % (Auto) [place] % (Auto) Lymph # [place] # Baso # Seg Neutrophils % Seg Neuts % (Manual) Lymphocytes % (Manual) Monocytes % (Manual) Eosinophils % (Manual) Basophils % (Manual) Nucleated RBC % Seg Neutrophils # Seg Neutrophils # Man Lymphocytes # (Manual) Monocytes # (Manual) Eosinophils # (Manual) Basophils # (Manual) PT INR Fibrinogen dRVVT Confirm Interp Positive H Factor V Activity POC ABG pH POC ABG pCO2 POC ABG pO2 ABG pO2 ABG HCO3 ABG Base Excess ABG Hemoglobin Oxyhemoglobin Sodium Potassium Chloride Carbon Dioxide BUN Creatinine Glucose POC Glucose 224 H Lactic Acid Calcium Ionized Calcium Phosphorus Magnesium Direct Bilirubin AST ALT Alkaline Phosphatase Lactate Dehydrogenase Troponin T C-Reactive Protein 1.70 H Total Protein Albumin Prealbumin Triglycerides Cholesterol LDL Cholesterol Direct HDL Cholesterol 25-OH Vitamin D Total PTH Intact Urine pH Urine WBC (Auto) Urine Creatinine Urine Total Protein Fluid Total Protein Vancomycin Trough Rheumatoid Factor Complement C4 Miscellaneous Test Crossmatch 09/12/16 09/12/16 09/13/16 16:51 23:28 04:00 WBC 45.0 H* RBC Hgb 9.4 L Hct MCV 75 L MCH 23 L MCHC RDW 19.0 H Plt Count 470 H Lymph % (Auto) [place] % (Auto) Lymph # [place] # Baso # Seg Neutrophils % Seg Neuts % (Manual) 89.0 H Lymphocytes % (Manual) 5.0 L Monocytes % (Manual) Eosinophils % (Manual) Basophils % (Manual) Nucleated RBC % Seg Neutrophils # Seg Neutrophils # Man 40.1 H Lymphocytes # (Manual) Monocytes # (Manual) Eosinophils # (Manual) Basophils # (Manual) PT INR Fibrinogen dRVVT Confirm Interp Factor V Activity POC ABG pH POC ABG pCO2 POC ABG pO2 ABG pO2 ABG HCO3 ABG Base Excess ABG Hemoglobin Oxyhemoglobin Sodium Potassium Chloride Carbon Dioxide BUN Creatinine Glucose POC Glucose 169 H 150 H Lactic Acid Calcium Ionized Calcium Phosphorus Magnesium Direct Bilirubin AST ALT Alkaline Phosphatase Lactate Dehydrogenase Troponin T C-Reactive Protein Total Protein Albumin Prealbumin Triglycerides Cholesterol LDL Cholesterol Direct HDL Cholesterol 25-OH Vitamin D Total PTH Intact Urine pH Urine WBC (Auto) Urine Creatinine Urine Total Protein Fluid Total Protein Vancomycin Trough Rheumatoid Factor Complement C4 Miscellaneous Test Crossmatch 09/13/16 09/13/16 09/13/16 04:00 11:26 17:31 WBC RBC Hgb Hct MCV MCH MCHC RDW Plt Count Lymph % (Auto) [place] % (Auto) Lymph # [place] # Baso # Seg Neutrophils % Seg Neuts % (Manual) Lymphocytes % (Manual) Monocytes % (Manual) Eosinophils % (Manual) Basophils % (Manual) Nucleated RBC % Seg Neutrophils # Seg Neutrophils # Man Lymphocytes # (Manual) Monocytes # (Manual) Eosinophils # (Manual) Basophils # (Manual) PT INR Fibrinogen dRVVT Confirm Interp Factor V Activity POC ABG pH POC ABG pCO2 POC ABG pO2 ABG pO2 ABG HCO3 ABG Base Excess ABG Hemoglobin Oxyhemoglobin Sodium Potassium Chloride Carbon Dioxide 20 L BUN 116 H Creatinine 3.0 H Glucose 172 H POC Glucose 140 H 183 H Lactic Acid Calcium Ionized Calcium Phosphorus Magnesium Direct Bilirubin AST ALT Alkaline Phosphatase Lactate Dehydrogenase Troponin T C-Reactive Protein Total Protein 6.2 L Albumin 2.9 L Prealbumin Triglycerides Cholesterol LDL Cholesterol Direct HDL Cholesterol 25-OH Vitamin D Total PTH Intact Urine pH Urine WBC (Auto) Urine Creatinine Urine Total Protein Fluid Total Protein Vancomycin Trough Rheumatoid Factor Complement C4 Miscellaneous Test Crossmatch 09/13/16 09/14/16 09/14/16 23:23 04:06 04:07 WBC 29.4 H RBC Hgb 8.9 L Hct 27.3 L MCV 75 L MCH 24 L MCHC RDW 19.1 H Plt Count Lymph % (Auto) [place] % (Auto) Lymph # [place] # Baso # Seg Neutrophils % Seg Neuts % (Manual) 84.0 H Lymphocytes % (Manual) 6.0 L Monocytes % (Manual) 9.0 H Eosinophils % (Manual) Basophils % (Manual) Nucleated RBC % Seg Neutrophils # Seg Neutrophils # Man 24.7 H Lymphocytes # (Manual) Monocytes # (Manual) 2.6 H Eosinophils # (Manual) Basophils # (Manual) PT INR Fibrinogen dRVVT Confirm Interp Factor V Activity POC ABG pH 7.342 L POC ABG pCO2 POC ABG pO2 116 H ABG pO2 ABG HCO3 ABG Base Excess ABG Hemoglobin Oxyhemoglobin Sodium Potassium Chloride Carbon Dioxide BUN Creatinine Glucose POC Glucose 154 H Lactic Acid Calcium Ionized Calcium Phosphorus Magnesium Direct Bilirubin AST ALT Alkaline Phosphatase Lactate Dehydrogenase Troponin T C-Reactive Protein Total Protein Albumin Prealbumin Triglycerides Cholesterol LDL Cholesterol Direct HDL Cholesterol 25-OH Vitamin D Total PTH Intact Urine pH Urine WBC (Auto) Urine Creatinine Urine Total Protein Fluid Total Protein Vancomycin Trough Rheumatoid Factor Complement C4 Miscellaneous Test Crossmatch 09/14/16 09/14/16 09/14/16 04:07 05:29 12:19 WBC RBC Hgb Hct MCV MCH MCHC RDW Plt Count Lymph % (Auto) [place] % (Auto) Lymph # [place] # Baso # Seg Neutrophils % Seg Neuts % (Manual) Lymphocytes % (Manual) Monocytes % (Manual) Eosinophils % (Manual) Basophils % (Manual) Nucleated RBC % Seg Neutrophils # Seg Neutrophils # Man Lymphocytes # (Manual) Monocytes # (Manual) Eosinophils # (Manual) Basophils # (Manual) PT INR Fibrinogen dRVVT Confirm Interp Factor V Activity POC ABG pH POC ABG pCO2 POC ABG pO2 ABG pO2 ABG HCO3 ABG Base Excess ABG Hemoglobin Oxyhemoglobin Sodium 136 L Potassium Chloride Carbon Dioxide 18 L BUN 121 H Creatinine 2.8 H Glucose 214 H POC Glucose 239 H 181 H Lactic Acid Calcium Ionized Calcium Phosphorus Magnesium Direct Bilirubin AST ALT Alkaline Phosphatase Lactate Dehydrogenase Troponin T C-Reactive Protein Total Protein Albumin Prealbumin Triglycerides Cholesterol LDL Cholesterol Direct HDL Cholesterol 25-OH Vitamin D Total PTH Intact Urine pH Urine WBC (Auto) Urine Creatinine Urine Total Protein Fluid Total Protein Vancomycin Trough Rheumatoid Factor Complement C4 Miscellaneous Test Crossmatch 09/14/16 09/14/16 09/15/16 18:12 23:37 05:00 WBC 26.1 H RBC 3.05 L Hgb 7.2 L Hct 22.9 L MCV 75 L MCH 24 L MCHC RDW 19.0 H Plt Count Lymph % (Auto) [place] % (Auto) Lymph # [place] # Baso # Seg Neutrophils % Seg Neuts % (Manual) Lymphocytes % (Manual) Monocytes % (Manual) Eosinophils % (Manual) Basophils % (Manual) Nucleated RBC % Seg Neutrophils # Seg Neutrophils # Man Lymphocytes # (Manual) Monocytes # (Manual) Eosinophils # (Manual) Basophils # (Manual) PT INR Fibrinogen dRVVT Confirm Interp Factor V Activity POC ABG pH POC ABG pCO2 POC ABG pO2 ABG pO2 ABG HCO3 ABG Base Excess ABG Hemoglobin Oxyhemoglobin Sodium Potassium Chloride Carbon Dioxide BUN Creatinine Glucose POC Glucose 266 H 154 H Lactic Acid Calcium Ionized Calcium Phosphorus Magnesium Direct Bilirubin AST ALT Alkaline Phosphatase Lactate Dehydrogenase Troponin T C-Reactive Protein Total Protein Albumin Prealbumin Triglycerides Cholesterol LDL Cholesterol Direct HDL Cholesterol 25-OH Vitamin D Total PTH Intact Urine pH Urine WBC (Auto) Urine Creatinine Urine Total Protein Fluid Total Protein Vancomycin Trough Rheumatoid Factor Complement C4 Miscellaneous Test Crossmatch 09/15/16 09/15/16 09/15/16 05:00 05:17 12:45 WBC RBC Hgb Hct MCV MCH MCHC RDW Plt Count Lymph % (Auto) [place] % (Auto) Lymph # [place] # Baso # Seg Neutrophils % Seg Neuts % (Manual) Lymphocytes % (Manual) Monocytes % (Manual) Eosinophils % (Manual) Basophils % (Manual) Nucleated RBC % Seg Neutrophils # Seg Neutrophils # Man Lymphocytes # (Manual) Monocytes # (Manual) Eosinophils # (Manual) Basophils # (Manual) PT INR Fibrinogen dRVVT Confirm Interp Factor V Activity POC ABG pH POC ABG pCO2 POC ABG pO2 ABG pO2 ABG HCO3 ABG Base Excess ABG Hemoglobin Oxyhemoglobin Sodium Potassium 5.2 H Chloride Carbon Dioxide 18 L BUN 139 H Creatinine 3.7 H Glucose 227 H POC Glucose 226 H 244 H Lactic Acid Calcium 8.3 L Ionized Calcium Phosphorus Magnesium Direct Bilirubin AST ALT Alkaline Phosphatase Lactate Dehydrogenase Troponin T C-Reactive Protein Total Protein Albumin Prealbumin Triglycerides Cholesterol LDL Cholesterol Direct HDL Cholesterol 25-OH Vitamin D Total PTH Intact Urine pH Urine WBC (Auto) Urine Creatinine Urine Total Protein Fluid Total Protein Vancomycin Trough Rheumatoid Factor Complement C4 Miscellaneous Test Crossmatch 09/15/16 09/15/16 09/15/16 14:32 17:33 23:35 WBC RBC Hgb Hct MCV MCH MCHC RDW Plt Count Lymph % (Auto) [place] % (Auto) Lymph # [place] # Baso # Seg Neutrophils % Seg Neuts % (Manual) Lymphocytes % (Manual) Monocytes % (Manual) Eosinophils % (Manual) Basophils % (Manual) Nucleated RBC % Seg Neutrophils # Seg Neutrophils # Man Lymphocytes # (Manual) Monocytes # (Manual) Eosinophils # (Manual) Basophils # (Manual) PT INR Fibrinogen dRVVT Confirm Interp Factor V Activity POC ABG pH POC ABG pCO2 27.7 L POC ABG pO2 120 H ABG pO2 ABG HCO3 ABG Base Excess ABG Hemoglobin Oxyhemoglobin Sodium Potassium Chloride Carbon Dioxide BUN Creatinine Glucose POC Glucose 232 H 167 H Lactic Acid Calcium Ionized Calcium Phosphorus Magnesium Direct Bilirubin AST ALT Alkaline Phosphatase Lactate Dehydrogenase Troponin T C-Reactive Protein Total Protein Albumin Prealbumin Triglycerides Cholesterol LDL Cholesterol Direct HDL Cholesterol 25-OH Vitamin D Total PTH Intact Urine pH Urine WBC (Auto) Urine Creatinine Urine Total Protein Fluid Total Protein Vancomycin Trough Rheumatoid Factor Complement C4 Miscellaneous Test Crossmatch 09/16/16 09/16/16 09/16/16 03:58 10:27 10:27 WBC 19.0 H RBC 2.77 L Hgb 6.5 L Hct 20.9 L MCV 76 L MCH 23 L MCHC RDW 19.3 H Plt Count Lymph % (Auto) 11.0 L [place] % (Auto) Lymph # [place] # 1.1 H Baso # Seg Neutrophils % 82.5 H Seg Neuts % (Manual) Lymphocytes % (Manual) Monocytes % (Manual) Eosinophils % (Manual) Basophils % (Manual) Nucleated RBC % Seg Neutrophils # 15.7 H Seg Neutrophils # Man Lymphocytes # (Manual) Monocytes # (Manual) Eosinophils # (Manual) Basophils # (Manual) PT INR Fibrinogen dRVVT Confirm Interp Factor V Activity POC ABG pH POC ABG pCO2 POC ABG pO2 ABG pO2 ABG HCO3 ABG Base Excess ABG Hemoglobin Oxyhemoglobin Sodium Potassium Chloride 109.3 H Carbon Dioxide 18 L BUN 139 H Creatinine 4.1 H Glucose 144 H POC Glucose 146 H Lactic Acid Calcium 8.1 L Ionized Calcium Phosphorus Magnesium Direct Bilirubin AST ALT Alkaline Phosphatase Lactate Dehydrogenase Troponin T C-Reactive Protein Total Protein Albumin Prealbumin Triglycerides Cholesterol LDL Cholesterol Direct HDL Cholesterol 25-OH Vitamin D Total PTH Intact Urine pH Urine WBC (Auto) Urine Creatinine Urine Total Protein Fluid Total Protein Vancomycin Trough Rheumatoid Factor Complement C4 Miscellaneous Test Crossmatch 09/16/16 09/16/16 09/16/16 12:04 12:10 13:55 WBC RBC Hgb Hct MCV MCH MCHC RDW Plt Count Lymph % (Auto) [place] % (Auto) Lymph # [place] # Baso # Seg Neutrophils % Seg Neuts % (Manual) Lymphocytes % (Manual) Monocytes % (Manual) Eosinophils % (Manual) Basophils % (Manual) Nucleated RBC % Seg Neutrophils # Seg Neutrophils # Man Lymphocytes # (Manual) Monocytes # (Manual) Eosinophils # (Manual) Basophils # (Manual) PT INR Fibrinogen dRVVT Confirm Interp Factor V Activity POC ABG pH POC ABG pCO2 32.9 L POC ABG pO2 ABG pO2 ABG HCO3 ABG Base Excess ABG Hemoglobin Oxyhemoglobin Sodium Potassium Chloride Carbon Dioxide BUN Creatinine Glucose POC Glucose 185 H Lactic Acid Calcium Ionized Calcium Phosphorus Magnesium Direct Bilirubin AST ALT Alkaline Phosphatase Lactate Dehydrogenase Troponin T C-Reactive Protein Total Protein Albumin Prealbumin Triglycerides Cholesterol LDL Cholesterol Direct HDL Cholesterol 25-OH Vitamin D Total PTH Intact Urine pH Urine WBC (Auto) Urine Creatinine Urine Total Protein Fluid Total Protein Vancomycin Trough Rheumatoid Factor Complement C4 Miscellaneous Test Crossmatch See Detail 09/16/16 09/16/16 09/16/16 17:55 19:19 23:48 WBC RBC Hgb Hct MCV MCH MCHC RDW Plt Count Lymph % (Auto) [place] % (Auto) Lymph # [place] # Baso # Seg Neutrophils % Seg Neuts % (Manual) Lymphocytes % (Manual) Monocytes % (Manual) Eosinophils % (Manual) Basophils % (Manual) Nucleated RBC % Seg Neutrophils # Seg Neutrophils # Man Lymphocytes # (Manual) Monocytes # (Manual) Eosinophils # (Manual) Basophils # (Manual) PT INR Fibrinogen dRVVT Confirm Interp Factor V Activity POC ABG pH POC ABG pCO2 POC ABG pO2 ABG pO2 ABG HCO3 ABG Base Excess ABG Hemoglobin Oxyhemoglobin Sodium Potassium Chloride Carbon Dioxide BUN Creatinine Glucose POC Glucose 222 H 107 H Lactic Acid Calcium Ionized Calcium Phosphorus Magnesium Direct Bilirubin AST ALT Alkaline Phosphatase Lactate Dehydrogenase Troponin T C-Reactive Protein Total Protein Albumin Prealbumin Triglycerides Cholesterol LDL Cholesterol Direct HDL Cholesterol 25-OH Vitamin D Total PTH Intact Urine pH Urine WBC (Auto) Urine Creatinine 47.4 H Urine Total Protein 16 H Fluid Total Protein Vancomycin Trough Rheumatoid Factor Complement C4 Miscellaneous Test Crossmatch 09/17/16 09/17/16 09/17/16 03:45 03:45 04:55 WBC 19.6 H RBC 3.41 L Hgb 8.5 L Hct 26.7 L MCV 78 L MCH 25 L MCHC RDW 19.9 H Plt Count Lymph % (Auto) 9.3 L [place] % (Auto) Lymph # [place] # 1.2 H Baso # Seg Neutrophils % 83.9 H Seg Neuts % (Manual) Lymphocytes % (Manual) Monocytes % (Manual) Eosinophils % (Manual) Basophils % (Manual) Nucleated RBC % Seg Neutrophils # 16.4 H Seg Neutrophils # Man Lymphocytes # (Manual) Monocytes # (Manual) Eosinophils # (Manual) Basophils # (Manual) PT INR Fibrinogen dRVVT Confirm Interp Factor V Activity POC ABG pH POC ABG pCO2 POC ABG pO2 ABG pO2 ABG HCO3 ABG Base Excess ABG Hemoglobin Oxyhemoglobin Sodium 146 H Potassium 5.1 H Chloride 110.9 H Carbon Dioxide 16 L BUN 146 H Creatinine 4.0 H Glucose 108 H POC Glucose 133 H Lactic Acid Calcium Ionized Calcium Phosphorus Magnesium 3.00 H Direct Bilirubin AST ALT Alkaline Phosphatase Lactate Dehydrogenase Troponin T C-Reactive Protein Total Protein Albumin Prealbumin Triglycerides Cholesterol LDL Cholesterol Direct HDL Cholesterol 25-OH Vitamin D Total PTH Intact Urine pH Urine WBC (Auto) Urine Creatinine Urine Total Protein Fluid Total Protein Vancomycin Trough Rheumatoid Factor Complement C4 Miscellaneous Test Crossmatch 09/17/16 09/17/16 09/17/16 11:15 17:33 23:47 WBC RBC Hgb Hct MCV MCH MCHC RDW Plt Count Lymph % (Auto) [place] % (Auto) Lymph # [place] # Baso # Seg Neutrophils % Seg Neuts % (Manual) Lymphocytes % (Manual) Monocytes % (Manual) Eosinophils % (Manual) Basophils % (Manual) Nucleated RBC % Seg Neutrophils # Seg Neutrophils # Man Lymphocytes # (Manual) Monocytes # (Manual) Eosinophils # (Manual) Basophils # (Manual) PT INR Fibrinogen dRVVT Confirm Interp Factor V Activity POC ABG pH POC ABG pCO2 POC ABG pO2 ABG pO2 ABG HCO3 ABG Base Excess ABG Hemoglobin Oxyhemoglobin Sodium Potassium Chloride Carbon Dioxide BUN Creatinine Glucose POC Glucose 176 H 246 H 148 H Lactic Acid Calcium Ionized Calcium Phosphorus Magnesium Direct Bilirubin AST ALT Alkaline Phosphatase Lactate Dehydrogenase Troponin T C-Reactive Protein Total Protein Albumin Prealbumin Triglycerides Cholesterol LDL Cholesterol Direct HDL Cholesterol 25-OH Vitamin D Total PTH Intact Urine pH Urine WBC (Auto) Urine Creatinine Urine Total Protein Fluid Total Protein Vancomycin Trough Rheumatoid Factor Complement C4 Miscellaneous Test Crossmatch 09/18/16 09/18/16 09/18/16 05:33 08:31 08:31 WBC 18.0 H RBC 3.17 L Hgb 9.0 L Hct 25.7 L MCV MCH MCHC 35 H RDW 20.4 H Plt Count Lymph % (Auto) [place] % (Auto) Lymph # [place] # Baso # Seg Neutrophils % Seg Neuts % (Manual) Lymphocytes % (Manual) Monocytes % (Manual) Eosinophils % (Manual) Basophils % (Manual) Nucleated RBC % Seg Neutrophils # Seg Neutrophils # Man Lymphocytes # (Manual) Monocytes # (Manual) Eosinophils # (Manual) Basophils # (Manual) PT INR Fibrinogen dRVVT Confirm Interp Factor V Activity POC ABG pH POC ABG pCO2 POC ABG pO2 ABG pO2 ABG HCO3 ABG Base Excess ABG Hemoglobin Oxyhemoglobin Sodium Potassium Chloride Carbon Dioxide 15 L BUN 124 H Creatinine 3.8 H Glucose POC Glucose 120 H Lactic Acid Calcium 8.1 L Ionized Calcium Phosphorus Magnesium Direct Bilirubin AST ALT Alkaline Phosphatase Lactate Dehydrogenase Troponin T C-Reactive Protein Total Protein Albumin Prealbumin Triglycerides Cholesterol LDL Cholesterol Direct HDL Cholesterol 25-OH Vitamin D Total PTH Intact Urine pH Urine WBC (Auto) Urine Creatinine Urine Total Protein Fluid Total Protein Vancomycin Trough Rheumatoid Factor Complement C4 Miscellaneous Test Crossmatch 09/18/16 09/18/16 09/18/16 12:03 15:34 17:50 WBC RBC Hgb Hct MCV MCH MCHC RDW Plt Count Lymph % (Auto) [place] % (Auto) Lymph # [place] # Baso # Seg Neutrophils % Seg Neuts % (Manual) Lymphocytes % (Manual) Monocytes % (Manual) Eosinophils % (Manual) Basophils % (Manual) Nucleated RBC % Seg Neutrophils # Seg Neutrophils # Man Lymphocytes # (Manual) Monocytes # (Manual) Eosinophils # (Manual) Basophils # (Manual) PT INR Fibrinogen dRVVT Confirm Interp Factor V Activity POC ABG pH POC ABG pCO2 25.7 L POC ABG pO2 66 L ABG pO2 ABG HCO3 ABG Base Excess ABG Hemoglobin Oxyhemoglobin Sodium Potassium Chloride Carbon Dioxide BUN Creatinine Glucose POC Glucose 156 H 220 H Lactic Acid Calcium Ionized Calcium Phosphorus Magnesium Direct Bilirubin AST ALT Alkaline Phosphatase Lactate Dehydrogenase Troponin T C-Reactive Protein Total Protein Albumin Prealbumin Triglycerides Cholesterol LDL Cholesterol Direct HDL Cholesterol 25-OH Vitamin D Total PTH Intact Urine pH Urine WBC (Auto) Urine Creatinine Urine Total Protein Fluid Total Protein Vancomycin Trough Rheumatoid Factor Complement C4 Miscellaneous Test Crossmatch 09/19/16 09/19/16 09/19/16 06:21 09:50 09:50 WBC 17.1 H RBC 3.49 L Hgb 9.0 L Hct 28.1 L MCV MCH 26 L MCHC RDW 20.8 H Plt Count Lymph % (Auto) 11.5 L [place] % (Auto) 7.5 H Lymph # [place] # 1.3 H Baso # Seg Neutrophils % 79.8 H Seg Neuts % (Manual) Lymphocytes % (Manual) Monocytes % (Manual) Eosinophils % (Manual) Basophils % (Manual) Nucleated RBC % Seg Neutrophils # 13.7 H Seg Neutrophils # Man Lymphocytes # (Manual) Monocytes # (Manual) Eosinophils # (Manual) Basophils # (Manual) PT INR Fibrinogen dRVVT Confirm Interp Factor V Activity POC ABG pH POC ABG pCO2 POC ABG pO2 ABG pO2 ABG HCO3 ABG Base Excess ABG Hemoglobin Oxyhemoglobin Sodium Potassium Chloride 108.6 H Carbon Dioxide 15 L BUN 125 H Creatinine 4.1 H Glucose 124 H POC Glucose 119 H Lactic Acid Calcium Ionized Calcium Phosphorus Magnesium Direct Bilirubin AST ALT Alkaline Phosphatase Lactate Dehydrogenase Troponin T C-Reactive Protein Total Protein Albumin Prealbumin Triglycerides Cholesterol LDL Cholesterol Direct HDL Cholesterol 25-OH Vitamin D Total PTH Intact Urine pH Urine WBC (Auto) Urine Creatinine Urine Total Protein Fluid Total Protein Vancomycin Trough Rheumatoid Factor Complement C4 Miscellaneous Test Crossmatch 09/19/16 09/19/16 09/19/16 11:25 17:53 23:36 WBC RBC Hgb Hct MCV MCH MCHC RDW Plt Count Lymph % (Auto) [place] % (Auto) Lymph # [place] # Baso # Seg Neutrophils % Seg Neuts % (Manual) Lymphocytes % (Manual) Monocytes % (Manual) Eosinophils % (Manual) Basophils % (Manual) Nucleated RBC % Seg Neutrophils # Seg Neutrophils # Man Lymphocytes # (Manual) Monocytes # (Manual) Eosinophils # (Manual) Basophils # (Manual) PT INR Fibrinogen dRVVT Confirm Interp Factor V Activity POC ABG pH POC ABG pCO2 POC ABG pO2 ABG pO2 ABG HCO3 ABG Base Excess ABG Hemoglobin Oxyhemoglobin Sodium Potassium Chloride Carbon Dioxide BUN Creatinine Glucose POC Glucose 160 H 245 H 121 H Lactic Acid Calcium Ionized Calcium Phosphorus Magnesium Direct Bilirubin AST ALT Alkaline Phosphatase Lactate Dehydrogenase Troponin T C-Reactive Protein Total Protein Albumin Prealbumin Triglycerides Cholesterol LDL Cholesterol Direct HDL Cholesterol 25-OH Vitamin D Total PTH Intact Urine pH Urine WBC (Auto) Urine Creatinine Urine Total Protein Fluid Total Protein Vancomycin Trough Rheumatoid Factor Complement C4 Miscellaneous Test Crossmatch 09/20/16 09/20/16 09/20/16 04:10 04:10 04:10 WBC 17.0 H RBC 3.21 L Hgb 8.2 L Hct 25.5 L MCV MCH 26 L MCHC RDW 20.9 H Plt Count Lymph % (Auto) [place] % (Auto) Lymph # [place] # Baso # Seg Neutrophils % Seg Neuts % (Manual) Lymphocytes % (Manual) Monocytes % (Manual) Eosinophils % (Manual) Basophils % (Manual) Nucleated RBC % Seg Neutrophils # Seg Neutrophils # Man Lymphocytes # (Manual) Monocytes # (Manual) Eosinophils # (Manual) Basophils # (Manual) PT INR Fibrinogen dRVVT Confirm Interp Factor V Activity POC ABG pH POC ABG pCO2 POC ABG pO2 ABG pO2 ABG HCO3 ABG Base Excess ABG Hemoglobin Oxyhemoglobin Sodium Potassium Chloride 111.0 H Carbon Dioxide 16 L BUN 129 H Creatinine 3.7 H Glucose 115 H POC Glucose Lactic Acid Calcium 8.2 L Ionized Calcium Phosphorus Magnesium Direct Bilirubin AST ALT Alkaline Phosphatase Lactate Dehydrogenase Troponin T C-Reactive Protein Total Protein Albumin Prealbumin Triglycerides 243 H Cholesterol LDL Cholesterol Direct HDL Cholesterol 25-OH Vitamin D Total PTH Intact Urine pH Urine WBC (Auto) Urine Creatinine Urine Total Protein Fluid Total Protein Vancomycin Trough Rheumatoid Factor Complement C4 Miscellaneous Test Crossmatch 09/20/16 09/20/16 09/20/16 05:40 11:52 16:50 WBC RBC Hgb Hct MCV MCH MCHC RDW Plt Count Lymph % (Auto) [place] % (Auto) Lymph # [place] # Baso # Seg Neutrophils % Seg Neuts % (Manual) Lymphocytes % (Manual) Monocytes % (Manual) Eosinophils % (Manual) Basophils % (Manual) Nucleated RBC % Seg Neutrophils # Seg Neutrophils # Man Lymphocytes # (Manual) Monocytes # (Manual) Eosinophils # (Manual) Basophils # (Manual) PT INR Fibrinogen dRVVT Confirm Interp Factor V Activity POC ABG pH POC ABG pCO2 POC ABG pO2 ABG pO2 ABG HCO3 ABG Base Excess ABG Hemoglobin Oxyhemoglobin Sodium Potassium Chloride Carbon Dioxide BUN Creatinine Glucose POC Glucose 131 H 183 H 236 H Lactic Acid Calcium Ionized Calcium Phosphorus Magnesium Direct Bilirubin AST ALT Alkaline Phosphatase Lactate Dehydrogenase Troponin T C-Reactive Protein Total Protein Albumin Prealbumin Triglycerides Cholesterol LDL Cholesterol Direct HDL Cholesterol 25-OH Vitamin D Total PTH Intact Urine pH Urine WBC (Auto) Urine Creatinine Urine Total Protein Fluid Total Protein Vancomycin Trough Rheumatoid Factor Complement C4 Miscellaneous Test Crossmatch 09/20/16 09/21/16 09/21/16 23:51 03:30 04:44 WBC RBC Hgb Hct MCV MCH MCHC RDW Plt Count Lymph % (Auto) [place] % (Auto) Lymph # [place] # Baso # Seg Neutrophils % Seg Neuts % (Manual) Lymphocytes % (Manual) Monocytes % (Manual) Eosinophils % (Manual) Basophils % (Manual) Nucleated RBC % Seg Neutrophils # Seg Neutrophils # Man Lymphocytes # (Manual) Monocytes # (Manual) Eosinophils # (Manual) Basophils # (Manual) PT INR Fibrinogen dRVVT Confirm Interp Factor V Activity POC ABG pH POC ABG pCO2 POC ABG pO2 ABG pO2 ABG HCO3 ABG Base Excess ABG Hemoglobin Oxyhemoglobin Sodium Potassium Chloride Carbon Dioxide BUN Creatinine Glucose POC Glucose 114 H 141 H Lactic Acid Calcium Ionized Calcium Phosphorus Magnesium 2.70 H Direct Bilirubin AST ALT Alkaline Phosphatase Lactate Dehydrogenase Troponin T C-Reactive Protein Total Protein Albumin Prealbumin Triglycerides Cholesterol LDL Cholesterol Direct HDL Cholesterol 25-OH Vitamin D Total PTH Intact Urine pH Urine WBC (Auto) Urine Creatinine Urine Total Protein Fluid Total Protein Vancomycin Trough Rheumatoid Factor Complement C4 Miscellaneous Test Crossmatch 09/21/16 09/21/16 09/21/16 07:45 07:45 10:01 WBC 13.8 H RBC 2.94 L Hgb 7.5 L Hct 23.5 L MCV MCH 26 L MCHC RDW 21.2 H Plt Count Lymph % (Auto) 6.9 L [place] % (Auto) 9.4 H Lymph # 0.9 L [place] # 1.3 H Baso # Seg Neutrophils % 83.2 H Seg Neuts % (Manual) Lymphocytes % (Manual) Monocytes % (Manual) Eosinophils % (Manual) Basophils % (Manual) Nucleated RBC % Seg Neutrophils # 11.5 H Seg Neutrophils # Man Lymphocytes # (Manual) Monocytes # (Manual) Eosinophils # (Manual) Basophils # (Manual) PT INR Fibrinogen dRVVT Confirm Interp Factor V Activity POC ABG pH 7.308 L POC ABG pCO2 31.9 L POC ABG pO2 148 H ABG pO2 ABG HCO3 ABG Base Excess ABG Hemoglobin Oxyhemoglobin Sodium 147 H Potassium Chloride 114.2 H Carbon Dioxide 15 L BUN 120 H Creatinine 3.9 H Glucose 156 H POC Glucose Lactic Acid Calcium 8.2 L Ionized Calcium Phosphorus Magnesium Direct Bilirubin AST ALT Alkaline Phosphatase Lactate Dehydrogenase Troponin T C-Reactive Protein Total Protein Albumin Prealbumin Triglycerides Cholesterol LDL Cholesterol Direct HDL Cholesterol 25-OH Vitamin D Total PTH Intact Urine pH Urine WBC (Auto) Urine Creatinine Urine Total Protein Fluid Total Protein Vancomycin Trough Rheumatoid Factor Complement C4 Miscellaneous Test Crossmatch 09/21/16 09/21/16 09/21/16 12:00 12:03 13:00 WBC RBC Hgb Hct MCV MCH MCHC RDW Plt Count Lymph % (Auto) [place] % (Auto) Lymph # [place] # Baso # Seg Neutrophils % Seg Neuts % (Manual) Lymphocytes % (Manual) Monocytes % (Manual) Eosinophils % (Manual) Basophils % (Manual) Nucleated RBC % Seg Neutrophils # Seg Neutrophils # Man Lymphocytes # (Manual) Monocytes # (Manual) Eosinophils # (Manual) Basophils # (Manual) PT INR Fibrinogen dRVVT Confirm Interp Factor V Activity POC ABG pH POC ABG pCO2 POC ABG pO2 ABG pO2 ABG HCO3 ABG Base Excess ABG Hemoglobin Oxyhemoglobin Sodium Potassium Chloride Carbon Dioxide BUN Creatinine Glucose POC Glucose 163 H Lactic Acid Calcium Ionized Calcium Phosphorus Magnesium Direct Bilirubin AST ALT Alkaline Phosphatase Lactate Dehydrogenase Troponin T C-Reactive Protein Total Protein Albumin Prealbumin Triglycerides Cholesterol LDL Cholesterol Direct HDL Cholesterol 25-OH Vitamin D Total PTH Intact Urine pH Urine WBC (Auto) Urine Creatinine 54.8 H Urine Total Protein Fluid Total Protein Vancomycin Trough 2.3 L Rheumatoid Factor Complement C4 Miscellaneous Test Crossmatch 09/21/16 09/21/16 09/22/16 16:51 23:17 06:27 WBC RBC Hgb Hct MCV MCH MCHC RDW Plt Count Lymph % (Auto) [place] % (Auto) Lymph # [place] # Baso # Seg Neutrophils % Seg Neuts % (Manual) Lymphocytes % (Manual) Monocytes % (Manual) Eosinophils % (Manual) Basophils % (Manual) Nucleated RBC % Seg Neutrophils # Seg Neutrophils # Man Lymphocytes # (Manual) Monocytes # (Manual) Eosinophils # (Manual) Basophils # (Manual) PT INR Fibrinogen dRVVT Confirm Interp Factor V Activity POC ABG pH POC ABG pCO2 POC ABG pO2 ABG pO2 ABG HCO3 ABG Base Excess ABG Hemoglobin Oxyhemoglobin Sodium Potassium Chloride Carbon Dioxide BUN Creatinine Glucose POC Glucose 206 H 114 H 115 H Lactic Acid Calcium Ionized Calcium Phosphorus Magnesium Direct Bilirubin AST ALT Alkaline Phosphatase Lactate Dehydrogenase Troponin T C-Reactive Protein Total Protein Albumin Prealbumin Triglycerides Cholesterol LDL Cholesterol Direct HDL Cholesterol 25-OH Vitamin D Total PTH Intact Urine pH Urine WBC (Auto) Urine Creatinine Urine Total Protein Fluid Total Protein Vancomycin Trough Rheumatoid Factor Complement C4 Miscellaneous Test Crossmatch 09/22/16 09/22/16 09/22/16 07:50 07:50 12:00 WBC 17.8 H RBC 3.04 L Hgb 8.0 L Hct 24.7 L MCV MCH 26 L MCHC RDW 21.6 H Plt Count Lymph % (Auto) [place] % (Auto) Lymph # [place] # Baso # Seg Neutrophils % Seg Neuts % (Manual) Lymphocytes % (Manual) Monocytes % (Manual) Eosinophils % (Manual) Basophils % (Manual) Nucleated RBC % Seg Neutrophils # Seg Neutrophils # Man Lymphocytes # (Manual) Monocytes # (Manual) Eosinophils # (Manual) Basophils # (Manual) PT INR Fibrinogen dRVVT Confirm Interp Factor V Activity POC ABG pH POC ABG pCO2 POC ABG pO2 ABG pO2 ABG HCO3 ABG Base Excess ABG Hemoglobin Oxyhemoglobin Sodium 150 H Potassium Chloride 118.2 H Carbon Dioxide 14 L BUN 111 H Creatinine 3.7 H Glucose 157 H POC Glucose 183 H Lactic Acid Calcium Ionized Calcium Phosphorus Magnesium Direct Bilirubin AST ALT Alkaline Phosphatase Lactate Dehydrogenase Troponin T C-Reactive Protein Total Protein Albumin Prealbumin Triglycerides Cholesterol LDL Cholesterol Direct HDL Cholesterol 25-OH Vitamin D Total PTH Intact Urine pH Urine WBC (Auto) Urine Creatinine Urine Total Protein Fluid Total Protein Vancomycin Trough Rheumatoid Factor Complement C4 Miscellaneous Test Crossmatch 09/22/16 09/22/16 09/23/16 17:29 23:10 05:00 WBC 19.2 H RBC 3.13 L Hgb 8.0 L Hct 25.2 L MCV MCH 26 L MCHC RDW 22.1 H Plt Count Lymph % (Auto) [place] % (Auto) Lymph # [place] # Baso # Seg Neutrophils % Seg Neuts % (Manual) 92.0 H Lymphocytes % (Manual) 3.0 L Monocytes % (Manual) Eosinophils % (Manual) Basophils % (Manual) Nucleated RBC % Seg Neutrophils # Seg Neutrophils # Man 17.7 H Lymphocytes # (Manual) 0.6 L Monocytes # (Manual) Eosinophils # (Manual) Basophils # (Manual) PT INR Fibrinogen dRVVT Confirm Interp Factor V Activity POC ABG pH POC ABG pCO2 POC ABG pO2 ABG pO2 ABG HCO3 ABG Base Excess ABG Hemoglobin Oxyhemoglobin Sodium Potassium Chloride Carbon Dioxide BUN Creatinine Glucose POC Glucose 197 H 169 H Lactic Acid Calcium Ionized Calcium Phosphorus Magnesium Direct Bilirubin AST ALT Alkaline Phosphatase Lactate Dehydrogenase Troponin T C-Reactive Protein Total Protein Albumin Prealbumin Triglycerides Cholesterol LDL Cholesterol Direct HDL Cholesterol 25-OH Vitamin D Total PTH Intact Urine pH Urine WBC (Auto) Urine Creatinine Urine Total Protein Fluid Total Protein Vancomycin Trough Rheumatoid Factor Complement C4 Miscellaneous Test Crossmatch 09/23/16 09/23/16 09/23/16 05:00 05:00 05:10 WBC RBC Hgb Hct MCV MCH MCHC RDW Plt Count Lymph % (Auto) [place] % (Auto) Lymph # [place] # Baso # Seg Neutrophils % Seg Neuts % (Manual) Lymphocytes % (Manual) Monocytes % (Manual) Eosinophils % (Manual) Basophils % (Manual) Nucleated RBC % Seg Neutrophils # Seg Neutrophils # Man Lymphocytes # (Manual) Monocytes # (Manual) Eosinophils # (Manual) Basophils # (Manual) PT INR Fibrinogen dRVVT Confirm Interp Factor V Activity POC ABG pH POC ABG pCO2 POC ABG pO2 ABG pO2 ABG HCO3 ABG Base Excess ABG Hemoglobin Oxyhemoglobin Sodium 147 H Potassium 3.2 L Chloride 115.7 H Carbon Dioxide 13 L BUN 111 H Creatinine 3.8 H Glucose 194 H POC Glucose 188 H Lactic Acid Calcium 7.3 L D Ionized Calcium Phosphorus Magnesium Direct Bilirubin AST ALT Alkaline Phosphatase Lactate Dehydrogenase Troponin T C-Reactive Protein 3.20 H Total Protein Albumin Prealbumin Triglycerides Cholesterol LDL Cholesterol Direct HDL Cholesterol 25-OH Vitamin D Total PTH Intact Urine pH Urine WBC (Auto) Urine Creatinine Urine Total Protein Fluid Total Protein Vancomycin Trough Rheumatoid Factor Complement C4 Miscellaneous Test Crossmatch 09/23/16 09/23/16 09/23/16 11:37 12:29 18:01 WBC RBC Hgb Hct MCV MCH MCHC RDW Plt Count Lymph % (Auto) [place] % (Auto) Lymph # [place] # Baso # Seg Neutrophils % Seg Neuts % (Manual) Lymphocytes % (Manual) Monocytes % (Manual) Eosinophils % (Manual) Basophils % (Manual) Nucleated RBC % Seg Neutrophils # Seg Neutrophils # Man Lymphocytes # (Manual) Monocytes # (Manual) Eosinophils # (Manual) Basophils # (Manual) PT INR Fibrinogen dRVVT Confirm Interp Factor V Activity POC ABG pH POC ABG pCO2 18.9 L POC ABG pO2 143 H ABG pO2 ABG HCO3 ABG Base Excess ABG Hemoglobin Oxyhemoglobin Sodium Potassium Chloride Carbon Dioxide BUN Creatinine Glucose POC Glucose 153 H 108 H Lactic Acid Calcium Ionized Calcium Phosphorus Magnesium Direct Bilirubin AST ALT Alkaline Phosphatase Lactate Dehydrogenase Troponin T C-Reactive Protein Total Protein Albumin Prealbumin Triglycerides Cholesterol LDL Cholesterol Direct HDL Cholesterol 25-OH Vitamin D Total PTH Intact Urine pH Urine WBC (Auto) Urine Creatinine Urine Total Protein Fluid Total Protein Vancomycin Trough Rheumatoid Factor Complement C4 Miscellaneous Test Crossmatch 09/23/16 09/23/16 09/24/16 21:19 23:43 05:16 WBC RBC Hgb Hct MCV MCH MCHC RDW Plt Count Lymph % (Auto) [place] % (Auto) Lymph # [place] # Baso # Seg Neutrophils % Seg Neuts % (Manual) Lymphocytes % (Manual) Monocytes % (Manual) Eosinophils % (Manual) Basophils % (Manual) Nucleated RBC % Seg Neutrophils # Seg Neutrophils # Man Lymphocytes # (Manual) Monocytes # (Manual) Eosinophils # (Manual) Basophils # (Manual) PT INR Fibrinogen dRVVT Confirm Interp Factor V Activity POC ABG pH POC ABG pCO2 17.3 L POC ABG pO2 112 H ABG pO2 ABG HCO3 ABG Base Excess ABG Hemoglobin Oxyhemoglobin Sodium Potassium Chloride Carbon Dioxide BUN Creatinine Glucose POC Glucose 143 H 164 H Lactic Acid Calcium Ionized Calcium Phosphorus Magnesium Direct Bilirubin AST ALT Alkaline Phosphatase Lactate Dehydrogenase Troponin T C-Reactive Protein Total Protein Albumin Prealbumin Triglycerides Cholesterol LDL Cholesterol Direct HDL Cholesterol 25-OH Vitamin D Total PTH Intact Urine pH Urine WBC (Auto) Urine Creatinine Urine Total Protein Fluid Total Protein Vancomycin Trough Rheumatoid Factor Complement C4 Miscellaneous Test Crossmatch 09/24/16 09/24/16 09/24/16 05:21 11:58 17:06 WBC RBC Hgb Hct MCV MCH MCHC RDW Plt Count Lymph % (Auto) [place] % (Auto) Lymph # [place] # Baso # Seg Neutrophils % Seg Neuts % (Manual) Lymphocytes % (Manual) Monocytes % (Manual) Eosinophils % (Manual) Basophils % (Manual) Nucleated RBC % Seg Neutrophils # Seg Neutrophils # Man Lymphocytes # (Manual) Monocytes # (Manual) Eosinophils # (Manual) Basophils # (Manual) PT INR Fibrinogen dRVVT Confirm Interp Factor V Activity POC ABG pH POC ABG pCO2 POC ABG pO2 ABG pO2 ABG HCO3 ABG Base Excess ABG Hemoglobin Oxyhemoglobin Sodium Potassium Chloride Carbon Dioxide 10 L BUN 103 H Creatinine 4.3 H Glucose 163 H POC Glucose 173 H 167 H Lactic Acid Calcium 6.5 L Ionized Calcium Phosphorus Magnesium Direct Bilirubin AST ALT Alkaline Phosphatase Lactate Dehydrogenase Troponin T C-Reactive Protein Total Protein Albumin Prealbumin Triglycerides Cholesterol LDL Cholesterol Direct HDL Cholesterol 25-OH Vitamin D Total PTH Intact Urine pH Urine WBC (Auto) Urine Creatinine Urine Total Protein Fluid Total Protein Vancomycin Trough Rheumatoid Factor Complement C4 Miscellaneous Test Crossmatch 09/24/16 09/24/16 09/24/16 20:15 21:02 23:48 WBC RBC Hgb Hct MCV MCH MCHC RDW Plt Count Lymph % (Auto) [place] % (Auto) Lymph # [place] # Baso # Seg Neutrophils % Seg Neuts % (Manual) Lymphocytes % (Manual) Monocytes % (Manual) Eosinophils % (Manual) Basophils % (Manual) Nucleated RBC % Seg Neutrophils # Seg Neutrophils # Man Lymphocytes # (Manual) Monocytes # (Manual) Eosinophils # (Manual) Basophils # (Manual) PT INR Fibrinogen dRVVT Confirm Interp Factor V Activity POC ABG pH 7.288 L POC ABG pCO2 30.2 L 21.5 L POC ABG pO2 32 L 39 L ABG pO2 ABG HCO3 ABG Base Excess ABG Hemoglobin Oxyhemoglobin Sodium Potassium Chloride Carbon Dioxide BUN Creatinine Glucose POC Glucose 109 H Lactic Acid Calcium Ionized Calcium Phosphorus Magnesium Direct Bilirubin AST ALT Alkaline Phosphatase Lactate Dehydrogenase Troponin T C-Reactive Protein Total Protein Albumin Prealbumin Triglycerides Cholesterol LDL Cholesterol Direct HDL Cholesterol 25-OH Vitamin D Total PTH Intact Urine pH Urine WBC (Auto) Urine Creatinine Urine Total Protein Fluid Total Protein Vancomycin Trough Rheumatoid Factor Complement C4 Miscellaneous Test Crossmatch 09/25/16 09/25/16 09/25/16 04:20 04:20 04:20 WBC RBC 2.58 L Hgb 7.0 L Hct 21.0 L MCV MCH 27 L MCHC RDW 23.8 H Plt Count Lymph % (Auto) [place] % (Auto) Lymph # [place] # Baso # Seg Neutrophils % Seg Neuts % (Manual) Lymphocytes % (Manual) 12.0 L Monocytes % (Manual) Eosinophils % (Manual) 7.0 H Basophils % (Manual) 2.0 H Nucleated RBC % Seg Neutrophils # Seg Neutrophils # Man Lymphocytes # (Manual) 0.9 L Monocytes # (Manual) Eosinophils # (Manual) 0.5 H Basophils # (Manual) PT INR Fibrinogen dRVVT Confirm Interp Factor V Activity POC ABG pH POC ABG pCO2 POC ABG pO2 ABG pO2 ABG HCO3 ABG Base Excess ABG Hemoglobin Oxyhemoglobin Sodium Potassium Chloride Carbon Dioxide 15 L BUN 72 H Creatinine 3.8 H Glucose POC Glucose Lactic Acid Calcium 6.0 L Ionized Calcium Phosphorus 4.60 H Magnesium 1.60 L Direct Bilirubin AST ALT Alkaline Phosphatase Lactate Dehydrogenase Troponin T C-Reactive Protein Total Protein Albumin Prealbumin Triglycerides Cholesterol LDL Cholesterol Direct HDL Cholesterol 25-OH Vitamin D Total PTH Intact Urine pH Urine WBC (Auto) Urine Creatinine Urine Total Protein Fluid Total Protein Vancomycin Trough Rheumatoid Factor Complement C4 Miscellaneous Test Crossmatch 09/25/16 09/25/16 09/25/16 04:57 08:02 10:30 WBC RBC Hgb Hct MCV MCH MCHC RDW Plt Count Lymph % (Auto) [place] % (Auto) Lymph # [place] # Baso # Seg Neutrophils % Seg Neuts % (Manual) Lymphocytes % (Manual) Monocytes % (Manual) Eosinophils % (Manual) Basophils % (Manual) Nucleated RBC % Seg Neutrophils # Seg Neutrophils # Man Lymphocytes # (Manual) Monocytes # (Manual) Eosinophils # (Manual) Basophils # (Manual) PT INR Fibrinogen dRVVT Confirm Interp Factor V Activity POC ABG pH POC ABG pCO2 24.7 L POC ABG pO2 152 H ABG pO2 ABG HCO3 ABG Base Excess ABG Hemoglobin Oxyhemoglobin Sodium Potassium Chloride Carbon Dioxide BUN Creatinine Glucose POC Glucose 113 H Lactic Acid Calcium Ionized Calcium Phosphorus Magnesium Direct Bilirubin AST ALT Alkaline Phosphatase Lactate Dehydrogenase Troponin T C-Reactive Protein Total Protein Albumin Prealbumin Triglycerides Cholesterol LDL Cholesterol Direct HDL Cholesterol 25-OH Vitamin D Total PTH Intact Urine pH Urine WBC (Auto) Urine Creatinine Urine Total Protein Fluid Total Protein Vancomycin Trough Rheumatoid Factor Complement C4 Miscellaneous Test Crossmatch See Detail 09/25/16 09/25/16 09/25/16 12:05 17:44 23:47 WBC RBC Hgb Hct MCV MCH MCHC RDW Plt Count Lymph % (Auto) [place] % (Auto) Lymph # [place] # Baso # Seg Neutrophils % Seg Neuts % (Manual) Lymphocytes % (Manual) Monocytes % (Manual) Eosinophils % (Manual) Basophils % (Manual) Nucleated RBC % Seg Neutrophils # Seg Neutrophils # Man Lymphocytes # (Manual) Monocytes # (Manual) Eosinophils # (Manual) Basophils # (Manual) PT INR Fibrinogen dRVVT Confirm Interp Factor V Activity POC ABG pH POC ABG pCO2 POC ABG pO2 ABG pO2 ABG HCO3 ABG Base Excess ABG Hemoglobin Oxyhemoglobin Sodium Potassium Chloride Carbon Dioxide BUN Creatinine Glucose POC Glucose 117 H 119 H 150 H Lactic Acid Calcium Ionized Calcium Phosphorus Magnesium Direct Bilirubin AST ALT Alkaline Phosphatase Lactate Dehydrogenase Troponin T C-Reactive Protein Total Protein Albumin Prealbumin Triglycerides Cholesterol LDL Cholesterol Direct HDL Cholesterol 25-OH Vitamin D Total PTH Intact Urine pH Urine WBC (Auto) Urine Creatinine Urine Total Protein Fluid Total Protein Vancomycin Trough Rheumatoid Factor Complement C4 Miscellaneous Test Crossmatch 09/26/16 09/26/16 09/26/16 04:25 04:25 04:25 WBC RBC 2.65 L Hgb 7.4 L Hct 21.6 L MCV MCH MCHC RDW 22.5 H Plt Count Lymph % (Auto) [place] % (Auto) Lymph # [place] # Baso # Seg Neutrophils % Seg Neuts % (Manual) Lymphocytes % (Manual) 6.0 L Monocytes % (Manual) Eosinophils % (Manual) 11.0 H Basophils % (Manual) Nucleated RBC % Seg Neutrophils # Seg Neutrophils # Man Lymphocytes # (Manual) 0.4 L Monocytes # (Manual) Eosinophils # (Manual) 0.6 H Basophils # (Manual) PT INR Fibrinogen dRVVT Confirm Interp Factor V Activity POC ABG pH POC ABG pCO2 POC ABG pO2 ABG pO2 ABG HCO3 ABG Base Excess ABG Hemoglobin Oxyhemoglobin Sodium Potassium Chloride 97.0 L Carbon Dioxide 19 L BUN 43 H Creatinine 2.6 H Glucose 130 H POC Glucose Lactic Acid 4.40 H* Calcium 6.7 L Ionized Calcium Phosphorus Magnesium Direct Bilirubin AST ALT Alkaline Phosphatase Lactate Dehydrogenase Troponin T C-Reactive Protein Total Protein Albumin Prealbumin Triglycerides Cholesterol LDL Cholesterol Direct HDL Cholesterol 25-OH Vitamin D Total PTH Intact Urine pH Urine WBC (Auto) Urine Creatinine Urine Total Protein Fluid Total Protein Vancomycin Trough Rheumatoid Factor Complement C4 Miscellaneous Test Crossmatch 09/26/16 09/26/16 09/26/16 05:20 11:44 12:12 WBC RBC Hgb Hct MCV MCH MCHC RDW Plt Count Lymph % (Auto) [place] % (Auto) Lymph # [place] # Baso # Seg Neutrophils % Seg Neuts % (Manual) Lymphocytes % (Manual) Monocytes % (Manual) Eosinophils % (Manual) Basophils % (Manual) Nucleated RBC % Seg Neutrophils # Seg Neutrophils # Man Lymphocytes # (Manual) Monocytes # (Manual) Eosinophils # (Manual) Basophils # (Manual) PT INR Fibrinogen dRVVT Confirm Interp Factor V Activity POC ABG pH POC ABG pCO2 27.0 L POC ABG pO2 69 L ABG pO2 ABG HCO3 ABG Base Excess ABG Hemoglobin Oxyhemoglobin Sodium Potassium Chloride Carbon Dioxide BUN Creatinine Glucose POC Glucose 121 H 128 H Lactic Acid Calcium Ionized Calcium Phosphorus Magnesium Direct Bilirubin AST ALT Alkaline Phosphatase Lactate Dehydrogenase Troponin T C-Reactive Protein Total Protein Albumin Prealbumin Triglycerides Cholesterol LDL Cholesterol Direct HDL Cholesterol 25-OH Vitamin D Total PTH Intact Urine pH Urine WBC (Auto) Urine Creatinine Urine Total Protein Fluid Total Protein Vancomycin Trough Rheumatoid Factor Complement C4 Miscellaneous Test Crossmatch 09/26/16 09/26/16 09/27/16 18:31 23:40 08:20 WBC RBC Hgb Hct MCV MCH MCHC RDW Plt Count Lymph % (Auto) [place] % (Auto) Lymph # [place] # Baso # Seg Neutrophils % Seg Neuts % (Manual) Lymphocytes % (Manual) Monocytes % (Manual) Eosinophils % (Manual) Basophils % (Manual) Nucleated RBC % Seg Neutrophils # Seg Neutrophils # Man Lymphocytes # (Manual) Monocytes # (Manual) Eosinophils # (Manual) Basophils # (Manual) PT INR Fibrinogen dRVVT Confirm Interp Factor V Activity POC ABG pH POC ABG pCO2 POC ABG pO2 ABG pO2 ABG HCO3 ABG Base Excess ABG Hemoglobin Oxyhemoglobin Sodium Potassium Chloride Carbon Dioxide BUN Creatinine Glucose POC Glucose 120 H 133 H Lactic Acid 4.10 H* Calcium Ionized Calcium Phosphorus Magnesium Direct Bilirubin AST ALT Alkaline Phosphatase Lactate Dehydrogenase Troponin T C-Reactive Protein Total Protein Albumin Prealbumin Triglycerides Cholesterol LDL Cholesterol Direct HDL Cholesterol 25-OH Vitamin D Total PTH Intact Urine pH Urine WBC (Auto) Urine Creatinine Urine Total Protein Fluid Total Protein Vancomycin Trough Rheumatoid Factor Complement C4 Miscellaneous Test Crossmatch 09/27/16 09/27/16 09/27/16 11:23 15:00 18:15 WBC RBC Hgb Hct MCV MCH MCHC RDW Plt Count Lymph % (Auto) [place] % (Auto) Lymph # [place] # Baso # Seg Neutrophils % Seg Neuts % (Manual) Lymphocytes % (Manual) Monocytes % (Manual) Eosinophils % (Manual) Basophils % (Manual) Nucleated RBC % Seg Neutrophils # Seg Neutrophils # Man Lymphocytes # (Manual) Monocytes # (Manual) Eosinophils # (Manual) Basophils # (Manual) PT INR Fibrinogen dRVVT Confirm Interp Factor V Activity POC ABG pH 7.459 H POC ABG pCO2 27.1 L POC ABG pO2 140 H ABG pO2 ABG HCO3 ABG Base Excess ABG Hemoglobin Oxyhemoglobin Sodium Potassium Chloride Carbon Dioxide BUN Creatinine Glucose POC Glucose 114 H 127 H Lactic Acid Calcium Ionized Calcium Phosphorus Magnesium Direct Bilirubin AST ALT Alkaline Phosphatase Lactate Dehydrogenase Troponin T C-Reactive Protein Total Protein Albumin Prealbumin Triglycerides Cholesterol LDL Cholesterol Direct HDL Cholesterol 25-OH Vitamin D Total PTH Intact Urine pH Urine WBC (Auto) Urine Creatinine Urine Total Protein Fluid Total Protein Vancomycin Trough Rheumatoid Factor Complement C4 Miscellaneous Test Crossmatch 09/27/16 09/27/16 09/28/16 Unknown Unknown 03:45 WBC RBC 2.49 L Hgb 6.8 L Hct 20.7 L MCV MCH 27 L MCHC RDW 22.1 H Plt Count Lymph % (Auto) [place] % (Auto) Lymph # [place] # Baso # Seg Neutrophils % Seg Neuts % (Manual) 32.0 L Lymphocytes % (Manual) 12.0 L Monocytes % (Manual) 11.0 H Eosinophils % (Manual) 10.0 H Basophils % (Manual) Nucleated RBC % Seg Neutrophils # Seg Neutrophils # Man Lymphocytes # (Manual) 1.0 L Monocytes # (Manual) 0.9 H Eosinophils # (Manual) 0.8 H Basophils # (Manual) PT INR Fibrinogen dRVVT Confirm Interp Factor V Activity POC ABG pH POC ABG pCO2 POC ABG pO2 ABG pO2 ABG HCO3 ABG Base Excess ABG Hemoglobin Oxyhemoglobin Sodium 135 L 135 L Potassium 3.5 L Chloride 93.6 L 94.4 L Carbon Dioxide 17 L 21 L BUN 45 H 28 H Creatinine 3.3 H 2.5 H Glucose 106 H POC Glucose Lactic Acid Calcium 7.3 L 7.1 L Ionized Calcium Phosphorus Magnesium Direct Bilirubin AST ALT Alkaline Phosphatase Lactate Dehydrogenase Troponin T C-Reactive Protein Total Protein Albumin Prealbumin Triglycerides Cholesterol LDL Cholesterol Direct HDL Cholesterol 25-OH Vitamin D Total PTH Intact Urine pH Urine WBC (Auto) Urine Creatinine Urine Total Protein Fluid Total Protein Vancomycin Trough Rheumatoid Factor Complement C4 Miscellaneous Test Crossmatch 09/28/16 09/28/16 09/28/16 03:45 07:25 11:58 WBC 13.3 H RBC 3.01 L Hgb 8.4 L Hct 25.0 L MCV MCH MCHC RDW 20.5 H Plt Count 128 L Lymph % (Auto) [place] % (Auto) Lymph # [place] # Baso # Seg Neutrophils % Seg Neuts % (Manual) Lymphocytes % (Manual) 7.0 L Monocytes % (Manual) Eosinophils % (Manual) 6.0 H Basophils % (Manual) Nucleated RBC % Seg Neutrophils # Seg Neutrophils # Man Lymphocytes # (Manual) 0.9 L Monocytes # (Manual) Eosinophils # (Manual) 0.8 H Basophils # (Manual) PT INR Fibrinogen dRVVT Confirm Interp Factor V Activity POC ABG pH POC ABG pCO2 POC ABG pO2 ABG pO2 ABG HCO3 ABG Base Excess ABG Hemoglobin Oxyhemoglobin Sodium Potassium Chloride Carbon Dioxide BUN Creatinine Glucose POC Glucose 121 H Lactic Acid 4.50 H* Calcium Ionized Calcium Phosphorus Magnesium Direct Bilirubin AST ALT Alkaline Phosphatase Lactate Dehydrogenase Troponin T C-Reactive Protein Total Protein Albumin Prealbumin Triglycerides Cholesterol LDL Cholesterol Direct HDL Cholesterol 25-OH Vitamin D Total PTH Intact Urine pH Urine WBC (Auto) Urine Creatinine Urine Total Protein Fluid Total Protein Vancomycin Trough Rheumatoid Factor Complement C4 Miscellaneous Test Crossmatch 09/29/16 09/29/16 09/29/16 06:45 06:45 06:45 WBC 14.9 H RBC 2.74 L Hgb 7.6 L Hct 23.2 L MCV MCH MCHC RDW 20.5 H Plt Count 81 L Lymph % (Auto) [place] % (Auto) Lymph # [place] # Baso # Seg Neutrophils % Seg Neuts % (Manual) 81.0 H Lymphocytes % (Manual) 4.0 L Monocytes % (Manual) Eosinophils % (Manual) Basophils % (Manual) Nucleated RBC % Seg Neutrophils # Seg Neutrophils # Man 12.1 H Lymphocytes # (Manual) 0.6 L Monocytes # (Manual) Eosinophils # (Manual) Basophils # (Manual) PT INR Fibrinogen dRVVT Confirm Interp Factor V Activity POC ABG pH POC ABG pCO2 POC ABG pO2 ABG pO2 ABG HCO3 ABG Base Excess ABG Hemoglobin Oxyhemoglobin Sodium 133 L Potassium 3.4 L Chloride 92.5 L Carbon Dioxide 21 L BUN 33 H Creatinine 3.0 H Glucose POC Glucose Lactic Acid Calcium 6.6 L Ionized Calcium Phosphorus Magnesium 1.40 L Direct Bilirubin 0.9 H AST ALT Alkaline Phosphatase Lactate Dehydrogenase Troponin T C-Reactive Protein Total Protein 4.3 L Albumin 1.3 L Prealbumin Triglycerides Cholesterol LDL Cholesterol Direct HDL Cholesterol 25-OH Vitamin D Total PTH Intact Urine pH Urine WBC (Auto) Urine Creatinine Urine Total Protein Fluid Total Protein Vancomycin Trough Rheumatoid Factor Complement C4 Miscellaneous Test Crossmatch 09/29/16 09/29/16 09/30/16 17:52 20:12 00:07 WBC RBC Hgb Hct MCV MCH MCHC RDW Plt Count Lymph % (Auto) [place] % (Auto) Lymph # [place] # Baso # Seg Neutrophils % Seg Neuts % (Manual) Lymphocytes % (Manual) Monocytes % (Manual) Eosinophils % (Manual) Basophils % (Manual) Nucleated RBC % Seg Neutrophils # Seg Neutrophils # Man Lymphocytes # (Manual) Monocytes # (Manual) Eosinophils # (Manual) Basophils # (Manual) PT INR Fibrinogen dRVVT Confirm Interp Factor V Activity POC ABG pH POC ABG pCO2 POC ABG pO2 ABG pO2 ABG HCO3 ABG Base Excess ABG Hemoglobin Oxyhemoglobin Sodium Potassium Chloride Carbon Dioxide BUN Creatinine Glucose POC Glucose 50 L 51 L Lactic Acid Calcium Ionized Calcium Phosphorus Magnesium Direct Bilirubin AST ALT Alkaline Phosphatase Lactate Dehydrogenase Troponin T 0.204 H* C-Reactive Protein Total Protein Albumin Prealbumin Triglycerides Cholesterol 31 L LDL Cholesterol Direct 4 L HDL Cholesterol 3 L 25-OH Vitamin D Total PTH Intact Urine pH Urine WBC (Auto) Urine Creatinine Urine Total Protein Fluid Total Protein Vancomycin Trough Rheumatoid Factor Complement C4 Miscellaneous Test Crossmatch 09/30/16 09/30/16 09/30/16 01:30 05:15 06:10 WBC RBC Hgb Hct MCV MCH MCHC RDW Plt Count Lymph % (Auto) [place] % (Auto) Lymph # [place] # Baso # Seg Neutrophils % Seg Neuts % (Manual) Lymphocytes % (Manual) Monocytes % (Manual) Eosinophils % (Manual) Basophils % (Manual) Nucleated RBC % Seg Neutrophils # Seg Neutrophils # Man Lymphocytes # (Manual) Monocytes # (Manual) Eosinophils # (Manual) Basophils # (Manual) PT INR Fibrinogen dRVVT Confirm Interp Factor V Activity POC ABG pH POC ABG pCO2 POC ABG pO2 ABG pO2 ABG HCO3 ABG Base Excess ABG Hemoglobin Oxyhemoglobin Sodium 133 L Potassium 3.2 L Chloride 93.2 L Carbon Dioxide 19 L BUN 36 H Creatinine 3.2 H Glucose 104 H POC Glucose 167 H 146 H Lactic Acid Calcium 6.4 L Ionized Calcium Phosphorus Magnesium 1.60 L Direct Bilirubin AST ALT Alkaline Phosphatase Lactate Dehydrogenase Troponin T C-Reactive Protein Total Protein Albumin Prealbumin Triglycerides Cholesterol LDL Cholesterol Direct HDL Cholesterol 25-OH Vitamin D Total PTH Intact Urine pH Urine WBC (Auto) Urine Creatinine Urine Total Protein Fluid Total Protein Vancomycin Trough Rheumatoid Factor Complement C4 Miscellaneous Test Crossmatch 09/30/16 09/30/16 09/30/16 11:26 13:39 18:38 WBC RBC Hgb Hct MCV MCH MCHC RDW Plt Count Lymph % (Auto) [place] % (Auto) Lymph # [place] # Baso # Seg Neutrophils % Seg Neuts % (Manual) Lymphocytes % (Manual) Monocytes % (Manual) Eosinophils % (Manual) Basophils % (Manual) Nucleated RBC % Seg Neutrophils # Seg Neutrophils # Man Lymphocytes # (Manual) Monocytes # (Manual) Eosinophils # (Manual) Basophils # (Manual) PT INR Fibrinogen dRVVT Confirm Interp Factor V Activity POC ABG pH 7.479 H POC ABG pCO2 29.8 L POC ABG pO2 117 H ABG pO2 ABG HCO3 ABG Base Excess ABG Hemoglobin Oxyhemoglobin Sodium Potassium Chloride Carbon Dioxide BUN Creatinine Glucose POC Glucose 140 H 122 H Lactic Acid Calcium Ionized Calcium Phosphorus Magnesium Direct Bilirubin AST ALT Alkaline Phosphatase Lactate Dehydrogenase Troponin T C-Reactive Protein Total Protein Albumin Prealbumin Triglycerides Cholesterol LDL Cholesterol Direct HDL Cholesterol 25-OH Vitamin D Total PTH Intact Urine pH Urine WBC (Auto) Urine Creatinine Urine Total Protein Fluid Total Protein Vancomycin Trough Rheumatoid Factor Complement C4 Miscellaneous Test Crossmatch 10/01/16 10/01/16 10/01/16 06:00 06:00 12:37 WBC 12.6 H RBC 2.75 L Hgb 7.3 L Hct 23.3 L MCV MCH 27 L MCHC RDW 20.6 H Plt Count 72 L Lymph % (Auto) [place] % (Auto) Lymph # [place] # Baso # Seg Neutrophils % Seg Neuts % (Manual) 31.0 L Lymphocytes % (Manual) 8.0 L Monocytes % (Manual) Eosinophils % (Manual) Basophils % (Manual) Nucleated RBC % 3.0 H Seg Neutrophils # Seg Neutrophils # Man Lymphocytes # (Manual) 1.0 L Monocytes # (Manual) Eosinophils # (Manual) Basophils # (Manual) PT INR Fibrinogen dRVVT Confirm Interp Factor V Activity POC ABG pH POC ABG pCO2 POC ABG pO2 ABG pO2 ABG HCO3 ABG Base Excess ABG Hemoglobin Oxyhemoglobin Sodium 127 L Potassium Chloride 86.8 L Carbon Dioxide 20 L BUN 42 H Creatinine 3.5 H Glucose POC Glucose 65 L Lactic Acid Calcium 7.0 L Ionized Calcium Phosphorus Magnesium Direct Bilirubin AST ALT Alkaline Phosphatase Lactate Dehydrogenase Troponin T C-Reactive Protein Total Protein Albumin Prealbumin Triglycerides Cholesterol LDL Cholesterol Direct HDL Cholesterol 25-OH Vitamin D Total PTH Intact Urine pH Urine WBC (Auto) Urine Creatinine Urine Total Protein Fluid Total Protein Vancomycin Trough Rheumatoid Factor Complement C4 Miscellaneous Test Crossmatch 10/01/16 10/01/16 10/02/16 17:39 23:32 00:59 WBC RBC Hgb Hct MCV MCH MCHC RDW Plt Count Lymph % (Auto) [place] % (Auto) Lymph # [place] # Baso # Seg Neutrophils % Seg Neuts % (Manual) Lymphocytes % (Manual) Monocytes % (Manual) Eosinophils % (Manual) Basophils % (Manual) Nucleated RBC % Seg Neutrophils # Seg Neutrophils # Man Lymphocytes # (Manual) Monocytes # (Manual) Eosinophils # (Manual) Basophils # (Manual) PT INR Fibrinogen dRVVT Confirm Interp Factor V Activity POC ABG pH POC ABG pCO2 POC ABG pO2 ABG pO2 ABG HCO3 ABG Base Excess ABG Hemoglobin Oxyhemoglobin Sodium Potassium Chloride Carbon Dioxide BUN Creatinine Glucose POC Glucose 107 H 52 L 145 H Lactic Acid Calcium Ionized Calcium Phosphorus Magnesium Direct Bilirubin AST ALT Alkaline Phosphatase Lactate Dehydrogenase Troponin T C-Reactive Protein Total Protein Albumin Prealbumin Triglycerides Cholesterol LDL Cholesterol Direct HDL Cholesterol 25-OH Vitamin D Total PTH Intact Urine pH Urine WBC (Auto) Urine Creatinine Urine Total Protein Fluid Total Protein Vancomycin Trough Rheumatoid Factor Complement C4 Miscellaneous Test Crossmatch 10/02/16 10/02/16 10/02/16 10:30 10:50 10:50 WBC 14.7 H RBC 2.76 L Hgb 7.4 L Hct 23.6 L MCV MCH 27 L MCHC RDW 20.2 H Plt Count 79 L Lymph % (Auto) [place] % (Auto) Lymph # [place] # Baso # Seg Neutrophils % Seg Neuts % (Manual) 86.0 H Lymphocytes % (Manual) 6.0 L Monocytes % (Manual) Eosinophils % (Manual) Basophils % (Manual) Nucleated RBC % Seg Neutrophils # Seg Neutrophils # Man 12.6 H Lymphocytes # (Manual) 0.9 L Monocytes # (Manual) Eosinophils # (Manual) Basophils # (Manual) PT INR Fibrinogen dRVVT Confirm Interp Factor V Activity POC ABG pH 7.486 H POC ABG pCO2 30.1 L POC ABG pO2 108 H ABG pO2 ABG HCO3 ABG Base Excess ABG Hemoglobin Oxyhemoglobin Sodium 131 L Potassium 3.4 L Chloride 89.9 L Carbon Dioxide BUN 26 H Creatinine 2.6 H Glucose POC Glucose Lactic Acid Calcium 7.0 L Ionized Calcium Phosphorus Magnesium Direct Bilirubin AST ALT Alkaline Phosphatase Lactate Dehydrogenase Troponin T C-Reactive Protein Total Protein Albumin Prealbumin Triglycerides Cholesterol LDL Cholesterol Direct HDL Cholesterol 25-OH Vitamin D Total PTH Intact Urine pH Urine WBC (Auto) Urine Creatinine Urine Total Protein Fluid Total Protein Vancomycin Trough Rheumatoid Factor Complement C4 Miscellaneous Test Crossmatch 10/02/16 10/03/16 10/03/16 23:45 00:45 05:10 WBC 12.9 H RBC 2.77 L Hgb 7.6 L Hct 23.7 L MCV MCH 27 L MCHC RDW 19.7 H Plt Count 89 L Lymph % (Auto) [place] % (Auto) Lymph # [place] # Baso # Seg Neutrophils % Seg Neuts % (Manual) Lymphocytes % (Manual) 8.0 L Monocytes % (Manual) Eosinophils % (Manual) Basophils % (Manual) Nucleated RBC % Seg Neutrophils # 11.9 H Seg Neutrophils # Man Lymphocytes # (Manual) 1.0 L Monocytes # (Manual) Eosinophils # (Manual) Basophils # (Manual) PT INR Fibrinogen dRVVT Confirm Interp Factor V Activity POC ABG pH POC ABG pCO2 POC ABG pO2 ABG pO2 ABG HCO3 ABG Base Excess ABG Hemoglobin Oxyhemoglobin Sodium Potassium Chloride Carbon Dioxide BUN Creatinine Glucose POC Glucose 55 L 199 H Lactic Acid Calcium Ionized Calcium Phosphorus Magnesium Direct Bilirubin AST ALT Alkaline Phosphatase Lactate Dehydrogenase Troponin T C-Reactive Protein Total Protein Albumin Prealbumin Triglycerides Cholesterol LDL Cholesterol Direct HDL Cholesterol 25-OH Vitamin D Total PTH Intact Urine pH Urine WBC (Auto) Urine Creatinine Urine Total Protein Fluid Total Protein Vancomycin Trough Rheumatoid Factor Complement C4 Miscellaneous Test Crossmatch 10/03/16 10/03/16 10/03/16 05:10 12:14 13:18 WBC RBC Hgb Hct MCV MCH MCHC RDW Plt Count Lymph % (Auto) [place] % (Auto) Lymph # [place] # Baso # Seg Neutrophils % Seg Neuts % (Manual) Lymphocytes % (Manual) Monocytes % (Manual) Eosinophils % (Manual) Basophils % (Manual) Nucleated RBC % Seg Neutrophils # Seg Neutrophils # Man Lymphocytes # (Manual) Monocytes # (Manual) Eosinophils # (Manual) Basophils # (Manual) PT INR Fibrinogen dRVVT Confirm Interp Factor V Activity POC ABG pH POC ABG pCO2 POC ABG pO2 ABG pO2 ABG HCO3 ABG Base Excess ABG Hemoglobin Oxyhemoglobin Sodium 129 L Potassium 3.3 L Chloride 88.8 L Carbon Dioxide 20 L BUN 29 H Creatinine 2.8 H Glucose POC Glucose 68 L 127 H Lactic Acid Calcium 7.2 L Ionized Calcium Phosphorus Magnesium Direct Bilirubin AST ALT Alkaline Phosphatase Lactate Dehydrogenase Troponin T C-Reactive Protein Total Protein Albumin Prealbumin Triglycerides Cholesterol LDL Cholesterol Direct HDL Cholesterol 25-OH Vitamin D Total PTH Intact Urine pH Urine WBC (Auto) Urine Creatinine Urine Total Protein Fluid Total Protein Vancomycin Trough Rheumatoid Factor Complement C4 Miscellaneous Test Crossmatch 10/03/16 10/03/16 10/03/16 14:42 18:21 19:09 WBC RBC Hgb Hct MCV MCH MCHC RDW Plt Count Lymph % (Auto) [place] % (Auto) Lymph # [place] # Baso # Seg Neutrophils % Seg Neuts % (Manual) Lymphocytes % (Manual) Monocytes % (Manual) Eosinophils % (Manual) Basophils % (Manual) Nucleated RBC % Seg Neutrophils # Seg Neutrophils # Man Lymphocytes # (Manual) Monocytes # (Manual) Eosinophils # (Manual) Basophils # (Manual) PT INR Fibrinogen dRVVT Confirm Interp Factor V Activity POC ABG pH 7.499 H POC ABG pCO2 28.4 L POC ABG pO2 44 L ABG pO2 ABG HCO3 ABG Base Excess ABG Hemoglobin Oxyhemoglobin Sodium Potassium Chloride Carbon Dioxide BUN Creatinine Glucose POC Glucose 64 L 205 H Lactic Acid Calcium Ionized Calcium Phosphorus Magnesium Direct Bilirubin AST ALT Alkaline Phosphatase Lactate Dehydrogenase Troponin T C-Reactive Protein Total Protein Albumin Prealbumin Triglycerides Cholesterol LDL Cholesterol Direct HDL Cholesterol 25-OH Vitamin D Total PTH Intact Urine pH Urine WBC (Auto) Urine Creatinine Urine Total Protein Fluid Total Protein Vancomycin Trough Rheumatoid Factor Complement C4 Miscellaneous Test Crossmatch 10/03/16 10/04/16 10/04/16 23:33 04:18 06:30 WBC RBC 2.54 L Hgb 7.1 L Hct 21.7 L MCV MCH MCHC RDW 19.5 H Plt Count 76 L Lymph % (Auto) [place] % (Auto) Lymph # [place] # Baso # Seg Neutrophils % Seg Neuts % (Manual) 88.0 H Lymphocytes % (Manual) 6.0 L Monocytes % (Manual) Eosinophils % (Manual) Basophils % (Manual) Nucleated RBC % Seg Neutrophils # Seg Neutrophils # Man 8.8 H Lymphocytes # (Manual) 0.6 L Monocytes # (Manual) Eosinophils # (Manual) Basophils # (Manual) PT INR Fibrinogen dRVVT Confirm Interp Factor V Activity POC ABG pH 7.461 H POC ABG pCO2 33.6 L POC ABG pO2 211 H ABG pO2 ABG HCO3 ABG Base Excess ABG Hemoglobin Oxyhemoglobin Sodium Potassium Chloride Carbon Dioxide BUN Creatinine Glucose POC Glucose 136 H Lactic Acid Calcium Ionized Calcium Phosphorus Magnesium Direct Bilirubin AST ALT Alkaline Phosphatase Lactate Dehydrogenase Troponin T C-Reactive Protein Total Protein Albumin Prealbumin Triglycerides Cholesterol LDL Cholesterol Direct HDL Cholesterol 25-OH Vitamin D Total PTH Intact Urine pH Urine WBC (Auto) Urine Creatinine Urine Total Protein Fluid Total Protein Vancomycin Trough Rheumatoid Factor Complement C4 Miscellaneous Test Crossmatch 10/04/16 10/04/16 10/04/16 06:30 11:45 17:54 WBC RBC Hgb Hct MCV MCH MCHC RDW Plt Count Lymph % (Auto) [place] % (Auto) Lymph # [place] # Baso # Seg Neutrophils % Seg Neuts % (Manual) Lymphocytes % (Manual) Monocytes % (Manual) Eosinophils % (Manual) Basophils % (Manual) Nucleated RBC % Seg Neutrophils # Seg Neutrophils # Man Lymphocytes # (Manual) Monocytes # (Manual) Eosinophils # (Manual) Basophils # (Manual) PT INR Fibrinogen dRVVT Confirm Interp Factor V Activity POC ABG pH POC ABG pCO2 POC ABG pO2 ABG pO2 ABG HCO3 ABG Base Excess ABG Hemoglobin Oxyhemoglobin Sodium 128 L Potassium Chloride 87.4 L Carbon Dioxide 20 L BUN 34 H Creatinine 2.9 H Glucose 127 H POC Glucose 158 H 160 H Lactic Acid Calcium 7.4 L Ionized Calcium Phosphorus Magnesium Direct Bilirubin AST ALT Alkaline Phosphatase Lactate Dehydrogenase Troponin T C-Reactive Protein Total Protein Albumin Prealbumin Triglycerides Cholesterol LDL Cholesterol Direct HDL Cholesterol 25-OH Vitamin D Total PTH Intact Urine pH Urine WBC (Auto) Urine Creatinine Urine Total Protein Fluid Total Protein Vancomycin Trough Rheumatoid Factor Complement C4 Miscellaneous Test Crossmatch 10/04/16 10/05/16 10/05/16 23:25 04:30 05:00 WBC RBC 2.64 L Hgb 7.5 L Hct 22.6 L MCV MCH MCHC RDW 19.3 H Plt Count 80 L Lymph % (Auto) [place] % (Auto) Lymph # [place] # Baso # Seg Neutrophils % Seg Neuts % (Manual) Lymphocytes % (Manual) 12.0 L Monocytes % (Manual) Eosinophils % (Manual) Basophils % (Manual) Nucleated RBC % Seg Neutrophils # Seg Neutrophils # Man Lymphocytes # (Manual) Monocytes # (Manual) Eosinophils # (Manual) Basophils # (Manual) PT INR Fibrinogen dRVVT Confirm Interp Factor V Activity POC ABG pH 7.475 H POC ABG pCO2 33.3 L POC ABG pO2 140 H ABG pO2 ABG HCO3 ABG Base Excess ABG Hemoglobin Oxyhemoglobin Sodium Potassium Chloride Carbon Dioxide BUN Creatinine Glucose POC Glucose 141 H Lactic Acid Calcium Ionized Calcium Phosphorus Magnesium Direct Bilirubin AST ALT Alkaline Phosphatase Lactate Dehydrogenase Troponin T C-Reactive Protein Total Protein Albumin Prealbumin Triglycerides Cholesterol LDL Cholesterol Direct HDL Cholesterol 25-OH Vitamin D Total PTH Intact Urine pH Urine WBC (Auto) Urine Creatinine Urine Total Protein Fluid Total Protein Vancomycin Trough Rheumatoid Factor Complement C4 Miscellaneous Test Crossmatch 10/05/16 10/05/16 10/05/16 05:00 05:09 12:58 WBC RBC Hgb Hct MCV MCH MCHC RDW Plt Count Lymph % (Auto) [place] % (Auto) Lymph # [place] # Baso # Seg Neutrophils % Seg Neuts % (Manual) Lymphocytes % (Manual) Monocytes % (Manual) Eosinophils % (Manual) Basophils % (Manual) Nucleated RBC % Seg Neutrophils # Seg Neutrophils # Man Lymphocytes # (Manual) Monocytes # (Manual) Eosinophils # (Manual) Basophils # (Manual) PT INR Fibrinogen dRVVT Confirm Interp Factor V Activity POC ABG pH POC ABG pCO2 POC ABG pO2 ABG pO2 ABG HCO3 ABG Base Excess ABG Hemoglobin Oxyhemoglobin Sodium 131 L Potassium Chloride 94.0 L Carbon Dioxide 20 L BUN 22 H Creatinine 2.0 H Glucose 123 H POC Glucose 166 H 179 H Lactic Acid Calcium 7.7 L Ionized Calcium Phosphorus 2.20 L D Magnesium Direct Bilirubin AST ALT Alkaline Phosphatase Lactate Dehydrogenase Troponin T C-Reactive Protein Total Protein Albumin Prealbumin Triglycerides Cholesterol LDL Cholesterol Direct HDL Cholesterol 25-OH Vitamin D Total PTH Intact Urine pH Urine WBC (Auto) Urine Creatinine Urine Total Protein Fluid Total Protein Vancomycin Trough Rheumatoid Factor Complement C4 Miscellaneous Test Crossmatch 10/05/16 10/05/16 10/05/16 15:50 18:53 23:12 WBC RBC Hgb Hct MCV MCH MCHC RDW Plt Count Lymph % (Auto) [place] % (Auto) Lymph # [place] # Baso # Seg Neutrophils % Seg Neuts % (Manual) Lymphocytes % (Manual) Monocytes % (Manual) Eosinophils % (Manual) Basophils % (Manual) Nucleated RBC % Seg Neutrophils # Seg Neutrophils # Man Lymphocytes # (Manual) Monocytes # (Manual) Eosinophils # (Manual) Basophils # (Manual) PT INR Fibrinogen dRVVT Confirm Interp Factor V Activity POC ABG pH POC ABG pCO2 POC ABG pO2 ABG pO2 ABG HCO3 ABG Base Excess ABG Hemoglobin Oxyhemoglobin Sodium Potassium Chloride Carbon Dioxide BUN Creatinine Glucose POC Glucose 150 H 164 H Lactic Acid Calcium Ionized Calcium Phosphorus Magnesium Direct Bilirubin AST ALT Alkaline Phosphatase Lactate Dehydrogenase Troponin T C-Reactive Protein Total Protein Albumin Prealbumin Triglycerides Cholesterol LDL Cholesterol Direct HDL Cholesterol 25-OH Vitamin D Total PTH Intact Urine pH Urine WBC (Auto) Urine Creatinine Urine Total Protein Fluid Total Protein Vancomycin Trough Rheumatoid Factor Complement C4 Miscellaneous Test Crossmatch See Detail 10/06/16 10/06/16 10/06/16 03:50 03:50 04:53 WBC RBC 3.00 L Hgb 8.6 L Hct 25.8 L MCV MCH MCHC RDW 17.9 H Plt Count 65 L Lymph % (Auto) [place] % (Auto) Lymph # [place] # Baso # Seg Neutrophils % Seg Neuts % (Manual) 30.0 L Lymphocytes % (Manual) 5.0 L Monocytes % (Manual) Eosinophils % (Manual) Basophils % (Manual) Nucleated RBC % Seg Neutrophils # Seg Neutrophils # Man Lymphocytes # (Manual) 0.4 L Monocytes # (Manual) Eosinophils # (Manual) Basophils # (Manual) PT INR Fibrinogen dRVVT Confirm Interp Factor V Activity POC ABG pH 7.310 L POC ABG pCO2 49.0 H POC ABG pO2 ABG pO2 ABG HCO3 ABG Base Excess ABG Hemoglobin Oxyhemoglobin Sodium 133 L Potassium Chloride 95.9 L Carbon Dioxide BUN 26 H Creatinine 2.0 H Glucose 116 H POC Glucose Lactic Acid Calcium 7.8 L Ionized Calcium Phosphorus Magnesium Direct Bilirubin AST ALT Alkaline Phosphatase Lactate Dehydrogenase Troponin T C-Reactive Protein Total Protein Albumin Prealbumin Triglycerides Cholesterol LDL Cholesterol Direct HDL Cholesterol 25-OH Vitamin D Total PTH Intact Urine pH Urine WBC (Auto) Urine Creatinine Urine Total Protein Fluid Total Protein Vancomycin Trough Rheumatoid Factor Complement C4 Miscellaneous Test Crossmatch 10/06/16 10/06/16 10/06/16 05:23 11:52 18:34 WBC RBC Hgb Hct MCV MCH MCHC RDW Plt Count Lymph % (Auto) [place] % (Auto) Lymph # [place] # Baso # Seg Neutrophils % Seg Neuts % (Manual) Lymphocytes % (Manual) Monocytes % (Manual) Eosinophils % (Manual) Basophils % (Manual) Nucleated RBC % Seg Neutrophils # Seg Neutrophils # Man Lymphocytes # (Manual) Monocytes # (Manual) Eosinophils # (Manual) Basophils # (Manual) PT INR Fibrinogen dRVVT Confirm Interp Factor V Activity POC ABG pH POC ABG pCO2 POC ABG pO2 ABG pO2 ABG HCO3 ABG Base Excess ABG Hemoglobin Oxyhemoglobin Sodium Potassium Chloride Carbon Dioxide BUN Creatinine Glucose POC Glucose 126 H 116 H 129 H Lactic Acid Calcium Ionized Calcium Phosphorus Magnesium Direct Bilirubin AST ALT Alkaline Phosphatase Lactate Dehydrogenase Troponin T C-Reactive Protein Total Protein Albumin Prealbumin Triglycerides Cholesterol LDL Cholesterol Direct HDL Cholesterol 25-OH Vitamin D Total PTH Intact Urine pH Urine WBC (Auto) Urine Creatinine Urine Total Protein Fluid Total Protein Vancomycin Trough Rheumatoid Factor Complement C4 Miscellaneous Test Crossmatch 10/07/16 10/07/16 10/07/16 03:45 05:00 10:00 WBC 17.0 H RBC 2.68 L Hgb 7.3 L Hct 25.3 L MCV MCH 27 L MCHC 29 L RDW 19.6 H Plt Count 74 L Lymph % (Auto) [place] % (Auto) Lymph # [place] # Baso # Seg Neutrophils % Seg Neuts % (Manual) Lymphocytes % (Manual) 12.0 L Monocytes % (Manual) Eosinophils % (Manual) Basophils % (Manual) Nucleated RBC % 4.0 H Seg Neutrophils # Seg Neutrophils # Man 10.7 H Lymphocytes # (Manual) Monocytes # (Manual) Eosinophils # (Manual) Basophils # (Manual) PT INR Fibrinogen dRVVT Confirm Interp Factor V Activity POC ABG pH POC ABG pCO2 POC ABG pO2 ABG pO2 ABG HCO3 ABG Base Excess ABG Hemoglobin Oxyhemoglobin Sodium 130 L Potassium 3.2 L Chloride 93.9 L Carbon Dioxide 20 L BUN 44 H Creatinine 2.7 H Glucose 129 H POC Glucose Lactic Acid Calcium 7.4 L Ionized Calcium Phosphorus Magnesium Direct Bilirubin AST ALT 6 L Alkaline Phosphatase 195 H Lactate Dehydrogenase Troponin T C-Reactive Protein Total Protein 4.9 L Albumin 1.0 L Prealbumin Triglycerides Cholesterol LDL Cholesterol Direct HDL Cholesterol 25-OH Vitamin D Total PTH Intact Urine pH Urine WBC (Auto) Urine Creatinine Urine Total Protein Fluid Total Protein Vancomycin Trough Rheumatoid Factor Complement C4 Miscellaneous Test Flexitest 1 H Crossmatch 10/07/16 10/07/16 10/07/16 10:00 11:24 18:10 WBC RBC Hgb Hct MCV MCH MCHC RDW Plt Count Lymph % (Auto) [place] % (Auto) Lymph # [place] # Baso # Seg Neutrophils % Seg Neuts % (Manual) Lymphocytes % (Manual) Monocytes % (Manual) Eosinophils % (Manual) Basophils % (Manual) Nucleated RBC % Seg Neutrophils # Seg Neutrophils # Man Lymphocytes # (Manual) Monocytes # (Manual) Eosinophils # (Manual) Basophils # (Manual) PT INR Fibrinogen dRVVT Confirm Interp Factor V Activity POC ABG pH POC ABG pCO2 POC ABG pO2 ABG pO2 ABG HCO3 ABG Base Excess ABG Hemoglobin Oxyhemoglobin Sodium Potassium Chloride Carbon Dioxide BUN Creatinine Glucose POC Glucose 116 H 130 H Lactic Acid Calcium Ionized Calcium Phosphorus Magnesium Direct Bilirubin AST ALT Alkaline Phosphatase Lactate Dehydrogenase Troponin T C-Reactive Protein 19.40 H Total Protein Albumin Prealbumin Triglycerides Cholesterol LDL Cholesterol Direct HDL Cholesterol 25-OH Vitamin D Total PTH Intact Urine pH Urine WBC (Auto) Urine Creatinine Urine Total Protein Fluid Total Protein Vancomycin Trough Rheumatoid Factor Complement C4 Miscellaneous Test Crossmatch 10/07/16 10/08/16 10/08/16 18:30 00:00 04:00 WBC RBC Hgb Hct MCV MCH MCHC RDW Plt Count Lymph % (Auto) [place] % (Auto) Lymph # [place] # Baso # Seg Neutrophils % Seg Neuts % (Manual) Lymphocytes % (Manual) Monocytes % (Manual) Eosinophils % (Manual) Basophils % (Manual) Nucleated RBC % Seg Neutrophils # Seg Neutrophils # Man Lymphocytes # (Manual) Monocytes # (Manual) Eosinophils # (Manual) Basophils # (Manual) PT INR Fibrinogen dRVVT Confirm Interp Factor V Activity POC ABG pH POC ABG pCO2 POC ABG pO2 ABG pO2 ABG HCO3 ABG Base Excess ABG Hemoglobin Oxyhemoglobin Sodium 132 L Potassium 3.3 L Chloride 93.6 L Carbon Dioxide 17 L BUN 59 H Creatinine 2.7 H Glucose 121 H POC Glucose 122 H Lactic Acid Calcium 7.6 L Ionized Calcium Phosphorus Magnesium Direct Bilirubin AST ALT Alkaline Phosphatase Lactate Dehydrogenase Troponin T C-Reactive Protein Total Protein Albumin Prealbumin Triglycerides Cholesterol LDL Cholesterol Direct HDL Cholesterol 25-OH Vitamin D Total PTH Intact Urine pH Urine WBC (Auto) > 182.0 H Urine Creatinine Urine Total Protein Fluid Total Protein Vancomycin Trough Rheumatoid Factor Complement C4 Miscellaneous Test Crossmatch 10/08/16 10/08/16 10/08/16 04:30 05:30 11:51 WBC RBC 5.15 H Hgb 14.4 H D Hct 44.5 H D MCV MCH MCHC RDW 19.5 H Plt Count 56 L Lymph % (Auto) [place] % (Auto) Lymph # [place] # Baso # Seg Neutrophils % Seg Neuts % (Manual) 24.0 L Lymphocytes % (Manual) 8.0 L Monocytes % (Manual) Eosinophils % (Manual) Basophils % (Manual) Nucleated RBC % 9.0 H Seg Neutrophils # Seg Neutrophils # Man Lymphocytes # (Manual) 0.7 L Monocytes # (Manual) Eosinophils # (Manual) Basophils # (Manual) PT INR Fibrinogen dRVVT Confirm Interp Factor V Activity POC ABG pH POC ABG pCO2 POC ABG pO2 ABG pO2 ABG HCO3 ABG Base Excess ABG Hemoglobin Oxyhemoglobin Sodium Potassium Chloride Carbon Dioxide BUN Creatinine Glucose POC Glucose 125 H 150 H Lactic Acid Calcium Ionized Calcium Phosphorus Magnesium Direct Bilirubin AST ALT Alkaline Phosphatase Lactate Dehydrogenase Troponin T C-Reactive Protein Total Protein Albumin Prealbumin Triglycerides Cholesterol LDL Cholesterol Direct HDL Cholesterol 25-OH Vitamin D Total PTH Intact Urine pH Urine WBC (Auto) Urine Creatinine Urine Total Protein Fluid Total Protein Vancomycin Trough Rheumatoid Factor Complement C4 Miscellaneous Test Crossmatch 10/08/16 10/08/16 10/08/16 12:49 17:07 19:30 WBC RBC Hgb 7.1 L D Hct 22.4 L D MCV MCH MCHC RDW Plt Count Lymph % (Auto) [place] % (Auto) Lymph # [place] # Baso # Seg Neutrophils % Seg Neuts % (Manual) Lymphocytes % (Manual) Monocytes % (Manual) Eosinophils % (Manual) Basophils % (Manual) Nucleated RBC % Seg Neutrophils # Seg Neutrophils # Man Lymphocytes # (Manual) Monocytes # (Manual) Eosinophils # (Manual) Basophils # (Manual) PT INR Fibrinogen dRVVT Confirm Interp Factor V Activity POC ABG pH POC ABG pCO2 28.2 L POC ABG pO2 111 H ABG pO2 ABG HCO3 ABG Base Excess ABG Hemoglobin Oxyhemoglobin Sodium Potassium Chloride Carbon Dioxide BUN Creatinine Glucose POC Glucose 145 H Lactic Acid Calcium Ionized Calcium Phosphorus Magnesium Direct Bilirubin AST ALT Alkaline Phosphatase Lactate Dehydrogenase Troponin T C-Reactive Protein Total Protein Albumin Prealbumin Triglycerides Cholesterol LDL Cholesterol Direct HDL Cholesterol 25-OH Vitamin D Total PTH Intact Urine pH Urine WBC (Auto) Urine Creatinine Urine Total Protein Fluid Total Protein Vancomycin Trough Rheumatoid Factor Complement C4 Miscellaneous Test Crossmatch 10/08/16 10/09/16 10/09/16 19:30 03:45 03:45 WBC 12.6 H RBC 2.36 L Hgb 6.7 L Hct 21.1 L MCV MCH MCHC RDW 19.5 H Plt Count 75 L Lymph % (Auto) [place] % (Auto) Lymph # [place] # Baso # Seg Neutrophils % Seg Neuts % (Manual) Lymphocytes % (Manual) Monocytes % (Manual) 10.0 H Eosinophils % (Manual) Basophils % (Manual) Nucleated RBC % 3.0 H Seg Neutrophils # Seg Neutrophils # Man Lymphocytes # (Manual) Monocytes # (Manual) 1.3 H Eosinophils # (Manual) Basophils # (Manual) PT 18.0 H INR 1.41 H Fibrinogen dRVVT Confirm Interp Factor V Activity POC ABG pH POC ABG pCO2 POC ABG pO2 ABG pO2 ABG HCO3 ABG Base Excess ABG Hemoglobin Oxyhemoglobin Sodium 135 L Potassium Chloride Carbon Dioxide 17 L BUN 81 H Creatinine 3.2 H Glucose 109 H POC Glucose Lactic Acid Calcium 7.4 L Ionized Calcium Phosphorus 4.60 H D Magnesium Direct Bilirubin AST ALT Alkaline Phosphatase Lactate Dehydrogenase Troponin T C-Reactive Protein Total Protein Albumin Prealbumin Triglycerides Cholesterol LDL Cholesterol Direct HDL Cholesterol 25-OH Vitamin D Total PTH Intact Urine pH Urine WBC (Auto) Urine Creatinine Urine Total Protein Fluid Total Protein Vancomycin Trough Rheumatoid Factor Complement C4 Miscellaneous Test Crossmatch 10/09/16 10/09/16 10/09/16 03:45 05:14 07:20 WBC RBC Hgb Hct MCV MCH MCHC RDW Plt Count Lymph % (Auto) [place] % (Auto) Lymph # [place] # Baso # Seg Neutrophils % Seg Neuts % (Manual) Lymphocytes % (Manual) Monocytes % (Manual) Eosinophils % (Manual) Basophils % (Manual) Nucleated RBC % Seg Neutrophils # Seg Neutrophils # Man Lymphocytes # (Manual) Monocytes # (Manual) Eosinophils # (Manual) Basophils # (Manual) PT 19.0 H INR 1.51 H Fibrinogen dRVVT Confirm Interp Factor V Activity POC ABG pH POC ABG pCO2 POC ABG pO2 ABG pO2 ABG HCO3 ABG Base Excess ABG Hemoglobin Oxyhemoglobin Sodium Potassium Chloride Carbon Dioxide BUN Creatinine Glucose POC Glucose 151 H Lactic Acid Calcium Ionized Calcium Phosphorus Magnesium Direct Bilirubin AST ALT Alkaline Phosphatase Lactate Dehydrogenase Troponin T C-Reactive Protein Total Protein Albumin Prealbumin Triglycerides Cholesterol LDL Cholesterol Direct HDL Cholesterol 25-OH Vitamin D Total PTH Intact Urine pH Urine WBC (Auto) Urine Creatinine Urine Total Protein Fluid Total Protein Vancomycin Trough Rheumatoid Factor Complement C4 Miscellaneous Test Crossmatch See Detail 10/09/16 10/09/16 10/09/16 11:46 16:20 16:43 WBC RBC Hgb 7.2 L Hct 22.2 L MCV MCH MCHC RDW Plt Count Lymph % (Auto) [place] % (Auto) Lymph # [place] # Baso # Seg Neutrophils % Seg Neuts % (Manual) Lymphocytes % (Manual) Monocytes % (Manual) Eosinophils % (Manual) Basophils % (Manual) Nucleated RBC % Seg Neutrophils # Seg Neutrophils # Man Lymphocytes # (Manual) Monocytes # (Manual) Eosinophils # (Manual) Basophils # (Manual) PT INR Fibrinogen dRVVT Confirm Interp Factor V Activity POC ABG pH POC ABG pCO2 POC ABG pO2 ABG pO2 ABG HCO3 ABG Base Excess ABG Hemoglobin Oxyhemoglobin Sodium Potassium Chloride Carbon Dioxide BUN Creatinine Glucose POC Glucose 133 H 141 H Lactic Acid Calcium Ionized Calcium Phosphorus Magnesium Direct Bilirubin AST ALT Alkaline Phosphatase Lactate Dehydrogenase Troponin T C-Reactive Protein Total Protein Albumin Prealbumin Triglycerides Cholesterol LDL Cholesterol Direct HDL Cholesterol 25-OH Vitamin D Total PTH Intact Urine pH Urine WBC (Auto) Urine Creatinine Urine Total Protein Fluid Total Protein Vancomycin Trough Rheumatoid Factor Complement C4 Miscellaneous Test Crossmatch 10/10/16 10/10/16 10/10/16 05:00 05:00 11:19 WBC 18.5 H RBC 2.19 L Hgb 6.4 L Hct 19.6 L* MCV MCH MCHC RDW 19.3 H Plt Count 93 L Lymph % (Auto) [place] % (Auto) Lymph # [place] # Baso # Seg Neutrophils % Seg Neuts % (Manual) Lymphocytes % (Manual) 10.0 L Monocytes % (Manual) Eosinophils % (Manual) Basophils % (Manual) Nucleated RBC % 4.0 H Seg Neutrophils # Seg Neutrophils # Man 11.3 H Lymphocytes # (Manual) Monocytes # (Manual) Eosinophils # (Manual) Basophils # (Manual) PT INR Fibrinogen dRVVT Confirm Interp Factor V Activity POC ABG pH POC ABG pCO2 POC ABG pO2 ABG pO2 ABG HCO3 ABG Base Excess ABG Hemoglobin Oxyhemoglobin Sodium Potassium 5.7 H D Chloride Carbon Dioxide 16 L BUN 94 H Creatinine 3.1 H Glucose 131 H POC Glucose 153 H Lactic Acid Calcium 8.2 L Ionized Calcium Phosphorus 5.10 H Magnesium 2.40 H Direct Bilirubin 0.3 H AST ALT < 5 L Alkaline Phosphatase 319 H Lactate Dehydrogenase Troponin T C-Reactive Protein Total Protein 5.1 L Albumin 1.0 L Prealbumin Triglycerides Cholesterol LDL Cholesterol Direct HDL Cholesterol 25-OH Vitamin D Total PTH Intact Urine pH Urine WBC (Auto) Urine Creatinine Urine Total Protein Fluid Total Protein Vancomycin Trough Rheumatoid Factor Complement C4 Miscellaneous Test Crossmatch 10/10/16 10/10/16 10/11/16 17:50 23:30 04:15 WBC RBC Hgb Hct MCV MCH MCHC RDW Plt Count Lymph % (Auto) [place] % (Auto) Lymph # [place] # Baso # Seg Neutrophils % Seg Neuts % (Manual) Lymphocytes % (Manual) Monocytes % (Manual) Eosinophils % (Manual) Basophils % (Manual) Nucleated RBC % Seg Neutrophils # Seg Neutrophils # Man Lymphocytes # (Manual) Monocytes # (Manual) Eosinophils # (Manual) Basophils # (Manual) PT INR Fibrinogen dRVVT Confirm Interp Factor V Activity POC ABG pH POC ABG pCO2 POC ABG pO2 ABG pO2 ABG HCO3 ABG Base Excess ABG Hemoglobin Oxyhemoglobin Sodium Potassium Chloride 96.4 L Carbon Dioxide 21 L BUN 57 H Creatinine 2.1 H Glucose 151 H POC Glucose 146 H 141 H Lactic Acid Calcium 8.3 L Ionized Calcium Phosphorus Magnesium Direct Bilirubin AST ALT Alkaline Phosphatase Lactate Dehydrogenase Troponin T C-Reactive Protein Total Protein Albumin Prealbumin Triglycerides Cholesterol LDL Cholesterol Direct HDL Cholesterol 25-OH Vitamin D Total PTH Intact Urine pH Urine WBC (Auto) Urine Creatinine Urine Total Protein Fluid Total Protein Vancomycin Trough Rheumatoid Factor Complement C4 Miscellaneous Test Crossmatch 10/11/16 10/11/16 10/11/16 04:15 04:15 05:30 WBC 28.3 H RBC 3.12 L Hgb 9.3 L Hct 28.7 L D MCV MCH MCHC RDW 17.7 H Plt Count 128 L Lymph % (Auto) [place] % (Auto) Lymph # [place] # Baso # Seg Neutrophils % Seg Neuts % (Manual) Lymphocytes % (Manual) Monocytes % (Manual) Eosinophils % (Manual) Basophils % (Manual) Nucleated RBC % Seg Neutrophils # Seg Neutrophils # Man Lymphocytes # (Manual) Monocytes # (Manual) Eosinophils # (Manual) Basophils # (Manual) PT INR Fibrinogen dRVVT Confirm Interp Factor V Activity POC ABG pH POC ABG pCO2 POC ABG pO2 ABG pO2 ABG HCO3 ABG Base Excess ABG Hemoglobin Oxyhemoglobin Sodium Potassium Chloride Carbon Dioxide BUN Creatinine Glucose POC Glucose 167 H Lactic Acid Calcium Ionized Calcium Phosphorus Magnesium Direct Bilirubin AST ALT Alkaline Phosphatase Lactate Dehydrogenase Troponin T C-Reactive Protein 15.80 H Total Protein Albumin Prealbumin Triglycerides Cholesterol LDL Cholesterol Direct HDL Cholesterol 25-OH Vitamin D Total PTH Intact Urine pH Urine WBC (Auto) Urine Creatinine Urine Total Protein Fluid Total Protein Vancomycin Trough Rheumatoid Factor Complement C4 Miscellaneous Test Crossmatch 10/11/16 10/11/16 10/11/16 11:40 15:49 23:57 WBC RBC Hgb Hct MCV MCH MCHC RDW Plt Count Lymph % (Auto) [place] % (Auto) Lymph # [place] # Baso # Seg Neutrophils % Seg Neuts % (Manual) Lymphocytes % (Manual) Monocytes % (Manual) Eosinophils % (Manual) Basophils % (Manual) Nucleated RBC % Seg Neutrophils # Seg Neutrophils # Man Lymphocytes # (Manual) Monocytes # (Manual) Eosinophils # (Manual) Basophils # (Manual) PT INR Fibrinogen dRVVT Confirm Interp Factor V Activity POC ABG pH POC ABG pCO2 POC ABG pO2 ABG pO2 ABG HCO3 ABG Base Excess ABG Hemoglobin Oxyhemoglobin Sodium Potassium Chloride Carbon Dioxide BUN Creatinine Glucose POC Glucose 139 H 168 H 161 H Lactic Acid Calcium Ionized Calcium Phosphorus Magnesium Direct Bilirubin AST ALT Alkaline Phosphatase Lactate Dehydrogenase Troponin T C-Reactive Protein Total Protein Albumin Prealbumin Triglycerides Cholesterol LDL Cholesterol Direct HDL Cholesterol 25-OH Vitamin D Total PTH Intact Urine pH Urine WBC (Auto) Urine Creatinine Urine Total Protein Fluid Total Protein Vancomycin Trough Rheumatoid Factor Complement C4 Miscellaneous Test Crossmatch 10/12/16 10/12/16 10/12/16 04:40 04:40 05:44 WBC 22.5 H RBC 2.88 L Hgb 8.8 L Hct 26.8 L MCV MCH MCHC RDW 17.8 H Plt Count Lymph % (Auto) [place] % (Auto) Lymph # [place] # Baso # Seg Neutrophils % Seg Neuts % (Manual) Lymphocytes % (Manual) Monocytes % (Manual) Eosinophils % (Manual) Basophils % (Manual) Nucleated RBC % Seg Neutrophils # Seg Neutrophils # Man Lymphocytes # (Manual) Monocytes # (Manual) Eosinophils # (Manual) Basophils # (Manual) PT INR Fibrinogen dRVVT Confirm Interp Factor V Activity POC ABG pH POC ABG pCO2 POC ABG pO2 ABG pO2 ABG HCO3 ABG Base Excess ABG Hemoglobin Oxyhemoglobin Sodium 134 L Potassium Chloride 93.0 L Carbon Dioxide BUN 74 H Creatinine 2.5 H Glucose 137 H POC Glucose 158 H Lactic Acid Calcium 8.2 L Ionized Calcium Phosphorus Magnesium Direct Bilirubin AST ALT Alkaline Phosphatase Lactate Dehydrogenase Troponin T C-Reactive Protein Total Protein Albumin Prealbumin Triglycerides Cholesterol LDL Cholesterol Direct HDL Cholesterol 25-OH Vitamin D Total PTH Intact Urine pH Urine WBC (Auto) Urine Creatinine Urine Total Protein Fluid Total Protein Vancomycin Trough Rheumatoid Factor Complement C4 Miscellaneous Test Crossmatch 10/12/16 10/12/16 10/12/16 12:27 18:18 23:46 WBC RBC Hgb Hct MCV MCH MCHC RDW Plt Count Lymph % (Auto) [place] % (Auto) Lymph # [place] # Baso # Seg Neutrophils % Seg Neuts % (Manual) Lymphocytes % (Manual) Monocytes % (Manual) Eosinophils % (Manual) Basophils % (Manual) Nucleated RBC % Seg Neutrophils # Seg Neutrophils # Man Lymphocytes # (Manual) Monocytes # (Manual) Eosinophils # (Manual) Basophils # (Manual) PT INR Fibrinogen dRVVT Confirm Interp Factor V Activity POC ABG pH POC ABG pCO2 POC ABG pO2 ABG pO2 ABG HCO3 ABG Base Excess ABG Hemoglobin Oxyhemoglobin Sodium Potassium Chloride Carbon Dioxide BUN Creatinine Glucose POC Glucose 153 H 140 H 150 H Lactic Acid Calcium Ionized Calcium Phosphorus Magnesium Direct Bilirubin AST ALT Alkaline Phosphatase Lactate Dehydrogenase Troponin T C-Reactive Protein Total Protein Albumin Prealbumin Triglycerides Cholesterol LDL Cholesterol Direct HDL Cholesterol 25-OH Vitamin D Total PTH Intact Urine pH Urine WBC (Auto) Urine Creatinine Urine Total Protein Fluid Total Protein Vancomycin Trough Rheumatoid Factor Complement C4 Miscellaneous Test Crossmatch 10/13/16 10/13/16 10/13/16 06:22 09:20 12:29 WBC RBC Hgb Hct MCV MCH MCHC RDW Plt Count Lymph % (Auto) [place] % (Auto) Lymph # [place] # Baso # Seg Neutrophils % Seg Neuts % (Manual) Lymphocytes % (Manual) Monocytes % (Manual) Eosinophils % (Manual) Basophils % (Manual) Nucleated RBC % Seg Neutrophils # Seg Neutrophils # Man Lymphocytes # (Manual) Monocytes # (Manual) Eosinophils # (Manual) Basophils # (Manual) PT INR Fibrinogen dRVVT Confirm Interp Factor V Activity POC ABG pH POC ABG pCO2 POC ABG pO2 ABG pO2 ABG HCO3 ABG Base Excess ABG Hemoglobin Oxyhemoglobin Sodium Potassium Chloride Carbon Dioxide BUN Creatinine Glucose POC Glucose 165 H 193 H Lactic Acid Calcium Ionized Calcium Phosphorus Magnesium Direct Bilirubin AST ALT Alkaline Phosphatase Lactate Dehydrogenase Troponin T C-Reactive Protein Total Protein Albumin Prealbumin Triglycerides Cholesterol LDL Cholesterol Direct HDL Cholesterol 25-OH Vitamin D Total PTH Intact Urine pH Urine WBC (Auto) Urine Creatinine Urine Total Protein Fluid Total Protein Vancomycin Trough Rheumatoid Factor Complement C4 Miscellaneous Test Flexitest 1 H Crossmatch 10/13/16 10/13/16 10/13/16 18:09 Unknown Unknown WBC 23.4 H RBC 2.83 L Hgb 8.7 L Hct 26.1 L MCV MCH MCHC RDW 18.1 H Plt Count Lymph % (Auto) [place] % (Auto) Lymph # [place] # Baso # Seg Neutrophils % Seg Neuts % (Manual) Lymphocytes % (Manual) Monocytes % (Manual) Eosinophils % (Manual) Basophils % (Manual) Nucleated RBC % Seg Neutrophils # Seg Neutrophils # Man Lymphocytes # (Manual) Monocytes # (Manual) Eosinophils # (Manual) Basophils # (Manual) PT INR Fibrinogen dRVVT Confirm Interp Factor V Activity POC ABG pH POC ABG pCO2 POC ABG pO2 ABG pO2 ABG HCO3 ABG Base Excess ABG Hemoglobin Oxyhemoglobin Sodium Potassium Chloride 95.8 L Carbon Dioxide BUN 82 H Creatinine 2.6 H Glucose 152 H POC Glucose 166 H Lactic Acid Calcium Ionized Calcium Phosphorus Magnesium Direct Bilirubin AST ALT Alkaline Phosphatase Lactate Dehydrogenase Troponin T C-Reactive Protein Total Protein Albumin Prealbumin Triglycerides Cholesterol LDL Cholesterol Direct HDL Cholesterol 25-OH Vitamin D Total PTH Intact Urine pH Urine WBC (Auto) Urine Creatinine Urine Total Protein Fluid Total Protein Vancomycin Trough Rheumatoid Factor Complement C4 Miscellaneous Test Crossmatch 10/14/16 10/14/16 10/14/16 05:38 06:35 08:10 WBC 20.7 H RBC 2.81 L Hgb 8.4 L Hct 27.2 L MCV MCH MCHC RDW 19.4 H Plt Count Lymph % (Auto) [place] % (Auto) Lymph # [place] # Baso # Seg Neutrophils % Seg Neuts % (Manual) Lymphocytes % (Manual) Monocytes % (Manual) Eosinophils % (Manual) Basophils % (Manual) Nucleated RBC % Seg Neutrophils # Seg Neutrophils # Man Lymphocytes # (Manual) Monocytes # (Manual) Eosinophils # (Manual) Basophils # (Manual) PT INR Fibrinogen dRVVT Confirm Interp Factor V Activity POC ABG pH POC ABG pCO2 POC ABG pO2 ABG pO2 ABG HCO3 ABG Base Excess ABG Hemoglobin Oxyhemoglobin Sodium Potassium Chloride Carbon Dioxide BUN 58 H Creatinine 1.9 H Glucose 169 H POC Glucose 195 H Lactic Acid Calcium Ionized Calcium Phosphorus Magnesium Direct Bilirubin AST ALT Alkaline Phosphatase Lactate Dehydrogenase Troponin T C-Reactive Protein Total Protein Albumin Prealbumin Triglycerides Cholesterol LDL Cholesterol Direct HDL Cholesterol 25-OH Vitamin D Total PTH Intact Urine pH Urine WBC (Auto) Urine Creatinine Urine Total Protein Fluid Total Protein Vancomycin Trough Rheumatoid Factor Complement C4 Miscellaneous Test Crossmatch 10/14/16 10/14/16 10/14/16 11:44 17:13 23:28 WBC RBC Hgb Hct MCV MCH MCHC RDW Plt Count Lymph % (Auto) [place] % (Auto) Lymph # [place] # Baso # Seg Neutrophils % Seg Neuts % (Manual) Lymphocytes % (Manual) Monocytes % (Manual) Eosinophils % (Manual) Basophils % (Manual) Nucleated RBC % Seg Neutrophils # Seg Neutrophils # Man Lymphocytes # (Manual) Monocytes # (Manual) Eosinophils # (Manual) Basophils # (Manual) PT INR Fibrinogen dRVVT Confirm Interp Factor V Activity POC ABG pH POC ABG pCO2 POC ABG pO2 ABG pO2 ABG HCO3 ABG Base Excess ABG Hemoglobin Oxyhemoglobin Sodium Potassium Chloride Carbon Dioxide BUN Creatinine Glucose POC Glucose 174 H 121 H 151 H Lactic Acid Calcium Ionized Calcium Phosphorus Magnesium Direct Bilirubin AST ALT Alkaline Phosphatase Lactate Dehydrogenase Troponin T C-Reactive Protein Total Protein Albumin Prealbumin Triglycerides Cholesterol LDL Cholesterol Direct HDL Cholesterol 25-OH Vitamin D Total PTH Intact Urine pH Urine WBC (Auto) Urine Creatinine Urine Total Protein Fluid Total Protein Vancomycin Trough Rheumatoid Factor Complement C4 Miscellaneous Test Crossmatch 10/15/16 10/15/16 10/15/16 05:06 12:26 17:48 WBC RBC Hgb Hct MCV MCH MCHC RDW Plt Count Lymph % (Auto) [place] % (Auto) Lymph # [place] # Baso # Seg Neutrophils % Seg Neuts % (Manual) Lymphocytes % (Manual) Monocytes % (Manual) Eosinophils % (Manual) Basophils % (Manual) Nucleated RBC % Seg Neutrophils # Seg Neutrophils # Man Lymphocytes # (Manual) Monocytes # (Manual) Eosinophils # (Manual) Basophils # (Manual) PT INR Fibrinogen dRVVT Confirm Interp Factor V Activity POC ABG pH POC ABG pCO2 POC ABG pO2 ABG pO2 ABG HCO3 ABG Base Excess ABG Hemoglobin Oxyhemoglobin Sodium Potassium Chloride Carbon Dioxide BUN Creatinine Glucose POC Glucose 151 H 149 H 153 H Lactic Acid Calcium Ionized Calcium Phosphorus Magnesium Direct Bilirubin AST ALT Alkaline Phosphatase Lactate Dehydrogenase Troponin T C-Reactive Protein Total Protein Albumin Prealbumin Triglycerides Cholesterol LDL Cholesterol Direct HDL Cholesterol 25-OH Vitamin D Total PTH Intact Urine pH Urine WBC (Auto) Urine Creatinine Urine Total Protein Fluid Total Protein Vancomycin Trough Rheumatoid Factor Complement C4 Miscellaneous Test Crossmatch 10/15/16 10/15/16 10/16/16 Unknown Unknown 00:02 WBC 23.4 H RBC 2.78 L Hgb 8.5 L Hct 25.7 L MCV MCH MCHC RDW 18.7 H Plt Count Lymph % (Auto) [place] % (Auto) Lymph # [place] # Baso # Seg Neutrophils % Seg Neuts % (Manual) Lymphocytes % (Manual) Monocytes % (Manual) Eosinophils % (Manual) Basophils % (Manual) Nucleated RBC % Seg Neutrophils # Seg Neutrophils # Man Lymphocytes # (Manual) Monocytes # (Manual) Eosinophils # (Manual) Basophils # (Manual) PT INR Fibrinogen dRVVT Confirm Interp Factor V Activity POC ABG pH POC ABG pCO2 POC ABG pO2 ABG pO2 ABG HCO3 ABG Base Excess ABG Hemoglobin Oxyhemoglobin Sodium Potassium Chloride Carbon Dioxide BUN 73 H Creatinine 2.3 H Glucose 120 H POC Glucose 137 H Lactic Acid Calcium Ionized Calcium Phosphorus Magnesium Direct Bilirubin AST ALT Alkaline Phosphatase Lactate Dehydrogenase Troponin T C-Reactive Protein Total Protein Albumin Prealbumin Triglycerides Cholesterol LDL Cholesterol Direct HDL Cholesterol 25-OH Vitamin D Total PTH Intact Urine pH Urine WBC (Auto) Urine Creatinine Urine Total Protein Fluid Total Protein Vancomycin Trough Rheumatoid Factor Complement C4 Miscellaneous Test Crossmatch 10/16/16 10/16/16 10/16/16 05:44 06:25 06:25 WBC 22.5 H RBC 2.76 L Hgb 8.3 L Hct 25.2 L MCV MCH MCHC RDW 18.3 H Plt Count Lymph % (Auto) [place] % (Auto) Lymph # [place] # Baso # Seg Neutrophils % Seg Neuts % (Manual) Lymphocytes % (Manual) Monocytes % (Manual) Eosinophils % (Manual) Basophils % (Manual) Nucleated RBC % Seg Neutrophils # Seg Neutrophils # Man Lymphocytes # (Manual) Monocytes # (Manual) Eosinophils # (Manual) Basophils # (Manual) PT INR Fibrinogen dRVVT Confirm Interp Factor V Activity POC ABG pH POC ABG pCO2 POC ABG pO2 ABG pO2 ABG HCO3 ABG Base Excess ABG Hemoglobin Oxyhemoglobin Sodium Potassium Chloride Carbon Dioxide BUN 92 H Creatinine 3.0 H Glucose 138 H POC Glucose 110 H Lactic Acid Calcium Ionized Calcium Phosphorus Magnesium Direct Bilirubin AST ALT Alkaline Phosphatase Lactate Dehydrogenase Troponin T C-Reactive Protein Total Protein Albumin Prealbumin Triglycerides Cholesterol LDL Cholesterol Direct HDL Cholesterol 25-OH Vitamin D Total PTH Intact Urine pH Urine WBC (Auto) Urine Creatinine Urine Total Protein Fluid Total Protein Vancomycin Trough Rheumatoid Factor Complement C4 Miscellaneous Test Crossmatch 10/16/16 10/16/16 10/16/16 11:27 11:48 17:36 WBC RBC Hgb Hct MCV MCH MCHC RDW Plt Count Lymph % (Auto) [place] % (Auto) Lymph # [place] # Baso # Seg Neutrophils % Seg Neuts % (Manual) Lymphocytes % (Manual) Monocytes % (Manual) Eosinophils % (Manual) Basophils % (Manual) Nucleated RBC % Seg Neutrophils # Seg Neutrophils # Man Lymphocytes # (Manual) Monocytes # (Manual) Eosinophils # (Manual) Basophils # (Manual) PT INR Fibrinogen dRVVT Confirm Interp Factor V Activity POC ABG pH 7.582 H POC ABG pCO2 27.4 L POC ABG pO2 110 H ABG pO2 ABG HCO3 ABG Base Excess ABG Hemoglobin Oxyhemoglobin Sodium Potassium Chloride Carbon Dioxide BUN Creatinine Glucose POC Glucose 121 H 133 H Lactic Acid Calcium Ionized Calcium Phosphorus Magnesium Direct Bilirubin AST ALT Alkaline Phosphatase Lactate Dehydrogenase Troponin T C-Reactive Protein Total Protein Albumin Prealbumin Triglycerides Cholesterol LDL Cholesterol Direct HDL Cholesterol 25-OH Vitamin D Total PTH Intact Urine pH Urine WBC (Auto) Urine Creatinine Urine Total Protein Fluid Total Protein Vancomycin Trough Rheumatoid Factor Complement C4 Miscellaneous Test Crossmatch 10/16/16 10/17/16 10/17/16 20:48 04:24 04:24 WBC 21.4 H RBC 2.72 L Hgb 8.0 L Hct 25.2 L MCV MCH MCHC RDW 18.0 H Plt Count Lymph % (Auto) [place] % (Auto) Lymph # [place] # Baso # Seg Neutrophils % Seg Neuts % (Manual) Lymphocytes % (Manual) Monocytes % (Manual) Eosinophils % (Manual) Basophils % (Manual) Nucleated RBC % Seg Neutrophils # Seg Neutrophils # Man Lymphocytes # (Manual) Monocytes # (Manual) Eosinophils # (Manual) Basophils # (Manual) PT INR Fibrinogen dRVVT Confirm Interp Factor V Activity POC ABG pH 7.561 H POC ABG pCO2 24.4 L POC ABG pO2 77 L ABG pO2 ABG HCO3 ABG Base Excess ABG Hemoglobin Oxyhemoglobin Sodium 148 H Potassium Chloride Carbon Dioxide BUN 104 H Creatinine 3.0 H Glucose 149 H POC Glucose Lactic Acid Calcium Ionized Calcium Phosphorus Magnesium Direct Bilirubin AST ALT Alkaline Phosphatase 138 H Lactate Dehydrogenase Troponin T C-Reactive Protein Total Protein 6.2 L Albumin 1.5 L Prealbumin Triglycerides Cholesterol LDL Cholesterol Direct HDL Cholesterol 25-OH Vitamin D Total PTH Intact Urine pH Urine WBC (Auto) Urine Creatinine Urine Total Protein Fluid Total Protein Vancomycin Trough Rheumatoid Factor Complement C4 Miscellaneous Test Crossmatch 10/17/16 10/17/16 10/17/16 06:02 12:17 17:14 WBC RBC Hgb Hct MCV MCH MCHC RDW Plt Count Lymph % (Auto) [place] % (Auto) Lymph # [place] # Baso # Seg Neutrophils % Seg Neuts % (Manual) Lymphocytes % (Manual) Monocytes % (Manual) Eosinophils % (Manual) Basophils % (Manual) Nucleated RBC % Seg Neutrophils # Seg Neutrophils # Man Lymphocytes # (Manual) Monocytes # (Manual) Eosinophils # (Manual) Basophils # (Manual) PT INR Fibrinogen dRVVT Confirm Interp Factor V Activity POC ABG pH POC ABG pCO2 POC ABG pO2 ABG pO2 ABG HCO3 ABG Base Excess ABG Hemoglobin Oxyhemoglobin Sodium Potassium Chloride Carbon Dioxide BUN Creatinine Glucose POC Glucose 170 H 167 H 126 H Lactic Acid Calcium Ionized Calcium Phosphorus Magnesium Direct Bilirubin AST ALT Alkaline Phosphatase Lactate Dehydrogenase Troponin T C-Reactive Protein Total Protein Albumin Prealbumin Triglycerides Cholesterol LDL Cholesterol Direct HDL Cholesterol 25-OH Vitamin D Total PTH Intact Urine pH Urine WBC (Auto) Urine Creatinine Urine Total Protein Fluid Total Protein Vancomycin Trough Rheumatoid Factor Complement C4 Miscellaneous Test Crossmatch 10/17/16 10/18/16 10/18/16 23:17 04:00 04:00 WBC 20.7 H RBC 2.47 L Hgb 7.4 L Hct 22.9 L MCV MCH MCHC RDW 17.5 H Plt Count Lymph % (Auto) [place] % (Auto) Lymph # [place] # Baso # Seg Neutrophils % Seg Neuts % (Manual) Lymphocytes % (Manual) Monocytes % (Manual) Eosinophils % (Manual) Basophils % (Manual) Nucleated RBC % Seg Neutrophils # Seg Neutrophils # Man Lymphocytes # (Manual) Monocytes # (Manual) Eosinophils # (Manual) Basophils # (Manual) PT INR Fibrinogen dRVVT Confirm Interp Factor V Activity POC ABG pH POC ABG pCO2 POC ABG pO2 ABG pO2 ABG HCO3 ABG Base Excess ABG Hemoglobin Oxyhemoglobin Sodium 149 H Potassium Chloride 107.9 H Carbon Dioxide 20 L BUN 117 H Creatinine 3.2 H Glucose 119 H POC Glucose 121 H Lactic Acid Calcium Ionized Calcium Phosphorus Magnesium Direct Bilirubin AST ALT Alkaline Phosphatase Lactate Dehydrogenase Troponin T C-Reactive Protein Total Protein Albumin Prealbumin Triglycerides Cholesterol LDL Cholesterol Direct HDL Cholesterol 25-OH Vitamin D Total PTH Intact Urine pH Urine WBC (Auto) Urine Creatinine Urine Total Protein Fluid Total Protein Vancomycin Trough Rheumatoid Factor Complement C4 Miscellaneous Test Crossmatch 10/18/16 10/18/16 10/18/16 05:23 10:46 17:30 WBC RBC Hgb Hct MCV MCH MCHC RDW Plt Count Lymph % (Auto) [place] % (Auto) Lymph # [place] # Baso # Seg Neutrophils % Seg Neuts % (Manual) Lymphocytes % (Manual) Monocytes % (Manual) Eosinophils % (Manual) Basophils % (Manual) Nucleated RBC % Seg Neutrophils # Seg Neutrophils # Man Lymphocytes # (Manual) Monocytes # (Manual) Eosinophils # (Manual) Basophils # (Manual) PT INR Fibrinogen dRVVT Confirm Interp Factor V Activity POC ABG pH POC ABG pCO2 POC ABG pO2 ABG pO2 ABG HCO3 ABG Base Excess ABG Hemoglobin Oxyhemoglobin Sodium Potassium Chloride Carbon Dioxide BUN Creatinine Glucose POC Glucose 119 H 155 H 124 H Lactic Acid Calcium Ionized Calcium Phosphorus Magnesium Direct Bilirubin AST ALT Alkaline Phosphatase Lactate Dehydrogenase Troponin T C-Reactive Protein Total Protein Albumin Prealbumin Triglycerides Cholesterol LDL Cholesterol Direct HDL Cholesterol 25-OH Vitamin D Total PTH Intact Urine pH Urine WBC (Auto) Urine Creatinine Urine Total Protein Fluid Total Protein Vancomycin Trough Rheumatoid Factor Complement C4 Miscellaneous Test Crossmatch 10/19/16 10/19/16 10/19/16 04:00 04:00 05:25 WBC 17.4 H RBC 2.54 L Hgb 7.7 L Hct 23.6 L MCV MCH MCHC RDW 17.3 H Plt Count Lymph % (Auto) [place] % (Auto) Lymph # [place] # Baso # Seg Neutrophils % Seg Neuts % (Manual) Lymphocytes % (Manual) Monocytes % (Manual) Eosinophils % (Manual) Basophils % (Manual) Nucleated RBC % Seg Neutrophils # Seg Neutrophils # Man Lymphocytes # (Manual) Monocytes # (Manual) Eosinophils # (Manual) Basophils # (Manual) PT INR Fibrinogen dRVVT Confirm Interp Factor V Activity POC ABG pH POC ABG pCO2 POC ABG pO2 ABG pO2 ABG HCO3 ABG Base Excess ABG Hemoglobin Oxyhemoglobin Sodium Potassium Chloride Carbon Dioxide BUN 72 H Creatinine 2.1 H Glucose 116 H POC Glucose 119 H Lactic Acid Calcium Ionized Calcium Phosphorus Magnesium Direct Bilirubin AST ALT Alkaline Phosphatase Lactate Dehydrogenase Troponin T C-Reactive Protein Total Protein Albumin Prealbumin Triglycerides Cholesterol LDL Cholesterol Direct HDL Cholesterol 25-OH Vitamin D Total PTH Intact Urine pH Urine WBC (Auto) Urine Creatinine Urine Total Protein Fluid Total Protein Vancomycin Trough Rheumatoid Factor Complement C4 Miscellaneous Test Crossmatch 10/19/16 10/19/16 10/20/16 11:46 23:59 06:00 WBC RBC Hgb Hct MCV MCH MCHC RDW Plt Count Lymph % (Auto) [place] % (Auto) Lymph # [place] # Baso # Seg Neutrophils % Seg Neuts % (Manual) Lymphocytes % (Manual) Monocytes % (Manual) Eosinophils % (Manual) Basophils % (Manual) Nucleated RBC % Seg Neutrophils # Seg Neutrophils # Man Lymphocytes # (Manual) Monocytes # (Manual) Eosinophils # (Manual) Basophils # (Manual) PT INR Fibrinogen dRVVT Confirm Interp Factor V Activity POC ABG pH POC ABG pCO2 POC ABG pO2 ABG pO2 ABG HCO3 ABG Base Excess ABG Hemoglobin Oxyhemoglobin Sodium Potassium Chloride Carbon Dioxide 17 L BUN 94 H Creatinine 2.7 H Glucose POC Glucose 116 H 117 H Lactic Acid Calcium Ionized Calcium Phosphorus Magnesium Direct Bilirubin AST ALT Alkaline Phosphatase Lactate Dehydrogenase Troponin T C-Reactive Protein Total Protein Albumin Prealbumin Triglycerides Cholesterol LDL Cholesterol Direct HDL Cholesterol 25-OH Vitamin D Total PTH Intact Urine pH Urine WBC (Auto) Urine Creatinine Urine Total Protein Fluid Total Protein Vancomycin Trough Rheumatoid Factor Complement C4 Miscellaneous Test Crossmatch 10/20/16 10/20/16 10/20/16 06:00 11:49 16:00 WBC 19.7 H RBC 2.51 L Hgb 7.7 L Hct 23.5 L MCV MCH MCHC RDW 17.5 H Plt Count Lymph % (Auto) [place] % (Auto) Lymph # [place] # Baso # Seg Neutrophils % Seg Neuts % (Manual) Lymphocytes % (Manual) Monocytes % (Manual) Eosinophils % (Manual) Basophils % (Manual) Nucleated RBC % Seg Neutrophils # Seg Neutrophils # Man Lymphocytes # (Manual) Monocytes # (Manual) Eosinophils # (Manual) Basophils # (Manual) PT INR Fibrinogen dRVVT Confirm Interp Factor V Activity POC ABG pH POC ABG pCO2 POC ABG pO2 ABG pO2 ABG HCO3 ABG Base Excess ABG Hemoglobin Oxyhemoglobin Sodium Potassium Chloride Carbon Dioxide BUN Creatinine Glucose POC Glucose 117 H Lactic Acid Calcium Ionized Calcium Phosphorus Magnesium Direct Bilirubin AST ALT Alkaline Phosphatase Lactate Dehydrogenase Troponin T C-Reactive Protein Total Protein Albumin Prealbumin Triglycerides Cholesterol LDL Cholesterol Direct HDL Cholesterol 25-OH Vitamin D Total PTH Intact Urine pH Urine WBC (Auto) Urine Creatinine Urine Total Protein Fluid Total Protein Vancomycin Trough Rheumatoid Factor Complement C4 Miscellaneous Test Flexitest 1 H Crossmatch 10/20/16 10/20/16 10/21/16 18:36 23:39 04:00 WBC RBC Hgb Hct MCV MCH MCHC RDW Plt Count Lymph % (Auto) [place] % (Auto) Lymph # [place] # Baso # Seg Neutrophils % Seg Neuts % (Manual) Lymphocytes % (Manual) Monocytes % (Manual) Eosinophils % (Manual) Basophils % (Manual) Nucleated RBC % Seg Neutrophils # Seg Neutrophils # Man Lymphocytes # (Manual) Monocytes # (Manual) Eosinophils # (Manual) Basophils # (Manual) PT INR Fibrinogen dRVVT Confirm Interp Factor V Activity POC ABG pH POC ABG pCO2 POC ABG pO2 ABG pO2 ABG HCO3 ABG Base Excess ABG Hemoglobin Oxyhemoglobin Sodium Potassium 5.4 H D Chloride Carbon Dioxide 15 L BUN 110 H Creatinine 3.0 H Glucose POC Glucose 127 H 114 H Lactic Acid Calcium Ionized Calcium Phosphorus Magnesium Direct Bilirubin AST ALT Alkaline Phosphatase Lactate Dehydrogenase Troponin T C-Reactive Protein Total Protein Albumin Prealbumin Triglycerides Cholesterol LDL Cholesterol Direct HDL Cholesterol 25-OH Vitamin D Total PTH Intact Urine pH Urine WBC (Auto) Urine Creatinine Urine Total Protein Fluid Total Protein Vancomycin Trough Rheumatoid Factor Complement C4 Miscellaneous Test Crossmatch 10/21/16 10/21/16 10/22/16 05:54 23:46 05:18 WBC RBC Hgb Hct MCV MCH MCHC RDW Plt Count Lymph % (Auto) [place] % (Auto) Lymph # [place] # Baso # Seg Neutrophils % Seg Neuts % (Manual) Lymphocytes % (Manual) Monocytes % (Manual) Eosinophils % (Manual) Basophils % (Manual) Nucleated RBC % Seg Neutrophils # Seg Neutrophils # Man Lymphocytes # (Manual) Monocytes # (Manual) Eosinophils # (Manual) Basophils # (Manual) PT INR Fibrinogen dRVVT Confirm Interp Factor V Activity POC ABG pH POC ABG pCO2 POC ABG pO2 ABG pO2 ABG HCO3 ABG Base Excess ABG Hemoglobin Oxyhemoglobin Sodium Potassium Chloride Carbon Dioxide BUN Creatinine Glucose POC Glucose 119 H 108 H 109 H Lactic Acid Calcium Ionized Calcium Phosphorus Magnesium Direct Bilirubin AST ALT Alkaline Phosphatase Lactate Dehydrogenase Troponin T C-Reactive Protein Total Protein Albumin Prealbumin Triglycerides Cholesterol LDL Cholesterol Direct HDL Cholesterol 25-OH Vitamin D Total PTH Intact Urine pH Urine WBC (Auto) Urine Creatinine Urine Total Protein Fluid Total Protein Vancomycin Trough Rheumatoid Factor Complement C4 Miscellaneous Test Crossmatch 10/22/16 10/22/16 10/22/16 06:40 06:40 06:40 WBC 14.0 H RBC 2.03 L Hgb 7.0 L Hct 20.5 L MCV 98 H MCH 34 H MCHC 35 H RDW 17.8 H Plt Count Lymph % (Auto) [place] % (Auto) 9.9 H Lymph # [place] # 1.4 H Baso # 0.2 H Seg Neutrophils % 72.0 H Seg Neuts % (Manual) Lymphocytes % (Manual) Monocytes % (Manual) Eosinophils % (Manual) Basophils % (Manual) Nucleated RBC % Seg Neutrophils # 10.0 H Seg Neutrophils # Man Lymphocytes # (Manual) Monocytes # (Manual) Eosinophils # (Manual) Basophils # (Manual) PT INR Fibrinogen dRVVT Confirm Interp Factor V Activity POC ABG pH POC ABG pCO2 POC ABG pO2 ABG pO2 ABG HCO3 ABG Base Excess ABG Hemoglobin Oxyhemoglobin Sodium 130 L D Potassium Chloride 92.4 L Carbon Dioxide 20 L BUN 50 H Creatinine 1.6 H Glucose 589 H* POC Glucose Lactic Acid Calcium 7.8 L D Ionized Calcium Phosphorus Magnesium 1.60 L Direct Bilirubin AST ALT Alkaline Phosphatase Lactate Dehydrogenase Troponin T C-Reactive Protein Total Protein Albumin Prealbumin Triglycerides Cholesterol LDL Cholesterol Direct HDL Cholesterol 25-OH Vitamin D Total PTH Intact Urine pH Urine WBC (Auto) Urine Creatinine Urine Total Protein Fluid Total Protein Vancomycin Trough Rheumatoid Factor Complement C4 Miscellaneous Test Crossmatch 10/22/16 10/22/16 10/22/16 11:39 16:44 23:36 WBC RBC Hgb Hct MCV MCH MCHC RDW Plt Count Lymph % (Auto) [place] % (Auto) Lymph # [place] # Baso # Seg Neutrophils % Seg Neuts % (Manual) Lymphocytes % (Manual) Monocytes % (Manual) Eosinophils % (Manual) Basophils % (Manual) Nucleated RBC % Seg Neutrophils # Seg Neutrophils # Man Lymphocytes # (Manual) Monocytes # (Manual) Eosinophils # (Manual) Basophils # (Manual) PT INR Fibrinogen dRVVT Confirm Interp Factor V Activity POC ABG pH POC ABG pCO2 POC ABG pO2 ABG pO2 ABG HCO3 ABG Base Excess ABG Hemoglobin Oxyhemoglobin Sodium Potassium Chloride Carbon Dioxide BUN Creatinine Glucose POC Glucose 142 H 163 H 123 H Lactic Acid Calcium Ionized Calcium Phosphorus Magnesium Direct Bilirubin AST ALT Alkaline Phosphatase Lactate Dehydrogenase Troponin T C-Reactive Protein Total Protein Albumin Prealbumin Triglycerides Cholesterol LDL Cholesterol Direct HDL Cholesterol 25-OH Vitamin D Total PTH Intact Urine pH Urine WBC (Auto) Urine Creatinine Urine Total Protein Fluid Total Protein Vancomycin Trough Rheumatoid Factor Complement C4 Miscellaneous Test Crossmatch 10/23/16 10/23/16 10/23/16 04:58 06:00 12:12 WBC RBC Hgb Hct MCV MCH MCHC RDW Plt Count Lymph % (Auto) [place] % (Auto) Lymph # [place] # Baso # Seg Neutrophils % Seg Neuts % (Manual) Lymphocytes % (Manual) Monocytes % (Manual) Eosinophils % (Manual) Basophils % (Manual) Nucleated RBC % Seg Neutrophils # Seg Neutrophils # Man Lymphocytes # (Manual) Monocytes # (Manual) Eosinophils # (Manual) Basophils # (Manual) PT INR Fibrinogen dRVVT Confirm Interp Factor V Activity POC ABG pH POC ABG pCO2 POC ABG pO2 ABG pO2 ABG HCO3 ABG Base Excess ABG Hemoglobin Oxyhemoglobin Sodium 133 L Potassium 3.5 L Chloride 96.1 L Carbon Dioxide 18 L BUN 76 H Creatinine 2.1 H Glucose POC Glucose 133 H 138 H Lactic Acid Calcium 8.3 L Ionized Calcium Phosphorus Magnesium Direct Bilirubin AST ALT Alkaline Phosphatase Lactate Dehydrogenase Troponin T C-Reactive Protein Total Protein Albumin Prealbumin Triglycerides Cholesterol LDL Cholesterol Direct HDL Cholesterol 25-OH Vitamin D Total PTH Intact Urine pH Urine WBC (Auto) Urine Creatinine Urine Total Protein Fluid Total Protein Vancomycin Trough Rheumatoid Factor Complement C4 Miscellaneous Test Crossmatch 10/23/16 10/23/16 10/24/16 16:53 23:37 04:00 WBC RBC Hgb Hct MCV MCH MCHC RDW Plt Count Lymph % (Auto) [place] % (Auto) Lymph # [place] # Baso # Seg Neutrophils % Seg Neuts % (Manual) Lymphocytes % (Manual) Monocytes % (Manual) Eosinophils % (Manual) Basophils % (Manual) Nucleated RBC % Seg Neutrophils # Seg Neutrophils # Man Lymphocytes # (Manual) Monocytes # (Manual) Eosinophils # (Manual) Basophils # (Manual) PT INR Fibrinogen dRVVT Confirm Interp Factor V Activity POC ABG pH POC ABG pCO2 POC ABG pO2 ABG pO2 ABG HCO3 ABG Base Excess ABG Hemoglobin Oxyhemoglobin Sodium 131 L Potassium Chloride 94.5 L Carbon Dioxide 19 L BUN 97 H Creatinine 2.6 H Glucose 110 H POC Glucose 125 H 123 H Lactic Acid Calcium 8.3 L Ionized Calcium Phosphorus Magnesium Direct Bilirubin AST ALT Alkaline Phosphatase Lactate Dehydrogenase Troponin T C-Reactive Protein Total Protein Albumin Prealbumin Triglycerides Cholesterol LDL Cholesterol Direct HDL Cholesterol 25-OH Vitamin D Total PTH Intact Urine pH Urine WBC (Auto) Urine Creatinine Urine Total Protein Fluid Total Protein Vancomycin Trough Rheumatoid Factor Complement C4 Miscellaneous Test Crossmatch 10/24/16 10/24/16 10/24/16 07:49 11:39 17:52 WBC RBC Hgb 6.0 L Hct 19.7 L* MCV MCH MCHC RDW Plt Count Lymph % (Auto) [place] % (Auto) Lymph # [place] # Baso # Seg Neutrophils % Seg Neuts % (Manual) Lymphocytes % (Manual) Monocytes % (Manual) Eosinophils % (Manual) Basophils % (Manual) Nucleated RBC % Seg Neutrophils # Seg Neutrophils # Man Lymphocytes # (Manual) Monocytes # (Manual) Eosinophils # (Manual) Basophils # (Manual) PT INR Fibrinogen dRVVT Confirm Interp Factor V Activity POC ABG pH POC ABG pCO2 POC ABG pO2 ABG pO2 ABG HCO3 ABG Base Excess ABG Hemoglobin Oxyhemoglobin Sodium Potassium Chloride Carbon Dioxide BUN Creatinine Glucose POC Glucose 106 H 158 H Lactic Acid Calcium Ionized Calcium Phosphorus Magnesium Direct Bilirubin AST ALT Alkaline Phosphatase Lactate Dehydrogenase Troponin T C-Reactive Protein Total Protein Albumin Prealbumin Triglycerides Cholesterol LDL Cholesterol Direct HDL Cholesterol 25-OH Vitamin D Total PTH Intact Urine pH Urine WBC (Auto) Urine Creatinine Urine Total Protein Fluid Total Protein Vancomycin Trough Rheumatoid Factor Complement C4 Miscellaneous Test Crossmatch 10/24/16 10/24/16 10/24/16 20:00 22:27 Unknown WBC RBC Hgb 9.4 L D Hct 27.5 L D MCV MCH MCHC RDW Plt Count Lymph % (Auto) [place] % (Auto) Lymph # [place] # Baso # Seg Neutrophils % Seg Neuts % (Manual) Lymphocytes % (Manual) Monocytes % (Manual) Eosinophils % (Manual) Basophils % (Manual) Nucleated RBC % Seg Neutrophils # Seg Neutrophils # Man Lymphocytes # (Manual) Monocytes # (Manual) Eosinophils # (Manual) Basophils # (Manual) PT INR Fibrinogen dRVVT Confirm Interp Factor V Activity POC ABG pH POC ABG pCO2 POC ABG pO2 ABG pO2 ABG HCO3 ABG Base Excess ABG Hemoglobin Oxyhemoglobin Sodium Potassium Chloride Carbon Dioxide BUN Creatinine Glucose POC Glucose 125 H Lactic Acid Calcium Ionized Calcium Phosphorus Magnesium Direct Bilirubin AST ALT Alkaline Phosphatase Lactate Dehydrogenase Troponin T C-Reactive Protein Total Protein Albumin Prealbumin Triglycerides Cholesterol LDL Cholesterol Direct HDL Cholesterol 25-OH Vitamin D Total PTH Intact Urine pH Urine WBC (Auto) Urine Creatinine Urine Total Protein Fluid Total Protein Vancomycin Trough Rheumatoid Factor Complement C4 Miscellaneous Test Crossmatch See Detail 10/25/16 10/25/16 10/25/16 04:00 04:00 04:00 WBC 14.2 H RBC 2.98 L Hgb 9.0 L Hct 26.2 L MCV MCH MCHC RDW 16.6 H Plt Count Lymph % (Auto) [place] % (Auto) 10.7 H Lymph # [place] # 1.5 H Baso # Seg Neutrophils % 73.6 H Seg Neuts % (Manual) Lymphocytes % (Manual) Monocytes % (Manual) Eosinophils % (Manual) Basophils % (Manual) Nucleated RBC % Seg Neutrophils # 10.5 H Seg Neutrophils # Man Lymphocytes # (Manual) Monocytes # (Manual) Eosinophils # (Manual) Basophils # (Manual) PT INR Fibrinogen dRVVT Confirm Interp Factor V Activity POC ABG pH POC ABG pCO2 POC ABG pO2 ABG pO2 ABG HCO3 ABG Base Excess ABG Hemoglobin Oxyhemoglobin Sodium 132 L Potassium Chloride 94.7 L Carbon Dioxide BUN 51 H Creatinine 1.6 H Glucose 130 H POC Glucose Lactic Acid Calcium 8.3 L Ionized Calcium Phosphorus 1.60 L D Magnesium Direct Bilirubin AST ALT Alkaline Phosphatase Lactate Dehydrogenase Troponin T C-Reactive Protein Total Protein Albumin Prealbumin Triglycerides Cholesterol LDL Cholesterol Direct HDL Cholesterol 25-OH Vitamin D Total PTH Intact Urine pH Urine WBC (Auto) Urine Creatinine Urine Total Protein Fluid Total Protein Vancomycin Trough Rheumatoid Factor Complement C4 Miscellaneous Test Crossmatch 10/25/16 10/25/16 10/25/16 04:32 11:48 17:22 WBC RBC Hgb Hct MCV MCH MCHC RDW Plt Count Lymph % (Auto) [place] % (Auto) Lymph # [place] # Baso # Seg Neutrophils % Seg Neuts % (Manual) Lymphocytes % (Manual) Monocytes % (Manual) Eosinophils % (Manual) Basophils % (Manual) Nucleated RBC % Seg Neutrophils # Seg Neutrophils # Man Lymphocytes # (Manual) Monocytes # (Manual) Eosinophils # (Manual) Basophils # (Manual) PT INR Fibrinogen dRVVT Confirm Interp Factor V Activity POC ABG pH POC ABG pCO2 POC ABG pO2 ABG pO2 ABG HCO3 ABG Base Excess ABG Hemoglobin Oxyhemoglobin Sodium Potassium Chloride Carbon Dioxide BUN Creatinine Glucose POC Glucose 124 H 171 H 120 H Lactic Acid Calcium Ionized Calcium Phosphorus Magnesium Direct Bilirubin AST ALT Alkaline Phosphatase Lactate Dehydrogenase Troponin T C-Reactive Protein Total Protein Albumin Prealbumin Triglycerides Cholesterol LDL Cholesterol Direct HDL Cholesterol 25-OH Vitamin D Total PTH Intact Urine pH Urine WBC (Auto) Urine Creatinine Urine Total Protein Fluid Total Protein Vancomycin Trough Rheumatoid Factor Complement C4 Miscellaneous Test Crossmatch 10/26/16 10/26/16 10/26/16 04:54 07:06 07:06 WBC 16.9 H RBC 3.06 L Hgb 9.1 L Hct 26.9 L MCV MCH MCHC RDW 16.9 H Plt Count Lymph % (Auto) [place] % (Auto) Lymph # [place] # Baso # Seg Neutrophils % Seg Neuts % (Manual) 71.0 H Lymphocytes % (Manual) 5.0 L Monocytes % (Manual) 12.0 H Eosinophils % (Manual) Basophils % (Manual) Nucleated RBC % Seg Neutrophils # Seg Neutrophils # Man 12.0 H Lymphocytes # (Manual) 0.8 L Monocytes # (Manual) 2.0 H Eosinophils # (Manual) Basophils # (Manual) PT INR Fibrinogen dRVVT Confirm Interp Factor V Activity POC ABG pH POC ABG pCO2 POC ABG pO2 ABG pO2 ABG HCO3 ABG Base Excess ABG Hemoglobin Oxyhemoglobin Sodium 135 L Potassium Chloride 97.1 L Carbon Dioxide BUN 73 H Creatinine 2.2 H Glucose 117 H POC Glucose 123 H Lactic Acid Calcium Ionized Calcium Phosphorus 1.70 L Magnesium Direct Bilirubin AST ALT Alkaline Phosphatase Lactate Dehydrogenase Troponin T C-Reactive Protein Total Protein Albumin Prealbumin Triglycerides Cholesterol LDL Cholesterol Direct HDL Cholesterol 25-OH Vitamin D Total PTH Intact Urine pH Urine WBC (Auto) Urine Creatinine Urine Total Protein Fluid Total Protein Vancomycin Trough Rheumatoid Factor Complement C4 Miscellaneous Test Crossmatch 10/26/16 10/26/16 10/26/16 12:12 17:29 23:42 WBC RBC Hgb Hct MCV MCH MCHC RDW Plt Count Lymph % (Auto) [place] % (Auto) Lymph # [place] # Baso # Seg Neutrophils % Seg Neuts % (Manual) Lymphocytes % (Manual) Monocytes % (Manual) Eosinophils % (Manual) Basophils % (Manual) Nucleated RBC % Seg Neutrophils # Seg Neutrophils # Man Lymphocytes # (Manual) Monocytes # (Manual) Eosinophils # (Manual) Basophils # (Manual) PT INR Fibrinogen dRVVT Confirm Interp Factor V Activity POC ABG pH POC ABG pCO2 POC ABG pO2 ABG pO2 ABG HCO3 ABG Base Excess ABG Hemoglobin Oxyhemoglobin Sodium Potassium Chloride Carbon Dioxide BUN Creatinine Glucose POC Glucose 126 H 161 H 118 H Lactic Acid Calcium Ionized Calcium Phosphorus Magnesium Direct Bilirubin AST ALT Alkaline Phosphatase Lactate Dehydrogenase Troponin T C-Reactive Protein Total Protein Albumin Prealbumin Triglycerides Cholesterol LDL Cholesterol Direct HDL Cholesterol 25-OH Vitamin D Total PTH Intact Urine pH Urine WBC (Auto) Urine Creatinine Urine Total Protein Fluid Total Protein Vancomycin Trough Rheumatoid Factor Complement C4 Miscellaneous Test Crossmatch 10/27/16 10/27/16 10/27/16 05:03 06:30 06:30 WBC 13.9 H RBC 3.09 L Hgb 9.2 L Hct 27.5 L MCV MCH MCHC RDW 17.0 H Plt Count Lymph % (Auto) [place] % (Auto) Lymph # [place] # Baso # Seg Neutrophils % Seg Neuts % (Manual) 78.0 H Lymphocytes % (Manual) Monocytes % (Manual) Eosinophils % (Manual) Basophils % (Manual) Nucleated RBC % 2.0 H Seg Neutrophils # Seg Neutrophils # Man 10.8 H Lymphocytes # (Manual) Monocytes # (Manual) 1.0 H Eosinophils # (Manual) Basophils # (Manual) PT INR Fibrinogen dRVVT Confirm Interp Factor V Activity POC ABG pH POC ABG pCO2 POC ABG pO2 ABG pO2 ABG HCO3 ABG Base Excess ABG Hemoglobin Oxyhemoglobin Sodium Potassium Chloride Carbon Dioxide BUN 40 H Creatinine 1.5 H Glucose 135 H POC Glucose 107 H Lactic Acid Calcium 8.3 L Ionized Calcium Phosphorus 1.30 L D Magnesium Direct Bilirubin AST ALT Alkaline Phosphatase Lactate Dehydrogenase Troponin T C-Reactive Protein Total Protein Albumin Prealbumin Triglycerides Cholesterol LDL Cholesterol Direct HDL Cholesterol 25-OH Vitamin D Total PTH Intact Urine pH Urine WBC (Auto) Urine Creatinine Urine Total Protein Fluid Total Protein Vancomycin Trough Rheumatoid Factor Complement C4 Miscellaneous Test Crossmatch 10/27/16 10/27/16 10/27/16 13:27 18:07 23:40 WBC RBC Hgb Hct MCV MCH MCHC RDW Plt Count Lymph % (Auto) [place] % (Auto) Lymph # [place] # Baso # Seg Neutrophils % Seg Neuts % (Manual) Lymphocytes % (Manual) Monocytes % (Manual) Eosinophils % (Manual) Basophils % (Manual) Nucleated RBC % Seg Neutrophils # Seg Neutrophils # Man Lymphocytes # (Manual) Monocytes # (Manual) Eosinophils # (Manual) Basophils # (Manual) PT INR Fibrinogen dRVVT Confirm Interp Factor V Activity POC ABG pH POC ABG pCO2 POC ABG pO2 ABG pO2 ABG HCO3 ABG Base Excess ABG Hemoglobin Oxyhemoglobin Sodium Potassium Chloride Carbon Dioxide BUN Creatinine Glucose POC Glucose 117 H 121 H 118 H Lactic Acid Calcium Ionized Calcium Phosphorus Magnesium Direct Bilirubin AST ALT Alkaline Phosphatase Lactate Dehydrogenase Troponin T C-Reactive Protein Total Protein Albumin Prealbumin Triglycerides Cholesterol LDL Cholesterol Direct HDL Cholesterol 25-OH Vitamin D Total PTH Intact Urine pH Urine WBC (Auto) Urine Creatinine Urine Total Protein Fluid Total Protein Vancomycin Trough Rheumatoid Factor Complement C4 Miscellaneous Test Crossmatch 10/28/16 10/28/16 10/28/16 05:48 06:45 06:45 WBC 14.7 H RBC 3.05 L Hgb 9.0 L Hct 26.9 L MCV MCH MCHC RDW 16.8 H Plt Count Lymph % (Auto) 8.2 L [place] % (Auto) 8.4 H Lymph # [place] # 1.2 H Baso # Seg Neutrophils % 81.9 H Seg Neuts % (Manual) Lymphocytes % (Manual) Monocytes % (Manual) Eosinophils % (Manual) Basophils % (Manual) Nucleated RBC % Seg Neutrophils # 12.1 H Seg Neutrophils # Man Lymphocytes # (Manual) Monocytes # (Manual) Eosinophils # (Manual) Basophils # (Manual) PT INR Fibrinogen dRVVT Confirm Interp Factor V Activity POC ABG pH POC ABG pCO2 POC ABG pO2 ABG pO2 ABG HCO3 ABG Base Excess ABG Hemoglobin Oxyhemoglobin Sodium Potassium Chloride Carbon Dioxide BUN 60 H Creatinine 1.9 H Glucose 120 H POC Glucose 114 H Lactic Acid Calcium Ionized Calcium Phosphorus Magnesium Direct Bilirubin AST ALT Alkaline Phosphatase Lactate Dehydrogenase Troponin T C-Reactive Protein Total Protein Albumin Prealbumin Triglycerides Cholesterol LDL Cholesterol Direct HDL Cholesterol 25-OH Vitamin D Total PTH Intact Urine pH Urine WBC (Auto) Urine Creatinine Urine Total Protein Fluid Total Protein Vancomycin Trough Rheumatoid Factor Complement C4 Miscellaneous Test Crossmatch 10/28/16 10/28/16 10/29/16 17:08 23:50 05:10 WBC RBC Hgb Hct MCV MCH MCHC RDW Plt Count Lymph % (Auto) [place] % (Auto) Lymph # [place] # Baso # Seg Neutrophils % Seg Neuts % (Manual) Lymphocytes % (Manual) Monocytes % (Manual) Eosinophils % (Manual) Basophils % (Manual) Nucleated RBC % Seg Neutrophils # Seg Neutrophils # Man Lymphocytes # (Manual) Monocytes # (Manual) Eosinophils # (Manual) Basophils # (Manual) PT INR Fibrinogen dRVVT Confirm Interp Factor V Activity POC ABG pH POC ABG pCO2 POC ABG pO2 ABG pO2 ABG HCO3 ABG Base Excess ABG Hemoglobin Oxyhemoglobin Sodium Potassium Chloride Carbon Dioxide BUN Creatinine Glucose POC Glucose 109 H 110 H 124 H Lactic Acid Calcium Ionized Calcium Phosphorus Magnesium Direct Bilirubin AST ALT Alkaline Phosphatase Lactate Dehydrogenase Troponin T C-Reactive Protein Total Protein Albumin Prealbumin Triglycerides Cholesterol LDL Cholesterol Direct HDL Cholesterol 25-OH Vitamin D Total PTH Intact Urine pH Urine WBC (Auto) Urine Creatinine Urine Total Protein Fluid Total Protein Vancomycin Trough Rheumatoid Factor Complement C4 Miscellaneous Test Crossmatch 10/29/16 10/29/16 10/29/16 07:45 07:45 12:19 WBC 14.7 H RBC 3.15 L Hgb 9.3 L Hct 28.9 L MCV MCH MCHC RDW 17.0 H Plt Count Lymph % (Auto) 11.9 L [place] % (Auto) 8.6 H Lymph # [place] # 1.3 H Baso # Seg Neutrophils % 78.1 H Seg Neuts % (Manual) Lymphocytes % (Manual) Monocytes % (Manual) Eosinophils % (Manual) Basophils % (Manual) Nucleated RBC % Seg Neutrophils # 11.4 H Seg Neutrophils # Man Lymphocytes # (Manual) Monocytes # (Manual) Eosinophils # (Manual) Basophils # (Manual) PT INR Fibrinogen dRVVT Confirm Interp Factor V Activity POC ABG pH POC ABG pCO2 POC ABG pO2 ABG pO2 ABG HCO3 ABG Base Excess ABG Hemoglobin Oxyhemoglobin Sodium Potassium 5.1 H Chloride Carbon Dioxide 19 L BUN 78 H Creatinine 2.2 H Glucose 116 H POC Glucose 118 H Lactic Acid Calcium Ionized Calcium Phosphorus Magnesium Direct Bilirubin AST ALT Alkaline Phosphatase Lactate Dehydrogenase Troponin T C-Reactive Protein Total Protein Albumin Prealbumin Triglycerides Cholesterol LDL Cholesterol Direct HDL Cholesterol 25-OH Vitamin D Total PTH Intact Urine pH Urine WBC (Auto) Urine Creatinine Urine Total Protein Fluid Total Protein Vancomycin Trough Rheumatoid Factor Complement C4 Miscellaneous Test Crossmatch 10/29/16 10/30/16 10/30/16 17:49 01:52 03:28 WBC RBC Hgb Hct MCV MCH MCHC RDW Plt Count Lymph % (Auto) [place] % (Auto) Lymph # [place] # Baso # Seg Neutrophils % Seg Neuts % (Manual) Lymphocytes % (Manual) Monocytes % (Manual) Eosinophils % (Manual) Basophils % (Manual) Nucleated RBC % Seg Neutrophils # Seg Neutrophils # Man Lymphocytes # (Manual) Monocytes # (Manual) Eosinophils # (Manual) Basophils # (Manual) PT INR Fibrinogen dRVVT Confirm Interp Factor V Activity POC ABG pH POC ABG pCO2 POC ABG pO2 ABG pO2 ABG HCO3 ABG Base Excess ABG Hemoglobin Oxyhemoglobin Sodium Potassium 5.4 H Chloride 97.5 L Carbon Dioxide 19 L BUN 90 H Creatinine 2.5 H Glucose POC Glucose 120 H 129 H Lactic Acid Calcium Ionized Calcium Phosphorus 5.20 H Magnesium Direct Bilirubin AST ALT Alkaline Phosphatase Lactate Dehydrogenase Troponin T C-Reactive Protein Total Protein Albumin Prealbumin Triglycerides Cholesterol LDL Cholesterol Direct HDL Cholesterol 25-OH Vitamin D Total PTH Intact Urine pH Urine WBC (Auto) Urine Creatinine Urine Total Protein Fluid Total Protein Vancomycin Trough Rheumatoid Factor Complement C4 Miscellaneous Test Crossmatch 10/30/16 10/30/16 10/30/16 03:28 08:19 08:19 WBC 11.6 H 15.9 H RBC 2.75 L 2.82 L Hgb 7.9 L 8.3 L Hct 24.2 L 25.2 L MCV MCH MCHC RDW 16.7 H 17.2 H Plt Count Lymph % (Auto) [place] % (Auto) 9.8 H Lymph # [place] # 1.1 H Baso # Seg Neutrophils % 74.2 H Seg Neuts % (Manual) Lymphocytes % (Manual) Monocytes % (Manual) Eosinophils % (Manual) Basophils % (Manual) Nucleated RBC % Seg Neutrophils # 8.6 H Seg Neutrophils # Man Lymphocytes # (Manual) Monocytes # (Manual) Eosinophils # (Manual) Basophils # (Manual) PT INR Fibrinogen dRVVT Confirm Interp Factor V Activity POC ABG pH POC ABG pCO2 POC ABG pO2 ABG pO2 ABG HCO3 ABG Base Excess ABG Hemoglobin Oxyhemoglobin Sodium Potassium 5.3 H Chloride 97.4 L Carbon Dioxide 19 L BUN 93 H Creatinine 2.6 H Glucose POC Glucose Lactic Acid Calcium Ionized Calcium Phosphorus Magnesium Direct Bilirubin AST ALT Alkaline Phosphatase Lactate Dehydrogenase Troponin T C-Reactive Protein Total Protein Albumin Prealbumin Triglycerides Cholesterol LDL Cholesterol Direct HDL Cholesterol 25-OH Vitamin D Total PTH Intact Urine pH Urine WBC (Auto) Urine Creatinine Urine Total Protein Fluid Total Protein Vancomycin Trough Rheumatoid Factor Complement C4 Miscellaneous Test Crossmatch 10/30/16 10/30/16 10/31/16 17:11 23:56 00:40 WBC RBC Hgb Hct MCV MCH MCHC RDW Plt Count Lymph % (Auto) [place] % (Auto) Lymph # [place] # Baso # Seg Neutrophils % Seg Neuts % (Manual) Lymphocytes % (Manual) Monocytes % (Manual) Eosinophils % (Manual) Basophils % (Manual) Nucleated RBC % Seg Neutrophils # Seg Neutrophils # Man Lymphocytes # (Manual) Monocytes # (Manual) Eosinophils # (Manual) Basophils # (Manual) PT INR Fibrinogen dRVVT Confirm Interp Factor V Activity POC ABG pH POC ABG pCO2 POC ABG pO2 ABG pO2 ABG HCO3 ABG Base Excess ABG Hemoglobin Oxyhemoglobin Sodium Potassium Chloride Carbon Dioxide BUN Creatinine Glucose POC Glucose 106 H 117 H 120 H Lactic Acid Calcium Ionized Calcium Phosphorus Magnesium Direct Bilirubin AST ALT Alkaline Phosphatase Lactate Dehydrogenase Troponin T C-Reactive Protein Total Protein Albumin Prealbumin Triglycerides Cholesterol LDL Cholesterol Direct HDL Cholesterol 25-OH Vitamin D Total PTH Intact Urine pH Urine WBC (Auto) Urine Creatinine Urine Total Protein Fluid Total Protein Vancomycin Trough Rheumatoid Factor Complement C4 Miscellaneous Test Crossmatch 10/31/16 10/31/16 10/31/16 05:43 07:15 07:15 WBC 12.1 H RBC 2.63 L Hgb 7.7 L Hct 23.3 L MCV MCH MCHC RDW 16.7 H Plt Count Lymph % (Auto) 11.7 L [place] % (Auto) 7.7 H Lymph # [place] # 0.9 H Baso # Seg Neutrophils % 78.0 H Seg Neuts % (Manual) Lymphocytes % (Manual) Monocytes % (Manual) Eosinophils % (Manual) Basophils % (Manual) Nucleated RBC % Seg Neutrophils # 9.4 H Seg Neutrophils # Man Lymphocytes # (Manual) Monocytes # (Manual) Eosinophils # (Manual) Basophils # (Manual) PT INR Fibrinogen dRVVT Confirm Interp Factor V Activity POC ABG pH POC ABG pCO2 POC ABG pO2 ABG pO2 ABG HCO3 ABG Base Excess ABG Hemoglobin Oxyhemoglobin Sodium Potassium Chloride 96.4 L Carbon Dioxide 21 L BUN 99 H Creatinine 2.6 H Glucose 144 H POC Glucose 125 H Lactic Acid Calcium Ionized Calcium Phosphorus 4.80 H Magnesium Direct Bilirubin AST ALT Alkaline Phosphatase Lactate Dehydrogenase Troponin T C-Reactive Protein Total Protein Albumin Prealbumin Triglycerides Cholesterol LDL Cholesterol Direct HDL Cholesterol 25-OH Vitamin D Total PTH Intact Urine pH Urine WBC (Auto) Urine Creatinine Urine Total Protein Fluid Total Protein Vancomycin Trough Rheumatoid Factor Complement C4 Miscellaneous Test Crossmatch 10/31/16 10/31/16 11/01/16 11:46 18:34 00:20 WBC RBC Hgb Hct MCV MCH MCHC RDW Plt Count Lymph % (Auto) [place] % (Auto) Lymph # [place] # Baso # Seg Neutrophils % Seg Neuts % (Manual) Lymphocytes % (Manual) Monocytes % (Manual) Eosinophils % (Manual) Basophils % (Manual) Nucleated RBC % Seg Neutrophils # Seg Neutrophils # Man Lymphocytes # (Manual) Monocytes # (Manual) Eosinophils # (Manual) Basophils # (Manual) PT INR Fibrinogen dRVVT Confirm Interp Factor V Activity POC ABG pH POC ABG pCO2 POC ABG pO2 ABG pO2 ABG HCO3 ABG Base Excess ABG Hemoglobin Oxyhemoglobin Sodium Potassium Chloride Carbon Dioxide BUN Creatinine Glucose POC Glucose 159 H 140 H 132 H Lactic Acid Calcium Ionized Calcium Phosphorus Magnesium Direct Bilirubin AST ALT Alkaline Phosphatase Lactate Dehydrogenase Troponin T C-Reactive Protein Total Protein Albumin Prealbumin Triglycerides Cholesterol LDL Cholesterol Direct HDL Cholesterol 25-OH Vitamin D Total PTH Intact Urine pH Urine WBC (Auto) Urine Creatinine Urine Total Protein Fluid Total Protein Vancomycin Trough Rheumatoid Factor Complement C4 Miscellaneous Test Crossmatch 11/01/16 11/01/16 11/01/16 04:55 04:55 06:11 WBC 11.2 H RBC 2.68 L Hgb 7.5 L Hct 23.7 L MCV MCH MCHC RDW 16.1 H Plt Count Lymph % (Auto) [place] % (Auto) 9.8 H Lymph # [place] # 1.1 H Baso # Seg Neutrophils % 70.8 H Seg Neuts % (Manual) Lymphocytes % (Manual) Monocytes % (Manual) Eosinophils % (Manual) Basophils % (Manual) Nucleated RBC % Seg Neutrophils # 7.9 H Seg Neutrophils # Man Lymphocytes # (Manual) Monocytes # (Manual) Eosinophils # (Manual) Basophils # (Manual) PT INR Fibrinogen dRVVT Confirm Interp Factor V Activity POC ABG pH POC ABG pCO2 POC ABG pO2 ABG pO2 ABG HCO3 ABG Base Excess ABG Hemoglobin Oxyhemoglobin Sodium Potassium 3.3 L D Chloride Carbon Dioxide BUN 61 H Creatinine 1.9 H Glucose 114 H POC Glucose 115 H Lactic Acid Calcium Ionized Calcium Phosphorus 1.80 L D Magnesium Direct Bilirubin AST ALT Alkaline Phosphatase Lactate Dehydrogenase Troponin T C-Reactive Protein Total Protein Albumin Prealbumin Triglycerides Cholesterol LDL Cholesterol Direct HDL Cholesterol 25-OH Vitamin D Total PTH Intact Urine pH Urine WBC (Auto) Urine Creatinine Urine Total Protein Fluid Total Protein Vancomycin Trough Rheumatoid Factor Complement C4 Miscellaneous Test Crossmatch 11/01/16 11/01/16 11/01/16 12:29 18:23 23:58 WBC RBC Hgb Hct MCV MCH MCHC RDW Plt Count Lymph % (Auto) [place] % (Auto) Lymph # [place] # Baso # Seg Neutrophils % Seg Neuts % (Manual) Lymphocytes % (Manual) Monocytes % (Manual) Eosinophils % (Manual) Basophils % (Manual) Nucleated RBC % Seg Neutrophils # Seg Neutrophils # Man Lymphocytes # (Manual) Monocytes # (Manual) Eosinophils # (Manual) Basophils # (Manual) PT INR Fibrinogen dRVVT Confirm Interp Factor V Activity POC ABG pH POC ABG pCO2 POC ABG pO2 ABG pO2 ABG HCO3 ABG Base Excess ABG Hemoglobin Oxyhemoglobin Sodium Potassium Chloride Carbon Dioxide BUN Creatinine Glucose POC Glucose 142 H 143 H 128 H Lactic Acid Calcium Ionized Calcium Phosphorus Magnesium Direct Bilirubin AST ALT Alkaline Phosphatase Lactate Dehydrogenase Troponin T C-Reactive Protein Total Protein Albumin Prealbumin Triglycerides Cholesterol LDL Cholesterol Direct HDL Cholesterol 25-OH Vitamin D Total PTH Intact Urine pH Urine WBC (Auto) Urine Creatinine Urine Total Protein Fluid Total Protein Vancomycin Trough Rheumatoid Factor Complement C4 Miscellaneous Test Crossmatch 11/02/16 11/02/16 11/02/16 04:16 05:29 11:58 WBC RBC Hgb Hct MCV MCH MCHC RDW Plt Count Lymph % (Auto) [place] % (Auto) Lymph # [place] # Baso # Seg Neutrophils % Seg Neuts % (Manual) Lymphocytes % (Manual) Monocytes % (Manual) Eosinophils % (Manual) Basophils % (Manual) Nucleated RBC % Seg Neutrophils # Seg Neutrophils # Man Lymphocytes # (Manual) Monocytes # (Manual) Eosinophils # (Manual) Basophils # (Manual) PT INR Fibrinogen dRVVT Confirm Interp Factor V Activity POC ABG pH POC ABG pCO2 POC ABG pO2 ABG pO2 ABG HCO3 ABG Base Excess ABG Hemoglobin Oxyhemoglobin Sodium Potassium 3.1 L Chloride Carbon Dioxide BUN 73 H Creatinine 2.3 H Glucose 112 H POC Glucose 135 H 149 H Lactic Acid Calcium Ionized Calcium Phosphorus Magnesium Direct Bilirubin AST ALT Alkaline Phosphatase Lactate Dehydrogenase Troponin T C-Reactive Protein Total Protein Albumin Prealbumin Triglycerides Cholesterol LDL Cholesterol Direct HDL Cholesterol 25-OH Vitamin D Total PTH Intact Urine pH Urine WBC (Auto) Urine Creatinine Urine Total Protein Fluid Total Protein Vancomycin Trough Rheumatoid Factor Complement C4 Miscellaneous Test Crossmatch 11/02/16 11/02/16 11/03/16 17:42 22:54 06:00 WBC RBC Hgb Hct MCV MCH MCHC RDW Plt Count Lymph % (Auto) [place] % (Auto) Lymph # [place] # Baso # Seg Neutrophils % Seg Neuts % (Manual) Lymphocytes % (Manual) Monocytes % (Manual) Eosinophils % (Manual) Basophils % (Manual) Nucleated RBC % Seg Neutrophils # Seg Neutrophils # Man Lymphocytes # (Manual) Monocytes # (Manual) Eosinophils # (Manual) Basophils # (Manual) PT INR Fibrinogen dRVVT Confirm Interp Factor V Activity POC ABG pH POC ABG pCO2 POC ABG pO2 ABG pO2 ABG HCO3 ABG Base Excess ABG Hemoglobin Oxyhemoglobin Sodium Potassium Chloride 96.7 L Carbon Dioxide BUN 41 H Creatinine 1.5 H Glucose 145 H POC Glucose 182 H 115 H Lactic Acid Calcium Ionized Calcium Phosphorus 1.60 L D Magnesium 1.50 L Direct Bilirubin AST ALT Alkaline Phosphatase Lactate Dehydrogenase Troponin T C-Reactive Protein Total Protein Albumin Prealbumin Triglycerides Cholesterol LDL Cholesterol Direct HDL Cholesterol 25-OH Vitamin D Total PTH Intact Urine pH Urine WBC (Auto) Urine Creatinine Urine Total Protein Fluid Total Protein Vancomycin Trough Rheumatoid Factor Complement C4 Miscellaneous Test Crossmatch 11/03/16 11/03/16 11/03/16 11:53 17:45 23:37 WBC RBC Hgb Hct MCV MCH MCHC RDW Plt Count Lymph % (Auto) [place] % (Auto) Lymph # [place] # Baso # Seg Neutrophils % Seg Neuts % (Manual) Lymphocytes % (Manual) Monocytes % (Manual) Eosinophils % (Manual) Basophils % (Manual) Nucleated RBC % Seg Neutrophils # Seg Neutrophils # Man Lymphocytes # (Manual) Monocytes # (Manual) Eosinophils # (Manual) Basophils # (Manual) PT INR Fibrinogen dRVVT Confirm Interp Factor V Activity POC ABG pH POC ABG pCO2 POC ABG pO2 ABG pO2 ABG HCO3 ABG Base Excess ABG Hemoglobin Oxyhemoglobin Sodium Potassium Chloride Carbon Dioxide BUN Creatinine Glucose POC Glucose 131 H 134 H 113 H Lactic Acid Calcium Ionized Calcium Phosphorus Magnesium Direct Bilirubin AST ALT Alkaline Phosphatase Lactate Dehydrogenase Troponin T C-Reactive Protein Total Protein Albumin Prealbumin Triglycerides Cholesterol LDL Cholesterol Direct HDL Cholesterol 25-OH Vitamin D Total PTH Intact Urine pH Urine WBC (Auto) Urine Creatinine Urine Total Protein Fluid Total Protein Vancomycin Trough Rheumatoid Factor Complement C4 Miscellaneous Test Crossmatch 11/04/16 11/04/16 11/04/16 05:41 06:00 12:10 WBC RBC Hgb Hct MCV MCH MCHC RDW Plt Count Lymph % (Auto) [place] % (Auto) Lymph # [place] # Baso # Seg Neutrophils % Seg Neuts % (Manual) Lymphocytes % (Manual) Monocytes % (Manual) Eosinophils % (Manual) Basophils % (Manual) Nucleated RBC % Seg Neutrophils # Seg Neutrophils # Man Lymphocytes # (Manual) Monocytes # (Manual) Eosinophils # (Manual) Basophils # (Manual) PT INR Fibrinogen dRVVT Confirm Interp Factor V Activity POC ABG pH POC ABG pCO2 POC ABG pO2 ABG pO2 ABG HCO3 ABG Base Excess ABG Hemoglobin Oxyhemoglobin Sodium Potassium Chloride 96.7 L Carbon Dioxide BUN 52 H Creatinine 1.9 H Glucose 126 H POC Glucose 137 H 191 H Lactic Acid Calcium Ionized Calcium Phosphorus Magnesium Direct Bilirubin AST ALT Alkaline Phosphatase Lactate Dehydrogenase Troponin T C-Reactive Protein Total Protein Albumin Prealbumin Triglycerides Cholesterol LDL Cholesterol Direct HDL Cholesterol 25-OH Vitamin D Total PTH Intact Urine pH Urine WBC (Auto) Urine Creatinine Urine Total Protein Fluid Total Protein Vancomycin Trough Rheumatoid Factor Complement C4 Miscellaneous Test Crossmatch 11/04/16 11/05/16 11/05/16 22:57 03:10 05:10 WBC RBC Hgb Hct MCV MCH MCHC RDW Plt Count Lymph % (Auto) [place] % (Auto) Lymph # [place] # Baso # Seg Neutrophils % Seg Neuts % (Manual) Lymphocytes % (Manual) Monocytes % (Manual) Eosinophils % (Manual) Basophils % (Manual) Nucleated RBC % Seg Neutrophils # Seg Neutrophils # Man Lymphocytes # (Manual) Monocytes # (Manual) Eosinophils # (Manual) Basophils # (Manual) PT INR Fibrinogen dRVVT Confirm Interp Factor V Activity POC ABG pH POC ABG pCO2 POC ABG pO2 ABG pO2 ABG HCO3 ABG Base Excess ABG Hemoglobin Oxyhemoglobin Sodium 136 L Potassium Chloride 97.2 L Carbon Dioxide BUN 32 H Creatinine 1.3 H Glucose 123 H POC Glucose 125 H 108 H Lactic Acid Calcium 7.8 L Ionized Calcium Phosphorus Magnesium Direct Bilirubin AST ALT Alkaline Phosphatase Lactate Dehydrogenase Troponin T C-Reactive Protein Total Protein Albumin Prealbumin Triglycerides Cholesterol LDL Cholesterol Direct HDL Cholesterol 25-OH Vitamin D Total PTH Intact Urine pH Urine WBC (Auto) Urine Creatinine Urine Total Protein Fluid Total Protein Vancomycin Trough Rheumatoid Factor Complement C4 Miscellaneous Test Crossmatch 11/05/16 11/05/16 11/05/16 12:23 13:09 13:25 WBC RBC Hgb Hct MCV MCH MCHC RDW Plt Count Lymph % (Auto) [place] % (Auto) Lymph # [place] # Baso # Seg Neutrophils % Seg Neuts % (Manual) Lymphocytes % (Manual) Monocytes % (Manual) Eosinophils % (Manual) Basophils % (Manual) Nucleated RBC % Seg Neutrophils # Seg Neutrophils # Man Lymphocytes # (Manual) Monocytes # (Manual) Eosinophils # (Manual) Basophils # (Manual) PT INR Fibrinogen dRVVT Confirm Interp Factor V Activity POC ABG pH POC ABG pCO2 POC ABG pO2 ABG pO2 ABG HCO3 ABG Base Excess ABG Hemoglobin Oxyhemoglobin Sodium Potassium Chloride Carbon Dioxide BUN Creatinine Glucose POC Glucose 124 H Lactic Acid Calcium Ionized Calcium Phosphorus Magnesium Direct Bilirubin AST ALT Alkaline Phosphatase Lactate Dehydrogenase Troponin T C-Reactive Protein 11.40 H Total Protein Albumin Prealbumin Triglycerides Cholesterol LDL Cholesterol Direct HDL Cholesterol 25-OH Vitamin D Total PTH Intact Urine pH 9.0 H Urine WBC (Auto) Urine Creatinine Urine Total Protein Fluid Total Protein Vancomycin Trough Rheumatoid Factor Complement C4 Miscellaneous Test Crossmatch 11/05/16 11/05/16 11/05/16 13:25 17:54 23:42 WBC RBC Hgb Hct MCV MCH MCHC RDW Plt Count Lymph % (Auto) [place] % (Auto) Lymph # [place] # Baso # Seg Neutrophils % Seg Neuts % (Manual) Lymphocytes % (Manual) Monocytes % (Manual) Eosinophils % (Manual) Basophils % (Manual) Nucleated RBC % Seg Neutrophils # Seg Neutrophils # Man Lymphocytes # (Manual) Monocytes # (Manual) Eosinophils # (Manual) Basophils # (Manual) PT INR Fibrinogen dRVVT Confirm Interp Factor V Activity POC ABG pH POC ABG pCO2 POC ABG pO2 ABG pO2 ABG HCO3 ABG Base Excess ABG Hemoglobin Oxyhemoglobin Sodium Potassium Chloride Carbon Dioxide BUN Creatinine Glucose POC Glucose 114 H 134 H Lactic Acid Calcium Ionized Calcium Phosphorus Magnesium Direct Bilirubin AST ALT Alkaline Phosphatase Lactate Dehydrogenase Troponin T C-Reactive Protein Total Protein Albumin Prealbumin Triglycerides Cholesterol LDL Cholesterol Direct HDL Cholesterol 25-OH Vitamin D Total PTH Intact Urine pH Urine WBC (Auto) Urine Creatinine Urine Total Protein Fluid Total Protein Vancomycin Trough Rheumatoid Factor Complement C4 Miscellaneous Test Flexitest 1 H Crossmatch 11/06/16 11/06/16 11/06/16 04:56 06:25 06:25 WBC RBC 2.50 L Hgb 7.3 L Hct 22.5 L MCV MCH MCHC RDW 16.9 H Plt Count Lymph % (Auto) [place] % (Auto) 10.5 H Lymph # [place] # 1.1 H Baso # Seg Neutrophils % Seg Neuts % (Manual) Lymphocytes % (Manual) Monocytes % (Manual) Eosinophils % (Manual) Basophils % (Manual) Nucleated RBC % Seg Neutrophils # Seg Neutrophils # Man Lymphocytes # (Manual) Monocytes # (Manual) Eosinophils # (Manual) Basophils # (Manual) PT INR Fibrinogen dRVVT Confirm Interp Factor V Activity POC ABG pH POC ABG pCO2 POC ABG pO2 ABG pO2 ABG HCO3 ABG Base Excess ABG Hemoglobin Oxyhemoglobin Sodium Potassium 5.1 H Chloride 95.9 L Carbon Dioxide BUN 52 H Creatinine 1.8 H Glucose 117 H POC Glucose 120 H Lactic Acid Calcium Ionized Calcium Phosphorus Magnesium Direct Bilirubin AST 103 H ALT 77 H Alkaline Phosphatase 285 H Lactate Dehydrogenase Troponin T C-Reactive Protein Total Protein 6.2 L Albumin 1.8 L Prealbumin 0.180 L Triglycerides Cholesterol LDL Cholesterol Direct HDL Cholesterol 25-OH Vitamin D Total PTH Intact Urine pH Urine WBC (Auto) Urine Creatinine Urine Total Protein Fluid Total Protein Vancomycin Trough Rheumatoid Factor Complement C4 Miscellaneous Test Crossmatch 11/06/16 11/06/16 11/06/16 11:56 17:14 23:52 WBC RBC Hgb Hct MCV MCH MCHC RDW Plt Count Lymph % (Auto) [place] % (Auto) Lymph # [place] # Baso # Seg Neutrophils % Seg Neuts % (Manual) Lymphocytes % (Manual) Monocytes % (Manual) Eosinophils % (Manual) Basophils % (Manual) Nucleated RBC % Seg Neutrophils # Seg Neutrophils # Man Lymphocytes # (Manual) Monocytes # (Manual) Eosinophils # (Manual) Basophils # (Manual) PT INR Fibrinogen dRVVT Confirm Interp Factor V Activity POC ABG pH POC ABG pCO2 POC ABG pO2 ABG pO2 ABG HCO3 ABG Base Excess ABG Hemoglobin Oxyhemoglobin Sodium Potassium Chloride Carbon Dioxide BUN Creatinine Glucose POC Glucose 141 H 125 H 130 H Lactic Acid Calcium Ionized Calcium Phosphorus Magnesium Direct Bilirubin AST ALT Alkaline Phosphatase Lactate Dehydrogenase Troponin T C-Reactive Protein Total Protein Albumin Prealbumin Triglycerides Cholesterol LDL Cholesterol Direct HDL Cholesterol 25-OH Vitamin D Total PTH Intact Urine pH Urine WBC (Auto) Urine Creatinine Urine Total Protein Fluid Total Protein Vancomycin Trough Rheumatoid Factor Complement C4 Miscellaneous Test Crossmatch 11/07/16 11/07/16 11/07/16 06:30 06:30 09:37 WBC RBC 2.18 L Hgb 6.3 L Hct 19.7 L* MCV MCH MCHC RDW 16.8 H Plt Count Lymph % (Auto) [place] % (Auto) 10.0 H Lymph # [place] # 1.0 H Baso # Seg Neutrophils % Seg Neuts % (Manual) Lymphocytes % (Manual) Monocytes % (Manual) Eosinophils % (Manual) Basophils % (Manual) Nucleated RBC % Seg Neutrophils # Seg Neutrophils # Man Lymphocytes # (Manual) Monocytes # (Manual) Eosinophils # (Manual) Basophils # (Manual) PT INR Fibrinogen dRVVT Confirm Interp Factor V Activity POC ABG pH POC ABG pCO2 POC ABG pO2 ABG pO2 ABG HCO3 ABG Base Excess ABG Hemoglobin Oxyhemoglobin Sodium 135 L Potassium Chloride 95.6 L Carbon Dioxide BUN 70 H Creatinine 2.0 H Glucose 126 H POC Glucose Lactic Acid Calcium Ionized Calcium Phosphorus Magnesium Direct Bilirubin AST ALT Alkaline Phosphatase Lactate Dehydrogenase Troponin T C-Reactive Protein Total Protein Albumin Prealbumin Triglycerides Cholesterol LDL Cholesterol Direct HDL Cholesterol 25-OH Vitamin D Total PTH Intact Urine pH Urine WBC (Auto) Urine Creatinine Urine Total Protein Fluid Total Protein Vancomycin Trough Rheumatoid Factor Complement C4 Miscellaneous Test Crossmatch See Detail 11/07/16 11/07/16 11/07/16 12:52 18:51 21:26 WBC RBC Hgb Hct MCV MCH MCHC RDW Plt Count Lymph % (Auto) [place] % (Auto) Lymph # [place] # Baso # Seg Neutrophils % Seg Neuts % (Manual) Lymphocytes % (Manual) Monocytes % (Manual) Eosinophils % (Manual) Basophils % (Manual) Nucleated RBC % Seg Neutrophils # Seg Neutrophils # Man Lymphocytes # (Manual) Monocytes # (Manual) Eosinophils # (Manual) Basophils # (Manual) PT INR Fibrinogen dRVVT Confirm Interp Factor V Activity POC ABG pH 7.523 H POC ABG pCO2 34.6 L POC ABG pO2 53 L ABG pO2 ABG HCO3 ABG Base Excess ABG Hemoglobin Oxyhemoglobin Sodium Potassium Chloride Carbon Dioxide BUN Creatinine Glucose POC Glucose 142 H 155 H Lactic Acid Calcium Ionized Calcium Phosphorus Magnesium Direct Bilirubin AST ALT Alkaline Phosphatase Lactate Dehydrogenase Troponin T C-Reactive Protein Total Protein Albumin Prealbumin Triglycerides Cholesterol LDL Cholesterol Direct HDL Cholesterol 25-OH Vitamin D Total PTH Intact Urine pH Urine WBC (Auto) Urine Creatinine Urine Total Protein Fluid Total Protein Vancomycin Trough Rheumatoid Factor Complement C4 Miscellaneous Test Crossmatch 11/07/16 11/08/16 11/08/16 21:34 13:03 23:37 WBC RBC 2.63 L Hgb 7.7 L Hct 22.7 L MCV MCH MCHC RDW 17.0 H Plt Count Lymph % (Auto) [place] % (Auto) Lymph # [place] # Baso # Seg Neutrophils % Seg Neuts % (Manual) Lymphocytes % (Manual) Monocytes % (Manual) Eosinophils % (Manual) Basophils % (Manual) Nucleated RBC % Seg Neutrophils # Seg Neutrophils # Man Lymphocytes # (Manual) Monocytes # (Manual) Eosinophils # (Manual) Basophils # (Manual) PT INR Fibrinogen dRVVT Confirm Interp Factor V Activity POC ABG pH 7.478 H POC ABG pCO2 34.0 L POC ABG pO2 50 L ABG pO2 ABG HCO3 ABG Base Excess ABG Hemoglobin Oxyhemoglobin Sodium Potassium Chloride Carbon Dioxide BUN Creatinine Glucose POC Glucose 113 H Lactic Acid Calcium Ionized Calcium Phosphorus Magnesium Direct Bilirubin AST ALT Alkaline Phosphatase Lactate Dehydrogenase Troponin T C-Reactive Protein Total Protein Albumin Prealbumin Triglycerides Cholesterol LDL Cholesterol Direct HDL Cholesterol 25-OH Vitamin D Total PTH Intact Urine pH Urine WBC (Auto) Urine Creatinine Urine Total Protein Fluid Total Protein Vancomycin Trough Rheumatoid Factor Complement C4 Miscellaneous Test Crossmatch 11/09/16 11/09/16 11/09/16 04:35 10:15 18:21 WBC RBC 2.68 L Hgb 7.8 L Hct 23.3 L MCV MCH MCHC RDW 17.0 H Plt Count Lymph % (Auto) [place] % (Auto) 12.1 H Lymph # [place] # 1.1 H Baso # Seg Neutrophils % Seg Neuts % (Manual) Lymphocytes % (Manual) Monocytes % (Manual) Eosinophils % (Manual) Basophils % (Manual) Nucleated RBC % Seg Neutrophils # Seg Neutrophils # Man Lymphocytes # (Manual) Monocytes # (Manual) Eosinophils # (Manual) Basophils # (Manual) PT INR Fibrinogen dRVVT Confirm Interp Factor V Activity POC ABG pH POC ABG pCO2 POC ABG pO2 ABG pO2 ABG HCO3 ABG Base Excess ABG Hemoglobin Oxyhemoglobin Sodium Potassium Chloride Carbon Dioxide BUN 51 H Creatinine 1.8 H Glucose POC Glucose 60 L Lactic Acid Calcium 8.3 L Ionized Calcium Phosphorus Magnesium Direct Bilirubin AST ALT Alkaline Phosphatase Lactate Dehydrogenase Troponin T C-Reactive Protein Total Protein Albumin Prealbumin Triglycerides Cholesterol LDL Cholesterol Direct HDL Cholesterol 25-OH Vitamin D Total PTH Intact Urine pH Urine WBC (Auto) Urine Creatinine Urine Total Protein Fluid Total Protein Vancomycin Trough Rheumatoid Factor Complement C4 Miscellaneous Test Crossmatch 11/09/16 11/10/16 11/10/16 18:55 07:00 11:51 WBC RBC Hgb Hct MCV MCH MCHC RDW Plt Count Lymph % (Auto) [place] % (Auto) Lymph # [place] # Baso # Seg Neutrophils % Seg Neuts % (Manual) Lymphocytes % (Manual) Monocytes % (Manual) Eosinophils % (Manual) Basophils % (Manual) Nucleated RBC % Seg Neutrophils # Seg Neutrophils # Man Lymphocytes # (Manual) Monocytes # (Manual) Eosinophils # (Manual) Basophils # (Manual) PT INR Fibrinogen dRVVT Confirm Interp Factor V Activity POC ABG pH POC ABG pCO2 POC ABG pO2 ABG pO2 ABG HCO3 ABG Base Excess ABG Hemoglobin Oxyhemoglobin Sodium Potassium 3.0 L D Chloride 97.4 L Carbon Dioxide BUN 28 H Creatinine 1.3 H Glucose POC Glucose 68 L 120 H Lactic Acid Calcium 7.8 L Ionized Calcium Phosphorus Magnesium Direct Bilirubin AST ALT Alkaline Phosphatase Lactate Dehydrogenase Troponin T C-Reactive Protein Total Protein Albumin Prealbumin Triglycerides Cholesterol LDL Cholesterol Direct HDL Cholesterol 25-OH Vitamin D Total PTH Intact Urine pH Urine WBC (Auto) Urine Creatinine Urine Total Protein Fluid Total Protein Vancomycin Trough Rheumatoid Factor Complement C4 Miscellaneous Test Crossmatch 11/10/16 11/11/16 11/11/16 14:20 06:59 06:59 WBC RBC 2.81 L Hgb 8.1 L Hct 24.4 L MCV MCH MCHC RDW 16.4 H Plt Count Lymph % (Auto) [place] % (Auto) 10.8 H Lymph # [place] # 1.0 H Baso # Seg Neutrophils % Seg Neuts % (Manual) Lymphocytes % (Manual) Monocytes % (Manual) Eosinophils % (Manual) Basophils % (Manual) Nucleated RBC % Seg Neutrophils # Seg Neutrophils # Man Lymphocytes # (Manual) Monocytes # (Manual) Eosinophils # (Manual) Basophils # (Manual) PT INR Fibrinogen dRVVT Confirm Interp Factor V Activity POC ABG pH POC ABG pCO2 POC ABG pO2 ABG pO2 ABG HCO3 ABG Base Excess ABG Hemoglobin Oxyhemoglobin Sodium Potassium Chloride Carbon Dioxide BUN Creatinine Glucose POC Glucose Lactic Acid Calcium Ionized Calcium Phosphorus Magnesium Direct Bilirubin AST ALT Alkaline Phosphatase Lactate Dehydrogenase 196 H Troponin T C-Reactive Protein Total Protein 6.1 L Albumin Prealbumin Triglycerides Cholesterol LDL Cholesterol Direct HDL Cholesterol 25-OH Vitamin D Total PTH Intact Urine pH Urine WBC (Auto) Urine Creatinine Urine Total Protein Fluid Total Protein < 3.0 L Vancomycin Trough Rheumatoid Factor Complement C4 Miscellaneous Test Crossmatch 11/11/16 11/11/16 11/12/16 06:59 09:50 04:00 WBC RBC Hgb Hct MCV MCH MCHC RDW Plt Count Lymph % (Auto) [place] % (Auto) Lymph # [place] # Baso # Seg Neutrophils % Seg Neuts % (Manual) Lymphocytes % (Manual) Monocytes % (Manual) Eosinophils % (Manual) Basophils % (Manual) Nucleated RBC % Seg Neutrophils # Seg Neutrophils # Man Lymphocytes # (Manual) Monocytes # (Manual) Eosinophils # (Manual) Basophils # (Manual) PT INR 1.18 H Fibrinogen dRVVT Confirm Interp Factor V Activity POC ABG pH POC ABG pCO2 POC ABG pO2 ABG pO2 ABG HCO3 ABG Base Excess ABG Hemoglobin Oxyhemoglobin Sodium 136 L 133 L Potassium Chloride 96.1 L 94.8 L Carbon Dioxide 21 L BUN 37 H 42 H Creatinine 1.8 H 2.0 H Glucose POC Glucose Lactic Acid Calcium Ionized Calcium Phosphorus Magnesium Direct Bilirubin AST ALT Alkaline Phosphatase Lactate Dehydrogenase Troponin T C-Reactive Protein Total Protein Albumin Prealbumin Triglycerides Cholesterol LDL Cholesterol Direct HDL Cholesterol 25-OH Vitamin D Total PTH Intact Urine pH Urine WBC (Auto) Urine Creatinine Urine Total Protein Fluid Total Protein Vancomycin Trough Rheumatoid Factor Complement C4 Miscellaneous Test Crossmatch 11/12/16 11/12/16 11/13/16 04:00 23:55 05:53 WBC RBC Hgb 8.9 L Hct 27.2 L MCV MCH MCHC RDW Plt Count Lymph % (Auto) [place] % (Auto) Lymph # [place] # Baso # Seg Neutrophils % Seg Neuts % (Manual) Lymphocytes % (Manual) Monocytes % (Manual) Eosinophils % (Manual) Basophils % (Manual) Nucleated RBC % Seg Neutrophils # Seg Neutrophils # Man Lymphocytes # (Manual) Monocytes # (Manual) Eosinophils # (Manual) Basophils # (Manual) PT INR Fibrinogen dRVVT Confirm Interp Factor V Activity POC ABG pH POC ABG pCO2 POC ABG pO2 ABG pO2 ABG HCO3 ABG Base Excess ABG Hemoglobin Oxyhemoglobin Sodium Potassium Chloride Carbon Dioxide BUN Creatinine Glucose POC Glucose 132 H 120 H Lactic Acid Calcium Ionized Calcium Phosphorus Magnesium Direct Bilirubin AST ALT Alkaline Phosphatase Lactate Dehydrogenase Troponin T C-Reactive Protein Total Protein Albumin Prealbumin Triglycerides Cholesterol LDL Cholesterol Direct HDL Cholesterol 25-OH Vitamin D Total PTH Intact Urine pH Urine WBC (Auto) Urine Creatinine Urine Total Protein Fluid Total Protein Vancomycin Trough Rheumatoid Factor Complement C4 Miscellaneous Test Crossmatch 11/13/16 11/13/16 11/13/16 11:43 17:09 23:41 WBC RBC Hgb Hct MCV MCH MCHC RDW Plt Count Lymph % (Auto) [place] % (Auto) Lymph # [place] # Baso # Seg Neutrophils % Seg Neuts % (Manual) Lymphocytes % (Manual) Monocytes % (Manual) Eosinophils % (Manual) Basophils % (Manual) Nucleated RBC % Seg Neutrophils # Seg Neutrophils # Man Lymphocytes # (Manual) Monocytes # (Manual) Eosinophils # (Manual) Basophils # (Manual) PT INR Fibrinogen dRVVT Confirm Interp Factor V Activity POC ABG pH POC ABG pCO2 POC ABG pO2 ABG pO2 ABG HCO3 ABG Base Excess ABG Hemoglobin Oxyhemoglobin Sodium Potassium Chloride Carbon Dioxide BUN Creatinine Glucose POC Glucose 114 H 113 H 108 H Lactic Acid Calcium Ionized Calcium Phosphorus Magnesium Direct Bilirubin AST ALT Alkaline Phosphatase Lactate Dehydrogenase Troponin T C-Reactive Protein Total Protein Albumin Prealbumin Triglycerides Cholesterol LDL Cholesterol Direct HDL Cholesterol 25-OH Vitamin D Total PTH Intact Urine pH Urine WBC (Auto) Urine Creatinine Urine Total Protein Fluid Total Protein Vancomycin Trough Rheumatoid Factor Complement C4 Miscellaneous Test Crossmatch 11/13/16 11/15/16 11/15/16 Unknown 00:37 03:30 WBC 11.2 H RBC 2.72 L Hgb 7.6 L Hct 23.4 L MCV MCH MCHC RDW 16.5 H Plt Count Lymph % (Auto) [place] % (Auto) Lymph # [place] # Baso # Seg Neutrophils % Seg Neuts % (Manual) Lymphocytes % (Manual) Monocytes % (Manual) Eosinophils % (Manual) Basophils % (Manual) Nucleated RBC % Seg Neutrophils # Seg Neutrophils # Man Lymphocytes # (Manual) Monocytes # (Manual) Eosinophils # (Manual) Basophils # (Manual) PT INR Fibrinogen dRVVT Confirm Interp Factor V Activity POC ABG pH POC ABG pCO2 POC ABG pO2 ABG pO2 ABG HCO3 ABG Base Excess ABG Hemoglobin Oxyhemoglobin Sodium 135 L Potassium Chloride 95.2 L Carbon Dioxide BUN 52 H Creatinine 2.2 H Glucose POC Glucose 108 H Lactic Acid Calcium Ionized Calcium Phosphorus Magnesium Direct Bilirubin AST ALT Alkaline Phosphatase Lactate Dehydrogenase Troponin T C-Reactive Protein Total Protein Albumin Prealbumin Triglycerides Cholesterol LDL Cholesterol Direct HDL Cholesterol 25-OH Vitamin D Total PTH Intact Urine pH Urine WBC (Auto) Urine Creatinine Urine Total Protein Fluid Total Protein Vancomycin Trough Rheumatoid Factor Complement C4 Miscellaneous Test Crossmatch 11/15/16 11/15/16 11/15/16 03:30 05:04 11:50 WBC RBC Hgb Hct MCV MCH MCHC RDW Plt Count Lymph % (Auto) [place] % (Auto) Lymph # [place] # Baso # Seg Neutrophils % Seg Neuts % (Manual) Lymphocytes % (Manual) Monocytes % (Manual) Eosinophils % (Manual) Basophils % (Manual) Nucleated RBC % Seg Neutrophils # Seg Neutrophils # Man Lymphocytes # (Manual) Monocytes # (Manual) Eosinophils # (Manual) Basophils # (Manual) PT INR Fibrinogen dRVVT Confirm Interp Factor V Activity POC ABG pH POC ABG pCO2 POC ABG pO2 ABG pO2 ABG HCO3 ABG Base Excess ABG Hemoglobin Oxyhemoglobin Sodium Potassium 3.4 L Chloride Carbon Dioxide BUN 25 H Creatinine 1.5 H Glucose 103 H POC Glucose 121 H 144 H Lactic Acid Calcium Ionized Calcium Phosphorus Magnesium Direct Bilirubin AST ALT Alkaline Phosphatase Lactate Dehydrogenase Troponin T C-Reactive Protein Total Protein Albumin Prealbumin Triglycerides Cholesterol LDL Cholesterol Direct HDL Cholesterol 25-OH Vitamin D Total PTH Intact Urine pH Urine WBC (Auto) Urine Creatinine Urine Total Protein Fluid Total Protein Vancomycin Trough Rheumatoid Factor Complement C4 Miscellaneous Test Crossmatch 11/15/16 11/15/16 11/16/16 21:28 23:20 11:44 WBC RBC Hgb Hct MCV MCH MCHC RDW Plt Count Lymph % (Auto) [place] % (Auto) Lymph # [place] # Baso # Seg Neutrophils % Seg Neuts % (Manual) Lymphocytes % (Manual) Monocytes % (Manual) Eosinophils % (Manual) Basophils % (Manual) Nucleated RBC % Seg Neutrophils # Seg Neutrophils # Man Lymphocytes # (Manual) Monocytes # (Manual) Eosinophils # (Manual) Basophils # (Manual) PT INR Fibrinogen dRVVT Confirm Interp Factor V Activity POC ABG pH 7.462 H POC ABG pCO2 POC ABG pO2 71 L ABG pO2 ABG HCO3 ABG Base Excess ABG Hemoglobin Oxyhemoglobin Sodium Potassium Chloride Carbon Dioxide BUN Creatinine Glucose POC Glucose 116 H 133 H Lactic Acid Calcium Ionized Calcium Phosphorus Magnesium Direct Bilirubin AST ALT Alkaline Phosphatase Lactate Dehydrogenase Troponin T C-Reactive Protein Total Protein Albumin Prealbumin Triglycerides Cholesterol LDL Cholesterol Direct HDL Cholesterol 25-OH Vitamin D Total PTH Intact Urine pH Urine WBC (Auto) Urine Creatinine Urine Total Protein Fluid Total Protein Vancomycin Trough Rheumatoid Factor Complement C4 Miscellaneous Test Crossmatch 11/16/16 11/16/16 11/16/16 12:20 17:05 23:35 WBC 11.7 H RBC 2.73 L Hgb 7.6 L Hct 23.7 L MCV MCH MCHC RDW 16.6 H Plt Count Lymph % (Auto) [place] % (Auto) Lymph # [place] # Baso # Seg Neutrophils % Seg Neuts % (Manual) Lymphocytes % (Manual) Monocytes % (Manual) Eosinophils % (Manual) Basophils % (Manual) Nucleated RBC % Seg Neutrophils # Seg Neutrophils # Man Lymphocytes # (Manual) Monocytes # (Manual) Eosinophils # (Manual) Basophils # (Manual) PT INR Fibrinogen dRVVT Confirm Interp Factor V Activity POC ABG pH POC ABG pCO2 POC ABG pO2 ABG pO2 ABG HCO3 ABG Base Excess ABG Hemoglobin Oxyhemoglobin Sodium Potassium Chloride Carbon Dioxide BUN Creatinine Glucose POC Glucose 154 H 125 H Lactic Acid Calcium Ionized Calcium Phosphorus Magnesium Direct Bilirubin AST ALT Alkaline Phosphatase Lactate Dehydrogenase Troponin T C-Reactive Protein Total Protein Albumin Prealbumin Triglycerides Cholesterol LDL Cholesterol Direct HDL Cholesterol 25-OH Vitamin D Total PTH Intact Urine pH Urine WBC (Auto) Urine Creatinine Urine Total Protein Fluid Total Protein Vancomycin Trough Rheumatoid Factor Complement C4 Miscellaneous Test Crossmatch 11/17/16 11/17/16 11/17/16 03:20 03:20 03:20 WBC RBC 2.55 L Hgb 7.3 L Hct 21.9 L MCV MCH MCHC RDW 16.6 H Plt Count Lymph % (Auto) [place] % (Auto) 11.5 H Lymph # [place] # 1.1 H Baso # Seg Neutrophils % Seg Neuts % (Manual) Lymphocytes % (Manual) Monocytes % (Manual) Eosinophils % (Manual) Basophils % (Manual) Nucleated RBC % Seg Neutrophils # Seg Neutrophils # Man Lymphocytes # (Manual) Monocytes # (Manual) Eosinophils # (Manual) Basophils # (Manual) PT 16.8 H INR 1.37 H Fibrinogen dRVVT Confirm Interp Factor V Activity POC ABG pH POC ABG pCO2 POC ABG pO2 ABG pO2 ABG HCO3 ABG Base Excess ABG Hemoglobin Oxyhemoglobin Sodium Potassium 3.5 L Chloride Carbon Dioxide BUN 21 H Creatinine Glucose POC Glucose Lactic Acid Calcium 7.9 L Ionized Calcium Phosphorus Magnesium Direct Bilirubin AST ALT Alkaline Phosphatase Lactate Dehydrogenase Troponin T C-Reactive Protein Total Protein Albumin Prealbumin Triglycerides Cholesterol LDL Cholesterol Direct HDL Cholesterol 25-OH Vitamin D Total PTH Intact Urine pH Urine WBC (Auto) Urine Creatinine Urine Total Protein Fluid Total Protein Vancomycin Trough Rheumatoid Factor Complement C4 Miscellaneous Test Crossmatch 11/17/16 11/17/16 11/17/16 06:34 11:21 21:22 WBC RBC Hgb Hct MCV MCH MCHC RDW Plt Count Lymph % (Auto) [place] % (Auto) Lymph # [place] # Baso # Seg Neutrophils % Seg Neuts % (Manual) Lymphocytes % (Manual) Monocytes % (Manual) Eosinophils % (Manual) Basophils % (Manual) Nucleated RBC % Seg Neutrophils # Seg Neutrophils # Man Lymphocytes # (Manual) Monocytes # (Manual) Eosinophils # (Manual) Basophils # (Manual) PT INR Fibrinogen dRVVT Confirm Interp Factor V Activity POC ABG pH 7.467 H POC ABG pCO2 POC ABG pO2 73 L ABG pO2 ABG HCO3 ABG Base Excess ABG Hemoglobin Oxyhemoglobin Sodium Potassium Chloride Carbon Dioxide BUN Creatinine Glucose POC Glucose 121 H 119 H Lactic Acid Calcium Ionized Calcium Phosphorus Magnesium Direct Bilirubin AST ALT Alkaline Phosphatase Lactate Dehydrogenase Troponin T C-Reactive Protein Total Protein Albumin Prealbumin Triglycerides Cholesterol LDL Cholesterol Direct HDL Cholesterol 25-OH Vitamin D Total PTH Intact Urine pH Urine WBC (Auto) Urine Creatinine Urine Total Protein Fluid Total Protein Vancomycin Trough Rheumatoid Factor Complement C4 Miscellaneous Test Crossmatch 11/18/16 11/18/16 11/19/16 12:16 17:19 00:00 WBC RBC Hgb Hct MCV MCH MCHC RDW Plt Count Lymph % (Auto) [place] % (Auto) Lymph # [place] # Baso # Seg Neutrophils % Seg Neuts % (Manual) Lymphocytes % (Manual) Monocytes % (Manual) Eosinophils % (Manual) Basophils % (Manual) Nucleated RBC % Seg Neutrophils # Seg Neutrophils # Man Lymphocytes # (Manual) Monocytes # (Manual) Eosinophils # (Manual) Basophils # (Manual) PT INR Fibrinogen dRVVT Confirm Interp Factor V Activity POC ABG pH POC ABG pCO2 POC ABG pO2 ABG pO2 ABG HCO3 ABG Base Excess ABG Hemoglobin Oxyhemoglobin Sodium Potassium Chloride Carbon Dioxide BUN Creatinine Glucose POC Glucose 124 H 162 H 139 H Lactic Acid Calcium Ionized Calcium Phosphorus Magnesium Direct Bilirubin AST ALT Alkaline Phosphatase Lactate Dehydrogenase Troponin T C-Reactive Protein Total Protein Albumin Prealbumin Triglycerides Cholesterol LDL Cholesterol Direct HDL Cholesterol 25-OH Vitamin D Total PTH Intact Urine pH Urine WBC (Auto) Urine Creatinine Urine Total Protein Fluid Total Protein Vancomycin Trough Rheumatoid Factor Complement C4 Miscellaneous Test Crossmatch 11/19/16 11/19/16 11/20/16 05:00 12:43 00:40 WBC RBC Hgb Hct MCV MCH MCHC RDW Plt Count Lymph % (Auto) [place] % (Auto) Lymph # [place] # Baso # Seg Neutrophils % Seg Neuts % (Manual) Lymphocytes % (Manual) Monocytes % (Manual) Eosinophils % (Manual) Basophils % (Manual) Nucleated RBC % Seg Neutrophils # Seg Neutrophils # Man Lymphocytes # (Manual) Monocytes # (Manual) Eosinophils # (Manual) Basophils # (Manual) PT INR Fibrinogen dRVVT Confirm Interp Factor V Activity POC ABG pH POC ABG pCO2 POC ABG pO2 ABG pO2 ABG HCO3 ABG Base Excess ABG Hemoglobin Oxyhemoglobin Sodium Potassium Chloride Carbon Dioxide BUN Creatinine Glucose POC Glucose 110 H 125 H 136 H Lactic Acid Calcium Ionized Calcium Phosphorus Magnesium Direct Bilirubin AST ALT Alkaline Phosphatase Lactate Dehydrogenase Troponin T C-Reactive Protein Total Protein Albumin Prealbumin Triglycerides Cholesterol LDL Cholesterol Direct HDL Cholesterol 25-OH Vitamin D Total PTH Intact Urine pH Urine WBC (Auto) Urine Creatinine Urine Total Protein Fluid Total Protein Vancomycin Trough Rheumatoid Factor Complement C4 Miscellaneous Test Crossmatch 11/20/16 11/20/16 11/20/16 05:00 05:00 05:51 WBC 13.1 H RBC 2.74 L Hgb 7.7 L Hct 23.6 L MCV MCH MCHC RDW 16.9 H Plt Count Lymph % (Auto) [place] % (Auto) 10.8 H Lymph # [place] # 1.4 H Baso # Seg Neutrophils % Seg Neuts % (Manual) Lymphocytes % (Manual) Monocytes % (Manual) Eosinophils % (Manual) Basophils % (Manual) Nucleated RBC % Seg Neutrophils # 7.9 H Seg Neutrophils # Man Lymphocytes # (Manual) Monocytes # (Manual) Eosinophils # (Manual) Basophils # (Manual) PT INR Fibrinogen dRVVT Confirm Interp Factor V Activity POC ABG pH POC ABG pCO2 POC ABG pO2 ABG pO2 ABG HCO3 ABG Base Excess ABG Hemoglobin Oxyhemoglobin Sodium Potassium Chloride Carbon Dioxide BUN 31 H Creatinine 1.8 H Glucose 129 H POC Glucose 133 H Lactic Acid Calcium Ionized Calcium Phosphorus Magnesium Direct Bilirubin AST ALT Alkaline Phosphatase Lactate Dehydrogenase Troponin T C-Reactive Protein Total Protein Albumin Prealbumin Triglycerides Cholesterol LDL Cholesterol Direct HDL Cholesterol 25-OH Vitamin D Total PTH Intact Urine pH Urine WBC (Auto) Urine Creatinine Urine Total Protein Fluid Total Protein Vancomycin Trough Rheumatoid Factor Complement C4 Miscellaneous Test Crossmatch 11/20/16 11/20/16 11/21/16 12:40 18:10 01:20 WBC RBC Hgb Hct MCV MCH MCHC RDW Plt Count Lymph % (Auto) [place] % (Auto) Lymph # [place] # Baso # Seg Neutrophils % Seg Neuts % (Manual) Lymphocytes % (Manual) Monocytes % (Manual) Eosinophils % (Manual) Basophils % (Manual) Nucleated RBC % Seg Neutrophils # Seg Neutrophils # Man Lymphocytes # (Manual) Monocytes # (Manual) Eosinophils # (Manual) Basophils # (Manual) PT INR Fibrinogen dRVVT Confirm Interp Factor V Activity POC ABG pH POC ABG pCO2 POC ABG pO2 ABG pO2 ABG HCO3 ABG Base Excess ABG Hemoglobin Oxyhemoglobin Sodium Potassium Chloride Carbon Dioxide BUN Creatinine Glucose POC Glucose 134 H 138 H 136 H Lactic Acid Calcium Ionized Calcium Phosphorus Magnesium Direct Bilirubin AST ALT Alkaline Phosphatase Lactate Dehydrogenase Troponin T C-Reactive Protein Total Protein Albumin Prealbumin Triglycerides Cholesterol LDL Cholesterol Direct HDL Cholesterol 25-OH Vitamin D Total PTH Intact Urine pH Urine WBC (Auto) Urine Creatinine Urine Total Protein Fluid Total Protein Vancomycin Trough Rheumatoid Factor Complement C4 Miscellaneous Test Crossmatch 11/21/16 11/21/16 11/21/16 07:04 07:45 07:45 WBC 22.0 H RBC 2.91 L Hgb 8.2 L Hct 25.4 L MCV MCH MCHC RDW 17.1 H Plt Count Lymph % (Auto) [place] % (Auto) Lymph # [place] # Baso # Seg Neutrophils % Seg Neuts % (Manual) Lymphocytes % (Manual) 8.0 L Monocytes % (Manual) Eosinophils % (Manual) Basophils % (Manual) Nucleated RBC % Seg Neutrophils # Seg Neutrophils # Man 14.7 H Lymphocytes # (Manual) Monocytes # (Manual) 1.1 H Eosinophils # (Manual) Basophils # (Manual) PT INR Fibrinogen dRVVT Confirm Interp Factor V Activity POC ABG pH POC ABG pCO2 POC ABG pO2 ABG pO2 ABG HCO3 ABG Base Excess ABG Hemoglobin Oxyhemoglobin Sodium Potassium Chloride Carbon Dioxide BUN 42 H Creatinine 2.0 H Glucose POC Glucose 108 H Lactic Acid Calcium Ionized Calcium Phosphorus Magnesium Direct Bilirubin AST ALT Alkaline Phosphatase Lactate Dehydrogenase Troponin T C-Reactive Protein Total Protein Albumin Prealbumin Triglycerides Cholesterol LDL Cholesterol Direct HDL Cholesterol 25-OH Vitamin D Total PTH Intact Urine pH Urine WBC (Auto) Urine Creatinine Urine Total Protein Fluid Total Protein Vancomycin Trough Rheumatoid Factor Complement C4 Miscellaneous Test Crossmatch 11/21/16 11/21/16 11/21/16 08:38 10:09 11:20 WBC RBC Hgb Hct MCV MCH MCHC RDW Plt Count Lymph % (Auto) [place] % (Auto) Lymph # [place] # Baso # Seg Neutrophils % Seg Neuts % (Manual) Lymphocytes % (Manual) Monocytes % (Manual) Eosinophils % (Manual) Basophils % (Manual) Nucleated RBC % Seg Neutrophils # Seg Neutrophils # Man Lymphocytes # (Manual) Monocytes # (Manual) Eosinophils # (Manual) Basophils # (Manual) PT INR Fibrinogen dRVVT Confirm Interp Factor V Activity POC ABG pH 7.346 L POC ABG pCO2 34.4 L POC ABG pO2 314 H ABG pO2 ABG HCO3 ABG Base Excess ABG Hemoglobin Oxyhemoglobin Sodium Potassium Chloride Carbon Dioxide BUN Creatinine Glucose POC Glucose 195 H 153 H Lactic Acid Calcium Ionized Calcium Phosphorus Magnesium Direct Bilirubin AST ALT Alkaline Phosphatase Lactate Dehydrogenase Troponin T C-Reactive Protein Total Protein Albumin Prealbumin Triglycerides Cholesterol LDL Cholesterol Direct HDL Cholesterol 25-OH Vitamin D Total PTH Intact Urine pH Urine WBC (Auto) Urine Creatinine Urine Total Protein Fluid Total Protein Vancomycin Trough Rheumatoid Factor Complement C4 Miscellaneous Test Crossmatch 11/21/16 11/22/16 11/22/16 23:37 04:48 05:00 WBC 29.7 H RBC 2.73 L Hgb 7.5 L Hct 24.2 L MCV MCH 27 L MCHC RDW 17.4 H Plt Count Lymph % (Auto) [place] % (Auto) Lymph # [place] # Baso # Seg Neutrophils % Seg Neuts % (Manual) Lymphocytes % (Manual) 7.0 L Monocytes % (Manual) Eosinophils % (Manual) Basophils % (Manual) Nucleated RBC % Seg Neutrophils # Seg Neutrophils # Man 15.4 H Lymphocytes # (Manual) Monocytes # (Manual) Eosinophils # (Manual) Basophils # (Manual) PT INR Fibrinogen dRVVT Confirm Interp Factor V Activity POC ABG pH POC ABG pCO2 24.6 L POC ABG pO2 189 H ABG pO2 ABG HCO3 ABG Base Excess ABG Hemoglobin Oxyhemoglobin Sodium Potassium Chloride Carbon Dioxide BUN Creatinine Glucose POC Glucose 65 L Lactic Acid Calcium Ionized Calcium Phosphorus Magnesium Direct Bilirubin AST ALT Alkaline Phosphatase Lactate Dehydrogenase Troponin T C-Reactive Protein Total Protein Albumin Prealbumin Triglycerides Cholesterol LDL Cholesterol Direct HDL Cholesterol 25-OH Vitamin D Total PTH Intact Urine pH Urine WBC (Auto) Urine Creatinine Urine Total Protein Fluid Total Protein Vancomycin Trough Rheumatoid Factor Complement C4 Miscellaneous Test Crossmatch 11/22/16 11/23/1611/23/17 05:00 03:44 04:06 WBC RBC 2.52 L Hgb 7.2 L Hct 21.5 L MCV MCH MCHC RDW 17.1 H Plt Count Lymph % (Auto) [place] % (Auto) 12.4 H Lymph # [place] # 1.4 H Baso # Seg Neutrophils % Seg Neuts % (Manual) Lymphocytes % (Manual) Monocytes % (Manual) Eosinophils % (Manual) Basophils % (Manual) Nucleated RBC % Seg Neutrophils # Seg Neutrophils # Man Lymphocytes # (Manual) Monocytes # (Manual) Eosinophils # (Manual) Basophils # (Manual) PT INR Fibrinogen dRVVT Confirm Interp Factor V Activity POC ABG pH 7.493 H POC ABG pCO2 29.5 L POC ABG pO2 49 L ABG pO2 ABG HCO3 ABG Base Excess ABG Hemoglobin Oxyhemoglobin Sodium 134 L Potassium Chloride 95.9 L Carbon Dioxide 14 L D BUN 51 H Creatinine 2.6 H Glucose POC Glucose Lactic Acid Calcium Ionized Calcium Phosphorus Magnesium Direct Bilirubin AST ALT Alkaline Phosphatase Lactate Dehydrogenase Troponin T C-Reactive Protein Total Protein Albumin Prealbumin Triglycerides Cholesterol LDL Cholesterol Direct HDL Cholesterol 25-OH Vitamin D Total PTH Intact Urine pH Urine WBC (Auto) Urine Creatinine Urine Total Protein Fluid Total Protein Vancomycin Trough Rheumatoid Factor Complement C4 Miscellaneous Test Crossmatch 11/23/16 11/23/16 11/24/16 04:06 11:29 06:39 WBC RBC Hgb Hct MCV MCH MCHC RDW Plt Count Lymph % (Auto) [place] % (Auto) Lymph # [place] # Baso # Seg Neutrophils % Seg Neuts % (Manual) Lymphocytes % (Manual) Monocytes % (Manual) Eosinophils % (Manual) Basophils % (Manual) Nucleated RBC % Seg Neutrophils # Seg Neutrophils # Man Lymphocytes # (Manual) Monocytes # (Manual) Eosinophils # (Manual) Basophils # (Manual) PT INR Fibrinogen dRVVT Confirm Interp Factor V Activity POC ABG pH POC ABG pCO2 POC ABG pO2 ABG pO2 ABG HCO3 ABG Base Excess ABG Hemoglobin Oxyhemoglobin Sodium 136 L Potassium Chloride 95.2 L Carbon Dioxide BUN 60 H Creatinine 2.9 H Glucose POC Glucose 69 L 305 H Lactic Acid Calcium Ionized Calcium Phosphorus Magnesium 1.60 L Direct Bilirubin AST ALT Alkaline Phosphatase Lactate Dehydrogenase Troponin T C-Reactive Protein Total Protein Albumin Prealbumin Triglycerides Cholesterol LDL Cholesterol Direct HDL Cholesterol 25-OH Vitamin D Total PTH Intact Urine pH Urine WBC (Auto) Urine Creatinine Urine Total Protein Fluid Total Protein Vancomycin Trough Rheumatoid Factor Complement C4 Miscellaneous Test Crossmatch 11/24/16 11/24/16 11/24/16 06:43 08:08 08:08 WBC 11.2 H RBC 2.47 L Hgb 6.8 L Hct 20.6 L MCV MCH MCHC RDW 17.0 H Plt Count Lymph % (Auto) [place] % (Auto) 10.3 H Lymph # [place] # 1.2 H Baso # Seg Neutrophils % Seg Neuts % (Manual) Lymphocytes % (Manual) Monocytes % (Manual) Eosinophils % (Manual) Basophils % (Manual) Nucleated RBC % Seg Neutrophils # Seg Neutrophils # Man Lymphocytes # (Manual) Monocytes # (Manual) Eosinophils # (Manual) Basophils # (Manual) PT INR Fibrinogen dRVVT Confirm Interp Factor V Activity POC ABG pH POC ABG pCO2 POC ABG pO2 ABG pO2 ABG HCO3 ABG Base Excess ABG Hemoglobin Oxyhemoglobin Sodium 135 L Potassium Chloride 96.3 L Carbon Dioxide BUN 61 H Creatinine 3.1 H Glucose POC Glucose 62 L Lactic Acid Calcium 8.2 L Ionized Calcium Phosphorus Magnesium Direct Bilirubin AST ALT Alkaline Phosphatase Lactate Dehydrogenase Troponin T C-Reactive Protein Total Protein Albumin Prealbumin Triglycerides Cholesterol LDL Cholesterol Direct HDL Cholesterol 25-OH Vitamin D Total PTH Intact Urine pH Urine WBC (Auto) Urine Creatinine Urine Total Protein Fluid Total Protein Vancomycin Trough Rheumatoid Factor Complement C4 Miscellaneous Test Crossmatch 11/24/16 11/24/16 11/24/16 08:34 11:20 12:41 WBC RBC Hgb Hct MCV MCH MCHC RDW Plt Count Lymph % (Auto) [place] % (Auto) Lymph # [place] # Baso # Seg Neutrophils % Seg Neuts % (Manual) Lymphocytes % (Manual) Monocytes % (Manual) Eosinophils % (Manual) Basophils % (Manual) Nucleated RBC % Seg Neutrophils # Seg Neutrophils # Man Lymphocytes # (Manual) Monocytes # (Manual) Eosinophils # (Manual) Basophils # (Manual) PT INR Fibrinogen dRVVT Confirm Interp Factor V Activity POC ABG pH POC ABG pCO2 POC ABG pO2 ABG pO2 ABG HCO3 ABG Base Excess ABG Hemoglobin Oxyhemoglobin Sodium Potassium Chloride Carbon Dioxide BUN Creatinine Glucose POC Glucose 108 H Lactic Acid Calcium Ionized Calcium Phosphorus Magnesium 1.60 L Direct Bilirubin AST ALT Alkaline Phosphatase Lactate Dehydrogenase Troponin T C-Reactive Protein Total Protein Albumin Prealbumin Triglycerides Cholesterol LDL Cholesterol Direct HDL Cholesterol 25-OH Vitamin D Total PTH Intact Urine pH Urine WBC (Auto) Urine Creatinine Urine Total Protein Fluid Total Protein Vancomycin Trough Rheumatoid Factor Complement C4 Miscellaneous Test Crossmatch See Detail 11/25/16 11/25/16 11/25/16 00:03 04:42 04:42 WBC RBC 3.03 L Hgb 8.6 L Hct 25.3 L MCV MCH MCHC RDW 16.2 H Plt Count Lymph % (Auto) [place] % (Auto) 8.1 H Lymph # [place] # Baso # Seg Neutrophils % 71.3 H Seg Neuts % (Manual) Lymphocytes % (Manual) Monocytes % (Manual) Eosinophils % (Manual) Basophils % (Manual) Nucleated RBC % Seg Neutrophils # Seg Neutrophils # Man Lymphocytes # (Manual) Monocytes # (Manual) Eosinophils # (Manual) Basophils # (Manual) PT INR Fibrinogen dRVVT Confirm Interp Factor V Activity POC ABG pH POC ABG pCO2 POC ABG pO2 ABG pO2 ABG HCO3 ABG Base Excess ABG Hemoglobin Oxyhemoglobin Sodium Potassium Chloride Carbon Dioxide BUN 61 H Creatinine 3.0 H Glucose 102 H POC Glucose 113 H Lactic Acid Calcium 8.2 L Ionized Calcium Phosphorus Magnesium Direct Bilirubin AST ALT Alkaline Phosphatase 142 H Lactate Dehydrogenase Troponin T C-Reactive Protein Total Protein 5.7 L Albumin 1.5 L Prealbumin Triglycerides Cholesterol LDL Cholesterol Direct HDL Cholesterol 25-OH Vitamin D Total PTH Intact Urine pH Urine WBC (Auto) Urine Creatinine Urine Total Protein Fluid Total Protein Vancomycin Trough Rheumatoid Factor Complement C4 Miscellaneous Test Crossmatch 11/25/16 11/25/16 11/25/16 05:12 11:31 14:12 WBC RBC Hgb Hct MCV MCH MCHC RDW Plt Count Lymph % (Auto) [place] % (Auto) Lymph # [place] # Baso # Seg Neutrophils % Seg Neuts % (Manual) Lymphocytes % (Manual) Monocytes % (Manual) Eosinophils % (Manual) Basophils % (Manual) Nucleated RBC % Seg Neutrophils # Seg Neutrophils # Man Lymphocytes # (Manual) Monocytes # (Manual) Eosinophils # (Manual) Basophils # (Manual) PT INR Fibrinogen dRVVT Confirm Interp Factor V Activity POC ABG pH 7.487 H POC ABG pCO2 POC ABG pO2 153 H ABG pO2 ABG HCO3 ABG Base Excess ABG Hemoglobin Oxyhemoglobin Sodium Potassium Chloride Carbon Dioxide BUN Creatinine Glucose POC Glucose 131 H 140 H Lactic Acid Calcium Ionized Calcium Phosphorus Magnesium Direct Bilirubin AST ALT Alkaline Phosphatase Lactate Dehydrogenase Troponin T C-Reactive Protein Total Protein Albumin Prealbumin Triglycerides Cholesterol LDL Cholesterol Direct HDL Cholesterol 25-OH Vitamin D Total PTH Intact Urine pH Urine WBC (Auto) Urine Creatinine Urine Total Protein Fluid Total Protein Vancomycin Trough Rheumatoid Factor Complement C4 Miscellaneous Test Crossmatch 11/25/16 11/26/16 11/26/16 17:23 00:09 05:13 WBC RBC 2.94 L Hgb 8.4 L Hct 24.6 L MCV MCH MCHC RDW 16.4 H Plt Count Lymph % (Auto) [place] % (Auto) 12.3 H Lymph # [place] # 1.1 H Baso # Seg Neutrophils % Seg Neuts % (Manual) Lymphocytes % (Manual) Monocytes % (Manual) Eosinophils % (Manual) Basophils % (Manual) Nucleated RBC % Seg Neutrophils # Seg Neutrophils # Man Lymphocytes # (Manual) Monocytes # (Manual) Eosinophils # (Manual) Basophils # (Manual) PT INR Fibrinogen dRVVT Confirm Interp Factor V Activity POC ABG pH POC ABG pCO2 POC ABG pO2 ABG pO2 ABG HCO3 ABG Base Excess ABG Hemoglobin Oxyhemoglobin Sodium Potassium Chloride Carbon Dioxide BUN Creatinine Glucose POC Glucose 146 H 112 H Lactic Acid Calcium Ionized Calcium Phosphorus Magnesium Direct Bilirubin AST ALT Alkaline Phosphatase Lactate Dehydrogenase Troponin T C-Reactive Protein Total Protein Albumin Prealbumin Triglycerides Cholesterol LDL Cholesterol Direct HDL Cholesterol 25-OH Vitamin D Total PTH Intact Urine pH Urine WBC (Auto) Urine Creatinine Urine Total Protein Fluid Total Protein Vancomycin Trough Rheumatoid Factor Complement C4 Miscellaneous Test Crossmatch 11/26/16 11/26/16 11/26/16 05:13 05:28 11:53 WBC RBC Hgb Hct MCV MCH MCHC RDW Plt Count Lymph % (Auto) [place] % (Auto) Lymph # [place] # Baso # Seg Neutrophils % Seg Neuts % (Manual) Lymphocytes % (Manual) Monocytes % (Manual) Eosinophils % (Manual) Basophils % (Manual) Nucleated RBC % Seg Neutrophils # Seg Neutrophils # Man Lymphocytes # (Manual) Monocytes # (Manual) Eosinophils # (Manual) Basophils # (Manual) PT INR Fibrinogen dRVVT Confirm Interp Factor V Activity POC ABG pH POC ABG pCO2 POC ABG pO2 ABG pO2 ABG HCO3 ABG Base Excess ABG Hemoglobin Oxyhemoglobin Sodium Potassium Chloride 97.8 L Carbon Dioxide BUN 37 H Creatinine 2.0 H Glucose 109 H POC Glucose 117 H 111 H Lactic Acid Calcium 7.9 L Ionized Calcium Phosphorus 1.80 L D Magnesium Direct Bilirubin AST ALT Alkaline Phosphatase Lactate Dehydrogenase Troponin T C-Reactive Protein Total Protein Albumin Prealbumin Triglycerides Cholesterol LDL Cholesterol Direct HDL Cholesterol 25-OH Vitamin D Total PTH Intact Urine pH Urine WBC (Auto) Urine Creatinine Urine Total Protein Fluid Total Protein Vancomycin Trough Rheumatoid Factor Complement C4 Miscellaneous Test Crossmatch 11/26/16 11/27/16 11/27/16 17:14 04:50 06:02 WBC RBC Hgb Hct MCV MCH MCHC RDW Plt Count Lymph % (Auto) [place] % (Auto) Lymph # [place] # Baso # Seg Neutrophils % Seg Neuts % (Manual) Lymphocytes % (Manual) Monocytes % (Manual) Eosinophils % (Manual) Basophils % (Manual) Nucleated RBC % Seg Neutrophils # Seg Neutrophils # Man Lymphocytes # (Manual) Monocytes # (Manual) Eosinophils # (Manual) Basophils # (Manual) PT INR Fibrinogen dRVVT Confirm Interp Factor V Activity POC ABG pH POC ABG pCO2 POC ABG pO2 ABG pO2 75.2 L ABG HCO3 26.4 H ABG Base Excess ABG Hemoglobin 7.6 L Oxyhemoglobin 94.8 L Sodium Potassium Chloride Carbon Dioxide BUN 49 H Creatinine 2.3 H Glucose POC Glucose 115 H Lactic Acid Calcium Ionized Calcium Phosphorus 1.50 L Magnesium Direct Bilirubin AST ALT Alkaline Phosphatase Lactate Dehydrogenase Troponin T C-Reactive Protein Total Protein Albumin Prealbumin Triglycerides Cholesterol LDL Cholesterol Direct HDL Cholesterol 25-OH Vitamin D Total PTH Intact Urine pH Urine WBC (Auto) Urine Creatinine Urine Total Protein Fluid Total Protein Vancomycin Trough Rheumatoid Factor Complement C4 Miscellaneous Test Crossmatch 11/27/16 11/27/16 11/27/16 06:02 11:25 17:25 WBC 11.6 H RBC 2.75 L Hgb 7.6 L Hct 23.4 L MCV MCH MCHC RDW 16.5 H Plt Count Lymph % (Auto) [place] % (Auto) Lymph # [place] # Baso # Seg Neutrophils % Seg Neuts % (Manual) Lymphocytes % (Manual) Monocytes % (Manual) Eosinophils % (Manual) Basophils % (Manual) Nucleated RBC % Seg Neutrophils # Seg Neutrophils # Man Lymphocytes # (Manual) Monocytes # (Manual) Eosinophils # (Manual) Basophils # (Manual) PT INR Fibrinogen dRVVT Confirm Interp Factor V Activity POC ABG pH POC ABG pCO2 POC ABG pO2 ABG pO2 ABG HCO3 ABG Base Excess ABG Hemoglobin Oxyhemoglobin Sodium Potassium Chloride Carbon Dioxide BUN Creatinine Glucose POC Glucose 114 H 126 H Lactic Acid Calcium Ionized Calcium Phosphorus Magnesium Direct Bilirubin AST ALT Alkaline Phosphatase Lactate Dehydrogenase Troponin T C-Reactive Protein Total Protein Albumin Prealbumin Triglycerides Cholesterol LDL Cholesterol Direct HDL Cholesterol 25-OH Vitamin D Total PTH Intact Urine pH Urine WBC (Auto) Urine Creatinine Urine Total Protein Fluid Total Protein Vancomycin Trough Rheumatoid Factor Complement C4 Miscellaneous Test Crossmatch 11/28/16 11/28/16 11/28/16 04:45 05:33 05:44 WBC RBC Hgb Hct MCV MCH MCHC RDW Plt Count Lymph % (Auto) [place] % (Auto) Lymph # [place] # Baso # Seg Neutrophils % Seg Neuts % (Manual) Lymphocytes % (Manual) Monocytes % (Manual) Eosinophils % (Manual) Basophils % (Manual) Nucleated RBC % Seg Neutrophils # Seg Neutrophils # Man Lymphocytes # (Manual) Monocytes # (Manual) Eosinophils # (Manual) Basophils # (Manual) PT INR Fibrinogen dRVVT Confirm Interp Factor V Activity POC ABG pH POC ABG pCO2 POC ABG pO2 ABG pO2 99.3 H ABG HCO3 ABG Base Excess ABG Hemoglobin 8.3 L Oxyhemoglobin Sodium Potassium Chloride Carbon Dioxide BUN 63 H Creatinine 2.4 H Glucose 102 H POC Glucose 108 H Lactic Acid Calcium Ionized Calcium Phosphorus 1.80 L Magnesium Direct Bilirubin AST ALT Alkaline Phosphatase Lactate Dehydrogenase Troponin T C-Reactive Protein Total Protein Albumin Prealbumin Triglycerides Cholesterol LDL Cholesterol Direct HDL Cholesterol 25-OH Vitamin D Total PTH Intact Urine pH Urine WBC (Auto) Urine Creatinine Urine Total Protein Fluid Total Protein Vancomycin Trough Rheumatoid Factor Complement C4 Miscellaneous Test Crossmatch 11/28/16 11/28/16 11/28/16 12:31 16:09 23:46 WBC RBC Hgb Hct MCV MCH MCHC RDW Plt Count Lymph % (Auto) [place] % (Auto) Lymph # [place] # Baso # Seg Neutrophils % Seg Neuts % (Manual) Lymphocytes % (Manual) Monocytes % (Manual) Eosinophils % (Manual) Basophils % (Manual) Nucleated RBC % Seg Neutrophils # Seg Neutrophils # Man Lymphocytes # (Manual) Monocytes # (Manual) Eosinophils # (Manual) Basophils # (Manual) PT INR Fibrinogen dRVVT Confirm Interp Factor V Activity POC ABG pH POC ABG pCO2 POC ABG pO2 ABG pO2 ABG HCO3 ABG Base Excess ABG Hemoglobin Oxyhemoglobin Sodium Potassium Chloride Carbon Dioxide BUN Creatinine Glucose POC Glucose 126 H 111 H 119 H Lactic Acid Calcium Ionized Calcium Phosphorus Magnesium Direct Bilirubin AST ALT Alkaline Phosphatase Lactate Dehydrogenase Troponin T C-Reactive Protein Total Protein Albumin Prealbumin Triglycerides Cholesterol LDL Cholesterol Direct HDL Cholesterol 25-OH Vitamin D Total PTH Intact Urine pH Urine WBC (Auto) Urine Creatinine Urine Total Protein Fluid Total Protein Vancomycin Trough Rheumatoid Factor Complement C4 Miscellaneous Test Crossmatch 11/29/16 11/29/16 11/29/16 03:33 04:52 05:10 WBC RBC Hgb Hct MCV MCH MCHC RDW Plt Count Lymph % (Auto) [place] % (Auto) Lymph # [place] # Baso # Seg Neutrophils % Seg Neuts % (Manual) Lymphocytes % (Manual) Monocytes % (Manual) Eosinophils % (Manual) Basophils % (Manual) Nucleated RBC % Seg Neutrophils # Seg Neutrophils # Man Lymphocytes # (Manual) Monocytes # (Manual) Eosinophils # (Manual) Basophils # (Manual) PT INR Fibrinogen dRVVT Confirm Interp Factor V Activity POC ABG pH POC ABG pCO2 POC ABG pO2 ABG pO2 ABG HCO3 ABG Base Excess ABG Hemoglobin 7.0 L Oxyhemoglobin 94.9 L Sodium Potassium Chloride Carbon Dioxide BUN 73 H Creatinine 2.7 H Glucose POC Glucose 108 H Lactic Acid Calcium Ionized Calcium Phosphorus Magnesium Direct Bilirubin AST ALT Alkaline Phosphatase Lactate Dehydrogenase Troponin T C-Reactive Protein Total Protein Albumin Prealbumin Triglycerides Cholesterol LDL Cholesterol Direct HDL Cholesterol 25-OH Vitamin D Total PTH Intact Urine pH Urine WBC (Auto) Urine Creatinine Urine Total Protein Fluid Total Protein Vancomycin Trough Rheumatoid Factor Complement C4 Miscellaneous Test Crossmatch 11/29/16 11/29/16 11/29/16 12:16 18:05 23:46 WBC RBC Hgb Hct MCV MCH MCHC RDW Plt Count Lymph % (Auto) [place] % (Auto) Lymph # [place] # Baso # Seg Neutrophils % Seg Neuts % (Manual) Lymphocytes % (Manual) Monocytes % (Manual) Eosinophils % (Manual) Basophils % (Manual) Nucleated RBC % Seg Neutrophils # Seg Neutrophils # Man Lymphocytes # (Manual) Monocytes # (Manual) Eosinophils # (Manual) Basophils # (Manual) PT INR Fibrinogen dRVVT Confirm Interp Factor V Activity POC ABG pH POC ABG pCO2 POC ABG pO2 ABG pO2 ABG HCO3 ABG Base Excess ABG Hemoglobin Oxyhemoglobin Sodium Potassium Chloride Carbon Dioxide BUN Creatinine Glucose POC Glucose 133 H 146 H 141 H Lactic Acid Calcium Ionized Calcium Phosphorus Magnesium Direct Bilirubin AST ALT Alkaline Phosphatase Lactate Dehydrogenase Troponin T C-Reactive Protein Total Protein Albumin Prealbumin Triglycerides Cholesterol LDL Cholesterol Direct HDL Cholesterol 25-OH Vitamin D Total PTH Intact Urine pH Urine WBC (Auto) Urine Creatinine Urine Total Protein Fluid Total Protein Vancomycin Trough Rheumatoid Factor Complement C4 Miscellaneous Test Crossmatch 11/30/16 11/30/16 11/30/16 04:17 04:17 04:32 WBC 12.0 H RBC 2.80 L Hgb 7.8 L Hct 23.6 L MCV MCH MCHC RDW 16.6 H Plt Count Lymph % (Auto) [place] % (Auto) 11.3 H Lymph # [place] # 1.4 H Baso # Seg Neutrophils % Seg Neuts % (Manual) Lymphocytes % (Manual) Monocytes % (Manual) Eosinophils % (Manual) Basophils % (Manual) Nucleated RBC % Seg Neutrophils # 8.2 H Seg Neutrophils # Man Lymphocytes # (Manual) Monocytes # (Manual) Eosinophils # (Manual) Basophils # (Manual) PT INR Fibrinogen dRVVT Confirm Interp Factor V Activity POC ABG pH POC ABG pCO2 POC ABG pO2 ABG pO2 ABG HCO3 ABG Base Excess ABG Hemoglobin Oxyhemoglobin Sodium 169 H* D Potassium 5.1 H Chloride 121.5 H Carbon Dioxide BUN 34 H Creatinine 1.3 H D Glucose 133 H POC Glucose 131 H Lactic Acid Calcium 10.3 H Ionized Calcium Phosphorus Magnesium Direct Bilirubin AST ALT Alkaline Phosphatase Lactate Dehydrogenase Troponin T C-Reactive Protein Total Protein Albumin Prealbumin Triglycerides Cholesterol LDL Cholesterol Direct HDL Cholesterol 25-OH Vitamin D Total PTH Intact Urine pH Urine WBC (Auto) Urine Creatinine Urine Total Protein Fluid Total Protein Vancomycin Trough Rheumatoid Factor Complement C4 Miscellaneous Test Crossmatch 11/30/16 11/30/16 11/30/16 05:45 11:10 17:26 WBC RBC Hgb Hct MCV MCH MCHC RDW Plt Count Lymph % (Auto) [place] % (Auto) Lymph # [place] # Baso # Seg Neutrophils % Seg Neuts % (Manual) Lymphocytes % (Manual) Monocytes % (Manual) Eosinophils % (Manual) Basophils % (Manual) Nucleated RBC % Seg Neutrophils # Seg Neutrophils # Man Lymphocytes # (Manual) Monocytes # (Manual) Eosinophils # (Manual) Basophils # (Manual) PT INR Fibrinogen dRVVT Confirm Interp Factor V Activity POC ABG pH POC ABG pCO2 POC ABG pO2 ABG pO2 ABG HCO3 ABG Base Excess ABG Hemoglobin Oxyhemoglobin Sodium Potassium Chloride Carbon Dioxide BUN 45 H Creatinine 1.6 H Glucose 131 H POC Glucose 146 H 134 H Lactic Acid Calcium Ionized Calcium Phosphorus Magnesium Direct Bilirubin AST ALT Alkaline Phosphatase Lactate Dehydrogenase Troponin T C-Reactive Protein Total Protein Albumin Prealbumin Triglycerides Cholesterol LDL Cholesterol Direct HDL Cholesterol 25-OH Vitamin D Total PTH Intact Urine pH Urine WBC (Auto) Urine Creatinine Urine Total Protein Fluid Total Protein Vancomycin Trough Rheumatoid Factor Complement C4 Miscellaneous Test Crossmatch 11/30/16 12/01/16 12/01/16 23:35 00:06 03:35 WBC RBC Hgb Hct MCV MCH MCHC RDW Plt Count Lymph % (Auto) [place] % (Auto) Lymph # [place] # Baso # Seg Neutrophils % Seg Neuts % (Manual) Lymphocytes % (Manual) Monocytes % (Manual) Eosinophils % (Manual) Basophils % (Manual) Nucleated RBC % Seg Neutrophils # Seg Neutrophils # Man Lymphocytes # (Manual) Monocytes # (Manual) Eosinophils # (Manual) Basophils # (Manual) PT INR Fibrinogen dRVVT Confirm Interp Factor V Activity POC ABG pH POC ABG pCO2 POC ABG pO2 ABG pO2 ABG HCO3 ABG Base Excess ABG Hemoglobin 6.9 L Oxyhemoglobin Sodium Potassium Chloride Carbon Dioxide BUN 58 H Creatinine 1.8 H Glucose 146 H POC Glucose 151 H Lactic Acid Calcium Ionized Calcium Phosphorus Magnesium Direct Bilirubin AST ALT Alkaline Phosphatase Lactate Dehydrogenase Troponin T C-Reactive Protein Total Protein Albumin Prealbumin Triglycerides Cholesterol LDL Cholesterol Direct HDL Cholesterol 25-OH Vitamin D Total PTH Intact Urine pH Urine WBC (Auto) Urine Creatinine Urine Total Protein Fluid Total Protein Vancomycin Trough Rheumatoid Factor Complement C4 Miscellaneous Test Crossmatch 12/01/16 12/01/16 12/01/16 03:35 05:47 11:52 WBC 12.3 H RBC 2.82 L Hgb 7.8 L Hct 23.7 L MCV MCH MCHC RDW 16.7 H Plt Count Lymph % (Auto) [place] % (Auto) 9.8 H Lymph # [place] # 1.2 H Baso # Seg Neutrophils % Seg Neuts % (Manual) Lymphocytes % (Manual) Monocytes % (Manual) Eosinophils % (Manual) Basophils % (Manual) Nucleated RBC % Seg Neutrophils # 8.4 H Seg Neutrophils # Man Lymphocytes # (Manual) Monocytes # (Manual) Eosinophils # (Manual) Basophils # (Manual) PT INR Fibrinogen dRVVT Confirm Interp Factor V Activity POC ABG pH POC ABG pCO2 POC ABG pO2 ABG pO2 ABG HCO3 ABG Base Excess ABG Hemoglobin Oxyhemoglobin Sodium Potassium Chloride Carbon Dioxide BUN Creatinine Glucose POC Glucose 152 H 152 H Lactic Acid Calcium Ionized Calcium Phosphorus Magnesium Direct Bilirubin AST ALT Alkaline Phosphatase Lactate Dehydrogenase Troponin T C-Reactive Protein Total Protein Albumin Prealbumin Triglycerides Cholesterol LDL Cholesterol Direct HDL Cholesterol 25-OH Vitamin D Total PTH Intact Urine pH Urine WBC (Auto) Urine Creatinine Urine Total Protein Fluid Total Protein Vancomycin Trough Rheumatoid Factor Complement C4 Miscellaneous Test Crossmatch 12/01/16 12/01/16 12/02/16 17:40 23:41 05:00 WBC RBC Hgb Hct MCV MCH MCHC RDW Plt Count Lymph % (Auto) [place] % (Auto) Lymph # [place] # Baso # Seg Neutrophils % Seg Neuts % (Manual) Lymphocytes % (Manual) Monocytes % (Manual) Eosinophils % (Manual) Basophils % (Manual) Nucleated RBC % Seg Neutrophils # Seg Neutrophils # Man Lymphocytes # (Manual) Monocytes # (Manual) Eosinophils # (Manual) Basophils # (Manual) PT INR Fibrinogen dRVVT Confirm Interp Factor V Activity POC ABG pH POC ABG pCO2 POC ABG pO2 ABG pO2 ABG HCO3 ABG Base Excess ABG Hemoglobin Oxyhemoglobin Sodium Potassium Chloride Carbon Dioxide BUN 45 H Creatinine Glucose 115 H POC Glucose 140 H 144 H Lactic Acid Calcium Ionized Calcium Phosphorus Magnesium Direct Bilirubin AST ALT Alkaline Phosphatase Lactate Dehydrogenase Troponin T C-Reactive Protein Total Protein Albumin Prealbumin Triglycerides Cholesterol LDL Cholesterol Direct HDL Cholesterol 25-OH Vitamin D Total PTH Intact Urine pH Urine WBC (Auto) Urine Creatinine Urine Total Protein Fluid Total Protein Vancomycin Trough Rheumatoid Factor Complement C4 Miscellaneous Test Crossmatch 12/02/16 12/02/16 12/02/16 05:31 11:20 17:38 WBC RBC Hgb Hct MCV MCH MCHC RDW Plt Count Lymph % (Auto) [place] % (Auto) Lymph # [place] # Baso # Seg Neutrophils % Seg Neuts % (Manual) Lymphocytes % (Manual) Monocytes % (Manual) Eosinophils % (Manual) Basophils % (Manual) Nucleated RBC % Seg Neutrophils # Seg Neutrophils # Man Lymphocytes # (Manual) Monocytes # (Manual) Eosinophils # (Manual) Basophils # (Manual) PT INR Fibrinogen dRVVT Confirm Interp Factor V Activity POC ABG pH POC ABG pCO2 POC ABG pO2 ABG pO2 ABG HCO3 ABG Base Excess ABG Hemoglobin Oxyhemoglobin Sodium Potassium Chloride Carbon Dioxide BUN Creatinine Glucose POC Glucose 136 H 177 H 139 H Lactic Acid Calcium Ionized Calcium Phosphorus Magnesium Direct Bilirubin AST ALT Alkaline Phosphatase Lactate Dehydrogenase Troponin T C-Reactive Protein Total Protein Albumin Prealbumin Triglycerides Cholesterol LDL Cholesterol Direct HDL Cholesterol 25-OH Vitamin D Total PTH Intact Urine pH Urine WBC (Auto) Urine Creatinine Urine Total Protein Fluid Total Protein Vancomycin Trough Rheumatoid Factor Complement C4 Miscellaneous Test Crossmatch 12/02/16 12/03/16 12/03/16 23:43 04:00 04:00 WBC 20.4 H RBC 2.74 L Hgb 7.4 L Hct 23.6 L MCV MCH 27 L MCHC RDW 17.1 H Plt Count Lymph % (Auto) [place] % (Auto) Lymph # [place] # Baso # Seg Neutrophils % Seg Neuts % (Manual) 31.0 L Lymphocytes % (Manual) Monocytes % (Manual) Eosinophils % (Manual) Basophils % (Manual) Nucleated RBC % Seg Neutrophils # Seg Neutrophils # Man Lymphocytes # (Manual) Monocytes # (Manual) Eosinophils # (Manual) Basophils # (Manual) PT INR Fibrinogen dRVVT Confirm Interp Factor V Activity POC ABG pH POC ABG pCO2 POC ABG pO2 ABG pO2 ABG HCO3 ABG Base Excess ABG Hemoglobin Oxyhemoglobin Sodium Potassium Chloride Carbon Dioxide BUN 61 H Creatinine 1.6 H Glucose 119 H POC Glucose 158 H Lactic Acid Calcium Ionized Calcium Phosphorus Magnesium Direct Bilirubin AST ALT Alkaline Phosphatase Lactate Dehydrogenase Troponin T C-Reactive Protein Total Protein Albumin Prealbumin Triglycerides Cholesterol LDL Cholesterol Direct HDL Cholesterol 25-OH Vitamin D Total PTH Intact Urine pH Urine WBC (Auto) Urine Creatinine Urine Total Protein Fluid Total Protein Vancomycin Trough Rheumatoid Factor Complement C4 Miscellaneous Test Crossmatch 12/03/16 12/03/16 12/03/16 05:02 12:11 18:16 WBC RBC Hgb Hct MCV MCH MCHC RDW Plt Count Lymph % (Auto) [place] % (Auto) Lymph # [place] # Baso # Seg Neutrophils % Seg Neuts % (Manual) Lymphocytes % (Manual) Monocytes % (Manual) Eosinophils % (Manual) Basophils % (Manual) Nucleated RBC % Seg Neutrophils # Seg Neutrophils # Man Lymphocytes # (Manual) Monocytes # (Manual) Eosinophils # (Manual) Basophils # (Manual) PT INR Fibrinogen dRVVT Confirm Interp Factor V Activity POC ABG pH POC ABG pCO2 POC ABG pO2 ABG pO2 ABG HCO3 ABG Base Excess ABG Hemoglobin Oxyhemoglobin Sodium Potassium Chloride Carbon Dioxide BUN Creatinine Glucose POC Glucose 146 H 157 H 124 H Lactic Acid Calcium Ionized Calcium Phosphorus Magnesium Direct Bilirubin AST ALT Alkaline Phosphatase Lactate Dehydrogenase Troponin T C-Reactive Protein Total Protein Albumin Prealbumin Triglycerides Cholesterol LDL Cholesterol Direct HDL Cholesterol 25-OH Vitamin D Total PTH Intact Urine pH Urine WBC (Auto) Urine Creatinine Urine Total Protein Fluid Total Protein Vancomycin Trough Rheumatoid Factor Complement C4 Miscellaneous Test Crossmatch 12/03/16 12/04/16 12/04/16 23:41 04:00 04:45 WBC RBC Hgb Hct MCV MCH MCHC RDW Plt Count Lymph % (Auto) [place] % (Auto) Lymph # [place] # Baso # Seg Neutrophils % Seg Neuts % (Manual) Lymphocytes % (Manual) Monocytes % (Manual) Eosinophils % (Manual) Basophils % (Manual) Nucleated RBC % Seg Neutrophils # Seg Neutrophils # Man Lymphocytes # (Manual) Monocytes # (Manual) Eosinophils # (Manual) Basophils # (Manual) PT INR Fibrinogen dRVVT Confirm Interp Factor V Activity POC ABG pH POC ABG pCO2 POC ABG pO2 ABG pO2 ABG HCO3 ABG Base Excess ABG Hemoglobin Oxyhemoglobin Sodium Potassium Chloride Carbon Dioxide BUN 76 H Creatinine 1.6 H Glucose POC Glucose 130 H 136 H Lactic Acid Calcium Ionized Calcium Phosphorus Magnesium Direct Bilirubin AST ALT Alkaline Phosphatase 155 H Lactate Dehydrogenase Troponin T C-Reactive Protein Total Protein 5.5 L Albumin 1.5 L Prealbumin Triglycerides Cholesterol LDL Cholesterol Direct HDL Cholesterol 25-OH Vitamin D Total PTH Intact Urine pH Urine WBC (Auto) Urine Creatinine Urine Total Protein Fluid Total Protein Vancomycin Trough Rheumatoid Factor Complement C4 Miscellaneous Test Crossmatch 12/04/16 12/04/16 12/05/16 12:08 17:23 00:10 WBC RBC Hgb Hct MCV MCH MCHC RDW Plt Count Lymph % (Auto) [place] % (Auto) Lymph # [place] # Baso # Seg Neutrophils % Seg Neuts % (Manual) Lymphocytes % (Manual) Monocytes % (Manual) Eosinophils % (Manual) Basophils % (Manual) Nucleated RBC % Seg Neutrophils # Seg Neutrophils # Man Lymphocytes # (Manual) Monocytes # (Manual) Eosinophils # (Manual) Basophils # (Manual) PT INR Fibrinogen dRVVT Confirm Interp Factor V Activity POC ABG pH POC ABG pCO2 POC ABG pO2 ABG pO2 ABG HCO3 ABG Base Excess ABG Hemoglobin Oxyhemoglobin Sodium Potassium Chloride Carbon Dioxide BUN Creatinine Glucose POC Glucose 114 H 129 H 124 H Lactic Acid Calcium Ionized Calcium Phosphorus Magnesium Direct Bilirubin AST ALT Alkaline Phosphatase Lactate Dehydrogenase Troponin T C-Reactive Protein Total Protein Albumin Prealbumin Triglycerides Cholesterol LDL Cholesterol Direct HDL Cholesterol 25-OH Vitamin D Total PTH Intact Urine pH Urine WBC (Auto) Urine Creatinine Urine Total Protein Fluid Total Protein Vancomycin Trough Rheumatoid Factor Complement C4 Miscellaneous Test Crossmatch 12/05/16 12/05/16 12/05/16 05:00 05:00 05:18 WBC RBC Hgb Hct MCV MCH MCHC RDW Plt Count Lymph % (Auto) [place] % (Auto) Lymph # [place] # Baso # Seg Neutrophils % Seg Neuts % (Manual) Lymphocytes % (Manual) Monocytes % (Manual) Eosinophils % (Manual) Basophils % (Manual) Nucleated RBC % Seg Neutrophils # Seg Neutrophils # Man Lymphocytes # (Manual) Monocytes # (Manual) Eosinophils # (Manual) Basophils # (Manual) PT INR Fibrinogen dRVVT Confirm Interp Factor V Activity POC ABG pH POC ABG pCO2 POC ABG pO2 ABG pO2 ABG HCO3 ABG Base Excess ABG Hemoglobin Oxyhemoglobin Sodium Potassium Chloride Carbon Dioxide 21 L BUN 85 H Creatinine 1.9 H Glucose 131 H POC Glucose 154 H Lactic Acid Calcium Ionized Calcium Phosphorus Magnesium Direct Bilirubin AST ALT Alkaline Phosphatase Lactate Dehydrogenase Troponin T C-Reactive Protein 19.30 H Total Protein Albumin Prealbumin Triglycerides Cholesterol LDL Cholesterol Direct HDL Cholesterol 25-OH Vitamin D Total PTH Intact Urine pH Urine WBC (Auto) Urine Creatinine Urine Total Protein Fluid Total Protein Vancomycin Trough Rheumatoid Factor Complement C4 Miscellaneous Test Crossmatch 12/05/16 12/05/16 12/05/16 11:43 17:46 23:25 WBC RBC Hgb Hct MCV MCH MCHC RDW Plt Count Lymph % (Auto) [place] % (Auto) Lymph # [place] # Baso # Seg Neutrophils % Seg Neuts % (Manual) Lymphocytes % (Manual) Monocytes % (Manual) Eosinophils % (Manual) Basophils % (Manual) Nucleated RBC % Seg Neutrophils # Seg Neutrophils # Man Lymphocytes # (Manual) Monocytes # (Manual) Eosinophils # (Manual) Basophils # (Manual) PT INR Fibrinogen dRVVT Confirm Interp Factor V Activity POC ABG pH POC ABG pCO2 POC ABG pO2 ABG pO2 ABG HCO3 ABG Base Excess ABG Hemoglobin Oxyhemoglobin Sodium Potassium Chloride Carbon Dioxide BUN Creatinine Glucose POC Glucose 117 H 113 H 111 H Lactic Acid Calcium Ionized Calcium Phosphorus Magnesium Direct Bilirubin AST ALT Alkaline Phosphatase Lactate Dehydrogenase Troponin T C-Reactive Protein Total Protein Albumin Prealbumin Triglycerides Cholesterol LDL Cholesterol Direct HDL Cholesterol 25-OH Vitamin D Total PTH Intact Urine pH Urine WBC (Auto) Urine Creatinine Urine Total Protein Fluid Total Protein Vancomycin Trough Rheumatoid Factor Complement C4 Miscellaneous Test Crossmatch 12/05/16 12/06/16 12/06/16 Unknown 04:58 06:00 WBC RBC Hgb Hct MCV MCH MCHC RDW Plt Count Lymph % (Auto) [place] % (Auto) Lymph # [place] # Baso # Seg Neutrophils % Seg Neuts % (Manual) Lymphocytes % (Manual) Monocytes % (Manual) Eosinophils % (Manual) Basophils % (Manual) Nucleated RBC % Seg Neutrophils # Seg Neutrophils # Man Lymphocytes # (Manual) Monocytes # (Manual) Eosinophils # (Manual) Basophils # (Manual) PT INR Fibrinogen dRVVT Confirm Interp Factor V Activity POC ABG pH POC ABG pCO2 POC ABG pO2 ABG pO2 75.2 L ABG HCO3 ABG Base Excess -3.4 L ABG Hemoglobin 7.4 L Oxyhemoglobin 94.5 L Sodium Potassium Chloride Carbon Dioxide 20 L BUN 99 H Creatinine 2.1 H Glucose 126 H POC Glucose 145 H Lactic Acid Calcium Ionized Calcium Phosphorus 4.80 H Magnesium Direct Bilirubin AST ALT Alkaline Phosphatase Lactate Dehydrogenase Troponin T C-Reactive Protein Total Protein Albumin Prealbumin Triglycerides Cholesterol LDL Cholesterol Direct HDL Cholesterol 25-OH Vitamin D Total PTH Intact Urine pH Urine WBC (Auto) Urine Creatinine Urine Total Protein Fluid Total Protein Vancomycin Trough Rheumatoid Factor Complement C4 Miscellaneous Test Crossmatch 12/06/16 12/06/16 12/06/16 06:46 11:54 17:55 WBC RBC Hgb 8.3 L Hct 26.4 L MCV MCH MCHC RDW Plt Count Lymph % (Auto) [place] % (Auto) Lymph # [place] # Baso # Seg Neutrophils % Seg Neuts % (Manual) Lymphocytes % (Manual) Monocytes % (Manual) Eosinophils % (Manual) Basophils % (Manual) Nucleated RBC % Seg Neutrophils # Seg Neutrophils # Man Lymphocytes # (Manual) Monocytes # (Manual) Eosinophils # (Manual) Basophils # (Manual) PT INR Fibrinogen dRVVT Confirm Interp Factor V Activity POC ABG pH POC ABG pCO2 POC ABG pO2 ABG pO2 ABG HCO3 ABG Base Excess ABG Hemoglobin Oxyhemoglobin Sodium Potassium Chloride Carbon Dioxide BUN Creatinine Glucose POC Glucose 126 H 157 H Lactic Acid Calcium Ionized Calcium Phosphorus Magnesium Direct Bilirubin AST ALT Alkaline Phosphatase Lactate Dehydrogenase Troponin T C-Reactive Protein Total Protein Albumin Prealbumin Triglycerides Cholesterol LDL Cholesterol Direct HDL Cholesterol 25-OH Vitamin D Total PTH Intact Urine pH Urine WBC (Auto) Urine Creatinine Urine Total Protein Fluid Total Protein Vancomycin Trough Rheumatoid Factor Complement C4 Miscellaneous Test Crossmatch 12/06/16 12/07/16 12/07/16 23:59 05:34 06:30 WBC RBC Hgb Hct MCV MCH MCHC RDW Plt Count Lymph % (Auto) [place] % (Auto) Lymph # [place] # Baso # Seg Neutrophils % Seg Neuts % (Manual) Lymphocytes % (Manual) Monocytes % (Manual) Eosinophils % (Manual) Basophils % (Manual) Nucleated RBC % Seg Neutrophils # Seg Neutrophils # Man Lymphocytes # (Manual) Monocytes # (Manual) Eosinophils # (Manual) Basophils # (Manual) PT INR Fibrinogen dRVVT Confirm Interp Factor V Activity POC ABG pH POC ABG pCO2 POC ABG pO2 ABG pO2 ABG HCO3 ABG Base Excess ABG Hemoglobin Oxyhemoglobin Sodium Potassium Chloride Carbon Dioxide BUN 67 H Creatinine 1.4 H Glucose 126 H POC Glucose 129 H 129 H Lactic Acid Calcium Ionized Calcium Phosphorus Magnesium Direct Bilirubin AST ALT Alkaline Phosphatase Lactate Dehydrogenase Troponin T C-Reactive Protein Total Protein Albumin Prealbumin Triglycerides Cholesterol LDL Cholesterol Direct HDL Cholesterol 25-OH Vitamin D Total PTH Intact Urine pH Urine WBC (Auto) Urine Creatinine Urine Total Protein Fluid Total Protein Vancomycin Trough Rheumatoid Factor Complement C4 Miscellaneous Test Crossmatch 12/07/16 12/07/16 12/07/16 06:30 08:00 09:45 WBC 18.8 H RBC 2.52 L Hgb 6.9 L 6.8 L Hct 21.2 L 21.1 L MCV MCH 27 L MCHC RDW 18.0 H Plt Count Lymph % (Auto) [place] % (Auto) 9.9 H Lymph # [place] # 1.9 H Baso # Seg Neutrophils % 71.8 H Seg Neuts % (Manual) Lymphocytes % (Manual) Monocytes % (Manual) Eosinophils % (Manual) Basophils % (Manual) Nucleated RBC % Seg Neutrophils # 13.5 H Seg Neutrophils # Man Lymphocytes # (Manual) Monocytes # (Manual) Eosinophils # (Manual) Basophils # (Manual) PT INR Fibrinogen dRVVT Confirm Interp Factor V Activity POC ABG pH POC ABG pCO2 POC ABG pO2 ABG pO2 ABG HCO3 ABG Base Excess ABG Hemoglobin Oxyhemoglobin Sodium Potassium Chloride Carbon Dioxide BUN Creatinine Glucose POC Glucose Lactic Acid Calcium Ionized Calcium Phosphorus Magnesium Direct Bilirubin AST ALT Alkaline Phosphatase Lactate Dehydrogenase Troponin T C-Reactive Protein Total Protein Albumin Prealbumin Triglycerides Cholesterol LDL Cholesterol Direct HDL Cholesterol 25-OH Vitamin D Total PTH Intact Urine pH Urine WBC (Auto) Urine Creatinine Urine Total Protein Fluid Total Protein Vancomycin Trough Rheumatoid Factor Complement C4 Miscellaneous Test Crossmatch See Detail 12/07/16 12/07/16 12/07/16 11:44 18:19 23:59 WBC RBC Hgb Hct MCV MCH MCHC RDW Plt Count Lymph % (Auto) [place] % (Auto) Lymph # [place] # Baso # Seg Neutrophils % Seg Neuts % (Manual) Lymphocytes % (Manual) Monocytes % (Manual) Eosinophils % (Manual) Basophils % (Manual) Nucleated RBC % Seg Neutrophils # Seg Neutrophils # Man Lymphocytes # (Manual) Monocytes # (Manual) Eosinophils # (Manual) Basophils # (Manual) PT INR Fibrinogen dRVVT Confirm Interp Factor V Activity POC ABG pH POC ABG pCO2 POC ABG pO2 ABG pO2 ABG HCO3 ABG Base Excess ABG Hemoglobin Oxyhemoglobin Sodium Potassium Chloride Carbon Dioxide BUN Creatinine Glucose POC Glucose 137 H 138 H 133 H Lactic Acid Calcium Ionized Calcium Phosphorus Magnesium Direct Bilirubin AST ALT Alkaline Phosphatase Lactate Dehydrogenase Troponin T C-Reactive Protein Total Protein Albumin Prealbumin Triglycerides Cholesterol LDL Cholesterol Direct HDL Cholesterol 25-OH Vitamin D Total PTH Intact Urine pH Urine WBC (Auto) Urine Creatinine Urine Total Protein Fluid Total Protein Vancomycin Trough Rheumatoid Factor Complement C4 Miscellaneous Test Crossmatch 12/08/16 12/08/16 12/08/16 05:25 05:30 05:30 WBC 23.8 H RBC 2.88 L Hgb 8.1 L Hct 24.3 L MCV MCH MCHC RDW 16.7 H Plt Count Lymph % (Auto) [place] % (Auto) Lymph # [place] # Baso # Seg Neutrophils % Seg Neuts % (Manual) 76.0 H Lymphocytes % (Manual) 9.0 L Monocytes % (Manual) 9.0 H Eosinophils % (Manual) Basophils % (Manual) Nucleated RBC % Seg Neutrophils # Seg Neutrophils # Man 18.1 H Lymphocytes # (Manual) Monocytes # (Manual) 2.1 H Eosinophils # (Manual) Basophils # (Manual) PT INR Fibrinogen dRVVT Confirm Interp Factor V Activity POC ABG pH POC ABG pCO2 POC ABG pO2 ABG pO2 ABG HCO3 ABG Base Excess ABG Hemoglobin Oxyhemoglobin Sodium Potassium Chloride Carbon Dioxide 21 L BUN 76 H Creatinine 1.6 H Glucose 133 H POC Glucose 177 H Lactic Acid Calcium Ionized Calcium Phosphorus Magnesium Direct Bilirubin AST ALT Alkaline Phosphatase Lactate Dehydrogenase Troponin T C-Reactive Protein Total Protein Albumin Prealbumin Triglycerides Cholesterol LDL Cholesterol Direct HDL Cholesterol 25-OH Vitamin D Total PTH Intact Urine pH Urine WBC (Auto) Urine Creatinine Urine Total Protein Fluid Total Protein Vancomycin Trough Rheumatoid Factor Complement C4 Miscellaneous Test Crossmatch 12/08/16 12/08/16 12/09/16 11:45 18:00 00:00 WBC RBC Hgb Hct MCV MCH MCHC RDW Plt Count Lymph % (Auto) [place] % (Auto) Lymph # [place] # Baso # Seg Neutrophils % Seg Neuts % (Manual) Lymphocytes % (Manual) Monocytes % (Manual) Eosinophils % (Manual) Basophils % (Manual) Nucleated RBC % Seg Neutrophils # Seg Neutrophils # Man Lymphocytes # (Manual) Monocytes # (Manual) Eosinophils # (Manual) Basophils # (Manual) PT INR Fibrinogen dRVVT Confirm Interp Factor V Activity POC ABG pH POC ABG pCO2 POC ABG pO2 ABG pO2 ABG HCO3 ABG Base Excess ABG Hemoglobin Oxyhemoglobin Sodium Potassium Chloride Carbon Dioxide BUN Creatinine Glucose POC Glucose 163 H 123 H 137 H Lactic Acid Calcium Ionized Calcium Phosphorus Magnesium Direct Bilirubin AST ALT Alkaline Phosphatase Lactate Dehydrogenase Troponin T C-Reactive Protein Total Protein Albumin Prealbumin Triglycerides Cholesterol LDL Cholesterol Direct HDL Cholesterol 25-OH Vitamin D Total PTH Intact Urine pH Urine WBC (Auto) Urine Creatinine Urine Total Protein Fluid Total Protein Vancomycin Trough Rheumatoid Factor Complement C4 Miscellaneous Test Crossmatch 12/09/16 12/09/16 12/09/16 05:34 06:00 06:00 WBC 15.5 H RBC 2.87 L Hgb 8.0 L Hct 24.2 L MCV MCH MCHC RDW 17.2 H Plt Count Lymph % (Auto) [place] % (Auto) 11.6 H Lymph # [place] # 1.8 H Baso # Seg Neutrophils % 70.8 H Seg Neuts % (Manual) Lymphocytes % (Manual) Monocytes % (Manual) Eosinophils % (Manual) Basophils % (Manual) Nucleated RBC % Seg Neutrophils # 11.0 H Seg Neutrophils # Man Lymphocytes # (Manual) Monocytes # (Manual) Eosinophils # (Manual) Basophils # (Manual) PT INR Fibrinogen dRVVT Confirm Interp Factor V Activity POC ABG pH POC ABG pCO2 POC ABG pO2 ABG pO2 ABG HCO3 ABG Base Excess ABG Hemoglobin Oxyhemoglobin Sodium Potassium Chloride Carbon Dioxide BUN 51 H Creatinine Glucose 117 H POC Glucose 136 H Lactic Acid Calcium Ionized Calcium Phosphorus Magnesium Direct Bilirubin AST ALT Alkaline Phosphatase Lactate Dehydrogenase Troponin T C-Reactive Protein Total Protein Albumin Prealbumin Triglycerides Cholesterol LDL Cholesterol Direct HDL Cholesterol 25-OH Vitamin D Total PTH Intact Urine pH Urine WBC (Auto) Urine Creatinine Urine Total Protein Fluid Total Protein Vancomycin Trough Rheumatoid Factor Complement C4 Miscellaneous Test Crossmatch 12/09/16 12/09/16 12/09/16 12:29 17:52 23:10 WBC RBC Hgb Hct MCV MCH MCHC RDW Plt Count Lymph % (Auto) [place] % (Auto) Lymph # [place] # Baso # Seg Neutrophils % Seg Neuts % (Manual) Lymphocytes % (Manual) Monocytes % (Manual) Eosinophils % (Manual) Basophils % (Manual) Nucleated RBC % Seg Neutrophils # Seg Neutrophils # Man Lymphocytes # (Manual) Monocytes # (Manual) Eosinophils # (Manual) Basophils # (Manual) PT INR Fibrinogen dRVVT Confirm Interp Factor V Activity POC ABG pH POC ABG pCO2 POC ABG pO2 ABG pO2 ABG HCO3 ABG Base Excess ABG Hemoglobin Oxyhemoglobin Sodium Potassium Chloride Carbon Dioxide BUN Creatinine Glucose POC Glucose 139 H 140 H 129 H Lactic Acid Calcium Ionized Calcium Phosphorus Magnesium Direct Bilirubin AST ALT Alkaline Phosphatase Lactate Dehydrogenase Troponin T C-Reactive Protein Total Protein Albumin Prealbumin Triglycerides Cholesterol LDL Cholesterol Direct HDL Cholesterol 25-OH Vitamin D Total PTH Intact Urine pH Urine WBC (Auto) Urine Creatinine Urine Total Protein Fluid Total Protein Vancomycin Trough Rheumatoid Factor Complement C4 Miscellaneous Test Crossmatch 12/10/16 12/10/16 12/10/16 05:00 05:00 06:54 WBC 15.7 H RBC 2.87 L Hgb 8.2 L Hct 24.4 L MCV MCH MCHC RDW 17.2 H Plt Count Lymph % (Auto) [place] % (Auto) 8.3 H Lymph # [place] # 1.3 H Baso # Seg Neutrophils % 72.8 H Seg Neuts % (Manual) Lymphocytes % (Manual) Monocytes % (Manual) Eosinophils % (Manual) Basophils % (Manual) Nucleated RBC % Seg Neutrophils # 11.4 H Seg Neutrophils # Man Lymphocytes # (Manual) Monocytes # (Manual) Eosinophils # (Manual) Basophils # (Manual) PT INR Fibrinogen dRVVT Confirm Interp Factor V Activity POC ABG pH POC ABG pCO2 POC ABG pO2 ABG pO2 ABG HCO3 ABG Base Excess ABG Hemoglobin Oxyhemoglobin Sodium Potassium Chloride Carbon Dioxide BUN 64 H Creatinine 1.4 H Glucose 134 H POC Glucose 154 H Lactic Acid Calcium Ionized Calcium Phosphorus Magnesium Direct Bilirubin AST ALT Alkaline Phosphatase Lactate Dehydrogenase Troponin T C-Reactive Protein Total Protein Albumin Prealbumin Triglycerides Cholesterol LDL Cholesterol Direct HDL Cholesterol 25-OH Vitamin D Total PTH Intact Urine pH Urine WBC (Auto) Urine Creatinine Urine Total Protein Fluid Total Protein Vancomycin Trough Rheumatoid Factor Complement C4 Miscellaneous Test Crossmatch 12/10/16 12/10/16 12/10/16 11:58 17:29 23:52 WBC RBC Hgb Hct MCV MCH MCHC RDW Plt Count Lymph % (Auto) [place] % (Auto) Lymph # [place] # Baso # Seg Neutrophils % Seg Neuts % (Manual) Lymphocytes % (Manual) Monocytes % (Manual) Eosinophils % (Manual) Basophils % (Manual) Nucleated RBC % Seg Neutrophils # Seg Neutrophils # Man Lymphocytes # (Manual) Monocytes # (Manual) Eosinophils # (Manual) Basophils # (Manual) PT INR Fibrinogen dRVVT Confirm Interp Factor V Activity POC ABG pH POC ABG pCO2 POC ABG pO2 ABG pO2 ABG HCO3 ABG Base Excess ABG Hemoglobin Oxyhemoglobin Sodium Potassium Chloride Carbon Dioxide BUN Creatinine Glucose POC Glucose 144 H 163 H 125 H Lactic Acid Calcium Ionized Calcium Phosphorus Magnesium Direct Bilirubin AST ALT Alkaline Phosphatase Lactate Dehydrogenase Troponin T C-Reactive Protein Total Protein Albumin Prealbumin Triglycerides Cholesterol LDL Cholesterol Direct HDL Cholesterol 25-OH Vitamin D Total PTH Intact Urine pH Urine WBC (Auto) Urine Creatinine Urine Total Protein Fluid Total Protein Vancomycin Trough Rheumatoid Factor Complement C4 Miscellaneous Test Crossmatch 12/11/16 12/11/16 12/11/16 05:38 06:30 06:30 WBC 14.4 H RBC 2.76 L Hgb 7.7 L Hct 23.4 L MCV MCH MCHC RDW 17.2 H Plt Count Lymph % (Auto) [place] % (Auto) 8.8 H Lymph # [place] # 1.3 H Baso # Seg Neutrophils % 72.5 H Seg Neuts % (Manual) Lymphocytes % (Manual) Monocytes % (Manual) Eosinophils % (Manual) Basophils % (Manual) Nucleated RBC % Seg Neutrophils # 10.5 H Seg Neutrophils # Man Lymphocytes # (Manual) Monocytes # (Manual) Eosinophils # (Manual) Basophils # (Manual) PT INR Fibrinogen dRVVT Confirm Interp Factor V Activity POC ABG pH POC ABG pCO2 POC ABG pO2 ABG pO2 ABG HCO3 ABG Base Excess ABG Hemoglobin Oxyhemoglobin Sodium Potassium Chloride Carbon Dioxide BUN 43 H Creatinine Glucose 124 H POC Glucose 141 H Lactic Acid Calcium 8.3 L Ionized Calcium Phosphorus Magnesium 1.60 L Direct Bilirubin AST ALT Alkaline Phosphatase Lactate Dehydrogenase Troponin T C-Reactive Protein Total Protein Albumin Prealbumin Triglycerides Cholesterol LDL Cholesterol Direct HDL Cholesterol 25-OH Vitamin D Total PTH Intact Urine pH Urine WBC (Auto) Urine Creatinine Urine Total Protein Fluid Total Protein Vancomycin Trough Rheumatoid Factor Complement C4 Miscellaneous Test Crossmatch 12/11/16 12/11/16 12/11/16 11:15 17:59 23:48 WBC RBC Hgb Hct MCV MCH MCHC RDW Plt Count Lymph % (Auto) [place] % (Auto) Lymph # [place] # Baso # Seg Neutrophils % Seg Neuts % (Manual) Lymphocytes % (Manual) Monocytes % (Manual) Eosinophils % (Manual) Basophils % (Manual) Nucleated RBC % Seg Neutrophils # Seg Neutrophils # Man Lymphocytes # (Manual) Monocytes # (Manual) Eosinophils # (Manual) Basophils # (Manual) PT INR Fibrinogen dRVVT Confirm Interp Factor V Activity POC ABG pH POC ABG pCO2 POC ABG pO2 ABG pO2 ABG HCO3 ABG Base Excess ABG Hemoglobin Oxyhemoglobin Sodium Potassium Chloride Carbon Dioxide BUN Creatinine Glucose POC Glucose 188 H 106 H 119 H Lactic Acid Calcium Ionized Calcium Phosphorus Magnesium Direct Bilirubin AST ALT Alkaline Phosphatase Lactate Dehydrogenase Troponin T C-Reactive Protein Total Protein Albumin Prealbumin Triglycerides Cholesterol LDL Cholesterol Direct HDL Cholesterol 25-OH Vitamin D Total PTH Intact Urine pH Urine WBC (Auto) Urine Creatinine Urine Total Protein Fluid Total Protein Vancomycin Trough Rheumatoid Factor Complement C4 Miscellaneous Test Crossmatch 12/12/16 12/12/16 12/12/16 05:00 06:01 12:20 WBC 16.7 H RBC 2.87 L Hgb 8.0 L Hct 24.2 L MCV MCH MCHC RDW 17.6 H Plt Count Lymph % (Auto) [place] % (Auto) Lymph # [place] # 1.2 H Baso # Seg Neutrophils % 75.3 H Seg Neuts % (Manual) Lymphocytes % (Manual) Monocytes % (Manual) Eosinophils % (Manual) Basophils % (Manual) Nucleated RBC % Seg Neutrophils # 12.6 H Seg Neutrophils # Man Lymphocytes # (Manual) Monocytes # (Manual) Eosinophils # (Manual) Basophils # (Manual) PT INR Fibrinogen dRVVT Confirm Interp Factor V Activity POC ABG pH POC ABG pCO2 POC ABG pO2 ABG pO2 ABG HCO3 ABG Base Excess ABG Hemoglobin Oxyhemoglobin Sodium Potassium Chloride Carbon Dioxide BUN Creatinine Glucose POC Glucose 134 H 149 H Lactic Acid Calcium Ionized Calcium Phosphorus Magnesium Direct Bilirubin AST ALT Alkaline Phosphatase Lactate Dehydrogenase Troponin T C-Reactive Protein Total Protein Albumin Prealbumin Triglycerides Cholesterol LDL Cholesterol Direct HDL Cholesterol 25-OH Vitamin D Total PTH Intact Urine pH Urine WBC (Auto) Urine Creatinine Urine Total Protein Fluid Total Protein Vancomycin Trough Rheumatoid Factor Complement C4 Miscellaneous Test Crossmatch 12/12/16 12/12/16 12/12/16 17:38 23:01 Unknown WBC RBC Hgb Hct MCV MCH MCHC RDW Plt Count Lymph % (Auto) [place] % (Auto) Lymph # [place] # Baso # Seg Neutrophils % Seg Neuts % (Manual) Lymphocytes % (Manual) Monocytes % (Manual) Eosinophils % (Manual) Basophils % (Manual) Nucleated RBC % Seg Neutrophils # Seg Neutrophils # Man Lymphocytes # (Manual) Monocytes # (Manual) Eosinophils # (Manual) Basophils # (Manual) PT INR Fibrinogen dRVVT Confirm Interp Factor V Activity POC ABG pH POC ABG pCO2 POC ABG pO2 ABG pO2 ABG HCO3 ABG Base Excess ABG Hemoglobin Oxyhemoglobin Sodium Potassium Chloride Carbon Dioxide BUN 60 H Creatinine 1.3 H Glucose 126 H POC Glucose 127 H 144 H Lactic Acid Calcium Ionized Calcium Phosphorus Magnesium Direct Bilirubin AST ALT Alkaline Phosphatase Lactate Dehydrogenase Troponin T C-Reactive Protein Total Protein Albumin Prealbumin Triglycerides Cholesterol LDL Cholesterol Direct HDL Cholesterol 25-OH Vitamin D Total PTH Intact Urine pH Urine WBC (Auto) Urine Creatinine Urine Total Protein Fluid Total Protein Vancomycin Trough Rheumatoid Factor Complement C4 Miscellaneous Test Crossmatch 12/13/16 12/13/16 12/13/16 04:00 04:00 05:19 WBC 18.7 H RBC 2.89 L Hgb 8.3 L Hct 24.6 L MCV MCH MCHC RDW 17.5 H Plt Count Lymph % (Auto) [place] % (Auto) Lymph # [place] # 1.3 H Baso # Seg Neutrophils % 71.5 H Seg Neuts % (Manual) Lymphocytes % (Manual) Monocytes % (Manual) Eosinophils % (Manual) Basophils % (Manual) Nucleated RBC % Seg Neutrophils # 13.4 H Seg Neutrophils # Man Lymphocytes # (Manual) Monocytes # (Manual) Eosinophils # (Manual) Basophils # (Manual) PT INR Fibrinogen dRVVT Confirm Interp Factor V Activity POC ABG pH POC ABG pCO2 POC ABG pO2 ABG pO2 ABG HCO3 ABG Base Excess ABG Hemoglobin Oxyhemoglobin Sodium Potassium Chloride Carbon Dioxide BUN 73 H Creatinine 1.5 H Glucose 141 H POC Glucose 171 H Lactic Acid Calcium Ionized Calcium Phosphorus Magnesium Direct Bilirubin AST ALT Alkaline Phosphatase Lactate Dehydrogenase Troponin T C-Reactive Protein Total Protein Albumin Prealbumin Triglycerides Cholesterol LDL Cholesterol Direct HDL Cholesterol 25-OH Vitamin D Total PTH Intact Urine pH Urine WBC (Auto) Urine Creatinine Urine Total Protein Fluid Total Protein Vancomycin Trough Rheumatoid Factor Complement C4 Miscellaneous Test Crossmatch 12/13/16 12/13/16 12/14/16 12:28 16:48 00:01 WBC RBC Hgb Hct MCV MCH MCHC RDW Plt Count Lymph % (Auto) [place] % (Auto) Lymph # [place] # Baso # Seg Neutrophils % Seg Neuts % (Manual) Lymphocytes % (Manual) Monocytes % (Manual) Eosinophils % (Manual) Basophils % (Manual) Nucleated RBC % Seg Neutrophils # Seg Neutrophils # Man Lymphocytes # (Manual) Monocytes # (Manual) Eosinophils # (Manual) Basophils # (Manual) PT INR Fibrinogen dRVVT Confirm Interp Factor V Activity POC ABG pH POC ABG pCO2 POC ABG pO2 ABG pO2 ABG HCO3 ABG Base Excess ABG Hemoglobin Oxyhemoglobin Sodium Potassium Chloride Carbon Dioxide BUN Creatinine Glucose POC Glucose 206 H 173 H 139 H Lactic Acid Calcium Ionized Calcium Phosphorus Magnesium Direct Bilirubin AST ALT Alkaline Phosphatase Lactate Dehydrogenase Troponin T C-Reactive Protein Total Protein Albumin Prealbumin Triglycerides Cholesterol LDL Cholesterol Direct HDL Cholesterol 25-OH Vitamin D Total PTH Intact Urine pH Urine WBC (Auto) Urine Creatinine Urine Total Protein Fluid Total Protein Vancomycin Trough Rheumatoid Factor Complement C4 Miscellaneous Test Crossmatch 12/14/16 12/14/16 12/14/16 05:16 06:10 11:17 WBC RBC Hgb Hct MCV MCH MCHC RDW Plt Count Lymph % (Auto) [place] % (Auto) Lymph # [place] # Baso # Seg Neutrophils % Seg Neuts % (Manual) Lymphocytes % (Manual) Monocytes % (Manual) Eosinophils % (Manual) Basophils % (Manual) Nucleated RBC % Seg Neutrophils # Seg Neutrophils # Man Lymphocytes # (Manual) Monocytes # (Manual) Eosinophils # (Manual) Basophils # (Manual) PT INR Fibrinogen dRVVT Confirm Interp Factor V Activity POC ABG pH POC ABG pCO2 POC ABG pO2 ABG pO2 ABG HCO3 ABG Base Excess ABG Hemoglobin Oxyhemoglobin Sodium Potassium Chloride Carbon Dioxide BUN 57 H Creatinine 1.4 H Glucose 135 H POC Glucose 158 H 137 H Lactic Acid Calcium Ionized Calcium Phosphorus Magnesium Direct Bilirubin AST ALT Alkaline Phosphatase Lactate Dehydrogenase Troponin T C-Reactive Protein Total Protein Albumin Prealbumin Triglycerides Cholesterol LDL Cholesterol Direct HDL Cholesterol 25-OH Vitamin D Total PTH Intact Urine pH Urine WBC (Auto) Urine Creatinine Urine Total Protein Fluid Total Protein Vancomycin Trough Rheumatoid Factor Complement C4 Miscellaneous Test Crossmatch 12/14/16 12/14/16 12/15/16 17:52 23:27 04:00 WBC RBC Hgb Hct MCV MCH MCHC RDW Plt Count Lymph % (Auto) [place] % (Auto) Lymph # [place] # Baso # Seg Neutrophils % Seg Neuts % (Manual) Lymphocytes % (Manual) Monocytes % (Manual) Eosinophils % (Manual) Basophils % (Manual) Nucleated RBC % Seg Neutrophils # Seg Neutrophils # Man Lymphocytes # (Manual) Monocytes # (Manual) Eosinophils # (Manual) Basophils # (Manual) PT INR Fibrinogen dRVVT Confirm Interp Factor V Activity POC ABG pH POC ABG pCO2 POC ABG pO2 ABG pO2 ABG HCO3 ABG Base Excess ABG Hemoglobin Oxyhemoglobin Sodium Potassium Chloride 97.9 L Carbon Dioxide BUN 75 H Creatinine 1.6 H Glucose 122 H POC Glucose 149 H 163 H Lactic Acid Calcium Ionized Calcium Phosphorus 5.20 H Magnesium Direct Bilirubin AST ALT Alkaline Phosphatase Lactate Dehydrogenase Troponin T C-Reactive Protein Total Protein Albumin Prealbumin Triglycerides Cholesterol LDL Cholesterol Direct HDL Cholesterol 25-OH Vitamin D Total PTH Intact Urine pH Urine WBC (Auto) Urine Creatinine Urine Total Protein Fluid Total Protein Vancomycin Trough Rheumatoid Factor Complement C4 Miscellaneous Test Crossmatch 12/15/16 12/15/16 12/15/16 05:50 11:24 17:01 WBC RBC Hgb Hct MCV MCH MCHC RDW Plt Count Lymph % (Auto) [place] % (Auto) Lymph # [place] # Baso # Seg Neutrophils % Seg Neuts % (Manual) Lymphocytes % (Manual) Monocytes % (Manual) Eosinophils % (Manual) Basophils % (Manual) Nucleated RBC % Seg Neutrophils # Seg Neutrophils # Man Lymphocytes # (Manual) Monocytes # (Manual) Eosinophils # (Manual) Basophils # (Manual) PT INR Fibrinogen dRVVT Confirm Interp Factor V Activity POC ABG pH POC ABG pCO2 POC ABG pO2 ABG pO2 ABG HCO3 ABG Base Excess ABG Hemoglobin Oxyhemoglobin Sodium Potassium Chloride Carbon Dioxide BUN Creatinine Glucose POC Glucose 150 H 146 H 167 H Lactic Acid Calcium Ionized Calcium Phosphorus Magnesium Direct Bilirubin AST ALT Alkaline Phosphatase Lactate Dehydrogenase Troponin T C-Reactive Protein Total Protein Albumin Prealbumin Triglycerides Cholesterol LDL Cholesterol Direct HDL Cholesterol 25-OH Vitamin D Total PTH Intact Urine pH Urine WBC (Auto) Urine Creatinine Urine Total Protein Fluid Total Protein Vancomycin Trough Rheumatoid Factor Complement C4 Miscellaneous Test Crossmatch 12/15/16 12/16/16 12/16/16 23:34 05:25 11:24 WBC RBC Hgb Hct MCV MCH MCHC RDW Plt Count Lymph % (Auto) [place] % (Auto) Lymph # [place] # Baso # Seg Neutrophils % Seg Neuts % (Manual) Lymphocytes % (Manual) Monocytes % (Manual) Eosinophils % (Manual) Basophils % (Manual) Nucleated RBC % Seg Neutrophils # Seg Neutrophils # Man Lymphocytes # (Manual) Monocytes # (Manual) Eosinophils # (Manual) Basophils # (Manual) PT INR Fibrinogen dRVVT Confirm Interp Factor V Activity POC ABG pH POC ABG pCO2 POC ABG pO2 ABG pO2 ABG HCO3 ABG Base Excess ABG Hemoglobin Oxyhemoglobin Sodium Potassium Chloride Carbon Dioxide BUN Creatinine Glucose POC Glucose 127 H 139 H 165 H Lactic Acid Calcium Ionized Calcium Phosphorus Magnesium Direct Bilirubin AST ALT Alkaline Phosphatase Lactate Dehydrogenase Troponin T C-Reactive Protein Total Protein Albumin Prealbumin Triglycerides Cholesterol LDL Cholesterol Direct HDL Cholesterol 25-OH Vitamin D Total PTH Intact Urine pH Urine WBC (Auto) Urine Creatinine Urine Total Protein Fluid Total Protein Vancomycin Trough Rheumatoid Factor Complement C4 Miscellaneous Test Crossmatch 12/16/16 12/16/16 12/16/16 15:30 16:25 17:31 WBC 17.8 H RBC 2.38 L Hgb 6.4 L Hct 20.3 L MCV MCH 27 L MCHC RDW 17.4 H Plt Count Lymph % (Auto) [place] % (Auto) Lymph # [place] # Baso # Seg Neutrophils % Seg Neuts % (Manual) Lymphocytes % (Manual) Monocytes % (Manual) 10.0 H Eosinophils % (Manual) Basophils % (Manual) Nucleated RBC % Seg Neutrophils # Seg Neutrophils # Man 8.5 H Lymphocytes # (Manual) Monocytes # (Manual) 1.8 H Eosinophils # (Manual) Basophils # (Manual) PT INR Fibrinogen dRVVT Confirm Interp Factor V Activity POC ABG pH POC ABG pCO2 POC ABG pO2 ABG pO2 ABG HCO3 ABG Base Excess ABG Hemoglobin Oxyhemoglobin Sodium Potassium Chloride Carbon Dioxide BUN Creatinine Glucose POC Glucose 176 H Lactic Acid Calcium Ionized Calcium Phosphorus Magnesium Direct Bilirubin AST ALT Alkaline Phosphatase Lactate Dehydrogenase Troponin T C-Reactive Protein Total Protein Albumin Prealbumin Triglycerides Cholesterol LDL Cholesterol Direct HDL Cholesterol 25-OH Vitamin D Total PTH Intact Urine pH Urine WBC (Auto) Urine Creatinine Urine Total Protein Fluid Total Protein Vancomycin Trough Rheumatoid Factor Complement C4 Miscellaneous Test Crossmatch See Detail 12/17/16 12/17/16 12/17/16 00:14 04:00 05:00 WBC 20.0 H RBC 2.99 L Hgb 8.5 L Hct 25.7 L MCV MCH MCHC RDW 17.2 H Plt Count Lymph % (Auto) [place] % (Auto) Lymph # [place] # Baso # Seg Neutrophils % Seg Neuts % (Manual) Lymphocytes % (Manual) Monocytes % (Manual) Eosinophils % (Manual) Basophils % (Manual) Nucleated RBC % Seg Neutrophils # Seg Neutrophils # Man Lymphocytes # (Manual) Monocytes # (Manual) Eosinophils # (Manual) Basophils # (Manual) PT INR Fibrinogen dRVVT Confirm Interp Factor V Activity POC ABG pH POC ABG pCO2 POC ABG pO2 ABG pO2 ABG HCO3 ABG Base Excess ABG Hemoglobin Oxyhemoglobin Sodium Potassium Chloride 97.7 L Carbon Dioxide BUN 73 H Creatinine 1.7 H Glucose 136 H POC Glucose 148 H Lactic Acid Calcium Ionized Calcium Phosphorus 2.20 L Magnesium 2.70 H Direct Bilirubin AST ALT Alkaline Phosphatase Lactate Dehydrogenase Troponin T C-Reactive Protein Total Protein Albumin Prealbumin Triglycerides Cholesterol LDL Cholesterol Direct HDL Cholesterol 25-OH Vitamin D Total PTH Intact Urine pH Urine WBC (Auto) Urine Creatinine Urine Total Protein Fluid Total Protein Vancomycin Trough Rheumatoid Factor Complement C4 Miscellaneous Test Crossmatch 12/17/16 12/17/16 12/17/16 05:39 12:50 16:32 WBC RBC Hgb Hct MCV MCH MCHC RDW Plt Count Lymph % (Auto) [place] % (Auto) Lymph # [place] # Baso # Seg Neutrophils % Seg Neuts % (Manual) Lymphocytes % (Manual) Monocytes % (Manual) Eosinophils % (Manual) Basophils % (Manual) Nucleated RBC % Seg Neutrophils # Seg Neutrophils # Man Lymphocytes # (Manual) Monocytes # (Manual) Eosinophils # (Manual) Basophils # (Manual) PT INR Fibrinogen dRVVT Confirm Interp Factor V Activity POC ABG pH POC ABG pCO2 POC ABG pO2 ABG pO2 ABG HCO3 ABG Base Excess ABG Hemoglobin Oxyhemoglobin Sodium Potassium Chloride Carbon Dioxide BUN Creatinine Glucose POC Glucose 162 H 146 H 169 H Lactic Acid Calcium Ionized Calcium Phosphorus Magnesium Direct Bilirubin AST ALT Alkaline Phosphatase Lactate Dehydrogenase Troponin T C-Reactive Protein Total Protein Albumin Prealbumin Triglycerides Cholesterol LDL Cholesterol Direct HDL Cholesterol 25-OH Vitamin D Total PTH Intact Urine pH Urine WBC (Auto) Urine Creatinine Urine Total Protein Fluid Total Protein Vancomycin Trough Rheumatoid Factor Complement C4 Miscellaneous Test Crossmatch 12/17/16 12/18/16 12/18/16 23:57 05:00 05:32 WBC RBC Hgb Hct MCV MCH MCHC RDW Plt Count Lymph % (Auto) [place] % (Auto) Lymph # [place] # Baso # Seg Neutrophils % Seg Neuts % (Manual) Lymphocytes % (Manual) Monocytes % (Manual) Eosinophils % (Manual) Basophils % (Manual) Nucleated RBC % Seg Neutrophils # Seg Neutrophils # Man Lymphocytes # (Manual) Monocytes # (Manual) Eosinophils # (Manual) Basophils # (Manual) PT INR Fibrinogen dRVVT Confirm Interp Factor V Activity POC ABG pH POC ABG pCO2 POC ABG pO2 ABG pO2 ABG HCO3 ABG Base Excess ABG Hemoglobin Oxyhemoglobin Sodium Potassium Chloride 97.0 L Carbon Dioxide BUN 63 H Creatinine 1.4 H Glucose 174 H POC Glucose 145 H 201 H Lactic Acid Calcium Ionized Calcium Phosphorus 1.70 L D Magnesium Direct Bilirubin AST ALT Alkaline Phosphatase 257 H Lactate Dehydrogenase Troponin T C-Reactive Protein Total Protein 5.9 L Albumin 1.8 L Prealbumin Triglycerides Cholesterol LDL Cholesterol Direct HDL Cholesterol 25-OH Vitamin D Total PTH Intact Urine pH Urine WBC (Auto) Urine Creatinine Urine Total Protein Fluid Total Protein Vancomycin Trough Rheumatoid Factor Complement C4 Miscellaneous Test Crossmatch 12/18/16 12/18/16 12/18/16 11:43 16:52 23:52 WBC RBC Hgb Hct MCV MCH MCHC RDW Plt Count Lymph % (Auto) [place] % (Auto) Lymph # [place] # Baso # Seg Neutrophils % Seg Neuts % (Manual) Lymphocytes % (Manual) Monocytes % (Manual) Eosinophils % (Manual) Basophils % (Manual) Nucleated RBC % Seg Neutrophils # Seg Neutrophils # Man Lymphocytes # (Manual) Monocytes # (Manual) Eosinophils # (Manual) Basophils # (Manual) PT INR Fibrinogen dRVVT Confirm Interp Factor V Activity POC ABG pH POC ABG pCO2 POC ABG pO2 ABG pO2 ABG HCO3 ABG Base Excess ABG Hemoglobin Oxyhemoglobin Sodium Potassium Chloride Carbon Dioxide BUN Creatinine Glucose POC Glucose 177 H 110 H 162 H Lactic Acid Calcium Ionized Calcium Phosphorus Magnesium Direct Bilirubin AST ALT Alkaline Phosphatase Lactate Dehydrogenase Troponin T C-Reactive Protein Total Protein Albumin Prealbumin Triglycerides Cholesterol LDL Cholesterol Direct HDL Cholesterol 25-OH Vitamin D Total PTH Intact Urine pH Urine WBC (Auto) Urine Creatinine Urine Total Protein Fluid Total Protein Vancomycin Trough Rheumatoid Factor Complement C4 Miscellaneous Test Crossmatch 12/19/16 12/19/16 12/19/16 05:02 05:24 09:30 WBC 20.1 H RBC 2.73 L Hgb 7.6 L Hct 23.6 L MCV MCH MCHC RDW 17.6 H Plt Count Lymph % (Auto) [place] % (Auto) Lymph # [place] # Baso # Seg Neutrophils % Seg Neuts % (Manual) Lymphocytes % (Manual) 13.0 L Monocytes % (Manual) Eosinophils % (Manual) Basophils % (Manual) Nucleated RBC % 1.0 H Seg Neutrophils # Seg Neutrophils # Man 12.9 H Lymphocytes # (Manual) Monocytes # (Manual) 1.4 H Eosinophils # (Manual) Basophils # (Manual) 0.2 H PT INR Fibrinogen dRVVT Confirm Interp Factor V Activity POC ABG pH POC ABG pCO2 POC ABG pO2 ABG pO2 ABG HCO3 ABG Base Excess ABG Hemoglobin Oxyhemoglobin Sodium Potassium Chloride 97.8 L Carbon Dioxide BUN 84 H Creatinine 1.6 H Glucose 133 H POC Glucose 134 H Lactic Acid Calcium Ionized Calcium Phosphorus Magnesium Direct Bilirubin AST ALT Alkaline Phosphatase Lactate Dehydrogenase Troponin T C-Reactive Protein Total Protein Albumin Prealbumin Triglycerides Cholesterol LDL Cholesterol Direct HDL Cholesterol 25-OH Vitamin D Total PTH Intact Urine pH Urine WBC (Auto) Urine Creatinine Urine Total Protein Fluid Total Protein Vancomycin Trough Rheumatoid Factor Complement C4 Miscellaneous Test Crossmatch 12/19/16 12/19/16 12/19/16 09:36 11:12 18:29 WBC RBC Hgb Hct MCV MCH MCHC RDW Plt Count Lymph % (Auto) [place] % (Auto) Lymph # [place] # Baso # Seg Neutrophils % Seg Neuts % (Manual) Lymphocytes % (Manual) Monocytes % (Manual) Eosinophils % (Manual) Basophils % (Manual) Nucleated RBC % Seg Neutrophils # Seg Neutrophils # Man Lymphocytes # (Manual) Monocytes # (Manual) Eosinophils # (Manual) Basophils # (Manual) PT INR Fibrinogen dRVVT Confirm Interp Factor V Activity POC ABG pH 7.503 H POC ABG pCO2 30.1 L POC ABG pO2 ABG pO2 ABG HCO3 ABG Base Excess ABG Hemoglobin Oxyhemoglobin Sodium Potassium Chloride Carbon Dioxide BUN Creatinine Glucose POC Glucose 138 H 156 H Lactic Acid Calcium Ionized Calcium Phosphorus Magnesium Direct Bilirubin AST ALT Alkaline Phosphatase Lactate Dehydrogenase Troponin T C-Reactive Protein Total Protein Albumin Prealbumin Triglycerides Cholesterol LDL Cholesterol Direct HDL Cholesterol 25-OH Vitamin D Total PTH Intact Urine pH Urine WBC (Auto) Urine Creatinine Urine Total Protein Fluid Total Protein Vancomycin Trough Rheumatoid Factor Complement C4 Miscellaneous Test Crossmatch 12/20/16 12/20/16 12/20/16 00:03 06:17 07:07 WBC RBC Hgb Hct MCV MCH MCHC RDW Plt Count Lymph % (Auto) [place] % (Auto) Lymph # [place] # Baso # Seg Neutrophils % Seg Neuts % (Manual) Lymphocytes % (Manual) Monocytes % (Manual) Eosinophils % (Manual) Basophils % (Manual) Nucleated RBC % Seg Neutrophils # Seg Neutrophils # Man Lymphocytes # (Manual) Monocytes # (Manual) Eosinophils # (Manual) Basophils # (Manual) PT INR Fibrinogen dRVVT Confirm Interp Factor V Activity POC ABG pH POC ABG pCO2 POC ABG pO2 ABG pO2 ABG HCO3 ABG Base Excess ABG Hemoglobin Oxyhemoglobin Sodium Potassium Chloride 97.1 L Carbon Dioxide 20 L BUN 97 H Creatinine 1.8 H Glucose 153 H POC Glucose 152 H 175 H Lactic Acid Calcium Ionized Calcium Phosphorus Magnesium Direct Bilirubin AST ALT Alkaline Phosphatase Lactate Dehydrogenase Troponin T C-Reactive Protein Total Protein Albumin Prealbumin Triglycerides Cholesterol LDL Cholesterol Direct HDL Cholesterol 25-OH Vitamin D Total PTH Intact Urine pH Urine WBC (Auto) Urine Creatinine Urine Total Protein Fluid Total Protein Vancomycin Trough Rheumatoid Factor Complement C4 Miscellaneous Test Crossmatch 12/20/16 12/20/16 12/20/16 12:00 17:42 23:53 WBC RBC Hgb Hct MCV MCH MCHC RDW Plt Count Lymph % (Auto) [place] % (Auto) Lymph # [place] # Baso # Seg Neutrophils % Seg Neuts % (Manual) Lymphocytes % (Manual) Monocytes % (Manual) Eosinophils % (Manual) Basophils % (Manual) Nucleated RBC % Seg Neutrophils # Seg Neutrophils # Man Lymphocytes # (Manual) Monocytes # (Manual) Eosinophils # (Manual) Basophils # (Manual) PT INR Fibrinogen dRVVT Confirm Interp Factor V Activity POC ABG pH POC ABG pCO2 POC ABG pO2 ABG pO2 ABG HCO3 ABG Base Excess ABG Hemoglobin Oxyhemoglobin Sodium Potassium Chloride Carbon Dioxide BUN Creatinine Glucose POC Glucose 141 H 156 H 132 H Lactic Acid Calcium Ionized Calcium Phosphorus Magnesium Direct Bilirubin AST ALT Alkaline Phosphatase Lactate Dehydrogenase Troponin T C-Reactive Protein Total Protein Albumin Prealbumin Triglycerides Cholesterol LDL Cholesterol Direct HDL Cholesterol 25-OH Vitamin D Total PTH Intact Urine pH Urine WBC (Auto) Urine Creatinine Urine Total Protein Fluid Total Protein Vancomycin Trough Rheumatoid Factor Complement C4 Miscellaneous Test Crossmatch 12/21/16 12/21/16 12/21/16 05:49 08:50 12:19 WBC RBC Hgb Hct MCV MCH MCHC RDW Plt Count Lymph % (Auto) [place] % (Auto) Lymph # [place] # Baso # Seg Neutrophils % Seg Neuts % (Manual) Lymphocytes % (Manual) Monocytes % (Manual) Eosinophils % (Manual) Basophils % (Manual) Nucleated RBC % Seg Neutrophils # Seg Neutrophils # Man Lymphocytes # (Manual) Monocytes # (Manual) Eosinophils # (Manual) Basophils # (Manual) PT INR Fibrinogen dRVVT Confirm Interp Factor V Activity POC ABG pH POC ABG pCO2 POC ABG pO2 ABG pO2 ABG HCO3 ABG Base Excess ABG Hemoglobin Oxyhemoglobin Sodium Potassium 5.2 H D Chloride Carbon Dioxide BUN 63 H Creatinine Glucose 122 H POC Glucose 132 H 136 H Lactic Acid Calcium 8.3 L Ionized Calcium Phosphorus Magnesium Direct Bilirubin AST ALT Alkaline Phosphatase Lactate Dehydrogenase Troponin T C-Reactive Protein Total Protein Albumin Prealbumin Triglycerides Cholesterol LDL Cholesterol Direct HDL Cholesterol 25-OH Vitamin D Total PTH Intact Urine pH Urine WBC (Auto) Urine Creatinine Urine Total Protein Fluid Total Protein Vancomycin Trough Rheumatoid Factor Complement C4 Miscellaneous Test Crossmatch 12/21/16 12/21/16 12/22/16 17:22 23:58 05:49 WBC RBC Hgb Hct MCV MCH MCHC RDW Plt Count Lymph % (Auto) [place] % (Auto) Lymph # [place] # Baso # Seg Neutrophils % Seg Neuts % (Manual) Lymphocytes % (Manual) Monocytes % (Manual) Eosinophils % (Manual) Basophils % (Manual) Nucleated RBC % Seg Neutrophils # Seg Neutrophils # Man Lymphocytes # (Manual) Monocytes # (Manual) Eosinophils # (Manual) Basophils # (Manual) PT INR Fibrinogen dRVVT Confirm Interp Factor V Activity POC ABG pH POC ABG pCO2 POC ABG pO2 ABG pO2 ABG HCO3 ABG Base Excess ABG Hemoglobin Oxyhemoglobin Sodium Potassium Chloride Carbon Dioxide BUN Creatinine Glucose POC Glucose 135 H 149 H 140 H Lactic Acid Calcium Ionized Calcium Phosphorus Magnesium Direct Bilirubin AST ALT Alkaline Phosphatase Lactate Dehydrogenase Troponin T C-Reactive Protein Total Protein Albumin Prealbumin Triglycerides Cholesterol LDL Cholesterol Direct HDL Cholesterol 25-OH Vitamin D Total PTH Intact Urine pH Urine WBC (Auto) Urine Creatinine Urine Total Protein Fluid Total Protein Vancomycin Trough Rheumatoid Factor Complement C4 Miscellaneous Test Crossmatch 12/22/16 12/22/16 12/22/16 06:10 11:17 17:31 WBC RBC Hgb Hct MCV MCH MCHC RDW Plt Count Lymph % (Auto) [place] % (Auto) Lymph # [place] # Baso # Seg Neutrophils % Seg Neuts % (Manual) Lymphocytes % (Manual) Monocytes % (Manual) Eosinophils % (Manual) Basophils % (Manual) Nucleated RBC % Seg Neutrophils # Seg Neutrophils # Man Lymphocytes # (Manual) Monocytes # (Manual) Eosinophils # (Manual) Basophils # (Manual) PT INR Fibrinogen dRVVT Confirm Interp Factor V Activity POC ABG pH POC ABG pCO2 POC ABG pO2 ABG pO2 ABG HCO3 ABG Base Excess ABG Hemoglobin Oxyhemoglobin Sodium Potassium Chloride Carbon Dioxide BUN 76 H Creatinine 1.5 H Glucose 241 H POC Glucose 193 H 148 H Lactic Acid Calcium Ionized Calcium Phosphorus Magnesium Direct Bilirubin AST ALT Alkaline Phosphatase Lactate Dehydrogenase Troponin T C-Reactive Protein Total Protein Albumin Prealbumin Triglycerides Cholesterol LDL Cholesterol Direct HDL Cholesterol 25-OH Vitamin D Total PTH Intact Urine pH Urine WBC (Auto) Urine Creatinine Urine Total Protein Fluid Total Protein Vancomycin Trough Rheumatoid Factor Complement C4 Miscellaneous Test Crossmatch 12/22/16 12/23/16 12/23/16 23:58 05:00 05:26 WBC RBC Hgb Hct MCV MCH MCHC RDW Plt Count Lymph % (Auto) [place] % (Auto) Lymph # [place] # Baso # Seg Neutrophils % Seg Neuts % (Manual) Lymphocytes % (Manual) Monocytes % (Manual) Eosinophils % (Manual) Basophils % (Manual) Nucleated RBC % Seg Neutrophils # Seg Neutrophils # Man Lymphocytes # (Manual) Monocytes # (Manual) Eosinophils # (Manual) Basophils # (Manual) PT INR Fibrinogen dRVVT Confirm Interp Factor V Activity POC ABG pH POC ABG pCO2 POC ABG pO2 ABG pO2 ABG HCO3 ABG Base Excess ABG Hemoglobin Oxyhemoglobin Sodium Potassium Chloride Carbon Dioxide BUN 49 H Creatinine Glucose 143 H POC Glucose 165 H 154 H Lactic Acid Calcium 8.2 L Ionized Calcium Phosphorus Magnesium 1.60 L Direct Bilirubin AST ALT Alkaline Phosphatase Lactate Dehydrogenase Troponin T C-Reactive Protein Total Protein Albumin Prealbumin Triglycerides Cholesterol LDL Cholesterol Direct HDL Cholesterol 25-OH Vitamin D Total PTH Intact Urine pH Urine WBC (Auto) Urine Creatinine Urine Total Protein Fluid Total Protein Vancomycin Trough Rheumatoid Factor Complement C4 Miscellaneous Test Crossmatch 12/23/16 12/23/16 12/24/16 12:35 17:01 00:01 WBC RBC Hgb Hct MCV MCH MCHC RDW Plt Count Lymph % (Auto) [place] % (Auto) Lymph # [place] # Baso # Seg Neutrophils % Seg Neuts % (Manual) Lymphocytes % (Manual) Monocytes % (Manual) Eosinophils % (Manual) Basophils % (Manual) Nucleated RBC % Seg Neutrophils # Seg Neutrophils # Man Lymphocytes # (Manual) Monocytes # (Manual) Eosinophils # (Manual) Basophils # (Manual) PT INR Fibrinogen dRVVT Confirm Interp Factor V Activity POC ABG pH POC ABG pCO2 POC ABG pO2 ABG pO2 ABG HCO3 ABG Base Excess ABG Hemoglobin Oxyhemoglobin Sodium Potassium Chloride Carbon Dioxide BUN Creatinine Glucose POC Glucose 164 H 149 H 135 H Lactic Acid Calcium Ionized Calcium Phosphorus Magnesium Direct Bilirubin AST ALT Alkaline Phosphatase Lactate Dehydrogenase Troponin T C-Reactive Protein Total Protein Albumin Prealbumin Triglycerides Cholesterol LDL Cholesterol Direct HDL Cholesterol 25-OH Vitamin D Total PTH Intact Urine pH Urine WBC (Auto) Urine Creatinine Urine Total Protein Fluid Total Protein Vancomycin Trough Rheumatoid Factor Complement C4 Miscellaneous Test Crossmatch 12/24/16 12/24/16 12/24/16 05:41 07:01 11:38 WBC RBC Hgb Hct MCV MCH MCHC RDW Plt Count Lymph % (Auto) [place] % (Auto) Lymph # [place] # Baso # Seg Neutrophils % Seg Neuts % (Manual) Lymphocytes % (Manual) Monocytes % (Manual) Eosinophils % (Manual) Basophils % (Manual) Nucleated RBC % Seg Neutrophils # Seg Neutrophils # Man Lymphocytes # (Manual) Monocytes # (Manual) Eosinophils # (Manual) Basophils # (Manual) PT INR Fibrinogen dRVVT Confirm Interp Factor V Activity POC ABG pH POC ABG pCO2 POC ABG pO2 ABG pO2 ABG HCO3 ABG Base Excess ABG Hemoglobin Oxyhemoglobin Sodium Potassium Chloride Carbon Dioxide BUN 72 H Creatinine 1.3 H Glucose 130 H POC Glucose 132 H 156 H Lactic Acid Calcium 8.2 L Ionized Calcium Phosphorus Magnesium Direct Bilirubin AST ALT Alkaline Phosphatase Lactate Dehydrogenase Troponin T C-Reactive Protein Total Protein Albumin Prealbumin Triglycerides Cholesterol LDL Cholesterol Direct HDL Cholesterol 25-OH Vitamin D Total PTH Intact Urine pH Urine WBC (Auto) Urine Creatinine Urine Total Protein Fluid Total Protein Vancomycin Trough Rheumatoid Factor Complement C4 Miscellaneous Test Crossmatch 12/24/16 12/25/16 12/25/16 17:53 00:23 05:45 WBC RBC Hgb Hct MCV MCH MCHC RDW Plt Count Lymph % (Auto) [place] % (Auto) Lymph # [place] # Baso # Seg Neutrophils % Seg Neuts % (Manual) Lymphocytes % (Manual) Monocytes % (Manual) Eosinophils % (Manual) Basophils % (Manual) Nucleated RBC % Seg Neutrophils # Seg Neutrophils # Man Lymphocytes # (Manual) Monocytes # (Manual) Eosinophils # (Manual) Basophils # (Manual) PT INR Fibrinogen dRVVT Confirm Interp Factor V Activity POC ABG pH POC ABG pCO2 POC ABG pO2 ABG pO2 ABG HCO3 ABG Base Excess ABG Hemoglobin Oxyhemoglobin Sodium 146 H Potassium Chloride Carbon Dioxide BUN 51 H Creatinine Glucose 109 H POC Glucose 169 H 117 H Lactic Acid Calcium Ionized Calcium Phosphorus Magnesium Direct Bilirubin AST ALT Alkaline Phosphatase Lactate Dehydrogenase Troponin T C-Reactive Protein Total Protein Albumin Prealbumin Triglycerides Cholesterol LDL Cholesterol Direct HDL Cholesterol 25-OH Vitamin D Total PTH Intact Urine pH Urine WBC (Auto) Urine Creatinine Urine Total Protein Fluid Total Protein Vancomycin Trough Rheumatoid Factor Complement C4 Miscellaneous Test Crossmatch 12/25/16 12/25/16 12/25/16 06:43 11:29 17:14 WBC RBC Hgb Hct MCV MCH MCHC RDW Plt Count Lymph % (Auto) [place] % (Auto) Lymph # [place] # Baso # Seg Neutrophils % Seg Neuts % (Manual) Lymphocytes % (Manual) Monocytes % (Manual) Eosinophils % (Manual) Basophils % (Manual) Nucleated RBC % Seg Neutrophils # Seg Neutrophils # Man Lymphocytes # (Manual) Monocytes # (Manual) Eosinophils # (Manual) Basophils # (Manual) PT INR Fibrinogen dRVVT Confirm Interp Factor V Activity POC ABG pH POC ABG pCO2 POC ABG pO2 ABG pO2 ABG HCO3 ABG Base Excess ABG Hemoglobin Oxyhemoglobin Sodium Potassium Chloride Carbon Dioxide BUN Creatinine Glucose POC Glucose 117 H 128 H 120 H Lactic Acid Calcium Ionized Calcium Phosphorus Magnesium Direct Bilirubin AST ALT Alkaline Phosphatase Lactate Dehydrogenase Troponin T C-Reactive Protein Total Protein Albumin Prealbumin Triglycerides Cholesterol LDL Cholesterol Direct HDL Cholesterol 25-OH Vitamin D Total PTH Intact Urine pH Urine WBC (Auto) Urine Creatinine Urine Total Protein Fluid Total Protein Vancomycin Trough Rheumatoid Factor Complement C4 Miscellaneous Test Crossmatch 12/25/16 12/26/16 12/26/16 23:54 05:40 05:50 WBC 16.2 H RBC 2.32 L Hgb 6.2 L Hct 20.1 L MCV MCH 27 L MCHC RDW 18.6 H Plt Count Lymph % (Auto) [place] % (Auto) Lymph # [place] # Baso # Seg Neutrophils % Seg Neuts % (Manual) Lymphocytes % (Manual) Monocytes % (Manual) Eosinophils % (Manual) Basophils % (Manual) Nucleated RBC % Seg Neutrophils # Seg Neutrophils # Man Lymphocytes # (Manual) Monocytes # (Manual) Eosinophils # (Manual) Basophils # (Manual) PT INR Fibrinogen dRVVT Confirm Interp Factor V Activity POC ABG pH POC ABG pCO2 POC ABG pO2 ABG pO2 ABG HCO3 ABG Base Excess ABG Hemoglobin Oxyhemoglobin Sodium Potassium Chloride Carbon Dioxide BUN Creatinine Glucose POC Glucose 126 H 132 H Lactic Acid Calcium Ionized Calcium Phosphorus Magnesium Direct Bilirubin AST ALT Alkaline Phosphatase Lactate Dehydrogenase Troponin T C-Reactive Protein Total Protein Albumin Prealbumin Triglycerides Cholesterol LDL Cholesterol Direct HDL Cholesterol 25-OH Vitamin D Total PTH Intact Urine pH Urine WBC (Auto) Urine Creatinine Urine Total Protein Fluid Total Protein Vancomycin Trough Rheumatoid Factor Complement C4 Miscellaneous Test Crossmatch 12/26/16 12/26/16 12/26/16 05:50 12:17 12:33 WBC RBC Hgb Hct MCV MCH MCHC RDW Plt Count Lymph % (Auto) [place] % (Auto) Lymph # [place] # Baso # Seg Neutrophils % Seg Neuts % (Manual) Lymphocytes % (Manual) Monocytes % (Manual) Eosinophils % (Manual) Basophils % (Manual) Nucleated RBC % Seg Neutrophils # Seg Neutrophils # Man Lymphocytes # (Manual) Monocytes # (Manual) Eosinophils # (Manual) Basophils # (Manual) PT INR Fibrinogen dRVVT Confirm Interp Factor V Activity POC ABG pH POC ABG pCO2 POC ABG pO2 ABG pO2 ABG HCO3 ABG Base Excess ABG Hemoglobin Oxyhemoglobin Sodium Potassium Chloride Carbon Dioxide BUN 73 H Creatinine 1.3 H Glucose 113 H POC Glucose 117 H Lactic Acid Calcium Ionized Calcium Phosphorus Magnesium Direct Bilirubin AST ALT Alkaline Phosphatase Lactate Dehydrogenase Troponin T C-Reactive Protein Total Protein Albumin Prealbumin Triglycerides Cholesterol LDL Cholesterol Direct HDL Cholesterol 25-OH Vitamin D Total PTH Intact Urine pH Urine WBC (Auto) Urine Creatinine Urine Total Protein Fluid Total Protein Vancomycin Trough Rheumatoid Factor Complement C4 Miscellaneous Test Crossmatch See Detail 12/26/16 12/26/16 12/27/16 20:00 23:21 05:00 WBC RBC Hgb 8.4 L Hct 26.3 L D MCV MCH MCHC RDW Plt Count Lymph % (Auto) [place] % (Auto) Lymph # [place] # Baso # Seg Neutrophils % Seg Neuts % (Manual) Lymphocytes % (Manual) Monocytes % (Manual) Eosinophils % (Manual) Basophils % (Manual) Nucleated RBC % Seg Neutrophils # Seg Neutrophils # Man Lymphocytes # (Manual) Monocytes # (Manual) Eosinophils # (Manual) Basophils # (Manual) PT INR Fibrinogen dRVVT Confirm Interp Factor V Activity POC ABG pH POC ABG pCO2 POC ABG pO2 ABG pO2 ABG HCO3 ABG Base Excess ABG Hemoglobin Oxyhemoglobin Sodium Potassium Chloride Carbon Dioxide BUN 85 H Creatinine 1.6 H Glucose 118 H POC Glucose 124 H Lactic Acid Calcium Ionized Calcium Phosphorus 4.80 H Magnesium Direct Bilirubin AST ALT Alkaline Phosphatase Lactate Dehydrogenase Troponin T C-Reactive Protein Total Protein Albumin Prealbumin Triglycerides Cholesterol LDL Cholesterol Direct HDL Cholesterol 25-OH Vitamin D Total PTH Intact Urine pH Urine WBC (Auto) Urine Creatinine Urine Total Protein Fluid Total Protein Vancomycin Trough Rheumatoid Factor Complement C4 Miscellaneous Test Crossmatch 12/27/16 12/27/16 12/27/16 05:00 05:35 12:24 WBC RBC Hgb 7.6 L Hct 22.8 L MCV MCH MCHC RDW Plt Count Lymph % (Auto) [place] % (Auto) Lymph # [place] # Baso # Seg Neutrophils % Seg Neuts % (Manual) Lymphocytes % (Manual) Monocytes % (Manual) Eosinophils % (Manual) Basophils % (Manual) Nucleated RBC % Seg Neutrophils # Seg Neutrophils # Man Lymphocytes # (Manual) Monocytes # (Manual) Eosinophils # (Manual) Basophils # (Manual) PT INR Fibrinogen dRVVT Confirm Interp Factor V Activity POC ABG pH POC ABG pCO2 POC ABG pO2 ABG pO2 ABG HCO3 ABG Base Excess ABG Hemoglobin Oxyhemoglobin Sodium Potassium Chloride Carbon Dioxide BUN Creatinine Glucose POC Glucose 115 H 131 H Lactic Acid Calcium Ionized Calcium Phosphorus Magnesium Direct Bilirubin AST ALT Alkaline Phosphatase Lactate Dehydrogenase Troponin T C-Reactive Protein Total Protein Albumin Prealbumin Triglycerides Cholesterol LDL Cholesterol Direct HDL Cholesterol 25-OH Vitamin D Total PTH Intact Urine pH Urine WBC (Auto) Urine Creatinine Urine Total Protein Fluid Total Protein Vancomycin Trough Rheumatoid Factor Complement C4 Miscellaneous Test Crossmatch 12/27/16 12/28/16 12/28/16 17:16 00:18 04:00 WBC RBC Hgb Hct MCV MCH MCHC RDW Plt Count Lymph % (Auto) [place] % (Auto) Lymph # [place] # Baso # Seg Neutrophils % Seg Neuts % (Manual) Lymphocytes % (Manual) Monocytes % (Manual) Eosinophils % (Manual) Basophils % (Manual) Nucleated RBC % Seg Neutrophils # Seg Neutrophils # Man Lymphocytes # (Manual) Monocytes # (Manual) Eosinophils # (Manual) Basophils # (Manual) PT INR Fibrinogen dRVVT Confirm Interp Factor V Activity POC ABG pH POC ABG pCO2 POC ABG pO2 ABG pO2 ABG HCO3 ABG Base Excess ABG Hemoglobin Oxyhemoglobin Sodium Potassium 3.5 L Chloride Carbon Dioxide BUN 57 H Creatinine Glucose 118 H POC Glucose 136 H 120 H Lactic Acid Calcium 8.3 L Ionized Calcium Phosphorus Magnesium Direct Bilirubin AST ALT Alkaline Phosphatase Lactate Dehydrogenase Troponin T C-Reactive Protein Total Protein Albumin Prealbumin Triglycerides Cholesterol LDL Cholesterol Direct HDL Cholesterol 25-OH Vitamin D Total PTH Intact Urine pH Urine WBC (Auto) Urine Creatinine Urine Total Protein Fluid Total Protein Vancomycin Trough Rheumatoid Factor Complement C4 Miscellaneous Test Crossmatch 12/28/16 12/28/16 12/28/16 04:00 05:11 08:30 WBC 17.0 H RBC 2.58 L Hgb 7.1 L Hct 22.0 L MCV MCH MCHC RDW 17.6 H Plt Count Lymph % (Auto) 12.2 L [place] % (Auto) Lymph # [place] # 1.1 H Baso # Seg Neutrophils % 80.5 H Seg Neuts % (Manual) Lymphocytes % (Manual) Monocytes % (Manual) Eosinophils % (Manual) Basophils % (Manual) Nucleated RBC % Seg Neutrophils # 13.7 H Seg Neutrophils # Man Lymphocytes # (Manual) Monocytes # (Manual) Eosinophils # (Manual) Basophils # (Manual) PT 16.1 H INR 1.23 H Fibrinogen dRVVT Confirm Interp Factor V Activity POC ABG pH POC ABG pCO2 POC ABG pO2 ABG pO2 ABG HCO3 ABG Base Excess ABG Hemoglobin Oxyhemoglobin Sodium Potassium Chloride Carbon Dioxide BUN Creatinine Glucose POC Glucose 122 H Lactic Acid Calcium Ionized Calcium Phosphorus Magnesium Direct Bilirubin AST ALT Alkaline Phosphatase Lactate Dehydrogenase Troponin T C-Reactive Protein Total Protein Albumin Prealbumin Triglycerides Cholesterol LDL Cholesterol Direct HDL Cholesterol 25-OH Vitamin D Total PTH Intact Urine pH Urine WBC (Auto) Urine Creatinine Urine Total Protein Fluid Total Protein Vancomycin Trough Rheumatoid Factor Complement C4 Miscellaneous Test Crossmatch 12/28/16 12/28/16 12/28/16 12:27 16:32 23:46 WBC RBC Hgb Hct MCV MCH MCHC RDW Plt Count Lymph % (Auto) [place] % (Auto) Lymph # [place] # Baso # Seg Neutrophils % Seg Neuts % (Manual) Lymphocytes % (Manual) Monocytes % (Manual) Eosinophils % (Manual) Basophils % (Manual) Nucleated RBC % Seg Neutrophils # Seg Neutrophils # Man Lymphocytes # (Manual) Monocytes # (Manual) Eosinophils # (Manual) Basophils # (Manual) PT INR Fibrinogen dRVVT Confirm Interp Factor V Activity POC ABG pH POC ABG pCO2 POC ABG pO2 ABG pO2 ABG HCO3 ABG Base Excess ABG Hemoglobin Oxyhemoglobin Sodium Potassium Chloride Carbon Dioxide BUN Creatinine Glucose POC Glucose 127 H 117 H 108 H Lactic Acid Calcium Ionized Calcium Phosphorus Magnesium Direct Bilirubin AST ALT Alkaline Phosphatase Lactate Dehydrogenase Troponin T C-Reactive Protein Total Protein Albumin Prealbumin Triglycerides Cholesterol LDL Cholesterol Direct HDL Cholesterol 25-OH Vitamin D Total PTH Intact Urine pH Urine WBC (Auto) Urine Creatinine Urine Total Protein Fluid Total Protein Vancomycin Trough Rheumatoid Factor Complement C4 Miscellaneous Test Crossmatch 12/29/16 12/29/16 12/29/16 05:15 05:15 05:32 WBC RBC Hgb Hct MCV MCH MCHC RDW Plt Count Lymph % (Auto) [place] % (Auto) Lymph # [place] # Baso # Seg Neutrophils % Seg Neuts % (Manual) Lymphocytes % (Manual) Monocytes % (Manual) Eosinophils % (Manual) Basophils % (Manual) Nucleated RBC % Seg Neutrophils # Seg Neutrophils # Man Lymphocytes # (Manual) Monocytes # (Manual) Eosinophils # (Manual) Basophils # (Manual) PT INR Fibrinogen dRVVT Confirm Interp Factor V Activity POC ABG pH POC ABG pCO2 POC ABG pO2 ABG pO2 ABG HCO3 ABG Base Excess ABG Hemoglobin Oxyhemoglobin Sodium Potassium Chloride Carbon Dioxide BUN 74 H Creatinine 1.6 H Glucose 111 H POC Glucose 123 H Lactic Acid Calcium Ionized Calcium Phosphorus Magnesium Direct Bilirubin AST ALT Alkaline Phosphatase Lactate Dehydrogenase Troponin T C-Reactive Protein Total Protein Albumin Prealbumin 0.110 L Triglycerides Cholesterol LDL Cholesterol Direct HDL Cholesterol 25-OH Vitamin D Total PTH Intact Urine pH Urine WBC (Auto) Urine Creatinine Urine Total Protein Fluid Total Protein Vancomycin Trough Rheumatoid Factor Complement C4 Miscellaneous Test Crossmatch 12/29/16 12/29/16 12/29/16 11:43 13:45 14:00 WBC 13.8 H RBC 2.26 L Hgb 6.3 L Hct 20.4 L MCV MCH MCHC RDW 18.3 H Plt Count Lymph % (Auto) [place] % (Auto) Lymph # [place] # 0.9 H Baso # Seg Neutrophils % 78.6 H Seg Neuts % (Manual) Lymphocytes % (Manual) Monocytes % (Manual) Eosinophils % (Manual) Basophils % (Manual) Nucleated RBC % Seg Neutrophils # 10.8 H Seg Neutrophils # Man Lymphocytes # (Manual) Monocytes # (Manual) Eosinophils # (Manual) Basophils # (Manual) PT INR Fibrinogen dRVVT Confirm Interp Factor V Activity POC ABG pH POC ABG pCO2 POC ABG pO2 ABG pO2 ABG HCO3 ABG Base Excess ABG Hemoglobin Oxyhemoglobin Sodium Potassium Chloride Carbon Dioxide BUN Creatinine Glucose POC Glucose 133 H Lactic Acid Calcium Ionized Calcium Phosphorus Magnesium Direct Bilirubin AST ALT Alkaline Phosphatase Lactate Dehydrogenase Troponin T C-Reactive Protein Total Protein Albumin Prealbumin Triglycerides Cholesterol LDL Cholesterol Direct HDL Cholesterol 25-OH Vitamin D Total PTH Intact Urine pH Urine WBC (Auto) Urine Creatinine Urine Total Protein Fluid Total Protein Vancomycin Trough Rheumatoid Factor Complement C4 Miscellaneous Test Crossmatch See Detail 12/29/16 12/29/16 12/29/16 17:03 23:15 23:22 WBC RBC Hgb 7.3 L Hct 22.3 L MCV MCH MCHC RDW Plt Count Lymph % (Auto) [place] % (Auto) Lymph # [place] # Baso # Seg Neutrophils % Seg Neuts % (Manual) Lymphocytes % (Manual) Monocytes % (Manual) Eosinophils % (Manual) Basophils % (Manual) Nucleated RBC % Seg Neutrophils # Seg Neutrophils # Man Lymphocytes # (Manual) Monocytes # (Manual) Eosinophils # (Manual) Basophils # (Manual) PT INR Fibrinogen dRVVT Confirm Interp Factor V Activity POC ABG pH POC ABG pCO2 POC ABG pO2 ABG pO2 ABG HCO3 ABG Base Excess ABG Hemoglobin Oxyhemoglobin Sodium Potassium Chloride Carbon Dioxide BUN Creatinine Glucose POC Glucose 139 H 120 H Lactic Acid Calcium Ionized Calcium Phosphorus Magnesium Direct Bilirubin AST ALT Alkaline Phosphatase Lactate Dehydrogenase Troponin T C-Reactive Protein Total Protein Albumin Prealbumin Triglycerides Cholesterol LDL Cholesterol Direct HDL Cholesterol 25-OH Vitamin D Total PTH Intact Urine pH Urine WBC (Auto) Urine Creatinine Urine Total Protein Fluid Total Protein Vancomycin Trough Rheumatoid Factor Complement C4 Miscellaneous Test Crossmatch 12/30/16 12/30/16 12/30/16 04:20 04:20 05:43 WBC 15.6 H RBC 2.81 L Hgb 8.0 L Hct 24.0 L MCV MCH MCHC RDW 16.9 H Plt Count Lymph % (Auto) [place] % (Auto) Lymph # [place] # 1.0 H Baso # Seg Neutrophils % 76.2 H Seg Neuts % (Manual) Lymphocytes % (Manual) Monocytes % (Manual) Eosinophils % (Manual) Basophils % (Manual) Nucleated RBC % Seg Neutrophils # 11.9 H Seg Neutrophils # Man Lymphocytes # (Manual) Monocytes # (Manual) Eosinophils # (Manual) Basophils # (Manual) PT INR Fibrinogen dRVVT Confirm Interp Factor V Activity POC ABG pH POC ABG pCO2 POC ABG pO2 ABG pO2 ABG HCO3 ABG Base Excess ABG Hemoglobin Oxyhemoglobin Sodium Potassium Chloride Carbon Dioxide BUN 87 H Creatinine 1.8 H Glucose 119 H POC Glucose 115 H Lactic Acid Calcium Ionized Calcium Phosphorus Magnesium Direct Bilirubin AST ALT Alkaline Phosphatase Lactate Dehydrogenase Troponin T C-Reactive Protein Total Protein Albumin Prealbumin Triglycerides Cholesterol LDL Cholesterol Direct HDL Cholesterol 25-OH Vitamin D Total PTH Intact Urine pH Urine WBC (Auto) Urine Creatinine Urine Total Protein Fluid Total Protein Vancomycin Trough Rheumatoid Factor Complement C4 Miscellaneous Test Crossmatch 12/30/16 12/30/16 12/31/16 17:27 23:21 04:00 WBC RBC Hgb Hct MCV MCH MCHC RDW Plt Count Lymph % (Auto) [place] % (Auto) Lymph # [place] # Baso # Seg Neutrophils % Seg Neuts % (Manual) Lymphocytes % (Manual) Monocytes % (Manual) Eosinophils % (Manual) Basophils % (Manual) Nucleated RBC % Seg Neutrophils # Seg Neutrophils # Man Lymphocytes # (Manual) Monocytes # (Manual) Eosinophils # (Manual) Basophils # (Manual) PT INR Fibrinogen dRVVT Confirm Interp Factor V Activity POC ABG pH POC ABG pCO2 POC ABG pO2 ABG pO2 ABG HCO3 ABG Base Excess ABG Hemoglobin Oxyhemoglobin Sodium Potassium Chloride Carbon Dioxide BUN 59 H Creatinine Glucose 298 H POC Glucose 144 H 125 H Lactic Acid Calcium Ionized Calcium Phosphorus Magnesium Direct Bilirubin AST ALT Alkaline Phosphatase Lactate Dehydrogenase Troponin T C-Reactive Protein Total Protein Albumin Prealbumin Triglycerides Cholesterol LDL Cholesterol Direct HDL Cholesterol 25-OH Vitamin D Total PTH Intact Urine pH Urine WBC (Auto) Urine Creatinine Urine Total Protein Fluid Total Protein Vancomycin Trough Rheumatoid Factor Complement C4 Miscellaneous Test Crossmatch 12/31/16 12/31/16 12/31/16 05:11 12:18 18:17 WBC RBC Hgb Hct MCV MCH MCHC RDW Plt Count Lymph % (Auto) [place] % (Auto) Lymph # [place] # Baso # Seg Neutrophils % Seg Neuts % (Manual) Lymphocytes % (Manual) Monocytes % (Manual) Eosinophils % (Manual) Basophils % (Manual) Nucleated RBC % Seg Neutrophils # Seg Neutrophils # Man Lymphocytes # (Manual) Monocytes # (Manual) Eosinophils # (Manual) Basophils # (Manual) PT INR Fibrinogen dRVVT Confirm Interp Factor V Activity POC ABG pH POC ABG pCO2 POC ABG pO2 ABG pO2 ABG HCO3 ABG Base Excess ABG Hemoglobin Oxyhemoglobin Sodium Potassium Chloride Carbon Dioxide BUN Creatinine Glucose POC Glucose 167 H 125 H 133 H Lactic Acid Calcium Ionized Calcium Phosphorus Magnesium Direct Bilirubin AST ALT Alkaline Phosphatase Lactate Dehydrogenase Troponin T C-Reactive Protein Total Protein Albumin Prealbumin Triglycerides Cholesterol LDL Cholesterol Direct HDL Cholesterol 25-OH Vitamin D Total PTH Intact Urine pH Urine WBC (Auto) Urine Creatinine Urine Total Protein Fluid Total Protein Vancomycin Trough Rheumatoid Factor Complement C4 Miscellaneous Test Crossmatch 12/31/16 01/01/17 01/01/17 23:55 05:00 05:12 WBC RBC Hgb Hct MCV MCH MCHC RDW Plt Count Lymph % (Auto) [place] % (Auto) Lymph # [place] # Baso # Seg Neutrophils % Seg Neuts % (Manual) Lymphocytes % (Manual) Monocytes % (Manual) Eosinophils % (Manual) Basophils % (Manual) Nucleated RBC % Seg Neutrophils # Seg Neutrophils # Man Lymphocytes # (Manual) Monocytes # (Manual) Eosinophils # (Manual) Basophils # (Manual) PT INR Fibrinogen dRVVT Confirm Interp Factor V Activity POC ABG pH POC ABG pCO2 POC ABG pO2 ABG pO2 ABG HCO3 ABG Base Excess ABG Hemoglobin Oxyhemoglobin Sodium Potassium Chloride Carbon Dioxide BUN 76 H Creatinine 1.5 H Glucose 109 H POC Glucose 129 H 129 H Lactic Acid Calcium Ionized Calcium Phosphorus Magnesium Direct Bilirubin AST ALT Alkaline Phosphatase 536 H Lactate Dehydrogenase Troponin T C-Reactive Protein Total Protein Albumin 1.5 L Prealbumin Triglycerides Cholesterol LDL Cholesterol Direct HDL Cholesterol 25-OH Vitamin D Total PTH Intact Urine pH Urine WBC (Auto) Urine Creatinine Urine Total Protein Fluid Total Protein Vancomycin Trough Rheumatoid Factor Complement C4 Miscellaneous Test Crossmatch 01/01/17 01/01/17 01/01/17 12:25 17:01 23:32 WBC RBC Hgb Hct MCV MCH MCHC RDW Plt Count Lymph % (Auto) [place] % (Auto) Lymph # [place] # Baso # Seg Neutrophils % Seg Neuts % (Manual) Lymphocytes % (Manual) Monocytes % (Manual) Eosinophils % (Manual) Basophils % (Manual) Nucleated RBC % Seg Neutrophils # Seg Neutrophils # Man Lymphocytes # (Manual) Monocytes # (Manual) Eosinophils # (Manual) Basophils # (Manual) PT INR Fibrinogen dRVVT Confirm Interp Factor V Activity POC ABG pH POC ABG pCO2 POC ABG pO2 ABG pO2 ABG HCO3 ABG Base Excess ABG Hemoglobin Oxyhemoglobin Sodium Potassium Chloride Carbon Dioxide BUN Creatinine Glucose POC Glucose 140 H 142 H 112 H Lactic Acid Calcium Ionized Calcium Phosphorus Magnesium Direct Bilirubin AST ALT Alkaline Phosphatase Lactate Dehydrogenase Troponin T C-Reactive Protein Total Protein Albumin Prealbumin Triglycerides Cholesterol LDL Cholesterol Direct HDL Cholesterol 25-OH Vitamin D Total PTH Intact Urine pH Urine WBC (Auto) Urine Creatinine Urine Total Protein Fluid Total Protein Vancomycin Trough Rheumatoid Factor Complement C4 Miscellaneous Test Crossmatch 01/02/17 01/02/17 01/02/17 04:56 06:00 11:37 WBC RBC Hgb Hct MCV MCH MCHC RDW Plt Count Lymph % (Auto) [place] % (Auto) Lymph # [place] # Baso # Seg Neutrophils % Seg Neuts % (Manual) Lymphocytes % (Manual) Monocytes % (Manual) Eosinophils % (Manual) Basophils % (Manual) Nucleated RBC % Seg Neutrophils # Seg Neutrophils # Man Lymphocytes # (Manual) Monocytes # (Manual) Eosinophils # (Manual) Basophils # (Manual) PT INR Fibrinogen dRVVT Confirm Interp Factor V Activity POC ABG pH POC ABG pCO2 POC ABG pO2 ABG pO2 ABG HCO3 ABG Base Excess ABG Hemoglobin Oxyhemoglobin Sodium Potassium Chloride Carbon Dioxide BUN 88 H Creatinine 1.7 H Glucose 113 H POC Glucose 136 H 200 H Lactic Acid Calcium Ionized Calcium Phosphorus Magnesium Direct Bilirubin AST ALT Alkaline Phosphatase Lactate Dehydrogenase Troponin T C-Reactive Protein Total Protein Albumin Prealbumin Triglycerides Cholesterol LDL Cholesterol Direct HDL Cholesterol 25-OH Vitamin D Total PTH Intact Urine pH Urine WBC (Auto) Urine Creatinine Urine Total Protein Fluid Total Protein Vancomycin Trough Rheumatoid Factor Complement C4 Miscellaneous Test Crossmatch 01/02/17 01/02/17 01/03/17 17:42 22:52 04:54 WBC RBC Hgb Hct MCV MCH MCHC RDW Plt Count Lymph % (Auto) [place] % (Auto) Lymph # [place] # Baso # Seg Neutrophils % Seg Neuts % (Manual) Lymphocytes % (Manual) Monocytes % (Manual) Eosinophils % (Manual) Basophils % (Manual) Nucleated RBC % Seg Neutrophils # Seg Neutrophils # Man Lymphocytes # (Manual) Monocytes # (Manual) Eosinophils # (Manual) Basophils # (Manual) PT INR Fibrinogen dRVVT Confirm Interp Factor V Activity POC ABG pH POC ABG pCO2 POC ABG pO2 ABG pO2 ABG HCO3 ABG Base Excess ABG Hemoglobin Oxyhemoglobin Sodium Potassium Chloride Carbon Dioxide BUN Creatinine Glucose POC Glucose 112 H 133 H 111 H Lactic Acid Calcium Ionized Calcium Phosphorus Magnesium Direct Bilirubin AST ALT Alkaline Phosphatase Lactate Dehydrogenase Troponin T C-Reactive Protein Total Protein Albumin Prealbumin Triglycerides Cholesterol LDL Cholesterol Direct HDL Cholesterol 25-OH Vitamin D Total PTH Intact Urine pH Urine WBC (Auto) Urine Creatinine Urine Total Protein Fluid Total Protein Vancomycin Trough Rheumatoid Factor Complement C4 Miscellaneous Test Crossmatch 01/03/17 01/03/1701/03/17 05:00 05:00 14:02 WBC 11.2 H RBC 2.56 L Hgb 7.2 L Hct 22.3 L MCV MCH MCHC RDW 17.3 H Plt Count Lymph % (Auto) [place] % (Auto) 10.0 H Lymph # [place] # 1.1 H Baso # Seg Neutrophils % 70.5 H Seg Neuts % (Manual) Lymphocytes % (Manual) Monocytes % (Manual) Eosinophils % (Manual) Basophils % (Manual) Nucleated RBC % Seg Neutrophils # 7.9 H Seg Neutrophils # Man Lymphocytes # (Manual) Monocytes # (Manual) Eosinophils # (Manual) Basophils # (Manual) PT INR Fibrinogen dRVVT Confirm Interp Factor V Activity POC ABG pH POC ABG pCO2 POC ABG pO2 ABG pO2 ABG HCO3 ABG Base Excess ABG Hemoglobin Oxyhemoglobin Sodium Potassium Chloride Carbon Dioxide BUN 60 H Creatinine 1.3 H Glucose 110 H POC Glucose 119 H Lactic Acid Calcium Ionized Calcium Phosphorus Magnesium Direct Bilirubin AST ALT Alkaline Phosphatase Lactate Dehydrogenase Troponin T C-Reactive Protein Total Protein Albumin Prealbumin Triglycerides Cholesterol LDL Cholesterol Direct HDL Cholesterol 25-OH Vitamin D Total PTH Intact Urine pH Urine WBC (Auto) Urine Creatinine Urine Total Protein Fluid Total Protein Vancomycin Trough Rheumatoid Factor Complement C4 Miscellaneous Test Crossmatch 01/03/17 01/03/17 01/04/17 18:13 23:40 05:57 WBC RBC Hgb Hct MCV MCH MCHC RDW Plt Count Lymph % (Auto) [place] % (Auto) Lymph # [place] # Baso # Seg Neutrophils % Seg Neuts % (Manual) Lymphocytes % (Manual) Monocytes % (Manual) Eosinophils % (Manual) Basophils % (Manual) Nucleated RBC % Seg Neutrophils # Seg Neutrophils # Man Lymphocytes # (Manual) Monocytes # (Manual) Eosinophils # (Manual) Basophils # (Manual) PT INR Fibrinogen dRVVT Confirm Interp Factor V Activity POC ABG pH POC ABG pCO2 POC ABG pO2 ABG pO2 ABG HCO3 ABG Base Excess ABG Hemoglobin Oxyhemoglobin Sodium Potassium Chloride Carbon Dioxide BUN Creatinine Glucose POC Glucose 107 H 129 H 111 H Lactic Acid Calcium Ionized Calcium Phosphorus Magnesium Direct Bilirubin AST ALT Alkaline Phosphatase Lactate Dehydrogenase Troponin T C-Reactive Protein Total Protein Albumin Prealbumin Triglycerides Cholesterol LDL Cholesterol Direct HDL Cholesterol 25-OH Vitamin D Total PTH Intact Urine pH Urine WBC (Auto) Urine Creatinine Urine Total Protein Fluid Total Protein Vancomycin Trough Rheumatoid Factor Complement C4 Miscellaneous Test Crossmatch 01/04/17 01/04/17 01/04/17 12:46 15:27 17:11 WBC RBC Hgb Hct MCV MCH MCHC RDW Plt Count Lymph % (Auto) [place] % (Auto) Lymph # [place] # Baso # Seg Neutrophils % Seg Neuts % (Manual) Lymphocytes % (Manual) Monocytes % (Manual) Eosinophils % (Manual) Basophils % (Manual) Nucleated RBC % Seg Neutrophils # Seg Neutrophils # Man Lymphocytes # (Manual) Monocytes # (Manual) Eosinophils # (Manual) Basophils # (Manual) PT INR Fibrinogen dRVVT Confirm Interp Factor V Activity POC ABG pH POC ABG pCO2 POC ABG pO2 ABG pO2 ABG HCO3 ABG Base Excess ABG Hemoglobin Oxyhemoglobin Sodium Potassium Chloride Carbon Dioxide BUN 43 H Creatinine Glucose 124 H POC Glucose 159 H 125 H Lactic Acid Calcium 8.0 L Ionized Calcium Phosphorus 2.10 L Magnesium Direct Bilirubin AST ALT Alkaline Phosphatase Lactate Dehydrogenase Troponin T C-Reactive Protein Total Protein Albumin Prealbumin Triglycerides Cholesterol LDL Cholesterol Direct HDL Cholesterol 25-OH Vitamin D Total PTH Intact Urine pH Urine WBC (Auto) Urine Creatinine Urine Total Protein Fluid Total Protein Vancomycin Trough Rheumatoid Factor Complement C4 Miscellaneous Test Crossmatch 01/04/17 01/05/17 01/05/17 23:31 04:00 05:46 WBC RBC Hgb Hct MCV MCH MCHC RDW Plt Count Lymph % (Auto) [place] % (Auto) Lymph # [place] # Baso # Seg Neutrophils % Seg Neuts % (Manual) Lymphocytes % (Manual) Monocytes % (Manual) Eosinophils % (Manual) Basophils % (Manual) Nucleated RBC % Seg Neutrophils # Seg Neutrophils # Man Lymphocytes # (Manual) Monocytes # (Manual) Eosinophils # (Manual) Basophils # (Manual) PT INR Fibrinogen dRVVT Confirm Interp Factor V Activity POC ABG pH POC ABG pCO2 POC ABG pO2 ABG pO2 ABG HCO3 ABG Base Excess ABG Hemoglobin Oxyhemoglobin Sodium Potassium Chloride Carbon Dioxide BUN 52 H Creatinine 1.3 H Glucose 113 H POC Glucose 123 H 118 H Lactic Acid Calcium Ionized Calcium Phosphorus 2.40 L Magnesium Direct Bilirubin AST ALT Alkaline Phosphatase Lactate Dehydrogenase Troponin T C-Reactive Protein Total Protein Albumin Prealbumin Triglycerides Cholesterol LDL Cholesterol Direct HDL Cholesterol 25-OH Vitamin D Total PTH Intact Urine pH Urine WBC (Auto) Urine Creatinine Urine Total Protein Fluid Total Protein Vancomycin Trough Rheumatoid Factor Complement C4 Miscellaneous Test Crossmatch 01/05/17 01/05/17 01/05/17 11:41 17:48 23:27 WBC RBC Hgb Hct MCV MCH MCHC RDW Plt Count Lymph % (Auto) [place] % (Auto) Lymph # [place] # Baso # Seg Neutrophils % Seg Neuts % (Manual) Lymphocytes % (Manual) Monocytes % (Manual) Eosinophils % (Manual) Basophils % (Manual) Nucleated RBC % Seg Neutrophils # Seg Neutrophils # Man Lymphocytes # (Manual) Monocytes # (Manual) Eosinophils # (Manual) Basophils # (Manual) PT INR Fibrinogen dRVVT Confirm Interp Factor V Activity POC ABG pH POC ABG pCO2 POC ABG pO2 ABG pO2 ABG HCO3 ABG Base Excess ABG Hemoglobin Oxyhemoglobin Sodium Potassium Chloride Carbon Dioxide BUN Creatinine Glucose POC Glucose 163 H 142 H 155 H Lactic Acid Calcium Ionized Calcium Phosphorus Magnesium Direct Bilirubin AST ALT Alkaline Phosphatase Lactate Dehydrogenase Troponin T C-Reactive Protein Total Protein Albumin Prealbumin Triglycerides Cholesterol LDL Cholesterol Direct HDL Cholesterol 25-OH Vitamin D Total PTH Intact Urine pH Urine WBC (Auto) Urine Creatinine Urine Total Protein Fluid Total Protein Vancomycin Trough Rheumatoid Factor Complement C4 Miscellaneous Test Crossmatch 01/06/17 01/06/17 01/06/17 05:20 07:35 11:18 WBC RBC Hgb Hct MCV MCH MCHC RDW Plt Count Lymph % (Auto) [place] % (Auto) Lymph # [place] # Baso # Seg Neutrophils % Seg Neuts % (Manual) Lymphocytes % (Manual) Monocytes % (Manual) Eosinophils % (Manual) Basophils % (Manual) Nucleated RBC % Seg Neutrophils # Seg Neutrophils # Man Lymphocytes # (Manual) Monocytes # (Manual) Eosinophils # (Manual) Basophils # (Manual) PT INR Fibrinogen dRVVT Confirm Interp Factor V Activity POC ABG pH POC ABG pCO2 POC ABG pO2 ABG pO2 ABG HCO3 ABG Base Excess ABG Hemoglobin Oxyhemoglobin Sodium Potassium Chloride Carbon Dioxide BUN 74 H Creatinine 1.6 H Glucose 135 H POC Glucose 108 H 149 H Lactic Acid Calcium Ionized Calcium Phosphorus Magnesium Direct Bilirubin AST ALT Alkaline Phosphatase Lactate Dehydrogenase Troponin T C-Reactive Protein Total Protein Albumin Prealbumin Triglycerides Cholesterol LDL Cholesterol Direct HDL Cholesterol 25-OH Vitamin D Total PTH Intact Urine pH Urine WBC (Auto) Urine Creatinine Urine Total Protein Fluid Total Protein Vancomycin Trough Rheumatoid Factor Complement C4 Miscellaneous Test Crossmatch 01/06/17 01/07/1701/07/17 17:17 00:23 05:31 WBC RBC Hgb Hct MCV MCH MCHC RDW Plt Count Lymph % (Auto) [place] % (Auto) Lymph # [place] # Baso # Seg Neutrophils % Seg Neuts % (Manual) Lymphocytes % (Manual) Monocytes % (Manual) Eosinophils % (Manual) Basophils % (Manual) Nucleated RBC % Seg Neutrophils # Seg Neutrophils # Man Lymphocytes # (Manual) Monocytes # (Manual) Eosinophils # (Manual) Basophils # (Manual) PT INR Fibrinogen dRVVT Confirm Interp Factor V Activity POC ABG pH POC ABG pCO2 POC ABG pO2 ABG pO2 ABG HCO3 ABG Base Excess ABG Hemoglobin Oxyhemoglobin Sodium Potassium Chloride Carbon Dioxide BUN Creatinine Glucose POC Glucose 146 H 165 H 153 H Lactic Acid Calcium Ionized Calcium Phosphorus Magnesium Direct Bilirubin AST ALT Alkaline Phosphatase Lactate Dehydrogenase Troponin T C-Reactive Protein Total Protein Albumin Prealbumin Triglycerides Cholesterol LDL Cholesterol Direct HDL Cholesterol 25-OH Vitamin D Total PTH Intact Urine pH Urine WBC (Auto) Urine Creatinine Urine Total Protein Fluid Total Protein Vancomycin Trough Rheumatoid Factor Complement C4 Miscellaneous Test Crossmatch 01/07/17 01/07/17 01/07/17 06:00 11:39 17:11 WBC RBC Hgb Hct MCV MCH MCHC RDW Plt Count Lymph % (Auto) [place] % (Auto) Lymph # [place] # Baso # Seg Neutrophils % Seg Neuts % (Manual) Lymphocytes % (Manual) Monocytes % (Manual) Eosinophils % (Manual) Basophils % (Manual) Nucleated RBC % Seg Neutrophils # Seg Neutrophils # Man Lymphocytes # (Manual) Monocytes # (Manual) Eosinophils # (Manual) Basophils # (Manual) PT INR Fibrinogen dRVVT Confirm Interp Factor V Activity POC ABG pH POC ABG pCO2 POC ABG pO2 ABG pO2 ABG HCO3 ABG Base Excess ABG Hemoglobin Oxyhemoglobin Sodium Potassium Chloride Carbon Dioxide BUN 42 H Creatinine Glucose 175 H POC Glucose 163 H 163 H Lactic Acid Calcium Ionized Calcium Phosphorus 2.40 L D Magnesium Direct Bilirubin AST ALT Alkaline Phosphatase Lactate Dehydrogenase Troponin T C-Reactive Protein Total Protein Albumin Prealbumin Triglycerides Cholesterol LDL Cholesterol Direct HDL Cholesterol 25-OH Vitamin D Total PTH Intact Urine pH Urine WBC (Auto) Urine Creatinine Urine Total Protein Fluid Total Protein Vancomycin Trough Rheumatoid Factor Complement C4 Miscellaneous Test Crossmatch 01/07/17 01/08/17 01/08/17 23:40 05:00 05:00 WBC 27.4 H RBC 2.27 L Hgb 6.1 L Hct 20.4 L MCV MCH 27 L MCHC RDW 17.8 H Plt Count Lymph % (Auto) [place] % (Auto) Lymph # [place] # Baso # Seg Neutrophils % Seg Neuts % (Manual) Lymphocytes % (Manual) Monocytes % (Manual) Eosinophils % (Manual) Basophils % (Manual) Nucleated RBC % Seg Neutrophils # Seg Neutrophils # Man Lymphocytes # (Manual) Monocytes # (Manual) Eosinophils # (Manual) Basophils # (Manual) PT INR Fibrinogen dRVVT Confirm Interp Factor V Activity POC ABG pH POC ABG pCO2 POC ABG pO2 ABG pO2 ABG HCO3 ABG Base Excess ABG Hemoglobin Oxyhemoglobin Sodium Potassium Chloride Carbon Dioxide 16 L D BUN 62 H Creatinine 1.6 H D Glucose 103 H POC Glucose 135 H Lactic Acid Calcium Ionized Calcium Phosphorus Magnesium Direct Bilirubin AST ALT Alkaline Phosphatase Lactate Dehydrogenase Troponin T C-Reactive Protein Total Protein Albumin Prealbumin Triglycerides Cholesterol LDL Cholesterol Direct HDL Cholesterol 25-OH Vitamin D Total PTH Intact Urine pH Urine WBC (Auto) Urine Creatinine Urine Total Protein Fluid Total Protein Vancomycin Trough Rheumatoid Factor Complement C4 Miscellaneous Test Crossmatch 01/08/17 01/08/17 01/08/17 05:25 10:37 10:37 WBC RBC Hgb Hct MCV MCH MCHC RDW Plt Count Lymph % (Auto) [place] % (Auto) Lymph # [place] # Baso # Seg Neutrophils % Seg Neuts % (Manual) Lymphocytes % (Manual) Monocytes % (Manual) Eosinophils % (Manual) Basophils % (Manual) Nucleated RBC % Seg Neutrophils # Seg Neutrophils # Man Lymphocytes # (Manual) Monocytes # (Manual) Eosinophils # (Manual) Basophils # (Manual) PT INR Fibrinogen dRVVT Confirm Interp Factor V Activity POC ABG pH POC ABG pCO2 POC ABG pO2 ABG pO2 ABG HCO3 ABG Base Excess ABG Hemoglobin Oxyhemoglobin Sodium Potassium Chloride Carbon Dioxide BUN Creatinine Glucose POC Glucose 106 H Lactic Acid Calcium Ionized Calcium Phosphorus Magnesium Direct Bilirubin AST ALT Alkaline Phosphatase Lactate Dehydrogenase Troponin T C-Reactive Protein 24.40 H Total Protein Albumin Prealbumin Triglycerides Cholesterol LDL Cholesterol Direct HDL Cholesterol 25-OH Vitamin D Total PTH Intact Urine pH Urine WBC (Auto) Urine Creatinine Urine Total Protein Fluid Total Protein Vancomycin Trough Rheumatoid Factor Complement C4 Miscellaneous Test Crossmatch See Detail 01/08/17 01/08/17 01/08/17 10:37 11:33 15:15 WBC RBC Hgb Hct MCV MCH MCHC RDW Plt Count Lymph % (Auto) [place] % (Auto) Lymph # [place] # Baso # Seg Neutrophils % Seg Neuts % (Manual) Lymphocytes % (Manual) Monocytes % (Manual) Eosinophils % (Manual) Basophils % (Manual) Nucleated RBC % Seg Neutrophils # Seg Neutrophils # Man Lymphocytes # (Manual) Monocytes # (Manual) Eosinophils # (Manual) Basophils # (Manual) PT INR Fibrinogen dRVVT Confirm Interp Factor V Activity POC ABG pH POC ABG pCO2 POC ABG pO2 ABG pO2 ABG HCO3 ABG Base Excess ABG Hemoglobin Oxyhemoglobin Sodium Potassium Chloride Carbon Dioxide BUN Creatinine Glucose POC Glucose 157 H Lactic Acid 9.70 H* 9.10 H* Calcium Ionized Calcium Phosphorus Magnesium Direct Bilirubin AST ALT Alkaline Phosphatase Lactate Dehydrogenase Troponin T C-Reactive Protein Total Protein Albumin Prealbumin Triglycerides Cholesterol LDL Cholesterol Direct HDL Cholesterol 25-OH Vitamin D Total PTH Intact Urine pH Urine WBC (Auto) Urine Creatinine Urine Total Protein Fluid Total Protein Vancomycin Trough Rheumatoid Factor Complement C4 Miscellaneous Test Crossmatch 01/08/17 01/08/17 01/09/17 17:19 23:12 04:40 WBC RBC Hgb Hct MCV MCH MCHC RDW Plt Count Lymph % (Auto) [place] % (Auto) Lymph # [place] # Baso # Seg Neutrophils % Seg Neuts % (Manual) Lymphocytes % (Manual) Monocytes % (Manual) Eosinophils % (Manual) Basophils % (Manual) Nucleated RBC % Seg Neutrophils # Seg Neutrophils # Man Lymphocytes # (Manual) Monocytes # (Manual) Eosinophils # (Manual) Basophils # (Manual) PT INR Fibrinogen dRVVT Confirm Interp Factor V Activity POC ABG pH POC ABG pCO2 POC ABG pO2 ABG pO2 ABG HCO3 ABG Base Excess ABG Hemoglobin Oxyhemoglobin Sodium 147 H Potassium Chloride Carbon Dioxide BUN 82 H Creatinine 1.8 H Glucose 137 H POC Glucose 164 H 157 H Lactic Acid Calcium Ionized Calcium Phosphorus Magnesium Direct Bilirubin AST ALT Alkaline Phosphatase Lactate Dehydrogenase Troponin T C-Reactive Protein Total Protein Albumin Prealbumin Triglycerides Cholesterol LDL Cholesterol Direct HDL Cholesterol 25-OH Vitamin D Total PTH Intact Urine pH Urine WBC (Auto) Urine Creatinine Urine Total Protein Fluid Total Protein Vancomycin Trough Rheumatoid Factor Complement C4 Miscellaneous Test Crossmatch 01/09/17 01/09/17 01/09/17 05:42 08:22 10:57 WBC RBC Hgb Hct MCV MCH MCHC RDW Plt Count Lymph % (Auto) [place] % (Auto) Lymph # [place] # Baso # Seg Neutrophils % Seg Neuts % (Manual) Lymphocytes % (Manual) Monocytes % (Manual) Eosinophils % (Manual) Basophils % (Manual) Nucleated RBC % Seg Neutrophils # Seg Neutrophils # Man Lymphocytes # (Manual) Monocytes # (Manual) Eosinophils # (Manual) Basophils # (Manual) PT INR Fibrinogen dRVVT Confirm Interp Factor V Activity POC ABG pH POC ABG pCO2 POC ABG pO2 ABG pO2 ABG HCO3 ABG Base Excess ABG Hemoglobin Oxyhemoglobin Sodium Potassium Chloride Carbon Dioxide BUN Creatinine Glucose POC Glucose 156 H 122 H Lactic Acid 2.30 H* Calcium Ionized Calcium Phosphorus Magnesium Direct Bilirubin AST ALT Alkaline Phosphatase Lactate Dehydrogenase Troponin T C-Reactive Protein Total Protein Albumin Prealbumin Triglycerides Cholesterol LDL Cholesterol Direct HDL Cholesterol 25-OH Vitamin D Total PTH Intact Urine pH Urine WBC (Auto) Urine Creatinine Urine Total Protein Fluid Total Protein Vancomycin Trough Rheumatoid Factor Complement C4 Miscellaneous Test Crossmatch 01/09/17 01/09/17 01/09/17 13:30 17:14 18:45 WBC RBC Hgb Hct MCV MCH MCHC RDW Plt Count Lymph % (Auto) [place] % (Auto) Lymph # [place] # Baso # Seg Neutrophils % Seg Neuts % (Manual) Lymphocytes % (Manual) Monocytes % (Manual) Eosinophils % (Manual) Basophils % (Manual) Nucleated RBC % Seg Neutrophils # Seg Neutrophils # Man Lymphocytes # (Manual) Monocytes # (Manual) Eosinophils # (Manual) Basophils # (Manual) PT INR Fibrinogen dRVVT Confirm Interp Factor V Activity POC ABG pH POC ABG pCO2 POC ABG pO2 ABG pO2 ABG HCO3 ABG Base Excess ABG Hemoglobin Oxyhemoglobin Sodium Potassium Chloride Carbon Dioxide BUN Creatinine Glucose POC Glucose 127 H Lactic Acid Calcium Ionized Calcium Phosphorus Magnesium Direct Bilirubin AST ALT Alkaline Phosphatase Lactate Dehydrogenase Troponin T C-Reactive Protein 24.70 H Total Protein Albumin Prealbumin Triglycerides Cholesterol LDL Cholesterol Direct HDL Cholesterol 25-OH Vitamin D Total PTH Intact Urine pH Urine WBC (Auto) Urine Creatinine Urine Total Protein Fluid Total Protein Vancomycin Trough Rheumatoid Factor Complement C4 Miscellaneous Test Flexitest 1 H Crossmatch 01/10/17 01/10/17 01/10/17 01:21 04:00 04:00 WBC 18.1 H RBC 3.22 L Hgb 8.8 L Hct 27.0 L D MCV MCH 27 L MCHC RDW 17.0 H Plt Count Lymph % (Auto) [place] % (Auto) Lymph # [place] # Baso # Seg Neutrophils % Seg Neuts % (Manual) Lymphocytes % (Manual) Monocytes % (Manual) Eosinophils % (Manual) Basophils % (Manual) Nucleated RBC % Seg Neutrophils # Seg Neutrophils # Man Lymphocytes # (Manual) Monocytes # (Manual) Eosinophils # (Manual) Basophils # (Manual) PT INR Fibrinogen dRVVT Confirm Interp Factor V Activity POC ABG pH POC ABG pCO2 POC ABG pO2 ABG pO2 ABG HCO3 ABG Base Excess ABG Hemoglobin Oxyhemoglobin Sodium Potassium Chloride Carbon Dioxide BUN 59 H Creatinine 1.3 H Glucose 122 H POC Glucose 160 H Lactic Acid Calcium Ionized Calcium Phosphorus Magnesium Direct Bilirubin AST ALT Alkaline Phosphatase Lactate Dehydrogenase Troponin T C-Reactive Protein Total Protein Albumin Prealbumin Triglycerides Cholesterol LDL Cholesterol Direct HDL Cholesterol 25-OH Vitamin D Total PTH Intact Urine pH Urine WBC (Auto) Urine Creatinine Urine Total Protein Fluid Total Protein Vancomycin Trough Rheumatoid Factor Complement C4 Miscellaneous Test Crossmatch 01/10/17 01/10/17 01/10/17 05:36 12:14 17:55 WBC RBC Hgb Hct MCV MCH MCHC RDW Plt Count Lymph % (Auto) [place] % (Auto) Lymph # [place] # Baso # Seg Neutrophils % Seg Neuts % (Manual) Lymphocytes % (Manual) Monocytes % (Manual) Eosinophils % (Manual) Basophils % (Manual) Nucleated RBC % Seg Neutrophils # Seg Neutrophils # Man Lymphocytes # (Manual) Monocytes # (Manual) Eosinophils # (Manual) Basophils # (Manual) PT INR Fibrinogen dRVVT Confirm Interp Factor V Activity POC ABG pH POC ABG pCO2 POC ABG pO2 ABG pO2 ABG HCO3 ABG Base Excess ABG Hemoglobin Oxyhemoglobin Sodium Potassium Chloride Carbon Dioxide BUN Creatinine Glucose POC Glucose 163 H 120 H 144 H Lactic Acid Calcium Ionized Calcium Phosphorus Magnesium Direct Bilirubin AST ALT Alkaline Phosphatase Lactate Dehydrogenase Troponin T C-Reactive Protein Total Protein Albumin Prealbumin Triglycerides Cholesterol LDL Cholesterol Direct HDL Cholesterol 25-OH Vitamin D Total PTH Intact Urine pH Urine WBC (Auto) Urine Creatinine Urine Total Protein Fluid Total Protein Vancomycin Trough Rheumatoid Factor Complement C4 Miscellaneous Test Crossmatch 01/11/17 01/11/17 01/11/17 00:09 04:00 04:00 WBC 15.8 H RBC 3.04 L Hgb 8.2 L Hct 25.5 L MCV MCH 27 L MCHC RDW 17.3 H Plt Count Lymph % (Auto) [place] % (Auto) Lymph # [place] # Baso # Seg Neutrophils % Seg Neuts % (Manual) Lymphocytes % (Manual) Monocytes % (Manual) Eosinophils % (Manual) Basophils % (Manual) Nucleated RBC % Seg Neutrophils # Seg Neutrophils # Man Lymphocytes # (Manual) Monocytes # (Manual) Eosinophils # (Manual) Basophils # (Manual) PT INR Fibrinogen dRVVT Confirm Interp Factor V Activity POC ABG pH POC ABG pCO2 POC ABG pO2 ABG pO2 ABG HCO3 ABG Base Excess ABG Hemoglobin Oxyhemoglobin Sodium Potassium Chloride Carbon Dioxide BUN 78 H Creatinine 1.6 H Glucose 109 H POC Glucose 122 H Lactic Acid Calcium Ionized Calcium Phosphorus Magnesium Direct Bilirubin AST ALT Alkaline Phosphatase Lactate Dehydrogenase Troponin T C-Reactive Protein Total Protein Albumin Prealbumin Triglycerides Cholesterol LDL Cholesterol Direct HDL Cholesterol 25-OH Vitamin D Total PTH Intact Urine pH Urine WBC (Auto) Urine Creatinine Urine Total Protein Fluid Total Protein Vancomycin Trough Rheumatoid Factor Complement C4 Miscellaneous Test Crossmatch 01/11/17 01/11/17 01/11/17 12:46 18:23 23:42 WBC RBC Hgb Hct MCV MCH MCHC RDW Plt Count Lymph % (Auto) [place] % (Auto) Lymph # [place] # Baso # Seg Neutrophils % Seg Neuts % (Manual) Lymphocytes % (Manual) Monocytes % (Manual) Eosinophils % (Manual) Basophils % (Manual) Nucleated RBC % Seg Neutrophils # Seg Neutrophils # Man Lymphocytes # (Manual) Monocytes # (Manual) Eosinophils # (Manual) Basophils # (Manual) PT INR Fibrinogen dRVVT Confirm Interp Factor V Activity POC ABG pH POC ABG pCO2 POC ABG pO2 ABG pO2 ABG HCO3 ABG Base Excess ABG Hemoglobin Oxyhemoglobin Sodium Potassium Chloride Carbon Dioxide BUN Creatinine Glucose POC Glucose 148 H 125 H 124 H Lactic Acid Calcium Ionized Calcium Phosphorus Magnesium Direct Bilirubin AST ALT Alkaline Phosphatase Lactate Dehydrogenase Troponin T C-Reactive Protein Total Protein Albumin Prealbumin Triglycerides Cholesterol LDL Cholesterol Direct HDL Cholesterol 25-OH Vitamin D Total PTH Intact Urine pH Urine WBC (Auto) Urine Creatinine Urine Total Protein Fluid Total Protein Vancomycin Trough Rheumatoid Factor Complement C4 Miscellaneous Test Crossmatch 01/12/17 01/12/17 01/12/17 04:30 04:30 05:47 WBC 15.8 H RBC 3.31 L Hgb 8.9 L Hct 27.9 L MCV MCH 27 L MCHC RDW 17.4 H Plt Count Lymph % (Auto) [place] % (Auto) Lymph # [place] # Baso # Seg Neutrophils % Seg Neuts % (Manual) Lymphocytes % (Manual) Monocytes % (Manual) Eosinophils % (Manual) Basophils % (Manual) Nucleated RBC % Seg Neutrophils # Seg Neutrophils # Man Lymphocytes # (Manual) Monocytes # (Manual) Eosinophils # (Manual) Basophils # (Manual) PT INR Fibrinogen dRVVT Confirm Interp Factor V Activity POC ABG pH POC ABG pCO2 POC ABG pO2 ABG pO2 ABG HCO3 ABG Base Excess ABG Hemoglobin Oxyhemoglobin Sodium Potassium Chloride Carbon Dioxide BUN 57 H Creatinine Glucose 121 H POC Glucose 110 H Lactic Acid Calcium Ionized Calcium Phosphorus 2.10 L Magnesium Direct Bilirubin AST ALT Alkaline Phosphatase Lactate Dehydrogenase Troponin T C-Reactive Protein Total Protein Albumin Prealbumin Triglycerides Cholesterol LDL Cholesterol Direct HDL Cholesterol 25-OH Vitamin D Total PTH Intact Urine pH Urine WBC (Auto) Urine Creatinine Urine Total Protein Fluid Total Protein Vancomycin Trough Rheumatoid Factor Complement C4 Miscellaneous Test Crossmatch 01/12/17 01/12/17 01/12/17 11:35 17:45 23:14 WBC RBC Hgb Hct MCV MCH MCHC RDW Plt Count Lymph % (Auto) [place] % (Auto) Lymph # [place] # Baso # Seg Neutrophils % Seg Neuts % (Manual) Lymphocytes % (Manual) Monocytes % (Manual) Eosinophils % (Manual) Basophils % (Manual) Nucleated RBC % Seg Neutrophils # Seg Neutrophils # Man Lymphocytes # (Manual) Monocytes # (Manual) Eosinophils # (Manual) Basophils # (Manual) PT INR Fibrinogen dRVVT Confirm Interp Factor V Activity POC ABG pH POC ABG pCO2 POC ABG pO2 ABG pO2 ABG HCO3 ABG Base Excess ABG Hemoglobin Oxyhemoglobin Sodium Potassium Chloride Carbon Dioxide BUN Creatinine Glucose POC Glucose 146 H 117 H 123 H Lactic Acid Calcium Ionized Calcium Phosphorus Magnesium Direct Bilirubin AST ALT Alkaline Phosphatase Lactate Dehydrogenase Troponin T C-Reactive Protein Total Protein Albumin Prealbumin Triglycerides Cholesterol LDL Cholesterol Direct HDL Cholesterol 25-OH Vitamin D Total PTH Intact Urine pH Urine WBC (Auto) Urine Creatinine Urine Total Protein Fluid Total Protein Vancomycin Trough Rheumatoid Factor Complement C4 Miscellaneous Test Crossmatch 01/13/17 01/13/17 01/13/17 05:32 06:00 12:10 WBC RBC Hgb Hct MCV MCH MCHC RDW Plt Count Lymph % (Auto) [place] % (Auto) Lymph # [place] # Baso # Seg Neutrophils % Seg Neuts % (Manual) Lymphocytes % (Manual) Monocytes % (Manual) Eosinophils % (Manual) Basophils % (Manual) Nucleated RBC % Seg Neutrophils # Seg Neutrophils # Man Lymphocytes # (Manual) Monocytes # (Manual) Eosinophils # (Manual) Basophils # (Manual) PT INR Fibrinogen dRVVT Confirm Interp Factor V Activity POC ABG pH POC ABG pCO2 POC ABG pO2 ABG pO2 ABG HCO3 ABG Base Excess ABG Hemoglobin Oxyhemoglobin Sodium Potassium Chloride Carbon Dioxide BUN 80 H Creatinine 1.4 H Glucose 106 H POC Glucose 106 H Lactic Acid Calcium Ionized Calcium Phosphorus Magnesium Direct Bilirubin AST ALT Alkaline Phosphatase Lactate Dehydrogenase Troponin T C-Reactive Protein Total Protein Albumin Prealbumin Triglycerides Cholesterol LDL Cholesterol Direct HDL Cholesterol 25-OH Vitamin D Total PTH Intact Urine pH Urine WBC (Auto) Urine Creatinine Urine Total Protein Fluid Total Protein 3.0 L Vancomycin Trough Rheumatoid Factor Complement C4 Miscellaneous Test Crossmatch 01/13/17 01/13/17 01/13/17 12:17 15:50 17:30 WBC RBC Hgb Hct MCV MCH MCHC RDW Plt Count Lymph % (Auto) [place] % (Auto) Lymph # [place] # Baso # Seg Neutrophils % Seg Neuts % (Manual) Lymphocytes % (Manual) Monocytes % (Manual) Eosinophils % (Manual) Basophils % (Manual) Nucleated RBC % Seg Neutrophils # Seg Neutrophils # Man Lymphocytes # (Manual) Monocytes # (Manual) Eosinophils # (Manual) Basophils # (Manual) PT 15.4 H INR 1.16 H Fibrinogen dRVVT Confirm Interp Factor V Activity POC ABG pH POC ABG pCO2 POC ABG pO2 ABG pO2 ABG HCO3 ABG Base Excess ABG Hemoglobin Oxyhemoglobin Sodium Potassium Chloride Carbon Dioxide BUN Creatinine Glucose POC Glucose 168 H 110 H Lactic Acid Calcium Ionized Calcium Phosphorus Magnesium Direct Bilirubin AST ALT Alkaline Phosphatase Lactate Dehydrogenase Troponin T C-Reactive Protein Total Protein Albumin Prealbumin Triglycerides Cholesterol LDL Cholesterol Direct HDL Cholesterol 25-OH Vitamin D Total PTH Intact Urine pH Urine WBC (Auto) Urine Creatinine Urine Total Protein Fluid Total Protein Vancomycin Trough Rheumatoid Factor Complement C4 Miscellaneous Test Crossmatch 01/13/17 01/14/17 01/14/17 23:42 05:24 05:30 WBC RBC Hgb Hct MCV MCH MCHC RDW Plt Count Lymph % (Auto) [place] % (Auto) Lymph # [place] # Baso # Seg Neutrophils % Seg Neuts % (Manual) Lymphocytes % (Manual) Monocytes % (Manual) Eosinophils % (Manual) Basophils % (Manual) Nucleated RBC % Seg Neutrophils # Seg Neutrophils # Man Lymphocytes # (Manual) Monocytes # (Manual) Eosinophils # (Manual) Basophils # (Manual) PT INR Fibrinogen dRVVT Confirm Interp Factor V Activity POC ABG pH POC ABG pCO2 POC ABG pO2 ABG pO2 ABG HCO3 ABG Base Excess ABG Hemoglobin Oxyhemoglobin Sodium Potassium Chloride Carbon Dioxide BUN 58 H Creatinine Glucose 114 H POC Glucose 155 H 121 H Lactic Acid Calcium Ionized Calcium Phosphorus Magnesium Direct Bilirubin AST ALT Alkaline Phosphatase Lactate Dehydrogenase Troponin T C-Reactive Protein Total Protein Albumin Prealbumin Triglycerides Cholesterol LDL Cholesterol Direct HDL Cholesterol 25-OH Vitamin D Total PTH Intact Urine pH Urine WBC (Auto) Urine Creatinine Urine Total Protein Fluid Total Protein Vancomycin Trough Rheumatoid Factor Complement C4 Miscellaneous Test Crossmatch 01/14/17 01/14/17 01/15/17 12:48 17:36 00:15 WBC RBC Hgb Hct MCV MCH MCHC RDW Plt Count Lymph % (Auto) [place] % (Auto) Lymph # [place] # Baso # Seg Neutrophils % Seg Neuts % (Manual) Lymphocytes % (Manual) Monocytes % (Manual) Eosinophils % (Manual) Basophils % (Manual) Nucleated RBC % Seg Neutrophils # Seg Neutrophils # Man Lymphocytes # (Manual) Monocytes # (Manual) Eosinophils # (Manual) Basophils # (Manual) PT INR Fibrinogen dRVVT Confirm Interp Factor V Activity POC ABG pH POC ABG pCO2 POC ABG pO2 ABG pO2 ABG HCO3 ABG Base Excess ABG Hemoglobin Oxyhemoglobin Sodium Potassium Chloride Carbon Dioxide BUN Creatinine Glucose POC Glucose 130 H 135 H 132 H Lactic Acid Calcium Ionized Calcium Phosphorus Magnesium Direct Bilirubin AST ALT Alkaline Phosphatase Lactate Dehydrogenase Troponin T C-Reactive Protein Total Protein Albumin Prealbumin Triglycerides Cholesterol LDL Cholesterol Direct HDL Cholesterol 25-OH Vitamin D Total PTH Intact Urine pH Urine WBC (Auto) Urine Creatinine Urine Total Protein Fluid Total Protein Vancomycin Trough Rheumatoid Factor Complement C4 Miscellaneous Test Crossmatch 01/15/17 01/15/17 01/15/17 05:01 11:55 12:45 WBC 16.2 H RBC 3.00 L Hgb 8.1 L Hct 25.4 L MCV MCH 27 L MCHC RDW 17.6 H Plt Count Lymph % (Auto) 11.7 L [place] % (Auto) 7.8 H Lymph # [place] # 1.3 H Baso # Seg Neutrophils % 80.1 H Seg Neuts % (Manual) Lymphocytes % (Manual) Monocytes % (Manual) Eosinophils % (Manual) Basophils % (Manual) Nucleated RBC % Seg Neutrophils # 13.0 H Seg Neutrophils # Man Lymphocytes # (Manual) Monocytes # (Manual) Eosinophils # (Manual) Basophils # (Manual) PT INR Fibrinogen dRVVT Confirm Interp Factor V Activity POC ABG pH POC ABG pCO2 POC ABG pO2 ABG pO2 ABG HCO3 ABG Base Excess ABG Hemoglobin Oxyhemoglobin Sodium Potassium Chloride Carbon Dioxide BUN Creatinine Glucose POC Glucose 126 H 125 H Lactic Acid Calcium Ionized Calcium Phosphorus Magnesium Direct Bilirubin AST ALT Alkaline Phosphatase Lactate Dehydrogenase Troponin T C-Reactive Protein Total Protein Albumin Prealbumin Triglycerides Cholesterol LDL Cholesterol Direct HDL Cholesterol 25-OH Vitamin D Total PTH Intact Urine pH Urine WBC (Auto) Urine Creatinine Urine Total Protein Fluid Total Protein Vancomycin Trough Rheumatoid Factor Complement C4 Miscellaneous Test Crossmatch 01/15/17 01/15/17 01/15/17 12:45 17:31 23:39 WBC RBC Hgb Hct MCV MCH MCHC RDW Plt Count Lymph % (Auto) [place] % (Auto) Lymph # [place] # Baso # Seg Neutrophils % Seg Neuts % (Manual) Lymphocytes % (Manual) Monocytes % (Manual) Eosinophils % (Manual) Basophils % (Manual) Nucleated RBC % Seg Neutrophils # Seg Neutrophils # Man Lymphocytes # (Manual) Monocytes # (Manual) Eosinophils # (Manual) Basophils # (Manual) PT INR Fibrinogen dRVVT Confirm Interp Factor V Activity POC ABG pH POC ABG pCO2 POC ABG pO2 ABG pO2 ABG HCO3 ABG Base Excess ABG Hemoglobin Oxyhemoglobin Sodium 136 L Potassium Chloride Carbon Dioxide BUN 87 H Creatinine 1.7 H Glucose 108 H POC Glucose 129 H 112 H Lactic Acid Calcium Ionized Calcium Phosphorus Magnesium Direct Bilirubin AST ALT Alkaline Phosphatase Lactate Dehydrogenase Troponin T C-Reactive Protein Total Protein Albumin Prealbumin Triglycerides Cholesterol LDL Cholesterol Direct HDL Cholesterol 25-OH Vitamin D Total PTH Intact Urine pH Urine WBC (Auto) Urine Creatinine Urine Total Protein Fluid Total Protein Vancomycin Trough Rheumatoid Factor Complement C4 Miscellaneous Test Crossmatch 01/16/17 01/16/17 01/16/17 05:23 11:42 12:32 WBC RBC Hgb Hct MCV MCH MCHC RDW Plt Count Lymph % (Auto) [place] % (Auto) Lymph # [place] # Baso # Seg Neutrophils % Seg Neuts % (Manual) Lymphocytes % (Manual) Monocytes % (Manual) Eosinophils % (Manual) Basophils % (Manual) Nucleated RBC % Seg Neutrophils # Seg Neutrophils # Man Lymphocytes # (Manual) Monocytes # (Manual) Eosinophils # (Manual) Basophils # (Manual) PT INR Fibrinogen dRVVT Confirm Interp Factor V Activity POC ABG pH 7.499 H POC ABG pCO2 30.9 L POC ABG pO2 51 L ABG pO2 ABG HCO3 ABG Base Excess ABG Hemoglobin Oxyhemoglobin Sodium Potassium Chloride Carbon Dioxide BUN Creatinine Glucose POC Glucose 118 H 133 H Lactic Acid Calcium Ionized Calcium Phosphorus Magnesium Direct Bilirubin AST ALT Alkaline Phosphatase Lactate Dehydrogenase Troponin T C-Reactive Protein Total Protein Albumin Prealbumin Triglycerides Cholesterol LDL Cholesterol Direct HDL Cholesterol 25-OH Vitamin D Total PTH Intact Urine pH Urine WBC (Auto) Urine Creatinine Urine Total Protein Fluid Total Protein Vancomycin Trough Rheumatoid Factor Complement C4 Miscellaneous Test Crossmatch 01/16/17 01/16/17 01/16/17 17:52 23:57 Unknown WBC RBC Hgb Hct MCV MCH MCHC RDW Plt Count Lymph % (Auto) [place] % (Auto) Lymph # [place] # Baso # Seg Neutrophils % Seg Neuts % (Manual) Lymphocytes % (Manual) Monocytes % (Manual) Eosinophils % (Manual) Basophils % (Manual) Nucleated RBC % Seg Neutrophils # Seg Neutrophils # Man Lymphocytes # (Manual) Monocytes # (Manual) Eosinophils # (Manual) Basophils # (Manual) PT INR Fibrinogen dRVVT Confirm Interp Factor V Activity POC ABG pH POC ABG pCO2 POC ABG pO2 ABG pO2 ABG HCO3 ABG Base Excess ABG Hemoglobin Oxyhemoglobin Sodium 135 L Potassium Chloride Carbon Dioxide BUN 101 H Creatinine 1.8 H Glucose 117 H POC Glucose 130 H 143 H Lactic Acid Calcium Ionized Calcium Phosphorus 5.80 H Magnesium Direct Bilirubin AST ALT Alkaline Phosphatase Lactate Dehydrogenase Troponin T C-Reactive Protein Total Protein Albumin Prealbumin Triglycerides Cholesterol LDL Cholesterol Direct HDL Cholesterol 25-OH Vitamin D Total PTH Intact Urine pH Urine WBC (Auto) Urine Creatinine Urine Total Protein Fluid Total Protein Vancomycin Trough Rheumatoid Factor Complement C4 Miscellaneous Test Crossmatch 01/17/17 01/17/17 01/17/17 05:30 05:46 11:49 WBC RBC Hgb Hct MCV MCH MCHC RDW Plt Count Lymph % (Auto) [place] % (Auto) Lymph # [place] # Baso # Seg Neutrophils % Seg Neuts % (Manual) Lymphocytes % (Manual) Monocytes % (Manual) Eosinophils % (Manual) Basophils % (Manual) Nucleated RBC % Seg Neutrophils # Seg Neutrophils # Man Lymphocytes # (Manual) Monocytes # (Manual) Eosinophils # (Manual) Basophils # (Manual) PT INR Fibrinogen dRVVT Confirm Interp Factor V Activity POC ABG pH POC ABG pCO2 POC ABG pO2 ABG pO2 ABG HCO3 ABG Base Excess ABG Hemoglobin Oxyhemoglobin Sodium 134 L Potassium Chloride 95.8 L Carbon Dioxide BUN 66 H Creatinine 1.3 H Glucose 138 H POC Glucose 147 H 124 H Lactic Acid Calcium Ionized Calcium Phosphorus Magnesium Direct Bilirubin AST ALT Alkaline Phosphatase 254 H Lactate Dehydrogenase Troponin T C-Reactive Protein Total Protein Albumin 1.3 L Prealbumin Triglycerides Cholesterol LDL Cholesterol Direct HDL Cholesterol 25-OH Vitamin D Total PTH Intact Urine pH Urine WBC (Auto) Urine Creatinine Urine Total Protein Fluid Total Protein Vancomycin Trough Rheumatoid Factor Complement C4 Miscellaneous Test Crossmatch 01/17/17 01/17/17 01/18/17 17:30 23:41 05:15 WBC RBC Hgb Hct MCV MCH MCHC RDW Plt Count Lymph % (Auto) [place] % (Auto) Lymph # [place] # Baso # Seg Neutrophils % Seg Neuts % (Manual) Lymphocytes % (Manual) Monocytes % (Manual) Eosinophils % (Manual) Basophils % (Manual) Nucleated RBC % Seg Neutrophils # Seg Neutrophils # Man Lymphocytes # (Manual) Monocytes # (Manual) Eosinophils # (Manual) Basophils # (Manual) PT INR Fibrinogen dRVVT Confirm Interp Factor V Activity POC ABG pH POC ABG pCO2 POC ABG pO2 ABG pO2 ABG HCO3 ABG Base Excess ABG Hemoglobin Oxyhemoglobin Sodium Potassium Chloride Carbon Dioxide BUN 89 H Creatinine 1.7 H Glucose 118 H POC Glucose 137 H 119 H Lactic Acid Calcium Ionized Calcium Phosphorus Magnesium Direct Bilirubin AST ALT Alkaline Phosphatase Lactate Dehydrogenase Troponin T C-Reactive Protein Total Protein Albumin Prealbumin Triglycerides Cholesterol LDL Cholesterol Direct HDL Cholesterol 25-OH Vitamin D Total PTH Intact Urine pH Urine WBC (Auto) Urine Creatinine Urine Total Protein Fluid Total Protein Vancomycin Trough Rheumatoid Factor Complement C4 Miscellaneous Test Crossmatch 01/18/17 01/18/17 01/18/17 05:19 12:16 18:11 WBC RBC Hgb Hct MCV MCH MCHC RDW Plt Count Lymph % (Auto) [place] % (Auto) Lymph # [place] # Baso # Seg Neutrophils % Seg Neuts % (Manual) Lymphocytes % (Manual) Monocytes % (Manual) Eosinophils % (Manual) Basophils % (Manual) Nucleated RBC % Seg Neutrophils # Seg Neutrophils # Man Lymphocytes # (Manual) Monocytes # (Manual) Eosinophils # (Manual) Basophils # (Manual) PT INR Fibrinogen dRVVT Confirm Interp Factor V Activity POC ABG pH POC ABG pCO2 POC ABG pO2 ABG pO2 ABG HCO3 ABG Base Excess ABG Hemoglobin Oxyhemoglobin Sodium Potassium Chloride Carbon Dioxide BUN Creatinine Glucose POC Glucose 134 H 188 H 113 H Lactic Acid Calcium Ionized Calcium Phosphorus Magnesium Direct Bilirubin AST ALT Alkaline Phosphatase Lactate Dehydrogenase Troponin T C-Reactive Protein Total Protein Albumin Prealbumin Triglycerides Cholesterol LDL Cholesterol Direct HDL Cholesterol 25-OH Vitamin D Total PTH Intact Urine pH Urine WBC (Auto) Urine Creatinine Urine Total Protein Fluid Total Protein Vancomycin Trough Rheumatoid Factor Complement C4 Miscellaneous Test Crossmatch 01/19/17 01/19/17 01/19/17 00:00 05:30 05:36 WBC RBC Hgb Hct MCV MCH MCHC RDW Plt Count Lymph % (Auto) [place] % (Auto) Lymph # [place] # Baso # Seg Neutrophils % Seg Neuts % (Manual) Lymphocytes % (Manual) Monocytes % (Manual) Eosinophils % (Manual) Basophils % (Manual) Nucleated RBC % Seg Neutrophils # Seg Neutrophils # Man Lymphocytes # (Manual) Monocytes # (Manual) Eosinophils # (Manual) Basophils # (Manual) PT INR Fibrinogen dRVVT Confirm Interp Factor V Activity POC ABG pH POC ABG pCO2 POC ABG pO2 ABG pO2 ABG HCO3 ABG Base Excess ABG Hemoglobin Oxyhemoglobin Sodium Potassium Chloride Carbon Dioxide BUN 70 H Creatinine 1.5 H Glucose 121 H POC Glucose 137 H 155 H Lactic Acid Calcium Ionized Calcium Phosphorus 2.10 L D Magnesium Direct Bilirubin AST ALT Alkaline Phosphatase Lactate Dehydrogenase Troponin T C-Reactive Protein Total Protein Albumin Prealbumin Triglycerides Cholesterol LDL Cholesterol Direct HDL Cholesterol 25-OH Vitamin D Total PTH Intact Urine pH Urine WBC (Auto) Urine Creatinine Urine Total Protein Fluid Total Protein Vancomycin Trough Rheumatoid Factor Complement C4 Miscellaneous Test Crossmatch 01/19/17 01/19/17 01/19/17 11:59 15:32 17:57 WBC RBC Hgb Hct MCV MCH MCHC RDW Plt Count Lymph % (Auto) [place] % (Auto) Lymph # [place] # Baso # Seg Neutrophils % Seg Neuts % (Manual) Lymphocytes % (Manual) Monocytes % (Manual) Eosinophils % (Manual) Basophils % (Manual) Nucleated RBC % Seg Neutrophils # Seg Neutrophils # Man Lymphocytes # (Manual) Monocytes # (Manual) Eosinophils # (Manual) Basophils # (Manual) PT INR Fibrinogen dRVVT Confirm Interp Factor V Activity POC ABG pH POC ABG pCO2 33.1 L POC ABG pO2 76 L ABG pO2 ABG HCO3 ABG Base Excess ABG Hemoglobin Oxyhemoglobin Sodium Potassium Chloride Carbon Dioxide BUN Creatinine Glucose POC Glucose 156 H 129 H Lactic Acid Calcium Ionized Calcium Phosphorus Magnesium Direct Bilirubin AST ALT Alkaline Phosphatase Lactate Dehydrogenase Troponin T C-Reactive Protein Total Protein Albumin Prealbumin Triglycerides Cholesterol LDL Cholesterol Direct HDL Cholesterol 25-OH Vitamin D Total PTH Intact Urine pH Urine WBC (Auto) Urine Creatinine Urine Total Protein Fluid Total Protein Vancomycin Trough Rheumatoid Factor Complement C4 Miscellaneous Test Crossmatch 01/19/17 01/20/17 01/20/17 23:49 04:00 05:21 WBC RBC Hgb Hct MCV MCH MCHC RDW Plt Count Lymph % (Auto) [place] % (Auto) Lymph # [place] # Baso # Seg Neutrophils % Seg Neuts % (Manual) Lymphocytes % (Manual) Monocytes % (Manual) Eosinophils % (Manual) Basophils % (Manual) Nucleated RBC % Seg Neutrophils # Seg Neutrophils # Man Lymphocytes # (Manual) Monocytes # (Manual) Eosinophils # (Manual) Basophils # (Manual) PT INR Fibrinogen dRVVT Confirm Interp Factor V Activity POC ABG pH POC ABG pCO2 POC ABG pO2 ABG pO2 ABG HCO3 ABG Base Excess ABG Hemoglobin Oxyhemoglobin Sodium Potassium Chloride Carbon Dioxide BUN 96 H Creatinine 1.9 H Glucose 106 H POC Glucose 125 H 130 H Lactic Acid Calcium Ionized Calcium Phosphorus 2.40 L Magnesium Direct Bilirubin AST ALT Alkaline Phosphatase Lactate Dehydrogenase Troponin T C-Reactive Protein Total Protein Albumin Prealbumin Triglycerides Cholesterol LDL Cholesterol Direct HDL Cholesterol 25-OH Vitamin D Total PTH Intact Urine pH Urine WBC (Auto) Urine Creatinine Urine Total Protein Fluid Total Protein Vancomycin Trough Rheumatoid Factor Complement C4 Miscellaneous Test Crossmatch 01/20/17 01/20/17 01/20/17 11:58 12:17 17:26 WBC RBC Hgb Hct MCV MCH MCHC RDW Plt Count Lymph % (Auto) [place] % (Auto) Lymph # [place] # Baso # Seg Neutrophils % Seg Neuts % (Manual) Lymphocytes % (Manual) Monocytes % (Manual) Eosinophils % (Manual) Basophils % (Manual) Nucleated RBC % Seg Neutrophils # Seg Neutrophils # Man Lymphocytes # (Manual) Monocytes # (Manual) Eosinophils # (Manual) Basophils # (Manual) PT INR Fibrinogen dRVVT Confirm Interp Factor V Activity POC ABG pH POC ABG pCO2 POC ABG pO2 70 L ABG pO2 ABG HCO3 ABG Base Excess ABG Hemoglobin Oxyhemoglobin Sodium Potassium Chloride Carbon Dioxide BUN Creatinine Glucose POC Glucose 118 H 154 H Lactic Acid Calcium Ionized Calcium Phosphorus Magnesium Direct Bilirubin AST ALT Alkaline Phosphatase Lactate Dehydrogenase Troponin T C-Reactive Protein Total Protein Albumin Prealbumin Triglycerides Cholesterol LDL Cholesterol Direct HDL Cholesterol 25-OH Vitamin D Total PTH Intact Urine pH Urine WBC (Auto) Urine Creatinine Urine Total Protein Fluid Total Protein Vancomycin Trough Rheumatoid Factor Complement C4 Miscellaneous Test Crossmatch 01/21/17 01/21/17 01/21/17 04:00 04:56 11:46 WBC RBC Hgb Hct MCV MCH MCHC RDW Plt Count Lymph % (Auto) [place] % (Auto) Lymph # [place] # Baso # Seg Neutrophils % Seg Neuts % (Manual) Lymphocytes % (Manual) Monocytes % (Manual) Eosinophils % (Manual) Basophils % (Manual) Nucleated RBC % Seg Neutrophils # Seg Neutrophils # Man Lymphocytes # (Manual) Monocytes # (Manual) Eosinophils # (Manual) Basophils # (Manual) PT INR Fibrinogen dRVVT Confirm Interp Factor V Activity POC ABG pH POC ABG pCO2 POC ABG pO2 ABG pO2 ABG HCO3 ABG Base Excess ABG Hemoglobin Oxyhemoglobin Sodium Potassium 3.5 L Chloride 97.4 L Carbon Dioxide BUN 66 H Creatinine 1.4 H Glucose POC Glucose 116 H 106 H Lactic Acid Calcium Ionized Calcium Phosphorus 2.10 L Magnesium Direct Bilirubin AST ALT Alkaline Phosphatase Lactate Dehydrogenase Troponin T C-Reactive Protein Total Protein Albumin Prealbumin Triglycerides Cholesterol LDL Cholesterol Direct HDL Cholesterol 25-OH Vitamin D Total PTH Intact Urine pH Urine WBC (Auto) Urine Creatinine Urine Total Protein Fluid Total Protein Vancomycin Trough Rheumatoid Factor Complement C4 Miscellaneous Test Crossmatch 01/21/17 01/21/17 01/22/17 17:25 23:49 05:35 WBC RBC Hgb Hct MCV MCH MCHC RDW Plt Count Lymph % (Auto) [place] % (Auto) Lymph # [place] # Baso # Seg Neutrophils % Seg Neuts % (Manual) Lymphocytes % (Manual) Monocytes % (Manual) Eosinophils % (Manual) Basophils % (Manual) Nucleated RBC % Seg Neutrophils # Seg Neutrophils # Man Lymphocytes # (Manual) Monocytes # (Manual) Eosinophils # (Manual) Basophils # (Manual) PT INR Fibrinogen dRVVT Confirm Interp Factor V Activity POC ABG pH POC ABG pCO2 POC ABG pO2 ABG pO2 ABG HCO3 ABG Base Excess ABG Hemoglobin Oxyhemoglobin Sodium Potassium Chloride Carbon Dioxide BUN Creatinine Glucose POC Glucose 106 H 133 H 107 H Lactic Acid Calcium Ionized Calcium Phosphorus Magnesium Direct Bilirubin AST ALT Alkaline Phosphatase Lactate Dehydrogenase Troponin T C-Reactive Protein Total Protein Albumin Prealbumin Triglycerides Cholesterol LDL Cholesterol Direct HDL Cholesterol 25-OH Vitamin D Total PTH Intact Urine pH Urine WBC (Auto) Urine Creatinine Urine Total Protein Fluid Total Protein Vancomycin Trough Rheumatoid Factor Complement C4 Miscellaneous Test Crossmatch 01/22/17 01/22/17 01/22/17 07:20 07:20 11:31 WBC RBC 2.75 L Hgb 7.5 L Hct 22.7 L MCV MCH 27 L MCHC RDW 17.5 H Plt Count Lymph % (Auto) [place] % (Auto) Lymph # [place] # Baso # Seg Neutrophils % Seg Neuts % (Manual) Lymphocytes % (Manual) Monocytes % (Manual) Eosinophils % (Manual) Basophils % (Manual) Nucleated RBC % Seg Neutrophils # Seg Neutrophils # Man Lymphocytes # (Manual) Monocytes # (Manual) Eosinophils # (Manual) Basophils # (Manual) PT INR Fibrinogen dRVVT Confirm Interp Factor V Activity POC ABG pH POC ABG pCO2 POC ABG pO2 ABG pO2 ABG HCO3 ABG Base Excess ABG Hemoglobin Oxyhemoglobin Sodium Potassium 3.3 L Chloride Carbon Dioxide BUN 42 H Creatinine Glucose 105 H POC Glucose 124 H Lactic Acid Calcium Ionized Calcium Phosphorus 1.70 L Magnesium Direct Bilirubin AST ALT Alkaline Phosphatase Lactate Dehydrogenase Troponin T C-Reactive Protein Total Protein Albumin Prealbumin Triglycerides Cholesterol LDL Cholesterol Direct HDL Cholesterol 25-OH Vitamin D Total PTH Intact Urine pH Urine WBC (Auto) Urine Creatinine Urine Total Protein Fluid Total Protein Vancomycin Trough Rheumatoid Factor Complement C4 Miscellaneous Test Crossmatch 01/22/17 01/22/17 01/23/17 17:16 23:35 05:35 WBC RBC Hgb Hct MCV MCH MCHC RDW Plt Count Lymph % (Auto) [place] % (Auto) Lymph # [place] # Baso # Seg Neutrophils % Seg Neuts % (Manual) Lymphocytes % (Manual) Monocytes % (Manual) Eosinophils % (Manual) Basophils % (Manual) Nucleated RBC % Seg Neutrophils # Seg Neutrophils # Man Lymphocytes # (Manual) Monocytes # (Manual) Eosinophils # (Manual) Basophils # (Manual) PT INR Fibrinogen dRVVT Confirm Interp Factor V Activity POC ABG pH POC ABG pCO2 POC ABG pO2 ABG pO2 ABG HCO3 ABG Base Excess ABG Hemoglobin Oxyhemoglobin Sodium Potassium Chloride Carbon Dioxide BUN Creatinine Glucose POC Glucose 135 H 120 H 111 H Lactic Acid Calcium Ionized Calcium Phosphorus Magnesium Direct Bilirubin AST ALT Alkaline Phosphatase Lactate Dehydrogenase Troponin T C-Reactive Protein Total Protein Albumin Prealbumin Triglycerides Cholesterol LDL Cholesterol Direct HDL Cholesterol 25-OH Vitamin D Total PTH Intact Urine pH Urine WBC (Auto) Urine Creatinine Urine Total Protein Fluid Total Protein Vancomycin Trough Rheumatoid Factor Complement C4 Miscellaneous Test Crossmatch 01/23/17 01/23/17 01/23/17 06:10 17:27 23:44 WBC RBC Hgb Hct MCV MCH MCHC RDW Plt Count Lymph % (Auto) [place] % (Auto) Lymph # [place] # Baso # Seg Neutrophils % Seg Neuts % (Manual) Lymphocytes % (Manual) Monocytes % (Manual) Eosinophils % (Manual) Basophils % (Manual) Nucleated RBC % Seg Neutrophils # Seg Neutrophils # Man Lymphocytes # (Manual) Monocytes # (Manual) Eosinophils # (Manual) Basophils # (Manual) PT INR Fibrinogen dRVVT Confirm Interp Factor V Activity POC ABG pH POC ABG pCO2 POC ABG pO2 ABG pO2 ABG HCO3 ABG Base Excess ABG Hemoglobin Oxyhemoglobin Sodium Potassium 3.3 L Chloride Carbon Dioxide BUN 66 H Creatinine 1.3 H Glucose 109 H POC Glucose 120 H 115 H Lactic Acid Calcium Ionized Calcium Phosphorus 2.20 L D Magnesium Direct Bilirubin AST ALT Alkaline Phosphatase Lactate Dehydrogenase Troponin T C-Reactive Protein Total Protein Albumin Prealbumin Triglycerides Cholesterol LDL Cholesterol Direct HDL Cholesterol 25-OH Vitamin D Total PTH Intact Urine pH Urine WBC (Auto) Urine Creatinine Urine Total Protein Fluid Total Protein Vancomycin Trough Rheumatoid Factor Complement C4 Miscellaneous Test Crossmatch 01/24/17 01/24/17 01/24/17 05:19 05:50 12:19 WBC RBC Hgb Hct MCV MCH MCHC RDW Plt Count Lymph % (Auto) [place] % (Auto) Lymph # [place] # Baso # Seg Neutrophils % Seg Neuts % (Manual) Lymphocytes % (Manual) Monocytes % (Manual) Eosinophils % (Manual) Basophils % (Manual) Nucleated RBC % Seg Neutrophils # Seg Neutrophils # Man Lymphocytes # (Manual) Monocytes # (Manual) Eosinophils # (Manual) Basophils # (Manual) PT INR Fibrinogen dRVVT Confirm Interp Factor V Activity POC ABG pH POC ABG pCO2 POC ABG pO2 ABG pO2 ABG HCO3 ABG Base Excess ABG Hemoglobin Oxyhemoglobin Sodium Potassium Chloride Carbon Dioxide BUN 47 H Creatinine Glucose 117 H POC Glucose 126 H 119 H Lactic Acid Calcium Ionized Calcium Phosphorus 2.30 L Magnesium 1.60 L Direct Bilirubin AST ALT Alkaline Phosphatase Lactate Dehydrogenase Troponin T C-Reactive Protein Total Protein Albumin Prealbumin Triglycerides Cholesterol LDL Cholesterol Direct HDL Cholesterol 25-OH Vitamin D Total PTH Intact Urine pH Urine WBC (Auto) Urine Creatinine Urine Total Protein Fluid Total Protein Vancomycin Trough Rheumatoid Factor Complement C4 Miscellaneous Test Crossmatch 01/24/17 01/25/17 01/25/17 17:08 00:37 04:00 WBC RBC Hgb Hct MCV MCH MCHC RDW Plt Count Lymph % (Auto) [place] % (Auto) Lymph # [place] # Baso # Seg Neutrophils % Seg Neuts % (Manual) Lymphocytes % (Manual) Monocytes % (Manual) Eosinophils % (Manual) Basophils % (Manual) Nucleated RBC % Seg Neutrophils # Seg Neutrophils # Man Lymphocytes # (Manual) Monocytes # (Manual) Eosinophils # (Manual) Basophils # (Manual) PT INR Fibrinogen dRVVT Confirm Interp Factor V Activity POC ABG pH POC ABG pCO2 POC ABG pO2 ABG pO2 ABG HCO3 ABG Base Excess ABG Hemoglobin Oxyhemoglobin Sodium Potassium Chloride Carbon Dioxide BUN 72 H Creatinine 1.3 H Glucose POC Glucose 127 H 110 H Lactic Acid Calcium Ionized Calcium Phosphorus Magnesium Direct Bilirubin AST ALT Alkaline Phosphatase Lactate Dehydrogenase Troponin T C-Reactive Protein Total Protein Albumin Prealbumin Triglycerides Cholesterol LDL Cholesterol Direct HDL Cholesterol 25-OH Vitamin D Total PTH Intact Urine pH Urine WBC (Auto) Urine Creatinine Urine Total Protein Fluid Total Protein Vancomycin Trough Rheumatoid Factor Complement C4 Miscellaneous Test Crossmatch 01/25/17 01/25/17 01/25/17 04:00 11:15 13:05 WBC RBC 2.49 L Hgb 6.7 L Hct 20.9 L MCV MCH 27 L MCHC RDW 18.8 H Plt Count Lymph % (Auto) [place] % (Auto) 10.1 H Lymph # [place] # 1.0 H Baso # Seg Neutrophils % Seg Neuts % (Manual) Lymphocytes % (Manual) Monocytes % (Manual) Eosinophils % (Manual) Basophils % (Manual) Nucleated RBC % Seg Neutrophils # Seg Neutrophils # Man Lymphocytes # (Manual) Monocytes # (Manual) Eosinophils # (Manual) Basophils # (Manual) PT INR Fibrinogen dRVVT Confirm Interp Factor V Activity POC ABG pH POC ABG pCO2 POC ABG pO2 ABG pO2 ABG HCO3 ABG Base Excess ABG Hemoglobin Oxyhemoglobin Sodium Potassium Chloride Carbon Dioxide BUN Creatinine Glucose POC Glucose 128 H Lactic Acid Calcium Ionized Calcium Phosphorus Magnesium Direct Bilirubin AST ALT Alkaline Phosphatase Lactate Dehydrogenase Troponin T C-Reactive Protein Total Protein Albumin Prealbumin Triglycerides Cholesterol LDL Cholesterol Direct HDL Cholesterol 25-OH Vitamin D Total PTH Intact Urine pH Urine WBC (Auto) Urine Creatinine Urine Total Protein Fluid Total Protein Vancomycin Trough Rheumatoid Factor Complement C4 Miscellaneous Test Crossmatch See Detail 01/25/17 01/25/17 01/26/17 18:02 23:07 01:20 WBC RBC Hgb Hct MCV MCH MCHC RDW Plt Count Lymph % (Auto) [place] % (Auto) Lymph # [place] # Baso # Seg Neutrophils % Seg Neuts % (Manual) Lymphocytes % (Manual) Monocytes % (Manual) Eosinophils % (Manual) Basophils % (Manual) Nucleated RBC % Seg Neutrophils # Seg Neutrophils # Man Lymphocytes # (Manual) Monocytes # (Manual) Eosinophils # (Manual) Basophils # (Manual) PT INR Fibrinogen dRVVT Confirm Interp Factor V Activity POC ABG pH POC ABG pCO2 POC ABG pO2 ABG pO2 ABG HCO3 ABG Base Excess ABG Hemoglobin Oxyhemoglobin Sodium Potassium Chloride Carbon Dioxide BUN Creatinine Glucose POC Glucose 120 H 123 H 112 H Lactic Acid Calcium Ionized Calcium Phosphorus Magnesium Direct Bilirubin AST ALT Alkaline Phosphatase Lactate Dehydrogenase Troponin T C-Reactive Protein Total Protein Albumin Prealbumin Triglycerides Cholesterol LDL Cholesterol Direct HDL Cholesterol 25-OH Vitamin D Total PTH Intact Urine pH Urine WBC (Auto) Urine Creatinine Urine Total Protein Fluid Total Protein Vancomycin Trough Rheumatoid Factor Complement C4 Miscellaneous Test Crossmatch 01/26/17 01/26/17 01/26/17 04:20 04:20 11:23 WBC 13.1 H RBC 3.28 L Hgb 9.0 L Hct 26.9 L D MCV MCH 27 L MCHC RDW 17.2 H Plt Count Lymph % (Auto) [place] % (Auto) 9.0 H Lymph # [place] # 1.2 H Baso # Seg Neutrophils % 73.1 H Seg Neuts % (Manual) Lymphocytes % (Manual) Monocytes % (Manual) Eosinophils % (Manual) Basophils % (Manual) Nucleated RBC % Seg Neutrophils # 9.6 H Seg Neutrophils # Man Lymphocytes # (Manual) Monocytes # (Manual) Eosinophils # (Manual) Basophils # (Manual) PT INR Fibrinogen dRVVT Confirm Interp Factor V Activity POC ABG pH POC ABG pCO2 POC ABG pO2 ABG pO2 ABG HCO3 ABG Base Excess ABG Hemoglobin Oxyhemoglobin Sodium Potassium Chloride Carbon Dioxide BUN 51 H Creatinine Glucose 117 H POC Glucose 125 H Lactic Acid Calcium Ionized Calcium Phosphorus Magnesium Direct Bilirubin AST ALT Alkaline Phosphatase Lactate Dehydrogenase Troponin T C-Reactive Protein Total Protein Albumin Prealbumin Triglycerides Cholesterol LDL Cholesterol Direct HDL Cholesterol 25-OH Vitamin D Total PTH Intact Urine pH Urine WBC (Auto) Urine Creatinine Urine Total Protein Fluid Total Protein Vancomycin Trough Rheumatoid Factor Complement C4 Miscellaneous Test Crossmatch 01/26/17 01/27/17 01/27/17 17:11 00:30 04:00 WBC RBC Hgb Hct MCV MCH MCHC RDW Plt Count Lymph % (Auto) [place] % (Auto) Lymph # [place] # Baso # Seg Neutrophils % Seg Neuts % (Manual) Lymphocytes % (Manual) Monocytes % (Manual) Eosinophils % (Manual) Basophils % (Manual) Nucleated RBC % Seg Neutrophils # Seg Neutrophils # Man Lymphocytes # (Manual) Monocytes # (Manual) Eosinophils # (Manual) Basophils # (Manual) PT INR Fibrinogen dRVVT Confirm Interp Factor V Activity POC ABG pH POC ABG pCO2 POC ABG pO2 ABG pO2 ABG HCO3 ABG Base Excess ABG Hemoglobin Oxyhemoglobin Sodium Potassium Chloride 97.7 L Carbon Dioxide 21 L BUN 79 H Creatinine 1.7 H D Glucose 112 H POC Glucose 133 H 135 H Lactic Acid Calcium Ionized Calcium Phosphorus 5.00 H D Magnesium Direct Bilirubin AST ALT Alkaline Phosphatase Lactate Dehydrogenase Troponin T C-Reactive Protein Total Protein Albumin Prealbumin Triglycerides Cholesterol LDL Cholesterol Direct HDL Cholesterol 25-OH Vitamin D Total PTH Intact Urine pH Urine WBC (Auto) Urine Creatinine Urine Total Protein Fluid Total Protein Vancomycin Trough Rheumatoid Factor Complement C4 Miscellaneous Test Crossmatch 01/27/17 01/27/17 01/27/17 05:12 12:18 17:25 WBC RBC Hgb Hct MCV MCH MCHC RDW Plt Count Lymph % (Auto) [place] % (Auto) Lymph # [place] # Baso # Seg Neutrophils % Seg Neuts % (Manual) Lymphocytes % (Manual) Monocytes % (Manual) Eosinophils % (Manual) Basophils % (Manual) Nucleated RBC % Seg Neutrophils # Seg Neutrophils # Man Lymphocytes # (Manual) Monocytes # (Manual) Eosinophils # (Manual) Basophils # (Manual) PT INR Fibrinogen dRVVT Confirm Interp Factor V Activity POC ABG pH POC ABG pCO2 POC ABG pO2 ABG pO2 ABG HCO3 ABG Base Excess ABG Hemoglobin Oxyhemoglobin Sodium Potassium Chloride Carbon Dioxide BUN Creatinine Glucose POC Glucose 116 H 153 H 152 H Lactic Acid Calcium Ionized Calcium Phosphorus Magnesium Direct Bilirubin AST ALT Alkaline Phosphatase Lactate Dehydrogenase Troponin T C-Reactive Protein Total Protein Albumin Prealbumin Triglycerides Cholesterol LDL Cholesterol Direct HDL Cholesterol 25-OH Vitamin D Total PTH Intact Urine pH Urine WBC (Auto) Urine Creatinine Urine Total Protein Fluid Total Protein Vancomycin Trough Rheumatoid Factor Complement C4 Miscellaneous Test Crossmatch 01/27/17 01/28/17 01/28/17 23:42 04:00 04:00 WBC 14.4 H RBC 2.82 L Hgb 7.4 L Hct 23.5 L MCV MCH 26 L MCHC RDW 17.6 H Plt Count Lymph % (Auto) 10.2 L [place] % (Auto) 11.0 H Lymph # [place] # 1.6 H Baso # Seg Neutrophils % 78.0 H Seg Neuts % (Manual) Lymphocytes % (Manual) Monocytes % (Manual) Eosinophils % (Manual) Basophils % (Manual) Nucleated RBC % Seg Neutrophils # 11.3 H Seg Neutrophils # Man Lymphocytes # (Manual) Monocytes # (Manual) Eosinophils # (Manual) Basophils # (Manual) PT INR Fibrinogen dRVVT Confirm Interp Factor V Activity POC ABG pH POC ABG pCO2 POC ABG pO2 ABG pO2 ABG HCO3 ABG Base Excess ABG Hemoglobin Oxyhemoglobin Sodium Potassium Chloride Carbon Dioxide BUN 55 H Creatinine 1.3 H Glucose 114 H POC Glucose 121 H Lactic Acid Calcium Ionized Calcium Phosphorus Magnesium Direct Bilirubin AST ALT Alkaline Phosphatase Lactate Dehydrogenase Troponin T C-Reactive Protein Total Protein Albumin 1.4 L Prealbumin Triglycerides Cholesterol LDL Cholesterol Direct HDL Cholesterol 25-OH Vitamin D Total PTH Intact Urine pH Urine WBC (Auto) Urine Creatinine Urine Total Protein Fluid Total Protein Vancomycin Trough Rheumatoid Factor Complement C4 Miscellaneous Test Crossmatch 01/28/17 01/28/17 01/29/17 04:59 12:30 00:02 WBC RBC Hgb Hct MCV MCH MCHC RDW Plt Count Lymph % (Auto) [place] % (Auto) Lymph # [place] # Baso # Seg Neutrophils % Seg Neuts % (Manual) Lymphocytes % (Manual) Monocytes % (Manual) Eosinophils % (Manual) Basophils % (Manual) Nucleated RBC % Seg Neutrophils # Seg Neutrophils # Man Lymphocytes # (Manual) Monocytes # (Manual) Eosinophils # (Manual) Basophils # (Manual) PT INR Fibrinogen dRVVT Confirm Interp Factor V Activity POC ABG pH POC ABG pCO2 POC ABG pO2 ABG pO2 ABG HCO3 ABG Base Excess ABG Hemoglobin Oxyhemoglobin Sodium Potassium Chloride Carbon Dioxide BUN Creatinine Glucose POC Glucose 126 H 119 H 138 H Lactic Acid Calcium Ionized Calcium Phosphorus Magnesium Direct Bilirubin AST ALT Alkaline Phosphatase Lactate Dehydrogenase Troponin T C-Reactive Protein Total Protein Albumin Prealbumin Triglycerides Cholesterol LDL Cholesterol Direct HDL Cholesterol 25-OH Vitamin D Total PTH Intact Urine pH Urine WBC (Auto) Urine Creatinine Urine Total Protein Fluid Total Protein Vancomycin Trough Rheumatoid Factor Complement C4 Miscellaneous Test Crossmatch 01/29/17 01/29/17 01/29/17 04:58 06:15 11:35 WBC RBC Hgb Hct MCV MCH MCHC RDW Plt Count Lymph % (Auto) [place] % (Auto) Lymph # [place] # Baso # Seg Neutrophils % Seg Neuts % (Manual) Lymphocytes % (Manual) Monocytes % (Manual) Eosinophils % (Manual) Basophils % (Manual) Nucleated RBC % Seg Neutrophils # Seg Neutrophils # Man Lymphocytes # (Manual) Monocytes # (Manual) Eosinophils # (Manual) Basophils # (Manual) PT INR Fibrinogen dRVVT Confirm Interp Factor V Activity POC ABG pH POC ABG pCO2 POC ABG pO2 ABG pO2 ABG HCO3 ABG Base Excess ABG Hemoglobin Oxyhemoglobin Sodium Potassium Chloride Carbon Dioxide BUN 85 H Creatinine 1.7 H Glucose 105 H POC Glucose 114 H 110 H Lactic Acid Calcium Ionized Calcium Phosphorus Magnesium 2.40 H Direct Bilirubin AST ALT Alkaline Phosphatase Lactate Dehydrogenase Troponin T C-Reactive Protein Total Protein Albumin Prealbumin Triglycerides Cholesterol LDL Cholesterol Direct HDL Cholesterol 25-OH Vitamin D Total PTH Intact Urine pH Urine WBC (Auto) Urine Creatinine Urine Total Protein Fluid Total Protein Vancomycin Trough Rheumatoid Factor Complement C4 Miscellaneous Test Crossmatch 01/29/17 01/29/1717 18:24 23:41 05:12 WBC RBC Hgb Hct MCV MCH MCHC RDW Plt Count Lymph % (Auto) [place] % (Auto) Lymph # [place] # Baso # Seg Neutrophils % Seg Neuts % (Manual) Lymphocytes % (Manual) Monocytes % (Manual) Eosinophils % (Manual) Basophils % (Manual) Nucleated RBC % Seg Neutrophils # Seg Neutrophils # Man Lymphocytes # (Manual) Monocytes # (Manual) Eosinophils # (Manual) Basophils # (Manual) PT INR Fibrinogen dRVVT Confirm Interp Factor V Activity POC ABG pH POC ABG pCO2 POC ABG pO2 ABG pO2 ABG HCO3 ABG Base Excess ABG Hemoglobin Oxyhemoglobin Sodium Potassium Chloride Carbon Dioxide BUN Creatinine Glucose POC Glucose 109 H 134 H 109 H Lactic Acid Calcium Ionized Calcium Phosphorus Magnesium Direct Bilirubin AST ALT Alkaline Phosphatase Lactate Dehydrogenase Troponin T C-Reactive Protein Total Protein Albumin Prealbumin Triglycerides Cholesterol LDL Cholesterol Direct HDL Cholesterol 25-OH Vitamin D Total PTH Intact Urine pH Urine WBC (Auto) Urine Creatinine Urine Total Protein Fluid Total Protein Vancomycin Trough Rheumatoid Factor Complement C4 Miscellaneous Test Crossmatch 01/30/17 01/30/17 01/30/17 11:26 17:43 23:39 WBC RBC Hgb Hct MCV MCH MCHC RDW Plt Count Lymph % (Auto) [place] % (Auto) Lymph # [place] # Baso # Seg Neutrophils % Seg Neuts % (Manual) Lymphocytes % (Manual) Monocytes % (Manual) Eosinophils % (Manual) Basophils % (Manual) Nucleated RBC % Seg Neutrophils # Seg Neutrophils # Man Lymphocytes # (Manual) Monocytes # (Manual) Eosinophils # (Manual) Basophils # (Manual) PT INR Fibrinogen dRVVT Confirm Interp Factor V Activity POC ABG pH POC ABG pCO2 POC ABG pO2 ABG pO2 ABG HCO3 ABG Base Excess ABG Hemoglobin Oxyhemoglobin Sodium Potassium Chloride Carbon Dioxide BUN Creatinine Glucose POC Glucose 135 H 143 H 122 H Lactic Acid Calcium Ionized Calcium Phosphorus Magnesium Direct Bilirubin AST ALT Alkaline Phosphatase Lactate Dehydrogenase Troponin T C-Reactive Protein Total Protein Albumin Prealbumin Triglycerides Cholesterol LDL Cholesterol Direct HDL Cholesterol 25-OH Vitamin D Total PTH Intact Urine pH Urine WBC (Auto) Urine Creatinine Urine Total Protein Fluid Total Protein Vancomycin Trough Rheumatoid Factor Complement C4 Miscellaneous Test Crossmatch 01/31/17 01/31/17 01/31/17 04:00 05:40 11:12 WBC RBC Hgb Hct MCV MCH MCHC RDW Plt Count Lymph % (Auto) [place] % (Auto) Lymph # [place] # Baso # Seg Neutrophils % Seg Neuts % (Manual) Lymphocytes % (Manual) Monocytes % (Manual) Eosinophils % (Manual) Basophils % (Manual) Nucleated RBC % Seg Neutrophils # Seg Neutrophils # Man Lymphocytes # (Manual) Monocytes # (Manual) Eosinophils # (Manual) Basophils # (Manual) PT INR Fibrinogen dRVVT Confirm Interp Factor V Activity POC ABG pH POC ABG pCO2 POC ABG pO2 ABG pO2 ABG HCO3 ABG Base Excess ABG Hemoglobin Oxyhemoglobin Sodium Potassium Chloride Carbon Dioxide BUN 78 H Creatinine 1.5 H Glucose 108 H POC Glucose 123 H Lactic Acid Calcium Ionized Calcium Phosphorus Magnesium Direct Bilirubin AST ALT Alkaline Phosphatase Lactate Dehydrogenase Troponin T C-Reactive Protein 8.10 H Total Protein Albumin Prealbumin Triglycerides Cholesterol LDL Cholesterol Direct HDL Cholesterol 25-OH Vitamin D Total PTH Intact Urine pH Urine WBC (Auto) Urine Creatinine Urine Total Protein Fluid Total Protein Vancomycin Trough Rheumatoid Factor Complement C4 Miscellaneous Test Crossmatch 01/31/17 01/31/17 01/31/17 11:16 17:45 17:50 WBC RBC Hgb Hct MCV MCH MCHC RDW Plt Count Lymph % (Auto) [place] % (Auto) Lymph # [place] # Baso # Seg Neutrophils % Seg Neuts % (Manual) Lymphocytes % (Manual) Monocytes % (Manual) Eosinophils % (Manual) Basophils % (Manual) Nucleated RBC % Seg Neutrophils # Seg Neutrophils # Man Lymphocytes # (Manual) Monocytes # (Manual) Eosinophils # (Manual) Basophils # (Manual) PT INR Fibrinogen dRVVT Confirm Interp Factor V Activity POC ABG pH POC ABG pCO2 POC ABG pO2 ABG pO2 ABG HCO3 ABG Base Excess ABG Hemoglobin Oxyhemoglobin Sodium Potassium Chloride Carbon Dioxide BUN Creatinine Glucose POC Glucose 119 H 111 H Lactic Acid Calcium Ionized Calcium Phosphorus Magnesium Direct Bilirubin AST ALT Alkaline Phosphatase Lactate Dehydrogenase Troponin T C-Reactive Protein Total Protein Albumin Prealbumin Triglycerides Cholesterol LDL Cholesterol Direct HDL Cholesterol 25-OH Vitamin D Total PTH Intact 6.76 L Urine pH Urine WBC (Auto) Urine Creatinine Urine Total Protein Fluid Total Protein Vancomycin Trough Rheumatoid Factor Complement C4 Miscellaneous Test Crossmatch 01/31/17 02/01/17 02/01/17 23:19 05:42 09:24 WBC RBC Hgb Hct MCV MCH MCHC RDW Plt Count Lymph % (Auto) [place] % (Auto) Lymph # [place] # Baso # Seg Neutrophils % Seg Neuts % (Manual) Lymphocytes % (Manual) Monocytes % (Manual) Eosinophils % (Manual) Basophils % (Manual) Nucleated RBC % Seg Neutrophils # Seg Neutrophils # Man Lymphocytes # (Manual) Monocytes # (Manual) Eosinophils # (Manual) Basophils # (Manual) PT INR Fibrinogen dRVVT Confirm Interp Factor V Activity POC ABG pH POC ABG pCO2 POC ABG pO2 ABG pO2 ABG HCO3 ABG Base Excess ABG Hemoglobin Oxyhemoglobin Sodium Potassium Chloride Carbon Dioxide BUN Creatinine Glucose POC Glucose 118 H 122 H Lactic Acid Calcium Ionized Calcium Phosphorus Magnesium 2.60 H Direct Bilirubin AST ALT Alkaline Phosphatase Lactate Dehydrogenase Troponin T C-Reactive Protein Total Protein Albumin Prealbumin Triglycerides Cholesterol LDL Cholesterol Direct HDL Cholesterol 25-OH Vitamin D Total PTH Intact Urine pH Urine WBC (Auto) Urine Creatinine Urine Total Protein Fluid Total Protein Vancomycin Trough Rheumatoid Factor Complement C4 Miscellaneous Test Crossmatch 02/01/17 02/01/17 02/02/17 09:24 12:15 07:40 WBC RBC Hgb Hct MCV MCH MCHC RDW Plt Count Lymph % (Auto) [place] % (Auto) Lymph # [place] # Baso # Seg Neutrophils % Seg Neuts % (Manual) Lymphocytes % (Manual) Monocytes % (Manual) Eosinophils % (Manual) Basophils % (Manual) Nucleated RBC % Seg Neutrophils # Seg Neutrophils # Man Lymphocytes # (Manual) Monocytes # (Manual) Eosinophils # (Manual) Basophils # (Manual) PT INR Fibrinogen dRVVT Confirm Interp Factor V Activity POC ABG pH POC ABG pCO2 POC ABG pO2 ABG pO2 ABG HCO3 ABG Base Excess ABG Hemoglobin Oxyhemoglobin Sodium Potassium Chloride Carbon Dioxide BUN 102 H 72 H Creatinine 1.9 H 1.5 H Glucose 120 H POC Glucose 156 H Lactic Acid Calcium Ionized Calcium Phosphorus Magnesium Direct Bilirubin AST ALT Alkaline Phosphatase Lactate Dehydrogenase Troponin T C-Reactive Protein Total Protein Albumin Prealbumin Triglycerides Cholesterol LDL Cholesterol Direct HDL Cholesterol 25-OH Vitamin D Total PTH Intact Urine pH Urine WBC (Auto) Urine Creatinine Urine Total Protein Fluid Total Protein Vancomycin Trough Rheumatoid Factor Complement C4 Miscellaneous Test Crossmatch 02/02/17 02/02/17 02/03/17 10:16 12:11 00:08 WBC 12.0 H RBC 3.08 L Hgb 8.3 L Hct 25.6 L MCV MCH 27 L MCHC RDW 18.2 H Plt Count Lymph % (Auto) [place] % (Auto) Lymph # [place] # Baso # Seg Neutrophils % 78.4 H Seg Neuts % (Manual) Lymphocytes % (Manual) Monocytes % (Manual) Eosinophils % (Manual) Basophils % (Manual) Nucleated RBC % Seg Neutrophils # 9.4 H Seg Neutrophils # Man Lymphocytes # (Manual) Monocytes # (Manual) Eosinophils # (Manual) Basophils # (Manual) PT INR Fibrinogen dRVVT Confirm Interp Factor V Activity POC ABG pH POC ABG pCO2 POC ABG pO2 ABG pO2 ABG HCO3 ABG Base Excess ABG Hemoglobin Oxyhemoglobin Sodium Potassium Chloride Carbon Dioxide BUN Creatinine Glucose POC Glucose 110 H 120 H Lactic Acid Calcium Ionized Calcium Phosphorus Magnesium Direct Bilirubin AST ALT Alkaline Phosphatase Lactate Dehydrogenase Troponin T C-Reactive Protein Total Protein Albumin Prealbumin Triglycerides Cholesterol LDL Cholesterol Direct HDL Cholesterol 25-OH Vitamin D Total PTH Intact Urine pH Urine WBC (Auto) Urine Creatinine Urine Total Protein Fluid Total Protein Vancomycin Trough Rheumatoid Factor Complement C4 Miscellaneous Test Crossmatch 02/03/17 02/03/17 02/03/17 05:41 07:38 11:31 WBC RBC Hgb Hct MCV MCH MCHC RDW Plt Count Lymph % (Auto) [place] % (Auto) Lymph # [place] # Baso # Seg Neutrophils % Seg Neuts % (Manual) Lymphocytes % (Manual) Monocytes % (Manual) Eosinophils % (Manual) Basophils % (Manual) Nucleated RBC % Seg Neutrophils # Seg Neutrophils # Man Lymphocytes # (Manual) Monocytes # (Manual) Eosinophils # (Manual) Basophils # (Manual) PT INR Fibrinogen dRVVT Confirm Interp Factor V Activity POC ABG pH POC ABG pCO2 POC ABG pO2 ABG pO2 ABG HCO3 ABG Base Excess ABG Hemoglobin Oxyhemoglobin Sodium 134 L Potassium Chloride Carbon Dioxide 21 L BUN 91 H Creatinine 1.9 H Glucose 110 H POC Glucose 119 H 119 H Lactic Acid Calcium 10.3 H Ionized Calcium Phosphorus Magnesium Direct Bilirubin AST ALT Alkaline Phosphatase Lactate Dehydrogenase Troponin T C-Reactive Protein Total Protein Albumin Prealbumin Triglycerides Cholesterol LDL Cholesterol Direct HDL Cholesterol 25-OH Vitamin D Total PTH Intact Urine pH Urine WBC (Auto) Urine Creatinine Urine Total Protein Fluid Total Protein Vancomycin Trough Rheumatoid Factor Complement C4 Miscellaneous Test Crossmatch 02/03/17 02/04/17 02/04/17 17:13 04:00 05:18 WBC RBC Hgb Hct MCV MCH MCHC RDW Plt Count Lymph % (Auto) [place] % (Auto) Lymph # [place] # Baso # Seg Neutrophils % Seg Neuts % (Manual) Lymphocytes % (Manual) Monocytes % (Manual) Eosinophils % (Manual) Basophils % (Manual) Nucleated RBC % Seg Neutrophils # Seg Neutrophils # Man Lymphocytes # (Manual) Monocytes # (Manual) Eosinophils # (Manual) Basophils # (Manual) PT INR Fibrinogen dRVVT Confirm Interp Factor V Activity POC ABG pH POC ABG pCO2 POC ABG pO2 ABG pO2 ABG HCO3 ABG Base Excess ABG Hemoglobin Oxyhemoglobin Sodium 136 L Potassium Chloride Carbon Dioxide BUN 58 H Creatinine 1.3 H Glucose 103 H POC Glucose 133 H 132 H Lactic Acid Calcium Ionized Calcium Phosphorus 2.00 L D Magnesium 1.60 L Direct Bilirubin AST ALT Alkaline Phosphatase Lactate Dehydrogenase Troponin T C-Reactive Protein Total Protein Albumin Prealbumin Triglycerides Cholesterol LDL Cholesterol Direct HDL Cholesterol 25-OH Vitamin D Total PTH Intact Urine pH Urine WBC (Auto) Urine Creatinine Urine Total Protein Fluid Total Protein Vancomycin Trough Rheumatoid Factor Complement C4 Miscellaneous Test Crossmatch 02/05/17 02/05/17 02/05/17 00:01 04:00 06:42 WBC RBC Hgb Hct MCV MCH MCHC RDW Plt Count Lymph % (Auto) [place] % (Auto) Lymph # [place] # Baso # Seg Neutrophils % Seg Neuts % (Manual) Lymphocytes % (Manual) Monocytes % (Manual) Eosinophils % (Manual) Basophils % (Manual) Nucleated RBC % Seg Neutrophils # Seg Neutrophils # Man Lymphocytes # (Manual) Monocytes # (Manual) Eosinophils # (Manual) Basophils # (Manual) PT INR Fibrinogen dRVVT Confirm Interp Factor V Activity POC ABG pH POC ABG pCO2 POC ABG pO2 ABG pO2 ABG HCO3 ABG Base Excess ABG Hemoglobin Oxyhemoglobin Sodium Potassium Chloride Carbon Dioxide BUN 83 H Creatinine 1.8 H Glucose POC Glucose 119 H 110 H Lactic Acid Calcium 10.7 H Ionized Calcium Phosphorus Magnesium Direct Bilirubin AST ALT Alkaline Phosphatase Lactate Dehydrogenase Troponin T C-Reactive Protein Total Protein Albumin Prealbumin Triglycerides Cholesterol LDL Cholesterol Direct HDL Cholesterol 25-OH Vitamin D Total PTH Intact Urine pH Urine WBC (Auto) Urine Creatinine Urine Total Protein Fluid Total Protein Vancomycin Trough Rheumatoid Factor Complement C4 Miscellaneous Test Crossmatch 02/05/17 02/05/17 02/05/17 09:59 11:47 23:44 WBC RBC 2.69 L Hgb 7.2 L Hct 22.5 L MCV MCH 27 L MCHC RDW 18.6 H Plt Count Lymph % (Auto) [place] % (Auto) 9.2 H Lymph # [place] # 0.9 H Baso # Seg Neutrophils % Seg Neuts % (Manual) Lymphocytes % (Manual) Monocytes % (Manual) Eosinophils % (Manual) Basophils % (Manual) Nucleated RBC % Seg Neutrophils # Seg Neutrophils # Man Lymphocytes # (Manual) Monocytes # (Manual) Eosinophils # (Manual) Basophils # (Manual) PT INR Fibrinogen dRVVT Confirm Interp Factor V Activity POC ABG pH POC ABG pCO2 POC ABG pO2 ABG pO2 ABG HCO3 ABG Base Excess ABG Hemoglobin Oxyhemoglobin Sodium Potassium Chloride Carbon Dioxide BUN Creatinine Glucose POC Glucose 130 H 123 H Lactic Acid Calcium Ionized Calcium Phosphorus Magnesium Direct Bilirubin AST ALT Alkaline Phosphatase Lactate Dehydrogenase Troponin T C-Reactive Protein Total Protein Albumin Prealbumin Triglycerides Cholesterol LDL Cholesterol Direct HDL Cholesterol 25-OH Vitamin D Total PTH Intact Urine pH Urine WBC (Auto) Urine Creatinine Urine Total Protein Fluid Total Protein Vancomycin Trough Rheumatoid Factor Complement C4 Miscellaneous Test Crossmatch 02/06/17 02/06/17 02/06/17 04:45 05:58 12:01 WBC RBC Hgb Hct MCV MCH MCHC RDW Plt Count Lymph % (Auto) [place] % (Auto) Lymph # [place] # Baso # Seg Neutrophils % Seg Neuts % (Manual) Lymphocytes % (Manual) Monocytes % (Manual) Eosinophils % (Manual) Basophils % (Manual) Nucleated RBC % Seg Neutrophils # Seg Neutrophils # Man Lymphocytes # (Manual) Monocytes # (Manual) Eosinophils # (Manual) Basophils # (Manual) PT INR Fibrinogen dRVVT Confirm Interp Factor V Activity POC ABG pH POC ABG pCO2 POC ABG pO2 ABG pO2 ABG HCO3 ABG Base Excess ABG Hemoglobin Oxyhemoglobin Sodium Potassium Chloride Carbon Dioxide BUN 101 H Creatinine 2.0 H Glucose 102 H POC Glucose 115 H 132 H Lactic Acid Calcium 10.6 H Ionized Calcium Phosphorus Magnesium Direct Bilirubin AST ALT Alkaline Phosphatase 199 H Lactate Dehydrogenase Troponin T C-Reactive Protein Total Protein Albumin 1.4 L Prealbumin Triglycerides Cholesterol LDL Cholesterol Direct HDL Cholesterol 25-OH Vitamin D Total PTH Intact Urine pH Urine WBC (Auto) Urine Creatinine Urine Total Protein Fluid Total Protein Vancomycin Trough Rheumatoid Factor Complement C4 Miscellaneous Test Crossmatch 02/06/17 02/06/17 02/07/17 17:41 23:32 05:04 WBC RBC Hgb Hct MCV MCH MCHC RDW Plt Count Lymph % (Auto) [place] % (Auto) Lymph # [place] # Baso # Seg Neutrophils % Seg Neuts % (Manual) Lymphocytes % (Manual) Monocytes % (Manual) Eosinophils % (Manual) Basophils % (Manual) Nucleated RBC % Seg Neutrophils # Seg Neutrophils # Man Lymphocytes # (Manual) Monocytes # (Manual) Eosinophils # (Manual) Basophils # (Manual) PT INR Fibrinogen dRVVT Confirm Interp Factor V Activity POC ABG pH POC ABG pCO2 POC ABG pO2 ABG pO2 ABG HCO3 ABG Base Excess ABG Hemoglobin Oxyhemoglobin Sodium Potassium Chloride Carbon Dioxide BUN Creatinine Glucose POC Glucose 134 H 128 H 119 H Lactic Acid Calcium Ionized Calcium Phosphorus Magnesium Direct Bilirubin AST ALT Alkaline Phosphatase Lactate Dehydrogenase Troponin T C-Reactive Protein Total Protein Albumin Prealbumin Triglycerides Cholesterol LDL Cholesterol Direct HDL Cholesterol 25-OH Vitamin D Total PTH Intact Urine pH Urine WBC (Auto) Urine Creatinine Urine Total Protein Fluid Total Protein Vancomycin Trough Rheumatoid Factor Complement C4 Miscellaneous Test Crossmatch 02/07/17 02/07/17 02/07/17 06:30 11:20 17:13 WBC RBC Hgb Hct MCV MCH MCHC RDW Plt Count Lymph % (Auto) [place] % (Auto) Lymph # [place] # Baso # Seg Neutrophils % Seg Neuts % (Manual) Lymphocytes % (Manual) Monocytes % (Manual) Eosinophils % (Manual) Basophils % (Manual) Nucleated RBC % Seg Neutrophils # Seg Neutrophils # Man Lymphocytes # (Manual) Monocytes # (Manual) Eosinophils # (Manual) Basophils # (Manual) PT INR Fibrinogen dRVVT Confirm Interp Factor V Activity POC ABG pH POC ABG pCO2 POC ABG pO2 ABG pO2 ABG HCO3 ABG Base Excess ABG Hemoglobin Oxyhemoglobin Sodium Potassium 3.4 L Chloride Carbon Dioxide BUN 69 H Creatinine 1.5 H Glucose 105 H POC Glucose 117 H 110 H Lactic Acid Calcium Ionized Calcium Phosphorus Magnesium 1.50 L Direct Bilirubin AST ALT Alkaline Phosphatase Lactate Dehydrogenase Troponin T C-Reactive Protein Total Protein Albumin Prealbumin Triglycerides Cholesterol LDL Cholesterol Direct HDL Cholesterol 25-OH Vitamin D Total PTH Intact Urine pH Urine WBC (Auto) Urine Creatinine Urine Total Protein Fluid Total Protein Vancomycin Trough Rheumatoid Factor Complement C4 Miscellaneous Test Crossmatch 02/07/17 02/08/17 02/08/17 20:47 04:00 11:43 WBC RBC Hgb Hct MCV MCH MCHC RDW Plt Count Lymph % (Auto) [place] % (Auto) Lymph # [place] # Baso # Seg Neutrophils % Seg Neuts % (Manual) Lymphocytes % (Manual) Monocytes % (Manual) Eosinophils % (Manual) Basophils % (Manual) Nucleated RBC % Seg Neutrophils # Seg Neutrophils # Man Lymphocytes # (Manual) Monocytes # (Manual) Eosinophils # (Manual) Basophils # (Manual) PT INR Fibrinogen dRVVT Confirm Interp Factor V Activity POC ABG pH POC ABG pCO2 POC ABG pO2 ABG pO2 ABG HCO3 ABG Base Excess ABG Hemoglobin Oxyhemoglobin Sodium Potassium Chloride Carbon Dioxide BUN 86 H Creatinine 1.7 H Glucose POC Glucose 115 H 122 H Lactic Acid Calcium Ionized Calcium Phosphorus Magnesium 1.60 L Direct Bilirubin AST ALT Alkaline Phosphatase Lactate Dehydrogenase Troponin T C-Reactive Protein Total Protein Albumin Prealbumin Triglycerides Cholesterol LDL Cholesterol Direct HDL Cholesterol 25-OH Vitamin D Total PTH Intact Urine pH Urine WBC (Auto) Urine Creatinine Urine Total Protein Fluid Total Protein Vancomycin Trough Rheumatoid Factor Complement C4 Miscellaneous Test Crossmatch 02/08/17 02/09/17 02/09/17 17:36 05:44 11:30 WBC RBC Hgb Hct MCV MCH MCHC RDW Plt Count Lymph % (Auto) [place] % (Auto) Lymph # [place] # Baso # Seg Neutrophils % Seg Neuts % (Manual) Lymphocytes % (Manual) Monocytes % (Manual) Eosinophils % (Manual) Basophils % (Manual) Nucleated RBC % Seg Neutrophils # Seg Neutrophils # Man Lymphocytes # (Manual) Monocytes # (Manual) Eosinophils # (Manual) Basophils # (Manual) PT INR Fibrinogen dRVVT Confirm Interp Factor V Activity POC ABG pH POC ABG pCO2 POC ABG pO2 ABG pO2 ABG HCO3 ABG Base Excess ABG Hemoglobin Oxyhemoglobin Sodium Potassium Chloride Carbon Dioxide BUN Creatinine Glucose POC Glucose 125 H 117 H 120 H Lactic Acid Calcium Ionized Calcium Phosphorus Magnesium Direct Bilirubin AST ALT Alkaline Phosphatase Lactate Dehydrogenase Troponin T C-Reactive Protein Total Protein Albumin Prealbumin Triglycerides Cholesterol LDL Cholesterol Direct HDL Cholesterol 25-OH Vitamin D Total PTH Intact Urine pH Urine WBC (Auto) Urine Creatinine Urine Total Protein Fluid Total Protein Vancomycin Trough Rheumatoid Factor Complement C4 Miscellaneous Test Crossmatch 02/09/17 02/10/17 02/10/17 23:45 05:45 05:50 WBC RBC Hgb Hct MCV MCH MCHC RDW Plt Count Lymph % (Auto) [place] % (Auto) Lymph # [place] # Baso # Seg Neutrophils % Seg Neuts % (Manual) Lymphocytes % (Manual) Monocytes % (Manual) Eosinophils % (Manual) Basophils % (Manual) Nucleated RBC % Seg Neutrophils # Seg Neutrophils # Man Lymphocytes # (Manual) Monocytes # (Manual) Eosinophils # (Manual) Basophils # (Manual) PT INR Fibrinogen dRVVT Confirm Interp Factor V Activity POC ABG pH POC ABG pCO2 POC ABG pO2 ABG pO2 ABG HCO3 ABG Base Excess ABG Hemoglobin Oxyhemoglobin Sodium Potassium Chloride Carbon Dioxide BUN 85 H Creatinine 1.8 H Glucose 109 H POC Glucose 114 H 189 H Lactic Acid Calcium Ionized Calcium Phosphorus Magnesium 2.50 H Direct Bilirubin AST ALT Alkaline Phosphatase Lactate Dehydrogenase Troponin T C-Reactive Protein Total Protein Albumin Prealbumin Triglycerides Cholesterol LDL Cholesterol Direct HDL Cholesterol 25-OH Vitamin D Total PTH Intact Urine pH Urine WBC (Auto) Urine Creatinine Urine Total Protein Fluid Total Protein Vancomycin Trough Rheumatoid Factor Complement C4 Miscellaneous Test Crossmatch 02/10/17 02/10/17 02/10/17 05:51 11:55 17:42 WBC RBC Hgb Hct MCV MCH MCHC RDW Plt Count Lymph % (Auto) [place] % (Auto) Lymph # [place] # Baso # Seg Neutrophils % Seg Neuts % (Manual) Lymphocytes % (Manual) Monocytes % (Manual) Eosinophils % (Manual) Basophils % (Manual) Nucleated RBC % Seg Neutrophils # Seg Neutrophils # Man Lymphocytes # (Manual) Monocytes # (Manual) Eosinophils # (Manual) Basophils # (Manual) PT INR Fibrinogen dRVVT Confirm Interp Factor V Activity POC ABG pH POC ABG pCO2 POC ABG pO2 ABG pO2 ABG HCO3 ABG Base Excess ABG Hemoglobin Oxyhemoglobin Sodium Potassium Chloride Carbon Dioxide BUN Creatinine Glucose POC Glucose 106 H 146 H 132 H Lactic Acid Calcium Ionized Calcium Phosphorus Magnesium Direct Bilirubin AST ALT Alkaline Phosphatase Lactate Dehydrogenase Troponin T C-Reactive Protein Total Protein Albumin Prealbumin Triglycerides Cholesterol LDL Cholesterol Direct HDL Cholesterol 25-OH Vitamin D Total PTH Intact Urine pH Urine WBC (Auto) Urine Creatinine Urine Total Protein Fluid Total Protein Vancomycin Trough Rheumatoid Factor Complement C4 Miscellaneous Test Crossmatch 02/10/17 02/11/17 02/11/17 23:43 04:08 05:34 WBC RBC Hgb Hct MCV MCH MCHC RDW Plt Count Lymph % (Auto) [place] % (Auto) Lymph # [place] # Baso # Seg Neutrophils % Seg Neuts % (Manual) Lymphocytes % (Manual) Monocytes % (Manual) Eosinophils % (Manual) Basophils % (Manual) Nucleated RBC % Seg Neutrophils # Seg Neutrophils # Man Lymphocytes # (Manual) Monocytes # (Manual) Eosinophils # (Manual) Basophils # (Manual) PT INR Fibrinogen dRVVT Confirm Interp Factor V Activity POC ABG pH POC ABG pCO2 POC ABG pO2 ABG pO2 ABG HCO3 ABG Base Excess ABG Hemoglobin Oxyhemoglobin Sodium 136 L Potassium Chloride Carbon Dioxide BUN 65 H Creatinine 1.7 H Glucose 105 H POC Glucose 130 H 113 H Lactic Acid Calcium Ionized Calcium Phosphorus Magnesium Direct Bilirubin AST ALT Alkaline Phosphatase Lactate Dehydrogenase Troponin T C-Reactive Protein Total Protein Albumin Prealbumin Triglycerides Cholesterol LDL Cholesterol Direct HDL Cholesterol 25-OH Vitamin D Total PTH Intact Urine pH Urine WBC (Auto) Urine Creatinine Urine Total Protein Fluid Total Protein Vancomycin Trough Rheumatoid Factor Complement C4 Miscellaneous Test Crossmatch 02/11/17 02/11/17 02/12/17 11:56 23:18 06:19 WBC RBC Hgb Hct MCV MCH MCHC RDW Plt Count Lymph % (Auto) [place] % (Auto) Lymph # [place] # Baso # Seg Neutrophils % Seg Neuts % (Manual) Lymphocytes % (Manual) Monocytes % (Manual) Eosinophils % (Manual) Basophils % (Manual) Nucleated RBC % Seg Neutrophils # Seg Neutrophils # Man Lymphocytes # (Manual) Monocytes # (Manual) Eosinophils # (Manual) Basophils # (Manual) PT INR Fibrinogen dRVVT Confirm Interp Factor V Activity POC ABG pH POC ABG pCO2 POC ABG pO2 ABG pO2 ABG HCO3 ABG Base Excess ABG Hemoglobin Oxyhemoglobin Sodium 136 L Potassium Chloride 97.1 L Carbon Dioxide BUN 93 H Creatinine 2.4 H Glucose POC Glucose 126 H 119 H Lactic Acid Calcium 11.0 H Ionized Calcium Phosphorus Magnesium Direct Bilirubin AST ALT Alkaline Phosphatase Lactate Dehydrogenase Troponin T C-Reactive Protein Total Protein Albumin Prealbumin Triglycerides Cholesterol LDL Cholesterol Direct HDL Cholesterol 25-OH Vitamin D Total PTH Intact Urine pH Urine WBC (Auto) Urine Creatinine Urine Total Protein Fluid Total Protein Vancomycin Trough Rheumatoid Factor Complement C4 Miscellaneous Test Crossmatch 02/12/17 02/12/17 02/12/17 08:00 10:25 11:42 WBC 15.4 H RBC 2.63 L Hgb 6.9 L Hct 22.6 L MCV MCH 26 L MCHC RDW 20.5 H Plt Count Lymph % (Auto) [place] % (Auto) Lymph # [place] # Baso # Seg Neutrophils % Seg Neuts % (Manual) Lymphocytes % (Manual) Monocytes % (Manual) Eosinophils % (Manual) Basophils % (Manual) Nucleated RBC % Seg Neutrophils # Seg Neutrophils # Man Lymphocytes # (Manual) Monocytes # (Manual) Eosinophils # (Manual) Basophils # (Manual) PT INR Fibrinogen dRVVT Confirm Interp Factor V Activity POC ABG pH POC ABG pCO2 POC ABG pO2 ABG pO2 ABG HCO3 ABG Base Excess ABG Hemoglobin Oxyhemoglobin Sodium Potassium Chloride Carbon Dioxide BUN Creatinine Glucose POC Glucose 142 H Lactic Acid Calcium Ionized Calcium Phosphorus Magnesium Direct Bilirubin AST ALT Alkaline Phosphatase Lactate Dehydrogenase Troponin T C-Reactive Protein Total Protein Albumin Prealbumin Triglycerides Cholesterol LDL Cholesterol Direct HDL Cholesterol 25-OH Vitamin D Total PTH Intact Urine pH Urine WBC (Auto) Urine Creatinine Urine Total Protein Fluid Total Protein Vancomycin Trough Rheumatoid Factor Complement C4 Miscellaneous Test Crossmatch See Detail 02/12/17 02/13/17 02/13/17 18:04 00:04 05:00 WBC RBC Hgb Hct MCV MCH MCHC RDW Plt Count Lymph % (Auto) [place] % (Auto) Lymph # [place] # Baso # Seg Neutrophils % Seg Neuts % (Manual) Lymphocytes % (Manual) Monocytes % (Manual) Eosinophils % (Manual) Basophils % (Manual) Nucleated RBC % Seg Neutrophils # Seg Neutrophils # Man Lymphocytes # (Manual) Monocytes # (Manual) Eosinophils # (Manual) Basophils # (Manual) PT INR Fibrinogen dRVVT Confirm Interp Factor V Activity POC ABG pH POC ABG pCO2 POC ABG pO2 ABG pO2 ABG HCO3 ABG Base Excess ABG Hemoglobin Oxyhemoglobin Sodium 134 L Potassium Chloride 96.1 L Carbon Dioxide 20 L BUN 125 H Creatinine 3.0 H Glucose 111 H POC Glucose 135 H 109 H Lactic Acid Calcium 11.3 H Ionized Calcium Phosphorus Magnesium Direct Bilirubin AST ALT Alkaline Phosphatase Lactate Dehydrogenase Troponin T C-Reactive Protein Total Protein Albumin Prealbumin Triglycerides Cholesterol LDL Cholesterol Direct HDL Cholesterol 25-OH Vitamin D Total PTH Intact Urine pH Urine WBC (Auto) Urine Creatinine Urine Total Protein Fluid Total Protein Vancomycin Trough Rheumatoid Factor Complement C4 Miscellaneous Test Crossmatch 02/13/17 02/13/17 02/13/17 05:00 05:28 12:03 WBC 11.9 H RBC 2.92 L Hgb 7.8 L Hct 25.2 L MCV MCH 27 L MCHC RDW 19.3 H Plt Count Lymph % (Auto) [place] % (Auto) Lymph # [place] # Baso # Seg Neutrophils % Seg Neuts % (Manual) Lymphocytes % (Manual) Monocytes % (Manual) Eosinophils % (Manual) Basophils % (Manual) Nucleated RBC % Seg Neutrophils # Seg Neutrophils # Man Lymphocytes # (Manual) Monocytes # (Manual) Eosinophils # (Manual) Basophils # (Manual) PT INR Fibrinogen dRVVT Confirm Interp Factor V Activity POC ABG pH POC ABG pCO2 POC ABG pO2 ABG pO2 ABG HCO3 ABG Base Excess ABG Hemoglobin Oxyhemoglobin Sodium Potassium Chloride Carbon Dioxide BUN Creatinine Glucose POC Glucose 124 H 160 H Lactic Acid Calcium Ionized Calcium Phosphorus Magnesium Direct Bilirubin AST ALT Alkaline Phosphatase Lactate Dehydrogenase Troponin T C-Reactive Protein Total Protein Albumin Prealbumin Triglycerides Cholesterol LDL Cholesterol Direct HDL Cholesterol 25-OH Vitamin D Total PTH Intact Urine pH Urine WBC (Auto) Urine Creatinine Urine Total Protein Fluid Total Protein Vancomycin Trough Rheumatoid Factor Complement C4 Miscellaneous Test Crossmatch 02/13/17 02/14/17 02/14/17 18:09 06:16 08:08 WBC 15.2 H RBC 2.97 L Hgb 8.1 L Hct 26.3 L MCV MCH MCHC RDW 19.3 H Plt Count Lymph % (Auto) [place] % (Auto) Lymph # [place] # Baso # Seg Neutrophils % Seg Neuts % (Manual) Lymphocytes % (Manual) Monocytes % (Manual) Eosinophils % (Manual) Basophils % (Manual) Nucleated RBC % Seg Neutrophils # Seg Neutrophils # Man Lymphocytes # (Manual) Monocytes # (Manual) Eosinophils # (Manual) Basophils # (Manual) PT INR Fibrinogen dRVVT Confirm Interp Factor V Activity POC ABG pH POC ABG pCO2 POC ABG pO2 ABG pO2 ABG HCO3 ABG Base Excess ABG Hemoglobin Oxyhemoglobin Sodium Potassium Chloride Carbon Dioxide BUN Creatinine Glucose POC Glucose 110 H 112 H Lactic Acid Calcium Ionized Calcium Phosphorus Magnesium Direct Bilirubin AST ALT Alkaline Phosphatase Lactate Dehydrogenase Troponin T C-Reactive Protein Total Protein Albumin Prealbumin Triglycerides Cholesterol LDL Cholesterol Direct HDL Cholesterol 25-OH Vitamin D Total PTH Intact Urine pH Urine WBC (Auto) Urine Creatinine Urine Total Protein Fluid Total Protein Vancomycin Trough Rheumatoid Factor Complement C4 Miscellaneous Test Crossmatch 02/14/17 02/14/17 02/15/17 08:08 17:41 04:15 WBC RBC Hgb Hct MCV MCH MCHC RDW Plt Count Lymph % (Auto) [place] % (Auto) Lymph # [place] # Baso # Seg Neutrophils % Seg Neuts % (Manual) Lymphocytes % (Manual) Monocytes % (Manual) Eosinophils % (Manual) Basophils % (Manual) Nucleated RBC % Seg Neutrophils # Seg Neutrophils # Man Lymphocytes # (Manual) Monocytes # (Manual) Eosinophils # (Manual) Basophils # (Manual) PT INR Fibrinogen dRVVT Confirm Interp Factor V Activity POC ABG pH POC ABG pCO2 POC ABG pO2 ABG pO2 ABG HCO3 ABG Base Excess ABG Hemoglobin Oxyhemoglobin Sodium Potassium Chloride Carbon Dioxide 18 L 21 L BUN 79 H 113 H Creatinine 2.1 H 2.8 H Glucose POC Glucose 118 H Lactic Acid Calcium 10.7 H Ionized Calcium Phosphorus 1.70 L D Magnesium 1.60 L Direct Bilirubin AST ALT Alkaline Phosphatase Lactate Dehydrogenase Troponin T C-Reactive Protein Total Protein Albumin Prealbumin Triglycerides Cholesterol LDL Cholesterol Direct HDL Cholesterol 25-OH Vitamin D Total PTH Intact Urine pH Urine WBC (Auto) Urine Creatinine Urine Total Protein Fluid Total Protein Vancomycin Trough Rheumatoid Factor Complement C4 Miscellaneous Test Crossmatch 02/15/17 02/15/17 02/15/17 06:06 11:31 17:52 WBC RBC Hgb Hct MCV MCH MCHC RDW Plt Count Lymph % (Auto) [place] % (Auto) Lymph # [place] # Baso # Seg Neutrophils % Seg Neuts % (Manual) Lymphocytes % (Manual) Monocytes % (Manual) Eosinophils % (Manual) Basophils % (Manual) Nucleated RBC % Seg Neutrophils # Seg Neutrophils # Man Lymphocytes # (Manual) Monocytes # (Manual) Eosinophils # (Manual) Basophils # (Manual) PT INR Fibrinogen dRVVT Confirm Interp Factor V Activity POC ABG pH POC ABG pCO2 POC ABG pO2 ABG pO2 ABG HCO3 ABG Base Excess ABG Hemoglobin Oxyhemoglobin Sodium Potassium Chloride Carbon Dioxide BUN Creatinine Glucose POC Glucose 115 H 129 H 201 H Lactic Acid Calcium Ionized Calcium Phosphorus Magnesium Direct Bilirubin AST ALT Alkaline Phosphatase Lactate Dehydrogenase Troponin T C-Reactive Protein Total Protein Albumin Prealbumin Triglycerides Cholesterol LDL Cholesterol Direct HDL Cholesterol 25-OH Vitamin D Total PTH Intact Urine pH Urine WBC (Auto) Urine Creatinine Urine Total Protein Fluid Total Protein Vancomycin Trough Rheumatoid Factor Complement C4 Miscellaneous Test Crossmatch 02/15/17 02/15/17 02/15/17 19:08 19:08 19:08 WBC RBC Hgb Hct MCV MCH MCHC RDW Plt Count Lymph % (Auto) [place] % (Auto) Lymph # [place] # Baso # Seg Neutrophils % Seg Neuts % (Manual) Lymphocytes % (Manual) Monocytes % (Manual) Eosinophils % (Manual) Basophils % (Manual) Nucleated RBC % Seg Neutrophils # Seg Neutrophils # Man Lymphocytes # (Manual) Monocytes # (Manual) Eosinophils # (Manual) Basophils # (Manual) PT INR Fibrinogen dRVVT Confirm Interp Factor V Activity POC ABG pH POC ABG pCO2 POC ABG pO2 ABG pO2 ABG HCO3 ABG Base Excess ABG Hemoglobin Oxyhemoglobin Sodium Potassium Chloride Carbon Dioxide BUN Creatinine Glucose POC Glucose Lactic Acid Calcium Ionized Calcium 6.0 H Phosphorus Magnesium Direct Bilirubin AST ALT Alkaline Phosphatase Lactate Dehydrogenase Troponin T C-Reactive Protein Total Protein Albumin Prealbumin Triglycerides Cholesterol LDL Cholesterol Direct HDL Cholesterol 25-OH Vitamin D Total 13 L PTH Intact 10.88 L Urine pH Urine WBC (Auto) Urine Creatinine Urine Total Protein Fluid Total Protein Vancomycin Trough Rheumatoid Factor Complement C4 Miscellaneous Test Crossmatch 02/16/17 02/16/17 02/16/17 05:12 06:00 12:39 WBC RBC Hgb Hct MCV MCH MCHC RDW Plt Count Lymph % (Auto) [place] % (Auto) Lymph # [place] # Baso # Seg Neutrophils % Seg Neuts % (Manual) Lymphocytes % (Manual) Monocytes % (Manual) Eosinophils % (Manual) Basophils % (Manual) Nucleated RBC % Seg Neutrophils # Seg Neutrophils # Man Lymphocytes # (Manual) Monocytes # (Manual) Eosinophils # (Manual) Basophils # (Manual) PT INR Fibrinogen dRVVT Confirm Interp Factor V Activity POC ABG pH POC ABG pCO2 POC ABG pO2 ABG pO2 ABG HCO3 ABG Base Excess ABG Hemoglobin Oxyhemoglobin Sodium Potassium Chloride Carbon Dioxide BUN 74 H Creatinine 1.7 H Glucose 102 H POC Glucose 125 H 109 H Lactic Acid Calcium Ionized Calcium Phosphorus 2.10 L D Magnesium Direct Bilirubin AST ALT Alkaline Phosphatase Lactate Dehydrogenase Troponin T C-Reactive Protein Total Protein Albumin Prealbumin Triglycerides Cholesterol LDL Cholesterol Direct HDL Cholesterol 25-OH Vitamin D Total PTH Intact Urine pH Urine WBC (Auto) Urine Creatinine Urine Total Protein Fluid Total Protein Vancomycin Trough Rheumatoid Factor Complement C4 Miscellaneous Test Crossmatch 02/16/17 02/16/17 02/17/17 17:31 23:57 05:30 WBC RBC Hgb Hct MCV MCH MCHC RDW Plt Count Lymph % (Auto) [place] % (Auto) Lymph # [place] # Baso # Seg Neutrophils % Seg Neuts % (Manual) Lymphocytes % (Manual) Monocytes % (Manual) Eosinophils % (Manual) Basophils % (Manual) Nucleated RBC % Seg Neutrophils # Seg Neutrophils # Man Lymphocytes # (Manual) Monocytes # (Manual) Eosinophils # (Manual) Basophils # (Manual) PT INR Fibrinogen dRVVT Confirm Interp Factor V Activity POC ABG pH POC ABG pCO2 POC ABG pO2 ABG pO2 ABG HCO3 ABG Base Excess ABG Hemoglobin Oxyhemoglobin Sodium Potassium Chloride Carbon Dioxide BUN Creatinine Glucose POC Glucose 106 H 127 H 122 H Lactic Acid Calcium Ionized Calcium Phosphorus Magnesium Direct Bilirubin AST ALT Alkaline Phosphatase Lactate Dehydrogenase Troponin T C-Reactive Protein Total Protein Albumin Prealbumin Triglycerides Cholesterol LDL Cholesterol Direct HDL Cholesterol 25-OH Vitamin D Total PTH Intact Urine pH Urine WBC (Auto) Urine Creatinine Urine Total Protein Fluid Total Protein Vancomycin Trough Rheumatoid Factor Complement C4 Miscellaneous Test Crossmatch 02/17/17 02/17/17 02/17/17 06:00 12:17 17:57 WBC RBC Hgb Hct MCV MCH MCHC RDW Plt Count Lymph % (Auto) [place] % (Auto) Lymph # [place] # Baso # Seg Neutrophils % Seg Neuts % (Manual) Lymphocytes % (Manual) Monocytes % (Manual) Eosinophils % (Manual) Basophils % (Manual) Nucleated RBC % Seg Neutrophils # Seg Neutrophils # Man Lymphocytes # (Manual) Monocytes # (Manual) Eosinophils # (Manual) Basophils # (Manual) PT INR Fibrinogen dRVVT Confirm Interp Factor V Activity POC ABG pH POC ABG pCO2 POC ABG pO2 ABG pO2 ABG HCO3 ABG Base Excess ABG Hemoglobin Oxyhemoglobin Sodium Potassium Chloride Carbon Dioxide BUN 94 H Creatinine 2.3 H Glucose 106 H POC Glucose 173 H 140 H Lactic Acid Calcium Ionized Calcium Phosphorus Magnesium Direct Bilirubin AST ALT Alkaline Phosphatase Lactate Dehydrogenase Troponin T C-Reactive Protein Total Protein Albumin Prealbumin Triglycerides Cholesterol LDL Cholesterol Direct HDL Cholesterol 25-OH Vitamin D Total PTH Intact Urine pH Urine WBC (Auto) Urine Creatinine Urine Total Protein Fluid Total Protein Vancomycin Trough Rheumatoid Factor Complement C4 Miscellaneous Test Crossmatch 02/18/17 02/18/17 02/18/17 00:20 05:30 06:14 WBC RBC Hgb Hct MCV MCH MCHC RDW Plt Count Lymph % (Auto) [place] % (Auto) Lymph # [place] # Baso # Seg Neutrophils % Seg Neuts % (Manual) Lymphocytes % (Manual) Monocytes % (Manual) Eosinophils % (Manual) Basophils % (Manual) Nucleated RBC % Seg Neutrophils # Seg Neutrophils # Man Lymphocytes # (Manual) Monocytes # (Manual) Eosinophils # (Manual) Basophils # (Manual) PT INR Fibrinogen dRVVT Confirm Interp Factor V Activity POC ABG pH POC ABG pCO2 POC ABG pO2 ABG pO2 ABG HCO3 ABG Base Excess ABG Hemoglobin Oxyhemoglobin Sodium 136 L Potassium Chloride 97.5 L Carbon Dioxide BUN 73 H Creatinine 1.9 H Glucose POC Glucose 132 H 106 H Lactic Acid Calcium Ionized Calcium Phosphorus Magnesium Direct Bilirubin AST ALT Alkaline Phosphatase Lactate Dehydrogenase Troponin T C-Reactive Protein Total Protein Albumin Prealbumin Triglycerides Cholesterol LDL Cholesterol Direct HDL Cholesterol 25-OH Vitamin D Total PTH Intact Urine pH Urine WBC (Auto) Urine Creatinine Urine Total Protein Fluid Total Protein Vancomycin Trough Rheumatoid Factor Complement C4 Miscellaneous Test Crossmatch 02/18/17 02/18/17 02/18/17 09:51 11:32 17:59 WBC 13.1 H RBC 2.77 L Hgb 7.6 L Hct 23.9 L MCV MCH MCHC RDW 19.0 H Plt Count Lymph % (Auto) [place] % (Auto) 11.1 H Lymph # [place] # 1.5 H Baso # Seg Neutrophils % Seg Neuts % (Manual) Lymphocytes % (Manual) Monocytes % (Manual) Eosinophils % (Manual) Basophils % (Manual) Nucleated RBC % Seg Neutrophils # 9.1 H Seg Neutrophils # Man Lymphocytes # (Manual) Monocytes # (Manual) Eosinophils # (Manual) Basophils # (Manual) PT INR Fibrinogen dRVVT Confirm Interp Factor V Activity POC ABG pH POC ABG pCO2 POC ABG pO2 ABG pO2 ABG HCO3 ABG Base Excess ABG Hemoglobin Oxyhemoglobin Sodium Potassium Chloride Carbon Dioxide BUN Creatinine Glucose POC Glucose 123 H 119 H Lactic Acid Calcium Ionized Calcium Phosphorus Magnesium Direct Bilirubin AST ALT Alkaline Phosphatase Lactate Dehydrogenase Troponin T C-Reactive Protein Total Protein Albumin Prealbumin Triglycerides Cholesterol LDL Cholesterol Direct HDL Cholesterol 25-OH Vitamin D Total PTH Intact Urine pH Urine WBC (Auto) Urine Creatinine Urine Total Protein Fluid Total Protein Vancomycin Trough Rheumatoid Factor Complement C4 Miscellaneous Test Crossmatch 02/18/17 02/19/17 02/19/17 23:47 05:36 09:45 WBC RBC Hgb Hct MCV MCH 27 L MCHC RDW 19.2 H Plt Count Lymph % (Auto) [place] % (Auto) Lymph # [place] # Baso # Seg Neutrophils % Seg Neuts % (Manual) Lymphocytes % (Manual) Monocytes % (Manual) Eosinophils % (Manual) Basophils % (Manual) Nucleated RBC % Seg Neutrophils # Seg Neutrophils # Man Lymphocytes # (Manual) Monocytes # (Manual) Eosinophils # (Manual) Basophils # (Manual) PT INR Fibrinogen dRVVT Confirm Interp Factor V Activity POC ABG pH POC ABG pCO2 POC ABG pO2 ABG pO2 ABG HCO3 ABG Base Excess ABG Hemoglobin Oxyhemoglobin Sodium Potassium Chloride Carbon Dioxide BUN Creatinine Glucose POC Glucose 110 H 121 H Lactic Acid Calcium Ionized Calcium Phosphorus Magnesium Direct Bilirubin AST ALT Alkaline Phosphatase Lactate Dehydrogenase Troponin T C-Reactive Protein Total Protein Albumin Prealbumin Triglycerides Cholesterol LDL Cholesterol Direct HDL Cholesterol 25-OH Vitamin D Total PTH Intact Urine pH Urine WBC (Auto) Urine Creatinine Urine Total Protein Fluid Total Protein Vancomycin Trough Rheumatoid Factor Complement C4 Miscellaneous Test Crossmatch 02/19/17 02/20/17 02/20/17 09:45 00:10 06:15 WBC RBC Hgb Hct MCV MCH MCHC RDW Plt Count Lymph % (Auto) [place] % (Auto) Lymph # [place] # Baso # Seg Neutrophils % Seg Neuts % (Manual) Lymphocytes % (Manual) Monocytes % (Manual) Eosinophils % (Manual) Basophils % (Manual) Nucleated RBC % Seg Neutrophils # Seg Neutrophils # Man Lymphocytes # (Manual) Monocytes # (Manual) Eosinophils # (Manual) Basophils # (Manual) PT INR Fibrinogen dRVVT Confirm Interp Factor V Activity POC ABG pH POC ABG pCO2 POC ABG pO2 ABG pO2 ABG HCO3 ABG Base Excess ABG Hemoglobin Oxyhemoglobin Sodium 136 L Potassium 5.1 H Chloride 97.6 L Carbon Dioxide 20 L 18 L BUN 110 H 135 H Creatinine 2.6 H 3.2 H Glucose 106 H 110 H POC Glucose 117 H Lactic Acid Calcium Ionized Calcium Phosphorus 4.70 H D 5.60 H Magnesium Direct Bilirubin AST ALT Alkaline Phosphatase Lactate Dehydrogenase Troponin T C-Reactive Protein Total Protein Albumin Prealbumin Triglycerides Cholesterol LDL Cholesterol Direct HDL Cholesterol 25-OH Vitamin D Total PTH Intact Urine pH Urine WBC (Auto) Urine Creatinine Urine Total Protein Fluid Total Protein Vancomycin Trough Rheumatoid Factor Complement C4 Miscellaneous Test Crossmatch 02/20/17 02/20/17 02/21/17 11:30 17:51 00:14 WBC RBC Hgb Hct MCV MCH MCHC RDW Plt Count Lymph % (Auto) [place] % (Auto) Lymph # [place] # Baso # Seg Neutrophils % Seg Neuts % (Manual) Lymphocytes % (Manual) Monocytes % (Manual) Eosinophils % (Manual) Basophils % (Manual) Nucleated RBC % Seg Neutrophils # Seg Neutrophils # Man Lymphocytes # (Manual) Monocytes # (Manual) Eosinophils # (Manual) Basophils # (Manual) PT INR Fibrinogen dRVVT Confirm Interp Factor V Activity POC ABG pH POC ABG pCO2 POC ABG pO2 ABG pO2 ABG HCO3 ABG Base Excess ABG Hemoglobin Oxyhemoglobin Sodium Potassium Chloride Carbon Dioxide BUN Creatinine Glucose POC Glucose 173 H 133 H 125 H Lactic Acid Calcium Ionized Calcium Phosphorus Magnesium Direct Bilirubin AST ALT Alkaline Phosphatase Lactate Dehydrogenase Troponin T C-Reactive Protein Total Protein Albumin Prealbumin Triglycerides Cholesterol LDL Cholesterol Direct HDL Cholesterol 25-OH Vitamin D Total PTH Intact Urine pH Urine WBC (Auto) Urine Creatinine Urine Total Protein Fluid Total Protein Vancomycin Trough Rheumatoid Factor Complement C4 Miscellaneous Test Crossmatch 02/21/17 02/21/17 02/21/17 04:09 05:03 11:58 WBC RBC Hgb Hct MCV MCH MCHC RDW Plt Count Lymph % (Auto) [place] % (Auto) Lymph # [place] # Baso # Seg Neutrophils % Seg Neuts % (Manual) Lymphocytes % (Manual) Monocytes % (Manual) Eosinophils % (Manual) Basophils % (Manual) Nucleated RBC % Seg Neutrophils # Seg Neutrophils # Man Lymphocytes # (Manual) Monocytes # (Manual) Eosinophils # (Manual) Basophils # (Manual) PT INR Fibrinogen dRVVT Confirm Interp Factor V Activity POC ABG pH POC ABG pCO2 POC ABG pO2 ABG pO2 ABG HCO3 ABG Base Excess ABG Hemoglobin Oxyhemoglobin Sodium 135 L Potassium Chloride Carbon Dioxide 20 L BUN 76 H Creatinine 2.0 H Glucose 125 H POC Glucose 134 H 139 H Lactic Acid Calcium Ionized Calcium Phosphorus Magnesium Direct Bilirubin AST ALT Alkaline Phosphatase Lactate Dehydrogenase Troponin T C-Reactive Protein Total Protein Albumin Prealbumin Triglycerides Cholesterol LDL Cholesterol Direct HDL Cholesterol 25-OH Vitamin D Total PTH Intact Urine pH Urine WBC (Auto) Urine Creatinine Urine Total Protein Fluid Total Protein Vancomycin Trough Rheumatoid Factor Complement C4 Miscellaneous Test Crossmatch 02/21/17 02/21/17 02/22/17 17:16 23:41 04:10 WBC RBC Hgb Hct MCV MCH MCHC RDW Plt Count Lymph % (Auto) [place] % (Auto) Lymph # [place] # Baso # Seg Neutrophils % Seg Neuts % (Manual) Lymphocytes % (Manual) Monocytes % (Manual) Eosinophils % (Manual) Basophils % (Manual) Nucleated RBC % Seg Neutrophils # Seg Neutrophils # Man Lymphocytes # (Manual) Monocytes # (Manual) Eosinophils # (Manual) Basophils # (Manual) PT INR Fibrinogen dRVVT Confirm Interp Factor V Activity POC ABG pH POC ABG pCO2 POC ABG pO2 ABG pO2 ABG HCO3 ABG Base Excess ABG Hemoglobin Oxyhemoglobin Sodium 135 L Potassium Chloride 97.7 L Carbon Dioxide 21 L BUN 101 H Creatinine 2.5 H Glucose 116 H POC Glucose 120 H 128 H Lactic Acid Calcium Ionized Calcium Phosphorus Magnesium Direct Bilirubin AST ALT Alkaline Phosphatase Lactate Dehydrogenase Troponin T C-Reactive Protein Total Protein Albumin 1.3 L Prealbumin Triglycerides Cholesterol LDL Cholesterol Direct HDL Cholesterol 25-OH Vitamin D Total PTH Intact Urine pH Urine WBC (Auto) Urine Creatinine Urine Total Protein Fluid Total Protein Vancomycin Trough Rheumatoid Factor Complement C4 Miscellaneous Test Crossmatch 02/22/17 02/22/17 02/22/17 06:03 11:38 18:19 WBC RBC Hgb Hct MCV MCH MCHC RDW Plt Count Lymph % (Auto) [place] % (Auto) Lymph # [place] # Baso # Seg Neutrophils % Seg Neuts % (Manual) Lymphocytes % (Manual) Monocytes % (Manual) Eosinophils % (Manual) Basophils % (Manual) Nucleated RBC % Seg Neutrophils # Seg Neutrophils # Man Lymphocytes # (Manual) Monocytes # (Manual) Eosinophils # (Manual) Basophils # (Manual) PT INR Fibrinogen dRVVT Confirm Interp Factor V Activity POC ABG pH POC ABG pCO2 POC ABG pO2 ABG pO2 ABG HCO3 ABG Base Excess ABG Hemoglobin Oxyhemoglobin Sodium Potassium Chloride Carbon Dioxide BUN Creatinine Glucose POC Glucose 126 H 147 H 121 H Lactic Acid Calcium Ionized Calcium Phosphorus Magnesium Direct Bilirubin AST ALT Alkaline Phosphatase Lactate Dehydrogenase Troponin T C-Reactive Protein Total Protein Albumin Prealbumin Triglycerides Cholesterol LDL Cholesterol Direct HDL Cholesterol 25-OH Vitamin D Total PTH Intact Urine pH Urine WBC (Auto) Urine Creatinine Urine Total Protein Fluid Total Protein Vancomycin Trough Rheumatoid Factor Complement C4 Miscellaneous Test Crossmatch 02/23/17 02/23/17 02/23/17 05:00 05:46 12:27 WBC RBC Hgb Hct MCV MCH MCHC RDW Plt Count Lymph % (Auto) [place] % (Auto) Lymph # [place] # Baso # Seg Neutrophils % Seg Neuts % (Manual) Lymphocytes % (Manual) Monocytes % (Manual) Eosinophils % (Manual) Basophils % (Manual) Nucleated RBC % Seg Neutrophils # Seg Neutrophils # Man Lymphocytes # (Manual) Monocytes # (Manual) Eosinophils # (Manual) Basophils # (Manual) PT INR Fibrinogen dRVVT Confirm Interp Factor V Activity POC ABG pH POC ABG pCO2 POC ABG pO2 ABG pO2 ABG HCO3 ABG Base Excess ABG Hemoglobin Oxyhemoglobin Sodium 136 L Potassium Chloride 97.1 L Carbon Dioxide BUN 50 H Creatinine 1.5 H Glucose POC Glucose 110 H 115 H Lactic Acid Calcium 8.1 L Ionized Calcium Phosphorus 1.90 L D Magnesium Direct Bilirubin AST ALT Alkaline Phosphatase Lactate Dehydrogenase Troponin T C-Reactive Protein Total Protein Albumin Prealbumin Triglycerides Cholesterol LDL Cholesterol Direct HDL Cholesterol 25-OH Vitamin D Total PTH Intact Urine pH Urine WBC (Auto) Urine Creatinine Urine Total Protein Fluid Total Protein Vancomycin Trough Rheumatoid Factor Complement C4 Miscellaneous Test Crossmatch 02/23/17 02/23/17 02/24/17 18:02 23:18 05:04 WBC RBC Hgb Hct MCV MCH MCHC RDW Plt Count Lymph % (Auto) [place] % (Auto) Lymph # [place] # Baso # Seg Neutrophils % Seg Neuts % (Manual) Lymphocytes % (Manual) Monocytes % (Manual) Eosinophils % (Manual) Basophils % (Manual) Nucleated RBC % Seg Neutrophils # Seg Neutrophils # Man Lymphocytes # (Manual) Monocytes # (Manual) Eosinophils # (Manual) Basophils # (Manual) PT INR Fibrinogen dRVVT Confirm Interp Factor V Activity POC ABG pH POC ABG pCO2 POC ABG pO2 ABG pO2 ABG HCO3 ABG Base Excess ABG Hemoglobin Oxyhemoglobin Sodium Potassium Chloride Carbon Dioxide BUN Creatinine Glucose POC Glucose 111 H 126 H 121 H Lactic Acid Calcium Ionized Calcium Phosphorus Magnesium Direct Bilirubin AST ALT Alkaline Phosphatase Lactate Dehydrogenase Troponin T C-Reactive Protein Total Protein Albumin Prealbumin Triglycerides Cholesterol LDL Cholesterol Direct HDL Cholesterol 25-OH Vitamin D Total PTH Intact Urine pH Urine WBC (Auto) Urine Creatinine Urine Total Protein Fluid Total Protein Vancomycin Trough Rheumatoid Factor Complement C4 Miscellaneous Test Crossmatch 02/24/17 02/24/17 02/24/17 05:20 10:05 11:34 WBC RBC 2.95 L Hgb 8.4 L Hct 25.7 L MCV MCH MCHC RDW 20.8 H Plt Count Lymph % (Auto) [place] % (Auto) Lymph # [place] # Baso # Seg Neutrophils % 71.8 H Seg Neuts % (Manual) Lymphocytes % (Manual) Monocytes % (Manual) Eosinophils % (Manual) Basophils % (Manual) Nucleated RBC % Seg Neutrophils # Seg Neutrophils # Man Lymphocytes # (Manual) Monocytes # (Manual) Eosinophils # (Manual) Basophils # (Manual) PT INR Fibrinogen dRVVT Confirm Interp Factor V Activity POC ABG pH POC ABG pCO2 POC ABG pO2 ABG pO2 ABG HCO3 ABG Base Excess ABG Hemoglobin Oxyhemoglobin Sodium 136 L Potassium Chloride 95.5 L Carbon Dioxide BUN 76 H Creatinine 2.2 H Glucose 109 H POC Glucose 123 H Lactic Acid Calcium Ionized Calcium Phosphorus Magnesium Direct Bilirubin AST ALT Alkaline Phosphatase Lactate Dehydrogenase Troponin T C-Reactive Protein Total Protein Albumin Prealbumin Triglycerides Cholesterol LDL Cholesterol Direct HDL Cholesterol 25-OH Vitamin D Total PTH Intact Urine pH Urine WBC (Auto) Urine Creatinine Urine Total Protein Fluid Total Protein Vancomycin Trough Rheumatoid Factor Complement C4 Miscellaneous Test Crossmatch 02/24/17 02/24/17 02/25/17 17:43 23:02 05:00 WBC RBC Hgb Hct MCV MCH MCHC RDW Plt Count Lymph % (Auto) [place] % (Auto) Lymph # [place] # Baso # Seg Neutrophils % Seg Neuts % (Manual) Lymphocytes % (Manual) Monocytes % (Manual) Eosinophils % (Manual) Basophils % (Manual) Nucleated RBC % Seg Neutrophils # Seg Neutrophils # Man Lymphocytes # (Manual) Monocytes # (Manual) Eosinophils # (Manual) Basophils # (Manual) PT INR Fibrinogen dRVVT Confirm Interp Factor V Activity POC ABG pH POC ABG pCO2 POC ABG pO2 ABG pO2 ABG HCO3 ABG Base Excess ABG Hemoglobin Oxyhemoglobin Sodium Potassium Chloride 96.8 L Carbon Dioxide BUN 94 H Creatinine 2.8 H Glucose 118 H POC Glucose 128 H 144 H Lactic Acid Calcium Ionized Calcium Phosphorus Magnesium Direct Bilirubin AST ALT Alkaline Phosphatase Lactate Dehydrogenase Troponin T C-Reactive Protein Total Protein Albumin Prealbumin Triglycerides Cholesterol LDL Cholesterol Direct HDL Cholesterol 25-OH Vitamin D Total PTH Intact Urine pH Urine WBC (Auto) Urine Creatinine Urine Total Protein Fluid Total Protein Vancomycin Trough Rheumatoid Factor Complement C4 Miscellaneous Test Crossmatch 02/25/17 02/25/17 02/25/17 05:32 11:44 18:18 WBC RBC Hgb Hct MCV MCH MCHC RDW Plt Count Lymph % (Auto) [place] % (Auto) Lymph # [place] # Baso # Seg Neutrophils % Seg Neuts % (Manual) Lymphocytes % (Manual) Monocytes % (Manual) Eosinophils % (Manual) Basophils % (Manual) Nucleated RBC % Seg Neutrophils # Seg Neutrophils # Man Lymphocytes # (Manual) Monocytes # (Manual) Eosinophils # (Manual) Basophils # (Manual) PT INR Fibrinogen dRVVT Confirm Interp Factor V Activity POC ABG pH POC ABG pCO2 POC ABG pO2 ABG pO2 ABG HCO3 ABG Base Excess ABG Hemoglobin Oxyhemoglobin Sodium Potassium Chloride Carbon Dioxide BUN Creatinine Glucose POC Glucose 118 H 106 H 210 H Lactic Acid Calcium Ionized Calcium Phosphorus Magnesium Direct Bilirubin AST ALT Alkaline Phosphatase Lactate Dehydrogenase Troponin T C-Reactive Protein Total Protein Albumin Prealbumin Triglycerides Cholesterol LDL Cholesterol Direct HDL Cholesterol 25-OH Vitamin D Total PTH Intact Urine pH Urine WBC (Auto) Urine Creatinine Urine Total Protein Fluid Total Protein Vancomycin Trough Rheumatoid Factor Complement C4 Miscellaneous Test Crossmatch 02/26/17 02/26/17 02/26/17 00:07 05:14 12:07 WBC RBC Hgb Hct MCV MCH MCHC RDW Plt Count Lymph % (Auto) [place] % (Auto) Lymph # [place] # Baso # Seg Neutrophils % Seg Neuts % (Manual) Lymphocytes % (Manual) Monocytes % (Manual) Eosinophils % (Manual) Basophils % (Manual) Nucleated RBC % Seg Neutrophils # Seg Neutrophils # Man Lymphocytes # (Manual) Monocytes # (Manual) Eosinophils # (Manual) Basophils # (Manual) PT INR Fibrinogen dRVVT Confirm Interp Factor V Activity POC ABG pH POC ABG pCO2 POC ABG pO2 ABG pO2 ABG HCO3 ABG Base Excess ABG Hemoglobin Oxyhemoglobin Sodium Potassium Chloride Carbon Dioxide BUN Creatinine Glucose POC Glucose 136 H 142 H 132 H Lactic Acid Calcium Ionized Calcium Phosphorus Magnesium Direct Bilirubin AST ALT Alkaline Phosphatase Lactate Dehydrogenase Troponin T C-Reactive Protein Total Protein Albumin Prealbumin Triglycerides Cholesterol LDL Cholesterol Direct HDL Cholesterol 25-OH Vitamin D Total PTH Intact Urine pH Urine WBC (Auto) Urine Creatinine Urine Total Protein Fluid Total Protein Vancomycin Trough Rheumatoid Factor Complement C4 Miscellaneous Test Crossmatch 02/26/17 02/26/17 02/27/17 18:35 23:54 06:25 WBC RBC Hgb Hct MCV MCH MCHC RDW Plt Count Lymph % (Auto) [place] % (Auto) Lymph # [place] # Baso # Seg Neutrophils % Seg Neuts % (Manual) Lymphocytes % (Manual) Monocytes % (Manual) Eosinophils % (Manual) Basophils % (Manual) Nucleated RBC % Seg Neutrophils # Seg Neutrophils # Man Lymphocytes # (Manual) Monocytes # (Manual) Eosinophils # (Manual) Basophils # (Manual) PT INR Fibrinogen dRVVT Confirm Interp Factor V Activity POC ABG pH POC ABG pCO2 POC ABG pO2 ABG pO2 ABG HCO3 ABG Base Excess ABG Hemoglobin Oxyhemoglobin Sodium Potassium Chloride Carbon Dioxide BUN Creatinine Glucose POC Glucose 155 H 150 H 138 H Lactic Acid Calcium Ionized Calcium Phosphorus Magnesium Direct Bilirubin AST ALT Alkaline Phosphatase Lactate Dehydrogenase Troponin T C-Reactive Protein Total Protein Albumin Prealbumin Triglycerides Cholesterol LDL Cholesterol Direct HDL Cholesterol 25-OH Vitamin D Total PTH Intact Urine pH Urine WBC (Auto) Urine Creatinine Urine Total Protein Fluid Total Protein Vancomycin Trough Rheumatoid Factor Complement C4 Miscellaneous Test Crossmatch 02/27/17 02/27/17 02/27/17 08:50 11:50 17:38 WBC RBC Hgb Hct MCV MCH MCHC RDW Plt Count Lymph % (Auto) [place] % (Auto) Lymph # [place] # Baso # Seg Neutrophils % Seg Neuts % (Manual) Lymphocytes % (Manual) Monocytes % (Manual) Eosinophils % (Manual) Basophils % (Manual) Nucleated RBC % Seg Neutrophils # Seg Neutrophils # Man Lymphocytes # (Manual) Monocytes # (Manual) Eosinophils # (Manual) Basophils # (Manual) PT INR Fibrinogen dRVVT Confirm Interp Factor V Activity POC ABG pH POC ABG pCO2 POC ABG pO2 ABG pO2 ABG HCO3 ABG Base Excess ABG Hemoglobin Oxyhemoglobin Sodium Potassium 3.2 L Chloride Carbon Dioxide BUN 95 H Creatinine 2.7 H Glucose 179 H POC Glucose 150 H 133 H Lactic Acid Calcium Ionized Calcium Phosphorus Magnesium Direct Bilirubin AST ALT Alkaline Phosphatase Lactate Dehydrogenase Troponin T C-Reactive Protein Total Protein Albumin Prealbumin Triglycerides Cholesterol LDL Cholesterol Direct HDL Cholesterol 25-OH Vitamin D Total PTH Intact Urine pH Urine WBC (Auto) Urine Creatinine Urine Total Protein Fluid Total Protein Vancomycin Trough Rheumatoid Factor Complement C4 Miscellaneous Test Crossmatch 02/27/17 02/28/17 02/28/17 23:55 05:23 06:10 WBC RBC Hgb Hct MCV MCH MCHC RDW Plt Count Lymph % (Auto) [place] % (Auto) Lymph # [place] # Baso # Seg Neutrophils % Seg Neuts % (Manual) Lymphocytes % (Manual) Monocytes % (Manual) Eosinophils % (Manual) Basophils % (Manual) Nucleated RBC % Seg Neutrophils # Seg Neutrophils # Man Lymphocytes # (Manual) Monocytes # (Manual) Eosinophils # (Manual) Basophils # (Manual) PT INR Fibrinogen dRVVT Confirm Interp Factor V Activity POC ABG pH POC ABG pCO2 POC ABG pO2 ABG pO2 ABG HCO3 ABG Base Excess ABG Hemoglobin Oxyhemoglobin Sodium 134 L Potassium 3.0 L Chloride 94.9 L Carbon Dioxide BUN 53 H Creatinine 1.9 H Glucose 138 H POC Glucose 134 H 164 H Lactic Acid Calcium Ionized Calcium Phosphorus 2.00 L D Magnesium Direct Bilirubin AST ALT Alkaline Phosphatase Lactate Dehydrogenase Troponin T C-Reactive Protein Total Protein Albumin Prealbumin Triglycerides Cholesterol LDL Cholesterol Direct HDL Cholesterol 25-OH Vitamin D Total PTH Intact Urine pH Urine WBC (Auto) Urine Creatinine Urine Total Protein Fluid Total Protein Vancomycin Trough Rheumatoid Factor Complement C4 Miscellaneous Test Crossmatch 02/28/17 12:18 WBC RBC Hgb Hct MCV MCH MCHC RDW Plt Count Lymph % (Auto) [place] % (Auto) Lymph # [place] # Baso # Seg Neutrophils % Seg Neuts % (Manual) Lymphocytes % (Manual) Monocytes % (Manual) Eosinophils % (Manual) Basophils % (Manual) Nucleated RBC % Seg Neutrophils # Seg Neutrophils # Man Lymphocytes # (Manual) Monocytes # (Manual) Eosinophils # (Manual) Basophils # (Manual) PT INR Fibrinogen dRVVT Confirm Interp Factor V Activity POC ABG pH POC ABG pCO2 POC ABG pO2 ABG pO2 ABG HCO3 ABG Base Excess ABG Hemoglobin Oxyhemoglobin Sodium Potassium Chloride Carbon Dioxide BUN Creatinine Glucose POC Glucose 135 H Lactic Acid Calcium Ionized Calcium Phosphorus Magnesium Direct Bilirubin AST ALT Alkaline Phosphatase Lactate Dehydrogenase Troponin T C-Reactive Protein Total Protein Albumin Prealbumin Triglycerides Cholesterol LDL Cholesterol Direct HDL Cholesterol 25-OH Vitamin D Total PTH Intact Urine pH Urine WBC (Auto) Urine Creatinine Urine Total Protein Fluid Total Protein Vancomycin Trough Rheumatoid Factor Complement C4 Miscellaneous Test Crossmatch Allied health notes reviewed: case management
--- NOTE | 2017-02-28 14:54 | Progress Note ---
Assessment and Plan Assessment and plan: Patient is 46-year-old woman with a history of hypertension, diabetes, asthma, hyperlipidemia, chronic kidney disease and anxiety , who was brought in by family because, she couldn't get her words out, her face was also twisted, she was admitted for acute CVA and accelerated hypertension, she had a hx of poor adherence with her medications, and uncontrolled htn. Patient's SBP on admission was noted be greater than 260. TPA was started but this was discontinued after 5 minutes because her blood pressure became uncontrolled. The TPA was not initiated again because the patient was outside the TPA window. Fever obtain UA, UC, blood cx and CXR if continues to spike fever, will consult ID Status post cardiac arrest , 11/21/16 on Mechanical ventilation >96 hrs, >3 months Vent Dependant Respirtory failure secodnary to Anoxic Brain injury S/P Tracheostomy Severe Sepsis with septic shock; has completed abx, case dw ID Surgical wound infection/gram-negative sepsis/candidemia/peritonitis - On TPN ESRD - on HD - Cr 1.9 today Acute CVA with infarct - Neurology input appreciated - CT shows continued evolution of left MCA infarct with slight mass effect and edema, and there is no hemorrhage - PRINCE showed hyperdynamic with ef of 75%, neither clot nor septal defect seen - MRA Brain shows near complete occlusion of M2 and M3 of the left MCA - Repeat CT scan done on 09/11, shows stable findings - carotid doppler negative - Echo shows preserved systolic function but does show some left ventricular diastolic dysfunction - continue asa and statin Persistent vegetative state - This patient's needs placement at SNF - She was denied for LTACH Nosocomial acquired aspiration pneumonia/sepsis/UTI/PERITONITIS - Has been on multiple antibiotics, expect recurrent sepsis due to now known Bowel perforation not amendable to surgery due to clinical condition A. fib with RVR -On amio drip, cannot change to PO due to persistent nausea and vomiting Diabetes type 2. -Continue sliding-scale regular insulin and Accu-Cheks. Hyperlipidemia. Continue statin Severe Protein calorie Malnutrition/Adult failure to thrive - TPN Anemia requiring multiple transfusions/acute blood loss -stable, keep hg above 7 Sacral decubitus ulcer - Status post debridement -Wound vac in place Disposition. Very poor prognosis. DNR - The high probability of a clinically significant, sudden or life threatening deterioration of the [neurologic, CV] system(s) required my full and direct attention, intervention and personal management. The aggregate critical care time was [35] minutes. This time is in addition to time spent performing reported procedures but includes the following: [x] Data Review and interpretation [x] Patient assessment and monitoring of vital signs [x] Documentation [x] Medication orders and management History Interval history: patient seen and examined, remains unresponsive on the ventilator. febrile overnight, no vomiting was tachypneic and tachycardic overnight Hospitalist Physical - Physical exam Narrative exam: GEN: Ill appearing, trach, staring into space,, non purposeful movement NECK: SUPPLE, trach in place, ngt in place and to suction. CVS:Irregular Irregular with LUNGS/CHEST: NORMAL CHEST EXPANSION B, GOOD AIR ENTRY B, tachypena ABD: SOFT, no grimise on abdominal palpation, Ostomy bags at two side by side fistula site. GBS, NO REBOUND OR GUARDING, peg tube in place EXT/SKIN: NO SIGNIFICANT EDEMA BUT WITH UNSTAGEABLE SACRAL DECUB, wound vac inplace MSK: +spontaneous non purposeful movement NEURO: on a ventilator and unresponsive despite being off sedation PSY: Comatose, - Constitutional Vitals: Temp Pulse Resp BP Pulse Ox 100.8 F H 104 H 21 108/63 100 02/28/17 12:00 02/28/17 14:30 02/28/17 14:30 02/28/17 14:30 02/28/17 14:30 General appearance: Present: no acute distress, well-nourished Results - Labs CBC & Chem 7: 02/24/17 10:05 02/28/17 06:10 Labs: Laboratory Last Values WBC 10.2 K/mm3 (4.5-11.0) 02/24/17 10:05 RBC 2.95 M/mm3 (3.65-5.03) L 02/24/17 10:05 Hgb 8.4 gm/dl (10.1-14.3) L 02/24/17 10:05 Hct 25.7 % (30.3-42.9) L 02/24/17 10:05 MCV 87 fl (79-97) 02/24/17 10:05 MCH 28 pg (28-32) 02/24/17 10:05 MCHC 33 % (30-34) 02/24/17 10:05 RDW 20.8 % (13.2-15.2) H 02/24/17 10:05 Plt Count 333 K/mm3 (140-440) 02/24/17 10:05 Lymph % (Auto) 19.8 % (13.4-35.0) 02/24/17 10:05 [place] % (Auto) 7.2 % (0.0-7.3) 02/24/17 10:05 Eos % (Auto) 0.7 % (0.0-4.3) 02/24/17 10:05 Baso % (Auto) 0.5 % (0.0-1.8) 02/24/17 10:05 Lymph # 2.0 K/mm3 (1.2-5.4) 02/24/17 10:05 [place] # 0.7 K/mm3 (0.0-0.8) 02/24/17 10:05 Eos # 0.1 K/mm3 (0.0-0.4) 02/24/17 10:05 Baso # 0.0 K/mm3 (0.0-0.1) 02/24/17 10:05 Add Manual Diff Complete 12/19/16 05:02 Total Counted 100 12/19/16 05:02 Seg Neutrophils % 71.8 % (40.0-70.0) H 02/24/17 10:05 Seg Neuts % (Manual) 64.0 % (40.0-70.0) 12/19/16 05:02 Band Neutrophils % 15.0 % 12/19/16 05:02 Lymphocytes % (Manual) 13.0 % (13.4-35.0) L 12/19/16 05:02 Reactive Lymphs % (Man) 0 % 12/19/16 05:02 Monocytes % (Manual) 7.0 % (0.0-7.3) 12/19/16 05:02 Eosinophils % (Manual) 0 % (0.0-4.3) 12/19/16 05:02 Basophils % (Manual) 1.0 % (0.0-1.8) 12/19/16 05:02 Metamyelocytes % 0 % 12/19/16 05:02 Myelocytes % 0 % 12/19/16 05:02 Promyelocytes % 0 % 12/19/16 05:02 Blast Cells % 0 % 12/19/16 05:02 Nucleated RBC % 1.0 % (0.0-0.9) H 12/19/16 05:02 Seg Neutrophils # 7.3 K/mm3 (1.8-7.7) 02/24/17 10:05 Seg Neutrophils # Man 12.9 K/mm3 (1.8-7.7) H 12/19/16 05:02 Band Neutrophils # 3.0 K/mm3 12/19/16 05:02 Lymphocytes # (Manual) 2.6 K/mm3 (1.2-5.4) 12/19/16 05:02 Abs React Lymphs (Man) 0.0 K/mm3 12/19/16 05:02 Monocytes # (Manual) 1.4 K/mm3 (0.0-0.8) H 12/19/16 05:02 Eosinophils # (Manual) 0.0 K/mm3 (0.0-0.4) 12/19/16 05:02 Basophils # (Manual) 0.2 K/mm3 (0.0-0.1) H 12/19/16 05:02 Metamyelocytes # 0.0 K/mm3 12/19/16 05:02 Myelocytes # 0.0 K/mm3 12/19/16 05:02 Promyelocytes # 0.0 K/mm3 12/19/16 05:02 Blast Cells # 0.0 K/mm3 12/19/16 05:02 Pathologist Review 09/13/16 04:00 WBC Morphology Not Reportable 12/19/16 05:02 Hypersegmented Neuts Not Reportable 12/19/16 05:02 Hyposegmented Neuts Not Reportable 12/19/16 05:02 Hypogranular Neuts Not Reportable 12/19/16 05:02 Smudge Cells Not Reportable 12/19/16 05:02 Toxic Granulation Not Reportable 12/19/16 05:02 Toxic Vacuolation Not Reportable 12/19/16 05:02 Dohle Bodies Not Reportable 12/19/16 05:02 Pelger-Huet Anomaly Not Reportable 12/19/16 05:02 Jasmina Rods Not Reportable 12/19/16 05:02 Platelet Estimate Consistent w auto 12/19/16 05:02 Clumped Platelets Not Reportable 12/19/16 05:02 Plt Clumps, EDTA Not Reportable 12/19/16 05:02 Large Platelets Not Reportable 12/19/16 05:02 Giant Platelets Not Reportable 12/19/16 05:02 Platelet Satelliting Not Reportable 12/19/16 05:02 Plt Morphology Comment Not Reportable 12/19/16 05:02 RBC Morphology Not Reportable 12/19/16 05:02 Dimorphic RBCs Not Reportable 12/19/16 05:02 Polychromasia Not Reportable 12/19/16 05:02 Hypochromasia Not Reportable 12/19/16 05:02 Poikilocytosis Not Reportable 12/19/16 05:02 Anisocytosis Not Reportable 12/19/16 05:02 Microcytosis Not Reportable 12/19/16 05:02 Macrocytosis Not Reportable 12/19/16 05:02 Spherocytes Not Reportable 12/19/16 05:02 Pappenheimer Bodies Not Reportable 12/19/16 05:02 Sickle Cells Not Reportable 12/19/16 05:02 Target Cells Few 12/19/16 05:02 Tear Drop Cells Not Reportable 12/19/16 05:02 Ovalocytes Not Reportable 12/19/16 05:02 Stomatocytes Rare 12/03/16 04:00 Helmet Cells Not Reportable 12/19/16 05:02 [place] Bodies Not Reportable 12/19/16 05:02 [place] Rings Not Reportable 12/19/16 05:02 [place] Cells Not Reportable 12/19/16 05:02 Bite Cells Not Reportable 12/19/16 05:02 Crenated Cell Not Reportable 12/19/16 05:02 Elliptocytes Not Reportable 12/19/16 05:02 Acanthocytes (Spur) Not Reportable 12/19/16 05:02 Rouleaux Not Reportable 12/19/16 05:02 Hemoglobin C Crystals Not Reportable 12/19/16 05:02 Schistocytes Not Reportable 12/19/16 05:02 Malaria parasites Not Reportable 12/19/16 05:02 ESR > 140.0 mm/Hr (0-20) 09/08/16 11:48 Jun Bodies Not Reportable 12/19/16 05:02 Hem Pathologist Commnt No 12/19/16 05:02 PT 15.4 Sec. (12.2-14.9) H 01/13/17 15:50 INR 1.16 (0.87-1.13) H 01/13/17 15:50 APTT 33.0 Sec. (24.2-36.6) 10/09/16 03:45 Thrombin Time 16.8 Sec. (15.1-19.6) 09/03/16 00:10 Fibrinogen 750 mg/dl (211-480) H 09/08/16 11:48 Lupus Anticoagulant see below 09/12/16 09:59 LA PTT Baseline See scanned report 09/12/16 09:59 dRVVT Confirm Interp Positive (Negative) H 09/12/16 09:59 dRVVT Screen 50:50 See scanned report 09/12/16 09:59 dRVVT Mix Interpret See scanned report 09/12/16 09:59 Protein C Antigen 122 % (70-140) 09/08/16 15:35 Free Protein S 97 % normal (50-147) 09/08/16 15:35 Total Protein S 109 % (70-140) 09/08/16 15:35 Antithrombin III Ag 100 % (80-120) 09/08/16 15:35 Heparin Anti-Xa, Unfract Negative (Negative) 09/29/16 13:35 Factor V Activity 182 % (65-150) H 09/08/16 15:35 POC ABG pH 7.436 (7.35-7.45) 01/20/17 12: ABG pH 7.450 pH Units (7.350-7.450) 12/05/16 Unknown POC ABG pCO2 35.3 (35-45) 01/20/17 12:17 ABG pCO2 29.6 mm Hg 12/05/16 Unknown POC ABG pO2 70 (80-105) L 01/20/17 12: ABG pO2 75.2 mm Hg (80.0-90.0) L 12/05/16 Unknown POC ABG HCO3 23.8 01/20/17 12:17 ABG HCO3 20.1 mmol/L (20.0-26.0) 12/05/16 Unknown POC ABG Total CO2 25 01/20/17 12:17 POC ABG O2 Sat 94 01/20/17 12:17 ABG O2 Saturation 96.8 % (95.0-99.0) 12/05/16 Unknown ABG O2 Content 9.9 (0.0-44) 12/05/16 Unknown POC ABG Base Excess 0 01/20/17 12:17 ABG Base Excess -3.4 mmol/L (-2.0-3.0) L 12/05/16 Unknown ABG Hemoglobin 7.4 gm/dl (12.0-16.0) L 12/05/16 Unknown ABG Carboxyhemoglobin 1.8 % (0.0-5.0) 12/05/16 Unknown ABG Methemoglobin 0.6 % (0.0-1.5) 12/05/16 Unknown Oxyhemoglobin 94.5 % (95.0-99.0) L 12/05/16 Unknown FiO2 30 % 01/20/17 12:17 Sodium 134 mmol/L (137-145) L 02/28/17 06:10 Potassium 3.0 mmol/L (3.6-5.0) L 02/28/17 06:10 Chloride 94.9 mmol/L (98-107) L 02/28/17 06:10 Carbon Dioxide 25 mmol/L (22-30) 02/28/17 06:10 Anion Gap 17 mmol/L 02/28/17 06:10 BUN 53 mg/dL (7-17) H 02/28/17 06:10 Creatinine 1.9 mg/dL (0.7-1.2) H 02/28/17 06:10 Estimated GFR 34 ml/min 02/28/17 06:10 BUN/Creatinine Ratio 28 % 02/28/17 06:10 Glucose 138 mg/dL (65-100) H 02/28/17 06:10 POC Glucose 135 (70-105) H 02/28/17 12:18 Osmolality 351 Mosm/kg 09/16/16 11:47 Lactic Acid 2.30 mmol/L (0.7-2.0) H* 01/09/17 08:22 Calcium 9.2 mg/dL (8.4-10.2) 02/28/17 06:10 Ionized Calcium 6.0 mg/dL (4.8-5.6) H 02/15/17 19:08 Phosphorus 2.00 mg/dL (2.5-4.5) L D 02/28/17 06:10 Magnesium 1.90 mg/dL (1.7-2.3) 02/27/17 08:50 Total Bilirubin 0.50 mg/dL (0.1-1.2) 02/22/17 04:10 Direct Bilirubin 0.2 mg/dL (0-0.2) 01/28/17 04:00 Indirect Bilirubin 0.3 mg/dL 01/28/17 04:00 AST 10 units/L (5-40) 02/22/17 04:10 ALT 7 units/L (7-56) 02/22/17 04:10 Alkaline Phosphatase 95 units/L (35-129) 02/22/17 04:10 Ammonia 27.0 umol/L (25-60) 09/07/16 08:37 Lactate Dehydrogenase 170 units/L (91-180) 01/13/17 15:50 Total Creatine Kinase 121 units/L (30-135) 09/29/16 20:12 CK-MB (CK-2) < 1.0 ng/mL (0.0-4.0) 09/29/16 20:12 CK-MB (CK-2) Rel Index 0.8 (0-4) 09/29/16 20:12 Troponin T 0.204 ng/mL (0.00-0.029) H* 09/29/16 20:12 C-Reactive Protein 8.10 mg/dL (0.00-1.30) H 01/31/17 11:12 Total Protein 7.4 g/dL (6.3-8.2) 02/22/17 04:10 Albumin 1.3 g/dL (3.9-5) L 02/22/17 04:10 Albumin/Globulin Ratio 0.2 % 02/22/17 04:10 Prealbumin 0.110 g/L (0.200-0.400) L 12/29/16 05:15 Triglycerides 55 mg/dL (2-149) 02/06/17 04:45 Cholesterol 31 mg/dL (50-199) L 09/29/16 20:12 LDL Cholesterol Direct 4 mg/dL (50-130) L 09/29/16 20:12 HDL Cholesterol 3 mg/dL (40-59) L 09/29/16 20:12 Cholesterol/HDL Ratio 10.33 % 09/29/16 20:12 Angiotensin Convert Enz See scanned report 09/08/16 11:48 Renin 0.99 ng/mL/h (0.25-5.82) 10/07/16 10:56 Aldosterone <1 ng/dL () 10/07/16 10:56 Aldosterone/Renin Dir see below 10/07/16 10:56 Serotonin Release Assay See scanned report 09/29/16 13:35 25-OH Vitamin D Total 13 ng/mL (30-100) L 02/15/17 19:08 25-Hydroxy Vitamin D2 . 02/15/17 19:08 25-Hydroxy Vitamin D3 . 02/15/17 19:08 TSH 1.010 mlU/mL (0.270-4.200) 09/07/16 08:37 HCG, Qual Negative (Negative) 09/03/16 00:10 PTH Intact 10.88 pg/mL (15-65) L 02/15/17 19:08 Total Cortisol 18.2 mcg/dL () 02/02/17 20:09 Urine Color Yellow (Yellow) 11/05/16 13:09 Urine Turbidity Clear (Clear) 11/05/16 13:09 Urine pH 9.0 (5.0-7.0) H 11/05/16 13:09 Ur Specific [place] 1.011 (1.003-1.030) 11/05/16 13:09 Urine Protein 100 mg/dl mg/dL (Negative) 11/05/16 13:09 Urine Glucose (UA) Neg mg/dL (Negative) 11/05/16 13:09 Urine Ketones Neg mg/dL (Negative) 11/05/16 13:09 Urine Blood Neg (Negative) 11/05/16 13:09 Urine Nitrite Neg (Negative) 11/05/16 13:09 Urine Bilirubin Neg (Negative) 11/05/16 13:09 Urine Urobilinogen < 2.0 mg/dL (<2.0) 11/05/16 13:09 Ur Leukocyte Esterase Neg (Negative) 11/05/16 13:09 Urine WBC (Auto) 4.0 /HPF (0.0-6.0) 11/05/16 13:09 Urine RBC (Auto) 1.0 /HPF (0.0-6.0) 11/05/16 13:09 U Epithel Cells (Auto) 1.0 /HPF (0-13.0) 10/07/16 18:30 Urine Bacteria (Auto) 4+ /HPF (Negative) 11/05/16 13:09 Urine WBC Clumps 2+ /HPF 09/07/16 02:47 Hyaline Casts 4 /LPF 09/07/16 02:47 Urine Mucus Few /HPF 10/07/16 18:30 Urine Yeast (Budding) 3+ /HPF 10/07/16 18:30 Urine Eosinophils None seen (None Seen) 09/07/16 16:00 Urine Total Volume 950 11/12/16 10:18 Urine Creatinine 19.7 mg/dL (0.1-20.0) 11/12/16 10:18 Height (in) 65.0 inches 11/12/16 10:18 Weight (lb) 181.0 lbs 11/12/16 10:18 Creatinine Clearance 5 11/12/16 10:18 Urine Sodium 36 mEq/L 09/16/16 19:19 Urine Total Protein 16 mg/dL (5-11.8) H 09/16/16 19:19 Fluid Type Pleural 01/13/17 12:10 Fluid Color Yellow 01/13/17 12:10 Fluid Appearance Hazy 01/13/17 12:10 Fluid WBC 182 /mm3 01/13/17 12:10 Fluid RBC 41 /mm3 01/13/17 12:10 Fluid Seg Neutrophils 85.0 % 01/13/17 12:10 Fluid Lymphocytes 8.0 % 01/13/17 12:10 Fluid Reactive Lymphs 0 % 01/13/17 12:10 Fluid Monocytes 6.0 % 01/13/17 12:10 Fluid Eosinophils 1.0 % 01/13/17 12:10 Fluid Basophils 0 % 01/13/17 12:10 Fluid Total Protein 3.0 (15.0-45.0) L 01/13/17 12:10 Fluid LDH 1322 01/13/17 12:10 Fluid Comment Diff performed 01/13/17 12:10 Vancomycin Trough 2.3 ug/mL (5.0-20.0) L 09/21/16 13:00 Random Vancomycin 16.5 ug/mL (0-40.0) 11/28/16 09:45 Urine Opiates Screen Presumptive negative 09/03/16 15:11 Urine Methadone Screen Presumptive positive 09/03/16 15:11 Ur Barbiturates Screen Presumptive positive 09/03/16 15:11 Ur Phencyclidine Scrn Presumptive negative 09/03/16 15:11 Ur Amphetamines Screen Presumptive negative 09/03/16 15:11 U Benzodiazepines Scrn Presumptive negative 09/03/16 15:11 Urine Cocaine Screen Presumptive negative 09/03/16 15:11 U Marijuana (THC) Screen Presumptive positive 09/03/16 15:11 Drugs of Abuse Note Disclamer 09/03/16 15:11 Rheumatoid Factor 24 IU/ml (0-13) H 09/08/16 11:48 SAHIL Screen Negative (Negative) 09/07/16 09:20 Proteinase 3 (PR3) Ab <1.0 AI (<1.0) 09/07/16 09:20 Myeloperoxidase Ab <1.0 AI (<1.0) 09/07/16 09:20 Sjogren's Antibody <1.0 AI (<1.0) 09/08/16 15:35 Scl-70 Scleroderma Ab <1.0 AI (<1.0) 09/08/16 15:35 Centromere B Antibody <1.0 AI (<1.0) 09/08/16 12:02 Heparin-induced Plt Ab Negative (Negative) 09/29/16 13:35 UF Heparin High Dose 11 % Release 09/29/16 13:35 SUDHIR UFH Low Dose 0.1 6 % Release 09/29/16 13:35 SUDHIR UFH Low Dose 0.5 8 % Release 09/29/16 13:35 Cardiolipid IgG Ab <14 GPL (<=14) 09/12/16 09:59 Cardiolipid IgA Ab <11 APL (<=11) 09/12/16 09:59 Cardiolipid IgM Ab <12 MPL (<=12) 09/12/16 09:59 Complement C3 148 mg/dL (90-180) 09/07/16 09:20 Complement C4 58 mg/dL (16-47) H 09/07/16 09:20 RPR Nonreactive (Nonreactive) 09/08/16 11:48 Hepatitis A IgM Ab Non-reactive (NonReactive) 09/24/16 14:40 Hep Bs Antigen Non-reactive (Negative) 09/24/16 14:40 Hep B Core IgM Ab Non-reactive (NonReactive) 09/24/16 14:40 Hepatitis C Antibody Non-reactive (NonReactive) 09/24/16 14:40 HIV 1&2 Antibody Rapid Non react (Non React) 09/08/16 11:48 HIV P24 Antigen Non react (Non React) 09/08/16 11:48 Miscellaneous Test Flexitest 1 H 01/09/17 18:45 Blood Type A POSITIVE 02/12/17 10:25 Antibody Screen Negative 02/12/17 10:25 DELORIS Antibody Screen Negative 11/24/16 11:20 Crossmatch See Detail 02/12/17 10:25
[2017-02-28] MEDS ORDERED: TPN ADULT IV SCH (20:00)
[2017-03-01 05:18] LABS: Calcium 9.9 mg/dL (8.4-10.2)
[2017-03-01] MEDS: HumuLIN R SUB-Q SCH ×4 (05:30→17:09)
--- NOTE | 2017-03-01 09:49 | Progress Note ---
Assessment and Plan Patient is 46-year-old woman with a history of hypertension, diabetes mellitus, asthma, hyperlipidemia, chronic kidney disease and anxiety, who was brought in by family because she couldn't get her words out, her face was also twisted, she was admitted for acute CVA and accelerated hypertension, she had a hx of poor adherence with her medications, and uncontrolled hypertension. Patient's SBP on admission was noted be greater than 260. TPA was started but this it was discontinued after 5 minutes because her blood pressure became uncontrolled. The TPA was not initiated again because the patient was outside the TPA window. Patient has had a prolonged hospital stay complicated with recurrent severe sepsis. Patient with most recent event also status post cardiac arrest on 11/21/16 , with CPR and ROSC. Acute on chronic Hypoxemic Respiratory Failure Sepsis -recurrent s/p tracheostomy Hypertension Atrial Fibrillation with RVR Acute encephalopathy s/p CVA Oropharyngeal dysphagia Enterococcal bacteremia Sacral Decubitus Ulcer- unstageable s/p debridement Anemia Obesity JUANITA now on hemodialysis Enteric Fistula - VAP bundle addressed - continue NGT to LIS - continue wound care/wound vac per WCT - Vasopressor if MAP falls < 65mmHg - keep on with daily PSV trials and / or T-piece as tolerated - continue TPN administration (continue TPN; NPO except for meds) - continue airway clearance and secretion management - continue to wean FiO2 for sats > 94% - continue to monitor hemodynamics closely - continue HD/UF per nephrology - continue to follow electrolytes and correct as necessary - continue GI & VTE prophylaxis Transfuse 1 unit PRBC as needed to keep HgH>7g/dL .....she remains critically ill on life sustaining interventions including MVS and at risk for further deterioration including ...fdc prognosis remains poor - Patient Problems (1) Acute respiratory failure with hypoxia Current Visit: Yes Status: Acute (2) Acute blood loss anemia Current Visit: Yes Status: Resolved (3) Acute CVA (cerebrovascular accident) Current Visit: Yes Status: Acute (4) Chronic renal insufficiency Current Visit: Yes Status: Acute (5) Uncontrolled hypertension Current Visit: Yes Status: Acute (6) Leukocytosis (leucocytosis) Current Visit: Yes Status: Acute Qualifiers: Leukocytosis type: leukemoid reaction Qualified Code(s): D72.823 - Leukemoid reaction (7) Dislodged gastrostomy tube Current Visit: Yes Status: Acute (8) Fungemia Current Visit: Yes Status: Resolved (9) Cardiopulmonary arrest with successful resuscitation Current Visit: Yes Status: Acute Subjective Date of service: 03/01/17 Principal diagnosis: Acute resp failure on MVS; S/P Acute CVA; Acute Encephalopathy; JUANITA Interval history: Patient is seen today for: Acute resp failure on MVS; S/P Acute CVA; Acute Encephalopathy; JUANITA Seen and examined at bedside; 24hour events reviewed; nursing and respiratory care staff consulted; no adverse overnight events reported to me; she remains critically ill Patient was made DNR on 02/12/2017 by family, see hospitalist documentation. No new events Vitals, labs, medications, chart reviewed. Discussed with RT and RN Daily SBTs as tolerated. Discussed interdisciplinary rounds Objective - Exam Narrative Exam: General appearance: somnolent non communicative, on the vent via trach in mild resp distress, no following commands Eyes: anicteric sclera, moist conjunctivae; PERRLA HENT: Atraumatic; oropharynx limited; Normal external ears. +NGT with greenish secretion Neck: +trach in place; supple, no thyromegaly or lymphadenopathy Lungs: brit coarse BS CV: tachy Abdomen: Soft, non-tender, +old PEG site no drainage. +ileostomy. Right sided Surgical site x 2 with ostomy bag draining small amount yellowish secretion Extremities: +peripheral edema Skin: sacral area wounds - per wound care, wound vac in place Psych: somnolent . Neuro: alert non verbal on the vent. Lines: PICC / gutierrez Vital Signs - 12hr 02/28/17 02/28/17 02/28/17 22:00 22:15 22:30 Temperature Pulse Rate 93 H 89 90 Pulse Rate [ From Monitor] Respiratory 12 12 12 Rate Blood Pressure 108/58 118/62 113/62 O2 Sat by Pulse 100 100 100 Oximetry O2 Sat by Pulse Oximetry [ Assessment] 02/28/17 02/28/17 02/28/17 22:45 23:00 23:15 Temperature Pulse Rate 101 H 114 H 105 H Pulse Rate [ From Monitor] Respiratory 21 15 17 Rate Blood Pressure 113/62 153/88 130/60 O2 Sat by Pulse 100 100 100 Oximetry O2 Sat by Pulse Oximetry [ Assessment] 02/28/17 02/28/17 02/28/17 23:30 23:32 23:45 Temperature Pulse Rate 102 H 110 H 96 H Pulse Rate [ From Monitor] Respiratory 19 16 Rate Blood Pressure 131/69 153/88 139/70 O2 Sat by Pulse 97 100 100 Oximetry O2 Sat by Pulse Oximetry [ Assessment] 03/01/17 03/01/17 03/01/17 00:00 00:15 00:30 Temperature 99.4 F Pulse Rate 94 H 95 H 92 H Pulse Rate [ From Monitor] Respiratory 16 22 16 Rate Blood Pressure 125/74 117/75 111/69 O2 Sat by Pulse 100 100 100 Oximetry O2 Sat by Pulse Oximetry [ Assessment] 03/01/17 03/01/17 03/01/17 00:45 01:00 01:15 Temperature Pulse Rate 95 H 96 H 97 H Pulse Rate [ From Monitor] Respiratory 17 25 H 22 Rate Blood Pressure 123/78 131/75 123/78 O2 Sat by Pulse 100 100 100 Oximetry O2 Sat by Pulse Oximetry [ Assessment] 03/01/17 03/01/17 03/01/17 01:30 01:45 02:00 Temperature Pulse Rate 89 94 H 97 H Pulse Rate [ From Monitor] Respiratory 13 20 23 Rate Blood Pressure 131/75 138/80 137/76 O2 Sat by Pulse 100 100 100 Oximetry O2 Sat by Pulse Oximetry [ Assessment] 03/01/17 03/01/17 03/01/17 02:15 02:30 02:45 Temperature Pulse Rate 95 H 94 H 96 H Pulse Rate [ From Monitor] Respiratory 19 16 15 Rate Blood Pressure 123/77 133/81 126/77 O2 Sat by Pulse 98 100 100 Oximetry O2 Sat by Pulse Oximetry [ Assessment] 03/01/17 03/01/17 03/01/17 03:00 03:15 03:30 Temperature Pulse Rate 99 H 98 H 96 H Pulse Rate [ From Monitor] Respiratory 14 14 14 Rate Blood Pressure 134/80 140/83 140/83 O2 Sat by Pulse 100 100 100 Oximetry O2 Sat by Pulse Oximetry [ Assessment] 03/01/17 03/01/17 03/01/17 03:45 04:00 04:03 Temperature 98.4 F Pulse Rate 100 H 105 H Pulse Rate [ From Monitor] Respiratory 19 20 Rate Blood Pressure 154/81 147/89 O2 Sat by Pulse 99 100 Oximetry O2 Sat by Pulse 100 Oximetry [ Assessment] 03/01/17 03/01/17 03/01/17 04:15 04:31 04:45 Temperature Pulse Rate 103 H 104 H 104 H Pulse Rate [ From Monitor] Respiratory 26 H 22 24 Rate Blood Pressure 159/87 162/78 181/82 O2 Sat by Pulse 100 100 100 Oximetry O2 Sat by Pulse Oximetry [ Assessment] 03/01/17 03/01/17 03/01/17 05:01 05:15 05:30 Temperature Pulse Rate 102 H 101 H 105 H Pulse Rate [ From Monitor] Respiratory 22 17 22 Rate Blood Pressure 146/79 148/79 136/79 O2 Sat by Pulse 100 100 100 Oximetry O2 Sat by Pulse Oximetry [ Assessment] 03/01/17 03/01/17 03/01/17 05:45 06:01 06:15 Temperature Pulse Rate 105 H 105 H 106 H Pulse Rate [ From Monitor] Respiratory 22 21 22 Rate Blood Pressure 152/88 152/80 129/80 O2 Sat by Pulse 100 100 100 Oximetry O2 Sat by Pulse Oximetry [ Assessment] 03/01/17 03/01/17 03/01/17 06:30 06:45 07:00 Temperature Pulse Rate 107 H 105 H 109 H Pulse Rate [ From Monitor] Respiratory 20 20 22 Rate Blood Pressure 147/85 141/83 124/62 O2 Sat by Pulse 100 100 85 Oximetry O2 Sat by Pulse Oximetry [ Assessment] 03/01/17 03/01/17 03/01/17 07:15 07:30 07:45 Temperature Pulse Rate 106 H 104 H 106 H Pulse Rate [ From Monitor] Respiratory 13 17 22 Rate Blood Pressure 120/69 136/81 136/81 O2 Sat by Pulse 86 100 100 Oximetry O2 Sat by Pulse Oximetry [ Assessment] 03/01/17 03/01/17 03/01/17 08:00 08:15 08:30 Temperature 98.7 F Pulse Rate 107 H 111 H 110 H Pulse Rate [ 107 H From Monitor] Respiratory 18 19 24 Rate Blood Pressure 127/80 126/87 137/82 O2 Sat by Pulse 100 100 97 Oximetry O2 Sat by Pulse Oximetry [ Assessment] 03/01/17 08:45 Temperature Pulse Rate 113 H Pulse Rate [ From Monitor] Respiratory 32 H Rate Blood Pressure 126/82 O2 Sat by Pulse 94 Oximetry O2 Sat by Pulse Oximetry [ Assessment] Constitutional: appears uncomfortable, other (not tracking) Eyes: non-icteric, other (tracheostomy tube in midline of neck) ENT: oropharynx moist, oropharyngeal exudate pre, other (midline tracheostomy tube) Neck: supple, no lymphadenopathy, no JVD, other (no thyromegaly) Effort: mildly labored Ascultation: Bilateral: clear, diminished breath sounds, rales, rhonchi (and referred upper airway sounds) Percussion: Right: dull (base), Bilateral: not dull Cardiovascular: regular rate and rhythm, other (no rubs / murmurs) Gastrointestinal: hypoactive bowel sounds, soft, non-tender, non-distended, other (RLQ & LUQ stomas with colostomy bags) Integumentary: decubitus ulcer (sacral; stage 4 s/p surgical debridement), other (no rash; no cellulitis; poor turgor) Extremities: no cyanosis, pulses normal, no ischemia or petechiae, edema (1+ bilaterally) Neurologic: pupils equal and round, unable to assess, other (encephalopathic) Psychiatric: other (unable to assess) CBC and BMP: 02/24/17 10:05 03/07/17 06:04 ABG, PT/INR, D-dimer: ABG POC ABG pH 7.436 (7.35-7.45) 01/20/17 12:17 ABG pH 7.450 pH Units (7.350-7.450) 12/05/16 Unknown POC ABG pCO2 35.3 (35-45) 01/20/17 12:17 ABG pCO2 29.6 mm Hg 12/05/16 Unknown POC ABG pO2 70 (80-105) L 01/20/17 12:17 ABG pO2 75.2 mm Hg (80.0-90.0) L 12/05/16 Unknown POC ABG HCO3 23.8 01/20/17 12:17 POC ABG Total CO2 25 01/20/17 12:17 POC ABG O2 Sat 94 01/20/17 12:17 ABG O2 Saturation 96.8 % (95.0-99.0) 12/05/16 Unknown PT/INR, D-dimer PT 15.4 Sec. (12.2-14.9) H 01/13/17 15:50 INR 1.16 (0.87-1.13) H 01/13/17 15:50 Abnormal lab findings: Abnormal Labs 09/03/16 09/03/16 09/03/16 00:03 00:10 00:10 WBC 13.9 H RBC 5.95 H Hgb Hct 44.0 H MCV 74 L MCH 22 L MCHC RDW 17.5 H Plt Count Lymph % (Auto) Benzie % (Auto) Lymph # Benzie # Baso # Seg Neutrophils % Seg Neuts % (Manual) Lymphocytes % (Manual) 54.0 H Monocytes % (Manual) Eosinophils % (Manual) Basophils % (Manual) Nucleated RBC % Seg Neutrophils # Seg Neutrophils # Man Lymphocytes # (Manual) 7.5 H Monocytes # (Manual) Eosinophils # (Manual) Basophils # (Manual) PT INR Fibrinogen dRVVT Confirm Interp Factor V Activity POC ABG pH POC ABG pCO2 POC ABG pO2 ABG pO2 ABG HCO3 ABG Base Excess ABG Hemoglobin Oxyhemoglobin Sodium Potassium 2.8 L* Chloride Carbon Dioxide 21 L BUN Creatinine 1.7 H Glucose 159 H POC Glucose 177 H Lactic Acid Calcium Ionized Calcium Phosphorus Magnesium Direct Bilirubin AST ALT Alkaline Phosphatase Lactate Dehydrogenase Troponin T C-Reactive Protein Total Protein Albumin Prealbumin Triglycerides Cholesterol LDL Cholesterol Direct HDL Cholesterol 25-OH Vitamin D Total PTH Intact Urine pH Urine WBC (Auto) Urine Creatinine Urine Total Protein Fluid Total Protein Vancomycin Trough Rheumatoid Factor Complement C4 Miscellaneous Test Crossmatch 09/03/16 09/03/16 09/03/16 12:12 15:07 16:20 WBC RBC Hgb Hct MCV MCH MCHC RDW Plt Count Lymph % (Auto) Benzie % (Auto) Lymph # Benzie # Baso # Seg Neutrophils % Seg Neuts % (Manual) Lymphocytes % (Manual) Monocytes % (Manual) Eosinophils % (Manual) Basophils % (Manual) Nucleated RBC % Seg Neutrophils # Seg Neutrophils # Man Lymphocytes # (Manual) Monocytes # (Manual) Eosinophils # (Manual) Basophils # (Manual) PT INR Fibrinogen dRVVT Confirm Interp Factor V Activity POC ABG pH 7.452 H POC ABG pCO2 POC ABG pO2 ABG pO2 ABG HCO3 ABG Base Excess ABG Hemoglobin Oxyhemoglobin Sodium Potassium Chloride Carbon Dioxide BUN Creatinine Glucose POC Glucose 178 H Lactic Acid Calcium Ionized Calcium Phosphorus 2.20 L Magnesium 1.60 L Direct Bilirubin AST ALT Alkaline Phosphatase Lactate Dehydrogenase Troponin T C-Reactive Protein Total Protein Albumin Prealbumin Triglycerides Cholesterol LDL Cholesterol Direct HDL Cholesterol 25-OH Vitamin D Total PTH Intact Urine pH Urine WBC (Auto) Urine Creatinine Urine Total Protein Fluid Total Protein Vancomycin Trough Rheumatoid Factor Complement C4 Miscellaneous Test Crossmatch 09/03/16 09/03/16 09/03/16 17:57 17:58 23:50 WBC RBC Hgb Hct MCV MCH MCHC RDW Plt Count Lymph % (Auto) Benzie % (Auto) Lymph # Benzie # Baso # Seg Neutrophils % Seg Neuts % (Manual) Lymphocytes % (Manual) Monocytes % (Manual) Eosinophils % (Manual) Basophils % (Manual) Nucleated RBC % Seg Neutrophils # Seg Neutrophils # Man Lymphocytes # (Manual) Monocytes # (Manual) Eosinophils # (Manual) Basophils # (Manual) PT INR Fibrinogen dRVVT Confirm Interp Factor V Activity POC ABG pH POC ABG pCO2 POC ABG pO2 ABG pO2 ABG HCO3 ABG Base Excess ABG Hemoglobin Oxyhemoglobin Sodium Potassium Chloride Carbon Dioxide BUN Creatinine Glucose POC Glucose 162 H 145 H Lactic Acid Calcium Ionized Calcium Phosphorus 2.30 L Magnesium Direct Bilirubin AST ALT Alkaline Phosphatase Lactate Dehydrogenase Troponin T C-Reactive Protein Total Protein Albumin Prealbumin Triglycerides Cholesterol LDL Cholesterol Direct HDL Cholesterol 25-OH Vitamin D Total PTH Intact Urine pH Urine WBC (Auto) Urine Creatinine Urine Total Protein Fluid Total Protein Vancomycin Trough Rheumatoid Factor Complement C4 Miscellaneous Test Crossmatch 09/04/16 09/04/16 09/04/16 03:31 03:31 05:42 WBC RBC Hgb 9.7 L D Hct MCV 72 L MCH 23 L MCHC RDW 17.5 H Plt Count Lymph % (Auto) 11.1 L Benzie % (Auto) Lymph # Benzie # Baso # Seg Neutrophils % 84.3 H Seg Neuts % (Manual) Lymphocytes % (Manual) Monocytes % (Manual) Eosinophils % (Manual) Basophils % (Manual) Nucleated RBC % Seg Neutrophils # 8.9 H Seg Neutrophils # Man Lymphocytes # (Manual) Monocytes # (Manual) Eosinophils # (Manual) Basophils # (Manual) PT INR Fibrinogen dRVVT Confirm Interp Factor V Activity POC ABG pH POC ABG pCO2 POC ABG pO2 ABG pO2 ABG HCO3 ABG Base Excess ABG Hemoglobin Oxyhemoglobin Sodium 135 L Potassium 2.9 L* Chloride 97.2 L Carbon Dioxide 19 L BUN Creatinine 1.7 H Glucose 170 H POC Glucose 152 H Lactic Acid Calcium Ionized Calcium Phosphorus Magnesium Direct Bilirubin AST ALT Alkaline Phosphatase Lactate Dehydrogenase Troponin T C-Reactive Protein Total Protein Albumin Prealbumin Triglycerides 160 H Cholesterol LDL Cholesterol Direct HDL Cholesterol 31 L 25-OH Vitamin D Total PTH Intact Urine pH Urine WBC (Auto) Urine Creatinine Urine Total Protein Fluid Total Protein Vancomycin Trough Rheumatoid Factor Complement C4 Miscellaneous Test Crossmatch 09/04/16 09/04/16 09/04/16 11:34 17:46 23:29 WBC RBC Hgb Hct MCV MCH MCHC RDW Plt Count Lymph % (Auto) Benzie % (Auto) Lymph # Benzie # Baso # Seg Neutrophils % Seg Neuts % (Manual) Lymphocytes % (Manual) Monocytes % (Manual) Eosinophils % (Manual) Basophils % (Manual) Nucleated RBC % Seg Neutrophils # Seg Neutrophils # Man Lymphocytes # (Manual) Monocytes # (Manual) Eosinophils # (Manual) Basophils # (Manual) PT INR Fibrinogen dRVVT Confirm Interp Factor V Activity POC ABG pH POC ABG pCO2 POC ABG pO2 ABG pO2 ABG HCO3 ABG Base Excess ABG Hemoglobin Oxyhemoglobin Sodium Potassium Chloride Carbon Dioxide BUN Creatinine Glucose POC Glucose 165 H 210 H 139 H Lactic Acid Calcium Ionized Calcium Phosphorus Magnesium Direct Bilirubin AST ALT Alkaline Phosphatase Lactate Dehydrogenase Troponin T C-Reactive Protein Total Protein Albumin Prealbumin Triglycerides Cholesterol LDL Cholesterol Direct HDL Cholesterol 25-OH Vitamin D Total PTH Intact Urine pH Urine WBC (Auto) Urine Creatinine Urine Total Protein Fluid Total Protein Vancomycin Trough Rheumatoid Factor Complement C4 Miscellaneous Test Crossmatch 09/05/16 09/05/16 09/05/16 04:05 04:05 05:38 WBC RBC Hgb Hct MCV 76 L D MCH 23 L MCHC RDW 17.8 H Plt Count Lymph % (Auto) Benzie % (Auto) Lymph # Benzie # Baso # Seg Neutrophils % Seg Neuts % (Manual) Lymphocytes % (Manual) Monocytes % (Manual) Eosinophils % (Manual) Basophils % (Manual) Nucleated RBC % Seg Neutrophils # Seg Neutrophils # Man Lymphocytes # (Manual) Monocytes # (Manual) Eosinophils # (Manual) Basophils # (Manual) PT INR Fibrinogen dRVVT Confirm Interp Factor V Activity POC ABG pH POC ABG pCO2 POC ABG pO2 ABG pO2 ABG HCO3 ABG Base Excess ABG Hemoglobin Oxyhemoglobin Sodium 134 L Potassium Chloride Carbon Dioxide 18 L BUN Creatinine 1.8 H Glucose 192 H POC Glucose 175 H Lactic Acid Calcium Ionized Calcium Phosphorus Magnesium Direct Bilirubin AST ALT Alkaline Phosphatase Lactate Dehydrogenase Troponin T C-Reactive Protein Total Protein Albumin Prealbumin Triglycerides Cholesterol LDL Cholesterol Direct HDL Cholesterol 25-OH Vitamin D Total PTH Intact Urine pH Urine WBC (Auto) Urine Creatinine Urine Total Protein Fluid Total Protein Vancomycin Trough Rheumatoid Factor Complement C4 Miscellaneous Test Crossmatch 09/05/16 09/05/16 09/05/16 11:38 17:48 23:22 WBC RBC Hgb Hct MCV MCH MCHC RDW Plt Count Lymph % (Auto) Benzie % (Auto) Lymph # Benzie # Baso # Seg Neutrophils % Seg Neuts % (Manual) Lymphocytes % (Manual) Monocytes % (Manual) Eosinophils % (Manual) Basophils % (Manual) Nucleated RBC % Seg Neutrophils # Seg Neutrophils # Man Lymphocytes # (Manual) Monocytes # (Manual) Eosinophils # (Manual) Basophils # (Manual) PT INR Fibrinogen dRVVT Confirm Interp Factor V Activity POC ABG pH POC ABG pCO2 POC ABG pO2 ABG pO2 ABG HCO3 ABG Base Excess ABG Hemoglobin Oxyhemoglobin Sodium Potassium Chloride Carbon Dioxide BUN Creatinine Glucose POC Glucose 164 H 186 H 195 H Lactic Acid Calcium Ionized Calcium Phosphorus Magnesium Direct Bilirubin AST ALT Alkaline Phosphatase Lactate Dehydrogenase Troponin T C-Reactive Protein Total Protein Albumin Prealbumin Triglycerides Cholesterol LDL Cholesterol Direct HDL Cholesterol 25-OH Vitamin D Total PTH Intact Urine pH Urine WBC (Auto) Urine Creatinine Urine Total Protein Fluid Total Protein Vancomycin Trough Rheumatoid Factor Complement C4 Miscellaneous Test Crossmatch 09/06/16 09/06/16 09/06/16 04:12 05:59 07:32 WBC RBC Hgb Hct MCV MCH MCHC RDW Plt Count Lymph % (Auto) Benzie % (Auto) Lymph # Benzie # Baso # Seg Neutrophils % Seg Neuts % (Manual) Lymphocytes % (Manual) Monocytes % (Manual) Eosinophils % (Manual) Basophils % (Manual) Nucleated RBC % Seg Neutrophils # Seg Neutrophils # Man Lymphocytes # (Manual) Monocytes # (Manual) Eosinophils # (Manual) Basophils # (Manual) PT INR Fibrinogen dRVVT Confirm Interp Factor V Activity POC ABG pH 7.514 H POC ABG pCO2 29.1 L POC ABG pO2 72 L ABG pO2 ABG HCO3 ABG Base Excess ABG Hemoglobin Oxyhemoglobin Sodium 133 L Potassium 3.4 L Chloride 94.9 L Carbon Dioxide 19 L BUN 30 H Creatinine 2.1 H Glucose 139 H POC Glucose 146 H Lactic Acid Calcium Ionized Calcium Phosphorus Magnesium Direct Bilirubin AST ALT Alkaline Phosphatase Lactate Dehydrogenase Troponin T C-Reactive Protein Total Protein Albumin Prealbumin Triglycerides Cholesterol LDL Cholesterol Direct HDL Cholesterol 25-OH Vitamin D Total PTH Intact Urine pH Urine WBC (Auto) Urine Creatinine Urine Total Protein Fluid Total Protein Vancomycin Trough Rheumatoid Factor Complement C4 Miscellaneous Test Crossmatch 09/06/16 09/06/16 09/06/16 11:57 17:58 19:02 WBC RBC Hgb Hct MCV MCH MCHC RDW Plt Count Lymph % (Auto) Benzie % (Auto) Lymph # Benzie # Baso # Seg Neutrophils % Seg Neuts % (Manual) Lymphocytes % (Manual) Monocytes % (Manual) Eosinophils % (Manual) Basophils % (Manual) Nucleated RBC % Seg Neutrophils # Seg Neutrophils # Man Lymphocytes # (Manual) Monocytes # (Manual) Eosinophils # (Manual) Basophils # (Manual) PT INR Fibrinogen dRVVT Confirm Interp Factor V Activity POC ABG pH 7.465 H POC ABG pCO2 32.0 L POC ABG pO2 ABG pO2 ABG HCO3 ABG Base Excess ABG Hemoglobin Oxyhemoglobin Sodium Potassium Chloride Carbon Dioxide BUN Creatinine Glucose POC Glucose 165 H 160 H Lactic Acid Calcium Ionized Calcium Phosphorus Magnesium Direct Bilirubin AST ALT Alkaline Phosphatase Lactate Dehydrogenase Troponin T C-Reactive Protein Total Protein Albumin Prealbumin Triglycerides Cholesterol LDL Cholesterol Direct HDL Cholesterol 25-OH Vitamin D Total PTH Intact Urine pH Urine WBC (Auto) Urine Creatinine Urine Total Protein Fluid Total Protein Vancomycin Trough Rheumatoid Factor Complement C4 Miscellaneous Test Crossmatch 09/06/16 09/07/16 09/07/16 23:45 02:47 02:47 WBC RBC Hgb Hct MCV MCH MCHC RDW Plt Count Lymph % (Auto) Benzie % (Auto) Lymph # Benzie # Baso # Seg Neutrophils % Seg Neuts % (Manual) Lymphocytes % (Manual) Monocytes % (Manual) Eosinophils % (Manual) Basophils % (Manual) Nucleated RBC % Seg Neutrophils # Seg Neutrophils # Man Lymphocytes # (Manual) Monocytes # (Manual) Eosinophils # (Manual) Basophils # (Manual) PT INR Fibrinogen dRVVT Confirm Interp Factor V Activity POC ABG pH POC ABG pCO2 POC ABG pO2 ABG pO2 ABG HCO3 ABG Base Excess ABG Hemoglobin Oxyhemoglobin Sodium Potassium Chloride Carbon Dioxide BUN Creatinine Glucose POC Glucose 204 H Lactic Acid Calcium Ionized Calcium Phosphorus Magnesium Direct Bilirubin AST ALT Alkaline Phosphatase Lactate Dehydrogenase Troponin T C-Reactive Protein Total Protein Albumin Prealbumin Triglycerides Cholesterol LDL Cholesterol Direct HDL Cholesterol 25-OH Vitamin D Total PTH Intact Urine pH Urine WBC (Auto) 68.0 H Urine Creatinine 106.1 H Urine Total Protein Fluid Total Protein Vancomycin Trough Rheumatoid Factor Complement C4 Miscellaneous Test Crossmatch 09/07/16 09/07/16 09/07/16 04:50 06:19 06:39 WBC RBC Hgb Hct MCV MCH MCHC RDW Plt Count Lymph % (Auto) Benzie % (Auto) Lymph # Benzie # Baso # Seg Neutrophils % Seg Neuts % (Manual) Lymphocytes % (Manual) Monocytes % (Manual) Eosinophils % (Manual) Basophils % (Manual) Nucleated RBC % Seg Neutrophils # Seg Neutrophils # Man Lymphocytes # (Manual) Monocytes # (Manual) Eosinophils # (Manual) Basophils # (Manual) PT INR Fibrinogen dRVVT Confirm Interp Factor V Activity POC ABG pH 7.457 H POC ABG pCO2 32.1 L POC ABG pO2 76 L ABG pO2 ABG HCO3 ABG Base Excess ABG Hemoglobin Oxyhemoglobin Sodium 132 L Potassium Chloride 94.7 L Carbon Dioxide BUN 53 H Creatinine 2.9 H Glucose 151 H POC Glucose 149 H Lactic Acid Calcium Ionized Calcium Phosphorus Magnesium Direct Bilirubin AST ALT Alkaline Phosphatase Lactate Dehydrogenase Troponin T C-Reactive Protein Total Protein Albumin Prealbumin Triglycerides Cholesterol LDL Cholesterol Direct HDL Cholesterol 25-OH Vitamin D Total PTH Intact Urine pH Urine WBC (Auto) Urine Creatinine Urine Total Protein Fluid Total Protein Vancomycin Trough Rheumatoid Factor Complement C4 Miscellaneous Test Crossmatch 09/07/16 09/07/16 09/07/16 09:20 11:43 11:43 WBC 19.4 H RBC Hgb 8.3 L Hct 26.4 L D MCV 72 L D MCH 22 L MCHC RDW 17.9 H Plt Count Lymph % (Auto) 8.5 L Benzie % (Auto) Lymph # Benzie # 1.0 H Baso # Seg Neutrophils % 85.8 H Seg Neuts % (Manual) Lymphocytes % (Manual) Monocytes % (Manual) Eosinophils % (Manual) Basophils % (Manual) Nucleated RBC % Seg Neutrophils # 16.6 H Seg Neutrophils # Man Lymphocytes # (Manual) Monocytes # (Manual) Eosinophils # (Manual) Basophils # (Manual) PT INR Fibrinogen dRVVT Confirm Interp Factor V Activity POC ABG pH POC ABG pCO2 POC ABG pO2 ABG pO2 ABG HCO3 ABG Base Excess ABG Hemoglobin Oxyhemoglobin Sodium 134 L Potassium Chloride 97.2 L Carbon Dioxide 20 L BUN 58 H Creatinine 2.9 H Glucose 147 H POC Glucose Lactic Acid Calcium Ionized Calcium Phosphorus 2.40 L Magnesium 2.40 H Direct Bilirubin AST ALT Alkaline Phosphatase Lactate Dehydrogenase Troponin T C-Reactive Protein Total Protein 5.8 L Albumin 2.2 L Prealbumin Triglycerides Cholesterol LDL Cholesterol Direct HDL Cholesterol 25-OH Vitamin D Total PTH Intact Urine pH Urine WBC (Auto) Urine Creatinine Urine Total Protein Fluid Total Protein Vancomycin Trough Rheumatoid Factor Complement C4 58 H Miscellaneous Test Crossmatch 09/07/16 09/07/16 09/07/16 11:50 16:00 17:31 WBC RBC Hgb Hct MCV MCH MCHC RDW Plt Count Lymph % (Auto) Benzie % (Auto) Lymph # Benzie # Baso # Seg Neutrophils % Seg Neuts % (Manual) Lymphocytes % (Manual) Monocytes % (Manual) Eosinophils % (Manual) Basophils % (Manual) Nucleated RBC % Seg Neutrophils # Seg Neutrophils # Man Lymphocytes # (Manual) Monocytes # (Manual) Eosinophils # (Manual) Basophils # (Manual) PT INR Fibrinogen dRVVT Confirm Interp Factor V Activity POC ABG pH POC ABG pCO2 POC ABG pO2 158 H ABG pO2 ABG HCO3 ABG Base Excess ABG Hemoglobin Oxyhemoglobin Sodium Potassium Chloride Carbon Dioxide BUN Creatinine Glucose POC Glucose 175 H Lactic Acid Calcium Ionized Calcium Phosphorus Magnesium Direct Bilirubin AST ALT Alkaline Phosphatase Lactate Dehydrogenase Troponin T C-Reactive Protein Total Protein Albumin Prealbumin Triglycerides Cholesterol LDL Cholesterol Direct HDL Cholesterol 25-OH Vitamin D Total PTH Intact Urine pH Urine WBC (Auto) Urine Creatinine 66.3 H Urine Total Protein Fluid Total Protein Vancomycin Trough Rheumatoid Factor Complement C4 Miscellaneous Test Crossmatch 09/07/16 09/08/16 09/08/16 23:50 05:46 06:18 WBC 17.8 H RBC 3.58 L Hgb 8.1 L Hct 25.5 L MCV 71 L MCH 23 L MCHC RDW 18.4 H Plt Count Lymph % (Auto) Benzie % (Auto) Lymph # Benzie # Baso # Seg Neutrophils % Seg Neuts % (Manual) 92.0 H Lymphocytes % (Manual) 6.0 L Monocytes % (Manual) Eosinophils % (Manual) Basophils % (Manual) Nucleated RBC % Seg Neutrophils # Seg Neutrophils # Man 16.4 H Lymphocytes # (Manual) 1.1 L Monocytes # (Manual) Eosinophils # (Manual) Basophils # (Manual) PT INR Fibrinogen dRVVT Confirm Interp Factor V Activity POC ABG pH POC ABG pCO2 34.3 L POC ABG pO2 71 L ABG pO2 ABG HCO3 ABG Base Excess ABG Hemoglobin Oxyhemoglobin Sodium Potassium Chloride Carbon Dioxide BUN Creatinine Glucose POC Glucose 216 H Lactic Acid Calcium Ionized Calcium Phosphorus Magnesium Direct Bilirubin AST ALT Alkaline Phosphatase Lactate Dehydrogenase Troponin T C-Reactive Protein Total Protein Albumin Prealbumin Triglycerides Cholesterol LDL Cholesterol Direct HDL Cholesterol 25-OH Vitamin D Total PTH Intact Urine pH Urine WBC (Auto) Urine Creatinine Urine Total Protein Fluid Total Protein Vancomycin Trough Rheumatoid Factor Complement C4 Miscellaneous Test Crossmatch 09/08/16 09/08/16 09/08/16 06:18 06:51 10:55 WBC RBC Hgb Hct MCV MCH MCHC RDW Plt Count Lymph % (Auto) Benzie % (Auto) Lymph # Benzie # Baso # Seg Neutrophils % Seg Neuts % (Manual) Lymphocytes % (Manual) Monocytes % (Manual) Eosinophils % (Manual) Basophils % (Manual) Nucleated RBC % Seg Neutrophils # Seg Neutrophils # Man Lymphocytes # (Manual) Monocytes # (Manual) Eosinophils # (Manual) Basophils # (Manual) PT INR Fibrinogen dRVVT Confirm Interp Factor V Activity POC ABG pH POC ABG pCO2 POC ABG pO2 ABG pO2 ABG HCO3 ABG Base Excess ABG Hemoglobin Oxyhemoglobin Sodium 133 L Potassium Chloride 96.9 L Carbon Dioxide 20 L BUN 63 H Creatinine 2.7 H Glucose 195 H POC Glucose 204 H 169 H Lactic Acid Calcium Ionized Calcium Phosphorus Magnesium Direct Bilirubin AST ALT Alkaline Phosphatase Lactate Dehydrogenase Troponin T C-Reactive Protein Total Protein Albumin Prealbumin Triglycerides Cholesterol LDL Cholesterol Direct HDL Cholesterol 25-OH Vitamin D Total PTH Intact Urine pH Urine WBC (Auto) Urine Creatinine Urine Total Protein Fluid Total Protein Vancomycin Trough Rheumatoid Factor Complement C4 Miscellaneous Test Crossmatch 09/08/16 09/08/16 09/08/16 11:48 11:48 11:48 WBC RBC Hgb Hct MCV MCH MCHC RDW Plt Count Lymph % (Auto) Benzie % (Auto) Lymph # Benzie # Baso # Seg Neutrophils % Seg Neuts % (Manual) Lymphocytes % (Manual) Monocytes % (Manual) Eosinophils % (Manual) Basophils % (Manual) Nucleated RBC % Seg Neutrophils # Seg Neutrophils # Man Lymphocytes # (Manual) Monocytes # (Manual) Eosinophils # (Manual) Basophils # (Manual) PT INR Fibrinogen 750 H dRVVT Confirm Interp Factor V Activity POC ABG pH POC ABG pCO2 POC ABG pO2 ABG pO2 ABG HCO3 ABG Base Excess ABG Hemoglobin Oxyhemoglobin Sodium Potassium Chloride Carbon Dioxide BUN Creatinine Glucose POC Glucose Lactic Acid Calcium Ionized Calcium Phosphorus Magnesium Direct Bilirubin AST ALT Alkaline Phosphatase Lactate Dehydrogenase Troponin T C-Reactive Protein 15.70 H Total Protein Albumin Prealbumin Triglycerides Cholesterol LDL Cholesterol Direct HDL Cholesterol 25-OH Vitamin D Total PTH Intact Urine pH Urine WBC (Auto) Urine Creatinine Urine Total Protein Fluid Total Protein Vancomycin Trough Rheumatoid Factor 24 H Complement C4 Miscellaneous Test Crossmatch 09/08/16 09/08/16 09/09/16 15:35 18:25 00:24 WBC RBC Hgb Hct MCV MCH MCHC RDW Plt Count Lymph % (Auto) Benzie % (Auto) Lymph # Benzie # Baso # Seg Neutrophils % Seg Neuts % (Manual) Lymphocytes % (Manual) Monocytes % (Manual) Eosinophils % (Manual) Basophils % (Manual) Nucleated RBC % Seg Neutrophils # Seg Neutrophils # Man Lymphocytes # (Manual) Monocytes # (Manual) Eosinophils # (Manual) Basophils # (Manual) PT INR Fibrinogen dRVVT Confirm Interp Factor V Activity 182 H POC ABG pH POC ABG pCO2 POC ABG pO2 ABG pO2 ABG HCO3 ABG Base Excess ABG Hemoglobin Oxyhemoglobin Sodium Potassium Chloride Carbon Dioxide BUN Creatinine Glucose POC Glucose 184 H 216 H Lactic Acid Calcium Ionized Calcium Phosphorus Magnesium Direct Bilirubin AST ALT Alkaline Phosphatase Lactate Dehydrogenase Troponin T C-Reactive Protein Total Protein Albumin Prealbumin Triglycerides Cholesterol LDL Cholesterol Direct HDL Cholesterol 25-OH Vitamin D Total PTH Intact Urine pH Urine WBC (Auto) Urine Creatinine Urine Total Protein Fluid Total Protein Vancomycin Trough Rheumatoid Factor Complement C4 Miscellaneous Test Crossmatch 09/09/16 09/09/16 09/09/16 03:00 03:00 04:04 WBC 27.9 H RBC Hgb 8.7 L Hct 28.1 L MCV 72 L MCH 22 L MCHC RDW 18.4 H Plt Count 485 H Lymph % (Auto) Benzie % (Auto) Lymph # Benzie # Baso # Seg Neutrophils % Seg Neuts % (Manual) 77.0 H Lymphocytes % (Manual) 9.0 L Monocytes % (Manual) Eosinophils % (Manual) Basophils % (Manual) Nucleated RBC % Seg Neutrophils # Seg Neutrophils # Man 21.5 H Lymphocytes # (Manual) Monocytes # (Manual) 2.0 H Eosinophils # (Manual) Basophils # (Manual) PT INR Fibrinogen dRVVT Confirm Interp Factor V Activity POC ABG pH POC ABG pCO2 POC ABG pO2 121 H ABG pO2 ABG HCO3 ABG Base Excess ABG Hemoglobin Oxyhemoglobin Sodium 135 L Potassium Chloride 96.3 L Carbon Dioxide 21 L BUN 83 H Creatinine 3.0 H Glucose 135 H POC Glucose Lactic Acid Calcium Ionized Calcium Phosphorus Magnesium Direct Bilirubin AST ALT Alkaline Phosphatase Lactate Dehydrogenase Troponin T C-Reactive Protein Total Protein Albumin Prealbumin Triglycerides Cholesterol LDL Cholesterol Direct HDL Cholesterol 25-OH Vitamin D Total PTH Intact Urine pH Urine WBC (Auto) Urine Creatinine Urine Total Protein Fluid Total Protein Vancomycin Trough Rheumatoid Factor Complement C4 Miscellaneous Test Crossmatch 09/09/16 09/09/16 09/09/16 05:41 11:55 14:13 WBC RBC Hgb Hct MCV MCH MCHC RDW Plt Count Lymph % (Auto) Benzie % (Auto) Lymph # Benzie # Baso # Seg Neutrophils % Seg Neuts % (Manual) Lymphocytes % (Manual) Monocytes % (Manual) Eosinophils % (Manual) Basophils % (Manual) Nucleated RBC % Seg Neutrophils # Seg Neutrophils # Man Lymphocytes # (Manual) Monocytes # (Manual) Eosinophils # (Manual) Basophils # (Manual) PT INR Fibrinogen dRVVT Confirm Interp Factor V Activity POC ABG pH POC ABG pCO2 POC ABG pO2 ABG pO2 ABG HCO3 ABG Base Excess ABG Hemoglobin Oxyhemoglobin Sodium Potassium Chloride Carbon Dioxide BUN Creatinine Glucose POC Glucose 155 H 186 H Lactic Acid Calcium Ionized Calcium Phosphorus Magnesium Direct Bilirubin AST ALT Alkaline Phosphatase Lactate Dehydrogenase Troponin T C-Reactive Protein Total Protein Albumin Prealbumin Triglycerides Cholesterol LDL Cholesterol Direct HDL Cholesterol 25-OH Vitamin D Total PTH Intact Urine pH Urine WBC (Auto) 25.0 H Urine Creatinine Urine Total Protein Fluid Total Protein Vancomycin Trough Rheumatoid Factor Complement C4 Miscellaneous Test Crossmatch 09/09/16 09/09/16 09/10/16 17:33 23:13 05:09 WBC RBC Hgb Hct MCV MCH MCHC RDW Plt Count Lymph % (Auto) Benzie % (Auto) Lymph # Benzie # Baso # Seg Neutrophils % Seg Neuts % (Manual) Lymphocytes % (Manual) Monocytes % (Manual) Eosinophils % (Manual) Basophils % (Manual) Nucleated RBC % Seg Neutrophils # Seg Neutrophils # Man Lymphocytes # (Manual) Monocytes # (Manual) Eosinophils # (Manual) Basophils # (Manual) PT INR Fibrinogen dRVVT Confirm Interp Factor V Activity POC ABG pH POC ABG pCO2 POC ABG pO2 74 L ABG pO2 ABG HCO3 ABG Base Excess ABG Hemoglobin Oxyhemoglobin Sodium Potassium Chloride Carbon Dioxide BUN Creatinine Glucose POC Glucose 211 H 215 H Lactic Acid Calcium Ionized Calcium Phosphorus Magnesium Direct Bilirubin AST ALT Alkaline Phosphatase Lactate Dehydrogenase Troponin T C-Reactive Protein Total Protein Albumin Prealbumin Triglycerides Cholesterol LDL Cholesterol Direct HDL Cholesterol 25-OH Vitamin D Total PTH Intact Urine pH Urine WBC (Auto) Urine Creatinine Urine Total Protein Fluid Total Protein Vancomycin Trough Rheumatoid Factor Complement C4 Miscellaneous Test Crossmatch 09/10/16 09/10/16 09/10/16 05:17 05:17 11:31 WBC 15.8 H RBC 3.25 L Hgb 7.3 L Hct 22.9 L MCV 71 L MCH 23 L MCHC RDW 18.4 H Plt Count Lymph % (Auto) Benzie % (Auto) Lymph # Benzie # Baso # Seg Neutrophils % Seg Neuts % (Manual) 91.0 H Lymphocytes % (Manual) 4.0 L Monocytes % (Manual) Eosinophils % (Manual) Basophils % (Manual) Nucleated RBC % Seg Neutrophils # Seg Neutrophils # Man 14.4 H Lymphocytes # (Manual) 0.6 L Monocytes # (Manual) Eosinophils # (Manual) Basophils # (Manual) PT INR Fibrinogen dRVVT Confirm Interp Factor V Activity POC ABG pH POC ABG pCO2 POC ABG pO2 ABG pO2 ABG HCO3 ABG Base Excess ABG Hemoglobin Oxyhemoglobin Sodium Potassium Chloride Carbon Dioxide 21 L BUN 93 H Creatinine 2.9 H Glucose 146 H POC Glucose 188 H Lactic Acid Calcium 8.1 L Ionized Calcium Phosphorus Magnesium Direct Bilirubin AST ALT Alkaline Phosphatase Lactate Dehydrogenase Troponin T C-Reactive Protein Total Protein Albumin Prealbumin Triglycerides Cholesterol LDL Cholesterol Direct HDL Cholesterol 25-OH Vitamin D Total PTH Intact Urine pH Urine WBC (Auto) Urine Creatinine Urine Total Protein Fluid Total Protein Vancomycin Trough Rheumatoid Factor Complement C4 Miscellaneous Test Crossmatch 09/10/16 09/10/16 09/10/16 13:17 17:20 23:32 WBC RBC Hgb Hct MCV MCH MCHC RDW Plt Count Lymph % (Auto) Benzie % (Auto) Lymph # Benzie # Baso # Seg Neutrophils % Seg Neuts % (Manual) Lymphocytes % (Manual) Monocytes % (Manual) Eosinophils % (Manual) Basophils % (Manual) Nucleated RBC % Seg Neutrophils # Seg Neutrophils # Man Lymphocytes # (Manual) Monocytes # (Manual) Eosinophils # (Manual) Basophils # (Manual) PT INR Fibrinogen dRVVT Confirm Interp Factor V Activity POC ABG pH POC ABG pCO2 POC ABG pO2 ABG pO2 ABG HCO3 ABG Base Excess ABG Hemoglobin Oxyhemoglobin Sodium Potassium Chloride Carbon Dioxide BUN Creatinine Glucose POC Glucose 199 H 186 H Lactic Acid Calcium Ionized Calcium Phosphorus Magnesium Direct Bilirubin AST ALT Alkaline Phosphatase Lactate Dehydrogenase Troponin T C-Reactive Protein Total Protein Albumin Prealbumin Triglycerides Cholesterol LDL Cholesterol Direct HDL Cholesterol 25-OH Vitamin D Total PTH Intact Urine pH Urine WBC (Auto) Urine Creatinine Urine Total Protein Fluid Total Protein Vancomycin Trough Rheumatoid Factor Complement C4 Miscellaneous Test Crossmatch See Detail 09/11/16 09/11/16 09/11/16 05:10 05:10 05:17 WBC 28.4 H RBC Hgb 9.2 L Hct 29.3 L D MCV 73 L MCH 23 L MCHC RDW 18.9 H Plt Count 452 H Lymph % (Auto) Benzie % (Auto) Lymph # Benzie # Baso # Seg Neutrophils % Seg Neuts % (Manual) 89.5 H Lymphocytes % (Manual) 2.0 L Monocytes % (Manual) Eosinophils % (Manual) Basophils % (Manual) Nucleated RBC % Seg Neutrophils # Seg Neutrophils # Man 25.4 H Lymphocytes # (Manual) 0.6 L Monocytes # (Manual) 1.3 H Eosinophils # (Manual) Basophils # (Manual) PT INR Fibrinogen dRVVT Confirm Interp Factor V Activity POC ABG pH POC ABG pCO2 POC ABG pO2 ABG pO2 ABG HCO3 ABG Base Excess ABG Hemoglobin Oxyhemoglobin Sodium 136 L Potassium Chloride Carbon Dioxide 18 L BUN 107 H Creatinine 2.6 H Glucose 187 H POC Glucose 230 H Lactic Acid Calcium 8.3 L Ionized Calcium Phosphorus Magnesium Direct Bilirubin AST ALT Alkaline Phosphatase Lactate Dehydrogenase Troponin T C-Reactive Protein Total Protein Albumin Prealbumin Triglycerides Cholesterol LDL Cholesterol Direct HDL Cholesterol 25-OH Vitamin D Total PTH Intact Urine pH Urine WBC (Auto) Urine Creatinine Urine Total Protein Fluid Total Protein Vancomycin Trough Rheumatoid Factor Complement C4 Miscellaneous Test Crossmatch 09/11/16 09/11/16 09/11/16 05:55 12:02 17:32 WBC RBC Hgb Hct MCV MCH MCHC RDW Plt Count Lymph % (Auto) Benzie % (Auto) Lymph # Benzie # Baso # Seg Neutrophils % Seg Neuts % (Manual) Lymphocytes % (Manual) Monocytes % (Manual) Eosinophils % (Manual) Basophils % (Manual) Nucleated RBC % Seg Neutrophils # Seg Neutrophils # Man Lymphocytes # (Manual) Monocytes # (Manual) Eosinophils # (Manual) Basophils # (Manual) PT INR Fibrinogen dRVVT Confirm Interp Factor V Activity POC ABG pH POC ABG pCO2 33.8 L POC ABG pO2 ABG pO2 ABG HCO3 ABG Base Excess ABG Hemoglobin Oxyhemoglobin Sodium Potassium Chloride Carbon Dioxide BUN Creatinine Glucose POC Glucose 191 H 239 H Lactic Acid Calcium Ionized Calcium Phosphorus Magnesium Direct Bilirubin AST ALT Alkaline Phosphatase Lactate Dehydrogenase Troponin T C-Reactive Protein Total Protein Albumin Prealbumin Triglycerides Cholesterol LDL Cholesterol Direct HDL Cholesterol 25-OH Vitamin D Total PTH Intact Urine pH Urine WBC (Auto) Urine Creatinine Urine Total Protein Fluid Total Protein Vancomycin Trough Rheumatoid Factor Complement C4 Miscellaneous Test Crossmatch 09/11/16 09/12/16 09/12/16 23:52 05:09 05:32 WBC RBC Hgb Hct MCV MCH MCHC RDW Plt Count Lymph % (Auto) Benzie % (Auto) Lymph # Benzie # Baso # Seg Neutrophils % Seg Neuts % (Manual) Lymphocytes % (Manual) Monocytes % (Manual) Eosinophils % (Manual) Basophils % (Manual) Nucleated RBC % Seg Neutrophils # Seg Neutrophils # Man Lymphocytes # (Manual) Monocytes # (Manual) Eosinophils # (Manual) Basophils # (Manual) PT INR Fibrinogen dRVVT Confirm Interp Factor V Activity POC ABG pH POC ABG pCO2 34.6 L POC ABG pO2 ABG pO2 ABG HCO3 ABG Base Excess ABG Hemoglobin Oxyhemoglobin Sodium Potassium Chloride Carbon Dioxide BUN Creatinine Glucose POC Glucose 265 H 184 H Lactic Acid Calcium Ionized Calcium Phosphorus Magnesium Direct Bilirubin AST ALT Alkaline Phosphatase Lactate Dehydrogenase Troponin T C-Reactive Protein Total Protein Albumin Prealbumin Triglycerides Cholesterol LDL Cholesterol Direct HDL Cholesterol 25-OH Vitamin D Total PTH Intact Urine pH Urine WBC (Auto) Urine Creatinine Urine Total Protein Fluid Total Protein Vancomycin Trough Rheumatoid Factor Complement C4 Miscellaneous Test Crossmatch 09/12/16 09/12/16 09/12/16 06:45 06:45 07:22 WBC 31.7 H RBC 3.54 L Hgb 8.3 L Hct 25.9 L MCV 73 L MCH 23 L MCHC RDW 18.9 H Plt Count Lymph % (Auto) Benzie % (Auto) Lymph # Benzie # Baso # Seg Neutrophils % Seg Neuts % (Manual) 88.5 H Lymphocytes % (Manual) 4.5 L Monocytes % (Manual) Eosinophils % (Manual) Basophils % (Manual) Nucleated RBC % Seg Neutrophils # Seg Neutrophils # Man 28.1 H Lymphocytes # (Manual) Monocytes # (Manual) 1.0 H Eosinophils # (Manual) Basophils # (Manual) PT INR Fibrinogen dRVVT Confirm Interp Factor V Activity POC ABG pH POC ABG pCO2 POC ABG pO2 ABG pO2 ABG HCO3 ABG Base Excess ABG Hemoglobin Oxyhemoglobin Sodium Potassium Chloride Carbon Dioxide 20 L BUN 115 H Creatinine 2.7 H Glucose 165 H POC Glucose Lactic Acid Calcium 8.0 L Ionized Calcium Phosphorus Magnesium Direct Bilirubin AST ALT Alkaline Phosphatase Lactate Dehydrogenase Troponin T C-Reactive Protein Total Protein Albumin Prealbumin Triglycerides 217 H Cholesterol LDL Cholesterol Direct HDL Cholesterol 25-OH Vitamin D Total PTH Intact Urine pH Urine WBC (Auto) Urine Creatinine Urine Total Protein Fluid Total Protein Vancomycin Trough Rheumatoid Factor Complement C4 Miscellaneous Test Crossmatch 09/12/16 09/12/16 09/12/16 07:22 09:59 12:21 WBC RBC Hgb Hct MCV MCH MCHC RDW Plt Count Lymph % (Auto) Benzie % (Auto) Lymph # Benzie # Baso # Seg Neutrophils % Seg Neuts % (Manual) Lymphocytes % (Manual) Monocytes % (Manual) Eosinophils % (Manual) Basophils % (Manual) Nucleated RBC % Seg Neutrophils # Seg Neutrophils # Man Lymphocytes # (Manual) Monocytes # (Manual) Eosinophils # (Manual) Basophils # (Manual) PT INR Fibrinogen dRVVT Confirm Interp Positive H Factor V Activity POC ABG pH POC ABG pCO2 POC ABG pO2 ABG pO2 ABG HCO3 ABG Base Excess ABG Hemoglobin Oxyhemoglobin Sodium Potassium Chloride Carbon Dioxide BUN Creatinine Glucose POC Glucose 224 H Lactic Acid Calcium Ionized Calcium Phosphorus Magnesium Direct Bilirubin AST ALT Alkaline Phosphatase Lactate Dehydrogenase Troponin T C-Reactive Protein 1.70 H Total Protein Albumin Prealbumin Triglycerides Cholesterol LDL Cholesterol Direct HDL Cholesterol 25-OH Vitamin D Total PTH Intact Urine pH Urine WBC (Auto) Urine Creatinine Urine Total Protein Fluid Total Protein Vancomycin Trough Rheumatoid Factor Complement C4 Miscellaneous Test Crossmatch 09/12/16 09/12/16 09/13/16 16:51 23:28 04:00 WBC 45.0 H* RBC Hgb 9.4 L Hct MCV 75 L MCH 23 L MCHC RDW 19.0 H Plt Count 470 H Lymph % (Auto) Benzie % (Auto) Lymph # Benzie # Baso # Seg Neutrophils % Seg Neuts % (Manual) 89.0 H Lymphocytes % (Manual) 5.0 L Monocytes % (Manual) Eosinophils % (Manual) Basophils % (Manual) Nucleated RBC % Seg Neutrophils # Seg Neutrophils # Man 40.1 H Lymphocytes # (Manual) Monocytes # (Manual) Eosinophils # (Manual) Basophils # (Manual) PT INR Fibrinogen dRVVT Confirm Interp Factor V Activity POC ABG pH POC ABG pCO2 POC ABG pO2 ABG pO2 ABG HCO3 ABG Base Excess ABG Hemoglobin Oxyhemoglobin Sodium Potassium Chloride Carbon Dioxide BUN Creatinine Glucose POC Glucose 169 H 150 H Lactic Acid Calcium Ionized Calcium Phosphorus Magnesium Direct Bilirubin AST ALT Alkaline Phosphatase Lactate Dehydrogenase Troponin T C-Reactive Protein Total Protein Albumin Prealbumin Triglycerides Cholesterol LDL Cholesterol Direct HDL Cholesterol 25-OH Vitamin D Total PTH Intact Urine pH Urine WBC (Auto) Urine Creatinine Urine Total Protein Fluid Total Protein Vancomycin Trough Rheumatoid Factor Complement C4 Miscellaneous Test Crossmatch 09/13/16 09/13/16 09/13/16 04:00 11:26 17:31 WBC RBC Hgb Hct MCV MCH MCHC RDW Plt Count Lymph % (Auto) Benzie % (Auto) Lymph # Benzie # Baso # Seg Neutrophils % Seg Neuts % (Manual) Lymphocytes % (Manual) Monocytes % (Manual) Eosinophils % (Manual) Basophils % (Manual) Nucleated RBC % Seg Neutrophils # Seg Neutrophils # Man Lymphocytes # (Manual) Monocytes # (Manual) Eosinophils # (Manual) Basophils # (Manual) PT INR Fibrinogen dRVVT Confirm Interp Factor V Activity POC ABG pH POC ABG pCO2 POC ABG pO2 ABG pO2 ABG HCO3 ABG Base Excess ABG Hemoglobin Oxyhemoglobin Sodium Potassium Chloride Carbon Dioxide 20 L BUN 116 H Creatinine 3.0 H Glucose 172 H POC Glucose 140 H 183 H Lactic Acid Calcium Ionized Calcium Phosphorus Magnesium Direct Bilirubin AST ALT Alkaline Phosphatase Lactate Dehydrogenase Troponin T C-Reactive Protein Total Protein 6.2 L Albumin 2.9 L Prealbumin Triglycerides Cholesterol LDL Cholesterol Direct HDL Cholesterol 25-OH Vitamin D Total PTH Intact Urine pH Urine WBC (Auto) Urine Creatinine Urine Total Protein Fluid Total Protein Vancomycin Trough Rheumatoid Factor Complement C4 Miscellaneous Test Crossmatch 09/13/16 09/14/16 09/14/16 23:23 04:06 04:07 WBC 29.4 H RBC Hgb 8.9 L Hct 27.3 L MCV 75 L MCH 24 L MCHC RDW 19.1 H Plt Count Lymph % (Auto) Benzie % (Auto) Lymph # Benzie # Baso # Seg Neutrophils % Seg Neuts % (Manual) 84.0 H Lymphocytes % (Manual) 6.0 L Monocytes % (Manual) 9.0 H Eosinophils % (Manual) Basophils % (Manual) Nucleated RBC % Seg Neutrophils # Seg Neutrophils # Man 24.7 H Lymphocytes # (Manual) Monocytes # (Manual) 2.6 H Eosinophils # (Manual) Basophils # (Manual) PT INR Fibrinogen dRVVT Confirm Interp Factor V Activity POC ABG pH 7.342 L POC ABG pCO2 POC ABG pO2 116 H ABG pO2 ABG HCO3 ABG Base Excess ABG Hemoglobin Oxyhemoglobin Sodium Potassium Chloride Carbon Dioxide BUN Creatinine Glucose POC Glucose 154 H Lactic Acid Calcium Ionized Calcium Phosphorus Magnesium Direct Bilirubin AST ALT Alkaline Phosphatase Lactate Dehydrogenase Troponin T C-Reactive Protein Total Protein Albumin Prealbumin Triglycerides Cholesterol LDL Cholesterol Direct HDL Cholesterol 25-OH Vitamin D Total PTH Intact Urine pH Urine WBC (Auto) Urine Creatinine Urine Total Protein Fluid Total Protein Vancomycin Trough Rheumatoid Factor Complement C4 Miscellaneous Test Crossmatch 09/14/16 09/14/16 09/14/16 04:07 05:29 12:19 WBC RBC Hgb Hct MCV MCH MCHC RDW Plt Count Lymph % (Auto) Benzie % (Auto) Lymph # Benzie # Baso # Seg Neutrophils % Seg Neuts % (Manual) Lymphocytes % (Manual) Monocytes % (Manual) Eosinophils % (Manual) Basophils % (Manual) Nucleated RBC % Seg Neutrophils # Seg Neutrophils # Man Lymphocytes # (Manual) Monocytes # (Manual) Eosinophils # (Manual) Basophils # (Manual) PT INR Fibrinogen dRVVT Confirm Interp Factor V Activity POC ABG pH POC ABG pCO2 POC ABG pO2 ABG pO2 ABG HCO3 ABG Base Excess ABG Hemoglobin Oxyhemoglobin Sodium 136 L Potassium Chloride Carbon Dioxide 18 L BUN 121 H Creatinine 2.8 H Glucose 214 H POC Glucose 239 H 181 H Lactic Acid Calcium Ionized Calcium Phosphorus Magnesium Direct Bilirubin AST ALT Alkaline Phosphatase Lactate Dehydrogenase Troponin T C-Reactive Protein Total Protein Albumin Prealbumin Triglycerides Cholesterol LDL Cholesterol Direct HDL Cholesterol 25-OH Vitamin D Total PTH Intact Urine pH Urine WBC (Auto) Urine Creatinine Urine Total Protein Fluid Total Protein Vancomycin Trough Rheumatoid Factor Complement C4 Miscellaneous Test Crossmatch 09/14/16 09/14/16 09/15/16 18:12 23:37 05:00 WBC 26.1 H RBC 3.05 L Hgb 7.2 L Hct 22.9 L MCV 75 L MCH 24 L MCHC RDW 19.0 H Plt Count Lymph % (Auto) Benzie % (Auto) Lymph # Benzie # Baso # Seg Neutrophils % Seg Neuts % (Manual) Lymphocytes % (Manual) Monocytes % (Manual) Eosinophils % (Manual) Basophils % (Manual) Nucleated RBC % Seg Neutrophils # Seg Neutrophils # Man Lymphocytes # (Manual) Monocytes # (Manual) Eosinophils # (Manual) Basophils # (Manual) PT INR Fibrinogen dRVVT Confirm Interp Factor V Activity POC ABG pH POC ABG pCO2 POC ABG pO2 ABG pO2 ABG HCO3 ABG Base Excess ABG Hemoglobin Oxyhemoglobin Sodium Potassium Chloride Carbon Dioxide BUN Creatinine Glucose POC Glucose 266 H 154 H Lactic Acid Calcium Ionized Calcium Phosphorus Magnesium Direct Bilirubin AST ALT Alkaline Phosphatase Lactate Dehydrogenase Troponin T C-Reactive Protein Total Protein Albumin Prealbumin Triglycerides Cholesterol LDL Cholesterol Direct HDL Cholesterol 25-OH Vitamin D Total PTH Intact Urine pH Urine WBC (Auto) Urine Creatinine Urine Total Protein Fluid Total Protein Vancomycin Trough Rheumatoid Factor Complement C4 Miscellaneous Test Crossmatch 09/15/16 09/15/16 09/15/16 05:00 05:17 12:45 WBC RBC Hgb Hct MCV MCH MCHC RDW Plt Count Lymph % (Auto) Benzie % (Auto) Lymph # Benzie # Baso # Seg Neutrophils % Seg Neuts % (Manual) Lymphocytes % (Manual) Monocytes % (Manual) Eosinophils % (Manual) Basophils % (Manual) Nucleated RBC % Seg Neutrophils # Seg Neutrophils # Man Lymphocytes # (Manual) Monocytes # (Manual) Eosinophils # (Manual) Basophils # (Manual) PT INR Fibrinogen dRVVT Confirm Interp Factor V Activity POC ABG pH POC ABG pCO2 POC ABG pO2 ABG pO2 ABG HCO3 ABG Base Excess ABG Hemoglobin Oxyhemoglobin Sodium Potassium 5.2 H Chloride Carbon Dioxide 18 L BUN 139 H Creatinine 3.7 H Glucose 227 H POC Glucose 226 H 244 H Lactic Acid Calcium 8.3 L Ionized Calcium Phosphorus Magnesium Direct Bilirubin AST ALT Alkaline Phosphatase Lactate Dehydrogenase Troponin T C-Reactive Protein Total Protein Albumin Prealbumin Triglycerides Cholesterol LDL Cholesterol Direct HDL Cholesterol 25-OH Vitamin D Total PTH Intact Urine pH Urine WBC (Auto) Urine Creatinine Urine Total Protein Fluid Total Protein Vancomycin Trough Rheumatoid Factor Complement C4 Miscellaneous Test Crossmatch 09/15/16 09/15/16 09/15/16 14:32 17:33 23:35 WBC RBC Hgb Hct MCV MCH MCHC RDW Plt Count Lymph % (Auto) Benzie % (Auto) Lymph # Benzie # Baso # Seg Neutrophils % Seg Neuts % (Manual) Lymphocytes % (Manual) Monocytes % (Manual) Eosinophils % (Manual) Basophils % (Manual) Nucleated RBC % Seg Neutrophils # Seg Neutrophils # Man Lymphocytes # (Manual) Monocytes # (Manual) Eosinophils # (Manual) Basophils # (Manual) PT INR Fibrinogen dRVVT Confirm Interp Factor V Activity POC ABG pH POC ABG pCO2 27.7 L POC ABG pO2 120 H ABG pO2 ABG HCO3 ABG Base Excess ABG Hemoglobin Oxyhemoglobin Sodium Potassium Chloride Carbon Dioxide BUN Creatinine Glucose POC Glucose 232 H 167 H Lactic Acid Calcium Ionized Calcium Phosphorus Magnesium Direct Bilirubin AST ALT Alkaline Phosphatase Lactate Dehydrogenase Troponin T C-Reactive Protein Total Protein Albumin Prealbumin Triglycerides Cholesterol LDL Cholesterol Direct HDL Cholesterol 25-OH Vitamin D Total PTH Intact Urine pH Urine WBC (Auto) Urine Creatinine Urine Total Protein Fluid Total Protein Vancomycin Trough Rheumatoid Factor Complement C4 Miscellaneous Test Crossmatch 09/16/16 09/16/16 09/16/16 03:58 10:27 10:27 WBC 19.0 H RBC 2.77 L Hgb 6.5 L Hct 20.9 L MCV 76 L MCH 23 L MCHC RDW 19.3 H Plt Count Lymph % (Auto) 11.0 L Benzie % (Auto) Lymph # Benzie # 1.1 H Baso # Seg Neutrophils % 82.5 H Seg Neuts % (Manual) Lymphocytes % (Manual) Monocytes % (Manual) Eosinophils % (Manual) Basophils % (Manual) Nucleated RBC % Seg Neutrophils # 15.7 H Seg Neutrophils # Man Lymphocytes # (Manual) Monocytes # (Manual) Eosinophils # (Manual) Basophils # (Manual) PT INR Fibrinogen dRVVT Confirm Interp Factor V Activity POC ABG pH POC ABG pCO2 POC ABG pO2 ABG pO2 ABG HCO3 ABG Base Excess ABG Hemoglobin Oxyhemoglobin Sodium Potassium Chloride 109.3 H Carbon Dioxide 18 L BUN 139 H Creatinine 4.1 H Glucose 144 H POC Glucose 146 H Lactic Acid Calcium 8.1 L Ionized Calcium Phosphorus Magnesium Direct Bilirubin AST ALT Alkaline Phosphatase Lactate Dehydrogenase Troponin T C-Reactive Protein Total Protein Albumin Prealbumin Triglycerides Cholesterol LDL Cholesterol Direct HDL Cholesterol 25-OH Vitamin D Total PTH Intact Urine pH Urine WBC (Auto) Urine Creatinine Urine Total Protein Fluid Total Protein Vancomycin Trough Rheumatoid Factor Complement C4 Miscellaneous Test Crossmatch 09/16/16 09/16/16 09/16/16 12:04 12:10 13:55 WBC RBC Hgb Hct MCV MCH MCHC RDW Plt Count Lymph % (Auto) Benzie % (Auto) Lymph # Benzie # Baso # Seg Neutrophils % Seg Neuts % (Manual) Lymphocytes % (Manual) Monocytes % (Manual) Eosinophils % (Manual) Basophils % (Manual) Nucleated RBC % Seg Neutrophils # Seg Neutrophils # Man Lymphocytes # (Manual) Monocytes # (Manual) Eosinophils # (Manual) Basophils # (Manual) PT INR Fibrinogen dRVVT Confirm Interp Factor V Activity POC ABG pH POC ABG pCO2 32.9 L POC ABG pO2 ABG pO2 ABG HCO3 ABG Base Excess ABG Hemoglobin Oxyhemoglobin Sodium Potassium Chloride Carbon Dioxide BUN Creatinine Glucose POC Glucose 185 H Lactic Acid Calcium Ionized Calcium Phosphorus Magnesium Direct Bilirubin AST ALT Alkaline Phosphatase Lactate Dehydrogenase Troponin T C-Reactive Protein Total Protein Albumin Prealbumin Triglycerides Cholesterol LDL Cholesterol Direct HDL Cholesterol 25-OH Vitamin D Total PTH Intact Urine pH Urine WBC (Auto) Urine Creatinine Urine Total Protein Fluid Total Protein Vancomycin Trough Rheumatoid Factor Complement C4 Miscellaneous Test Crossmatch See Detail 09/16/16 09/16/16 09/16/16 17:55 19:19 23:48 WBC RBC Hgb Hct MCV MCH MCHC RDW Plt Count Lymph % (Auto) Benzie % (Auto) Lymph # Benzie # Baso # Seg Neutrophils % Seg Neuts % (Manual) Lymphocytes % (Manual) Monocytes % (Manual) Eosinophils % (Manual) Basophils % (Manual) Nucleated RBC % Seg Neutrophils # Seg Neutrophils # Man Lymphocytes # (Manual) Monocytes # (Manual) Eosinophils # (Manual) Basophils # (Manual) PT INR Fibrinogen dRVVT Confirm Interp Factor V Activity POC ABG pH POC ABG pCO2 POC ABG pO2 ABG pO2 ABG HCO3 ABG Base Excess ABG Hemoglobin Oxyhemoglobin Sodium Potassium Chloride Carbon Dioxide BUN Creatinine Glucose POC Glucose 222 H 107 H Lactic Acid Calcium Ionized Calcium Phosphorus Magnesium Direct Bilirubin AST ALT Alkaline Phosphatase Lactate Dehydrogenase Troponin T C-Reactive Protein Total Protein Albumin Prealbumin Triglycerides Cholesterol LDL Cholesterol Direct HDL Cholesterol 25-OH Vitamin D Total PTH Intact Urine pH Urine WBC (Auto) Urine Creatinine 47.4 H Urine Total Protein 16 H Fluid Total Protein Vancomycin Trough Rheumatoid Factor Complement C4 Miscellaneous Test Crossmatch 09/17/16 09/17/16 09/17/16 03:45 03:45 04:55 WBC 19.6 H RBC 3.41 L Hgb 8.5 L Hct 26.7 L MCV 78 L MCH 25 L MCHC RDW 19.9 H Plt Count Lymph % (Auto) 9.3 L Benzie % (Auto) Lymph # Benzie # 1.2 H Baso # Seg Neutrophils % 83.9 H Seg Neuts % (Manual) Lymphocytes % (Manual) Monocytes % (Manual) Eosinophils % (Manual) Basophils % (Manual) Nucleated RBC % Seg Neutrophils # 16.4 H Seg Neutrophils # Man Lymphocytes # (Manual) Monocytes # (Manual) Eosinophils # (Manual) Basophils # (Manual) PT INR Fibrinogen dRVVT Confirm Interp Factor V Activity POC ABG pH POC ABG pCO2 POC ABG pO2 ABG pO2 ABG HCO3 ABG Base Excess ABG Hemoglobin Oxyhemoglobin Sodium 146 H Potassium 5.1 H Chloride 110.9 H Carbon Dioxide 16 L BUN 146 H Creatinine 4.0 H Glucose 108 H POC Glucose 133 H Lactic Acid Calcium Ionized Calcium Phosphorus Magnesium 3.00 H Direct Bilirubin AST ALT Alkaline Phosphatase Lactate Dehydrogenase Troponin T C-Reactive Protein Total Protein Albumin Prealbumin Triglycerides Cholesterol LDL Cholesterol Direct HDL Cholesterol 25-OH Vitamin D Total PTH Intact Urine pH Urine WBC (Auto) Urine Creatinine Urine Total Protein Fluid Total Protein Vancomycin Trough Rheumatoid Factor Complement C4 Miscellaneous Test Crossmatch 09/17/16 09/17/16 09/17/16 11:15 17:33 23:47 WBC RBC Hgb Hct MCV MCH MCHC RDW Plt Count Lymph % (Auto) Benzie % (Auto) Lymph # Benzie # Baso # Seg Neutrophils % Seg Neuts % (Manual) Lymphocytes % (Manual) Monocytes % (Manual) Eosinophils % (Manual) Basophils % (Manual) Nucleated RBC % Seg Neutrophils # Seg Neutrophils # Man Lymphocytes # (Manual) Monocytes # (Manual) Eosinophils # (Manual) Basophils # (Manual) PT INR Fibrinogen dRVVT Confirm Interp Factor V Activity POC ABG pH POC ABG pCO2 POC ABG pO2 ABG pO2 ABG HCO3 ABG Base Excess ABG Hemoglobin Oxyhemoglobin Sodium Potassium Chloride Carbon Dioxide BUN Creatinine Glucose POC Glucose 176 H 246 H 148 H Lactic Acid Calcium Ionized Calcium Phosphorus Magnesium Direct Bilirubin AST ALT Alkaline Phosphatase Lactate Dehydrogenase Troponin T C-Reactive Protein Total Protein Albumin Prealbumin Triglycerides Cholesterol LDL Cholesterol Direct HDL Cholesterol 25-OH Vitamin D Total PTH Intact Urine pH Urine WBC (Auto) Urine Creatinine Urine Total Protein Fluid Total Protein Vancomycin Trough Rheumatoid Factor Complement C4 Miscellaneous Test Crossmatch 09/18/16 09/18/16 09/18/16 05:33 08:31 08:31 WBC 18.0 H RBC 3.17 L Hgb 9.0 L Hct 25.7 L MCV MCH MCHC 35 H RDW 20.4 H Plt Count Lymph % (Auto) Benzie % (Auto) Lymph # Benzie # Baso # Seg Neutrophils % Seg Neuts % (Manual) Lymphocytes % (Manual) Monocytes % (Manual) Eosinophils % (Manual) Basophils % (Manual) Nucleated RBC % Seg Neutrophils # Seg Neutrophils # Man Lymphocytes # (Manual) Monocytes # (Manual) Eosinophils # (Manual) Basophils # (Manual) PT INR Fibrinogen dRVVT Confirm Interp Factor V Activity POC ABG pH POC ABG pCO2 POC ABG pO2 ABG pO2 ABG HCO3 ABG Base Excess ABG Hemoglobin Oxyhemoglobin Sodium Potassium Chloride Carbon Dioxide 15 L BUN 124 H Creatinine 3.8 H Glucose POC Glucose 120 H Lactic Acid Calcium 8.1 L Ionized Calcium Phosphorus Magnesium Direct Bilirubin AST ALT Alkaline Phosphatase Lactate Dehydrogenase Troponin T C-Reactive Protein Total Protein Albumin Prealbumin Triglycerides Cholesterol LDL Cholesterol Direct HDL Cholesterol 25-OH Vitamin D Total PTH Intact Urine pH Urine WBC (Auto) Urine Creatinine Urine Total Protein Fluid Total Protein Vancomycin Trough Rheumatoid Factor Complement C4 Miscellaneous Test Crossmatch 09/18/16 09/18/16 09/18/16 12:03 15:34 17:50 WBC RBC Hgb Hct MCV MCH MCHC RDW Plt Count Lymph % (Auto) Benzie % (Auto) Lymph # Benzie # Baso # Seg Neutrophils % Seg Neuts % (Manual) Lymphocytes % (Manual) Monocytes % (Manual) Eosinophils % (Manual) Basophils % (Manual) Nucleated RBC % Seg Neutrophils # Seg Neutrophils # Man Lymphocytes # (Manual) Monocytes # (Manual) Eosinophils # (Manual) Basophils # (Manual) PT INR Fibrinogen dRVVT Confirm Interp Factor V Activity POC ABG pH POC ABG pCO2 25.7 L POC ABG pO2 66 L ABG pO2 ABG HCO3 ABG Base Excess ABG Hemoglobin Oxyhemoglobin Sodium Potassium Chloride Carbon Dioxide BUN Creatinine Glucose POC Glucose 156 H 220 H Lactic Acid Calcium Ionized Calcium Phosphorus Magnesium Direct Bilirubin AST ALT Alkaline Phosphatase Lactate Dehydrogenase Troponin T C-Reactive Protein Total Protein Albumin Prealbumin Triglycerides Cholesterol LDL Cholesterol Direct HDL Cholesterol 25-OH Vitamin D Total PTH Intact Urine pH Urine WBC (Auto) Urine Creatinine Urine Total Protein Fluid Total Protein Vancomycin Trough Rheumatoid Factor Complement C4 Miscellaneous Test Crossmatch 09/19/16 09/19/16 09/19/16 06:21 09:50 09:50 WBC 17.1 H RBC 3.49 L Hgb 9.0 L Hct 28.1 L MCV MCH 26 L MCHC RDW 20.8 H Plt Count Lymph % (Auto) 11.5 L Benzie % (Auto) 7.5 H Lymph # Benzie # 1.3 H Baso # Seg Neutrophils % 79.8 H Seg Neuts % (Manual) Lymphocytes % (Manual) Monocytes % (Manual) Eosinophils % (Manual) Basophils % (Manual) Nucleated RBC % Seg Neutrophils # 13.7 H Seg Neutrophils # Man Lymphocytes # (Manual) Monocytes # (Manual) Eosinophils # (Manual) Basophils # (Manual) PT INR Fibrinogen dRVVT Confirm Interp Factor V Activity POC ABG pH POC ABG pCO2 POC ABG pO2 ABG pO2 ABG HCO3 ABG Base Excess ABG Hemoglobin Oxyhemoglobin Sodium Potassium Chloride 108.6 H Carbon Dioxide 15 L BUN 125 H Creatinine 4.1 H Glucose 124 H POC Glucose 119 H Lactic Acid Calcium Ionized Calcium Phosphorus Magnesium Direct Bilirubin AST ALT Alkaline Phosphatase Lactate Dehydrogenase Troponin T C-Reactive Protein Total Protein Albumin Prealbumin Triglycerides Cholesterol LDL Cholesterol Direct HDL Cholesterol 25-OH Vitamin D Total PTH Intact Urine pH Urine WBC (Auto) Urine Creatinine Urine Total Protein Fluid Total Protein Vancomycin Trough Rheumatoid Factor Complement C4 Miscellaneous Test Crossmatch 09/19/16 09/19/16 09/19/16 11:25 17:53 23:36 WBC RBC Hgb Hct MCV MCH MCHC RDW Plt Count Lymph % (Auto) Benzie % (Auto) Lymph # Benzie # Baso # Seg Neutrophils % Seg Neuts % (Manual) Lymphocytes % (Manual) Monocytes % (Manual) Eosinophils % (Manual) Basophils % (Manual) Nucleated RBC % Seg Neutrophils # Seg Neutrophils # Man Lymphocytes # (Manual) Monocytes # (Manual) Eosinophils # (Manual) Basophils # (Manual) PT INR Fibrinogen dRVVT Confirm Interp Factor V Activity POC ABG pH POC ABG pCO2 POC ABG pO2 ABG pO2 ABG HCO3 ABG Base Excess ABG Hemoglobin Oxyhemoglobin Sodium Potassium Chloride Carbon Dioxide BUN Creatinine Glucose POC Glucose 160 H 245 H 121 H Lactic Acid Calcium Ionized Calcium Phosphorus Magnesium Direct Bilirubin AST ALT Alkaline Phosphatase Lactate Dehydrogenase Troponin T C-Reactive Protein Total Protein Albumin Prealbumin Triglycerides Cholesterol LDL Cholesterol Direct HDL Cholesterol 25-OH Vitamin D Total PTH Intact Urine pH Urine WBC (Auto) Urine Creatinine Urine Total Protein Fluid Total Protein Vancomycin Trough Rheumatoid Factor Complement C4 Miscellaneous Test Crossmatch 09/20/16 09/20/16 09/20/16 04:10 04:10 04:10 WBC 17.0 H RBC 3.21 L Hgb 8.2 L Hct 25.5 L MCV MCH 26 L MCHC RDW 20.9 H Plt Count Lymph % (Auto) Benzie % (Auto) Lymph # Benzie # Baso # Seg Neutrophils % Seg Neuts % (Manual) Lymphocytes % (Manual) Monocytes % (Manual) Eosinophils % (Manual) Basophils % (Manual) Nucleated RBC % Seg Neutrophils # Seg Neutrophils # Man Lymphocytes # (Manual) Monocytes # (Manual) Eosinophils # (Manual) Basophils # (Manual) PT INR Fibrinogen dRVVT Confirm Interp Factor V Activity POC ABG pH POC ABG pCO2 POC ABG pO2 ABG pO2 ABG HCO3 ABG Base Excess ABG Hemoglobin Oxyhemoglobin Sodium Potassium Chloride 111.0 H Carbon Dioxide 16 L BUN 129 H Creatinine 3.7 H Glucose 115 H POC Glucose Lactic Acid Calcium 8.2 L Ionized Calcium Phosphorus Magnesium Direct Bilirubin AST ALT Alkaline Phosphatase Lactate Dehydrogenase Troponin T C-Reactive Protein Total Protein Albumin Prealbumin Triglycerides 243 H Cholesterol LDL Cholesterol Direct HDL Cholesterol 25-OH Vitamin D Total PTH Intact Urine pH Urine WBC (Auto) Urine Creatinine Urine Total Protein Fluid Total Protein Vancomycin Trough Rheumatoid Factor Complement C4 Miscellaneous Test Crossmatch 09/20/16 09/20/16 09/20/16 05:40 11:52 16:50 WBC RBC Hgb Hct MCV MCH MCHC RDW Plt Count Lymph % (Auto) Benzie % (Auto) Lymph # Benzie # Baso # Seg Neutrophils % Seg Neuts % (Manual) Lymphocytes % (Manual) Monocytes % (Manual) Eosinophils % (Manual) Basophils % (Manual) Nucleated RBC % Seg Neutrophils # Seg Neutrophils # Man Lymphocytes # (Manual) Monocytes # (Manual) Eosinophils # (Manual) Basophils # (Manual) PT INR Fibrinogen dRVVT Confirm Interp Factor V Activity POC ABG pH POC ABG pCO2 POC ABG pO2 ABG pO2 ABG HCO3 ABG Base Excess ABG Hemoglobin Oxyhemoglobin Sodium Potassium Chloride Carbon Dioxide BUN Creatinine Glucose POC Glucose 131 H 183 H 236 H Lactic Acid Calcium Ionized Calcium Phosphorus Magnesium Direct Bilirubin AST ALT Alkaline Phosphatase Lactate Dehydrogenase Troponin T C-Reactive Protein Total Protein Albumin Prealbumin Triglycerides Cholesterol LDL Cholesterol Direct HDL Cholesterol 25-OH Vitamin D Total PTH Intact Urine pH Urine WBC (Auto) Urine Creatinine Urine Total Protein Fluid Total Protein Vancomycin Trough Rheumatoid Factor Complement C4 Miscellaneous Test Crossmatch 09/20/16 09/21/16 09/21/16 23:51 03:30 04:44 WBC RBC Hgb Hct MCV MCH MCHC RDW Plt Count Lymph % (Auto) Benzie % (Auto) Lymph # Benzie # Baso # Seg Neutrophils % Seg Neuts % (Manual) Lymphocytes % (Manual) Monocytes % (Manual) Eosinophils % (Manual) Basophils % (Manual) Nucleated RBC % Seg Neutrophils # Seg Neutrophils # Man Lymphocytes # (Manual) Monocytes # (Manual) Eosinophils # (Manual) Basophils # (Manual) PT INR Fibrinogen dRVVT Confirm Interp Factor V Activity POC ABG pH POC ABG pCO2 POC ABG pO2 ABG pO2 ABG HCO3 ABG Base Excess ABG Hemoglobin Oxyhemoglobin Sodium Potassium Chloride Carbon Dioxide BUN Creatinine Glucose POC Glucose 114 H 141 H Lactic Acid Calcium Ionized Calcium Phosphorus Magnesium 2.70 H Direct Bilirubin AST ALT Alkaline Phosphatase Lactate Dehydrogenase Troponin T C-Reactive Protein Total Protein Albumin Prealbumin Triglycerides Cholesterol LDL Cholesterol Direct HDL Cholesterol 25-OH Vitamin D Total PTH Intact Urine pH Urine WBC (Auto) Urine Creatinine Urine Total Protein Fluid Total Protein Vancomycin Trough Rheumatoid Factor Complement C4 Miscellaneous Test Crossmatch 09/21/16 09/21/16 09/21/16 07:45 07:45 10:01 WBC 13.8 H RBC 2.94 L Hgb 7.5 L Hct 23.5 L MCV MCH 26 L MCHC RDW 21.2 H Plt Count Lymph % (Auto) 6.9 L Benzie % (Auto) 9.4 H Lymph # 0.9 L Benzie # 1.3 H Baso # Seg Neutrophils % 83.2 H Seg Neuts % (Manual) Lymphocytes % (Manual) Monocytes % (Manual) Eosinophils % (Manual) Basophils % (Manual) Nucleated RBC % Seg Neutrophils # 11.5 H Seg Neutrophils # Man Lymphocytes # (Manual) Monocytes # (Manual) Eosinophils # (Manual) Basophils # (Manual) PT INR Fibrinogen dRVVT Confirm Interp Factor V Activity POC ABG pH 7.308 L POC ABG pCO2 31.9 L POC ABG pO2 148 H ABG pO2 ABG HCO3 ABG Base Excess ABG Hemoglobin Oxyhemoglobin Sodium 147 H Potassium Chloride 114.2 H Carbon Dioxide 15 L BUN 120 H Creatinine 3.9 H Glucose 156 H POC Glucose Lactic Acid Calcium 8.2 L Ionized Calcium Phosphorus Magnesium Direct Bilirubin AST ALT Alkaline Phosphatase Lactate Dehydrogenase Troponin T C-Reactive Protein Total Protein Albumin Prealbumin Triglycerides Cholesterol LDL Cholesterol Direct HDL Cholesterol 25-OH Vitamin D Total PTH Intact Urine pH Urine WBC (Auto) Urine Creatinine Urine Total Protein Fluid Total Protein Vancomycin Trough Rheumatoid Factor Complement C4 Miscellaneous Test Crossmatch 09/21/16 09/21/16 09/21/16 12:00 12:03 13:00 WBC RBC Hgb Hct MCV MCH MCHC RDW Plt Count Lymph % (Auto) Benzie % (Auto) Lymph # Benzie # Baso # Seg Neutrophils % Seg Neuts % (Manual) Lymphocytes % (Manual) Monocytes % (Manual) Eosinophils % (Manual) Basophils % (Manual) Nucleated RBC % Seg Neutrophils # Seg Neutrophils # Man Lymphocytes # (Manual) Monocytes # (Manual) Eosinophils # (Manual) Basophils # (Manual) PT INR Fibrinogen dRVVT Confirm Interp Factor V Activity POC ABG pH POC ABG pCO2 POC ABG pO2 ABG pO2 ABG HCO3 ABG Base Excess ABG Hemoglobin Oxyhemoglobin Sodium Potassium Chloride Carbon Dioxide BUN Creatinine Glucose POC Glucose 163 H Lactic Acid Calcium Ionized Calcium Phosphorus Magnesium Direct Bilirubin AST ALT Alkaline Phosphatase Lactate Dehydrogenase Troponin T C-Reactive Protein Total Protein Albumin Prealbumin Triglycerides Cholesterol LDL Cholesterol Direct HDL Cholesterol 25-OH Vitamin D Total PTH Intact Urine pH Urine WBC (Auto) Urine Creatinine 54.8 H Urine Total Protein Fluid Total Protein Vancomycin Trough 2.3 L Rheumatoid Factor Complement C4 Miscellaneous Test Crossmatch 09/21/16 09/21/16 09/22/16 16:51 23:17 06:27 WBC RBC Hgb Hct MCV MCH MCHC RDW Plt Count Lymph % (Auto) Benzie % (Auto) Lymph # Benzie # Baso # Seg Neutrophils % Seg Neuts % (Manual) Lymphocytes % (Manual) Monocytes % (Manual) Eosinophils % (Manual) Basophils % (Manual) Nucleated RBC % Seg Neutrophils # Seg Neutrophils # Man Lymphocytes # (Manual) Monocytes # (Manual) Eosinophils # (Manual) Basophils # (Manual) PT INR Fibrinogen dRVVT Confirm Interp Factor V Activity POC ABG pH POC ABG pCO2 POC ABG pO2 ABG pO2 ABG HCO3 ABG Base Excess ABG Hemoglobin Oxyhemoglobin Sodium Potassium Chloride Carbon Dioxide BUN Creatinine Glucose POC Glucose 206 H 114 H 115 H Lactic Acid Calcium Ionized Calcium Phosphorus Magnesium Direct Bilirubin AST ALT Alkaline Phosphatase Lactate Dehydrogenase Troponin T C-Reactive Protein Total Protein Albumin Prealbumin Triglycerides Cholesterol LDL Cholesterol Direct HDL Cholesterol 25-OH Vitamin D Total PTH Intact Urine pH Urine WBC (Auto) Urine Creatinine Urine Total Protein Fluid Total Protein Vancomycin Trough Rheumatoid Factor Complement C4 Miscellaneous Test Crossmatch 09/22/16 09/22/16 09/22/16 07:50 07:50 12:00 WBC 17.8 H RBC 3.04 L Hgb 8.0 L Hct 24.7 L MCV MCH 26 L MCHC RDW 21.6 H Plt Count Lymph % (Auto) Benzie % (Auto) Lymph # Benzie # Baso # Seg Neutrophils % Seg Neuts % (Manual) Lymphocytes % (Manual) Monocytes % (Manual) Eosinophils % (Manual) Basophils % (Manual) Nucleated RBC % Seg Neutrophils # Seg Neutrophils # Man Lymphocytes # (Manual) Monocytes # (Manual) Eosinophils # (Manual) Basophils # (Manual) PT INR Fibrinogen dRVVT Confirm Interp Factor V Activity POC ABG pH POC ABG pCO2 POC ABG pO2 ABG pO2 ABG HCO3 ABG Base Excess ABG Hemoglobin Oxyhemoglobin Sodium 150 H Potassium Chloride 118.2 H Carbon Dioxide 14 L BUN 111 H Creatinine 3.7 H Glucose 157 H POC Glucose 183 H Lactic Acid Calcium Ionized Calcium Phosphorus Magnesium Direct Bilirubin AST ALT Alkaline Phosphatase Lactate Dehydrogenase Troponin T C-Reactive Protein Total Protein Albumin Prealbumin Triglycerides Cholesterol LDL Cholesterol Direct HDL Cholesterol 25-OH Vitamin D Total PTH Intact Urine pH Urine WBC (Auto) Urine Creatinine Urine Total Protein Fluid Total Protein Vancomycin Trough Rheumatoid Factor Complement C4 Miscellaneous Test Crossmatch 09/22/16 09/22/16 09/23/16 17:29 23:10 05:00 WBC 19.2 H RBC 3.13 L Hgb 8.0 L Hct 25.2 L MCV MCH 26 L MCHC RDW 22.1 H Plt Count Lymph % (Auto) Benzie % (Auto) Lymph # Benzie # Baso # Seg Neutrophils % Seg Neuts % (Manual) 92.0 H Lymphocytes % (Manual) 3.0 L Monocytes % (Manual) Eosinophils % (Manual) Basophils % (Manual) Nucleated RBC % Seg Neutrophils # Seg Neutrophils # Man 17.7 H Lymphocytes # (Manual) 0.6 L Monocytes # (Manual) Eosinophils # (Manual) Basophils # (Manual) PT INR Fibrinogen dRVVT Confirm Interp Factor V Activity POC ABG pH POC ABG pCO2 POC ABG pO2 ABG pO2 ABG HCO3 ABG Base Excess ABG Hemoglobin Oxyhemoglobin Sodium Potassium Chloride Carbon Dioxide BUN Creatinine Glucose POC Glucose 197 H 169 H Lactic Acid Calcium Ionized Calcium Phosphorus Magnesium Direct Bilirubin AST ALT Alkaline Phosphatase Lactate Dehydrogenase Troponin T C-Reactive Protein Total Protein Albumin Prealbumin Triglycerides Cholesterol LDL Cholesterol Direct HDL Cholesterol 25-OH Vitamin D Total PTH Intact Urine pH Urine WBC (Auto) Urine Creatinine Urine Total Protein Fluid Total Protein Vancomycin Trough Rheumatoid Factor Complement C4 Miscellaneous Test Crossmatch 09/23/16 09/23/16 09/23/16 05:00 05:00 05:10 WBC RBC Hgb Hct MCV MCH MCHC RDW Plt Count Lymph % (Auto) Benzie % (Auto) Lymph # Benzie # Baso # Seg Neutrophils % Seg Neuts % (Manual) Lymphocytes % (Manual) Monocytes % (Manual) Eosinophils % (Manual) Basophils % (Manual) Nucleated RBC % Seg Neutrophils # Seg Neutrophils # Man Lymphocytes # (Manual) Monocytes # (Manual) Eosinophils # (Manual) Basophils # (Manual) PT INR Fibrinogen dRVVT Confirm Interp Factor V Activity POC ABG pH POC ABG pCO2 POC ABG pO2 ABG pO2 ABG HCO3 ABG Base Excess ABG Hemoglobin Oxyhemoglobin Sodium 147 H Potassium 3.2 L Chloride 115.7 H Carbon Dioxide 13 L BUN 111 H Creatinine 3.8 H Glucose 194 H POC Glucose 188 H Lactic Acid Calcium 7.3 L D Ionized Calcium Phosphorus Magnesium Direct Bilirubin AST ALT Alkaline Phosphatase Lactate Dehydrogenase Troponin T C-Reactive Protein 3.20 H Total Protein Albumin Prealbumin Triglycerides Cholesterol LDL Cholesterol Direct HDL Cholesterol 25-OH Vitamin D Total PTH Intact Urine pH Urine WBC (Auto) Urine Creatinine Urine Total Protein Fluid Total Protein Vancomycin Trough Rheumatoid Factor Complement C4 Miscellaneous Test Crossmatch 09/23/16 09/23/16 09/23/16 11:37 12:29 18:01 WBC RBC Hgb Hct MCV MCH MCHC RDW Plt Count Lymph % (Auto) Benzie % (Auto) Lymph # Benzie # Baso # Seg Neutrophils % Seg Neuts % (Manual) Lymphocytes % (Manual) Monocytes % (Manual) Eosinophils % (Manual) Basophils % (Manual) Nucleated RBC % Seg Neutrophils # Seg Neutrophils # Man Lymphocytes # (Manual) Monocytes # (Manual) Eosinophils # (Manual) Basophils # (Manual) PT INR Fibrinogen dRVVT Confirm Interp Factor V Activity POC ABG pH POC ABG pCO2 18.9 L POC ABG pO2 143 H ABG pO2 ABG HCO3 ABG Base Excess ABG Hemoglobin Oxyhemoglobin Sodium Potassium Chloride Carbon Dioxide BUN Creatinine Glucose POC Glucose 153 H 108 H Lactic Acid Calcium Ionized Calcium Phosphorus Magnesium Direct Bilirubin AST ALT Alkaline Phosphatase Lactate Dehydrogenase Troponin T C-Reactive Protein Total Protein Albumin Prealbumin Triglycerides Cholesterol LDL Cholesterol Direct HDL Cholesterol 25-OH Vitamin D Total PTH Intact Urine pH Urine WBC (Auto) Urine Creatinine Urine Total Protein Fluid Total Protein Vancomycin Trough Rheumatoid Factor Complement C4 Miscellaneous Test Crossmatch 09/23/16 09/23/16 09/24/16 21:19 23:43 05:16 WBC RBC Hgb Hct MCV MCH MCHC RDW Plt Count Lymph % (Auto) Benzie % (Auto) Lymph # Benzie # Baso # Seg Neutrophils % Seg Neuts % (Manual) Lymphocytes % (Manual) Monocytes % (Manual) Eosinophils % (Manual) Basophils % (Manual) Nucleated RBC % Seg Neutrophils # Seg Neutrophils # Man Lymphocytes # (Manual) Monocytes # (Manual) Eosinophils # (Manual) Basophils # (Manual) PT INR Fibrinogen dRVVT Confirm Interp Factor V Activity POC ABG pH POC ABG pCO2 17.3 L POC ABG pO2 112 H ABG pO2 ABG HCO3 ABG Base Excess ABG Hemoglobin Oxyhemoglobin Sodium Potassium Chloride Carbon Dioxide BUN Creatinine Glucose POC Glucose 143 H 164 H Lactic Acid Calcium Ionized Calcium Phosphorus Magnesium Direct Bilirubin AST ALT Alkaline Phosphatase Lactate Dehydrogenase Troponin T C-Reactive Protein Total Protein Albumin Prealbumin Triglycerides Cholesterol LDL Cholesterol Direct HDL Cholesterol 25-OH Vitamin D Total PTH Intact Urine pH Urine WBC (Auto) Urine Creatinine Urine Total Protein Fluid Total Protein Vancomycin Trough Rheumatoid Factor Complement C4 Miscellaneous Test Crossmatch 09/24/16 09/24/16 09/24/16 05:21 11:58 17:06 WBC RBC Hgb Hct MCV MCH MCHC RDW Plt Count Lymph % (Auto) Benzie % (Auto) Lymph # Benzie # Baso # Seg Neutrophils % Seg Neuts % (Manual) Lymphocytes % (Manual) Monocytes % (Manual) Eosinophils % (Manual) Basophils % (Manual) Nucleated RBC % Seg Neutrophils # Seg Neutrophils # Man Lymphocytes # (Manual) Monocytes # (Manual) Eosinophils # (Manual) Basophils # (Manual) PT INR Fibrinogen dRVVT Confirm Interp Factor V Activity POC ABG pH POC ABG pCO2 POC ABG pO2 ABG pO2 ABG HCO3 ABG Base Excess ABG Hemoglobin Oxyhemoglobin Sodium Potassium Chloride Carbon Dioxide 10 L BUN 103 H Creatinine 4.3 H Glucose 163 H POC Glucose 173 H 167 H Lactic Acid Calcium 6.5 L Ionized Calcium Phosphorus Magnesium Direct Bilirubin AST ALT Alkaline Phosphatase Lactate Dehydrogenase Troponin T C-Reactive Protein Total Protein Albumin Prealbumin Triglycerides Cholesterol LDL Cholesterol Direct HDL Cholesterol 25-OH Vitamin D Total PTH Intact Urine pH Urine WBC (Auto) Urine Creatinine Urine Total Protein Fluid Total Protein Vancomycin Trough Rheumatoid Factor Complement C4 Miscellaneous Test Crossmatch 09/24/16 09/24/16 09/24/16 20:15 21:02 23:48 WBC RBC Hgb Hct MCV MCH MCHC RDW Plt Count Lymph % (Auto) Benzie % (Auto) Lymph # Benzie # Baso # Seg Neutrophils % Seg Neuts % (Manual) Lymphocytes % (Manual) Monocytes % (Manual) Eosinophils % (Manual) Basophils % (Manual) Nucleated RBC % Seg Neutrophils # Seg Neutrophils # Man Lymphocytes # (Manual) Monocytes # (Manual) Eosinophils # (Manual) Basophils # (Manual) PT INR Fibrinogen dRVVT Confirm Interp Factor V Activity POC ABG pH 7.288 L POC ABG pCO2 30.2 L 21.5 L POC ABG pO2 32 L 39 L ABG pO2 ABG HCO3 ABG Base Excess ABG Hemoglobin Oxyhemoglobin Sodium Potassium Chloride Carbon Dioxide BUN Creatinine Glucose POC Glucose 109 H Lactic Acid Calcium Ionized Calcium Phosphorus Magnesium Direct Bilirubin AST ALT Alkaline Phosphatase Lactate Dehydrogenase Troponin T C-Reactive Protein Total Protein Albumin Prealbumin Triglycerides Cholesterol LDL Cholesterol Direct HDL Cholesterol 25-OH Vitamin D Total PTH Intact Urine pH Urine WBC (Auto) Urine Creatinine Urine Total Protein Fluid Total Protein Vancomycin Trough Rheumatoid Factor Complement C4 Miscellaneous Test Crossmatch 09/25/16 09/25/16 09/25/16 04:20 04:20 04:20 WBC RBC 2.58 L Hgb 7.0 L Hct 21.0 L MCV MCH 27 L MCHC RDW 23.8 H Plt Count Lymph % (Auto) Benzie % (Auto) Lymph # Benzie # Baso # Seg Neutrophils % Seg Neuts % (Manual) Lymphocytes % (Manual) 12.0 L Monocytes % (Manual) Eosinophils % (Manual) 7.0 H Basophils % (Manual) 2.0 H Nucleated RBC % Seg Neutrophils # Seg Neutrophils # Man Lymphocytes # (Manual) 0.9 L Monocytes # (Manual) Eosinophils # (Manual) 0.5 H Basophils # (Manual) PT INR Fibrinogen dRVVT Confirm Interp Factor V Activity POC ABG pH POC ABG pCO2 POC ABG pO2 ABG pO2 ABG HCO3 ABG Base Excess ABG Hemoglobin Oxyhemoglobin Sodium Potassium Chloride Carbon Dioxide 15 L BUN 72 H Creatinine 3.8 H Glucose POC Glucose Lactic Acid Calcium 6.0 L Ionized Calcium Phosphorus 4.60 H Magnesium 1.60 L Direct Bilirubin AST ALT Alkaline Phosphatase Lactate Dehydrogenase Troponin T C-Reactive Protein Total Protein Albumin Prealbumin Triglycerides Cholesterol LDL Cholesterol Direct HDL Cholesterol 25-OH Vitamin D Total PTH Intact Urine pH Urine WBC (Auto) Urine Creatinine Urine Total Protein Fluid Total Protein Vancomycin Trough Rheumatoid Factor Complement C4 Miscellaneous Test Crossmatch 09/25/16 09/25/16 09/25/16 04:57 08:02 10:30 WBC RBC Hgb Hct MCV MCH MCHC RDW Plt Count Lymph % (Auto) Benzie % (Auto) Lymph # Benzie # Baso # Seg Neutrophils % Seg Neuts % (Manual) Lymphocytes % (Manual) Monocytes % (Manual) Eosinophils % (Manual) Basophils % (Manual) Nucleated RBC % Seg Neutrophils # Seg Neutrophils # Man Lymphocytes # (Manual) Monocytes # (Manual) Eosinophils # (Manual) Basophils # (Manual) PT INR Fibrinogen dRVVT Confirm Interp Factor V Activity POC ABG pH POC ABG pCO2 24.7 L POC ABG pO2 152 H ABG pO2 ABG HCO3 ABG Base Excess ABG Hemoglobin Oxyhemoglobin Sodium Potassium Chloride Carbon Dioxide BUN Creatinine Glucose POC Glucose 113 H Lactic Acid Calcium Ionized Calcium Phosphorus Magnesium Direct Bilirubin AST ALT Alkaline Phosphatase Lactate Dehydrogenase Troponin T C-Reactive Protein Total Protein Albumin Prealbumin Triglycerides Cholesterol LDL Cholesterol Direct HDL Cholesterol 25-OH Vitamin D Total PTH Intact Urine pH Urine WBC (Auto) Urine Creatinine Urine Total Protein Fluid Total Protein Vancomycin Trough Rheumatoid Factor Complement C4 Miscellaneous Test Crossmatch See Detail 09/25/16 09/25/16 09/25/16 12:05 17:44 23:47 WBC RBC Hgb Hct MCV MCH MCHC RDW Plt Count Lymph % (Auto) Benzie % (Auto) Lymph # Benzie # Baso # Seg Neutrophils % Seg Neuts % (Manual) Lymphocytes % (Manual) Monocytes % (Manual) Eosinophils % (Manual) Basophils % (Manual) Nucleated RBC % Seg Neutrophils # Seg Neutrophils # Man Lymphocytes # (Manual) Monocytes # (Manual) Eosinophils # (Manual) Basophils # (Manual) PT INR Fibrinogen dRVVT Confirm Interp Factor V Activity POC ABG pH POC ABG pCO2 POC ABG pO2 ABG pO2 ABG HCO3 ABG Base Excess ABG Hemoglobin Oxyhemoglobin Sodium Potassium Chloride Carbon Dioxide BUN Creatinine Glucose POC Glucose 117 H 119 H 150 H Lactic Acid Calcium Ionized Calcium Phosphorus Magnesium Direct Bilirubin AST ALT Alkaline Phosphatase Lactate Dehydrogenase Troponin T C-Reactive Protein Total Protein Albumin Prealbumin Triglycerides Cholesterol LDL Cholesterol Direct HDL Cholesterol 25-OH Vitamin D Total PTH Intact Urine pH Urine WBC (Auto) Urine Creatinine Urine Total Protein Fluid Total Protein Vancomycin Trough Rheumatoid Factor Complement C4 Miscellaneous Test Crossmatch 09/26/16 09/26/16 09/26/16 04:25 04:25 04:25 WBC RBC 2.65 L Hgb 7.4 L Hct 21.6 L MCV MCH MCHC RDW 22.5 H Plt Count Lymph % (Auto) Benzie % (Auto) Lymph # Benzie # Baso # Seg Neutrophils % Seg Neuts % (Manual) Lymphocytes % (Manual) 6.0 L Monocytes % (Manual) Eosinophils % (Manual) 11.0 H Basophils % (Manual) Nucleated RBC % Seg Neutrophils # Seg Neutrophils # Man Lymphocytes # (Manual) 0.4 L Monocytes # (Manual) Eosinophils # (Manual) 0.6 H Basophils # (Manual) PT INR Fibrinogen dRVVT Confirm Interp Factor V Activity POC ABG pH POC ABG pCO2 POC ABG pO2 ABG pO2 ABG HCO3 ABG Base Excess ABG Hemoglobin Oxyhemoglobin Sodium Potassium Chloride 97.0 L Carbon Dioxide 19 L BUN 43 H Creatinine 2.6 H Glucose 130 H POC Glucose Lactic Acid 4.40 H* Calcium 6.7 L Ionized Calcium Phosphorus Magnesium Direct Bilirubin AST ALT Alkaline Phosphatase Lactate Dehydrogenase Troponin T C-Reactive Protein Total Protein Albumin Prealbumin Triglycerides Cholesterol LDL Cholesterol Direct HDL Cholesterol 25-OH Vitamin D Total PTH Intact Urine pH Urine WBC (Auto) Urine Creatinine Urine Total Protein Fluid Total Protein Vancomycin Trough Rheumatoid Factor Complement C4 Miscellaneous Test Crossmatch 09/26/16 09/26/16 09/26/16 05:20 11:44 12:12 WBC RBC Hgb Hct MCV MCH MCHC RDW Plt Count Lymph % (Auto) Benzie % (Auto) Lymph # Benzie # Baso # Seg Neutrophils % Seg Neuts % (Manual) Lymphocytes % (Manual) Monocytes % (Manual) Eosinophils % (Manual) Basophils % (Manual) Nucleated RBC % Seg Neutrophils # Seg Neutrophils # Man Lymphocytes # (Manual) Monocytes # (Manual) Eosinophils # (Manual) Basophils # (Manual) PT INR Fibrinogen dRVVT Confirm Interp Factor V Activity POC ABG pH POC ABG pCO2 27.0 L POC ABG pO2 69 L ABG pO2 ABG HCO3 ABG Base Excess ABG Hemoglobin Oxyhemoglobin Sodium Potassium Chloride Carbon Dioxide BUN Creatinine Glucose POC Glucose 121 H 128 H Lactic Acid Calcium Ionized Calcium Phosphorus Magnesium Direct Bilirubin AST ALT Alkaline Phosphatase Lactate Dehydrogenase Troponin T C-Reactive Protein Total Protein Albumin Prealbumin Triglycerides Cholesterol LDL Cholesterol Direct HDL Cholesterol 25-OH Vitamin D Total PTH Intact Urine pH Urine WBC (Auto) Urine Creatinine Urine Total Protein Fluid Total Protein Vancomycin Trough Rheumatoid Factor Complement C4 Miscellaneous Test Crossmatch 09/26/16 09/26/16 09/27/16 18:31 23:40 08:20 WBC RBC Hgb Hct MCV MCH MCHC RDW Plt Count Lymph % (Auto) Benzie % (Auto) Lymph # Benzie # Baso # Seg Neutrophils % Seg Neuts % (Manual) Lymphocytes % (Manual) Monocytes % (Manual) Eosinophils % (Manual) Basophils % (Manual) Nucleated RBC % Seg Neutrophils # Seg Neutrophils # Man Lymphocytes # (Manual) Monocytes # (Manual) Eosinophils # (Manual) Basophils # (Manual) PT INR Fibrinogen dRVVT Confirm Interp Factor V Activity POC ABG pH POC ABG pCO2 POC ABG pO2 ABG pO2 ABG HCO3 ABG Base Excess ABG Hemoglobin Oxyhemoglobin Sodium Potassium Chloride Carbon Dioxide BUN Creatinine Glucose POC Glucose 120 H 133 H Lactic Acid 4.10 H* Calcium Ionized Calcium Phosphorus Magnesium Direct Bilirubin AST ALT Alkaline Phosphatase Lactate Dehydrogenase Troponin T C-Reactive Protein Total Protein Albumin Prealbumin Triglycerides Cholesterol LDL Cholesterol Direct HDL Cholesterol 25-OH Vitamin D Total PTH Intact Urine pH Urine WBC (Auto) Urine Creatinine Urine Total Protein Fluid Total Protein Vancomycin Trough Rheumatoid Factor Complement C4 Miscellaneous Test Crossmatch 09/27/16 09/27/16 09/27/16 11:23 15:00 18:15 WBC RBC Hgb Hct MCV MCH MCHC RDW Plt Count Lymph % (Auto) Benzie % (Auto) Lymph # Benzie # Baso # Seg Neutrophils % Seg Neuts % (Manual) Lymphocytes % (Manual) Monocytes % (Manual) Eosinophils % (Manual) Basophils % (Manual) Nucleated RBC % Seg Neutrophils # Seg Neutrophils # Man Lymphocytes # (Manual) Monocytes # (Manual) Eosinophils # (Manual) Basophils # (Manual) PT INR Fibrinogen dRVVT Confirm Interp Factor V Activity POC ABG pH 7.459 H POC ABG pCO2 27.1 L POC ABG pO2 140 H ABG pO2 ABG HCO3 ABG Base Excess ABG Hemoglobin Oxyhemoglobin Sodium Potassium Chloride Carbon Dioxide BUN Creatinine Glucose POC Glucose 114 H 127 H Lactic Acid Calcium Ionized Calcium Phosphorus Magnesium Direct Bilirubin AST ALT Alkaline Phosphatase Lactate Dehydrogenase Troponin T C-Reactive Protein Total Protein Albumin Prealbumin Triglycerides Cholesterol LDL Cholesterol Direct HDL Cholesterol 25-OH Vitamin D Total PTH Intact Urine pH Urine WBC (Auto) Urine Creatinine Urine Total Protein Fluid Total Protein Vancomycin Trough Rheumatoid Factor Complement C4 Miscellaneous Test Crossmatch 09/27/16 09/27/16 09/28/16 Unknown Unknown 03:45 WBC RBC 2.49 L Hgb 6.8 L Hct 20.7 L MCV MCH 27 L MCHC RDW 22.1 H Plt Count Lymph % (Auto) Benzie % (Auto) Lymph # Benzie # Baso # Seg Neutrophils % Seg Neuts % (Manual) 32.0 L Lymphocytes % (Manual) 12.0 L Monocytes % (Manual) 11.0 H Eosinophils % (Manual) 10.0 H Basophils % (Manual) Nucleated RBC % Seg Neutrophils # Seg Neutrophils # Man Lymphocytes # (Manual) 1.0 L Monocytes # (Manual) 0.9 H Eosinophils # (Manual) 0.8 H Basophils # (Manual) PT INR Fibrinogen dRVVT Confirm Interp Factor V Activity POC ABG pH POC ABG pCO2 POC ABG pO2 ABG pO2 ABG HCO3 ABG Base Excess ABG Hemoglobin Oxyhemoglobin Sodium 135 L 135 L Potassium 3.5 L Chloride 93.6 L 94.4 L Carbon Dioxide 17 L 21 L BUN 45 H 28 H Creatinine 3.3 H 2.5 H Glucose 106 H POC Glucose Lactic Acid Calcium 7.3 L 7.1 L Ionized Calcium Phosphorus Magnesium Direct Bilirubin AST ALT Alkaline Phosphatase Lactate Dehydrogenase Troponin T C-Reactive Protein Total Protein Albumin Prealbumin Triglycerides Cholesterol LDL Cholesterol Direct HDL Cholesterol 25-OH Vitamin D Total PTH Intact Urine pH Urine WBC (Auto) Urine Creatinine Urine Total Protein Fluid Total Protein Vancomycin Trough Rheumatoid Factor Complement C4 Miscellaneous Test Crossmatch 09/28/16 09/28/16 09/28/16 03:45 07:25 11:58 WBC 13.3 H RBC 3.01 L Hgb 8.4 L Hct 25.0 L MCV MCH MCHC RDW 20.5 H Plt Count 128 L Lymph % (Auto) Benzie % (Auto) Lymph # Benzie # Baso # Seg Neutrophils % Seg Neuts % (Manual) Lymphocytes % (Manual) 7.0 L Monocytes % (Manual) Eosinophils % (Manual) 6.0 H Basophils % (Manual) Nucleated RBC % Seg Neutrophils # Seg Neutrophils # Man Lymphocytes # (Manual) 0.9 L Monocytes # (Manual) Eosinophils # (Manual) 0.8 H Basophils # (Manual) PT INR Fibrinogen dRVVT Confirm Interp Factor V Activity POC ABG pH POC ABG pCO2 POC ABG pO2 ABG pO2 ABG HCO3 ABG Base Excess ABG Hemoglobin Oxyhemoglobin Sodium Potassium Chloride Carbon Dioxide BUN Creatinine Glucose POC Glucose 121 H Lactic Acid 4.50 H* Calcium Ionized Calcium Phosphorus Magnesium Direct Bilirubin AST ALT Alkaline Phosphatase Lactate Dehydrogenase Troponin T C-Reactive Protein Total Protein Albumin Prealbumin Triglycerides Cholesterol LDL Cholesterol Direct HDL Cholesterol 25-OH Vitamin D Total PTH Intact Urine pH Urine WBC (Auto) Urine Creatinine Urine Total Protein Fluid Total Protein Vancomycin Trough Rheumatoid Factor Complement C4 Miscellaneous Test Crossmatch 09/29/16 09/29/16 09/29/16 06:45 06:45 06:45 WBC 14.9 H RBC 2.74 L Hgb 7.6 L Hct 23.2 L MCV MCH MCHC RDW 20.5 H Plt Count 81 L Lymph % (Auto) Benzie % (Auto) Lymph # Benzie # Baso # Seg Neutrophils % Seg Neuts % (Manual) 81.0 H Lymphocytes % (Manual) 4.0 L Monocytes % (Manual) Eosinophils % (Manual) Basophils % (Manual) Nucleated RBC % Seg Neutrophils # Seg Neutrophils # Man 12.1 H Lymphocytes # (Manual) 0.6 L Monocytes # (Manual) Eosinophils # (Manual) Basophils # (Manual) PT INR Fibrinogen dRVVT Confirm Interp Factor V Activity POC ABG pH POC ABG pCO2 POC ABG pO2 ABG pO2 ABG HCO3 ABG Base Excess ABG Hemoglobin Oxyhemoglobin Sodium 133 L Potassium 3.4 L Chloride 92.5 L Carbon Dioxide 21 L BUN 33 H Creatinine 3.0 H Glucose POC Glucose Lactic Acid Calcium 6.6 L Ionized Calcium Phosphorus Magnesium 1.40 L Direct Bilirubin 0.9 H AST ALT Alkaline Phosphatase Lactate Dehydrogenase Troponin T C-Reactive Protein Total Protein 4.3 L Albumin 1.3 L Prealbumin Triglycerides Cholesterol LDL Cholesterol Direct HDL Cholesterol 25-OH Vitamin D Total PTH Intact Urine pH Urine WBC (Auto) Urine Creatinine Urine Total Protein Fluid Total Protein Vancomycin Trough Rheumatoid Factor Complement C4 Miscellaneous Test Crossmatch 09/29/16 09/29/16 09/30/16 17:52 20:12 00:07 WBC RBC Hgb Hct MCV MCH MCHC RDW Plt Count Lymph % (Auto) Benzie % (Auto) Lymph # Benzie # Baso # Seg Neutrophils % Seg Neuts % (Manual) Lymphocytes % (Manual) Monocytes % (Manual) Eosinophils % (Manual) Basophils % (Manual) Nucleated RBC % Seg Neutrophils # Seg Neutrophils # Man Lymphocytes # (Manual) Monocytes # (Manual) Eosinophils # (Manual) Basophils # (Manual) PT INR Fibrinogen dRVVT Confirm Interp Factor V Activity POC ABG pH POC ABG pCO2 POC ABG pO2 ABG pO2 ABG HCO3 ABG Base Excess ABG Hemoglobin Oxyhemoglobin Sodium Potassium Chloride Carbon Dioxide BUN Creatinine Glucose POC Glucose 50 L 51 L Lactic Acid Calcium Ionized Calcium Phosphorus Magnesium Direct Bilirubin AST ALT Alkaline Phosphatase Lactate Dehydrogenase Troponin T 0.204 H* C-Reactive Protein Total Protein Albumin Prealbumin Triglycerides Cholesterol 31 L LDL Cholesterol Direct 4 L HDL Cholesterol 3 L 25-OH Vitamin D Total PTH Intact Urine pH Urine WBC (Auto) Urine Creatinine Urine Total Protein Fluid Total Protein Vancomycin Trough Rheumatoid Factor Complement C4 Miscellaneous Test Crossmatch 09/30/16 09/30/16 09/30/16 01:30 05:15 06:10 WBC RBC Hgb Hct MCV MCH MCHC RDW Plt Count Lymph % (Auto) Benzie % (Auto) Lymph # Benzie # Baso # Seg Neutrophils % Seg Neuts % (Manual) Lymphocytes % (Manual) Monocytes % (Manual) Eosinophils % (Manual) Basophils % (Manual) Nucleated RBC % Seg Neutrophils # Seg Neutrophils # Man Lymphocytes # (Manual) Monocytes # (Manual) Eosinophils # (Manual) Basophils # (Manual) PT INR Fibrinogen dRVVT Confirm Interp Factor V Activity POC ABG pH POC ABG pCO2 POC ABG pO2 ABG pO2 ABG HCO3 ABG Base Excess ABG Hemoglobin Oxyhemoglobin Sodium 133 L Potassium 3.2 L Chloride 93.2 L Carbon Dioxide 19 L BUN 36 H Creatinine 3.2 H Glucose 104 H POC Glucose 167 H 146 H Lactic Acid Calcium 6.4 L Ionized Calcium Phosphorus Magnesium 1.60 L Direct Bilirubin AST ALT Alkaline Phosphatase Lactate Dehydrogenase Troponin T C-Reactive Protein Total Protein Albumin Prealbumin Triglycerides Cholesterol LDL Cholesterol Direct HDL Cholesterol 25-OH Vitamin D Total PTH Intact Urine pH Urine WBC (Auto) Urine Creatinine Urine Total Protein Fluid Total Protein Vancomycin Trough Rheumatoid Factor Complement C4 Miscellaneous Test Crossmatch 09/30/16 09/30/16 09/30/16 11:26 13:39 18:38 WBC RBC Hgb Hct MCV MCH MCHC RDW Plt Count Lymph % (Auto) Benzie % (Auto) Lymph # Benzie # Baso # Seg Neutrophils % Seg Neuts % (Manual) Lymphocytes % (Manual) Monocytes % (Manual) Eosinophils % (Manual) Basophils % (Manual) Nucleated RBC % Seg Neutrophils # Seg Neutrophils # Man Lymphocytes # (Manual) Monocytes # (Manual) Eosinophils # (Manual) Basophils # (Manual) PT INR Fibrinogen dRVVT Confirm Interp Factor V Activity POC ABG pH 7.479 H POC ABG pCO2 29.8 L POC ABG pO2 117 H ABG pO2 ABG HCO3 ABG Base Excess ABG Hemoglobin Oxyhemoglobin Sodium Potassium Chloride Carbon Dioxide BUN Creatinine Glucose POC Glucose 140 H 122 H Lactic Acid Calcium Ionized Calcium Phosphorus Magnesium Direct Bilirubin AST ALT Alkaline Phosphatase Lactate Dehydrogenase Troponin T C-Reactive Protein Total Protein Albumin Prealbumin Triglycerides Cholesterol LDL Cholesterol Direct HDL Cholesterol 25-OH Vitamin D Total PTH Intact Urine pH Urine WBC (Auto) Urine Creatinine Urine Total Protein Fluid Total Protein Vancomycin Trough Rheumatoid Factor Complement C4 Miscellaneous Test Crossmatch 10/01/16 10/01/16 10/01/16 06:00 06:00 12:37 WBC 12.6 H RBC 2.75 L Hgb 7.3 L Hct 23.3 L MCV MCH 27 L MCHC RDW 20.6 H Plt Count 72 L Lymph % (Auto) Benzie % (Auto) Lymph # Benzie # Baso # Seg Neutrophils % Seg Neuts % (Manual) 31.0 L Lymphocytes % (Manual) 8.0 L Monocytes % (Manual) Eosinophils % (Manual) Basophils % (Manual) Nucleated RBC % 3.0 H Seg Neutrophils # Seg Neutrophils # Man Lymphocytes # (Manual) 1.0 L Monocytes # (Manual) Eosinophils # (Manual) Basophils # (Manual) PT INR Fibrinogen dRVVT Confirm Interp Factor V Activity POC ABG pH POC ABG pCO2 POC ABG pO2 ABG pO2 ABG HCO3 ABG Base Excess ABG Hemoglobin Oxyhemoglobin Sodium 127 L Potassium Chloride 86.8 L Carbon Dioxide 20 L BUN 42 H Creatinine 3.5 H Glucose POC Glucose 65 L Lactic Acid Calcium 7.0 L Ionized Calcium Phosphorus Magnesium Direct Bilirubin AST ALT Alkaline Phosphatase Lactate Dehydrogenase Troponin T C-Reactive Protein Total Protein Albumin Prealbumin Triglycerides Cholesterol LDL Cholesterol Direct HDL Cholesterol 25-OH Vitamin D Total PTH Intact Urine pH Urine WBC (Auto) Urine Creatinine Urine Total Protein Fluid Total Protein Vancomycin Trough Rheumatoid Factor Complement C4 Miscellaneous Test Crossmatch 10/01/16 10/01/16 10/02/16 17:39 23:32 00:59 WBC RBC Hgb Hct MCV MCH MCHC RDW Plt Count Lymph % (Auto) Benzie % (Auto) Lymph # Benzie # Baso # Seg Neutrophils % Seg Neuts % (Manual) Lymphocytes % (Manual) Monocytes % (Manual) Eosinophils % (Manual) Basophils % (Manual) Nucleated RBC % Seg Neutrophils # Seg Neutrophils # Man Lymphocytes # (Manual) Monocytes # (Manual) Eosinophils # (Manual) Basophils # (Manual) PT INR Fibrinogen dRVVT Confirm Interp Factor V Activity POC ABG pH POC ABG pCO2 POC ABG pO2 ABG pO2 ABG HCO3 ABG Base Excess ABG Hemoglobin Oxyhemoglobin Sodium Potassium Chloride Carbon Dioxide BUN Creatinine Glucose POC Glucose 107 H 52 L 145 H Lactic Acid Calcium Ionized Calcium Phosphorus Magnesium Direct Bilirubin AST ALT Alkaline Phosphatase Lactate Dehydrogenase Troponin T C-Reactive Protein Total Protein Albumin Prealbumin Triglycerides Cholesterol LDL Cholesterol Direct HDL Cholesterol 25-OH Vitamin D Total PTH Intact Urine pH Urine WBC (Auto) Urine Creatinine Urine Total Protein Fluid Total Protein Vancomycin Trough Rheumatoid Factor Complement C4 Miscellaneous Test Crossmatch 10/02/16 10/02/16 10/02/16 10:30 10:50 10:50 WBC 14.7 H RBC 2.76 L Hgb 7.4 L Hct 23.6 L MCV MCH 27 L MCHC RDW 20.2 H Plt Count 79 L Lymph % (Auto) Benzie % (Auto) Lymph # Benzie # Baso # Seg Neutrophils % Seg Neuts % (Manual) 86.0 H Lymphocytes % (Manual) 6.0 L Monocytes % (Manual) Eosinophils % (Manual) Basophils % (Manual) Nucleated RBC % Seg Neutrophils # Seg Neutrophils # Man 12.6 H Lymphocytes # (Manual) 0.9 L Monocytes # (Manual) Eosinophils # (Manual) Basophils # (Manual) PT INR Fibrinogen dRVVT Confirm Interp Factor V Activity POC ABG pH 7.486 H POC ABG pCO2 30.1 L POC ABG pO2 108 H ABG pO2 ABG HCO3 ABG Base Excess ABG Hemoglobin Oxyhemoglobin Sodium 131 L Potassium 3.4 L Chloride 89.9 L Carbon Dioxide BUN 26 H Creatinine 2.6 H Glucose POC Glucose Lactic Acid Calcium 7.0 L Ionized Calcium Phosphorus Magnesium Direct Bilirubin AST ALT Alkaline Phosphatase Lactate Dehydrogenase Troponin T C-Reactive Protein Total Protein Albumin Prealbumin Triglycerides Cholesterol LDL Cholesterol Direct HDL Cholesterol 25-OH Vitamin D Total PTH Intact Urine pH Urine WBC (Auto) Urine Creatinine Urine Total Protein Fluid Total Protein Vancomycin Trough Rheumatoid Factor Complement C4 Miscellaneous Test Crossmatch 10/02/16 10/03/16 10/03/16 23:45 00:45 05:10 WBC 12.9 H RBC 2.77 L Hgb 7.6 L Hct 23.7 L MCV MCH 27 L MCHC RDW 19.7 H Plt Count 89 L Lymph % (Auto) Benzie % (Auto) Lymph # Benzie # Baso # Seg Neutrophils % Seg Neuts % (Manual) Lymphocytes % (Manual) 8.0 L Monocytes % (Manual) Eosinophils % (Manual) Basophils % (Manual) Nucleated RBC % Seg Neutrophils # 11.9 H Seg Neutrophils # Man Lymphocytes # (Manual) 1.0 L Monocytes # (Manual) Eosinophils # (Manual) Basophils # (Manual) PT INR Fibrinogen dRVVT Confirm Interp Factor V Activity POC ABG pH POC ABG pCO2 POC ABG pO2 ABG pO2 ABG HCO3 ABG Base Excess ABG Hemoglobin Oxyhemoglobin Sodium Potassium Chloride Carbon Dioxide BUN Creatinine Glucose POC Glucose 55 L 199 H Lactic Acid Calcium Ionized Calcium Phosphorus Magnesium Direct Bilirubin AST ALT Alkaline Phosphatase Lactate Dehydrogenase Troponin T C-Reactive Protein Total Protein Albumin Prealbumin Triglycerides Cholesterol LDL Cholesterol Direct HDL Cholesterol 25-OH Vitamin D Total PTH Intact Urine pH Urine WBC (Auto) Urine Creatinine Urine Total Protein Fluid Total Protein Vancomycin Trough Rheumatoid Factor Complement C4 Miscellaneous Test Crossmatch 10/03/16 10/03/16 10/03/16 05:10 12:14 13:18 WBC RBC Hgb Hct MCV MCH MCHC RDW Plt Count Lymph % (Auto) Benzie % (Auto) Lymph # Benzie # Baso # Seg Neutrophils % Seg Neuts % (Manual) Lymphocytes % (Manual) Monocytes % (Manual) Eosinophils % (Manual) Basophils % (Manual) Nucleated RBC % Seg Neutrophils # Seg Neutrophils # Man Lymphocytes # (Manual) Monocytes # (Manual) Eosinophils # (Manual) Basophils # (Manual) PT INR Fibrinogen dRVVT Confirm Interp Factor V Activity POC ABG pH POC ABG pCO2 POC ABG pO2 ABG pO2 ABG HCO3 ABG Base Excess ABG Hemoglobin Oxyhemoglobin Sodium 129 L Potassium 3.3 L Chloride 88.8 L Carbon Dioxide 20 L BUN 29 H Creatinine 2.8 H Glucose POC Glucose 68 L 127 H Lactic Acid Calcium 7.2 L Ionized Calcium Phosphorus Magnesium Direct Bilirubin AST ALT Alkaline Phosphatase Lactate Dehydrogenase Troponin T C-Reactive Protein Total Protein Albumin Prealbumin Triglycerides Cholesterol LDL Cholesterol Direct HDL Cholesterol 25-OH Vitamin D Total PTH Intact Urine pH Urine WBC (Auto) Urine Creatinine Urine Total Protein Fluid Total Protein Vancomycin Trough Rheumatoid Factor Complement C4 Miscellaneous Test Crossmatch 10/03/16 10/03/16 10/03/16 14:42 18:21 19:09 WBC RBC Hgb Hct MCV MCH MCHC RDW Plt Count Lymph % (Auto) Benzie % (Auto) Lymph # Benzie # Baso # Seg Neutrophils % Seg Neuts % (Manual) Lymphocytes % (Manual) Monocytes % (Manual) Eosinophils % (Manual) Basophils % (Manual) Nucleated RBC % Seg Neutrophils # Seg Neutrophils # Man Lymphocytes # (Manual) Monocytes # (Manual) Eosinophils # (Manual) Basophils # (Manual) PT INR Fibrinogen dRVVT Confirm Interp Factor V Activity POC ABG pH 7.499 H POC ABG pCO2 28.4 L POC ABG pO2 44 L ABG pO2 ABG HCO3 ABG Base Excess ABG Hemoglobin Oxyhemoglobin Sodium Potassium Chloride Carbon Dioxide BUN Creatinine Glucose POC Glucose 64 L 205 H Lactic Acid Calcium Ionized Calcium Phosphorus Magnesium Direct Bilirubin AST ALT Alkaline Phosphatase Lactate Dehydrogenase Troponin T C-Reactive Protein Total Protein Albumin Prealbumin Triglycerides Cholesterol LDL Cholesterol Direct HDL Cholesterol 25-OH Vitamin D Total PTH Intact Urine pH Urine WBC (Auto) Urine Creatinine Urine Total Protein Fluid Total Protein Vancomycin Trough Rheumatoid Factor Complement C4 Miscellaneous Test Crossmatch 10/03/16 10/04/16 10/04/16 23:33 04:18 06:30 WBC RBC 2.54 L Hgb 7.1 L Hct 21.7 L MCV MCH MCHC RDW 19.5 H Plt Count 76 L Lymph % (Auto) Benzie % (Auto) Lymph # Benzie # Baso # Seg Neutrophils % Seg Neuts % (Manual) 88.0 H Lymphocytes % (Manual) 6.0 L Monocytes % (Manual) Eosinophils % (Manual) Basophils % (Manual) Nucleated RBC % Seg Neutrophils # Seg Neutrophils # Man 8.8 H Lymphocytes # (Manual) 0.6 L Monocytes # (Manual) Eosinophils # (Manual) Basophils # (Manual) PT INR Fibrinogen dRVVT Confirm Interp Factor V Activity POC ABG pH 7.461 H POC ABG pCO2 33.6 L POC ABG pO2 211 H ABG pO2 ABG HCO3 ABG Base Excess ABG Hemoglobin Oxyhemoglobin Sodium Potassium Chloride Carbon Dioxide BUN Creatinine Glucose POC Glucose 136 H Lactic Acid Calcium Ionized Calcium Phosphorus Magnesium Direct Bilirubin AST ALT Alkaline Phosphatase Lactate Dehydrogenase Troponin T C-Reactive Protein Total Protein Albumin Prealbumin Triglycerides Cholesterol LDL Cholesterol Direct HDL Cholesterol 25-OH Vitamin D Total PTH Intact Urine pH Urine WBC (Auto) Urine Creatinine Urine Total Protein Fluid Total Protein Vancomycin Trough Rheumatoid Factor Complement C4 Miscellaneous Test Crossmatch 10/04/16 10/04/16 10/04/16 06:30 11:45 17:54 WBC RBC Hgb Hct MCV MCH MCHC RDW Plt Count Lymph % (Auto) Benzie % (Auto) Lymph # Benzie # Baso # Seg Neutrophils % Seg Neuts % (Manual) Lymphocytes % (Manual) Monocytes % (Manual) Eosinophils % (Manual) Basophils % (Manual) Nucleated RBC % Seg Neutrophils # Seg Neutrophils # Man Lymphocytes # (Manual) Monocytes # (Manual) Eosinophils # (Manual) Basophils # (Manual) PT INR Fibrinogen dRVVT Confirm Interp Factor V Activity POC ABG pH POC ABG pCO2 POC ABG pO2 ABG pO2 ABG HCO3 ABG Base Excess ABG Hemoglobin Oxyhemoglobin Sodium 128 L Potassium Chloride 87.4 L Carbon Dioxide 20 L BUN 34 H Creatinine 2.9 H Glucose 127 H POC Glucose 158 H 160 H Lactic Acid Calcium 7.4 L Ionized Calcium Phosphorus Magnesium Direct Bilirubin AST ALT Alkaline Phosphatase Lactate Dehydrogenase Troponin T C-Reactive Protein Total Protein Albumin Prealbumin Triglycerides Cholesterol LDL Cholesterol Direct HDL Cholesterol 25-OH Vitamin D Total PTH Intact Urine pH Urine WBC (Auto) Urine Creatinine Urine Total Protein Fluid Total Protein Vancomycin Trough Rheumatoid Factor Complement C4 Miscellaneous Test Crossmatch 10/04/16 10/05/16 10/05/16 23:25 04:30 05:00 WBC RBC 2.64 L Hgb 7.5 L Hct 22.6 L MCV MCH MCHC RDW 19.3 H Plt Count 80 L Lymph % (Auto) Benzie % (Auto) Lymph # Benzie # Baso # Seg Neutrophils % Seg Neuts % (Manual) Lymphocytes % (Manual) 12.0 L Monocytes % (Manual) Eosinophils % (Manual) Basophils % (Manual) Nucleated RBC % Seg Neutrophils # Seg Neutrophils # Man Lymphocytes # (Manual) Monocytes # (Manual) Eosinophils # (Manual) Basophils # (Manual) PT INR Fibrinogen dRVVT Confirm Interp Factor V Activity POC ABG pH 7.475 H POC ABG pCO2 33.3 L POC ABG pO2 140 H ABG pO2 ABG HCO3 ABG Base Excess ABG Hemoglobin Oxyhemoglobin Sodium Potassium Chloride Carbon Dioxide BUN Creatinine Glucose POC Glucose 141 H Lactic Acid Calcium Ionized Calcium Phosphorus Magnesium Direct Bilirubin AST ALT Alkaline Phosphatase Lactate Dehydrogenase Troponin T C-Reactive Protein Total Protein Albumin Prealbumin Triglycerides Cholesterol LDL Cholesterol Direct HDL Cholesterol 25-OH Vitamin D Total PTH Intact Urine pH Urine WBC (Auto) Urine Creatinine Urine Total Protein Fluid Total Protein Vancomycin Trough Rheumatoid Factor Complement C4 Miscellaneous Test Crossmatch 10/05/16 10/05/16 10/05/16 05:00 05:09 12:58 WBC RBC Hgb Hct MCV MCH MCHC RDW Plt Count Lymph % (Auto) Benzie % (Auto) Lymph # Benzie # Baso # Seg Neutrophils % Seg Neuts % (Manual) Lymphocytes % (Manual) Monocytes % (Manual) Eosinophils % (Manual) Basophils % (Manual) Nucleated RBC % Seg Neutrophils # Seg Neutrophils # Man Lymphocytes # (Manual) Monocytes # (Manual) Eosinophils # (Manual) Basophils # (Manual) PT INR Fibrinogen dRVVT Confirm Interp Factor V Activity POC ABG pH POC ABG pCO2 POC ABG pO2 ABG pO2 ABG HCO3 ABG Base Excess ABG Hemoglobin Oxyhemoglobin Sodium 131 L Potassium Chloride 94.0 L Carbon Dioxide 20 L BUN 22 H Creatinine 2.0 H Glucose 123 H POC Glucose 166 H 179 H Lactic Acid Calcium 7.7 L Ionized Calcium Phosphorus 2.20 L D Magnesium Direct Bilirubin AST ALT Alkaline Phosphatase Lactate Dehydrogenase Troponin T C-Reactive Protein Total Protein Albumin Prealbumin Triglycerides Cholesterol LDL Cholesterol Direct HDL Cholesterol 25-OH Vitamin D Total PTH Intact Urine pH Urine WBC (Auto) Urine Creatinine Urine Total Protein Fluid Total Protein Vancomycin Trough Rheumatoid Factor Complement C4 Miscellaneous Test Crossmatch 10/05/16 10/05/16 10/05/16 15:50 18:53 23:12 WBC RBC Hgb Hct MCV MCH MCHC RDW Plt Count Lymph % (Auto) Benzie % (Auto) Lymph # Benzie # Baso # Seg Neutrophils % Seg Neuts % (Manual) Lymphocytes % (Manual) Monocytes % (Manual) Eosinophils % (Manual) Basophils % (Manual) Nucleated RBC % Seg Neutrophils # Seg Neutrophils # Man Lymphocytes # (Manual) Monocytes # (Manual) Eosinophils # (Manual) Basophils # (Manual) PT INR Fibrinogen dRVVT Confirm Interp Factor V Activity POC ABG pH POC ABG pCO2 POC ABG pO2 ABG pO2 ABG HCO3 ABG Base Excess ABG Hemoglobin Oxyhemoglobin Sodium Potassium Chloride Carbon Dioxide BUN Creatinine Glucose POC Glucose 150 H 164 H Lactic Acid Calcium Ionized Calcium Phosphorus Magnesium Direct Bilirubin AST ALT Alkaline Phosphatase Lactate Dehydrogenase Troponin T C-Reactive Protein Total Protein Albumin Prealbumin Triglycerides Cholesterol LDL Cholesterol Direct HDL Cholesterol 25-OH Vitamin D Total PTH Intact Urine pH Urine WBC (Auto) Urine Creatinine Urine Total Protein Fluid Total Protein Vancomycin Trough Rheumatoid Factor Complement C4 Miscellaneous Test Crossmatch See Detail 10/06/16 10/06/16 10/06/16 03:50 03:50 04:53 WBC RBC 3.00 L Hgb 8.6 L Hct 25.8 L MCV MCH MCHC RDW 17.9 H Plt Count 65 L Lymph % (Auto) Benzie % (Auto) Lymph # Benzie # Baso # Seg Neutrophils % Seg Neuts % (Manual) 30.0 L Lymphocytes % (Manual) 5.0 L Monocytes % (Manual) Eosinophils % (Manual) Basophils % (Manual) Nucleated RBC % Seg Neutrophils # Seg Neutrophils # Man Lymphocytes # (Manual) 0.4 L Monocytes # (Manual) Eosinophils # (Manual) Basophils # (Manual) PT INR Fibrinogen dRVVT Confirm Interp Factor V Activity POC ABG pH 7.310 L POC ABG pCO2 49.0 H POC ABG pO2 ABG pO2 ABG HCO3 ABG Base Excess ABG Hemoglobin Oxyhemoglobin Sodium 133 L Potassium Chloride 95.9 L Carbon Dioxide BUN 26 H Creatinine 2.0 H Glucose 116 H POC Glucose Lactic Acid Calcium 7.8 L Ionized Calcium Phosphorus Magnesium Direct Bilirubin AST ALT Alkaline Phosphatase Lactate Dehydrogenase Troponin T C-Reactive Protein Total Protein Albumin Prealbumin Triglycerides Cholesterol LDL Cholesterol Direct HDL Cholesterol 25-OH Vitamin D Total PTH Intact Urine pH Urine WBC (Auto) Urine Creatinine Urine Total Protein Fluid Total Protein Vancomycin Trough Rheumatoid Factor Complement C4 Miscellaneous Test Crossmatch 10/06/16 10/06/16 10/06/16 05:23 11:52 18:34 WBC RBC Hgb Hct MCV MCH MCHC RDW Plt Count Lymph % (Auto) Benzie % (Auto) Lymph # Benzie # Baso # Seg Neutrophils % Seg Neuts % (Manual) Lymphocytes % (Manual) Monocytes % (Manual) Eosinophils % (Manual) Basophils % (Manual) Nucleated RBC % Seg Neutrophils # Seg Neutrophils # Man Lymphocytes # (Manual) Monocytes # (Manual) Eosinophils # (Manual) Basophils # (Manual) PT INR Fibrinogen dRVVT Confirm Interp Factor V Activity POC ABG pH POC ABG pCO2 POC ABG pO2 ABG pO2 ABG HCO3 ABG Base Excess ABG Hemoglobin Oxyhemoglobin Sodium Potassium Chloride Carbon Dioxide BUN Creatinine Glucose POC Glucose 126 H 116 H 129 H Lactic Acid Calcium Ionized Calcium Phosphorus Magnesium Direct Bilirubin AST ALT Alkaline Phosphatase Lactate Dehydrogenase Troponin T C-Reactive Protein Total Protein Albumin Prealbumin Triglycerides Cholesterol LDL Cholesterol Direct HDL Cholesterol 25-OH Vitamin D Total PTH Intact Urine pH Urine WBC (Auto) Urine Creatinine Urine Total Protein Fluid Total Protein Vancomycin Trough Rheumatoid Factor Complement C4 Miscellaneous Test Crossmatch 10/07/16 10/07/16 10/07/16 03:45 05:00 10:00 WBC 17.0 H RBC 2.68 L Hgb 7.3 L Hct 25.3 L MCV MCH 27 L MCHC 29 L RDW 19.6 H Plt Count 74 L Lymph % (Auto) Benzie % (Auto) Lymph # Benzie # Baso # Seg Neutrophils % Seg Neuts % (Manual) Lymphocytes % (Manual) 12.0 L Monocytes % (Manual) Eosinophils % (Manual) Basophils % (Manual) Nucleated RBC % 4.0 H Seg Neutrophils # Seg Neutrophils # Man 10.7 H Lymphocytes # (Manual) Monocytes # (Manual) Eosinophils # (Manual) Basophils # (Manual) PT INR Fibrinogen dRVVT Confirm Interp Factor V Activity POC ABG pH POC ABG pCO2 POC ABG pO2 ABG pO2 ABG HCO3 ABG Base Excess ABG Hemoglobin Oxyhemoglobin Sodium 130 L Potassium 3.2 L Chloride 93.9 L Carbon Dioxide 20 L BUN 44 H Creatinine 2.7 H Glucose 129 H POC Glucose Lactic Acid Calcium 7.4 L Ionized Calcium Phosphorus Magnesium Direct Bilirubin AST ALT 6 L Alkaline Phosphatase 195 H Lactate Dehydrogenase Troponin T C-Reactive Protein Total Protein 4.9 L Albumin 1.0 L Prealbumin Triglycerides Cholesterol LDL Cholesterol Direct HDL Cholesterol 25-OH Vitamin D Total PTH Intact Urine pH Urine WBC (Auto) Urine Creatinine Urine Total Protein Fluid Total Protein Vancomycin Trough Rheumatoid Factor Complement C4 Miscellaneous Test Flexitest 1 H Crossmatch 10/07/16 10/07/16 10/07/16 10:00 11:24 18:10 WBC RBC Hgb Hct MCV MCH MCHC RDW Plt Count Lymph % (Auto) Benzie % (Auto) Lymph # Benzie # Baso # Seg Neutrophils % Seg Neuts % (Manual) Lymphocytes % (Manual) Monocytes % (Manual) Eosinophils % (Manual) Basophils % (Manual) Nucleated RBC % Seg Neutrophils # Seg Neutrophils # Man Lymphocytes # (Manual) Monocytes # (Manual) Eosinophils # (Manual) Basophils # (Manual) PT INR Fibrinogen dRVVT Confirm Interp Factor V Activity POC ABG pH POC ABG pCO2 POC ABG pO2 ABG pO2 ABG HCO3 ABG Base Excess ABG Hemoglobin Oxyhemoglobin Sodium Potassium Chloride Carbon Dioxide BUN Creatinine Glucose POC Glucose 116 H 130 H Lactic Acid Calcium Ionized Calcium Phosphorus Magnesium Direct Bilirubin AST ALT Alkaline Phosphatase Lactate Dehydrogenase Troponin T C-Reactive Protein 19.40 H Total Protein Albumin Prealbumin Triglycerides Cholesterol LDL Cholesterol Direct HDL Cholesterol 25-OH Vitamin D Total PTH Intact Urine pH Urine WBC (Auto) Urine Creatinine Urine Total Protein Fluid Total Protein Vancomycin Trough Rheumatoid Factor Complement C4 Miscellaneous Test Crossmatch 10/07/16 10/08/16 10/08/16 18:30 00:00 04:00 WBC RBC Hgb Hct MCV MCH MCHC RDW Plt Count Lymph % (Auto) Benzie % (Auto) Lymph # Benzie # Baso # Seg Neutrophils % Seg Neuts % (Manual) Lymphocytes % (Manual) Monocytes % (Manual) Eosinophils % (Manual) Basophils % (Manual) Nucleated RBC % Seg Neutrophils # Seg Neutrophils # Man Lymphocytes # (Manual) Monocytes # (Manual) Eosinophils # (Manual) Basophils # (Manual) PT INR Fibrinogen dRVVT Confirm Interp Factor V Activity POC ABG pH POC ABG pCO2 POC ABG pO2 ABG pO2 ABG HCO3 ABG Base Excess ABG Hemoglobin Oxyhemoglobin Sodium 132 L Potassium 3.3 L Chloride 93.6 L Carbon Dioxide 17 L BUN 59 H Creatinine 2.7 H Glucose 121 H POC Glucose 122 H Lactic Acid Calcium 7.6 L Ionized Calcium Phosphorus Magnesium Direct Bilirubin AST ALT Alkaline Phosphatase Lactate Dehydrogenase Troponin T C-Reactive Protein Total Protein Albumin Prealbumin Triglycerides Cholesterol LDL Cholesterol Direct HDL Cholesterol 25-OH Vitamin D Total PTH Intact Urine pH Urine WBC (Auto) > 182.0 H Urine Creatinine Urine Total Protein Fluid Total Protein Vancomycin Trough Rheumatoid Factor Complement C4 Miscellaneous Test Crossmatch 10/08/16 10/08/16 10/08/16 04:30 05:30 11:51 WBC RBC 5.15 H Hgb 14.4 H D Hct 44.5 H D MCV MCH MCHC RDW 19.5 H Plt Count 56 L Lymph % (Auto) Benzie % (Auto) Lymph # Benzie # Baso # Seg Neutrophils % Seg Neuts % (Manual) 24.0 L Lymphocytes % (Manual) 8.0 L Monocytes % (Manual) Eosinophils % (Manual) Basophils % (Manual) Nucleated RBC % 9.0 H Seg Neutrophils # Seg Neutrophils # Man Lymphocytes # (Manual) 0.7 L Monocytes # (Manual) Eosinophils # (Manual) Basophils # (Manual) PT INR Fibrinogen dRVVT Confirm Interp Factor V Activity POC ABG pH POC ABG pCO2 POC ABG pO2 ABG pO2 ABG HCO3 ABG Base Excess ABG Hemoglobin Oxyhemoglobin Sodium Potassium Chloride Carbon Dioxide BUN Creatinine Glucose POC Glucose 125 H 150 H Lactic Acid Calcium Ionized Calcium Phosphorus Magnesium Direct Bilirubin AST ALT Alkaline Phosphatase Lactate Dehydrogenase Troponin T C-Reactive Protein Total Protein Albumin Prealbumin Triglycerides Cholesterol LDL Cholesterol Direct HDL Cholesterol 25-OH Vitamin D Total PTH Intact Urine pH Urine WBC (Auto) Urine Creatinine Urine Total Protein Fluid Total Protein Vancomycin Trough Rheumatoid Factor Complement C4 Miscellaneous Test Crossmatch 10/08/16 10/08/16 10/08/16 12:49 17:07 19:30 WBC RBC Hgb 7.1 L D Hct 22.4 L D MCV MCH MCHC RDW Plt Count Lymph % (Auto) Benzie % (Auto) Lymph # Benzie # Baso # Seg Neutrophils % Seg Neuts % (Manual) Lymphocytes % (Manual) Monocytes % (Manual) Eosinophils % (Manual) Basophils % (Manual) Nucleated RBC % Seg Neutrophils # Seg Neutrophils # Man Lymphocytes # (Manual) Monocytes # (Manual) Eosinophils # (Manual) Basophils # (Manual) PT INR Fibrinogen dRVVT Confirm Interp Factor V Activity POC ABG pH POC ABG pCO2 28.2 L POC ABG pO2 111 H ABG pO2 ABG HCO3 ABG Base Excess ABG Hemoglobin Oxyhemoglobin Sodium Potassium Chloride Carbon Dioxide BUN Creatinine Glucose POC Glucose 145 H Lactic Acid Calcium Ionized Calcium Phosphorus Magnesium Direct Bilirubin AST ALT Alkaline Phosphatase Lactate Dehydrogenase Troponin T C-Reactive Protein Total Protein Albumin Prealbumin Triglycerides Cholesterol LDL Cholesterol Direct HDL Cholesterol 25-OH Vitamin D Total PTH Intact Urine pH Urine WBC (Auto) Urine Creatinine Urine Total Protein Fluid Total Protein Vancomycin Trough Rheumatoid Factor Complement C4 Miscellaneous Test Crossmatch 10/08/16 10/09/16 10/09/16 19:30 03:45 03:45 WBC 12.6 H RBC 2.36 L Hgb 6.7 L Hct 21.1 L MCV MCH MCHC RDW 19.5 H Plt Count 75 L Lymph % (Auto) Benzie % (Auto) Lymph # Benzie # Baso # Seg Neutrophils % Seg Neuts % (Manual) Lymphocytes % (Manual) Monocytes % (Manual) 10.0 H Eosinophils % (Manual) Basophils % (Manual) Nucleated RBC % 3.0 H Seg Neutrophils # Seg Neutrophils # Man Lymphocytes # (Manual) Monocytes # (Manual) 1.3 H Eosinophils # (Manual) Basophils # (Manual) PT 18.0 H INR 1.41 H Fibrinogen dRVVT Confirm Interp Factor V Activity POC ABG pH POC ABG pCO2 POC ABG pO2 ABG pO2 ABG HCO3 ABG Base Excess ABG Hemoglobin Oxyhemoglobin Sodium 135 L Potassium Chloride Carbon Dioxide 17 L BUN 81 H Creatinine 3.2 H Glucose 109 H POC Glucose Lactic Acid Calcium 7.4 L Ionized Calcium Phosphorus 4.60 H D Magnesium Direct Bilirubin AST ALT Alkaline Phosphatase Lactate Dehydrogenase Troponin T C-Reactive Protein Total Protein Albumin Prealbumin Triglycerides Cholesterol LDL Cholesterol Direct HDL Cholesterol 25-OH Vitamin D Total PTH Intact Urine pH Urine WBC (Auto) Urine Creatinine Urine Total Protein Fluid Total Protein Vancomycin Trough Rheumatoid Factor Complement C4 Miscellaneous Test Crossmatch 10/09/16 10/09/16 10/09/16 03:45 05:14 07:20 WBC RBC Hgb Hct MCV MCH MCHC RDW Plt Count Lymph % (Auto) Benzie % (Auto) Lymph # Benzie # Baso # Seg Neutrophils % Seg Neuts % (Manual) Lymphocytes % (Manual) Monocytes % (Manual) Eosinophils % (Manual) Basophils % (Manual) Nucleated RBC % Seg Neutrophils # Seg Neutrophils # Man Lymphocytes # (Manual) Monocytes # (Manual) Eosinophils # (Manual) Basophils # (Manual) PT 19.0 H INR 1.51 H Fibrinogen dRVVT Confirm Interp Factor V Activity POC ABG pH POC ABG pCO2 POC ABG pO2 ABG pO2 ABG HCO3 ABG Base Excess ABG Hemoglobin Oxyhemoglobin Sodium Potassium Chloride Carbon Dioxide BUN Creatinine Glucose POC Glucose 151 H Lactic Acid Calcium Ionized Calcium Phosphorus Magnesium Direct Bilirubin AST ALT Alkaline Phosphatase Lactate Dehydrogenase Troponin T C-Reactive Protein Total Protein Albumin Prealbumin Triglycerides Cholesterol LDL Cholesterol Direct HDL Cholesterol 25-OH Vitamin D Total PTH Intact Urine pH Urine WBC (Auto) Urine Creatinine Urine Total Protein Fluid Total Protein Vancomycin Trough Rheumatoid Factor Complement C4 Miscellaneous Test Crossmatch See Detail 10/09/16 10/09/16 10/09/16 11:46 16:20 16:43 WBC RBC Hgb 7.2 L Hct 22.2 L MCV MCH MCHC RDW Plt Count Lymph % (Auto) Benzie % (Auto) Lymph # Benzie # Baso # Seg Neutrophils % Seg Neuts % (Manual) Lymphocytes % (Manual) Monocytes % (Manual) Eosinophils % (Manual) Basophils % (Manual) Nucleated RBC % Seg Neutrophils # Seg Neutrophils # Man Lymphocytes # (Manual) Monocytes # (Manual) Eosinophils # (Manual) Basophils # (Manual) PT INR Fibrinogen dRVVT Confirm Interp Factor V Activity POC ABG pH POC ABG pCO2 POC ABG pO2 ABG pO2 ABG HCO3 ABG Base Excess ABG Hemoglobin Oxyhemoglobin Sodium Potassium Chloride Carbon Dioxide BUN Creatinine Glucose POC Glucose 133 H 141 H Lactic Acid Calcium Ionized Calcium Phosphorus Magnesium Direct Bilirubin AST ALT Alkaline Phosphatase Lactate Dehydrogenase Troponin T C-Reactive Protein Total Protein Albumin Prealbumin Triglycerides Cholesterol LDL Cholesterol Direct HDL Cholesterol 25-OH Vitamin D Total PTH Intact Urine pH Urine WBC (Auto) Urine Creatinine Urine Total Protein Fluid Total Protein Vancomycin Trough Rheumatoid Factor Complement C4 Miscellaneous Test Crossmatch 10/10/16 10/10/16 10/10/16 05:00 05:00 11:19 WBC 18.5 H RBC 2.19 L Hgb 6.4 L Hct 19.6 L* MCV MCH MCHC RDW 19.3 H Plt Count 93 L Lymph % (Auto) Benzie % (Auto) Lymph # Benzie # Baso # Seg Neutrophils % Seg Neuts % (Manual) Lymphocytes % (Manual) 10.0 L Monocytes % (Manual) Eosinophils % (Manual) Basophils % (Manual) Nucleated RBC % 4.0 H Seg Neutrophils # Seg Neutrophils # Man 11.3 H Lymphocytes # (Manual) Monocytes # (Manual) Eosinophils # (Manual) Basophils # (Manual) PT INR Fibrinogen dRVVT Confirm Interp Factor V Activity POC ABG pH POC ABG pCO2 POC ABG pO2 ABG pO2 ABG HCO3 ABG Base Excess ABG Hemoglobin Oxyhemoglobin Sodium Potassium 5.7 H D Chloride Carbon Dioxide 16 L BUN 94 H Creatinine 3.1 H Glucose 131 H POC Glucose 153 H Lactic Acid Calcium 8.2 L Ionized Calcium Phosphorus 5.10 H Magnesium 2.40 H Direct Bilirubin 0.3 H AST ALT < 5 L Alkaline Phosphatase 319 H Lactate Dehydrogenase Troponin T C-Reactive Protein Total Protein 5.1 L Albumin 1.0 L Prealbumin Triglycerides Cholesterol LDL Cholesterol Direct HDL Cholesterol 25-OH Vitamin D Total PTH Intact Urine pH Urine WBC (Auto) Urine Creatinine Urine Total Protein Fluid Total Protein Vancomycin Trough Rheumatoid Factor Complement C4 Miscellaneous Test Crossmatch 10/10/16 10/10/16 10/11/16 17:50 23:30 04:15 WBC RBC Hgb Hct MCV MCH MCHC RDW Plt Count Lymph % (Auto) Benzie % (Auto) Lymph # Benzie # Baso # Seg Neutrophils % Seg Neuts % (Manual) Lymphocytes % (Manual) Monocytes % (Manual) Eosinophils % (Manual) Basophils % (Manual) Nucleated RBC % Seg Neutrophils # Seg Neutrophils # Man Lymphocytes # (Manual) Monocytes # (Manual) Eosinophils # (Manual) Basophils # (Manual) PT INR Fibrinogen dRVVT Confirm Interp Factor V Activity POC ABG pH POC ABG pCO2 POC ABG pO2 ABG pO2 ABG HCO3 ABG Base Excess ABG Hemoglobin Oxyhemoglobin Sodium Potassium Chloride 96.4 L Carbon Dioxide 21 L BUN 57 H Creatinine 2.1 H Glucose 151 H POC Glucose 146 H 141 H Lactic Acid Calcium 8.3 L Ionized Calcium Phosphorus Magnesium Direct Bilirubin AST ALT Alkaline Phosphatase Lactate Dehydrogenase Troponin T C-Reactive Protein Total Protein Albumin Prealbumin Triglycerides Cholesterol LDL Cholesterol Direct HDL Cholesterol 25-OH Vitamin D Total PTH Intact Urine pH Urine WBC (Auto) Urine Creatinine Urine Total Protein Fluid Total Protein Vancomycin Trough Rheumatoid Factor Complement C4 Miscellaneous Test Crossmatch 10/11/16 10/11/16 10/11/16 04:15 04:15 05:30 WBC 28.3 H RBC 3.12 L Hgb 9.3 L Hct 28.7 L D MCV MCH MCHC RDW 17.7 H Plt Count 128 L Lymph % (Auto) Benzie % (Auto) Lymph # Benzie # Baso # Seg Neutrophils % Seg Neuts % (Manual) Lymphocytes % (Manual) Monocytes % (Manual) Eosinophils % (Manual) Basophils % (Manual) Nucleated RBC % Seg Neutrophils # Seg Neutrophils # Man Lymphocytes # (Manual) Monocytes # (Manual) Eosinophils # (Manual) Basophils # (Manual) PT INR Fibrinogen dRVVT Confirm Interp Factor V Activity POC ABG pH POC ABG pCO2 POC ABG pO2 ABG pO2 ABG HCO3 ABG Base Excess ABG Hemoglobin Oxyhemoglobin Sodium Potassium Chloride Carbon Dioxide BUN Creatinine Glucose POC Glucose 167 H Lactic Acid Calcium Ionized Calcium Phosphorus Magnesium Direct Bilirubin AST ALT Alkaline Phosphatase Lactate Dehydrogenase Troponin T C-Reactive Protein 15.80 H Total Protein Albumin Prealbumin Triglycerides Cholesterol LDL Cholesterol Direct HDL Cholesterol 25-OH Vitamin D Total PTH Intact Urine pH Urine WBC (Auto) Urine Creatinine Urine Total Protein Fluid Total Protein Vancomycin Trough Rheumatoid Factor Complement C4 Miscellaneous Test Crossmatch 10/11/16 10/11/16 10/11/16 11:40 15:49 23:57 WBC RBC Hgb Hct MCV MCH MCHC RDW Plt Count Lymph % (Auto) Benzie % (Auto) Lymph # Benzie # Baso # Seg Neutrophils % Seg Neuts % (Manual) Lymphocytes % (Manual) Monocytes % (Manual) Eosinophils % (Manual) Basophils % (Manual) Nucleated RBC % Seg Neutrophils # Seg Neutrophils # Man Lymphocytes # (Manual) Monocytes # (Manual) Eosinophils # (Manual) Basophils # (Manual) PT INR Fibrinogen dRVVT Confirm Interp Factor V Activity POC ABG pH POC ABG pCO2 POC ABG pO2 ABG pO2 ABG HCO3 ABG Base Excess ABG Hemoglobin Oxyhemoglobin Sodium Potassium Chloride Carbon Dioxide BUN Creatinine Glucose POC Glucose 139 H 168 H 161 H Lactic Acid Calcium Ionized Calcium Phosphorus Magnesium Direct Bilirubin AST ALT Alkaline Phosphatase Lactate Dehydrogenase Troponin T C-Reactive Protein Total Protein Albumin Prealbumin Triglycerides Cholesterol LDL Cholesterol Direct HDL Cholesterol 25-OH Vitamin D Total PTH Intact Urine pH Urine WBC (Auto) Urine Creatinine Urine Total Protein Fluid Total Protein Vancomycin Trough Rheumatoid Factor Complement C4 Miscellaneous Test Crossmatch 10/12/16 10/12/16 10/12/16 04:40 04:40 05:44 WBC 22.5 H RBC 2.88 L Hgb 8.8 L Hct 26.8 L MCV MCH MCHC RDW 17.8 H Plt Count Lymph % (Auto) Benzie % (Auto) Lymph # Benzie # Baso # Seg Neutrophils % Seg Neuts % (Manual) Lymphocytes % (Manual) Monocytes % (Manual) Eosinophils % (Manual) Basophils % (Manual) Nucleated RBC % Seg Neutrophils # Seg Neutrophils # Man Lymphocytes # (Manual) Monocytes # (Manual) Eosinophils # (Manual) Basophils # (Manual) PT INR Fibrinogen dRVVT Confirm Interp Factor V Activity POC ABG pH POC ABG pCO2 POC ABG pO2 ABG pO2 ABG HCO3 ABG Base Excess ABG Hemoglobin Oxyhemoglobin Sodium 134 L Potassium Chloride 93.0 L Carbon Dioxide BUN 74 H Creatinine 2.5 H Glucose 137 H POC Glucose 158 H Lactic Acid Calcium 8.2 L Ionized Calcium Phosphorus Magnesium Direct Bilirubin AST ALT Alkaline Phosphatase Lactate Dehydrogenase Troponin T C-Reactive Protein Total Protein Albumin Prealbumin Triglycerides Cholesterol LDL Cholesterol Direct HDL Cholesterol 25-OH Vitamin D Total PTH Intact Urine pH Urine WBC (Auto) Urine Creatinine Urine Total Protein Fluid Total Protein Vancomycin Trough Rheumatoid Factor Complement C4 Miscellaneous Test Crossmatch 10/12/16 10/12/16 10/12/16 12:27 18:18 23:46 WBC RBC Hgb Hct MCV MCH MCHC RDW Plt Count Lymph % (Auto) Benzie % (Auto) Lymph # Benzie # Baso # Seg Neutrophils % Seg Neuts % (Manual) Lymphocytes % (Manual) Monocytes % (Manual) Eosinophils % (Manual) Basophils % (Manual) Nucleated RBC % Seg Neutrophils # Seg Neutrophils # Man Lymphocytes # (Manual) Monocytes # (Manual) Eosinophils # (Manual) Basophils # (Manual) PT INR Fibrinogen dRVVT Confirm Interp Factor V Activity POC ABG pH POC ABG pCO2 POC ABG pO2 ABG pO2 ABG HCO3 ABG Base Excess ABG Hemoglobin Oxyhemoglobin Sodium Potassium Chloride Carbon Dioxide BUN Creatinine Glucose POC Glucose 153 H 140 H 150 H Lactic Acid Calcium Ionized Calcium Phosphorus Magnesium Direct Bilirubin AST ALT Alkaline Phosphatase Lactate Dehydrogenase Troponin T C-Reactive Protein Total Protein Albumin Prealbumin Triglycerides Cholesterol LDL Cholesterol Direct HDL Cholesterol 25-OH Vitamin D Total PTH Intact Urine pH Urine WBC (Auto) Urine Creatinine Urine Total Protein Fluid Total Protein Vancomycin Trough Rheumatoid Factor Complement C4 Miscellaneous Test Crossmatch 10/13/16 10/13/16 10/13/16 06:22 09:20 12:29 WBC RBC Hgb Hct MCV MCH MCHC RDW Plt Count Lymph % (Auto) Benzie % (Auto) Lymph # Benzie # Baso # Seg Neutrophils % Seg Neuts % (Manual) Lymphocytes % (Manual) Monocytes % (Manual) Eosinophils % (Manual) Basophils % (Manual) Nucleated RBC % Seg Neutrophils # Seg Neutrophils # Man Lymphocytes # (Manual) Monocytes # (Manual) Eosinophils # (Manual) Basophils # (Manual) PT INR Fibrinogen dRVVT Confirm Interp Factor V Activity POC ABG pH POC ABG pCO2 POC ABG pO2 ABG pO2 ABG HCO3 ABG Base Excess ABG Hemoglobin Oxyhemoglobin Sodium Potassium Chloride Carbon Dioxide BUN Creatinine Glucose POC Glucose 165 H 193 H Lactic Acid Calcium Ionized Calcium Phosphorus Magnesium Direct Bilirubin AST ALT Alkaline Phosphatase Lactate Dehydrogenase Troponin T C-Reactive Protein Total Protein Albumin Prealbumin Triglycerides Cholesterol LDL Cholesterol Direct HDL Cholesterol 25-OH Vitamin D Total PTH Intact Urine pH Urine WBC (Auto) Urine Creatinine Urine Total Protein Fluid Total Protein Vancomycin Trough Rheumatoid Factor Complement C4 Miscellaneous Test Flexitest 1 H Crossmatch 10/13/16 10/13/16 10/13/16 18:09 Unknown Unknown WBC 23.4 H RBC 2.83 L Hgb 8.7 L Hct 26.1 L MCV MCH MCHC RDW 18.1 H Plt Count Lymph % (Auto) Benzie % (Auto) Lymph # Benzie # Baso # Seg Neutrophils % Seg Neuts % (Manual) Lymphocytes % (Manual) Monocytes % (Manual) Eosinophils % (Manual) Basophils % (Manual) Nucleated RBC % Seg Neutrophils # Seg Neutrophils # Man Lymphocytes # (Manual) Monocytes # (Manual) Eosinophils # (Manual) Basophils # (Manual) PT INR Fibrinogen dRVVT Confirm Interp Factor V Activity POC ABG pH POC ABG pCO2 POC ABG pO2 ABG pO2 ABG HCO3 ABG Base Excess ABG Hemoglobin Oxyhemoglobin Sodium Potassium Chloride 95.8 L Carbon Dioxide BUN 82 H Creatinine 2.6 H Glucose 152 H POC Glucose 166 H Lactic Acid Calcium Ionized Calcium Phosphorus Magnesium Direct Bilirubin AST ALT Alkaline Phosphatase Lactate Dehydrogenase Troponin T C-Reactive Protein Total Protein Albumin Prealbumin Triglycerides Cholesterol LDL Cholesterol Direct HDL Cholesterol 25-OH Vitamin D Total PTH Intact Urine pH Urine WBC (Auto) Urine Creatinine Urine Total Protein Fluid Total Protein Vancomycin Trough Rheumatoid Factor Complement C4 Miscellaneous Test Crossmatch 10/14/16 10/14/16 10/14/16 05:38 06:35 08:10 WBC 20.7 H RBC 2.81 L Hgb 8.4 L Hct 27.2 L MCV MCH MCHC RDW 19.4 H Plt Count Lymph % (Auto) Benzie % (Auto) Lymph # Benzie # Baso # Seg Neutrophils % Seg Neuts % (Manual) Lymphocytes % (Manual) Monocytes % (Manual) Eosinophils % (Manual) Basophils % (Manual) Nucleated RBC % Seg Neutrophils # Seg Neutrophils # Man Lymphocytes # (Manual) Monocytes # (Manual) Eosinophils # (Manual) Basophils # (Manual) PT INR Fibrinogen dRVVT Confirm Interp Factor V Activity POC ABG pH POC ABG pCO2 POC ABG pO2 ABG pO2 ABG HCO3 ABG Base Excess ABG Hemoglobin Oxyhemoglobin Sodium Potassium Chloride Carbon Dioxide BUN 58 H Creatinine 1.9 H Glucose 169 H POC Glucose 195 H Lactic Acid Calcium Ionized Calcium Phosphorus Magnesium Direct Bilirubin AST ALT Alkaline Phosphatase Lactate Dehydrogenase Troponin T C-Reactive Protein Total Protein Albumin Prealbumin Triglycerides Cholesterol LDL Cholesterol Direct HDL Cholesterol 25-OH Vitamin D Total PTH Intact Urine pH Urine WBC (Auto) Urine Creatinine Urine Total Protein Fluid Total Protein Vancomycin Trough Rheumatoid Factor Complement C4 Miscellaneous Test Crossmatch 10/14/16 10/14/16 10/14/16 11:44 17:13 23:28 WBC RBC Hgb Hct MCV MCH MCHC RDW Plt Count Lymph % (Auto) Benzie % (Auto) Lymph # Benzie # Baso # Seg Neutrophils % Seg Neuts % (Manual) Lymphocytes % (Manual) Monocytes % (Manual) Eosinophils % (Manual) Basophils % (Manual) Nucleated RBC % Seg Neutrophils # Seg Neutrophils # Man Lymphocytes # (Manual) Monocytes # (Manual) Eosinophils # (Manual) Basophils # (Manual) PT INR Fibrinogen dRVVT Confirm Interp Factor V Activity POC ABG pH POC ABG pCO2 POC ABG pO2 ABG pO2 ABG HCO3 ABG Base Excess ABG Hemoglobin Oxyhemoglobin Sodium Potassium Chloride Carbon Dioxide BUN Creatinine Glucose POC Glucose 174 H 121 H 151 H Lactic Acid Calcium Ionized Calcium Phosphorus Magnesium Direct Bilirubin AST ALT Alkaline Phosphatase Lactate Dehydrogenase Troponin T C-Reactive Protein Total Protein Albumin Prealbumin Triglycerides Cholesterol LDL Cholesterol Direct HDL Cholesterol 25-OH Vitamin D Total PTH Intact Urine pH Urine WBC (Auto) Urine Creatinine Urine Total Protein Fluid Total Protein Vancomycin Trough Rheumatoid Factor Complement C4 Miscellaneous Test Crossmatch 10/15/16 10/15/16 10/15/16 05:06 12:26 17:48 WBC RBC Hgb Hct MCV MCH MCHC RDW Plt Count Lymph % (Auto) Benzie % (Auto) Lymph # Benzie # Baso # Seg Neutrophils % Seg Neuts % (Manual) Lymphocytes % (Manual) Monocytes % (Manual) Eosinophils % (Manual) Basophils % (Manual) Nucleated RBC % Seg Neutrophils # Seg Neutrophils # Man Lymphocytes # (Manual) Monocytes # (Manual) Eosinophils # (Manual) Basophils # (Manual) PT INR Fibrinogen dRVVT Confirm Interp Factor V Activity POC ABG pH POC ABG pCO2 POC ABG pO2 ABG pO2 ABG HCO3 ABG Base Excess ABG Hemoglobin Oxyhemoglobin Sodium Potassium Chloride Carbon Dioxide BUN Creatinine Glucose POC Glucose 151 H 149 H 153 H Lactic Acid Calcium Ionized Calcium Phosphorus Magnesium Direct Bilirubin AST ALT Alkaline Phosphatase Lactate Dehydrogenase Troponin T C-Reactive Protein Total Protein Albumin Prealbumin Triglycerides Cholesterol LDL Cholesterol Direct HDL Cholesterol 25-OH Vitamin D Total PTH Intact Urine pH Urine WBC (Auto) Urine Creatinine Urine Total Protein Fluid Total Protein Vancomycin Trough Rheumatoid Factor Complement C4 Miscellaneous Test Crossmatch 10/15/16 10/15/16 10/16/16 Unknown Unknown 00:02 WBC 23.4 H RBC 2.78 L Hgb 8.5 L Hct 25.7 L MCV MCH MCHC RDW 18.7 H Plt Count Lymph % (Auto) Benzie % (Auto) Lymph # Benzie # Baso # Seg Neutrophils % Seg Neuts % (Manual) Lymphocytes % (Manual) Monocytes % (Manual) Eosinophils % (Manual) Basophils % (Manual) Nucleated RBC % Seg Neutrophils # Seg Neutrophils # Man Lymphocytes # (Manual) Monocytes # (Manual) Eosinophils # (Manual) Basophils # (Manual) PT INR Fibrinogen dRVVT Confirm Interp Factor V Activity POC ABG pH POC ABG pCO2 POC ABG pO2 ABG pO2 ABG HCO3 ABG Base Excess ABG Hemoglobin Oxyhemoglobin Sodium Potassium Chloride Carbon Dioxide BUN 73 H Creatinine 2.3 H Glucose 120 H POC Glucose 137 H Lactic Acid Calcium Ionized Calcium Phosphorus Magnesium Direct Bilirubin AST ALT Alkaline Phosphatase Lactate Dehydrogenase Troponin T C-Reactive Protein Total Protein Albumin Prealbumin Triglycerides Cholesterol LDL Cholesterol Direct HDL Cholesterol 25-OH Vitamin D Total PTH Intact Urine pH Urine WBC (Auto) Urine Creatinine Urine Total Protein Fluid Total Protein Vancomycin Trough Rheumatoid Factor Complement C4 Miscellaneous Test Crossmatch 10/16/16 10/16/16 10/16/16 05:44 06:25 06:25 WBC 22.5 H RBC 2.76 L Hgb 8.3 L Hct 25.2 L MCV MCH MCHC RDW 18.3 H Plt Count Lymph % (Auto) Benzie % (Auto) Lymph # Benzie # Baso # Seg Neutrophils % Seg Neuts % (Manual) Lymphocytes % (Manual) Monocytes % (Manual) Eosinophils % (Manual) Basophils % (Manual) Nucleated RBC % Seg Neutrophils # Seg Neutrophils # Man Lymphocytes # (Manual) Monocytes # (Manual) Eosinophils # (Manual) Basophils # (Manual) PT INR Fibrinogen dRVVT Confirm Interp Factor V Activity POC ABG pH POC ABG pCO2 POC ABG pO2 ABG pO2 ABG HCO3 ABG Base Excess ABG Hemoglobin Oxyhemoglobin Sodium Potassium Chloride Carbon Dioxide BUN 92 H Creatinine 3.0 H Glucose 138 H POC Glucose 110 H Lactic Acid Calcium Ionized Calcium Phosphorus Magnesium Direct Bilirubin AST ALT Alkaline Phosphatase Lactate Dehydrogenase Troponin T C-Reactive Protein Total Protein Albumin Prealbumin Triglycerides Cholesterol LDL Cholesterol Direct HDL Cholesterol 25-OH Vitamin D Total PTH Intact Urine pH Urine WBC (Auto) Urine Creatinine Urine Total Protein Fluid Total Protein Vancomycin Trough Rheumatoid Factor Complement C4 Miscellaneous Test Crossmatch 10/16/16 10/16/16 10/16/16 11:27 11:48 17:36 WBC RBC Hgb Hct MCV MCH MCHC RDW Plt Count Lymph % (Auto) Benzie % (Auto) Lymph # Benzie # Baso # Seg Neutrophils % Seg Neuts % (Manual) Lymphocytes % (Manual) Monocytes % (Manual) Eosinophils % (Manual) Basophils % (Manual) Nucleated RBC % Seg Neutrophils # Seg Neutrophils # Man Lymphocytes # (Manual) Monocytes # (Manual) Eosinophils # (Manual) Basophils # (Manual) PT INR Fibrinogen dRVVT Confirm Interp Factor V Activity POC ABG pH 7.582 H POC ABG pCO2 27.4 L POC ABG pO2 110 H ABG pO2 ABG HCO3 ABG Base Excess ABG Hemoglobin Oxyhemoglobin Sodium Potassium Chloride Carbon Dioxide BUN Creatinine Glucose POC Glucose 121 H 133 H Lactic Acid Calcium Ionized Calcium Phosphorus Magnesium Direct Bilirubin AST ALT Alkaline Phosphatase Lactate Dehydrogenase Troponin T C-Reactive Protein Total Protein Albumin Prealbumin Triglycerides Cholesterol LDL Cholesterol Direct HDL Cholesterol 25-OH Vitamin D Total PTH Intact Urine pH Urine WBC (Auto) Urine Creatinine Urine Total Protein Fluid Total Protein Vancomycin Trough Rheumatoid Factor Complement C4 Miscellaneous Test Crossmatch 10/16/16 10/17/16 10/17/16 20:48 04:24 04:24 WBC 21.4 H RBC 2.72 L Hgb 8.0 L Hct 25.2 L MCV MCH MCHC RDW 18.0 H Plt Count Lymph % (Auto) Benzie % (Auto) Lymph # Benzie # Baso # Seg Neutrophils % Seg Neuts % (Manual) Lymphocytes % (Manual) Monocytes % (Manual) Eosinophils % (Manual) Basophils % (Manual) Nucleated RBC % Seg Neutrophils # Seg Neutrophils # Man Lymphocytes # (Manual) Monocytes # (Manual) Eosinophils # (Manual) Basophils # (Manual) PT INR Fibrinogen dRVVT Confirm Interp Factor V Activity POC ABG pH 7.561 H POC ABG pCO2 24.4 L POC ABG pO2 77 L ABG pO2 ABG HCO3 ABG Base Excess ABG Hemoglobin Oxyhemoglobin Sodium 148 H Potassium Chloride Carbon Dioxide BUN 104 H Creatinine 3.0 H Glucose 149 H POC Glucose Lactic Acid Calcium Ionized Calcium Phosphorus Magnesium Direct Bilirubin AST ALT Alkaline Phosphatase 138 H Lactate Dehydrogenase Troponin T C-Reactive Protein Total Protein 6.2 L Albumin 1.5 L Prealbumin Triglycerides Cholesterol LDL Cholesterol Direct HDL Cholesterol 25-OH Vitamin D Total PTH Intact Urine pH Urine WBC (Auto) Urine Creatinine Urine Total Protein Fluid Total Protein Vancomycin Trough Rheumatoid Factor Complement C4 Miscellaneous Test Crossmatch 10/17/16 10/17/16 10/17/16 06:02 12:17 17:14 WBC RBC Hgb Hct MCV MCH MCHC RDW Plt Count Lymph % (Auto) Benzie % (Auto) Lymph # Benzie # Baso # Seg Neutrophils % Seg Neuts % (Manual) Lymphocytes % (Manual) Monocytes % (Manual) Eosinophils % (Manual) Basophils % (Manual) Nucleated RBC % Seg Neutrophils # Seg Neutrophils # Man Lymphocytes # (Manual) Monocytes # (Manual) Eosinophils # (Manual) Basophils # (Manual) PT INR Fibrinogen dRVVT Confirm Interp Factor V Activity POC ABG pH POC ABG pCO2 POC ABG pO2 ABG pO2 ABG HCO3 ABG Base Excess ABG Hemoglobin Oxyhemoglobin Sodium Potassium Chloride Carbon Dioxide BUN Creatinine Glucose POC Glucose 170 H 167 H 126 H Lactic Acid Calcium Ionized Calcium Phosphorus Magnesium Direct Bilirubin AST ALT Alkaline Phosphatase Lactate Dehydrogenase Troponin T C-Reactive Protein Total Protein Albumin Prealbumin Triglycerides Cholesterol LDL Cholesterol Direct HDL Cholesterol 25-OH Vitamin D Total PTH Intact Urine pH Urine WBC (Auto) Urine Creatinine Urine Total Protein Fluid Total Protein Vancomycin Trough Rheumatoid Factor Complement C4 Miscellaneous Test Crossmatch 10/17/16 10/18/16 10/18/16 23:17 04:00 04:00 WBC 20.7 H RBC 2.47 L Hgb 7.4 L Hct 22.9 L MCV MCH MCHC RDW 17.5 H Plt Count Lymph % (Auto) Benzie % (Auto) Lymph # Benzie # Baso # Seg Neutrophils % Seg Neuts % (Manual) Lymphocytes % (Manual) Monocytes % (Manual) Eosinophils % (Manual) Basophils % (Manual) Nucleated RBC % Seg Neutrophils # Seg Neutrophils # Man Lymphocytes # (Manual) Monocytes # (Manual) Eosinophils # (Manual) Basophils # (Manual) PT INR Fibrinogen dRVVT Confirm Interp Factor V Activity POC ABG pH POC ABG pCO2 POC ABG pO2 ABG pO2 ABG HCO3 ABG Base Excess ABG Hemoglobin Oxyhemoglobin Sodium 149 H Potassium Chloride 107.9 H Carbon Dioxide 20 L BUN 117 H Creatinine 3.2 H Glucose 119 H POC Glucose 121 H Lactic Acid Calcium Ionized Calcium Phosphorus Magnesium Direct Bilirubin AST ALT Alkaline Phosphatase Lactate Dehydrogenase Troponin T C-Reactive Protein Total Protein Albumin Prealbumin Triglycerides Cholesterol LDL Cholesterol Direct HDL Cholesterol 25-OH Vitamin D Total PTH Intact Urine pH Urine WBC (Auto) Urine Creatinine Urine Total Protein Fluid Total Protein Vancomycin Trough Rheumatoid Factor Complement C4 Miscellaneous Test Crossmatch 10/18/16 10/18/16 10/18/16 05:23 10:46 17:30 WBC RBC Hgb Hct MCV MCH MCHC RDW Plt Count Lymph % (Auto) Benzie % (Auto) Lymph # Benzie # Baso # Seg Neutrophils % Seg Neuts % (Manual) Lymphocytes % (Manual) Monocytes % (Manual) Eosinophils % (Manual) Basophils % (Manual) Nucleated RBC % Seg Neutrophils # Seg Neutrophils # Man Lymphocytes # (Manual) Monocytes # (Manual) Eosinophils # (Manual) Basophils # (Manual) PT INR Fibrinogen dRVVT Confirm Interp Factor V Activity POC ABG pH POC ABG pCO2 POC ABG pO2 ABG pO2 ABG HCO3 ABG Base Excess ABG Hemoglobin Oxyhemoglobin Sodium Potassium Chloride Carbon Dioxide BUN Creatinine Glucose POC Glucose 119 H 155 H 124 H Lactic Acid Calcium Ionized Calcium Phosphorus Magnesium Direct Bilirubin AST ALT Alkaline Phosphatase Lactate Dehydrogenase Troponin T C-Reactive Protein Total Protein Albumin Prealbumin Triglycerides Cholesterol LDL Cholesterol Direct HDL Cholesterol 25-OH Vitamin D Total PTH Intact Urine pH Urine WBC (Auto) Urine Creatinine Urine Total Protein Fluid Total Protein Vancomycin Trough Rheumatoid Factor Complement C4 Miscellaneous Test Crossmatch 10/19/16 10/19/16 10/19/16 04:00 04:00 05:25 WBC 17.4 H RBC 2.54 L Hgb 7.7 L Hct 23.6 L MCV MCH MCHC RDW 17.3 H Plt Count Lymph % (Auto) Benzie % (Auto) Lymph # Benzie # Baso # Seg Neutrophils % Seg Neuts % (Manual) Lymphocytes % (Manual) Monocytes % (Manual) Eosinophils % (Manual) Basophils % (Manual) Nucleated RBC % Seg Neutrophils # Seg Neutrophils # Man Lymphocytes # (Manual) Monocytes # (Manual) Eosinophils # (Manual) Basophils # (Manual) PT INR Fibrinogen dRVVT Confirm Interp Factor V Activity POC ABG pH POC ABG pCO2 POC ABG pO2 ABG pO2 ABG HCO3 ABG Base Excess ABG Hemoglobin Oxyhemoglobin Sodium Potassium Chloride Carbon Dioxide BUN 72 H Creatinine 2.1 H Glucose 116 H POC Glucose 119 H Lactic Acid Calcium Ionized Calcium Phosphorus Magnesium Direct Bilirubin AST ALT Alkaline Phosphatase Lactate Dehydrogenase Troponin T C-Reactive Protein Total Protein Albumin Prealbumin Triglycerides Cholesterol LDL Cholesterol Direct HDL Cholesterol 25-OH Vitamin D Total PTH Intact Urine pH Urine WBC (Auto) Urine Creatinine Urine Total Protein Fluid Total Protein Vancomycin Trough Rheumatoid Factor Complement C4 Miscellaneous Test Crossmatch 10/19/16 10/19/16 10/20/16 11:46 23:59 06:00 WBC RBC Hgb Hct MCV MCH MCHC RDW Plt Count Lymph % (Auto) Benzie % (Auto) Lymph # Benzie # Baso # Seg Neutrophils % Seg Neuts % (Manual) Lymphocytes % (Manual) Monocytes % (Manual) Eosinophils % (Manual) Basophils % (Manual) Nucleated RBC % Seg Neutrophils # Seg Neutrophils # Man Lymphocytes # (Manual) Monocytes # (Manual) Eosinophils # (Manual) Basophils # (Manual) PT INR Fibrinogen dRVVT Confirm Interp Factor V Activity POC ABG pH POC ABG pCO2 POC ABG pO2 ABG pO2 ABG HCO3 ABG Base Excess ABG Hemoglobin Oxyhemoglobin Sodium Potassium Chloride Carbon Dioxide 17 L BUN 94 H Creatinine 2.7 H Glucose POC Glucose 116 H 117 H Lactic Acid Calcium Ionized Calcium Phosphorus Magnesium Direct Bilirubin AST ALT Alkaline Phosphatase Lactate Dehydrogenase Troponin T C-Reactive Protein Total Protein Albumin Prealbumin Triglycerides Cholesterol LDL Cholesterol Direct HDL Cholesterol 25-OH Vitamin D Total PTH Intact Urine pH Urine WBC (Auto) Urine Creatinine Urine Total Protein Fluid Total Protein Vancomycin Trough Rheumatoid Factor Complement C4 Miscellaneous Test Crossmatch 10/20/16 10/20/16 10/20/16 06:00 11:49 16:00 WBC 19.7 H RBC 2.51 L Hgb 7.7 L Hct 23.5 L MCV MCH MCHC RDW 17.5 H Plt Count Lymph % (Auto) Benzie % (Auto) Lymph # Benzie # Baso # Seg Neutrophils % Seg Neuts % (Manual) Lymphocytes % (Manual) Monocytes % (Manual) Eosinophils % (Manual) Basophils % (Manual) Nucleated RBC % Seg Neutrophils # Seg Neutrophils # Man Lymphocytes # (Manual) Monocytes # (Manual) Eosinophils # (Manual) Basophils # (Manual) PT INR Fibrinogen dRVVT Confirm Interp Factor V Activity POC ABG pH POC ABG pCO2 POC ABG pO2 ABG pO2 ABG HCO3 ABG Base Excess ABG Hemoglobin Oxyhemoglobin Sodium Potassium Chloride Carbon Dioxide BUN Creatinine Glucose POC Glucose 117 H Lactic Acid Calcium Ionized Calcium Phosphorus Magnesium Direct Bilirubin AST ALT Alkaline Phosphatase Lactate Dehydrogenase Troponin T C-Reactive Protein Total Protein Albumin Prealbumin Triglycerides Cholesterol LDL Cholesterol Direct HDL Cholesterol 25-OH Vitamin D Total PTH Intact Urine pH Urine WBC (Auto) Urine Creatinine Urine Total Protein Fluid Total Protein Vancomycin Trough Rheumatoid Factor Complement C4 Miscellaneous Test Flexitest 1 H Crossmatch 10/20/16 10/20/16 10/21/16 18:36 23:39 04:00 WBC RBC Hgb Hct MCV MCH MCHC RDW Plt Count Lymph % (Auto) Benzie % (Auto) Lymph # Benzie # Baso # Seg Neutrophils % Seg Neuts % (Manual) Lymphocytes % (Manual) Monocytes % (Manual) Eosinophils % (Manual) Basophils % (Manual) Nucleated RBC % Seg Neutrophils # Seg Neutrophils # Man Lymphocytes # (Manual) Monocytes # (Manual) Eosinophils # (Manual) Basophils # (Manual) PT INR Fibrinogen dRVVT Confirm Interp Factor V Activity POC ABG pH POC ABG pCO2 POC ABG pO2 ABG pO2 ABG HCO3 ABG Base Excess ABG Hemoglobin Oxyhemoglobin Sodium Potassium 5.4 H D Chloride Carbon Dioxide 15 L BUN 110 H Creatinine 3.0 H Glucose POC Glucose 127 H 114 H Lactic Acid Calcium Ionized Calcium Phosphorus Magnesium Direct Bilirubin AST ALT Alkaline Phosphatase Lactate Dehydrogenase Troponin T C-Reactive Protein Total Protein Albumin Prealbumin Triglycerides Cholesterol LDL Cholesterol Direct HDL Cholesterol 25-OH Vitamin D Total PTH Intact Urine pH Urine WBC (Auto) Urine Creatinine Urine Total Protein Fluid Total Protein Vancomycin Trough Rheumatoid Factor Complement C4 Miscellaneous Test Crossmatch 10/21/16 10/21/16 10/22/16 05:54 23:46 05:18 WBC RBC Hgb Hct MCV MCH MCHC RDW Plt Count Lymph % (Auto) Benzie % (Auto) Lymph # Benzie # Baso # Seg Neutrophils % Seg Neuts % (Manual) Lymphocytes % (Manual) Monocytes % (Manual) Eosinophils % (Manual) Basophils % (Manual) Nucleated RBC % Seg Neutrophils # Seg Neutrophils # Man Lymphocytes # (Manual) Monocytes # (Manual) Eosinophils # (Manual) Basophils # (Manual) PT INR Fibrinogen dRVVT Confirm Interp Factor V Activity POC ABG pH POC ABG pCO2 POC ABG pO2 ABG pO2 ABG HCO3 ABG Base Excess ABG Hemoglobin Oxyhemoglobin Sodium Potassium Chloride Carbon Dioxide BUN Creatinine Glucose POC Glucose 119 H 108 H 109 H Lactic Acid Calcium Ionized Calcium Phosphorus Magnesium Direct Bilirubin AST ALT Alkaline Phosphatase Lactate Dehydrogenase Troponin T C-Reactive Protein Total Protein Albumin Prealbumin Triglycerides Cholesterol LDL Cholesterol Direct HDL Cholesterol 25-OH Vitamin D Total PTH Intact Urine pH Urine WBC (Auto) Urine Creatinine Urine Total Protein Fluid Total Protein Vancomycin Trough Rheumatoid Factor Complement C4 Miscellaneous Test Crossmatch 10/22/16 10/22/16 10/22/16 06:40 06:40 06:40 WBC 14.0 H RBC 2.03 L Hgb 7.0 L Hct 20.5 L MCV 98 H MCH 34 H MCHC 35 H RDW 17.8 H Plt Count Lymph % (Auto) Benzie % (Auto) 9.9 H Lymph # Benzie # 1.4 H Baso # 0.2 H Seg Neutrophils % 72.0 H Seg Neuts % (Manual) Lymphocytes % (Manual) Monocytes % (Manual) Eosinophils % (Manual) Basophils % (Manual) Nucleated RBC % Seg Neutrophils # 10.0 H Seg Neutrophils # Man Lymphocytes # (Manual) Monocytes # (Manual) Eosinophils # (Manual) Basophils # (Manual) PT INR Fibrinogen dRVVT Confirm Interp Factor V Activity POC ABG pH POC ABG pCO2 POC ABG pO2 ABG pO2 ABG HCO3 ABG Base Excess ABG Hemoglobin Oxyhemoglobin Sodium 130 L D Potassium Chloride 92.4 L Carbon Dioxide 20 L BUN 50 H Creatinine 1.6 H Glucose 589 H* POC Glucose Lactic Acid Calcium 7.8 L D Ionized Calcium Phosphorus Magnesium 1.60 L Direct Bilirubin AST ALT Alkaline Phosphatase Lactate Dehydrogenase Troponin T C-Reactive Protein Total Protein Albumin Prealbumin Triglycerides Cholesterol LDL Cholesterol Direct HDL Cholesterol 25-OH Vitamin D Total PTH Intact Urine pH Urine WBC (Auto) Urine Creatinine Urine Total Protein Fluid Total Protein Vancomycin Trough Rheumatoid Factor Complement C4 Miscellaneous Test Crossmatch 10/22/16 10/22/16 10/22/16 11:39 16:44 23:36 WBC RBC Hgb Hct MCV MCH MCHC RDW Plt Count Lymph % (Auto) Benzie % (Auto) Lymph # Benzie # Baso # Seg Neutrophils % Seg Neuts % (Manual) Lymphocytes % (Manual) Monocytes % (Manual) Eosinophils % (Manual) Basophils % (Manual) Nucleated RBC % Seg Neutrophils # Seg Neutrophils # Man Lymphocytes # (Manual) Monocytes # (Manual) Eosinophils # (Manual) Basophils # (Manual) PT INR Fibrinogen dRVVT Confirm Interp Factor V Activity POC ABG pH POC ABG pCO2 POC ABG pO2 ABG pO2 ABG HCO3 ABG Base Excess ABG Hemoglobin Oxyhemoglobin Sodium Potassium Chloride Carbon Dioxide BUN Creatinine Glucose POC Glucose 142 H 163 H 123 H Lactic Acid Calcium Ionized Calcium Phosphorus Magnesium Direct Bilirubin AST ALT Alkaline Phosphatase Lactate Dehydrogenase Troponin T C-Reactive Protein Total Protein Albumin Prealbumin Triglycerides Cholesterol LDL Cholesterol Direct HDL Cholesterol 25-OH Vitamin D Total PTH Intact Urine pH Urine WBC (Auto) Urine Creatinine Urine Total Protein Fluid Total Protein Vancomycin Trough Rheumatoid Factor Complement C4 Miscellaneous Test Crossmatch 10/23/16 10/23/16 10/23/16 04:58 06:00 12:12 WBC RBC Hgb Hct MCV MCH MCHC RDW Plt Count Lymph % (Auto) Benzie % (Auto) Lymph # Benzie # Baso # Seg Neutrophils % Seg Neuts % (Manual) Lymphocytes % (Manual) Monocytes % (Manual) Eosinophils % (Manual) Basophils % (Manual) Nucleated RBC % Seg Neutrophils # Seg Neutrophils # Man Lymphocytes # (Manual) Monocytes # (Manual) Eosinophils # (Manual) Basophils # (Manual) PT INR Fibrinogen dRVVT Confirm Interp Factor V Activity POC ABG pH POC ABG pCO2 POC ABG pO2 ABG pO2 ABG HCO3 ABG Base Excess ABG Hemoglobin Oxyhemoglobin Sodium 133 L Potassium 3.5 L Chloride 96.1 L Carbon Dioxide 18 L BUN 76 H Creatinine 2.1 H Glucose POC Glucose 133 H 138 H Lactic Acid Calcium 8.3 L Ionized Calcium Phosphorus Magnesium Direct Bilirubin AST ALT Alkaline Phosphatase Lactate Dehydrogenase Troponin T C-Reactive Protein Total Protein Albumin Prealbumin Triglycerides Cholesterol LDL Cholesterol Direct HDL Cholesterol 25-OH Vitamin D Total PTH Intact Urine pH Urine WBC (Auto) Urine Creatinine Urine Total Protein Fluid Total Protein Vancomycin Trough Rheumatoid Factor Complement C4 Miscellaneous Test Crossmatch 10/23/16 10/23/16 10/24/16 16:53 23:37 04:00 WBC RBC Hgb Hct MCV MCH MCHC RDW Plt Count Lymph % (Auto) Benzie % (Auto) Lymph # Benzie # Baso # Seg Neutrophils % Seg Neuts % (Manual) Lymphocytes % (Manual) Monocytes % (Manual) Eosinophils % (Manual) Basophils % (Manual) Nucleated RBC % Seg Neutrophils # Seg Neutrophils # Man Lymphocytes # (Manual) Monocytes # (Manual) Eosinophils # (Manual) Basophils # (Manual) PT INR Fibrinogen dRVVT Confirm Interp Factor V Activity POC ABG pH POC ABG pCO2 POC ABG pO2 ABG pO2 ABG HCO3 ABG Base Excess ABG Hemoglobin Oxyhemoglobin Sodium 131 L Potassium Chloride 94.5 L Carbon Dioxide 19 L BUN 97 H Creatinine 2.6 H Glucose 110 H POC Glucose 125 H 123 H Lactic Acid Calcium 8.3 L Ionized Calcium Phosphorus Magnesium Direct Bilirubin AST ALT Alkaline Phosphatase Lactate Dehydrogenase Troponin T C-Reactive Protein Total Protein Albumin Prealbumin Triglycerides Cholesterol LDL Cholesterol Direct HDL Cholesterol 25-OH Vitamin D Total PTH Intact Urine pH Urine WBC (Auto) Urine Creatinine Urine Total Protein Fluid Total Protein Vancomycin Trough Rheumatoid Factor Complement C4 Miscellaneous Test Crossmatch 10/24/16 10/24/16 10/24/16 07:49 11:39 17:52 WBC RBC Hgb 6.0 L Hct 19.7 L* MCV MCH MCHC RDW Plt Count Lymph % (Auto) Benzie % (Auto) Lymph # Benzie # Baso # Seg Neutrophils % Seg Neuts % (Manual) Lymphocytes % (Manual) Monocytes % (Manual) Eosinophils % (Manual) Basophils % (Manual) Nucleated RBC % Seg Neutrophils # Seg Neutrophils # Man Lymphocytes # (Manual) Monocytes # (Manual) Eosinophils # (Manual) Basophils # (Manual) PT INR Fibrinogen dRVVT Confirm Interp Factor V Activity POC ABG pH POC ABG pCO2 POC ABG pO2 ABG pO2 ABG HCO3 ABG Base Excess ABG Hemoglobin Oxyhemoglobin Sodium Potassium Chloride Carbon Dioxide BUN Creatinine Glucose POC Glucose 106 H 158 H Lactic Acid Calcium Ionized Calcium Phosphorus Magnesium Direct Bilirubin AST ALT Alkaline Phosphatase Lactate Dehydrogenase Troponin T C-Reactive Protein Total Protein Albumin Prealbumin Triglycerides Cholesterol LDL Cholesterol Direct HDL Cholesterol 25-OH Vitamin D Total PTH Intact Urine pH Urine WBC (Auto) Urine Creatinine Urine Total Protein Fluid Total Protein Vancomycin Trough Rheumatoid Factor Complement C4 Miscellaneous Test Crossmatch 10/24/16 10/24/16 10/24/16 20:00 22:27 Unknown WBC RBC Hgb 9.4 L D Hct 27.5 L D MCV MCH MCHC RDW Plt Count Lymph % (Auto) Benzie % (Auto) Lymph # Benzie # Baso # Seg Neutrophils % Seg Neuts % (Manual) Lymphocytes % (Manual) Monocytes % (Manual) Eosinophils % (Manual) Basophils % (Manual) Nucleated RBC % Seg Neutrophils # Seg Neutrophils # Man Lymphocytes # (Manual) Monocytes # (Manual) Eosinophils # (Manual) Basophils # (Manual) PT INR Fibrinogen dRVVT Confirm Interp Factor V Activity POC ABG pH POC ABG pCO2 POC ABG pO2 ABG pO2 ABG HCO3 ABG Base Excess ABG Hemoglobin Oxyhemoglobin Sodium Potassium Chloride Carbon Dioxide BUN Creatinine Glucose POC Glucose 125 H Lactic Acid Calcium Ionized Calcium Phosphorus Magnesium Direct Bilirubin AST ALT Alkaline Phosphatase Lactate Dehydrogenase Troponin T C-Reactive Protein Total Protein Albumin Prealbumin Triglycerides Cholesterol LDL Cholesterol Direct HDL Cholesterol 25-OH Vitamin D Total PTH Intact Urine pH Urine WBC (Auto) Urine Creatinine Urine Total Protein Fluid Total Protein Vancomycin Trough Rheumatoid Factor Complement C4 Miscellaneous Test Crossmatch See Detail 10/25/16 10/25/16 10/25/16 04:00 04:00 04:00 WBC 14.2 H RBC 2.98 L Hgb 9.0 L Hct 26.2 L MCV MCH MCHC RDW 16.6 H Plt Count Lymph % (Auto) Benzie % (Auto) 10.7 H Lymph # Benzie # 1.5 H Baso # Seg Neutrophils % 73.6 H Seg Neuts % (Manual) Lymphocytes % (Manual) Monocytes % (Manual) Eosinophils % (Manual) Basophils % (Manual) Nucleated RBC % Seg Neutrophils # 10.5 H Seg Neutrophils # Man Lymphocytes # (Manual) Monocytes # (Manual) Eosinophils # (Manual) Basophils # (Manual) PT INR Fibrinogen dRVVT Confirm Interp Factor V Activity POC ABG pH POC ABG pCO2 POC ABG pO2 ABG pO2 ABG HCO3 ABG Base Excess ABG Hemoglobin Oxyhemoglobin Sodium 132 L Potassium Chloride 94.7 L Carbon Dioxide BUN 51 H Creatinine 1.6 H Glucose 130 H POC Glucose Lactic Acid Calcium 8.3 L Ionized Calcium Phosphorus 1.60 L D Magnesium Direct Bilirubin AST ALT Alkaline Phosphatase Lactate Dehydrogenase Troponin T C-Reactive Protein Total Protein Albumin Prealbumin Triglycerides Cholesterol LDL Cholesterol Direct HDL Cholesterol 25-OH Vitamin D Total PTH Intact Urine pH Urine WBC (Auto) Urine Creatinine Urine Total Protein Fluid Total Protein Vancomycin Trough Rheumatoid Factor Complement C4 Miscellaneous Test Crossmatch 10/25/16 10/25/16 10/25/16 04:32 11:48 17:22 WBC RBC Hgb Hct MCV MCH MCHC RDW Plt Count Lymph % (Auto) Benzie % (Auto) Lymph # Benzie # Baso # Seg Neutrophils % Seg Neuts % (Manual) Lymphocytes % (Manual) Monocytes % (Manual) Eosinophils % (Manual) Basophils % (Manual) Nucleated RBC % Seg Neutrophils # Seg Neutrophils # Man Lymphocytes # (Manual) Monocytes # (Manual) Eosinophils # (Manual) Basophils # (Manual) PT INR Fibrinogen dRVVT Confirm Interp Factor V Activity POC ABG pH POC ABG pCO2 POC ABG pO2 ABG pO2 ABG HCO3 ABG Base Excess ABG Hemoglobin Oxyhemoglobin Sodium Potassium Chloride Carbon Dioxide BUN Creatinine Glucose POC Glucose 124 H 171 H 120 H Lactic Acid Calcium Ionized Calcium Phosphorus Magnesium Direct Bilirubin AST ALT Alkaline Phosphatase Lactate Dehydrogenase Troponin T C-Reactive Protein Total Protein Albumin Prealbumin Triglycerides Cholesterol LDL Cholesterol Direct HDL Cholesterol 25-OH Vitamin D Total PTH Intact Urine pH Urine WBC (Auto) Urine Creatinine Urine Total Protein Fluid Total Protein Vancomycin Trough Rheumatoid Factor Complement C4 Miscellaneous Test Crossmatch 10/26/16 10/26/16 10/26/16 04:54 07:06 07:06 WBC 16.9 H RBC 3.06 L Hgb 9.1 L Hct 26.9 L MCV MCH MCHC RDW 16.9 H Plt Count Lymph % (Auto) Benzie % (Auto) Lymph # Benzie # Baso # Seg Neutrophils % Seg Neuts % (Manual) 71.0 H Lymphocytes % (Manual) 5.0 L Monocytes % (Manual) 12.0 H Eosinophils % (Manual) Basophils % (Manual) Nucleated RBC % Seg Neutrophils # Seg Neutrophils # Man 12.0 H Lymphocytes # (Manual) 0.8 L Monocytes # (Manual) 2.0 H Eosinophils # (Manual) Basophils # (Manual) PT INR Fibrinogen dRVVT Confirm Interp Factor V Activity POC ABG pH POC ABG pCO2 POC ABG pO2 ABG pO2 ABG HCO3 ABG Base Excess ABG Hemoglobin Oxyhemoglobin Sodium 135 L Potassium Chloride 97.1 L Carbon Dioxide BUN 73 H Creatinine 2.2 H Glucose 117 H POC Glucose 123 H Lactic Acid Calcium Ionized Calcium Phosphorus 1.70 L Magnesium Direct Bilirubin AST ALT Alkaline Phosphatase Lactate Dehydrogenase Troponin T C-Reactive Protein Total Protein Albumin Prealbumin Triglycerides Cholesterol LDL Cholesterol Direct HDL Cholesterol 25-OH Vitamin D Total PTH Intact Urine pH Urine WBC (Auto) Urine Creatinine Urine Total Protein Fluid Total Protein Vancomycin Trough Rheumatoid Factor Complement C4 Miscellaneous Test Crossmatch 10/26/16 10/26/16 10/26/16 12:12 17:29 23:42 WBC RBC Hgb Hct MCV MCH MCHC RDW Plt Count Lymph % (Auto) Benzie % (Auto) Lymph # Benzie # Baso # Seg Neutrophils % Seg Neuts % (Manual) Lymphocytes % (Manual) Monocytes % (Manual) Eosinophils % (Manual) Basophils % (Manual) Nucleated RBC % Seg Neutrophils # Seg Neutrophils # Man Lymphocytes # (Manual) Monocytes # (Manual) Eosinophils # (Manual) Basophils # (Manual) PT INR Fibrinogen dRVVT Confirm Interp Factor V Activity POC ABG pH POC ABG pCO2 POC ABG pO2 ABG pO2 ABG HCO3 ABG Base Excess ABG Hemoglobin Oxyhemoglobin Sodium Potassium Chloride Carbon Dioxide BUN Creatinine Glucose POC Glucose 126 H 161 H 118 H Lactic Acid Calcium Ionized Calcium Phosphorus Magnesium Direct Bilirubin AST ALT Alkaline Phosphatase Lactate Dehydrogenase Troponin T C-Reactive Protein Total Protein Albumin Prealbumin Triglycerides Cholesterol LDL Cholesterol Direct HDL Cholesterol 25-OH Vitamin D Total PTH Intact Urine pH Urine WBC (Auto) Urine Creatinine Urine Total Protein Fluid Total Protein Vancomycin Trough Rheumatoid Factor Complement C4 Miscellaneous Test Crossmatch 10/27/16 10/27/16 10/27/16 05:03 06:30 06:30 WBC 13.9 H RBC 3.09 L Hgb 9.2 L Hct 27.5 L MCV MCH MCHC RDW 17.0 H Plt Count Lymph % (Auto) Benzie % (Auto) Lymph # Benzie # Baso # Seg Neutrophils % Seg Neuts % (Manual) 78.0 H Lymphocytes % (Manual) Monocytes % (Manual) Eosinophils % (Manual) Basophils % (Manual) Nucleated RBC % 2.0 H Seg Neutrophils # Seg Neutrophils # Man 10.8 H Lymphocytes # (Manual) Monocytes # (Manual) 1.0 H Eosinophils # (Manual) Basophils # (Manual) PT INR Fibrinogen dRVVT Confirm Interp Factor V Activity POC ABG pH POC ABG pCO2 POC ABG pO2 ABG pO2 ABG HCO3 ABG Base Excess ABG Hemoglobin Oxyhemoglobin Sodium Potassium Chloride Carbon Dioxide BUN 40 H Creatinine 1.5 H Glucose 135 H POC Glucose 107 H Lactic Acid Calcium 8.3 L Ionized Calcium Phosphorus 1.30 L D Magnesium Direct Bilirubin AST ALT Alkaline Phosphatase Lactate Dehydrogenase Troponin T C-Reactive Protein Total Protein Albumin Prealbumin Triglycerides Cholesterol LDL Cholesterol Direct HDL Cholesterol 25-OH Vitamin D Total PTH Intact Urine pH Urine WBC (Auto) Urine Creatinine Urine Total Protein Fluid Total Protein Vancomycin Trough Rheumatoid Factor Complement C4 Miscellaneous Test Crossmatch 10/27/16 10/27/16 10/27/16 13:27 18:07 23:40 WBC RBC Hgb Hct MCV MCH MCHC RDW Plt Count Lymph % (Auto) Benzie % (Auto) Lymph # Benzie # Baso # Seg Neutrophils % Seg Neuts % (Manual) Lymphocytes % (Manual) Monocytes % (Manual) Eosinophils % (Manual) Basophils % (Manual) Nucleated RBC % Seg Neutrophils # Seg Neutrophils # Man Lymphocytes # (Manual) Monocytes # (Manual) Eosinophils # (Manual) Basophils # (Manual) PT INR Fibrinogen dRVVT Confirm Interp Factor V Activity POC ABG pH POC ABG pCO2 POC ABG pO2 ABG pO2 ABG HCO3 ABG Base Excess ABG Hemoglobin Oxyhemoglobin Sodium Potassium Chloride Carbon Dioxide BUN Creatinine Glucose POC Glucose 117 H 121 H 118 H Lactic Acid Calcium Ionized Calcium Phosphorus Magnesium Direct Bilirubin AST ALT Alkaline Phosphatase Lactate Dehydrogenase Troponin T C-Reactive Protein Total Protein Albumin Prealbumin Triglycerides Cholesterol LDL Cholesterol Direct HDL Cholesterol 25-OH Vitamin D Total PTH Intact Urine pH Urine WBC (Auto) Urine Creatinine Urine Total Protein Fluid Total Protein Vancomycin Trough Rheumatoid Factor Complement C4 Miscellaneous Test Crossmatch 10/28/16 10/28/16 10/28/16 05:48 06:45 06:45 WBC 14.7 H RBC 3.05 L Hgb 9.0 L Hct 26.9 L MCV MCH MCHC RDW 16.8 H Plt Count Lymph % (Auto) 8.2 L Benzie % (Auto) 8.4 H Lymph # Benzie # 1.2 H Baso # Seg Neutrophils % 81.9 H Seg Neuts % (Manual) Lymphocytes % (Manual) Monocytes % (Manual) Eosinophils % (Manual) Basophils % (Manual) Nucleated RBC % Seg Neutrophils # 12.1 H Seg Neutrophils # Man Lymphocytes # (Manual) Monocytes # (Manual) Eosinophils # (Manual) Basophils # (Manual) PT INR Fibrinogen dRVVT Confirm Interp Factor V Activity POC ABG pH POC ABG pCO2 POC ABG pO2 ABG pO2 ABG HCO3 ABG Base Excess ABG Hemoglobin Oxyhemoglobin Sodium Potassium Chloride Carbon Dioxide BUN 60 H Creatinine 1.9 H Glucose 120 H POC Glucose 114 H Lactic Acid Calcium Ionized Calcium Phosphorus Magnesium Direct Bilirubin AST ALT Alkaline Phosphatase Lactate Dehydrogenase Troponin T C-Reactive Protein Total Protein Albumin Prealbumin Triglycerides Cholesterol LDL Cholesterol Direct HDL Cholesterol 25-OH Vitamin D Total PTH Intact Urine pH Urine WBC (Auto) Urine Creatinine Urine Total Protein Fluid Total Protein Vancomycin Trough Rheumatoid Factor Complement C4 Miscellaneous Test Crossmatch 10/28/16 10/28/16 10/29/16 17:08 23:50 05:10 WBC RBC Hgb Hct MCV MCH MCHC RDW Plt Count Lymph % (Auto) Benzie % (Auto) Lymph # Benzie # Baso # Seg Neutrophils % Seg Neuts % (Manual) Lymphocytes % (Manual) Monocytes % (Manual) Eosinophils % (Manual) Basophils % (Manual) Nucleated RBC % Seg Neutrophils # Seg Neutrophils # Man Lymphocytes # (Manual) Monocytes # (Manual) Eosinophils # (Manual) Basophils # (Manual) PT INR Fibrinogen dRVVT Confirm Interp Factor V Activity POC ABG pH POC ABG pCO2 POC ABG pO2 ABG pO2 ABG HCO3 ABG Base Excess ABG Hemoglobin Oxyhemoglobin Sodium Potassium Chloride Carbon Dioxide BUN Creatinine Glucose POC Glucose 109 H 110 H 124 H Lactic Acid Calcium Ionized Calcium Phosphorus Magnesium Direct Bilirubin AST ALT Alkaline Phosphatase Lactate Dehydrogenase Troponin T C-Reactive Protein Total Protein Albumin Prealbumin Triglycerides Cholesterol LDL Cholesterol Direct HDL Cholesterol 25-OH Vitamin D Total PTH Intact Urine pH Urine WBC (Auto) Urine Creatinine Urine Total Protein Fluid Total Protein Vancomycin Trough Rheumatoid Factor Complement C4 Miscellaneous Test Crossmatch 10/29/16 10/29/16 10/29/16 07:45 07:45 12:19 WBC 14.7 H RBC 3.15 L Hgb 9.3 L Hct 28.9 L MCV MCH MCHC RDW 17.0 H Plt Count Lymph % (Auto) 11.9 L Benzie % (Auto) 8.6 H Lymph # Benzie # 1.3 H Baso # Seg Neutrophils % 78.1 H Seg Neuts % (Manual) Lymphocytes % (Manual) Monocytes % (Manual) Eosinophils % (Manual) Basophils % (Manual) Nucleated RBC % Seg Neutrophils # 11.4 H Seg Neutrophils # Man Lymphocytes # (Manual) Monocytes # (Manual) Eosinophils # (Manual) Basophils # (Manual) PT INR Fibrinogen dRVVT Confirm Interp Factor V Activity POC ABG pH POC ABG pCO2 POC ABG pO2 ABG pO2 ABG HCO3 ABG Base Excess ABG Hemoglobin Oxyhemoglobin Sodium Potassium 5.1 H Chloride Carbon Dioxide 19 L BUN 78 H Creatinine 2.2 H Glucose 116 H POC Glucose 118 H Lactic Acid Calcium Ionized Calcium Phosphorus Magnesium Direct Bilirubin AST ALT Alkaline Phosphatase Lactate Dehydrogenase Troponin T C-Reactive Protein Total Protein Albumin Prealbumin Triglycerides Cholesterol LDL Cholesterol Direct HDL Cholesterol 25-OH Vitamin D Total PTH Intact Urine pH Urine WBC (Auto) Urine Creatinine Urine Total Protein Fluid Total Protein Vancomycin Trough Rheumatoid Factor Complement C4 Miscellaneous Test Crossmatch 10/29/16 10/30/16 10/30/16 17:49 01:52 03:28 WBC RBC Hgb Hct MCV MCH MCHC RDW Plt Count Lymph % (Auto) Benzie % (Auto) Lymph # Benzie # Baso # Seg Neutrophils % Seg Neuts % (Manual) Lymphocytes % (Manual) Monocytes % (Manual) Eosinophils % (Manual) Basophils % (Manual) Nucleated RBC % Seg Neutrophils # Seg Neutrophils # Man Lymphocytes # (Manual) Monocytes # (Manual) Eosinophils # (Manual) Basophils # (Manual) PT INR Fibrinogen dRVVT Confirm Interp Factor V Activity POC ABG pH POC ABG pCO2 POC ABG pO2 ABG pO2 ABG HCO3 ABG Base Excess ABG Hemoglobin Oxyhemoglobin Sodium Potassium 5.4 H Chloride 97.5 L Carbon Dioxide 19 L BUN 90 H Creatinine 2.5 H Glucose POC Glucose 120 H 129 H Lactic Acid Calcium Ionized Calcium Phosphorus 5.20 H Magnesium Direct Bilirubin AST ALT Alkaline Phosphatase Lactate Dehydrogenase Troponin T C-Reactive Protein Total Protein Albumin Prealbumin Triglycerides Cholesterol LDL Cholesterol Direct HDL Cholesterol 25-OH Vitamin D Total PTH Intact Urine pH Urine WBC (Auto) Urine Creatinine Urine Total Protein Fluid Total Protein Vancomycin Trough Rheumatoid Factor Complement C4 Miscellaneous Test Crossmatch 10/30/16 10/30/16 10/30/16 03:28 08:19 08:19 WBC 11.6 H 15.9 H RBC 2.75 L 2.82 L Hgb 7.9 L 8.3 L Hct 24.2 L 25.2 L MCV MCH MCHC RDW 16.7 H 17.2 H Plt Count Lymph % (Auto) Benzie % (Auto) 9.8 H Lymph # Benzie # 1.1 H Baso # Seg Neutrophils % 74.2 H Seg Neuts % (Manual) Lymphocytes % (Manual) Monocytes % (Manual) Eosinophils % (Manual) Basophils % (Manual) Nucleated RBC % Seg Neutrophils # 8.6 H Seg Neutrophils # Man Lymphocytes # (Manual) Monocytes # (Manual) Eosinophils # (Manual) Basophils # (Manual) PT INR Fibrinogen dRVVT Confirm Interp Factor V Activity POC ABG pH POC ABG pCO2 POC ABG pO2 ABG pO2 ABG HCO3 ABG Base Excess ABG Hemoglobin Oxyhemoglobin Sodium Potassium 5.3 H Chloride 97.4 L Carbon Dioxide 19 L BUN 93 H Creatinine 2.6 H Glucose POC Glucose Lactic Acid Calcium Ionized Calcium Phosphorus Magnesium Direct Bilirubin AST ALT Alkaline Phosphatase Lactate Dehydrogenase Troponin T C-Reactive Protein Total Protein Albumin Prealbumin Triglycerides Cholesterol LDL Cholesterol Direct HDL Cholesterol 25-OH Vitamin D Total PTH Intact Urine pH Urine WBC (Auto) Urine Creatinine Urine Total Protein Fluid Total Protein Vancomycin Trough Rheumatoid Factor Complement C4 Miscellaneous Test Crossmatch 10/30/16 10/30/16 10/31/16 17:11 23:56 00:40 WBC RBC Hgb Hct MCV MCH MCHC RDW Plt Count Lymph % (Auto) Benzie % (Auto) Lymph # Benzie # Baso # Seg Neutrophils % Seg Neuts % (Manual) Lymphocytes % (Manual) Monocytes % (Manual) Eosinophils % (Manual) Basophils % (Manual) Nucleated RBC % Seg Neutrophils # Seg Neutrophils # Man Lymphocytes # (Manual) Monocytes # (Manual) Eosinophils # (Manual) Basophils # (Manual) PT INR Fibrinogen dRVVT Confirm Interp Factor V Activity POC ABG pH POC ABG pCO2 POC ABG pO2 ABG pO2 ABG HCO3 ABG Base Excess ABG Hemoglobin Oxyhemoglobin Sodium Potassium Chloride Carbon Dioxide BUN Creatinine Glucose POC Glucose 106 H 117 H 120 H Lactic Acid Calcium Ionized Calcium Phosphorus Magnesium Direct Bilirubin AST ALT Alkaline Phosphatase Lactate Dehydrogenase Troponin T C-Reactive Protein Total Protein Albumin Prealbumin Triglycerides Cholesterol LDL Cholesterol Direct HDL Cholesterol 25-OH Vitamin D Total PTH Intact Urine pH Urine WBC (Auto) Urine Creatinine Urine Total Protein Fluid Total Protein Vancomycin Trough Rheumatoid Factor Complement C4 Miscellaneous Test Crossmatch 10/31/16 10/31/16 10/31/16 05:43 07:15 07:15 WBC 12.1 H RBC 2.63 L Hgb 7.7 L Hct 23.3 L MCV MCH MCHC RDW 16.7 H Plt Count Lymph % (Auto) 11.7 L Benzie % (Auto) 7.7 H Lymph # Benzie # 0.9 H Baso # Seg Neutrophils % 78.0 H Seg Neuts % (Manual) Lymphocytes % (Manual) Monocytes % (Manual) Eosinophils % (Manual) Basophils % (Manual) Nucleated RBC % Seg Neutrophils # 9.4 H Seg Neutrophils # Man Lymphocytes # (Manual) Monocytes # (Manual) Eosinophils # (Manual) Basophils # (Manual) PT INR Fibrinogen dRVVT Confirm Interp Factor V Activity POC ABG pH POC ABG pCO2 POC ABG pO2 ABG pO2 ABG HCO3 ABG Base Excess ABG Hemoglobin Oxyhemoglobin Sodium Potassium Chloride 96.4 L Carbon Dioxide 21 L BUN 99 H Creatinine 2.6 H Glucose 144 H POC Glucose 125 H Lactic Acid Calcium Ionized Calcium Phosphorus 4.80 H Magnesium Direct Bilirubin AST ALT Alkaline Phosphatase Lactate Dehydrogenase Troponin T C-Reactive Protein Total Protein Albumin Prealbumin Triglycerides Cholesterol LDL Cholesterol Direct HDL Cholesterol 25-OH Vitamin D Total PTH Intact Urine pH Urine WBC (Auto) Urine Creatinine Urine Total Protein Fluid Total Protein Vancomycin Trough Rheumatoid Factor Complement C4 Miscellaneous Test Crossmatch 10/31/16 10/31/16 11/01/16 11:46 18:34 00:20 WBC RBC Hgb Hct MCV MCH MCHC RDW Plt Count Lymph % (Auto) Benzie % (Auto) Lymph # Benzie # Baso # Seg Neutrophils % Seg Neuts % (Manual) Lymphocytes % (Manual) Monocytes % (Manual) Eosinophils % (Manual) Basophils % (Manual) Nucleated RBC % Seg Neutrophils # Seg Neutrophils # Man Lymphocytes # (Manual) Monocytes # (Manual) Eosinophils # (Manual) Basophils # (Manual) PT INR Fibrinogen dRVVT Confirm Interp Factor V Activity POC ABG pH POC ABG pCO2 POC ABG pO2 ABG pO2 ABG HCO3 ABG Base Excess ABG Hemoglobin Oxyhemoglobin Sodium Potassium Chloride Carbon Dioxide BUN Creatinine Glucose POC Glucose 159 H 140 H 132 H Lactic Acid Calcium Ionized Calcium Phosphorus Magnesium Direct Bilirubin AST ALT Alkaline Phosphatase Lactate Dehydrogenase Troponin T C-Reactive Protein Total Protein Albumin Prealbumin Triglycerides Cholesterol LDL Cholesterol Direct HDL Cholesterol 25-OH Vitamin D Total PTH Intact Urine pH Urine WBC (Auto) Urine Creatinine Urine Total Protein Fluid Total Protein Vancomycin Trough Rheumatoid Factor Complement C4 Miscellaneous Test Crossmatch 11/01/16 11/01/16 11/01/16 04:55 04:55 06:11 WBC 11.2 H RBC 2.68 L Hgb 7.5 L Hct 23.7 L MCV MCH MCHC RDW 16.1 H Plt Count Lymph % (Auto) Benzie % (Auto) 9.8 H Lymph # Benzie # 1.1 H Baso # Seg Neutrophils % 70.8 H Seg Neuts % (Manual) Lymphocytes % (Manual) Monocytes % (Manual) Eosinophils % (Manual) Basophils % (Manual) Nucleated RBC % Seg Neutrophils # 7.9 H Seg Neutrophils # Man Lymphocytes # (Manual) Monocytes # (Manual) Eosinophils # (Manual) Basophils # (Manual) PT INR Fibrinogen dRVVT Confirm Interp Factor V Activity POC ABG pH POC ABG pCO2 POC ABG pO2 ABG pO2 ABG HCO3 ABG Base Excess ABG Hemoglobin Oxyhemoglobin Sodium Potassium 3.3 L D Chloride Carbon Dioxide BUN 61 H Creatinine 1.9 H Glucose 114 H POC Glucose 115 H Lactic Acid Calcium Ionized Calcium Phosphorus 1.80 L D Magnesium Direct Bilirubin AST ALT Alkaline Phosphatase Lactate Dehydrogenase Troponin T C-Reactive Protein Total Protein Albumin Prealbumin Triglycerides Cholesterol LDL Cholesterol Direct HDL Cholesterol 25-OH Vitamin D Total PTH Intact Urine pH Urine WBC (Auto) Urine Creatinine Urine Total Protein Fluid Total Protein Vancomycin Trough Rheumatoid Factor Complement C4 Miscellaneous Test Crossmatch 11/01/16 11/01/16 11/01/16 12:29 18:23 23:58 WBC RBC Hgb Hct MCV MCH MCHC RDW Plt Count Lymph % (Auto) Benzie % (Auto) Lymph # Benzie # Baso # Seg Neutrophils % Seg Neuts % (Manual) Lymphocytes % (Manual) Monocytes % (Manual) Eosinophils % (Manual) Basophils % (Manual) Nucleated RBC % Seg Neutrophils # Seg Neutrophils # Man Lymphocytes # (Manual) Monocytes # (Manual) Eosinophils # (Manual) Basophils # (Manual) PT INR Fibrinogen dRVVT Confirm Interp Factor V Activity POC ABG pH POC ABG pCO2 POC ABG pO2 ABG pO2 ABG HCO3 ABG Base Excess ABG Hemoglobin Oxyhemoglobin Sodium Potassium Chloride Carbon Dioxide BUN Creatinine Glucose POC Glucose 142 H 143 H 128 H Lactic Acid Calcium Ionized Calcium Phosphorus Magnesium Direct Bilirubin AST ALT Alkaline Phosphatase Lactate Dehydrogenase Troponin T C-Reactive Protein Total Protein Albumin Prealbumin Triglycerides Cholesterol LDL Cholesterol Direct HDL Cholesterol 25-OH Vitamin D Total PTH Intact Urine pH Urine WBC (Auto) Urine Creatinine Urine Total Protein Fluid Total Protein Vancomycin Trough Rheumatoid Factor Complement C4 Miscellaneous Test Crossmatch 11/02/16 11/02/16 11/02/16 04:16 05:29 11:58 WBC RBC Hgb Hct MCV MCH MCHC RDW Plt Count Lymph % (Auto) Benzie % (Auto) Lymph # Benzie # Baso # Seg Neutrophils % Seg Neuts % (Manual) Lymphocytes % (Manual) Monocytes % (Manual) Eosinophils % (Manual) Basophils % (Manual) Nucleated RBC % Seg Neutrophils # Seg Neutrophils # Man Lymphocytes # (Manual) Monocytes # (Manual) Eosinophils # (Manual) Basophils # (Manual) PT INR Fibrinogen dRVVT Confirm Interp Factor V Activity POC ABG pH POC ABG pCO2 POC ABG pO2 ABG pO2 ABG HCO3 ABG Base Excess ABG Hemoglobin Oxyhemoglobin Sodium Potassium 3.1 L Chloride Carbon Dioxide BUN 73 H Creatinine 2.3 H Glucose 112 H POC Glucose 135 H 149 H Lactic Acid Calcium Ionized Calcium Phosphorus Magnesium Direct Bilirubin AST ALT Alkaline Phosphatase Lactate Dehydrogenase Troponin T C-Reactive Protein Total Protein Albumin Prealbumin Triglycerides Cholesterol LDL Cholesterol Direct HDL Cholesterol 25-OH Vitamin D Total PTH Intact Urine pH Urine WBC (Auto) Urine Creatinine Urine Total Protein Fluid Total Protein Vancomycin Trough Rheumatoid Factor Complement C4 Miscellaneous Test Crossmatch 11/02/16 11/02/16 11/03/16 17:42 22:54 06:00 WBC RBC Hgb Hct MCV MCH MCHC RDW Plt Count Lymph % (Auto) Benzie % (Auto) Lymph # Benzie # Baso # Seg Neutrophils % Seg Neuts % (Manual) Lymphocytes % (Manual) Monocytes % (Manual) Eosinophils % (Manual) Basophils % (Manual) Nucleated RBC % Seg Neutrophils # Seg Neutrophils # Man Lymphocytes # (Manual) Monocytes # (Manual) Eosinophils # (Manual) Basophils # (Manual) PT INR Fibrinogen dRVVT Confirm Interp Factor V Activity POC ABG pH POC ABG pCO2 POC ABG pO2 ABG pO2 ABG HCO3 ABG Base Excess ABG Hemoglobin Oxyhemoglobin Sodium Potassium Chloride 96.7 L Carbon Dioxide BUN 41 H Creatinine 1.5 H Glucose 145 H POC Glucose 182 H 115 H Lactic Acid Calcium Ionized Calcium Phosphorus 1.60 L D Magnesium 1.50 L Direct Bilirubin AST ALT Alkaline Phosphatase Lactate Dehydrogenase Troponin T C-Reactive Protein Total Protein Albumin Prealbumin Triglycerides Cholesterol LDL Cholesterol Direct HDL Cholesterol 25-OH Vitamin D Total PTH Intact Urine pH Urine WBC (Auto) Urine Creatinine Urine Total Protein Fluid Total Protein Vancomycin Trough Rheumatoid Factor Complement C4 Miscellaneous Test Crossmatch 11/03/16 11/03/16 11/03/16 11:53 17:45 23:37 WBC RBC Hgb Hct MCV MCH MCHC RDW Plt Count Lymph % (Auto) Benzie % (Auto) Lymph # Benzie # Baso # Seg Neutrophils % Seg Neuts % (Manual) Lymphocytes % (Manual) Monocytes % (Manual) Eosinophils % (Manual) Basophils % (Manual) Nucleated RBC % Seg Neutrophils # Seg Neutrophils # Man Lymphocytes # (Manual) Monocytes # (Manual) Eosinophils # (Manual) Basophils # (Manual) PT INR Fibrinogen dRVVT Confirm Interp Factor V Activity POC ABG pH POC ABG pCO2 POC ABG pO2 ABG pO2 ABG HCO3 ABG Base Excess ABG Hemoglobin Oxyhemoglobin Sodium Potassium Chloride Carbon Dioxide BUN Creatinine Glucose POC Glucose 131 H 134 H 113 H Lactic Acid Calcium Ionized Calcium Phosphorus Magnesium Direct Bilirubin AST ALT Alkaline Phosphatase Lactate Dehydrogenase Troponin T C-Reactive Protein Total Protein Albumin Prealbumin Triglycerides Cholesterol LDL Cholesterol Direct HDL Cholesterol 25-OH Vitamin D Total PTH Intact Urine pH Urine WBC (Auto) Urine Creatinine Urine Total Protein Fluid Total Protein Vancomycin Trough Rheumatoid Factor Complement C4 Miscellaneous Test Crossmatch 11/04/16 11/04/16 11/04/16 05:41 06:00 12:10 WBC RBC Hgb Hct MCV MCH MCHC RDW Plt Count Lymph % (Auto) Benzie % (Auto) Lymph # Benzie # Baso # Seg Neutrophils % Seg Neuts % (Manual) Lymphocytes % (Manual) Monocytes % (Manual) Eosinophils % (Manual) Basophils % (Manual) Nucleated RBC % Seg Neutrophils # Seg Neutrophils # Man Lymphocytes # (Manual) Monocytes # (Manual) Eosinophils # (Manual) Basophils # (Manual) PT INR Fibrinogen dRVVT Confirm Interp Factor V Activity POC ABG pH POC ABG pCO2 POC ABG pO2 ABG pO2 ABG HCO3 ABG Base Excess ABG Hemoglobin Oxyhemoglobin Sodium Potassium Chloride 96.7 L Carbon Dioxide BUN 52 H Creatinine 1.9 H Glucose 126 H POC Glucose 137 H 191 H Lactic Acid Calcium Ionized Calcium Phosphorus Magnesium Direct Bilirubin AST ALT Alkaline Phosphatase Lactate Dehydrogenase Troponin T C-Reactive Protein Total Protein Albumin Prealbumin Triglycerides Cholesterol LDL Cholesterol Direct HDL Cholesterol 25-OH Vitamin D Total PTH Intact Urine pH Urine WBC (Auto) Urine Creatinine Urine Total Protein Fluid Total Protein Vancomycin Trough Rheumatoid Factor Complement C4 Miscellaneous Test Crossmatch 11/04/16 11/05/16 11/05/16 22:57 03:10 05:10 WBC RBC Hgb Hct MCV MCH MCHC RDW Plt Count Lymph % (Auto) Benzie % (Auto) Lymph # Benzie # Baso # Seg Neutrophils % Seg Neuts % (Manual) Lymphocytes % (Manual) Monocytes % (Manual) Eosinophils % (Manual) Basophils % (Manual) Nucleated RBC % Seg Neutrophils # Seg Neutrophils # Man Lymphocytes # (Manual) Monocytes # (Manual) Eosinophils # (Manual) Basophils # (Manual) PT INR Fibrinogen dRVVT Confirm Interp Factor V Activity POC ABG pH POC ABG pCO2 POC ABG pO2 ABG pO2 ABG HCO3 ABG Base Excess ABG Hemoglobin Oxyhemoglobin Sodium 136 L Potassium Chloride 97.2 L Carbon Dioxide BUN 32 H Creatinine 1.3 H Glucose 123 H POC Glucose 125 H 108 H Lactic Acid Calcium 7.8 L Ionized Calcium Phosphorus Magnesium Direct Bilirubin AST ALT Alkaline Phosphatase Lactate Dehydrogenase Troponin T C-Reactive Protein Total Protein Albumin Prealbumin Triglycerides Cholesterol LDL Cholesterol Direct HDL Cholesterol 25-OH Vitamin D Total PTH Intact Urine pH Urine WBC (Auto) Urine Creatinine Urine Total Protein Fluid Total Protein Vancomycin Trough Rheumatoid Factor Complement C4 Miscellaneous Test Crossmatch 11/05/16 11/05/16 11/05/16 12:23 13:09 13:25 WBC RBC Hgb Hct MCV MCH MCHC RDW Plt Count Lymph % (Auto) Benzie % (Auto) Lymph # Benzie # Baso # Seg Neutrophils % Seg Neuts % (Manual) Lymphocytes % (Manual) Monocytes % (Manual) Eosinophils % (Manual) Basophils % (Manual) Nucleated RBC % Seg Neutrophils # Seg Neutrophils # Man Lymphocytes # (Manual) Monocytes # (Manual) Eosinophils # (Manual) Basophils # (Manual) PT INR Fibrinogen dRVVT Confirm Interp Factor V Activity POC ABG pH POC ABG pCO2 POC ABG pO2 ABG pO2 ABG HCO3 ABG Base Excess ABG Hemoglobin Oxyhemoglobin Sodium Potassium Chloride Carbon Dioxide BUN Creatinine Glucose POC Glucose 124 H Lactic Acid Calcium Ionized Calcium Phosphorus Magnesium Direct Bilirubin AST ALT Alkaline Phosphatase Lactate Dehydrogenase Troponin T C-Reactive Protein 11.40 H Total Protein Albumin Prealbumin Triglycerides Cholesterol LDL Cholesterol Direct HDL Cholesterol 25-OH Vitamin D Total PTH Intact Urine pH 9.0 H Urine WBC (Auto) Urine Creatinine Urine Total Protein Fluid Total Protein Vancomycin Trough Rheumatoid Factor Complement C4 Miscellaneous Test Crossmatch 11/05/16 11/05/16 11/05/16 13:25 17:54 23:42 WBC RBC Hgb Hct MCV MCH MCHC RDW Plt Count Lymph % (Auto) Benzie % (Auto) Lymph # Benzie # Baso # Seg Neutrophils % Seg Neuts % (Manual) Lymphocytes % (Manual) Monocytes % (Manual) Eosinophils % (Manual) Basophils % (Manual) Nucleated RBC % Seg Neutrophils # Seg Neutrophils # Man Lymphocytes # (Manual) Monocytes # (Manual) Eosinophils # (Manual) Basophils # (Manual) PT INR Fibrinogen dRVVT Confirm Interp Factor V Activity POC ABG pH POC ABG pCO2 POC ABG pO2 ABG pO2 ABG HCO3 ABG Base Excess ABG Hemoglobin Oxyhemoglobin Sodium Potassium Chloride Carbon Dioxide BUN Creatinine Glucose POC Glucose 114 H 134 H Lactic Acid Calcium Ionized Calcium Phosphorus Magnesium Direct Bilirubin AST ALT Alkaline Phosphatase Lactate Dehydrogenase Troponin T C-Reactive Protein Total Protein Albumin Prealbumin Triglycerides Cholesterol LDL Cholesterol Direct HDL Cholesterol 25-OH Vitamin D Total PTH Intact Urine pH Urine WBC (Auto) Urine Creatinine Urine Total Protein Fluid Total Protein Vancomycin Trough Rheumatoid Factor Complement C4 Miscellaneous Test Flexitest 1 H Crossmatch 11/06/16 11/06/16 11/06/16 04:56 06:25 06:25 WBC RBC 2.50 L Hgb 7.3 L Hct 22.5 L MCV MCH MCHC RDW 16.9 H Plt Count Lymph % (Auto) Benzie % (Auto) 10.5 H Lymph # Benzie # 1.1 H Baso # Seg Neutrophils % Seg Neuts % (Manual) Lymphocytes % (Manual) Monocytes % (Manual) Eosinophils % (Manual) Basophils % (Manual) Nucleated RBC % Seg Neutrophils # Seg Neutrophils # Man Lymphocytes # (Manual) Monocytes # (Manual) Eosinophils # (Manual) Basophils # (Manual) PT INR Fibrinogen dRVVT Confirm Interp Factor V Activity POC ABG pH POC ABG pCO2 POC ABG pO2 ABG pO2 ABG HCO3 ABG Base Excess ABG Hemoglobin Oxyhemoglobin Sodium Potassium 5.1 H Chloride 95.9 L Carbon Dioxide BUN 52 H Creatinine 1.8 H Glucose 117 H POC Glucose 120 H Lactic Acid Calcium Ionized Calcium Phosphorus Magnesium Direct Bilirubin AST 103 H ALT 77 H Alkaline Phosphatase 285 H Lactate Dehydrogenase Troponin T C-Reactive Protein Total Protein 6.2 L Albumin 1.8 L Prealbumin 0.180 L Triglycerides Cholesterol LDL Cholesterol Direct HDL Cholesterol 25-OH Vitamin D Total PTH Intact Urine pH Urine WBC (Auto) Urine Creatinine Urine Total Protein Fluid Total Protein Vancomycin Trough Rheumatoid Factor Complement C4 Miscellaneous Test Crossmatch 11/06/16 11/06/16 11/06/16 11:56 17:14 23:52 WBC RBC Hgb Hct MCV MCH MCHC RDW Plt Count Lymph % (Auto) Benzie % (Auto) Lymph # Benzie # Baso # Seg Neutrophils % Seg Neuts % (Manual) Lymphocytes % (Manual) Monocytes % (Manual) Eosinophils % (Manual) Basophils % (Manual) Nucleated RBC % Seg Neutrophils # Seg Neutrophils # Man Lymphocytes # (Manual) Monocytes # (Manual) Eosinophils # (Manual) Basophils # (Manual) PT INR Fibrinogen dRVVT Confirm Interp Factor V Activity POC ABG pH POC ABG pCO2 POC ABG pO2 ABG pO2 ABG HCO3 ABG Base Excess ABG Hemoglobin Oxyhemoglobin Sodium Potassium Chloride Carbon Dioxide BUN Creatinine Glucose POC Glucose 141 H 125 H 130 H Lactic Acid Calcium Ionized Calcium Phosphorus Magnesium Direct Bilirubin AST ALT Alkaline Phosphatase Lactate Dehydrogenase Troponin T C-Reactive Protein Total Protein Albumin Prealbumin Triglycerides Cholesterol LDL Cholesterol Direct HDL Cholesterol 25-OH Vitamin D Total PTH Intact Urine pH Urine WBC (Auto) Urine Creatinine Urine Total Protein Fluid Total Protein Vancomycin Trough Rheumatoid Factor Complement C4 Miscellaneous Test Crossmatch 11/07/16 11/07/16 11/07/16 06:30 06:30 09:37 WBC RBC 2.18 L Hgb 6.3 L Hct 19.7 L* MCV MCH MCHC RDW 16.8 H Plt Count Lymph % (Auto) Benzie % (Auto) 10.0 H Lymph # Benzie # 1.0 H Baso # Seg Neutrophils % Seg Neuts % (Manual) Lymphocytes % (Manual) Monocytes % (Manual) Eosinophils % (Manual) Basophils % (Manual) Nucleated RBC % Seg Neutrophils # Seg Neutrophils # Man Lymphocytes # (Manual) Monocytes # (Manual) Eosinophils # (Manual) Basophils # (Manual) PT INR Fibrinogen dRVVT Confirm Interp Factor V Activity POC ABG pH POC ABG pCO2 POC ABG pO2 ABG pO2 ABG HCO3 ABG Base Excess ABG Hemoglobin Oxyhemoglobin Sodium 135 L Potassium Chloride 95.6 L Carbon Dioxide BUN 70 H Creatinine 2.0 H Glucose 126 H POC Glucose Lactic Acid Calcium Ionized Calcium Phosphorus Magnesium Direct Bilirubin AST ALT Alkaline Phosphatase Lactate Dehydrogenase Troponin T C-Reactive Protein Total Protein Albumin Prealbumin Triglycerides Cholesterol LDL Cholesterol Direct HDL Cholesterol 25-OH Vitamin D Total PTH Intact Urine pH Urine WBC (Auto) Urine Creatinine Urine Total Protein Fluid Total Protein Vancomycin Trough Rheumatoid Factor Complement C4 Miscellaneous Test Crossmatch See Detail 11/07/16 11/07/16 11/07/16 12:52 18:51 21:26 WBC RBC Hgb Hct MCV MCH MCHC RDW Plt Count Lymph % (Auto) Benzie % (Auto) Lymph # Benzie # Baso # Seg Neutrophils % Seg Neuts % (Manual) Lymphocytes % (Manual) Monocytes % (Manual) Eosinophils % (Manual) Basophils % (Manual) Nucleated RBC % Seg Neutrophils # Seg Neutrophils # Man Lymphocytes # (Manual) Monocytes # (Manual) Eosinophils # (Manual) Basophils # (Manual) PT INR Fibrinogen dRVVT Confirm Interp Factor V Activity POC ABG pH 7.523 H POC ABG pCO2 34.6 L POC ABG pO2 53 L ABG pO2 ABG HCO3 ABG Base Excess ABG Hemoglobin Oxyhemoglobin Sodium Potassium Chloride Carbon Dioxide BUN Creatinine Glucose POC Glucose 142 H 155 H Lactic Acid Calcium Ionized Calcium Phosphorus Magnesium Direct Bilirubin AST ALT Alkaline Phosphatase Lactate Dehydrogenase Troponin T C-Reactive Protein Total Protein Albumin Prealbumin Triglycerides Cholesterol LDL Cholesterol Direct HDL Cholesterol 25-OH Vitamin D Total PTH Intact Urine pH Urine WBC (Auto) Urine Creatinine Urine Total Protein Fluid Total Protein Vancomycin Trough Rheumatoid Factor Complement C4 Miscellaneous Test Crossmatch 11/07/16 11/08/16 11/08/16 21:34 13:03 23:37 WBC RBC 2.63 L Hgb 7.7 L Hct 22.7 L MCV MCH MCHC RDW 17.0 H Plt Count Lymph % (Auto) Benzie % (Auto) Lymph # Benzie # Baso # Seg Neutrophils % Seg Neuts % (Manual) Lymphocytes % (Manual) Monocytes % (Manual) Eosinophils % (Manual) Basophils % (Manual) Nucleated RBC % Seg Neutrophils # Seg Neutrophils # Man Lymphocytes # (Manual) Monocytes # (Manual) Eosinophils # (Manual) Basophils # (Manual) PT INR Fibrinogen dRVVT Confirm Interp Factor V Activity POC ABG pH 7.478 H POC ABG pCO2 34.0 L POC ABG pO2 50 L ABG pO2 ABG HCO3 ABG Base Excess ABG Hemoglobin Oxyhemoglobin Sodium Potassium Chloride Carbon Dioxide BUN Creatinine Glucose POC Glucose 113 H Lactic Acid Calcium Ionized Calcium Phosphorus Magnesium Direct Bilirubin AST ALT Alkaline Phosphatase Lactate Dehydrogenase Troponin T C-Reactive Protein Total Protein Albumin Prealbumin Triglycerides Cholesterol LDL Cholesterol Direct HDL Cholesterol 25-OH Vitamin D Total PTH Intact Urine pH Urine WBC (Auto) Urine Creatinine Urine Total Protein Fluid Total Protein Vancomycin Trough Rheumatoid Factor Complement C4 Miscellaneous Test Crossmatch 11/09/16 11/09/16 11/09/16 04:35 10:15 18:21 WBC RBC 2.68 L Hgb 7.8 L Hct 23.3 L MCV MCH MCHC RDW 17.0 H Plt Count Lymph % (Auto) Benzie % (Auto) 12.1 H Lymph # Benzie # 1.1 H Baso # Seg Neutrophils % Seg Neuts % (Manual) Lymphocytes % (Manual) Monocytes % (Manual) Eosinophils % (Manual) Basophils % (Manual) Nucleated RBC % Seg Neutrophils # Seg Neutrophils # Man Lymphocytes # (Manual) Monocytes # (Manual) Eosinophils # (Manual) Basophils # (Manual) PT INR Fibrinogen dRVVT Confirm Interp Factor V Activity POC ABG pH POC ABG pCO2 POC ABG pO2 ABG pO2 ABG HCO3 ABG Base Excess ABG Hemoglobin Oxyhemoglobin Sodium Potassium Chloride Carbon Dioxide BUN 51 H Creatinine 1.8 H Glucose POC Glucose 60 L Lactic Acid Calcium 8.3 L Ionized Calcium Phosphorus Magnesium Direct Bilirubin AST ALT Alkaline Phosphatase Lactate Dehydrogenase Troponin T C-Reactive Protein Total Protein Albumin Prealbumin Triglycerides Cholesterol LDL Cholesterol Direct HDL Cholesterol 25-OH Vitamin D Total PTH Intact Urine pH Urine WBC (Auto) Urine Creatinine Urine Total Protein Fluid Total Protein Vancomycin Trough Rheumatoid Factor Complement C4 Miscellaneous Test Crossmatch 11/09/16 11/10/16 11/10/16 18:55 07:00 11:51 WBC RBC Hgb Hct MCV MCH MCHC RDW Plt Count Lymph % (Auto) Benzie % (Auto) Lymph # Benzie # Baso # Seg Neutrophils % Seg Neuts % (Manual) Lymphocytes % (Manual) Monocytes % (Manual) Eosinophils % (Manual) Basophils % (Manual) Nucleated RBC % Seg Neutrophils # Seg Neutrophils # Man Lymphocytes # (Manual) Monocytes # (Manual) Eosinophils # (Manual) Basophils # (Manual) PT INR Fibrinogen dRVVT Confirm Interp Factor V Activity POC ABG pH POC ABG pCO2 POC ABG pO2 ABG pO2 ABG HCO3 ABG Base Excess ABG Hemoglobin Oxyhemoglobin Sodium Potassium 3.0 L D Chloride 97.4 L Carbon Dioxide BUN 28 H Creatinine 1.3 H Glucose POC Glucose 68 L 120 H Lactic Acid Calcium 7.8 L Ionized Calcium Phosphorus Magnesium Direct Bilirubin AST ALT Alkaline Phosphatase Lactate Dehydrogenase Troponin T C-Reactive Protein Total Protein Albumin Prealbumin Triglycerides Cholesterol LDL Cholesterol Direct HDL Cholesterol 25-OH Vitamin D Total PTH Intact Urine pH Urine WBC (Auto) Urine Creatinine Urine Total Protein Fluid Total Protein Vancomycin Trough Rheumatoid Factor Complement C4 Miscellaneous Test Crossmatch 11/10/16 11/11/16 11/11/16 14:20 06:59 06:59 WBC RBC 2.81 L Hgb 8.1 L Hct 24.4 L MCV MCH MCHC RDW 16.4 H Plt Count Lymph % (Auto) Benzie % (Auto) 10.8 H Lymph # Benzie # 1.0 H Baso # Seg Neutrophils % Seg Neuts % (Manual) Lymphocytes % (Manual) Monocytes % (Manual) Eosinophils % (Manual) Basophils % (Manual) Nucleated RBC % Seg Neutrophils # Seg Neutrophils # Man Lymphocytes # (Manual) Monocytes # (Manual) Eosinophils # (Manual) Basophils # (Manual) PT INR Fibrinogen dRVVT Confirm Interp Factor V Activity POC ABG pH POC ABG pCO2 POC ABG pO2 ABG pO2 ABG HCO3 ABG Base Excess ABG Hemoglobin Oxyhemoglobin Sodium Potassium Chloride Carbon Dioxide BUN Creatinine Glucose POC Glucose Lactic Acid Calcium Ionized Calcium Phosphorus Magnesium Direct Bilirubin AST ALT Alkaline Phosphatase Lactate Dehydrogenase 196 H Troponin T C-Reactive Protein Total Protein 6.1 L Albumin Prealbumin Triglycerides Cholesterol LDL Cholesterol Direct HDL Cholesterol 25-OH Vitamin D Total PTH Intact Urine pH Urine WBC (Auto) Urine Creatinine Urine Total Protein Fluid Total Protein < 3.0 L Vancomycin Trough Rheumatoid Factor Complement C4 Miscellaneous Test Crossmatch 11/11/16 11/11/16 11/12/16 06:59 09:50 04:00 WBC RBC Hgb Hct MCV MCH MCHC RDW Plt Count Lymph % (Auto) Benzie % (Auto) Lymph # Benzie # Baso # Seg Neutrophils % Seg Neuts % (Manual) Lymphocytes % (Manual) Monocytes % (Manual) Eosinophils % (Manual) Basophils % (Manual) Nucleated RBC % Seg Neutrophils # Seg Neutrophils # Man Lymphocytes # (Manual) Monocytes # (Manual) Eosinophils # (Manual) Basophils # (Manual) PT INR 1.18 H Fibrinogen dRVVT Confirm Interp Factor V Activity POC ABG pH POC ABG pCO2 POC ABG pO2 ABG pO2 ABG HCO3 ABG Base Excess ABG Hemoglobin Oxyhemoglobin Sodium 136 L 133 L Potassium Chloride 96.1 L 94.8 L Carbon Dioxide 21 L BUN 37 H 42 H Creatinine 1.8 H 2.0 H Glucose POC Glucose Lactic Acid Calcium Ionized Calcium Phosphorus Magnesium Direct Bilirubin AST ALT Alkaline Phosphatase Lactate Dehydrogenase Troponin T C-Reactive Protein Total Protein Albumin Prealbumin Triglycerides Cholesterol LDL Cholesterol Direct HDL Cholesterol 25-OH Vitamin D Total PTH Intact Urine pH Urine WBC (Auto) Urine Creatinine Urine Total Protein Fluid Total Protein Vancomycin Trough Rheumatoid Factor Complement C4 Miscellaneous Test Crossmatch 11/12/16 11/12/16 11/13/16 04:00 23:55 05:53 WBC RBC Hgb 8.9 L Hct 27.2 L MCV MCH MCHC RDW Plt Count Lymph % (Auto) Benzie % (Auto) Lymph # Benzie # Baso # Seg Neutrophils % Seg Neuts % (Manual) Lymphocytes % (Manual) Monocytes % (Manual) Eosinophils % (Manual) Basophils % (Manual) Nucleated RBC % Seg Neutrophils # Seg Neutrophils # Man Lymphocytes # (Manual) Monocytes # (Manual) Eosinophils # (Manual) Basophils # (Manual) PT INR Fibrinogen dRVVT Confirm Interp Factor V Activity POC ABG pH POC ABG pCO2 POC ABG pO2 ABG pO2 ABG HCO3 ABG Base Excess ABG Hemoglobin Oxyhemoglobin Sodium Potassium Chloride Carbon Dioxide BUN Creatinine Glucose POC Glucose 132 H 120 H Lactic Acid Calcium Ionized Calcium Phosphorus Magnesium Direct Bilirubin AST ALT Alkaline Phosphatase Lactate Dehydrogenase Troponin T C-Reactive Protein Total Protein Albumin Prealbumin Triglycerides Cholesterol LDL Cholesterol Direct HDL Cholesterol 25-OH Vitamin D Total PTH Intact Urine pH Urine WBC (Auto) Urine Creatinine Urine Total Protein Fluid Total Protein Vancomycin Trough Rheumatoid Factor Complement C4 Miscellaneous Test Crossmatch 11/13/16 11/13/16 11/13/16 11:43 17:09 23:41 WBC RBC Hgb Hct MCV MCH MCHC RDW Plt Count Lymph % (Auto) Benzie % (Auto) Lymph # Benzie # Baso # Seg Neutrophils % Seg Neuts % (Manual) Lymphocytes % (Manual) Monocytes % (Manual) Eosinophils % (Manual) Basophils % (Manual) Nucleated RBC % Seg Neutrophils # Seg Neutrophils # Man Lymphocytes # (Manual) Monocytes # (Manual) Eosinophils # (Manual) Basophils # (Manual) PT INR Fibrinogen dRVVT Confirm Interp Factor V Activity POC ABG pH POC ABG pCO2 POC ABG pO2 ABG pO2 ABG HCO3 ABG Base Excess ABG Hemoglobin Oxyhemoglobin Sodium Potassium Chloride Carbon Dioxide BUN Creatinine Glucose POC Glucose 114 H 113 H 108 H Lactic Acid Calcium Ionized Calcium Phosphorus Magnesium Direct Bilirubin AST ALT Alkaline Phosphatase Lactate Dehydrogenase Troponin T C-Reactive Protein Total Protein Albumin Prealbumin Triglycerides Cholesterol LDL Cholesterol Direct HDL Cholesterol 25-OH Vitamin D Total PTH Intact Urine pH Urine WBC (Auto) Urine Creatinine Urine Total Protein Fluid Total Protein Vancomycin Trough Rheumatoid Factor Complement C4 Miscellaneous Test Crossmatch 11/13/16 11/15/16 11/15/16 Unknown 00:37 03:30 WBC 11.2 H RBC 2.72 L Hgb 7.6 L Hct 23.4 L MCV MCH MCHC RDW 16.5 H Plt Count Lymph % (Auto) Benzie % (Auto) Lymph # Benzie # Baso # Seg Neutrophils % Seg Neuts % (Manual) Lymphocytes % (Manual) Monocytes % (Manual) Eosinophils % (Manual) Basophils % (Manual) Nucleated RBC % Seg Neutrophils # Seg Neutrophils # Man Lymphocytes # (Manual) Monocytes # (Manual) Eosinophils # (Manual) Basophils # (Manual) PT INR Fibrinogen dRVVT Confirm Interp Factor V Activity POC ABG pH POC ABG pCO2 POC ABG pO2 ABG pO2 ABG HCO3 ABG Base Excess ABG Hemoglobin Oxyhemoglobin Sodium 135 L Potassium Chloride 95.2 L Carbon Dioxide BUN 52 H Creatinine 2.2 H Glucose POC Glucose 108 H Lactic Acid Calcium Ionized Calcium Phosphorus Magnesium Direct Bilirubin AST ALT Alkaline Phosphatase Lactate Dehydrogenase Troponin T C-Reactive Protein Total Protein Albumin Prealbumin Triglycerides Cholesterol LDL Cholesterol Direct HDL Cholesterol 25-OH Vitamin D Total PTH Intact Urine pH Urine WBC (Auto) Urine Creatinine Urine Total Protein Fluid Total Protein Vancomycin Trough Rheumatoid Factor Complement C4 Miscellaneous Test Crossmatch 11/15/16 11/15/16 11/15/16 03:30 05:04 11:50 WBC RBC Hgb Hct MCV MCH MCHC RDW Plt Count Lymph % (Auto) Benzie % (Auto) Lymph # Benzie # Baso # Seg Neutrophils % Seg Neuts % (Manual) Lymphocytes % (Manual) Monocytes % (Manual) Eosinophils % (Manual) Basophils % (Manual) Nucleated RBC % Seg Neutrophils # Seg Neutrophils # Man Lymphocytes # (Manual) Monocytes # (Manual) Eosinophils # (Manual) Basophils # (Manual) PT INR Fibrinogen dRVVT Confirm Interp Factor V Activity POC ABG pH POC ABG pCO2 POC ABG pO2 ABG pO2 ABG HCO3 ABG Base Excess ABG Hemoglobin Oxyhemoglobin Sodium Potassium 3.4 L Chloride Carbon Dioxide BUN 25 H Creatinine 1.5 H Glucose 103 H POC Glucose 121 H 144 H Lactic Acid Calcium Ionized Calcium Phosphorus Magnesium Direct Bilirubin AST ALT Alkaline Phosphatase Lactate Dehydrogenase Troponin T C-Reactive Protein Total Protein Albumin Prealbumin Triglycerides Cholesterol LDL Cholesterol Direct HDL Cholesterol 25-OH Vitamin D Total PTH Intact Urine pH Urine WBC (Auto) Urine Creatinine Urine Total Protein Fluid Total Protein Vancomycin Trough Rheumatoid Factor Complement C4 Miscellaneous Test Crossmatch 11/15/16 11/15/16 11/16/16 21:28 23:20 11:44 WBC RBC Hgb Hct MCV MCH MCHC RDW Plt Count Lymph % (Auto) Benzie % (Auto) Lymph # Benzie # Baso # Seg Neutrophils % Seg Neuts % (Manual) Lymphocytes % (Manual) Monocytes % (Manual) Eosinophils % (Manual) Basophils % (Manual) Nucleated RBC % Seg Neutrophils # Seg Neutrophils # Man Lymphocytes # (Manual) Monocytes # (Manual) Eosinophils # (Manual) Basophils # (Manual) PT INR Fibrinogen dRVVT Confirm Interp Factor V Activity POC ABG pH 7.462 H POC ABG pCO2 POC ABG pO2 71 L ABG pO2 ABG HCO3 ABG Base Excess ABG Hemoglobin Oxyhemoglobin Sodium Potassium Chloride Carbon Dioxide BUN Creatinine Glucose POC Glucose 116 H 133 H Lactic Acid Calcium Ionized Calcium Phosphorus Magnesium Direct Bilirubin AST ALT Alkaline Phosphatase Lactate Dehydrogenase Troponin T C-Reactive Protein Total Protein Albumin Prealbumin Triglycerides Cholesterol LDL Cholesterol Direct HDL Cholesterol 25-OH Vitamin D Total PTH Intact Urine pH Urine WBC (Auto) Urine Creatinine Urine Total Protein Fluid Total Protein Vancomycin Trough Rheumatoid Factor Complement C4 Miscellaneous Test Crossmatch 11/16/16 11/16/16 11/16/16 12:20 17:05 23:35 WBC 11.7 H RBC 2.73 L Hgb 7.6 L Hct 23.7 L MCV MCH MCHC RDW 16.6 H Plt Count Lymph % (Auto) Benzie % (Auto) Lymph # Benzie # Baso # Seg Neutrophils % Seg Neuts % (Manual) Lymphocytes % (Manual) Monocytes % (Manual) Eosinophils % (Manual) Basophils % (Manual) Nucleated RBC % Seg Neutrophils # Seg Neutrophils # Man Lymphocytes # (Manual) Monocytes # (Manual) Eosinophils # (Manual) Basophils # (Manual) PT INR Fibrinogen dRVVT Confirm Interp Factor V Activity POC ABG pH POC ABG pCO2 POC ABG pO2 ABG pO2 ABG HCO3 ABG Base Excess ABG Hemoglobin Oxyhemoglobin Sodium Potassium Chloride Carbon Dioxide BUN Creatinine Glucose POC Glucose 154 H 125 H Lactic Acid Calcium Ionized Calcium Phosphorus Magnesium Direct Bilirubin AST ALT Alkaline Phosphatase Lactate Dehydrogenase Troponin T C-Reactive Protein Total Protein Albumin Prealbumin Triglycerides Cholesterol LDL Cholesterol Direct HDL Cholesterol 25-OH Vitamin D Total PTH Intact Urine pH Urine WBC (Auto) Urine Creatinine Urine Total Protein Fluid Total Protein Vancomycin Trough Rheumatoid Factor Complement C4 Miscellaneous Test Crossmatch 11/17/16 11/17/16 11/17/16 03:20 03:20 03:20 WBC RBC 2.55 L Hgb 7.3 L Hct 21.9 L MCV MCH MCHC RDW 16.6 H Plt Count Lymph % (Auto) Benzie % (Auto) 11.5 H Lymph # Benzie # 1.1 H Baso # Seg Neutrophils % Seg Neuts % (Manual) Lymphocytes % (Manual) Monocytes % (Manual) Eosinophils % (Manual) Basophils % (Manual) Nucleated RBC % Seg Neutrophils # Seg Neutrophils # Man Lymphocytes # (Manual) Monocytes # (Manual) Eosinophils # (Manual) Basophils # (Manual) PT 16.8 H INR 1.37 H Fibrinogen dRVVT Confirm Interp Factor V Activity POC ABG pH POC ABG pCO2 POC ABG pO2 ABG pO2 ABG HCO3 ABG Base Excess ABG Hemoglobin Oxyhemoglobin Sodium Potassium 3.5 L Chloride Carbon Dioxide BUN 21 H Creatinine Glucose POC Glucose Lactic Acid Calcium 7.9 L Ionized Calcium Phosphorus Magnesium Direct Bilirubin AST ALT Alkaline Phosphatase Lactate Dehydrogenase Troponin T C-Reactive Protein Total Protein Albumin Prealbumin Triglycerides Cholesterol LDL Cholesterol Direct HDL Cholesterol 25-OH Vitamin D Total PTH Intact Urine pH Urine WBC (Auto) Urine Creatinine Urine Total Protein Fluid Total Protein Vancomycin Trough Rheumatoid Factor Complement C4 Miscellaneous Test Crossmatch 11/17/16 11/17/16 11/17/16 06:34 11:21 21:22 WBC RBC Hgb Hct MCV MCH MCHC RDW Plt Count Lymph % (Auto) Benzie % (Auto) Lymph # Benzie # Baso # Seg Neutrophils % Seg Neuts % (Manual) Lymphocytes % (Manual) Monocytes % (Manual) Eosinophils % (Manual) Basophils % (Manual) Nucleated RBC % Seg Neutrophils # Seg Neutrophils # Man Lymphocytes # (Manual) Monocytes # (Manual) Eosinophils # (Manual) Basophils # (Manual) PT INR Fibrinogen dRVVT Confirm Interp Factor V Activity POC ABG pH 7.467 H POC ABG pCO2 POC ABG pO2 73 L ABG pO2 ABG HCO3 ABG Base Excess ABG Hemoglobin Oxyhemoglobin Sodium Potassium Chloride Carbon Dioxide BUN Creatinine Glucose POC Glucose 121 H 119 H Lactic Acid Calcium Ionized Calcium Phosphorus Magnesium Direct Bilirubin AST ALT Alkaline Phosphatase Lactate Dehydrogenase Troponin T C-Reactive Protein Total Protein Albumin Prealbumin Triglycerides Cholesterol LDL Cholesterol Direct HDL Cholesterol 25-OH Vitamin D Total PTH Intact Urine pH Urine WBC (Auto) Urine Creatinine Urine Total Protein Fluid Total Protein Vancomycin Trough Rheumatoid Factor Complement C4 Miscellaneous Test Crossmatch 11/18/16 11/18/16 11/19/16 12:16 17:19 00:00 WBC RBC Hgb Hct MCV MCH MCHC RDW Plt Count Lymph % (Auto) Benzie % (Auto) Lymph # Benzie # Baso # Seg Neutrophils % Seg Neuts % (Manual) Lymphocytes % (Manual) Monocytes % (Manual) Eosinophils % (Manual) Basophils % (Manual) Nucleated RBC % Seg Neutrophils # Seg Neutrophils # Man Lymphocytes # (Manual) Monocytes # (Manual) Eosinophils # (Manual) Basophils # (Manual) PT INR Fibrinogen dRVVT Confirm Interp Factor V Activity POC ABG pH POC ABG pCO2 POC ABG pO2 ABG pO2 ABG HCO3 ABG Base Excess ABG Hemoglobin Oxyhemoglobin Sodium Potassium Chloride Carbon Dioxide BUN Creatinine Glucose POC Glucose 124 H 162 H 139 H Lactic Acid Calcium Ionized Calcium Phosphorus Magnesium Direct Bilirubin AST ALT Alkaline Phosphatase Lactate Dehydrogenase Troponin T C-Reactive Protein Total Protein Albumin Prealbumin Triglycerides Cholesterol LDL Cholesterol Direct HDL Cholesterol 25-OH Vitamin D Total PTH Intact Urine pH Urine WBC (Auto) Urine Creatinine Urine Total Protein Fluid Total Protein Vancomycin Trough Rheumatoid Factor Complement C4 Miscellaneous Test Crossmatch 11/19/16 11/19/16 11/20/16 05:00 12:43 00:40 WBC RBC Hgb Hct MCV MCH MCHC RDW Plt Count Lymph % (Auto) Benzie % (Auto) Lymph # Benzie # Baso # Seg Neutrophils % Seg Neuts % (Manual) Lymphocytes % (Manual) Monocytes % (Manual) Eosinophils % (Manual) Basophils % (Manual) Nucleated RBC % Seg Neutrophils # Seg Neutrophils # Man Lymphocytes # (Manual) Monocytes # (Manual) Eosinophils # (Manual) Basophils # (Manual) PT INR Fibrinogen dRVVT Confirm Interp Factor V Activity POC ABG pH POC ABG pCO2 POC ABG pO2 ABG pO2 ABG HCO3 ABG Base Excess ABG Hemoglobin Oxyhemoglobin Sodium Potassium Chloride Carbon Dioxide BUN Creatinine Glucose POC Glucose 110 H 125 H 136 H Lactic Acid Calcium Ionized Calcium Phosphorus Magnesium Direct Bilirubin AST ALT Alkaline Phosphatase Lactate Dehydrogenase Troponin T C-Reactive Protein Total Protein Albumin Prealbumin Triglycerides Cholesterol LDL Cholesterol Direct HDL Cholesterol 25-OH Vitamin D Total PTH Intact Urine pH Urine WBC (Auto) Urine Creatinine Urine Total Protein Fluid Total Protein Vancomycin Trough Rheumatoid Factor Complement C4 Miscellaneous Test Crossmatch 11/20/16 11/20/16 11/20/16 05:00 05:00 05:51 WBC 13.1 H RBC 2.74 L Hgb 7.7 L Hct 23.6 L MCV MCH MCHC RDW 16.9 H Plt Count Lymph % (Auto) Benzie % (Auto) 10.8 H Lymph # Benzie # 1.4 H Baso # Seg Neutrophils % Seg Neuts % (Manual) Lymphocytes % (Manual) Monocytes % (Manual) Eosinophils % (Manual) Basophils % (Manual) Nucleated RBC % Seg Neutrophils # 7.9 H Seg Neutrophils # Man Lymphocytes # (Manual) Monocytes # (Manual) Eosinophils # (Manual) Basophils # (Manual) PT INR Fibrinogen dRVVT Confirm Interp Factor V Activity POC ABG pH POC ABG pCO2 POC ABG pO2 ABG pO2 ABG HCO3 ABG Base Excess ABG Hemoglobin Oxyhemoglobin Sodium Potassium Chloride Carbon Dioxide BUN 31 H Creatinine 1.8 H Glucose 129 H POC Glucose 133 H Lactic Acid Calcium Ionized Calcium Phosphorus Magnesium Direct Bilirubin AST ALT Alkaline Phosphatase Lactate Dehydrogenase Troponin T C-Reactive Protein Total Protein Albumin Prealbumin Triglycerides Cholesterol LDL Cholesterol Direct HDL Cholesterol 25-OH Vitamin D Total PTH Intact Urine pH Urine WBC (Auto) Urine Creatinine Urine Total Protein Fluid Total Protein Vancomycin Trough Rheumatoid Factor Complement C4 Miscellaneous Test Crossmatch 11/20/16 11/20/16 11/21/16 12:40 18:10 01:20 WBC RBC Hgb Hct MCV MCH MCHC RDW Plt Count Lymph % (Auto) Benzie % (Auto) Lymph # Benzie # Baso # Seg Neutrophils % Seg Neuts % (Manual) Lymphocytes % (Manual) Monocytes % (Manual) Eosinophils % (Manual) Basophils % (Manual) Nucleated RBC % Seg Neutrophils # Seg Neutrophils # Man Lymphocytes # (Manual) Monocytes # (Manual) Eosinophils # (Manual) Basophils # (Manual) PT INR Fibrinogen dRVVT Confirm Interp Factor V Activity POC ABG pH POC ABG pCO2 POC ABG pO2 ABG pO2 ABG HCO3 ABG Base Excess ABG Hemoglobin Oxyhemoglobin Sodium Potassium Chloride Carbon Dioxide BUN Creatinine Glucose POC Glucose 134 H 138 H 136 H Lactic Acid Calcium Ionized Calcium Phosphorus Magnesium Direct Bilirubin AST ALT Alkaline Phosphatase Lactate Dehydrogenase Troponin T C-Reactive Protein Total Protein Albumin Prealbumin Triglycerides Cholesterol LDL Cholesterol Direct HDL Cholesterol 25-OH Vitamin D Total PTH Intact Urine pH Urine WBC (Auto) Urine Creatinine Urine Total Protein Fluid Total Protein Vancomycin Trough Rheumatoid Factor Complement C4 Miscellaneous Test Crossmatch 11/21/16 11/21/16 11/21/16 07:04 07:45 07:45 WBC 22.0 H RBC 2.91 L Hgb 8.2 L Hct 25.4 L MCV MCH MCHC RDW 17.1 H Plt Count Lymph % (Auto) Benzie % (Auto) Lymph # Benzie # Baso # Seg Neutrophils % Seg Neuts % (Manual) Lymphocytes % (Manual) 8.0 L Monocytes % (Manual) Eosinophils % (Manual) Basophils % (Manual) Nucleated RBC % Seg Neutrophils # Seg Neutrophils # Man 14.7 H Lymphocytes # (Manual) Monocytes # (Manual) 1.1 H Eosinophils # (Manual) Basophils # (Manual) PT INR Fibrinogen dRVVT Confirm Interp Factor V Activity POC ABG pH POC ABG pCO2 POC ABG pO2 ABG pO2 ABG HCO3 ABG Base Excess ABG Hemoglobin Oxyhemoglobin Sodium Potassium Chloride Carbon Dioxide BUN 42 H Creatinine 2.0 H Glucose POC Glucose 108 H Lactic Acid Calcium Ionized Calcium Phosphorus Magnesium Direct Bilirubin AST ALT Alkaline Phosphatase Lactate Dehydrogenase Troponin T C-Reactive Protein Total Protein Albumin Prealbumin Triglycerides Cholesterol LDL Cholesterol Direct HDL Cholesterol 25-OH Vitamin D Total PTH Intact Urine pH Urine WBC (Auto) Urine Creatinine Urine Total Protein Fluid Total Protein Vancomycin Trough Rheumatoid Factor Complement C4 Miscellaneous Test Crossmatch 11/21/16 11/21/16 11/21/16 08:38 10:09 11:20 WBC RBC Hgb Hct MCV MCH MCHC RDW Plt Count Lymph % (Auto) Benzie % (Auto) Lymph # Benzie # Baso # Seg Neutrophils % Seg Neuts % (Manual) Lymphocytes % (Manual) Monocytes % (Manual) Eosinophils % (Manual) Basophils % (Manual) Nucleated RBC % Seg Neutrophils # Seg Neutrophils # Man Lymphocytes # (Manual) Monocytes # (Manual) Eosinophils # (Manual) Basophils # (Manual) PT INR Fibrinogen dRVVT Confirm Interp Factor V Activity POC ABG pH 7.346 L POC ABG pCO2 34.4 L POC ABG pO2 314 H ABG pO2 ABG HCO3 ABG Base Excess ABG Hemoglobin Oxyhemoglobin Sodium Potassium Chloride Carbon Dioxide BUN Creatinine Glucose POC Glucose 195 H 153 H Lactic Acid Calcium Ionized Calcium Phosphorus Magnesium Direct Bilirubin AST ALT Alkaline Phosphatase Lactate Dehydrogenase Troponin T C-Reactive Protein Total Protein Albumin Prealbumin Triglycerides Cholesterol LDL Cholesterol Direct HDL Cholesterol 25-OH Vitamin D Total PTH Intact Urine pH Urine WBC (Auto) Urine Creatinine Urine Total Protein Fluid Total Protein Vancomycin Trough Rheumatoid Factor Complement C4 Miscellaneous Test Crossmatch 11/21/16 11/22/16 11/22/16 23:37 04:48 05:00 WBC 29.7 H RBC 2.73 L Hgb 7.5 L Hct 24.2 L MCV MCH 27 L MCHC RDW 17.4 H Plt Count Lymph % (Auto) Benzie % (Auto) Lymph # Benzie # Baso # Seg Neutrophils % Seg Neuts % (Manual) Lymphocytes % (Manual) 7.0 L Monocytes % (Manual) Eosinophils % (Manual) Basophils % (Manual) Nucleated RBC % Seg Neutrophils # Seg Neutrophils # Man 15.4 H Lymphocytes # (Manual) Monocytes # (Manual) Eosinophils # (Manual) Basophils # (Manual) PT INR Fibrinogen dRVVT Confirm Interp Factor V Activity POC ABG pH POC ABG pCO2 24.6 L POC ABG pO2 189 H ABG pO2 ABG HCO3 ABG Base Excess ABG Hemoglobin Oxyhemoglobin Sodium Potassium Chloride Carbon Dioxide BUN Creatinine Glucose POC Glucose 65 L Lactic Acid Calcium Ionized Calcium Phosphorus Magnesium Direct Bilirubin AST ALT Alkaline Phosphatase Lactate Dehydrogenase Troponin T C-Reactive Protein Total Protein Albumin Prealbumin Triglycerides Cholesterol LDL Cholesterol Direct HDL Cholesterol 25-OH Vitamin D Total PTH Intact Urine pH Urine WBC (Auto) Urine Creatinine Urine Total Protein Fluid Total Protein Vancomycin Trough Rheumatoid Factor Complement C4 Miscellaneous Test Crossmatch 11/22/16 11/23/16 11/23/16 05:00 03:44 04:06 WBC RBC 2.52 L Hgb 7.2 L Hct 21.5 L MCV MCH MCHC RDW 17.1 H Plt Count Lymph % (Auto) Benzie % (Auto) 12.4 H Lymph # Benzie # 1.4 H Baso # Seg Neutrophils % Seg Neuts % (Manual) Lymphocytes % (Manual) Monocytes % (Manual) Eosinophils % (Manual) Basophils % (Manual) Nucleated RBC % Seg Neutrophils # Seg Neutrophils # Man Lymphocytes # (Manual) Monocytes # (Manual) Eosinophils # (Manual) Basophils # (Manual) PT INR Fibrinogen dRVVT Confirm Interp Factor V Activity POC ABG pH 7.493 H POC ABG pCO2 29.5 L POC ABG pO2 49 L ABG pO2 ABG HCO3 ABG Base Excess ABG Hemoglobin Oxyhemoglobin Sodium 134 L Potassium Chloride 95.9 L Carbon Dioxide 14 L D BUN 51 H Creatinine 2.6 H Glucose POC Glucose Lactic Acid Calcium Ionized Calcium Phosphorus Magnesium Direct Bilirubin AST ALT Alkaline Phosphatase Lactate Dehydrogenase Troponin T C-Reactive Protein Total Protein Albumin Prealbumin Triglycerides Cholesterol LDL Cholesterol Direct HDL Cholesterol 25-OH Vitamin D Total PTH Intact Urine pH Urine WBC (Auto) Urine Creatinine Urine Total Protein Fluid Total Protein Vancomycin Trough Rheumatoid Factor Complement C4 Miscellaneous Test Crossmatch 11/23/16 11/23/16 11/24/16 04:06 11:29 06:39 WBC RBC Hgb Hct MCV MCH MCHC RDW Plt Count Lymph % (Auto) Benzie % (Auto) Lymph # Benzie # Baso # Seg Neutrophils % Seg Neuts % (Manual) Lymphocytes % (Manual) Monocytes % (Manual) Eosinophils % (Manual) Basophils % (Manual) Nucleated RBC % Seg Neutrophils # Seg Neutrophils # Man Lymphocytes # (Manual) Monocytes # (Manual) Eosinophils # (Manual) Basophils # (Manual) PT INR Fibrinogen dRVVT Confirm Interp Factor V Activity POC ABG pH POC ABG pCO2 POC ABG pO2 ABG pO2 ABG HCO3 ABG Base Excess ABG Hemoglobin Oxyhemoglobin Sodium 136 L Potassium Chloride 95.2 L Carbon Dioxide BUN 60 H Creatinine 2.9 H Glucose POC Glucose 69 L 305 H Lactic Acid Calcium Ionized Calcium Phosphorus Magnesium 1.60 L Direct Bilirubin AST ALT Alkaline Phosphatase Lactate Dehydrogenase Troponin T C-Reactive Protein Total Protein Albumin Prealbumin Triglycerides Cholesterol LDL Cholesterol Direct HDL Cholesterol 25-OH Vitamin D Total PTH Intact Urine pH Urine WBC (Auto) Urine Creatinine Urine Total Protein Fluid Total Protein Vancomycin Trough Rheumatoid Factor Complement C4 Miscellaneous Test Crossmatch 11/24/16 11/24/16 11/24/16 06:43 08:08 08:08 WBC 11.2 H RBC 2.47 L Hgb 6.8 L Hct 20.6 L MCV MCH MCHC RDW 17.0 H Plt Count Lymph % (Auto) Benzie % (Auto) 10.3 H Lymph # Benzie # 1.2 H Baso # Seg Neutrophils % Seg Neuts % (Manual) Lymphocytes % (Manual) Monocytes % (Manual) Eosinophils % (Manual) Basophils % (Manual) Nucleated RBC % Seg Neutrophils # Seg Neutrophils # Man Lymphocytes # (Manual) Monocytes # (Manual) Eosinophils # (Manual) Basophils # (Manual) PT INR Fibrinogen dRVVT Confirm Interp Factor V Activity POC ABG pH POC ABG pCO2 POC ABG pO2 ABG pO2 ABG HCO3 ABG Base Excess ABG Hemoglobin Oxyhemoglobin Sodium 135 L Potassium Chloride 96.3 L Carbon Dioxide BUN 61 H Creatinine 3.1 H Glucose POC Glucose 62 L Lactic Acid Calcium 8.2 L Ionized Calcium Phosphorus Magnesium Direct Bilirubin AST ALT Alkaline Phosphatase Lactate Dehydrogenase Troponin T C-Reactive Protein Total Protein Albumin Prealbumin Triglycerides Cholesterol LDL Cholesterol Direct HDL Cholesterol 25-OH Vitamin D Total PTH Intact Urine pH Urine WBC (Auto) Urine Creatinine Urine Total Protein Fluid Total Protein Vancomycin Trough Rheumatoid Factor Complement C4 Miscellaneous Test Crossmatch 11/24/16 11/24/16 11/24/16 08:34 11:20 12:41 WBC RBC Hgb Hct MCV MCH MCHC RDW Plt Count Lymph % (Auto) Benzie % (Auto) Lymph # Benzie # Baso # Seg Neutrophils % Seg Neuts % (Manual) Lymphocytes % (Manual) Monocytes % (Manual) Eosinophils % (Manual) Basophils % (Manual) Nucleated RBC % Seg Neutrophils # Seg Neutrophils # Man Lymphocytes # (Manual) Monocytes # (Manual) Eosinophils # (Manual) Basophils # (Manual) PT INR Fibrinogen dRVVT Confirm Interp Factor V Activity POC ABG pH POC ABG pCO2 POC ABG pO2 ABG pO2 ABG HCO3 ABG Base Excess ABG Hemoglobin Oxyhemoglobin Sodium Potassium Chloride Carbon Dioxide BUN Creatinine Glucose POC Glucose 108 H Lactic Acid Calcium Ionized Calcium Phosphorus Magnesium 1.60 L Direct Bilirubin AST ALT Alkaline Phosphatase Lactate Dehydrogenase Troponin T C-Reactive Protein Total Protein Albumin Prealbumin Triglycerides Cholesterol LDL Cholesterol Direct HDL Cholesterol 25-OH Vitamin D Total PTH Intact Urine pH Urine WBC (Auto) Urine Creatinine Urine Total Protein Fluid Total Protein Vancomycin Trough Rheumatoid Factor Complement C4 Miscellaneous Test Crossmatch See Detail 11/25/16 11/25/16 11/25/16 00:03 04:42 04:42 WBC RBC 3.03 L Hgb 8.6 L Hct 25.3 L MCV MCH MCHC RDW 16.2 H Plt Count Lymph % (Auto) Benzie % (Auto) 8.1 H Lymph # Benzie # Baso # Seg Neutrophils % 71.3 H Seg Neuts % (Manual) Lymphocytes % (Manual) Monocytes % (Manual) Eosinophils % (Manual) Basophils % (Manual) Nucleated RBC % Seg Neutrophils # Seg Neutrophils # Man Lymphocytes # (Manual) Monocytes # (Manual) Eosinophils # (Manual) Basophils # (Manual) PT INR Fibrinogen dRVVT Confirm Interp Factor V Activity POC ABG pH POC ABG pCO2 POC ABG pO2 ABG pO2 ABG HCO3 ABG Base Excess ABG Hemoglobin Oxyhemoglobin Sodium Potassium Chloride Carbon Dioxide BUN 61 H Creatinine 3.0 H Glucose 102 H POC Glucose 113 H Lactic Acid Calcium 8.2 L Ionized Calcium Phosphorus Magnesium Direct Bilirubin AST ALT Alkaline Phosphatase 142 H Lactate Dehydrogenase Troponin T C-Reactive Protein Total Protein 5.7 L Albumin 1.5 L Prealbumin Triglycerides Cholesterol LDL Cholesterol Direct HDL Cholesterol 25-OH Vitamin D Total PTH Intact Urine pH Urine WBC (Auto) Urine Creatinine Urine Total Protein Fluid Total Protein Vancomycin Trough Rheumatoid Factor Complement C4 Miscellaneous Test Crossmatch 11/25/16 11/25/16 11/25/16 05:12 11:31 14:12 WBC RBC Hgb Hct MCV MCH MCHC RDW Plt Count Lymph % (Auto) Benzie % (Auto) Lymph # Benzie # Baso # Seg Neutrophils % Seg Neuts % (Manual) Lymphocytes % (Manual) Monocytes % (Manual) Eosinophils % (Manual) Basophils % (Manual) Nucleated RBC % Seg Neutrophils # Seg Neutrophils # Man Lymphocytes # (Manual) Monocytes # (Manual) Eosinophils # (Manual) Basophils # (Manual) PT INR Fibrinogen dRVVT Confirm Interp Factor V Activity POC ABG pH 7.487 H POC ABG pCO2 POC ABG pO2 153 H ABG pO2 ABG HCO3 ABG Base Excess ABG Hemoglobin Oxyhemoglobin Sodium Potassium Chloride Carbon Dioxide BUN Creatinine Glucose POC Glucose 131 H 140 H Lactic Acid Calcium Ionized Calcium Phosphorus Magnesium Direct Bilirubin AST ALT Alkaline Phosphatase Lactate Dehydrogenase Troponin T C-Reactive Protein Total Protein Albumin Prealbumin Triglycerides Cholesterol LDL Cholesterol Direct HDL Cholesterol 25-OH Vitamin D Total PTH Intact Urine pH Urine WBC (Auto) Urine Creatinine Urine Total Protein Fluid Total Protein Vancomycin Trough Rheumatoid Factor Complement C4 Miscellaneous Test Crossmatch 11/25/16 11/26/16 11/26/16 17:23 00:09 05:13 WBC RBC 2.94 L Hgb 8.4 L Hct 24.6 L MCV MCH MCHC RDW 16.4 H Plt Count Lymph % (Auto) Benzie % (Auto) 12.3 H Lymph # Benzie # 1.1 H Baso # Seg Neutrophils % Seg Neuts % (Manual) Lymphocytes % (Manual) Monocytes % (Manual) Eosinophils % (Manual) Basophils % (Manual) Nucleated RBC % Seg Neutrophils # Seg Neutrophils # Man Lymphocytes # (Manual) Monocytes # (Manual) Eosinophils # (Manual) Basophils # (Manual) PT INR Fibrinogen dRVVT Confirm Interp Factor V Activity POC ABG pH POC ABG pCO2 POC ABG pO2 ABG pO2 ABG HCO3 ABG Base Excess ABG Hemoglobin Oxyhemoglobin Sodium Potassium Chloride Carbon Dioxide BUN Creatinine Glucose POC Glucose 146 H 112 H Lactic Acid Calcium Ionized Calcium Phosphorus Magnesium Direct Bilirubin AST ALT Alkaline Phosphatase Lactate Dehydrogenase Troponin T C-Reactive Protein Total Protein Albumin Prealbumin Triglycerides Cholesterol LDL Cholesterol Direct HDL Cholesterol 25-OH Vitamin D Total PTH Intact Urine pH Urine WBC (Auto) Urine Creatinine Urine Total Protein Fluid Total Protein Vancomycin Trough Rheumatoid Factor Complement C4 Miscellaneous Test Crossmatch 11/26/16 11/26/16 11/26/16 05:13 05:28 11:53 WBC RBC Hgb Hct MCV MCH MCHC RDW Plt Count Lymph % (Auto) Benzie % (Auto) Lymph # Benzie # Baso # Seg Neutrophils % Seg Neuts % (Manual) Lymphocytes % (Manual) Monocytes % (Manual) Eosinophils % (Manual) Basophils % (Manual) Nucleated RBC % Seg Neutrophils # Seg Neutrophils # Man Lymphocytes # (Manual) Monocytes # (Manual) Eosinophils # (Manual) Basophils # (Manual) PT INR Fibrinogen dRVVT Confirm Interp Factor V Activity POC ABG pH POC ABG pCO2 POC ABG pO2 ABG pO2 ABG HCO3 ABG Base Excess ABG Hemoglobin Oxyhemoglobin Sodium Potassium Chloride 97.8 L Carbon Dioxide BUN 37 H Creatinine 2.0 H Glucose 109 H POC Glucose 117 H 111 H Lactic Acid Calcium 7.9 L Ionized Calcium Phosphorus 1.80 L D Magnesium Direct Bilirubin AST ALT Alkaline Phosphatase Lactate Dehydrogenase Troponin T C-Reactive Protein Total Protein Albumin Prealbumin Triglycerides Cholesterol LDL Cholesterol Direct HDL Cholesterol 25-OH Vitamin D Total PTH Intact Urine pH Urine WBC (Auto) Urine Creatinine Urine Total Protein Fluid Total Protein Vancomycin Trough Rheumatoid Factor Complement C4 Miscellaneous Test Crossmatch 11/26/16 11/27/16 11/27/16 17:14 04:50 06:02 WBC RBC Hgb Hct MCV MCH MCHC RDW Plt Count Lymph % (Auto) Benzie % (Auto) Lymph # Benzie # Baso # Seg Neutrophils % Seg Neuts % (Manual) Lymphocytes % (Manual) Monocytes % (Manual) Eosinophils % (Manual) Basophils % (Manual) Nucleated RBC % Seg Neutrophils # Seg Neutrophils # Man Lymphocytes # (Manual) Monocytes # (Manual) Eosinophils # (Manual) Basophils # (Manual) PT INR Fibrinogen dRVVT Confirm Interp Factor V Activity POC ABG pH POC ABG pCO2 POC ABG pO2 ABG pO2 75.2 L ABG HCO3 26.4 H ABG Base Excess ABG Hemoglobin 7.6 L Oxyhemoglobin 94.8 L Sodium Potassium Chloride Carbon Dioxide BUN 49 H Creatinine 2.3 H Glucose POC Glucose 115 H Lactic Acid Calcium Ionized Calcium Phosphorus 1.50 L Magnesium Direct Bilirubin AST ALT Alkaline Phosphatase Lactate Dehydrogenase Troponin T C-Reactive Protein Total Protein Albumin Prealbumin Triglycerides Cholesterol LDL Cholesterol Direct HDL Cholesterol 25-OH Vitamin D Total PTH Intact Urine pH Urine WBC (Auto) Urine Creatinine Urine Total Protein Fluid Total Protein Vancomycin Trough Rheumatoid Factor Complement C4 Miscellaneous Test Crossmatch 10/08/17 10/08/17 10/08/17 06:02 11:25 17:25 WBC 11.6 H RBC 2.75 L Hgb 7.6 L Hct 23.4 L MCV MCH MCHC RDW 16.5 H Plt Count Lymph % (Auto) Benzie % (Auto) Lymph # Benzie # Baso # Seg Neutrophils % Seg Neuts % (Manual) Lymphocytes % (Manual) Monocytes % (Manual) Eosinophils % (Manual) Basophils % (Manual) Nucleated RBC % Seg Neutrophils # Seg Neutrophils # Man Lymphocytes # (Manual) Monocytes # (Manual) Eosinophils # (Manual) Basophils # (Manual) PT INR Fibrinogen dRVVT Confirm Interp Factor V Activity POC ABG pH POC ABG pCO2 POC ABG pO2 ABG pO2 ABG HCO3 ABG Base Excess ABG Hemoglobin Oxyhemoglobin Sodium Potassium Chloride Carbon Dioxide BUN Creatinine Glucose POC Glucose 114 H 126 H Lactic Acid Calcium Ionized Calcium Phosphorus Magnesium Direct Bilirubin AST ALT Alkaline Phosphatase Lactate Dehydrogenase Troponin T C-Reactive Protein Total Protein Albumin Prealbumin Triglycerides Cholesterol LDL Cholesterol Direct HDL Cholesterol 25-OH Vitamin D Total PTH Intact Urine pH Urine WBC (Auto) Urine Creatinine Urine Total Protein Fluid Total Protein Vancomycin Trough Rheumatoid Factor Complement C4 Miscellaneous Test Crossmatch 11/28/16 11/28/16 11/28/16 04:45 05:33 05:44 WBC RBC Hgb Hct MCV MCH MCHC RDW Plt Count Lymph % (Auto) Benzie % (Auto) Lymph # Benzie # Baso # Seg Neutrophils % Seg Neuts % (Manual) Lymphocytes % (Manual) Monocytes % (Manual) Eosinophils % (Manual) Basophils % (Manual) Nucleated RBC % Seg Neutrophils # Seg Neutrophils # Man Lymphocytes # (Manual) Monocytes # (Manual) Eosinophils # (Manual) Basophils # (Manual) PT INR Fibrinogen dRVVT Confirm Interp Factor V Activity POC ABG pH POC ABG pCO2 POC ABG pO2 ABG pO2 99.3 H ABG HCO3 ABG Base Excess ABG Hemoglobin 8.3 L Oxyhemoglobin Sodium Potassium Chloride Carbon Dioxide BUN 63 H Creatinine 2.4 H Glucose 102 H POC Glucose 108 H Lactic Acid Calcium Ionized Calcium Phosphorus 1.80 L Magnesium Direct Bilirubin AST ALT Alkaline Phosphatase Lactate Dehydrogenase Troponin T C-Reactive Protein Total Protein Albumin Prealbumin Triglycerides Cholesterol LDL Cholesterol Direct HDL Cholesterol 25-OH Vitamin D Total PTH Intact Urine pH Urine WBC (Auto) Urine Creatinine Urine Total Protein Fluid Total Protein Vancomycin Trough Rheumatoid Factor Complement C4 Miscellaneous Test Crossmatch 10/11/0611/28/16 11/28/16 12:31 16:09 23:46 WBC RBC Hgb Hct MCV MCH MCHC RDW Plt Count Lymph % (Auto) Benzie % (Auto) Lymph # Benzie # Baso # Seg Neutrophils % Seg Neuts % (Manual) Lymphocytes % (Manual) Monocytes % (Manual) Eosinophils % (Manual) Basophils % (Manual) Nucleated RBC % Seg Neutrophils # Seg Neutrophils # Man Lymphocytes # (Manual) Monocytes # (Manual) Eosinophils # (Manual) Basophils # (Manual) PT INR Fibrinogen dRVVT Confirm Interp Factor V Activity POC ABG pH POC ABG pCO2 POC ABG pO2 ABG pO2 ABG HCO3 ABG Base Excess ABG Hemoglobin Oxyhemoglobin Sodium Potassium Chloride Carbon Dioxide BUN Creatinine Glucose POC Glucose 126 H 111 H 119 H Lactic Acid Calcium Ionized Calcium Phosphorus Magnesium Direct Bilirubin AST ALT Alkaline Phosphatase Lactate Dehydrogenase Troponin T C-Reactive Protein Total Protein Albumin Prealbumin Triglycerides Cholesterol LDL Cholesterol Direct HDL Cholesterol 25-OH Vitamin D Total PTH Intact Urine pH Urine WBC (Auto) Urine Creatinine Urine Total Protein Fluid Total Protein Vancomycin Trough Rheumatoid Factor Complement C4 Miscellaneous Test Crossmatch 11/29/16 11/29/16 11/29/16 03:33 04:52 05:10 WBC RBC Hgb Hct MCV MCH MCHC RDW Plt Count Lymph % (Auto) Benzie % (Auto) Lymph # Benzie # Baso # Seg Neutrophils % Seg Neuts % (Manual) Lymphocytes % (Manual) Monocytes % (Manual) Eosinophils % (Manual) Basophils % (Manual) Nucleated RBC % Seg Neutrophils # Seg Neutrophils # Man Lymphocytes # (Manual) Monocytes # (Manual) Eosinophils # (Manual) Basophils # (Manual) PT INR Fibrinogen dRVVT Confirm Interp Factor V Activity POC ABG pH POC ABG pCO2 POC ABG pO2 ABG pO2 ABG HCO3 ABG Base Excess ABG Hemoglobin 7.0 L Oxyhemoglobin 94.9 L Sodium Potassium Chloride Carbon Dioxide BUN 73 H Creatinine 2.7 H Glucose POC Glucose 108 H Lactic Acid Calcium Ionized Calcium Phosphorus Magnesium Direct Bilirubin AST ALT Alkaline Phosphatase Lactate Dehydrogenase Troponin T C-Reactive Protein Total Protein Albumin Prealbumin Triglycerides Cholesterol LDL Cholesterol Direct HDL Cholesterol 25-OH Vitamin D Total PTH Intact Urine pH Urine WBC (Auto) Urine Creatinine Urine Total Protein Fluid Total Protein Vancomycin Trough Rheumatoid Factor Complement C4 Miscellaneous Test Crossmatch 10/10/17 10/10/17 10/10/17 12:16 18:05 23:46 WBC RBC Hgb Hct MCV MCH MCHC RDW Plt Count Lymph % (Auto) Benzie % (Auto) Lymph # Benzie # Baso # Seg Neutrophils % Seg Neuts % (Manual) Lymphocytes % (Manual) Monocytes % (Manual) Eosinophils % (Manual) Basophils % (Manual) Nucleated RBC % Seg Neutrophils # Seg Neutrophils # Man Lymphocytes # (Manual) Monocytes # (Manual) Eosinophils # (Manual) Basophils # (Manual) PT INR Fibrinogen dRVVT Confirm Interp Factor V Activity POC ABG pH POC ABG pCO2 POC ABG pO2 ABG pO2 ABG HCO3 ABG Base Excess ABG Hemoglobin Oxyhemoglobin Sodium Potassium Chloride Carbon Dioxide BUN Creatinine Glucose POC Glucose 133 H 146 H 141 H Lactic Acid Calcium Ionized Calcium Phosphorus Magnesium Direct Bilirubin AST ALT Alkaline Phosphatase Lactate Dehydrogenase Troponin T C-Reactive Protein Total Protein Albumin Prealbumin Triglycerides Cholesterol LDL Cholesterol Direct HDL Cholesterol 25-OH Vitamin D Total PTH Intact Urine pH Urine WBC (Auto) Urine Creatinine Urine Total Protein Fluid Total Protein Vancomycin Trough Rheumatoid Factor Complement C4 Miscellaneous Test Crossmatch 11/30/16 11/30/16 11/30/16 04:17 04:17 04:32 WBC 12.0 H RBC 2.80 L Hgb 7.8 L Hct 23.6 L MCV MCH MCHC RDW 16.6 H Plt Count Lymph % (Auto) Benzie % (Auto) 11.3 H Lymph # Benzie # 1.4 H Baso # Seg Neutrophils % Seg Neuts % (Manual) Lymphocytes % (Manual) Monocytes % (Manual) Eosinophils % (Manual) Basophils % (Manual) Nucleated RBC % Seg Neutrophils # 8.2 H Seg Neutrophils # Man Lymphocytes # (Manual) Monocytes # (Manual) Eosinophils # (Manual) Basophils # (Manual) PT INR Fibrinogen dRVVT Confirm Interp Factor V Activity POC ABG pH POC ABG pCO2 POC ABG pO2 ABG pO2 ABG HCO3 ABG Base Excess ABG Hemoglobin Oxyhemoglobin Sodium 169 H* D Potassium 5.1 H Chloride 121.5 H Carbon Dioxide BUN 34 H Creatinine 1.3 H D Glucose 133 H POC Glucose 131 H Lactic Acid Calcium 10.3 H Ionized Calcium Phosphorus Magnesium Direct Bilirubin AST ALT Alkaline Phosphatase Lactate Dehydrogenase Troponin T C-Reactive Protein Total Protein Albumin Prealbumin Triglycerides Cholesterol LDL Cholesterol Direct HDL Cholesterol 25-OH Vitamin D Total PTH Intact Urine pH Urine WBC (Auto) Urine Creatinine Urine Total Protein Fluid Total Protein Vancomycin Trough Rheumatoid Factor Complement C4 Miscellaneous Test Crossmatch 11/30/16 11/30/16 11/30/16 05:45 11:10 17:26 WBC RBC Hgb Hct MCV MCH MCHC RDW Plt Count Lymph % (Auto) Benzie % (Auto) Lymph # Benzie # Baso # Seg Neutrophils % Seg Neuts % (Manual) Lymphocytes % (Manual) Monocytes % (Manual) Eosinophils % (Manual) Basophils % (Manual) Nucleated RBC % Seg Neutrophils # Seg Neutrophils # Man Lymphocytes # (Manual) Monocytes # (Manual) Eosinophils # (Manual) Basophils # (Manual) PT INR Fibrinogen dRVVT Confirm Interp Factor V Activity POC ABG pH POC ABG pCO2 POC ABG pO2 ABG pO2 ABG HCO3 ABG Base Excess ABG Hemoglobin Oxyhemoglobin Sodium Potassium Chloride Carbon Dioxide BUN 45 H Creatinine 1.6 H Glucose 131 H POC Glucose 146 H 134 H Lactic Acid Calcium Ionized Calcium Phosphorus Magnesium Direct Bilirubin AST ALT Alkaline Phosphatase Lactate Dehydrogenase Troponin T C-Reactive Protein Total Protein Albumin Prealbumin Triglycerides Cholesterol LDL Cholesterol Direct HDL Cholesterol 25-OH Vitamin D Total PTH Intact Urine pH Urine WBC (Auto) Urine Creatinine Urine Total Protein Fluid Total Protein Vancomycin Trough Rheumatoid Factor Complement C4 Miscellaneous Test Crossmatch 11/30/16 12/01/16 12/01/16 23:35 00:06 03:35 WBC RBC Hgb Hct MCV MCH MCHC RDW Plt Count Lymph % (Auto) Benzie % (Auto) Lymph # Benzie # Baso # Seg Neutrophils % Seg Neuts % (Manual) Lymphocytes % (Manual) Monocytes % (Manual) Eosinophils % (Manual) Basophils % (Manual) Nucleated RBC % Seg Neutrophils # Seg Neutrophils # Man Lymphocytes # (Manual) Monocytes # (Manual) Eosinophils # (Manual) Basophils # (Manual) PT INR Fibrinogen dRVVT Confirm Interp Factor V Activity POC ABG pH POC ABG pCO2 POC ABG pO2 ABG pO2 ABG HCO3 ABG Base Excess ABG Hemoglobin 6.9 L Oxyhemoglobin Sodium Potassium Chloride Carbon Dioxide BUN 58 H Creatinine 1.8 H Glucose 146 H POC Glucose 151 H Lactic Acid Calcium Ionized Calcium Phosphorus Magnesium Direct Bilirubin AST ALT Alkaline Phosphatase Lactate Dehydrogenase Troponin T C-Reactive Protein Total Protein Albumin Prealbumin Triglycerides Cholesterol LDL Cholesterol Direct HDL Cholesterol 25-OH Vitamin D Total PTH Intact Urine pH Urine WBC (Auto) Urine Creatinine Urine Total Protein Fluid Total Protein Vancomycin Trough Rheumatoid Factor Complement C4 Miscellaneous Test Crossmatch 12/01/16 12/01/16 12/01/16 03:35 05:47 11:52 WBC 12.3 H RBC 2.82 L Hgb 7.8 L Hct 23.7 L MCV MCH MCHC RDW 16.7 H Plt Count Lymph % (Auto) Benzie % (Auto) 9.8 H Lymph # Benzie # 1.2 H Baso # Seg Neutrophils % Seg Neuts % (Manual) Lymphocytes % (Manual) Monocytes % (Manual) Eosinophils % (Manual) Basophils % (Manual) Nucleated RBC % Seg Neutrophils # 8.4 H Seg Neutrophils # Man Lymphocytes # (Manual) Monocytes # (Manual) Eosinophils # (Manual) Basophils # (Manual) PT INR Fibrinogen dRVVT Confirm Interp Factor V Activity POC ABG pH POC ABG pCO2 POC ABG pO2 ABG pO2 ABG HCO3 ABG Base Excess ABG Hemoglobin Oxyhemoglobin Sodium Potassium Chloride Carbon Dioxide BUN Creatinine Glucose POC Glucose 152 H 152 H Lactic Acid Calcium Ionized Calcium Phosphorus Magnesium Direct Bilirubin AST ALT Alkaline Phosphatase Lactate Dehydrogenase Troponin T C-Reactive Protein Total Protein Albumin Prealbumin Triglycerides Cholesterol LDL Cholesterol Direct HDL Cholesterol 25-OH Vitamin D Total PTH Intact Urine pH Urine WBC (Auto) Urine Creatinine Urine Total Protein Fluid Total Protein Vancomycin Trough Rheumatoid Factor Complement C4 Miscellaneous Test Crossmatch 12/01/16 12/01/16 12/02/16 17:40 23:41 05:00 WBC RBC Hgb Hct MCV MCH MCHC RDW Plt Count Lymph % (Auto) Benzie % (Auto) Lymph # Benzie # Baso # Seg Neutrophils % Seg Neuts % (Manual) Lymphocytes % (Manual) Monocytes % (Manual) Eosinophils % (Manual) Basophils % (Manual) Nucleated RBC % Seg Neutrophils # Seg Neutrophils # Man Lymphocytes # (Manual) Monocytes # (Manual) Eosinophils # (Manual) Basophils # (Manual) PT INR Fibrinogen dRVVT Confirm Interp Factor V Activity POC ABG pH POC ABG pCO2 POC ABG pO2 ABG pO2 ABG HCO3 ABG Base Excess ABG Hemoglobin Oxyhemoglobin Sodium Potassium Chloride Carbon Dioxide BUN 45 H Creatinine Glucose 115 H POC Glucose 140 H 144 H Lactic Acid Calcium Ionized Calcium Phosphorus Magnesium Direct Bilirubin AST ALT Alkaline Phosphatase Lactate Dehydrogenase Troponin T C-Reactive Protein Total Protein Albumin Prealbumin Triglycerides Cholesterol LDL Cholesterol Direct HDL Cholesterol 25-OH Vitamin D Total PTH Intact Urine pH Urine WBC (Auto) Urine Creatinine Urine Total Protein Fluid Total Protein Vancomycin Trough Rheumatoid Factor Complement C4 Miscellaneous Test Crossmatch 12/02/16 12/02/16 12/02/16 05:31 11:20 17:38 WBC RBC Hgb Hct MCV MCH MCHC RDW Plt Count Lymph % (Auto) Benzie % (Auto) Lymph # Benzie # Baso # Seg Neutrophils % Seg Neuts % (Manual) Lymphocytes % (Manual) Monocytes % (Manual) Eosinophils % (Manual) Basophils % (Manual) Nucleated RBC % Seg Neutrophils # Seg Neutrophils # Man Lymphocytes # (Manual) Monocytes # (Manual) Eosinophils # (Manual) Basophils # (Manual) PT INR Fibrinogen dRVVT Confirm Interp Factor V Activity POC ABG pH POC ABG pCO2 POC ABG pO2 ABG pO2 ABG HCO3 ABG Base Excess ABG Hemoglobin Oxyhemoglobin Sodium Potassium Chloride Carbon Dioxide BUN Creatinine Glucose POC Glucose 136 H 177 H 139 H Lactic Acid Calcium Ionized Calcium Phosphorus Magnesium Direct Bilirubin AST ALT Alkaline Phosphatase Lactate Dehydrogenase Troponin T C-Reactive Protein Total Protein Albumin Prealbumin Triglycerides Cholesterol LDL Cholesterol Direct HDL Cholesterol 25-OH Vitamin D Total PTH Intact Urine pH Urine WBC (Auto) Urine Creatinine Urine Total Protein Fluid Total Protein Vancomycin Trough Rheumatoid Factor Complement C4 Miscellaneous Test Crossmatch 12/02/16 12/03/16 12/03/16 23:43 04:00 04:00 WBC 20.4 H RBC 2.74 L Hgb 7.4 L Hct 23.6 L MCV MCH 27 L MCHC RDW 17.1 H Plt Count Lymph % (Auto) Benzie % (Auto) Lymph # Benzie # Baso # Seg Neutrophils % Seg Neuts % (Manual) 31.0 L Lymphocytes % (Manual) Monocytes % (Manual) Eosinophils % (Manual) Basophils % (Manual) Nucleated RBC % Seg Neutrophils # Seg Neutrophils # Man Lymphocytes # (Manual) Monocytes # (Manual) Eosinophils # (Manual) Basophils # (Manual) PT INR Fibrinogen dRVVT Confirm Interp Factor V Activity POC ABG pH POC ABG pCO2 POC ABG pO2 ABG pO2 ABG HCO3 ABG Base Excess ABG Hemoglobin Oxyhemoglobin Sodium Potassium Chloride Carbon Dioxide BUN 61 H Creatinine 1.6 H Glucose 119 H POC Glucose 158 H Lactic Acid Calcium Ionized Calcium Phosphorus Magnesium Direct Bilirubin AST ALT Alkaline Phosphatase Lactate Dehydrogenase Troponin T C-Reactive Protein Total Protein Albumin Prealbumin Triglycerides Cholesterol LDL Cholesterol Direct HDL Cholesterol 25-OH Vitamin D Total PTH Intact Urine pH Urine WBC (Auto) Urine Creatinine Urine Total Protein Fluid Total Protein Vancomycin Trough Rheumatoid Factor Complement C4 Miscellaneous Test Crossmatch 12/03/16 12/03/16 12/03/16 05:02 12:11 18:16 WBC RBC Hgb Hct MCV MCH MCHC RDW Plt Count Lymph % (Auto) Benzie % (Auto) Lymph # Benzie # Baso # Seg Neutrophils % Seg Neuts % (Manual) Lymphocytes % (Manual) Monocytes % (Manual) Eosinophils % (Manual) Basophils % (Manual) Nucleated RBC % Seg Neutrophils # Seg Neutrophils # Man Lymphocytes # (Manual) Monocytes # (Manual) Eosinophils # (Manual) Basophils # (Manual) PT INR Fibrinogen dRVVT Confirm Interp Factor V Activity POC ABG pH POC ABG pCO2 POC ABG pO2 ABG pO2 ABG HCO3 ABG Base Excess ABG Hemoglobin Oxyhemoglobin Sodium Potassium Chloride Carbon Dioxide BUN Creatinine Glucose POC Glucose 146 H 157 H 124 H Lactic Acid Calcium Ionized Calcium Phosphorus Magnesium Direct Bilirubin AST ALT Alkaline Phosphatase Lactate Dehydrogenase Troponin T C-Reactive Protein Total Protein Albumin Prealbumin Triglycerides Cholesterol LDL Cholesterol Direct HDL Cholesterol 25-OH Vitamin D Total PTH Intact Urine pH Urine WBC (Auto) Urine Creatinine Urine Total Protein Fluid Total Protein Vancomycin Trough Rheumatoid Factor Complement C4 Miscellaneous Test Crossmatch 12/03/16 12/04/16 12/04/16 23:41 04:00 04:45 WBC RBC Hgb Hct MCV MCH MCHC RDW Plt Count Lymph % (Auto) Benzie % (Auto) Lymph # Benzie # Baso # Seg Neutrophils % Seg Neuts % (Manual) Lymphocytes % (Manual) Monocytes % (Manual) Eosinophils % (Manual) Basophils % (Manual) Nucleated RBC % Seg Neutrophils # Seg Neutrophils # Man Lymphocytes # (Manual) Monocytes # (Manual) Eosinophils # (Manual) Basophils # (Manual) PT INR Fibrinogen dRVVT Confirm Interp Factor V Activity POC ABG pH POC ABG pCO2 POC ABG pO2 ABG pO2 ABG HCO3 ABG Base Excess ABG Hemoglobin Oxyhemoglobin Sodium Potassium Chloride Carbon Dioxide BUN 76 H Creatinine 1.6 H Glucose POC Glucose 130 H 136 H Lactic Acid Calcium Ionized Calcium Phosphorus Magnesium Direct Bilirubin AST ALT Alkaline Phosphatase 155 H Lactate Dehydrogenase Troponin T C-Reactive Protein Total Protein 5.5 L Albumin 1.5 L Prealbumin Triglycerides Cholesterol LDL Cholesterol Direct HDL Cholesterol 25-OH Vitamin D Total PTH Intact Urine pH Urine WBC (Auto) Urine Creatinine Urine Total Protein Fluid Total Protein Vancomycin Trough Rheumatoid Factor Complement C4 Miscellaneous Test Crossmatch 12/04/16 12/04/16 12/05/16 12:08 17:23 00:10 WBC RBC Hgb Hct MCV MCH MCHC RDW Plt Count Lymph % (Auto) Benzie % (Auto) Lymph # Benzie # Baso # Seg Neutrophils % Seg Neuts % (Manual) Lymphocytes % (Manual) Monocytes % (Manual) Eosinophils % (Manual) Basophils % (Manual) Nucleated RBC % Seg Neutrophils # Seg Neutrophils # Man Lymphocytes # (Manual) Monocytes # (Manual) Eosinophils # (Manual) Basophils # (Manual) PT INR Fibrinogen dRVVT Confirm Interp Factor V Activity POC ABG pH POC ABG pCO2 POC ABG pO2 ABG pO2 ABG HCO3 ABG Base Excess ABG Hemoglobin Oxyhemoglobin Sodium Potassium Chloride Carbon Dioxide BUN Creatinine Glucose POC Glucose 114 H 129 H 124 H Lactic Acid Calcium Ionized Calcium Phosphorus Magnesium Direct Bilirubin AST ALT Alkaline Phosphatase Lactate Dehydrogenase Troponin T C-Reactive Protein Total Protein Albumin Prealbumin Triglycerides Cholesterol LDL Cholesterol Direct HDL Cholesterol 25-OH Vitamin D Total PTH Intact Urine pH Urine WBC (Auto) Urine Creatinine Urine Total Protein Fluid Total Protein Vancomycin Trough Rheumatoid Factor Complement C4 Miscellaneous Test Crossmatch 12/05/16 12/05/16 12/05/16 05:00 05:00 05:18 WBC RBC Hgb Hct MCV MCH MCHC RDW Plt Count Lymph % (Auto) Benzie % (Auto) Lymph # Benzie # Baso # Seg Neutrophils % Seg Neuts % (Manual) Lymphocytes % (Manual) Monocytes % (Manual) Eosinophils % (Manual) Basophils % (Manual) Nucleated RBC % Seg Neutrophils # Seg Neutrophils # Man Lymphocytes # (Manual) Monocytes # (Manual) Eosinophils # (Manual) Basophils # (Manual) PT INR Fibrinogen dRVVT Confirm Interp Factor V Activity POC ABG pH POC ABG pCO2 POC ABG pO2 ABG pO2 ABG HCO3 ABG Base Excess ABG Hemoglobin Oxyhemoglobin Sodium Potassium Chloride Carbon Dioxide 21 L BUN 85 H Creatinine 1.9 H Glucose 131 H POC Glucose 154 H Lactic Acid Calcium Ionized Calcium Phosphorus Magnesium Direct Bilirubin AST ALT Alkaline Phosphatase Lactate Dehydrogenase Troponin T C-Reactive Protein 19.30 H Total Protein Albumin Prealbumin Triglycerides Cholesterol LDL Cholesterol Direct HDL Cholesterol 25-OH Vitamin D Total PTH Intact Urine pH Urine WBC (Auto) Urine Creatinine Urine Total Protein Fluid Total Protein Vancomycin Trough Rheumatoid Factor Complement C4 Miscellaneous Test Crossmatch 12/05/16 12/05/16 12/05/16 11:43 17:46 23:25 WBC RBC Hgb Hct MCV MCH MCHC RDW Plt Count Lymph % (Auto) Benzie % (Auto) Lymph # Benzie # Baso # Seg Neutrophils % Seg Neuts % (Manual) Lymphocytes % (Manual) Monocytes % (Manual) Eosinophils % (Manual) Basophils % (Manual) Nucleated RBC % Seg Neutrophils # Seg Neutrophils # Man Lymphocytes # (Manual) Monocytes # (Manual) Eosinophils # (Manual) Basophils # (Manual) PT INR Fibrinogen dRVVT Confirm Interp Factor V Activity POC ABG pH POC ABG pCO2 POC ABG pO2 ABG pO2 ABG HCO3 ABG Base Excess ABG Hemoglobin Oxyhemoglobin Sodium Potassium Chloride Carbon Dioxide BUN Creatinine Glucose POC Glucose 117 H 113 H 111 H Lactic Acid Calcium Ionized Calcium Phosphorus Magnesium Direct Bilirubin AST ALT Alkaline Phosphatase Lactate Dehydrogenase Troponin T C-Reactive Protein Total Protein Albumin Prealbumin Triglycerides Cholesterol LDL Cholesterol Direct HDL Cholesterol 25-OH Vitamin D Total PTH Intact Urine pH Urine WBC (Auto) Urine Creatinine Urine Total Protein Fluid Total Protein Vancomycin Trough Rheumatoid Factor Complement C4 Miscellaneous Test Crossmatch 12/05/16 12/06/16 12/06/16 Unknown 04:58 06:00 WBC RBC Hgb Hct MCV MCH MCHC RDW Plt Count Lymph % (Auto) Benzie % (Auto) Lymph # Benzie # Baso # Seg Neutrophils % Seg Neuts % (Manual) Lymphocytes % (Manual) Monocytes % (Manual) Eosinophils % (Manual) Basophils % (Manual) Nucleated RBC % Seg Neutrophils # Seg Neutrophils # Man Lymphocytes # (Manual) Monocytes # (Manual) Eosinophils # (Manual) Basophils # (Manual) PT INR Fibrinogen dRVVT Confirm Interp Factor V Activity POC ABG pH POC ABG pCO2 POC ABG pO2 ABG pO2 75.2 L ABG HCO3 ABG Base Excess -3.4 L ABG Hemoglobin 7.4 L Oxyhemoglobin 94.5 L Sodium Potassium Chloride Carbon Dioxide 20 L BUN 99 H Creatinine 2.1 H Glucose 126 H POC Glucose 145 H Lactic Acid Calcium Ionized Calcium Phosphorus 4.80 H Magnesium Direct Bilirubin AST ALT Alkaline Phosphatase Lactate Dehydrogenase Troponin T C-Reactive Protein Total Protein Albumin Prealbumin Triglycerides Cholesterol LDL Cholesterol Direct HDL Cholesterol 25-OH Vitamin D Total PTH Intact Urine pH Urine WBC (Auto) Urine Creatinine Urine Total Protein Fluid Total Protein Vancomycin Trough Rheumatoid Factor Complement C4 Miscellaneous Test Crossmatch 12/06/16 12/06/16 12/06/16 06:46 11:54 17:55 WBC RBC Hgb 8.3 L Hct 26.4 L MCV MCH MCHC RDW Plt Count Lymph % (Auto) Benzie % (Auto) Lymph # Benzie # Baso # Seg Neutrophils % Seg Neuts % (Manual) Lymphocytes % (Manual) Monocytes % (Manual) Eosinophils % (Manual) Basophils % (Manual) Nucleated RBC % Seg Neutrophils # Seg Neutrophils # Man Lymphocytes # (Manual) Monocytes # (Manual) Eosinophils # (Manual) Basophils # (Manual) PT INR Fibrinogen dRVVT Confirm Interp Factor V Activity POC ABG pH POC ABG pCO2 POC ABG pO2 ABG pO2 ABG HCO3 ABG Base Excess ABG Hemoglobin Oxyhemoglobin Sodium Potassium Chloride Carbon Dioxide BUN Creatinine Glucose POC Glucose 126 H 157 H Lactic Acid Calcium Ionized Calcium Phosphorus Magnesium Direct Bilirubin AST ALT Alkaline Phosphatase Lactate Dehydrogenase Troponin T C-Reactive Protein Total Protein Albumin Prealbumin Triglycerides Cholesterol LDL Cholesterol Direct HDL Cholesterol 25-OH Vitamin D Total PTH Intact Urine pH Urine WBC (Auto) Urine Creatinine Urine Total Protein Fluid Total Protein Vancomycin Trough Rheumatoid Factor Complement C4 Miscellaneous Test Crossmatch 12/06/16 12/07/16 12/07/16 23:59 05:34 06:30 WBC RBC Hgb Hct MCV MCH MCHC RDW Plt Count Lymph % (Auto) Benzie % (Auto) Lymph # Benzie # Baso # Seg Neutrophils % Seg Neuts % (Manual) Lymphocytes % (Manual) Monocytes % (Manual) Eosinophils % (Manual) Basophils % (Manual) Nucleated RBC % Seg Neutrophils # Seg Neutrophils # Man Lymphocytes # (Manual) Monocytes # (Manual) Eosinophils # (Manual) Basophils # (Manual) PT INR Fibrinogen dRVVT Confirm Interp Factor V Activity POC ABG pH POC ABG pCO2 POC ABG pO2 ABG pO2 ABG HCO3 ABG Base Excess ABG Hemoglobin Oxyhemoglobin Sodium Potassium Chloride Carbon Dioxide BUN 67 H Creatinine 1.4 H Glucose 126 H POC Glucose 129 H 129 H Lactic Acid Calcium Ionized Calcium Phosphorus Magnesium Direct Bilirubin AST ALT Alkaline Phosphatase Lactate Dehydrogenase Troponin T C-Reactive Protein Total Protein Albumin Prealbumin Triglycerides Cholesterol LDL Cholesterol Direct HDL Cholesterol 25-OH Vitamin D Total PTH Intact Urine pH Urine WBC (Auto) Urine Creatinine Urine Total Protein Fluid Total Protein Vancomycin Trough Rheumatoid Factor Complement C4 Miscellaneous Test Crossmatch 12/07/16 12/07/16 12/07/16 06:30 08:00 09:45 WBC 18.8 H RBC 2.52 L Hgb 6.9 L 6.8 L Hct 21.2 L 21.1 L MCV MCH 27 L MCHC RDW 18.0 H Plt Count Lymph % (Auto) Benzie % (Auto) 9.9 H Lymph # Benzie # 1.9 H Baso # Seg Neutrophils % 71.8 H Seg Neuts % (Manual) Lymphocytes % (Manual) Monocytes % (Manual) Eosinophils % (Manual) Basophils % (Manual) Nucleated RBC % Seg Neutrophils # 13.5 H Seg Neutrophils # Man Lymphocytes # (Manual) Monocytes # (Manual) Eosinophils # (Manual) Basophils # (Manual) PT INR Fibrinogen dRVVT Confirm Interp Factor V Activity POC ABG pH POC ABG pCO2 POC ABG pO2 ABG pO2 ABG HCO3 ABG Base Excess ABG Hemoglobin Oxyhemoglobin Sodium Potassium Chloride Carbon Dioxide BUN Creatinine Glucose POC Glucose Lactic Acid Calcium Ionized Calcium Phosphorus Magnesium Direct Bilirubin AST ALT Alkaline Phosphatase Lactate Dehydrogenase Troponin T C-Reactive Protein Total Protein Albumin Prealbumin Triglycerides Cholesterol LDL Cholesterol Direct HDL Cholesterol 25-OH Vitamin D Total PTH Intact Urine pH Urine WBC (Auto) Urine Creatinine Urine Total Protein Fluid Total Protein Vancomycin Trough Rheumatoid Factor Complement C4 Miscellaneous Test Crossmatch See Detail 12/07/16 12/07/16 12/07/16 11:44 18:19 23:59 WBC RBC Hgb Hct MCV MCH MCHC RDW Plt Count Lymph % (Auto) Benzie % (Auto) Lymph # Benzie # Baso # Seg Neutrophils % Seg Neuts % (Manual) Lymphocytes % (Manual) Monocytes % (Manual) Eosinophils % (Manual) Basophils % (Manual) Nucleated RBC % Seg Neutrophils # Seg Neutrophils # Man Lymphocytes # (Manual) Monocytes # (Manual) Eosinophils # (Manual) Basophils # (Manual) PT INR Fibrinogen dRVVT Confirm Interp Factor V Activity POC ABG pH POC ABG pCO2 POC ABG pO2 ABG pO2 ABG HCO3 ABG Base Excess ABG Hemoglobin Oxyhemoglobin Sodium Potassium Chloride Carbon Dioxide BUN Creatinine Glucose POC Glucose 137 H 138 H 133 H Lactic Acid Calcium Ionized Calcium Phosphorus Magnesium Direct Bilirubin AST ALT Alkaline Phosphatase Lactate Dehydrogenase Troponin T C-Reactive Protein Total Protein Albumin Prealbumin Triglycerides Cholesterol LDL Cholesterol Direct HDL Cholesterol 25-OH Vitamin D Total PTH Intact Urine pH Urine WBC (Auto) Urine Creatinine Urine Total Protein Fluid Total Protein Vancomycin Trough Rheumatoid Factor Complement C4 Miscellaneous Test Crossmatch 12/08/16 12/08/16 12/08/16 05:25 05:30 05:30 WBC 23.8 H RBC 2.88 L Hgb 8.1 L Hct 24.3 L MCV MCH MCHC RDW 16.7 H Plt Count Lymph % (Auto) Benzie % (Auto) Lymph # Benzie # Baso # Seg Neutrophils % Seg Neuts % (Manual) 76.0 H Lymphocytes % (Manual) 9.0 L Monocytes % (Manual) 9.0 H Eosinophils % (Manual) Basophils % (Manual) Nucleated RBC % Seg Neutrophils # Seg Neutrophils # Man 18.1 H Lymphocytes # (Manual) Monocytes # (Manual) 2.1 H Eosinophils # (Manual) Basophils # (Manual) PT INR Fibrinogen dRVVT Confirm Interp Factor V Activity POC ABG pH POC ABG pCO2 POC ABG pO2 ABG pO2 ABG HCO3 ABG Base Excess ABG Hemoglobin Oxyhemoglobin Sodium Potassium Chloride Carbon Dioxide 21 L BUN 76 H Creatinine 1.6 H Glucose 133 H POC Glucose 177 H Lactic Acid Calcium Ionized Calcium Phosphorus Magnesium Direct Bilirubin AST ALT Alkaline Phosphatase Lactate Dehydrogenase Troponin T C-Reactive Protein Total Protein Albumin Prealbumin Triglycerides Cholesterol LDL Cholesterol Direct HDL Cholesterol 25-OH Vitamin D Total PTH Intact Urine pH Urine WBC (Auto) Urine Creatinine Urine Total Protein Fluid Total Protein Vancomycin Trough Rheumatoid Factor Complement C4 Miscellaneous Test Crossmatch 12/08/16 12/08/16 12/09/16 11:45 18:00 00:00 WBC RBC Hgb Hct MCV MCH MCHC RDW Plt Count Lymph % (Auto) Benzie % (Auto) Lymph # Benzie # Baso # Seg Neutrophils % Seg Neuts % (Manual) Lymphocytes % (Manual) Monocytes % (Manual) Eosinophils % (Manual) Basophils % (Manual) Nucleated RBC % Seg Neutrophils # Seg Neutrophils # Man Lymphocytes # (Manual) Monocytes # (Manual) Eosinophils # (Manual) Basophils # (Manual) PT INR Fibrinogen dRVVT Confirm Interp Factor V Activity POC ABG pH POC ABG pCO2 POC ABG pO2 ABG pO2 ABG HCO3 ABG Base Excess ABG Hemoglobin Oxyhemoglobin Sodium Potassium Chloride Carbon Dioxide BUN Creatinine Glucose POC Glucose 163 H 123 H 137 H Lactic Acid Calcium Ionized Calcium Phosphorus Magnesium Direct Bilirubin AST ALT Alkaline Phosphatase Lactate Dehydrogenase Troponin T C-Reactive Protein Total Protein Albumin Prealbumin Triglycerides Cholesterol LDL Cholesterol Direct HDL Cholesterol 25-OH Vitamin D Total PTH Intact Urine pH Urine WBC (Auto) Urine Creatinine Urine Total Protein Fluid Total Protein Vancomycin Trough Rheumatoid Factor Complement C4 Miscellaneous Test Crossmatch 12/09/16 12/09/16 12/09/16 05:34 06:00 06:00 WBC 15.5 H RBC 2.87 L Hgb 8.0 L Hct 24.2 L MCV MCH MCHC RDW 17.2 H Plt Count Lymph % (Auto) Benzie % (Auto) 11.6 H Lymph # Benzie # 1.8 H Baso # Seg Neutrophils % 70.8 H Seg Neuts % (Manual) Lymphocytes % (Manual) Monocytes % (Manual) Eosinophils % (Manual) Basophils % (Manual) Nucleated RBC % Seg Neutrophils # 11.0 H Seg Neutrophils # Man Lymphocytes # (Manual) Monocytes # (Manual) Eosinophils # (Manual) Basophils # (Manual) PT INR Fibrinogen dRVVT Confirm Interp Factor V Activity POC ABG pH POC ABG pCO2 POC ABG pO2 ABG pO2 ABG HCO3 ABG Base Excess ABG Hemoglobin Oxyhemoglobin Sodium Potassium Chloride Carbon Dioxide BUN 51 H Creatinine Glucose 117 H POC Glucose 136 H Lactic Acid Calcium Ionized Calcium Phosphorus Magnesium Direct Bilirubin AST ALT Alkaline Phosphatase Lactate Dehydrogenase Troponin T C-Reactive Protein Total Protein Albumin Prealbumin Triglycerides Cholesterol LDL Cholesterol Direct HDL Cholesterol 25-OH Vitamin D Total PTH Intact Urine pH Urine WBC (Auto) Urine Creatinine Urine Total Protein Fluid Total Protein Vancomycin Trough Rheumatoid Factor Complement C4 Miscellaneous Test Crossmatch 12/09/16 12/09/16 12/09/16 12:29 17:52 23:10 WBC RBC Hgb Hct MCV MCH MCHC RDW Plt Count Lymph % (Auto) Benzie % (Auto) Lymph # Benzie # Baso # Seg Neutrophils % Seg Neuts % (Manual) Lymphocytes % (Manual) Monocytes % (Manual) Eosinophils % (Manual) Basophils % (Manual) Nucleated RBC % Seg Neutrophils # Seg Neutrophils # Man Lymphocytes # (Manual) Monocytes # (Manual) Eosinophils # (Manual) Basophils # (Manual) PT INR Fibrinogen dRVVT Confirm Interp Factor V Activity POC ABG pH POC ABG pCO2 POC ABG pO2 ABG pO2 ABG HCO3 ABG Base Excess ABG Hemoglobin Oxyhemoglobin Sodium Potassium Chloride Carbon Dioxide BUN Creatinine Glucose POC Glucose 139 H 140 H 129 H Lactic Acid Calcium Ionized Calcium Phosphorus Magnesium Direct Bilirubin AST ALT Alkaline Phosphatase Lactate Dehydrogenase Troponin T C-Reactive Protein Total Protein Albumin Prealbumin Triglycerides Cholesterol LDL Cholesterol Direct HDL Cholesterol 25-OH Vitamin D Total PTH Intact Urine pH Urine WBC (Auto) Urine Creatinine Urine Total Protein Fluid Total Protein Vancomycin Trough Rheumatoid Factor Complement C4 Miscellaneous Test Crossmatch 12/10/16 12/10/16 12/10/16 05:00 05:00 06:54 WBC 15.7 H RBC 2.87 L Hgb 8.2 L Hct 24.4 L MCV MCH MCHC RDW 17.2 H Plt Count Lymph % (Auto) Benzie % (Auto) 8.3 H Lymph # Benzie # 1.3 H Baso # Seg Neutrophils % 72.8 H Seg Neuts % (Manual) Lymphocytes % (Manual) Monocytes % (Manual) Eosinophils % (Manual) Basophils % (Manual) Nucleated RBC % Seg Neutrophils # 11.4 H Seg Neutrophils # Man Lymphocytes # (Manual) Monocytes # (Manual) Eosinophils # (Manual) Basophils # (Manual) PT INR Fibrinogen dRVVT Confirm Interp Factor V Activity POC ABG pH POC ABG pCO2 POC ABG pO2 ABG pO2 ABG HCO3 ABG Base Excess ABG Hemoglobin Oxyhemoglobin Sodium Potassium Chloride Carbon Dioxide BUN 64 H Creatinine 1.4 H Glucose 134 H POC Glucose 154 H Lactic Acid Calcium Ionized Calcium Phosphorus Magnesium Direct Bilirubin AST ALT Alkaline Phosphatase Lactate Dehydrogenase Troponin T C-Reactive Protein Total Protein Albumin Prealbumin Triglycerides Cholesterol LDL Cholesterol Direct HDL Cholesterol 25-OH Vitamin D Total PTH Intact Urine pH Urine WBC (Auto) Urine Creatinine Urine Total Protein Fluid Total Protein Vancomycin Trough Rheumatoid Factor Complement C4 Miscellaneous Test Crossmatch 12/10/16 12/10/16 12/10/16 11:58 17:29 23:52 WBC RBC Hgb Hct MCV MCH MCHC RDW Plt Count Lymph % (Auto) Benzie % (Auto) Lymph # Benzie # Baso # Seg Neutrophils % Seg Neuts % (Manual) Lymphocytes % (Manual) Monocytes % (Manual) Eosinophils % (Manual) Basophils % (Manual) Nucleated RBC % Seg Neutrophils # Seg Neutrophils # Man Lymphocytes # (Manual) Monocytes # (Manual) Eosinophils # (Manual) Basophils # (Manual) PT INR Fibrinogen dRVVT Confirm Interp Factor V Activity POC ABG pH POC ABG pCO2 POC ABG pO2 ABG pO2 ABG HCO3 ABG Base Excess ABG Hemoglobin Oxyhemoglobin Sodium Potassium Chloride Carbon Dioxide BUN Creatinine Glucose POC Glucose 144 H 163 H 125 H Lactic Acid Calcium Ionized Calcium Phosphorus Magnesium Direct Bilirubin AST ALT Alkaline Phosphatase Lactate Dehydrogenase Troponin T C-Reactive Protein Total Protein Albumin Prealbumin Triglycerides Cholesterol LDL Cholesterol Direct HDL Cholesterol 25-OH Vitamin D Total PTH Intact Urine pH Urine WBC (Auto) Urine Creatinine Urine Total Protein Fluid Total Protein Vancomycin Trough Rheumatoid Factor Complement C4 Miscellaneous Test Crossmatch 12/11/16 12/11/16 12/11/16 05:38 06:30 06:30 WBC 14.4 H RBC 2.76 L Hgb 7.7 L Hct 23.4 L MCV MCH MCHC RDW 17.2 H Plt Count Lymph % (Auto) Benzie % (Auto) 8.8 H Lymph # Benzie # 1.3 H Baso # Seg Neutrophils % 72.5 H Seg Neuts % (Manual) Lymphocytes % (Manual) Monocytes % (Manual) Eosinophils % (Manual) Basophils % (Manual) Nucleated RBC % Seg Neutrophils # 10.5 H Seg Neutrophils # Man Lymphocytes # (Manual) Monocytes # (Manual) Eosinophils # (Manual) Basophils # (Manual) PT INR Fibrinogen dRVVT Confirm Interp Factor V Activity POC ABG pH POC ABG pCO2 POC ABG pO2 ABG pO2 ABG HCO3 ABG Base Excess ABG Hemoglobin Oxyhemoglobin Sodium Potassium Chloride Carbon Dioxide BUN 43 H Creatinine Glucose 124 H POC Glucose 141 H Lactic Acid Calcium 8.3 L Ionized Calcium Phosphorus Magnesium 1.60 L Direct Bilirubin AST ALT Alkaline Phosphatase Lactate Dehydrogenase Troponin T C-Reactive Protein Total Protein Albumin Prealbumin Triglycerides Cholesterol LDL Cholesterol Direct HDL Cholesterol 25-OH Vitamin D Total PTH Intact Urine pH Urine WBC (Auto) Urine Creatinine Urine Total Protein Fluid Total Protein Vancomycin Trough Rheumatoid Factor Complement C4 Miscellaneous Test Crossmatch 12/11/16 12/11/16 12/11/16 11:15 17:59 23:48 WBC RBC Hgb Hct MCV MCH MCHC RDW Plt Count Lymph % (Auto) Benzie % (Auto) Lymph # Benzie # Baso # Seg Neutrophils % Seg Neuts % (Manual) Lymphocytes % (Manual) Monocytes % (Manual) Eosinophils % (Manual) Basophils % (Manual) Nucleated RBC % Seg Neutrophils # Seg Neutrophils # Man Lymphocytes # (Manual) Monocytes # (Manual) Eosinophils # (Manual) Basophils # (Manual) PT INR Fibrinogen dRVVT Confirm Interp Factor V Activity POC ABG pH POC ABG pCO2 POC ABG pO2 ABG pO2 ABG HCO3 ABG Base Excess ABG Hemoglobin Oxyhemoglobin Sodium Potassium Chloride Carbon Dioxide BUN Creatinine Glucose POC Glucose 188 H 106 H 119 H Lactic Acid Calcium Ionized Calcium Phosphorus Magnesium Direct Bilirubin AST ALT Alkaline Phosphatase Lactate Dehydrogenase Troponin T C-Reactive Protein Total Protein Albumin Prealbumin Triglycerides Cholesterol LDL Cholesterol Direct HDL Cholesterol 25-OH Vitamin D Total PTH Intact Urine pH Urine WBC (Auto) Urine Creatinine Urine Total Protein Fluid Total Protein Vancomycin Trough Rheumatoid Factor Complement C4 Miscellaneous Test Crossmatch 12/12/16 12/12/16 12/12/16 05:00 06:01 12:20 WBC 16.7 H RBC 2.87 L Hgb 8.0 L Hct 24.2 L MCV MCH MCHC RDW 17.6 H Plt Count Lymph % (Auto) Benzie % (Auto) Lymph # Benzie # 1.2 H Baso # Seg Neutrophils % 75.3 H Seg Neuts % (Manual) Lymphocytes % (Manual) Monocytes % (Manual) Eosinophils % (Manual) Basophils % (Manual) Nucleated RBC % Seg Neutrophils # 12.6 H Seg Neutrophils # Man Lymphocytes # (Manual) Monocytes # (Manual) Eosinophils # (Manual) Basophils # (Manual) PT INR Fibrinogen dRVVT Confirm Interp Factor V Activity POC ABG pH POC ABG pCO2 POC ABG pO2 ABG pO2 ABG HCO3 ABG Base Excess ABG Hemoglobin Oxyhemoglobin Sodium Potassium Chloride Carbon Dioxide BUN Creatinine Glucose POC Glucose 134 H 149 H Lactic Acid Calcium Ionized Calcium Phosphorus Magnesium Direct Bilirubin AST ALT Alkaline Phosphatase Lactate Dehydrogenase Troponin T C-Reactive Protein Total Protein Albumin Prealbumin Triglycerides Cholesterol LDL Cholesterol Direct HDL Cholesterol 25-OH Vitamin D Total PTH Intact Urine pH Urine WBC (Auto) Urine Creatinine Urine Total Protein Fluid Total Protein Vancomycin Trough Rheumatoid Factor Complement C4 Miscellaneous Test Crossmatch 12/12/16 12/12/16 12/12/16 17:38 23:01 Unknown WBC RBC Hgb Hct MCV MCH MCHC RDW Plt Count Lymph % (Auto) Benzie % (Auto) Lymph # Benzie # Baso # Seg Neutrophils % Seg Neuts % (Manual) Lymphocytes % (Manual) Monocytes % (Manual) Eosinophils % (Manual) Basophils % (Manual) Nucleated RBC % Seg Neutrophils # Seg Neutrophils # Man Lymphocytes # (Manual) Monocytes # (Manual) Eosinophils # (Manual) Basophils # (Manual) PT INR Fibrinogen dRVVT Confirm Interp Factor V Activity POC ABG pH POC ABG pCO2 POC ABG pO2 ABG pO2 ABG HCO3 ABG Base Excess ABG Hemoglobin Oxyhemoglobin Sodium Potassium Chloride Carbon Dioxide BUN 60 H Creatinine 1.3 H Glucose 126 H POC Glucose 127 H 144 H Lactic Acid Calcium Ionized Calcium Phosphorus Magnesium Direct Bilirubin AST ALT Alkaline Phosphatase Lactate Dehydrogenase Troponin T C-Reactive Protein Total Protein Albumin Prealbumin Triglycerides Cholesterol LDL Cholesterol Direct HDL Cholesterol 25-OH Vitamin D Total PTH Intact Urine pH Urine WBC (Auto) Urine Creatinine Urine Total Protein Fluid Total Protein Vancomycin Trough Rheumatoid Factor Complement C4 Miscellaneous Test Crossmatch 12/13/16 12/13/16 12/13/16 04:00 04:00 05:19 WBC 18.7 H RBC 2.89 L Hgb 8.3 L Hct 24.6 L MCV MCH MCHC RDW 17.5 H Plt Count Lymph % (Auto) Benzie % (Auto) Lymph # Benzie # 1.3 H Baso # Seg Neutrophils % 71.5 H Seg Neuts % (Manual) Lymphocytes % (Manual) Monocytes % (Manual) Eosinophils % (Manual) Basophils % (Manual) Nucleated RBC % Seg Neutrophils # 13.4 H Seg Neutrophils # Man Lymphocytes # (Manual) Monocytes # (Manual) Eosinophils # (Manual) Basophils # (Manual) PT INR Fibrinogen dRVVT Confirm Interp Factor V Activity POC ABG pH POC ABG pCO2 POC ABG pO2 ABG pO2 ABG HCO3 ABG Base Excess ABG Hemoglobin Oxyhemoglobin Sodium Potassium Chloride Carbon Dioxide BUN 73 H Creatinine 1.5 H Glucose 141 H POC Glucose 171 H Lactic Acid Calcium Ionized Calcium Phosphorus Magnesium Direct Bilirubin AST ALT Alkaline Phosphatase Lactate Dehydrogenase Troponin T C-Reactive Protein Total Protein Albumin Prealbumin Triglycerides Cholesterol LDL Cholesterol Direct HDL Cholesterol 25-OH Vitamin D Total PTH Intact Urine pH Urine WBC (Auto) Urine Creatinine Urine Total Protein Fluid Total Protein Vancomycin Trough Rheumatoid Factor Complement C4 Miscellaneous Test Crossmatch 12/13/16 12/13/16 12/14/16 12:28 16:48 00:01 WBC RBC Hgb Hct MCV MCH MCHC RDW Plt Count Lymph % (Auto) Benzie % (Auto) Lymph # Benzie # Baso # Seg Neutrophils % Seg Neuts % (Manual) Lymphocytes % (Manual) Monocytes % (Manual) Eosinophils % (Manual) Basophils % (Manual) Nucleated RBC % Seg Neutrophils # Seg Neutrophils # Man Lymphocytes # (Manual) Monocytes # (Manual) Eosinophils # (Manual) Basophils # (Manual) PT INR Fibrinogen dRVVT Confirm Interp Factor V Activity POC ABG pH POC ABG pCO2 POC ABG pO2 ABG pO2 ABG HCO3 ABG Base Excess ABG Hemoglobin Oxyhemoglobin Sodium Potassium Chloride Carbon Dioxide BUN Creatinine Glucose POC Glucose 206 H 173 H 139 H Lactic Acid Calcium Ionized Calcium Phosphorus Magnesium Direct Bilirubin AST ALT Alkaline Phosphatase Lactate Dehydrogenase Troponin T C-Reactive Protein Total Protein Albumin Prealbumin Triglycerides Cholesterol LDL Cholesterol Direct HDL Cholesterol 25-OH Vitamin D Total PTH Intact Urine pH Urine WBC (Auto) Urine Creatinine Urine Total Protein Fluid Total Protein Vancomycin Trough Rheumatoid Factor Complement C4 Miscellaneous Test Crossmatch 12/14/16 12/14/16 12/14/16 05:16 06:10 11:17 WBC RBC Hgb Hct MCV MCH MCHC RDW Plt Count Lymph % (Auto) Benzie % (Auto) Lymph # Benzie # Baso # Seg Neutrophils % Seg Neuts % (Manual) Lymphocytes % (Manual) Monocytes % (Manual) Eosinophils % (Manual) Basophils % (Manual) Nucleated RBC % Seg Neutrophils # Seg Neutrophils # Man Lymphocytes # (Manual) Monocytes # (Manual) Eosinophils # (Manual) Basophils # (Manual) PT INR Fibrinogen dRVVT Confirm Interp Factor V Activity POC ABG pH POC ABG pCO2 POC ABG pO2 ABG pO2 ABG HCO3 ABG Base Excess ABG Hemoglobin Oxyhemoglobin Sodium Potassium Chloride Carbon Dioxide BUN 57 H Creatinine 1.4 H Glucose 135 H POC Glucose 158 H 137 H Lactic Acid Calcium Ionized Calcium Phosphorus Magnesium Direct Bilirubin AST ALT Alkaline Phosphatase Lactate Dehydrogenase Troponin T C-Reactive Protein Total Protein Albumin Prealbumin Triglycerides Cholesterol LDL Cholesterol Direct HDL Cholesterol 25-OH Vitamin D Total PTH Intact Urine pH Urine WBC (Auto) Urine Creatinine Urine Total Protein Fluid Total Protein Vancomycin Trough Rheumatoid Factor Complement C4 Miscellaneous Test Crossmatch 12/14/16 12/14/16 12/15/16 17:52 23:27 04:00 WBC RBC Hgb Hct MCV MCH MCHC RDW Plt Count Lymph % (Auto) Benzie % (Auto) Lymph # Benzie # Baso # Seg Neutrophils % Seg Neuts % (Manual) Lymphocytes % (Manual) Monocytes % (Manual) Eosinophils % (Manual) Basophils % (Manual) Nucleated RBC % Seg Neutrophils # Seg Neutrophils # Man Lymphocytes # (Manual) Monocytes # (Manual) Eosinophils # (Manual) Basophils # (Manual) PT INR Fibrinogen dRVVT Confirm Interp Factor V Activity POC ABG pH POC ABG pCO2 POC ABG pO2 ABG pO2 ABG HCO3 ABG Base Excess ABG Hemoglobin Oxyhemoglobin Sodium Potassium Chloride 97.9 L Carbon Dioxide BUN 75 H Creatinine 1.6 H Glucose 122 H POC Glucose 149 H 163 H Lactic Acid Calcium Ionized Calcium Phosphorus 5.20 H Magnesium Direct Bilirubin AST ALT Alkaline Phosphatase Lactate Dehydrogenase Troponin T C-Reactive Protein Total Protein Albumin Prealbumin Triglycerides Cholesterol LDL Cholesterol Direct HDL Cholesterol 25-OH Vitamin D Total PTH Intact Urine pH Urine WBC (Auto) Urine Creatinine Urine Total Protein Fluid Total Protein Vancomycin Trough Rheumatoid Factor Complement C4 Miscellaneous Test Crossmatch 12/15/16 12/15/16 12/15/16 05:50 11:24 17:01 WBC RBC Hgb Hct MCV MCH MCHC RDW Plt Count Lymph % (Auto) Benzie % (Auto) Lymph # Benzie # Baso # Seg Neutrophils % Seg Neuts % (Manual) Lymphocytes % (Manual) Monocytes % (Manual) Eosinophils % (Manual) Basophils % (Manual) Nucleated RBC % Seg Neutrophils # Seg Neutrophils # Man Lymphocytes # (Manual) Monocytes # (Manual) Eosinophils # (Manual) Basophils # (Manual) PT INR Fibrinogen dRVVT Confirm Interp Factor V Activity POC ABG pH POC ABG pCO2 POC ABG pO2 ABG pO2 ABG HCO3 ABG Base Excess ABG Hemoglobin Oxyhemoglobin Sodium Potassium Chloride Carbon Dioxide BUN Creatinine Glucose POC Glucose 150 H 146 H 167 H Lactic Acid Calcium Ionized Calcium Phosphorus Magnesium Direct Bilirubin AST ALT Alkaline Phosphatase Lactate Dehydrogenase Troponin T C-Reactive Protein Total Protein Albumin Prealbumin Triglycerides Cholesterol LDL Cholesterol Direct HDL Cholesterol 25-OH Vitamin D Total PTH Intact Urine pH Urine WBC (Auto) Urine Creatinine Urine Total Protein Fluid Total Protein Vancomycin Trough Rheumatoid Factor Complement C4 Miscellaneous Test Crossmatch 12/15/16 12/16/16 12/16/16 23:34 05:25 11:24 WBC RBC Hgb Hct MCV MCH MCHC RDW Plt Count Lymph % (Auto) Benzie % (Auto) Lymph # Benzie # Baso # Seg Neutrophils % Seg Neuts % (Manual) Lymphocytes % (Manual) Monocytes % (Manual) Eosinophils % (Manual) Basophils % (Manual) Nucleated RBC % Seg Neutrophils # Seg Neutrophils # Man Lymphocytes # (Manual) Monocytes # (Manual) Eosinophils # (Manual) Basophils # (Manual) PT INR Fibrinogen dRVVT Confirm Interp Factor V Activity POC ABG pH POC ABG pCO2 POC ABG pO2 ABG pO2 ABG HCO3 ABG Base Excess ABG Hemoglobin Oxyhemoglobin Sodium Potassium Chloride Carbon Dioxide BUN Creatinine Glucose POC Glucose 127 H 139 H 165 H Lactic Acid Calcium Ionized Calcium Phosphorus Magnesium Direct Bilirubin AST ALT Alkaline Phosphatase Lactate Dehydrogenase Troponin T C-Reactive Protein Total Protein Albumin Prealbumin Triglycerides Cholesterol LDL Cholesterol Direct HDL Cholesterol 25-OH Vitamin D Total PTH Intact Urine pH Urine WBC (Auto) Urine Creatinine Urine Total Protein Fluid Total Protein Vancomycin Trough Rheumatoid Factor Complement C4 Miscellaneous Test Crossmatch 12/16/16 12/16/16 12/16/16 15:30 16:25 17:31 WBC 17.8 H RBC 2.38 L Hgb 6.4 L Hct 20.3 L MCV MCH 27 L MCHC RDW 17.4 H Plt Count Lymph % (Auto) Benzie % (Auto) Lymph # Benzie # Baso # Seg Neutrophils % Seg Neuts % (Manual) Lymphocytes % (Manual) Monocytes % (Manual) 10.0 H Eosinophils % (Manual) Basophils % (Manual) Nucleated RBC % Seg Neutrophils # Seg Neutrophils # Man 8.5 H Lymphocytes # (Manual) Monocytes # (Manual) 1.8 H Eosinophils # (Manual) Basophils # (Manual) PT INR Fibrinogen dRVVT Confirm Interp Factor V Activity POC ABG pH POC ABG pCO2 POC ABG pO2 ABG pO2 ABG HCO3 ABG Base Excess ABG Hemoglobin Oxyhemoglobin Sodium Potassium Chloride Carbon Dioxide BUN Creatinine Glucose POC Glucose 176 H Lactic Acid Calcium Ionized Calcium Phosphorus Magnesium Direct Bilirubin AST ALT Alkaline Phosphatase Lactate Dehydrogenase Troponin T C-Reactive Protein Total Protein Albumin Prealbumin Triglycerides Cholesterol LDL Cholesterol Direct HDL Cholesterol 25-OH Vitamin D Total PTH Intact Urine pH Urine WBC (Auto) Urine Creatinine Urine Total Protein Fluid Total Protein Vancomycin Trough Rheumatoid Factor Complement C4 Miscellaneous Test Crossmatch See Detail 12/17/16 12/17/16 12/17/16 00:14 04:00 05:00 WBC 20.0 H RBC 2.99 L Hgb 8.5 L Hct 25.7 L MCV MCH MCHC RDW 17.2 H Plt Count Lymph % (Auto) Benzie % (Auto) Lymph # Benzie # Baso # Seg Neutrophils % Seg Neuts % (Manual) Lymphocytes % (Manual) Monocytes % (Manual) Eosinophils % (Manual) Basophils % (Manual) Nucleated RBC % Seg Neutrophils # Seg Neutrophils # Man Lymphocytes # (Manual) Monocytes # (Manual) Eosinophils # (Manual) Basophils # (Manual) PT INR Fibrinogen dRVVT Confirm Interp Factor V Activity POC ABG pH POC ABG pCO2 POC ABG pO2 ABG pO2 ABG HCO3 ABG Base Excess ABG Hemoglobin Oxyhemoglobin Sodium Potassium Chloride 97.7 L Carbon Dioxide BUN 73 H Creatinine 1.7 H Glucose 136 H POC Glucose 148 H Lactic Acid Calcium Ionized Calcium Phosphorus 2.20 L Magnesium 2.70 H Direct Bilirubin AST ALT Alkaline Phosphatase Lactate Dehydrogenase Troponin T C-Reactive Protein Total Protein Albumin Prealbumin Triglycerides Cholesterol LDL Cholesterol Direct HDL Cholesterol 25-OH Vitamin D Total PTH Intact Urine pH Urine WBC (Auto) Urine Creatinine Urine Total Protein Fluid Total Protein Vancomycin Trough Rheumatoid Factor Complement C4 Miscellaneous Test Crossmatch 12/17/16 12/17/16 12/17/16 05:39 12:50 16:32 WBC RBC Hgb Hct MCV MCH MCHC RDW Plt Count Lymph % (Auto) Benzie % (Auto) Lymph # Benzie # Baso # Seg Neutrophils % Seg Neuts % (Manual) Lymphocytes % (Manual) Monocytes % (Manual) Eosinophils % (Manual) Basophils % (Manual) Nucleated RBC % Seg Neutrophils # Seg Neutrophils # Man Lymphocytes # (Manual) Monocytes # (Manual) Eosinophils # (Manual) Basophils # (Manual) PT INR Fibrinogen dRVVT Confirm Interp Factor V Activity POC ABG pH POC ABG pCO2 POC ABG pO2 ABG pO2 ABG HCO3 ABG Base Excess ABG Hemoglobin Oxyhemoglobin Sodium Potassium Chloride Carbon Dioxide BUN Creatinine Glucose POC Glucose 162 H 146 H 169 H Lactic Acid Calcium Ionized Calcium Phosphorus Magnesium Direct Bilirubin AST ALT Alkaline Phosphatase Lactate Dehydrogenase Troponin T C-Reactive Protein Total Protein Albumin Prealbumin Triglycerides Cholesterol LDL Cholesterol Direct HDL Cholesterol 25-OH Vitamin D Total PTH Intact Urine pH Urine WBC (Auto) Urine Creatinine Urine Total Protein Fluid Total Protein Vancomycin Trough Rheumatoid Factor Complement C4 Miscellaneous Test Crossmatch 12/17/16 12/18/16 12/18/16 23:57 05:00 05:32 WBC RBC Hgb Hct MCV MCH MCHC RDW Plt Count Lymph % (Auto) Benzie % (Auto) Lymph # Benzie # Baso # Seg Neutrophils % Seg Neuts % (Manual) Lymphocytes % (Manual) Monocytes % (Manual) Eosinophils % (Manual) Basophils % (Manual) Nucleated RBC % Seg Neutrophils # Seg Neutrophils # Man Lymphocytes # (Manual) Monocytes # (Manual) Eosinophils # (Manual) Basophils # (Manual) PT INR Fibrinogen dRVVT Confirm Interp Factor V Activity POC ABG pH POC ABG pCO2 POC ABG pO2 ABG pO2 ABG HCO3 ABG Base Excess ABG Hemoglobin Oxyhemoglobin Sodium Potassium Chloride 97.0 L Carbon Dioxide BUN 63 H Creatinine 1.4 H Glucose 174 H POC Glucose 145 H 201 H Lactic Acid Calcium Ionized Calcium Phosphorus 1.70 L D Magnesium Direct Bilirubin AST ALT Alkaline Phosphatase 257 H Lactate Dehydrogenase Troponin T C-Reactive Protein Total Protein 5.9 L Albumin 1.8 L Prealbumin Triglycerides Cholesterol LDL Cholesterol Direct HDL Cholesterol 25-OH Vitamin D Total PTH Intact Urine pH Urine WBC (Auto) Urine Creatinine Urine Total Protein Fluid Total Protein Vancomycin Trough Rheumatoid Factor Complement C4 Miscellaneous Test Crossmatch 12/18/16 12/18/16 12/18/16 11:43 16:52 23:52 WBC RBC Hgb Hct MCV MCH MCHC RDW Plt Count Lymph % (Auto) Benzie % (Auto) Lymph # Benzie # Baso # Seg Neutrophils % Seg Neuts % (Manual) Lymphocytes % (Manual) Monocytes % (Manual) Eosinophils % (Manual) Basophils % (Manual) Nucleated RBC % Seg Neutrophils # Seg Neutrophils # Man Lymphocytes # (Manual) Monocytes # (Manual) Eosinophils # (Manual) Basophils # (Manual) PT INR Fibrinogen dRVVT Confirm Interp Factor V Activity POC ABG pH POC ABG pCO2 POC ABG pO2 ABG pO2 ABG HCO3 ABG Base Excess ABG Hemoglobin Oxyhemoglobin Sodium Potassium Chloride Carbon Dioxide BUN Creatinine Glucose POC Glucose 177 H 110 H 162 H Lactic Acid Calcium Ionized Calcium Phosphorus Magnesium Direct Bilirubin AST ALT Alkaline Phosphatase Lactate Dehydrogenase Troponin T C-Reactive Protein Total Protein Albumin Prealbumin Triglycerides Cholesterol LDL Cholesterol Direct HDL Cholesterol 25-OH Vitamin D Total PTH Intact Urine pH Urine WBC (Auto) Urine Creatinine Urine Total Protein Fluid Total Protein Vancomycin Trough Rheumatoid Factor Complement C4 Miscellaneous Test Crossmatch 12/19/16 12/19/16 12/19/16 05:02 05:24 09:30 WBC 20.1 H RBC 2.73 L Hgb 7.6 L Hct 23.6 L MCV MCH MCHC RDW 17.6 H Plt Count Lymph % (Auto) Benzie % (Auto) Lymph # Benzie # Baso # Seg Neutrophils % Seg Neuts % (Manual) Lymphocytes % (Manual) 13.0 L Monocytes % (Manual) Eosinophils % (Manual) Basophils % (Manual) Nucleated RBC % 1.0 H Seg Neutrophils # Seg Neutrophils # Man 12.9 H Lymphocytes # (Manual) Monocytes # (Manual) 1.4 H Eosinophils # (Manual) Basophils # (Manual) 0.2 H PT INR Fibrinogen dRVVT Confirm Interp Factor V Activity POC ABG pH POC ABG pCO2 POC ABG pO2 ABG pO2 ABG HCO3 ABG Base Excess ABG Hemoglobin Oxyhemoglobin Sodium Potassium Chloride 97.8 L Carbon Dioxide BUN 84 H Creatinine 1.6 H Glucose 133 H POC Glucose 134 H Lactic Acid Calcium Ionized Calcium Phosphorus Magnesium Direct Bilirubin AST ALT Alkaline Phosphatase Lactate Dehydrogenase Troponin T C-Reactive Protein Total Protein Albumin Prealbumin Triglycerides Cholesterol LDL Cholesterol Direct HDL Cholesterol 25-OH Vitamin D Total PTH Intact Urine pH Urine WBC (Auto) Urine Creatinine Urine Total Protein Fluid Total Protein Vancomycin Trough Rheumatoid Factor Complement C4 Miscellaneous Test Crossmatch 12/19/16 12/19/16 12/19/16 09:36 11:12 18:29 WBC RBC Hgb Hct MCV MCH MCHC RDW Plt Count Lymph % (Auto) Benzie % (Auto) Lymph # Benzie # Baso # Seg Neutrophils % Seg Neuts % (Manual) Lymphocytes % (Manual) Monocytes % (Manual) Eosinophils % (Manual) Basophils % (Manual) Nucleated RBC % Seg Neutrophils # Seg Neutrophils # Man Lymphocytes # (Manual) Monocytes # (Manual) Eosinophils # (Manual) Basophils # (Manual) PT INR Fibrinogen dRVVT Confirm Interp Factor V Activity POC ABG pH 7.503 H POC ABG pCO2 30.1 L POC ABG pO2 ABG pO2 ABG HCO3 ABG Base Excess ABG Hemoglobin Oxyhemoglobin Sodium Potassium Chloride Carbon Dioxide BUN Creatinine Glucose POC Glucose 138 H 156 H Lactic Acid Calcium Ionized Calcium Phosphorus Magnesium Direct Bilirubin AST ALT Alkaline Phosphatase Lactate Dehydrogenase Troponin T C-Reactive Protein Total Protein Albumin Prealbumin Triglycerides Cholesterol LDL Cholesterol Direct HDL Cholesterol 25-OH Vitamin D Total PTH Intact Urine pH Urine WBC (Auto) Urine Creatinine Urine Total Protein Fluid Total Protein Vancomycin Trough Rheumatoid Factor Complement C4 Miscellaneous Test Crossmatch 12/20/16 12/20/16 12/20/16 00:03 06:17 07:07 WBC RBC Hgb Hct MCV MCH MCHC RDW Plt Count Lymph % (Auto) Benzie % (Auto) Lymph # Benzie # Baso # Seg Neutrophils % Seg Neuts % (Manual) Lymphocytes % (Manual) Monocytes % (Manual) Eosinophils % (Manual) Basophils % (Manual) Nucleated RBC % Seg Neutrophils # Seg Neutrophils # Man Lymphocytes # (Manual) Monocytes # (Manual) Eosinophils # (Manual) Basophils # (Manual) PT INR Fibrinogen dRVVT Confirm Interp Factor V Activity POC ABG pH POC ABG pCO2 POC ABG pO2 ABG pO2 ABG HCO3 ABG Base Excess ABG Hemoglobin Oxyhemoglobin Sodium Potassium Chloride 97.1 L Carbon Dioxide 20 L BUN 97 H Creatinine 1.8 H Glucose 153 H POC Glucose 152 H 175 H Lactic Acid Calcium Ionized Calcium Phosphorus Magnesium Direct Bilirubin AST ALT Alkaline Phosphatase Lactate Dehydrogenase Troponin T C-Reactive Protein Total Protein Albumin Prealbumin Triglycerides Cholesterol LDL Cholesterol Direct HDL Cholesterol 25-OH Vitamin D Total PTH Intact Urine pH Urine WBC (Auto) Urine Creatinine Urine Total Protein Fluid Total Protein Vancomycin Trough Rheumatoid Factor Complement C4 Miscellaneous Test Crossmatch 12/20/16 12/20/16 12/20/16 12:00 17:42 23:53 WBC RBC Hgb Hct MCV MCH MCHC RDW Plt Count Lymph % (Auto) Benzie % (Auto) Lymph # Benzie # Baso # Seg Neutrophils % Seg Neuts % (Manual) Lymphocytes % (Manual) Monocytes % (Manual) Eosinophils % (Manual) Basophils % (Manual) Nucleated RBC % Seg Neutrophils # Seg Neutrophils # Man Lymphocytes # (Manual) Monocytes # (Manual) Eosinophils # (Manual) Basophils # (Manual) PT INR Fibrinogen dRVVT Confirm Interp Factor V Activity POC ABG pH POC ABG pCO2 POC ABG pO2 ABG pO2 ABG HCO3 ABG Base Excess ABG Hemoglobin Oxyhemoglobin Sodium Potassium Chloride Carbon Dioxide BUN Creatinine Glucose POC Glucose 141 H 156 H 132 H Lactic Acid Calcium Ionized Calcium Phosphorus Magnesium Direct Bilirubin AST ALT Alkaline Phosphatase Lactate Dehydrogenase Troponin T C-Reactive Protein Total Protein Albumin Prealbumin Triglycerides Cholesterol LDL Cholesterol Direct HDL Cholesterol 25-OH Vitamin D Total PTH Intact Urine pH Urine WBC (Auto) Urine Creatinine Urine Total Protein Fluid Total Protein Vancomycin Trough Rheumatoid Factor Complement C4 Miscellaneous Test Crossmatch 12/21/16 12/21/16 12/21/16 05:49 08:50 12:19 WBC RBC Hgb Hct MCV MCH MCHC RDW Plt Count Lymph % (Auto) Benzie % (Auto) Lymph # Benzie # Baso # Seg Neutrophils % Seg Neuts % (Manual) Lymphocytes % (Manual) Monocytes % (Manual) Eosinophils % (Manual) Basophils % (Manual) Nucleated RBC % Seg Neutrophils # Seg Neutrophils # Man Lymphocytes # (Manual) Monocytes # (Manual) Eosinophils # (Manual) Basophils # (Manual) PT INR Fibrinogen dRVVT Confirm Interp Factor V Activity POC ABG pH POC ABG pCO2 POC ABG pO2 ABG pO2 ABG HCO3 ABG Base Excess ABG Hemoglobin Oxyhemoglobin Sodium Potassium 5.2 H D Chloride Carbon Dioxide BUN 63 H Creatinine Glucose 122 H POC Glucose 132 H 136 H Lactic Acid Calcium 8.3 L Ionized Calcium Phosphorus Magnesium Direct Bilirubin AST ALT Alkaline Phosphatase Lactate Dehydrogenase Troponin T C-Reactive Protein Total Protein Albumin Prealbumin Triglycerides Cholesterol LDL Cholesterol Direct HDL Cholesterol 25-OH Vitamin D Total PTH Intact Urine pH Urine WBC (Auto) Urine Creatinine Urine Total Protein Fluid Total Protein Vancomycin Trough Rheumatoid Factor Complement C4 Miscellaneous Test Crossmatch 12/21/16 12/21/16 12/22/16 17:22 23:58 05:49 WBC RBC Hgb Hct MCV MCH MCHC RDW Plt Count Lymph % (Auto) Benzie % (Auto) Lymph # Benzie # Baso # Seg Neutrophils % Seg Neuts % (Manual) Lymphocytes % (Manual) Monocytes % (Manual) Eosinophils % (Manual) Basophils % (Manual) Nucleated RBC % Seg Neutrophils # Seg Neutrophils # Man Lymphocytes # (Manual) Monocytes # (Manual) Eosinophils # (Manual) Basophils # (Manual) PT INR Fibrinogen dRVVT Confirm Interp Factor V Activity POC ABG pH POC ABG pCO2 POC ABG pO2 ABG pO2 ABG HCO3 ABG Base Excess ABG Hemoglobin Oxyhemoglobin Sodium Potassium Chloride Carbon Dioxide BUN Creatinine Glucose POC Glucose 135 H 149 H 140 H Lactic Acid Calcium Ionized Calcium Phosphorus Magnesium Direct Bilirubin AST ALT Alkaline Phosphatase Lactate Dehydrogenase Troponin T C-Reactive Protein Total Protein Albumin Prealbumin Triglycerides Cholesterol LDL Cholesterol Direct HDL Cholesterol 25-OH Vitamin D Total PTH Intact Urine pH Urine WBC (Auto) Urine Creatinine Urine Total Protein Fluid Total Protein Vancomycin Trough Rheumatoid Factor Complement C4 Miscellaneous Test Crossmatch 12/22/16 12/22/16 12/22/16 06:10 11:17 17:31 WBC RBC Hgb Hct MCV MCH MCHC RDW Plt Count Lymph % (Auto) Benzie % (Auto) Lymph # Benzie # Baso # Seg Neutrophils % Seg Neuts % (Manual) Lymphocytes % (Manual) Monocytes % (Manual) Eosinophils % (Manual) Basophils % (Manual) Nucleated RBC % Seg Neutrophils # Seg Neutrophils # Man Lymphocytes # (Manual) Monocytes # (Manual) Eosinophils # (Manual) Basophils # (Manual) PT INR Fibrinogen dRVVT Confirm Interp Factor V Activity POC ABG pH POC ABG pCO2 POC ABG pO2 ABG pO2 ABG HCO3 ABG Base Excess ABG Hemoglobin Oxyhemoglobin Sodium Potassium Chloride Carbon Dioxide BUN 76 H Creatinine 1.5 H Glucose 241 H POC Glucose 193 H 148 H Lactic Acid Calcium Ionized Calcium Phosphorus Magnesium Direct Bilirubin AST ALT Alkaline Phosphatase Lactate Dehydrogenase Troponin T C-Reactive Protein Total Protein Albumin Prealbumin Triglycerides Cholesterol LDL Cholesterol Direct HDL Cholesterol 25-OH Vitamin D Total PTH Intact Urine pH Urine WBC (Auto) Urine Creatinine Urine Total Protein Fluid Total Protein Vancomycin Trough Rheumatoid Factor Complement C4 Miscellaneous Test Crossmatch 12/22/16 12/23/16 12/23/16 23:58 05:00 05:26 WBC RBC Hgb Hct MCV MCH MCHC RDW Plt Count Lymph % (Auto) Benzie % (Auto) Lymph # Benzie # Baso # Seg Neutrophils % Seg Neuts % (Manual) Lymphocytes % (Manual) Monocytes % (Manual) Eosinophils % (Manual) Basophils % (Manual) Nucleated RBC % Seg Neutrophils # Seg Neutrophils # Man Lymphocytes # (Manual) Monocytes # (Manual) Eosinophils # (Manual) Basophils # (Manual) PT INR Fibrinogen dRVVT Confirm Interp Factor V Activity POC ABG pH POC ABG pCO2 POC ABG pO2 ABG pO2 ABG HCO3 ABG Base Excess ABG Hemoglobin Oxyhemoglobin Sodium Potassium Chloride Carbon Dioxide BUN 49 H Creatinine Glucose 143 H POC Glucose 165 H 154 H Lactic Acid Calcium 8.2 L Ionized Calcium Phosphorus Magnesium 1.60 L Direct Bilirubin AST ALT Alkaline Phosphatase Lactate Dehydrogenase Troponin T C-Reactive Protein Total Protein Albumin Prealbumin Triglycerides Cholesterol LDL Cholesterol Direct HDL Cholesterol 25-OH Vitamin D Total PTH Intact Urine pH Urine WBC (Auto) Urine Creatinine Urine Total Protein Fluid Total Protein Vancomycin Trough Rheumatoid Factor Complement C4 Miscellaneous Test Crossmatch 12/23/16 12/23/16 12/24/16 12:35 17:01 00:01 WBC RBC Hgb Hct MCV MCH MCHC RDW Plt Count Lymph % (Auto) Benzie % (Auto) Lymph # Benzie # Baso # Seg Neutrophils % Seg Neuts % (Manual) Lymphocytes % (Manual) Monocytes % (Manual) Eosinophils % (Manual) Basophils % (Manual) Nucleated RBC % Seg Neutrophils # Seg Neutrophils # Man Lymphocytes # (Manual) Monocytes # (Manual) Eosinophils # (Manual) Basophils # (Manual) PT INR Fibrinogen dRVVT Confirm Interp Factor V Activity POC ABG pH POC ABG pCO2 POC ABG pO2 ABG pO2 ABG HCO3 ABG Base Excess ABG Hemoglobin Oxyhemoglobin Sodium Potassium Chloride Carbon Dioxide BUN Creatinine Glucose POC Glucose 164 H 149 H 135 H Lactic Acid Calcium Ionized Calcium Phosphorus Magnesium Direct Bilirubin AST ALT Alkaline Phosphatase Lactate Dehydrogenase Troponin T C-Reactive Protein Total Protein Albumin Prealbumin Triglycerides Cholesterol LDL Cholesterol Direct HDL Cholesterol 25-OH Vitamin D Total PTH Intact Urine pH Urine WBC (Auto) Urine Creatinine Urine Total Protein Fluid Total Protein Vancomycin Trough Rheumatoid Factor Complement C4 Miscellaneous Test Crossmatch 12/24/16 12/24/16 12/24/16 05:41 07:01 11:38 WBC RBC Hgb Hct MCV MCH MCHC RDW Plt Count Lymph % (Auto) Benzie % (Auto) Lymph # Benzie # Baso # Seg Neutrophils % Seg Neuts % (Manual) Lymphocytes % (Manual) Monocytes % (Manual) Eosinophils % (Manual) Basophils % (Manual) Nucleated RBC % Seg Neutrophils # Seg Neutrophils # Man Lymphocytes # (Manual) Monocytes # (Manual) Eosinophils # (Manual) Basophils # (Manual) PT INR Fibrinogen dRVVT Confirm Interp Factor V Activity POC ABG pH POC ABG pCO2 POC ABG pO2 ABG pO2 ABG HCO3 ABG Base Excess ABG Hemoglobin Oxyhemoglobin Sodium Potassium Chloride Carbon Dioxide BUN 72 H Creatinine 1.3 H Glucose 130 H POC Glucose 132 H 156 H Lactic Acid Calcium 8.2 L Ionized Calcium Phosphorus Magnesium Direct Bilirubin AST ALT Alkaline Phosphatase Lactate Dehydrogenase Troponin T C-Reactive Protein Total Protein Albumin Prealbumin Triglycerides Cholesterol LDL Cholesterol Direct HDL Cholesterol 25-OH Vitamin D Total PTH Intact Urine pH Urine WBC (Auto) Urine Creatinine Urine Total Protein Fluid Total Protein Vancomycin Trough Rheumatoid Factor Complement C4 Miscellaneous Test Crossmatch 12/24/16 12/25/16 12/25/16 17:53 00:23 05:45 WBC RBC Hgb Hct MCV MCH MCHC RDW Plt Count Lymph % (Auto) Benzie % (Auto) Lymph # Benzie # Baso # Seg Neutrophils % Seg Neuts % (Manual) Lymphocytes % (Manual) Monocytes % (Manual) Eosinophils % (Manual) Basophils % (Manual) Nucleated RBC % Seg Neutrophils # Seg Neutrophils # Man Lymphocytes # (Manual) Monocytes # (Manual) Eosinophils # (Manual) Basophils # (Manual) PT INR Fibrinogen dRVVT Confirm Interp Factor V Activity POC ABG pH POC ABG pCO2 POC ABG pO2 ABG pO2 ABG HCO3 ABG Base Excess ABG Hemoglobin Oxyhemoglobin Sodium 146 H Potassium Chloride Carbon Dioxide BUN 51 H Creatinine Glucose 109 H POC Glucose 169 H 117 H Lactic Acid Calcium Ionized Calcium Phosphorus Magnesium Direct Bilirubin AST ALT Alkaline Phosphatase Lactate Dehydrogenase Troponin T C-Reactive Protein Total Protein Albumin Prealbumin Triglycerides Cholesterol LDL Cholesterol Direct HDL Cholesterol 25-OH Vitamin D Total PTH Intact Urine pH Urine WBC (Auto) Urine Creatinine Urine Total Protein Fluid Total Protein Vancomycin Trough Rheumatoid Factor Complement C4 Miscellaneous Test Crossmatch 12/25/16 12/25/16 12/25/16 06:43 11:29 17:14 WBC RBC Hgb Hct MCV MCH MCHC RDW Plt Count Lymph % (Auto) Benzie % (Auto) Lymph # Benzie # Baso # Seg Neutrophils % Seg Neuts % (Manual) Lymphocytes % (Manual) Monocytes % (Manual) Eosinophils % (Manual) Basophils % (Manual) Nucleated RBC % Seg Neutrophils # Seg Neutrophils # Man Lymphocytes # (Manual) Monocytes # (Manual) Eosinophils # (Manual) Basophils # (Manual) PT INR Fibrinogen dRVVT Confirm Interp Factor V Activity POC ABG pH POC ABG pCO2 POC ABG pO2 ABG pO2 ABG HCO3 ABG Base Excess ABG Hemoglobin Oxyhemoglobin Sodium Potassium Chloride Carbon Dioxide BUN Creatinine Glucose POC Glucose 117 H 128 H 120 H Lactic Acid Calcium Ionized Calcium Phosphorus Magnesium Direct Bilirubin AST ALT Alkaline Phosphatase Lactate Dehydrogenase Troponin T C-Reactive Protein Total Protein Albumin Prealbumin Triglycerides Cholesterol LDL Cholesterol Direct HDL Cholesterol 25-OH Vitamin D Total PTH Intact Urine pH Urine WBC (Auto) Urine Creatinine Urine Total Protein Fluid Total Protein Vancomycin Trough Rheumatoid Factor Complement C4 Miscellaneous Test Crossmatch 12/25/16 12/26/16 12/26/16 23:54 05:40 05:50 WBC 16.2 H RBC 2.32 L Hgb 6.2 L Hct 20.1 L MCV MCH 27 L MCHC RDW 18.6 H Plt Count Lymph % (Auto) Benzie % (Auto) Lymph # Benzie # Baso # Seg Neutrophils % Seg Neuts % (Manual) Lymphocytes % (Manual) Monocytes % (Manual) Eosinophils % (Manual) Basophils % (Manual) Nucleated RBC % Seg Neutrophils # Seg Neutrophils # Man Lymphocytes # (Manual) Monocytes # (Manual) Eosinophils # (Manual) Basophils # (Manual) PT INR Fibrinogen dRVVT Confirm Interp Factor V Activity POC ABG pH POC ABG pCO2 POC ABG pO2 ABG pO2 ABG HCO3 ABG Base Excess ABG Hemoglobin Oxyhemoglobin Sodium Potassium Chloride Carbon Dioxide BUN Creatinine Glucose POC Glucose 126 H 132 H Lactic Acid Calcium Ionized Calcium Phosphorus Magnesium Direct Bilirubin AST ALT Alkaline Phosphatase Lactate Dehydrogenase Troponin T C-Reactive Protein Total Protein Albumin Prealbumin Triglycerides Cholesterol LDL Cholesterol Direct HDL Cholesterol 25-OH Vitamin D Total PTH Intact Urine pH Urine WBC (Auto) Urine Creatinine Urine Total Protein Fluid Total Protein Vancomycin Trough Rheumatoid Factor Complement C4 Miscellaneous Test Crossmatch 12/26/16 12/26/16 12/26/16 05:50 12:17 12:33 WBC RBC Hgb Hct MCV MCH MCHC RDW Plt Count Lymph % (Auto) Benzie % (Auto) Lymph # Benzie # Baso # Seg Neutrophils % Seg Neuts % (Manual) Lymphocytes % (Manual) Monocytes % (Manual) Eosinophils % (Manual) Basophils % (Manual) Nucleated RBC % Seg Neutrophils # Seg Neutrophils # Man Lymphocytes # (Manual) Monocytes # (Manual) Eosinophils # (Manual) Basophils # (Manual) PT INR Fibrinogen dRVVT Confirm Interp Factor V Activity POC ABG pH POC ABG pCO2 POC ABG pO2 ABG pO2 ABG HCO3 ABG Base Excess ABG Hemoglobin Oxyhemoglobin Sodium Potassium Chloride Carbon Dioxide BUN 73 H Creatinine 1.3 H Glucose 113 H POC Glucose 117 H Lactic Acid Calcium Ionized Calcium Phosphorus Magnesium Direct Bilirubin AST ALT Alkaline Phosphatase Lactate Dehydrogenase Troponin T C-Reactive Protein Total Protein Albumin Prealbumin Triglycerides Cholesterol LDL Cholesterol Direct HDL Cholesterol 25-OH Vitamin D Total PTH Intact Urine pH Urine WBC (Auto) Urine Creatinine Urine Total Protein Fluid Total Protein Vancomycin Trough Rheumatoid Factor Complement C4 Miscellaneous Test Crossmatch See Detail 12/26/16 12/26/16 12/27/16 20:00 23:21 05:00 WBC RBC Hgb 8.4 L Hct 26.3 L D MCV MCH MCHC RDW Plt Count Lymph % (Auto) Benzie % (Auto) Lymph # Benzie # Baso # Seg Neutrophils % Seg Neuts % (Manual) Lymphocytes % (Manual) Monocytes % (Manual) Eosinophils % (Manual) Basophils % (Manual) Nucleated RBC % Seg Neutrophils # Seg Neutrophils # Man Lymphocytes # (Manual) Monocytes # (Manual) Eosinophils # (Manual) Basophils # (Manual) PT INR Fibrinogen dRVVT Confirm Interp Factor V Activity POC ABG pH POC ABG pCO2 POC ABG pO2 ABG pO2 ABG HCO3 ABG Base Excess ABG Hemoglobin Oxyhemoglobin Sodium Potassium Chloride Carbon Dioxide BUN 85 H Creatinine 1.6 H Glucose 118 H POC Glucose 124 H Lactic Acid Calcium Ionized Calcium Phosphorus 4.80 H Magnesium Direct Bilirubin AST ALT Alkaline Phosphatase Lactate Dehydrogenase Troponin T C-Reactive Protein Total Protein Albumin Prealbumin Triglycerides Cholesterol LDL Cholesterol Direct HDL Cholesterol 25-OH Vitamin D Total PTH Intact Urine pH Urine WBC (Auto) Urine Creatinine Urine Total Protein Fluid Total Protein Vancomycin Trough Rheumatoid Factor Complement C4 Miscellaneous Test Crossmatch 12/27/16 12/27/16 12/27/16 05:00 05:35 12:24 WBC RBC Hgb 7.6 L Hct 22.8 L MCV MCH MCHC RDW Plt Count Lymph % (Auto) Benzie % (Auto) Lymph # Benzie # Baso # Seg Neutrophils % Seg Neuts % (Manual) Lymphocytes % (Manual) Monocytes % (Manual) Eosinophils % (Manual) Basophils % (Manual) Nucleated RBC % Seg Neutrophils # Seg Neutrophils # Man Lymphocytes # (Manual) Monocytes # (Manual) Eosinophils # (Manual) Basophils # (Manual) PT INR Fibrinogen dRVVT Confirm Interp Factor V Activity POC ABG pH POC ABG pCO2 POC ABG pO2 ABG pO2 ABG HCO3 ABG Base Excess ABG Hemoglobin Oxyhemoglobin Sodium Potassium Chloride Carbon Dioxide BUN Creatinine Glucose POC Glucose 115 H 131 H Lactic Acid Calcium Ionized Calcium Phosphorus Magnesium Direct Bilirubin AST ALT Alkaline Phosphatase Lactate Dehydrogenase Troponin T C-Reactive Protein Total Protein Albumin Prealbumin Triglycerides Cholesterol LDL Cholesterol Direct HDL Cholesterol 25-OH Vitamin D Total PTH Intact Urine pH Urine WBC (Auto) Urine Creatinine Urine Total Protein Fluid Total Protein Vancomycin Trough Rheumatoid Factor Complement C4 Miscellaneous Test Crossmatch 12/27/16 12/28/16 12/28/16 17:16 00:18 04:00 WBC RBC Hgb Hct MCV MCH MCHC RDW Plt Count Lymph % (Auto) Benzie % (Auto) Lymph # Benzie # Baso # Seg Neutrophils % Seg Neuts % (Manual) Lymphocytes % (Manual) Monocytes % (Manual) Eosinophils % (Manual) Basophils % (Manual) Nucleated RBC % Seg Neutrophils # Seg Neutrophils # Man Lymphocytes # (Manual) Monocytes # (Manual) Eosinophils # (Manual) Basophils # (Manual) PT INR Fibrinogen dRVVT Confirm Interp Factor V Activity POC ABG pH POC ABG pCO2 POC ABG pO2 ABG pO2 ABG HCO3 ABG Base Excess ABG Hemoglobin Oxyhemoglobin Sodium Potassium 3.5 L Chloride Carbon Dioxide BUN 57 H Creatinine Glucose 118 H POC Glucose 136 H 120 H Lactic Acid Calcium 8.3 L Ionized Calcium Phosphorus Magnesium Direct Bilirubin AST ALT Alkaline Phosphatase Lactate Dehydrogenase Troponin T C-Reactive Protein Total Protein Albumin Prealbumin Triglycerides Cholesterol LDL Cholesterol Direct HDL Cholesterol 25-OH Vitamin D Total PTH Intact Urine pH Urine WBC (Auto) Urine Creatinine Urine Total Protein Fluid Total Protein Vancomycin Trough Rheumatoid Factor Complement C4 Miscellaneous Test Crossmatch 12/28/16 12/28/16 12/28/16 04:00 05:11 08:30 WBC 17.0 H RBC 2.58 L Hgb 7.1 L Hct 22.0 L MCV MCH MCHC RDW 17.6 H Plt Count Lymph % (Auto) 12.2 L Benzie % (Auto) Lymph # Benzie # 1.1 H Baso # Seg Neutrophils % 80.5 H Seg Neuts % (Manual) Lymphocytes % (Manual) Monocytes % (Manual) Eosinophils % (Manual) Basophils % (Manual) Nucleated RBC % Seg Neutrophils # 13.7 H Seg Neutrophils # Man Lymphocytes # (Manual) Monocytes # (Manual) Eosinophils # (Manual) Basophils # (Manual) PT 16.1 H INR 1.23 H Fibrinogen dRVVT Confirm Interp Factor V Activity POC ABG pH POC ABG pCO2 POC ABG pO2 ABG pO2 ABG HCO3 ABG Base Excess ABG Hemoglobin Oxyhemoglobin Sodium Potassium Chloride Carbon Dioxide BUN Creatinine Glucose POC Glucose 122 H Lactic Acid Calcium Ionized Calcium Phosphorus Magnesium Direct Bilirubin AST ALT Alkaline Phosphatase Lactate Dehydrogenase Troponin T C-Reactive Protein Total Protein Albumin Prealbumin Triglycerides Cholesterol LDL Cholesterol Direct HDL Cholesterol 25-OH Vitamin D Total PTH Intact Urine pH Urine WBC (Auto) Urine Creatinine Urine Total Protein Fluid Total Protein Vancomycin Trough Rheumatoid Factor Complement C4 Miscellaneous Test Crossmatch 12/28/16 12/28/16 12/28/16 12:27 16:32 23:46 WBC RBC Hgb Hct MCV MCH MCHC RDW Plt Count Lymph % (Auto) Benzie % (Auto) Lymph # Benzie # Baso # Seg Neutrophils % Seg Neuts % (Manual) Lymphocytes % (Manual) Monocytes % (Manual) Eosinophils % (Manual) Basophils % (Manual) Nucleated RBC % Seg Neutrophils # Seg Neutrophils # Man Lymphocytes # (Manual) Monocytes # (Manual) Eosinophils # (Manual) Basophils # (Manual) PT INR Fibrinogen dRVVT Confirm Interp Factor V Activity POC ABG pH POC ABG pCO2 POC ABG pO2 ABG pO2 ABG HCO3 ABG Base Excess ABG Hemoglobin Oxyhemoglobin Sodium Potassium Chloride Carbon Dioxide BUN Creatinine Glucose POC Glucose 127 H 117 H 108 H Lactic Acid Calcium Ionized Calcium Phosphorus Magnesium Direct Bilirubin AST ALT Alkaline Phosphatase Lactate Dehydrogenase Troponin T C-Reactive Protein Total Protein Albumin Prealbumin Triglycerides Cholesterol LDL Cholesterol Direct HDL Cholesterol 25-OH Vitamin D Total PTH Intact Urine pH Urine WBC (Auto) Urine Creatinine Urine Total Protein Fluid Total Protein Vancomycin Trough Rheumatoid Factor Complement C4 Miscellaneous Test Crossmatch 12/29/16 12/29/16 12/29/16 05:15 05:15 05:32 WBC RBC Hgb Hct MCV MCH MCHC RDW Plt Count Lymph % (Auto) Benzie % (Auto) Lymph # Benzie # Baso # Seg Neutrophils % Seg Neuts % (Manual) Lymphocytes % (Manual) Monocytes % (Manual) Eosinophils % (Manual) Basophils % (Manual) Nucleated RBC % Seg Neutrophils # Seg Neutrophils # Man Lymphocytes # (Manual) Monocytes # (Manual) Eosinophils # (Manual) Basophils # (Manual) PT INR Fibrinogen dRVVT Confirm Interp Factor V Activity POC ABG pH POC ABG pCO2 POC ABG pO2 ABG pO2 ABG HCO3 ABG Base Excess ABG Hemoglobin Oxyhemoglobin Sodium Potassium Chloride Carbon Dioxide BUN 74 H Creatinine 1.6 H Glucose 111 H POC Glucose 123 H Lactic Acid Calcium Ionized Calcium Phosphorus Magnesium Direct Bilirubin AST ALT Alkaline Phosphatase Lactate Dehydrogenase Troponin T C-Reactive Protein Total Protein Albumin Prealbumin 0.110 L Triglycerides Cholesterol LDL Cholesterol Direct HDL Cholesterol 25-OH Vitamin D Total PTH Intact Urine pH Urine WBC (Auto) Urine Creatinine Urine Total Protein Fluid Total Protein Vancomycin Trough Rheumatoid Factor Complement C4 Miscellaneous Test Crossmatch 12/29/16 12/29/16 12/29/16 11:43 13:45 14:00 WBC 13.8 H RBC 2.26 L Hgb 6.3 L Hct 20.4 L MCV MCH MCHC RDW 18.3 H Plt Count Lymph % (Auto) Benzie % (Auto) Lymph # Benzie # 0.9 H Baso # Seg Neutrophils % 78.6 H Seg Neuts % (Manual) Lymphocytes % (Manual) Monocytes % (Manual) Eosinophils % (Manual) Basophils % (Manual) Nucleated RBC % Seg Neutrophils # 10.8 H Seg Neutrophils # Man Lymphocytes # (Manual) Monocytes # (Manual) Eosinophils # (Manual) Basophils # (Manual) PT INR Fibrinogen dRVVT Confirm Interp Factor V Activity POC ABG pH POC ABG pCO2 POC ABG pO2 ABG pO2 ABG HCO3 ABG Base Excess ABG Hemoglobin Oxyhemoglobin Sodium Potassium Chloride Carbon Dioxide BUN Creatinine Glucose POC Glucose 133 H Lactic Acid Calcium Ionized Calcium Phosphorus Magnesium Direct Bilirubin AST ALT Alkaline Phosphatase Lactate Dehydrogenase Troponin T C-Reactive Protein Total Protein Albumin Prealbumin Triglycerides Cholesterol LDL Cholesterol Direct HDL Cholesterol 25-OH Vitamin D Total PTH Intact Urine pH Urine WBC (Auto) Urine Creatinine Urine Total Protein Fluid Total Protein Vancomycin Trough Rheumatoid Factor Complement C4 Miscellaneous Test Crossmatch See Detail 12/29/16 12/29/16 12/29/16 17:03 23:15 23:22 WBC RBC Hgb 7.3 L Hct 22.3 L MCV MCH MCHC RDW Plt Count Lymph % (Auto) Benzie % (Auto) Lymph # Benzie # Baso # Seg Neutrophils % Seg Neuts % (Manual) Lymphocytes % (Manual) Monocytes % (Manual) Eosinophils % (Manual) Basophils % (Manual) Nucleated RBC % Seg Neutrophils # Seg Neutrophils # Man Lymphocytes # (Manual) Monocytes # (Manual) Eosinophils # (Manual) Basophils # (Manual) PT INR Fibrinogen dRVVT Confirm Interp Factor V Activity POC ABG pH POC ABG pCO2 POC ABG pO2 ABG pO2 ABG HCO3 ABG Base Excess ABG Hemoglobin Oxyhemoglobin Sodium Potassium Chloride Carbon Dioxide BUN Creatinine Glucose POC Glucose 139 H 120 H Lactic Acid Calcium Ionized Calcium Phosphorus Magnesium Direct Bilirubin AST ALT Alkaline Phosphatase Lactate Dehydrogenase Troponin T C-Reactive Protein Total Protein Albumin Prealbumin Triglycerides Cholesterol LDL Cholesterol Direct HDL Cholesterol 25-OH Vitamin D Total PTH Intact Urine pH Urine WBC (Auto) Urine Creatinine Urine Total Protein Fluid Total Protein Vancomycin Trough Rheumatoid Factor Complement C4 Miscellaneous Test Crossmatch 12/30/16 12/30/16 12/30/16 04:20 04:20 05:43 WBC 15.6 H RBC 2.81 L Hgb 8.0 L Hct 24.0 L MCV MCH MCHC RDW 16.9 H Plt Count Lymph % (Auto) Benzie % (Auto) Lymph # Benzie # 1.0 H Baso # Seg Neutrophils % 76.2 H Seg Neuts % (Manual) Lymphocytes % (Manual) Monocytes % (Manual) Eosinophils % (Manual) Basophils % (Manual) Nucleated RBC % Seg Neutrophils # 11.9 H Seg Neutrophils # Man Lymphocytes # (Manual) Monocytes # (Manual) Eosinophils # (Manual) Basophils # (Manual) PT INR Fibrinogen dRVVT Confirm Interp Factor V Activity POC ABG pH POC ABG pCO2 POC ABG pO2 ABG pO2 ABG HCO3 ABG Base Excess ABG Hemoglobin Oxyhemoglobin Sodium Potassium Chloride Carbon Dioxide BUN 87 H Creatinine 1.8 H Glucose 119 H POC Glucose 115 H Lactic Acid Calcium Ionized Calcium Phosphorus Magnesium Direct Bilirubin AST ALT Alkaline Phosphatase Lactate Dehydrogenase Troponin T C-Reactive Protein Total Protein Albumin Prealbumin Triglycerides Cholesterol LDL Cholesterol Direct HDL Cholesterol 25-OH Vitamin D Total PTH Intact Urine pH Urine WBC (Auto) Urine Creatinine Urine Total Protein Fluid Total Protein Vancomycin Trough Rheumatoid Factor Complement C4 Miscellaneous Test Crossmatch 12/30/16 12/30/16 12/31/16 17:27 23:21 04:00 WBC RBC Hgb Hct MCV MCH MCHC RDW Plt Count Lymph % (Auto) Benzie % (Auto) Lymph # Benzie # Baso # Seg Neutrophils % Seg Neuts % (Manual) Lymphocytes % (Manual) Monocytes % (Manual) Eosinophils % (Manual) Basophils % (Manual) Nucleated RBC % Seg Neutrophils # Seg Neutrophils # Man Lymphocytes # (Manual) Monocytes # (Manual) Eosinophils # (Manual) Basophils # (Manual) PT INR Fibrinogen dRVVT Confirm Interp Factor V Activity POC ABG pH POC ABG pCO2 POC ABG pO2 ABG pO2 ABG HCO3 ABG Base Excess ABG Hemoglobin Oxyhemoglobin Sodium Potassium Chloride Carbon Dioxide BUN 59 H Creatinine Glucose 298 H POC Glucose 144 H 125 H Lactic Acid Calcium Ionized Calcium Phosphorus Magnesium Direct Bilirubin AST ALT Alkaline Phosphatase Lactate Dehydrogenase Troponin T C-Reactive Protein Total Protein Albumin Prealbumin Triglycerides Cholesterol LDL Cholesterol Direct HDL Cholesterol 25-OH Vitamin D Total PTH Intact Urine pH Urine WBC (Auto) Urine Creatinine Urine Total Protein Fluid Total Protein Vancomycin Trough Rheumatoid Factor Complement C4 Miscellaneous Test Crossmatch 12/31/16 12/31/16 12/31/16 05:11 12:18 18:17 WBC RBC Hgb Hct MCV MCH MCHC RDW Plt Count Lymph % (Auto) Benzie % (Auto) Lymph # Benzie # Baso # Seg Neutrophils % Seg Neuts % (Manual) Lymphocytes % (Manual) Monocytes % (Manual) Eosinophils % (Manual) Basophils % (Manual) Nucleated RBC % Seg Neutrophils # Seg Neutrophils # Man Lymphocytes # (Manual) Monocytes # (Manual) Eosinophils # (Manual) Basophils # (Manual) PT INR Fibrinogen dRVVT Confirm Interp Factor V Activity POC ABG pH POC ABG pCO2 POC ABG pO2 ABG pO2 ABG HCO3 ABG Base Excess ABG Hemoglobin Oxyhemoglobin Sodium Potassium Chloride Carbon Dioxide BUN Creatinine Glucose POC Glucose 167 H 125 H 133 H Lactic Acid Calcium Ionized Calcium Phosphorus Magnesium Direct Bilirubin AST ALT Alkaline Phosphatase Lactate Dehydrogenase Troponin T C-Reactive Protein Total Protein Albumin Prealbumin Triglycerides Cholesterol LDL Cholesterol Direct HDL Cholesterol 25-OH Vitamin D Total PTH Intact Urine pH Urine WBC (Auto) Urine Creatinine Urine Total Protein Fluid Total Protein Vancomycin Trough Rheumatoid Factor Complement C4 Miscellaneous Test Crossmatch 12/31/16 01/01/17 01/01/17 23:55 05:00 05:12 WBC RBC Hgb Hct MCV MCH MCHC RDW Plt Count Lymph % (Auto) Benzie % (Auto) Lymph # Benzie # Baso # Seg Neutrophils % Seg Neuts % (Manual) Lymphocytes % (Manual) Monocytes % (Manual) Eosinophils % (Manual) Basophils % (Manual) Nucleated RBC % Seg Neutrophils # Seg Neutrophils # Man Lymphocytes # (Manual) Monocytes # (Manual) Eosinophils # (Manual) Basophils # (Manual) PT INR Fibrinogen dRVVT Confirm Interp Factor V Activity POC ABG pH POC ABG pCO2 POC ABG pO2 ABG pO2 ABG HCO3 ABG Base Excess ABG Hemoglobin Oxyhemoglobin Sodium Potassium Chloride Carbon Dioxide BUN 76 H Creatinine 1.5 H Glucose 109 H POC Glucose 129 H 129 H Lactic Acid Calcium Ionized Calcium Phosphorus Magnesium Direct Bilirubin AST ALT Alkaline Phosphatase 536 H Lactate Dehydrogenase Troponin T C-Reactive Protein Total Protein Albumin 1.5 L Prealbumin Triglycerides Cholesterol LDL Cholesterol Direct HDL Cholesterol 25-OH Vitamin D Total PTH Intact Urine pH Urine WBC (Auto) Urine Creatinine Urine Total Protein Fluid Total Protein Vancomycin Trough Rheumatoid Factor Complement C4 Miscellaneous Test Crossmatch 01/01/17 01/01/17 01/01/17 12:25 17:01 23:32 WBC RBC Hgb Hct MCV MCH MCHC RDW Plt Count Lymph % (Auto) Benzie % (Auto) Lymph # Benzie # Baso # Seg Neutrophils % Seg Neuts % (Manual) Lymphocytes % (Manual) Monocytes % (Manual) Eosinophils % (Manual) Basophils % (Manual) Nucleated RBC % Seg Neutrophils # Seg Neutrophils # Man Lymphocytes # (Manual) Monocytes # (Manual) Eosinophils # (Manual) Basophils # (Manual) PT INR Fibrinogen dRVVT Confirm Interp Factor V Activity POC ABG pH POC ABG pCO2 POC ABG pO2 ABG pO2 ABG HCO3 ABG Base Excess ABG Hemoglobin Oxyhemoglobin Sodium Potassium Chloride Carbon Dioxide BUN Creatinine Glucose POC Glucose 140 H 142 H 112 H Lactic Acid Calcium Ionized Calcium Phosphorus Magnesium Direct Bilirubin AST ALT Alkaline Phosphatase Lactate Dehydrogenase Troponin T C-Reactive Protein Total Protein Albumin Prealbumin Triglycerides Cholesterol LDL Cholesterol Direct HDL Cholesterol 25-OH Vitamin D Total PTH Intact Urine pH Urine WBC (Auto) Urine Creatinine Urine Total Protein Fluid Total Protein Vancomycin Trough Rheumatoid Factor Complement C4 Miscellaneous Test Crossmatch 01/02/17 01/02/17 01/02/17 04:56 06:00 11:37 WBC RBC Hgb Hct MCV MCH MCHC RDW Plt Count Lymph % (Auto) Benzie % (Auto) Lymph # Benzie # Baso # Seg Neutrophils % Seg Neuts % (Manual) Lymphocytes % (Manual) Monocytes % (Manual) Eosinophils % (Manual) Basophils % (Manual) Nucleated RBC % Seg Neutrophils # Seg Neutrophils # Man Lymphocytes # (Manual) Monocytes # (Manual) Eosinophils # (Manual) Basophils # (Manual) PT INR Fibrinogen dRVVT Confirm Interp Factor V Activity POC ABG pH POC ABG pCO2 POC ABG pO2 ABG pO2 ABG HCO3 ABG Base Excess ABG Hemoglobin Oxyhemoglobin Sodium Potassium Chloride Carbon Dioxide BUN 88 H Creatinine 1.7 H Glucose 113 H POC Glucose 136 H 200 H Lactic Acid Calcium Ionized Calcium Phosphorus Magnesium Direct Bilirubin AST ALT Alkaline Phosphatase Lactate Dehydrogenase Troponin T C-Reactive Protein Total Protein Albumin Prealbumin Triglycerides Cholesterol LDL Cholesterol Direct HDL Cholesterol 25-OH Vitamin D Total PTH Intact Urine pH Urine WBC (Auto) Urine Creatinine Urine Total Protein Fluid Total Protein Vancomycin Trough Rheumatoid Factor Complement C4 Miscellaneous Test Crossmatch 01/02/17 01/02/17 01/03/17 17:42 22:52 04:54 WBC RBC Hgb Hct MCV MCH MCHC RDW Plt Count Lymph % (Auto) Benzie % (Auto) Lymph # Benzie # Baso # Seg Neutrophils % Seg Neuts % (Manual) Lymphocytes % (Manual) Monocytes % (Manual) Eosinophils % (Manual) Basophils % (Manual) Nucleated RBC % Seg Neutrophils # Seg Neutrophils # Man Lymphocytes # (Manual) Monocytes # (Manual) Eosinophils # (Manual) Basophils # (Manual) PT INR Fibrinogen dRVVT Confirm Interp Factor V Activity POC ABG pH POC ABG pCO2 POC ABG pO2 ABG pO2 ABG HCO3 ABG Base Excess ABG Hemoglobin Oxyhemoglobin Sodium Potassium Chloride Carbon Dioxide BUN Creatinine Glucose POC Glucose 112 H 133 H 111 H Lactic Acid Calcium Ionized Calcium Phosphorus Magnesium Direct Bilirubin AST ALT Alkaline Phosphatase Lactate Dehydrogenase Troponin T C-Reactive Protein Total Protein Albumin Prealbumin Triglycerides Cholesterol LDL Cholesterol Direct HDL Cholesterol 25-OH Vitamin D Total PTH Intact Urine pH Urine WBC (Auto) Urine Creatinine Urine Total Protein Fluid Total Protein Vancomycin Trough Rheumatoid Factor Complement C4 Miscellaneous Test Crossmatch 01/03/17 01/03/17 01/03/17 05:00 05:00 14:02 WBC 11.2 H RBC 2.56 L Hgb 7.2 L Hct 22.3 L MCV MCH MCHC RDW 17.3 H Plt Count Lymph % (Auto) Benzie % (Auto) 10.0 H Lymph # Benzie # 1.1 H Baso # Seg Neutrophils % 70.5 H Seg Neuts % (Manual) Lymphocytes % (Manual) Monocytes % (Manual) Eosinophils % (Manual) Basophils % (Manual) Nucleated RBC % Seg Neutrophils # 7.9 H Seg Neutrophils # Man Lymphocytes # (Manual) Monocytes # (Manual) Eosinophils # (Manual) Basophils # (Manual) PT INR Fibrinogen dRVVT Confirm Interp Factor V Activity POC ABG pH POC ABG pCO2 POC ABG pO2 ABG pO2 ABG HCO3 ABG Base Excess ABG Hemoglobin Oxyhemoglobin Sodium Potassium Chloride Carbon Dioxide BUN 60 H Creatinine 1.3 H Glucose 110 H POC Glucose 119 H Lactic Acid Calcium Ionized Calcium Phosphorus Magnesium Direct Bilirubin AST ALT Alkaline Phosphatase Lactate Dehydrogenase Troponin T C-Reactive Protein Total Protein Albumin Prealbumin Triglycerides Cholesterol LDL Cholesterol Direct HDL Cholesterol 25-OH Vitamin D Total PTH Intact Urine pH Urine WBC (Auto) Urine Creatinine Urine Total Protein Fluid Total Protein Vancomycin Trough Rheumatoid Factor Complement C4 Miscellaneous Test Crossmatch 01/03/17 01/03/17 01/04/17 18:13 23:40 05:57 WBC RBC Hgb Hct MCV MCH MCHC RDW Plt Count Lymph % (Auto) Benzie % (Auto) Lymph # Benzie # Baso # Seg Neutrophils % Seg Neuts % (Manual) Lymphocytes % (Manual) Monocytes % (Manual) Eosinophils % (Manual) Basophils % (Manual) Nucleated RBC % Seg Neutrophils # Seg Neutrophils # Man Lymphocytes # (Manual) Monocytes # (Manual) Eosinophils # (Manual) Basophils # (Manual) PT INR Fibrinogen dRVVT Confirm Interp Factor V Activity POC ABG pH POC ABG pCO2 POC ABG pO2 ABG pO2 ABG HCO3 ABG Base Excess ABG Hemoglobin Oxyhemoglobin Sodium Potassium Chloride Carbon Dioxide BUN Creatinine Glucose POC Glucose 107 H 129 H 111 H Lactic Acid Calcium Ionized Calcium Phosphorus Magnesium Direct Bilirubin AST ALT Alkaline Phosphatase Lactate Dehydrogenase Troponin T C-Reactive Protein Total Protein Albumin Prealbumin Triglycerides Cholesterol LDL Cholesterol Direct HDL Cholesterol 25-OH Vitamin D Total PTH Intact Urine pH Urine WBC (Auto) Urine Creatinine Urine Total Protein Fluid Total Protein Vancomycin Trough Rheumatoid Factor Complement C4 Miscellaneous Test Crossmatch 01/04/17 01/04/17 01/04/17 12:46 15:27 17:11 WBC RBC Hgb Hct MCV MCH MCHC RDW Plt Count Lymph % (Auto) Benzie % (Auto) Lymph # Benzie # Baso # Seg Neutrophils % Seg Neuts % (Manual) Lymphocytes % (Manual) Monocytes % (Manual) Eosinophils % (Manual) Basophils % (Manual) Nucleated RBC % Seg Neutrophils # Seg Neutrophils # Man Lymphocytes # (Manual) Monocytes # (Manual) Eosinophils # (Manual) Basophils # (Manual) PT INR Fibrinogen dRVVT Confirm Interp Factor V Activity POC ABG pH POC ABG pCO2 POC ABG pO2 ABG pO2 ABG HCO3 ABG Base Excess ABG Hemoglobin Oxyhemoglobin Sodium Potassium Chloride Carbon Dioxide BUN 43 H Creatinine Glucose 124 H POC Glucose 159 H 125 H Lactic Acid Calcium 8.0 L Ionized Calcium Phosphorus 2.10 L Magnesium Direct Bilirubin AST ALT Alkaline Phosphatase Lactate Dehydrogenase Troponin T C-Reactive Protein Total Protein Albumin Prealbumin Triglycerides Cholesterol LDL Cholesterol Direct HDL Cholesterol 25-OH Vitamin D Total PTH Intact Urine pH Urine WBC (Auto) Urine Creatinine Urine Total Protein Fluid Total Protein Vancomycin Trough Rheumatoid Factor Complement C4 Miscellaneous Test Crossmatch 01/04/17 01/05/17 01/05/17 23:31 04:00 05:46 WBC RBC Hgb Hct MCV MCH MCHC RDW Plt Count Lymph % (Auto) Benzie % (Auto) Lymph # Benzie # Baso # Seg Neutrophils % Seg Neuts % (Manual) Lymphocytes % (Manual) Monocytes % (Manual) Eosinophils % (Manual) Basophils % (Manual) Nucleated RBC % Seg Neutrophils # Seg Neutrophils # Man Lymphocytes # (Manual) Monocytes # (Manual) Eosinophils # (Manual) Basophils # (Manual) PT INR Fibrinogen dRVVT Confirm Interp Factor V Activity POC ABG pH POC ABG pCO2 POC ABG pO2 ABG pO2 ABG HCO3 ABG Base Excess ABG Hemoglobin Oxyhemoglobin Sodium Potassium Chloride Carbon Dioxide BUN 52 H Creatinine 1.3 H Glucose 113 H POC Glucose 123 H 118 H Lactic Acid Calcium Ionized Calcium Phosphorus 2.40 L Magnesium Direct Bilirubin AST ALT Alkaline Phosphatase Lactate Dehydrogenase Troponin T C-Reactive Protein Total Protein Albumin Prealbumin Triglycerides Cholesterol LDL Cholesterol Direct HDL Cholesterol 25-OH Vitamin D Total PTH Intact Urine pH Urine WBC (Auto) Urine Creatinine Urine Total Protein Fluid Total Protein Vancomycin Trough Rheumatoid Factor Complement C4 Miscellaneous Test Crossmatch 01/05/17 01/05/17 01/05/17 11:41 17:48 23:27 WBC RBC Hgb Hct MCV MCH MCHC RDW Plt Count Lymph % (Auto) Benzie % (Auto) Lymph # Benzie # Baso # Seg Neutrophils % Seg Neuts % (Manual) Lymphocytes % (Manual) Monocytes % (Manual) Eosinophils % (Manual) Basophils % (Manual) Nucleated RBC % Seg Neutrophils # Seg Neutrophils # Man Lymphocytes # (Manual) Monocytes # (Manual) Eosinophils # (Manual) Basophils # (Manual) PT INR Fibrinogen dRVVT Confirm Interp Factor V Activity POC ABG pH POC ABG pCO2 POC ABG pO2 ABG pO2 ABG HCO3 ABG Base Excess ABG Hemoglobin Oxyhemoglobin Sodium Potassium Chloride Carbon Dioxide BUN Creatinine Glucose POC Glucose 163 H 142 H 155 H Lactic Acid Calcium Ionized Calcium Phosphorus Magnesium Direct Bilirubin AST ALT Alkaline Phosphatase Lactate Dehydrogenase Troponin T C-Reactive Protein Total Protein Albumin Prealbumin Triglycerides Cholesterol LDL Cholesterol Direct HDL Cholesterol 25-OH Vitamin D Total PTH Intact Urine pH Urine WBC (Auto) Urine Creatinine Urine Total Protein Fluid Total Protein Vancomycin Trough Rheumatoid Factor Complement C4 Miscellaneous Test Crossmatch 01/06/17 01/06/17 01/06/17 05:20 07:35 11:18 WBC RBC Hgb Hct MCV MCH MCHC RDW Plt Count Lymph % (Auto) Benzie % (Auto) Lymph # Benzie # Baso # Seg Neutrophils % Seg Neuts % (Manual) Lymphocytes % (Manual) Monocytes % (Manual) Eosinophils % (Manual) Basophils % (Manual) Nucleated RBC % Seg Neutrophils # Seg Neutrophils # Man Lymphocytes # (Manual) Monocytes # (Manual) Eosinophils # (Manual) Basophils # (Manual) PT INR Fibrinogen dRVVT Confirm Interp Factor V Activity POC ABG pH POC ABG pCO2 POC ABG pO2 ABG pO2 ABG HCO3 ABG Base Excess ABG Hemoglobin Oxyhemoglobin Sodium Potassium Chloride Carbon Dioxide BUN 74 H Creatinine 1.6 H Glucose 135 H POC Glucose 108 H 149 H Lactic Acid Calcium Ionized Calcium Phosphorus Magnesium Direct Bilirubin AST ALT Alkaline Phosphatase Lactate Dehydrogenase Troponin T C-Reactive Protein Total Protein Albumin Prealbumin Triglycerides Cholesterol LDL Cholesterol Direct HDL Cholesterol 25-OH Vitamin D Total PTH Intact Urine pH Urine WBC (Auto) Urine Creatinine Urine Total Protein Fluid Total Protein Vancomycin Trough Rheumatoid Factor Complement C4 Miscellaneous Test Crossmatch 01/06/17 01/07/17 01/07/17 17:17 00:23 05:31 WBC RBC Hgb Hct MCV MCH MCHC RDW Plt Count Lymph % (Auto) Benzie % (Auto) Lymph # Benzie # Baso # Seg Neutrophils % Seg Neuts % (Manual) Lymphocytes % (Manual) Monocytes % (Manual) Eosinophils % (Manual) Basophils % (Manual) Nucleated RBC % Seg Neutrophils # Seg Neutrophils # Man Lymphocytes # (Manual) Monocytes # (Manual) Eosinophils # (Manual) Basophils # (Manual) PT INR Fibrinogen dRVVT Confirm Interp Factor V Activity POC ABG pH POC ABG pCO2 POC ABG pO2 ABG pO2 ABG HCO3 ABG Base Excess ABG Hemoglobin Oxyhemoglobin Sodium Potassium Chloride Carbon Dioxide BUN Creatinine Glucose POC Glucose 146 H 165 H 153 H Lactic Acid Calcium Ionized Calcium Phosphorus Magnesium Direct Bilirubin AST ALT Alkaline Phosphatase Lactate Dehydrogenase Troponin T C-Reactive Protein Total Protein Albumin Prealbumin Triglycerides Cholesterol LDL Cholesterol Direct HDL Cholesterol 25-OH Vitamin D Total PTH Intact Urine pH Urine WBC (Auto) Urine Creatinine Urine Total Protein Fluid Total Protein Vancomycin Trough Rheumatoid Factor Complement C4 Miscellaneous Test Crossmatch 01/07/17 01/07/17 01/07/17 06:00 11:39 17:11 WBC RBC Hgb Hct MCV MCH MCHC RDW Plt Count Lymph % (Auto) Benzie % (Auto) Lymph # Benzie # Baso # Seg Neutrophils % Seg Neuts % (Manual) Lymphocytes % (Manual) Monocytes % (Manual) Eosinophils % (Manual) Basophils % (Manual) Nucleated RBC % Seg Neutrophils # Seg Neutrophils # Man Lymphocytes # (Manual) Monocytes # (Manual) Eosinophils # (Manual) Basophils # (Manual) PT INR Fibrinogen dRVVT Confirm Interp Factor V Activity POC ABG pH POC ABG pCO2 POC ABG pO2 ABG pO2 ABG HCO3 ABG Base Excess ABG Hemoglobin Oxyhemoglobin Sodium Potassium Chloride Carbon Dioxide BUN 42 H Creatinine Glucose 175 H POC Glucose 163 H 163 H Lactic Acid Calcium Ionized Calcium Phosphorus 2.40 L D Magnesium Direct Bilirubin AST ALT Alkaline Phosphatase Lactate Dehydrogenase Troponin T C-Reactive Protein Total Protein Albumin Prealbumin Triglycerides Cholesterol LDL Cholesterol Direct HDL Cholesterol 25-OH Vitamin D Total PTH Intact Urine pH Urine WBC (Auto) Urine Creatinine Urine Total Protein Fluid Total Protein Vancomycin Trough Rheumatoid Factor Complement C4 Miscellaneous Test Crossmatch 01/07/17 01/08/17 01/08/17 23:40 05:00 05:00 WBC 27.4 H RBC 2.27 L Hgb 6.1 L Hct 20.4 L MCV MCH 27 L MCHC RDW 17.8 H Plt Count Lymph % (Auto) Benzie % (Auto) Lymph # Benzie # Baso # Seg Neutrophils % Seg Neuts % (Manual) Lymphocytes % (Manual) Monocytes % (Manual) Eosinophils % (Manual) Basophils % (Manual) Nucleated RBC % Seg Neutrophils # Seg Neutrophils # Man Lymphocytes # (Manual) Monocytes # (Manual) Eosinophils # (Manual) Basophils # (Manual) PT INR Fibrinogen dRVVT Confirm Interp Factor V Activity POC ABG pH POC ABG pCO2 POC ABG pO2 ABG pO2 ABG HCO3 ABG Base Excess ABG Hemoglobin Oxyhemoglobin Sodium Potassium Chloride Carbon Dioxide 16 L D BUN 62 H Creatinine 1.6 H D Glucose 103 H POC Glucose 135 H Lactic Acid Calcium Ionized Calcium Phosphorus Magnesium Direct Bilirubin AST ALT Alkaline Phosphatase Lactate Dehydrogenase Troponin T C-Reactive Protein Total Protein Albumin Prealbumin Triglycerides Cholesterol LDL Cholesterol Direct HDL Cholesterol 25-OH Vitamin D Total PTH Intact Urine pH Urine WBC (Auto) Urine Creatinine Urine Total Protein Fluid Total Protein Vancomycin Trough Rheumatoid Factor Complement C4 Miscellaneous Test Crossmatch 01/08/17 01/08/17 01/08/17 05:25 10:37 10:37 WBC RBC Hgb Hct MCV MCH MCHC RDW Plt Count Lymph % (Auto) Benzie % (Auto) Lymph # Benzie # Baso # Seg Neutrophils % Seg Neuts % (Manual) Lymphocytes % (Manual) Monocytes % (Manual) Eosinophils % (Manual) Basophils % (Manual) Nucleated RBC % Seg Neutrophils # Seg Neutrophils # Man Lymphocytes # (Manual) Monocytes # (Manual) Eosinophils # (Manual) Basophils # (Manual) PT INR Fibrinogen dRVVT Confirm Interp Factor V Activity POC ABG pH POC ABG pCO2 POC ABG pO2 ABG pO2 ABG HCO3 ABG Base Excess ABG Hemoglobin Oxyhemoglobin Sodium Potassium Chloride Carbon Dioxide BUN Creatinine Glucose POC Glucose 106 H Lactic Acid Calcium Ionized Calcium Phosphorus Magnesium Direct Bilirubin AST ALT Alkaline Phosphatase Lactate Dehydrogenase Troponin T C-Reactive Protein 24.40 H Total Protein Albumin Prealbumin Triglycerides Cholesterol LDL Cholesterol Direct HDL Cholesterol 25-OH Vitamin D Total PTH Intact Urine pH Urine WBC (Auto) Urine Creatinine Urine Total Protein Fluid Total Protein Vancomycin Trough Rheumatoid Factor Complement C4 Miscellaneous Test Crossmatch See Detail 01/08/17 01/08/17 01/08/17 10:37 11:33 15:15 WBC RBC Hgb Hct MCV MCH MCHC RDW Plt Count Lymph % (Auto) Benzie % (Auto) Lymph # Benzie # Baso # Seg Neutrophils % Seg Neuts % (Manual) Lymphocytes % (Manual) Monocytes % (Manual) Eosinophils % (Manual) Basophils % (Manual) Nucleated RBC % Seg Neutrophils # Seg Neutrophils # Man Lymphocytes # (Manual) Monocytes # (Manual) Eosinophils # (Manual) Basophils # (Manual) PT INR Fibrinogen dRVVT Confirm Interp Factor V Activity POC ABG pH POC ABG pCO2 POC ABG pO2 ABG pO2 ABG HCO3 ABG Base Excess ABG Hemoglobin Oxyhemoglobin Sodium Potassium Chloride Carbon Dioxide BUN Creatinine Glucose POC Glucose 157 H Lactic Acid 9.70 H* 9.10 H* Calcium Ionized Calcium Phosphorus Magnesium Direct Bilirubin AST ALT Alkaline Phosphatase Lactate Dehydrogenase Troponin T C-Reactive Protein Total Protein Albumin Prealbumin Triglycerides Cholesterol LDL Cholesterol Direct HDL Cholesterol 25-OH Vitamin D Total PTH Intact Urine pH Urine WBC (Auto) Urine Creatinine Urine Total Protein Fluid Total Protein Vancomycin Trough Rheumatoid Factor Complement C4 Miscellaneous Test Crossmatch 01/08/17 01/08/17 01/09/17 17:19 23:12 04:40 WBC RBC Hgb Hct MCV MCH MCHC RDW Plt Count Lymph % (Auto) Benzie % (Auto) Lymph # Benzie # Baso # Seg Neutrophils % Seg Neuts % (Manual) Lymphocytes % (Manual) Monocytes % (Manual) Eosinophils % (Manual) Basophils % (Manual) Nucleated RBC % Seg Neutrophils # Seg Neutrophils # Man Lymphocytes # (Manual) Monocytes # (Manual) Eosinophils # (Manual) Basophils # (Manual) PT INR Fibrinogen dRVVT Confirm Interp Factor V Activity POC ABG pH POC ABG pCO2 POC ABG pO2 ABG pO2 ABG HCO3 ABG Base Excess ABG Hemoglobin Oxyhemoglobin Sodium 147 H Potassium Chloride Carbon Dioxide BUN 82 H Creatinine 1.8 H Glucose 137 H POC Glucose 164 H 157 H Lactic Acid Calcium Ionized Calcium Phosphorus Magnesium Direct Bilirubin AST ALT Alkaline Phosphatase Lactate Dehydrogenase Troponin T C-Reactive Protein Total Protein Albumin Prealbumin Triglycerides Cholesterol LDL Cholesterol Direct HDL Cholesterol 25-OH Vitamin D Total PTH Intact Urine pH Urine WBC (Auto) Urine Creatinine Urine Total Protein Fluid Total Protein Vancomycin Trough Rheumatoid Factor Complement C4 Miscellaneous Test Crossmatch 01/09/17 01/09/17 01/09/17 05:42 08:22 10:57 WBC RBC Hgb Hct MCV MCH MCHC RDW Plt Count Lymph % (Auto) Benzie % (Auto) Lymph # Benzie # Baso # Seg Neutrophils % Seg Neuts % (Manual) Lymphocytes % (Manual) Monocytes % (Manual) Eosinophils % (Manual) Basophils % (Manual) Nucleated RBC % Seg Neutrophils # Seg Neutrophils # Man Lymphocytes # (Manual) Monocytes # (Manual) Eosinophils # (Manual) Basophils # (Manual) PT INR Fibrinogen dRVVT Confirm Interp Factor V Activity POC ABG pH POC ABG pCO2 POC ABG pO2 ABG pO2 ABG HCO3 ABG Base Excess ABG Hemoglobin Oxyhemoglobin Sodium Potassium Chloride Carbon Dioxide BUN Creatinine Glucose POC Glucose 156 H 122 H Lactic Acid 2.30 H* Calcium Ionized Calcium Phosphorus Magnesium Direct Bilirubin AST ALT Alkaline Phosphatase Lactate Dehydrogenase Troponin T C-Reactive Protein Total Protein Albumin Prealbumin Triglycerides Cholesterol LDL Cholesterol Direct HDL Cholesterol 25-OH Vitamin D Total PTH Intact Urine pH Urine WBC (Auto) Urine Creatinine Urine Total Protein Fluid Total Protein Vancomycin Trough Rheumatoid Factor Complement C4 Miscellaneous Test Crossmatch 01/09/17 01/09/17 01/09/17 13:30 17:14 18:45 WBC RBC Hgb Hct MCV MCH MCHC RDW Plt Count Lymph % (Auto) Benzie % (Auto) Lymph # Benzie # Baso # Seg Neutrophils % Seg Neuts % (Manual) Lymphocytes % (Manual) Monocytes % (Manual) Eosinophils % (Manual) Basophils % (Manual) Nucleated RBC % Seg Neutrophils # Seg Neutrophils # Man Lymphocytes # (Manual) Monocytes # (Manual) Eosinophils # (Manual) Basophils # (Manual) PT INR Fibrinogen dRVVT Confirm Interp Factor V Activity POC ABG pH POC ABG pCO2 POC ABG pO2 ABG pO2 ABG HCO3 ABG Base Excess ABG Hemoglobin Oxyhemoglobin Sodium Potassium Chloride Carbon Dioxide BUN Creatinine Glucose POC Glucose 127 H Lactic Acid Calcium Ionized Calcium Phosphorus Magnesium Direct Bilirubin AST ALT Alkaline Phosphatase Lactate Dehydrogenase Troponin T C-Reactive Protein 24.70 H Total Protein Albumin Prealbumin Triglycerides Cholesterol LDL Cholesterol Direct HDL Cholesterol 25-OH Vitamin D Total PTH Intact Urine pH Urine WBC (Auto) Urine Creatinine Urine Total Protein Fluid Total Protein Vancomycin Trough Rheumatoid Factor Complement C4 Miscellaneous Test Flexitest 1 H Crossmatch 01/10/17 01/10/17 01/10/17 01:21 04:00 04:00 WBC 18.1 H RBC 3.22 L Hgb 8.8 L Hct 27.0 L D MCV MCH 27 L MCHC RDW 17.0 H Plt Count Lymph % (Auto) Benzie % (Auto) Lymph # Benzie # Baso # Seg Neutrophils % Seg Neuts % (Manual) Lymphocytes % (Manual) Monocytes % (Manual) Eosinophils % (Manual) Basophils % (Manual) Nucleated RBC % Seg Neutrophils # Seg Neutrophils # Man Lymphocytes # (Manual) Monocytes # (Manual) Eosinophils # (Manual) Basophils # (Manual) PT INR Fibrinogen dRVVT Confirm Interp Factor V Activity POC ABG pH POC ABG pCO2 POC ABG pO2 ABG pO2 ABG HCO3 ABG Base Excess ABG Hemoglobin Oxyhemoglobin Sodium Potassium Chloride Carbon Dioxide BUN 59 H Creatinine 1.3 H Glucose 122 H POC Glucose 160 H Lactic Acid Calcium Ionized Calcium Phosphorus Magnesium Direct Bilirubin AST ALT Alkaline Phosphatase Lactate Dehydrogenase Troponin T C-Reactive Protein Total Protein Albumin Prealbumin Triglycerides Cholesterol LDL Cholesterol Direct HDL Cholesterol 25-OH Vitamin D Total PTH Intact Urine pH Urine WBC (Auto) Urine Creatinine Urine Total Protein Fluid Total Protein Vancomycin Trough Rheumatoid Factor Complement C4 Miscellaneous Test Crossmatch 01/10/17 01/10/17 01/10/17 05:36 12:14 17:55 WBC RBC Hgb Hct MCV MCH MCHC RDW Plt Count Lymph % (Auto) Benzie % (Auto) Lymph # Benzie # Baso # Seg Neutrophils % Seg Neuts % (Manual) Lymphocytes % (Manual) Monocytes % (Manual) Eosinophils % (Manual) Basophils % (Manual) Nucleated RBC % Seg Neutrophils # Seg Neutrophils # Man Lymphocytes # (Manual) Monocytes # (Manual) Eosinophils # (Manual) Basophils # (Manual) PT INR Fibrinogen dRVVT Confirm Interp Factor V Activity POC ABG pH POC ABG pCO2 POC ABG pO2 ABG pO2 ABG HCO3 ABG Base Excess ABG Hemoglobin Oxyhemoglobin Sodium Potassium Chloride Carbon Dioxide BUN Creatinine Glucose POC Glucose 163 H 120 H 144 H Lactic Acid Calcium Ionized Calcium Phosphorus Magnesium Direct Bilirubin AST ALT Alkaline Phosphatase Lactate Dehydrogenase Troponin T C-Reactive Protein Total Protein Albumin Prealbumin Triglycerides Cholesterol LDL Cholesterol Direct HDL Cholesterol 25-OH Vitamin D Total PTH Intact Urine pH Urine WBC (Auto) Urine Creatinine Urine Total Protein Fluid Total Protein Vancomycin Trough Rheumatoid Factor Complement C4 Miscellaneous Test Crossmatch 01/11/17 01/11/17 01/11/17 00:09 04:00 04:00 WBC 15.8 H RBC 3.04 L Hgb 8.2 L Hct 25.5 L MCV MCH 27 L MCHC RDW 17.3 H Plt Count Lymph % (Auto) Benzie % (Auto) Lymph # Benzie # Baso # Seg Neutrophils % Seg Neuts % (Manual) Lymphocytes % (Manual) Monocytes % (Manual) Eosinophils % (Manual) Basophils % (Manual) Nucleated RBC % Seg Neutrophils # Seg Neutrophils # Man Lymphocytes # (Manual) Monocytes # (Manual) Eosinophils # (Manual) Basophils # (Manual) PT INR Fibrinogen dRVVT Confirm Interp Factor V Activity POC ABG pH POC ABG pCO2 POC ABG pO2 ABG pO2 ABG HCO3 ABG Base Excess ABG Hemoglobin Oxyhemoglobin Sodium Potassium Chloride Carbon Dioxide BUN 78 H Creatinine 1.6 H Glucose 109 H POC Glucose 122 H Lactic Acid Calcium Ionized Calcium Phosphorus Magnesium Direct Bilirubin AST ALT Alkaline Phosphatase Lactate Dehydrogenase Troponin T C-Reactive Protein Total Protein Albumin Prealbumin Triglycerides Cholesterol LDL Cholesterol Direct HDL Cholesterol 25-OH Vitamin D Total PTH Intact Urine pH Urine WBC (Auto) Urine Creatinine Urine Total Protein Fluid Total Protein Vancomycin Trough Rheumatoid Factor Complement C4 Miscellaneous Test Crossmatch 01/11/17 01/11/17 01/11/17 12:46 18:23 23:42 WBC RBC Hgb Hct MCV MCH MCHC RDW Plt Count Lymph % (Auto) Benzie % (Auto) Lymph # Benzie # Baso # Seg Neutrophils % Seg Neuts % (Manual) Lymphocytes % (Manual) Monocytes % (Manual) Eosinophils % (Manual) Basophils % (Manual) Nucleated RBC % Seg Neutrophils # Seg Neutrophils # Man Lymphocytes # (Manual) Monocytes # (Manual) Eosinophils # (Manual) Basophils # (Manual) PT INR Fibrinogen dRVVT Confirm Interp Factor V Activity POC ABG pH POC ABG pCO2 POC ABG pO2 ABG pO2 ABG HCO3 ABG Base Excess ABG Hemoglobin Oxyhemoglobin Sodium Potassium Chloride Carbon Dioxide BUN Creatinine Glucose POC Glucose 148 H 125 H 124 H Lactic Acid Calcium Ionized Calcium Phosphorus Magnesium Direct Bilirubin AST ALT Alkaline Phosphatase Lactate Dehydrogenase Troponin T C-Reactive Protein Total Protein Albumin Prealbumin Triglycerides Cholesterol LDL Cholesterol Direct HDL Cholesterol 25-OH Vitamin D Total PTH Intact Urine pH Urine WBC (Auto) Urine Creatinine Urine Total Protein Fluid Total Protein Vancomycin Trough Rheumatoid Factor Complement C4 Miscellaneous Test Crossmatch 01/12/17 01/12/17 01/12/17 04:30 04:30 05:47 WBC 15.8 H RBC 3.31 L Hgb 8.9 L Hct 27.9 L MCV MCH 27 L MCHC RDW 17.4 H Plt Count Lymph % (Auto) Benzie % (Auto) Lymph # Benzie # Baso # Seg Neutrophils % Seg Neuts % (Manual) Lymphocytes % (Manual) Monocytes % (Manual) Eosinophils % (Manual) Basophils % (Manual) Nucleated RBC % Seg Neutrophils # Seg Neutrophils # Man Lymphocytes # (Manual) Monocytes # (Manual) Eosinophils # (Manual) Basophils # (Manual) PT INR Fibrinogen dRVVT Confirm Interp Factor V Activity POC ABG pH POC ABG pCO2 POC ABG pO2 ABG pO2 ABG HCO3 ABG Base Excess ABG Hemoglobin Oxyhemoglobin Sodium Potassium Chloride Carbon Dioxide BUN 57 H Creatinine Glucose 121 H POC Glucose 110 H Lactic Acid Calcium Ionized Calcium Phosphorus 2.10 L Magnesium Direct Bilirubin AST ALT Alkaline Phosphatase Lactate Dehydrogenase Troponin T C-Reactive Protein Total Protein Albumin Prealbumin Triglycerides Cholesterol LDL Cholesterol Direct HDL Cholesterol 25-OH Vitamin D Total PTH Intact Urine pH Urine WBC (Auto) Urine Creatinine Urine Total Protein Fluid Total Protein Vancomycin Trough Rheumatoid Factor Complement C4 Miscellaneous Test Crossmatch 01/12/17 01/12/17 01/12/17 11:35 17:45 23:14 WBC RBC Hgb Hct MCV MCH MCHC RDW Plt Count Lymph % (Auto) Benzie % (Auto) Lymph # Benzie # Baso # Seg Neutrophils % Seg Neuts % (Manual) Lymphocytes % (Manual) Monocytes % (Manual) Eosinophils % (Manual) Basophils % (Manual) Nucleated RBC % Seg Neutrophils # Seg Neutrophils # Man Lymphocytes # (Manual) Monocytes # (Manual) Eosinophils # (Manual) Basophils # (Manual) PT INR Fibrinogen dRVVT Confirm Interp Factor V Activity POC ABG pH POC ABG pCO2 POC ABG pO2 ABG pO2 ABG HCO3 ABG Base Excess ABG Hemoglobin Oxyhemoglobin Sodium Potassium Chloride Carbon Dioxide BUN Creatinine Glucose POC Glucose 146 H 117 H 123 H Lactic Acid Calcium Ionized Calcium Phosphorus Magnesium Direct Bilirubin AST ALT Alkaline Phosphatase Lactate Dehydrogenase Troponin T C-Reactive Protein Total Protein Albumin Prealbumin Triglycerides Cholesterol LDL Cholesterol Direct HDL Cholesterol 25-OH Vitamin D Total PTH Intact Urine pH Urine WBC (Auto) Urine Creatinine Urine Total Protein Fluid Total Protein Vancomycin Trough Rheumatoid Factor Complement C4 Miscellaneous Test Crossmatch 01/13/17 01/13/17 01/13/17 05:32 06:00 12:10 WBC RBC Hgb Hct MCV MCH MCHC RDW Plt Count Lymph % (Auto) Benzie % (Auto) Lymph # Benzie # Baso # Seg Neutrophils % Seg Neuts % (Manual) Lymphocytes % (Manual) Monocytes % (Manual) Eosinophils % (Manual) Basophils % (Manual) Nucleated RBC % Seg Neutrophils # Seg Neutrophils # Man Lymphocytes # (Manual) Monocytes # (Manual) Eosinophils # (Manual) Basophils # (Manual) PT INR Fibrinogen dRVVT Confirm Interp Factor V Activity POC ABG pH POC ABG pCO2 POC ABG pO2 ABG pO2 ABG HCO3 ABG Base Excess ABG Hemoglobin Oxyhemoglobin Sodium Potassium Chloride Carbon Dioxide BUN 80 H Creatinine 1.4 H Glucose 106 H POC Glucose 106 H Lactic Acid Calcium Ionized Calcium Phosphorus Magnesium Direct Bilirubin AST ALT Alkaline Phosphatase Lactate Dehydrogenase Troponin T C-Reactive Protein Total Protein Albumin Prealbumin Triglycerides Cholesterol LDL Cholesterol Direct HDL Cholesterol 25-OH Vitamin D Total PTH Intact Urine pH Urine WBC (Auto) Urine Creatinine Urine Total Protein Fluid Total Protein 3.0 L Vancomycin Trough Rheumatoid Factor Complement C4 Miscellaneous Test Crossmatch 01/13/17 01/13/17 01/13/17 12:17 15:50 17:30 WBC RBC Hgb Hct MCV MCH MCHC RDW Plt Count Lymph % (Auto) Benzie % (Auto) Lymph # Benzie # Baso # Seg Neutrophils % Seg Neuts % (Manual) Lymphocytes % (Manual) Monocytes % (Manual) Eosinophils % (Manual) Basophils % (Manual) Nucleated RBC % Seg Neutrophils # Seg Neutrophils # Man Lymphocytes # (Manual) Monocytes # (Manual) Eosinophils # (Manual) Basophils # (Manual) PT 15.4 H INR 1.16 H Fibrinogen dRVVT Confirm Interp Factor V Activity POC ABG pH POC ABG pCO2 POC ABG pO2 ABG pO2 ABG HCO3 ABG Base Excess ABG Hemoglobin Oxyhemoglobin Sodium Potassium Chloride Carbon Dioxide BUN Creatinine Glucose POC Glucose 168 H 110 H Lactic Acid Calcium Ionized Calcium Phosphorus Magnesium Direct Bilirubin AST ALT Alkaline Phosphatase Lactate Dehydrogenase Troponin T C-Reactive Protein Total Protein Albumin Prealbumin Triglycerides Cholesterol LDL Cholesterol Direct HDL Cholesterol 25-OH Vitamin D Total PTH Intact Urine pH Urine WBC (Auto) Urine Creatinine Urine Total Protein Fluid Total Protein Vancomycin Trough Rheumatoid Factor Complement C4 Miscellaneous Test Crossmatch 01/13/17 01/14/17 01/14/17 23:42 05:24 05:30 WBC RBC Hgb Hct MCV MCH MCHC RDW Plt Count Lymph % (Auto) Benzie % (Auto) Lymph # Benzie # Baso # Seg Neutrophils % Seg Neuts % (Manual) Lymphocytes % (Manual) Monocytes % (Manual) Eosinophils % (Manual) Basophils % (Manual) Nucleated RBC % Seg Neutrophils # Seg Neutrophils # Man Lymphocytes # (Manual) Monocytes # (Manual) Eosinophils # (Manual) Basophils # (Manual) PT INR Fibrinogen dRVVT Confirm Interp Factor V Activity POC ABG pH POC ABG pCO2 POC ABG pO2 ABG pO2 ABG HCO3 ABG Base Excess ABG Hemoglobin Oxyhemoglobin Sodium Potassium Chloride Carbon Dioxide BUN 58 H Creatinine Glucose 114 H POC Glucose 155 H 121 H Lactic Acid Calcium Ionized Calcium Phosphorus Magnesium Direct Bilirubin AST ALT Alkaline Phosphatase Lactate Dehydrogenase Troponin T C-Reactive Protein Total Protein Albumin Prealbumin Triglycerides Cholesterol LDL Cholesterol Direct HDL Cholesterol 25-OH Vitamin D Total PTH Intact Urine pH Urine WBC (Auto) Urine Creatinine Urine Total Protein Fluid Total Protein Vancomycin Trough Rheumatoid Factor Complement C4 Miscellaneous Test Crossmatch 01/14/17 01/14/17 01/15/17 12:48 17:36 00:15 WBC RBC Hgb Hct MCV MCH MCHC RDW Plt Count Lymph % (Auto) Benzie % (Auto) Lymph # Benzie # Baso # Seg Neutrophils % Seg Neuts % (Manual) Lymphocytes % (Manual) Monocytes % (Manual) Eosinophils % (Manual) Basophils % (Manual) Nucleated RBC % Seg Neutrophils # Seg Neutrophils # Man Lymphocytes # (Manual) Monocytes # (Manual) Eosinophils # (Manual) Basophils # (Manual) PT INR Fibrinogen dRVVT Confirm Interp Factor V Activity POC ABG pH POC ABG pCO2 POC ABG pO2 ABG pO2 ABG HCO3 ABG Base Excess ABG Hemoglobin Oxyhemoglobin Sodium Potassium Chloride Carbon Dioxide BUN Creatinine Glucose POC Glucose 130 H 135 H 132 H Lactic Acid Calcium Ionized Calcium Phosphorus Magnesium Direct Bilirubin AST ALT Alkaline Phosphatase Lactate Dehydrogenase Troponin T C-Reactive Protein Total Protein Albumin Prealbumin Triglycerides Cholesterol LDL Cholesterol Direct HDL Cholesterol 25-OH Vitamin D Total PTH Intact Urine pH Urine WBC (Auto) Urine Creatinine Urine Total Protein Fluid Total Protein Vancomycin Trough Rheumatoid Factor Complement C4 Miscellaneous Test Crossmatch 01/15/17 01/15/17 01/15/17 05:01 11:55 12:45 WBC 16.2 H RBC 3.00 L Hgb 8.1 L Hct 25.4 L MCV MCH 27 L MCHC RDW 17.6 H Plt Count Lymph % (Auto) 11.7 L Benzie % (Auto) 7.8 H Lymph # Benzie # 1.3 H Baso # Seg Neutrophils % 80.1 H Seg Neuts % (Manual) Lymphocytes % (Manual) Monocytes % (Manual) Eosinophils % (Manual) Basophils % (Manual) Nucleated RBC % Seg Neutrophils # 13.0 H Seg Neutrophils # Man Lymphocytes # (Manual) Monocytes # (Manual) Eosinophils # (Manual) Basophils # (Manual) PT INR Fibrinogen dRVVT Confirm Interp Factor V Activity POC ABG pH POC ABG pCO2 POC ABG pO2 ABG pO2 ABG HCO3 ABG Base Excess ABG Hemoglobin Oxyhemoglobin Sodium Potassium Chloride Carbon Dioxide BUN Creatinine Glucose POC Glucose 126 H 125 H Lactic Acid Calcium Ionized Calcium Phosphorus Magnesium Direct Bilirubin AST ALT Alkaline Phosphatase Lactate Dehydrogenase Troponin T C-Reactive Protein Total Protein Albumin Prealbumin Triglycerides Cholesterol LDL Cholesterol Direct HDL Cholesterol 25-OH Vitamin D Total PTH Intact Urine pH Urine WBC (Auto) Urine Creatinine Urine Total Protein Fluid Total Protein Vancomycin Trough Rheumatoid Factor Complement C4 Miscellaneous Test Crossmatch 01/15/17 01/15/17 01/15/17 12:45 17:31 23:39 WBC RBC Hgb Hct MCV MCH MCHC RDW Plt Count Lymph % (Auto) Benzie % (Auto) Lymph # Benzie # Baso # Seg Neutrophils % Seg Neuts % (Manual) Lymphocytes % (Manual) Monocytes % (Manual) Eosinophils % (Manual) Basophils % (Manual) Nucleated RBC % Seg Neutrophils # Seg Neutrophils # Man Lymphocytes # (Manual) Monocytes # (Manual) Eosinophils # (Manual) Basophils # (Manual) PT INR Fibrinogen dRVVT Confirm Interp Factor V Activity POC ABG pH POC ABG pCO2 POC ABG pO2 ABG pO2 ABG HCO3 ABG Base Excess ABG Hemoglobin Oxyhemoglobin Sodium 136 L Potassium Chloride Carbon Dioxide BUN 87 H Creatinine 1.7 H Glucose 108 H POC Glucose 129 H 112 H Lactic Acid Calcium Ionized Calcium Phosphorus Magnesium Direct Bilirubin AST ALT Alkaline Phosphatase Lactate Dehydrogenase Troponin T C-Reactive Protein Total Protein Albumin Prealbumin Triglycerides Cholesterol LDL Cholesterol Direct HDL Cholesterol 25-OH Vitamin D Total PTH Intact Urine pH Urine WBC (Auto) Urine Creatinine Urine Total Protein Fluid Total Protein Vancomycin Trough Rheumatoid Factor Complement C4 Miscellaneous Test Crossmatch 01/16/17 01/16/17 01/16/17 05:23 11:42 12:32 WBC RBC Hgb Hct MCV MCH MCHC RDW Plt Count Lymph % (Auto) Benzie % (Auto) Lymph # Benzie # Baso # Seg Neutrophils % Seg Neuts % (Manual) Lymphocytes % (Manual) Monocytes % (Manual) Eosinophils % (Manual) Basophils % (Manual) Nucleated RBC % Seg Neutrophils # Seg Neutrophils # Man Lymphocytes # (Manual) Monocytes # (Manual) Eosinophils # (Manual) Basophils # (Manual) PT INR Fibrinogen dRVVT Confirm Interp Factor V Activity POC ABG pH 7.499 H POC ABG pCO2 30.9 L POC ABG pO2 51 L ABG pO2 ABG HCO3 ABG Base Excess ABG Hemoglobin Oxyhemoglobin Sodium Potassium Chloride Carbon Dioxide BUN Creatinine Glucose POC Glucose 118 H 133 H Lactic Acid Calcium Ionized Calcium Phosphorus Magnesium Direct Bilirubin AST ALT Alkaline Phosphatase Lactate Dehydrogenase Troponin T C-Reactive Protein Total Protein Albumin Prealbumin Triglycerides Cholesterol LDL Cholesterol Direct HDL Cholesterol 25-OH Vitamin D Total PTH Intact Urine pH Urine WBC (Auto) Urine Creatinine Urine Total Protein Fluid Total Protein Vancomycin Trough Rheumatoid Factor Complement C4 Miscellaneous Test Crossmatch 01/16/17 01/16/17 01/16/17 17:52 23:57 Unknown WBC RBC Hgb Hct MCV MCH MCHC RDW Plt Count Lymph % (Auto) Benzie % (Auto) Lymph # Benzie # Baso # Seg Neutrophils % Seg Neuts % (Manual) Lymphocytes % (Manual) Monocytes % (Manual) Eosinophils % (Manual) Basophils % (Manual) Nucleated RBC % Seg Neutrophils # Seg Neutrophils # Man Lymphocytes # (Manual) Monocytes # (Manual) Eosinophils # (Manual) Basophils # (Manual) PT INR Fibrinogen dRVVT Confirm Interp Factor V Activity POC ABG pH POC ABG pCO2 POC ABG pO2 ABG pO2 ABG HCO3 ABG Base Excess ABG Hemoglobin Oxyhemoglobin Sodium 135 L Potassium Chloride Carbon Dioxide BUN 101 H Creatinine 1.8 H Glucose 117 H POC Glucose 130 H 143 H Lactic Acid Calcium Ionized Calcium Phosphorus 5.80 H Magnesium Direct Bilirubin AST ALT Alkaline Phosphatase Lactate Dehydrogenase Troponin T C-Reactive Protein Total Protein Albumin Prealbumin Triglycerides Cholesterol LDL Cholesterol Direct HDL Cholesterol 25-OH Vitamin D Total PTH Intact Urine pH Urine WBC (Auto) Urine Creatinine Urine Total Protein Fluid Total Protein Vancomycin Trough Rheumatoid Factor Complement C4 Miscellaneous Test Crossmatch 01/17/17 01/17/17 01/17/17 05:30 05:46 11:49 WBC RBC Hgb Hct MCV MCH MCHC RDW Plt Count Lymph % (Auto) Benzie % (Auto) Lymph # Benzie # Baso # Seg Neutrophils % Seg Neuts % (Manual) Lymphocytes % (Manual) Monocytes % (Manual) Eosinophils % (Manual) Basophils % (Manual) Nucleated RBC % Seg Neutrophils # Seg Neutrophils # Man Lymphocytes # (Manual) Monocytes # (Manual) Eosinophils # (Manual) Basophils # (Manual) PT INR Fibrinogen dRVVT Confirm Interp Factor V Activity POC ABG pH POC ABG pCO2 POC ABG pO2 ABG pO2 ABG HCO3 ABG Base Excess ABG Hemoglobin Oxyhemoglobin Sodium 134 L Potassium Chloride 95.8 L Carbon Dioxide BUN 66 H Creatinine 1.3 H Glucose 138 H POC Glucose 147 H 124 H Lactic Acid Calcium Ionized Calcium Phosphorus Magnesium Direct Bilirubin AST ALT Alkaline Phosphatase 254 H Lactate Dehydrogenase Troponin T C-Reactive Protein Total Protein Albumin 1.3 L Prealbumin Triglycerides Cholesterol LDL Cholesterol Direct HDL Cholesterol 25-OH Vitamin D Total PTH Intact Urine pH Urine WBC (Auto) Urine Creatinine Urine Total Protein Fluid Total Protein Vancomycin Trough Rheumatoid Factor Complement C4 Miscellaneous Test Crossmatch 01/17/17 01/17/17 01/18/17 17:30 23:41 05:15 WBC RBC Hgb Hct MCV MCH MCHC RDW Plt Count Lymph % (Auto) Benzie % (Auto) Lymph # Benzie # Baso # Seg Neutrophils % Seg Neuts % (Manual) Lymphocytes % (Manual) Monocytes % (Manual) Eosinophils % (Manual) Basophils % (Manual) Nucleated RBC % Seg Neutrophils # Seg Neutrophils # Man Lymphocytes # (Manual) Monocytes # (Manual) Eosinophils # (Manual) Basophils # (Manual) PT INR Fibrinogen dRVVT Confirm Interp Factor V Activity POC ABG pH POC ABG pCO2 POC ABG pO2 ABG pO2 ABG HCO3 ABG Base Excess ABG Hemoglobin Oxyhemoglobin Sodium Potassium Chloride Carbon Dioxide BUN 89 H Creatinine 1.7 H Glucose 118 H POC Glucose 137 H 119 H Lactic Acid Calcium Ionized Calcium Phosphorus Magnesium Direct Bilirubin AST ALT Alkaline Phosphatase Lactate Dehydrogenase Troponin T C-Reactive Protein Total Protein Albumin Prealbumin Triglycerides Cholesterol LDL Cholesterol Direct HDL Cholesterol 25-OH Vitamin D Total PTH Intact Urine pH Urine WBC (Auto) Urine Creatinine Urine Total Protein Fluid Total Protein Vancomycin Trough Rheumatoid Factor Complement C4 Miscellaneous Test Crossmatch 01/18/17 01/18/17 01/18/17 05:19 12:16 18:11 WBC RBC Hgb Hct MCV MCH MCHC RDW Plt Count Lymph % (Auto) Benzie % (Auto) Lymph # Benzie # Baso # Seg Neutrophils % Seg Neuts % (Manual) Lymphocytes % (Manual) Monocytes % (Manual) Eosinophils % (Manual) Basophils % (Manual) Nucleated RBC % Seg Neutrophils # Seg Neutrophils # Man Lymphocytes # (Manual) Monocytes # (Manual) Eosinophils # (Manual) Basophils # (Manual) PT INR Fibrinogen dRVVT Confirm Interp Factor V Activity POC ABG pH POC ABG pCO2 POC ABG pO2 ABG pO2 ABG HCO3 ABG Base Excess ABG Hemoglobin Oxyhemoglobin Sodium Potassium Chloride Carbon Dioxide BUN Creatinine Glucose POC Glucose 134 H 188 H 113 H Lactic Acid Calcium Ionized Calcium Phosphorus Magnesium Direct Bilirubin AST ALT Alkaline Phosphatase Lactate Dehydrogenase Troponin T C-Reactive Protein Total Protein Albumin Prealbumin Triglycerides Cholesterol LDL Cholesterol Direct HDL Cholesterol 25-OH Vitamin D Total PTH Intact Urine pH Urine WBC (Auto) Urine Creatinine Urine Total Protein Fluid Total Protein Vancomycin Trough Rheumatoid Factor Complement C4 Miscellaneous Test Crossmatch 01/19/17 01/19/17 01/19/17 00:00 05:30 05:36 WBC RBC Hgb Hct MCV MCH MCHC RDW Plt Count Lymph % (Auto) Benzie % (Auto) Lymph # Benzie # Baso # Seg Neutrophils % Seg Neuts % (Manual) Lymphocytes % (Manual) Monocytes % (Manual) Eosinophils % (Manual) Basophils % (Manual) Nucleated RBC % Seg Neutrophils # Seg Neutrophils # Man Lymphocytes # (Manual) Monocytes # (Manual) Eosinophils # (Manual) Basophils # (Manual) PT INR Fibrinogen dRVVT Confirm Interp Factor V Activity POC ABG pH POC ABG pCO2 POC ABG pO2 ABG pO2 ABG HCO3 ABG Base Excess ABG Hemoglobin Oxyhemoglobin Sodium Potassium Chloride Carbon Dioxide BUN 70 H Creatinine 1.5 H Glucose 121 H POC Glucose 137 H 155 H Lactic Acid Calcium Ionized Calcium Phosphorus 2.10 L D Magnesium Direct Bilirubin AST ALT Alkaline Phosphatase Lactate Dehydrogenase Troponin T C-Reactive Protein Total Protein Albumin Prealbumin Triglycerides Cholesterol LDL Cholesterol Direct HDL Cholesterol 25-OH Vitamin D Total PTH Intact Urine pH Urine WBC (Auto) Urine Creatinine Urine Total Protein Fluid Total Protein Vancomycin Trough Rheumatoid Factor Complement C4 Miscellaneous Test Crossmatch 01/19/17 01/19/17 01/19/17 11:59 15:32 17:57 WBC RBC Hgb Hct MCV MCH MCHC RDW Plt Count Lymph % (Auto) Benzie % (Auto) Lymph # Benzie # Baso # Seg Neutrophils % Seg Neuts % (Manual) Lymphocytes % (Manual) Monocytes % (Manual) Eosinophils % (Manual) Basophils % (Manual) Nucleated RBC % Seg Neutrophils # Seg Neutrophils # Man Lymphocytes # (Manual) Monocytes # (Manual) Eosinophils # (Manual) Basophils # (Manual) PT INR Fibrinogen dRVVT Confirm Interp Factor V Activity POC ABG pH POC ABG pCO2 33.1 L POC ABG pO2 76 L ABG pO2 ABG HCO3 ABG Base Excess ABG Hemoglobin Oxyhemoglobin Sodium Potassium Chloride Carbon Dioxide BUN Creatinine Glucose POC Glucose 156 H 129 H Lactic Acid Calcium Ionized Calcium Phosphorus Magnesium Direct Bilirubin AST ALT Alkaline Phosphatase Lactate Dehydrogenase Troponin T C-Reactive Protein Total Protein Albumin Prealbumin Triglycerides Cholesterol LDL Cholesterol Direct HDL Cholesterol 25-OH Vitamin D Total PTH Intact Urine pH Urine WBC (Auto) Urine Creatinine Urine Total Protein Fluid Total Protein Vancomycin Trough Rheumatoid Factor Complement C4 Miscellaneous Test Crossmatch 01/19/17 01/20/17 01/20/17 23:49 04:00 05:21 WBC RBC Hgb Hct MCV MCH MCHC RDW Plt Count Lymph % (Auto) Benzie % (Auto) Lymph # Benzie # Baso # Seg Neutrophils % Seg Neuts % (Manual) Lymphocytes % (Manual) Monocytes % (Manual) Eosinophils % (Manual) Basophils % (Manual) Nucleated RBC % Seg Neutrophils # Seg Neutrophils # Man Lymphocytes # (Manual) Monocytes # (Manual) Eosinophils # (Manual) Basophils # (Manual) PT INR Fibrinogen dRVVT Confirm Interp Factor V Activity POC ABG pH POC ABG pCO2 POC ABG pO2 ABG pO2 ABG HCO3 ABG Base Excess ABG Hemoglobin Oxyhemoglobin Sodium Potassium Chloride Carbon Dioxide BUN 96 H Creatinine 1.9 H Glucose 106 H POC Glucose 125 H 130 H Lactic Acid Calcium Ionized Calcium Phosphorus 2.40 L Magnesium Direct Bilirubin AST ALT Alkaline Phosphatase Lactate Dehydrogenase Troponin T C-Reactive Protein Total Protein Albumin Prealbumin Triglycerides Cholesterol LDL Cholesterol Direct HDL Cholesterol 25-OH Vitamin D Total PTH Intact Urine pH Urine WBC (Auto) Urine Creatinine Urine Total Protein Fluid Total Protein Vancomycin Trough Rheumatoid Factor Complement C4 Miscellaneous Test Crossmatch 01/20/17 01/20/17 01/20/17 11:58 12:17 17:26 WBC RBC Hgb Hct MCV MCH MCHC RDW Plt Count Lymph % (Auto) Benzie % (Auto) Lymph # Benzie # Baso # Seg Neutrophils % Seg Neuts % (Manual) Lymphocytes % (Manual) Monocytes % (Manual) Eosinophils % (Manual) Basophils % (Manual) Nucleated RBC % Seg Neutrophils # Seg Neutrophils # Man Lymphocytes # (Manual) Monocytes # (Manual) Eosinophils # (Manual) Basophils # (Manual) PT INR Fibrinogen dRVVT Confirm Interp Factor V Activity POC ABG pH POC ABG pCO2 POC ABG pO2 70 L ABG pO2 ABG HCO3 ABG Base Excess ABG Hemoglobin Oxyhemoglobin Sodium Potassium Chloride Carbon Dioxide BUN Creatinine Glucose POC Glucose 118 H 154 H Lactic Acid Calcium Ionized Calcium Phosphorus Magnesium Direct Bilirubin AST ALT Alkaline Phosphatase Lactate Dehydrogenase Troponin T C-Reactive Protein Total Protein Albumin Prealbumin Triglycerides Cholesterol LDL Cholesterol Direct HDL Cholesterol 25-OH Vitamin D Total PTH Intact Urine pH Urine WBC (Auto) Urine Creatinine Urine Total Protein Fluid Total Protein Vancomycin Trough Rheumatoid Factor Complement C4 Miscellaneous Test Crossmatch 01/21/17 01/21/17 01/21/17 04:00 04:56 11:46 WBC RBC Hgb Hct MCV MCH MCHC RDW Plt Count Lymph % (Auto) Benzie % (Auto) Lymph # Benzie # Baso # Seg Neutrophils % Seg Neuts % (Manual) Lymphocytes % (Manual) Monocytes % (Manual) Eosinophils % (Manual) Basophils % (Manual) Nucleated RBC % Seg Neutrophils # Seg Neutrophils # Man Lymphocytes # (Manual) Monocytes # (Manual) Eosinophils # (Manual) Basophils # (Manual) PT INR Fibrinogen dRVVT Confirm Interp Factor V Activity POC ABG pH POC ABG pCO2 POC ABG pO2 ABG pO2 ABG HCO3 ABG Base Excess ABG Hemoglobin Oxyhemoglobin Sodium Potassium 3.5 L Chloride 97.4 L Carbon Dioxide BUN 66 H Creatinine 1.4 H Glucose POC Glucose 116 H 106 H Lactic Acid Calcium Ionized Calcium Phosphorus 2.10 L Magnesium Direct Bilirubin AST ALT Alkaline Phosphatase Lactate Dehydrogenase Troponin T C-Reactive Protein Total Protein Albumin Prealbumin Triglycerides Cholesterol LDL Cholesterol Direct HDL Cholesterol 25-OH Vitamin D Total PTH Intact Urine pH Urine WBC (Auto) Urine Creatinine Urine Total Protein Fluid Total Protein Vancomycin Trough Rheumatoid Factor Complement C4 Miscellaneous Test Crossmatch 01/21/17 01/21/17 01/22/17 17:25 23:49 05:35 WBC RBC Hgb Hct MCV MCH MCHC RDW Plt Count Lymph % (Auto) Benzie % (Auto) Lymph # Benzie # Baso # Seg Neutrophils % Seg Neuts % (Manual) Lymphocytes % (Manual) Monocytes % (Manual) Eosinophils % (Manual) Basophils % (Manual) Nucleated RBC % Seg Neutrophils # Seg Neutrophils # Man Lymphocytes # (Manual) Monocytes # (Manual) Eosinophils # (Manual) Basophils # (Manual) PT INR Fibrinogen dRVVT Confirm Interp Factor V Activity POC ABG pH POC ABG pCO2 POC ABG pO2 ABG pO2 ABG HCO3 ABG Base Excess ABG Hemoglobin Oxyhemoglobin Sodium Potassium Chloride Carbon Dioxide BUN Creatinine Glucose POC Glucose 106 H 133 H 107 H Lactic Acid Calcium Ionized Calcium Phosphorus Magnesium Direct Bilirubin AST ALT Alkaline Phosphatase Lactate Dehydrogenase Troponin T C-Reactive Protein Total Protein Albumin Prealbumin Triglycerides Cholesterol LDL Cholesterol Direct HDL Cholesterol 25-OH Vitamin D Total PTH Intact Urine pH Urine WBC (Auto) Urine Creatinine Urine Total Protein Fluid Total Protein Vancomycin Trough Rheumatoid Factor Complement C4 Miscellaneous Test Crossmatch 01/22/17 01/22/17 01/22/17 07:20 07:20 11:31 WBC RBC 2.75 L Hgb 7.5 L Hct 22.7 L MCV MCH 27 L MCHC RDW 17.5 H Plt Count Lymph % (Auto) Benzie % (Auto) Lymph # Benzie # Baso # Seg Neutrophils % Seg Neuts % (Manual) Lymphocytes % (Manual) Monocytes % (Manual) Eosinophils % (Manual) Basophils % (Manual) Nucleated RBC % Seg Neutrophils # Seg Neutrophils # Man Lymphocytes # (Manual) Monocytes # (Manual) Eosinophils # (Manual) Basophils # (Manual) PT INR Fibrinogen dRVVT Confirm Interp Factor V Activity POC ABG pH POC ABG pCO2 POC ABG pO2 ABG pO2 ABG HCO3 ABG Base Excess ABG Hemoglobin Oxyhemoglobin Sodium Potassium 3.3 L Chloride Carbon Dioxide BUN 42 H Creatinine Glucose 105 H POC Glucose 124 H Lactic Acid Calcium Ionized Calcium Phosphorus 1.70 L Magnesium Direct Bilirubin AST ALT Alkaline Phosphatase Lactate Dehydrogenase Troponin T C-Reactive Protein Total Protein Albumin Prealbumin Triglycerides Cholesterol LDL Cholesterol Direct HDL Cholesterol 25-OH Vitamin D Total PTH Intact Urine pH Urine WBC (Auto) Urine Creatinine Urine Total Protein Fluid Total Protein Vancomycin Trough Rheumatoid Factor Complement C4 Miscellaneous Test Crossmatch 01/22/17 01/22/17 01/23/17 17:16 23:35 05:35 WBC RBC Hgb Hct MCV MCH MCHC RDW Plt Count Lymph % (Auto) Benzie % (Auto) Lymph # Benzie # Baso # Seg Neutrophils % Seg Neuts % (Manual) Lymphocytes % (Manual) Monocytes % (Manual) Eosinophils % (Manual) Basophils % (Manual) Nucleated RBC % Seg Neutrophils # Seg Neutrophils # Man Lymphocytes # (Manual) Monocytes # (Manual) Eosinophils # (Manual) Basophils # (Manual) PT INR Fibrinogen dRVVT Confirm Interp Factor V Activity POC ABG pH POC ABG pCO2 POC ABG pO2 ABG pO2 ABG HCO3 ABG Base Excess ABG Hemoglobin Oxyhemoglobin Sodium Potassium Chloride Carbon Dioxide BUN Creatinine Glucose POC Glucose 135 H 120 H 111 H Lactic Acid Calcium Ionized Calcium Phosphorus Magnesium Direct Bilirubin AST ALT Alkaline Phosphatase Lactate Dehydrogenase Troponin T C-Reactive Protein Total Protein Albumin Prealbumin Triglycerides Cholesterol LDL Cholesterol Direct HDL Cholesterol 25-OH Vitamin D Total PTH Intact Urine pH Urine WBC (Auto) Urine Creatinine Urine Total Protein Fluid Total Protein Vancomycin Trough Rheumatoid Factor Complement C4 Miscellaneous Test Crossmatch 01/23/17 01/23/17 01/23/17 06:10 17:27 23:44 WBC RBC Hgb Hct MCV MCH MCHC RDW Plt Count Lymph % (Auto) Benzie % (Auto) Lymph # Benzie # Baso # Seg Neutrophils % Seg Neuts % (Manual) Lymphocytes % (Manual) Monocytes % (Manual) Eosinophils % (Manual) Basophils % (Manual) Nucleated RBC % Seg Neutrophils # Seg Neutrophils # Man Lymphocytes # (Manual) Monocytes # (Manual) Eosinophils # (Manual) Basophils # (Manual) PT INR Fibrinogen dRVVT Confirm Interp Factor V Activity POC ABG pH POC ABG pCO2 POC ABG pO2 ABG pO2 ABG HCO3 ABG Base Excess ABG Hemoglobin Oxyhemoglobin Sodium Potassium 3.3 L Chloride Carbon Dioxide BUN 66 H Creatinine 1.3 H Glucose 109 H POC Glucose 120 H 115 H Lactic Acid Calcium Ionized Calcium Phosphorus 2.20 L D Magnesium Direct Bilirubin AST ALT Alkaline Phosphatase Lactate Dehydrogenase Troponin T C-Reactive Protein Total Protein Albumin Prealbumin Triglycerides Cholesterol LDL Cholesterol Direct HDL Cholesterol 25-OH Vitamin D Total PTH Intact Urine pH Urine WBC (Auto) Urine Creatinine Urine Total Protein Fluid Total Protein Vancomycin Trough Rheumatoid Factor Complement C4 Miscellaneous Test Crossmatch 01/24/17 01/24/17 01/24/17 05:19 05:50 12:19 WBC RBC Hgb Hct MCV MCH MCHC RDW Plt Count Lymph % (Auto) Benzie % (Auto) Lymph # Benzie # Baso # Seg Neutrophils % Seg Neuts % (Manual) Lymphocytes % (Manual) Monocytes % (Manual) Eosinophils % (Manual) Basophils % (Manual) Nucleated RBC % Seg Neutrophils # Seg Neutrophils # Man Lymphocytes # (Manual) Monocytes # (Manual) Eosinophils # (Manual) Basophils # (Manual) PT INR Fibrinogen dRVVT Confirm Interp Factor V Activity POC ABG pH POC ABG pCO2 POC ABG pO2 ABG pO2 ABG HCO3 ABG Base Excess ABG Hemoglobin Oxyhemoglobin Sodium Potassium Chloride Carbon Dioxide BUN 47 H Creatinine Glucose 117 H POC Glucose 126 H 119 H Lactic Acid Calcium Ionized Calcium Phosphorus 2.30 L Magnesium 1.60 L Direct Bilirubin AST ALT Alkaline Phosphatase Lactate Dehydrogenase Troponin T C-Reactive Protein Total Protein Albumin Prealbumin Triglycerides Cholesterol LDL Cholesterol Direct HDL Cholesterol 25-OH Vitamin D Total PTH Intact Urine pH Urine WBC (Auto) Urine Creatinine Urine Total Protein Fluid Total Protein Vancomycin Trough Rheumatoid Factor Complement C4 Miscellaneous Test Crossmatch 01/24/17 01/25/17 01/25/17 17:08 00:37 04:00 WBC RBC Hgb Hct MCV MCH MCHC RDW Plt Count Lymph % (Auto) Benzie % (Auto) Lymph # Benzie # Baso # Seg Neutrophils % Seg Neuts % (Manual) Lymphocytes % (Manual) Monocytes % (Manual) Eosinophils % (Manual) Basophils % (Manual) Nucleated RBC % Seg Neutrophils # Seg Neutrophils # Man Lymphocytes # (Manual) Monocytes # (Manual) Eosinophils # (Manual) Basophils # (Manual) PT INR Fibrinogen dRVVT Confirm Interp Factor V Activity POC ABG pH POC ABG pCO2 POC ABG pO2 ABG pO2 ABG HCO3 ABG Base Excess ABG Hemoglobin Oxyhemoglobin Sodium Potassium Chloride Carbon Dioxide BUN 72 H Creatinine 1.3 H Glucose POC Glucose 127 H 110 H Lactic Acid Calcium Ionized Calcium Phosphorus Magnesium Direct Bilirubin AST ALT Alkaline Phosphatase Lactate Dehydrogenase Troponin T C-Reactive Protein Total Protein Albumin Prealbumin Triglycerides Cholesterol LDL Cholesterol Direct HDL Cholesterol 25-OH Vitamin D Total PTH Intact Urine pH Urine WBC (Auto) Urine Creatinine Urine Total Protein Fluid Total Protein Vancomycin Trough Rheumatoid Factor Complement C4 Miscellaneous Test Crossmatch 01/25/17 01/25/17 01/25/17 04:00 11:15 13:05 WBC RBC 2.49 L Hgb 6.7 L Hct 20.9 L MCV MCH 27 L MCHC RDW 18.8 H Plt Count Lymph % (Auto) Benzie % (Auto) 10.1 H Lymph # Benzie # 1.0 H Baso # Seg Neutrophils % Seg Neuts % (Manual) Lymphocytes % (Manual) Monocytes % (Manual) Eosinophils % (Manual) Basophils % (Manual) Nucleated RBC % Seg Neutrophils # Seg Neutrophils # Man Lymphocytes # (Manual) Monocytes # (Manual) Eosinophils # (Manual) Basophils # (Manual) PT INR Fibrinogen dRVVT Confirm Interp Factor V Activity POC ABG pH POC ABG pCO2 POC ABG pO2 ABG pO2 ABG HCO3 ABG Base Excess ABG Hemoglobin Oxyhemoglobin Sodium Potassium Chloride Carbon Dioxide BUN Creatinine Glucose POC Glucose 128 H Lactic Acid Calcium Ionized Calcium Phosphorus Magnesium Direct Bilirubin AST ALT Alkaline Phosphatase Lactate Dehydrogenase Troponin T C-Reactive Protein Total Protein Albumin Prealbumin Triglycerides Cholesterol LDL Cholesterol Direct HDL Cholesterol 25-OH Vitamin D Total PTH Intact Urine pH Urine WBC (Auto) Urine Creatinine Urine Total Protein Fluid Total Protein Vancomycin Trough Rheumatoid Factor Complement C4 Miscellaneous Test Crossmatch See Detail 01/25/17 01/25/17 01/26/17 18:02 23:07 01:20 WBC RBC Hgb Hct MCV MCH MCHC RDW Plt Count Lymph % (Auto) Benzie % (Auto) Lymph # Benzie # Baso # Seg Neutrophils % Seg Neuts % (Manual) Lymphocytes % (Manual) Monocytes % (Manual) Eosinophils % (Manual) Basophils % (Manual) Nucleated RBC % Seg Neutrophils # Seg Neutrophils # Man Lymphocytes # (Manual) Monocytes # (Manual) Eosinophils # (Manual) Basophils # (Manual) PT INR Fibrinogen dRVVT Confirm Interp Factor V Activity POC ABG pH POC ABG pCO2 POC ABG pO2 ABG pO2 ABG HCO3 ABG Base Excess ABG Hemoglobin Oxyhemoglobin Sodium Potassium Chloride Carbon Dioxide BUN Creatinine Glucose POC Glucose 120 H 123 H 112 H Lactic Acid Calcium Ionized Calcium Phosphorus Magnesium Direct Bilirubin AST ALT Alkaline Phosphatase Lactate Dehydrogenase Troponin T C-Reactive Protein Total Protein Albumin Prealbumin Triglycerides Cholesterol LDL Cholesterol Direct HDL Cholesterol 25-OH Vitamin D Total PTH Intact Urine pH Urine WBC (Auto) Urine Creatinine Urine Total Protein Fluid Total Protein Vancomycin Trough Rheumatoid Factor Complement C4 Miscellaneous Test Crossmatch 01/26/17 01/26/17 01/26/17 04:20 04:20 11:23 WBC 13.1 H RBC 3.28 L Hgb 9.0 L Hct 26.9 L D MCV MCH 27 L MCHC RDW 17.2 H Plt Count Lymph % (Auto) Benzie % (Auto) 9.0 H Lymph # Benzie # 1.2 H Baso # Seg Neutrophils % 73.1 H Seg Neuts % (Manual) Lymphocytes % (Manual) Monocytes % (Manual) Eosinophils % (Manual) Basophils % (Manual) Nucleated RBC % Seg Neutrophils # 9.6 H Seg Neutrophils # Man Lymphocytes # (Manual) Monocytes # (Manual) Eosinophils # (Manual) Basophils # (Manual) PT INR Fibrinogen dRVVT Confirm Interp Factor V Activity POC ABG pH POC ABG pCO2 POC ABG pO2 ABG pO2 ABG HCO3 ABG Base Excess ABG Hemoglobin Oxyhemoglobin Sodium Potassium Chloride Carbon Dioxide BUN 51 H Creatinine Glucose 117 H POC Glucose 125 H Lactic Acid Calcium Ionized Calcium Phosphorus Magnesium Direct Bilirubin AST ALT Alkaline Phosphatase Lactate Dehydrogenase Troponin T C-Reactive Protein Total Protein Albumin Prealbumin Triglycerides Cholesterol LDL Cholesterol Direct HDL Cholesterol 25-OH Vitamin D Total PTH Intact Urine pH Urine WBC (Auto) Urine Creatinine Urine Total Protein Fluid Total Protein Vancomycin Trough Rheumatoid Factor Complement C4 Miscellaneous Test Crossmatch 01/26/17 01/27/17 01/27/17 17:11 00:30 04:00 WBC RBC Hgb Hct MCV MCH MCHC RDW Plt Count Lymph % (Auto) Benzie % (Auto) Lymph # Benzie # Baso # Seg Neutrophils % Seg Neuts % (Manual) Lymphocytes % (Manual) Monocytes % (Manual) Eosinophils % (Manual) Basophils % (Manual) Nucleated RBC % Seg Neutrophils # Seg Neutrophils # Man Lymphocytes # (Manual) Monocytes # (Manual) Eosinophils # (Manual) Basophils # (Manual) PT INR Fibrinogen dRVVT Confirm Interp Factor V Activity POC ABG pH POC ABG pCO2 POC ABG pO2 ABG pO2 ABG HCO3 ABG Base Excess ABG Hemoglobin Oxyhemoglobin Sodium Potassium Chloride 97.7 L Carbon Dioxide 21 L BUN 79 H Creatinine 1.7 H D Glucose 112 H POC Glucose 133 H 135 H Lactic Acid Calcium Ionized Calcium Phosphorus 5.00 H D Magnesium Direct Bilirubin AST ALT Alkaline Phosphatase Lactate Dehydrogenase Troponin T C-Reactive Protein Total Protein Albumin Prealbumin Triglycerides Cholesterol LDL Cholesterol Direct HDL Cholesterol 25-OH Vitamin D Total PTH Intact Urine pH Urine WBC (Auto) Urine Creatinine Urine Total Protein Fluid Total Protein Vancomycin Trough Rheumatoid Factor Complement C4 Miscellaneous Test Crossmatch 01/27/17 01/27/17 01/27/17 05:12 12:18 17:25 WBC RBC Hgb Hct MCV MCH MCHC RDW Plt Count Lymph % (Auto) Benzie % (Auto) Lymph # Benzie # Baso # Seg Neutrophils % Seg Neuts % (Manual) Lymphocytes % (Manual) Monocytes % (Manual) Eosinophils % (Manual) Basophils % (Manual) Nucleated RBC % Seg Neutrophils # Seg Neutrophils # Man Lymphocytes # (Manual) Monocytes # (Manual) Eosinophils # (Manual) Basophils # (Manual) PT INR Fibrinogen dRVVT Confirm Interp Factor V Activity POC ABG pH POC ABG pCO2 POC ABG pO2 ABG pO2 ABG HCO3 ABG Base Excess ABG Hemoglobin Oxyhemoglobin Sodium Potassium Chloride Carbon Dioxide BUN Creatinine Glucose POC Glucose 116 H 153 H 152 H Lactic Acid Calcium Ionized Calcium Phosphorus Magnesium Direct Bilirubin AST ALT Alkaline Phosphatase Lactate Dehydrogenase Troponin T C-Reactive Protein Total Protein Albumin Prealbumin Triglycerides Cholesterol LDL Cholesterol Direct HDL Cholesterol 25-OH Vitamin D Total PTH Intact Urine pH Urine WBC (Auto) Urine Creatinine Urine Total Protein Fluid Total Protein Vancomycin Trough Rheumatoid Factor Complement C4 Miscellaneous Test Crossmatch 01/27/17 01/28/17 01/28/17 23:42 04:00 04:00 WBC 14.4 H RBC 2.82 L Hgb 7.4 L Hct 23.5 L MCV MCH 26 L MCHC RDW 17.6 H Plt Count Lymph % (Auto) 10.2 L Benzie % (Auto) 11.0 H Lymph # Benzie # 1.6 H Baso # Seg Neutrophils % 78.0 H Seg Neuts % (Manual) Lymphocytes % (Manual) Monocytes % (Manual) Eosinophils % (Manual) Basophils % (Manual) Nucleated RBC % Seg Neutrophils # 11.3 H Seg Neutrophils # Man Lymphocytes # (Manual) Monocytes # (Manual) Eosinophils # (Manual) Basophils # (Manual) PT INR Fibrinogen dRVVT Confirm Interp Factor V Activity POC ABG pH POC ABG pCO2 POC ABG pO2 ABG pO2 ABG HCO3 ABG Base Excess ABG Hemoglobin Oxyhemoglobin Sodium Potassium Chloride Carbon Dioxide BUN 55 H Creatinine 1.3 H Glucose 114 H POC Glucose 121 H Lactic Acid Calcium Ionized Calcium Phosphorus Magnesium Direct Bilirubin AST ALT Alkaline Phosphatase Lactate Dehydrogenase Troponin T C-Reactive Protein Total Protein Albumin 1.4 L Prealbumin Triglycerides Cholesterol LDL Cholesterol Direct HDL Cholesterol 25-OH Vitamin D Total PTH Intact Urine pH Urine WBC (Auto) Urine Creatinine Urine Total Protein Fluid Total Protein Vancomycin Trough Rheumatoid Factor Complement C4 Miscellaneous Test Crossmatch 01/28/17 01/28/17 01/29/17 04:59 12:30 00:02 WBC RBC Hgb Hct MCV MCH MCHC RDW Plt Count Lymph % (Auto) Benzie % (Auto) Lymph # Benzie # Baso # Seg Neutrophils % Seg Neuts % (Manual) Lymphocytes % (Manual) Monocytes % (Manual) Eosinophils % (Manual) Basophils % (Manual) Nucleated RBC % Seg Neutrophils # Seg Neutrophils # Man Lymphocytes # (Manual) Monocytes # (Manual) Eosinophils # (Manual) Basophils # (Manual) PT INR Fibrinogen dRVVT Confirm Interp Factor V Activity POC ABG pH POC ABG pCO2 POC ABG pO2 ABG pO2 ABG HCO3 ABG Base Excess ABG Hemoglobin Oxyhemoglobin Sodium Potassium Chloride Carbon Dioxide BUN Creatinine Glucose POC Glucose 126 H 119 H 138 H Lactic Acid Calcium Ionized Calcium Phosphorus Magnesium Direct Bilirubin AST ALT Alkaline Phosphatase Lactate Dehydrogenase Troponin T C-Reactive Protein Total Protein Albumin Prealbumin Triglycerides Cholesterol LDL Cholesterol Direct HDL Cholesterol 25-OH Vitamin D Total PTH Intact Urine pH Urine WBC (Auto) Urine Creatinine Urine Total Protein Fluid Total Protein Vancomycin Trough Rheumatoid Factor Complement C4 Miscellaneous Test Crossmatch 01/29/17 01/29/17 01/29/17 04:58 06:15 11:35 WBC RBC Hgb Hct MCV MCH MCHC RDW Plt Count Lymph % (Auto) Benzie % (Auto) Lymph # Benzie # Baso # Seg Neutrophils % Seg Neuts % (Manual) Lymphocytes % (Manual) Monocytes % (Manual) Eosinophils % (Manual) Basophils % (Manual) Nucleated RBC % Seg Neutrophils # Seg Neutrophils # Man Lymphocytes # (Manual) Monocytes # (Manual) Eosinophils # (Manual) Basophils # (Manual) PT INR Fibrinogen dRVVT Confirm Interp Factor V Activity POC ABG pH POC ABG pCO2 POC ABG pO2 ABG pO2 ABG HCO3 ABG Base Excess ABG Hemoglobin Oxyhemoglobin Sodium Potassium Chloride Carbon Dioxide BUN 85 H Creatinine 1.7 H Glucose 105 H POC Glucose 114 H 110 H Lactic Acid Calcium Ionized Calcium Phosphorus Magnesium 2.40 H Direct Bilirubin AST ALT Alkaline Phosphatase Lactate Dehydrogenase Troponin T C-Reactive Protein Total Protein Albumin Prealbumin Triglycerides Cholesterol LDL Cholesterol Direct HDL Cholesterol 25-OH Vitamin D Total PTH Intact Urine pH Urine WBC (Auto) Urine Creatinine Urine Total Protein Fluid Total Protein Vancomycin Trough Rheumatoid Factor Complement C4 Miscellaneous Test Crossmatch 01/29/17 01/29/17 01/30/17 18:24 23:41 05:12 WBC RBC Hgb Hct MCV MCH MCHC RDW Plt Count Lymph % (Auto) Benzie % (Auto) Lymph # Benzie # Baso # Seg Neutrophils % Seg Neuts % (Manual) Lymphocytes % (Manual) Monocytes % (Manual) Eosinophils % (Manual) Basophils % (Manual) Nucleated RBC % Seg Neutrophils # Seg Neutrophils # Man Lymphocytes # (Manual) Monocytes # (Manual) Eosinophils # (Manual) Basophils # (Manual) PT INR Fibrinogen dRVVT Confirm Interp Factor V Activity POC ABG pH POC ABG pCO2 POC ABG pO2 ABG pO2 ABG HCO3 ABG Base Excess ABG Hemoglobin Oxyhemoglobin Sodium Potassium Chloride Carbon Dioxide BUN Creatinine Glucose POC Glucose 109 H 134 H 109 H Lactic Acid Calcium Ionized Calcium Phosphorus Magnesium Direct Bilirubin AST ALT Alkaline Phosphatase Lactate Dehydrogenase Troponin T C-Reactive Protein Total Protein Albumin Prealbumin Triglycerides Cholesterol LDL Cholesterol Direct HDL Cholesterol 25-OH Vitamin D Total PTH Intact Urine pH Urine WBC (Auto) Urine Creatinine Urine Total Protein Fluid Total Protein Vancomycin Trough Rheumatoid Factor Complement C4 Miscellaneous Test Crossmatch 01/30/17 01/30/17 01/30/17 11:26 17:43 23:39 WBC RBC Hgb Hct MCV MCH MCHC RDW Plt Count Lymph % (Auto) Benzie % (Auto) Lymph # Benzie # Baso # Seg Neutrophils % Seg Neuts % (Manual) Lymphocytes % (Manual) Monocytes % (Manual) Eosinophils % (Manual) Basophils % (Manual) Nucleated RBC % Seg Neutrophils # Seg Neutrophils # Man Lymphocytes # (Manual) Monocytes # (Manual) Eosinophils # (Manual) Basophils # (Manual) PT INR Fibrinogen dRVVT Confirm Interp Factor V Activity POC ABG pH POC ABG pCO2 POC ABG pO2 ABG pO2 ABG HCO3 ABG Base Excess ABG Hemoglobin Oxyhemoglobin Sodium Potassium Chloride Carbon Dioxide BUN Creatinine Glucose POC Glucose 135 H 143 H 122 H Lactic Acid Calcium Ionized Calcium Phosphorus Magnesium Direct Bilirubin AST ALT Alkaline Phosphatase Lactate Dehydrogenase Troponin T C-Reactive Protein Total Protein Albumin Prealbumin Triglycerides Cholesterol LDL Cholesterol Direct HDL Cholesterol 25-OH Vitamin D Total PTH Intact Urine pH Urine WBC (Auto) Urine Creatinine Urine Total Protein Fluid Total Protein Vancomycin Trough Rheumatoid Factor Complement C4 Miscellaneous Test Crossmatch 01/31/17 01/31/17 01/31/17 04:00 05:40 11:12 WBC RBC Hgb Hct MCV MCH MCHC RDW Plt Count Lymph % (Auto) Benzie % (Auto) Lymph # Benzie # Baso # Seg Neutrophils % Seg Neuts % (Manual) Lymphocytes % (Manual) Monocytes % (Manual) Eosinophils % (Manual) Basophils % (Manual) Nucleated RBC % Seg Neutrophils # Seg Neutrophils # Man Lymphocytes # (Manual) Monocytes # (Manual) Eosinophils # (Manual) Basophils # (Manual) PT INR Fibrinogen dRVVT Confirm Interp Factor V Activity POC ABG pH POC ABG pCO2 POC ABG pO2 ABG pO2 ABG HCO3 ABG Base Excess ABG Hemoglobin Oxyhemoglobin Sodium Potassium Chloride Carbon Dioxide BUN 78 H Creatinine 1.5 H Glucose 108 H POC Glucose 123 H Lactic Acid Calcium Ionized Calcium Phosphorus Magnesium Direct Bilirubin AST ALT Alkaline Phosphatase Lactate Dehydrogenase Troponin T C-Reactive Protein 8.10 H Total Protein Albumin Prealbumin Triglycerides Cholesterol LDL Cholesterol Direct HDL Cholesterol 25-OH Vitamin D Total PTH Intact Urine pH Urine WBC (Auto) Urine Creatinine Urine Total Protein Fluid Total Protein Vancomycin Trough Rheumatoid Factor Complement C4 Miscellaneous Test Crossmatch 01/31/17 01/31/17 01/31/17 11:16 17:45 17:50 WBC RBC Hgb Hct MCV MCH MCHC RDW Plt Count Lymph % (Auto) Benzie % (Auto) Lymph # Benzie # Baso # Seg Neutrophils % Seg Neuts % (Manual) Lymphocytes % (Manual) Monocytes % (Manual) Eosinophils % (Manual) Basophils % (Manual) Nucleated RBC % Seg Neutrophils # Seg Neutrophils # Man Lymphocytes # (Manual) Monocytes # (Manual) Eosinophils # (Manual) Basophils # (Manual) PT INR Fibrinogen dRVVT Confirm Interp Factor V Activity POC ABG pH POC ABG pCO2 POC ABG pO2 ABG pO2 ABG HCO3 ABG Base Excess ABG Hemoglobin Oxyhemoglobin Sodium Potassium Chloride Carbon Dioxide BUN Creatinine Glucose POC Glucose 119 H 111 H Lactic Acid Calcium Ionized Calcium Phosphorus Magnesium Direct Bilirubin AST ALT Alkaline Phosphatase Lactate Dehydrogenase Troponin T C-Reactive Protein Total Protein Albumin Prealbumin Triglycerides Cholesterol LDL Cholesterol Direct HDL Cholesterol 25-OH Vitamin D Total PTH Intact 6.76 L Urine pH Urine WBC (Auto) Urine Creatinine Urine Total Protein Fluid Total Protein Vancomycin Trough Rheumatoid Factor Complement C4 Miscellaneous Test Crossmatch 01/31/17 02/01/17 02/01/17 23:19 05:42 09:24 WBC RBC Hgb Hct MCV MCH MCHC RDW Plt Count Lymph % (Auto) Benzie % (Auto) Lymph # Benzie # Baso # Seg Neutrophils % Seg Neuts % (Manual) Lymphocytes % (Manual) Monocytes % (Manual) Eosinophils % (Manual) Basophils % (Manual) Nucleated RBC % Seg Neutrophils # Seg Neutrophils # Man Lymphocytes # (Manual) Monocytes # (Manual) Eosinophils # (Manual) Basophils # (Manual) PT INR Fibrinogen dRVVT Confirm Interp Factor V Activity POC ABG pH POC ABG pCO2 POC ABG pO2 ABG pO2 ABG HCO3 ABG Base Excess ABG Hemoglobin Oxyhemoglobin Sodium Potassium Chloride Carbon Dioxide BUN Creatinine Glucose POC Glucose 118 H 122 H Lactic Acid Calcium Ionized Calcium Phosphorus Magnesium 2.60 H Direct Bilirubin AST ALT Alkaline Phosphatase Lactate Dehydrogenase Troponin T C-Reactive Protein Total Protein Albumin Prealbumin Triglycerides Cholesterol LDL Cholesterol Direct HDL Cholesterol 25-OH Vitamin D Total PTH Intact Urine pH Urine WBC (Auto) Urine Creatinine Urine Total Protein Fluid Total Protein Vancomycin Trough Rheumatoid Factor Complement C4 Miscellaneous Test Crossmatch 02/01/17 02/01/17 02/02/17 09:24 12:15 07:40 WBC RBC Hgb Hct MCV MCH MCHC RDW Plt Count Lymph % (Auto) Benzie % (Auto) Lymph # Benzie # Baso # Seg Neutrophils % Seg Neuts % (Manual) Lymphocytes % (Manual) Monocytes % (Manual) Eosinophils % (Manual) Basophils % (Manual) Nucleated RBC % Seg Neutrophils # Seg Neutrophils # Man Lymphocytes # (Manual) Monocytes # (Manual) Eosinophils # (Manual) Basophils # (Manual) PT INR Fibrinogen dRVVT Confirm Interp Factor V Activity POC ABG pH POC ABG pCO2 POC ABG pO2 ABG pO2 ABG HCO3 ABG Base Excess ABG Hemoglobin Oxyhemoglobin Sodium Potassium Chloride Carbon Dioxide BUN 102 H 72 H Creatinine 1.9 H 1.5 H Glucose 120 H POC Glucose 156 H Lactic Acid Calcium Ionized Calcium Phosphorus Magnesium Direct Bilirubin AST ALT Alkaline Phosphatase Lactate Dehydrogenase Troponin T C-Reactive Protein Total Protein Albumin Prealbumin Triglycerides Cholesterol LDL Cholesterol Direct HDL Cholesterol 25-OH Vitamin D Total PTH Intact Urine pH Urine WBC (Auto) Urine Creatinine Urine Total Protein Fluid Total Protein Vancomycin Trough Rheumatoid Factor Complement C4 Miscellaneous Test Crossmatch 02/02/17 02/02/17 02/03/17 10:16 12:11 00:08 WBC 12.0 H RBC 3.08 L Hgb 8.3 L Hct 25.6 L MCV MCH 27 L MCHC RDW 18.2 H Plt Count Lymph % (Auto) Benzie % (Auto) Lymph # Benzie # Baso # Seg Neutrophils % 78.4 H Seg Neuts % (Manual) Lymphocytes % (Manual) Monocytes % (Manual) Eosinophils % (Manual) Basophils % (Manual) Nucleated RBC % Seg Neutrophils # 9.4 H Seg Neutrophils # Man Lymphocytes # (Manual) Monocytes # (Manual) Eosinophils # (Manual) Basophils # (Manual) PT INR Fibrinogen dRVVT Confirm Interp Factor V Activity POC ABG pH POC ABG pCO2 POC ABG pO2 ABG pO2 ABG HCO3 ABG Base Excess ABG Hemoglobin Oxyhemoglobin Sodium Potassium Chloride Carbon Dioxide BUN Creatinine Glucose POC Glucose 110 H 120 H Lactic Acid Calcium Ionized Calcium Phosphorus Magnesium Direct Bilirubin AST ALT Alkaline Phosphatase Lactate Dehydrogenase Troponin T C-Reactive Protein Total Protein Albumin Prealbumin Triglycerides Cholesterol LDL Cholesterol Direct HDL Cholesterol 25-OH Vitamin D Total PTH Intact Urine pH Urine WBC (Auto) Urine Creatinine Urine Total Protein Fluid Total Protein Vancomycin Trough Rheumatoid Factor Complement C4 Miscellaneous Test Crossmatch 02/03/17 02/03/17 02/03/17 05:41 07:38 11:31 WBC RBC Hgb Hct MCV MCH MCHC RDW Plt Count Lymph % (Auto) Benzie % (Auto) Lymph # Benzie # Baso # Seg Neutrophils % Seg Neuts % (Manual) Lymphocytes % (Manual) Monocytes % (Manual) Eosinophils % (Manual) Basophils % (Manual) Nucleated RBC % Seg Neutrophils # Seg Neutrophils # Man Lymphocytes # (Manual) Monocytes # (Manual) Eosinophils # (Manual) Basophils # (Manual) PT INR Fibrinogen dRVVT Confirm Interp Factor V Activity POC ABG pH POC ABG pCO2 POC ABG pO2 ABG pO2 ABG HCO3 ABG Base Excess ABG Hemoglobin Oxyhemoglobin Sodium 134 L Potassium Chloride Carbon Dioxide 21 L BUN 91 H Creatinine 1.9 H Glucose 110 H POC Glucose 119 H 119 H Lactic Acid Calcium 10.3 H Ionized Calcium Phosphorus Magnesium Direct Bilirubin AST ALT Alkaline Phosphatase Lactate Dehydrogenase Troponin T C-Reactive Protein Total Protein Albumin Prealbumin Triglycerides Cholesterol LDL Cholesterol Direct HDL Cholesterol 25-OH Vitamin D Total PTH Intact Urine pH Urine WBC (Auto) Urine Creatinine Urine Total Protein Fluid Total Protein Vancomycin Trough Rheumatoid Factor Complement C4 Miscellaneous Test Crossmatch 02/03/17 02/04/17 02/04/17 17:13 04:00 05:18 WBC RBC Hgb Hct MCV MCH MCHC RDW Plt Count Lymph % (Auto) Benzie % (Auto) Lymph # Benzie # Baso # Seg Neutrophils % Seg Neuts % (Manual) Lymphocytes % (Manual) Monocytes % (Manual) Eosinophils % (Manual) Basophils % (Manual) Nucleated RBC % Seg Neutrophils # Seg Neutrophils # Man Lymphocytes # (Manual) Monocytes # (Manual) Eosinophils # (Manual) Basophils # (Manual) PT INR Fibrinogen dRVVT Confirm Interp Factor V Activity POC ABG pH POC ABG pCO2 POC ABG pO2 ABG pO2 ABG HCO3 ABG Base Excess ABG Hemoglobin Oxyhemoglobin Sodium 136 L Potassium Chloride Carbon Dioxide BUN 58 H Creatinine 1.3 H Glucose 103 H POC Glucose 133 H 132 H Lactic Acid Calcium Ionized Calcium Phosphorus 2.00 L D Magnesium 1.60 L Direct Bilirubin AST ALT Alkaline Phosphatase Lactate Dehydrogenase Troponin T C-Reactive Protein Total Protein Albumin Prealbumin Triglycerides Cholesterol LDL Cholesterol Direct HDL Cholesterol 25-OH Vitamin D Total PTH Intact Urine pH Urine WBC (Auto) Urine Creatinine Urine Total Protein Fluid Total Protein Vancomycin Trough Rheumatoid Factor Complement C4 Miscellaneous Test Crossmatch 02/05/17 02/05/17 02/05/17 00:01 04:00 06:42 WBC RBC Hgb Hct MCV MCH MCHC RDW Plt Count Lymph % (Auto) Benzie % (Auto) Lymph # Benzie # Baso # Seg Neutrophils % Seg Neuts % (Manual) Lymphocytes % (Manual) Monocytes % (Manual) Eosinophils % (Manual) Basophils % (Manual) Nucleated RBC % Seg Neutrophils # Seg Neutrophils # Man Lymphocytes # (Manual) Monocytes # (Manual) Eosinophils # (Manual) Basophils # (Manual) PT INR Fibrinogen dRVVT Confirm Interp Factor V Activity POC ABG pH POC ABG pCO2 POC ABG pO2 ABG pO2 ABG HCO3 ABG Base Excess ABG Hemoglobin Oxyhemoglobin Sodium Potassium Chloride Carbon Dioxide BUN 83 H Creatinine 1.8 H Glucose POC Glucose 119 H 110 H Lactic Acid Calcium 10.7 H Ionized Calcium Phosphorus Magnesium Direct Bilirubin AST ALT Alkaline Phosphatase Lactate Dehydrogenase Troponin T C-Reactive Protein Total Protein Albumin Prealbumin Triglycerides Cholesterol LDL Cholesterol Direct HDL Cholesterol 25-OH Vitamin D Total PTH Intact Urine pH Urine WBC (Auto) Urine Creatinine Urine Total Protein Fluid Total Protein Vancomycin Trough Rheumatoid Factor Complement C4 Miscellaneous Test Crossmatch 02/05/17 02/05/17 02/05/17 09:59 11:47 23:44 WBC RBC 2.69 L Hgb 7.2 L Hct 22.5 L MCV MCH 27 L MCHC RDW 18.6 H Plt Count Lymph % (Auto) Benzie % (Auto) 9.2 H Lymph # Benzie # 0.9 H Baso # Seg Neutrophils % Seg Neuts % (Manual) Lymphocytes % (Manual) Monocytes % (Manual) Eosinophils % (Manual) Basophils % (Manual) Nucleated RBC % Seg Neutrophils # Seg Neutrophils # Man Lymphocytes # (Manual) Monocytes # (Manual) Eosinophils # (Manual) Basophils # (Manual) PT INR Fibrinogen dRVVT Confirm Interp Factor V Activity POC ABG pH POC ABG pCO2 POC ABG pO2 ABG pO2 ABG HCO3 ABG Base Excess ABG Hemoglobin Oxyhemoglobin Sodium Potassium Chloride Carbon Dioxide BUN Creatinine Glucose POC Glucose 130 H 123 H Lactic Acid Calcium Ionized Calcium Phosphorus Magnesium Direct Bilirubin AST ALT Alkaline Phosphatase Lactate Dehydrogenase Troponin T C-Reactive Protein Total Protein Albumin Prealbumin Triglycerides Cholesterol LDL Cholesterol Direct HDL Cholesterol 25-OH Vitamin D Total PTH Intact Urine pH Urine WBC (Auto) Urine Creatinine Urine Total Protein Fluid Total Protein Vancomycin Trough Rheumatoid Factor Complement C4 Miscellaneous Test Crossmatch 02/06/17 02/06/17 02/06/17 04:45 05:58 12:01 WBC RBC Hgb Hct MCV MCH MCHC RDW Plt Count Lymph % (Auto) Benzie % (Auto) Lymph # Benzie # Baso # Seg Neutrophils % Seg Neuts % (Manual) Lymphocytes % (Manual) Monocytes % (Manual) Eosinophils % (Manual) Basophils % (Manual) Nucleated RBC % Seg Neutrophils # Seg Neutrophils # Man Lymphocytes # (Manual) Monocytes # (Manual) Eosinophils # (Manual) Basophils # (Manual) PT INR Fibrinogen dRVVT Confirm Interp Factor V Activity POC ABG pH POC ABG pCO2 POC ABG pO2 ABG pO2 ABG HCO3 ABG Base Excess ABG Hemoglobin Oxyhemoglobin Sodium Potassium Chloride Carbon Dioxide BUN 101 H Creatinine 2.0 H Glucose 102 H POC Glucose 115 H 132 H Lactic Acid Calcium 10.6 H Ionized Calcium Phosphorus Magnesium Direct Bilirubin AST ALT Alkaline Phosphatase 199 H Lactate Dehydrogenase Troponin T C-Reactive Protein Total Protein Albumin 1.4 L Prealbumin Triglycerides Cholesterol LDL Cholesterol Direct HDL Cholesterol 25-OH Vitamin D Total PTH Intact Urine pH Urine WBC (Auto) Urine Creatinine Urine Total Protein Fluid Total Protein Vancomycin Trough Rheumatoid Factor Complement C4 Miscellaneous Test Crossmatch 02/06/17 02/06/17 02/07/17 17:41 23:32 05:04 WBC RBC Hgb Hct MCV MCH MCHC RDW Plt Count Lymph % (Auto) Benzie % (Auto) Lymph # Benzie # Baso # Seg Neutrophils % Seg Neuts % (Manual) Lymphocytes % (Manual) Monocytes % (Manual) Eosinophils % (Manual) Basophils % (Manual) Nucleated RBC % Seg Neutrophils # Seg Neutrophils # Man Lymphocytes # (Manual) Monocytes # (Manual) Eosinophils # (Manual) Basophils # (Manual) PT INR Fibrinogen dRVVT Confirm Interp Factor V Activity POC ABG pH POC ABG pCO2 POC ABG pO2 ABG pO2 ABG HCO3 ABG Base Excess ABG Hemoglobin Oxyhemoglobin Sodium Potassium Chloride Carbon Dioxide BUN Creatinine Glucose POC Glucose 134 H 128 H 119 H Lactic Acid Calcium Ionized Calcium Phosphorus Magnesium Direct Bilirubin AST ALT Alkaline Phosphatase Lactate Dehydrogenase Troponin T C-Reactive Protein Total Protein Albumin Prealbumin Triglycerides Cholesterol LDL Cholesterol Direct HDL Cholesterol 25-OH Vitamin D Total PTH Intact Urine pH Urine WBC (Auto) Urine Creatinine Urine Total Protein Fluid Total Protein Vancomycin Trough Rheumatoid Factor Complement C4 Miscellaneous Test Crossmatch 02/07/17 02/07/17 02/07/17 06:30 11:20 17:13 WBC RBC Hgb Hct MCV MCH MCHC RDW Plt Count Lymph % (Auto) Benzie % (Auto) Lymph # Benzie # Baso # Seg Neutrophils % Seg Neuts % (Manual) Lymphocytes % (Manual) Monocytes % (Manual) Eosinophils % (Manual) Basophils % (Manual) Nucleated RBC % Seg Neutrophils # Seg Neutrophils # Man Lymphocytes # (Manual) Monocytes # (Manual) Eosinophils # (Manual) Basophils # (Manual) PT INR Fibrinogen dRVVT Confirm Interp Factor V Activity POC ABG pH POC ABG pCO2 POC ABG pO2 ABG pO2 ABG HCO3 ABG Base Excess ABG Hemoglobin Oxyhemoglobin Sodium Potassium 3.4 L Chloride Carbon Dioxide BUN 69 H Creatinine 1.5 H Glucose 105 H POC Glucose 117 H 110 H Lactic Acid Calcium Ionized Calcium Phosphorus Magnesium 1.50 L Direct Bilirubin AST ALT Alkaline Phosphatase Lactate Dehydrogenase Troponin T C-Reactive Protein Total Protein Albumin Prealbumin Triglycerides Cholesterol LDL Cholesterol Direct HDL Cholesterol 25-OH Vitamin D Total PTH Intact Urine pH Urine WBC (Auto) Urine Creatinine Urine Total Protein Fluid Total Protein Vancomycin Trough Rheumatoid Factor Complement C4 Miscellaneous Test Crossmatch 02/07/17 02/08/17 02/08/17 20:47 04:00 11:43 WBC RBC Hgb Hct MCV MCH MCHC RDW Plt Count Lymph % (Auto) Benzie % (Auto) Lymph # Benzie # Baso # Seg Neutrophils % Seg Neuts % (Manual) Lymphocytes % (Manual) Monocytes % (Manual) Eosinophils % (Manual) Basophils % (Manual) Nucleated RBC % Seg Neutrophils # Seg Neutrophils # Man Lymphocytes # (Manual) Monocytes # (Manual) Eosinophils # (Manual) Basophils # (Manual) PT INR Fibrinogen dRVVT Confirm Interp Factor V Activity POC ABG pH POC ABG pCO2 POC ABG pO2 ABG pO2 ABG HCO3 ABG Base Excess ABG Hemoglobin Oxyhemoglobin Sodium Potassium Chloride Carbon Dioxide BUN 86 H Creatinine 1.7 H Glucose POC Glucose 115 H 122 H Lactic Acid Calcium Ionized Calcium Phosphorus Magnesium 1.60 L Direct Bilirubin AST ALT Alkaline Phosphatase Lactate Dehydrogenase Troponin T C-Reactive Protein Total Protein Albumin Prealbumin Triglycerides Cholesterol LDL Cholesterol Direct HDL Cholesterol 25-OH Vitamin D Total PTH Intact Urine pH Urine WBC (Auto) Urine Creatinine Urine Total Protein Fluid Total Protein Vancomycin Trough Rheumatoid Factor Complement C4 Miscellaneous Test Crossmatch 02/08/17 02/09/17 02/09/17 17:36 05:44 11:30 WBC RBC Hgb Hct MCV MCH MCHC RDW Plt Count Lymph % (Auto) Benzie % (Auto) Lymph # Benzie # Baso # Seg Neutrophils % Seg Neuts % (Manual) Lymphocytes % (Manual) Monocytes % (Manual) Eosinophils % (Manual) Basophils % (Manual) Nucleated RBC % Seg Neutrophils # Seg Neutrophils # Man Lymphocytes # (Manual) Monocytes # (Manual) Eosinophils # (Manual) Basophils # (Manual) PT INR Fibrinogen dRVVT Confirm Interp Factor V Activity POC ABG pH POC ABG pCO2 POC ABG pO2 ABG pO2 ABG HCO3 ABG Base Excess ABG Hemoglobin Oxyhemoglobin Sodium Potassium Chloride Carbon Dioxide BUN Creatinine Glucose POC Glucose 125 H 117 H 120 H Lactic Acid Calcium Ionized Calcium Phosphorus Magnesium Direct Bilirubin AST ALT Alkaline Phosphatase Lactate Dehydrogenase Troponin T C-Reactive Protein Total Protein Albumin Prealbumin Triglycerides Cholesterol LDL Cholesterol Direct HDL Cholesterol 25-OH Vitamin D Total PTH Intact Urine pH Urine WBC (Auto) Urine Creatinine Urine Total Protein Fluid Total Protein Vancomycin Trough Rheumatoid Factor Complement C4 Miscellaneous Test Crossmatch 02/09/17 02/10/17 02/10/17 23:45 05:45 05:50 WBC RBC Hgb Hct MCV MCH MCHC RDW Plt Count Lymph % (Auto) Benzie % (Auto) Lymph # Benzie # Baso # Seg Neutrophils % Seg Neuts % (Manual) Lymphocytes % (Manual) Monocytes % (Manual) Eosinophils % (Manual) Basophils % (Manual) Nucleated RBC % Seg Neutrophils # Seg Neutrophils # Man Lymphocytes # (Manual) Monocytes # (Manual) Eosinophils # (Manual) Basophils # (Manual) PT INR Fibrinogen dRVVT Confirm Interp Factor V Activity POC ABG pH POC ABG pCO2 POC ABG pO2 ABG pO2 ABG HCO3 ABG Base Excess ABG Hemoglobin Oxyhemoglobin Sodium Potassium Chloride Carbon Dioxide BUN 85 H Creatinine 1.8 H Glucose 109 H POC Glucose 114 H 189 H Lactic Acid Calcium Ionized Calcium Phosphorus Magnesium 2.50 H Direct Bilirubin AST ALT Alkaline Phosphatase Lactate Dehydrogenase Troponin T C-Reactive Protein Total Protein Albumin Prealbumin Triglycerides Cholesterol LDL Cholesterol Direct HDL Cholesterol 25-OH Vitamin D Total PTH Intact Urine pH Urine WBC (Auto) Urine Creatinine Urine Total Protein Fluid Total Protein Vancomycin Trough Rheumatoid Factor Complement C4 Miscellaneous Test Crossmatch 02/10/17 02/10/17 02/10/17 05:51 11:55 17:42 WBC RBC Hgb Hct MCV MCH MCHC RDW Plt Count Lymph % (Auto) Benzie % (Auto) Lymph # Benzie # Baso # Seg Neutrophils % Seg Neuts % (Manual) Lymphocytes % (Manual) Monocytes % (Manual) Eosinophils % (Manual) Basophils % (Manual) Nucleated RBC % Seg Neutrophils # Seg Neutrophils # Man Lymphocytes # (Manual) Monocytes # (Manual) Eosinophils # (Manual) Basophils # (Manual) PT INR Fibrinogen dRVVT Confirm Interp Factor V Activity POC ABG pH POC ABG pCO2 POC ABG pO2 ABG pO2 ABG HCO3 ABG Base Excess ABG Hemoglobin Oxyhemoglobin Sodium Potassium Chloride Carbon Dioxide BUN Creatinine Glucose POC Glucose 106 H 146 H 132 H Lactic Acid Calcium Ionized Calcium Phosphorus Magnesium Direct Bilirubin AST ALT Alkaline Phosphatase Lactate Dehydrogenase Troponin T C-Reactive Protein Total Protein Albumin Prealbumin Triglycerides Cholesterol LDL Cholesterol Direct HDL Cholesterol 25-OH Vitamin D Total PTH Intact Urine pH Urine WBC (Auto) Urine Creatinine Urine Total Protein Fluid Total Protein Vancomycin Trough Rheumatoid Factor Complement C4 Miscellaneous Test Crossmatch 02/10/17 02/11/17 02/11/17 23:43 04:08 05:34 WBC RBC Hgb Hct MCV MCH MCHC RDW Plt Count Lymph % (Auto) Benzie % (Auto) Lymph # Benzie # Baso # Seg Neutrophils % Seg Neuts % (Manual) Lymphocytes % (Manual) Monocytes % (Manual) Eosinophils % (Manual) Basophils % (Manual) Nucleated RBC % Seg Neutrophils # Seg Neutrophils # Man Lymphocytes # (Manual) Monocytes # (Manual) Eosinophils # (Manual) Basophils # (Manual) PT INR Fibrinogen dRVVT Confirm Interp Factor V Activity POC ABG pH POC ABG pCO2 POC ABG pO2 ABG pO2 ABG HCO3 ABG Base Excess ABG Hemoglobin Oxyhemoglobin Sodium 136 L Potassium Chloride Carbon Dioxide BUN 65 H Creatinine 1.7 H Glucose 105 H POC Glucose 130 H 113 H Lactic Acid Calcium Ionized Calcium Phosphorus Magnesium Direct Bilirubin AST ALT Alkaline Phosphatase Lactate Dehydrogenase Troponin T C-Reactive Protein Total Protein Albumin Prealbumin Triglycerides Cholesterol LDL Cholesterol Direct HDL Cholesterol 25-OH Vitamin D Total PTH Intact Urine pH Urine WBC (Auto) Urine Creatinine Urine Total Protein Fluid Total Protein Vancomycin Trough Rheumatoid Factor Complement C4 Miscellaneous Test Crossmatch 02/11/17 02/11/17 02/12/17 11:56 23:18 06:19 WBC RBC Hgb Hct MCV MCH MCHC RDW Plt Count Lymph % (Auto) Benzie % (Auto) Lymph # Benzie # Baso # Seg Neutrophils % Seg Neuts % (Manual) Lymphocytes % (Manual) Monocytes % (Manual) Eosinophils % (Manual) Basophils % (Manual) Nucleated RBC % Seg Neutrophils # Seg Neutrophils # Man Lymphocytes # (Manual) Monocytes # (Manual) Eosinophils # (Manual) Basophils # (Manual) PT INR Fibrinogen dRVVT Confirm Interp Factor V Activity POC ABG pH POC ABG pCO2 POC ABG pO2 ABG pO2 ABG HCO3 ABG Base Excess ABG Hemoglobin Oxyhemoglobin Sodium 136 L Potassium Chloride 97.1 L Carbon Dioxide BUN 93 H Creatinine 2.4 H Glucose POC Glucose 126 H 119 H Lactic Acid Calcium 11.0 H Ionized Calcium Phosphorus Magnesium Direct Bilirubin AST ALT Alkaline Phosphatase Lactate Dehydrogenase Troponin T C-Reactive Protein Total Protein Albumin Prealbumin Triglycerides Cholesterol LDL Cholesterol Direct HDL Cholesterol 25-OH Vitamin D Total PTH Intact Urine pH Urine WBC (Auto) Urine Creatinine Urine Total Protein Fluid Total Protein Vancomycin Trough Rheumatoid Factor Complement C4 Miscellaneous Test Crossmatch 02/12/17 02/12/17 02/12/17 08:00 10:25 11:42 WBC 15.4 H RBC 2.63 L Hgb 6.9 L Hct 22.6 L MCV MCH 26 L MCHC RDW 20.5 H Plt Count Lymph % (Auto) Benzie % (Auto) Lymph # Benzie # Baso # Seg Neutrophils % Seg Neuts % (Manual) Lymphocytes % (Manual) Monocytes % (Manual) Eosinophils % (Manual) Basophils % (Manual) Nucleated RBC % Seg Neutrophils # Seg Neutrophils # Man Lymphocytes # (Manual) Monocytes # (Manual) Eosinophils # (Manual) Basophils # (Manual) PT INR Fibrinogen dRVVT Confirm Interp Factor V Activity POC ABG pH POC ABG pCO2 POC ABG pO2 ABG pO2 ABG HCO3 ABG Base Excess ABG Hemoglobin Oxyhemoglobin Sodium Potassium Chloride Carbon Dioxide BUN Creatinine Glucose POC Glucose 142 H Lactic Acid Calcium Ionized Calcium Phosphorus Magnesium Direct Bilirubin AST ALT Alkaline Phosphatase Lactate Dehydrogenase Troponin T C-Reactive Protein Total Protein Albumin Prealbumin Triglycerides Cholesterol LDL Cholesterol Direct HDL Cholesterol 25-OH Vitamin D Total PTH Intact Urine pH Urine WBC (Auto) Urine Creatinine Urine Total Protein Fluid Total Protein Vancomycin Trough Rheumatoid Factor Complement C4 Miscellaneous Test Crossmatch See Detail 02/12/17 02/13/17 02/13/17 18:04 00:04 05:00 WBC RBC Hgb Hct MCV MCH MCHC RDW Plt Count Lymph % (Auto) Benzie % (Auto) Lymph # Benzie # Baso # Seg Neutrophils % Seg Neuts % (Manual) Lymphocytes % (Manual) Monocytes % (Manual) Eosinophils % (Manual) Basophils % (Manual) Nucleated RBC % Seg Neutrophils # Seg Neutrophils # Man Lymphocytes # (Manual) Monocytes # (Manual) Eosinophils # (Manual) Basophils # (Manual) PT INR Fibrinogen dRVVT Confirm Interp Factor V Activity POC ABG pH POC ABG pCO2 POC ABG pO2 ABG pO2 ABG HCO3 ABG Base Excess ABG Hemoglobin Oxyhemoglobin Sodium 134 L Potassium Chloride 96.1 L Carbon Dioxide 20 L BUN 125 H Creatinine 3.0 H Glucose 111 H POC Glucose 135 H 109 H Lactic Acid Calcium 11.3 H Ionized Calcium Phosphorus Magnesium Direct Bilirubin AST ALT Alkaline Phosphatase Lactate Dehydrogenase Troponin T C-Reactive Protein Total Protein Albumin Prealbumin Triglycerides Cholesterol LDL Cholesterol Direct HDL Cholesterol 25-OH Vitamin D Total PTH Intact Urine pH Urine WBC (Auto) Urine Creatinine Urine Total Protein Fluid Total Protein Vancomycin Trough Rheumatoid Factor Complement C4 Miscellaneous Test Crossmatch 02/13/17 02/13/17 02/13/17 05:00 05:28 12:03 WBC 11.9 H RBC 2.92 L Hgb 7.8 L Hct 25.2 L MCV MCH 27 L MCHC RDW 19.3 H Plt Count Lymph % (Auto) Benzie % (Auto) Lymph # Benzie # Baso # Seg Neutrophils % Seg Neuts % (Manual) Lymphocytes % (Manual) Monocytes % (Manual) Eosinophils % (Manual) Basophils % (Manual) Nucleated RBC % Seg Neutrophils # Seg Neutrophils # Man Lymphocytes # (Manual) Monocytes # (Manual) Eosinophils # (Manual) Basophils # (Manual) PT INR Fibrinogen dRVVT Confirm Interp Factor V Activity POC ABG pH POC ABG pCO2 POC ABG pO2 ABG pO2 ABG HCO3 ABG Base Excess ABG Hemoglobin Oxyhemoglobin Sodium Potassium Chloride Carbon Dioxide BUN Creatinine Glucose POC Glucose 124 H 160 H Lactic Acid Calcium Ionized Calcium Phosphorus Magnesium Direct Bilirubin AST ALT Alkaline Phosphatase Lactate Dehydrogenase Troponin T C-Reactive Protein Total Protein Albumin Prealbumin Triglycerides Cholesterol LDL Cholesterol Direct HDL Cholesterol 25-OH Vitamin D Total PTH Intact Urine pH Urine WBC (Auto) Urine Creatinine Urine Total Protein Fluid Total Protein Vancomycin Trough Rheumatoid Factor Complement C4 Miscellaneous Test Crossmatch 02/13/17 02/14/17 02/14/17 18:09 06:16 08:08 WBC 15.2 H RBC 2.97 L Hgb 8.1 L Hct 26.3 L MCV MCH MCHC RDW 19.3 H Plt Count Lymph % (Auto) Benzie % (Auto) Lymph # Benzie # Baso # Seg Neutrophils % Seg Neuts % (Manual) Lymphocytes % (Manual) Monocytes % (Manual) Eosinophils % (Manual) Basophils % (Manual) Nucleated RBC % Seg Neutrophils # Seg Neutrophils # Man Lymphocytes # (Manual) Monocytes # (Manual) Eosinophils # (Manual) Basophils # (Manual) PT INR Fibrinogen dRVVT Confirm Interp Factor V Activity POC ABG pH POC ABG pCO2 POC ABG pO2 ABG pO2 ABG HCO3 ABG Base Excess ABG Hemoglobin Oxyhemoglobin Sodium Potassium Chloride Carbon Dioxide BUN Creatinine Glucose POC Glucose 110 H 112 H Lactic Acid Calcium Ionized Calcium Phosphorus Magnesium Direct Bilirubin AST ALT Alkaline Phosphatase Lactate Dehydrogenase Troponin T C-Reactive Protein Total Protein Albumin Prealbumin Triglycerides Cholesterol LDL Cholesterol Direct HDL Cholesterol 25-OH Vitamin D Total PTH Intact Urine pH Urine WBC (Auto) Urine Creatinine Urine Total Protein Fluid Total Protein Vancomycin Trough Rheumatoid Factor Complement C4 Miscellaneous Test Crossmatch 02/14/17 02/14/17 02/15/17 08:08 17:41 04:15 WBC RBC Hgb Hct MCV MCH MCHC RDW Plt Count Lymph % (Auto) Benzie % (Auto) Lymph # Benzie # Baso # Seg Neutrophils % Seg Neuts % (Manual) Lymphocytes % (Manual) Monocytes % (Manual) Eosinophils % (Manual) Basophils % (Manual) Nucleated RBC % Seg Neutrophils # Seg Neutrophils # Man Lymphocytes # (Manual) Monocytes # (Manual) Eosinophils # (Manual) Basophils # (Manual) PT INR Fibrinogen dRVVT Confirm Interp Factor V Activity POC ABG pH POC ABG pCO2 POC ABG pO2 ABG pO2 ABG HCO3 ABG Base Excess ABG Hemoglobin Oxyhemoglobin Sodium Potassium Chloride Carbon Dioxide 18 L 21 L BUN 79 H 113 H Creatinine 2.1 H 2.8 H Glucose POC Glucose 118 H Lactic Acid Calcium 10.7 H Ionized Calcium Phosphorus 1.70 L D Magnesium 1.60 L Direct Bilirubin AST ALT Alkaline Phosphatase Lactate Dehydrogenase Troponin T C-Reactive Protein Total Protein Albumin Prealbumin Triglycerides Cholesterol LDL Cholesterol Direct HDL Cholesterol 25-OH Vitamin D Total PTH Intact Urine pH Urine WBC (Auto) Urine Creatinine Urine Total Protein Fluid Total Protein Vancomycin Trough Rheumatoid Factor Complement C4 Miscellaneous Test Crossmatch 02/15/17 02/15/17 02/15/17 06:06 11:31 17:52 WBC RBC Hgb Hct MCV MCH MCHC RDW Plt Count Lymph % (Auto) Benzie % (Auto) Lymph # Benzie # Baso # Seg Neutrophils % Seg Neuts % (Manual) Lymphocytes % (Manual) Monocytes % (Manual) Eosinophils % (Manual) Basophils % (Manual) Nucleated RBC % Seg Neutrophils # Seg Neutrophils # Man Lymphocytes # (Manual) Monocytes # (Manual) Eosinophils # (Manual) Basophils # (Manual) PT INR Fibrinogen dRVVT Confirm Interp Factor V Activity POC ABG pH POC ABG pCO2 POC ABG pO2 ABG pO2 ABG HCO3 ABG Base Excess ABG Hemoglobin Oxyhemoglobin Sodium Potassium Chloride Carbon Dioxide BUN Creatinine Glucose POC Glucose 115 H 129 H 201 H Lactic Acid Calcium Ionized Calcium Phosphorus Magnesium Direct Bilirubin AST ALT Alkaline Phosphatase Lactate Dehydrogenase Troponin T C-Reactive Protein Total Protein Albumin Prealbumin Triglycerides Cholesterol LDL Cholesterol Direct HDL Cholesterol 25-OH Vitamin D Total PTH Intact Urine pH Urine WBC (Auto) Urine Creatinine Urine Total Protein Fluid Total Protein Vancomycin Trough Rheumatoid Factor Complement C4 Miscellaneous Test Crossmatch 02/15/17 02/15/17 02/15/17 19:08 19:08 19:08 WBC RBC Hgb Hct MCV MCH MCHC RDW Plt Count Lymph % (Auto) Benzie % (Auto) Lymph # Benzie # Baso # Seg Neutrophils % Seg Neuts % (Manual) Lymphocytes % (Manual) Monocytes % (Manual) Eosinophils % (Manual) Basophils % (Manual) Nucleated RBC % Seg Neutrophils # Seg Neutrophils # Man Lymphocytes # (Manual) Monocytes # (Manual) Eosinophils # (Manual) Basophils # (Manual) PT INR Fibrinogen dRVVT Confirm Interp Factor V Activity POC ABG pH POC ABG pCO2 POC ABG pO2 ABG pO2 ABG HCO3 ABG Base Excess ABG Hemoglobin Oxyhemoglobin Sodium Potassium Chloride Carbon Dioxide BUN Creatinine Glucose POC Glucose Lactic Acid Calcium Ionized Calcium 6.0 H Phosphorus Magnesium Direct Bilirubin AST ALT Alkaline Phosphatase Lactate Dehydrogenase Troponin T C-Reactive Protein Total Protein Albumin Prealbumin Triglycerides Cholesterol LDL Cholesterol Direct HDL Cholesterol 25-OH Vitamin D Total 13 L PTH Intact 10.88 L Urine pH Urine WBC (Auto) Urine Creatinine Urine Total Protein Fluid Total Protein Vancomycin Trough Rheumatoid Factor Complement C4 Miscellaneous Test Crossmatch 02/16/17 02/16/17 02/16/17 05:12 06:00 12:39 WBC RBC Hgb Hct MCV MCH MCHC RDW Plt Count Lymph % (Auto) Benzie % (Auto) Lymph # Benzie # Baso # Seg Neutrophils % Seg Neuts % (Manual) Lymphocytes % (Manual) Monocytes % (Manual) Eosinophils % (Manual) Basophils % (Manual) Nucleated RBC % Seg Neutrophils # Seg Neutrophils # Man Lymphocytes # (Manual) Monocytes # (Manual) Eosinophils # (Manual) Basophils # (Manual) PT INR Fibrinogen dRVVT Confirm Interp Factor V Activity POC ABG pH POC ABG pCO2 POC ABG pO2 ABG pO2 ABG HCO3 ABG Base Excess ABG Hemoglobin Oxyhemoglobin Sodium Potassium Chloride Carbon Dioxide BUN 74 H Creatinine 1.7 H Glucose 102 H POC Glucose 125 H 109 H Lactic Acid Calcium Ionized Calcium Phosphorus 2.10 L D Magnesium Direct Bilirubin AST ALT Alkaline Phosphatase Lactate Dehydrogenase Troponin T C-Reactive Protein Total Protein Albumin Prealbumin Triglycerides Cholesterol LDL Cholesterol Direct HDL Cholesterol 25-OH Vitamin D Total PTH Intact Urine pH Urine WBC (Auto) Urine Creatinine Urine Total Protein Fluid Total Protein Vancomycin Trough Rheumatoid Factor Complement C4 Miscellaneous Test Crossmatch 02/16/17 02/16/17 02/17/17 17:31 23:57 05:30 WBC RBC Hgb Hct MCV MCH MCHC RDW Plt Count Lymph % (Auto) Benzie % (Auto) Lymph # Benzie # Baso # Seg Neutrophils % Seg Neuts % (Manual) Lymphocytes % (Manual) Monocytes % (Manual) Eosinophils % (Manual) Basophils % (Manual) Nucleated RBC % Seg Neutrophils # Seg Neutrophils # Man Lymphocytes # (Manual) Monocytes # (Manual) Eosinophils # (Manual) Basophils # (Manual) PT INR Fibrinogen dRVVT Confirm Interp Factor V Activity POC ABG pH POC ABG pCO2 POC ABG pO2 ABG pO2 ABG HCO3 ABG Base Excess ABG Hemoglobin Oxyhemoglobin Sodium Potassium Chloride Carbon Dioxide BUN Creatinine Glucose POC Glucose 106 H 127 H 122 H Lactic Acid Calcium Ionized Calcium Phosphorus Magnesium Direct Bilirubin AST ALT Alkaline Phosphatase Lactate Dehydrogenase Troponin T C-Reactive Protein Total Protein Albumin Prealbumin Triglycerides Cholesterol LDL Cholesterol Direct HDL Cholesterol 25-OH Vitamin D Total PTH Intact Urine pH Urine WBC (Auto) Urine Creatinine Urine Total Protein Fluid Total Protein Vancomycin Trough Rheumatoid Factor Complement C4 Miscellaneous Test Crossmatch 02/17/17 02/17/17 02/17/17 06:00 12:17 17:57 WBC RBC Hgb Hct MCV MCH MCHC RDW Plt Count Lymph % (Auto) Benzie % (Auto) Lymph # Benzie # Baso # Seg Neutrophils % Seg Neuts % (Manual) Lymphocytes % (Manual) Monocytes % (Manual) Eosinophils % (Manual) Basophils % (Manual) Nucleated RBC % Seg Neutrophils # Seg Neutrophils # Man Lymphocytes # (Manual) Monocytes # (Manual) Eosinophils # (Manual) Basophils # (Manual) PT INR Fibrinogen dRVVT Confirm Interp Factor V Activity POC ABG pH POC ABG pCO2 POC ABG pO2 ABG pO2 ABG HCO3 ABG Base Excess ABG Hemoglobin Oxyhemoglobin Sodium Potassium Chloride Carbon Dioxide BUN 94 H Creatinine 2.3 H Glucose 106 H POC Glucose 173 H 140 H Lactic Acid Calcium Ionized Calcium Phosphorus Magnesium Direct Bilirubin AST ALT Alkaline Phosphatase Lactate Dehydrogenase Troponin T C-Reactive Protein Total Protein Albumin Prealbumin Triglycerides Cholesterol LDL Cholesterol Direct HDL Cholesterol 25-OH Vitamin D Total PTH Intact Urine pH Urine WBC (Auto) Urine Creatinine Urine Total Protein Fluid Total Protein Vancomycin Trough Rheumatoid Factor Complement C4 Miscellaneous Test Crossmatch 02/18/17 02/18/17 02/18/17 00:20 05:30 06:14 WBC RBC Hgb Hct MCV MCH MCHC RDW Plt Count Lymph % (Auto) Benzie % (Auto) Lymph # Benzie # Baso # Seg Neutrophils % Seg Neuts % (Manual) Lymphocytes % (Manual) Monocytes % (Manual) Eosinophils % (Manual) Basophils % (Manual) Nucleated RBC % Seg Neutrophils # Seg Neutrophils # Man Lymphocytes # (Manual) Monocytes # (Manual) Eosinophils # (Manual) Basophils # (Manual) PT INR Fibrinogen dRVVT Confirm Interp Factor V Activity POC ABG pH POC ABG pCO2 POC ABG pO2 ABG pO2 ABG HCO3 ABG Base Excess ABG Hemoglobin Oxyhemoglobin Sodium 136 L Potassium Chloride 97.5 L Carbon Dioxide BUN 73 H Creatinine 1.9 H Glucose POC Glucose 132 H 106 H Lactic Acid Calcium Ionized Calcium Phosphorus Magnesium Direct Bilirubin AST ALT Alkaline Phosphatase Lactate Dehydrogenase Troponin T C-Reactive Protein Total Protein Albumin Prealbumin Triglycerides Cholesterol LDL Cholesterol Direct HDL Cholesterol 25-OH Vitamin D Total PTH Intact Urine pH Urine WBC (Auto) Urine Creatinine Urine Total Protein Fluid Total Protein Vancomycin Trough Rheumatoid Factor Complement C4 Miscellaneous Test Crossmatch 02/18/17 02/18/17 02/18/17 09:51 11:32 17:59 WBC 13.1 H RBC 2.77 L Hgb 7.6 L Hct 23.9 L MCV MCH MCHC RDW 19.0 H Plt Count Lymph % (Auto) Benzie % (Auto) 11.1 H Lymph # Benzie # 1.5 H Baso # Seg Neutrophils % Seg Neuts % (Manual) Lymphocytes % (Manual) Monocytes % (Manual) Eosinophils % (Manual) Basophils % (Manual) Nucleated RBC % Seg Neutrophils # 9.1 H Seg Neutrophils # Man Lymphocytes # (Manual) Monocytes # (Manual) Eosinophils # (Manual) Basophils # (Manual) PT INR Fibrinogen dRVVT Confirm Interp Factor V Activity POC ABG pH POC ABG pCO2 POC ABG pO2 ABG pO2 ABG HCO3 ABG Base Excess ABG Hemoglobin Oxyhemoglobin Sodium Potassium Chloride Carbon Dioxide BUN Creatinine Glucose POC Glucose 123 H 119 H Lactic Acid Calcium Ionized Calcium Phosphorus Magnesium Direct Bilirubin AST ALT Alkaline Phosphatase Lactate Dehydrogenase Troponin T C-Reactive Protein Total Protein Albumin Prealbumin Triglycerides Cholesterol LDL Cholesterol Direct HDL Cholesterol 25-OH Vitamin D Total PTH Intact Urine pH Urine WBC (Auto) Urine Creatinine Urine Total Protein Fluid Total Protein Vancomycin Trough Rheumatoid Factor Complement C4 Miscellaneous Test Crossmatch 02/18/17 02/19/17 02/19/17 23:47 05:36 09:45 WBC RBC Hgb Hct MCV MCH 27 L MCHC RDW 19.2 H Plt Count Lymph % (Auto) Benzie % (Auto) Lymph # Benzie # Baso # Seg Neutrophils % Seg Neuts % (Manual) Lymphocytes % (Manual) Monocytes % (Manual) Eosinophils % (Manual) Basophils % (Manual) Nucleated RBC % Seg Neutrophils # Seg Neutrophils # Man Lymphocytes # (Manual) Monocytes # (Manual) Eosinophils # (Manual) Basophils # (Manual) PT INR Fibrinogen dRVVT Confirm Interp Factor V Activity POC ABG pH POC ABG pCO2 POC ABG pO2 ABG pO2 ABG HCO3 ABG Base Excess ABG Hemoglobin Oxyhemoglobin Sodium Potassium Chloride Carbon Dioxide BUN Creatinine Glucose POC Glucose 110 H 121 H Lactic Acid Calcium Ionized Calcium Phosphorus Magnesium Direct Bilirubin AST ALT Alkaline Phosphatase Lactate Dehydrogenase Troponin T C-Reactive Protein Total Protein Albumin Prealbumin Triglycerides Cholesterol LDL Cholesterol Direct HDL Cholesterol 25-OH Vitamin D Total PTH Intact Urine pH Urine WBC (Auto) Urine Creatinine Urine Total Protein Fluid Total Protein Vancomycin Trough Rheumatoid Factor Complement C4 Miscellaneous Test Crossmatch 02/19/17 02/20/17 02/20/17 09:45 00:10 06:15 WBC RBC Hgb Hct MCV MCH MCHC RDW Plt Count Lymph % (Auto) Benzie % (Auto) Lymph # Benzie # Baso # Seg Neutrophils % Seg Neuts % (Manual) Lymphocytes % (Manual) Monocytes % (Manual) Eosinophils % (Manual) Basophils % (Manual) Nucleated RBC % Seg Neutrophils # Seg Neutrophils # Man Lymphocytes # (Manual) Monocytes # (Manual) Eosinophils # (Manual) Basophils # (Manual) PT INR Fibrinogen dRVVT Confirm Interp Factor V Activity POC ABG pH POC ABG pCO2 POC ABG pO2 ABG pO2 ABG HCO3 ABG Base Excess ABG Hemoglobin Oxyhemoglobin Sodium 136 L Potassium 5.1 H Chloride 97.6 L Carbon Dioxide 20 L 18 L BUN 110 H 135 H Creatinine 2.6 H 3.2 H Glucose 106 H 110 H POC Glucose 117 H Lactic Acid Calcium Ionized Calcium Phosphorus 4.70 H D 5.60 H Magnesium Direct Bilirubin AST ALT Alkaline Phosphatase Lactate Dehydrogenase Troponin T C-Reactive Protein Total Protein Albumin Prealbumin Triglycerides Cholesterol LDL Cholesterol Direct HDL Cholesterol 25-OH Vitamin D Total PTH Intact Urine pH Urine WBC (Auto) Urine Creatinine Urine Total Protein Fluid Total Protein Vancomycin Trough Rheumatoid Factor Complement C4 Miscellaneous Test Crossmatch 02/20/17 02/20/17 02/21/17 11:30 17:51 00:14 WBC RBC Hgb Hct MCV MCH MCHC RDW Plt Count Lymph % (Auto) Benzie % (Auto) Lymph # Benzie # Baso # Seg Neutrophils % Seg Neuts % (Manual) Lymphocytes % (Manual) Monocytes % (Manual) Eosinophils % (Manual) Basophils % (Manual) Nucleated RBC % Seg Neutrophils # Seg Neutrophils # Man Lymphocytes # (Manual) Monocytes # (Manual) Eosinophils # (Manual) Basophils # (Manual) PT INR Fibrinogen dRVVT Confirm Interp Factor V Activity POC ABG pH POC ABG pCO2 POC ABG pO2 ABG pO2 ABG HCO3 ABG Base Excess ABG Hemoglobin Oxyhemoglobin Sodium Potassium Chloride Carbon Dioxide BUN Creatinine Glucose POC Glucose 173 H 133 H 125 H Lactic Acid Calcium Ionized Calcium Phosphorus Magnesium Direct Bilirubin AST ALT Alkaline Phosphatase Lactate Dehydrogenase Troponin T C-Reactive Protein Total Protein Albumin Prealbumin Triglycerides Cholesterol LDL Cholesterol Direct HDL Cholesterol 25-OH Vitamin D Total PTH Intact Urine pH Urine WBC (Auto) Urine Creatinine Urine Total Protein Fluid Total Protein Vancomycin Trough Rheumatoid Factor Complement C4 Miscellaneous Test Crossmatch 02/21/17 02/21/17 02/21/17 04:09 05:03 11:58 WBC RBC Hgb Hct MCV MCH MCHC RDW Plt Count Lymph % (Auto) Benzie % (Auto) Lymph # Benzie # Baso # Seg Neutrophils % Seg Neuts % (Manual) Lymphocytes % (Manual) Monocytes % (Manual) Eosinophils % (Manual) Basophils % (Manual) Nucleated RBC % Seg Neutrophils # Seg Neutrophils # Man Lymphocytes # (Manual) Monocytes # (Manual) Eosinophils # (Manual) Basophils # (Manual) PT INR Fibrinogen dRVVT Confirm Interp Factor V Activity POC ABG pH POC ABG pCO2 POC ABG pO2 ABG pO2 ABG HCO3 ABG Base Excess ABG Hemoglobin Oxyhemoglobin Sodium 135 L Potassium Chloride Carbon Dioxide 20 L BUN 76 H Creatinine 2.0 H Glucose 125 H POC Glucose 134 H 139 H Lactic Acid Calcium Ionized Calcium Phosphorus Magnesium Direct Bilirubin AST ALT Alkaline Phosphatase Lactate Dehydrogenase Troponin T C-Reactive Protein Total Protein Albumin Prealbumin Triglycerides Cholesterol LDL Cholesterol Direct HDL Cholesterol 25-OH Vitamin D Total PTH Intact Urine pH Urine WBC (Auto) Urine Creatinine Urine Total Protein Fluid Total Protein Vancomycin Trough Rheumatoid Factor Complement C4 Miscellaneous Test Crossmatch 02/21/17 02/21/17 02/22/17 17:16 23:41 04:10 WBC RBC Hgb Hct MCV MCH MCHC RDW Plt Count Lymph % (Auto) Benzie % (Auto) Lymph # Benzie # Baso # Seg Neutrophils % Seg Neuts % (Manual) Lymphocytes % (Manual) Monocytes % (Manual) Eosinophils % (Manual) Basophils % (Manual) Nucleated RBC % Seg Neutrophils # Seg Neutrophils # Man Lymphocytes # (Manual) Monocytes # (Manual) Eosinophils # (Manual) Basophils # (Manual) PT INR Fibrinogen dRVVT Confirm Interp Factor V Activity POC ABG pH POC ABG pCO2 POC ABG pO2 ABG pO2 ABG HCO3 ABG Base Excess ABG Hemoglobin Oxyhemoglobin Sodium 135 L Potassium Chloride 97.7 L Carbon Dioxide 21 L BUN 101 H Creatinine 2.5 H Glucose 116 H POC Glucose 120 H 128 H Lactic Acid Calcium Ionized Calcium Phosphorus Magnesium Direct Bilirubin AST ALT Alkaline Phosphatase Lactate Dehydrogenase Troponin T C-Reactive Protein Total Protein Albumin 1.3 L Prealbumin Triglycerides Cholesterol LDL Cholesterol Direct HDL Cholesterol 25-OH Vitamin D Total PTH Intact Urine pH Urine WBC (Auto) Urine Creatinine Urine Total Protein Fluid Total Protein Vancomycin Trough Rheumatoid Factor Complement C4 Miscellaneous Test Crossmatch 02/22/17 02/22/17 02/22/17 06:03 11:38 18:19 WBC RBC Hgb Hct MCV MCH MCHC RDW Plt Count Lymph % (Auto) Benzie % (Auto) Lymph # Benzie # Baso # Seg Neutrophils % Seg Neuts % (Manual) Lymphocytes % (Manual) Monocytes % (Manual) Eosinophils % (Manual) Basophils % (Manual) Nucleated RBC % Seg Neutrophils # Seg Neutrophils # Man Lymphocytes # (Manual) Monocytes # (Manual) Eosinophils # (Manual) Basophils # (Manual) PT INR Fibrinogen dRVVT Confirm Interp Factor V Activity POC ABG pH POC ABG pCO2 POC ABG pO2 ABG pO2 ABG HCO3 ABG Base Excess ABG Hemoglobin Oxyhemoglobin Sodium Potassium Chloride Carbon Dioxide BUN Creatinine Glucose POC Glucose 126 H 147 H 121 H Lactic Acid Calcium Ionized Calcium Phosphorus Magnesium Direct Bilirubin AST ALT Alkaline Phosphatase Lactate Dehydrogenase Troponin T C-Reactive Protein Total Protein Albumin Prealbumin Triglycerides Cholesterol LDL Cholesterol Direct HDL Cholesterol 25-OH Vitamin D Total PTH Intact Urine pH Urine WBC (Auto) Urine Creatinine Urine Total Protein Fluid Total Protein Vancomycin Trough Rheumatoid Factor Complement C4 Miscellaneous Test Crossmatch 02/23/17 02/23/17 02/23/17 05:00 05:46 12:27 WBC RBC Hgb Hct MCV MCH MCHC RDW Plt Count Lymph % (Auto) Benzie % (Auto) Lymph # Benzie # Baso # Seg Neutrophils % Seg Neuts % (Manual) Lymphocytes % (Manual) Monocytes % (Manual) Eosinophils % (Manual) Basophils % (Manual) Nucleated RBC % Seg Neutrophils # Seg Neutrophils # Man Lymphocytes # (Manual) Monocytes # (Manual) Eosinophils # (Manual) Basophils # (Manual) PT INR Fibrinogen dRVVT Confirm Interp Factor V Activity POC ABG pH POC ABG pCO2 POC ABG pO2 ABG pO2 ABG HCO3 ABG Base Excess ABG Hemoglobin Oxyhemoglobin Sodium 136 L Potassium Chloride 97.1 L Carbon Dioxide BUN 50 H Creatinine 1.5 H Glucose POC Glucose 110 H 115 H Lactic Acid Calcium 8.1 L Ionized Calcium Phosphorus 1.90 L D Magnesium Direct Bilirubin AST ALT Alkaline Phosphatase Lactate Dehydrogenase Troponin T C-Reactive Protein Total Protein Albumin Prealbumin Triglycerides Cholesterol LDL Cholesterol Direct HDL Cholesterol 25-OH Vitamin D Total PTH Intact Urine pH Urine WBC (Auto) Urine Creatinine Urine Total Protein Fluid Total Protein Vancomycin Trough Rheumatoid Factor Complement C4 Miscellaneous Test Crossmatch 02/23/17 02/23/17 02/24/17 18:02 23:18 05:04 WBC RBC Hgb Hct MCV MCH MCHC RDW Plt Count Lymph % (Auto) Benzie % (Auto) Lymph # Benzie # Baso # Seg Neutrophils % Seg Neuts % (Manual) Lymphocytes % (Manual) Monocytes % (Manual) Eosinophils % (Manual) Basophils % (Manual) Nucleated RBC % Seg Neutrophils # Seg Neutrophils # Man Lymphocytes # (Manual) Monocytes # (Manual) Eosinophils # (Manual) Basophils # (Manual) PT INR Fibrinogen dRVVT Confirm Interp Factor V Activity POC ABG pH POC ABG pCO2 POC ABG pO2 ABG pO2 ABG HCO3 ABG Base Excess ABG Hemoglobin Oxyhemoglobin Sodium Potassium Chloride Carbon Dioxide BUN Creatinine Glucose POC Glucose 111 H 126 H 121 H Lactic Acid Calcium Ionized Calcium Phosphorus Magnesium Direct Bilirubin AST ALT Alkaline Phosphatase Lactate Dehydrogenase Troponin T C-Reactive Protein Total Protein Albumin Prealbumin Triglycerides Cholesterol LDL Cholesterol Direct HDL Cholesterol 25-OH Vitamin D Total PTH Intact Urine pH Urine WBC (Auto) Urine Creatinine Urine Total Protein Fluid Total Protein Vancomycin Trough Rheumatoid Factor Complement C4 Miscellaneous Test Crossmatch 02/24/17 02/24/17 02/24/17 05:20 10:05 11:34 WBC RBC 2.95 L Hgb 8.4 L Hct 25.7 L MCV MCH MCHC RDW 20.8 H Plt Count Lymph % (Auto) Benzie % (Auto) Lymph # Benzie # Baso # Seg Neutrophils % 71.8 H Seg Neuts % (Manual) Lymphocytes % (Manual) Monocytes % (Manual) Eosinophils % (Manual) Basophils % (Manual) Nucleated RBC % Seg Neutrophils # Seg Neutrophils # Man Lymphocytes # (Manual) Monocytes # (Manual) Eosinophils # (Manual) Basophils # (Manual) PT INR Fibrinogen dRVVT Confirm Interp Factor V Activity POC ABG pH POC ABG pCO2 POC ABG pO2 ABG pO2 ABG HCO3 ABG Base Excess ABG Hemoglobin Oxyhemoglobin Sodium 136 L Potassium Chloride 95.5 L Carbon Dioxide BUN 76 H Creatinine 2.2 H Glucose 109 H POC Glucose 123 H Lactic Acid Calcium Ionized Calcium Phosphorus Magnesium Direct Bilirubin AST ALT Alkaline Phosphatase Lactate Dehydrogenase Troponin T C-Reactive Protein Total Protein Albumin Prealbumin Triglycerides Cholesterol LDL Cholesterol Direct HDL Cholesterol 25-OH Vitamin D Total PTH Intact Urine pH Urine WBC (Auto) Urine Creatinine Urine Total Protein Fluid Total Protein Vancomycin Trough Rheumatoid Factor Complement C4 Miscellaneous Test Crossmatch 02/24/17 02/24/17 02/25/17 17:43 23:02 05:00 WBC RBC Hgb Hct MCV MCH MCHC RDW Plt Count Lymph % (Auto) Benzie % (Auto) Lymph # Benzie # Baso # Seg Neutrophils % Seg Neuts % (Manual) Lymphocytes % (Manual) Monocytes % (Manual) Eosinophils % (Manual) Basophils % (Manual) Nucleated RBC % Seg Neutrophils # Seg Neutrophils # Man Lymphocytes # (Manual) Monocytes # (Manual) Eosinophils # (Manual) Basophils # (Manual) PT INR Fibrinogen dRVVT Confirm Interp Factor V Activity POC ABG pH POC ABG pCO2 POC ABG pO2 ABG pO2 ABG HCO3 ABG Base Excess ABG Hemoglobin Oxyhemoglobin Sodium Potassium Chloride 96.8 L Carbon Dioxide BUN 94 H Creatinine 2.8 H Glucose 118 H POC Glucose 128 H 144 H Lactic Acid Calcium Ionized Calcium Phosphorus Magnesium Direct Bilirubin AST ALT Alkaline Phosphatase Lactate Dehydrogenase Troponin T C-Reactive Protein Total Protein Albumin Prealbumin Triglycerides Cholesterol LDL Cholesterol Direct HDL Cholesterol 25-OH Vitamin D Total PTH Intact Urine pH Urine WBC (Auto) Urine Creatinine Urine Total Protein Fluid Total Protein Vancomycin Trough Rheumatoid Factor Complement C4 Miscellaneous Test Crossmatch 02/25/17 02/25/17 02/25/17 05:32 11:44 18:18 WBC RBC Hgb Hct MCV MCH MCHC RDW Plt Count Lymph % (Auto) Benzie % (Auto) Lymph # Benzie # Baso # Seg Neutrophils % Seg Neuts % (Manual) Lymphocytes % (Manual) Monocytes % (Manual) Eosinophils % (Manual) Basophils % (Manual) Nucleated RBC % Seg Neutrophils # Seg Neutrophils # Man Lymphocytes # (Manual) Monocytes # (Manual) Eosinophils # (Manual) Basophils # (Manual) PT INR Fibrinogen dRVVT Confirm Interp Factor V Activity POC ABG pH POC ABG pCO2 POC ABG pO2 ABG pO2 ABG HCO3 ABG Base Excess ABG Hemoglobin Oxyhemoglobin Sodium Potassium Chloride Carbon Dioxide BUN Creatinine Glucose POC Glucose 118 H 106 H 210 H Lactic Acid Calcium Ionized Calcium Phosphorus Magnesium Direct Bilirubin AST ALT Alkaline Phosphatase Lactate Dehydrogenase Troponin T C-Reactive Protein Total Protein Albumin Prealbumin Triglycerides Cholesterol LDL Cholesterol Direct HDL Cholesterol 25-OH Vitamin D Total PTH Intact Urine pH Urine WBC (Auto) Urine Creatinine Urine Total Protein Fluid Total Protein Vancomycin Trough Rheumatoid Factor Complement C4 Miscellaneous Test Crossmatch 02/26/17 02/26/17 02/26/17 00:07 05:14 12:07 WBC RBC Hgb Hct MCV MCH MCHC RDW Plt Count Lymph % (Auto) Benzie % (Auto) Lymph # Benzie # Baso # Seg Neutrophils % Seg Neuts % (Manual) Lymphocytes % (Manual) Monocytes % (Manual) Eosinophils % (Manual) Basophils % (Manual) Nucleated RBC % Seg Neutrophils # Seg Neutrophils # Man Lymphocytes # (Manual) Monocytes # (Manual) Eosinophils # (Manual) Basophils # (Manual) PT INR Fibrinogen dRVVT Confirm Interp Factor V Activity POC ABG pH POC ABG pCO2 POC ABG pO2 ABG pO2 ABG HCO3 ABG Base Excess ABG Hemoglobin Oxyhemoglobin Sodium Potassium Chloride Carbon Dioxide BUN Creatinine Glucose POC Glucose 136 H 142 H 132 H Lactic Acid Calcium Ionized Calcium Phosphorus Magnesium Direct Bilirubin AST ALT Alkaline Phosphatase Lactate Dehydrogenase Troponin T C-Reactive Protein Total Protein Albumin Prealbumin Triglycerides Cholesterol LDL Cholesterol Direct HDL Cholesterol 25-OH Vitamin D Total PTH Intact Urine pH Urine WBC (Auto) Urine Creatinine Urine Total Protein Fluid Total Protein Vancomycin Trough Rheumatoid Factor Complement C4 Miscellaneous Test Crossmatch 02/26/17 02/26/17 02/27/17 18:35 23:54 06:25 WBC RBC Hgb Hct MCV MCH MCHC RDW Plt Count Lymph % (Auto) Benzie % (Auto) Lymph # Benzie # Baso # Seg Neutrophils % Seg Neuts % (Manual) Lymphocytes % (Manual) Monocytes % (Manual) Eosinophils % (Manual) Basophils % (Manual) Nucleated RBC % Seg Neutrophils # Seg Neutrophils # Man Lymphocytes # (Manual) Monocytes # (Manual) Eosinophils # (Manual) Basophils # (Manual) PT INR Fibrinogen dRVVT Confirm Interp Factor V Activity POC ABG pH POC ABG pCO2 POC ABG pO2 ABG pO2 ABG HCO3 ABG Base Excess ABG Hemoglobin Oxyhemoglobin Sodium Potassium Chloride Carbon Dioxide BUN Creatinine Glucose POC Glucose 155 H 150 H 138 H Lactic Acid Calcium Ionized Calcium Phosphorus Magnesium Direct Bilirubin AST ALT Alkaline Phosphatase Lactate Dehydrogenase Troponin T C-Reactive Protein Total Protein Albumin Prealbumin Triglycerides Cholesterol LDL Cholesterol Direct HDL Cholesterol 25-OH Vitamin D Total PTH Intact Urine pH Urine WBC (Auto) Urine Creatinine Urine Total Protein Fluid Total Protein Vancomycin Trough Rheumatoid Factor Complement C4 Miscellaneous Test Crossmatch 02/27/17 02/27/17 02/27/17 08:50 11:50 17:38 WBC RBC Hgb Hct MCV MCH MCHC RDW Plt Count Lymph % (Auto) Benzie % (Auto) Lymph # Benzie # Baso # Seg Neutrophils % Seg Neuts % (Manual) Lymphocytes % (Manual) Monocytes % (Manual) Eosinophils % (Manual) Basophils % (Manual) Nucleated RBC % Seg Neutrophils # Seg Neutrophils # Man Lymphocytes # (Manual) Monocytes # (Manual) Eosinophils # (Manual) Basophils # (Manual) PT INR Fibrinogen dRVVT Confirm Interp Factor V Activity POC ABG pH POC ABG pCO2 POC ABG pO2 ABG pO2 ABG HCO3 ABG Base Excess ABG Hemoglobin Oxyhemoglobin Sodium Potassium 3.2 L Chloride Carbon Dioxide BUN 95 H Creatinine 2.7 H Glucose 179 H POC Glucose 150 H 133 H Lactic Acid Calcium Ionized Calcium Phosphorus Magnesium Direct Bilirubin AST ALT Alkaline Phosphatase Lactate Dehydrogenase Troponin T C-Reactive Protein Total Protein Albumin Prealbumin Triglycerides Cholesterol LDL Cholesterol Direct HDL Cholesterol 25-OH Vitamin D Total PTH Intact Urine pH Urine WBC (Auto) Urine Creatinine Urine Total Protein Fluid Total Protein Vancomycin Trough Rheumatoid Factor Complement C4 Miscellaneous Test Crossmatch 02/27/17 02/28/17 02/28/17 23:55 05:23 06:10 WBC RBC Hgb Hct MCV MCH MCHC RDW Plt Count Lymph % (Auto) Benzie % (Auto) Lymph # Benzie # Baso # Seg Neutrophils % Seg Neuts % (Manual) Lymphocytes % (Manual) Monocytes % (Manual) Eosinophils % (Manual) Basophils % (Manual) Nucleated RBC % Seg Neutrophils # Seg Neutrophils # Man Lymphocytes # (Manual) Monocytes # (Manual) Eosinophils # (Manual) Basophils # (Manual) PT INR Fibrinogen dRVVT Confirm Interp Factor V Activity POC ABG pH POC ABG pCO2 POC ABG pO2 ABG pO2 ABG HCO3 ABG Base Excess ABG Hemoglobin Oxyhemoglobin Sodium 134 L Potassium 3.0 L Chloride 94.9 L Carbon Dioxide BUN 53 H Creatinine 1.9 H Glucose 138 H POC Glucose 134 H 164 H Lactic Acid Calcium Ionized Calcium Phosphorus 2.00 L D Magnesium Direct Bilirubin AST ALT Alkaline Phosphatase Lactate Dehydrogenase Troponin T C-Reactive Protein Total Protein Albumin Prealbumin Triglycerides Cholesterol LDL Cholesterol Direct HDL Cholesterol 25-OH Vitamin D Total PTH Intact Urine pH Urine WBC (Auto) Urine Creatinine Urine Total Protein Fluid Total Protein Vancomycin Trough Rheumatoid Factor Complement C4 Miscellaneous Test Crossmatch 02/28/17 02/28/17 02/28/17 12:18 17:54 23:47 WBC RBC Hgb Hct MCV MCH MCHC RDW Plt Count Lymph % (Auto) Benzie % (Auto) Lymph # Benzie # Baso # Seg Neutrophils % Seg Neuts % (Manual) Lymphocytes % (Manual) Monocytes % (Manual) Eosinophils % (Manual) Basophils % (Manual) Nucleated RBC % Seg Neutrophils # Seg Neutrophils # Man Lymphocytes # (Manual) Monocytes # (Manual) Eosinophils # (Manual) Basophils # (Manual) PT INR Fibrinogen dRVVT Confirm Interp Factor V Activity POC ABG pH POC ABG pCO2 POC ABG pO2 ABG pO2 ABG HCO3 ABG Base Excess ABG Hemoglobin Oxyhemoglobin Sodium Potassium Chloride Carbon Dioxide BUN Creatinine Glucose POC Glucose 135 H 140 H 144 H Lactic Acid Calcium Ionized Calcium Phosphorus Magnesium Direct Bilirubin AST ALT Alkaline Phosphatase Lactate Dehydrogenase Troponin T C-Reactive Protein Total Protein Albumin Prealbumin Triglycerides Cholesterol LDL Cholesterol Direct HDL Cholesterol 25-OH Vitamin D Total PTH Intact Urine pH Urine WBC (Auto) Urine Creatinine Urine Total Protein Fluid Total Protein Vancomycin Trough Rheumatoid Factor Complement C4 Miscellaneous Test Crossmatch 03/01/17 04:00 WBC RBC Hgb Hct MCV MCH MCHC RDW Plt Count Lymph % (Auto) Benzie % (Auto) Lymph # Benzie # Baso # Seg Neutrophils % Seg Neuts % (Manual) Lymphocytes % (Manual) Monocytes % (Manual) Eosinophils % (Manual) Basophils % (Manual) Nucleated RBC % Seg Neutrophils # Seg Neutrophils # Man Lymphocytes # (Manual) Monocytes # (Manual) Eosinophils # (Manual) Basophils # (Manual) PT INR Fibrinogen dRVVT Confirm Interp Factor V Activity POC ABG pH POC ABG pCO2 POC ABG pO2 ABG pO2 ABG HCO3 ABG Base Excess ABG Hemoglobin Oxyhemoglobin Sodium Potassium 3.0 L Chloride 97.0 L Carbon Dioxide BUN 81 H Creatinine 2.6 H Glucose 121 H POC Glucose Lactic Acid Calcium Ionized Calcium Phosphorus Magnesium Direct Bilirubin AST ALT Alkaline Phosphatase Lactate Dehydrogenase Troponin T C-Reactive Protein Total Protein Albumin Prealbumin Triglycerides Cholesterol LDL Cholesterol Direct HDL Cholesterol 25-OH Vitamin D Total PTH Intact Urine pH Urine WBC (Auto) Urine Creatinine Urine Total Protein Fluid Total Protein Vancomycin Trough Rheumatoid Factor Complement C4 Miscellaneous Test Crossmatch Allied health notes reviewed: case management
[2017-03-01] MEDS ORDERED: VANCOMYCIN PHARMACY TO DOSE IV SCH (10:00)
[2017-03-01] MEDS: DUONEB *Not for PRN Use IH SCH ×3 (10:05→20:17)
[2017-03-01] MEDS: HEPARIN SUB-Q SCH ×2 (10:17→21:25)
[2017-03-01] MEDS: PEPCID IV SCH (10:17)
--- NOTE | 2017-03-01 10:31 | Progress Note ---
Assessment and Plan Assessment: 1) Recurrent SIRS: new fever again ? - Likely due to recurrent Enterococcus bacteremia should r/o endocarditis 2) History of Peritonitis: from gastric perforation from dislodged PEG with significant ascites -S/P exlap, repair of gastric perforation with wedge gastrectomy, abdominal washout, drain placement on 10/05 3) History of Candidemia: -Blood cultures positive for Silvia albicans on 09/23 and 09/25 -Blood cultures negative on 09/30 -PICC line changed on 10/03 -Source ? gastric perf (PEG placed on 09/20) +/- TPN +/- central lines -TTE 10/07 no vegetations -PICC exchanged on 10/03 -fully treated with micafungin for 14 days last day 10/13 4) History CA-UTI s/p gutierrez exchanged 5) Diarrhea - ? etiology ? antibiotic-induced, not better. 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 from GI bleed 13) Recent abdominal wall abscess at surgical site-treated 14 ) Recent Enterococcal bacteremia from PICC line infection. 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 -S/P debridement at bedside - new wound cx 01/24 +Proteus and MDR Pseudomonas (resistant to meropenem and cefepime/sensitive to ceftazidime) and wound VAC placement -CRP=24 --> 8 16) Presumed VAP: sputum + MDR Pseudomonas / Proteus / pleural effusion s/p thoracentesis 17) Resp failure - better 18) Perforated bowel: Ct showed presumed perf bowel with free air Plan: -f/u blood cultures -repeat blood cx tomorrow -add vancomycin for now -get TTE poor prognosis Thank you Dr Pierre for your consultation, will follow up with you. Pauline Carias MD Infectious Diseases Specialist [facility] M [phone] O [phone] Subjective Date of service: 03/01/17 Principal diagnosis: Acute resp failure on MVS; S/P Acute CVA; Acute Encephalopathy; JUANITA Interval history: Interval history: remains on the vent, tachy on monitor, fever trending down Microbiology: Blood cultures: 09/13 neg 09/23 Silvia albicans 09/25 Silvia 09/29 neg 10/07 neg 11/05 neg 11/07 ngtd 10/ E faecalis 1 of 4 bottles 11/25 neg 12/27 neg 01/09 ngtd 02/14 ngtd 02/27 Enterococcus 1 of 4 bottles Urine cultures: 09/10 neg 09/13 neg 8/ 10-100K mixed species 10/07 neg 11/05 VRE 11/07 mixed bacteria Respiratory cultures: 09/07 neg 09/13 neg 09/23 neg 11/07 MDR Pseudomonas 11/21 tracheal + VRE 01/09 Pseudomonas x 3 and Proteues Pleural effusion: ngtd Wound cultures: 10/17 abd wall wound purulence + Pseudomonas MDR 01/24 GNRs Stool cultures: cath tip 11/07 + [employer] Current Antimicrobials: none Previous Antimicrobials: Zosyn 10/07 Vancomycin PO 10/01 Metronidazole 09/25 Micafungin 09/27-10/13 Meropenem 10/10 Vanco 10/17 zosyn 10/21 Cefepime 11/10 vancomyin 11/07 fluconazole 10/19 cefepime 10/29levaquin 11/05 vanco 11/23 meropenem 01/08 ceftaz 01/30 Objective - Exam Narrative Exam: General appearance: alert non communicative, on the vent via trach in mild resp distress, no following commands Eyes: anicteric sclera, moist conjunctivae; PERRLA HENT: Atraumatic; oropharynx limited; Normal external ears. +NGT with greenish secretion Neck: +trach in place; supple, no thyromegaly or lymphadenopathy Lungs: brit coarse BS CV: tachy Abdomen: Soft, tender, +old PEG site no drainage. +iliostomy. 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 Necrotic tissue noted on the wound edges and in the wound bed Now with a wound VAC Psych: somnolent . Neuro: alert non verbal on the vent. Lines: PICC / gutierrez - Constitutional Vitals: Vital Signs Temp Pulse Resp BP Pulse Ox 98.7 F 113 H 32 H 126/82 94 03/01/17 08:00 03/01/17 08:45 03/01/17 08:45 03/01/17 08:45 03/01/17 08:45 Temperature -Last 24 Hours Temperature 98.7 F Temperature 98.4 F Temperature 99.4 F Temperature 99.2 F Temperature 99.1 F Temperature 100.8 F Temperature 100.8 F - Labs CBC & Chem 7: 02/24/17 10:05 03/01/17 04:00 Labs: Abnormal lab results 02/28/17 02/28/17 02/28/17 Range/Units 12:18 17:54 23:47 Potassium (3.6-5.0) mmol/L Chloride (98-107) mmol/L BUN (7-17) mg/dL Creatinine (0.7-1.2) mg/dL Glucose (65-100) mg/dL POC Glucose 135 H 140 H 144 H (70-105) 03/01/17 Range/Units 04:00 Potassium 3.0 L (3.6-5.0) mmol/L Chloride 97.0 L (98-107) mmol/L BUN 81 H (7-17) mg/dL Creatinine 2.6 H (0.7-1.2) mg/dL Glucose 121 H (65-100) mg/dL POC Glucose (70-105)
--- NOTE | 2017-03-01 11:20 | Progress Note ---
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 UF as tolerated. Patient's serum creatinine is noted to be low - due to wasting of muscle mass. Needs to be maintained on dialysis at this time * Adjust Ca bath with dialysis * Rate control per cardiology * Transfuse pRBC per primary team. Epogen TIW prn * Vent management per pulm/CCM * Pressors prn for MAP>65 * Dose medications for renal function Subjective Date of service: 03/01/17 Principal diagnosis: Acute resp failure on MVS; S/P Acute CVA; Acute Encephalopathy; JUANITA Interval history: No acute events overnight. Objective - Vital Signs Vital signs: Vital Signs - 12hr 02/28/17 02/28/17 02/28/17 23:30 23:32 23:45 Temperature Pulse Rate 102 H 110 H 96 H Pulse Rate [ From Monitor] Respiratory 19 16 Rate Blood Pressure 131/69 153/88 139/70 O2 Sat by Pulse 97 100 100 Oximetry O2 Sat by Pulse Oximetry [ Anterior Bilateral Throughout] O2 Sat by Pulse Oximetry [ Assessment] 03/01/17 03/01/17 03/01/17 00:00 00:15 00:30 Temperature 99.4 F Pulse Rate 94 H 95 H 92 H Pulse Rate [ From Monitor] Respiratory 16 22 16 Rate Blood Pressure 125/74 117/75 111/69 O2 Sat by Pulse 100 100 100 Oximetry O2 Sat by Pulse Oximetry [ Anterior Bilateral Throughout] O2 Sat by Pulse Oximetry [ Assessment] 03/01/17 03/01/17 03/01/17 00:45 01:00 01:15 Temperature Pulse Rate 95 H 96 H 97 H Pulse Rate [ From Monitor] Respiratory 17 25 H 22 Rate Blood Pressure 123/78 131/75 123/78 O2 Sat by Pulse 100 100 100 Oximetry O2 Sat by Pulse Oximetry [ Anterior Bilateral Throughout] O2 Sat by Pulse Oximetry [ Assessment] 03/01/17 03/01/17 03/01/17 01:30 01:45 02:00 Temperature Pulse Rate 89 94 H 97 H Pulse Rate [ From Monitor] Respiratory 13 20 23 Rate Blood Pressure 131/75 138/80 137/76 O2 Sat by Pulse 100 100 100 Oximetry O2 Sat by Pulse Oximetry [ Anterior Bilateral Throughout] O2 Sat by Pulse Oximetry [ Assessment] 03/01/17 03/01/17 03/01/17 02:15 02:30 02:45 Temperature Pulse Rate 95 H 94 H 96 H Pulse Rate [ From Monitor] Respiratory 19 16 15 Rate Blood Pressure 123/77 133/81 126/77 O2 Sat by Pulse 98 100 100 Oximetry O2 Sat by Pulse Oximetry [ Anterior Bilateral Throughout] O2 Sat by Pulse Oximetry [ Assessment] 03/01/17 03/01/17 03/01/17 03:00 03:15 03:30 Temperature Pulse Rate 99 H 98 H 96 H Pulse Rate [ From Monitor] Respiratory 14 14 14 Rate Blood Pressure 134/80 140/83 140/83 O2 Sat by Pulse 100 100 100 Oximetry O2 Sat by Pulse Oximetry [ Anterior Bilateral Throughout] O2 Sat by Pulse Oximetry [ Assessment] 03/01/17 03/01/17 03/01/17 03:45 04:00 04:03 Temperature 98.4 F Pulse Rate 100 H 105 H Pulse Rate [ From Monitor] Respiratory 19 20 Rate Blood Pressure 154/81 147/89 O2 Sat by Pulse 99 100 Oximetry O2 Sat by Pulse Oximetry [ Anterior Bilateral Throughout] O2 Sat by Pulse 100 Oximetry [ Assessment] 03/01/17 03/01/17 03/01/17 04:15 04:31 04:45 Temperature Pulse Rate 103 H 104 H 104 H Pulse Rate [ From Monitor] Respiratory 26 H 22 24 Rate Blood Pressure 159/87 162/78 181/82 O2 Sat by Pulse 100 100 100 Oximetry O2 Sat by Pulse Oximetry [ Anterior Bilateral Throughout] O2 Sat by Pulse Oximetry [ Assessment] 03/01/17 03/01/17 03/01/17 05:01 05:15 05:30 Temperature Pulse Rate 102 H 101 H 105 H Pulse Rate [ From Monitor] Respiratory 22 17 22 Rate Blood Pressure 146/79 148/79 136/79 O2 Sat by Pulse 100 100 100 Oximetry O2 Sat by Pulse Oximetry [ Anterior Bilateral Throughout] O2 Sat by Pulse Oximetry [ Assessment] 03/01/17 03/01/17 03/01/17 05:45 06:01 06:15 Temperature Pulse Rate 105 H 105 H 106 H Pulse Rate [ From Monitor] Respiratory 22 21 22 Rate Blood Pressure 152/88 152/80 129/80 O2 Sat by Pulse 100 100 100 Oximetry O2 Sat by Pulse Oximetry [ Anterior Bilateral Throughout] O2 Sat by Pulse Oximetry [ Assessment] 03/01/17 03/01/17 03/01/17 06:30 06:45 07:00 Temperature Pulse Rate 107 H 105 H 109 H Pulse Rate [ From Monitor] Respiratory 20 20 22 Rate Blood Pressure 147/85 141/83 124/62 O2 Sat by Pulse 100 100 85 Oximetry O2 Sat by Pulse Oximetry [ Anterior Bilateral Throughout] O2 Sat by Pulse Oximetry [ Assessment] 03/01/17 03/01/17 03/01/17 07:15 07:30 07:45 Temperature Pulse Rate 106 H 104 H 106 H Pulse Rate [ From Monitor] Respiratory 13 17 22 Rate Blood Pressure 120/69 136/81 136/81 O2 Sat by Pulse 86 100 100 Oximetry O2 Sat by Pulse Oximetry [ Anterior Bilateral Throughout] O2 Sat by Pulse Oximetry [ Assessment] 03/01/17 03/01/17 03/01/17 08:00 08:15 08:30 Temperature 98.7 F Pulse Rate 107 H 111 H 110 H Pulse Rate [ 107 H From Monitor] Respiratory 18 19 24 Rate Blood Pressure 127/80 126/87 137/82 O2 Sat by Pulse 100 100 97 Oximetry O2 Sat by Pulse Oximetry [ Anterior Bilateral Throughout] O2 Sat by Pulse Oximetry [ Assessment] 03/01/17 03/01/17 03/01/17 08:45 10:00 10:15 Temperature 98.7 F Pulse Rate 113 H 111 H 111 H Pulse Rate [ From Monitor] Respiratory 32 H 34 H Rate Blood Pressure 126/82 124/71 124/71 O2 Sat by Pulse 94 Oximetry O2 Sat by Pulse 94 Oximetry [ Anterior Bilateral Throughout] O2 Sat by Pulse Oximetry [ Assessment] 03/01/17 03/01/17 03/01/17 10:30 10:48 11:04 Temperature Pulse Rate 114 H 114 H 115 H Pulse Rate [ From Monitor] Respiratory Rate Blood Pressure 119/74 127/69 122/75 O2 Sat by Pulse Oximetry O2 Sat by Pulse Oximetry [ Anterior Bilateral Throughout] O2 Sat by Pulse Oximetry [ Assessment] - General Appearance General appearance: intubated (via trach) EENT: ATNC Neck: other (trach collar) Respiratory: Present: Ronchi Cardiology: regular, S1S2 Gastrointestinal: hypoactive bowel sounds Integumentary: warm and dry Neurologic: other (No meaningful response to tactile/verbal stimuli) Musculoskeletal: other (dependent edema) - Lab 02/24/17 10:05 03/01/17 04:00 Most recent lab results ABG pH 7.450 pH Units (7.350-7.450) 12/05/16 Unknown ABG pCO2 29.6 mm Hg 12/05/16 Unknown ABG pO2 75.2 mm Hg (80.0-90.0) L 12/05/16 Unknown ABG HCO3 20.1 mmol/L (20.0-26.0) 12/05/16 Unknown ABG O2 Saturation 96.8 % (95.0-99.0) 12/05/16 Unknown Calcium 9.9 mg/dL (8.4-10.2) 03/01/17 04:00 Phosphorus 3.50 mg/dL (2.5-4.5) D 03/01/17 04:00 Magnesium 1.70 mg/dL (1.7-2.3) 03/01/17 04:00 Urine Creatinine 19.7 mg/dL (0.1-20.0) 11/12/16 10:18 Urine Sodium 36 mEq/L 09/16/16 19:19 Urine Total Protein 16 mg/dL (5-11.8) H 09/16/16 19:19
[2017-03-01] MEDS: HEPARIN IV PRN (14:57)
[2017-03-01] MEDS: REGLAN IV SCH ×2 (17:09→21:25)
--- NOTE | 2017-03-01 18:23 | Progress Note ---
Assessment and Plan Assessment and plan: Patient is 46-year-old woman with a history of hypertension, diabetes, asthma, hyperlipidemia, chronic kidney disease and anxiety , who was brought in by family because, she couldn't get her words out, her face was also twisted, she was admitted for acute CVA and accelerated hypertension, she had a hx of poor adherence with her medications, and uncontrolled htn. Patient's SBP on admission was noted be greater than 260. TPA was started but this was discontinued after 5 minutes because her blood pressure became uncontrolled. The TPA was not initiated again because the patient was outside the TPA window. Fever case dw ID - Likely due to recurrent Enterococcus bacteremia should r/o endocarditis -obtain blood cx, TTE, and on vanco Status post cardiac arrest , 11/21/16 on Mechanical ventilation >96 hrs, >3 months Vent Dependant Respirtory failure secodnary to Anoxic Brain injury S/P Tracheostomy Severe Sepsis with septic shock; has completed multiple courses of abx Surgical wound infection/gram-negative sepsis/candidemia/peritonitis - On TPN ESRD - on HD - Cr 1.9 today Acute CVA with infarct - Neurology input appreciated - CT shows continued evolution of left MCA infarct with slight mass effect and edema, and there is no hemorrhage - PRINCE showed hyperdynamic with ef of 75%, neither clot nor septal defect seen - MRA Brain shows near complete occlusion of M2 and M3 of the left MCA - Repeat CT scan done on 09/11, shows stable findings - carotid doppler negative - Echo shows preserved systolic function but does show some left ventricular diastolic dysfunction - continue asa and statin Persistent vegetative state - This patient's needs placement at SNF - She was denied for LTACH Nosocomial acquired aspiration pneumonia/sepsis/UTI/PERITONITIS - Has been on multiple antibiotics, expect recurrent sepsis due to now known Bowel perforation not amendable to surgery due to clinical condition A. fib with RVR -On amio drip, cannot change to PO due to persistent nausea and vomiting Diabetes type 2. -Continue sliding-scale regular insulin and Accu-Cheks. Hyperlipidemia. Continue statin Severe Protein calorie Malnutrition/Adult failure to thrive - TPN Anemia requiring multiple transfusions/acute blood loss -stable, keep hg above 7 Sacral decubitus ulcer - Status post debridement -Wound vac in place Disposition. Very poor prognosis. DNR - The high probability of a clinically significant, sudden or life threatening deterioration of the [neurologic, CV] system(s) required my full and direct attention, intervention and personal management. The aggregate critical care time was [35] minutes. This time is in addition to time spent performing reported procedures but includes the following: [x] Data Review and interpretation [x] Patient assessment and monitoring of vital signs [x] Documentation [x] Medication orders and management History Interval history: patient seen and examined, remains unresponsive on the ventilator. febrile overnight, no vomiting was tachypneic and tachycardic overnight Hospitalist Physical - Physical exam Narrative exam: GEN: Ill appearing, trach, staring into space,, non purposeful movement NECK: SUPPLE, trach in place, ngt in place and to suction. CVS:Irregular Irregular with LUNGS/CHEST: NORMAL CHEST EXPANSION B, GOOD AIR ENTRY B, tachypena ABD: SOFT, no grimise on abdominal palpation, Ostomy bags at two side by side fistula site. GBS, NO REBOUND OR GUARDING, peg tube in place EXT/SKIN: NO SIGNIFICANT EDEMA BUT WITH UNSTAGEABLE SACRAL DECUB, wound vac inplace MSK: +spontaneous non purposeful movement NEURO: on a ventilator and unresponsive despite being off sedation PSY: Comatose, - Constitutional Vitals: Temp Pulse Resp BP Pulse Ox 98.7 F 105 H 31 H 115/69 97 03/01/17 14:52 03/01/17 15:05 03/01/17 14:52 03/01/17 15:05 03/01/17 16:00 General appearance: Present: no acute distress, well-nourished Results - Labs CBC & Chem 7: 02/24/17 10:05 03/01/17 04:00 Labs: Laboratory Last Values WBC 10.2 K/mm3 (4.5-11.0) 02/24/17 10:05 RBC 2.95 M/mm3 (3.65-5.03) L 02/24/17 10:05 Hgb 8.4 gm/dl (10.1-14.3) L 02/24/17 10:05 Hct 25.7 % (30.3-42.9) L 02/24/17 10:05 MCV 87 fl (79-97) 02/24/17 10:05 MCH 28 pg (28-32) 02/24/17 10:05 MCHC 33 % (30-34) 02/24/17 10:05 RDW 20.8 % (13.2-15.2) H 02/24/17 10:05 Plt Count 333 K/mm3 (140-440) 02/24/17 10:05 Lymph % (Auto) 19.8 % (13.4-35.0) 02/24/17 10:05 Carter % (Auto) 7.2 % (0.0-7.3) 02/24/17 10:05 Eos % (Auto) 0.7 % (0.0-4.3) 02/24/17 10:05 Baso % (Auto) 0.5 % (0.0-1.8) 02/24/17 10:05 Lymph # 2.0 K/mm3 (1.2-5.4) 02/24/17 10:05 Carter # 0.7 K/mm3 (0.0-0.8) 02/24/17 10:05 Eos # 0.1 K/mm3 (0.0-0.4) 02/24/17 10:05 Baso # 0.0 K/mm3 (0.0-0.1) 02/24/17 10:05 Add Manual Diff Complete 12/19/16 05:02 Total Counted 100 12/19/16 05:02 Seg Neutrophils % 71.8 % (40.0-70.0) H 02/24/17 10:05 Seg Neuts % (Manual) 64.0 % (40.0-70.0) 12/19/16 05:02 Band Neutrophils % 15.0 % 12/19/16 05:02 Lymphocytes % (Manual) 13.0 % (13.4-35.0) L 12/19/16 05:02 Reactive Lymphs % (Man) 0 % 12/19/16 05:02 Monocytes % (Manual) 7.0 % (0.0-7.3) 12/19/16 05:02 Eosinophils % (Manual) 0 % (0.0-4.3) 12/19/16 05:02 Basophils % (Manual) 1.0 % (0.0-1.8) 12/19/16 05:02 Metamyelocytes % 0 % 12/19/16 05:02 Myelocytes % 0 % 12/19/16 05:02 Promyelocytes % 0 % 12/19/16 05:02 Blast Cells % 0 % 12/19/16 05:02 Nucleated RBC % 1.0 % (0.0-0.9) H 12/19/16 05:02 Seg Neutrophils # 7.3 K/mm3 (1.8-7.7) 02/24/17 10:05 Seg Neutrophils # Man 12.9 K/mm3 (1.8-7.7) H 12/19/16 05:02 Band Neutrophils # 3.0 K/mm3 12/19/16 05:02 Lymphocytes # (Manual) 2.6 K/mm3 (1.2-5.4) 12/19/16 05:02 Abs React Lymphs (Man) 0.0 K/mm3 12/19/16 05:02 Monocytes # (Manual) 1.4 K/mm3 (0.0-0.8) H 12/19/16 05:02 Eosinophils # (Manual) 0.0 K/mm3 (0.0-0.4) 12/19/16 05:02 Basophils # (Manual) 0.2 K/mm3 (0.0-0.1) H 12/19/16 05:02 Metamyelocytes # 0.0 K/mm3 12/19/16 05:02 Myelocytes # 0.0 K/mm3 12/19/16 05:02 Promyelocytes # 0.0 K/mm3 12/19/16 05:02 Blast Cells # 0.0 K/mm3 12/19/16 05:02 Pathologist Review 09/13/16 04:00 WBC Morphology Not Reportable 12/19/16 05:02 Hypersegmented Neuts Not Reportable 12/19/16 05:02 Hyposegmented Neuts Not Reportable 12/19/16 05:02 Hypogranular Neuts Not Reportable 12/19/16 05:02 Smudge Cells Not Reportable 12/19/16 05:02 Toxic Granulation Not Reportable 12/19/16 05:02 Toxic Vacuolation Not Reportable 12/19/16 05:02 Dohle Bodies Not Reportable 12/19/16 05:02 Pelger-Huet Anomaly Not Reportable 12/19/16 05:02 Jasmina Rods Not Reportable 12/19/16 05:02 Platelet Estimate Consistent w auto 12/19/16 05:02 Clumped Platelets Not Reportable 12/19/16 05:02 Plt Clumps, EDTA Not Reportable 12/19/16 05:02 Large Platelets Not Reportable 12/19/16 05:02 Giant Platelets Not Reportable 12/19/16 05:02 Platelet Satelliting Not Reportable 12/19/16 05:02 Plt Morphology Comment Not Reportable 12/19/16 05:02 RBC Morphology Not Reportable 12/19/16 05:02 Dimorphic RBCs Not Reportable 12/19/16 05:02 Polychromasia Not Reportable 12/19/16 05:02 Hypochromasia Not Reportable 12/19/16 05:02 Poikilocytosis Not Reportable 12/19/16 05:02 Anisocytosis Not Reportable 12/19/16 05:02 Microcytosis Not Reportable 12/19/16 05:02 Macrocytosis Not Reportable 12/19/16 05:02 Spherocytes Not Reportable 12/19/16 05:02 Pappenheimer Bodies Not Reportable 12/19/16 05:02 Sickle Cells Not Reportable 12/19/16 05:02 Target Cells Few 12/19/16 05:02 Tear Drop Cells Not Reportable 12/19/16 05:02 Ovalocytes Not Reportable 12/19/16 05:02 Stomatocytes Rare 12/03/16 04:00 Helmet Cells Not Reportable 12/19/16 05:02 [place] Bodies Not Reportable 12/19/16 05:02 [place] Rings Not Reportable 12/19/16 05:02 Chuck Cells Not Reportable 12/19/16 05:02 Bite Cells Not Reportable 12/19/16 05:02 Crenated Cell Not Reportable 12/19/16 05:02 Elliptocytes Not Reportable 12/19/16 05:02 Acanthocytes (Spur) Not Reportable 12/19/16 05:02 Rouleaux Not Reportable 12/19/16 05:02 Hemoglobin C Crystals Not Reportable 12/19/16 05:02 Schistocytes Not Reportable 12/19/16 05:02 Malaria parasites Not Reportable 12/19/16 05:02 ESR > 140.0 mm/Hr (0-20) 09/08/16 11:48 Jun Bodies Not Reportable 12/19/16 05:02 Hem Pathologist Commnt No 12/19/16 05:02 PT 15.4 Sec. (12.2-14.9) H 01/13/17 15:50 INR 1.16 (0.87-1.13) H 01/13/17 15:50 APTT 33.0 Sec. (24.2-36.6) 10/09/16 03:45 Thrombin Time 16.8 Sec. (15.1-19.6) 09/03/16 00:10 Fibrinogen 750 mg/dl (211-480) H 09/08/16 11:48 Lupus Anticoagulant see below 09/12/16 09:59 LA PTT Baseline See scanned report 09/12/16 09:59 dRVVT Confirm Interp Positive (Negative) H 09/12/16 09:59 dRVVT Screen 50:50 See scanned report 09/12/16 09:59 dRVVT Mix Interpret See scanned report 09/12/16 09:59 Protein C Antigen 122 % (70-140) 09/08/16 15:35 Free Protein S 97 % normal (50-147) 09/08/16 15:35 Total Protein S 109 % (70-140) 09/08/16 15:35 Antithrombin III Ag 100 % (80-120) 09/08/16 15:35 Heparin Anti-Xa, Unfract Negative (Negative) 09/29/16 13:35 Factor V Activity 182 % (65-150) H 09/08/16 15:35 POC ABG pH 7.436 (7.35-7.45) 01/20/17 12: ABG pH 7.450 pH Units (7.350-7.450) 12/05/16 Unknown POC ABG pCO2 35.3 (35-45) 01/20/17 12:17 ABG pCO2 29.6 mm Hg 12/05/16 Unknown POC ABG pO2 70 (80-105) L 01/20/17 12: ABG pO2 75.2 mm Hg (80.0-90.0) L 12/05/16 Unknown POC ABG HCO3 23.8 01/20/17 12: ABG HCO3 20.1 mmol/L (20.0-26.0) 12/05/16 Unknown POC ABG Total CO2 25 01/20/17 12:17 POC ABG O2 Sat 94 01/20/17 12:17 ABG O2 Saturation 96.8 % (95.0-99.0) 12/05/16 Unknown ABG O2 Content 9.9 (0.0-44) 12/05/16 Unknown POC ABG Base Excess 0 01/20/17 12:17 ABG Base Excess -3.4 mmol/L (-2.0-3.0) L 12/05/16 Unknown ABG Hemoglobin 7.4 gm/dl (12.0-16.0) L 12/05/16 Unknown ABG Carboxyhemoglobin 1.8 % (0.0-5.0) 12/05/16 Unknown ABG Methemoglobin 0.6 % (0.0-1.5) 12/05/16 Unknown Oxyhemoglobin 94.5 % (95.0-99.0) L 12/05/16 Unknown FiO2 30 % 01/20/17 12:17 Sodium 138 mmol/L (137-145) 03/01/17 04:00 Potassium 3.0 mmol/L (3.6-5.0) L 03/01/17 04:00 Chloride 97.0 mmol/L (98-107) L 03/01/17 04:00 Carbon Dioxide 23 mmol/L (22-30) 03/01/17 04:00 Anion Gap 21 mmol/L 03/01/17 04:00 BUN 81 mg/dL (7-17) H 03/01/17 04:00 Creatinine 2.6 mg/dL (0.7-1.2) H 03/01/17 04:00 Estimated GFR 24 ml/min 03/01/17 04:00 BUN/Creatinine Ratio 31 % 03/01/17 04:00 Glucose 121 mg/dL (65-100) H 03/01/17 04:00 POC Glucose 165 (70-105) H 03/01/17 12:02 Osmolality 351 Mosm/kg 09/16/16 11:47 Lactic Acid 2.30 mmol/L (0.7-2.0) H* 01/09/17 08:22 Calcium 9.9 mg/dL (8.4-10.2) 03/01/17 04:00 Ionized Calcium 6.0 mg/dL (4.8-5.6) H 02/15/17 19:08 Phosphorus 3.50 mg/dL (2.5-4.5) D 03/01/17 04:00 Magnesium 1.70 mg/dL (1.7-2.3) 03/01/17 04:00 Total Bilirubin 0.50 mg/dL (0.1-1.2) 02/22/17 04:10 Direct Bilirubin 0.2 mg/dL (0-0.2) 01/28/17 04:00 Indirect Bilirubin 0.3 mg/dL 01/28/17 04:00 AST 10 units/L (5-40) 02/22/17 04:10 ALT 7 units/L (7-56) 02/22/17 04:10 Alkaline Phosphatase 95 units/L (35-129) 02/22/17 04:10 Ammonia 27.0 umol/L (25-60) 09/07/16 08:37 Lactate Dehydrogenase 170 units/L (91-180) 01/13/17 15:50 Total Creatine Kinase 121 units/L (30-135) 09/29/16 20:12 CK-MB (CK-2) < 1.0 ng/mL (0.0-4.0) 09/29/16 20:12 CK-MB (CK-2) Rel Index 0.8 (0-4) 09/29/16 20:12 Troponin T 0.204 ng/mL (0.00-0.029) H* 09/29/16 20:12 C-Reactive Protein 8.10 mg/dL (0.00-1.30) H 01/31/17 11:12 Total Protein 7.4 g/dL (6.3-8.2) 02/22/17 04:10 Albumin 1.3 g/dL (3.9-5) L 02/22/17 04:10 Albumin/Globulin Ratio 0.2 % 02/22/17 04:10 Prealbumin 0.110 g/L (0.200-0.400) L 12/29/16 05:15 Triglycerides 55 mg/dL (2-149) 02/06/17 04:45 Cholesterol 31 mg/dL (50-199) L 09/29/16 20:12 LDL Cholesterol Direct 4 mg/dL (50-130) L 09/29/16 20:12 HDL Cholesterol 3 mg/dL (40-59) L 09/29/16 20:12 Cholesterol/HDL Ratio 10.33 % 09/29/16 20:12 Angiotensin Convert Enz See scanned report 09/08/16 11:48 Renin 0.99 ng/mL/h (0.25-5.82) 10/07/16 10:56 Aldosterone <1 ng/dL () 10/07/16 10:56 Aldosterone/Renin Dir see below 10/07/16 10:56 Serotonin Release Assay See scanned report 09/29/16 13:35 25-OH Vitamin D Total 13 ng/mL (30-100) L 02/15/17 19:08 25-Hydroxy Vitamin D2 . 02/15/17 19:08 25-Hydroxy Vitamin D3 . 02/15/17 19:08 TSH 1.010 mlU/mL (0.270-4.200) 09/07/16 08:37 HCG, Qual Negative (Negative) 09/03/16 00:10 PTH Intact 10.88 pg/mL (15-65) L 02/15/17 19:08 Total Cortisol 18.2 mcg/dL () 02/02/17 20:09 Urine Color Yellow (Yellow) 11/05/16 13:09 Urine Turbidity Clear (Clear) 11/05/16 13:09 Urine pH 9.0 (5.0-7.0) H 11/05/16 13:09 Ur Specific [place] 1.011 (1.003-1.030) 11/05/16 13:09 Urine Protein 100 mg/dl mg/dL (Negative) 11/05/16 13:09 Urine Glucose (UA) Neg mg/dL (Negative) 11/05/16 13:09 Urine Ketones Neg mg/dL (Negative) 11/05/16 13:09 Urine Blood Neg (Negative) 11/05/16 13:09 Urine Nitrite Neg (Negative) 11/05/16 13:09 Urine Bilirubin Neg (Negative) 11/05/16 13:09 Urine Urobilinogen < 2.0 mg/dL (<2.0) 11/05/16 13:09 Ur Leukocyte Esterase Neg (Negative) 11/05/16 13:09 Urine WBC (Auto) 4.0 /HPF (0.0-6.0) 11/05/16 13:09 Urine RBC (Auto) 1.0 /HPF (0.0-6.0) 11/05/16 13:09 U Epithel Cells (Auto) 1.0 /HPF (0-13.0) 10/07/16 18:30 Urine Bacteria (Auto) 4+ /HPF (Negative) 11/05/16 13:09 Urine WBC Clumps 2+ /HPF 09/07/16 02:47 Hyaline Casts 4 /LPF 09/07/16 02:47 Urine Mucus Few /HPF 10/07/16 18:30 Urine Yeast (Budding) 3+ /HPF 10/07/16 18:30 Urine Eosinophils None seen (None Seen) 09/07/16 16:00 Urine Total Volume 950 11/12/16 10:18 Urine Creatinine 19.7 mg/dL (0.1-20.0) 11/12/16 10:18 Height (in) 65.0 inches 11/12/16 10:18 Weight (lb) 181.0 lbs 11/12/16 10:18 Creatinine Clearance 5 11/12/16 10:18 Urine Sodium 36 mEq/L 09/16/16 19:19 Urine Total Protein 16 mg/dL (5-11.8) H 09/16/16 19:19 Fluid Type Pleural 01/13/17 12:10 Fluid Color Yellow 01/13/17 12:10 Fluid Appearance Hazy 01/13/17 12:10 Fluid WBC 182 /mm3 01/13/17 12:10 Fluid RBC 41 /mm3 01/13/17 12:10 Fluid Seg Neutrophils 85.0 % 01/13/17 12:10 Fluid Lymphocytes 8.0 % 01/13/17 12:10 Fluid Reactive Lymphs 0 % 01/13/17 12:10 Fluid Monocytes 6.0 % 01/13/17 12:10 Fluid Eosinophils 1.0 % 01/13/17 12:10 Fluid Basophils 0 % 01/13/17 12:10 Fluid Total Protein 3.0 (15.0-45.0) L 01/13/17 12:10 Fluid LDH 1322 01/13/17 12:10 Fluid Comment Diff performed 01/13/17 12:10 Vancomycin Trough 2.3 ug/mL (5.0-20.0) L 09/21/16 13:00 Random Vancomycin 16.5 ug/mL (0-40.0) 11/28/16 09:45 Urine Opiates Screen Presumptive negative 09/03/16 15:11 Urine Methadone Screen Presumptive positive 09/03/16 15:11 Ur Barbiturates Screen Presumptive positive 09/03/16 15:11 Ur Phencyclidine Scrn Presumptive negative 09/03/16 15:11 Ur Amphetamines Screen Presumptive negative 09/03/16 15:11 U Benzodiazepines Scrn Presumptive negative 09/03/16 15:11 Urine Cocaine Screen Presumptive negative 09/03/16 15:11 U Marijuana (THC) Screen Presumptive positive 09/03/16 15:11 Drugs of Abuse Note Disclamer 09/03/16 15:11 Rheumatoid Factor 24 IU/ml (0-13) H 09/08/16 11:48 SAHIL Screen Negative (Negative) 09/07/16 09:20 Proteinase 3 (PR3) Ab <1.0 AI (<1.0) 09/07/16 09:20 Myeloperoxidase Ab <1.0 AI (<1.0) 09/07/16 09:20 Sjogren's Antibody <1.0 AI (<1.0) 09/08/16 15:35 Scl-70 Scleroderma Ab <1.0 AI (<1.0) 09/08/16 15:35 Centromere B Antibody <1.0 AI (<1.0) 09/08/16 12:02 Heparin-induced Plt Ab Negative (Negative) 09/29/16 13:35 UF Heparin High Dose 11 % Release 09/29/16 13:35 SUDHIR UFH Low Dose 0.1 6 % Release 09/29/16 13:35 SUDHIR UFH Low Dose 0.5 8 % Release 09/29/16 13:35 Cardiolipid IgG Ab <14 GPL (<=14) 09/12/16 09:59 Cardiolipid IgA Ab <11 APL (<=11) 09/12/16 09:59 Cardiolipid IgM Ab <12 MPL (<=12) 09/12/16 09:59 Complement C3 148 mg/dL (90-180) 09/07/16 09:20 Complement C4 58 mg/dL (16-47) H 09/07/16 09:20 RPR Nonreactive (Nonreactive) 09/08/16 11:48 Hepatitis A IgM Ab Non-reactive (NonReactive) 09/24/16 14:40 Hep Bs Antigen Non-reactive (Negative) 09/24/16 14:40 Hep B Core IgM Ab Non-reactive (NonReactive) 09/24/16 14:40 Hepatitis C Antibody Non-reactive (NonReactive) 09/24/16 14:40 HIV 1&2 Antibody Rapid Non react (Non React) 09/08/16 11:48 HIV P24 Antigen Non react (Non React) 09/08/16 11:48 Miscellaneous Test Flexitest 1 H 01/09/17 18:45 Blood Type A POSITIVE 02/12/17 10:25 Antibody Screen Negative 02/12/17 10:25 DELORIS Antibody Screen Negative 11/24/16 11:20 Crossmatch See Detail 02/12/17 10:25
[2017-03-01] MEDS ORDERED: INTRALIPID 20% 250 ML IV SCH (20:00)
[2017-03-01] MEDS ORDERED: TPN ADULT IV SCH (20:00)
[2017-03-01] MEDS: VANCOMYCIN VIAL 1,000 MG in NACL 0.9% 100 ML IV SCH (21:32)
[2017-03-02] MEDS: REGLAN IV SCH ×4 (00:09→23:45)
[2017-03-02] MEDS: CORDARONE 900 MG in D5W 482 ML IV SCH (01:51)
[2017-03-02] MEDS: HumuLIN R SUB-Q SCH ×4 (01:54→17:32)
[2017-03-02 03:28] LABS: Calcium 9.1 mg/dL (8.4-10.2)
[2017-03-02] MEDS: LEVOPHED DRIP 4 MG/NS 250 ML 4 MG/250 ML BAG IV SCH (04:00)
[2017-03-02] MEDS: DUONEB *Not for PRN Use IH SCH ×3 (08:17→20:16)
[2017-03-02] MEDS ORDERED: MAGNESIUM SULFATE 2GM/50ML 2 GM/50 ML BAG IV ONE (09:00)
[2017-03-02] MEDS ORDERED: KPHOS 20 MMOL in NACL 0.9% 250ML 250 ML IV ONE (09:00)
--- NOTE | 2017-03-02 09:01 | Progress Note ---
Assessment and Plan Assessment * Oliguric acute kidney injury secondary to ATN on CKD - baseline SCr 1.7mg/dL; likely now ESRD * Enteroccous bacteremia - Mar 01 * GI bleed * Sepsis * Acute CVA - left MCA with midline shift * s/p Cardiac arrest * Encephalopathy * Atrial fibrillation w/ RVR * Enteric fistula * Acute hypoxic respiratory failure * Left renal artery stenosis * Anemia Plan: * Patient w/ positive blood cx - Enterococcus. Case discussed with pulmonary/ critical care. Will plan for dialysis early am tomorrow and remove permcath following treatment * Abx per ID * Adjust Ca bath with dialysis * Rate control per cardiology * Transfuse pRBC per primary team. Epogen TIW prn * Vent management per pulm/CCM * Pressors prn for MAP>65 * Dose medications for renal function Subjective Date of service: 03/02/17 Principal diagnosis: Acute resp failure on MVS; S/P Acute CVA; Acute Encephalopathy; JUANITA Interval history: 24h events reviewed. Objective - Vital Signs Vital signs: Vital Signs - 12hr 03/01/17 03/01/17 03/01/17 21:15 21:30 21:45 Temperature Pulse Rate 103 H 105 H 106 H Pulse Rate [ From Monitor] Pulse Rate [ Throughout] Respiratory 29 H 22 21 Rate Respiratory Rate [ Throughout] Blood Pressure 76/43 76/52 77/50 O2 Sat by Pulse 95 95 97 Oximetry O2 Sat by Pulse Oximetry [ Assessment] 03/01/17 03/01/17 03/01/17 22:00 22:15 22:31 Temperature Pulse Rate 92 H 110 H 102 H Pulse Rate [ From Monitor] Pulse Rate [ Throughout] Respiratory 26 H 18 15 Rate Respiratory Rate [ Throughout] Blood Pressure 87/54 84/49 77/50 O2 Sat by Pulse 88 99 100 Oximetry O2 Sat by Pulse Oximetry [ Assessment] 03/01/17 03/01/17 03/01/17 22:45 23:00 23:15 Temperature Pulse Rate 122 H 107 H 108 H Pulse Rate [ From Monitor] Pulse Rate [ Throughout] Respiratory 25 H 20 19 Rate Respiratory Rate [ Throughout] Blood Pressure 77/50 86/45 86/45 O2 Sat by Pulse 90 97 94 Oximetry O2 Sat by Pulse Oximetry [ Assessment] 03/01/17 03/01/17 03/01/17 23:24 23:30 23:45 Temperature 98.9 F Pulse Rate 104 H 107 H Pulse Rate [ From Monitor] Pulse Rate [ Throughout] Respiratory 24 21 Rate Respiratory Rate [ Throughout] Blood Pressure 74/40 74/40 O2 Sat by Pulse 93 90 Oximetry O2 Sat by Pulse Oximetry [ Assessment] 03/01/17 03/02/17 03/02/17 23:59 00:00 00:15 Temperature Pulse Rate 104 H 106 H 100 H Pulse Rate [ 100 H From Monitor] Pulse Rate [ Throughout] Respiratory 23 24 Rate Respiratory Rate [ Throughout] Blood Pressure 81/42 81/42 74/40 O2 Sat by Pulse 98 97 97 Oximetry O2 Sat by Pulse 100 Oximetry [ Assessment] 03/02/17 03/02/17 03/02/17 00:30 00:45 01:00 Temperature Pulse Rate 100 H 99 H 97 H Pulse Rate [ From Monitor] Pulse Rate [ Throughout] Respiratory 18 25 H 22 Rate Respiratory Rate [ Throughout] Blood Pressure 78/38 78/38 75/37 O2 Sat by Pulse 99 97 97 Oximetry O2 Sat by Pulse Oximetry [ Assessment] 03/02/17 03/02/17 03/02/17 01:15 01:30 01:45 Temperature Pulse Rate 95 H 92 H 101 H Pulse Rate [ From Monitor] Pulse Rate [ Throughout] Respiratory 21 21 29 H Rate Respiratory Rate [ Throughout] Blood Pressure 81/42 66/42 66/42 O2 Sat by Pulse 98 97 90 Oximetry O2 Sat by Pulse Oximetry [ Assessment] 03/02/17 03/02/17 03/02/17 02:00 02:15 02:31 Temperature Pulse Rate 97 H 98 H 96 H Pulse Rate [ From Monitor] Pulse Rate [ Throughout] Respiratory 21 18 24 Rate Respiratory Rate [ Throughout] Blood Pressure 86/46 92/51 92/51 O2 Sat by Pulse 95 95 96 Oximetry O2 Sat by Pulse Oximetry [ Assessment] 03/02/17 03/02/17 03/02/17 02:45 03:00 03:15 Temperature Pulse Rate 96 H 96 H 94 H Pulse Rate [ From Monitor] Pulse Rate [ Throughout] Respiratory 19 23 23 Rate Respiratory Rate [ Throughout] Blood Pressure 92/51 76/40 76/40 O2 Sat by Pulse 95 Oximetry O2 Sat by Pulse Oximetry [ Assessment] 03/02/17 03/02/17 03/02/17 03:31 03:45 04:00 Temperature 98 F Pulse Rate 97 H 93 H 98 H Pulse Rate [ 89 From Monitor] Pulse Rate [ Throughout] Respiratory 19 23 26 H Rate Respiratory Rate [ Throughout] Blood Pressure 76/40 76/40 86/49 O2 Sat by Pulse 97 Oximetry O2 Sat by Pulse Oximetry [ Assessment] 03/02/17 03/02/17 03/02/17 04:15 04:30 04:45 Temperature Pulse Rate 90 103 H 102 H Pulse Rate [ From Monitor] Pulse Rate [ Throughout] Respiratory 21 19 19 Rate Respiratory Rate [ Throughout] Blood Pressure 74/40 83/58 83/58 O2 Sat by Pulse Oximetry O2 Sat by Pulse Oximetry [ Assessment] 03/02/17 03/02/17 03/02/17 05:00 05:15 05:30 Temperature Pulse Rate 108 H 106 H 107 H Pulse Rate [ From Monitor] Pulse Rate [ Throughout] Respiratory 27 H 24 26 H Rate Respiratory Rate [ Throughout] Blood Pressure 185/82 193/89 182/84 O2 Sat by Pulse Oximetry O2 Sat by Pulse Oximetry [ Assessment] 03/02/17 03/02/17 03/02/17 05:45 06:00 06:15 Temperature Pulse Rate 108 H 107 H 105 H Pulse Rate [ From Monitor] Pulse Rate [ Throughout] Respiratory 24 26 H 25 H Rate Respiratory Rate [ Throughout] Blood Pressure 184/90 180/84 153/77 O2 Sat by Pulse Oximetry O2 Sat by Pulse Oximetry [ Assessment] 03/02/17 03/02/17 03/02/17 06:31 06:45 07:00 Temperature Pulse Rate 109 H 106 H 100 H Pulse Rate [ From Monitor] Pulse Rate [ Throughout] Respiratory 21 28 H 25 H Rate Respiratory Rate [ Throughout] Blood Pressure 120/56 98/52 136/76 O2 Sat by Pulse Oximetry O2 Sat by Pulse Oximetry [ Assessment] 03/02/17 03/02/17 03/02/17 07:15 07:30 07:45 Temperature Pulse Rate 98 H 97 H 116 H Pulse Rate [ From Monitor] Pulse Rate [ Throughout] Respiratory 22 23 20 Rate Respiratory Rate [ Throughout] Blood Pressure 148/73 137/70 127/81 O2 Sat by Pulse Oximetry O2 Sat by Pulse Oximetry [ Assessment] 03/02/17 03/02/17 03/02/17 08:00 08:15 08:25 Temperature 98.4 F Pulse Rate 124 H 112 H Pulse Rate [ 101 H From Monitor] Pulse Rate [ 126 H Throughout] Respiratory 20 34 H Rate Respiratory 29 H Rate [ Throughout] Blood Pressure 127/73 168/87 O2 Sat by Pulse 97 Oximetry O2 Sat by Pulse Oximetry [ Assessment] 03/02/17 03/02/17 08:30 08:40 Temperature Pulse Rate 122 H Pulse Rate [ From Monitor] Pulse Rate [ 126 H Throughout] Respiratory 30 H Rate Respiratory 29 H Rate [ Throughout] Blood Pressure 127/73 O2 Sat by Pulse Oximetry O2 Sat by Pulse Oximetry [ Assessment] - General Appearance General appearance: well-developed, chronically ill EENT: ATNC Neck: other (Trach iin place) Respiratory: Present: Ronchi Cardiology: regular, S1S2 Gastrointestinal: hypoactive bowel sounds Neurologic: other (no meaningful response to tactile/verbal stimuli) Musculoskeletal: other (dependent edema) Psychiatric: cooperative - Lab 02/24/17 10:05 03/02/17 03:05 Most recent lab results ABG pH 7.450 pH Units (7.350-7.450) 12/05/16 Unknown ABG pCO2 29.6 mm Hg 12/05/16 Unknown ABG pO2 75.2 mm Hg (80.0-90.0) L 12/05/16 Unknown ABG HCO3 20.1 mmol/L (20.0-26.0) 12/05/16 Unknown ABG O2 Saturation 96.8 % (95.0-99.0) 12/05/16 Unknown Calcium 9.1 mg/dL (8.4-10.2) 03/02/17 03:05 Phosphorus 1.70 mg/dL (2.5-4.5) L D 03/02/17 03:05 Magnesium 1.40 mg/dL (1.7-2.3) L 03/02/17 03:05 Urine Creatinine 19.7 mg/dL (0.1-20.0) 11/12/16 10:18 Urine Sodium 36 mEq/L 09/16/16 19:19 Urine Total Protein 16 mg/dL (5-11.8) H 09/16/16 19:19
[2017-03-02] MEDS: HEPARIN SUB-Q SCH ×2 (09:09→23:44)
[2017-03-02] MEDS: PEPCID IV SCH (09:09)
--- NOTE | 2017-03-02 10:23 | Progress Note ---
Assessment and Plan Acute Hypoxemic Respiratory Failure (now with exacerbation and back on MVS) Hypertension (unable to receive p.o. meds) Atrial Fibrillation with RVR s/p tracheostomy Acute encephalopathy s/p CVA Oropharyngeal dysphagia Enterococcal bacteremia sepsis syndrome Sacral Decubitus Ulcer (s/p surgical debridement) Anemia Obesity JUANITA now on hemodialysis Enteric Fistula (Discussed case with ID and Nephrology; will plan for dialysis in am & then pull vas-cath thereafter with plan to replce 72hrs later on monday) - keep on with daily PSV trials as tolerated - continue scheduled IV metoprolol with hold parameters - follow 2D ECHO re: ? SBE - stop Amiodarone drip once rate better controlled - continue to hold tube feeds due to continued intolerance; continue reglan at 10mg IV q8h - continue NGT to LIS - remains on amiodarone drip for persistent tachycardia - prn CXR's at this point - appreciate surgery input - continue fentanyl patch for pain issues especially s/p debridement - continue wound care per WCT and RN's (she is s/p surgical debridement) - continue anti-infectives per ID recs (Vancomycin now) - prn CRP & lactate levels if clinically indicated (Follow WBC also) - continue TPN administration (Change to PPN re: vascular access issues) - continue robinul & scopolamine for secretion control - continue to wean FiO2 for sats > 94% - continue bronchodilators and pulmonary toilet - VAP bundle addressed - continue to follow electrolytes and correct as necessary - continue GI & VTE prophylaxis - Continue flu & pneumovax per protocol - ethics consult placed and pending .....she remains critically ill on life sustaining interventions including MVS and at risk for further deterioration including ....35' CCT ....care plan discussed at length during team rounds ...mcc prognosis remains guarded and this has intermittently been conveyed to family Subjective Date of service: 03/02/17 Principal diagnosis: Acute resp failure on MVS; S/P Acute CVA; Acute Encephalopathy; JUANITA Interval history: Patient is seen today for: Acute resp failure on MVS; S/P Acute CVA; Acute Encephalopathy; JUANITA Seen and examined at bedside; 24hour events reviewed; nursing and respiratory care staff consulted; no adverse overnight events reported to me; remains on MVS ; AMS is persistent; now growing entereococcuss spp. in blood; hypotensive and started on levophed; no gross bleeding; did not tolerate PSV trials Objective Vital Signs - 12hr 03/01/17 03/01/17 03/01/17 22:31 22:45 23:00 Temperature Pulse Rate 102 H 122 H 107 H Pulse Rate [ From Monitor] Pulse Rate [ Throughout] Respiratory 15 25 H 20 Rate Respiratory Rate [ Throughout] Blood Pressure 77/50 77/50 86/45 O2 Sat by Pulse 100 90 97 Oximetry O2 Sat by Pulse Oximetry [ Assessment] 03/01/17 03/01/17 03/01/17 23:15 23:24 23:30 Temperature 98.9 F Pulse Rate 108 H 104 H Pulse Rate [ From Monitor] Pulse Rate [ Throughout] Respiratory 19 24 Rate Respiratory Rate [ Throughout] Blood Pressure 86/45 74/40 O2 Sat by Pulse 94 93 Oximetry O2 Sat by Pulse Oximetry [ Assessment] 03/01/17 03/01/17 03/02/17 23:45 23:59 00:00 Temperature Pulse Rate 107 H 104 H 106 H Pulse Rate [ 100 H From Monitor] Pulse Rate [ Throughout] Respiratory 21 23 Rate Respiratory Rate [ Throughout] Blood Pressure 74/40 81/42 81/42 O2 Sat by Pulse 90 98 97 Oximetry O2 Sat by Pulse 100 Oximetry [ Assessment] 03/02/17 03/02/17 03/02/17 00:15 00:30 00:45 Temperature Pulse Rate 100 H 100 H 99 H Pulse Rate [ From Monitor] Pulse Rate [ Throughout] Respiratory 24 18 25 H Rate Respiratory Rate [ Throughout] Blood Pressure 74/40 78/38 78/38 O2 Sat by Pulse 97 99 97 Oximetry O2 Sat by Pulse Oximetry [ Assessment] 03/02/17 03/02/17 03/02/17 01:00 01:15 01:30 Temperature Pulse Rate 97 H 95 H 92 H Pulse Rate [ From Monitor] Pulse Rate [ Throughout] Respiratory 22 21 21 Rate Respiratory Rate [ Throughout] Blood Pressure 75/37 81/42 66/42 O2 Sat by Pulse 97 98 97 Oximetry O2 Sat by Pulse Oximetry [ Assessment] 03/02/17 03/02/17 03/02/17 01:45 02:00 02:15 Temperature Pulse Rate 101 H 97 H 98 H Pulse Rate [ From Monitor] Pulse Rate [ Throughout] Respiratory 29 H 21 18 Rate Respiratory Rate [ Throughout] Blood Pressure 66/42 86/46 92/51 O2 Sat by Pulse 90 95 95 Oximetry O2 Sat by Pulse Oximetry [ Assessment] 03/02/17 03/02/17 03/02/17 02:31 02:45 03:00 Temperature Pulse Rate 96 H 96 H 96 H Pulse Rate [ From Monitor] Pulse Rate [ Throughout] Respiratory 24 19 23 Rate Respiratory Rate [ Throughout] Blood Pressure 92/51 92/51 76/40 O2 Sat by Pulse 96 95 Oximetry O2 Sat by Pulse Oximetry [ Assessment] 03/02/17 03/02/17 03/02/17 03:15 03:31 03:45 Temperature Pulse Rate 94 H 97 H 93 H Pulse Rate [ From Monitor] Pulse Rate [ Throughout] Respiratory 23 19 23 Rate Respiratory Rate [ Throughout] Blood Pressure 76/40 76/40 76/40 O2 Sat by Pulse 97 Oximetry O2 Sat by Pulse Oximetry [ Assessment] 03/02/17 03/02/17 03/02/17 04:00 04:15 04:30 Temperature 98 F Pulse Rate 98 H 90 103 H Pulse Rate [ 89 From Monitor] Pulse Rate [ Throughout] Respiratory 26 H 21 19 Rate Respiratory Rate [ Throughout] Blood Pressure 86/49 74/40 83/58 O2 Sat by Pulse Oximetry O2 Sat by Pulse Oximetry [ Assessment] 03/02/17 03/02/17 03/02/17 04:45 05:00 05:15 Temperature Pulse Rate 102 H 108 H 106 H Pulse Rate [ From Monitor] Pulse Rate [ Throughout] Respiratory 19 27 H 24 Rate Respiratory Rate [ Throughout] Blood Pressure 83/58 185/82 193/89 O2 Sat by Pulse Oximetry O2 Sat by Pulse Oximetry [ Assessment] 03/02/17 03/02/17 03/02/17 05:30 05:45 06:00 Temperature Pulse Rate 107 H 108 H 107 H Pulse Rate [ From Monitor] Pulse Rate [ Throughout] Respiratory 26 H 24 26 H Rate Respiratory Rate [ Throughout] Blood Pressure 182/84 184/90 180/84 O2 Sat by Pulse Oximetry O2 Sat by Pulse Oximetry [ Assessment] 03/02/17 03/02/17 03/02/17 06:15 06:31 06:45 Temperature Pulse Rate 105 H 109 H 106 H Pulse Rate [ From Monitor] Pulse Rate [ Throughout] Respiratory 25 H 21 28 H Rate Respiratory Rate [ Throughout] Blood Pressure 153/77 120/56 98/52 O2 Sat by Pulse Oximetry O2 Sat by Pulse Oximetry [ Assessment] 03/02/17 03/02/17 03/02/17 07:00 07:15 07:30 Temperature Pulse Rate 100 H 98 H 97 H Pulse Rate [ From Monitor] Pulse Rate [ Throughout] Respiratory 25 H 22 23 Rate Respiratory Rate [ Throughout] Blood Pressure 136/76 148/73 137/70 O2 Sat by Pulse Oximetry O2 Sat by Pulse Oximetry [ Assessment] 03/02/17 03/02/17 03/02/17 07:45 08:00 08:15 Temperature 98.4 F Pulse Rate 116 H 124 H 112 H Pulse Rate [ 101 H From Monitor] Pulse Rate [ Throughout] Respiratory 20 20 34 H Rate Respiratory Rate [ Throughout] Blood Pressure 127/81 127/73 168/87 O2 Sat by Pulse 97 Oximetry O2 Sat by Pulse Oximetry [ Assessment] 03/02/17 03/02/17 03/02/17 08:25 08:30 08:40 Temperature Pulse Rate 122 H Pulse Rate [ From Monitor] Pulse Rate [ 126 H 126 H Throughout] Respiratory 30 H Rate Respiratory 29 H 29 H Rate [ Throughout] Blood Pressure 127/73 O2 Sat by Pulse Oximetry O2 Sat by Pulse Oximetry [ Assessment] Constitutional: appears uncomfortable, other (not tracking) Eyes: non-icteric, other (tracheostomy tube in midline of neck) ENT: oropharynx moist, oropharyngeal exudate pre, other (midline tracheostomy tube) Neck: supple, no lymphadenopathy, no JVD, other (no thyromegaly) Effort: mildly labored Ascultation: Bilateral: diminished breath sounds, rhonchi (and referred upper airway sounds) Percussion: Bilateral: not dull Cardiovascular: regular rate and rhythm, other (no rubs / murmurs) Gastrointestinal: hypoactive bowel sounds, soft, non-tender, non-distended, other (RLQ & LUQ stomas with colostomy bags) Integumentary: decubitus ulcer (sacral; stage 4 s/p surgical debridement), other (no rash; no cellulitis; poor turgor) Extremities: no cyanosis, pulses normal, no ischemia or petechiae, edema (1+ bilaterally) Neurologic: pupils equal and round, unable to assess, other (encephalopathic) Psychiatric: other (unable to assess) CBC and BMP: 02/24/17 10:05 03/02/17 03:05 ABG, PT/INR, D-dimer: ABG POC ABG pH 7.436 (7.35-7.45) 01/20/17 12:17 ABG pH 7.450 pH Units (7.350-7.450) 12/05/16 Unknown POC ABG pCO2 35.3 (35-45) 01/20/17 12: ABG pCO2 29.6 mm Hg 12/05/16 Unknown POC ABG pO2 70 (80-105) L 01/20/17 12: ABG pO2 75.2 mm Hg (80.0-90.0) L 12/05/16 Unknown POC ABG HCO3 23.8 01/20/17 12: POC ABG Total CO2 25 01/20/17 12: POC ABG O2 Sat 94 01/20/17 12: ABG O2 Saturation 96.8 % (95.0-99.0) 12/05/16 Unknown PT/INR, D-dimer PT 15.4 Sec. (12.2-14.9) H 01/13/17 15:50 INR 1.16 (0.87-1.13) H 01/13/17 15:50 Abnormal lab findings: Abnormal Labs 09/03/16 09/03/16 09/03/16 00:03 00:10 00:10 WBC 13.9 H RBC 5.95 H Hgb Hct 44.0 H MCV 74 L MCH 22 L MCHC RDW 17.5 H Plt Count Lymph % (Auto) [place] % (Auto) Lymph # [place] # Baso # Seg Neutrophils % Seg Neuts % (Manual) Lymphocytes % (Manual) 54.0 H Monocytes % (Manual) Eosinophils % (Manual) Basophils % (Manual) Nucleated RBC % Seg Neutrophils # Seg Neutrophils # Man Lymphocytes # (Manual) 7.5 H Monocytes # (Manual) Eosinophils # (Manual) Basophils # (Manual) PT INR Fibrinogen dRVVT Confirm Interp Factor V Activity POC ABG pH POC ABG pCO2 POC ABG pO2 ABG pO2 ABG HCO3 ABG Base Excess ABG Hemoglobin Oxyhemoglobin Sodium Potassium 2.8 L* Chloride Carbon Dioxide 21 L BUN Creatinine 1.7 H Glucose 159 H POC Glucose 177 H Lactic Acid Calcium Ionized Calcium Phosphorus Magnesium Direct Bilirubin AST ALT Alkaline Phosphatase Lactate Dehydrogenase Troponin T C-Reactive Protein Total Protein Albumin Prealbumin Triglycerides Cholesterol LDL Cholesterol Direct HDL Cholesterol 25-OH Vitamin D Total PTH Intact Urine pH Urine WBC (Auto) Urine Creatinine Urine Total Protein Fluid Total Protein Vancomycin Trough Rheumatoid Factor Complement C4 Miscellaneous Test Crossmatch 09/03/16 09/03/16 09/03/16 12:12 15:07 16:20 WBC RBC Hgb Hct MCV MCH MCHC RDW Plt Count Lymph % (Auto) [place] % (Auto) Lymph # [place] # Baso # Seg Neutrophils % Seg Neuts % (Manual) Lymphocytes % (Manual) Monocytes % (Manual) Eosinophils % (Manual) Basophils % (Manual) Nucleated RBC % Seg Neutrophils # Seg Neutrophils # Man Lymphocytes # (Manual) Monocytes # (Manual) Eosinophils # (Manual) Basophils # (Manual) PT INR Fibrinogen dRVVT Confirm Interp Factor V Activity POC ABG pH 7.452 H POC ABG pCO2 POC ABG pO2 ABG pO2 ABG HCO3 ABG Base Excess ABG Hemoglobin Oxyhemoglobin Sodium Potassium Chloride Carbon Dioxide BUN Creatinine Glucose POC Glucose 178 H Lactic Acid Calcium Ionized Calcium Phosphorus 2.20 L Magnesium 1.60 L Direct Bilirubin AST ALT Alkaline Phosphatase Lactate Dehydrogenase Troponin T C-Reactive Protein Total Protein Albumin Prealbumin Triglycerides Cholesterol LDL Cholesterol Direct HDL Cholesterol 25-OH Vitamin D Total PTH Intact Urine pH Urine WBC (Auto) Urine Creatinine Urine Total Protein Fluid Total Protein Vancomycin Trough Rheumatoid Factor Complement C4 Miscellaneous Test Crossmatch 09/03/16 09/03/16 09/03/16 17:57 17:58 23:50 WBC RBC Hgb Hct MCV MCH MCHC RDW Plt Count Lymph % (Auto) [place] % (Auto) Lymph # [place] # Baso # Seg Neutrophils % Seg Neuts % (Manual) Lymphocytes % (Manual) Monocytes % (Manual) Eosinophils % (Manual) Basophils % (Manual) Nucleated RBC % Seg Neutrophils # Seg Neutrophils # Man Lymphocytes # (Manual) Monocytes # (Manual) Eosinophils # (Manual) Basophils # (Manual) PT INR Fibrinogen dRVVT Confirm Interp Factor V Activity POC ABG pH POC ABG pCO2 POC ABG pO2 ABG pO2 ABG HCO3 ABG Base Excess ABG Hemoglobin Oxyhemoglobin Sodium Potassium Chloride Carbon Dioxide BUN Creatinine Glucose POC Glucose 162 H 145 H Lactic Acid Calcium Ionized Calcium Phosphorus 2.30 L Magnesium Direct Bilirubin AST ALT Alkaline Phosphatase Lactate Dehydrogenase Troponin T C-Reactive Protein Total Protein Albumin Prealbumin Triglycerides Cholesterol LDL Cholesterol Direct HDL Cholesterol 25-OH Vitamin D Total PTH Intact Urine pH Urine WBC (Auto) Urine Creatinine Urine Total Protein Fluid Total Protein Vancomycin Trough Rheumatoid Factor Complement C4 Miscellaneous Test Crossmatch 09/04/16 09/04/16 09/04/16 03:31 03:31 05:42 WBC RBC Hgb 9.7 L D Hct MCV 72 L MCH 23 L MCHC RDW 17.5 H Plt Count Lymph % (Auto) 11.1 L [place] % (Auto) Lymph # [place] # Baso # Seg Neutrophils % 84.3 H Seg Neuts % (Manual) Lymphocytes % (Manual) Monocytes % (Manual) Eosinophils % (Manual) Basophils % (Manual) Nucleated RBC % Seg Neutrophils # 8.9 H Seg Neutrophils # Man Lymphocytes # (Manual) Monocytes # (Manual) Eosinophils # (Manual) Basophils # (Manual) PT INR Fibrinogen dRVVT Confirm Interp Factor V Activity POC ABG pH POC ABG pCO2 POC ABG pO2 ABG pO2 ABG HCO3 ABG Base Excess ABG Hemoglobin Oxyhemoglobin Sodium 135 L Potassium 2.9 L* Chloride 97.2 L Carbon Dioxide 19 L BUN Creatinine 1.7 H Glucose 170 H POC Glucose 152 H Lactic Acid Calcium Ionized Calcium Phosphorus Magnesium Direct Bilirubin AST ALT Alkaline Phosphatase Lactate Dehydrogenase Troponin T C-Reactive Protein Total Protein Albumin Prealbumin Triglycerides 160 H Cholesterol LDL Cholesterol Direct HDL Cholesterol 31 L 25-OH Vitamin D Total PTH Intact Urine pH Urine WBC (Auto) Urine Creatinine Urine Total Protein Fluid Total Protein Vancomycin Trough Rheumatoid Factor Complement C4 Miscellaneous Test Crossmatch 09/04/16 09/04/16 09/04/16 11:34 17:46 23:29 WBC RBC Hgb Hct MCV MCH MCHC RDW Plt Count Lymph % (Auto) [place] % (Auto) Lymph # [place] # Baso # Seg Neutrophils % Seg Neuts % (Manual) Lymphocytes % (Manual) Monocytes % (Manual) Eosinophils % (Manual) Basophils % (Manual) Nucleated RBC % Seg Neutrophils # Seg Neutrophils # Man Lymphocytes # (Manual) Monocytes # (Manual) Eosinophils # (Manual) Basophils # (Manual) PT INR Fibrinogen dRVVT Confirm Interp Factor V Activity POC ABG pH POC ABG pCO2 POC ABG pO2 ABG pO2 ABG HCO3 ABG Base Excess ABG Hemoglobin Oxyhemoglobin Sodium Potassium Chloride Carbon Dioxide BUN Creatinine Glucose POC Glucose 165 H 210 H 139 H Lactic Acid Calcium Ionized Calcium Phosphorus Magnesium Direct Bilirubin AST ALT Alkaline Phosphatase Lactate Dehydrogenase Troponin T C-Reactive Protein Total Protein Albumin Prealbumin Triglycerides Cholesterol LDL Cholesterol Direct HDL Cholesterol 25-OH Vitamin D Total PTH Intact Urine pH Urine WBC (Auto) Urine Creatinine Urine Total Protein Fluid Total Protein Vancomycin Trough Rheumatoid Factor Complement C4 Miscellaneous Test Crossmatch 09/05/16 09/05/16 09/05/16 04:05 04:05 05:38 WBC RBC Hgb Hct MCV 76 L D MCH 23 L MCHC RDW 17.8 H Plt Count Lymph % (Auto) [place] % (Auto) Lymph # [place] # Baso # Seg Neutrophils % Seg Neuts % (Manual) Lymphocytes % (Manual) Monocytes % (Manual) Eosinophils % (Manual) Basophils % (Manual) Nucleated RBC % Seg Neutrophils # Seg Neutrophils # Man Lymphocytes # (Manual) Monocytes # (Manual) Eosinophils # (Manual) Basophils # (Manual) PT INR Fibrinogen dRVVT Confirm Interp Factor V Activity POC ABG pH POC ABG pCO2 POC ABG pO2 ABG pO2 ABG HCO3 ABG Base Excess ABG Hemoglobin Oxyhemoglobin Sodium 134 L Potassium Chloride Carbon Dioxide 18 L BUN Creatinine 1.8 H Glucose 192 H POC Glucose 175 H Lactic Acid Calcium Ionized Calcium Phosphorus Magnesium Direct Bilirubin AST ALT Alkaline Phosphatase Lactate Dehydrogenase Troponin T C-Reactive Protein Total Protein Albumin Prealbumin Triglycerides Cholesterol LDL Cholesterol Direct HDL Cholesterol 25-OH Vitamin D Total PTH Intact Urine pH Urine WBC (Auto) Urine Creatinine Urine Total Protein Fluid Total Protein Vancomycin Trough Rheumatoid Factor Complement C4 Miscellaneous Test Crossmatch 09/05/16 09/05/16 09/05/16 11:38 17:48 23:22 WBC RBC Hgb Hct MCV MCH MCHC RDW Plt Count Lymph % (Auto) [place] % (Auto) Lymph # [place] # Baso # Seg Neutrophils % Seg Neuts % (Manual) Lymphocytes % (Manual) Monocytes % (Manual) Eosinophils % (Manual) Basophils % (Manual) Nucleated RBC % Seg Neutrophils # Seg Neutrophils # Man Lymphocytes # (Manual) Monocytes # (Manual) Eosinophils # (Manual) Basophils # (Manual) PT INR Fibrinogen dRVVT Confirm Interp Factor V Activity POC ABG pH POC ABG pCO2 POC ABG pO2 ABG pO2 ABG HCO3 ABG Base Excess ABG Hemoglobin Oxyhemoglobin Sodium Potassium Chloride Carbon Dioxide BUN Creatinine Glucose POC Glucose 164 H 186 H 195 H Lactic Acid Calcium Ionized Calcium Phosphorus Magnesium Direct Bilirubin AST ALT Alkaline Phosphatase Lactate Dehydrogenase Troponin T C-Reactive Protein Total Protein Albumin Prealbumin Triglycerides Cholesterol LDL Cholesterol Direct HDL Cholesterol 25-OH Vitamin D Total PTH Intact Urine pH Urine WBC (Auto) Urine Creatinine Urine Total Protein Fluid Total Protein Vancomycin Trough Rheumatoid Factor Complement C4 Miscellaneous Test Crossmatch 09/06/16 09/06/16 09/06/16 04:12 05:59 07:32 WBC RBC Hgb Hct MCV MCH MCHC RDW Plt Count Lymph % (Auto) [place] % (Auto) Lymph # [place] # Baso # Seg Neutrophils % Seg Neuts % (Manual) Lymphocytes % (Manual) Monocytes % (Manual) Eosinophils % (Manual) Basophils % (Manual) Nucleated RBC % Seg Neutrophils # Seg Neutrophils # Man Lymphocytes # (Manual) Monocytes # (Manual) Eosinophils # (Manual) Basophils # (Manual) PT INR Fibrinogen dRVVT Confirm Interp Factor V Activity POC ABG pH 7.514 H POC ABG pCO2 29.1 L POC ABG pO2 72 L ABG pO2 ABG HCO3 ABG Base Excess ABG Hemoglobin Oxyhemoglobin Sodium 133 L Potassium 3.4 L Chloride 94.9 L Carbon Dioxide 19 L BUN 30 H Creatinine 2.1 H Glucose 139 H POC Glucose 146 H Lactic Acid Calcium Ionized Calcium Phosphorus Magnesium Direct Bilirubin AST ALT Alkaline Phosphatase Lactate Dehydrogenase Troponin T C-Reactive Protein Total Protein Albumin Prealbumin Triglycerides Cholesterol LDL Cholesterol Direct HDL Cholesterol 25-OH Vitamin D Total PTH Intact Urine pH Urine WBC (Auto) Urine Creatinine Urine Total Protein Fluid Total Protein Vancomycin Trough Rheumatoid Factor Complement C4 Miscellaneous Test Crossmatch 09/06/16 09/06/16 09/06/16 11:57 17:58 19:02 WBC RBC Hgb Hct MCV MCH MCHC RDW Plt Count Lymph % (Auto) [place] % (Auto) Lymph # [place] # Baso # Seg Neutrophils % Seg Neuts % (Manual) Lymphocytes % (Manual) Monocytes % (Manual) Eosinophils % (Manual) Basophils % (Manual) Nucleated RBC % Seg Neutrophils # Seg Neutrophils # Man Lymphocytes # (Manual) Monocytes # (Manual) Eosinophils # (Manual) Basophils # (Manual) PT INR Fibrinogen dRVVT Confirm Interp Factor V Activity POC ABG pH 7.465 H POC ABG pCO2 32.0 L POC ABG pO2 ABG pO2 ABG HCO3 ABG Base Excess ABG Hemoglobin Oxyhemoglobin Sodium Potassium Chloride Carbon Dioxide BUN Creatinine Glucose POC Glucose 165 H 160 H Lactic Acid Calcium Ionized Calcium Phosphorus Magnesium Direct Bilirubin AST ALT Alkaline Phosphatase Lactate Dehydrogenase Troponin T C-Reactive Protein Total Protein Albumin Prealbumin Triglycerides Cholesterol LDL Cholesterol Direct HDL Cholesterol 25-OH Vitamin D Total PTH Intact Urine pH Urine WBC (Auto) Urine Creatinine Urine Total Protein Fluid Total Protein Vancomycin Trough Rheumatoid Factor Complement C4 Miscellaneous Test Crossmatch 09/06/16 09/07/16 09/07/16 23:45 02:47 02:47 WBC RBC Hgb Hct MCV MCH MCHC RDW Plt Count Lymph % (Auto) [place] % (Auto) Lymph # [place] # Baso # Seg Neutrophils % Seg Neuts % (Manual) Lymphocytes % (Manual) Monocytes % (Manual) Eosinophils % (Manual) Basophils % (Manual) Nucleated RBC % Seg Neutrophils # Seg Neutrophils # Man Lymphocytes # (Manual) Monocytes # (Manual) Eosinophils # (Manual) Basophils # (Manual) PT INR Fibrinogen dRVVT Confirm Interp Factor V Activity POC ABG pH POC ABG pCO2 POC ABG pO2 ABG pO2 ABG HCO3 ABG Base Excess ABG Hemoglobin Oxyhemoglobin Sodium Potassium Chloride Carbon Dioxide BUN Creatinine Glucose POC Glucose 204 H Lactic Acid Calcium Ionized Calcium Phosphorus Magnesium Direct Bilirubin AST ALT Alkaline Phosphatase Lactate Dehydrogenase Troponin T C-Reactive Protein Total Protein Albumin Prealbumin Triglycerides Cholesterol LDL Cholesterol Direct HDL Cholesterol 25-OH Vitamin D Total PTH Intact Urine pH Urine WBC (Auto) 68.0 H Urine Creatinine 106.1 H Urine Total Protein Fluid Total Protein Vancomycin Trough Rheumatoid Factor Complement C4 Miscellaneous Test Crossmatch 09/07/16 09/07/16 09/07/16 04:50 06:19 06:39 WBC RBC Hgb Hct MCV MCH MCHC RDW Plt Count Lymph % (Auto) [place] % (Auto) Lymph # [place] # Baso # Seg Neutrophils % Seg Neuts % (Manual) Lymphocytes % (Manual) Monocytes % (Manual) Eosinophils % (Manual) Basophils % (Manual) Nucleated RBC % Seg Neutrophils # Seg Neutrophils # Man Lymphocytes # (Manual) Monocytes # (Manual) Eosinophils # (Manual) Basophils # (Manual) PT INR Fibrinogen dRVVT Confirm Interp Factor V Activity POC ABG pH 7.457 H POC ABG pCO2 32.1 L POC ABG pO2 76 L ABG pO2 ABG HCO3 ABG Base Excess ABG Hemoglobin Oxyhemoglobin Sodium 132 L Potassium Chloride 94.7 L Carbon Dioxide BUN 53 H Creatinine 2.9 H Glucose 151 H POC Glucose 149 H Lactic Acid Calcium Ionized Calcium Phosphorus Magnesium Direct Bilirubin AST ALT Alkaline Phosphatase Lactate Dehydrogenase Troponin T C-Reactive Protein Total Protein Albumin Prealbumin Triglycerides Cholesterol LDL Cholesterol Direct HDL Cholesterol 25-OH Vitamin D Total PTH Intact Urine pH Urine WBC (Auto) Urine Creatinine Urine Total Protein Fluid Total Protein Vancomycin Trough Rheumatoid Factor Complement C4 Miscellaneous Test Crossmatch 09/07/16 09/07/16 09/07/16 09:20 11:43 11:43 WBC 19.4 H RBC Hgb 8.3 L Hct 26.4 L D MCV 72 L D MCH 22 L MCHC RDW 17.9 H Plt Count Lymph % (Auto) 8.5 L [place] % (Auto) Lymph # [place] # 1.0 H Baso # Seg Neutrophils % 85.8 H Seg Neuts % (Manual) Lymphocytes % (Manual) Monocytes % (Manual) Eosinophils % (Manual) Basophils % (Manual) Nucleated RBC % Seg Neutrophils # 16.6 H Seg Neutrophils # Man Lymphocytes # (Manual) Monocytes # (Manual) Eosinophils # (Manual) Basophils # (Manual) PT INR Fibrinogen dRVVT Confirm Interp Factor V Activity POC ABG pH POC ABG pCO2 POC ABG pO2 ABG pO2 ABG HCO3 ABG Base Excess ABG Hemoglobin Oxyhemoglobin Sodium 134 L Potassium Chloride 97.2 L Carbon Dioxide 20 L BUN 58 H Creatinine 2.9 H Glucose 147 H POC Glucose Lactic Acid Calcium Ionized Calcium Phosphorus 2.40 L Magnesium 2.40 H Direct Bilirubin AST ALT Alkaline Phosphatase Lactate Dehydrogenase Troponin T C-Reactive Protein Total Protein 5.8 L Albumin 2.2 L Prealbumin Triglycerides Cholesterol LDL Cholesterol Direct HDL Cholesterol 25-OH Vitamin D Total PTH Intact Urine pH Urine WBC (Auto) Urine Creatinine Urine Total Protein Fluid Total Protein Vancomycin Trough Rheumatoid Factor Complement C4 58 H Miscellaneous Test Crossmatch 09/07/16 09/07/16 09/07/16 11:50 16:00 17:31 WBC RBC Hgb Hct MCV MCH MCHC RDW Plt Count Lymph % (Auto) [place] % (Auto) Lymph # [place] # Baso # Seg Neutrophils % Seg Neuts % (Manual) Lymphocytes % (Manual) Monocytes % (Manual) Eosinophils % (Manual) Basophils % (Manual) Nucleated RBC % Seg Neutrophils # Seg Neutrophils # Man Lymphocytes # (Manual) Monocytes # (Manual) Eosinophils # (Manual) Basophils # (Manual) PT INR Fibrinogen dRVVT Confirm Interp Factor V Activity POC ABG pH POC ABG pCO2 POC ABG pO2 158 H ABG pO2 ABG HCO3 ABG Base Excess ABG Hemoglobin Oxyhemoglobin Sodium Potassium Chloride Carbon Dioxide BUN Creatinine Glucose POC Glucose 175 H Lactic Acid Calcium Ionized Calcium Phosphorus Magnesium Direct Bilirubin AST ALT Alkaline Phosphatase Lactate Dehydrogenase Troponin T C-Reactive Protein Total Protein Albumin Prealbumin Triglycerides Cholesterol LDL Cholesterol Direct HDL Cholesterol 25-OH Vitamin D Total PTH Intact Urine pH Urine WBC (Auto) Urine Creatinine 66.3 H Urine Total Protein Fluid Total Protein Vancomycin Trough Rheumatoid Factor Complement C4 Miscellaneous Test Crossmatch 09/07/16 09/08/16 09/08/16 23:50 05:46 06:18 WBC 17.8 H RBC 3.58 L Hgb 8.1 L Hct 25.5 L MCV 71 L MCH 23 L MCHC RDW 18.4 H Plt Count Lymph % (Auto) [place] % (Auto) Lymph # [place] # Baso # Seg Neutrophils % Seg Neuts % (Manual) 92.0 H Lymphocytes % (Manual) 6.0 L Monocytes % (Manual) Eosinophils % (Manual) Basophils % (Manual) Nucleated RBC % Seg Neutrophils # Seg Neutrophils # Man 16.4 H Lymphocytes # (Manual) 1.1 L Monocytes # (Manual) Eosinophils # (Manual) Basophils # (Manual) PT INR Fibrinogen dRVVT Confirm Interp Factor V Activity POC ABG pH POC ABG pCO2 34.3 L POC ABG pO2 71 L ABG pO2 ABG HCO3 ABG Base Excess ABG Hemoglobin Oxyhemoglobin Sodium Potassium Chloride Carbon Dioxide BUN Creatinine Glucose POC Glucose 216 H Lactic Acid Calcium Ionized Calcium Phosphorus Magnesium Direct Bilirubin AST ALT Alkaline Phosphatase Lactate Dehydrogenase Troponin T C-Reactive Protein Total Protein Albumin Prealbumin Triglycerides Cholesterol LDL Cholesterol Direct HDL Cholesterol 25-OH Vitamin D Total PTH Intact Urine pH Urine WBC (Auto) Urine Creatinine Urine Total Protein Fluid Total Protein Vancomycin Trough Rheumatoid Factor Complement C4 Miscellaneous Test Crossmatch 09/08/16 09/08/16 09/08/16 06:18 06:51 10:55 WBC RBC Hgb Hct MCV MCH MCHC RDW Plt Count Lymph % (Auto) [place] % (Auto) Lymph # [place] # Baso # Seg Neutrophils % Seg Neuts % (Manual) Lymphocytes % (Manual) Monocytes % (Manual) Eosinophils % (Manual) Basophils % (Manual) Nucleated RBC % Seg Neutrophils # Seg Neutrophils # Man Lymphocytes # (Manual) Monocytes # (Manual) Eosinophils # (Manual) Basophils # (Manual) PT INR Fibrinogen dRVVT Confirm Interp Factor V Activity POC ABG pH POC ABG pCO2 POC ABG pO2 ABG pO2 ABG HCO3 ABG Base Excess ABG Hemoglobin Oxyhemoglobin Sodium 133 L Potassium Chloride 96.9 L Carbon Dioxide 20 L BUN 63 H Creatinine 2.7 H Glucose 195 H POC Glucose 204 H 169 H Lactic Acid Calcium Ionized Calcium Phosphorus Magnesium Direct Bilirubin AST ALT Alkaline Phosphatase Lactate Dehydrogenase Troponin T C-Reactive Protein Total Protein Albumin Prealbumin Triglycerides Cholesterol LDL Cholesterol Direct HDL Cholesterol 25-OH Vitamin D Total PTH Intact Urine pH Urine WBC (Auto) Urine Creatinine Urine Total Protein Fluid Total Protein Vancomycin Trough Rheumatoid Factor Complement C4 Miscellaneous Test Crossmatch 09/08/16 09/08/16 09/08/16 11:48 11:48 11:48 WBC RBC Hgb Hct MCV MCH MCHC RDW Plt Count Lymph % (Auto) [place] % (Auto) Lymph # [place] # Baso # Seg Neutrophils % Seg Neuts % (Manual) Lymphocytes % (Manual) Monocytes % (Manual) Eosinophils % (Manual) Basophils % (Manual) Nucleated RBC % Seg Neutrophils # Seg Neutrophils # Man Lymphocytes # (Manual) Monocytes # (Manual) Eosinophils # (Manual) Basophils # (Manual) PT INR Fibrinogen 750 H dRVVT Confirm Interp Factor V Activity POC ABG pH POC ABG pCO2 POC ABG pO2 ABG pO2 ABG HCO3 ABG Base Excess ABG Hemoglobin Oxyhemoglobin Sodium Potassium Chloride Carbon Dioxide BUN Creatinine Glucose POC Glucose Lactic Acid Calcium Ionized Calcium Phosphorus Magnesium Direct Bilirubin AST ALT Alkaline Phosphatase Lactate Dehydrogenase Troponin T C-Reactive Protein 15.70 H Total Protein Albumin Prealbumin Triglycerides Cholesterol LDL Cholesterol Direct HDL Cholesterol 25-OH Vitamin D Total PTH Intact Urine pH Urine WBC (Auto) Urine Creatinine Urine Total Protein Fluid Total Protein Vancomycin Trough Rheumatoid Factor 24 H Complement C4 Miscellaneous Test Crossmatch 09/08/16 09/08/16 09/09/16 15:35 18:25 00:24 WBC RBC Hgb Hct MCV MCH MCHC RDW Plt Count Lymph % (Auto) [place] % (Auto) Lymph # [place] # Baso # Seg Neutrophils % Seg Neuts % (Manual) Lymphocytes % (Manual) Monocytes % (Manual) Eosinophils % (Manual) Basophils % (Manual) Nucleated RBC % Seg Neutrophils # Seg Neutrophils # Man Lymphocytes # (Manual) Monocytes # (Manual) Eosinophils # (Manual) Basophils # (Manual) PT INR Fibrinogen dRVVT Confirm Interp Factor V Activity 182 H POC ABG pH POC ABG pCO2 POC ABG pO2 ABG pO2 ABG HCO3 ABG Base Excess ABG Hemoglobin Oxyhemoglobin Sodium Potassium Chloride Carbon Dioxide BUN Creatinine Glucose POC Glucose 184 H 216 H Lactic Acid Calcium Ionized Calcium Phosphorus Magnesium Direct Bilirubin AST ALT Alkaline Phosphatase Lactate Dehydrogenase Troponin T C-Reactive Protein Total Protein Albumin Prealbumin Triglycerides Cholesterol LDL Cholesterol Direct HDL Cholesterol 25-OH Vitamin D Total PTH Intact Urine pH Urine WBC (Auto) Urine Creatinine Urine Total Protein Fluid Total Protein Vancomycin Trough Rheumatoid Factor Complement C4 Miscellaneous Test Crossmatch 09/09/16 09/09/16 09/09/16 03:00 03:00 04:04 WBC 27.9 H RBC Hgb 8.7 L Hct 28.1 L MCV 72 L MCH 22 L MCHC RDW 18.4 H Plt Count 485 H Lymph % (Auto) [place] % (Auto) Lymph # [place] # Baso # Seg Neutrophils % Seg Neuts % (Manual) 77.0 H Lymphocytes % (Manual) 9.0 L Monocytes % (Manual) Eosinophils % (Manual) Basophils % (Manual) Nucleated RBC % Seg Neutrophils # Seg Neutrophils # Man 21.5 H Lymphocytes # (Manual) Monocytes # (Manual) 2.0 H Eosinophils # (Manual) Basophils # (Manual) PT INR Fibrinogen dRVVT Confirm Interp Factor V Activity POC ABG pH POC ABG pCO2 POC ABG pO2 121 H ABG pO2 ABG HCO3 ABG Base Excess ABG Hemoglobin Oxyhemoglobin Sodium 135 L Potassium Chloride 96.3 L Carbon Dioxide 21 L BUN 83 H Creatinine 3.0 H Glucose 135 H POC Glucose Lactic Acid Calcium Ionized Calcium Phosphorus Magnesium Direct Bilirubin AST ALT Alkaline Phosphatase Lactate Dehydrogenase Troponin T C-Reactive Protein Total Protein Albumin Prealbumin Triglycerides Cholesterol LDL Cholesterol Direct HDL Cholesterol 25-OH Vitamin D Total PTH Intact Urine pH Urine WBC (Auto) Urine Creatinine Urine Total Protein Fluid Total Protein Vancomycin Trough Rheumatoid Factor Complement C4 Miscellaneous Test Crossmatch 09/09/16 09/09/16 09/09/16 05:41 11:55 14:13 WBC RBC Hgb Hct MCV MCH MCHC RDW Plt Count Lymph % (Auto) [place] % (Auto) Lymph # [place] # Baso # Seg Neutrophils % Seg Neuts % (Manual) Lymphocytes % (Manual) Monocytes % (Manual) Eosinophils % (Manual) Basophils % (Manual) Nucleated RBC % Seg Neutrophils # Seg Neutrophils # Man Lymphocytes # (Manual) Monocytes # (Manual) Eosinophils # (Manual) Basophils # (Manual) PT INR Fibrinogen dRVVT Confirm Interp Factor V Activity POC ABG pH POC ABG pCO2 POC ABG pO2 ABG pO2 ABG HCO3 ABG Base Excess ABG Hemoglobin Oxyhemoglobin Sodium Potassium Chloride Carbon Dioxide BUN Creatinine Glucose POC Glucose 155 H 186 H Lactic Acid Calcium Ionized Calcium Phosphorus Magnesium Direct Bilirubin AST ALT Alkaline Phosphatase Lactate Dehydrogenase Troponin T C-Reactive Protein Total Protein Albumin Prealbumin Triglycerides Cholesterol LDL Cholesterol Direct HDL Cholesterol 25-OH Vitamin D Total PTH Intact Urine pH Urine WBC (Auto) 25.0 H Urine Creatinine Urine Total Protein Fluid Total Protein Vancomycin Trough Rheumatoid Factor Complement C4 Miscellaneous Test Crossmatch 09/09/16 09/09/16 09/10/16 17:33 23:13 05:09 WBC RBC Hgb Hct MCV MCH MCHC RDW Plt Count Lymph % (Auto) [place] % (Auto) Lymph # [place] # Baso # Seg Neutrophils % Seg Neuts % (Manual) Lymphocytes % (Manual) Monocytes % (Manual) Eosinophils % (Manual) Basophils % (Manual) Nucleated RBC % Seg Neutrophils # Seg Neutrophils # Man Lymphocytes # (Manual) Monocytes # (Manual) Eosinophils # (Manual) Basophils # (Manual) PT INR Fibrinogen dRVVT Confirm Interp Factor V Activity POC ABG pH POC ABG pCO2 POC ABG pO2 74 L ABG pO2 ABG HCO3 ABG Base Excess ABG Hemoglobin Oxyhemoglobin Sodium Potassium Chloride Carbon Dioxide BUN Creatinine Glucose POC Glucose 211 H 215 H Lactic Acid Calcium Ionized Calcium Phosphorus Magnesium Direct Bilirubin AST ALT Alkaline Phosphatase Lactate Dehydrogenase Troponin T C-Reactive Protein Total Protein Albumin Prealbumin Triglycerides Cholesterol LDL Cholesterol Direct HDL Cholesterol 25-OH Vitamin D Total PTH Intact Urine pH Urine WBC (Auto) Urine Creatinine Urine Total Protein Fluid Total Protein Vancomycin Trough Rheumatoid Factor Complement C4 Miscellaneous Test Crossmatch 09/10/16 09/10/16 09/10/16 05:17 05:17 11:31 WBC 15.8 H RBC 3.25 L Hgb 7.3 L Hct 22.9 L MCV 71 L MCH 23 L MCHC RDW 18.4 H Plt Count Lymph % (Auto) [place] % (Auto) Lymph # [place] # Baso # Seg Neutrophils % Seg Neuts % (Manual) 91.0 H Lymphocytes % (Manual) 4.0 L Monocytes % (Manual) Eosinophils % (Manual) Basophils % (Manual) Nucleated RBC % Seg Neutrophils # Seg Neutrophils # Man 14.4 H Lymphocytes # (Manual) 0.6 L Monocytes # (Manual) Eosinophils # (Manual) Basophils # (Manual) PT INR Fibrinogen dRVVT Confirm Interp Factor V Activity POC ABG pH POC ABG pCO2 POC ABG pO2 ABG pO2 ABG HCO3 ABG Base Excess ABG Hemoglobin Oxyhemoglobin Sodium Potassium Chloride Carbon Dioxide 21 L BUN 93 H Creatinine 2.9 H Glucose 146 H POC Glucose 188 H Lactic Acid Calcium 8.1 L Ionized Calcium Phosphorus Magnesium Direct Bilirubin AST ALT Alkaline Phosphatase Lactate Dehydrogenase Troponin T C-Reactive Protein Total Protein Albumin Prealbumin Triglycerides Cholesterol LDL Cholesterol Direct HDL Cholesterol 25-OH Vitamin D Total PTH Intact Urine pH Urine WBC (Auto) Urine Creatinine Urine Total Protein Fluid Total Protein Vancomycin Trough Rheumatoid Factor Complement C4 Miscellaneous Test Crossmatch 09/10/16 09/10/16 09/10/16 13:17 17:20 23:32 WBC RBC Hgb Hct MCV MCH MCHC RDW Plt Count Lymph % (Auto) [place] % (Auto) Lymph # [place] # Baso # Seg Neutrophils % Seg Neuts % (Manual) Lymphocytes % (Manual) Monocytes % (Manual) Eosinophils % (Manual) Basophils % (Manual) Nucleated RBC % Seg Neutrophils # Seg Neutrophils # Man Lymphocytes # (Manual) Monocytes # (Manual) Eosinophils # (Manual) Basophils # (Manual) PT INR Fibrinogen dRVVT Confirm Interp Factor V Activity POC ABG pH POC ABG pCO2 POC ABG pO2 ABG pO2 ABG HCO3 ABG Base Excess ABG Hemoglobin Oxyhemoglobin Sodium Potassium Chloride Carbon Dioxide BUN Creatinine Glucose POC Glucose 199 H 186 H Lactic Acid Calcium Ionized Calcium Phosphorus Magnesium Direct Bilirubin AST ALT Alkaline Phosphatase Lactate Dehydrogenase Troponin T C-Reactive Protein Total Protein Albumin Prealbumin Triglycerides Cholesterol LDL Cholesterol Direct HDL Cholesterol 25-OH Vitamin D Total PTH Intact Urine pH Urine WBC (Auto) Urine Creatinine Urine Total Protein Fluid Total Protein Vancomycin Trough Rheumatoid Factor Complement C4 Miscellaneous Test Crossmatch See Detail 09/11/16 09/11/16 09/11/16 05:10 05:10 05:17 WBC 28.4 H RBC Hgb 9.2 L Hct 29.3 L D MCV 73 L MCH 23 L MCHC RDW 18.9 H Plt Count 452 H Lymph % (Auto) [place] % (Auto) Lymph # [place] # Baso # Seg Neutrophils % Seg Neuts % (Manual) 89.5 H Lymphocytes % (Manual) 2.0 L Monocytes % (Manual) Eosinophils % (Manual) Basophils % (Manual) Nucleated RBC % Seg Neutrophils # Seg Neutrophils # Man 25.4 H Lymphocytes # (Manual) 0.6 L Monocytes # (Manual) 1.3 H Eosinophils # (Manual) Basophils # (Manual) PT INR Fibrinogen dRVVT Confirm Interp Factor V Activity POC ABG pH POC ABG pCO2 POC ABG pO2 ABG pO2 ABG HCO3 ABG Base Excess ABG Hemoglobin Oxyhemoglobin Sodium 136 L Potassium Chloride Carbon Dioxide 18 L BUN 107 H Creatinine 2.6 H Glucose 187 H POC Glucose 230 H Lactic Acid Calcium 8.3 L Ionized Calcium Phosphorus Magnesium Direct Bilirubin AST ALT Alkaline Phosphatase Lactate Dehydrogenase Troponin T C-Reactive Protein Total Protein Albumin Prealbumin Triglycerides Cholesterol LDL Cholesterol Direct HDL Cholesterol 25-OH Vitamin D Total PTH Intact Urine pH Urine WBC (Auto) Urine Creatinine Urine Total Protein Fluid Total Protein Vancomycin Trough Rheumatoid Factor Complement C4 Miscellaneous Test Crossmatch 09/11/16 09/11/16 09/11/16 05:55 12:02 17:32 WBC RBC Hgb Hct MCV MCH MCHC RDW Plt Count Lymph % (Auto) [place] % (Auto) Lymph # [place] # Baso # Seg Neutrophils % Seg Neuts % (Manual) Lymphocytes % (Manual) Monocytes % (Manual) Eosinophils % (Manual) Basophils % (Manual) Nucleated RBC % Seg Neutrophils # Seg Neutrophils # Man Lymphocytes # (Manual) Monocytes # (Manual) Eosinophils # (Manual) Basophils # (Manual) PT INR Fibrinogen dRVVT Confirm Interp Factor V Activity POC ABG pH POC ABG pCO2 33.8 L POC ABG pO2 ABG pO2 ABG HCO3 ABG Base Excess ABG Hemoglobin Oxyhemoglobin Sodium Potassium Chloride Carbon Dioxide BUN Creatinine Glucose POC Glucose 191 H 239 H Lactic Acid Calcium Ionized Calcium Phosphorus Magnesium Direct Bilirubin AST ALT Alkaline Phosphatase Lactate Dehydrogenase Troponin T C-Reactive Protein Total Protein Albumin Prealbumin Triglycerides Cholesterol LDL Cholesterol Direct HDL Cholesterol 25-OH Vitamin D Total PTH Intact Urine pH Urine WBC (Auto) Urine Creatinine Urine Total Protein Fluid Total Protein Vancomycin Trough Rheumatoid Factor Complement C4 Miscellaneous Test Crossmatch 09/11/16 09/12/16 09/12/16 23:52 05:09 05:32 WBC RBC Hgb Hct MCV MCH MCHC RDW Plt Count Lymph % (Auto) [place] % (Auto) Lymph # [place] # Baso # Seg Neutrophils % Seg Neuts % (Manual) Lymphocytes % (Manual) Monocytes % (Manual) Eosinophils % (Manual) Basophils % (Manual) Nucleated RBC % Seg Neutrophils # Seg Neutrophils # Man Lymphocytes # (Manual) Monocytes # (Manual) Eosinophils # (Manual) Basophils # (Manual) PT INR Fibrinogen dRVVT Confirm Interp Factor V Activity POC ABG pH POC ABG pCO2 34.6 L POC ABG pO2 ABG pO2 ABG HCO3 ABG Base Excess ABG Hemoglobin Oxyhemoglobin Sodium Potassium Chloride Carbon Dioxide BUN Creatinine Glucose POC Glucose 265 H 184 H Lactic Acid Calcium Ionized Calcium Phosphorus Magnesium Direct Bilirubin AST ALT Alkaline Phosphatase Lactate Dehydrogenase Troponin T C-Reactive Protein Total Protein Albumin Prealbumin Triglycerides Cholesterol LDL Cholesterol Direct HDL Cholesterol 25-OH Vitamin D Total PTH Intact Urine pH Urine WBC (Auto) Urine Creatinine Urine Total Protein Fluid Total Protein Vancomycin Trough Rheumatoid Factor Complement C4 Miscellaneous Test Crossmatch 09/12/16 09/12/16 09/12/16 06:45 06:45 07:22 WBC 31.7 H RBC 3.54 L Hgb 8.3 L Hct 25.9 L MCV 73 L MCH 23 L MCHC RDW 18.9 H Plt Count Lymph % (Auto) [place] % (Auto) Lymph # [place] # Baso # Seg Neutrophils % Seg Neuts % (Manual) 88.5 H Lymphocytes % (Manual) 4.5 L Monocytes % (Manual) Eosinophils % (Manual) Basophils % (Manual) Nucleated RBC % Seg Neutrophils # Seg Neutrophils # Man 28.1 H Lymphocytes # (Manual) Monocytes # (Manual) 1.0 H Eosinophils # (Manual) Basophils # (Manual) PT INR Fibrinogen dRVVT Confirm Interp Factor V Activity POC ABG pH POC ABG pCO2 POC ABG pO2 ABG pO2 ABG HCO3 ABG Base Excess ABG Hemoglobin Oxyhemoglobin Sodium Potassium Chloride Carbon Dioxide 20 L BUN 115 H Creatinine 2.7 H Glucose 165 H POC Glucose Lactic Acid Calcium 8.0 L Ionized Calcium Phosphorus Magnesium Direct Bilirubin AST ALT Alkaline Phosphatase Lactate Dehydrogenase Troponin T C-Reactive Protein Total Protein Albumin Prealbumin Triglycerides 217 H Cholesterol LDL Cholesterol Direct HDL Cholesterol 25-OH Vitamin D Total PTH Intact Urine pH Urine WBC (Auto) Urine Creatinine Urine Total Protein Fluid Total Protein Vancomycin Trough Rheumatoid Factor Complement C4 Miscellaneous Test Crossmatch 07/09/12/16 09/12/16 07:22 09:59 12:21 WBC RBC Hgb Hct MCV MCH MCHC RDW Plt Count Lymph % (Auto) [place] % (Auto) Lymph # [place] # Baso # Seg Neutrophils % Seg Neuts % (Manual) Lymphocytes % (Manual) Monocytes % (Manual) Eosinophils % (Manual) Basophils % (Manual) Nucleated RBC % Seg Neutrophils # Seg Neutrophils # Man Lymphocytes # (Manual) Monocytes # (Manual) Eosinophils # (Manual) Basophils # (Manual) PT INR Fibrinogen dRVVT Confirm Interp Positive H Factor V Activity POC ABG pH POC ABG pCO2 POC ABG pO2 ABG pO2 ABG HCO3 ABG Base Excess ABG Hemoglobin Oxyhemoglobin Sodium Potassium Chloride Carbon Dioxide BUN Creatinine Glucose POC Glucose 224 H Lactic Acid Calcium Ionized Calcium Phosphorus Magnesium Direct Bilirubin AST ALT Alkaline Phosphatase Lactate Dehydrogenase Troponin T C-Reactive Protein 1.70 H Total Protein Albumin Prealbumin Triglycerides Cholesterol LDL Cholesterol Direct HDL Cholesterol 25-OH Vitamin D Total PTH Intact Urine pH Urine WBC (Auto) Urine Creatinine Urine Total Protein Fluid Total Protein Vancomycin Trough Rheumatoid Factor Complement C4 Miscellaneous Test Crossmatch 09/12/16 09/12/16 09/13/16 16:51 23:28 04:00 WBC 45.0 H* RBC Hgb 9.4 L Hct MCV 75 L MCH 23 L MCHC RDW 19.0 H Plt Count 470 H Lymph % (Auto) [place] % (Auto) Lymph # [place] # Baso # Seg Neutrophils % Seg Neuts % (Manual) 89.0 H Lymphocytes % (Manual) 5.0 L Monocytes % (Manual) Eosinophils % (Manual) Basophils % (Manual) Nucleated RBC % Seg Neutrophils # Seg Neutrophils # Man 40.1 H Lymphocytes # (Manual) Monocytes # (Manual) Eosinophils # (Manual) Basophils # (Manual) PT INR Fibrinogen dRVVT Confirm Interp Factor V Activity POC ABG pH POC ABG pCO2 POC ABG pO2 ABG pO2 ABG HCO3 ABG Base Excess ABG Hemoglobin Oxyhemoglobin Sodium Potassium Chloride Carbon Dioxide BUN Creatinine Glucose POC Glucose 169 H 150 H Lactic Acid Calcium Ionized Calcium Phosphorus Magnesium Direct Bilirubin AST ALT Alkaline Phosphatase Lactate Dehydrogenase Troponin T C-Reactive Protein Total Protein Albumin Prealbumin Triglycerides Cholesterol LDL Cholesterol Direct HDL Cholesterol 25-OH Vitamin D Total PTH Intact Urine pH Urine WBC (Auto) Urine Creatinine Urine Total Protein Fluid Total Protein Vancomycin Trough Rheumatoid Factor Complement C4 Miscellaneous Test Crossmatch 09/13/16 09/13/16 09/13/16 04:00 11:26 17:31 WBC RBC Hgb Hct MCV MCH MCHC RDW Plt Count Lymph % (Auto) [place] % (Auto) Lymph # [place] # Baso # Seg Neutrophils % Seg Neuts % (Manual) Lymphocytes % (Manual) Monocytes % (Manual) Eosinophils % (Manual) Basophils % (Manual) Nucleated RBC % Seg Neutrophils # Seg Neutrophils # Man Lymphocytes # (Manual) Monocytes # (Manual) Eosinophils # (Manual) Basophils # (Manual) PT INR Fibrinogen dRVVT Confirm Interp Factor V Activity POC ABG pH POC ABG pCO2 POC ABG pO2 ABG pO2 ABG HCO3 ABG Base Excess ABG Hemoglobin Oxyhemoglobin Sodium Potassium Chloride Carbon Dioxide 20 L BUN 116 H Creatinine 3.0 H Glucose 172 H POC Glucose 140 H 183 H Lactic Acid Calcium Ionized Calcium Phosphorus Magnesium Direct Bilirubin AST ALT Alkaline Phosphatase Lactate Dehydrogenase Troponin T C-Reactive Protein Total Protein 6.2 L Albumin 2.9 L Prealbumin Triglycerides Cholesterol LDL Cholesterol Direct HDL Cholesterol 25-OH Vitamin D Total PTH Intact Urine pH Urine WBC (Auto) Urine Creatinine Urine Total Protein Fluid Total Protein Vancomycin Trough Rheumatoid Factor Complement C4 Miscellaneous Test Crossmatch 09/13/16 09/14/16 09/14/16 23:23 04:06 04:07 WBC 29.4 H RBC Hgb 8.9 L Hct 27.3 L MCV 75 L MCH 24 L MCHC RDW 19.1 H Plt Count Lymph % (Auto) [place] % (Auto) Lymph # [place] # Baso # Seg Neutrophils % Seg Neuts % (Manual) 84.0 H Lymphocytes % (Manual) 6.0 L Monocytes % (Manual) 9.0 H Eosinophils % (Manual) Basophils % (Manual) Nucleated RBC % Seg Neutrophils # Seg Neutrophils # Man 24.7 H Lymphocytes # (Manual) Monocytes # (Manual) 2.6 H Eosinophils # (Manual) Basophils # (Manual) PT INR Fibrinogen dRVVT Confirm Interp Factor V Activity POC ABG pH 7.342 L POC ABG pCO2 POC ABG pO2 116 H ABG pO2 ABG HCO3 ABG Base Excess ABG Hemoglobin Oxyhemoglobin Sodium Potassium Chloride Carbon Dioxide BUN Creatinine Glucose POC Glucose 154 H Lactic Acid Calcium Ionized Calcium Phosphorus Magnesium Direct Bilirubin AST ALT Alkaline Phosphatase Lactate Dehydrogenase Troponin T C-Reactive Protein Total Protein Albumin Prealbumin Triglycerides Cholesterol LDL Cholesterol Direct HDL Cholesterol 25-OH Vitamin D Total PTH Intact Urine pH Urine WBC (Auto) Urine Creatinine Urine Total Protein Fluid Total Protein Vancomycin Trough Rheumatoid Factor Complement C4 Miscellaneous Test Crossmatch 09/14/16 09/14/16 09/14/16 04:07 05:29 12:19 WBC RBC Hgb Hct MCV MCH MCHC RDW Plt Count Lymph % (Auto) [place] % (Auto) Lymph # [place] # Baso # Seg Neutrophils % Seg Neuts % (Manual) Lymphocytes % (Manual) Monocytes % (Manual) Eosinophils % (Manual) Basophils % (Manual) Nucleated RBC % Seg Neutrophils # Seg Neutrophils # Man Lymphocytes # (Manual) Monocytes # (Manual) Eosinophils # (Manual) Basophils # (Manual) PT INR Fibrinogen dRVVT Confirm Interp Factor V Activity POC ABG pH POC ABG pCO2 POC ABG pO2 ABG pO2 ABG HCO3 ABG Base Excess ABG Hemoglobin Oxyhemoglobin Sodium 136 L Potassium Chloride Carbon Dioxide 18 L BUN 121 H Creatinine 2.8 H Glucose 214 H POC Glucose 239 H 181 H Lactic Acid Calcium Ionized Calcium Phosphorus Magnesium Direct Bilirubin AST ALT Alkaline Phosphatase Lactate Dehydrogenase Troponin T C-Reactive Protein Total Protein Albumin Prealbumin Triglycerides Cholesterol LDL Cholesterol Direct HDL Cholesterol 25-OH Vitamin D Total PTH Intact Urine pH Urine WBC (Auto) Urine Creatinine Urine Total Protein Fluid Total Protein Vancomycin Trough Rheumatoid Factor Complement C4 Miscellaneous Test Crossmatch 09/14/16 09/14/16 09/15/16 18:12 23:37 05:00 WBC 26.1 H RBC 3.05 L Hgb 7.2 L Hct 22.9 L MCV 75 L MCH 24 L MCHC RDW 19.0 H Plt Count Lymph % (Auto) [place] % (Auto) Lymph # [place] # Baso # Seg Neutrophils % Seg Neuts % (Manual) Lymphocytes % (Manual) Monocytes % (Manual) Eosinophils % (Manual) Basophils % (Manual) Nucleated RBC % Seg Neutrophils # Seg Neutrophils # Man Lymphocytes # (Manual) Monocytes # (Manual) Eosinophils # (Manual) Basophils # (Manual) PT INR Fibrinogen dRVVT Confirm Interp Factor V Activity POC ABG pH POC ABG pCO2 POC ABG pO2 ABG pO2 ABG HCO3 ABG Base Excess ABG Hemoglobin Oxyhemoglobin Sodium Potassium Chloride Carbon Dioxide BUN Creatinine Glucose POC Glucose 266 H 154 H Lactic Acid Calcium Ionized Calcium Phosphorus Magnesium Direct Bilirubin AST ALT Alkaline Phosphatase Lactate Dehydrogenase Troponin T C-Reactive Protein Total Protein Albumin Prealbumin Triglycerides Cholesterol LDL Cholesterol Direct HDL Cholesterol 25-OH Vitamin D Total PTH Intact Urine pH Urine WBC (Auto) Urine Creatinine Urine Total Protein Fluid Total Protein Vancomycin Trough Rheumatoid Factor Complement C4 Miscellaneous Test Crossmatch 09/15/16 09/15/16 09/15/16 05:00 05:17 12:45 WBC RBC Hgb Hct MCV MCH MCHC RDW Plt Count Lymph % (Auto) [place] % (Auto) Lymph # [place] # Baso # Seg Neutrophils % Seg Neuts % (Manual) Lymphocytes % (Manual) Monocytes % (Manual) Eosinophils % (Manual) Basophils % (Manual) Nucleated RBC % Seg Neutrophils # Seg Neutrophils # Man Lymphocytes # (Manual) Monocytes # (Manual) Eosinophils # (Manual) Basophils # (Manual) PT INR Fibrinogen dRVVT Confirm Interp Factor V Activity POC ABG pH POC ABG pCO2 POC ABG pO2 ABG pO2 ABG HCO3 ABG Base Excess ABG Hemoglobin Oxyhemoglobin Sodium Potassium 5.2 H Chloride Carbon Dioxide 18 L BUN 139 H Creatinine 3.7 H Glucose 227 H POC Glucose 226 H 244 H Lactic Acid Calcium 8.3 L Ionized Calcium Phosphorus Magnesium Direct Bilirubin AST ALT Alkaline Phosphatase Lactate Dehydrogenase Troponin T C-Reactive Protein Total Protein Albumin Prealbumin Triglycerides Cholesterol LDL Cholesterol Direct HDL Cholesterol 25-OH Vitamin D Total PTH Intact Urine pH Urine WBC (Auto) Urine Creatinine Urine Total Protein Fluid Total Protein Vancomycin Trough Rheumatoid Factor Complement C4 Miscellaneous Test Crossmatch 09/15/16 09/15/16 09/15/16 14:32 17:33 23:35 WBC RBC Hgb Hct MCV MCH MCHC RDW Plt Count Lymph % (Auto) [place] % (Auto) Lymph # [place] # Baso # Seg Neutrophils % Seg Neuts % (Manual) Lymphocytes % (Manual) Monocytes % (Manual) Eosinophils % (Manual) Basophils % (Manual) Nucleated RBC % Seg Neutrophils # Seg Neutrophils # Man Lymphocytes # (Manual) Monocytes # (Manual) Eosinophils # (Manual) Basophils # (Manual) PT INR Fibrinogen dRVVT Confirm Interp Factor V Activity POC ABG pH POC ABG pCO2 27.7 L POC ABG pO2 120 H ABG pO2 ABG HCO3 ABG Base Excess ABG Hemoglobin Oxyhemoglobin Sodium Potassium Chloride Carbon Dioxide BUN Creatinine Glucose POC Glucose 232 H 167 H Lactic Acid Calcium Ionized Calcium Phosphorus Magnesium Direct Bilirubin AST ALT Alkaline Phosphatase Lactate Dehydrogenase Troponin T C-Reactive Protein Total Protein Albumin Prealbumin Triglycerides Cholesterol LDL Cholesterol Direct HDL Cholesterol 25-OH Vitamin D Total PTH Intact Urine pH Urine WBC (Auto) Urine Creatinine Urine Total Protein Fluid Total Protein Vancomycin Trough Rheumatoid Factor Complement C4 Miscellaneous Test Crossmatch 09/16/16 09/16/16 09/16/16 03:58 10:27 10:27 WBC 19.0 H RBC 2.77 L Hgb 6.5 L Hct 20.9 L MCV 76 L MCH 23 L MCHC RDW 19.3 H Plt Count Lymph % (Auto) 11.0 L [place] % (Auto) Lymph # [place] # 1.1 H Baso # Seg Neutrophils % 82.5 H Seg Neuts % (Manual) Lymphocytes % (Manual) Monocytes % (Manual) Eosinophils % (Manual) Basophils % (Manual) Nucleated RBC % Seg Neutrophils # 15.7 H Seg Neutrophils # Man Lymphocytes # (Manual) Monocytes # (Manual) Eosinophils # (Manual) Basophils # (Manual) PT INR Fibrinogen dRVVT Confirm Interp Factor V Activity POC ABG pH POC ABG pCO2 POC ABG pO2 ABG pO2 ABG HCO3 ABG Base Excess ABG Hemoglobin Oxyhemoglobin Sodium Potassium Chloride 109.3 H Carbon Dioxide 18 L BUN 139 H Creatinine 4.1 H Glucose 144 H POC Glucose 146 H Lactic Acid Calcium 8.1 L Ionized Calcium Phosphorus Magnesium Direct Bilirubin AST ALT Alkaline Phosphatase Lactate Dehydrogenase Troponin T C-Reactive Protein Total Protein Albumin Prealbumin Triglycerides Cholesterol LDL Cholesterol Direct HDL Cholesterol 25-OH Vitamin D Total PTH Intact Urine pH Urine WBC (Auto) Urine Creatinine Urine Total Protein Fluid Total Protein Vancomycin Trough Rheumatoid Factor Complement C4 Miscellaneous Test Crossmatch 09/16/16 09/16/16 09/16/16 12:04 12:10 13:55 WBC RBC Hgb Hct MCV MCH MCHC RDW Plt Count Lymph % (Auto) [place] % (Auto) Lymph # [place] # Baso # Seg Neutrophils % Seg Neuts % (Manual) Lymphocytes % (Manual) Monocytes % (Manual) Eosinophils % (Manual) Basophils % (Manual) Nucleated RBC % Seg Neutrophils # Seg Neutrophils # Man Lymphocytes # (Manual) Monocytes # (Manual) Eosinophils # (Manual) Basophils # (Manual) PT INR Fibrinogen dRVVT Confirm Interp Factor V Activity POC ABG pH POC ABG pCO2 32.9 L POC ABG pO2 ABG pO2 ABG HCO3 ABG Base Excess ABG Hemoglobin Oxyhemoglobin Sodium Potassium Chloride Carbon Dioxide BUN Creatinine Glucose POC Glucose 185 H Lactic Acid Calcium Ionized Calcium Phosphorus Magnesium Direct Bilirubin AST ALT Alkaline Phosphatase Lactate Dehydrogenase Troponin T C-Reactive Protein Total Protein Albumin Prealbumin Triglycerides Cholesterol LDL Cholesterol Direct HDL Cholesterol 25-OH Vitamin D Total PTH Intact Urine pH Urine WBC (Auto) Urine Creatinine Urine Total Protein Fluid Total Protein Vancomycin Trough Rheumatoid Factor Complement C4 Miscellaneous Test Crossmatch See Detail 09/16/16 09/16/16 09/16/16 17:55 19:19 23:48 WBC RBC Hgb Hct MCV MCH MCHC RDW Plt Count Lymph % (Auto) [place] % (Auto) Lymph # [place] # Baso # Seg Neutrophils % Seg Neuts % (Manual) Lymphocytes % (Manual) Monocytes % (Manual) Eosinophils % (Manual) Basophils % (Manual) Nucleated RBC % Seg Neutrophils # Seg Neutrophils # Man Lymphocytes # (Manual) Monocytes # (Manual) Eosinophils # (Manual) Basophils # (Manual) PT INR Fibrinogen dRVVT Confirm Interp Factor V Activity POC ABG pH POC ABG pCO2 POC ABG pO2 ABG pO2 ABG HCO3 ABG Base Excess ABG Hemoglobin Oxyhemoglobin Sodium Potassium Chloride Carbon Dioxide BUN Creatinine Glucose POC Glucose 222 H 107 H Lactic Acid Calcium Ionized Calcium Phosphorus Magnesium Direct Bilirubin AST ALT Alkaline Phosphatase Lactate Dehydrogenase Troponin T C-Reactive Protein Total Protein Albumin Prealbumin Triglycerides Cholesterol LDL Cholesterol Direct HDL Cholesterol 25-OH Vitamin D Total PTH Intact Urine pH Urine WBC (Auto) Urine Creatinine 47.4 H Urine Total Protein 16 H Fluid Total Protein Vancomycin Trough Rheumatoid Factor Complement C4 Miscellaneous Test Crossmatch 09/17/16 09/17/16 09/17/16 03:45 03:45 04:55 WBC 19.6 H RBC 3.41 L Hgb 8.5 L Hct 26.7 L MCV 78 L MCH 25 L MCHC RDW 19.9 H Plt Count Lymph % (Auto) 9.3 L [place] % (Auto) Lymph # [place] # 1.2 H Baso # Seg Neutrophils % 83.9 H Seg Neuts % (Manual) Lymphocytes % (Manual) Monocytes % (Manual) Eosinophils % (Manual) Basophils % (Manual) Nucleated RBC % Seg Neutrophils # 16.4 H Seg Neutrophils # Man Lymphocytes # (Manual) Monocytes # (Manual) Eosinophils # (Manual) Basophils # (Manual) PT INR Fibrinogen dRVVT Confirm Interp Factor V Activity POC ABG pH POC ABG pCO2 POC ABG pO2 ABG pO2 ABG HCO3 ABG Base Excess ABG Hemoglobin Oxyhemoglobin Sodium 146 H Potassium 5.1 H Chloride 110.9 H Carbon Dioxide 16 L BUN 146 H Creatinine 4.0 H Glucose 108 H POC Glucose 133 H Lactic Acid Calcium Ionized Calcium Phosphorus Magnesium 3.00 H Direct Bilirubin AST ALT Alkaline Phosphatase Lactate Dehydrogenase Troponin T C-Reactive Protein Total Protein Albumin Prealbumin Triglycerides Cholesterol LDL Cholesterol Direct HDL Cholesterol 25-OH Vitamin D Total PTH Intact Urine pH Urine WBC (Auto) Urine Creatinine Urine Total Protein Fluid Total Protein Vancomycin Trough Rheumatoid Factor Complement C4 Miscellaneous Test Crossmatch 09/17/16 09/17/16 09/17/16 11:15 17:33 23:47 WBC RBC Hgb Hct MCV MCH MCHC RDW Plt Count Lymph % (Auto) [place] % (Auto) Lymph # [place] # Baso # Seg Neutrophils % Seg Neuts % (Manual) Lymphocytes % (Manual) Monocytes % (Manual) Eosinophils % (Manual) Basophils % (Manual) Nucleated RBC % Seg Neutrophils # Seg Neutrophils # Man Lymphocytes # (Manual) Monocytes # (Manual) Eosinophils # (Manual) Basophils # (Manual) PT INR Fibrinogen dRVVT Confirm Interp Factor V Activity POC ABG pH POC ABG pCO2 POC ABG pO2 ABG pO2 ABG HCO3 ABG Base Excess ABG Hemoglobin Oxyhemoglobin Sodium Potassium Chloride Carbon Dioxide BUN Creatinine Glucose POC Glucose 176 H 246 H 148 H Lactic Acid Calcium Ionized Calcium Phosphorus Magnesium Direct Bilirubin AST ALT Alkaline Phosphatase Lactate Dehydrogenase Troponin T C-Reactive Protein Total Protein Albumin Prealbumin Triglycerides Cholesterol LDL Cholesterol Direct HDL Cholesterol 25-OH Vitamin D Total PTH Intact Urine pH Urine WBC (Auto) Urine Creatinine Urine Total Protein Fluid Total Protein Vancomycin Trough Rheumatoid Factor Complement C4 Miscellaneous Test Crossmatch 09/18/16 09/18/16 09/18/16 05:33 08:31 08:31 WBC 18.0 H RBC 3.17 L Hgb 9.0 L Hct 25.7 L MCV MCH MCHC 35 H RDW 20.4 H Plt Count Lymph % (Auto) [place] % (Auto) Lymph # [place] # Baso # Seg Neutrophils % Seg Neuts % (Manual) Lymphocytes % (Manual) Monocytes % (Manual) Eosinophils % (Manual) Basophils % (Manual) Nucleated RBC % Seg Neutrophils # Seg Neutrophils # Man Lymphocytes # (Manual) Monocytes # (Manual) Eosinophils # (Manual) Basophils # (Manual) PT INR Fibrinogen dRVVT Confirm Interp Factor V Activity POC ABG pH POC ABG pCO2 POC ABG pO2 ABG pO2 ABG HCO3 ABG Base Excess ABG Hemoglobin Oxyhemoglobin Sodium Potassium Chloride Carbon Dioxide 15 L BUN 124 H Creatinine 3.8 H Glucose POC Glucose 120 H Lactic Acid Calcium 8.1 L Ionized Calcium Phosphorus Magnesium Direct Bilirubin AST ALT Alkaline Phosphatase Lactate Dehydrogenase Troponin T C-Reactive Protein Total Protein Albumin Prealbumin Triglycerides Cholesterol LDL Cholesterol Direct HDL Cholesterol 25-OH Vitamin D Total PTH Intact Urine pH Urine WBC (Auto) Urine Creatinine Urine Total Protein Fluid Total Protein Vancomycin Trough Rheumatoid Factor Complement C4 Miscellaneous Test Crossmatch 09/18/16 09/18/16 09/18/16 12:03 15:34 17:50 WBC RBC Hgb Hct MCV MCH MCHC RDW Plt Count Lymph % (Auto) [place] % (Auto) Lymph # [place] # Baso # Seg Neutrophils % Seg Neuts % (Manual) Lymphocytes % (Manual) Monocytes % (Manual) Eosinophils % (Manual) Basophils % (Manual) Nucleated RBC % Seg Neutrophils # Seg Neutrophils # Man Lymphocytes # (Manual) Monocytes # (Manual) Eosinophils # (Manual) Basophils # (Manual) PT INR Fibrinogen dRVVT Confirm Interp Factor V Activity POC ABG pH POC ABG pCO2 25.7 L POC ABG pO2 66 L ABG pO2 ABG HCO3 ABG Base Excess ABG Hemoglobin Oxyhemoglobin Sodium Potassium Chloride Carbon Dioxide BUN Creatinine Glucose POC Glucose 156 H 220 H Lactic Acid Calcium Ionized Calcium Phosphorus Magnesium Direct Bilirubin AST ALT Alkaline Phosphatase Lactate Dehydrogenase Troponin T C-Reactive Protein Total Protein Albumin Prealbumin Triglycerides Cholesterol LDL Cholesterol Direct HDL Cholesterol 25-OH Vitamin D Total PTH Intact Urine pH Urine WBC (Auto) Urine Creatinine Urine Total Protein Fluid Total Protein Vancomycin Trough Rheumatoid Factor Complement C4 Miscellaneous Test Crossmatch 09/19/16 09/19/16 09/19/16 06:21 09:50 09:50 WBC 17.1 H RBC 3.49 L Hgb 9.0 L Hct 28.1 L MCV MCH 26 L MCHC RDW 20.8 H Plt Count Lymph % (Auto) 11.5 L [place] % (Auto) 7.5 H Lymph # [place] # 1.3 H Baso # Seg Neutrophils % 79.8 H Seg Neuts % (Manual) Lymphocytes % (Manual) Monocytes % (Manual) Eosinophils % (Manual) Basophils % (Manual) Nucleated RBC % Seg Neutrophils # 13.7 H Seg Neutrophils # Man Lymphocytes # (Manual) Monocytes # (Manual) Eosinophils # (Manual) Basophils # (Manual) PT INR Fibrinogen dRVVT Confirm Interp Factor V Activity POC ABG pH POC ABG pCO2 POC ABG pO2 ABG pO2 ABG HCO3 ABG Base Excess ABG Hemoglobin Oxyhemoglobin Sodium Potassium Chloride 108.6 H Carbon Dioxide 15 L BUN 125 H Creatinine 4.1 H Glucose 124 H POC Glucose 119 H Lactic Acid Calcium Ionized Calcium Phosphorus Magnesium Direct Bilirubin AST ALT Alkaline Phosphatase Lactate Dehydrogenase Troponin T C-Reactive Protein Total Protein Albumin Prealbumin Triglycerides Cholesterol LDL Cholesterol Direct HDL Cholesterol 25-OH Vitamin D Total PTH Intact Urine pH Urine WBC (Auto) Urine Creatinine Urine Total Protein Fluid Total Protein Vancomycin Trough Rheumatoid Factor Complement C4 Miscellaneous Test Crossmatch 09/19/16 09/19/16 09/19/16 11:25 17:53 23:36 WBC RBC Hgb Hct MCV MCH MCHC RDW Plt Count Lymph % (Auto) [place] % (Auto) Lymph # [place] # Baso # Seg Neutrophils % Seg Neuts % (Manual) Lymphocytes % (Manual) Monocytes % (Manual) Eosinophils % (Manual) Basophils % (Manual) Nucleated RBC % Seg Neutrophils # Seg Neutrophils # Man Lymphocytes # (Manual) Monocytes # (Manual) Eosinophils # (Manual) Basophils # (Manual) PT INR Fibrinogen dRVVT Confirm Interp Factor V Activity POC ABG pH POC ABG pCO2 POC ABG pO2 ABG pO2 ABG HCO3 ABG Base Excess ABG Hemoglobin Oxyhemoglobin Sodium Potassium Chloride Carbon Dioxide BUN Creatinine Glucose POC Glucose 160 H 245 H 121 H Lactic Acid Calcium Ionized Calcium Phosphorus Magnesium Direct Bilirubin AST ALT Alkaline Phosphatase Lactate Dehydrogenase Troponin T C-Reactive Protein Total Protein Albumin Prealbumin Triglycerides Cholesterol LDL Cholesterol Direct HDL Cholesterol 25-OH Vitamin D Total PTH Intact Urine pH Urine WBC (Auto) Urine Creatinine Urine Total Protein Fluid Total Protein Vancomycin Trough Rheumatoid Factor Complement C4 Miscellaneous Test Crossmatch 09/20/16 09/20/16 09/20/16 04:10 04:10 04:10 WBC 17.0 H RBC 3.21 L Hgb 8.2 L Hct 25.5 L MCV MCH 26 L MCHC RDW 20.9 H Plt Count Lymph % (Auto) [place] % (Auto) Lymph # [place] # Baso # Seg Neutrophils % Seg Neuts % (Manual) Lymphocytes % (Manual) Monocytes % (Manual) Eosinophils % (Manual) Basophils % (Manual) Nucleated RBC % Seg Neutrophils # Seg Neutrophils # Man Lymphocytes # (Manual) Monocytes # (Manual) Eosinophils # (Manual) Basophils # (Manual) PT INR Fibrinogen dRVVT Confirm Interp Factor V Activity POC ABG pH POC ABG pCO2 POC ABG pO2 ABG pO2 ABG HCO3 ABG Base Excess ABG Hemoglobin Oxyhemoglobin Sodium Potassium Chloride 111.0 H Carbon Dioxide 16 L BUN 129 H Creatinine 3.7 H Glucose 115 H POC Glucose Lactic Acid Calcium 8.2 L Ionized Calcium Phosphorus Magnesium Direct Bilirubin AST ALT Alkaline Phosphatase Lactate Dehydrogenase Troponin T C-Reactive Protein Total Protein Albumin Prealbumin Triglycerides 243 H Cholesterol LDL Cholesterol Direct HDL Cholesterol 25-OH Vitamin D Total PTH Intact Urine pH Urine WBC (Auto) Urine Creatinine Urine Total Protein Fluid Total Protein Vancomycin Trough Rheumatoid Factor Complement C4 Miscellaneous Test Crossmatch 09/20/16 09/20/16 09/20/16 05:40 11:52 16:50 WBC RBC Hgb Hct MCV MCH MCHC RDW Plt Count Lymph % (Auto) [place] % (Auto) Lymph # [place] # Baso # Seg Neutrophils % Seg Neuts % (Manual) Lymphocytes % (Manual) Monocytes % (Manual) Eosinophils % (Manual) Basophils % (Manual) Nucleated RBC % Seg Neutrophils # Seg Neutrophils # Man Lymphocytes # (Manual) Monocytes # (Manual) Eosinophils # (Manual) Basophils # (Manual) PT INR Fibrinogen dRVVT Confirm Interp Factor V Activity POC ABG pH POC ABG pCO2 POC ABG pO2 ABG pO2 ABG HCO3 ABG Base Excess ABG Hemoglobin Oxyhemoglobin Sodium Potassium Chloride Carbon Dioxide BUN Creatinine Glucose POC Glucose 131 H 183 H 236 H Lactic Acid Calcium Ionized Calcium Phosphorus Magnesium Direct Bilirubin AST ALT Alkaline Phosphatase Lactate Dehydrogenase Troponin T C-Reactive Protein Total Protein Albumin Prealbumin Triglycerides Cholesterol LDL Cholesterol Direct HDL Cholesterol 25-OH Vitamin D Total PTH Intact Urine pH Urine WBC (Auto) Urine Creatinine Urine Total Protein Fluid Total Protein Vancomycin Trough Rheumatoid Factor Complement C4 Miscellaneous Test Crossmatch 09/20/16 09/21/16 09/21/16 23:51 03:30 04:44 WBC RBC Hgb Hct MCV MCH MCHC RDW Plt Count Lymph % (Auto) [place] % (Auto) Lymph # [place] # Baso # Seg Neutrophils % Seg Neuts % (Manual) Lymphocytes % (Manual) Monocytes % (Manual) Eosinophils % (Manual) Basophils % (Manual) Nucleated RBC % Seg Neutrophils # Seg Neutrophils # Man Lymphocytes # (Manual) Monocytes # (Manual) Eosinophils # (Manual) Basophils # (Manual) PT INR Fibrinogen dRVVT Confirm Interp Factor V Activity POC ABG pH POC ABG pCO2 POC ABG pO2 ABG pO2 ABG HCO3 ABG Base Excess ABG Hemoglobin Oxyhemoglobin Sodium Potassium Chloride Carbon Dioxide BUN Creatinine Glucose POC Glucose 114 H 141 H Lactic Acid Calcium Ionized Calcium Phosphorus Magnesium 2.70 H Direct Bilirubin AST ALT Alkaline Phosphatase Lactate Dehydrogenase Troponin T C-Reactive Protein Total Protein Albumin Prealbumin Triglycerides Cholesterol LDL Cholesterol Direct HDL Cholesterol 25-OH Vitamin D Total PTH Intact Urine pH Urine WBC (Auto) Urine Creatinine Urine Total Protein Fluid Total Protein Vancomycin Trough Rheumatoid Factor Complement C4 Miscellaneous Test Crossmatch 09/21/16 09/21/16 09/21/16 07:45 07:45 10:01 WBC 13.8 H RBC 2.94 L Hgb 7.5 L Hct 23.5 L MCV MCH 26 L MCHC RDW 21.2 H Plt Count Lymph % (Auto) 6.9 L [place] % (Auto) 9.4 H Lymph # 0.9 L [place] # 1.3 H Baso # Seg Neutrophils % 83.2 H Seg Neuts % (Manual) Lymphocytes % (Manual) Monocytes % (Manual) Eosinophils % (Manual) Basophils % (Manual) Nucleated RBC % Seg Neutrophils # 11.5 H Seg Neutrophils # Man Lymphocytes # (Manual) Monocytes # (Manual) Eosinophils # (Manual) Basophils # (Manual) PT INR Fibrinogen dRVVT Confirm Interp Factor V Activity POC ABG pH 7.308 L POC ABG pCO2 31.9 L POC ABG pO2 148 H ABG pO2 ABG HCO3 ABG Base Excess ABG Hemoglobin Oxyhemoglobin Sodium 147 H Potassium Chloride 114.2 H Carbon Dioxide 15 L BUN 120 H Creatinine 3.9 H Glucose 156 H POC Glucose Lactic Acid Calcium 8.2 L Ionized Calcium Phosphorus Magnesium Direct Bilirubin AST ALT Alkaline Phosphatase Lactate Dehydrogenase Troponin T C-Reactive Protein Total Protein Albumin Prealbumin Triglycerides Cholesterol LDL Cholesterol Direct HDL Cholesterol 25-OH Vitamin D Total PTH Intact Urine pH Urine WBC (Auto) Urine Creatinine Urine Total Protein Fluid Total Protein Vancomycin Trough Rheumatoid Factor Complement C4 Miscellaneous Test Crossmatch 09/21/16 09/21/16 09/21/16 12:00 12:03 13:00 WBC RBC Hgb Hct MCV MCH MCHC RDW Plt Count Lymph % (Auto) [place] % (Auto) Lymph # [place] # Baso # Seg Neutrophils % Seg Neuts % (Manual) Lymphocytes % (Manual) Monocytes % (Manual) Eosinophils % (Manual) Basophils % (Manual) Nucleated RBC % Seg Neutrophils # Seg Neutrophils # Man Lymphocytes # (Manual) Monocytes # (Manual) Eosinophils # (Manual) Basophils # (Manual) PT INR Fibrinogen dRVVT Confirm Interp Factor V Activity POC ABG pH POC ABG pCO2 POC ABG pO2 ABG pO2 ABG HCO3 ABG Base Excess ABG Hemoglobin Oxyhemoglobin Sodium Potassium Chloride Carbon Dioxide BUN Creatinine Glucose POC Glucose 163 H Lactic Acid Calcium Ionized Calcium Phosphorus Magnesium Direct Bilirubin AST ALT Alkaline Phosphatase Lactate Dehydrogenase Troponin T C-Reactive Protein Total Protein Albumin Prealbumin Triglycerides Cholesterol LDL Cholesterol Direct HDL Cholesterol 25-OH Vitamin D Total PTH Intact Urine pH Urine WBC (Auto) Urine Creatinine 54.8 H Urine Total Protein Fluid Total Protein Vancomycin Trough 2.3 L Rheumatoid Factor Complement C4 Miscellaneous Test Crossmatch 09/21/16 09/21/16 09/22/16 16:51 23:17 06:27 WBC RBC Hgb Hct MCV MCH MCHC RDW Plt Count Lymph % (Auto) [place] % (Auto) Lymph # [place] # Baso # Seg Neutrophils % Seg Neuts % (Manual) Lymphocytes % (Manual) Monocytes % (Manual) Eosinophils % (Manual) Basophils % (Manual) Nucleated RBC % Seg Neutrophils # Seg Neutrophils # Man Lymphocytes # (Manual) Monocytes # (Manual) Eosinophils # (Manual) Basophils # (Manual) PT INR Fibrinogen dRVVT Confirm Interp Factor V Activity POC ABG pH POC ABG pCO2 POC ABG pO2 ABG pO2 ABG HCO3 ABG Base Excess ABG Hemoglobin Oxyhemoglobin Sodium Potassium Chloride Carbon Dioxide BUN Creatinine Glucose POC Glucose 206 H 114 H 115 H Lactic Acid Calcium Ionized Calcium Phosphorus Magnesium Direct Bilirubin AST ALT Alkaline Phosphatase Lactate Dehydrogenase Troponin T C-Reactive Protein Total Protein Albumin Prealbumin Triglycerides Cholesterol LDL Cholesterol Direct HDL Cholesterol 25-OH Vitamin D Total PTH Intact Urine pH Urine WBC (Auto) Urine Creatinine Urine Total Protein Fluid Total Protein Vancomycin Trough Rheumatoid Factor Complement C4 Miscellaneous Test Crossmatch 09/22/16 09/22/16 09/22/16 07:50 07:50 12:00 WBC 17.8 H RBC 3.04 L Hgb 8.0 L Hct 24.7 L MCV MCH 26 L MCHC RDW 21.6 H Plt Count Lymph % (Auto) [place] % (Auto) Lymph # [place] # Baso # Seg Neutrophils % Seg Neuts % (Manual) Lymphocytes % (Manual) Monocytes % (Manual) Eosinophils % (Manual) Basophils % (Manual) Nucleated RBC % Seg Neutrophils # Seg Neutrophils # Man Lymphocytes # (Manual) Monocytes # (Manual) Eosinophils # (Manual) Basophils # (Manual) PT INR Fibrinogen dRVVT Confirm Interp Factor V Activity POC ABG pH POC ABG pCO2 POC ABG pO2 ABG pO2 ABG HCO3 ABG Base Excess ABG Hemoglobin Oxyhemoglobin Sodium 150 H Potassium Chloride 118.2 H Carbon Dioxide 14 L BUN 111 H Creatinine 3.7 H Glucose 157 H POC Glucose 183 H Lactic Acid Calcium Ionized Calcium Phosphorus Magnesium Direct Bilirubin AST ALT Alkaline Phosphatase Lactate Dehydrogenase Troponin T C-Reactive Protein Total Protein Albumin Prealbumin Triglycerides Cholesterol LDL Cholesterol Direct HDL Cholesterol 25-OH Vitamin D Total PTH Intact Urine pH Urine WBC (Auto) Urine Creatinine Urine Total Protein Fluid Total Protein Vancomycin Trough Rheumatoid Factor Complement C4 Miscellaneous Test Crossmatch 09/22/16 09/22/16 09/23/16 17:29 23:10 05:00 WBC 19.2 H RBC 3.13 L Hgb 8.0 L Hct 25.2 L MCV MCH 26 L MCHC RDW 22.1 H Plt Count Lymph % (Auto) [place] % (Auto) Lymph # [place] # Baso # Seg Neutrophils % Seg Neuts % (Manual) 92.0 H Lymphocytes % (Manual) 3.0 L Monocytes % (Manual) Eosinophils % (Manual) Basophils % (Manual) Nucleated RBC % Seg Neutrophils # Seg Neutrophils # Man 17.7 H Lymphocytes # (Manual) 0.6 L Monocytes # (Manual) Eosinophils # (Manual) Basophils # (Manual) PT INR Fibrinogen dRVVT Confirm Interp Factor V Activity POC ABG pH POC ABG pCO2 POC ABG pO2 ABG pO2 ABG HCO3 ABG Base Excess ABG Hemoglobin Oxyhemoglobin Sodium Potassium Chloride Carbon Dioxide BUN Creatinine Glucose POC Glucose 197 H 169 H Lactic Acid Calcium Ionized Calcium Phosphorus Magnesium Direct Bilirubin AST ALT Alkaline Phosphatase Lactate Dehydrogenase Troponin T C-Reactive Protein Total Protein Albumin Prealbumin Triglycerides Cholesterol LDL Cholesterol Direct HDL Cholesterol 25-OH Vitamin D Total PTH Intact Urine pH Urine WBC (Auto) Urine Creatinine Urine Total Protein Fluid Total Protein Vancomycin Trough Rheumatoid Factor Complement C4 Miscellaneous Test Crossmatch 09/23/16 09/23/16 09/23/16 05:00 05:00 05:10 WBC RBC Hgb Hct MCV MCH MCHC RDW Plt Count Lymph % (Auto) [place] % (Auto) Lymph # [place] # Baso # Seg Neutrophils % Seg Neuts % (Manual) Lymphocytes % (Manual) Monocytes % (Manual) Eosinophils % (Manual) Basophils % (Manual) Nucleated RBC % Seg Neutrophils # Seg Neutrophils # Man Lymphocytes # (Manual) Monocytes # (Manual) Eosinophils # (Manual) Basophils # (Manual) PT INR Fibrinogen dRVVT Confirm Interp Factor V Activity POC ABG pH POC ABG pCO2 POC ABG pO2 ABG pO2 ABG HCO3 ABG Base Excess ABG Hemoglobin Oxyhemoglobin Sodium 147 H Potassium 3.2 L Chloride 115.7 H Carbon Dioxide 13 L BUN 111 H Creatinine 3.8 H Glucose 194 H POC Glucose 188 H Lactic Acid Calcium 7.3 L D Ionized Calcium Phosphorus Magnesium Direct Bilirubin AST ALT Alkaline Phosphatase Lactate Dehydrogenase Troponin T C-Reactive Protein 3.20 H Total Protein Albumin Prealbumin Triglycerides Cholesterol LDL Cholesterol Direct HDL Cholesterol 25-OH Vitamin D Total PTH Intact Urine pH Urine WBC (Auto) Urine Creatinine Urine Total Protein Fluid Total Protein Vancomycin Trough Rheumatoid Factor Complement C4 Miscellaneous Test Crossmatch 09/23/16 09/23/16 09/23/16 11:37 12:29 18:01 WBC RBC Hgb Hct MCV MCH MCHC RDW Plt Count Lymph % (Auto) [place] % (Auto) Lymph # [place] # Baso # Seg Neutrophils % Seg Neuts % (Manual) Lymphocytes % (Manual) Monocytes % (Manual) Eosinophils % (Manual) Basophils % (Manual) Nucleated RBC % Seg Neutrophils # Seg Neutrophils # Man Lymphocytes # (Manual) Monocytes # (Manual) Eosinophils # (Manual) Basophils # (Manual) PT INR Fibrinogen dRVVT Confirm Interp Factor V Activity POC ABG pH POC ABG pCO2 18.9 L POC ABG pO2 143 H ABG pO2 ABG HCO3 ABG Base Excess ABG Hemoglobin Oxyhemoglobin Sodium Potassium Chloride Carbon Dioxide BUN Creatinine Glucose POC Glucose 153 H 108 H Lactic Acid Calcium Ionized Calcium Phosphorus Magnesium Direct Bilirubin AST ALT Alkaline Phosphatase Lactate Dehydrogenase Troponin T C-Reactive Protein Total Protein Albumin Prealbumin Triglycerides Cholesterol LDL Cholesterol Direct HDL Cholesterol 25-OH Vitamin D Total PTH Intact Urine pH Urine WBC (Auto) Urine Creatinine Urine Total Protein Fluid Total Protein Vancomycin Trough Rheumatoid Factor Complement C4 Miscellaneous Test Crossmatch 09/23/16 09/23/16 09/24/16 21:19 23:43 05:16 WBC RBC Hgb Hct MCV MCH MCHC RDW Plt Count Lymph % (Auto) [place] % (Auto) Lymph # [place] # Baso # Seg Neutrophils % Seg Neuts % (Manual) Lymphocytes % (Manual) Monocytes % (Manual) Eosinophils % (Manual) Basophils % (Manual) Nucleated RBC % Seg Neutrophils # Seg Neutrophils # Man Lymphocytes # (Manual) Monocytes # (Manual) Eosinophils # (Manual) Basophils # (Manual) PT INR Fibrinogen dRVVT Confirm Interp Factor V Activity POC ABG pH POC ABG pCO2 17.3 L POC ABG pO2 112 H ABG pO2 ABG HCO3 ABG Base Excess ABG Hemoglobin Oxyhemoglobin Sodium Potassium Chloride Carbon Dioxide BUN Creatinine Glucose POC Glucose 143 H 164 H Lactic Acid Calcium Ionized Calcium Phosphorus Magnesium Direct Bilirubin AST ALT Alkaline Phosphatase Lactate Dehydrogenase Troponin T C-Reactive Protein Total Protein Albumin Prealbumin Triglycerides Cholesterol LDL Cholesterol Direct HDL Cholesterol 25-OH Vitamin D Total PTH Intact Urine pH Urine WBC (Auto) Urine Creatinine Urine Total Protein Fluid Total Protein Vancomycin Trough Rheumatoid Factor Complement C4 Miscellaneous Test Crossmatch 09/24/16 09/24/16 09/24/16 05:21 11:58 17:06 WBC RBC Hgb Hct MCV MCH MCHC RDW Plt Count Lymph % (Auto) [place] % (Auto) Lymph # [place] # Baso # Seg Neutrophils % Seg Neuts % (Manual) Lymphocytes % (Manual) Monocytes % (Manual) Eosinophils % (Manual) Basophils % (Manual) Nucleated RBC % Seg Neutrophils # Seg Neutrophils # Man Lymphocytes # (Manual) Monocytes # (Manual) Eosinophils # (Manual) Basophils # (Manual) PT INR Fibrinogen dRVVT Confirm Interp Factor V Activity POC ABG pH POC ABG pCO2 POC ABG pO2 ABG pO2 ABG HCO3 ABG Base Excess ABG Hemoglobin Oxyhemoglobin Sodium Potassium Chloride Carbon Dioxide 10 L BUN 103 H Creatinine 4.3 H Glucose 163 H POC Glucose 173 H 167 H Lactic Acid Calcium 6.5 L Ionized Calcium Phosphorus Magnesium Direct Bilirubin AST ALT Alkaline Phosphatase Lactate Dehydrogenase Troponin T C-Reactive Protein Total Protein Albumin Prealbumin Triglycerides Cholesterol LDL Cholesterol Direct HDL Cholesterol 25-OH Vitamin D Total PTH Intact Urine pH Urine WBC (Auto) Urine Creatinine Urine Total Protein Fluid Total Protein Vancomycin Trough Rheumatoid Factor Complement C4 Miscellaneous Test Crossmatch 09/24/16 09/24/16 09/24/16 20:15 21:02 23:48 WBC RBC Hgb Hct MCV MCH MCHC RDW Plt Count Lymph % (Auto) [place] % (Auto) Lymph # [place] # Baso # Seg Neutrophils % Seg Neuts % (Manual) Lymphocytes % (Manual) Monocytes % (Manual) Eosinophils % (Manual) Basophils % (Manual) Nucleated RBC % Seg Neutrophils # Seg Neutrophils # Man Lymphocytes # (Manual) Monocytes # (Manual) Eosinophils # (Manual) Basophils # (Manual) PT INR Fibrinogen dRVVT Confirm Interp Factor V Activity POC ABG pH 7.288 L POC ABG pCO2 30.2 L 21.5 L POC ABG pO2 32 L 39 L ABG pO2 ABG HCO3 ABG Base Excess ABG Hemoglobin Oxyhemoglobin Sodium Potassium Chloride Carbon Dioxide BUN Creatinine Glucose POC Glucose 109 H Lactic Acid Calcium Ionized Calcium Phosphorus Magnesium Direct Bilirubin AST ALT Alkaline Phosphatase Lactate Dehydrogenase Troponin T C-Reactive Protein Total Protein Albumin Prealbumin Triglycerides Cholesterol LDL Cholesterol Direct HDL Cholesterol 25-OH Vitamin D Total PTH Intact Urine pH Urine WBC (Auto) Urine Creatinine Urine Total Protein Fluid Total Protein Vancomycin Trough Rheumatoid Factor Complement C4 Miscellaneous Test Crossmatch 09/25/16 09/25/16 09/25/16 04:20 04:20 04:20 WBC RBC 2.58 L Hgb 7.0 L Hct 21.0 L MCV MCH 27 L MCHC RDW 23.8 H Plt Count Lymph % (Auto) [place] % (Auto) Lymph # [place] # Baso # Seg Neutrophils % Seg Neuts % (Manual) Lymphocytes % (Manual) 12.0 L Monocytes % (Manual) Eosinophils % (Manual) 7.0 H Basophils % (Manual) 2.0 H Nucleated RBC % Seg Neutrophils # Seg Neutrophils # Man Lymphocytes # (Manual) 0.9 L Monocytes # (Manual) Eosinophils # (Manual) 0.5 H Basophils # (Manual) PT INR Fibrinogen dRVVT Confirm Interp Factor V Activity POC ABG pH POC ABG pCO2 POC ABG pO2 ABG pO2 ABG HCO3 ABG Base Excess ABG Hemoglobin Oxyhemoglobin Sodium Potassium Chloride Carbon Dioxide 15 L BUN 72 H Creatinine 3.8 H Glucose POC Glucose Lactic Acid Calcium 6.0 L Ionized Calcium Phosphorus 4.60 H Magnesium 1.60 L Direct Bilirubin AST ALT Alkaline Phosphatase Lactate Dehydrogenase Troponin T C-Reactive Protein Total Protein Albumin Prealbumin Triglycerides Cholesterol LDL Cholesterol Direct HDL Cholesterol 25-OH Vitamin D Total PTH Intact Urine pH Urine WBC (Auto) Urine Creatinine Urine Total Protein Fluid Total Protein Vancomycin Trough Rheumatoid Factor Complement C4 Miscellaneous Test Crossmatch 09/25/16 09/25/16 09/25/16 04:57 08:02 10:30 WBC RBC Hgb Hct MCV MCH MCHC RDW Plt Count Lymph % (Auto) [place] % (Auto) Lymph # [place] # Baso # Seg Neutrophils % Seg Neuts % (Manual) Lymphocytes % (Manual) Monocytes % (Manual) Eosinophils % (Manual) Basophils % (Manual) Nucleated RBC % Seg Neutrophils # Seg Neutrophils # Man Lymphocytes # (Manual) Monocytes # (Manual) Eosinophils # (Manual) Basophils # (Manual) PT INR Fibrinogen dRVVT Confirm Interp Factor V Activity POC ABG pH POC ABG pCO2 24.7 L POC ABG pO2 152 H ABG pO2 ABG HCO3 ABG Base Excess ABG Hemoglobin Oxyhemoglobin Sodium Potassium Chloride Carbon Dioxide BUN Creatinine Glucose POC Glucose 113 H Lactic Acid Calcium Ionized Calcium Phosphorus Magnesium Direct Bilirubin AST ALT Alkaline Phosphatase Lactate Dehydrogenase Troponin T C-Reactive Protein Total Protein Albumin Prealbumin Triglycerides Cholesterol LDL Cholesterol Direct HDL Cholesterol 25-OH Vitamin D Total PTH Intact Urine pH Urine WBC (Auto) Urine Creatinine Urine Total Protein Fluid Total Protein Vancomycin Trough Rheumatoid Factor Complement C4 Miscellaneous Test Crossmatch See Detail 09/25/16 09/25/16 09/25/16 12:05 17:44 23:47 WBC RBC Hgb Hct MCV MCH MCHC RDW Plt Count Lymph % (Auto) [place] % (Auto) Lymph # [place] # Baso # Seg Neutrophils % Seg Neuts % (Manual) Lymphocytes % (Manual) Monocytes % (Manual) Eosinophils % (Manual) Basophils % (Manual) Nucleated RBC % Seg Neutrophils # Seg Neutrophils # Man Lymphocytes # (Manual) Monocytes # (Manual) Eosinophils # (Manual) Basophils # (Manual) PT INR Fibrinogen dRVVT Confirm Interp Factor V Activity POC ABG pH POC ABG pCO2 POC ABG pO2 ABG pO2 ABG HCO3 ABG Base Excess ABG Hemoglobin Oxyhemoglobin Sodium Potassium Chloride Carbon Dioxide BUN Creatinine Glucose POC Glucose 117 H 119 H 150 H Lactic Acid Calcium Ionized Calcium Phosphorus Magnesium Direct Bilirubin AST ALT Alkaline Phosphatase Lactate Dehydrogenase Troponin T C-Reactive Protein Total Protein Albumin Prealbumin Triglycerides Cholesterol LDL Cholesterol Direct HDL Cholesterol 25-OH Vitamin D Total PTH Intact Urine pH Urine WBC (Auto) Urine Creatinine Urine Total Protein Fluid Total Protein Vancomycin Trough Rheumatoid Factor Complement C4 Miscellaneous Test Crossmatch 09/26/16 09/26/16 09/26/16 04:25 04:25 04:25 WBC RBC 2.65 L Hgb 7.4 L Hct 21.6 L MCV MCH MCHC RDW 22.5 H Plt Count Lymph % (Auto) [place] % (Auto) Lymph # [place] # Baso # Seg Neutrophils % Seg Neuts % (Manual) Lymphocytes % (Manual) 6.0 L Monocytes % (Manual) Eosinophils % (Manual) 11.0 H Basophils % (Manual) Nucleated RBC % Seg Neutrophils # Seg Neutrophils # Man Lymphocytes # (Manual) 0.4 L Monocytes # (Manual) Eosinophils # (Manual) 0.6 H Basophils # (Manual) PT INR Fibrinogen dRVVT Confirm Interp Factor V Activity POC ABG pH POC ABG pCO2 POC ABG pO2 ABG pO2 ABG HCO3 ABG Base Excess ABG Hemoglobin Oxyhemoglobin Sodium Potassium Chloride 97.0 L Carbon Dioxide 19 L BUN 43 H Creatinine 2.6 H Glucose 130 H POC Glucose Lactic Acid 4.40 H* Calcium 6.7 L Ionized Calcium Phosphorus Magnesium Direct Bilirubin AST ALT Alkaline Phosphatase Lactate Dehydrogenase Troponin T C-Reactive Protein Total Protein Albumin Prealbumin Triglycerides Cholesterol LDL Cholesterol Direct HDL Cholesterol 25-OH Vitamin D Total PTH Intact Urine pH Urine WBC (Auto) Urine Creatinine Urine Total Protein Fluid Total Protein Vancomycin Trough Rheumatoid Factor Complement C4 Miscellaneous Test Crossmatch 09/26/16 09/26/16 09/26/16 05:20 11:44 12:12 WBC RBC Hgb Hct MCV MCH MCHC RDW Plt Count Lymph % (Auto) [place] % (Auto) Lymph # [place] # Baso # Seg Neutrophils % Seg Neuts % (Manual) Lymphocytes % (Manual) Monocytes % (Manual) Eosinophils % (Manual) Basophils % (Manual) Nucleated RBC % Seg Neutrophils # Seg Neutrophils # Man Lymphocytes # (Manual) Monocytes # (Manual) Eosinophils # (Manual) Basophils # (Manual) PT INR Fibrinogen dRVVT Confirm Interp Factor V Activity POC ABG pH POC ABG pCO2 27.0 L POC ABG pO2 69 L ABG pO2 ABG HCO3 ABG Base Excess ABG Hemoglobin Oxyhemoglobin Sodium Potassium Chloride Carbon Dioxide BUN Creatinine Glucose POC Glucose 121 H 128 H Lactic Acid Calcium Ionized Calcium Phosphorus Magnesium Direct Bilirubin AST ALT Alkaline Phosphatase Lactate Dehydrogenase Troponin T C-Reactive Protein Total Protein Albumin Prealbumin Triglycerides Cholesterol LDL Cholesterol Direct HDL Cholesterol 25-OH Vitamin D Total PTH Intact Urine pH Urine WBC (Auto) Urine Creatinine Urine Total Protein Fluid Total Protein Vancomycin Trough Rheumatoid Factor Complement C4 Miscellaneous Test Crossmatch 09/26/16 09/26/16 09/27/16 18:31 23:40 08:20 WBC RBC Hgb Hct MCV MCH MCHC RDW Plt Count Lymph % (Auto) [place] % (Auto) Lymph # [place] # Baso # Seg Neutrophils % Seg Neuts % (Manual) Lymphocytes % (Manual) Monocytes % (Manual) Eosinophils % (Manual) Basophils % (Manual) Nucleated RBC % Seg Neutrophils # Seg Neutrophils # Man Lymphocytes # (Manual) Monocytes # (Manual) Eosinophils # (Manual) Basophils # (Manual) PT INR Fibrinogen dRVVT Confirm Interp Factor V Activity POC ABG pH POC ABG pCO2 POC ABG pO2 ABG pO2 ABG HCO3 ABG Base Excess ABG Hemoglobin Oxyhemoglobin Sodium Potassium Chloride Carbon Dioxide BUN Creatinine Glucose POC Glucose 120 H 133 H Lactic Acid 4.10 H* Calcium Ionized Calcium Phosphorus Magnesium Direct Bilirubin AST ALT Alkaline Phosphatase Lactate Dehydrogenase Troponin T C-Reactive Protein Total Protein Albumin Prealbumin Triglycerides Cholesterol LDL Cholesterol Direct HDL Cholesterol 25-OH Vitamin D Total PTH Intact Urine pH Urine WBC (Auto) Urine Creatinine Urine Total Protein Fluid Total Protein Vancomycin Trough Rheumatoid Factor Complement C4 Miscellaneous Test Crossmatch 09/27/16 09/27/16 09/27/16 11:23 15:00 18:15 WBC RBC Hgb Hct MCV MCH MCHC RDW Plt Count Lymph % (Auto) [place] % (Auto) Lymph # [place] # Baso # Seg Neutrophils % Seg Neuts % (Manual) Lymphocytes % (Manual) Monocytes % (Manual) Eosinophils % (Manual) Basophils % (Manual) Nucleated RBC % Seg Neutrophils # Seg Neutrophils # Man Lymphocytes # (Manual) Monocytes # (Manual) Eosinophils # (Manual) Basophils # (Manual) PT INR Fibrinogen dRVVT Confirm Interp Factor V Activity POC ABG pH 7.459 H POC ABG pCO2 27.1 L POC ABG pO2 140 H ABG pO2 ABG HCO3 ABG Base Excess ABG Hemoglobin Oxyhemoglobin Sodium Potassium Chloride Carbon Dioxide BUN Creatinine Glucose POC Glucose 114 H 127 H Lactic Acid Calcium Ionized Calcium Phosphorus Magnesium Direct Bilirubin AST ALT Alkaline Phosphatase Lactate Dehydrogenase Troponin T C-Reactive Protein Total Protein Albumin Prealbumin Triglycerides Cholesterol LDL Cholesterol Direct HDL Cholesterol 25-OH Vitamin D Total PTH Intact Urine pH Urine WBC (Auto) Urine Creatinine Urine Total Protein Fluid Total Protein Vancomycin Trough Rheumatoid Factor Complement C4 Miscellaneous Test Crossmatch 09/27/16 09/27/16 09/28/16 Unknown Unknown 03:45 WBC RBC 2.49 L Hgb 6.8 L Hct 20.7 L MCV MCH 27 L MCHC RDW 22.1 H Plt Count Lymph % (Auto) [place] % (Auto) Lymph # [place] # Baso # Seg Neutrophils % Seg Neuts % (Manual) 32.0 L Lymphocytes % (Manual) 12.0 L Monocytes % (Manual) 11.0 H Eosinophils % (Manual) 10.0 H Basophils % (Manual) Nucleated RBC % Seg Neutrophils # Seg Neutrophils # Man Lymphocytes # (Manual) 1.0 L Monocytes # (Manual) 0.9 H Eosinophils # (Manual) 0.8 H Basophils # (Manual) PT INR Fibrinogen dRVVT Confirm Interp Factor V Activity POC ABG pH POC ABG pCO2 POC ABG pO2 ABG pO2 ABG HCO3 ABG Base Excess ABG Hemoglobin Oxyhemoglobin Sodium 135 L 135 L Potassium 3.5 L Chloride 93.6 L 94.4 L Carbon Dioxide 17 L 21 L BUN 45 H 28 H Creatinine 3.3 H 2.5 H Glucose 106 H POC Glucose Lactic Acid Calcium 7.3 L 7.1 L Ionized Calcium Phosphorus Magnesium Direct Bilirubin AST ALT Alkaline Phosphatase Lactate Dehydrogenase Troponin T C-Reactive Protein Total Protein Albumin Prealbumin Triglycerides Cholesterol LDL Cholesterol Direct HDL Cholesterol 25-OH Vitamin D Total PTH Intact Urine pH Urine WBC (Auto) Urine Creatinine Urine Total Protein Fluid Total Protein Vancomycin Trough Rheumatoid Factor Complement C4 Miscellaneous Test Crossmatch 09/28/16 09/28/16 09/28/16 03:45 07:25 11:58 WBC 13.3 H RBC 3.01 L Hgb 8.4 L Hct 25.0 L MCV MCH MCHC RDW 20.5 H Plt Count 128 L Lymph % (Auto) [place] % (Auto) Lymph # [place] # Baso # Seg Neutrophils % Seg Neuts % (Manual) Lymphocytes % (Manual) 7.0 L Monocytes % (Manual) Eosinophils % (Manual) 6.0 H Basophils % (Manual) Nucleated RBC % Seg Neutrophils # Seg Neutrophils # Man Lymphocytes # (Manual) 0.9 L Monocytes # (Manual) Eosinophils # (Manual) 0.8 H Basophils # (Manual) PT INR Fibrinogen dRVVT Confirm Interp Factor V Activity POC ABG pH POC ABG pCO2 POC ABG pO2 ABG pO2 ABG HCO3 ABG Base Excess ABG Hemoglobin Oxyhemoglobin Sodium Potassium Chloride Carbon Dioxide BUN Creatinine Glucose POC Glucose 121 H Lactic Acid 4.50 H* Calcium Ionized Calcium Phosphorus Magnesium Direct Bilirubin AST ALT Alkaline Phosphatase Lactate Dehydrogenase Troponin T C-Reactive Protein Total Protein Albumin Prealbumin Triglycerides Cholesterol LDL Cholesterol Direct HDL Cholesterol 25-OH Vitamin D Total PTH Intact Urine pH Urine WBC (Auto) Urine Creatinine Urine Total Protein Fluid Total Protein Vancomycin Trough Rheumatoid Factor Complement C4 Miscellaneous Test Crossmatch 09/29/16 09/29/16 09/29/16 06:45 06:45 06:45 WBC 14.9 H RBC 2.74 L Hgb 7.6 L Hct 23.2 L MCV MCH MCHC RDW 20.5 H Plt Count 81 L Lymph % (Auto) [place] % (Auto) Lymph # [place] # Baso # Seg Neutrophils % Seg Neuts % (Manual) 81.0 H Lymphocytes % (Manual) 4.0 L Monocytes % (Manual) Eosinophils % (Manual) Basophils % (Manual) Nucleated RBC % Seg Neutrophils # Seg Neutrophils # Man 12.1 H Lymphocytes # (Manual) 0.6 L Monocytes # (Manual) Eosinophils # (Manual) Basophils # (Manual) PT INR Fibrinogen dRVVT Confirm Interp Factor V Activity POC ABG pH POC ABG pCO2 POC ABG pO2 ABG pO2 ABG HCO3 ABG Base Excess ABG Hemoglobin Oxyhemoglobin Sodium 133 L Potassium 3.4 L Chloride 92.5 L Carbon Dioxide 21 L BUN 33 H Creatinine 3.0 H Glucose POC Glucose Lactic Acid Calcium 6.6 L Ionized Calcium Phosphorus Magnesium 1.40 L Direct Bilirubin 0.9 H AST ALT Alkaline Phosphatase Lactate Dehydrogenase Troponin T C-Reactive Protein Total Protein 4.3 L Albumin 1.3 L Prealbumin Triglycerides Cholesterol LDL Cholesterol Direct HDL Cholesterol 25-OH Vitamin D Total PTH Intact Urine pH Urine WBC (Auto) Urine Creatinine Urine Total Protein Fluid Total Protein Vancomycin Trough Rheumatoid Factor Complement C4 Miscellaneous Test Crossmatch 09/29/16 09/29/16 09/30/16 17:52 20:12 00:07 WBC RBC Hgb Hct MCV MCH MCHC RDW Plt Count Lymph % (Auto) [place] % (Auto) Lymph # [place] # Baso # Seg Neutrophils % Seg Neuts % (Manual) Lymphocytes % (Manual) Monocytes % (Manual) Eosinophils % (Manual) Basophils % (Manual) Nucleated RBC % Seg Neutrophils # Seg Neutrophils # Man Lymphocytes # (Manual) Monocytes # (Manual) Eosinophils # (Manual) Basophils # (Manual) PT INR Fibrinogen dRVVT Confirm Interp Factor V Activity POC ABG pH POC ABG pCO2 POC ABG pO2 ABG pO2 ABG HCO3 ABG Base Excess ABG Hemoglobin Oxyhemoglobin Sodium Potassium Chloride Carbon Dioxide BUN Creatinine Glucose POC Glucose 50 L 51 L Lactic Acid Calcium Ionized Calcium Phosphorus Magnesium Direct Bilirubin AST ALT Alkaline Phosphatase Lactate Dehydrogenase Troponin T 0.204 H* C-Reactive Protein Total Protein Albumin Prealbumin Triglycerides Cholesterol 31 L LDL Cholesterol Direct 4 L HDL Cholesterol 3 L 25-OH Vitamin D Total PTH Intact Urine pH Urine WBC (Auto) Urine Creatinine Urine Total Protein Fluid Total Protein Vancomycin Trough Rheumatoid Factor Complement C4 Miscellaneous Test Crossmatch 09/30/16 09/30/16 09/30/16 01:30 05:15 06:10 WBC RBC Hgb Hct MCV MCH MCHC RDW Plt Count Lymph % (Auto) [place] % (Auto) Lymph # [place] # Baso # Seg Neutrophils % Seg Neuts % (Manual) Lymphocytes % (Manual) Monocytes % (Manual) Eosinophils % (Manual) Basophils % (Manual) Nucleated RBC % Seg Neutrophils # Seg Neutrophils # Man Lymphocytes # (Manual) Monocytes # (Manual) Eosinophils # (Manual) Basophils # (Manual) PT INR Fibrinogen dRVVT Confirm Interp Factor V Activity POC ABG pH POC ABG pCO2 POC ABG pO2 ABG pO2 ABG HCO3 ABG Base Excess ABG Hemoglobin Oxyhemoglobin Sodium 133 L Potassium 3.2 L Chloride 93.2 L Carbon Dioxide 19 L BUN 36 H Creatinine 3.2 H Glucose 104 H POC Glucose 167 H 146 H Lactic Acid Calcium 6.4 L Ionized Calcium Phosphorus Magnesium 1.60 L Direct Bilirubin AST ALT Alkaline Phosphatase Lactate Dehydrogenase Troponin T C-Reactive Protein Total Protein Albumin Prealbumin Triglycerides Cholesterol LDL Cholesterol Direct HDL Cholesterol 25-OH Vitamin D Total PTH Intact Urine pH Urine WBC (Auto) Urine Creatinine Urine Total Protein Fluid Total Protein Vancomycin Trough Rheumatoid Factor Complement C4 Miscellaneous Test Crossmatch 09/30/16 09/30/16 09/30/16 11:26 13:39 18:38 WBC RBC Hgb Hct MCV MCH MCHC RDW Plt Count Lymph % (Auto) [place] % (Auto) Lymph # [place] # Baso # Seg Neutrophils % Seg Neuts % (Manual) Lymphocytes % (Manual) Monocytes % (Manual) Eosinophils % (Manual) Basophils % (Manual) Nucleated RBC % Seg Neutrophils # Seg Neutrophils # Man Lymphocytes # (Manual) Monocytes # (Manual) Eosinophils # (Manual) Basophils # (Manual) PT INR Fibrinogen dRVVT Confirm Interp Factor V Activity POC ABG pH 7.479 H POC ABG pCO2 29.8 L POC ABG pO2 117 H ABG pO2 ABG HCO3 ABG Base Excess ABG Hemoglobin Oxyhemoglobin Sodium Potassium Chloride Carbon Dioxide BUN Creatinine Glucose POC Glucose 140 H 122 H Lactic Acid Calcium Ionized Calcium Phosphorus Magnesium Direct Bilirubin AST ALT Alkaline Phosphatase Lactate Dehydrogenase Troponin T C-Reactive Protein Total Protein Albumin Prealbumin Triglycerides Cholesterol LDL Cholesterol Direct HDL Cholesterol 25-OH Vitamin D Total PTH Intact Urine pH Urine WBC (Auto) Urine Creatinine Urine Total Protein Fluid Total Protein Vancomycin Trough Rheumatoid Factor Complement C4 Miscellaneous Test Crossmatch 10/01/16 10/01/16 10/01/16 06:00 06:00 12:37 WBC 12.6 H RBC 2.75 L Hgb 7.3 L Hct 23.3 L MCV MCH 27 L MCHC RDW 20.6 H Plt Count 72 L Lymph % (Auto) [place] % (Auto) Lymph # [place] # Baso # Seg Neutrophils % Seg Neuts % (Manual) 31.0 L Lymphocytes % (Manual) 8.0 L Monocytes % (Manual) Eosinophils % (Manual) Basophils % (Manual) Nucleated RBC % 3.0 H Seg Neutrophils # Seg Neutrophils # Man Lymphocytes # (Manual) 1.0 L Monocytes # (Manual) Eosinophils # (Manual) Basophils # (Manual) PT INR Fibrinogen dRVVT Confirm Interp Factor V Activity POC ABG pH POC ABG pCO2 POC ABG pO2 ABG pO2 ABG HCO3 ABG Base Excess ABG Hemoglobin Oxyhemoglobin Sodium 127 L Potassium Chloride 86.8 L Carbon Dioxide 20 L BUN 42 H Creatinine 3.5 H Glucose POC Glucose 65 L Lactic Acid Calcium 7.0 L Ionized Calcium Phosphorus Magnesium Direct Bilirubin AST ALT Alkaline Phosphatase Lactate Dehydrogenase Troponin T C-Reactive Protein Total Protein Albumin Prealbumin Triglycerides Cholesterol LDL Cholesterol Direct HDL Cholesterol 25-OH Vitamin D Total PTH Intact Urine pH Urine WBC (Auto) Urine Creatinine Urine Total Protein Fluid Total Protein Vancomycin Trough Rheumatoid Factor Complement C4 Miscellaneous Test Crossmatch 10/01/16 10/01/16 10/02/16 17:39 23:32 00:59 WBC RBC Hgb Hct MCV MCH MCHC RDW Plt Count Lymph % (Auto) [place] % (Auto) Lymph # [place] # Baso # Seg Neutrophils % Seg Neuts % (Manual) Lymphocytes % (Manual) Monocytes % (Manual) Eosinophils % (Manual) Basophils % (Manual) Nucleated RBC % Seg Neutrophils # Seg Neutrophils # Man Lymphocytes # (Manual) Monocytes # (Manual) Eosinophils # (Manual) Basophils # (Manual) PT INR Fibrinogen dRVVT Confirm Interp Factor V Activity POC ABG pH POC ABG pCO2 POC ABG pO2 ABG pO2 ABG HCO3 ABG Base Excess ABG Hemoglobin Oxyhemoglobin Sodium Potassium Chloride Carbon Dioxide BUN Creatinine Glucose POC Glucose 107 H 52 L 145 H Lactic Acid Calcium Ionized Calcium Phosphorus Magnesium Direct Bilirubin AST ALT Alkaline Phosphatase Lactate Dehydrogenase Troponin T C-Reactive Protein Total Protein Albumin Prealbumin Triglycerides Cholesterol LDL Cholesterol Direct HDL Cholesterol 25-OH Vitamin D Total PTH Intact Urine pH Urine WBC (Auto) Urine Creatinine Urine Total Protein Fluid Total Protein Vancomycin Trough Rheumatoid Factor Complement C4 Miscellaneous Test Crossmatch 10/02/16 10/02/16 10/02/16 10:30 10:50 10:50 WBC 14.7 H RBC 2.76 L Hgb 7.4 L Hct 23.6 L MCV MCH 27 L MCHC RDW 20.2 H Plt Count 79 L Lymph % (Auto) [place] % (Auto) Lymph # [place] # Baso # Seg Neutrophils % Seg Neuts % (Manual) 86.0 H Lymphocytes % (Manual) 6.0 L Monocytes % (Manual) Eosinophils % (Manual) Basophils % (Manual) Nucleated RBC % Seg Neutrophils # Seg Neutrophils # Man 12.6 H Lymphocytes # (Manual) 0.9 L Monocytes # (Manual) Eosinophils # (Manual) Basophils # (Manual) PT INR Fibrinogen dRVVT Confirm Interp Factor V Activity POC ABG pH 7.486 H POC ABG pCO2 30.1 L POC ABG pO2 108 H ABG pO2 ABG HCO3 ABG Base Excess ABG Hemoglobin Oxyhemoglobin Sodium 131 L Potassium 3.4 L Chloride 89.9 L Carbon Dioxide BUN 26 H Creatinine 2.6 H Glucose POC Glucose Lactic Acid Calcium 7.0 L Ionized Calcium Phosphorus Magnesium Direct Bilirubin AST ALT Alkaline Phosphatase Lactate Dehydrogenase Troponin T C-Reactive Protein Total Protein Albumin Prealbumin Triglycerides Cholesterol LDL Cholesterol Direct HDL Cholesterol 25-OH Vitamin D Total PTH Intact Urine pH Urine WBC (Auto) Urine Creatinine Urine Total Protein Fluid Total Protein Vancomycin Trough Rheumatoid Factor Complement C4 Miscellaneous Test Crossmatch 10/02/16 10/03/16 10/03/16 23:45 00:45 05:10 WBC 12.9 H RBC 2.77 L Hgb 7.6 L Hct 23.7 L MCV MCH 27 L MCHC RDW 19.7 H Plt Count 89 L Lymph % (Auto) [place] % (Auto) Lymph # [place] # Baso # Seg Neutrophils % Seg Neuts % (Manual) Lymphocytes % (Manual) 8.0 L Monocytes % (Manual) Eosinophils % (Manual) Basophils % (Manual) Nucleated RBC % Seg Neutrophils # 11.9 H Seg Neutrophils # Man Lymphocytes # (Manual) 1.0 L Monocytes # (Manual) Eosinophils # (Manual) Basophils # (Manual) PT INR Fibrinogen dRVVT Confirm Interp Factor V Activity POC ABG pH POC ABG pCO2 POC ABG pO2 ABG pO2 ABG HCO3 ABG Base Excess ABG Hemoglobin Oxyhemoglobin Sodium Potassium Chloride Carbon Dioxide BUN Creatinine Glucose POC Glucose 55 L 199 H Lactic Acid Calcium Ionized Calcium Phosphorus Magnesium Direct Bilirubin AST ALT Alkaline Phosphatase Lactate Dehydrogenase Troponin T C-Reactive Protein Total Protein Albumin Prealbumin Triglycerides Cholesterol LDL Cholesterol Direct HDL Cholesterol 25-OH Vitamin D Total PTH Intact Urine pH Urine WBC (Auto) Urine Creatinine Urine Total Protein Fluid Total Protein Vancomycin Trough Rheumatoid Factor Complement C4 Miscellaneous Test Crossmatch 10/03/16 10/03/16 10/03/16 05:10 12:14 13:18 WBC RBC Hgb Hct MCV MCH MCHC RDW Plt Count Lymph % (Auto) [place] % (Auto) Lymph # [place] # Baso # Seg Neutrophils % Seg Neuts % (Manual) Lymphocytes % (Manual) Monocytes % (Manual) Eosinophils % (Manual) Basophils % (Manual) Nucleated RBC % Seg Neutrophils # Seg Neutrophils # Man Lymphocytes # (Manual) Monocytes # (Manual) Eosinophils # (Manual) Basophils # (Manual) PT INR Fibrinogen dRVVT Confirm Interp Factor V Activity POC ABG pH POC ABG pCO2 POC ABG pO2 ABG pO2 ABG HCO3 ABG Base Excess ABG Hemoglobin Oxyhemoglobin Sodium 129 L Potassium 3.3 L Chloride 88.8 L Carbon Dioxide 20 L BUN 29 H Creatinine 2.8 H Glucose POC Glucose 68 L 127 H Lactic Acid Calcium 7.2 L Ionized Calcium Phosphorus Magnesium Direct Bilirubin AST ALT Alkaline Phosphatase Lactate Dehydrogenase Troponin T C-Reactive Protein Total Protein Albumin Prealbumin Triglycerides Cholesterol LDL Cholesterol Direct HDL Cholesterol 25-OH Vitamin D Total PTH Intact Urine pH Urine WBC (Auto) Urine Creatinine Urine Total Protein Fluid Total Protein Vancomycin Trough Rheumatoid Factor Complement C4 Miscellaneous Test Crossmatch 10/03/16 10/03/16 10/03/16 14:42 18:21 19:09 WBC RBC Hgb Hct MCV MCH MCHC RDW Plt Count Lymph % (Auto) [place] % (Auto) Lymph # [place] # Baso # Seg Neutrophils % Seg Neuts % (Manual) Lymphocytes % (Manual) Monocytes % (Manual) Eosinophils % (Manual) Basophils % (Manual) Nucleated RBC % Seg Neutrophils # Seg Neutrophils # Man Lymphocytes # (Manual) Monocytes # (Manual) Eosinophils # (Manual) Basophils # (Manual) PT INR Fibrinogen dRVVT Confirm Interp Factor V Activity POC ABG pH 7.499 H POC ABG pCO2 28.4 L POC ABG pO2 44 L ABG pO2 ABG HCO3 ABG Base Excess ABG Hemoglobin Oxyhemoglobin Sodium Potassium Chloride Carbon Dioxide BUN Creatinine Glucose POC Glucose 64 L 205 H Lactic Acid Calcium Ionized Calcium Phosphorus Magnesium Direct Bilirubin AST ALT Alkaline Phosphatase Lactate Dehydrogenase Troponin T C-Reactive Protein Total Protein Albumin Prealbumin Triglycerides Cholesterol LDL Cholesterol Direct HDL Cholesterol 25-OH Vitamin D Total PTH Intact Urine pH Urine WBC (Auto) Urine Creatinine Urine Total Protein Fluid Total Protein Vancomycin Trough Rheumatoid Factor Complement C4 Miscellaneous Test Crossmatch 10/03/16 10/04/16 10/04/16 23:33 04:18 06:30 WBC RBC 2.54 L Hgb 7.1 L Hct 21.7 L MCV MCH MCHC RDW 19.5 H Plt Count 76 L Lymph % (Auto) [place] % (Auto) Lymph # [place] # Baso # Seg Neutrophils % Seg Neuts % (Manual) 88.0 H Lymphocytes % (Manual) 6.0 L Monocytes % (Manual) Eosinophils % (Manual) Basophils % (Manual) Nucleated RBC % Seg Neutrophils # Seg Neutrophils # Man 8.8 H Lymphocytes # (Manual) 0.6 L Monocytes # (Manual) Eosinophils # (Manual) Basophils # (Manual) PT INR Fibrinogen dRVVT Confirm Interp Factor V Activity POC ABG pH 7.461 H POC ABG pCO2 33.6 L POC ABG pO2 211 H ABG pO2 ABG HCO3 ABG Base Excess ABG Hemoglobin Oxyhemoglobin Sodium Potassium Chloride Carbon Dioxide BUN Creatinine Glucose POC Glucose 136 H Lactic Acid Calcium Ionized Calcium Phosphorus Magnesium Direct Bilirubin AST ALT Alkaline Phosphatase Lactate Dehydrogenase Troponin T C-Reactive Protein Total Protein Albumin Prealbumin Triglycerides Cholesterol LDL Cholesterol Direct HDL Cholesterol 25-OH Vitamin D Total PTH Intact Urine pH Urine WBC (Auto) Urine Creatinine Urine Total Protein Fluid Total Protein Vancomycin Trough Rheumatoid Factor Complement C4 Miscellaneous Test Crossmatch 10/04/16 10/04/16 10/04/16 06:30 11:45 17:54 WBC RBC Hgb Hct MCV MCH MCHC RDW Plt Count Lymph % (Auto) [place] % (Auto) Lymph # [place] # Baso # Seg Neutrophils % Seg Neuts % (Manual) Lymphocytes % (Manual) Monocytes % (Manual) Eosinophils % (Manual) Basophils % (Manual) Nucleated RBC % Seg Neutrophils # Seg Neutrophils # Man Lymphocytes # (Manual) Monocytes # (Manual) Eosinophils # (Manual) Basophils # (Manual) PT INR Fibrinogen dRVVT Confirm Interp Factor V Activity POC ABG pH POC ABG pCO2 POC ABG pO2 ABG pO2 ABG HCO3 ABG Base Excess ABG Hemoglobin Oxyhemoglobin Sodium 128 L Potassium Chloride 87.4 L Carbon Dioxide 20 L BUN 34 H Creatinine 2.9 H Glucose 127 H POC Glucose 158 H 160 H Lactic Acid Calcium 7.4 L Ionized Calcium Phosphorus Magnesium Direct Bilirubin AST ALT Alkaline Phosphatase Lactate Dehydrogenase Troponin T C-Reactive Protein Total Protein Albumin Prealbumin Triglycerides Cholesterol LDL Cholesterol Direct HDL Cholesterol 25-OH Vitamin D Total PTH Intact Urine pH Urine WBC (Auto) Urine Creatinine Urine Total Protein Fluid Total Protein Vancomycin Trough Rheumatoid Factor Complement C4 Miscellaneous Test Crossmatch 10/04/16 10/05/16 10/05/16 23:25 04:30 05:00 WBC RBC 2.64 L Hgb 7.5 L Hct 22.6 L MCV MCH MCHC RDW 19.3 H Plt Count 80 L Lymph % (Auto) [place] % (Auto) Lymph # [place] # Baso # Seg Neutrophils % Seg Neuts % (Manual) Lymphocytes % (Manual) 12.0 L Monocytes % (Manual) Eosinophils % (Manual) Basophils % (Manual) Nucleated RBC % Seg Neutrophils # Seg Neutrophils # Man Lymphocytes # (Manual) Monocytes # (Manual) Eosinophils # (Manual) Basophils # (Manual) PT INR Fibrinogen dRVVT Confirm Interp Factor V Activity POC ABG pH 7.475 H POC ABG pCO2 33.3 L POC ABG pO2 140 H ABG pO2 ABG HCO3 ABG Base Excess ABG Hemoglobin Oxyhemoglobin Sodium Potassium Chloride Carbon Dioxide BUN Creatinine Glucose POC Glucose 141 H Lactic Acid Calcium Ionized Calcium Phosphorus Magnesium Direct Bilirubin AST ALT Alkaline Phosphatase Lactate Dehydrogenase Troponin T C-Reactive Protein Total Protein Albumin Prealbumin Triglycerides Cholesterol LDL Cholesterol Direct HDL Cholesterol 25-OH Vitamin D Total PTH Intact Urine pH Urine WBC (Auto) Urine Creatinine Urine Total Protein Fluid Total Protein Vancomycin Trough Rheumatoid Factor Complement C4 Miscellaneous Test Crossmatch 10/05/16 10/05/16 10/05/16 05:00 05:09 12:58 WBC RBC Hgb Hct MCV MCH MCHC RDW Plt Count Lymph % (Auto) [place] % (Auto) Lymph # [place] # Baso # Seg Neutrophils % Seg Neuts % (Manual) Lymphocytes % (Manual) Monocytes % (Manual) Eosinophils % (Manual) Basophils % (Manual) Nucleated RBC % Seg Neutrophils # Seg Neutrophils # Man Lymphocytes # (Manual) Monocytes # (Manual) Eosinophils # (Manual) Basophils # (Manual) PT INR Fibrinogen dRVVT Confirm Interp Factor V Activity POC ABG pH POC ABG pCO2 POC ABG pO2 ABG pO2 ABG HCO3 ABG Base Excess ABG Hemoglobin Oxyhemoglobin Sodium 131 L Potassium Chloride 94.0 L Carbon Dioxide 20 L BUN 22 H Creatinine 2.0 H Glucose 123 H POC Glucose 166 H 179 H Lactic Acid Calcium 7.7 L Ionized Calcium Phosphorus 2.20 L D Magnesium Direct Bilirubin AST ALT Alkaline Phosphatase Lactate Dehydrogenase Troponin T C-Reactive Protein Total Protein Albumin Prealbumin Triglycerides Cholesterol LDL Cholesterol Direct HDL Cholesterol 25-OH Vitamin D Total PTH Intact Urine pH Urine WBC (Auto) Urine Creatinine Urine Total Protein Fluid Total Protein Vancomycin Trough Rheumatoid Factor Complement C4 Miscellaneous Test Crossmatch 10/05/16 10/05/16 10/05/16 15:50 18:53 23:12 WBC RBC Hgb Hct MCV MCH MCHC RDW Plt Count Lymph % (Auto) [place] % (Auto) Lymph # [place] # Baso # Seg Neutrophils % Seg Neuts % (Manual) Lymphocytes % (Manual) Monocytes % (Manual) Eosinophils % (Manual) Basophils % (Manual) Nucleated RBC % Seg Neutrophils # Seg Neutrophils # Man Lymphocytes # (Manual) Monocytes # (Manual) Eosinophils # (Manual) Basophils # (Manual) PT INR Fibrinogen dRVVT Confirm Interp Factor V Activity POC ABG pH POC ABG pCO2 POC ABG pO2 ABG pO2 ABG HCO3 ABG Base Excess ABG Hemoglobin Oxyhemoglobin Sodium Potassium Chloride Carbon Dioxide BUN Creatinine Glucose POC Glucose 150 H 164 H Lactic Acid Calcium Ionized Calcium Phosphorus Magnesium Direct Bilirubin AST ALT Alkaline Phosphatase Lactate Dehydrogenase Troponin T C-Reactive Protein Total Protein Albumin Prealbumin Triglycerides Cholesterol LDL Cholesterol Direct HDL Cholesterol 25-OH Vitamin D Total PTH Intact Urine pH Urine WBC (Auto) Urine Creatinine Urine Total Protein Fluid Total Protein Vancomycin Trough Rheumatoid Factor Complement C4 Miscellaneous Test Crossmatch See Detail 10/06/16 10/06/16 10/06/16 03:50 03:50 04:53 WBC RBC 3.00 L Hgb 8.6 L Hct 25.8 L MCV MCH MCHC RDW 17.9 H Plt Count 65 L Lymph % (Auto) [place] % (Auto) Lymph # [place] # Baso # Seg Neutrophils % Seg Neuts % (Manual) 30.0 L Lymphocytes % (Manual) 5.0 L Monocytes % (Manual) Eosinophils % (Manual) Basophils % (Manual) Nucleated RBC % Seg Neutrophils # Seg Neutrophils # Man Lymphocytes # (Manual) 0.4 L Monocytes # (Manual) Eosinophils # (Manual) Basophils # (Manual) PT INR Fibrinogen dRVVT Confirm Interp Factor V Activity POC ABG pH 7.310 L POC ABG pCO2 49.0 H POC ABG pO2 ABG pO2 ABG HCO3 ABG Base Excess ABG Hemoglobin Oxyhemoglobin Sodium 133 L Potassium Chloride 95.9 L Carbon Dioxide BUN 26 H Creatinine 2.0 H Glucose 116 H POC Glucose Lactic Acid Calcium 7.8 L Ionized Calcium Phosphorus Magnesium Direct Bilirubin AST ALT Alkaline Phosphatase Lactate Dehydrogenase Troponin T C-Reactive Protein Total Protein Albumin Prealbumin Triglycerides Cholesterol LDL Cholesterol Direct HDL Cholesterol 25-OH Vitamin D Total PTH Intact Urine pH Urine WBC (Auto) Urine Creatinine Urine Total Protein Fluid Total Protein Vancomycin Trough Rheumatoid Factor Complement C4 Miscellaneous Test Crossmatch 10/06/16 10/06/16 10/06/16 05:23 11:52 18:34 WBC RBC Hgb Hct MCV MCH MCHC RDW Plt Count Lymph % (Auto) [place] % (Auto) Lymph # [place] # Baso # Seg Neutrophils % Seg Neuts % (Manual) Lymphocytes % (Manual) Monocytes % (Manual) Eosinophils % (Manual) Basophils % (Manual) Nucleated RBC % Seg Neutrophils # Seg Neutrophils # Man Lymphocytes # (Manual) Monocytes # (Manual) Eosinophils # (Manual) Basophils # (Manual) PT INR Fibrinogen dRVVT Confirm Interp Factor V Activity POC ABG pH POC ABG pCO2 POC ABG pO2 ABG pO2 ABG HCO3 ABG Base Excess ABG Hemoglobin Oxyhemoglobin Sodium Potassium Chloride Carbon Dioxide BUN Creatinine Glucose POC Glucose 126 H 116 H 129 H Lactic Acid Calcium Ionized Calcium Phosphorus Magnesium Direct Bilirubin AST ALT Alkaline Phosphatase Lactate Dehydrogenase Troponin T C-Reactive Protein Total Protein Albumin Prealbumin Triglycerides Cholesterol LDL Cholesterol Direct HDL Cholesterol 25-OH Vitamin D Total PTH Intact Urine pH Urine WBC (Auto) Urine Creatinine Urine Total Protein Fluid Total Protein Vancomycin Trough Rheumatoid Factor Complement C4 Miscellaneous Test Crossmatch 10/07/16 10/07/16 10/07/16 03:45 05:00 10:00 WBC 17.0 H RBC 2.68 L Hgb 7.3 L Hct 25.3 L MCV MCH 27 L MCHC 29 L RDW 19.6 H Plt Count 74 L Lymph % (Auto) [place] % (Auto) Lymph # [place] # Baso # Seg Neutrophils % Seg Neuts % (Manual) Lymphocytes % (Manual) 12.0 L Monocytes % (Manual) Eosinophils % (Manual) Basophils % (Manual) Nucleated RBC % 4.0 H Seg Neutrophils # Seg Neutrophils # Man 10.7 H Lymphocytes # (Manual) Monocytes # (Manual) Eosinophils # (Manual) Basophils # (Manual) PT INR Fibrinogen dRVVT Confirm Interp Factor V Activity POC ABG pH POC ABG pCO2 POC ABG pO2 ABG pO2 ABG HCO3 ABG Base Excess ABG Hemoglobin Oxyhemoglobin Sodium 130 L Potassium 3.2 L Chloride 93.9 L Carbon Dioxide 20 L BUN 44 H Creatinine 2.7 H Glucose 129 H POC Glucose Lactic Acid Calcium 7.4 L Ionized Calcium Phosphorus Magnesium Direct Bilirubin AST ALT 6 L Alkaline Phosphatase 195 H Lactate Dehydrogenase Troponin T C-Reactive Protein Total Protein 4.9 L Albumin 1.0 L Prealbumin Triglycerides Cholesterol LDL Cholesterol Direct HDL Cholesterol 25-OH Vitamin D Total PTH Intact Urine pH Urine WBC (Auto) Urine Creatinine Urine Total Protein Fluid Total Protein Vancomycin Trough Rheumatoid Factor Complement C4 Miscellaneous Test Flexitest 1 H Crossmatch 10/07/16 10/07/16 10/07/16 10:00 11:24 18:10 WBC RBC Hgb Hct MCV MCH MCHC RDW Plt Count Lymph % (Auto) [place] % (Auto) Lymph # [place] # Baso # Seg Neutrophils % Seg Neuts % (Manual) Lymphocytes % (Manual) Monocytes % (Manual) Eosinophils % (Manual) Basophils % (Manual) Nucleated RBC % Seg Neutrophils # Seg Neutrophils # Man Lymphocytes # (Manual) Monocytes # (Manual) Eosinophils # (Manual) Basophils # (Manual) PT INR Fibrinogen dRVVT Confirm Interp Factor V Activity POC ABG pH POC ABG pCO2 POC ABG pO2 ABG pO2 ABG HCO3 ABG Base Excess ABG Hemoglobin Oxyhemoglobin Sodium Potassium Chloride Carbon Dioxide BUN Creatinine Glucose POC Glucose 116 H 130 H Lactic Acid Calcium Ionized Calcium Phosphorus Magnesium Direct Bilirubin AST ALT Alkaline Phosphatase Lactate Dehydrogenase Troponin T C-Reactive Protein 19.40 H Total Protein Albumin Prealbumin Triglycerides Cholesterol LDL Cholesterol Direct HDL Cholesterol 25-OH Vitamin D Total PTH Intact Urine pH Urine WBC (Auto) Urine Creatinine Urine Total Protein Fluid Total Protein Vancomycin Trough Rheumatoid Factor Complement C4 Miscellaneous Test Crossmatch 10/07/16 10/08/16 10/08/16 18:30 00:00 04:00 WBC RBC Hgb Hct MCV MCH MCHC RDW Plt Count Lymph % (Auto) [place] % (Auto) Lymph # [place] # Baso # Seg Neutrophils % Seg Neuts % (Manual) Lymphocytes % (Manual) Monocytes % (Manual) Eosinophils % (Manual) Basophils % (Manual) Nucleated RBC % Seg Neutrophils # Seg Neutrophils # Man Lymphocytes # (Manual) Monocytes # (Manual) Eosinophils # (Manual) Basophils # (Manual) PT INR Fibrinogen dRVVT Confirm Interp Factor V Activity POC ABG pH POC ABG pCO2 POC ABG pO2 ABG pO2 ABG HCO3 ABG Base Excess ABG Hemoglobin Oxyhemoglobin Sodium 132 L Potassium 3.3 L Chloride 93.6 L Carbon Dioxide 17 L BUN 59 H Creatinine 2.7 H Glucose 121 H POC Glucose 122 H Lactic Acid Calcium 7.6 L Ionized Calcium Phosphorus Magnesium Direct Bilirubin AST ALT Alkaline Phosphatase Lactate Dehydrogenase Troponin T C-Reactive Protein Total Protein Albumin Prealbumin Triglycerides Cholesterol LDL Cholesterol Direct HDL Cholesterol 25-OH Vitamin D Total PTH Intact Urine pH Urine WBC (Auto) > 182.0 H Urine Creatinine Urine Total Protein Fluid Total Protein Vancomycin Trough Rheumatoid Factor Complement C4 Miscellaneous Test Crossmatch 10/08/16 10/08/16 10/08/16 04:30 05:30 11:51 WBC RBC 5.15 H Hgb 14.4 H D Hct 44.5 H D MCV MCH MCHC RDW 19.5 H Plt Count 56 L Lymph % (Auto) [place] % (Auto) Lymph # [place] # Baso # Seg Neutrophils % Seg Neuts % (Manual) 24.0 L Lymphocytes % (Manual) 8.0 L Monocytes % (Manual) Eosinophils % (Manual) Basophils % (Manual) Nucleated RBC % 9.0 H Seg Neutrophils # Seg Neutrophils # Man Lymphocytes # (Manual) 0.7 L Monocytes # (Manual) Eosinophils # (Manual) Basophils # (Manual) PT INR Fibrinogen dRVVT Confirm Interp Factor V Activity POC ABG pH POC ABG pCO2 POC ABG pO2 ABG pO2 ABG HCO3 ABG Base Excess ABG Hemoglobin Oxyhemoglobin Sodium Potassium Chloride Carbon Dioxide BUN Creatinine Glucose POC Glucose 125 H 150 H Lactic Acid Calcium Ionized Calcium Phosphorus Magnesium Direct Bilirubin AST ALT Alkaline Phosphatase Lactate Dehydrogenase Troponin T C-Reactive Protein Total Protein Albumin Prealbumin Triglycerides Cholesterol LDL Cholesterol Direct HDL Cholesterol 25-OH Vitamin D Total PTH Intact Urine pH Urine WBC (Auto) Urine Creatinine Urine Total Protein Fluid Total Protein Vancomycin Trough Rheumatoid Factor Complement C4 Miscellaneous Test Crossmatch 10/08/16 10/08/16 10/08/16 12:49 17:07 19:30 WBC RBC Hgb 7.1 L D Hct 22.4 L D MCV MCH MCHC RDW Plt Count Lymph % (Auto) [place] % (Auto) Lymph # [place] # Baso # Seg Neutrophils % Seg Neuts % (Manual) Lymphocytes % (Manual) Monocytes % (Manual) Eosinophils % (Manual) Basophils % (Manual) Nucleated RBC % Seg Neutrophils # Seg Neutrophils # Man Lymphocytes # (Manual) Monocytes # (Manual) Eosinophils # (Manual) Basophils # (Manual) PT INR Fibrinogen dRVVT Confirm Interp Factor V Activity POC ABG pH POC ABG pCO2 28.2 L POC ABG pO2 111 H ABG pO2 ABG HCO3 ABG Base Excess ABG Hemoglobin Oxyhemoglobin Sodium Potassium Chloride Carbon Dioxide BUN Creatinine Glucose POC Glucose 145 H Lactic Acid Calcium Ionized Calcium Phosphorus Magnesium Direct Bilirubin AST ALT Alkaline Phosphatase Lactate Dehydrogenase Troponin T C-Reactive Protein Total Protein Albumin Prealbumin Triglycerides Cholesterol LDL Cholesterol Direct HDL Cholesterol 25-OH Vitamin D Total PTH Intact Urine pH Urine WBC (Auto) Urine Creatinine Urine Total Protein Fluid Total Protein Vancomycin Trough Rheumatoid Factor Complement C4 Miscellaneous Test Crossmatch 10/08/16 10/09/16 10/09/16 19:30 03:45 03:45 WBC 12.6 H RBC 2.36 L Hgb 6.7 L Hct 21.1 L MCV MCH MCHC RDW 19.5 H Plt Count 75 L Lymph % (Auto) [place] % (Auto) Lymph # [place] # Baso # Seg Neutrophils % Seg Neuts % (Manual) Lymphocytes % (Manual) Monocytes % (Manual) 10.0 H Eosinophils % (Manual) Basophils % (Manual) Nucleated RBC % 3.0 H Seg Neutrophils # Seg Neutrophils # Man Lymphocytes # (Manual) Monocytes # (Manual) 1.3 H Eosinophils # (Manual) Basophils # (Manual) PT 18.0 H INR 1.41 H Fibrinogen dRVVT Confirm Interp Factor V Activity POC ABG pH POC ABG pCO2 POC ABG pO2 ABG pO2 ABG HCO3 ABG Base Excess ABG Hemoglobin Oxyhemoglobin Sodium 135 L Potassium Chloride Carbon Dioxide 17 L BUN 81 H Creatinine 3.2 H Glucose 109 H POC Glucose Lactic Acid Calcium 7.4 L Ionized Calcium Phosphorus 4.60 H D Magnesium Direct Bilirubin AST ALT Alkaline Phosphatase Lactate Dehydrogenase Troponin T C-Reactive Protein Total Protein Albumin Prealbumin Triglycerides Cholesterol LDL Cholesterol Direct HDL Cholesterol 25-OH Vitamin D Total PTH Intact Urine pH Urine WBC (Auto) Urine Creatinine Urine Total Protein Fluid Total Protein Vancomycin Trough Rheumatoid Factor Complement C4 Miscellaneous Test Crossmatch 10/09/16 10/09/16 10/09/16 03:45 05:14 07:20 WBC RBC Hgb Hct MCV MCH MCHC RDW Plt Count Lymph % (Auto) [place] % (Auto) Lymph # [place] # Baso # Seg Neutrophils % Seg Neuts % (Manual) Lymphocytes % (Manual) Monocytes % (Manual) Eosinophils % (Manual) Basophils % (Manual) Nucleated RBC % Seg Neutrophils # Seg Neutrophils # Man Lymphocytes # (Manual) Monocytes # (Manual) Eosinophils # (Manual) Basophils # (Manual) PT 19.0 H INR 1.51 H Fibrinogen dRVVT Confirm Interp Factor V Activity POC ABG pH POC ABG pCO2 POC ABG pO2 ABG pO2 ABG HCO3 ABG Base Excess ABG Hemoglobin Oxyhemoglobin Sodium Potassium Chloride Carbon Dioxide BUN Creatinine Glucose POC Glucose 151 H Lactic Acid Calcium Ionized Calcium Phosphorus Magnesium Direct Bilirubin AST ALT Alkaline Phosphatase Lactate Dehydrogenase Troponin T C-Reactive Protein Total Protein Albumin Prealbumin Triglycerides Cholesterol LDL Cholesterol Direct HDL Cholesterol 25-OH Vitamin D Total PTH Intact Urine pH Urine WBC (Auto) Urine Creatinine Urine Total Protein Fluid Total Protein Vancomycin Trough Rheumatoid Factor Complement C4 Miscellaneous Test Crossmatch See Detail 10/09/16 10/09/16 10/09/16 11:46 16:20 16:43 WBC RBC Hgb 7.2 L Hct 22.2 L MCV MCH MCHC RDW Plt Count Lymph % (Auto) [place] % (Auto) Lymph # [place] # Baso # Seg Neutrophils % Seg Neuts % (Manual) Lymphocytes % (Manual) Monocytes % (Manual) Eosinophils % (Manual) Basophils % (Manual) Nucleated RBC % Seg Neutrophils # Seg Neutrophils # Man Lymphocytes # (Manual) Monocytes # (Manual) Eosinophils # (Manual) Basophils # (Manual) PT INR Fibrinogen dRVVT Confirm Interp Factor V Activity POC ABG pH POC ABG pCO2 POC ABG pO2 ABG pO2 ABG HCO3 ABG Base Excess ABG Hemoglobin Oxyhemoglobin Sodium Potassium Chloride Carbon Dioxide BUN Creatinine Glucose POC Glucose 133 H 141 H Lactic Acid Calcium Ionized Calcium Phosphorus Magnesium Direct Bilirubin AST ALT Alkaline Phosphatase Lactate Dehydrogenase Troponin T C-Reactive Protein Total Protein Albumin Prealbumin Triglycerides Cholesterol LDL Cholesterol Direct HDL Cholesterol 25-OH Vitamin D Total PTH Intact Urine pH Urine WBC (Auto) Urine Creatinine Urine Total Protein Fluid Total Protein Vancomycin Trough Rheumatoid Factor Complement C4 Miscellaneous Test Crossmatch 10/10/16 10/10/16 10/10/16 05:00 05:00 11:19 WBC 18.5 H RBC 2.19 L Hgb 6.4 L Hct 19.6 L* MCV MCH MCHC RDW 19.3 H Plt Count 93 L Lymph % (Auto) [place] % (Auto) Lymph # [place] # Baso # Seg Neutrophils % Seg Neuts % (Manual) Lymphocytes % (Manual) 10.0 L Monocytes % (Manual) Eosinophils % (Manual) Basophils % (Manual) Nucleated RBC % 4.0 H Seg Neutrophils # Seg Neutrophils # Man 11.3 H Lymphocytes # (Manual) Monocytes # (Manual) Eosinophils # (Manual) Basophils # (Manual) PT INR Fibrinogen dRVVT Confirm Interp Factor V Activity POC ABG pH POC ABG pCO2 POC ABG pO2 ABG pO2 ABG HCO3 ABG Base Excess ABG Hemoglobin Oxyhemoglobin Sodium Potassium 5.7 H D Chloride Carbon Dioxide 16 L BUN 94 H Creatinine 3.1 H Glucose 131 H POC Glucose 153 H Lactic Acid Calcium 8.2 L Ionized Calcium Phosphorus 5.10 H Magnesium 2.40 H Direct Bilirubin 0.3 H AST ALT < 5 L Alkaline Phosphatase 319 H Lactate Dehydrogenase Troponin T C-Reactive Protein Total Protein 5.1 L Albumin 1.0 L Prealbumin Triglycerides Cholesterol LDL Cholesterol Direct HDL Cholesterol 25-OH Vitamin D Total PTH Intact Urine pH Urine WBC (Auto) Urine Creatinine Urine Total Protein Fluid Total Protein Vancomycin Trough Rheumatoid Factor Complement C4 Miscellaneous Test Crossmatch 10/10/16 10/10/16 10/11/16 17:50 23:30 04:15 WBC RBC Hgb Hct MCV MCH MCHC RDW Plt Count Lymph % (Auto) [place] % (Auto) Lymph # [place] # Baso # Seg Neutrophils % Seg Neuts % (Manual) Lymphocytes % (Manual) Monocytes % (Manual) Eosinophils % (Manual) Basophils % (Manual) Nucleated RBC % Seg Neutrophils # Seg Neutrophils # Man Lymphocytes # (Manual) Monocytes # (Manual) Eosinophils # (Manual) Basophils # (Manual) PT INR Fibrinogen dRVVT Confirm Interp Factor V Activity POC ABG pH POC ABG pCO2 POC ABG pO2 ABG pO2 ABG HCO3 ABG Base Excess ABG Hemoglobin Oxyhemoglobin Sodium Potassium Chloride 96.4 L Carbon Dioxide 21 L BUN 57 H Creatinine 2.1 H Glucose 151 H POC Glucose 146 H 141 H Lactic Acid Calcium 8.3 L Ionized Calcium Phosphorus Magnesium Direct Bilirubin AST ALT Alkaline Phosphatase Lactate Dehydrogenase Troponin T C-Reactive Protein Total Protein Albumin Prealbumin Triglycerides Cholesterol LDL Cholesterol Direct HDL Cholesterol 25-OH Vitamin D Total PTH Intact Urine pH Urine WBC (Auto) Urine Creatinine Urine Total Protein Fluid Total Protein Vancomycin Trough Rheumatoid Factor Complement C4 Miscellaneous Test Crossmatch 10/11/16 10/11/16 10/11/16 04:15 04:15 05:30 WBC 28.3 H RBC 3.12 L Hgb 9.3 L Hct 28.7 L D MCV MCH MCHC RDW 17.7 H Plt Count 128 L Lymph % (Auto) [place] % (Auto) Lymph # [place] # Baso # Seg Neutrophils % Seg Neuts % (Manual) Lymphocytes % (Manual) Monocytes % (Manual) Eosinophils % (Manual) Basophils % (Manual) Nucleated RBC % Seg Neutrophils # Seg Neutrophils # Man Lymphocytes # (Manual) Monocytes # (Manual) Eosinophils # (Manual) Basophils # (Manual) PT INR Fibrinogen dRVVT Confirm Interp Factor V Activity POC ABG pH POC ABG pCO2 POC ABG pO2 ABG pO2 ABG HCO3 ABG Base Excess ABG Hemoglobin Oxyhemoglobin Sodium Potassium Chloride Carbon Dioxide BUN Creatinine Glucose POC Glucose 167 H Lactic Acid Calcium Ionized Calcium Phosphorus Magnesium Direct Bilirubin AST ALT Alkaline Phosphatase Lactate Dehydrogenase Troponin T C-Reactive Protein 15.80 H Total Protein Albumin Prealbumin Triglycerides Cholesterol LDL Cholesterol Direct HDL Cholesterol 25-OH Vitamin D Total PTH Intact Urine pH Urine WBC (Auto) Urine Creatinine Urine Total Protein Fluid Total Protein Vancomycin Trough Rheumatoid Factor Complement C4 Miscellaneous Test Crossmatch 10/11/16 10/11/16 10/11/16 11:40 15:49 23:57 WBC RBC Hgb Hct MCV MCH MCHC RDW Plt Count Lymph % (Auto) [place] % (Auto) Lymph # [place] # Baso # Seg Neutrophils % Seg Neuts % (Manual) Lymphocytes % (Manual) Monocytes % (Manual) Eosinophils % (Manual) Basophils % (Manual) Nucleated RBC % Seg Neutrophils # Seg Neutrophils # Man Lymphocytes # (Manual) Monocytes # (Manual) Eosinophils # (Manual) Basophils # (Manual) PT INR Fibrinogen dRVVT Confirm Interp Factor V Activity POC ABG pH POC ABG pCO2 POC ABG pO2 ABG pO2 ABG HCO3 ABG Base Excess ABG Hemoglobin Oxyhemoglobin Sodium Potassium Chloride Carbon Dioxide BUN Creatinine Glucose POC Glucose 139 H 168 H 161 H Lactic Acid Calcium Ionized Calcium Phosphorus Magnesium Direct Bilirubin AST ALT Alkaline Phosphatase Lactate Dehydrogenase Troponin T C-Reactive Protein Total Protein Albumin Prealbumin Triglycerides Cholesterol LDL Cholesterol Direct HDL Cholesterol 25-OH Vitamin D Total PTH Intact Urine pH Urine WBC (Auto) Urine Creatinine Urine Total Protein Fluid Total Protein Vancomycin Trough Rheumatoid Factor Complement C4 Miscellaneous Test Crossmatch 10/12/16 10/12/16 10/12/16 04:40 04:40 05:44 WBC 22.5 H RBC 2.88 L Hgb 8.8 L Hct 26.8 L MCV MCH MCHC RDW 17.8 H Plt Count Lymph % (Auto) [place] % (Auto) Lymph # [place] # Baso # Seg Neutrophils % Seg Neuts % (Manual) Lymphocytes % (Manual) Monocytes % (Manual) Eosinophils % (Manual) Basophils % (Manual) Nucleated RBC % Seg Neutrophils # Seg Neutrophils # Man Lymphocytes # (Manual) Monocytes # (Manual) Eosinophils # (Manual) Basophils # (Manual) PT INR Fibrinogen dRVVT Confirm Interp Factor V Activity POC ABG pH POC ABG pCO2 POC ABG pO2 ABG pO2 ABG HCO3 ABG Base Excess ABG Hemoglobin Oxyhemoglobin Sodium 134 L Potassium Chloride 93.0 L Carbon Dioxide BUN 74 H Creatinine 2.5 H Glucose 137 H POC Glucose 158 H Lactic Acid Calcium 8.2 L Ionized Calcium Phosphorus Magnesium Direct Bilirubin AST ALT Alkaline Phosphatase Lactate Dehydrogenase Troponin T C-Reactive Protein Total Protein Albumin Prealbumin Triglycerides Cholesterol LDL Cholesterol Direct HDL Cholesterol 25-OH Vitamin D Total PTH Intact Urine pH Urine WBC (Auto) Urine Creatinine Urine Total Protein Fluid Total Protein Vancomycin Trough Rheumatoid Factor Complement C4 Miscellaneous Test Crossmatch 10/12/16 10/12/16 10/12/16 12:27 18:18 23:46 WBC RBC Hgb Hct MCV MCH MCHC RDW Plt Count Lymph % (Auto) [place] % (Auto) Lymph # [place] # Baso # Seg Neutrophils % Seg Neuts % (Manual) Lymphocytes % (Manual) Monocytes % (Manual) Eosinophils % (Manual) Basophils % (Manual) Nucleated RBC % Seg Neutrophils # Seg Neutrophils # Man Lymphocytes # (Manual) Monocytes # (Manual) Eosinophils # (Manual) Basophils # (Manual) PT INR Fibrinogen dRVVT Confirm Interp Factor V Activity POC ABG pH POC ABG pCO2 POC ABG pO2 ABG pO2 ABG HCO3 ABG Base Excess ABG Hemoglobin Oxyhemoglobin Sodium Potassium Chloride Carbon Dioxide BUN Creatinine Glucose POC Glucose 153 H 140 H 150 H Lactic Acid Calcium Ionized Calcium Phosphorus Magnesium Direct Bilirubin AST ALT Alkaline Phosphatase Lactate Dehydrogenase Troponin T C-Reactive Protein Total Protein Albumin Prealbumin Triglycerides Cholesterol LDL Cholesterol Direct HDL Cholesterol 25-OH Vitamin D Total PTH Intact Urine pH Urine WBC (Auto) Urine Creatinine Urine Total Protein Fluid Total Protein Vancomycin Trough Rheumatoid Factor Complement C4 Miscellaneous Test Crossmatch 10/13/16 10/13/16 10/13/16 06:22 09:20 12:29 WBC RBC Hgb Hct MCV MCH MCHC RDW Plt Count Lymph % (Auto) [place] % (Auto) Lymph # [place] # Baso # Seg Neutrophils % Seg Neuts % (Manual) Lymphocytes % (Manual) Monocytes % (Manual) Eosinophils % (Manual) Basophils % (Manual) Nucleated RBC % Seg Neutrophils # Seg Neutrophils # Man Lymphocytes # (Manual) Monocytes # (Manual) Eosinophils # (Manual) Basophils # (Manual) PT INR Fibrinogen dRVVT Confirm Interp Factor V Activity POC ABG pH POC ABG pCO2 POC ABG pO2 ABG pO2 ABG HCO3 ABG Base Excess ABG Hemoglobin Oxyhemoglobin Sodium Potassium Chloride Carbon Dioxide BUN Creatinine Glucose POC Glucose 165 H 193 H Lactic Acid Calcium Ionized Calcium Phosphorus Magnesium Direct Bilirubin AST ALT Alkaline Phosphatase Lactate Dehydrogenase Troponin T C-Reactive Protein Total Protein Albumin Prealbumin Triglycerides Cholesterol LDL Cholesterol Direct HDL Cholesterol 25-OH Vitamin D Total PTH Intact Urine pH Urine WBC (Auto) Urine Creatinine Urine Total Protein Fluid Total Protein Vancomycin Trough Rheumatoid Factor Complement C4 Miscellaneous Test Flexitest 1 H Crossmatch 10/13/16 10/13/16 10/13/16 18:09 Unknown Unknown WBC 23.4 H RBC 2.83 L Hgb 8.7 L Hct 26.1 L MCV MCH MCHC RDW 18.1 H Plt Count Lymph % (Auto) [place] % (Auto) Lymph # [place] # Baso # Seg Neutrophils % Seg Neuts % (Manual) Lymphocytes % (Manual) Monocytes % (Manual) Eosinophils % (Manual) Basophils % (Manual) Nucleated RBC % Seg Neutrophils # Seg Neutrophils # Man Lymphocytes # (Manual) Monocytes # (Manual) Eosinophils # (Manual) Basophils # (Manual) PT INR Fibrinogen dRVVT Confirm Interp Factor V Activity POC ABG pH POC ABG pCO2 POC ABG pO2 ABG pO2 ABG HCO3 ABG Base Excess ABG Hemoglobin Oxyhemoglobin Sodium Potassium Chloride 95.8 L Carbon Dioxide BUN 82 H Creatinine 2.6 H Glucose 152 H POC Glucose 166 H Lactic Acid Calcium Ionized Calcium Phosphorus Magnesium Direct Bilirubin AST ALT Alkaline Phosphatase Lactate Dehydrogenase Troponin T C-Reactive Protein Total Protein Albumin Prealbumin Triglycerides Cholesterol LDL Cholesterol Direct HDL Cholesterol 25-OH Vitamin D Total PTH Intact Urine pH Urine WBC (Auto) Urine Creatinine Urine Total Protein Fluid Total Protein Vancomycin Trough Rheumatoid Factor Complement C4 Miscellaneous Test Crossmatch 10/14/16 10/14/16 10/14/16 05:38 06:35 08:10 WBC 20.7 H RBC 2.81 L Hgb 8.4 L Hct 27.2 L MCV MCH MCHC RDW 19.4 H Plt Count Lymph % (Auto) [place] % (Auto) Lymph # [place] # Baso # Seg Neutrophils % Seg Neuts % (Manual) Lymphocytes % (Manual) Monocytes % (Manual) Eosinophils % (Manual) Basophils % (Manual) Nucleated RBC % Seg Neutrophils # Seg Neutrophils # Man Lymphocytes # (Manual) Monocytes # (Manual) Eosinophils # (Manual) Basophils # (Manual) PT INR Fibrinogen dRVVT Confirm Interp Factor V Activity POC ABG pH POC ABG pCO2 POC ABG pO2 ABG pO2 ABG HCO3 ABG Base Excess ABG Hemoglobin Oxyhemoglobin Sodium Potassium Chloride Carbon Dioxide BUN 58 H Creatinine 1.9 H Glucose 169 H POC Glucose 195 H Lactic Acid Calcium Ionized Calcium Phosphorus Magnesium Direct Bilirubin AST ALT Alkaline Phosphatase Lactate Dehydrogenase Troponin T C-Reactive Protein Total Protein Albumin Prealbumin Triglycerides Cholesterol LDL Cholesterol Direct HDL Cholesterol 25-OH Vitamin D Total PTH Intact Urine pH Urine WBC (Auto) Urine Creatinine Urine Total Protein Fluid Total Protein Vancomycin Trough Rheumatoid Factor Complement C4 Miscellaneous Test Crossmatch 10/14/16 10/14/16 10/14/16 11:44 17:13 23:28 WBC RBC Hgb Hct MCV MCH MCHC RDW Plt Count Lymph % (Auto) [place] % (Auto) Lymph # [place] # Baso # Seg Neutrophils % Seg Neuts % (Manual) Lymphocytes % (Manual) Monocytes % (Manual) Eosinophils % (Manual) Basophils % (Manual) Nucleated RBC % Seg Neutrophils # Seg Neutrophils # Man Lymphocytes # (Manual) Monocytes # (Manual) Eosinophils # (Manual) Basophils # (Manual) PT INR Fibrinogen dRVVT Confirm Interp Factor V Activity POC ABG pH POC ABG pCO2 POC ABG pO2 ABG pO2 ABG HCO3 ABG Base Excess ABG Hemoglobin Oxyhemoglobin Sodium Potassium Chloride Carbon Dioxide BUN Creatinine Glucose POC Glucose 174 H 121 H 151 H Lactic Acid Calcium Ionized Calcium Phosphorus Magnesium Direct Bilirubin AST ALT Alkaline Phosphatase Lactate Dehydrogenase Troponin T C-Reactive Protein Total Protein Albumin Prealbumin Triglycerides Cholesterol LDL Cholesterol Direct HDL Cholesterol 25-OH Vitamin D Total PTH Intact Urine pH Urine WBC (Auto) Urine Creatinine Urine Total Protein Fluid Total Protein Vancomycin Trough Rheumatoid Factor Complement C4 Miscellaneous Test Crossmatch 10/15/16 10/15/16 10/15/16 05:06 12:26 17:48 WBC RBC Hgb Hct MCV MCH MCHC RDW Plt Count Lymph % (Auto) [place] % (Auto) Lymph # [place] # Baso # Seg Neutrophils % Seg Neuts % (Manual) Lymphocytes % (Manual) Monocytes % (Manual) Eosinophils % (Manual) Basophils % (Manual) Nucleated RBC % Seg Neutrophils # Seg Neutrophils # Man Lymphocytes # (Manual) Monocytes # (Manual) Eosinophils # (Manual) Basophils # (Manual) PT INR Fibrinogen dRVVT Confirm Interp Factor V Activity POC ABG pH POC ABG pCO2 POC ABG pO2 ABG pO2 ABG HCO3 ABG Base Excess ABG Hemoglobin Oxyhemoglobin Sodium Potassium Chloride Carbon Dioxide BUN Creatinine Glucose POC Glucose 151 H 149 H 153 H Lactic Acid Calcium Ionized Calcium Phosphorus Magnesium Direct Bilirubin AST ALT Alkaline Phosphatase Lactate Dehydrogenase Troponin T C-Reactive Protein Total Protein Albumin Prealbumin Triglycerides Cholesterol LDL Cholesterol Direct HDL Cholesterol 25-OH Vitamin D Total PTH Intact Urine pH Urine WBC (Auto) Urine Creatinine Urine Total Protein Fluid Total Protein Vancomycin Trough Rheumatoid Factor Complement C4 Miscellaneous Test Crossmatch 10/15/16 10/15/16 10/16/16 Unknown Unknown 00:02 WBC 23.4 H RBC 2.78 L Hgb 8.5 L Hct 25.7 L MCV MCH MCHC RDW 18.7 H Plt Count Lymph % (Auto) [place] % (Auto) Lymph # [place] # Baso # Seg Neutrophils % Seg Neuts % (Manual) Lymphocytes % (Manual) Monocytes % (Manual) Eosinophils % (Manual) Basophils % (Manual) Nucleated RBC % Seg Neutrophils # Seg Neutrophils # Man Lymphocytes # (Manual) Monocytes # (Manual) Eosinophils # (Manual) Basophils # (Manual) PT INR Fibrinogen dRVVT Confirm Interp Factor V Activity POC ABG pH POC ABG pCO2 POC ABG pO2 ABG pO2 ABG HCO3 ABG Base Excess ABG Hemoglobin Oxyhemoglobin Sodium Potassium Chloride Carbon Dioxide BUN 73 H Creatinine 2.3 H Glucose 120 H POC Glucose 137 H Lactic Acid Calcium Ionized Calcium Phosphorus Magnesium Direct Bilirubin AST ALT Alkaline Phosphatase Lactate Dehydrogenase Troponin T C-Reactive Protein Total Protein Albumin Prealbumin Triglycerides Cholesterol LDL Cholesterol Direct HDL Cholesterol 25-OH Vitamin D Total PTH Intact Urine pH Urine WBC (Auto) Urine Creatinine Urine Total Protein Fluid Total Protein Vancomycin Trough Rheumatoid Factor Complement C4 Miscellaneous Test Crossmatch 10/16/16 10/16/16 10/16/16 05:44 06:25 06:25 WBC 22.5 H RBC 2.76 L Hgb 8.3 L Hct 25.2 L MCV MCH MCHC RDW 18.3 H Plt Count Lymph % (Auto) [place] % (Auto) Lymph # [place] # Baso # Seg Neutrophils % Seg Neuts % (Manual) Lymphocytes % (Manual) Monocytes % (Manual) Eosinophils % (Manual) Basophils % (Manual) Nucleated RBC % Seg Neutrophils # Seg Neutrophils # Man Lymphocytes # (Manual) Monocytes # (Manual) Eosinophils # (Manual) Basophils # (Manual) PT INR Fibrinogen dRVVT Confirm Interp Factor V Activity POC ABG pH POC ABG pCO2 POC ABG pO2 ABG pO2 ABG HCO3 ABG Base Excess ABG Hemoglobin Oxyhemoglobin Sodium Potassium Chloride Carbon Dioxide BUN 92 H Creatinine 3.0 H Glucose 138 H POC Glucose 110 H Lactic Acid Calcium Ionized Calcium Phosphorus Magnesium Direct Bilirubin AST ALT Alkaline Phosphatase Lactate Dehydrogenase Troponin T C-Reactive Protein Total Protein Albumin Prealbumin Triglycerides Cholesterol LDL Cholesterol Direct HDL Cholesterol 25-OH Vitamin D Total PTH Intact Urine pH Urine WBC (Auto) Urine Creatinine Urine Total Protein Fluid Total Protein Vancomycin Trough Rheumatoid Factor Complement C4 Miscellaneous Test Crossmatch 10/16/16 10/16/16 10/16/16 11:27 11:48 17:36 WBC RBC Hgb Hct MCV MCH MCHC RDW Plt Count Lymph % (Auto) [place] % (Auto) Lymph # [place] # Baso # Seg Neutrophils % Seg Neuts % (Manual) Lymphocytes % (Manual) Monocytes % (Manual) Eosinophils % (Manual) Basophils % (Manual) Nucleated RBC % Seg Neutrophils # Seg Neutrophils # Man Lymphocytes # (Manual) Monocytes # (Manual) Eosinophils # (Manual) Basophils # (Manual) PT INR Fibrinogen dRVVT Confirm Interp Factor V Activity POC ABG pH 7.582 H POC ABG pCO2 27.4 L POC ABG pO2 110 H ABG pO2 ABG HCO3 ABG Base Excess ABG Hemoglobin Oxyhemoglobin Sodium Potassium Chloride Carbon Dioxide BUN Creatinine Glucose POC Glucose 121 H 133 H Lactic Acid Calcium Ionized Calcium Phosphorus Magnesium Direct Bilirubin AST ALT Alkaline Phosphatase Lactate Dehydrogenase Troponin T C-Reactive Protein Total Protein Albumin Prealbumin Triglycerides Cholesterol LDL Cholesterol Direct HDL Cholesterol 25-OH Vitamin D Total PTH Intact Urine pH Urine WBC (Auto) Urine Creatinine Urine Total Protein Fluid Total Protein Vancomycin Trough Rheumatoid Factor Complement C4 Miscellaneous Test Crossmatch 10/16/16 10/17/16 10/17/16 20:48 04:24 04:24 WBC 21.4 H RBC 2.72 L Hgb 8.0 L Hct 25.2 L MCV MCH MCHC RDW 18.0 H Plt Count Lymph % (Auto) [place] % (Auto) Lymph # [place] # Baso # Seg Neutrophils % Seg Neuts % (Manual) Lymphocytes % (Manual) Monocytes % (Manual) Eosinophils % (Manual) Basophils % (Manual) Nucleated RBC % Seg Neutrophils # Seg Neutrophils # Man Lymphocytes # (Manual) Monocytes # (Manual) Eosinophils # (Manual) Basophils # (Manual) PT INR Fibrinogen dRVVT Confirm Interp Factor V Activity POC ABG pH 7.561 H POC ABG pCO2 24.4 L POC ABG pO2 77 L ABG pO2 ABG HCO3 ABG Base Excess ABG Hemoglobin Oxyhemoglobin Sodium 148 H Potassium Chloride Carbon Dioxide BUN 104 H Creatinine 3.0 H Glucose 149 H POC Glucose Lactic Acid Calcium Ionized Calcium Phosphorus Magnesium Direct Bilirubin AST ALT Alkaline Phosphatase 138 H Lactate Dehydrogenase Troponin T C-Reactive Protein Total Protein 6.2 L Albumin 1.5 L Prealbumin Triglycerides Cholesterol LDL Cholesterol Direct HDL Cholesterol 25-OH Vitamin D Total PTH Intact Urine pH Urine WBC (Auto) Urine Creatinine Urine Total Protein Fluid Total Protein Vancomycin Trough Rheumatoid Factor Complement C4 Miscellaneous Test Crossmatch 10/17/16 10/17/16 10/17/16 06:02 12:17 17:14 WBC RBC Hgb Hct MCV MCH MCHC RDW Plt Count Lymph % (Auto) [place] % (Auto) Lymph # [place] # Baso # Seg Neutrophils % Seg Neuts % (Manual) Lymphocytes % (Manual) Monocytes % (Manual) Eosinophils % (Manual) Basophils % (Manual) Nucleated RBC % Seg Neutrophils # Seg Neutrophils # Man Lymphocytes # (Manual) Monocytes # (Manual) Eosinophils # (Manual) Basophils # (Manual) PT INR Fibrinogen dRVVT Confirm Interp Factor V Activity POC ABG pH POC ABG pCO2 POC ABG pO2 ABG pO2 ABG HCO3 ABG Base Excess ABG Hemoglobin Oxyhemoglobin Sodium Potassium Chloride Carbon Dioxide BUN Creatinine Glucose POC Glucose 170 H 167 H 126 H Lactic Acid Calcium Ionized Calcium Phosphorus Magnesium Direct Bilirubin AST ALT Alkaline Phosphatase Lactate Dehydrogenase Troponin T C-Reactive Protein Total Protein Albumin Prealbumin Triglycerides Cholesterol LDL Cholesterol Direct HDL Cholesterol 25-OH Vitamin D Total PTH Intact Urine pH Urine WBC (Auto) Urine Creatinine Urine Total Protein Fluid Total Protein Vancomycin Trough Rheumatoid Factor Complement C4 Miscellaneous Test Crossmatch 10/17/16 10/18/16 10/18/16 23:17 04:00 04:00 WBC 20.7 H RBC 2.47 L Hgb 7.4 L Hct 22.9 L MCV MCH MCHC RDW 17.5 H Plt Count Lymph % (Auto) [place] % (Auto) Lymph # [place] # Baso # Seg Neutrophils % Seg Neuts % (Manual) Lymphocytes % (Manual) Monocytes % (Manual) Eosinophils % (Manual) Basophils % (Manual) Nucleated RBC % Seg Neutrophils # Seg Neutrophils # Man Lymphocytes # (Manual) Monocytes # (Manual) Eosinophils # (Manual) Basophils # (Manual) PT INR Fibrinogen dRVVT Confirm Interp Factor V Activity POC ABG pH POC ABG pCO2 POC ABG pO2 ABG pO2 ABG HCO3 ABG Base Excess ABG Hemoglobin Oxyhemoglobin Sodium 149 H Potassium Chloride 107.9 H Carbon Dioxide 20 L BUN 117 H Creatinine 3.2 H Glucose 119 H POC Glucose 121 H Lactic Acid Calcium Ionized Calcium Phosphorus Magnesium Direct Bilirubin AST ALT Alkaline Phosphatase Lactate Dehydrogenase Troponin T C-Reactive Protein Total Protein Albumin Prealbumin Triglycerides Cholesterol LDL Cholesterol Direct HDL Cholesterol 25-OH Vitamin D Total PTH Intact Urine pH Urine WBC (Auto) Urine Creatinine Urine Total Protein Fluid Total Protein Vancomycin Trough Rheumatoid Factor Complement C4 Miscellaneous Test Crossmatch 10/18/16 10/18/16 10/18/16 05:23 10:46 17:30 WBC RBC Hgb Hct MCV MCH MCHC RDW Plt Count Lymph % (Auto) [place] % (Auto) Lymph # [place] # Baso # Seg Neutrophils % Seg Neuts % (Manual) Lymphocytes % (Manual) Monocytes % (Manual) Eosinophils % (Manual) Basophils % (Manual) Nucleated RBC % Seg Neutrophils # Seg Neutrophils # Man Lymphocytes # (Manual) Monocytes # (Manual) Eosinophils # (Manual) Basophils # (Manual) PT INR Fibrinogen dRVVT Confirm Interp Factor V Activity POC ABG pH POC ABG pCO2 POC ABG pO2 ABG pO2 ABG HCO3 ABG Base Excess ABG Hemoglobin Oxyhemoglobin Sodium Potassium Chloride Carbon Dioxide BUN Creatinine Glucose POC Glucose 119 H 155 H 124 H Lactic Acid Calcium Ionized Calcium Phosphorus Magnesium Direct Bilirubin AST ALT Alkaline Phosphatase Lactate Dehydrogenase Troponin T C-Reactive Protein Total Protein Albumin Prealbumin Triglycerides Cholesterol LDL Cholesterol Direct HDL Cholesterol 25-OH Vitamin D Total PTH Intact Urine pH Urine WBC (Auto) Urine Creatinine Urine Total Protein Fluid Total Protein Vancomycin Trough Rheumatoid Factor Complement C4 Miscellaneous Test Crossmatch 10/19/16 10/19/16 10/19/16 04:00 04:00 05:25 WBC 17.4 H RBC 2.54 L Hgb 7.7 L Hct 23.6 L MCV MCH MCHC RDW 17.3 H Plt Count Lymph % (Auto) [place] % (Auto) Lymph # [place] # Baso # Seg Neutrophils % Seg Neuts % (Manual) Lymphocytes % (Manual) Monocytes % (Manual) Eosinophils % (Manual) Basophils % (Manual) Nucleated RBC % Seg Neutrophils # Seg Neutrophils # Man Lymphocytes # (Manual) Monocytes # (Manual) Eosinophils # (Manual) Basophils # (Manual) PT INR Fibrinogen dRVVT Confirm Interp Factor V Activity POC ABG pH POC ABG pCO2 POC ABG pO2 ABG pO2 ABG HCO3 ABG Base Excess ABG Hemoglobin Oxyhemoglobin Sodium Potassium Chloride Carbon Dioxide BUN 72 H Creatinine 2.1 H Glucose 116 H POC Glucose 119 H Lactic Acid Calcium Ionized Calcium Phosphorus Magnesium Direct Bilirubin AST ALT Alkaline Phosphatase Lactate Dehydrogenase Troponin T C-Reactive Protein Total Protein Albumin Prealbumin Triglycerides Cholesterol LDL Cholesterol Direct HDL Cholesterol 25-OH Vitamin D Total PTH Intact Urine pH Urine WBC (Auto) Urine Creatinine Urine Total Protein Fluid Total Protein Vancomycin Trough Rheumatoid Factor Complement C4 Miscellaneous Test Crossmatch 10/19/16 10/19/16 10/20/16 11:46 23:59 06:00 WBC RBC Hgb Hct MCV MCH MCHC RDW Plt Count Lymph % (Auto) [place] % (Auto) Lymph # [place] # Baso # Seg Neutrophils % Seg Neuts % (Manual) Lymphocytes % (Manual) Monocytes % (Manual) Eosinophils % (Manual) Basophils % (Manual) Nucleated RBC % Seg Neutrophils # Seg Neutrophils # Man Lymphocytes # (Manual) Monocytes # (Manual) Eosinophils # (Manual) Basophils # (Manual) PT INR Fibrinogen dRVVT Confirm Interp Factor V Activity POC ABG pH POC ABG pCO2 POC ABG pO2 ABG pO2 ABG HCO3 ABG Base Excess ABG Hemoglobin Oxyhemoglobin Sodium Potassium Chloride Carbon Dioxide 17 L BUN 94 H Creatinine 2.7 H Glucose POC Glucose 116 H 117 H Lactic Acid Calcium Ionized Calcium Phosphorus Magnesium Direct Bilirubin AST ALT Alkaline Phosphatase Lactate Dehydrogenase Troponin T C-Reactive Protein Total Protein Albumin Prealbumin Triglycerides Cholesterol LDL Cholesterol Direct HDL Cholesterol 25-OH Vitamin D Total PTH Intact Urine pH Urine WBC (Auto) Urine Creatinine Urine Total Protein Fluid Total Protein Vancomycin Trough Rheumatoid Factor Complement C4 Miscellaneous Test Crossmatch 10/20/16 10/20/16 10/20/16 06:00 11:49 16:00 WBC 19.7 H RBC 2.51 L Hgb 7.7 L Hct 23.5 L MCV MCH MCHC RDW 17.5 H Plt Count Lymph % (Auto) [place] % (Auto) Lymph # [place] # Baso # Seg Neutrophils % Seg Neuts % (Manual) Lymphocytes % (Manual) Monocytes % (Manual) Eosinophils % (Manual) Basophils % (Manual) Nucleated RBC % Seg Neutrophils # Seg Neutrophils # Man Lymphocytes # (Manual) Monocytes # (Manual) Eosinophils # (Manual) Basophils # (Manual) PT INR Fibrinogen dRVVT Confirm Interp Factor V Activity POC ABG pH POC ABG pCO2 POC ABG pO2 ABG pO2 ABG HCO3 ABG Base Excess ABG Hemoglobin Oxyhemoglobin Sodium Potassium Chloride Carbon Dioxide BUN Creatinine Glucose POC Glucose 117 H Lactic Acid Calcium Ionized Calcium Phosphorus Magnesium Direct Bilirubin AST ALT Alkaline Phosphatase Lactate Dehydrogenase Troponin T C-Reactive Protein Total Protein Albumin Prealbumin Triglycerides Cholesterol LDL Cholesterol Direct HDL Cholesterol 25-OH Vitamin D Total PTH Intact Urine pH Urine WBC (Auto) Urine Creatinine Urine Total Protein Fluid Total Protein Vancomycin Trough Rheumatoid Factor Complement C4 Miscellaneous Test Flexitest 1 H Crossmatch 10/20/16 10/20/16 10/21/16 18:36 23:39 04:00 WBC RBC Hgb Hct MCV MCH MCHC RDW Plt Count Lymph % (Auto) [place] % (Auto) Lymph # [place] # Baso # Seg Neutrophils % Seg Neuts % (Manual) Lymphocytes % (Manual) Monocytes % (Manual) Eosinophils % (Manual) Basophils % (Manual) Nucleated RBC % Seg Neutrophils # Seg Neutrophils # Man Lymphocytes # (Manual) Monocytes # (Manual) Eosinophils # (Manual) Basophils # (Manual) PT INR Fibrinogen dRVVT Confirm Interp Factor V Activity POC ABG pH POC ABG pCO2 POC ABG pO2 ABG pO2 ABG HCO3 ABG Base Excess ABG Hemoglobin Oxyhemoglobin Sodium Potassium 5.4 H D Chloride Carbon Dioxide 15 L BUN 110 H Creatinine 3.0 H Glucose POC Glucose 127 H 114 H Lactic Acid Calcium Ionized Calcium Phosphorus Magnesium Direct Bilirubin AST ALT Alkaline Phosphatase Lactate Dehydrogenase Troponin T C-Reactive Protein Total Protein Albumin Prealbumin Triglycerides Cholesterol LDL Cholesterol Direct HDL Cholesterol 25-OH Vitamin D Total PTH Intact Urine pH Urine WBC (Auto) Urine Creatinine Urine Total Protein Fluid Total Protein Vancomycin Trough Rheumatoid Factor Complement C4 Miscellaneous Test Crossmatch 10/21/16 10/21/16 10/22/16 05:54 23:46 05:18 WBC RBC Hgb Hct MCV MCH MCHC RDW Plt Count Lymph % (Auto) [place] % (Auto) Lymph # [place] # Baso # Seg Neutrophils % Seg Neuts % (Manual) Lymphocytes % (Manual) Monocytes % (Manual) Eosinophils % (Manual) Basophils % (Manual) Nucleated RBC % Seg Neutrophils # Seg Neutrophils # Man Lymphocytes # (Manual) Monocytes # (Manual) Eosinophils # (Manual) Basophils # (Manual) PT INR Fibrinogen dRVVT Confirm Interp Factor V Activity POC ABG pH POC ABG pCO2 POC ABG pO2 ABG pO2 ABG HCO3 ABG Base Excess ABG Hemoglobin Oxyhemoglobin Sodium Potassium Chloride Carbon Dioxide BUN Creatinine Glucose POC Glucose 119 H 108 H 109 H Lactic Acid Calcium Ionized Calcium Phosphorus Magnesium Direct Bilirubin AST ALT Alkaline Phosphatase Lactate Dehydrogenase Troponin T C-Reactive Protein Total Protein Albumin Prealbumin Triglycerides Cholesterol LDL Cholesterol Direct HDL Cholesterol 25-OH Vitamin D Total PTH Intact Urine pH Urine WBC (Auto) Urine Creatinine Urine Total Protein Fluid Total Protein Vancomycin Trough Rheumatoid Factor Complement C4 Miscellaneous Test Crossmatch 10/22/16 10/22/16 10/22/16 06:40 06:40 06:40 WBC 14.0 H RBC 2.03 L Hgb 7.0 L Hct 20.5 L MCV 98 H MCH 34 H MCHC 35 H RDW 17.8 H Plt Count Lymph % (Auto) [place] % (Auto) 9.9 H Lymph # [place] # 1.4 H Baso # 0.2 H Seg Neutrophils % 72.0 H Seg Neuts % (Manual) Lymphocytes % (Manual) Monocytes % (Manual) Eosinophils % (Manual) Basophils % (Manual) Nucleated RBC % Seg Neutrophils # 10.0 H Seg Neutrophils # Man Lymphocytes # (Manual) Monocytes # (Manual) Eosinophils # (Manual) Basophils # (Manual) PT INR Fibrinogen dRVVT Confirm Interp Factor V Activity POC ABG pH POC ABG pCO2 POC ABG pO2 ABG pO2 ABG HCO3 ABG Base Excess ABG Hemoglobin Oxyhemoglobin Sodium 130 L D Potassium Chloride 92.4 L Carbon Dioxide 20 L BUN 50 H Creatinine 1.6 H Glucose 589 H* POC Glucose Lactic Acid Calcium 7.8 L D Ionized Calcium Phosphorus Magnesium 1.60 L Direct Bilirubin AST ALT Alkaline Phosphatase Lactate Dehydrogenase Troponin T C-Reactive Protein Total Protein Albumin Prealbumin Triglycerides Cholesterol LDL Cholesterol Direct HDL Cholesterol 25-OH Vitamin D Total PTH Intact Urine pH Urine WBC (Auto) Urine Creatinine Urine Total Protein Fluid Total Protein Vancomycin Trough Rheumatoid Factor Complement C4 Miscellaneous Test Crossmatch 10/22/16 10/22/16 10/22/16 11:39 16:44 23:36 WBC RBC Hgb Hct MCV MCH MCHC RDW Plt Count Lymph % (Auto) [place] % (Auto) Lymph # [place] # Baso # Seg Neutrophils % Seg Neuts % (Manual) Lymphocytes % (Manual) Monocytes % (Manual) Eosinophils % (Manual) Basophils % (Manual) Nucleated RBC % Seg Neutrophils # Seg Neutrophils # Man Lymphocytes # (Manual) Monocytes # (Manual) Eosinophils # (Manual) Basophils # (Manual) PT INR Fibrinogen dRVVT Confirm Interp Factor V Activity POC ABG pH POC ABG pCO2 POC ABG pO2 ABG pO2 ABG HCO3 ABG Base Excess ABG Hemoglobin Oxyhemoglobin Sodium Potassium Chloride Carbon Dioxide BUN Creatinine Glucose POC Glucose 142 H 163 H 123 H Lactic Acid Calcium Ionized Calcium Phosphorus Magnesium Direct Bilirubin AST ALT Alkaline Phosphatase Lactate Dehydrogenase Troponin T C-Reactive Protein Total Protein Albumin Prealbumin Triglycerides Cholesterol LDL Cholesterol Direct HDL Cholesterol 25-OH Vitamin D Total PTH Intact Urine pH Urine WBC (Auto) Urine Creatinine Urine Total Protein Fluid Total Protein Vancomycin Trough Rheumatoid Factor Complement C4 Miscellaneous Test Crossmatch 10/23/16 10/23/16 10/23/16 04:58 06:00 12:12 WBC RBC Hgb Hct MCV MCH MCHC RDW Plt Count Lymph % (Auto) [place] % (Auto) Lymph # [place] # Baso # Seg Neutrophils % Seg Neuts % (Manual) Lymphocytes % (Manual) Monocytes % (Manual) Eosinophils % (Manual) Basophils % (Manual) Nucleated RBC % Seg Neutrophils # Seg Neutrophils # Man Lymphocytes # (Manual) Monocytes # (Manual) Eosinophils # (Manual) Basophils # (Manual) PT INR Fibrinogen dRVVT Confirm Interp Factor V Activity POC ABG pH POC ABG pCO2 POC ABG pO2 ABG pO2 ABG HCO3 ABG Base Excess ABG Hemoglobin Oxyhemoglobin Sodium 133 L Potassium 3.5 L Chloride 96.1 L Carbon Dioxide 18 L BUN 76 H Creatinine 2.1 H Glucose POC Glucose 133 H 138 H Lactic Acid Calcium 8.3 L Ionized Calcium Phosphorus Magnesium Direct Bilirubin AST ALT Alkaline Phosphatase Lactate Dehydrogenase Troponin T C-Reactive Protein Total Protein Albumin Prealbumin Triglycerides Cholesterol LDL Cholesterol Direct HDL Cholesterol 25-OH Vitamin D Total PTH Intact Urine pH Urine WBC (Auto) Urine Creatinine Urine Total Protein Fluid Total Protein Vancomycin Trough Rheumatoid Factor Complement C4 Miscellaneous Test Crossmatch 10/23/16 10/23/16 10/24/16 16:53 23:37 04:00 WBC RBC Hgb Hct MCV MCH MCHC RDW Plt Count Lymph % (Auto) [place] % (Auto) Lymph # [place] # Baso # Seg Neutrophils % Seg Neuts % (Manual) Lymphocytes % (Manual) Monocytes % (Manual) Eosinophils % (Manual) Basophils % (Manual) Nucleated RBC % Seg Neutrophils # Seg Neutrophils # Man Lymphocytes # (Manual) Monocytes # (Manual) Eosinophils # (Manual) Basophils # (Manual) PT INR Fibrinogen dRVVT Confirm Interp Factor V Activity POC ABG pH POC ABG pCO2 POC ABG pO2 ABG pO2 ABG HCO3 ABG Base Excess ABG Hemoglobin Oxyhemoglobin Sodium 131 L Potassium Chloride 94.5 L Carbon Dioxide 19 L BUN 97 H Creatinine 2.6 H Glucose 110 H POC Glucose 125 H 123 H Lactic Acid Calcium 8.3 L Ionized Calcium Phosphorus Magnesium Direct Bilirubin AST ALT Alkaline Phosphatase Lactate Dehydrogenase Troponin T C-Reactive Protein Total Protein Albumin Prealbumin Triglycerides Cholesterol LDL Cholesterol Direct HDL Cholesterol 25-OH Vitamin D Total PTH Intact Urine pH Urine WBC (Auto) Urine Creatinine Urine Total Protein Fluid Total Protein Vancomycin Trough Rheumatoid Factor Complement C4 Miscellaneous Test Crossmatch 10/24/16 10/24/16 10/24/16 07:49 11:39 17:52 WBC RBC Hgb 6.0 L Hct 19.7 L* MCV MCH MCHC RDW Plt Count Lymph % (Auto) [place] % (Auto) Lymph # [place] # Baso # Seg Neutrophils % Seg Neuts % (Manual) Lymphocytes % (Manual) Monocytes % (Manual) Eosinophils % (Manual) Basophils % (Manual) Nucleated RBC % Seg Neutrophils # Seg Neutrophils # Man Lymphocytes # (Manual) Monocytes # (Manual) Eosinophils # (Manual) Basophils # (Manual) PT INR Fibrinogen dRVVT Confirm Interp Factor V Activity POC ABG pH POC ABG pCO2 POC ABG pO2 ABG pO2 ABG HCO3 ABG Base Excess ABG Hemoglobin Oxyhemoglobin Sodium Potassium Chloride Carbon Dioxide BUN Creatinine Glucose POC Glucose 106 H 158 H Lactic Acid Calcium Ionized Calcium Phosphorus Magnesium Direct Bilirubin AST ALT Alkaline Phosphatase Lactate Dehydrogenase Troponin T C-Reactive Protein Total Protein Albumin Prealbumin Triglycerides Cholesterol LDL Cholesterol Direct HDL Cholesterol 25-OH Vitamin D Total PTH Intact Urine pH Urine WBC (Auto) Urine Creatinine Urine Total Protein Fluid Total Protein Vancomycin Trough Rheumatoid Factor Complement C4 Miscellaneous Test Crossmatch 10/24/16 10/24/16 10/24/16 20:00 22:27 Unknown WBC RBC Hgb 9.4 L D Hct 27.5 L D MCV MCH MCHC RDW Plt Count Lymph % (Auto) [place] % (Auto) Lymph # [place] # Baso # Seg Neutrophils % Seg Neuts % (Manual) Lymphocytes % (Manual) Monocytes % (Manual) Eosinophils % (Manual) Basophils % (Manual) Nucleated RBC % Seg Neutrophils # Seg Neutrophils # Man Lymphocytes # (Manual) Monocytes # (Manual) Eosinophils # (Manual) Basophils # (Manual) PT INR Fibrinogen dRVVT Confirm Interp Factor V Activity POC ABG pH POC ABG pCO2 POC ABG pO2 ABG pO2 ABG HCO3 ABG Base Excess ABG Hemoglobin Oxyhemoglobin Sodium Potassium Chloride Carbon Dioxide BUN Creatinine Glucose POC Glucose 125 H Lactic Acid Calcium Ionized Calcium Phosphorus Magnesium Direct Bilirubin AST ALT Alkaline Phosphatase Lactate Dehydrogenase Troponin T C-Reactive Protein Total Protein Albumin Prealbumin Triglycerides Cholesterol LDL Cholesterol Direct HDL Cholesterol 25-OH Vitamin D Total PTH Intact Urine pH Urine WBC (Auto) Urine Creatinine Urine Total Protein Fluid Total Protein Vancomycin Trough Rheumatoid Factor Complement C4 Miscellaneous Test Crossmatch See Detail 10/25/16 10/25/16 10/25/16 04:00 04:00 04:00 WBC 14.2 H RBC 2.98 L Hgb 9.0 L Hct 26.2 L MCV MCH MCHC RDW 16.6 H Plt Count Lymph % (Auto) [place] % (Auto) 10.7 H Lymph # [place] # 1.5 H Baso # Seg Neutrophils % 73.6 H Seg Neuts % (Manual) Lymphocytes % (Manual) Monocytes % (Manual) Eosinophils % (Manual) Basophils % (Manual) Nucleated RBC % Seg Neutrophils # 10.5 H Seg Neutrophils # Man Lymphocytes # (Manual) Monocytes # (Manual) Eosinophils # (Manual) Basophils # (Manual) PT INR Fibrinogen dRVVT Confirm Interp Factor V Activity POC ABG pH POC ABG pCO2 POC ABG pO2 ABG pO2 ABG HCO3 ABG Base Excess ABG Hemoglobin Oxyhemoglobin Sodium 132 L Potassium Chloride 94.7 L Carbon Dioxide BUN 51 H Creatinine 1.6 H Glucose 130 H POC Glucose Lactic Acid Calcium 8.3 L Ionized Calcium Phosphorus 1.60 L D Magnesium Direct Bilirubin AST ALT Alkaline Phosphatase Lactate Dehydrogenase Troponin T C-Reactive Protein Total Protein Albumin Prealbumin Triglycerides Cholesterol LDL Cholesterol Direct HDL Cholesterol 25-OH Vitamin D Total PTH Intact Urine pH Urine WBC (Auto) Urine Creatinine Urine Total Protein Fluid Total Protein Vancomycin Trough Rheumatoid Factor Complement C4 Miscellaneous Test Crossmatch 10/25/16 10/25/16 10/25/16 04:32 11:48 17:22 WBC RBC Hgb Hct MCV MCH MCHC RDW Plt Count Lymph % (Auto) [place] % (Auto) Lymph # [place] # Baso # Seg Neutrophils % Seg Neuts % (Manual) Lymphocytes % (Manual) Monocytes % (Manual) Eosinophils % (Manual) Basophils % (Manual) Nucleated RBC % Seg Neutrophils # Seg Neutrophils # Man Lymphocytes # (Manual) Monocytes # (Manual) Eosinophils # (Manual) Basophils # (Manual) PT INR Fibrinogen dRVVT Confirm Interp Factor V Activity POC ABG pH POC ABG pCO2 POC ABG pO2 ABG pO2 ABG HCO3 ABG Base Excess ABG Hemoglobin Oxyhemoglobin Sodium Potassium Chloride Carbon Dioxide BUN Creatinine Glucose POC Glucose 124 H 171 H 120 H Lactic Acid Calcium Ionized Calcium Phosphorus Magnesium Direct Bilirubin AST ALT Alkaline Phosphatase Lactate Dehydrogenase Troponin T C-Reactive Protein Total Protein Albumin Prealbumin Triglycerides Cholesterol LDL Cholesterol Direct HDL Cholesterol 25-OH Vitamin D Total PTH Intact Urine pH Urine WBC (Auto) Urine Creatinine Urine Total Protein Fluid Total Protein Vancomycin Trough Rheumatoid Factor Complement C4 Miscellaneous Test Crossmatch 10/26/16 10/26/16 10/26/16 04:54 07:06 07:06 WBC 16.9 H RBC 3.06 L Hgb 9.1 L Hct 26.9 L MCV MCH MCHC RDW 16.9 H Plt Count Lymph % (Auto) [place] % (Auto) Lymph # [place] # Baso # Seg Neutrophils % Seg Neuts % (Manual) 71.0 H Lymphocytes % (Manual) 5.0 L Monocytes % (Manual) 12.0 H Eosinophils % (Manual) Basophils % (Manual) Nucleated RBC % Seg Neutrophils # Seg Neutrophils # Man 12.0 H Lymphocytes # (Manual) 0.8 L Monocytes # (Manual) 2.0 H Eosinophils # (Manual) Basophils # (Manual) PT INR Fibrinogen dRVVT Confirm Interp Factor V Activity POC ABG pH POC ABG pCO2 POC ABG pO2 ABG pO2 ABG HCO3 ABG Base Excess ABG Hemoglobin Oxyhemoglobin Sodium 135 L Potassium Chloride 97.1 L Carbon Dioxide BUN 73 H Creatinine 2.2 H Glucose 117 H POC Glucose 123 H Lactic Acid Calcium Ionized Calcium Phosphorus 1.70 L Magnesium Direct Bilirubin AST ALT Alkaline Phosphatase Lactate Dehydrogenase Troponin T C-Reactive Protein Total Protein Albumin Prealbumin Triglycerides Cholesterol LDL Cholesterol Direct HDL Cholesterol 25-OH Vitamin D Total PTH Intact Urine pH Urine WBC (Auto) Urine Creatinine Urine Total Protein Fluid Total Protein Vancomycin Trough Rheumatoid Factor Complement C4 Miscellaneous Test Crossmatch 10/26/16 10/26/16 10/26/16 12:12 17:29 23:42 WBC RBC Hgb Hct MCV MCH MCHC RDW Plt Count Lymph % (Auto) [place] % (Auto) Lymph # [place] # Baso # Seg Neutrophils % Seg Neuts % (Manual) Lymphocytes % (Manual) Monocytes % (Manual) Eosinophils % (Manual) Basophils % (Manual) Nucleated RBC % Seg Neutrophils # Seg Neutrophils # Man Lymphocytes # (Manual) Monocytes # (Manual) Eosinophils # (Manual) Basophils # (Manual) PT INR Fibrinogen dRVVT Confirm Interp Factor V Activity POC ABG pH POC ABG pCO2 POC ABG pO2 ABG pO2 ABG HCO3 ABG Base Excess ABG Hemoglobin Oxyhemoglobin Sodium Potassium Chloride Carbon Dioxide BUN Creatinine Glucose POC Glucose 126 H 161 H 118 H Lactic Acid Calcium Ionized Calcium Phosphorus Magnesium Direct Bilirubin AST ALT Alkaline Phosphatase Lactate Dehydrogenase Troponin T C-Reactive Protein Total Protein Albumin Prealbumin Triglycerides Cholesterol LDL Cholesterol Direct HDL Cholesterol 25-OH Vitamin D Total PTH Intact Urine pH Urine WBC (Auto) Urine Creatinine Urine Total Protein Fluid Total Protein Vancomycin Trough Rheumatoid Factor Complement C4 Miscellaneous Test Crossmatch 10/27/16 10/27/16 10/27/16 05:03 06:30 06:30 WBC 13.9 H RBC 3.09 L Hgb 9.2 L Hct 27.5 L MCV MCH MCHC RDW 17.0 H Plt Count Lymph % (Auto) [place] % (Auto) Lymph # [place] # Baso # Seg Neutrophils % Seg Neuts % (Manual) 78.0 H Lymphocytes % (Manual) Monocytes % (Manual) Eosinophils % (Manual) Basophils % (Manual) Nucleated RBC % 2.0 H Seg Neutrophils # Seg Neutrophils # Man 10.8 H Lymphocytes # (Manual) Monocytes # (Manual) 1.0 H Eosinophils # (Manual) Basophils # (Manual) PT INR Fibrinogen dRVVT Confirm Interp Factor V Activity POC ABG pH POC ABG pCO2 POC ABG pO2 ABG pO2 ABG HCO3 ABG Base Excess ABG Hemoglobin Oxyhemoglobin Sodium Potassium Chloride Carbon Dioxide BUN 40 H Creatinine 1.5 H Glucose 135 H POC Glucose 107 H Lactic Acid Calcium 8.3 L Ionized Calcium Phosphorus 1.30 L D Magnesium Direct Bilirubin AST ALT Alkaline Phosphatase Lactate Dehydrogenase Troponin T C-Reactive Protein Total Protein Albumin Prealbumin Triglycerides Cholesterol LDL Cholesterol Direct HDL Cholesterol 25-OH Vitamin D Total PTH Intact Urine pH Urine WBC (Auto) Urine Creatinine Urine Total Protein Fluid Total Protein Vancomycin Trough Rheumatoid Factor Complement C4 Miscellaneous Test Crossmatch 10/27/16 10/27/16 10/27/16 13:27 18:07 23:40 WBC RBC Hgb Hct MCV MCH MCHC RDW Plt Count Lymph % (Auto) [place] % (Auto) Lymph # [place] # Baso # Seg Neutrophils % Seg Neuts % (Manual) Lymphocytes % (Manual) Monocytes % (Manual) Eosinophils % (Manual) Basophils % (Manual) Nucleated RBC % Seg Neutrophils # Seg Neutrophils # Man Lymphocytes # (Manual) Monocytes # (Manual) Eosinophils # (Manual) Basophils # (Manual) PT INR Fibrinogen dRVVT Confirm Interp Factor V Activity POC ABG pH POC ABG pCO2 POC ABG pO2 ABG pO2 ABG HCO3 ABG Base Excess ABG Hemoglobin Oxyhemoglobin Sodium Potassium Chloride Carbon Dioxide BUN Creatinine Glucose POC Glucose 117 H 121 H 118 H Lactic Acid Calcium Ionized Calcium Phosphorus Magnesium Direct Bilirubin AST ALT Alkaline Phosphatase Lactate Dehydrogenase Troponin T C-Reactive Protein Total Protein Albumin Prealbumin Triglycerides Cholesterol LDL Cholesterol Direct HDL Cholesterol 25-OH Vitamin D Total PTH Intact Urine pH Urine WBC (Auto) Urine Creatinine Urine Total Protein Fluid Total Protein Vancomycin Trough Rheumatoid Factor Complement C4 Miscellaneous Test Crossmatch 10/28/16 10/28/16 10/28/16 05:48 06:45 06:45 WBC 14.7 H RBC 3.05 L Hgb 9.0 L Hct 26.9 L MCV MCH MCHC RDW 16.8 H Plt Count Lymph % (Auto) 8.2 L [place] % (Auto) 8.4 H Lymph # [place] # 1.2 H Baso # Seg Neutrophils % 81.9 H Seg Neuts % (Manual) Lymphocytes % (Manual) Monocytes % (Manual) Eosinophils % (Manual) Basophils % (Manual) Nucleated RBC % Seg Neutrophils # 12.1 H Seg Neutrophils # Man Lymphocytes # (Manual) Monocytes # (Manual) Eosinophils # (Manual) Basophils # (Manual) PT INR Fibrinogen dRVVT Confirm Interp Factor V Activity POC ABG pH POC ABG pCO2 POC ABG pO2 ABG pO2 ABG HCO3 ABG Base Excess ABG Hemoglobin Oxyhemoglobin Sodium Potassium Chloride Carbon Dioxide BUN 60 H Creatinine 1.9 H Glucose 120 H POC Glucose 114 H Lactic Acid Calcium Ionized Calcium Phosphorus Magnesium Direct Bilirubin AST ALT Alkaline Phosphatase Lactate Dehydrogenase Troponin T C-Reactive Protein Total Protein Albumin Prealbumin Triglycerides Cholesterol LDL Cholesterol Direct HDL Cholesterol 25-OH Vitamin D Total PTH Intact Urine pH Urine WBC (Auto) Urine Creatinine Urine Total Protein Fluid Total Protein Vancomycin Trough Rheumatoid Factor Complement C4 Miscellaneous Test Crossmatch 10/28/16 10/28/16 10/29/16 17:08 23:50 05:10 WBC RBC Hgb Hct MCV MCH MCHC RDW Plt Count Lymph % (Auto) [place] % (Auto) Lymph # [place] # Baso # Seg Neutrophils % Seg Neuts % (Manual) Lymphocytes % (Manual) Monocytes % (Manual) Eosinophils % (Manual) Basophils % (Manual) Nucleated RBC % Seg Neutrophils # Seg Neutrophils # Man Lymphocytes # (Manual) Monocytes # (Manual) Eosinophils # (Manual) Basophils # (Manual) PT INR Fibrinogen dRVVT Confirm Interp Factor V Activity POC ABG pH POC ABG pCO2 POC ABG pO2 ABG pO2 ABG HCO3 ABG Base Excess ABG Hemoglobin Oxyhemoglobin Sodium Potassium Chloride Carbon Dioxide BUN Creatinine Glucose POC Glucose 109 H 110 H 124 H Lactic Acid Calcium Ionized Calcium Phosphorus Magnesium Direct Bilirubin AST ALT Alkaline Phosphatase Lactate Dehydrogenase Troponin T C-Reactive Protein Total Protein Albumin Prealbumin Triglycerides Cholesterol LDL Cholesterol Direct HDL Cholesterol 25-OH Vitamin D Total PTH Intact Urine pH Urine WBC (Auto) Urine Creatinine Urine Total Protein Fluid Total Protein Vancomycin Trough Rheumatoid Factor Complement C4 Miscellaneous Test Crossmatch 10/29/16 10/29/16 10/29/16 07:45 07:45 12:19 WBC 14.7 H RBC 3.15 L Hgb 9.3 L Hct 28.9 L MCV MCH MCHC RDW 17.0 H Plt Count Lymph % (Auto) 11.9 L [place] % (Auto) 8.6 H Lymph # [place] # 1.3 H Baso # Seg Neutrophils % 78.1 H Seg Neuts % (Manual) Lymphocytes % (Manual) Monocytes % (Manual) Eosinophils % (Manual) Basophils % (Manual) Nucleated RBC % Seg Neutrophils # 11.4 H Seg Neutrophils # Man Lymphocytes # (Manual) Monocytes # (Manual) Eosinophils # (Manual) Basophils # (Manual) PT INR Fibrinogen dRVVT Confirm Interp Factor V Activity POC ABG pH POC ABG pCO2 POC ABG pO2 ABG pO2 ABG HCO3 ABG Base Excess ABG Hemoglobin Oxyhemoglobin Sodium Potassium 5.1 H Chloride Carbon Dioxide 19 L BUN 78 H Creatinine 2.2 H Glucose 116 H POC Glucose 118 H Lactic Acid Calcium Ionized Calcium Phosphorus Magnesium Direct Bilirubin AST ALT Alkaline Phosphatase Lactate Dehydrogenase Troponin T C-Reactive Protein Total Protein Albumin Prealbumin Triglycerides Cholesterol LDL Cholesterol Direct HDL Cholesterol 25-OH Vitamin D Total PTH Intact Urine pH Urine WBC (Auto) Urine Creatinine Urine Total Protein Fluid Total Protein Vancomycin Trough Rheumatoid Factor Complement C4 Miscellaneous Test Crossmatch 10/29/16 10/30/16 10/30/16 17:49 01:52 03:28 WBC RBC Hgb Hct MCV MCH MCHC RDW Plt Count Lymph % (Auto) [place] % (Auto) Lymph # [place] # Baso # Seg Neutrophils % Seg Neuts % (Manual) Lymphocytes % (Manual) Monocytes % (Manual) Eosinophils % (Manual) Basophils % (Manual) Nucleated RBC % Seg Neutrophils # Seg Neutrophils # Man Lymphocytes # (Manual) Monocytes # (Manual) Eosinophils # (Manual) Basophils # (Manual) PT INR Fibrinogen dRVVT Confirm Interp Factor V Activity POC ABG pH POC ABG pCO2 POC ABG pO2 ABG pO2 ABG HCO3 ABG Base Excess ABG Hemoglobin Oxyhemoglobin Sodium Potassium 5.4 H Chloride 97.5 L Carbon Dioxide 19 L BUN 90 H Creatinine 2.5 H Glucose POC Glucose 120 H 129 H Lactic Acid Calcium Ionized Calcium Phosphorus 5.20 H Magnesium Direct Bilirubin AST ALT Alkaline Phosphatase Lactate Dehydrogenase Troponin T C-Reactive Protein Total Protein Albumin Prealbumin Triglycerides Cholesterol LDL Cholesterol Direct HDL Cholesterol 25-OH Vitamin D Total PTH Intact Urine pH Urine WBC (Auto) Urine Creatinine Urine Total Protein Fluid Total Protein Vancomycin Trough Rheumatoid Factor Complement C4 Miscellaneous Test Crossmatch 10/30/16 10/30/16 10/30/16 03:28 08:19 08:19 WBC 11.6 H 15.9 H RBC 2.75 L 2.82 L Hgb 7.9 L 8.3 L Hct 24.2 L 25.2 L MCV MCH MCHC RDW 16.7 H 17.2 H Plt Count Lymph % (Auto) [place] % (Auto) 9.8 H Lymph # [place] # 1.1 H Baso # Seg Neutrophils % 74.2 H Seg Neuts % (Manual) Lymphocytes % (Manual) Monocytes % (Manual) Eosinophils % (Manual) Basophils % (Manual) Nucleated RBC % Seg Neutrophils # 8.6 H Seg Neutrophils # Man Lymphocytes # (Manual) Monocytes # (Manual) Eosinophils # (Manual) Basophils # (Manual) PT INR Fibrinogen dRVVT Confirm Interp Factor V Activity POC ABG pH POC ABG pCO2 POC ABG pO2 ABG pO2 ABG HCO3 ABG Base Excess ABG Hemoglobin Oxyhemoglobin Sodium Potassium 5.3 H Chloride 97.4 L Carbon Dioxide 19 L BUN 93 H Creatinine 2.6 H Glucose POC Glucose Lactic Acid Calcium Ionized Calcium Phosphorus Magnesium Direct Bilirubin AST ALT Alkaline Phosphatase Lactate Dehydrogenase Troponin T C-Reactive Protein Total Protein Albumin Prealbumin Triglycerides Cholesterol LDL Cholesterol Direct HDL Cholesterol 25-OH Vitamin D Total PTH Intact Urine pH Urine WBC (Auto) Urine Creatinine Urine Total Protein Fluid Total Protein Vancomycin Trough Rheumatoid Factor Complement C4 Miscellaneous Test Crossmatch 10/30/16 10/30/16 10/31/16 17:11 23:56 00:40 WBC RBC Hgb Hct MCV MCH MCHC RDW Plt Count Lymph % (Auto) [place] % (Auto) Lymph # [place] # Baso # Seg Neutrophils % Seg Neuts % (Manual) Lymphocytes % (Manual) Monocytes % (Manual) Eosinophils % (Manual) Basophils % (Manual) Nucleated RBC % Seg Neutrophils # Seg Neutrophils # Man Lymphocytes # (Manual) Monocytes # (Manual) Eosinophils # (Manual) Basophils # (Manual) PT INR Fibrinogen dRVVT Confirm Interp Factor V Activity POC ABG pH POC ABG pCO2 POC ABG pO2 ABG pO2 ABG HCO3 ABG Base Excess ABG Hemoglobin Oxyhemoglobin Sodium Potassium Chloride Carbon Dioxide BUN Creatinine Glucose POC Glucose 106 H 117 H 120 H Lactic Acid Calcium Ionized Calcium Phosphorus Magnesium Direct Bilirubin AST ALT Alkaline Phosphatase Lactate Dehydrogenase Troponin T C-Reactive Protein Total Protein Albumin Prealbumin Triglycerides Cholesterol LDL Cholesterol Direct HDL Cholesterol 25-OH Vitamin D Total PTH Intact Urine pH Urine WBC (Auto) Urine Creatinine Urine Total Protein Fluid Total Protein Vancomycin Trough Rheumatoid Factor Complement C4 Miscellaneous Test Crossmatch 10/31/16 10/31/16 10/31/16 05:43 07:15 07:15 WBC 12.1 H RBC 2.63 L Hgb 7.7 L Hct 23.3 L MCV MCH MCHC RDW 16.7 H Plt Count Lymph % (Auto) 11.7 L [place] % (Auto) 7.7 H Lymph # [place] # 0.9 H Baso # Seg Neutrophils % 78.0 H Seg Neuts % (Manual) Lymphocytes % (Manual) Monocytes % (Manual) Eosinophils % (Manual) Basophils % (Manual) Nucleated RBC % Seg Neutrophils # 9.4 H Seg Neutrophils # Man Lymphocytes # (Manual) Monocytes # (Manual) Eosinophils # (Manual) Basophils # (Manual) PT INR Fibrinogen dRVVT Confirm Interp Factor V Activity POC ABG pH POC ABG pCO2 POC ABG pO2 ABG pO2 ABG HCO3 ABG Base Excess ABG Hemoglobin Oxyhemoglobin Sodium Potassium Chloride 96.4 L Carbon Dioxide 21 L BUN 99 H Creatinine 2.6 H Glucose 144 H POC Glucose 125 H Lactic Acid Calcium Ionized Calcium Phosphorus 4.80 H Magnesium Direct Bilirubin AST ALT Alkaline Phosphatase Lactate Dehydrogenase Troponin T C-Reactive Protein Total Protein Albumin Prealbumin Triglycerides Cholesterol LDL Cholesterol Direct HDL Cholesterol 25-OH Vitamin D Total PTH Intact Urine pH Urine WBC (Auto) Urine Creatinine Urine Total Protein Fluid Total Protein Vancomycin Trough Rheumatoid Factor Complement C4 Miscellaneous Test Crossmatch 10/31/16 10/31/16 11/01/16 11:46 18:34 00:20 WBC RBC Hgb Hct MCV MCH MCHC RDW Plt Count Lymph % (Auto) [place] % (Auto) Lymph # [place] # Baso # Seg Neutrophils % Seg Neuts % (Manual) Lymphocytes % (Manual) Monocytes % (Manual) Eosinophils % (Manual) Basophils % (Manual) Nucleated RBC % Seg Neutrophils # Seg Neutrophils # Man Lymphocytes # (Manual) Monocytes # (Manual) Eosinophils # (Manual) Basophils # (Manual) PT INR Fibrinogen dRVVT Confirm Interp Factor V Activity POC ABG pH POC ABG pCO2 POC ABG pO2 ABG pO2 ABG HCO3 ABG Base Excess ABG Hemoglobin Oxyhemoglobin Sodium Potassium Chloride Carbon Dioxide BUN Creatinine Glucose POC Glucose 159 H 140 H 132 H Lactic Acid Calcium Ionized Calcium Phosphorus Magnesium Direct Bilirubin AST ALT Alkaline Phosphatase Lactate Dehydrogenase Troponin T C-Reactive Protein Total Protein Albumin Prealbumin Triglycerides Cholesterol LDL Cholesterol Direct HDL Cholesterol 25-OH Vitamin D Total PTH Intact Urine pH Urine WBC (Auto) Urine Creatinine Urine Total Protein Fluid Total Protein Vancomycin Trough Rheumatoid Factor Complement C4 Miscellaneous Test Crossmatch 11/01/16 11/01/16 11/01/16 04:55 04:55 06:11 WBC 11.2 H RBC 2.68 L Hgb 7.5 L Hct 23.7 L MCV MCH MCHC RDW 16.1 H Plt Count Lymph % (Auto) [place] % (Auto) 9.8 H Lymph # [place] # 1.1 H Baso # Seg Neutrophils % 70.8 H Seg Neuts % (Manual) Lymphocytes % (Manual) Monocytes % (Manual) Eosinophils % (Manual) Basophils % (Manual) Nucleated RBC % Seg Neutrophils # 7.9 H Seg Neutrophils # Man Lymphocytes # (Manual) Monocytes # (Manual) Eosinophils # (Manual) Basophils # (Manual) PT INR Fibrinogen dRVVT Confirm Interp Factor V Activity POC ABG pH POC ABG pCO2 POC ABG pO2 ABG pO2 ABG HCO3 ABG Base Excess ABG Hemoglobin Oxyhemoglobin Sodium Potassium 3.3 L D Chloride Carbon Dioxide BUN 61 H Creatinine 1.9 H Glucose 114 H POC Glucose 115 H Lactic Acid Calcium Ionized Calcium Phosphorus 1.80 L D Magnesium Direct Bilirubin AST ALT Alkaline Phosphatase Lactate Dehydrogenase Troponin T C-Reactive Protein Total Protein Albumin Prealbumin Triglycerides Cholesterol LDL Cholesterol Direct HDL Cholesterol 25-OH Vitamin D Total PTH Intact Urine pH Urine WBC (Auto) Urine Creatinine Urine Total Protein Fluid Total Protein Vancomycin Trough Rheumatoid Factor Complement C4 Miscellaneous Test Crossmatch 11/01/16 11/01/16 11/01/16 12:29 18:23 23:58 WBC RBC Hgb Hct MCV MCH MCHC RDW Plt Count Lymph % (Auto) [place] % (Auto) Lymph # [place] # Baso # Seg Neutrophils % Seg Neuts % (Manual) Lymphocytes % (Manual) Monocytes % (Manual) Eosinophils % (Manual) Basophils % (Manual) Nucleated RBC % Seg Neutrophils # Seg Neutrophils # Man Lymphocytes # (Manual) Monocytes # (Manual) Eosinophils # (Manual) Basophils # (Manual) PT INR Fibrinogen dRVVT Confirm Interp Factor V Activity POC ABG pH POC ABG pCO2 POC ABG pO2 ABG pO2 ABG HCO3 ABG Base Excess ABG Hemoglobin Oxyhemoglobin Sodium Potassium Chloride Carbon Dioxide BUN Creatinine Glucose POC Glucose 142 H 143 H 128 H Lactic Acid Calcium Ionized Calcium Phosphorus Magnesium Direct Bilirubin AST ALT Alkaline Phosphatase Lactate Dehydrogenase Troponin T C-Reactive Protein Total Protein Albumin Prealbumin Triglycerides Cholesterol LDL Cholesterol Direct HDL Cholesterol 25-OH Vitamin D Total PTH Intact Urine pH Urine WBC (Auto) Urine Creatinine Urine Total Protein Fluid Total Protein Vancomycin Trough Rheumatoid Factor Complement C4 Miscellaneous Test Crossmatch 11/02/16 11/02/16 11/02/16 04:16 05:29 11:58 WBC RBC Hgb Hct MCV MCH MCHC RDW Plt Count Lymph % (Auto) [place] % (Auto) Lymph # [place] # Baso # Seg Neutrophils % Seg Neuts % (Manual) Lymphocytes % (Manual) Monocytes % (Manual) Eosinophils % (Manual) Basophils % (Manual) Nucleated RBC % Seg Neutrophils # Seg Neutrophils # Man Lymphocytes # (Manual) Monocytes # (Manual) Eosinophils # (Manual) Basophils # (Manual) PT INR Fibrinogen dRVVT Confirm Interp Factor V Activity POC ABG pH POC ABG pCO2 POC ABG pO2 ABG pO2 ABG HCO3 ABG Base Excess ABG Hemoglobin Oxyhemoglobin Sodium Potassium 3.1 L Chloride Carbon Dioxide BUN 73 H Creatinine 2.3 H Glucose 112 H POC Glucose 135 H 149 H Lactic Acid Calcium Ionized Calcium Phosphorus Magnesium Direct Bilirubin AST ALT Alkaline Phosphatase Lactate Dehydrogenase Troponin T C-Reactive Protein Total Protein Albumin Prealbumin Triglycerides Cholesterol LDL Cholesterol Direct HDL Cholesterol 25-OH Vitamin D Total PTH Intact Urine pH Urine WBC (Auto) Urine Creatinine Urine Total Protein Fluid Total Protein Vancomycin Trough Rheumatoid Factor Complement C4 Miscellaneous Test Crossmatch 11/02/16 11/02/16 11/03/16 17:42 22:54 06:00 WBC RBC Hgb Hct MCV MCH MCHC RDW Plt Count Lymph % (Auto) [place] % (Auto) Lymph # [place] # Baso # Seg Neutrophils % Seg Neuts % (Manual) Lymphocytes % (Manual) Monocytes % (Manual) Eosinophils % (Manual) Basophils % (Manual) Nucleated RBC % Seg Neutrophils # Seg Neutrophils # Man Lymphocytes # (Manual) Monocytes # (Manual) Eosinophils # (Manual) Basophils # (Manual) PT INR Fibrinogen dRVVT Confirm Interp Factor V Activity POC ABG pH POC ABG pCO2 POC ABG pO2 ABG pO2 ABG HCO3 ABG Base Excess ABG Hemoglobin Oxyhemoglobin Sodium Potassium Chloride 96.7 L Carbon Dioxide BUN 41 H Creatinine 1.5 H Glucose 145 H POC Glucose 182 H 115 H Lactic Acid Calcium Ionized Calcium Phosphorus 1.60 L D Magnesium 1.50 L Direct Bilirubin AST ALT Alkaline Phosphatase Lactate Dehydrogenase Troponin T C-Reactive Protein Total Protein Albumin Prealbumin Triglycerides Cholesterol LDL Cholesterol Direct HDL Cholesterol 25-OH Vitamin D Total PTH Intact Urine pH Urine WBC (Auto) Urine Creatinine Urine Total Protein Fluid Total Protein Vancomycin Trough Rheumatoid Factor Complement C4 Miscellaneous Test Crossmatch 11/03/16 11/03/16 11/03/16 11:53 17:45 23:37 WBC RBC Hgb Hct MCV MCH MCHC RDW Plt Count Lymph % (Auto) [place] % (Auto) Lymph # [place] # Baso # Seg Neutrophils % Seg Neuts % (Manual) Lymphocytes % (Manual) Monocytes % (Manual) Eosinophils % (Manual) Basophils % (Manual) Nucleated RBC % Seg Neutrophils # Seg Neutrophils # Man Lymphocytes # (Manual) Monocytes # (Manual) Eosinophils # (Manual) Basophils # (Manual) PT INR Fibrinogen dRVVT Confirm Interp Factor V Activity POC ABG pH POC ABG pCO2 POC ABG pO2 ABG pO2 ABG HCO3 ABG Base Excess ABG Hemoglobin Oxyhemoglobin Sodium Potassium Chloride Carbon Dioxide BUN Creatinine Glucose POC Glucose 131 H 134 H 113 H Lactic Acid Calcium Ionized Calcium Phosphorus Magnesium Direct Bilirubin AST ALT Alkaline Phosphatase Lactate Dehydrogenase Troponin T C-Reactive Protein Total Protein Albumin Prealbumin Triglycerides Cholesterol LDL Cholesterol Direct HDL Cholesterol 25-OH Vitamin D Total PTH Intact Urine pH Urine WBC (Auto) Urine Creatinine Urine Total Protein Fluid Total Protein Vancomycin Trough Rheumatoid Factor Complement C4 Miscellaneous Test Crossmatch 11/04/16 11/04/16 11/04/16 05:41 06:00 12:10 WBC RBC Hgb Hct MCV MCH MCHC RDW Plt Count Lymph % (Auto) [place] % (Auto) Lymph # [place] # Baso # Seg Neutrophils % Seg Neuts % (Manual) Lymphocytes % (Manual) Monocytes % (Manual) Eosinophils % (Manual) Basophils % (Manual) Nucleated RBC % Seg Neutrophils # Seg Neutrophils # Man Lymphocytes # (Manual) Monocytes # (Manual) Eosinophils # (Manual) Basophils # (Manual) PT INR Fibrinogen dRVVT Confirm Interp Factor V Activity POC ABG pH POC ABG pCO2 POC ABG pO2 ABG pO2 ABG HCO3 ABG Base Excess ABG Hemoglobin Oxyhemoglobin Sodium Potassium Chloride 96.7 L Carbon Dioxide BUN 52 H Creatinine 1.9 H Glucose 126 H POC Glucose 137 H 191 H Lactic Acid Calcium Ionized Calcium Phosphorus Magnesium Direct Bilirubin AST ALT Alkaline Phosphatase Lactate Dehydrogenase Troponin T C-Reactive Protein Total Protein Albumin Prealbumin Triglycerides Cholesterol LDL Cholesterol Direct HDL Cholesterol 25-OH Vitamin D Total PTH Intact Urine pH Urine WBC (Auto) Urine Creatinine Urine Total Protein Fluid Total Protein Vancomycin Trough Rheumatoid Factor Complement C4 Miscellaneous Test Crossmatch 11/04/16 11/05/16 11/05/16 22:57 03:10 05:10 WBC RBC Hgb Hct MCV MCH MCHC RDW Plt Count Lymph % (Auto) [place] % (Auto) Lymph # [place] # Baso # Seg Neutrophils % Seg Neuts % (Manual) Lymphocytes % (Manual) Monocytes % (Manual) Eosinophils % (Manual) Basophils % (Manual) Nucleated RBC % Seg Neutrophils # Seg Neutrophils # Man Lymphocytes # (Manual) Monocytes # (Manual) Eosinophils # (Manual) Basophils # (Manual) PT INR Fibrinogen dRVVT Confirm Interp Factor V Activity POC ABG pH POC ABG pCO2 POC ABG pO2 ABG pO2 ABG HCO3 ABG Base Excess ABG Hemoglobin Oxyhemoglobin Sodium 136 L Potassium Chloride 97.2 L Carbon Dioxide BUN 32 H Creatinine 1.3 H Glucose 123 H POC Glucose 125 H 108 H Lactic Acid Calcium 7.8 L Ionized Calcium Phosphorus Magnesium Direct Bilirubin AST ALT Alkaline Phosphatase Lactate Dehydrogenase Troponin T C-Reactive Protein Total Protein Albumin Prealbumin Triglycerides Cholesterol LDL Cholesterol Direct HDL Cholesterol 25-OH Vitamin D Total PTH Intact Urine pH Urine WBC (Auto) Urine Creatinine Urine Total Protein Fluid Total Protein Vancomycin Trough Rheumatoid Factor Complement C4 Miscellaneous Test Crossmatch 11/05/16 11/05/16 11/05/16 12:23 13:09 13:25 WBC RBC Hgb Hct MCV MCH MCHC RDW Plt Count Lymph % (Auto) [place] % (Auto) Lymph # [place] # Baso # Seg Neutrophils % Seg Neuts % (Manual) Lymphocytes % (Manual) Monocytes % (Manual) Eosinophils % (Manual) Basophils % (Manual) Nucleated RBC % Seg Neutrophils # Seg Neutrophils # Man Lymphocytes # (Manual) Monocytes # (Manual) Eosinophils # (Manual) Basophils # (Manual) PT INR Fibrinogen dRVVT Confirm Interp Factor V Activity POC ABG pH POC ABG pCO2 POC ABG pO2 ABG pO2 ABG HCO3 ABG Base Excess ABG Hemoglobin Oxyhemoglobin Sodium Potassium Chloride Carbon Dioxide BUN Creatinine Glucose POC Glucose 124 H Lactic Acid Calcium Ionized Calcium Phosphorus Magnesium Direct Bilirubin AST ALT Alkaline Phosphatase Lactate Dehydrogenase Troponin T C-Reactive Protein 11.40 H Total Protein Albumin Prealbumin Triglycerides Cholesterol LDL Cholesterol Direct HDL Cholesterol 25-OH Vitamin D Total PTH Intact Urine pH 9.0 H Urine WBC (Auto) Urine Creatinine Urine Total Protein Fluid Total Protein Vancomycin Trough Rheumatoid Factor Complement C4 Miscellaneous Test Crossmatch 09/16/17 09/16/17 09/16/17 13:25 17:54 23:42 WBC RBC Hgb Hct MCV MCH MCHC RDW Plt Count Lymph % (Auto) [place] % (Auto) Lymph # [place] # Baso # Seg Neutrophils % Seg Neuts % (Manual) Lymphocytes % (Manual) Monocytes % (Manual) Eosinophils % (Manual) Basophils % (Manual) Nucleated RBC % Seg Neutrophils # Seg Neutrophils # Man Lymphocytes # (Manual) Monocytes # (Manual) Eosinophils # (Manual) Basophils # (Manual) PT INR Fibrinogen dRVVT Confirm Interp Factor V Activity POC ABG pH POC ABG pCO2 POC ABG pO2 ABG pO2 ABG HCO3 ABG Base Excess ABG Hemoglobin Oxyhemoglobin Sodium Potassium Chloride Carbon Dioxide BUN Creatinine Glucose POC Glucose 114 H 134 H Lactic Acid Calcium Ionized Calcium Phosphorus Magnesium Direct Bilirubin AST ALT Alkaline Phosphatase Lactate Dehydrogenase Troponin T C-Reactive Protein Total Protein Albumin Prealbumin Triglycerides Cholesterol LDL Cholesterol Direct HDL Cholesterol 25-OH Vitamin D Total PTH Intact Urine pH Urine WBC (Auto) Urine Creatinine Urine Total Protein Fluid Total Protein Vancomycin Trough Rheumatoid Factor Complement C4 Miscellaneous Test Flexitest 1 H Crossmatch 11/06/16 11/06/16 11/06/16 04:56 06:25 06:25 WBC RBC 2.50 L Hgb 7.3 L Hct 22.5 L MCV MCH MCHC RDW 16.9 H Plt Count Lymph % (Auto) [place] % (Auto) 10.5 H Lymph # [place] # 1.1 H Baso # Seg Neutrophils % Seg Neuts % (Manual) Lymphocytes % (Manual) Monocytes % (Manual) Eosinophils % (Manual) Basophils % (Manual) Nucleated RBC % Seg Neutrophils # Seg Neutrophils # Man Lymphocytes # (Manual) Monocytes # (Manual) Eosinophils # (Manual) Basophils # (Manual) PT INR Fibrinogen dRVVT Confirm Interp Factor V Activity POC ABG pH POC ABG pCO2 POC ABG pO2 ABG pO2 ABG HCO3 ABG Base Excess ABG Hemoglobin Oxyhemoglobin Sodium Potassium 5.1 H Chloride 95.9 L Carbon Dioxide BUN 52 H Creatinine 1.8 H Glucose 117 H POC Glucose 120 H Lactic Acid Calcium Ionized Calcium Phosphorus Magnesium Direct Bilirubin AST 103 H ALT 77 H Alkaline Phosphatase 285 H Lactate Dehydrogenase Troponin T C-Reactive Protein Total Protein 6.2 L Albumin 1.8 L Prealbumin 0.180 L Triglycerides Cholesterol LDL Cholesterol Direct HDL Cholesterol 25-OH Vitamin D Total PTH Intact Urine pH Urine WBC (Auto) Urine Creatinine Urine Total Protein Fluid Total Protein Vancomycin Trough Rheumatoid Factor Complement C4 Miscellaneous Test Crossmatch 11/06/16 11/06/16 11/06/16 11:56 17:14 23:52 WBC RBC Hgb Hct MCV MCH MCHC RDW Plt Count Lymph % (Auto) [place] % (Auto) Lymph # [place] # Baso # Seg Neutrophils % Seg Neuts % (Manual) Lymphocytes % (Manual) Monocytes % (Manual) Eosinophils % (Manual) Basophils % (Manual) Nucleated RBC % Seg Neutrophils # Seg Neutrophils # Man Lymphocytes # (Manual) Monocytes # (Manual) Eosinophils # (Manual) Basophils # (Manual) PT INR Fibrinogen dRVVT Confirm Interp Factor V Activity POC ABG pH POC ABG pCO2 POC ABG pO2 ABG pO2 ABG HCO3 ABG Base Excess ABG Hemoglobin Oxyhemoglobin Sodium Potassium Chloride Carbon Dioxide BUN Creatinine Glucose POC Glucose 141 H 125 H 130 H Lactic Acid Calcium Ionized Calcium Phosphorus Magnesium Direct Bilirubin AST ALT Alkaline Phosphatase Lactate Dehydrogenase Troponin T C-Reactive Protein Total Protein Albumin Prealbumin Triglycerides Cholesterol LDL Cholesterol Direct HDL Cholesterol 25-OH Vitamin D Total PTH Intact Urine pH Urine WBC (Auto) Urine Creatinine Urine Total Protein Fluid Total Protein Vancomycin Trough Rheumatoid Factor Complement C4 Miscellaneous Test Crossmatch 11/07/16 11/07/16 11/07/16 06:30 06:30 09:37 WBC RBC 2.18 L Hgb 6.3 L Hct 19.7 L* MCV MCH MCHC RDW 16.8 H Plt Count Lymph % (Auto) [place] % (Auto) 10.0 H Lymph # [place] # 1.0 H Baso # Seg Neutrophils % Seg Neuts % (Manual) Lymphocytes % (Manual) Monocytes % (Manual) Eosinophils % (Manual) Basophils % (Manual) Nucleated RBC % Seg Neutrophils # Seg Neutrophils # Man Lymphocytes # (Manual) Monocytes # (Manual) Eosinophils # (Manual) Basophils # (Manual) PT INR Fibrinogen dRVVT Confirm Interp Factor V Activity POC ABG pH POC ABG pCO2 POC ABG pO2 ABG pO2 ABG HCO3 ABG Base Excess ABG Hemoglobin Oxyhemoglobin Sodium 135 L Potassium Chloride 95.6 L Carbon Dioxide BUN 70 H Creatinine 2.0 H Glucose 126 H POC Glucose Lactic Acid Calcium Ionized Calcium Phosphorus Magnesium Direct Bilirubin AST ALT Alkaline Phosphatase Lactate Dehydrogenase Troponin T C-Reactive Protein Total Protein Albumin Prealbumin Triglycerides Cholesterol LDL Cholesterol Direct HDL Cholesterol 25-OH Vitamin D Total PTH Intact Urine pH Urine WBC (Auto) Urine Creatinine Urine Total Protein Fluid Total Protein Vancomycin Trough Rheumatoid Factor Complement C4 Miscellaneous Test Crossmatch See Detail 11/07/16 11/07/16 11/07/16 12:52 18:51 21:26 WBC RBC Hgb Hct MCV MCH MCHC RDW Plt Count Lymph % (Auto) [place] % (Auto) Lymph # [place] # Baso # Seg Neutrophils % Seg Neuts % (Manual) Lymphocytes % (Manual) Monocytes % (Manual) Eosinophils % (Manual) Basophils % (Manual) Nucleated RBC % Seg Neutrophils # Seg Neutrophils # Man Lymphocytes # (Manual) Monocytes # (Manual) Eosinophils # (Manual) Basophils # (Manual) PT INR Fibrinogen dRVVT Confirm Interp Factor V Activity POC ABG pH 7.523 H POC ABG pCO2 34.6 L POC ABG pO2 53 L ABG pO2 ABG HCO3 ABG Base Excess ABG Hemoglobin Oxyhemoglobin Sodium Potassium Chloride Carbon Dioxide BUN Creatinine Glucose POC Glucose 142 H 155 H Lactic Acid Calcium Ionized Calcium Phosphorus Magnesium Direct Bilirubin AST ALT Alkaline Phosphatase Lactate Dehydrogenase Troponin T C-Reactive Protein Total Protein Albumin Prealbumin Triglycerides Cholesterol LDL Cholesterol Direct HDL Cholesterol 25-OH Vitamin D Total PTH Intact Urine pH Urine WBC (Auto) Urine Creatinine Urine Total Protein Fluid Total Protein Vancomycin Trough Rheumatoid Factor Complement C4 Miscellaneous Test Crossmatch 11/07/16 11/08/16 11/08/16 21:34 13:03 23:37 WBC RBC 2.63 L Hgb 7.7 L Hct 22.7 L MCV MCH MCHC RDW 17.0 H Plt Count Lymph % (Auto) [place] % (Auto) Lymph # [place] # Baso # Seg Neutrophils % Seg Neuts % (Manual) Lymphocytes % (Manual) Monocytes % (Manual) Eosinophils % (Manual) Basophils % (Manual) Nucleated RBC % Seg Neutrophils # Seg Neutrophils # Man Lymphocytes # (Manual) Monocytes # (Manual) Eosinophils # (Manual) Basophils # (Manual) PT INR Fibrinogen dRVVT Confirm Interp Factor V Activity POC ABG pH 7.478 H POC ABG pCO2 34.0 L POC ABG pO2 50 L ABG pO2 ABG HCO3 ABG Base Excess ABG Hemoglobin Oxyhemoglobin Sodium Potassium Chloride Carbon Dioxide BUN Creatinine Glucose POC Glucose 113 H Lactic Acid Calcium Ionized Calcium Phosphorus Magnesium Direct Bilirubin AST ALT Alkaline Phosphatase Lactate Dehydrogenase Troponin T C-Reactive Protein Total Protein Albumin Prealbumin Triglycerides Cholesterol LDL Cholesterol Direct HDL Cholesterol 25-OH Vitamin D Total PTH Intact Urine pH Urine WBC (Auto) Urine Creatinine Urine Total Protein Fluid Total Protein Vancomycin Trough Rheumatoid Factor Complement C4 Miscellaneous Test Crossmatch 11/09/16 11/09/16 11/09/16 04:35 10:15 18:21 WBC RBC 2.68 L Hgb 7.8 L Hct 23.3 L MCV MCH MCHC RDW 17.0 H Plt Count Lymph % (Auto) [place] % (Auto) 12.1 H Lymph # [place] # 1.1 H Baso # Seg Neutrophils % Seg Neuts % (Manual) Lymphocytes % (Manual) Monocytes % (Manual) Eosinophils % (Manual) Basophils % (Manual) Nucleated RBC % Seg Neutrophils # Seg Neutrophils # Man Lymphocytes # (Manual) Monocytes # (Manual) Eosinophils # (Manual) Basophils # (Manual) PT INR Fibrinogen dRVVT Confirm Interp Factor V Activity POC ABG pH POC ABG pCO2 POC ABG pO2 ABG pO2 ABG HCO3 ABG Base Excess ABG Hemoglobin Oxyhemoglobin Sodium Potassium Chloride Carbon Dioxide BUN 51 H Creatinine 1.8 H Glucose POC Glucose 60 L Lactic Acid Calcium 8.3 L Ionized Calcium Phosphorus Magnesium Direct Bilirubin AST ALT Alkaline Phosphatase Lactate Dehydrogenase Troponin T C-Reactive Protein Total Protein Albumin Prealbumin Triglycerides Cholesterol LDL Cholesterol Direct HDL Cholesterol 25-OH Vitamin D Total PTH Intact Urine pH Urine WBC (Auto) Urine Creatinine Urine Total Protein Fluid Total Protein Vancomycin Trough Rheumatoid Factor Complement C4 Miscellaneous Test Crossmatch 11/09/16 11/10/16 11/10/16 18:55 07:00 11:51 WBC RBC Hgb Hct MCV MCH MCHC RDW Plt Count Lymph % (Auto) [place] % (Auto) Lymph # [place] # Baso # Seg Neutrophils % Seg Neuts % (Manual) Lymphocytes % (Manual) Monocytes % (Manual) Eosinophils % (Manual) Basophils % (Manual) Nucleated RBC % Seg Neutrophils # Seg Neutrophils # Man Lymphocytes # (Manual) Monocytes # (Manual) Eosinophils # (Manual) Basophils # (Manual) PT INR Fibrinogen dRVVT Confirm Interp Factor V Activity POC ABG pH POC ABG pCO2 POC ABG pO2 ABG pO2 ABG HCO3 ABG Base Excess ABG Hemoglobin Oxyhemoglobin Sodium Potassium 3.0 L D Chloride 97.4 L Carbon Dioxide BUN 28 H Creatinine 1.3 H Glucose POC Glucose 68 L 120 H Lactic Acid Calcium 7.8 L Ionized Calcium Phosphorus Magnesium Direct Bilirubin AST ALT Alkaline Phosphatase Lactate Dehydrogenase Troponin T C-Reactive Protein Total Protein Albumin Prealbumin Triglycerides Cholesterol LDL Cholesterol Direct HDL Cholesterol 25-OH Vitamin D Total PTH Intact Urine pH Urine WBC (Auto) Urine Creatinine Urine Total Protein Fluid Total Protein Vancomycin Trough Rheumatoid Factor Complement C4 Miscellaneous Test Crossmatch 11/10/16 11/11/16 11/11/16 14:20 06:59 06:59 WBC RBC 2.81 L Hgb 8.1 L Hct 24.4 L MCV MCH MCHC RDW 16.4 H Plt Count Lymph % (Auto) [place] % (Auto) 10.8 H Lymph # [place] # 1.0 H Baso # Seg Neutrophils % Seg Neuts % (Manual) Lymphocytes % (Manual) Monocytes % (Manual) Eosinophils % (Manual) Basophils % (Manual) Nucleated RBC % Seg Neutrophils # Seg Neutrophils # Man Lymphocytes # (Manual) Monocytes # (Manual) Eosinophils # (Manual) Basophils # (Manual) PT INR Fibrinogen dRVVT Confirm Interp Factor V Activity POC ABG pH POC ABG pCO2 POC ABG pO2 ABG pO2 ABG HCO3 ABG Base Excess ABG Hemoglobin Oxyhemoglobin Sodium Potassium Chloride Carbon Dioxide BUN Creatinine Glucose POC Glucose Lactic Acid Calcium Ionized Calcium Phosphorus Magnesium Direct Bilirubin AST ALT Alkaline Phosphatase Lactate Dehydrogenase 196 H Troponin T C-Reactive Protein Total Protein 6.1 L Albumin Prealbumin Triglycerides Cholesterol LDL Cholesterol Direct HDL Cholesterol 25-OH Vitamin D Total PTH Intact Urine pH Urine WBC (Auto) Urine Creatinine Urine Total Protein Fluid Total Protein < 3.0 L Vancomycin Trough Rheumatoid Factor Complement C4 Miscellaneous Test Crossmatch 11/11/16 11/11/16 11/12/16 06:59 09:50 04:00 WBC RBC Hgb Hct MCV MCH MCHC RDW Plt Count Lymph % (Auto) [place] % (Auto) Lymph # [place] # Baso # Seg Neutrophils % Seg Neuts % (Manual) Lymphocytes % (Manual) Monocytes % (Manual) Eosinophils % (Manual) Basophils % (Manual) Nucleated RBC % Seg Neutrophils # Seg Neutrophils # Man Lymphocytes # (Manual) Monocytes # (Manual) Eosinophils # (Manual) Basophils # (Manual) PT INR 1.18 H Fibrinogen dRVVT Confirm Interp Factor V Activity POC ABG pH POC ABG pCO2 POC ABG pO2 ABG pO2 ABG HCO3 ABG Base Excess ABG Hemoglobin Oxyhemoglobin Sodium 136 L 133 L Potassium Chloride 96.1 L 94.8 L Carbon Dioxide 21 L BUN 37 H 42 H Creatinine 1.8 H 2.0 H Glucose POC Glucose Lactic Acid Calcium Ionized Calcium Phosphorus Magnesium Direct Bilirubin AST ALT Alkaline Phosphatase Lactate Dehydrogenase Troponin T C-Reactive Protein Total Protein Albumin Prealbumin Triglycerides Cholesterol LDL Cholesterol Direct HDL Cholesterol 25-OH Vitamin D Total PTH Intact Urine pH Urine WBC (Auto) Urine Creatinine Urine Total Protein Fluid Total Protein Vancomycin Trough Rheumatoid Factor Complement C4 Miscellaneous Test Crossmatch 11/12/16 11/12/16 11/13/16 04:00 23:55 05:53 WBC RBC Hgb 8.9 L Hct 27.2 L MCV MCH MCHC RDW Plt Count Lymph % (Auto) [place] % (Auto) Lymph # [place] # Baso # Seg Neutrophils % Seg Neuts % (Manual) Lymphocytes % (Manual) Monocytes % (Manual) Eosinophils % (Manual) Basophils % (Manual) Nucleated RBC % Seg Neutrophils # Seg Neutrophils # Man Lymphocytes # (Manual) Monocytes # (Manual) Eosinophils # (Manual) Basophils # (Manual) PT INR Fibrinogen dRVVT Confirm Interp Factor V Activity POC ABG pH POC ABG pCO2 POC ABG pO2 ABG pO2 ABG HCO3 ABG Base Excess ABG Hemoglobin Oxyhemoglobin Sodium Potassium Chloride Carbon Dioxide BUN Creatinine Glucose POC Glucose 132 H 120 H Lactic Acid Calcium Ionized Calcium Phosphorus Magnesium Direct Bilirubin AST ALT Alkaline Phosphatase Lactate Dehydrogenase Troponin T C-Reactive Protein Total Protein Albumin Prealbumin Triglycerides Cholesterol LDL Cholesterol Direct HDL Cholesterol 25-OH Vitamin D Total PTH Intact Urine pH Urine WBC (Auto) Urine Creatinine Urine Total Protein Fluid Total Protein Vancomycin Trough Rheumatoid Factor Complement C4 Miscellaneous Test Crossmatch 11/13/16 11/13/16 11/13/16 11:43 17:09 23:41 WBC RBC Hgb Hct MCV MCH MCHC RDW Plt Count Lymph % (Auto) [place] % (Auto) Lymph # [place] # Baso # Seg Neutrophils % Seg Neuts % (Manual) Lymphocytes % (Manual) Monocytes % (Manual) Eosinophils % (Manual) Basophils % (Manual) Nucleated RBC % Seg Neutrophils # Seg Neutrophils # Man Lymphocytes # (Manual) Monocytes # (Manual) Eosinophils # (Manual) Basophils # (Manual) PT INR Fibrinogen dRVVT Confirm Interp Factor V Activity POC ABG pH POC ABG pCO2 POC ABG pO2 ABG pO2 ABG HCO3 ABG Base Excess ABG Hemoglobin Oxyhemoglobin Sodium Potassium Chloride Carbon Dioxide BUN Creatinine Glucose POC Glucose 114 H 113 H 108 H Lactic Acid Calcium Ionized Calcium Phosphorus Magnesium Direct Bilirubin AST ALT Alkaline Phosphatase Lactate Dehydrogenase Troponin T C-Reactive Protein Total Protein Albumin Prealbumin Triglycerides Cholesterol LDL Cholesterol Direct HDL Cholesterol 25-OH Vitamin D Total PTH Intact Urine pH Urine WBC (Auto) Urine Creatinine Urine Total Protein Fluid Total Protein Vancomycin Trough Rheumatoid Factor Complement C4 Miscellaneous Test Crossmatch 11/13/16 11/15/16 11/15/16 Unknown 00:37 03:30 WBC 11.2 H RBC 2.72 L Hgb 7.6 L Hct 23.4 L MCV MCH MCHC RDW 16.5 H Plt Count Lymph % (Auto) [place] % (Auto) Lymph # [place] # Baso # Seg Neutrophils % Seg Neuts % (Manual) Lymphocytes % (Manual) Monocytes % (Manual) Eosinophils % (Manual) Basophils % (Manual) Nucleated RBC % Seg Neutrophils # Seg Neutrophils # Man Lymphocytes # (Manual) Monocytes # (Manual) Eosinophils # (Manual) Basophils # (Manual) PT INR Fibrinogen dRVVT Confirm Interp Factor V Activity POC ABG pH POC ABG pCO2 POC ABG pO2 ABG pO2 ABG HCO3 ABG Base Excess ABG Hemoglobin Oxyhemoglobin Sodium 135 L Potassium Chloride 95.2 L Carbon Dioxide BUN 52 H Creatinine 2.2 H Glucose POC Glucose 108 H Lactic Acid Calcium Ionized Calcium Phosphorus Magnesium Direct Bilirubin AST ALT Alkaline Phosphatase Lactate Dehydrogenase Troponin T C-Reactive Protein Total Protein Albumin Prealbumin Triglycerides Cholesterol LDL Cholesterol Direct HDL Cholesterol 25-OH Vitamin D Total PTH Intact Urine pH Urine WBC (Auto) Urine Creatinine Urine Total Protein Fluid Total Protein Vancomycin Trough Rheumatoid Factor Complement C4 Miscellaneous Test Crossmatch 11/15/16 11/15/16 11/15/16 03:30 05:04 11:50 WBC RBC Hgb Hct MCV MCH MCHC RDW Plt Count Lymph % (Auto) [place] % (Auto) Lymph # [place] # Baso # Seg Neutrophils % Seg Neuts % (Manual) Lymphocytes % (Manual) Monocytes % (Manual) Eosinophils % (Manual) Basophils % (Manual) Nucleated RBC % Seg Neutrophils # Seg Neutrophils # Man Lymphocytes # (Manual) Monocytes # (Manual) Eosinophils # (Manual) Basophils # (Manual) PT INR Fibrinogen dRVVT Confirm Interp Factor V Activity POC ABG pH POC ABG pCO2 POC ABG pO2 ABG pO2 ABG HCO3 ABG Base Excess ABG Hemoglobin Oxyhemoglobin Sodium Potassium 3.4 L Chloride Carbon Dioxide BUN 25 H Creatinine 1.5 H Glucose 103 H POC Glucose 121 H 144 H Lactic Acid Calcium Ionized Calcium Phosphorus Magnesium Direct Bilirubin AST ALT Alkaline Phosphatase Lactate Dehydrogenase Troponin T C-Reactive Protein Total Protein Albumin Prealbumin Triglycerides Cholesterol LDL Cholesterol Direct HDL Cholesterol 25-OH Vitamin D Total PTH Intact Urine pH Urine WBC (Auto) Urine Creatinine Urine Total Protein Fluid Total Protein Vancomycin Trough Rheumatoid Factor Complement C4 Miscellaneous Test Crossmatch 11/15/16 11/15/16 11/16/16 21:28 23:20 11:44 WBC RBC Hgb Hct MCV MCH MCHC RDW Plt Count Lymph % (Auto) [place] % (Auto) Lymph # [place] # Baso # Seg Neutrophils % Seg Neuts % (Manual) Lymphocytes % (Manual) Monocytes % (Manual) Eosinophils % (Manual) Basophils % (Manual) Nucleated RBC % Seg Neutrophils # Seg Neutrophils # Man Lymphocytes # (Manual) Monocytes # (Manual) Eosinophils # (Manual) Basophils # (Manual) PT INR Fibrinogen dRVVT Confirm Interp Factor V Activity POC ABG pH 7.462 H POC ABG pCO2 POC ABG pO2 71 L ABG pO2 ABG HCO3 ABG Base Excess ABG Hemoglobin Oxyhemoglobin Sodium Potassium Chloride Carbon Dioxide BUN Creatinine Glucose POC Glucose 116 H 133 H Lactic Acid Calcium Ionized Calcium Phosphorus Magnesium Direct Bilirubin AST ALT Alkaline Phosphatase Lactate Dehydrogenase Troponin T C-Reactive Protein Total Protein Albumin Prealbumin Triglycerides Cholesterol LDL Cholesterol Direct HDL Cholesterol 25-OH Vitamin D Total PTH Intact Urine pH Urine WBC (Auto) Urine Creatinine Urine Total Protein Fluid Total Protein Vancomycin Trough Rheumatoid Factor Complement C4 Miscellaneous Test Crossmatch 11/16/16 11/16/16 11/16/16 12:20 17:05 23:35 WBC 11.7 H RBC 2.73 L Hgb 7.6 L Hct 23.7 L MCV MCH MCHC RDW 16.6 H Plt Count Lymph % (Auto) [place] % (Auto) Lymph # [place] # Baso # Seg Neutrophils % Seg Neuts % (Manual) Lymphocytes % (Manual) Monocytes % (Manual) Eosinophils % (Manual) Basophils % (Manual) Nucleated RBC % Seg Neutrophils # Seg Neutrophils # Man Lymphocytes # (Manual) Monocytes # (Manual) Eosinophils # (Manual) Basophils # (Manual) PT INR Fibrinogen dRVVT Confirm Interp Factor V Activity POC ABG pH POC ABG pCO2 POC ABG pO2 ABG pO2 ABG HCO3 ABG Base Excess ABG Hemoglobin Oxyhemoglobin Sodium Potassium Chloride Carbon Dioxide BUN Creatinine Glucose POC Glucose 154 H 125 H Lactic Acid Calcium Ionized Calcium Phosphorus Magnesium Direct Bilirubin AST ALT Alkaline Phosphatase Lactate Dehydrogenase Troponin T C-Reactive Protein Total Protein Albumin Prealbumin Triglycerides Cholesterol LDL Cholesterol Direct HDL Cholesterol 25-OH Vitamin D Total PTH Intact Urine pH Urine WBC (Auto) Urine Creatinine Urine Total Protein Fluid Total Protein Vancomycin Trough Rheumatoid Factor Complement C4 Miscellaneous Test Crossmatch 11/17/16 11/17/16 11/17/16 03:20 03:20 03:20 WBC RBC 2.55 L Hgb 7.3 L Hct 21.9 L MCV MCH MCHC RDW 16.6 H Plt Count Lymph % (Auto) [place] % (Auto) 11.5 H Lymph # [place] # 1.1 H Baso # Seg Neutrophils % Seg Neuts % (Manual) Lymphocytes % (Manual) Monocytes % (Manual) Eosinophils % (Manual) Basophils % (Manual) Nucleated RBC % Seg Neutrophils # Seg Neutrophils # Man Lymphocytes # (Manual) Monocytes # (Manual) Eosinophils # (Manual) Basophils # (Manual) PT 16.8 H INR 1.37 H Fibrinogen dRVVT Confirm Interp Factor V Activity POC ABG pH POC ABG pCO2 POC ABG pO2 ABG pO2 ABG HCO3 ABG Base Excess ABG Hemoglobin Oxyhemoglobin Sodium Potassium 3.5 L Chloride Carbon Dioxide BUN 21 H Creatinine Glucose POC Glucose Lactic Acid Calcium 7.9 L Ionized Calcium Phosphorus Magnesium Direct Bilirubin AST ALT Alkaline Phosphatase Lactate Dehydrogenase Troponin T C-Reactive Protein Total Protein Albumin Prealbumin Triglycerides Cholesterol LDL Cholesterol Direct HDL Cholesterol 25-OH Vitamin D Total PTH Intact Urine pH Urine WBC (Auto) Urine Creatinine Urine Total Protein Fluid Total Protein Vancomycin Trough Rheumatoid Factor Complement C4 Miscellaneous Test Crossmatch 11/17/16 11/17/16 11/17/16 06:34 11:21 21:22 WBC RBC Hgb Hct MCV MCH MCHC RDW Plt Count Lymph % (Auto) [place] % (Auto) Lymph # [place] # Baso # Seg Neutrophils % Seg Neuts % (Manual) Lymphocytes % (Manual) Monocytes % (Manual) Eosinophils % (Manual) Basophils % (Manual) Nucleated RBC % Seg Neutrophils # Seg Neutrophils # Man Lymphocytes # (Manual) Monocytes # (Manual) Eosinophils # (Manual) Basophils # (Manual) PT INR Fibrinogen dRVVT Confirm Interp Factor V Activity POC ABG pH 7.467 H POC ABG pCO2 POC ABG pO2 73 L ABG pO2 ABG HCO3 ABG Base Excess ABG Hemoglobin Oxyhemoglobin Sodium Potassium Chloride Carbon Dioxide BUN Creatinine Glucose POC Glucose 121 H 119 H Lactic Acid Calcium Ionized Calcium Phosphorus Magnesium Direct Bilirubin AST ALT Alkaline Phosphatase Lactate Dehydrogenase Troponin T C-Reactive Protein Total Protein Albumin Prealbumin Triglycerides Cholesterol LDL Cholesterol Direct HDL Cholesterol 25-OH Vitamin D Total PTH Intact Urine pH Urine WBC (Auto) Urine Creatinine Urine Total Protein Fluid Total Protein Vancomycin Trough Rheumatoid Factor Complement C4 Miscellaneous Test Crossmatch 11/18/16 11/18/16 11/19/16 12:16 17:19 00:00 WBC RBC Hgb Hct MCV MCH MCHC RDW Plt Count Lymph % (Auto) [place] % (Auto) Lymph # [place] # Baso # Seg Neutrophils % Seg Neuts % (Manual) Lymphocytes % (Manual) Monocytes % (Manual) Eosinophils % (Manual) Basophils % (Manual) Nucleated RBC % Seg Neutrophils # Seg Neutrophils # Man Lymphocytes # (Manual) Monocytes # (Manual) Eosinophils # (Manual) Basophils # (Manual) PT INR Fibrinogen dRVVT Confirm Interp Factor V Activity POC ABG pH POC ABG pCO2 POC ABG pO2 ABG pO2 ABG HCO3 ABG Base Excess ABG Hemoglobin Oxyhemoglobin Sodium Potassium Chloride Carbon Dioxide BUN Creatinine Glucose POC Glucose 124 H 162 H 139 H Lactic Acid Calcium Ionized Calcium Phosphorus Magnesium Direct Bilirubin AST ALT Alkaline Phosphatase Lactate Dehydrogenase Troponin T C-Reactive Protein Total Protein Albumin Prealbumin Triglycerides Cholesterol LDL Cholesterol Direct HDL Cholesterol 25-OH Vitamin D Total PTH Intact Urine pH Urine WBC (Auto) Urine Creatinine Urine Total Protein Fluid Total Protein Vancomycin Trough Rheumatoid Factor Complement C4 Miscellaneous Test Crossmatch 11/19/16 11/19/16 11/20/16 05:00 12:43 00:40 WBC RBC Hgb Hct MCV MCH MCHC RDW Plt Count Lymph % (Auto) [place] % (Auto) Lymph # [place] # Baso # Seg Neutrophils % Seg Neuts % (Manual) Lymphocytes % (Manual) Monocytes % (Manual) Eosinophils % (Manual) Basophils % (Manual) Nucleated RBC % Seg Neutrophils # Seg Neutrophils # Man Lymphocytes # (Manual) Monocytes # (Manual) Eosinophils # (Manual) Basophils # (Manual) PT INR Fibrinogen dRVVT Confirm Interp Factor V Activity POC ABG pH POC ABG pCO2 POC ABG pO2 ABG pO2 ABG HCO3 ABG Base Excess ABG Hemoglobin Oxyhemoglobin Sodium Potassium Chloride Carbon Dioxide BUN Creatinine Glucose POC Glucose 110 H 125 H 136 H Lactic Acid Calcium Ionized Calcium Phosphorus Magnesium Direct Bilirubin AST ALT Alkaline Phosphatase Lactate Dehydrogenase Troponin T C-Reactive Protein Total Protein Albumin Prealbumin Triglycerides Cholesterol LDL Cholesterol Direct HDL Cholesterol 25-OH Vitamin D Total PTH Intact Urine pH Urine WBC (Auto) Urine Creatinine Urine Total Protein Fluid Total Protein Vancomycin Trough Rheumatoid Factor Complement C4 Miscellaneous Test Crossmatch 11/20/16 11/20/16 11/20/16 05:00 05:00 05:51 WBC 13.1 H RBC 2.74 L Hgb 7.7 L Hct 23.6 L MCV MCH MCHC RDW 16.9 H Plt Count Lymph % (Auto) [place] % (Auto) 10.8 H Lymph # [place] # 1.4 H Baso # Seg Neutrophils % Seg Neuts % (Manual) Lymphocytes % (Manual) Monocytes % (Manual) Eosinophils % (Manual) Basophils % (Manual) Nucleated RBC % Seg Neutrophils # 7.9 H Seg Neutrophils # Man Lymphocytes # (Manual) Monocytes # (Manual) Eosinophils # (Manual) Basophils # (Manual) PT INR Fibrinogen dRVVT Confirm Interp Factor V Activity POC ABG pH POC ABG pCO2 POC ABG pO2 ABG pO2 ABG HCO3 ABG Base Excess ABG Hemoglobin Oxyhemoglobin Sodium Potassium Chloride Carbon Dioxide BUN 31 H Creatinine 1.8 H Glucose 129 H POC Glucose 133 H Lactic Acid Calcium Ionized Calcium Phosphorus Magnesium Direct Bilirubin AST ALT Alkaline Phosphatase Lactate Dehydrogenase Troponin T C-Reactive Protein Total Protein Albumin Prealbumin Triglycerides Cholesterol LDL Cholesterol Direct HDL Cholesterol 25-OH Vitamin D Total PTH Intact Urine pH Urine WBC (Auto) Urine Creatinine Urine Total Protein Fluid Total Protein Vancomycin Trough Rheumatoid Factor Complement C4 Miscellaneous Test Crossmatch 11/20/16 11/20/16 11/21/16 12:40 18:10 01:20 WBC RBC Hgb Hct MCV MCH MCHC RDW Plt Count Lymph % (Auto) [place] % (Auto) Lymph # [place] # Baso # Seg Neutrophils % Seg Neuts % (Manual) Lymphocytes % (Manual) Monocytes % (Manual) Eosinophils % (Manual) Basophils % (Manual) Nucleated RBC % Seg Neutrophils # Seg Neutrophils # Man Lymphocytes # (Manual) Monocytes # (Manual) Eosinophils # (Manual) Basophils # (Manual) PT INR Fibrinogen dRVVT Confirm Interp Factor V Activity POC ABG pH POC ABG pCO2 POC ABG pO2 ABG pO2 ABG HCO3 ABG Base Excess ABG Hemoglobin Oxyhemoglobin Sodium Potassium Chloride Carbon Dioxide BUN Creatinine Glucose POC Glucose 134 H 138 H 136 H Lactic Acid Calcium Ionized Calcium Phosphorus Magnesium Direct Bilirubin AST ALT Alkaline Phosphatase Lactate Dehydrogenase Troponin T C-Reactive Protein Total Protein Albumin Prealbumin Triglycerides Cholesterol LDL Cholesterol Direct HDL Cholesterol 25-OH Vitamin D Total PTH Intact Urine pH Urine WBC (Auto) Urine Creatinine Urine Total Protein Fluid Total Protein Vancomycin Trough Rheumatoid Factor Complement C4 Miscellaneous Test Crossmatch 11/21/16 11/21/16 11/21/16 07:04 07:45 07:45 WBC 22.0 H RBC 2.91 L Hgb 8.2 L Hct 25.4 L MCV MCH MCHC RDW 17.1 H Plt Count Lymph % (Auto) [place] % (Auto) Lymph # [place] # Baso # Seg Neutrophils % Seg Neuts % (Manual) Lymphocytes % (Manual) 8.0 L Monocytes % (Manual) Eosinophils % (Manual) Basophils % (Manual) Nucleated RBC % Seg Neutrophils # Seg Neutrophils # Man 14.7 H Lymphocytes # (Manual) Monocytes # (Manual) 1.1 H Eosinophils # (Manual) Basophils # (Manual) PT INR Fibrinogen dRVVT Confirm Interp Factor V Activity POC ABG pH POC ABG pCO2 POC ABG pO2 ABG pO2 ABG HCO3 ABG Base Excess ABG Hemoglobin Oxyhemoglobin Sodium Potassium Chloride Carbon Dioxide BUN 42 H Creatinine 2.0 H Glucose POC Glucose 108 H Lactic Acid Calcium Ionized Calcium Phosphorus Magnesium Direct Bilirubin AST ALT Alkaline Phosphatase Lactate Dehydrogenase Troponin T C-Reactive Protein Total Protein Albumin Prealbumin Triglycerides Cholesterol LDL Cholesterol Direct HDL Cholesterol 25-OH Vitamin D Total PTH Intact Urine pH Urine WBC (Auto) Urine Creatinine Urine Total Protein Fluid Total Protein Vancomycin Trough Rheumatoid Factor Complement C4 Miscellaneous Test Crossmatch 11/21/16 11/21/16 11/21/16 08:38 10:09 11:20 WBC RBC Hgb Hct MCV MCH MCHC RDW Plt Count Lymph % (Auto) [place] % (Auto) Lymph # [place] # Baso # Seg Neutrophils % Seg Neuts % (Manual) Lymphocytes % (Manual) Monocytes % (Manual) Eosinophils % (Manual) Basophils % (Manual) Nucleated RBC % Seg Neutrophils # Seg Neutrophils # Man Lymphocytes # (Manual) Monocytes # (Manual) Eosinophils # (Manual) Basophils # (Manual) PT INR Fibrinogen dRVVT Confirm Interp Factor V Activity POC ABG pH 7.346 L POC ABG pCO2 34.4 L POC ABG pO2 314 H ABG pO2 ABG HCO3 ABG Base Excess ABG Hemoglobin Oxyhemoglobin Sodium Potassium Chloride Carbon Dioxide BUN Creatinine Glucose POC Glucose 195 H 153 H Lactic Acid Calcium Ionized Calcium Phosphorus Magnesium Direct Bilirubin AST ALT Alkaline Phosphatase Lactate Dehydrogenase Troponin T C-Reactive Protein Total Protein Albumin Prealbumin Triglycerides Cholesterol LDL Cholesterol Direct HDL Cholesterol 25-OH Vitamin D Total PTH Intact Urine pH Urine WBC (Auto) Urine Creatinine Urine Total Protein Fluid Total Protein Vancomycin Trough Rheumatoid Factor Complement C4 Miscellaneous Test Crossmatch 11/21/16 11/22/16 11/22/16 23:37 04:48 05:00 WBC 29.7 H RBC 2.73 L Hgb 7.5 L Hct 24.2 L MCV MCH 27 L MCHC RDW 17.4 H Plt Count Lymph % (Auto) [place] % (Auto) Lymph # [place] # Baso # Seg Neutrophils % Seg Neuts % (Manual) Lymphocytes % (Manual) 7.0 L Monocytes % (Manual) Eosinophils % (Manual) Basophils % (Manual) Nucleated RBC % Seg Neutrophils # Seg Neutrophils # Man 15.4 H Lymphocytes # (Manual) Monocytes # (Manual) Eosinophils # (Manual) Basophils # (Manual) PT INR Fibrinogen dRVVT Confirm Interp Factor V Activity POC ABG pH POC ABG pCO2 24.6 L POC ABG pO2 189 H ABG pO2 ABG HCO3 ABG Base Excess ABG Hemoglobin Oxyhemoglobin Sodium Potassium Chloride Carbon Dioxide BUN Creatinine Glucose POC Glucose 65 L Lactic Acid Calcium Ionized Calcium Phosphorus Magnesium Direct Bilirubin AST ALT Alkaline Phosphatase Lactate Dehydrogenase Troponin T C-Reactive Protein Total Protein Albumin Prealbumin Triglycerides Cholesterol LDL Cholesterol Direct HDL Cholesterol 25-OH Vitamin D Total PTH Intact Urine pH Urine WBC (Auto) Urine Creatinine Urine Total Protein Fluid Total Protein Vancomycin Trough Rheumatoid Factor Complement C4 Miscellaneous Test Crossmatch 11/22/16 11/23/16 11/23/16 05:00 03:44 04:06 WBC RBC 2.52 L Hgb 7.2 L Hct 21.5 L MCV MCH MCHC RDW 17.1 H Plt Count Lymph % (Auto) [place] % (Auto) 12.4 H Lymph # [place] # 1.4 H Baso # Seg Neutrophils % Seg Neuts % (Manual) Lymphocytes % (Manual) Monocytes % (Manual) Eosinophils % (Manual) Basophils % (Manual) Nucleated RBC % Seg Neutrophils # Seg Neutrophils # Man Lymphocytes # (Manual) Monocytes # (Manual) Eosinophils # (Manual) Basophils # (Manual) PT INR Fibrinogen dRVVT Confirm Interp Factor V Activity POC ABG pH 7.493 H POC ABG pCO2 29.5 L POC ABG pO2 49 L ABG pO2 ABG HCO3 ABG Base Excess ABG Hemoglobin Oxyhemoglobin Sodium 134 L Potassium Chloride 95.9 L Carbon Dioxide 14 L D BUN 51 H Creatinine 2.6 H Glucose POC Glucose Lactic Acid Calcium Ionized Calcium Phosphorus Magnesium Direct Bilirubin AST ALT Alkaline Phosphatase Lactate Dehydrogenase Troponin T C-Reactive Protein Total Protein Albumin Prealbumin Triglycerides Cholesterol LDL Cholesterol Direct HDL Cholesterol 25-OH Vitamin D Total PTH Intact Urine pH Urine WBC (Auto) Urine Creatinine Urine Total Protein Fluid Total Protein Vancomycin Trough Rheumatoid Factor Complement C4 Miscellaneous Test Crossmatch 11/23/16 11/23/16 11/24/16 04:06 11:29 06:39 WBC RBC Hgb Hct MCV MCH MCHC RDW Plt Count Lymph % (Auto) [place] % (Auto) Lymph # [place] # Baso # Seg Neutrophils % Seg Neuts % (Manual) Lymphocytes % (Manual) Monocytes % (Manual) Eosinophils % (Manual) Basophils % (Manual) Nucleated RBC % Seg Neutrophils # Seg Neutrophils # Man Lymphocytes # (Manual) Monocytes # (Manual) Eosinophils # (Manual) Basophils # (Manual) PT INR Fibrinogen dRVVT Confirm Interp Factor V Activity POC ABG pH POC ABG pCO2 POC ABG pO2 ABG pO2 ABG HCO3 ABG Base Excess ABG Hemoglobin Oxyhemoglobin Sodium 136 L Potassium Chloride 95.2 L Carbon Dioxide BUN 60 H Creatinine 2.9 H Glucose POC Glucose 69 L 305 H Lactic Acid Calcium Ionized Calcium Phosphorus Magnesium 1.60 L Direct Bilirubin AST ALT Alkaline Phosphatase Lactate Dehydrogenase Troponin T C-Reactive Protein Total Protein Albumin Prealbumin Triglycerides Cholesterol LDL Cholesterol Direct HDL Cholesterol 25-OH Vitamin D Total PTH Intact Urine pH Urine WBC (Auto) Urine Creatinine Urine Total Protein Fluid Total Protein Vancomycin Trough Rheumatoid Factor Complement C4 Miscellaneous Test Crossmatch 11/24/16 11/24/16 11/24/16 06:43 08:08 08:08 WBC 11.2 H RBC 2.47 L Hgb 6.8 L Hct 20.6 L MCV MCH MCHC RDW 17.0 H Plt Count Lymph % (Auto) [place] % (Auto) 10.3 H Lymph # [place] # 1.2 H Baso # Seg Neutrophils % Seg Neuts % (Manual) Lymphocytes % (Manual) Monocytes % (Manual) Eosinophils % (Manual) Basophils % (Manual) Nucleated RBC % Seg Neutrophils # Seg Neutrophils # Man Lymphocytes # (Manual) Monocytes # (Manual) Eosinophils # (Manual) Basophils # (Manual) PT INR Fibrinogen dRVVT Confirm Interp Factor V Activity POC ABG pH POC ABG pCO2 POC ABG pO2 ABG pO2 ABG HCO3 ABG Base Excess ABG Hemoglobin Oxyhemoglobin Sodium 135 L Potassium Chloride 96.3 L Carbon Dioxide BUN 61 H Creatinine 3.1 H Glucose POC Glucose 62 L Lactic Acid Calcium 8.2 L Ionized Calcium Phosphorus Magnesium Direct Bilirubin AST ALT Alkaline Phosphatase Lactate Dehydrogenase Troponin T C-Reactive Protein Total Protein Albumin Prealbumin Triglycerides Cholesterol LDL Cholesterol Direct HDL Cholesterol 25-OH Vitamin D Total PTH Intact Urine pH Urine WBC (Auto) Urine Creatinine Urine Total Protein Fluid Total Protein Vancomycin Trough Rheumatoid Factor Complement C4 Miscellaneous Test Crossmatch 11/24/16 11/24/16 11/24/16 08:34 11:20 12:41 WBC RBC Hgb Hct MCV MCH MCHC RDW Plt Count Lymph % (Auto) [place] % (Auto) Lymph # [place] # Baso # Seg Neutrophils % Seg Neuts % (Manual) Lymphocytes % (Manual) Monocytes % (Manual) Eosinophils % (Manual) Basophils % (Manual) Nucleated RBC % Seg Neutrophils # Seg Neutrophils # Man Lymphocytes # (Manual) Monocytes # (Manual) Eosinophils # (Manual) Basophils # (Manual) PT INR Fibrinogen dRVVT Confirm Interp Factor V Activity POC ABG pH POC ABG pCO2 POC ABG pO2 ABG pO2 ABG HCO3 ABG Base Excess ABG Hemoglobin Oxyhemoglobin Sodium Potassium Chloride Carbon Dioxide BUN Creatinine Glucose POC Glucose 108 H Lactic Acid Calcium Ionized Calcium Phosphorus Magnesium 1.60 L Direct Bilirubin AST ALT Alkaline Phosphatase Lactate Dehydrogenase Troponin T C-Reactive Protein Total Protein Albumin Prealbumin Triglycerides Cholesterol LDL Cholesterol Direct HDL Cholesterol 25-OH Vitamin D Total PTH Intact Urine pH Urine WBC (Auto) Urine Creatinine Urine Total Protein Fluid Total Protein Vancomycin Trough Rheumatoid Factor Complement C4 Miscellaneous Test Crossmatch See Detail 11/25/16 11/25/16 11/25/16 00:03 04:42 04:42 WBC RBC 3.03 L Hgb 8.6 L Hct 25.3 L MCV MCH MCHC RDW 16.2 H Plt Count Lymph % (Auto) [place] % (Auto) 8.1 H Lymph # [place] # Baso # Seg Neutrophils % 71.3 H Seg Neuts % (Manual) Lymphocytes % (Manual) Monocytes % (Manual) Eosinophils % (Manual) Basophils % (Manual) Nucleated RBC % Seg Neutrophils # Seg Neutrophils # Man Lymphocytes # (Manual) Monocytes # (Manual) Eosinophils # (Manual) Basophils # (Manual) PT INR Fibrinogen dRVVT Confirm Interp Factor V Activity POC ABG pH POC ABG pCO2 POC ABG pO2 ABG pO2 ABG HCO3 ABG Base Excess ABG Hemoglobin Oxyhemoglobin Sodium Potassium Chloride Carbon Dioxide BUN 61 H Creatinine 3.0 H Glucose 102 H POC Glucose 113 H Lactic Acid Calcium 8.2 L Ionized Calcium Phosphorus Magnesium Direct Bilirubin AST ALT Alkaline Phosphatase 142 H Lactate Dehydrogenase Troponin T C-Reactive Protein Total Protein 5.7 L Albumin 1.5 L Prealbumin Triglycerides Cholesterol LDL Cholesterol Direct HDL Cholesterol 25-OH Vitamin D Total PTH Intact Urine pH Urine WBC (Auto) Urine Creatinine Urine Total Protein Fluid Total Protein Vancomycin Trough Rheumatoid Factor Complement C4 Miscellaneous Test Crossmatch 11/25/16 11/25/16 11/25/16 05:12 11:31 14:12 WBC RBC Hgb Hct MCV MCH MCHC RDW Plt Count Lymph % (Auto) [place] % (Auto) Lymph # [place] # Baso # Seg Neutrophils % Seg Neuts % (Manual) Lymphocytes % (Manual) Monocytes % (Manual) Eosinophils % (Manual) Basophils % (Manual) Nucleated RBC % Seg Neutrophils # Seg Neutrophils # Man Lymphocytes # (Manual) Monocytes # (Manual) Eosinophils # (Manual) Basophils # (Manual) PT INR Fibrinogen dRVVT Confirm Interp Factor V Activity POC ABG pH 7.487 H POC ABG pCO2 POC ABG pO2 153 H ABG pO2 ABG HCO3 ABG Base Excess ABG Hemoglobin Oxyhemoglobin Sodium Potassium Chloride Carbon Dioxide BUN Creatinine Glucose POC Glucose 131 H 140 H Lactic Acid Calcium Ionized Calcium Phosphorus Magnesium Direct Bilirubin AST ALT Alkaline Phosphatase Lactate Dehydrogenase Troponin T C-Reactive Protein Total Protein Albumin Prealbumin Triglycerides Cholesterol LDL Cholesterol Direct HDL Cholesterol 25-OH Vitamin D Total PTH Intact Urine pH Urine WBC (Auto) Urine Creatinine Urine Total Protein Fluid Total Protein Vancomycin Trough Rheumatoid Factor Complement C4 Miscellaneous Test Crossmatch 11/25/16 11/26/16 11/26/16 17:23 00:09 05:13 WBC RBC 2.94 L Hgb 8.4 L Hct 24.6 L MCV MCH MCHC RDW 16.4 H Plt Count Lymph % (Auto) [place] % (Auto) 12.3 H Lymph # [place] # 1.1 H Baso # Seg Neutrophils % Seg Neuts % (Manual) Lymphocytes % (Manual) Monocytes % (Manual) Eosinophils % (Manual) Basophils % (Manual) Nucleated RBC % Seg Neutrophils # Seg Neutrophils # Man Lymphocytes # (Manual) Monocytes # (Manual) Eosinophils # (Manual) Basophils # (Manual) PT INR Fibrinogen dRVVT Confirm Interp Factor V Activity POC ABG pH POC ABG pCO2 POC ABG pO2 ABG pO2 ABG HCO3 ABG Base Excess ABG Hemoglobin Oxyhemoglobin Sodium Potassium Chloride Carbon Dioxide BUN Creatinine Glucose POC Glucose 146 H 112 H Lactic Acid Calcium Ionized Calcium Phosphorus Magnesium Direct Bilirubin AST ALT Alkaline Phosphatase Lactate Dehydrogenase Troponin T C-Reactive Protein Total Protein Albumin Prealbumin Triglycerides Cholesterol LDL Cholesterol Direct HDL Cholesterol 25-OH Vitamin D Total PTH Intact Urine pH Urine WBC (Auto) Urine Creatinine Urine Total Protein Fluid Total Protein Vancomycin Trough Rheumatoid Factor Complement C4 Miscellaneous Test Crossmatch 11/26/16 11/26/16 11/26/16 05:13 05:28 11:53 WBC RBC Hgb Hct MCV MCH MCHC RDW Plt Count Lymph % (Auto) [place] % (Auto) Lymph # [place] # Baso # Seg Neutrophils % Seg Neuts % (Manual) Lymphocytes % (Manual) Monocytes % (Manual) Eosinophils % (Manual) Basophils % (Manual) Nucleated RBC % Seg Neutrophils # Seg Neutrophils # Man Lymphocytes # (Manual) Monocytes # (Manual) Eosinophils # (Manual) Basophils # (Manual) PT INR Fibrinogen dRVVT Confirm Interp Factor V Activity POC ABG pH POC ABG pCO2 POC ABG pO2 ABG pO2 ABG HCO3 ABG Base Excess ABG Hemoglobin Oxyhemoglobin Sodium Potassium Chloride 97.8 L Carbon Dioxide BUN 37 H Creatinine 2.0 H Glucose 109 H POC Glucose 117 H 111 H Lactic Acid Calcium 7.9 L Ionized Calcium Phosphorus 1.80 L D Magnesium Direct Bilirubin AST ALT Alkaline Phosphatase Lactate Dehydrogenase Troponin T C-Reactive Protein Total Protein Albumin Prealbumin Triglycerides Cholesterol LDL Cholesterol Direct HDL Cholesterol 25-OH Vitamin D Total PTH Intact Urine pH Urine WBC (Auto) Urine Creatinine Urine Total Protein Fluid Total Protein Vancomycin Trough Rheumatoid Factor Complement C4 Miscellaneous Test Crossmatch 11/26/16 11/27/16 11/27/16 17:14 04:50 06:02 WBC RBC Hgb Hct MCV MCH MCHC RDW Plt Count Lymph % (Auto) [place] % (Auto) Lymph # [place] # Baso # Seg Neutrophils % Seg Neuts % (Manual) Lymphocytes % (Manual) Monocytes % (Manual) Eosinophils % (Manual) Basophils % (Manual) Nucleated RBC % Seg Neutrophils # Seg Neutrophils # Man Lymphocytes # (Manual) Monocytes # (Manual) Eosinophils # (Manual) Basophils # (Manual) PT INR Fibrinogen dRVVT Confirm Interp Factor V Activity POC ABG pH POC ABG pCO2 POC ABG pO2 ABG pO2 75.2 L ABG HCO3 26.4 H ABG Base Excess ABG Hemoglobin 7.6 L Oxyhemoglobin 94.8 L Sodium Potassium Chloride Carbon Dioxide BUN 49 H Creatinine 2.3 H Glucose POC Glucose 115 H Lactic Acid Calcium Ionized Calcium Phosphorus 1.50 L Magnesium Direct Bilirubin AST ALT Alkaline Phosphatase Lactate Dehydrogenase Troponin T C-Reactive Protein Total Protein Albumin Prealbumin Triglycerides Cholesterol LDL Cholesterol Direct HDL Cholesterol 25-OH Vitamin D Total PTH Intact Urine pH Urine WBC (Auto) Urine Creatinine Urine Total Protein Fluid Total Protein Vancomycin Trough Rheumatoid Factor Complement C4 Miscellaneous Test Crossmatch 11/27/16 11/27/16 11/27/16 06:02 11:25 17:25 WBC 11.6 H RBC 2.75 L Hgb 7.6 L Hct 23.4 L MCV MCH MCHC RDW 16.5 H Plt Count Lymph % (Auto) [place] % (Auto) Lymph # [place] # Baso # Seg Neutrophils % Seg Neuts % (Manual) Lymphocytes % (Manual) Monocytes % (Manual) Eosinophils % (Manual) Basophils % (Manual) Nucleated RBC % Seg Neutrophils # Seg Neutrophils # Man Lymphocytes # (Manual) Monocytes # (Manual) Eosinophils # (Manual) Basophils # (Manual) PT INR Fibrinogen dRVVT Confirm Interp Factor V Activity POC ABG pH POC ABG pCO2 POC ABG pO2 ABG pO2 ABG HCO3 ABG Base Excess ABG Hemoglobin Oxyhemoglobin Sodium Potassium Chloride Carbon Dioxide BUN Creatinine Glucose POC Glucose 114 H 126 H Lactic Acid Calcium Ionized Calcium Phosphorus Magnesium Direct Bilirubin AST ALT Alkaline Phosphatase Lactate Dehydrogenase Troponin T C-Reactive Protein Total Protein Albumin Prealbumin Triglycerides Cholesterol LDL Cholesterol Direct HDL Cholesterol 25-OH Vitamin D Total PTH Intact Urine pH Urine WBC (Auto) Urine Creatinine Urine Total Protein Fluid Total Protein Vancomycin Trough Rheumatoid Factor Complement C4 Miscellaneous Test Crossmatch 11/28/16 11/28/16 11/28/16 04:45 05:33 05:44 WBC RBC Hgb Hct MCV MCH MCHC RDW Plt Count Lymph % (Auto) [place] % (Auto) Lymph # [place] # Baso # Seg Neutrophils % Seg Neuts % (Manual) Lymphocytes % (Manual) Monocytes % (Manual) Eosinophils % (Manual) Basophils % (Manual) Nucleated RBC % Seg Neutrophils # Seg Neutrophils # Man Lymphocytes # (Manual) Monocytes # (Manual) Eosinophils # (Manual) Basophils # (Manual) PT INR Fibrinogen dRVVT Confirm Interp Factor V Activity POC ABG pH POC ABG pCO2 POC ABG pO2 ABG pO2 99.3 H ABG HCO3 ABG Base Excess ABG Hemoglobin 8.3 L Oxyhemoglobin Sodium Potassium Chloride Carbon Dioxide BUN 63 H Creatinine 2.4 H Glucose 102 H POC Glucose 108 H Lactic Acid Calcium Ionized Calcium Phosphorus 1.80 L Magnesium Direct Bilirubin AST ALT Alkaline Phosphatase Lactate Dehydrogenase Troponin T C-Reactive Protein Total Protein Albumin Prealbumin Triglycerides Cholesterol LDL Cholesterol Direct HDL Cholesterol 25-OH Vitamin D Total PTH Intact Urine pH Urine WBC (Auto) Urine Creatinine Urine Total Protein Fluid Total Protein Vancomycin Trough Rheumatoid Factor Complement C4 Miscellaneous Test Crossmatch 11/28/16 11/28/16 11/28/16 12:31 16:09 23:46 WBC RBC Hgb Hct MCV MCH MCHC RDW Plt Count Lymph % (Auto) [place] % (Auto) Lymph # [place] # Baso # Seg Neutrophils % Seg Neuts % (Manual) Lymphocytes % (Manual) Monocytes % (Manual) Eosinophils % (Manual) Basophils % (Manual) Nucleated RBC % Seg Neutrophils # Seg Neutrophils # Man Lymphocytes # (Manual) Monocytes # (Manual) Eosinophils # (Manual) Basophils # (Manual) PT INR Fibrinogen dRVVT Confirm Interp Factor V Activity POC ABG pH POC ABG pCO2 POC ABG pO2 ABG pO2 ABG HCO3 ABG Base Excess ABG Hemoglobin Oxyhemoglobin Sodium Potassium Chloride Carbon Dioxide BUN Creatinine Glucose POC Glucose 126 H 111 H 119 H Lactic Acid Calcium Ionized Calcium Phosphorus Magnesium Direct Bilirubin AST ALT Alkaline Phosphatase Lactate Dehydrogenase Troponin T C-Reactive Protein Total Protein Albumin Prealbumin Triglycerides Cholesterol LDL Cholesterol Direct HDL Cholesterol 25-OH Vitamin D Total PTH Intact Urine pH Urine WBC (Auto) Urine Creatinine Urine Total Protein Fluid Total Protein Vancomycin Trough Rheumatoid Factor Complement C4 Miscellaneous Test Crossmatch 11/29/16 11/29/16 11/29/16 03:33 04:52 05:10 WBC RBC Hgb Hct MCV MCH MCHC RDW Plt Count Lymph % (Auto) [place] % (Auto) Lymph # [place] # Baso # Seg Neutrophils % Seg Neuts % (Manual) Lymphocytes % (Manual) Monocytes % (Manual) Eosinophils % (Manual) Basophils % (Manual) Nucleated RBC % Seg Neutrophils # Seg Neutrophils # Man Lymphocytes # (Manual) Monocytes # (Manual) Eosinophils # (Manual) Basophils # (Manual) PT INR Fibrinogen dRVVT Confirm Interp Factor V Activity POC ABG pH POC ABG pCO2 POC ABG pO2 ABG pO2 ABG HCO3 ABG Base Excess ABG Hemoglobin 7.0 L Oxyhemoglobin 94.9 L Sodium Potassium Chloride Carbon Dioxide BUN 73 H Creatinine 2.7 H Glucose POC Glucose 108 H Lactic Acid Calcium Ionized Calcium Phosphorus Magnesium Direct Bilirubin AST ALT Alkaline Phosphatase Lactate Dehydrogenase Troponin T C-Reactive Protein Total Protein Albumin Prealbumin Triglycerides Cholesterol LDL Cholesterol Direct HDL Cholesterol 25-OH Vitamin D Total PTH Intact Urine pH Urine WBC (Auto) Urine Creatinine Urine Total Protein Fluid Total Protein Vancomycin Trough Rheumatoid Factor Complement C4 Miscellaneous Test Crossmatch 11/29/16 11/29/16 11/29/16 12:16 18:05 23:46 WBC RBC Hgb Hct MCV MCH MCHC RDW Plt Count Lymph % (Auto) [place] % (Auto) Lymph # [place] # Baso # Seg Neutrophils % Seg Neuts % (Manual) Lymphocytes % (Manual) Monocytes % (Manual) Eosinophils % (Manual) Basophils % (Manual) Nucleated RBC % Seg Neutrophils # Seg Neutrophils # Man Lymphocytes # (Manual) Monocytes # (Manual) Eosinophils # (Manual) Basophils # (Manual) PT INR Fibrinogen dRVVT Confirm Interp Factor V Activity POC ABG pH POC ABG pCO2 POC ABG pO2 ABG pO2 ABG HCO3 ABG Base Excess ABG Hemoglobin Oxyhemoglobin Sodium Potassium Chloride Carbon Dioxide BUN Creatinine Glucose POC Glucose 133 H 146 H 141 H Lactic Acid Calcium Ionized Calcium Phosphorus Magnesium Direct Bilirubin AST ALT Alkaline Phosphatase Lactate Dehydrogenase Troponin T C-Reactive Protein Total Protein Albumin Prealbumin Triglycerides Cholesterol LDL Cholesterol Direct HDL Cholesterol 25-OH Vitamin D Total PTH Intact Urine pH Urine WBC (Auto) Urine Creatinine Urine Total Protein Fluid Total Protein Vancomycin Trough Rheumatoid Factor Complement C4 Miscellaneous Test Crossmatch 11/30/16 11/30/16 11/30/16 04:17 04:17 04:32 WBC 12.0 H RBC 2.80 L Hgb 7.8 L Hct 23.6 L MCV MCH MCHC RDW 16.6 H Plt Count Lymph % (Auto) [place] % (Auto) 11.3 H Lymph # [place] # 1.4 H Baso # Seg Neutrophils % Seg Neuts % (Manual) Lymphocytes % (Manual) Monocytes % (Manual) Eosinophils % (Manual) Basophils % (Manual) Nucleated RBC % Seg Neutrophils # 8.2 H Seg Neutrophils # Man Lymphocytes # (Manual) Monocytes # (Manual) Eosinophils # (Manual) Basophils # (Manual) PT INR Fibrinogen dRVVT Confirm Interp Factor V Activity POC ABG pH POC ABG pCO2 POC ABG pO2 ABG pO2 ABG HCO3 ABG Base Excess ABG Hemoglobin Oxyhemoglobin Sodium 169 H* D Potassium 5.1 H Chloride 121.5 H Carbon Dioxide BUN 34 H Creatinine 1.3 H D Glucose 133 H POC Glucose 131 H Lactic Acid Calcium 10.3 H Ionized Calcium Phosphorus Magnesium Direct Bilirubin AST ALT Alkaline Phosphatase Lactate Dehydrogenase Troponin T C-Reactive Protein Total Protein Albumin Prealbumin Triglycerides Cholesterol LDL Cholesterol Direct HDL Cholesterol 25-OH Vitamin D Total PTH Intact Urine pH Urine WBC (Auto) Urine Creatinine Urine Total Protein Fluid Total Protein Vancomycin Trough Rheumatoid Factor Complement C4 Miscellaneous Test Crossmatch 11/30/16 11/30/16 11/30/16 05:45 11:10 17:26 WBC RBC Hgb Hct MCV MCH MCHC RDW Plt Count Lymph % (Auto) [place] % (Auto) Lymph # [place] # Baso # Seg Neutrophils % Seg Neuts % (Manual) Lymphocytes % (Manual) Monocytes % (Manual) Eosinophils % (Manual) Basophils % (Manual) Nucleated RBC % Seg Neutrophils # Seg Neutrophils # Man Lymphocytes # (Manual) Monocytes # (Manual) Eosinophils # (Manual) Basophils # (Manual) PT INR Fibrinogen dRVVT Confirm Interp Factor V Activity POC ABG pH POC ABG pCO2 POC ABG pO2 ABG pO2 ABG HCO3 ABG Base Excess ABG Hemoglobin Oxyhemoglobin Sodium Potassium Chloride Carbon Dioxide BUN 45 H Creatinine 1.6 H Glucose 131 H POC Glucose 146 H 134 H Lactic Acid Calcium Ionized Calcium Phosphorus Magnesium Direct Bilirubin AST ALT Alkaline Phosphatase Lactate Dehydrogenase Troponin T C-Reactive Protein Total Protein Albumin Prealbumin Triglycerides Cholesterol LDL Cholesterol Direct HDL Cholesterol 25-OH Vitamin D Total PTH Intact Urine pH Urine WBC (Auto) Urine Creatinine Urine Total Protein Fluid Total Protein Vancomycin Trough Rheumatoid Factor Complement C4 Miscellaneous Test Crossmatch 11/30/16 12/01/16 12/01/16 23:35 00:06 03:35 WBC RBC Hgb Hct MCV MCH MCHC RDW Plt Count Lymph % (Auto) [place] % (Auto) Lymph # [place] # Baso # Seg Neutrophils % Seg Neuts % (Manual) Lymphocytes % (Manual) Monocytes % (Manual) Eosinophils % (Manual) Basophils % (Manual) Nucleated RBC % Seg Neutrophils # Seg Neutrophils # Man Lymphocytes # (Manual) Monocytes # (Manual) Eosinophils # (Manual) Basophils # (Manual) PT INR Fibrinogen dRVVT Confirm Interp Factor V Activity POC ABG pH POC ABG pCO2 POC ABG pO2 ABG pO2 ABG HCO3 ABG Base Excess ABG Hemoglobin 6.9 L Oxyhemoglobin Sodium Potassium Chloride Carbon Dioxide BUN 58 H Creatinine 1.8 H Glucose 146 H POC Glucose 151 H Lactic Acid Calcium Ionized Calcium Phosphorus Magnesium Direct Bilirubin AST ALT Alkaline Phosphatase Lactate Dehydrogenase Troponin T C-Reactive Protein Total Protein Albumin Prealbumin Triglycerides Cholesterol LDL Cholesterol Direct HDL Cholesterol 25-OH Vitamin D Total PTH Intact Urine pH Urine WBC (Auto) Urine Creatinine Urine Total Protein Fluid Total Protein Vancomycin Trough Rheumatoid Factor Complement C4 Miscellaneous Test Crossmatch 12/01/16 12/01/16 12/01/16 03:35 05:47 11:52 WBC 12.3 H RBC 2.82 L Hgb 7.8 L Hct 23.7 L MCV MCH MCHC RDW 16.7 H Plt Count Lymph % (Auto) [place] % (Auto) 9.8 H Lymph # [place] # 1.2 H Baso # Seg Neutrophils % Seg Neuts % (Manual) Lymphocytes % (Manual) Monocytes % (Manual) Eosinophils % (Manual) Basophils % (Manual) Nucleated RBC % Seg Neutrophils # 8.4 H Seg Neutrophils # Man Lymphocytes # (Manual) Monocytes # (Manual) Eosinophils # (Manual) Basophils # (Manual) PT INR Fibrinogen dRVVT Confirm Interp Factor V Activity POC ABG pH POC ABG pCO2 POC ABG pO2 ABG pO2 ABG HCO3 ABG Base Excess ABG Hemoglobin Oxyhemoglobin Sodium Potassium Chloride Carbon Dioxide BUN Creatinine Glucose POC Glucose 152 H 152 H Lactic Acid Calcium Ionized Calcium Phosphorus Magnesium Direct Bilirubin AST ALT Alkaline Phosphatase Lactate Dehydrogenase Troponin T C-Reactive Protein Total Protein Albumin Prealbumin Triglycerides Cholesterol LDL Cholesterol Direct HDL Cholesterol 25-OH Vitamin D Total PTH Intact Urine pH Urine WBC (Auto) Urine Creatinine Urine Total Protein Fluid Total Protein Vancomycin Trough Rheumatoid Factor Complement C4 Miscellaneous Test Crossmatch 12/01/16 12/01/16 12/02/16 17:40 23:41 05:00 WBC RBC Hgb Hct MCV MCH MCHC RDW Plt Count Lymph % (Auto) [place] % (Auto) Lymph # [place] # Baso # Seg Neutrophils % Seg Neuts % (Manual) Lymphocytes % (Manual) Monocytes % (Manual) Eosinophils % (Manual) Basophils % (Manual) Nucleated RBC % Seg Neutrophils # Seg Neutrophils # Man Lymphocytes # (Manual) Monocytes # (Manual) Eosinophils # (Manual) Basophils # (Manual) PT INR Fibrinogen dRVVT Confirm Interp Factor V Activity POC ABG pH POC ABG pCO2 POC ABG pO2 ABG pO2 ABG HCO3 ABG Base Excess ABG Hemoglobin Oxyhemoglobin Sodium Potassium Chloride Carbon Dioxide BUN 45 H Creatinine Glucose 115 H POC Glucose 140 H 144 H Lactic Acid Calcium Ionized Calcium Phosphorus Magnesium Direct Bilirubin AST ALT Alkaline Phosphatase Lactate Dehydrogenase Troponin T C-Reactive Protein Total Protein Albumin Prealbumin Triglycerides Cholesterol LDL Cholesterol Direct HDL Cholesterol 25-OH Vitamin D Total PTH Intact Urine pH Urine WBC (Auto) Urine Creatinine Urine Total Protein Fluid Total Protein Vancomycin Trough Rheumatoid Factor Complement C4 Miscellaneous Test Crossmatch 12/02/16 12/02/16 12/02/16 05:31 11:20 17:38 WBC RBC Hgb Hct MCV MCH MCHC RDW Plt Count Lymph % (Auto) [place] % (Auto) Lymph # [place] # Baso # Seg Neutrophils % Seg Neuts % (Manual) Lymphocytes % (Manual) Monocytes % (Manual) Eosinophils % (Manual) Basophils % (Manual) Nucleated RBC % Seg Neutrophils # Seg Neutrophils # Man Lymphocytes # (Manual) Monocytes # (Manual) Eosinophils # (Manual) Basophils # (Manual) PT INR Fibrinogen dRVVT Confirm Interp Factor V Activity POC ABG pH POC ABG pCO2 POC ABG pO2 ABG pO2 ABG HCO3 ABG Base Excess ABG Hemoglobin Oxyhemoglobin Sodium Potassium Chloride Carbon Dioxide BUN Creatinine Glucose POC Glucose 136 H 177 H 139 H Lactic Acid Calcium Ionized Calcium Phosphorus Magnesium Direct Bilirubin AST ALT Alkaline Phosphatase Lactate Dehydrogenase Troponin T C-Reactive Protein Total Protein Albumin Prealbumin Triglycerides Cholesterol LDL Cholesterol Direct HDL Cholesterol 25-OH Vitamin D Total PTH Intact Urine pH Urine WBC (Auto) Urine Creatinine Urine Total Protein Fluid Total Protein Vancomycin Trough Rheumatoid Factor Complement C4 Miscellaneous Test Crossmatch 12/02/16 12/03/16 12/03/16 23:43 04:00 04:00 WBC 20.4 H RBC 2.74 L Hgb 7.4 L Hct 23.6 L MCV MCH 27 L MCHC RDW 17.1 H Plt Count Lymph % (Auto) [place] % (Auto) Lymph # [place] # Baso # Seg Neutrophils % Seg Neuts % (Manual) 31.0 L Lymphocytes % (Manual) Monocytes % (Manual) Eosinophils % (Manual) Basophils % (Manual) Nucleated RBC % Seg Neutrophils # Seg Neutrophils # Man Lymphocytes # (Manual) Monocytes # (Manual) Eosinophils # (Manual) Basophils # (Manual) PT INR Fibrinogen dRVVT Confirm Interp Factor V Activity POC ABG pH POC ABG pCO2 POC ABG pO2 ABG pO2 ABG HCO3 ABG Base Excess ABG Hemoglobin Oxyhemoglobin Sodium Potassium Chloride Carbon Dioxide BUN 61 H Creatinine 1.6 H Glucose 119 H POC Glucose 158 H Lactic Acid Calcium Ionized Calcium Phosphorus Magnesium Direct Bilirubin AST ALT Alkaline Phosphatase Lactate Dehydrogenase Troponin T C-Reactive Protein Total Protein Albumin Prealbumin Triglycerides Cholesterol LDL Cholesterol Direct HDL Cholesterol 25-OH Vitamin D Total PTH Intact Urine pH Urine WBC (Auto) Urine Creatinine Urine Total Protein Fluid Total Protein Vancomycin Trough Rheumatoid Factor Complement C4 Miscellaneous Test Crossmatch 12/03/16 12/03/16 12/03/16 05:02 12:11 18:16 WBC RBC Hgb Hct MCV MCH MCHC RDW Plt Count Lymph % (Auto) [place] % (Auto) Lymph # [place] # Baso # Seg Neutrophils % Seg Neuts % (Manual) Lymphocytes % (Manual) Monocytes % (Manual) Eosinophils % (Manual) Basophils % (Manual) Nucleated RBC % Seg Neutrophils # Seg Neutrophils # Man Lymphocytes # (Manual) Monocytes # (Manual) Eosinophils # (Manual) Basophils # (Manual) PT INR Fibrinogen dRVVT Confirm Interp Factor V Activity POC ABG pH POC ABG pCO2 POC ABG pO2 ABG pO2 ABG HCO3 ABG Base Excess ABG Hemoglobin Oxyhemoglobin Sodium Potassium Chloride Carbon Dioxide BUN Creatinine Glucose POC Glucose 146 H 157 H 124 H Lactic Acid Calcium Ionized Calcium Phosphorus Magnesium Direct Bilirubin AST ALT Alkaline Phosphatase Lactate Dehydrogenase Troponin T C-Reactive Protein Total Protein Albumin Prealbumin Triglycerides Cholesterol LDL Cholesterol Direct HDL Cholesterol 25-OH Vitamin D Total PTH Intact Urine pH Urine WBC (Auto) Urine Creatinine Urine Total Protein Fluid Total Protein Vancomycin Trough Rheumatoid Factor Complement C4 Miscellaneous Test Crossmatch 12/03/16 12/04/16 12/04/16 23:41 04:00 04:45 WBC RBC Hgb Hct MCV MCH MCHC RDW Plt Count Lymph % (Auto) [place] % (Auto) Lymph # [place] # Baso # Seg Neutrophils % Seg Neuts % (Manual) Lymphocytes % (Manual) Monocytes % (Manual) Eosinophils % (Manual) Basophils % (Manual) Nucleated RBC % Seg Neutrophils # Seg Neutrophils # Man Lymphocytes # (Manual) Monocytes # (Manual) Eosinophils # (Manual) Basophils # (Manual) PT INR Fibrinogen dRVVT Confirm Interp Factor V Activity POC ABG pH POC ABG pCO2 POC ABG pO2 ABG pO2 ABG HCO3 ABG Base Excess ABG Hemoglobin Oxyhemoglobin Sodium Potassium Chloride Carbon Dioxide BUN 76 H Creatinine 1.6 H Glucose POC Glucose 130 H 136 H Lactic Acid Calcium Ionized Calcium Phosphorus Magnesium Direct Bilirubin AST ALT Alkaline Phosphatase 155 H Lactate Dehydrogenase Troponin T C-Reactive Protein Total Protein 5.5 L Albumin 1.5 L Prealbumin Triglycerides Cholesterol LDL Cholesterol Direct HDL Cholesterol 25-OH Vitamin D Total PTH Intact Urine pH Urine WBC (Auto) Urine Creatinine Urine Total Protein Fluid Total Protein Vancomycin Trough Rheumatoid Factor Complement C4 Miscellaneous Test Crossmatch 12/04/16 12/04/16 12/05/16 12:08 17:23 00:10 WBC RBC Hgb Hct MCV MCH MCHC RDW Plt Count Lymph % (Auto) [place] % (Auto) Lymph # [place] # Baso # Seg Neutrophils % Seg Neuts % (Manual) Lymphocytes % (Manual) Monocytes % (Manual) Eosinophils % (Manual) Basophils % (Manual) Nucleated RBC % Seg Neutrophils # Seg Neutrophils # Man Lymphocytes # (Manual) Monocytes # (Manual) Eosinophils # (Manual) Basophils # (Manual) PT INR Fibrinogen dRVVT Confirm Interp Factor V Activity POC ABG pH POC ABG pCO2 POC ABG pO2 ABG pO2 ABG HCO3 ABG Base Excess ABG Hemoglobin Oxyhemoglobin Sodium Potassium Chloride Carbon Dioxide BUN Creatinine Glucose POC Glucose 114 H 129 H 124 H Lactic Acid Calcium Ionized Calcium Phosphorus Magnesium Direct Bilirubin AST ALT Alkaline Phosphatase Lactate Dehydrogenase Troponin T C-Reactive Protein Total Protein Albumin Prealbumin Triglycerides Cholesterol LDL Cholesterol Direct HDL Cholesterol 25-OH Vitamin D Total PTH Intact Urine pH Urine WBC (Auto) Urine Creatinine Urine Total Protein Fluid Total Protein Vancomycin Trough Rheumatoid Factor Complement C4 Miscellaneous Test Crossmatch 12/05/16 12/05/16 12/05/16 05:00 05:00 05:18 WBC RBC Hgb Hct MCV MCH MCHC RDW Plt Count Lymph % (Auto) [place] % (Auto) Lymph # [place] # Baso # Seg Neutrophils % Seg Neuts % (Manual) Lymphocytes % (Manual) Monocytes % (Manual) Eosinophils % (Manual) Basophils % (Manual) Nucleated RBC % Seg Neutrophils # Seg Neutrophils # Man Lymphocytes # (Manual) Monocytes # (Manual) Eosinophils # (Manual) Basophils # (Manual) PT INR Fibrinogen dRVVT Confirm Interp Factor V Activity POC ABG pH POC ABG pCO2 POC ABG pO2 ABG pO2 ABG HCO3 ABG Base Excess ABG Hemoglobin Oxyhemoglobin Sodium Potassium Chloride Carbon Dioxide 21 L BUN 85 H Creatinine 1.9 H Glucose 131 H POC Glucose 154 H Lactic Acid Calcium Ionized Calcium Phosphorus Magnesium Direct Bilirubin AST ALT Alkaline Phosphatase Lactate Dehydrogenase Troponin T C-Reactive Protein 19.30 H Total Protein Albumin Prealbumin Triglycerides Cholesterol LDL Cholesterol Direct HDL Cholesterol 25-OH Vitamin D Total PTH Intact Urine pH Urine WBC (Auto) Urine Creatinine Urine Total Protein Fluid Total Protein Vancomycin Trough Rheumatoid Factor Complement C4 Miscellaneous Test Crossmatch 12/05/16 12/05/16 12/05/16 11:43 17:46 23:25 WBC RBC Hgb Hct MCV MCH MCHC RDW Plt Count Lymph % (Auto) [place] % (Auto) Lymph # [place] # Baso # Seg Neutrophils % Seg Neuts % (Manual) Lymphocytes % (Manual) Monocytes % (Manual) Eosinophils % (Manual) Basophils % (Manual) Nucleated RBC % Seg Neutrophils # Seg Neutrophils # Man Lymphocytes # (Manual) Monocytes # (Manual) Eosinophils # (Manual) Basophils # (Manual) PT INR Fibrinogen dRVVT Confirm Interp Factor V Activity POC ABG pH POC ABG pCO2 POC ABG pO2 ABG pO2 ABG HCO3 ABG Base Excess ABG Hemoglobin Oxyhemoglobin Sodium Potassium Chloride Carbon Dioxide BUN Creatinine Glucose POC Glucose 117 H 113 H 111 H Lactic Acid Calcium Ionized Calcium Phosphorus Magnesium Direct Bilirubin AST ALT Alkaline Phosphatase Lactate Dehydrogenase Troponin T C-Reactive Protein Total Protein Albumin Prealbumin Triglycerides Cholesterol LDL Cholesterol Direct HDL Cholesterol 25-OH Vitamin D Total PTH Intact Urine pH Urine WBC (Auto) Urine Creatinine Urine Total Protein Fluid Total Protein Vancomycin Trough Rheumatoid Factor Complement C4 Miscellaneous Test Crossmatch 12/05/16 12/06/16 12/06/16 Unknown 04:58 06:00 WBC RBC Hgb Hct MCV MCH MCHC RDW Plt Count Lymph % (Auto) [place] % (Auto) Lymph # [place] # Baso # Seg Neutrophils % Seg Neuts % (Manual) Lymphocytes % (Manual) Monocytes % (Manual) Eosinophils % (Manual) Basophils % (Manual) Nucleated RBC % Seg Neutrophils # Seg Neutrophils # Man Lymphocytes # (Manual) Monocytes # (Manual) Eosinophils # (Manual) Basophils # (Manual) PT INR Fibrinogen dRVVT Confirm Interp Factor V Activity POC ABG pH POC ABG pCO2 POC ABG pO2 ABG pO2 75.2 L ABG HCO3 ABG Base Excess -3.4 L ABG Hemoglobin 7.4 L Oxyhemoglobin 94.5 L Sodium Potassium Chloride Carbon Dioxide 20 L BUN 99 H Creatinine 2.1 H Glucose 126 H POC Glucose 145 H Lactic Acid Calcium Ionized Calcium Phosphorus 4.80 H Magnesium Direct Bilirubin AST ALT Alkaline Phosphatase Lactate Dehydrogenase Troponin T C-Reactive Protein Total Protein Albumin Prealbumin Triglycerides Cholesterol LDL Cholesterol Direct HDL Cholesterol 25-OH Vitamin D Total PTH Intact Urine pH Urine WBC (Auto) Urine Creatinine Urine Total Protein Fluid Total Protein Vancomycin Trough Rheumatoid Factor Complement C4 Miscellaneous Test Crossmatch 12/06/16 12/06/16 12/06/16 06:46 11:54 17:55 WBC RBC Hgb 8.3 L Hct 26.4 L MCV MCH MCHC RDW Plt Count Lymph % (Auto) [place] % (Auto) Lymph # [place] # Baso # Seg Neutrophils % Seg Neuts % (Manual) Lymphocytes % (Manual) Monocytes % (Manual) Eosinophils % (Manual) Basophils % (Manual) Nucleated RBC % Seg Neutrophils # Seg Neutrophils # Man Lymphocytes # (Manual) Monocytes # (Manual) Eosinophils # (Manual) Basophils # (Manual) PT INR Fibrinogen dRVVT Confirm Interp Factor V Activity POC ABG pH POC ABG pCO2 POC ABG pO2 ABG pO2 ABG HCO3 ABG Base Excess ABG Hemoglobin Oxyhemoglobin Sodium Potassium Chloride Carbon Dioxide BUN Creatinine Glucose POC Glucose 126 H 157 H Lactic Acid Calcium Ionized Calcium Phosphorus Magnesium Direct Bilirubin AST ALT Alkaline Phosphatase Lactate Dehydrogenase Troponin T C-Reactive Protein Total Protein Albumin Prealbumin Triglycerides Cholesterol LDL Cholesterol Direct HDL Cholesterol 25-OH Vitamin D Total PTH Intact Urine pH Urine WBC (Auto) Urine Creatinine Urine Total Protein Fluid Total Protein Vancomycin Trough Rheumatoid Factor Complement C4 Miscellaneous Test Crossmatch 12/06/16 12/07/16 12/07/16 23:59 05:34 06:30 WBC RBC Hgb Hct MCV MCH MCHC RDW Plt Count Lymph % (Auto) [place] % (Auto) Lymph # [place] # Baso # Seg Neutrophils % Seg Neuts % (Manual) Lymphocytes % (Manual) Monocytes % (Manual) Eosinophils % (Manual) Basophils % (Manual) Nucleated RBC % Seg Neutrophils # Seg Neutrophils # Man Lymphocytes # (Manual) Monocytes # (Manual) Eosinophils # (Manual) Basophils # (Manual) PT INR Fibrinogen dRVVT Confirm Interp Factor V Activity POC ABG pH POC ABG pCO2 POC ABG pO2 ABG pO2 ABG HCO3 ABG Base Excess ABG Hemoglobin Oxyhemoglobin Sodium Potassium Chloride Carbon Dioxide BUN 67 H Creatinine 1.4 H Glucose 126 H POC Glucose 129 H 129 H Lactic Acid Calcium Ionized Calcium Phosphorus Magnesium Direct Bilirubin AST ALT Alkaline Phosphatase Lactate Dehydrogenase Troponin T C-Reactive Protein Total Protein Albumin Prealbumin Triglycerides Cholesterol LDL Cholesterol Direct HDL Cholesterol 25-OH Vitamin D Total PTH Intact Urine pH Urine WBC (Auto) Urine Creatinine Urine Total Protein Fluid Total Protein Vancomycin Trough Rheumatoid Factor Complement C4 Miscellaneous Test Crossmatch 12/07/16 12/07/16 12/07/16 06:30 08:00 09:45 WBC 18.8 H RBC 2.52 L Hgb 6.9 L 6.8 L Hct 21.2 L 21.1 L MCV MCH 27 L MCHC RDW 18.0 H Plt Count Lymph % (Auto) [place] % (Auto) 9.9 H Lymph # [place] # 1.9 H Baso # Seg Neutrophils % 71.8 H Seg Neuts % (Manual) Lymphocytes % (Manual) Monocytes % (Manual) Eosinophils % (Manual) Basophils % (Manual) Nucleated RBC % Seg Neutrophils # 13.5 H Seg Neutrophils # Man Lymphocytes # (Manual) Monocytes # (Manual) Eosinophils # (Manual) Basophils # (Manual) PT INR Fibrinogen dRVVT Confirm Interp Factor V Activity POC ABG pH POC ABG pCO2 POC ABG pO2 ABG pO2 ABG HCO3 ABG Base Excess ABG Hemoglobin Oxyhemoglobin Sodium Potassium Chloride Carbon Dioxide BUN Creatinine Glucose POC Glucose Lactic Acid Calcium Ionized Calcium Phosphorus Magnesium Direct Bilirubin AST ALT Alkaline Phosphatase Lactate Dehydrogenase Troponin T C-Reactive Protein Total Protein Albumin Prealbumin Triglycerides Cholesterol LDL Cholesterol Direct HDL Cholesterol 25-OH Vitamin D Total PTH Intact Urine pH Urine WBC (Auto) Urine Creatinine Urine Total Protein Fluid Total Protein Vancomycin Trough Rheumatoid Factor Complement C4 Miscellaneous Test Crossmatch See Detail 12/07/16 12/07/16 12/07/16 11:44 18:19 23:59 WBC RBC Hgb Hct MCV MCH MCHC RDW Plt Count Lymph % (Auto) [place] % (Auto) Lymph # [place] # Baso # Seg Neutrophils % Seg Neuts % (Manual) Lymphocytes % (Manual) Monocytes % (Manual) Eosinophils % (Manual) Basophils % (Manual) Nucleated RBC % Seg Neutrophils # Seg Neutrophils # Man Lymphocytes # (Manual) Monocytes # (Manual) Eosinophils # (Manual) Basophils # (Manual) PT INR Fibrinogen dRVVT Confirm Interp Factor V Activity POC ABG pH POC ABG pCO2 POC ABG pO2 ABG pO2 ABG HCO3 ABG Base Excess ABG Hemoglobin Oxyhemoglobin Sodium Potassium Chloride Carbon Dioxide BUN Creatinine Glucose POC Glucose 137 H 138 H 133 H Lactic Acid Calcium Ionized Calcium Phosphorus Magnesium Direct Bilirubin AST ALT Alkaline Phosphatase Lactate Dehydrogenase Troponin T C-Reactive Protein Total Protein Albumin Prealbumin Triglycerides Cholesterol LDL Cholesterol Direct HDL Cholesterol 25-OH Vitamin D Total PTH Intact Urine pH Urine WBC (Auto) Urine Creatinine Urine Total Protein Fluid Total Protein Vancomycin Trough Rheumatoid Factor Complement C4 Miscellaneous Test Crossmatch 12/08/16 12/08/16 12/08/16 05:25 05:30 05:30 WBC 23.8 H RBC 2.88 L Hgb 8.1 L Hct 24.3 L MCV MCH MCHC RDW 16.7 H Plt Count Lymph % (Auto) [place] % (Auto) Lymph # [place] # Baso # Seg Neutrophils % Seg Neuts % (Manual) 76.0 H Lymphocytes % (Manual) 9.0 L Monocytes % (Manual) 9.0 H Eosinophils % (Manual) Basophils % (Manual) Nucleated RBC % Seg Neutrophils # Seg Neutrophils # Man 18.1 H Lymphocytes # (Manual) Monocytes # (Manual) 2.1 H Eosinophils # (Manual) Basophils # (Manual) PT INR Fibrinogen dRVVT Confirm Interp Factor V Activity POC ABG pH POC ABG pCO2 POC ABG pO2 ABG pO2 ABG HCO3 ABG Base Excess ABG Hemoglobin Oxyhemoglobin Sodium Potassium Chloride Carbon Dioxide 21 L BUN 76 H Creatinine 1.6 H Glucose 133 H POC Glucose 177 H Lactic Acid Calcium Ionized Calcium Phosphorus Magnesium Direct Bilirubin AST ALT Alkaline Phosphatase Lactate Dehydrogenase Troponin T C-Reactive Protein Total Protein Albumin Prealbumin Triglycerides Cholesterol LDL Cholesterol Direct HDL Cholesterol 25-OH Vitamin D Total PTH Intact Urine pH Urine WBC (Auto) Urine Creatinine Urine Total Protein Fluid Total Protein Vancomycin Trough Rheumatoid Factor Complement C4 Miscellaneous Test Crossmatch 12/08/16 12/08/16 12/09/16 11:45 18:00 00:00 WBC RBC Hgb Hct MCV MCH MCHC RDW Plt Count Lymph % (Auto) [place] % (Auto) Lymph # [place] # Baso # Seg Neutrophils % Seg Neuts % (Manual) Lymphocytes % (Manual) Monocytes % (Manual) Eosinophils % (Manual) Basophils % (Manual) Nucleated RBC % Seg Neutrophils # Seg Neutrophils # Man Lymphocytes # (Manual) Monocytes # (Manual) Eosinophils # (Manual) Basophils # (Manual) PT INR Fibrinogen dRVVT Confirm Interp Factor V Activity POC ABG pH POC ABG pCO2 POC ABG pO2 ABG pO2 ABG HCO3 ABG Base Excess ABG Hemoglobin Oxyhemoglobin Sodium Potassium Chloride Carbon Dioxide BUN Creatinine Glucose POC Glucose 163 H 123 H 137 H Lactic Acid Calcium Ionized Calcium Phosphorus Magnesium Direct Bilirubin AST ALT Alkaline Phosphatase Lactate Dehydrogenase Troponin T C-Reactive Protein Total Protein Albumin Prealbumin Triglycerides Cholesterol LDL Cholesterol Direct HDL Cholesterol 25-OH Vitamin D Total PTH Intact Urine pH Urine WBC (Auto) Urine Creatinine Urine Total Protein Fluid Total Protein Vancomycin Trough Rheumatoid Factor Complement C4 Miscellaneous Test Crossmatch 12/09/16 12/09/16 12/09/16 05:34 06:00 06:00 WBC 15.5 H RBC 2.87 L Hgb 8.0 L Hct 24.2 L MCV MCH MCHC RDW 17.2 H Plt Count Lymph % (Auto) [place] % (Auto) 11.6 H Lymph # [place] # 1.8 H Baso # Seg Neutrophils % 70.8 H Seg Neuts % (Manual) Lymphocytes % (Manual) Monocytes % (Manual) Eosinophils % (Manual) Basophils % (Manual) Nucleated RBC % Seg Neutrophils # 11.0 H Seg Neutrophils # Man Lymphocytes # (Manual) Monocytes # (Manual) Eosinophils # (Manual) Basophils # (Manual) PT INR Fibrinogen dRVVT Confirm Interp Factor V Activity POC ABG pH POC ABG pCO2 POC ABG pO2 ABG pO2 ABG HCO3 ABG Base Excess ABG Hemoglobin Oxyhemoglobin Sodium Potassium Chloride Carbon Dioxide BUN 51 H Creatinine Glucose 117 H POC Glucose 136 H Lactic Acid Calcium Ionized Calcium Phosphorus Magnesium Direct Bilirubin AST ALT Alkaline Phosphatase Lactate Dehydrogenase Troponin T C-Reactive Protein Total Protein Albumin Prealbumin Triglycerides Cholesterol LDL Cholesterol Direct HDL Cholesterol 25-OH Vitamin D Total PTH Intact Urine pH Urine WBC (Auto) Urine Creatinine Urine Total Protein Fluid Total Protein Vancomycin Trough Rheumatoid Factor Complement C4 Miscellaneous Test Crossmatch 12/09/16 12/09/16 12/09/16 12:29 17:52 23:10 WBC RBC Hgb Hct MCV MCH MCHC RDW Plt Count Lymph % (Auto) [place] % (Auto) Lymph # [place] # Baso # Seg Neutrophils % Seg Neuts % (Manual) Lymphocytes % (Manual) Monocytes % (Manual) Eosinophils % (Manual) Basophils % (Manual) Nucleated RBC % Seg Neutrophils # Seg Neutrophils # Man Lymphocytes # (Manual) Monocytes # (Manual) Eosinophils # (Manual) Basophils # (Manual) PT INR Fibrinogen dRVVT Confirm Interp Factor V Activity POC ABG pH POC ABG pCO2 POC ABG pO2 ABG pO2 ABG HCO3 ABG Base Excess ABG Hemoglobin Oxyhemoglobin Sodium Potassium Chloride Carbon Dioxide BUN Creatinine Glucose POC Glucose 139 H 140 H 129 H Lactic Acid Calcium Ionized Calcium Phosphorus Magnesium Direct Bilirubin AST ALT Alkaline Phosphatase Lactate Dehydrogenase Troponin T C-Reactive Protein Total Protein Albumin Prealbumin Triglycerides Cholesterol LDL Cholesterol Direct HDL Cholesterol 25-OH Vitamin D Total PTH Intact Urine pH Urine WBC (Auto) Urine Creatinine Urine Total Protein Fluid Total Protein Vancomycin Trough Rheumatoid Factor Complement C4 Miscellaneous Test Crossmatch 12/10/16 12/10/16 12/10/16 05:00 05:00 06:54 WBC 15.7 H RBC 2.87 L Hgb 8.2 L Hct 24.4 L MCV MCH MCHC RDW 17.2 H Plt Count Lymph % (Auto) [place] % (Auto) 8.3 H Lymph # [place] # 1.3 H Baso # Seg Neutrophils % 72.8 H Seg Neuts % (Manual) Lymphocytes % (Manual) Monocytes % (Manual) Eosinophils % (Manual) Basophils % (Manual) Nucleated RBC % Seg Neutrophils # 11.4 H Seg Neutrophils # Man Lymphocytes # (Manual) Monocytes # (Manual) Eosinophils # (Manual) Basophils # (Manual) PT INR Fibrinogen dRVVT Confirm Interp Factor V Activity POC ABG pH POC ABG pCO2 POC ABG pO2 ABG pO2 ABG HCO3 ABG Base Excess ABG Hemoglobin Oxyhemoglobin Sodium Potassium Chloride Carbon Dioxide BUN 64 H Creatinine 1.4 H Glucose 134 H POC Glucose 154 H Lactic Acid Calcium Ionized Calcium Phosphorus Magnesium Direct Bilirubin AST ALT Alkaline Phosphatase Lactate Dehydrogenase Troponin T C-Reactive Protein Total Protein Albumin Prealbumin Triglycerides Cholesterol LDL Cholesterol Direct HDL Cholesterol 25-OH Vitamin D Total PTH Intact Urine pH Urine WBC (Auto) Urine Creatinine Urine Total Protein Fluid Total Protein Vancomycin Trough Rheumatoid Factor Complement C4 Miscellaneous Test Crossmatch 12/10/16 12/10/16 12/10/16 11:58 17:29 23:52 WBC RBC Hgb Hct MCV MCH MCHC RDW Plt Count Lymph % (Auto) [place] % (Auto) Lymph # [place] # Baso # Seg Neutrophils % Seg Neuts % (Manual) Lymphocytes % (Manual) Monocytes % (Manual) Eosinophils % (Manual) Basophils % (Manual) Nucleated RBC % Seg Neutrophils # Seg Neutrophils # Man Lymphocytes # (Manual) Monocytes # (Manual) Eosinophils # (Manual) Basophils # (Manual) PT INR Fibrinogen dRVVT Confirm Interp Factor V Activity POC ABG pH POC ABG pCO2 POC ABG pO2 ABG pO2 ABG HCO3 ABG Base Excess ABG Hemoglobin Oxyhemoglobin Sodium Potassium Chloride Carbon Dioxide BUN Creatinine Glucose POC Glucose 144 H 163 H 125 H Lactic Acid Calcium Ionized Calcium Phosphorus Magnesium Direct Bilirubin AST ALT Alkaline Phosphatase Lactate Dehydrogenase Troponin T C-Reactive Protein Total Protein Albumin Prealbumin Triglycerides Cholesterol LDL Cholesterol Direct HDL Cholesterol 25-OH Vitamin D Total PTH Intact Urine pH Urine WBC (Auto) Urine Creatinine Urine Total Protein Fluid Total Protein Vancomycin Trough Rheumatoid Factor Complement C4 Miscellaneous Test Crossmatch 12/11/16 12/11/16 12/11/16 05:38 06:30 06:30 WBC 14.4 H RBC 2.76 L Hgb 7.7 L Hct 23.4 L MCV MCH MCHC RDW 17.2 H Plt Count Lymph % (Auto) [place] % (Auto) 8.8 H Lymph # [place] # 1.3 H Baso # Seg Neutrophils % 72.5 H Seg Neuts % (Manual) Lymphocytes % (Manual) Monocytes % (Manual) Eosinophils % (Manual) Basophils % (Manual) Nucleated RBC % Seg Neutrophils # 10.5 H Seg Neutrophils # Man Lymphocytes # (Manual) Monocytes # (Manual) Eosinophils # (Manual) Basophils # (Manual) PT INR Fibrinogen dRVVT Confirm Interp Factor V Activity POC ABG pH POC ABG pCO2 POC ABG pO2 ABG pO2 ABG HCO3 ABG Base Excess ABG Hemoglobin Oxyhemoglobin Sodium Potassium Chloride Carbon Dioxide BUN 43 H Creatinine Glucose 124 H POC Glucose 141 H Lactic Acid Calcium 8.3 L Ionized Calcium Phosphorus Magnesium 1.60 L Direct Bilirubin AST ALT Alkaline Phosphatase Lactate Dehydrogenase Troponin T C-Reactive Protein Total Protein Albumin Prealbumin Triglycerides Cholesterol LDL Cholesterol Direct HDL Cholesterol 25-OH Vitamin D Total PTH Intact Urine pH Urine WBC (Auto) Urine Creatinine Urine Total Protein Fluid Total Protein Vancomycin Trough Rheumatoid Factor Complement C4 Miscellaneous Test Crossmatch 12/11/16 12/11/16 12/11/16 11:15 17:59 23:48 WBC RBC Hgb Hct MCV MCH MCHC RDW Plt Count Lymph % (Auto) [place] % (Auto) Lymph # [place] # Baso # Seg Neutrophils % Seg Neuts % (Manual) Lymphocytes % (Manual) Monocytes % (Manual) Eosinophils % (Manual) Basophils % (Manual) Nucleated RBC % Seg Neutrophils # Seg Neutrophils # Man Lymphocytes # (Manual) Monocytes # (Manual) Eosinophils # (Manual) Basophils # (Manual) PT INR Fibrinogen dRVVT Confirm Interp Factor V Activity POC ABG pH POC ABG pCO2 POC ABG pO2 ABG pO2 ABG HCO3 ABG Base Excess ABG Hemoglobin Oxyhemoglobin Sodium Potassium Chloride Carbon Dioxide BUN Creatinine Glucose POC Glucose 188 H 106 H 119 H Lactic Acid Calcium Ionized Calcium Phosphorus Magnesium Direct Bilirubin AST ALT Alkaline Phosphatase Lactate Dehydrogenase Troponin T C-Reactive Protein Total Protein Albumin Prealbumin Triglycerides Cholesterol LDL Cholesterol Direct HDL Cholesterol 25-OH Vitamin D Total PTH Intact Urine pH Urine WBC (Auto) Urine Creatinine Urine Total Protein Fluid Total Protein Vancomycin Trough Rheumatoid Factor Complement C4 Miscellaneous Test Crossmatch 12/12/16 12/12/16 12/12/16 05:00 06:01 12:20 WBC 16.7 H RBC 2.87 L Hgb 8.0 L Hct 24.2 L MCV MCH MCHC RDW 17.6 H Plt Count Lymph % (Auto) [place] % (Auto) Lymph # [place] # 1.2 H Baso # Seg Neutrophils % 75.3 H Seg Neuts % (Manual) Lymphocytes % (Manual) Monocytes % (Manual) Eosinophils % (Manual) Basophils % (Manual) Nucleated RBC % Seg Neutrophils # 12.6 H Seg Neutrophils # Man Lymphocytes # (Manual) Monocytes # (Manual) Eosinophils # (Manual) Basophils # (Manual) PT INR Fibrinogen dRVVT Confirm Interp Factor V Activity POC ABG pH POC ABG pCO2 POC ABG pO2 ABG pO2 ABG HCO3 ABG Base Excess ABG Hemoglobin Oxyhemoglobin Sodium Potassium Chloride Carbon Dioxide BUN Creatinine Glucose POC Glucose 134 H 149 H Lactic Acid Calcium Ionized Calcium Phosphorus Magnesium Direct Bilirubin AST ALT Alkaline Phosphatase Lactate Dehydrogenase Troponin T C-Reactive Protein Total Protein Albumin Prealbumin Triglycerides Cholesterol LDL Cholesterol Direct HDL Cholesterol 25-OH Vitamin D Total PTH Intact Urine pH Urine WBC (Auto) Urine Creatinine Urine Total Protein Fluid Total Protein Vancomycin Trough Rheumatoid Factor Complement C4 Miscellaneous Test Crossmatch 12/12/16 12/12/16 12/12/16 17:38 23:01 Unknown WBC RBC Hgb Hct MCV MCH MCHC RDW Plt Count Lymph % (Auto) [place] % (Auto) Lymph # [place] # Baso # Seg Neutrophils % Seg Neuts % (Manual) Lymphocytes % (Manual) Monocytes % (Manual) Eosinophils % (Manual) Basophils % (Manual) Nucleated RBC % Seg Neutrophils # Seg Neutrophils # Man Lymphocytes # (Manual) Monocytes # (Manual) Eosinophils # (Manual) Basophils # (Manual) PT INR Fibrinogen dRVVT Confirm Interp Factor V Activity POC ABG pH POC ABG pCO2 POC ABG pO2 ABG pO2 ABG HCO3 ABG Base Excess ABG Hemoglobin Oxyhemoglobin Sodium Potassium Chloride Carbon Dioxide BUN 60 H Creatinine 1.3 H Glucose 126 H POC Glucose 127 H 144 H Lactic Acid Calcium Ionized Calcium Phosphorus Magnesium Direct Bilirubin AST ALT Alkaline Phosphatase Lactate Dehydrogenase Troponin T C-Reactive Protein Total Protein Albumin Prealbumin Triglycerides Cholesterol LDL Cholesterol Direct HDL Cholesterol 25-OH Vitamin D Total PTH Intact Urine pH Urine WBC (Auto) Urine Creatinine Urine Total Protein Fluid Total Protein Vancomycin Trough Rheumatoid Factor Complement C4 Miscellaneous Test Crossmatch 12/13/16 12/13/16 12/13/16 04:00 04:00 05:19 WBC 18.7 H RBC 2.89 L Hgb 8.3 L Hct 24.6 L MCV MCH MCHC RDW 17.5 H Plt Count Lymph % (Auto) [place] % (Auto) Lymph # [place] # 1.3 H Baso # Seg Neutrophils % 71.5 H Seg Neuts % (Manual) Lymphocytes % (Manual) Monocytes % (Manual) Eosinophils % (Manual) Basophils % (Manual) Nucleated RBC % Seg Neutrophils # 13.4 H Seg Neutrophils # Man Lymphocytes # (Manual) Monocytes # (Manual) Eosinophils # (Manual) Basophils # (Manual) PT INR Fibrinogen dRVVT Confirm Interp Factor V Activity POC ABG pH POC ABG pCO2 POC ABG pO2 ABG pO2 ABG HCO3 ABG Base Excess ABG Hemoglobin Oxyhemoglobin Sodium Potassium Chloride Carbon Dioxide BUN 73 H Creatinine 1.5 H Glucose 141 H POC Glucose 171 H Lactic Acid Calcium Ionized Calcium Phosphorus Magnesium Direct Bilirubin AST ALT Alkaline Phosphatase Lactate Dehydrogenase Troponin T C-Reactive Protein Total Protein Albumin Prealbumin Triglycerides Cholesterol LDL Cholesterol Direct HDL Cholesterol 25-OH Vitamin D Total PTH Intact Urine pH Urine WBC (Auto) Urine Creatinine Urine Total Protein Fluid Total Protein Vancomycin Trough Rheumatoid Factor Complement C4 Miscellaneous Test Crossmatch 12/13/16 12/13/16 12/14/16 12:28 16:48 00:01 WBC RBC Hgb Hct MCV MCH MCHC RDW Plt Count Lymph % (Auto) [place] % (Auto) Lymph # [place] # Baso # Seg Neutrophils % Seg Neuts % (Manual) Lymphocytes % (Manual) Monocytes % (Manual) Eosinophils % (Manual) Basophils % (Manual) Nucleated RBC % Seg Neutrophils # Seg Neutrophils # Man Lymphocytes # (Manual) Monocytes # (Manual) Eosinophils # (Manual) Basophils # (Manual) PT INR Fibrinogen dRVVT Confirm Interp Factor V Activity POC ABG pH POC ABG pCO2 POC ABG pO2 ABG pO2 ABG HCO3 ABG Base Excess ABG Hemoglobin Oxyhemoglobin Sodium Potassium Chloride Carbon Dioxide BUN Creatinine Glucose POC Glucose 206 H 173 H 139 H Lactic Acid Calcium Ionized Calcium Phosphorus Magnesium Direct Bilirubin AST ALT Alkaline Phosphatase Lactate Dehydrogenase Troponin T C-Reactive Protein Total Protein Albumin Prealbumin Triglycerides Cholesterol LDL Cholesterol Direct HDL Cholesterol 25-OH Vitamin D Total PTH Intact Urine pH Urine WBC (Auto) Urine Creatinine Urine Total Protein Fluid Total Protein Vancomycin Trough Rheumatoid Factor Complement C4 Miscellaneous Test Crossmatch 12/14/16 12/14/16 12/14/16 05:16 06:10 11:17 WBC RBC Hgb Hct MCV MCH MCHC RDW Plt Count Lymph % (Auto) [place] % (Auto) Lymph # [place] # Baso # Seg Neutrophils % Seg Neuts % (Manual) Lymphocytes % (Manual) Monocytes % (Manual) Eosinophils % (Manual) Basophils % (Manual) Nucleated RBC % Seg Neutrophils # Seg Neutrophils # Man Lymphocytes # (Manual) Monocytes # (Manual) Eosinophils # (Manual) Basophils # (Manual) PT INR Fibrinogen dRVVT Confirm Interp Factor V Activity POC ABG pH POC ABG pCO2 POC ABG pO2 ABG pO2 ABG HCO3 ABG Base Excess ABG Hemoglobin Oxyhemoglobin Sodium Potassium Chloride Carbon Dioxide BUN 57 H Creatinine 1.4 H Glucose 135 H POC Glucose 158 H 137 H Lactic Acid Calcium Ionized Calcium Phosphorus Magnesium Direct Bilirubin AST ALT Alkaline Phosphatase Lactate Dehydrogenase Troponin T C-Reactive Protein Total Protein Albumin Prealbumin Triglycerides Cholesterol LDL Cholesterol Direct HDL Cholesterol 25-OH Vitamin D Total PTH Intact Urine pH Urine WBC (Auto) Urine Creatinine Urine Total Protein Fluid Total Protein Vancomycin Trough Rheumatoid Factor Complement C4 Miscellaneous Test Crossmatch 12/14/16 12/14/16 12/15/16 17:52 23:27 04:00 WBC RBC Hgb Hct MCV MCH MCHC RDW Plt Count Lymph % (Auto) [place] % (Auto) Lymph # [place] # Baso # Seg Neutrophils % Seg Neuts % (Manual) Lymphocytes % (Manual) Monocytes % (Manual) Eosinophils % (Manual) Basophils % (Manual) Nucleated RBC % Seg Neutrophils # Seg Neutrophils # Man Lymphocytes # (Manual) Monocytes # (Manual) Eosinophils # (Manual) Basophils # (Manual) PT INR Fibrinogen dRVVT Confirm Interp Factor V Activity POC ABG pH POC ABG pCO2 POC ABG pO2 ABG pO2 ABG HCO3 ABG Base Excess ABG Hemoglobin Oxyhemoglobin Sodium Potassium Chloride 97.9 L Carbon Dioxide BUN 75 H Creatinine 1.6 H Glucose 122 H POC Glucose 149 H 163 H Lactic Acid Calcium Ionized Calcium Phosphorus 5.20 H Magnesium Direct Bilirubin AST ALT Alkaline Phosphatase Lactate Dehydrogenase Troponin T C-Reactive Protein Total Protein Albumin Prealbumin Triglycerides Cholesterol LDL Cholesterol Direct HDL Cholesterol 25-OH Vitamin D Total PTH Intact Urine pH Urine WBC (Auto) Urine Creatinine Urine Total Protein Fluid Total Protein Vancomycin Trough Rheumatoid Factor Complement C4 Miscellaneous Test Crossmatch 12/15/16 12/15/16 12/15/16 05:50 11:24 17:01 WBC RBC Hgb Hct MCV MCH MCHC RDW Plt Count Lymph % (Auto) [place] % (Auto) Lymph # [place] # Baso # Seg Neutrophils % Seg Neuts % (Manual) Lymphocytes % (Manual) Monocytes % (Manual) Eosinophils % (Manual) Basophils % (Manual) Nucleated RBC % Seg Neutrophils # Seg Neutrophils # Man Lymphocytes # (Manual) Monocytes # (Manual) Eosinophils # (Manual) Basophils # (Manual) PT INR Fibrinogen dRVVT Confirm Interp Factor V Activity POC ABG pH POC ABG pCO2 POC ABG pO2 ABG pO2 ABG HCO3 ABG Base Excess ABG Hemoglobin Oxyhemoglobin Sodium Potassium Chloride Carbon Dioxide BUN Creatinine Glucose POC Glucose 150 H 146 H 167 H Lactic Acid Calcium Ionized Calcium Phosphorus Magnesium Direct Bilirubin AST ALT Alkaline Phosphatase Lactate Dehydrogenase Troponin T C-Reactive Protein Total Protein Albumin Prealbumin Triglycerides Cholesterol LDL Cholesterol Direct HDL Cholesterol 25-OH Vitamin D Total PTH Intact Urine pH Urine WBC (Auto) Urine Creatinine Urine Total Protein Fluid Total Protein Vancomycin Trough Rheumatoid Factor Complement C4 Miscellaneous Test Crossmatch 12/15/16 12/16/16 12/16/16 23:34 05:25 11:24 WBC RBC Hgb Hct MCV MCH MCHC RDW Plt Count Lymph % (Auto) [place] % (Auto) Lymph # [place] # Baso # Seg Neutrophils % Seg Neuts % (Manual) Lymphocytes % (Manual) Monocytes % (Manual) Eosinophils % (Manual) Basophils % (Manual) Nucleated RBC % Seg Neutrophils # Seg Neutrophils # Man Lymphocytes # (Manual) Monocytes # (Manual) Eosinophils # (Manual) Basophils # (Manual) PT INR Fibrinogen dRVVT Confirm Interp Factor V Activity POC ABG pH POC ABG pCO2 POC ABG pO2 ABG pO2 ABG HCO3 ABG Base Excess ABG Hemoglobin Oxyhemoglobin Sodium Potassium Chloride Carbon Dioxide BUN Creatinine Glucose POC Glucose 127 H 139 H 165 H Lactic Acid Calcium Ionized Calcium Phosphorus Magnesium Direct Bilirubin AST ALT Alkaline Phosphatase Lactate Dehydrogenase Troponin T C-Reactive Protein Total Protein Albumin Prealbumin Triglycerides Cholesterol LDL Cholesterol Direct HDL Cholesterol 25-OH Vitamin D Total PTH Intact Urine pH Urine WBC (Auto) Urine Creatinine Urine Total Protein Fluid Total Protein Vancomycin Trough Rheumatoid Factor Complement C4 Miscellaneous Test Crossmatch 12/16/16 12/16/16 12/16/16 15:30 16:25 17:31 WBC 17.8 H RBC 2.38 L Hgb 6.4 L Hct 20.3 L MCV MCH 27 L MCHC RDW 17.4 H Plt Count Lymph % (Auto) [place] % (Auto) Lymph # [place] # Baso # Seg Neutrophils % Seg Neuts % (Manual) Lymphocytes % (Manual) Monocytes % (Manual) 10.0 H Eosinophils % (Manual) Basophils % (Manual) Nucleated RBC % Seg Neutrophils # Seg Neutrophils # Man 8.5 H Lymphocytes # (Manual) Monocytes # (Manual) 1.8 H Eosinophils # (Manual) Basophils # (Manual) PT INR Fibrinogen dRVVT Confirm Interp Factor V Activity POC ABG pH POC ABG pCO2 POC ABG pO2 ABG pO2 ABG HCO3 ABG Base Excess ABG Hemoglobin Oxyhemoglobin Sodium Potassium Chloride Carbon Dioxide BUN Creatinine Glucose POC Glucose 176 H Lactic Acid Calcium Ionized Calcium Phosphorus Magnesium Direct Bilirubin AST ALT Alkaline Phosphatase Lactate Dehydrogenase Troponin T C-Reactive Protein Total Protein Albumin Prealbumin Triglycerides Cholesterol LDL Cholesterol Direct HDL Cholesterol 25-OH Vitamin D Total PTH Intact Urine pH Urine WBC (Auto) Urine Creatinine Urine Total Protein Fluid Total Protein Vancomycin Trough Rheumatoid Factor Complement C4 Miscellaneous Test Crossmatch See Detail 12/17/16 12/17/16 12/17/16 00:14 04:00 05:00 WBC 20.0 H RBC 2.99 L Hgb 8.5 L Hct 25.7 L MCV MCH MCHC RDW 17.2 H Plt Count Lymph % (Auto) [place] % (Auto) Lymph # [place] # Baso # Seg Neutrophils % Seg Neuts % (Manual) Lymphocytes % (Manual) Monocytes % (Manual) Eosinophils % (Manual) Basophils % (Manual) Nucleated RBC % Seg Neutrophils # Seg Neutrophils # Man Lymphocytes # (Manual) Monocytes # (Manual) Eosinophils # (Manual) Basophils # (Manual) PT INR Fibrinogen dRVVT Confirm Interp Factor V Activity POC ABG pH POC ABG pCO2 POC ABG pO2 ABG pO2 ABG HCO3 ABG Base Excess ABG Hemoglobin Oxyhemoglobin Sodium Potassium Chloride 97.7 L Carbon Dioxide BUN 73 H Creatinine 1.7 H Glucose 136 H POC Glucose 148 H Lactic Acid Calcium Ionized Calcium Phosphorus 2.20 L Magnesium 2.70 H Direct Bilirubin AST ALT Alkaline Phosphatase Lactate Dehydrogenase Troponin T C-Reactive Protein Total Protein Albumin Prealbumin Triglycerides Cholesterol LDL Cholesterol Direct HDL Cholesterol 25-OH Vitamin D Total PTH Intact Urine pH Urine WBC (Auto) Urine Creatinine Urine Total Protein Fluid Total Protein Vancomycin Trough Rheumatoid Factor Complement C4 Miscellaneous Test Crossmatch 12/17/16 12/17/16 12/17/16 05:39 12:50 16:32 WBC RBC Hgb Hct MCV MCH MCHC RDW Plt Count Lymph % (Auto) [place] % (Auto) Lymph # [place] # Baso # Seg Neutrophils % Seg Neuts % (Manual) Lymphocytes % (Manual) Monocytes % (Manual) Eosinophils % (Manual) Basophils % (Manual) Nucleated RBC % Seg Neutrophils # Seg Neutrophils # Man Lymphocytes # (Manual) Monocytes # (Manual) Eosinophils # (Manual) Basophils # (Manual) PT INR Fibrinogen dRVVT Confirm Interp Factor V Activity POC ABG pH POC ABG pCO2 POC ABG pO2 ABG pO2 ABG HCO3 ABG Base Excess ABG Hemoglobin Oxyhemoglobin Sodium Potassium Chloride Carbon Dioxide BUN Creatinine Glucose POC Glucose 162 H 146 H 169 H Lactic Acid Calcium Ionized Calcium Phosphorus Magnesium Direct Bilirubin AST ALT Alkaline Phosphatase Lactate Dehydrogenase Troponin T C-Reactive Protein Total Protein Albumin Prealbumin Triglycerides Cholesterol LDL Cholesterol Direct HDL Cholesterol 25-OH Vitamin D Total PTH Intact Urine pH Urine WBC (Auto) Urine Creatinine Urine Total Protein Fluid Total Protein Vancomycin Trough Rheumatoid Factor Complement C4 Miscellaneous Test Crossmatch 12/17/16 12/18/16 12/18/16 23:57 05:00 05:32 WBC RBC Hgb Hct MCV MCH MCHC RDW Plt Count Lymph % (Auto) [place] % (Auto) Lymph # [place] # Baso # Seg Neutrophils % Seg Neuts % (Manual) Lymphocytes % (Manual) Monocytes % (Manual) Eosinophils % (Manual) Basophils % (Manual) Nucleated RBC % Seg Neutrophils # Seg Neutrophils # Man Lymphocytes # (Manual) Monocytes # (Manual) Eosinophils # (Manual) Basophils # (Manual) PT INR Fibrinogen dRVVT Confirm Interp Factor V Activity POC ABG pH POC ABG pCO2 POC ABG pO2 ABG pO2 ABG HCO3 ABG Base Excess ABG Hemoglobin Oxyhemoglobin Sodium Potassium Chloride 97.0 L Carbon Dioxide BUN 63 H Creatinine 1.4 H Glucose 174 H POC Glucose 145 H 201 H Lactic Acid Calcium Ionized Calcium Phosphorus 1.70 L D Magnesium Direct Bilirubin AST ALT Alkaline Phosphatase 257 H Lactate Dehydrogenase Troponin T C-Reactive Protein Total Protein 5.9 L Albumin 1.8 L Prealbumin Triglycerides Cholesterol LDL Cholesterol Direct HDL Cholesterol 25-OH Vitamin D Total PTH Intact Urine pH Urine WBC (Auto) Urine Creatinine Urine Total Protein Fluid Total Protein Vancomycin Trough Rheumatoid Factor Complement C4 Miscellaneous Test Crossmatch 12/18/16 12/18/16 12/18/16 11:43 16:52 23:52 WBC RBC Hgb Hct MCV MCH MCHC RDW Plt Count Lymph % (Auto) [place] % (Auto) Lymph # [place] # Baso # Seg Neutrophils % Seg Neuts % (Manual) Lymphocytes % (Manual) Monocytes % (Manual) Eosinophils % (Manual) Basophils % (Manual) Nucleated RBC % Seg Neutrophils # Seg Neutrophils # Man Lymphocytes # (Manual) Monocytes # (Manual) Eosinophils # (Manual) Basophils # (Manual) PT INR Fibrinogen dRVVT Confirm Interp Factor V Activity POC ABG pH POC ABG pCO2 POC ABG pO2 ABG pO2 ABG HCO3 ABG Base Excess ABG Hemoglobin Oxyhemoglobin Sodium Potassium Chloride Carbon Dioxide BUN Creatinine Glucose POC Glucose 177 H 110 H 162 H Lactic Acid Calcium Ionized Calcium Phosphorus Magnesium Direct Bilirubin AST ALT Alkaline Phosphatase Lactate Dehydrogenase Troponin T C-Reactive Protein Total Protein Albumin Prealbumin Triglycerides Cholesterol LDL Cholesterol Direct HDL Cholesterol 25-OH Vitamin D Total PTH Intact Urine pH Urine WBC (Auto) Urine Creatinine Urine Total Protein Fluid Total Protein Vancomycin Trough Rheumatoid Factor Complement C4 Miscellaneous Test Crossmatch 12/19/16 12/19/16 12/19/16 05:02 05:24 09:30 WBC 20.1 H RBC 2.73 L Hgb 7.6 L Hct 23.6 L MCV MCH MCHC RDW 17.6 H Plt Count Lymph % (Auto) [place] % (Auto) Lymph # [place] # Baso # Seg Neutrophils % Seg Neuts % (Manual) Lymphocytes % (Manual) 13.0 L Monocytes % (Manual) Eosinophils % (Manual) Basophils % (Manual) Nucleated RBC % 1.0 H Seg Neutrophils # Seg Neutrophils # Man 12.9 H Lymphocytes # (Manual) Monocytes # (Manual) 1.4 H Eosinophils # (Manual) Basophils # (Manual) 0.2 H PT INR Fibrinogen dRVVT Confirm Interp Factor V Activity POC ABG pH POC ABG pCO2 POC ABG pO2 ABG pO2 ABG HCO3 ABG Base Excess ABG Hemoglobin Oxyhemoglobin Sodium Potassium Chloride 97.8 L Carbon Dioxide BUN 84 H Creatinine 1.6 H Glucose 133 H POC Glucose 134 H Lactic Acid Calcium Ionized Calcium Phosphorus Magnesium Direct Bilirubin AST ALT Alkaline Phosphatase Lactate Dehydrogenase Troponin T C-Reactive Protein Total Protein Albumin Prealbumin Triglycerides Cholesterol LDL Cholesterol Direct HDL Cholesterol 25-OH Vitamin D Total PTH Intact Urine pH Urine WBC (Auto) Urine Creatinine Urine Total Protein Fluid Total Protein Vancomycin Trough Rheumatoid Factor Complement C4 Miscellaneous Test Crossmatch 12/19/16 12/19/16 12/19/16 09:36 11:12 18:29 WBC RBC Hgb Hct MCV MCH MCHC RDW Plt Count Lymph % (Auto) [place] % (Auto) Lymph # [place] # Baso # Seg Neutrophils % Seg Neuts % (Manual) Lymphocytes % (Manual) Monocytes % (Manual) Eosinophils % (Manual) Basophils % (Manual) Nucleated RBC % Seg Neutrophils # Seg Neutrophils # Man Lymphocytes # (Manual) Monocytes # (Manual) Eosinophils # (Manual) Basophils # (Manual) PT INR Fibrinogen dRVVT Confirm Interp Factor V Activity POC ABG pH 7.503 H POC ABG pCO2 30.1 L POC ABG pO2 ABG pO2 ABG HCO3 ABG Base Excess ABG Hemoglobin Oxyhemoglobin Sodium Potassium Chloride Carbon Dioxide BUN Creatinine Glucose POC Glucose 138 H 156 H Lactic Acid Calcium Ionized Calcium Phosphorus Magnesium Direct Bilirubin AST ALT Alkaline Phosphatase Lactate Dehydrogenase Troponin T C-Reactive Protein Total Protein Albumin Prealbumin Triglycerides Cholesterol LDL Cholesterol Direct HDL Cholesterol 25-OH Vitamin D Total PTH Intact Urine pH Urine WBC (Auto) Urine Creatinine Urine Total Protein Fluid Total Protein Vancomycin Trough Rheumatoid Factor Complement C4 Miscellaneous Test Crossmatch 12/20/16 12/20/16 12/20/16 00:03 06:17 07:07 WBC RBC Hgb Hct MCV MCH MCHC RDW Plt Count Lymph % (Auto) [place] % (Auto) Lymph # [place] # Baso # Seg Neutrophils % Seg Neuts % (Manual) Lymphocytes % (Manual) Monocytes % (Manual) Eosinophils % (Manual) Basophils % (Manual) Nucleated RBC % Seg Neutrophils # Seg Neutrophils # Man Lymphocytes # (Manual) Monocytes # (Manual) Eosinophils # (Manual) Basophils # (Manual) PT INR Fibrinogen dRVVT Confirm Interp Factor V Activity POC ABG pH POC ABG pCO2 POC ABG pO2 ABG pO2 ABG HCO3 ABG Base Excess ABG Hemoglobin Oxyhemoglobin Sodium Potassium Chloride 97.1 L Carbon Dioxide 20 L BUN 97 H Creatinine 1.8 H Glucose 153 H POC Glucose 152 H 175 H Lactic Acid Calcium Ionized Calcium Phosphorus Magnesium Direct Bilirubin AST ALT Alkaline Phosphatase Lactate Dehydrogenase Troponin T C-Reactive Protein Total Protein Albumin Prealbumin Triglycerides Cholesterol LDL Cholesterol Direct HDL Cholesterol 25-OH Vitamin D Total PTH Intact Urine pH Urine WBC (Auto) Urine Creatinine Urine Total Protein Fluid Total Protein Vancomycin Trough Rheumatoid Factor Complement C4 Miscellaneous Test Crossmatch 12/20/16 12/20/16 12/20/16 12:00 17:42 23:53 WBC RBC Hgb Hct MCV MCH MCHC RDW Plt Count Lymph % (Auto) [place] % (Auto) Lymph # [place] # Baso # Seg Neutrophils % Seg Neuts % (Manual) Lymphocytes % (Manual) Monocytes % (Manual) Eosinophils % (Manual) Basophils % (Manual) Nucleated RBC % Seg Neutrophils # Seg Neutrophils # Man Lymphocytes # (Manual) Monocytes # (Manual) Eosinophils # (Manual) Basophils # (Manual) PT INR Fibrinogen dRVVT Confirm Interp Factor V Activity POC ABG pH POC ABG pCO2 POC ABG pO2 ABG pO2 ABG HCO3 ABG Base Excess ABG Hemoglobin Oxyhemoglobin Sodium Potassium Chloride Carbon Dioxide BUN Creatinine Glucose POC Glucose 141 H 156 H 132 H Lactic Acid Calcium Ionized Calcium Phosphorus Magnesium Direct Bilirubin AST ALT Alkaline Phosphatase Lactate Dehydrogenase Troponin T C-Reactive Protein Total Protein Albumin Prealbumin Triglycerides Cholesterol LDL Cholesterol Direct HDL Cholesterol 25-OH Vitamin D Total PTH Intact Urine pH Urine WBC (Auto) Urine Creatinine Urine Total Protein Fluid Total Protein Vancomycin Trough Rheumatoid Factor Complement C4 Miscellaneous Test Crossmatch 12/21/16 12/21/16 12/21/16 05:49 08:50 12:19 WBC RBC Hgb Hct MCV MCH MCHC RDW Plt Count Lymph % (Auto) [place] % (Auto) Lymph # [place] # Baso # Seg Neutrophils % Seg Neuts % (Manual) Lymphocytes % (Manual) Monocytes % (Manual) Eosinophils % (Manual) Basophils % (Manual) Nucleated RBC % Seg Neutrophils # Seg Neutrophils # Man Lymphocytes # (Manual) Monocytes # (Manual) Eosinophils # (Manual) Basophils # (Manual) PT INR Fibrinogen dRVVT Confirm Interp Factor V Activity POC ABG pH POC ABG pCO2 POC ABG pO2 ABG pO2 ABG HCO3 ABG Base Excess ABG Hemoglobin Oxyhemoglobin Sodium Potassium 5.2 H D Chloride Carbon Dioxide BUN 63 H Creatinine Glucose 122 H POC Glucose 132 H 136 H Lactic Acid Calcium 8.3 L Ionized Calcium Phosphorus Magnesium Direct Bilirubin AST ALT Alkaline Phosphatase Lactate Dehydrogenase Troponin T C-Reactive Protein Total Protein Albumin Prealbumin Triglycerides Cholesterol LDL Cholesterol Direct HDL Cholesterol 25-OH Vitamin D Total PTH Intact Urine pH Urine WBC (Auto) Urine Creatinine Urine Total Protein Fluid Total Protein Vancomycin Trough Rheumatoid Factor Complement C4 Miscellaneous Test Crossmatch 12/21/16 12/21/16 12/22/16 17:22 23:58 05:49 WBC RBC Hgb Hct MCV MCH MCHC RDW Plt Count Lymph % (Auto) [place] % (Auto) Lymph # [place] # Baso # Seg Neutrophils % Seg Neuts % (Manual) Lymphocytes % (Manual) Monocytes % (Manual) Eosinophils % (Manual) Basophils % (Manual) Nucleated RBC % Seg Neutrophils # Seg Neutrophils # Man Lymphocytes # (Manual) Monocytes # (Manual) Eosinophils # (Manual) Basophils # (Manual) PT INR Fibrinogen dRVVT Confirm Interp Factor V Activity POC ABG pH POC ABG pCO2 POC ABG pO2 ABG pO2 ABG HCO3 ABG Base Excess ABG Hemoglobin Oxyhemoglobin Sodium Potassium Chloride Carbon Dioxide BUN Creatinine Glucose POC Glucose 135 H 149 H 140 H Lactic Acid Calcium Ionized Calcium Phosphorus Magnesium Direct Bilirubin AST ALT Alkaline Phosphatase Lactate Dehydrogenase Troponin T C-Reactive Protein Total Protein Albumin Prealbumin Triglycerides Cholesterol LDL Cholesterol Direct HDL Cholesterol 25-OH Vitamin D Total PTH Intact Urine pH Urine WBC (Auto) Urine Creatinine Urine Total Protein Fluid Total Protein Vancomycin Trough Rheumatoid Factor Complement C4 Miscellaneous Test Crossmatch 12/22/16 12/22/16 12/22/16 06:10 11:17 17:31 WBC RBC Hgb Hct MCV MCH MCHC RDW Plt Count Lymph % (Auto) [place] % (Auto) Lymph # [place] # Baso # Seg Neutrophils % Seg Neuts % (Manual) Lymphocytes % (Manual) Monocytes % (Manual) Eosinophils % (Manual) Basophils % (Manual) Nucleated RBC % Seg Neutrophils # Seg Neutrophils # Man Lymphocytes # (Manual) Monocytes # (Manual) Eosinophils # (Manual) Basophils # (Manual) PT INR Fibrinogen dRVVT Confirm Interp Factor V Activity POC ABG pH POC ABG pCO2 POC ABG pO2 ABG pO2 ABG HCO3 ABG Base Excess ABG Hemoglobin Oxyhemoglobin Sodium Potassium Chloride Carbon Dioxide BUN 76 H Creatinine 1.5 H Glucose 241 H POC Glucose 193 H 148 H Lactic Acid Calcium Ionized Calcium Phosphorus Magnesium Direct Bilirubin AST ALT Alkaline Phosphatase Lactate Dehydrogenase Troponin T C-Reactive Protein Total Protein Albumin Prealbumin Triglycerides Cholesterol LDL Cholesterol Direct HDL Cholesterol 25-OH Vitamin D Total PTH Intact Urine pH Urine WBC (Auto) Urine Creatinine Urine Total Protein Fluid Total Protein Vancomycin Trough Rheumatoid Factor Complement C4 Miscellaneous Test Crossmatch 12/22/16 12/23/16 12/23/16 23:58 05:00 05:26 WBC RBC Hgb Hct MCV MCH MCHC RDW Plt Count Lymph % (Auto) [place] % (Auto) Lymph # [place] # Baso # Seg Neutrophils % Seg Neuts % (Manual) Lymphocytes % (Manual) Monocytes % (Manual) Eosinophils % (Manual) Basophils % (Manual) Nucleated RBC % Seg Neutrophils # Seg Neutrophils # Man Lymphocytes # (Manual) Monocytes # (Manual) Eosinophils # (Manual) Basophils # (Manual) PT INR Fibrinogen dRVVT Confirm Interp Factor V Activity POC ABG pH POC ABG pCO2 POC ABG pO2 ABG pO2 ABG HCO3 ABG Base Excess ABG Hemoglobin Oxyhemoglobin Sodium Potassium Chloride Carbon Dioxide BUN 49 H Creatinine Glucose 143 H POC Glucose 165 H 154 H Lactic Acid Calcium 8.2 L Ionized Calcium Phosphorus Magnesium 1.60 L Direct Bilirubin AST ALT Alkaline Phosphatase Lactate Dehydrogenase Troponin T C-Reactive Protein Total Protein Albumin Prealbumin Triglycerides Cholesterol LDL Cholesterol Direct HDL Cholesterol 25-OH Vitamin D Total PTH Intact Urine pH Urine WBC (Auto) Urine Creatinine Urine Total Protein Fluid Total Protein Vancomycin Trough Rheumatoid Factor Complement C4 Miscellaneous Test Crossmatch 12/23/16 12/23/16 12/24/16 12:35 17:01 00:01 WBC RBC Hgb Hct MCV MCH MCHC RDW Plt Count Lymph % (Auto) [place] % (Auto) Lymph # [place] # Baso # Seg Neutrophils % Seg Neuts % (Manual) Lymphocytes % (Manual) Monocytes % (Manual) Eosinophils % (Manual) Basophils % (Manual) Nucleated RBC % Seg Neutrophils # Seg Neutrophils # Man Lymphocytes # (Manual) Monocytes # (Manual) Eosinophils # (Manual) Basophils # (Manual) PT INR Fibrinogen dRVVT Confirm Interp Factor V Activity POC ABG pH POC ABG pCO2 POC ABG pO2 ABG pO2 ABG HCO3 ABG Base Excess ABG Hemoglobin Oxyhemoglobin Sodium Potassium Chloride Carbon Dioxide BUN Creatinine Glucose POC Glucose 164 H 149 H 135 H Lactic Acid Calcium Ionized Calcium Phosphorus Magnesium Direct Bilirubin AST ALT Alkaline Phosphatase Lactate Dehydrogenase Troponin T C-Reactive Protein Total Protein Albumin Prealbumin Triglycerides Cholesterol LDL Cholesterol Direct HDL Cholesterol 25-OH Vitamin D Total PTH Intact Urine pH Urine WBC (Auto) Urine Creatinine Urine Total Protein Fluid Total Protein Vancomycin Trough Rheumatoid Factor Complement C4 Miscellaneous Test Crossmatch 12/24/16 12/24/16 12/24/16 05:41 07:01 11:38 WBC RBC Hgb Hct MCV MCH MCHC RDW Plt Count Lymph % (Auto) [place] % (Auto) Lymph # [place] # Baso # Seg Neutrophils % Seg Neuts % (Manual) Lymphocytes % (Manual) Monocytes % (Manual) Eosinophils % (Manual) Basophils % (Manual) Nucleated RBC % Seg Neutrophils # Seg Neutrophils # Man Lymphocytes # (Manual) Monocytes # (Manual) Eosinophils # (Manual) Basophils # (Manual) PT INR Fibrinogen dRVVT Confirm Interp Factor V Activity POC ABG pH POC ABG pCO2 POC ABG pO2 ABG pO2 ABG HCO3 ABG Base Excess ABG Hemoglobin Oxyhemoglobin Sodium Potassium Chloride Carbon Dioxide BUN 72 H Creatinine 1.3 H Glucose 130 H POC Glucose 132 H 156 H Lactic Acid Calcium 8.2 L Ionized Calcium Phosphorus Magnesium Direct Bilirubin AST ALT Alkaline Phosphatase Lactate Dehydrogenase Troponin T C-Reactive Protein Total Protein Albumin Prealbumin Triglycerides Cholesterol LDL Cholesterol Direct HDL Cholesterol 25-OH Vitamin D Total PTH Intact Urine pH Urine WBC (Auto) Urine Creatinine Urine Total Protein Fluid Total Protein Vancomycin Trough Rheumatoid Factor Complement C4 Miscellaneous Test Crossmatch 12/24/16 12/25/16 12/25/16 17:53 00:23 05:45 WBC RBC Hgb Hct MCV MCH MCHC RDW Plt Count Lymph % (Auto) [place] % (Auto) Lymph # [place] # Baso # Seg Neutrophils % Seg Neuts % (Manual) Lymphocytes % (Manual) Monocytes % (Manual) Eosinophils % (Manual) Basophils % (Manual) Nucleated RBC % Seg Neutrophils # Seg Neutrophils # Man Lymphocytes # (Manual) Monocytes # (Manual) Eosinophils # (Manual) Basophils # (Manual) PT INR Fibrinogen dRVVT Confirm Interp Factor V Activity POC ABG pH POC ABG pCO2 POC ABG pO2 ABG pO2 ABG HCO3 ABG Base Excess ABG Hemoglobin Oxyhemoglobin Sodium 146 H Potassium Chloride Carbon Dioxide BUN 51 H Creatinine Glucose 109 H POC Glucose 169 H 117 H Lactic Acid Calcium Ionized Calcium Phosphorus Magnesium Direct Bilirubin AST ALT Alkaline Phosphatase Lactate Dehydrogenase Troponin T C-Reactive Protein Total Protein Albumin Prealbumin Triglycerides Cholesterol LDL Cholesterol Direct HDL Cholesterol 25-OH Vitamin D Total PTH Intact Urine pH Urine WBC (Auto) Urine Creatinine Urine Total Protein Fluid Total Protein Vancomycin Trough Rheumatoid Factor Complement C4 Miscellaneous Test Crossmatch 12/25/16 12/25/16 12/25/16 06:43 11:29 17:14 WBC RBC Hgb Hct MCV MCH MCHC RDW Plt Count Lymph % (Auto) [place] % (Auto) Lymph # [place] # Baso # Seg Neutrophils % Seg Neuts % (Manual) Lymphocytes % (Manual) Monocytes % (Manual) Eosinophils % (Manual) Basophils % (Manual) Nucleated RBC % Seg Neutrophils # Seg Neutrophils # Man Lymphocytes # (Manual) Monocytes # (Manual) Eosinophils # (Manual) Basophils # (Manual) PT INR Fibrinogen dRVVT Confirm Interp Factor V Activity POC ABG pH POC ABG pCO2 POC ABG pO2 ABG pO2 ABG HCO3 ABG Base Excess ABG Hemoglobin Oxyhemoglobin Sodium Potassium Chloride Carbon Dioxide BUN Creatinine Glucose POC Glucose 117 H 128 H 120 H Lactic Acid Calcium Ionized Calcium Phosphorus Magnesium Direct Bilirubin AST ALT Alkaline Phosphatase Lactate Dehydrogenase Troponin T C-Reactive Protein Total Protein Albumin Prealbumin Triglycerides Cholesterol LDL Cholesterol Direct HDL Cholesterol 25-OH Vitamin D Total PTH Intact Urine pH Urine WBC (Auto) Urine Creatinine Urine Total Protein Fluid Total Protein Vancomycin Trough Rheumatoid Factor Complement C4 Miscellaneous Test Crossmatch 12/25/16 12/26/16 12/26/16 23:54 05:40 05:50 WBC 16.2 H RBC 2.32 L Hgb 6.2 L Hct 20.1 L MCV MCH 27 L MCHC RDW 18.6 H Plt Count Lymph % (Auto) [place] % (Auto) Lymph # [place] # Baso # Seg Neutrophils % Seg Neuts % (Manual) Lymphocytes % (Manual) Monocytes % (Manual) Eosinophils % (Manual) Basophils % (Manual) Nucleated RBC % Seg Neutrophils # Seg Neutrophils # Man Lymphocytes # (Manual) Monocytes # (Manual) Eosinophils # (Manual) Basophils # (Manual) PT INR Fibrinogen dRVVT Confirm Interp Factor V Activity POC ABG pH POC ABG pCO2 POC ABG pO2 ABG pO2 ABG HCO3 ABG Base Excess ABG Hemoglobin Oxyhemoglobin Sodium Potassium Chloride Carbon Dioxide BUN Creatinine Glucose POC Glucose 126 H 132 H Lactic Acid Calcium Ionized Calcium Phosphorus Magnesium Direct Bilirubin AST ALT Alkaline Phosphatase Lactate Dehydrogenase Troponin T C-Reactive Protein Total Protein Albumin Prealbumin Triglycerides Cholesterol LDL Cholesterol Direct HDL Cholesterol 25-OH Vitamin D Total PTH Intact Urine pH Urine WBC (Auto) Urine Creatinine Urine Total Protein Fluid Total Protein Vancomycin Trough Rheumatoid Factor Complement C4 Miscellaneous Test Crossmatch 12/26/16 12/26/16 12/26/16 05:50 12:17 12:33 WBC RBC Hgb Hct MCV MCH MCHC RDW Plt Count Lymph % (Auto) [place] % (Auto) Lymph # [place] # Baso # Seg Neutrophils % Seg Neuts % (Manual) Lymphocytes % (Manual) Monocytes % (Manual) Eosinophils % (Manual) Basophils % (Manual) Nucleated RBC % Seg Neutrophils # Seg Neutrophils # Man Lymphocytes # (Manual) Monocytes # (Manual) Eosinophils # (Manual) Basophils # (Manual) PT INR Fibrinogen dRVVT Confirm Interp Factor V Activity POC ABG pH POC ABG pCO2 POC ABG pO2 ABG pO2 ABG HCO3 ABG Base Excess ABG Hemoglobin Oxyhemoglobin Sodium Potassium Chloride Carbon Dioxide BUN 73 H Creatinine 1.3 H Glucose 113 H POC Glucose 117 H Lactic Acid Calcium Ionized Calcium Phosphorus Magnesium Direct Bilirubin AST ALT Alkaline Phosphatase Lactate Dehydrogenase Troponin T C-Reactive Protein Total Protein Albumin Prealbumin Triglycerides Cholesterol LDL Cholesterol Direct HDL Cholesterol 25-OH Vitamin D Total PTH Intact Urine pH Urine WBC (Auto) Urine Creatinine Urine Total Protein Fluid Total Protein Vancomycin Trough Rheumatoid Factor Complement C4 Miscellaneous Test Crossmatch See Detail 12/26/16 12/26/16 12/27/16 20:00 23:21 05:00 WBC RBC Hgb 8.4 L Hct 26.3 L D MCV MCH MCHC RDW Plt Count Lymph % (Auto) [place] % (Auto) Lymph # [place] # Baso # Seg Neutrophils % Seg Neuts % (Manual) Lymphocytes % (Manual) Monocytes % (Manual) Eosinophils % (Manual) Basophils % (Manual) Nucleated RBC % Seg Neutrophils # Seg Neutrophils # Man Lymphocytes # (Manual) Monocytes # (Manual) Eosinophils # (Manual) Basophils # (Manual) PT INR Fibrinogen dRVVT Confirm Interp Factor V Activity POC ABG pH POC ABG pCO2 POC ABG pO2 ABG pO2 ABG HCO3 ABG Base Excess ABG Hemoglobin Oxyhemoglobin Sodium Potassium Chloride Carbon Dioxide BUN 85 H Creatinine 1.6 H Glucose 118 H POC Glucose 124 H Lactic Acid Calcium Ionized Calcium Phosphorus 4.80 H Magnesium Direct Bilirubin AST ALT Alkaline Phosphatase Lactate Dehydrogenase Troponin T C-Reactive Protein Total Protein Albumin Prealbumin Triglycerides Cholesterol LDL Cholesterol Direct HDL Cholesterol 25-OH Vitamin D Total PTH Intact Urine pH Urine WBC (Auto) Urine Creatinine Urine Total Protein Fluid Total Protein Vancomycin Trough Rheumatoid Factor Complement C4 Miscellaneous Test Crossmatch 12/27/16 12/27/16 12/27/16 05:00 05:35 12:24 WBC RBC Hgb 7.6 L Hct 22.8 L MCV MCH MCHC RDW Plt Count Lymph % (Auto) [place] % (Auto) Lymph # [place] # Baso # Seg Neutrophils % Seg Neuts % (Manual) Lymphocytes % (Manual) Monocytes % (Manual) Eosinophils % (Manual) Basophils % (Manual) Nucleated RBC % Seg Neutrophils # Seg Neutrophils # Man Lymphocytes # (Manual) Monocytes # (Manual) Eosinophils # (Manual) Basophils # (Manual) PT INR Fibrinogen dRVVT Confirm Interp Factor V Activity POC ABG pH POC ABG pCO2 POC ABG pO2 ABG pO2 ABG HCO3 ABG Base Excess ABG Hemoglobin Oxyhemoglobin Sodium Potassium Chloride Carbon Dioxide BUN Creatinine Glucose POC Glucose 115 H 131 H Lactic Acid Calcium Ionized Calcium Phosphorus Magnesium Direct Bilirubin AST ALT Alkaline Phosphatase Lactate Dehydrogenase Troponin T C-Reactive Protein Total Protein Albumin Prealbumin Triglycerides Cholesterol LDL Cholesterol Direct HDL Cholesterol 25-OH Vitamin D Total PTH Intact Urine pH Urine WBC (Auto) Urine Creatinine Urine Total Protein Fluid Total Protein Vancomycin Trough Rheumatoid Factor Complement C4 Miscellaneous Test Crossmatch 12/27/16 12/28/16 12/28/16 17:16 00:18 04:00 WBC RBC Hgb Hct MCV MCH MCHC RDW Plt Count Lymph % (Auto) [place] % (Auto) Lymph # [place] # Baso # Seg Neutrophils % Seg Neuts % (Manual) Lymphocytes % (Manual) Monocytes % (Manual) Eosinophils % (Manual) Basophils % (Manual) Nucleated RBC % Seg Neutrophils # Seg Neutrophils # Man Lymphocytes # (Manual) Monocytes # (Manual) Eosinophils # (Manual) Basophils # (Manual) PT INR Fibrinogen dRVVT Confirm Interp Factor V Activity POC ABG pH POC ABG pCO2 POC ABG pO2 ABG pO2 ABG HCO3 ABG Base Excess ABG Hemoglobin Oxyhemoglobin Sodium Potassium 3.5 L Chloride Carbon Dioxide BUN 57 H Creatinine Glucose 118 H POC Glucose 136 H 120 H Lactic Acid Calcium 8.3 L Ionized Calcium Phosphorus Magnesium Direct Bilirubin AST ALT Alkaline Phosphatase Lactate Dehydrogenase Troponin T C-Reactive Protein Total Protein Albumin Prealbumin Triglycerides Cholesterol LDL Cholesterol Direct HDL Cholesterol 25-OH Vitamin D Total PTH Intact Urine pH Urine WBC (Auto) Urine Creatinine Urine Total Protein Fluid Total Protein Vancomycin Trough Rheumatoid Factor Complement C4 Miscellaneous Test Crossmatch 12/28/16 12/28/16 12/28/16 04:00 05:11 08:30 WBC 17.0 H RBC 2.58 L Hgb 7.1 L Hct 22.0 L MCV MCH MCHC RDW 17.6 H Plt Count Lymph % (Auto) 12.2 L [place] % (Auto) Lymph # [place] # 1.1 H Baso # Seg Neutrophils % 80.5 H Seg Neuts % (Manual) Lymphocytes % (Manual) Monocytes % (Manual) Eosinophils % (Manual) Basophils % (Manual) Nucleated RBC % Seg Neutrophils # 13.7 H Seg Neutrophils # Man Lymphocytes # (Manual) Monocytes # (Manual) Eosinophils # (Manual) Basophils # (Manual) PT 16.1 H INR 1.23 H Fibrinogen dRVVT Confirm Interp Factor V Activity POC ABG pH POC ABG pCO2 POC ABG pO2 ABG pO2 ABG HCO3 ABG Base Excess ABG Hemoglobin Oxyhemoglobin Sodium Potassium Chloride Carbon Dioxide BUN Creatinine Glucose POC Glucose 122 H Lactic Acid Calcium Ionized Calcium Phosphorus Magnesium Direct Bilirubin AST ALT Alkaline Phosphatase Lactate Dehydrogenase Troponin T C-Reactive Protein Total Protein Albumin Prealbumin Triglycerides Cholesterol LDL Cholesterol Direct HDL Cholesterol 25-OH Vitamin D Total PTH Intact Urine pH Urine WBC (Auto) Urine Creatinine Urine Total Protein Fluid Total Protein Vancomycin Trough Rheumatoid Factor Complement C4 Miscellaneous Test Crossmatch 12/28/16 12/28/16 12/28/16 12:27 16:32 23:46 WBC RBC Hgb Hct MCV MCH MCHC RDW Plt Count Lymph % (Auto) [place] % (Auto) Lymph # [place] # Baso # Seg Neutrophils % Seg Neuts % (Manual) Lymphocytes % (Manual) Monocytes % (Manual) Eosinophils % (Manual) Basophils % (Manual) Nucleated RBC % Seg Neutrophils # Seg Neutrophils # Man Lymphocytes # (Manual) Monocytes # (Manual) Eosinophils # (Manual) Basophils # (Manual) PT INR Fibrinogen dRVVT Confirm Interp Factor V Activity POC ABG pH POC ABG pCO2 POC ABG pO2 ABG pO2 ABG HCO3 ABG Base Excess ABG Hemoglobin Oxyhemoglobin Sodium Potassium Chloride Carbon Dioxide BUN Creatinine Glucose POC Glucose 127 H 117 H 108 H Lactic Acid Calcium Ionized Calcium Phosphorus Magnesium Direct Bilirubin AST ALT Alkaline Phosphatase Lactate Dehydrogenase Troponin T C-Reactive Protein Total Protein Albumin Prealbumin Triglycerides Cholesterol LDL Cholesterol Direct HDL Cholesterol 25-OH Vitamin D Total PTH Intact Urine pH Urine WBC (Auto) Urine Creatinine Urine Total Protein Fluid Total Protein Vancomycin Trough Rheumatoid Factor Complement C4 Miscellaneous Test Crossmatch 12/29/16 12/29/16 12/29/16 05:15 05:15 05:32 WBC RBC Hgb Hct MCV MCH MCHC RDW Plt Count Lymph % (Auto) [place] % (Auto) Lymph # [place] # Baso # Seg Neutrophils % Seg Neuts % (Manual) Lymphocytes % (Manual) Monocytes % (Manual) Eosinophils % (Manual) Basophils % (Manual) Nucleated RBC % Seg Neutrophils # Seg Neutrophils # Man Lymphocytes # (Manual) Monocytes # (Manual) Eosinophils # (Manual) Basophils # (Manual) PT INR Fibrinogen dRVVT Confirm Interp Factor V Activity POC ABG pH POC ABG pCO2 POC ABG pO2 ABG pO2 ABG HCO3 ABG Base Excess ABG Hemoglobin Oxyhemoglobin Sodium Potassium Chloride Carbon Dioxide BUN 74 H Creatinine 1.6 H Glucose 111 H POC Glucose 123 H Lactic Acid Calcium Ionized Calcium Phosphorus Magnesium Direct Bilirubin AST ALT Alkaline Phosphatase Lactate Dehydrogenase Troponin T C-Reactive Protein Total Protein Albumin Prealbumin 0.110 L Triglycerides Cholesterol LDL Cholesterol Direct HDL Cholesterol 25-OH Vitamin D Total PTH Intact Urine pH Urine WBC (Auto) Urine Creatinine Urine Total Protein Fluid Total Protein Vancomycin Trough Rheumatoid Factor Complement C4 Miscellaneous Test Crossmatch 12/29/16 12/29/16 12/29/16 11:43 13:45 14:00 WBC 13.8 H RBC 2.26 L Hgb 6.3 L Hct 20.4 L MCV MCH MCHC RDW 18.3 H Plt Count Lymph % (Auto) [place] % (Auto) Lymph # [place] # 0.9 H Baso # Seg Neutrophils % 78.6 H Seg Neuts % (Manual) Lymphocytes % (Manual) Monocytes % (Manual) Eosinophils % (Manual) Basophils % (Manual) Nucleated RBC % Seg Neutrophils # 10.8 H Seg Neutrophils # Man Lymphocytes # (Manual) Monocytes # (Manual) Eosinophils # (Manual) Basophils # (Manual) PT INR Fibrinogen dRVVT Confirm Interp Factor V Activity POC ABG pH POC ABG pCO2 POC ABG pO2 ABG pO2 ABG HCO3 ABG Base Excess ABG Hemoglobin Oxyhemoglobin Sodium Potassium Chloride Carbon Dioxide BUN Creatinine Glucose POC Glucose 133 H Lactic Acid Calcium Ionized Calcium Phosphorus Magnesium Direct Bilirubin AST ALT Alkaline Phosphatase Lactate Dehydrogenase Troponin T C-Reactive Protein Total Protein Albumin Prealbumin Triglycerides Cholesterol LDL Cholesterol Direct HDL Cholesterol 25-OH Vitamin D Total PTH Intact Urine pH Urine WBC (Auto) Urine Creatinine Urine Total Protein Fluid Total Protein Vancomycin Trough Rheumatoid Factor Complement C4 Miscellaneous Test Crossmatch See Detail 12/29/16 12/29/16 12/29/16 17:03 23:15 23:22 WBC RBC Hgb 7.3 L Hct 22.3 L MCV MCH MCHC RDW Plt Count Lymph % (Auto) [place] % (Auto) Lymph # [place] # Baso # Seg Neutrophils % Seg Neuts % (Manual) Lymphocytes % (Manual) Monocytes % (Manual) Eosinophils % (Manual) Basophils % (Manual) Nucleated RBC % Seg Neutrophils # Seg Neutrophils # Man Lymphocytes # (Manual) Monocytes # (Manual) Eosinophils # (Manual) Basophils # (Manual) PT INR Fibrinogen dRVVT Confirm Interp Factor V Activity POC ABG pH POC ABG pCO2 POC ABG pO2 ABG pO2 ABG HCO3 ABG Base Excess ABG Hemoglobin Oxyhemoglobin Sodium Potassium Chloride Carbon Dioxide BUN Creatinine Glucose POC Glucose 139 H 120 H Lactic Acid Calcium Ionized Calcium Phosphorus Magnesium Direct Bilirubin AST ALT Alkaline Phosphatase Lactate Dehydrogenase Troponin T C-Reactive Protein Total Protein Albumin Prealbumin Triglycerides Cholesterol LDL Cholesterol Direct HDL Cholesterol 25-OH Vitamin D Total PTH Intact Urine pH Urine WBC (Auto) Urine Creatinine Urine Total Protein Fluid Total Protein Vancomycin Trough Rheumatoid Factor Complement C4 Miscellaneous Test Crossmatch 12/30/16 12/30/16 12/30/16 04:20 04:20 05:43 WBC 15.6 H RBC 2.81 L Hgb 8.0 L Hct 24.0 L MCV MCH MCHC RDW 16.9 H Plt Count Lymph % (Auto) [place] % (Auto) Lymph # [place] # 1.0 H Baso # Seg Neutrophils % 76.2 H Seg Neuts % (Manual) Lymphocytes % (Manual) Monocytes % (Manual) Eosinophils % (Manual) Basophils % (Manual) Nucleated RBC % Seg Neutrophils # 11.9 H Seg Neutrophils # Man Lymphocytes # (Manual) Monocytes # (Manual) Eosinophils # (Manual) Basophils # (Manual) PT INR Fibrinogen dRVVT Confirm Interp Factor V Activity POC ABG pH POC ABG pCO2 POC ABG pO2 ABG pO2 ABG HCO3 ABG Base Excess ABG Hemoglobin Oxyhemoglobin Sodium Potassium Chloride Carbon Dioxide BUN 87 H Creatinine 1.8 H Glucose 119 H POC Glucose 115 H Lactic Acid Calcium Ionized Calcium Phosphorus Magnesium Direct Bilirubin AST ALT Alkaline Phosphatase Lactate Dehydrogenase Troponin T C-Reactive Protein Total Protein Albumin Prealbumin Triglycerides Cholesterol LDL Cholesterol Direct HDL Cholesterol 25-OH Vitamin D Total PTH Intact Urine pH Urine WBC (Auto) Urine Creatinine Urine Total Protein Fluid Total Protein Vancomycin Trough Rheumatoid Factor Complement C4 Miscellaneous Test Crossmatch 12/30/16 12/30/16 12/31/16 17:27 23:21 04:00 WBC RBC Hgb Hct MCV MCH MCHC RDW Plt Count Lymph % (Auto) [place] % (Auto) Lymph # [place] # Baso # Seg Neutrophils % Seg Neuts % (Manual) Lymphocytes % (Manual) Monocytes % (Manual) Eosinophils % (Manual) Basophils % (Manual) Nucleated RBC % Seg Neutrophils # Seg Neutrophils # Man Lymphocytes # (Manual) Monocytes # (Manual) Eosinophils # (Manual) Basophils # (Manual) PT INR Fibrinogen dRVVT Confirm Interp Factor V Activity POC ABG pH POC ABG pCO2 POC ABG pO2 ABG pO2 ABG HCO3 ABG Base Excess ABG Hemoglobin Oxyhemoglobin Sodium Potassium Chloride Carbon Dioxide BUN 59 H Creatinine Glucose 298 H POC Glucose 144 H 125 H Lactic Acid Calcium Ionized Calcium Phosphorus Magnesium Direct Bilirubin AST ALT Alkaline Phosphatase Lactate Dehydrogenase Troponin T C-Reactive Protein Total Protein Albumin Prealbumin Triglycerides Cholesterol LDL Cholesterol Direct HDL Cholesterol 25-OH Vitamin D Total PTH Intact Urine pH Urine WBC (Auto) Urine Creatinine Urine Total Protein Fluid Total Protein Vancomycin Trough Rheumatoid Factor Complement C4 Miscellaneous Test Crossmatch 12/31/16 12/31/16 12/31/16 05:11 12:18 18:17 WBC RBC Hgb Hct MCV MCH MCHC RDW Plt Count Lymph % (Auto) [place] % (Auto) Lymph # [place] # Baso # Seg Neutrophils % Seg Neuts % (Manual) Lymphocytes % (Manual) Monocytes % (Manual) Eosinophils % (Manual) Basophils % (Manual) Nucleated RBC % Seg Neutrophils # Seg Neutrophils # Man Lymphocytes # (Manual) Monocytes # (Manual) Eosinophils # (Manual) Basophils # (Manual) PT INR Fibrinogen dRVVT Confirm Interp Factor V Activity POC ABG pH POC ABG pCO2 POC ABG pO2 ABG pO2 ABG HCO3 ABG Base Excess ABG Hemoglobin Oxyhemoglobin Sodium Potassium Chloride Carbon Dioxide BUN Creatinine Glucose POC Glucose 167 H 125 H 133 H Lactic Acid Calcium Ionized Calcium Phosphorus Magnesium Direct Bilirubin AST ALT Alkaline Phosphatase Lactate Dehydrogenase Troponin T C-Reactive Protein Total Protein Albumin Prealbumin Triglycerides Cholesterol LDL Cholesterol Direct HDL Cholesterol 25-OH Vitamin D Total PTH Intact Urine pH Urine WBC (Auto) Urine Creatinine Urine Total Protein Fluid Total Protein Vancomycin Trough Rheumatoid Factor Complement C4 Miscellaneous Test Crossmatch 12/31/16 01/01/17 01/01/17 23:55 05:00 05:12 WBC RBC Hgb Hct MCV MCH MCHC RDW Plt Count Lymph % (Auto) [place] % (Auto) Lymph # [place] # Baso # Seg Neutrophils % Seg Neuts % (Manual) Lymphocytes % (Manual) Monocytes % (Manual) Eosinophils % (Manual) Basophils % (Manual) Nucleated RBC % Seg Neutrophils # Seg Neutrophils # Man Lymphocytes # (Manual) Monocytes # (Manual) Eosinophils # (Manual) Basophils # (Manual) PT INR Fibrinogen dRVVT Confirm Interp Factor V Activity POC ABG pH POC ABG pCO2 POC ABG pO2 ABG pO2 ABG HCO3 ABG Base Excess ABG Hemoglobin Oxyhemoglobin Sodium Potassium Chloride Carbon Dioxide BUN 76 H Creatinine 1.5 H Glucose 109 H POC Glucose 129 H 129 H Lactic Acid Calcium Ionized Calcium Phosphorus Magnesium Direct Bilirubin AST ALT Alkaline Phosphatase 536 H Lactate Dehydrogenase Troponin T C-Reactive Protein Total Protein Albumin 1.5 L Prealbumin Triglycerides Cholesterol LDL Cholesterol Direct HDL Cholesterol 25-OH Vitamin D Total PTH Intact Urine pH Urine WBC (Auto) Urine Creatinine Urine Total Protein Fluid Total Protein Vancomycin Trough Rheumatoid Factor Complement C4 Miscellaneous Test Crossmatch 01/01/17 01/01/17 01/01/17 12:25 17:01 23:32 WBC RBC Hgb Hct MCV MCH MCHC RDW Plt Count Lymph % (Auto) [place] % (Auto) Lymph # [place] # Baso # Seg Neutrophils % Seg Neuts % (Manual) Lymphocytes % (Manual) Monocytes % (Manual) Eosinophils % (Manual) Basophils % (Manual) Nucleated RBC % Seg Neutrophils # Seg Neutrophils # Man Lymphocytes # (Manual) Monocytes # (Manual) Eosinophils # (Manual) Basophils # (Manual) PT INR Fibrinogen dRVVT Confirm Interp Factor V Activity POC ABG pH POC ABG pCO2 POC ABG pO2 ABG pO2 ABG HCO3 ABG Base Excess ABG Hemoglobin Oxyhemoglobin Sodium Potassium Chloride Carbon Dioxide BUN Creatinine Glucose POC Glucose 140 H 142 H 112 H Lactic Acid Calcium Ionized Calcium Phosphorus Magnesium Direct Bilirubin AST ALT Alkaline Phosphatase Lactate Dehydrogenase Troponin T C-Reactive Protein Total Protein Albumin Prealbumin Triglycerides Cholesterol LDL Cholesterol Direct HDL Cholesterol 25-OH Vitamin D Total PTH Intact Urine pH Urine WBC (Auto) Urine Creatinine Urine Total Protein Fluid Total Protein Vancomycin Trough Rheumatoid Factor Complement C4 Miscellaneous Test Crossmatch 01/02/17 01/02/17 01/02/17 04:56 06:00 11:37 WBC RBC Hgb Hct MCV MCH MCHC RDW Plt Count Lymph % (Auto) [place] % (Auto) Lymph # [place] # Baso # Seg Neutrophils % Seg Neuts % (Manual) Lymphocytes % (Manual) Monocytes % (Manual) Eosinophils % (Manual) Basophils % (Manual) Nucleated RBC % Seg Neutrophils # Seg Neutrophils # Man Lymphocytes # (Manual) Monocytes # (Manual) Eosinophils # (Manual) Basophils # (Manual) PT INR Fibrinogen dRVVT Confirm Interp Factor V Activity POC ABG pH POC ABG pCO2 POC ABG pO2 ABG pO2 ABG HCO3 ABG Base Excess ABG Hemoglobin Oxyhemoglobin Sodium Potassium Chloride Carbon Dioxide BUN 88 H Creatinine 1.7 H Glucose 113 H POC Glucose 136 H 200 H Lactic Acid Calcium Ionized Calcium Phosphorus Magnesium Direct Bilirubin AST ALT Alkaline Phosphatase Lactate Dehydrogenase Troponin T C-Reactive Protein Total Protein Albumin Prealbumin Triglycerides Cholesterol LDL Cholesterol Direct HDL Cholesterol 25-OH Vitamin D Total PTH Intact Urine pH Urine WBC (Auto) Urine Creatinine Urine Total Protein Fluid Total Protein Vancomycin Trough Rheumatoid Factor Complement C4 Miscellaneous Test Crossmatch 01/02/17 01/02/17 01/03/17 17:42 22:52 04:54 WBC RBC Hgb Hct MCV MCH MCHC RDW Plt Count Lymph % (Auto) [place] % (Auto) Lymph # [place] # Baso # Seg Neutrophils % Seg Neuts % (Manual) Lymphocytes % (Manual) Monocytes % (Manual) Eosinophils % (Manual) Basophils % (Manual) Nucleated RBC % Seg Neutrophils # Seg Neutrophils # Man Lymphocytes # (Manual) Monocytes # (Manual) Eosinophils # (Manual) Basophils # (Manual) PT INR Fibrinogen dRVVT Confirm Interp Factor V Activity POC ABG pH POC ABG pCO2 POC ABG pO2 ABG pO2 ABG HCO3 ABG Base Excess ABG Hemoglobin Oxyhemoglobin Sodium Potassium Chloride Carbon Dioxide BUN Creatinine Glucose POC Glucose 112 H 133 H 111 H Lactic Acid Calcium Ionized Calcium Phosphorus Magnesium Direct Bilirubin AST ALT Alkaline Phosphatase Lactate Dehydrogenase Troponin T C-Reactive Protein Total Protein Albumin Prealbumin Triglycerides Cholesterol LDL Cholesterol Direct HDL Cholesterol 25-OH Vitamin D Total PTH Intact Urine pH Urine WBC (Auto) Urine Creatinine Urine Total Protein Fluid Total Protein Vancomycin Trough Rheumatoid Factor Complement C4 Miscellaneous Test Crossmatch 01/03/17 01/03/17 01/03/17 05:00 05:00 14:02 WBC 11.2 H RBC 2.56 L Hgb 7.2 L Hct 22.3 L MCV MCH MCHC RDW 17.3 H Plt Count Lymph % (Auto) [place] % (Auto) 10.0 H Lymph # [place] # 1.1 H Baso # Seg Neutrophils % 70.5 H Seg Neuts % (Manual) Lymphocytes % (Manual) Monocytes % (Manual) Eosinophils % (Manual) Basophils % (Manual) Nucleated RBC % Seg Neutrophils # 7.9 H Seg Neutrophils # Man Lymphocytes # (Manual) Monocytes # (Manual) Eosinophils # (Manual) Basophils # (Manual) PT INR Fibrinogen dRVVT Confirm Interp Factor V Activity POC ABG pH POC ABG pCO2 POC ABG pO2 ABG pO2 ABG HCO3 ABG Base Excess ABG Hemoglobin Oxyhemoglobin Sodium Potassium Chloride Carbon Dioxide BUN 60 H Creatinine 1.3 H Glucose 110 H POC Glucose 119 H Lactic Acid Calcium Ionized Calcium Phosphorus Magnesium Direct Bilirubin AST ALT Alkaline Phosphatase Lactate Dehydrogenase Troponin T C-Reactive Protein Total Protein Albumin Prealbumin Triglycerides Cholesterol LDL Cholesterol Direct HDL Cholesterol 25-OH Vitamin D Total PTH Intact Urine pH Urine WBC (Auto) Urine Creatinine Urine Total Protein Fluid Total Protein Vancomycin Trough Rheumatoid Factor Complement C4 Miscellaneous Test Crossmatch 01/03/17 01/03/17 01/04/17 18:13 23:40 05:57 WBC RBC Hgb Hct MCV MCH MCHC RDW Plt Count Lymph % (Auto) [place] % (Auto) Lymph # [place] # Baso # Seg Neutrophils % Seg Neuts % (Manual) Lymphocytes % (Manual) Monocytes % (Manual) Eosinophils % (Manual) Basophils % (Manual) Nucleated RBC % Seg Neutrophils # Seg Neutrophils # Man Lymphocytes # (Manual) Monocytes # (Manual) Eosinophils # (Manual) Basophils # (Manual) PT INR Fibrinogen dRVVT Confirm Interp Factor V Activity POC ABG pH POC ABG pCO2 POC ABG pO2 ABG pO2 ABG HCO3 ABG Base Excess ABG Hemoglobin Oxyhemoglobin Sodium Potassium Chloride Carbon Dioxide BUN Creatinine Glucose POC Glucose 107 H 129 H 111 H Lactic Acid Calcium Ionized Calcium Phosphorus Magnesium Direct Bilirubin AST ALT Alkaline Phosphatase Lactate Dehydrogenase Troponin T C-Reactive Protein Total Protein Albumin Prealbumin Triglycerides Cholesterol LDL Cholesterol Direct HDL Cholesterol 25-OH Vitamin D Total PTH Intact Urine pH Urine WBC (Auto) Urine Creatinine Urine Total Protein Fluid Total Protein Vancomycin Trough Rheumatoid Factor Complement C4 Miscellaneous Test Crossmatch 01/04/17 01/04/17 01/04/17 12:46 15:27 17:11 WBC RBC Hgb Hct MCV MCH MCHC RDW Plt Count Lymph % (Auto) [place] % (Auto) Lymph # [place] # Baso # Seg Neutrophils % Seg Neuts % (Manual) Lymphocytes % (Manual) Monocytes % (Manual) Eosinophils % (Manual) Basophils % (Manual) Nucleated RBC % Seg Neutrophils # Seg Neutrophils # Man Lymphocytes # (Manual) Monocytes # (Manual) Eosinophils # (Manual) Basophils # (Manual) PT INR Fibrinogen dRVVT Confirm Interp Factor V Activity POC ABG pH POC ABG pCO2 POC ABG pO2 ABG pO2 ABG HCO3 ABG Base Excess ABG Hemoglobin Oxyhemoglobin Sodium Potassium Chloride Carbon Dioxide BUN 43 H Creatinine Glucose 124 H POC Glucose 159 H 125 H Lactic Acid Calcium 8.0 L Ionized Calcium Phosphorus 2.10 L Magnesium Direct Bilirubin AST ALT Alkaline Phosphatase Lactate Dehydrogenase Troponin T C-Reactive Protein Total Protein Albumin Prealbumin Triglycerides Cholesterol LDL Cholesterol Direct HDL Cholesterol 25-OH Vitamin D Total PTH Intact Urine pH Urine WBC (Auto) Urine Creatinine Urine Total Protein Fluid Total Protein Vancomycin Trough Rheumatoid Factor Complement C4 Miscellaneous Test Crossmatch 01/04/17 01/05/17 01/05/17 23:31 04:00 05:46 WBC RBC Hgb Hct MCV MCH MCHC RDW Plt Count Lymph % (Auto) [place] % (Auto) Lymph # [place] # Baso # Seg Neutrophils % Seg Neuts % (Manual) Lymphocytes % (Manual) Monocytes % (Manual) Eosinophils % (Manual) Basophils % (Manual) Nucleated RBC % Seg Neutrophils # Seg Neutrophils # Man Lymphocytes # (Manual) Monocytes # (Manual) Eosinophils # (Manual) Basophils # (Manual) PT INR Fibrinogen dRVVT Confirm Interp Factor V Activity POC ABG pH POC ABG pCO2 POC ABG pO2 ABG pO2 ABG HCO3 ABG Base Excess ABG Hemoglobin Oxyhemoglobin Sodium Potassium Chloride Carbon Dioxide BUN 52 H Creatinine 1.3 H Glucose 113 H POC Glucose 123 H 118 H Lactic Acid Calcium Ionized Calcium Phosphorus 2.40 L Magnesium Direct Bilirubin AST ALT Alkaline Phosphatase Lactate Dehydrogenase Troponin T C-Reactive Protein Total Protein Albumin Prealbumin Triglycerides Cholesterol LDL Cholesterol Direct HDL Cholesterol 25-OH Vitamin D Total PTH Intact Urine pH Urine WBC (Auto) Urine Creatinine Urine Total Protein Fluid Total Protein Vancomycin Trough Rheumatoid Factor Complement C4 Miscellaneous Test Crossmatch 01/05/17 01/05/17 01/05/17 11:41 17:48 23:27 WBC RBC Hgb Hct MCV MCH MCHC RDW Plt Count Lymph % (Auto) [place] % (Auto) Lymph # [place] # Baso # Seg Neutrophils % Seg Neuts % (Manual) Lymphocytes % (Manual) Monocytes % (Manual) Eosinophils % (Manual) Basophils % (Manual) Nucleated RBC % Seg Neutrophils # Seg Neutrophils # Man Lymphocytes # (Manual) Monocytes # (Manual) Eosinophils # (Manual) Basophils # (Manual) PT INR Fibrinogen dRVVT Confirm Interp Factor V Activity POC ABG pH POC ABG pCO2 POC ABG pO2 ABG pO2 ABG HCO3 ABG Base Excess ABG Hemoglobin Oxyhemoglobin Sodium Potassium Chloride Carbon Dioxide BUN Creatinine Glucose POC Glucose 163 H 142 H 155 H Lactic Acid Calcium Ionized Calcium Phosphorus Magnesium Direct Bilirubin AST ALT Alkaline Phosphatase Lactate Dehydrogenase Troponin T C-Reactive Protein Total Protein Albumin Prealbumin Triglycerides Cholesterol LDL Cholesterol Direct HDL Cholesterol 25-OH Vitamin D Total PTH Intact Urine pH Urine WBC (Auto) Urine Creatinine Urine Total Protein Fluid Total Protein Vancomycin Trough Rheumatoid Factor Complement C4 Miscellaneous Test Crossmatch 01/06/17 01/06/17 01/06/17 05:20 07:35 11:18 WBC RBC Hgb Hct MCV MCH MCHC RDW Plt Count Lymph % (Auto) [place] % (Auto) Lymph # [place] # Baso # Seg Neutrophils % Seg Neuts % (Manual) Lymphocytes % (Manual) Monocytes % (Manual) Eosinophils % (Manual) Basophils % (Manual) Nucleated RBC % Seg Neutrophils # Seg Neutrophils # Man Lymphocytes # (Manual) Monocytes # (Manual) Eosinophils # (Manual) Basophils # (Manual) PT INR Fibrinogen dRVVT Confirm Interp Factor V Activity POC ABG pH POC ABG pCO2 POC ABG pO2 ABG pO2 ABG HCO3 ABG Base Excess ABG Hemoglobin Oxyhemoglobin Sodium Potassium Chloride Carbon Dioxide BUN 74 H Creatinine 1.6 H Glucose 135 H POC Glucose 108 H 149 H Lactic Acid Calcium Ionized Calcium Phosphorus Magnesium Direct Bilirubin AST ALT Alkaline Phosphatase Lactate Dehydrogenase Troponin T C-Reactive Protein Total Protein Albumin Prealbumin Triglycerides Cholesterol LDL Cholesterol Direct HDL Cholesterol 25-OH Vitamin D Total PTH Intact Urine pH Urine WBC (Auto) Urine Creatinine Urine Total Protein Fluid Total Protein Vancomycin Trough Rheumatoid Factor Complement C4 Miscellaneous Test Crossmatch 01/06/17 01/07/17 01/07/17 17:17 00:23 05:31 WBC RBC Hgb Hct MCV MCH MCHC RDW Plt Count Lymph % (Auto) [place] % (Auto) Lymph # [place] # Baso # Seg Neutrophils % Seg Neuts % (Manual) Lymphocytes % (Manual) Monocytes % (Manual) Eosinophils % (Manual) Basophils % (Manual) Nucleated RBC % Seg Neutrophils # Seg Neutrophils # Man Lymphocytes # (Manual) Monocytes # (Manual) Eosinophils # (Manual) Basophils # (Manual) PT INR Fibrinogen dRVVT Confirm Interp Factor V Activity POC ABG pH POC ABG pCO2 POC ABG pO2 ABG pO2 ABG HCO3 ABG Base Excess ABG Hemoglobin Oxyhemoglobin Sodium Potassium Chloride Carbon Dioxide BUN Creatinine Glucose POC Glucose 146 H 165 H 153 H Lactic Acid Calcium Ionized Calcium Phosphorus Magnesium Direct Bilirubin AST ALT Alkaline Phosphatase Lactate Dehydrogenase Troponin T C-Reactive Protein Total Protein Albumin Prealbumin Triglycerides Cholesterol LDL Cholesterol Direct HDL Cholesterol 25-OH Vitamin D Total PTH Intact Urine pH Urine WBC (Auto) Urine Creatinine Urine Total Protein Fluid Total Protein Vancomycin Trough Rheumatoid Factor Complement C4 Miscellaneous Test Crossmatch 01/07/17 01/07/17 01/07/17 06:00 11:39 17:11 WBC RBC Hgb Hct MCV MCH MCHC RDW Plt Count Lymph % (Auto) [place] % (Auto) Lymph # [place] # Baso # Seg Neutrophils % Seg Neuts % (Manual) Lymphocytes % (Manual) Monocytes % (Manual) Eosinophils % (Manual) Basophils % (Manual) Nucleated RBC % Seg Neutrophils # Seg Neutrophils # Man Lymphocytes # (Manual) Monocytes # (Manual) Eosinophils # (Manual) Basophils # (Manual) PT INR Fibrinogen dRVVT Confirm Interp Factor V Activity POC ABG pH POC ABG pCO2 POC ABG pO2 ABG pO2 ABG HCO3 ABG Base Excess ABG Hemoglobin Oxyhemoglobin Sodium Potassium Chloride Carbon Dioxide BUN 42 H Creatinine Glucose 175 H POC Glucose 163 H 163 H Lactic Acid Calcium Ionized Calcium Phosphorus 2.40 L D Magnesium Direct Bilirubin AST ALT Alkaline Phosphatase Lactate Dehydrogenase Troponin T C-Reactive Protein Total Protein Albumin Prealbumin Triglycerides Cholesterol LDL Cholesterol Direct HDL Cholesterol 25-OH Vitamin D Total PTH Intact Urine pH Urine WBC (Auto) Urine Creatinine Urine Total Protein Fluid Total Protein Vancomycin Trough Rheumatoid Factor Complement C4 Miscellaneous Test Crossmatch 01/07/17 01/08/17 01/08/17 23:40 05:00 05:00 WBC 27.4 H RBC 2.27 L Hgb 6.1 L Hct 20.4 L MCV MCH 27 L MCHC RDW 17.8 H Plt Count Lymph % (Auto) [place] % (Auto) Lymph # [place] # Baso # Seg Neutrophils % Seg Neuts % (Manual) Lymphocytes % (Manual) Monocytes % (Manual) Eosinophils % (Manual) Basophils % (Manual) Nucleated RBC % Seg Neutrophils # Seg Neutrophils # Man Lymphocytes # (Manual) Monocytes # (Manual) Eosinophils # (Manual) Basophils # (Manual) PT INR Fibrinogen dRVVT Confirm Interp Factor V Activity POC ABG pH POC ABG pCO2 POC ABG pO2 ABG pO2 ABG HCO3 ABG Base Excess ABG Hemoglobin Oxyhemoglobin Sodium Potassium Chloride Carbon Dioxide 16 L D BUN 62 H Creatinine 1.6 H D Glucose 103 H POC Glucose 135 H Lactic Acid Calcium Ionized Calcium Phosphorus Magnesium Direct Bilirubin AST ALT Alkaline Phosphatase Lactate Dehydrogenase Troponin T C-Reactive Protein Total Protein Albumin Prealbumin Triglycerides Cholesterol LDL Cholesterol Direct HDL Cholesterol 25-OH Vitamin D Total PTH Intact Urine pH Urine WBC (Auto) Urine Creatinine Urine Total Protein Fluid Total Protein Vancomycin Trough Rheumatoid Factor Complement C4 Miscellaneous Test Crossmatch 01/08/17 01/08/17 01/08/17 05:25 10:37 10:37 WBC RBC Hgb Hct MCV MCH MCHC RDW Plt Count Lymph % (Auto) [place] % (Auto) Lymph # [place] # Baso # Seg Neutrophils % Seg Neuts % (Manual) Lymphocytes % (Manual) Monocytes % (Manual) Eosinophils % (Manual) Basophils % (Manual) Nucleated RBC % Seg Neutrophils # Seg Neutrophils # Man Lymphocytes # (Manual) Monocytes # (Manual) Eosinophils # (Manual) Basophils # (Manual) PT INR Fibrinogen dRVVT Confirm Interp Factor V Activity POC ABG pH POC ABG pCO2 POC ABG pO2 ABG pO2 ABG HCO3 ABG Base Excess ABG Hemoglobin Oxyhemoglobin Sodium Potassium Chloride Carbon Dioxide BUN Creatinine Glucose POC Glucose 106 H Lactic Acid Calcium Ionized Calcium Phosphorus Magnesium Direct Bilirubin AST ALT Alkaline Phosphatase Lactate Dehydrogenase Troponin T C-Reactive Protein 24.40 H Total Protein Albumin Prealbumin Triglycerides Cholesterol LDL Cholesterol Direct HDL Cholesterol 25-OH Vitamin D Total PTH Intact Urine pH Urine WBC (Auto) Urine Creatinine Urine Total Protein Fluid Total Protein Vancomycin Trough Rheumatoid Factor Complement C4 Miscellaneous Test Crossmatch See Detail 01/08/17 01/08/17 01/08/17 10:37 11:33 15:15 WBC RBC Hgb Hct MCV MCH MCHC RDW Plt Count Lymph % (Auto) [place] % (Auto) Lymph # [place] # Baso # Seg Neutrophils % Seg Neuts % (Manual) Lymphocytes % (Manual) Monocytes % (Manual) Eosinophils % (Manual) Basophils % (Manual) Nucleated RBC % Seg Neutrophils # Seg Neutrophils # Man Lymphocytes # (Manual) Monocytes # (Manual) Eosinophils # (Manual) Basophils # (Manual) PT INR Fibrinogen dRVVT Confirm Interp Factor V Activity POC ABG pH POC ABG pCO2 POC ABG pO2 ABG pO2 ABG HCO3 ABG Base Excess ABG Hemoglobin Oxyhemoglobin Sodium Potassium Chloride Carbon Dioxide BUN Creatinine Glucose POC Glucose 157 H Lactic Acid 9.70 H* 9.10 H* Calcium Ionized Calcium Phosphorus Magnesium Direct Bilirubin AST ALT Alkaline Phosphatase Lactate Dehydrogenase Troponin T C-Reactive Protein Total Protein Albumin Prealbumin Triglycerides Cholesterol LDL Cholesterol Direct HDL Cholesterol 25-OH Vitamin D Total PTH Intact Urine pH Urine WBC (Auto) Urine Creatinine Urine Total Protein Fluid Total Protein Vancomycin Trough Rheumatoid Factor Complement C4 Miscellaneous Test Crossmatch 01/08/17 01/08/17 01/09/17 17:19 23:12 04:40 WBC RBC Hgb Hct MCV MCH MCHC RDW Plt Count Lymph % (Auto) [place] % (Auto) Lymph # [place] # Baso # Seg Neutrophils % Seg Neuts % (Manual) Lymphocytes % (Manual) Monocytes % (Manual) Eosinophils % (Manual) Basophils % (Manual) Nucleated RBC % Seg Neutrophils # Seg Neutrophils # Man Lymphocytes # (Manual) Monocytes # (Manual) Eosinophils # (Manual) Basophils # (Manual) PT INR Fibrinogen dRVVT Confirm Interp Factor V Activity POC ABG pH POC ABG pCO2 POC ABG pO2 ABG pO2 ABG HCO3 ABG Base Excess ABG Hemoglobin Oxyhemoglobin Sodium 147 H Potassium Chloride Carbon Dioxide BUN 82 H Creatinine 1.8 H Glucose 137 H POC Glucose 164 H 157 H Lactic Acid Calcium Ionized Calcium Phosphorus Magnesium Direct Bilirubin AST ALT Alkaline Phosphatase Lactate Dehydrogenase Troponin T C-Reactive Protein Total Protein Albumin Prealbumin Triglycerides Cholesterol LDL Cholesterol Direct HDL Cholesterol 25-OH Vitamin D Total PTH Intact Urine pH Urine WBC (Auto) Urine Creatinine Urine Total Protein Fluid Total Protein Vancomycin Trough Rheumatoid Factor Complement C4 Miscellaneous Test Crossmatch 01/09/17 01/09/17 01/09/17 05:42 08:22 10:57 WBC RBC Hgb Hct MCV MCH MCHC RDW Plt Count Lymph % (Auto) [place] % (Auto) Lymph # [place] # Baso # Seg Neutrophils % Seg Neuts % (Manual) Lymphocytes % (Manual) Monocytes % (Manual) Eosinophils % (Manual) Basophils % (Manual) Nucleated RBC % Seg Neutrophils # Seg Neutrophils # Man Lymphocytes # (Manual) Monocytes # (Manual) Eosinophils # (Manual) Basophils # (Manual) PT INR Fibrinogen dRVVT Confirm Interp Factor V Activity POC ABG pH POC ABG pCO2 POC ABG pO2 ABG pO2 ABG HCO3 ABG Base Excess ABG Hemoglobin Oxyhemoglobin Sodium Potassium Chloride Carbon Dioxide BUN Creatinine Glucose POC Glucose 156 H 122 H Lactic Acid 2.30 H* Calcium Ionized Calcium Phosphorus Magnesium Direct Bilirubin AST ALT Alkaline Phosphatase Lactate Dehydrogenase Troponin T C-Reactive Protein Total Protein Albumin Prealbumin Triglycerides Cholesterol LDL Cholesterol Direct HDL Cholesterol 25-OH Vitamin D Total PTH Intact Urine pH Urine WBC (Auto) Urine Creatinine Urine Total Protein Fluid Total Protein Vancomycin Trough Rheumatoid Factor Complement C4 Miscellaneous Test Crossmatch 01/09/17 01/09/17 01/09/17 13:30 17:14 18:45 WBC RBC Hgb Hct MCV MCH MCHC RDW Plt Count Lymph % (Auto) [place] % (Auto) Lymph # [place] # Baso # Seg Neutrophils % Seg Neuts % (Manual) Lymphocytes % (Manual) Monocytes % (Manual) Eosinophils % (Manual) Basophils % (Manual) Nucleated RBC % Seg Neutrophils # Seg Neutrophils # Man Lymphocytes # (Manual) Monocytes # (Manual) Eosinophils # (Manual) Basophils # (Manual) PT INR Fibrinogen dRVVT Confirm Interp Factor V Activity POC ABG pH POC ABG pCO2 POC ABG pO2 ABG pO2 ABG HCO3 ABG Base Excess ABG Hemoglobin Oxyhemoglobin Sodium Potassium Chloride Carbon Dioxide BUN Creatinine Glucose POC Glucose 127 H Lactic Acid Calcium Ionized Calcium Phosphorus Magnesium Direct Bilirubin AST ALT Alkaline Phosphatase Lactate Dehydrogenase Troponin T C-Reactive Protein 24.70 H Total Protein Albumin Prealbumin Triglycerides Cholesterol LDL Cholesterol Direct HDL Cholesterol 25-OH Vitamin D Total PTH Intact Urine pH Urine WBC (Auto) Urine Creatinine Urine Total Protein Fluid Total Protein Vancomycin Trough Rheumatoid Factor Complement C4 Miscellaneous Test Flexitest 1 H Crossmatch 01/10/17 01/10/17 01/10/17 01:21 04:00 04:00 WBC 18.1 H RBC 3.22 L Hgb 8.8 L Hct 27.0 L D MCV MCH 27 L MCHC RDW 17.0 H Plt Count Lymph % (Auto) [place] % (Auto) Lymph # [place] # Baso # Seg Neutrophils % Seg Neuts % (Manual) Lymphocytes % (Manual) Monocytes % (Manual) Eosinophils % (Manual) Basophils % (Manual) Nucleated RBC % Seg Neutrophils # Seg Neutrophils # Man Lymphocytes # (Manual) Monocytes # (Manual) Eosinophils # (Manual) Basophils # (Manual) PT INR Fibrinogen dRVVT Confirm Interp Factor V Activity POC ABG pH POC ABG pCO2 POC ABG pO2 ABG pO2 ABG HCO3 ABG Base Excess ABG Hemoglobin Oxyhemoglobin Sodium Potassium Chloride Carbon Dioxide BUN 59 H Creatinine 1.3 H Glucose 122 H POC Glucose 160 H Lactic Acid Calcium Ionized Calcium Phosphorus Magnesium Direct Bilirubin AST ALT Alkaline Phosphatase Lactate Dehydrogenase Troponin T C-Reactive Protein Total Protein Albumin Prealbumin Triglycerides Cholesterol LDL Cholesterol Direct HDL Cholesterol 25-OH Vitamin D Total PTH Intact Urine pH Urine WBC (Auto) Urine Creatinine Urine Total Protein Fluid Total Protein Vancomycin Trough Rheumatoid Factor Complement C4 Miscellaneous Test Crossmatch 01/10/17 01/10/17 01/10/17 05:36 12:14 17:55 WBC RBC Hgb Hct MCV MCH MCHC RDW Plt Count Lymph % (Auto) [place] % (Auto) Lymph # [place] # Baso # Seg Neutrophils % Seg Neuts % (Manual) Lymphocytes % (Manual) Monocytes % (Manual) Eosinophils % (Manual) Basophils % (Manual) Nucleated RBC % Seg Neutrophils # Seg Neutrophils # Man Lymphocytes # (Manual) Monocytes # (Manual) Eosinophils # (Manual) Basophils # (Manual) PT INR Fibrinogen dRVVT Confirm Interp Factor V Activity POC ABG pH POC ABG pCO2 POC ABG pO2 ABG pO2 ABG HCO3 ABG Base Excess ABG Hemoglobin Oxyhemoglobin Sodium Potassium Chloride Carbon Dioxide BUN Creatinine Glucose POC Glucose 163 H 120 H 144 H Lactic Acid Calcium Ionized Calcium Phosphorus Magnesium Direct Bilirubin AST ALT Alkaline Phosphatase Lactate Dehydrogenase Troponin T C-Reactive Protein Total Protein Albumin Prealbumin Triglycerides Cholesterol LDL Cholesterol Direct HDL Cholesterol 25-OH Vitamin D Total PTH Intact Urine pH Urine WBC (Auto) Urine Creatinine Urine Total Protein Fluid Total Protein Vancomycin Trough Rheumatoid Factor Complement C4 Miscellaneous Test Crossmatch 01/11/17 01/11/17 01/11/17 00:09 04:00 04:00 WBC 15.8 H RBC 3.04 L Hgb 8.2 L Hct 25.5 L MCV MCH 27 L MCHC RDW 17.3 H Plt Count Lymph % (Auto) [place] % (Auto) Lymph # [place] # Baso # Seg Neutrophils % Seg Neuts % (Manual) Lymphocytes % (Manual) Monocytes % (Manual) Eosinophils % (Manual) Basophils % (Manual) Nucleated RBC % Seg Neutrophils # Seg Neutrophils # Man Lymphocytes # (Manual) Monocytes # (Manual) Eosinophils # (Manual) Basophils # (Manual) PT INR Fibrinogen dRVVT Confirm Interp Factor V Activity POC ABG pH POC ABG pCO2 POC ABG pO2 ABG pO2 ABG HCO3 ABG Base Excess ABG Hemoglobin Oxyhemoglobin Sodium Potassium Chloride Carbon Dioxide BUN 78 H Creatinine 1.6 H Glucose 109 H POC Glucose 122 H Lactic Acid Calcium Ionized Calcium Phosphorus Magnesium Direct Bilirubin AST ALT Alkaline Phosphatase Lactate Dehydrogenase Troponin T C-Reactive Protein Total Protein Albumin Prealbumin Triglycerides Cholesterol LDL Cholesterol Direct HDL Cholesterol 25-OH Vitamin D Total PTH Intact Urine pH Urine WBC (Auto) Urine Creatinine Urine Total Protein Fluid Total Protein Vancomycin Trough Rheumatoid Factor Complement C4 Miscellaneous Test Crossmatch 01/11/17 01/11/17 01/11/17 12:46 18:23 23:42 WBC RBC Hgb Hct MCV MCH MCHC RDW Plt Count Lymph % (Auto) [place] % (Auto) Lymph # [place] # Baso # Seg Neutrophils % Seg Neuts % (Manual) Lymphocytes % (Manual) Monocytes % (Manual) Eosinophils % (Manual) Basophils % (Manual) Nucleated RBC % Seg Neutrophils # Seg Neutrophils # Man Lymphocytes # (Manual) Monocytes # (Manual) Eosinophils # (Manual) Basophils # (Manual) PT INR Fibrinogen dRVVT Confirm Interp Factor V Activity POC ABG pH POC ABG pCO2 POC ABG pO2 ABG pO2 ABG HCO3 ABG Base Excess ABG Hemoglobin Oxyhemoglobin Sodium Potassium Chloride Carbon Dioxide BUN Creatinine Glucose POC Glucose 148 H 125 H 124 H Lactic Acid Calcium Ionized Calcium Phosphorus Magnesium Direct Bilirubin AST ALT Alkaline Phosphatase Lactate Dehydrogenase Troponin T C-Reactive Protein Total Protein Albumin Prealbumin Triglycerides Cholesterol LDL Cholesterol Direct HDL Cholesterol 25-OH Vitamin D Total PTH Intact Urine pH Urine WBC (Auto) Urine Creatinine Urine Total Protein Fluid Total Protein Vancomycin Trough Rheumatoid Factor Complement C4 Miscellaneous Test Crossmatch 01/12/17 01/12/17 01/12/17 04:30 04:30 05:47 WBC 15.8 H RBC 3.31 L Hgb 8.9 L Hct 27.9 L MCV MCH 27 L MCHC RDW 17.4 H Plt Count Lymph % (Auto) [place] % (Auto) Lymph # [place] # Baso # Seg Neutrophils % Seg Neuts % (Manual) Lymphocytes % (Manual) Monocytes % (Manual) Eosinophils % (Manual) Basophils % (Manual) Nucleated RBC % Seg Neutrophils # Seg Neutrophils # Man Lymphocytes # (Manual) Monocytes # (Manual) Eosinophils # (Manual) Basophils # (Manual) PT INR Fibrinogen dRVVT Confirm Interp Factor V Activity POC ABG pH POC ABG pCO2 POC ABG pO2 ABG pO2 ABG HCO3 ABG Base Excess ABG Hemoglobin Oxyhemoglobin Sodium Potassium Chloride Carbon Dioxide BUN 57 H Creatinine Glucose 121 H POC Glucose 110 H Lactic Acid Calcium Ionized Calcium Phosphorus 2.10 L Magnesium Direct Bilirubin AST ALT Alkaline Phosphatase Lactate Dehydrogenase Troponin T C-Reactive Protein Total Protein Albumin Prealbumin Triglycerides Cholesterol LDL Cholesterol Direct HDL Cholesterol 25-OH Vitamin D Total PTH Intact Urine pH Urine WBC (Auto) Urine Creatinine Urine Total Protein Fluid Total Protein Vancomycin Trough Rheumatoid Factor Complement C4 Miscellaneous Test Crossmatch 01/12/17 01/12/17 01/12/17 11:35 17:45 23:14 WBC RBC Hgb Hct MCV MCH MCHC RDW Plt Count Lymph % (Auto) [place] % (Auto) Lymph # [place] # Baso # Seg Neutrophils % Seg Neuts % (Manual) Lymphocytes % (Manual) Monocytes % (Manual) Eosinophils % (Manual) Basophils % (Manual) Nucleated RBC % Seg Neutrophils # Seg Neutrophils # Man Lymphocytes # (Manual) Monocytes # (Manual) Eosinophils # (Manual) Basophils # (Manual) PT INR Fibrinogen dRVVT Confirm Interp Factor V Activity POC ABG pH POC ABG pCO2 POC ABG pO2 ABG pO2 ABG HCO3 ABG Base Excess ABG Hemoglobin Oxyhemoglobin Sodium Potassium Chloride Carbon Dioxide BUN Creatinine Glucose POC Glucose 146 H 117 H 123 H Lactic Acid Calcium Ionized Calcium Phosphorus Magnesium Direct Bilirubin AST ALT Alkaline Phosphatase Lactate Dehydrogenase Troponin T C-Reactive Protein Total Protein Albumin Prealbumin Triglycerides Cholesterol LDL Cholesterol Direct HDL Cholesterol 25-OH Vitamin D Total PTH Intact Urine pH Urine WBC (Auto) Urine Creatinine Urine Total Protein Fluid Total Protein Vancomycin Trough Rheumatoid Factor Complement C4 Miscellaneous Test Crossmatch 01/13/17 01/13/17 01/13/17 05:32 06:00 12:10 WBC RBC Hgb Hct MCV MCH MCHC RDW Plt Count Lymph % (Auto) [place] % (Auto) Lymph # [place] # Baso # Seg Neutrophils % Seg Neuts % (Manual) Lymphocytes % (Manual) Monocytes % (Manual) Eosinophils % (Manual) Basophils % (Manual) Nucleated RBC % Seg Neutrophils # Seg Neutrophils # Man Lymphocytes # (Manual) Monocytes # (Manual) Eosinophils # (Manual) Basophils # (Manual) PT INR Fibrinogen dRVVT Confirm Interp Factor V Activity POC ABG pH POC ABG pCO2 POC ABG pO2 ABG pO2 ABG HCO3 ABG Base Excess ABG Hemoglobin Oxyhemoglobin Sodium Potassium Chloride Carbon Dioxide BUN 80 H Creatinine 1.4 H Glucose 106 H POC Glucose 106 H Lactic Acid Calcium Ionized Calcium Phosphorus Magnesium Direct Bilirubin AST ALT Alkaline Phosphatase Lactate Dehydrogenase Troponin T C-Reactive Protein Total Protein Albumin Prealbumin Triglycerides Cholesterol LDL Cholesterol Direct HDL Cholesterol 25-OH Vitamin D Total PTH Intact Urine pH Urine WBC (Auto) Urine Creatinine Urine Total Protein Fluid Total Protein 3.0 L Vancomycin Trough Rheumatoid Factor Complement C4 Miscellaneous Test Crossmatch 01/13/17 01/13/17 01/13/17 12:17 15:50 17:30 WBC RBC Hgb Hct MCV MCH MCHC RDW Plt Count Lymph % (Auto) [place] % (Auto) Lymph # [place] # Baso # Seg Neutrophils % Seg Neuts % (Manual) Lymphocytes % (Manual) Monocytes % (Manual) Eosinophils % (Manual) Basophils % (Manual) Nucleated RBC % Seg Neutrophils # Seg Neutrophils # Man Lymphocytes # (Manual) Monocytes # (Manual) Eosinophils # (Manual) Basophils # (Manual) PT 15.4 H INR 1.16 H Fibrinogen dRVVT Confirm Interp Factor V Activity POC ABG pH POC ABG pCO2 POC ABG pO2 ABG pO2 ABG HCO3 ABG Base Excess ABG Hemoglobin Oxyhemoglobin Sodium Potassium Chloride Carbon Dioxide BUN Creatinine Glucose POC Glucose 168 H 110 H Lactic Acid Calcium Ionized Calcium Phosphorus Magnesium Direct Bilirubin AST ALT Alkaline Phosphatase Lactate Dehydrogenase Troponin T C-Reactive Protein Total Protein Albumin Prealbumin Triglycerides Cholesterol LDL Cholesterol Direct HDL Cholesterol 25-OH Vitamin D Total PTH Intact Urine pH Urine WBC (Auto) Urine Creatinine Urine Total Protein Fluid Total Protein Vancomycin Trough Rheumatoid Factor Complement C4 Miscellaneous Test Crossmatch 01/13/17 01/14/17 01/14/17 23:42 05:24 05:30 WBC RBC Hgb Hct MCV MCH MCHC RDW Plt Count Lymph % (Auto) [place] % (Auto) Lymph # [place] # Baso # Seg Neutrophils % Seg Neuts % (Manual) Lymphocytes % (Manual) Monocytes % (Manual) Eosinophils % (Manual) Basophils % (Manual) Nucleated RBC % Seg Neutrophils # Seg Neutrophils # Man Lymphocytes # (Manual) Monocytes # (Manual) Eosinophils # (Manual) Basophils # (Manual) PT INR Fibrinogen dRVVT Confirm Interp Factor V Activity POC ABG pH POC ABG pCO2 POC ABG pO2 ABG pO2 ABG HCO3 ABG Base Excess ABG Hemoglobin Oxyhemoglobin Sodium Potassium Chloride Carbon Dioxide BUN 58 H Creatinine Glucose 114 H POC Glucose 155 H 121 H Lactic Acid Calcium Ionized Calcium Phosphorus Magnesium Direct Bilirubin AST ALT Alkaline Phosphatase Lactate Dehydrogenase Troponin T C-Reactive Protein Total Protein Albumin Prealbumin Triglycerides Cholesterol LDL Cholesterol Direct HDL Cholesterol 25-OH Vitamin D Total PTH Intact Urine pH Urine WBC (Auto) Urine Creatinine Urine Total Protein Fluid Total Protein Vancomycin Trough Rheumatoid Factor Complement C4 Miscellaneous Test Crossmatch 01/14/17 01/14/17 01/15/17 12:48 17:36 00:15 WBC RBC Hgb Hct MCV MCH MCHC RDW Plt Count Lymph % (Auto) [place] % (Auto) Lymph # [place] # Baso # Seg Neutrophils % Seg Neuts % (Manual) Lymphocytes % (Manual) Monocytes % (Manual) Eosinophils % (Manual) Basophils % (Manual) Nucleated RBC % Seg Neutrophils # Seg Neutrophils # Man Lymphocytes # (Manual) Monocytes # (Manual) Eosinophils # (Manual) Basophils # (Manual) PT INR Fibrinogen dRVVT Confirm Interp Factor V Activity POC ABG pH POC ABG pCO2 POC ABG pO2 ABG pO2 ABG HCO3 ABG Base Excess ABG Hemoglobin Oxyhemoglobin Sodium Potassium Chloride Carbon Dioxide BUN Creatinine Glucose POC Glucose 130 H 135 H 132 H Lactic Acid Calcium Ionized Calcium Phosphorus Magnesium Direct Bilirubin AST ALT Alkaline Phosphatase Lactate Dehydrogenase Troponin T C-Reactive Protein Total Protein Albumin Prealbumin Triglycerides Cholesterol LDL Cholesterol Direct HDL Cholesterol 25-OH Vitamin D Total PTH Intact Urine pH Urine WBC (Auto) Urine Creatinine Urine Total Protein Fluid Total Protein Vancomycin Trough Rheumatoid Factor Complement C4 Miscellaneous Test Crossmatch 01/15/17 01/15/17 01/15/17 05:01 11:55 12:45 WBC 16.2 H RBC 3.00 L Hgb 8.1 L Hct 25.4 L MCV MCH 27 L MCHC RDW 17.6 H Plt Count Lymph % (Auto) 11.7 L [place] % (Auto) 7.8 H Lymph # [place] # 1.3 H Baso # Seg Neutrophils % 80.1 H Seg Neuts % (Manual) Lymphocytes % (Manual) Monocytes % (Manual) Eosinophils % (Manual) Basophils % (Manual) Nucleated RBC % Seg Neutrophils # 13.0 H Seg Neutrophils # Man Lymphocytes # (Manual) Monocytes # (Manual) Eosinophils # (Manual) Basophils # (Manual) PT INR Fibrinogen dRVVT Confirm Interp Factor V Activity POC ABG pH POC ABG pCO2 POC ABG pO2 ABG pO2 ABG HCO3 ABG Base Excess ABG Hemoglobin Oxyhemoglobin Sodium Potassium Chloride Carbon Dioxide BUN Creatinine Glucose POC Glucose 126 H 125 H Lactic Acid Calcium Ionized Calcium Phosphorus Magnesium Direct Bilirubin AST ALT Alkaline Phosphatase Lactate Dehydrogenase Troponin T C-Reactive Protein Total Protein Albumin Prealbumin Triglycerides Cholesterol LDL Cholesterol Direct HDL Cholesterol 25-OH Vitamin D Total PTH Intact Urine pH Urine WBC (Auto) Urine Creatinine Urine Total Protein Fluid Total Protein Vancomycin Trough Rheumatoid Factor Complement C4 Miscellaneous Test Crossmatch 01/15/17 01/15/17 01/15/17 12:45 17:31 23:39 WBC RBC Hgb Hct MCV MCH MCHC RDW Plt Count Lymph % (Auto) [place] % (Auto) Lymph # [place] # Baso # Seg Neutrophils % Seg Neuts % (Manual) Lymphocytes % (Manual) Monocytes % (Manual) Eosinophils % (Manual) Basophils % (Manual) Nucleated RBC % Seg Neutrophils # Seg Neutrophils # Man Lymphocytes # (Manual) Monocytes # (Manual) Eosinophils # (Manual) Basophils # (Manual) PT INR Fibrinogen dRVVT Confirm Interp Factor V Activity POC ABG pH POC ABG pCO2 POC ABG pO2 ABG pO2 ABG HCO3 ABG Base Excess ABG Hemoglobin Oxyhemoglobin Sodium 136 L Potassium Chloride Carbon Dioxide BUN 87 H Creatinine 1.7 H Glucose 108 H POC Glucose 129 H 112 H Lactic Acid Calcium Ionized Calcium Phosphorus Magnesium Direct Bilirubin AST ALT Alkaline Phosphatase Lactate Dehydrogenase Troponin T C-Reactive Protein Total Protein Albumin Prealbumin Triglycerides Cholesterol LDL Cholesterol Direct HDL Cholesterol 25-OH Vitamin D Total PTH Intact Urine pH Urine WBC (Auto) Urine Creatinine Urine Total Protein Fluid Total Protein Vancomycin Trough Rheumatoid Factor Complement C4 Miscellaneous Test Crossmatch 01/16/17 01/16/17 01/16/17 05:23 11:42 12:32 WBC RBC Hgb Hct MCV MCH MCHC RDW Plt Count Lymph % (Auto) [place] % (Auto) Lymph # [place] # Baso # Seg Neutrophils % Seg Neuts % (Manual) Lymphocytes % (Manual) Monocytes % (Manual) Eosinophils % (Manual) Basophils % (Manual) Nucleated RBC % Seg Neutrophils # Seg Neutrophils # Man Lymphocytes # (Manual) Monocytes # (Manual) Eosinophils # (Manual) Basophils # (Manual) PT INR Fibrinogen dRVVT Confirm Interp Factor V Activity POC ABG pH 7.499 H POC ABG pCO2 30.9 L POC ABG pO2 51 L ABG pO2 ABG HCO3 ABG Base Excess ABG Hemoglobin Oxyhemoglobin Sodium Potassium Chloride Carbon Dioxide BUN Creatinine Glucose POC Glucose 118 H 133 H Lactic Acid Calcium Ionized Calcium Phosphorus Magnesium Direct Bilirubin AST ALT Alkaline Phosphatase Lactate Dehydrogenase Troponin T C-Reactive Protein Total Protein Albumin Prealbumin Triglycerides Cholesterol LDL Cholesterol Direct HDL Cholesterol 25-OH Vitamin D Total PTH Intact Urine pH Urine WBC (Auto) Urine Creatinine Urine Total Protein Fluid Total Protein Vancomycin Trough Rheumatoid Factor Complement C4 Miscellaneous Test Crossmatch 01/16/17 01/16/17 01/16/17 17:52 23:57 Unknown WBC RBC Hgb Hct MCV MCH MCHC RDW Plt Count Lymph % (Auto) [place] % (Auto) Lymph # [place] # Baso # Seg Neutrophils % Seg Neuts % (Manual) Lymphocytes % (Manual) Monocytes % (Manual) Eosinophils % (Manual) Basophils % (Manual) Nucleated RBC % Seg Neutrophils # Seg Neutrophils # Man Lymphocytes # (Manual) Monocytes # (Manual) Eosinophils # (Manual) Basophils # (Manual) PT INR Fibrinogen dRVVT Confirm Interp Factor V Activity POC ABG pH POC ABG pCO2 POC ABG pO2 ABG pO2 ABG HCO3 ABG Base Excess ABG Hemoglobin Oxyhemoglobin Sodium 135 L Potassium Chloride Carbon Dioxide BUN 101 H Creatinine 1.8 H Glucose 117 H POC Glucose 130 H 143 H Lactic Acid Calcium Ionized Calcium Phosphorus 5.80 H Magnesium Direct Bilirubin AST ALT Alkaline Phosphatase Lactate Dehydrogenase Troponin T C-Reactive Protein Total Protein Albumin Prealbumin Triglycerides Cholesterol LDL Cholesterol Direct HDL Cholesterol 25-OH Vitamin D Total PTH Intact Urine pH Urine WBC (Auto) Urine Creatinine Urine Total Protein Fluid Total Protein Vancomycin Trough Rheumatoid Factor Complement C4 Miscellaneous Test Crossmatch 01/17/17 01/17/17 01/17/17 05:30 05:46 11:49 WBC RBC Hgb Hct MCV MCH MCHC RDW Plt Count Lymph % (Auto) [place] % (Auto) Lymph # [place] # Baso # Seg Neutrophils % Seg Neuts % (Manual) Lymphocytes % (Manual) Monocytes % (Manual) Eosinophils % (Manual) Basophils % (Manual) Nucleated RBC % Seg Neutrophils # Seg Neutrophils # Man Lymphocytes # (Manual) Monocytes # (Manual) Eosinophils # (Manual) Basophils # (Manual) PT INR Fibrinogen dRVVT Confirm Interp Factor V Activity POC ABG pH POC ABG pCO2 POC ABG pO2 ABG pO2 ABG HCO3 ABG Base Excess ABG Hemoglobin Oxyhemoglobin Sodium 134 L Potassium Chloride 95.8 L Carbon Dioxide BUN 66 H Creatinine 1.3 H Glucose 138 H POC Glucose 147 H 124 H Lactic Acid Calcium Ionized Calcium Phosphorus Magnesium Direct Bilirubin AST ALT Alkaline Phosphatase 254 H Lactate Dehydrogenase Troponin T C-Reactive Protein Total Protein Albumin 1.3 L Prealbumin Triglycerides Cholesterol LDL Cholesterol Direct HDL Cholesterol 25-OH Vitamin D Total PTH Intact Urine pH Urine WBC (Auto) Urine Creatinine Urine Total Protein Fluid Total Protein Vancomycin Trough Rheumatoid Factor Complement C4 Miscellaneous Test Crossmatch 01/17/17 01/17/17 01/18/17 17:30 23:41 05:15 WBC RBC Hgb Hct MCV MCH MCHC RDW Plt Count Lymph % (Auto) [place] % (Auto) Lymph # [place] # Baso # Seg Neutrophils % Seg Neuts % (Manual) Lymphocytes % (Manual) Monocytes % (Manual) Eosinophils % (Manual) Basophils % (Manual) Nucleated RBC % Seg Neutrophils # Seg Neutrophils # Man Lymphocytes # (Manual) Monocytes # (Manual) Eosinophils # (Manual) Basophils # (Manual) PT INR Fibrinogen dRVVT Confirm Interp Factor V Activity POC ABG pH POC ABG pCO2 POC ABG pO2 ABG pO2 ABG HCO3 ABG Base Excess ABG Hemoglobin Oxyhemoglobin Sodium Potassium Chloride Carbon Dioxide BUN 89 H Creatinine 1.7 H Glucose 118 H POC Glucose 137 H 119 H Lactic Acid Calcium Ionized Calcium Phosphorus Magnesium Direct Bilirubin AST ALT Alkaline Phosphatase Lactate Dehydrogenase Troponin T C-Reactive Protein Total Protein Albumin Prealbumin Triglycerides Cholesterol LDL Cholesterol Direct HDL Cholesterol 25-OH Vitamin D Total PTH Intact Urine pH Urine WBC (Auto) Urine Creatinine Urine Total Protein Fluid Total Protein Vancomycin Trough Rheumatoid Factor Complement C4 Miscellaneous Test Crossmatch 01/18/17 01/18/17 01/18/17 05:19 12:16 18:11 WBC RBC Hgb Hct MCV MCH MCHC RDW Plt Count Lymph % (Auto) [place] % (Auto) Lymph # [place] # Baso # Seg Neutrophils % Seg Neuts % (Manual) Lymphocytes % (Manual) Monocytes % (Manual) Eosinophils % (Manual) Basophils % (Manual) Nucleated RBC % Seg Neutrophils # Seg Neutrophils # Man Lymphocytes # (Manual) Monocytes # (Manual) Eosinophils # (Manual) Basophils # (Manual) PT INR Fibrinogen dRVVT Confirm Interp Factor V Activity POC ABG pH POC ABG pCO2 POC ABG pO2 ABG pO2 ABG HCO3 ABG Base Excess ABG Hemoglobin Oxyhemoglobin Sodium Potassium Chloride Carbon Dioxide BUN Creatinine Glucose POC Glucose 134 H 188 H 113 H Lactic Acid Calcium Ionized Calcium Phosphorus Magnesium Direct Bilirubin AST ALT Alkaline Phosphatase Lactate Dehydrogenase Troponin T C-Reactive Protein Total Protein Albumin Prealbumin Triglycerides Cholesterol LDL Cholesterol Direct HDL Cholesterol 25-OH Vitamin D Total PTH Intact Urine pH Urine WBC (Auto) Urine Creatinine Urine Total Protein Fluid Total Protein Vancomycin Trough Rheumatoid Factor Complement C4 Miscellaneous Test Crossmatch 01/19/17 01/19/17 01/19/17 00:00 05:30 05:36 WBC RBC Hgb Hct MCV MCH MCHC RDW Plt Count Lymph % (Auto) [place] % (Auto) Lymph # [place] # Baso # Seg Neutrophils % Seg Neuts % (Manual) Lymphocytes % (Manual) Monocytes % (Manual) Eosinophils % (Manual) Basophils % (Manual) Nucleated RBC % Seg Neutrophils # Seg Neutrophils # Man Lymphocytes # (Manual) Monocytes # (Manual) Eosinophils # (Manual) Basophils # (Manual) PT INR Fibrinogen dRVVT Confirm Interp Factor V Activity POC ABG pH POC ABG pCO2 POC ABG pO2 ABG pO2 ABG HCO3 ABG Base Excess ABG Hemoglobin Oxyhemoglobin Sodium Potassium Chloride Carbon Dioxide BUN 70 H Creatinine 1.5 H Glucose 121 H POC Glucose 137 H 155 H Lactic Acid Calcium Ionized Calcium Phosphorus 2.10 L D Magnesium Direct Bilirubin AST ALT Alkaline Phosphatase Lactate Dehydrogenase Troponin T C-Reactive Protein Total Protein Albumin Prealbumin Triglycerides Cholesterol LDL Cholesterol Direct HDL Cholesterol 25-OH Vitamin D Total PTH Intact Urine pH Urine WBC (Auto) Urine Creatinine Urine Total Protein Fluid Total Protein Vancomycin Trough Rheumatoid Factor Complement C4 Miscellaneous Test Crossmatch 01/19/17 01/19/17 01/19/17 11:59 15:32 17:57 WBC RBC Hgb Hct MCV MCH MCHC RDW Plt Count Lymph % (Auto) [place] % (Auto) Lymph # [place] # Baso # Seg Neutrophils % Seg Neuts % (Manual) Lymphocytes % (Manual) Monocytes % (Manual) Eosinophils % (Manual) Basophils % (Manual) Nucleated RBC % Seg Neutrophils # Seg Neutrophils # Man Lymphocytes # (Manual) Monocytes # (Manual) Eosinophils # (Manual) Basophils # (Manual) PT INR Fibrinogen dRVVT Confirm Interp Factor V Activity POC ABG pH POC ABG pCO2 33.1 L POC ABG pO2 76 L ABG pO2 ABG HCO3 ABG Base Excess ABG Hemoglobin Oxyhemoglobin Sodium Potassium Chloride Carbon Dioxide BUN Creatinine Glucose POC Glucose 156 H 129 H Lactic Acid Calcium Ionized Calcium Phosphorus Magnesium Direct Bilirubin AST ALT Alkaline Phosphatase Lactate Dehydrogenase Troponin T C-Reactive Protein Total Protein Albumin Prealbumin Triglycerides Cholesterol LDL Cholesterol Direct HDL Cholesterol 25-OH Vitamin D Total PTH Intact Urine pH Urine WBC (Auto) Urine Creatinine Urine Total Protein Fluid Total Protein Vancomycin Trough Rheumatoid Factor Complement C4 Miscellaneous Test Crossmatch 01/19/17 01/20/17 01/20/17 23:49 04:00 05:21 WBC RBC Hgb Hct MCV MCH MCHC RDW Plt Count Lymph % (Auto) [place] % (Auto) Lymph # [place] # Baso # Seg Neutrophils % Seg Neuts % (Manual) Lymphocytes % (Manual) Monocytes % (Manual) Eosinophils % (Manual) Basophils % (Manual) Nucleated RBC % Seg Neutrophils # Seg Neutrophils # Man Lymphocytes # (Manual) Monocytes # (Manual) Eosinophils # (Manual) Basophils # (Manual) PT INR Fibrinogen dRVVT Confirm Interp Factor V Activity POC ABG pH POC ABG pCO2 POC ABG pO2 ABG pO2 ABG HCO3 ABG Base Excess ABG Hemoglobin Oxyhemoglobin Sodium Potassium Chloride Carbon Dioxide BUN 96 H Creatinine 1.9 H Glucose 106 H POC Glucose 125 H 130 H Lactic Acid Calcium Ionized Calcium Phosphorus 2.40 L Magnesium Direct Bilirubin AST ALT Alkaline Phosphatase Lactate Dehydrogenase Troponin T C-Reactive Protein Total Protein Albumin Prealbumin Triglycerides Cholesterol LDL Cholesterol Direct HDL Cholesterol 25-OH Vitamin D Total PTH Intact Urine pH Urine WBC (Auto) Urine Creatinine Urine Total Protein Fluid Total Protein Vancomycin Trough Rheumatoid Factor Complement C4 Miscellaneous Test Crossmatch 01/20/17 01/20/17 01/20/17 11:58 12:17 17:26 WBC RBC Hgb Hct MCV MCH MCHC RDW Plt Count Lymph % (Auto) [place] % (Auto) Lymph # [place] # Baso # Seg Neutrophils % Seg Neuts % (Manual) Lymphocytes % (Manual) Monocytes % (Manual) Eosinophils % (Manual) Basophils % (Manual) Nucleated RBC % Seg Neutrophils # Seg Neutrophils # Man Lymphocytes # (Manual) Monocytes # (Manual) Eosinophils # (Manual) Basophils # (Manual) PT INR Fibrinogen dRVVT Confirm Interp Factor V Activity POC ABG pH POC ABG pCO2 POC ABG pO2 70 L ABG pO2 ABG HCO3 ABG Base Excess ABG Hemoglobin Oxyhemoglobin Sodium Potassium Chloride Carbon Dioxide BUN Creatinine Glucose POC Glucose 118 H 154 H Lactic Acid Calcium Ionized Calcium Phosphorus Magnesium Direct Bilirubin AST ALT Alkaline Phosphatase Lactate Dehydrogenase Troponin T C-Reactive Protein Total Protein Albumin Prealbumin Triglycerides Cholesterol LDL Cholesterol Direct HDL Cholesterol 25-OH Vitamin D Total PTH Intact Urine pH Urine WBC (Auto) Urine Creatinine Urine Total Protein Fluid Total Protein Vancomycin Trough Rheumatoid Factor Complement C4 Miscellaneous Test Crossmatch 01/21/17 01/21/17 01/21/17 04:00 04:56 11:46 WBC RBC Hgb Hct MCV MCH MCHC RDW Plt Count Lymph % (Auto) [place] % (Auto) Lymph # [place] # Baso # Seg Neutrophils % Seg Neuts % (Manual) Lymphocytes % (Manual) Monocytes % (Manual) Eosinophils % (Manual) Basophils % (Manual) Nucleated RBC % Seg Neutrophils # Seg Neutrophils # Man Lymphocytes # (Manual) Monocytes # (Manual) Eosinophils # (Manual) Basophils # (Manual) PT INR Fibrinogen dRVVT Confirm Interp Factor V Activity POC ABG pH POC ABG pCO2 POC ABG pO2 ABG pO2 ABG HCO3 ABG Base Excess ABG Hemoglobin Oxyhemoglobin Sodium Potassium 3.5 L Chloride 97.4 L Carbon Dioxide BUN 66 H Creatinine 1.4 H Glucose POC Glucose 116 H 106 H Lactic Acid Calcium Ionized Calcium Phosphorus 2.10 L Magnesium Direct Bilirubin AST ALT Alkaline Phosphatase Lactate Dehydrogenase Troponin T C-Reactive Protein Total Protein Albumin Prealbumin Triglycerides Cholesterol LDL Cholesterol Direct HDL Cholesterol 25-OH Vitamin D Total PTH Intact Urine pH Urine WBC (Auto) Urine Creatinine Urine Total Protein Fluid Total Protein Vancomycin Trough Rheumatoid Factor Complement C4 Miscellaneous Test Crossmatch 01/21/17 01/21/17 01/22/17 17:25 23:49 05:35 WBC RBC Hgb Hct MCV MCH MCHC RDW Plt Count Lymph % (Auto) [place] % (Auto) Lymph # [place] # Baso # Seg Neutrophils % Seg Neuts % (Manual) Lymphocytes % (Manual) Monocytes % (Manual) Eosinophils % (Manual) Basophils % (Manual) Nucleated RBC % Seg Neutrophils # Seg Neutrophils # Man Lymphocytes # (Manual) Monocytes # (Manual) Eosinophils # (Manual) Basophils # (Manual) PT INR Fibrinogen dRVVT Confirm Interp Factor V Activity POC ABG pH POC ABG pCO2 POC ABG pO2 ABG pO2 ABG HCO3 ABG Base Excess ABG Hemoglobin Oxyhemoglobin Sodium Potassium Chloride Carbon Dioxide BUN Creatinine Glucose POC Glucose 106 H 133 H 107 H Lactic Acid Calcium Ionized Calcium Phosphorus Magnesium Direct Bilirubin AST ALT Alkaline Phosphatase Lactate Dehydrogenase Troponin T C-Reactive Protein Total Protein Albumin Prealbumin Triglycerides Cholesterol LDL Cholesterol Direct HDL Cholesterol 25-OH Vitamin D Total PTH Intact Urine pH Urine WBC (Auto) Urine Creatinine Urine Total Protein Fluid Total Protein Vancomycin Trough Rheumatoid Factor Complement C4 Miscellaneous Test Crossmatch 01/22/17 01/22/17 01/22/17 07:20 07:20 11:31 WBC RBC 2.75 L Hgb 7.5 L Hct 22.7 L MCV MCH 27 L MCHC RDW 17.5 H Plt Count Lymph % (Auto) [place] % (Auto) Lymph # [place] # Baso # Seg Neutrophils % Seg Neuts % (Manual) Lymphocytes % (Manual) Monocytes % (Manual) Eosinophils % (Manual) Basophils % (Manual) Nucleated RBC % Seg Neutrophils # Seg Neutrophils # Man Lymphocytes # (Manual) Monocytes # (Manual) Eosinophils # (Manual) Basophils # (Manual) PT INR Fibrinogen dRVVT Confirm Interp Factor V Activity POC ABG pH POC ABG pCO2 POC ABG pO2 ABG pO2 ABG HCO3 ABG Base Excess ABG Hemoglobin Oxyhemoglobin Sodium Potassium 3.3 L Chloride Carbon Dioxide BUN 42 H Creatinine Glucose 105 H POC Glucose 124 H Lactic Acid Calcium Ionized Calcium Phosphorus 1.70 L Magnesium Direct Bilirubin AST ALT Alkaline Phosphatase Lactate Dehydrogenase Troponin T C-Reactive Protein Total Protein Albumin Prealbumin Triglycerides Cholesterol LDL Cholesterol Direct HDL Cholesterol 25-OH Vitamin D Total PTH Intact Urine pH Urine WBC (Auto) Urine Creatinine Urine Total Protein Fluid Total Protein Vancomycin Trough Rheumatoid Factor Complement C4 Miscellaneous Test Crossmatch 01/22/17 01/22/17 01/23/17 17:16 23:35 05:35 WBC RBC Hgb Hct MCV MCH MCHC RDW Plt Count Lymph % (Auto) [place] % (Auto) Lymph # [place] # Baso # Seg Neutrophils % Seg Neuts % (Manual) Lymphocytes % (Manual) Monocytes % (Manual) Eosinophils % (Manual) Basophils % (Manual) Nucleated RBC % Seg Neutrophils # Seg Neutrophils # Man Lymphocytes # (Manual) Monocytes # (Manual) Eosinophils # (Manual) Basophils # (Manual) PT INR Fibrinogen dRVVT Confirm Interp Factor V Activity POC ABG pH POC ABG pCO2 POC ABG pO2 ABG pO2 ABG HCO3 ABG Base Excess ABG Hemoglobin Oxyhemoglobin Sodium Potassium Chloride Carbon Dioxide BUN Creatinine Glucose POC Glucose 135 H 120 H 111 H Lactic Acid Calcium Ionized Calcium Phosphorus Magnesium Direct Bilirubin AST ALT Alkaline Phosphatase Lactate Dehydrogenase Troponin T C-Reactive Protein Total Protein Albumin Prealbumin Triglycerides Cholesterol LDL Cholesterol Direct HDL Cholesterol 25-OH Vitamin D Total PTH Intact Urine pH Urine WBC (Auto) Urine Creatinine Urine Total Protein Fluid Total Protein Vancomycin Trough Rheumatoid Factor Complement C4 Miscellaneous Test Crossmatch 01/23/17 01/23/17 01/23/17 06:10 17:27 23:44 WBC RBC Hgb Hct MCV MCH MCHC RDW Plt Count Lymph % (Auto) [place] % (Auto) Lymph # [place] # Baso # Seg Neutrophils % Seg Neuts % (Manual) Lymphocytes % (Manual) Monocytes % (Manual) Eosinophils % (Manual) Basophils % (Manual) Nucleated RBC % Seg Neutrophils # Seg Neutrophils # Man Lymphocytes # (Manual) Monocytes # (Manual) Eosinophils # (Manual) Basophils # (Manual) PT INR Fibrinogen dRVVT Confirm Interp Factor V Activity POC ABG pH POC ABG pCO2 POC ABG pO2 ABG pO2 ABG HCO3 ABG Base Excess ABG Hemoglobin Oxyhemoglobin Sodium Potassium 3.3 L Chloride Carbon Dioxide BUN 66 H Creatinine 1.3 H Glucose 109 H POC Glucose 120 H 115 H Lactic Acid Calcium Ionized Calcium Phosphorus 2.20 L D Magnesium Direct Bilirubin AST ALT Alkaline Phosphatase Lactate Dehydrogenase Troponin T C-Reactive Protein Total Protein Albumin Prealbumin Triglycerides Cholesterol LDL Cholesterol Direct HDL Cholesterol 25-OH Vitamin D Total PTH Intact Urine pH Urine WBC (Auto) Urine Creatinine Urine Total Protein Fluid Total Protein Vancomycin Trough Rheumatoid Factor Complement C4 Miscellaneous Test Crossmatch 01/24/17 01/24/17 01/24/17 05:19 05:50 12:19 WBC RBC Hgb Hct MCV MCH MCHC RDW Plt Count Lymph % (Auto) [place] % (Auto) Lymph # [place] # Baso # Seg Neutrophils % Seg Neuts % (Manual) Lymphocytes % (Manual) Monocytes % (Manual) Eosinophils % (Manual) Basophils % (Manual) Nucleated RBC % Seg Neutrophils # Seg Neutrophils # Man Lymphocytes # (Manual) Monocytes # (Manual) Eosinophils # (Manual) Basophils # (Manual) PT INR Fibrinogen dRVVT Confirm Interp Factor V Activity POC ABG pH POC ABG pCO2 POC ABG pO2 ABG pO2 ABG HCO3 ABG Base Excess ABG Hemoglobin Oxyhemoglobin Sodium Potassium Chloride Carbon Dioxide BUN 47 H Creatinine Glucose 117 H POC Glucose 126 H 119 H Lactic Acid Calcium Ionized Calcium Phosphorus 2.30 L Magnesium 1.60 L Direct Bilirubin AST ALT Alkaline Phosphatase Lactate Dehydrogenase Troponin T C-Reactive Protein Total Protein Albumin Prealbumin Triglycerides Cholesterol LDL Cholesterol Direct HDL Cholesterol 25-OH Vitamin D Total PTH Intact Urine pH Urine WBC (Auto) Urine Creatinine Urine Total Protein Fluid Total Protein Vancomycin Trough Rheumatoid Factor Complement C4 Miscellaneous Test Crossmatch 01/24/17 01/25/17 01/25/17 17:08 00:37 04:00 WBC RBC Hgb Hct MCV MCH MCHC RDW Plt Count Lymph % (Auto) [place] % (Auto) Lymph # [place] # Baso # Seg Neutrophils % Seg Neuts % (Manual) Lymphocytes % (Manual) Monocytes % (Manual) Eosinophils % (Manual) Basophils % (Manual) Nucleated RBC % Seg Neutrophils # Seg Neutrophils # Man Lymphocytes # (Manual) Monocytes # (Manual) Eosinophils # (Manual) Basophils # (Manual) PT INR Fibrinogen dRVVT Confirm Interp Factor V Activity POC ABG pH POC ABG pCO2 POC ABG pO2 ABG pO2 ABG HCO3 ABG Base Excess ABG Hemoglobin Oxyhemoglobin Sodium Potassium Chloride Carbon Dioxide BUN 72 H Creatinine 1.3 H Glucose POC Glucose 127 H 110 H Lactic Acid Calcium Ionized Calcium Phosphorus Magnesium Direct Bilirubin AST ALT Alkaline Phosphatase Lactate Dehydrogenase Troponin T C-Reactive Protein Total Protein Albumin Prealbumin Triglycerides Cholesterol LDL Cholesterol Direct HDL Cholesterol 25-OH Vitamin D Total PTH Intact Urine pH Urine WBC (Auto) Urine Creatinine Urine Total Protein Fluid Total Protein Vancomycin Trough Rheumatoid Factor Complement C4 Miscellaneous Test Crossmatch 01/25/17 01/25/17 01/25/17 04:00 11:15 13:05 WBC RBC 2.49 L Hgb 6.7 L Hct 20.9 L MCV MCH 27 L MCHC RDW 18.8 H Plt Count Lymph % (Auto) [place] % (Auto) 10.1 H Lymph # [place] # 1.0 H Baso # Seg Neutrophils % Seg Neuts % (Manual) Lymphocytes % (Manual) Monocytes % (Manual) Eosinophils % (Manual) Basophils % (Manual) Nucleated RBC % Seg Neutrophils # Seg Neutrophils # Man Lymphocytes # (Manual) Monocytes # (Manual) Eosinophils # (Manual) Basophils # (Manual) PT INR Fibrinogen dRVVT Confirm Interp Factor V Activity POC ABG pH POC ABG pCO2 POC ABG pO2 ABG pO2 ABG HCO3 ABG Base Excess ABG Hemoglobin Oxyhemoglobin Sodium Potassium Chloride Carbon Dioxide BUN Creatinine Glucose POC Glucose 128 H Lactic Acid Calcium Ionized Calcium Phosphorus Magnesium Direct Bilirubin AST ALT Alkaline Phosphatase Lactate Dehydrogenase Troponin T C-Reactive Protein Total Protein Albumin Prealbumin Triglycerides Cholesterol LDL Cholesterol Direct HDL Cholesterol 25-OH Vitamin D Total PTH Intact Urine pH Urine WBC (Auto) Urine Creatinine Urine Total Protein Fluid Total Protein Vancomycin Trough Rheumatoid Factor Complement C4 Miscellaneous Test Crossmatch See Detail 01/25/17 01/25/17 01/26/17 18:02 23:07 01:20 WBC RBC Hgb Hct MCV MCH MCHC RDW Plt Count Lymph % (Auto) [place] % (Auto) Lymph # [place] # Baso # Seg Neutrophils % Seg Neuts % (Manual) Lymphocytes % (Manual) Monocytes % (Manual) Eosinophils % (Manual) Basophils % (Manual) Nucleated RBC % Seg Neutrophils # Seg Neutrophils # Man Lymphocytes # (Manual) Monocytes # (Manual) Eosinophils # (Manual) Basophils # (Manual) PT INR Fibrinogen dRVVT Confirm Interp Factor V Activity POC ABG pH POC ABG pCO2 POC ABG pO2 ABG pO2 ABG HCO3 ABG Base Excess ABG Hemoglobin Oxyhemoglobin Sodium Potassium Chloride Carbon Dioxide BUN Creatinine Glucose POC Glucose 120 H 123 H 112 H Lactic Acid Calcium Ionized Calcium Phosphorus Magnesium Direct Bilirubin AST ALT Alkaline Phosphatase Lactate Dehydrogenase Troponin T C-Reactive Protein Total Protein Albumin Prealbumin Triglycerides Cholesterol LDL Cholesterol Direct HDL Cholesterol 25-OH Vitamin D Total PTH Intact Urine pH Urine WBC (Auto) Urine Creatinine Urine Total Protein Fluid Total Protein Vancomycin Trough Rheumatoid Factor Complement C4 Miscellaneous Test Crossmatch 01/26/17 01/26/17 01/26/17 04:20 04:20 11:23 WBC 13.1 H RBC 3.28 L Hgb 9.0 L Hct 26.9 L D MCV MCH 27 L MCHC RDW 17.2 H Plt Count Lymph % (Auto) [place] % (Auto) 9.0 H Lymph # [place] # 1.2 H Baso # Seg Neutrophils % 73.1 H Seg Neuts % (Manual) Lymphocytes % (Manual) Monocytes % (Manual) Eosinophils % (Manual) Basophils % (Manual) Nucleated RBC % Seg Neutrophils # 9.6 H Seg Neutrophils # Man Lymphocytes # (Manual) Monocytes # (Manual) Eosinophils # (Manual) Basophils # (Manual) PT INR Fibrinogen dRVVT Confirm Interp Factor V Activity POC ABG pH POC ABG pCO2 POC ABG pO2 ABG pO2 ABG HCO3 ABG Base Excess ABG Hemoglobin Oxyhemoglobin Sodium Potassium Chloride Carbon Dioxide BUN 51 H Creatinine Glucose 117 H POC Glucose 125 H Lactic Acid Calcium Ionized Calcium Phosphorus Magnesium Direct Bilirubin AST ALT Alkaline Phosphatase Lactate Dehydrogenase Troponin T C-Reactive Protein Total Protein Albumin Prealbumin Triglycerides Cholesterol LDL Cholesterol Direct HDL Cholesterol 25-OH Vitamin D Total PTH Intact Urine pH Urine WBC (Auto) Urine Creatinine Urine Total Protein Fluid Total Protein Vancomycin Trough Rheumatoid Factor Complement C4 Miscellaneous Test Crossmatch 01/26/17 01/27/17 01/27/17 17:11 00:30 04:00 WBC RBC Hgb Hct MCV MCH MCHC RDW Plt Count Lymph % (Auto) [place] % (Auto) Lymph # [place] # Baso # Seg Neutrophils % Seg Neuts % (Manual) Lymphocytes % (Manual) Monocytes % (Manual) Eosinophils % (Manual) Basophils % (Manual) Nucleated RBC % Seg Neutrophils # Seg Neutrophils # Man Lymphocytes # (Manual) Monocytes # (Manual) Eosinophils # (Manual) Basophils # (Manual) PT INR Fibrinogen dRVVT Confirm Interp Factor V Activity POC ABG pH POC ABG pCO2 POC ABG pO2 ABG pO2 ABG HCO3 ABG Base Excess ABG Hemoglobin Oxyhemoglobin Sodium Potassium Chloride 97.7 L Carbon Dioxide 21 L BUN 79 H Creatinine 1.7 H D Glucose 112 H POC Glucose 133 H 135 H Lactic Acid Calcium Ionized Calcium Phosphorus 5.00 H D Magnesium Direct Bilirubin AST ALT Alkaline Phosphatase Lactate Dehydrogenase Troponin T C-Reactive Protein Total Protein Albumin Prealbumin Triglycerides Cholesterol LDL Cholesterol Direct HDL Cholesterol 25-OH Vitamin D Total PTH Intact Urine pH Urine WBC (Auto) Urine Creatinine Urine Total Protein Fluid Total Protein Vancomycin Trough Rheumatoid Factor Complement C4 Miscellaneous Test Crossmatch 01/27/17 01/27/17 01/27/17 05:12 12:18 17:25 WBC RBC Hgb Hct MCV MCH MCHC RDW Plt Count Lymph % (Auto) [place] % (Auto) Lymph # [place] # Baso # Seg Neutrophils % Seg Neuts % (Manual) Lymphocytes % (Manual) Monocytes % (Manual) Eosinophils % (Manual) Basophils % (Manual) Nucleated RBC % Seg Neutrophils # Seg Neutrophils # Man Lymphocytes # (Manual) Monocytes # (Manual) Eosinophils # (Manual) Basophils # (Manual) PT INR Fibrinogen dRVVT Confirm Interp Factor V Activity POC ABG pH POC ABG pCO2 POC ABG pO2 ABG pO2 ABG HCO3 ABG Base Excess ABG Hemoglobin Oxyhemoglobin Sodium Potassium Chloride Carbon Dioxide BUN Creatinine Glucose POC Glucose 116 H 153 H 152 H Lactic Acid Calcium Ionized Calcium Phosphorus Magnesium Direct Bilirubin AST ALT Alkaline Phosphatase Lactate Dehydrogenase Troponin T C-Reactive Protein Total Protein Albumin Prealbumin Triglycerides Cholesterol LDL Cholesterol Direct HDL Cholesterol 25-OH Vitamin D Total PTH Intact Urine pH Urine WBC (Auto) Urine Creatinine Urine Total Protein Fluid Total Protein Vancomycin Trough Rheumatoid Factor Complement C4 Miscellaneous Test Crossmatch 01/27/17 01/28/17 01/28/17 23:42 04:00 04:00 WBC 14.4 H RBC 2.82 L Hgb 7.4 L Hct 23.5 L MCV MCH 26 L MCHC RDW 17.6 H Plt Count Lymph % (Auto) 10.2 L [place] % (Auto) 11.0 H Lymph # [place] # 1.6 H Baso # Seg Neutrophils % 78.0 H Seg Neuts % (Manual) Lymphocytes % (Manual) Monocytes % (Manual) Eosinophils % (Manual) Basophils % (Manual) Nucleated RBC % Seg Neutrophils # 11.3 H Seg Neutrophils # Man Lymphocytes # (Manual) Monocytes # (Manual) Eosinophils # (Manual) Basophils # (Manual) PT INR Fibrinogen dRVVT Confirm Interp Factor V Activity POC ABG pH POC ABG pCO2 POC ABG pO2 ABG pO2 ABG HCO3 ABG Base Excess ABG Hemoglobin Oxyhemoglobin Sodium Potassium Chloride Carbon Dioxide BUN 55 H Creatinine 1.3 H Glucose 114 H POC Glucose 121 H Lactic Acid Calcium Ionized Calcium Phosphorus Magnesium Direct Bilirubin AST ALT Alkaline Phosphatase Lactate Dehydrogenase Troponin T C-Reactive Protein Total Protein Albumin 1.4 L Prealbumin Triglycerides Cholesterol LDL Cholesterol Direct HDL Cholesterol 25-OH Vitamin D Total PTH Intact Urine pH Urine WBC (Auto) Urine Creatinine Urine Total Protein Fluid Total Protein Vancomycin Trough Rheumatoid Factor Complement C4 Miscellaneous Test Crossmatch 01/28/17 01/28/17 01/29/17 04:59 12:30 00:02 WBC RBC Hgb Hct MCV MCH MCHC RDW Plt Count Lymph % (Auto) [place] % (Auto) Lymph # [place] # Baso # Seg Neutrophils % Seg Neuts % (Manual) Lymphocytes % (Manual) Monocytes % (Manual) Eosinophils % (Manual) Basophils % (Manual) Nucleated RBC % Seg Neutrophils # Seg Neutrophils # Man Lymphocytes # (Manual) Monocytes # (Manual) Eosinophils # (Manual) Basophils # (Manual) PT INR Fibrinogen dRVVT Confirm Interp Factor V Activity POC ABG pH POC ABG pCO2 POC ABG pO2 ABG pO2 ABG HCO3 ABG Base Excess ABG Hemoglobin Oxyhemoglobin Sodium Potassium Chloride Carbon Dioxide BUN Creatinine Glucose POC Glucose 126 H 119 H 138 H Lactic Acid Calcium Ionized Calcium Phosphorus Magnesium Direct Bilirubin AST ALT Alkaline Phosphatase Lactate Dehydrogenase Troponin T C-Reactive Protein Total Protein Albumin Prealbumin Triglycerides Cholesterol LDL Cholesterol Direct HDL Cholesterol 25-OH Vitamin D Total PTH Intact Urine pH Urine WBC (Auto) Urine Creatinine Urine Total Protein Fluid Total Protein Vancomycin Trough Rheumatoid Factor Complement C4 Miscellaneous Test Crossmatch 01/29/17 01/29/17 01/29/17 04:58 06:15 11:35 WBC RBC Hgb Hct MCV MCH MCHC RDW Plt Count Lymph % (Auto) [place] % (Auto) Lymph # [place] # Baso # Seg Neutrophils % Seg Neuts % (Manual) Lymphocytes % (Manual) Monocytes % (Manual) Eosinophils % (Manual) Basophils % (Manual) Nucleated RBC % Seg Neutrophils # Seg Neutrophils # Man Lymphocytes # (Manual) Monocytes # (Manual) Eosinophils # (Manual) Basophils # (Manual) PT INR Fibrinogen dRVVT Confirm Interp Factor V Activity POC ABG pH POC ABG pCO2 POC ABG pO2 ABG pO2 ABG HCO3 ABG Base Excess ABG Hemoglobin Oxyhemoglobin Sodium Potassium Chloride Carbon Dioxide BUN 85 H Creatinine 1.7 H Glucose 105 H POC Glucose 114 H 110 H Lactic Acid Calcium Ionized Calcium Phosphorus Magnesium 2.40 H Direct Bilirubin AST ALT Alkaline Phosphatase Lactate Dehydrogenase Troponin T C-Reactive Protein Total Protein Albumin Prealbumin Triglycerides Cholesterol LDL Cholesterol Direct HDL Cholesterol 25-OH Vitamin D Total PTH Intact Urine pH Urine WBC (Auto) Urine Creatinine Urine Total Protein Fluid Total Protein Vancomycin Trough Rheumatoid Factor Complement C4 Miscellaneous Test Crossmatch 01/29/17 01/29/17 01/30/17 18:24 23:41 05:12 WBC RBC Hgb Hct MCV MCH MCHC RDW Plt Count Lymph % (Auto) [place] % (Auto) Lymph # [place] # Baso # Seg Neutrophils % Seg Neuts % (Manual) Lymphocytes % (Manual) Monocytes % (Manual) Eosinophils % (Manual) Basophils % (Manual) Nucleated RBC % Seg Neutrophils # Seg Neutrophils # Man Lymphocytes # (Manual) Monocytes # (Manual) Eosinophils # (Manual) Basophils # (Manual) PT INR Fibrinogen dRVVT Confirm Interp Factor V Activity POC ABG pH POC ABG pCO2 POC ABG pO2 ABG pO2 ABG HCO3 ABG Base Excess ABG Hemoglobin Oxyhemoglobin Sodium Potassium Chloride Carbon Dioxide BUN Creatinine Glucose POC Glucose 109 H 134 H 109 H Lactic Acid Calcium Ionized Calcium Phosphorus Magnesium Direct Bilirubin AST ALT Alkaline Phosphatase Lactate Dehydrogenase Troponin T C-Reactive Protein Total Protein Albumin Prealbumin Triglycerides Cholesterol LDL Cholesterol Direct HDL Cholesterol 25-OH Vitamin D Total PTH Intact Urine pH Urine WBC (Auto) Urine Creatinine Urine Total Protein Fluid Total Protein Vancomycin Trough Rheumatoid Factor Complement C4 Miscellaneous Test Crossmatch 01/30/17 01/30/17 01/30/17 11:26 17:43 23:39 WBC RBC Hgb Hct MCV MCH MCHC RDW Plt Count Lymph % (Auto) [place] % (Auto) Lymph # [place] # Baso # Seg Neutrophils % Seg Neuts % (Manual) Lymphocytes % (Manual) Monocytes % (Manual) Eosinophils % (Manual) Basophils % (Manual) Nucleated RBC % Seg Neutrophils # Seg Neutrophils # Man Lymphocytes # (Manual) Monocytes # (Manual) Eosinophils # (Manual) Basophils # (Manual) PT INR Fibrinogen dRVVT Confirm Interp Factor V Activity POC ABG pH POC ABG pCO2 POC ABG pO2 ABG pO2 ABG HCO3 ABG Base Excess ABG Hemoglobin Oxyhemoglobin Sodium Potassium Chloride Carbon Dioxide BUN Creatinine Glucose POC Glucose 135 H 143 H 122 H Lactic Acid Calcium Ionized Calcium Phosphorus Magnesium Direct Bilirubin AST ALT Alkaline Phosphatase Lactate Dehydrogenase Troponin T C-Reactive Protein Total Protein Albumin Prealbumin Triglycerides Cholesterol LDL Cholesterol Direct HDL Cholesterol 25-OH Vitamin D Total PTH Intact Urine pH Urine WBC (Auto) Urine Creatinine Urine Total Protein Fluid Total Protein Vancomycin Trough Rheumatoid Factor Complement C4 Miscellaneous Test Crossmatch 01/31/17 01/31/17 01/31/17 04:00 05:40 11:12 WBC RBC Hgb Hct MCV MCH MCHC RDW Plt Count Lymph % (Auto) [place] % (Auto) Lymph # [place] # Baso # Seg Neutrophils % Seg Neuts % (Manual) Lymphocytes % (Manual) Monocytes % (Manual) Eosinophils % (Manual) Basophils % (Manual) Nucleated RBC % Seg Neutrophils # Seg Neutrophils # Man Lymphocytes # (Manual) Monocytes # (Manual) Eosinophils # (Manual) Basophils # (Manual) PT INR Fibrinogen dRVVT Confirm Interp Factor V Activity POC ABG pH POC ABG pCO2 POC ABG pO2 ABG pO2 ABG HCO3 ABG Base Excess ABG Hemoglobin Oxyhemoglobin Sodium Potassium Chloride Carbon Dioxide BUN 78 H Creatinine 1.5 H Glucose 108 H POC Glucose 123 H Lactic Acid Calcium Ionized Calcium Phosphorus Magnesium Direct Bilirubin AST ALT Alkaline Phosphatase Lactate Dehydrogenase Troponin T C-Reactive Protein 8.10 H Total Protein Albumin Prealbumin Triglycerides Cholesterol LDL Cholesterol Direct HDL Cholesterol 25-OH Vitamin D Total PTH Intact Urine pH Urine WBC (Auto) Urine Creatinine Urine Total Protein Fluid Total Protein Vancomycin Trough Rheumatoid Factor Complement C4 Miscellaneous Test Crossmatch 01/31/17 01/31/17 01/31/17 11:16 17:45 17:50 WBC RBC Hgb Hct MCV MCH MCHC RDW Plt Count Lymph % (Auto) [place] % (Auto) Lymph # [place] # Baso # Seg Neutrophils % Seg Neuts % (Manual) Lymphocytes % (Manual) Monocytes % (Manual) Eosinophils % (Manual) Basophils % (Manual) Nucleated RBC % Seg Neutrophils # Seg Neutrophils # Man Lymphocytes # (Manual) Monocytes # (Manual) Eosinophils # (Manual) Basophils # (Manual) PT INR Fibrinogen dRVVT Confirm Interp Factor V Activity POC ABG pH POC ABG pCO2 POC ABG pO2 ABG pO2 ABG HCO3 ABG Base Excess ABG Hemoglobin Oxyhemoglobin Sodium Potassium Chloride Carbon Dioxide BUN Creatinine Glucose POC Glucose 119 H 111 H Lactic Acid Calcium Ionized Calcium Phosphorus Magnesium Direct Bilirubin AST ALT Alkaline Phosphatase Lactate Dehydrogenase Troponin T C-Reactive Protein Total Protein Albumin Prealbumin Triglycerides Cholesterol LDL Cholesterol Direct HDL Cholesterol 25-OH Vitamin D Total PTH Intact 6.76 L Urine pH Urine WBC (Auto) Urine Creatinine Urine Total Protein Fluid Total Protein Vancomycin Trough Rheumatoid Factor Complement C4 Miscellaneous Test Crossmatch 01/31/17 02/01/17 02/01/17 23:19 05:42 09:24 WBC RBC Hgb Hct MCV MCH MCHC RDW Plt Count Lymph % (Auto) [place] % (Auto) Lymph # [place] # Baso # Seg Neutrophils % Seg Neuts % (Manual) Lymphocytes % (Manual) Monocytes % (Manual) Eosinophils % (Manual) Basophils % (Manual) Nucleated RBC % Seg Neutrophils # Seg Neutrophils # Man Lymphocytes # (Manual) Monocytes # (Manual) Eosinophils # (Manual) Basophils # (Manual) PT INR Fibrinogen dRVVT Confirm Interp Factor V Activity POC ABG pH POC ABG pCO2 POC ABG pO2 ABG pO2 ABG HCO3 ABG Base Excess ABG Hemoglobin Oxyhemoglobin Sodium Potassium Chloride Carbon Dioxide BUN Creatinine Glucose POC Glucose 118 H 122 H Lactic Acid Calcium Ionized Calcium Phosphorus Magnesium 2.60 H Direct Bilirubin AST ALT Alkaline Phosphatase Lactate Dehydrogenase Troponin T C-Reactive Protein Total Protein Albumin Prealbumin Triglycerides Cholesterol LDL Cholesterol Direct HDL Cholesterol 25-OH Vitamin D Total PTH Intact Urine pH Urine WBC (Auto) Urine Creatinine Urine Total Protein Fluid Total Protein Vancomycin Trough Rheumatoid Factor Complement C4 Miscellaneous Test Crossmatch 02/01/17 02/01/17 02/02/17 09:24 12:15 07:40 WBC RBC Hgb Hct MCV MCH MCHC RDW Plt Count Lymph % (Auto) [place] % (Auto) Lymph # [place] # Baso # Seg Neutrophils % Seg Neuts % (Manual) Lymphocytes % (Manual) Monocytes % (Manual) Eosinophils % (Manual) Basophils % (Manual) Nucleated RBC % Seg Neutrophils # Seg Neutrophils # Man Lymphocytes # (Manual) Monocytes # (Manual) Eosinophils # (Manual) Basophils # (Manual) PT INR Fibrinogen dRVVT Confirm Interp Factor V Activity POC ABG pH POC ABG pCO2 POC ABG pO2 ABG pO2 ABG HCO3 ABG Base Excess ABG Hemoglobin Oxyhemoglobin Sodium Potassium Chloride Carbon Dioxide BUN 102 H 72 H Creatinine 1.9 H 1.5 H Glucose 120 H POC Glucose 156 H Lactic Acid Calcium Ionized Calcium Phosphorus Magnesium Direct Bilirubin AST ALT Alkaline Phosphatase Lactate Dehydrogenase Troponin T C-Reactive Protein Total Protein Albumin Prealbumin Triglycerides Cholesterol LDL Cholesterol Direct HDL Cholesterol 25-OH Vitamin D Total PTH Intact Urine pH Urine WBC (Auto) Urine Creatinine Urine Total Protein Fluid Total Protein Vancomycin Trough Rheumatoid Factor Complement C4 Miscellaneous Test Crossmatch 02/02/17 02/02/17 02/03/17 10:16 12:11 00:08 WBC 12.0 H RBC 3.08 L Hgb 8.3 L Hct 25.6 L MCV MCH 27 L MCHC RDW 18.2 H Plt Count Lymph % (Auto) [place] % (Auto) Lymph # [place] # Baso # Seg Neutrophils % 78.4 H Seg Neuts % (Manual) Lymphocytes % (Manual) Monocytes % (Manual) Eosinophils % (Manual) Basophils % (Manual) Nucleated RBC % Seg Neutrophils # 9.4 H Seg Neutrophils # Man Lymphocytes # (Manual) Monocytes # (Manual) Eosinophils # (Manual) Basophils # (Manual) PT INR Fibrinogen dRVVT Confirm Interp Factor V Activity POC ABG pH POC ABG pCO2 POC ABG pO2 ABG pO2 ABG HCO3 ABG Base Excess ABG Hemoglobin Oxyhemoglobin Sodium Potassium Chloride Carbon Dioxide BUN Creatinine Glucose POC Glucose 110 H 120 H Lactic Acid Calcium Ionized Calcium Phosphorus Magnesium Direct Bilirubin AST ALT Alkaline Phosphatase Lactate Dehydrogenase Troponin T C-Reactive Protein Total Protein Albumin Prealbumin Triglycerides Cholesterol LDL Cholesterol Direct HDL Cholesterol 25-OH Vitamin D Total PTH Intact Urine pH Urine WBC (Auto) Urine Creatinine Urine Total Protein Fluid Total Protein Vancomycin Trough Rheumatoid Factor Complement C4 Miscellaneous Test Crossmatch 02/03/17 02/03/17 02/03/17 05:41 07:38 11:31 WBC RBC Hgb Hct MCV MCH MCHC RDW Plt Count Lymph % (Auto) [place] % (Auto) Lymph # [place] # Baso # Seg Neutrophils % Seg Neuts % (Manual) Lymphocytes % (Manual) Monocytes % (Manual) Eosinophils % (Manual) Basophils % (Manual) Nucleated RBC % Seg Neutrophils # Seg Neutrophils # Man Lymphocytes # (Manual) Monocytes # (Manual) Eosinophils # (Manual) Basophils # (Manual) PT INR Fibrinogen dRVVT Confirm Interp Factor V Activity POC ABG pH POC ABG pCO2 POC ABG pO2 ABG pO2 ABG HCO3 ABG Base Excess ABG Hemoglobin Oxyhemoglobin Sodium 134 L Potassium Chloride Carbon Dioxide 21 L BUN 91 H Creatinine 1.9 H Glucose 110 H POC Glucose 119 H 119 H Lactic Acid Calcium 10.3 H Ionized Calcium Phosphorus Magnesium Direct Bilirubin AST ALT Alkaline Phosphatase Lactate Dehydrogenase Troponin T C-Reactive Protein Total Protein Albumin Prealbumin Triglycerides Cholesterol LDL Cholesterol Direct HDL Cholesterol 25-OH Vitamin D Total PTH Intact Urine pH Urine WBC (Auto) Urine Creatinine Urine Total Protein Fluid Total Protein Vancomycin Trough Rheumatoid Factor Complement C4 Miscellaneous Test Crossmatch 02/03/17 02/04/17 02/04/17 17:13 04:00 05:18 WBC RBC Hgb Hct MCV MCH MCHC RDW Plt Count Lymph % (Auto) [place] % (Auto) Lymph # [place] # Baso # Seg Neutrophils % Seg Neuts % (Manual) Lymphocytes % (Manual) Monocytes % (Manual) Eosinophils % (Manual) Basophils % (Manual) Nucleated RBC % Seg Neutrophils # Seg Neutrophils # Man Lymphocytes # (Manual) Monocytes # (Manual) Eosinophils # (Manual) Basophils # (Manual) PT INR Fibrinogen dRVVT Confirm Interp Factor V Activity POC ABG pH POC ABG pCO2 POC ABG pO2 ABG pO2 ABG HCO3 ABG Base Excess ABG Hemoglobin Oxyhemoglobin Sodium 136 L Potassium Chloride Carbon Dioxide BUN 58 H Creatinine 1.3 H Glucose 103 H POC Glucose 133 H 132 H Lactic Acid Calcium Ionized Calcium Phosphorus 2.00 L D Magnesium 1.60 L Direct Bilirubin AST ALT Alkaline Phosphatase Lactate Dehydrogenase Troponin T C-Reactive Protein Total Protein Albumin Prealbumin Triglycerides Cholesterol LDL Cholesterol Direct HDL Cholesterol 25-OH Vitamin D Total PTH Intact Urine pH Urine WBC (Auto) Urine Creatinine Urine Total Protein Fluid Total Protein Vancomycin Trough Rheumatoid Factor Complement C4 Miscellaneous Test Crossmatch 02/05/17 02/05/17 02/05/17 00:01 04:00 06:42 WBC RBC Hgb Hct MCV MCH MCHC RDW Plt Count Lymph % (Auto) [place] % (Auto) Lymph # [place] # Baso # Seg Neutrophils % Seg Neuts % (Manual) Lymphocytes % (Manual) Monocytes % (Manual) Eosinophils % (Manual) Basophils % (Manual) Nucleated RBC % Seg Neutrophils # Seg Neutrophils # Man Lymphocytes # (Manual) Monocytes # (Manual) Eosinophils # (Manual) Basophils # (Manual) PT INR Fibrinogen dRVVT Confirm Interp Factor V Activity POC ABG pH POC ABG pCO2 POC ABG pO2 ABG pO2 ABG HCO3 ABG Base Excess ABG Hemoglobin Oxyhemoglobin Sodium Potassium Chloride Carbon Dioxide BUN 83 H Creatinine 1.8 H Glucose POC Glucose 119 H 110 H Lactic Acid Calcium 10.7 H Ionized Calcium Phosphorus Magnesium Direct Bilirubin AST ALT Alkaline Phosphatase Lactate Dehydrogenase Troponin T C-Reactive Protein Total Protein Albumin Prealbumin Triglycerides Cholesterol LDL Cholesterol Direct HDL Cholesterol 25-OH Vitamin D Total PTH Intact Urine pH Urine WBC (Auto) Urine Creatinine Urine Total Protein Fluid Total Protein Vancomycin Trough Rheumatoid Factor Complement C4 Miscellaneous Test Crossmatch 02/05/17 02/05/17 02/05/17 09:59 11:47 23:44 WBC RBC 2.69 L Hgb 7.2 L Hct 22.5 L MCV MCH 27 L MCHC RDW 18.6 H Plt Count Lymph % (Auto) [place] % (Auto) 9.2 H Lymph # [place] # 0.9 H Baso # Seg Neutrophils % Seg Neuts % (Manual) Lymphocytes % (Manual) Monocytes % (Manual) Eosinophils % (Manual) Basophils % (Manual) Nucleated RBC % Seg Neutrophils # Seg Neutrophils # Man Lymphocytes # (Manual) Monocytes # (Manual) Eosinophils # (Manual) Basophils # (Manual) PT INR Fibrinogen dRVVT Confirm Interp Factor V Activity POC ABG pH POC ABG pCO2 POC ABG pO2 ABG pO2 ABG HCO3 ABG Base Excess ABG Hemoglobin Oxyhemoglobin Sodium Potassium Chloride Carbon Dioxide BUN Creatinine Glucose POC Glucose 130 H 123 H Lactic Acid Calcium Ionized Calcium Phosphorus Magnesium Direct Bilirubin AST ALT Alkaline Phosphatase Lactate Dehydrogenase Troponin T C-Reactive Protein Total Protein Albumin Prealbumin Triglycerides Cholesterol LDL Cholesterol Direct HDL Cholesterol 25-OH Vitamin D Total PTH Intact Urine pH Urine WBC (Auto) Urine Creatinine Urine Total Protein Fluid Total Protein Vancomycin Trough Rheumatoid Factor Complement C4 Miscellaneous Test Crossmatch 02/06/17 02/06/17 02/06/17 04:45 05:58 12:01 WBC RBC Hgb Hct MCV MCH MCHC RDW Plt Count Lymph % (Auto) [place] % (Auto) Lymph # [place] # Baso # Seg Neutrophils % Seg Neuts % (Manual) Lymphocytes % (Manual) Monocytes % (Manual) Eosinophils % (Manual) Basophils % (Manual) Nucleated RBC % Seg Neutrophils # Seg Neutrophils # Man Lymphocytes # (Manual) Monocytes # (Manual) Eosinophils # (Manual) Basophils # (Manual) PT INR Fibrinogen dRVVT Confirm Interp Factor V Activity POC ABG pH POC ABG pCO2 POC ABG pO2 ABG pO2 ABG HCO3 ABG Base Excess ABG Hemoglobin Oxyhemoglobin Sodium Potassium Chloride Carbon Dioxide BUN 101 H Creatinine 2.0 H Glucose 102 H POC Glucose 115 H 132 H Lactic Acid Calcium 10.6 H Ionized Calcium Phosphorus Magnesium Direct Bilirubin AST ALT Alkaline Phosphatase 199 H Lactate Dehydrogenase Troponin T C-Reactive Protein Total Protein Albumin 1.4 L Prealbumin Triglycerides Cholesterol LDL Cholesterol Direct HDL Cholesterol 25-OH Vitamin D Total PTH Intact Urine pH Urine WBC (Auto) Urine Creatinine Urine Total Protein Fluid Total Protein Vancomycin Trough Rheumatoid Factor Complement C4 Miscellaneous Test Crossmatch 02/06/17 02/06/17 02/07/17 17:41 23:32 05:04 WBC RBC Hgb Hct MCV MCH MCHC RDW Plt Count Lymph % (Auto) [place] % (Auto) Lymph # [place] # Baso # Seg Neutrophils % Seg Neuts % (Manual) Lymphocytes % (Manual) Monocytes % (Manual) Eosinophils % (Manual) Basophils % (Manual) Nucleated RBC % Seg Neutrophils # Seg Neutrophils # Man Lymphocytes # (Manual) Monocytes # (Manual) Eosinophils # (Manual) Basophils # (Manual) PT INR Fibrinogen dRVVT Confirm Interp Factor V Activity POC ABG pH POC ABG pCO2 POC ABG pO2 ABG pO2 ABG HCO3 ABG Base Excess ABG Hemoglobin Oxyhemoglobin Sodium Potassium Chloride Carbon Dioxide BUN Creatinine Glucose POC Glucose 134 H 128 H 119 H Lactic Acid Calcium Ionized Calcium Phosphorus Magnesium Direct Bilirubin AST ALT Alkaline Phosphatase Lactate Dehydrogenase Troponin T C-Reactive Protein Total Protein Albumin Prealbumin Triglycerides Cholesterol LDL Cholesterol Direct HDL Cholesterol 25-OH Vitamin D Total PTH Intact Urine pH Urine WBC (Auto) Urine Creatinine Urine Total Protein Fluid Total Protein Vancomycin Trough Rheumatoid Factor Complement C4 Miscellaneous Test Crossmatch 02/07/17 02/07/17 02/07/17 06:30 11:20 17:13 WBC RBC Hgb Hct MCV MCH MCHC RDW Plt Count Lymph % (Auto) [place] % (Auto) Lymph # [place] # Baso # Seg Neutrophils % Seg Neuts % (Manual) Lymphocytes % (Manual) Monocytes % (Manual) Eosinophils % (Manual) Basophils % (Manual) Nucleated RBC % Seg Neutrophils # Seg Neutrophils # Man Lymphocytes # (Manual) Monocytes # (Manual) Eosinophils # (Manual) Basophils # (Manual) PT INR Fibrinogen dRVVT Confirm Interp Factor V Activity POC ABG pH POC ABG pCO2 POC ABG pO2 ABG pO2 ABG HCO3 ABG Base Excess ABG Hemoglobin Oxyhemoglobin Sodium Potassium 3.4 L Chloride Carbon Dioxide BUN 69 H Creatinine 1.5 H Glucose 105 H POC Glucose 117 H 110 H Lactic Acid Calcium Ionized Calcium Phosphorus Magnesium 1.50 L Direct Bilirubin AST ALT Alkaline Phosphatase Lactate Dehydrogenase Troponin T C-Reactive Protein Total Protein Albumin Prealbumin Triglycerides Cholesterol LDL Cholesterol Direct HDL Cholesterol 25-OH Vitamin D Total PTH Intact Urine pH Urine WBC (Auto) Urine Creatinine Urine Total Protein Fluid Total Protein Vancomycin Trough Rheumatoid Factor Complement C4 Miscellaneous Test Crossmatch 02/07/17 02/08/17 02/08/17 20:47 04:00 11:43 WBC RBC Hgb Hct MCV MCH MCHC RDW Plt Count Lymph % (Auto) [place] % (Auto) Lymph # [place] # Baso # Seg Neutrophils % Seg Neuts % (Manual) Lymphocytes % (Manual) Monocytes % (Manual) Eosinophils % (Manual) Basophils % (Manual) Nucleated RBC % Seg Neutrophils # Seg Neutrophils # Man Lymphocytes # (Manual) Monocytes # (Manual) Eosinophils # (Manual) Basophils # (Manual) PT INR Fibrinogen dRVVT Confirm Interp Factor V Activity POC ABG pH POC ABG pCO2 POC ABG pO2 ABG pO2 ABG HCO3 ABG Base Excess ABG Hemoglobin Oxyhemoglobin Sodium Potassium Chloride Carbon Dioxide BUN 86 H Creatinine 1.7 H Glucose POC Glucose 115 H 122 H Lactic Acid Calcium Ionized Calcium Phosphorus Magnesium 1.60 L Direct Bilirubin AST ALT Alkaline Phosphatase Lactate Dehydrogenase Troponin T C-Reactive Protein Total Protein Albumin Prealbumin Triglycerides Cholesterol LDL Cholesterol Direct HDL Cholesterol 25-OH Vitamin D Total PTH Intact Urine pH Urine WBC (Auto) Urine Creatinine Urine Total Protein Fluid Total Protein Vancomycin Trough Rheumatoid Factor Complement C4 Miscellaneous Test Crossmatch 02/08/17 02/09/17 02/09/17 17:36 05:44 11:30 WBC RBC Hgb Hct MCV MCH MCHC RDW Plt Count Lymph % (Auto) [place] % (Auto) Lymph # [place] # Baso # Seg Neutrophils % Seg Neuts % (Manual) Lymphocytes % (Manual) Monocytes % (Manual) Eosinophils % (Manual) Basophils % (Manual) Nucleated RBC % Seg Neutrophils # Seg Neutrophils # Man Lymphocytes # (Manual) Monocytes # (Manual) Eosinophils # (Manual) Basophils # (Manual) PT INR Fibrinogen dRVVT Confirm Interp Factor V Activity POC ABG pH POC ABG pCO2 POC ABG pO2 ABG pO2 ABG HCO3 ABG Base Excess ABG Hemoglobin Oxyhemoglobin Sodium Potassium Chloride Carbon Dioxide BUN Creatinine Glucose POC Glucose 125 H 117 H 120 H Lactic Acid Calcium Ionized Calcium Phosphorus Magnesium Direct Bilirubin AST ALT Alkaline Phosphatase Lactate Dehydrogenase Troponin T C-Reactive Protein Total Protein Albumin Prealbumin Triglycerides Cholesterol LDL Cholesterol Direct HDL Cholesterol 25-OH Vitamin D Total PTH Intact Urine pH Urine WBC (Auto) Urine Creatinine Urine Total Protein Fluid Total Protein Vancomycin Trough Rheumatoid Factor Complement C4 Miscellaneous Test Crossmatch 02/09/17 02/10/17 02/10/17 23:45 05:45 05:50 WBC RBC Hgb Hct MCV MCH MCHC RDW Plt Count Lymph % (Auto) [place] % (Auto) Lymph # [place] # Baso # Seg Neutrophils % Seg Neuts % (Manual) Lymphocytes % (Manual) Monocytes % (Manual) Eosinophils % (Manual) Basophils % (Manual) Nucleated RBC % Seg Neutrophils # Seg Neutrophils # Man Lymphocytes # (Manual) Monocytes # (Manual) Eosinophils # (Manual) Basophils # (Manual) PT INR Fibrinogen dRVVT Confirm Interp Factor V Activity POC ABG pH POC ABG pCO2 POC ABG pO2 ABG pO2 ABG HCO3 ABG Base Excess ABG Hemoglobin Oxyhemoglobin Sodium Potassium Chloride Carbon Dioxide BUN 85 H Creatinine 1.8 H Glucose 109 H POC Glucose 114 H 189 H Lactic Acid Calcium Ionized Calcium Phosphorus Magnesium 2.50 H Direct Bilirubin AST ALT Alkaline Phosphatase Lactate Dehydrogenase Troponin T C-Reactive Protein Total Protein Albumin Prealbumin Triglycerides Cholesterol LDL Cholesterol Direct HDL Cholesterol 25-OH Vitamin D Total PTH Intact Urine pH Urine WBC (Auto) Urine Creatinine Urine Total Protein Fluid Total Protein Vancomycin Trough Rheumatoid Factor Complement C4 Miscellaneous Test Crossmatch 02/10/17 02/10/17 02/10/17 05:51 11:55 17:42 WBC RBC Hgb Hct MCV MCH MCHC RDW Plt Count Lymph % (Auto) [place] % (Auto) Lymph # [place] # Baso # Seg Neutrophils % Seg Neuts % (Manual) Lymphocytes % (Manual) Monocytes % (Manual) Eosinophils % (Manual) Basophils % (Manual) Nucleated RBC % Seg Neutrophils # Seg Neutrophils # Man Lymphocytes # (Manual) Monocytes # (Manual) Eosinophils # (Manual) Basophils # (Manual) PT INR Fibrinogen dRVVT Confirm Interp Factor V Activity POC ABG pH POC ABG pCO2 POC ABG pO2 ABG pO2 ABG HCO3 ABG Base Excess ABG Hemoglobin Oxyhemoglobin Sodium Potassium Chloride Carbon Dioxide BUN Creatinine Glucose POC Glucose 106 H 146 H 132 H Lactic Acid Calcium Ionized Calcium Phosphorus Magnesium Direct Bilirubin AST ALT Alkaline Phosphatase Lactate Dehydrogenase Troponin T C-Reactive Protein Total Protein Albumin Prealbumin Triglycerides Cholesterol LDL Cholesterol Direct HDL Cholesterol 25-OH Vitamin D Total PTH Intact Urine pH Urine WBC (Auto) Urine Creatinine Urine Total Protein Fluid Total Protein Vancomycin Trough Rheumatoid Factor Complement C4 Miscellaneous Test Crossmatch 02/10/17 02/11/17 02/11/17 23:43 04:08 05:34 WBC RBC Hgb Hct MCV MCH MCHC RDW Plt Count Lymph % (Auto) [place] % (Auto) Lymph # [place] # Baso # Seg Neutrophils % Seg Neuts % (Manual) Lymphocytes % (Manual) Monocytes % (Manual) Eosinophils % (Manual) Basophils % (Manual) Nucleated RBC % Seg Neutrophils # Seg Neutrophils # Man Lymphocytes # (Manual) Monocytes # (Manual) Eosinophils # (Manual) Basophils # (Manual) PT INR Fibrinogen dRVVT Confirm Interp Factor V Activity POC ABG pH POC ABG pCO2 POC ABG pO2 ABG pO2 ABG HCO3 ABG Base Excess ABG Hemoglobin Oxyhemoglobin Sodium 136 L Potassium Chloride Carbon Dioxide BUN 65 H Creatinine 1.7 H Glucose 105 H POC Glucose 130 H 113 H Lactic Acid Calcium Ionized Calcium Phosphorus Magnesium Direct Bilirubin AST ALT Alkaline Phosphatase Lactate Dehydrogenase Troponin T C-Reactive Protein Total Protein Albumin Prealbumin Triglycerides Cholesterol LDL Cholesterol Direct HDL Cholesterol 25-OH Vitamin D Total PTH Intact Urine pH Urine WBC (Auto) Urine Creatinine Urine Total Protein Fluid Total Protein Vancomycin Trough Rheumatoid Factor Complement C4 Miscellaneous Test Crossmatch 02/11/17 02/11/17 02/12/17 11:56 23:18 06:19 WBC RBC Hgb Hct MCV MCH MCHC RDW Plt Count Lymph % (Auto) [place] % (Auto) Lymph # [place] # Baso # Seg Neutrophils % Seg Neuts % (Manual) Lymphocytes % (Manual) Monocytes % (Manual) Eosinophils % (Manual) Basophils % (Manual) Nucleated RBC % Seg Neutrophils # Seg Neutrophils # Man Lymphocytes # (Manual) Monocytes # (Manual) Eosinophils # (Manual) Basophils # (Manual) PT INR Fibrinogen dRVVT Confirm Interp Factor V Activity POC ABG pH POC ABG pCO2 POC ABG pO2 ABG pO2 ABG HCO3 ABG Base Excess ABG Hemoglobin Oxyhemoglobin Sodium 136 L Potassium Chloride 97.1 L Carbon Dioxide BUN 93 H Creatinine 2.4 H Glucose POC Glucose 126 H 119 H Lactic Acid Calcium 11.0 H Ionized Calcium Phosphorus Magnesium Direct Bilirubin AST ALT Alkaline Phosphatase Lactate Dehydrogenase Troponin T C-Reactive Protein Total Protein Albumin Prealbumin Triglycerides Cholesterol LDL Cholesterol Direct HDL Cholesterol 25-OH Vitamin D Total PTH Intact Urine pH Urine WBC (Auto) Urine Creatinine Urine Total Protein Fluid Total Protein Vancomycin Trough Rheumatoid Factor Complement C4 Miscellaneous Test Crossmatch 02/12/17 02/12/17 02/12/17 08:00 10:25 11:42 WBC 15.4 H RBC 2.63 L Hgb 6.9 L Hct 22.6 L MCV MCH 26 L MCHC RDW 20.5 H Plt Count Lymph % (Auto) [place] % (Auto) Lymph # [place] # Baso # Seg Neutrophils % Seg Neuts % (Manual) Lymphocytes % (Manual) Monocytes % (Manual) Eosinophils % (Manual) Basophils % (Manual) Nucleated RBC % Seg Neutrophils # Seg Neutrophils # Man Lymphocytes # (Manual) Monocytes # (Manual) Eosinophils # (Manual) Basophils # (Manual) PT INR Fibrinogen dRVVT Confirm Interp Factor V Activity POC ABG pH POC ABG pCO2 POC ABG pO2 ABG pO2 ABG HCO3 ABG Base Excess ABG Hemoglobin Oxyhemoglobin Sodium Potassium Chloride Carbon Dioxide BUN Creatinine Glucose POC Glucose 142 H Lactic Acid Calcium Ionized Calcium Phosphorus Magnesium Direct Bilirubin AST ALT Alkaline Phosphatase Lactate Dehydrogenase Troponin T C-Reactive Protein Total Protein Albumin Prealbumin Triglycerides Cholesterol LDL Cholesterol Direct HDL Cholesterol 25-OH Vitamin D Total PTH Intact Urine pH Urine WBC (Auto) Urine Creatinine Urine Total Protein Fluid Total Protein Vancomycin Trough Rheumatoid Factor Complement C4 Miscellaneous Test Crossmatch See Detail 02/12/17 02/13/17 02/13/17 18:04 00:04 05:00 WBC RBC Hgb Hct MCV MCH MCHC RDW Plt Count Lymph % (Auto) [place] % (Auto) Lymph # [place] # Baso # Seg Neutrophils % Seg Neuts % (Manual) Lymphocytes % (Manual) Monocytes % (Manual) Eosinophils % (Manual) Basophils % (Manual) Nucleated RBC % Seg Neutrophils # Seg Neutrophils # Man Lymphocytes # (Manual) Monocytes # (Manual) Eosinophils # (Manual) Basophils # (Manual) PT INR Fibrinogen dRVVT Confirm Interp Factor V Activity POC ABG pH POC ABG pCO2 POC ABG pO2 ABG pO2 ABG HCO3 ABG Base Excess ABG Hemoglobin Oxyhemoglobin Sodium 134 L Potassium Chloride 96.1 L Carbon Dioxide 20 L BUN 125 H Creatinine 3.0 H Glucose 111 H POC Glucose 135 H 109 H Lactic Acid Calcium 11.3 H Ionized Calcium Phosphorus Magnesium Direct Bilirubin AST ALT Alkaline Phosphatase Lactate Dehydrogenase Troponin T C-Reactive Protein Total Protein Albumin Prealbumin Triglycerides Cholesterol LDL Cholesterol Direct HDL Cholesterol 25-OH Vitamin D Total PTH Intact Urine pH Urine WBC (Auto) Urine Creatinine Urine Total Protein Fluid Total Protein Vancomycin Trough Rheumatoid Factor Complement C4 Miscellaneous Test Crossmatch 02/13/17 02/13/17 02/13/17 05:00 05:28 12:03 WBC 11.9 H RBC 2.92 L Hgb 7.8 L Hct 25.2 L MCV MCH 27 L MCHC RDW 19.3 H Plt Count Lymph % (Auto) [place] % (Auto) Lymph # [place] # Baso # Seg Neutrophils % Seg Neuts % (Manual) Lymphocytes % (Manual) Monocytes % (Manual) Eosinophils % (Manual) Basophils % (Manual) Nucleated RBC % Seg Neutrophils # Seg Neutrophils # Man Lymphocytes # (Manual) Monocytes # (Manual) Eosinophils # (Manual) Basophils # (Manual) PT INR Fibrinogen dRVVT Confirm Interp Factor V Activity POC ABG pH POC ABG pCO2 POC ABG pO2 ABG pO2 ABG HCO3 ABG Base Excess ABG Hemoglobin Oxyhemoglobin Sodium Potassium Chloride Carbon Dioxide BUN Creatinine Glucose POC Glucose 124 H 160 H Lactic Acid Calcium Ionized Calcium Phosphorus Magnesium Direct Bilirubin AST ALT Alkaline Phosphatase Lactate Dehydrogenase Troponin T C-Reactive Protein Total Protein Albumin Prealbumin Triglycerides Cholesterol LDL Cholesterol Direct HDL Cholesterol 25-OH Vitamin D Total PTH Intact Urine pH Urine WBC (Auto) Urine Creatinine Urine Total Protein Fluid Total Protein Vancomycin Trough Rheumatoid Factor Complement C4 Miscellaneous Test Crossmatch 02/13/17 02/14/17 02/14/17 18:09 06:16 08:08 WBC 15.2 H RBC 2.97 L Hgb 8.1 L Hct 26.3 L MCV MCH MCHC RDW 19.3 H Plt Count Lymph % (Auto) [place] % (Auto) Lymph # [place] # Baso # Seg Neutrophils % Seg Neuts % (Manual) Lymphocytes % (Manual) Monocytes % (Manual) Eosinophils % (Manual) Basophils % (Manual) Nucleated RBC % Seg Neutrophils # Seg Neutrophils # Man Lymphocytes # (Manual) Monocytes # (Manual) Eosinophils # (Manual) Basophils # (Manual) PT INR Fibrinogen dRVVT Confirm Interp Factor V Activity POC ABG pH POC ABG pCO2 POC ABG pO2 ABG pO2 ABG HCO3 ABG Base Excess ABG Hemoglobin Oxyhemoglobin Sodium Potassium Chloride Carbon Dioxide BUN Creatinine Glucose POC Glucose 110 H 112 H Lactic Acid Calcium Ionized Calcium Phosphorus Magnesium Direct Bilirubin AST ALT Alkaline Phosphatase Lactate Dehydrogenase Troponin T C-Reactive Protein Total Protein Albumin Prealbumin Triglycerides Cholesterol LDL Cholesterol Direct HDL Cholesterol 25-OH Vitamin D Total PTH Intact Urine pH Urine WBC (Auto) Urine Creatinine Urine Total Protein Fluid Total Protein Vancomycin Trough Rheumatoid Factor Complement C4 Miscellaneous Test Crossmatch 02/14/17 02/14/17 02/15/17 08:08 17:41 04:15 WBC RBC Hgb Hct MCV MCH MCHC RDW Plt Count Lymph % (Auto) [place] % (Auto) Lymph # [place] # Baso # Seg Neutrophils % Seg Neuts % (Manual) Lymphocytes % (Manual) Monocytes % (Manual) Eosinophils % (Manual) Basophils % (Manual) Nucleated RBC % Seg Neutrophils # Seg Neutrophils # Man Lymphocytes # (Manual) Monocytes # (Manual) Eosinophils # (Manual) Basophils # (Manual) PT INR Fibrinogen dRVVT Confirm Interp Factor V Activity POC ABG pH POC ABG pCO2 POC ABG pO2 ABG pO2 ABG HCO3 ABG Base Excess ABG Hemoglobin Oxyhemoglobin Sodium Potassium Chloride Carbon Dioxide 18 L 21 L BUN 79 H 113 H Creatinine 2.1 H 2.8 H Glucose POC Glucose 118 H Lactic Acid Calcium 10.7 H Ionized Calcium Phosphorus 1.70 L D Magnesium 1.60 L Direct Bilirubin AST ALT Alkaline Phosphatase Lactate Dehydrogenase Troponin T C-Reactive Protein Total Protein Albumin Prealbumin Triglycerides Cholesterol LDL Cholesterol Direct HDL Cholesterol 25-OH Vitamin D Total PTH Intact Urine pH Urine WBC (Auto) Urine Creatinine Urine Total Protein Fluid Total Protein Vancomycin Trough Rheumatoid Factor Complement C4 Miscellaneous Test Crossmatch 02/15/17 02/15/17 02/15/17 06:06 11:31 17:52 WBC RBC Hgb Hct MCV MCH MCHC RDW Plt Count Lymph % (Auto) [place] % (Auto) Lymph # [place] # Baso # Seg Neutrophils % Seg Neuts % (Manual) Lymphocytes % (Manual) Monocytes % (Manual) Eosinophils % (Manual) Basophils % (Manual) Nucleated RBC % Seg Neutrophils # Seg Neutrophils # Man Lymphocytes # (Manual) Monocytes # (Manual) Eosinophils # (Manual) Basophils # (Manual) PT INR Fibrinogen dRVVT Confirm Interp Factor V Activity POC ABG pH POC ABG pCO2 POC ABG pO2 ABG pO2 ABG HCO3 ABG Base Excess ABG Hemoglobin Oxyhemoglobin Sodium Potassium Chloride Carbon Dioxide BUN Creatinine Glucose POC Glucose 115 H 129 H 201 H Lactic Acid Calcium Ionized Calcium Phosphorus Magnesium Direct Bilirubin AST ALT Alkaline Phosphatase Lactate Dehydrogenase Troponin T C-Reactive Protein Total Protein Albumin Prealbumin Triglycerides Cholesterol LDL Cholesterol Direct HDL Cholesterol 25-OH Vitamin D Total PTH Intact Urine pH Urine WBC (Auto) Urine Creatinine Urine Total Protein Fluid Total Protein Vancomycin Trough Rheumatoid Factor Complement C4 Miscellaneous Test Crossmatch 02/15/17 02/15/17 02/15/17 19:08 19:08 19:08 WBC RBC Hgb Hct MCV MCH MCHC RDW Plt Count Lymph % (Auto) [place] % (Auto) Lymph # [place] # Baso # Seg Neutrophils % Seg Neuts % (Manual) Lymphocytes % (Manual) Monocytes % (Manual) Eosinophils % (Manual) Basophils % (Manual) Nucleated RBC % Seg Neutrophils # Seg Neutrophils # Man Lymphocytes # (Manual) Monocytes # (Manual) Eosinophils # (Manual) Basophils # (Manual) PT INR Fibrinogen dRVVT Confirm Interp Factor V Activity POC ABG pH POC ABG pCO2 POC ABG pO2 ABG pO2 ABG HCO3 ABG Base Excess ABG Hemoglobin Oxyhemoglobin Sodium Potassium Chloride Carbon Dioxide BUN Creatinine Glucose POC Glucose Lactic Acid Calcium Ionized Calcium 6.0 H Phosphorus Magnesium Direct Bilirubin AST ALT Alkaline Phosphatase Lactate Dehydrogenase Troponin T C-Reactive Protein Total Protein Albumin Prealbumin Triglycerides Cholesterol LDL Cholesterol Direct HDL Cholesterol 25-OH Vitamin D Total 13 L PTH Intact 10.88 L Urine pH Urine WBC (Auto) Urine Creatinine Urine Total Protein Fluid Total Protein Vancomycin Trough Rheumatoid Factor Complement C4 Miscellaneous Test Crossmatch 02/16/17 02/16/17 02/16/17 05:12 06:00 12:39 WBC RBC Hgb Hct MCV MCH MCHC RDW Plt Count Lymph % (Auto) [place] % (Auto) Lymph # [place] # Baso # Seg Neutrophils % Seg Neuts % (Manual) Lymphocytes % (Manual) Monocytes % (Manual) Eosinophils % (Manual) Basophils % (Manual) Nucleated RBC % Seg Neutrophils # Seg Neutrophils # Man Lymphocytes # (Manual) Monocytes # (Manual) Eosinophils # (Manual) Basophils # (Manual) PT INR Fibrinogen dRVVT Confirm Interp Factor V Activity POC ABG pH POC ABG pCO2 POC ABG pO2 ABG pO2 ABG HCO3 ABG Base Excess ABG Hemoglobin Oxyhemoglobin Sodium Potassium Chloride Carbon Dioxide BUN 74 H Creatinine 1.7 H Glucose 102 H POC Glucose 125 H 109 H Lactic Acid Calcium Ionized Calcium Phosphorus 2.10 L D Magnesium Direct Bilirubin AST ALT Alkaline Phosphatase Lactate Dehydrogenase Troponin T C-Reactive Protein Total Protein Albumin Prealbumin Triglycerides Cholesterol LDL Cholesterol Direct HDL Cholesterol 25-OH Vitamin D Total PTH Intact Urine pH Urine WBC (Auto) Urine Creatinine Urine Total Protein Fluid Total Protein Vancomycin Trough Rheumatoid Factor Complement C4 Miscellaneous Test Crossmatch 02/16/17 02/16/17 02/17/17 17:31 23:57 05:30 WBC RBC Hgb Hct MCV MCH MCHC RDW Plt Count Lymph % (Auto) [place] % (Auto) Lymph # [place] # Baso # Seg Neutrophils % Seg Neuts % (Manual) Lymphocytes % (Manual) Monocytes % (Manual) Eosinophils % (Manual) Basophils % (Manual) Nucleated RBC % Seg Neutrophils # Seg Neutrophils # Man Lymphocytes # (Manual) Monocytes # (Manual) Eosinophils # (Manual) Basophils # (Manual) PT INR Fibrinogen dRVVT Confirm Interp Factor V Activity POC ABG pH POC ABG pCO2 POC ABG pO2 ABG pO2 ABG HCO3 ABG Base Excess ABG Hemoglobin Oxyhemoglobin Sodium Potassium Chloride Carbon Dioxide BUN Creatinine Glucose POC Glucose 106 H 127 H 122 H Lactic Acid Calcium Ionized Calcium Phosphorus Magnesium Direct Bilirubin AST ALT Alkaline Phosphatase Lactate Dehydrogenase Troponin T C-Reactive Protein Total Protein Albumin Prealbumin Triglycerides Cholesterol LDL Cholesterol Direct HDL Cholesterol 25-OH Vitamin D Total PTH Intact Urine pH Urine WBC (Auto) Urine Creatinine Urine Total Protein Fluid Total Protein Vancomycin Trough Rheumatoid Factor Complement C4 Miscellaneous Test Crossmatch 02/17/17 02/17/17 02/17/17 06:00 12:17 17:57 WBC RBC Hgb Hct MCV MCH MCHC RDW Plt Count Lymph % (Auto) [place] % (Auto) Lymph # [place] # Baso # Seg Neutrophils % Seg Neuts % (Manual) Lymphocytes % (Manual) Monocytes % (Manual) Eosinophils % (Manual) Basophils % (Manual) Nucleated RBC % Seg Neutrophils # Seg Neutrophils # Man Lymphocytes # (Manual) Monocytes # (Manual) Eosinophils # (Manual) Basophils # (Manual) PT INR Fibrinogen dRVVT Confirm Interp Factor V Activity POC ABG pH POC ABG pCO2 POC ABG pO2 ABG pO2 ABG HCO3 ABG Base Excess ABG Hemoglobin Oxyhemoglobin Sodium Potassium Chloride Carbon Dioxide BUN 94 H Creatinine 2.3 H Glucose 106 H POC Glucose 173 H 140 H Lactic Acid Calcium Ionized Calcium Phosphorus Magnesium Direct Bilirubin AST ALT Alkaline Phosphatase Lactate Dehydrogenase Troponin T C-Reactive Protein Total Protein Albumin Prealbumin Triglycerides Cholesterol LDL Cholesterol Direct HDL Cholesterol 25-OH Vitamin D Total PTH Intact Urine pH Urine WBC (Auto) Urine Creatinine Urine Total Protein Fluid Total Protein Vancomycin Trough Rheumatoid Factor Complement C4 Miscellaneous Test Crossmatch 02/18/17 02/18/17 02/18/17 00:20 05:30 06:14 WBC RBC Hgb Hct MCV MCH MCHC RDW Plt Count Lymph % (Auto) [place] % (Auto) Lymph # [place] # Baso # Seg Neutrophils % Seg Neuts % (Manual) Lymphocytes % (Manual) Monocytes % (Manual) Eosinophils % (Manual) Basophils % (Manual) Nucleated RBC % Seg Neutrophils # Seg Neutrophils # Man Lymphocytes # (Manual) Monocytes # (Manual) Eosinophils # (Manual) Basophils # (Manual) PT INR Fibrinogen dRVVT Confirm Interp Factor V Activity POC ABG pH POC ABG pCO2 POC ABG pO2 ABG pO2 ABG HCO3 ABG Base Excess ABG Hemoglobin Oxyhemoglobin Sodium 136 L Potassium Chloride 97.5 L Carbon Dioxide BUN 73 H Creatinine 1.9 H Glucose POC Glucose 132 H 106 H Lactic Acid Calcium Ionized Calcium Phosphorus Magnesium Direct Bilirubin AST ALT Alkaline Phosphatase Lactate Dehydrogenase Troponin T C-Reactive Protein Total Protein Albumin Prealbumin Triglycerides Cholesterol LDL Cholesterol Direct HDL Cholesterol 25-OH Vitamin D Total PTH Intact Urine pH Urine WBC (Auto) Urine Creatinine Urine Total Protein Fluid Total Protein Vancomycin Trough Rheumatoid Factor Complement C4 Miscellaneous Test Crossmatch 02/18/17 02/18/17 02/18/17 09:51 11:32 17:59 WBC 13.1 H RBC 2.77 L Hgb 7.6 L Hct 23.9 L MCV MCH MCHC RDW 19.0 H Plt Count Lymph % (Auto) [place] % (Auto) 11.1 H Lymph # [place] # 1.5 H Baso # Seg Neutrophils % Seg Neuts % (Manual) Lymphocytes % (Manual) Monocytes % (Manual) Eosinophils % (Manual) Basophils % (Manual) Nucleated RBC % Seg Neutrophils # 9.1 H Seg Neutrophils # Man Lymphocytes # (Manual) Monocytes # (Manual) Eosinophils # (Manual) Basophils # (Manual) PT INR Fibrinogen dRVVT Confirm Interp Factor V Activity POC ABG pH POC ABG pCO2 POC ABG pO2 ABG pO2 ABG HCO3 ABG Base Excess ABG Hemoglobin Oxyhemoglobin Sodium Potassium Chloride Carbon Dioxide BUN Creatinine Glucose POC Glucose 123 H 119 H Lactic Acid Calcium Ionized Calcium Phosphorus Magnesium Direct Bilirubin AST ALT Alkaline Phosphatase Lactate Dehydrogenase Troponin T C-Reactive Protein Total Protein Albumin Prealbumin Triglycerides Cholesterol LDL Cholesterol Direct HDL Cholesterol 25-OH Vitamin D Total PTH Intact Urine pH Urine WBC (Auto) Urine Creatinine Urine Total Protein Fluid Total Protein Vancomycin Trough Rheumatoid Factor Complement C4 Miscellaneous Test Crossmatch 02/18/17 02/19/17 02/19/17 23:47 05:36 09:45 WBC RBC Hgb Hct MCV MCH 27 L MCHC RDW 19.2 H Plt Count Lymph % (Auto) [place] % (Auto) Lymph # [place] # Baso # Seg Neutrophils % Seg Neuts % (Manual) Lymphocytes % (Manual) Monocytes % (Manual) Eosinophils % (Manual) Basophils % (Manual) Nucleated RBC % Seg Neutrophils # Seg Neutrophils # Man Lymphocytes # (Manual) Monocytes # (Manual) Eosinophils # (Manual) Basophils # (Manual) PT INR Fibrinogen dRVVT Confirm Interp Factor V Activity POC ABG pH POC ABG pCO2 POC ABG pO2 ABG pO2 ABG HCO3 ABG Base Excess ABG Hemoglobin Oxyhemoglobin Sodium Potassium Chloride Carbon Dioxide BUN Creatinine Glucose POC Glucose 110 H 121 H Lactic Acid Calcium Ionized Calcium Phosphorus Magnesium Direct Bilirubin AST ALT Alkaline Phosphatase Lactate Dehydrogenase Troponin T C-Reactive Protein Total Protein Albumin Prealbumin Triglycerides Cholesterol LDL Cholesterol Direct HDL Cholesterol 25-OH Vitamin D Total PTH Intact Urine pH Urine WBC (Auto) Urine Creatinine Urine Total Protein Fluid Total Protein Vancomycin Trough Rheumatoid Factor Complement C4 Miscellaneous Test Crossmatch 02/19/17 02/20/17 02/20/17 09:45 00:10 06:15 WBC RBC Hgb Hct MCV MCH MCHC RDW Plt Count Lymph % (Auto) [place] % (Auto) Lymph # [place] # Baso # Seg Neutrophils % Seg Neuts % (Manual) Lymphocytes % (Manual) Monocytes % (Manual) Eosinophils % (Manual) Basophils % (Manual) Nucleated RBC % Seg Neutrophils # Seg Neutrophils # Man Lymphocytes # (Manual) Monocytes # (Manual) Eosinophils # (Manual) Basophils # (Manual) PT INR Fibrinogen dRVVT Confirm Interp Factor V Activity POC ABG pH POC ABG pCO2 POC ABG pO2 ABG pO2 ABG HCO3 ABG Base Excess ABG Hemoglobin Oxyhemoglobin Sodium 136 L Potassium 5.1 H Chloride 97.6 L Carbon Dioxide 20 L 18 L BUN 110 H 135 H Creatinine 2.6 H 3.2 H Glucose 106 H 110 H POC Glucose 117 H Lactic Acid Calcium Ionized Calcium Phosphorus 4.70 H D 5.60 H Magnesium Direct Bilirubin AST ALT Alkaline Phosphatase Lactate Dehydrogenase Troponin T C-Reactive Protein Total Protein Albumin Prealbumin Triglycerides Cholesterol LDL Cholesterol Direct HDL Cholesterol 25-OH Vitamin D Total PTH Intact Urine pH Urine WBC (Auto) Urine Creatinine Urine Total Protein Fluid Total Protein Vancomycin Trough Rheumatoid Factor Complement C4 Miscellaneous Test Crossmatch 02/20/17 02/20/17 02/21/17 11:30 17:51 00:14 WBC RBC Hgb Hct MCV MCH MCHC RDW Plt Count Lymph % (Auto) [place] % (Auto) Lymph # [place] # Baso # Seg Neutrophils % Seg Neuts % (Manual) Lymphocytes % (Manual) Monocytes % (Manual) Eosinophils % (Manual) Basophils % (Manual) Nucleated RBC % Seg Neutrophils # Seg Neutrophils # Man Lymphocytes # (Manual) Monocytes # (Manual) Eosinophils # (Manual) Basophils # (Manual) PT INR Fibrinogen dRVVT Confirm Interp Factor V Activity POC ABG pH POC ABG pCO2 POC ABG pO2 ABG pO2 ABG HCO3 ABG Base Excess ABG Hemoglobin Oxyhemoglobin Sodium Potassium Chloride Carbon Dioxide BUN Creatinine Glucose POC Glucose 173 H 133 H 125 H Lactic Acid Calcium Ionized Calcium Phosphorus Magnesium Direct Bilirubin AST ALT Alkaline Phosphatase Lactate Dehydrogenase Troponin T C-Reactive Protein Total Protein Albumin Prealbumin Triglycerides Cholesterol LDL Cholesterol Direct HDL Cholesterol 25-OH Vitamin D Total PTH Intact Urine pH Urine WBC (Auto) Urine Creatinine Urine Total Protein Fluid Total Protein Vancomycin Trough Rheumatoid Factor Complement C4 Miscellaneous Test Crossmatch 02/21/17 02/21/17 02/21/17 04:09 05:03 11:58 WBC RBC Hgb Hct MCV MCH MCHC RDW Plt Count Lymph % (Auto) [place] % (Auto) Lymph # [place] # Baso # Seg Neutrophils % Seg Neuts % (Manual) Lymphocytes % (Manual) Monocytes % (Manual) Eosinophils % (Manual) Basophils % (Manual) Nucleated RBC % Seg Neutrophils # Seg Neutrophils # Man Lymphocytes # (Manual) Monocytes # (Manual) Eosinophils # (Manual) Basophils # (Manual) PT INR Fibrinogen dRVVT Confirm Interp Factor V Activity POC ABG pH POC ABG pCO2 POC ABG pO2 ABG pO2 ABG HCO3 ABG Base Excess ABG Hemoglobin Oxyhemoglobin Sodium 135 L Potassium Chloride Carbon Dioxide 20 L BUN 76 H Creatinine 2.0 H Glucose 125 H POC Glucose 134 H 139 H Lactic Acid Calcium Ionized Calcium Phosphorus Magnesium Direct Bilirubin AST ALT Alkaline Phosphatase Lactate Dehydrogenase Troponin T C-Reactive Protein Total Protein Albumin Prealbumin Triglycerides Cholesterol LDL Cholesterol Direct HDL Cholesterol 25-OH Vitamin D Total PTH Intact Urine pH Urine WBC (Auto) Urine Creatinine Urine Total Protein Fluid Total Protein Vancomycin Trough Rheumatoid Factor Complement C4 Miscellaneous Test Crossmatch 02/21/17 02/21/17 02/22/17 17:16 23:41 04:10 WBC RBC Hgb Hct MCV MCH MCHC RDW Plt Count Lymph % (Auto) [place] % (Auto) Lymph # [place] # Baso # Seg Neutrophils % Seg Neuts % (Manual) Lymphocytes % (Manual) Monocytes % (Manual) Eosinophils % (Manual) Basophils % (Manual) Nucleated RBC % Seg Neutrophils # Seg Neutrophils # Man Lymphocytes # (Manual) Monocytes # (Manual) Eosinophils # (Manual) Basophils # (Manual) PT INR Fibrinogen dRVVT Confirm Interp Factor V Activity POC ABG pH POC ABG pCO2 POC ABG pO2 ABG pO2 ABG HCO3 ABG Base Excess ABG Hemoglobin Oxyhemoglobin Sodium 135 L Potassium Chloride 97.7 L Carbon Dioxide 21 L BUN 101 H Creatinine 2.5 H Glucose 116 H POC Glucose 120 H 128 H Lactic Acid Calcium Ionized Calcium Phosphorus Magnesium Direct Bilirubin AST ALT Alkaline Phosphatase Lactate Dehydrogenase Troponin T C-Reactive Protein Total Protein Albumin 1.3 L Prealbumin Triglycerides Cholesterol LDL Cholesterol Direct HDL Cholesterol 25-OH Vitamin D Total PTH Intact Urine pH Urine WBC (Auto) Urine Creatinine Urine Total Protein Fluid Total Protein Vancomycin Trough Rheumatoid Factor Complement C4 Miscellaneous Test Crossmatch 02/22/17 02/22/17 02/22/17 06:03 11:38 18:19 WBC RBC Hgb Hct MCV MCH MCHC RDW Plt Count Lymph % (Auto) [place] % (Auto) Lymph # [place] # Baso # Seg Neutrophils % Seg Neuts % (Manual) Lymphocytes % (Manual) Monocytes % (Manual) Eosinophils % (Manual) Basophils % (Manual) Nucleated RBC % Seg Neutrophils # Seg Neutrophils # Man Lymphocytes # (Manual) Monocytes # (Manual) Eosinophils # (Manual) Basophils # (Manual) PT INR Fibrinogen dRVVT Confirm Interp Factor V Activity POC ABG pH POC ABG pCO2 POC ABG pO2 ABG pO2 ABG HCO3 ABG Base Excess ABG Hemoglobin Oxyhemoglobin Sodium Potassium Chloride Carbon Dioxide BUN Creatinine Glucose POC Glucose 126 H 147 H 121 H Lactic Acid Calcium Ionized Calcium Phosphorus Magnesium Direct Bilirubin AST ALT Alkaline Phosphatase Lactate Dehydrogenase Troponin T C-Reactive Protein Total Protein Albumin Prealbumin Triglycerides Cholesterol LDL Cholesterol Direct HDL Cholesterol 25-OH Vitamin D Total PTH Intact Urine pH Urine WBC (Auto) Urine Creatinine Urine Total Protein Fluid Total Protein Vancomycin Trough Rheumatoid Factor Complement C4 Miscellaneous Test Crossmatch 02/23/17 02/23/17 02/23/17 05:00 05:46 12:27 WBC RBC Hgb Hct MCV MCH MCHC RDW Plt Count Lymph % (Auto) [place] % (Auto) Lymph # [place] # Baso # Seg Neutrophils % Seg Neuts % (Manual) Lymphocytes % (Manual) Monocytes % (Manual) Eosinophils % (Manual) Basophils % (Manual) Nucleated RBC % Seg Neutrophils # Seg Neutrophils # Man Lymphocytes # (Manual) Monocytes # (Manual) Eosinophils # (Manual) Basophils # (Manual) PT INR Fibrinogen dRVVT Confirm Interp Factor V Activity POC ABG pH POC ABG pCO2 POC ABG pO2 ABG pO2 ABG HCO3 ABG Base Excess ABG Hemoglobin Oxyhemoglobin Sodium 136 L Potassium Chloride 97.1 L Carbon Dioxide BUN 50 H Creatinine 1.5 H Glucose POC Glucose 110 H 115 H Lactic Acid Calcium 8.1 L Ionized Calcium Phosphorus 1.90 L D Magnesium Direct Bilirubin AST ALT Alkaline Phosphatase Lactate Dehydrogenase Troponin T C-Reactive Protein Total Protein Albumin Prealbumin Triglycerides Cholesterol LDL Cholesterol Direct HDL Cholesterol 25-OH Vitamin D Total PTH Intact Urine pH Urine WBC (Auto) Urine Creatinine Urine Total Protein Fluid Total Protein Vancomycin Trough Rheumatoid Factor Complement C4 Miscellaneous Test Crossmatch 02/23/17 02/23/17 02/24/17 18:02 23:18 05:04 WBC RBC Hgb Hct MCV MCH MCHC RDW Plt Count Lymph % (Auto) [place] % (Auto) Lymph # [place] # Baso # Seg Neutrophils % Seg Neuts % (Manual) Lymphocytes % (Manual) Monocytes % (Manual) Eosinophils % (Manual) Basophils % (Manual) Nucleated RBC % Seg Neutrophils # Seg Neutrophils # Man Lymphocytes # (Manual) Monocytes # (Manual) Eosinophils # (Manual) Basophils # (Manual) PT INR Fibrinogen dRVVT Confirm Interp Factor V Activity POC ABG pH POC ABG pCO2 POC ABG pO2 ABG pO2 ABG HCO3 ABG Base Excess ABG Hemoglobin Oxyhemoglobin Sodium Potassium Chloride Carbon Dioxide BUN Creatinine Glucose POC Glucose 111 H 126 H 121 H Lactic Acid Calcium Ionized Calcium Phosphorus Magnesium Direct Bilirubin AST ALT Alkaline Phosphatase Lactate Dehydrogenase Troponin T C-Reactive Protein Total Protein Albumin Prealbumin Triglycerides Cholesterol LDL Cholesterol Direct HDL Cholesterol 25-OH Vitamin D Total PTH Intact Urine pH Urine WBC (Auto) Urine Creatinine Urine Total Protein Fluid Total Protein Vancomycin Trough Rheumatoid Factor Complement C4 Miscellaneous Test Crossmatch 02/24/17 02/24/17 02/24/17 05:20 10:05 11:34 WBC RBC 2.95 L Hgb 8.4 L Hct 25.7 L MCV MCH MCHC RDW 20.8 H Plt Count Lymph % (Auto) [place] % (Auto) Lymph # [place] # Baso # Seg Neutrophils % 71.8 H Seg Neuts % (Manual) Lymphocytes % (Manual) Monocytes % (Manual) Eosinophils % (Manual) Basophils % (Manual) Nucleated RBC % Seg Neutrophils # Seg Neutrophils # Man Lymphocytes # (Manual) Monocytes # (Manual) Eosinophils # (Manual) Basophils # (Manual) PT INR Fibrinogen dRVVT Confirm Interp Factor V Activity POC ABG pH POC ABG pCO2 POC ABG pO2 ABG pO2 ABG HCO3 ABG Base Excess ABG Hemoglobin Oxyhemoglobin Sodium 136 L Potassium Chloride 95.5 L Carbon Dioxide BUN 76 H Creatinine 2.2 H Glucose 109 H POC Glucose 123 H Lactic Acid Calcium Ionized Calcium Phosphorus Magnesium Direct Bilirubin AST ALT Alkaline Phosphatase Lactate Dehydrogenase Troponin T C-Reactive Protein Total Protein Albumin Prealbumin Triglycerides Cholesterol LDL Cholesterol Direct HDL Cholesterol 25-OH Vitamin D Total PTH Intact Urine pH Urine WBC (Auto) Urine Creatinine Urine Total Protein Fluid Total Protein Vancomycin Trough Rheumatoid Factor Complement C4 Miscellaneous Test Crossmatch 02/24/17 02/24/17 02/25/17 17:43 23:02 05:00 WBC RBC Hgb Hct MCV MCH MCHC RDW Plt Count Lymph % (Auto) [place] % (Auto) Lymph # [place] # Baso # Seg Neutrophils % Seg Neuts % (Manual) Lymphocytes % (Manual) Monocytes % (Manual) Eosinophils % (Manual) Basophils % (Manual) Nucleated RBC % Seg Neutrophils # Seg Neutrophils # Man Lymphocytes # (Manual) Monocytes # (Manual) Eosinophils # (Manual) Basophils # (Manual) PT INR Fibrinogen dRVVT Confirm Interp Factor V Activity POC ABG pH POC ABG pCO2 POC ABG pO2 ABG pO2 ABG HCO3 ABG Base Excess ABG Hemoglobin Oxyhemoglobin Sodium Potassium Chloride 96.8 L Carbon Dioxide BUN 94 H Creatinine 2.8 H Glucose 118 H POC Glucose 128 H 144 H Lactic Acid Calcium Ionized Calcium Phosphorus Magnesium Direct Bilirubin AST ALT Alkaline Phosphatase Lactate Dehydrogenase Troponin T C-Reactive Protein Total Protein Albumin Prealbumin Triglycerides Cholesterol LDL Cholesterol Direct HDL Cholesterol 25-OH Vitamin D Total PTH Intact Urine pH Urine WBC (Auto) Urine Creatinine Urine Total Protein Fluid Total Protein Vancomycin Trough Rheumatoid Factor Complement C4 Miscellaneous Test Crossmatch 02/25/17 02/25/17 02/25/17 05:32 11:44 18:18 WBC RBC Hgb Hct MCV MCH MCHC RDW Plt Count Lymph % (Auto) [place] % (Auto) Lymph # [place] # Baso # Seg Neutrophils % Seg Neuts % (Manual) Lymphocytes % (Manual) Monocytes % (Manual) Eosinophils % (Manual) Basophils % (Manual) Nucleated RBC % Seg Neutrophils # Seg Neutrophils # Man Lymphocytes # (Manual) Monocytes # (Manual) Eosinophils # (Manual) Basophils # (Manual) PT INR Fibrinogen dRVVT Confirm Interp Factor V Activity POC ABG pH POC ABG pCO2 POC ABG pO2 ABG pO2 ABG HCO3 ABG Base Excess ABG Hemoglobin Oxyhemoglobin Sodium Potassium Chloride Carbon Dioxide BUN Creatinine Glucose POC Glucose 118 H 106 H 210 H Lactic Acid Calcium Ionized Calcium Phosphorus Magnesium Direct Bilirubin AST ALT Alkaline Phosphatase Lactate Dehydrogenase Troponin T C-Reactive Protein Total Protein Albumin Prealbumin Triglycerides Cholesterol LDL Cholesterol Direct HDL Cholesterol 25-OH Vitamin D Total PTH Intact Urine pH Urine WBC (Auto) Urine Creatinine Urine Total Protein Fluid Total Protein Vancomycin Trough Rheumatoid Factor Complement C4 Miscellaneous Test Crossmatch 02/26/17 02/26/17 02/26/17 00:07 05:14 12:07 WBC RBC Hgb Hct MCV MCH MCHC RDW Plt Count Lymph % (Auto) [place] % (Auto) Lymph # [place] # Baso # Seg Neutrophils % Seg Neuts % (Manual) Lymphocytes % (Manual) Monocytes % (Manual) Eosinophils % (Manual) Basophils % (Manual) Nucleated RBC % Seg Neutrophils # Seg Neutrophils # Man Lymphocytes # (Manual) Monocytes # (Manual) Eosinophils # (Manual) Basophils # (Manual) PT INR Fibrinogen dRVVT Confirm Interp Factor V Activity POC ABG pH POC ABG pCO2 POC ABG pO2 ABG pO2 ABG HCO3 ABG Base Excess ABG Hemoglobin Oxyhemoglobin Sodium Potassium Chloride Carbon Dioxide BUN Creatinine Glucose POC Glucose 136 H 142 H 132 H Lactic Acid Calcium Ionized Calcium Phosphorus Magnesium Direct Bilirubin AST ALT Alkaline Phosphatase Lactate Dehydrogenase Troponin T C-Reactive Protein Total Protein Albumin Prealbumin Triglycerides Cholesterol LDL Cholesterol Direct HDL Cholesterol 25-OH Vitamin D Total PTH Intact Urine pH Urine WBC (Auto) Urine Creatinine Urine Total Protein Fluid Total Protein Vancomycin Trough Rheumatoid Factor Complement C4 Miscellaneous Test Crossmatch 02/26/17 02/26/17 02/27/17 18:35 23:54 06:25 WBC RBC Hgb Hct MCV MCH MCHC RDW Plt Count Lymph % (Auto) [place] % (Auto) Lymph # [place] # Baso # Seg Neutrophils % Seg Neuts % (Manual) Lymphocytes % (Manual) Monocytes % (Manual) Eosinophils % (Manual) Basophils % (Manual) Nucleated RBC % Seg Neutrophils # Seg Neutrophils # Man Lymphocytes # (Manual) Monocytes # (Manual) Eosinophils # (Manual) Basophils # (Manual) PT INR Fibrinogen dRVVT Confirm Interp Factor V Activity POC ABG pH POC ABG pCO2 POC ABG pO2 ABG pO2 ABG HCO3 ABG Base Excess ABG Hemoglobin Oxyhemoglobin Sodium Potassium Chloride Carbon Dioxide BUN Creatinine Glucose POC Glucose 155 H 150 H 138 H Lactic Acid Calcium Ionized Calcium Phosphorus Magnesium Direct Bilirubin AST ALT Alkaline Phosphatase Lactate Dehydrogenase Troponin T C-Reactive Protein Total Protein Albumin Prealbumin Triglycerides Cholesterol LDL Cholesterol Direct HDL Cholesterol 25-OH Vitamin D Total PTH Intact Urine pH Urine WBC (Auto) Urine Creatinine Urine Total Protein Fluid Total Protein Vancomycin Trough Rheumatoid Factor Complement C4 Miscellaneous Test Crossmatch 02/27/17 02/27/17 02/27/17 08:50 11:50 17:38 WBC RBC Hgb Hct MCV MCH MCHC RDW Plt Count Lymph % (Auto) [place] % (Auto) Lymph # [place] # Baso # Seg Neutrophils % Seg Neuts % (Manual) Lymphocytes % (Manual) Monocytes % (Manual) Eosinophils % (Manual) Basophils % (Manual) Nucleated RBC % Seg Neutrophils # Seg Neutrophils # Man Lymphocytes # (Manual) Monocytes # (Manual) Eosinophils # (Manual) Basophils # (Manual) PT INR Fibrinogen dRVVT Confirm Interp Factor V Activity POC ABG pH POC ABG pCO2 POC ABG pO2 ABG pO2 ABG HCO3 ABG Base Excess ABG Hemoglobin Oxyhemoglobin Sodium Potassium 3.2 L Chloride Carbon Dioxide BUN 95 H Creatinine 2.7 H Glucose 179 H POC Glucose 150 H 133 H Lactic Acid Calcium Ionized Calcium Phosphorus Magnesium Direct Bilirubin AST ALT Alkaline Phosphatase Lactate Dehydrogenase Troponin T C-Reactive Protein Total Protein Albumin Prealbumin Triglycerides Cholesterol LDL Cholesterol Direct HDL Cholesterol 25-OH Vitamin D Total PTH Intact Urine pH Urine WBC (Auto) Urine Creatinine Urine Total Protein Fluid Total Protein Vancomycin Trough Rheumatoid Factor Complement C4 Miscellaneous Test Crossmatch 02/27/17 02/28/17 02/28/17 23:55 05:23 06:10 WBC RBC Hgb Hct MCV MCH MCHC RDW Plt Count Lymph % (Auto) [place] % (Auto) Lymph # [place] # Baso # Seg Neutrophils % Seg Neuts % (Manual) Lymphocytes % (Manual) Monocytes % (Manual) Eosinophils % (Manual) Basophils % (Manual) Nucleated RBC % Seg Neutrophils # Seg Neutrophils # Man Lymphocytes # (Manual) Monocytes # (Manual) Eosinophils # (Manual) Basophils # (Manual) PT INR Fibrinogen dRVVT Confirm Interp Factor V Activity POC ABG pH POC ABG pCO2 POC ABG pO2 ABG pO2 ABG HCO3 ABG Base Excess ABG Hemoglobin Oxyhemoglobin Sodium 134 L Potassium 3.0 L Chloride 94.9 L Carbon Dioxide BUN 53 H Creatinine 1.9 H Glucose 138 H POC Glucose 134 H 164 H Lactic Acid Calcium Ionized Calcium Phosphorus 2.00 L D Magnesium Direct Bilirubin AST ALT Alkaline Phosphatase Lactate Dehydrogenase Troponin T C-Reactive Protein Total Protein Albumin Prealbumin Triglycerides Cholesterol LDL Cholesterol Direct HDL Cholesterol 25-OH Vitamin D Total PTH Intact Urine pH Urine WBC (Auto) Urine Creatinine Urine Total Protein Fluid Total Protein Vancomycin Trough Rheumatoid Factor Complement C4 Miscellaneous Test Crossmatch 02/28/17 02/28/17 02/28/17 12:18 17:54 23:47 WBC RBC Hgb Hct MCV MCH MCHC RDW Plt Count Lymph % (Auto) [place] % (Auto) Lymph # [place] # Baso # Seg Neutrophils % Seg Neuts % (Manual) Lymphocytes % (Manual) Monocytes % (Manual) Eosinophils % (Manual) Basophils % (Manual) Nucleated RBC % Seg Neutrophils # Seg Neutrophils # Man Lymphocytes # (Manual) Monocytes # (Manual) Eosinophils # (Manual) Basophils # (Manual) PT INR Fibrinogen dRVVT Confirm Interp Factor V Activity POC ABG pH POC ABG pCO2 POC ABG pO2 ABG pO2 ABG HCO3 ABG Base Excess ABG Hemoglobin Oxyhemoglobin Sodium Potassium Chloride Carbon Dioxide BUN Creatinine Glucose POC Glucose 135 H 140 H 144 H Lactic Acid Calcium Ionized Calcium Phosphorus Magnesium Direct Bilirubin AST ALT Alkaline Phosphatase Lactate Dehydrogenase Troponin T C-Reactive Protein Total Protein Albumin Prealbumin Triglycerides Cholesterol LDL Cholesterol Direct HDL Cholesterol 25-OH Vitamin D Total PTH Intact Urine pH Urine WBC (Auto) Urine Creatinine Urine Total Protein Fluid Total Protein Vancomycin Trough Rheumatoid Factor Complement C4 Miscellaneous Test Crossmatch 03/01/17 03/01/17 03/01/17 04:00 12:02 17:13 WBC RBC Hgb Hct MCV MCH MCHC RDW Plt Count Lymph % (Auto) [place] % (Auto) Lymph # [place] # Baso # Seg Neutrophils % Seg Neuts % (Manual) Lymphocytes % (Manual) Monocytes % (Manual) Eosinophils % (Manual) Basophils % (Manual) Nucleated RBC % Seg Neutrophils # Seg Neutrophils # Man Lymphocytes # (Manual) Monocytes # (Manual) Eosinophils # (Manual) Basophils # (Manual) PT INR Fibrinogen dRVVT Confirm Interp Factor V Activity POC ABG pH POC ABG pCO2 POC ABG pO2 ABG pO2 ABG HCO3 ABG Base Excess ABG Hemoglobin Oxyhemoglobin Sodium Potassium 3.0 L Chloride 97.0 L Carbon Dioxide BUN 81 H Creatinine 2.6 H Glucose 121 H POC Glucose 165 H 126 H Lactic Acid Calcium Ionized Calcium Phosphorus Magnesium Direct Bilirubin AST ALT Alkaline Phosphatase Lactate Dehydrogenase Troponin T C-Reactive Protein Total Protein Albumin Prealbumin Triglycerides Cholesterol LDL Cholesterol Direct HDL Cholesterol 25-OH Vitamin D Total PTH Intact Urine pH Urine WBC (Auto) Urine Creatinine Urine Total Protein Fluid Total Protein Vancomycin Trough Rheumatoid Factor Complement C4 Miscellaneous Test Crossmatch 03/02/17 03/02/17 03/02/17 00:10 03:05 05:20 WBC RBC Hgb Hct MCV MCH MCHC RDW Plt Count Lymph % (Auto) [place] % (Auto) Lymph # [place] # Baso # Seg Neutrophils % Seg Neuts % (Manual) Lymphocytes % (Manual) Monocytes % (Manual) Eosinophils % (Manual) Basophils % (Manual) Nucleated RBC % Seg Neutrophils # Seg Neutrophils # Man Lymphocytes # (Manual) Monocytes # (Manual) Eosinophils # (Manual) Basophils # (Manual) PT INR Fibrinogen dRVVT Confirm Interp Factor V Activity POC ABG pH POC ABG pCO2 POC ABG pO2 ABG pO2 ABG HCO3 ABG Base Excess ABG Hemoglobin Oxyhemoglobin Sodium Potassium 3.0 L Chloride Carbon Dioxide BUN 41 H Creatinine 1.6 H Glucose 130 H POC Glucose 129 H 173 H Lactic Acid Calcium Ionized Calcium Phosphorus 1.70 L D Magnesium 1.40 L Direct Bilirubin AST ALT Alkaline Phosphatase Lactate Dehydrogenase Troponin T C-Reactive Protein Total Protein Albumin Prealbumin Triglycerides Cholesterol LDL Cholesterol Direct HDL Cholesterol 25-OH Vitamin D Total PTH Intact Urine pH Urine WBC (Auto) Urine Creatinine Urine Total Protein Fluid Total Protein Vancomycin Trough Rheumatoid Factor Complement C4 Miscellaneous Test Crossmatch Allied health notes reviewed: nursing
--- NOTE | 2017-03-02 11:34 | Progress Note ---
Assessment and Plan Assessment and plan: Patient is 46-year-old woman with a history of hypertension, diabetes, asthma, hyperlipidemia, chronic kidney disease and anxiety , who was brought in by family because, she couldn't get her words out, her face was also twisted, she was admitted for acute CVA and accelerated hypertension, she had a hx of poor adherence with her medications, and uncontrolled htn. Patient's SBP on admission was noted be greater than 260. TPA was started but this was discontinued after 5 minutes because her blood pressure became uncontrolled. The TPA was not initiated again because the patient was outside the TPA window. Fever case dw ID - Likely due to recurrent Enterococcus bacteremia should r/o endocarditis -obtain blood cx, TTE, and on vanco Status post cardiac arrest , 11/21/16 on Mechanical ventilation >96 hrs, >3 months Vent Dependant Respirtory failure secodnary to Anoxic Brain injury S/P Tracheostomy Severe Sepsis with septic shock; has completed multiple courses of abx Surgical wound infection/gram-negative sepsis/candidemia/peritonitis - On TPN ESRD - on HD - Cr 1.9 today Acute CVA with infarct - Neurology input appreciated - CT shows continued evolution of left MCA infarct with slight mass effect and edema, and there is no hemorrhage - PRINCE showed hyperdynamic with ef of 75%, neither clot nor septal defect seen - MRA Brain shows near complete occlusion of M2 and M3 of the left MCA - Repeat CT scan done on 09/11, shows stable findings - carotid doppler negative - Echo shows preserved systolic function but does show some left ventricular diastolic dysfunction - continue asa and statin Persistent vegetative state - This patient's needs placement at SNF - She was denied for LTACH Nosocomial acquired aspiration pneumonia/sepsis/UTI/PERITONITIS - Has been on multiple antibiotics, expect recurrent sepsis due to now known Bowel perforation not amendable to surgery due to clinical condition A. fib with RVR -On amio drip, cannot change to PO due to persistent nausea and vomiting Diabetes type 2. -Continue sliding-scale regular insulin and Accu-Cheks. Hyperlipidemia. Continue statin Severe Protein calorie Malnutrition/Adult failure to thrive - TPN Anemia requiring multiple transfusions/acute blood loss -stable, keep hg above 7 Sacral decubitus ulcer - Status post debridement -Wound vac in place Disposition. Very poor prognosis. DNR - The high probability of a clinically significant, sudden or life threatening deterioration of the [neurologic, CV] system(s) required my full and direct attention, intervention and personal management. The aggregate critical care time was [35] minutes. This time is in addition to time spent performing reported procedures but includes the following: [x] Data Review and interpretation [x] Patient assessment and monitoring of vital signs [x] Documentation [x] Medication orders and management History Interval history: patient seen and examined, remains unresponsive on the ventilator. febrile overnight, no vomiting was tachypneic and tachycardic overnight Hospitalist Physical - Physical exam Narrative exam: GEN: Ill appearing, trach, staring into space,, non purposeful movement NECK: SUPPLE, trach in place, ngt in place and to suction. CVS:Irregular Irregular with LUNGS/CHEST: NORMAL CHEST EXPANSION B, GOOD AIR ENTRY B, tachypena ABD: SOFT, no grimise on abdominal palpation, Ostomy bags at two side by side fistula site. GBS, NO REBOUND OR GUARDING, peg tube in place EXT/SKIN: NO SIGNIFICANT EDEMA BUT WITH UNSTAGEABLE SACRAL DECUB, wound vac inplace MSK: +spontaneous non purposeful movement NEURO: on a ventilator and unresponsive despite being off sedation PSY: Comatose, - Constitutional Vitals: Temp Pulse Resp BP Pulse Ox 98.4 F 118 H 28 H 96/55 99 03/02/17 08:00 03/02/17 11:00 03/02/17 11:00 03/02/17 11:00 03/02/17 11:00 General appearance: Present: no acute distress, well-nourished Results - Labs CBC & Chem 7: 02/24/17 10:05 03/02/17 03:05 Labs: Laboratory Last Values WBC 10.2 K/mm3 (4.5-11.0) 02/24/17 10:05 RBC 2.95 M/mm3 (3.65-5.03) L 02/24/17 10:05 Hgb 8.4 gm/dl (10.1-14.3) L 02/24/17 10:05 Hct 25.7 % (30.3-42.9) L 02/24/17 10:05 MCV 87 fl (79-97) 02/24/17 10:05 MCH 28 pg (28-32) 02/24/17 10:05 MCHC 33 % (30-34) 02/24/17 10:05 RDW 20.8 % (13.2-15.2) H 02/24/17 10:05 Plt Count 333 K/mm3 (140-440) 02/24/17 10:05 Lymph % (Auto) 19.8 % (13.4-35.0) 02/24/17 10:05 Benzie % (Auto) 7.2 % (0.0-7.3) 02/24/17 10:05 Eos % (Auto) 0.7 % (0.0-4.3) 02/24/17 10:05 Baso % (Auto) 0.5 % (0.0-1.8) 02/24/17 10:05 Lymph # 2.0 K/mm3 (1.2-5.4) 02/24/17 10:05 Benzie # 0.7 K/mm3 (0.0-0.8) 02/24/17 10:05 Eos # 0.1 K/mm3 (0.0-0.4) 02/24/17 10:05 Baso # 0.0 K/mm3 (0.0-0.1) 02/24/17 10:05 Add Manual Diff Complete 12/19/16 05:02 Total Counted 100 12/19/16 05:02 Seg Neutrophils % 71.8 % (40.0-70.0) H 02/24/17 10:05 Seg Neuts % (Manual) 64.0 % (40.0-70.0) 12/19/16 05:02 Band Neutrophils % 15.0 % 12/19/16 05:02 Lymphocytes % (Manual) 13.0 % (13.4-35.0) L 12/19/16 05:02 Reactive Lymphs % (Man) 0 % 12/19/16 05:02 Monocytes % (Manual) 7.0 % (0.0-7.3) 12/19/16 05:02 Eosinophils % (Manual) 0 % (0.0-4.3) 12/19/16 05:02 Basophils % (Manual) 1.0 % (0.0-1.8) 12/19/16 05:02 Metamyelocytes % 0 % 12/19/16 05:02 Myelocytes % 0 % 12/19/16 05:02 Promyelocytes % 0 % 12/19/16 05:02 Blast Cells % 0 % 12/19/16 05:02 Nucleated RBC % 1.0 % (0.0-0.9) H 12/19/16 05:02 Seg Neutrophils # 7.3 K/mm3 (1.8-7.7) 02/24/17 10:05 Seg Neutrophils # Man 12.9 K/mm3 (1.8-7.7) H 12/19/16 05:02 Band Neutrophils # 3.0 K/mm3 12/19/16 05:02 Lymphocytes # (Manual) 2.6 K/mm3 (1.2-5.4) 12/19/16 05:02 Abs React Lymphs (Man) 0.0 K/mm3 12/19/16 05:02 Monocytes # (Manual) 1.4 K/mm3 (0.0-0.8) H 12/19/16 05:02 Eosinophils # (Manual) 0.0 K/mm3 (0.0-0.4) 12/19/16 05:02 Basophils # (Manual) 0.2 K/mm3 (0.0-0.1) H 12/19/16 05:02 Metamyelocytes # 0.0 K/mm3 12/19/16 05:02 Myelocytes # 0.0 K/mm3 12/19/16 05:02 Promyelocytes # 0.0 K/mm3 12/19/16 05:02 Blast Cells # 0.0 K/mm3 12/19/16 05:02 Pathologist Review 09/13/16 04:00 WBC Morphology Not Reportable 12/19/16 05:02 Hypersegmented Neuts Not Reportable 12/19/16 05:02 Hyposegmented Neuts Not Reportable 12/19/16 05:02 Hypogranular Neuts Not Reportable 12/19/16 05:02 Smudge Cells Not Reportable 12/19/16 05:02 Toxic Granulation Not Reportable 12/19/16 05:02 Toxic Vacuolation Not Reportable 12/19/16 05:02 Dohle Bodies Not Reportable 12/19/16 05:02 Pelger-Huet Anomaly Not Reportable 12/19/16 05:02 Jasmina Rods Not Reportable 12/19/16 05:02 Platelet Estimate Consistent w auto 12/19/16 05:02 Clumped Platelets Not Reportable 12/19/16 05:02 Plt Clumps, EDTA Not Reportable 12/19/16 05:02 Large Platelets Not Reportable 12/19/16 05:02 Giant Platelets Not Reportable 12/19/16 05:02 Platelet Satelliting Not Reportable 12/19/16 05:02 Plt Morphology Comment Not Reportable 12/19/16 05:02 RBC Morphology Not Reportable 12/19/16 05:02 Dimorphic RBCs Not Reportable 12/19/16 05:02 Polychromasia Not Reportable 12/19/16 05:02 Hypochromasia Not Reportable 12/19/16 05:02 Poikilocytosis Not Reportable 12/19/16 05:02 Anisocytosis Not Reportable 12/19/16 05:02 Microcytosis Not Reportable 12/19/16 05:02 Macrocytosis Not Reportable 12/19/16 05:02 Spherocytes Not Reportable 12/19/16 05:02 Pappenheimer Bodies Not Reportable 12/19/16 05:02 Sickle Cells Not Reportable 12/19/16 05:02 Target Cells Few 12/19/16 05:02 Tear Drop Cells Not Reportable 12/19/16 05:02 Ovalocytes Not Reportable 12/19/16 05:02 Stomatocytes Rare 12/03/16 04:00 Helmet Cells Not Reportable 12/19/16 05:02 [place] Bodies Not Reportable 12/19/16 05:02 [place] Rings Not Reportable 12/19/16 05:02 [place] Cells Not Reportable 12/19/16 05:02 Bite Cells Not Reportable 12/19/16 05:02 Crenated Cell Not Reportable 12/19/16 05:02 Elliptocytes Not Reportable 12/19/16 05:02 Acanthocytes (Spur) Not Reportable 12/19/16 05:02 Rouleaux Not Reportable 12/19/16 05:02 Hemoglobin C Crystals Not Reportable 12/19/16 05:02 Schistocytes Not Reportable 12/19/16 05:02 Malaria parasites Not Reportable 12/19/16 05:02 ESR > 140.0 mm/Hr (0-20) 09/08/16 11:48 Jun Bodies Not Reportable 12/19/16 05:02 Hem Pathologist Commnt No 12/19/16 05:02 PT 15.4 Sec. (12.2-14.9) H 01/13/17 15:50 INR 1.16 (0.87-1.13) H 01/13/17 15:50 APTT 33.0 Sec. (24.2-36.6) 10/09/16 03:45 Thrombin Time 16.8 Sec. (15.1-19.6) 09/03/16 00:10 Fibrinogen 750 mg/dl (211-480) H 09/08/16 11:48 Lupus Anticoagulant see below 09/12/16 09:59 LA PTT Baseline See scanned report 09/12/16 09:59 dRVVT Confirm Interp Positive (Negative) H 09/12/16 09:59 dRVVT Screen 50:50 See scanned report 09/12/16 09:59 dRVVT Mix Interpret See scanned report 09/12/16 09:59 Protein C Antigen 122 % (70-140) 09/08/16 15:35 Free Protein S 97 % normal (50-147) 09/08/16 15:35 Total Protein S 109 % (70-140) 09/08/16 15:35 Antithrombin III Ag 100 % (80-120) 09/08/16 15:35 Heparin Anti-Xa, Unfract Negative (Negative) 09/29/16 13:35 Factor V Activity 182 % (65-150) H 09/08/16 15:35 POC ABG pH 7.436 (7.35-7.45) 01/20/17 12: ABG pH 7.450 pH Units (7.350-7.450) 12/05/16 Unknown POC ABG pCO2 35.3 (35-45) 01/20/17 12:17 ABG pCO2 29.6 mm Hg 12/05/16 Unknown POC ABG pO2 70 (80-105) L 01/20/17 12: ABG pO2 75.2 mm Hg (80.0-90.0) L 12/05/16 Unknown POC ABG HCO3 23.8 01/20/17 12: ABG HCO3 20.1 mmol/L (20.0-26.0) 12/05/16 Unknown POC ABG Total CO2 25 01/20/17 12:17 POC ABG O2 Sat 94 01/20/17 12:17 ABG O2 Saturation 96.8 % (95.0-99.0) 12/05/16 Unknown ABG O2 Content 9.9 (0.0-44) 12/05/16 Unknown POC ABG Base Excess 0 01/20/17 12:17 ABG Base Excess -3.4 mmol/L (-2.0-3.0) L 12/05/16 Unknown ABG Hemoglobin 7.4 gm/dl (12.0-16.0) L 12/05/16 Unknown ABG Carboxyhemoglobin 1.8 % (0.0-5.0) 12/05/16 Unknown ABG Methemoglobin 0.6 % (0.0-1.5) 12/05/16 Unknown Oxyhemoglobin 94.5 % (95.0-99.0) L 12/05/16 Unknown FiO2 30 % 01/20/17 12:17 Sodium 138 mmol/L (137-145) 03/02/17 03:05 Potassium 3.0 mmol/L (3.6-5.0) L 03/02/17 03:05 Chloride 98.1 mmol/L (98-107) 03/02/17 03:05 Carbon Dioxide 23 mmol/L (22-30) 03/02/17 03:05 Anion Gap 20 mmol/L 03/02/17 03:05 BUN 41 mg/dL (7-17) H 03/02/17 03:05 Creatinine 1.6 mg/dL (0.7-1.2) H 03/02/17 03:05 Estimated GFR 42 ml/min 03/02/17 03:05 BUN/Creatinine Ratio 26 % 03/02/17 03:05 Glucose 130 mg/dL (65-100) H 03/02/17 03:05 POC Glucose 173 (70-105) H 03/02/17 05:20 Osmolality 351 Mosm/kg 09/16/16 11:47 Lactic Acid 2.30 mmol/L (0.7-2.0) H* 01/09/17 08:22 Calcium 9.1 mg/dL (8.4-10.2) 03/02/17 03:05 Ionized Calcium 6.0 mg/dL (4.8-5.6) H 02/15/17 19:08 Phosphorus 1.70 mg/dL (2.5-4.5) L D 03/02/17 03:05 Magnesium 1.40 mg/dL (1.7-2.3) L 03/02/17 03:05 Total Bilirubin 0.50 mg/dL (0.1-1.2) 02/22/17 04:10 Direct Bilirubin 0.2 mg/dL (0-0.2) 01/28/17 04:00 Indirect Bilirubin 0.3 mg/dL 01/28/17 04:00 AST 10 units/L (5-40) 02/22/17 04:10 ALT 7 units/L (7-56) 02/22/17 04:10 Alkaline Phosphatase 95 units/L (35-129) 02/22/17 04:10 Ammonia 27.0 umol/L (25-60) 09/07/16 08:37 Lactate Dehydrogenase 170 units/L (91-180) 01/13/17 15:50 Total Creatine Kinase 121 units/L (30-135) 09/29/16 20:12 CK-MB (CK-2) < 1.0 ng/mL (0.0-4.0) 09/29/16 20:12 CK-MB (CK-2) Rel Index 0.8 (0-4) 09/29/16 20:12 Troponin T 0.204 ng/mL (0.00-0.029) H* 09/29/16 20:12 C-Reactive Protein 8.10 mg/dL (0.00-1.30) H 01/31/17 11:12 Total Protein 7.4 g/dL (6.3-8.2) 02/22/17 04:10 Albumin 1.3 g/dL (3.9-5) L 02/22/17 04:10 Albumin/Globulin Ratio 0.2 % 02/22/17 04:10 Prealbumin 0.110 g/L (0.200-0.400) L 12/29/16 05:15 Triglycerides 55 mg/dL (2-149) 02/06/17 04:45 Cholesterol 31 mg/dL (50-199) L 09/29/16 20:12 LDL Cholesterol Direct 4 mg/dL (50-130) L 09/29/16 20:12 HDL Cholesterol 3 mg/dL (40-59) L 09/29/16 20:12 Cholesterol/HDL Ratio 10.33 % 09/29/16 20:12 Angiotensin Convert Enz See scanned report 09/08/16 11:48 Renin 0.99 ng/mL/h (0.25-5.82) 10/07/16 10:56 Aldosterone <1 ng/dL () 10/07/16 10:56 Aldosterone/Renin Dir see below 10/07/16 10:56 Serotonin Release Assay See scanned report 09/29/16 13:35 25-OH Vitamin D Total 13 ng/mL (30-100) L 02/15/17 19:08 25-Hydroxy Vitamin D2 . 02/15/17 19:08 25-Hydroxy Vitamin D3 . 02/15/17 19:08 TSH 1.010 mlU/mL (0.270-4.200) 09/07/16 08:37 HCG, Qual Negative (Negative) 09/03/16 00:10 PTH Intact 10.88 pg/mL (15-65) L 02/15/17 19:08 Total Cortisol 18.2 mcg/dL () 02/02/17 20:09 Urine Color Yellow (Yellow) 11/05/16 13:09 Urine Turbidity Clear (Clear) 11/05/16 13:09 Urine pH 9.0 (5.0-7.0) H 11/05/16 13:09 Ur Specific [place] 1.011 (1.003-1.030) 11/05/16 13:09 Urine Protein 100 mg/dl mg/dL (Negative) 11/05/16 13:09 Urine Glucose (UA) Neg mg/dL (Negative) 11/05/16 13:09 Urine Ketones Neg mg/dL (Negative) 11/05/16 13:09 Urine Blood Neg (Negative) 11/05/16 13:09 Urine Nitrite Neg (Negative) 11/05/16 13:09 Urine Bilirubin Neg (Negative) 11/05/16 13:09 Urine Urobilinogen < 2.0 mg/dL (<2.0) 11/05/16 13:09 Ur Leukocyte Esterase Neg (Negative) 11/05/16 13:09 Urine WBC (Auto) 4.0 /HPF (0.0-6.0) 11/05/16 13:09 Urine RBC (Auto) 1.0 /HPF (0.0-6.0) 11/05/16 13:09 U Epithel Cells (Auto) 1.0 /HPF (0-13.0) 10/07/16 18:30 Urine Bacteria (Auto) 4+ /HPF (Negative) 11/05/16 13:09 Urine WBC Clumps 2+ /HPF 09/07/16 02:47 Hyaline Casts 4 /LPF 09/07/16 02:47 Urine Mucus Few /HPF 10/07/16 18:30 Urine Yeast (Budding) 3+ /HPF 10/07/16 18:30 Urine Eosinophils None seen (None Seen) 09/07/16 16:00 Urine Total Volume 950 11/12/16 10:18 Urine Creatinine 19.7 mg/dL (0.1-20.0) 11/12/16 10:18 Height (in) 65.0 inches 11/12/16 10:18 Weight (lb) 181.0 lbs 11/12/16 10:18 Creatinine Clearance 5 11/12/16 10:18 Urine Sodium 36 mEq/L 09/16/16 19:19 Urine Total Protein 16 mg/dL (5-11.8) H 09/16/16 19:19 Fluid Type Pleural 01/13/17 12:10 Fluid Color Yellow 01/13/17 12:10 Fluid Appearance Hazy 01/13/17 12:10 Fluid WBC 182 /mm3 01/13/17 12:10 Fluid RBC 41 /mm3 01/13/17 12:10 Fluid Seg Neutrophils 85.0 % 01/13/17 12:10 Fluid Lymphocytes 8.0 % 01/13/17 12:10 Fluid Reactive Lymphs 0 % 01/13/17 12:10 Fluid Monocytes 6.0 % 01/13/17 12:10 Fluid Eosinophils 1.0 % 01/13/17 12:10 Fluid Basophils 0 % 01/13/17 12:10 Fluid Total Protein 3.0 (15.0-45.0) L 01/13/17 12:10 Fluid LDH 1322 01/13/17 12:10 Fluid Comment Diff performed 01/13/17 12:10 Vancomycin Trough 2.3 ug/mL (5.0-20.0) L 09/21/16 13:00 Random Vancomycin 16.5 ug/mL (0-40.0) 11/28/16 09:45 Urine Opiates Screen Presumptive negative 09/03/16 15:11 Urine Methadone Screen Presumptive positive 09/03/16 15:11 Ur Barbiturates Screen Presumptive positive 09/03/16 15:11 Ur Phencyclidine Scrn Presumptive negative 09/03/16 15:11 Ur Amphetamines Screen Presumptive negative 09/03/16 15:11 U Benzodiazepines Scrn Presumptive negative 09/03/16 15:11 Urine Cocaine Screen Presumptive negative 09/03/16 15:11 U Marijuana (THC) Screen Presumptive positive 09/03/16 15:11 Drugs of Abuse Note Disclamer 09/03/16 15:11 Rheumatoid Factor 24 IU/ml (0-13) H 09/08/16 11:48 SAHIL Screen Negative (Negative) 09/07/16 09:20 Proteinase 3 (PR3) Ab <1.0 AI (<1.0) 09/07/16 09:20 Myeloperoxidase Ab <1.0 AI (<1.0) 09/07/16 09:20 Sjogren's Antibody <1.0 AI (<1.0) 09/08/16 15:35 Scl-70 Scleroderma Ab <1.0 AI (<1.0) 09/08/16 15:35 Centromere B Antibody <1.0 AI (<1.0) 09/08/16 12:02 Heparin-induced Plt Ab Negative (Negative) 09/29/16 13:35 UF Heparin High Dose 11 % Release 09/29/16 13:35 SUDHIR UFH Low Dose 0.1 6 % Release 09/29/16 13:35 SUDHIR UFH Low Dose 0.5 8 % Release 09/29/16 13:35 Cardiolipid IgG Ab <14 GPL (<=14) 09/12/16 09:59 Cardiolipid IgA Ab <11 APL (<=11) 09/12/16 09:59 Cardiolipid IgM Ab <12 MPL (<=12) 09/12/16 09:59 Complement C3 148 mg/dL (90-180) 09/07/16 09:20 Complement C4 58 mg/dL (16-47) H 09/07/16 09:20 RPR Nonreactive (Nonreactive) 09/08/16 11:48 Hepatitis A IgM Ab Non-reactive (NonReactive) 09/24/16 14:40 Hep Bs Antigen Non-reactive (Negative) 09/24/16 14:40 Hep B Core IgM Ab Non-reactive (NonReactive) 09/24/16 14:40 Hepatitis C Antibody Non-reactive (NonReactive) 09/24/16 14:40 HIV 1&2 Antibody Rapid Non react (Non React) 09/08/16 11:48 HIV P24 Antigen Non react (Non React) 09/08/16 11:48 Miscellaneous Test Flexitest 1 H 01/09/17 18:45 Blood Type A POSITIVE 02/12/17 10:25 Antibody Screen Negative 02/12/17 10:25 DELORIS Antibody Screen Negative 11/24/16 11:20 Crossmatch See Detail 02/12/17 10:25
[2017-03-02] MEDS: DURAGESIC TD SCH (11:49)
[2017-03-02] MEDS: LOPRESSOR IV SCH ×2 (13:19→14:52)
[2017-03-02] MEDS ORDERED: NACL 0.9% 100 ML IV PRN (19:45)
[2017-03-02] MEDS ORDERED: TPN ADULT IV SCH (20:00)
[2017-03-03] MEDS: LOPRESSOR IV SCH ×5 (03:55→20:00)
[2017-03-03] MEDS: REGLAN IV SCH ×3 (06:23→22:11)
[2017-03-03 06:52] LABS: Calcium 9.2 mg/dL (8.4-10.2)
[2017-03-03] MEDS: DUONEB *Not for PRN Use IH SCH ×3 (08:38→20:17)
--- NOTE | 2017-03-03 10:03 | Progress Note ---
Assessment and Plan Acute Hypoxemic Respiratory Failure (now with exacerbation and back on MVS) Hypertension (unable to receive p.o. meds) Atrial Fibrillation with RVR s/p tracheostomy Acute encephalopathy s/p CVA Oropharyngeal dysphagia Enterococcal bacteremia sepsis syndrome Sacral Decubitus Ulcer (s/p surgical debridement) Anemia Obesity JUANITA now on hemodialysis Enteric Fistula (Discussed case with ID and Nephrology; will pull vas-cath after dialysis with plan to replace approx 72hrs later on monday) - keep on with daily t-piece/PSV trials as tolerated - continue scheduled IV metoprolol with hold parameters - follow 2D ECHO re: ? SBE - stop Amiodarone drip once rate better controlled - continue to hold tube feeds due to continued intolerance; continue reglan at 10mg IV q8h - continue NGT to LIS - remains on amiodarone drip for persistent tachycardia - prn CXR's at this point - appreciate surgery input - continue fentanyl patch for pain issues especially s/p debridement - continue wound care per WCT and RN's (she is s/p surgical debridement) - continue anti-infectives per ID recs (Vancomycin now) - prn CRP & lactate levels if clinically indicated (Follow WBC also) - continue TPN administration (Change to PPN re: vascular access issues) - continue robinul & scopolamine for secretion control - continue to wean FiO2 for sats > 94% - continue bronchodilators and pulmonary toilet - VAP bundle addressed - continue to follow electrolytes and correct as necessary - continue GI & VTE prophylaxis - Continue flu & pneumovax per protocol - ethics consult placed and pending .....she remains critically ill on life sustaining interventions including MVS and at risk for further deterioration including ....32' CCT ....care plan discussed at length during team rounds ...detention prognosis remains guarded and this has intermittently been conveyed to family Subjective Date of service: 03/03/17 Principal diagnosis: Acute resp failure on MVS; S/P Acute CVA; Acute Encephalopathy; JUANITA Interval history: Patient is seen today for: Acute resp failure on MVS; S/P Acute CVA; Acute Encephalopathy; JUANITA Seen and examined at bedside; 24hour events reviewed; nursing and respiratory care staff consulted; no adverse overnight events reported to me; remains on MVS ; AMS is persistent; for dialysis today; will pull vascath thereafter Objective Vital Signs - 12hr 03/02/17 03/02/17 03/02/17 22:15 22:30 22:45 Temperature Pulse Rate 114 H 116 H 116 H Respiratory 20 23 23 Rate Blood Pressure 125/71 127/73 122/71 O2 Sat by Pulse 100 100 100 Oximetry O2 Sat by Pulse Oximetry [ Assessment] O2 Sat by Pulse Oximetry [ Throughout] 03/02/17 03/02/17 03/02/17 23:00 23:15 23:30 Temperature Pulse Rate 122 H 120 H 120 H Respiratory 25 H 21 21 Rate Blood Pressure 136/68 127/77 132/81 O2 Sat by Pulse 100 100 100 Oximetry O2 Sat by Pulse Oximetry [ Assessment] O2 Sat by Pulse Oximetry [ Throughout] 03/02/17 03/03/17 03/03/17 23:45 00:00 00:15 Temperature 99.0 F Pulse Rate 122 H 125 H 124 H Respiratory 25 H 22 16 Rate Blood Pressure 132/83 148/91 134/83 O2 Sat by Pulse 99 100 100 Oximetry O2 Sat by Pulse 99 Oximetry [ Assessment] O2 Sat by Pulse Oximetry [ Throughout] 03/03/17 03/03/17 03/03/17 00:30 00:45 01:00 Temperature Pulse Rate 117 H 112 H 114 H Respiratory 21 22 20 Rate Blood Pressure 107/60 116/58 117/64 O2 Sat by Pulse 98 98 98 Oximetry O2 Sat by Pulse Oximetry [ Assessment] O2 Sat by Pulse Oximetry [ Throughout] 03/03/17 03/03/17 03/03/17 01:15 01:30 01:45 Temperature Pulse Rate 114 H Respiratory 19 Rate Blood Pressure 121/70 118/65 129/76 O2 Sat by Pulse 98 97 99 Oximetry O2 Sat by Pulse Oximetry [ Assessment] O2 Sat by Pulse Oximetry [ Throughout] 03/03/17 03/03/17 03/03/17 02:00 02:15 02:30 Temperature Pulse Rate 112 H Respiratory 21 Rate Blood Pressure 130/74 118/73 118/69 O2 Sat by Pulse 99 97 98 Oximetry O2 Sat by Pulse Oximetry [ Assessment] O2 Sat by Pulse Oximetry [ Throughout] 03/03/17 03/03/17 03/03/17 02:45 03:00 03:15 Temperature Pulse Rate 107 H 111 H 110 H Respiratory 22 23 20 Rate Blood Pressure 112/67 113/67 115/70 O2 Sat by Pulse 99 99 99 Oximetry O2 Sat by Pulse Oximetry [ Assessment] O2 Sat by Pulse Oximetry [ Throughout] 03/03/17 03/03/17 03/03/17 03:30 03:45 03:55 Temperature Pulse Rate 108 H 110 H 111 H Respiratory 21 20 Rate Blood Pressure 117/71 120/71 120/71 O2 Sat by Pulse 100 100 Oximetry O2 Sat by Pulse Oximetry [ Assessment] O2 Sat by Pulse Oximetry [ Throughout] 03/03/17 03/03/17 03/03/17 03:59 04:00 04:15 Temperature 98.5 F Pulse Rate 111 H 101 H 108 H Respiratory 24 18 Rate Blood Pressure 120/71 129/85 168/87 O2 Sat by Pulse 100 100 Oximetry O2 Sat by Pulse Oximetry [ Assessment] O2 Sat by Pulse Oximetry [ Throughout] 03/03/17 03/03/17 03/03/17 04:30 04:45 05:00 Temperature Pulse Rate 114 H 106 H 105 H Respiratory 29 H 23 22 Rate Blood Pressure 172/92 145/79 144/85 O2 Sat by Pulse Oximetry O2 Sat by Pulse Oximetry [ Assessment] O2 Sat by Pulse Oximetry [ Throughout] 03/03/17 03/03/17 03/03/17 05:15 05:30 05:45 Temperature Pulse Rate 105 H 105 H 103 H Respiratory 24 24 21 Rate Blood Pressure 146/85 144/84 132/82 O2 Sat by Pulse Oximetry O2 Sat by Pulse Oximetry [ Assessment] O2 Sat by Pulse Oximetry [ Throughout] 03/03/17 03/03/17 03/03/17 06:00 06:15 06:30 Temperature Pulse Rate 103 H 106 H 103 H Respiratory 21 24 19 Rate Blood Pressure 127/73 136/85 132/80 O2 Sat by Pulse Oximetry O2 Sat by Pulse Oximetry [ Assessment] O2 Sat by Pulse Oximetry [ Throughout] 03/03/17 03/03/17 03/03/17 06:45 07:00 07:15 Temperature Pulse Rate 105 H 104 H 105 H Respiratory 21 22 24 Rate Blood Pressure 130/85 127/85 127/82 O2 Sat by Pulse Oximetry O2 Sat by Pulse Oximetry [ Assessment] O2 Sat by Pulse Oximetry [ Throughout] 03/03/17 03/03/17 03/03/17 07:30 07:45 08:00 Temperature 98.8 F Pulse Rate 103 H 104 H 112 H Respiratory 18 21 18 Rate Blood Pressure 132/85 137/85 134/81 O2 Sat by Pulse Oximetry O2 Sat by Pulse Oximetry [ Assessment] O2 Sat by Pulse Oximetry [ Throughout] 03/03/17 03/03/17 03/03/17 08:15 08:30 08:40 Temperature 98.8 F Pulse Rate 107 H 106 H 101 H Respiratory 20 39 H Rate Blood Pressure 141/80 155/81 141/69 O2 Sat by Pulse 100 Oximetry O2 Sat by Pulse Oximetry [ Assessment] O2 Sat by Pulse 100 Oximetry [ Throughout] 03/03/17 03/03/17 03/03/17 08:45 09:00 09:15 Temperature Pulse Rate 102 H 109 H 109 H Respiratory 33 H 32 H 40 H Rate Blood Pressure 137/72 137/77 130/79 O2 Sat by Pulse 100 100 100 Oximetry O2 Sat by Pulse Oximetry [ Assessment] O2 Sat by Pulse Oximetry [ Throughout] 03/03/17 03/03/17 09:30 09:45 Temperature Pulse Rate 107 H 110 H Respiratory 38 H 36 H Rate Blood Pressure 108/67 102/68 O2 Sat by Pulse 100 100 Oximetry O2 Sat by Pulse Oximetry [ Assessment] O2 Sat by Pulse Oximetry [ Throughout] Constitutional: appears uncomfortable, other (not tracking) Eyes: non-icteric, other (tracheostomy tube in midline of neck) ENT: oropharynx moist, oropharyngeal exudate pre, other (midline tracheostomy tube) Neck: supple, no lymphadenopathy, no JVD, other (no thyromegaly) Effort: mildly labored Ascultation: Bilateral: diminished breath sounds, rhonchi (and referred upper airway sounds) Percussion: Bilateral: not dull Cardiovascular: regular rate and rhythm, other (no rubs / murmurs) Gastrointestinal: hypoactive bowel sounds, soft, non-tender, non-distended, other (RLQ & LUQ stomas with colostomy bags) Integumentary: decubitus ulcer (sacral; stage 4 s/p surgical debridement), other (no rash; no cellulitis; poor turgor) Extremities: no cyanosis, pulses normal, no ischemia or petechiae, edema (1+ bilaterally) Neurologic: pupils equal and round, unable to assess, other (encephalopathic) Psychiatric: other (unable to assess) CBC and BMP: 02/24/17 10:05 03/04/17 06:10 ABG, PT/INR, D-dimer: ABG POC ABG pH 7.436 (7.35-7.45) 01/20/17 12:17 ABG pH 7.450 pH Units (7.350-7.450) 12/05/16 Unknown POC ABG pCO2 35.3 (35-45) 01/20/17 12: ABG pCO2 29.6 mm Hg 12/05/16 Unknown POC ABG pO2 70 (80-105) L 01/20/17 12:17 ABG pO2 75.2 mm Hg (80.0-90.0) L 12/05/16 Unknown POC ABG HCO3 23.8 01/20/17 12: POC ABG Total CO2 25 01/20/17 12:17 POC ABG O2 Sat 94 01/20/17 12: ABG O2 Saturation 96.8 % (95.0-99.0) 12/05/16 Unknown PT/INR, D-dimer PT 15.4 Sec. (12.2-14.9) H 01/13/17 15:50 INR 1.16 (0.87-1.13) H 01/13/17 15:50 Abnormal lab findings: Abnormal Labs 09/03/16 09/03/16 09/03/16 00:03 00:10 00:10 WBC 13.9 H RBC 5.95 H Hgb Hct 44.0 H MCV 74 L MCH 22 L MCHC RDW 17.5 H Plt Count Lymph % (Auto) [place] % (Auto) Lymph # [place] # Baso # Seg Neutrophils % Seg Neuts % (Manual) Lymphocytes % (Manual) 54.0 H Monocytes % (Manual) Eosinophils % (Manual) Basophils % (Manual) Nucleated RBC % Seg Neutrophils # Seg Neutrophils # Man Lymphocytes # (Manual) 7.5 H Monocytes # (Manual) Eosinophils # (Manual) Basophils # (Manual) PT INR Fibrinogen dRVVT Confirm Interp Factor V Activity POC ABG pH POC ABG pCO2 POC ABG pO2 ABG pO2 ABG HCO3 ABG Base Excess ABG Hemoglobin Oxyhemoglobin Sodium Potassium 2.8 L* Chloride Carbon Dioxide 21 L BUN Creatinine 1.7 H Glucose 159 H POC Glucose 177 H Lactic Acid Calcium Ionized Calcium Phosphorus Magnesium Direct Bilirubin AST ALT Alkaline Phosphatase Lactate Dehydrogenase Troponin T C-Reactive Protein Total Protein Albumin Prealbumin Triglycerides Cholesterol LDL Cholesterol Direct HDL Cholesterol 25-OH Vitamin D Total PTH Intact Urine pH Urine WBC (Auto) Urine Creatinine Urine Total Protein Fluid Total Protein Vancomycin Trough Rheumatoid Factor Complement C4 Miscellaneous Test Crossmatch 09/03/16 09/03/16 09/03/16 12:12 15:07 16:20 WBC RBC Hgb Hct MCV MCH MCHC RDW Plt Count Lymph % (Auto) [place] % (Auto) Lymph # [place] # Baso # Seg Neutrophils % Seg Neuts % (Manual) Lymphocytes % (Manual) Monocytes % (Manual) Eosinophils % (Manual) Basophils % (Manual) Nucleated RBC % Seg Neutrophils # Seg Neutrophils # Man Lymphocytes # (Manual) Monocytes # (Manual) Eosinophils # (Manual) Basophils # (Manual) PT INR Fibrinogen dRVVT Confirm Interp Factor V Activity POC ABG pH 7.452 H POC ABG pCO2 POC ABG pO2 ABG pO2 ABG HCO3 ABG Base Excess ABG Hemoglobin Oxyhemoglobin Sodium Potassium Chloride Carbon Dioxide BUN Creatinine Glucose POC Glucose 178 H Lactic Acid Calcium Ionized Calcium Phosphorus 2.20 L Magnesium 1.60 L Direct Bilirubin AST ALT Alkaline Phosphatase Lactate Dehydrogenase Troponin T C-Reactive Protein Total Protein Albumin Prealbumin Triglycerides Cholesterol LDL Cholesterol Direct HDL Cholesterol 25-OH Vitamin D Total PTH Intact Urine pH Urine WBC (Auto) Urine Creatinine Urine Total Protein Fluid Total Protein Vancomycin Trough Rheumatoid Factor Complement C4 Miscellaneous Test Crossmatch 09/03/16 09/03/16 09/03/16 17:57 17:58 23:50 WBC RBC Hgb Hct MCV MCH MCHC RDW Plt Count Lymph % (Auto) [place] % (Auto) Lymph # [place] # Baso # Seg Neutrophils % Seg Neuts % (Manual) Lymphocytes % (Manual) Monocytes % (Manual) Eosinophils % (Manual) Basophils % (Manual) Nucleated RBC % Seg Neutrophils # Seg Neutrophils # Man Lymphocytes # (Manual) Monocytes # (Manual) Eosinophils # (Manual) Basophils # (Manual) PT INR Fibrinogen dRVVT Confirm Interp Factor V Activity POC ABG pH POC ABG pCO2 POC ABG pO2 ABG pO2 ABG HCO3 ABG Base Excess ABG Hemoglobin Oxyhemoglobin Sodium Potassium Chloride Carbon Dioxide BUN Creatinine Glucose POC Glucose 162 H 145 H Lactic Acid Calcium Ionized Calcium Phosphorus 2.30 L Magnesium Direct Bilirubin AST ALT Alkaline Phosphatase Lactate Dehydrogenase Troponin T C-Reactive Protein Total Protein Albumin Prealbumin Triglycerides Cholesterol LDL Cholesterol Direct HDL Cholesterol 25-OH Vitamin D Total PTH Intact Urine pH Urine WBC (Auto) Urine Creatinine Urine Total Protein Fluid Total Protein Vancomycin Trough Rheumatoid Factor Complement C4 Miscellaneous Test Crossmatch 09/04/16 09/04/16 09/04/16 03:31 03:31 05:42 WBC RBC Hgb 9.7 L D Hct MCV 72 L MCH 23 L MCHC RDW 17.5 H Plt Count Lymph % (Auto) 11.1 L [place] % (Auto) Lymph # [place] # Baso # Seg Neutrophils % 84.3 H Seg Neuts % (Manual) Lymphocytes % (Manual) Monocytes % (Manual) Eosinophils % (Manual) Basophils % (Manual) Nucleated RBC % Seg Neutrophils # 8.9 H Seg Neutrophils # Man Lymphocytes # (Manual) Monocytes # (Manual) Eosinophils # (Manual) Basophils # (Manual) PT INR Fibrinogen dRVVT Confirm Interp Factor V Activity POC ABG pH POC ABG pCO2 POC ABG pO2 ABG pO2 ABG HCO3 ABG Base Excess ABG Hemoglobin Oxyhemoglobin Sodium 135 L Potassium 2.9 L* Chloride 97.2 L Carbon Dioxide 19 L BUN Creatinine 1.7 H Glucose 170 H POC Glucose 152 H Lactic Acid Calcium Ionized Calcium Phosphorus Magnesium Direct Bilirubin AST ALT Alkaline Phosphatase Lactate Dehydrogenase Troponin T C-Reactive Protein Total Protein Albumin Prealbumin Triglycerides 160 H Cholesterol LDL Cholesterol Direct HDL Cholesterol 31 L 25-OH Vitamin D Total PTH Intact Urine pH Urine WBC (Auto) Urine Creatinine Urine Total Protein Fluid Total Protein Vancomycin Trough Rheumatoid Factor Complement C4 Miscellaneous Test Crossmatch 09/04/16 09/04/16 09/04/16 11:34 17:46 23:29 WBC RBC Hgb Hct MCV MCH MCHC RDW Plt Count Lymph % (Auto) [place] % (Auto) Lymph # [place] # Baso # Seg Neutrophils % Seg Neuts % (Manual) Lymphocytes % (Manual) Monocytes % (Manual) Eosinophils % (Manual) Basophils % (Manual) Nucleated RBC % Seg Neutrophils # Seg Neutrophils # Man Lymphocytes # (Manual) Monocytes # (Manual) Eosinophils # (Manual) Basophils # (Manual) PT INR Fibrinogen dRVVT Confirm Interp Factor V Activity POC ABG pH POC ABG pCO2 POC ABG pO2 ABG pO2 ABG HCO3 ABG Base Excess ABG Hemoglobin Oxyhemoglobin Sodium Potassium Chloride Carbon Dioxide BUN Creatinine Glucose POC Glucose 165 H 210 H 139 H Lactic Acid Calcium Ionized Calcium Phosphorus Magnesium Direct Bilirubin AST ALT Alkaline Phosphatase Lactate Dehydrogenase Troponin T C-Reactive Protein Total Protein Albumin Prealbumin Triglycerides Cholesterol LDL Cholesterol Direct HDL Cholesterol 25-OH Vitamin D Total PTH Intact Urine pH Urine WBC (Auto) Urine Creatinine Urine Total Protein Fluid Total Protein Vancomycin Trough Rheumatoid Factor Complement C4 Miscellaneous Test Crossmatch 09/05/16 09/05/16 09/05/16 04:05 04:05 05:38 WBC RBC Hgb Hct MCV 76 L D MCH 23 L MCHC RDW 17.8 H Plt Count Lymph % (Auto) [place] % (Auto) Lymph # [place] # Baso # Seg Neutrophils % Seg Neuts % (Manual) Lymphocytes % (Manual) Monocytes % (Manual) Eosinophils % (Manual) Basophils % (Manual) Nucleated RBC % Seg Neutrophils # Seg Neutrophils # Man Lymphocytes # (Manual) Monocytes # (Manual) Eosinophils # (Manual) Basophils # (Manual) PT INR Fibrinogen dRVVT Confirm Interp Factor V Activity POC ABG pH POC ABG pCO2 POC ABG pO2 ABG pO2 ABG HCO3 ABG Base Excess ABG Hemoglobin Oxyhemoglobin Sodium 134 L Potassium Chloride Carbon Dioxide 18 L BUN Creatinine 1.8 H Glucose 192 H POC Glucose 175 H Lactic Acid Calcium Ionized Calcium Phosphorus Magnesium Direct Bilirubin AST ALT Alkaline Phosphatase Lactate Dehydrogenase Troponin T C-Reactive Protein Total Protein Albumin Prealbumin Triglycerides Cholesterol LDL Cholesterol Direct HDL Cholesterol 25-OH Vitamin D Total PTH Intact Urine pH Urine WBC (Auto) Urine Creatinine Urine Total Protein Fluid Total Protein Vancomycin Trough Rheumatoid Factor Complement C4 Miscellaneous Test Crossmatch 09/05/16 09/05/16 09/05/16 11:38 17:48 23:22 WBC RBC Hgb Hct MCV MCH MCHC RDW Plt Count Lymph % (Auto) [place] % (Auto) Lymph # [place] # Baso # Seg Neutrophils % Seg Neuts % (Manual) Lymphocytes % (Manual) Monocytes % (Manual) Eosinophils % (Manual) Basophils % (Manual) Nucleated RBC % Seg Neutrophils # Seg Neutrophils # Man Lymphocytes # (Manual) Monocytes # (Manual) Eosinophils # (Manual) Basophils # (Manual) PT INR Fibrinogen dRVVT Confirm Interp Factor V Activity POC ABG pH POC ABG pCO2 POC ABG pO2 ABG pO2 ABG HCO3 ABG Base Excess ABG Hemoglobin Oxyhemoglobin Sodium Potassium Chloride Carbon Dioxide BUN Creatinine Glucose POC Glucose 164 H 186 H 195 H Lactic Acid Calcium Ionized Calcium Phosphorus Magnesium Direct Bilirubin AST ALT Alkaline Phosphatase Lactate Dehydrogenase Troponin T C-Reactive Protein Total Protein Albumin Prealbumin Triglycerides Cholesterol LDL Cholesterol Direct HDL Cholesterol 25-OH Vitamin D Total PTH Intact Urine pH Urine WBC (Auto) Urine Creatinine Urine Total Protein Fluid Total Protein Vancomycin Trough Rheumatoid Factor Complement C4 Miscellaneous Test Crossmatch 09/06/16 09/06/16 09/06/16 04:12 05:59 07:32 WBC RBC Hgb Hct MCV MCH MCHC RDW Plt Count Lymph % (Auto) [place] % (Auto) Lymph # [place] # Baso # Seg Neutrophils % Seg Neuts % (Manual) Lymphocytes % (Manual) Monocytes % (Manual) Eosinophils % (Manual) Basophils % (Manual) Nucleated RBC % Seg Neutrophils # Seg Neutrophils # Man Lymphocytes # (Manual) Monocytes # (Manual) Eosinophils # (Manual) Basophils # (Manual) PT INR Fibrinogen dRVVT Confirm Interp Factor V Activity POC ABG pH 7.514 H POC ABG pCO2 29.1 L POC ABG pO2 72 L ABG pO2 ABG HCO3 ABG Base Excess ABG Hemoglobin Oxyhemoglobin Sodium 133 L Potassium 3.4 L Chloride 94.9 L Carbon Dioxide 19 L BUN 30 H Creatinine 2.1 H Glucose 139 H POC Glucose 146 H Lactic Acid Calcium Ionized Calcium Phosphorus Magnesium Direct Bilirubin AST ALT Alkaline Phosphatase Lactate Dehydrogenase Troponin T C-Reactive Protein Total Protein Albumin Prealbumin Triglycerides Cholesterol LDL Cholesterol Direct HDL Cholesterol 25-OH Vitamin D Total PTH Intact Urine pH Urine WBC (Auto) Urine Creatinine Urine Total Protein Fluid Total Protein Vancomycin Trough Rheumatoid Factor Complement C4 Miscellaneous Test Crossmatch 09/06/16 09/06/16 09/06/16 11:57 17:58 19:02 WBC RBC Hgb Hct MCV MCH MCHC RDW Plt Count Lymph % (Auto) [place] % (Auto) Lymph # [place] # Baso # Seg Neutrophils % Seg Neuts % (Manual) Lymphocytes % (Manual) Monocytes % (Manual) Eosinophils % (Manual) Basophils % (Manual) Nucleated RBC % Seg Neutrophils # Seg Neutrophils # Man Lymphocytes # (Manual) Monocytes # (Manual) Eosinophils # (Manual) Basophils # (Manual) PT INR Fibrinogen dRVVT Confirm Interp Factor V Activity POC ABG pH 7.465 H POC ABG pCO2 32.0 L POC ABG pO2 ABG pO2 ABG HCO3 ABG Base Excess ABG Hemoglobin Oxyhemoglobin Sodium Potassium Chloride Carbon Dioxide BUN Creatinine Glucose POC Glucose 165 H 160 H Lactic Acid Calcium Ionized Calcium Phosphorus Magnesium Direct Bilirubin AST ALT Alkaline Phosphatase Lactate Dehydrogenase Troponin T C-Reactive Protein Total Protein Albumin Prealbumin Triglycerides Cholesterol LDL Cholesterol Direct HDL Cholesterol 25-OH Vitamin D Total PTH Intact Urine pH Urine WBC (Auto) Urine Creatinine Urine Total Protein Fluid Total Protein Vancomycin Trough Rheumatoid Factor Complement C4 Miscellaneous Test Crossmatch 09/06/16 09/07/16 09/07/16 23:45 02:47 02:47 WBC RBC Hgb Hct MCV MCH MCHC RDW Plt Count Lymph % (Auto) [place] % (Auto) Lymph # [place] # Baso # Seg Neutrophils % Seg Neuts % (Manual) Lymphocytes % (Manual) Monocytes % (Manual) Eosinophils % (Manual) Basophils % (Manual) Nucleated RBC % Seg Neutrophils # Seg Neutrophils # Man Lymphocytes # (Manual) Monocytes # (Manual) Eosinophils # (Manual) Basophils # (Manual) PT INR Fibrinogen dRVVT Confirm Interp Factor V Activity POC ABG pH POC ABG pCO2 POC ABG pO2 ABG pO2 ABG HCO3 ABG Base Excess ABG Hemoglobin Oxyhemoglobin Sodium Potassium Chloride Carbon Dioxide BUN Creatinine Glucose POC Glucose 204 H Lactic Acid Calcium Ionized Calcium Phosphorus Magnesium Direct Bilirubin AST ALT Alkaline Phosphatase Lactate Dehydrogenase Troponin T C-Reactive Protein Total Protein Albumin Prealbumin Triglycerides Cholesterol LDL Cholesterol Direct HDL Cholesterol 25-OH Vitamin D Total PTH Intact Urine pH Urine WBC (Auto) 68.0 H Urine Creatinine 106.1 H Urine Total Protein Fluid Total Protein Vancomycin Trough Rheumatoid Factor Complement C4 Miscellaneous Test Crossmatch 09/07/16 09/07/16 09/07/16 04:50 06:19 06:39 WBC RBC Hgb Hct MCV MCH MCHC RDW Plt Count Lymph % (Auto) [place] % (Auto) Lymph # [place] # Baso # Seg Neutrophils % Seg Neuts % (Manual) Lymphocytes % (Manual) Monocytes % (Manual) Eosinophils % (Manual) Basophils % (Manual) Nucleated RBC % Seg Neutrophils # Seg Neutrophils # Man Lymphocytes # (Manual) Monocytes # (Manual) Eosinophils # (Manual) Basophils # (Manual) PT INR Fibrinogen dRVVT Confirm Interp Factor V Activity POC ABG pH 7.457 H POC ABG pCO2 32.1 L POC ABG pO2 76 L ABG pO2 ABG HCO3 ABG Base Excess ABG Hemoglobin Oxyhemoglobin Sodium 132 L Potassium Chloride 94.7 L Carbon Dioxide BUN 53 H Creatinine 2.9 H Glucose 151 H POC Glucose 149 H Lactic Acid Calcium Ionized Calcium Phosphorus Magnesium Direct Bilirubin AST ALT Alkaline Phosphatase Lactate Dehydrogenase Troponin T C-Reactive Protein Total Protein Albumin Prealbumin Triglycerides Cholesterol LDL Cholesterol Direct HDL Cholesterol 25-OH Vitamin D Total PTH Intact Urine pH Urine WBC (Auto) Urine Creatinine Urine Total Protein Fluid Total Protein Vancomycin Trough Rheumatoid Factor Complement C4 Miscellaneous Test Crossmatch 09/07/16 09/07/16 09/07/16 09:20 11:43 11:43 WBC 19.4 H RBC Hgb 8.3 L Hct 26.4 L D MCV 72 L D MCH 22 L MCHC RDW 17.9 H Plt Count Lymph % (Auto) 8.5 L [place] % (Auto) Lymph # [place] # 1.0 H Baso # Seg Neutrophils % 85.8 H Seg Neuts % (Manual) Lymphocytes % (Manual) Monocytes % (Manual) Eosinophils % (Manual) Basophils % (Manual) Nucleated RBC % Seg Neutrophils # 16.6 H Seg Neutrophils # Man Lymphocytes # (Manual) Monocytes # (Manual) Eosinophils # (Manual) Basophils # (Manual) PT INR Fibrinogen dRVVT Confirm Interp Factor V Activity POC ABG pH POC ABG pCO2 POC ABG pO2 ABG pO2 ABG HCO3 ABG Base Excess ABG Hemoglobin Oxyhemoglobin Sodium 134 L Potassium Chloride 97.2 L Carbon Dioxide 20 L BUN 58 H Creatinine 2.9 H Glucose 147 H POC Glucose Lactic Acid Calcium Ionized Calcium Phosphorus 2.40 L Magnesium 2.40 H Direct Bilirubin AST ALT Alkaline Phosphatase Lactate Dehydrogenase Troponin T C-Reactive Protein Total Protein 5.8 L Albumin 2.2 L Prealbumin Triglycerides Cholesterol LDL Cholesterol Direct HDL Cholesterol 25-OH Vitamin D Total PTH Intact Urine pH Urine WBC (Auto) Urine Creatinine Urine Total Protein Fluid Total Protein Vancomycin Trough Rheumatoid Factor Complement C4 58 H Miscellaneous Test Crossmatch 09/07/16 09/07/16 09/07/16 11:50 16:00 17:31 WBC RBC Hgb Hct MCV MCH MCHC RDW Plt Count Lymph % (Auto) [place] % (Auto) Lymph # [place] # Baso # Seg Neutrophils % Seg Neuts % (Manual) Lymphocytes % (Manual) Monocytes % (Manual) Eosinophils % (Manual) Basophils % (Manual) Nucleated RBC % Seg Neutrophils # Seg Neutrophils # Man Lymphocytes # (Manual) Monocytes # (Manual) Eosinophils # (Manual) Basophils # (Manual) PT INR Fibrinogen dRVVT Confirm Interp Factor V Activity POC ABG pH POC ABG pCO2 POC ABG pO2 158 H ABG pO2 ABG HCO3 ABG Base Excess ABG Hemoglobin Oxyhemoglobin Sodium Potassium Chloride Carbon Dioxide BUN Creatinine Glucose POC Glucose 175 H Lactic Acid Calcium Ionized Calcium Phosphorus Magnesium Direct Bilirubin AST ALT Alkaline Phosphatase Lactate Dehydrogenase Troponin T C-Reactive Protein Total Protein Albumin Prealbumin Triglycerides Cholesterol LDL Cholesterol Direct HDL Cholesterol 25-OH Vitamin D Total PTH Intact Urine pH Urine WBC (Auto) Urine Creatinine 66.3 H Urine Total Protein Fluid Total Protein Vancomycin Trough Rheumatoid Factor Complement C4 Miscellaneous Test Crossmatch 09/07/16 09/08/16 09/08/16 23:50 05:46 06:18 WBC 17.8 H RBC 3.58 L Hgb 8.1 L Hct 25.5 L MCV 71 L MCH 23 L MCHC RDW 18.4 H Plt Count Lymph % (Auto) [place] % (Auto) Lymph # [place] # Baso # Seg Neutrophils % Seg Neuts % (Manual) 92.0 H Lymphocytes % (Manual) 6.0 L Monocytes % (Manual) Eosinophils % (Manual) Basophils % (Manual) Nucleated RBC % Seg Neutrophils # Seg Neutrophils # Man 16.4 H Lymphocytes # (Manual) 1.1 L Monocytes # (Manual) Eosinophils # (Manual) Basophils # (Manual) PT INR Fibrinogen dRVVT Confirm Interp Factor V Activity POC ABG pH POC ABG pCO2 34.3 L POC ABG pO2 71 L ABG pO2 ABG HCO3 ABG Base Excess ABG Hemoglobin Oxyhemoglobin Sodium Potassium Chloride Carbon Dioxide BUN Creatinine Glucose POC Glucose 216 H Lactic Acid Calcium Ionized Calcium Phosphorus Magnesium Direct Bilirubin AST ALT Alkaline Phosphatase Lactate Dehydrogenase Troponin T C-Reactive Protein Total Protein Albumin Prealbumin Triglycerides Cholesterol LDL Cholesterol Direct HDL Cholesterol 25-OH Vitamin D Total PTH Intact Urine pH Urine WBC (Auto) Urine Creatinine Urine Total Protein Fluid Total Protein Vancomycin Trough Rheumatoid Factor Complement C4 Miscellaneous Test Crossmatch 09/08/16 09/08/16 09/08/16 06:18 06:51 10:55 WBC RBC Hgb Hct MCV MCH MCHC RDW Plt Count Lymph % (Auto) [place] % (Auto) Lymph # [place] # Baso # Seg Neutrophils % Seg Neuts % (Manual) Lymphocytes % (Manual) Monocytes % (Manual) Eosinophils % (Manual) Basophils % (Manual) Nucleated RBC % Seg Neutrophils # Seg Neutrophils # Man Lymphocytes # (Manual) Monocytes # (Manual) Eosinophils # (Manual) Basophils # (Manual) PT INR Fibrinogen dRVVT Confirm Interp Factor V Activity POC ABG pH POC ABG pCO2 POC ABG pO2 ABG pO2 ABG HCO3 ABG Base Excess ABG Hemoglobin Oxyhemoglobin Sodium 133 L Potassium Chloride 96.9 L Carbon Dioxide 20 L BUN 63 H Creatinine 2.7 H Glucose 195 H POC Glucose 204 H 169 H Lactic Acid Calcium Ionized Calcium Phosphorus Magnesium Direct Bilirubin AST ALT Alkaline Phosphatase Lactate Dehydrogenase Troponin T C-Reactive Protein Total Protein Albumin Prealbumin Triglycerides Cholesterol LDL Cholesterol Direct HDL Cholesterol 25-OH Vitamin D Total PTH Intact Urine pH Urine WBC (Auto) Urine Creatinine Urine Total Protein Fluid Total Protein Vancomycin Trough Rheumatoid Factor Complement C4 Miscellaneous Test Crossmatch 09/08/16 09/08/16 09/08/16 11:48 11:48 11:48 WBC RBC Hgb Hct MCV MCH MCHC RDW Plt Count Lymph % (Auto) [place] % (Auto) Lymph # [place] # Baso # Seg Neutrophils % Seg Neuts % (Manual) Lymphocytes % (Manual) Monocytes % (Manual) Eosinophils % (Manual) Basophils % (Manual) Nucleated RBC % Seg Neutrophils # Seg Neutrophils # Man Lymphocytes # (Manual) Monocytes # (Manual) Eosinophils # (Manual) Basophils # (Manual) PT INR Fibrinogen 750 H dRVVT Confirm Interp Factor V Activity POC ABG pH POC ABG pCO2 POC ABG pO2 ABG pO2 ABG HCO3 ABG Base Excess ABG Hemoglobin Oxyhemoglobin Sodium Potassium Chloride Carbon Dioxide BUN Creatinine Glucose POC Glucose Lactic Acid Calcium Ionized Calcium Phosphorus Magnesium Direct Bilirubin AST ALT Alkaline Phosphatase Lactate Dehydrogenase Troponin T C-Reactive Protein 15.70 H Total Protein Albumin Prealbumin Triglycerides Cholesterol LDL Cholesterol Direct HDL Cholesterol 25-OH Vitamin D Total PTH Intact Urine pH Urine WBC (Auto) Urine Creatinine Urine Total Protein Fluid Total Protein Vancomycin Trough Rheumatoid Factor 24 H Complement C4 Miscellaneous Test Crossmatch 09/08/16 09/08/16 09/09/16 15:35 18:25 00:24 WBC RBC Hgb Hct MCV MCH MCHC RDW Plt Count Lymph % (Auto) [place] % (Auto) Lymph # [place] # Baso # Seg Neutrophils % Seg Neuts % (Manual) Lymphocytes % (Manual) Monocytes % (Manual) Eosinophils % (Manual) Basophils % (Manual) Nucleated RBC % Seg Neutrophils # Seg Neutrophils # Man Lymphocytes # (Manual) Monocytes # (Manual) Eosinophils # (Manual) Basophils # (Manual) PT INR Fibrinogen dRVVT Confirm Interp Factor V Activity 182 H POC ABG pH POC ABG pCO2 POC ABG pO2 ABG pO2 ABG HCO3 ABG Base Excess ABG Hemoglobin Oxyhemoglobin Sodium Potassium Chloride Carbon Dioxide BUN Creatinine Glucose POC Glucose 184 H 216 H Lactic Acid Calcium Ionized Calcium Phosphorus Magnesium Direct Bilirubin AST ALT Alkaline Phosphatase Lactate Dehydrogenase Troponin T C-Reactive Protein Total Protein Albumin Prealbumin Triglycerides Cholesterol LDL Cholesterol Direct HDL Cholesterol 25-OH Vitamin D Total PTH Intact Urine pH Urine WBC (Auto) Urine Creatinine Urine Total Protein Fluid Total Protein Vancomycin Trough Rheumatoid Factor Complement C4 Miscellaneous Test Crossmatch 09/09/16 09/09/16 09/09/16 03:00 03:00 04:04 WBC 27.9 H RBC Hgb 8.7 L Hct 28.1 L MCV 72 L MCH 22 L MCHC RDW 18.4 H Plt Count 485 H Lymph % (Auto) [place] % (Auto) Lymph # [place] # Baso # Seg Neutrophils % Seg Neuts % (Manual) 77.0 H Lymphocytes % (Manual) 9.0 L Monocytes % (Manual) Eosinophils % (Manual) Basophils % (Manual) Nucleated RBC % Seg Neutrophils # Seg Neutrophils # Man 21.5 H Lymphocytes # (Manual) Monocytes # (Manual) 2.0 H Eosinophils # (Manual) Basophils # (Manual) PT INR Fibrinogen dRVVT Confirm Interp Factor V Activity POC ABG pH POC ABG pCO2 POC ABG pO2 121 H ABG pO2 ABG HCO3 ABG Base Excess ABG Hemoglobin Oxyhemoglobin Sodium 135 L Potassium Chloride 96.3 L Carbon Dioxide 21 L BUN 83 H Creatinine 3.0 H Glucose 135 H POC Glucose Lactic Acid Calcium Ionized Calcium Phosphorus Magnesium Direct Bilirubin AST ALT Alkaline Phosphatase Lactate Dehydrogenase Troponin T C-Reactive Protein Total Protein Albumin Prealbumin Triglycerides Cholesterol LDL Cholesterol Direct HDL Cholesterol 25-OH Vitamin D Total PTH Intact Urine pH Urine WBC (Auto) Urine Creatinine Urine Total Protein Fluid Total Protein Vancomycin Trough Rheumatoid Factor Complement C4 Miscellaneous Test Crossmatch 09/09/16 09/09/16 09/09/16 05:41 11:55 14:13 WBC RBC Hgb Hct MCV MCH MCHC RDW Plt Count Lymph % (Auto) [place] % (Auto) Lymph # [place] # Baso # Seg Neutrophils % Seg Neuts % (Manual) Lymphocytes % (Manual) Monocytes % (Manual) Eosinophils % (Manual) Basophils % (Manual) Nucleated RBC % Seg Neutrophils # Seg Neutrophils # Man Lymphocytes # (Manual) Monocytes # (Manual) Eosinophils # (Manual) Basophils # (Manual) PT INR Fibrinogen dRVVT Confirm Interp Factor V Activity POC ABG pH POC ABG pCO2 POC ABG pO2 ABG pO2 ABG HCO3 ABG Base Excess ABG Hemoglobin Oxyhemoglobin Sodium Potassium Chloride Carbon Dioxide BUN Creatinine Glucose POC Glucose 155 H 186 H Lactic Acid Calcium Ionized Calcium Phosphorus Magnesium Direct Bilirubin AST ALT Alkaline Phosphatase Lactate Dehydrogenase Troponin T C-Reactive Protein Total Protein Albumin Prealbumin Triglycerides Cholesterol LDL Cholesterol Direct HDL Cholesterol 25-OH Vitamin D Total PTH Intact Urine pH Urine WBC (Auto) 25.0 H Urine Creatinine Urine Total Protein Fluid Total Protein Vancomycin Trough Rheumatoid Factor Complement C4 Miscellaneous Test Crossmatch 09/09/16 09/09/16 09/10/16 17:33 23:13 05:09 WBC RBC Hgb Hct MCV MCH MCHC RDW Plt Count Lymph % (Auto) [place] % (Auto) Lymph # [place] # Baso # Seg Neutrophils % Seg Neuts % (Manual) Lymphocytes % (Manual) Monocytes % (Manual) Eosinophils % (Manual) Basophils % (Manual) Nucleated RBC % Seg Neutrophils # Seg Neutrophils # Man Lymphocytes # (Manual) Monocytes # (Manual) Eosinophils # (Manual) Basophils # (Manual) PT INR Fibrinogen dRVVT Confirm Interp Factor V Activity POC ABG pH POC ABG pCO2 POC ABG pO2 74 L ABG pO2 ABG HCO3 ABG Base Excess ABG Hemoglobin Oxyhemoglobin Sodium Potassium Chloride Carbon Dioxide BUN Creatinine Glucose POC Glucose 211 H 215 H Lactic Acid Calcium Ionized Calcium Phosphorus Magnesium Direct Bilirubin AST ALT Alkaline Phosphatase Lactate Dehydrogenase Troponin T C-Reactive Protein Total Protein Albumin Prealbumin Triglycerides Cholesterol LDL Cholesterol Direct HDL Cholesterol 25-OH Vitamin D Total PTH Intact Urine pH Urine WBC (Auto) Urine Creatinine Urine Total Protein Fluid Total Protein Vancomycin Trough Rheumatoid Factor Complement C4 Miscellaneous Test Crossmatch 09/10/16 09/10/16 09/10/16 05:17 05:17 11:31 WBC 15.8 H RBC 3.25 L Hgb 7.3 L Hct 22.9 L MCV 71 L MCH 23 L MCHC RDW 18.4 H Plt Count Lymph % (Auto) [place] % (Auto) Lymph # [place] # Baso # Seg Neutrophils % Seg Neuts % (Manual) 91.0 H Lymphocytes % (Manual) 4.0 L Monocytes % (Manual) Eosinophils % (Manual) Basophils % (Manual) Nucleated RBC % Seg Neutrophils # Seg Neutrophils # Man 14.4 H Lymphocytes # (Manual) 0.6 L Monocytes # (Manual) Eosinophils # (Manual) Basophils # (Manual) PT INR Fibrinogen dRVVT Confirm Interp Factor V Activity POC ABG pH POC ABG pCO2 POC ABG pO2 ABG pO2 ABG HCO3 ABG Base Excess ABG Hemoglobin Oxyhemoglobin Sodium Potassium Chloride Carbon Dioxide 21 L BUN 93 H Creatinine 2.9 H Glucose 146 H POC Glucose 188 H Lactic Acid Calcium 8.1 L Ionized Calcium Phosphorus Magnesium Direct Bilirubin AST ALT Alkaline Phosphatase Lactate Dehydrogenase Troponin T C-Reactive Protein Total Protein Albumin Prealbumin Triglycerides Cholesterol LDL Cholesterol Direct HDL Cholesterol 25-OH Vitamin D Total PTH Intact Urine pH Urine WBC (Auto) Urine Creatinine Urine Total Protein Fluid Total Protein Vancomycin Trough Rheumatoid Factor Complement C4 Miscellaneous Test Crossmatch 09/10/16 09/10/16 09/10/16 13:17 17:20 23:32 WBC RBC Hgb Hct MCV MCH MCHC RDW Plt Count Lymph % (Auto) [place] % (Auto) Lymph # [place] # Baso # Seg Neutrophils % Seg Neuts % (Manual) Lymphocytes % (Manual) Monocytes % (Manual) Eosinophils % (Manual) Basophils % (Manual) Nucleated RBC % Seg Neutrophils # Seg Neutrophils # Man Lymphocytes # (Manual) Monocytes # (Manual) Eosinophils # (Manual) Basophils # (Manual) PT INR Fibrinogen dRVVT Confirm Interp Factor V Activity POC ABG pH POC ABG pCO2 POC ABG pO2 ABG pO2 ABG HCO3 ABG Base Excess ABG Hemoglobin Oxyhemoglobin Sodium Potassium Chloride Carbon Dioxide BUN Creatinine Glucose POC Glucose 199 H 186 H Lactic Acid Calcium Ionized Calcium Phosphorus Magnesium Direct Bilirubin AST ALT Alkaline Phosphatase Lactate Dehydrogenase Troponin T C-Reactive Protein Total Protein Albumin Prealbumin Triglycerides Cholesterol LDL Cholesterol Direct HDL Cholesterol 25-OH Vitamin D Total PTH Intact Urine pH Urine WBC (Auto) Urine Creatinine Urine Total Protein Fluid Total Protein Vancomycin Trough Rheumatoid Factor Complement C4 Miscellaneous Test Crossmatch See Detail 09/11/16 09/11/16 09/11/16 05:10 05:10 05:17 WBC 28.4 H RBC Hgb 9.2 L Hct 29.3 L D MCV 73 L MCH 23 L MCHC RDW 18.9 H Plt Count 452 H Lymph % (Auto) [place] % (Auto) Lymph # [place] # Baso # Seg Neutrophils % Seg Neuts % (Manual) 89.5 H Lymphocytes % (Manual) 2.0 L Monocytes % (Manual) Eosinophils % (Manual) Basophils % (Manual) Nucleated RBC % Seg Neutrophils # Seg Neutrophils # Man 25.4 H Lymphocytes # (Manual) 0.6 L Monocytes # (Manual) 1.3 H Eosinophils # (Manual) Basophils # (Manual) PT INR Fibrinogen dRVVT Confirm Interp Factor V Activity POC ABG pH POC ABG pCO2 POC ABG pO2 ABG pO2 ABG HCO3 ABG Base Excess ABG Hemoglobin Oxyhemoglobin Sodium 136 L Potassium Chloride Carbon Dioxide 18 L BUN 107 H Creatinine 2.6 H Glucose 187 H POC Glucose 230 H Lactic Acid Calcium 8.3 L Ionized Calcium Phosphorus Magnesium Direct Bilirubin AST ALT Alkaline Phosphatase Lactate Dehydrogenase Troponin T C-Reactive Protein Total Protein Albumin Prealbumin Triglycerides Cholesterol LDL Cholesterol Direct HDL Cholesterol 25-OH Vitamin D Total PTH Intact Urine pH Urine WBC (Auto) Urine Creatinine Urine Total Protein Fluid Total Protein Vancomycin Trough Rheumatoid Factor Complement C4 Miscellaneous Test Crossmatch 09/11/16 09/11/16 09/11/16 05:55 12:02 17:32 WBC RBC Hgb Hct MCV MCH MCHC RDW Plt Count Lymph % (Auto) [place] % (Auto) Lymph # [place] # Baso # Seg Neutrophils % Seg Neuts % (Manual) Lymphocytes % (Manual) Monocytes % (Manual) Eosinophils % (Manual) Basophils % (Manual) Nucleated RBC % Seg Neutrophils # Seg Neutrophils # Man Lymphocytes # (Manual) Monocytes # (Manual) Eosinophils # (Manual) Basophils # (Manual) PT INR Fibrinogen dRVVT Confirm Interp Factor V Activity POC ABG pH POC ABG pCO2 33.8 L POC ABG pO2 ABG pO2 ABG HCO3 ABG Base Excess ABG Hemoglobin Oxyhemoglobin Sodium Potassium Chloride Carbon Dioxide BUN Creatinine Glucose POC Glucose 191 H 239 H Lactic Acid Calcium Ionized Calcium Phosphorus Magnesium Direct Bilirubin AST ALT Alkaline Phosphatase Lactate Dehydrogenase Troponin T C-Reactive Protein Total Protein Albumin Prealbumin Triglycerides Cholesterol LDL Cholesterol Direct HDL Cholesterol 25-OH Vitamin D Total PTH Intact Urine pH Urine WBC (Auto) Urine Creatinine Urine Total Protein Fluid Total Protein Vancomycin Trough Rheumatoid Factor Complement C4 Miscellaneous Test Crossmatch 09/11/16 09/12/16 09/12/16 23:52 05:09 05:32 WBC RBC Hgb Hct MCV MCH MCHC RDW Plt Count Lymph % (Auto) [place] % (Auto) Lymph # [place] # Baso # Seg Neutrophils % Seg Neuts % (Manual) Lymphocytes % (Manual) Monocytes % (Manual) Eosinophils % (Manual) Basophils % (Manual) Nucleated RBC % Seg Neutrophils # Seg Neutrophils # Man Lymphocytes # (Manual) Monocytes # (Manual) Eosinophils # (Manual) Basophils # (Manual) PT INR Fibrinogen dRVVT Confirm Interp Factor V Activity POC ABG pH POC ABG pCO2 34.6 L POC ABG pO2 ABG pO2 ABG HCO3 ABG Base Excess ABG Hemoglobin Oxyhemoglobin Sodium Potassium Chloride Carbon Dioxide BUN Creatinine Glucose POC Glucose 265 H 184 H Lactic Acid Calcium Ionized Calcium Phosphorus Magnesium Direct Bilirubin AST ALT Alkaline Phosphatase Lactate Dehydrogenase Troponin T C-Reactive Protein Total Protein Albumin Prealbumin Triglycerides Cholesterol LDL Cholesterol Direct HDL Cholesterol 25-OH Vitamin D Total PTH Intact Urine pH Urine WBC (Auto) Urine Creatinine Urine Total Protein Fluid Total Protein Vancomycin Trough Rheumatoid Factor Complement C4 Miscellaneous Test Crossmatch 09/12/16 09/12/16 09/12/16 06:45 06:45 07:22 WBC 31.7 H RBC 3.54 L Hgb 8.3 L Hct 25.9 L MCV 73 L MCH 23 L MCHC RDW 18.9 H Plt Count Lymph % (Auto) [place] % (Auto) Lymph # [place] # Baso # Seg Neutrophils % Seg Neuts % (Manual) 88.5 H Lymphocytes % (Manual) 4.5 L Monocytes % (Manual) Eosinophils % (Manual) Basophils % (Manual) Nucleated RBC % Seg Neutrophils # Seg Neutrophils # Man 28.1 H Lymphocytes # (Manual) Monocytes # (Manual) 1.0 H Eosinophils # (Manual) Basophils # (Manual) PT INR Fibrinogen dRVVT Confirm Interp Factor V Activity POC ABG pH POC ABG pCO2 POC ABG pO2 ABG pO2 ABG HCO3 ABG Base Excess ABG Hemoglobin Oxyhemoglobin Sodium Potassium Chloride Carbon Dioxide 20 L BUN 115 H Creatinine 2.7 H Glucose 165 H POC Glucose Lactic Acid Calcium 8.0 L Ionized Calcium Phosphorus Magnesium Direct Bilirubin AST ALT Alkaline Phosphatase Lactate Dehydrogenase Troponin T C-Reactive Protein Total Protein Albumin Prealbumin Triglycerides 217 H Cholesterol LDL Cholesterol Direct HDL Cholesterol 25-OH Vitamin D Total PTH Intact Urine pH Urine WBC (Auto) Urine Creatinine Urine Total Protein Fluid Total Protein Vancomycin Trough Rheumatoid Factor Complement C4 Miscellaneous Test Crossmatch 09/12/16 09/12/16 09/12/16 07:22 09:59 12:21 WBC RBC Hgb Hct MCV MCH MCHC RDW Plt Count Lymph % (Auto) [place] % (Auto) Lymph # [place] # Baso # Seg Neutrophils % Seg Neuts % (Manual) Lymphocytes % (Manual) Monocytes % (Manual) Eosinophils % (Manual) Basophils % (Manual) Nucleated RBC % Seg Neutrophils # Seg Neutrophils # Man Lymphocytes # (Manual) Monocytes # (Manual) Eosinophils # (Manual) Basophils # (Manual) PT INR Fibrinogen dRVVT Confirm Interp Positive H Factor V Activity POC ABG pH POC ABG pCO2 POC ABG pO2 ABG pO2 ABG HCO3 ABG Base Excess ABG Hemoglobin Oxyhemoglobin Sodium Potassium Chloride Carbon Dioxide BUN Creatinine Glucose POC Glucose 224 H Lactic Acid Calcium Ionized Calcium Phosphorus Magnesium Direct Bilirubin AST ALT Alkaline Phosphatase Lactate Dehydrogenase Troponin T C-Reactive Protein 1.70 H Total Protein Albumin Prealbumin Triglycerides Cholesterol LDL Cholesterol Direct HDL Cholesterol 25-OH Vitamin D Total PTH Intact Urine pH Urine WBC (Auto) Urine Creatinine Urine Total Protein Fluid Total Protein Vancomycin Trough Rheumatoid Factor Complement C4 Miscellaneous Test Crossmatch 09/12/16 09/12/16 09/13/16 16:51 23:28 04:00 WBC 45.0 H* RBC Hgb 9.4 L Hct MCV 75 L MCH 23 L MCHC RDW 19.0 H Plt Count 470 H Lymph % (Auto) [place] % (Auto) Lymph # [place] # [place] # Seg Neutrophils % Seg Neuts % (Manual) 89.0 H Lymphocytes % (Manual) 5.0 L Monocytes % (Manual) Eosinophils % (Manual) Basophils % (Manual) Nucleated RBC % Seg Neutrophils # Seg Neutrophils # Man 40.1 H Lymphocytes # (Manual) Monocytes # (Manual) Eosinophils # (Manual) Basophils # (Manual) PT INR Fibrinogen dRVVT Confirm Interp Factor V Activity POC ABG pH POC ABG pCO2 POC ABG pO2 ABG pO2 ABG HCO3 ABG Base Excess ABG Hemoglobin Oxyhemoglobin Sodium Potassium Chloride Carbon Dioxide BUN Creatinine Glucose POC Glucose 169 H 150 H Lactic Acid Calcium Ionized Calcium Phosphorus Magnesium Direct Bilirubin AST ALT Alkaline Phosphatase Lactate Dehydrogenase Troponin T C-Reactive Protein Total Protein Albumin Prealbumin Triglycerides Cholesterol LDL Cholesterol Direct HDL Cholesterol 25-OH Vitamin D Total PTH Intact Urine pH Urine WBC (Auto) Urine Creatinine Urine Total Protein Fluid Total Protein Vancomycin Trough Rheumatoid Factor Complement C4 Miscellaneous Test Crossmatch 09/13/16 09/13/16 09/13/16 04:00 11:26 17:31 WBC RBC Hgb Hct MCV MCH MCHC RDW Plt Count Lymph % (Auto) [place] % (Auto) Lymph # [place] # Baso # Seg Neutrophils % Seg Neuts % (Manual) Lymphocytes % (Manual) Monocytes % (Manual) Eosinophils % (Manual) Basophils % (Manual) Nucleated RBC % Seg Neutrophils # Seg Neutrophils # Man Lymphocytes # (Manual) Monocytes # (Manual) Eosinophils # (Manual) Basophils # (Manual) PT INR Fibrinogen dRVVT Confirm Interp Factor V Activity POC ABG pH POC ABG pCO2 POC ABG pO2 ABG pO2 ABG HCO3 ABG Base Excess ABG Hemoglobin Oxyhemoglobin Sodium Potassium Chloride Carbon Dioxide 20 L BUN 116 H Creatinine 3.0 H Glucose 172 H POC Glucose 140 H 183 H Lactic Acid Calcium Ionized Calcium Phosphorus Magnesium Direct Bilirubin AST ALT Alkaline Phosphatase Lactate Dehydrogenase Troponin T C-Reactive Protein Total Protein 6.2 L Albumin 2.9 L Prealbumin Triglycerides Cholesterol LDL Cholesterol Direct HDL Cholesterol 25-OH Vitamin D Total PTH Intact Urine pH Urine WBC (Auto) Urine Creatinine Urine Total Protein Fluid Total Protein Vancomycin Trough Rheumatoid Factor Complement C4 Miscellaneous Test Crossmatch 09/13/16 09/14/16 09/14/16 23:23 04:06 04:07 WBC 29.4 H RBC Hgb 8.9 L Hct 27.3 L MCV 75 L MCH 24 L MCHC RDW 19.1 H Plt Count Lymph % (Auto) [place] % (Auto) Lymph # [place] # Baso # Seg Neutrophils % Seg Neuts % (Manual) 84.0 H Lymphocytes % (Manual) 6.0 L Monocytes % (Manual) 9.0 H Eosinophils % (Manual) Basophils % (Manual) Nucleated RBC % Seg Neutrophils # Seg Neutrophils # Man 24.7 H Lymphocytes # (Manual) Monocytes # (Manual) 2.6 H Eosinophils # (Manual) Basophils # (Manual) PT INR Fibrinogen dRVVT Confirm Interp Factor V Activity POC ABG pH 7.342 L POC ABG pCO2 POC ABG pO2 116 H ABG pO2 ABG HCO3 ABG Base Excess ABG Hemoglobin Oxyhemoglobin Sodium Potassium Chloride Carbon Dioxide BUN Creatinine Glucose POC Glucose 154 H Lactic Acid Calcium Ionized Calcium Phosphorus Magnesium Direct Bilirubin AST ALT Alkaline Phosphatase Lactate Dehydrogenase Troponin T C-Reactive Protein Total Protein Albumin Prealbumin Triglycerides Cholesterol LDL Cholesterol Direct HDL Cholesterol 25-OH Vitamin D Total PTH Intact Urine pH Urine WBC (Auto) Urine Creatinine Urine Total Protein Fluid Total Protein Vancomycin Trough Rheumatoid Factor Complement C4 Miscellaneous Test Crossmatch 09/14/16 09/14/16 09/14/16 04:07 05:29 12:19 WBC RBC Hgb Hct MCV MCH MCHC RDW Plt Count Lymph % (Auto) [place] % (Auto) Lymph # [place] # Baso # Seg Neutrophils % Seg Neuts % (Manual) Lymphocytes % (Manual) Monocytes % (Manual) Eosinophils % (Manual) Basophils % (Manual) Nucleated RBC % Seg Neutrophils # Seg Neutrophils # Man Lymphocytes # (Manual) Monocytes # (Manual) Eosinophils # (Manual) Basophils # (Manual) PT INR Fibrinogen dRVVT Confirm Interp Factor V Activity POC ABG pH POC ABG pCO2 POC ABG pO2 ABG pO2 ABG HCO3 ABG Base Excess ABG Hemoglobin Oxyhemoglobin Sodium 136 L Potassium Chloride Carbon Dioxide 18 L BUN 121 H Creatinine 2.8 H Glucose 214 H POC Glucose 239 H 181 H Lactic Acid Calcium Ionized Calcium Phosphorus Magnesium Direct Bilirubin AST ALT Alkaline Phosphatase Lactate Dehydrogenase Troponin T C-Reactive Protein Total Protein Albumin Prealbumin Triglycerides Cholesterol LDL Cholesterol Direct HDL Cholesterol 25-OH Vitamin D Total PTH Intact Urine pH Urine WBC (Auto) Urine Creatinine Urine Total Protein Fluid Total Protein Vancomycin Trough Rheumatoid Factor Complement C4 Miscellaneous Test Crossmatch 09/14/16 09/14/16 09/15/16 18:12 23:37 05:00 WBC 26.1 H RBC 3.05 L Hgb 7.2 L Hct 22.9 L MCV 75 L MCH 24 L MCHC RDW 19.0 H Plt Count Lymph % (Auto) [place] % (Auto) Lymph # [place] # Baso # Seg Neutrophils % Seg Neuts % (Manual) Lymphocytes % (Manual) Monocytes % (Manual) Eosinophils % (Manual) Basophils % (Manual) Nucleated RBC % Seg Neutrophils # Seg Neutrophils # Man Lymphocytes # (Manual) Monocytes # (Manual) Eosinophils # (Manual) Basophils # (Manual) PT INR Fibrinogen dRVVT Confirm Interp Factor V Activity POC ABG pH POC ABG pCO2 POC ABG pO2 ABG pO2 ABG HCO3 ABG Base Excess ABG Hemoglobin Oxyhemoglobin Sodium Potassium Chloride Carbon Dioxide BUN Creatinine Glucose POC Glucose 266 H 154 H Lactic Acid Calcium Ionized Calcium Phosphorus Magnesium Direct Bilirubin AST ALT Alkaline Phosphatase Lactate Dehydrogenase Troponin T C-Reactive Protein Total Protein Albumin Prealbumin Triglycerides Cholesterol LDL Cholesterol Direct HDL Cholesterol 25-OH Vitamin D Total PTH Intact Urine pH Urine WBC (Auto) Urine Creatinine Urine Total Protein Fluid Total Protein Vancomycin Trough Rheumatoid Factor Complement C4 Miscellaneous Test Crossmatch 09/15/16 09/15/16 09/15/16 05:00 05:17 12:45 WBC RBC Hgb Hct MCV MCH MCHC RDW Plt Count Lymph % (Auto) [place] % (Auto) Lymph # [place] # Baso # Seg Neutrophils % Seg Neuts % (Manual) Lymphocytes % (Manual) Monocytes % (Manual) Eosinophils % (Manual) Basophils % (Manual) Nucleated RBC % Seg Neutrophils # Seg Neutrophils # Man Lymphocytes # (Manual) Monocytes # (Manual) Eosinophils # (Manual) Basophils # (Manual) PT INR Fibrinogen dRVVT Confirm Interp Factor V Activity POC ABG pH POC ABG pCO2 POC ABG pO2 ABG pO2 ABG HCO3 ABG Base Excess ABG Hemoglobin Oxyhemoglobin Sodium Potassium 5.2 H Chloride Carbon Dioxide 18 L BUN 139 H Creatinine 3.7 H Glucose 227 H POC Glucose 226 H 244 H Lactic Acid Calcium 8.3 L Ionized Calcium Phosphorus Magnesium Direct Bilirubin AST ALT Alkaline Phosphatase Lactate Dehydrogenase Troponin T C-Reactive Protein Total Protein Albumin Prealbumin Triglycerides Cholesterol LDL Cholesterol Direct HDL Cholesterol 25-OH Vitamin D Total PTH Intact Urine pH Urine WBC (Auto) Urine Creatinine Urine Total Protein Fluid Total Protein Vancomycin Trough Rheumatoid Factor Complement C4 Miscellaneous Test Crossmatch 09/15/16 09/15/16 09/15/16 14:32 17:33 23:35 WBC RBC Hgb Hct MCV MCH MCHC RDW Plt Count Lymph % (Auto) [place] % (Auto) Lymph # [place] # Baso # Seg Neutrophils % Seg Neuts % (Manual) Lymphocytes % (Manual) Monocytes % (Manual) Eosinophils % (Manual) Basophils % (Manual) Nucleated RBC % Seg Neutrophils # Seg Neutrophils # Man Lymphocytes # (Manual) Monocytes # (Manual) Eosinophils # (Manual) Basophils # (Manual) PT INR Fibrinogen dRVVT Confirm Interp Factor V Activity POC ABG pH POC ABG pCO2 27.7 L POC ABG pO2 120 H ABG pO2 ABG HCO3 ABG Base Excess ABG Hemoglobin Oxyhemoglobin Sodium Potassium Chloride Carbon Dioxide BUN Creatinine Glucose POC Glucose 232 H 167 H Lactic Acid Calcium Ionized Calcium Phosphorus Magnesium Direct Bilirubin AST ALT Alkaline Phosphatase Lactate Dehydrogenase Troponin T C-Reactive Protein Total Protein Albumin Prealbumin Triglycerides Cholesterol LDL Cholesterol Direct HDL Cholesterol 25-OH Vitamin D Total PTH Intact Urine pH Urine WBC (Auto) Urine Creatinine Urine Total Protein Fluid Total Protein Vancomycin Trough Rheumatoid Factor Complement C4 Miscellaneous Test Crossmatch 09/16/16 09/16/16 09/16/16 03:58 10:27 10:27 WBC 19.0 H RBC 2.77 L Hgb 6.5 L Hct 20.9 L MCV 76 L MCH 23 L MCHC RDW 19.3 H Plt Count Lymph % (Auto) 11.0 L [place] % (Auto) Lymph # [place] # 1.1 H Baso # Seg Neutrophils % 82.5 H Seg Neuts % (Manual) Lymphocytes % (Manual) Monocytes % (Manual) Eosinophils % (Manual) Basophils % (Manual) Nucleated RBC % Seg Neutrophils # 15.7 H Seg Neutrophils # Man Lymphocytes # (Manual) Monocytes # (Manual) Eosinophils # (Manual) Basophils # (Manual) PT INR Fibrinogen dRVVT Confirm Interp Factor V Activity POC ABG pH POC ABG pCO2 POC ABG pO2 ABG pO2 ABG HCO3 ABG Base Excess ABG Hemoglobin Oxyhemoglobin Sodium Potassium Chloride 109.3 H Carbon Dioxide 18 L BUN 139 H Creatinine 4.1 H Glucose 144 H POC Glucose 146 H Lactic Acid Calcium 8.1 L Ionized Calcium Phosphorus Magnesium Direct Bilirubin AST ALT Alkaline Phosphatase Lactate Dehydrogenase Troponin T C-Reactive Protein Total Protein Albumin Prealbumin Triglycerides Cholesterol LDL Cholesterol Direct HDL Cholesterol 25-OH Vitamin D Total PTH Intact Urine pH Urine WBC (Auto) Urine Creatinine Urine Total Protein Fluid Total Protein Vancomycin Trough Rheumatoid Factor Complement C4 Miscellaneous Test Crossmatch 09/16/16 09/16/16 09/16/16 12:04 12:10 13:55 WBC RBC Hgb Hct MCV MCH MCHC RDW Plt Count Lymph % (Auto) [place] % (Auto) Lymph # [place] # Baso # Seg Neutrophils % Seg Neuts % (Manual) Lymphocytes % (Manual) Monocytes % (Manual) Eosinophils % (Manual) Basophils % (Manual) Nucleated RBC % Seg Neutrophils # Seg Neutrophils # Man Lymphocytes # (Manual) Monocytes # (Manual) Eosinophils # (Manual) Basophils # (Manual) PT INR Fibrinogen dRVVT Confirm Interp Factor V Activity POC ABG pH POC ABG pCO2 32.9 L POC ABG pO2 ABG pO2 ABG HCO3 ABG Base Excess ABG Hemoglobin Oxyhemoglobin Sodium Potassium Chloride Carbon Dioxide BUN Creatinine Glucose POC Glucose 185 H Lactic Acid Calcium Ionized Calcium Phosphorus Magnesium Direct Bilirubin AST ALT Alkaline Phosphatase Lactate Dehydrogenase Troponin T C-Reactive Protein Total Protein Albumin Prealbumin Triglycerides Cholesterol LDL Cholesterol Direct HDL Cholesterol 25-OH Vitamin D Total PTH Intact Urine pH Urine WBC (Auto) Urine Creatinine Urine Total Protein Fluid Total Protein Vancomycin Trough Rheumatoid Factor Complement C4 Miscellaneous Test Crossmatch See Detail 09/16/16 09/16/16 09/16/16 17:55 19:19 23:48 WBC RBC Hgb Hct MCV MCH MCHC RDW Plt Count Lymph % (Auto) [place] % (Auto) Lymph # [place] # Baso # Seg Neutrophils % Seg Neuts % (Manual) Lymphocytes % (Manual) Monocytes % (Manual) Eosinophils % (Manual) Basophils % (Manual) Nucleated RBC % Seg Neutrophils # Seg Neutrophils # Man Lymphocytes # (Manual) Monocytes # (Manual) Eosinophils # (Manual) Basophils # (Manual) PT INR Fibrinogen dRVVT Confirm Interp Factor V Activity POC ABG pH POC ABG pCO2 POC ABG pO2 ABG pO2 ABG HCO3 ABG Base Excess ABG Hemoglobin Oxyhemoglobin Sodium Potassium Chloride Carbon Dioxide BUN Creatinine Glucose POC Glucose 222 H 107 H Lactic Acid Calcium Ionized Calcium Phosphorus Magnesium Direct Bilirubin AST ALT Alkaline Phosphatase Lactate Dehydrogenase Troponin T C-Reactive Protein Total Protein Albumin Prealbumin Triglycerides Cholesterol LDL Cholesterol Direct HDL Cholesterol 25-OH Vitamin D Total PTH Intact Urine pH Urine WBC (Auto) Urine Creatinine 47.4 H Urine Total Protein 16 H Fluid Total Protein Vancomycin Trough Rheumatoid Factor Complement C4 Miscellaneous Test Crossmatch 09/17/16 09/17/16 09/17/16 03:45 03:45 04:55 WBC 19.6 H RBC 3.41 L Hgb 8.5 L Hct 26.7 L MCV 78 L MCH 25 L MCHC RDW 19.9 H Plt Count Lymph % (Auto) 9.3 L [place] % (Auto) Lymph # [place] # 1.2 H Baso # Seg Neutrophils % 83.9 H Seg Neuts % (Manual) Lymphocytes % (Manual) Monocytes % (Manual) Eosinophils % (Manual) Basophils % (Manual) Nucleated RBC % Seg Neutrophils # 16.4 H Seg Neutrophils # Man Lymphocytes # (Manual) Monocytes # (Manual) Eosinophils # (Manual) Basophils # (Manual) PT INR Fibrinogen dRVVT Confirm Interp Factor V Activity POC ABG pH POC ABG pCO2 POC ABG pO2 ABG pO2 ABG HCO3 ABG Base Excess ABG Hemoglobin Oxyhemoglobin Sodium 146 H Potassium 5.1 H Chloride 110.9 H Carbon Dioxide 16 L BUN 146 H Creatinine 4.0 H Glucose 108 H POC Glucose 133 H Lactic Acid Calcium Ionized Calcium Phosphorus Magnesium 3.00 H Direct Bilirubin AST ALT Alkaline Phosphatase Lactate Dehydrogenase Troponin T C-Reactive Protein Total Protein Albumin Prealbumin Triglycerides Cholesterol LDL Cholesterol Direct HDL Cholesterol 25-OH Vitamin D Total PTH Intact Urine pH Urine WBC (Auto) Urine Creatinine Urine Total Protein Fluid Total Protein Vancomycin Trough Rheumatoid Factor Complement C4 Miscellaneous Test Crossmatch 09/17/16 09/17/16 09/17/16 11:15 17:33 23:47 WBC RBC Hgb Hct MCV MCH MCHC RDW Plt Count Lymph % (Auto) [place] % (Auto) Lymph # [place] # Baso # Seg Neutrophils % Seg Neuts % (Manual) Lymphocytes % (Manual) Monocytes % (Manual) Eosinophils % (Manual) Basophils % (Manual) Nucleated RBC % Seg Neutrophils # Seg Neutrophils # Man Lymphocytes # (Manual) Monocytes # (Manual) Eosinophils # (Manual) Basophils # (Manual) PT INR Fibrinogen dRVVT Confirm Interp Factor V Activity POC ABG pH POC ABG pCO2 POC ABG pO2 ABG pO2 ABG HCO3 ABG Base Excess ABG Hemoglobin Oxyhemoglobin Sodium Potassium Chloride Carbon Dioxide BUN Creatinine Glucose POC Glucose 176 H 246 H 148 H Lactic Acid Calcium Ionized Calcium Phosphorus Magnesium Direct Bilirubin AST ALT Alkaline Phosphatase Lactate Dehydrogenase Troponin T C-Reactive Protein Total Protein Albumin Prealbumin Triglycerides Cholesterol LDL Cholesterol Direct HDL Cholesterol 25-OH Vitamin D Total PTH Intact Urine pH Urine WBC (Auto) Urine Creatinine Urine Total Protein Fluid Total Protein Vancomycin Trough Rheumatoid Factor Complement C4 Miscellaneous Test Crossmatch 09/18/16 09/18/16 09/18/16 05:33 08:31 08:31 WBC 18.0 H RBC 3.17 L Hgb 9.0 L Hct 25.7 L MCV MCH MCHC 35 H RDW 20.4 H Plt Count Lymph % (Auto) [place] % (Auto) Lymph # [place] # Baso # Seg Neutrophils % Seg Neuts % (Manual) Lymphocytes % (Manual) Monocytes % (Manual) Eosinophils % (Manual) Basophils % (Manual) Nucleated RBC % Seg Neutrophils # Seg Neutrophils # Man Lymphocytes # (Manual) Monocytes # (Manual) Eosinophils # (Manual) Basophils # (Manual) PT INR Fibrinogen dRVVT Confirm Interp Factor V Activity POC ABG pH POC ABG pCO2 POC ABG pO2 ABG pO2 ABG HCO3 ABG Base Excess ABG Hemoglobin Oxyhemoglobin Sodium Potassium Chloride Carbon Dioxide 15 L BUN 124 H Creatinine 3.8 H Glucose POC Glucose 120 H Lactic Acid Calcium 8.1 L Ionized Calcium Phosphorus Magnesium Direct Bilirubin AST ALT Alkaline Phosphatase Lactate Dehydrogenase Troponin T C-Reactive Protein Total Protein Albumin Prealbumin Triglycerides Cholesterol LDL Cholesterol Direct HDL Cholesterol 25-OH Vitamin D Total PTH Intact Urine pH Urine WBC (Auto) Urine Creatinine Urine Total Protein Fluid Total Protein Vancomycin Trough Rheumatoid Factor Complement C4 Miscellaneous Test Crossmatch 09/18/16 09/18/16 09/18/16 12:03 15:34 17:50 WBC RBC Hgb Hct MCV MCH MCHC RDW Plt Count Lymph % (Auto) [place] % (Auto) Lymph # [place] # Baso # Seg Neutrophils % Seg Neuts % (Manual) Lymphocytes % (Manual) Monocytes % (Manual) Eosinophils % (Manual) Basophils % (Manual) Nucleated RBC % Seg Neutrophils # Seg Neutrophils # Man Lymphocytes # (Manual) Monocytes # (Manual) Eosinophils # (Manual) Basophils # (Manual) PT INR Fibrinogen dRVVT Confirm Interp Factor V Activity POC ABG pH POC ABG pCO2 25.7 L POC ABG pO2 66 L ABG pO2 ABG HCO3 ABG Base Excess ABG Hemoglobin Oxyhemoglobin Sodium Potassium Chloride Carbon Dioxide BUN Creatinine Glucose POC Glucose 156 H 220 H Lactic Acid Calcium Ionized Calcium Phosphorus Magnesium Direct Bilirubin AST ALT Alkaline Phosphatase Lactate Dehydrogenase Troponin T C-Reactive Protein Total Protein Albumin Prealbumin Triglycerides Cholesterol LDL Cholesterol Direct HDL Cholesterol 25-OH Vitamin D Total PTH Intact Urine pH Urine WBC (Auto) Urine Creatinine Urine Total Protein Fluid Total Protein Vancomycin Trough Rheumatoid Factor Complement C4 Miscellaneous Test Crossmatch 09/19/16 09/19/16 09/19/16 06:21 09:50 09:50 WBC 17.1 H RBC 3.49 L Hgb 9.0 L Hct 28.1 L MCV MCH 26 L MCHC RDW 20.8 H Plt Count Lymph % (Auto) 11.5 L [place] % (Auto) 7.5 H Lymph # [place] # 1.3 H Baso # Seg Neutrophils % 79.8 H Seg Neuts % (Manual) Lymphocytes % (Manual) Monocytes % (Manual) Eosinophils % (Manual) Basophils % (Manual) Nucleated RBC % Seg Neutrophils # 13.7 H Seg Neutrophils # Man Lymphocytes # (Manual) Monocytes # (Manual) Eosinophils # (Manual) Basophils # (Manual) PT INR Fibrinogen dRVVT Confirm Interp Factor V Activity POC ABG pH POC ABG pCO2 POC ABG pO2 ABG pO2 ABG HCO3 ABG Base Excess ABG Hemoglobin Oxyhemoglobin Sodium Potassium Chloride 108.6 H Carbon Dioxide 15 L BUN 125 H Creatinine 4.1 H Glucose 124 H POC Glucose 119 H Lactic Acid Calcium Ionized Calcium Phosphorus Magnesium Direct Bilirubin AST ALT Alkaline Phosphatase Lactate Dehydrogenase Troponin T C-Reactive Protein Total Protein Albumin Prealbumin Triglycerides Cholesterol LDL Cholesterol Direct HDL Cholesterol 25-OH Vitamin D Total PTH Intact Urine pH Urine WBC (Auto) Urine Creatinine Urine Total Protein Fluid Total Protein Vancomycin Trough Rheumatoid Factor Complement C4 Miscellaneous Test Crossmatch 09/19/16 09/19/16 09/19/16 11:25 17:53 23:36 WBC RBC Hgb Hct MCV MCH MCHC RDW Plt Count Lymph % (Auto) [place] % (Auto) Lymph # [place] # Baso # Seg Neutrophils % Seg Neuts % (Manual) Lymphocytes % (Manual) Monocytes % (Manual) Eosinophils % (Manual) Basophils % (Manual) Nucleated RBC % Seg Neutrophils # Seg Neutrophils # Man Lymphocytes # (Manual) Monocytes # (Manual) Eosinophils # (Manual) Basophils # (Manual) PT INR Fibrinogen dRVVT Confirm Interp Factor V Activity POC ABG pH POC ABG pCO2 POC ABG pO2 ABG pO2 ABG HCO3 ABG Base Excess ABG Hemoglobin Oxyhemoglobin Sodium Potassium Chloride Carbon Dioxide BUN Creatinine Glucose POC Glucose 160 H 245 H 121 H Lactic Acid Calcium Ionized Calcium Phosphorus Magnesium Direct Bilirubin AST ALT Alkaline Phosphatase Lactate Dehydrogenase Troponin T C-Reactive Protein Total Protein Albumin Prealbumin Triglycerides Cholesterol LDL Cholesterol Direct HDL Cholesterol 25-OH Vitamin D Total PTH Intact Urine pH Urine WBC (Auto) Urine Creatinine Urine Total Protein Fluid Total Protein Vancomycin Trough Rheumatoid Factor Complement C4 Miscellaneous Test Crossmatch 09/20/16 09/20/16 09/20/16 04:10 04:10 04:10 WBC 17.0 H RBC 3.21 L Hgb 8.2 L Hct 25.5 L MCV MCH 26 L MCHC RDW 20.9 H Plt Count Lymph % (Auto) [place] % (Auto) Lymph # [place] # Baso # Seg Neutrophils % Seg Neuts % (Manual) Lymphocytes % (Manual) Monocytes % (Manual) Eosinophils % (Manual) Basophils % (Manual) Nucleated RBC % Seg Neutrophils # Seg Neutrophils # Man Lymphocytes # (Manual) Monocytes # (Manual) Eosinophils # (Manual) Basophils # (Manual) PT INR Fibrinogen dRVVT Confirm Interp Factor V Activity POC ABG pH POC ABG pCO2 POC ABG pO2 ABG pO2 ABG HCO3 ABG Base Excess ABG Hemoglobin Oxyhemoglobin Sodium Potassium Chloride 111.0 H Carbon Dioxide 16 L BUN 129 H Creatinine 3.7 H Glucose 115 H POC Glucose Lactic Acid Calcium 8.2 L Ionized Calcium Phosphorus Magnesium Direct Bilirubin AST ALT Alkaline Phosphatase Lactate Dehydrogenase Troponin T C-Reactive Protein Total Protein Albumin Prealbumin Triglycerides 243 H Cholesterol LDL Cholesterol Direct HDL Cholesterol 25-OH Vitamin D Total PTH Intact Urine pH Urine WBC (Auto) Urine Creatinine Urine Total Protein Fluid Total Protein Vancomycin Trough Rheumatoid Factor Complement C4 Miscellaneous Test Crossmatch 09/20/16 09/20/16 09/20/16 05:40 11:52 16:50 WBC RBC Hgb Hct MCV MCH MCHC RDW Plt Count Lymph % (Auto) [place] % (Auto) Lymph # [place] # Baso # Seg Neutrophils % Seg Neuts % (Manual) Lymphocytes % (Manual) Monocytes % (Manual) Eosinophils % (Manual) Basophils % (Manual) Nucleated RBC % Seg Neutrophils # Seg Neutrophils # Man Lymphocytes # (Manual) Monocytes # (Manual) Eosinophils # (Manual) Basophils # (Manual) PT INR Fibrinogen dRVVT Confirm Interp Factor V Activity POC ABG pH POC ABG pCO2 POC ABG pO2 ABG pO2 ABG HCO3 ABG Base Excess ABG Hemoglobin Oxyhemoglobin Sodium Potassium Chloride Carbon Dioxide BUN Creatinine Glucose POC Glucose 131 H 183 H 236 H Lactic Acid Calcium Ionized Calcium Phosphorus Magnesium Direct Bilirubin AST ALT Alkaline Phosphatase Lactate Dehydrogenase Troponin T C-Reactive Protein Total Protein Albumin Prealbumin Triglycerides Cholesterol LDL Cholesterol Direct HDL Cholesterol 25-OH Vitamin D Total PTH Intact Urine pH Urine WBC (Auto) Urine Creatinine Urine Total Protein Fluid Total Protein Vancomycin Trough Rheumatoid Factor Complement C4 Miscellaneous Test Crossmatch 09/20/16 09/21/16 09/21/16 23:51 03:30 04:44 WBC RBC Hgb Hct MCV MCH MCHC RDW Plt Count Lymph % (Auto) [place] % (Auto) Lymph # [place] # Baso # Seg Neutrophils % Seg Neuts % (Manual) Lymphocytes % (Manual) Monocytes % (Manual) Eosinophils % (Manual) Basophils % (Manual) Nucleated RBC % Seg Neutrophils # Seg Neutrophils # Man Lymphocytes # (Manual) Monocytes # (Manual) Eosinophils # (Manual) Basophils # (Manual) PT INR Fibrinogen dRVVT Confirm Interp Factor V Activity POC ABG pH POC ABG pCO2 POC ABG pO2 ABG pO2 ABG HCO3 ABG Base Excess ABG Hemoglobin Oxyhemoglobin Sodium Potassium Chloride Carbon Dioxide BUN Creatinine Glucose POC Glucose 114 H 141 H Lactic Acid Calcium Ionized Calcium Phosphorus Magnesium 2.70 H Direct Bilirubin AST ALT Alkaline Phosphatase Lactate Dehydrogenase Troponin T C-Reactive Protein Total Protein Albumin Prealbumin Triglycerides Cholesterol LDL Cholesterol Direct HDL Cholesterol 25-OH Vitamin D Total PTH Intact Urine pH Urine WBC (Auto) Urine Creatinine Urine Total Protein Fluid Total Protein Vancomycin Trough Rheumatoid Factor Complement C4 Miscellaneous Test Crossmatch 09/21/16 09/21/16 09/21/16 07:45 07:45 10:01 WBC 13.8 H RBC 2.94 L Hgb 7.5 L Hct 23.5 L MCV MCH 26 L MCHC RDW 21.2 H Plt Count Lymph % (Auto) 6.9 L [place] % (Auto) 9.4 H Lymph # 0.9 L [place] # 1.3 H Baso # Seg Neutrophils % 83.2 H Seg Neuts % (Manual) Lymphocytes % (Manual) Monocytes % (Manual) Eosinophils % (Manual) Basophils % (Manual) Nucleated RBC % Seg Neutrophils # 11.5 H Seg Neutrophils # Man Lymphocytes # (Manual) Monocytes # (Manual) Eosinophils # (Manual) Basophils # (Manual) PT INR Fibrinogen dRVVT Confirm Interp Factor V Activity POC ABG pH 7.308 L POC ABG pCO2 31.9 L POC ABG pO2 148 H ABG pO2 ABG HCO3 ABG Base Excess ABG Hemoglobin Oxyhemoglobin Sodium 147 H Potassium Chloride 114.2 H Carbon Dioxide 15 L BUN 120 H Creatinine 3.9 H Glucose 156 H POC Glucose Lactic Acid Calcium 8.2 L Ionized Calcium Phosphorus Magnesium Direct Bilirubin AST ALT Alkaline Phosphatase Lactate Dehydrogenase Troponin T C-Reactive Protein Total Protein Albumin Prealbumin Triglycerides Cholesterol LDL Cholesterol Direct HDL Cholesterol 25-OH Vitamin D Total PTH Intact Urine pH Urine WBC (Auto) Urine Creatinine Urine Total Protein Fluid Total Protein Vancomycin Trough Rheumatoid Factor Complement C4 Miscellaneous Test Crossmatch 09/21/16 09/21/16 09/21/16 12:00 12:03 13:00 WBC RBC Hgb Hct MCV MCH MCHC RDW Plt Count Lymph % (Auto) [place] % (Auto) Lymph # [place] # Baso # Seg Neutrophils % Seg Neuts % (Manual) Lymphocytes % (Manual) Monocytes % (Manual) Eosinophils % (Manual) Basophils % (Manual) Nucleated RBC % Seg Neutrophils # Seg Neutrophils # Man Lymphocytes # (Manual) Monocytes # (Manual) Eosinophils # (Manual) Basophils # (Manual) PT INR Fibrinogen dRVVT Confirm Interp Factor V Activity POC ABG pH POC ABG pCO2 POC ABG pO2 ABG pO2 ABG HCO3 ABG Base Excess ABG Hemoglobin Oxyhemoglobin Sodium Potassium Chloride Carbon Dioxide BUN Creatinine Glucose POC Glucose 163 H Lactic Acid Calcium Ionized Calcium Phosphorus Magnesium Direct Bilirubin AST ALT Alkaline Phosphatase Lactate Dehydrogenase Troponin T C-Reactive Protein Total Protein Albumin Prealbumin Triglycerides Cholesterol LDL Cholesterol Direct HDL Cholesterol 25-OH Vitamin D Total PTH Intact Urine pH Urine WBC (Auto) Urine Creatinine 54.8 H Urine Total Protein Fluid Total Protein Vancomycin Trough 2.3 L Rheumatoid Factor Complement C4 Miscellaneous Test Crossmatch 09/21/16 09/21/16 09/22/16 16:51 23:17 06:27 WBC RBC Hgb Hct MCV MCH MCHC RDW Plt Count Lymph % (Auto) [place] % (Auto) Lymph # [place] # Baso # Seg Neutrophils % Seg Neuts % (Manual) Lymphocytes % (Manual) Monocytes % (Manual) Eosinophils % (Manual) Basophils % (Manual) Nucleated RBC % Seg Neutrophils # Seg Neutrophils # Man Lymphocytes # (Manual) Monocytes # (Manual) Eosinophils # (Manual) Basophils # (Manual) PT INR Fibrinogen dRVVT Confirm Interp Factor V Activity POC ABG pH POC ABG pCO2 POC ABG pO2 ABG pO2 ABG HCO3 ABG Base Excess ABG Hemoglobin Oxyhemoglobin Sodium Potassium Chloride Carbon Dioxide BUN Creatinine Glucose POC Glucose 206 H 114 H 115 H Lactic Acid Calcium Ionized Calcium Phosphorus Magnesium Direct Bilirubin AST ALT Alkaline Phosphatase Lactate Dehydrogenase Troponin T C-Reactive Protein Total Protein Albumin Prealbumin Triglycerides Cholesterol LDL Cholesterol Direct HDL Cholesterol 25-OH Vitamin D Total PTH Intact Urine pH Urine WBC (Auto) Urine Creatinine Urine Total Protein Fluid Total Protein Vancomycin Trough Rheumatoid Factor Complement C4 Miscellaneous Test Crossmatch 09/22/16 09/22/16 09/22/16 07:50 07:50 12:00 WBC 17.8 H RBC 3.04 L Hgb 8.0 L Hct 24.7 L MCV MCH 26 L MCHC RDW 21.6 H Plt Count Lymph % (Auto) [place] % (Auto) Lymph # [place] # Baso # Seg Neutrophils % Seg Neuts % (Manual) Lymphocytes % (Manual) Monocytes % (Manual) Eosinophils % (Manual) Basophils % (Manual) Nucleated RBC % Seg Neutrophils # Seg Neutrophils # Man Lymphocytes # (Manual) Monocytes # (Manual) Eosinophils # (Manual) Basophils # (Manual) PT INR Fibrinogen dRVVT Confirm Interp Factor V Activity POC ABG pH POC ABG pCO2 POC ABG pO2 ABG pO2 ABG HCO3 ABG Base Excess ABG Hemoglobin Oxyhemoglobin Sodium 150 H Potassium Chloride 118.2 H Carbon Dioxide 14 L BUN 111 H Creatinine 3.7 H Glucose 157 H POC Glucose 183 H Lactic Acid Calcium Ionized Calcium Phosphorus Magnesium Direct Bilirubin AST ALT Alkaline Phosphatase Lactate Dehydrogenase Troponin T C-Reactive Protein Total Protein Albumin Prealbumin Triglycerides Cholesterol LDL Cholesterol Direct HDL Cholesterol 25-OH Vitamin D Total PTH Intact Urine pH Urine WBC (Auto) Urine Creatinine Urine Total Protein Fluid Total Protein Vancomycin Trough Rheumatoid Factor Complement C4 Miscellaneous Test Crossmatch 09/22/16 09/22/16 09/23/16 17:29 23:10 05:00 WBC 19.2 H RBC 3.13 L Hgb 8.0 L Hct 25.2 L MCV MCH 26 L MCHC RDW 22.1 H Plt Count Lymph % (Auto) [place] % (Auto) Lymph # [place] # Baso # Seg Neutrophils % Seg Neuts % (Manual) 92.0 H Lymphocytes % (Manual) 3.0 L Monocytes % (Manual) Eosinophils % (Manual) Basophils % (Manual) Nucleated RBC % Seg Neutrophils # Seg Neutrophils # Man 17.7 H Lymphocytes # (Manual) 0.6 L Monocytes # (Manual) Eosinophils # (Manual) Basophils # (Manual) PT INR Fibrinogen dRVVT Confirm Interp Factor V Activity POC ABG pH POC ABG pCO2 POC ABG pO2 ABG pO2 ABG HCO3 ABG Base Excess ABG Hemoglobin Oxyhemoglobin Sodium Potassium Chloride Carbon Dioxide BUN Creatinine Glucose POC Glucose 197 H 169 H Lactic Acid Calcium Ionized Calcium Phosphorus Magnesium Direct Bilirubin AST ALT Alkaline Phosphatase Lactate Dehydrogenase Troponin T C-Reactive Protein Total Protein Albumin Prealbumin Triglycerides Cholesterol LDL Cholesterol Direct HDL Cholesterol 25-OH Vitamin D Total PTH Intact Urine pH Urine WBC (Auto) Urine Creatinine Urine Total Protein Fluid Total Protein Vancomycin Trough Rheumatoid Factor Complement C4 Miscellaneous Test Crossmatch 09/23/16 09/23/16 09/23/16 05:00 05:00 05:10 WBC RBC Hgb Hct MCV MCH MCHC RDW Plt Count Lymph % (Auto) [place] % (Auto) Lymph # [place] # Baso # Seg Neutrophils % Seg Neuts % (Manual) Lymphocytes % (Manual) Monocytes % (Manual) Eosinophils % (Manual) Basophils % (Manual) Nucleated RBC % Seg Neutrophils # Seg Neutrophils # Man Lymphocytes # (Manual) Monocytes # (Manual) Eosinophils # (Manual) Basophils # (Manual) PT INR Fibrinogen dRVVT Confirm Interp Factor V Activity POC ABG pH POC ABG pCO2 POC ABG pO2 ABG pO2 ABG HCO3 ABG Base Excess ABG Hemoglobin Oxyhemoglobin Sodium 147 H Potassium 3.2 L Chloride 115.7 H Carbon Dioxide 13 L BUN 111 H Creatinine 3.8 H Glucose 194 H POC Glucose 188 H Lactic Acid Calcium 7.3 L D Ionized Calcium Phosphorus Magnesium Direct Bilirubin AST ALT Alkaline Phosphatase Lactate Dehydrogenase Troponin T C-Reactive Protein 3.20 H Total Protein Albumin Prealbumin Triglycerides Cholesterol LDL Cholesterol Direct HDL Cholesterol 25-OH Vitamin D Total PTH Intact Urine pH Urine WBC (Auto) Urine Creatinine Urine Total Protein Fluid Total Protein Vancomycin Trough Rheumatoid Factor Complement C4 Miscellaneous Test Crossmatch 09/23/16 09/23/16 09/23/16 11:37 12:29 18:01 WBC RBC Hgb Hct MCV MCH MCHC RDW Plt Count Lymph % (Auto) [place] % (Auto) Lymph # [place] # Baso # Seg Neutrophils % Seg Neuts % (Manual) Lymphocytes % (Manual) Monocytes % (Manual) Eosinophils % (Manual) Basophils % (Manual) Nucleated RBC % Seg Neutrophils # Seg Neutrophils # Man Lymphocytes # (Manual) Monocytes # (Manual) Eosinophils # (Manual) Basophils # (Manual) PT INR Fibrinogen dRVVT Confirm Interp Factor V Activity POC ABG pH POC ABG pCO2 18.9 L POC ABG pO2 143 H ABG pO2 ABG HCO3 ABG Base Excess ABG Hemoglobin Oxyhemoglobin Sodium Potassium Chloride Carbon Dioxide BUN Creatinine Glucose POC Glucose 153 H 108 H Lactic Acid Calcium Ionized Calcium Phosphorus Magnesium Direct Bilirubin AST ALT Alkaline Phosphatase Lactate Dehydrogenase Troponin T C-Reactive Protein Total Protein Albumin Prealbumin Triglycerides Cholesterol LDL Cholesterol Direct HDL Cholesterol 25-OH Vitamin D Total PTH Intact Urine pH Urine WBC (Auto) Urine Creatinine Urine Total Protein Fluid Total Protein Vancomycin Trough Rheumatoid Factor Complement C4 Miscellaneous Test Crossmatch 09/23/16 09/23/16 09/24/16 21:19 23:43 05:16 WBC RBC Hgb Hct MCV MCH MCHC RDW Plt Count Lymph % (Auto) [place] % (Auto) Lymph # [place] # Baso # Seg Neutrophils % Seg Neuts % (Manual) Lymphocytes % (Manual) Monocytes % (Manual) Eosinophils % (Manual) Basophils % (Manual) Nucleated RBC % Seg Neutrophils # Seg Neutrophils # Man Lymphocytes # (Manual) Monocytes # (Manual) Eosinophils # (Manual) Basophils # (Manual) PT INR Fibrinogen dRVVT Confirm Interp Factor V Activity POC ABG pH POC ABG pCO2 17.3 L POC ABG pO2 112 H ABG pO2 ABG HCO3 ABG Base Excess ABG Hemoglobin Oxyhemoglobin Sodium Potassium Chloride Carbon Dioxide BUN Creatinine Glucose POC Glucose 143 H 164 H Lactic Acid Calcium Ionized Calcium Phosphorus Magnesium Direct Bilirubin AST ALT Alkaline Phosphatase Lactate Dehydrogenase Troponin T C-Reactive Protein Total Protein Albumin Prealbumin Triglycerides Cholesterol LDL Cholesterol Direct HDL Cholesterol 25-OH Vitamin D Total PTH Intact Urine pH Urine WBC (Auto) Urine Creatinine Urine Total Protein Fluid Total Protein Vancomycin Trough Rheumatoid Factor Complement C4 Miscellaneous Test Crossmatch 09/24/16 09/24/16 09/24/16 05:21 11:58 17:06 WBC RBC Hgb Hct MCV MCH MCHC RDW Plt Count Lymph % (Auto) [place] % (Auto) Lymph # [place] # Baso # Seg Neutrophils % Seg Neuts % (Manual) Lymphocytes % (Manual) Monocytes % (Manual) Eosinophils % (Manual) Basophils % (Manual) Nucleated RBC % Seg Neutrophils # Seg Neutrophils # Man Lymphocytes # (Manual) Monocytes # (Manual) Eosinophils # (Manual) Basophils # (Manual) PT INR Fibrinogen dRVVT Confirm Interp Factor V Activity POC ABG pH POC ABG pCO2 POC ABG pO2 ABG pO2 ABG HCO3 ABG Base Excess ABG Hemoglobin Oxyhemoglobin Sodium Potassium Chloride Carbon Dioxide 10 L BUN 103 H Creatinine 4.3 H Glucose 163 H POC Glucose 173 H 167 H Lactic Acid Calcium 6.5 L Ionized Calcium Phosphorus Magnesium Direct Bilirubin AST ALT Alkaline Phosphatase Lactate Dehydrogenase Troponin T C-Reactive Protein Total Protein Albumin Prealbumin Triglycerides Cholesterol LDL Cholesterol Direct HDL Cholesterol 25-OH Vitamin D Total PTH Intact Urine pH Urine WBC (Auto) Urine Creatinine Urine Total Protein Fluid Total Protein Vancomycin Trough Rheumatoid Factor Complement C4 Miscellaneous Test Crossmatch 09/24/16 09/24/16 09/24/16 20:15 21:02 23:48 WBC RBC Hgb Hct MCV MCH MCHC RDW Plt Count Lymph % (Auto) [place] % (Auto) Lymph # [place] # Baso # Seg Neutrophils % Seg Neuts % (Manual) Lymphocytes % (Manual) Monocytes % (Manual) Eosinophils % (Manual) Basophils % (Manual) Nucleated RBC % Seg Neutrophils # Seg Neutrophils # Man Lymphocytes # (Manual) Monocytes # (Manual) Eosinophils # (Manual) Basophils # (Manual) PT INR Fibrinogen dRVVT Confirm Interp Factor V Activity POC ABG pH 7.288 L POC ABG pCO2 30.2 L 21.5 L POC ABG pO2 32 L 39 L ABG pO2 ABG HCO3 ABG Base Excess ABG Hemoglobin Oxyhemoglobin Sodium Potassium Chloride Carbon Dioxide BUN Creatinine Glucose POC Glucose 109 H Lactic Acid Calcium Ionized Calcium Phosphorus Magnesium Direct Bilirubin AST ALT Alkaline Phosphatase Lactate Dehydrogenase Troponin T C-Reactive Protein Total Protein Albumin Prealbumin Triglycerides Cholesterol LDL Cholesterol Direct HDL Cholesterol 25-OH Vitamin D Total PTH Intact Urine pH Urine WBC (Auto) Urine Creatinine Urine Total Protein Fluid Total Protein Vancomycin Trough Rheumatoid Factor Complement C4 Miscellaneous Test Crossmatch 09/25/16 09/25/16 09/25/16 04:20 04:20 04:20 WBC RBC 2.58 L Hgb 7.0 L Hct 21.0 L MCV MCH 27 L MCHC RDW 23.8 H Plt Count Lymph % (Auto) [place] % (Auto) Lymph # [place] # Baso # Seg Neutrophils % Seg Neuts % (Manual) Lymphocytes % (Manual) 12.0 L Monocytes % (Manual) Eosinophils % (Manual) 7.0 H Basophils % (Manual) 2.0 H Nucleated RBC % Seg Neutrophils # Seg Neutrophils # Man Lymphocytes # (Manual) 0.9 L Monocytes # (Manual) Eosinophils # (Manual) 0.5 H Basophils # (Manual) PT INR Fibrinogen dRVVT Confirm Interp Factor V Activity POC ABG pH POC ABG pCO2 POC ABG pO2 ABG pO2 ABG HCO3 ABG Base Excess ABG Hemoglobin Oxyhemoglobin Sodium Potassium Chloride Carbon Dioxide 15 L BUN 72 H Creatinine 3.8 H Glucose POC Glucose Lactic Acid Calcium 6.0 L Ionized Calcium Phosphorus 4.60 H Magnesium 1.60 L Direct Bilirubin AST ALT Alkaline Phosphatase Lactate Dehydrogenase Troponin T C-Reactive Protein Total Protein Albumin Prealbumin Triglycerides Cholesterol LDL Cholesterol Direct HDL Cholesterol 25-OH Vitamin D Total PTH Intact Urine pH Urine WBC (Auto) Urine Creatinine Urine Total Protein Fluid Total Protein Vancomycin Trough Rheumatoid Factor Complement C4 Miscellaneous Test Crossmatch 09/25/16 09/25/16 09/25/16 04:57 08:02 10:30 WBC RBC Hgb Hct MCV MCH MCHC RDW Plt Count Lymph % (Auto) [place] % (Auto) Lymph # [place] # Baso # Seg Neutrophils % Seg Neuts % (Manual) Lymphocytes % (Manual) Monocytes % (Manual) Eosinophils % (Manual) Basophils % (Manual) Nucleated RBC % Seg Neutrophils # Seg Neutrophils # Man Lymphocytes # (Manual) Monocytes # (Manual) Eosinophils # (Manual) Basophils # (Manual) PT INR Fibrinogen dRVVT Confirm Interp Factor V Activity POC ABG pH POC ABG pCO2 24.7 L POC ABG pO2 152 H ABG pO2 ABG HCO3 ABG Base Excess ABG Hemoglobin Oxyhemoglobin Sodium Potassium Chloride Carbon Dioxide BUN Creatinine Glucose POC Glucose 113 H Lactic Acid Calcium Ionized Calcium Phosphorus Magnesium Direct Bilirubin AST ALT Alkaline Phosphatase Lactate Dehydrogenase Troponin T C-Reactive Protein Total Protein Albumin Prealbumin Triglycerides Cholesterol LDL Cholesterol Direct HDL Cholesterol 25-OH Vitamin D Total PTH Intact Urine pH Urine WBC (Auto) Urine Creatinine Urine Total Protein Fluid Total Protein Vancomycin Trough Rheumatoid Factor Complement C4 Miscellaneous Test Crossmatch See Detail 09/25/16 09/25/16 09/25/16 12:05 17:44 23:47 WBC RBC Hgb Hct MCV MCH MCHC RDW Plt Count Lymph % (Auto) [place] % (Auto) Lymph # [place] # Baso # Seg Neutrophils % Seg Neuts % (Manual) Lymphocytes % (Manual) Monocytes % (Manual) Eosinophils % (Manual) Basophils % (Manual) Nucleated RBC % Seg Neutrophils # Seg Neutrophils # Man Lymphocytes # (Manual) Monocytes # (Manual) Eosinophils # (Manual) Basophils # (Manual) PT INR Fibrinogen dRVVT Confirm Interp Factor V Activity POC ABG pH POC ABG pCO2 POC ABG pO2 ABG pO2 ABG HCO3 ABG Base Excess ABG Hemoglobin Oxyhemoglobin Sodium Potassium Chloride Carbon Dioxide BUN Creatinine Glucose POC Glucose 117 H 119 H 150 H Lactic Acid Calcium Ionized Calcium Phosphorus Magnesium Direct Bilirubin AST ALT Alkaline Phosphatase Lactate Dehydrogenase Troponin T C-Reactive Protein Total Protein Albumin Prealbumin Triglycerides Cholesterol LDL Cholesterol Direct HDL Cholesterol 25-OH Vitamin D Total PTH Intact Urine pH Urine WBC (Auto) Urine Creatinine Urine Total Protein Fluid Total Protein Vancomycin Trough Rheumatoid Factor Complement C4 Miscellaneous Test Crossmatch 09/26/16 09/26/16 09/26/16 04:25 04:25 04:25 WBC RBC 2.65 L Hgb 7.4 L Hct 21.6 L MCV MCH MCHC RDW 22.5 H Plt Count Lymph % (Auto) [place] % (Auto) Lymph # [place] # Baso # Seg Neutrophils % Seg Neuts % (Manual) Lymphocytes % (Manual) 6.0 L Monocytes % (Manual) Eosinophils % (Manual) 11.0 H Basophils % (Manual) Nucleated RBC % Seg Neutrophils # Seg Neutrophils # Man Lymphocytes # (Manual) 0.4 L Monocytes # (Manual) Eosinophils # (Manual) 0.6 H Basophils # (Manual) PT INR Fibrinogen dRVVT Confirm Interp Factor V Activity POC ABG pH POC ABG pCO2 POC ABG pO2 ABG pO2 ABG HCO3 ABG Base Excess ABG Hemoglobin Oxyhemoglobin Sodium Potassium Chloride 97.0 L Carbon Dioxide 19 L BUN 43 H Creatinine 2.6 H Glucose 130 H POC Glucose Lactic Acid 4.40 H* Calcium 6.7 L Ionized Calcium Phosphorus Magnesium Direct Bilirubin AST ALT Alkaline Phosphatase Lactate Dehydrogenase Troponin T C-Reactive Protein Total Protein Albumin Prealbumin Triglycerides Cholesterol LDL Cholesterol Direct HDL Cholesterol 25-OH Vitamin D Total PTH Intact Urine pH Urine WBC (Auto) Urine Creatinine Urine Total Protein Fluid Total Protein Vancomycin Trough Rheumatoid Factor Complement C4 Miscellaneous Test Crossmatch 09/26/16 09/26/16 09/26/16 05:20 11:44 12:12 WBC RBC Hgb Hct MCV MCH MCHC RDW Plt Count Lymph % (Auto) [place] % (Auto) Lymph # [place] # Baso # Seg Neutrophils % Seg Neuts % (Manual) Lymphocytes % (Manual) Monocytes % (Manual) Eosinophils % (Manual) Basophils % (Manual) Nucleated RBC % Seg Neutrophils # Seg Neutrophils # Man Lymphocytes # (Manual) Monocytes # (Manual) Eosinophils # (Manual) Basophils # (Manual) PT INR Fibrinogen dRVVT Confirm Interp Factor V Activity POC ABG pH POC ABG pCO2 27.0 L POC ABG pO2 69 L ABG pO2 ABG HCO3 ABG Base Excess ABG Hemoglobin Oxyhemoglobin Sodium Potassium Chloride Carbon Dioxide BUN Creatinine Glucose POC Glucose 121 H 128 H Lactic Acid Calcium Ionized Calcium Phosphorus Magnesium Direct Bilirubin AST ALT Alkaline Phosphatase Lactate Dehydrogenase Troponin T C-Reactive Protein Total Protein Albumin Prealbumin Triglycerides Cholesterol LDL Cholesterol Direct HDL Cholesterol 25-OH Vitamin D Total PTH Intact Urine pH Urine WBC (Auto) Urine Creatinine Urine Total Protein Fluid Total Protein Vancomycin Trough Rheumatoid Factor Complement C4 Miscellaneous Test Crossmatch 09/26/16 09/26/16 09/27/16 18:31 23:40 08:20 WBC RBC Hgb Hct MCV MCH MCHC RDW Plt Count Lymph % (Auto) [place] % (Auto) Lymph # [place] # Baso # Seg Neutrophils % Seg Neuts % (Manual) Lymphocytes % (Manual) Monocytes % (Manual) Eosinophils % (Manual) Basophils % (Manual) Nucleated RBC % Seg Neutrophils # Seg Neutrophils # Man Lymphocytes # (Manual) Monocytes # (Manual) Eosinophils # (Manual) Basophils # (Manual) PT INR Fibrinogen dRVVT Confirm Interp Factor V Activity POC ABG pH POC ABG pCO2 POC ABG pO2 ABG pO2 ABG HCO3 ABG Base Excess ABG Hemoglobin Oxyhemoglobin Sodium Potassium Chloride Carbon Dioxide BUN Creatinine Glucose POC Glucose 120 H 133 H Lactic Acid 4.10 H* Calcium Ionized Calcium Phosphorus Magnesium Direct Bilirubin AST ALT Alkaline Phosphatase Lactate Dehydrogenase Troponin T C-Reactive Protein Total Protein Albumin Prealbumin Triglycerides Cholesterol LDL Cholesterol Direct HDL Cholesterol 25-OH Vitamin D Total PTH Intact Urine pH Urine WBC (Auto) Urine Creatinine Urine Total Protein Fluid Total Protein Vancomycin Trough Rheumatoid Factor Complement C4 Miscellaneous Test Crossmatch 09/27/16 09/27/16 09/27/16 11:23 15:00 18:15 WBC RBC Hgb Hct MCV MCH MCHC RDW Plt Count Lymph % (Auto) [place] % (Auto) Lymph # [place] # Baso # Seg Neutrophils % Seg Neuts % (Manual) Lymphocytes % (Manual) Monocytes % (Manual) Eosinophils % (Manual) Basophils % (Manual) Nucleated RBC % Seg Neutrophils # Seg Neutrophils # Man Lymphocytes # (Manual) Monocytes # (Manual) Eosinophils # (Manual) Basophils # (Manual) PT INR Fibrinogen dRVVT Confirm Interp Factor V Activity POC ABG pH 7.459 H POC ABG pCO2 27.1 L POC ABG pO2 140 H ABG pO2 ABG HCO3 ABG Base Excess ABG Hemoglobin Oxyhemoglobin Sodium Potassium Chloride Carbon Dioxide BUN Creatinine Glucose POC Glucose 114 H 127 H Lactic Acid Calcium Ionized Calcium Phosphorus Magnesium Direct Bilirubin AST ALT Alkaline Phosphatase Lactate Dehydrogenase Troponin T C-Reactive Protein Total Protein Albumin Prealbumin Triglycerides Cholesterol LDL Cholesterol Direct HDL Cholesterol 25-OH Vitamin D Total PTH Intact Urine pH Urine WBC (Auto) Urine Creatinine Urine Total Protein Fluid Total Protein Vancomycin Trough Rheumatoid Factor Complement C4 Miscellaneous Test Crossmatch 09/27/16 09/27/16 09/28/16 Unknown Unknown 03:45 WBC RBC 2.49 L Hgb 6.8 L Hct 20.7 L MCV MCH 27 L MCHC RDW 22.1 H Plt Count Lymph % (Auto) [place] % (Auto) Lymph # [place] # Baso # Seg Neutrophils % Seg Neuts % (Manual) 32.0 L Lymphocytes % (Manual) 12.0 L Monocytes % (Manual) 11.0 H Eosinophils % (Manual) 10.0 H Basophils % (Manual) Nucleated RBC % Seg Neutrophils # Seg Neutrophils # Man Lymphocytes # (Manual) 1.0 L Monocytes # (Manual) 0.9 H Eosinophils # (Manual) 0.8 H Basophils # (Manual) PT INR Fibrinogen dRVVT Confirm Interp Factor V Activity POC ABG pH POC ABG pCO2 POC ABG pO2 ABG pO2 ABG HCO3 ABG Base Excess ABG Hemoglobin Oxyhemoglobin Sodium 135 L 135 L Potassium 3.5 L Chloride 93.6 L 94.4 L Carbon Dioxide 17 L 21 L BUN 45 H 28 H Creatinine 3.3 H 2.5 H Glucose 106 H POC Glucose Lactic Acid Calcium 7.3 L 7.1 L Ionized Calcium Phosphorus Magnesium Direct Bilirubin AST ALT Alkaline Phosphatase Lactate Dehydrogenase Troponin T C-Reactive Protein Total Protein Albumin Prealbumin Triglycerides Cholesterol LDL Cholesterol Direct HDL Cholesterol 25-OH Vitamin D Total PTH Intact Urine pH Urine WBC (Auto) Urine Creatinine Urine Total Protein Fluid Total Protein Vancomycin Trough Rheumatoid Factor Complement C4 Miscellaneous Test Crossmatch 09/28/16 09/28/16 09/28/16 03:45 07:25 11:58 WBC 13.3 H RBC 3.01 L Hgb 8.4 L Hct 25.0 L MCV MCH MCHC RDW 20.5 H Plt Count 128 L Lymph % (Auto) [place] % (Auto) Lymph # [place] # Baso # Seg Neutrophils % Seg Neuts % (Manual) Lymphocytes % (Manual) 7.0 L Monocytes % (Manual) Eosinophils % (Manual) 6.0 H Basophils % (Manual) Nucleated RBC % Seg Neutrophils # Seg Neutrophils # Man Lymphocytes # (Manual) 0.9 L Monocytes # (Manual) Eosinophils # (Manual) 0.8 H Basophils # (Manual) PT INR Fibrinogen dRVVT Confirm Interp Factor V Activity POC ABG pH POC ABG pCO2 POC ABG pO2 ABG pO2 ABG HCO3 ABG Base Excess ABG Hemoglobin Oxyhemoglobin Sodium Potassium Chloride Carbon Dioxide BUN Creatinine Glucose POC Glucose 121 H Lactic Acid 4.50 H* Calcium Ionized Calcium Phosphorus Magnesium Direct Bilirubin AST ALT Alkaline Phosphatase Lactate Dehydrogenase Troponin T C-Reactive Protein Total Protein Albumin Prealbumin Triglycerides Cholesterol LDL Cholesterol Direct HDL Cholesterol 25-OH Vitamin D Total PTH Intact Urine pH Urine WBC (Auto) Urine Creatinine Urine Total Protein Fluid Total Protein Vancomycin Trough Rheumatoid Factor Complement C4 Miscellaneous Test Crossmatch 09/29/16 09/29/16 09/29/16 06:45 06:45 06:45 WBC 14.9 H RBC 2.74 L Hgb 7.6 L Hct 23.2 L MCV MCH MCHC RDW 20.5 H Plt Count 81 L Lymph % (Auto) [place] % (Auto) Lymph # [place] # Baso # Seg Neutrophils % Seg Neuts % (Manual) 81.0 H Lymphocytes % (Manual) 4.0 L Monocytes % (Manual) Eosinophils % (Manual) Basophils % (Manual) Nucleated RBC % Seg Neutrophils # Seg Neutrophils # Man 12.1 H Lymphocytes # (Manual) 0.6 L Monocytes # (Manual) Eosinophils # (Manual) Basophils # (Manual) PT INR Fibrinogen dRVVT Confirm Interp Factor V Activity POC ABG pH POC ABG pCO2 POC ABG pO2 ABG pO2 ABG HCO3 ABG Base Excess ABG Hemoglobin Oxyhemoglobin Sodium 133 L Potassium 3.4 L Chloride 92.5 L Carbon Dioxide 21 L BUN 33 H Creatinine 3.0 H Glucose POC Glucose Lactic Acid Calcium 6.6 L Ionized Calcium Phosphorus Magnesium 1.40 L Direct Bilirubin 0.9 H AST ALT Alkaline Phosphatase Lactate Dehydrogenase Troponin T C-Reactive Protein Total Protein 4.3 L Albumin 1.3 L Prealbumin Triglycerides Cholesterol LDL Cholesterol Direct HDL Cholesterol 25-OH Vitamin D Total PTH Intact Urine pH Urine WBC (Auto) Urine Creatinine Urine Total Protein Fluid Total Protein Vancomycin Trough Rheumatoid Factor Complement C4 Miscellaneous Test Crossmatch 09/29/16 09/29/16 09/30/16 17:52 20:12 00:07 WBC RBC Hgb Hct MCV MCH MCHC RDW Plt Count Lymph % (Auto) [place] % (Auto) Lymph # [place] # Baso # Seg Neutrophils % Seg Neuts % (Manual) Lymphocytes % (Manual) Monocytes % (Manual) Eosinophils % (Manual) Basophils % (Manual) Nucleated RBC % Seg Neutrophils # Seg Neutrophils # Man Lymphocytes # (Manual) Monocytes # (Manual) Eosinophils # (Manual) Basophils # (Manual) PT INR Fibrinogen dRVVT Confirm Interp Factor V Activity POC ABG pH POC ABG pCO2 POC ABG pO2 ABG pO2 ABG HCO3 ABG Base Excess ABG Hemoglobin Oxyhemoglobin Sodium Potassium Chloride Carbon Dioxide BUN Creatinine Glucose POC Glucose 50 L 51 L Lactic Acid Calcium Ionized Calcium Phosphorus Magnesium Direct Bilirubin AST ALT Alkaline Phosphatase Lactate Dehydrogenase Troponin T 0.204 H* C-Reactive Protein Total Protein Albumin Prealbumin Triglycerides Cholesterol 31 L LDL Cholesterol Direct 4 L HDL Cholesterol 3 L 25-OH Vitamin D Total PTH Intact Urine pH Urine WBC (Auto) Urine Creatinine Urine Total Protein Fluid Total Protein Vancomycin Trough Rheumatoid Factor Complement C4 Miscellaneous Test Crossmatch 09/30/16 09/30/16 09/30/16 01:30 05:15 06:10 WBC RBC Hgb Hct MCV MCH MCHC RDW Plt Count Lymph % (Auto) [place] % (Auto) Lymph # [place] # Baso # Seg Neutrophils % Seg Neuts % (Manual) Lymphocytes % (Manual) Monocytes % (Manual) Eosinophils % (Manual) Basophils % (Manual) Nucleated RBC % Seg Neutrophils # Seg Neutrophils # Man Lymphocytes # (Manual) Monocytes # (Manual) Eosinophils # (Manual) Basophils # (Manual) PT INR Fibrinogen dRVVT Confirm Interp Factor V Activity POC ABG pH POC ABG pCO2 POC ABG pO2 ABG pO2 ABG HCO3 ABG Base Excess ABG Hemoglobin Oxyhemoglobin Sodium 133 L Potassium 3.2 L Chloride 93.2 L Carbon Dioxide 19 L BUN 36 H Creatinine 3.2 H Glucose 104 H POC Glucose 167 H 146 H Lactic Acid Calcium 6.4 L Ionized Calcium Phosphorus Magnesium 1.60 L Direct Bilirubin AST ALT Alkaline Phosphatase Lactate Dehydrogenase Troponin T C-Reactive Protein Total Protein Albumin Prealbumin Triglycerides Cholesterol LDL Cholesterol Direct HDL Cholesterol 25-OH Vitamin D Total PTH Intact Urine pH Urine WBC (Auto) Urine Creatinine Urine Total Protein Fluid Total Protein Vancomycin Trough Rheumatoid Factor Complement C4 Miscellaneous Test Crossmatch 09/30/16 09/30/16 09/30/16 11:26 13:39 18:38 WBC RBC Hgb Hct MCV MCH MCHC RDW Plt Count Lymph % (Auto) [place] % (Auto) Lymph # [place] # Baso # Seg Neutrophils % Seg Neuts % (Manual) Lymphocytes % (Manual) Monocytes % (Manual) Eosinophils % (Manual) Basophils % (Manual) Nucleated RBC % Seg Neutrophils # Seg Neutrophils # Man Lymphocytes # (Manual) Monocytes # (Manual) Eosinophils # (Manual) Basophils # (Manual) PT INR Fibrinogen dRVVT Confirm Interp Factor V Activity POC ABG pH 7.479 H POC ABG pCO2 29.8 L POC ABG pO2 117 H ABG pO2 ABG HCO3 ABG Base Excess ABG Hemoglobin Oxyhemoglobin Sodium Potassium Chloride Carbon Dioxide BUN Creatinine Glucose POC Glucose 140 H 122 H Lactic Acid Calcium Ionized Calcium Phosphorus Magnesium Direct Bilirubin AST ALT Alkaline Phosphatase Lactate Dehydrogenase Troponin T C-Reactive Protein Total Protein Albumin Prealbumin Triglycerides Cholesterol LDL Cholesterol Direct HDL Cholesterol 25-OH Vitamin D Total PTH Intact Urine pH Urine WBC (Auto) Urine Creatinine Urine Total Protein Fluid Total Protein Vancomycin Trough Rheumatoid Factor Complement C4 Miscellaneous Test Crossmatch 10/01/16 10/01/16 10/01/16 06:00 06:00 12:37 WBC 12.6 H RBC 2.75 L Hgb 7.3 L Hct 23.3 L MCV MCH 27 L MCHC RDW 20.6 H Plt Count 72 L Lymph % (Auto) [place] % (Auto) Lymph # [place] # Baso # Seg Neutrophils % Seg Neuts % (Manual) 31.0 L Lymphocytes % (Manual) 8.0 L Monocytes % (Manual) Eosinophils % (Manual) Basophils % (Manual) Nucleated RBC % 3.0 H Seg Neutrophils # Seg Neutrophils # Man Lymphocytes # (Manual) 1.0 L Monocytes # (Manual) Eosinophils # (Manual) Basophils # (Manual) PT INR Fibrinogen dRVVT Confirm Interp Factor V Activity POC ABG pH POC ABG pCO2 POC ABG pO2 ABG pO2 ABG HCO3 ABG Base Excess ABG Hemoglobin Oxyhemoglobin Sodium 127 L Potassium Chloride 86.8 L Carbon Dioxide 20 L BUN 42 H Creatinine 3.5 H Glucose POC Glucose 65 L Lactic Acid Calcium 7.0 L Ionized Calcium Phosphorus Magnesium Direct Bilirubin AST ALT Alkaline Phosphatase Lactate Dehydrogenase Troponin T C-Reactive Protein Total Protein Albumin Prealbumin Triglycerides Cholesterol LDL Cholesterol Direct HDL Cholesterol 25-OH Vitamin D Total PTH Intact Urine pH Urine WBC (Auto) Urine Creatinine Urine Total Protein Fluid Total Protein Vancomycin Trough Rheumatoid Factor Complement C4 Miscellaneous Test Crossmatch 10/01/16 10/01/16 10/02/16 17:39 23:32 00:59 WBC RBC Hgb Hct MCV MCH MCHC RDW Plt Count Lymph % (Auto) [place] % (Auto) Lymph # [place] # Baso # Seg Neutrophils % Seg Neuts % (Manual) Lymphocytes % (Manual) Monocytes % (Manual) Eosinophils % (Manual) Basophils % (Manual) Nucleated RBC % Seg Neutrophils # Seg Neutrophils # Man Lymphocytes # (Manual) Monocytes # (Manual) Eosinophils # (Manual) Basophils # (Manual) PT INR Fibrinogen dRVVT Confirm Interp Factor V Activity POC ABG pH POC ABG pCO2 POC ABG pO2 ABG pO2 ABG HCO3 ABG Base Excess ABG Hemoglobin Oxyhemoglobin Sodium Potassium Chloride Carbon Dioxide BUN Creatinine Glucose POC Glucose 107 H 52 L 145 H Lactic Acid Calcium Ionized Calcium Phosphorus Magnesium Direct Bilirubin AST ALT Alkaline Phosphatase Lactate Dehydrogenase Troponin T C-Reactive Protein Total Protein Albumin Prealbumin Triglycerides Cholesterol LDL Cholesterol Direct HDL Cholesterol 25-OH Vitamin D Total PTH Intact Urine pH Urine WBC (Auto) Urine Creatinine Urine Total Protein Fluid Total Protein Vancomycin Trough Rheumatoid Factor Complement C4 Miscellaneous Test Crossmatch 10/02/16 10/02/16 10/02/16 10:30 10:50 10:50 WBC 14.7 H RBC 2.76 L Hgb 7.4 L Hct 23.6 L MCV MCH 27 L MCHC RDW 20.2 H Plt Count 79 L Lymph % (Auto) [place] % (Auto) Lymph # [place] # Baso # Seg Neutrophils % Seg Neuts % (Manual) 86.0 H Lymphocytes % (Manual) 6.0 L Monocytes % (Manual) Eosinophils % (Manual) Basophils % (Manual) Nucleated RBC % Seg Neutrophils # Seg Neutrophils # Man 12.6 H Lymphocytes # (Manual) 0.9 L Monocytes # (Manual) Eosinophils # (Manual) Basophils # (Manual) PT INR Fibrinogen dRVVT Confirm Interp Factor V Activity POC ABG pH 7.486 H POC ABG pCO2 30.1 L POC ABG pO2 108 H ABG pO2 ABG HCO3 ABG Base Excess ABG Hemoglobin Oxyhemoglobin Sodium 131 L Potassium 3.4 L Chloride 89.9 L Carbon Dioxide BUN 26 H Creatinine 2.6 H Glucose POC Glucose Lactic Acid Calcium 7.0 L Ionized Calcium Phosphorus Magnesium Direct Bilirubin AST ALT Alkaline Phosphatase Lactate Dehydrogenase Troponin T C-Reactive Protein Total Protein Albumin Prealbumin Triglycerides Cholesterol LDL Cholesterol Direct HDL Cholesterol 25-OH Vitamin D Total PTH Intact Urine pH Urine WBC (Auto) Urine Creatinine Urine Total Protein Fluid Total Protein Vancomycin Trough Rheumatoid Factor Complement C4 Miscellaneous Test Crossmatch 10/02/16 10/03/16 10/03/16 23:45 00:45 05:10 WBC 12.9 H RBC 2.77 L Hgb 7.6 L Hct 23.7 L MCV MCH 27 L MCHC RDW 19.7 H Plt Count 89 L Lymph % (Auto) [place] % (Auto) Lymph # [place] # Baso # Seg Neutrophils % Seg Neuts % (Manual) Lymphocytes % (Manual) 8.0 L Monocytes % (Manual) Eosinophils % (Manual) Basophils % (Manual) Nucleated RBC % Seg Neutrophils # 11.9 H Seg Neutrophils # Man Lymphocytes # (Manual) 1.0 L Monocytes # (Manual) Eosinophils # (Manual) Basophils # (Manual) PT INR Fibrinogen dRVVT Confirm Interp Factor V Activity POC ABG pH POC ABG pCO2 POC ABG pO2 ABG pO2 ABG HCO3 ABG Base Excess ABG Hemoglobin Oxyhemoglobin Sodium Potassium Chloride Carbon Dioxide BUN Creatinine Glucose POC Glucose 55 L 199 H Lactic Acid Calcium Ionized Calcium Phosphorus Magnesium Direct Bilirubin AST ALT Alkaline Phosphatase Lactate Dehydrogenase Troponin T C-Reactive Protein Total Protein Albumin Prealbumin Triglycerides Cholesterol LDL Cholesterol Direct HDL Cholesterol 25-OH Vitamin D Total PTH Intact Urine pH Urine WBC (Auto) Urine Creatinine Urine Total Protein Fluid Total Protein Vancomycin Trough Rheumatoid Factor Complement C4 Miscellaneous Test Crossmatch 10/03/16 10/03/16 10/03/16 05:10 12:14 13:18 WBC RBC Hgb Hct MCV MCH MCHC RDW Plt Count Lymph % (Auto) [place] % (Auto) Lymph # [place] # Baso # Seg Neutrophils % Seg Neuts % (Manual) Lymphocytes % (Manual) Monocytes % (Manual) Eosinophils % (Manual) Basophils % (Manual) Nucleated RBC % Seg Neutrophils # Seg Neutrophils # Man Lymphocytes # (Manual) Monocytes # (Manual) Eosinophils # (Manual) Basophils # (Manual) PT INR Fibrinogen dRVVT Confirm Interp Factor V Activity POC ABG pH POC ABG pCO2 POC ABG pO2 ABG pO2 ABG HCO3 ABG Base Excess ABG Hemoglobin Oxyhemoglobin Sodium 129 L Potassium 3.3 L Chloride 88.8 L Carbon Dioxide 20 L BUN 29 H Creatinine 2.8 H Glucose POC Glucose 68 L 127 H Lactic Acid Calcium 7.2 L Ionized Calcium Phosphorus Magnesium Direct Bilirubin AST ALT Alkaline Phosphatase Lactate Dehydrogenase Troponin T C-Reactive Protein Total Protein Albumin Prealbumin Triglycerides Cholesterol LDL Cholesterol Direct HDL Cholesterol 25-OH Vitamin D Total PTH Intact Urine pH Urine WBC (Auto) Urine Creatinine Urine Total Protein Fluid Total Protein Vancomycin Trough Rheumatoid Factor Complement C4 Miscellaneous Test Crossmatch 10/03/16 10/03/16 10/03/16 14:42 18:21 19:09 WBC RBC Hgb Hct MCV MCH MCHC RDW Plt Count Lymph % (Auto) [place] % (Auto) Lymph # [place] # Baso # Seg Neutrophils % Seg Neuts % (Manual) Lymphocytes % (Manual) Monocytes % (Manual) Eosinophils % (Manual) Basophils % (Manual) Nucleated RBC % Seg Neutrophils # Seg Neutrophils # Man Lymphocytes # (Manual) Monocytes # (Manual) Eosinophils # (Manual) Basophils # (Manual) PT INR Fibrinogen dRVVT Confirm Interp Factor V Activity POC ABG pH 7.499 H POC ABG pCO2 28.4 L POC ABG pO2 44 L ABG pO2 ABG HCO3 ABG Base Excess ABG Hemoglobin Oxyhemoglobin Sodium Potassium Chloride Carbon Dioxide BUN Creatinine Glucose POC Glucose 64 L 205 H Lactic Acid Calcium Ionized Calcium Phosphorus Magnesium Direct Bilirubin AST ALT Alkaline Phosphatase Lactate Dehydrogenase Troponin T C-Reactive Protein Total Protein Albumin Prealbumin Triglycerides Cholesterol LDL Cholesterol Direct HDL Cholesterol 25-OH Vitamin D Total PTH Intact Urine pH Urine WBC (Auto) Urine Creatinine Urine Total Protein Fluid Total Protein Vancomycin Trough Rheumatoid Factor Complement C4 Miscellaneous Test Crossmatch 10/03/16 10/04/16 10/04/16 23:33 04:18 06:30 WBC RBC 2.54 L Hgb 7.1 L Hct 21.7 L MCV MCH MCHC RDW 19.5 H Plt Count 76 L Lymph % (Auto) [place] % (Auto) Lymph # [place] # Baso # Seg Neutrophils % Seg Neuts % (Manual) 88.0 H Lymphocytes % (Manual) 6.0 L Monocytes % (Manual) Eosinophils % (Manual) Basophils % (Manual) Nucleated RBC % Seg Neutrophils # Seg Neutrophils # Man 8.8 H Lymphocytes # (Manual) 0.6 L Monocytes # (Manual) Eosinophils # (Manual) Basophils # (Manual) PT INR Fibrinogen dRVVT Confirm Interp Factor V Activity POC ABG pH 7.461 H POC ABG pCO2 33.6 L POC ABG pO2 211 H ABG pO2 ABG HCO3 ABG Base Excess ABG Hemoglobin Oxyhemoglobin Sodium Potassium Chloride Carbon Dioxide BUN Creatinine Glucose POC Glucose 136 H Lactic Acid Calcium Ionized Calcium Phosphorus Magnesium Direct Bilirubin AST ALT Alkaline Phosphatase Lactate Dehydrogenase Troponin T C-Reactive Protein Total Protein Albumin Prealbumin Triglycerides Cholesterol LDL Cholesterol Direct HDL Cholesterol 25-OH Vitamin D Total PTH Intact Urine pH Urine WBC (Auto) Urine Creatinine Urine Total Protein Fluid Total Protein Vancomycin Trough Rheumatoid Factor Complement C4 Miscellaneous Test Crossmatch 10/04/16 10/04/16 10/04/16 06:30 11:45 17:54 WBC RBC Hgb Hct MCV MCH MCHC RDW Plt Count Lymph % (Auto) [place] % (Auto) Lymph # [place] # Baso # Seg Neutrophils % Seg Neuts % (Manual) Lymphocytes % (Manual) Monocytes % (Manual) Eosinophils % (Manual) Basophils % (Manual) Nucleated RBC % Seg Neutrophils # Seg Neutrophils # Man Lymphocytes # (Manual) Monocytes # (Manual) Eosinophils # (Manual) Basophils # (Manual) PT INR Fibrinogen dRVVT Confirm Interp Factor V Activity POC ABG pH POC ABG pCO2 POC ABG pO2 ABG pO2 ABG HCO3 ABG Base Excess ABG Hemoglobin Oxyhemoglobin Sodium 128 L Potassium Chloride 87.4 L Carbon Dioxide 20 L BUN 34 H Creatinine 2.9 H Glucose 127 H POC Glucose 158 H 160 H Lactic Acid Calcium 7.4 L Ionized Calcium Phosphorus Magnesium Direct Bilirubin AST ALT Alkaline Phosphatase Lactate Dehydrogenase Troponin T C-Reactive Protein Total Protein Albumin Prealbumin Triglycerides Cholesterol LDL Cholesterol Direct HDL Cholesterol 25-OH Vitamin D Total PTH Intact Urine pH Urine WBC (Auto) Urine Creatinine Urine Total Protein Fluid Total Protein Vancomycin Trough Rheumatoid Factor Complement C4 Miscellaneous Test Crossmatch 10/04/16 10/05/16 10/05/16 23:25 04:30 05:00 WBC RBC 2.64 L Hgb 7.5 L Hct 22.6 L MCV MCH MCHC RDW 19.3 H Plt Count 80 L Lymph % (Auto) [place] % (Auto) Lymph # [place] # Baso # Seg Neutrophils % Seg Neuts % (Manual) Lymphocytes % (Manual) 12.0 L Monocytes % (Manual) Eosinophils % (Manual) Basophils % (Manual) Nucleated RBC % Seg Neutrophils # Seg Neutrophils # Man Lymphocytes # (Manual) Monocytes # (Manual) Eosinophils # (Manual) Basophils # (Manual) PT INR Fibrinogen dRVVT Confirm Interp Factor V Activity POC ABG pH 7.475 H POC ABG pCO2 33.3 L POC ABG pO2 140 H ABG pO2 ABG HCO3 ABG Base Excess ABG Hemoglobin Oxyhemoglobin Sodium Potassium Chloride Carbon Dioxide BUN Creatinine Glucose POC Glucose 141 H Lactic Acid Calcium Ionized Calcium Phosphorus Magnesium Direct Bilirubin AST ALT Alkaline Phosphatase Lactate Dehydrogenase Troponin T C-Reactive Protein Total Protein Albumin Prealbumin Triglycerides Cholesterol LDL Cholesterol Direct HDL Cholesterol 25-OH Vitamin D Total PTH Intact Urine pH Urine WBC (Auto) Urine Creatinine Urine Total Protein Fluid Total Protein Vancomycin Trough Rheumatoid Factor Complement C4 Miscellaneous Test Crossmatch 10/05/16 10/05/16 10/05/16 05:00 05:09 12:58 WBC RBC Hgb Hct MCV MCH MCHC RDW Plt Count Lymph % (Auto) [place] % (Auto) Lymph # [place] # Baso # Seg Neutrophils % Seg Neuts % (Manual) Lymphocytes % (Manual) Monocytes % (Manual) Eosinophils % (Manual) Basophils % (Manual) Nucleated RBC % Seg Neutrophils # Seg Neutrophils # Man Lymphocytes # (Manual) Monocytes # (Manual) Eosinophils # (Manual) Basophils # (Manual) PT INR Fibrinogen dRVVT Confirm Interp Factor V Activity POC ABG pH POC ABG pCO2 POC ABG pO2 ABG pO2 ABG HCO3 ABG Base Excess ABG Hemoglobin Oxyhemoglobin Sodium 131 L Potassium Chloride 94.0 L Carbon Dioxide 20 L BUN 22 H Creatinine 2.0 H Glucose 123 H POC Glucose 166 H 179 H Lactic Acid Calcium 7.7 L Ionized Calcium Phosphorus 2.20 L D Magnesium Direct Bilirubin AST ALT Alkaline Phosphatase Lactate Dehydrogenase Troponin T C-Reactive Protein Total Protein Albumin Prealbumin Triglycerides Cholesterol LDL Cholesterol Direct HDL Cholesterol 25-OH Vitamin D Total PTH Intact Urine pH Urine WBC (Auto) Urine Creatinine Urine Total Protein Fluid Total Protein Vancomycin Trough Rheumatoid Factor Complement C4 Miscellaneous Test Crossmatch 10/05/16 10/05/16 10/05/16 15:50 18:53 23:12 WBC RBC Hgb Hct MCV MCH MCHC RDW Plt Count Lymph % (Auto) [place] % (Auto) Lymph # [place] # Baso # Seg Neutrophils % Seg Neuts % (Manual) Lymphocytes % (Manual) Monocytes % (Manual) Eosinophils % (Manual) Basophils % (Manual) Nucleated RBC % Seg Neutrophils # Seg Neutrophils # Man Lymphocytes # (Manual) Monocytes # (Manual) Eosinophils # (Manual) Basophils # (Manual) PT INR Fibrinogen dRVVT Confirm Interp Factor V Activity POC ABG pH POC ABG pCO2 POC ABG pO2 ABG pO2 ABG HCO3 ABG Base Excess ABG Hemoglobin Oxyhemoglobin Sodium Potassium Chloride Carbon Dioxide BUN Creatinine Glucose POC Glucose 150 H 164 H Lactic Acid Calcium Ionized Calcium Phosphorus Magnesium Direct Bilirubin AST ALT Alkaline Phosphatase Lactate Dehydrogenase Troponin T C-Reactive Protein Total Protein Albumin Prealbumin Triglycerides Cholesterol LDL Cholesterol Direct HDL Cholesterol 25-OH Vitamin D Total PTH Intact Urine pH Urine WBC (Auto) Urine Creatinine Urine Total Protein Fluid Total Protein Vancomycin Trough Rheumatoid Factor Complement C4 Miscellaneous Test Crossmatch See Detail 10/06/16 10/06/16 10/06/16 03:50 03:50 04:53 WBC RBC 3.00 L Hgb 8.6 L Hct 25.8 L MCV MCH MCHC RDW 17.9 H Plt Count 65 L Lymph % (Auto) [place] % (Auto) Lymph # [place] # Baso # Seg Neutrophils % Seg Neuts % (Manual) 30.0 L Lymphocytes % (Manual) 5.0 L Monocytes % (Manual) Eosinophils % (Manual) Basophils % (Manual) Nucleated RBC % Seg Neutrophils # Seg Neutrophils # Man Lymphocytes # (Manual) 0.4 L Monocytes # (Manual) Eosinophils # (Manual) Basophils # (Manual) PT INR Fibrinogen dRVVT Confirm Interp Factor V Activity POC ABG pH 7.310 L POC ABG pCO2 49.0 H POC ABG pO2 ABG pO2 ABG HCO3 ABG Base Excess ABG Hemoglobin Oxyhemoglobin Sodium 133 L Potassium Chloride 95.9 L Carbon Dioxide BUN 26 H Creatinine 2.0 H Glucose 116 H POC Glucose Lactic Acid Calcium 7.8 L Ionized Calcium Phosphorus Magnesium Direct Bilirubin AST ALT Alkaline Phosphatase Lactate Dehydrogenase Troponin T C-Reactive Protein Total Protein Albumin Prealbumin Triglycerides Cholesterol LDL Cholesterol Direct HDL Cholesterol 25-OH Vitamin D Total PTH Intact Urine pH Urine WBC (Auto) Urine Creatinine Urine Total Protein Fluid Total Protein Vancomycin Trough Rheumatoid Factor Complement C4 Miscellaneous Test Crossmatch 10/06/16 10/06/16 10/06/16 05:23 11:52 18:34 WBC RBC Hgb Hct MCV MCH MCHC RDW Plt Count Lymph % (Auto) [place] % (Auto) Lymph # [place] # Baso # Seg Neutrophils % Seg Neuts % (Manual) Lymphocytes % (Manual) Monocytes % (Manual) Eosinophils % (Manual) Basophils % (Manual) Nucleated RBC % Seg Neutrophils # Seg Neutrophils # Man Lymphocytes # (Manual) Monocytes # (Manual) Eosinophils # (Manual) Basophils # (Manual) PT INR Fibrinogen dRVVT Confirm Interp Factor V Activity POC ABG pH POC ABG pCO2 POC ABG pO2 ABG pO2 ABG HCO3 ABG Base Excess ABG Hemoglobin Oxyhemoglobin Sodium Potassium Chloride Carbon Dioxide BUN Creatinine Glucose POC Glucose 126 H 116 H 129 H Lactic Acid Calcium Ionized Calcium Phosphorus Magnesium Direct Bilirubin AST ALT Alkaline Phosphatase Lactate Dehydrogenase Troponin T C-Reactive Protein Total Protein Albumin Prealbumin Triglycerides Cholesterol LDL Cholesterol Direct HDL Cholesterol 25-OH Vitamin D Total PTH Intact Urine pH Urine WBC (Auto) Urine Creatinine Urine Total Protein Fluid Total Protein Vancomycin Trough Rheumatoid Factor Complement C4 Miscellaneous Test Crossmatch 10/07/16 10/07/16 10/07/16 03:45 05:00 10:00 WBC 17.0 H RBC 2.68 L Hgb 7.3 L Hct 25.3 L MCV MCH 27 L MCHC 29 L RDW 19.6 H Plt Count 74 L Lymph % (Auto) [place] % (Auto) Lymph # [place] # Baso # Seg Neutrophils % Seg Neuts % (Manual) Lymphocytes % (Manual) 12.0 L Monocytes % (Manual) Eosinophils % (Manual) Basophils % (Manual) Nucleated RBC % 4.0 H Seg Neutrophils # Seg Neutrophils # Man 10.7 H Lymphocytes # (Manual) Monocytes # (Manual) Eosinophils # (Manual) Basophils # (Manual) PT INR Fibrinogen dRVVT Confirm Interp Factor V Activity POC ABG pH POC ABG pCO2 POC ABG pO2 ABG pO2 ABG HCO3 ABG Base Excess ABG Hemoglobin Oxyhemoglobin Sodium 130 L Potassium 3.2 L Chloride 93.9 L Carbon Dioxide 20 L BUN 44 H Creatinine 2.7 H Glucose 129 H POC Glucose Lactic Acid Calcium 7.4 L Ionized Calcium Phosphorus Magnesium Direct Bilirubin AST ALT 6 L Alkaline Phosphatase 195 H Lactate Dehydrogenase Troponin T C-Reactive Protein Total Protein 4.9 L Albumin 1.0 L Prealbumin Triglycerides Cholesterol LDL Cholesterol Direct HDL Cholesterol 25-OH Vitamin D Total PTH Intact Urine pH Urine WBC (Auto) Urine Creatinine Urine Total Protein Fluid Total Protein Vancomycin Trough Rheumatoid Factor Complement C4 Miscellaneous Test Flexitest 1 H Crossmatch 10/07/16 10/07/16 10/07/16 10:00 11:24 18:10 WBC RBC Hgb Hct MCV MCH MCHC RDW Plt Count Lymph % (Auto) [place] % (Auto) Lymph # [place] # Baso # Seg Neutrophils % Seg Neuts % (Manual) Lymphocytes % (Manual) Monocytes % (Manual) Eosinophils % (Manual) Basophils % (Manual) Nucleated RBC % Seg Neutrophils # Seg Neutrophils # Man Lymphocytes # (Manual) Monocytes # (Manual) Eosinophils # (Manual) Basophils # (Manual) PT INR Fibrinogen dRVVT Confirm Interp Factor V Activity POC ABG pH POC ABG pCO2 POC ABG pO2 ABG pO2 ABG HCO3 ABG Base Excess ABG Hemoglobin Oxyhemoglobin Sodium Potassium Chloride Carbon Dioxide BUN Creatinine Glucose POC Glucose 116 H 130 H Lactic Acid Calcium Ionized Calcium Phosphorus Magnesium Direct Bilirubin AST ALT Alkaline Phosphatase Lactate Dehydrogenase Troponin T C-Reactive Protein 19.40 H Total Protein Albumin Prealbumin Triglycerides Cholesterol LDL Cholesterol Direct HDL Cholesterol 25-OH Vitamin D Total PTH Intact Urine pH Urine WBC (Auto) Urine Creatinine Urine Total Protein Fluid Total Protein Vancomycin Trough Rheumatoid Factor Complement C4 Miscellaneous Test Crossmatch 10/07/16 10/08/16 10/08/16 18:30 00:00 04:00 WBC RBC Hgb Hct MCV MCH MCHC RDW Plt Count Lymph % (Auto) [place] % (Auto) Lymph # [place] # Baso # Seg Neutrophils % Seg Neuts % (Manual) Lymphocytes % (Manual) Monocytes % (Manual) Eosinophils % (Manual) Basophils % (Manual) Nucleated RBC % Seg Neutrophils # Seg Neutrophils # Man Lymphocytes # (Manual) Monocytes # (Manual) Eosinophils # (Manual) Basophils # (Manual) PT INR Fibrinogen dRVVT Confirm Interp Factor V Activity POC ABG pH POC ABG pCO2 POC ABG pO2 ABG pO2 ABG HCO3 ABG Base Excess ABG Hemoglobin Oxyhemoglobin Sodium 132 L Potassium 3.3 L Chloride 93.6 L Carbon Dioxide 17 L BUN 59 H Creatinine 2.7 H Glucose 121 H POC Glucose 122 H Lactic Acid Calcium 7.6 L Ionized Calcium Phosphorus Magnesium Direct Bilirubin AST ALT Alkaline Phosphatase Lactate Dehydrogenase Troponin T C-Reactive Protein Total Protein Albumin Prealbumin Triglycerides Cholesterol LDL Cholesterol Direct HDL Cholesterol 25-OH Vitamin D Total PTH Intact Urine pH Urine WBC (Auto) > 182.0 H Urine Creatinine Urine Total Protein Fluid Total Protein Vancomycin Trough Rheumatoid Factor Complement C4 Miscellaneous Test Crossmatch 10/08/16 10/08/16 10/08/16 04:30 05:30 11:51 WBC RBC 5.15 H Hgb 14.4 H D Hct 44.5 H D MCV MCH MCHC RDW 19.5 H Plt Count 56 L Lymph % (Auto) [place] % (Auto) Lymph # [place] # Baso # Seg Neutrophils % Seg Neuts % (Manual) 24.0 L Lymphocytes % (Manual) 8.0 L Monocytes % (Manual) Eosinophils % (Manual) Basophils % (Manual) Nucleated RBC % 9.0 H Seg Neutrophils # Seg Neutrophils # Man Lymphocytes # (Manual) 0.7 L Monocytes # (Manual) Eosinophils # (Manual) Basophils # (Manual) PT INR Fibrinogen dRVVT Confirm Interp Factor V Activity POC ABG pH POC ABG pCO2 POC ABG pO2 ABG pO2 ABG HCO3 ABG Base Excess ABG Hemoglobin Oxyhemoglobin Sodium Potassium Chloride Carbon Dioxide BUN Creatinine Glucose POC Glucose 125 H 150 H Lactic Acid Calcium Ionized Calcium Phosphorus Magnesium Direct Bilirubin AST ALT Alkaline Phosphatase Lactate Dehydrogenase Troponin T C-Reactive Protein Total Protein Albumin Prealbumin Triglycerides Cholesterol LDL Cholesterol Direct HDL Cholesterol 25-OH Vitamin D Total PTH Intact Urine pH Urine WBC (Auto) Urine Creatinine Urine Total Protein Fluid Total Protein Vancomycin Trough Rheumatoid Factor Complement C4 Miscellaneous Test Crossmatch 10/08/16 10/08/16 10/08/16 12:49 17:07 19:30 WBC RBC Hgb 7.1 L D Hct 22.4 L D MCV MCH MCHC RDW Plt Count Lymph % (Auto) [place] % (Auto) Lymph # [place] # Baso # Seg Neutrophils % Seg Neuts % (Manual) Lymphocytes % (Manual) Monocytes % (Manual) Eosinophils % (Manual) Basophils % (Manual) Nucleated RBC % Seg Neutrophils # Seg Neutrophils # Man Lymphocytes # (Manual) Monocytes # (Manual) Eosinophils # (Manual) Basophils # (Manual) PT INR Fibrinogen dRVVT Confirm Interp Factor V Activity POC ABG pH POC ABG pCO2 28.2 L POC ABG pO2 111 H ABG pO2 ABG HCO3 ABG Base Excess ABG Hemoglobin Oxyhemoglobin Sodium Potassium Chloride Carbon Dioxide BUN Creatinine Glucose POC Glucose 145 H Lactic Acid Calcium Ionized Calcium Phosphorus Magnesium Direct Bilirubin AST ALT Alkaline Phosphatase Lactate Dehydrogenase Troponin T C-Reactive Protein Total Protein Albumin Prealbumin Triglycerides Cholesterol LDL Cholesterol Direct HDL Cholesterol 25-OH Vitamin D Total PTH Intact Urine pH Urine WBC (Auto) Urine Creatinine Urine Total Protein Fluid Total Protein Vancomycin Trough Rheumatoid Factor Complement C4 Miscellaneous Test Crossmatch 10/08/16 10/09/16 10/09/16 19:30 03:45 03:45 WBC 12.6 H RBC 2.36 L Hgb 6.7 L Hct 21.1 L MCV MCH MCHC RDW 19.5 H Plt Count 75 L Lymph % (Auto) [place] % (Auto) Lymph # [place] # Baso # Seg Neutrophils % Seg Neuts % (Manual) Lymphocytes % (Manual) Monocytes % (Manual) 10.0 H Eosinophils % (Manual) Basophils % (Manual) Nucleated RBC % 3.0 H Seg Neutrophils # Seg Neutrophils # Man Lymphocytes # (Manual) Monocytes # (Manual) 1.3 H Eosinophils # (Manual) Basophils # (Manual) PT 18.0 H INR 1.41 H Fibrinogen dRVVT Confirm Interp Factor V Activity POC ABG pH POC ABG pCO2 POC ABG pO2 ABG pO2 ABG HCO3 ABG Base Excess ABG Hemoglobin Oxyhemoglobin Sodium 135 L Potassium Chloride Carbon Dioxide 17 L BUN 81 H Creatinine 3.2 H Glucose 109 H POC Glucose Lactic Acid Calcium 7.4 L Ionized Calcium Phosphorus 4.60 H D Magnesium Direct Bilirubin AST ALT Alkaline Phosphatase Lactate Dehydrogenase Troponin T C-Reactive Protein Total Protein Albumin Prealbumin Triglycerides Cholesterol LDL Cholesterol Direct HDL Cholesterol 25-OH Vitamin D Total PTH Intact Urine pH Urine WBC (Auto) Urine Creatinine Urine Total Protein Fluid Total Protein Vancomycin Trough Rheumatoid Factor Complement C4 Miscellaneous Test Crossmatch 10/09/16 10/09/16 10/09/16 03:45 05:14 07:20 WBC RBC Hgb Hct MCV MCH MCHC RDW Plt Count Lymph % (Auto) [place] % (Auto) Lymph # [place] # Baso # Seg Neutrophils % Seg Neuts % (Manual) Lymphocytes % (Manual) Monocytes % (Manual) Eosinophils % (Manual) Basophils % (Manual) Nucleated RBC % Seg Neutrophils # Seg Neutrophils # Man Lymphocytes # (Manual) Monocytes # (Manual) Eosinophils # (Manual) Basophils # (Manual) PT 19.0 H INR 1.51 H Fibrinogen dRVVT Confirm Interp Factor V Activity POC ABG pH POC ABG pCO2 POC ABG pO2 ABG pO2 ABG HCO3 ABG Base Excess ABG Hemoglobin Oxyhemoglobin Sodium Potassium Chloride Carbon Dioxide BUN Creatinine Glucose POC Glucose 151 H Lactic Acid Calcium Ionized Calcium Phosphorus Magnesium Direct Bilirubin AST ALT Alkaline Phosphatase Lactate Dehydrogenase Troponin T C-Reactive Protein Total Protein Albumin Prealbumin Triglycerides Cholesterol LDL Cholesterol Direct HDL Cholesterol 25-OH Vitamin D Total PTH Intact Urine pH Urine WBC (Auto) Urine Creatinine Urine Total Protein Fluid Total Protein Vancomycin Trough Rheumatoid Factor Complement C4 Miscellaneous Test Crossmatch See Detail 10/09/16 10/09/16 10/09/16 11:46 16:20 16:43 WBC RBC Hgb 7.2 L Hct 22.2 L MCV MCH MCHC RDW Plt Count Lymph % (Auto) [place] % (Auto) Lymph # [place] # Baso # Seg Neutrophils % Seg Neuts % (Manual) Lymphocytes % (Manual) Monocytes % (Manual) Eosinophils % (Manual) Basophils % (Manual) Nucleated RBC % Seg Neutrophils # Seg Neutrophils # Man Lymphocytes # (Manual) Monocytes # (Manual) Eosinophils # (Manual) Basophils # (Manual) PT INR Fibrinogen dRVVT Confirm Interp Factor V Activity POC ABG pH POC ABG pCO2 POC ABG pO2 ABG pO2 ABG HCO3 ABG Base Excess ABG Hemoglobin Oxyhemoglobin Sodium Potassium Chloride Carbon Dioxide BUN Creatinine Glucose POC Glucose 133 H 141 H Lactic Acid Calcium Ionized Calcium Phosphorus Magnesium Direct Bilirubin AST ALT Alkaline Phosphatase Lactate Dehydrogenase Troponin T C-Reactive Protein Total Protein Albumin Prealbumin Triglycerides Cholesterol LDL Cholesterol Direct HDL Cholesterol 25-OH Vitamin D Total PTH Intact Urine pH Urine WBC (Auto) Urine Creatinine Urine Total Protein Fluid Total Protein Vancomycin Trough Rheumatoid Factor Complement C4 Miscellaneous Test Crossmatch 10/10/16 10/10/16 10/10/16 05:00 05:00 11:19 WBC 18.5 H RBC 2.19 L Hgb 6.4 L Hct 19.6 L* MCV MCH MCHC RDW 19.3 H Plt Count 93 L Lymph % (Auto) [place] % (Auto) Lymph # [place] # Baso # Seg Neutrophils % Seg Neuts % (Manual) Lymphocytes % (Manual) 10.0 L Monocytes % (Manual) Eosinophils % (Manual) Basophils % (Manual) Nucleated RBC % 4.0 H Seg Neutrophils # Seg Neutrophils # Man 11.3 H Lymphocytes # (Manual) Monocytes # (Manual) Eosinophils # (Manual) Basophils # (Manual) PT INR Fibrinogen dRVVT Confirm Interp Factor V Activity POC ABG pH POC ABG pCO2 POC ABG pO2 ABG pO2 ABG HCO3 ABG Base Excess ABG Hemoglobin Oxyhemoglobin Sodium Potassium 5.7 H D Chloride Carbon Dioxide 16 L BUN 94 H Creatinine 3.1 H Glucose 131 H POC Glucose 153 H Lactic Acid Calcium 8.2 L Ionized Calcium Phosphorus 5.10 H Magnesium 2.40 H Direct Bilirubin 0.3 H AST ALT < 5 L Alkaline Phosphatase 319 H Lactate Dehydrogenase Troponin T C-Reactive Protein Total Protein 5.1 L Albumin 1.0 L Prealbumin Triglycerides Cholesterol LDL Cholesterol Direct HDL Cholesterol 25-OH Vitamin D Total PTH Intact Urine pH Urine WBC (Auto) Urine Creatinine Urine Total Protein Fluid Total Protein Vancomycin Trough Rheumatoid Factor Complement C4 Miscellaneous Test Crossmatch 10/10/16 10/10/16 10/11/16 17:50 23:30 04:15 WBC RBC Hgb Hct MCV MCH MCHC RDW Plt Count Lymph % (Auto) [place] % (Auto) Lymph # [place] # Baso # Seg Neutrophils % Seg Neuts % (Manual) Lymphocytes % (Manual) Monocytes % (Manual) Eosinophils % (Manual) Basophils % (Manual) Nucleated RBC % Seg Neutrophils # Seg Neutrophils # Man Lymphocytes # (Manual) Monocytes # (Manual) Eosinophils # (Manual) Basophils # (Manual) PT INR Fibrinogen dRVVT Confirm Interp Factor V Activity POC ABG pH POC ABG pCO2 POC ABG pO2 ABG pO2 ABG HCO3 ABG Base Excess ABG Hemoglobin Oxyhemoglobin Sodium Potassium Chloride 96.4 L Carbon Dioxide 21 L BUN 57 H Creatinine 2.1 H Glucose 151 H POC Glucose 146 H 141 H Lactic Acid Calcium 8.3 L Ionized Calcium Phosphorus Magnesium Direct Bilirubin AST ALT Alkaline Phosphatase Lactate Dehydrogenase Troponin T C-Reactive Protein Total Protein Albumin Prealbumin Triglycerides Cholesterol LDL Cholesterol Direct HDL Cholesterol 25-OH Vitamin D Total PTH Intact Urine pH Urine WBC (Auto) Urine Creatinine Urine Total Protein Fluid Total Protein Vancomycin Trough Rheumatoid Factor Complement C4 Miscellaneous Test Crossmatch 10/11/16 10/11/16 10/11/16 04:15 04:15 05:30 WBC 28.3 H RBC 3.12 L Hgb 9.3 L Hct 28.7 L D MCV MCH MCHC RDW 17.7 H Plt Count 128 L Lymph % (Auto) [place] % (Auto) Lymph # [place] # Baso # Seg Neutrophils % Seg Neuts % (Manual) Lymphocytes % (Manual) Monocytes % (Manual) Eosinophils % (Manual) Basophils % (Manual) Nucleated RBC % Seg Neutrophils # Seg Neutrophils # Man Lymphocytes # (Manual) Monocytes # (Manual) Eosinophils # (Manual) Basophils # (Manual) PT INR Fibrinogen dRVVT Confirm Interp Factor V Activity POC ABG pH POC ABG pCO2 POC ABG pO2 ABG pO2 ABG HCO3 ABG Base Excess ABG Hemoglobin Oxyhemoglobin Sodium Potassium Chloride Carbon Dioxide BUN Creatinine Glucose POC Glucose 167 H Lactic Acid Calcium Ionized Calcium Phosphorus Magnesium Direct Bilirubin AST ALT Alkaline Phosphatase Lactate Dehydrogenase Troponin T C-Reactive Protein 15.80 H Total Protein Albumin Prealbumin Triglycerides Cholesterol LDL Cholesterol Direct HDL Cholesterol 25-OH Vitamin D Total PTH Intact Urine pH Urine WBC (Auto) Urine Creatinine Urine Total Protein Fluid Total Protein Vancomycin Trough Rheumatoid Factor Complement C4 Miscellaneous Test Crossmatch 10/11/16 10/11/16 10/11/16 11:40 15:49 23:57 WBC RBC Hgb Hct MCV MCH MCHC RDW Plt Count Lymph % (Auto) [place] % (Auto) Lymph # [place] # Baso # Seg Neutrophils % Seg Neuts % (Manual) Lymphocytes % (Manual) Monocytes % (Manual) Eosinophils % (Manual) Basophils % (Manual) Nucleated RBC % Seg Neutrophils # Seg Neutrophils # Man Lymphocytes # (Manual) Monocytes # (Manual) Eosinophils # (Manual) Basophils # (Manual) PT INR Fibrinogen dRVVT Confirm Interp Factor V Activity POC ABG pH POC ABG pCO2 POC ABG pO2 ABG pO2 ABG HCO3 ABG Base Excess ABG Hemoglobin Oxyhemoglobin Sodium Potassium Chloride Carbon Dioxide BUN Creatinine Glucose POC Glucose 139 H 168 H 161 H Lactic Acid Calcium Ionized Calcium Phosphorus Magnesium Direct Bilirubin AST ALT Alkaline Phosphatase Lactate Dehydrogenase Troponin T C-Reactive Protein Total Protein Albumin Prealbumin Triglycerides Cholesterol LDL Cholesterol Direct HDL Cholesterol 25-OH Vitamin D Total PTH Intact Urine pH Urine WBC (Auto) Urine Creatinine Urine Total Protein Fluid Total Protein Vancomycin Trough Rheumatoid Factor Complement C4 Miscellaneous Test Crossmatch 10/12/16 10/12/16 10/12/16 04:40 04:40 05:44 WBC 22.5 H RBC 2.88 L Hgb 8.8 L Hct 26.8 L MCV MCH MCHC RDW 17.8 H Plt Count Lymph % (Auto) [place] % (Auto) Lymph # [place] # Baso # Seg Neutrophils % Seg Neuts % (Manual) Lymphocytes % (Manual) Monocytes % (Manual) Eosinophils % (Manual) Basophils % (Manual) Nucleated RBC % Seg Neutrophils # Seg Neutrophils # Man Lymphocytes # (Manual) Monocytes # (Manual) Eosinophils # (Manual) Basophils # (Manual) PT INR Fibrinogen dRVVT Confirm Interp Factor V Activity POC ABG pH POC ABG pCO2 POC ABG pO2 ABG pO2 ABG HCO3 ABG Base Excess ABG Hemoglobin Oxyhemoglobin Sodium 134 L Potassium Chloride 93.0 L Carbon Dioxide BUN 74 H Creatinine 2.5 H Glucose 137 H POC Glucose 158 H Lactic Acid Calcium 8.2 L Ionized Calcium Phosphorus Magnesium Direct Bilirubin AST ALT Alkaline Phosphatase Lactate Dehydrogenase Troponin T C-Reactive Protein Total Protein Albumin Prealbumin Triglycerides Cholesterol LDL Cholesterol Direct HDL Cholesterol 25-OH Vitamin D Total PTH Intact Urine pH Urine WBC (Auto) Urine Creatinine Urine Total Protein Fluid Total Protein Vancomycin Trough Rheumatoid Factor Complement C4 Miscellaneous Test Crossmatch 10/12/16 10/12/16 10/12/16 12:27 18:18 23:46 WBC RBC Hgb Hct MCV MCH MCHC RDW Plt Count Lymph % (Auto) [place] % (Auto) Lymph # [place] # Baso # Seg Neutrophils % Seg Neuts % (Manual) Lymphocytes % (Manual) Monocytes % (Manual) Eosinophils % (Manual) Basophils % (Manual) Nucleated RBC % Seg Neutrophils # Seg Neutrophils # Man Lymphocytes # (Manual) Monocytes # (Manual) Eosinophils # (Manual) Basophils # (Manual) PT INR Fibrinogen dRVVT Confirm Interp Factor V Activity POC ABG pH POC ABG pCO2 POC ABG pO2 ABG pO2 ABG HCO3 ABG Base Excess ABG Hemoglobin Oxyhemoglobin Sodium Potassium Chloride Carbon Dioxide BUN Creatinine Glucose POC Glucose 153 H 140 H 150 H Lactic Acid Calcium Ionized Calcium Phosphorus Magnesium Direct Bilirubin AST ALT Alkaline Phosphatase Lactate Dehydrogenase Troponin T C-Reactive Protein Total Protein Albumin Prealbumin Triglycerides Cholesterol LDL Cholesterol Direct HDL Cholesterol 25-OH Vitamin D Total PTH Intact Urine pH Urine WBC (Auto) Urine Creatinine Urine Total Protein Fluid Total Protein Vancomycin Trough Rheumatoid Factor Complement C4 Miscellaneous Test Crossmatch 10/13/16 10/13/16 10/13/16 06:22 09:20 12:29 WBC RBC Hgb Hct MCV MCH MCHC RDW Plt Count Lymph % (Auto) [place] % (Auto) Lymph # [place] # Baso # Seg Neutrophils % Seg Neuts % (Manual) Lymphocytes % (Manual) Monocytes % (Manual) Eosinophils % (Manual) Basophils % (Manual) Nucleated RBC % Seg Neutrophils # Seg Neutrophils # Man Lymphocytes # (Manual) Monocytes # (Manual) Eosinophils # (Manual) Basophils # (Manual) PT INR Fibrinogen dRVVT Confirm Interp Factor V Activity POC ABG pH POC ABG pCO2 POC ABG pO2 ABG pO2 ABG HCO3 ABG Base Excess ABG Hemoglobin Oxyhemoglobin Sodium Potassium Chloride Carbon Dioxide BUN Creatinine Glucose POC Glucose 165 H 193 H Lactic Acid Calcium Ionized Calcium Phosphorus Magnesium Direct Bilirubin AST ALT Alkaline Phosphatase Lactate Dehydrogenase Troponin T C-Reactive Protein Total Protein Albumin Prealbumin Triglycerides Cholesterol LDL Cholesterol Direct HDL Cholesterol 25-OH Vitamin D Total PTH Intact Urine pH Urine WBC (Auto) Urine Creatinine Urine Total Protein Fluid Total Protein Vancomycin Trough Rheumatoid Factor Complement C4 Miscellaneous Test Flexitest 1 H Crossmatch 10/13/16 10/13/16 10/13/16 18:09 Unknown Unknown WBC 23.4 H RBC 2.83 L Hgb 8.7 L Hct 26.1 L MCV MCH MCHC RDW 18.1 H Plt Count Lymph % (Auto) [place] % (Auto) Lymph # [place] # Baso # Seg Neutrophils % Seg Neuts % (Manual) Lymphocytes % (Manual) Monocytes % (Manual) Eosinophils % (Manual) Basophils % (Manual) Nucleated RBC % Seg Neutrophils # Seg Neutrophils # Man Lymphocytes # (Manual) Monocytes # (Manual) Eosinophils # (Manual) Basophils # (Manual) PT INR Fibrinogen dRVVT Confirm Interp Factor V Activity POC ABG pH POC ABG pCO2 POC ABG pO2 ABG pO2 ABG HCO3 ABG Base Excess ABG Hemoglobin Oxyhemoglobin Sodium Potassium Chloride 95.8 L Carbon Dioxide BUN 82 H Creatinine 2.6 H Glucose 152 H POC Glucose 166 H Lactic Acid Calcium Ionized Calcium Phosphorus Magnesium Direct Bilirubin AST ALT Alkaline Phosphatase Lactate Dehydrogenase Troponin T C-Reactive Protein Total Protein Albumin Prealbumin Triglycerides Cholesterol LDL Cholesterol Direct HDL Cholesterol 25-OH Vitamin D Total PTH Intact Urine pH Urine WBC (Auto) Urine Creatinine Urine Total Protein Fluid Total Protein Vancomycin Trough Rheumatoid Factor Complement C4 Miscellaneous Test Crossmatch 10/14/16 10/14/16 10/14/16 05:38 06:35 08:10 WBC 20.7 H RBC 2.81 L Hgb 8.4 L Hct 27.2 L MCV MCH MCHC RDW 19.4 H Plt Count Lymph % (Auto) [place] % (Auto) Lymph # [place] # Baso # Seg Neutrophils % Seg Neuts % (Manual) Lymphocytes % (Manual) Monocytes % (Manual) Eosinophils % (Manual) Basophils % (Manual) Nucleated RBC % Seg Neutrophils # Seg Neutrophils # Man Lymphocytes # (Manual) Monocytes # (Manual) Eosinophils # (Manual) Basophils # (Manual) PT INR Fibrinogen dRVVT Confirm Interp Factor V Activity POC ABG pH POC ABG pCO2 POC ABG pO2 ABG pO2 ABG HCO3 ABG Base Excess ABG Hemoglobin Oxyhemoglobin Sodium Potassium Chloride Carbon Dioxide BUN 58 H Creatinine 1.9 H Glucose 169 H POC Glucose 195 H Lactic Acid Calcium Ionized Calcium Phosphorus Magnesium Direct Bilirubin AST ALT Alkaline Phosphatase Lactate Dehydrogenase Troponin T C-Reactive Protein Total Protein Albumin Prealbumin Triglycerides Cholesterol LDL Cholesterol Direct HDL Cholesterol 25-OH Vitamin D Total PTH Intact Urine pH Urine WBC (Auto) Urine Creatinine Urine Total Protein Fluid Total Protein Vancomycin Trough Rheumatoid Factor Complement C4 Miscellaneous Test Crossmatch 10/14/16 10/14/16 10/14/16 11:44 17:13 23:28 WBC RBC Hgb Hct MCV MCH MCHC RDW Plt Count Lymph % (Auto) [place] % (Auto) Lymph # [place] # Baso # Seg Neutrophils % Seg Neuts % (Manual) Lymphocytes % (Manual) Monocytes % (Manual) Eosinophils % (Manual) Basophils % (Manual) Nucleated RBC % Seg Neutrophils # Seg Neutrophils # Man Lymphocytes # (Manual) Monocytes # (Manual) Eosinophils # (Manual) Basophils # (Manual) PT INR Fibrinogen dRVVT Confirm Interp Factor V Activity POC ABG pH POC ABG pCO2 POC ABG pO2 ABG pO2 ABG HCO3 ABG Base Excess ABG Hemoglobin Oxyhemoglobin Sodium Potassium Chloride Carbon Dioxide BUN Creatinine Glucose POC Glucose 174 H 121 H 151 H Lactic Acid Calcium Ionized Calcium Phosphorus Magnesium Direct Bilirubin AST ALT Alkaline Phosphatase Lactate Dehydrogenase Troponin T C-Reactive Protein Total Protein Albumin Prealbumin Triglycerides Cholesterol LDL Cholesterol Direct HDL Cholesterol 25-OH Vitamin D Total PTH Intact Urine pH Urine WBC (Auto) Urine Creatinine Urine Total Protein Fluid Total Protein Vancomycin Trough Rheumatoid Factor Complement C4 Miscellaneous Test Crossmatch 10/15/16 10/15/16 10/15/16 05:06 12:26 17:48 WBC RBC Hgb Hct MCV MCH MCHC RDW Plt Count Lymph % (Auto) [place] % (Auto) Lymph # [place] # Baso # Seg Neutrophils % Seg Neuts % (Manual) Lymphocytes % (Manual) Monocytes % (Manual) Eosinophils % (Manual) Basophils % (Manual) Nucleated RBC % Seg Neutrophils # Seg Neutrophils # Man Lymphocytes # (Manual) Monocytes # (Manual) Eosinophils # (Manual) Basophils # (Manual) PT INR Fibrinogen dRVVT Confirm Interp Factor V Activity POC ABG pH POC ABG pCO2 POC ABG pO2 ABG pO2 ABG HCO3 ABG Base Excess ABG Hemoglobin Oxyhemoglobin Sodium Potassium Chloride Carbon Dioxide BUN Creatinine Glucose POC Glucose 151 H 149 H 153 H Lactic Acid Calcium Ionized Calcium Phosphorus Magnesium Direct Bilirubin AST ALT Alkaline Phosphatase Lactate Dehydrogenase Troponin T C-Reactive Protein Total Protein Albumin Prealbumin Triglycerides Cholesterol LDL Cholesterol Direct HDL Cholesterol 25-OH Vitamin D Total PTH Intact Urine pH Urine WBC (Auto) Urine Creatinine Urine Total Protein Fluid Total Protein Vancomycin Trough Rheumatoid Factor Complement C4 Miscellaneous Test Crossmatch 10/15/16 10/15/16 10/16/16 Unknown Unknown 00:02 WBC 23.4 H RBC 2.78 L Hgb 8.5 L Hct 25.7 L MCV MCH MCHC RDW 18.7 H Plt Count Lymph % (Auto) [place] % (Auto) Lymph # [place] # Baso # Seg Neutrophils % Seg Neuts % (Manual) Lymphocytes % (Manual) Monocytes % (Manual) Eosinophils % (Manual) Basophils % (Manual) Nucleated RBC % Seg Neutrophils # Seg Neutrophils # Man Lymphocytes # (Manual) Monocytes # (Manual) Eosinophils # (Manual) Basophils # (Manual) PT INR Fibrinogen dRVVT Confirm Interp Factor V Activity POC ABG pH POC ABG pCO2 POC ABG pO2 ABG pO2 ABG HCO3 ABG Base Excess ABG Hemoglobin Oxyhemoglobin Sodium Potassium Chloride Carbon Dioxide BUN 73 H Creatinine 2.3 H Glucose 120 H POC Glucose 137 H Lactic Acid Calcium Ionized Calcium Phosphorus Magnesium Direct Bilirubin AST ALT Alkaline Phosphatase Lactate Dehydrogenase Troponin T C-Reactive Protein Total Protein Albumin Prealbumin Triglycerides Cholesterol LDL Cholesterol Direct HDL Cholesterol 25-OH Vitamin D Total PTH Intact Urine pH Urine WBC (Auto) Urine Creatinine Urine Total Protein Fluid Total Protein Vancomycin Trough Rheumatoid Factor Complement C4 Miscellaneous Test Crossmatch 10/16/16 10/16/16 10/16/16 05:44 06:25 06:25 WBC 22.5 H RBC 2.76 L Hgb 8.3 L Hct 25.2 L MCV MCH MCHC RDW 18.3 H Plt Count Lymph % (Auto) [place] % (Auto) Lymph # [place] # Baso # Seg Neutrophils % Seg Neuts % (Manual) Lymphocytes % (Manual) Monocytes % (Manual) Eosinophils % (Manual) Basophils % (Manual) Nucleated RBC % Seg Neutrophils # Seg Neutrophils # Man Lymphocytes # (Manual) Monocytes # (Manual) Eosinophils # (Manual) Basophils # (Manual) PT INR Fibrinogen dRVVT Confirm Interp Factor V Activity POC ABG pH POC ABG pCO2 POC ABG pO2 ABG pO2 ABG HCO3 ABG Base Excess ABG Hemoglobin Oxyhemoglobin Sodium Potassium Chloride Carbon Dioxide BUN 92 H Creatinine 3.0 H Glucose 138 H POC Glucose 110 H Lactic Acid Calcium Ionized Calcium Phosphorus Magnesium Direct Bilirubin AST ALT Alkaline Phosphatase Lactate Dehydrogenase Troponin T C-Reactive Protein Total Protein Albumin Prealbumin Triglycerides Cholesterol LDL Cholesterol Direct HDL Cholesterol 25-OH Vitamin D Total PTH Intact Urine pH Urine WBC (Auto) Urine Creatinine Urine Total Protein Fluid Total Protein Vancomycin Trough Rheumatoid Factor Complement C4 Miscellaneous Test Crossmatch 10/16/16 10/16/16 10/16/16 11:27 11:48 17:36 WBC RBC Hgb Hct MCV MCH MCHC RDW Plt Count Lymph % (Auto) [place] % (Auto) Lymph # [place] # Baso # Seg Neutrophils % Seg Neuts % (Manual) Lymphocytes % (Manual) Monocytes % (Manual) Eosinophils % (Manual) Basophils % (Manual) Nucleated RBC % Seg Neutrophils # Seg Neutrophils # Man Lymphocytes # (Manual) Monocytes # (Manual) Eosinophils # (Manual) Basophils # (Manual) PT INR Fibrinogen dRVVT Confirm Interp Factor V Activity POC ABG pH 7.582 H POC ABG pCO2 27.4 L POC ABG pO2 110 H ABG pO2 ABG HCO3 ABG Base Excess ABG Hemoglobin Oxyhemoglobin Sodium Potassium Chloride Carbon Dioxide BUN Creatinine Glucose POC Glucose 121 H 133 H Lactic Acid Calcium Ionized Calcium Phosphorus Magnesium Direct Bilirubin AST ALT Alkaline Phosphatase Lactate Dehydrogenase Troponin T C-Reactive Protein Total Protein Albumin Prealbumin Triglycerides Cholesterol LDL Cholesterol Direct HDL Cholesterol 25-OH Vitamin D Total PTH Intact Urine pH Urine WBC (Auto) Urine Creatinine Urine Total Protein Fluid Total Protein Vancomycin Trough Rheumatoid Factor Complement C4 Miscellaneous Test Crossmatch 10/16/16 10/17/16 10/17/16 20:48 04:24 04:24 WBC 21.4 H RBC 2.72 L Hgb 8.0 L Hct 25.2 L MCV MCH MCHC RDW 18.0 H Plt Count Lymph % (Auto) [place] % (Auto) Lymph # [place] # Baso # Seg Neutrophils % Seg Neuts % (Manual) Lymphocytes % (Manual) Monocytes % (Manual) Eosinophils % (Manual) Basophils % (Manual) Nucleated RBC % Seg Neutrophils # Seg Neutrophils # Man Lymphocytes # (Manual) Monocytes # (Manual) Eosinophils # (Manual) Basophils # (Manual) PT INR Fibrinogen dRVVT Confirm Interp Factor V Activity POC ABG pH 7.561 H POC ABG pCO2 24.4 L POC ABG pO2 77 L ABG pO2 ABG HCO3 ABG Base Excess ABG Hemoglobin Oxyhemoglobin Sodium 148 H Potassium Chloride Carbon Dioxide BUN 104 H Creatinine 3.0 H Glucose 149 H POC Glucose Lactic Acid Calcium Ionized Calcium Phosphorus Magnesium Direct Bilirubin AST ALT Alkaline Phosphatase 138 H Lactate Dehydrogenase Troponin T C-Reactive Protein Total Protein 6.2 L Albumin 1.5 L Prealbumin Triglycerides Cholesterol LDL Cholesterol Direct HDL Cholesterol 25-OH Vitamin D Total PTH Intact Urine pH Urine WBC (Auto) Urine Creatinine Urine Total Protein Fluid Total Protein Vancomycin Trough Rheumatoid Factor Complement C4 Miscellaneous Test Crossmatch 10/17/16 10/17/16 10/17/16 06:02 12:17 17:14 WBC RBC Hgb Hct MCV MCH MCHC RDW Plt Count Lymph % (Auto) [place] % (Auto) Lymph # [place] # Baso # Seg Neutrophils % Seg Neuts % (Manual) Lymphocytes % (Manual) Monocytes % (Manual) Eosinophils % (Manual) Basophils % (Manual) Nucleated RBC % Seg Neutrophils # Seg Neutrophils # Man Lymphocytes # (Manual) Monocytes # (Manual) Eosinophils # (Manual) Basophils # (Manual) PT INR Fibrinogen dRVVT Confirm Interp Factor V Activity POC ABG pH POC ABG pCO2 POC ABG pO2 ABG pO2 ABG HCO3 ABG Base Excess ABG Hemoglobin Oxyhemoglobin Sodium Potassium Chloride Carbon Dioxide BUN Creatinine Glucose POC Glucose 170 H 167 H 126 H Lactic Acid Calcium Ionized Calcium Phosphorus Magnesium Direct Bilirubin AST ALT Alkaline Phosphatase Lactate Dehydrogenase Troponin T C-Reactive Protein Total Protein Albumin Prealbumin Triglycerides Cholesterol LDL Cholesterol Direct HDL Cholesterol 25-OH Vitamin D Total PTH Intact Urine pH Urine WBC (Auto) Urine Creatinine Urine Total Protein Fluid Total Protein Vancomycin Trough Rheumatoid Factor Complement C4 Miscellaneous Test Crossmatch 10/17/16 10/18/16 10/18/16 23:17 04:00 04:00 WBC 20.7 H RBC 2.47 L Hgb 7.4 L Hct 22.9 L MCV MCH MCHC RDW 17.5 H Plt Count Lymph % (Auto) [place] % (Auto) Lymph # [place] # Baso # Seg Neutrophils % Seg Neuts % (Manual) Lymphocytes % (Manual) Monocytes % (Manual) Eosinophils % (Manual) Basophils % (Manual) Nucleated RBC % Seg Neutrophils # Seg Neutrophils # Man Lymphocytes # (Manual) Monocytes # (Manual) Eosinophils # (Manual) Basophils # (Manual) PT INR Fibrinogen dRVVT Confirm Interp Factor V Activity POC ABG pH POC ABG pCO2 POC ABG pO2 ABG pO2 ABG HCO3 ABG Base Excess ABG Hemoglobin Oxyhemoglobin Sodium 149 H Potassium Chloride 107.9 H Carbon Dioxide 20 L BUN 117 H Creatinine 3.2 H Glucose 119 H POC Glucose 121 H Lactic Acid Calcium Ionized Calcium Phosphorus Magnesium Direct Bilirubin AST ALT Alkaline Phosphatase Lactate Dehydrogenase Troponin T C-Reactive Protein Total Protein Albumin Prealbumin Triglycerides Cholesterol LDL Cholesterol Direct HDL Cholesterol 25-OH Vitamin D Total PTH Intact Urine pH Urine WBC (Auto) Urine Creatinine Urine Total Protein Fluid Total Protein Vancomycin Trough Rheumatoid Factor Complement C4 Miscellaneous Test Crossmatch 10/18/16 10/18/16 10/18/16 05:23 10:46 17:30 WBC RBC Hgb Hct MCV MCH MCHC RDW Plt Count Lymph % (Auto) [place] % (Auto) Lymph # [place] # Baso # Seg Neutrophils % Seg Neuts % (Manual) Lymphocytes % (Manual) Monocytes % (Manual) Eosinophils % (Manual) Basophils % (Manual) Nucleated RBC % Seg Neutrophils # Seg Neutrophils # Man Lymphocytes # (Manual) Monocytes # (Manual) Eosinophils # (Manual) Basophils # (Manual) PT INR Fibrinogen dRVVT Confirm Interp Factor V Activity POC ABG pH POC ABG pCO2 POC ABG pO2 ABG pO2 ABG HCO3 ABG Base Excess ABG Hemoglobin Oxyhemoglobin Sodium Potassium Chloride Carbon Dioxide BUN Creatinine Glucose POC Glucose 119 H 155 H 124 H Lactic Acid Calcium Ionized Calcium Phosphorus Magnesium Direct Bilirubin AST ALT Alkaline Phosphatase Lactate Dehydrogenase Troponin T C-Reactive Protein Total Protein Albumin Prealbumin Triglycerides Cholesterol LDL Cholesterol Direct HDL Cholesterol 25-OH Vitamin D Total PTH Intact Urine pH Urine WBC (Auto) Urine Creatinine Urine Total Protein Fluid Total Protein Vancomycin Trough Rheumatoid Factor Complement C4 Miscellaneous Test Crossmatch 10/19/16 10/19/16 10/19/16 04:00 04:00 05:25 WBC 17.4 H RBC 2.54 L Hgb 7.7 L Hct 23.6 L MCV MCH MCHC RDW 17.3 H Plt Count Lymph % (Auto) [place] % (Auto) Lymph # [place] # Baso # Seg Neutrophils % Seg Neuts % (Manual) Lymphocytes % (Manual) Monocytes % (Manual) Eosinophils % (Manual) Basophils % (Manual) Nucleated RBC % Seg Neutrophils # Seg Neutrophils # Man Lymphocytes # (Manual) Monocytes # (Manual) Eosinophils # (Manual) Basophils # (Manual) PT INR Fibrinogen dRVVT Confirm Interp Factor V Activity POC ABG pH POC ABG pCO2 POC ABG pO2 ABG pO2 ABG HCO3 ABG Base Excess ABG Hemoglobin Oxyhemoglobin Sodium Potassium Chloride Carbon Dioxide BUN 72 H Creatinine 2.1 H Glucose 116 H POC Glucose 119 H Lactic Acid Calcium Ionized Calcium Phosphorus Magnesium Direct Bilirubin AST ALT Alkaline Phosphatase Lactate Dehydrogenase Troponin T C-Reactive Protein Total Protein Albumin Prealbumin Triglycerides Cholesterol LDL Cholesterol Direct HDL Cholesterol 25-OH Vitamin D Total PTH Intact Urine pH Urine WBC (Auto) Urine Creatinine Urine Total Protein Fluid Total Protein Vancomycin Trough Rheumatoid Factor Complement C4 Miscellaneous Test Crossmatch 10/19/16 10/19/16 10/20/16 11:46 23:59 06:00 WBC RBC Hgb Hct MCV MCH MCHC RDW Plt Count Lymph % (Auto) [place] % (Auto) Lymph # [place] # Baso # Seg Neutrophils % Seg Neuts % (Manual) Lymphocytes % (Manual) Monocytes % (Manual) Eosinophils % (Manual) Basophils % (Manual) Nucleated RBC % Seg Neutrophils # Seg Neutrophils # Man Lymphocytes # (Manual) Monocytes # (Manual) Eosinophils # (Manual) Basophils # (Manual) PT INR Fibrinogen dRVVT Confirm Interp Factor V Activity POC ABG pH POC ABG pCO2 POC ABG pO2 ABG pO2 ABG HCO3 ABG Base Excess ABG Hemoglobin Oxyhemoglobin Sodium Potassium Chloride Carbon Dioxide 17 L BUN 94 H Creatinine 2.7 H Glucose POC Glucose 116 H 117 H Lactic Acid Calcium Ionized Calcium Phosphorus Magnesium Direct Bilirubin AST ALT Alkaline Phosphatase Lactate Dehydrogenase Troponin T C-Reactive Protein Total Protein Albumin Prealbumin Triglycerides Cholesterol LDL Cholesterol Direct HDL Cholesterol 25-OH Vitamin D Total PTH Intact Urine pH Urine WBC (Auto) Urine Creatinine Urine Total Protein Fluid Total Protein Vancomycin Trough Rheumatoid Factor Complement C4 Miscellaneous Test Crossmatch 10/20/16 10/20/16 10/20/16 06:00 11:49 16:00 WBC 19.7 H RBC 2.51 L Hgb 7.7 L Hct 23.5 L MCV MCH MCHC RDW 17.5 H Plt Count Lymph % (Auto) [place] % (Auto) Lymph # [place] # Baso # Seg Neutrophils % Seg Neuts % (Manual) Lymphocytes % (Manual) Monocytes % (Manual) Eosinophils % (Manual) Basophils % (Manual) Nucleated RBC % Seg Neutrophils # Seg Neutrophils # Man Lymphocytes # (Manual) Monocytes # (Manual) Eosinophils # (Manual) Basophils # (Manual) PT INR Fibrinogen dRVVT Confirm Interp Factor V Activity POC ABG pH POC ABG pCO2 POC ABG pO2 ABG pO2 ABG HCO3 ABG Base Excess ABG Hemoglobin Oxyhemoglobin Sodium Potassium Chloride Carbon Dioxide BUN Creatinine Glucose POC Glucose 117 H Lactic Acid Calcium Ionized Calcium Phosphorus Magnesium Direct Bilirubin AST ALT Alkaline Phosphatase Lactate Dehydrogenase Troponin T C-Reactive Protein Total Protein Albumin Prealbumin Triglycerides Cholesterol LDL Cholesterol Direct HDL Cholesterol 25-OH Vitamin D Total PTH Intact Urine pH Urine WBC (Auto) Urine Creatinine Urine Total Protein Fluid Total Protein Vancomycin Trough Rheumatoid Factor Complement C4 Miscellaneous Test Flexitest 1 H Crossmatch 10/20/16 10/20/16 10/21/16 18:36 23:39 04:00 WBC RBC Hgb Hct MCV MCH MCHC RDW Plt Count Lymph % (Auto) [place] % (Auto) Lymph # [place] # Baso # Seg Neutrophils % Seg Neuts % (Manual) Lymphocytes % (Manual) Monocytes % (Manual) Eosinophils % (Manual) Basophils % (Manual) Nucleated RBC % Seg Neutrophils # Seg Neutrophils # Man Lymphocytes # (Manual) Monocytes # (Manual) Eosinophils # (Manual) Basophils # (Manual) PT INR Fibrinogen dRVVT Confirm Interp Factor V Activity POC ABG pH POC ABG pCO2 POC ABG pO2 ABG pO2 ABG HCO3 ABG Base Excess ABG Hemoglobin Oxyhemoglobin Sodium Potassium 5.4 H D Chloride Carbon Dioxide 15 L BUN 110 H Creatinine 3.0 H Glucose POC Glucose 127 H 114 H Lactic Acid Calcium Ionized Calcium Phosphorus Magnesium Direct Bilirubin AST ALT Alkaline Phosphatase Lactate Dehydrogenase Troponin T C-Reactive Protein Total Protein Albumin Prealbumin Triglycerides Cholesterol LDL Cholesterol Direct HDL Cholesterol 25-OH Vitamin D Total PTH Intact Urine pH Urine WBC (Auto) Urine Creatinine Urine Total Protein Fluid Total Protein Vancomycin Trough Rheumatoid Factor Complement C4 Miscellaneous Test Crossmatch 10/21/16 10/21/16 10/22/16 05:54 23:46 05:18 WBC RBC Hgb Hct MCV MCH MCHC RDW Plt Count Lymph % (Auto) [place] % (Auto) Lymph # [place] # Baso # Seg Neutrophils % Seg Neuts % (Manual) Lymphocytes % (Manual) Monocytes % (Manual) Eosinophils % (Manual) Basophils % (Manual) Nucleated RBC % Seg Neutrophils # Seg Neutrophils # Man Lymphocytes # (Manual) Monocytes # (Manual) Eosinophils # (Manual) Basophils # (Manual) PT INR Fibrinogen dRVVT Confirm Interp Factor V Activity POC ABG pH POC ABG pCO2 POC ABG pO2 ABG pO2 ABG HCO3 ABG Base Excess ABG Hemoglobin Oxyhemoglobin Sodium Potassium Chloride Carbon Dioxide BUN Creatinine Glucose POC Glucose 119 H 108 H 109 H Lactic Acid Calcium Ionized Calcium Phosphorus Magnesium Direct Bilirubin AST ALT Alkaline Phosphatase Lactate Dehydrogenase Troponin T C-Reactive Protein Total Protein Albumin Prealbumin Triglycerides Cholesterol LDL Cholesterol Direct HDL Cholesterol 25-OH Vitamin D Total PTH Intact Urine pH Urine WBC (Auto) Urine Creatinine Urine Total Protein Fluid Total Protein Vancomycin Trough Rheumatoid Factor Complement C4 Miscellaneous Test Crossmatch 10/22/16 10/22/16 10/22/16 06:40 06:40 06:40 WBC 14.0 H RBC 2.03 L Hgb 7.0 L Hct 20.5 L MCV 98 H MCH 34 H MCHC 35 H RDW 17.8 H Plt Count Lymph % (Auto) [place] % (Auto) 9.9 H Lymph # [place] # 1.4 H Baso # 0.2 H Seg Neutrophils % 72.0 H Seg Neuts % (Manual) Lymphocytes % (Manual) Monocytes % (Manual) Eosinophils % (Manual) Basophils % (Manual) Nucleated RBC % Seg Neutrophils # 10.0 H Seg Neutrophils # Man Lymphocytes # (Manual) Monocytes # (Manual) Eosinophils # (Manual) Basophils # (Manual) PT INR Fibrinogen dRVVT Confirm Interp Factor V Activity POC ABG pH POC ABG pCO2 POC ABG pO2 ABG pO2 ABG HCO3 ABG Base Excess ABG Hemoglobin Oxyhemoglobin Sodium 130 L D Potassium Chloride 92.4 L Carbon Dioxide 20 L BUN 50 H Creatinine 1.6 H Glucose 589 H* POC Glucose Lactic Acid Calcium 7.8 L D Ionized Calcium Phosphorus Magnesium 1.60 L Direct Bilirubin AST ALT Alkaline Phosphatase Lactate Dehydrogenase Troponin T C-Reactive Protein Total Protein Albumin Prealbumin Triglycerides Cholesterol LDL Cholesterol Direct HDL Cholesterol 25-OH Vitamin D Total PTH Intact Urine pH Urine WBC (Auto) Urine Creatinine Urine Total Protein Fluid Total Protein Vancomycin Trough Rheumatoid Factor Complement C4 Miscellaneous Test Crossmatch 10/22/16 10/22/16 10/22/16 11:39 16:44 23:36 WBC RBC Hgb Hct MCV MCH MCHC RDW Plt Count Lymph % (Auto) [place] % (Auto) Lymph # [place] # Baso # Seg Neutrophils % Seg Neuts % (Manual) Lymphocytes % (Manual) Monocytes % (Manual) Eosinophils % (Manual) Basophils % (Manual) Nucleated RBC % Seg Neutrophils # Seg Neutrophils # Man Lymphocytes # (Manual) Monocytes # (Manual) Eosinophils # (Manual) Basophils # (Manual) PT INR Fibrinogen dRVVT Confirm Interp Factor V Activity POC ABG pH POC ABG pCO2 POC ABG pO2 ABG pO2 ABG HCO3 ABG Base Excess ABG Hemoglobin Oxyhemoglobin Sodium Potassium Chloride Carbon Dioxide BUN Creatinine Glucose POC Glucose 142 H 163 H 123 H Lactic Acid Calcium Ionized Calcium Phosphorus Magnesium Direct Bilirubin AST ALT Alkaline Phosphatase Lactate Dehydrogenase Troponin T C-Reactive Protein Total Protein Albumin Prealbumin Triglycerides Cholesterol LDL Cholesterol Direct HDL Cholesterol 25-OH Vitamin D Total PTH Intact Urine pH Urine WBC (Auto) Urine Creatinine Urine Total Protein Fluid Total Protein Vancomycin Trough Rheumatoid Factor Complement C4 Miscellaneous Test Crossmatch 10/23/16 10/23/16 10/23/16 04:58 06:00 12:12 WBC RBC Hgb Hct MCV MCH MCHC RDW Plt Count Lymph % (Auto) [place] % (Auto) Lymph # [place] # Baso # Seg Neutrophils % Seg Neuts % (Manual) Lymphocytes % (Manual) Monocytes % (Manual) Eosinophils % (Manual) Basophils % (Manual) Nucleated RBC % Seg Neutrophils # Seg Neutrophils # Man Lymphocytes # (Manual) Monocytes # (Manual) Eosinophils # (Manual) Basophils # (Manual) PT INR Fibrinogen dRVVT Confirm Interp Factor V Activity POC ABG pH POC ABG pCO2 POC ABG pO2 ABG pO2 ABG HCO3 ABG Base Excess ABG Hemoglobin Oxyhemoglobin Sodium 133 L Potassium 3.5 L Chloride 96.1 L Carbon Dioxide 18 L BUN 76 H Creatinine 2.1 H Glucose POC Glucose 133 H 138 H Lactic Acid Calcium 8.3 L Ionized Calcium Phosphorus Magnesium Direct Bilirubin AST ALT Alkaline Phosphatase Lactate Dehydrogenase Troponin T C-Reactive Protein Total Protein Albumin Prealbumin Triglycerides Cholesterol LDL Cholesterol Direct HDL Cholesterol 25-OH Vitamin D Total PTH Intact Urine pH Urine WBC (Auto) Urine Creatinine Urine Total Protein Fluid Total Protein Vancomycin Trough Rheumatoid Factor Complement C4 Miscellaneous Test Crossmatch 10/23/16 10/23/16 10/24/16 16:53 23:37 04:00 WBC RBC Hgb Hct MCV MCH MCHC RDW Plt Count Lymph % (Auto) [place] % (Auto) Lymph # [place] # Baso # Seg Neutrophils % Seg Neuts % (Manual) Lymphocytes % (Manual) Monocytes % (Manual) Eosinophils % (Manual) Basophils % (Manual) Nucleated RBC % Seg Neutrophils # Seg Neutrophils # Man Lymphocytes # (Manual) Monocytes # (Manual) Eosinophils # (Manual) Basophils # (Manual) PT INR Fibrinogen dRVVT Confirm Interp Factor V Activity POC ABG pH POC ABG pCO2 POC ABG pO2 ABG pO2 ABG HCO3 ABG Base Excess ABG Hemoglobin Oxyhemoglobin Sodium 131 L Potassium Chloride 94.5 L Carbon Dioxide 19 L BUN 97 H Creatinine 2.6 H Glucose 110 H POC Glucose 125 H 123 H Lactic Acid Calcium 8.3 L Ionized Calcium Phosphorus Magnesium Direct Bilirubin AST ALT Alkaline Phosphatase Lactate Dehydrogenase Troponin T C-Reactive Protein Total Protein Albumin Prealbumin Triglycerides Cholesterol LDL Cholesterol Direct HDL Cholesterol 25-OH Vitamin D Total PTH Intact Urine pH Urine WBC (Auto) Urine Creatinine Urine Total Protein Fluid Total Protein Vancomycin Trough Rheumatoid Factor Complement C4 Miscellaneous Test Crossmatch 10/24/16 10/24/16 10/24/16 07:49 11:39 17:52 WBC RBC Hgb 6.0 L Hct 19.7 L* MCV MCH MCHC RDW Plt Count Lymph % (Auto) [place] % (Auto) Lymph # [place] # Baso # Seg Neutrophils % Seg Neuts % (Manual) Lymphocytes % (Manual) Monocytes % (Manual) Eosinophils % (Manual) Basophils % (Manual) Nucleated RBC % Seg Neutrophils # Seg Neutrophils # Man Lymphocytes # (Manual) Monocytes # (Manual) Eosinophils # (Manual) Basophils # (Manual) PT INR Fibrinogen dRVVT Confirm Interp Factor V Activity POC ABG pH POC ABG pCO2 POC ABG pO2 ABG pO2 ABG HCO3 ABG Base Excess ABG Hemoglobin Oxyhemoglobin Sodium Potassium Chloride Carbon Dioxide BUN Creatinine Glucose POC Glucose 106 H 158 H Lactic Acid Calcium Ionized Calcium Phosphorus Magnesium Direct Bilirubin AST ALT Alkaline Phosphatase Lactate Dehydrogenase Troponin T C-Reactive Protein Total Protein Albumin Prealbumin Triglycerides Cholesterol LDL Cholesterol Direct HDL Cholesterol 25-OH Vitamin D Total PTH Intact Urine pH Urine WBC (Auto) Urine Creatinine Urine Total Protein Fluid Total Protein Vancomycin Trough Rheumatoid Factor Complement C4 Miscellaneous Test Crossmatch 10/24/16 10/24/16 10/24/16 20:00 22:27 Unknown WBC RBC Hgb 9.4 L D Hct 27.5 L D MCV MCH MCHC RDW Plt Count Lymph % (Auto) [place] % (Auto) Lymph # [place] # Baso # Seg Neutrophils % Seg Neuts % (Manual) Lymphocytes % (Manual) Monocytes % (Manual) Eosinophils % (Manual) Basophils % (Manual) Nucleated RBC % Seg Neutrophils # Seg Neutrophils # Man Lymphocytes # (Manual) Monocytes # (Manual) Eosinophils # (Manual) Basophils # (Manual) PT INR Fibrinogen dRVVT Confirm Interp Factor V Activity POC ABG pH POC ABG pCO2 POC ABG pO2 ABG pO2 ABG HCO3 ABG Base Excess ABG Hemoglobin Oxyhemoglobin Sodium Potassium Chloride Carbon Dioxide BUN Creatinine Glucose POC Glucose 125 H Lactic Acid Calcium Ionized Calcium Phosphorus Magnesium Direct Bilirubin AST ALT Alkaline Phosphatase Lactate Dehydrogenase Troponin T C-Reactive Protein Total Protein Albumin Prealbumin Triglycerides Cholesterol LDL Cholesterol Direct HDL Cholesterol 25-OH Vitamin D Total PTH Intact Urine pH Urine WBC (Auto) Urine Creatinine Urine Total Protein Fluid Total Protein Vancomycin Trough Rheumatoid Factor Complement C4 Miscellaneous Test Crossmatch See Detail 10/25/16 10/25/16 10/25/16 04:00 04:00 04:00 WBC 14.2 H RBC 2.98 L Hgb 9.0 L Hct 26.2 L MCV MCH MCHC RDW 16.6 H Plt Count Lymph % (Auto) [place] % (Auto) 10.7 H Lymph # [place] # 1.5 H Baso # Seg Neutrophils % 73.6 H Seg Neuts % (Manual) Lymphocytes % (Manual) Monocytes % (Manual) Eosinophils % (Manual) Basophils % (Manual) Nucleated RBC % Seg Neutrophils # 10.5 H Seg Neutrophils # Man Lymphocytes # (Manual) Monocytes # (Manual) Eosinophils # (Manual) Basophils # (Manual) PT INR Fibrinogen dRVVT Confirm Interp Factor V Activity POC ABG pH POC ABG pCO2 POC ABG pO2 ABG pO2 ABG HCO3 ABG Base Excess ABG Hemoglobin Oxyhemoglobin Sodium 132 L Potassium Chloride 94.7 L Carbon Dioxide BUN 51 H Creatinine 1.6 H Glucose 130 H POC Glucose Lactic Acid Calcium 8.3 L Ionized Calcium Phosphorus 1.60 L D Magnesium Direct Bilirubin AST ALT Alkaline Phosphatase Lactate Dehydrogenase Troponin T C-Reactive Protein Total Protein Albumin Prealbumin Triglycerides Cholesterol LDL Cholesterol Direct HDL Cholesterol 25-OH Vitamin D Total PTH Intact Urine pH Urine WBC (Auto) Urine Creatinine Urine Total Protein Fluid Total Protein Vancomycin Trough Rheumatoid Factor Complement C4 Miscellaneous Test Crossmatch 10/25/16 10/25/16 10/25/16 04:32 11:48 17:22 WBC RBC Hgb Hct MCV MCH MCHC RDW Plt Count Lymph % (Auto) [place] % (Auto) Lymph # [place] # Baso # Seg Neutrophils % Seg Neuts % (Manual) Lymphocytes % (Manual) Monocytes % (Manual) Eosinophils % (Manual) Basophils % (Manual) Nucleated RBC % Seg Neutrophils # Seg Neutrophils # Man Lymphocytes # (Manual) Monocytes # (Manual) Eosinophils # (Manual) Basophils # (Manual) PT INR Fibrinogen dRVVT Confirm Interp Factor V Activity POC ABG pH POC ABG pCO2 POC ABG pO2 ABG pO2 ABG HCO3 ABG Base Excess ABG Hemoglobin Oxyhemoglobin Sodium Potassium Chloride Carbon Dioxide BUN Creatinine Glucose POC Glucose 124 H 171 H 120 H Lactic Acid Calcium Ionized Calcium Phosphorus Magnesium Direct Bilirubin AST ALT Alkaline Phosphatase Lactate Dehydrogenase Troponin T C-Reactive Protein Total Protein Albumin Prealbumin Triglycerides Cholesterol LDL Cholesterol Direct HDL Cholesterol 25-OH Vitamin D Total PTH Intact Urine pH Urine WBC (Auto) Urine Creatinine Urine Total Protein Fluid Total Protein Vancomycin Trough Rheumatoid Factor Complement C4 Miscellaneous Test Crossmatch 10/26/16 10/26/16 10/26/16 04:54 07:06 07:06 WBC 16.9 H RBC 3.06 L Hgb 9.1 L Hct 26.9 L MCV MCH MCHC RDW 16.9 H Plt Count Lymph % (Auto) [place] % (Auto) Lymph # [place] # Baso # Seg Neutrophils % Seg Neuts % (Manual) 71.0 H Lymphocytes % (Manual) 5.0 L Monocytes % (Manual) 12.0 H Eosinophils % (Manual) Basophils % (Manual) Nucleated RBC % Seg Neutrophils # Seg Neutrophils # Man 12.0 H Lymphocytes # (Manual) 0.8 L Monocytes # (Manual) 2.0 H Eosinophils # (Manual) Basophils # (Manual) PT INR Fibrinogen dRVVT Confirm Interp Factor V Activity POC ABG pH POC ABG pCO2 POC ABG pO2 ABG pO2 ABG HCO3 ABG Base Excess ABG Hemoglobin Oxyhemoglobin Sodium 135 L Potassium Chloride 97.1 L Carbon Dioxide BUN 73 H Creatinine 2.2 H Glucose 117 H POC Glucose 123 H Lactic Acid Calcium Ionized Calcium Phosphorus 1.70 L Magnesium Direct Bilirubin AST ALT Alkaline Phosphatase Lactate Dehydrogenase Troponin T C-Reactive Protein Total Protein Albumin Prealbumin Triglycerides Cholesterol LDL Cholesterol Direct HDL Cholesterol 25-OH Vitamin D Total PTH Intact Urine pH Urine WBC (Auto) Urine Creatinine Urine Total Protein Fluid Total Protein Vancomycin Trough Rheumatoid Factor Complement C4 Miscellaneous Test Crossmatch 10/26/16 10/26/16 10/26/16 12:12 17:29 23:42 WBC RBC Hgb Hct MCV MCH MCHC RDW Plt Count Lymph % (Auto) [place] % (Auto) Lymph # [place] # Baso # Seg Neutrophils % Seg Neuts % (Manual) Lymphocytes % (Manual) Monocytes % (Manual) Eosinophils % (Manual) Basophils % (Manual) Nucleated RBC % Seg Neutrophils # Seg Neutrophils # Man Lymphocytes # (Manual) Monocytes # (Manual) Eosinophils # (Manual) Basophils # (Manual) PT INR Fibrinogen dRVVT Confirm Interp Factor V Activity POC ABG pH POC ABG pCO2 POC ABG pO2 ABG pO2 ABG HCO3 ABG Base Excess ABG Hemoglobin Oxyhemoglobin Sodium Potassium Chloride Carbon Dioxide BUN Creatinine Glucose POC Glucose 126 H 161 H 118 H Lactic Acid Calcium Ionized Calcium Phosphorus Magnesium Direct Bilirubin AST ALT Alkaline Phosphatase Lactate Dehydrogenase Troponin T C-Reactive Protein Total Protein Albumin Prealbumin Triglycerides Cholesterol LDL Cholesterol Direct HDL Cholesterol 25-OH Vitamin D Total PTH Intact Urine pH Urine WBC (Auto) Urine Creatinine Urine Total Protein Fluid Total Protein Vancomycin Trough Rheumatoid Factor Complement C4 Miscellaneous Test Crossmatch 10/27/16 10/27/16 10/27/16 05:03 06:30 06:30 WBC 13.9 H RBC 3.09 L Hgb 9.2 L Hct 27.5 L MCV MCH MCHC RDW 17.0 H Plt Count Lymph % (Auto) [place] % (Auto) Lymph # [place] # Baso # Seg Neutrophils % Seg Neuts % (Manual) 78.0 H Lymphocytes % (Manual) Monocytes % (Manual) Eosinophils % (Manual) Basophils % (Manual) Nucleated RBC % 2.0 H Seg Neutrophils # Seg Neutrophils # Man 10.8 H Lymphocytes # (Manual) Monocytes # (Manual) 1.0 H Eosinophils # (Manual) Basophils # (Manual) PT INR Fibrinogen dRVVT Confirm Interp Factor V Activity POC ABG pH POC ABG pCO2 POC ABG pO2 ABG pO2 ABG HCO3 ABG Base Excess ABG Hemoglobin Oxyhemoglobin Sodium Potassium Chloride Carbon Dioxide BUN 40 H Creatinine 1.5 H Glucose 135 H POC Glucose 107 H Lactic Acid Calcium 8.3 L Ionized Calcium Phosphorus 1.30 L D Magnesium Direct Bilirubin AST ALT Alkaline Phosphatase Lactate Dehydrogenase Troponin T C-Reactive Protein Total Protein Albumin Prealbumin Triglycerides Cholesterol LDL Cholesterol Direct HDL Cholesterol 25-OH Vitamin D Total PTH Intact Urine pH Urine WBC (Auto) Urine Creatinine Urine Total Protein Fluid Total Protein Vancomycin Trough Rheumatoid Factor Complement C4 Miscellaneous Test Crossmatch 10/27/16 10/27/16 10/27/16 13:27 18:07 23:40 WBC RBC Hgb Hct MCV MCH MCHC RDW Plt Count Lymph % (Auto) [place] % (Auto) Lymph # [place] # Baso # Seg Neutrophils % Seg Neuts % (Manual) Lymphocytes % (Manual) Monocytes % (Manual) Eosinophils % (Manual) Basophils % (Manual) Nucleated RBC % Seg Neutrophils # Seg Neutrophils # Man Lymphocytes # (Manual) Monocytes # (Manual) Eosinophils # (Manual) Basophils # (Manual) PT INR Fibrinogen dRVVT Confirm Interp Factor V Activity POC ABG pH POC ABG pCO2 POC ABG pO2 ABG pO2 ABG HCO3 ABG Base Excess ABG Hemoglobin Oxyhemoglobin Sodium Potassium Chloride Carbon Dioxide BUN Creatinine Glucose POC Glucose 117 H 121 H 118 H Lactic Acid Calcium Ionized Calcium Phosphorus Magnesium Direct Bilirubin AST ALT Alkaline Phosphatase Lactate Dehydrogenase Troponin T C-Reactive Protein Total Protein Albumin Prealbumin Triglycerides Cholesterol LDL Cholesterol Direct HDL Cholesterol 25-OH Vitamin D Total PTH Intact Urine pH Urine WBC (Auto) Urine Creatinine Urine Total Protein Fluid Total Protein Vancomycin Trough Rheumatoid Factor Complement C4 Miscellaneous Test Crossmatch 10/28/16 10/28/16 10/28/16 05:48 06:45 06:45 WBC 14.7 H RBC 3.05 L Hgb 9.0 L Hct 26.9 L MCV MCH MCHC RDW 16.8 H Plt Count Lymph % (Auto) 8.2 L [place] % (Auto) 8.4 H Lymph # [place] # 1.2 H Baso # Seg Neutrophils % 81.9 H Seg Neuts % (Manual) Lymphocytes % (Manual) Monocytes % (Manual) Eosinophils % (Manual) Basophils % (Manual) Nucleated RBC % Seg Neutrophils # 12.1 H Seg Neutrophils # Man Lymphocytes # (Manual) Monocytes # (Manual) Eosinophils # (Manual) Basophils # (Manual) PT INR Fibrinogen dRVVT Confirm Interp Factor V Activity POC ABG pH POC ABG pCO2 POC ABG pO2 ABG pO2 ABG HCO3 ABG Base Excess ABG Hemoglobin Oxyhemoglobin Sodium Potassium Chloride Carbon Dioxide BUN 60 H Creatinine 1.9 H Glucose 120 H POC Glucose 114 H Lactic Acid Calcium Ionized Calcium Phosphorus Magnesium Direct Bilirubin AST ALT Alkaline Phosphatase Lactate Dehydrogenase Troponin T C-Reactive Protein Total Protein Albumin Prealbumin Triglycerides Cholesterol LDL Cholesterol Direct HDL Cholesterol 25-OH Vitamin D Total PTH Intact Urine pH Urine WBC (Auto) Urine Creatinine Urine Total Protein Fluid Total Protein Vancomycin Trough Rheumatoid Factor Complement C4 Miscellaneous Test Crossmatch 10/28/16 10/28/16 10/29/16 17:08 23:50 05:10 WBC RBC Hgb Hct MCV MCH MCHC RDW Plt Count Lymph % (Auto) [place] % (Auto) Lymph # [place] # Baso # Seg Neutrophils % Seg Neuts % (Manual) Lymphocytes % (Manual) Monocytes % (Manual) Eosinophils % (Manual) Basophils % (Manual) Nucleated RBC % Seg Neutrophils # Seg Neutrophils # Man Lymphocytes # (Manual) Monocytes # (Manual) Eosinophils # (Manual) Basophils # (Manual) PT INR Fibrinogen dRVVT Confirm Interp Factor V Activity POC ABG pH POC ABG pCO2 POC ABG pO2 ABG pO2 ABG HCO3 ABG Base Excess ABG Hemoglobin Oxyhemoglobin Sodium Potassium Chloride Carbon Dioxide BUN Creatinine Glucose POC Glucose 109 H 110 H 124 H Lactic Acid Calcium Ionized Calcium Phosphorus Magnesium Direct Bilirubin AST ALT Alkaline Phosphatase Lactate Dehydrogenase Troponin T C-Reactive Protein Total Protein Albumin Prealbumin Triglycerides Cholesterol LDL Cholesterol Direct HDL Cholesterol 25-OH Vitamin D Total PTH Intact Urine pH Urine WBC (Auto) Urine Creatinine Urine Total Protein Fluid Total Protein Vancomycin Trough Rheumatoid Factor Complement C4 Miscellaneous Test Crossmatch 10/29/16 10/29/16 10/29/16 07:45 07:45 12:19 WBC 14.7 H RBC 3.15 L Hgb 9.3 L Hct 28.9 L MCV MCH MCHC RDW 17.0 H Plt Count Lymph % (Auto) 11.9 L [place] % (Auto) 8.6 H Lymph # [place] # 1.3 H Baso # Seg Neutrophils % 78.1 H Seg Neuts % (Manual) Lymphocytes % (Manual) Monocytes % (Manual) Eosinophils % (Manual) Basophils % (Manual) Nucleated RBC % Seg Neutrophils # 11.4 H Seg Neutrophils # Man Lymphocytes # (Manual) Monocytes # (Manual) Eosinophils # (Manual) Basophils # (Manual) PT INR Fibrinogen dRVVT Confirm Interp Factor V Activity POC ABG pH POC ABG pCO2 POC ABG pO2 ABG pO2 ABG HCO3 ABG Base Excess ABG Hemoglobin Oxyhemoglobin Sodium Potassium 5.1 H Chloride Carbon Dioxide 19 L BUN 78 H Creatinine 2.2 H Glucose 116 H POC Glucose 118 H Lactic Acid Calcium Ionized Calcium Phosphorus Magnesium Direct Bilirubin AST ALT Alkaline Phosphatase Lactate Dehydrogenase Troponin T C-Reactive Protein Total Protein Albumin Prealbumin Triglycerides Cholesterol LDL Cholesterol Direct HDL Cholesterol 25-OH Vitamin D Total PTH Intact Urine pH Urine WBC (Auto) Urine Creatinine Urine Total Protein Fluid Total Protein Vancomycin Trough Rheumatoid Factor Complement C4 Miscellaneous Test Crossmatch 10/29/16 10/30/16 10/30/16 17:49 01:52 03:28 WBC RBC Hgb Hct MCV MCH MCHC RDW Plt Count Lymph % (Auto) [place] % (Auto) Lymph # [place] # Baso # Seg Neutrophils % Seg Neuts % (Manual) Lymphocytes % (Manual) Monocytes % (Manual) Eosinophils % (Manual) Basophils % (Manual) Nucleated RBC % Seg Neutrophils # Seg Neutrophils # Man Lymphocytes # (Manual) Monocytes # (Manual) Eosinophils # (Manual) Basophils # (Manual) PT INR Fibrinogen dRVVT Confirm Interp Factor V Activity POC ABG pH POC ABG pCO2 POC ABG pO2 ABG pO2 ABG HCO3 ABG Base Excess ABG Hemoglobin Oxyhemoglobin Sodium Potassium 5.4 H Chloride 97.5 L Carbon Dioxide 19 L BUN 90 H Creatinine 2.5 H Glucose POC Glucose 120 H 129 H Lactic Acid Calcium Ionized Calcium Phosphorus 5.20 H Magnesium Direct Bilirubin AST ALT Alkaline Phosphatase Lactate Dehydrogenase Troponin T C-Reactive Protein Total Protein Albumin Prealbumin Triglycerides Cholesterol LDL Cholesterol Direct HDL Cholesterol 25-OH Vitamin D Total PTH Intact Urine pH Urine WBC (Auto) Urine Creatinine Urine Total Protein Fluid Total Protein Vancomycin Trough Rheumatoid Factor Complement C4 Miscellaneous Test Crossmatch 10/30/16 10/30/16 10/30/16 03:28 08:19 08:19 WBC 11.6 H 15.9 H RBC 2.75 L 2.82 L Hgb 7.9 L 8.3 L Hct 24.2 L 25.2 L MCV MCH MCHC RDW 16.7 H 17.2 H Plt Count Lymph % (Auto) [place] % (Auto) 9.8 H Lymph # [place] # 1.1 H Baso # Seg Neutrophils % 74.2 H Seg Neuts % (Manual) Lymphocytes % (Manual) Monocytes % (Manual) Eosinophils % (Manual) Basophils % (Manual) Nucleated RBC % Seg Neutrophils # 8.6 H Seg Neutrophils # Man Lymphocytes # (Manual) Monocytes # (Manual) Eosinophils # (Manual) Basophils # (Manual) PT INR Fibrinogen dRVVT Confirm Interp Factor V Activity POC ABG pH POC ABG pCO2 POC ABG pO2 ABG pO2 ABG HCO3 ABG Base Excess ABG Hemoglobin Oxyhemoglobin Sodium Potassium 5.3 H Chloride 97.4 L Carbon Dioxide 19 L BUN 93 H Creatinine 2.6 H Glucose POC Glucose Lactic Acid Calcium Ionized Calcium Phosphorus Magnesium Direct Bilirubin AST ALT Alkaline Phosphatase Lactate Dehydrogenase Troponin T C-Reactive Protein Total Protein Albumin Prealbumin Triglycerides Cholesterol LDL Cholesterol Direct HDL Cholesterol 25-OH Vitamin D Total PTH Intact Urine pH Urine WBC (Auto) Urine Creatinine Urine Total Protein Fluid Total Protein Vancomycin Trough Rheumatoid Factor Complement C4 Miscellaneous Test Crossmatch 10/30/16 10/30/16 10/31/16 17:11 23:56 00:40 WBC RBC Hgb Hct MCV MCH MCHC RDW Plt Count Lymph % (Auto) [place] % (Auto) Lymph # [place] # Baso # Seg Neutrophils % Seg Neuts % (Manual) Lymphocytes % (Manual) Monocytes % (Manual) Eosinophils % (Manual) Basophils % (Manual) Nucleated RBC % Seg Neutrophils # Seg Neutrophils # Man Lymphocytes # (Manual) Monocytes # (Manual) Eosinophils # (Manual) Basophils # (Manual) PT INR Fibrinogen dRVVT Confirm Interp Factor V Activity POC ABG pH POC ABG pCO2 POC ABG pO2 ABG pO2 ABG HCO3 ABG Base Excess ABG Hemoglobin Oxyhemoglobin Sodium Potassium Chloride Carbon Dioxide BUN Creatinine Glucose POC Glucose 106 H 117 H 120 H Lactic Acid Calcium Ionized Calcium Phosphorus Magnesium Direct Bilirubin AST ALT Alkaline Phosphatase Lactate Dehydrogenase Troponin T C-Reactive Protein Total Protein Albumin Prealbumin Triglycerides Cholesterol LDL Cholesterol Direct HDL Cholesterol 25-OH Vitamin D Total PTH Intact Urine pH Urine WBC (Auto) Urine Creatinine Urine Total Protein Fluid Total Protein Vancomycin Trough Rheumatoid Factor Complement C4 Miscellaneous Test Crossmatch 10/31/16 10/31/16 10/31/16 05:43 07:15 07:15 WBC 12.1 H RBC 2.63 L Hgb 7.7 L Hct 23.3 L MCV MCH MCHC RDW 16.7 H Plt Count Lymph % (Auto) 11.7 L [place] % (Auto) 7.7 H Lymph # [place] # 0.9 H Baso # Seg Neutrophils % 78.0 H Seg Neuts % (Manual) Lymphocytes % (Manual) Monocytes % (Manual) Eosinophils % (Manual) Basophils % (Manual) Nucleated RBC % Seg Neutrophils # 9.4 H Seg Neutrophils # Man Lymphocytes # (Manual) Monocytes # (Manual) Eosinophils # (Manual) Basophils # (Manual) PT INR Fibrinogen dRVVT Confirm Interp Factor V Activity POC ABG pH POC ABG pCO2 POC ABG pO2 ABG pO2 ABG HCO3 ABG Base Excess ABG Hemoglobin Oxyhemoglobin Sodium Potassium Chloride 96.4 L Carbon Dioxide 21 L BUN 99 H Creatinine 2.6 H Glucose 144 H POC Glucose 125 H Lactic Acid Calcium Ionized Calcium Phosphorus 4.80 H Magnesium Direct Bilirubin AST ALT Alkaline Phosphatase Lactate Dehydrogenase Troponin T C-Reactive Protein Total Protein Albumin Prealbumin Triglycerides Cholesterol LDL Cholesterol Direct HDL Cholesterol 25-OH Vitamin D Total PTH Intact Urine pH Urine WBC (Auto) Urine Creatinine Urine Total Protein Fluid Total Protein Vancomycin Trough Rheumatoid Factor Complement C4 Miscellaneous Test Crossmatch 10/31/16 10/31/16 11/01/16 11:46 18:34 00:20 WBC RBC Hgb Hct MCV MCH MCHC RDW Plt Count Lymph % (Auto) [place] % (Auto) Lymph # [place] # Baso # Seg Neutrophils % Seg Neuts % (Manual) Lymphocytes % (Manual) Monocytes % (Manual) Eosinophils % (Manual) Basophils % (Manual) Nucleated RBC % Seg Neutrophils # Seg Neutrophils # Man Lymphocytes # (Manual) Monocytes # (Manual) Eosinophils # (Manual) Basophils # (Manual) PT INR Fibrinogen dRVVT Confirm Interp Factor V Activity POC ABG pH POC ABG pCO2 POC ABG pO2 ABG pO2 ABG HCO3 ABG Base Excess ABG Hemoglobin Oxyhemoglobin Sodium Potassium Chloride Carbon Dioxide BUN Creatinine Glucose POC Glucose 159 H 140 H 132 H Lactic Acid Calcium Ionized Calcium Phosphorus Magnesium Direct Bilirubin AST ALT Alkaline Phosphatase Lactate Dehydrogenase Troponin T C-Reactive Protein Total Protein Albumin Prealbumin Triglycerides Cholesterol LDL Cholesterol Direct HDL Cholesterol 25-OH Vitamin D Total PTH Intact Urine pH Urine WBC (Auto) Urine Creatinine Urine Total Protein Fluid Total Protein Vancomycin Trough Rheumatoid Factor Complement C4 Miscellaneous Test Crossmatch 11/01/16 11/01/16 11/01/16 04:55 04:55 06:11 WBC 11.2 H RBC 2.68 L Hgb 7.5 L Hct 23.7 L MCV MCH MCHC RDW 16.1 H Plt Count Lymph % (Auto) [place] % (Auto) 9.8 H Lymph # [place] # 1.1 H Baso # Seg Neutrophils % 70.8 H Seg Neuts % (Manual) Lymphocytes % (Manual) Monocytes % (Manual) Eosinophils % (Manual) Basophils % (Manual) Nucleated RBC % Seg Neutrophils # 7.9 H Seg Neutrophils # Man Lymphocytes # (Manual) Monocytes # (Manual) Eosinophils # (Manual) Basophils # (Manual) PT INR Fibrinogen dRVVT Confirm Interp Factor V Activity POC ABG pH POC ABG pCO2 POC ABG pO2 ABG pO2 ABG HCO3 ABG Base Excess ABG Hemoglobin Oxyhemoglobin Sodium Potassium 3.3 L D Chloride Carbon Dioxide BUN 61 H Creatinine 1.9 H Glucose 114 H POC Glucose 115 H Lactic Acid Calcium Ionized Calcium Phosphorus 1.80 L D Magnesium Direct Bilirubin AST ALT Alkaline Phosphatase Lactate Dehydrogenase Troponin T C-Reactive Protein Total Protein Albumin Prealbumin Triglycerides Cholesterol LDL Cholesterol Direct HDL Cholesterol 25-OH Vitamin D Total PTH Intact Urine pH Urine WBC (Auto) Urine Creatinine Urine Total Protein Fluid Total Protein Vancomycin Trough Rheumatoid Factor Complement C4 Miscellaneous Test Crossmatch 11/01/16 11/01/16 11/01/16 12:29 18:23 23:58 WBC RBC Hgb Hct MCV MCH MCHC RDW Plt Count Lymph % (Auto) [place] % (Auto) Lymph # [place] # Baso # Seg Neutrophils % Seg Neuts % (Manual) Lymphocytes % (Manual) Monocytes % (Manual) Eosinophils % (Manual) Basophils % (Manual) Nucleated RBC % Seg Neutrophils # Seg Neutrophils # Man Lymphocytes # (Manual) Monocytes # (Manual) Eosinophils # (Manual) Basophils # (Manual) PT INR Fibrinogen dRVVT Confirm Interp Factor V Activity POC ABG pH POC ABG pCO2 POC ABG pO2 ABG pO2 ABG HCO3 ABG Base Excess ABG Hemoglobin Oxyhemoglobin Sodium Potassium Chloride Carbon Dioxide BUN Creatinine Glucose POC Glucose 142 H 143 H 128 H Lactic Acid Calcium Ionized Calcium Phosphorus Magnesium Direct Bilirubin AST ALT Alkaline Phosphatase Lactate Dehydrogenase Troponin T C-Reactive Protein Total Protein Albumin Prealbumin Triglycerides Cholesterol LDL Cholesterol Direct HDL Cholesterol 25-OH Vitamin D Total PTH Intact Urine pH Urine WBC (Auto) Urine Creatinine Urine Total Protein Fluid Total Protein Vancomycin Trough Rheumatoid Factor Complement C4 Miscellaneous Test Crossmatch 11/02/16 11/02/16 11/02/16 04:16 05:29 11:58 WBC RBC Hgb Hct MCV MCH MCHC RDW Plt Count Lymph % (Auto) [place] % (Auto) Lymph # [place] # Baso # Seg Neutrophils % Seg Neuts % (Manual) Lymphocytes % (Manual) Monocytes % (Manual) Eosinophils % (Manual) Basophils % (Manual) Nucleated RBC % Seg Neutrophils # Seg Neutrophils # Man Lymphocytes # (Manual) Monocytes # (Manual) Eosinophils # (Manual) Basophils # (Manual) PT INR Fibrinogen dRVVT Confirm Interp Factor V Activity POC ABG pH POC ABG pCO2 POC ABG pO2 ABG pO2 ABG HCO3 ABG Base Excess ABG Hemoglobin Oxyhemoglobin Sodium Potassium 3.1 L Chloride Carbon Dioxide BUN 73 H Creatinine 2.3 H Glucose 112 H POC Glucose 135 H 149 H Lactic Acid Calcium Ionized Calcium Phosphorus Magnesium Direct Bilirubin AST ALT Alkaline Phosphatase Lactate Dehydrogenase Troponin T C-Reactive Protein Total Protein Albumin Prealbumin Triglycerides Cholesterol LDL Cholesterol Direct HDL Cholesterol 25-OH Vitamin D Total PTH Intact Urine pH Urine WBC (Auto) Urine Creatinine Urine Total Protein Fluid Total Protein Vancomycin Trough Rheumatoid Factor Complement C4 Miscellaneous Test Crossmatch 11/02/16 11/02/16 11/03/16 17:42 22:54 06:00 WBC RBC Hgb Hct MCV MCH MCHC RDW Plt Count Lymph % (Auto) [place] % (Auto) Lymph # [place] # Baso # Seg Neutrophils % Seg Neuts % (Manual) Lymphocytes % (Manual) Monocytes % (Manual) Eosinophils % (Manual) Basophils % (Manual) Nucleated RBC % Seg Neutrophils # Seg Neutrophils # Man Lymphocytes # (Manual) Monocytes # (Manual) Eosinophils # (Manual) Basophils # (Manual) PT INR Fibrinogen dRVVT Confirm Interp Factor V Activity POC ABG pH POC ABG pCO2 POC ABG pO2 ABG pO2 ABG HCO3 ABG Base Excess ABG Hemoglobin Oxyhemoglobin Sodium Potassium Chloride 96.7 L Carbon Dioxide BUN 41 H Creatinine 1.5 H Glucose 145 H POC Glucose 182 H 115 H Lactic Acid Calcium Ionized Calcium Phosphorus 1.60 L D Magnesium 1.50 L Direct Bilirubin AST ALT Alkaline Phosphatase Lactate Dehydrogenase Troponin T C-Reactive Protein Total Protein Albumin Prealbumin Triglycerides Cholesterol LDL Cholesterol Direct HDL Cholesterol 25-OH Vitamin D Total PTH Intact Urine pH Urine WBC (Auto) Urine Creatinine Urine Total Protein Fluid Total Protein Vancomycin Trough Rheumatoid Factor Complement C4 Miscellaneous Test Crossmatch 11/03/16 11/03/16 11/03/16 11:53 17:45 23:37 WBC RBC Hgb Hct MCV MCH MCHC RDW Plt Count Lymph % (Auto) [place] % (Auto) Lymph # [place] # Baso # Seg Neutrophils % Seg Neuts % (Manual) Lymphocytes % (Manual) Monocytes % (Manual) Eosinophils % (Manual) Basophils % (Manual) Nucleated RBC % Seg Neutrophils # Seg Neutrophils # Man Lymphocytes # (Manual) Monocytes # (Manual) Eosinophils # (Manual) Basophils # (Manual) PT INR Fibrinogen dRVVT Confirm Interp Factor V Activity POC ABG pH POC ABG pCO2 POC ABG pO2 ABG pO2 ABG HCO3 ABG Base Excess ABG Hemoglobin Oxyhemoglobin Sodium Potassium Chloride Carbon Dioxide BUN Creatinine Glucose POC Glucose 131 H 134 H 113 H Lactic Acid Calcium Ionized Calcium Phosphorus Magnesium Direct Bilirubin AST ALT Alkaline Phosphatase Lactate Dehydrogenase Troponin T C-Reactive Protein Total Protein Albumin Prealbumin Triglycerides Cholesterol LDL Cholesterol Direct HDL Cholesterol 25-OH Vitamin D Total PTH Intact Urine pH Urine WBC (Auto) Urine Creatinine Urine Total Protein Fluid Total Protein Vancomycin Trough Rheumatoid Factor Complement C4 Miscellaneous Test Crossmatch 11/04/16 11/04/16 11/04/16 05:41 06:00 12:10 WBC RBC Hgb Hct MCV MCH MCHC RDW Plt Count Lymph % (Auto) [place] % (Auto) Lymph # [place] # Baso # Seg Neutrophils % Seg Neuts % (Manual) Lymphocytes % (Manual) Monocytes % (Manual) Eosinophils % (Manual) Basophils % (Manual) Nucleated RBC % Seg Neutrophils # Seg Neutrophils # Man Lymphocytes # (Manual) Monocytes # (Manual) Eosinophils # (Manual) Basophils # (Manual) PT INR Fibrinogen dRVVT Confirm Interp Factor V Activity POC ABG pH POC ABG pCO2 POC ABG pO2 ABG pO2 ABG HCO3 ABG Base Excess ABG Hemoglobin Oxyhemoglobin Sodium Potassium Chloride 96.7 L Carbon Dioxide BUN 52 H Creatinine 1.9 H Glucose 126 H POC Glucose 137 H 191 H Lactic Acid Calcium Ionized Calcium Phosphorus Magnesium Direct Bilirubin AST ALT Alkaline Phosphatase Lactate Dehydrogenase Troponin T C-Reactive Protein Total Protein Albumin Prealbumin Triglycerides Cholesterol LDL Cholesterol Direct HDL Cholesterol 25-OH Vitamin D Total PTH Intact Urine pH Urine WBC (Auto) Urine Creatinine Urine Total Protein Fluid Total Protein Vancomycin Trough Rheumatoid Factor Complement C4 Miscellaneous Test Crossmatch 0911/05/16 11/05/16 22:57 03:10 05:10 WBC RBC Hgb Hct MCV MCH MCHC RDW Plt Count Lymph % (Auto) [place] % (Auto) Lymph # [place] # Baso # Seg Neutrophils % Seg Neuts % (Manual) Lymphocytes % (Manual) Monocytes % (Manual) Eosinophils % (Manual) Basophils % (Manual) Nucleated RBC % Seg Neutrophils # Seg Neutrophils # Man Lymphocytes # (Manual) Monocytes # (Manual) Eosinophils # (Manual) Basophils # (Manual) PT INR Fibrinogen dRVVT Confirm Interp Factor V Activity POC ABG pH POC ABG pCO2 POC ABG pO2 ABG pO2 ABG HCO3 ABG Base Excess ABG Hemoglobin Oxyhemoglobin Sodium 136 L Potassium Chloride 97.2 L Carbon Dioxide BUN 32 H Creatinine 1.3 H Glucose 123 H POC Glucose 125 H 108 H Lactic Acid Calcium 7.8 L Ionized Calcium Phosphorus Magnesium Direct Bilirubin AST ALT Alkaline Phosphatase Lactate Dehydrogenase Troponin T C-Reactive Protein Total Protein Albumin Prealbumin Triglycerides Cholesterol LDL Cholesterol Direct HDL Cholesterol 25-OH Vitamin D Total PTH Intact Urine pH Urine WBC (Auto) Urine Creatinine Urine Total Protein Fluid Total Protein Vancomycin Trough Rheumatoid Factor Complement C4 Miscellaneous Test Crossmatch 11/05/16 11/05/16 11/05/16 12:23 13:09 13:25 WBC RBC Hgb Hct MCV MCH MCHC RDW Plt Count Lymph % (Auto) [place] % (Auto) Lymph # [place] # Baso # Seg Neutrophils % Seg Neuts % (Manual) Lymphocytes % (Manual) Monocytes % (Manual) Eosinophils % (Manual) Basophils % (Manual) Nucleated RBC % Seg Neutrophils # Seg Neutrophils # Man Lymphocytes # (Manual) Monocytes # (Manual) Eosinophils # (Manual) Basophils # (Manual) PT INR Fibrinogen dRVVT Confirm Interp Factor V Activity POC ABG pH POC ABG pCO2 POC ABG pO2 ABG pO2 ABG HCO3 ABG Base Excess ABG Hemoglobin Oxyhemoglobin Sodium Potassium Chloride Carbon Dioxide BUN Creatinine Glucose POC Glucose 124 H Lactic Acid Calcium Ionized Calcium Phosphorus Magnesium Direct Bilirubin AST ALT Alkaline Phosphatase Lactate Dehydrogenase Troponin T C-Reactive Protein 11.40 H Total Protein Albumin Prealbumin Triglycerides Cholesterol LDL Cholesterol Direct HDL Cholesterol 25-OH Vitamin D Total PTH Intact Urine pH 9.0 H Urine WBC (Auto) Urine Creatinine Urine Total Protein Fluid Total Protein Vancomycin Trough Rheumatoid Factor Complement C4 Miscellaneous Test Crossmatch 11/05/16 11/05/1611/05/17 13:25 17:54 23:42 WBC RBC Hgb Hct MCV MCH MCHC RDW Plt Count Lymph % (Auto) [place] % (Auto) Lymph # [place] # Baso # Seg Neutrophils % Seg Neuts % (Manual) Lymphocytes % (Manual) Monocytes % (Manual) Eosinophils % (Manual) Basophils % (Manual) Nucleated RBC % Seg Neutrophils # Seg Neutrophils # Man Lymphocytes # (Manual) Monocytes # (Manual) Eosinophils # (Manual) Basophils # (Manual) PT INR Fibrinogen dRVVT Confirm Interp Factor V Activity POC ABG pH POC ABG pCO2 POC ABG pO2 ABG pO2 ABG HCO3 ABG Base Excess ABG Hemoglobin Oxyhemoglobin Sodium Potassium Chloride Carbon Dioxide BUN Creatinine Glucose POC Glucose 114 H 134 H Lactic Acid Calcium Ionized Calcium Phosphorus Magnesium Direct Bilirubin AST ALT Alkaline Phosphatase Lactate Dehydrogenase Troponin T C-Reactive Protein Total Protein Albumin Prealbumin Triglycerides Cholesterol LDL Cholesterol Direct HDL Cholesterol 25-OH Vitamin D Total PTH Intact Urine pH Urine WBC (Auto) Urine Creatinine Urine Total Protein Fluid Total Protein Vancomycin Trough Rheumatoid Factor Complement C4 Miscellaneous Test Flexitest 1 H Crossmatch 11/06/16 11/06/16 11/06/16 04:56 06:25 06:25 WBC RBC 2.50 L Hgb 7.3 L Hct 22.5 L MCV MCH MCHC RDW 16.9 H Plt Count Lymph % (Auto) [place] % (Auto) 10.5 H Lymph # [place] # 1.1 H Baso # Seg Neutrophils % Seg Neuts % (Manual) Lymphocytes % (Manual) Monocytes % (Manual) Eosinophils % (Manual) Basophils % (Manual) Nucleated RBC % Seg Neutrophils # Seg Neutrophils # Man Lymphocytes # (Manual) Monocytes # (Manual) Eosinophils # (Manual) Basophils # (Manual) PT INR Fibrinogen dRVVT Confirm Interp Factor V Activity POC ABG pH POC ABG pCO2 POC ABG pO2 ABG pO2 ABG HCO3 ABG Base Excess ABG Hemoglobin Oxyhemoglobin Sodium Potassium 5.1 H Chloride 95.9 L Carbon Dioxide BUN 52 H Creatinine 1.8 H Glucose 117 H POC Glucose 120 H Lactic Acid Calcium Ionized Calcium Phosphorus Magnesium Direct Bilirubin AST 103 H ALT 77 H Alkaline Phosphatase 285 H Lactate Dehydrogenase Troponin T C-Reactive Protein Total Protein 6.2 L Albumin 1.8 L Prealbumin 0.180 L Triglycerides Cholesterol LDL Cholesterol Direct HDL Cholesterol 25-OH Vitamin D Total PTH Intact Urine pH Urine WBC (Auto) Urine Creatinine Urine Total Protein Fluid Total Protein Vancomycin Trough Rheumatoid Factor Complement C4 Miscellaneous Test Crossmatch 11/06/16 11/06/16 11/06/16 11:56 17:14 23:52 WBC RBC Hgb Hct MCV MCH MCHC RDW Plt Count Lymph % (Auto) [place] % (Auto) Lymph # [place] # Baso # Seg Neutrophils % Seg Neuts % (Manual) Lymphocytes % (Manual) Monocytes % (Manual) Eosinophils % (Manual) Basophils % (Manual) Nucleated RBC % Seg Neutrophils # Seg Neutrophils # Man Lymphocytes # (Manual) Monocytes # (Manual) Eosinophils # (Manual) Basophils # (Manual) PT INR Fibrinogen dRVVT Confirm Interp Factor V Activity POC ABG pH POC ABG pCO2 POC ABG pO2 ABG pO2 ABG HCO3 ABG Base Excess ABG Hemoglobin Oxyhemoglobin Sodium Potassium Chloride Carbon Dioxide BUN Creatinine Glucose POC Glucose 141 H 125 H 130 H Lactic Acid Calcium Ionized Calcium Phosphorus Magnesium Direct Bilirubin AST ALT Alkaline Phosphatase Lactate Dehydrogenase Troponin T C-Reactive Protein Total Protein Albumin Prealbumin Triglycerides Cholesterol LDL Cholesterol Direct HDL Cholesterol 25-OH Vitamin D Total PTH Intact Urine pH Urine WBC (Auto) Urine Creatinine Urine Total Protein Fluid Total Protein Vancomycin Trough Rheumatoid Factor Complement C4 Miscellaneous Test Crossmatch 11/07/16 11/07/16 11/07/16 06:30 06:30 09:37 WBC RBC 2.18 L Hgb 6.3 L Hct 19.7 L* MCV MCH MCHC RDW 16.8 H Plt Count Lymph % (Auto) [place] % (Auto) 10.0 H Lymph # [place] # 1.0 H Baso # Seg Neutrophils % Seg Neuts % (Manual) Lymphocytes % (Manual) Monocytes % (Manual) Eosinophils % (Manual) Basophils % (Manual) Nucleated RBC % Seg Neutrophils # Seg Neutrophils # Man Lymphocytes # (Manual) Monocytes # (Manual) Eosinophils # (Manual) Basophils # (Manual) PT INR Fibrinogen dRVVT Confirm Interp Factor V Activity POC ABG pH POC ABG pCO2 POC ABG pO2 ABG pO2 ABG HCO3 ABG Base Excess ABG Hemoglobin Oxyhemoglobin Sodium 135 L Potassium Chloride 95.6 L Carbon Dioxide BUN 70 H Creatinine 2.0 H Glucose 126 H POC Glucose Lactic Acid Calcium Ionized Calcium Phosphorus Magnesium Direct Bilirubin AST ALT Alkaline Phosphatase Lactate Dehydrogenase Troponin T C-Reactive Protein Total Protein Albumin Prealbumin Triglycerides Cholesterol LDL Cholesterol Direct HDL Cholesterol 25-OH Vitamin D Total PTH Intact Urine pH Urine WBC (Auto) Urine Creatinine Urine Total Protein Fluid Total Protein Vancomycin Trough Rheumatoid Factor Complement C4 Miscellaneous Test Crossmatch See Detail 11/07/16 11/07/16 11/07/16 12:52 18:51 21:26 WBC RBC Hgb Hct MCV MCH MCHC RDW Plt Count Lymph % (Auto) [place] % (Auto) Lymph # [place] # Baso # Seg Neutrophils % Seg Neuts % (Manual) Lymphocytes % (Manual) Monocytes % (Manual) Eosinophils % (Manual) Basophils % (Manual) Nucleated RBC % Seg Neutrophils # Seg Neutrophils # Man Lymphocytes # (Manual) Monocytes # (Manual) Eosinophils # (Manual) Basophils # (Manual) PT INR Fibrinogen dRVVT Confirm Interp Factor V Activity POC ABG pH 7.523 H POC ABG pCO2 34.6 L POC ABG pO2 53 L ABG pO2 ABG HCO3 ABG Base Excess ABG Hemoglobin Oxyhemoglobin Sodium Potassium Chloride Carbon Dioxide BUN Creatinine Glucose POC Glucose 142 H 155 H Lactic Acid Calcium Ionized Calcium Phosphorus Magnesium Direct Bilirubin AST ALT Alkaline Phosphatase Lactate Dehydrogenase Troponin T C-Reactive Protein Total Protein Albumin Prealbumin Triglycerides Cholesterol LDL Cholesterol Direct HDL Cholesterol 25-OH Vitamin D Total PTH Intact Urine pH Urine WBC (Auto) Urine Creatinine Urine Total Protein Fluid Total Protein Vancomycin Trough Rheumatoid Factor Complement C4 Miscellaneous Test Crossmatch 11/07/16 11/08/16 11/08/16 21:34 13:03 23:37 WBC RBC 2.63 L Hgb 7.7 L Hct 22.7 L MCV MCH MCHC RDW 17.0 H Plt Count Lymph % (Auto) [place] % (Auto) Lymph # [place] # Baso # Seg Neutrophils % Seg Neuts % (Manual) Lymphocytes % (Manual) Monocytes % (Manual) Eosinophils % (Manual) Basophils % (Manual) Nucleated RBC % Seg Neutrophils # Seg Neutrophils # Man Lymphocytes # (Manual) Monocytes # (Manual) Eosinophils # (Manual) Basophils # (Manual) PT INR Fibrinogen dRVVT Confirm Interp Factor V Activity POC ABG pH 7.478 H POC ABG pCO2 34.0 L POC ABG pO2 50 L ABG pO2 ABG HCO3 ABG Base Excess ABG Hemoglobin Oxyhemoglobin Sodium Potassium Chloride Carbon Dioxide BUN Creatinine Glucose POC Glucose 113 H Lactic Acid Calcium Ionized Calcium Phosphorus Magnesium Direct Bilirubin AST ALT Alkaline Phosphatase Lactate Dehydrogenase Troponin T C-Reactive Protein Total Protein Albumin Prealbumin Triglycerides Cholesterol LDL Cholesterol Direct HDL Cholesterol 25-OH Vitamin D Total PTH Intact Urine pH Urine WBC (Auto) Urine Creatinine Urine Total Protein Fluid Total Protein Vancomycin Trough Rheumatoid Factor Complement C4 Miscellaneous Test Crossmatch 11/09/16 11/09/16 11/09/16 04:35 10:15 18:21 WBC RBC 2.68 L Hgb 7.8 L Hct 23.3 L MCV MCH MCHC RDW 17.0 H Plt Count Lymph % (Auto) [place] % (Auto) 12.1 H Lymph # [place] # 1.1 H Baso # Seg Neutrophils % Seg Neuts % (Manual) Lymphocytes % (Manual) Monocytes % (Manual) Eosinophils % (Manual) Basophils % (Manual) Nucleated RBC % Seg Neutrophils # Seg Neutrophils # Man Lymphocytes # (Manual) Monocytes # (Manual) Eosinophils # (Manual) Basophils # (Manual) PT INR Fibrinogen dRVVT Confirm Interp Factor V Activity POC ABG pH POC ABG pCO2 POC ABG pO2 ABG pO2 ABG HCO3 ABG Base Excess ABG Hemoglobin Oxyhemoglobin Sodium Potassium Chloride Carbon Dioxide BUN 51 H Creatinine 1.8 H Glucose POC Glucose 60 L Lactic Acid Calcium 8.3 L Ionized Calcium Phosphorus Magnesium Direct Bilirubin AST ALT Alkaline Phosphatase Lactate Dehydrogenase Troponin T C-Reactive Protein Total Protein Albumin Prealbumin Triglycerides Cholesterol LDL Cholesterol Direct HDL Cholesterol 25-OH Vitamin D Total PTH Intact Urine pH Urine WBC (Auto) Urine Creatinine Urine Total Protein Fluid Total Protein Vancomycin Trough Rheumatoid Factor Complement C4 Miscellaneous Test Crossmatch 11/09/16 11/10/16 11/10/16 18:55 07:00 11:51 WBC RBC Hgb Hct MCV MCH MCHC RDW Plt Count Lymph % (Auto) [place] % (Auto) Lymph # [place] # Baso # Seg Neutrophils % Seg Neuts % (Manual) Lymphocytes % (Manual) Monocytes % (Manual) Eosinophils % (Manual) Basophils % (Manual) Nucleated RBC % Seg Neutrophils # Seg Neutrophils # Man Lymphocytes # (Manual) Monocytes # (Manual) Eosinophils # (Manual) Basophils # (Manual) PT INR Fibrinogen dRVVT Confirm Interp Factor V Activity POC ABG pH POC ABG pCO2 POC ABG pO2 ABG pO2 ABG HCO3 ABG Base Excess ABG Hemoglobin Oxyhemoglobin Sodium Potassium 3.0 L D Chloride 97.4 L Carbon Dioxide BUN 28 H Creatinine 1.3 H Glucose POC Glucose 68 L 120 H Lactic Acid Calcium 7.8 L Ionized Calcium Phosphorus Magnesium Direct Bilirubin AST ALT Alkaline Phosphatase Lactate Dehydrogenase Troponin T C-Reactive Protein Total Protein Albumin Prealbumin Triglycerides Cholesterol LDL Cholesterol Direct HDL Cholesterol 25-OH Vitamin D Total PTH Intact Urine pH Urine WBC (Auto) Urine Creatinine Urine Total Protein Fluid Total Protein Vancomycin Trough Rheumatoid Factor Complement C4 Miscellaneous Test Crossmatch 11/10/16 11/11/16 11/11/16 14:20 06:59 06:59 WBC RBC 2.81 L Hgb 8.1 L Hct 24.4 L MCV MCH MCHC RDW 16.4 H Plt Count Lymph % (Auto) [place] % (Auto) 10.8 H Lymph # [place] # 1.0 H Baso # Seg Neutrophils % Seg Neuts % (Manual) Lymphocytes % (Manual) Monocytes % (Manual) Eosinophils % (Manual) Basophils % (Manual) Nucleated RBC % Seg Neutrophils # Seg Neutrophils # Man Lymphocytes # (Manual) Monocytes # (Manual) Eosinophils # (Manual) Basophils # (Manual) PT INR Fibrinogen dRVVT Confirm Interp Factor V Activity POC ABG pH POC ABG pCO2 POC ABG pO2 ABG pO2 ABG HCO3 ABG Base Excess ABG Hemoglobin Oxyhemoglobin Sodium Potassium Chloride Carbon Dioxide BUN Creatinine Glucose POC Glucose Lactic Acid Calcium Ionized Calcium Phosphorus Magnesium Direct Bilirubin AST ALT Alkaline Phosphatase Lactate Dehydrogenase 196 H Troponin T C-Reactive Protein Total Protein 6.1 L Albumin Prealbumin Triglycerides Cholesterol LDL Cholesterol Direct HDL Cholesterol 25-OH Vitamin D Total PTH Intact Urine pH Urine WBC (Auto) Urine Creatinine Urine Total Protein Fluid Total Protein < 3.0 L Vancomycin Trough Rheumatoid Factor Complement C4 Miscellaneous Test Crossmatch 11/11/16 11/11/16 11/12/16 06:59 09:50 04:00 WBC RBC Hgb Hct MCV MCH MCHC RDW Plt Count Lymph % (Auto) [place] % (Auto) Lymph # [place] # Baso # Seg Neutrophils % Seg Neuts % (Manual) Lymphocytes % (Manual) Monocytes % (Manual) Eosinophils % (Manual) Basophils % (Manual) Nucleated RBC % Seg Neutrophils # Seg Neutrophils # Man Lymphocytes # (Manual) Monocytes # (Manual) Eosinophils # (Manual) Basophils # (Manual) PT INR 1.18 H Fibrinogen dRVVT Confirm Interp Factor V Activity POC ABG pH POC ABG pCO2 POC ABG pO2 ABG pO2 ABG HCO3 ABG Base Excess ABG Hemoglobin Oxyhemoglobin Sodium 136 L 133 L Potassium Chloride 96.1 L 94.8 L Carbon Dioxide 21 L BUN 37 H 42 H Creatinine 1.8 H 2.0 H Glucose POC Glucose Lactic Acid Calcium Ionized Calcium Phosphorus Magnesium Direct Bilirubin AST ALT Alkaline Phosphatase Lactate Dehydrogenase Troponin T C-Reactive Protein Total Protein Albumin Prealbumin Triglycerides Cholesterol LDL Cholesterol Direct HDL Cholesterol 25-OH Vitamin D Total PTH Intact Urine pH Urine WBC (Auto) Urine Creatinine Urine Total Protein Fluid Total Protein Vancomycin Trough Rheumatoid Factor Complement C4 Miscellaneous Test Crossmatch 11/12/16 11/12/16 11/13/16 04:00 23:55 05:53 WBC RBC Hgb 8.9 L Hct 27.2 L MCV MCH MCHC RDW Plt Count Lymph % (Auto) [place] % (Auto) Lymph # [place] # Baso # Seg Neutrophils % Seg Neuts % (Manual) Lymphocytes % (Manual) Monocytes % (Manual) Eosinophils % (Manual) Basophils % (Manual) Nucleated RBC % Seg Neutrophils # Seg Neutrophils # Man Lymphocytes # (Manual) Monocytes # (Manual) Eosinophils # (Manual) Basophils # (Manual) PT INR Fibrinogen dRVVT Confirm Interp Factor V Activity POC ABG pH POC ABG pCO2 POC ABG pO2 ABG pO2 ABG HCO3 ABG Base Excess ABG Hemoglobin Oxyhemoglobin Sodium Potassium Chloride Carbon Dioxide BUN Creatinine Glucose POC Glucose 132 H 120 H Lactic Acid Calcium Ionized Calcium Phosphorus Magnesium Direct Bilirubin AST ALT Alkaline Phosphatase Lactate Dehydrogenase Troponin T C-Reactive Protein Total Protein Albumin Prealbumin Triglycerides Cholesterol LDL Cholesterol Direct HDL Cholesterol 25-OH Vitamin D Total PTH Intact Urine pH Urine WBC (Auto) Urine Creatinine Urine Total Protein Fluid Total Protein Vancomycin Trough Rheumatoid Factor Complement C4 Miscellaneous Test Crossmatch 11/13/16 11/13/16 11/13/16 11:43 17:09 23:41 WBC RBC Hgb Hct MCV MCH MCHC RDW Plt Count Lymph % (Auto) [place] % (Auto) Lymph # [place] # Baso # Seg Neutrophils % Seg Neuts % (Manual) Lymphocytes % (Manual) Monocytes % (Manual) Eosinophils % (Manual) Basophils % (Manual) Nucleated RBC % Seg Neutrophils # Seg Neutrophils # Man Lymphocytes # (Manual) Monocytes # (Manual) Eosinophils # (Manual) Basophils # (Manual) PT INR Fibrinogen dRVVT Confirm Interp Factor V Activity POC ABG pH POC ABG pCO2 POC ABG pO2 ABG pO2 ABG HCO3 ABG Base Excess ABG Hemoglobin Oxyhemoglobin Sodium Potassium Chloride Carbon Dioxide BUN Creatinine Glucose POC Glucose 114 H 113 H 108 H Lactic Acid Calcium Ionized Calcium Phosphorus Magnesium Direct Bilirubin AST ALT Alkaline Phosphatase Lactate Dehydrogenase Troponin T C-Reactive Protein Total Protein Albumin Prealbumin Triglycerides Cholesterol LDL Cholesterol Direct HDL Cholesterol 25-OH Vitamin D Total PTH Intact Urine pH Urine WBC (Auto) Urine Creatinine Urine Total Protein Fluid Total Protein Vancomycin Trough Rheumatoid Factor Complement C4 Miscellaneous Test Crossmatch 11/13/16 11/15/16 11/15/16 Unknown 00:37 03:30 WBC 11.2 H RBC 2.72 L Hgb 7.6 L Hct 23.4 L MCV MCH MCHC RDW 16.5 H Plt Count Lymph % (Auto) [place] % (Auto) Lymph # [place] # Baso # Seg Neutrophils % Seg Neuts % (Manual) Lymphocytes % (Manual) Monocytes % (Manual) Eosinophils % (Manual) Basophils % (Manual) Nucleated RBC % Seg Neutrophils # Seg Neutrophils # Man Lymphocytes # (Manual) Monocytes # (Manual) Eosinophils # (Manual) Basophils # (Manual) PT INR Fibrinogen dRVVT Confirm Interp Factor V Activity POC ABG pH POC ABG pCO2 POC ABG pO2 ABG pO2 ABG HCO3 ABG Base Excess ABG Hemoglobin Oxyhemoglobin Sodium 135 L Potassium Chloride 95.2 L Carbon Dioxide BUN 52 H Creatinine 2.2 H Glucose POC Glucose 108 H Lactic Acid Calcium Ionized Calcium Phosphorus Magnesium Direct Bilirubin AST ALT Alkaline Phosphatase Lactate Dehydrogenase Troponin T C-Reactive Protein Total Protein Albumin Prealbumin Triglycerides Cholesterol LDL Cholesterol Direct HDL Cholesterol 25-OH Vitamin D Total PTH Intact Urine pH Urine WBC (Auto) Urine Creatinine Urine Total Protein Fluid Total Protein Vancomycin Trough Rheumatoid Factor Complement C4 Miscellaneous Test Crossmatch 11/15/16 11/15/16 11/15/16 03:30 05:04 11:50 WBC RBC Hgb Hct MCV MCH MCHC RDW Plt Count Lymph % (Auto) [place] % (Auto) Lymph # [place] # Baso # Seg Neutrophils % Seg Neuts % (Manual) Lymphocytes % (Manual) Monocytes % (Manual) Eosinophils % (Manual) Basophils % (Manual) Nucleated RBC % Seg Neutrophils # Seg Neutrophils # Man Lymphocytes # (Manual) Monocytes # (Manual) Eosinophils # (Manual) Basophils # (Manual) PT INR Fibrinogen dRVVT Confirm Interp Factor V Activity POC ABG pH POC ABG pCO2 POC ABG pO2 ABG pO2 ABG HCO3 ABG Base Excess ABG Hemoglobin Oxyhemoglobin Sodium Potassium 3.4 L Chloride Carbon Dioxide BUN 25 H Creatinine 1.5 H Glucose 103 H POC Glucose 121 H 144 H Lactic Acid Calcium Ionized Calcium Phosphorus Magnesium Direct Bilirubin AST ALT Alkaline Phosphatase Lactate Dehydrogenase Troponin T C-Reactive Protein Total Protein Albumin Prealbumin Triglycerides Cholesterol LDL Cholesterol Direct HDL Cholesterol 25-OH Vitamin D Total PTH Intact Urine pH Urine WBC (Auto) Urine Creatinine Urine Total Protein Fluid Total Protein Vancomycin Trough Rheumatoid Factor Complement C4 Miscellaneous Test Crossmatch 11/15/16 11/15/16 11/16/16 21:28 23:20 11:44 WBC RBC Hgb Hct MCV MCH MCHC RDW Plt Count Lymph % (Auto) [place] % (Auto) Lymph # [place] # Baso # Seg Neutrophils % Seg Neuts % (Manual) Lymphocytes % (Manual) Monocytes % (Manual) Eosinophils % (Manual) Basophils % (Manual) Nucleated RBC % Seg Neutrophils # Seg Neutrophils # Man Lymphocytes # (Manual) Monocytes # (Manual) Eosinophils # (Manual) Basophils # (Manual) PT INR Fibrinogen dRVVT Confirm Interp Factor V Activity POC ABG pH 7.462 H POC ABG pCO2 POC ABG pO2 71 L ABG pO2 ABG HCO3 ABG Base Excess ABG Hemoglobin Oxyhemoglobin Sodium Potassium Chloride Carbon Dioxide BUN Creatinine Glucose POC Glucose 116 H 133 H Lactic Acid Calcium Ionized Calcium Phosphorus Magnesium Direct Bilirubin AST ALT Alkaline Phosphatase Lactate Dehydrogenase Troponin T C-Reactive Protein Total Protein Albumin Prealbumin Triglycerides Cholesterol LDL Cholesterol Direct HDL Cholesterol 25-OH Vitamin D Total PTH Intact Urine pH Urine WBC (Auto) Urine Creatinine Urine Total Protein Fluid Total Protein Vancomycin Trough Rheumatoid Factor Complement C4 Miscellaneous Test Crossmatch 11/16/16 11/16/16 11/16/16 12:20 17:05 23:35 WBC 11.7 H RBC 2.73 L Hgb 7.6 L Hct 23.7 L MCV MCH MCHC RDW 16.6 H Plt Count Lymph % (Auto) [place] % (Auto) Lymph # [place] # Baso # Seg Neutrophils % Seg Neuts % (Manual) Lymphocytes % (Manual) Monocytes % (Manual) Eosinophils % (Manual) Basophils % (Manual) Nucleated RBC % Seg Neutrophils # Seg Neutrophils # Man Lymphocytes # (Manual) Monocytes # (Manual) Eosinophils # (Manual) Basophils # (Manual) PT INR Fibrinogen dRVVT Confirm Interp Factor V Activity POC ABG pH POC ABG pCO2 POC ABG pO2 ABG pO2 ABG HCO3 ABG Base Excess ABG Hemoglobin Oxyhemoglobin Sodium Potassium Chloride Carbon Dioxide BUN Creatinine Glucose POC Glucose 154 H 125 H Lactic Acid Calcium Ionized Calcium Phosphorus Magnesium Direct Bilirubin AST ALT Alkaline Phosphatase Lactate Dehydrogenase Troponin T C-Reactive Protein Total Protein Albumin Prealbumin Triglycerides Cholesterol LDL Cholesterol Direct HDL Cholesterol 25-OH Vitamin D Total PTH Intact Urine pH Urine WBC (Auto) Urine Creatinine Urine Total Protein Fluid Total Protein Vancomycin Trough Rheumatoid Factor Complement C4 Miscellaneous Test Crossmatch 11/17/16 11/17/16 11/17/16 03:20 03:20 03:20 WBC RBC 2.55 L Hgb 7.3 L Hct 21.9 L MCV MCH MCHC RDW 16.6 H Plt Count Lymph % (Auto) [place] % (Auto) 11.5 H Lymph # [place] # 1.1 H Baso # Seg Neutrophils % Seg Neuts % (Manual) Lymphocytes % (Manual) Monocytes % (Manual) Eosinophils % (Manual) Basophils % (Manual) Nucleated RBC % Seg Neutrophils # Seg Neutrophils # Man Lymphocytes # (Manual) Monocytes # (Manual) Eosinophils # (Manual) Basophils # (Manual) PT 16.8 H INR 1.37 H Fibrinogen dRVVT Confirm Interp Factor V Activity POC ABG pH POC ABG pCO2 POC ABG pO2 ABG pO2 ABG HCO3 ABG Base Excess ABG Hemoglobin Oxyhemoglobin Sodium Potassium 3.5 L Chloride Carbon Dioxide BUN 21 H Creatinine Glucose POC Glucose Lactic Acid Calcium 7.9 L Ionized Calcium Phosphorus Magnesium Direct Bilirubin AST ALT Alkaline Phosphatase Lactate Dehydrogenase Troponin T C-Reactive Protein Total Protein Albumin Prealbumin Triglycerides Cholesterol LDL Cholesterol Direct HDL Cholesterol 25-OH Vitamin D Total PTH Intact Urine pH Urine WBC (Auto) Urine Creatinine Urine Total Protein Fluid Total Protein Vancomycin Trough Rheumatoid Factor Complement C4 Miscellaneous Test Crossmatch 11/17/16 11/17/16 11/17/16 06:34 11:21 21:22 WBC RBC Hgb Hct MCV MCH MCHC RDW Plt Count Lymph % (Auto) [place] % (Auto) Lymph # [place] # Baso # Seg Neutrophils % Seg Neuts % (Manual) Lymphocytes % (Manual) Monocytes % (Manual) Eosinophils % (Manual) Basophils % (Manual) Nucleated RBC % Seg Neutrophils # Seg Neutrophils # Man Lymphocytes # (Manual) Monocytes # (Manual) Eosinophils # (Manual) Basophils # (Manual) PT INR Fibrinogen dRVVT Confirm Interp Factor V Activity POC ABG pH 7.467 H POC ABG pCO2 POC ABG pO2 73 L ABG pO2 ABG HCO3 ABG Base Excess ABG Hemoglobin Oxyhemoglobin Sodium Potassium Chloride Carbon Dioxide BUN Creatinine Glucose POC Glucose 121 H 119 H Lactic Acid Calcium Ionized Calcium Phosphorus Magnesium Direct Bilirubin AST ALT Alkaline Phosphatase Lactate Dehydrogenase Troponin T C-Reactive Protein Total Protein Albumin Prealbumin Triglycerides Cholesterol LDL Cholesterol Direct HDL Cholesterol 25-OH Vitamin D Total PTH Intact Urine pH Urine WBC (Auto) Urine Creatinine Urine Total Protein Fluid Total Protein Vancomycin Trough Rheumatoid Factor Complement C4 Miscellaneous Test Crossmatch 11/18/16 11/18/16 11/19/16 12:16 17:19 00:00 WBC RBC Hgb Hct MCV MCH MCHC RDW Plt Count Lymph % (Auto) [place] % (Auto) Lymph # [place] # Baso # Seg Neutrophils % Seg Neuts % (Manual) Lymphocytes % (Manual) Monocytes % (Manual) Eosinophils % (Manual) Basophils % (Manual) Nucleated RBC % Seg Neutrophils # Seg Neutrophils # Man Lymphocytes # (Manual) Monocytes # (Manual) Eosinophils # (Manual) Basophils # (Manual) PT INR Fibrinogen dRVVT Confirm Interp Factor V Activity POC ABG pH POC ABG pCO2 POC ABG pO2 ABG pO2 ABG HCO3 ABG Base Excess ABG Hemoglobin Oxyhemoglobin Sodium Potassium Chloride Carbon Dioxide BUN Creatinine Glucose POC Glucose 124 H 162 H 139 H Lactic Acid Calcium Ionized Calcium Phosphorus Magnesium Direct Bilirubin AST ALT Alkaline Phosphatase Lactate Dehydrogenase Troponin T C-Reactive Protein Total Protein Albumin Prealbumin Triglycerides Cholesterol LDL Cholesterol Direct HDL Cholesterol 25-OH Vitamin D Total PTH Intact Urine pH Urine WBC (Auto) Urine Creatinine Urine Total Protein Fluid Total Protein Vancomycin Trough Rheumatoid Factor Complement C4 Miscellaneous Test Crossmatch 11/19/16 11/19/16 11/20/16 05:00 12:43 00:40 WBC RBC Hgb Hct MCV MCH MCHC RDW Plt Count Lymph % (Auto) [place] % (Auto) Lymph # [place] # Baso # Seg Neutrophils % Seg Neuts % (Manual) Lymphocytes % (Manual) Monocytes % (Manual) Eosinophils % (Manual) Basophils % (Manual) Nucleated RBC % Seg Neutrophils # Seg Neutrophils # Man Lymphocytes # (Manual) Monocytes # (Manual) Eosinophils # (Manual) Basophils # (Manual) PT INR Fibrinogen dRVVT Confirm Interp Factor V Activity POC ABG pH POC ABG pCO2 POC ABG pO2 ABG pO2 ABG HCO3 ABG Base Excess ABG Hemoglobin Oxyhemoglobin Sodium Potassium Chloride Carbon Dioxide BUN Creatinine Glucose POC Glucose 110 H 125 H 136 H Lactic Acid Calcium Ionized Calcium Phosphorus Magnesium Direct Bilirubin AST ALT Alkaline Phosphatase Lactate Dehydrogenase Troponin T C-Reactive Protein Total Protein Albumin Prealbumin Triglycerides Cholesterol LDL Cholesterol Direct HDL Cholesterol 25-OH Vitamin D Total PTH Intact Urine pH Urine WBC (Auto) Urine Creatinine Urine Total Protein Fluid Total Protein Vancomycin Trough Rheumatoid Factor Complement C4 Miscellaneous Test Crossmatch 11/20/16 11/20/16 11/20/16 05:00 05:00 05:51 WBC 13.1 H RBC 2.74 L Hgb 7.7 L Hct 23.6 L MCV MCH MCHC RDW 16.9 H Plt Count Lymph % (Auto) [place] % (Auto) 10.8 H Lymph # [place] # 1.4 H Baso # Seg Neutrophils % Seg Neuts % (Manual) Lymphocytes % (Manual) Monocytes % (Manual) Eosinophils % (Manual) Basophils % (Manual) Nucleated RBC % Seg Neutrophils # 7.9 H Seg Neutrophils # Man Lymphocytes # (Manual) Monocytes # (Manual) Eosinophils # (Manual) Basophils # (Manual) PT INR Fibrinogen dRVVT Confirm Interp Factor V Activity POC ABG pH POC ABG pCO2 POC ABG pO2 ABG pO2 ABG HCO3 ABG Base Excess ABG Hemoglobin Oxyhemoglobin Sodium Potassium Chloride Carbon Dioxide BUN 31 H Creatinine 1.8 H Glucose 129 H POC Glucose 133 H Lactic Acid Calcium Ionized Calcium Phosphorus Magnesium Direct Bilirubin AST ALT Alkaline Phosphatase Lactate Dehydrogenase Troponin T C-Reactive Protein Total Protein Albumin Prealbumin Triglycerides Cholesterol LDL Cholesterol Direct HDL Cholesterol 25-OH Vitamin D Total PTH Intact Urine pH Urine WBC (Auto) Urine Creatinine Urine Total Protein Fluid Total Protein Vancomycin Trough Rheumatoid Factor Complement C4 Miscellaneous Test Crossmatch 11/20/16 11/20/16 11/21/16 12:40 18:10 01:20 WBC RBC Hgb Hct MCV MCH MCHC RDW Plt Count Lymph % (Auto) [place] % (Auto) Lymph # [place] # Baso # Seg Neutrophils % Seg Neuts % (Manual) Lymphocytes % (Manual) Monocytes % (Manual) Eosinophils % (Manual) Basophils % (Manual) Nucleated RBC % Seg Neutrophils # Seg Neutrophils # Man Lymphocytes # (Manual) Monocytes # (Manual) Eosinophils # (Manual) Basophils # (Manual) PT INR Fibrinogen dRVVT Confirm Interp Factor V Activity POC ABG pH POC ABG pCO2 POC ABG pO2 ABG pO2 ABG HCO3 ABG Base Excess ABG Hemoglobin Oxyhemoglobin Sodium Potassium Chloride Carbon Dioxide BUN Creatinine Glucose POC Glucose 134 H 138 H 136 H Lactic Acid Calcium Ionized Calcium Phosphorus Magnesium Direct Bilirubin AST ALT Alkaline Phosphatase Lactate Dehydrogenase Troponin T C-Reactive Protein Total Protein Albumin Prealbumin Triglycerides Cholesterol LDL Cholesterol Direct HDL Cholesterol 25-OH Vitamin D Total PTH Intact Urine pH Urine WBC (Auto) Urine Creatinine Urine Total Protein Fluid Total Protein Vancomycin Trough Rheumatoid Factor Complement C4 Miscellaneous Test Crossmatch 11/21/16 11/21/16 11/21/16 07:04 07:45 07:45 WBC 22.0 H RBC 2.91 L Hgb 8.2 L Hct 25.4 L MCV MCH MCHC RDW 17.1 H Plt Count Lymph % (Auto) [place] % (Auto) Lymph # [place] # Baso # Seg Neutrophils % Seg Neuts % (Manual) Lymphocytes % (Manual) 8.0 L Monocytes % (Manual) Eosinophils % (Manual) Basophils % (Manual) Nucleated RBC % Seg Neutrophils # Seg Neutrophils # Man 14.7 H Lymphocytes # (Manual) Monocytes # (Manual) 1.1 H Eosinophils # (Manual) Basophils # (Manual) PT INR Fibrinogen dRVVT Confirm Interp Factor V Activity POC ABG pH POC ABG pCO2 POC ABG pO2 ABG pO2 ABG HCO3 ABG Base Excess ABG Hemoglobin Oxyhemoglobin Sodium Potassium Chloride Carbon Dioxide BUN 42 H Creatinine 2.0 H Glucose POC Glucose 108 H Lactic Acid Calcium Ionized Calcium Phosphorus Magnesium Direct Bilirubin AST ALT Alkaline Phosphatase Lactate Dehydrogenase Troponin T C-Reactive Protein Total Protein Albumin Prealbumin Triglycerides Cholesterol LDL Cholesterol Direct HDL Cholesterol 25-OH Vitamin D Total PTH Intact Urine pH Urine WBC (Auto) Urine Creatinine Urine Total Protein Fluid Total Protein Vancomycin Trough Rheumatoid Factor Complement C4 Miscellaneous Test Crossmatch 11/21/16 11/21/16 11/21/16 08:38 10:09 11:20 WBC RBC Hgb Hct MCV MCH MCHC RDW Plt Count Lymph % (Auto) [place] % (Auto) Lymph # [place] # Baso # Seg Neutrophils % Seg Neuts % (Manual) Lymphocytes % (Manual) Monocytes % (Manual) Eosinophils % (Manual) Basophils % (Manual) Nucleated RBC % Seg Neutrophils # Seg Neutrophils # Man Lymphocytes # (Manual) Monocytes # (Manual) Eosinophils # (Manual) Basophils # (Manual) PT INR Fibrinogen dRVVT Confirm Interp Factor V Activity POC ABG pH 7.346 L POC ABG pCO2 34.4 L POC ABG pO2 314 H ABG pO2 ABG HCO3 ABG Base Excess ABG Hemoglobin Oxyhemoglobin Sodium Potassium Chloride Carbon Dioxide BUN Creatinine Glucose POC Glucose 195 H 153 H Lactic Acid Calcium Ionized Calcium Phosphorus Magnesium Direct Bilirubin AST ALT Alkaline Phosphatase Lactate Dehydrogenase Troponin T C-Reactive Protein Total Protein Albumin Prealbumin Triglycerides Cholesterol LDL Cholesterol Direct HDL Cholesterol 25-OH Vitamin D Total PTH Intact Urine pH Urine WBC (Auto) Urine Creatinine Urine Total Protein Fluid Total Protein Vancomycin Trough Rheumatoid Factor Complement C4 Miscellaneous Test Crossmatch 11/21/16 11/22/16 11/22/16 23:37 04:48 05:00 WBC 29.7 H RBC 2.73 L Hgb 7.5 L Hct 24.2 L MCV MCH 27 L MCHC RDW 17.4 H Plt Count Lymph % (Auto) [place] % (Auto) Lymph # [place] # Baso # Seg Neutrophils % Seg Neuts % (Manual) Lymphocytes % (Manual) 7.0 L Monocytes % (Manual) Eosinophils % (Manual) Basophils % (Manual) Nucleated RBC % Seg Neutrophils # Seg Neutrophils # Man 15.4 H Lymphocytes # (Manual) Monocytes # (Manual) Eosinophils # (Manual) Basophils # (Manual) PT INR Fibrinogen dRVVT Confirm Interp Factor V Activity POC ABG pH POC ABG pCO2 24.6 L POC ABG pO2 189 H ABG pO2 ABG HCO3 ABG Base Excess ABG Hemoglobin Oxyhemoglobin Sodium Potassium Chloride Carbon Dioxide BUN Creatinine Glucose POC Glucose 65 L Lactic Acid Calcium Ionized Calcium Phosphorus Magnesium Direct Bilirubin AST ALT Alkaline Phosphatase Lactate Dehydrogenase Troponin T C-Reactive Protein Total Protein Albumin Prealbumin Triglycerides Cholesterol LDL Cholesterol Direct HDL Cholesterol 25-OH Vitamin D Total PTH Intact Urine pH Urine WBC (Auto) Urine Creatinine Urine Total Protein Fluid Total Protein Vancomycin Trough Rheumatoid Factor Complement C4 Miscellaneous Test Crossmatch 11/22/16 11/23/16 11/23/16 05:00 03:44 04:06 WBC RBC 2.52 L Hgb 7.2 L Hct 21.5 L MCV MCH MCHC RDW 17.1 H Plt Count Lymph % (Auto) [place] % (Auto) 12.4 H Lymph # [place] # 1.4 H Baso # Seg Neutrophils % Seg Neuts % (Manual) Lymphocytes % (Manual) Monocytes % (Manual) Eosinophils % (Manual) Basophils % (Manual) Nucleated RBC % Seg Neutrophils # Seg Neutrophils # Man Lymphocytes # (Manual) Monocytes # (Manual) Eosinophils # (Manual) Basophils # (Manual) PT INR Fibrinogen dRVVT Confirm Interp Factor V Activity POC ABG pH 7.493 H POC ABG pCO2 29.5 L POC ABG pO2 49 L ABG pO2 ABG HCO3 ABG Base Excess ABG Hemoglobin Oxyhemoglobin Sodium 134 L Potassium Chloride 95.9 L Carbon Dioxide 14 L D BUN 51 H Creatinine 2.6 H Glucose POC Glucose Lactic Acid Calcium Ionized Calcium Phosphorus Magnesium Direct Bilirubin AST ALT Alkaline Phosphatase Lactate Dehydrogenase Troponin T C-Reactive Protein Total Protein Albumin Prealbumin Triglycerides Cholesterol LDL Cholesterol Direct HDL Cholesterol 25-OH Vitamin D Total PTH Intact Urine pH Urine WBC (Auto) Urine Creatinine Urine Total Protein Fluid Total Protein Vancomycin Trough Rheumatoid Factor Complement C4 Miscellaneous Test Crossmatch 11/23/16 11/23/16 11/24/16 04:06 11:29 06:39 WBC RBC Hgb Hct MCV MCH MCHC RDW Plt Count Lymph % (Auto) [place] % (Auto) Lymph # [place] # Baso # Seg Neutrophils % Seg Neuts % (Manual) Lymphocytes % (Manual) Monocytes % (Manual) Eosinophils % (Manual) Basophils % (Manual) Nucleated RBC % Seg Neutrophils # Seg Neutrophils # Man Lymphocytes # (Manual) Monocytes # (Manual) Eosinophils # (Manual) Basophils # (Manual) PT INR Fibrinogen dRVVT Confirm Interp Factor V Activity POC ABG pH POC ABG pCO2 POC ABG pO2 ABG pO2 ABG HCO3 ABG Base Excess ABG Hemoglobin Oxyhemoglobin Sodium 136 L Potassium Chloride 95.2 L Carbon Dioxide BUN 60 H Creatinine 2.9 H Glucose POC Glucose 69 L 305 H Lactic Acid Calcium Ionized Calcium Phosphorus Magnesium 1.60 L Direct Bilirubin AST ALT Alkaline Phosphatase Lactate Dehydrogenase Troponin T C-Reactive Protein Total Protein Albumin Prealbumin Triglycerides Cholesterol LDL Cholesterol Direct HDL Cholesterol 25-OH Vitamin D Total PTH Intact Urine pH Urine WBC (Auto) Urine Creatinine Urine Total Protein Fluid Total Protein Vancomycin Trough Rheumatoid Factor Complement C4 Miscellaneous Test Crossmatch 11/24/16 11/24/16 11/24/16 06:43 08:08 08:08 WBC 11.2 H RBC 2.47 L Hgb 6.8 L Hct 20.6 L MCV MCH MCHC RDW 17.0 H Plt Count Lymph % (Auto) [place] % (Auto) 10.3 H Lymph # [place] # 1.2 H Baso # Seg Neutrophils % Seg Neuts % (Manual) Lymphocytes % (Manual) Monocytes % (Manual) Eosinophils % (Manual) Basophils % (Manual) Nucleated RBC % Seg Neutrophils # Seg Neutrophils # Man Lymphocytes # (Manual) Monocytes # (Manual) Eosinophils # (Manual) Basophils # (Manual) PT INR Fibrinogen dRVVT Confirm Interp Factor V Activity POC ABG pH POC ABG pCO2 POC ABG pO2 ABG pO2 ABG HCO3 ABG Base Excess ABG Hemoglobin Oxyhemoglobin Sodium 135 L Potassium Chloride 96.3 L Carbon Dioxide BUN 61 H Creatinine 3.1 H Glucose POC Glucose 62 L Lactic Acid Calcium 8.2 L Ionized Calcium Phosphorus Magnesium Direct Bilirubin AST ALT Alkaline Phosphatase Lactate Dehydrogenase Troponin T C-Reactive Protein Total Protein Albumin Prealbumin Triglycerides Cholesterol LDL Cholesterol Direct HDL Cholesterol 25-OH Vitamin D Total PTH Intact Urine pH Urine WBC (Auto) Urine Creatinine Urine Total Protein Fluid Total Protein Vancomycin Trough Rheumatoid Factor Complement C4 Miscellaneous Test Crossmatch 11/24/16 11/24/16 11/24/16 08:34 11:20 12:41 WBC RBC Hgb Hct MCV MCH MCHC RDW Plt Count Lymph % (Auto) [place] % (Auto) Lymph # [place] # Baso # Seg Neutrophils % Seg Neuts % (Manual) Lymphocytes % (Manual) Monocytes % (Manual) Eosinophils % (Manual) Basophils % (Manual) Nucleated RBC % Seg Neutrophils # Seg Neutrophils # Man Lymphocytes # (Manual) Monocytes # (Manual) Eosinophils # (Manual) Basophils # (Manual) PT INR Fibrinogen dRVVT Confirm Interp Factor V Activity POC ABG pH POC ABG pCO2 POC ABG pO2 ABG pO2 ABG HCO3 ABG Base Excess ABG Hemoglobin Oxyhemoglobin Sodium Potassium Chloride Carbon Dioxide BUN Creatinine Glucose POC Glucose 108 H Lactic Acid Calcium Ionized Calcium Phosphorus Magnesium 1.60 L Direct Bilirubin AST ALT Alkaline Phosphatase Lactate Dehydrogenase Troponin T C-Reactive Protein Total Protein Albumin Prealbumin Triglycerides Cholesterol LDL Cholesterol Direct HDL Cholesterol 25-OH Vitamin D Total PTH Intact Urine pH Urine WBC (Auto) Urine Creatinine Urine Total Protein Fluid Total Protein Vancomycin Trough Rheumatoid Factor Complement C4 Miscellaneous Test Crossmatch See Detail 11/25/16 11/25/16 11/25/16 00:03 04:42 04:42 WBC RBC 3.03 L Hgb 8.6 L Hct 25.3 L MCV MCH MCHC RDW 16.2 H Plt Count Lymph % (Auto) [place] % (Auto) 8.1 H Lymph # [place] # Baso # Seg Neutrophils % 71.3 H Seg Neuts % (Manual) Lymphocytes % (Manual) Monocytes % (Manual) Eosinophils % (Manual) Basophils % (Manual) Nucleated RBC % Seg Neutrophils # Seg Neutrophils # Man Lymphocytes # (Manual) Monocytes # (Manual) Eosinophils # (Manual) Basophils # (Manual) PT INR Fibrinogen dRVVT Confirm Interp Factor V Activity POC ABG pH POC ABG pCO2 POC ABG pO2 ABG pO2 ABG HCO3 ABG Base Excess ABG Hemoglobin Oxyhemoglobin Sodium Potassium Chloride Carbon Dioxide BUN 61 H Creatinine 3.0 H Glucose 102 H POC Glucose 113 H Lactic Acid Calcium 8.2 L Ionized Calcium Phosphorus Magnesium Direct Bilirubin AST ALT Alkaline Phosphatase 142 H Lactate Dehydrogenase Troponin T C-Reactive Protein Total Protein 5.7 L Albumin 1.5 L Prealbumin Triglycerides Cholesterol LDL Cholesterol Direct HDL Cholesterol 25-OH Vitamin D Total PTH Intact Urine pH Urine WBC (Auto) Urine Creatinine Urine Total Protein Fluid Total Protein Vancomycin Trough Rheumatoid Factor Complement C4 Miscellaneous Test Crossmatch 11/25/16 11/25/16 11/25/16 05:12 11:31 14:12 WBC RBC Hgb Hct MCV MCH MCHC RDW Plt Count Lymph % (Auto) [place] % (Auto) Lymph # [place] # Baso # Seg Neutrophils % Seg Neuts % (Manual) Lymphocytes % (Manual) Monocytes % (Manual) Eosinophils % (Manual) Basophils % (Manual) Nucleated RBC % Seg Neutrophils # Seg Neutrophils # Man Lymphocytes # (Manual) Monocytes # (Manual) Eosinophils # (Manual) Basophils # (Manual) PT INR Fibrinogen dRVVT Confirm Interp Factor V Activity POC ABG pH 7.487 H POC ABG pCO2 POC ABG pO2 153 H ABG pO2 ABG HCO3 ABG Base Excess ABG Hemoglobin Oxyhemoglobin Sodium Potassium Chloride Carbon Dioxide BUN Creatinine Glucose POC Glucose 131 H 140 H Lactic Acid Calcium Ionized Calcium Phosphorus Magnesium Direct Bilirubin AST ALT Alkaline Phosphatase Lactate Dehydrogenase Troponin T C-Reactive Protein Total Protein Albumin Prealbumin Triglycerides Cholesterol LDL Cholesterol Direct HDL Cholesterol 25-OH Vitamin D Total PTH Intact Urine pH Urine WBC (Auto) Urine Creatinine Urine Total Protein Fluid Total Protein Vancomycin Trough Rheumatoid Factor Complement C4 Miscellaneous Test Crossmatch 11/25/16 11/26/16 11/26/16 17:23 00:09 05:13 WBC RBC 2.94 L Hgb 8.4 L Hct 24.6 L MCV MCH MCHC RDW 16.4 H Plt Count Lymph % (Auto) [place] % (Auto) 12.3 H Lymph # [place] # 1.1 H Baso # Seg Neutrophils % Seg Neuts % (Manual) Lymphocytes % (Manual) Monocytes % (Manual) Eosinophils % (Manual) Basophils % (Manual) Nucleated RBC % Seg Neutrophils # Seg Neutrophils # Man Lymphocytes # (Manual) Monocytes # (Manual) Eosinophils # (Manual) Basophils # (Manual) PT INR Fibrinogen dRVVT Confirm Interp Factor V Activity POC ABG pH POC ABG pCO2 POC ABG pO2 ABG pO2 ABG HCO3 ABG Base Excess ABG Hemoglobin Oxyhemoglobin Sodium Potassium Chloride Carbon Dioxide BUN Creatinine Glucose POC Glucose 146 H 112 H Lactic Acid Calcium Ionized Calcium Phosphorus Magnesium Direct Bilirubin AST ALT Alkaline Phosphatase Lactate Dehydrogenase Troponin T C-Reactive Protein Total Protein Albumin Prealbumin Triglycerides Cholesterol LDL Cholesterol Direct HDL Cholesterol 25-OH Vitamin D Total PTH Intact Urine pH Urine WBC (Auto) Urine Creatinine Urine Total Protein Fluid Total Protein Vancomycin Trough Rheumatoid Factor Complement C4 Miscellaneous Test Crossmatch 11/26/16 11/26/16 11/26/16 05:13 05:28 11:53 WBC RBC Hgb Hct MCV MCH MCHC RDW Plt Count Lymph % (Auto) [place] % (Auto) Lymph # [place] # Baso # Seg Neutrophils % Seg Neuts % (Manual) Lymphocytes % (Manual) Monocytes % (Manual) Eosinophils % (Manual) Basophils % (Manual) Nucleated RBC % Seg Neutrophils # Seg Neutrophils # Man Lymphocytes # (Manual) Monocytes # (Manual) Eosinophils # (Manual) Basophils # (Manual) PT INR Fibrinogen dRVVT Confirm Interp Factor V Activity POC ABG pH POC ABG pCO2 POC ABG pO2 ABG pO2 ABG HCO3 ABG Base Excess ABG Hemoglobin Oxyhemoglobin Sodium Potassium Chloride 97.8 L Carbon Dioxide BUN 37 H Creatinine 2.0 H Glucose 109 H POC Glucose 117 H 111 H Lactic Acid Calcium 7.9 L Ionized Calcium Phosphorus 1.80 L D Magnesium Direct Bilirubin AST ALT Alkaline Phosphatase Lactate Dehydrogenase Troponin T C-Reactive Protein Total Protein Albumin Prealbumin Triglycerides Cholesterol LDL Cholesterol Direct HDL Cholesterol 25-OH Vitamin D Total PTH Intact Urine pH Urine WBC (Auto) Urine Creatinine Urine Total Protein Fluid Total Protein Vancomycin Trough Rheumatoid Factor Complement C4 Miscellaneous Test Crossmatch 11/26/16 11/27/16 11/27/16 17:14 04:50 06:02 WBC RBC Hgb Hct MCV MCH MCHC RDW Plt Count Lymph % (Auto) [place] % (Auto) Lymph # [place] # Baso # Seg Neutrophils % Seg Neuts % (Manual) Lymphocytes % (Manual) Monocytes % (Manual) Eosinophils % (Manual) Basophils % (Manual) Nucleated RBC % Seg Neutrophils # Seg Neutrophils # Man Lymphocytes # (Manual) Monocytes # (Manual) Eosinophils # (Manual) Basophils # (Manual) PT INR Fibrinogen dRVVT Confirm Interp Factor V Activity POC ABG pH POC ABG pCO2 POC ABG pO2 ABG pO2 75.2 L ABG HCO3 26.4 H ABG Base Excess ABG Hemoglobin 7.6 L Oxyhemoglobin 94.8 L Sodium Potassium Chloride Carbon Dioxide BUN 49 H Creatinine 2.3 H Glucose POC Glucose 115 H Lactic Acid Calcium Ionized Calcium Phosphorus 1.50 L Magnesium Direct Bilirubin AST ALT Alkaline Phosphatase Lactate Dehydrogenase Troponin T C-Reactive Protein Total Protein Albumin Prealbumin Triglycerides Cholesterol LDL Cholesterol Direct HDL Cholesterol 25-OH Vitamin D Total PTH Intact Urine pH Urine WBC (Auto) Urine Creatinine Urine Total Protein Fluid Total Protein Vancomycin Trough Rheumatoid Factor Complement C4 Miscellaneous Test Crossmatch 11/27/16 11/27/16 11/27/16 06:02 11:25 17:25 WBC 11.6 H RBC 2.75 L Hgb 7.6 L Hct 23.4 L MCV MCH MCHC RDW 16.5 H Plt Count Lymph % (Auto) [place] % (Auto) Lymph # [place] # Baso # Seg Neutrophils % Seg Neuts % (Manual) Lymphocytes % (Manual) Monocytes % (Manual) Eosinophils % (Manual) Basophils % (Manual) Nucleated RBC % Seg Neutrophils # Seg Neutrophils # Man Lymphocytes # (Manual) Monocytes # (Manual) Eosinophils # (Manual) Basophils # (Manual) PT INR Fibrinogen dRVVT Confirm Interp Factor V Activity POC ABG pH POC ABG pCO2 POC ABG pO2 ABG pO2 ABG HCO3 ABG Base Excess ABG Hemoglobin Oxyhemoglobin Sodium Potassium Chloride Carbon Dioxide BUN Creatinine Glucose POC Glucose 114 H 126 H Lactic Acid Calcium Ionized Calcium Phosphorus Magnesium Direct Bilirubin AST ALT Alkaline Phosphatase Lactate Dehydrogenase Troponin T C-Reactive Protein Total Protein Albumin Prealbumin Triglycerides Cholesterol LDL Cholesterol Direct HDL Cholesterol 25-OH Vitamin D Total PTH Intact Urine pH Urine WBC (Auto) Urine Creatinine Urine Total Protein Fluid Total Protein Vancomycin Trough Rheumatoid Factor Complement C4 Miscellaneous Test Crossmatch 11/28/16 11/28/16 11/28/16 04:45 05:33 05:44 WBC RBC Hgb Hct MCV MCH MCHC RDW Plt Count Lymph % (Auto) [place] % (Auto) Lymph # [place] # Baso # Seg Neutrophils % Seg Neuts % (Manual) Lymphocytes % (Manual) Monocytes % (Manual) Eosinophils % (Manual) Basophils % (Manual) Nucleated RBC % Seg Neutrophils # Seg Neutrophils # Man Lymphocytes # (Manual) Monocytes # (Manual) Eosinophils # (Manual) Basophils # (Manual) PT INR Fibrinogen dRVVT Confirm Interp Factor V Activity POC ABG pH POC ABG pCO2 POC ABG pO2 ABG pO2 99.3 H ABG HCO3 ABG Base Excess ABG Hemoglobin 8.3 L Oxyhemoglobin Sodium Potassium Chloride Carbon Dioxide BUN 63 H Creatinine 2.4 H Glucose 102 H POC Glucose 108 H Lactic Acid Calcium Ionized Calcium Phosphorus 1.80 L Magnesium Direct Bilirubin AST ALT Alkaline Phosphatase Lactate Dehydrogenase Troponin T C-Reactive Protein Total Protein Albumin Prealbumin Triglycerides Cholesterol LDL Cholesterol Direct HDL Cholesterol 25-OH Vitamin D Total PTH Intact Urine pH Urine WBC (Auto) Urine Creatinine Urine Total Protein Fluid Total Protein Vancomycin Trough Rheumatoid Factor Complement C4 Miscellaneous Test Crossmatch 11/28/16 11/28/16 11/28/16 12:31 16:09 23:46 WBC RBC Hgb Hct MCV MCH MCHC RDW Plt Count Lymph % (Auto) [place] % (Auto) Lymph # [place] # Baso # Seg Neutrophils % Seg Neuts % (Manual) Lymphocytes % (Manual) Monocytes % (Manual) Eosinophils % (Manual) Basophils % (Manual) Nucleated RBC % Seg Neutrophils # Seg Neutrophils # Man Lymphocytes # (Manual) Monocytes # (Manual) Eosinophils # (Manual) Basophils # (Manual) PT INR Fibrinogen dRVVT Confirm Interp Factor V Activity POC ABG pH POC ABG pCO2 POC ABG pO2 ABG pO2 ABG HCO3 ABG Base Excess ABG Hemoglobin Oxyhemoglobin Sodium Potassium Chloride Carbon Dioxide BUN Creatinine Glucose POC Glucose 126 H 111 H 119 H Lactic Acid Calcium Ionized Calcium Phosphorus Magnesium Direct Bilirubin AST ALT Alkaline Phosphatase Lactate Dehydrogenase Troponin T C-Reactive Protein Total Protein Albumin Prealbumin Triglycerides Cholesterol LDL Cholesterol Direct HDL Cholesterol 25-OH Vitamin D Total PTH Intact Urine pH Urine WBC (Auto) Urine Creatinine Urine Total Protein Fluid Total Protein Vancomycin Trough Rheumatoid Factor Complement C4 Miscellaneous Test Crossmatch 11/29/16 11/29/16 11/29/16 03:33 04:52 05:10 WBC RBC Hgb Hct MCV MCH MCHC RDW Plt Count Lymph % (Auto) [place] % (Auto) Lymph # [place] # Baso # Seg Neutrophils % Seg Neuts % (Manual) Lymphocytes % (Manual) Monocytes % (Manual) Eosinophils % (Manual) Basophils % (Manual) Nucleated RBC % Seg Neutrophils # Seg Neutrophils # Man Lymphocytes # (Manual) Monocytes # (Manual) Eosinophils # (Manual) Basophils # (Manual) PT INR Fibrinogen dRVVT Confirm Interp Factor V Activity POC ABG pH POC ABG pCO2 POC ABG pO2 ABG pO2 ABG HCO3 ABG Base Excess ABG Hemoglobin 7.0 L Oxyhemoglobin 94.9 L Sodium Potassium Chloride Carbon Dioxide BUN 73 H Creatinine 2.7 H Glucose POC Glucose 108 H Lactic Acid Calcium Ionized Calcium Phosphorus Magnesium Direct Bilirubin AST ALT Alkaline Phosphatase Lactate Dehydrogenase Troponin T C-Reactive Protein Total Protein Albumin Prealbumin Triglycerides Cholesterol LDL Cholesterol Direct HDL Cholesterol 25-OH Vitamin D Total PTH Intact Urine pH Urine WBC (Auto) Urine Creatinine Urine Total Protein Fluid Total Protein Vancomycin Trough Rheumatoid Factor Complement C4 Miscellaneous Test Crossmatch 11/29/16 11/29/16 11/29/16 12:16 18:05 23:46 WBC RBC Hgb Hct MCV MCH MCHC RDW Plt Count Lymph % (Auto) [place] % (Auto) Lymph # [place] # Baso # Seg Neutrophils % Seg Neuts % (Manual) Lymphocytes % (Manual) Monocytes % (Manual) Eosinophils % (Manual) Basophils % (Manual) Nucleated RBC % Seg Neutrophils # Seg Neutrophils # Man Lymphocytes # (Manual) Monocytes # (Manual) Eosinophils # (Manual) Basophils # (Manual) PT INR Fibrinogen dRVVT Confirm Interp Factor V Activity POC ABG pH POC ABG pCO2 POC ABG pO2 ABG pO2 ABG HCO3 ABG Base Excess ABG Hemoglobin Oxyhemoglobin Sodium Potassium Chloride Carbon Dioxide BUN Creatinine Glucose POC Glucose 133 H 146 H 141 H Lactic Acid Calcium Ionized Calcium Phosphorus Magnesium Direct Bilirubin AST ALT Alkaline Phosphatase Lactate Dehydrogenase Troponin T C-Reactive Protein Total Protein Albumin Prealbumin Triglycerides Cholesterol LDL Cholesterol Direct HDL Cholesterol 25-OH Vitamin D Total PTH Intact Urine pH Urine WBC (Auto) Urine Creatinine Urine Total Protein Fluid Total Protein Vancomycin Trough Rheumatoid Factor Complement C4 Miscellaneous Test Crossmatch 11/30/16 11/30/16 11/30/16 04:17 04:17 04:32 WBC 12.0 H RBC 2.80 L Hgb 7.8 L Hct 23.6 L MCV MCH MCHC RDW 16.6 H Plt Count Lymph % (Auto) [place] % (Auto) 11.3 H Lymph # [place] # 1.4 H Baso # Seg Neutrophils % Seg Neuts % (Manual) Lymphocytes % (Manual) Monocytes % (Manual) Eosinophils % (Manual) Basophils % (Manual) Nucleated RBC % Seg Neutrophils # 8.2 H Seg Neutrophils # Man Lymphocytes # (Manual) Monocytes # (Manual) Eosinophils # (Manual) Basophils # (Manual) PT INR Fibrinogen dRVVT Confirm Interp Factor V Activity POC ABG pH POC ABG pCO2 POC ABG pO2 ABG pO2 ABG HCO3 ABG Base Excess ABG Hemoglobin Oxyhemoglobin Sodium 169 H* D Potassium 5.1 H Chloride 121.5 H Carbon Dioxide BUN 34 H Creatinine 1.3 H D Glucose 133 H POC Glucose 131 H Lactic Acid Calcium 10.3 H Ionized Calcium Phosphorus Magnesium Direct Bilirubin AST ALT Alkaline Phosphatase Lactate Dehydrogenase Troponin T C-Reactive Protein Total Protein Albumin Prealbumin Triglycerides Cholesterol LDL Cholesterol Direct HDL Cholesterol 25-OH Vitamin D Total PTH Intact Urine pH Urine WBC (Auto) Urine Creatinine Urine Total Protein Fluid Total Protein Vancomycin Trough Rheumatoid Factor Complement C4 Miscellaneous Test Crossmatch 11/30/16 11/30/16 11/30/16 05:45 11:10 17:26 WBC RBC Hgb Hct MCV MCH MCHC RDW Plt Count Lymph % (Auto) [place] % (Auto) Lymph # [place] # Baso # Seg Neutrophils % Seg Neuts % (Manual) Lymphocytes % (Manual) Monocytes % (Manual) Eosinophils % (Manual) Basophils % (Manual) Nucleated RBC % Seg Neutrophils # Seg Neutrophils # Man Lymphocytes # (Manual) Monocytes # (Manual) Eosinophils # (Manual) Basophils # (Manual) PT INR Fibrinogen dRVVT Confirm Interp Factor V Activity POC ABG pH POC ABG pCO2 POC ABG pO2 ABG pO2 ABG HCO3 ABG Base Excess ABG Hemoglobin Oxyhemoglobin Sodium Potassium Chloride Carbon Dioxide BUN 45 H Creatinine 1.6 H Glucose 131 H POC Glucose 146 H 134 H Lactic Acid Calcium Ionized Calcium Phosphorus Magnesium Direct Bilirubin AST ALT Alkaline Phosphatase Lactate Dehydrogenase Troponin T C-Reactive Protein Total Protein Albumin Prealbumin Triglycerides Cholesterol LDL Cholesterol Direct HDL Cholesterol 25-OH Vitamin D Total PTH Intact Urine pH Urine WBC (Auto) Urine Creatinine Urine Total Protein Fluid Total Protein Vancomycin Trough Rheumatoid Factor Complement C4 Miscellaneous Test Crossmatch 11/30/16 12/01/16 12/01/16 23:35 00:06 03:35 WBC RBC Hgb Hct MCV MCH MCHC RDW Plt Count Lymph % (Auto) [place] % (Auto) Lymph # [place] # Baso # Seg Neutrophils % Seg Neuts % (Manual) Lymphocytes % (Manual) Monocytes % (Manual) Eosinophils % (Manual) Basophils % (Manual) Nucleated RBC % Seg Neutrophils # Seg Neutrophils # Man Lymphocytes # (Manual) Monocytes # (Manual) Eosinophils # (Manual) Basophils # (Manual) PT INR Fibrinogen dRVVT Confirm Interp Factor V Activity POC ABG pH POC ABG pCO2 POC ABG pO2 ABG pO2 ABG HCO3 ABG Base Excess ABG Hemoglobin 6.9 L Oxyhemoglobin Sodium Potassium Chloride Carbon Dioxide BUN 58 H Creatinine 1.8 H Glucose 146 H POC Glucose 151 H Lactic Acid Calcium Ionized Calcium Phosphorus Magnesium Direct Bilirubin AST ALT Alkaline Phosphatase Lactate Dehydrogenase Troponin T C-Reactive Protein Total Protein Albumin Prealbumin Triglycerides Cholesterol LDL Cholesterol Direct HDL Cholesterol 25-OH Vitamin D Total PTH Intact Urine pH Urine WBC (Auto) Urine Creatinine Urine Total Protein Fluid Total Protein Vancomycin Trough Rheumatoid Factor Complement C4 Miscellaneous Test Crossmatch 12/01/16 12/01/16 12/01/16 03:35 05:47 11:52 WBC 12.3 H RBC 2.82 L Hgb 7.8 L Hct 23.7 L MCV MCH MCHC RDW 16.7 H Plt Count Lymph % (Auto) [place] % (Auto) 9.8 H Lymph # [place] # 1.2 H Baso # Seg Neutrophils % Seg Neuts % (Manual) Lymphocytes % (Manual) Monocytes % (Manual) Eosinophils % (Manual) Basophils % (Manual) Nucleated RBC % Seg Neutrophils # 8.4 H Seg Neutrophils # Man Lymphocytes # (Manual) Monocytes # (Manual) Eosinophils # (Manual) Basophils # (Manual) PT INR Fibrinogen dRVVT Confirm Interp Factor V Activity POC ABG pH POC ABG pCO2 POC ABG pO2 ABG pO2 ABG HCO3 ABG Base Excess ABG Hemoglobin Oxyhemoglobin Sodium Potassium Chloride Carbon Dioxide BUN Creatinine Glucose POC Glucose 152 H 152 H Lactic Acid Calcium Ionized Calcium Phosphorus Magnesium Direct Bilirubin AST ALT Alkaline Phosphatase Lactate Dehydrogenase Troponin T C-Reactive Protein Total Protein Albumin Prealbumin Triglycerides Cholesterol LDL Cholesterol Direct HDL Cholesterol 25-OH Vitamin D Total PTH Intact Urine pH Urine WBC (Auto) Urine Creatinine Urine Total Protein Fluid Total Protein Vancomycin Trough Rheumatoid Factor Complement C4 Miscellaneous Test Crossmatch 12/01/16 12/01/16 12/02/16 17:40 23:41 05:00 WBC RBC Hgb Hct MCV MCH MCHC RDW Plt Count Lymph % (Auto) [place] % (Auto) Lymph # [place] # Baso # Seg Neutrophils % Seg Neuts % (Manual) Lymphocytes % (Manual) Monocytes % (Manual) Eosinophils % (Manual) Basophils % (Manual) Nucleated RBC % Seg Neutrophils # Seg Neutrophils # Man Lymphocytes # (Manual) Monocytes # (Manual) Eosinophils # (Manual) Basophils # (Manual) PT INR Fibrinogen dRVVT Confirm Interp Factor V Activity POC ABG pH POC ABG pCO2 POC ABG pO2 ABG pO2 ABG HCO3 ABG Base Excess ABG Hemoglobin Oxyhemoglobin Sodium Potassium Chloride Carbon Dioxide BUN 45 H Creatinine Glucose 115 H POC Glucose 140 H 144 H Lactic Acid Calcium Ionized Calcium Phosphorus Magnesium Direct Bilirubin AST ALT Alkaline Phosphatase Lactate Dehydrogenase Troponin T C-Reactive Protein Total Protein Albumin Prealbumin Triglycerides Cholesterol LDL Cholesterol Direct HDL Cholesterol 25-OH Vitamin D Total PTH Intact Urine pH Urine WBC (Auto) Urine Creatinine Urine Total Protein Fluid Total Protein Vancomycin Trough Rheumatoid Factor Complement C4 Miscellaneous Test Crossmatch 12/02/16 12/02/16 12/02/16 05:31 11:20 17:38 WBC RBC Hgb Hct MCV MCH MCHC RDW Plt Count Lymph % (Auto) [place] % (Auto) Lymph # [place] # Baso # Seg Neutrophils % Seg Neuts % (Manual) Lymphocytes % (Manual) Monocytes % (Manual) Eosinophils % (Manual) Basophils % (Manual) Nucleated RBC % Seg Neutrophils # Seg Neutrophils # Man Lymphocytes # (Manual) Monocytes # (Manual) Eosinophils # (Manual) Basophils # (Manual) PT INR Fibrinogen dRVVT Confirm Interp Factor V Activity POC ABG pH POC ABG pCO2 POC ABG pO2 ABG pO2 ABG HCO3 ABG Base Excess ABG Hemoglobin Oxyhemoglobin Sodium Potassium Chloride Carbon Dioxide BUN Creatinine Glucose POC Glucose 136 H 177 H 139 H Lactic Acid Calcium Ionized Calcium Phosphorus Magnesium Direct Bilirubin AST ALT Alkaline Phosphatase Lactate Dehydrogenase Troponin T C-Reactive Protein Total Protein Albumin Prealbumin Triglycerides Cholesterol LDL Cholesterol Direct HDL Cholesterol 25-OH Vitamin D Total PTH Intact Urine pH Urine WBC (Auto) Urine Creatinine Urine Total Protein Fluid Total Protein Vancomycin Trough Rheumatoid Factor Complement C4 Miscellaneous Test Crossmatch 12/02/16 12/03/16 12/03/16 23:43 04:00 04:00 WBC 20.4 H RBC 2.74 L Hgb 7.4 L Hct 23.6 L MCV MCH 27 L MCHC RDW 17.1 H Plt Count Lymph % (Auto) [place] % (Auto) Lymph # [place] # Baso # Seg Neutrophils % Seg Neuts % (Manual) 31.0 L Lymphocytes % (Manual) Monocytes % (Manual) Eosinophils % (Manual) Basophils % (Manual) Nucleated RBC % Seg Neutrophils # Seg Neutrophils # Man Lymphocytes # (Manual) Monocytes # (Manual) Eosinophils # (Manual) Basophils # (Manual) PT INR Fibrinogen dRVVT Confirm Interp Factor V Activity POC ABG pH POC ABG pCO2 POC ABG pO2 ABG pO2 ABG HCO3 ABG Base Excess ABG Hemoglobin Oxyhemoglobin Sodium Potassium Chloride Carbon Dioxide BUN 61 H Creatinine 1.6 H Glucose 119 H POC Glucose 158 H Lactic Acid Calcium Ionized Calcium Phosphorus Magnesium Direct Bilirubin AST ALT Alkaline Phosphatase Lactate Dehydrogenase Troponin T C-Reactive Protein Total Protein Albumin Prealbumin Triglycerides Cholesterol LDL Cholesterol Direct HDL Cholesterol 25-OH Vitamin D Total PTH Intact Urine pH Urine WBC (Auto) Urine Creatinine Urine Total Protein Fluid Total Protein Vancomycin Trough Rheumatoid Factor Complement C4 Miscellaneous Test Crossmatch 12/03/16 12/03/16 12/03/16 05:02 12:11 18:16 WBC RBC Hgb Hct MCV MCH MCHC RDW Plt Count Lymph % (Auto) [place] % (Auto) Lymph # [place] # Baso # Seg Neutrophils % Seg Neuts % (Manual) Lymphocytes % (Manual) Monocytes % (Manual) Eosinophils % (Manual) Basophils % (Manual) Nucleated RBC % Seg Neutrophils # Seg Neutrophils # Man Lymphocytes # (Manual) Monocytes # (Manual) Eosinophils # (Manual) Basophils # (Manual) PT INR Fibrinogen dRVVT Confirm Interp Factor V Activity POC ABG pH POC ABG pCO2 POC ABG pO2 ABG pO2 ABG HCO3 ABG Base Excess ABG Hemoglobin Oxyhemoglobin Sodium Potassium Chloride Carbon Dioxide BUN Creatinine Glucose POC Glucose 146 H 157 H 124 H Lactic Acid Calcium Ionized Calcium Phosphorus Magnesium Direct Bilirubin AST ALT Alkaline Phosphatase Lactate Dehydrogenase Troponin T C-Reactive Protein Total Protein Albumin Prealbumin Triglycerides Cholesterol LDL Cholesterol Direct HDL Cholesterol 25-OH Vitamin D Total PTH Intact Urine pH Urine WBC (Auto) Urine Creatinine Urine Total Protein Fluid Total Protein Vancomycin Trough Rheumatoid Factor Complement C4 Miscellaneous Test Crossmatch 12/03/16 12/04/16 12/04/16 23:41 04:00 04:45 WBC RBC Hgb Hct MCV MCH MCHC RDW Plt Count Lymph % (Auto) [place] % (Auto) Lymph # [place] # Baso # Seg Neutrophils % Seg Neuts % (Manual) Lymphocytes % (Manual) Monocytes % (Manual) Eosinophils % (Manual) Basophils % (Manual) Nucleated RBC % Seg Neutrophils # Seg Neutrophils # Man Lymphocytes # (Manual) Monocytes # (Manual) Eosinophils # (Manual) Basophils # (Manual) PT INR Fibrinogen dRVVT Confirm Interp Factor V Activity POC ABG pH POC ABG pCO2 POC ABG pO2 ABG pO2 ABG HCO3 ABG Base Excess ABG Hemoglobin Oxyhemoglobin Sodium Potassium Chloride Carbon Dioxide BUN 76 H Creatinine 1.6 H Glucose POC Glucose 130 H 136 H Lactic Acid Calcium Ionized Calcium Phosphorus Magnesium Direct Bilirubin AST ALT Alkaline Phosphatase 155 H Lactate Dehydrogenase Troponin T C-Reactive Protein Total Protein 5.5 L Albumin 1.5 L Prealbumin Triglycerides Cholesterol LDL Cholesterol Direct HDL Cholesterol 25-OH Vitamin D Total PTH Intact Urine pH Urine WBC (Auto) Urine Creatinine Urine Total Protein Fluid Total Protein Vancomycin Trough Rheumatoid Factor Complement C4 Miscellaneous Test Crossmatch 12/04/16 12/04/16 12/05/16 12:08 17:23 00:10 WBC RBC Hgb Hct MCV MCH MCHC RDW Plt Count Lymph % (Auto) [place] % (Auto) Lymph # [place] # Baso # Seg Neutrophils % Seg Neuts % (Manual) Lymphocytes % (Manual) Monocytes % (Manual) Eosinophils % (Manual) Basophils % (Manual) Nucleated RBC % Seg Neutrophils # Seg Neutrophils # Man Lymphocytes # (Manual) Monocytes # (Manual) Eosinophils # (Manual) Basophils # (Manual) PT INR Fibrinogen dRVVT Confirm Interp Factor V Activity POC ABG pH POC ABG pCO2 POC ABG pO2 ABG pO2 ABG HCO3 ABG Base Excess ABG Hemoglobin Oxyhemoglobin Sodium Potassium Chloride Carbon Dioxide BUN Creatinine Glucose POC Glucose 114 H 129 H 124 H Lactic Acid Calcium Ionized Calcium Phosphorus Magnesium Direct Bilirubin AST ALT Alkaline Phosphatase Lactate Dehydrogenase Troponin T C-Reactive Protein Total Protein Albumin Prealbumin Triglycerides Cholesterol LDL Cholesterol Direct HDL Cholesterol 25-OH Vitamin D Total PTH Intact Urine pH Urine WBC (Auto) Urine Creatinine Urine Total Protein Fluid Total Protein Vancomycin Trough Rheumatoid Factor Complement C4 Miscellaneous Test Crossmatch 12/05/16 12/05/16 12/05/16 05:00 05:00 05:18 WBC RBC Hgb Hct MCV MCH MCHC RDW Plt Count Lymph % (Auto) [place] % (Auto) Lymph # [place] # Baso # Seg Neutrophils % Seg Neuts % (Manual) Lymphocytes % (Manual) Monocytes % (Manual) Eosinophils % (Manual) Basophils % (Manual) Nucleated RBC % Seg Neutrophils # Seg Neutrophils # Man Lymphocytes # (Manual) Monocytes # (Manual) Eosinophils # (Manual) Basophils # (Manual) PT INR Fibrinogen dRVVT Confirm Interp Factor V Activity POC ABG pH POC ABG pCO2 POC ABG pO2 ABG pO2 ABG HCO3 ABG Base Excess ABG Hemoglobin Oxyhemoglobin Sodium Potassium Chloride Carbon Dioxide 21 L BUN 85 H Creatinine 1.9 H Glucose 131 H POC Glucose 154 H Lactic Acid Calcium Ionized Calcium Phosphorus Magnesium Direct Bilirubin AST ALT Alkaline Phosphatase Lactate Dehydrogenase Troponin T C-Reactive Protein 19.30 H Total Protein Albumin Prealbumin Triglycerides Cholesterol LDL Cholesterol Direct HDL Cholesterol 25-OH Vitamin D Total PTH Intact Urine pH Urine WBC (Auto) Urine Creatinine Urine Total Protein Fluid Total Protein Vancomycin Trough Rheumatoid Factor Complement C4 Miscellaneous Test Crossmatch 12/05/16 12/05/16 12/05/16 11:43 17:46 23:25 WBC RBC Hgb Hct MCV MCH MCHC RDW Plt Count Lymph % (Auto) [place] % (Auto) Lymph # [place] # Baso # Seg Neutrophils % Seg Neuts % (Manual) Lymphocytes % (Manual) Monocytes % (Manual) Eosinophils % (Manual) Basophils % (Manual) Nucleated RBC % Seg Neutrophils # Seg Neutrophils # Man Lymphocytes # (Manual) Monocytes # (Manual) Eosinophils # (Manual) Basophils # (Manual) PT INR Fibrinogen dRVVT Confirm Interp Factor V Activity POC ABG pH POC ABG pCO2 POC ABG pO2 ABG pO2 ABG HCO3 ABG Base Excess ABG Hemoglobin Oxyhemoglobin Sodium Potassium Chloride Carbon Dioxide BUN Creatinine Glucose POC Glucose 117 H 113 H 111 H Lactic Acid Calcium Ionized Calcium Phosphorus Magnesium Direct Bilirubin AST ALT Alkaline Phosphatase Lactate Dehydrogenase Troponin T C-Reactive Protein Total Protein Albumin Prealbumin Triglycerides Cholesterol LDL Cholesterol Direct HDL Cholesterol 25-OH Vitamin D Total PTH Intact Urine pH Urine WBC (Auto) Urine Creatinine Urine Total Protein Fluid Total Protein Vancomycin Trough Rheumatoid Factor Complement C4 Miscellaneous Test Crossmatch 12/05/16 12/06/16 12/06/16 Unknown 04:58 06:00 WBC RBC Hgb Hct MCV MCH MCHC RDW Plt Count Lymph % (Auto) [place] % (Auto) Lymph # [place] # Baso # Seg Neutrophils % Seg Neuts % (Manual) Lymphocytes % (Manual) Monocytes % (Manual) Eosinophils % (Manual) Basophils % (Manual) Nucleated RBC % Seg Neutrophils # Seg Neutrophils # Man Lymphocytes # (Manual) Monocytes # (Manual) Eosinophils # (Manual) Basophils # (Manual) PT INR Fibrinogen dRVVT Confirm Interp Factor V Activity POC ABG pH POC ABG pCO2 POC ABG pO2 ABG pO2 75.2 L ABG HCO3 ABG Base Excess -3.4 L ABG Hemoglobin 7.4 L Oxyhemoglobin 94.5 L Sodium Potassium Chloride Carbon Dioxide 20 L BUN 99 H Creatinine 2.1 H Glucose 126 H POC Glucose 145 H Lactic Acid Calcium Ionized Calcium Phosphorus 4.80 H Magnesium Direct Bilirubin AST ALT Alkaline Phosphatase Lactate Dehydrogenase Troponin T C-Reactive Protein Total Protein Albumin Prealbumin Triglycerides Cholesterol LDL Cholesterol Direct HDL Cholesterol 25-OH Vitamin D Total PTH Intact Urine pH Urine WBC (Auto) Urine Creatinine Urine Total Protein Fluid Total Protein Vancomycin Trough Rheumatoid Factor Complement C4 Miscellaneous Test Crossmatch 12/06/16 12/06/16 12/06/16 06:46 11:54 17:55 WBC RBC Hgb 8.3 L Hct 26.4 L MCV MCH MCHC RDW Plt Count Lymph % (Auto) [place] % (Auto) Lymph # [place] # Baso # Seg Neutrophils % Seg Neuts % (Manual) Lymphocytes % (Manual) Monocytes % (Manual) Eosinophils % (Manual) Basophils % (Manual) Nucleated RBC % Seg Neutrophils # Seg Neutrophils # Man Lymphocytes # (Manual) Monocytes # (Manual) Eosinophils # (Manual) Basophils # (Manual) PT INR Fibrinogen dRVVT Confirm Interp Factor V Activity POC ABG pH POC ABG pCO2 POC ABG pO2 ABG pO2 ABG HCO3 ABG Base Excess ABG Hemoglobin Oxyhemoglobin Sodium Potassium Chloride Carbon Dioxide BUN Creatinine Glucose POC Glucose 126 H 157 H Lactic Acid Calcium Ionized Calcium Phosphorus Magnesium Direct Bilirubin AST ALT Alkaline Phosphatase Lactate Dehydrogenase Troponin T C-Reactive Protein Total Protein Albumin Prealbumin Triglycerides Cholesterol LDL Cholesterol Direct HDL Cholesterol 25-OH Vitamin D Total PTH Intact Urine pH Urine WBC (Auto) Urine Creatinine Urine Total Protein Fluid Total Protein Vancomycin Trough Rheumatoid Factor Complement C4 Miscellaneous Test Crossmatch 12/06/16 12/07/16 12/07/16 23:59 05:34 06:30 WBC RBC Hgb Hct MCV MCH MCHC RDW Plt Count Lymph % (Auto) [place] % (Auto) Lymph # [place] # Baso # Seg Neutrophils % Seg Neuts % (Manual) Lymphocytes % (Manual) Monocytes % (Manual) Eosinophils % (Manual) Basophils % (Manual) Nucleated RBC % Seg Neutrophils # Seg Neutrophils # Man Lymphocytes # (Manual) Monocytes # (Manual) Eosinophils # (Manual) Basophils # (Manual) PT INR Fibrinogen dRVVT Confirm Interp Factor V Activity POC ABG pH POC ABG pCO2 POC ABG pO2 ABG pO2 ABG HCO3 ABG Base Excess ABG Hemoglobin Oxyhemoglobin Sodium Potassium Chloride Carbon Dioxide BUN 67 H Creatinine 1.4 H Glucose 126 H POC Glucose 129 H 129 H Lactic Acid Calcium Ionized Calcium Phosphorus Magnesium Direct Bilirubin AST ALT Alkaline Phosphatase Lactate Dehydrogenase Troponin T C-Reactive Protein Total Protein Albumin Prealbumin Triglycerides Cholesterol LDL Cholesterol Direct HDL Cholesterol 25-OH Vitamin D Total PTH Intact Urine pH Urine WBC (Auto) Urine Creatinine Urine Total Protein Fluid Total Protein Vancomycin Trough Rheumatoid Factor Complement C4 Miscellaneous Test Crossmatch 12/07/16 12/07/16 12/07/16 06:30 08:00 09:45 WBC 18.8 H RBC 2.52 L Hgb 6.9 L 6.8 L Hct 21.2 L 21.1 L MCV MCH 27 L MCHC RDW 18.0 H Plt Count Lymph % (Auto) [place] % (Auto) 9.9 H Lymph # [place] # 1.9 H Baso # Seg Neutrophils % 71.8 H Seg Neuts % (Manual) Lymphocytes % (Manual) Monocytes % (Manual) Eosinophils % (Manual) Basophils % (Manual) Nucleated RBC % Seg Neutrophils # 13.5 H Seg Neutrophils # Man Lymphocytes # (Manual) Monocytes # (Manual) Eosinophils # (Manual) Basophils # (Manual) PT INR Fibrinogen dRVVT Confirm Interp Factor V Activity POC ABG pH POC ABG pCO2 POC ABG pO2 ABG pO2 ABG HCO3 ABG Base Excess ABG Hemoglobin Oxyhemoglobin Sodium Potassium Chloride Carbon Dioxide BUN Creatinine Glucose POC Glucose Lactic Acid Calcium Ionized Calcium Phosphorus Magnesium Direct Bilirubin AST ALT Alkaline Phosphatase Lactate Dehydrogenase Troponin T C-Reactive Protein Total Protein Albumin Prealbumin Triglycerides Cholesterol LDL Cholesterol Direct HDL Cholesterol 25-OH Vitamin D Total PTH Intact Urine pH Urine WBC (Auto) Urine Creatinine Urine Total Protein Fluid Total Protein Vancomycin Trough Rheumatoid Factor Complement C4 Miscellaneous Test Crossmatch See Detail 12/07/16 12/07/16 12/07/16 11:44 18:19 23:59 WBC RBC Hgb Hct MCV MCH MCHC RDW Plt Count Lymph % (Auto) [place] % (Auto) Lymph # [place] # Baso # Seg Neutrophils % Seg Neuts % (Manual) Lymphocytes % (Manual) Monocytes % (Manual) Eosinophils % (Manual) Basophils % (Manual) Nucleated RBC % Seg Neutrophils # Seg Neutrophils # Man Lymphocytes # (Manual) Monocytes # (Manual) Eosinophils # (Manual) Basophils # (Manual) PT INR Fibrinogen dRVVT Confirm Interp Factor V Activity POC ABG pH POC ABG pCO2 POC ABG pO2 ABG pO2 ABG HCO3 ABG Base Excess ABG Hemoglobin Oxyhemoglobin Sodium Potassium Chloride Carbon Dioxide BUN Creatinine Glucose POC Glucose 137 H 138 H 133 H Lactic Acid Calcium Ionized Calcium Phosphorus Magnesium Direct Bilirubin AST ALT Alkaline Phosphatase Lactate Dehydrogenase Troponin T C-Reactive Protein Total Protein Albumin Prealbumin Triglycerides Cholesterol LDL Cholesterol Direct HDL Cholesterol 25-OH Vitamin D Total PTH Intact Urine pH Urine WBC (Auto) Urine Creatinine Urine Total Protein Fluid Total Protein Vancomycin Trough Rheumatoid Factor Complement C4 Miscellaneous Test Crossmatch 12/08/16 12/08/16 12/08/16 05:25 05:30 05:30 WBC 23.8 H RBC 2.88 L Hgb 8.1 L Hct 24.3 L MCV MCH MCHC RDW 16.7 H Plt Count Lymph % (Auto) [place] % (Auto) Lymph # [place] # Baso # Seg Neutrophils % Seg Neuts % (Manual) 76.0 H Lymphocytes % (Manual) 9.0 L Monocytes % (Manual) 9.0 H Eosinophils % (Manual) Basophils % (Manual) Nucleated RBC % Seg Neutrophils # Seg Neutrophils # Man 18.1 H Lymphocytes # (Manual) Monocytes # (Manual) 2.1 H Eosinophils # (Manual) Basophils # (Manual) PT INR Fibrinogen dRVVT Confirm Interp Factor V Activity POC ABG pH POC ABG pCO2 POC ABG pO2 ABG pO2 ABG HCO3 ABG Base Excess ABG Hemoglobin Oxyhemoglobin Sodium Potassium Chloride Carbon Dioxide 21 L BUN 76 H Creatinine 1.6 H Glucose 133 H POC Glucose 177 H Lactic Acid Calcium Ionized Calcium Phosphorus Magnesium Direct Bilirubin AST ALT Alkaline Phosphatase Lactate Dehydrogenase Troponin T C-Reactive Protein Total Protein Albumin Prealbumin Triglycerides Cholesterol LDL Cholesterol Direct HDL Cholesterol 25-OH Vitamin D Total PTH Intact Urine pH Urine WBC (Auto) Urine Creatinine Urine Total Protein Fluid Total Protein Vancomycin Trough Rheumatoid Factor Complement C4 Miscellaneous Test Crossmatch 12/08/16 12/08/16 12/09/16 11:45 18:00 00:00 WBC RBC Hgb Hct MCV MCH MCHC RDW Plt Count Lymph % (Auto) [place] % (Auto) Lymph # [place] # Baso # Seg Neutrophils % Seg Neuts % (Manual) Lymphocytes % (Manual) Monocytes % (Manual) Eosinophils % (Manual) Basophils % (Manual) Nucleated RBC % Seg Neutrophils # Seg Neutrophils # Man Lymphocytes # (Manual) Monocytes # (Manual) Eosinophils # (Manual) Basophils # (Manual) PT INR Fibrinogen dRVVT Confirm Interp Factor V Activity POC ABG pH POC ABG pCO2 POC ABG pO2 ABG pO2 ABG HCO3 ABG Base Excess ABG Hemoglobin Oxyhemoglobin Sodium Potassium Chloride Carbon Dioxide BUN Creatinine Glucose POC Glucose 163 H 123 H 137 H Lactic Acid Calcium Ionized Calcium Phosphorus Magnesium Direct Bilirubin AST ALT Alkaline Phosphatase Lactate Dehydrogenase Troponin T C-Reactive Protein Total Protein Albumin Prealbumin Triglycerides Cholesterol LDL Cholesterol Direct HDL Cholesterol 25-OH Vitamin D Total PTH Intact Urine pH Urine WBC (Auto) Urine Creatinine Urine Total Protein Fluid Total Protein Vancomycin Trough Rheumatoid Factor Complement C4 Miscellaneous Test Crossmatch 12/09/16 12/09/16 12/09/16 05:34 06:00 06:00 WBC 15.5 H RBC 2.87 L Hgb 8.0 L Hct 24.2 L MCV MCH MCHC RDW 17.2 H Plt Count Lymph % (Auto) [place] % (Auto) 11.6 H Lymph # [place] # 1.8 H Baso # Seg Neutrophils % 70.8 H Seg Neuts % (Manual) Lymphocytes % (Manual) Monocytes % (Manual) Eosinophils % (Manual) Basophils % (Manual) Nucleated RBC % Seg Neutrophils # 11.0 H Seg Neutrophils # Man Lymphocytes # (Manual) Monocytes # (Manual) Eosinophils # (Manual) Basophils # (Manual) PT INR Fibrinogen dRVVT Confirm Interp Factor V Activity POC ABG pH POC ABG pCO2 POC ABG pO2 ABG pO2 ABG HCO3 ABG Base Excess ABG Hemoglobin Oxyhemoglobin Sodium Potassium Chloride Carbon Dioxide BUN 51 H Creatinine Glucose 117 H POC Glucose 136 H Lactic Acid Calcium Ionized Calcium Phosphorus Magnesium Direct Bilirubin AST ALT Alkaline Phosphatase Lactate Dehydrogenase Troponin T C-Reactive Protein Total Protein Albumin Prealbumin Triglycerides Cholesterol LDL Cholesterol Direct HDL Cholesterol 25-OH Vitamin D Total PTH Intact Urine pH Urine WBC (Auto) Urine Creatinine Urine Total Protein Fluid Total Protein Vancomycin Trough Rheumatoid Factor Complement C4 Miscellaneous Test Crossmatch 12/09/16 12/09/16 12/09/16 12:29 17:52 23:10 WBC RBC Hgb Hct MCV MCH MCHC RDW Plt Count Lymph % (Auto) [place] % (Auto) Lymph # [place] # Baso # Seg Neutrophils % Seg Neuts % (Manual) Lymphocytes % (Manual) Monocytes % (Manual) Eosinophils % (Manual) Basophils % (Manual) Nucleated RBC % Seg Neutrophils # Seg Neutrophils # Man Lymphocytes # (Manual) Monocytes # (Manual) Eosinophils # (Manual) Basophils # (Manual) PT INR Fibrinogen dRVVT Confirm Interp Factor V Activity POC ABG pH POC ABG pCO2 POC ABG pO2 ABG pO2 ABG HCO3 ABG Base Excess ABG Hemoglobin Oxyhemoglobin Sodium Potassium Chloride Carbon Dioxide BUN Creatinine Glucose POC Glucose 139 H 140 H 129 H Lactic Acid Calcium Ionized Calcium Phosphorus Magnesium Direct Bilirubin AST ALT Alkaline Phosphatase Lactate Dehydrogenase Troponin T C-Reactive Protein Total Protein Albumin Prealbumin Triglycerides Cholesterol LDL Cholesterol Direct HDL Cholesterol 25-OH Vitamin D Total PTH Intact Urine pH Urine WBC (Auto) Urine Creatinine Urine Total Protein Fluid Total Protein Vancomycin Trough Rheumatoid Factor Complement C4 Miscellaneous Test Crossmatch 12/10/16 12/10/16 12/10/16 05:00 05:00 06:54 WBC 15.7 H RBC 2.87 L Hgb 8.2 L Hct 24.4 L MCV MCH MCHC RDW 17.2 H Plt Count Lymph % (Auto) [place] % (Auto) 8.3 H Lymph # [place] # 1.3 H Baso # Seg Neutrophils % 72.8 H Seg Neuts % (Manual) Lymphocytes % (Manual) Monocytes % (Manual) Eosinophils % (Manual) Basophils % (Manual) Nucleated RBC % Seg Neutrophils # 11.4 H Seg Neutrophils # Man Lymphocytes # (Manual) Monocytes # (Manual) Eosinophils # (Manual) Basophils # (Manual) PT INR Fibrinogen dRVVT Confirm Interp Factor V Activity POC ABG pH POC ABG pCO2 POC ABG pO2 ABG pO2 ABG HCO3 ABG Base Excess ABG Hemoglobin Oxyhemoglobin Sodium Potassium Chloride Carbon Dioxide BUN 64 H Creatinine 1.4 H Glucose 134 H POC Glucose 154 H Lactic Acid Calcium Ionized Calcium Phosphorus Magnesium Direct Bilirubin AST ALT Alkaline Phosphatase Lactate Dehydrogenase Troponin T C-Reactive Protein Total Protein Albumin Prealbumin Triglycerides Cholesterol LDL Cholesterol Direct HDL Cholesterol 25-OH Vitamin D Total PTH Intact Urine pH Urine WBC (Auto) Urine Creatinine Urine Total Protein Fluid Total Protein Vancomycin Trough Rheumatoid Factor Complement C4 Miscellaneous Test Crossmatch 12/10/16 12/10/16 12/10/16 11:58 17:29 23:52 WBC RBC Hgb Hct MCV MCH MCHC RDW Plt Count Lymph % (Auto) [place] % (Auto) Lymph # [place] # Baso # Seg Neutrophils % Seg Neuts % (Manual) Lymphocytes % (Manual) Monocytes % (Manual) Eosinophils % (Manual) Basophils % (Manual) Nucleated RBC % Seg Neutrophils # Seg Neutrophils # Man Lymphocytes # (Manual) Monocytes # (Manual) Eosinophils # (Manual) Basophils # (Manual) PT INR Fibrinogen dRVVT Confirm Interp Factor V Activity POC ABG pH POC ABG pCO2 POC ABG pO2 ABG pO2 ABG HCO3 ABG Base Excess ABG Hemoglobin Oxyhemoglobin Sodium Potassium Chloride Carbon Dioxide BUN Creatinine Glucose POC Glucose 144 H 163 H 125 H Lactic Acid Calcium Ionized Calcium Phosphorus Magnesium Direct Bilirubin AST ALT Alkaline Phosphatase Lactate Dehydrogenase Troponin T C-Reactive Protein Total Protein Albumin Prealbumin Triglycerides Cholesterol LDL Cholesterol Direct HDL Cholesterol 25-OH Vitamin D Total PTH Intact Urine pH Urine WBC (Auto) Urine Creatinine Urine Total Protein Fluid Total Protein Vancomycin Trough Rheumatoid Factor Complement C4 Miscellaneous Test Crossmatch 12/11/16 12/11/16 12/11/16 05:38 06:30 06:30 WBC 14.4 H RBC 2.76 L Hgb 7.7 L Hct 23.4 L MCV MCH MCHC RDW 17.2 H Plt Count Lymph % (Auto) [place] % (Auto) 8.8 H Lymph # [place] # 1.3 H Baso # Seg Neutrophils % 72.5 H Seg Neuts % (Manual) Lymphocytes % (Manual) Monocytes % (Manual) Eosinophils % (Manual) Basophils % (Manual) Nucleated RBC % Seg Neutrophils # 10.5 H Seg Neutrophils # Man Lymphocytes # (Manual) Monocytes # (Manual) Eosinophils # (Manual) Basophils # (Manual) PT INR Fibrinogen dRVVT Confirm Interp Factor V Activity POC ABG pH POC ABG pCO2 POC ABG pO2 ABG pO2 ABG HCO3 ABG Base Excess ABG Hemoglobin Oxyhemoglobin Sodium Potassium Chloride Carbon Dioxide BUN 43 H Creatinine Glucose 124 H POC Glucose 141 H Lactic Acid Calcium 8.3 L Ionized Calcium Phosphorus Magnesium 1.60 L Direct Bilirubin AST ALT Alkaline Phosphatase Lactate Dehydrogenase Troponin T C-Reactive Protein Total Protein Albumin Prealbumin Triglycerides Cholesterol LDL Cholesterol Direct HDL Cholesterol 25-OH Vitamin D Total PTH Intact Urine pH Urine WBC (Auto) Urine Creatinine Urine Total Protein Fluid Total Protein Vancomycin Trough Rheumatoid Factor Complement C4 Miscellaneous Test Crossmatch 12/11/16 12/11/16 12/11/16 11:15 17:59 23:48 WBC RBC Hgb Hct MCV MCH MCHC RDW Plt Count Lymph % (Auto) [place] % (Auto) Lymph # [place] # Baso # Seg Neutrophils % Seg Neuts % (Manual) Lymphocytes % (Manual) Monocytes % (Manual) Eosinophils % (Manual) Basophils % (Manual) Nucleated RBC % Seg Neutrophils # Seg Neutrophils # Man Lymphocytes # (Manual) Monocytes # (Manual) Eosinophils # (Manual) Basophils # (Manual) PT INR Fibrinogen dRVVT Confirm Interp Factor V Activity POC ABG pH POC ABG pCO2 POC ABG pO2 ABG pO2 ABG HCO3 ABG Base Excess ABG Hemoglobin Oxyhemoglobin Sodium Potassium Chloride Carbon Dioxide BUN Creatinine Glucose POC Glucose 188 H 106 H 119 H Lactic Acid Calcium Ionized Calcium Phosphorus Magnesium Direct Bilirubin AST ALT Alkaline Phosphatase Lactate Dehydrogenase Troponin T C-Reactive Protein Total Protein Albumin Prealbumin Triglycerides Cholesterol LDL Cholesterol Direct HDL Cholesterol 25-OH Vitamin D Total PTH Intact Urine pH Urine WBC (Auto) Urine Creatinine Urine Total Protein Fluid Total Protein Vancomycin Trough Rheumatoid Factor Complement C4 Miscellaneous Test Crossmatch 12/12/16 12/12/16 12/12/16 05:00 06:01 12:20 WBC 16.7 H RBC 2.87 L Hgb 8.0 L Hct 24.2 L MCV MCH MCHC RDW 17.6 H Plt Count Lymph % (Auto) [place] % (Auto) Lymph # [place] # 1.2 H Baso # Seg Neutrophils % 75.3 H Seg Neuts % (Manual) Lymphocytes % (Manual) Monocytes % (Manual) Eosinophils % (Manual) Basophils % (Manual) Nucleated RBC % Seg Neutrophils # 12.6 H Seg Neutrophils # Man Lymphocytes # (Manual) Monocytes # (Manual) Eosinophils # (Manual) Basophils # (Manual) PT INR Fibrinogen dRVVT Confirm Interp Factor V Activity POC ABG pH POC ABG pCO2 POC ABG pO2 ABG pO2 ABG HCO3 ABG Base Excess ABG Hemoglobin Oxyhemoglobin Sodium Potassium Chloride Carbon Dioxide BUN Creatinine Glucose POC Glucose 134 H 149 H Lactic Acid Calcium Ionized Calcium Phosphorus Magnesium Direct Bilirubin AST ALT Alkaline Phosphatase Lactate Dehydrogenase Troponin T C-Reactive Protein Total Protein Albumin Prealbumin Triglycerides Cholesterol LDL Cholesterol Direct HDL Cholesterol 25-OH Vitamin D Total PTH Intact Urine pH Urine WBC (Auto) Urine Creatinine Urine Total Protein Fluid Total Protein Vancomycin Trough Rheumatoid Factor Complement C4 Miscellaneous Test Crossmatch 12/12/16 12/12/16 12/12/16 17:38 23:01 Unknown WBC RBC Hgb Hct MCV MCH MCHC RDW Plt Count Lymph % (Auto) [place] % (Auto) Lymph # [place] # Baso # Seg Neutrophils % Seg Neuts % (Manual) Lymphocytes % (Manual) Monocytes % (Manual) Eosinophils % (Manual) Basophils % (Manual) Nucleated RBC % Seg Neutrophils # Seg Neutrophils # Man Lymphocytes # (Manual) Monocytes # (Manual) Eosinophils # (Manual) Basophils # (Manual) PT INR Fibrinogen dRVVT Confirm Interp Factor V Activity POC ABG pH POC ABG pCO2 POC ABG pO2 ABG pO2 ABG HCO3 ABG Base Excess ABG Hemoglobin Oxyhemoglobin Sodium Potassium Chloride Carbon Dioxide BUN 60 H Creatinine 1.3 H Glucose 126 H POC Glucose 127 H 144 H Lactic Acid Calcium Ionized Calcium Phosphorus Magnesium Direct Bilirubin AST ALT Alkaline Phosphatase Lactate Dehydrogenase Troponin T C-Reactive Protein Total Protein Albumin Prealbumin Triglycerides Cholesterol LDL Cholesterol Direct HDL Cholesterol 25-OH Vitamin D Total PTH Intact Urine pH Urine WBC (Auto) Urine Creatinine Urine Total Protein Fluid Total Protein Vancomycin Trough Rheumatoid Factor Complement C4 Miscellaneous Test Crossmatch 12/13/16 12/13/16 12/13/16 04:00 04:00 05:19 WBC 18.7 H RBC 2.89 L Hgb 8.3 L Hct 24.6 L MCV MCH MCHC RDW 17.5 H Plt Count Lymph % (Auto) [place] % (Auto) Lymph # [place] # 1.3 H Baso # Seg Neutrophils % 71.5 H Seg Neuts % (Manual) Lymphocytes % (Manual) Monocytes % (Manual) Eosinophils % (Manual) Basophils % (Manual) Nucleated RBC % Seg Neutrophils # 13.4 H Seg Neutrophils # Man Lymphocytes # (Manual) Monocytes # (Manual) Eosinophils # (Manual) Basophils # (Manual) PT INR Fibrinogen dRVVT Confirm Interp Factor V Activity POC ABG pH POC ABG pCO2 POC ABG pO2 ABG pO2 ABG HCO3 ABG Base Excess ABG Hemoglobin Oxyhemoglobin Sodium Potassium Chloride Carbon Dioxide BUN 73 H Creatinine 1.5 H Glucose 141 H POC Glucose 171 H Lactic Acid Calcium Ionized Calcium Phosphorus Magnesium Direct Bilirubin AST ALT Alkaline Phosphatase Lactate Dehydrogenase Troponin T C-Reactive Protein Total Protein Albumin Prealbumin Triglycerides Cholesterol LDL Cholesterol Direct HDL Cholesterol 25-OH Vitamin D Total PTH Intact Urine pH Urine WBC (Auto) Urine Creatinine Urine Total Protein Fluid Total Protein Vancomycin Trough Rheumatoid Factor Complement C4 Miscellaneous Test Crossmatch 12/13/16 12/13/16 12/14/16 12:28 16:48 00:01 WBC RBC Hgb Hct MCV MCH MCHC RDW Plt Count Lymph % (Auto) [place] % (Auto) Lymph # [place] # Baso # Seg Neutrophils % Seg Neuts % (Manual) Lymphocytes % (Manual) Monocytes % (Manual) Eosinophils % (Manual) Basophils % (Manual) Nucleated RBC % Seg Neutrophils # Seg Neutrophils # Man Lymphocytes # (Manual) Monocytes # (Manual) Eosinophils # (Manual) Basophils # (Manual) PT INR Fibrinogen dRVVT Confirm Interp Factor V Activity POC ABG pH POC ABG pCO2 POC ABG pO2 ABG pO2 ABG HCO3 ABG Base Excess ABG Hemoglobin Oxyhemoglobin Sodium Potassium Chloride Carbon Dioxide BUN Creatinine Glucose POC Glucose 206 H 173 H 139 H Lactic Acid Calcium Ionized Calcium Phosphorus Magnesium Direct Bilirubin AST ALT Alkaline Phosphatase Lactate Dehydrogenase Troponin T C-Reactive Protein Total Protein Albumin Prealbumin Triglycerides Cholesterol LDL Cholesterol Direct HDL Cholesterol 25-OH Vitamin D Total PTH Intact Urine pH Urine WBC (Auto) Urine Creatinine Urine Total Protein Fluid Total Protein Vancomycin Trough Rheumatoid Factor Complement C4 Miscellaneous Test Crossmatch 12/14/16 12/14/16 12/14/16 05:16 06:10 11:17 WBC RBC Hgb Hct MCV MCH MCHC RDW Plt Count Lymph % (Auto) [place] % (Auto) Lymph # [place] # Baso # Seg Neutrophils % Seg Neuts % (Manual) Lymphocytes % (Manual) Monocytes % (Manual) Eosinophils % (Manual) Basophils % (Manual) Nucleated RBC % Seg Neutrophils # Seg Neutrophils # Man Lymphocytes # (Manual) Monocytes # (Manual) Eosinophils # (Manual) Basophils # (Manual) PT INR Fibrinogen dRVVT Confirm Interp Factor V Activity POC ABG pH POC ABG pCO2 POC ABG pO2 ABG pO2 ABG HCO3 ABG Base Excess ABG Hemoglobin Oxyhemoglobin Sodium Potassium Chloride Carbon Dioxide BUN 57 H Creatinine 1.4 H Glucose 135 H POC Glucose 158 H 137 H Lactic Acid Calcium Ionized Calcium Phosphorus Magnesium Direct Bilirubin AST ALT Alkaline Phosphatase Lactate Dehydrogenase Troponin T C-Reactive Protein Total Protein Albumin Prealbumin Triglycerides Cholesterol LDL Cholesterol Direct HDL Cholesterol 25-OH Vitamin D Total PTH Intact Urine pH Urine WBC (Auto) Urine Creatinine Urine Total Protein Fluid Total Protein Vancomycin Trough Rheumatoid Factor Complement C4 Miscellaneous Test Crossmatch 12/14/16 12/14/16 12/15/16 17:52 23:27 04:00 WBC RBC Hgb Hct MCV MCH MCHC RDW Plt Count Lymph % (Auto) [place] % (Auto) Lymph # [place] # Baso # Seg Neutrophils % Seg Neuts % (Manual) Lymphocytes % (Manual) Monocytes % (Manual) Eosinophils % (Manual) Basophils % (Manual) Nucleated RBC % Seg Neutrophils # Seg Neutrophils # Man Lymphocytes # (Manual) Monocytes # (Manual) Eosinophils # (Manual) Basophils # (Manual) PT INR Fibrinogen dRVVT Confirm Interp Factor V Activity POC ABG pH POC ABG pCO2 POC ABG pO2 ABG pO2 ABG HCO3 ABG Base Excess ABG Hemoglobin Oxyhemoglobin Sodium Potassium Chloride 97.9 L Carbon Dioxide BUN 75 H Creatinine 1.6 H Glucose 122 H POC Glucose 149 H 163 H Lactic Acid Calcium Ionized Calcium Phosphorus 5.20 H Magnesium Direct Bilirubin AST ALT Alkaline Phosphatase Lactate Dehydrogenase Troponin T C-Reactive Protein Total Protein Albumin Prealbumin Triglycerides Cholesterol LDL Cholesterol Direct HDL Cholesterol 25-OH Vitamin D Total PTH Intact Urine pH Urine WBC (Auto) Urine Creatinine Urine Total Protein Fluid Total Protein Vancomycin Trough Rheumatoid Factor Complement C4 Miscellaneous Test Crossmatch 12/15/16 12/15/16 12/15/16 05:50 11:24 17:01 WBC RBC Hgb Hct MCV MCH MCHC RDW Plt Count Lymph % (Auto) [place] % (Auto) Lymph # [place] # Baso # Seg Neutrophils % Seg Neuts % (Manual) Lymphocytes % (Manual) Monocytes % (Manual) Eosinophils % (Manual) Basophils % (Manual) Nucleated RBC % Seg Neutrophils # Seg Neutrophils # Man Lymphocytes # (Manual) Monocytes # (Manual) Eosinophils # (Manual) Basophils # (Manual) PT INR Fibrinogen dRVVT Confirm Interp Factor V Activity POC ABG pH POC ABG pCO2 POC ABG pO2 ABG pO2 ABG HCO3 ABG Base Excess ABG Hemoglobin Oxyhemoglobin Sodium Potassium Chloride Carbon Dioxide BUN Creatinine Glucose POC Glucose 150 H 146 H 167 H Lactic Acid Calcium Ionized Calcium Phosphorus Magnesium Direct Bilirubin AST ALT Alkaline Phosphatase Lactate Dehydrogenase Troponin T C-Reactive Protein Total Protein Albumin Prealbumin Triglycerides Cholesterol LDL Cholesterol Direct HDL Cholesterol 25-OH Vitamin D Total PTH Intact Urine pH Urine WBC (Auto) Urine Creatinine Urine Total Protein Fluid Total Protein Vancomycin Trough Rheumatoid Factor Complement C4 Miscellaneous Test Crossmatch 12/15/16 12/16/16 12/16/16 23:34 05:25 11:24 WBC RBC Hgb Hct MCV MCH MCHC RDW Plt Count Lymph % (Auto) [place] % (Auto) Lymph # [place] # Baso # Seg Neutrophils % Seg Neuts % (Manual) Lymphocytes % (Manual) Monocytes % (Manual) Eosinophils % (Manual) Basophils % (Manual) Nucleated RBC % Seg Neutrophils # Seg Neutrophils # Man Lymphocytes # (Manual) Monocytes # (Manual) Eosinophils # (Manual) Basophils # (Manual) PT INR Fibrinogen dRVVT Confirm Interp Factor V Activity POC ABG pH POC ABG pCO2 POC ABG pO2 ABG pO2 ABG HCO3 ABG Base Excess ABG Hemoglobin Oxyhemoglobin Sodium Potassium Chloride Carbon Dioxide BUN Creatinine Glucose POC Glucose 127 H 139 H 165 H Lactic Acid Calcium Ionized Calcium Phosphorus Magnesium Direct Bilirubin AST ALT Alkaline Phosphatase Lactate Dehydrogenase Troponin T C-Reactive Protein Total Protein Albumin Prealbumin Triglycerides Cholesterol LDL Cholesterol Direct HDL Cholesterol 25-OH Vitamin D Total PTH Intact Urine pH Urine WBC (Auto) Urine Creatinine Urine Total Protein Fluid Total Protein Vancomycin Trough Rheumatoid Factor Complement C4 Miscellaneous Test Crossmatch 12/16/16 12/16/16 12/16/16 15:30 16:25 17:31 WBC 17.8 H RBC 2.38 L Hgb 6.4 L Hct 20.3 L MCV MCH 27 L MCHC RDW 17.4 H Plt Count Lymph % (Auto) [place] % (Auto) Lymph # [place] # Baso # Seg Neutrophils % Seg Neuts % (Manual) Lymphocytes % (Manual) Monocytes % (Manual) 10.0 H Eosinophils % (Manual) Basophils % (Manual) Nucleated RBC % Seg Neutrophils # Seg Neutrophils # Man 8.5 H Lymphocytes # (Manual) Monocytes # (Manual) 1.8 H Eosinophils # (Manual) Basophils # (Manual) PT INR Fibrinogen dRVVT Confirm Interp Factor V Activity POC ABG pH POC ABG pCO2 POC ABG pO2 ABG pO2 ABG HCO3 ABG Base Excess ABG Hemoglobin Oxyhemoglobin Sodium Potassium Chloride Carbon Dioxide BUN Creatinine Glucose POC Glucose 176 H Lactic Acid Calcium Ionized Calcium Phosphorus Magnesium Direct Bilirubin AST ALT Alkaline Phosphatase Lactate Dehydrogenase Troponin T C-Reactive Protein Total Protein Albumin Prealbumin Triglycerides Cholesterol LDL Cholesterol Direct HDL Cholesterol 25-OH Vitamin D Total PTH Intact Urine pH Urine WBC (Auto) Urine Creatinine Urine Total Protein Fluid Total Protein Vancomycin Trough Rheumatoid Factor Complement C4 Miscellaneous Test Crossmatch See Detail 12/17/16 12/17/16 12/17/16 00:14 04:00 05:00 WBC 20.0 H RBC 2.99 L Hgb 8.5 L Hct 25.7 L MCV MCH MCHC RDW 17.2 H Plt Count Lymph % (Auto) [place] % (Auto) Lymph # [place] # Baso # Seg Neutrophils % Seg Neuts % (Manual) Lymphocytes % (Manual) Monocytes % (Manual) Eosinophils % (Manual) Basophils % (Manual) Nucleated RBC % Seg Neutrophils # Seg Neutrophils # Man Lymphocytes # (Manual) Monocytes # (Manual) Eosinophils # (Manual) Basophils # (Manual) PT INR Fibrinogen dRVVT Confirm Interp Factor V Activity POC ABG pH POC ABG pCO2 POC ABG pO2 ABG pO2 ABG HCO3 ABG Base Excess ABG Hemoglobin Oxyhemoglobin Sodium Potassium Chloride 97.7 L Carbon Dioxide BUN 73 H Creatinine 1.7 H Glucose 136 H POC Glucose 148 H Lactic Acid Calcium Ionized Calcium Phosphorus 2.20 L Magnesium 2.70 H Direct Bilirubin AST ALT Alkaline Phosphatase Lactate Dehydrogenase Troponin T C-Reactive Protein Total Protein Albumin Prealbumin Triglycerides Cholesterol LDL Cholesterol Direct HDL Cholesterol 25-OH Vitamin D Total PTH Intact Urine pH Urine WBC (Auto) Urine Creatinine Urine Total Protein Fluid Total Protein Vancomycin Trough Rheumatoid Factor Complement C4 Miscellaneous Test Crossmatch 12/17/16 12/17/16 12/17/16 05:39 12:50 16:32 WBC RBC Hgb Hct MCV MCH MCHC RDW Plt Count Lymph % (Auto) [place] % (Auto) Lymph # [place] # Baso # Seg Neutrophils % Seg Neuts % (Manual) Lymphocytes % (Manual) Monocytes % (Manual) Eosinophils % (Manual) Basophils % (Manual) Nucleated RBC % Seg Neutrophils # Seg Neutrophils # Man Lymphocytes # (Manual) Monocytes # (Manual) Eosinophils # (Manual) Basophils # (Manual) PT INR Fibrinogen dRVVT Confirm Interp Factor V Activity POC ABG pH POC ABG pCO2 POC ABG pO2 ABG pO2 ABG HCO3 ABG Base Excess ABG Hemoglobin Oxyhemoglobin Sodium Potassium Chloride Carbon Dioxide BUN Creatinine Glucose POC Glucose 162 H 146 H 169 H Lactic Acid Calcium Ionized Calcium Phosphorus Magnesium Direct Bilirubin AST ALT Alkaline Phosphatase Lactate Dehydrogenase Troponin T C-Reactive Protein Total Protein Albumin Prealbumin Triglycerides Cholesterol LDL Cholesterol Direct HDL Cholesterol 25-OH Vitamin D Total PTH Intact Urine pH Urine WBC (Auto) Urine Creatinine Urine Total Protein Fluid Total Protein Vancomycin Trough Rheumatoid Factor Complement C4 Miscellaneous Test Crossmatch 12/17/16 12/18/16 12/18/16 23:57 05:00 05:32 WBC RBC Hgb Hct MCV MCH MCHC RDW Plt Count Lymph % (Auto) [place] % (Auto) Lymph # [place] # Baso # Seg Neutrophils % Seg Neuts % (Manual) Lymphocytes % (Manual) Monocytes % (Manual) Eosinophils % (Manual) Basophils % (Manual) Nucleated RBC % Seg Neutrophils # Seg Neutrophils # Man Lymphocytes # (Manual) Monocytes # (Manual) Eosinophils # (Manual) Basophils # (Manual) PT INR Fibrinogen dRVVT Confirm Interp Factor V Activity POC ABG pH POC ABG pCO2 POC ABG pO2 ABG pO2 ABG HCO3 ABG Base Excess ABG Hemoglobin Oxyhemoglobin Sodium Potassium Chloride 97.0 L Carbon Dioxide BUN 63 H Creatinine 1.4 H Glucose 174 H POC Glucose 145 H 201 H Lactic Acid Calcium Ionized Calcium Phosphorus 1.70 L D Magnesium Direct Bilirubin AST ALT Alkaline Phosphatase 257 H Lactate Dehydrogenase Troponin T C-Reactive Protein Total Protein 5.9 L Albumin 1.8 L Prealbumin Triglycerides Cholesterol LDL Cholesterol Direct HDL Cholesterol 25-OH Vitamin D Total PTH Intact Urine pH Urine WBC (Auto) Urine Creatinine Urine Total Protein Fluid Total Protein Vancomycin Trough Rheumatoid Factor Complement C4 Miscellaneous Test Crossmatch 12/18/16 12/18/16 12/18/16 11:43 16:52 23:52 WBC RBC Hgb Hct MCV MCH MCHC RDW Plt Count Lymph % (Auto) [place] % (Auto) Lymph # [place] # Baso # Seg Neutrophils % Seg Neuts % (Manual) Lymphocytes % (Manual) Monocytes % (Manual) Eosinophils % (Manual) Basophils % (Manual) Nucleated RBC % Seg Neutrophils # Seg Neutrophils # Man Lymphocytes # (Manual) Monocytes # (Manual) Eosinophils # (Manual) Basophils # (Manual) PT INR Fibrinogen dRVVT Confirm Interp Factor V Activity POC ABG pH POC ABG pCO2 POC ABG pO2 ABG pO2 ABG HCO3 ABG Base Excess ABG Hemoglobin Oxyhemoglobin Sodium Potassium Chloride Carbon Dioxide BUN Creatinine Glucose POC Glucose 177 H 110 H 162 H Lactic Acid Calcium Ionized Calcium Phosphorus Magnesium Direct Bilirubin AST ALT Alkaline Phosphatase Lactate Dehydrogenase Troponin T C-Reactive Protein Total Protein Albumin Prealbumin Triglycerides Cholesterol LDL Cholesterol Direct HDL Cholesterol 25-OH Vitamin D Total PTH Intact Urine pH Urine WBC (Auto) Urine Creatinine Urine Total Protein Fluid Total Protein Vancomycin Trough Rheumatoid Factor Complement C4 Miscellaneous Test Crossmatch 12/19/16 12/19/16 12/19/16 05:02 05:24 09:30 WBC 20.1 H RBC 2.73 L Hgb 7.6 L Hct 23.6 L MCV MCH MCHC RDW 17.6 H Plt Count Lymph % (Auto) [place] % (Auto) Lymph # [place] # Baso # Seg Neutrophils % Seg Neuts % (Manual) Lymphocytes % (Manual) 13.0 L Monocytes % (Manual) Eosinophils % (Manual) Basophils % (Manual) Nucleated RBC % 1.0 H Seg Neutrophils # Seg Neutrophils # Man 12.9 H Lymphocytes # (Manual) Monocytes # (Manual) 1.4 H Eosinophils # (Manual) Basophils # (Manual) 0.2 H PT INR Fibrinogen dRVVT Confirm Interp Factor V Activity POC ABG pH POC ABG pCO2 POC ABG pO2 ABG pO2 ABG HCO3 ABG Base Excess ABG Hemoglobin Oxyhemoglobin Sodium Potassium Chloride 97.8 L Carbon Dioxide BUN 84 H Creatinine 1.6 H Glucose 133 H POC Glucose 134 H Lactic Acid Calcium Ionized Calcium Phosphorus Magnesium Direct Bilirubin AST ALT Alkaline Phosphatase Lactate Dehydrogenase Troponin T C-Reactive Protein Total Protein Albumin Prealbumin Triglycerides Cholesterol LDL Cholesterol Direct HDL Cholesterol 25-OH Vitamin D Total PTH Intact Urine pH Urine WBC (Auto) Urine Creatinine Urine Total Protein Fluid Total Protein Vancomycin Trough Rheumatoid Factor Complement C4 Miscellaneous Test Crossmatch 12/19/16 12/19/16 12/19/16 09:36 11:12 18:29 WBC RBC Hgb Hct MCV MCH MCHC RDW Plt Count Lymph % (Auto) [place] % (Auto) Lymph # [place] # Baso # Seg Neutrophils % Seg Neuts % (Manual) Lymphocytes % (Manual) Monocytes % (Manual) Eosinophils % (Manual) Basophils % (Manual) Nucleated RBC % Seg Neutrophils # Seg Neutrophils # Man Lymphocytes # (Manual) Monocytes # (Manual) Eosinophils # (Manual) Basophils # (Manual) PT INR Fibrinogen dRVVT Confirm Interp Factor V Activity POC ABG pH 7.503 H POC ABG pCO2 30.1 L POC ABG pO2 ABG pO2 ABG HCO3 ABG Base Excess ABG Hemoglobin Oxyhemoglobin Sodium Potassium Chloride Carbon Dioxide BUN Creatinine Glucose POC Glucose 138 H 156 H Lactic Acid Calcium Ionized Calcium Phosphorus Magnesium Direct Bilirubin AST ALT Alkaline Phosphatase Lactate Dehydrogenase Troponin T C-Reactive Protein Total Protein Albumin Prealbumin Triglycerides Cholesterol LDL Cholesterol Direct HDL Cholesterol 25-OH Vitamin D Total PTH Intact Urine pH Urine WBC (Auto) Urine Creatinine Urine Total Protein Fluid Total Protein Vancomycin Trough Rheumatoid Factor Complement C4 Miscellaneous Test Crossmatch 12/20/16 12/20/16 12/20/16 00:03 06:17 07:07 WBC RBC Hgb Hct MCV MCH MCHC RDW Plt Count Lymph % (Auto) [place] % (Auto) Lymph # [place] # Baso # Seg Neutrophils % Seg Neuts % (Manual) Lymphocytes % (Manual) Monocytes % (Manual) Eosinophils % (Manual) Basophils % (Manual) Nucleated RBC % Seg Neutrophils # Seg Neutrophils # Man Lymphocytes # (Manual) Monocytes # (Manual) Eosinophils # (Manual) Basophils # (Manual) PT INR Fibrinogen dRVVT Confirm Interp Factor V Activity POC ABG pH POC ABG pCO2 POC ABG pO2 ABG pO2 ABG HCO3 ABG Base Excess ABG Hemoglobin Oxyhemoglobin Sodium Potassium Chloride 97.1 L Carbon Dioxide 20 L BUN 97 H Creatinine 1.8 H Glucose 153 H POC Glucose 152 H 175 H Lactic Acid Calcium Ionized Calcium Phosphorus Magnesium Direct Bilirubin AST ALT Alkaline Phosphatase Lactate Dehydrogenase Troponin T C-Reactive Protein Total Protein Albumin Prealbumin Triglycerides Cholesterol LDL Cholesterol Direct HDL Cholesterol 25-OH Vitamin D Total PTH Intact Urine pH Urine WBC (Auto) Urine Creatinine Urine Total Protein Fluid Total Protein Vancomycin Trough Rheumatoid Factor Complement C4 Miscellaneous Test Crossmatch 12/20/16 12/20/16 12/20/16 12:00 17:42 23:53 WBC RBC Hgb Hct MCV MCH MCHC RDW Plt Count Lymph % (Auto) [place] % (Auto) Lymph # [place] # Baso # Seg Neutrophils % Seg Neuts % (Manual) Lymphocytes % (Manual) Monocytes % (Manual) Eosinophils % (Manual) Basophils % (Manual) Nucleated RBC % Seg Neutrophils # Seg Neutrophils # Man Lymphocytes # (Manual) Monocytes # (Manual) Eosinophils # (Manual) Basophils # (Manual) PT INR Fibrinogen dRVVT Confirm Interp Factor V Activity POC ABG pH POC ABG pCO2 POC ABG pO2 ABG pO2 ABG HCO3 ABG Base Excess ABG Hemoglobin Oxyhemoglobin Sodium Potassium Chloride Carbon Dioxide BUN Creatinine Glucose POC Glucose 141 H 156 H 132 H Lactic Acid Calcium Ionized Calcium Phosphorus Magnesium Direct Bilirubin AST ALT Alkaline Phosphatase Lactate Dehydrogenase Troponin T C-Reactive Protein Total Protein Albumin Prealbumin Triglycerides Cholesterol LDL Cholesterol Direct HDL Cholesterol 25-OH Vitamin D Total PTH Intact Urine pH Urine WBC (Auto) Urine Creatinine Urine Total Protein Fluid Total Protein Vancomycin Trough Rheumatoid Factor Complement C4 Miscellaneous Test Crossmatch 12/21/16 12/21/16 12/21/16 05:49 08:50 12:19 WBC RBC Hgb Hct MCV MCH MCHC RDW Plt Count Lymph % (Auto) [place] % (Auto) Lymph # [place] # Baso # Seg Neutrophils % Seg Neuts % (Manual) Lymphocytes % (Manual) Monocytes % (Manual) Eosinophils % (Manual) Basophils % (Manual) Nucleated RBC % Seg Neutrophils # Seg Neutrophils # Man Lymphocytes # (Manual) Monocytes # (Manual) Eosinophils # (Manual) Basophils # (Manual) PT INR Fibrinogen dRVVT Confirm Interp Factor V Activity POC ABG pH POC ABG pCO2 POC ABG pO2 ABG pO2 ABG HCO3 ABG Base Excess ABG Hemoglobin Oxyhemoglobin Sodium Potassium 5.2 H D Chloride Carbon Dioxide BUN 63 H Creatinine Glucose 122 H POC Glucose 132 H 136 H Lactic Acid Calcium 8.3 L Ionized Calcium Phosphorus Magnesium Direct Bilirubin AST ALT Alkaline Phosphatase Lactate Dehydrogenase Troponin T C-Reactive Protein Total Protein Albumin Prealbumin Triglycerides Cholesterol LDL Cholesterol Direct HDL Cholesterol 25-OH Vitamin D Total PTH Intact Urine pH Urine WBC (Auto) Urine Creatinine Urine Total Protein Fluid Total Protein Vancomycin Trough Rheumatoid Factor Complement C4 Miscellaneous Test Crossmatch 12/21/16 12/21/16 12/22/16 17:22 23:58 05:49 WBC RBC Hgb Hct MCV MCH MCHC RDW Plt Count Lymph % (Auto) [place] % (Auto) Lymph # [place] # Baso # Seg Neutrophils % Seg Neuts % (Manual) Lymphocytes % (Manual) Monocytes % (Manual) Eosinophils % (Manual) Basophils % (Manual) Nucleated RBC % Seg Neutrophils # Seg Neutrophils # Man Lymphocytes # (Manual) Monocytes # (Manual) Eosinophils # (Manual) Basophils # (Manual) PT INR Fibrinogen dRVVT Confirm Interp Factor V Activity POC ABG pH POC ABG pCO2 POC ABG pO2 ABG pO2 ABG HCO3 ABG Base Excess ABG Hemoglobin Oxyhemoglobin Sodium Potassium Chloride Carbon Dioxide BUN Creatinine Glucose POC Glucose 135 H 149 H 140 H Lactic Acid Calcium Ionized Calcium Phosphorus Magnesium Direct Bilirubin AST ALT Alkaline Phosphatase Lactate Dehydrogenase Troponin T C-Reactive Protein Total Protein Albumin Prealbumin Triglycerides Cholesterol LDL Cholesterol Direct HDL Cholesterol 25-OH Vitamin D Total PTH Intact Urine pH Urine WBC (Auto) Urine Creatinine Urine Total Protein Fluid Total Protein Vancomycin Trough Rheumatoid Factor Complement C4 Miscellaneous Test Crossmatch 12/22/16 12/22/16 12/22/16 06:10 11:17 17:31 WBC RBC Hgb Hct MCV MCH MCHC RDW Plt Count Lymph % (Auto) [place] % (Auto) Lymph # [place] # Baso # Seg Neutrophils % Seg Neuts % (Manual) Lymphocytes % (Manual) Monocytes % (Manual) Eosinophils % (Manual) Basophils % (Manual) Nucleated RBC % Seg Neutrophils # Seg Neutrophils # Man Lymphocytes # (Manual) Monocytes # (Manual) Eosinophils # (Manual) Basophils # (Manual) PT INR Fibrinogen dRVVT Confirm Interp Factor V Activity POC ABG pH POC ABG pCO2 POC ABG pO2 ABG pO2 ABG HCO3 ABG Base Excess ABG Hemoglobin Oxyhemoglobin Sodium Potassium Chloride Carbon Dioxide BUN 76 H Creatinine 1.5 H Glucose 241 H POC Glucose 193 H 148 H Lactic Acid Calcium Ionized Calcium Phosphorus Magnesium Direct Bilirubin AST ALT Alkaline Phosphatase Lactate Dehydrogenase Troponin T C-Reactive Protein Total Protein Albumin Prealbumin Triglycerides Cholesterol LDL Cholesterol Direct HDL Cholesterol 25-OH Vitamin D Total PTH Intact Urine pH Urine WBC (Auto) Urine Creatinine Urine Total Protein Fluid Total Protein Vancomycin Trough Rheumatoid Factor Complement C4 Miscellaneous Test Crossmatch 12/22/16 12/23/16 12/23/16 23:58 05:00 05:26 WBC RBC Hgb Hct MCV MCH MCHC RDW Plt Count Lymph % (Auto) [place] % (Auto) Lymph # [place] # Baso # Seg Neutrophils % Seg Neuts % (Manual) Lymphocytes % (Manual) Monocytes % (Manual) Eosinophils % (Manual) Basophils % (Manual) Nucleated RBC % Seg Neutrophils # Seg Neutrophils # Man Lymphocytes # (Manual) Monocytes # (Manual) Eosinophils # (Manual) Basophils # (Manual) PT INR Fibrinogen dRVVT Confirm Interp Factor V Activity POC ABG pH POC ABG pCO2 POC ABG pO2 ABG pO2 ABG HCO3 ABG Base Excess ABG Hemoglobin Oxyhemoglobin Sodium Potassium Chloride Carbon Dioxide BUN 49 H Creatinine Glucose 143 H POC Glucose 165 H 154 H Lactic Acid Calcium 8.2 L Ionized Calcium Phosphorus Magnesium 1.60 L Direct Bilirubin AST ALT Alkaline Phosphatase Lactate Dehydrogenase Troponin T C-Reactive Protein Total Protein Albumin Prealbumin Triglycerides Cholesterol LDL Cholesterol Direct HDL Cholesterol 25-OH Vitamin D Total PTH Intact Urine pH Urine WBC (Auto) Urine Creatinine Urine Total Protein Fluid Total Protein Vancomycin Trough Rheumatoid Factor Complement C4 Miscellaneous Test Crossmatch 12/23/16 12/23/16 12/24/16 12:35 17:01 00:01 WBC RBC Hgb Hct MCV MCH MCHC RDW Plt Count Lymph % (Auto) [place] % (Auto) Lymph # [place] # Baso # Seg Neutrophils % Seg Neuts % (Manual) Lymphocytes % (Manual) Monocytes % (Manual) Eosinophils % (Manual) Basophils % (Manual) Nucleated RBC % Seg Neutrophils # Seg Neutrophils # Man Lymphocytes # (Manual) Monocytes # (Manual) Eosinophils # (Manual) Basophils # (Manual) PT INR Fibrinogen dRVVT Confirm Interp Factor V Activity POC ABG pH POC ABG pCO2 POC ABG pO2 ABG pO2 ABG HCO3 ABG Base Excess ABG Hemoglobin Oxyhemoglobin Sodium Potassium Chloride Carbon Dioxide BUN Creatinine Glucose POC Glucose 164 H 149 H 135 H Lactic Acid Calcium Ionized Calcium Phosphorus Magnesium Direct Bilirubin AST ALT Alkaline Phosphatase Lactate Dehydrogenase Troponin T C-Reactive Protein Total Protein Albumin Prealbumin Triglycerides Cholesterol LDL Cholesterol Direct HDL Cholesterol 25-OH Vitamin D Total PTH Intact Urine pH Urine WBC (Auto) Urine Creatinine Urine Total Protein Fluid Total Protein Vancomycin Trough Rheumatoid Factor Complement C4 Miscellaneous Test Crossmatch 12/24/16 12/24/16 12/24/16 05:41 07:01 11:38 WBC RBC Hgb Hct MCV MCH MCHC RDW Plt Count Lymph % (Auto) [place] % (Auto) Lymph # [place] # Baso # Seg Neutrophils % Seg Neuts % (Manual) Lymphocytes % (Manual) Monocytes % (Manual) Eosinophils % (Manual) Basophils % (Manual) Nucleated RBC % Seg Neutrophils # Seg Neutrophils # Man Lymphocytes # (Manual) Monocytes # (Manual) Eosinophils # (Manual) Basophils # (Manual) PT INR Fibrinogen dRVVT Confirm Interp Factor V Activity POC ABG pH POC ABG pCO2 POC ABG pO2 ABG pO2 ABG HCO3 ABG Base Excess ABG Hemoglobin Oxyhemoglobin Sodium Potassium Chloride Carbon Dioxide BUN 72 H Creatinine 1.3 H Glucose 130 H POC Glucose 132 H 156 H Lactic Acid Calcium 8.2 L Ionized Calcium Phosphorus Magnesium Direct Bilirubin AST ALT Alkaline Phosphatase Lactate Dehydrogenase Troponin T C-Reactive Protein Total Protein Albumin Prealbumin Triglycerides Cholesterol LDL Cholesterol Direct HDL Cholesterol 25-OH Vitamin D Total PTH Intact Urine pH Urine WBC (Auto) Urine Creatinine Urine Total Protein Fluid Total Protein Vancomycin Trough Rheumatoid Factor Complement C4 Miscellaneous Test Crossmatch 12/24/16 12/25/16 12/25/16 17:53 00:23 05:45 WBC RBC Hgb Hct MCV MCH MCHC RDW Plt Count Lymph % (Auto) [place] % (Auto) Lymph # [place] # Baso # Seg Neutrophils % Seg Neuts % (Manual) Lymphocytes % (Manual) Monocytes % (Manual) Eosinophils % (Manual) Basophils % (Manual) Nucleated RBC % Seg Neutrophils # Seg Neutrophils # Man Lymphocytes # (Manual) Monocytes # (Manual) Eosinophils # (Manual) Basophils # (Manual) PT INR Fibrinogen dRVVT Confirm Interp Factor V Activity POC ABG pH POC ABG pCO2 POC ABG pO2 ABG pO2 ABG HCO3 ABG Base Excess ABG Hemoglobin Oxyhemoglobin Sodium 146 H Potassium Chloride Carbon Dioxide BUN 51 H Creatinine Glucose 109 H POC Glucose 169 H 117 H Lactic Acid Calcium Ionized Calcium Phosphorus Magnesium Direct Bilirubin AST ALT Alkaline Phosphatase Lactate Dehydrogenase Troponin T C-Reactive Protein Total Protein Albumin Prealbumin Triglycerides Cholesterol LDL Cholesterol Direct HDL Cholesterol 25-OH Vitamin D Total PTH Intact Urine pH Urine WBC (Auto) Urine Creatinine Urine Total Protein Fluid Total Protein Vancomycin Trough Rheumatoid Factor Complement C4 Miscellaneous Test Crossmatch 12/25/16 12/25/16 12/25/16 06:43 11:29 17:14 WBC RBC Hgb Hct MCV MCH MCHC RDW Plt Count Lymph % (Auto) [place] % (Auto) Lymph # [place] # Baso # Seg Neutrophils % Seg Neuts % (Manual) Lymphocytes % (Manual) Monocytes % (Manual) Eosinophils % (Manual) Basophils % (Manual) Nucleated RBC % Seg Neutrophils # Seg Neutrophils # Man Lymphocytes # (Manual) Monocytes # (Manual) Eosinophils # (Manual) Basophils # (Manual) PT INR Fibrinogen dRVVT Confirm Interp Factor V Activity POC ABG pH POC ABG pCO2 POC ABG pO2 ABG pO2 ABG HCO3 ABG Base Excess ABG Hemoglobin Oxyhemoglobin Sodium Potassium Chloride Carbon Dioxide BUN Creatinine Glucose POC Glucose 117 H 128 H 120 H Lactic Acid Calcium Ionized Calcium Phosphorus Magnesium Direct Bilirubin AST ALT Alkaline Phosphatase Lactate Dehydrogenase Troponin T C-Reactive Protein Total Protein Albumin Prealbumin Triglycerides Cholesterol LDL Cholesterol Direct HDL Cholesterol 25-OH Vitamin D Total PTH Intact Urine pH Urine WBC (Auto) Urine Creatinine Urine Total Protein Fluid Total Protein Vancomycin Trough Rheumatoid Factor Complement C4 Miscellaneous Test Crossmatch 12/25/16 12/26/16 12/26/16 23:54 05:40 05:50 WBC 16.2 H RBC 2.32 L Hgb 6.2 L Hct 20.1 L MCV MCH 27 L MCHC RDW 18.6 H Plt Count Lymph % (Auto) [place] % (Auto) Lymph # [place] # Baso # Seg Neutrophils % Seg Neuts % (Manual) Lymphocytes % (Manual) Monocytes % (Manual) Eosinophils % (Manual) Basophils % (Manual) Nucleated RBC % Seg Neutrophils # Seg Neutrophils # Man Lymphocytes # (Manual) Monocytes # (Manual) Eosinophils # (Manual) Basophils # (Manual) PT INR Fibrinogen dRVVT Confirm Interp Factor V Activity POC ABG pH POC ABG pCO2 POC ABG pO2 ABG pO2 ABG HCO3 ABG Base Excess ABG Hemoglobin Oxyhemoglobin Sodium Potassium Chloride Carbon Dioxide BUN Creatinine Glucose POC Glucose 126 H 132 H Lactic Acid Calcium Ionized Calcium Phosphorus Magnesium Direct Bilirubin AST ALT Alkaline Phosphatase Lactate Dehydrogenase Troponin T C-Reactive Protein Total Protein Albumin Prealbumin Triglycerides Cholesterol LDL Cholesterol Direct HDL Cholesterol 25-OH Vitamin D Total PTH Intact Urine pH Urine WBC (Auto) Urine Creatinine Urine Total Protein Fluid Total Protein Vancomycin Trough Rheumatoid Factor Complement C4 Miscellaneous Test Crossmatch 12/26/16 12/26/16 12/26/16 05:50 12:17 12:33 WBC RBC Hgb Hct MCV MCH MCHC RDW Plt Count Lymph % (Auto) [place] % (Auto) Lymph # [place] # Baso # Seg Neutrophils % Seg Neuts % (Manual) Lymphocytes % (Manual) Monocytes % (Manual) Eosinophils % (Manual) Basophils % (Manual) Nucleated RBC % Seg Neutrophils # Seg Neutrophils # Man Lymphocytes # (Manual) Monocytes # (Manual) Eosinophils # (Manual) Basophils # (Manual) PT INR Fibrinogen dRVVT Confirm Interp Factor V Activity POC ABG pH POC ABG pCO2 POC ABG pO2 ABG pO2 ABG HCO3 ABG Base Excess ABG Hemoglobin Oxyhemoglobin Sodium Potassium Chloride Carbon Dioxide BUN 73 H Creatinine 1.3 H Glucose 113 H POC Glucose 117 H Lactic Acid Calcium Ionized Calcium Phosphorus Magnesium Direct Bilirubin AST ALT Alkaline Phosphatase Lactate Dehydrogenase Troponin T C-Reactive Protein Total Protein Albumin Prealbumin Triglycerides Cholesterol LDL Cholesterol Direct HDL Cholesterol 25-OH Vitamin D Total PTH Intact Urine pH Urine WBC (Auto) Urine Creatinine Urine Total Protein Fluid Total Protein Vancomycin Trough Rheumatoid Factor Complement C4 Miscellaneous Test Crossmatch See Detail 12/26/16 12/26/16 12/27/16 20:00 23:21 05:00 WBC RBC Hgb 8.4 L Hct 26.3 L D MCV MCH MCHC RDW Plt Count Lymph % (Auto) [place] % (Auto) Lymph # [place] # Baso # Seg Neutrophils % Seg Neuts % (Manual) Lymphocytes % (Manual) Monocytes % (Manual) Eosinophils % (Manual) Basophils % (Manual) Nucleated RBC % Seg Neutrophils # Seg Neutrophils # Man Lymphocytes # (Manual) Monocytes # (Manual) Eosinophils # (Manual) Basophils # (Manual) PT INR Fibrinogen dRVVT Confirm Interp Factor V Activity POC ABG pH POC ABG pCO2 POC ABG pO2 ABG pO2 ABG HCO3 ABG Base Excess ABG Hemoglobin Oxyhemoglobin Sodium Potassium Chloride Carbon Dioxide BUN 85 H Creatinine 1.6 H Glucose 118 H POC Glucose 124 H Lactic Acid Calcium Ionized Calcium Phosphorus 4.80 H Magnesium Direct Bilirubin AST ALT Alkaline Phosphatase Lactate Dehydrogenase Troponin T C-Reactive Protein Total Protein Albumin Prealbumin Triglycerides Cholesterol LDL Cholesterol Direct HDL Cholesterol 25-OH Vitamin D Total PTH Intact Urine pH Urine WBC (Auto) Urine Creatinine Urine Total Protein Fluid Total Protein Vancomycin Trough Rheumatoid Factor Complement C4 Miscellaneous Test Crossmatch 12/27/16 12/27/16 12/27/16 05:00 05:35 12:24 WBC RBC Hgb 7.6 L Hct 22.8 L MCV MCH MCHC RDW Plt Count Lymph % (Auto) [place] % (Auto) Lymph # [place] # Baso # Seg Neutrophils % Seg Neuts % (Manual) Lymphocytes % (Manual) Monocytes % (Manual) Eosinophils % (Manual) Basophils % (Manual) Nucleated RBC % Seg Neutrophils # Seg Neutrophils # Man Lymphocytes # (Manual) Monocytes # (Manual) Eosinophils # (Manual) Basophils # (Manual) PT INR Fibrinogen dRVVT Confirm Interp Factor V Activity POC ABG pH POC ABG pCO2 POC ABG pO2 ABG pO2 ABG HCO3 ABG Base Excess ABG Hemoglobin Oxyhemoglobin Sodium Potassium Chloride Carbon Dioxide BUN Creatinine Glucose POC Glucose 115 H 131 H Lactic Acid Calcium Ionized Calcium Phosphorus Magnesium Direct Bilirubin AST ALT Alkaline Phosphatase Lactate Dehydrogenase Troponin T C-Reactive Protein Total Protein Albumin Prealbumin Triglycerides Cholesterol LDL Cholesterol Direct HDL Cholesterol 25-OH Vitamin D Total PTH Intact Urine pH Urine WBC (Auto) Urine Creatinine Urine Total Protein Fluid Total Protein Vancomycin Trough Rheumatoid Factor Complement C4 Miscellaneous Test Crossmatch 12/27/16 12/28/16 12/28/16 17:16 00:18 04:00 WBC RBC Hgb Hct MCV MCH MCHC RDW Plt Count Lymph % (Auto) [place] % (Auto) Lymph # [place] # Baso # Seg Neutrophils % Seg Neuts % (Manual) Lymphocytes % (Manual) Monocytes % (Manual) Eosinophils % (Manual) Basophils % (Manual) Nucleated RBC % Seg Neutrophils # Seg Neutrophils # Man Lymphocytes # (Manual) Monocytes # (Manual) Eosinophils # (Manual) Basophils # (Manual) PT INR Fibrinogen dRVVT Confirm Interp Factor V Activity POC ABG pH POC ABG pCO2 POC ABG pO2 ABG pO2 ABG HCO3 ABG Base Excess ABG Hemoglobin Oxyhemoglobin Sodium Potassium 3.5 L Chloride Carbon Dioxide BUN 57 H Creatinine Glucose 118 H POC Glucose 136 H 120 H Lactic Acid Calcium 8.3 L Ionized Calcium Phosphorus Magnesium Direct Bilirubin AST ALT Alkaline Phosphatase Lactate Dehydrogenase Troponin T C-Reactive Protein Total Protein Albumin Prealbumin Triglycerides Cholesterol LDL Cholesterol Direct HDL Cholesterol 25-OH Vitamin D Total PTH Intact Urine pH Urine WBC (Auto) Urine Creatinine Urine Total Protein Fluid Total Protein Vancomycin Trough Rheumatoid Factor Complement C4 Miscellaneous Test Crossmatch 12/28/16 12/28/16 12/28/16 04:00 05:11 08:30 WBC 17.0 H RBC 2.58 L Hgb 7.1 L Hct 22.0 L MCV MCH MCHC RDW 17.6 H Plt Count Lymph % (Auto) 12.2 L [place] % (Auto) Lymph # [place] # 1.1 H Baso # Seg Neutrophils % 80.5 H Seg Neuts % (Manual) Lymphocytes % (Manual) Monocytes % (Manual) Eosinophils % (Manual) Basophils % (Manual) Nucleated RBC % Seg Neutrophils # 13.7 H Seg Neutrophils # Man Lymphocytes # (Manual) Monocytes # (Manual) Eosinophils # (Manual) Basophils # (Manual) PT 16.1 H INR 1.23 H Fibrinogen dRVVT Confirm Interp Factor V Activity POC ABG pH POC ABG pCO2 POC ABG pO2 ABG pO2 ABG HCO3 ABG Base Excess ABG Hemoglobin Oxyhemoglobin Sodium Potassium Chloride Carbon Dioxide BUN Creatinine Glucose POC Glucose 122 H Lactic Acid Calcium Ionized Calcium Phosphorus Magnesium Direct Bilirubin AST ALT Alkaline Phosphatase Lactate Dehydrogenase Troponin T C-Reactive Protein Total Protein Albumin Prealbumin Triglycerides Cholesterol LDL Cholesterol Direct HDL Cholesterol 25-OH Vitamin D Total PTH Intact Urine pH Urine WBC (Auto) Urine Creatinine Urine Total Protein Fluid Total Protein Vancomycin Trough Rheumatoid Factor Complement C4 Miscellaneous Test Crossmatch 12/28/16 12/28/16 12/28/16 12:27 16:32 23:46 WBC RBC Hgb Hct MCV MCH MCHC RDW Plt Count Lymph % (Auto) [place] % (Auto) Lymph # [place] # Baso # Seg Neutrophils % Seg Neuts % (Manual) Lymphocytes % (Manual) Monocytes % (Manual) Eosinophils % (Manual) Basophils % (Manual) Nucleated RBC % Seg Neutrophils # Seg Neutrophils # Man Lymphocytes # (Manual) Monocytes # (Manual) Eosinophils # (Manual) Basophils # (Manual) PT INR Fibrinogen dRVVT Confirm Interp Factor V Activity POC ABG pH POC ABG pCO2 POC ABG pO2 ABG pO2 ABG HCO3 ABG Base Excess ABG Hemoglobin Oxyhemoglobin Sodium Potassium Chloride Carbon Dioxide BUN Creatinine Glucose POC Glucose 127 H 117 H 108 H Lactic Acid Calcium Ionized Calcium Phosphorus Magnesium Direct Bilirubin AST ALT Alkaline Phosphatase Lactate Dehydrogenase Troponin T C-Reactive Protein Total Protein Albumin Prealbumin Triglycerides Cholesterol LDL Cholesterol Direct HDL Cholesterol 25-OH Vitamin D Total PTH Intact Urine pH Urine WBC (Auto) Urine Creatinine Urine Total Protein Fluid Total Protein Vancomycin Trough Rheumatoid Factor Complement C4 Miscellaneous Test Crossmatch 12/29/16 12/29/16 12/29/16 05:15 05:15 05:32 WBC RBC Hgb Hct MCV MCH MCHC RDW Plt Count Lymph % (Auto) [place] % (Auto) Lymph # [place] # Baso # Seg Neutrophils % Seg Neuts % (Manual) Lymphocytes % (Manual) Monocytes % (Manual) Eosinophils % (Manual) Basophils % (Manual) Nucleated RBC % Seg Neutrophils # Seg Neutrophils # Man Lymphocytes # (Manual) Monocytes # (Manual) Eosinophils # (Manual) Basophils # (Manual) PT INR Fibrinogen dRVVT Confirm Interp Factor V Activity POC ABG pH POC ABG pCO2 POC ABG pO2 ABG pO2 ABG HCO3 ABG Base Excess ABG Hemoglobin Oxyhemoglobin Sodium Potassium Chloride Carbon Dioxide BUN 74 H Creatinine 1.6 H Glucose 111 H POC Glucose 123 H Lactic Acid Calcium Ionized Calcium Phosphorus Magnesium Direct Bilirubin AST ALT Alkaline Phosphatase Lactate Dehydrogenase Troponin T C-Reactive Protein Total Protein Albumin Prealbumin 0.110 L Triglycerides Cholesterol LDL Cholesterol Direct HDL Cholesterol 25-OH Vitamin D Total PTH Intact Urine pH Urine WBC (Auto) Urine Creatinine Urine Total Protein Fluid Total Protein Vancomycin Trough Rheumatoid Factor Complement C4 Miscellaneous Test Crossmatch 12/29/16 12/29/16 12/29/16 11:43 13:45 14:00 WBC 13.8 H RBC 2.26 L Hgb 6.3 L Hct 20.4 L MCV MCH MCHC RDW 18.3 H Plt Count Lymph % (Auto) [place] % (Auto) Lymph # [place] # 0.9 H Baso # Seg Neutrophils % 78.6 H Seg Neuts % (Manual) Lymphocytes % (Manual) Monocytes % (Manual) Eosinophils % (Manual) Basophils % (Manual) Nucleated RBC % Seg Neutrophils # 10.8 H Seg Neutrophils # Man Lymphocytes # (Manual) Monocytes # (Manual) Eosinophils # (Manual) Basophils # (Manual) PT INR Fibrinogen dRVVT Confirm Interp Factor V Activity POC ABG pH POC ABG pCO2 POC ABG pO2 ABG pO2 ABG HCO3 ABG Base Excess ABG Hemoglobin Oxyhemoglobin Sodium Potassium Chloride Carbon Dioxide BUN Creatinine Glucose POC Glucose 133 H Lactic Acid Calcium Ionized Calcium Phosphorus Magnesium Direct Bilirubin AST ALT Alkaline Phosphatase Lactate Dehydrogenase Troponin T C-Reactive Protein Total Protein Albumin Prealbumin Triglycerides Cholesterol LDL Cholesterol Direct HDL Cholesterol 25-OH Vitamin D Total PTH Intact Urine pH Urine WBC (Auto) Urine Creatinine Urine Total Protein Fluid Total Protein Vancomycin Trough Rheumatoid Factor Complement C4 Miscellaneous Test Crossmatch See Detail 12/29/16 12/29/16 12/29/16 17:03 23:15 23:22 WBC RBC Hgb 7.3 L Hct 22.3 L MCV MCH MCHC RDW Plt Count Lymph % (Auto) [place] % (Auto) Lymph # [place] # Baso # Seg Neutrophils % Seg Neuts % (Manual) Lymphocytes % (Manual) Monocytes % (Manual) Eosinophils % (Manual) Basophils % (Manual) Nucleated RBC % Seg Neutrophils # Seg Neutrophils # Man Lymphocytes # (Manual) Monocytes # (Manual) Eosinophils # (Manual) Basophils # (Manual) PT INR Fibrinogen dRVVT Confirm Interp Factor V Activity POC ABG pH POC ABG pCO2 POC ABG pO2 ABG pO2 ABG HCO3 ABG Base Excess ABG Hemoglobin Oxyhemoglobin Sodium Potassium Chloride Carbon Dioxide BUN Creatinine Glucose POC Glucose 139 H 120 H Lactic Acid Calcium Ionized Calcium Phosphorus Magnesium Direct Bilirubin AST ALT Alkaline Phosphatase Lactate Dehydrogenase Troponin T C-Reactive Protein Total Protein Albumin Prealbumin Triglycerides Cholesterol LDL Cholesterol Direct HDL Cholesterol 25-OH Vitamin D Total PTH Intact Urine pH Urine WBC (Auto) Urine Creatinine Urine Total Protein Fluid Total Protein Vancomycin Trough Rheumatoid Factor Complement C4 Miscellaneous Test Crossmatch 12/30/16 12/30/16 12/30/16 04:20 04:20 05:43 WBC 15.6 H RBC 2.81 L Hgb 8.0 L Hct 24.0 L MCV MCH MCHC RDW 16.9 H Plt Count Lymph % (Auto) [place] % (Auto) Lymph # [place] # 1.0 H Baso # Seg Neutrophils % 76.2 H Seg Neuts % (Manual) Lymphocytes % (Manual) Monocytes % (Manual) Eosinophils % (Manual) Basophils % (Manual) Nucleated RBC % Seg Neutrophils # 11.9 H Seg Neutrophils # Man Lymphocytes # (Manual) Monocytes # (Manual) Eosinophils # (Manual) Basophils # (Manual) PT INR Fibrinogen dRVVT Confirm Interp Factor V Activity POC ABG pH POC ABG pCO2 POC ABG pO2 ABG pO2 ABG HCO3 ABG Base Excess ABG Hemoglobin Oxyhemoglobin Sodium Potassium Chloride Carbon Dioxide BUN 87 H Creatinine 1.8 H Glucose 119 H POC Glucose 115 H Lactic Acid Calcium Ionized Calcium Phosphorus Magnesium Direct Bilirubin AST ALT Alkaline Phosphatase Lactate Dehydrogenase Troponin T C-Reactive Protein Total Protein Albumin Prealbumin Triglycerides Cholesterol LDL Cholesterol Direct HDL Cholesterol 25-OH Vitamin D Total PTH Intact Urine pH Urine WBC (Auto) Urine Creatinine Urine Total Protein Fluid Total Protein Vancomycin Trough Rheumatoid Factor Complement C4 Miscellaneous Test Crossmatch 12/30/16 12/30/16 12/31/16 17:27 23:21 04:00 WBC RBC Hgb Hct MCV MCH MCHC RDW Plt Count Lymph % (Auto) [place] % (Auto) Lymph # [place] # Baso # Seg Neutrophils % Seg Neuts % (Manual) Lymphocytes % (Manual) Monocytes % (Manual) Eosinophils % (Manual) Basophils % (Manual) Nucleated RBC % Seg Neutrophils # Seg Neutrophils # Man Lymphocytes # (Manual) Monocytes # (Manual) Eosinophils # (Manual) Basophils # (Manual) PT INR Fibrinogen dRVVT Confirm Interp Factor V Activity POC ABG pH POC ABG pCO2 POC ABG pO2 ABG pO2 ABG HCO3 ABG Base Excess ABG Hemoglobin Oxyhemoglobin Sodium Potassium Chloride Carbon Dioxide BUN 59 H Creatinine Glucose 298 H POC Glucose 144 H 125 H Lactic Acid Calcium Ionized Calcium Phosphorus Magnesium Direct Bilirubin AST ALT Alkaline Phosphatase Lactate Dehydrogenase Troponin T C-Reactive Protein Total Protein Albumin Prealbumin Triglycerides Cholesterol LDL Cholesterol Direct HDL Cholesterol 25-OH Vitamin D Total PTH Intact Urine pH Urine WBC (Auto) Urine Creatinine Urine Total Protein Fluid Total Protein Vancomycin Trough Rheumatoid Factor Complement C4 Miscellaneous Test Crossmatch 12/31/16 12/31/16 12/31/16 05:11 12:18 18:17 WBC RBC Hgb Hct MCV MCH MCHC RDW Plt Count Lymph % (Auto) [place] % (Auto) Lymph # [place] # Baso # Seg Neutrophils % Seg Neuts % (Manual) Lymphocytes % (Manual) Monocytes % (Manual) Eosinophils % (Manual) Basophils % (Manual) Nucleated RBC % Seg Neutrophils # Seg Neutrophils # Man Lymphocytes # (Manual) Monocytes # (Manual) Eosinophils # (Manual) Basophils # (Manual) PT INR Fibrinogen dRVVT Confirm Interp Factor V Activity POC ABG pH POC ABG pCO2 POC ABG pO2 ABG pO2 ABG HCO3 ABG Base Excess ABG Hemoglobin Oxyhemoglobin Sodium Potassium Chloride Carbon Dioxide BUN Creatinine Glucose POC Glucose 167 H 125 H 133 H Lactic Acid Calcium Ionized Calcium Phosphorus Magnesium Direct Bilirubin AST ALT Alkaline Phosphatase Lactate Dehydrogenase Troponin T C-Reactive Protein Total Protein Albumin Prealbumin Triglycerides Cholesterol LDL Cholesterol Direct HDL Cholesterol 25-OH Vitamin D Total PTH Intact Urine pH Urine WBC (Auto) Urine Creatinine Urine Total Protein Fluid Total Protein Vancomycin Trough Rheumatoid Factor Complement C4 Miscellaneous Test Crossmatch 12/31/16 01/01/17 01/01/17 23:55 05:00 05:12 WBC RBC Hgb Hct MCV MCH MCHC RDW Plt Count Lymph % (Auto) [place] % (Auto) Lymph # [place] # Baso # Seg Neutrophils % Seg Neuts % (Manual) Lymphocytes % (Manual) Monocytes % (Manual) Eosinophils % (Manual) Basophils % (Manual) Nucleated RBC % Seg Neutrophils # Seg Neutrophils # Man Lymphocytes # (Manual) Monocytes # (Manual) Eosinophils # (Manual) Basophils # (Manual) PT INR Fibrinogen dRVVT Confirm Interp Factor V Activity POC ABG pH POC ABG pCO2 POC ABG pO2 ABG pO2 ABG HCO3 ABG Base Excess ABG Hemoglobin Oxyhemoglobin Sodium Potassium Chloride Carbon Dioxide BUN 76 H Creatinine 1.5 H Glucose 109 H POC Glucose 129 H 129 H Lactic Acid Calcium Ionized Calcium Phosphorus Magnesium Direct Bilirubin AST ALT Alkaline Phosphatase 536 H Lactate Dehydrogenase Troponin T C-Reactive Protein Total Protein Albumin 1.5 L Prealbumin Triglycerides Cholesterol LDL Cholesterol Direct HDL Cholesterol 25-OH Vitamin D Total PTH Intact Urine pH Urine WBC (Auto) Urine Creatinine Urine Total Protein Fluid Total Protein Vancomycin Trough Rheumatoid Factor Complement C4 Miscellaneous Test Crossmatch 01/01/17 01/01/17 01/01/17 12:25 17:01 23:32 WBC RBC Hgb Hct MCV MCH MCHC RDW Plt Count Lymph % (Auto) [place] % (Auto) Lymph # [place] # Baso # Seg Neutrophils % Seg Neuts % (Manual) Lymphocytes % (Manual) Monocytes % (Manual) Eosinophils % (Manual) Basophils % (Manual) Nucleated RBC % Seg Neutrophils # Seg Neutrophils # Man Lymphocytes # (Manual) Monocytes # (Manual) Eosinophils # (Manual) Basophils # (Manual) PT INR Fibrinogen dRVVT Confirm Interp Factor V Activity POC ABG pH POC ABG pCO2 POC ABG pO2 ABG pO2 ABG HCO3 ABG Base Excess ABG Hemoglobin Oxyhemoglobin Sodium Potassium Chloride Carbon Dioxide BUN Creatinine Glucose POC Glucose 140 H 142 H 112 H Lactic Acid Calcium Ionized Calcium Phosphorus Magnesium Direct Bilirubin AST ALT Alkaline Phosphatase Lactate Dehydrogenase Troponin T C-Reactive Protein Total Protein Albumin Prealbumin Triglycerides Cholesterol LDL Cholesterol Direct HDL Cholesterol 25-OH Vitamin D Total PTH Intact Urine pH Urine WBC (Auto) Urine Creatinine Urine Total Protein Fluid Total Protein Vancomycin Trough Rheumatoid Factor Complement C4 Miscellaneous Test Crossmatch 01/02/17 01/02/17 01/02/17 04:56 06:00 11:37 WBC RBC Hgb Hct MCV MCH MCHC RDW Plt Count Lymph % (Auto) [place] % (Auto) Lymph # [place] # Baso # Seg Neutrophils % Seg Neuts % (Manual) Lymphocytes % (Manual) Monocytes % (Manual) Eosinophils % (Manual) Basophils % (Manual) Nucleated RBC % Seg Neutrophils # Seg Neutrophils # Man Lymphocytes # (Manual) Monocytes # (Manual) Eosinophils # (Manual) Basophils # (Manual) PT INR Fibrinogen dRVVT Confirm Interp Factor V Activity POC ABG pH POC ABG pCO2 POC ABG pO2 ABG pO2 ABG HCO3 ABG Base Excess ABG Hemoglobin Oxyhemoglobin Sodium Potassium Chloride Carbon Dioxide BUN 88 H Creatinine 1.7 H Glucose 113 H POC Glucose 136 H 200 H Lactic Acid Calcium Ionized Calcium Phosphorus Magnesium Direct Bilirubin AST ALT Alkaline Phosphatase Lactate Dehydrogenase Troponin T C-Reactive Protein Total Protein Albumin Prealbumin Triglycerides Cholesterol LDL Cholesterol Direct HDL Cholesterol 25-OH Vitamin D Total PTH Intact Urine pH Urine WBC (Auto) Urine Creatinine Urine Total Protein Fluid Total Protein Vancomycin Trough Rheumatoid Factor Complement C4 Miscellaneous Test Crossmatch 01/02/17 01/02/17 01/03/17 17:42 22:52 04:54 WBC RBC Hgb Hct MCV MCH MCHC RDW Plt Count Lymph % (Auto) [place] % (Auto) Lymph # [place] # Baso # Seg Neutrophils % Seg Neuts % (Manual) Lymphocytes % (Manual) Monocytes % (Manual) Eosinophils % (Manual) Basophils % (Manual) Nucleated RBC % Seg Neutrophils # Seg Neutrophils # Man Lymphocytes # (Manual) Monocytes # (Manual) Eosinophils # (Manual) Basophils # (Manual) PT INR Fibrinogen dRVVT Confirm Interp Factor V Activity POC ABG pH POC ABG pCO2 POC ABG pO2 ABG pO2 ABG HCO3 ABG Base Excess ABG Hemoglobin Oxyhemoglobin Sodium Potassium Chloride Carbon Dioxide BUN Creatinine Glucose POC Glucose 112 H 133 H 111 H Lactic Acid Calcium Ionized Calcium Phosphorus Magnesium Direct Bilirubin AST ALT Alkaline Phosphatase Lactate Dehydrogenase Troponin T C-Reactive Protein Total Protein Albumin Prealbumin Triglycerides Cholesterol LDL Cholesterol Direct HDL Cholesterol 25-OH Vitamin D Total PTH Intact Urine pH Urine WBC (Auto) Urine Creatinine Urine Total Protein Fluid Total Protein Vancomycin Trough Rheumatoid Factor Complement C4 Miscellaneous Test Crossmatch 01/03/17 01/03/17 01/03/17 05:00 05:00 14:02 WBC 11.2 H RBC 2.56 L Hgb 7.2 L Hct 22.3 L MCV MCH MCHC RDW 17.3 H Plt Count Lymph % (Auto) [place] % (Auto) 10.0 H Lymph # [place] # 1.1 H Baso # Seg Neutrophils % 70.5 H Seg Neuts % (Manual) Lymphocytes % (Manual) Monocytes % (Manual) Eosinophils % (Manual) Basophils % (Manual) Nucleated RBC % Seg Neutrophils # 7.9 H Seg Neutrophils # Man Lymphocytes # (Manual) Monocytes # (Manual) Eosinophils # (Manual) Basophils # (Manual) PT INR Fibrinogen dRVVT Confirm Interp Factor V Activity POC ABG pH POC ABG pCO2 POC ABG pO2 ABG pO2 ABG HCO3 ABG Base Excess ABG Hemoglobin Oxyhemoglobin Sodium Potassium Chloride Carbon Dioxide BUN 60 H Creatinine 1.3 H Glucose 110 H POC Glucose 119 H Lactic Acid Calcium Ionized Calcium Phosphorus Magnesium Direct Bilirubin AST ALT Alkaline Phosphatase Lactate Dehydrogenase Troponin T C-Reactive Protein Total Protein Albumin Prealbumin Triglycerides Cholesterol LDL Cholesterol Direct HDL Cholesterol 25-OH Vitamin D Total PTH Intact Urine pH Urine WBC (Auto) Urine Creatinine Urine Total Protein Fluid Total Protein Vancomycin Trough Rheumatoid Factor Complement C4 Miscellaneous Test Crossmatch 01/03/17 01/03/17 01/04/17 18:13 23:40 05:57 WBC RBC Hgb Hct MCV MCH MCHC RDW Plt Count Lymph % (Auto) [place] % (Auto) Lymph # [place] # Baso # Seg Neutrophils % Seg Neuts % (Manual) Lymphocytes % (Manual) Monocytes % (Manual) Eosinophils % (Manual) Basophils % (Manual) Nucleated RBC % Seg Neutrophils # Seg Neutrophils # Man Lymphocytes # (Manual) Monocytes # (Manual) Eosinophils # (Manual) Basophils # (Manual) PT INR Fibrinogen dRVVT Confirm Interp Factor V Activity POC ABG pH POC ABG pCO2 POC ABG pO2 ABG pO2 ABG HCO3 ABG Base Excess ABG Hemoglobin Oxyhemoglobin Sodium Potassium Chloride Carbon Dioxide BUN Creatinine Glucose POC Glucose 107 H 129 H 111 H Lactic Acid Calcium Ionized Calcium Phosphorus Magnesium Direct Bilirubin AST ALT Alkaline Phosphatase Lactate Dehydrogenase Troponin T C-Reactive Protein Total Protein Albumin Prealbumin Triglycerides Cholesterol LDL Cholesterol Direct HDL Cholesterol 25-OH Vitamin D Total PTH Intact Urine pH Urine WBC (Auto) Urine Creatinine Urine Total Protein Fluid Total Protein Vancomycin Trough Rheumatoid Factor Complement C4 Miscellaneous Test Crossmatch 01/04/17 01/04/17 01/04/17 12:46 15:27 17:11 WBC RBC Hgb Hct MCV MCH MCHC RDW Plt Count Lymph % (Auto) [place] % (Auto) Lymph # [place] # Baso # Seg Neutrophils % Seg Neuts % (Manual) Lymphocytes % (Manual) Monocytes % (Manual) Eosinophils % (Manual) Basophils % (Manual) Nucleated RBC % Seg Neutrophils # Seg Neutrophils # Man Lymphocytes # (Manual) Monocytes # (Manual) Eosinophils # (Manual) Basophils # (Manual) PT INR Fibrinogen dRVVT Confirm Interp Factor V Activity POC ABG pH POC ABG pCO2 POC ABG pO2 ABG pO2 ABG HCO3 ABG Base Excess ABG Hemoglobin Oxyhemoglobin Sodium Potassium Chloride Carbon Dioxide BUN 43 H Creatinine Glucose 124 H POC Glucose 159 H 125 H Lactic Acid Calcium 8.0 L Ionized Calcium Phosphorus 2.10 L Magnesium Direct Bilirubin AST ALT Alkaline Phosphatase Lactate Dehydrogenase Troponin T C-Reactive Protein Total Protein Albumin Prealbumin Triglycerides Cholesterol LDL Cholesterol Direct HDL Cholesterol 25-OH Vitamin D Total PTH Intact Urine pH Urine WBC (Auto) Urine Creatinine Urine Total Protein Fluid Total Protein Vancomycin Trough Rheumatoid Factor Complement C4 Miscellaneous Test Crossmatch 01/04/17 01/05/17 01/05/17 23:31 04:00 05:46 WBC RBC Hgb Hct MCV MCH MCHC RDW Plt Count Lymph % (Auto) [place] % (Auto) Lymph # [place] # Baso # Seg Neutrophils % Seg Neuts % (Manual) Lymphocytes % (Manual) Monocytes % (Manual) Eosinophils % (Manual) Basophils % (Manual) Nucleated RBC % Seg Neutrophils # Seg Neutrophils # Man Lymphocytes # (Manual) Monocytes # (Manual) Eosinophils # (Manual) Basophils # (Manual) PT INR Fibrinogen dRVVT Confirm Interp Factor V Activity POC ABG pH POC ABG pCO2 POC ABG pO2 ABG pO2 ABG HCO3 ABG Base Excess ABG Hemoglobin Oxyhemoglobin Sodium Potassium Chloride Carbon Dioxide BUN 52 H Creatinine 1.3 H Glucose 113 H POC Glucose 123 H 118 H Lactic Acid Calcium Ionized Calcium Phosphorus 2.40 L Magnesium Direct Bilirubin AST ALT Alkaline Phosphatase Lactate Dehydrogenase Troponin T C-Reactive Protein Total Protein Albumin Prealbumin Triglycerides Cholesterol LDL Cholesterol Direct HDL Cholesterol 25-OH Vitamin D Total PTH Intact Urine pH Urine WBC (Auto) Urine Creatinine Urine Total Protein Fluid Total Protein Vancomycin Trough Rheumatoid Factor Complement C4 Miscellaneous Test Crossmatch 01/05/17 01/05/17 01/05/17 11:41 17:48 23:27 WBC RBC Hgb Hct MCV MCH MCHC RDW Plt Count Lymph % (Auto) [place] % (Auto) Lymph # [place] # Baso # Seg Neutrophils % Seg Neuts % (Manual) Lymphocytes % (Manual) Monocytes % (Manual) Eosinophils % (Manual) Basophils % (Manual) Nucleated RBC % Seg Neutrophils # Seg Neutrophils # Man Lymphocytes # (Manual) Monocytes # (Manual) Eosinophils # (Manual) Basophils # (Manual) PT INR Fibrinogen dRVVT Confirm Interp Factor V Activity POC ABG pH POC ABG pCO2 POC ABG pO2 ABG pO2 ABG HCO3 ABG Base Excess ABG Hemoglobin Oxyhemoglobin Sodium Potassium Chloride Carbon Dioxide BUN Creatinine Glucose POC Glucose 163 H 142 H 155 H Lactic Acid Calcium Ionized Calcium Phosphorus Magnesium Direct Bilirubin AST ALT Alkaline Phosphatase Lactate Dehydrogenase Troponin T C-Reactive Protein Total Protein Albumin Prealbumin Triglycerides Cholesterol LDL Cholesterol Direct HDL Cholesterol 25-OH Vitamin D Total PTH Intact Urine pH Urine WBC (Auto) Urine Creatinine Urine Total Protein Fluid Total Protein Vancomycin Trough Rheumatoid Factor Complement C4 Miscellaneous Test Crossmatch 01/06/17 01/06/17 01/06/17 05:20 07:35 11:18 WBC RBC Hgb Hct MCV MCH MCHC RDW Plt Count Lymph % (Auto) [place] % (Auto) Lymph # [place] # Baso # Seg Neutrophils % Seg Neuts % (Manual) Lymphocytes % (Manual) Monocytes % (Manual) Eosinophils % (Manual) Basophils % (Manual) Nucleated RBC % Seg Neutrophils # Seg Neutrophils # Man Lymphocytes # (Manual) Monocytes # (Manual) Eosinophils # (Manual) Basophils # (Manual) PT INR Fibrinogen dRVVT Confirm Interp Factor V Activity POC ABG pH POC ABG pCO2 POC ABG pO2 ABG pO2 ABG HCO3 ABG Base Excess ABG Hemoglobin Oxyhemoglobin Sodium Potassium Chloride Carbon Dioxide BUN 74 H Creatinine 1.6 H Glucose 135 H POC Glucose 108 H 149 H Lactic Acid Calcium Ionized Calcium Phosphorus Magnesium Direct Bilirubin AST ALT Alkaline Phosphatase Lactate Dehydrogenase Troponin T C-Reactive Protein Total Protein Albumin Prealbumin Triglycerides Cholesterol LDL Cholesterol Direct HDL Cholesterol 25-OH Vitamin D Total PTH Intact Urine pH Urine WBC (Auto) Urine Creatinine Urine Total Protein Fluid Total Protein Vancomycin Trough Rheumatoid Factor Complement C4 Miscellaneous Test Crossmatch 01/06/17 01/07/17 01/07/17 17:17 00:23 05:31 WBC RBC Hgb Hct MCV MCH MCHC RDW Plt Count Lymph % (Auto) [place] % (Auto) Lymph # [place] # Baso # Seg Neutrophils % Seg Neuts % (Manual) Lymphocytes % (Manual) Monocytes % (Manual) Eosinophils % (Manual) Basophils % (Manual) Nucleated RBC % Seg Neutrophils # Seg Neutrophils # Man Lymphocytes # (Manual) Monocytes # (Manual) Eosinophils # (Manual) Basophils # (Manual) PT INR Fibrinogen dRVVT Confirm Interp Factor V Activity POC ABG pH POC ABG pCO2 POC ABG pO2 ABG pO2 ABG HCO3 ABG Base Excess ABG Hemoglobin Oxyhemoglobin Sodium Potassium Chloride Carbon Dioxide BUN Creatinine Glucose POC Glucose 146 H 165 H 153 H Lactic Acid Calcium Ionized Calcium Phosphorus Magnesium Direct Bilirubin AST ALT Alkaline Phosphatase Lactate Dehydrogenase Troponin T C-Reactive Protein Total Protein Albumin Prealbumin Triglycerides Cholesterol LDL Cholesterol Direct HDL Cholesterol 25-OH Vitamin D Total PTH Intact Urine pH Urine WBC (Auto) Urine Creatinine Urine Total Protein Fluid Total Protein Vancomycin Trough Rheumatoid Factor Complement C4 Miscellaneous Test Crossmatch 01/07/17 01/07/17 01/07/17 06:00 11:39 17:11 WBC RBC Hgb Hct MCV MCH MCHC RDW Plt Count Lymph % (Auto) [place] % (Auto) Lymph # [place] # Baso # Seg Neutrophils % Seg Neuts % (Manual) Lymphocytes % (Manual) Monocytes % (Manual) Eosinophils % (Manual) Basophils % (Manual) Nucleated RBC % Seg Neutrophils # Seg Neutrophils # Man Lymphocytes # (Manual) Monocytes # (Manual) Eosinophils # (Manual) Basophils # (Manual) PT INR Fibrinogen dRVVT Confirm Interp Factor V Activity POC ABG pH POC ABG pCO2 POC ABG pO2 ABG pO2 ABG HCO3 ABG Base Excess ABG Hemoglobin Oxyhemoglobin Sodium Potassium Chloride Carbon Dioxide BUN 42 H Creatinine Glucose 175 H POC Glucose 163 H 163 H Lactic Acid Calcium Ionized Calcium Phosphorus 2.40 L D Magnesium Direct Bilirubin AST ALT Alkaline Phosphatase Lactate Dehydrogenase Troponin T C-Reactive Protein Total Protein Albumin Prealbumin Triglycerides Cholesterol LDL Cholesterol Direct HDL Cholesterol 25-OH Vitamin D Total PTH Intact Urine pH Urine WBC (Auto) Urine Creatinine Urine Total Protein Fluid Total Protein Vancomycin Trough Rheumatoid Factor Complement C4 Miscellaneous Test Crossmatch 01/07/17 01/08/17 01/08/17 23:40 05:00 05:00 WBC 27.4 H RBC 2.27 L Hgb 6.1 L Hct 20.4 L MCV MCH 27 L MCHC RDW 17.8 H Plt Count Lymph % (Auto) [place] % (Auto) Lymph # [place] # Baso # Seg Neutrophils % Seg Neuts % (Manual) Lymphocytes % (Manual) Monocytes % (Manual) Eosinophils % (Manual) Basophils % (Manual) Nucleated RBC % Seg Neutrophils # Seg Neutrophils # Man Lymphocytes # (Manual) Monocytes # (Manual) Eosinophils # (Manual) Basophils # (Manual) PT INR Fibrinogen dRVVT Confirm Interp Factor V Activity POC ABG pH POC ABG pCO2 POC ABG pO2 ABG pO2 ABG HCO3 ABG Base Excess ABG Hemoglobin Oxyhemoglobin Sodium Potassium Chloride Carbon Dioxide 16 L D BUN 62 H Creatinine 1.6 H D Glucose 103 H POC Glucose 135 H Lactic Acid Calcium Ionized Calcium Phosphorus Magnesium Direct Bilirubin AST ALT Alkaline Phosphatase Lactate Dehydrogenase Troponin T C-Reactive Protein Total Protein Albumin Prealbumin Triglycerides Cholesterol LDL Cholesterol Direct HDL Cholesterol 25-OH Vitamin D Total PTH Intact Urine pH Urine WBC (Auto) Urine Creatinine Urine Total Protein Fluid Total Protein Vancomycin Trough Rheumatoid Factor Complement C4 Miscellaneous Test Crossmatch 01/08/17 01/08/17 01/08/17 05:25 10:37 10:37 WBC RBC Hgb Hct MCV MCH MCHC RDW Plt Count Lymph % (Auto) [place] % (Auto) Lymph # [place] # Baso # Seg Neutrophils % Seg Neuts % (Manual) Lymphocytes % (Manual) Monocytes % (Manual) Eosinophils % (Manual) Basophils % (Manual) Nucleated RBC % Seg Neutrophils # Seg Neutrophils # Man Lymphocytes # (Manual) Monocytes # (Manual) Eosinophils # (Manual) Basophils # (Manual) PT INR Fibrinogen dRVVT Confirm Interp Factor V Activity POC ABG pH POC ABG pCO2 POC ABG pO2 ABG pO2 ABG HCO3 ABG Base Excess ABG Hemoglobin Oxyhemoglobin Sodium Potassium Chloride Carbon Dioxide BUN Creatinine Glucose POC Glucose 106 H Lactic Acid Calcium Ionized Calcium Phosphorus Magnesium Direct Bilirubin AST ALT Alkaline Phosphatase Lactate Dehydrogenase Troponin T C-Reactive Protein 24.40 H Total Protein Albumin Prealbumin Triglycerides Cholesterol LDL Cholesterol Direct HDL Cholesterol 25-OH Vitamin D Total PTH Intact Urine pH Urine WBC (Auto) Urine Creatinine Urine Total Protein Fluid Total Protein Vancomycin Trough Rheumatoid Factor Complement C4 Miscellaneous Test Crossmatch See Detail 01/08/17 01/08/17 01/08/17 10:37 11:33 15:15 WBC RBC Hgb Hct MCV MCH MCHC RDW Plt Count Lymph % (Auto) [place] % (Auto) Lymph # [place] # Baso # Seg Neutrophils % Seg Neuts % (Manual) Lymphocytes % (Manual) Monocytes % (Manual) Eosinophils % (Manual) Basophils % (Manual) Nucleated RBC % Seg Neutrophils # Seg Neutrophils # Man Lymphocytes # (Manual) Monocytes # (Manual) Eosinophils # (Manual) Basophils # (Manual) PT INR Fibrinogen dRVVT Confirm Interp Factor V Activity POC ABG pH POC ABG pCO2 POC ABG pO2 ABG pO2 ABG HCO3 ABG Base Excess ABG Hemoglobin Oxyhemoglobin Sodium Potassium Chloride Carbon Dioxide BUN Creatinine Glucose POC Glucose 157 H Lactic Acid 9.70 H* 9.10 H* Calcium Ionized Calcium Phosphorus Magnesium Direct Bilirubin AST ALT Alkaline Phosphatase Lactate Dehydrogenase Troponin T C-Reactive Protein Total Protein Albumin Prealbumin Triglycerides Cholesterol LDL Cholesterol Direct HDL Cholesterol 25-OH Vitamin D Total PTH Intact Urine pH Urine WBC (Auto) Urine Creatinine Urine Total Protein Fluid Total Protein Vancomycin Trough Rheumatoid Factor Complement C4 Miscellaneous Test Crossmatch 01/08/17 01/08/17 01/09/17 17:19 23:12 04:40 WBC RBC Hgb Hct MCV MCH MCHC RDW Plt Count Lymph % (Auto) [place] % (Auto) Lymph # [place] # Baso # Seg Neutrophils % Seg Neuts % (Manual) Lymphocytes % (Manual) Monocytes % (Manual) Eosinophils % (Manual) Basophils % (Manual) Nucleated RBC % Seg Neutrophils # Seg Neutrophils # Man Lymphocytes # (Manual) Monocytes # (Manual) Eosinophils # (Manual) Basophils # (Manual) PT INR Fibrinogen dRVVT Confirm Interp Factor V Activity POC ABG pH POC ABG pCO2 POC ABG pO2 ABG pO2 ABG HCO3 ABG Base Excess ABG Hemoglobin Oxyhemoglobin Sodium 147 H Potassium Chloride Carbon Dioxide BUN 82 H Creatinine 1.8 H Glucose 137 H POC Glucose 164 H 157 H Lactic Acid Calcium Ionized Calcium Phosphorus Magnesium Direct Bilirubin AST ALT Alkaline Phosphatase Lactate Dehydrogenase Troponin T C-Reactive Protein Total Protein Albumin Prealbumin Triglycerides Cholesterol LDL Cholesterol Direct HDL Cholesterol 25-OH Vitamin D Total PTH Intact Urine pH Urine WBC (Auto) Urine Creatinine Urine Total Protein Fluid Total Protein Vancomycin Trough Rheumatoid Factor Complement C4 Miscellaneous Test Crossmatch 01/09/17 01/09/17 01/09/17 05:42 08:22 10:57 WBC RBC Hgb Hct MCV MCH MCHC RDW Plt Count Lymph % (Auto) [place] % (Auto) Lymph # [place] # Baso # Seg Neutrophils % Seg Neuts % (Manual) Lymphocytes % (Manual) Monocytes % (Manual) Eosinophils % (Manual) Basophils % (Manual) Nucleated RBC % Seg Neutrophils # Seg Neutrophils # Man Lymphocytes # (Manual) Monocytes # (Manual) Eosinophils # (Manual) Basophils # (Manual) PT INR Fibrinogen dRVVT Confirm Interp Factor V Activity POC ABG pH POC ABG pCO2 POC ABG pO2 ABG pO2 ABG HCO3 ABG Base Excess ABG Hemoglobin Oxyhemoglobin Sodium Potassium Chloride Carbon Dioxide BUN Creatinine Glucose POC Glucose 156 H 122 H Lactic Acid 2.30 H* Calcium Ionized Calcium Phosphorus Magnesium Direct Bilirubin AST ALT Alkaline Phosphatase Lactate Dehydrogenase Troponin T C-Reactive Protein Total Protein Albumin Prealbumin Triglycerides Cholesterol LDL Cholesterol Direct HDL Cholesterol 25-OH Vitamin D Total PTH Intact Urine pH Urine WBC (Auto) Urine Creatinine Urine Total Protein Fluid Total Protein Vancomycin Trough Rheumatoid Factor Complement C4 Miscellaneous Test Crossmatch 01/09/17 01/09/17 01/09/17 13:30 17:14 18:45 WBC RBC Hgb Hct MCV MCH MCHC RDW Plt Count Lymph % (Auto) [place] % (Auto) Lymph # [place] # Baso # Seg Neutrophils % Seg Neuts % (Manual) Lymphocytes % (Manual) Monocytes % (Manual) Eosinophils % (Manual) Basophils % (Manual) Nucleated RBC % Seg Neutrophils # Seg Neutrophils # Man Lymphocytes # (Manual) Monocytes # (Manual) Eosinophils # (Manual) Basophils # (Manual) PT INR Fibrinogen dRVVT Confirm Interp Factor V Activity POC ABG pH POC ABG pCO2 POC ABG pO2 ABG pO2 ABG HCO3 ABG Base Excess ABG Hemoglobin Oxyhemoglobin Sodium Potassium Chloride Carbon Dioxide BUN Creatinine Glucose POC Glucose 127 H Lactic Acid Calcium Ionized Calcium Phosphorus Magnesium Direct Bilirubin AST ALT Alkaline Phosphatase Lactate Dehydrogenase Troponin T C-Reactive Protein 24.70 H Total Protein Albumin Prealbumin Triglycerides Cholesterol LDL Cholesterol Direct HDL Cholesterol 25-OH Vitamin D Total PTH Intact Urine pH Urine WBC (Auto) Urine Creatinine Urine Total Protein Fluid Total Protein Vancomycin Trough Rheumatoid Factor Complement C4 Miscellaneous Test Flexitest 1 H Crossmatch 01/10/17 01/10/17 01/10/17 01:21 04:00 04:00 WBC 18.1 H RBC 3.22 L Hgb 8.8 L Hct 27.0 L D MCV MCH 27 L MCHC RDW 17.0 H Plt Count Lymph % (Auto) [place] % (Auto) Lymph # [place] # Baso # Seg Neutrophils % Seg Neuts % (Manual) Lymphocytes % (Manual) Monocytes % (Manual) Eosinophils % (Manual) Basophils % (Manual) Nucleated RBC % Seg Neutrophils # Seg Neutrophils # Man Lymphocytes # (Manual) Monocytes # (Manual) Eosinophils # (Manual) Basophils # (Manual) PT INR Fibrinogen dRVVT Confirm Interp Factor V Activity POC ABG pH POC ABG pCO2 POC ABG pO2 ABG pO2 ABG HCO3 ABG Base Excess ABG Hemoglobin Oxyhemoglobin Sodium Potassium Chloride Carbon Dioxide BUN 59 H Creatinine 1.3 H Glucose 122 H POC Glucose 160 H Lactic Acid Calcium Ionized Calcium Phosphorus Magnesium Direct Bilirubin AST ALT Alkaline Phosphatase Lactate Dehydrogenase Troponin T C-Reactive Protein Total Protein Albumin Prealbumin Triglycerides Cholesterol LDL Cholesterol Direct HDL Cholesterol 25-OH Vitamin D Total PTH Intact Urine pH Urine WBC (Auto) Urine Creatinine Urine Total Protein Fluid Total Protein Vancomycin Trough Rheumatoid Factor Complement C4 Miscellaneous Test Crossmatch 01/10/17 01/10/17 01/10/17 05:36 12:14 17:55 WBC RBC Hgb Hct MCV MCH MCHC RDW Plt Count Lymph % (Auto) [place] % (Auto) Lymph # [place] # Baso # Seg Neutrophils % Seg Neuts % (Manual) Lymphocytes % (Manual) Monocytes % (Manual) Eosinophils % (Manual) Basophils % (Manual) Nucleated RBC % Seg Neutrophils # Seg Neutrophils # Man Lymphocytes # (Manual) Monocytes # (Manual) Eosinophils # (Manual) Basophils # (Manual) PT INR Fibrinogen dRVVT Confirm Interp Factor V Activity POC ABG pH POC ABG pCO2 POC ABG pO2 ABG pO2 ABG HCO3 ABG Base Excess ABG Hemoglobin Oxyhemoglobin Sodium Potassium Chloride Carbon Dioxide BUN Creatinine Glucose POC Glucose 163 H 120 H 144 H Lactic Acid Calcium Ionized Calcium Phosphorus Magnesium Direct Bilirubin AST ALT Alkaline Phosphatase Lactate Dehydrogenase Troponin T C-Reactive Protein Total Protein Albumin Prealbumin Triglycerides Cholesterol LDL Cholesterol Direct HDL Cholesterol 25-OH Vitamin D Total PTH Intact Urine pH Urine WBC (Auto) Urine Creatinine Urine Total Protein Fluid Total Protein Vancomycin Trough Rheumatoid Factor Complement C4 Miscellaneous Test Crossmatch 01/11/17 01/11/17 01/11/17 00:09 04:00 04:00 WBC 15.8 H RBC 3.04 L Hgb 8.2 L Hct 25.5 L MCV MCH 27 L MCHC RDW 17.3 H Plt Count Lymph % (Auto) [place] % (Auto) Lymph # [place] # Baso # Seg Neutrophils % Seg Neuts % (Manual) Lymphocytes % (Manual) Monocytes % (Manual) Eosinophils % (Manual) Basophils % (Manual) Nucleated RBC % Seg Neutrophils # Seg Neutrophils # Man Lymphocytes # (Manual) Monocytes # (Manual) Eosinophils # (Manual) Basophils # (Manual) PT INR Fibrinogen dRVVT Confirm Interp Factor V Activity POC ABG pH POC ABG pCO2 POC ABG pO2 ABG pO2 ABG HCO3 ABG Base Excess ABG Hemoglobin Oxyhemoglobin Sodium Potassium Chloride Carbon Dioxide BUN 78 H Creatinine 1.6 H Glucose 109 H POC Glucose 122 H Lactic Acid Calcium Ionized Calcium Phosphorus Magnesium Direct Bilirubin AST ALT Alkaline Phosphatase Lactate Dehydrogenase Troponin T C-Reactive Protein Total Protein Albumin Prealbumin Triglycerides Cholesterol LDL Cholesterol Direct HDL Cholesterol 25-OH Vitamin D Total PTH Intact Urine pH Urine WBC (Auto) Urine Creatinine Urine Total Protein Fluid Total Protein Vancomycin Trough Rheumatoid Factor Complement C4 Miscellaneous Test Crossmatch 01/11/17 01/11/17 01/11/17 12:46 18:23 23:42 WBC RBC Hgb Hct MCV MCH MCHC RDW Plt Count Lymph % (Auto) [place] % (Auto) Lymph # [place] # Baso # Seg Neutrophils % Seg Neuts % (Manual) Lymphocytes % (Manual) Monocytes % (Manual) Eosinophils % (Manual) Basophils % (Manual) Nucleated RBC % Seg Neutrophils # Seg Neutrophils # Man Lymphocytes # (Manual) Monocytes # (Manual) Eosinophils # (Manual) Basophils # (Manual) PT INR Fibrinogen dRVVT Confirm Interp Factor V Activity POC ABG pH POC ABG pCO2 POC ABG pO2 ABG pO2 ABG HCO3 ABG Base Excess ABG Hemoglobin Oxyhemoglobin Sodium Potassium Chloride Carbon Dioxide BUN Creatinine Glucose POC Glucose 148 H 125 H 124 H Lactic Acid Calcium Ionized Calcium Phosphorus Magnesium Direct Bilirubin AST ALT Alkaline Phosphatase Lactate Dehydrogenase Troponin T C-Reactive Protein Total Protein Albumin Prealbumin Triglycerides Cholesterol LDL Cholesterol Direct HDL Cholesterol 25-OH Vitamin D Total PTH Intact Urine pH Urine WBC (Auto) Urine Creatinine Urine Total Protein Fluid Total Protein Vancomycin Trough Rheumatoid Factor Complement C4 Miscellaneous Test Crossmatch 01/12/17 01/12/17 01/12/17 04:30 04:30 05:47 WBC 15.8 H RBC 3.31 L Hgb 8.9 L Hct 27.9 L MCV MCH 27 L MCHC RDW 17.4 H Plt Count Lymph % (Auto) [place] % (Auto) Lymph # [place] # Baso # Seg Neutrophils % Seg Neuts % (Manual) Lymphocytes % (Manual) Monocytes % (Manual) Eosinophils % (Manual) Basophils % (Manual) Nucleated RBC % Seg Neutrophils # Seg Neutrophils # Man Lymphocytes # (Manual) Monocytes # (Manual) Eosinophils # (Manual) Basophils # (Manual) PT INR Fibrinogen dRVVT Confirm Interp Factor V Activity POC ABG pH POC ABG pCO2 POC ABG pO2 ABG pO2 ABG HCO3 ABG Base Excess ABG Hemoglobin Oxyhemoglobin Sodium Potassium Chloride Carbon Dioxide BUN 57 H Creatinine Glucose 121 H POC Glucose 110 H Lactic Acid Calcium Ionized Calcium Phosphorus 2.10 L Magnesium Direct Bilirubin AST ALT Alkaline Phosphatase Lactate Dehydrogenase Troponin T C-Reactive Protein Total Protein Albumin Prealbumin Triglycerides Cholesterol LDL Cholesterol Direct HDL Cholesterol 25-OH Vitamin D Total PTH Intact Urine pH Urine WBC (Auto) Urine Creatinine Urine Total Protein Fluid Total Protein Vancomycin Trough Rheumatoid Factor Complement C4 Miscellaneous Test Crossmatch 01/12/17 01/12/17 01/12/17 11:35 17:45 23:14 WBC RBC Hgb Hct MCV MCH MCHC RDW Plt Count Lymph % (Auto) [place] % (Auto) Lymph # [place] # Baso # Seg Neutrophils % Seg Neuts % (Manual) Lymphocytes % (Manual) Monocytes % (Manual) Eosinophils % (Manual) Basophils % (Manual) Nucleated RBC % Seg Neutrophils # Seg Neutrophils # Man Lymphocytes # (Manual) Monocytes # (Manual) Eosinophils # (Manual) Basophils # (Manual) PT INR Fibrinogen dRVVT Confirm Interp Factor V Activity POC ABG pH POC ABG pCO2 POC ABG pO2 ABG pO2 ABG HCO3 ABG Base Excess ABG Hemoglobin Oxyhemoglobin Sodium Potassium Chloride Carbon Dioxide BUN Creatinine Glucose POC Glucose 146 H 117 H 123 H Lactic Acid Calcium Ionized Calcium Phosphorus Magnesium Direct Bilirubin AST ALT Alkaline Phosphatase Lactate Dehydrogenase Troponin T C-Reactive Protein Total Protein Albumin Prealbumin Triglycerides Cholesterol LDL Cholesterol Direct HDL Cholesterol 25-OH Vitamin D Total PTH Intact Urine pH Urine WBC (Auto) Urine Creatinine Urine Total Protein Fluid Total Protein Vancomycin Trough Rheumatoid Factor Complement C4 Miscellaneous Test Crossmatch 01/13/17 01/13/17 01/13/17 05:32 06:00 12:10 WBC RBC Hgb Hct MCV MCH MCHC RDW Plt Count Lymph % (Auto) [place] % (Auto) Lymph # [place] # Baso # Seg Neutrophils % Seg Neuts % (Manual) Lymphocytes % (Manual) Monocytes % (Manual) Eosinophils % (Manual) Basophils % (Manual) Nucleated RBC % Seg Neutrophils # Seg Neutrophils # Man Lymphocytes # (Manual) Monocytes # (Manual) Eosinophils # (Manual) Basophils # (Manual) PT INR Fibrinogen dRVVT Confirm Interp Factor V Activity POC ABG pH POC ABG pCO2 POC ABG pO2 ABG pO2 ABG HCO3 ABG Base Excess ABG Hemoglobin Oxyhemoglobin Sodium Potassium Chloride Carbon Dioxide BUN 80 H Creatinine 1.4 H Glucose 106 H POC Glucose 106 H Lactic Acid Calcium Ionized Calcium Phosphorus Magnesium Direct Bilirubin AST ALT Alkaline Phosphatase Lactate Dehydrogenase Troponin T C-Reactive Protein Total Protein Albumin Prealbumin Triglycerides Cholesterol LDL Cholesterol Direct HDL Cholesterol 25-OH Vitamin D Total PTH Intact Urine pH Urine WBC (Auto) Urine Creatinine Urine Total Protein Fluid Total Protein 3.0 L Vancomycin Trough Rheumatoid Factor Complement C4 Miscellaneous Test Crossmatch 01/13/17 01/13/17 01/13/17 12:17 15:50 17:30 WBC RBC Hgb Hct MCV MCH MCHC RDW Plt Count Lymph % (Auto) [place] % (Auto) Lymph # [place] # Baso # Seg Neutrophils % Seg Neuts % (Manual) Lymphocytes % (Manual) Monocytes % (Manual) Eosinophils % (Manual) Basophils % (Manual) Nucleated RBC % Seg Neutrophils # Seg Neutrophils # Man Lymphocytes # (Manual) Monocytes # (Manual) Eosinophils # (Manual) Basophils # (Manual) PT 15.4 H INR 1.16 H Fibrinogen dRVVT Confirm Interp Factor V Activity POC ABG pH POC ABG pCO2 POC ABG pO2 ABG pO2 ABG HCO3 ABG Base Excess ABG Hemoglobin Oxyhemoglobin Sodium Potassium Chloride Carbon Dioxide BUN Creatinine Glucose POC Glucose 168 H 110 H Lactic Acid Calcium Ionized Calcium Phosphorus Magnesium Direct Bilirubin AST ALT Alkaline Phosphatase Lactate Dehydrogenase Troponin T C-Reactive Protein Total Protein Albumin Prealbumin Triglycerides Cholesterol LDL Cholesterol Direct HDL Cholesterol 25-OH Vitamin D Total PTH Intact Urine pH Urine WBC (Auto) Urine Creatinine Urine Total Protein Fluid Total Protein Vancomycin Trough Rheumatoid Factor Complement C4 Miscellaneous Test Crossmatch 01/13/17 01/14/17 01/14/17 23:42 05:24 05:30 WBC RBC Hgb Hct MCV MCH MCHC RDW Plt Count Lymph % (Auto) [place] % (Auto) Lymph # [place] # Baso # Seg Neutrophils % Seg Neuts % (Manual) Lymphocytes % (Manual) Monocytes % (Manual) Eosinophils % (Manual) Basophils % (Manual) Nucleated RBC % Seg Neutrophils # Seg Neutrophils # Man Lymphocytes # (Manual) Monocytes # (Manual) Eosinophils # (Manual) Basophils # (Manual) PT INR Fibrinogen dRVVT Confirm Interp Factor V Activity POC ABG pH POC ABG pCO2 POC ABG pO2 ABG pO2 ABG HCO3 ABG Base Excess ABG Hemoglobin Oxyhemoglobin Sodium Potassium Chloride Carbon Dioxide BUN 58 H Creatinine Glucose 114 H POC Glucose 155 H 121 H Lactic Acid Calcium Ionized Calcium Phosphorus Magnesium Direct Bilirubin AST ALT Alkaline Phosphatase Lactate Dehydrogenase Troponin T C-Reactive Protein Total Protein Albumin Prealbumin Triglycerides Cholesterol LDL Cholesterol Direct HDL Cholesterol 25-OH Vitamin D Total PTH Intact Urine pH Urine WBC (Auto) Urine Creatinine Urine Total Protein Fluid Total Protein Vancomycin Trough Rheumatoid Factor Complement C4 Miscellaneous Test Crossmatch 01/14/17 01/14/17 01/15/17 12:48 17:36 00:15 WBC RBC Hgb Hct MCV MCH MCHC RDW Plt Count Lymph % (Auto) [place] % (Auto) Lymph # [place] # Baso # Seg Neutrophils % Seg Neuts % (Manual) Lymphocytes % (Manual) Monocytes % (Manual) Eosinophils % (Manual) Basophils % (Manual) Nucleated RBC % Seg Neutrophils # Seg Neutrophils # Man Lymphocytes # (Manual) Monocytes # (Manual) Eosinophils # (Manual) Basophils # (Manual) PT INR Fibrinogen dRVVT Confirm Interp Factor V Activity POC ABG pH POC ABG pCO2 POC ABG pO2 ABG pO2 ABG HCO3 ABG Base Excess ABG Hemoglobin Oxyhemoglobin Sodium Potassium Chloride Carbon Dioxide BUN Creatinine Glucose POC Glucose 130 H 135 H 132 H Lactic Acid Calcium Ionized Calcium Phosphorus Magnesium Direct Bilirubin AST ALT Alkaline Phosphatase Lactate Dehydrogenase Troponin T C-Reactive Protein Total Protein Albumin Prealbumin Triglycerides Cholesterol LDL Cholesterol Direct HDL Cholesterol 25-OH Vitamin D Total PTH Intact Urine pH Urine WBC (Auto) Urine Creatinine Urine Total Protein Fluid Total Protein Vancomycin Trough Rheumatoid Factor Complement C4 Miscellaneous Test Crossmatch 01/15/17 01/15/17 01/15/17 05:01 11:55 12:45 WBC 16.2 H RBC 3.00 L Hgb 8.1 L Hct 25.4 L MCV MCH 27 L MCHC RDW 17.6 H Plt Count Lymph % (Auto) 11.7 L [place] % (Auto) 7.8 H Lymph # [place] # 1.3 H Baso # Seg Neutrophils % 80.1 H Seg Neuts % (Manual) Lymphocytes % (Manual) Monocytes % (Manual) Eosinophils % (Manual) Basophils % (Manual) Nucleated RBC % Seg Neutrophils # 13.0 H Seg Neutrophils # Man Lymphocytes # (Manual) Monocytes # (Manual) Eosinophils # (Manual) Basophils # (Manual) PT INR Fibrinogen dRVVT Confirm Interp Factor V Activity POC ABG pH POC ABG pCO2 POC ABG pO2 ABG pO2 ABG HCO3 ABG Base Excess ABG Hemoglobin Oxyhemoglobin Sodium Potassium Chloride Carbon Dioxide BUN Creatinine Glucose POC Glucose 126 H 125 H Lactic Acid Calcium Ionized Calcium Phosphorus Magnesium Direct Bilirubin AST ALT Alkaline Phosphatase Lactate Dehydrogenase Troponin T C-Reactive Protein Total Protein Albumin Prealbumin Triglycerides Cholesterol LDL Cholesterol Direct HDL Cholesterol 25-OH Vitamin D Total PTH Intact Urine pH Urine WBC (Auto) Urine Creatinine Urine Total Protein Fluid Total Protein Vancomycin Trough Rheumatoid Factor Complement C4 Miscellaneous Test Crossmatch 01/15/17 01/15/17 01/15/17 12:45 17:31 23:39 WBC RBC Hgb Hct MCV MCH MCHC RDW Plt Count Lymph % (Auto) [place] % (Auto) Lymph # [place] # Baso # Seg Neutrophils % Seg Neuts % (Manual) Lymphocytes % (Manual) Monocytes % (Manual) Eosinophils % (Manual) Basophils % (Manual) Nucleated RBC % Seg Neutrophils # Seg Neutrophils # Man Lymphocytes # (Manual) Monocytes # (Manual) Eosinophils # (Manual) Basophils # (Manual) PT INR Fibrinogen dRVVT Confirm Interp Factor V Activity POC ABG pH POC ABG pCO2 POC ABG pO2 ABG pO2 ABG HCO3 ABG Base Excess ABG Hemoglobin Oxyhemoglobin Sodium 136 L Potassium Chloride Carbon Dioxide BUN 87 H Creatinine 1.7 H Glucose 108 H POC Glucose 129 H 112 H Lactic Acid Calcium Ionized Calcium Phosphorus Magnesium Direct Bilirubin AST ALT Alkaline Phosphatase Lactate Dehydrogenase Troponin T C-Reactive Protein Total Protein Albumin Prealbumin Triglycerides Cholesterol LDL Cholesterol Direct HDL Cholesterol 25-OH Vitamin D Total PTH Intact Urine pH Urine WBC (Auto) Urine Creatinine Urine Total Protein Fluid Total Protein Vancomycin Trough Rheumatoid Factor Complement C4 Miscellaneous Test Crossmatch 01/16/17 01/16/17 01/16/17 05:23 11:42 12:32 WBC RBC Hgb Hct MCV MCH MCHC RDW Plt Count Lymph % (Auto) [place] % (Auto) Lymph # [place] # Baso # Seg Neutrophils % Seg Neuts % (Manual) Lymphocytes % (Manual) Monocytes % (Manual) Eosinophils % (Manual) Basophils % (Manual) Nucleated RBC % Seg Neutrophils # Seg Neutrophils # Man Lymphocytes # (Manual) Monocytes # (Manual) Eosinophils # (Manual) Basophils # (Manual) PT INR Fibrinogen dRVVT Confirm Interp Factor V Activity POC ABG pH 7.499 H POC ABG pCO2 30.9 L POC ABG pO2 51 L ABG pO2 ABG HCO3 ABG Base Excess ABG Hemoglobin Oxyhemoglobin Sodium Potassium Chloride Carbon Dioxide BUN Creatinine Glucose POC Glucose 118 H 133 H Lactic Acid Calcium Ionized Calcium Phosphorus Magnesium Direct Bilirubin AST ALT Alkaline Phosphatase Lactate Dehydrogenase Troponin T C-Reactive Protein Total Protein Albumin Prealbumin Triglycerides Cholesterol LDL Cholesterol Direct HDL Cholesterol 25-OH Vitamin D Total PTH Intact Urine pH Urine WBC (Auto) Urine Creatinine Urine Total Protein Fluid Total Protein Vancomycin Trough Rheumatoid Factor Complement C4 Miscellaneous Test Crossmatch 01/16/17 01/16/17 01/16/17 17:52 23:57 Unknown WBC RBC Hgb Hct MCV MCH MCHC RDW Plt Count Lymph % (Auto) [place] % (Auto) Lymph # [place] # Baso # Seg Neutrophils % Seg Neuts % (Manual) Lymphocytes % (Manual) Monocytes % (Manual) Eosinophils % (Manual) Basophils % (Manual) Nucleated RBC % Seg Neutrophils # Seg Neutrophils # Man Lymphocytes # (Manual) Monocytes # (Manual) Eosinophils # (Manual) Basophils # (Manual) PT INR Fibrinogen dRVVT Confirm Interp Factor V Activity POC ABG pH POC ABG pCO2 POC ABG pO2 ABG pO2 ABG HCO3 ABG Base Excess ABG Hemoglobin Oxyhemoglobin Sodium 135 L Potassium Chloride Carbon Dioxide BUN 101 H Creatinine 1.8 H Glucose 117 H POC Glucose 130 H 143 H Lactic Acid Calcium Ionized Calcium Phosphorus 5.80 H Magnesium Direct Bilirubin AST ALT Alkaline Phosphatase Lactate Dehydrogenase Troponin T C-Reactive Protein Total Protein Albumin Prealbumin Triglycerides Cholesterol LDL Cholesterol Direct HDL Cholesterol 25-OH Vitamin D Total PTH Intact Urine pH Urine WBC (Auto) Urine Creatinine Urine Total Protein Fluid Total Protein Vancomycin Trough Rheumatoid Factor Complement C4 Miscellaneous Test Crossmatch 01/17/17 01/17/17 01/17/17 05:30 05:46 11:49 WBC RBC Hgb Hct MCV MCH MCHC RDW Plt Count Lymph % (Auto) [place] % (Auto) Lymph # [place] # Baso # Seg Neutrophils % Seg Neuts % (Manual) Lymphocytes % (Manual) Monocytes % (Manual) Eosinophils % (Manual) Basophils % (Manual) Nucleated RBC % Seg Neutrophils # Seg Neutrophils # Man Lymphocytes # (Manual) Monocytes # (Manual) Eosinophils # (Manual) Basophils # (Manual) PT INR Fibrinogen dRVVT Confirm Interp Factor V Activity POC ABG pH POC ABG pCO2 POC ABG pO2 ABG pO2 ABG HCO3 ABG Base Excess ABG Hemoglobin Oxyhemoglobin Sodium 134 L Potassium Chloride 95.8 L Carbon Dioxide BUN 66 H Creatinine 1.3 H Glucose 138 H POC Glucose 147 H 124 H Lactic Acid Calcium Ionized Calcium Phosphorus Magnesium Direct Bilirubin AST ALT Alkaline Phosphatase 254 H Lactate Dehydrogenase Troponin T C-Reactive Protein Total Protein Albumin 1.3 L Prealbumin Triglycerides Cholesterol LDL Cholesterol Direct HDL Cholesterol 25-OH Vitamin D Total PTH Intact Urine pH Urine WBC (Auto) Urine Creatinine Urine Total Protein Fluid Total Protein Vancomycin Trough Rheumatoid Factor Complement C4 Miscellaneous Test Crossmatch 01/17/17 01/17/17 01/18/17 17:30 23:41 05:15 WBC RBC Hgb Hct MCV MCH MCHC RDW Plt Count Lymph % (Auto) [place] % (Auto) Lymph # [place] # Baso # Seg Neutrophils % Seg Neuts % (Manual) Lymphocytes % (Manual) Monocytes % (Manual) Eosinophils % (Manual) Basophils % (Manual) Nucleated RBC % Seg Neutrophils # Seg Neutrophils # Man Lymphocytes # (Manual) Monocytes # (Manual) Eosinophils # (Manual) Basophils # (Manual) PT INR Fibrinogen dRVVT Confirm Interp Factor V Activity POC ABG pH POC ABG pCO2 POC ABG pO2 ABG pO2 ABG HCO3 ABG Base Excess ABG Hemoglobin Oxyhemoglobin Sodium Potassium Chloride Carbon Dioxide BUN 89 H Creatinine 1.7 H Glucose 118 H POC Glucose 137 H 119 H Lactic Acid Calcium Ionized Calcium Phosphorus Magnesium Direct Bilirubin AST ALT Alkaline Phosphatase Lactate Dehydrogenase Troponin T C-Reactive Protein Total Protein Albumin Prealbumin Triglycerides Cholesterol LDL Cholesterol Direct HDL Cholesterol 25-OH Vitamin D Total PTH Intact Urine pH Urine WBC (Auto) Urine Creatinine Urine Total Protein Fluid Total Protein Vancomycin Trough Rheumatoid Factor Complement C4 Miscellaneous Test Crossmatch 01/18/17 01/18/17 01/18/17 05:19 12:16 18:11 WBC RBC Hgb Hct MCV MCH MCHC RDW Plt Count Lymph % (Auto) [place] % (Auto) Lymph # [place] # Baso # Seg Neutrophils % Seg Neuts % (Manual) Lymphocytes % (Manual) Monocytes % (Manual) Eosinophils % (Manual) Basophils % (Manual) Nucleated RBC % Seg Neutrophils # Seg Neutrophils # Man Lymphocytes # (Manual) Monocytes # (Manual) Eosinophils # (Manual) Basophils # (Manual) PT INR Fibrinogen dRVVT Confirm Interp Factor V Activity POC ABG pH POC ABG pCO2 POC ABG pO2 ABG pO2 ABG HCO3 ABG Base Excess ABG Hemoglobin Oxyhemoglobin Sodium Potassium Chloride Carbon Dioxide BUN Creatinine Glucose POC Glucose 134 H 188 H 113 H Lactic Acid Calcium Ionized Calcium Phosphorus Magnesium Direct Bilirubin AST ALT Alkaline Phosphatase Lactate Dehydrogenase Troponin T C-Reactive Protein Total Protein Albumin Prealbumin Triglycerides Cholesterol LDL Cholesterol Direct HDL Cholesterol 25-OH Vitamin D Total PTH Intact Urine pH Urine WBC (Auto) Urine Creatinine Urine Total Protein Fluid Total Protein Vancomycin Trough Rheumatoid Factor Complement C4 Miscellaneous Test Crossmatch 01/19/17 01/19/17 01/19/17 00:00 05:30 05:36 WBC RBC Hgb Hct MCV MCH MCHC RDW Plt Count Lymph % (Auto) [place] % (Auto) Lymph # [place] # Baso # Seg Neutrophils % Seg Neuts % (Manual) Lymphocytes % (Manual) Monocytes % (Manual) Eosinophils % (Manual) Basophils % (Manual) Nucleated RBC % Seg Neutrophils # Seg Neutrophils # Man Lymphocytes # (Manual) Monocytes # (Manual) Eosinophils # (Manual) Basophils # (Manual) PT INR Fibrinogen dRVVT Confirm Interp Factor V Activity POC ABG pH POC ABG pCO2 POC ABG pO2 ABG pO2 ABG HCO3 ABG Base Excess ABG Hemoglobin Oxyhemoglobin Sodium Potassium Chloride Carbon Dioxide BUN 70 H Creatinine 1.5 H Glucose 121 H POC Glucose 137 H 155 H Lactic Acid Calcium Ionized Calcium Phosphorus 2.10 L D Magnesium Direct Bilirubin AST ALT Alkaline Phosphatase Lactate Dehydrogenase Troponin T C-Reactive Protein Total Protein Albumin Prealbumin Triglycerides Cholesterol LDL Cholesterol Direct HDL Cholesterol 25-OH Vitamin D Total PTH Intact Urine pH Urine WBC (Auto) Urine Creatinine Urine Total Protein Fluid Total Protein Vancomycin Trough Rheumatoid Factor Complement C4 Miscellaneous Test Crossmatch 01/19/17 01/19/17 01/19/17 11:59 15:32 17:57 WBC RBC Hgb Hct MCV MCH MCHC RDW Plt Count Lymph % (Auto) [place] % (Auto) Lymph # [place] # Baso # Seg Neutrophils % Seg Neuts % (Manual) Lymphocytes % (Manual) Monocytes % (Manual) Eosinophils % (Manual) Basophils % (Manual) Nucleated RBC % Seg Neutrophils # Seg Neutrophils # Man Lymphocytes # (Manual) Monocytes # (Manual) Eosinophils # (Manual) Basophils # (Manual) PT INR Fibrinogen dRVVT Confirm Interp Factor V Activity POC ABG pH POC ABG pCO2 33.1 L POC ABG pO2 76 L ABG pO2 ABG HCO3 ABG Base Excess ABG Hemoglobin Oxyhemoglobin Sodium Potassium Chloride Carbon Dioxide BUN Creatinine Glucose POC Glucose 156 H 129 H Lactic Acid Calcium Ionized Calcium Phosphorus Magnesium Direct Bilirubin AST ALT Alkaline Phosphatase Lactate Dehydrogenase Troponin T C-Reactive Protein Total Protein Albumin Prealbumin Triglycerides Cholesterol LDL Cholesterol Direct HDL Cholesterol 25-OH Vitamin D Total PTH Intact Urine pH Urine WBC (Auto) Urine Creatinine Urine Total Protein Fluid Total Protein Vancomycin Trough Rheumatoid Factor Complement C4 Miscellaneous Test Crossmatch 01/19/17 01/20/17 01/20/17 23:49 04:00 05:21 WBC RBC Hgb Hct MCV MCH MCHC RDW Plt Count Lymph % (Auto) [place] % (Auto) Lymph # [place] # Baso # Seg Neutrophils % Seg Neuts % (Manual) Lymphocytes % (Manual) Monocytes % (Manual) Eosinophils % (Manual) Basophils % (Manual) Nucleated RBC % Seg Neutrophils # Seg Neutrophils # Man Lymphocytes # (Manual) Monocytes # (Manual) Eosinophils # (Manual) Basophils # (Manual) PT INR Fibrinogen dRVVT Confirm Interp Factor V Activity POC ABG pH POC ABG pCO2 POC ABG pO2 ABG pO2 ABG HCO3 ABG Base Excess ABG Hemoglobin Oxyhemoglobin Sodium Potassium Chloride Carbon Dioxide BUN 96 H Creatinine 1.9 H Glucose 106 H POC Glucose 125 H 130 H Lactic Acid Calcium Ionized Calcium Phosphorus 2.40 L Magnesium Direct Bilirubin AST ALT Alkaline Phosphatase Lactate Dehydrogenase Troponin T C-Reactive Protein Total Protein Albumin Prealbumin Triglycerides Cholesterol LDL Cholesterol Direct HDL Cholesterol 25-OH Vitamin D Total PTH Intact Urine pH Urine WBC (Auto) Urine Creatinine Urine Total Protein Fluid Total Protein Vancomycin Trough Rheumatoid Factor Complement C4 Miscellaneous Test Crossmatch 01/20/17 01/20/17 01/20/17 11:58 12:17 17:26 WBC RBC Hgb Hct MCV MCH MCHC RDW Plt Count Lymph % (Auto) [place] % (Auto) Lymph # [place] # Baso # Seg Neutrophils % Seg Neuts % (Manual) Lymphocytes % (Manual) Monocytes % (Manual) Eosinophils % (Manual) Basophils % (Manual) Nucleated RBC % Seg Neutrophils # Seg Neutrophils # Man Lymphocytes # (Manual) Monocytes # (Manual) Eosinophils # (Manual) Basophils # (Manual) PT INR Fibrinogen dRVVT Confirm Interp Factor V Activity POC ABG pH POC ABG pCO2 POC ABG pO2 70 L ABG pO2 ABG HCO3 ABG Base Excess ABG Hemoglobin Oxyhemoglobin Sodium Potassium Chloride Carbon Dioxide BUN Creatinine Glucose POC Glucose 118 H 154 H Lactic Acid Calcium Ionized Calcium Phosphorus Magnesium Direct Bilirubin AST ALT Alkaline Phosphatase Lactate Dehydrogenase Troponin T C-Reactive Protein Total Protein Albumin Prealbumin Triglycerides Cholesterol LDL Cholesterol Direct HDL Cholesterol 25-OH Vitamin D Total PTH Intact Urine pH Urine WBC (Auto) Urine Creatinine Urine Total Protein Fluid Total Protein Vancomycin Trough Rheumatoid Factor Complement C4 Miscellaneous Test Crossmatch 01/21/17 01/21/17 01/21/17 04:00 04:56 11:46 WBC RBC Hgb Hct MCV MCH MCHC RDW Plt Count Lymph % (Auto) [place] % (Auto) Lymph # [place] # Baso # Seg Neutrophils % Seg Neuts % (Manual) Lymphocytes % (Manual) Monocytes % (Manual) Eosinophils % (Manual) Basophils % (Manual) Nucleated RBC % Seg Neutrophils # Seg Neutrophils # Man Lymphocytes # (Manual) Monocytes # (Manual) Eosinophils # (Manual) Basophils # (Manual) PT INR Fibrinogen dRVVT Confirm Interp Factor V Activity POC ABG pH POC ABG pCO2 POC ABG pO2 ABG pO2 ABG HCO3 ABG Base Excess ABG Hemoglobin Oxyhemoglobin Sodium Potassium 3.5 L Chloride 97.4 L Carbon Dioxide BUN 66 H Creatinine 1.4 H Glucose POC Glucose 116 H 106 H Lactic Acid Calcium Ionized Calcium Phosphorus 2.10 L Magnesium Direct Bilirubin AST ALT Alkaline Phosphatase Lactate Dehydrogenase Troponin T C-Reactive Protein Total Protein Albumin Prealbumin Triglycerides Cholesterol LDL Cholesterol Direct HDL Cholesterol 25-OH Vitamin D Total PTH Intact Urine pH Urine WBC (Auto) Urine Creatinine Urine Total Protein Fluid Total Protein Vancomycin Trough Rheumatoid Factor Complement C4 Miscellaneous Test Crossmatch 01/21/17 01/21/17 01/22/17 17:25 23:49 05:35 WBC RBC Hgb Hct MCV MCH MCHC RDW Plt Count Lymph % (Auto) [place] % (Auto) Lymph # [place] # Baso # Seg Neutrophils % Seg Neuts % (Manual) Lymphocytes % (Manual) Monocytes % (Manual) Eosinophils % (Manual) Basophils % (Manual) Nucleated RBC % Seg Neutrophils # Seg Neutrophils # Man Lymphocytes # (Manual) Monocytes # (Manual) Eosinophils # (Manual) Basophils # (Manual) PT INR Fibrinogen dRVVT Confirm Interp Factor V Activity POC ABG pH POC ABG pCO2 POC ABG pO2 ABG pO2 ABG HCO3 ABG Base Excess ABG Hemoglobin Oxyhemoglobin Sodium Potassium Chloride Carbon Dioxide BUN Creatinine Glucose POC Glucose 106 H 133 H 107 H Lactic Acid Calcium Ionized Calcium Phosphorus Magnesium Direct Bilirubin AST ALT Alkaline Phosphatase Lactate Dehydrogenase Troponin T C-Reactive Protein Total Protein Albumin Prealbumin Triglycerides Cholesterol LDL Cholesterol Direct HDL Cholesterol 25-OH Vitamin D Total PTH Intact Urine pH Urine WBC (Auto) Urine Creatinine Urine Total Protein Fluid Total Protein Vancomycin Trough Rheumatoid Factor Complement C4 Miscellaneous Test Crossmatch 01/22/17 01/22/17 01/22/17 07:20 07:20 11:31 WBC RBC 2.75 L Hgb 7.5 L Hct 22.7 L MCV MCH 27 L MCHC RDW 17.5 H Plt Count Lymph % (Auto) [place] % (Auto) Lymph # [place] # Baso # Seg Neutrophils % Seg Neuts % (Manual) Lymphocytes % (Manual) Monocytes % (Manual) Eosinophils % (Manual) Basophils % (Manual) Nucleated RBC % Seg Neutrophils # Seg Neutrophils # Man Lymphocytes # (Manual) Monocytes # (Manual) Eosinophils # (Manual) Basophils # (Manual) PT INR Fibrinogen dRVVT Confirm Interp Factor V Activity POC ABG pH POC ABG pCO2 POC ABG pO2 ABG pO2 ABG HCO3 ABG Base Excess ABG Hemoglobin Oxyhemoglobin Sodium Potassium 3.3 L Chloride Carbon Dioxide BUN 42 H Creatinine Glucose 105 H POC Glucose 124 H Lactic Acid Calcium Ionized Calcium Phosphorus 1.70 L Magnesium Direct Bilirubin AST ALT Alkaline Phosphatase Lactate Dehydrogenase Troponin T C-Reactive Protein Total Protein Albumin Prealbumin Triglycerides Cholesterol LDL Cholesterol Direct HDL Cholesterol 25-OH Vitamin D Total PTH Intact Urine pH Urine WBC (Auto) Urine Creatinine Urine Total Protein Fluid Total Protein Vancomycin Trough Rheumatoid Factor Complement C4 Miscellaneous Test Crossmatch 01/22/17 01/22/17 01/23/17 17:16 23:35 05:35 WBC RBC Hgb Hct MCV MCH MCHC RDW Plt Count Lymph % (Auto) [place] % (Auto) Lymph # [place] # Baso # Seg Neutrophils % Seg Neuts % (Manual) Lymphocytes % (Manual) Monocytes % (Manual) Eosinophils % (Manual) Basophils % (Manual) Nucleated RBC % Seg Neutrophils # Seg Neutrophils # Man Lymphocytes # (Manual) Monocytes # (Manual) Eosinophils # (Manual) Basophils # (Manual) PT INR Fibrinogen dRVVT Confirm Interp Factor V Activity POC ABG pH POC ABG pCO2 POC ABG pO2 ABG pO2 ABG HCO3 ABG Base Excess ABG Hemoglobin Oxyhemoglobin Sodium Potassium Chloride Carbon Dioxide BUN Creatinine Glucose POC Glucose 135 H 120 H 111 H Lactic Acid Calcium Ionized Calcium Phosphorus Magnesium Direct Bilirubin AST ALT Alkaline Phosphatase Lactate Dehydrogenase Troponin T C-Reactive Protein Total Protein Albumin Prealbumin Triglycerides Cholesterol LDL Cholesterol Direct HDL Cholesterol 25-OH Vitamin D Total PTH Intact Urine pH Urine WBC (Auto) Urine Creatinine Urine Total Protein Fluid Total Protein Vancomycin Trough Rheumatoid Factor Complement C4 Miscellaneous Test Crossmatch 01/23/17 01/23/17 01/23/17 06:10 17:27 23:44 WBC RBC Hgb Hct MCV MCH MCHC RDW Plt Count Lymph % (Auto) [place] % (Auto) Lymph # [place] # Baso # Seg Neutrophils % Seg Neuts % (Manual) Lymphocytes % (Manual) Monocytes % (Manual) Eosinophils % (Manual) Basophils % (Manual) Nucleated RBC % Seg Neutrophils # Seg Neutrophils # Man Lymphocytes # (Manual) Monocytes # (Manual) Eosinophils # (Manual) Basophils # (Manual) PT INR Fibrinogen dRVVT Confirm Interp Factor V Activity POC ABG pH POC ABG pCO2 POC ABG pO2 ABG pO2 ABG HCO3 ABG Base Excess ABG Hemoglobin Oxyhemoglobin Sodium Potassium 3.3 L Chloride Carbon Dioxide BUN 66 H Creatinine 1.3 H Glucose 109 H POC Glucose 120 H 115 H Lactic Acid Calcium Ionized Calcium Phosphorus 2.20 L D Magnesium Direct Bilirubin AST ALT Alkaline Phosphatase Lactate Dehydrogenase Troponin T C-Reactive Protein Total Protein Albumin Prealbumin Triglycerides Cholesterol LDL Cholesterol Direct HDL Cholesterol 25-OH Vitamin D Total PTH Intact Urine pH Urine WBC (Auto) Urine Creatinine Urine Total Protein Fluid Total Protein Vancomycin Trough Rheumatoid Factor Complement C4 Miscellaneous Test Crossmatch 01/24/17 01/24/17 01/24/17 05:19 05:50 12:19 WBC RBC Hgb Hct MCV MCH MCHC RDW Plt Count Lymph % (Auto) [place] % (Auto) Lymph # [place] # Baso # Seg Neutrophils % Seg Neuts % (Manual) Lymphocytes % (Manual) Monocytes % (Manual) Eosinophils % (Manual) Basophils % (Manual) Nucleated RBC % Seg Neutrophils # Seg Neutrophils # Man Lymphocytes # (Manual) Monocytes # (Manual) Eosinophils # (Manual) Basophils # (Manual) PT INR Fibrinogen dRVVT Confirm Interp Factor V Activity POC ABG pH POC ABG pCO2 POC ABG pO2 ABG pO2 ABG HCO3 ABG Base Excess ABG Hemoglobin Oxyhemoglobin Sodium Potassium Chloride Carbon Dioxide BUN 47 H Creatinine Glucose 117 H POC Glucose 126 H 119 H Lactic Acid Calcium Ionized Calcium Phosphorus 2.30 L Magnesium 1.60 L Direct Bilirubin AST ALT Alkaline Phosphatase Lactate Dehydrogenase Troponin T C-Reactive Protein Total Protein Albumin Prealbumin Triglycerides Cholesterol LDL Cholesterol Direct HDL Cholesterol 25-OH Vitamin D Total PTH Intact Urine pH Urine WBC (Auto) Urine Creatinine Urine Total Protein Fluid Total Protein Vancomycin Trough Rheumatoid Factor Complement C4 Miscellaneous Test Crossmatch 01/24/17 01/25/17 01/25/17 17:08 00:37 04:00 WBC RBC Hgb Hct MCV MCH MCHC RDW Plt Count Lymph % (Auto) [place] % (Auto) Lymph # [place] # Baso # Seg Neutrophils % Seg Neuts % (Manual) Lymphocytes % (Manual) Monocytes % (Manual) Eosinophils % (Manual) Basophils % (Manual) Nucleated RBC % Seg Neutrophils # Seg Neutrophils # Man Lymphocytes # (Manual) Monocytes # (Manual) Eosinophils # (Manual) Basophils # (Manual) PT INR Fibrinogen dRVVT Confirm Interp Factor V Activity POC ABG pH POC ABG pCO2 POC ABG pO2 ABG pO2 ABG HCO3 ABG Base Excess ABG Hemoglobin Oxyhemoglobin Sodium Potassium Chloride Carbon Dioxide BUN 72 H Creatinine 1.3 H Glucose POC Glucose 127 H 110 H Lactic Acid Calcium Ionized Calcium Phosphorus Magnesium Direct Bilirubin AST ALT Alkaline Phosphatase Lactate Dehydrogenase Troponin T C-Reactive Protein Total Protein Albumin Prealbumin Triglycerides Cholesterol LDL Cholesterol Direct HDL Cholesterol 25-OH Vitamin D Total PTH Intact Urine pH Urine WBC (Auto) Urine Creatinine Urine Total Protein Fluid Total Protein Vancomycin Trough Rheumatoid Factor Complement C4 Miscellaneous Test Crossmatch 01/25/17 01/25/17 01/25/17 04:00 11:15 13:05 WBC RBC 2.49 L Hgb 6.7 L Hct 20.9 L MCV MCH 27 L MCHC RDW 18.8 H Plt Count Lymph % (Auto) [place] % (Auto) 10.1 H Lymph # [place] # 1.0 H Baso # Seg Neutrophils % Seg Neuts % (Manual) Lymphocytes % (Manual) Monocytes % (Manual) Eosinophils % (Manual) Basophils % (Manual) Nucleated RBC % Seg Neutrophils # Seg Neutrophils # Man Lymphocytes # (Manual) Monocytes # (Manual) Eosinophils # (Manual) Basophils # (Manual) PT INR Fibrinogen dRVVT Confirm Interp Factor V Activity POC ABG pH POC ABG pCO2 POC ABG pO2 ABG pO2 ABG HCO3 ABG Base Excess ABG Hemoglobin Oxyhemoglobin Sodium Potassium Chloride Carbon Dioxide BUN Creatinine Glucose POC Glucose 128 H Lactic Acid Calcium Ionized Calcium Phosphorus Magnesium Direct Bilirubin AST ALT Alkaline Phosphatase Lactate Dehydrogenase Troponin T C-Reactive Protein Total Protein Albumin Prealbumin Triglycerides Cholesterol LDL Cholesterol Direct HDL Cholesterol 25-OH Vitamin D Total PTH Intact Urine pH Urine WBC (Auto) Urine Creatinine Urine Total Protein Fluid Total Protein Vancomycin Trough Rheumatoid Factor Complement C4 Miscellaneous Test Crossmatch See Detail 01/25/17 01/25/17 01/26/17 18:02 23:07 01:20 WBC RBC Hgb Hct MCV MCH MCHC RDW Plt Count Lymph % (Auto) [place] % (Auto) Lymph # [place] # Baso # Seg Neutrophils % Seg Neuts % (Manual) Lymphocytes % (Manual) Monocytes % (Manual) Eosinophils % (Manual) Basophils % (Manual) Nucleated RBC % Seg Neutrophils # Seg Neutrophils # Man Lymphocytes # (Manual) Monocytes # (Manual) Eosinophils # (Manual) Basophils # (Manual) PT INR Fibrinogen dRVVT Confirm Interp Factor V Activity POC ABG pH POC ABG pCO2 POC ABG pO2 ABG pO2 ABG HCO3 ABG Base Excess ABG Hemoglobin Oxyhemoglobin Sodium Potassium Chloride Carbon Dioxide BUN Creatinine Glucose POC Glucose 120 H 123 H 112 H Lactic Acid Calcium Ionized Calcium Phosphorus Magnesium Direct Bilirubin AST ALT Alkaline Phosphatase Lactate Dehydrogenase Troponin T C-Reactive Protein Total Protein Albumin Prealbumin Triglycerides Cholesterol LDL Cholesterol Direct HDL Cholesterol 25-OH Vitamin D Total PTH Intact Urine pH Urine WBC (Auto) Urine Creatinine Urine Total Protein Fluid Total Protein Vancomycin Trough Rheumatoid Factor Complement C4 Miscellaneous Test Crossmatch 01/26/17 01/26/17 01/26/17 04:20 04:20 11:23 WBC 13.1 H RBC 3.28 L Hgb 9.0 L Hct 26.9 L D MCV MCH 27 L MCHC RDW 17.2 H Plt Count Lymph % (Auto) [place] % (Auto) 9.0 H Lymph # [place] # 1.2 H Baso # Seg Neutrophils % 73.1 H Seg Neuts % (Manual) Lymphocytes % (Manual) Monocytes % (Manual) Eosinophils % (Manual) Basophils % (Manual) Nucleated RBC % Seg Neutrophils # 9.6 H Seg Neutrophils # Man Lymphocytes # (Manual) Monocytes # (Manual) Eosinophils # (Manual) Basophils # (Manual) PT INR Fibrinogen dRVVT Confirm Interp Factor V Activity POC ABG pH POC ABG pCO2 POC ABG pO2 ABG pO2 ABG HCO3 ABG Base Excess ABG Hemoglobin Oxyhemoglobin Sodium Potassium Chloride Carbon Dioxide BUN 51 H Creatinine Glucose 117 H POC Glucose 125 H Lactic Acid Calcium Ionized Calcium Phosphorus Magnesium Direct Bilirubin AST ALT Alkaline Phosphatase Lactate Dehydrogenase Troponin T C-Reactive Protein Total Protein Albumin Prealbumin Triglycerides Cholesterol LDL Cholesterol Direct HDL Cholesterol 25-OH Vitamin D Total PTH Intact Urine pH Urine WBC (Auto) Urine Creatinine Urine Total Protein Fluid Total Protein Vancomycin Trough Rheumatoid Factor Complement C4 Miscellaneous Test Crossmatch 01/26/17 01/27/17 01/27/17 17:11 00:30 04:00 WBC RBC Hgb Hct MCV MCH MCHC RDW Plt Count Lymph % (Auto) [place] % (Auto) Lymph # [place] # Baso # Seg Neutrophils % Seg Neuts % (Manual) Lymphocytes % (Manual) Monocytes % (Manual) Eosinophils % (Manual) Basophils % (Manual) Nucleated RBC % Seg Neutrophils # Seg Neutrophils # Man Lymphocytes # (Manual) Monocytes # (Manual) Eosinophils # (Manual) Basophils # (Manual) PT INR Fibrinogen dRVVT Confirm Interp Factor V Activity POC ABG pH POC ABG pCO2 POC ABG pO2 ABG pO2 ABG HCO3 ABG Base Excess ABG Hemoglobin Oxyhemoglobin Sodium Potassium Chloride 97.7 L Carbon Dioxide 21 L BUN 79 H Creatinine 1.7 H D Glucose 112 H POC Glucose 133 H 135 H Lactic Acid Calcium Ionized Calcium Phosphorus 5.00 H D Magnesium Direct Bilirubin AST ALT Alkaline Phosphatase Lactate Dehydrogenase Troponin T C-Reactive Protein Total Protein Albumin Prealbumin Triglycerides Cholesterol LDL Cholesterol Direct HDL Cholesterol 25-OH Vitamin D Total PTH Intact Urine pH Urine WBC (Auto) Urine Creatinine Urine Total Protein Fluid Total Protein Vancomycin Trough Rheumatoid Factor Complement C4 Miscellaneous Test Crossmatch 01/27/17 01/27/17 01/27/17 05:12 12:18 17:25 WBC RBC Hgb Hct MCV MCH MCHC RDW Plt Count Lymph % (Auto) [place] % (Auto) Lymph # [place] # Baso # Seg Neutrophils % Seg Neuts % (Manual) Lymphocytes % (Manual) Monocytes % (Manual) Eosinophils % (Manual) Basophils % (Manual) Nucleated RBC % Seg Neutrophils # Seg Neutrophils # Man Lymphocytes # (Manual) Monocytes # (Manual) Eosinophils # (Manual) Basophils # (Manual) PT INR Fibrinogen dRVVT Confirm Interp Factor V Activity POC ABG pH POC ABG pCO2 POC ABG pO2 ABG pO2 ABG HCO3 ABG Base Excess ABG Hemoglobin Oxyhemoglobin Sodium Potassium Chloride Carbon Dioxide BUN Creatinine Glucose POC Glucose 116 H 153 H 152 H Lactic Acid Calcium Ionized Calcium Phosphorus Magnesium Direct Bilirubin AST ALT Alkaline Phosphatase Lactate Dehydrogenase Troponin T C-Reactive Protein Total Protein Albumin Prealbumin Triglycerides Cholesterol LDL Cholesterol Direct HDL Cholesterol 25-OH Vitamin D Total PTH Intact Urine pH Urine WBC (Auto) Urine Creatinine Urine Total Protein Fluid Total Protein Vancomycin Trough Rheumatoid Factor Complement C4 Miscellaneous Test Crossmatch 01/27/17 01/28/17 01/28/17 23:42 04:00 04:00 WBC 14.4 H RBC 2.82 L Hgb 7.4 L Hct 23.5 L MCV MCH 26 L MCHC RDW 17.6 H Plt Count Lymph % (Auto) 10.2 L [place] % (Auto) 11.0 H Lymph # [place] # 1.6 H Baso # Seg Neutrophils % 78.0 H Seg Neuts % (Manual) Lymphocytes % (Manual) Monocytes % (Manual) Eosinophils % (Manual) Basophils % (Manual) Nucleated RBC % Seg Neutrophils # 11.3 H Seg Neutrophils # Man Lymphocytes # (Manual) Monocytes # (Manual) Eosinophils # (Manual) Basophils # (Manual) PT INR Fibrinogen dRVVT Confirm Interp Factor V Activity POC ABG pH POC ABG pCO2 POC ABG pO2 ABG pO2 ABG HCO3 ABG Base Excess ABG Hemoglobin Oxyhemoglobin Sodium Potassium Chloride Carbon Dioxide BUN 55 H Creatinine 1.3 H Glucose 114 H POC Glucose 121 H Lactic Acid Calcium Ionized Calcium Phosphorus Magnesium Direct Bilirubin AST ALT Alkaline Phosphatase Lactate Dehydrogenase Troponin T C-Reactive Protein Total Protein Albumin 1.4 L Prealbumin Triglycerides Cholesterol LDL Cholesterol Direct HDL Cholesterol 25-OH Vitamin D Total PTH Intact Urine pH Urine WBC (Auto) Urine Creatinine Urine Total Protein Fluid Total Protein Vancomycin Trough Rheumatoid Factor Complement C4 Miscellaneous Test Crossmatch 01/28/17 01/28/17 01/29/17 04:59 12:30 00:02 WBC RBC Hgb Hct MCV MCH MCHC RDW Plt Count Lymph % (Auto) [place] % (Auto) Lymph # [place] # Baso # Seg Neutrophils % Seg Neuts % (Manual) Lymphocytes % (Manual) Monocytes % (Manual) Eosinophils % (Manual) Basophils % (Manual) Nucleated RBC % Seg Neutrophils # Seg Neutrophils # Man Lymphocytes # (Manual) Monocytes # (Manual) Eosinophils # (Manual) Basophils # (Manual) PT INR Fibrinogen dRVVT Confirm Interp Factor V Activity POC ABG pH POC ABG pCO2 POC ABG pO2 ABG pO2 ABG HCO3 ABG Base Excess ABG Hemoglobin Oxyhemoglobin Sodium Potassium Chloride Carbon Dioxide BUN Creatinine Glucose POC Glucose 126 H 119 H 138 H Lactic Acid Calcium Ionized Calcium Phosphorus Magnesium Direct Bilirubin AST ALT Alkaline Phosphatase Lactate Dehydrogenase Troponin T C-Reactive Protein Total Protein Albumin Prealbumin Triglycerides Cholesterol LDL Cholesterol Direct HDL Cholesterol 25-OH Vitamin D Total PTH Intact Urine pH Urine WBC (Auto) Urine Creatinine Urine Total Protein Fluid Total Protein Vancomycin Trough Rheumatoid Factor Complement C4 Miscellaneous Test Crossmatch 01/29/17 01/29/17 01/29/17 04:58 06:15 11:35 WBC RBC Hgb Hct MCV MCH MCHC RDW Plt Count Lymph % (Auto) [place] % (Auto) Lymph # [place] # Baso # Seg Neutrophils % Seg Neuts % (Manual) Lymphocytes % (Manual) Monocytes % (Manual) Eosinophils % (Manual) Basophils % (Manual) Nucleated RBC % Seg Neutrophils # Seg Neutrophils # Man Lymphocytes # (Manual) Monocytes # (Manual) Eosinophils # (Manual) Basophils # (Manual) PT INR Fibrinogen dRVVT Confirm Interp Factor V Activity POC ABG pH POC ABG pCO2 POC ABG pO2 ABG pO2 ABG HCO3 ABG Base Excess ABG Hemoglobin Oxyhemoglobin Sodium Potassium Chloride Carbon Dioxide BUN 85 H Creatinine 1.7 H Glucose 105 H POC Glucose 114 H 110 H Lactic Acid Calcium Ionized Calcium Phosphorus Magnesium 2.40 H Direct Bilirubin AST ALT Alkaline Phosphatase Lactate Dehydrogenase Troponin T C-Reactive Protein Total Protein Albumin Prealbumin Triglycerides Cholesterol LDL Cholesterol Direct HDL Cholesterol 25-OH Vitamin D Total PTH Intact Urine pH Urine WBC (Auto) Urine Creatinine Urine Total Protein Fluid Total Protein Vancomycin Trough Rheumatoid Factor Complement C4 Miscellaneous Test Crossmatch 01/29/17 01/29/17 01/30/17 18:24 23:41 05:12 WBC RBC Hgb Hct MCV MCH MCHC RDW Plt Count Lymph % (Auto) [place] % (Auto) Lymph # [place] # Baso # Seg Neutrophils % Seg Neuts % (Manual) Lymphocytes % (Manual) Monocytes % (Manual) Eosinophils % (Manual) Basophils % (Manual) Nucleated RBC % Seg Neutrophils # Seg Neutrophils # Man Lymphocytes # (Manual) Monocytes # (Manual) Eosinophils # (Manual) Basophils # (Manual) PT INR Fibrinogen dRVVT Confirm Interp Factor V Activity POC ABG pH POC ABG pCO2 POC ABG pO2 ABG pO2 ABG HCO3 ABG Base Excess ABG Hemoglobin Oxyhemoglobin Sodium Potassium Chloride Carbon Dioxide BUN Creatinine Glucose POC Glucose 109 H 134 H 109 H Lactic Acid Calcium Ionized Calcium Phosphorus Magnesium Direct Bilirubin AST ALT Alkaline Phosphatase Lactate Dehydrogenase Troponin T C-Reactive Protein Total Protein Albumin Prealbumin Triglycerides Cholesterol LDL Cholesterol Direct HDL Cholesterol 25-OH Vitamin D Total PTH Intact Urine pH Urine WBC (Auto) Urine Creatinine Urine Total Protein Fluid Total Protein Vancomycin Trough Rheumatoid Factor Complement C4 Miscellaneous Test Crossmatch 01/30/17 01/30/17 01/30/17 11:26 17:43 23:39 WBC RBC Hgb Hct MCV MCH MCHC RDW Plt Count Lymph % (Auto) [place] % (Auto) Lymph # [place] # Baso # Seg Neutrophils % Seg Neuts % (Manual) Lymphocytes % (Manual) Monocytes % (Manual) Eosinophils % (Manual) Basophils % (Manual) Nucleated RBC % Seg Neutrophils # Seg Neutrophils # Man Lymphocytes # (Manual) Monocytes # (Manual) Eosinophils # (Manual) Basophils # (Manual) PT INR Fibrinogen dRVVT Confirm Interp Factor V Activity POC ABG pH POC ABG pCO2 POC ABG pO2 ABG pO2 ABG HCO3 ABG Base Excess ABG Hemoglobin Oxyhemoglobin Sodium Potassium Chloride Carbon Dioxide BUN Creatinine Glucose POC Glucose 135 H 143 H 122 H Lactic Acid Calcium Ionized Calcium Phosphorus Magnesium Direct Bilirubin AST ALT Alkaline Phosphatase Lactate Dehydrogenase Troponin T C-Reactive Protein Total Protein Albumin Prealbumin Triglycerides Cholesterol LDL Cholesterol Direct HDL Cholesterol 25-OH Vitamin D Total PTH Intact Urine pH Urine WBC (Auto) Urine Creatinine Urine Total Protein Fluid Total Protein Vancomycin Trough Rheumatoid Factor Complement C4 Miscellaneous Test Crossmatch 01/31/17 01/31/17 01/31/17 04:00 05:40 11:12 WBC RBC Hgb Hct MCV MCH MCHC RDW Plt Count Lymph % (Auto) [place] % (Auto) Lymph # [place] # Baso # Seg Neutrophils % Seg Neuts % (Manual) Lymphocytes % (Manual) Monocytes % (Manual) Eosinophils % (Manual) Basophils % (Manual) Nucleated RBC % Seg Neutrophils # Seg Neutrophils # Man Lymphocytes # (Manual) Monocytes # (Manual) Eosinophils # (Manual) Basophils # (Manual) PT INR Fibrinogen dRVVT Confirm Interp Factor V Activity POC ABG pH POC ABG pCO2 POC ABG pO2 ABG pO2 ABG HCO3 ABG Base Excess ABG Hemoglobin Oxyhemoglobin Sodium Potassium Chloride Carbon Dioxide BUN 78 H Creatinine 1.5 H Glucose 108 H POC Glucose 123 H Lactic Acid Calcium Ionized Calcium Phosphorus Magnesium Direct Bilirubin AST ALT Alkaline Phosphatase Lactate Dehydrogenase Troponin T C-Reactive Protein 8.10 H Total Protein Albumin Prealbumin Triglycerides Cholesterol LDL Cholesterol Direct HDL Cholesterol 25-OH Vitamin D Total PTH Intact Urine pH Urine WBC (Auto) Urine Creatinine Urine Total Protein Fluid Total Protein Vancomycin Trough Rheumatoid Factor Complement C4 Miscellaneous Test Crossmatch 01/31/17 01/31/17 01/31/17 11:16 17:45 17:50 WBC RBC Hgb Hct MCV MCH MCHC RDW Plt Count Lymph % (Auto) [place] % (Auto) Lymph # [place] # Baso # Seg Neutrophils % Seg Neuts % (Manual) Lymphocytes % (Manual) Monocytes % (Manual) Eosinophils % (Manual) Basophils % (Manual) Nucleated RBC % Seg Neutrophils # Seg Neutrophils # Man Lymphocytes # (Manual) Monocytes # (Manual) Eosinophils # (Manual) Basophils # (Manual) PT INR Fibrinogen dRVVT Confirm Interp Factor V Activity POC ABG pH POC ABG pCO2 POC ABG pO2 ABG pO2 ABG HCO3 ABG Base Excess ABG Hemoglobin Oxyhemoglobin Sodium Potassium Chloride Carbon Dioxide BUN Creatinine Glucose POC Glucose 119 H 111 H Lactic Acid Calcium Ionized Calcium Phosphorus Magnesium Direct Bilirubin AST ALT Alkaline Phosphatase Lactate Dehydrogenase Troponin T C-Reactive Protein Total Protein Albumin Prealbumin Triglycerides Cholesterol LDL Cholesterol Direct HDL Cholesterol 25-OH Vitamin D Total PTH Intact 6.76 L Urine pH Urine WBC (Auto) Urine Creatinine Urine Total Protein Fluid Total Protein Vancomycin Trough Rheumatoid Factor Complement C4 Miscellaneous Test Crossmatch 01/31/17 02/01/17 02/01/17 23:19 05:42 09:24 WBC RBC Hgb Hct MCV MCH MCHC RDW Plt Count Lymph % (Auto) [place] % (Auto) Lymph # [place] # Baso # Seg Neutrophils % Seg Neuts % (Manual) Lymphocytes % (Manual) Monocytes % (Manual) Eosinophils % (Manual) Basophils % (Manual) Nucleated RBC % Seg Neutrophils # Seg Neutrophils # Man Lymphocytes # (Manual) Monocytes # (Manual) Eosinophils # (Manual) Basophils # (Manual) PT INR Fibrinogen dRVVT Confirm Interp Factor V Activity POC ABG pH POC ABG pCO2 POC ABG pO2 ABG pO2 ABG HCO3 ABG Base Excess ABG Hemoglobin Oxyhemoglobin Sodium Potassium Chloride Carbon Dioxide BUN Creatinine Glucose POC Glucose 118 H 122 H Lactic Acid Calcium Ionized Calcium Phosphorus Magnesium 2.60 H Direct Bilirubin AST ALT Alkaline Phosphatase Lactate Dehydrogenase Troponin T C-Reactive Protein Total Protein Albumin Prealbumin Triglycerides Cholesterol LDL Cholesterol Direct HDL Cholesterol 25-OH Vitamin D Total PTH Intact Urine pH Urine WBC (Auto) Urine Creatinine Urine Total Protein Fluid Total Protein Vancomycin Trough Rheumatoid Factor Complement C4 Miscellaneous Test Crossmatch 02/01/17 02/01/17 02/02/17 09:24 12:15 07:40 WBC RBC Hgb Hct MCV MCH MCHC RDW Plt Count Lymph % (Auto) [place] % (Auto) Lymph # [place] # Baso # Seg Neutrophils % Seg Neuts % (Manual) Lymphocytes % (Manual) Monocytes % (Manual) Eosinophils % (Manual) Basophils % (Manual) Nucleated RBC % Seg Neutrophils # Seg Neutrophils # Man Lymphocytes # (Manual) Monocytes # (Manual) Eosinophils # (Manual) Basophils # (Manual) PT INR Fibrinogen dRVVT Confirm Interp Factor V Activity POC ABG pH POC ABG pCO2 POC ABG pO2 ABG pO2 ABG HCO3 ABG Base Excess ABG Hemoglobin Oxyhemoglobin Sodium Potassium Chloride Carbon Dioxide BUN 102 H 72 H Creatinine 1.9 H 1.5 H Glucose 120 H POC Glucose 156 H Lactic Acid Calcium Ionized Calcium Phosphorus Magnesium Direct Bilirubin AST ALT Alkaline Phosphatase Lactate Dehydrogenase Troponin T C-Reactive Protein Total Protein Albumin Prealbumin Triglycerides Cholesterol LDL Cholesterol Direct HDL Cholesterol 25-OH Vitamin D Total PTH Intact Urine pH Urine WBC (Auto) Urine Creatinine Urine Total Protein Fluid Total Protein Vancomycin Trough Rheumatoid Factor Complement C4 Miscellaneous Test Crossmatch 02/02/17 02/02/17 02/03/17 10:16 12:11 00:08 WBC 12.0 H RBC 3.08 L Hgb 8.3 L Hct 25.6 L MCV MCH 27 L MCHC RDW 18.2 H Plt Count Lymph % (Auto) [place] % (Auto) Lymph # [place] # Baso # Seg Neutrophils % 78.4 H Seg Neuts % (Manual) Lymphocytes % (Manual) Monocytes % (Manual) Eosinophils % (Manual) Basophils % (Manual) Nucleated RBC % Seg Neutrophils # 9.4 H Seg Neutrophils # Man Lymphocytes # (Manual) Monocytes # (Manual) Eosinophils # (Manual) Basophils # (Manual) PT INR Fibrinogen dRVVT Confirm Interp Factor V Activity POC ABG pH POC ABG pCO2 POC ABG pO2 ABG pO2 ABG HCO3 ABG Base Excess ABG Hemoglobin Oxyhemoglobin Sodium Potassium Chloride Carbon Dioxide BUN Creatinine Glucose POC Glucose 110 H 120 H Lactic Acid Calcium Ionized Calcium Phosphorus Magnesium Direct Bilirubin AST ALT Alkaline Phosphatase Lactate Dehydrogenase Troponin T C-Reactive Protein Total Protein Albumin Prealbumin Triglycerides Cholesterol LDL Cholesterol Direct HDL Cholesterol 25-OH Vitamin D Total PTH Intact Urine pH Urine WBC (Auto) Urine Creatinine Urine Total Protein Fluid Total Protein Vancomycin Trough Rheumatoid Factor Complement C4 Miscellaneous Test Crossmatch 02/03/17 02/03/17 02/03/17 05:41 07:38 11:31 WBC RBC Hgb Hct MCV MCH MCHC RDW Plt Count Lymph % (Auto) [place] % (Auto) Lymph # [place] # Baso # Seg Neutrophils % Seg Neuts % (Manual) Lymphocytes % (Manual) Monocytes % (Manual) Eosinophils % (Manual) Basophils % (Manual) Nucleated RBC % Seg Neutrophils # Seg Neutrophils # Man Lymphocytes # (Manual) Monocytes # (Manual) Eosinophils # (Manual) Basophils # (Manual) PT INR Fibrinogen dRVVT Confirm Interp Factor V Activity POC ABG pH POC ABG pCO2 POC ABG pO2 ABG pO2 ABG HCO3 ABG Base Excess ABG Hemoglobin Oxyhemoglobin Sodium 134 L Potassium Chloride Carbon Dioxide 21 L BUN 91 H Creatinine 1.9 H Glucose 110 H POC Glucose 119 H 119 H Lactic Acid Calcium 10.3 H Ionized Calcium Phosphorus Magnesium Direct Bilirubin AST ALT Alkaline Phosphatase Lactate Dehydrogenase Troponin T C-Reactive Protein Total Protein Albumin Prealbumin Triglycerides Cholesterol LDL Cholesterol Direct HDL Cholesterol 25-OH Vitamin D Total PTH Intact Urine pH Urine WBC (Auto) Urine Creatinine Urine Total Protein Fluid Total Protein Vancomycin Trough Rheumatoid Factor Complement C4 Miscellaneous Test Crossmatch 02/03/17 02/04/17 02/04/17 17:13 04:00 05:18 WBC RBC Hgb Hct MCV MCH MCHC RDW Plt Count Lymph % (Auto) [place] % (Auto) Lymph # [place] # Baso # Seg Neutrophils % Seg Neuts % (Manual) Lymphocytes % (Manual) Monocytes % (Manual) Eosinophils % (Manual) Basophils % (Manual) Nucleated RBC % Seg Neutrophils # Seg Neutrophils # Man Lymphocytes # (Manual) Monocytes # (Manual) Eosinophils # (Manual) Basophils # (Manual) PT INR Fibrinogen dRVVT Confirm Interp Factor V Activity POC ABG pH POC ABG pCO2 POC ABG pO2 ABG pO2 ABG HCO3 ABG Base Excess ABG Hemoglobin Oxyhemoglobin Sodium 136 L Potassium Chloride Carbon Dioxide BUN 58 H Creatinine 1.3 H Glucose 103 H POC Glucose 133 H 132 H Lactic Acid Calcium Ionized Calcium Phosphorus 2.00 L D Magnesium 1.60 L Direct Bilirubin AST ALT Alkaline Phosphatase Lactate Dehydrogenase Troponin T C-Reactive Protein Total Protein Albumin Prealbumin Triglycerides Cholesterol LDL Cholesterol Direct HDL Cholesterol 25-OH Vitamin D Total PTH Intact Urine pH Urine WBC (Auto) Urine Creatinine Urine Total Protein Fluid Total Protein Vancomycin Trough Rheumatoid Factor Complement C4 Miscellaneous Test Crossmatch 02/05/17 02/05/17 02/05/17 00:01 04:00 06:42 WBC RBC Hgb Hct MCV MCH MCHC RDW Plt Count Lymph % (Auto) [place] % (Auto) Lymph # [place] # Baso # Seg Neutrophils % Seg Neuts % (Manual) Lymphocytes % (Manual) Monocytes % (Manual) Eosinophils % (Manual) Basophils % (Manual) Nucleated RBC % Seg Neutrophils # Seg Neutrophils # Man Lymphocytes # (Manual) Monocytes # (Manual) Eosinophils # (Manual) Basophils # (Manual) PT INR Fibrinogen dRVVT Confirm Interp Factor V Activity POC ABG pH POC ABG pCO2 POC ABG pO2 ABG pO2 ABG HCO3 ABG Base Excess ABG Hemoglobin Oxyhemoglobin Sodium Potassium Chloride Carbon Dioxide BUN 83 H Creatinine 1.8 H Glucose POC Glucose 119 H 110 H Lactic Acid Calcium 10.7 H Ionized Calcium Phosphorus Magnesium Direct Bilirubin AST ALT Alkaline Phosphatase Lactate Dehydrogenase Troponin T C-Reactive Protein Total Protein Albumin Prealbumin Triglycerides Cholesterol LDL Cholesterol Direct HDL Cholesterol 25-OH Vitamin D Total PTH Intact Urine pH Urine WBC (Auto) Urine Creatinine Urine Total Protein Fluid Total Protein Vancomycin Trough Rheumatoid Factor Complement C4 Miscellaneous Test Crossmatch 02/05/17 02/05/17 02/05/17 09:59 11:47 23:44 WBC RBC 2.69 L Hgb 7.2 L Hct 22.5 L MCV MCH 27 L MCHC RDW 18.6 H Plt Count Lymph % (Auto) [place] % (Auto) 9.2 H Lymph # [place] # 0.9 H Baso # Seg Neutrophils % Seg Neuts % (Manual) Lymphocytes % (Manual) Monocytes % (Manual) Eosinophils % (Manual) Basophils % (Manual) Nucleated RBC % Seg Neutrophils # Seg Neutrophils # Man Lymphocytes # (Manual) Monocytes # (Manual) Eosinophils # (Manual) Basophils # (Manual) PT INR Fibrinogen dRVVT Confirm Interp Factor V Activity POC ABG pH POC ABG pCO2 POC ABG pO2 ABG pO2 ABG HCO3 ABG Base Excess ABG Hemoglobin Oxyhemoglobin Sodium Potassium Chloride Carbon Dioxide BUN Creatinine Glucose POC Glucose 130 H 123 H Lactic Acid Calcium Ionized Calcium Phosphorus Magnesium Direct Bilirubin AST ALT Alkaline Phosphatase Lactate Dehydrogenase Troponin T C-Reactive Protein Total Protein Albumin Prealbumin Triglycerides Cholesterol LDL Cholesterol Direct HDL Cholesterol 25-OH Vitamin D Total PTH Intact Urine pH Urine WBC (Auto) Urine Creatinine Urine Total Protein Fluid Total Protein Vancomycin Trough Rheumatoid Factor Complement C4 Miscellaneous Test Crossmatch 02/06/17 02/06/17 02/06/17 04:45 05:58 12:01 WBC RBC Hgb Hct MCV MCH MCHC RDW Plt Count Lymph % (Auto) [place] % (Auto) Lymph # [place] # Baso # Seg Neutrophils % Seg Neuts % (Manual) Lymphocytes % (Manual) Monocytes % (Manual) Eosinophils % (Manual) Basophils % (Manual) Nucleated RBC % Seg Neutrophils # Seg Neutrophils # Man Lymphocytes # (Manual) Monocytes # (Manual) Eosinophils # (Manual) Basophils # (Manual) PT INR Fibrinogen dRVVT Confirm Interp Factor V Activity POC ABG pH POC ABG pCO2 POC ABG pO2 ABG pO2 ABG HCO3 ABG Base Excess ABG Hemoglobin Oxyhemoglobin Sodium Potassium Chloride Carbon Dioxide BUN 101 H Creatinine 2.0 H Glucose 102 H POC Glucose 115 H 132 H Lactic Acid Calcium 10.6 H Ionized Calcium Phosphorus Magnesium Direct Bilirubin AST ALT Alkaline Phosphatase 199 H Lactate Dehydrogenase Troponin T C-Reactive Protein Total Protein Albumin 1.4 L Prealbumin Triglycerides Cholesterol LDL Cholesterol Direct HDL Cholesterol 25-OH Vitamin D Total PTH Intact Urine pH Urine WBC (Auto) Urine Creatinine Urine Total Protein Fluid Total Protein Vancomycin Trough Rheumatoid Factor Complement C4 Miscellaneous Test Crossmatch 02/06/17 02/06/17 02/07/17 17:41 23:32 05:04 WBC RBC Hgb Hct MCV MCH MCHC RDW Plt Count Lymph % (Auto) [place] % (Auto) Lymph # [place] # Baso # Seg Neutrophils % Seg Neuts % (Manual) Lymphocytes % (Manual) Monocytes % (Manual) Eosinophils % (Manual) Basophils % (Manual) Nucleated RBC % Seg Neutrophils # Seg Neutrophils # Man Lymphocytes # (Manual) Monocytes # (Manual) Eosinophils # (Manual) Basophils # (Manual) PT INR Fibrinogen dRVVT Confirm Interp Factor V Activity POC ABG pH POC ABG pCO2 POC ABG pO2 ABG pO2 ABG HCO3 ABG Base Excess ABG Hemoglobin Oxyhemoglobin Sodium Potassium Chloride Carbon Dioxide BUN Creatinine Glucose POC Glucose 134 H 128 H 119 H Lactic Acid Calcium Ionized Calcium Phosphorus Magnesium Direct Bilirubin AST ALT Alkaline Phosphatase Lactate Dehydrogenase Troponin T C-Reactive Protein Total Protein Albumin Prealbumin Triglycerides Cholesterol LDL Cholesterol Direct HDL Cholesterol 25-OH Vitamin D Total PTH Intact Urine pH Urine WBC (Auto) Urine Creatinine Urine Total Protein Fluid Total Protein Vancomycin Trough Rheumatoid Factor Complement C4 Miscellaneous Test Crossmatch 02/07/17 02/07/17 02/07/17 06:30 11:20 17:13 WBC RBC Hgb Hct MCV MCH MCHC RDW Plt Count Lymph % (Auto) [place] % (Auto) Lymph # [place] # Baso # Seg Neutrophils % Seg Neuts % (Manual) Lymphocytes % (Manual) Monocytes % (Manual) Eosinophils % (Manual) Basophils % (Manual) Nucleated RBC % Seg Neutrophils # Seg Neutrophils # Man Lymphocytes # (Manual) Monocytes # (Manual) Eosinophils # (Manual) Basophils # (Manual) PT INR Fibrinogen dRVVT Confirm Interp Factor V Activity POC ABG pH POC ABG pCO2 POC ABG pO2 ABG pO2 ABG HCO3 ABG Base Excess ABG Hemoglobin Oxyhemoglobin Sodium Potassium 3.4 L Chloride Carbon Dioxide BUN 69 H Creatinine 1.5 H Glucose 105 H POC Glucose 117 H 110 H Lactic Acid Calcium Ionized Calcium Phosphorus Magnesium 1.50 L Direct Bilirubin AST ALT Alkaline Phosphatase Lactate Dehydrogenase Troponin T C-Reactive Protein Total Protein Albumin Prealbumin Triglycerides Cholesterol LDL Cholesterol Direct HDL Cholesterol 25-OH Vitamin D Total PTH Intact Urine pH Urine WBC (Auto) Urine Creatinine Urine Total Protein Fluid Total Protein Vancomycin Trough Rheumatoid Factor Complement C4 Miscellaneous Test Crossmatch 02/07/17 02/08/17 02/08/17 20:47 04:00 11:43 WBC RBC Hgb Hct MCV MCH MCHC RDW Plt Count Lymph % (Auto) [place] % (Auto) Lymph # [place] # Baso # Seg Neutrophils % Seg Neuts % (Manual) Lymphocytes % (Manual) Monocytes % (Manual) Eosinophils % (Manual) Basophils % (Manual) Nucleated RBC % Seg Neutrophils # Seg Neutrophils # Man Lymphocytes # (Manual) Monocytes # (Manual) Eosinophils # (Manual) Basophils # (Manual) PT INR Fibrinogen dRVVT Confirm Interp Factor V Activity POC ABG pH POC ABG pCO2 POC ABG pO2 ABG pO2 ABG HCO3 ABG Base Excess ABG Hemoglobin Oxyhemoglobin Sodium Potassium Chloride Carbon Dioxide BUN 86 H Creatinine 1.7 H Glucose POC Glucose 115 H 122 H Lactic Acid Calcium Ionized Calcium Phosphorus Magnesium 1.60 L Direct Bilirubin AST ALT Alkaline Phosphatase Lactate Dehydrogenase Troponin T C-Reactive Protein Total Protein Albumin Prealbumin Triglycerides Cholesterol LDL Cholesterol Direct HDL Cholesterol 25-OH Vitamin D Total PTH Intact Urine pH Urine WBC (Auto) Urine Creatinine Urine Total Protein Fluid Total Protein Vancomycin Trough Rheumatoid Factor Complement C4 Miscellaneous Test Crossmatch 02/08/17 02/09/17 02/09/17 17:36 05:44 11:30 WBC RBC Hgb Hct MCV MCH MCHC RDW Plt Count Lymph % (Auto) [place] % (Auto) Lymph # [place] # Baso # Seg Neutrophils % Seg Neuts % (Manual) Lymphocytes % (Manual) Monocytes % (Manual) Eosinophils % (Manual) Basophils % (Manual) Nucleated RBC % Seg Neutrophils # Seg Neutrophils # Man Lymphocytes # (Manual) Monocytes # (Manual) Eosinophils # (Manual) Basophils # (Manual) PT INR Fibrinogen dRVVT Confirm Interp Factor V Activity POC ABG pH POC ABG pCO2 POC ABG pO2 ABG pO2 ABG HCO3 ABG Base Excess ABG Hemoglobin Oxyhemoglobin Sodium Potassium Chloride Carbon Dioxide BUN Creatinine Glucose POC Glucose 125 H 117 H 120 H Lactic Acid Calcium Ionized Calcium Phosphorus Magnesium Direct Bilirubin AST ALT Alkaline Phosphatase Lactate Dehydrogenase Troponin T C-Reactive Protein Total Protein Albumin Prealbumin Triglycerides Cholesterol LDL Cholesterol Direct HDL Cholesterol 25-OH Vitamin D Total PTH Intact Urine pH Urine WBC (Auto) Urine Creatinine Urine Total Protein Fluid Total Protein Vancomycin Trough Rheumatoid Factor Complement C4 Miscellaneous Test Crossmatch 02/09/17 02/10/17 02/10/17 23:45 05:45 05:50 WBC RBC Hgb Hct MCV MCH MCHC RDW Plt Count Lymph % (Auto) [place] % (Auto) Lymph # [place] # Baso # Seg Neutrophils % Seg Neuts % (Manual) Lymphocytes % (Manual) Monocytes % (Manual) Eosinophils % (Manual) Basophils % (Manual) Nucleated RBC % Seg Neutrophils # Seg Neutrophils # Man Lymphocytes # (Manual) Monocytes # (Manual) Eosinophils # (Manual) Basophils # (Manual) PT INR Fibrinogen dRVVT Confirm Interp Factor V Activity POC ABG pH POC ABG pCO2 POC ABG pO2 ABG pO2 ABG HCO3 ABG Base Excess ABG Hemoglobin Oxyhemoglobin Sodium Potassium Chloride Carbon Dioxide BUN 85 H Creatinine 1.8 H Glucose 109 H POC Glucose 114 H 189 H Lactic Acid Calcium Ionized Calcium Phosphorus Magnesium 2.50 H Direct Bilirubin AST ALT Alkaline Phosphatase Lactate Dehydrogenase Troponin T C-Reactive Protein Total Protein Albumin Prealbumin Triglycerides Cholesterol LDL Cholesterol Direct HDL Cholesterol 25-OH Vitamin D Total PTH Intact Urine pH Urine WBC (Auto) Urine Creatinine Urine Total Protein Fluid Total Protein Vancomycin Trough Rheumatoid Factor Complement C4 Miscellaneous Test Crossmatch 02/10/17 02/10/17 02/10/17 05:51 11:55 17:42 WBC RBC Hgb Hct MCV MCH MCHC RDW Plt Count Lymph % (Auto) [place] % (Auto) Lymph # [place] # Baso # Seg Neutrophils % Seg Neuts % (Manual) Lymphocytes % (Manual) Monocytes % (Manual) Eosinophils % (Manual) Basophils % (Manual) Nucleated RBC % Seg Neutrophils # Seg Neutrophils # Man Lymphocytes # (Manual) Monocytes # (Manual) Eosinophils # (Manual) Basophils # (Manual) PT INR Fibrinogen dRVVT Confirm Interp Factor V Activity POC ABG pH POC ABG pCO2 POC ABG pO2 ABG pO2 ABG HCO3 ABG Base Excess ABG Hemoglobin Oxyhemoglobin Sodium Potassium Chloride Carbon Dioxide BUN Creatinine Glucose POC Glucose 106 H 146 H 132 H Lactic Acid Calcium Ionized Calcium Phosphorus Magnesium Direct Bilirubin AST ALT Alkaline Phosphatase Lactate Dehydrogenase Troponin T C-Reactive Protein Total Protein Albumin Prealbumin Triglycerides Cholesterol LDL Cholesterol Direct HDL Cholesterol 25-OH Vitamin D Total PTH Intact Urine pH Urine WBC (Auto) Urine Creatinine Urine Total Protein Fluid Total Protein Vancomycin Trough Rheumatoid Factor Complement C4 Miscellaneous Test Crossmatch 02/10/17 02/11/17 02/11/17 23:43 04:08 05:34 WBC RBC Hgb Hct MCV MCH MCHC RDW Plt Count Lymph % (Auto) [place] % (Auto) Lymph # [place] # Baso # Seg Neutrophils % Seg Neuts % (Manual) Lymphocytes % (Manual) Monocytes % (Manual) Eosinophils % (Manual) Basophils % (Manual) Nucleated RBC % Seg Neutrophils # Seg Neutrophils # Man Lymphocytes # (Manual) Monocytes # (Manual) Eosinophils # (Manual) Basophils # (Manual) PT INR Fibrinogen dRVVT Confirm Interp Factor V Activity POC ABG pH POC ABG pCO2 POC ABG pO2 ABG pO2 ABG HCO3 ABG Base Excess ABG Hemoglobin Oxyhemoglobin Sodium 136 L Potassium Chloride Carbon Dioxide BUN 65 H Creatinine 1.7 H Glucose 105 H POC Glucose 130 H 113 H Lactic Acid Calcium Ionized Calcium Phosphorus Magnesium Direct Bilirubin AST ALT Alkaline Phosphatase Lactate Dehydrogenase Troponin T C-Reactive Protein Total Protein Albumin Prealbumin Triglycerides Cholesterol LDL Cholesterol Direct HDL Cholesterol 25-OH Vitamin D Total PTH Intact Urine pH Urine WBC (Auto) Urine Creatinine Urine Total Protein Fluid Total Protein Vancomycin Trough Rheumatoid Factor Complement C4 Miscellaneous Test Crossmatch 02/11/17 02/11/17 02/12/17 11:56 23:18 06:19 WBC RBC Hgb Hct MCV MCH MCHC RDW Plt Count Lymph % (Auto) [place] % (Auto) Lymph # [place] # Baso # Seg Neutrophils % Seg Neuts % (Manual) Lymphocytes % (Manual) Monocytes % (Manual) Eosinophils % (Manual) Basophils % (Manual) Nucleated RBC % Seg Neutrophils # Seg Neutrophils # Man Lymphocytes # (Manual) Monocytes # (Manual) Eosinophils # (Manual) Basophils # (Manual) PT INR Fibrinogen dRVVT Confirm Interp Factor V Activity POC ABG pH POC ABG pCO2 POC ABG pO2 ABG pO2 ABG HCO3 ABG Base Excess ABG Hemoglobin Oxyhemoglobin Sodium 136 L Potassium Chloride 97.1 L Carbon Dioxide BUN 93 H Creatinine 2.4 H Glucose POC Glucose 126 H 119 H Lactic Acid Calcium 11.0 H Ionized Calcium Phosphorus Magnesium Direct Bilirubin AST ALT Alkaline Phosphatase Lactate Dehydrogenase Troponin T C-Reactive Protein Total Protein Albumin Prealbumin Triglycerides Cholesterol LDL Cholesterol Direct HDL Cholesterol 25-OH Vitamin D Total PTH Intact Urine pH Urine WBC (Auto) Urine Creatinine Urine Total Protein Fluid Total Protein Vancomycin Trough Rheumatoid Factor Complement C4 Miscellaneous Test Crossmatch 02/12/17 02/12/17 02/12/17 08:00 10:25 11:42 WBC 15.4 H RBC 2.63 L Hgb 6.9 L Hct 22.6 L MCV MCH 26 L MCHC RDW 20.5 H Plt Count Lymph % (Auto) [place] % (Auto) Lymph # [place] # Baso # Seg Neutrophils % Seg Neuts % (Manual) Lymphocytes % (Manual) Monocytes % (Manual) Eosinophils % (Manual) Basophils % (Manual) Nucleated RBC % Seg Neutrophils # Seg Neutrophils # Man Lymphocytes # (Manual) Monocytes # (Manual) Eosinophils # (Manual) Basophils # (Manual) PT INR Fibrinogen dRVVT Confirm Interp Factor V Activity POC ABG pH POC ABG pCO2 POC ABG pO2 ABG pO2 ABG HCO3 ABG Base Excess ABG Hemoglobin Oxyhemoglobin Sodium Potassium Chloride Carbon Dioxide BUN Creatinine Glucose POC Glucose 142 H Lactic Acid Calcium Ionized Calcium Phosphorus Magnesium Direct Bilirubin AST ALT Alkaline Phosphatase Lactate Dehydrogenase Troponin T C-Reactive Protein Total Protein Albumin Prealbumin Triglycerides Cholesterol LDL Cholesterol Direct HDL Cholesterol 25-OH Vitamin D Total PTH Intact Urine pH Urine WBC (Auto) Urine Creatinine Urine Total Protein Fluid Total Protein Vancomycin Trough Rheumatoid Factor Complement C4 Miscellaneous Test Crossmatch See Detail 02/12/17 02/13/17 02/13/17 18:04 00:04 05:00 WBC RBC Hgb Hct MCV MCH MCHC RDW Plt Count Lymph % (Auto) [place] % (Auto) Lymph # [place] # Baso # Seg Neutrophils % Seg Neuts % (Manual) Lymphocytes % (Manual) Monocytes % (Manual) Eosinophils % (Manual) Basophils % (Manual) Nucleated RBC % Seg Neutrophils # Seg Neutrophils # Man Lymphocytes # (Manual) Monocytes # (Manual) Eosinophils # (Manual) Basophils # (Manual) PT INR Fibrinogen dRVVT Confirm Interp Factor V Activity POC ABG pH POC ABG pCO2 POC ABG pO2 ABG pO2 ABG HCO3 ABG Base Excess ABG Hemoglobin Oxyhemoglobin Sodium 134 L Potassium Chloride 96.1 L Carbon Dioxide 20 L BUN 125 H Creatinine 3.0 H Glucose 111 H POC Glucose 135 H 109 H Lactic Acid Calcium 11.3 H Ionized Calcium Phosphorus Magnesium Direct Bilirubin AST ALT Alkaline Phosphatase Lactate Dehydrogenase Troponin T C-Reactive Protein Total Protein Albumin Prealbumin Triglycerides Cholesterol LDL Cholesterol Direct HDL Cholesterol 25-OH Vitamin D Total PTH Intact Urine pH Urine WBC (Auto) Urine Creatinine Urine Total Protein Fluid Total Protein Vancomycin Trough Rheumatoid Factor Complement C4 Miscellaneous Test Crossmatch 02/13/17 02/13/17 02/13/17 05:00 05:28 12:03 WBC 11.9 H RBC 2.92 L Hgb 7.8 L Hct 25.2 L MCV MCH 27 L MCHC RDW 19.3 H Plt Count Lymph % (Auto) [place] % (Auto) Lymph # [place] # Baso # Seg Neutrophils % Seg Neuts % (Manual) Lymphocytes % (Manual) Monocytes % (Manual) Eosinophils % (Manual) Basophils % (Manual) Nucleated RBC % Seg Neutrophils # Seg Neutrophils # Man Lymphocytes # (Manual) Monocytes # (Manual) Eosinophils # (Manual) Basophils # (Manual) PT INR Fibrinogen dRVVT Confirm Interp Factor V Activity POC ABG pH POC ABG pCO2 POC ABG pO2 ABG pO2 ABG HCO3 ABG Base Excess ABG Hemoglobin Oxyhemoglobin Sodium Potassium Chloride Carbon Dioxide BUN Creatinine Glucose POC Glucose 124 H 160 H Lactic Acid Calcium Ionized Calcium Phosphorus Magnesium Direct Bilirubin AST ALT Alkaline Phosphatase Lactate Dehydrogenase Troponin T C-Reactive Protein Total Protein Albumin Prealbumin Triglycerides Cholesterol LDL Cholesterol Direct HDL Cholesterol 25-OH Vitamin D Total PTH Intact Urine pH Urine WBC (Auto) Urine Creatinine Urine Total Protein Fluid Total Protein Vancomycin Trough Rheumatoid Factor Complement C4 Miscellaneous Test Crossmatch 02/13/17 02/14/17 02/14/17 18:09 06:16 08:08 WBC 15.2 H RBC 2.97 L Hgb 8.1 L Hct 26.3 L MCV MCH MCHC RDW 19.3 H Plt Count Lymph % (Auto) [place] % (Auto) Lymph # [place] # Baso # Seg Neutrophils % Seg Neuts % (Manual) Lymphocytes % (Manual) Monocytes % (Manual) Eosinophils % (Manual) Basophils % (Manual) Nucleated RBC % Seg Neutrophils # Seg Neutrophils # Man Lymphocytes # (Manual) Monocytes # (Manual) Eosinophils # (Manual) Basophils # (Manual) PT INR Fibrinogen dRVVT Confirm Interp Factor V Activity POC ABG pH POC ABG pCO2 POC ABG pO2 ABG pO2 ABG HCO3 ABG Base Excess ABG Hemoglobin Oxyhemoglobin Sodium Potassium Chloride Carbon Dioxide BUN Creatinine Glucose POC Glucose 110 H 112 H Lactic Acid Calcium Ionized Calcium Phosphorus Magnesium Direct Bilirubin AST ALT Alkaline Phosphatase Lactate Dehydrogenase Troponin T C-Reactive Protein Total Protein Albumin Prealbumin Triglycerides Cholesterol LDL Cholesterol Direct HDL Cholesterol 25-OH Vitamin D Total PTH Intact Urine pH Urine WBC (Auto) Urine Creatinine Urine Total Protein Fluid Total Protein Vancomycin Trough Rheumatoid Factor Complement C4 Miscellaneous Test Crossmatch 02/14/17 02/14/17 02/15/17 08:08 17:41 04:15 WBC RBC Hgb Hct MCV MCH MCHC RDW Plt Count Lymph % (Auto) [place] % (Auto) Lymph # [place] # Baso # Seg Neutrophils % Seg Neuts % (Manual) Lymphocytes % (Manual) Monocytes % (Manual) Eosinophils % (Manual) Basophils % (Manual) Nucleated RBC % Seg Neutrophils # Seg Neutrophils # Man Lymphocytes # (Manual) Monocytes # (Manual) Eosinophils # (Manual) Basophils # (Manual) PT INR Fibrinogen dRVVT Confirm Interp Factor V Activity POC ABG pH POC ABG pCO2 POC ABG pO2 ABG pO2 ABG HCO3 ABG Base Excess ABG Hemoglobin Oxyhemoglobin Sodium Potassium Chloride Carbon Dioxide 18 L 21 L BUN 79 H 113 H Creatinine 2.1 H 2.8 H Glucose POC Glucose 118 H Lactic Acid Calcium 10.7 H Ionized Calcium Phosphorus 1.70 L D Magnesium 1.60 L Direct Bilirubin AST ALT Alkaline Phosphatase Lactate Dehydrogenase Troponin T C-Reactive Protein Total Protein Albumin Prealbumin Triglycerides Cholesterol LDL Cholesterol Direct HDL Cholesterol 25-OH Vitamin D Total PTH Intact Urine pH Urine WBC (Auto) Urine Creatinine Urine Total Protein Fluid Total Protein Vancomycin Trough Rheumatoid Factor Complement C4 Miscellaneous Test Crossmatch 02/15/17 02/15/17 02/15/17 06:06 11:31 17:52 WBC RBC Hgb Hct MCV MCH MCHC RDW Plt Count Lymph % (Auto) [place] % (Auto) Lymph # [place] # Baso # Seg Neutrophils % Seg Neuts % (Manual) Lymphocytes % (Manual) Monocytes % (Manual) Eosinophils % (Manual) Basophils % (Manual) Nucleated RBC % Seg Neutrophils # Seg Neutrophils # Man Lymphocytes # (Manual) Monocytes # (Manual) Eosinophils # (Manual) Basophils # (Manual) PT INR Fibrinogen dRVVT Confirm Interp Factor V Activity POC ABG pH POC ABG pCO2 POC ABG pO2 ABG pO2 ABG HCO3 ABG Base Excess ABG Hemoglobin Oxyhemoglobin Sodium Potassium Chloride Carbon Dioxide BUN Creatinine Glucose POC Glucose 115 H 129 H 201 H Lactic Acid Calcium Ionized Calcium Phosphorus Magnesium Direct Bilirubin AST ALT Alkaline Phosphatase Lactate Dehydrogenase Troponin T C-Reactive Protein Total Protein Albumin Prealbumin Triglycerides Cholesterol LDL Cholesterol Direct HDL Cholesterol 25-OH Vitamin D Total PTH Intact Urine pH Urine WBC (Auto) Urine Creatinine Urine Total Protein Fluid Total Protein Vancomycin Trough Rheumatoid Factor Complement C4 Miscellaneous Test Crossmatch 02/15/17 02/15/17 02/15/17 19:08 19:08 19:08 WBC RBC Hgb Hct MCV MCH MCHC RDW Plt Count Lymph % (Auto) [place] % (Auto) Lymph # [place] # Baso # Seg Neutrophils % Seg Neuts % (Manual) Lymphocytes % (Manual) Monocytes % (Manual) Eosinophils % (Manual) Basophils % (Manual) Nucleated RBC % Seg Neutrophils # Seg Neutrophils # Man Lymphocytes # (Manual) Monocytes # (Manual) Eosinophils # (Manual) Basophils # (Manual) PT INR Fibrinogen dRVVT Confirm Interp Factor V Activity POC ABG pH POC ABG pCO2 POC ABG pO2 ABG pO2 ABG HCO3 ABG Base Excess ABG Hemoglobin Oxyhemoglobin Sodium Potassium Chloride Carbon Dioxide BUN Creatinine Glucose POC Glucose Lactic Acid Calcium Ionized Calcium 6.0 H Phosphorus Magnesium Direct Bilirubin AST ALT Alkaline Phosphatase Lactate Dehydrogenase Troponin T C-Reactive Protein Total Protein Albumin Prealbumin Triglycerides Cholesterol LDL Cholesterol Direct HDL Cholesterol 25-OH Vitamin D Total 13 L PTH Intact 10.88 L Urine pH Urine WBC (Auto) Urine Creatinine Urine Total Protein Fluid Total Protein Vancomycin Trough Rheumatoid Factor Complement C4 Miscellaneous Test Crossmatch 02/16/17 02/16/17 02/16/17 05:12 06:00 12:39 WBC RBC Hgb Hct MCV MCH MCHC RDW Plt Count Lymph % (Auto) [place] % (Auto) Lymph # [place] # Baso # Seg Neutrophils % Seg Neuts % (Manual) Lymphocytes % (Manual) Monocytes % (Manual) Eosinophils % (Manual) Basophils % (Manual) Nucleated RBC % Seg Neutrophils # Seg Neutrophils # Man Lymphocytes # (Manual) Monocytes # (Manual) Eosinophils # (Manual) Basophils # (Manual) PT INR Fibrinogen dRVVT Confirm Interp Factor V Activity POC ABG pH POC ABG pCO2 POC ABG pO2 ABG pO2 ABG HCO3 ABG Base Excess ABG Hemoglobin Oxyhemoglobin Sodium Potassium Chloride Carbon Dioxide BUN 74 H Creatinine 1.7 H Glucose 102 H POC Glucose 125 H 109 H Lactic Acid Calcium Ionized Calcium Phosphorus 2.10 L D Magnesium Direct Bilirubin AST ALT Alkaline Phosphatase Lactate Dehydrogenase Troponin T C-Reactive Protein Total Protein Albumin Prealbumin Triglycerides Cholesterol LDL Cholesterol Direct HDL Cholesterol 25-OH Vitamin D Total PTH Intact Urine pH Urine WBC (Auto) Urine Creatinine Urine Total Protein Fluid Total Protein Vancomycin Trough Rheumatoid Factor Complement C4 Miscellaneous Test Crossmatch 02/16/17 02/16/17 02/17/17 17:31 23:57 05:30 WBC RBC Hgb Hct MCV MCH MCHC RDW Plt Count Lymph % (Auto) [place] % (Auto) Lymph # [place] # Baso # Seg Neutrophils % Seg Neuts % (Manual) Lymphocytes % (Manual) Monocytes % (Manual) Eosinophils % (Manual) Basophils % (Manual) Nucleated RBC % Seg Neutrophils # Seg Neutrophils # Man Lymphocytes # (Manual) Monocytes # (Manual) Eosinophils # (Manual) Basophils # (Manual) PT INR Fibrinogen dRVVT Confirm Interp Factor V Activity POC ABG pH POC ABG pCO2 POC ABG pO2 ABG pO2 ABG HCO3 ABG Base Excess ABG Hemoglobin Oxyhemoglobin Sodium Potassium Chloride Carbon Dioxide BUN Creatinine Glucose POC Glucose 106 H 127 H 122 H Lactic Acid Calcium Ionized Calcium Phosphorus Magnesium Direct Bilirubin AST ALT Alkaline Phosphatase Lactate Dehydrogenase Troponin T C-Reactive Protein Total Protein Albumin Prealbumin Triglycerides Cholesterol LDL Cholesterol Direct HDL Cholesterol 25-OH Vitamin D Total PTH Intact Urine pH Urine WBC (Auto) Urine Creatinine Urine Total Protein Fluid Total Protein Vancomycin Trough Rheumatoid Factor Complement C4 Miscellaneous Test Crossmatch 02/17/17 02/17/17 02/17/17 06:00 12:17 17:57 WBC RBC Hgb Hct MCV MCH MCHC RDW Plt Count Lymph % (Auto) [place] % (Auto) Lymph # [place] # Baso # Seg Neutrophils % Seg Neuts % (Manual) Lymphocytes % (Manual) Monocytes % (Manual) Eosinophils % (Manual) Basophils % (Manual) Nucleated RBC % Seg Neutrophils # Seg Neutrophils # Man Lymphocytes # (Manual) Monocytes # (Manual) Eosinophils # (Manual) Basophils # (Manual) PT INR Fibrinogen dRVVT Confirm Interp Factor V Activity POC ABG pH POC ABG pCO2 POC ABG pO2 ABG pO2 ABG HCO3 ABG Base Excess ABG Hemoglobin Oxyhemoglobin Sodium Potassium Chloride Carbon Dioxide BUN 94 H Creatinine 2.3 H Glucose 106 H POC Glucose 173 H 140 H Lactic Acid Calcium Ionized Calcium Phosphorus Magnesium Direct Bilirubin AST ALT Alkaline Phosphatase Lactate Dehydrogenase Troponin T C-Reactive Protein Total Protein Albumin Prealbumin Triglycerides Cholesterol LDL Cholesterol Direct HDL Cholesterol 25-OH Vitamin D Total PTH Intact Urine pH Urine WBC (Auto) Urine Creatinine Urine Total Protein Fluid Total Protein Vancomycin Trough Rheumatoid Factor Complement C4 Miscellaneous Test Crossmatch 02/18/17 02/18/17 02/18/17 00:20 05:30 06:14 WBC RBC Hgb Hct MCV MCH MCHC RDW Plt Count Lymph % (Auto) [place] % (Auto) Lymph # [place] # Baso # Seg Neutrophils % Seg Neuts % (Manual) Lymphocytes % (Manual) Monocytes % (Manual) Eosinophils % (Manual) Basophils % (Manual) Nucleated RBC % Seg Neutrophils # Seg Neutrophils # Man Lymphocytes # (Manual) Monocytes # (Manual) Eosinophils # (Manual) Basophils # (Manual) PT INR Fibrinogen dRVVT Confirm Interp Factor V Activity POC ABG pH POC ABG pCO2 POC ABG pO2 ABG pO2 ABG HCO3 ABG Base Excess ABG Hemoglobin Oxyhemoglobin Sodium 136 L Potassium Chloride 97.5 L Carbon Dioxide BUN 73 H Creatinine 1.9 H Glucose POC Glucose 132 H 106 H Lactic Acid Calcium Ionized Calcium Phosphorus Magnesium Direct Bilirubin AST ALT Alkaline Phosphatase Lactate Dehydrogenase Troponin T C-Reactive Protein Total Protein Albumin Prealbumin Triglycerides Cholesterol LDL Cholesterol Direct HDL Cholesterol 25-OH Vitamin D Total PTH Intact Urine pH Urine WBC (Auto) Urine Creatinine Urine Total Protein Fluid Total Protein Vancomycin Trough Rheumatoid Factor Complement C4 Miscellaneous Test Crossmatch 02/18/17 02/18/17 02/18/17 09:51 11:32 17:59 WBC 13.1 H RBC 2.77 L Hgb 7.6 L Hct 23.9 L MCV MCH MCHC RDW 19.0 H Plt Count Lymph % (Auto) [place] % (Auto) 11.1 H Lymph # [place] # 1.5 H Baso # Seg Neutrophils % Seg Neuts % (Manual) Lymphocytes % (Manual) Monocytes % (Manual) Eosinophils % (Manual) Basophils % (Manual) Nucleated RBC % Seg Neutrophils # 9.1 H Seg Neutrophils # Man Lymphocytes # (Manual) Monocytes # (Manual) Eosinophils # (Manual) Basophils # (Manual) PT INR Fibrinogen dRVVT Confirm Interp Factor V Activity POC ABG pH POC ABG pCO2 POC ABG pO2 ABG pO2 ABG HCO3 ABG Base Excess ABG Hemoglobin Oxyhemoglobin Sodium Potassium Chloride Carbon Dioxide BUN Creatinine Glucose POC Glucose 123 H 119 H Lactic Acid Calcium Ionized Calcium Phosphorus Magnesium Direct Bilirubin AST ALT Alkaline Phosphatase Lactate Dehydrogenase Troponin T C-Reactive Protein Total Protein Albumin Prealbumin Triglycerides Cholesterol LDL Cholesterol Direct HDL Cholesterol 25-OH Vitamin D Total PTH Intact Urine pH Urine WBC (Auto) Urine Creatinine Urine Total Protein Fluid Total Protein Vancomycin Trough Rheumatoid Factor Complement C4 Miscellaneous Test Crossmatch 02/18/17 02/19/17 02/19/17 23:47 05:36 09:45 WBC RBC Hgb Hct MCV MCH 27 L MCHC RDW 19.2 H Plt Count Lymph % (Auto) [place] % (Auto) Lymph # [place] # Baso # Seg Neutrophils % Seg Neuts % (Manual) Lymphocytes % (Manual) Monocytes % (Manual) Eosinophils % (Manual) Basophils % (Manual) Nucleated RBC % Seg Neutrophils # Seg Neutrophils # Man Lymphocytes # (Manual) Monocytes # (Manual) Eosinophils # (Manual) Basophils # (Manual) PT INR Fibrinogen dRVVT Confirm Interp Factor V Activity POC ABG pH POC ABG pCO2 POC ABG pO2 ABG pO2 ABG HCO3 ABG Base Excess ABG Hemoglobin Oxyhemoglobin Sodium Potassium Chloride Carbon Dioxide BUN Creatinine Glucose POC Glucose 110 H 121 H Lactic Acid Calcium Ionized Calcium Phosphorus Magnesium Direct Bilirubin AST ALT Alkaline Phosphatase Lactate Dehydrogenase Troponin T C-Reactive Protein Total Protein Albumin Prealbumin Triglycerides Cholesterol LDL Cholesterol Direct HDL Cholesterol 25-OH Vitamin D Total PTH Intact Urine pH Urine WBC (Auto) Urine Creatinine Urine Total Protein Fluid Total Protein Vancomycin Trough Rheumatoid Factor Complement C4 Miscellaneous Test Crossmatch 02/19/17 02/20/17 02/20/17 09:45 00:10 06:15 WBC RBC Hgb Hct MCV MCH MCHC RDW Plt Count Lymph % (Auto) [place] % (Auto) Lymph # [place] # Baso # Seg Neutrophils % Seg Neuts % (Manual) Lymphocytes % (Manual) Monocytes % (Manual) Eosinophils % (Manual) Basophils % (Manual) Nucleated RBC % Seg Neutrophils # Seg Neutrophils # Man Lymphocytes # (Manual) Monocytes # (Manual) Eosinophils # (Manual) Basophils # (Manual) PT INR Fibrinogen dRVVT Confirm Interp Factor V Activity POC ABG pH POC ABG pCO2 POC ABG pO2 ABG pO2 ABG HCO3 ABG Base Excess ABG Hemoglobin Oxyhemoglobin Sodium 136 L Potassium 5.1 H Chloride 97.6 L Carbon Dioxide 20 L 18 L BUN 110 H 135 H Creatinine 2.6 H 3.2 H Glucose 106 H 110 H POC Glucose 117 H Lactic Acid Calcium Ionized Calcium Phosphorus 4.70 H D 5.60 H Magnesium Direct Bilirubin AST ALT Alkaline Phosphatase Lactate Dehydrogenase Troponin T C-Reactive Protein Total Protein Albumin Prealbumin Triglycerides Cholesterol LDL Cholesterol Direct HDL Cholesterol 25-OH Vitamin D Total PTH Intact Urine pH Urine WBC (Auto) Urine Creatinine Urine Total Protein Fluid Total Protein Vancomycin Trough Rheumatoid Factor Complement C4 Miscellaneous Test Crossmatch 02/20/17 02/20/17 02/21/17 11:30 17:51 00:14 WBC RBC Hgb Hct MCV MCH MCHC RDW Plt Count Lymph % (Auto) [place] % (Auto) Lymph # [place] # Baso # Seg Neutrophils % Seg Neuts % (Manual) Lymphocytes % (Manual) Monocytes % (Manual) Eosinophils % (Manual) Basophils % (Manual) Nucleated RBC % Seg Neutrophils # Seg Neutrophils # Man Lymphocytes # (Manual) Monocytes # (Manual) Eosinophils # (Manual) Basophils # (Manual) PT INR Fibrinogen dRVVT Confirm Interp Factor V Activity POC ABG pH POC ABG pCO2 POC ABG pO2 ABG pO2 ABG HCO3 ABG Base Excess ABG Hemoglobin Oxyhemoglobin Sodium Potassium Chloride Carbon Dioxide BUN Creatinine Glucose POC Glucose 173 H 133 H 125 H Lactic Acid Calcium Ionized Calcium Phosphorus Magnesium Direct Bilirubin AST ALT Alkaline Phosphatase Lactate Dehydrogenase Troponin T C-Reactive Protein Total Protein Albumin Prealbumin Triglycerides Cholesterol LDL Cholesterol Direct HDL Cholesterol 25-OH Vitamin D Total PTH Intact Urine pH Urine WBC (Auto) Urine Creatinine Urine Total Protein Fluid Total Protein Vancomycin Trough Rheumatoid Factor Complement C4 Miscellaneous Test Crossmatch 02/21/17 02/21/17 02/21/17 04:09 05:03 11:58 WBC RBC Hgb Hct MCV MCH MCHC RDW Plt Count Lymph % (Auto) [place] % (Auto) Lymph # [place] # Baso # Seg Neutrophils % Seg Neuts % (Manual) Lymphocytes % (Manual) Monocytes % (Manual) Eosinophils % (Manual) Basophils % (Manual) Nucleated RBC % Seg Neutrophils # Seg Neutrophils # Man Lymphocytes # (Manual) Monocytes # (Manual) Eosinophils # (Manual) Basophils # (Manual) PT INR Fibrinogen dRVVT Confirm Interp Factor V Activity POC ABG pH POC ABG pCO2 POC ABG pO2 ABG pO2 ABG HCO3 ABG Base Excess ABG Hemoglobin Oxyhemoglobin Sodium 135 L Potassium Chloride Carbon Dioxide 20 L BUN 76 H Creatinine 2.0 H Glucose 125 H POC Glucose 134 H 139 H Lactic Acid Calcium Ionized Calcium Phosphorus Magnesium Direct Bilirubin AST ALT Alkaline Phosphatase Lactate Dehydrogenase Troponin T C-Reactive Protein Total Protein Albumin Prealbumin Triglycerides Cholesterol LDL Cholesterol Direct HDL Cholesterol 25-OH Vitamin D Total PTH Intact Urine pH Urine WBC (Auto) Urine Creatinine Urine Total Protein Fluid Total Protein Vancomycin Trough Rheumatoid Factor Complement C4 Miscellaneous Test Crossmatch 02/21/17 02/21/17 02/22/17 17:16 23:41 04:10 WBC RBC Hgb Hct MCV MCH MCHC RDW Plt Count Lymph % (Auto) [place] % (Auto) Lymph # [place] # Baso # Seg Neutrophils % Seg Neuts % (Manual) Lymphocytes % (Manual) Monocytes % (Manual) Eosinophils % (Manual) Basophils % (Manual) Nucleated RBC % Seg Neutrophils # Seg Neutrophils # Man Lymphocytes # (Manual) Monocytes # (Manual) Eosinophils # (Manual) Basophils # (Manual) PT INR Fibrinogen dRVVT Confirm Interp Factor V Activity POC ABG pH POC ABG pCO2 POC ABG pO2 ABG pO2 ABG HCO3 ABG Base Excess ABG Hemoglobin Oxyhemoglobin Sodium 135 L Potassium Chloride 97.7 L Carbon Dioxide 21 L BUN 101 H Creatinine 2.5 H Glucose 116 H POC Glucose 120 H 128 H Lactic Acid Calcium Ionized Calcium Phosphorus Magnesium Direct Bilirubin AST ALT Alkaline Phosphatase Lactate Dehydrogenase Troponin T C-Reactive Protein Total Protein Albumin 1.3 L Prealbumin Triglycerides Cholesterol LDL Cholesterol Direct HDL Cholesterol 25-OH Vitamin D Total PTH Intact Urine pH Urine WBC (Auto) Urine Creatinine Urine Total Protein Fluid Total Protein Vancomycin Trough Rheumatoid Factor Complement C4 Miscellaneous Test Crossmatch 02/22/17 02/22/17 02/22/17 06:03 11:38 18:19 WBC RBC Hgb Hct MCV MCH MCHC RDW Plt Count Lymph % (Auto) [place] % (Auto) Lymph # [place] # Baso # Seg Neutrophils % Seg Neuts % (Manual) Lymphocytes % (Manual) Monocytes % (Manual) Eosinophils % (Manual) Basophils % (Manual) Nucleated RBC % Seg Neutrophils # Seg Neutrophils # Man Lymphocytes # (Manual) Monocytes # (Manual) Eosinophils # (Manual) Basophils # (Manual) PT INR Fibrinogen dRVVT Confirm Interp Factor V Activity POC ABG pH POC ABG pCO2 POC ABG pO2 ABG pO2 ABG HCO3 ABG Base Excess ABG Hemoglobin Oxyhemoglobin Sodium Potassium Chloride Carbon Dioxide BUN Creatinine Glucose POC Glucose 126 H 147 H 121 H Lactic Acid Calcium Ionized Calcium Phosphorus Magnesium Direct Bilirubin AST ALT Alkaline Phosphatase Lactate Dehydrogenase Troponin T C-Reactive Protein Total Protein Albumin Prealbumin Triglycerides Cholesterol LDL Cholesterol Direct HDL Cholesterol 25-OH Vitamin D Total PTH Intact Urine pH Urine WBC (Auto) Urine Creatinine Urine Total Protein Fluid Total Protein Vancomycin Trough Rheumatoid Factor Complement C4 Miscellaneous Test Crossmatch 02/23/17 02/23/17 02/23/17 05:00 05:46 12:27 WBC RBC Hgb Hct MCV MCH MCHC RDW Plt Count Lymph % (Auto) [place] % (Auto) Lymph # [place] # Baso # Seg Neutrophils % Seg Neuts % (Manual) Lymphocytes % (Manual) Monocytes % (Manual) Eosinophils % (Manual) Basophils % (Manual) Nucleated RBC % Seg Neutrophils # Seg Neutrophils # Man Lymphocytes # (Manual) Monocytes # (Manual) Eosinophils # (Manual) Basophils # (Manual) PT INR Fibrinogen dRVVT Confirm Interp Factor V Activity POC ABG pH POC ABG pCO2 POC ABG pO2 ABG pO2 ABG HCO3 ABG Base Excess ABG Hemoglobin Oxyhemoglobin Sodium 136 L Potassium Chloride 97.1 L Carbon Dioxide BUN 50 H Creatinine 1.5 H Glucose POC Glucose 110 H 115 H Lactic Acid Calcium 8.1 L Ionized Calcium Phosphorus 1.90 L D Magnesium Direct Bilirubin AST ALT Alkaline Phosphatase Lactate Dehydrogenase Troponin T C-Reactive Protein Total Protein Albumin Prealbumin Triglycerides Cholesterol LDL Cholesterol Direct HDL Cholesterol 25-OH Vitamin D Total PTH Intact Urine pH Urine WBC (Auto) Urine Creatinine Urine Total Protein Fluid Total Protein Vancomycin Trough Rheumatoid Factor Complement C4 Miscellaneous Test Crossmatch 02/23/17 02/23/17 02/24/17 18:02 23:18 05:04 WBC RBC Hgb Hct MCV MCH MCHC RDW Plt Count Lymph % (Auto) [place] % (Auto) Lymph # [place] # Baso # Seg Neutrophils % Seg Neuts % (Manual) Lymphocytes % (Manual) Monocytes % (Manual) Eosinophils % (Manual) Basophils % (Manual) Nucleated RBC % Seg Neutrophils # Seg Neutrophils # Man Lymphocytes # (Manual) Monocytes # (Manual) Eosinophils # (Manual) Basophils # (Manual) PT INR Fibrinogen dRVVT Confirm Interp Factor V Activity POC ABG pH POC ABG pCO2 POC ABG pO2 ABG pO2 ABG HCO3 ABG Base Excess ABG Hemoglobin Oxyhemoglobin Sodium Potassium Chloride Carbon Dioxide BUN Creatinine Glucose POC Glucose 111 H 126 H 121 H Lactic Acid Calcium Ionized Calcium Phosphorus Magnesium Direct Bilirubin AST ALT Alkaline Phosphatase Lactate Dehydrogenase Troponin T C-Reactive Protein Total Protein Albumin Prealbumin Triglycerides Cholesterol LDL Cholesterol Direct HDL Cholesterol 25-OH Vitamin D Total PTH Intact Urine pH Urine WBC (Auto) Urine Creatinine Urine Total Protein Fluid Total Protein Vancomycin Trough Rheumatoid Factor Complement C4 Miscellaneous Test Crossmatch 02/24/17 02/24/17 02/24/17 05:20 10:05 11:34 WBC RBC 2.95 L Hgb 8.4 L Hct 25.7 L MCV MCH MCHC RDW 20.8 H Plt Count Lymph % (Auto) [place] % (Auto) Lymph # [place] # Baso # Seg Neutrophils % 71.8 H Seg Neuts % (Manual) Lymphocytes % (Manual) Monocytes % (Manual) Eosinophils % (Manual) Basophils % (Manual) Nucleated RBC % Seg Neutrophils # Seg Neutrophils # Man Lymphocytes # (Manual) Monocytes # (Manual) Eosinophils # (Manual) Basophils # (Manual) PT INR Fibrinogen dRVVT Confirm Interp Factor V Activity POC ABG pH POC ABG pCO2 POC ABG pO2 ABG pO2 ABG HCO3 ABG Base Excess ABG Hemoglobin Oxyhemoglobin Sodium 136 L Potassium Chloride 95.5 L Carbon Dioxide BUN 76 H Creatinine 2.2 H Glucose 109 H POC Glucose 123 H Lactic Acid Calcium Ionized Calcium Phosphorus Magnesium Direct Bilirubin AST ALT Alkaline Phosphatase Lactate Dehydrogenase Troponin T C-Reactive Protein Total Protein Albumin Prealbumin Triglycerides Cholesterol LDL Cholesterol Direct HDL Cholesterol 25-OH Vitamin D Total PTH Intact Urine pH Urine WBC (Auto) Urine Creatinine Urine Total Protein Fluid Total Protein Vancomycin Trough Rheumatoid Factor Complement C4 Miscellaneous Test Crossmatch 02/24/17 02/24/17 02/25/17 17:43 23:02 05:00 WBC RBC Hgb Hct MCV MCH MCHC RDW Plt Count Lymph % (Auto) [place] % (Auto) Lymph # [place] # Baso # Seg Neutrophils % Seg Neuts % (Manual) Lymphocytes % (Manual) Monocytes % (Manual) Eosinophils % (Manual) Basophils % (Manual) Nucleated RBC % Seg Neutrophils # Seg Neutrophils # Man Lymphocytes # (Manual) Monocytes # (Manual) Eosinophils # (Manual) Basophils # (Manual) PT INR Fibrinogen dRVVT Confirm Interp Factor V Activity POC ABG pH POC ABG pCO2 POC ABG pO2 ABG pO2 ABG HCO3 ABG Base Excess ABG Hemoglobin Oxyhemoglobin Sodium Potassium Chloride 96.8 L Carbon Dioxide BUN 94 H Creatinine 2.8 H Glucose 118 H POC Glucose 128 H 144 H Lactic Acid Calcium Ionized Calcium Phosphorus Magnesium Direct Bilirubin AST ALT Alkaline Phosphatase Lactate Dehydrogenase Troponin T C-Reactive Protein Total Protein Albumin Prealbumin Triglycerides Cholesterol LDL Cholesterol Direct HDL Cholesterol 25-OH Vitamin D Total PTH Intact Urine pH Urine WBC (Auto) Urine Creatinine Urine Total Protein Fluid Total Protein Vancomycin Trough Rheumatoid Factor Complement C4 Miscellaneous Test Crossmatch 02/25/17 02/25/17 02/25/17 05:32 11:44 18:18 WBC RBC Hgb Hct MCV MCH MCHC RDW Plt Count Lymph % (Auto) [place] % (Auto) Lymph # [place] # Baso # Seg Neutrophils % Seg Neuts % (Manual) Lymphocytes % (Manual) Monocytes % (Manual) Eosinophils % (Manual) Basophils % (Manual) Nucleated RBC % Seg Neutrophils # Seg Neutrophils # Man Lymphocytes # (Manual) Monocytes # (Manual) Eosinophils # (Manual) Basophils # (Manual) PT INR Fibrinogen dRVVT Confirm Interp Factor V Activity POC ABG pH POC ABG pCO2 POC ABG pO2 ABG pO2 ABG HCO3 ABG Base Excess ABG Hemoglobin Oxyhemoglobin Sodium Potassium Chloride Carbon Dioxide BUN Creatinine Glucose POC Glucose 118 H 106 H 210 H Lactic Acid Calcium Ionized Calcium Phosphorus Magnesium Direct Bilirubin AST ALT Alkaline Phosphatase Lactate Dehydrogenase Troponin T C-Reactive Protein Total Protein Albumin Prealbumin Triglycerides Cholesterol LDL Cholesterol Direct HDL Cholesterol 25-OH Vitamin D Total PTH Intact Urine pH Urine WBC (Auto) Urine Creatinine Urine Total Protein Fluid Total Protein Vancomycin Trough Rheumatoid Factor Complement C4 Miscellaneous Test Crossmatch 02/26/17 02/26/17 02/26/17 00:07 05:14 12:07 WBC RBC Hgb Hct MCV MCH MCHC RDW Plt Count Lymph % (Auto) [place] % (Auto) Lymph # [place] # Baso # Seg Neutrophils % Seg Neuts % (Manual) Lymphocytes % (Manual) Monocytes % (Manual) Eosinophils % (Manual) Basophils % (Manual) Nucleated RBC % Seg Neutrophils # Seg Neutrophils # Man Lymphocytes # (Manual) Monocytes # (Manual) Eosinophils # (Manual) Basophils # (Manual) PT INR Fibrinogen dRVVT Confirm Interp Factor V Activity POC ABG pH POC ABG pCO2 POC ABG pO2 ABG pO2 ABG HCO3 ABG Base Excess ABG Hemoglobin Oxyhemoglobin Sodium Potassium Chloride Carbon Dioxide BUN Creatinine Glucose POC Glucose 136 H 142 H 132 H Lactic Acid Calcium Ionized Calcium Phosphorus Magnesium Direct Bilirubin AST ALT Alkaline Phosphatase Lactate Dehydrogenase Troponin T C-Reactive Protein Total Protein Albumin Prealbumin Triglycerides Cholesterol LDL Cholesterol Direct HDL Cholesterol 25-OH Vitamin D Total PTH Intact Urine pH Urine WBC (Auto) Urine Creatinine Urine Total Protein Fluid Total Protein Vancomycin Trough Rheumatoid Factor Complement C4 Miscellaneous Test Crossmatch 02/26/17 02/26/17 02/27/17 18:35 23:54 06:25 WBC RBC Hgb Hct MCV MCH MCHC RDW Plt Count Lymph % (Auto) [place] % (Auto) Lymph # [place] # Baso # Seg Neutrophils % Seg Neuts % (Manual) Lymphocytes % (Manual) Monocytes % (Manual) Eosinophils % (Manual) Basophils % (Manual) Nucleated RBC % Seg Neutrophils # Seg Neutrophils # Man Lymphocytes # (Manual) Monocytes # (Manual) Eosinophils # (Manual) Basophils # (Manual) PT INR Fibrinogen dRVVT Confirm Interp Factor V Activity POC ABG pH POC ABG pCO2 POC ABG pO2 ABG pO2 ABG HCO3 ABG Base Excess ABG Hemoglobin Oxyhemoglobin Sodium Potassium Chloride Carbon Dioxide BUN Creatinine Glucose POC Glucose 155 H 150 H 138 H Lactic Acid Calcium Ionized Calcium Phosphorus Magnesium Direct Bilirubin AST ALT Alkaline Phosphatase Lactate Dehydrogenase Troponin T C-Reactive Protein Total Protein Albumin Prealbumin Triglycerides Cholesterol LDL Cholesterol Direct HDL Cholesterol 25-OH Vitamin D Total PTH Intact Urine pH Urine WBC (Auto) Urine Creatinine Urine Total Protein Fluid Total Protein Vancomycin Trough Rheumatoid Factor Complement C4 Miscellaneous Test Crossmatch 02/27/17 02/27/17 02/27/17 08:50 11:50 17:38 WBC RBC Hgb Hct MCV MCH MCHC RDW Plt Count Lymph % (Auto) [place] % (Auto) Lymph # [place] # Baso # Seg Neutrophils % Seg Neuts % (Manual) Lymphocytes % (Manual) Monocytes % (Manual) Eosinophils % (Manual) Basophils % (Manual) Nucleated RBC % Seg Neutrophils # Seg Neutrophils # Man Lymphocytes # (Manual) Monocytes # (Manual) Eosinophils # (Manual) Basophils # (Manual) PT INR Fibrinogen dRVVT Confirm Interp Factor V Activity POC ABG pH POC ABG pCO2 POC ABG pO2 ABG pO2 ABG HCO3 ABG Base Excess ABG Hemoglobin Oxyhemoglobin Sodium Potassium 3.2 L Chloride Carbon Dioxide BUN 95 H Creatinine 2.7 H Glucose 179 H POC Glucose 150 H 133 H Lactic Acid Calcium Ionized Calcium Phosphorus Magnesium Direct Bilirubin AST ALT Alkaline Phosphatase Lactate Dehydrogenase Troponin T C-Reactive Protein Total Protein Albumin Prealbumin Triglycerides Cholesterol LDL Cholesterol Direct HDL Cholesterol 25-OH Vitamin D Total PTH Intact Urine pH Urine WBC (Auto) Urine Creatinine Urine Total Protein Fluid Total Protein Vancomycin Trough Rheumatoid Factor Complement C4 Miscellaneous Test Crossmatch 02/27/17 02/28/17 02/28/17 23:55 05:23 06:10 WBC RBC Hgb Hct MCV MCH MCHC RDW Plt Count Lymph % (Auto) [place] % (Auto) Lymph # [place] # Baso # Seg Neutrophils % Seg Neuts % (Manual) Lymphocytes % (Manual) Monocytes % (Manual) Eosinophils % (Manual) Basophils % (Manual) Nucleated RBC % Seg Neutrophils # Seg Neutrophils # Man Lymphocytes # (Manual) Monocytes # (Manual) Eosinophils # (Manual) Basophils # (Manual) PT INR Fibrinogen dRVVT Confirm Interp Factor V Activity POC ABG pH POC ABG pCO2 POC ABG pO2 ABG pO2 ABG HCO3 ABG Base Excess ABG Hemoglobin Oxyhemoglobin Sodium 134 L Potassium 3.0 L Chloride 94.9 L Carbon Dioxide BUN 53 H Creatinine 1.9 H Glucose 138 H POC Glucose 134 H 164 H Lactic Acid Calcium Ionized Calcium Phosphorus 2.00 L D Magnesium Direct Bilirubin AST ALT Alkaline Phosphatase Lactate Dehydrogenase Troponin T C-Reactive Protein Total Protein Albumin Prealbumin Triglycerides Cholesterol LDL Cholesterol Direct HDL Cholesterol 25-OH Vitamin D Total PTH Intact Urine pH Urine WBC (Auto) Urine Creatinine Urine Total Protein Fluid Total Protein Vancomycin Trough Rheumatoid Factor Complement C4 Miscellaneous Test Crossmatch 02/28/17 02/28/17 02/28/17 12:18 17:54 23:47 WBC RBC Hgb Hct MCV MCH MCHC RDW Plt Count Lymph % (Auto) [place] % (Auto) Lymph # [place] # Baso # Seg Neutrophils % Seg Neuts % (Manual) Lymphocytes % (Manual) Monocytes % (Manual) Eosinophils % (Manual) Basophils % (Manual) Nucleated RBC % Seg Neutrophils # Seg Neutrophils # Man Lymphocytes # (Manual) Monocytes # (Manual) Eosinophils # (Manual) Basophils # (Manual) PT INR Fibrinogen dRVVT Confirm Interp Factor V Activity POC ABG pH POC ABG pCO2 POC ABG pO2 ABG pO2 ABG HCO3 ABG Base Excess ABG Hemoglobin Oxyhemoglobin Sodium Potassium Chloride Carbon Dioxide BUN Creatinine Glucose POC Glucose 135 H 140 H 144 H Lactic Acid Calcium Ionized Calcium Phosphorus Magnesium Direct Bilirubin AST ALT Alkaline Phosphatase Lactate Dehydrogenase Troponin T C-Reactive Protein Total Protein Albumin Prealbumin Triglycerides Cholesterol LDL Cholesterol Direct HDL Cholesterol 25-OH Vitamin D Total PTH Intact Urine pH Urine WBC (Auto) Urine Creatinine Urine Total Protein Fluid Total Protein Vancomycin Trough Rheumatoid Factor Complement C4 Miscellaneous Test Crossmatch 03/01/17 03/01/17 03/01/17 04:00 12:02 17:13 WBC RBC Hgb Hct MCV MCH MCHC RDW Plt Count Lymph % (Auto) [place] % (Auto) Lymph # [place] # Baso # Seg Neutrophils % Seg Neuts % (Manual) Lymphocytes % (Manual) Monocytes % (Manual) Eosinophils % (Manual) Basophils % (Manual) Nucleated RBC % Seg Neutrophils # Seg Neutrophils # Man Lymphocytes # (Manual) Monocytes # (Manual) Eosinophils # (Manual) Basophils # (Manual) PT INR Fibrinogen dRVVT Confirm Interp Factor V Activity POC ABG pH POC ABG pCO2 POC ABG pO2 ABG pO2 ABG HCO3 ABG Base Excess ABG Hemoglobin Oxyhemoglobin Sodium Potassium 3.0 L Chloride 97.0 L Carbon Dioxide BUN 81 H Creatinine 2.6 H Glucose 121 H POC Glucose 165 H 126 H Lactic Acid Calcium Ionized Calcium Phosphorus Magnesium Direct Bilirubin AST ALT Alkaline Phosphatase Lactate Dehydrogenase Troponin T C-Reactive Protein Total Protein Albumin Prealbumin Triglycerides Cholesterol LDL Cholesterol Direct HDL Cholesterol 25-OH Vitamin D Total PTH Intact Urine pH Urine WBC (Auto) Urine Creatinine Urine Total Protein Fluid Total Protein Vancomycin Trough Rheumatoid Factor Complement C4 Miscellaneous Test Crossmatch 03/02/17 03/02/17 03/02/17 00:10 03:05 05:20 WBC RBC Hgb Hct MCV MCH MCHC RDW Plt Count Lymph % (Auto) [place] % (Auto) Lymph # [place] # Baso # Seg Neutrophils % Seg Neuts % (Manual) Lymphocytes % (Manual) Monocytes % (Manual) Eosinophils % (Manual) Basophils % (Manual) Nucleated RBC % Seg Neutrophils # Seg Neutrophils # Man Lymphocytes # (Manual) Monocytes # (Manual) Eosinophils # (Manual) Basophils # (Manual) PT INR Fibrinogen dRVVT Confirm Interp Factor V Activity POC ABG pH POC ABG pCO2 POC ABG pO2 ABG pO2 ABG HCO3 ABG Base Excess ABG Hemoglobin Oxyhemoglobin Sodium Potassium 3.0 L Chloride Carbon Dioxide BUN 41 H Creatinine 1.6 H Glucose 130 H POC Glucose 129 H 173 H Lactic Acid Calcium Ionized Calcium Phosphorus 1.70 L D Magnesium 1.40 L Direct Bilirubin AST ALT Alkaline Phosphatase Lactate Dehydrogenase Troponin T C-Reactive Protein Total Protein Albumin Prealbumin Triglycerides Cholesterol LDL Cholesterol Direct HDL Cholesterol 25-OH Vitamin D Total PTH Intact Urine pH Urine WBC (Auto) Urine Creatinine Urine Total Protein Fluid Total Protein Vancomycin Trough Rheumatoid Factor Complement C4 Miscellaneous Test Crossmatch 03/02/17 03/02/17 03/02/17 11:49 16:38 23:46 WBC RBC Hgb Hct MCV MCH MCHC RDW Plt Count Lymph % (Auto) [place] % (Auto) Lymph # [place] # Baso # Seg Neutrophils % Seg Neuts % (Manual) Lymphocytes % (Manual) Monocytes % (Manual) Eosinophils % (Manual) Basophils % (Manual) Nucleated RBC % Seg Neutrophils # Seg Neutrophils # Man Lymphocytes # (Manual) Monocytes # (Manual) Eosinophils # (Manual) Basophils # (Manual) PT INR Fibrinogen dRVVT Confirm Interp Factor V Activity POC ABG pH POC ABG pCO2 POC ABG pO2 ABG pO2 ABG HCO3 ABG Base Excess ABG Hemoglobin Oxyhemoglobin Sodium Potassium Chloride Carbon Dioxide BUN Creatinine Glucose POC Glucose 129 H 141 H 119 H Lactic Acid Calcium Ionized Calcium Phosphorus Magnesium Direct Bilirubin AST ALT Alkaline Phosphatase Lactate Dehydrogenase Troponin T C-Reactive Protein Total Protein Albumin Prealbumin Triglycerides Cholesterol LDL Cholesterol Direct HDL Cholesterol 25-OH Vitamin D Total PTH Intact Urine pH Urine WBC (Auto) Urine Creatinine Urine Total Protein Fluid Total Protein Vancomycin Trough Rheumatoid Factor Complement C4 Miscellaneous Test Crossmatch 03/03/17 04:00 WBC RBC Hgb Hct MCV MCH MCHC RDW Plt Count Lymph % (Auto) [place] % (Auto) Lymph # [place] # Baso # Seg Neutrophils % Seg Neuts % (Manual) Lymphocytes % (Manual) Monocytes % (Manual) Eosinophils % (Manual) Basophils % (Manual) Nucleated RBC % Seg Neutrophils # Seg Neutrophils # Man Lymphocytes # (Manual) Monocytes # (Manual) Eosinophils # (Manual) Basophils # (Manual) PT INR Fibrinogen dRVVT Confirm Interp Factor V Activity POC ABG pH POC ABG pCO2 POC ABG pO2 ABG pO2 ABG HCO3 ABG Base Excess ABG Hemoglobin Oxyhemoglobin Sodium Potassium Chloride Carbon Dioxide BUN 70 H Creatinine 2.3 H Glucose POC Glucose Lactic Acid Calcium Ionized Calcium Phosphorus Magnesium Direct Bilirubin AST ALT Alkaline Phosphatase Lactate Dehydrogenase Troponin T C-Reactive Protein Total Protein Albumin Prealbumin Triglycerides Cholesterol LDL Cholesterol Direct HDL Cholesterol 25-OH Vitamin D Total PTH Intact Urine pH Urine WBC (Auto) Urine Creatinine Urine Total Protein Fluid Total Protein Vancomycin Trough Rheumatoid Factor Complement C4 Miscellaneous Test Crossmatch Allied health notes reviewed: nursing
--- NOTE | 2017-03-03 10:35 | Progress Note ---
Assessment and Plan Assessment: 1) Recurrent SIRS: new fever again ? resolved - Likely due to recurrent Enterococcus bacteremia should r/o endocarditis 2) History of Peritonitis: from gastric perforation from dislodged PEG with significant ascites -S/P exlap, repair of gastric perforation with wedge gastrectomy, abdominal washout, drain placement on 10/05 3) History of Candidemia: -Blood cultures positive for Silvia albicans on 09/23 and 09/25 -Blood cultures negative on 09/30 -PICC line changed on 10/03 -Source ? gastric perf (PEG placed on 09/20) +/- TPN +/- central lines -TTE 10/07 no vegetations -PICC exchanged on 10/03 -fully treated with micafungin for 14 days last day 10/13 4) History CA-UTI s/p gutierrez exchanged 5) Diarrhea - ? etiology ? antibiotic-induced, not better. 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 from GI bleed 13) Recent abdominal wall abscess at surgical site-treated 14 ) Recent Enterococcal bacteremia from PICC line infection. 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 -S/P debridement at bedside - new wound cx 01/24 +Proteus and MDR Pseudomonas (resistant to meropenem and cefepime/sensitive to ceftazidime) and wound VAC placement -CRP=24 --> 8 16) Presumed VAP: sputum + MDR Pseudomonas / Proteus / pleural effusion s/p thoracentesis 17) Resp failure - better 18) Perforated bowel: Ct showed presumed perf bowel with free air 19) Enterococcal septicemia from IV cath. TTE no vegetations Plan: -repeat blood cultures -remove permcath / PICC was removed -continue vancomycin for now total 14 days I will see patient back on 03/06 poor prognosis Thank you Dr Pierre for your consultation, will follow up with you. Pauline Carias MD Infectious Diseases Specialist [facility] ([facility] M [phone] O [phone] Subjective Date of service: 03/03/17 Principal diagnosis: Acute resp failure on MVS; S/P Acute CVA; Acute Encephalopathy; JUANITA Interval history: Interval history: remains on the vent, tachy on monitor, NO fever Microbiology: Blood cultures: 09/13 neg 09/23 Silvia albicans 09/25 Silvia 09/29 neg 10/07 neg 11/05 neg 11/07 ngtd 10 E faecalis 1 of 4 bottles 11/25 neg 12/27 neg 01/09 ngtd 02/14 ngtd 02/27 Enterococcus durans 1 of 4 bottles Urine cultures: 09/10 neg 09/13 neg 8 10-100K mixed species 10/07 neg 11/05 VRE 11/07 mixed bacteria Respiratory cultures: 09/07 neg 09/13 neg 09/23 neg 11/07 MDR Pseudomonas 11/21 tracheal + VRE 01/09 Pseudomonas x 3 and Proteues Pleural effusion: ngtd Wound cultures: 10/17 abd wall wound purulence + Pseudomonas MDR 01/24 GNRs Stool cultures: cath 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 +NGT with greenish secretion Neck: +trach in place; supple, no thyromegaly or lymphadenopathy Lungs: brit coarse BS CV: tachy Abdomen: Soft, tender, +old PEG site no drainage. +iliostomy. Right sided Surgical site x 2 with ostomy bags Extremities: +peripheral edema Skin: sacral area wounds - per wound care STAGE 4 PRESSURE INJURY TO SACRAL MEASURES 7.5X6X2.5, WITH UNDERMINING FROM @9-1 OCLOCK-2.8CM-ULCER CLEANED WITH WOUND TRANSPORT ASSISTANT-ULCER NEW - Sacrum wound measuring 9x11cm. Necrotic tissue noted on the wound edges and in the wound bed Now with a wound VAC Psych: somnolent . Neuro: alert non verbal on the vent. Lines: PICC / gutierrez - Constitutional Vitals: Vital Signs Temp Pulse Resp BP Pulse Ox 98.8 F 110 H 40 H 104/61 100 03/03/17 08:30 03/03/17 10:15 03/03/17 10:15 03/03/17 10:15 03/03/17 10:15 Temperature -Last 24 Hours Temperature 98.8 F Temperature 98.8 F Temperature 98.5 F Temperature 99.0 F Temperature 98.8 F Temperature 99.2 F Temperature 99.4 F - Labs CBC & Chem 7: 02/24/17 10:05 03/03/17 04:00 Labs: Abnormal lab results 03/02/17 03/02/17 03/02/17 Range/Units 11:49 16:38 23:46 BUN (7-17) mg/dL Creatinine (0.7-1.2) mg/dL POC Glucose 129 H 141 H 119 H (70-105) 03/03/17 Range/Units 04:00 BUN 70 H (7-17) mg/dL Creatinine 2.3 H (0.7-1.2) mg/dL POC Glucose (70-105)
[2017-03-03] MEDS: HumuLIN R SUB-Q SCH ×2 (11:18→18:49)
[2017-03-03] MEDS: HEPARIN IV PRN (12:59)
[2017-03-03] MEDS: CORDARONE 900 MG in D5W 482 ML IV SCH (13:17)
[2017-03-03] MEDS: HEPARIN SUB-Q SCH ×2 (13:17→22:12)
[2017-03-03] MEDS: PEPCID IV SCH (13:17)
--- NOTE | 2017-03-03 13:35 | Progress Note ---
Assessment and Plan Assessment * Oliguric acute kidney injury secondary to ATN on CKD - baseline SCr 1.7mg/dL; likely now ESRD * Enteroccous bacteremia - Mar 01 * GI bleed * Sepsis * Acute CVA - left MCA with midline shift * s/p Cardiac arrest * Encephalopathy * Atrial fibrillation w/ RVR * Enteric fistula * Acute hypoxic respiratory failure * Left renal artery stenosis * Anemia Plan: * Hemodialysis today * Permcath removal following HD today * Abx per ID * Adjust Ca bath with dialysis * Rate control per cardiology * Transfuse pRBC per primary team. * Epogen TIW prn * Vent management per pulm/CCM * Pressors prn for MAP>65 * Dose medications for renal function Subjective Date of service: 03/03/17 Principal diagnosis: Acute resp failure on MVS; S/P Acute CVA; Acute Encephalopathy; JUANITA Interval history: No acute events overnight. Objective - Vital Signs Vital signs: Vital Signs - 12hr 03/03/17 03/03/17 03/03/17 01:45 02:00 02:15 Temperature Pulse Rate Respiratory Rate Blood Pressure 129/76 130/74 118/73 O2 Sat by Pulse 99 99 97 Oximetry O2 Sat by Pulse Oximetry [ Throughout] 03/03/17 03/03/17 03/03/17 02:30 02:45 03:00 Temperature Pulse Rate 112 H 107 H 111 H Respiratory 21 22 23 Rate Blood Pressure 118/69 112/67 113/67 O2 Sat by Pulse 98 99 99 Oximetry O2 Sat by Pulse Oximetry [ Throughout] 03/03/17 03/03/17 03/03/17 03:15 03:30 03:45 Temperature Pulse Rate 110 H 108 H 110 H Respiratory 20 21 20 Rate Blood Pressure 115/70 117/71 120/71 O2 Sat by Pulse 99 100 100 Oximetry O2 Sat by Pulse Oximetry [ Throughout] 03/03/17 03/03/17 03/03/17 03:55 03:59 04:00 Temperature 98.5 F Pulse Rate 111 H 111 H 101 H Respiratory 24 Rate Blood Pressure 120/71 120/71 129/85 O2 Sat by Pulse 100 Oximetry O2 Sat by Pulse Oximetry [ Throughout] 03/03/17 03/03/17 03/03/17 04:15 04:30 04:45 Temperature Pulse Rate 108 H 114 H 106 H Respiratory 18 29 H 23 Rate Blood Pressure 168/87 172/92 145/79 O2 Sat by Pulse 100 Oximetry O2 Sat by Pulse Oximetry [ Throughout] 03/03/17 03/03/17 03/03/17 05:00 05:15 05:30 Temperature Pulse Rate 105 H 105 H 105 H Respiratory 22 24 24 Rate Blood Pressure 144/85 146/85 144/84 O2 Sat by Pulse Oximetry O2 Sat by Pulse Oximetry [ Throughout] 03/03/17 03/03/17 03/03/17 05:45 06:00 06:15 Temperature Pulse Rate 103 H 103 H 106 H Respiratory 21 21 24 Rate Blood Pressure 132/82 127/73 136/85 O2 Sat by Pulse Oximetry O2 Sat by Pulse Oximetry [ Throughout] 03/03/17 03/03/17 03/03/17 06:30 06:45 07:00 Temperature Pulse Rate 103 H 105 H 104 H Respiratory 19 21 22 Rate Blood Pressure 132/80 130/85 127/85 O2 Sat by Pulse Oximetry O2 Sat by Pulse Oximetry [ Throughout] 03/03/17 03/03/17 03/03/17 07:15 07:30 07:45 Temperature Pulse Rate 105 H 103 H 104 H Respiratory 24 18 21 Rate Blood Pressure 127/82 132/85 137/85 O2 Sat by Pulse Oximetry O2 Sat by Pulse Oximetry [ Throughout] 03/03/17 03/03/17 03/03/17 08:00 08:15 08:30 Temperature 98.8 F 98.8 F Pulse Rate 112 H 107 H 106 H Respiratory 18 20 39 H Rate Blood Pressure 134/81 141/80 155/81 O2 Sat by Pulse 99 100 Oximetry O2 Sat by Pulse 100 Oximetry [ Throughout] 03/03/17 03/03/17 03/03/17 08:40 08:45 09:00 Temperature Pulse Rate 101 H 102 H 109 H Respiratory 33 H 32 H Rate Blood Pressure 141/69 137/72 137/77 O2 Sat by Pulse 100 100 Oximetry O2 Sat by Pulse Oximetry [ Throughout] 03/03/17 03/03/17 03/03/17 09:15 09:30 09:45 Temperature Pulse Rate 109 H 107 H 110 H Respiratory 40 H 38 H 36 H Rate Blood Pressure 130/79 108/67 102/68 O2 Sat by Pulse 100 100 100 Oximetry O2 Sat by Pulse Oximetry [ Throughout] 03/03/17 03/03/17 03/03/17 10:00 10:15 10:30 Temperature Pulse Rate 124 H 110 H 113 H Respiratory 37 H 40 H 36 H Rate Blood Pressure 106/53 104/61 100/58 O2 Sat by Pulse 97 100 100 Oximetry O2 Sat by Pulse Oximetry [ Throughout] 03/03/17 03/03/17 03/03/17 10:45 11:00 11:15 Temperature Pulse Rate 116 H 113 H 117 H Respiratory 20 37 H 40 H Rate Blood Pressure 109/76 94/61 89/55 O2 Sat by Pulse 100 100 99 Oximetry O2 Sat by Pulse Oximetry [ Throughout] 03/03/17 03/03/17 03/03/17 11:17 11:30 11:45 Temperature Pulse Rate 115 H 62 118 H Respiratory 38 H 41 H Rate Blood Pressure 109/55 100/59 109/70 O2 Sat by Pulse 99 100 Oximetry O2 Sat by Pulse Oximetry [ Throughout] 03/03/17 03/03/17 03/03/17 12:00 12:15 12:30 Temperature Pulse Rate 117 H 115 H 129 H Respiratory 40 H 43 H 32 H Rate Blood Pressure 115/64 106/65 97/58 O2 Sat by Pulse 100 100 97 Oximetry O2 Sat by Pulse Oximetry [ Throughout] 03/03/17 03/03/17 12:34 12:45 Temperature Pulse Rate 129 H 111 H Respiratory 31 H Rate Blood Pressure 97/58 122/74 O2 Sat by Pulse 98 Oximetry O2 Sat by Pulse Oximetry [ Throughout] - General Appearance General appearance: chronically ill EENT: ATNC Neck: other (trach) Respiratory: Present: Ronchi Cardiology: tachycardia Gastrointestinal: hypoactive bowel sounds Neurologic: other (no meaningful response to tactile/verbal stimuli) Musculoskeletal: other (dependent edema) - Lab 02/24/17 10:05 03/03/17 04:00 Most recent lab results ABG pH 7.450 pH Units (7.350-7.450) 12/05/16 Unknown ABG pCO2 29.6 mm Hg 12/05/16 Unknown ABG pO2 75.2 mm Hg (80.0-90.0) L 12/05/16 Unknown ABG HCO3 20.1 mmol/L (20.0-26.0) 12/05/16 Unknown ABG O2 Saturation 96.8 % (95.0-99.0) 12/05/16 Unknown Calcium 9.2 mg/dL (8.4-10.2) 03/03/17 04:00 Phosphorus 4.10 mg/dL (2.5-4.5) D 03/03/17 04:00 Magnesium 2.10 mg/dL (1.7-2.3) 03/03/17 04:00 Urine Creatinine 19.7 mg/dL (0.1-20.0) 11/12/16 10:18 Urine Sodium 36 mEq/L 09/16/16 19:19 Urine Total Protein 16 mg/dL (5-11.8) H 09/16/16 19:19
--- NOTE | 2017-03-03 15:29 | Progress Note ---
Assessment and Plan Assessment and plan: Patient is 46-year-old woman with a history of hypertension, diabetes, asthma, hyperlipidemia, chronic kidney disease and anxiety , who was brought in by family because, she couldn't get her words out, her face was also twisted, she was admitted for acute CVA and accelerated hypertension, she had a hx of poor adherence with her medications, and uncontrolled htn. Patient's SBP on admission was noted be greater than 260. TPA was started but this was discontinued after 5 minutes because her blood pressure became uncontrolled. The TPA was not initiated again because the patient was outside the TPA window. Fever case dw ID - Likely due to recurrent Enterococcus bacteremia should r/o endocarditis -obtain blood cx, TTE, and on vanco Status post cardiac arrest , 11/21/16 on Mechanical ventilation >96 hrs, >3 months Vent Dependant Respiratory failure secondary to Anoxic Brain injury S/P Tracheostomy Severe Sepsis with septic shock; has completed multiple courses of abx Surgical wound infection/gram-negative sepsis/candidemia/peritonitis - On TPN ESRD - on HD - Cr 1.9 today Acute CVA with infarct - Neurology input appreciated - CT shows continued evolution of left MCA infarct with slight mass effect and edema, and there is no hemorrhage - PRINCE showed hyperdynamic with ef of 75%, neither clot nor septal defect seen - MRA Brain shows near complete occlusion of M2 and M3 of the left MCA - Repeat CT scan done on 09/11, shows stable findings - carotid doppler negative - Echo shows preserved systolic function but does show some left ventricular diastolic dysfunction - continue asa and statin Persistent vegetative state - This patient's needs placement at SNF - She was denied for LTACH Nosocomial acquired aspiration pneumonia/sepsis/UTI/PERITONITIS - Has been on multiple antibiotics, expect recurrent sepsis due to now known Bowel perforation not amendable to surgery due to clinical condition A. fib with RVR -On amio drip, cannot change to PO due to persistent nausea and vomiting, NPO Diabetes type 2. -Continue sliding-scale regular insulin and Accu-Cheks. Hyperlipidemia. Continue statin Severe Protein calorie Malnutrition/Adult failure to thrive - TPN Anemia requiring multiple transfusions/acute blood loss -stable, keep hg above 7 Sacral decubitus ulcer - Status post debridement -Wound vac in place Disposition. Very poor prognosis. DNR - The high probability of a clinically significant, sudden or life threatening deterioration of the [neurologic, CV] system(s) required my full and direct attention, intervention and personal management. The aggregate critical care time was [35] minutes. This time is in addition to time spent performing reported procedures but includes the following: [x] Data Review and interpretation [x] Patient assessment and monitoring of vital signs [x] Documentation [x] Medication orders and management History Interval history: patient seen and examined, remains unresponsive on the ventilator. febrile overnight, no vomiting was tachypneic and tachycardic, overnight Hospitalist Physical - Physical exam Narrative exam: GEN: Ill appearing, trach, staring into space,, non purposeful movement NECK: SUPPLE, trach in place, ngt in place and to suction. CVS:Irregular Irregular with LUNGS/CHEST: NORMAL CHEST EXPANSION B, GOOD AIR ENTRY B, tachypena ABD: SOFT, no grimise on abdominal palpation, Ostomy bags at two side by side fistula site. GBS, NO REBOUND OR GUARDING, peg tube in place EXT/SKIN: NO SIGNIFICANT EDEMA BUT WITH UNSTAGEABLE SACRAL DECUB, wound vac inplace MSK: +spontaneous non purposeful movement NEURO: on a ventilator and unresponsive despite being off sedation PSY: Comatose, - Constitutional Vitals: Temp Pulse Resp BP Pulse Ox 99.4 F 111 H 31 H 122/74 100 03/03/17 12:00 03/03/17 12:45 03/03/17 12:45 03/03/17 12:45 03/03/17 12:45 General appearance: Present: no acute distress, well-nourished Results - Labs CBC & Chem 7: 02/24/17 10:05 03/03/17 04:00 Labs: Laboratory Last Values WBC 10.2 K/mm3 (4.5-11.0) 02/24/17 10:05 RBC 2.95 M/mm3 (3.65-5.03) L 02/24/17 10:05 Hgb 8.4 gm/dl (10.1-14.3) L 02/24/17 10:05 Hct 25.7 % (30.3-42.9) L 02/24/17 10:05 MCV 87 fl (79-97) 02/24/17 10:05 MCH 28 pg (28-32) 02/24/17 10:05 MCHC 33 % (30-34) 02/24/17 10:05 RDW 20.8 % (13.2-15.2) H 02/24/17 10:05 Plt Count 333 K/mm3 (140-440) 02/24/17 10:05 Lymph % (Auto) 19.8 % (13.4-35.0) 02/24/17 10:05 Ray % (Auto) 7.2 % (0.0-7.3) 02/24/17 10:05 Eos % (Auto) 0.7 % (0.0-4.3) 02/24/17 10:05 Baso % (Auto) 0.5 % (0.0-1.8) 02/24/17 10:05 Lymph # 2.0 K/mm3 (1.2-5.4) 02/24/17 10:05 Ray # 0.7 K/mm3 (0.0-0.8) 02/24/17 10:05 Eos # 0.1 K/mm3 (0.0-0.4) 02/24/17 10:05 Baso # 0.0 K/mm3 (0.0-0.1) 02/24/17 10:05 Add Manual Diff Complete 12/19/16 05:02 Total Counted 100 12/19/16 05:02 Seg Neutrophils % 71.8 % (40.0-70.0) H 02/24/17 10:05 Seg Neuts % (Manual) 64.0 % (40.0-70.0) 12/19/16 05:02 Band Neutrophils % 15.0 % 12/19/16 05:02 Lymphocytes % (Manual) 13.0 % (13.4-35.0) L 12/19/16 05:02 Reactive Lymphs % (Man) 0 % 12/19/16 05:02 Monocytes % (Manual) 7.0 % (0.0-7.3) 12/19/16 05:02 Eosinophils % (Manual) 0 % (0.0-4.3) 12/19/16 05:02 Basophils % (Manual) 1.0 % (0.0-1.8) 12/19/16 05:02 Metamyelocytes % 0 % 12/19/16 05:02 Myelocytes % 0 % 12/19/16 05:02 Promyelocytes % 0 % 12/19/16 05:02 Blast Cells % 0 % 12/19/16 05:02 Nucleated RBC % 1.0 % (0.0-0.9) H 12/19/16 05:02 Seg Neutrophils # 7.3 K/mm3 (1.8-7.7) 02/24/17 10:05 Seg Neutrophils # Man 12.9 K/mm3 (1.8-7.7) H 12/19/16 05:02 Band Neutrophils # 3.0 K/mm3 12/19/16 05:02 Lymphocytes # (Manual) 2.6 K/mm3 (1.2-5.4) 12/19/16 05:02 Abs React Lymphs (Man) 0.0 K/mm3 12/19/16 05:02 Monocytes # (Manual) 1.4 K/mm3 (0.0-0.8) H 12/19/16 05:02 Eosinophils # (Manual) 0.0 K/mm3 (0.0-0.4) 12/19/16 05:02 Basophils # (Manual) 0.2 K/mm3 (0.0-0.1) H 12/19/16 05:02 Metamyelocytes # 0.0 K/mm3 12/19/16 05:02 Myelocytes # 0.0 K/mm3 12/19/16 05:02 Promyelocytes # 0.0 K/mm3 12/19/16 05:02 Blast Cells # 0.0 K/mm3 12/19/16 05:02 Pathologist Review 09/13/16 04:00 WBC Morphology Not Reportable 12/19/16 05:02 Hypersegmented Neuts Not Reportable 12/19/16 05:02 Hyposegmented Neuts Not Reportable 12/19/16 05:02 Hypogranular Neuts Not Reportable 12/19/16 05:02 Smudge Cells Not Reportable 12/19/16 05:02 Toxic Granulation Not Reportable 12/19/16 05:02 Toxic Vacuolation Not Reportable 12/19/16 05:02 Dohle Bodies Not Reportable 12/19/16 05:02 Pelger-Huet Anomaly Not Reportable 12/19/16 05:02 Jasmina Rods Not Reportable 12/19/16 05:02 Platelet Estimate Consistent w auto 12/19/16 05:02 Clumped Platelets Not Reportable 12/19/16 05:02 Plt Clumps, EDTA Not Reportable 12/19/16 05:02 Large Platelets Not Reportable 12/19/16 05:02 Giant Platelets Not Reportable 12/19/16 05:02 Platelet Satelliting Not Reportable 12/19/16 05:02 Plt Morphology Comment Not Reportable 12/19/16 05:02 RBC Morphology Not Reportable 12/19/16 05:02 Dimorphic RBCs Not Reportable 12/19/16 05:02 Polychromasia Not Reportable 12/19/16 05:02 Hypochromasia Not Reportable 12/19/16 05:02 Poikilocytosis Not Reportable 12/19/16 05:02 Anisocytosis Not Reportable 12/19/16 05:02 Microcytosis Not Reportable 12/19/16 05:02 Macrocytosis Not Reportable 12/19/16 05:02 Spherocytes Not Reportable 12/19/16 05:02 Pappenheimer Bodies Not Reportable 12/19/16 05:02 Sickle Cells Not Reportable 12/19/16 05:02 Target Cells Few 12/19/16 05:02 Tear Drop Cells Not Reportable 12/19/16 05:02 Ovalocytes Not Reportable 12/19/16 05:02 Stomatocytes Rare 12/03/16 04:00 Helmet Cells Not Reportable 12/19/16 05:02 [place] Bodies Not Reportable 12/19/16 05:02 Bruin Rings Not Reportable 12/19/16 05:02 [place] Cells Not Reportable 12/19/16 05:02 Bite Cells Not Reportable 12/19/16 05:02 Crenated Cell Not Reportable 12/19/16 05:02 Elliptocytes Not Reportable 12/19/16 05:02 Acanthocytes (Spur) Not Reportable 12/19/16 05:02 Rouleaux Not Reportable 12/19/16 05:02 Hemoglobin C Crystals Not Reportable 12/19/16 05:02 Schistocytes Not Reportable 12/19/16 05:02 Malaria parasites Not Reportable 12/19/16 05:02 ESR > 140.0 mm/Hr (0-20) 09/08/16 11:48 Jun Bodies Not Reportable 12/19/16 05:02 Hem Pathologist Commnt No 12/19/16 05:02 PT 15.4 Sec. (12.2-14.9) H 01/13/17 15:50 INR 1.16 (0.87-1.13) H 01/13/17 15:50 APTT 33.0 Sec. (24.2-36.6) 10/09/16 03:45 Thrombin Time 16.8 Sec. (15.1-19.6) 09/03/16 00:10 Fibrinogen 750 mg/dl (211-480) H 09/08/16 11:48 Lupus Anticoagulant see below 09/12/16 09:59 LA PTT Baseline See scanned report 09/12/16 09:59 dRVVT Confirm Interp Positive (Negative) H 09/12/16 09:59 dRVVT Screen 50:50 See scanned report 09/12/16 09:59 dRVVT Mix Interpret See scanned report 09/12/16 09:59 Protein C Antigen 122 % (70-140) 09/08/16 15:35 Free Protein S 97 % normal (50-147) 09/08/16 15:35 Total Protein S 109 % (70-140) 09/08/16 15:35 Antithrombin III Ag 100 % (80-120) 09/08/16 15:35 Heparin Anti-Xa, Unfract Negative (Negative) 09/29/16 13:35 Factor V Activity 182 % (65-150) H 09/08/16 15:35 POC ABG pH 7.436 (7.35-7.45) 01/20/17 12: ABG pH 7.450 pH Units (7.350-7.450) 12/05/16 Unknown POC ABG pCO2 35.3 (35-45) 01/20/17 12:17 ABG pCO2 29.6 mm Hg 12/05/16 Unknown POC ABG pO2 70 (80-105) L 01/20/17 12: ABG pO2 75.2 mm Hg (80.0-90.0) L 12/05/16 Unknown POC ABG HCO3 23.8 01/20/17 12:17 ABG HCO3 20.1 mmol/L (20.0-26.0) 12/05/16 Unknown POC ABG Total CO2 25 01/20/17 12:17 POC ABG O2 Sat 94 01/20/17 12:17 ABG O2 Saturation 96.8 % (95.0-99.0) 12/05/16 Unknown ABG O2 Content 9.9 (0.0-44) 12/05/16 Unknown POC ABG Base Excess 0 01/20/17 12:17 ABG Base Excess -3.4 mmol/L (-2.0-3.0) L 12/05/16 Unknown ABG Hemoglobin 7.4 gm/dl (12.0-16.0) L 12/05/16 Unknown ABG Carboxyhemoglobin 1.8 % (0.0-5.0) 12/05/16 Unknown ABG Methemoglobin 0.6 % (0.0-1.5) 12/05/16 Unknown Oxyhemoglobin 94.5 % (95.0-99.0) L 12/05/16 Unknown FiO2 30 % 01/20/17 12:17 Sodium 141 mmol/L (137-145) 03/03/17 04:00 Potassium 4.3 mmol/L (3.6-5.0) D 03/03/17 04:00 Chloride 100.5 mmol/L (98-107) 03/03/17 04:00 Carbon Dioxide 23 mmol/L (22-30) 03/03/17 04:00 Anion Gap 22 mmol/L 03/03/17 04:00 BUN 70 mg/dL (7-17) H 03/03/17 04:00 Creatinine 2.3 mg/dL (0.7-1.2) H 03/03/17 04:00 Estimated GFR 28 ml/min 03/03/17 04:00 BUN/Creatinine Ratio 30 % 03/03/17 04:00 Glucose 99 mg/dL (65-100) 03/03/17 04:00 POC Glucose 97 (70-105) 03/03/17 06:08 Osmolality 351 Mosm/kg 09/16/16 11:47 Lactic Acid 2.30 mmol/L (0.7-2.0) H* 01/09/17 08:22 Calcium 9.2 mg/dL (8.4-10.2) 03/03/17 04:00 Ionized Calcium 6.0 mg/dL (4.8-5.6) H 02/15/17 19:08 Phosphorus 4.10 mg/dL (2.5-4.5) D 03/03/17 04:00 Magnesium 2.10 mg/dL (1.7-2.3) 03/03/17 04:00 Total Bilirubin 0.50 mg/dL (0.1-1.2) 02/22/17 04:10 Direct Bilirubin 0.2 mg/dL (0-0.2) 01/28/17 04:00 Indirect Bilirubin 0.3 mg/dL 01/28/17 04:00 AST 10 units/L (5-40) 02/22/17 04:10 ALT 7 units/L (7-56) 02/22/17 04:10 Alkaline Phosphatase 95 units/L (35-129) 02/22/17 04:10 Ammonia 27.0 umol/L (25-60) 09/07/16 08:37 Lactate Dehydrogenase 170 units/L (91-180) 01/13/17 15:50 Total Creatine Kinase 121 units/L (30-135) 09/29/16 20:12 CK-MB (CK-2) < 1.0 ng/mL (0.0-4.0) 09/29/16 20:12 CK-MB (CK-2) Rel Index 0.8 (0-4) 09/29/16 20:12 Troponin T 0.204 ng/mL (0.00-0.029) H* 09/29/16 20:12 C-Reactive Protein 8.10 mg/dL (0.00-1.30) H 01/31/17 11:12 Total Protein 7.4 g/dL (6.3-8.2) 02/22/17 04:10 Albumin 1.3 g/dL (3.9-5) L 02/22/17 04:10 Albumin/Globulin Ratio 0.2 % 02/22/17 04:10 Prealbumin 0.110 g/L (0.200-0.400) L 12/29/16 05:15 Triglycerides 55 mg/dL (2-149) 02/06/17 04:45 Cholesterol 31 mg/dL (50-199) L 09/29/16 20:12 LDL Cholesterol Direct 4 mg/dL (50-130) L 09/29/16 20:12 HDL Cholesterol 3 mg/dL (40-59) L 09/29/16 20:12 Cholesterol/HDL Ratio 10.33 % 09/29/16 20:12 Angiotensin Convert Enz See scanned report 09/08/16 11:48 Renin 0.99 ng/mL/h (0.25-5.82) 10/07/16 10:56 Aldosterone <1 ng/dL () 10/07/16 10:56 Aldosterone/Renin Dir see below 10/07/16 10:56 Serotonin Release Assay See scanned report 09/29/16 13:35 25-OH Vitamin D Total 13 ng/mL (30-100) L 02/15/17 19:08 25-Hydroxy Vitamin D2 . 02/15/17 19:08 25-Hydroxy Vitamin D3 . 02/15/17 19:08 TSH 1.010 mlU/mL (0.270-4.200) 09/07/16 08:37 HCG, Qual Negative (Negative) 09/03/16 00:10 PTH Intact 10.88 pg/mL (15-65) L 02/15/17 19:08 Total Cortisol 18.2 mcg/dL () 02/02/17 20:09 Urine Color Yellow (Yellow) 11/05/16 13:09 Urine Turbidity Clear (Clear) 11/05/16 13:09 Urine pH 9.0 (5.0-7.0) H 11/05/16 13:09 Ur Specific [place] 1.011 (1.003-1.030) 11/05/16 13:09 Urine Protein 100 mg/dl mg/dL (Negative) 11/05/16 13:09 Urine Glucose (UA) Neg mg/dL (Negative) 11/05/16 13:09 Urine Ketones Neg mg/dL (Negative) 11/05/16 13:09 Urine Blood Neg (Negative) 11/05/16 13:09 Urine Nitrite Neg (Negative) 11/05/16 13:09 Urine Bilirubin Neg (Negative) 11/05/16 13:09 Urine Urobilinogen < 2.0 mg/dL (<2.0) 11/05/16 13:09 Ur Leukocyte Esterase Neg (Negative) 11/05/16 13:09 Urine WBC (Auto) 4.0 /HPF (0.0-6.0) 11/05/16 13:09 Urine RBC (Auto) 1.0 /HPF (0.0-6.0) 11/05/16 13:09 U Epithel Cells (Auto) 1.0 /HPF (0-13.0) 10/07/16 18:30 Urine Bacteria (Auto) 4+ /HPF (Negative) 11/05/16 13:09 Urine WBC Clumps 2+ /HPF 09/07/16 02:47 Hyaline Casts 4 /LPF 09/07/16 02:47 Urine Mucus Few /HPF 10/07/16 18:30 Urine Yeast (Budding) 3+ /HPF 10/07/16 18:30 Urine Eosinophils None seen (None Seen) 09/07/16 16:00 Urine Total Volume 950 11/12/16 10:18 Urine Creatinine 19.7 mg/dL (0.1-20.0) 11/12/16 10:18 Height (in) 65.0 inches 11/12/16 10:18 Weight (lb) 181.0 lbs 11/12/16 10:18 Creatinine Clearance 5 11/12/16 10:18 Urine Sodium 36 mEq/L 09/16/16 19:19 Urine Total Protein 16 mg/dL (5-11.8) H 09/16/16 19:19 Fluid Type Pleural 01/13/17 12:10 Fluid Color Yellow 01/13/17 12:10 Fluid Appearance Hazy 01/13/17 12:10 Fluid WBC 182 /mm3 01/13/17 12:10 Fluid RBC 41 /mm3 01/13/17 12:10 Fluid Seg Neutrophils 85.0 % 01/13/17 12:10 Fluid Lymphocytes 8.0 % 01/13/17 12:10 Fluid Reactive Lymphs 0 % 01/13/17 12:10 Fluid Monocytes 6.0 % 01/13/17 12:10 Fluid Eosinophils 1.0 % 01/13/17 12:10 Fluid Basophils 0 % 01/13/17 12:10 Fluid Total Protein 3.0 (15.0-45.0) L 01/13/17 12:10 Fluid LDH 1322 01/13/17 12:10 Fluid Comment Diff performed 01/13/17 12:10 Vancomycin Trough 2.3 ug/mL (5.0-20.0) L 09/21/16 13:00 Random Vancomycin 16.5 ug/mL (0-40.0) 11/28/16 09:45 Urine Opiates Screen Presumptive negative 09/03/16 15:11 Urine Methadone Screen Presumptive positive 09/03/16 15:11 Ur Barbiturates Screen Presumptive positive 09/03/16 15:11 Ur Phencyclidine Scrn Presumptive negative 09/03/16 15:11 Ur Amphetamines Screen Presumptive negative 09/03/16 15:11 U Benzodiazepines Scrn Presumptive negative 09/03/16 15:11 Urine Cocaine Screen Presumptive negative 09/03/16 15:11 U Marijuana (THC) Screen Presumptive positive 09/03/16 15:11 Drugs of Abuse Note Disclamer 09/03/16 15:11 Rheumatoid Factor 24 IU/ml (0-13) H 09/08/16 11:48 SAHIL Screen Negative (Negative) 09/07/16 09:20 Proteinase 3 (PR3) Ab <1.0 AI (<1.0) 09/07/16 09:20 Myeloperoxidase Ab <1.0 AI (<1.0) 09/07/16 09:20 Sjogren's Antibody <1.0 AI (<1.0) 09/08/16 15:35 Scl-70 Scleroderma Ab <1.0 AI (<1.0) 09/08/16 15:35 Centromere B Antibody <1.0 AI (<1.0) 09/08/16 12:02 Heparin-induced Plt Ab Negative (Negative) 09/29/16 13:35 UF Heparin High Dose 11 % Release 09/29/16 13:35 SUDHIR UFH Low Dose 0.1 6 % Release 09/29/16 13:35 SUDHIR UFH Low Dose 0.5 8 % Release 09/29/16 13:35 Cardiolipid IgG Ab <14 GPL (<=14) 09/12/16 09:59 Cardiolipid IgA Ab <11 APL (<=11) 09/12/16 09:59 Cardiolipid IgM Ab <12 MPL (<=12) 09/12/16 09:59 Complement C3 148 mg/dL (90-180) 09/07/16 09:20 Complement C4 58 mg/dL (16-47) H 09/07/16 09:20 RPR Nonreactive (Nonreactive) 09/08/16 11:48 Hepatitis A IgM Ab Non-reactive (NonReactive) 09/24/16 14:40 Hep Bs Antigen Non-reactive (Negative) 09/24/16 14:40 Hep B Core IgM Ab Non-reactive (NonReactive) 09/24/16 14:40 Hepatitis C Antibody Non-reactive (NonReactive) 09/24/16 14:40 HIV 1&2 Antibody Rapid Non react (Non React) 09/08/16 11:48 HIV P24 Antigen Non react (Non React) 09/08/16 11:48 Miscellaneous Test Flexitest 1 H 01/09/17 18:45 Blood Type A POSITIVE 02/12/17 10:25 Antibody Screen Negative 02/12/17 10:25 DELORIS Antibody Screen Negative 11/24/16 11:20 Crossmatch See Detail 02/12/17 10:25
--- NOTE | 2017-03-03 15:46 | Post Operative Note ---
Date of procedure: 03/03/17 Pre-op diagnosis: Bacteremia Post-op diagnosis: same Procedure: left IJ permcath removal Anesthesia: none Surgeon: BOOGIE REIS Estimated blood loss: none Pathology: none Disposition: no change
--- NOTE | 2017-03-03 16:44 | Operative Report ---
Operative Report Operative Report: EXAM: Tunneled catheter removal DATE: 03/03/2017 INDICATION: Bacteremia with request for tunneled catheter removal. MEDICATIONS: Please see nursing report for full details. ENGINEER SERGEANT: BOOGIE REIS MD CONTRAST: None PROCEDURE: The risks, benefits, and alternatives were discussed; written informed consent was obtained. The patient was positioned with the head towards the contralateral side. The tunneled catheter was prepped and draped in a sterile fashion. Lidocaine was infiltrated at the dermatotomy site. Heparin was withdrawn from both lumens. Using a hemostat, blunt dissection was performed and the cuff was extracted. The catheter was extracted and pressure was held at the venotomy and dermatotomy site until hemostasis was achieved. Sterile bandage was then applied. The patient tolerated the procedure without issue. FINDINGS: Successful removal of the tunneled catheter. IMPRESSION: Successful removal of the left internal jugular vein tunneled catheter.
[2017-03-03] MEDS ORDERED: TPN ADULT IV SCH (20:00)
[2017-03-03] MEDS ORDERED: INTRALIPID 20% 250 ML IV SCH (20:00)
[2017-03-03] MEDS: VANCOMYCIN VIAL 1,000 MG in NACL 0.9% 100 ML IV SCH (20:00)
[2017-03-04] MEDS: LOPRESSOR IV SCH ×5 (02:00→20:00)
[2017-03-04] MEDS: HumuLIN R SUB-Q SCH ×3 (06:00→12:01)
[2017-03-04] MEDS: REGLAN IV SCH ×3 (06:29→22:00)
[2017-03-04 07:17] LABS: Calcium 8.8 mg/dL (8.4-10.2)
[2017-03-04] MEDS: DUONEB *Not for PRN Use IH SCH ×3 (09:13→19:38)
[2017-03-04] MEDS: PEPCID IV SCH (09:51)
[2017-03-04] MEDS: HEPARIN SUB-Q SCH ×2 (09:51→22:00)
--- NOTE | 2017-03-04 12:28 | Progress Note ---
Assessment and Plan Acute Hypoxemic Respiratory Failure (now with exacerbation and back on MVS) Hypertension (unable to receive p.o. meds) Atrial Fibrillation with RVR s/p tracheostomy Acute encephalopathy s/p CVA Oropharyngeal dysphagia Enterococcal bacteremia sepsis syndrome Sacral Decubitus Ulcer (s/p surgical debridement) Anemia Obesity JUANITA now on hemodialysis Enteric Fistula (Again discussed care plan and prognosis at length with her brother) - keep on with daily t-piece/PSV trials as tolerated - continue scheduled IV metoprolol with hold parameters - follow 2D ECHO re: ? SBE - stop Amiodarone drip once rate better controlled - continue to hold tube feeds due to continued intolerance; continue reglan at 10mg IV q8h - continue NGT to LIS - remains on amiodarone drip for persistent tachycardia - prn CXR's at this point - appreciate surgery input - continue fentanyl patch for pain issues especially s/p debridement - continue wound care per WCT and RN's (she is s/p surgical debridement) - continue anti-infectives per ID recs (Vancomycin now) - prn CRP & lactate levels if clinically indicated (Follow WBC also) - continue TPN administration (Change to PPN re: vascular access issues) - continue robinul & scopolamine for secretion control - continue to wean FiO2 for sats > 94% - continue bronchodilators and pulmonary toilet - VAP bundle addressed - continue to follow electrolytes and correct as necessary - continue GI & VTE prophylaxis - Continue flu & pneumovax per protocol - ethics consult placed and pending .....she remains critically ill on life sustaining interventions including MVS and at risk for further deterioration including ....30' CCT ....care plan discussed at length during team rounds ...buttermaker prognosis remains guarded and this has intermittently been conveyed to family Subjective Date of service: 03/04/17 Principal diagnosis: Acute resp failure on MVS; S/P Acute CVA; Acute Encephalopathy; JUANITA Interval history: Patient is seen today for: Acute resp failure on MVS; S/P Acute CVA; Acute Encephalopathy; JUANITA Seen and examined at bedside; 24hour events reviewed; nursing and respiratory care staff consulted; no adverse overnight events reported to me; remains on MVS ; AMS is persistent; vas-cath pulled yesterday; brother visiting; did not tolerate T-piece today (tolerated for about 8 hours yesterday) Objective Vital Signs - 12hr 03/04/17 03/04/17 03/04/17 00:30 00:45 01:00 Temperature Pulse Rate 109 H 109 H 110 H Pulse Rate [ Anterior Bilateral Throughout] Pulse Rate [ Apical] Respiratory 16 17 19 Rate Respiratory Rate [Anterior Bilateral Throughout] Blood Pressure 91/49 89/50 85/50 O2 Sat by Pulse 97 96 97 Oximetry O2 Sat by Pulse Oximetry [ Assessment] 03/04/17 03/04/17 03/04/17 01:15 01:30 01:45 Temperature Pulse Rate 110 H 110 H 116 H Pulse Rate [ Anterior Bilateral Throughout] Pulse Rate [ Apical] Respiratory 19 22 23 Rate Respiratory Rate [Anterior Bilateral Throughout] Blood Pressure 90/49 97/44 94/53 O2 Sat by Pulse 97 97 96 Oximetry O2 Sat by Pulse Oximetry [ Assessment] 03/04/17 03/04/17 03/04/17 02:00 02:15 02:30 Temperature Pulse Rate 116 H 114 H 113 H Pulse Rate [ Anterior Bilateral Throughout] Pulse Rate [ Apical] Respiratory 22 19 21 Rate Respiratory Rate [Anterior Bilateral Throughout] Blood Pressure 94/53 88/51 90/61 O2 Sat by Pulse 96 96 96 Oximetry O2 Sat by Pulse Oximetry [ Assessment] 03/04/17 03/04/17 03/04/17 02:45 03:00 03:15 Temperature Pulse Rate 114 H 116 H 114 H Pulse Rate [ Anterior Bilateral Throughout] Pulse Rate [ Apical] Respiratory 24 23 19 Rate Respiratory Rate [Anterior Bilateral Throughout] Blood Pressure 91/55 87/53 93/56 O2 Sat by Pulse 96 96 96 Oximetry O2 Sat by Pulse Oximetry [ Assessment] 03/04/17 03/04/17 03/04/17 03:30 03:45 04:00 Temperature 99.3 F Pulse Rate 114 H 115 H 123 H Pulse Rate [ Anterior Bilateral Throughout] Pulse Rate [ 118 H Apical] Respiratory 21 21 18 Rate Respiratory Rate [Anterior Bilateral Throughout] Blood Pressure 94/47 99/57 120/68 O2 Sat by Pulse 96 97 98 Oximetry O2 Sat by Pulse Oximetry [ Assessment] 03/04/17 03/04/17 03/04/17 04:14 04:15 04:30 Temperature Pulse Rate 122 H 123 H 126 H Pulse Rate [ Anterior Bilateral Throughout] Pulse Rate [ Apical] Respiratory 23 22 Rate Respiratory Rate [Anterior Bilateral Throughout] Blood Pressure 120/68 111/67 125/70 O2 Sat by Pulse 96 95 96 Oximetry O2 Sat by Pulse Oximetry [ Assessment] 03/04/17 03/04/17 03/04/17 04:45 05:00 05:15 Temperature Pulse Rate 131 H 130 H 129 H Pulse Rate [ Anterior Bilateral Throughout] Pulse Rate [ Apical] Respiratory 24 23 22 Rate Respiratory Rate [Anterior Bilateral Throughout] Blood Pressure 137/82 126/71 137/75 O2 Sat by Pulse 95 95 95 Oximetry O2 Sat by Pulse Oximetry [ Assessment] 03/04/17 03/04/17 03/04/17 05:30 05:45 06:00 Temperature Pulse Rate 128 H 129 H 131 H Pulse Rate [ Anterior Bilateral Throughout] Pulse Rate [ Apical] Respiratory 21 22 24 Rate Respiratory Rate [Anterior Bilateral Throughout] Blood Pressure 126/65 127/70 126/71 O2 Sat by Pulse 95 97 96 Oximetry O2 Sat by Pulse Oximetry [ Assessment] 03/04/17 03/04/17 03/04/17 06:15 06:29 06:30 Temperature Pulse Rate 115 H 130 H 119 H Pulse Rate [ Anterior Bilateral Throughout] Pulse Rate [ Apical] Respiratory 24 37 H Rate Respiratory Rate [Anterior Bilateral Throughout] Blood Pressure 139/76 139/76 112/66 O2 Sat by Pulse 96 94 Oximetry O2 Sat by Pulse Oximetry [ Assessment] 03/04/17 03/04/17 03/04/17 06:45 07:00 07:15 Temperature Pulse Rate 119 H 118 H 118 H Pulse Rate [ Anterior Bilateral Throughout] Pulse Rate [ Apical] Respiratory 22 20 25 H Rate Respiratory Rate [Anterior Bilateral Throughout] Blood Pressure 110/56 108/52 104/53 O2 Sat by Pulse 98 98 95 Oximetry O2 Sat by Pulse Oximetry [ Assessment] 03/04/17 03/04/17 03/04/17 07:30 07:45 08:00 Temperature 100.4 F H Pulse Rate 118 H 119 H 118 H Pulse Rate [ Anterior Bilateral Throughout] Pulse Rate [ 118 H Apical] Respiratory 18 19 22 Rate Respiratory Rate [Anterior Bilateral Throughout] Blood Pressure 106/52 101/59 95/48 O2 Sat by Pulse 97 97 88 Oximetry O2 Sat by Pulse Oximetry [ Assessment] 03/04/17 03/04/17 03/04/17 08:15 08:30 09:10 Temperature Pulse Rate 117 H 118 H Pulse Rate [ Anterior Bilateral Throughout] Pulse Rate [ Apical] Respiratory 18 18 Rate Respiratory Rate [Anterior Bilateral Throughout] Blood Pressure 113/53 105/54 O2 Sat by Pulse 97 97 Oximetry O2 Sat by Pulse 98 Oximetry [ Assessment] 03/04/17 03/04/17 03/04/17 09:13 09:18 09:23 Temperature Pulse Rate 115 H Pulse Rate [ 115 H 117 H Anterior Bilateral Throughout] Pulse Rate [ Apical] Respiratory Rate Respiratory 18 18 Rate [Anterior Bilateral Throughout] Blood Pressure 103/59 O2 Sat by Pulse 98 Oximetry O2 Sat by Pulse Oximetry [ Assessment] 03/04/17 03/04/17 10:00 11:30 Temperature 99.5 F Pulse Rate Pulse Rate [ Anterior Bilateral Throughout] Pulse Rate [ Apical] Respiratory Rate Respiratory Rate [Anterior Bilateral Throughout] Blood Pressure O2 Sat by Pulse 99 Oximetry O2 Sat by Pulse Oximetry [ Assessment] Constitutional: appears uncomfortable, other (not tracking) Eyes: non-icteric, other (tracheostomy tube in midline of neck) ENT: oropharynx moist, oropharyngeal exudate pre, other (midline tracheostomy tube) Neck: supple, no lymphadenopathy, no JVD, other (no thyromegaly) Effort: mildly labored Ascultation: Bilateral: rhonchi (and referred upper airway sounds) Percussion: Bilateral: not dull Cardiovascular: regular rate and rhythm, other (no rubs / murmurs) Gastrointestinal: hypoactive bowel sounds, soft, non-tender, non-distended, other (RLQ & LUQ stomas with colostomy bags) Integumentary: decubitus ulcer (sacral; stage 4 s/p surgical debridement), other (no rash; no cellulitis; poor turgor) Extremities: no cyanosis, pulses normal, no ischemia or petechiae, edema (1+ bilaterally) Neurologic: pupils equal and round, unable to assess, other (encephalopathic) Psychiatric: other (unable to assess) CBC and BMP: 02/24/17 10:05 03/05/17 06:15 ABG, PT/INR, D-dimer: ABG POC ABG pH 7.518 (7.35-7.45) H 03/03/17 20:17 ABG pH 7.450 pH Units (7.350-7.450) 12/05/16 Unknown POC ABG pCO2 28.8 (35-45) L 03/03/17 20:17 ABG pCO2 29.6 mm Hg 12/05/16 Unknown POC ABG pO2 61 (80-105) L 03/03/17 20:17 ABG pO2 75.2 mm Hg (80.0-90.0) L 12/05/16 Unknown POC ABG HCO3 23.4 03/03/17 20:17 POC ABG Total CO2 24 03/03/17 20:17 POC ABG O2 Sat 94 03/03/17 20:17 ABG O2 Saturation 96.8 % (95.0-99.0) 12/05/16 Unknown PT/INR, D-dimer PT 15.4 Sec. (12.2-14.9) H 01/13/17 15:50 INR 1.16 (0.87-1.13) H 01/13/17 15:50 Abnormal lab findings: Abnormal Labs 09/03/16 09/03/16 09/03/16 00:03 00:10 00:10 WBC 13.9 H RBC 5.95 H Hgb Hct 44.0 H MCV 74 L MCH 22 L MCHC RDW 17.5 H Plt Count Lymph % (Auto) [place] % (Auto) Lymph # [place] # Baso # Seg Neutrophils % Seg Neuts % (Manual) Lymphocytes % (Manual) 54.0 H Monocytes % (Manual) Eosinophils % (Manual) Basophils % (Manual) Nucleated RBC % Seg Neutrophils # Seg Neutrophils # Man Lymphocytes # (Manual) 7.5 H Monocytes # (Manual) Eosinophils # (Manual) Basophils # (Manual) PT INR Fibrinogen dRVVT Confirm Interp Factor V Activity POC ABG pH POC ABG pCO2 POC ABG pO2 ABG pO2 ABG HCO3 ABG Base Excess ABG Hemoglobin Oxyhemoglobin Sodium Potassium 2.8 L* Chloride Carbon Dioxide 21 L BUN Creatinine 1.7 H Glucose 159 H POC Glucose 177 H Lactic Acid Calcium Ionized Calcium Phosphorus Magnesium Direct Bilirubin AST ALT Alkaline Phosphatase Lactate Dehydrogenase Troponin T C-Reactive Protein Total Protein Albumin Prealbumin Triglycerides Cholesterol LDL Cholesterol Direct HDL Cholesterol 25-OH Vitamin D Total PTH Intact Urine pH Urine WBC (Auto) Urine Creatinine Urine Total Protein Fluid Total Protein Vancomycin Trough Rheumatoid Factor Complement C4 Miscellaneous Test Crossmatch 09/03/16 09/03/16 09/03/16 12:12 15:07 16:20 WBC RBC Hgb Hct MCV MCH MCHC RDW Plt Count Lymph % (Auto) [place] % (Auto) Lymph # [place] # Baso # Seg Neutrophils % Seg Neuts % (Manual) Lymphocytes % (Manual) Monocytes % (Manual) Eosinophils % (Manual) Basophils % (Manual) Nucleated RBC % Seg Neutrophils # Seg Neutrophils # Man Lymphocytes # (Manual) Monocytes # (Manual) Eosinophils # (Manual) Basophils # (Manual) PT INR Fibrinogen dRVVT Confirm Interp Factor V Activity POC ABG pH 7.452 H POC ABG pCO2 POC ABG pO2 ABG pO2 ABG HCO3 ABG Base Excess ABG Hemoglobin Oxyhemoglobin Sodium Potassium Chloride Carbon Dioxide BUN Creatinine Glucose POC Glucose 178 H Lactic Acid Calcium Ionized Calcium Phosphorus 2.20 L Magnesium 1.60 L Direct Bilirubin AST ALT Alkaline Phosphatase Lactate Dehydrogenase Troponin T C-Reactive Protein Total Protein Albumin Prealbumin Triglycerides Cholesterol LDL Cholesterol Direct HDL Cholesterol 25-OH Vitamin D Total PTH Intact Urine pH Urine WBC (Auto) Urine Creatinine Urine Total Protein Fluid Total Protein Vancomycin Trough Rheumatoid Factor Complement C4 Miscellaneous Test Crossmatch 09/03/16 09/03/16 09/03/16 17:57 17:58 23:50 WBC RBC Hgb Hct MCV MCH MCHC RDW Plt Count Lymph % (Auto) [place] % (Auto) Lymph # [place] # Baso # Seg Neutrophils % Seg Neuts % (Manual) Lymphocytes % (Manual) Monocytes % (Manual) Eosinophils % (Manual) Basophils % (Manual) Nucleated RBC % Seg Neutrophils # Seg Neutrophils # Man Lymphocytes # (Manual) Monocytes # (Manual) Eosinophils # (Manual) Basophils # (Manual) PT INR Fibrinogen dRVVT Confirm Interp Factor V Activity POC ABG pH POC ABG pCO2 POC ABG pO2 ABG pO2 ABG HCO3 ABG Base Excess ABG Hemoglobin Oxyhemoglobin Sodium Potassium Chloride Carbon Dioxide BUN Creatinine Glucose POC Glucose 162 H 145 H Lactic Acid Calcium Ionized Calcium Phosphorus 2.30 L Magnesium Direct Bilirubin AST ALT Alkaline Phosphatase Lactate Dehydrogenase Troponin T C-Reactive Protein Total Protein Albumin Prealbumin Triglycerides Cholesterol LDL Cholesterol Direct HDL Cholesterol 25-OH Vitamin D Total PTH Intact Urine pH Urine WBC (Auto) Urine Creatinine Urine Total Protein Fluid Total Protein Vancomycin Trough Rheumatoid Factor Complement C4 Miscellaneous Test Crossmatch 09/04/16 09/04/16 09/04/16 03:31 03:31 05:42 WBC RBC Hgb 9.7 L D Hct MCV 72 L MCH 23 L MCHC RDW 17.5 H Plt Count Lymph % (Auto) 11.1 L [place] % (Auto) Lymph # [place] # Baso # Seg Neutrophils % 84.3 H Seg Neuts % (Manual) Lymphocytes % (Manual) Monocytes % (Manual) Eosinophils % (Manual) Basophils % (Manual) Nucleated RBC % Seg Neutrophils # 8.9 H Seg Neutrophils # Man Lymphocytes # (Manual) Monocytes # (Manual) Eosinophils # (Manual) Basophils # (Manual) PT INR Fibrinogen dRVVT Confirm Interp Factor V Activity POC ABG pH POC ABG pCO2 POC ABG pO2 ABG pO2 ABG HCO3 ABG Base Excess ABG Hemoglobin Oxyhemoglobin Sodium 135 L Potassium 2.9 L* Chloride 97.2 L Carbon Dioxide 19 L BUN Creatinine 1.7 H Glucose 170 H POC Glucose 152 H Lactic Acid Calcium Ionized Calcium Phosphorus Magnesium Direct Bilirubin AST ALT Alkaline Phosphatase Lactate Dehydrogenase Troponin T C-Reactive Protein Total Protein Albumin Prealbumin Triglycerides 160 H Cholesterol LDL Cholesterol Direct HDL Cholesterol 31 L 25-OH Vitamin D Total PTH Intact Urine pH Urine WBC (Auto) Urine Creatinine Urine Total Protein Fluid Total Protein Vancomycin Trough Rheumatoid Factor Complement C4 Miscellaneous Test Crossmatch 09/04/16 09/04/16 09/04/16 11:34 17:46 23:29 WBC RBC Hgb Hct MCV MCH MCHC RDW Plt Count Lymph % (Auto) [place] % (Auto) Lymph # [place] # Baso # Seg Neutrophils % Seg Neuts % (Manual) Lymphocytes % (Manual) Monocytes % (Manual) Eosinophils % (Manual) Basophils % (Manual) Nucleated RBC % Seg Neutrophils # Seg Neutrophils # Man Lymphocytes # (Manual) Monocytes # (Manual) Eosinophils # (Manual) Basophils # (Manual) PT INR Fibrinogen dRVVT Confirm Interp Factor V Activity POC ABG pH POC ABG pCO2 POC ABG pO2 ABG pO2 ABG HCO3 ABG Base Excess ABG Hemoglobin Oxyhemoglobin Sodium Potassium Chloride Carbon Dioxide BUN Creatinine Glucose POC Glucose 165 H 210 H 139 H Lactic Acid Calcium Ionized Calcium Phosphorus Magnesium Direct Bilirubin AST ALT Alkaline Phosphatase Lactate Dehydrogenase Troponin T C-Reactive Protein Total Protein Albumin Prealbumin Triglycerides Cholesterol LDL Cholesterol Direct HDL Cholesterol 25-OH Vitamin D Total PTH Intact Urine pH Urine WBC (Auto) Urine Creatinine Urine Total Protein Fluid Total Protein Vancomycin Trough Rheumatoid Factor Complement C4 Miscellaneous Test Crossmatch 09/05/16 09/05/16 09/05/16 04:05 04:05 05:38 WBC RBC Hgb Hct MCV 76 L D MCH 23 L MCHC RDW 17.8 H Plt Count Lymph % (Auto) [place] % (Auto) Lymph # [place] # Baso # Seg Neutrophils % Seg Neuts % (Manual) Lymphocytes % (Manual) Monocytes % (Manual) Eosinophils % (Manual) Basophils % (Manual) Nucleated RBC % Seg Neutrophils # Seg Neutrophils # Man Lymphocytes # (Manual) Monocytes # (Manual) Eosinophils # (Manual) Basophils # (Manual) PT INR Fibrinogen dRVVT Confirm Interp Factor V Activity POC ABG pH POC ABG pCO2 POC ABG pO2 ABG pO2 ABG HCO3 ABG Base Excess ABG Hemoglobin Oxyhemoglobin Sodium 134 L Potassium Chloride Carbon Dioxide 18 L BUN Creatinine 1.8 H Glucose 192 H POC Glucose 175 H Lactic Acid Calcium Ionized Calcium Phosphorus Magnesium Direct Bilirubin AST ALT Alkaline Phosphatase Lactate Dehydrogenase Troponin T C-Reactive Protein Total Protein Albumin Prealbumin Triglycerides Cholesterol LDL Cholesterol Direct HDL Cholesterol 25-OH Vitamin D Total PTH Intact Urine pH Urine WBC (Auto) Urine Creatinine Urine Total Protein Fluid Total Protein Vancomycin Trough Rheumatoid Factor Complement C4 Miscellaneous Test Crossmatch 09/05/16 09/05/16 09/05/16 11:38 17:48 23:22 WBC RBC Hgb Hct MCV MCH MCHC RDW Plt Count Lymph % (Auto) [place] % (Auto) Lymph # [place] # Baso # Seg Neutrophils % Seg Neuts % (Manual) Lymphocytes % (Manual) Monocytes % (Manual) Eosinophils % (Manual) Basophils % (Manual) Nucleated RBC % Seg Neutrophils # Seg Neutrophils # Man Lymphocytes # (Manual) Monocytes # (Manual) Eosinophils # (Manual) Basophils # (Manual) PT INR Fibrinogen dRVVT Confirm Interp Factor V Activity POC ABG pH POC ABG pCO2 POC ABG pO2 ABG pO2 ABG HCO3 ABG Base Excess ABG Hemoglobin Oxyhemoglobin Sodium Potassium Chloride Carbon Dioxide BUN Creatinine Glucose POC Glucose 164 H 186 H 195 H Lactic Acid Calcium Ionized Calcium Phosphorus Magnesium Direct Bilirubin AST ALT Alkaline Phosphatase Lactate Dehydrogenase Troponin T C-Reactive Protein Total Protein Albumin Prealbumin Triglycerides Cholesterol LDL Cholesterol Direct HDL Cholesterol 25-OH Vitamin D Total PTH Intact Urine pH Urine WBC (Auto) Urine Creatinine Urine Total Protein Fluid Total Protein Vancomycin Trough Rheumatoid Factor Complement C4 Miscellaneous Test Crossmatch 09/06/16 09/06/16 09/06/16 04:12 05:59 07:32 WBC RBC Hgb Hct MCV MCH MCHC RDW Plt Count Lymph % (Auto) [place] % (Auto) Lymph # [place] # Baso # Seg Neutrophils % Seg Neuts % (Manual) Lymphocytes % (Manual) Monocytes % (Manual) Eosinophils % (Manual) Basophils % (Manual) Nucleated RBC % Seg Neutrophils # Seg Neutrophils # Man Lymphocytes # (Manual) Monocytes # (Manual) Eosinophils # (Manual) Basophils # (Manual) PT INR Fibrinogen dRVVT Confirm Interp Factor V Activity POC ABG pH 7.514 H POC ABG pCO2 29.1 L POC ABG pO2 72 L ABG pO2 ABG HCO3 ABG Base Excess ABG Hemoglobin Oxyhemoglobin Sodium 133 L Potassium 3.4 L Chloride 94.9 L Carbon Dioxide 19 L BUN 30 H Creatinine 2.1 H Glucose 139 H POC Glucose 146 H Lactic Acid Calcium Ionized Calcium Phosphorus Magnesium Direct Bilirubin AST ALT Alkaline Phosphatase Lactate Dehydrogenase Troponin T C-Reactive Protein Total Protein Albumin Prealbumin Triglycerides Cholesterol LDL Cholesterol Direct HDL Cholesterol 25-OH Vitamin D Total PTH Intact Urine pH Urine WBC (Auto) Urine Creatinine Urine Total Protein Fluid Total Protein Vancomycin Trough Rheumatoid Factor Complement C4 Miscellaneous Test Crossmatch 09/06/16 09/06/16 09/06/16 11:57 17:58 19:02 WBC RBC Hgb Hct MCV MCH MCHC RDW Plt Count Lymph % (Auto) [place] % (Auto) Lymph # [place] # Baso # Seg Neutrophils % Seg Neuts % (Manual) Lymphocytes % (Manual) Monocytes % (Manual) Eosinophils % (Manual) Basophils % (Manual) Nucleated RBC % Seg Neutrophils # Seg Neutrophils # Man Lymphocytes # (Manual) Monocytes # (Manual) Eosinophils # (Manual) Basophils # (Manual) PT INR Fibrinogen dRVVT Confirm Interp Factor V Activity POC ABG pH 7.465 H POC ABG pCO2 32.0 L POC ABG pO2 ABG pO2 ABG HCO3 ABG Base Excess ABG Hemoglobin Oxyhemoglobin Sodium Potassium Chloride Carbon Dioxide BUN Creatinine Glucose POC Glucose 165 H 160 H Lactic Acid Calcium Ionized Calcium Phosphorus Magnesium Direct Bilirubin AST ALT Alkaline Phosphatase Lactate Dehydrogenase Troponin T C-Reactive Protein Total Protein Albumin Prealbumin Triglycerides Cholesterol LDL Cholesterol Direct HDL Cholesterol 25-OH Vitamin D Total PTH Intact Urine pH Urine WBC (Auto) Urine Creatinine Urine Total Protein Fluid Total Protein Vancomycin Trough Rheumatoid Factor Complement C4 Miscellaneous Test Crossmatch 09/06/16 09/07/16 09/07/16 23:45 02:47 02:47 WBC RBC Hgb Hct MCV MCH MCHC RDW Plt Count Lymph % (Auto) [place] % (Auto) Lymph # [place] # Baso # Seg Neutrophils % Seg Neuts % (Manual) Lymphocytes % (Manual) Monocytes % (Manual) Eosinophils % (Manual) Basophils % (Manual) Nucleated RBC % Seg Neutrophils # Seg Neutrophils # Man Lymphocytes # (Manual) Monocytes # (Manual) Eosinophils # (Manual) Basophils # (Manual) PT INR Fibrinogen dRVVT Confirm Interp Factor V Activity POC ABG pH POC ABG pCO2 POC ABG pO2 ABG pO2 ABG HCO3 ABG Base Excess ABG Hemoglobin Oxyhemoglobin Sodium Potassium Chloride Carbon Dioxide BUN Creatinine Glucose POC Glucose 204 H Lactic Acid Calcium Ionized Calcium Phosphorus Magnesium Direct Bilirubin AST ALT Alkaline Phosphatase Lactate Dehydrogenase Troponin T C-Reactive Protein Total Protein Albumin Prealbumin Triglycerides Cholesterol LDL Cholesterol Direct HDL Cholesterol 25-OH Vitamin D Total PTH Intact Urine pH Urine WBC (Auto) 68.0 H Urine Creatinine 106.1 H Urine Total Protein Fluid Total Protein Vancomycin Trough Rheumatoid Factor Complement C4 Miscellaneous Test Crossmatch 09/07/16 09/07/16 09/07/16 04:50 06:19 06:39 WBC RBC Hgb Hct MCV MCH MCHC RDW Plt Count Lymph % (Auto) [place] % (Auto) Lymph # [place] # Baso # Seg Neutrophils % Seg Neuts % (Manual) Lymphocytes % (Manual) Monocytes % (Manual) Eosinophils % (Manual) Basophils % (Manual) Nucleated RBC % Seg Neutrophils # Seg Neutrophils # Man Lymphocytes # (Manual) Monocytes # (Manual) Eosinophils # (Manual) Basophils # (Manual) PT INR Fibrinogen dRVVT Confirm Interp Factor V Activity POC ABG pH 7.457 H POC ABG pCO2 32.1 L POC ABG pO2 76 L ABG pO2 ABG HCO3 ABG Base Excess ABG Hemoglobin Oxyhemoglobin Sodium 132 L Potassium Chloride 94.7 L Carbon Dioxide BUN 53 H Creatinine 2.9 H Glucose 151 H POC Glucose 149 H Lactic Acid Calcium Ionized Calcium Phosphorus Magnesium Direct Bilirubin AST ALT Alkaline Phosphatase Lactate Dehydrogenase Troponin T C-Reactive Protein Total Protein Albumin Prealbumin Triglycerides Cholesterol LDL Cholesterol Direct HDL Cholesterol 25-OH Vitamin D Total PTH Intact Urine pH Urine WBC (Auto) Urine Creatinine Urine Total Protein Fluid Total Protein Vancomycin Trough Rheumatoid Factor Complement C4 Miscellaneous Test Crossmatch 09/07/16 09/07/1617 09:20 11:43 11:43 WBC 19.4 H RBC Hgb 8.3 L Hct 26.4 L D MCV 72 L D MCH 22 L MCHC RDW 17.9 H Plt Count Lymph % (Auto) 8.5 L [place] % (Auto) Lymph # [place] # 1.0 H Baso # Seg Neutrophils % 85.8 H Seg Neuts % (Manual) Lymphocytes % (Manual) Monocytes % (Manual) Eosinophils % (Manual) Basophils % (Manual) Nucleated RBC % Seg Neutrophils # 16.6 H Seg Neutrophils # Man Lymphocytes # (Manual) Monocytes # (Manual) Eosinophils # (Manual) Basophils # (Manual) PT INR Fibrinogen dRVVT Confirm Interp Factor V Activity POC ABG pH POC ABG pCO2 POC ABG pO2 ABG pO2 ABG HCO3 ABG Base Excess ABG Hemoglobin Oxyhemoglobin Sodium 134 L Potassium Chloride 97.2 L Carbon Dioxide 20 L BUN 58 H Creatinine 2.9 H Glucose 147 H POC Glucose Lactic Acid Calcium Ionized Calcium Phosphorus 2.40 L Magnesium 2.40 H Direct Bilirubin AST ALT Alkaline Phosphatase Lactate Dehydrogenase Troponin T C-Reactive Protein Total Protein 5.8 L Albumin 2.2 L Prealbumin Triglycerides Cholesterol LDL Cholesterol Direct HDL Cholesterol 25-OH Vitamin D Total PTH Intact Urine pH Urine WBC (Auto) Urine Creatinine Urine Total Protein Fluid Total Protein Vancomycin Trough Rheumatoid Factor Complement C4 58 H Miscellaneous Test Crossmatch 09/07/16 09/07/16 09/07/16 11:50 16:00 17:31 WBC RBC Hgb Hct MCV MCH MCHC RDW Plt Count Lymph % (Auto) [place] % (Auto) Lymph # [place] # Baso # Seg Neutrophils % Seg Neuts % (Manual) Lymphocytes % (Manual) Monocytes % (Manual) Eosinophils % (Manual) Basophils % (Manual) Nucleated RBC % Seg Neutrophils # Seg Neutrophils # Man Lymphocytes # (Manual) Monocytes # (Manual) Eosinophils # (Manual) Basophils # (Manual) PT INR Fibrinogen dRVVT Confirm Interp Factor V Activity POC ABG pH POC ABG pCO2 POC ABG pO2 158 H ABG pO2 ABG HCO3 ABG Base Excess ABG Hemoglobin Oxyhemoglobin Sodium Potassium Chloride Carbon Dioxide BUN Creatinine Glucose POC Glucose 175 H Lactic Acid Calcium Ionized Calcium Phosphorus Magnesium Direct Bilirubin AST ALT Alkaline Phosphatase Lactate Dehydrogenase Troponin T C-Reactive Protein Total Protein Albumin Prealbumin Triglycerides Cholesterol LDL Cholesterol Direct HDL Cholesterol 25-OH Vitamin D Total PTH Intact Urine pH Urine WBC (Auto) Urine Creatinine 66.3 H Urine Total Protein Fluid Total Protein Vancomycin Trough Rheumatoid Factor Complement C4 Miscellaneous Test Crossmatch 09/07/16 09/08/16 09/08/16 23:50 05:46 06:18 WBC 17.8 H RBC 3.58 L Hgb 8.1 L Hct 25.5 L MCV 71 L MCH 23 L MCHC RDW 18.4 H Plt Count Lymph % (Auto) [place] % (Auto) Lymph # [place] # Baso # Seg Neutrophils % Seg Neuts % (Manual) 92.0 H Lymphocytes % (Manual) 6.0 L Monocytes % (Manual) Eosinophils % (Manual) Basophils % (Manual) Nucleated RBC % Seg Neutrophils # Seg Neutrophils # Man 16.4 H Lymphocytes # (Manual) 1.1 L Monocytes # (Manual) Eosinophils # (Manual) Basophils # (Manual) PT INR Fibrinogen dRVVT Confirm Interp Factor V Activity POC ABG pH POC ABG pCO2 34.3 L POC ABG pO2 71 L ABG pO2 ABG HCO3 ABG Base Excess ABG Hemoglobin Oxyhemoglobin Sodium Potassium Chloride Carbon Dioxide BUN Creatinine Glucose POC Glucose 216 H Lactic Acid Calcium Ionized Calcium Phosphorus Magnesium Direct Bilirubin AST ALT Alkaline Phosphatase Lactate Dehydrogenase Troponin T C-Reactive Protein Total Protein Albumin Prealbumin Triglycerides Cholesterol LDL Cholesterol Direct HDL Cholesterol 25-OH Vitamin D Total PTH Intact Urine pH Urine WBC (Auto) Urine Creatinine Urine Total Protein Fluid Total Protein Vancomycin Trough Rheumatoid Factor Complement C4 Miscellaneous Test Crossmatch 09/08/16 09/08/16 09/08/16 06:18 06:51 10:55 WBC RBC Hgb Hct MCV MCH MCHC RDW Plt Count Lymph % (Auto) [place] % (Auto) Lymph # [place] # Baso # Seg Neutrophils % Seg Neuts % (Manual) Lymphocytes % (Manual) Monocytes % (Manual) Eosinophils % (Manual) Basophils % (Manual) Nucleated RBC % Seg Neutrophils # Seg Neutrophils # Man Lymphocytes # (Manual) Monocytes # (Manual) Eosinophils # (Manual) Basophils # (Manual) PT INR Fibrinogen dRVVT Confirm Interp Factor V Activity POC ABG pH POC ABG pCO2 POC ABG pO2 ABG pO2 ABG HCO3 ABG Base Excess ABG Hemoglobin Oxyhemoglobin Sodium 133 L Potassium Chloride 96.9 L Carbon Dioxide 20 L BUN 63 H Creatinine 2.7 H Glucose 195 H POC Glucose 204 H 169 H Lactic Acid Calcium Ionized Calcium Phosphorus Magnesium Direct Bilirubin AST ALT Alkaline Phosphatase Lactate Dehydrogenase Troponin T C-Reactive Protein Total Protein Albumin Prealbumin Triglycerides Cholesterol LDL Cholesterol Direct HDL Cholesterol 25-OH Vitamin D Total PTH Intact Urine pH Urine WBC (Auto) Urine Creatinine Urine Total Protein Fluid Total Protein Vancomycin Trough Rheumatoid Factor Complement C4 Miscellaneous Test Crossmatch 09/08/16 09/08/16 09/08/16 11:48 11:48 11:48 WBC RBC Hgb Hct MCV MCH MCHC RDW Plt Count Lymph % (Auto) [place] % (Auto) Lymph # [place] # Baso # Seg Neutrophils % Seg Neuts % (Manual) Lymphocytes % (Manual) Monocytes % (Manual) Eosinophils % (Manual) Basophils % (Manual) Nucleated RBC % Seg Neutrophils # Seg Neutrophils # Man Lymphocytes # (Manual) Monocytes # (Manual) Eosinophils # (Manual) Basophils # (Manual) PT INR Fibrinogen 750 H dRVVT Confirm Interp Factor V Activity POC ABG pH POC ABG pCO2 POC ABG pO2 ABG pO2 ABG HCO3 ABG Base Excess ABG Hemoglobin Oxyhemoglobin Sodium Potassium Chloride Carbon Dioxide BUN Creatinine Glucose POC Glucose Lactic Acid Calcium Ionized Calcium Phosphorus Magnesium Direct Bilirubin AST ALT Alkaline Phosphatase Lactate Dehydrogenase Troponin T C-Reactive Protein 15.70 H Total Protein Albumin Prealbumin Triglycerides Cholesterol LDL Cholesterol Direct HDL Cholesterol 25-OH Vitamin D Total PTH Intact Urine pH Urine WBC (Auto) Urine Creatinine Urine Total Protein Fluid Total Protein Vancomycin Trough Rheumatoid Factor 24 H Complement C4 Miscellaneous Test Crossmatch 09/08/16 09/08/16 09/09/16 15:35 18:25 00:24 WBC RBC Hgb Hct MCV MCH MCHC RDW Plt Count Lymph % (Auto) [place] % (Auto) Lymph # [place] # Baso # Seg Neutrophils % Seg Neuts % (Manual) Lymphocytes % (Manual) Monocytes % (Manual) Eosinophils % (Manual) Basophils % (Manual) Nucleated RBC % Seg Neutrophils # Seg Neutrophils # Man Lymphocytes # (Manual) Monocytes # (Manual) Eosinophils # (Manual) Basophils # (Manual) PT INR Fibrinogen dRVVT Confirm Interp Factor V Activity 182 H POC ABG pH POC ABG pCO2 POC ABG pO2 ABG pO2 ABG HCO3 ABG Base Excess ABG Hemoglobin Oxyhemoglobin Sodium Potassium Chloride Carbon Dioxide BUN Creatinine Glucose POC Glucose 184 H 216 H Lactic Acid Calcium Ionized Calcium Phosphorus Magnesium Direct Bilirubin AST ALT Alkaline Phosphatase Lactate Dehydrogenase Troponin T C-Reactive Protein Total Protein Albumin Prealbumin Triglycerides Cholesterol LDL Cholesterol Direct HDL Cholesterol 25-OH Vitamin D Total PTH Intact Urine pH Urine WBC (Auto) Urine Creatinine Urine Total Protein Fluid Total Protein Vancomycin Trough Rheumatoid Factor Complement C4 Miscellaneous Test Crossmatch 09/09/16 09/09/16 09/09/16 03:00 03:00 04:04 WBC 27.9 H RBC Hgb 8.7 L Hct 28.1 L MCV 72 L MCH 22 L MCHC RDW 18.4 H Plt Count 485 H Lymph % (Auto) [place] % (Auto) Lymph # [place] # Baso # Seg Neutrophils % Seg Neuts % (Manual) 77.0 H Lymphocytes % (Manual) 9.0 L Monocytes % (Manual) Eosinophils % (Manual) Basophils % (Manual) Nucleated RBC % Seg Neutrophils # Seg Neutrophils # Man 21.5 H Lymphocytes # (Manual) Monocytes # (Manual) 2.0 H Eosinophils # (Manual) Basophils # (Manual) PT INR Fibrinogen dRVVT Confirm Interp Factor V Activity POC ABG pH POC ABG pCO2 POC ABG pO2 121 H ABG pO2 ABG HCO3 ABG Base Excess ABG Hemoglobin Oxyhemoglobin Sodium 135 L Potassium Chloride 96.3 L Carbon Dioxide 21 L BUN 83 H Creatinine 3.0 H Glucose 135 H POC Glucose Lactic Acid Calcium Ionized Calcium Phosphorus Magnesium Direct Bilirubin AST ALT Alkaline Phosphatase Lactate Dehydrogenase Troponin T C-Reactive Protein Total Protein Albumin Prealbumin Triglycerides Cholesterol LDL Cholesterol Direct HDL Cholesterol 25-OH Vitamin D Total PTH Intact Urine pH Urine WBC (Auto) Urine Creatinine Urine Total Protein Fluid Total Protein Vancomycin Trough Rheumatoid Factor Complement C4 Miscellaneous Test Crossmatch 09/09/16 09/09/16 09/09/16 05:41 11:55 14:13 WBC RBC Hgb Hct MCV MCH MCHC RDW Plt Count Lymph % (Auto) [place] % (Auto) Lymph # [place] # Baso # Seg Neutrophils % Seg Neuts % (Manual) Lymphocytes % (Manual) Monocytes % (Manual) Eosinophils % (Manual) Basophils % (Manual) Nucleated RBC % Seg Neutrophils # Seg Neutrophils # Man Lymphocytes # (Manual) Monocytes # (Manual) Eosinophils # (Manual) Basophils # (Manual) PT INR Fibrinogen dRVVT Confirm Interp Factor V Activity POC ABG pH POC ABG pCO2 POC ABG pO2 ABG pO2 ABG HCO3 ABG Base Excess ABG Hemoglobin Oxyhemoglobin Sodium Potassium Chloride Carbon Dioxide BUN Creatinine Glucose POC Glucose 155 H 186 H Lactic Acid Calcium Ionized Calcium Phosphorus Magnesium Direct Bilirubin AST ALT Alkaline Phosphatase Lactate Dehydrogenase Troponin T C-Reactive Protein Total Protein Albumin Prealbumin Triglycerides Cholesterol LDL Cholesterol Direct HDL Cholesterol 25-OH Vitamin D Total PTH Intact Urine pH Urine WBC (Auto) 25.0 H Urine Creatinine Urine Total Protein Fluid Total Protein Vancomycin Trough Rheumatoid Factor Complement C4 Miscellaneous Test Crossmatch 09/09/16 09/09/16 09/10/16 17:33 23:13 05:09 WBC RBC Hgb Hct MCV MCH MCHC RDW Plt Count Lymph % (Auto) [place] % (Auto) Lymph # [place] # Baso # Seg Neutrophils % Seg Neuts % (Manual) Lymphocytes % (Manual) Monocytes % (Manual) Eosinophils % (Manual) Basophils % (Manual) Nucleated RBC % Seg Neutrophils # Seg Neutrophils # Man Lymphocytes # (Manual) Monocytes # (Manual) Eosinophils # (Manual) Basophils # (Manual) PT INR Fibrinogen dRVVT Confirm Interp Factor V Activity POC ABG pH POC ABG pCO2 POC ABG pO2 74 L ABG pO2 ABG HCO3 ABG Base Excess ABG Hemoglobin Oxyhemoglobin Sodium Potassium Chloride Carbon Dioxide BUN Creatinine Glucose POC Glucose 211 H 215 H Lactic Acid Calcium Ionized Calcium Phosphorus Magnesium Direct Bilirubin AST ALT Alkaline Phosphatase Lactate Dehydrogenase Troponin T C-Reactive Protein Total Protein Albumin Prealbumin Triglycerides Cholesterol LDL Cholesterol Direct HDL Cholesterol 25-OH Vitamin D Total PTH Intact Urine pH Urine WBC (Auto) Urine Creatinine Urine Total Protein Fluid Total Protein Vancomycin Trough Rheumatoid Factor Complement C4 Miscellaneous Test Crossmatch 09/10/16 09/10/16 09/10/16 05:17 05:17 11:31 WBC 15.8 H RBC 3.25 L Hgb 7.3 L Hct 22.9 L MCV 71 L MCH 23 L MCHC RDW 18.4 H Plt Count Lymph % (Auto) [place] % (Auto) Lymph # [place] # Baso # Seg Neutrophils % Seg Neuts % (Manual) 91.0 H Lymphocytes % (Manual) 4.0 L Monocytes % (Manual) Eosinophils % (Manual) Basophils % (Manual) Nucleated RBC % Seg Neutrophils # Seg Neutrophils # Man 14.4 H Lymphocytes # (Manual) 0.6 L Monocytes # (Manual) Eosinophils # (Manual) Basophils # (Manual) PT INR Fibrinogen dRVVT Confirm Interp Factor V Activity POC ABG pH POC ABG pCO2 POC ABG pO2 ABG pO2 ABG HCO3 ABG Base Excess ABG Hemoglobin Oxyhemoglobin Sodium Potassium Chloride Carbon Dioxide 21 L BUN 93 H Creatinine 2.9 H Glucose 146 H POC Glucose 188 H Lactic Acid Calcium 8.1 L Ionized Calcium Phosphorus Magnesium Direct Bilirubin AST ALT Alkaline Phosphatase Lactate Dehydrogenase Troponin T C-Reactive Protein Total Protein Albumin Prealbumin Triglycerides Cholesterol LDL Cholesterol Direct HDL Cholesterol 25-OH Vitamin D Total PTH Intact Urine pH Urine WBC (Auto) Urine Creatinine Urine Total Protein Fluid Total Protein Vancomycin Trough Rheumatoid Factor Complement C4 Miscellaneous Test Crossmatch 09/10/16 09/10/16 09/10/16 13:17 17:20 23:32 WBC RBC Hgb Hct MCV MCH MCHC RDW Plt Count Lymph % (Auto) [place] % (Auto) Lymph # [place] # Baso # Seg Neutrophils % Seg Neuts % (Manual) Lymphocytes % (Manual) Monocytes % (Manual) Eosinophils % (Manual) Basophils % (Manual) Nucleated RBC % Seg Neutrophils # Seg Neutrophils # Man Lymphocytes # (Manual) Monocytes # (Manual) Eosinophils # (Manual) Basophils # (Manual) PT INR Fibrinogen dRVVT Confirm Interp Factor V Activity POC ABG pH POC ABG pCO2 POC ABG pO2 ABG pO2 ABG HCO3 ABG Base Excess ABG Hemoglobin Oxyhemoglobin Sodium Potassium Chloride Carbon Dioxide BUN Creatinine Glucose POC Glucose 199 H 186 H Lactic Acid Calcium Ionized Calcium Phosphorus Magnesium Direct Bilirubin AST ALT Alkaline Phosphatase Lactate Dehydrogenase Troponin T C-Reactive Protein Total Protein Albumin Prealbumin Triglycerides Cholesterol LDL Cholesterol Direct HDL Cholesterol 25-OH Vitamin D Total PTH Intact Urine pH Urine WBC (Auto) Urine Creatinine Urine Total Protein Fluid Total Protein Vancomycin Trough Rheumatoid Factor Complement C4 Miscellaneous Test Crossmatch See Detail 09/11/16 09/11/16 09/11/16 05:10 05:10 05:17 WBC 28.4 H RBC Hgb 9.2 L Hct 29.3 L D MCV 73 L MCH 23 L MCHC RDW 18.9 H Plt Count 452 H Lymph % (Auto) [place] % (Auto) Lymph # [place] # Baso # Seg Neutrophils % Seg Neuts % (Manual) 89.5 H Lymphocytes % (Manual) 2.0 L Monocytes % (Manual) Eosinophils % (Manual) Basophils % (Manual) Nucleated RBC % Seg Neutrophils # Seg Neutrophils # Man 25.4 H Lymphocytes # (Manual) 0.6 L Monocytes # (Manual) 1.3 H Eosinophils # (Manual) Basophils # (Manual) PT INR Fibrinogen dRVVT Confirm Interp Factor V Activity POC ABG pH POC ABG pCO2 POC ABG pO2 ABG pO2 ABG HCO3 ABG Base Excess ABG Hemoglobin Oxyhemoglobin Sodium 136 L Potassium Chloride Carbon Dioxide 18 L BUN 107 H Creatinine 2.6 H Glucose 187 H POC Glucose 230 H Lactic Acid Calcium 8.3 L Ionized Calcium Phosphorus Magnesium Direct Bilirubin AST ALT Alkaline Phosphatase Lactate Dehydrogenase Troponin T C-Reactive Protein Total Protein Albumin Prealbumin Triglycerides Cholesterol LDL Cholesterol Direct HDL Cholesterol 25-OH Vitamin D Total PTH Intact Urine pH Urine WBC (Auto) Urine Creatinine Urine Total Protein Fluid Total Protein Vancomycin Trough Rheumatoid Factor Complement C4 Miscellaneous Test Crossmatch 09/11/16 09/11/16 09/11/16 05:55 12:02 17:32 WBC RBC Hgb Hct MCV MCH MCHC RDW Plt Count Lymph % (Auto) [place] % (Auto) Lymph # [place] # Baso # Seg Neutrophils % Seg Neuts % (Manual) Lymphocytes % (Manual) Monocytes % (Manual) Eosinophils % (Manual) Basophils % (Manual) Nucleated RBC % Seg Neutrophils # Seg Neutrophils # Man Lymphocytes # (Manual) Monocytes # (Manual) Eosinophils # (Manual) Basophils # (Manual) PT INR Fibrinogen dRVVT Confirm Interp Factor V Activity POC ABG pH POC ABG pCO2 33.8 L POC ABG pO2 ABG pO2 ABG HCO3 ABG Base Excess ABG Hemoglobin Oxyhemoglobin Sodium Potassium Chloride Carbon Dioxide BUN Creatinine Glucose POC Glucose 191 H 239 H Lactic Acid Calcium Ionized Calcium Phosphorus Magnesium Direct Bilirubin AST ALT Alkaline Phosphatase Lactate Dehydrogenase Troponin T C-Reactive Protein Total Protein Albumin Prealbumin Triglycerides Cholesterol LDL Cholesterol Direct HDL Cholesterol 25-OH Vitamin D Total PTH Intact Urine pH Urine WBC (Auto) Urine Creatinine Urine Total Protein Fluid Total Protein Vancomycin Trough Rheumatoid Factor Complement C4 Miscellaneous Test Crossmatch 09/11/16 09/12/16 09/12/16 23:52 05:09 05:32 WBC RBC Hgb Hct MCV MCH MCHC RDW Plt Count Lymph % (Auto) [place] % (Auto) Lymph # [place] # Baso # Seg Neutrophils % Seg Neuts % (Manual) Lymphocytes % (Manual) Monocytes % (Manual) Eosinophils % (Manual) Basophils % (Manual) Nucleated RBC % Seg Neutrophils # Seg Neutrophils # Man Lymphocytes # (Manual) Monocytes # (Manual) Eosinophils # (Manual) Basophils # (Manual) PT INR Fibrinogen dRVVT Confirm Interp Factor V Activity POC ABG pH POC ABG pCO2 34.6 L POC ABG pO2 ABG pO2 ABG HCO3 ABG Base Excess ABG Hemoglobin Oxyhemoglobin Sodium Potassium Chloride Carbon Dioxide BUN Creatinine Glucose POC Glucose 265 H 184 H Lactic Acid Calcium Ionized Calcium Phosphorus Magnesium Direct Bilirubin AST ALT Alkaline Phosphatase Lactate Dehydrogenase Troponin T C-Reactive Protein Total Protein Albumin Prealbumin Triglycerides Cholesterol LDL Cholesterol Direct HDL Cholesterol 25-OH Vitamin D Total PTH Intact Urine pH Urine WBC (Auto) Urine Creatinine Urine Total Protein Fluid Total Protein Vancomycin Trough Rheumatoid Factor Complement C4 Miscellaneous Test Crossmatch 09/12/16 09/12/16 09/12/16 06:45 06:45 07:22 WBC 31.7 H RBC 3.54 L Hgb 8.3 L Hct 25.9 L MCV 73 L MCH 23 L MCHC RDW 18.9 H Plt Count Lymph % (Auto) [place] % (Auto) Lymph # [place] # Baso # Seg Neutrophils % Seg Neuts % (Manual) 88.5 H Lymphocytes % (Manual) 4.5 L Monocytes % (Manual) Eosinophils % (Manual) Basophils % (Manual) Nucleated RBC % Seg Neutrophils # Seg Neutrophils # Man 28.1 H Lymphocytes # (Manual) Monocytes # (Manual) 1.0 H Eosinophils # (Manual) Basophils # (Manual) PT INR Fibrinogen dRVVT Confirm Interp Factor V Activity POC ABG pH POC ABG pCO2 POC ABG pO2 ABG pO2 ABG HCO3 ABG Base Excess ABG Hemoglobin Oxyhemoglobin Sodium Potassium Chloride Carbon Dioxide 20 L BUN 115 H Creatinine 2.7 H Glucose 165 H POC Glucose Lactic Acid Calcium 8.0 L Ionized Calcium Phosphorus Magnesium Direct Bilirubin AST ALT Alkaline Phosphatase Lactate Dehydrogenase Troponin T C-Reactive Protein Total Protein Albumin Prealbumin Triglycerides 217 H Cholesterol LDL Cholesterol Direct HDL Cholesterol 25-OH Vitamin D Total PTH Intact Urine pH Urine WBC (Auto) Urine Creatinine Urine Total Protein Fluid Total Protein Vancomycin Trough Rheumatoid Factor Complement C4 Miscellaneous Test Crossmatch 09/12/16 09/12/16 09/12/16 07:22 09:59 12:21 WBC RBC Hgb Hct MCV MCH MCHC RDW Plt Count Lymph % (Auto) [place] % (Auto) Lymph # [place] # Baso # Seg Neutrophils % Seg Neuts % (Manual) Lymphocytes % (Manual) Monocytes % (Manual) Eosinophils % (Manual) Basophils % (Manual) Nucleated RBC % Seg Neutrophils # Seg Neutrophils # Man Lymphocytes # (Manual) Monocytes # (Manual) Eosinophils # (Manual) Basophils # (Manual) PT INR Fibrinogen dRVVT Confirm Interp Positive H Factor V Activity POC ABG pH POC ABG pCO2 POC ABG pO2 ABG pO2 ABG HCO3 ABG Base Excess ABG Hemoglobin Oxyhemoglobin Sodium Potassium Chloride Carbon Dioxide BUN Creatinine Glucose POC Glucose 224 H Lactic Acid Calcium Ionized Calcium Phosphorus Magnesium Direct Bilirubin AST ALT Alkaline Phosphatase Lactate Dehydrogenase Troponin T C-Reactive Protein 1.70 H Total Protein Albumin Prealbumin Triglycerides Cholesterol LDL Cholesterol Direct HDL Cholesterol 25-OH Vitamin D Total PTH Intact Urine pH Urine WBC (Auto) Urine Creatinine Urine Total Protein Fluid Total Protein Vancomycin Trough Rheumatoid Factor Complement C4 Miscellaneous Test Crossmatch 09/12/16 09/12/16 09/13/16 16:51 23:28 04:00 WBC 45.0 H* RBC Hgb 9.4 L Hct MCV 75 L MCH 23 L MCHC RDW 19.0 H Plt Count 470 H Lymph % (Auto) [place] % (Auto) Lymph # [place] # Baso # Seg Neutrophils % Seg Neuts % (Manual) 89.0 H Lymphocytes % (Manual) 5.0 L Monocytes % (Manual) Eosinophils % (Manual) Basophils % (Manual) Nucleated RBC % Seg Neutrophils # Seg Neutrophils # Man 40.1 H Lymphocytes # (Manual) Monocytes # (Manual) Eosinophils # (Manual) Basophils # (Manual) PT INR Fibrinogen dRVVT Confirm Interp Factor V Activity POC ABG pH POC ABG pCO2 POC ABG pO2 ABG pO2 ABG HCO3 ABG Base Excess ABG Hemoglobin Oxyhemoglobin Sodium Potassium Chloride Carbon Dioxide BUN Creatinine Glucose POC Glucose 169 H 150 H Lactic Acid Calcium Ionized Calcium Phosphorus Magnesium Direct Bilirubin AST ALT Alkaline Phosphatase Lactate Dehydrogenase Troponin T C-Reactive Protein Total Protein Albumin Prealbumin Triglycerides Cholesterol LDL Cholesterol Direct HDL Cholesterol 25-OH Vitamin D Total PTH Intact Urine pH Urine WBC (Auto) Urine Creatinine Urine Total Protein Fluid Total Protein Vancomycin Trough Rheumatoid Factor Complement C4 Miscellaneous Test Crossmatch 09/13/16 09/13/16 09/13/16 04:00 11:26 17:31 WBC RBC Hgb Hct MCV MCH MCHC RDW Plt Count Lymph % (Auto) [place] % (Auto) Lymph # [place] # Baso # Seg Neutrophils % Seg Neuts % (Manual) Lymphocytes % (Manual) Monocytes % (Manual) Eosinophils % (Manual) Basophils % (Manual) Nucleated RBC % Seg Neutrophils # Seg Neutrophils # Man Lymphocytes # (Manual) Monocytes # (Manual) Eosinophils # (Manual) Basophils # (Manual) PT INR Fibrinogen dRVVT Confirm Interp Factor V Activity POC ABG pH POC ABG pCO2 POC ABG pO2 ABG pO2 ABG HCO3 ABG Base Excess ABG Hemoglobin Oxyhemoglobin Sodium Potassium Chloride Carbon Dioxide 20 L BUN 116 H Creatinine 3.0 H Glucose 172 H POC Glucose 140 H 183 H Lactic Acid Calcium Ionized Calcium Phosphorus Magnesium Direct Bilirubin AST ALT Alkaline Phosphatase Lactate Dehydrogenase Troponin T C-Reactive Protein Total Protein 6.2 L Albumin 2.9 L Prealbumin Triglycerides Cholesterol LDL Cholesterol Direct HDL Cholesterol 25-OH Vitamin D Total PTH Intact Urine pH Urine WBC (Auto) Urine Creatinine Urine Total Protein Fluid Total Protein Vancomycin Trough Rheumatoid Factor Complement C4 Miscellaneous Test Crossmatch 09/13/16 09/14/16 09/14/16 23:23 04:06 04:07 WBC 29.4 H RBC Hgb 8.9 L Hct 27.3 L MCV 75 L MCH 24 L MCHC RDW 19.1 H Plt Count Lymph % (Auto) [place] % (Auto) Lymph # [place] # Baso # Seg Neutrophils % Seg Neuts % (Manual) 84.0 H Lymphocytes % (Manual) 6.0 L Monocytes % (Manual) 9.0 H Eosinophils % (Manual) Basophils % (Manual) Nucleated RBC % Seg Neutrophils # Seg Neutrophils # Man 24.7 H Lymphocytes # (Manual) Monocytes # (Manual) 2.6 H Eosinophils # (Manual) Basophils # (Manual) PT INR Fibrinogen dRVVT Confirm Interp Factor V Activity POC ABG pH 7.342 L POC ABG pCO2 POC ABG pO2 116 H ABG pO2 ABG HCO3 ABG Base Excess ABG Hemoglobin Oxyhemoglobin Sodium Potassium Chloride Carbon Dioxide BUN Creatinine Glucose POC Glucose 154 H Lactic Acid Calcium Ionized Calcium Phosphorus Magnesium Direct Bilirubin AST ALT Alkaline Phosphatase Lactate Dehydrogenase Troponin T C-Reactive Protein Total Protein Albumin Prealbumin Triglycerides Cholesterol LDL Cholesterol Direct HDL Cholesterol 25-OH Vitamin D Total PTH Intact Urine pH Urine WBC (Auto) Urine Creatinine Urine Total Protein Fluid Total Protein Vancomycin Trough Rheumatoid Factor Complement C4 Miscellaneous Test Crossmatch 09/14/16 09/14/16 09/14/16 04:07 05:29 12:19 WBC RBC Hgb Hct MCV MCH MCHC RDW Plt Count Lymph % (Auto) [place] % (Auto) Lymph # [place] # Baso # Seg Neutrophils % Seg Neuts % (Manual) Lymphocytes % (Manual) Monocytes % (Manual) Eosinophils % (Manual) Basophils % (Manual) Nucleated RBC % Seg Neutrophils # Seg Neutrophils # Man Lymphocytes # (Manual) Monocytes # (Manual) Eosinophils # (Manual) Basophils # (Manual) PT INR Fibrinogen dRVVT Confirm Interp Factor V Activity POC ABG pH POC ABG pCO2 POC ABG pO2 ABG pO2 ABG HCO3 ABG Base Excess ABG Hemoglobin Oxyhemoglobin Sodium 136 L Potassium Chloride Carbon Dioxide 18 L BUN 121 H Creatinine 2.8 H Glucose 214 H POC Glucose 239 H 181 H Lactic Acid Calcium Ionized Calcium Phosphorus Magnesium Direct Bilirubin AST ALT Alkaline Phosphatase Lactate Dehydrogenase Troponin T C-Reactive Protein Total Protein Albumin Prealbumin Triglycerides Cholesterol LDL Cholesterol Direct HDL Cholesterol 25-OH Vitamin D Total PTH Intact Urine pH Urine WBC (Auto) Urine Creatinine Urine Total Protein Fluid Total Protein Vancomycin Trough Rheumatoid Factor Complement C4 Miscellaneous Test Crossmatch 09/14/16 09/14/16 09/15/16 18:12 23:37 05:00 WBC 26.1 H RBC 3.05 L Hgb 7.2 L Hct 22.9 L MCV 75 L MCH 24 L MCHC RDW 19.0 H Plt Count Lymph % (Auto) [place] % (Auto) Lymph # [place] # Baso # Seg Neutrophils % Seg Neuts % (Manual) Lymphocytes % (Manual) Monocytes % (Manual) Eosinophils % (Manual) Basophils % (Manual) Nucleated RBC % Seg Neutrophils # Seg Neutrophils # Man Lymphocytes # (Manual) Monocytes # (Manual) Eosinophils # (Manual) Basophils # (Manual) PT INR Fibrinogen dRVVT Confirm Interp Factor V Activity POC ABG pH POC ABG pCO2 POC ABG pO2 ABG pO2 ABG HCO3 ABG Base Excess ABG Hemoglobin Oxyhemoglobin Sodium Potassium Chloride Carbon Dioxide BUN Creatinine Glucose POC Glucose 266 H 154 H Lactic Acid Calcium Ionized Calcium Phosphorus Magnesium Direct Bilirubin AST ALT Alkaline Phosphatase Lactate Dehydrogenase Troponin T C-Reactive Protein Total Protein Albumin Prealbumin Triglycerides Cholesterol LDL Cholesterol Direct HDL Cholesterol 25-OH Vitamin D Total PTH Intact Urine pH Urine WBC (Auto) Urine Creatinine Urine Total Protein Fluid Total Protein Vancomycin Trough Rheumatoid Factor Complement C4 Miscellaneous Test Crossmatch 09/15/16 09/15/16 09/15/16 05:00 05:17 12:45 WBC RBC Hgb Hct MCV MCH MCHC RDW Plt Count Lymph % (Auto) [place] % (Auto) Lymph # [place] # Baso # Seg Neutrophils % Seg Neuts % (Manual) Lymphocytes % (Manual) Monocytes % (Manual) Eosinophils % (Manual) Basophils % (Manual) Nucleated RBC % Seg Neutrophils # Seg Neutrophils # Man Lymphocytes # (Manual) Monocytes # (Manual) Eosinophils # (Manual) Basophils # (Manual) PT INR Fibrinogen dRVVT Confirm Interp Factor V Activity POC ABG pH POC ABG pCO2 POC ABG pO2 ABG pO2 ABG HCO3 ABG Base Excess ABG Hemoglobin Oxyhemoglobin Sodium Potassium 5.2 H Chloride Carbon Dioxide 18 L BUN 139 H Creatinine 3.7 H Glucose 227 H POC Glucose 226 H 244 H Lactic Acid Calcium 8.3 L Ionized Calcium Phosphorus Magnesium Direct Bilirubin AST ALT Alkaline Phosphatase Lactate Dehydrogenase Troponin T C-Reactive Protein Total Protein Albumin Prealbumin Triglycerides Cholesterol LDL Cholesterol Direct HDL Cholesterol 25-OH Vitamin D Total PTH Intact Urine pH Urine WBC (Auto) Urine Creatinine Urine Total Protein Fluid Total Protein Vancomycin Trough Rheumatoid Factor Complement C4 Miscellaneous Test Crossmatch 09/15/16 09/15/16 09/15/16 14:32 17:33 23:35 WBC RBC Hgb Hct MCV MCH MCHC RDW Plt Count Lymph % (Auto) [place] % (Auto) Lymph # [place] # Baso # Seg Neutrophils % Seg Neuts % (Manual) Lymphocytes % (Manual) Monocytes % (Manual) Eosinophils % (Manual) Basophils % (Manual) Nucleated RBC % Seg Neutrophils # Seg Neutrophils # Man Lymphocytes # (Manual) Monocytes # (Manual) Eosinophils # (Manual) Basophils # (Manual) PT INR Fibrinogen dRVVT Confirm Interp Factor V Activity POC ABG pH POC ABG pCO2 27.7 L POC ABG pO2 120 H ABG pO2 ABG HCO3 ABG Base Excess ABG Hemoglobin Oxyhemoglobin Sodium Potassium Chloride Carbon Dioxide BUN Creatinine Glucose POC Glucose 232 H 167 H Lactic Acid Calcium Ionized Calcium Phosphorus Magnesium Direct Bilirubin AST ALT Alkaline Phosphatase Lactate Dehydrogenase Troponin T C-Reactive Protein Total Protein Albumin Prealbumin Triglycerides Cholesterol LDL Cholesterol Direct HDL Cholesterol 25-OH Vitamin D Total PTH Intact Urine pH Urine WBC (Auto) Urine Creatinine Urine Total Protein Fluid Total Protein Vancomycin Trough Rheumatoid Factor Complement C4 Miscellaneous Test Crossmatch 09/16/16 09/16/16 09/16/16 03:58 10:27 10:27 WBC 19.0 H RBC 2.77 L Hgb 6.5 L Hct 20.9 L MCV 76 L MCH 23 L MCHC RDW 19.3 H Plt Count Lymph % (Auto) 11.0 L [place] % (Auto) Lymph # [place] # 1.1 H Baso # Seg Neutrophils % 82.5 H Seg Neuts % (Manual) Lymphocytes % (Manual) Monocytes % (Manual) Eosinophils % (Manual) Basophils % (Manual) Nucleated RBC % Seg Neutrophils # 15.7 H Seg Neutrophils # Man Lymphocytes # (Manual) Monocytes # (Manual) Eosinophils # (Manual) Basophils # (Manual) PT INR Fibrinogen dRVVT Confirm Interp Factor V Activity POC ABG pH POC ABG pCO2 POC ABG pO2 ABG pO2 ABG HCO3 ABG Base Excess ABG Hemoglobin Oxyhemoglobin Sodium Potassium Chloride 109.3 H Carbon Dioxide 18 L BUN 139 H Creatinine 4.1 H Glucose 144 H POC Glucose 146 H Lactic Acid Calcium 8.1 L Ionized Calcium Phosphorus Magnesium Direct Bilirubin AST ALT Alkaline Phosphatase Lactate Dehydrogenase Troponin T C-Reactive Protein Total Protein Albumin Prealbumin Triglycerides Cholesterol LDL Cholesterol Direct HDL Cholesterol 25-OH Vitamin D Total PTH Intact Urine pH Urine WBC (Auto) Urine Creatinine Urine Total Protein Fluid Total Protein Vancomycin Trough Rheumatoid Factor Complement C4 Miscellaneous Test Crossmatch 09/16/16 09/16/16 09/16/16 12:04 12:10 13:55 WBC RBC Hgb Hct MCV MCH MCHC RDW Plt Count Lymph % (Auto) [place] % (Auto) Lymph # [place] # Baso # Seg Neutrophils % Seg Neuts % (Manual) Lymphocytes % (Manual) Monocytes % (Manual) Eosinophils % (Manual) Basophils % (Manual) Nucleated RBC % Seg Neutrophils # Seg Neutrophils # Man Lymphocytes # (Manual) Monocytes # (Manual) Eosinophils # (Manual) Basophils # (Manual) PT INR Fibrinogen dRVVT Confirm Interp Factor V Activity POC ABG pH POC ABG pCO2 32.9 L POC ABG pO2 ABG pO2 ABG HCO3 ABG Base Excess ABG Hemoglobin Oxyhemoglobin Sodium Potassium Chloride Carbon Dioxide BUN Creatinine Glucose POC Glucose 185 H Lactic Acid Calcium Ionized Calcium Phosphorus Magnesium Direct Bilirubin AST ALT Alkaline Phosphatase Lactate Dehydrogenase Troponin T C-Reactive Protein Total Protein Albumin Prealbumin Triglycerides Cholesterol LDL Cholesterol Direct HDL Cholesterol 25-OH Vitamin D Total PTH Intact Urine pH Urine WBC (Auto) Urine Creatinine Urine Total Protein Fluid Total Protein Vancomycin Trough Rheumatoid Factor Complement C4 Miscellaneous Test Crossmatch See Detail 09/16/16 09/16/16 09/16/16 17:55 19:19 23:48 WBC RBC Hgb Hct MCV MCH MCHC RDW Plt Count Lymph % (Auto) [place] % (Auto) Lymph # [place] # Baso # Seg Neutrophils % Seg Neuts % (Manual) Lymphocytes % (Manual) Monocytes % (Manual) Eosinophils % (Manual) Basophils % (Manual) Nucleated RBC % Seg Neutrophils # Seg Neutrophils # Man Lymphocytes # (Manual) Monocytes # (Manual) Eosinophils # (Manual) Basophils # (Manual) PT INR Fibrinogen dRVVT Confirm Interp Factor V Activity POC ABG pH POC ABG pCO2 POC ABG pO2 ABG pO2 ABG HCO3 ABG Base Excess ABG Hemoglobin Oxyhemoglobin Sodium Potassium Chloride Carbon Dioxide BUN Creatinine Glucose POC Glucose 222 H 107 H Lactic Acid Calcium Ionized Calcium Phosphorus Magnesium Direct Bilirubin AST ALT Alkaline Phosphatase Lactate Dehydrogenase Troponin T C-Reactive Protein Total Protein Albumin Prealbumin Triglycerides Cholesterol LDL Cholesterol Direct HDL Cholesterol 25-OH Vitamin D Total PTH Intact Urine pH Urine WBC (Auto) Urine Creatinine 47.4 H Urine Total Protein 16 H Fluid Total Protein Vancomycin Trough Rheumatoid Factor Complement C4 Miscellaneous Test Crossmatch 09/17/16 09/17/16 09/17/16 03:45 03:45 04:55 WBC 19.6 H RBC 3.41 L Hgb 8.5 L Hct 26.7 L MCV 78 L MCH 25 L MCHC RDW 19.9 H Plt Count Lymph % (Auto) 9.3 L [place] % (Auto) Lymph # [place] # 1.2 H Baso # Seg Neutrophils % 83.9 H Seg Neuts % (Manual) Lymphocytes % (Manual) Monocytes % (Manual) Eosinophils % (Manual) Basophils % (Manual) Nucleated RBC % Seg Neutrophils # 16.4 H Seg Neutrophils # Man Lymphocytes # (Manual) Monocytes # (Manual) Eosinophils # (Manual) Basophils # (Manual) PT INR Fibrinogen dRVVT Confirm Interp Factor V Activity POC ABG pH POC ABG pCO2 POC ABG pO2 ABG pO2 ABG HCO3 ABG Base Excess ABG Hemoglobin Oxyhemoglobin Sodium 146 H Potassium 5.1 H Chloride 110.9 H Carbon Dioxide 16 L BUN 146 H Creatinine 4.0 H Glucose 108 H POC Glucose 133 H Lactic Acid Calcium Ionized Calcium Phosphorus Magnesium 3.00 H Direct Bilirubin AST ALT Alkaline Phosphatase Lactate Dehydrogenase Troponin T C-Reactive Protein Total Protein Albumin Prealbumin Triglycerides Cholesterol LDL Cholesterol Direct HDL Cholesterol 25-OH Vitamin D Total PTH Intact Urine pH Urine WBC (Auto) Urine Creatinine Urine Total Protein Fluid Total Protein Vancomycin Trough Rheumatoid Factor Complement C4 Miscellaneous Test Crossmatch 09/17/16 09/17/16 09/17/16 11:15 17:33 23:47 WBC RBC Hgb Hct MCV MCH MCHC RDW Plt Count Lymph % (Auto) [place] % (Auto) Lymph # [place] # Baso # Seg Neutrophils % Seg Neuts % (Manual) Lymphocytes % (Manual) Monocytes % (Manual) Eosinophils % (Manual) Basophils % (Manual) Nucleated RBC % Seg Neutrophils # Seg Neutrophils # Man Lymphocytes # (Manual) Monocytes # (Manual) Eosinophils # (Manual) Basophils # (Manual) PT INR Fibrinogen dRVVT Confirm Interp Factor V Activity POC ABG pH POC ABG pCO2 POC ABG pO2 ABG pO2 ABG HCO3 ABG Base Excess ABG Hemoglobin Oxyhemoglobin Sodium Potassium Chloride Carbon Dioxide BUN Creatinine Glucose POC Glucose 176 H 246 H 148 H Lactic Acid Calcium Ionized Calcium Phosphorus Magnesium Direct Bilirubin AST ALT Alkaline Phosphatase Lactate Dehydrogenase Troponin T C-Reactive Protein Total Protein Albumin Prealbumin Triglycerides Cholesterol LDL Cholesterol Direct HDL Cholesterol 25-OH Vitamin D Total PTH Intact Urine pH Urine WBC (Auto) Urine Creatinine Urine Total Protein Fluid Total Protein Vancomycin Trough Rheumatoid Factor Complement C4 Miscellaneous Test Crossmatch 09/18/16 09/18/16 09/18/16 05:33 08:31 08:31 WBC 18.0 H RBC 3.17 L Hgb 9.0 L Hct 25.7 L MCV MCH MCHC 35 H RDW 20.4 H Plt Count Lymph % (Auto) [place] % (Auto) Lymph # [place] # Baso # Seg Neutrophils % Seg Neuts % (Manual) Lymphocytes % (Manual) Monocytes % (Manual) Eosinophils % (Manual) Basophils % (Manual) Nucleated RBC % Seg Neutrophils # Seg Neutrophils # Man Lymphocytes # (Manual) Monocytes # (Manual) Eosinophils # (Manual) Basophils # (Manual) PT INR Fibrinogen dRVVT Confirm Interp Factor V Activity POC ABG pH POC ABG pCO2 POC ABG pO2 ABG pO2 ABG HCO3 ABG Base Excess ABG Hemoglobin Oxyhemoglobin Sodium Potassium Chloride Carbon Dioxide 15 L BUN 124 H Creatinine 3.8 H Glucose POC Glucose 120 H Lactic Acid Calcium 8.1 L Ionized Calcium Phosphorus Magnesium Direct Bilirubin AST ALT Alkaline Phosphatase Lactate Dehydrogenase Troponin T C-Reactive Protein Total Protein Albumin Prealbumin Triglycerides Cholesterol LDL Cholesterol Direct HDL Cholesterol 25-OH Vitamin D Total PTH Intact Urine pH Urine WBC (Auto) Urine Creatinine Urine Total Protein Fluid Total Protein Vancomycin Trough Rheumatoid Factor Complement C4 Miscellaneous Test Crossmatch 09/18/16 09/18/16 09/18/16 12:03 15:34 17:50 WBC RBC Hgb Hct MCV MCH MCHC RDW Plt Count Lymph % (Auto) [place] % (Auto) Lymph # [place] # Baso # Seg Neutrophils % Seg Neuts % (Manual) Lymphocytes % (Manual) Monocytes % (Manual) Eosinophils % (Manual) Basophils % (Manual) Nucleated RBC % Seg Neutrophils # Seg Neutrophils # Man Lymphocytes # (Manual) Monocytes # (Manual) Eosinophils # (Manual) Basophils # (Manual) PT INR Fibrinogen dRVVT Confirm Interp Factor V Activity POC ABG pH POC ABG pCO2 25.7 L POC ABG pO2 66 L ABG pO2 ABG HCO3 ABG Base Excess ABG Hemoglobin Oxyhemoglobin Sodium Potassium Chloride Carbon Dioxide BUN Creatinine Glucose POC Glucose 156 H 220 H Lactic Acid Calcium Ionized Calcium Phosphorus Magnesium Direct Bilirubin AST ALT Alkaline Phosphatase Lactate Dehydrogenase Troponin T C-Reactive Protein Total Protein Albumin Prealbumin Triglycerides Cholesterol LDL Cholesterol Direct HDL Cholesterol 25-OH Vitamin D Total PTH Intact Urine pH Urine WBC (Auto) Urine Creatinine Urine Total Protein Fluid Total Protein Vancomycin Trough Rheumatoid Factor Complement C4 Miscellaneous Test Crossmatch 09/19/16 09/19/16 09/19/16 06:21 09:50 09:50 WBC 17.1 H RBC 3.49 L Hgb 9.0 L Hct 28.1 L MCV MCH 26 L MCHC RDW 20.8 H Plt Count Lymph % (Auto) 11.5 L [place] % (Auto) 7.5 H Lymph # [place] # 1.3 H Baso # Seg Neutrophils % 79.8 H Seg Neuts % (Manual) Lymphocytes % (Manual) Monocytes % (Manual) Eosinophils % (Manual) Basophils % (Manual) Nucleated RBC % Seg Neutrophils # 13.7 H Seg Neutrophils # Man Lymphocytes # (Manual) Monocytes # (Manual) Eosinophils # (Manual) Basophils # (Manual) PT INR Fibrinogen dRVVT Confirm Interp Factor V Activity POC ABG pH POC ABG pCO2 POC ABG pO2 ABG pO2 ABG HCO3 ABG Base Excess ABG Hemoglobin Oxyhemoglobin Sodium Potassium Chloride 108.6 H Carbon Dioxide 15 L BUN 125 H Creatinine 4.1 H Glucose 124 H POC Glucose 119 H Lactic Acid Calcium Ionized Calcium Phosphorus Magnesium Direct Bilirubin AST ALT Alkaline Phosphatase Lactate Dehydrogenase Troponin T C-Reactive Protein Total Protein Albumin Prealbumin Triglycerides Cholesterol LDL Cholesterol Direct HDL Cholesterol 25-OH Vitamin D Total PTH Intact Urine pH Urine WBC (Auto) Urine Creatinine Urine Total Protein Fluid Total Protein Vancomycin Trough Rheumatoid Factor Complement C4 Miscellaneous Test Crossmatch 09/19/16 09/19/16 09/19/16 11:25 17:53 23:36 WBC RBC Hgb Hct MCV MCH MCHC RDW Plt Count Lymph % (Auto) [place] % (Auto) Lymph # [place] # Baso # Seg Neutrophils % Seg Neuts % (Manual) Lymphocytes % (Manual) Monocytes % (Manual) Eosinophils % (Manual) Basophils % (Manual) Nucleated RBC % Seg Neutrophils # Seg Neutrophils # Man Lymphocytes # (Manual) Monocytes # (Manual) Eosinophils # (Manual) Basophils # (Manual) PT INR Fibrinogen dRVVT Confirm Interp Factor V Activity POC ABG pH POC ABG pCO2 POC ABG pO2 ABG pO2 ABG HCO3 ABG Base Excess ABG Hemoglobin Oxyhemoglobin Sodium Potassium Chloride Carbon Dioxide BUN Creatinine Glucose POC Glucose 160 H 245 H 121 H Lactic Acid Calcium Ionized Calcium Phosphorus Magnesium Direct Bilirubin AST ALT Alkaline Phosphatase Lactate Dehydrogenase Troponin T C-Reactive Protein Total Protein Albumin Prealbumin Triglycerides Cholesterol LDL Cholesterol Direct HDL Cholesterol 25-OH Vitamin D Total PTH Intact Urine pH Urine WBC (Auto) Urine Creatinine Urine Total Protein Fluid Total Protein Vancomycin Trough Rheumatoid Factor Complement C4 Miscellaneous Test Crossmatch 09/20/16 09/20/16 09/20/16 04:10 04:10 04:10 WBC 17.0 H RBC 3.21 L Hgb 8.2 L Hct 25.5 L MCV MCH 26 L MCHC RDW 20.9 H Plt Count Lymph % (Auto) [place] % (Auto) Lymph # [place] # Baso # Seg Neutrophils % Seg Neuts % (Manual) Lymphocytes % (Manual) Monocytes % (Manual) Eosinophils % (Manual) Basophils % (Manual) Nucleated RBC % Seg Neutrophils # Seg Neutrophils # Man Lymphocytes # (Manual) Monocytes # (Manual) Eosinophils # (Manual) Basophils # (Manual) PT INR Fibrinogen dRVVT Confirm Interp Factor V Activity POC ABG pH POC ABG pCO2 POC ABG pO2 ABG pO2 ABG HCO3 ABG Base Excess ABG Hemoglobin Oxyhemoglobin Sodium Potassium Chloride 111.0 H Carbon Dioxide 16 L BUN 129 H Creatinine 3.7 H Glucose 115 H POC Glucose Lactic Acid Calcium 8.2 L Ionized Calcium Phosphorus Magnesium Direct Bilirubin AST ALT Alkaline Phosphatase Lactate Dehydrogenase Troponin T C-Reactive Protein Total Protein Albumin Prealbumin Triglycerides 243 H Cholesterol LDL Cholesterol Direct HDL Cholesterol 25-OH Vitamin D Total PTH Intact Urine pH Urine WBC (Auto) Urine Creatinine Urine Total Protein Fluid Total Protein Vancomycin Trough Rheumatoid Factor Complement C4 Miscellaneous Test Crossmatch 09/20/16 09/20/16 09/20/16 05:40 11:52 16:50 WBC RBC Hgb Hct MCV MCH MCHC RDW Plt Count Lymph % (Auto) [place] % (Auto) Lymph # [place] # Baso # Seg Neutrophils % Seg Neuts % (Manual) Lymphocytes % (Manual) Monocytes % (Manual) Eosinophils % (Manual) Basophils % (Manual) Nucleated RBC % Seg Neutrophils # Seg Neutrophils # Man Lymphocytes # (Manual) Monocytes # (Manual) Eosinophils # (Manual) Basophils # (Manual) PT INR Fibrinogen dRVVT Confirm Interp Factor V Activity POC ABG pH POC ABG pCO2 POC ABG pO2 ABG pO2 ABG HCO3 ABG Base Excess ABG Hemoglobin Oxyhemoglobin Sodium Potassium Chloride Carbon Dioxide BUN Creatinine Glucose POC Glucose 131 H 183 H 236 H Lactic Acid Calcium Ionized Calcium Phosphorus Magnesium Direct Bilirubin AST ALT Alkaline Phosphatase Lactate Dehydrogenase Troponin T C-Reactive Protein Total Protein Albumin Prealbumin Triglycerides Cholesterol LDL Cholesterol Direct HDL Cholesterol 25-OH Vitamin D Total PTH Intact Urine pH Urine WBC (Auto) Urine Creatinine Urine Total Protein Fluid Total Protein Vancomycin Trough Rheumatoid Factor Complement C4 Miscellaneous Test Crossmatch 09/20/16 09/21/16 09/21/16 23:51 03:30 04:44 WBC RBC Hgb Hct MCV MCH MCHC RDW Plt Count Lymph % (Auto) [place] % (Auto) Lymph # [place] # Baso # Seg Neutrophils % Seg Neuts % (Manual) Lymphocytes % (Manual) Monocytes % (Manual) Eosinophils % (Manual) Basophils % (Manual) Nucleated RBC % Seg Neutrophils # Seg Neutrophils # Man Lymphocytes # (Manual) Monocytes # (Manual) Eosinophils # (Manual) Basophils # (Manual) PT INR Fibrinogen dRVVT Confirm Interp Factor V Activity POC ABG pH POC ABG pCO2 POC ABG pO2 ABG pO2 ABG HCO3 ABG Base Excess ABG Hemoglobin Oxyhemoglobin Sodium Potassium Chloride Carbon Dioxide BUN Creatinine Glucose POC Glucose 114 H 141 H Lactic Acid Calcium Ionized Calcium Phosphorus Magnesium 2.70 H Direct Bilirubin AST ALT Alkaline Phosphatase Lactate Dehydrogenase Troponin T C-Reactive Protein Total Protein Albumin Prealbumin Triglycerides Cholesterol LDL Cholesterol Direct HDL Cholesterol 25-OH Vitamin D Total PTH Intact Urine pH Urine WBC (Auto) Urine Creatinine Urine Total Protein Fluid Total Protein Vancomycin Trough Rheumatoid Factor Complement C4 Miscellaneous Test Crossmatch 09/21/16 09/21/16 09/21/16 07:45 07:45 10:01 WBC 13.8 H RBC 2.94 L Hgb 7.5 L Hct 23.5 L MCV MCH 26 L MCHC RDW 21.2 H Plt Count Lymph % (Auto) 6.9 L [place] % (Auto) 9.4 H Lymph # 0.9 L [place] # 1.3 H Baso # Seg Neutrophils % 83.2 H Seg Neuts % (Manual) Lymphocytes % (Manual) Monocytes % (Manual) Eosinophils % (Manual) Basophils % (Manual) Nucleated RBC % Seg Neutrophils # 11.5 H Seg Neutrophils # Man Lymphocytes # (Manual) Monocytes # (Manual) Eosinophils # (Manual) Basophils # (Manual) PT INR Fibrinogen dRVVT Confirm Interp Factor V Activity POC ABG pH 7.308 L POC ABG pCO2 31.9 L POC ABG pO2 148 H ABG pO2 ABG HCO3 ABG Base Excess ABG Hemoglobin Oxyhemoglobin Sodium 147 H Potassium Chloride 114.2 H Carbon Dioxide 15 L BUN 120 H Creatinine 3.9 H Glucose 156 H POC Glucose Lactic Acid Calcium 8.2 L Ionized Calcium Phosphorus Magnesium Direct Bilirubin AST ALT Alkaline Phosphatase Lactate Dehydrogenase Troponin T C-Reactive Protein Total Protein Albumin Prealbumin Triglycerides Cholesterol LDL Cholesterol Direct HDL Cholesterol 25-OH Vitamin D Total PTH Intact Urine pH Urine WBC (Auto) Urine Creatinine Urine Total Protein Fluid Total Protein Vancomycin Trough Rheumatoid Factor Complement C4 Miscellaneous Test Crossmatch 09/21/16 09/21/16 09/21/16 12:00 12:03 13:00 WBC RBC Hgb Hct MCV MCH MCHC RDW Plt Count Lymph % (Auto) [place] % (Auto) Lymph # [place] # Baso # Seg Neutrophils % Seg Neuts % (Manual) Lymphocytes % (Manual) Monocytes % (Manual) Eosinophils % (Manual) Basophils % (Manual) Nucleated RBC % Seg Neutrophils # Seg Neutrophils # Man Lymphocytes # (Manual) Monocytes # (Manual) Eosinophils # (Manual) Basophils # (Manual) PT INR Fibrinogen dRVVT Confirm Interp Factor V Activity POC ABG pH POC ABG pCO2 POC ABG pO2 ABG pO2 ABG HCO3 ABG Base Excess ABG Hemoglobin Oxyhemoglobin Sodium Potassium Chloride Carbon Dioxide BUN Creatinine Glucose POC Glucose 163 H Lactic Acid Calcium Ionized Calcium Phosphorus Magnesium Direct Bilirubin AST ALT Alkaline Phosphatase Lactate Dehydrogenase Troponin T C-Reactive Protein Total Protein Albumin Prealbumin Triglycerides Cholesterol LDL Cholesterol Direct HDL Cholesterol 25-OH Vitamin D Total PTH Intact Urine pH Urine WBC (Auto) Urine Creatinine 54.8 H Urine Total Protein Fluid Total Protein Vancomycin Trough 2.3 L Rheumatoid Factor Complement C4 Miscellaneous Test Crossmatch 09/21/16 09/21/16 09/22/16 16:51 23:17 06:27 WBC RBC Hgb Hct MCV MCH MCHC RDW Plt Count Lymph % (Auto) [place] % (Auto) Lymph # [place] # Baso # Seg Neutrophils % Seg Neuts % (Manual) Lymphocytes % (Manual) Monocytes % (Manual) Eosinophils % (Manual) Basophils % (Manual) Nucleated RBC % Seg Neutrophils # Seg Neutrophils # Man Lymphocytes # (Manual) Monocytes # (Manual) Eosinophils # (Manual) Basophils # (Manual) PT INR Fibrinogen dRVVT Confirm Interp Factor V Activity POC ABG pH POC ABG pCO2 POC ABG pO2 ABG pO2 ABG HCO3 ABG Base Excess ABG Hemoglobin Oxyhemoglobin Sodium Potassium Chloride Carbon Dioxide BUN Creatinine Glucose POC Glucose 206 H 114 H 115 H Lactic Acid Calcium Ionized Calcium Phosphorus Magnesium Direct Bilirubin AST ALT Alkaline Phosphatase Lactate Dehydrogenase Troponin T C-Reactive Protein Total Protein Albumin Prealbumin Triglycerides Cholesterol LDL Cholesterol Direct HDL Cholesterol 25-OH Vitamin D Total PTH Intact Urine pH Urine WBC (Auto) Urine Creatinine Urine Total Protein Fluid Total Protein Vancomycin Trough Rheumatoid Factor Complement C4 Miscellaneous Test Crossmatch 09/22/16 09/22/16 09/22/16 07:50 07:50 12:00 WBC 17.8 H RBC 3.04 L Hgb 8.0 L Hct 24.7 L MCV MCH 26 L MCHC RDW 21.6 H Plt Count Lymph % (Auto) [place] % (Auto) Lymph # [place] # Baso # Seg Neutrophils % Seg Neuts % (Manual) Lymphocytes % (Manual) Monocytes % (Manual) Eosinophils % (Manual) Basophils % (Manual) Nucleated RBC % Seg Neutrophils # Seg Neutrophils # Man Lymphocytes # (Manual) Monocytes # (Manual) Eosinophils # (Manual) Basophils # (Manual) PT INR Fibrinogen dRVVT Confirm Interp Factor V Activity POC ABG pH POC ABG pCO2 POC ABG pO2 ABG pO2 ABG HCO3 ABG Base Excess ABG Hemoglobin Oxyhemoglobin Sodium 150 H Potassium Chloride 118.2 H Carbon Dioxide 14 L BUN 111 H Creatinine 3.7 H Glucose 157 H POC Glucose 183 H Lactic Acid Calcium Ionized Calcium Phosphorus Magnesium Direct Bilirubin AST ALT Alkaline Phosphatase Lactate Dehydrogenase Troponin T C-Reactive Protein Total Protein Albumin Prealbumin Triglycerides Cholesterol LDL Cholesterol Direct HDL Cholesterol 25-OH Vitamin D Total PTH Intact Urine pH Urine WBC (Auto) Urine Creatinine Urine Total Protein Fluid Total Protein Vancomycin Trough Rheumatoid Factor Complement C4 Miscellaneous Test Crossmatch 09/22/16 09/22/16 09/23/16 17:29 23:10 05:00 WBC 19.2 H RBC 3.13 L Hgb 8.0 L Hct 25.2 L MCV MCH 26 L MCHC RDW 22.1 H Plt Count Lymph % (Auto) [place] % (Auto) Lymph # [place] # Baso # Seg Neutrophils % Seg Neuts % (Manual) 92.0 H Lymphocytes % (Manual) 3.0 L Monocytes % (Manual) Eosinophils % (Manual) Basophils % (Manual) Nucleated RBC % Seg Neutrophils # Seg Neutrophils # Man 17.7 H Lymphocytes # (Manual) 0.6 L Monocytes # (Manual) Eosinophils # (Manual) Basophils # (Manual) PT INR Fibrinogen dRVVT Confirm Interp Factor V Activity POC ABG pH POC ABG pCO2 POC ABG pO2 ABG pO2 ABG HCO3 ABG Base Excess ABG Hemoglobin Oxyhemoglobin Sodium Potassium Chloride Carbon Dioxide BUN Creatinine Glucose POC Glucose 197 H 169 H Lactic Acid Calcium Ionized Calcium Phosphorus Magnesium Direct Bilirubin AST ALT Alkaline Phosphatase Lactate Dehydrogenase Troponin T C-Reactive Protein Total Protein Albumin Prealbumin Triglycerides Cholesterol LDL Cholesterol Direct HDL Cholesterol 25-OH Vitamin D Total PTH Intact Urine pH Urine WBC (Auto) Urine Creatinine Urine Total Protein Fluid Total Protein Vancomycin Trough Rheumatoid Factor Complement C4 Miscellaneous Test Crossmatch 09/23/16 09/23/16 09/23/16 05:00 05:00 05:10 WBC RBC Hgb Hct MCV MCH MCHC RDW Plt Count Lymph % (Auto) [place] % (Auto) Lymph # [place] # Baso # Seg Neutrophils % Seg Neuts % (Manual) Lymphocytes % (Manual) Monocytes % (Manual) Eosinophils % (Manual) Basophils % (Manual) Nucleated RBC % Seg Neutrophils # Seg Neutrophils # Man Lymphocytes # (Manual) Monocytes # (Manual) Eosinophils # (Manual) Basophils # (Manual) PT INR Fibrinogen dRVVT Confirm Interp Factor V Activity POC ABG pH POC ABG pCO2 POC ABG pO2 ABG pO2 ABG HCO3 ABG Base Excess ABG Hemoglobin Oxyhemoglobin Sodium 147 H Potassium 3.2 L Chloride 115.7 H Carbon Dioxide 13 L BUN 111 H Creatinine 3.8 H Glucose 194 H POC Glucose 188 H Lactic Acid Calcium 7.3 L D Ionized Calcium Phosphorus Magnesium Direct Bilirubin AST ALT Alkaline Phosphatase Lactate Dehydrogenase Troponin T C-Reactive Protein 3.20 H Total Protein Albumin Prealbumin Triglycerides Cholesterol LDL Cholesterol Direct HDL Cholesterol 25-OH Vitamin D Total PTH Intact Urine pH Urine WBC (Auto) Urine Creatinine Urine Total Protein Fluid Total Protein Vancomycin Trough Rheumatoid Factor Complement C4 Miscellaneous Test Crossmatch 09/23/16 09/23/16 09/23/16 11:37 12:29 18:01 WBC RBC Hgb Hct MCV MCH MCHC RDW Plt Count Lymph % (Auto) [place] % (Auto) Lymph # [place] # Baso # Seg Neutrophils % Seg Neuts % (Manual) Lymphocytes % (Manual) Monocytes % (Manual) Eosinophils % (Manual) Basophils % (Manual) Nucleated RBC % Seg Neutrophils # Seg Neutrophils # Man Lymphocytes # (Manual) Monocytes # (Manual) Eosinophils # (Manual) Basophils # (Manual) PT INR Fibrinogen dRVVT Confirm Interp Factor V Activity POC ABG pH POC ABG pCO2 18.9 L POC ABG pO2 143 H ABG pO2 ABG HCO3 ABG Base Excess ABG Hemoglobin Oxyhemoglobin Sodium Potassium Chloride Carbon Dioxide BUN Creatinine Glucose POC Glucose 153 H 108 H Lactic Acid Calcium Ionized Calcium Phosphorus Magnesium Direct Bilirubin AST ALT Alkaline Phosphatase Lactate Dehydrogenase Troponin T C-Reactive Protein Total Protein Albumin Prealbumin Triglycerides Cholesterol LDL Cholesterol Direct HDL Cholesterol 25-OH Vitamin D Total PTH Intact Urine pH Urine WBC (Auto) Urine Creatinine Urine Total Protein Fluid Total Protein Vancomycin Trough Rheumatoid Factor Complement C4 Miscellaneous Test Crossmatch 09/23/16 09/23/16 09/24/16 21:19 23:43 05:16 WBC RBC Hgb Hct MCV MCH MCHC RDW Plt Count Lymph % (Auto) [place] % (Auto) Lymph # [place] # Baso # Seg Neutrophils % Seg Neuts % (Manual) Lymphocytes % (Manual) Monocytes % (Manual) Eosinophils % (Manual) Basophils % (Manual) Nucleated RBC % Seg Neutrophils # Seg Neutrophils # Man Lymphocytes # (Manual) Monocytes # (Manual) Eosinophils # (Manual) Basophils # (Manual) PT INR Fibrinogen dRVVT Confirm Interp Factor V Activity POC ABG pH POC ABG pCO2 17.3 L POC ABG pO2 112 H ABG pO2 ABG HCO3 ABG Base Excess ABG Hemoglobin Oxyhemoglobin Sodium Potassium Chloride Carbon Dioxide BUN Creatinine Glucose POC Glucose 143 H 164 H Lactic Acid Calcium Ionized Calcium Phosphorus Magnesium Direct Bilirubin AST ALT Alkaline Phosphatase Lactate Dehydrogenase Troponin T C-Reactive Protein Total Protein Albumin Prealbumin Triglycerides Cholesterol LDL Cholesterol Direct HDL Cholesterol 25-OH Vitamin D Total PTH Intact Urine pH Urine WBC (Auto) Urine Creatinine Urine Total Protein Fluid Total Protein Vancomycin Trough Rheumatoid Factor Complement C4 Miscellaneous Test Crossmatch 09/24/16 09/24/16 09/24/16 05:21 11:58 17:06 WBC RBC Hgb Hct MCV MCH MCHC RDW Plt Count Lymph % (Auto) [place] % (Auto) Lymph # [place] # Baso # Seg Neutrophils % Seg Neuts % (Manual) Lymphocytes % (Manual) Monocytes % (Manual) Eosinophils % (Manual) Basophils % (Manual) Nucleated RBC % Seg Neutrophils # Seg Neutrophils # Man Lymphocytes # (Manual) Monocytes # (Manual) Eosinophils # (Manual) Basophils # (Manual) PT INR Fibrinogen dRVVT Confirm Interp Factor V Activity POC ABG pH POC ABG pCO2 POC ABG pO2 ABG pO2 ABG HCO3 ABG Base Excess ABG Hemoglobin Oxyhemoglobin Sodium Potassium Chloride Carbon Dioxide 10 L BUN 103 H Creatinine 4.3 H Glucose 163 H POC Glucose 173 H 167 H Lactic Acid Calcium 6.5 L Ionized Calcium Phosphorus Magnesium Direct Bilirubin AST ALT Alkaline Phosphatase Lactate Dehydrogenase Troponin T C-Reactive Protein Total Protein Albumin Prealbumin Triglycerides Cholesterol LDL Cholesterol Direct HDL Cholesterol 25-OH Vitamin D Total PTH Intact Urine pH Urine WBC (Auto) Urine Creatinine Urine Total Protein Fluid Total Protein Vancomycin Trough Rheumatoid Factor Complement C4 Miscellaneous Test Crossmatch 09/24/16 09/24/16 09/24/16 20:15 21:02 23:48 WBC RBC Hgb Hct MCV MCH MCHC RDW Plt Count Lymph % (Auto) [place] % (Auto) Lymph # [place] # Baso # Seg Neutrophils % Seg Neuts % (Manual) Lymphocytes % (Manual) Monocytes % (Manual) Eosinophils % (Manual) Basophils % (Manual) Nucleated RBC % Seg Neutrophils # Seg Neutrophils # Man Lymphocytes # (Manual) Monocytes # (Manual) Eosinophils # (Manual) Basophils # (Manual) PT INR Fibrinogen dRVVT Confirm Interp Factor V Activity POC ABG pH 7.288 L POC ABG pCO2 30.2 L 21.5 L POC ABG pO2 32 L 39 L ABG pO2 ABG HCO3 ABG Base Excess ABG Hemoglobin Oxyhemoglobin Sodium Potassium Chloride Carbon Dioxide BUN Creatinine Glucose POC Glucose 109 H Lactic Acid Calcium Ionized Calcium Phosphorus Magnesium Direct Bilirubin AST ALT Alkaline Phosphatase Lactate Dehydrogenase Troponin T C-Reactive Protein Total Protein Albumin Prealbumin Triglycerides Cholesterol LDL Cholesterol Direct HDL Cholesterol 25-OH Vitamin D Total PTH Intact Urine pH Urine WBC (Auto) Urine Creatinine Urine Total Protein Fluid Total Protein Vancomycin Trough Rheumatoid Factor Complement C4 Miscellaneous Test Crossmatch 09/25/16 09/25/16 09/25/16 04:20 04:20 04:20 WBC RBC 2.58 L Hgb 7.0 L Hct 21.0 L MCV MCH 27 L MCHC RDW 23.8 H Plt Count Lymph % (Auto) [place] % (Auto) Lymph # [place] # Baso # Seg Neutrophils % Seg Neuts % (Manual) Lymphocytes % (Manual) 12.0 L Monocytes % (Manual) Eosinophils % (Manual) 7.0 H Basophils % (Manual) 2.0 H Nucleated RBC % Seg Neutrophils # Seg Neutrophils # Man Lymphocytes # (Manual) 0.9 L Monocytes # (Manual) Eosinophils # (Manual) 0.5 H Basophils # (Manual) PT INR Fibrinogen dRVVT Confirm Interp Factor V Activity POC ABG pH POC ABG pCO2 POC ABG pO2 ABG pO2 ABG HCO3 ABG Base Excess ABG Hemoglobin Oxyhemoglobin Sodium Potassium Chloride Carbon Dioxide 15 L BUN 72 H Creatinine 3.8 H Glucose POC Glucose Lactic Acid Calcium 6.0 L Ionized Calcium Phosphorus 4.60 H Magnesium 1.60 L Direct Bilirubin AST ALT Alkaline Phosphatase Lactate Dehydrogenase Troponin T C-Reactive Protein Total Protein Albumin Prealbumin Triglycerides Cholesterol LDL Cholesterol Direct HDL Cholesterol 25-OH Vitamin D Total PTH Intact Urine pH Urine WBC (Auto) Urine Creatinine Urine Total Protein Fluid Total Protein Vancomycin Trough Rheumatoid Factor Complement C4 Miscellaneous Test Crossmatch 09/25/16 09/25/16 09/25/16 04:57 08:02 10:30 WBC RBC Hgb Hct MCV MCH MCHC RDW Plt Count Lymph % (Auto) [place] % (Auto) Lymph # [place] # Baso # Seg Neutrophils % Seg Neuts % (Manual) Lymphocytes % (Manual) Monocytes % (Manual) Eosinophils % (Manual) Basophils % (Manual) Nucleated RBC % Seg Neutrophils # Seg Neutrophils # Man Lymphocytes # (Manual) Monocytes # (Manual) Eosinophils # (Manual) Basophils # (Manual) PT INR Fibrinogen dRVVT Confirm Interp Factor V Activity POC ABG pH POC ABG pCO2 24.7 L POC ABG pO2 152 H ABG pO2 ABG HCO3 ABG Base Excess ABG Hemoglobin Oxyhemoglobin Sodium Potassium Chloride Carbon Dioxide BUN Creatinine Glucose POC Glucose 113 H Lactic Acid Calcium Ionized Calcium Phosphorus Magnesium Direct Bilirubin AST ALT Alkaline Phosphatase Lactate Dehydrogenase Troponin T C-Reactive Protein Total Protein Albumin Prealbumin Triglycerides Cholesterol LDL Cholesterol Direct HDL Cholesterol 25-OH Vitamin D Total PTH Intact Urine pH Urine WBC (Auto) Urine Creatinine Urine Total Protein Fluid Total Protein Vancomycin Trough Rheumatoid Factor Complement C4 Miscellaneous Test Crossmatch See Detail 09/25/16 09/25/16 09/25/16 12:05 17:44 23:47 WBC RBC Hgb Hct MCV MCH MCHC RDW Plt Count Lymph % (Auto) [place] % (Auto) Lymph # [place] # Baso # Seg Neutrophils % Seg Neuts % (Manual) Lymphocytes % (Manual) Monocytes % (Manual) Eosinophils % (Manual) Basophils % (Manual) Nucleated RBC % Seg Neutrophils # Seg Neutrophils # Man Lymphocytes # (Manual) Monocytes # (Manual) Eosinophils # (Manual) Basophils # (Manual) PT INR Fibrinogen dRVVT Confirm Interp Factor V Activity POC ABG pH POC ABG pCO2 POC ABG pO2 ABG pO2 ABG HCO3 ABG Base Excess ABG Hemoglobin Oxyhemoglobin Sodium Potassium Chloride Carbon Dioxide BUN Creatinine Glucose POC Glucose 117 H 119 H 150 H Lactic Acid Calcium Ionized Calcium Phosphorus Magnesium Direct Bilirubin AST ALT Alkaline Phosphatase Lactate Dehydrogenase Troponin T C-Reactive Protein Total Protein Albumin Prealbumin Triglycerides Cholesterol LDL Cholesterol Direct HDL Cholesterol 25-OH Vitamin D Total PTH Intact Urine pH Urine WBC (Auto) Urine Creatinine Urine Total Protein Fluid Total Protein Vancomycin Trough Rheumatoid Factor Complement C4 Miscellaneous Test Crossmatch 09/26/16 09/26/16 09/26/16 04:25 04:25 04:25 WBC RBC 2.65 L Hgb 7.4 L Hct 21.6 L MCV MCH MCHC RDW 22.5 H Plt Count Lymph % (Auto) [place] % (Auto) Lymph # [place] # Baso # Seg Neutrophils % Seg Neuts % (Manual) Lymphocytes % (Manual) 6.0 L Monocytes % (Manual) Eosinophils % (Manual) 11.0 H Basophils % (Manual) Nucleated RBC % Seg Neutrophils # Seg Neutrophils # Man Lymphocytes # (Manual) 0.4 L Monocytes # (Manual) Eosinophils # (Manual) 0.6 H Basophils # (Manual) PT INR Fibrinogen dRVVT Confirm Interp Factor V Activity POC ABG pH POC ABG pCO2 POC ABG pO2 ABG pO2 ABG HCO3 ABG Base Excess ABG Hemoglobin Oxyhemoglobin Sodium Potassium Chloride 97.0 L Carbon Dioxide 19 L BUN 43 H Creatinine 2.6 H Glucose 130 H POC Glucose Lactic Acid 4.40 H* Calcium 6.7 L Ionized Calcium Phosphorus Magnesium Direct Bilirubin AST ALT Alkaline Phosphatase Lactate Dehydrogenase Troponin T C-Reactive Protein Total Protein Albumin Prealbumin Triglycerides Cholesterol LDL Cholesterol Direct HDL Cholesterol 25-OH Vitamin D Total PTH Intact Urine pH Urine WBC (Auto) Urine Creatinine Urine Total Protein Fluid Total Protein Vancomycin Trough Rheumatoid Factor Complement C4 Miscellaneous Test Crossmatch 09/26/16 09/26/16 09/26/16 05:20 11:44 12:12 WBC RBC Hgb Hct MCV MCH MCHC RDW Plt Count Lymph % (Auto) [place] % (Auto) Lymph # [place] # Baso # Seg Neutrophils % Seg Neuts % (Manual) Lymphocytes % (Manual) Monocytes % (Manual) Eosinophils % (Manual) Basophils % (Manual) Nucleated RBC % Seg Neutrophils # Seg Neutrophils # Man Lymphocytes # (Manual) Monocytes # (Manual) Eosinophils # (Manual) Basophils # (Manual) PT INR Fibrinogen dRVVT Confirm Interp Factor V Activity POC ABG pH POC ABG pCO2 27.0 L POC ABG pO2 69 L ABG pO2 ABG HCO3 ABG Base Excess ABG Hemoglobin Oxyhemoglobin Sodium Potassium Chloride Carbon Dioxide BUN Creatinine Glucose POC Glucose 121 H 128 H Lactic Acid Calcium Ionized Calcium Phosphorus Magnesium Direct Bilirubin AST ALT Alkaline Phosphatase Lactate Dehydrogenase Troponin T C-Reactive Protein Total Protein Albumin Prealbumin Triglycerides Cholesterol LDL Cholesterol Direct HDL Cholesterol 25-OH Vitamin D Total PTH Intact Urine pH Urine WBC (Auto) Urine Creatinine Urine Total Protein Fluid Total Protein Vancomycin Trough Rheumatoid Factor Complement C4 Miscellaneous Test Crossmatch 09/26/16 09/26/16 09/27/16 18:31 23:40 08:20 WBC RBC Hgb Hct MCV MCH MCHC RDW Plt Count Lymph % (Auto) [place] % (Auto) Lymph # [place] # Baso # Seg Neutrophils % Seg Neuts % (Manual) Lymphocytes % (Manual) Monocytes % (Manual) Eosinophils % (Manual) Basophils % (Manual) Nucleated RBC % Seg Neutrophils # Seg Neutrophils # Man Lymphocytes # (Manual) Monocytes # (Manual) Eosinophils # (Manual) Basophils # (Manual) PT INR Fibrinogen dRVVT Confirm Interp Factor V Activity POC ABG pH POC ABG pCO2 POC ABG pO2 ABG pO2 ABG HCO3 ABG Base Excess ABG Hemoglobin Oxyhemoglobin Sodium Potassium Chloride Carbon Dioxide BUN Creatinine Glucose POC Glucose 120 H 133 H Lactic Acid 4.10 H* Calcium Ionized Calcium Phosphorus Magnesium Direct Bilirubin AST ALT Alkaline Phosphatase Lactate Dehydrogenase Troponin T C-Reactive Protein Total Protein Albumin Prealbumin Triglycerides Cholesterol LDL Cholesterol Direct HDL Cholesterol 25-OH Vitamin D Total PTH Intact Urine pH Urine WBC (Auto) Urine Creatinine Urine Total Protein Fluid Total Protein Vancomycin Trough Rheumatoid Factor Complement C4 Miscellaneous Test Crossmatch 09/27/16 09/27/16 09/27/16 11:23 15:00 18:15 WBC RBC Hgb Hct MCV MCH MCHC RDW Plt Count Lymph % (Auto) [place] % (Auto) Lymph # [place] # Baso # Seg Neutrophils % Seg Neuts % (Manual) Lymphocytes % (Manual) Monocytes % (Manual) Eosinophils % (Manual) Basophils % (Manual) Nucleated RBC % Seg Neutrophils # Seg Neutrophils # Man Lymphocytes # (Manual) Monocytes # (Manual) Eosinophils # (Manual) Basophils # (Manual) PT INR Fibrinogen dRVVT Confirm Interp Factor V Activity POC ABG pH 7.459 H POC ABG pCO2 27.1 L POC ABG pO2 140 H ABG pO2 ABG HCO3 ABG Base Excess ABG Hemoglobin Oxyhemoglobin Sodium Potassium Chloride Carbon Dioxide BUN Creatinine Glucose POC Glucose 114 H 127 H Lactic Acid Calcium Ionized Calcium Phosphorus Magnesium Direct Bilirubin AST ALT Alkaline Phosphatase Lactate Dehydrogenase Troponin T C-Reactive Protein Total Protein Albumin Prealbumin Triglycerides Cholesterol LDL Cholesterol Direct HDL Cholesterol 25-OH Vitamin D Total PTH Intact Urine pH Urine WBC (Auto) Urine Creatinine Urine Total Protein Fluid Total Protein Vancomycin Trough Rheumatoid Factor Complement C4 Miscellaneous Test Crossmatch 09/27/16 09/27/16 09/28/16 Unknown Unknown 03:45 WBC RBC 2.49 L Hgb 6.8 L Hct 20.7 L MCV MCH 27 L MCHC RDW 22.1 H Plt Count Lymph % (Auto) [place] % (Auto) Lymph # [place] # Baso # Seg Neutrophils % Seg Neuts % (Manual) 32.0 L Lymphocytes % (Manual) 12.0 L Monocytes % (Manual) 11.0 H Eosinophils % (Manual) 10.0 H Basophils % (Manual) Nucleated RBC % Seg Neutrophils # Seg Neutrophils # Man Lymphocytes # (Manual) 1.0 L Monocytes # (Manual) 0.9 H Eosinophils # (Manual) 0.8 H Basophils # (Manual) PT INR Fibrinogen dRVVT Confirm Interp Factor V Activity POC ABG pH POC ABG pCO2 POC ABG pO2 ABG pO2 ABG HCO3 ABG Base Excess ABG Hemoglobin Oxyhemoglobin Sodium 135 L 135 L Potassium 3.5 L Chloride 93.6 L 94.4 L Carbon Dioxide 17 L 21 L BUN 45 H 28 H Creatinine 3.3 H 2.5 H Glucose 106 H POC Glucose Lactic Acid Calcium 7.3 L 7.1 L Ionized Calcium Phosphorus Magnesium Direct Bilirubin AST ALT Alkaline Phosphatase Lactate Dehydrogenase Troponin T C-Reactive Protein Total Protein Albumin Prealbumin Triglycerides Cholesterol LDL Cholesterol Direct HDL Cholesterol 25-OH Vitamin D Total PTH Intact Urine pH Urine WBC (Auto) Urine Creatinine Urine Total Protein Fluid Total Protein Vancomycin Trough Rheumatoid Factor Complement C4 Miscellaneous Test Crossmatch 09/28/16 09/28/16 09/28/16 03:45 07:25 11:58 WBC 13.3 H RBC 3.01 L Hgb 8.4 L Hct 25.0 L MCV MCH MCHC RDW 20.5 H Plt Count 128 L Lymph % (Auto) [place] % (Auto) Lymph # [place] # Baso # Seg Neutrophils % Seg Neuts % (Manual) Lymphocytes % (Manual) 7.0 L Monocytes % (Manual) Eosinophils % (Manual) 6.0 H Basophils % (Manual) Nucleated RBC % Seg Neutrophils # Seg Neutrophils # Man Lymphocytes # (Manual) 0.9 L Monocytes # (Manual) Eosinophils # (Manual) 0.8 H Basophils # (Manual) PT INR Fibrinogen dRVVT Confirm Interp Factor V Activity POC ABG pH POC ABG pCO2 POC ABG pO2 ABG pO2 ABG HCO3 ABG Base Excess ABG Hemoglobin Oxyhemoglobin Sodium Potassium Chloride Carbon Dioxide BUN Creatinine Glucose POC Glucose 121 H Lactic Acid 4.50 H* Calcium Ionized Calcium Phosphorus Magnesium Direct Bilirubin AST ALT Alkaline Phosphatase Lactate Dehydrogenase Troponin T C-Reactive Protein Total Protein Albumin Prealbumin Triglycerides Cholesterol LDL Cholesterol Direct HDL Cholesterol 25-OH Vitamin D Total PTH Intact Urine pH Urine WBC (Auto) Urine Creatinine Urine Total Protein Fluid Total Protein Vancomycin Trough Rheumatoid Factor Complement C4 Miscellaneous Test Crossmatch 09/29/16 09/29/16 09/29/16 06:45 06:45 06:45 WBC 14.9 H RBC 2.74 L Hgb 7.6 L Hct 23.2 L MCV MCH MCHC RDW 20.5 H Plt Count 81 L Lymph % (Auto) [place] % (Auto) Lymph # [place] # Baso # Seg Neutrophils % Seg Neuts % (Manual) 81.0 H Lymphocytes % (Manual) 4.0 L Monocytes % (Manual) Eosinophils % (Manual) Basophils % (Manual) Nucleated RBC % Seg Neutrophils # Seg Neutrophils # Man 12.1 H Lymphocytes # (Manual) 0.6 L Monocytes # (Manual) Eosinophils # (Manual) Basophils # (Manual) PT INR Fibrinogen dRVVT Confirm Interp Factor V Activity POC ABG pH POC ABG pCO2 POC ABG pO2 ABG pO2 ABG HCO3 ABG Base Excess ABG Hemoglobin Oxyhemoglobin Sodium 133 L Potassium 3.4 L Chloride 92.5 L Carbon Dioxide 21 L BUN 33 H Creatinine 3.0 H Glucose POC Glucose Lactic Acid Calcium 6.6 L Ionized Calcium Phosphorus Magnesium 1.40 L Direct Bilirubin 0.9 H AST ALT Alkaline Phosphatase Lactate Dehydrogenase Troponin T C-Reactive Protein Total Protein 4.3 L Albumin 1.3 L Prealbumin Triglycerides Cholesterol LDL Cholesterol Direct HDL Cholesterol 25-OH Vitamin D Total PTH Intact Urine pH Urine WBC (Auto) Urine Creatinine Urine Total Protein Fluid Total Protein Vancomycin Trough Rheumatoid Factor Complement C4 Miscellaneous Test Crossmatch 09/29/16 09/29/16 09/30/16 17:52 20:12 00:07 WBC RBC Hgb Hct MCV MCH MCHC RDW Plt Count Lymph % (Auto) [place] % (Auto) Lymph # [place] # Baso # Seg Neutrophils % Seg Neuts % (Manual) Lymphocytes % (Manual) Monocytes % (Manual) Eosinophils % (Manual) Basophils % (Manual) Nucleated RBC % Seg Neutrophils # Seg Neutrophils # Man Lymphocytes # (Manual) Monocytes # (Manual) Eosinophils # (Manual) Basophils # (Manual) PT INR Fibrinogen dRVVT Confirm Interp Factor V Activity POC ABG pH POC ABG pCO2 POC ABG pO2 ABG pO2 ABG HCO3 ABG Base Excess ABG Hemoglobin Oxyhemoglobin Sodium Potassium Chloride Carbon Dioxide BUN Creatinine Glucose POC Glucose 50 L 51 L Lactic Acid Calcium Ionized Calcium Phosphorus Magnesium Direct Bilirubin AST ALT Alkaline Phosphatase Lactate Dehydrogenase Troponin T 0.204 H* C-Reactive Protein Total Protein Albumin Prealbumin Triglycerides Cholesterol 31 L LDL Cholesterol Direct 4 L HDL Cholesterol 3 L 25-OH Vitamin D Total PTH Intact Urine pH Urine WBC (Auto) Urine Creatinine Urine Total Protein Fluid Total Protein Vancomycin Trough Rheumatoid Factor Complement C4 Miscellaneous Test Crossmatch 09/30/16 09/30/16 09/30/16 01:30 05:15 06:10 WBC RBC Hgb Hct MCV MCH MCHC RDW Plt Count Lymph % (Auto) [place] % (Auto) Lymph # [place] # Baso # Seg Neutrophils % Seg Neuts % (Manual) Lymphocytes % (Manual) Monocytes % (Manual) Eosinophils % (Manual) Basophils % (Manual) Nucleated RBC % Seg Neutrophils # Seg Neutrophils # Man Lymphocytes # (Manual) Monocytes # (Manual) Eosinophils # (Manual) Basophils # (Manual) PT INR Fibrinogen dRVVT Confirm Interp Factor V Activity POC ABG pH POC ABG pCO2 POC ABG pO2 ABG pO2 ABG HCO3 ABG Base Excess ABG Hemoglobin Oxyhemoglobin Sodium 133 L Potassium 3.2 L Chloride 93.2 L Carbon Dioxide 19 L BUN 36 H Creatinine 3.2 H Glucose 104 H POC Glucose 167 H 146 H Lactic Acid Calcium 6.4 L Ionized Calcium Phosphorus Magnesium 1.60 L Direct Bilirubin AST ALT Alkaline Phosphatase Lactate Dehydrogenase Troponin T C-Reactive Protein Total Protein Albumin Prealbumin Triglycerides Cholesterol LDL Cholesterol Direct HDL Cholesterol 25-OH Vitamin D Total PTH Intact Urine pH Urine WBC (Auto) Urine Creatinine Urine Total Protein Fluid Total Protein Vancomycin Trough Rheumatoid Factor Complement C4 Miscellaneous Test Crossmatch 09/30/16 09/30/16 09/30/16 11:26 13:39 18:38 WBC RBC Hgb Hct MCV MCH MCHC RDW Plt Count Lymph % (Auto) [place] % (Auto) Lymph # [place] # Baso # Seg Neutrophils % Seg Neuts % (Manual) Lymphocytes % (Manual) Monocytes % (Manual) Eosinophils % (Manual) Basophils % (Manual) Nucleated RBC % Seg Neutrophils # Seg Neutrophils # Man Lymphocytes # (Manual) Monocytes # (Manual) Eosinophils # (Manual) Basophils # (Manual) PT INR Fibrinogen dRVVT Confirm Interp Factor V Activity POC ABG pH 7.479 H POC ABG pCO2 29.8 L POC ABG pO2 117 H ABG pO2 ABG HCO3 ABG Base Excess ABG Hemoglobin Oxyhemoglobin Sodium Potassium Chloride Carbon Dioxide BUN Creatinine Glucose POC Glucose 140 H 122 H Lactic Acid Calcium Ionized Calcium Phosphorus Magnesium Direct Bilirubin AST ALT Alkaline Phosphatase Lactate Dehydrogenase Troponin T C-Reactive Protein Total Protein Albumin Prealbumin Triglycerides Cholesterol LDL Cholesterol Direct HDL Cholesterol 25-OH Vitamin D Total PTH Intact Urine pH Urine WBC (Auto) Urine Creatinine Urine Total Protein Fluid Total Protein Vancomycin Trough Rheumatoid Factor Complement C4 Miscellaneous Test Crossmatch 10/01/16 10/01/16 10/01/16 06:00 06:00 12:37 WBC 12.6 H RBC 2.75 L Hgb 7.3 L Hct 23.3 L MCV MCH 27 L MCHC RDW 20.6 H Plt Count 72 L Lymph % (Auto) [place] % (Auto) Lymph # [place] # Baso # Seg Neutrophils % Seg Neuts % (Manual) 31.0 L Lymphocytes % (Manual) 8.0 L Monocytes % (Manual) Eosinophils % (Manual) Basophils % (Manual) Nucleated RBC % 3.0 H Seg Neutrophils # Seg Neutrophils # Man Lymphocytes # (Manual) 1.0 L Monocytes # (Manual) Eosinophils # (Manual) Basophils # (Manual) PT INR Fibrinogen dRVVT Confirm Interp Factor V Activity POC ABG pH POC ABG pCO2 POC ABG pO2 ABG pO2 ABG HCO3 ABG Base Excess ABG Hemoglobin Oxyhemoglobin Sodium 127 L Potassium Chloride 86.8 L Carbon Dioxide 20 L BUN 42 H Creatinine 3.5 H Glucose POC Glucose 65 L Lactic Acid Calcium 7.0 L Ionized Calcium Phosphorus Magnesium Direct Bilirubin AST ALT Alkaline Phosphatase Lactate Dehydrogenase Troponin T C-Reactive Protein Total Protein Albumin Prealbumin Triglycerides Cholesterol LDL Cholesterol Direct HDL Cholesterol 25-OH Vitamin D Total PTH Intact Urine pH Urine WBC (Auto) Urine Creatinine Urine Total Protein Fluid Total Protein Vancomycin Trough Rheumatoid Factor Complement C4 Miscellaneous Test Crossmatch 10/01/16 10/01/16 10/02/16 17:39 23:32 00:59 WBC RBC Hgb Hct MCV MCH MCHC RDW Plt Count Lymph % (Auto) [place] % (Auto) Lymph # [place] # Baso # Seg Neutrophils % Seg Neuts % (Manual) Lymphocytes % (Manual) Monocytes % (Manual) Eosinophils % (Manual) Basophils % (Manual) Nucleated RBC % Seg Neutrophils # Seg Neutrophils # Man Lymphocytes # (Manual) Monocytes # (Manual) Eosinophils # (Manual) Basophils # (Manual) PT INR Fibrinogen dRVVT Confirm Interp Factor V Activity POC ABG pH POC ABG pCO2 POC ABG pO2 ABG pO2 ABG HCO3 ABG Base Excess ABG Hemoglobin Oxyhemoglobin Sodium Potassium Chloride Carbon Dioxide BUN Creatinine Glucose POC Glucose 107 H 52 L 145 H Lactic Acid Calcium Ionized Calcium Phosphorus Magnesium Direct Bilirubin AST ALT Alkaline Phosphatase Lactate Dehydrogenase Troponin T C-Reactive Protein Total Protein Albumin Prealbumin Triglycerides Cholesterol LDL Cholesterol Direct HDL Cholesterol 25-OH Vitamin D Total PTH Intact Urine pH Urine WBC (Auto) Urine Creatinine Urine Total Protein Fluid Total Protein Vancomycin Trough Rheumatoid Factor Complement C4 Miscellaneous Test Crossmatch 10/02/16 10/02/16 10/02/16 10:30 10:50 10:50 WBC 14.7 H RBC 2.76 L Hgb 7.4 L Hct 23.6 L MCV MCH 27 L MCHC RDW 20.2 H Plt Count 79 L Lymph % (Auto) [place] % (Auto) Lymph # [place] # Baso # Seg Neutrophils % Seg Neuts % (Manual) 86.0 H Lymphocytes % (Manual) 6.0 L Monocytes % (Manual) Eosinophils % (Manual) Basophils % (Manual) Nucleated RBC % Seg Neutrophils # Seg Neutrophils # Man 12.6 H Lymphocytes # (Manual) 0.9 L Monocytes # (Manual) Eosinophils # (Manual) Basophils # (Manual) PT INR Fibrinogen dRVVT Confirm Interp Factor V Activity POC ABG pH 7.486 H POC ABG pCO2 30.1 L POC ABG pO2 108 H ABG pO2 ABG HCO3 ABG Base Excess ABG Hemoglobin Oxyhemoglobin Sodium 131 L Potassium 3.4 L Chloride 89.9 L Carbon Dioxide BUN 26 H Creatinine 2.6 H Glucose POC Glucose Lactic Acid Calcium 7.0 L Ionized Calcium Phosphorus Magnesium Direct Bilirubin AST ALT Alkaline Phosphatase Lactate Dehydrogenase Troponin T C-Reactive Protein Total Protein Albumin Prealbumin Triglycerides Cholesterol LDL Cholesterol Direct HDL Cholesterol 25-OH Vitamin D Total PTH Intact Urine pH Urine WBC (Auto) Urine Creatinine Urine Total Protein Fluid Total Protein Vancomycin Trough Rheumatoid Factor Complement C4 Miscellaneous Test Crossmatch 10/02/16 10/03/16 10/03/16 23:45 00:45 05:10 WBC 12.9 H RBC 2.77 L Hgb 7.6 L Hct 23.7 L MCV MCH 27 L MCHC RDW 19.7 H Plt Count 89 L Lymph % (Auto) [place] % (Auto) Lymph # [place] # Baso # Seg Neutrophils % Seg Neuts % (Manual) Lymphocytes % (Manual) 8.0 L Monocytes % (Manual) Eosinophils % (Manual) Basophils % (Manual) Nucleated RBC % Seg Neutrophils # 11.9 H Seg Neutrophils # Man Lymphocytes # (Manual) 1.0 L Monocytes # (Manual) Eosinophils # (Manual) Basophils # (Manual) PT INR Fibrinogen dRVVT Confirm Interp Factor V Activity POC ABG pH POC ABG pCO2 POC ABG pO2 ABG pO2 ABG HCO3 ABG Base Excess ABG Hemoglobin Oxyhemoglobin Sodium Potassium Chloride Carbon Dioxide BUN Creatinine Glucose POC Glucose 55 L 199 H Lactic Acid Calcium Ionized Calcium Phosphorus Magnesium Direct Bilirubin AST ALT Alkaline Phosphatase Lactate Dehydrogenase Troponin T C-Reactive Protein Total Protein Albumin Prealbumin Triglycerides Cholesterol LDL Cholesterol Direct HDL Cholesterol 25-OH Vitamin D Total PTH Intact Urine pH Urine WBC (Auto) Urine Creatinine Urine Total Protein Fluid Total Protein Vancomycin Trough Rheumatoid Factor Complement C4 Miscellaneous Test Crossmatch 10/03/16 10/03/16 10/03/16 05:10 12:14 13:18 WBC RBC Hgb Hct MCV MCH MCHC RDW Plt Count Lymph % (Auto) [place] % (Auto) Lymph # [place] # Baso # Seg Neutrophils % Seg Neuts % (Manual) Lymphocytes % (Manual) Monocytes % (Manual) Eosinophils % (Manual) Basophils % (Manual) Nucleated RBC % Seg Neutrophils # Seg Neutrophils # Man Lymphocytes # (Manual) Monocytes # (Manual) Eosinophils # (Manual) Basophils # (Manual) PT INR Fibrinogen dRVVT Confirm Interp Factor V Activity POC ABG pH POC ABG pCO2 POC ABG pO2 ABG pO2 ABG HCO3 ABG Base Excess ABG Hemoglobin Oxyhemoglobin Sodium 129 L Potassium 3.3 L Chloride 88.8 L Carbon Dioxide 20 L BUN 29 H Creatinine 2.8 H Glucose POC Glucose 68 L 127 H Lactic Acid Calcium 7.2 L Ionized Calcium Phosphorus Magnesium Direct Bilirubin AST ALT Alkaline Phosphatase Lactate Dehydrogenase Troponin T C-Reactive Protein Total Protein Albumin Prealbumin Triglycerides Cholesterol LDL Cholesterol Direct HDL Cholesterol 25-OH Vitamin D Total PTH Intact Urine pH Urine WBC (Auto) Urine Creatinine Urine Total Protein Fluid Total Protein Vancomycin Trough Rheumatoid Factor Complement C4 Miscellaneous Test Crossmatch 10/03/16 10/03/16 10/03/16 14:42 18:21 19:09 WBC RBC Hgb Hct MCV MCH MCHC RDW Plt Count Lymph % (Auto) [place] % (Auto) Lymph # [place] # Baso # Seg Neutrophils % Seg Neuts % (Manual) Lymphocytes % (Manual) Monocytes % (Manual) Eosinophils % (Manual) Basophils % (Manual) Nucleated RBC % Seg Neutrophils # Seg Neutrophils # Man Lymphocytes # (Manual) Monocytes # (Manual) Eosinophils # (Manual) Basophils # (Manual) PT INR Fibrinogen dRVVT Confirm Interp Factor V Activity POC ABG pH 7.499 H POC ABG pCO2 28.4 L POC ABG pO2 44 L ABG pO2 ABG HCO3 ABG Base Excess ABG Hemoglobin Oxyhemoglobin Sodium Potassium Chloride Carbon Dioxide BUN Creatinine Glucose POC Glucose 64 L 205 H Lactic Acid Calcium Ionized Calcium Phosphorus Magnesium Direct Bilirubin AST ALT Alkaline Phosphatase Lactate Dehydrogenase Troponin T C-Reactive Protein Total Protein Albumin Prealbumin Triglycerides Cholesterol LDL Cholesterol Direct HDL Cholesterol 25-OH Vitamin D Total PTH Intact Urine pH Urine WBC (Auto) Urine Creatinine Urine Total Protein Fluid Total Protein Vancomycin Trough Rheumatoid Factor Complement C4 Miscellaneous Test Crossmatch 10/03/16 10/04/16 10/04/16 23:33 04:18 06:30 WBC RBC 2.54 L Hgb 7.1 L Hct 21.7 L MCV MCH MCHC RDW 19.5 H Plt Count 76 L Lymph % (Auto) [place] % (Auto) Lymph # [place] # Baso # Seg Neutrophils % Seg Neuts % (Manual) 88.0 H Lymphocytes % (Manual) 6.0 L Monocytes % (Manual) Eosinophils % (Manual) Basophils % (Manual) Nucleated RBC % Seg Neutrophils # Seg Neutrophils # Man 8.8 H Lymphocytes # (Manual) 0.6 L Monocytes # (Manual) Eosinophils # (Manual) Basophils # (Manual) PT INR Fibrinogen dRVVT Confirm Interp Factor V Activity POC ABG pH 7.461 H POC ABG pCO2 33.6 L POC ABG pO2 211 H ABG pO2 ABG HCO3 ABG Base Excess ABG Hemoglobin Oxyhemoglobin Sodium Potassium Chloride Carbon Dioxide BUN Creatinine Glucose POC Glucose 136 H Lactic Acid Calcium Ionized Calcium Phosphorus Magnesium Direct Bilirubin AST ALT Alkaline Phosphatase Lactate Dehydrogenase Troponin T C-Reactive Protein Total Protein Albumin Prealbumin Triglycerides Cholesterol LDL Cholesterol Direct HDL Cholesterol 25-OH Vitamin D Total PTH Intact Urine pH Urine WBC (Auto) Urine Creatinine Urine Total Protein Fluid Total Protein Vancomycin Trough Rheumatoid Factor Complement C4 Miscellaneous Test Crossmatch 10/04/16 10/04/16 10/04/16 06:30 11:45 17:54 WBC RBC Hgb Hct MCV MCH MCHC RDW Plt Count Lymph % (Auto) [place] % (Auto) Lymph # [place] # Baso # Seg Neutrophils % Seg Neuts % (Manual) Lymphocytes % (Manual) Monocytes % (Manual) Eosinophils % (Manual) Basophils % (Manual) Nucleated RBC % Seg Neutrophils # Seg Neutrophils # Man Lymphocytes # (Manual) Monocytes # (Manual) Eosinophils # (Manual) Basophils # (Manual) PT INR Fibrinogen dRVVT Confirm Interp Factor V Activity POC ABG pH POC ABG pCO2 POC ABG pO2 ABG pO2 ABG HCO3 ABG Base Excess ABG Hemoglobin Oxyhemoglobin Sodium 128 L Potassium Chloride 87.4 L Carbon Dioxide 20 L BUN 34 H Creatinine 2.9 H Glucose 127 H POC Glucose 158 H 160 H Lactic Acid Calcium 7.4 L Ionized Calcium Phosphorus Magnesium Direct Bilirubin AST ALT Alkaline Phosphatase Lactate Dehydrogenase Troponin T C-Reactive Protein Total Protein Albumin Prealbumin Triglycerides Cholesterol LDL Cholesterol Direct HDL Cholesterol 25-OH Vitamin D Total PTH Intact Urine pH Urine WBC (Auto) Urine Creatinine Urine Total Protein Fluid Total Protein Vancomycin Trough Rheumatoid Factor Complement C4 Miscellaneous Test Crossmatch 10/04/16 10/05/16 10/05/16 23:25 04:30 05:00 WBC RBC 2.64 L Hgb 7.5 L Hct 22.6 L MCV MCH MCHC RDW 19.3 H Plt Count 80 L Lymph % (Auto) [place] % (Auto) Lymph # [place] # Baso # Seg Neutrophils % Seg Neuts % (Manual) Lymphocytes % (Manual) 12.0 L Monocytes % (Manual) Eosinophils % (Manual) Basophils % (Manual) Nucleated RBC % Seg Neutrophils # Seg Neutrophils # Man Lymphocytes # (Manual) Monocytes # (Manual) Eosinophils # (Manual) Basophils # (Manual) PT INR Fibrinogen dRVVT Confirm Interp Factor V Activity POC ABG pH 7.475 H POC ABG pCO2 33.3 L POC ABG pO2 140 H ABG pO2 ABG HCO3 ABG Base Excess ABG Hemoglobin Oxyhemoglobin Sodium Potassium Chloride Carbon Dioxide BUN Creatinine Glucose POC Glucose 141 H Lactic Acid Calcium Ionized Calcium Phosphorus Magnesium Direct Bilirubin AST ALT Alkaline Phosphatase Lactate Dehydrogenase Troponin T C-Reactive Protein Total Protein Albumin Prealbumin Triglycerides Cholesterol LDL Cholesterol Direct HDL Cholesterol 25-OH Vitamin D Total PTH Intact Urine pH Urine WBC (Auto) Urine Creatinine Urine Total Protein Fluid Total Protein Vancomycin Trough Rheumatoid Factor Complement C4 Miscellaneous Test Crossmatch 10/05/16 10/05/16 10/05/16 05:00 05:09 12:58 WBC RBC Hgb Hct MCV MCH MCHC RDW Plt Count Lymph % (Auto) [place] % (Auto) Lymph # [place] # Baso # Seg Neutrophils % Seg Neuts % (Manual) Lymphocytes % (Manual) Monocytes % (Manual) Eosinophils % (Manual) Basophils % (Manual) Nucleated RBC % Seg Neutrophils # Seg Neutrophils # Man Lymphocytes # (Manual) Monocytes # (Manual) Eosinophils # (Manual) Basophils # (Manual) PT INR Fibrinogen dRVVT Confirm Interp Factor V Activity POC ABG pH POC ABG pCO2 POC ABG pO2 ABG pO2 ABG HCO3 ABG Base Excess ABG Hemoglobin Oxyhemoglobin Sodium 131 L Potassium Chloride 94.0 L Carbon Dioxide 20 L BUN 22 H Creatinine 2.0 H Glucose 123 H POC Glucose 166 H 179 H Lactic Acid Calcium 7.7 L Ionized Calcium Phosphorus 2.20 L D Magnesium Direct Bilirubin AST ALT Alkaline Phosphatase Lactate Dehydrogenase Troponin T C-Reactive Protein Total Protein Albumin Prealbumin Triglycerides Cholesterol LDL Cholesterol Direct HDL Cholesterol 25-OH Vitamin D Total PTH Intact Urine pH Urine WBC (Auto) Urine Creatinine Urine Total Protein Fluid Total Protein Vancomycin Trough Rheumatoid Factor Complement C4 Miscellaneous Test Crossmatch 10/05/16 10/05/16 10/05/16 15:50 18:53 23:12 WBC RBC Hgb Hct MCV MCH MCHC RDW Plt Count Lymph % (Auto) [place] % (Auto) Lymph # [place] # Baso # Seg Neutrophils % Seg Neuts % (Manual) Lymphocytes % (Manual) Monocytes % (Manual) Eosinophils % (Manual) Basophils % (Manual) Nucleated RBC % Seg Neutrophils # Seg Neutrophils # Man Lymphocytes # (Manual) Monocytes # (Manual) Eosinophils # (Manual) Basophils # (Manual) PT INR Fibrinogen dRVVT Confirm Interp Factor V Activity POC ABG pH POC ABG pCO2 POC ABG pO2 ABG pO2 ABG HCO3 ABG Base Excess ABG Hemoglobin Oxyhemoglobin Sodium Potassium Chloride Carbon Dioxide BUN Creatinine Glucose POC Glucose 150 H 164 H Lactic Acid Calcium Ionized Calcium Phosphorus Magnesium Direct Bilirubin AST ALT Alkaline Phosphatase Lactate Dehydrogenase Troponin T C-Reactive Protein Total Protein Albumin Prealbumin Triglycerides Cholesterol LDL Cholesterol Direct HDL Cholesterol 25-OH Vitamin D Total PTH Intact Urine pH Urine WBC (Auto) Urine Creatinine Urine Total Protein Fluid Total Protein Vancomycin Trough Rheumatoid Factor Complement C4 Miscellaneous Test Crossmatch See Detail 10/06/16 10/06/16 10/06/16 03:50 03:50 04:53 WBC RBC 3.00 L Hgb 8.6 L Hct 25.8 L MCV MCH MCHC RDW 17.9 H Plt Count 65 L Lymph % (Auto) [place] % (Auto) Lymph # [place] # Baso # Seg Neutrophils % Seg Neuts % (Manual) 30.0 L Lymphocytes % (Manual) 5.0 L Monocytes % (Manual) Eosinophils % (Manual) Basophils % (Manual) Nucleated RBC % Seg Neutrophils # Seg Neutrophils # Man Lymphocytes # (Manual) 0.4 L Monocytes # (Manual) Eosinophils # (Manual) Basophils # (Manual) PT INR Fibrinogen dRVVT Confirm Interp Factor V Activity POC ABG pH 7.310 L POC ABG pCO2 49.0 H POC ABG pO2 ABG pO2 ABG HCO3 ABG Base Excess ABG Hemoglobin Oxyhemoglobin Sodium 133 L Potassium Chloride 95.9 L Carbon Dioxide BUN 26 H Creatinine 2.0 H Glucose 116 H POC Glucose Lactic Acid Calcium 7.8 L Ionized Calcium Phosphorus Magnesium Direct Bilirubin AST ALT Alkaline Phosphatase Lactate Dehydrogenase Troponin T C-Reactive Protein Total Protein Albumin Prealbumin Triglycerides Cholesterol LDL Cholesterol Direct HDL Cholesterol 25-OH Vitamin D Total PTH Intact Urine pH Urine WBC (Auto) Urine Creatinine Urine Total Protein Fluid Total Protein Vancomycin Trough Rheumatoid Factor Complement C4 Miscellaneous Test Crossmatch 10/06/16 10/06/16 10/06/16 05:23 11:52 18:34 WBC RBC Hgb Hct MCV MCH MCHC RDW Plt Count Lymph % (Auto) [place] % (Auto) Lymph # [place] # Baso # Seg Neutrophils % Seg Neuts % (Manual) Lymphocytes % (Manual) Monocytes % (Manual) Eosinophils % (Manual) Basophils % (Manual) Nucleated RBC % Seg Neutrophils # Seg Neutrophils # Man Lymphocytes # (Manual) Monocytes # (Manual) Eosinophils # (Manual) Basophils # (Manual) PT INR Fibrinogen dRVVT Confirm Interp Factor V Activity POC ABG pH POC ABG pCO2 POC ABG pO2 ABG pO2 ABG HCO3 ABG Base Excess ABG Hemoglobin Oxyhemoglobin Sodium Potassium Chloride Carbon Dioxide BUN Creatinine Glucose POC Glucose 126 H 116 H 129 H Lactic Acid Calcium Ionized Calcium Phosphorus Magnesium Direct Bilirubin AST ALT Alkaline Phosphatase Lactate Dehydrogenase Troponin T C-Reactive Protein Total Protein Albumin Prealbumin Triglycerides Cholesterol LDL Cholesterol Direct HDL Cholesterol 25-OH Vitamin D Total PTH Intact Urine pH Urine WBC (Auto) Urine Creatinine Urine Total Protein Fluid Total Protein Vancomycin Trough Rheumatoid Factor Complement C4 Miscellaneous Test Crossmatch 10/07/16 10/07/16 10/07/16 03:45 05:00 10:00 WBC 17.0 H RBC 2.68 L Hgb 7.3 L Hct 25.3 L MCV MCH 27 L MCHC 29 L RDW 19.6 H Plt Count 74 L Lymph % (Auto) [place] % (Auto) Lymph # [place] # Baso # Seg Neutrophils % Seg Neuts % (Manual) Lymphocytes % (Manual) 12.0 L Monocytes % (Manual) Eosinophils % (Manual) Basophils % (Manual) Nucleated RBC % 4.0 H Seg Neutrophils # Seg Neutrophils # Man 10.7 H Lymphocytes # (Manual) Monocytes # (Manual) Eosinophils # (Manual) Basophils # (Manual) PT INR Fibrinogen dRVVT Confirm Interp Factor V Activity POC ABG pH POC ABG pCO2 POC ABG pO2 ABG pO2 ABG HCO3 ABG Base Excess ABG Hemoglobin Oxyhemoglobin Sodium 130 L Potassium 3.2 L Chloride 93.9 L Carbon Dioxide 20 L BUN 44 H Creatinine 2.7 H Glucose 129 H POC Glucose Lactic Acid Calcium 7.4 L Ionized Calcium Phosphorus Magnesium Direct Bilirubin AST ALT 6 L Alkaline Phosphatase 195 H Lactate Dehydrogenase Troponin T C-Reactive Protein Total Protein 4.9 L Albumin 1.0 L Prealbumin Triglycerides Cholesterol LDL Cholesterol Direct HDL Cholesterol 25-OH Vitamin D Total PTH Intact Urine pH Urine WBC (Auto) Urine Creatinine Urine Total Protein Fluid Total Protein Vancomycin Trough Rheumatoid Factor Complement C4 Miscellaneous Test Flexitest 1 H Crossmatch 10/07/16 10/07/16 10/07/16 10:00 11:24 18:10 WBC RBC Hgb Hct MCV MCH MCHC RDW Plt Count Lymph % (Auto) [place] % (Auto) Lymph # [place] # Baso # Seg Neutrophils % Seg Neuts % (Manual) Lymphocytes % (Manual) Monocytes % (Manual) Eosinophils % (Manual) Basophils % (Manual) Nucleated RBC % Seg Neutrophils # Seg Neutrophils # Man Lymphocytes # (Manual) Monocytes # (Manual) Eosinophils # (Manual) Basophils # (Manual) PT INR Fibrinogen dRVVT Confirm Interp Factor V Activity POC ABG pH POC ABG pCO2 POC ABG pO2 ABG pO2 ABG HCO3 ABG Base Excess ABG Hemoglobin Oxyhemoglobin Sodium Potassium Chloride Carbon Dioxide BUN Creatinine Glucose POC Glucose 116 H 130 H Lactic Acid Calcium Ionized Calcium Phosphorus Magnesium Direct Bilirubin AST ALT Alkaline Phosphatase Lactate Dehydrogenase Troponin T C-Reactive Protein 19.40 H Total Protein Albumin Prealbumin Triglycerides Cholesterol LDL Cholesterol Direct HDL Cholesterol 25-OH Vitamin D Total PTH Intact Urine pH Urine WBC (Auto) Urine Creatinine Urine Total Protein Fluid Total Protein Vancomycin Trough Rheumatoid Factor Complement C4 Miscellaneous Test Crossmatch 10/07/16 10/08/16 10/08/16 18:30 00:00 04:00 WBC RBC Hgb Hct MCV MCH MCHC RDW Plt Count Lymph % (Auto) [place] % (Auto) Lymph # [place] # Baso # Seg Neutrophils % Seg Neuts % (Manual) Lymphocytes % (Manual) Monocytes % (Manual) Eosinophils % (Manual) Basophils % (Manual) Nucleated RBC % Seg Neutrophils # Seg Neutrophils # Man Lymphocytes # (Manual) Monocytes # (Manual) Eosinophils # (Manual) Basophils # (Manual) PT INR Fibrinogen dRVVT Confirm Interp Factor V Activity POC ABG pH POC ABG pCO2 POC ABG pO2 ABG pO2 ABG HCO3 ABG Base Excess ABG Hemoglobin Oxyhemoglobin Sodium 132 L Potassium 3.3 L Chloride 93.6 L Carbon Dioxide 17 L BUN 59 H Creatinine 2.7 H Glucose 121 H POC Glucose 122 H Lactic Acid Calcium 7.6 L Ionized Calcium Phosphorus Magnesium Direct Bilirubin AST ALT Alkaline Phosphatase Lactate Dehydrogenase Troponin T C-Reactive Protein Total Protein Albumin Prealbumin Triglycerides Cholesterol LDL Cholesterol Direct HDL Cholesterol 25-OH Vitamin D Total PTH Intact Urine pH Urine WBC (Auto) > 182.0 H Urine Creatinine Urine Total Protein Fluid Total Protein Vancomycin Trough Rheumatoid Factor Complement C4 Miscellaneous Test Crossmatch 10/08/16 10/08/16 10/08/16 04:30 05:30 11:51 WBC RBC 5.15 H Hgb 14.4 H D Hct 44.5 H D MCV MCH MCHC RDW 19.5 H Plt Count 56 L Lymph % (Auto) [place] % (Auto) Lymph # [place] # Baso # Seg Neutrophils % Seg Neuts % (Manual) 24.0 L Lymphocytes % (Manual) 8.0 L Monocytes % (Manual) Eosinophils % (Manual) Basophils % (Manual) Nucleated RBC % 9.0 H Seg Neutrophils # Seg Neutrophils # Man Lymphocytes # (Manual) 0.7 L Monocytes # (Manual) Eosinophils # (Manual) Basophils # (Manual) PT INR Fibrinogen dRVVT Confirm Interp Factor V Activity POC ABG pH POC ABG pCO2 POC ABG pO2 ABG pO2 ABG HCO3 ABG Base Excess ABG Hemoglobin Oxyhemoglobin Sodium Potassium Chloride Carbon Dioxide BUN Creatinine Glucose POC Glucose 125 H 150 H Lactic Acid Calcium Ionized Calcium Phosphorus Magnesium Direct Bilirubin AST ALT Alkaline Phosphatase Lactate Dehydrogenase Troponin T C-Reactive Protein Total Protein Albumin Prealbumin Triglycerides Cholesterol LDL Cholesterol Direct HDL Cholesterol 25-OH Vitamin D Total PTH Intact Urine pH Urine WBC (Auto) Urine Creatinine Urine Total Protein Fluid Total Protein Vancomycin Trough Rheumatoid Factor Complement C4 Miscellaneous Test Crossmatch 10/08/16 10/08/16 10/08/16 12:49 17:07 19:30 WBC RBC Hgb 7.1 L D Hct 22.4 L D MCV MCH MCHC RDW Plt Count Lymph % (Auto) [place] % (Auto) Lymph # [place] # Baso # Seg Neutrophils % Seg Neuts % (Manual) Lymphocytes % (Manual) Monocytes % (Manual) Eosinophils % (Manual) Basophils % (Manual) Nucleated RBC % Seg Neutrophils # Seg Neutrophils # Man Lymphocytes # (Manual) Monocytes # (Manual) Eosinophils # (Manual) Basophils # (Manual) PT INR Fibrinogen dRVVT Confirm Interp Factor V Activity POC ABG pH POC ABG pCO2 28.2 L POC ABG pO2 111 H ABG pO2 ABG HCO3 ABG Base Excess ABG Hemoglobin Oxyhemoglobin Sodium Potassium Chloride Carbon Dioxide BUN Creatinine Glucose POC Glucose 145 H Lactic Acid Calcium Ionized Calcium Phosphorus Magnesium Direct Bilirubin AST ALT Alkaline Phosphatase Lactate Dehydrogenase Troponin T C-Reactive Protein Total Protein Albumin Prealbumin Triglycerides Cholesterol LDL Cholesterol Direct HDL Cholesterol 25-OH Vitamin D Total PTH Intact Urine pH Urine WBC (Auto) Urine Creatinine Urine Total Protein Fluid Total Protein Vancomycin Trough Rheumatoid Factor Complement C4 Miscellaneous Test Crossmatch 10/08/16 10/09/16 10/09/16 19:30 03:45 03:45 WBC 12.6 H RBC 2.36 L Hgb 6.7 L Hct 21.1 L MCV MCH MCHC RDW 19.5 H Plt Count 75 L Lymph % (Auto) [place] % (Auto) Lymph # [place] # Baso # Seg Neutrophils % Seg Neuts % (Manual) Lymphocytes % (Manual) Monocytes % (Manual) 10.0 H Eosinophils % (Manual) Basophils % (Manual) Nucleated RBC % 3.0 H Seg Neutrophils # Seg Neutrophils # Man Lymphocytes # (Manual) Monocytes # (Manual) 1.3 H Eosinophils # (Manual) Basophils # (Manual) PT 18.0 H INR 1.41 H Fibrinogen dRVVT Confirm Interp Factor V Activity POC ABG pH POC ABG pCO2 POC ABG pO2 ABG pO2 ABG HCO3 ABG Base Excess ABG Hemoglobin Oxyhemoglobin Sodium 135 L Potassium Chloride Carbon Dioxide 17 L BUN 81 H Creatinine 3.2 H Glucose 109 H POC Glucose Lactic Acid Calcium 7.4 L Ionized Calcium Phosphorus 4.60 H D Magnesium Direct Bilirubin AST ALT Alkaline Phosphatase Lactate Dehydrogenase Troponin T C-Reactive Protein Total Protein Albumin Prealbumin Triglycerides Cholesterol LDL Cholesterol Direct HDL Cholesterol 25-OH Vitamin D Total PTH Intact Urine pH Urine WBC (Auto) Urine Creatinine Urine Total Protein Fluid Total Protein Vancomycin Trough Rheumatoid Factor Complement C4 Miscellaneous Test Crossmatch 10/09/16 10/09/16 10/09/16 03:45 05:14 07:20 WBC RBC Hgb Hct MCV MCH MCHC RDW Plt Count Lymph % (Auto) [place] % (Auto) Lymph # [place] # Baso # Seg Neutrophils % Seg Neuts % (Manual) Lymphocytes % (Manual) Monocytes % (Manual) Eosinophils % (Manual) Basophils % (Manual) Nucleated RBC % Seg Neutrophils # Seg Neutrophils # Man Lymphocytes # (Manual) Monocytes # (Manual) Eosinophils # (Manual) Basophils # (Manual) PT 19.0 H INR 1.51 H Fibrinogen dRVVT Confirm Interp Factor V Activity POC ABG pH POC ABG pCO2 POC ABG pO2 ABG pO2 ABG HCO3 ABG Base Excess ABG Hemoglobin Oxyhemoglobin Sodium Potassium Chloride Carbon Dioxide BUN Creatinine Glucose POC Glucose 151 H Lactic Acid Calcium Ionized Calcium Phosphorus Magnesium Direct Bilirubin AST ALT Alkaline Phosphatase Lactate Dehydrogenase Troponin T C-Reactive Protein Total Protein Albumin Prealbumin Triglycerides Cholesterol LDL Cholesterol Direct HDL Cholesterol 25-OH Vitamin D Total PTH Intact Urine pH Urine WBC (Auto) Urine Creatinine Urine Total Protein Fluid Total Protein Vancomycin Trough Rheumatoid Factor Complement C4 Miscellaneous Test Crossmatch See Detail 10/09/16 10/09/16 10/09/16 11:46 16:20 16:43 WBC RBC Hgb 7.2 L Hct 22.2 L MCV MCH MCHC RDW Plt Count Lymph % (Auto) [place] % (Auto) Lymph # [place] # Baso # Seg Neutrophils % Seg Neuts % (Manual) Lymphocytes % (Manual) Monocytes % (Manual) Eosinophils % (Manual) Basophils % (Manual) Nucleated RBC % Seg Neutrophils # Seg Neutrophils # Man Lymphocytes # (Manual) Monocytes # (Manual) Eosinophils # (Manual) Basophils # (Manual) PT INR Fibrinogen dRVVT Confirm Interp Factor V Activity POC ABG pH POC ABG pCO2 POC ABG pO2 ABG pO2 ABG HCO3 ABG Base Excess ABG Hemoglobin Oxyhemoglobin Sodium Potassium Chloride Carbon Dioxide BUN Creatinine Glucose POC Glucose 133 H 141 H Lactic Acid Calcium Ionized Calcium Phosphorus Magnesium Direct Bilirubin AST ALT Alkaline Phosphatase Lactate Dehydrogenase Troponin T C-Reactive Protein Total Protein Albumin Prealbumin Triglycerides Cholesterol LDL Cholesterol Direct HDL Cholesterol 25-OH Vitamin D Total PTH Intact Urine pH Urine WBC (Auto) Urine Creatinine Urine Total Protein Fluid Total Protein Vancomycin Trough Rheumatoid Factor Complement C4 Miscellaneous Test Crossmatch 10/10/16 10/10/16 10/10/16 05:00 05:00 11:19 WBC 18.5 H RBC 2.19 L Hgb 6.4 L Hct 19.6 L* MCV MCH MCHC RDW 19.3 H Plt Count 93 L Lymph % (Auto) [place] % (Auto) Lymph # [place] # Baso # Seg Neutrophils % Seg Neuts % (Manual) Lymphocytes % (Manual) 10.0 L Monocytes % (Manual) Eosinophils % (Manual) Basophils % (Manual) Nucleated RBC % 4.0 H Seg Neutrophils # Seg Neutrophils # Man 11.3 H Lymphocytes # (Manual) Monocytes # (Manual) Eosinophils # (Manual) Basophils # (Manual) PT INR Fibrinogen dRVVT Confirm Interp Factor V Activity POC ABG pH POC ABG pCO2 POC ABG pO2 ABG pO2 ABG HCO3 ABG Base Excess ABG Hemoglobin Oxyhemoglobin Sodium Potassium 5.7 H D Chloride Carbon Dioxide 16 L BUN 94 H Creatinine 3.1 H Glucose 131 H POC Glucose 153 H Lactic Acid Calcium 8.2 L Ionized Calcium Phosphorus 5.10 H Magnesium 2.40 H Direct Bilirubin 0.3 H AST ALT < 5 L Alkaline Phosphatase 319 H Lactate Dehydrogenase Troponin T C-Reactive Protein Total Protein 5.1 L Albumin 1.0 L Prealbumin Triglycerides Cholesterol LDL Cholesterol Direct HDL Cholesterol 25-OH Vitamin D Total PTH Intact Urine pH Urine WBC (Auto) Urine Creatinine Urine Total Protein Fluid Total Protein Vancomycin Trough Rheumatoid Factor Complement C4 Miscellaneous Test Crossmatch 10/10/16 10/10/16 10/11/16 17:50 23:30 04:15 WBC RBC Hgb Hct MCV MCH MCHC RDW Plt Count Lymph % (Auto) [place] % (Auto) Lymph # [place] # Baso # Seg Neutrophils % Seg Neuts % (Manual) Lymphocytes % (Manual) Monocytes % (Manual) Eosinophils % (Manual) Basophils % (Manual) Nucleated RBC % Seg Neutrophils # Seg Neutrophils # Man Lymphocytes # (Manual) Monocytes # (Manual) Eosinophils # (Manual) Basophils # (Manual) PT INR Fibrinogen dRVVT Confirm Interp Factor V Activity POC ABG pH POC ABG pCO2 POC ABG pO2 ABG pO2 ABG HCO3 ABG Base Excess ABG Hemoglobin Oxyhemoglobin Sodium Potassium Chloride 96.4 L Carbon Dioxide 21 L BUN 57 H Creatinine 2.1 H Glucose 151 H POC Glucose 146 H 141 H Lactic Acid Calcium 8.3 L Ionized Calcium Phosphorus Magnesium Direct Bilirubin AST ALT Alkaline Phosphatase Lactate Dehydrogenase Troponin T C-Reactive Protein Total Protein Albumin Prealbumin Triglycerides Cholesterol LDL Cholesterol Direct HDL Cholesterol 25-OH Vitamin D Total PTH Intact Urine pH Urine WBC (Auto) Urine Creatinine Urine Total Protein Fluid Total Protein Vancomycin Trough Rheumatoid Factor Complement C4 Miscellaneous Test Crossmatch 10/11/16 10/11/16 10/11/16 04:15 04:15 05:30 WBC 28.3 H RBC 3.12 L Hgb 9.3 L Hct 28.7 L D MCV MCH MCHC RDW 17.7 H Plt Count 128 L Lymph % (Auto) [place] % (Auto) Lymph # [place] # Baso # Seg Neutrophils % Seg Neuts % (Manual) Lymphocytes % (Manual) Monocytes % (Manual) Eosinophils % (Manual) Basophils % (Manual) Nucleated RBC % Seg Neutrophils # Seg Neutrophils # Man Lymphocytes # (Manual) Monocytes # (Manual) Eosinophils # (Manual) Basophils # (Manual) PT INR Fibrinogen dRVVT Confirm Interp Factor V Activity POC ABG pH POC ABG pCO2 POC ABG pO2 ABG pO2 ABG HCO3 ABG Base Excess ABG Hemoglobin Oxyhemoglobin Sodium Potassium Chloride Carbon Dioxide BUN Creatinine Glucose POC Glucose 167 H Lactic Acid Calcium Ionized Calcium Phosphorus Magnesium Direct Bilirubin AST ALT Alkaline Phosphatase Lactate Dehydrogenase Troponin T C-Reactive Protein 15.80 H Total Protein Albumin Prealbumin Triglycerides Cholesterol LDL Cholesterol Direct HDL Cholesterol 25-OH Vitamin D Total PTH Intact Urine pH Urine WBC (Auto) Urine Creatinine Urine Total Protein Fluid Total Protein Vancomycin Trough Rheumatoid Factor Complement C4 Miscellaneous Test Crossmatch 10/11/16 10/11/16 10/11/16 11:40 15:49 23:57 WBC RBC Hgb Hct MCV MCH MCHC RDW Plt Count Lymph % (Auto) [place] % (Auto) Lymph # [place] # Baso # Seg Neutrophils % Seg Neuts % (Manual) Lymphocytes % (Manual) Monocytes % (Manual) Eosinophils % (Manual) Basophils % (Manual) Nucleated RBC % Seg Neutrophils # Seg Neutrophils # Man Lymphocytes # (Manual) Monocytes # (Manual) Eosinophils # (Manual) Basophils # (Manual) PT INR Fibrinogen dRVVT Confirm Interp Factor V Activity POC ABG pH POC ABG pCO2 POC ABG pO2 ABG pO2 ABG HCO3 ABG Base Excess ABG Hemoglobin Oxyhemoglobin Sodium Potassium Chloride Carbon Dioxide BUN Creatinine Glucose POC Glucose 139 H 168 H 161 H Lactic Acid Calcium Ionized Calcium Phosphorus Magnesium Direct Bilirubin AST ALT Alkaline Phosphatase Lactate Dehydrogenase Troponin T C-Reactive Protein Total Protein Albumin Prealbumin Triglycerides Cholesterol LDL Cholesterol Direct HDL Cholesterol 25-OH Vitamin D Total PTH Intact Urine pH Urine WBC (Auto) Urine Creatinine Urine Total Protein Fluid Total Protein Vancomycin Trough Rheumatoid Factor Complement C4 Miscellaneous Test Crossmatch 10/12/16 10/12/16 10/12/16 04:40 04:40 05:44 WBC 22.5 H RBC 2.88 L Hgb 8.8 L Hct 26.8 L MCV MCH MCHC RDW 17.8 H Plt Count Lymph % (Auto) [place] % (Auto) Lymph # [place] # Baso # Seg Neutrophils % Seg Neuts % (Manual) Lymphocytes % (Manual) Monocytes % (Manual) Eosinophils % (Manual) Basophils % (Manual) Nucleated RBC % Seg Neutrophils # Seg Neutrophils # Man Lymphocytes # (Manual) Monocytes # (Manual) Eosinophils # (Manual) Basophils # (Manual) PT INR Fibrinogen dRVVT Confirm Interp Factor V Activity POC ABG pH POC ABG pCO2 POC ABG pO2 ABG pO2 ABG HCO3 ABG Base Excess ABG Hemoglobin Oxyhemoglobin Sodium 134 L Potassium Chloride 93.0 L Carbon Dioxide BUN 74 H Creatinine 2.5 H Glucose 137 H POC Glucose 158 H Lactic Acid Calcium 8.2 L Ionized Calcium Phosphorus Magnesium Direct Bilirubin AST ALT Alkaline Phosphatase Lactate Dehydrogenase Troponin T C-Reactive Protein Total Protein Albumin Prealbumin Triglycerides Cholesterol LDL Cholesterol Direct HDL Cholesterol 25-OH Vitamin D Total PTH Intact Urine pH Urine WBC (Auto) Urine Creatinine Urine Total Protein Fluid Total Protein Vancomycin Trough Rheumatoid Factor Complement C4 Miscellaneous Test Crossmatch 10/12/16 10/12/16 10/12/16 12:27 18:18 23:46 WBC RBC Hgb Hct MCV MCH MCHC RDW Plt Count Lymph % (Auto) [place] % (Auto) Lymph # [place] # Baso # Seg Neutrophils % Seg Neuts % (Manual) Lymphocytes % (Manual) Monocytes % (Manual) Eosinophils % (Manual) Basophils % (Manual) Nucleated RBC % Seg Neutrophils # Seg Neutrophils # Man Lymphocytes # (Manual) Monocytes # (Manual) Eosinophils # (Manual) Basophils # (Manual) PT INR Fibrinogen dRVVT Confirm Interp Factor V Activity POC ABG pH POC ABG pCO2 POC ABG pO2 ABG pO2 ABG HCO3 ABG Base Excess ABG Hemoglobin Oxyhemoglobin Sodium Potassium Chloride Carbon Dioxide BUN Creatinine Glucose POC Glucose 153 H 140 H 150 H Lactic Acid Calcium Ionized Calcium Phosphorus Magnesium Direct Bilirubin AST ALT Alkaline Phosphatase Lactate Dehydrogenase Troponin T C-Reactive Protein Total Protein Albumin Prealbumin Triglycerides Cholesterol LDL Cholesterol Direct HDL Cholesterol 25-OH Vitamin D Total PTH Intact Urine pH Urine WBC (Auto) Urine Creatinine Urine Total Protein Fluid Total Protein Vancomycin Trough Rheumatoid Factor Complement C4 Miscellaneous Test Crossmatch 10/13/16 10/13/16 10/13/16 06:22 09:20 12:29 WBC RBC Hgb Hct MCV MCH MCHC RDW Plt Count Lymph % (Auto) [place] % (Auto) Lymph # [place] # Baso # Seg Neutrophils % Seg Neuts % (Manual) Lymphocytes % (Manual) Monocytes % (Manual) Eosinophils % (Manual) Basophils % (Manual) Nucleated RBC % Seg Neutrophils # Seg Neutrophils # Man Lymphocytes # (Manual) Monocytes # (Manual) Eosinophils # (Manual) Basophils # (Manual) PT INR Fibrinogen dRVVT Confirm Interp Factor V Activity POC ABG pH POC ABG pCO2 POC ABG pO2 ABG pO2 ABG HCO3 ABG Base Excess ABG Hemoglobin Oxyhemoglobin Sodium Potassium Chloride Carbon Dioxide BUN Creatinine Glucose POC Glucose 165 H 193 H Lactic Acid Calcium Ionized Calcium Phosphorus Magnesium Direct Bilirubin AST ALT Alkaline Phosphatase Lactate Dehydrogenase Troponin T C-Reactive Protein Total Protein Albumin Prealbumin Triglycerides Cholesterol LDL Cholesterol Direct HDL Cholesterol 25-OH Vitamin D Total PTH Intact Urine pH Urine WBC (Auto) Urine Creatinine Urine Total Protein Fluid Total Protein Vancomycin Trough Rheumatoid Factor Complement C4 Miscellaneous Test Flexitest 1 H Crossmatch 10/13/16 10/13/16 10/13/16 18:09 Unknown Unknown WBC 23.4 H RBC 2.83 L Hgb 8.7 L Hct 26.1 L MCV MCH MCHC RDW 18.1 H Plt Count Lymph % (Auto) [place] % (Auto) Lymph # [place] # Baso # Seg Neutrophils % Seg Neuts % (Manual) Lymphocytes % (Manual) Monocytes % (Manual) Eosinophils % (Manual) Basophils % (Manual) Nucleated RBC % Seg Neutrophils # Seg Neutrophils # Man Lymphocytes # (Manual) Monocytes # (Manual) Eosinophils # (Manual) Basophils # (Manual) PT INR Fibrinogen dRVVT Confirm Interp Factor V Activity POC ABG pH POC ABG pCO2 POC ABG pO2 ABG pO2 ABG HCO3 ABG Base Excess ABG Hemoglobin Oxyhemoglobin Sodium Potassium Chloride 95.8 L Carbon Dioxide BUN 82 H Creatinine 2.6 H Glucose 152 H POC Glucose 166 H Lactic Acid Calcium Ionized Calcium Phosphorus Magnesium Direct Bilirubin AST ALT Alkaline Phosphatase Lactate Dehydrogenase Troponin T C-Reactive Protein Total Protein Albumin Prealbumin Triglycerides Cholesterol LDL Cholesterol Direct HDL Cholesterol 25-OH Vitamin D Total PTH Intact Urine pH Urine WBC (Auto) Urine Creatinine Urine Total Protein Fluid Total Protein Vancomycin Trough Rheumatoid Factor Complement C4 Miscellaneous Test Crossmatch 10/14/16 10/14/16 10/14/16 05:38 06:35 08:10 WBC 20.7 H RBC 2.81 L Hgb 8.4 L Hct 27.2 L MCV MCH MCHC RDW 19.4 H Plt Count Lymph % (Auto) [place] % (Auto) Lymph # [place] # Baso # Seg Neutrophils % Seg Neuts % (Manual) Lymphocytes % (Manual) Monocytes % (Manual) Eosinophils % (Manual) Basophils % (Manual) Nucleated RBC % Seg Neutrophils # Seg Neutrophils # Man Lymphocytes # (Manual) Monocytes # (Manual) Eosinophils # (Manual) Basophils # (Manual) PT INR Fibrinogen dRVVT Confirm Interp Factor V Activity POC ABG pH POC ABG pCO2 POC ABG pO2 ABG pO2 ABG HCO3 ABG Base Excess ABG Hemoglobin Oxyhemoglobin Sodium Potassium Chloride Carbon Dioxide BUN 58 H Creatinine 1.9 H Glucose 169 H POC Glucose 195 H Lactic Acid Calcium Ionized Calcium Phosphorus Magnesium Direct Bilirubin AST ALT Alkaline Phosphatase Lactate Dehydrogenase Troponin T C-Reactive Protein Total Protein Albumin Prealbumin Triglycerides Cholesterol LDL Cholesterol Direct HDL Cholesterol 25-OH Vitamin D Total PTH Intact Urine pH Urine WBC (Auto) Urine Creatinine Urine Total Protein Fluid Total Protein Vancomycin Trough Rheumatoid Factor Complement C4 Miscellaneous Test Crossmatch 10/14/16 10/14/16 10/14/16 11:44 17:13 23:28 WBC RBC Hgb Hct MCV MCH MCHC RDW Plt Count Lymph % (Auto) [place] % (Auto) Lymph # [place] # Baso # Seg Neutrophils % Seg Neuts % (Manual) Lymphocytes % (Manual) Monocytes % (Manual) Eosinophils % (Manual) Basophils % (Manual) Nucleated RBC % Seg Neutrophils # Seg Neutrophils # Man Lymphocytes # (Manual) Monocytes # (Manual) Eosinophils # (Manual) Basophils # (Manual) PT INR Fibrinogen dRVVT Confirm Interp Factor V Activity POC ABG pH POC ABG pCO2 POC ABG pO2 ABG pO2 ABG HCO3 ABG Base Excess ABG Hemoglobin Oxyhemoglobin Sodium Potassium Chloride Carbon Dioxide BUN Creatinine Glucose POC Glucose 174 H 121 H 151 H Lactic Acid Calcium Ionized Calcium Phosphorus Magnesium Direct Bilirubin AST ALT Alkaline Phosphatase Lactate Dehydrogenase Troponin T C-Reactive Protein Total Protein Albumin Prealbumin Triglycerides Cholesterol LDL Cholesterol Direct HDL Cholesterol 25-OH Vitamin D Total PTH Intact Urine pH Urine WBC (Auto) Urine Creatinine Urine Total Protein Fluid Total Protein Vancomycin Trough Rheumatoid Factor Complement C4 Miscellaneous Test Crossmatch 10/15/16 10/15/16 10/15/16 05:06 12:26 17:48 WBC RBC Hgb Hct MCV MCH MCHC RDW Plt Count Lymph % (Auto) [place] % (Auto) Lymph # [place] # Baso # Seg Neutrophils % Seg Neuts % (Manual) Lymphocytes % (Manual) Monocytes % (Manual) Eosinophils % (Manual) Basophils % (Manual) Nucleated RBC % Seg Neutrophils # Seg Neutrophils # Man Lymphocytes # (Manual) Monocytes # (Manual) Eosinophils # (Manual) Basophils # (Manual) PT INR Fibrinogen dRVVT Confirm Interp Factor V Activity POC ABG pH POC ABG pCO2 POC ABG pO2 ABG pO2 ABG HCO3 ABG Base Excess ABG Hemoglobin Oxyhemoglobin Sodium Potassium Chloride Carbon Dioxide BUN Creatinine Glucose POC Glucose 151 H 149 H 153 H Lactic Acid Calcium Ionized Calcium Phosphorus Magnesium Direct Bilirubin AST ALT Alkaline Phosphatase Lactate Dehydrogenase Troponin T C-Reactive Protein Total Protein Albumin Prealbumin Triglycerides Cholesterol LDL Cholesterol Direct HDL Cholesterol 25-OH Vitamin D Total PTH Intact Urine pH Urine WBC (Auto) Urine Creatinine Urine Total Protein Fluid Total Protein Vancomycin Trough Rheumatoid Factor Complement C4 Miscellaneous Test Crossmatch 10/15/16 10/15/16 10/16/16 Unknown Unknown 00:02 WBC 23.4 H RBC 2.78 L Hgb 8.5 L Hct 25.7 L MCV MCH MCHC RDW 18.7 H Plt Count Lymph % (Auto) [place] % (Auto) Lymph # [place] # Baso # Seg Neutrophils % Seg Neuts % (Manual) Lymphocytes % (Manual) Monocytes % (Manual) Eosinophils % (Manual) Basophils % (Manual) Nucleated RBC % Seg Neutrophils # Seg Neutrophils # Man Lymphocytes # (Manual) Monocytes # (Manual) Eosinophils # (Manual) Basophils # (Manual) PT INR Fibrinogen dRVVT Confirm Interp Factor V Activity POC ABG pH POC ABG pCO2 POC ABG pO2 ABG pO2 ABG HCO3 ABG Base Excess ABG Hemoglobin Oxyhemoglobin Sodium Potassium Chloride Carbon Dioxide BUN 73 H Creatinine 2.3 H Glucose 120 H POC Glucose 137 H Lactic Acid Calcium Ionized Calcium Phosphorus Magnesium Direct Bilirubin AST ALT Alkaline Phosphatase Lactate Dehydrogenase Troponin T C-Reactive Protein Total Protein Albumin Prealbumin Triglycerides Cholesterol LDL Cholesterol Direct HDL Cholesterol 25-OH Vitamin D Total PTH Intact Urine pH Urine WBC (Auto) Urine Creatinine Urine Total Protein Fluid Total Protein Vancomycin Trough Rheumatoid Factor Complement C4 Miscellaneous Test Crossmatch 10/16/16 10/16/16 10/16/16 05:44 06:25 06:25 WBC 22.5 H RBC 2.76 L Hgb 8.3 L Hct 25.2 L MCV MCH MCHC RDW 18.3 H Plt Count Lymph % (Auto) [place] % (Auto) Lymph # [place] # Baso # Seg Neutrophils % Seg Neuts % (Manual) Lymphocytes % (Manual) Monocytes % (Manual) Eosinophils % (Manual) Basophils % (Manual) Nucleated RBC % Seg Neutrophils # Seg Neutrophils # Man Lymphocytes # (Manual) Monocytes # (Manual) Eosinophils # (Manual) Basophils # (Manual) PT INR Fibrinogen dRVVT Confirm Interp Factor V Activity POC ABG pH POC ABG pCO2 POC ABG pO2 ABG pO2 ABG HCO3 ABG Base Excess ABG Hemoglobin Oxyhemoglobin Sodium Potassium Chloride Carbon Dioxide BUN 92 H Creatinine 3.0 H Glucose 138 H POC Glucose 110 H Lactic Acid Calcium Ionized Calcium Phosphorus Magnesium Direct Bilirubin AST ALT Alkaline Phosphatase Lactate Dehydrogenase Troponin T C-Reactive Protein Total Protein Albumin Prealbumin Triglycerides Cholesterol LDL Cholesterol Direct HDL Cholesterol 25-OH Vitamin D Total PTH Intact Urine pH Urine WBC (Auto) Urine Creatinine Urine Total Protein Fluid Total Protein Vancomycin Trough Rheumatoid Factor Complement C4 Miscellaneous Test Crossmatch 10/16/16 10/16/16 10/16/16 11:27 11:48 17:36 WBC RBC Hgb Hct MCV MCH MCHC RDW Plt Count Lymph % (Auto) [place] % (Auto) Lymph # [place] # Baso # Seg Neutrophils % Seg Neuts % (Manual) Lymphocytes % (Manual) Monocytes % (Manual) Eosinophils % (Manual) Basophils % (Manual) Nucleated RBC % Seg Neutrophils # Seg Neutrophils # Man Lymphocytes # (Manual) Monocytes # (Manual) Eosinophils # (Manual) Basophils # (Manual) PT INR Fibrinogen dRVVT Confirm Interp Factor V Activity POC ABG pH 7.582 H POC ABG pCO2 27.4 L POC ABG pO2 110 H ABG pO2 ABG HCO3 ABG Base Excess ABG Hemoglobin Oxyhemoglobin Sodium Potassium Chloride Carbon Dioxide BUN Creatinine Glucose POC Glucose 121 H 133 H Lactic Acid Calcium Ionized Calcium Phosphorus Magnesium Direct Bilirubin AST ALT Alkaline Phosphatase Lactate Dehydrogenase Troponin T C-Reactive Protein Total Protein Albumin Prealbumin Triglycerides Cholesterol LDL Cholesterol Direct HDL Cholesterol 25-OH Vitamin D Total PTH Intact Urine pH Urine WBC (Auto) Urine Creatinine Urine Total Protein Fluid Total Protein Vancomycin Trough Rheumatoid Factor Complement C4 Miscellaneous Test Crossmatch 10/16/16 10/17/16 10/17/16 20:48 04:24 04:24 WBC 21.4 H RBC 2.72 L Hgb 8.0 L Hct 25.2 L MCV MCH MCHC RDW 18.0 H Plt Count Lymph % (Auto) [place] % (Auto) Lymph # [place] # Baso # Seg Neutrophils % Seg Neuts % (Manual) Lymphocytes % (Manual) Monocytes % (Manual) Eosinophils % (Manual) Basophils % (Manual) Nucleated RBC % Seg Neutrophils # Seg Neutrophils # Man Lymphocytes # (Manual) Monocytes # (Manual) Eosinophils # (Manual) Basophils # (Manual) PT INR Fibrinogen dRVVT Confirm Interp Factor V Activity POC ABG pH 7.561 H POC ABG pCO2 24.4 L POC ABG pO2 77 L ABG pO2 ABG HCO3 ABG Base Excess ABG Hemoglobin Oxyhemoglobin Sodium 148 H Potassium Chloride Carbon Dioxide BUN 104 H Creatinine 3.0 H Glucose 149 H POC Glucose Lactic Acid Calcium Ionized Calcium Phosphorus Magnesium Direct Bilirubin AST ALT Alkaline Phosphatase 138 H Lactate Dehydrogenase Troponin T C-Reactive Protein Total Protein 6.2 L Albumin 1.5 L Prealbumin Triglycerides Cholesterol LDL Cholesterol Direct HDL Cholesterol 25-OH Vitamin D Total PTH Intact Urine pH Urine WBC (Auto) Urine Creatinine Urine Total Protein Fluid Total Protein Vancomycin Trough Rheumatoid Factor Complement C4 Miscellaneous Test Crossmatch 10/17/16 10/17/16 10/17/16 06:02 12:17 17:14 WBC RBC Hgb Hct MCV MCH MCHC RDW Plt Count Lymph % (Auto) [place] % (Auto) Lymph # [place] # Baso # Seg Neutrophils % Seg Neuts % (Manual) Lymphocytes % (Manual) Monocytes % (Manual) Eosinophils % (Manual) Basophils % (Manual) Nucleated RBC % Seg Neutrophils # Seg Neutrophils # Man Lymphocytes # (Manual) Monocytes # (Manual) Eosinophils # (Manual) Basophils # (Manual) PT INR Fibrinogen dRVVT Confirm Interp Factor V Activity POC ABG pH POC ABG pCO2 POC ABG pO2 ABG pO2 ABG HCO3 ABG Base Excess ABG Hemoglobin Oxyhemoglobin Sodium Potassium Chloride Carbon Dioxide BUN Creatinine Glucose POC Glucose 170 H 167 H 126 H Lactic Acid Calcium Ionized Calcium Phosphorus Magnesium Direct Bilirubin AST ALT Alkaline Phosphatase Lactate Dehydrogenase Troponin T C-Reactive Protein Total Protein Albumin Prealbumin Triglycerides Cholesterol LDL Cholesterol Direct HDL Cholesterol 25-OH Vitamin D Total PTH Intact Urine pH Urine WBC (Auto) Urine Creatinine Urine Total Protein Fluid Total Protein Vancomycin Trough Rheumatoid Factor Complement C4 Miscellaneous Test Crossmatch 10/17/16 10/18/16 10/18/16 23:17 04:00 04:00 WBC 20.7 H RBC 2.47 L Hgb 7.4 L Hct 22.9 L MCV MCH MCHC RDW 17.5 H Plt Count Lymph % (Auto) [place] % (Auto) Lymph # [place] # Baso # Seg Neutrophils % Seg Neuts % (Manual) Lymphocytes % (Manual) Monocytes % (Manual) Eosinophils % (Manual) Basophils % (Manual) Nucleated RBC % Seg Neutrophils # Seg Neutrophils # Man Lymphocytes # (Manual) Monocytes # (Manual) Eosinophils # (Manual) Basophils # (Manual) PT INR Fibrinogen dRVVT Confirm Interp Factor V Activity POC ABG pH POC ABG pCO2 POC ABG pO2 ABG pO2 ABG HCO3 ABG Base Excess ABG Hemoglobin Oxyhemoglobin Sodium 149 H Potassium Chloride 107.9 H Carbon Dioxide 20 L BUN 117 H Creatinine 3.2 H Glucose 119 H POC Glucose 121 H Lactic Acid Calcium Ionized Calcium Phosphorus Magnesium Direct Bilirubin AST ALT Alkaline Phosphatase Lactate Dehydrogenase Troponin T C-Reactive Protein Total Protein Albumin Prealbumin Triglycerides Cholesterol LDL Cholesterol Direct HDL Cholesterol 25-OH Vitamin D Total PTH Intact Urine pH Urine WBC (Auto) Urine Creatinine Urine Total Protein Fluid Total Protein Vancomycin Trough Rheumatoid Factor Complement C4 Miscellaneous Test Crossmatch 10/18/16 10/18/16 10/18/16 05:23 10:46 17:30 WBC RBC Hgb Hct MCV MCH MCHC RDW Plt Count Lymph % (Auto) [place] % (Auto) Lymph # [place] # Baso # Seg Neutrophils % Seg Neuts % (Manual) Lymphocytes % (Manual) Monocytes % (Manual) Eosinophils % (Manual) Basophils % (Manual) Nucleated RBC % Seg Neutrophils # Seg Neutrophils # Man Lymphocytes # (Manual) Monocytes # (Manual) Eosinophils # (Manual) Basophils # (Manual) PT INR Fibrinogen dRVVT Confirm Interp Factor V Activity POC ABG pH POC ABG pCO2 POC ABG pO2 ABG pO2 ABG HCO3 ABG Base Excess ABG Hemoglobin Oxyhemoglobin Sodium Potassium Chloride Carbon Dioxide BUN Creatinine Glucose POC Glucose 119 H 155 H 124 H Lactic Acid Calcium Ionized Calcium Phosphorus Magnesium Direct Bilirubin AST ALT Alkaline Phosphatase Lactate Dehydrogenase Troponin T C-Reactive Protein Total Protein Albumin Prealbumin Triglycerides Cholesterol LDL Cholesterol Direct HDL Cholesterol 25-OH Vitamin D Total PTH Intact Urine pH Urine WBC (Auto) Urine Creatinine Urine Total Protein Fluid Total Protein Vancomycin Trough Rheumatoid Factor Complement C4 Miscellaneous Test Crossmatch 10/19/16 10/19/16 10/19/16 04:00 04:00 05:25 WBC 17.4 H RBC 2.54 L Hgb 7.7 L Hct 23.6 L MCV MCH MCHC RDW 17.3 H Plt Count Lymph % (Auto) [place] % (Auto) Lymph # [place] # Baso # Seg Neutrophils % Seg Neuts % (Manual) Lymphocytes % (Manual) Monocytes % (Manual) Eosinophils % (Manual) Basophils % (Manual) Nucleated RBC % Seg Neutrophils # Seg Neutrophils # Man Lymphocytes # (Manual) Monocytes # (Manual) Eosinophils # (Manual) Basophils # (Manual) PT INR Fibrinogen dRVVT Confirm Interp Factor V Activity POC ABG pH POC ABG pCO2 POC ABG pO2 ABG pO2 ABG HCO3 ABG Base Excess ABG Hemoglobin Oxyhemoglobin Sodium Potassium Chloride Carbon Dioxide BUN 72 H Creatinine 2.1 H Glucose 116 H POC Glucose 119 H Lactic Acid Calcium Ionized Calcium Phosphorus Magnesium Direct Bilirubin AST ALT Alkaline Phosphatase Lactate Dehydrogenase Troponin T C-Reactive Protein Total Protein Albumin Prealbumin Triglycerides Cholesterol LDL Cholesterol Direct HDL Cholesterol 25-OH Vitamin D Total PTH Intact Urine pH Urine WBC (Auto) Urine Creatinine Urine Total Protein Fluid Total Protein Vancomycin Trough Rheumatoid Factor Complement C4 Miscellaneous Test Crossmatch 10/19/16 10/19/16 10/20/16 11:46 23:59 06:00 WBC RBC Hgb Hct MCV MCH MCHC RDW Plt Count Lymph % (Auto) [place] % (Auto) Lymph # [place] # Baso # Seg Neutrophils % Seg Neuts % (Manual) Lymphocytes % (Manual) Monocytes % (Manual) Eosinophils % (Manual) Basophils % (Manual) Nucleated RBC % Seg Neutrophils # Seg Neutrophils # Man Lymphocytes # (Manual) Monocytes # (Manual) Eosinophils # (Manual) Basophils # (Manual) PT INR Fibrinogen dRVVT Confirm Interp Factor V Activity POC ABG pH POC ABG pCO2 POC ABG pO2 ABG pO2 ABG HCO3 ABG Base Excess ABG Hemoglobin Oxyhemoglobin Sodium Potassium Chloride Carbon Dioxide 17 L BUN 94 H Creatinine 2.7 H Glucose POC Glucose 116 H 117 H Lactic Acid Calcium Ionized Calcium Phosphorus Magnesium Direct Bilirubin AST ALT Alkaline Phosphatase Lactate Dehydrogenase Troponin T C-Reactive Protein Total Protein Albumin Prealbumin Triglycerides Cholesterol LDL Cholesterol Direct HDL Cholesterol 25-OH Vitamin D Total PTH Intact Urine pH Urine WBC (Auto) Urine Creatinine Urine Total Protein Fluid Total Protein Vancomycin Trough Rheumatoid Factor Complement C4 Miscellaneous Test Crossmatch 10/20/16 10/20/16 10/20/16 06:00 11:49 16:00 WBC 19.7 H RBC 2.51 L Hgb 7.7 L Hct 23.5 L MCV MCH MCHC RDW 17.5 H Plt Count Lymph % (Auto) [place] % (Auto) Lymph # [place] # Baso # Seg Neutrophils % Seg Neuts % (Manual) Lymphocytes % (Manual) Monocytes % (Manual) Eosinophils % (Manual) Basophils % (Manual) Nucleated RBC % Seg Neutrophils # Seg Neutrophils # Man Lymphocytes # (Manual) Monocytes # (Manual) Eosinophils # (Manual) Basophils # (Manual) PT INR Fibrinogen dRVVT Confirm Interp Factor V Activity POC ABG pH POC ABG pCO2 POC ABG pO2 ABG pO2 ABG HCO3 ABG Base Excess ABG Hemoglobin Oxyhemoglobin Sodium Potassium Chloride Carbon Dioxide BUN Creatinine Glucose POC Glucose 117 H Lactic Acid Calcium Ionized Calcium Phosphorus Magnesium Direct Bilirubin AST ALT Alkaline Phosphatase Lactate Dehydrogenase Troponin T C-Reactive Protein Total Protein Albumin Prealbumin Triglycerides Cholesterol LDL Cholesterol Direct HDL Cholesterol 25-OH Vitamin D Total PTH Intact Urine pH Urine WBC (Auto) Urine Creatinine Urine Total Protein Fluid Total Protein Vancomycin Trough Rheumatoid Factor Complement C4 Miscellaneous Test Flexitest 1 H Crossmatch 10/20/16 10/20/16 10/21/16 18:36 23:39 04:00 WBC RBC Hgb Hct MCV MCH MCHC RDW Plt Count Lymph % (Auto) [place] % (Auto) Lymph # [place] # Baso # Seg Neutrophils % Seg Neuts % (Manual) Lymphocytes % (Manual) Monocytes % (Manual) Eosinophils % (Manual) Basophils % (Manual) Nucleated RBC % Seg Neutrophils # Seg Neutrophils # Man Lymphocytes # (Manual) Monocytes # (Manual) Eosinophils # (Manual) Basophils # (Manual) PT INR Fibrinogen dRVVT Confirm Interp Factor V Activity POC ABG pH POC ABG pCO2 POC ABG pO2 ABG pO2 ABG HCO3 ABG Base Excess ABG Hemoglobin Oxyhemoglobin Sodium Potassium 5.4 H D Chloride Carbon Dioxide 15 L BUN 110 H Creatinine 3.0 H Glucose POC Glucose 127 H 114 H Lactic Acid Calcium Ionized Calcium Phosphorus Magnesium Direct Bilirubin AST ALT Alkaline Phosphatase Lactate Dehydrogenase Troponin T C-Reactive Protein Total Protein Albumin Prealbumin Triglycerides Cholesterol LDL Cholesterol Direct HDL Cholesterol 25-OH Vitamin D Total PTH Intact Urine pH Urine WBC (Auto) Urine Creatinine Urine Total Protein Fluid Total Protein Vancomycin Trough Rheumatoid Factor Complement C4 Miscellaneous Test Crossmatch 10/21/16 10/21/16 10/22/16 05:54 23:46 05:18 WBC RBC Hgb Hct MCV MCH MCHC RDW Plt Count Lymph % (Auto) [place] % (Auto) Lymph # [place] # Baso # Seg Neutrophils % Seg Neuts % (Manual) Lymphocytes % (Manual) Monocytes % (Manual) Eosinophils % (Manual) Basophils % (Manual) Nucleated RBC % Seg Neutrophils # Seg Neutrophils # Man Lymphocytes # (Manual) Monocytes # (Manual) Eosinophils # (Manual) Basophils # (Manual) PT INR Fibrinogen dRVVT Confirm Interp Factor V Activity POC ABG pH POC ABG pCO2 POC ABG pO2 ABG pO2 ABG HCO3 ABG Base Excess ABG Hemoglobin Oxyhemoglobin Sodium Potassium Chloride Carbon Dioxide BUN Creatinine Glucose POC Glucose 119 H 108 H 109 H Lactic Acid Calcium Ionized Calcium Phosphorus Magnesium Direct Bilirubin AST ALT Alkaline Phosphatase Lactate Dehydrogenase Troponin T C-Reactive Protein Total Protein Albumin Prealbumin Triglycerides Cholesterol LDL Cholesterol Direct HDL Cholesterol 25-OH Vitamin D Total PTH Intact Urine pH Urine WBC (Auto) Urine Creatinine Urine Total Protein Fluid Total Protein Vancomycin Trough Rheumatoid Factor Complement C4 Miscellaneous Test Crossmatch 10/22/16 10/22/16 10/22/16 06:40 06:40 06:40 WBC 14.0 H RBC 2.03 L Hgb 7.0 L Hct 20.5 L MCV 98 H MCH 34 H MCHC 35 H RDW 17.8 H Plt Count Lymph % (Auto) [place] % (Auto) 9.9 H Lymph # [place] # 1.4 H Baso # 0.2 H Seg Neutrophils % 72.0 H Seg Neuts % (Manual) Lymphocytes % (Manual) Monocytes % (Manual) Eosinophils % (Manual) Basophils % (Manual) Nucleated RBC % Seg Neutrophils # 10.0 H Seg Neutrophils # Man Lymphocytes # (Manual) Monocytes # (Manual) Eosinophils # (Manual) Basophils # (Manual) PT INR Fibrinogen dRVVT Confirm Interp Factor V Activity POC ABG pH POC ABG pCO2 POC ABG pO2 ABG pO2 ABG HCO3 ABG Base Excess ABG Hemoglobin Oxyhemoglobin Sodium 130 L D Potassium Chloride 92.4 L Carbon Dioxide 20 L BUN 50 H Creatinine 1.6 H Glucose 589 H* POC Glucose Lactic Acid Calcium 7.8 L D Ionized Calcium Phosphorus Magnesium 1.60 L Direct Bilirubin AST ALT Alkaline Phosphatase Lactate Dehydrogenase Troponin T C-Reactive Protein Total Protein Albumin Prealbumin Triglycerides Cholesterol LDL Cholesterol Direct HDL Cholesterol 25-OH Vitamin D Total PTH Intact Urine pH Urine WBC (Auto) Urine Creatinine Urine Total Protein Fluid Total Protein Vancomycin Trough Rheumatoid Factor Complement C4 Miscellaneous Test Crossmatch 10/22/16 10/22/16 10/22/16 11:39 16:44 23:36 WBC RBC Hgb Hct MCV MCH MCHC RDW Plt Count Lymph % (Auto) [place] % (Auto) Lymph # [place] # Baso # Seg Neutrophils % Seg Neuts % (Manual) Lymphocytes % (Manual) Monocytes % (Manual) Eosinophils % (Manual) Basophils % (Manual) Nucleated RBC % Seg Neutrophils # Seg Neutrophils # Man Lymphocytes # (Manual) Monocytes # (Manual) Eosinophils # (Manual) Basophils # (Manual) PT INR Fibrinogen dRVVT Confirm Interp Factor V Activity POC ABG pH POC ABG pCO2 POC ABG pO2 ABG pO2 ABG HCO3 ABG Base Excess ABG Hemoglobin Oxyhemoglobin Sodium Potassium Chloride Carbon Dioxide BUN Creatinine Glucose POC Glucose 142 H 163 H 123 H Lactic Acid Calcium Ionized Calcium Phosphorus Magnesium Direct Bilirubin AST ALT Alkaline Phosphatase Lactate Dehydrogenase Troponin T C-Reactive Protein Total Protein Albumin Prealbumin Triglycerides Cholesterol LDL Cholesterol Direct HDL Cholesterol 25-OH Vitamin D Total PTH Intact Urine pH Urine WBC (Auto) Urine Creatinine Urine Total Protein Fluid Total Protein Vancomycin Trough Rheumatoid Factor Complement C4 Miscellaneous Test Crossmatch 10/23/16 10/23/16 10/23/16 04:58 06:00 12:12 WBC RBC Hgb Hct MCV MCH MCHC RDW Plt Count Lymph % (Auto) [place] % (Auto) Lymph # [place] # Baso # Seg Neutrophils % Seg Neuts % (Manual) Lymphocytes % (Manual) Monocytes % (Manual) Eosinophils % (Manual) Basophils % (Manual) Nucleated RBC % Seg Neutrophils # Seg Neutrophils # Man Lymphocytes # (Manual) Monocytes # (Manual) Eosinophils # (Manual) Basophils # (Manual) PT INR Fibrinogen dRVVT Confirm Interp Factor V Activity POC ABG pH POC ABG pCO2 POC ABG pO2 ABG pO2 ABG HCO3 ABG Base Excess ABG Hemoglobin Oxyhemoglobin Sodium 133 L Potassium 3.5 L Chloride 96.1 L Carbon Dioxide 18 L BUN 76 H Creatinine 2.1 H Glucose POC Glucose 133 H 138 H Lactic Acid Calcium 8.3 L Ionized Calcium Phosphorus Magnesium Direct Bilirubin AST ALT Alkaline Phosphatase Lactate Dehydrogenase Troponin T C-Reactive Protein Total Protein Albumin Prealbumin Triglycerides Cholesterol LDL Cholesterol Direct HDL Cholesterol 25-OH Vitamin D Total PTH Intact Urine pH Urine WBC (Auto) Urine Creatinine Urine Total Protein Fluid Total Protein Vancomycin Trough Rheumatoid Factor Complement C4 Miscellaneous Test Crossmatch 10/23/16 10/23/16 10/24/16 16:53 23:37 04:00 WBC RBC Hgb Hct MCV MCH MCHC RDW Plt Count Lymph % (Auto) [place] % (Auto) Lymph # [place] # Baso # Seg Neutrophils % Seg Neuts % (Manual) Lymphocytes % (Manual) Monocytes % (Manual) Eosinophils % (Manual) Basophils % (Manual) Nucleated RBC % Seg Neutrophils # Seg Neutrophils # Man Lymphocytes # (Manual) Monocytes # (Manual) Eosinophils # (Manual) Basophils # (Manual) PT INR Fibrinogen dRVVT Confirm Interp Factor V Activity POC ABG pH POC ABG pCO2 POC ABG pO2 ABG pO2 ABG HCO3 ABG Base Excess ABG Hemoglobin Oxyhemoglobin Sodium 131 L Potassium Chloride 94.5 L Carbon Dioxide 19 L BUN 97 H Creatinine 2.6 H Glucose 110 H POC Glucose 125 H 123 H Lactic Acid Calcium 8.3 L Ionized Calcium Phosphorus Magnesium Direct Bilirubin AST ALT Alkaline Phosphatase Lactate Dehydrogenase Troponin T C-Reactive Protein Total Protein Albumin Prealbumin Triglycerides Cholesterol LDL Cholesterol Direct HDL Cholesterol 25-OH Vitamin D Total PTH Intact Urine pH Urine WBC (Auto) Urine Creatinine Urine Total Protein Fluid Total Protein Vancomycin Trough Rheumatoid Factor Complement C4 Miscellaneous Test Crossmatch 10/24/16 10/24/16 10/24/16 07:49 11:39 17:52 WBC RBC Hgb 6.0 L Hct 19.7 L* MCV MCH MCHC RDW Plt Count Lymph % (Auto) [place] % (Auto) Lymph # [place] # Baso # Seg Neutrophils % Seg Neuts % (Manual) Lymphocytes % (Manual) Monocytes % (Manual) Eosinophils % (Manual) Basophils % (Manual) Nucleated RBC % Seg Neutrophils # Seg Neutrophils # Man Lymphocytes # (Manual) Monocytes # (Manual) Eosinophils # (Manual) Basophils # (Manual) PT INR Fibrinogen dRVVT Confirm Interp Factor V Activity POC ABG pH POC ABG pCO2 POC ABG pO2 ABG pO2 ABG HCO3 ABG Base Excess ABG Hemoglobin Oxyhemoglobin Sodium Potassium Chloride Carbon Dioxide BUN Creatinine Glucose POC Glucose 106 H 158 H Lactic Acid Calcium Ionized Calcium Phosphorus Magnesium Direct Bilirubin AST ALT Alkaline Phosphatase Lactate Dehydrogenase Troponin T C-Reactive Protein Total Protein Albumin Prealbumin Triglycerides Cholesterol LDL Cholesterol Direct HDL Cholesterol 25-OH Vitamin D Total PTH Intact Urine pH Urine WBC (Auto) Urine Creatinine Urine Total Protein Fluid Total Protein Vancomycin Trough Rheumatoid Factor Complement C4 Miscellaneous Test Crossmatch 10/24/16 10/24/16 10/24/16 20:00 22:27 Unknown WBC RBC Hgb 9.4 L D Hct 27.5 L D MCV MCH MCHC RDW Plt Count Lymph % (Auto) [place] % (Auto) Lymph # [place] # Baso # Seg Neutrophils % Seg Neuts % (Manual) Lymphocytes % (Manual) Monocytes % (Manual) Eosinophils % (Manual) Basophils % (Manual) Nucleated RBC % Seg Neutrophils # Seg Neutrophils # Man Lymphocytes # (Manual) Monocytes # (Manual) Eosinophils # (Manual) Basophils # (Manual) PT INR Fibrinogen dRVVT Confirm Interp Factor V Activity POC ABG pH POC ABG pCO2 POC ABG pO2 ABG pO2 ABG HCO3 ABG Base Excess ABG Hemoglobin Oxyhemoglobin Sodium Potassium Chloride Carbon Dioxide BUN Creatinine Glucose POC Glucose 125 H Lactic Acid Calcium Ionized Calcium Phosphorus Magnesium Direct Bilirubin AST ALT Alkaline Phosphatase Lactate Dehydrogenase Troponin T C-Reactive Protein Total Protein Albumin Prealbumin Triglycerides Cholesterol LDL Cholesterol Direct HDL Cholesterol 25-OH Vitamin D Total PTH Intact Urine pH Urine WBC (Auto) Urine Creatinine Urine Total Protein Fluid Total Protein Vancomycin Trough Rheumatoid Factor Complement C4 Miscellaneous Test Crossmatch See Detail 10/25/16 10/25/16 10/25/16 04:00 04:00 04:00 WBC 14.2 H RBC 2.98 L Hgb 9.0 L Hct 26.2 L MCV MCH MCHC RDW 16.6 H Plt Count Lymph % (Auto) [place] % (Auto) 10.7 H Lymph # [place] # 1.5 H Baso # Seg Neutrophils % 73.6 H Seg Neuts % (Manual) Lymphocytes % (Manual) Monocytes % (Manual) Eosinophils % (Manual) Basophils % (Manual) Nucleated RBC % Seg Neutrophils # 10.5 H Seg Neutrophils # Man Lymphocytes # (Manual) Monocytes # (Manual) Eosinophils # (Manual) Basophils # (Manual) PT INR Fibrinogen dRVVT Confirm Interp Factor V Activity POC ABG pH POC ABG pCO2 POC ABG pO2 ABG pO2 ABG HCO3 ABG Base Excess ABG Hemoglobin Oxyhemoglobin Sodium 132 L Potassium Chloride 94.7 L Carbon Dioxide BUN 51 H Creatinine 1.6 H Glucose 130 H POC Glucose Lactic Acid Calcium 8.3 L Ionized Calcium Phosphorus 1.60 L D Magnesium Direct Bilirubin AST ALT Alkaline Phosphatase Lactate Dehydrogenase Troponin T C-Reactive Protein Total Protein Albumin Prealbumin Triglycerides Cholesterol LDL Cholesterol Direct HDL Cholesterol 25-OH Vitamin D Total PTH Intact Urine pH Urine WBC (Auto) Urine Creatinine Urine Total Protein Fluid Total Protein Vancomycin Trough Rheumatoid Factor Complement C4 Miscellaneous Test Crossmatch 10/25/16 10/25/16 10/25/16 04:32 11:48 17:22 WBC RBC Hgb Hct MCV MCH MCHC RDW Plt Count Lymph % (Auto) [place] % (Auto) Lymph # [place] # Baso # Seg Neutrophils % Seg Neuts % (Manual) Lymphocytes % (Manual) Monocytes % (Manual) Eosinophils % (Manual) Basophils % (Manual) Nucleated RBC % Seg Neutrophils # Seg Neutrophils # Man Lymphocytes # (Manual) Monocytes # (Manual) Eosinophils # (Manual) Basophils # (Manual) PT INR Fibrinogen dRVVT Confirm Interp Factor V Activity POC ABG pH POC ABG pCO2 POC ABG pO2 ABG pO2 ABG HCO3 ABG Base Excess ABG Hemoglobin Oxyhemoglobin Sodium Potassium Chloride Carbon Dioxide BUN Creatinine Glucose POC Glucose 124 H 171 H 120 H Lactic Acid Calcium Ionized Calcium Phosphorus Magnesium Direct Bilirubin AST ALT Alkaline Phosphatase Lactate Dehydrogenase Troponin T C-Reactive Protein Total Protein Albumin Prealbumin Triglycerides Cholesterol LDL Cholesterol Direct HDL Cholesterol 25-OH Vitamin D Total PTH Intact Urine pH Urine WBC (Auto) Urine Creatinine Urine Total Protein Fluid Total Protein Vancomycin Trough Rheumatoid Factor Complement C4 Miscellaneous Test Crossmatch 10/26/16 10/26/16 10/26/16 04:54 07:06 07:06 WBC 16.9 H RBC 3.06 L Hgb 9.1 L Hct 26.9 L MCV MCH MCHC RDW 16.9 H Plt Count Lymph % (Auto) [place] % (Auto) Lymph # [place] # Baso # Seg Neutrophils % Seg Neuts % (Manual) 71.0 H Lymphocytes % (Manual) 5.0 L Monocytes % (Manual) 12.0 H Eosinophils % (Manual) Basophils % (Manual) Nucleated RBC % Seg Neutrophils # Seg Neutrophils # Man 12.0 H Lymphocytes # (Manual) 0.8 L Monocytes # (Manual) 2.0 H Eosinophils # (Manual) Basophils # (Manual) PT INR Fibrinogen dRVVT Confirm Interp Factor V Activity POC ABG pH POC ABG pCO2 POC ABG pO2 ABG pO2 ABG HCO3 ABG Base Excess ABG Hemoglobin Oxyhemoglobin Sodium 135 L Potassium Chloride 97.1 L Carbon Dioxide BUN 73 H Creatinine 2.2 H Glucose 117 H POC Glucose 123 H Lactic Acid Calcium Ionized Calcium Phosphorus 1.70 L Magnesium Direct Bilirubin AST ALT Alkaline Phosphatase Lactate Dehydrogenase Troponin T C-Reactive Protein Total Protein Albumin Prealbumin Triglycerides Cholesterol LDL Cholesterol Direct HDL Cholesterol 25-OH Vitamin D Total PTH Intact Urine pH Urine WBC (Auto) Urine Creatinine Urine Total Protein Fluid Total Protein Vancomycin Trough Rheumatoid Factor Complement C4 Miscellaneous Test Crossmatch 10/26/16 10/26/16 10/26/16 12:12 17:29 23:42 WBC RBC Hgb Hct MCV MCH MCHC RDW Plt Count Lymph % (Auto) [place] % (Auto) Lymph # [place] # Baso # Seg Neutrophils % Seg Neuts % (Manual) Lymphocytes % (Manual) Monocytes % (Manual) Eosinophils % (Manual) Basophils % (Manual) Nucleated RBC % Seg Neutrophils # Seg Neutrophils # Man Lymphocytes # (Manual) Monocytes # (Manual) Eosinophils # (Manual) Basophils # (Manual) PT INR Fibrinogen dRVVT Confirm Interp Factor V Activity POC ABG pH POC ABG pCO2 POC ABG pO2 ABG pO2 ABG HCO3 ABG Base Excess ABG Hemoglobin Oxyhemoglobin Sodium Potassium Chloride Carbon Dioxide BUN Creatinine Glucose POC Glucose 126 H 161 H 118 H Lactic Acid Calcium Ionized Calcium Phosphorus Magnesium Direct Bilirubin AST ALT Alkaline Phosphatase Lactate Dehydrogenase Troponin T C-Reactive Protein Total Protein Albumin Prealbumin Triglycerides Cholesterol LDL Cholesterol Direct HDL Cholesterol 25-OH Vitamin D Total PTH Intact Urine pH Urine WBC (Auto) Urine Creatinine Urine Total Protein Fluid Total Protein Vancomycin Trough Rheumatoid Factor Complement C4 Miscellaneous Test Crossmatch 10/27/16 10/27/16 10/27/16 05:03 06:30 06:30 WBC 13.9 H RBC 3.09 L Hgb 9.2 L Hct 27.5 L MCV MCH MCHC RDW 17.0 H Plt Count Lymph % (Auto) [place] % (Auto) Lymph # [place] # Baso # Seg Neutrophils % Seg Neuts % (Manual) 78.0 H Lymphocytes % (Manual) Monocytes % (Manual) Eosinophils % (Manual) Basophils % (Manual) Nucleated RBC % 2.0 H Seg Neutrophils # Seg Neutrophils # Man 10.8 H Lymphocytes # (Manual) Monocytes # (Manual) 1.0 H Eosinophils # (Manual) Basophils # (Manual) PT INR Fibrinogen dRVVT Confirm Interp Factor V Activity POC ABG pH POC ABG pCO2 POC ABG pO2 ABG pO2 ABG HCO3 ABG Base Excess ABG Hemoglobin Oxyhemoglobin Sodium Potassium Chloride Carbon Dioxide BUN 40 H Creatinine 1.5 H Glucose 135 H POC Glucose 107 H Lactic Acid Calcium 8.3 L Ionized Calcium Phosphorus 1.30 L D Magnesium Direct Bilirubin AST ALT Alkaline Phosphatase Lactate Dehydrogenase Troponin T C-Reactive Protein Total Protein Albumin Prealbumin Triglycerides Cholesterol LDL Cholesterol Direct HDL Cholesterol 25-OH Vitamin D Total PTH Intact Urine pH Urine WBC (Auto) Urine Creatinine Urine Total Protein Fluid Total Protein Vancomycin Trough Rheumatoid Factor Complement C4 Miscellaneous Test Crossmatch 10/27/16 10/27/16 10/27/16 13:27 18:07 23:40 WBC RBC Hgb Hct MCV MCH MCHC RDW Plt Count Lymph % (Auto) [place] % (Auto) Lymph # [place] # Baso # Seg Neutrophils % Seg Neuts % (Manual) Lymphocytes % (Manual) Monocytes % (Manual) Eosinophils % (Manual) Basophils % (Manual) Nucleated RBC % Seg Neutrophils # Seg Neutrophils # Man Lymphocytes # (Manual) Monocytes # (Manual) Eosinophils # (Manual) Basophils # (Manual) PT INR Fibrinogen dRVVT Confirm Interp Factor V Activity POC ABG pH POC ABG pCO2 POC ABG pO2 ABG pO2 ABG HCO3 ABG Base Excess ABG Hemoglobin Oxyhemoglobin Sodium Potassium Chloride Carbon Dioxide BUN Creatinine Glucose POC Glucose 117 H 121 H 118 H Lactic Acid Calcium Ionized Calcium Phosphorus Magnesium Direct Bilirubin AST ALT Alkaline Phosphatase Lactate Dehydrogenase Troponin T C-Reactive Protein Total Protein Albumin Prealbumin Triglycerides Cholesterol LDL Cholesterol Direct HDL Cholesterol 25-OH Vitamin D Total PTH Intact Urine pH Urine WBC (Auto) Urine Creatinine Urine Total Protein Fluid Total Protein Vancomycin Trough Rheumatoid Factor Complement C4 Miscellaneous Test Crossmatch 10/28/16 10/28/16 10/28/16 05:48 06:45 06:45 WBC 14.7 H RBC 3.05 L Hgb 9.0 L Hct 26.9 L MCV MCH MCHC RDW 16.8 H Plt Count Lymph % (Auto) 8.2 L [place] % (Auto) 8.4 H Lymph # [place] # 1.2 H Baso # Seg Neutrophils % 81.9 H Seg Neuts % (Manual) Lymphocytes % (Manual) Monocytes % (Manual) Eosinophils % (Manual) Basophils % (Manual) Nucleated RBC % Seg Neutrophils # 12.1 H Seg Neutrophils # Man Lymphocytes # (Manual) Monocytes # (Manual) Eosinophils # (Manual) Basophils # (Manual) PT INR Fibrinogen dRVVT Confirm Interp Factor V Activity POC ABG pH POC ABG pCO2 POC ABG pO2 ABG pO2 ABG HCO3 ABG Base Excess ABG Hemoglobin Oxyhemoglobin Sodium Potassium Chloride Carbon Dioxide BUN 60 H Creatinine 1.9 H Glucose 120 H POC Glucose 114 H Lactic Acid Calcium Ionized Calcium Phosphorus Magnesium Direct Bilirubin AST ALT Alkaline Phosphatase Lactate Dehydrogenase Troponin T C-Reactive Protein Total Protein Albumin Prealbumin Triglycerides Cholesterol LDL Cholesterol Direct HDL Cholesterol 25-OH Vitamin D Total PTH Intact Urine pH Urine WBC (Auto) Urine Creatinine Urine Total Protein Fluid Total Protein Vancomycin Trough Rheumatoid Factor Complement C4 Miscellaneous Test Crossmatch 10/28/16 10/28/16 10/29/16 17:08 23:50 05:10 WBC RBC Hgb Hct MCV MCH MCHC RDW Plt Count Lymph % (Auto) [place] % (Auto) Lymph # [place] # Baso # Seg Neutrophils % Seg Neuts % (Manual) Lymphocytes % (Manual) Monocytes % (Manual) Eosinophils % (Manual) Basophils % (Manual) Nucleated RBC % Seg Neutrophils # Seg Neutrophils # Man Lymphocytes # (Manual) Monocytes # (Manual) Eosinophils # (Manual) Basophils # (Manual) PT INR Fibrinogen dRVVT Confirm Interp Factor V Activity POC ABG pH POC ABG pCO2 POC ABG pO2 ABG pO2 ABG HCO3 ABG Base Excess ABG Hemoglobin Oxyhemoglobin Sodium Potassium Chloride Carbon Dioxide BUN Creatinine Glucose POC Glucose 109 H 110 H 124 H Lactic Acid Calcium Ionized Calcium Phosphorus Magnesium Direct Bilirubin AST ALT Alkaline Phosphatase Lactate Dehydrogenase Troponin T C-Reactive Protein Total Protein Albumin Prealbumin Triglycerides Cholesterol LDL Cholesterol Direct HDL Cholesterol 25-OH Vitamin D Total PTH Intact Urine pH Urine WBC (Auto) Urine Creatinine Urine Total Protein Fluid Total Protein Vancomycin Trough Rheumatoid Factor Complement C4 Miscellaneous Test Crossmatch 10/29/16 10/29/16 10/29/16 07:45 07:45 12:19 WBC 14.7 H RBC 3.15 L Hgb 9.3 L Hct 28.9 L MCV MCH MCHC RDW 17.0 H Plt Count Lymph % (Auto) 11.9 L [place] % (Auto) 8.6 H Lymph # [place] # 1.3 H Baso # Seg Neutrophils % 78.1 H Seg Neuts % (Manual) Lymphocytes % (Manual) Monocytes % (Manual) Eosinophils % (Manual) Basophils % (Manual) Nucleated RBC % Seg Neutrophils # 11.4 H Seg Neutrophils # Man Lymphocytes # (Manual) Monocytes # (Manual) Eosinophils # (Manual) Basophils # (Manual) PT INR Fibrinogen dRVVT Confirm Interp Factor V Activity POC ABG pH POC ABG pCO2 POC ABG pO2 ABG pO2 ABG HCO3 ABG Base Excess ABG Hemoglobin Oxyhemoglobin Sodium Potassium 5.1 H Chloride Carbon Dioxide 19 L BUN 78 H Creatinine 2.2 H Glucose 116 H POC Glucose 118 H Lactic Acid Calcium Ionized Calcium Phosphorus Magnesium Direct Bilirubin AST ALT Alkaline Phosphatase Lactate Dehydrogenase Troponin T C-Reactive Protein Total Protein Albumin Prealbumin Triglycerides Cholesterol LDL Cholesterol Direct HDL Cholesterol 25-OH Vitamin D Total PTH Intact Urine pH Urine WBC (Auto) Urine Creatinine Urine Total Protein Fluid Total Protein Vancomycin Trough Rheumatoid Factor Complement C4 Miscellaneous Test Crossmatch 10/29/16 10/30/16 10/30/16 17:49 01:52 03:28 WBC RBC Hgb Hct MCV MCH MCHC RDW Plt Count Lymph % (Auto) [place] % (Auto) Lymph # [place] # Baso # Seg Neutrophils % Seg Neuts % (Manual) Lymphocytes % (Manual) Monocytes % (Manual) Eosinophils % (Manual) Basophils % (Manual) Nucleated RBC % Seg Neutrophils # Seg Neutrophils # Man Lymphocytes # (Manual) Monocytes # (Manual) Eosinophils # (Manual) Basophils # (Manual) PT INR Fibrinogen dRVVT Confirm Interp Factor V Activity POC ABG pH POC ABG pCO2 POC ABG pO2 ABG pO2 ABG HCO3 ABG Base Excess ABG Hemoglobin Oxyhemoglobin Sodium Potassium 5.4 H Chloride 97.5 L Carbon Dioxide 19 L BUN 90 H Creatinine 2.5 H Glucose POC Glucose 120 H 129 H Lactic Acid Calcium Ionized Calcium Phosphorus 5.20 H Magnesium Direct Bilirubin AST ALT Alkaline Phosphatase Lactate Dehydrogenase Troponin T C-Reactive Protein Total Protein Albumin Prealbumin Triglycerides Cholesterol LDL Cholesterol Direct HDL Cholesterol 25-OH Vitamin D Total PTH Intact Urine pH Urine WBC (Auto) Urine Creatinine Urine Total Protein Fluid Total Protein Vancomycin Trough Rheumatoid Factor Complement C4 Miscellaneous Test Crossmatch 10/30/16 10/30/16 10/30/16 03:28 08:19 08:19 WBC 11.6 H 15.9 H RBC 2.75 L 2.82 L Hgb 7.9 L 8.3 L Hct 24.2 L 25.2 L MCV MCH MCHC RDW 16.7 H 17.2 H Plt Count Lymph % (Auto) [place] % (Auto) 9.8 H Lymph # [place] # 1.1 H Baso # Seg Neutrophils % 74.2 H Seg Neuts % (Manual) Lymphocytes % (Manual) Monocytes % (Manual) Eosinophils % (Manual) Basophils % (Manual) Nucleated RBC % Seg Neutrophils # 8.6 H Seg Neutrophils # Man Lymphocytes # (Manual) Monocytes # (Manual) Eosinophils # (Manual) Basophils # (Manual) PT INR Fibrinogen dRVVT Confirm Interp Factor V Activity POC ABG pH POC ABG pCO2 POC ABG pO2 ABG pO2 ABG HCO3 ABG Base Excess ABG Hemoglobin Oxyhemoglobin Sodium Potassium 5.3 H Chloride 97.4 L Carbon Dioxide 19 L BUN 93 H Creatinine 2.6 H Glucose POC Glucose Lactic Acid Calcium Ionized Calcium Phosphorus Magnesium Direct Bilirubin AST ALT Alkaline Phosphatase Lactate Dehydrogenase Troponin T C-Reactive Protein Total Protein Albumin Prealbumin Triglycerides Cholesterol LDL Cholesterol Direct HDL Cholesterol 25-OH Vitamin D Total PTH Intact Urine pH Urine WBC (Auto) Urine Creatinine Urine Total Protein Fluid Total Protein Vancomycin Trough Rheumatoid Factor Complement C4 Miscellaneous Test Crossmatch 10/30/16 10/30/16 10/31/16 17:11 23:56 00:40 WBC RBC Hgb Hct MCV MCH MCHC RDW Plt Count Lymph % (Auto) [place] % (Auto) Lymph # [place] # Baso # Seg Neutrophils % Seg Neuts % (Manual) Lymphocytes % (Manual) Monocytes % (Manual) Eosinophils % (Manual) Basophils % (Manual) Nucleated RBC % Seg Neutrophils # Seg Neutrophils # Man Lymphocytes # (Manual) Monocytes # (Manual) Eosinophils # (Manual) Basophils # (Manual) PT INR Fibrinogen dRVVT Confirm Interp Factor V Activity POC ABG pH POC ABG pCO2 POC ABG pO2 ABG pO2 ABG HCO3 ABG Base Excess ABG Hemoglobin Oxyhemoglobin Sodium Potassium Chloride Carbon Dioxide BUN Creatinine Glucose POC Glucose 106 H 117 H 120 H Lactic Acid Calcium Ionized Calcium Phosphorus Magnesium Direct Bilirubin AST ALT Alkaline Phosphatase Lactate Dehydrogenase Troponin T C-Reactive Protein Total Protein Albumin Prealbumin Triglycerides Cholesterol LDL Cholesterol Direct HDL Cholesterol 25-OH Vitamin D Total PTH Intact Urine pH Urine WBC (Auto) Urine Creatinine Urine Total Protein Fluid Total Protein Vancomycin Trough Rheumatoid Factor Complement C4 Miscellaneous Test Crossmatch 10/31/16 10/31/16 10/31/16 05:43 07:15 07:15 WBC 12.1 H RBC 2.63 L Hgb 7.7 L Hct 23.3 L MCV MCH MCHC RDW 16.7 H Plt Count Lymph % (Auto) 11.7 L [place] % (Auto) 7.7 H Lymph # [place] # 0.9 H Baso # Seg Neutrophils % 78.0 H Seg Neuts % (Manual) Lymphocytes % (Manual) Monocytes % (Manual) Eosinophils % (Manual) Basophils % (Manual) Nucleated RBC % Seg Neutrophils # 9.4 H Seg Neutrophils # Man Lymphocytes # (Manual) Monocytes # (Manual) Eosinophils # (Manual) Basophils # (Manual) PT INR Fibrinogen dRVVT Confirm Interp Factor V Activity POC ABG pH POC ABG pCO2 POC ABG pO2 ABG pO2 ABG HCO3 ABG Base Excess ABG Hemoglobin Oxyhemoglobin Sodium Potassium Chloride 96.4 L Carbon Dioxide 21 L BUN 99 H Creatinine 2.6 H Glucose 144 H POC Glucose 125 H Lactic Acid Calcium Ionized Calcium Phosphorus 4.80 H Magnesium Direct Bilirubin AST ALT Alkaline Phosphatase Lactate Dehydrogenase Troponin T C-Reactive Protein Total Protein Albumin Prealbumin Triglycerides Cholesterol LDL Cholesterol Direct HDL Cholesterol 25-OH Vitamin D Total PTH Intact Urine pH Urine WBC (Auto) Urine Creatinine Urine Total Protein Fluid Total Protein Vancomycin Trough Rheumatoid Factor Complement C4 Miscellaneous Test Crossmatch 10/31/16 10/31/16 11/01/16 11:46 18:34 00:20 WBC RBC Hgb Hct MCV MCH MCHC RDW Plt Count Lymph % (Auto) [place] % (Auto) Lymph # [place] # Baso # Seg Neutrophils % Seg Neuts % (Manual) Lymphocytes % (Manual) Monocytes % (Manual) Eosinophils % (Manual) Basophils % (Manual) Nucleated RBC % Seg Neutrophils # Seg Neutrophils # Man Lymphocytes # (Manual) Monocytes # (Manual) Eosinophils # (Manual) Basophils # (Manual) PT INR Fibrinogen dRVVT Confirm Interp Factor V Activity POC ABG pH POC ABG pCO2 POC ABG pO2 ABG pO2 ABG HCO3 ABG Base Excess ABG Hemoglobin Oxyhemoglobin Sodium Potassium Chloride Carbon Dioxide BUN Creatinine Glucose POC Glucose 159 H 140 H 132 H Lactic Acid Calcium Ionized Calcium Phosphorus Magnesium Direct Bilirubin AST ALT Alkaline Phosphatase Lactate Dehydrogenase Troponin T C-Reactive Protein Total Protein Albumin Prealbumin Triglycerides Cholesterol LDL Cholesterol Direct HDL Cholesterol 25-OH Vitamin D Total PTH Intact Urine pH Urine WBC (Auto) Urine Creatinine Urine Total Protein Fluid Total Protein Vancomycin Trough Rheumatoid Factor Complement C4 Miscellaneous Test Crossmatch 11/01/16 11/01/16 11/01/16 04:55 04:55 06:11 WBC 11.2 H RBC 2.68 L Hgb 7.5 L Hct 23.7 L MCV MCH MCHC RDW 16.1 H Plt Count Lymph % (Auto) [place] % (Auto) 9.8 H Lymph # [place] # 1.1 H Baso # Seg Neutrophils % 70.8 H Seg Neuts % (Manual) Lymphocytes % (Manual) Monocytes % (Manual) Eosinophils % (Manual) Basophils % (Manual) Nucleated RBC % Seg Neutrophils # 7.9 H Seg Neutrophils # Man Lymphocytes # (Manual) Monocytes # (Manual) Eosinophils # (Manual) Basophils # (Manual) PT INR Fibrinogen dRVVT Confirm Interp Factor V Activity POC ABG pH POC ABG pCO2 POC ABG pO2 ABG pO2 ABG HCO3 ABG Base Excess ABG Hemoglobin Oxyhemoglobin Sodium Potassium 3.3 L D Chloride Carbon Dioxide BUN 61 H Creatinine 1.9 H Glucose 114 H POC Glucose 115 H Lactic Acid Calcium Ionized Calcium Phosphorus 1.80 L D Magnesium Direct Bilirubin AST ALT Alkaline Phosphatase Lactate Dehydrogenase Troponin T C-Reactive Protein Total Protein Albumin Prealbumin Triglycerides Cholesterol LDL Cholesterol Direct HDL Cholesterol 25-OH Vitamin D Total PTH Intact Urine pH Urine WBC (Auto) Urine Creatinine Urine Total Protein Fluid Total Protein Vancomycin Trough Rheumatoid Factor Complement C4 Miscellaneous Test Crossmatch 11/01/16 11/01/16 11/01/16 12:29 18:23 23:58 WBC RBC Hgb Hct MCV MCH MCHC RDW Plt Count Lymph % (Auto) [place] % (Auto) Lymph # [place] # Baso # Seg Neutrophils % Seg Neuts % (Manual) Lymphocytes % (Manual) Monocytes % (Manual) Eosinophils % (Manual) Basophils % (Manual) Nucleated RBC % Seg Neutrophils # Seg Neutrophils # Man Lymphocytes # (Manual) Monocytes # (Manual) Eosinophils # (Manual) Basophils # (Manual) PT INR Fibrinogen dRVVT Confirm Interp Factor V Activity POC ABG pH POC ABG pCO2 POC ABG pO2 ABG pO2 ABG HCO3 ABG Base Excess ABG Hemoglobin Oxyhemoglobin Sodium Potassium Chloride Carbon Dioxide BUN Creatinine Glucose POC Glucose 142 H 143 H 128 H Lactic Acid Calcium Ionized Calcium Phosphorus Magnesium Direct Bilirubin AST ALT Alkaline Phosphatase Lactate Dehydrogenase Troponin T C-Reactive Protein Total Protein Albumin Prealbumin Triglycerides Cholesterol LDL Cholesterol Direct HDL Cholesterol 25-OH Vitamin D Total PTH Intact Urine pH Urine WBC (Auto) Urine Creatinine Urine Total Protein Fluid Total Protein Vancomycin Trough Rheumatoid Factor Complement C4 Miscellaneous Test Crossmatch 11/02/16 11/02/16 11/02/16 04:16 05:29 11:58 WBC RBC Hgb Hct MCV MCH MCHC RDW Plt Count Lymph % (Auto) [place] % (Auto) Lymph # [place] # Baso # Seg Neutrophils % Seg Neuts % (Manual) Lymphocytes % (Manual) Monocytes % (Manual) Eosinophils % (Manual) Basophils % (Manual) Nucleated RBC % Seg Neutrophils # Seg Neutrophils # Man Lymphocytes # (Manual) Monocytes # (Manual) Eosinophils # (Manual) Basophils # (Manual) PT INR Fibrinogen dRVVT Confirm Interp Factor V Activity POC ABG pH POC ABG pCO2 POC ABG pO2 ABG pO2 ABG HCO3 ABG Base Excess ABG Hemoglobin Oxyhemoglobin Sodium Potassium 3.1 L Chloride Carbon Dioxide BUN 73 H Creatinine 2.3 H Glucose 112 H POC Glucose 135 H 149 H Lactic Acid Calcium Ionized Calcium Phosphorus Magnesium Direct Bilirubin AST ALT Alkaline Phosphatase Lactate Dehydrogenase Troponin T C-Reactive Protein Total Protein Albumin Prealbumin Triglycerides Cholesterol LDL Cholesterol Direct HDL Cholesterol 25-OH Vitamin D Total PTH Intact Urine pH Urine WBC (Auto) Urine Creatinine Urine Total Protein Fluid Total Protein Vancomycin Trough Rheumatoid Factor Complement C4 Miscellaneous Test Crossmatch 11/02/16 11/02/16 11/03/16 17:42 22:54 06:00 WBC RBC Hgb Hct MCV MCH MCHC RDW Plt Count Lymph % (Auto) [place] % (Auto) Lymph # [place] # Baso # Seg Neutrophils % Seg Neuts % (Manual) Lymphocytes % (Manual) Monocytes % (Manual) Eosinophils % (Manual) Basophils % (Manual) Nucleated RBC % Seg Neutrophils # Seg Neutrophils # Man Lymphocytes # (Manual) Monocytes # (Manual) Eosinophils # (Manual) Basophils # (Manual) PT INR Fibrinogen dRVVT Confirm Interp Factor V Activity POC ABG pH POC ABG pCO2 POC ABG pO2 ABG pO2 ABG HCO3 ABG Base Excess ABG Hemoglobin Oxyhemoglobin Sodium Potassium Chloride 96.7 L Carbon Dioxide BUN 41 H Creatinine 1.5 H Glucose 145 H POC Glucose 182 H 115 H Lactic Acid Calcium Ionized Calcium Phosphorus 1.60 L D Magnesium 1.50 L Direct Bilirubin AST ALT Alkaline Phosphatase Lactate Dehydrogenase Troponin T C-Reactive Protein Total Protein Albumin Prealbumin Triglycerides Cholesterol LDL Cholesterol Direct HDL Cholesterol 25-OH Vitamin D Total PTH Intact Urine pH Urine WBC (Auto) Urine Creatinine Urine Total Protein Fluid Total Protein Vancomycin Trough Rheumatoid Factor Complement C4 Miscellaneous Test Crossmatch 11/03/16 11/03/16 11/03/16 11:53 17:45 23:37 WBC RBC Hgb Hct MCV MCH MCHC RDW Plt Count Lymph % (Auto) [place] % (Auto) Lymph # [place] # Baso # Seg Neutrophils % Seg Neuts % (Manual) Lymphocytes % (Manual) Monocytes % (Manual) Eosinophils % (Manual) Basophils % (Manual) Nucleated RBC % Seg Neutrophils # Seg Neutrophils # Man Lymphocytes # (Manual) Monocytes # (Manual) Eosinophils # (Manual) Basophils # (Manual) PT INR Fibrinogen dRVVT Confirm Interp Factor V Activity POC ABG pH POC ABG pCO2 POC ABG pO2 ABG pO2 ABG HCO3 ABG Base Excess ABG Hemoglobin Oxyhemoglobin Sodium Potassium Chloride Carbon Dioxide BUN Creatinine Glucose POC Glucose 131 H 134 H 113 H Lactic Acid Calcium Ionized Calcium Phosphorus Magnesium Direct Bilirubin AST ALT Alkaline Phosphatase Lactate Dehydrogenase Troponin T C-Reactive Protein Total Protein Albumin Prealbumin Triglycerides Cholesterol LDL Cholesterol Direct HDL Cholesterol 25-OH Vitamin D Total PTH Intact Urine pH Urine WBC (Auto) Urine Creatinine Urine Total Protein Fluid Total Protein Vancomycin Trough Rheumatoid Factor Complement C4 Miscellaneous Test Crossmatch 11/04/16 11/04/16 11/04/16 05:41 06:00 12:10 WBC RBC Hgb Hct MCV MCH MCHC RDW Plt Count Lymph % (Auto) [place] % (Auto) Lymph # [place] # Baso # Seg Neutrophils % Seg Neuts % (Manual) Lymphocytes % (Manual) Monocytes % (Manual) Eosinophils % (Manual) Basophils % (Manual) Nucleated RBC % Seg Neutrophils # Seg Neutrophils # Man Lymphocytes # (Manual) Monocytes # (Manual) Eosinophils # (Manual) Basophils # (Manual) PT INR Fibrinogen dRVVT Confirm Interp Factor V Activity POC ABG pH POC ABG pCO2 POC ABG pO2 ABG pO2 ABG HCO3 ABG Base Excess ABG Hemoglobin Oxyhemoglobin Sodium Potassium Chloride 96.7 L Carbon Dioxide BUN 52 H Creatinine 1.9 H Glucose 126 H POC Glucose 137 H 191 H Lactic Acid Calcium Ionized Calcium Phosphorus Magnesium Direct Bilirubin AST ALT Alkaline Phosphatase Lactate Dehydrogenase Troponin T C-Reactive Protein Total Protein Albumin Prealbumin Triglycerides Cholesterol LDL Cholesterol Direct HDL Cholesterol 25-OH Vitamin D Total PTH Intact Urine pH Urine WBC (Auto) Urine Creatinine Urine Total Protein Fluid Total Protein Vancomycin Trough Rheumatoid Factor Complement C4 Miscellaneous Test Crossmatch 11/04/16 11/05/16 11/05/16 22:57 03:10 05:10 WBC RBC Hgb Hct MCV MCH MCHC RDW Plt Count Lymph % (Auto) [place] % (Auto) Lymph # [place] # Baso # Seg Neutrophils % Seg Neuts % (Manual) Lymphocytes % (Manual) Monocytes % (Manual) Eosinophils % (Manual) Basophils % (Manual) Nucleated RBC % Seg Neutrophils # Seg Neutrophils # Man Lymphocytes # (Manual) Monocytes # (Manual) Eosinophils # (Manual) Basophils # (Manual) PT INR Fibrinogen dRVVT Confirm Interp Factor V Activity POC ABG pH POC ABG pCO2 POC ABG pO2 ABG pO2 ABG HCO3 ABG Base Excess ABG Hemoglobin Oxyhemoglobin Sodium 136 L Potassium Chloride 97.2 L Carbon Dioxide BUN 32 H Creatinine 1.3 H Glucose 123 H POC Glucose 125 H 108 H Lactic Acid Calcium 7.8 L Ionized Calcium Phosphorus Magnesium Direct Bilirubin AST ALT Alkaline Phosphatase Lactate Dehydrogenase Troponin T C-Reactive Protein Total Protein Albumin Prealbumin Triglycerides Cholesterol LDL Cholesterol Direct HDL Cholesterol 25-OH Vitamin D Total PTH Intact Urine pH Urine WBC (Auto) Urine Creatinine Urine Total Protein Fluid Total Protein Vancomycin Trough Rheumatoid Factor Complement C4 Miscellaneous Test Crossmatch 11/05/16 11/05/16 11/05/16 12:23 13:09 13:25 WBC RBC Hgb Hct MCV MCH MCHC RDW Plt Count Lymph % (Auto) [place] % (Auto) Lymph # [place] # Baso # Seg Neutrophils % Seg Neuts % (Manual) Lymphocytes % (Manual) Monocytes % (Manual) Eosinophils % (Manual) Basophils % (Manual) Nucleated RBC % Seg Neutrophils # Seg Neutrophils # Man Lymphocytes # (Manual) Monocytes # (Manual) Eosinophils # (Manual) Basophils # (Manual) PT INR Fibrinogen dRVVT Confirm Interp Factor V Activity POC ABG pH POC ABG pCO2 POC ABG pO2 ABG pO2 ABG HCO3 ABG Base Excess ABG Hemoglobin Oxyhemoglobin Sodium Potassium Chloride Carbon Dioxide BUN Creatinine Glucose POC Glucose 124 H Lactic Acid Calcium Ionized Calcium Phosphorus Magnesium Direct Bilirubin AST ALT Alkaline Phosphatase Lactate Dehydrogenase Troponin T C-Reactive Protein 11.40 H Total Protein Albumin Prealbumin Triglycerides Cholesterol LDL Cholesterol Direct HDL Cholesterol 25-OH Vitamin D Total PTH Intact Urine pH 9.0 H Urine WBC (Auto) Urine Creatinine Urine Total Protein Fluid Total Protein Vancomycin Trough Rheumatoid Factor Complement C4 Miscellaneous Test Crossmatch 11/05/16 11/05/16 11/05/16 13:25 17:54 23:42 WBC RBC Hgb Hct MCV MCH MCHC RDW Plt Count Lymph % (Auto) [place] % (Auto) Lymph # [place] # Baso # Seg Neutrophils % Seg Neuts % (Manual) Lymphocytes % (Manual) Monocytes % (Manual) Eosinophils % (Manual) Basophils % (Manual) Nucleated RBC % Seg Neutrophils # Seg Neutrophils # Man Lymphocytes # (Manual) Monocytes # (Manual) Eosinophils # (Manual) Basophils # (Manual) PT INR Fibrinogen dRVVT Confirm Interp Factor V Activity POC ABG pH POC ABG pCO2 POC ABG pO2 ABG pO2 ABG HCO3 ABG Base Excess ABG Hemoglobin Oxyhemoglobin Sodium Potassium Chloride Carbon Dioxide BUN Creatinine Glucose POC Glucose 114 H 134 H Lactic Acid Calcium Ionized Calcium Phosphorus Magnesium Direct Bilirubin AST ALT Alkaline Phosphatase Lactate Dehydrogenase Troponin T C-Reactive Protein Total Protein Albumin Prealbumin Triglycerides Cholesterol LDL Cholesterol Direct HDL Cholesterol 25-OH Vitamin D Total PTH Intact Urine pH Urine WBC (Auto) Urine Creatinine Urine Total Protein Fluid Total Protein Vancomycin Trough Rheumatoid Factor Complement C4 Miscellaneous Test Flexitest 1 H Crossmatch 11/06/16 11/06/16 11/06/16 04:56 06:25 06:25 WBC RBC 2.50 L Hgb 7.3 L Hct 22.5 L MCV MCH MCHC RDW 16.9 H Plt Count Lymph % (Auto) [place] % (Auto) 10.5 H Lymph # [place] # 1.1 H Baso # Seg Neutrophils % Seg Neuts % (Manual) Lymphocytes % (Manual) Monocytes % (Manual) Eosinophils % (Manual) Basophils % (Manual) Nucleated RBC % Seg Neutrophils # Seg Neutrophils # Man Lymphocytes # (Manual) Monocytes # (Manual) Eosinophils # (Manual) Basophils # (Manual) PT INR Fibrinogen dRVVT Confirm Interp Factor V Activity POC ABG pH POC ABG pCO2 POC ABG pO2 ABG pO2 ABG HCO3 ABG Base Excess ABG Hemoglobin Oxyhemoglobin Sodium Potassium 5.1 H Chloride 95.9 L Carbon Dioxide BUN 52 H Creatinine 1.8 H Glucose 117 H POC Glucose 120 H Lactic Acid Calcium Ionized Calcium Phosphorus Magnesium Direct Bilirubin AST 103 H ALT 77 H Alkaline Phosphatase 285 H Lactate Dehydrogenase Troponin T C-Reactive Protein Total Protein 6.2 L Albumin 1.8 L Prealbumin 0.180 L Triglycerides Cholesterol LDL Cholesterol Direct HDL Cholesterol 25-OH Vitamin D Total PTH Intact Urine pH Urine WBC (Auto) Urine Creatinine Urine Total Protein Fluid Total Protein Vancomycin Trough Rheumatoid Factor Complement C4 Miscellaneous Test Crossmatch 11/06/16 11/06/16 11/06/16 11:56 17:14 23:52 WBC RBC Hgb Hct MCV MCH MCHC RDW Plt Count Lymph % (Auto) [place] % (Auto) Lymph # [place] # Baso # Seg Neutrophils % Seg Neuts % (Manual) Lymphocytes % (Manual) Monocytes % (Manual) Eosinophils % (Manual) Basophils % (Manual) Nucleated RBC % Seg Neutrophils # Seg Neutrophils # Man Lymphocytes # (Manual) Monocytes # (Manual) Eosinophils # (Manual) Basophils # (Manual) PT INR Fibrinogen dRVVT Confirm Interp Factor V Activity POC ABG pH POC ABG pCO2 POC ABG pO2 ABG pO2 ABG HCO3 ABG Base Excess ABG Hemoglobin Oxyhemoglobin Sodium Potassium Chloride Carbon Dioxide BUN Creatinine Glucose POC Glucose 141 H 125 H 130 H Lactic Acid Calcium Ionized Calcium Phosphorus Magnesium Direct Bilirubin AST ALT Alkaline Phosphatase Lactate Dehydrogenase Troponin T C-Reactive Protein Total Protein Albumin Prealbumin Triglycerides Cholesterol LDL Cholesterol Direct HDL Cholesterol 25-OH Vitamin D Total PTH Intact Urine pH Urine WBC (Auto) Urine Creatinine Urine Total Protein Fluid Total Protein Vancomycin Trough Rheumatoid Factor Complement C4 Miscellaneous Test Crossmatch 11/07/16 11/07/16 11/07/16 06:30 06:30 09:37 WBC RBC 2.18 L Hgb 6.3 L Hct 19.7 L* MCV MCH MCHC RDW 16.8 H Plt Count Lymph % (Auto) [place] % (Auto) 10.0 H Lymph # [place] # 1.0 H Baso # Seg Neutrophils % Seg Neuts % (Manual) Lymphocytes % (Manual) Monocytes % (Manual) Eosinophils % (Manual) Basophils % (Manual) Nucleated RBC % Seg Neutrophils # Seg Neutrophils # Man Lymphocytes # (Manual) Monocytes # (Manual) Eosinophils # (Manual) Basophils # (Manual) PT INR Fibrinogen dRVVT Confirm Interp Factor V Activity POC ABG pH POC ABG pCO2 POC ABG pO2 ABG pO2 ABG HCO3 ABG Base Excess ABG Hemoglobin Oxyhemoglobin Sodium 135 L Potassium Chloride 95.6 L Carbon Dioxide BUN 70 H Creatinine 2.0 H Glucose 126 H POC Glucose Lactic Acid Calcium Ionized Calcium Phosphorus Magnesium Direct Bilirubin AST ALT Alkaline Phosphatase Lactate Dehydrogenase Troponin T C-Reactive Protein Total Protein Albumin Prealbumin Triglycerides Cholesterol LDL Cholesterol Direct HDL Cholesterol 25-OH Vitamin D Total PTH Intact Urine pH Urine WBC (Auto) Urine Creatinine Urine Total Protein Fluid Total Protein Vancomycin Trough Rheumatoid Factor Complement C4 Miscellaneous Test Crossmatch See Detail 11/07/16 11/07/16 11/07/16 12:52 18:51 21:26 WBC RBC Hgb Hct MCV MCH MCHC RDW Plt Count Lymph % (Auto) [place] % (Auto) Lymph # [place] # Baso # Seg Neutrophils % Seg Neuts % (Manual) Lymphocytes % (Manual) Monocytes % (Manual) Eosinophils % (Manual) Basophils % (Manual) Nucleated RBC % Seg Neutrophils # Seg Neutrophils # Man Lymphocytes # (Manual) Monocytes # (Manual) Eosinophils # (Manual) Basophils # (Manual) PT INR Fibrinogen dRVVT Confirm Interp Factor V Activity POC ABG pH 7.523 H POC ABG pCO2 34.6 L POC ABG pO2 53 L ABG pO2 ABG HCO3 ABG Base Excess ABG Hemoglobin Oxyhemoglobin Sodium Potassium Chloride Carbon Dioxide BUN Creatinine Glucose POC Glucose 142 H 155 H Lactic Acid Calcium Ionized Calcium Phosphorus Magnesium Direct Bilirubin AST ALT Alkaline Phosphatase Lactate Dehydrogenase Troponin T C-Reactive Protein Total Protein Albumin Prealbumin Triglycerides Cholesterol LDL Cholesterol Direct HDL Cholesterol 25-OH Vitamin D Total PTH Intact Urine pH Urine WBC (Auto) Urine Creatinine Urine Total Protein Fluid Total Protein Vancomycin Trough Rheumatoid Factor Complement C4 Miscellaneous Test Crossmatch 11/07/16 11/08/16 11/08/16 21:34 13:03 23:37 WBC RBC 2.63 L Hgb 7.7 L Hct 22.7 L MCV MCH MCHC RDW 17.0 H Plt Count Lymph % (Auto) [place] % (Auto) Lymph # [place] # Baso # Seg Neutrophils % Seg Neuts % (Manual) Lymphocytes % (Manual) Monocytes % (Manual) Eosinophils % (Manual) Basophils % (Manual) Nucleated RBC % Seg Neutrophils # Seg Neutrophils # Man Lymphocytes # (Manual) Monocytes # (Manual) Eosinophils # (Manual) Basophils # (Manual) PT INR Fibrinogen dRVVT Confirm Interp Factor V Activity POC ABG pH 7.478 H POC ABG pCO2 34.0 L POC ABG pO2 50 L ABG pO2 ABG HCO3 ABG Base Excess ABG Hemoglobin Oxyhemoglobin Sodium Potassium Chloride Carbon Dioxide BUN Creatinine Glucose POC Glucose 113 H Lactic Acid Calcium Ionized Calcium Phosphorus Magnesium Direct Bilirubin AST ALT Alkaline Phosphatase Lactate Dehydrogenase Troponin T C-Reactive Protein Total Protein Albumin Prealbumin Triglycerides Cholesterol LDL Cholesterol Direct HDL Cholesterol 25-OH Vitamin D Total PTH Intact Urine pH Urine WBC (Auto) Urine Creatinine Urine Total Protein Fluid Total Protein Vancomycin Trough Rheumatoid Factor Complement C4 Miscellaneous Test Crossmatch 11/09/16 11/09/16 11/09/16 04:35 10:15 18:21 WBC RBC 2.68 L Hgb 7.8 L Hct 23.3 L MCV MCH MCHC RDW 17.0 H Plt Count Lymph % (Auto) [place] % (Auto) 12.1 H Lymph # [place] # 1.1 H Baso # Seg Neutrophils % Seg Neuts % (Manual) Lymphocytes % (Manual) Monocytes % (Manual) Eosinophils % (Manual) Basophils % (Manual) Nucleated RBC % Seg Neutrophils # Seg Neutrophils # Man Lymphocytes # (Manual) Monocytes # (Manual) Eosinophils # (Manual) Basophils # (Manual) PT INR Fibrinogen dRVVT Confirm Interp Factor V Activity POC ABG pH POC ABG pCO2 POC ABG pO2 ABG pO2 ABG HCO3 ABG Base Excess ABG Hemoglobin Oxyhemoglobin Sodium Potassium Chloride Carbon Dioxide BUN 51 H Creatinine 1.8 H Glucose POC Glucose 60 L Lactic Acid Calcium 8.3 L Ionized Calcium Phosphorus Magnesium Direct Bilirubin AST ALT Alkaline Phosphatase Lactate Dehydrogenase Troponin T C-Reactive Protein Total Protein Albumin Prealbumin Triglycerides Cholesterol LDL Cholesterol Direct HDL Cholesterol 25-OH Vitamin D Total PTH Intact Urine pH Urine WBC (Auto) Urine Creatinine Urine Total Protein Fluid Total Protein Vancomycin Trough Rheumatoid Factor Complement C4 Miscellaneous Test Crossmatch 11/09/16 11/10/16 11/10/16 18:55 07:00 11:51 WBC RBC Hgb Hct MCV MCH MCHC RDW Plt Count Lymph % (Auto) [place] % (Auto) Lymph # [place] # Baso # Seg Neutrophils % Seg Neuts % (Manual) Lymphocytes % (Manual) Monocytes % (Manual) Eosinophils % (Manual) Basophils % (Manual) Nucleated RBC % Seg Neutrophils # Seg Neutrophils # Man Lymphocytes # (Manual) Monocytes # (Manual) Eosinophils # (Manual) Basophils # (Manual) PT INR Fibrinogen dRVVT Confirm Interp Factor V Activity POC ABG pH POC ABG pCO2 POC ABG pO2 ABG pO2 ABG HCO3 ABG Base Excess ABG Hemoglobin Oxyhemoglobin Sodium Potassium 3.0 L D Chloride 97.4 L Carbon Dioxide BUN 28 H Creatinine 1.3 H Glucose POC Glucose 68 L 120 H Lactic Acid Calcium 7.8 L Ionized Calcium Phosphorus Magnesium Direct Bilirubin AST ALT Alkaline Phosphatase Lactate Dehydrogenase Troponin T C-Reactive Protein Total Protein Albumin Prealbumin Triglycerides Cholesterol LDL Cholesterol Direct HDL Cholesterol 25-OH Vitamin D Total PTH Intact Urine pH Urine WBC (Auto) Urine Creatinine Urine Total Protein Fluid Total Protein Vancomycin Trough Rheumatoid Factor Complement C4 Miscellaneous Test Crossmatch 11/10/16 11/11/16 11/11/16 14:20 06:59 06:59 WBC RBC 2.81 L Hgb 8.1 L Hct 24.4 L MCV MCH MCHC RDW 16.4 H Plt Count Lymph % (Auto) [place] % (Auto) 10.8 H Lymph # [place] # 1.0 H Baso # Seg Neutrophils % Seg Neuts % (Manual) Lymphocytes % (Manual) Monocytes % (Manual) Eosinophils % (Manual) Basophils % (Manual) Nucleated RBC % Seg Neutrophils # Seg Neutrophils # Man Lymphocytes # (Manual) Monocytes # (Manual) Eosinophils # (Manual) Basophils # (Manual) PT INR Fibrinogen dRVVT Confirm Interp Factor V Activity POC ABG pH POC ABG pCO2 POC ABG pO2 ABG pO2 ABG HCO3 ABG Base Excess ABG Hemoglobin Oxyhemoglobin Sodium Potassium Chloride Carbon Dioxide BUN Creatinine Glucose POC Glucose Lactic Acid Calcium Ionized Calcium Phosphorus Magnesium Direct Bilirubin AST ALT Alkaline Phosphatase Lactate Dehydrogenase 196 H Troponin T C-Reactive Protein Total Protein 6.1 L Albumin Prealbumin Triglycerides Cholesterol LDL Cholesterol Direct HDL Cholesterol 25-OH Vitamin D Total PTH Intact Urine pH Urine WBC (Auto) Urine Creatinine Urine Total Protein Fluid Total Protein < 3.0 L Vancomycin Trough Rheumatoid Factor Complement C4 Miscellaneous Test Crossmatch 11/11/16 11/11/16 11/12/16 06:59 09:50 04:00 WBC RBC Hgb Hct MCV MCH MCHC RDW Plt Count Lymph % (Auto) [place] % (Auto) Lymph # [place] # Baso # Seg Neutrophils % Seg Neuts % (Manual) Lymphocytes % (Manual) Monocytes % (Manual) Eosinophils % (Manual) Basophils % (Manual) Nucleated RBC % Seg Neutrophils # Seg Neutrophils # Man Lymphocytes # (Manual) Monocytes # (Manual) Eosinophils # (Manual) Basophils # (Manual) PT INR 1.18 H Fibrinogen dRVVT Confirm Interp Factor V Activity POC ABG pH POC ABG pCO2 POC ABG pO2 ABG pO2 ABG HCO3 ABG Base Excess ABG Hemoglobin Oxyhemoglobin Sodium 136 L 133 L Potassium Chloride 96.1 L 94.8 L Carbon Dioxide 21 L BUN 37 H 42 H Creatinine 1.8 H 2.0 H Glucose POC Glucose Lactic Acid Calcium Ionized Calcium Phosphorus Magnesium Direct Bilirubin AST ALT Alkaline Phosphatase Lactate Dehydrogenase Troponin T C-Reactive Protein Total Protein Albumin Prealbumin Triglycerides Cholesterol LDL Cholesterol Direct HDL Cholesterol 25-OH Vitamin D Total PTH Intact Urine pH Urine WBC (Auto) Urine Creatinine Urine Total Protein Fluid Total Protein Vancomycin Trough Rheumatoid Factor Complement C4 Miscellaneous Test Crossmatch 11/12/16 11/12/16 11/13/16 04:00 23:55 05:53 WBC RBC Hgb 8.9 L Hct 27.2 L MCV MCH MCHC RDW Plt Count Lymph % (Auto) [place] % (Auto) Lymph # [place] # Baso # Seg Neutrophils % Seg Neuts % (Manual) Lymphocytes % (Manual) Monocytes % (Manual) Eosinophils % (Manual) Basophils % (Manual) Nucleated RBC % Seg Neutrophils # Seg Neutrophils # Man Lymphocytes # (Manual) Monocytes # (Manual) Eosinophils # (Manual) Basophils # (Manual) PT INR Fibrinogen dRVVT Confirm Interp Factor V Activity POC ABG pH POC ABG pCO2 POC ABG pO2 ABG pO2 ABG HCO3 ABG Base Excess ABG Hemoglobin Oxyhemoglobin Sodium Potassium Chloride Carbon Dioxide BUN Creatinine Glucose POC Glucose 132 H 120 H Lactic Acid Calcium Ionized Calcium Phosphorus Magnesium Direct Bilirubin AST ALT Alkaline Phosphatase Lactate Dehydrogenase Troponin T C-Reactive Protein Total Protein Albumin Prealbumin Triglycerides Cholesterol LDL Cholesterol Direct HDL Cholesterol 25-OH Vitamin D Total PTH Intact Urine pH Urine WBC (Auto) Urine Creatinine Urine Total Protein Fluid Total Protein Vancomycin Trough Rheumatoid Factor Complement C4 Miscellaneous Test Crossmatch 11/13/16 11/13/16 11/13/16 11:43 17:09 23:41 WBC RBC Hgb Hct MCV MCH MCHC RDW Plt Count Lymph % (Auto) [place] % (Auto) Lymph # [place] # Baso # Seg Neutrophils % Seg Neuts % (Manual) Lymphocytes % (Manual) Monocytes % (Manual) Eosinophils % (Manual) Basophils % (Manual) Nucleated RBC % Seg Neutrophils # Seg Neutrophils # Man Lymphocytes # (Manual) Monocytes # (Manual) Eosinophils # (Manual) Basophils # (Manual) PT INR Fibrinogen dRVVT Confirm Interp Factor V Activity POC ABG pH POC ABG pCO2 POC ABG pO2 ABG pO2 ABG HCO3 ABG Base Excess ABG Hemoglobin Oxyhemoglobin Sodium Potassium Chloride Carbon Dioxide BUN Creatinine Glucose POC Glucose 114 H 113 H 108 H Lactic Acid Calcium Ionized Calcium Phosphorus Magnesium Direct Bilirubin AST ALT Alkaline Phosphatase Lactate Dehydrogenase Troponin T C-Reactive Protein Total Protein Albumin Prealbumin Triglycerides Cholesterol LDL Cholesterol Direct HDL Cholesterol 25-OH Vitamin D Total PTH Intact Urine pH Urine WBC (Auto) Urine Creatinine Urine Total Protein Fluid Total Protein Vancomycin Trough Rheumatoid Factor Complement C4 Miscellaneous Test Crossmatch 11/13/16 11/15/16 11/15/16 Unknown 00:37 03:30 WBC 11.2 H RBC 2.72 L Hgb 7.6 L Hct 23.4 L MCV MCH MCHC RDW 16.5 H Plt Count Lymph % (Auto) [place] % (Auto) Lymph # [place] # Baso # Seg Neutrophils % Seg Neuts % (Manual) Lymphocytes % (Manual) Monocytes % (Manual) Eosinophils % (Manual) Basophils % (Manual) Nucleated RBC % Seg Neutrophils # Seg Neutrophils # Man Lymphocytes # (Manual) Monocytes # (Manual) Eosinophils # (Manual) Basophils # (Manual) PT INR Fibrinogen dRVVT Confirm Interp Factor V Activity POC ABG pH POC ABG pCO2 POC ABG pO2 ABG pO2 ABG HCO3 ABG Base Excess ABG Hemoglobin Oxyhemoglobin Sodium 135 L Potassium Chloride 95.2 L Carbon Dioxide BUN 52 H Creatinine 2.2 H Glucose POC Glucose 108 H Lactic Acid Calcium Ionized Calcium Phosphorus Magnesium Direct Bilirubin AST ALT Alkaline Phosphatase Lactate Dehydrogenase Troponin T C-Reactive Protein Total Protein Albumin Prealbumin Triglycerides Cholesterol LDL Cholesterol Direct HDL Cholesterol 25-OH Vitamin D Total PTH Intact Urine pH Urine WBC (Auto) Urine Creatinine Urine Total Protein Fluid Total Protein Vancomycin Trough Rheumatoid Factor Complement C4 Miscellaneous Test Crossmatch 11/15/16 11/15/16 11/15/16 03:30 05:04 11:50 WBC RBC Hgb Hct MCV MCH MCHC RDW Plt Count Lymph % (Auto) [place] % (Auto) Lymph # [place] # Baso # Seg Neutrophils % Seg Neuts % (Manual) Lymphocytes % (Manual) Monocytes % (Manual) Eosinophils % (Manual) Basophils % (Manual) Nucleated RBC % Seg Neutrophils # Seg Neutrophils # Man Lymphocytes # (Manual) Monocytes # (Manual) Eosinophils # (Manual) Basophils # (Manual) PT INR Fibrinogen dRVVT Confirm Interp Factor V Activity POC ABG pH POC ABG pCO2 POC ABG pO2 ABG pO2 ABG HCO3 ABG Base Excess ABG Hemoglobin Oxyhemoglobin Sodium Potassium 3.4 L Chloride Carbon Dioxide BUN 25 H Creatinine 1.5 H Glucose 103 H POC Glucose 121 H 144 H Lactic Acid Calcium Ionized Calcium Phosphorus Magnesium Direct Bilirubin AST ALT Alkaline Phosphatase Lactate Dehydrogenase Troponin T C-Reactive Protein Total Protein Albumin Prealbumin Triglycerides Cholesterol LDL Cholesterol Direct HDL Cholesterol 25-OH Vitamin D Total PTH Intact Urine pH Urine WBC (Auto) Urine Creatinine Urine Total Protein Fluid Total Protein Vancomycin Trough Rheumatoid Factor Complement C4 Miscellaneous Test Crossmatch 11/15/16 11/15/16 11/16/16 21:28 23:20 11:44 WBC RBC Hgb Hct MCV MCH MCHC RDW Plt Count Lymph % (Auto) [place] % (Auto) Lymph # [place] # Baso # Seg Neutrophils % Seg Neuts % (Manual) Lymphocytes % (Manual) Monocytes % (Manual) Eosinophils % (Manual) Basophils % (Manual) Nucleated RBC % Seg Neutrophils # Seg Neutrophils # Man Lymphocytes # (Manual) Monocytes # (Manual) Eosinophils # (Manual) Basophils # (Manual) PT INR Fibrinogen dRVVT Confirm Interp Factor V Activity POC ABG pH 7.462 H POC ABG pCO2 POC ABG pO2 71 L ABG pO2 ABG HCO3 ABG Base Excess ABG Hemoglobin Oxyhemoglobin Sodium Potassium Chloride Carbon Dioxide BUN Creatinine Glucose POC Glucose 116 H 133 H Lactic Acid Calcium Ionized Calcium Phosphorus Magnesium Direct Bilirubin AST ALT Alkaline Phosphatase Lactate Dehydrogenase Troponin T C-Reactive Protein Total Protein Albumin Prealbumin Triglycerides Cholesterol LDL Cholesterol Direct HDL Cholesterol 25-OH Vitamin D Total PTH Intact Urine pH Urine WBC (Auto) Urine Creatinine Urine Total Protein Fluid Total Protein Vancomycin Trough Rheumatoid Factor Complement C4 Miscellaneous Test Crossmatch 11/16/16 11/16/16 11/16/16 12:20 17:05 23:35 WBC 11.7 H RBC 2.73 L Hgb 7.6 L Hct 23.7 L MCV MCH MCHC RDW 16.6 H Plt Count Lymph % (Auto) [place] % (Auto) Lymph # [place] # Baso # Seg Neutrophils % Seg Neuts % (Manual) Lymphocytes % (Manual) Monocytes % (Manual) Eosinophils % (Manual) Basophils % (Manual) Nucleated RBC % Seg Neutrophils # Seg Neutrophils # Man Lymphocytes # (Manual) Monocytes # (Manual) Eosinophils # (Manual) Basophils # (Manual) PT INR Fibrinogen dRVVT Confirm Interp Factor V Activity POC ABG pH POC ABG pCO2 POC ABG pO2 ABG pO2 ABG HCO3 ABG Base Excess ABG Hemoglobin Oxyhemoglobin Sodium Potassium Chloride Carbon Dioxide BUN Creatinine Glucose POC Glucose 154 H 125 H Lactic Acid Calcium Ionized Calcium Phosphorus Magnesium Direct Bilirubin AST ALT Alkaline Phosphatase Lactate Dehydrogenase Troponin T C-Reactive Protein Total Protein Albumin Prealbumin Triglycerides Cholesterol LDL Cholesterol Direct HDL Cholesterol 25-OH Vitamin D Total PTH Intact Urine pH Urine WBC (Auto) Urine Creatinine Urine Total Protein Fluid Total Protein Vancomycin Trough Rheumatoid Factor Complement C4 Miscellaneous Test Crossmatch 11/17/16 11/17/16 11/17/16 03:20 03:20 03:20 WBC RBC 2.55 L Hgb 7.3 L Hct 21.9 L MCV MCH MCHC RDW 16.6 H Plt Count Lymph % (Auto) [place] % (Auto) 11.5 H Lymph # [place] # 1.1 H Baso # Seg Neutrophils % Seg Neuts % (Manual) Lymphocytes % (Manual) Monocytes % (Manual) Eosinophils % (Manual) Basophils % (Manual) Nucleated RBC % Seg Neutrophils # Seg Neutrophils # Man Lymphocytes # (Manual) Monocytes # (Manual) Eosinophils # (Manual) Basophils # (Manual) PT 16.8 H INR 1.37 H Fibrinogen dRVVT Confirm Interp Factor V Activity POC ABG pH POC ABG pCO2 POC ABG pO2 ABG pO2 ABG HCO3 ABG Base Excess ABG Hemoglobin Oxyhemoglobin Sodium Potassium 3.5 L Chloride Carbon Dioxide BUN 21 H Creatinine Glucose POC Glucose Lactic Acid Calcium 7.9 L Ionized Calcium Phosphorus Magnesium Direct Bilirubin AST ALT Alkaline Phosphatase Lactate Dehydrogenase Troponin T C-Reactive Protein Total Protein Albumin Prealbumin Triglycerides Cholesterol LDL Cholesterol Direct HDL Cholesterol 25-OH Vitamin D Total PTH Intact Urine pH Urine WBC (Auto) Urine Creatinine Urine Total Protein Fluid Total Protein Vancomycin Trough Rheumatoid Factor Complement C4 Miscellaneous Test Crossmatch 11/17/16 11/17/16 11/17/16 06:34 11:21 21:22 WBC RBC Hgb Hct MCV MCH MCHC RDW Plt Count Lymph % (Auto) [place] % (Auto) Lymph # [place] # Baso # Seg Neutrophils % Seg Neuts % (Manual) Lymphocytes % (Manual) Monocytes % (Manual) Eosinophils % (Manual) Basophils % (Manual) Nucleated RBC % Seg Neutrophils # Seg Neutrophils # Man Lymphocytes # (Manual) Monocytes # (Manual) Eosinophils # (Manual) Basophils # (Manual) PT INR Fibrinogen dRVVT Confirm Interp Factor V Activity POC ABG pH 7.467 H POC ABG pCO2 POC ABG pO2 73 L ABG pO2 ABG HCO3 ABG Base Excess ABG Hemoglobin Oxyhemoglobin Sodium Potassium Chloride Carbon Dioxide BUN Creatinine Glucose POC Glucose 121 H 119 H Lactic Acid Calcium Ionized Calcium Phosphorus Magnesium Direct Bilirubin AST ALT Alkaline Phosphatase Lactate Dehydrogenase Troponin T C-Reactive Protein Total Protein Albumin Prealbumin Triglycerides Cholesterol LDL Cholesterol Direct HDL Cholesterol 25-OH Vitamin D Total PTH Intact Urine pH Urine WBC (Auto) Urine Creatinine Urine Total Protein Fluid Total Protein Vancomycin Trough Rheumatoid Factor Complement C4 Miscellaneous Test Crossmatch 11/18/16 11/18/16 11/19/16 12:16 17:19 00:00 WBC RBC Hgb Hct MCV MCH MCHC RDW Plt Count Lymph % (Auto) [place] % (Auto) Lymph # [place] # Baso # Seg Neutrophils % Seg Neuts % (Manual) Lymphocytes % (Manual) Monocytes % (Manual) Eosinophils % (Manual) Basophils % (Manual) Nucleated RBC % Seg Neutrophils # Seg Neutrophils # Man Lymphocytes # (Manual) Monocytes # (Manual) Eosinophils # (Manual) Basophils # (Manual) PT INR Fibrinogen dRVVT Confirm Interp Factor V Activity POC ABG pH POC ABG pCO2 POC ABG pO2 ABG pO2 ABG HCO3 ABG Base Excess ABG Hemoglobin Oxyhemoglobin Sodium Potassium Chloride Carbon Dioxide BUN Creatinine Glucose POC Glucose 124 H 162 H 139 H Lactic Acid Calcium Ionized Calcium Phosphorus Magnesium Direct Bilirubin AST ALT Alkaline Phosphatase Lactate Dehydrogenase Troponin T C-Reactive Protein Total Protein Albumin Prealbumin Triglycerides Cholesterol LDL Cholesterol Direct HDL Cholesterol 25-OH Vitamin D Total PTH Intact Urine pH Urine WBC (Auto) Urine Creatinine Urine Total Protein Fluid Total Protein Vancomycin Trough Rheumatoid Factor Complement C4 Miscellaneous Test Crossmatch 11/19/16 11/19/16 11/20/16 05:00 12:43 00:40 WBC RBC Hgb Hct MCV MCH MCHC RDW Plt Count Lymph % (Auto) [place] % (Auto) Lymph # [place] # Baso # Seg Neutrophils % Seg Neuts % (Manual) Lymphocytes % (Manual) Monocytes % (Manual) Eosinophils % (Manual) Basophils % (Manual) Nucleated RBC % Seg Neutrophils # Seg Neutrophils # Man Lymphocytes # (Manual) Monocytes # (Manual) Eosinophils # (Manual) Basophils # (Manual) PT INR Fibrinogen dRVVT Confirm Interp Factor V Activity POC ABG pH POC ABG pCO2 POC ABG pO2 ABG pO2 ABG HCO3 ABG Base Excess ABG Hemoglobin Oxyhemoglobin Sodium Potassium Chloride Carbon Dioxide BUN Creatinine Glucose POC Glucose 110 H 125 H 136 H Lactic Acid Calcium Ionized Calcium Phosphorus Magnesium Direct Bilirubin AST ALT Alkaline Phosphatase Lactate Dehydrogenase Troponin T C-Reactive Protein Total Protein Albumin Prealbumin Triglycerides Cholesterol LDL Cholesterol Direct HDL Cholesterol 25-OH Vitamin D Total PTH Intact Urine pH Urine WBC (Auto) Urine Creatinine Urine Total Protein Fluid Total Protein Vancomycin Trough Rheumatoid Factor Complement C4 Miscellaneous Test Crossmatch 11/20/16 11/20/16 11/20/16 05:00 05:00 05:51 WBC 13.1 H RBC 2.74 L Hgb 7.7 L Hct 23.6 L MCV MCH MCHC RDW 16.9 H Plt Count Lymph % (Auto) [place] % (Auto) 10.8 H Lymph # [place] # 1.4 H Baso # Seg Neutrophils % Seg Neuts % (Manual) Lymphocytes % (Manual) Monocytes % (Manual) Eosinophils % (Manual) Basophils % (Manual) Nucleated RBC % Seg Neutrophils # 7.9 H Seg Neutrophils # Man Lymphocytes # (Manual) Monocytes # (Manual) Eosinophils # (Manual) Basophils # (Manual) PT INR Fibrinogen dRVVT Confirm Interp Factor V Activity POC ABG pH POC ABG pCO2 POC ABG pO2 ABG pO2 ABG HCO3 ABG Base Excess ABG Hemoglobin Oxyhemoglobin Sodium Potassium Chloride Carbon Dioxide BUN 31 H Creatinine 1.8 H Glucose 129 H POC Glucose 133 H Lactic Acid Calcium Ionized Calcium Phosphorus Magnesium Direct Bilirubin AST ALT Alkaline Phosphatase Lactate Dehydrogenase Troponin T C-Reactive Protein Total Protein Albumin Prealbumin Triglycerides Cholesterol LDL Cholesterol Direct HDL Cholesterol 25-OH Vitamin D Total PTH Intact Urine pH Urine WBC (Auto) Urine Creatinine Urine Total Protein Fluid Total Protein Vancomycin Trough Rheumatoid Factor Complement C4 Miscellaneous Test Crossmatch 11/20/16 11/20/16 11/21/16 12:40 18:10 01:20 WBC RBC Hgb Hct MCV MCH MCHC RDW Plt Count Lymph % (Auto) [place] % (Auto) Lymph # [place] # Baso # Seg Neutrophils % Seg Neuts % (Manual) Lymphocytes % (Manual) Monocytes % (Manual) Eosinophils % (Manual) Basophils % (Manual) Nucleated RBC % Seg Neutrophils # Seg Neutrophils # Man Lymphocytes # (Manual) Monocytes # (Manual) Eosinophils # (Manual) Basophils # (Manual) PT INR Fibrinogen dRVVT Confirm Interp Factor V Activity POC ABG pH POC ABG pCO2 POC ABG pO2 ABG pO2 ABG HCO3 ABG Base Excess ABG Hemoglobin Oxyhemoglobin Sodium Potassium Chloride Carbon Dioxide BUN Creatinine Glucose POC Glucose 134 H 138 H 136 H Lactic Acid Calcium Ionized Calcium Phosphorus Magnesium Direct Bilirubin AST ALT Alkaline Phosphatase Lactate Dehydrogenase Troponin T C-Reactive Protein Total Protein Albumin Prealbumin Triglycerides Cholesterol LDL Cholesterol Direct HDL Cholesterol 25-OH Vitamin D Total PTH Intact Urine pH Urine WBC (Auto) Urine Creatinine Urine Total Protein Fluid Total Protein Vancomycin Trough Rheumatoid Factor Complement C4 Miscellaneous Test Crossmatch 11/21/16 11/21/16 11/21/16 07:04 07:45 07:45 WBC 22.0 H RBC 2.91 L Hgb 8.2 L Hct 25.4 L MCV MCH MCHC RDW 17.1 H Plt Count Lymph % (Auto) [place] % (Auto) Lymph # [place] # Baso # Seg Neutrophils % Seg Neuts % (Manual) Lymphocytes % (Manual) 8.0 L Monocytes % (Manual) Eosinophils % (Manual) Basophils % (Manual) Nucleated RBC % Seg Neutrophils # Seg Neutrophils # Man 14.7 H Lymphocytes # (Manual) Monocytes # (Manual) 1.1 H Eosinophils # (Manual) Basophils # (Manual) PT INR Fibrinogen dRVVT Confirm Interp Factor V Activity POC ABG pH POC ABG pCO2 POC ABG pO2 ABG pO2 ABG HCO3 ABG Base Excess ABG Hemoglobin Oxyhemoglobin Sodium Potassium Chloride Carbon Dioxide BUN 42 H Creatinine 2.0 H Glucose POC Glucose 108 H Lactic Acid Calcium Ionized Calcium Phosphorus Magnesium Direct Bilirubin AST ALT Alkaline Phosphatase Lactate Dehydrogenase Troponin T C-Reactive Protein Total Protein Albumin Prealbumin Triglycerides Cholesterol LDL Cholesterol Direct HDL Cholesterol 25-OH Vitamin D Total PTH Intact Urine pH Urine WBC (Auto) Urine Creatinine Urine Total Protein Fluid Total Protein Vancomycin Trough Rheumatoid Factor Complement C4 Miscellaneous Test Crossmatch 11/21/16 11/21/16 11/21/16 08:38 10:09 11:20 WBC RBC Hgb Hct MCV MCH MCHC RDW Plt Count Lymph % (Auto) [place] % (Auto) Lymph # [place] # Baso # Seg Neutrophils % Seg Neuts % (Manual) Lymphocytes % (Manual) Monocytes % (Manual) Eosinophils % (Manual) Basophils % (Manual) Nucleated RBC % Seg Neutrophils # Seg Neutrophils # Man Lymphocytes # (Manual) Monocytes # (Manual) Eosinophils # (Manual) Basophils # (Manual) PT INR Fibrinogen dRVVT Confirm Interp Factor V Activity POC ABG pH 7.346 L POC ABG pCO2 34.4 L POC ABG pO2 314 H ABG pO2 ABG HCO3 ABG Base Excess ABG Hemoglobin Oxyhemoglobin Sodium Potassium Chloride Carbon Dioxide BUN Creatinine Glucose POC Glucose 195 H 153 H Lactic Acid Calcium Ionized Calcium Phosphorus Magnesium Direct Bilirubin AST ALT Alkaline Phosphatase Lactate Dehydrogenase Troponin T C-Reactive Protein Total Protein Albumin Prealbumin Triglycerides Cholesterol LDL Cholesterol Direct HDL Cholesterol 25-OH Vitamin D Total PTH Intact Urine pH Urine WBC (Auto) Urine Creatinine Urine Total Protein Fluid Total Protein Vancomycin Trough Rheumatoid Factor Complement C4 Miscellaneous Test Crossmatch 11/21/16 11/22/16 11/22/16 23:37 04:48 05:00 WBC 29.7 H RBC 2.73 L Hgb 7.5 L Hct 24.2 L MCV MCH 27 L MCHC RDW 17.4 H Plt Count Lymph % (Auto) [place] % (Auto) Lymph # [place] # Baso # Seg Neutrophils % Seg Neuts % (Manual) Lymphocytes % (Manual) 7.0 L Monocytes % (Manual) Eosinophils % (Manual) Basophils % (Manual) Nucleated RBC % Seg Neutrophils # Seg Neutrophils # Man 15.4 H Lymphocytes # (Manual) Monocytes # (Manual) Eosinophils # (Manual) Basophils # (Manual) PT INR Fibrinogen dRVVT Confirm Interp Factor V Activity POC ABG pH POC ABG pCO2 24.6 L POC ABG pO2 189 H ABG pO2 ABG HCO3 ABG Base Excess ABG Hemoglobin Oxyhemoglobin Sodium Potassium Chloride Carbon Dioxide BUN Creatinine Glucose POC Glucose 65 L Lactic Acid Calcium Ionized Calcium Phosphorus Magnesium Direct Bilirubin AST ALT Alkaline Phosphatase Lactate Dehydrogenase Troponin T C-Reactive Protein Total Protein Albumin Prealbumin Triglycerides Cholesterol LDL Cholesterol Direct HDL Cholesterol 25-OH Vitamin D Total PTH Intact Urine pH Urine WBC (Auto) Urine Creatinine Urine Total Protein Fluid Total Protein Vancomycin Trough Rheumatoid Factor Complement C4 Miscellaneous Test Crossmatch 11/22/16 11/23/16 11/23/16 05:00 03:44 04:06 WBC RBC 2.52 L Hgb 7.2 L Hct 21.5 L MCV MCH MCHC RDW 17.1 H Plt Count Lymph % (Auto) [place] % (Auto) 12.4 H Lymph # [place] # 1.4 H Baso # Seg Neutrophils % Seg Neuts % (Manual) Lymphocytes % (Manual) Monocytes % (Manual) Eosinophils % (Manual) Basophils % (Manual) Nucleated RBC % Seg Neutrophils # Seg Neutrophils # Man Lymphocytes # (Manual) Monocytes # (Manual) Eosinophils # (Manual) Basophils # (Manual) PT INR Fibrinogen dRVVT Confirm Interp Factor V Activity POC ABG pH 7.493 H POC ABG pCO2 29.5 L POC ABG pO2 49 L ABG pO2 ABG HCO3 ABG Base Excess ABG Hemoglobin Oxyhemoglobin Sodium 134 L Potassium Chloride 95.9 L Carbon Dioxide 14 L D BUN 51 H Creatinine 2.6 H Glucose POC Glucose Lactic Acid Calcium Ionized Calcium Phosphorus Magnesium Direct Bilirubin AST ALT Alkaline Phosphatase Lactate Dehydrogenase Troponin T C-Reactive Protein Total Protein Albumin Prealbumin Triglycerides Cholesterol LDL Cholesterol Direct HDL Cholesterol 25-OH Vitamin D Total PTH Intact Urine pH Urine WBC (Auto) Urine Creatinine Urine Total Protein Fluid Total Protein Vancomycin Trough Rheumatoid Factor Complement C4 Miscellaneous Test Crossmatch 11/23/16 11/23/16 11/24/16 04:06 11:29 06:39 WBC RBC Hgb Hct MCV MCH MCHC RDW Plt Count Lymph % (Auto) [place] % (Auto) Lymph # [place] # Baso # Seg Neutrophils % Seg Neuts % (Manual) Lymphocytes % (Manual) Monocytes % (Manual) Eosinophils % (Manual) Basophils % (Manual) Nucleated RBC % Seg Neutrophils # Seg Neutrophils # Man Lymphocytes # (Manual) Monocytes # (Manual) Eosinophils # (Manual) Basophils # (Manual) PT INR Fibrinogen dRVVT Confirm Interp Factor V Activity POC ABG pH POC ABG pCO2 POC ABG pO2 ABG pO2 ABG HCO3 ABG Base Excess ABG Hemoglobin Oxyhemoglobin Sodium 136 L Potassium Chloride 95.2 L Carbon Dioxide BUN 60 H Creatinine 2.9 H Glucose POC Glucose 69 L 305 H Lactic Acid Calcium Ionized Calcium Phosphorus Magnesium 1.60 L Direct Bilirubin AST ALT Alkaline Phosphatase Lactate Dehydrogenase Troponin T C-Reactive Protein Total Protein Albumin Prealbumin Triglycerides Cholesterol LDL Cholesterol Direct HDL Cholesterol 25-OH Vitamin D Total PTH Intact Urine pH Urine WBC (Auto) Urine Creatinine Urine Total Protein Fluid Total Protein Vancomycin Trough Rheumatoid Factor Complement C4 Miscellaneous Test Crossmatch 11/24/16 11/24/16 11/24/16 06:43 08:08 08:08 WBC 11.2 H RBC 2.47 L Hgb 6.8 L Hct 20.6 L MCV MCH MCHC RDW 17.0 H Plt Count Lymph % (Auto) [place] % (Auto) 10.3 H Lymph # [place] # 1.2 H Baso # Seg Neutrophils % Seg Neuts % (Manual) Lymphocytes % (Manual) Monocytes % (Manual) Eosinophils % (Manual) Basophils % (Manual) Nucleated RBC % Seg Neutrophils # Seg Neutrophils # Man Lymphocytes # (Manual) Monocytes # (Manual) Eosinophils # (Manual) Basophils # (Manual) PT INR Fibrinogen dRVVT Confirm Interp Factor V Activity POC ABG pH POC ABG pCO2 POC ABG pO2 ABG pO2 ABG HCO3 ABG Base Excess ABG Hemoglobin Oxyhemoglobin Sodium 135 L Potassium Chloride 96.3 L Carbon Dioxide BUN 61 H Creatinine 3.1 H Glucose POC Glucose 62 L Lactic Acid Calcium 8.2 L Ionized Calcium Phosphorus Magnesium Direct Bilirubin AST ALT Alkaline Phosphatase Lactate Dehydrogenase Troponin T C-Reactive Protein Total Protein Albumin Prealbumin Triglycerides Cholesterol LDL Cholesterol Direct HDL Cholesterol 25-OH Vitamin D Total PTH Intact Urine pH Urine WBC (Auto) Urine Creatinine Urine Total Protein Fluid Total Protein Vancomycin Trough Rheumatoid Factor Complement C4 Miscellaneous Test Crossmatch 11/24/16 11/24/16 11/24/16 08:34 11:20 12:41 WBC RBC Hgb Hct MCV MCH MCHC RDW Plt Count Lymph % (Auto) [place] % (Auto) Lymph # [place] # Baso # Seg Neutrophils % Seg Neuts % (Manual) Lymphocytes % (Manual) Monocytes % (Manual) Eosinophils % (Manual) Basophils % (Manual) Nucleated RBC % Seg Neutrophils # Seg Neutrophils # Man Lymphocytes # (Manual) Monocytes # (Manual) Eosinophils # (Manual) Basophils # (Manual) PT INR Fibrinogen dRVVT Confirm Interp Factor V Activity POC ABG pH POC ABG pCO2 POC ABG pO2 ABG pO2 ABG HCO3 ABG Base Excess ABG Hemoglobin Oxyhemoglobin Sodium Potassium Chloride Carbon Dioxide BUN Creatinine Glucose POC Glucose 108 H Lactic Acid Calcium Ionized Calcium Phosphorus Magnesium 1.60 L Direct Bilirubin AST ALT Alkaline Phosphatase Lactate Dehydrogenase Troponin T C-Reactive Protein Total Protein Albumin Prealbumin Triglycerides Cholesterol LDL Cholesterol Direct HDL Cholesterol 25-OH Vitamin D Total PTH Intact Urine pH Urine WBC (Auto) Urine Creatinine Urine Total Protein Fluid Total Protein Vancomycin Trough Rheumatoid Factor Complement C4 Miscellaneous Test Crossmatch See Detail 11/25/16 11/25/16 11/25/16 00:03 04:42 04:42 WBC RBC 3.03 L Hgb 8.6 L Hct 25.3 L MCV MCH MCHC RDW 16.2 H Plt Count Lymph % (Auto) [place] % (Auto) 8.1 H Lymph # [place] # Baso # Seg Neutrophils % 71.3 H Seg Neuts % (Manual) Lymphocytes % (Manual) Monocytes % (Manual) Eosinophils % (Manual) Basophils % (Manual) Nucleated RBC % Seg Neutrophils # Seg Neutrophils # Man Lymphocytes # (Manual) Monocytes # (Manual) Eosinophils # (Manual) Basophils # (Manual) PT INR Fibrinogen dRVVT Confirm Interp Factor V Activity POC ABG pH POC ABG pCO2 POC ABG pO2 ABG pO2 ABG HCO3 ABG Base Excess ABG Hemoglobin Oxyhemoglobin Sodium Potassium Chloride Carbon Dioxide BUN 61 H Creatinine 3.0 H Glucose 102 H POC Glucose 113 H Lactic Acid Calcium 8.2 L Ionized Calcium Phosphorus Magnesium Direct Bilirubin AST ALT Alkaline Phosphatase 142 H Lactate Dehydrogenase Troponin T C-Reactive Protein Total Protein 5.7 L Albumin 1.5 L Prealbumin Triglycerides Cholesterol LDL Cholesterol Direct HDL Cholesterol 25-OH Vitamin D Total PTH Intact Urine pH Urine WBC (Auto) Urine Creatinine Urine Total Protein Fluid Total Protein Vancomycin Trough Rheumatoid Factor Complement C4 Miscellaneous Test Crossmatch 11/25/16 11/25/16 11/25/16 05:12 11:31 14:12 WBC RBC Hgb Hct MCV MCH MCHC RDW Plt Count Lymph % (Auto) [place] % (Auto) Lymph # [place] # Baso # Seg Neutrophils % Seg Neuts % (Manual) Lymphocytes % (Manual) Monocytes % (Manual) Eosinophils % (Manual) Basophils % (Manual) Nucleated RBC % Seg Neutrophils # Seg Neutrophils # Man Lymphocytes # (Manual) Monocytes # (Manual) Eosinophils # (Manual) Basophils # (Manual) PT INR Fibrinogen dRVVT Confirm Interp Factor V Activity POC ABG pH 7.487 H POC ABG pCO2 POC ABG pO2 153 H ABG pO2 ABG HCO3 ABG Base Excess ABG Hemoglobin Oxyhemoglobin Sodium Potassium Chloride Carbon Dioxide BUN Creatinine Glucose POC Glucose 131 H 140 H Lactic Acid Calcium Ionized Calcium Phosphorus Magnesium Direct Bilirubin AST ALT Alkaline Phosphatase Lactate Dehydrogenase Troponin T C-Reactive Protein Total Protein Albumin Prealbumin Triglycerides Cholesterol LDL Cholesterol Direct HDL Cholesterol 25-OH Vitamin D Total PTH Intact Urine pH Urine WBC (Auto) Urine Creatinine Urine Total Protein Fluid Total Protein Vancomycin Trough Rheumatoid Factor Complement C4 Miscellaneous Test Crossmatch 11/25/16 11/26/16 11/26/16 17:23 00:09 05:13 WBC RBC 2.94 L Hgb 8.4 L Hct 24.6 L MCV MCH MCHC RDW 16.4 H Plt Count Lymph % (Auto) [place] % (Auto) 12.3 H Lymph # [place] # 1.1 H Baso # Seg Neutrophils % Seg Neuts % (Manual) Lymphocytes % (Manual) Monocytes % (Manual) Eosinophils % (Manual) Basophils % (Manual) Nucleated RBC % Seg Neutrophils # Seg Neutrophils # Man Lymphocytes # (Manual) Monocytes # (Manual) Eosinophils # (Manual) Basophils # (Manual) PT INR Fibrinogen dRVVT Confirm Interp Factor V Activity POC ABG pH POC ABG pCO2 POC ABG pO2 ABG pO2 ABG HCO3 ABG Base Excess ABG Hemoglobin Oxyhemoglobin Sodium Potassium Chloride Carbon Dioxide BUN Creatinine Glucose POC Glucose 146 H 112 H Lactic Acid Calcium Ionized Calcium Phosphorus Magnesium Direct Bilirubin AST ALT Alkaline Phosphatase Lactate Dehydrogenase Troponin T C-Reactive Protein Total Protein Albumin Prealbumin Triglycerides Cholesterol LDL Cholesterol Direct HDL Cholesterol 25-OH Vitamin D Total PTH Intact Urine pH Urine WBC (Auto) Urine Creatinine Urine Total Protein Fluid Total Protein Vancomycin Trough Rheumatoid Factor Complement C4 Miscellaneous Test Crossmatch 11/26/16 11/26/16 11/26/16 05:13 05:28 11:53 WBC RBC Hgb Hct MCV MCH MCHC RDW Plt Count Lymph % (Auto) [place] % (Auto) Lymph # [place] # Baso # Seg Neutrophils % Seg Neuts % (Manual) Lymphocytes % (Manual) Monocytes % (Manual) Eosinophils % (Manual) Basophils % (Manual) Nucleated RBC % Seg Neutrophils # Seg Neutrophils # Man Lymphocytes # (Manual) Monocytes # (Manual) Eosinophils # (Manual) Basophils # (Manual) PT INR Fibrinogen dRVVT Confirm Interp Factor V Activity POC ABG pH POC ABG pCO2 POC ABG pO2 ABG pO2 ABG HCO3 ABG Base Excess ABG Hemoglobin Oxyhemoglobin Sodium Potassium Chloride 97.8 L Carbon Dioxide BUN 37 H Creatinine 2.0 H Glucose 109 H POC Glucose 117 H 111 H Lactic Acid Calcium 7.9 L Ionized Calcium Phosphorus 1.80 L D Magnesium Direct Bilirubin AST ALT Alkaline Phosphatase Lactate Dehydrogenase Troponin T C-Reactive Protein Total Protein Albumin Prealbumin Triglycerides Cholesterol LDL Cholesterol Direct HDL Cholesterol 25-OH Vitamin D Total PTH Intact Urine pH Urine WBC (Auto) Urine Creatinine Urine Total Protein Fluid Total Protein Vancomycin Trough Rheumatoid Factor Complement C4 Miscellaneous Test Crossmatch 11/26/16 11/27/16 11/27/16 17:14 04:50 06:02 WBC RBC Hgb Hct MCV MCH MCHC RDW Plt Count Lymph % (Auto) [place] % (Auto) Lymph # [place] # Baso # Seg Neutrophils % Seg Neuts % (Manual) Lymphocytes % (Manual) Monocytes % (Manual) Eosinophils % (Manual) Basophils % (Manual) Nucleated RBC % Seg Neutrophils # Seg Neutrophils # Man Lymphocytes # (Manual) Monocytes # (Manual) Eosinophils # (Manual) Basophils # (Manual) PT INR Fibrinogen dRVVT Confirm Interp Factor V Activity POC ABG pH POC ABG pCO2 POC ABG pO2 ABG pO2 75.2 L ABG HCO3 26.4 H ABG Base Excess ABG Hemoglobin 7.6 L Oxyhemoglobin 94.8 L Sodium Potassium Chloride Carbon Dioxide BUN 49 H Creatinine 2.3 H Glucose POC Glucose 115 H Lactic Acid Calcium Ionized Calcium Phosphorus 1.50 L Magnesium Direct Bilirubin AST ALT Alkaline Phosphatase Lactate Dehydrogenase Troponin T C-Reactive Protein Total Protein Albumin Prealbumin Triglycerides Cholesterol LDL Cholesterol Direct HDL Cholesterol 25-OH Vitamin D Total PTH Intact Urine pH Urine WBC (Auto) Urine Creatinine Urine Total Protein Fluid Total Protein Vancomycin Trough Rheumatoid Factor Complement C4 Miscellaneous Test Crossmatch 11/27/16 11/27/16 11/27/16 06:02 11:25 17:25 WBC 11.6 H RBC 2.75 L Hgb 7.6 L Hct 23.4 L MCV MCH MCHC RDW 16.5 H Plt Count Lymph % (Auto) [place] % (Auto) Lymph # [place] # Baso # Seg Neutrophils % Seg Neuts % (Manual) Lymphocytes % (Manual) Monocytes % (Manual) Eosinophils % (Manual) Basophils % (Manual) Nucleated RBC % Seg Neutrophils # Seg Neutrophils # Man Lymphocytes # (Manual) Monocytes # (Manual) Eosinophils # (Manual) Basophils # (Manual) PT INR Fibrinogen dRVVT Confirm Interp Factor V Activity POC ABG pH POC ABG pCO2 POC ABG pO2 ABG pO2 ABG HCO3 ABG Base Excess ABG Hemoglobin Oxyhemoglobin Sodium Potassium Chloride Carbon Dioxide BUN Creatinine Glucose POC Glucose 114 H 126 H Lactic Acid Calcium Ionized Calcium Phosphorus Magnesium Direct Bilirubin AST ALT Alkaline Phosphatase Lactate Dehydrogenase Troponin T C-Reactive Protein Total Protein Albumin Prealbumin Triglycerides Cholesterol LDL Cholesterol Direct HDL Cholesterol 25-OH Vitamin D Total PTH Intact Urine pH Urine WBC (Auto) Urine Creatinine Urine Total Protein Fluid Total Protein Vancomycin Trough Rheumatoid Factor Complement C4 Miscellaneous Test Crossmatch 11/28/16 11/28/16 11/28/16 04:45 05:33 05:44 WBC RBC Hgb Hct MCV MCH MCHC RDW Plt Count Lymph % (Auto) [place] % (Auto) Lymph # [place] # Baso # Seg Neutrophils % Seg Neuts % (Manual) Lymphocytes % (Manual) Monocytes % (Manual) Eosinophils % (Manual) Basophils % (Manual) Nucleated RBC % Seg Neutrophils # Seg Neutrophils # Man Lymphocytes # (Manual) Monocytes # (Manual) Eosinophils # (Manual) Basophils # (Manual) PT INR Fibrinogen dRVVT Confirm Interp Factor V Activity POC ABG pH POC ABG pCO2 POC ABG pO2 ABG pO2 99.3 H ABG HCO3 ABG Base Excess ABG Hemoglobin 8.3 L Oxyhemoglobin Sodium Potassium Chloride Carbon Dioxide BUN 63 H Creatinine 2.4 H Glucose 102 H POC Glucose 108 H Lactic Acid Calcium Ionized Calcium Phosphorus 1.80 L Magnesium Direct Bilirubin AST ALT Alkaline Phosphatase Lactate Dehydrogenase Troponin T C-Reactive Protein Total Protein Albumin Prealbumin Triglycerides Cholesterol LDL Cholesterol Direct HDL Cholesterol 25-OH Vitamin D Total PTH Intact Urine pH Urine WBC (Auto) Urine Creatinine Urine Total Protein Fluid Total Protein Vancomycin Trough Rheumatoid Factor Complement C4 Miscellaneous Test Crossmatch 11/28/16 11/28/16 11/28/16 12:31 16:09 23:46 WBC RBC Hgb Hct MCV MCH MCHC RDW Plt Count Lymph % (Auto) [place] % (Auto) Lymph # [place] # Baso # Seg Neutrophils % Seg Neuts % (Manual) Lymphocytes % (Manual) Monocytes % (Manual) Eosinophils % (Manual) Basophils % (Manual) Nucleated RBC % Seg Neutrophils # Seg Neutrophils # Man Lymphocytes # (Manual) Monocytes # (Manual) Eosinophils # (Manual) Basophils # (Manual) PT INR Fibrinogen dRVVT Confirm Interp Factor V Activity POC ABG pH POC ABG pCO2 POC ABG pO2 ABG pO2 ABG HCO3 ABG Base Excess ABG Hemoglobin Oxyhemoglobin Sodium Potassium Chloride Carbon Dioxide BUN Creatinine Glucose POC Glucose 126 H 111 H 119 H Lactic Acid Calcium Ionized Calcium Phosphorus Magnesium Direct Bilirubin AST ALT Alkaline Phosphatase Lactate Dehydrogenase Troponin T C-Reactive Protein Total Protein Albumin Prealbumin Triglycerides Cholesterol LDL Cholesterol Direct HDL Cholesterol 25-OH Vitamin D Total PTH Intact Urine pH Urine WBC (Auto) Urine Creatinine Urine Total Protein Fluid Total Protein Vancomycin Trough Rheumatoid Factor Complement C4 Miscellaneous Test Crossmatch 11/29/16 11/29/16 11/29/16 03:33 04:52 05:10 WBC RBC Hgb Hct MCV MCH MCHC RDW Plt Count Lymph % (Auto) [place] % (Auto) Lymph # [place] # Baso # Seg Neutrophils % Seg Neuts % (Manual) Lymphocytes % (Manual) Monocytes % (Manual) Eosinophils % (Manual) Basophils % (Manual) Nucleated RBC % Seg Neutrophils # Seg Neutrophils # Man Lymphocytes # (Manual) Monocytes # (Manual) Eosinophils # (Manual) Basophils # (Manual) PT INR Fibrinogen dRVVT Confirm Interp Factor V Activity POC ABG pH POC ABG pCO2 POC ABG pO2 ABG pO2 ABG HCO3 ABG Base Excess ABG Hemoglobin 7.0 L Oxyhemoglobin 94.9 L Sodium Potassium Chloride Carbon Dioxide BUN 73 H Creatinine 2.7 H Glucose POC Glucose 108 H Lactic Acid Calcium Ionized Calcium Phosphorus Magnesium Direct Bilirubin AST ALT Alkaline Phosphatase Lactate Dehydrogenase Troponin T C-Reactive Protein Total Protein Albumin Prealbumin Triglycerides Cholesterol LDL Cholesterol Direct HDL Cholesterol 25-OH Vitamin D Total PTH Intact Urine pH Urine WBC (Auto) Urine Creatinine Urine Total Protein Fluid Total Protein Vancomycin Trough Rheumatoid Factor Complement C4 Miscellaneous Test Crossmatch 11/29/16 11/29/16 11/29/16 12:16 18:05 23:46 WBC RBC Hgb Hct MCV MCH MCHC RDW Plt Count Lymph % (Auto) [place] % (Auto) Lymph # [place] # Baso # Seg Neutrophils % Seg Neuts % (Manual) Lymphocytes % (Manual) Monocytes % (Manual) Eosinophils % (Manual) Basophils % (Manual) Nucleated RBC % Seg Neutrophils # Seg Neutrophils # Man Lymphocytes # (Manual) Monocytes # (Manual) Eosinophils # (Manual) Basophils # (Manual) PT INR Fibrinogen dRVVT Confirm Interp Factor V Activity POC ABG pH POC ABG pCO2 POC ABG pO2 ABG pO2 ABG HCO3 ABG Base Excess ABG Hemoglobin Oxyhemoglobin Sodium Potassium Chloride Carbon Dioxide BUN Creatinine Glucose POC Glucose 133 H 146 H 141 H Lactic Acid Calcium Ionized Calcium Phosphorus Magnesium Direct Bilirubin AST ALT Alkaline Phosphatase Lactate Dehydrogenase Troponin T C-Reactive Protein Total Protein Albumin Prealbumin Triglycerides Cholesterol LDL Cholesterol Direct HDL Cholesterol 25-OH Vitamin D Total PTH Intact Urine pH Urine WBC (Auto) Urine Creatinine Urine Total Protein Fluid Total Protein Vancomycin Trough Rheumatoid Factor Complement C4 Miscellaneous Test Crossmatch 11/30/16 11/30/16 11/30/16 04:17 04:17 04:32 WBC 12.0 H RBC 2.80 L Hgb 7.8 L Hct 23.6 L MCV MCH MCHC RDW 16.6 H Plt Count Lymph % (Auto) [place] % (Auto) 11.3 H Lymph # [place] # 1.4 H Baso # Seg Neutrophils % Seg Neuts % (Manual) Lymphocytes % (Manual) Monocytes % (Manual) Eosinophils % (Manual) Basophils % (Manual) Nucleated RBC % Seg Neutrophils # 8.2 H Seg Neutrophils # Man Lymphocytes # (Manual) Monocytes # (Manual) Eosinophils # (Manual) Basophils # (Manual) PT INR Fibrinogen dRVVT Confirm Interp Factor V Activity POC ABG pH POC ABG pCO2 POC ABG pO2 ABG pO2 ABG HCO3 ABG Base Excess ABG Hemoglobin Oxyhemoglobin Sodium 169 H* D Potassium 5.1 H Chloride 121.5 H Carbon Dioxide BUN 34 H Creatinine 1.3 H D Glucose 133 H POC Glucose 131 H Lactic Acid Calcium 10.3 H Ionized Calcium Phosphorus Magnesium Direct Bilirubin AST ALT Alkaline Phosphatase Lactate Dehydrogenase Troponin T C-Reactive Protein Total Protein Albumin Prealbumin Triglycerides Cholesterol LDL Cholesterol Direct HDL Cholesterol 25-OH Vitamin D Total PTH Intact Urine pH Urine WBC (Auto) Urine Creatinine Urine Total Protein Fluid Total Protein Vancomycin Trough Rheumatoid Factor Complement C4 Miscellaneous Test Crossmatch 11/30/16 11/30/16 11/30/16 05:45 11:10 17:26 WBC RBC Hgb Hct MCV MCH MCHC RDW Plt Count Lymph % (Auto) [place] % (Auto) Lymph # [place] # Baso # Seg Neutrophils % Seg Neuts % (Manual) Lymphocytes % (Manual) Monocytes % (Manual) Eosinophils % (Manual) Basophils % (Manual) Nucleated RBC % Seg Neutrophils # Seg Neutrophils # Man Lymphocytes # (Manual) Monocytes # (Manual) Eosinophils # (Manual) Basophils # (Manual) PT INR Fibrinogen dRVVT Confirm Interp Factor V Activity POC ABG pH POC ABG pCO2 POC ABG pO2 ABG pO2 ABG HCO3 ABG Base Excess ABG Hemoglobin Oxyhemoglobin Sodium Potassium Chloride Carbon Dioxide BUN 45 H Creatinine 1.6 H Glucose 131 H POC Glucose 146 H 134 H Lactic Acid Calcium Ionized Calcium Phosphorus Magnesium Direct Bilirubin AST ALT Alkaline Phosphatase Lactate Dehydrogenase Troponin T C-Reactive Protein Total Protein Albumin Prealbumin Triglycerides Cholesterol LDL Cholesterol Direct HDL Cholesterol 25-OH Vitamin D Total PTH Intact Urine pH Urine WBC (Auto) Urine Creatinine Urine Total Protein Fluid Total Protein Vancomycin Trough Rheumatoid Factor Complement C4 Miscellaneous Test Crossmatch 11/30/16 12/01/16 12/01/16 23:35 00:06 03:35 WBC RBC Hgb Hct MCV MCH MCHC RDW Plt Count Lymph % (Auto) [place] % (Auto) Lymph # [place] # Baso # Seg Neutrophils % Seg Neuts % (Manual) Lymphocytes % (Manual) Monocytes % (Manual) Eosinophils % (Manual) Basophils % (Manual) Nucleated RBC % Seg Neutrophils # Seg Neutrophils # Man Lymphocytes # (Manual) Monocytes # (Manual) Eosinophils # (Manual) Basophils # (Manual) PT INR Fibrinogen dRVVT Confirm Interp Factor V Activity POC ABG pH POC ABG pCO2 POC ABG pO2 ABG pO2 ABG HCO3 ABG Base Excess ABG Hemoglobin 6.9 L Oxyhemoglobin Sodium Potassium Chloride Carbon Dioxide BUN 58 H Creatinine 1.8 H Glucose 146 H POC Glucose 151 H Lactic Acid Calcium Ionized Calcium Phosphorus Magnesium Direct Bilirubin AST ALT Alkaline Phosphatase Lactate Dehydrogenase Troponin T C-Reactive Protein Total Protein Albumin Prealbumin Triglycerides Cholesterol LDL Cholesterol Direct HDL Cholesterol 25-OH Vitamin D Total PTH Intact Urine pH Urine WBC (Auto) Urine Creatinine Urine Total Protein Fluid Total Protein Vancomycin Trough Rheumatoid Factor Complement C4 Miscellaneous Test Crossmatch 12/01/16 12/01/16 12/01/16 03:35 05:47 11:52 WBC 12.3 H RBC 2.82 L Hgb 7.8 L Hct 23.7 L MCV MCH MCHC RDW 16.7 H Plt Count Lymph % (Auto) [place] % (Auto) 9.8 H Lymph # [place] # 1.2 H Baso # Seg Neutrophils % Seg Neuts % (Manual) Lymphocytes % (Manual) Monocytes % (Manual) Eosinophils % (Manual) Basophils % (Manual) Nucleated RBC % Seg Neutrophils # 8.4 H Seg Neutrophils # Man Lymphocytes # (Manual) Monocytes # (Manual) Eosinophils # (Manual) Basophils # (Manual) PT INR Fibrinogen dRVVT Confirm Interp Factor V Activity POC ABG pH POC ABG pCO2 POC ABG pO2 ABG pO2 ABG HCO3 ABG Base Excess ABG Hemoglobin Oxyhemoglobin Sodium Potassium Chloride Carbon Dioxide BUN Creatinine Glucose POC Glucose 152 H 152 H Lactic Acid Calcium Ionized Calcium Phosphorus Magnesium Direct Bilirubin AST ALT Alkaline Phosphatase Lactate Dehydrogenase Troponin T C-Reactive Protein Total Protein Albumin Prealbumin Triglycerides Cholesterol LDL Cholesterol Direct HDL Cholesterol 25-OH Vitamin D Total PTH Intact Urine pH Urine WBC (Auto) Urine Creatinine Urine Total Protein Fluid Total Protein Vancomycin Trough Rheumatoid Factor Complement C4 Miscellaneous Test Crossmatch 12/01/16 12/01/16 12/02/16 17:40 23:41 05:00 WBC RBC Hgb Hct MCV MCH MCHC RDW Plt Count Lymph % (Auto) [place] % (Auto) Lymph # [place] # Baso # Seg Neutrophils % Seg Neuts % (Manual) Lymphocytes % (Manual) Monocytes % (Manual) Eosinophils % (Manual) Basophils % (Manual) Nucleated RBC % Seg Neutrophils # Seg Neutrophils # Man Lymphocytes # (Manual) Monocytes # (Manual) Eosinophils # (Manual) Basophils # (Manual) PT INR Fibrinogen dRVVT Confirm Interp Factor V Activity POC ABG pH POC ABG pCO2 POC ABG pO2 ABG pO2 ABG HCO3 ABG Base Excess ABG Hemoglobin Oxyhemoglobin Sodium Potassium Chloride Carbon Dioxide BUN 45 H Creatinine Glucose 115 H POC Glucose 140 H 144 H Lactic Acid Calcium Ionized Calcium Phosphorus Magnesium Direct Bilirubin AST ALT Alkaline Phosphatase Lactate Dehydrogenase Troponin T C-Reactive Protein Total Protein Albumin Prealbumin Triglycerides Cholesterol LDL Cholesterol Direct HDL Cholesterol 25-OH Vitamin D Total PTH Intact Urine pH Urine WBC (Auto) Urine Creatinine Urine Total Protein Fluid Total Protein Vancomycin Trough Rheumatoid Factor Complement C4 Miscellaneous Test Crossmatch 12/02/16 12/02/16 12/02/16 05:31 11:20 17:38 WBC RBC Hgb Hct MCV MCH MCHC RDW Plt Count Lymph % (Auto) [place] % (Auto) Lymph # [place] # Baso # Seg Neutrophils % Seg Neuts % (Manual) Lymphocytes % (Manual) Monocytes % (Manual) Eosinophils % (Manual) Basophils % (Manual) Nucleated RBC % Seg Neutrophils # Seg Neutrophils # Man Lymphocytes # (Manual) Monocytes # (Manual) Eosinophils # (Manual) Basophils # (Manual) PT INR Fibrinogen dRVVT Confirm Interp Factor V Activity POC ABG pH POC ABG pCO2 POC ABG pO2 ABG pO2 ABG HCO3 ABG Base Excess ABG Hemoglobin Oxyhemoglobin Sodium Potassium Chloride Carbon Dioxide BUN Creatinine Glucose POC Glucose 136 H 177 H 139 H Lactic Acid Calcium Ionized Calcium Phosphorus Magnesium Direct Bilirubin AST ALT Alkaline Phosphatase Lactate Dehydrogenase Troponin T C-Reactive Protein Total Protein Albumin Prealbumin Triglycerides Cholesterol LDL Cholesterol Direct HDL Cholesterol 25-OH Vitamin D Total PTH Intact Urine pH Urine WBC (Auto) Urine Creatinine Urine Total Protein Fluid Total Protein Vancomycin Trough Rheumatoid Factor Complement C4 Miscellaneous Test Crossmatch 12/02/16 12/03/16 12/03/16 23:43 04:00 04:00 WBC 20.4 H RBC 2.74 L Hgb 7.4 L Hct 23.6 L MCV MCH 27 L MCHC RDW 17.1 H Plt Count Lymph % (Auto) [place] % (Auto) Lymph # [place] # Baso # Seg Neutrophils % Seg Neuts % (Manual) 31.0 L Lymphocytes % (Manual) Monocytes % (Manual) Eosinophils % (Manual) Basophils % (Manual) Nucleated RBC % Seg Neutrophils # Seg Neutrophils # Man Lymphocytes # (Manual) Monocytes # (Manual) Eosinophils # (Manual) Basophils # (Manual) PT INR Fibrinogen dRVVT Confirm Interp Factor V Activity POC ABG pH POC ABG pCO2 POC ABG pO2 ABG pO2 ABG HCO3 ABG Base Excess ABG Hemoglobin Oxyhemoglobin Sodium Potassium Chloride Carbon Dioxide BUN 61 H Creatinine 1.6 H Glucose 119 H POC Glucose 158 H Lactic Acid Calcium Ionized Calcium Phosphorus Magnesium Direct Bilirubin AST ALT Alkaline Phosphatase Lactate Dehydrogenase Troponin T C-Reactive Protein Total Protein Albumin Prealbumin Triglycerides Cholesterol LDL Cholesterol Direct HDL Cholesterol 25-OH Vitamin D Total PTH Intact Urine pH Urine WBC (Auto) Urine Creatinine Urine Total Protein Fluid Total Protein Vancomycin Trough Rheumatoid Factor Complement C4 Miscellaneous Test Crossmatch 12/03/16 12/03/16 12/03/16 05:02 12:11 18:16 WBC RBC Hgb Hct MCV MCH MCHC RDW Plt Count Lymph % (Auto) [place] % (Auto) Lymph # [place] # Baso # Seg Neutrophils % Seg Neuts % (Manual) Lymphocytes % (Manual) Monocytes % (Manual) Eosinophils % (Manual) Basophils % (Manual) Nucleated RBC % Seg Neutrophils # Seg Neutrophils # Man Lymphocytes # (Manual) Monocytes # (Manual) Eosinophils # (Manual) Basophils # (Manual) PT INR Fibrinogen dRVVT Confirm Interp Factor V Activity POC ABG pH POC ABG pCO2 POC ABG pO2 ABG pO2 ABG HCO3 ABG Base Excess ABG Hemoglobin Oxyhemoglobin Sodium Potassium Chloride Carbon Dioxide BUN Creatinine Glucose POC Glucose 146 H 157 H 124 H Lactic Acid Calcium Ionized Calcium Phosphorus Magnesium Direct Bilirubin AST ALT Alkaline Phosphatase Lactate Dehydrogenase Troponin T C-Reactive Protein Total Protein Albumin Prealbumin Triglycerides Cholesterol LDL Cholesterol Direct HDL Cholesterol 25-OH Vitamin D Total PTH Intact Urine pH Urine WBC (Auto) Urine Creatinine Urine Total Protein Fluid Total Protein Vancomycin Trough Rheumatoid Factor Complement C4 Miscellaneous Test Crossmatch 12/03/16 12/04/16 12/04/16 23:41 04:00 04:45 WBC RBC Hgb Hct MCV MCH MCHC RDW Plt Count Lymph % (Auto) [place] % (Auto) Lymph # [place] # Baso # Seg Neutrophils % Seg Neuts % (Manual) Lymphocytes % (Manual) Monocytes % (Manual) Eosinophils % (Manual) Basophils % (Manual) Nucleated RBC % Seg Neutrophils # Seg Neutrophils # Man Lymphocytes # (Manual) Monocytes # (Manual) Eosinophils # (Manual) Basophils # (Manual) PT INR Fibrinogen dRVVT Confirm Interp Factor V Activity POC ABG pH POC ABG pCO2 POC ABG pO2 ABG pO2 ABG HCO3 ABG Base Excess ABG Hemoglobin Oxyhemoglobin Sodium Potassium Chloride Carbon Dioxide BUN 76 H Creatinine 1.6 H Glucose POC Glucose 130 H 136 H Lactic Acid Calcium Ionized Calcium Phosphorus Magnesium Direct Bilirubin AST ALT Alkaline Phosphatase 155 H Lactate Dehydrogenase Troponin T C-Reactive Protein Total Protein 5.5 L Albumin 1.5 L Prealbumin Triglycerides Cholesterol LDL Cholesterol Direct HDL Cholesterol 25-OH Vitamin D Total PTH Intact Urine pH Urine WBC (Auto) Urine Creatinine Urine Total Protein Fluid Total Protein Vancomycin Trough Rheumatoid Factor Complement C4 Miscellaneous Test Crossmatch 12/04/16 12/04/16 12/05/16 12:08 17:23 00:10 WBC RBC Hgb Hct MCV MCH MCHC RDW Plt Count Lymph % (Auto) [place] % (Auto) Lymph # [place] # Baso # Seg Neutrophils % Seg Neuts % (Manual) Lymphocytes % (Manual) Monocytes % (Manual) Eosinophils % (Manual) Basophils % (Manual) Nucleated RBC % Seg Neutrophils # Seg Neutrophils # Man Lymphocytes # (Manual) Monocytes # (Manual) Eosinophils # (Manual) Basophils # (Manual) PT INR Fibrinogen dRVVT Confirm Interp Factor V Activity POC ABG pH POC ABG pCO2 POC ABG pO2 ABG pO2 ABG HCO3 ABG Base Excess ABG Hemoglobin Oxyhemoglobin Sodium Potassium Chloride Carbon Dioxide BUN Creatinine Glucose POC Glucose 114 H 129 H 124 H Lactic Acid Calcium Ionized Calcium Phosphorus Magnesium Direct Bilirubin AST ALT Alkaline Phosphatase Lactate Dehydrogenase Troponin T C-Reactive Protein Total Protein Albumin Prealbumin Triglycerides Cholesterol LDL Cholesterol Direct HDL Cholesterol 25-OH Vitamin D Total PTH Intact Urine pH Urine WBC (Auto) Urine Creatinine Urine Total Protein Fluid Total Protein Vancomycin Trough Rheumatoid Factor Complement C4 Miscellaneous Test Crossmatch 12/05/16 12/05/16 12/05/16 05:00 05:00 05:18 WBC RBC Hgb Hct MCV MCH MCHC RDW Plt Count Lymph % (Auto) [place] % (Auto) Lymph # [place] # Baso # Seg Neutrophils % Seg Neuts % (Manual) Lymphocytes % (Manual) Monocytes % (Manual) Eosinophils % (Manual) Basophils % (Manual) Nucleated RBC % Seg Neutrophils # Seg Neutrophils # Man Lymphocytes # (Manual) Monocytes # (Manual) Eosinophils # (Manual) Basophils # (Manual) PT INR Fibrinogen dRVVT Confirm Interp Factor V Activity POC ABG pH POC ABG pCO2 POC ABG pO2 ABG pO2 ABG HCO3 ABG Base Excess ABG Hemoglobin Oxyhemoglobin Sodium Potassium Chloride Carbon Dioxide 21 L BUN 85 H Creatinine 1.9 H Glucose 131 H POC Glucose 154 H Lactic Acid Calcium Ionized Calcium Phosphorus Magnesium Direct Bilirubin AST ALT Alkaline Phosphatase Lactate Dehydrogenase Troponin T C-Reactive Protein 19.30 H Total Protein Albumin Prealbumin Triglycerides Cholesterol LDL Cholesterol Direct HDL Cholesterol 25-OH Vitamin D Total PTH Intact Urine pH Urine WBC (Auto) Urine Creatinine Urine Total Protein Fluid Total Protein Vancomycin Trough Rheumatoid Factor Complement C4 Miscellaneous Test Crossmatch 12/05/16 12/05/16 12/05/16 11:43 17:46 23:25 WBC RBC Hgb Hct MCV MCH MCHC RDW Plt Count Lymph % (Auto) [place] % (Auto) Lymph # [place] # Baso # Seg Neutrophils % Seg Neuts % (Manual) Lymphocytes % (Manual) Monocytes % (Manual) Eosinophils % (Manual) Basophils % (Manual) Nucleated RBC % Seg Neutrophils # Seg Neutrophils # Man Lymphocytes # (Manual) Monocytes # (Manual) Eosinophils # (Manual) Basophils # (Manual) PT INR Fibrinogen dRVVT Confirm Interp Factor V Activity POC ABG pH POC ABG pCO2 POC ABG pO2 ABG pO2 ABG HCO3 ABG Base Excess ABG Hemoglobin Oxyhemoglobin Sodium Potassium Chloride Carbon Dioxide BUN Creatinine Glucose POC Glucose 117 H 113 H 111 H Lactic Acid Calcium Ionized Calcium Phosphorus Magnesium Direct Bilirubin AST ALT Alkaline Phosphatase Lactate Dehydrogenase Troponin T C-Reactive Protein Total Protein Albumin Prealbumin Triglycerides Cholesterol LDL Cholesterol Direct HDL Cholesterol 25-OH Vitamin D Total PTH Intact Urine pH Urine WBC (Auto) Urine Creatinine Urine Total Protein Fluid Total Protein Vancomycin Trough Rheumatoid Factor Complement C4 Miscellaneous Test Crossmatch 12/05/16 12/06/16 12/06/16 Unknown 04:58 06:00 WBC RBC Hgb Hct MCV MCH MCHC RDW Plt Count Lymph % (Auto) [place] % (Auto) Lymph # [place] # Baso # Seg Neutrophils % Seg Neuts % (Manual) Lymphocytes % (Manual) Monocytes % (Manual) Eosinophils % (Manual) Basophils % (Manual) Nucleated RBC % Seg Neutrophils # Seg Neutrophils # Man Lymphocytes # (Manual) Monocytes # (Manual) Eosinophils # (Manual) Basophils # (Manual) PT INR Fibrinogen dRVVT Confirm Interp Factor V Activity POC ABG pH POC ABG pCO2 POC ABG pO2 ABG pO2 75.2 L ABG HCO3 ABG Base Excess -3.4 L ABG Hemoglobin 7.4 L Oxyhemoglobin 94.5 L Sodium Potassium Chloride Carbon Dioxide 20 L BUN 99 H Creatinine 2.1 H Glucose 126 H POC Glucose 145 H Lactic Acid Calcium Ionized Calcium Phosphorus 4.80 H Magnesium Direct Bilirubin AST ALT Alkaline Phosphatase Lactate Dehydrogenase Troponin T C-Reactive Protein Total Protein Albumin Prealbumin Triglycerides Cholesterol LDL Cholesterol Direct HDL Cholesterol 25-OH Vitamin D Total PTH Intact Urine pH Urine WBC (Auto) Urine Creatinine Urine Total Protein Fluid Total Protein Vancomycin Trough Rheumatoid Factor Complement C4 Miscellaneous Test Crossmatch 12/06/16 12/06/16 12/06/16 06:46 11:54 17:55 WBC RBC Hgb 8.3 L Hct 26.4 L MCV MCH MCHC RDW Plt Count Lymph % (Auto) [place] % (Auto) Lymph # [place] # Baso # Seg Neutrophils % Seg Neuts % (Manual) Lymphocytes % (Manual) Monocytes % (Manual) Eosinophils % (Manual) Basophils % (Manual) Nucleated RBC % Seg Neutrophils # Seg Neutrophils # Man Lymphocytes # (Manual) Monocytes # (Manual) Eosinophils # (Manual) Basophils # (Manual) PT INR Fibrinogen dRVVT Confirm Interp Factor V Activity POC ABG pH POC ABG pCO2 POC ABG pO2 ABG pO2 ABG HCO3 ABG Base Excess ABG Hemoglobin Oxyhemoglobin Sodium Potassium Chloride Carbon Dioxide BUN Creatinine Glucose POC Glucose 126 H 157 H Lactic Acid Calcium Ionized Calcium Phosphorus Magnesium Direct Bilirubin AST ALT Alkaline Phosphatase Lactate Dehydrogenase Troponin T C-Reactive Protein Total Protein Albumin Prealbumin Triglycerides Cholesterol LDL Cholesterol Direct HDL Cholesterol 25-OH Vitamin D Total PTH Intact Urine pH Urine WBC (Auto) Urine Creatinine Urine Total Protein Fluid Total Protein Vancomycin Trough Rheumatoid Factor Complement C4 Miscellaneous Test Crossmatch 12/06/16 12/07/16 12/07/16 23:59 05:34 06:30 WBC RBC Hgb Hct MCV MCH MCHC RDW Plt Count Lymph % (Auto) [place] % (Auto) Lymph # [place] # Baso # Seg Neutrophils % Seg Neuts % (Manual) Lymphocytes % (Manual) Monocytes % (Manual) Eosinophils % (Manual) Basophils % (Manual) Nucleated RBC % Seg Neutrophils # Seg Neutrophils # Man Lymphocytes # (Manual) Monocytes # (Manual) Eosinophils # (Manual) Basophils # (Manual) PT INR Fibrinogen dRVVT Confirm Interp Factor V Activity POC ABG pH POC ABG pCO2 POC ABG pO2 ABG pO2 ABG HCO3 ABG Base Excess ABG Hemoglobin Oxyhemoglobin Sodium Potassium Chloride Carbon Dioxide BUN 67 H Creatinine 1.4 H Glucose 126 H POC Glucose 129 H 129 H Lactic Acid Calcium Ionized Calcium Phosphorus Magnesium Direct Bilirubin AST ALT Alkaline Phosphatase Lactate Dehydrogenase Troponin T C-Reactive Protein Total Protein Albumin Prealbumin Triglycerides Cholesterol LDL Cholesterol Direct HDL Cholesterol 25-OH Vitamin D Total PTH Intact Urine pH Urine WBC (Auto) Urine Creatinine Urine Total Protein Fluid Total Protein Vancomycin Trough Rheumatoid Factor Complement C4 Miscellaneous Test Crossmatch 12/07/16 12/07/16 12/07/16 06:30 08:00 09:45 WBC 18.8 H RBC 2.52 L Hgb 6.9 L 6.8 L Hct 21.2 L 21.1 L MCV MCH 27 L MCHC RDW 18.0 H Plt Count Lymph % (Auto) [place] % (Auto) 9.9 H Lymph # [place] # 1.9 H Baso # Seg Neutrophils % 71.8 H Seg Neuts % (Manual) Lymphocytes % (Manual) Monocytes % (Manual) Eosinophils % (Manual) Basophils % (Manual) Nucleated RBC % Seg Neutrophils # 13.5 H Seg Neutrophils # Man Lymphocytes # (Manual) Monocytes # (Manual) Eosinophils # (Manual) Basophils # (Manual) PT INR Fibrinogen dRVVT Confirm Interp Factor V Activity POC ABG pH POC ABG pCO2 POC ABG pO2 ABG pO2 ABG HCO3 ABG Base Excess ABG Hemoglobin Oxyhemoglobin Sodium Potassium Chloride Carbon Dioxide BUN Creatinine Glucose POC Glucose Lactic Acid Calcium Ionized Calcium Phosphorus Magnesium Direct Bilirubin AST ALT Alkaline Phosphatase Lactate Dehydrogenase Troponin T C-Reactive Protein Total Protein Albumin Prealbumin Triglycerides Cholesterol LDL Cholesterol Direct HDL Cholesterol 25-OH Vitamin D Total PTH Intact Urine pH Urine WBC (Auto) Urine Creatinine Urine Total Protein Fluid Total Protein Vancomycin Trough Rheumatoid Factor Complement C4 Miscellaneous Test Crossmatch See Detail 12/07/16 12/07/16 12/07/16 11:44 18:19 23:59 WBC RBC Hgb Hct MCV MCH MCHC RDW Plt Count Lymph % (Auto) [place] % (Auto) Lymph # [place] # Baso # Seg Neutrophils % Seg Neuts % (Manual) Lymphocytes % (Manual) Monocytes % (Manual) Eosinophils % (Manual) Basophils % (Manual) Nucleated RBC % Seg Neutrophils # Seg Neutrophils # Man Lymphocytes # (Manual) Monocytes # (Manual) Eosinophils # (Manual) Basophils # (Manual) PT INR Fibrinogen dRVVT Confirm Interp Factor V Activity POC ABG pH POC ABG pCO2 POC ABG pO2 ABG pO2 ABG HCO3 ABG Base Excess ABG Hemoglobin Oxyhemoglobin Sodium Potassium Chloride Carbon Dioxide BUN Creatinine Glucose POC Glucose 137 H 138 H 133 H Lactic Acid Calcium Ionized Calcium Phosphorus Magnesium Direct Bilirubin AST ALT Alkaline Phosphatase Lactate Dehydrogenase Troponin T C-Reactive Protein Total Protein Albumin Prealbumin Triglycerides Cholesterol LDL Cholesterol Direct HDL Cholesterol 25-OH Vitamin D Total PTH Intact Urine pH Urine WBC (Auto) Urine Creatinine Urine Total Protein Fluid Total Protein Vancomycin Trough Rheumatoid Factor Complement C4 Miscellaneous Test Crossmatch 12/08/16 12/08/16 12/08/16 05:25 05:30 05:30 WBC 23.8 H RBC 2.88 L Hgb 8.1 L Hct 24.3 L MCV MCH MCHC RDW 16.7 H Plt Count Lymph % (Auto) [place] % (Auto) Lymph # [place] # Baso # Seg Neutrophils % Seg Neuts % (Manual) 76.0 H Lymphocytes % (Manual) 9.0 L Monocytes % (Manual) 9.0 H Eosinophils % (Manual) Basophils % (Manual) Nucleated RBC % Seg Neutrophils # Seg Neutrophils # Man 18.1 H Lymphocytes # (Manual) Monocytes # (Manual) 2.1 H Eosinophils # (Manual) Basophils # (Manual) PT INR Fibrinogen dRVVT Confirm Interp Factor V Activity POC ABG pH POC ABG pCO2 POC ABG pO2 ABG pO2 ABG HCO3 ABG Base Excess ABG Hemoglobin Oxyhemoglobin Sodium Potassium Chloride Carbon Dioxide 21 L BUN 76 H Creatinine 1.6 H Glucose 133 H POC Glucose 177 H Lactic Acid Calcium Ionized Calcium Phosphorus Magnesium Direct Bilirubin AST ALT Alkaline Phosphatase Lactate Dehydrogenase Troponin T C-Reactive Protein Total Protein Albumin Prealbumin Triglycerides Cholesterol LDL Cholesterol Direct HDL Cholesterol 25-OH Vitamin D Total PTH Intact Urine pH Urine WBC (Auto) Urine Creatinine Urine Total Protein Fluid Total Protein Vancomycin Trough Rheumatoid Factor Complement C4 Miscellaneous Test Crossmatch 12/08/16 12/08/16 12/09/16 11:45 18:00 00:00 WBC RBC Hgb Hct MCV MCH MCHC RDW Plt Count Lymph % (Auto) [place] % (Auto) Lymph # [place] # Baso # Seg Neutrophils % Seg Neuts % (Manual) Lymphocytes % (Manual) Monocytes % (Manual) Eosinophils % (Manual) Basophils % (Manual) Nucleated RBC % Seg Neutrophils # Seg Neutrophils # Man Lymphocytes # (Manual) Monocytes # (Manual) Eosinophils # (Manual) Basophils # (Manual) PT INR Fibrinogen dRVVT Confirm Interp Factor V Activity POC ABG pH POC ABG pCO2 POC ABG pO2 ABG pO2 ABG HCO3 ABG Base Excess ABG Hemoglobin Oxyhemoglobin Sodium Potassium Chloride Carbon Dioxide BUN Creatinine Glucose POC Glucose 163 H 123 H 137 H Lactic Acid Calcium Ionized Calcium Phosphorus Magnesium Direct Bilirubin AST ALT Alkaline Phosphatase Lactate Dehydrogenase Troponin T C-Reactive Protein Total Protein Albumin Prealbumin Triglycerides Cholesterol LDL Cholesterol Direct HDL Cholesterol 25-OH Vitamin D Total PTH Intact Urine pH Urine WBC (Auto) Urine Creatinine Urine Total Protein Fluid Total Protein Vancomycin Trough Rheumatoid Factor Complement C4 Miscellaneous Test Crossmatch 12/09/16 12/09/16 12/09/16 05:34 06:00 06:00 WBC 15.5 H RBC 2.87 L Hgb 8.0 L Hct 24.2 L MCV MCH MCHC RDW 17.2 H Plt Count Lymph % (Auto) [place] % (Auto) 11.6 H Lymph # [place] # 1.8 H Baso # Seg Neutrophils % 70.8 H Seg Neuts % (Manual) Lymphocytes % (Manual) Monocytes % (Manual) Eosinophils % (Manual) Basophils % (Manual) Nucleated RBC % Seg Neutrophils # 11.0 H Seg Neutrophils # Man Lymphocytes # (Manual) Monocytes # (Manual) Eosinophils # (Manual) Basophils # (Manual) PT INR Fibrinogen dRVVT Confirm Interp Factor V Activity POC ABG pH POC ABG pCO2 POC ABG pO2 ABG pO2 ABG HCO3 ABG Base Excess ABG Hemoglobin Oxyhemoglobin Sodium Potassium Chloride Carbon Dioxide BUN 51 H Creatinine Glucose 117 H POC Glucose 136 H Lactic Acid Calcium Ionized Calcium Phosphorus Magnesium Direct Bilirubin AST ALT Alkaline Phosphatase Lactate Dehydrogenase Troponin T C-Reactive Protein Total Protein Albumin Prealbumin Triglycerides Cholesterol LDL Cholesterol Direct HDL Cholesterol 25-OH Vitamin D Total PTH Intact Urine pH Urine WBC (Auto) Urine Creatinine Urine Total Protein Fluid Total Protein Vancomycin Trough Rheumatoid Factor Complement C4 Miscellaneous Test Crossmatch 12/09/16 12/09/16 12/09/16 12:29 17:52 23:10 WBC RBC Hgb Hct MCV MCH MCHC RDW Plt Count Lymph % (Auto) [place] % (Auto) Lymph # [place] # Baso # Seg Neutrophils % Seg Neuts % (Manual) Lymphocytes % (Manual) Monocytes % (Manual) Eosinophils % (Manual) Basophils % (Manual) Nucleated RBC % Seg Neutrophils # Seg Neutrophils # Man Lymphocytes # (Manual) Monocytes # (Manual) Eosinophils # (Manual) Basophils # (Manual) PT INR Fibrinogen dRVVT Confirm Interp Factor V Activity POC ABG pH POC ABG pCO2 POC ABG pO2 ABG pO2 ABG HCO3 ABG Base Excess ABG Hemoglobin Oxyhemoglobin Sodium Potassium Chloride Carbon Dioxide BUN Creatinine Glucose POC Glucose 139 H 140 H 129 H Lactic Acid Calcium Ionized Calcium Phosphorus Magnesium Direct Bilirubin AST ALT Alkaline Phosphatase Lactate Dehydrogenase Troponin T C-Reactive Protein Total Protein Albumin Prealbumin Triglycerides Cholesterol LDL Cholesterol Direct HDL Cholesterol 25-OH Vitamin D Total PTH Intact Urine pH Urine WBC (Auto) Urine Creatinine Urine Total Protein Fluid Total Protein Vancomycin Trough Rheumatoid Factor Complement C4 Miscellaneous Test Crossmatch 12/10/16 12/10/16 12/10/16 05:00 05:00 06:54 WBC 15.7 H RBC 2.87 L Hgb 8.2 L Hct 24.4 L MCV MCH MCHC RDW 17.2 H Plt Count Lymph % (Auto) [place] % (Auto) 8.3 H Lymph # [place] # 1.3 H Baso # Seg Neutrophils % 72.8 H Seg Neuts % (Manual) Lymphocytes % (Manual) Monocytes % (Manual) Eosinophils % (Manual) Basophils % (Manual) Nucleated RBC % Seg Neutrophils # 11.4 H Seg Neutrophils # Man Lymphocytes # (Manual) Monocytes # (Manual) Eosinophils # (Manual) Basophils # (Manual) PT INR Fibrinogen dRVVT Confirm Interp Factor V Activity POC ABG pH POC ABG pCO2 POC ABG pO2 ABG pO2 ABG HCO3 ABG Base Excess ABG Hemoglobin Oxyhemoglobin Sodium Potassium Chloride Carbon Dioxide BUN 64 H Creatinine 1.4 H Glucose 134 H POC Glucose 154 H Lactic Acid Calcium Ionized Calcium Phosphorus Magnesium Direct Bilirubin AST ALT Alkaline Phosphatase Lactate Dehydrogenase Troponin T C-Reactive Protein Total Protein Albumin Prealbumin Triglycerides Cholesterol LDL Cholesterol Direct HDL Cholesterol 25-OH Vitamin D Total PTH Intact Urine pH Urine WBC (Auto) Urine Creatinine Urine Total Protein Fluid Total Protein Vancomycin Trough Rheumatoid Factor Complement C4 Miscellaneous Test Crossmatch 12/10/16 12/10/16 12/10/16 11:58 17:29 23:52 WBC RBC Hgb Hct MCV MCH MCHC RDW Plt Count Lymph % (Auto) [place] % (Auto) Lymph # [place] # Baso # Seg Neutrophils % Seg Neuts % (Manual) Lymphocytes % (Manual) Monocytes % (Manual) Eosinophils % (Manual) Basophils % (Manual) Nucleated RBC % Seg Neutrophils # Seg Neutrophils # Man Lymphocytes # (Manual) Monocytes # (Manual) Eosinophils # (Manual) Basophils # (Manual) PT INR Fibrinogen dRVVT Confirm Interp Factor V Activity POC ABG pH POC ABG pCO2 POC ABG pO2 ABG pO2 ABG HCO3 ABG Base Excess ABG Hemoglobin Oxyhemoglobin Sodium Potassium Chloride Carbon Dioxide BUN Creatinine Glucose POC Glucose 144 H 163 H 125 H Lactic Acid Calcium Ionized Calcium Phosphorus Magnesium Direct Bilirubin AST ALT Alkaline Phosphatase Lactate Dehydrogenase Troponin T C-Reactive Protein Total Protein Albumin Prealbumin Triglycerides Cholesterol LDL Cholesterol Direct HDL Cholesterol 25-OH Vitamin D Total PTH Intact Urine pH Urine WBC (Auto) Urine Creatinine Urine Total Protein Fluid Total Protein Vancomycin Trough Rheumatoid Factor Complement C4 Miscellaneous Test Crossmatch 12/11/16 12/11/16 12/11/16 05:38 06:30 06:30 WBC 14.4 H RBC 2.76 L Hgb 7.7 L Hct 23.4 L MCV MCH MCHC RDW 17.2 H Plt Count Lymph % (Auto) [place] % (Auto) 8.8 H Lymph # [place] # 1.3 H Baso # Seg Neutrophils % 72.5 H Seg Neuts % (Manual) Lymphocytes % (Manual) Monocytes % (Manual) Eosinophils % (Manual) Basophils % (Manual) Nucleated RBC % Seg Neutrophils # 10.5 H Seg Neutrophils # Man Lymphocytes # (Manual) Monocytes # (Manual) Eosinophils # (Manual) Basophils # (Manual) PT INR Fibrinogen dRVVT Confirm Interp Factor V Activity POC ABG pH POC ABG pCO2 POC ABG pO2 ABG pO2 ABG HCO3 ABG Base Excess ABG Hemoglobin Oxyhemoglobin Sodium Potassium Chloride Carbon Dioxide BUN 43 H Creatinine Glucose 124 H POC Glucose 141 H Lactic Acid Calcium 8.3 L Ionized Calcium Phosphorus Magnesium 1.60 L Direct Bilirubin AST ALT Alkaline Phosphatase Lactate Dehydrogenase Troponin T C-Reactive Protein Total Protein Albumin Prealbumin Triglycerides Cholesterol LDL Cholesterol Direct HDL Cholesterol 25-OH Vitamin D Total PTH Intact Urine pH Urine WBC (Auto) Urine Creatinine Urine Total Protein Fluid Total Protein Vancomycin Trough Rheumatoid Factor Complement C4 Miscellaneous Test Crossmatch 12/11/16 12/11/16 12/11/16 11:15 17:59 23:48 WBC RBC Hgb Hct MCV MCH MCHC RDW Plt Count Lymph % (Auto) [place] % (Auto) Lymph # [place] # Baso # Seg Neutrophils % Seg Neuts % (Manual) Lymphocytes % (Manual) Monocytes % (Manual) Eosinophils % (Manual) Basophils % (Manual) Nucleated RBC % Seg Neutrophils # Seg Neutrophils # Man Lymphocytes # (Manual) Monocytes # (Manual) Eosinophils # (Manual) Basophils # (Manual) PT INR Fibrinogen dRVVT Confirm Interp Factor V Activity POC ABG pH POC ABG pCO2 POC ABG pO2 ABG pO2 ABG HCO3 ABG Base Excess ABG Hemoglobin Oxyhemoglobin Sodium Potassium Chloride Carbon Dioxide BUN Creatinine Glucose POC Glucose 188 H 106 H 119 H Lactic Acid Calcium Ionized Calcium Phosphorus Magnesium Direct Bilirubin AST ALT Alkaline Phosphatase Lactate Dehydrogenase Troponin T C-Reactive Protein Total Protein Albumin Prealbumin Triglycerides Cholesterol LDL Cholesterol Direct HDL Cholesterol 25-OH Vitamin D Total PTH Intact Urine pH Urine WBC (Auto) Urine Creatinine Urine Total Protein Fluid Total Protein Vancomycin Trough Rheumatoid Factor Complement C4 Miscellaneous Test Crossmatch 12/12/16 12/12/16 12/12/16 05:00 06:01 12:20 WBC 16.7 H RBC 2.87 L Hgb 8.0 L Hct 24.2 L MCV MCH MCHC RDW 17.6 H Plt Count Lymph % (Auto) [place] % (Auto) Lymph # [place] # 1.2 H Baso # Seg Neutrophils % 75.3 H Seg Neuts % (Manual) Lymphocytes % (Manual) Monocytes % (Manual) Eosinophils % (Manual) Basophils % (Manual) Nucleated RBC % Seg Neutrophils # 12.6 H Seg Neutrophils # Man Lymphocytes # (Manual) Monocytes # (Manual) Eosinophils # (Manual) Basophils # (Manual) PT INR Fibrinogen dRVVT Confirm Interp Factor V Activity POC ABG pH POC ABG pCO2 POC ABG pO2 ABG pO2 ABG HCO3 ABG Base Excess ABG Hemoglobin Oxyhemoglobin Sodium Potassium Chloride Carbon Dioxide BUN Creatinine Glucose POC Glucose 134 H 149 H Lactic Acid Calcium Ionized Calcium Phosphorus Magnesium Direct Bilirubin AST ALT Alkaline Phosphatase Lactate Dehydrogenase Troponin T C-Reactive Protein Total Protein Albumin Prealbumin Triglycerides Cholesterol LDL Cholesterol Direct HDL Cholesterol 25-OH Vitamin D Total PTH Intact Urine pH Urine WBC (Auto) Urine Creatinine Urine Total Protein Fluid Total Protein Vancomycin Trough Rheumatoid Factor Complement C4 Miscellaneous Test Crossmatch 12/12/16 12/12/16 12/12/16 17:38 23:01 Unknown WBC RBC Hgb Hct MCV MCH MCHC RDW Plt Count Lymph % (Auto) [place] % (Auto) Lymph # [place] # Baso # Seg Neutrophils % Seg Neuts % (Manual) Lymphocytes % (Manual) Monocytes % (Manual) Eosinophils % (Manual) Basophils % (Manual) Nucleated RBC % Seg Neutrophils # Seg Neutrophils # Man Lymphocytes # (Manual) Monocytes # (Manual) Eosinophils # (Manual) Basophils # (Manual) PT INR Fibrinogen dRVVT Confirm Interp Factor V Activity POC ABG pH POC ABG pCO2 POC ABG pO2 ABG pO2 ABG HCO3 ABG Base Excess ABG Hemoglobin Oxyhemoglobin Sodium Potassium Chloride Carbon Dioxide BUN 60 H Creatinine 1.3 H Glucose 126 H POC Glucose 127 H 144 H Lactic Acid Calcium Ionized Calcium Phosphorus Magnesium Direct Bilirubin AST ALT Alkaline Phosphatase Lactate Dehydrogenase Troponin T C-Reactive Protein Total Protein Albumin Prealbumin Triglycerides Cholesterol LDL Cholesterol Direct HDL Cholesterol 25-OH Vitamin D Total PTH Intact Urine pH Urine WBC (Auto) Urine Creatinine Urine Total Protein Fluid Total Protein Vancomycin Trough Rheumatoid Factor Complement C4 Miscellaneous Test Crossmatch 12/13/16 12/13/16 12/13/16 04:00 04:00 05:19 WBC 18.7 H RBC 2.89 L Hgb 8.3 L Hct 24.6 L MCV MCH MCHC RDW 17.5 H Plt Count Lymph % (Auto) [place] % (Auto) Lymph # [place] # 1.3 H Baso # Seg Neutrophils % 71.5 H Seg Neuts % (Manual) Lymphocytes % (Manual) Monocytes % (Manual) Eosinophils % (Manual) Basophils % (Manual) Nucleated RBC % Seg Neutrophils # 13.4 H Seg Neutrophils # Man Lymphocytes # (Manual) Monocytes # (Manual) Eosinophils # (Manual) Basophils # (Manual) PT INR Fibrinogen dRVVT Confirm Interp Factor V Activity POC ABG pH POC ABG pCO2 POC ABG pO2 ABG pO2 ABG HCO3 ABG Base Excess ABG Hemoglobin Oxyhemoglobin Sodium Potassium Chloride Carbon Dioxide BUN 73 H Creatinine 1.5 H Glucose 141 H POC Glucose 171 H Lactic Acid Calcium Ionized Calcium Phosphorus Magnesium Direct Bilirubin AST ALT Alkaline Phosphatase Lactate Dehydrogenase Troponin T C-Reactive Protein Total Protein Albumin Prealbumin Triglycerides Cholesterol LDL Cholesterol Direct HDL Cholesterol 25-OH Vitamin D Total PTH Intact Urine pH Urine WBC (Auto) Urine Creatinine Urine Total Protein Fluid Total Protein Vancomycin Trough Rheumatoid Factor Complement C4 Miscellaneous Test Crossmatch 12/13/16 12/13/16 12/14/16 12:28 16:48 00:01 WBC RBC Hgb Hct MCV MCH MCHC RDW Plt Count Lymph % (Auto) [place] % (Auto) Lymph # [place] # Baso # Seg Neutrophils % Seg Neuts % (Manual) Lymphocytes % (Manual) Monocytes % (Manual) Eosinophils % (Manual) Basophils % (Manual) Nucleated RBC % Seg Neutrophils # Seg Neutrophils # Man Lymphocytes # (Manual) Monocytes # (Manual) Eosinophils # (Manual) Basophils # (Manual) PT INR Fibrinogen dRVVT Confirm Interp Factor V Activity POC ABG pH POC ABG pCO2 POC ABG pO2 ABG pO2 ABG HCO3 ABG Base Excess ABG Hemoglobin Oxyhemoglobin Sodium Potassium Chloride Carbon Dioxide BUN Creatinine Glucose POC Glucose 206 H 173 H 139 H Lactic Acid Calcium Ionized Calcium Phosphorus Magnesium Direct Bilirubin AST ALT Alkaline Phosphatase Lactate Dehydrogenase Troponin T C-Reactive Protein Total Protein Albumin Prealbumin Triglycerides Cholesterol LDL Cholesterol Direct HDL Cholesterol 25-OH Vitamin D Total PTH Intact Urine pH Urine WBC (Auto) Urine Creatinine Urine Total Protein Fluid Total Protein Vancomycin Trough Rheumatoid Factor Complement C4 Miscellaneous Test Crossmatch 12/14/16 12/14/16 12/14/16 05:16 06:10 11:17 WBC RBC Hgb Hct MCV MCH MCHC RDW Plt Count Lymph % (Auto) [place] % (Auto) Lymph # [place] # Baso # Seg Neutrophils % Seg Neuts % (Manual) Lymphocytes % (Manual) Monocytes % (Manual) Eosinophils % (Manual) Basophils % (Manual) Nucleated RBC % Seg Neutrophils # Seg Neutrophils # Man Lymphocytes # (Manual) Monocytes # (Manual) Eosinophils # (Manual) Basophils # (Manual) PT INR Fibrinogen dRVVT Confirm Interp Factor V Activity POC ABG pH POC ABG pCO2 POC ABG pO2 ABG pO2 ABG HCO3 ABG Base Excess ABG Hemoglobin Oxyhemoglobin Sodium Potassium Chloride Carbon Dioxide BUN 57 H Creatinine 1.4 H Glucose 135 H POC Glucose 158 H 137 H Lactic Acid Calcium Ionized Calcium Phosphorus Magnesium Direct Bilirubin AST ALT Alkaline Phosphatase Lactate Dehydrogenase Troponin T C-Reactive Protein Total Protein Albumin Prealbumin Triglycerides Cholesterol LDL Cholesterol Direct HDL Cholesterol 25-OH Vitamin D Total PTH Intact Urine pH Urine WBC (Auto) Urine Creatinine Urine Total Protein Fluid Total Protein Vancomycin Trough Rheumatoid Factor Complement C4 Miscellaneous Test Crossmatch 12/14/16 12/14/16 12/15/16 17:52 23:27 04:00 WBC RBC Hgb Hct MCV MCH MCHC RDW Plt Count Lymph % (Auto) [place] % (Auto) Lymph # [place] # Baso # Seg Neutrophils % Seg Neuts % (Manual) Lymphocytes % (Manual) Monocytes % (Manual) Eosinophils % (Manual) Basophils % (Manual) Nucleated RBC % Seg Neutrophils # Seg Neutrophils # Man Lymphocytes # (Manual) Monocytes # (Manual) Eosinophils # (Manual) Basophils # (Manual) PT INR Fibrinogen dRVVT Confirm Interp Factor V Activity POC ABG pH POC ABG pCO2 POC ABG pO2 ABG pO2 ABG HCO3 ABG Base Excess ABG Hemoglobin Oxyhemoglobin Sodium Potassium Chloride 97.9 L Carbon Dioxide BUN 75 H Creatinine 1.6 H Glucose 122 H POC Glucose 149 H 163 H Lactic Acid Calcium Ionized Calcium Phosphorus 5.20 H Magnesium Direct Bilirubin AST ALT Alkaline Phosphatase Lactate Dehydrogenase Troponin T C-Reactive Protein Total Protein Albumin Prealbumin Triglycerides Cholesterol LDL Cholesterol Direct HDL Cholesterol 25-OH Vitamin D Total PTH Intact Urine pH Urine WBC (Auto) Urine Creatinine Urine Total Protein Fluid Total Protein Vancomycin Trough Rheumatoid Factor Complement C4 Miscellaneous Test Crossmatch 12/15/16 12/15/16 12/15/16 05:50 11:24 17:01 WBC RBC Hgb Hct MCV MCH MCHC RDW Plt Count Lymph % (Auto) [place] % (Auto) Lymph # [place] # Baso # Seg Neutrophils % Seg Neuts % (Manual) Lymphocytes % (Manual) Monocytes % (Manual) Eosinophils % (Manual) Basophils % (Manual) Nucleated RBC % Seg Neutrophils # Seg Neutrophils # Man Lymphocytes # (Manual) Monocytes # (Manual) Eosinophils # (Manual) Basophils # (Manual) PT INR Fibrinogen dRVVT Confirm Interp Factor V Activity POC ABG pH POC ABG pCO2 POC ABG pO2 ABG pO2 ABG HCO3 ABG Base Excess ABG Hemoglobin Oxyhemoglobin Sodium Potassium Chloride Carbon Dioxide BUN Creatinine Glucose POC Glucose 150 H 146 H 167 H Lactic Acid Calcium Ionized Calcium Phosphorus Magnesium Direct Bilirubin AST ALT Alkaline Phosphatase Lactate Dehydrogenase Troponin T C-Reactive Protein Total Protein Albumin Prealbumin Triglycerides Cholesterol LDL Cholesterol Direct HDL Cholesterol 25-OH Vitamin D Total PTH Intact Urine pH Urine WBC (Auto) Urine Creatinine Urine Total Protein Fluid Total Protein Vancomycin Trough Rheumatoid Factor Complement C4 Miscellaneous Test Crossmatch 12/15/16 12/16/16 12/16/16 23:34 05:25 11:24 WBC RBC Hgb Hct MCV MCH MCHC RDW Plt Count Lymph % (Auto) [place] % (Auto) Lymph # [place] # Baso # Seg Neutrophils % Seg Neuts % (Manual) Lymphocytes % (Manual) Monocytes % (Manual) Eosinophils % (Manual) Basophils % (Manual) Nucleated RBC % Seg Neutrophils # Seg Neutrophils # Man Lymphocytes # (Manual) Monocytes # (Manual) Eosinophils # (Manual) Basophils # (Manual) PT INR Fibrinogen dRVVT Confirm Interp Factor V Activity POC ABG pH POC ABG pCO2 POC ABG pO2 ABG pO2 ABG HCO3 ABG Base Excess ABG Hemoglobin Oxyhemoglobin Sodium Potassium Chloride Carbon Dioxide BUN Creatinine Glucose POC Glucose 127 H 139 H 165 H Lactic Acid Calcium Ionized Calcium Phosphorus Magnesium Direct Bilirubin AST ALT Alkaline Phosphatase Lactate Dehydrogenase Troponin T C-Reactive Protein Total Protein Albumin Prealbumin Triglycerides Cholesterol LDL Cholesterol Direct HDL Cholesterol 25-OH Vitamin D Total PTH Intact Urine pH Urine WBC (Auto) Urine Creatinine Urine Total Protein Fluid Total Protein Vancomycin Trough Rheumatoid Factor Complement C4 Miscellaneous Test Crossmatch 12/16/16 12/16/16 12/16/16 15:30 16:25 17:31 WBC 17.8 H RBC 2.38 L Hgb 6.4 L Hct 20.3 L MCV MCH 27 L MCHC RDW 17.4 H Plt Count Lymph % (Auto) [place] % (Auto) Lymph # [place] # Baso # Seg Neutrophils % Seg Neuts % (Manual) Lymphocytes % (Manual) Monocytes % (Manual) 10.0 H Eosinophils % (Manual) Basophils % (Manual) Nucleated RBC % Seg Neutrophils # Seg Neutrophils # Man 8.5 H Lymphocytes # (Manual) Monocytes # (Manual) 1.8 H Eosinophils # (Manual) Basophils # (Manual) PT INR Fibrinogen dRVVT Confirm Interp Factor V Activity POC ABG pH POC ABG pCO2 POC ABG pO2 ABG pO2 ABG HCO3 ABG Base Excess ABG Hemoglobin Oxyhemoglobin Sodium Potassium Chloride Carbon Dioxide BUN Creatinine Glucose POC Glucose 176 H Lactic Acid Calcium Ionized Calcium Phosphorus Magnesium Direct Bilirubin AST ALT Alkaline Phosphatase Lactate Dehydrogenase Troponin T C-Reactive Protein Total Protein Albumin Prealbumin Triglycerides Cholesterol LDL Cholesterol Direct HDL Cholesterol 25-OH Vitamin D Total PTH Intact Urine pH Urine WBC (Auto) Urine Creatinine Urine Total Protein Fluid Total Protein Vancomycin Trough Rheumatoid Factor Complement C4 Miscellaneous Test Crossmatch See Detail 12/17/16 12/17/16 12/17/16 00:14 04:00 05:00 WBC 20.0 H RBC 2.99 L Hgb 8.5 L Hct 25.7 L MCV MCH MCHC RDW 17.2 H Plt Count Lymph % (Auto) [place] % (Auto) Lymph # [place] # Baso # Seg Neutrophils % Seg Neuts % (Manual) Lymphocytes % (Manual) Monocytes % (Manual) Eosinophils % (Manual) Basophils % (Manual) Nucleated RBC % Seg Neutrophils # Seg Neutrophils # Man Lymphocytes # (Manual) Monocytes # (Manual) Eosinophils # (Manual) Basophils # (Manual) PT INR Fibrinogen dRVVT Confirm Interp Factor V Activity POC ABG pH POC ABG pCO2 POC ABG pO2 ABG pO2 ABG HCO3 ABG Base Excess ABG Hemoglobin Oxyhemoglobin Sodium Potassium Chloride 97.7 L Carbon Dioxide BUN 73 H Creatinine 1.7 H Glucose 136 H POC Glucose 148 H Lactic Acid Calcium Ionized Calcium Phosphorus 2.20 L Magnesium 2.70 H Direct Bilirubin AST ALT Alkaline Phosphatase Lactate Dehydrogenase Troponin T C-Reactive Protein Total Protein Albumin Prealbumin Triglycerides Cholesterol LDL Cholesterol Direct HDL Cholesterol 25-OH Vitamin D Total PTH Intact Urine pH Urine WBC (Auto) Urine Creatinine Urine Total Protein Fluid Total Protein Vancomycin Trough Rheumatoid Factor Complement C4 Miscellaneous Test Crossmatch 12/17/16 12/17/16 12/17/16 05:39 12:50 16:32 WBC RBC Hgb Hct MCV MCH MCHC RDW Plt Count Lymph % (Auto) [place] % (Auto) Lymph # [place] # Baso # Seg Neutrophils % Seg Neuts % (Manual) Lymphocytes % (Manual) Monocytes % (Manual) Eosinophils % (Manual) Basophils % (Manual) Nucleated RBC % Seg Neutrophils # Seg Neutrophils # Man Lymphocytes # (Manual) Monocytes # (Manual) Eosinophils # (Manual) Basophils # (Manual) PT INR Fibrinogen dRVVT Confirm Interp Factor V Activity POC ABG pH POC ABG pCO2 POC ABG pO2 ABG pO2 ABG HCO3 ABG Base Excess ABG Hemoglobin Oxyhemoglobin Sodium Potassium Chloride Carbon Dioxide BUN Creatinine Glucose POC Glucose 162 H 146 H 169 H Lactic Acid Calcium Ionized Calcium Phosphorus Magnesium Direct Bilirubin AST ALT Alkaline Phosphatase Lactate Dehydrogenase Troponin T C-Reactive Protein Total Protein Albumin Prealbumin Triglycerides Cholesterol LDL Cholesterol Direct HDL Cholesterol 25-OH Vitamin D Total PTH Intact Urine pH Urine WBC (Auto) Urine Creatinine Urine Total Protein Fluid Total Protein Vancomycin Trough Rheumatoid Factor Complement C4 Miscellaneous Test Crossmatch 12/17/16 12/18/16 12/18/16 23:57 05:00 05:32 WBC RBC Hgb Hct MCV MCH MCHC RDW Plt Count Lymph % (Auto) [place] % (Auto) Lymph # [place] # Baso # Seg Neutrophils % Seg Neuts % (Manual) Lymphocytes % (Manual) Monocytes % (Manual) Eosinophils % (Manual) Basophils % (Manual) Nucleated RBC % Seg Neutrophils # Seg Neutrophils # Man Lymphocytes # (Manual) Monocytes # (Manual) Eosinophils # (Manual) Basophils # (Manual) PT INR Fibrinogen dRVVT Confirm Interp Factor V Activity POC ABG pH POC ABG pCO2 POC ABG pO2 ABG pO2 ABG HCO3 ABG Base Excess ABG Hemoglobin Oxyhemoglobin Sodium Potassium Chloride 97.0 L Carbon Dioxide BUN 63 H Creatinine 1.4 H Glucose 174 H POC Glucose 145 H 201 H Lactic Acid Calcium Ionized Calcium Phosphorus 1.70 L D Magnesium Direct Bilirubin AST ALT Alkaline Phosphatase 257 H Lactate Dehydrogenase Troponin T C-Reactive Protein Total Protein 5.9 L Albumin 1.8 L Prealbumin Triglycerides Cholesterol LDL Cholesterol Direct HDL Cholesterol 25-OH Vitamin D Total PTH Intact Urine pH Urine WBC (Auto) Urine Creatinine Urine Total Protein Fluid Total Protein Vancomycin Trough Rheumatoid Factor Complement C4 Miscellaneous Test Crossmatch 12/18/16 12/18/16 12/18/16 11:43 16:52 23:52 WBC RBC Hgb Hct MCV MCH MCHC RDW Plt Count Lymph % (Auto) [place] % (Auto) Lymph # [place] # Baso # Seg Neutrophils % Seg Neuts % (Manual) Lymphocytes % (Manual) Monocytes % (Manual) Eosinophils % (Manual) Basophils % (Manual) Nucleated RBC % Seg Neutrophils # Seg Neutrophils # Man Lymphocytes # (Manual) Monocytes # (Manual) Eosinophils # (Manual) Basophils # (Manual) PT INR Fibrinogen dRVVT Confirm Interp Factor V Activity POC ABG pH POC ABG pCO2 POC ABG pO2 ABG pO2 ABG HCO3 ABG Base Excess ABG Hemoglobin Oxyhemoglobin Sodium Potassium Chloride Carbon Dioxide BUN Creatinine Glucose POC Glucose 177 H 110 H 162 H Lactic Acid Calcium Ionized Calcium Phosphorus Magnesium Direct Bilirubin AST ALT Alkaline Phosphatase Lactate Dehydrogenase Troponin T C-Reactive Protein Total Protein Albumin Prealbumin Triglycerides Cholesterol LDL Cholesterol Direct HDL Cholesterol 25-OH Vitamin D Total PTH Intact Urine pH Urine WBC (Auto) Urine Creatinine Urine Total Protein Fluid Total Protein Vancomycin Trough Rheumatoid Factor Complement C4 Miscellaneous Test Crossmatch 12/19/16 12/19/16 12/19/16 05:02 05:24 09:30 WBC 20.1 H RBC 2.73 L Hgb 7.6 L Hct 23.6 L MCV MCH MCHC RDW 17.6 H Plt Count Lymph % (Auto) [place] % (Auto) Lymph # [place] # Baso # Seg Neutrophils % Seg Neuts % (Manual) Lymphocytes % (Manual) 13.0 L Monocytes % (Manual) Eosinophils % (Manual) Basophils % (Manual) Nucleated RBC % 1.0 H Seg Neutrophils # Seg Neutrophils # Man 12.9 H Lymphocytes # (Manual) Monocytes # (Manual) 1.4 H Eosinophils # (Manual) Basophils # (Manual) 0.2 H PT INR Fibrinogen dRVVT Confirm Interp Factor V Activity POC ABG pH POC ABG pCO2 POC ABG pO2 ABG pO2 ABG HCO3 ABG Base Excess ABG Hemoglobin Oxyhemoglobin Sodium Potassium Chloride 97.8 L Carbon Dioxide BUN 84 H Creatinine 1.6 H Glucose 133 H POC Glucose 134 H Lactic Acid Calcium Ionized Calcium Phosphorus Magnesium Direct Bilirubin AST ALT Alkaline Phosphatase Lactate Dehydrogenase Troponin T C-Reactive Protein Total Protein Albumin Prealbumin Triglycerides Cholesterol LDL Cholesterol Direct HDL Cholesterol 25-OH Vitamin D Total PTH Intact Urine pH Urine WBC (Auto) Urine Creatinine Urine Total Protein Fluid Total Protein Vancomycin Trough Rheumatoid Factor Complement C4 Miscellaneous Test Crossmatch 12/19/16 12/19/16 12/19/16 09:36 11:12 18:29 WBC RBC Hgb Hct MCV MCH MCHC RDW Plt Count Lymph % (Auto) [place] % (Auto) Lymph # [place] # Baso # Seg Neutrophils % Seg Neuts % (Manual) Lymphocytes % (Manual) Monocytes % (Manual) Eosinophils % (Manual) Basophils % (Manual) Nucleated RBC % Seg Neutrophils # Seg Neutrophils # Man Lymphocytes # (Manual) Monocytes # (Manual) Eosinophils # (Manual) Basophils # (Manual) PT INR Fibrinogen dRVVT Confirm Interp Factor V Activity POC ABG pH 7.503 H POC ABG pCO2 30.1 L POC ABG pO2 ABG pO2 ABG HCO3 ABG Base Excess ABG Hemoglobin Oxyhemoglobin Sodium Potassium Chloride Carbon Dioxide BUN Creatinine Glucose POC Glucose 138 H 156 H Lactic Acid Calcium Ionized Calcium Phosphorus Magnesium Direct Bilirubin AST ALT Alkaline Phosphatase Lactate Dehydrogenase Troponin T C-Reactive Protein Total Protein Albumin Prealbumin Triglycerides Cholesterol LDL Cholesterol Direct HDL Cholesterol 25-OH Vitamin D Total PTH Intact Urine pH Urine WBC (Auto) Urine Creatinine Urine Total Protein Fluid Total Protein Vancomycin Trough Rheumatoid Factor Complement C4 Miscellaneous Test Crossmatch 12/20/16 12/20/16 12/20/16 00:03 06:17 07:07 WBC RBC Hgb Hct MCV MCH MCHC RDW Plt Count Lymph % (Auto) [place] % (Auto) Lymph # [place] # Baso # Seg Neutrophils % Seg Neuts % (Manual) Lymphocytes % (Manual) Monocytes % (Manual) Eosinophils % (Manual) Basophils % (Manual) Nucleated RBC % Seg Neutrophils # Seg Neutrophils # Man Lymphocytes # (Manual) Monocytes # (Manual) Eosinophils # (Manual) Basophils # (Manual) PT INR Fibrinogen dRVVT Confirm Interp Factor V Activity POC ABG pH POC ABG pCO2 POC ABG pO2 ABG pO2 ABG HCO3 ABG Base Excess ABG Hemoglobin Oxyhemoglobin Sodium Potassium Chloride 97.1 L Carbon Dioxide 20 L BUN 97 H Creatinine 1.8 H Glucose 153 H POC Glucose 152 H 175 H Lactic Acid Calcium Ionized Calcium Phosphorus Magnesium Direct Bilirubin AST ALT Alkaline Phosphatase Lactate Dehydrogenase Troponin T C-Reactive Protein Total Protein Albumin Prealbumin Triglycerides Cholesterol LDL Cholesterol Direct HDL Cholesterol 25-OH Vitamin D Total PTH Intact Urine pH Urine WBC (Auto) Urine Creatinine Urine Total Protein Fluid Total Protein Vancomycin Trough Rheumatoid Factor Complement C4 Miscellaneous Test Crossmatch 12/20/16 12/20/16 12/20/16 12:00 17:42 23:53 WBC RBC Hgb Hct MCV MCH MCHC RDW Plt Count Lymph % (Auto) [place] % (Auto) Lymph # [place] # Baso # Seg Neutrophils % Seg Neuts % (Manual) Lymphocytes % (Manual) Monocytes % (Manual) Eosinophils % (Manual) Basophils % (Manual) Nucleated RBC % Seg Neutrophils # Seg Neutrophils # Man Lymphocytes # (Manual) Monocytes # (Manual) Eosinophils # (Manual) Basophils # (Manual) PT INR Fibrinogen dRVVT Confirm Interp Factor V Activity POC ABG pH POC ABG pCO2 POC ABG pO2 ABG pO2 ABG HCO3 ABG Base Excess ABG Hemoglobin Oxyhemoglobin Sodium Potassium Chloride Carbon Dioxide BUN Creatinine Glucose POC Glucose 141 H 156 H 132 H Lactic Acid Calcium Ionized Calcium Phosphorus Magnesium Direct Bilirubin AST ALT Alkaline Phosphatase Lactate Dehydrogenase Troponin T C-Reactive Protein Total Protein Albumin Prealbumin Triglycerides Cholesterol LDL Cholesterol Direct HDL Cholesterol 25-OH Vitamin D Total PTH Intact Urine pH Urine WBC (Auto) Urine Creatinine Urine Total Protein Fluid Total Protein Vancomycin Trough Rheumatoid Factor Complement C4 Miscellaneous Test Crossmatch 12/21/16 12/21/16 12/21/16 05:49 08:50 12:19 WBC RBC Hgb Hct MCV MCH MCHC RDW Plt Count Lymph % (Auto) [place] % (Auto) Lymph # [place] # Baso # Seg Neutrophils % Seg Neuts % (Manual) Lymphocytes % (Manual) Monocytes % (Manual) Eosinophils % (Manual) Basophils % (Manual) Nucleated RBC % Seg Neutrophils # Seg Neutrophils # Man Lymphocytes # (Manual) Monocytes # (Manual) Eosinophils # (Manual) Basophils # (Manual) PT INR Fibrinogen dRVVT Confirm Interp Factor V Activity POC ABG pH POC ABG pCO2 POC ABG pO2 ABG pO2 ABG HCO3 ABG Base Excess ABG Hemoglobin Oxyhemoglobin Sodium Potassium 5.2 H D Chloride Carbon Dioxide BUN 63 H Creatinine Glucose 122 H POC Glucose 132 H 136 H Lactic Acid Calcium 8.3 L Ionized Calcium Phosphorus Magnesium Direct Bilirubin AST ALT Alkaline Phosphatase Lactate Dehydrogenase Troponin T C-Reactive Protein Total Protein Albumin Prealbumin Triglycerides Cholesterol LDL Cholesterol Direct HDL Cholesterol 25-OH Vitamin D Total PTH Intact Urine pH Urine WBC (Auto) Urine Creatinine Urine Total Protein Fluid Total Protein Vancomycin Trough Rheumatoid Factor Complement C4 Miscellaneous Test Crossmatch 12/21/16 12/21/16 12/22/16 17:22 23:58 05:49 WBC RBC Hgb Hct MCV MCH MCHC RDW Plt Count Lymph % (Auto) [place] % (Auto) Lymph # [place] # Baso # Seg Neutrophils % Seg Neuts % (Manual) Lymphocytes % (Manual) Monocytes % (Manual) Eosinophils % (Manual) Basophils % (Manual) Nucleated RBC % Seg Neutrophils # Seg Neutrophils # Man Lymphocytes # (Manual) Monocytes # (Manual) Eosinophils # (Manual) Basophils # (Manual) PT INR Fibrinogen dRVVT Confirm Interp Factor V Activity POC ABG pH POC ABG pCO2 POC ABG pO2 ABG pO2 ABG HCO3 ABG Base Excess ABG Hemoglobin Oxyhemoglobin Sodium Potassium Chloride Carbon Dioxide BUN Creatinine Glucose POC Glucose 135 H 149 H 140 H Lactic Acid Calcium Ionized Calcium Phosphorus Magnesium Direct Bilirubin AST ALT Alkaline Phosphatase Lactate Dehydrogenase Troponin T C-Reactive Protein Total Protein Albumin Prealbumin Triglycerides Cholesterol LDL Cholesterol Direct HDL Cholesterol 25-OH Vitamin D Total PTH Intact Urine pH Urine WBC (Auto) Urine Creatinine Urine Total Protein Fluid Total Protein Vancomycin Trough Rheumatoid Factor Complement C4 Miscellaneous Test Crossmatch 12/22/16 12/22/16 12/22/16 06:10 11:17 17:31 WBC RBC Hgb Hct MCV MCH MCHC RDW Plt Count Lymph % (Auto) [place] % (Auto) Lymph # [place] # Baso # Seg Neutrophils % Seg Neuts % (Manual) Lymphocytes % (Manual) Monocytes % (Manual) Eosinophils % (Manual) Basophils % (Manual) Nucleated RBC % Seg Neutrophils # Seg Neutrophils # Man Lymphocytes # (Manual) Monocytes # (Manual) Eosinophils # (Manual) Basophils # (Manual) PT INR Fibrinogen dRVVT Confirm Interp Factor V Activity POC ABG pH POC ABG pCO2 POC ABG pO2 ABG pO2 ABG HCO3 ABG Base Excess ABG Hemoglobin Oxyhemoglobin Sodium Potassium Chloride Carbon Dioxide BUN 76 H Creatinine 1.5 H Glucose 241 H POC Glucose 193 H 148 H Lactic Acid Calcium Ionized Calcium Phosphorus Magnesium Direct Bilirubin AST ALT Alkaline Phosphatase Lactate Dehydrogenase Troponin T C-Reactive Protein Total Protein Albumin Prealbumin Triglycerides Cholesterol LDL Cholesterol Direct HDL Cholesterol 25-OH Vitamin D Total PTH Intact Urine pH Urine WBC (Auto) Urine Creatinine Urine Total Protein Fluid Total Protein Vancomycin Trough Rheumatoid Factor Complement C4 Miscellaneous Test Crossmatch 12/22/16 12/23/16 12/23/16 23:58 05:00 05:26 WBC RBC Hgb Hct MCV MCH MCHC RDW Plt Count Lymph % (Auto) [place] % (Auto) Lymph # [place] # Baso # Seg Neutrophils % Seg Neuts % (Manual) Lymphocytes % (Manual) Monocytes % (Manual) Eosinophils % (Manual) Basophils % (Manual) Nucleated RBC % Seg Neutrophils # Seg Neutrophils # Man Lymphocytes # (Manual) Monocytes # (Manual) Eosinophils # (Manual) Basophils # (Manual) PT INR Fibrinogen dRVVT Confirm Interp Factor V Activity POC ABG pH POC ABG pCO2 POC ABG pO2 ABG pO2 ABG HCO3 ABG Base Excess ABG Hemoglobin Oxyhemoglobin Sodium Potassium Chloride Carbon Dioxide BUN 49 H Creatinine Glucose 143 H POC Glucose 165 H 154 H Lactic Acid Calcium 8.2 L Ionized Calcium Phosphorus Magnesium 1.60 L Direct Bilirubin AST ALT Alkaline Phosphatase Lactate Dehydrogenase Troponin T C-Reactive Protein Total Protein Albumin Prealbumin Triglycerides Cholesterol LDL Cholesterol Direct HDL Cholesterol 25-OH Vitamin D Total PTH Intact Urine pH Urine WBC (Auto) Urine Creatinine Urine Total Protein Fluid Total Protein Vancomycin Trough Rheumatoid Factor Complement C4 Miscellaneous Test Crossmatch 12/23/16 12/23/16 12/24/16 12:35 17:01 00:01 WBC RBC Hgb Hct MCV MCH MCHC RDW Plt Count Lymph % (Auto) [place] % (Auto) Lymph # [place] # Baso # Seg Neutrophils % Seg Neuts % (Manual) Lymphocytes % (Manual) Monocytes % (Manual) Eosinophils % (Manual) Basophils % (Manual) Nucleated RBC % Seg Neutrophils # Seg Neutrophils # Man Lymphocytes # (Manual) Monocytes # (Manual) Eosinophils # (Manual) Basophils # (Manual) PT INR Fibrinogen dRVVT Confirm Interp Factor V Activity POC ABG pH POC ABG pCO2 POC ABG pO2 ABG pO2 ABG HCO3 ABG Base Excess ABG Hemoglobin Oxyhemoglobin Sodium Potassium Chloride Carbon Dioxide BUN Creatinine Glucose POC Glucose 164 H 149 H 135 H Lactic Acid Calcium Ionized Calcium Phosphorus Magnesium Direct Bilirubin AST ALT Alkaline Phosphatase Lactate Dehydrogenase Troponin T C-Reactive Protein Total Protein Albumin Prealbumin Triglycerides Cholesterol LDL Cholesterol Direct HDL Cholesterol 25-OH Vitamin D Total PTH Intact Urine pH Urine WBC (Auto) Urine Creatinine Urine Total Protein Fluid Total Protein Vancomycin Trough Rheumatoid Factor Complement C4 Miscellaneous Test Crossmatch 12/24/16 12/24/16 12/24/16 05:41 07:01 11:38 WBC RBC Hgb Hct MCV MCH MCHC RDW Plt Count Lymph % (Auto) [place] % (Auto) Lymph # [place] # Baso # Seg Neutrophils % Seg Neuts % (Manual) Lymphocytes % (Manual) Monocytes % (Manual) Eosinophils % (Manual) Basophils % (Manual) Nucleated RBC % Seg Neutrophils # Seg Neutrophils # Man Lymphocytes # (Manual) Monocytes # (Manual) Eosinophils # (Manual) Basophils # (Manual) PT INR Fibrinogen dRVVT Confirm Interp Factor V Activity POC ABG pH POC ABG pCO2 POC ABG pO2 ABG pO2 ABG HCO3 ABG Base Excess ABG Hemoglobin Oxyhemoglobin Sodium Potassium Chloride Carbon Dioxide BUN 72 H Creatinine 1.3 H Glucose 130 H POC Glucose 132 H 156 H Lactic Acid Calcium 8.2 L Ionized Calcium Phosphorus Magnesium Direct Bilirubin AST ALT Alkaline Phosphatase Lactate Dehydrogenase Troponin T C-Reactive Protein Total Protein Albumin Prealbumin Triglycerides Cholesterol LDL Cholesterol Direct HDL Cholesterol 25-OH Vitamin D Total PTH Intact Urine pH Urine WBC (Auto) Urine Creatinine Urine Total Protein Fluid Total Protein Vancomycin Trough Rheumatoid Factor Complement C4 Miscellaneous Test Crossmatch 12/24/16 12/25/16 12/25/16 17:53 00:23 05:45 WBC RBC Hgb Hct MCV MCH MCHC RDW Plt Count Lymph % (Auto) [place] % (Auto) Lymph # [place] # Baso # Seg Neutrophils % Seg Neuts % (Manual) Lymphocytes % (Manual) Monocytes % (Manual) Eosinophils % (Manual) Basophils % (Manual) Nucleated RBC % Seg Neutrophils # Seg Neutrophils # Man Lymphocytes # (Manual) Monocytes # (Manual) Eosinophils # (Manual) Basophils # (Manual) PT INR Fibrinogen dRVVT Confirm Interp Factor V Activity POC ABG pH POC ABG pCO2 POC ABG pO2 ABG pO2 ABG HCO3 ABG Base Excess ABG Hemoglobin Oxyhemoglobin Sodium 146 H Potassium Chloride Carbon Dioxide BUN 51 H Creatinine Glucose 109 H POC Glucose 169 H 117 H Lactic Acid Calcium Ionized Calcium Phosphorus Magnesium Direct Bilirubin AST ALT Alkaline Phosphatase Lactate Dehydrogenase Troponin T C-Reactive Protein Total Protein Albumin Prealbumin Triglycerides Cholesterol LDL Cholesterol Direct HDL Cholesterol 25-OH Vitamin D Total PTH Intact Urine pH Urine WBC (Auto) Urine Creatinine Urine Total Protein Fluid Total Protein Vancomycin Trough Rheumatoid Factor Complement C4 Miscellaneous Test Crossmatch 12/25/16 12/25/16 12/25/16 06:43 11:29 17:14 WBC RBC Hgb Hct MCV MCH MCHC RDW Plt Count Lymph % (Auto) [place] % (Auto) Lymph # [place] # Baso # Seg Neutrophils % Seg Neuts % (Manual) Lymphocytes % (Manual) Monocytes % (Manual) Eosinophils % (Manual) Basophils % (Manual) Nucleated RBC % Seg Neutrophils # Seg Neutrophils # Man Lymphocytes # (Manual) Monocytes # (Manual) Eosinophils # (Manual) Basophils # (Manual) PT INR Fibrinogen dRVVT Confirm Interp Factor V Activity POC ABG pH POC ABG pCO2 POC ABG pO2 ABG pO2 ABG HCO3 ABG Base Excess ABG Hemoglobin Oxyhemoglobin Sodium Potassium Chloride Carbon Dioxide BUN Creatinine Glucose POC Glucose 117 H 128 H 120 H Lactic Acid Calcium Ionized Calcium Phosphorus Magnesium Direct Bilirubin AST ALT Alkaline Phosphatase Lactate Dehydrogenase Troponin T C-Reactive Protein Total Protein Albumin Prealbumin Triglycerides Cholesterol LDL Cholesterol Direct HDL Cholesterol 25-OH Vitamin D Total PTH Intact Urine pH Urine WBC (Auto) Urine Creatinine Urine Total Protein Fluid Total Protein Vancomycin Trough Rheumatoid Factor Complement C4 Miscellaneous Test Crossmatch 12/25/16 12/26/16 12/26/16 23:54 05:40 05:50 WBC 16.2 H RBC 2.32 L Hgb 6.2 L Hct 20.1 L MCV MCH 27 L MCHC RDW 18.6 H Plt Count Lymph % (Auto) [place] % (Auto) Lymph # [place] # Baso # Seg Neutrophils % Seg Neuts % (Manual) Lymphocytes % (Manual) Monocytes % (Manual) Eosinophils % (Manual) Basophils % (Manual) Nucleated RBC % Seg Neutrophils # Seg Neutrophils # Man Lymphocytes # (Manual) Monocytes # (Manual) Eosinophils # (Manual) Basophils # (Manual) PT INR Fibrinogen dRVVT Confirm Interp Factor V Activity POC ABG pH POC ABG pCO2 POC ABG pO2 ABG pO2 ABG HCO3 ABG Base Excess ABG Hemoglobin Oxyhemoglobin Sodium Potassium Chloride Carbon Dioxide BUN Creatinine Glucose POC Glucose 126 H 132 H Lactic Acid Calcium Ionized Calcium Phosphorus Magnesium Direct Bilirubin AST ALT Alkaline Phosphatase Lactate Dehydrogenase Troponin T C-Reactive Protein Total Protein Albumin Prealbumin Triglycerides Cholesterol LDL Cholesterol Direct HDL Cholesterol 25-OH Vitamin D Total PTH Intact Urine pH Urine WBC (Auto) Urine Creatinine Urine Total Protein Fluid Total Protein Vancomycin Trough Rheumatoid Factor Complement C4 Miscellaneous Test Crossmatch 12/26/16 12/26/16 12/26/16 05:50 12:17 12:33 WBC RBC Hgb Hct MCV MCH MCHC RDW Plt Count Lymph % (Auto) [place] % (Auto) Lymph # [place] # Baso # Seg Neutrophils % Seg Neuts % (Manual) Lymphocytes % (Manual) Monocytes % (Manual) Eosinophils % (Manual) Basophils % (Manual) Nucleated RBC % Seg Neutrophils # Seg Neutrophils # Man Lymphocytes # (Manual) Monocytes # (Manual) Eosinophils # (Manual) Basophils # (Manual) PT INR Fibrinogen dRVVT Confirm Interp Factor V Activity POC ABG pH POC ABG pCO2 POC ABG pO2 ABG pO2 ABG HCO3 ABG Base Excess ABG Hemoglobin Oxyhemoglobin Sodium Potassium Chloride Carbon Dioxide BUN 73 H Creatinine 1.3 H Glucose 113 H POC Glucose 117 H Lactic Acid Calcium Ionized Calcium Phosphorus Magnesium Direct Bilirubin AST ALT Alkaline Phosphatase Lactate Dehydrogenase Troponin T C-Reactive Protein Total Protein Albumin Prealbumin Triglycerides Cholesterol LDL Cholesterol Direct HDL Cholesterol 25-OH Vitamin D Total PTH Intact Urine pH Urine WBC (Auto) Urine Creatinine Urine Total Protein Fluid Total Protein Vancomycin Trough Rheumatoid Factor Complement C4 Miscellaneous Test Crossmatch See Detail 12/26/16 12/26/16 12/27/16 20:00 23:21 05:00 WBC RBC Hgb 8.4 L Hct 26.3 L D MCV MCH MCHC RDW Plt Count Lymph % (Auto) [place] % (Auto) Lymph # [place] # Baso # Seg Neutrophils % Seg Neuts % (Manual) Lymphocytes % (Manual) Monocytes % (Manual) Eosinophils % (Manual) Basophils % (Manual) Nucleated RBC % Seg Neutrophils # Seg Neutrophils # Man Lymphocytes # (Manual) Monocytes # (Manual) Eosinophils # (Manual) Basophils # (Manual) PT INR Fibrinogen dRVVT Confirm Interp Factor V Activity POC ABG pH POC ABG pCO2 POC ABG pO2 ABG pO2 ABG HCO3 ABG Base Excess ABG Hemoglobin Oxyhemoglobin Sodium Potassium Chloride Carbon Dioxide BUN 85 H Creatinine 1.6 H Glucose 118 H POC Glucose 124 H Lactic Acid Calcium Ionized Calcium Phosphorus 4.80 H Magnesium Direct Bilirubin AST ALT Alkaline Phosphatase Lactate Dehydrogenase Troponin T C-Reactive Protein Total Protein Albumin Prealbumin Triglycerides Cholesterol LDL Cholesterol Direct HDL Cholesterol 25-OH Vitamin D Total PTH Intact Urine pH Urine WBC (Auto) Urine Creatinine Urine Total Protein Fluid Total Protein Vancomycin Trough Rheumatoid Factor Complement C4 Miscellaneous Test Crossmatch 12/27/16 12/27/16 12/27/16 05:00 05:35 12:24 WBC RBC Hgb 7.6 L Hct 22.8 L MCV MCH MCHC RDW Plt Count Lymph % (Auto) [place] % (Auto) Lymph # [place] # Baso # Seg Neutrophils % Seg Neuts % (Manual) Lymphocytes % (Manual) Monocytes % (Manual) Eosinophils % (Manual) Basophils % (Manual) Nucleated RBC % Seg Neutrophils # Seg Neutrophils # Man Lymphocytes # (Manual) Monocytes # (Manual) Eosinophils # (Manual) Basophils # (Manual) PT INR Fibrinogen dRVVT Confirm Interp Factor V Activity POC ABG pH POC ABG pCO2 POC ABG pO2 ABG pO2 ABG HCO3 ABG Base Excess ABG Hemoglobin Oxyhemoglobin Sodium Potassium Chloride Carbon Dioxide BUN Creatinine Glucose POC Glucose 115 H 131 H Lactic Acid Calcium Ionized Calcium Phosphorus Magnesium Direct Bilirubin AST ALT Alkaline Phosphatase Lactate Dehydrogenase Troponin T C-Reactive Protein Total Protein Albumin Prealbumin Triglycerides Cholesterol LDL Cholesterol Direct HDL Cholesterol 25-OH Vitamin D Total PTH Intact Urine pH Urine WBC (Auto) Urine Creatinine Urine Total Protein Fluid Total Protein Vancomycin Trough Rheumatoid Factor Complement C4 Miscellaneous Test Crossmatch 12/27/16 12/28/16 12/28/16 17:16 00:18 04:00 WBC RBC Hgb Hct MCV MCH MCHC RDW Plt Count Lymph % (Auto) [place] % (Auto) Lymph # [place] # Baso # Seg Neutrophils % Seg Neuts % (Manual) Lymphocytes % (Manual) Monocytes % (Manual) Eosinophils % (Manual) Basophils % (Manual) Nucleated RBC % Seg Neutrophils # Seg Neutrophils # Man Lymphocytes # (Manual) Monocytes # (Manual) Eosinophils # (Manual) Basophils # (Manual) PT INR Fibrinogen dRVVT Confirm Interp Factor V Activity POC ABG pH POC ABG pCO2 POC ABG pO2 ABG pO2 ABG HCO3 ABG Base Excess ABG Hemoglobin Oxyhemoglobin Sodium Potassium 3.5 L Chloride Carbon Dioxide BUN 57 H Creatinine Glucose 118 H POC Glucose 136 H 120 H Lactic Acid Calcium 8.3 L Ionized Calcium Phosphorus Magnesium Direct Bilirubin AST ALT Alkaline Phosphatase Lactate Dehydrogenase Troponin T C-Reactive Protein Total Protein Albumin Prealbumin Triglycerides Cholesterol LDL Cholesterol Direct HDL Cholesterol 25-OH Vitamin D Total PTH Intact Urine pH Urine WBC (Auto) Urine Creatinine Urine Total Protein Fluid Total Protein Vancomycin Trough Rheumatoid Factor Complement C4 Miscellaneous Test Crossmatch 12/28/16 12/28/16 12/28/16 04:00 05:11 08:30 WBC 17.0 H RBC 2.58 L Hgb 7.1 L Hct 22.0 L MCV MCH MCHC RDW 17.6 H Plt Count Lymph % (Auto) 12.2 L [place] % (Auto) Lymph # [place] # 1.1 H Baso # Seg Neutrophils % 80.5 H Seg Neuts % (Manual) Lymphocytes % (Manual) Monocytes % (Manual) Eosinophils % (Manual) Basophils % (Manual) Nucleated RBC % Seg Neutrophils # 13.7 H Seg Neutrophils # Man Lymphocytes # (Manual) Monocytes # (Manual) Eosinophils # (Manual) Basophils # (Manual) PT 16.1 H INR 1.23 H Fibrinogen dRVVT Confirm Interp Factor V Activity POC ABG pH POC ABG pCO2 POC ABG pO2 ABG pO2 ABG HCO3 ABG Base Excess ABG Hemoglobin Oxyhemoglobin Sodium Potassium Chloride Carbon Dioxide BUN Creatinine Glucose POC Glucose 122 H Lactic Acid Calcium Ionized Calcium Phosphorus Magnesium Direct Bilirubin AST ALT Alkaline Phosphatase Lactate Dehydrogenase Troponin T C-Reactive Protein Total Protein Albumin Prealbumin Triglycerides Cholesterol LDL Cholesterol Direct HDL Cholesterol 25-OH Vitamin D Total PTH Intact Urine pH Urine WBC (Auto) Urine Creatinine Urine Total Protein Fluid Total Protein Vancomycin Trough Rheumatoid Factor Complement C4 Miscellaneous Test Crossmatch 12/28/16 12/28/16 12/28/16 12:27 16:32 23:46 WBC RBC Hgb Hct MCV MCH MCHC RDW Plt Count Lymph % (Auto) [place] % (Auto) Lymph # [place] # Baso # Seg Neutrophils % Seg Neuts % (Manual) Lymphocytes % (Manual) Monocytes % (Manual) Eosinophils % (Manual) Basophils % (Manual) Nucleated RBC % Seg Neutrophils # Seg Neutrophils # Man Lymphocytes # (Manual) Monocytes # (Manual) Eosinophils # (Manual) Basophils # (Manual) PT INR Fibrinogen dRVVT Confirm Interp Factor V Activity POC ABG pH POC ABG pCO2 POC ABG pO2 ABG pO2 ABG HCO3 ABG Base Excess ABG Hemoglobin Oxyhemoglobin Sodium Potassium Chloride Carbon Dioxide BUN Creatinine Glucose POC Glucose 127 H 117 H 108 H Lactic Acid Calcium Ionized Calcium Phosphorus Magnesium Direct Bilirubin AST ALT Alkaline Phosphatase Lactate Dehydrogenase Troponin T C-Reactive Protein Total Protein Albumin Prealbumin Triglycerides Cholesterol LDL Cholesterol Direct HDL Cholesterol 25-OH Vitamin D Total PTH Intact Urine pH Urine WBC (Auto) Urine Creatinine Urine Total Protein Fluid Total Protein Vancomycin Trough Rheumatoid Factor Complement C4 Miscellaneous Test Crossmatch 12/29/16 12/29/16 12/29/16 05:15 05:15 05:32 WBC RBC Hgb Hct MCV MCH MCHC RDW Plt Count Lymph % (Auto) [place] % (Auto) Lymph # [place] # Baso # Seg Neutrophils % Seg Neuts % (Manual) Lymphocytes % (Manual) Monocytes % (Manual) Eosinophils % (Manual) Basophils % (Manual) Nucleated RBC % Seg Neutrophils # Seg Neutrophils # Man Lymphocytes # (Manual) Monocytes # (Manual) Eosinophils # (Manual) Basophils # (Manual) PT INR Fibrinogen dRVVT Confirm Interp Factor V Activity POC ABG pH POC ABG pCO2 POC ABG pO2 ABG pO2 ABG HCO3 ABG Base Excess ABG Hemoglobin Oxyhemoglobin Sodium Potassium Chloride Carbon Dioxide BUN 74 H Creatinine 1.6 H Glucose 111 H POC Glucose 123 H Lactic Acid Calcium Ionized Calcium Phosphorus Magnesium Direct Bilirubin AST ALT Alkaline Phosphatase Lactate Dehydrogenase Troponin T C-Reactive Protein Total Protein Albumin Prealbumin 0.110 L Triglycerides Cholesterol LDL Cholesterol Direct HDL Cholesterol 25-OH Vitamin D Total PTH Intact Urine pH Urine WBC (Auto) Urine Creatinine Urine Total Protein Fluid Total Protein Vancomycin Trough Rheumatoid Factor Complement C4 Miscellaneous Test Crossmatch 12/29/16 12/29/16 12/29/16 11:43 13:45 14:00 WBC 13.8 H RBC 2.26 L Hgb 6.3 L Hct 20.4 L MCV MCH MCHC RDW 18.3 H Plt Count Lymph % (Auto) [place] % (Auto) Lymph # [place] # 0.9 H Baso # Seg Neutrophils % 78.6 H Seg Neuts % (Manual) Lymphocytes % (Manual) Monocytes % (Manual) Eosinophils % (Manual) Basophils % (Manual) Nucleated RBC % Seg Neutrophils # 10.8 H Seg Neutrophils # Man Lymphocytes # (Manual) Monocytes # (Manual) Eosinophils # (Manual) Basophils # (Manual) PT INR Fibrinogen dRVVT Confirm Interp Factor V Activity POC ABG pH POC ABG pCO2 POC ABG pO2 ABG pO2 ABG HCO3 ABG Base Excess ABG Hemoglobin Oxyhemoglobin Sodium Potassium Chloride Carbon Dioxide BUN Creatinine Glucose POC Glucose 133 H Lactic Acid Calcium Ionized Calcium Phosphorus Magnesium Direct Bilirubin AST ALT Alkaline Phosphatase Lactate Dehydrogenase Troponin T C-Reactive Protein Total Protein Albumin Prealbumin Triglycerides Cholesterol LDL Cholesterol Direct HDL Cholesterol 25-OH Vitamin D Total PTH Intact Urine pH Urine WBC (Auto) Urine Creatinine Urine Total Protein Fluid Total Protein Vancomycin Trough Rheumatoid Factor Complement C4 Miscellaneous Test Crossmatch See Detail 12/29/16 12/29/16 12/29/16 17:03 23:15 23:22 WBC RBC Hgb 7.3 L Hct 22.3 L MCV MCH MCHC RDW Plt Count Lymph % (Auto) [place] % (Auto) Lymph # [place] # Baso # Seg Neutrophils % Seg Neuts % (Manual) Lymphocytes % (Manual) Monocytes % (Manual) Eosinophils % (Manual) Basophils % (Manual) Nucleated RBC % Seg Neutrophils # Seg Neutrophils # Man Lymphocytes # (Manual) Monocytes # (Manual) Eosinophils # (Manual) Basophils # (Manual) PT INR Fibrinogen dRVVT Confirm Interp Factor V Activity POC ABG pH POC ABG pCO2 POC ABG pO2 ABG pO2 ABG HCO3 ABG Base Excess ABG Hemoglobin Oxyhemoglobin Sodium Potassium Chloride Carbon Dioxide BUN Creatinine Glucose POC Glucose 139 H 120 H Lactic Acid Calcium Ionized Calcium Phosphorus Magnesium Direct Bilirubin AST ALT Alkaline Phosphatase Lactate Dehydrogenase Troponin T C-Reactive Protein Total Protein Albumin Prealbumin Triglycerides Cholesterol LDL Cholesterol Direct HDL Cholesterol 25-OH Vitamin D Total PTH Intact Urine pH Urine WBC (Auto) Urine Creatinine Urine Total Protein Fluid Total Protein Vancomycin Trough Rheumatoid Factor Complement C4 Miscellaneous Test Crossmatch 12/30/16 12/30/16 12/30/16 04:20 04:20 05:43 WBC 15.6 H RBC 2.81 L Hgb 8.0 L Hct 24.0 L MCV MCH MCHC RDW 16.9 H Plt Count Lymph % (Auto) [place] % (Auto) Lymph # [place] # 1.0 H Baso # Seg Neutrophils % 76.2 H Seg Neuts % (Manual) Lymphocytes % (Manual) Monocytes % (Manual) Eosinophils % (Manual) Basophils % (Manual) Nucleated RBC % Seg Neutrophils # 11.9 H Seg Neutrophils # Man Lymphocytes # (Manual) Monocytes # (Manual) Eosinophils # (Manual) Basophils # (Manual) PT INR Fibrinogen dRVVT Confirm Interp Factor V Activity POC ABG pH POC ABG pCO2 POC ABG pO2 ABG pO2 ABG HCO3 ABG Base Excess ABG Hemoglobin Oxyhemoglobin Sodium Potassium Chloride Carbon Dioxide BUN 87 H Creatinine 1.8 H Glucose 119 H POC Glucose 115 H Lactic Acid Calcium Ionized Calcium Phosphorus Magnesium Direct Bilirubin AST ALT Alkaline Phosphatase Lactate Dehydrogenase Troponin T C-Reactive Protein Total Protein Albumin Prealbumin Triglycerides Cholesterol LDL Cholesterol Direct HDL Cholesterol 25-OH Vitamin D Total PTH Intact Urine pH Urine WBC (Auto) Urine Creatinine Urine Total Protein Fluid Total Protein Vancomycin Trough Rheumatoid Factor Complement C4 Miscellaneous Test Crossmatch 12/30/16 12/30/16 12/31/16 17:27 23:21 04:00 WBC RBC Hgb Hct MCV MCH MCHC RDW Plt Count Lymph % (Auto) [place] % (Auto) Lymph # [place] # Baso # Seg Neutrophils % Seg Neuts % (Manual) Lymphocytes % (Manual) Monocytes % (Manual) Eosinophils % (Manual) Basophils % (Manual) Nucleated RBC % Seg Neutrophils # Seg Neutrophils # Man Lymphocytes # (Manual) Monocytes # (Manual) Eosinophils # (Manual) Basophils # (Manual) PT INR Fibrinogen dRVVT Confirm Interp Factor V Activity POC ABG pH POC ABG pCO2 POC ABG pO2 ABG pO2 ABG HCO3 ABG Base Excess ABG Hemoglobin Oxyhemoglobin Sodium Potassium Chloride Carbon Dioxide BUN 59 H Creatinine Glucose 298 H POC Glucose 144 H 125 H Lactic Acid Calcium Ionized Calcium Phosphorus Magnesium Direct Bilirubin AST ALT Alkaline Phosphatase Lactate Dehydrogenase Troponin T C-Reactive Protein Total Protein Albumin Prealbumin Triglycerides Cholesterol LDL Cholesterol Direct HDL Cholesterol 25-OH Vitamin D Total PTH Intact Urine pH Urine WBC (Auto) Urine Creatinine Urine Total Protein Fluid Total Protein Vancomycin Trough Rheumatoid Factor Complement C4 Miscellaneous Test Crossmatch 12/31/16 12/31/16 12/31/16 05:11 12:18 18:17 WBC RBC Hgb Hct MCV MCH MCHC RDW Plt Count Lymph % (Auto) [place] % (Auto) Lymph # [place] # Baso # Seg Neutrophils % Seg Neuts % (Manual) Lymphocytes % (Manual) Monocytes % (Manual) Eosinophils % (Manual) Basophils % (Manual) Nucleated RBC % Seg Neutrophils # Seg Neutrophils # Man Lymphocytes # (Manual) Monocytes # (Manual) Eosinophils # (Manual) Basophils # (Manual) PT INR Fibrinogen dRVVT Confirm Interp Factor V Activity POC ABG pH POC ABG pCO2 POC ABG pO2 ABG pO2 ABG HCO3 ABG Base Excess ABG Hemoglobin Oxyhemoglobin Sodium Potassium Chloride Carbon Dioxide BUN Creatinine Glucose POC Glucose 167 H 125 H 133 H Lactic Acid Calcium Ionized Calcium Phosphorus Magnesium Direct Bilirubin AST ALT Alkaline Phosphatase Lactate Dehydrogenase Troponin T C-Reactive Protein Total Protein Albumin Prealbumin Triglycerides Cholesterol LDL Cholesterol Direct HDL Cholesterol 25-OH Vitamin D Total PTH Intact Urine pH Urine WBC (Auto) Urine Creatinine Urine Total Protein Fluid Total Protein Vancomycin Trough Rheumatoid Factor Complement C4 Miscellaneous Test Crossmatch 12/31/16 01/01/17 01/01/17 23:55 05:00 05:12 WBC RBC Hgb Hct MCV MCH MCHC RDW Plt Count Lymph % (Auto) [place] % (Auto) Lymph # [place] # Baso # Seg Neutrophils % Seg Neuts % (Manual) Lymphocytes % (Manual) Monocytes % (Manual) Eosinophils % (Manual) Basophils % (Manual) Nucleated RBC % Seg Neutrophils # Seg Neutrophils # Man Lymphocytes # (Manual) Monocytes # (Manual) Eosinophils # (Manual) Basophils # (Manual) PT INR Fibrinogen dRVVT Confirm Interp Factor V Activity POC ABG pH POC ABG pCO2 POC ABG pO2 ABG pO2 ABG HCO3 ABG Base Excess ABG Hemoglobin Oxyhemoglobin Sodium Potassium Chloride Carbon Dioxide BUN 76 H Creatinine 1.5 H Glucose 109 H POC Glucose 129 H 129 H Lactic Acid Calcium Ionized Calcium Phosphorus Magnesium Direct Bilirubin AST ALT Alkaline Phosphatase 536 H Lactate Dehydrogenase Troponin T C-Reactive Protein Total Protein Albumin 1.5 L Prealbumin Triglycerides Cholesterol LDL Cholesterol Direct HDL Cholesterol 25-OH Vitamin D Total PTH Intact Urine pH Urine WBC (Auto) Urine Creatinine Urine Total Protein Fluid Total Protein Vancomycin Trough Rheumatoid Factor Complement C4 Miscellaneous Test Crossmatch 01/01/17 01/01/17 01/01/17 12:25 17:01 23:32 WBC RBC Hgb Hct MCV MCH MCHC RDW Plt Count Lymph % (Auto) [place] % (Auto) Lymph # [place] # Baso # Seg Neutrophils % Seg Neuts % (Manual) Lymphocytes % (Manual) Monocytes % (Manual) Eosinophils % (Manual) Basophils % (Manual) Nucleated RBC % Seg Neutrophils # Seg Neutrophils # Man Lymphocytes # (Manual) Monocytes # (Manual) Eosinophils # (Manual) Basophils # (Manual) PT INR Fibrinogen dRVVT Confirm Interp Factor V Activity POC ABG pH POC ABG pCO2 POC ABG pO2 ABG pO2 ABG HCO3 ABG Base Excess ABG Hemoglobin Oxyhemoglobin Sodium Potassium Chloride Carbon Dioxide BUN Creatinine Glucose POC Glucose 140 H 142 H 112 H Lactic Acid Calcium Ionized Calcium Phosphorus Magnesium Direct Bilirubin AST ALT Alkaline Phosphatase Lactate Dehydrogenase Troponin T C-Reactive Protein Total Protein Albumin Prealbumin Triglycerides Cholesterol LDL Cholesterol Direct HDL Cholesterol 25-OH Vitamin D Total PTH Intact Urine pH Urine WBC (Auto) Urine Creatinine Urine Total Protein Fluid Total Protein Vancomycin Trough Rheumatoid Factor Complement C4 Miscellaneous Test Crossmatch 01/02/17 01/02/17 01/02/17 04:56 06:00 11:37 WBC RBC Hgb Hct MCV MCH MCHC RDW Plt Count Lymph % (Auto) [place] % (Auto) Lymph # [place] # Baso # Seg Neutrophils % Seg Neuts % (Manual) Lymphocytes % (Manual) Monocytes % (Manual) Eosinophils % (Manual) Basophils % (Manual) Nucleated RBC % Seg Neutrophils # Seg Neutrophils # Man Lymphocytes # (Manual) Monocytes # (Manual) Eosinophils # (Manual) Basophils # (Manual) PT INR Fibrinogen dRVVT Confirm Interp Factor V Activity POC ABG pH POC ABG pCO2 POC ABG pO2 ABG pO2 ABG HCO3 ABG Base Excess ABG Hemoglobin Oxyhemoglobin Sodium Potassium Chloride Carbon Dioxide BUN 88 H Creatinine 1.7 H Glucose 113 H POC Glucose 136 H 200 H Lactic Acid Calcium Ionized Calcium Phosphorus Magnesium Direct Bilirubin AST ALT Alkaline Phosphatase Lactate Dehydrogenase Troponin T C-Reactive Protein Total Protein Albumin Prealbumin Triglycerides Cholesterol LDL Cholesterol Direct HDL Cholesterol 25-OH Vitamin D Total PTH Intact Urine pH Urine WBC (Auto) Urine Creatinine Urine Total Protein Fluid Total Protein Vancomycin Trough Rheumatoid Factor Complement C4 Miscellaneous Test Crossmatch 01/02/17 01/02/17 01/03/17 17:42 22:52 04:54 WBC RBC Hgb Hct MCV MCH MCHC RDW Plt Count Lymph % (Auto) [place] % (Auto) Lymph # [place] # Baso # Seg Neutrophils % Seg Neuts % (Manual) Lymphocytes % (Manual) Monocytes % (Manual) Eosinophils % (Manual) Basophils % (Manual) Nucleated RBC % Seg Neutrophils # Seg Neutrophils # Man Lymphocytes # (Manual) Monocytes # (Manual) Eosinophils # (Manual) Basophils # (Manual) PT INR Fibrinogen dRVVT Confirm Interp Factor V Activity POC ABG pH POC ABG pCO2 POC ABG pO2 ABG pO2 ABG HCO3 ABG Base Excess ABG Hemoglobin Oxyhemoglobin Sodium Potassium Chloride Carbon Dioxide BUN Creatinine Glucose POC Glucose 112 H 133 H 111 H Lactic Acid Calcium Ionized Calcium Phosphorus Magnesium Direct Bilirubin AST ALT Alkaline Phosphatase Lactate Dehydrogenase Troponin T C-Reactive Protein Total Protein Albumin Prealbumin Triglycerides Cholesterol LDL Cholesterol Direct HDL Cholesterol 25-OH Vitamin D Total PTH Intact Urine pH Urine WBC (Auto) Urine Creatinine Urine Total Protein Fluid Total Protein Vancomycin Trough Rheumatoid Factor Complement C4 Miscellaneous Test Crossmatch 01/03/17 01/03/17 01/03/17 05:00 05:00 14:02 WBC 11.2 H RBC 2.56 L Hgb 7.2 L Hct 22.3 L MCV MCH MCHC RDW 17.3 H Plt Count Lymph % (Auto) [place] % (Auto) 10.0 H Lymph # [place] # 1.1 H Baso # Seg Neutrophils % 70.5 H Seg Neuts % (Manual) Lymphocytes % (Manual) Monocytes % (Manual) Eosinophils % (Manual) Basophils % (Manual) Nucleated RBC % Seg Neutrophils # 7.9 H Seg Neutrophils # Man Lymphocytes # (Manual) Monocytes # (Manual) Eosinophils # (Manual) Basophils # (Manual) PT INR Fibrinogen dRVVT Confirm Interp Factor V Activity POC ABG pH POC ABG pCO2 POC ABG pO2 ABG pO2 ABG HCO3 ABG Base Excess ABG Hemoglobin Oxyhemoglobin Sodium Potassium Chloride Carbon Dioxide BUN 60 H Creatinine 1.3 H Glucose 110 H POC Glucose 119 H Lactic Acid Calcium Ionized Calcium Phosphorus Magnesium Direct Bilirubin AST ALT Alkaline Phosphatase Lactate Dehydrogenase Troponin T C-Reactive Protein Total Protein Albumin Prealbumin Triglycerides Cholesterol LDL Cholesterol Direct HDL Cholesterol 25-OH Vitamin D Total PTH Intact Urine pH Urine WBC (Auto) Urine Creatinine Urine Total Protein Fluid Total Protein Vancomycin Trough Rheumatoid Factor Complement C4 Miscellaneous Test Crossmatch 01/03/17 01/03/17 01/04/17 18:13 23:40 05:57 WBC RBC Hgb Hct MCV MCH MCHC RDW Plt Count Lymph % (Auto) [place] % (Auto) Lymph # [place] # Baso # Seg Neutrophils % Seg Neuts % (Manual) Lymphocytes % (Manual) Monocytes % (Manual) Eosinophils % (Manual) Basophils % (Manual) Nucleated RBC % Seg Neutrophils # Seg Neutrophils # Man Lymphocytes # (Manual) Monocytes # (Manual) Eosinophils # (Manual) Basophils # (Manual) PT INR Fibrinogen dRVVT Confirm Interp Factor V Activity POC ABG pH POC ABG pCO2 POC ABG pO2 ABG pO2 ABG HCO3 ABG Base Excess ABG Hemoglobin Oxyhemoglobin Sodium Potassium Chloride Carbon Dioxide BUN Creatinine Glucose POC Glucose 107 H 129 H 111 H Lactic Acid Calcium Ionized Calcium Phosphorus Magnesium Direct Bilirubin AST ALT Alkaline Phosphatase Lactate Dehydrogenase Troponin T C-Reactive Protein Total Protein Albumin Prealbumin Triglycerides Cholesterol LDL Cholesterol Direct HDL Cholesterol 25-OH Vitamin D Total PTH Intact Urine pH Urine WBC (Auto) Urine Creatinine Urine Total Protein Fluid Total Protein Vancomycin Trough Rheumatoid Factor Complement C4 Miscellaneous Test Crossmatch 01/04/17 01/04/17 01/04/17 12:46 15:27 17:11 WBC RBC Hgb Hct MCV MCH MCHC RDW Plt Count Lymph % (Auto) [place] % (Auto) Lymph # [place] # Baso # Seg Neutrophils % Seg Neuts % (Manual) Lymphocytes % (Manual) Monocytes % (Manual) Eosinophils % (Manual) Basophils % (Manual) Nucleated RBC % Seg Neutrophils # Seg Neutrophils # Man Lymphocytes # (Manual) Monocytes # (Manual) Eosinophils # (Manual) Basophils # (Manual) PT INR Fibrinogen dRVVT Confirm Interp Factor V Activity POC ABG pH POC ABG pCO2 POC ABG pO2 ABG pO2 ABG HCO3 ABG Base Excess ABG Hemoglobin Oxyhemoglobin Sodium Potassium Chloride Carbon Dioxide BUN 43 H Creatinine Glucose 124 H POC Glucose 159 H 125 H Lactic Acid Calcium 8.0 L Ionized Calcium Phosphorus 2.10 L Magnesium Direct Bilirubin AST ALT Alkaline Phosphatase Lactate Dehydrogenase Troponin T C-Reactive Protein Total Protein Albumin Prealbumin Triglycerides Cholesterol LDL Cholesterol Direct HDL Cholesterol 25-OH Vitamin D Total PTH Intact Urine pH Urine WBC (Auto) Urine Creatinine Urine Total Protein Fluid Total Protein Vancomycin Trough Rheumatoid Factor Complement C4 Miscellaneous Test Crossmatch 01/04/17 01/05/17 01/05/17 23:31 04:00 05:46 WBC RBC Hgb Hct MCV MCH MCHC RDW Plt Count Lymph % (Auto) [place] % (Auto) Lymph # [place] # Baso # Seg Neutrophils % Seg Neuts % (Manual) Lymphocytes % (Manual) Monocytes % (Manual) Eosinophils % (Manual) Basophils % (Manual) Nucleated RBC % Seg Neutrophils # Seg Neutrophils # Man Lymphocytes # (Manual) Monocytes # (Manual) Eosinophils # (Manual) Basophils # (Manual) PT INR Fibrinogen dRVVT Confirm Interp Factor V Activity POC ABG pH POC ABG pCO2 POC ABG pO2 ABG pO2 ABG HCO3 ABG Base Excess ABG Hemoglobin Oxyhemoglobin Sodium Potassium Chloride Carbon Dioxide BUN 52 H Creatinine 1.3 H Glucose 113 H POC Glucose 123 H 118 H Lactic Acid Calcium Ionized Calcium Phosphorus 2.40 L Magnesium Direct Bilirubin AST ALT Alkaline Phosphatase Lactate Dehydrogenase Troponin T C-Reactive Protein Total Protein Albumin Prealbumin Triglycerides Cholesterol LDL Cholesterol Direct HDL Cholesterol 25-OH Vitamin D Total PTH Intact Urine pH Urine WBC (Auto) Urine Creatinine Urine Total Protein Fluid Total Protein Vancomycin Trough Rheumatoid Factor Complement C4 Miscellaneous Test Crossmatch 01/05/17 01/05/17 01/05/17 11:41 17:48 23:27 WBC RBC Hgb Hct MCV MCH MCHC RDW Plt Count Lymph % (Auto) [place] % (Auto) Lymph # [place] # Baso # Seg Neutrophils % Seg Neuts % (Manual) Lymphocytes % (Manual) Monocytes % (Manual) Eosinophils % (Manual) Basophils % (Manual) Nucleated RBC % Seg Neutrophils # Seg Neutrophils # Man Lymphocytes # (Manual) Monocytes # (Manual) Eosinophils # (Manual) Basophils # (Manual) PT INR Fibrinogen dRVVT Confirm Interp Factor V Activity POC ABG pH POC ABG pCO2 POC ABG pO2 ABG pO2 ABG HCO3 ABG Base Excess ABG Hemoglobin Oxyhemoglobin Sodium Potassium Chloride Carbon Dioxide BUN Creatinine Glucose POC Glucose 163 H 142 H 155 H Lactic Acid Calcium Ionized Calcium Phosphorus Magnesium Direct Bilirubin AST ALT Alkaline Phosphatase Lactate Dehydrogenase Troponin T C-Reactive Protein Total Protein Albumin Prealbumin Triglycerides Cholesterol LDL Cholesterol Direct HDL Cholesterol 25-OH Vitamin D Total PTH Intact Urine pH Urine WBC (Auto) Urine Creatinine Urine Total Protein Fluid Total Protein Vancomycin Trough Rheumatoid Factor Complement C4 Miscellaneous Test Crossmatch 01/06/17 01/06/17 01/06/17 05:20 07:35 11:18 WBC RBC Hgb Hct MCV MCH MCHC RDW Plt Count Lymph % (Auto) [place] % (Auto) Lymph # [place] # Baso # Seg Neutrophils % Seg Neuts % (Manual) Lymphocytes % (Manual) Monocytes % (Manual) Eosinophils % (Manual) Basophils % (Manual) Nucleated RBC % Seg Neutrophils # Seg Neutrophils # Man Lymphocytes # (Manual) Monocytes # (Manual) Eosinophils # (Manual) Basophils # (Manual) PT INR Fibrinogen dRVVT Confirm Interp Factor V Activity POC ABG pH POC ABG pCO2 POC ABG pO2 ABG pO2 ABG HCO3 ABG Base Excess ABG Hemoglobin Oxyhemoglobin Sodium Potassium Chloride Carbon Dioxide BUN 74 H Creatinine 1.6 H Glucose 135 H POC Glucose 108 H 149 H Lactic Acid Calcium Ionized Calcium Phosphorus Magnesium Direct Bilirubin AST ALT Alkaline Phosphatase Lactate Dehydrogenase Troponin T C-Reactive Protein Total Protein Albumin Prealbumin Triglycerides Cholesterol LDL Cholesterol Direct HDL Cholesterol 25-OH Vitamin D Total PTH Intact Urine pH Urine WBC (Auto) Urine Creatinine Urine Total Protein Fluid Total Protein Vancomycin Trough Rheumatoid Factor Complement C4 Miscellaneous Test Crossmatch 01/06/17 01/07/17 01/07/17 17:17 00:23 05:31 WBC RBC Hgb Hct MCV MCH MCHC RDW Plt Count Lymph % (Auto) [place] % (Auto) Lymph # [place] # Baso # Seg Neutrophils % Seg Neuts % (Manual) Lymphocytes % (Manual) Monocytes % (Manual) Eosinophils % (Manual) Basophils % (Manual) Nucleated RBC % Seg Neutrophils # Seg Neutrophils # Man Lymphocytes # (Manual) Monocytes # (Manual) Eosinophils # (Manual) Basophils # (Manual) PT INR Fibrinogen dRVVT Confirm Interp Factor V Activity POC ABG pH POC ABG pCO2 POC ABG pO2 ABG pO2 ABG HCO3 ABG Base Excess ABG Hemoglobin Oxyhemoglobin Sodium Potassium Chloride Carbon Dioxide BUN Creatinine Glucose POC Glucose 146 H 165 H 153 H Lactic Acid Calcium Ionized Calcium Phosphorus Magnesium Direct Bilirubin AST ALT Alkaline Phosphatase Lactate Dehydrogenase Troponin T C-Reactive Protein Total Protein Albumin Prealbumin Triglycerides Cholesterol LDL Cholesterol Direct HDL Cholesterol 25-OH Vitamin D Total PTH Intact Urine pH Urine WBC (Auto) Urine Creatinine Urine Total Protein Fluid Total Protein Vancomycin Trough Rheumatoid Factor Complement C4 Miscellaneous Test Crossmatch 01/07/17 01/07/17 01/07/17 06:00 11:39 17:11 WBC RBC Hgb Hct MCV MCH MCHC RDW Plt Count Lymph % (Auto) [place] % (Auto) Lymph # [place] # Baso # Seg Neutrophils % Seg Neuts % (Manual) Lymphocytes % (Manual) Monocytes % (Manual) Eosinophils % (Manual) Basophils % (Manual) Nucleated RBC % Seg Neutrophils # Seg Neutrophils # Man Lymphocytes # (Manual) Monocytes # (Manual) Eosinophils # (Manual) Basophils # (Manual) PT INR Fibrinogen dRVVT Confirm Interp Factor V Activity POC ABG pH POC ABG pCO2 POC ABG pO2 ABG pO2 ABG HCO3 ABG Base Excess ABG Hemoglobin Oxyhemoglobin Sodium Potassium Chloride Carbon Dioxide BUN 42 H Creatinine Glucose 175 H POC Glucose 163 H 163 H Lactic Acid Calcium Ionized Calcium Phosphorus 2.40 L D Magnesium Direct Bilirubin AST ALT Alkaline Phosphatase Lactate Dehydrogenase Troponin T C-Reactive Protein Total Protein Albumin Prealbumin Triglycerides Cholesterol LDL Cholesterol Direct HDL Cholesterol 25-OH Vitamin D Total PTH Intact Urine pH Urine WBC (Auto) Urine Creatinine Urine Total Protein Fluid Total Protein Vancomycin Trough Rheumatoid Factor Complement C4 Miscellaneous Test Crossmatch 01/07/17 01/08/17 01/08/17 23:40 05:00 05:00 WBC 27.4 H RBC 2.27 L Hgb 6.1 L Hct 20.4 L MCV MCH 27 L MCHC RDW 17.8 H Plt Count Lymph % (Auto) [place] % (Auto) Lymph # [place] # Baso # Seg Neutrophils % Seg Neuts % (Manual) Lymphocytes % (Manual) Monocytes % (Manual) Eosinophils % (Manual) Basophils % (Manual) Nucleated RBC % Seg Neutrophils # Seg Neutrophils # Man Lymphocytes # (Manual) Monocytes # (Manual) Eosinophils # (Manual) Basophils # (Manual) PT INR Fibrinogen dRVVT Confirm Interp Factor V Activity POC ABG pH POC ABG pCO2 POC ABG pO2 ABG pO2 ABG HCO3 ABG Base Excess ABG Hemoglobin Oxyhemoglobin Sodium Potassium Chloride Carbon Dioxide 16 L D BUN 62 H Creatinine 1.6 H D Glucose 103 H POC Glucose 135 H Lactic Acid Calcium Ionized Calcium Phosphorus Magnesium Direct Bilirubin AST ALT Alkaline Phosphatase Lactate Dehydrogenase Troponin T C-Reactive Protein Total Protein Albumin Prealbumin Triglycerides Cholesterol LDL Cholesterol Direct HDL Cholesterol 25-OH Vitamin D Total PTH Intact Urine pH Urine WBC (Auto) Urine Creatinine Urine Total Protein Fluid Total Protein Vancomycin Trough Rheumatoid Factor Complement C4 Miscellaneous Test Crossmatch 01/08/17 01/08/17 01/08/17 05:25 10:37 10:37 WBC RBC Hgb Hct MCV MCH MCHC RDW Plt Count Lymph % (Auto) [place] % (Auto) Lymph # [place] # Baso # Seg Neutrophils % Seg Neuts % (Manual) Lymphocytes % (Manual) Monocytes % (Manual) Eosinophils % (Manual) Basophils % (Manual) Nucleated RBC % Seg Neutrophils # Seg Neutrophils # Man Lymphocytes # (Manual) Monocytes # (Manual) Eosinophils # (Manual) Basophils # (Manual) PT INR Fibrinogen dRVVT Confirm Interp Factor V Activity POC ABG pH POC ABG pCO2 POC ABG pO2 ABG pO2 ABG HCO3 ABG Base Excess ABG Hemoglobin Oxyhemoglobin Sodium Potassium Chloride Carbon Dioxide BUN Creatinine Glucose POC Glucose 106 H Lactic Acid Calcium Ionized Calcium Phosphorus Magnesium Direct Bilirubin AST ALT Alkaline Phosphatase Lactate Dehydrogenase Troponin T C-Reactive Protein 24.40 H Total Protein Albumin Prealbumin Triglycerides Cholesterol LDL Cholesterol Direct HDL Cholesterol 25-OH Vitamin D Total PTH Intact Urine pH Urine WBC (Auto) Urine Creatinine Urine Total Protein Fluid Total Protein Vancomycin Trough Rheumatoid Factor Complement C4 Miscellaneous Test Crossmatch See Detail 01/08/17 01/08/17 01/08/17 10:37 11:33 15:15 WBC RBC Hgb Hct MCV MCH MCHC RDW Plt Count Lymph % (Auto) [place] % (Auto) Lymph # [place] # Baso # Seg Neutrophils % Seg Neuts % (Manual) Lymphocytes % (Manual) Monocytes % (Manual) Eosinophils % (Manual) Basophils % (Manual) Nucleated RBC % Seg Neutrophils # Seg Neutrophils # Man Lymphocytes # (Manual) Monocytes # (Manual) Eosinophils # (Manual) Basophils # (Manual) PT INR Fibrinogen dRVVT Confirm Interp Factor V Activity POC ABG pH POC ABG pCO2 POC ABG pO2 ABG pO2 ABG HCO3 ABG Base Excess ABG Hemoglobin Oxyhemoglobin Sodium Potassium Chloride Carbon Dioxide BUN Creatinine Glucose POC Glucose 157 H Lactic Acid 9.70 H* 9.10 H* Calcium Ionized Calcium Phosphorus Magnesium Direct Bilirubin AST ALT Alkaline Phosphatase Lactate Dehydrogenase Troponin T C-Reactive Protein Total Protein Albumin Prealbumin Triglycerides Cholesterol LDL Cholesterol Direct HDL Cholesterol 25-OH Vitamin D Total PTH Intact Urine pH Urine WBC (Auto) Urine Creatinine Urine Total Protein Fluid Total Protein Vancomycin Trough Rheumatoid Factor Complement C4 Miscellaneous Test Crossmatch 01/08/17 01/08/17 01/09/17 17:19 23:12 04:40 WBC RBC Hgb Hct MCV MCH MCHC RDW Plt Count Lymph % (Auto) [place] % (Auto) Lymph # [place] # Baso # Seg Neutrophils % Seg Neuts % (Manual) Lymphocytes % (Manual) Monocytes % (Manual) Eosinophils % (Manual) Basophils % (Manual) Nucleated RBC % Seg Neutrophils # Seg Neutrophils # Man Lymphocytes # (Manual) Monocytes # (Manual) Eosinophils # (Manual) Basophils # (Manual) PT INR Fibrinogen dRVVT Confirm Interp Factor V Activity POC ABG pH POC ABG pCO2 POC ABG pO2 ABG pO2 ABG HCO3 ABG Base Excess ABG Hemoglobin Oxyhemoglobin Sodium 147 H Potassium Chloride Carbon Dioxide BUN 82 H Creatinine 1.8 H Glucose 137 H POC Glucose 164 H 157 H Lactic Acid Calcium Ionized Calcium Phosphorus Magnesium Direct Bilirubin AST ALT Alkaline Phosphatase Lactate Dehydrogenase Troponin T C-Reactive Protein Total Protein Albumin Prealbumin Triglycerides Cholesterol LDL Cholesterol Direct HDL Cholesterol 25-OH Vitamin D Total PTH Intact Urine pH Urine WBC (Auto) Urine Creatinine Urine Total Protein Fluid Total Protein Vancomycin Trough Rheumatoid Factor Complement C4 Miscellaneous Test Crossmatch 01/09/17 01/09/17 01/09/17 05:42 08:22 10:57 WBC RBC Hgb Hct MCV MCH MCHC RDW Plt Count Lymph % (Auto) [place] % (Auto) Lymph # [place] # Baso # Seg Neutrophils % Seg Neuts % (Manual) Lymphocytes % (Manual) Monocytes % (Manual) Eosinophils % (Manual) Basophils % (Manual) Nucleated RBC % Seg Neutrophils # Seg Neutrophils # Man Lymphocytes # (Manual) Monocytes # (Manual) Eosinophils # (Manual) Basophils # (Manual) PT INR Fibrinogen dRVVT Confirm Interp Factor V Activity POC ABG pH POC ABG pCO2 POC ABG pO2 ABG pO2 ABG HCO3 ABG Base Excess ABG Hemoglobin Oxyhemoglobin Sodium Potassium Chloride Carbon Dioxide BUN Creatinine Glucose POC Glucose 156 H 122 H Lactic Acid 2.30 H* Calcium Ionized Calcium Phosphorus Magnesium Direct Bilirubin AST ALT Alkaline Phosphatase Lactate Dehydrogenase Troponin T C-Reactive Protein Total Protein Albumin Prealbumin Triglycerides Cholesterol LDL Cholesterol Direct HDL Cholesterol 25-OH Vitamin D Total PTH Intact Urine pH Urine WBC (Auto) Urine Creatinine Urine Total Protein Fluid Total Protein Vancomycin Trough Rheumatoid Factor Complement C4 Miscellaneous Test Crossmatch 01/09/17 01/09/17 01/09/17 13:30 17:14 18:45 WBC RBC Hgb Hct MCV MCH MCHC RDW Plt Count Lymph % (Auto) [place] % (Auto) Lymph # [place] # Baso # Seg Neutrophils % Seg Neuts % (Manual) Lymphocytes % (Manual) Monocytes % (Manual) Eosinophils % (Manual) Basophils % (Manual) Nucleated RBC % Seg Neutrophils # Seg Neutrophils # Man Lymphocytes # (Manual) Monocytes # (Manual) Eosinophils # (Manual) Basophils # (Manual) PT INR Fibrinogen dRVVT Confirm Interp Factor V Activity POC ABG pH POC ABG pCO2 POC ABG pO2 ABG pO2 ABG HCO3 ABG Base Excess ABG Hemoglobin Oxyhemoglobin Sodium Potassium Chloride Carbon Dioxide BUN Creatinine Glucose POC Glucose 127 H Lactic Acid Calcium Ionized Calcium Phosphorus Magnesium Direct Bilirubin AST ALT Alkaline Phosphatase Lactate Dehydrogenase Troponin T C-Reactive Protein 24.70 H Total Protein Albumin Prealbumin Triglycerides Cholesterol LDL Cholesterol Direct HDL Cholesterol 25-OH Vitamin D Total PTH Intact Urine pH Urine WBC (Auto) Urine Creatinine Urine Total Protein Fluid Total Protein Vancomycin Trough Rheumatoid Factor Complement C4 Miscellaneous Test Flexitest 1 H Crossmatch 01/10/17 01/10/17 01/10/17 01:21 04:00 04:00 WBC 18.1 H RBC 3.22 L Hgb 8.8 L Hct 27.0 L D MCV MCH 27 L MCHC RDW 17.0 H Plt Count Lymph % (Auto) [place] % (Auto) Lymph # [place] # Baso # Seg Neutrophils % Seg Neuts % (Manual) Lymphocytes % (Manual) Monocytes % (Manual) Eosinophils % (Manual) Basophils % (Manual) Nucleated RBC % Seg Neutrophils # Seg Neutrophils # Man Lymphocytes # (Manual) Monocytes # (Manual) Eosinophils # (Manual) Basophils # (Manual) PT INR Fibrinogen dRVVT Confirm Interp Factor V Activity POC ABG pH POC ABG pCO2 POC ABG pO2 ABG pO2 ABG HCO3 ABG Base Excess ABG Hemoglobin Oxyhemoglobin Sodium Potassium Chloride Carbon Dioxide BUN 59 H Creatinine 1.3 H Glucose 122 H POC Glucose 160 H Lactic Acid Calcium Ionized Calcium Phosphorus Magnesium Direct Bilirubin AST ALT Alkaline Phosphatase Lactate Dehydrogenase Troponin T C-Reactive Protein Total Protein Albumin Prealbumin Triglycerides Cholesterol LDL Cholesterol Direct HDL Cholesterol 25-OH Vitamin D Total PTH Intact Urine pH Urine WBC (Auto) Urine Creatinine Urine Total Protein Fluid Total Protein Vancomycin Trough Rheumatoid Factor Complement C4 Miscellaneous Test Crossmatch 01/10/17 01/10/17 01/10/17 05:36 12:14 17:55 WBC RBC Hgb Hct MCV MCH MCHC RDW Plt Count Lymph % (Auto) [place] % (Auto) Lymph # [place] # Baso # Seg Neutrophils % Seg Neuts % (Manual) Lymphocytes % (Manual) Monocytes % (Manual) Eosinophils % (Manual) Basophils % (Manual) Nucleated RBC % Seg Neutrophils # Seg Neutrophils # Man Lymphocytes # (Manual) Monocytes # (Manual) Eosinophils # (Manual) Basophils # (Manual) PT INR Fibrinogen dRVVT Confirm Interp Factor V Activity POC ABG pH POC ABG pCO2 POC ABG pO2 ABG pO2 ABG HCO3 ABG Base Excess ABG Hemoglobin Oxyhemoglobin Sodium Potassium Chloride Carbon Dioxide BUN Creatinine Glucose POC Glucose 163 H 120 H 144 H Lactic Acid Calcium Ionized Calcium Phosphorus Magnesium Direct Bilirubin AST ALT Alkaline Phosphatase Lactate Dehydrogenase Troponin T C-Reactive Protein Total Protein Albumin Prealbumin Triglycerides Cholesterol LDL Cholesterol Direct HDL Cholesterol 25-OH Vitamin D Total PTH Intact Urine pH Urine WBC (Auto) Urine Creatinine Urine Total Protein Fluid Total Protein Vancomycin Trough Rheumatoid Factor Complement C4 Miscellaneous Test Crossmatch 01/11/17 01/11/17 01/11/17 00:09 04:00 04:00 WBC 15.8 H RBC 3.04 L Hgb 8.2 L Hct 25.5 L MCV MCH 27 L MCHC RDW 17.3 H Plt Count Lymph % (Auto) [place] % (Auto) Lymph # [place] # Baso # Seg Neutrophils % Seg Neuts % (Manual) Lymphocytes % (Manual) Monocytes % (Manual) Eosinophils % (Manual) Basophils % (Manual) Nucleated RBC % Seg Neutrophils # Seg Neutrophils # Man Lymphocytes # (Manual) Monocytes # (Manual) Eosinophils # (Manual) Basophils # (Manual) PT INR Fibrinogen dRVVT Confirm Interp Factor V Activity POC ABG pH POC ABG pCO2 POC ABG pO2 ABG pO2 ABG HCO3 ABG Base Excess ABG Hemoglobin Oxyhemoglobin Sodium Potassium Chloride Carbon Dioxide BUN 78 H Creatinine 1.6 H Glucose 109 H POC Glucose 122 H Lactic Acid Calcium Ionized Calcium Phosphorus Magnesium Direct Bilirubin AST ALT Alkaline Phosphatase Lactate Dehydrogenase Troponin T C-Reactive Protein Total Protein Albumin Prealbumin Triglycerides Cholesterol LDL Cholesterol Direct HDL Cholesterol 25-OH Vitamin D Total PTH Intact Urine pH Urine WBC (Auto) Urine Creatinine Urine Total Protein Fluid Total Protein Vancomycin Trough Rheumatoid Factor Complement C4 Miscellaneous Test Crossmatch 01/11/17 01/11/17 01/11/17 12:46 18:23 23:42 WBC RBC Hgb Hct MCV MCH MCHC RDW Plt Count Lymph % (Auto) [place] % (Auto) Lymph # [place] # Baso # Seg Neutrophils % Seg Neuts % (Manual) Lymphocytes % (Manual) Monocytes % (Manual) Eosinophils % (Manual) Basophils % (Manual) Nucleated RBC % Seg Neutrophils # Seg Neutrophils # Man Lymphocytes # (Manual) Monocytes # (Manual) Eosinophils # (Manual) Basophils # (Manual) PT INR Fibrinogen dRVVT Confirm Interp Factor V Activity POC ABG pH POC ABG pCO2 POC ABG pO2 ABG pO2 ABG HCO3 ABG Base Excess ABG Hemoglobin Oxyhemoglobin Sodium Potassium Chloride Carbon Dioxide BUN Creatinine Glucose POC Glucose 148 H 125 H 124 H Lactic Acid Calcium Ionized Calcium Phosphorus Magnesium Direct Bilirubin AST ALT Alkaline Phosphatase Lactate Dehydrogenase Troponin T C-Reactive Protein Total Protein Albumin Prealbumin Triglycerides Cholesterol LDL Cholesterol Direct HDL Cholesterol 25-OH Vitamin D Total PTH Intact Urine pH Urine WBC (Auto) Urine Creatinine Urine Total Protein Fluid Total Protein Vancomycin Trough Rheumatoid Factor Complement C4 Miscellaneous Test Crossmatch 01/12/17 01/12/17 01/12/17 04:30 04:30 05:47 WBC 15.8 H RBC 3.31 L Hgb 8.9 L Hct 27.9 L MCV MCH 27 L MCHC RDW 17.4 H Plt Count Lymph % (Auto) [place] % (Auto) Lymph # [place] # Baso # Seg Neutrophils % Seg Neuts % (Manual) Lymphocytes % (Manual) Monocytes % (Manual) Eosinophils % (Manual) Basophils % (Manual) Nucleated RBC % Seg Neutrophils # Seg Neutrophils # Man Lymphocytes # (Manual) Monocytes # (Manual) Eosinophils # (Manual) Basophils # (Manual) PT INR Fibrinogen dRVVT Confirm Interp Factor V Activity POC ABG pH POC ABG pCO2 POC ABG pO2 ABG pO2 ABG HCO3 ABG Base Excess ABG Hemoglobin Oxyhemoglobin Sodium Potassium Chloride Carbon Dioxide BUN 57 H Creatinine Glucose 121 H POC Glucose 110 H Lactic Acid Calcium Ionized Calcium Phosphorus 2.10 L Magnesium Direct Bilirubin AST ALT Alkaline Phosphatase Lactate Dehydrogenase Troponin T C-Reactive Protein Total Protein Albumin Prealbumin Triglycerides Cholesterol LDL Cholesterol Direct HDL Cholesterol 25-OH Vitamin D Total PTH Intact Urine pH Urine WBC (Auto) Urine Creatinine Urine Total Protein Fluid Total Protein Vancomycin Trough Rheumatoid Factor Complement C4 Miscellaneous Test Crossmatch 01/12/17 01/12/17 01/12/17 11:35 17:45 23:14 WBC RBC Hgb Hct MCV MCH MCHC RDW Plt Count Lymph % (Auto) [place] % (Auto) Lymph # [place] # Baso # Seg Neutrophils % Seg Neuts % (Manual) Lymphocytes % (Manual) Monocytes % (Manual) Eosinophils % (Manual) Basophils % (Manual) Nucleated RBC % Seg Neutrophils # Seg Neutrophils # Man Lymphocytes # (Manual) Monocytes # (Manual) Eosinophils # (Manual) Basophils # (Manual) PT INR Fibrinogen dRVVT Confirm Interp Factor V Activity POC ABG pH POC ABG pCO2 POC ABG pO2 ABG pO2 ABG HCO3 ABG Base Excess ABG Hemoglobin Oxyhemoglobin Sodium Potassium Chloride Carbon Dioxide BUN Creatinine Glucose POC Glucose 146 H 117 H 123 H Lactic Acid Calcium Ionized Calcium Phosphorus Magnesium Direct Bilirubin AST ALT Alkaline Phosphatase Lactate Dehydrogenase Troponin T C-Reactive Protein Total Protein Albumin Prealbumin Triglycerides Cholesterol LDL Cholesterol Direct HDL Cholesterol 25-OH Vitamin D Total PTH Intact Urine pH Urine WBC (Auto) Urine Creatinine Urine Total Protein Fluid Total Protein Vancomycin Trough Rheumatoid Factor Complement C4 Miscellaneous Test Crossmatch 01/13/17 01/13/17 01/13/17 05:32 06:00 12:10 WBC RBC Hgb Hct MCV MCH MCHC RDW Plt Count Lymph % (Auto) [place] % (Auto) Lymph # [place] # Baso # Seg Neutrophils % Seg Neuts % (Manual) Lymphocytes % (Manual) Monocytes % (Manual) Eosinophils % (Manual) Basophils % (Manual) Nucleated RBC % Seg Neutrophils # Seg Neutrophils # Man Lymphocytes # (Manual) Monocytes # (Manual) Eosinophils # (Manual) Basophils # (Manual) PT INR Fibrinogen dRVVT Confirm Interp Factor V Activity POC ABG pH POC ABG pCO2 POC ABG pO2 ABG pO2 ABG HCO3 ABG Base Excess ABG Hemoglobin Oxyhemoglobin Sodium Potassium Chloride Carbon Dioxide BUN 80 H Creatinine 1.4 H Glucose 106 H POC Glucose 106 H Lactic Acid Calcium Ionized Calcium Phosphorus Magnesium Direct Bilirubin AST ALT Alkaline Phosphatase Lactate Dehydrogenase Troponin T C-Reactive Protein Total Protein Albumin Prealbumin Triglycerides Cholesterol LDL Cholesterol Direct HDL Cholesterol 25-OH Vitamin D Total PTH Intact Urine pH Urine WBC (Auto) Urine Creatinine Urine Total Protein Fluid Total Protein 3.0 L Vancomycin Trough Rheumatoid Factor Complement C4 Miscellaneous Test Crossmatch 01/13/17 01/13/17 01/13/17 12:17 15:50 17:30 WBC RBC Hgb Hct MCV MCH MCHC RDW Plt Count Lymph % (Auto) [place] % (Auto) Lymph # [place] # Baso # Seg Neutrophils % Seg Neuts % (Manual) Lymphocytes % (Manual) Monocytes % (Manual) Eosinophils % (Manual) Basophils % (Manual) Nucleated RBC % Seg Neutrophils # Seg Neutrophils # Man Lymphocytes # (Manual) Monocytes # (Manual) Eosinophils # (Manual) Basophils # (Manual) PT 15.4 H INR 1.16 H Fibrinogen dRVVT Confirm Interp Factor V Activity POC ABG pH POC ABG pCO2 POC ABG pO2 ABG pO2 ABG HCO3 ABG Base Excess ABG Hemoglobin Oxyhemoglobin Sodium Potassium Chloride Carbon Dioxide BUN Creatinine Glucose POC Glucose 168 H 110 H Lactic Acid Calcium Ionized Calcium Phosphorus Magnesium Direct Bilirubin AST ALT Alkaline Phosphatase Lactate Dehydrogenase Troponin T C-Reactive Protein Total Protein Albumin Prealbumin Triglycerides Cholesterol LDL Cholesterol Direct HDL Cholesterol 25-OH Vitamin D Total PTH Intact Urine pH Urine WBC (Auto) Urine Creatinine Urine Total Protein Fluid Total Protein Vancomycin Trough Rheumatoid Factor Complement C4 Miscellaneous Test Crossmatch 01/13/17 01/14/17 01/14/17 23:42 05:24 05:30 WBC RBC Hgb Hct MCV MCH MCHC RDW Plt Count Lymph % (Auto) [place] % (Auto) Lymph # [place] # Baso # Seg Neutrophils % Seg Neuts % (Manual) Lymphocytes % (Manual) Monocytes % (Manual) Eosinophils % (Manual) Basophils % (Manual) Nucleated RBC % Seg Neutrophils # Seg Neutrophils # Man Lymphocytes # (Manual) Monocytes # (Manual) Eosinophils # (Manual) Basophils # (Manual) PT INR Fibrinogen dRVVT Confirm Interp Factor V Activity POC ABG pH POC ABG pCO2 POC ABG pO2 ABG pO2 ABG HCO3 ABG Base Excess ABG Hemoglobin Oxyhemoglobin Sodium Potassium Chloride Carbon Dioxide BUN 58 H Creatinine Glucose 114 H POC Glucose 155 H 121 H Lactic Acid Calcium Ionized Calcium Phosphorus Magnesium Direct Bilirubin AST ALT Alkaline Phosphatase Lactate Dehydrogenase Troponin T C-Reactive Protein Total Protein Albumin Prealbumin Triglycerides Cholesterol LDL Cholesterol Direct HDL Cholesterol 25-OH Vitamin D Total PTH Intact Urine pH Urine WBC (Auto) Urine Creatinine Urine Total Protein Fluid Total Protein Vancomycin Trough Rheumatoid Factor Complement C4 Miscellaneous Test Crossmatch 01/14/17 01/14/17 01/15/17 12:48 17:36 00:15 WBC RBC Hgb Hct MCV MCH MCHC RDW Plt Count Lymph % (Auto) [place] % (Auto) Lymph # [place] # Baso # Seg Neutrophils % Seg Neuts % (Manual) Lymphocytes % (Manual) Monocytes % (Manual) Eosinophils % (Manual) Basophils % (Manual) Nucleated RBC % Seg Neutrophils # Seg Neutrophils # Man Lymphocytes # (Manual) Monocytes # (Manual) Eosinophils # (Manual) Basophils # (Manual) PT INR Fibrinogen dRVVT Confirm Interp Factor V Activity POC ABG pH POC ABG pCO2 POC ABG pO2 ABG pO2 ABG HCO3 ABG Base Excess ABG Hemoglobin Oxyhemoglobin Sodium Potassium Chloride Carbon Dioxide BUN Creatinine Glucose POC Glucose 130 H 135 H 132 H Lactic Acid Calcium Ionized Calcium Phosphorus Magnesium Direct Bilirubin AST ALT Alkaline Phosphatase Lactate Dehydrogenase Troponin T C-Reactive Protein Total Protein Albumin Prealbumin Triglycerides Cholesterol LDL Cholesterol Direct HDL Cholesterol 25-OH Vitamin D Total PTH Intact Urine pH Urine WBC (Auto) Urine Creatinine Urine Total Protein Fluid Total Protein Vancomycin Trough Rheumatoid Factor Complement C4 Miscellaneous Test Crossmatch 01/15/17 01/15/17 01/15/17 05:01 11:55 12:45 WBC 16.2 H RBC 3.00 L Hgb 8.1 L Hct 25.4 L MCV MCH 27 L MCHC RDW 17.6 H Plt Count Lymph % (Auto) 11.7 L [place] % (Auto) 7.8 H Lymph # [place] # 1.3 H Baso # Seg Neutrophils % 80.1 H Seg Neuts % (Manual) Lymphocytes % (Manual) Monocytes % (Manual) Eosinophils % (Manual) Basophils % (Manual) Nucleated RBC % Seg Neutrophils # 13.0 H Seg Neutrophils # Man Lymphocytes # (Manual) Monocytes # (Manual) Eosinophils # (Manual) Basophils # (Manual) PT INR Fibrinogen dRVVT Confirm Interp Factor V Activity POC ABG pH POC ABG pCO2 POC ABG pO2 ABG pO2 ABG HCO3 ABG Base Excess ABG Hemoglobin Oxyhemoglobin Sodium Potassium Chloride Carbon Dioxide BUN Creatinine Glucose POC Glucose 126 H 125 H Lactic Acid Calcium Ionized Calcium Phosphorus Magnesium Direct Bilirubin AST ALT Alkaline Phosphatase Lactate Dehydrogenase Troponin T C-Reactive Protein Total Protein Albumin Prealbumin Triglycerides Cholesterol LDL Cholesterol Direct HDL Cholesterol 25-OH Vitamin D Total PTH Intact Urine pH Urine WBC (Auto) Urine Creatinine Urine Total Protein Fluid Total Protein Vancomycin Trough Rheumatoid Factor Complement C4 Miscellaneous Test Crossmatch 01/15/17 01/15/17 01/15/17 12:45 17:31 23:39 WBC RBC Hgb Hct MCV MCH MCHC RDW Plt Count Lymph % (Auto) [place] % (Auto) Lymph # [place] # Baso # Seg Neutrophils % Seg Neuts % (Manual) Lymphocytes % (Manual) Monocytes % (Manual) Eosinophils % (Manual) Basophils % (Manual) Nucleated RBC % Seg Neutrophils # Seg Neutrophils # Man Lymphocytes # (Manual) Monocytes # (Manual) Eosinophils # (Manual) Basophils # (Manual) PT INR Fibrinogen dRVVT Confirm Interp Factor V Activity POC ABG pH POC ABG pCO2 POC ABG pO2 ABG pO2 ABG HCO3 ABG Base Excess ABG Hemoglobin Oxyhemoglobin Sodium 136 L Potassium Chloride Carbon Dioxide BUN 87 H Creatinine 1.7 H Glucose 108 H POC Glucose 129 H 112 H Lactic Acid Calcium Ionized Calcium Phosphorus Magnesium Direct Bilirubin AST ALT Alkaline Phosphatase Lactate Dehydrogenase Troponin T C-Reactive Protein Total Protein Albumin Prealbumin Triglycerides Cholesterol LDL Cholesterol Direct HDL Cholesterol 25-OH Vitamin D Total PTH Intact Urine pH Urine WBC (Auto) Urine Creatinine Urine Total Protein Fluid Total Protein Vancomycin Trough Rheumatoid Factor Complement C4 Miscellaneous Test Crossmatch 01/16/17 01/16/17 01/16/17 05:23 11:42 12:32 WBC RBC Hgb Hct MCV MCH MCHC RDW Plt Count Lymph % (Auto) [place] % (Auto) Lymph # [place] # Baso # Seg Neutrophils % Seg Neuts % (Manual) Lymphocytes % (Manual) Monocytes % (Manual) Eosinophils % (Manual) Basophils % (Manual) Nucleated RBC % Seg Neutrophils # Seg Neutrophils # Man Lymphocytes # (Manual) Monocytes # (Manual) Eosinophils # (Manual) Basophils # (Manual) PT INR Fibrinogen dRVVT Confirm Interp Factor V Activity POC ABG pH 7.499 H POC ABG pCO2 30.9 L POC ABG pO2 51 L ABG pO2 ABG HCO3 ABG Base Excess ABG Hemoglobin Oxyhemoglobin Sodium Potassium Chloride Carbon Dioxide BUN Creatinine Glucose POC Glucose 118 H 133 H Lactic Acid Calcium Ionized Calcium Phosphorus Magnesium Direct Bilirubin AST ALT Alkaline Phosphatase Lactate Dehydrogenase Troponin T C-Reactive Protein Total Protein Albumin Prealbumin Triglycerides Cholesterol LDL Cholesterol Direct HDL Cholesterol 25-OH Vitamin D Total PTH Intact Urine pH Urine WBC (Auto) Urine Creatinine Urine Total Protein Fluid Total Protein Vancomycin Trough Rheumatoid Factor Complement C4 Miscellaneous Test Crossmatch 01/16/17 01/16/17 01/16/17 17:52 23:57 Unknown WBC RBC Hgb Hct MCV MCH MCHC RDW Plt Count Lymph % (Auto) [place] % (Auto) Lymph # [place] # Baso # Seg Neutrophils % Seg Neuts % (Manual) Lymphocytes % (Manual) Monocytes % (Manual) Eosinophils % (Manual) Basophils % (Manual) Nucleated RBC % Seg Neutrophils # Seg Neutrophils # Man Lymphocytes # (Manual) Monocytes # (Manual) Eosinophils # (Manual) Basophils # (Manual) PT INR Fibrinogen dRVVT Confirm Interp Factor V Activity POC ABG pH POC ABG pCO2 POC ABG pO2 ABG pO2 ABG HCO3 ABG Base Excess ABG Hemoglobin Oxyhemoglobin Sodium 135 L Potassium Chloride Carbon Dioxide BUN 101 H Creatinine 1.8 H Glucose 117 H POC Glucose 130 H 143 H Lactic Acid Calcium Ionized Calcium Phosphorus 5.80 H Magnesium Direct Bilirubin AST ALT Alkaline Phosphatase Lactate Dehydrogenase Troponin T C-Reactive Protein Total Protein Albumin Prealbumin Triglycerides Cholesterol LDL Cholesterol Direct HDL Cholesterol 25-OH Vitamin D Total PTH Intact Urine pH Urine WBC (Auto) Urine Creatinine Urine Total Protein Fluid Total Protein Vancomycin Trough Rheumatoid Factor Complement C4 Miscellaneous Test Crossmatch 01/17/17 01/17/17 01/17/17 05:30 05:46 11:49 WBC RBC Hgb Hct MCV MCH MCHC RDW Plt Count Lymph % (Auto) [place] % (Auto) Lymph # [place] # Baso # Seg Neutrophils % Seg Neuts % (Manual) Lymphocytes % (Manual) Monocytes % (Manual) Eosinophils % (Manual) Basophils % (Manual) Nucleated RBC % Seg Neutrophils # Seg Neutrophils # Man Lymphocytes # (Manual) Monocytes # (Manual) Eosinophils # (Manual) Basophils # (Manual) PT INR Fibrinogen dRVVT Confirm Interp Factor V Activity POC ABG pH POC ABG pCO2 POC ABG pO2 ABG pO2 ABG HCO3 ABG Base Excess ABG Hemoglobin Oxyhemoglobin Sodium 134 L Potassium Chloride 95.8 L Carbon Dioxide BUN 66 H Creatinine 1.3 H Glucose 138 H POC Glucose 147 H 124 H Lactic Acid Calcium Ionized Calcium Phosphorus Magnesium Direct Bilirubin AST ALT Alkaline Phosphatase 254 H Lactate Dehydrogenase Troponin T C-Reactive Protein Total Protein Albumin 1.3 L Prealbumin Triglycerides Cholesterol LDL Cholesterol Direct HDL Cholesterol 25-OH Vitamin D Total PTH Intact Urine pH Urine WBC (Auto) Urine Creatinine Urine Total Protein Fluid Total Protein Vancomycin Trough Rheumatoid Factor Complement C4 Miscellaneous Test Crossmatch 01/17/17 01/17/17 01/18/17 17:30 23:41 05:15 WBC RBC Hgb Hct MCV MCH MCHC RDW Plt Count Lymph % (Auto) [place] % (Auto) Lymph # [place] # Baso # Seg Neutrophils % Seg Neuts % (Manual) Lymphocytes % (Manual) Monocytes % (Manual) Eosinophils % (Manual) Basophils % (Manual) Nucleated RBC % Seg Neutrophils # Seg Neutrophils # Man Lymphocytes # (Manual) Monocytes # (Manual) Eosinophils # (Manual) Basophils # (Manual) PT INR Fibrinogen dRVVT Confirm Interp Factor V Activity POC ABG pH POC ABG pCO2 POC ABG pO2 ABG pO2 ABG HCO3 ABG Base Excess ABG Hemoglobin Oxyhemoglobin Sodium Potassium Chloride Carbon Dioxide BUN 89 H Creatinine 1.7 H Glucose 118 H POC Glucose 137 H 119 H Lactic Acid Calcium Ionized Calcium Phosphorus Magnesium Direct Bilirubin AST ALT Alkaline Phosphatase Lactate Dehydrogenase Troponin T C-Reactive Protein Total Protein Albumin Prealbumin Triglycerides Cholesterol LDL Cholesterol Direct HDL Cholesterol 25-OH Vitamin D Total PTH Intact Urine pH Urine WBC (Auto) Urine Creatinine Urine Total Protein Fluid Total Protein Vancomycin Trough Rheumatoid Factor Complement C4 Miscellaneous Test Crossmatch 01/18/17 01/18/17 01/18/17 05:19 12:16 18:11 WBC RBC Hgb Hct MCV MCH MCHC RDW Plt Count Lymph % (Auto) [place] % (Auto) Lymph # [place] # Baso # Seg Neutrophils % Seg Neuts % (Manual) Lymphocytes % (Manual) Monocytes % (Manual) Eosinophils % (Manual) Basophils % (Manual) Nucleated RBC % Seg Neutrophils # Seg Neutrophils # Man Lymphocytes # (Manual) Monocytes # (Manual) Eosinophils # (Manual) Basophils # (Manual) PT INR Fibrinogen dRVVT Confirm Interp Factor V Activity POC ABG pH POC ABG pCO2 POC ABG pO2 ABG pO2 ABG HCO3 ABG Base Excess ABG Hemoglobin Oxyhemoglobin Sodium Potassium Chloride Carbon Dioxide BUN Creatinine Glucose POC Glucose 134 H 188 H 113 H Lactic Acid Calcium Ionized Calcium Phosphorus Magnesium Direct Bilirubin AST ALT Alkaline Phosphatase Lactate Dehydrogenase Troponin T C-Reactive Protein Total Protein Albumin Prealbumin Triglycerides Cholesterol LDL Cholesterol Direct HDL Cholesterol 25-OH Vitamin D Total PTH Intact Urine pH Urine WBC (Auto) Urine Creatinine Urine Total Protein Fluid Total Protein Vancomycin Trough Rheumatoid Factor Complement C4 Miscellaneous Test Crossmatch 01/19/17 01/19/17 01/19/17 00:00 05:30 05:36 WBC RBC Hgb Hct MCV MCH MCHC RDW Plt Count Lymph % (Auto) [place] % (Auto) Lymph # [place] # Baso # Seg Neutrophils % Seg Neuts % (Manual) Lymphocytes % (Manual) Monocytes % (Manual) Eosinophils % (Manual) Basophils % (Manual) Nucleated RBC % Seg Neutrophils # Seg Neutrophils # Man Lymphocytes # (Manual) Monocytes # (Manual) Eosinophils # (Manual) Basophils # (Manual) PT INR Fibrinogen dRVVT Confirm Interp Factor V Activity POC ABG pH POC ABG pCO2 POC ABG pO2 ABG pO2 ABG HCO3 ABG Base Excess ABG Hemoglobin Oxyhemoglobin Sodium Potassium Chloride Carbon Dioxide BUN 70 H Creatinine 1.5 H Glucose 121 H POC Glucose 137 H 155 H Lactic Acid Calcium Ionized Calcium Phosphorus 2.10 L D Magnesium Direct Bilirubin AST ALT Alkaline Phosphatase Lactate Dehydrogenase Troponin T C-Reactive Protein Total Protein Albumin Prealbumin Triglycerides Cholesterol LDL Cholesterol Direct HDL Cholesterol 25-OH Vitamin D Total PTH Intact Urine pH Urine WBC (Auto) Urine Creatinine Urine Total Protein Fluid Total Protein Vancomycin Trough Rheumatoid Factor Complement C4 Miscellaneous Test Crossmatch 01/19/17 01/19/17 01/19/17 11:59 15:32 17:57 WBC RBC Hgb Hct MCV MCH MCHC RDW Plt Count Lymph % (Auto) [place] % (Auto) Lymph # [place] # Baso # Seg Neutrophils % Seg Neuts % (Manual) Lymphocytes % (Manual) Monocytes % (Manual) Eosinophils % (Manual) Basophils % (Manual) Nucleated RBC % Seg Neutrophils # Seg Neutrophils # Man Lymphocytes # (Manual) Monocytes # (Manual) Eosinophils # (Manual) Basophils # (Manual) PT INR Fibrinogen dRVVT Confirm Interp Factor V Activity POC ABG pH POC ABG pCO2 33.1 L POC ABG pO2 76 L ABG pO2 ABG HCO3 ABG Base Excess ABG Hemoglobin Oxyhemoglobin Sodium Potassium Chloride Carbon Dioxide BUN Creatinine Glucose POC Glucose 156 H 129 H Lactic Acid Calcium Ionized Calcium Phosphorus Magnesium Direct Bilirubin AST ALT Alkaline Phosphatase Lactate Dehydrogenase Troponin T C-Reactive Protein Total Protein Albumin Prealbumin Triglycerides Cholesterol LDL Cholesterol Direct HDL Cholesterol 25-OH Vitamin D Total PTH Intact Urine pH Urine WBC (Auto) Urine Creatinine Urine Total Protein Fluid Total Protein Vancomycin Trough Rheumatoid Factor Complement C4 Miscellaneous Test Crossmatch 01/19/17 01/20/17 01/20/17 23:49 04:00 05:21 WBC RBC Hgb Hct MCV MCH MCHC RDW Plt Count Lymph % (Auto) [place] % (Auto) Lymph # [place] # Baso # Seg Neutrophils % Seg Neuts % (Manual) Lymphocytes % (Manual) Monocytes % (Manual) Eosinophils % (Manual) Basophils % (Manual) Nucleated RBC % Seg Neutrophils # Seg Neutrophils # Man Lymphocytes # (Manual) Monocytes # (Manual) Eosinophils # (Manual) Basophils # (Manual) PT INR Fibrinogen dRVVT Confirm Interp Factor V Activity POC ABG pH POC ABG pCO2 POC ABG pO2 ABG pO2 ABG HCO3 ABG Base Excess ABG Hemoglobin Oxyhemoglobin Sodium Potassium Chloride Carbon Dioxide BUN 96 H Creatinine 1.9 H Glucose 106 H POC Glucose 125 H 130 H Lactic Acid Calcium Ionized Calcium Phosphorus 2.40 L Magnesium Direct Bilirubin AST ALT Alkaline Phosphatase Lactate Dehydrogenase Troponin T C-Reactive Protein Total Protein Albumin Prealbumin Triglycerides Cholesterol LDL Cholesterol Direct HDL Cholesterol 25-OH Vitamin D Total PTH Intact Urine pH Urine WBC (Auto) Urine Creatinine Urine Total Protein Fluid Total Protein Vancomycin Trough Rheumatoid Factor Complement C4 Miscellaneous Test Crossmatch 01/20/17 01/20/17 01/20/17 11:58 12:17 17:26 WBC RBC Hgb Hct MCV MCH MCHC RDW Plt Count Lymph % (Auto) [place] % (Auto) Lymph # [place] # Baso # Seg Neutrophils % Seg Neuts % (Manual) Lymphocytes % (Manual) Monocytes % (Manual) Eosinophils % (Manual) Basophils % (Manual) Nucleated RBC % Seg Neutrophils # Seg Neutrophils # Man Lymphocytes # (Manual) Monocytes # (Manual) Eosinophils # (Manual) Basophils # (Manual) PT INR Fibrinogen dRVVT Confirm Interp Factor V Activity POC ABG pH POC ABG pCO2 POC ABG pO2 70 L ABG pO2 ABG HCO3 ABG Base Excess ABG Hemoglobin Oxyhemoglobin Sodium Potassium Chloride Carbon Dioxide BUN Creatinine Glucose POC Glucose 118 H 154 H Lactic Acid Calcium Ionized Calcium Phosphorus Magnesium Direct Bilirubin AST ALT Alkaline Phosphatase Lactate Dehydrogenase Troponin T C-Reactive Protein Total Protein Albumin Prealbumin Triglycerides Cholesterol LDL Cholesterol Direct HDL Cholesterol 25-OH Vitamin D Total PTH Intact Urine pH Urine WBC (Auto) Urine Creatinine Urine Total Protein Fluid Total Protein Vancomycin Trough Rheumatoid Factor Complement C4 Miscellaneous Test Crossmatch 01/21/17 01/21/17 01/21/17 04:00 04:56 11:46 WBC RBC Hgb Hct MCV MCH MCHC RDW Plt Count Lymph % (Auto) [place] % (Auto) Lymph # [place] # Baso # Seg Neutrophils % Seg Neuts % (Manual) Lymphocytes % (Manual) Monocytes % (Manual) Eosinophils % (Manual) Basophils % (Manual) Nucleated RBC % Seg Neutrophils # Seg Neutrophils # Man Lymphocytes # (Manual) Monocytes # (Manual) Eosinophils # (Manual) Basophils # (Manual) PT INR Fibrinogen dRVVT Confirm Interp Factor V Activity POC ABG pH POC ABG pCO2 POC ABG pO2 ABG pO2 ABG HCO3 ABG Base Excess ABG Hemoglobin Oxyhemoglobin Sodium Potassium 3.5 L Chloride 97.4 L Carbon Dioxide BUN 66 H Creatinine 1.4 H Glucose POC Glucose 116 H 106 H Lactic Acid Calcium Ionized Calcium Phosphorus 2.10 L Magnesium Direct Bilirubin AST ALT Alkaline Phosphatase Lactate Dehydrogenase Troponin T C-Reactive Protein Total Protein Albumin Prealbumin Triglycerides Cholesterol LDL Cholesterol Direct HDL Cholesterol 25-OH Vitamin D Total PTH Intact Urine pH Urine WBC (Auto) Urine Creatinine Urine Total Protein Fluid Total Protein Vancomycin Trough Rheumatoid Factor Complement C4 Miscellaneous Test Crossmatch 01/21/17 01/21/17 01/22/17 17:25 23:49 05:35 WBC RBC Hgb Hct MCV MCH MCHC RDW Plt Count Lymph % (Auto) [place] % (Auto) Lymph # [place] # Baso # Seg Neutrophils % Seg Neuts % (Manual) Lymphocytes % (Manual) Monocytes % (Manual) Eosinophils % (Manual) Basophils % (Manual) Nucleated RBC % Seg Neutrophils # Seg Neutrophils # Man Lymphocytes # (Manual) Monocytes # (Manual) Eosinophils # (Manual) Basophils # (Manual) PT INR Fibrinogen dRVVT Confirm Interp Factor V Activity POC ABG pH POC ABG pCO2 POC ABG pO2 ABG pO2 ABG HCO3 ABG Base Excess ABG Hemoglobin Oxyhemoglobin Sodium Potassium Chloride Carbon Dioxide BUN Creatinine Glucose POC Glucose 106 H 133 H 107 H Lactic Acid Calcium Ionized Calcium Phosphorus Magnesium Direct Bilirubin AST ALT Alkaline Phosphatase Lactate Dehydrogenase Troponin T C-Reactive Protein Total Protein Albumin Prealbumin Triglycerides Cholesterol LDL Cholesterol Direct HDL Cholesterol 25-OH Vitamin D Total PTH Intact Urine pH Urine WBC (Auto) Urine Creatinine Urine Total Protein Fluid Total Protein Vancomycin Trough Rheumatoid Factor Complement C4 Miscellaneous Test Crossmatch 01/22/17 01/22/17 01/22/17 07:20 07:20 11:31 WBC RBC 2.75 L Hgb 7.5 L Hct 22.7 L MCV MCH 27 L MCHC RDW 17.5 H Plt Count Lymph % (Auto) [place] % (Auto) Lymph # [place] # Baso # Seg Neutrophils % Seg Neuts % (Manual) Lymphocytes % (Manual) Monocytes % (Manual) Eosinophils % (Manual) Basophils % (Manual) Nucleated RBC % Seg Neutrophils # Seg Neutrophils # Man Lymphocytes # (Manual) Monocytes # (Manual) Eosinophils # (Manual) Basophils # (Manual) PT INR Fibrinogen dRVVT Confirm Interp Factor V Activity POC ABG pH POC ABG pCO2 POC ABG pO2 ABG pO2 ABG HCO3 ABG Base Excess ABG Hemoglobin Oxyhemoglobin Sodium Potassium 3.3 L Chloride Carbon Dioxide BUN 42 H Creatinine Glucose 105 H POC Glucose 124 H Lactic Acid Calcium Ionized Calcium Phosphorus 1.70 L Magnesium Direct Bilirubin AST ALT Alkaline Phosphatase Lactate Dehydrogenase Troponin T C-Reactive Protein Total Protein Albumin Prealbumin Triglycerides Cholesterol LDL Cholesterol Direct HDL Cholesterol 25-OH Vitamin D Total PTH Intact Urine pH Urine WBC (Auto) Urine Creatinine Urine Total Protein Fluid Total Protein Vancomycin Trough Rheumatoid Factor Complement C4 Miscellaneous Test Crossmatch 01/22/17 01/22/17 01/23/17 17:16 23:35 05:35 WBC RBC Hgb Hct MCV MCH MCHC RDW Plt Count Lymph % (Auto) [place] % (Auto) Lymph # [place] # Baso # Seg Neutrophils % Seg Neuts % (Manual) Lymphocytes % (Manual) Monocytes % (Manual) Eosinophils % (Manual) Basophils % (Manual) Nucleated RBC % Seg Neutrophils # Seg Neutrophils # Man Lymphocytes # (Manual) Monocytes # (Manual) Eosinophils # (Manual) Basophils # (Manual) PT INR Fibrinogen dRVVT Confirm Interp Factor V Activity POC ABG pH POC ABG pCO2 POC ABG pO2 ABG pO2 ABG HCO3 ABG Base Excess ABG Hemoglobin Oxyhemoglobin Sodium Potassium Chloride Carbon Dioxide BUN Creatinine Glucose POC Glucose 135 H 120 H 111 H Lactic Acid Calcium Ionized Calcium Phosphorus Magnesium Direct Bilirubin AST ALT Alkaline Phosphatase Lactate Dehydrogenase Troponin T C-Reactive Protein Total Protein Albumin Prealbumin Triglycerides Cholesterol LDL Cholesterol Direct HDL Cholesterol 25-OH Vitamin D Total PTH Intact Urine pH Urine WBC (Auto) Urine Creatinine Urine Total Protein Fluid Total Protein Vancomycin Trough Rheumatoid Factor Complement C4 Miscellaneous Test Crossmatch 01/23/17 01/23/17 01/23/17 06:10 17:27 23:44 WBC RBC Hgb Hct MCV MCH MCHC RDW Plt Count Lymph % (Auto) [place] % (Auto) Lymph # [place] # Baso # Seg Neutrophils % Seg Neuts % (Manual) Lymphocytes % (Manual) Monocytes % (Manual) Eosinophils % (Manual) Basophils % (Manual) Nucleated RBC % Seg Neutrophils # Seg Neutrophils # Man Lymphocytes # (Manual) Monocytes # (Manual) Eosinophils # (Manual) Basophils # (Manual) PT INR Fibrinogen dRVVT Confirm Interp Factor V Activity POC ABG pH POC ABG pCO2 POC ABG pO2 ABG pO2 ABG HCO3 ABG Base Excess ABG Hemoglobin Oxyhemoglobin Sodium Potassium 3.3 L Chloride Carbon Dioxide BUN 66 H Creatinine 1.3 H Glucose 109 H POC Glucose 120 H 115 H Lactic Acid Calcium Ionized Calcium Phosphorus 2.20 L D Magnesium Direct Bilirubin AST ALT Alkaline Phosphatase Lactate Dehydrogenase Troponin T C-Reactive Protein Total Protein Albumin Prealbumin Triglycerides Cholesterol LDL Cholesterol Direct HDL Cholesterol 25-OH Vitamin D Total PTH Intact Urine pH Urine WBC (Auto) Urine Creatinine Urine Total Protein Fluid Total Protein Vancomycin Trough Rheumatoid Factor Complement C4 Miscellaneous Test Crossmatch 01/24/17 01/24/17 01/24/17 05:19 05:50 12:19 WBC RBC Hgb Hct MCV MCH MCHC RDW Plt Count Lymph % (Auto) [place] % (Auto) Lymph # [place] # Baso # Seg Neutrophils % Seg Neuts % (Manual) Lymphocytes % (Manual) Monocytes % (Manual) Eosinophils % (Manual) Basophils % (Manual) Nucleated RBC % Seg Neutrophils # Seg Neutrophils # Man Lymphocytes # (Manual) Monocytes # (Manual) Eosinophils # (Manual) Basophils # (Manual) PT INR Fibrinogen dRVVT Confirm Interp Factor V Activity POC ABG pH POC ABG pCO2 POC ABG pO2 ABG pO2 ABG HCO3 ABG Base Excess ABG Hemoglobin Oxyhemoglobin Sodium Potassium Chloride Carbon Dioxide BUN 47 H Creatinine Glucose 117 H POC Glucose 126 H 119 H Lactic Acid Calcium Ionized Calcium Phosphorus 2.30 L Magnesium 1.60 L Direct Bilirubin AST ALT Alkaline Phosphatase Lactate Dehydrogenase Troponin T C-Reactive Protein Total Protein Albumin Prealbumin Triglycerides Cholesterol LDL Cholesterol Direct HDL Cholesterol 25-OH Vitamin D Total PTH Intact Urine pH Urine WBC (Auto) Urine Creatinine Urine Total Protein Fluid Total Protein Vancomycin Trough Rheumatoid Factor Complement C4 Miscellaneous Test Crossmatch 01/24/17 01/25/17 01/25/17 17:08 00:37 04:00 WBC RBC Hgb Hct MCV MCH MCHC RDW Plt Count Lymph % (Auto) [place] % (Auto) Lymph # [place] # Baso # Seg Neutrophils % Seg Neuts % (Manual) Lymphocytes % (Manual) Monocytes % (Manual) Eosinophils % (Manual) Basophils % (Manual) Nucleated RBC % Seg Neutrophils # Seg Neutrophils # Man Lymphocytes # (Manual) Monocytes # (Manual) Eosinophils # (Manual) Basophils # (Manual) PT INR Fibrinogen dRVVT Confirm Interp Factor V Activity POC ABG pH POC ABG pCO2 POC ABG pO2 ABG pO2 ABG HCO3 ABG Base Excess ABG Hemoglobin Oxyhemoglobin Sodium Potassium Chloride Carbon Dioxide BUN 72 H Creatinine 1.3 H Glucose POC Glucose 127 H 110 H Lactic Acid Calcium Ionized Calcium Phosphorus Magnesium Direct Bilirubin AST ALT Alkaline Phosphatase Lactate Dehydrogenase Troponin T C-Reactive Protein Total Protein Albumin Prealbumin Triglycerides Cholesterol LDL Cholesterol Direct HDL Cholesterol 25-OH Vitamin D Total PTH Intact Urine pH Urine WBC (Auto) Urine Creatinine Urine Total Protein Fluid Total Protein Vancomycin Trough Rheumatoid Factor Complement C4 Miscellaneous Test Crossmatch 01/25/17 01/25/17 01/25/17 04:00 11:15 13:05 WBC RBC 2.49 L Hgb 6.7 L Hct 20.9 L MCV MCH 27 L MCHC RDW 18.8 H Plt Count Lymph % (Auto) [place] % (Auto) 10.1 H Lymph # [place] # 1.0 H Baso # Seg Neutrophils % Seg Neuts % (Manual) Lymphocytes % (Manual) Monocytes % (Manual) Eosinophils % (Manual) Basophils % (Manual) Nucleated RBC % Seg Neutrophils # Seg Neutrophils # Man Lymphocytes # (Manual) Monocytes # (Manual) Eosinophils # (Manual) Basophils # (Manual) PT INR Fibrinogen dRVVT Confirm Interp Factor V Activity POC ABG pH POC ABG pCO2 POC ABG pO2 ABG pO2 ABG HCO3 ABG Base Excess ABG Hemoglobin Oxyhemoglobin Sodium Potassium Chloride Carbon Dioxide BUN Creatinine Glucose POC Glucose 128 H Lactic Acid Calcium Ionized Calcium Phosphorus Magnesium Direct Bilirubin AST ALT Alkaline Phosphatase Lactate Dehydrogenase Troponin T C-Reactive Protein Total Protein Albumin Prealbumin Triglycerides Cholesterol LDL Cholesterol Direct HDL Cholesterol 25-OH Vitamin D Total PTH Intact Urine pH Urine WBC (Auto) Urine Creatinine Urine Total Protein Fluid Total Protein Vancomycin Trough Rheumatoid Factor Complement C4 Miscellaneous Test Crossmatch See Detail 01/25/17 01/25/17 01/26/17 18:02 23:07 01:20 WBC RBC Hgb Hct MCV MCH MCHC RDW Plt Count Lymph % (Auto) [place] % (Auto) Lymph # [place] # Baso # Seg Neutrophils % Seg Neuts % (Manual) Lymphocytes % (Manual) Monocytes % (Manual) Eosinophils % (Manual) Basophils % (Manual) Nucleated RBC % Seg Neutrophils # Seg Neutrophils # Man Lymphocytes # (Manual) Monocytes # (Manual) Eosinophils # (Manual) Basophils # (Manual) PT INR Fibrinogen dRVVT Confirm Interp Factor V Activity POC ABG pH POC ABG pCO2 POC ABG pO2 ABG pO2 ABG HCO3 ABG Base Excess ABG Hemoglobin Oxyhemoglobin Sodium Potassium Chloride Carbon Dioxide BUN Creatinine Glucose POC Glucose 120 H 123 H 112 H Lactic Acid Calcium Ionized Calcium Phosphorus Magnesium Direct Bilirubin AST ALT Alkaline Phosphatase Lactate Dehydrogenase Troponin T C-Reactive Protein Total Protein Albumin Prealbumin Triglycerides Cholesterol LDL Cholesterol Direct HDL Cholesterol 25-OH Vitamin D Total PTH Intact Urine pH Urine WBC (Auto) Urine Creatinine Urine Total Protein Fluid Total Protein Vancomycin Trough Rheumatoid Factor Complement C4 Miscellaneous Test Crossmatch 01/26/17 01/26/17 01/26/17 04:20 04:20 11:23 WBC 13.1 H RBC 3.28 L Hgb 9.0 L Hct 26.9 L D MCV MCH 27 L MCHC RDW 17.2 H Plt Count Lymph % (Auto) [place] % (Auto) 9.0 H Lymph # [place] # 1.2 H Baso # Seg Neutrophils % 73.1 H Seg Neuts % (Manual) Lymphocytes % (Manual) Monocytes % (Manual) Eosinophils % (Manual) Basophils % (Manual) Nucleated RBC % Seg Neutrophils # 9.6 H Seg Neutrophils # Man Lymphocytes # (Manual) Monocytes # (Manual) Eosinophils # (Manual) Basophils # (Manual) PT INR Fibrinogen dRVVT Confirm Interp Factor V Activity POC ABG pH POC ABG pCO2 POC ABG pO2 ABG pO2 ABG HCO3 ABG Base Excess ABG Hemoglobin Oxyhemoglobin Sodium Potassium Chloride Carbon Dioxide BUN 51 H Creatinine Glucose 117 H POC Glucose 125 H Lactic Acid Calcium Ionized Calcium Phosphorus Magnesium Direct Bilirubin AST ALT Alkaline Phosphatase Lactate Dehydrogenase Troponin T C-Reactive Protein Total Protein Albumin Prealbumin Triglycerides Cholesterol LDL Cholesterol Direct HDL Cholesterol 25-OH Vitamin D Total PTH Intact Urine pH Urine WBC (Auto) Urine Creatinine Urine Total Protein Fluid Total Protein Vancomycin Trough Rheumatoid Factor Complement C4 Miscellaneous Test Crossmatch 01/26/17 01/27/17 01/27/17 17:11 00:30 04:00 WBC RBC Hgb Hct MCV MCH MCHC RDW Plt Count Lymph % (Auto) [place] % (Auto) Lymph # [place] # Baso # Seg Neutrophils % Seg Neuts % (Manual) Lymphocytes % (Manual) Monocytes % (Manual) Eosinophils % (Manual) Basophils % (Manual) Nucleated RBC % Seg Neutrophils # Seg Neutrophils # Man Lymphocytes # (Manual) Monocytes # (Manual) Eosinophils # (Manual) Basophils # (Manual) PT INR Fibrinogen dRVVT Confirm Interp Factor V Activity POC ABG pH POC ABG pCO2 POC ABG pO2 ABG pO2 ABG HCO3 ABG Base Excess ABG Hemoglobin Oxyhemoglobin Sodium Potassium Chloride 97.7 L Carbon Dioxide 21 L BUN 79 H Creatinine 1.7 H D Glucose 112 H POC Glucose 133 H 135 H Lactic Acid Calcium Ionized Calcium Phosphorus 5.00 H D Magnesium Direct Bilirubin AST ALT Alkaline Phosphatase Lactate Dehydrogenase Troponin T C-Reactive Protein Total Protein Albumin Prealbumin Triglycerides Cholesterol LDL Cholesterol Direct HDL Cholesterol 25-OH Vitamin D Total PTH Intact Urine pH Urine WBC (Auto) Urine Creatinine Urine Total Protein Fluid Total Protein Vancomycin Trough Rheumatoid Factor Complement C4 Miscellaneous Test Crossmatch 01/27/17 01/27/17 01/27/17 05:12 12:18 17:25 WBC RBC Hgb Hct MCV MCH MCHC RDW Plt Count Lymph % (Auto) [place] % (Auto) Lymph # [place] # Baso # Seg Neutrophils % Seg Neuts % (Manual) Lymphocytes % (Manual) Monocytes % (Manual) Eosinophils % (Manual) Basophils % (Manual) Nucleated RBC % Seg Neutrophils # Seg Neutrophils # Man Lymphocytes # (Manual) Monocytes # (Manual) Eosinophils # (Manual) Basophils # (Manual) PT INR Fibrinogen dRVVT Confirm Interp Factor V Activity POC ABG pH POC ABG pCO2 POC ABG pO2 ABG pO2 ABG HCO3 ABG Base Excess ABG Hemoglobin Oxyhemoglobin Sodium Potassium Chloride Carbon Dioxide BUN Creatinine Glucose POC Glucose 116 H 153 H 152 H Lactic Acid Calcium Ionized Calcium Phosphorus Magnesium Direct Bilirubin AST ALT Alkaline Phosphatase Lactate Dehydrogenase Troponin T C-Reactive Protein Total Protein Albumin Prealbumin Triglycerides Cholesterol LDL Cholesterol Direct HDL Cholesterol 25-OH Vitamin D Total PTH Intact Urine pH Urine WBC (Auto) Urine Creatinine Urine Total Protein Fluid Total Protein Vancomycin Trough Rheumatoid Factor Complement C4 Miscellaneous Test Crossmatch 01/27/17 01/28/17 01/28/17 23:42 04:00 04:00 WBC 14.4 H RBC 2.82 L Hgb 7.4 L Hct 23.5 L MCV MCH 26 L MCHC RDW 17.6 H Plt Count Lymph % (Auto) 10.2 L [place] % (Auto) 11.0 H Lymph # [place] # 1.6 H Baso # Seg Neutrophils % 78.0 H Seg Neuts % (Manual) Lymphocytes % (Manual) Monocytes % (Manual) Eosinophils % (Manual) Basophils % (Manual) Nucleated RBC % Seg Neutrophils # 11.3 H Seg Neutrophils # Man Lymphocytes # (Manual) Monocytes # (Manual) Eosinophils # (Manual) Basophils # (Manual) PT INR Fibrinogen dRVVT Confirm Interp Factor V Activity POC ABG pH POC ABG pCO2 POC ABG pO2 ABG pO2 ABG HCO3 ABG Base Excess ABG Hemoglobin Oxyhemoglobin Sodium Potassium Chloride Carbon Dioxide BUN 55 H Creatinine 1.3 H Glucose 114 H POC Glucose 121 H Lactic Acid Calcium Ionized Calcium Phosphorus Magnesium Direct Bilirubin AST ALT Alkaline Phosphatase Lactate Dehydrogenase Troponin T C-Reactive Protein Total Protein Albumin 1.4 L Prealbumin Triglycerides Cholesterol LDL Cholesterol Direct HDL Cholesterol 25-OH Vitamin D Total PTH Intact Urine pH Urine WBC (Auto) Urine Creatinine Urine Total Protein Fluid Total Protein Vancomycin Trough Rheumatoid Factor Complement C4 Miscellaneous Test Crossmatch 01/28/17 01/28/17 01/29/17 04:59 12:30 00:02 WBC RBC Hgb Hct MCV MCH MCHC RDW Plt Count Lymph % (Auto) [place] % (Auto) Lymph # [place] # Baso # Seg Neutrophils % Seg Neuts % (Manual) Lymphocytes % (Manual) Monocytes % (Manual) Eosinophils % (Manual) Basophils % (Manual) Nucleated RBC % Seg Neutrophils # Seg Neutrophils # Man Lymphocytes # (Manual) Monocytes # (Manual) Eosinophils # (Manual) Basophils # (Manual) PT INR Fibrinogen dRVVT Confirm Interp Factor V Activity POC ABG pH POC ABG pCO2 POC ABG pO2 ABG pO2 ABG HCO3 ABG Base Excess ABG Hemoglobin Oxyhemoglobin Sodium Potassium Chloride Carbon Dioxide BUN Creatinine Glucose POC Glucose 126 H 119 H 138 H Lactic Acid Calcium Ionized Calcium Phosphorus Magnesium Direct Bilirubin AST ALT Alkaline Phosphatase Lactate Dehydrogenase Troponin T C-Reactive Protein Total Protein Albumin Prealbumin Triglycerides Cholesterol LDL Cholesterol Direct HDL Cholesterol 25-OH Vitamin D Total PTH Intact Urine pH Urine WBC (Auto) Urine Creatinine Urine Total Protein Fluid Total Protein Vancomycin Trough Rheumatoid Factor Complement C4 Miscellaneous Test Crossmatch 01/29/17 01/29/17 01/29/17 04:58 06:15 11:35 WBC RBC Hgb Hct MCV MCH MCHC RDW Plt Count Lymph % (Auto) [place] % (Auto) Lymph # [place] # Baso # Seg Neutrophils % Seg Neuts % (Manual) Lymphocytes % (Manual) Monocytes % (Manual) Eosinophils % (Manual) Basophils % (Manual) Nucleated RBC % Seg Neutrophils # Seg Neutrophils # Man Lymphocytes # (Manual) Monocytes # (Manual) Eosinophils # (Manual) Basophils # (Manual) PT INR Fibrinogen dRVVT Confirm Interp Factor V Activity POC ABG pH POC ABG pCO2 POC ABG pO2 ABG pO2 ABG HCO3 ABG Base Excess ABG Hemoglobin Oxyhemoglobin Sodium Potassium Chloride Carbon Dioxide BUN 85 H Creatinine 1.7 H Glucose 105 H POC Glucose 114 H 110 H Lactic Acid Calcium Ionized Calcium Phosphorus Magnesium 2.40 H Direct Bilirubin AST ALT Alkaline Phosphatase Lactate Dehydrogenase Troponin T C-Reactive Protein Total Protein Albumin Prealbumin Triglycerides Cholesterol LDL Cholesterol Direct HDL Cholesterol 25-OH Vitamin D Total PTH Intact Urine pH Urine WBC (Auto) Urine Creatinine Urine Total Protein Fluid Total Protein Vancomycin Trough Rheumatoid Factor Complement C4 Miscellaneous Test Crossmatch 01/29/17 01/29/17 01/30/17 18:24 23:41 05:12 WBC RBC Hgb Hct MCV MCH MCHC RDW Plt Count Lymph % (Auto) [place] % (Auto) Lymph # [place] # Baso # Seg Neutrophils % Seg Neuts % (Manual) Lymphocytes % (Manual) Monocytes % (Manual) Eosinophils % (Manual) Basophils % (Manual) Nucleated RBC % Seg Neutrophils # Seg Neutrophils # Man Lymphocytes # (Manual) Monocytes # (Manual) Eosinophils # (Manual) Basophils # (Manual) PT INR Fibrinogen dRVVT Confirm Interp Factor V Activity POC ABG pH POC ABG pCO2 POC ABG pO2 ABG pO2 ABG HCO3 ABG Base Excess ABG Hemoglobin Oxyhemoglobin Sodium Potassium Chloride Carbon Dioxide BUN Creatinine Glucose POC Glucose 109 H 134 H 109 H Lactic Acid Calcium Ionized Calcium Phosphorus Magnesium Direct Bilirubin AST ALT Alkaline Phosphatase Lactate Dehydrogenase Troponin T C-Reactive Protein Total Protein Albumin Prealbumin Triglycerides Cholesterol LDL Cholesterol Direct HDL Cholesterol 25-OH Vitamin D Total PTH Intact Urine pH Urine WBC (Auto) Urine Creatinine Urine Total Protein Fluid Total Protein Vancomycin Trough Rheumatoid Factor Complement C4 Miscellaneous Test Crossmatch 01/30/17 01/30/17 01/30/17 11:26 17:43 23:39 WBC RBC Hgb Hct MCV MCH MCHC RDW Plt Count Lymph % (Auto) [place] % (Auto) Lymph # [place] # Baso # Seg Neutrophils % Seg Neuts % (Manual) Lymphocytes % (Manual) Monocytes % (Manual) Eosinophils % (Manual) Basophils % (Manual) Nucleated RBC % Seg Neutrophils # Seg Neutrophils # Man Lymphocytes # (Manual) Monocytes # (Manual) Eosinophils # (Manual) Basophils # (Manual) PT INR Fibrinogen dRVVT Confirm Interp Factor V Activity POC ABG pH POC ABG pCO2 POC ABG pO2 ABG pO2 ABG HCO3 ABG Base Excess ABG Hemoglobin Oxyhemoglobin Sodium Potassium Chloride Carbon Dioxide BUN Creatinine Glucose POC Glucose 135 H 143 H 122 H Lactic Acid Calcium Ionized Calcium Phosphorus Magnesium Direct Bilirubin AST ALT Alkaline Phosphatase Lactate Dehydrogenase Troponin T C-Reactive Protein Total Protein Albumin Prealbumin Triglycerides Cholesterol LDL Cholesterol Direct HDL Cholesterol 25-OH Vitamin D Total PTH Intact Urine pH Urine WBC (Auto) Urine Creatinine Urine Total Protein Fluid Total Protein Vancomycin Trough Rheumatoid Factor Complement C4 Miscellaneous Test Crossmatch 01/31/17 01/31/17 01/31/17 04:00 05:40 11:12 WBC RBC Hgb Hct MCV MCH MCHC RDW Plt Count Lymph % (Auto) [place] % (Auto) Lymph # [place] # Baso # Seg Neutrophils % Seg Neuts % (Manual) Lymphocytes % (Manual) Monocytes % (Manual) Eosinophils % (Manual) Basophils % (Manual) Nucleated RBC % Seg Neutrophils # Seg Neutrophils # Man Lymphocytes # (Manual) Monocytes # (Manual) Eosinophils # (Manual) Basophils # (Manual) PT INR Fibrinogen dRVVT Confirm Interp Factor V Activity POC ABG pH POC ABG pCO2 POC ABG pO2 ABG pO2 ABG HCO3 ABG Base Excess ABG Hemoglobin Oxyhemoglobin Sodium Potassium Chloride Carbon Dioxide BUN 78 H Creatinine 1.5 H Glucose 108 H POC Glucose 123 H Lactic Acid Calcium Ionized Calcium Phosphorus Magnesium Direct Bilirubin AST ALT Alkaline Phosphatase Lactate Dehydrogenase Troponin T C-Reactive Protein 8.10 H Total Protein Albumin Prealbumin Triglycerides Cholesterol LDL Cholesterol Direct HDL Cholesterol 25-OH Vitamin D Total PTH Intact Urine pH Urine WBC (Auto) Urine Creatinine Urine Total Protein Fluid Total Protein Vancomycin Trough Rheumatoid Factor Complement C4 Miscellaneous Test Crossmatch 01/31/17 01/31/17 01/31/17 11:16 17:45 17:50 WBC RBC Hgb Hct MCV MCH MCHC RDW Plt Count Lymph % (Auto) [place] % (Auto) Lymph # [place] # Baso # Seg Neutrophils % Seg Neuts % (Manual) Lymphocytes % (Manual) Monocytes % (Manual) Eosinophils % (Manual) Basophils % (Manual) Nucleated RBC % Seg Neutrophils # Seg Neutrophils # Man Lymphocytes # (Manual) Monocytes # (Manual) Eosinophils # (Manual) Basophils # (Manual) PT INR Fibrinogen dRVVT Confirm Interp Factor V Activity POC ABG pH POC ABG pCO2 POC ABG pO2 ABG pO2 ABG HCO3 ABG Base Excess ABG Hemoglobin Oxyhemoglobin Sodium Potassium Chloride Carbon Dioxide BUN Creatinine Glucose POC Glucose 119 H 111 H Lactic Acid Calcium Ionized Calcium Phosphorus Magnesium Direct Bilirubin AST ALT Alkaline Phosphatase Lactate Dehydrogenase Troponin T C-Reactive Protein Total Protein Albumin Prealbumin Triglycerides Cholesterol LDL Cholesterol Direct HDL Cholesterol 25-OH Vitamin D Total PTH Intact 6.76 L Urine pH Urine WBC (Auto) Urine Creatinine Urine Total Protein Fluid Total Protein Vancomycin Trough Rheumatoid Factor Complement C4 Miscellaneous Test Crossmatch 01/31/17 02/01/17 02/01/17 23:19 05:42 09:24 WBC RBC Hgb Hct MCV MCH MCHC RDW Plt Count Lymph % (Auto) [place] % (Auto) Lymph # [place] # Baso # Seg Neutrophils % Seg Neuts % (Manual) Lymphocytes % (Manual) Monocytes % (Manual) Eosinophils % (Manual) Basophils % (Manual) Nucleated RBC % Seg Neutrophils # Seg Neutrophils # Man Lymphocytes # (Manual) Monocytes # (Manual) Eosinophils # (Manual) Basophils # (Manual) PT INR Fibrinogen dRVVT Confirm Interp Factor V Activity POC ABG pH POC ABG pCO2 POC ABG pO2 ABG pO2 ABG HCO3 ABG Base Excess ABG Hemoglobin Oxyhemoglobin Sodium Potassium Chloride Carbon Dioxide BUN Creatinine Glucose POC Glucose 118 H 122 H Lactic Acid Calcium Ionized Calcium Phosphorus Magnesium 2.60 H Direct Bilirubin AST ALT Alkaline Phosphatase Lactate Dehydrogenase Troponin T C-Reactive Protein Total Protein Albumin Prealbumin Triglycerides Cholesterol LDL Cholesterol Direct HDL Cholesterol 25-OH Vitamin D Total PTH Intact Urine pH Urine WBC (Auto) Urine Creatinine Urine Total Protein Fluid Total Protein Vancomycin Trough Rheumatoid Factor Complement C4 Miscellaneous Test Crossmatch 02/01/17 02/01/17 02/02/17 09:24 12:15 07:40 WBC RBC Hgb Hct MCV MCH MCHC RDW Plt Count Lymph % (Auto) [place] % (Auto) Lymph # [place] # Baso # Seg Neutrophils % Seg Neuts % (Manual) Lymphocytes % (Manual) Monocytes % (Manual) Eosinophils % (Manual) Basophils % (Manual) Nucleated RBC % Seg Neutrophils # Seg Neutrophils # Man Lymphocytes # (Manual) Monocytes # (Manual) Eosinophils # (Manual) Basophils # (Manual) PT INR Fibrinogen dRVVT Confirm Interp Factor V Activity POC ABG pH POC ABG pCO2 POC ABG pO2 ABG pO2 ABG HCO3 ABG Base Excess ABG Hemoglobin Oxyhemoglobin Sodium Potassium Chloride Carbon Dioxide BUN 102 H 72 H Creatinine 1.9 H 1.5 H Glucose 120 H POC Glucose 156 H Lactic Acid Calcium Ionized Calcium Phosphorus Magnesium Direct Bilirubin AST ALT Alkaline Phosphatase Lactate Dehydrogenase Troponin T C-Reactive Protein Total Protein Albumin Prealbumin Triglycerides Cholesterol LDL Cholesterol Direct HDL Cholesterol 25-OH Vitamin D Total PTH Intact Urine pH Urine WBC (Auto) Urine Creatinine Urine Total Protein Fluid Total Protein Vancomycin Trough Rheumatoid Factor Complement C4 Miscellaneous Test Crossmatch 02/02/17 02/02/17 02/03/17 10:16 12:11 00:08 WBC 12.0 H RBC 3.08 L Hgb 8.3 L Hct 25.6 L MCV MCH 27 L MCHC RDW 18.2 H Plt Count Lymph % (Auto) [place] % (Auto) Lymph # [place] # Baso # Seg Neutrophils % 78.4 H Seg Neuts % (Manual) Lymphocytes % (Manual) Monocytes % (Manual) Eosinophils % (Manual) Basophils % (Manual) Nucleated RBC % Seg Neutrophils # 9.4 H Seg Neutrophils # Man Lymphocytes # (Manual) Monocytes # (Manual) Eosinophils # (Manual) Basophils # (Manual) PT INR Fibrinogen dRVVT Confirm Interp Factor V Activity POC ABG pH POC ABG pCO2 POC ABG pO2 ABG pO2 ABG HCO3 ABG Base Excess ABG Hemoglobin Oxyhemoglobin Sodium Potassium Chloride Carbon Dioxide BUN Creatinine Glucose POC Glucose 110 H 120 H Lactic Acid Calcium Ionized Calcium Phosphorus Magnesium Direct Bilirubin AST ALT Alkaline Phosphatase Lactate Dehydrogenase Troponin T C-Reactive Protein Total Protein Albumin Prealbumin Triglycerides Cholesterol LDL Cholesterol Direct HDL Cholesterol 25-OH Vitamin D Total PTH Intact Urine pH Urine WBC (Auto) Urine Creatinine Urine Total Protein Fluid Total Protein Vancomycin Trough Rheumatoid Factor Complement C4 Miscellaneous Test Crossmatch 02/03/17 02/03/17 02/03/17 05:41 07:38 11:31 WBC RBC Hgb Hct MCV MCH MCHC RDW Plt Count Lymph % (Auto) [place] % (Auto) Lymph # [place] # Baso # Seg Neutrophils % Seg Neuts % (Manual) Lymphocytes % (Manual) Monocytes % (Manual) Eosinophils % (Manual) Basophils % (Manual) Nucleated RBC % Seg Neutrophils # Seg Neutrophils # Man Lymphocytes # (Manual) Monocytes # (Manual) Eosinophils # (Manual) Basophils # (Manual) PT INR Fibrinogen dRVVT Confirm Interp Factor V Activity POC ABG pH POC ABG pCO2 POC ABG pO2 ABG pO2 ABG HCO3 ABG Base Excess ABG Hemoglobin Oxyhemoglobin Sodium 134 L Potassium Chloride Carbon Dioxide 21 L BUN 91 H Creatinine 1.9 H Glucose 110 H POC Glucose 119 H 119 H Lactic Acid Calcium 10.3 H Ionized Calcium Phosphorus Magnesium Direct Bilirubin AST ALT Alkaline Phosphatase Lactate Dehydrogenase Troponin T C-Reactive Protein Total Protein Albumin Prealbumin Triglycerides Cholesterol LDL Cholesterol Direct HDL Cholesterol 25-OH Vitamin D Total PTH Intact Urine pH Urine WBC (Auto) Urine Creatinine Urine Total Protein Fluid Total Protein Vancomycin Trough Rheumatoid Factor Complement C4 Miscellaneous Test Crossmatch 02/03/17 02/04/17 02/04/17 17:13 04:00 05:18 WBC RBC Hgb Hct MCV MCH MCHC RDW Plt Count Lymph % (Auto) [place] % (Auto) Lymph # [place] # Baso # Seg Neutrophils % Seg Neuts % (Manual) Lymphocytes % (Manual) Monocytes % (Manual) Eosinophils % (Manual) Basophils % (Manual) Nucleated RBC % Seg Neutrophils # Seg Neutrophils # Man Lymphocytes # (Manual) Monocytes # (Manual) Eosinophils # (Manual) Basophils # (Manual) PT INR Fibrinogen dRVVT Confirm Interp Factor V Activity POC ABG pH POC ABG pCO2 POC ABG pO2 ABG pO2 ABG HCO3 ABG Base Excess ABG Hemoglobin Oxyhemoglobin Sodium 136 L Potassium Chloride Carbon Dioxide BUN 58 H Creatinine 1.3 H Glucose 103 H POC Glucose 133 H 132 H Lactic Acid Calcium Ionized Calcium Phosphorus 2.00 L D Magnesium 1.60 L Direct Bilirubin AST ALT Alkaline Phosphatase Lactate Dehydrogenase Troponin T C-Reactive Protein Total Protein Albumin Prealbumin Triglycerides Cholesterol LDL Cholesterol Direct HDL Cholesterol 25-OH Vitamin D Total PTH Intact Urine pH Urine WBC (Auto) Urine Creatinine Urine Total Protein Fluid Total Protein Vancomycin Trough Rheumatoid Factor Complement C4 Miscellaneous Test Crossmatch 02/05/17 02/05/17 02/05/17 00:01 04:00 06:42 WBC RBC Hgb Hct MCV MCH MCHC RDW Plt Count Lymph % (Auto) [place] % (Auto) Lymph # [place] # Baso # Seg Neutrophils % Seg Neuts % (Manual) Lymphocytes % (Manual) Monocytes % (Manual) Eosinophils % (Manual) Basophils % (Manual) Nucleated RBC % Seg Neutrophils # Seg Neutrophils # Man Lymphocytes # (Manual) Monocytes # (Manual) Eosinophils # (Manual) Basophils # (Manual) PT INR Fibrinogen dRVVT Confirm Interp Factor V Activity POC ABG pH POC ABG pCO2 POC ABG pO2 ABG pO2 ABG HCO3 ABG Base Excess ABG Hemoglobin Oxyhemoglobin Sodium Potassium Chloride Carbon Dioxide BUN 83 H Creatinine 1.8 H Glucose POC Glucose 119 H 110 H Lactic Acid Calcium 10.7 H Ionized Calcium Phosphorus Magnesium Direct Bilirubin AST ALT Alkaline Phosphatase Lactate Dehydrogenase Troponin T C-Reactive Protein Total Protein Albumin Prealbumin Triglycerides Cholesterol LDL Cholesterol Direct HDL Cholesterol 25-OH Vitamin D Total PTH Intact Urine pH Urine WBC (Auto) Urine Creatinine Urine Total Protein Fluid Total Protein Vancomycin Trough Rheumatoid Factor Complement C4 Miscellaneous Test Crossmatch 02/05/17 02/05/17 02/05/17 09:59 11:47 23:44 WBC RBC 2.69 L Hgb 7.2 L Hct 22.5 L MCV MCH 27 L MCHC RDW 18.6 H Plt Count Lymph % (Auto) [place] % (Auto) 9.2 H Lymph # [place] # 0.9 H Baso # Seg Neutrophils % Seg Neuts % (Manual) Lymphocytes % (Manual) Monocytes % (Manual) Eosinophils % (Manual) Basophils % (Manual) Nucleated RBC % Seg Neutrophils # Seg Neutrophils # Man Lymphocytes # (Manual) Monocytes # (Manual) Eosinophils # (Manual) Basophils # (Manual) PT INR Fibrinogen dRVVT Confirm Interp Factor V Activity POC ABG pH POC ABG pCO2 POC ABG pO2 ABG pO2 ABG HCO3 ABG Base Excess ABG Hemoglobin Oxyhemoglobin Sodium Potassium Chloride Carbon Dioxide BUN Creatinine Glucose POC Glucose 130 H 123 H Lactic Acid Calcium Ionized Calcium Phosphorus Magnesium Direct Bilirubin AST ALT Alkaline Phosphatase Lactate Dehydrogenase Troponin T C-Reactive Protein Total Protein Albumin Prealbumin Triglycerides Cholesterol LDL Cholesterol Direct HDL Cholesterol 25-OH Vitamin D Total PTH Intact Urine pH Urine WBC (Auto) Urine Creatinine Urine Total Protein Fluid Total Protein Vancomycin Trough Rheumatoid Factor Complement C4 Miscellaneous Test Crossmatch 02/06/17 02/06/17 02/06/17 04:45 05:58 12:01 WBC RBC Hgb Hct MCV MCH MCHC RDW Plt Count Lymph % (Auto) [place] % (Auto) Lymph # [place] # Baso # Seg Neutrophils % Seg Neuts % (Manual) Lymphocytes % (Manual) Monocytes % (Manual) Eosinophils % (Manual) Basophils % (Manual) Nucleated RBC % Seg Neutrophils # Seg Neutrophils # Man Lymphocytes # (Manual) Monocytes # (Manual) Eosinophils # (Manual) Basophils # (Manual) PT INR Fibrinogen dRVVT Confirm Interp Factor V Activity POC ABG pH POC ABG pCO2 POC ABG pO2 ABG pO2 ABG HCO3 ABG Base Excess ABG Hemoglobin Oxyhemoglobin Sodium Potassium Chloride Carbon Dioxide BUN 101 H Creatinine 2.0 H Glucose 102 H POC Glucose 115 H 132 H Lactic Acid Calcium 10.6 H Ionized Calcium Phosphorus Magnesium Direct Bilirubin AST ALT Alkaline Phosphatase 199 H Lactate Dehydrogenase Troponin T C-Reactive Protein Total Protein Albumin 1.4 L Prealbumin Triglycerides Cholesterol LDL Cholesterol Direct HDL Cholesterol 25-OH Vitamin D Total PTH Intact Urine pH Urine WBC (Auto) Urine Creatinine Urine Total Protein Fluid Total Protein Vancomycin Trough Rheumatoid Factor Complement C4 Miscellaneous Test Crossmatch 02/06/17 02/06/17 02/07/17 17:41 23:32 05:04 WBC RBC Hgb Hct MCV MCH MCHC RDW Plt Count Lymph % (Auto) [place] % (Auto) Lymph # [place] # Baso # Seg Neutrophils % Seg Neuts % (Manual) Lymphocytes % (Manual) Monocytes % (Manual) Eosinophils % (Manual) Basophils % (Manual) Nucleated RBC % Seg Neutrophils # Seg Neutrophils # Man Lymphocytes # (Manual) Monocytes # (Manual) Eosinophils # (Manual) Basophils # (Manual) PT INR Fibrinogen dRVVT Confirm Interp Factor V Activity POC ABG pH POC ABG pCO2 POC ABG pO2 ABG pO2 ABG HCO3 ABG Base Excess ABG Hemoglobin Oxyhemoglobin Sodium Potassium Chloride Carbon Dioxide BUN Creatinine Glucose POC Glucose 134 H 128 H 119 H Lactic Acid Calcium Ionized Calcium Phosphorus Magnesium Direct Bilirubin AST ALT Alkaline Phosphatase Lactate Dehydrogenase Troponin T C-Reactive Protein Total Protein Albumin Prealbumin Triglycerides Cholesterol LDL Cholesterol Direct HDL Cholesterol 25-OH Vitamin D Total PTH Intact Urine pH Urine WBC (Auto) Urine Creatinine Urine Total Protein Fluid Total Protein Vancomycin Trough Rheumatoid Factor Complement C4 Miscellaneous Test Crossmatch 02/07/17 02/07/17 02/07/17 06:30 11:20 17:13 WBC RBC Hgb Hct MCV MCH MCHC RDW Plt Count Lymph % (Auto) [place] % (Auto) Lymph # [place] # Baso # Seg Neutrophils % Seg Neuts % (Manual) Lymphocytes % (Manual) Monocytes % (Manual) Eosinophils % (Manual) Basophils % (Manual) Nucleated RBC % Seg Neutrophils # Seg Neutrophils # Man Lymphocytes # (Manual) Monocytes # (Manual) Eosinophils # (Manual) Basophils # (Manual) PT INR Fibrinogen dRVVT Confirm Interp Factor V Activity POC ABG pH POC ABG pCO2 POC ABG pO2 ABG pO2 ABG HCO3 ABG Base Excess ABG Hemoglobin Oxyhemoglobin Sodium Potassium 3.4 L Chloride Carbon Dioxide BUN 69 H Creatinine 1.5 H Glucose 105 H POC Glucose 117 H 110 H Lactic Acid Calcium Ionized Calcium Phosphorus Magnesium 1.50 L Direct Bilirubin AST ALT Alkaline Phosphatase Lactate Dehydrogenase Troponin T C-Reactive Protein Total Protein Albumin Prealbumin Triglycerides Cholesterol LDL Cholesterol Direct HDL Cholesterol 25-OH Vitamin D Total PTH Intact Urine pH Urine WBC (Auto) Urine Creatinine Urine Total Protein Fluid Total Protein Vancomycin Trough Rheumatoid Factor Complement C4 Miscellaneous Test Crossmatch 02/07/17 02/08/17 02/08/17 20:47 04:00 11:43 WBC RBC Hgb Hct MCV MCH MCHC RDW Plt Count Lymph % (Auto) [place] % (Auto) Lymph # [place] # Baso # Seg Neutrophils % Seg Neuts % (Manual) Lymphocytes % (Manual) Monocytes % (Manual) Eosinophils % (Manual) Basophils % (Manual) Nucleated RBC % Seg Neutrophils # Seg Neutrophils # Man Lymphocytes # (Manual) Monocytes # (Manual) Eosinophils # (Manual) Basophils # (Manual) PT INR Fibrinogen dRVVT Confirm Interp Factor V Activity POC ABG pH POC ABG pCO2 POC ABG pO2 ABG pO2 ABG HCO3 ABG Base Excess ABG Hemoglobin Oxyhemoglobin Sodium Potassium Chloride Carbon Dioxide BUN 86 H Creatinine 1.7 H Glucose POC Glucose 115 H 122 H Lactic Acid Calcium Ionized Calcium Phosphorus Magnesium 1.60 L Direct Bilirubin AST ALT Alkaline Phosphatase Lactate Dehydrogenase Troponin T C-Reactive Protein Total Protein Albumin Prealbumin Triglycerides Cholesterol LDL Cholesterol Direct HDL Cholesterol 25-OH Vitamin D Total PTH Intact Urine pH Urine WBC (Auto) Urine Creatinine Urine Total Protein Fluid Total Protein Vancomycin Trough Rheumatoid Factor Complement C4 Miscellaneous Test Crossmatch 02/08/17 02/09/17 02/09/17 17:36 05:44 11:30 WBC RBC Hgb Hct MCV MCH MCHC RDW Plt Count Lymph % (Auto) [place] % (Auto) Lymph # [place] # Baso # Seg Neutrophils % Seg Neuts % (Manual) Lymphocytes % (Manual) Monocytes % (Manual) Eosinophils % (Manual) Basophils % (Manual) Nucleated RBC % Seg Neutrophils # Seg Neutrophils # Man Lymphocytes # (Manual) Monocytes # (Manual) Eosinophils # (Manual) Basophils # (Manual) PT INR Fibrinogen dRVVT Confirm Interp Factor V Activity POC ABG pH POC ABG pCO2 POC ABG pO2 ABG pO2 ABG HCO3 ABG Base Excess ABG Hemoglobin Oxyhemoglobin Sodium Potassium Chloride Carbon Dioxide BUN Creatinine Glucose POC Glucose 125 H 117 H 120 H Lactic Acid Calcium Ionized Calcium Phosphorus Magnesium Direct Bilirubin AST ALT Alkaline Phosphatase Lactate Dehydrogenase Troponin T C-Reactive Protein Total Protein Albumin Prealbumin Triglycerides Cholesterol LDL Cholesterol Direct HDL Cholesterol 25-OH Vitamin D Total PTH Intact Urine pH Urine WBC (Auto) Urine Creatinine Urine Total Protein Fluid Total Protein Vancomycin Trough Rheumatoid Factor Complement C4 Miscellaneous Test Crossmatch 02/09/17 02/10/17 02/10/17 23:45 05:45 05:50 WBC RBC Hgb Hct MCV MCH MCHC RDW Plt Count Lymph % (Auto) [place] % (Auto) Lymph # [place] # Baso # Seg Neutrophils % Seg Neuts % (Manual) Lymphocytes % (Manual) Monocytes % (Manual) Eosinophils % (Manual) Basophils % (Manual) Nucleated RBC % Seg Neutrophils # Seg Neutrophils # Man Lymphocytes # (Manual) Monocytes # (Manual) Eosinophils # (Manual) Basophils # (Manual) PT INR Fibrinogen dRVVT Confirm Interp Factor V Activity POC ABG pH POC ABG pCO2 POC ABG pO2 ABG pO2 ABG HCO3 ABG Base Excess ABG Hemoglobin Oxyhemoglobin Sodium Potassium Chloride Carbon Dioxide BUN 85 H Creatinine 1.8 H Glucose 109 H POC Glucose 114 H 189 H Lactic Acid Calcium Ionized Calcium Phosphorus Magnesium 2.50 H Direct Bilirubin AST ALT Alkaline Phosphatase Lactate Dehydrogenase Troponin T C-Reactive Protein Total Protein Albumin Prealbumin Triglycerides Cholesterol LDL Cholesterol Direct HDL Cholesterol 25-OH Vitamin D Total PTH Intact Urine pH Urine WBC (Auto) Urine Creatinine Urine Total Protein Fluid Total Protein Vancomycin Trough Rheumatoid Factor Complement C4 Miscellaneous Test Crossmatch 02/10/17 02/10/17 02/10/17 05:51 11:55 17:42 WBC RBC Hgb Hct MCV MCH MCHC RDW Plt Count Lymph % (Auto) [place] % (Auto) Lymph # [place] # Baso # Seg Neutrophils % Seg Neuts % (Manual) Lymphocytes % (Manual) Monocytes % (Manual) Eosinophils % (Manual) Basophils % (Manual) Nucleated RBC % Seg Neutrophils # Seg Neutrophils # Man Lymphocytes # (Manual) Monocytes # (Manual) Eosinophils # (Manual) Basophils # (Manual) PT INR Fibrinogen dRVVT Confirm Interp Factor V Activity POC ABG pH POC ABG pCO2 POC ABG pO2 ABG pO2 ABG HCO3 ABG Base Excess ABG Hemoglobin Oxyhemoglobin Sodium Potassium Chloride Carbon Dioxide BUN Creatinine Glucose POC Glucose 106 H 146 H 132 H Lactic Acid Calcium Ionized Calcium Phosphorus Magnesium Direct Bilirubin AST ALT Alkaline Phosphatase Lactate Dehydrogenase Troponin T C-Reactive Protein Total Protein Albumin Prealbumin Triglycerides Cholesterol LDL Cholesterol Direct HDL Cholesterol 25-OH Vitamin D Total PTH Intact Urine pH Urine WBC (Auto) Urine Creatinine Urine Total Protein Fluid Total Protein Vancomycin Trough Rheumatoid Factor Complement C4 Miscellaneous Test Crossmatch 02/10/17 02/11/17 02/11/17 23:43 04:08 05:34 WBC RBC Hgb Hct MCV MCH MCHC RDW Plt Count Lymph % (Auto) [place] % (Auto) Lymph # [place] # Baso # Seg Neutrophils % Seg Neuts % (Manual) Lymphocytes % (Manual) Monocytes % (Manual) Eosinophils % (Manual) Basophils % (Manual) Nucleated RBC % Seg Neutrophils # Seg Neutrophils # Man Lymphocytes # (Manual) Monocytes # (Manual) Eosinophils # (Manual) Basophils # (Manual) PT INR Fibrinogen dRVVT Confirm Interp Factor V Activity POC ABG pH POC ABG pCO2 POC ABG pO2 ABG pO2 ABG HCO3 ABG Base Excess ABG Hemoglobin Oxyhemoglobin Sodium 136 L Potassium Chloride Carbon Dioxide BUN 65 H Creatinine 1.7 H Glucose 105 H POC Glucose 130 H 113 H Lactic Acid Calcium Ionized Calcium Phosphorus Magnesium Direct Bilirubin AST ALT Alkaline Phosphatase Lactate Dehydrogenase Troponin T C-Reactive Protein Total Protein Albumin Prealbumin Triglycerides Cholesterol LDL Cholesterol Direct HDL Cholesterol 25-OH Vitamin D Total PTH Intact Urine pH Urine WBC (Auto) Urine Creatinine Urine Total Protein Fluid Total Protein Vancomycin Trough Rheumatoid Factor Complement C4 Miscellaneous Test Crossmatch 02/11/17 02/11/17 02/12/17 11:56 23:18 06:19 WBC RBC Hgb Hct MCV MCH MCHC RDW Plt Count Lymph % (Auto) [place] % (Auto) Lymph # [place] # Baso # Seg Neutrophils % Seg Neuts % (Manual) Lymphocytes % (Manual) Monocytes % (Manual) Eosinophils % (Manual) Basophils % (Manual) Nucleated RBC % Seg Neutrophils # Seg Neutrophils # Man Lymphocytes # (Manual) Monocytes # (Manual) Eosinophils # (Manual) Basophils # (Manual) PT INR Fibrinogen dRVVT Confirm Interp Factor V Activity POC ABG pH POC ABG pCO2 POC ABG pO2 ABG pO2 ABG HCO3 ABG Base Excess ABG Hemoglobin Oxyhemoglobin Sodium 136 L Potassium Chloride 97.1 L Carbon Dioxide BUN 93 H Creatinine 2.4 H Glucose POC Glucose 126 H 119 H Lactic Acid Calcium 11.0 H Ionized Calcium Phosphorus Magnesium Direct Bilirubin AST ALT Alkaline Phosphatase Lactate Dehydrogenase Troponin T C-Reactive Protein Total Protein Albumin Prealbumin Triglycerides Cholesterol LDL Cholesterol Direct HDL Cholesterol 25-OH Vitamin D Total PTH Intact Urine pH Urine WBC (Auto) Urine Creatinine Urine Total Protein Fluid Total Protein Vancomycin Trough Rheumatoid Factor Complement C4 Miscellaneous Test Crossmatch 02/12/17 02/12/17 02/12/17 08:00 10:25 11:42 WBC 15.4 H RBC 2.63 L Hgb 6.9 L Hct 22.6 L MCV MCH 26 L MCHC RDW 20.5 H Plt Count Lymph % (Auto) [place] % (Auto) Lymph # [place] # Baso # Seg Neutrophils % Seg Neuts % (Manual) Lymphocytes % (Manual) Monocytes % (Manual) Eosinophils % (Manual) Basophils % (Manual) Nucleated RBC % Seg Neutrophils # Seg Neutrophils # Man Lymphocytes # (Manual) Monocytes # (Manual) Eosinophils # (Manual) Basophils # (Manual) PT INR Fibrinogen dRVVT Confirm Interp Factor V Activity POC ABG pH POC ABG pCO2 POC ABG pO2 ABG pO2 ABG HCO3 ABG Base Excess ABG Hemoglobin Oxyhemoglobin Sodium Potassium Chloride Carbon Dioxide BUN Creatinine Glucose POC Glucose 142 H Lactic Acid Calcium Ionized Calcium Phosphorus Magnesium Direct Bilirubin AST ALT Alkaline Phosphatase Lactate Dehydrogenase Troponin T C-Reactive Protein Total Protein Albumin Prealbumin Triglycerides Cholesterol LDL Cholesterol Direct HDL Cholesterol 25-OH Vitamin D Total PTH Intact Urine pH Urine WBC (Auto) Urine Creatinine Urine Total Protein Fluid Total Protein Vancomycin Trough Rheumatoid Factor Complement C4 Miscellaneous Test Crossmatch See Detail 02/12/17 02/13/17 02/13/17 18:04 00:04 05:00 WBC RBC Hgb Hct MCV MCH MCHC RDW Plt Count Lymph % (Auto) [place] % (Auto) Lymph # [place] # Baso # Seg Neutrophils % Seg Neuts % (Manual) Lymphocytes % (Manual) Monocytes % (Manual) Eosinophils % (Manual) Basophils % (Manual) Nucleated RBC % Seg Neutrophils # Seg Neutrophils # Man Lymphocytes # (Manual) Monocytes # (Manual) Eosinophils # (Manual) Basophils # (Manual) PT INR Fibrinogen dRVVT Confirm Interp Factor V Activity POC ABG pH POC ABG pCO2 POC ABG pO2 ABG pO2 ABG HCO3 ABG Base Excess ABG Hemoglobin Oxyhemoglobin Sodium 134 L Potassium Chloride 96.1 L Carbon Dioxide 20 L BUN 125 H Creatinine 3.0 H Glucose 111 H POC Glucose 135 H 109 H Lactic Acid Calcium 11.3 H Ionized Calcium Phosphorus Magnesium Direct Bilirubin AST ALT Alkaline Phosphatase Lactate Dehydrogenase Troponin T C-Reactive Protein Total Protein Albumin Prealbumin Triglycerides Cholesterol LDL Cholesterol Direct HDL Cholesterol 25-OH Vitamin D Total PTH Intact Urine pH Urine WBC (Auto) Urine Creatinine Urine Total Protein Fluid Total Protein Vancomycin Trough Rheumatoid Factor Complement C4 Miscellaneous Test Crossmatch 02/13/17 02/13/17 02/13/17 05:00 05:28 12:03 WBC 11.9 H RBC 2.92 L Hgb 7.8 L Hct 25.2 L MCV MCH 27 L MCHC RDW 19.3 H Plt Count Lymph % (Auto) [place] % (Auto) Lymph # [place] # Baso # Seg Neutrophils % Seg Neuts % (Manual) Lymphocytes % (Manual) Monocytes % (Manual) Eosinophils % (Manual) Basophils % (Manual) Nucleated RBC % Seg Neutrophils # Seg Neutrophils # Man Lymphocytes # (Manual) Monocytes # (Manual) Eosinophils # (Manual) Basophils # (Manual) PT INR Fibrinogen dRVVT Confirm Interp Factor V Activity POC ABG pH POC ABG pCO2 POC ABG pO2 ABG pO2 ABG HCO3 ABG Base Excess ABG Hemoglobin Oxyhemoglobin Sodium Potassium Chloride Carbon Dioxide BUN Creatinine Glucose POC Glucose 124 H 160 H Lactic Acid Calcium Ionized Calcium Phosphorus Magnesium Direct Bilirubin AST ALT Alkaline Phosphatase Lactate Dehydrogenase Troponin T C-Reactive Protein Total Protein Albumin Prealbumin Triglycerides Cholesterol LDL Cholesterol Direct HDL Cholesterol 25-OH Vitamin D Total PTH Intact Urine pH Urine WBC (Auto) Urine Creatinine Urine Total Protein Fluid Total Protein Vancomycin Trough Rheumatoid Factor Complement C4 Miscellaneous Test Crossmatch 02/13/17 02/14/17 02/14/17 18:09 06:16 08:08 WBC 15.2 H RBC 2.97 L Hgb 8.1 L Hct 26.3 L MCV MCH MCHC RDW 19.3 H Plt Count Lymph % (Auto) [place] % (Auto) Lymph # [place] # Baso # Seg Neutrophils % Seg Neuts % (Manual) Lymphocytes % (Manual) Monocytes % (Manual) Eosinophils % (Manual) Basophils % (Manual) Nucleated RBC % Seg Neutrophils # Seg Neutrophils # Man Lymphocytes # (Manual) Monocytes # (Manual) Eosinophils # (Manual) Basophils # (Manual) PT INR Fibrinogen dRVVT Confirm Interp Factor V Activity POC ABG pH POC ABG pCO2 POC ABG pO2 ABG pO2 ABG HCO3 ABG Base Excess ABG Hemoglobin Oxyhemoglobin Sodium Potassium Chloride Carbon Dioxide BUN Creatinine Glucose POC Glucose 110 H 112 H Lactic Acid Calcium Ionized Calcium Phosphorus Magnesium Direct Bilirubin AST ALT Alkaline Phosphatase Lactate Dehydrogenase Troponin T C-Reactive Protein Total Protein Albumin Prealbumin Triglycerides Cholesterol LDL Cholesterol Direct HDL Cholesterol 25-OH Vitamin D Total PTH Intact Urine pH Urine WBC (Auto) Urine Creatinine Urine Total Protein Fluid Total Protein Vancomycin Trough Rheumatoid Factor Complement C4 Miscellaneous Test Crossmatch 02/14/17 02/14/17 02/15/17 08:08 17:41 04:15 WBC RBC Hgb Hct MCV MCH MCHC RDW Plt Count Lymph % (Auto) [place] % (Auto) Lymph # [place] # Baso # Seg Neutrophils % Seg Neuts % (Manual) Lymphocytes % (Manual) Monocytes % (Manual) Eosinophils % (Manual) Basophils % (Manual) Nucleated RBC % Seg Neutrophils # Seg Neutrophils # Man Lymphocytes # (Manual) Monocytes # (Manual) Eosinophils # (Manual) Basophils # (Manual) PT INR Fibrinogen dRVVT Confirm Interp Factor V Activity POC ABG pH POC ABG pCO2 POC ABG pO2 ABG pO2 ABG HCO3 ABG Base Excess ABG Hemoglobin Oxyhemoglobin Sodium Potassium Chloride Carbon Dioxide 18 L 21 L BUN 79 H 113 H Creatinine 2.1 H 2.8 H Glucose POC Glucose 118 H Lactic Acid Calcium 10.7 H Ionized Calcium Phosphorus 1.70 L D Magnesium 1.60 L Direct Bilirubin AST ALT Alkaline Phosphatase Lactate Dehydrogenase Troponin T C-Reactive Protein Total Protein Albumin Prealbumin Triglycerides Cholesterol LDL Cholesterol Direct HDL Cholesterol 25-OH Vitamin D Total PTH Intact Urine pH Urine WBC (Auto) Urine Creatinine Urine Total Protein Fluid Total Protein Vancomycin Trough Rheumatoid Factor Complement C4 Miscellaneous Test Crossmatch 02/15/17 02/15/17 02/15/17 06:06 11:31 17:52 WBC RBC Hgb Hct MCV MCH MCHC RDW Plt Count Lymph % (Auto) [place] % (Auto) Lymph # [place] # Baso # Seg Neutrophils % Seg Neuts % (Manual) Lymphocytes % (Manual) Monocytes % (Manual) Eosinophils % (Manual) Basophils % (Manual) Nucleated RBC % Seg Neutrophils # Seg Neutrophils # Man Lymphocytes # (Manual) Monocytes # (Manual) Eosinophils # (Manual) Basophils # (Manual) PT INR Fibrinogen dRVVT Confirm Interp Factor V Activity POC ABG pH POC ABG pCO2 POC ABG pO2 ABG pO2 ABG HCO3 ABG Base Excess ABG Hemoglobin Oxyhemoglobin Sodium Potassium Chloride Carbon Dioxide BUN Creatinine Glucose POC Glucose 115 H 129 H 201 H Lactic Acid Calcium Ionized Calcium Phosphorus Magnesium Direct Bilirubin AST ALT Alkaline Phosphatase Lactate Dehydrogenase Troponin T C-Reactive Protein Total Protein Albumin Prealbumin Triglycerides Cholesterol LDL Cholesterol Direct HDL Cholesterol 25-OH Vitamin D Total PTH Intact Urine pH Urine WBC (Auto) Urine Creatinine Urine Total Protein Fluid Total Protein Vancomycin Trough Rheumatoid Factor Complement C4 Miscellaneous Test Crossmatch 02/15/17 02/15/17 02/15/17 19:08 19:08 19:08 WBC RBC Hgb Hct MCV MCH MCHC RDW Plt Count Lymph % (Auto) [place] % (Auto) Lymph # [place] # Baso # Seg Neutrophils % Seg Neuts % (Manual) Lymphocytes % (Manual) Monocytes % (Manual) Eosinophils % (Manual) Basophils % (Manual) Nucleated RBC % Seg Neutrophils # Seg Neutrophils # Man Lymphocytes # (Manual) Monocytes # (Manual) Eosinophils # (Manual) Basophils # (Manual) PT INR Fibrinogen dRVVT Confirm Interp Factor V Activity POC ABG pH POC ABG pCO2 POC ABG pO2 ABG pO2 ABG HCO3 ABG Base Excess ABG Hemoglobin Oxyhemoglobin Sodium Potassium Chloride Carbon Dioxide BUN Creatinine Glucose POC Glucose Lactic Acid Calcium Ionized Calcium 6.0 H Phosphorus Magnesium Direct Bilirubin AST ALT Alkaline Phosphatase Lactate Dehydrogenase Troponin T C-Reactive Protein Total Protein Albumin Prealbumin Triglycerides Cholesterol LDL Cholesterol Direct HDL Cholesterol 25-OH Vitamin D Total 13 L PTH Intact 10.88 L Urine pH Urine WBC (Auto) Urine Creatinine Urine Total Protein Fluid Total Protein Vancomycin Trough Rheumatoid Factor Complement C4 Miscellaneous Test Crossmatch 02/16/17 02/16/17 02/16/17 05:12 06:00 12:39 WBC RBC Hgb Hct MCV MCH MCHC RDW Plt Count Lymph % (Auto) [place] % (Auto) Lymph # [place] # Baso # Seg Neutrophils % Seg Neuts % (Manual) Lymphocytes % (Manual) Monocytes % (Manual) Eosinophils % (Manual) Basophils % (Manual) Nucleated RBC % Seg Neutrophils # Seg Neutrophils # Man Lymphocytes # (Manual) Monocytes # (Manual) Eosinophils # (Manual) Basophils # (Manual) PT INR Fibrinogen dRVVT Confirm Interp Factor V Activity POC ABG pH POC ABG pCO2 POC ABG pO2 ABG pO2 ABG HCO3 ABG Base Excess ABG Hemoglobin Oxyhemoglobin Sodium Potassium Chloride Carbon Dioxide BUN 74 H Creatinine 1.7 H Glucose 102 H POC Glucose 125 H 109 H Lactic Acid Calcium Ionized Calcium Phosphorus 2.10 L D Magnesium Direct Bilirubin AST ALT Alkaline Phosphatase Lactate Dehydrogenase Troponin T C-Reactive Protein Total Protein Albumin Prealbumin Triglycerides Cholesterol LDL Cholesterol Direct HDL Cholesterol 25-OH Vitamin D Total PTH Intact Urine pH Urine WBC (Auto) Urine Creatinine Urine Total Protein Fluid Total Protein Vancomycin Trough Rheumatoid Factor Complement C4 Miscellaneous Test Crossmatch 02/16/17 02/16/17 02/17/17 17:31 23:57 05:30 WBC RBC Hgb Hct MCV MCH MCHC RDW Plt Count Lymph % (Auto) [place] % (Auto) Lymph # [place] # Baso # Seg Neutrophils % Seg Neuts % (Manual) Lymphocytes % (Manual) Monocytes % (Manual) Eosinophils % (Manual) Basophils % (Manual) Nucleated RBC % Seg Neutrophils # Seg Neutrophils # Man Lymphocytes # (Manual) Monocytes # (Manual) Eosinophils # (Manual) Basophils # (Manual) PT INR Fibrinogen dRVVT Confirm Interp Factor V Activity POC ABG pH POC ABG pCO2 POC ABG pO2 ABG pO2 ABG HCO3 ABG Base Excess ABG Hemoglobin Oxyhemoglobin Sodium Potassium Chloride Carbon Dioxide BUN Creatinine Glucose POC Glucose 106 H 127 H 122 H Lactic Acid Calcium Ionized Calcium Phosphorus Magnesium Direct Bilirubin AST ALT Alkaline Phosphatase Lactate Dehydrogenase Troponin T C-Reactive Protein Total Protein Albumin Prealbumin Triglycerides Cholesterol LDL Cholesterol Direct HDL Cholesterol 25-OH Vitamin D Total PTH Intact Urine pH Urine WBC (Auto) Urine Creatinine Urine Total Protein Fluid Total Protein Vancomycin Trough Rheumatoid Factor Complement C4 Miscellaneous Test Crossmatch 02/17/17 02/17/17 02/17/17 06:00 12:17 17:57 WBC RBC Hgb Hct MCV MCH MCHC RDW Plt Count Lymph % (Auto) [place] % (Auto) Lymph # [place] # Baso # Seg Neutrophils % Seg Neuts % (Manual) Lymphocytes % (Manual) Monocytes % (Manual) Eosinophils % (Manual) Basophils % (Manual) Nucleated RBC % Seg Neutrophils # Seg Neutrophils # Man Lymphocytes # (Manual) Monocytes # (Manual) Eosinophils # (Manual) Basophils # (Manual) PT INR Fibrinogen dRVVT Confirm Interp Factor V Activity POC ABG pH POC ABG pCO2 POC ABG pO2 ABG pO2 ABG HCO3 ABG Base Excess ABG Hemoglobin Oxyhemoglobin Sodium Potassium Chloride Carbon Dioxide BUN 94 H Creatinine 2.3 H Glucose 106 H POC Glucose 173 H 140 H Lactic Acid Calcium Ionized Calcium Phosphorus Magnesium Direct Bilirubin AST ALT Alkaline Phosphatase Lactate Dehydrogenase Troponin T C-Reactive Protein Total Protein Albumin Prealbumin Triglycerides Cholesterol LDL Cholesterol Direct HDL Cholesterol 25-OH Vitamin D Total PTH Intact Urine pH Urine WBC (Auto) Urine Creatinine Urine Total Protein Fluid Total Protein Vancomycin Trough Rheumatoid Factor Complement C4 Miscellaneous Test Crossmatch 02/18/17 02/18/17 02/18/17 00:20 05:30 06:14 WBC RBC Hgb Hct MCV MCH MCHC RDW Plt Count Lymph % (Auto) [place] % (Auto) Lymph # [place] # Baso # Seg Neutrophils % Seg Neuts % (Manual) Lymphocytes % (Manual) Monocytes % (Manual) Eosinophils % (Manual) Basophils % (Manual) Nucleated RBC % Seg Neutrophils # Seg Neutrophils # Man Lymphocytes # (Manual) Monocytes # (Manual) Eosinophils # (Manual) Basophils # (Manual) PT INR Fibrinogen dRVVT Confirm Interp Factor V Activity POC ABG pH POC ABG pCO2 POC ABG pO2 ABG pO2 ABG HCO3 ABG Base Excess ABG Hemoglobin Oxyhemoglobin Sodium 136 L Potassium Chloride 97.5 L Carbon Dioxide BUN 73 H Creatinine 1.9 H Glucose POC Glucose 132 H 106 H Lactic Acid Calcium Ionized Calcium Phosphorus Magnesium Direct Bilirubin AST ALT Alkaline Phosphatase Lactate Dehydrogenase Troponin T C-Reactive Protein Total Protein Albumin Prealbumin Triglycerides Cholesterol LDL Cholesterol Direct HDL Cholesterol 25-OH Vitamin D Total PTH Intact Urine pH Urine WBC (Auto) Urine Creatinine Urine Total Protein Fluid Total Protein Vancomycin Trough Rheumatoid Factor Complement C4 Miscellaneous Test Crossmatch 02/18/17 02/18/17 02/18/17 09:51 11:32 17:59 WBC 13.1 H RBC 2.77 L Hgb 7.6 L Hct 23.9 L MCV MCH MCHC RDW 19.0 H Plt Count Lymph % (Auto) [place] % (Auto) 11.1 H Lymph # [place] # 1.5 H Baso # Seg Neutrophils % Seg Neuts % (Manual) Lymphocytes % (Manual) Monocytes % (Manual) Eosinophils % (Manual) Basophils % (Manual) Nucleated RBC % Seg Neutrophils # 9.1 H Seg Neutrophils # Man Lymphocytes # (Manual) Monocytes # (Manual) Eosinophils # (Manual) Basophils # (Manual) PT INR Fibrinogen dRVVT Confirm Interp Factor V Activity POC ABG pH POC ABG pCO2 POC ABG pO2 ABG pO2 ABG HCO3 ABG Base Excess ABG Hemoglobin Oxyhemoglobin Sodium Potassium Chloride Carbon Dioxide BUN Creatinine Glucose POC Glucose 123 H 119 H Lactic Acid Calcium Ionized Calcium Phosphorus Magnesium Direct Bilirubin AST ALT Alkaline Phosphatase Lactate Dehydrogenase Troponin T C-Reactive Protein Total Protein Albumin Prealbumin Triglycerides Cholesterol LDL Cholesterol Direct HDL Cholesterol 25-OH Vitamin D Total PTH Intact Urine pH Urine WBC (Auto) Urine Creatinine Urine Total Protein Fluid Total Protein Vancomycin Trough Rheumatoid Factor Complement C4 Miscellaneous Test Crossmatch 02/18/17 02/19/17 02/19/17 23:47 05:36 09:45 WBC RBC Hgb Hct MCV MCH 27 L MCHC RDW 19.2 H Plt Count Lymph % (Auto) [place] % (Auto) Lymph # [place] # Baso # Seg Neutrophils % Seg Neuts % (Manual) Lymphocytes % (Manual) Monocytes % (Manual) Eosinophils % (Manual) Basophils % (Manual) Nucleated RBC % Seg Neutrophils # Seg Neutrophils # Man Lymphocytes # (Manual) Monocytes # (Manual) Eosinophils # (Manual) Basophils # (Manual) PT INR Fibrinogen dRVVT Confirm Interp Factor V Activity POC ABG pH POC ABG pCO2 POC ABG pO2 ABG pO2 ABG HCO3 ABG Base Excess ABG Hemoglobin Oxyhemoglobin Sodium Potassium Chloride Carbon Dioxide BUN Creatinine Glucose POC Glucose 110 H 121 H Lactic Acid Calcium Ionized Calcium Phosphorus Magnesium Direct Bilirubin AST ALT Alkaline Phosphatase Lactate Dehydrogenase Troponin T C-Reactive Protein Total Protein Albumin Prealbumin Triglycerides Cholesterol LDL Cholesterol Direct HDL Cholesterol 25-OH Vitamin D Total PTH Intact Urine pH Urine WBC (Auto) Urine Creatinine Urine Total Protein Fluid Total Protein Vancomycin Trough Rheumatoid Factor Complement C4 Miscellaneous Test Crossmatch 02/19/17 02/20/17 02/20/17 09:45 00:10 06:15 WBC RBC Hgb Hct MCV MCH MCHC RDW Plt Count Lymph % (Auto) [place] % (Auto) Lymph # [place] # Baso # Seg Neutrophils % Seg Neuts % (Manual) Lymphocytes % (Manual) Monocytes % (Manual) Eosinophils % (Manual) Basophils % (Manual) Nucleated RBC % Seg Neutrophils # Seg Neutrophils # Man Lymphocytes # (Manual) Monocytes # (Manual) Eosinophils # (Manual) Basophils # (Manual) PT INR Fibrinogen dRVVT Confirm Interp Factor V Activity POC ABG pH POC ABG pCO2 POC ABG pO2 ABG pO2 ABG HCO3 ABG Base Excess ABG Hemoglobin Oxyhemoglobin Sodium 136 L Potassium 5.1 H Chloride 97.6 L Carbon Dioxide 20 L 18 L BUN 110 H 135 H Creatinine 2.6 H 3.2 H Glucose 106 H 110 H POC Glucose 117 H Lactic Acid Calcium Ionized Calcium Phosphorus 4.70 H D 5.60 H Magnesium Direct Bilirubin AST ALT Alkaline Phosphatase Lactate Dehydrogenase Troponin T C-Reactive Protein Total Protein Albumin Prealbumin Triglycerides Cholesterol LDL Cholesterol Direct HDL Cholesterol 25-OH Vitamin D Total PTH Intact Urine pH Urine WBC (Auto) Urine Creatinine Urine Total Protein Fluid Total Protein Vancomycin Trough Rheumatoid Factor Complement C4 Miscellaneous Test Crossmatch 02/20/17 02/20/17 02/21/17 11:30 17:51 00:14 WBC RBC Hgb Hct MCV MCH MCHC RDW Plt Count Lymph % (Auto) [place] % (Auto) Lymph # [place] # Baso # Seg Neutrophils % Seg Neuts % (Manual) Lymphocytes % (Manual) Monocytes % (Manual) Eosinophils % (Manual) Basophils % (Manual) Nucleated RBC % Seg Neutrophils # Seg Neutrophils # Man Lymphocytes # (Manual) Monocytes # (Manual) Eosinophils # (Manual) Basophils # (Manual) PT INR Fibrinogen dRVVT Confirm Interp Factor V Activity POC ABG pH POC ABG pCO2 POC ABG pO2 ABG pO2 ABG HCO3 ABG Base Excess ABG Hemoglobin Oxyhemoglobin Sodium Potassium Chloride Carbon Dioxide BUN Creatinine Glucose POC Glucose 173 H 133 H 125 H Lactic Acid Calcium Ionized Calcium Phosphorus Magnesium Direct Bilirubin AST ALT Alkaline Phosphatase Lactate Dehydrogenase Troponin T C-Reactive Protein Total Protein Albumin Prealbumin Triglycerides Cholesterol LDL Cholesterol Direct HDL Cholesterol 25-OH Vitamin D Total PTH Intact Urine pH Urine WBC (Auto) Urine Creatinine Urine Total Protein Fluid Total Protein Vancomycin Trough Rheumatoid Factor Complement C4 Miscellaneous Test Crossmatch 02/21/17 02/21/17 02/21/17 04:09 05:03 11:58 WBC RBC Hgb Hct MCV MCH MCHC RDW Plt Count Lymph % (Auto) [place] % (Auto) Lymph # [place] # Baso # Seg Neutrophils % Seg Neuts % (Manual) Lymphocytes % (Manual) Monocytes % (Manual) Eosinophils % (Manual) Basophils % (Manual) Nucleated RBC % Seg Neutrophils # Seg Neutrophils # Man Lymphocytes # (Manual) Monocytes # (Manual) Eosinophils # (Manual) Basophils # (Manual) PT INR Fibrinogen dRVVT Confirm Interp Factor V Activity POC ABG pH POC ABG pCO2 POC ABG pO2 ABG pO2 ABG HCO3 ABG Base Excess ABG Hemoglobin Oxyhemoglobin Sodium 135 L Potassium Chloride Carbon Dioxide 20 L BUN 76 H Creatinine 2.0 H Glucose 125 H POC Glucose 134 H 139 H Lactic Acid Calcium Ionized Calcium Phosphorus Magnesium Direct Bilirubin AST ALT Alkaline Phosphatase Lactate Dehydrogenase Troponin T C-Reactive Protein Total Protein Albumin Prealbumin Triglycerides Cholesterol LDL Cholesterol Direct HDL Cholesterol 25-OH Vitamin D Total PTH Intact Urine pH Urine WBC (Auto) Urine Creatinine Urine Total Protein Fluid Total Protein Vancomycin Trough Rheumatoid Factor Complement C4 Miscellaneous Test Crossmatch 02/21/17 02/21/17 02/22/17 17:16 23:41 04:10 WBC RBC Hgb Hct MCV MCH MCHC RDW Plt Count Lymph % (Auto) [place] % (Auto) Lymph # [place] # Baso # Seg Neutrophils % Seg Neuts % (Manual) Lymphocytes % (Manual) Monocytes % (Manual) Eosinophils % (Manual) Basophils % (Manual) Nucleated RBC % Seg Neutrophils # Seg Neutrophils # Man Lymphocytes # (Manual) Monocytes # (Manual) Eosinophils # (Manual) Basophils # (Manual) PT INR Fibrinogen dRVVT Confirm Interp Factor V Activity POC ABG pH POC ABG pCO2 POC ABG pO2 ABG pO2 ABG HCO3 ABG Base Excess ABG Hemoglobin Oxyhemoglobin Sodium 135 L Potassium Chloride 97.7 L Carbon Dioxide 21 L BUN 101 H Creatinine 2.5 H Glucose 116 H POC Glucose 120 H 128 H Lactic Acid Calcium Ionized Calcium Phosphorus Magnesium Direct Bilirubin AST ALT Alkaline Phosphatase Lactate Dehydrogenase Troponin T C-Reactive Protein Total Protein Albumin 1.3 L Prealbumin Triglycerides Cholesterol LDL Cholesterol Direct HDL Cholesterol 25-OH Vitamin D Total PTH Intact Urine pH Urine WBC (Auto) Urine Creatinine Urine Total Protein Fluid Total Protein Vancomycin Trough Rheumatoid Factor Complement C4 Miscellaneous Test Crossmatch 02/22/17 02/22/17 02/22/17 06:03 11:38 18:19 WBC RBC Hgb Hct MCV MCH MCHC RDW Plt Count Lymph % (Auto) [place] % (Auto) Lymph # [place] # Baso # Seg Neutrophils % Seg Neuts % (Manual) Lymphocytes % (Manual) Monocytes % (Manual) Eosinophils % (Manual) Basophils % (Manual) Nucleated RBC % Seg Neutrophils # Seg Neutrophils # Man Lymphocytes # (Manual) Monocytes # (Manual) Eosinophils # (Manual) Basophils # (Manual) PT INR Fibrinogen dRVVT Confirm Interp Factor V Activity POC ABG pH POC ABG pCO2 POC ABG pO2 ABG pO2 ABG HCO3 ABG Base Excess ABG Hemoglobin Oxyhemoglobin Sodium Potassium Chloride Carbon Dioxide BUN Creatinine Glucose POC Glucose 126 H 147 H 121 H Lactic Acid Calcium Ionized Calcium Phosphorus Magnesium Direct Bilirubin AST ALT Alkaline Phosphatase Lactate Dehydrogenase Troponin T C-Reactive Protein Total Protein Albumin Prealbumin Triglycerides Cholesterol LDL Cholesterol Direct HDL Cholesterol 25-OH Vitamin D Total PTH Intact Urine pH Urine WBC (Auto) Urine Creatinine Urine Total Protein Fluid Total Protein Vancomycin Trough Rheumatoid Factor Complement C4 Miscellaneous Test Crossmatch 02/23/17 02/23/17 02/23/17 05:00 05:46 12:27 WBC RBC Hgb Hct MCV MCH MCHC RDW Plt Count Lymph % (Auto) [place] % (Auto) Lymph # [place] # Baso # Seg Neutrophils % Seg Neuts % (Manual) Lymphocytes % (Manual) Monocytes % (Manual) Eosinophils % (Manual) Basophils % (Manual) Nucleated RBC % Seg Neutrophils # Seg Neutrophils # Man Lymphocytes # (Manual) Monocytes # (Manual) Eosinophils # (Manual) Basophils # (Manual) PT INR Fibrinogen dRVVT Confirm Interp Factor V Activity POC ABG pH POC ABG pCO2 POC ABG pO2 ABG pO2 ABG HCO3 ABG Base Excess ABG Hemoglobin Oxyhemoglobin Sodium 136 L Potassium Chloride 97.1 L Carbon Dioxide BUN 50 H Creatinine 1.5 H Glucose POC Glucose 110 H 115 H Lactic Acid Calcium 8.1 L Ionized Calcium Phosphorus 1.90 L D Magnesium Direct Bilirubin AST ALT Alkaline Phosphatase Lactate Dehydrogenase Troponin T C-Reactive Protein Total Protein Albumin Prealbumin Triglycerides Cholesterol LDL Cholesterol Direct HDL Cholesterol 25-OH Vitamin D Total PTH Intact Urine pH Urine WBC (Auto) Urine Creatinine Urine Total Protein Fluid Total Protein Vancomycin Trough Rheumatoid Factor Complement C4 Miscellaneous Test Crossmatch 02/23/17 02/23/17 02/24/17 18:02 23:18 05:04 WBC RBC Hgb Hct MCV MCH MCHC RDW Plt Count Lymph % (Auto) [place] % (Auto) Lymph # [place] # Baso # Seg Neutrophils % Seg Neuts % (Manual) Lymphocytes % (Manual) Monocytes % (Manual) Eosinophils % (Manual) Basophils % (Manual) Nucleated RBC % Seg Neutrophils # Seg Neutrophils # Man Lymphocytes # (Manual) Monocytes # (Manual) Eosinophils # (Manual) Basophils # (Manual) PT INR Fibrinogen dRVVT Confirm Interp Factor V Activity POC ABG pH POC ABG pCO2 POC ABG pO2 ABG pO2 ABG HCO3 ABG Base Excess ABG Hemoglobin Oxyhemoglobin Sodium Potassium Chloride Carbon Dioxide BUN Creatinine Glucose POC Glucose 111 H 126 H 121 H Lactic Acid Calcium Ionized Calcium Phosphorus Magnesium Direct Bilirubin AST ALT Alkaline Phosphatase Lactate Dehydrogenase Troponin T C-Reactive Protein Total Protein Albumin Prealbumin Triglycerides Cholesterol LDL Cholesterol Direct HDL Cholesterol 25-OH Vitamin D Total PTH Intact Urine pH Urine WBC (Auto) Urine Creatinine Urine Total Protein Fluid Total Protein Vancomycin Trough Rheumatoid Factor Complement C4 Miscellaneous Test Crossmatch 02/24/17 02/24/17 02/24/17 05:20 10:05 11:34 WBC RBC 2.95 L Hgb 8.4 L Hct 25.7 L MCV MCH MCHC RDW 20.8 H Plt Count Lymph % (Auto) [place] % (Auto) Lymph # [place] # Baso # Seg Neutrophils % 71.8 H Seg Neuts % (Manual) Lymphocytes % (Manual) Monocytes % (Manual) Eosinophils % (Manual) Basophils % (Manual) Nucleated RBC % Seg Neutrophils # Seg Neutrophils # Man Lymphocytes # (Manual) Monocytes # (Manual) Eosinophils # (Manual) Basophils # (Manual) PT INR Fibrinogen dRVVT Confirm Interp Factor V Activity POC ABG pH POC ABG pCO2 POC ABG pO2 ABG pO2 ABG HCO3 ABG Base Excess ABG Hemoglobin Oxyhemoglobin Sodium 136 L Potassium Chloride 95.5 L Carbon Dioxide BUN 76 H Creatinine 2.2 H Glucose 109 H POC Glucose 123 H Lactic Acid Calcium Ionized Calcium Phosphorus Magnesium Direct Bilirubin AST ALT Alkaline Phosphatase Lactate Dehydrogenase Troponin T C-Reactive Protein Total Protein Albumin Prealbumin Triglycerides Cholesterol LDL Cholesterol Direct HDL Cholesterol 25-OH Vitamin D Total PTH Intact Urine pH Urine WBC (Auto) Urine Creatinine Urine Total Protein Fluid Total Protein Vancomycin Trough Rheumatoid Factor Complement C4 Miscellaneous Test Crossmatch 02/24/17 02/24/17 02/25/17 17:43 23:02 05:00 WBC RBC Hgb Hct MCV MCH MCHC RDW Plt Count Lymph % (Auto) [place] % (Auto) Lymph # [place] # Baso # Seg Neutrophils % Seg Neuts % (Manual) Lymphocytes % (Manual) Monocytes % (Manual) Eosinophils % (Manual) Basophils % (Manual) Nucleated RBC % Seg Neutrophils # Seg Neutrophils # Man Lymphocytes # (Manual) Monocytes # (Manual) Eosinophils # (Manual) Basophils # (Manual) PT INR Fibrinogen dRVVT Confirm Interp Factor V Activity POC ABG pH POC ABG pCO2 POC ABG pO2 ABG pO2 ABG HCO3 ABG Base Excess ABG Hemoglobin Oxyhemoglobin Sodium Potassium Chloride 96.8 L Carbon Dioxide BUN 94 H Creatinine 2.8 H Glucose 118 H POC Glucose 128 H 144 H Lactic Acid Calcium Ionized Calcium Phosphorus Magnesium Direct Bilirubin AST ALT Alkaline Phosphatase Lactate Dehydrogenase Troponin T C-Reactive Protein Total Protein Albumin Prealbumin Triglycerides Cholesterol LDL Cholesterol Direct HDL Cholesterol 25-OH Vitamin D Total PTH Intact Urine pH Urine WBC (Auto) Urine Creatinine Urine Total Protein Fluid Total Protein Vancomycin Trough Rheumatoid Factor Complement C4 Miscellaneous Test Crossmatch 02/25/17 02/25/17 02/25/17 05:32 11:44 18:18 WBC RBC Hgb Hct MCV MCH MCHC RDW Plt Count Lymph % (Auto) [place] % (Auto) Lymph # [place] # Baso # Seg Neutrophils % Seg Neuts % (Manual) Lymphocytes % (Manual) Monocytes % (Manual) Eosinophils % (Manual) Basophils % (Manual) Nucleated RBC % Seg Neutrophils # Seg Neutrophils # Man Lymphocytes # (Manual) Monocytes # (Manual) Eosinophils # (Manual) Basophils # (Manual) PT INR Fibrinogen dRVVT Confirm Interp Factor V Activity POC ABG pH POC ABG pCO2 POC ABG pO2 ABG pO2 ABG HCO3 ABG Base Excess ABG Hemoglobin Oxyhemoglobin Sodium Potassium Chloride Carbon Dioxide BUN Creatinine Glucose POC Glucose 118 H 106 H 210 H Lactic Acid Calcium Ionized Calcium Phosphorus Magnesium Direct Bilirubin AST ALT Alkaline Phosphatase Lactate Dehydrogenase Troponin T C-Reactive Protein Total Protein Albumin Prealbumin Triglycerides Cholesterol LDL Cholesterol Direct HDL Cholesterol 25-OH Vitamin D Total PTH Intact Urine pH Urine WBC (Auto) Urine Creatinine Urine Total Protein Fluid Total Protein Vancomycin Trough Rheumatoid Factor Complement C4 Miscellaneous Test Crossmatch 02/26/17 02/26/17 02/26/17 00:07 05:14 12:07 WBC RBC Hgb Hct MCV MCH MCHC RDW Plt Count Lymph % (Auto) [place] % (Auto) Lymph # [place] # Baso # Seg Neutrophils % Seg Neuts % (Manual) Lymphocytes % (Manual) Monocytes % (Manual) Eosinophils % (Manual) Basophils % (Manual) Nucleated RBC % Seg Neutrophils # Seg Neutrophils # Man Lymphocytes # (Manual) Monocytes # (Manual) Eosinophils # (Manual) Basophils # (Manual) PT INR Fibrinogen dRVVT Confirm Interp Factor V Activity POC ABG pH POC ABG pCO2 POC ABG pO2 ABG pO2 ABG HCO3 ABG Base Excess ABG Hemoglobin Oxyhemoglobin Sodium Potassium Chloride Carbon Dioxide BUN Creatinine Glucose POC Glucose 136 H 142 H 132 H Lactic Acid Calcium Ionized Calcium Phosphorus Magnesium Direct Bilirubin AST ALT Alkaline Phosphatase Lactate Dehydrogenase Troponin T C-Reactive Protein Total Protein Albumin Prealbumin Triglycerides Cholesterol LDL Cholesterol Direct HDL Cholesterol 25-OH Vitamin D Total PTH Intact Urine pH Urine WBC (Auto) Urine Creatinine Urine Total Protein Fluid Total Protein Vancomycin Trough Rheumatoid Factor Complement C4 Miscellaneous Test Crossmatch 02/26/17 02/26/17 02/27/17 18:35 23:54 06:25 WBC RBC Hgb Hct MCV MCH MCHC RDW Plt Count Lymph % (Auto) [place] % (Auto) Lymph # [place] # Baso # Seg Neutrophils % Seg Neuts % (Manual) Lymphocytes % (Manual) Monocytes % (Manual) Eosinophils % (Manual) Basophils % (Manual) Nucleated RBC % Seg Neutrophils # Seg Neutrophils # Man Lymphocytes # (Manual) Monocytes # (Manual) Eosinophils # (Manual) Basophils # (Manual) PT INR Fibrinogen dRVVT Confirm Interp Factor V Activity POC ABG pH POC ABG pCO2 POC ABG pO2 ABG pO2 ABG HCO3 ABG Base Excess ABG Hemoglobin Oxyhemoglobin Sodium Potassium Chloride Carbon Dioxide BUN Creatinine Glucose POC Glucose 155 H 150 H 138 H Lactic Acid Calcium Ionized Calcium Phosphorus Magnesium Direct Bilirubin AST ALT Alkaline Phosphatase Lactate Dehydrogenase Troponin T C-Reactive Protein Total Protein Albumin Prealbumin Triglycerides Cholesterol LDL Cholesterol Direct HDL Cholesterol 25-OH Vitamin D Total PTH Intact Urine pH Urine WBC (Auto) Urine Creatinine Urine Total Protein Fluid Total Protein Vancomycin Trough Rheumatoid Factor Complement C4 Miscellaneous Test Crossmatch 02/27/17 02/27/17 02/27/17 08:50 11:50 17:38 WBC RBC Hgb Hct MCV MCH MCHC RDW Plt Count Lymph % (Auto) [place] % (Auto) Lymph # [place] # Baso # Seg Neutrophils % Seg Neuts % (Manual) Lymphocytes % (Manual) Monocytes % (Manual) Eosinophils % (Manual) Basophils % (Manual) Nucleated RBC % Seg Neutrophils # Seg Neutrophils # Man Lymphocytes # (Manual) Monocytes # (Manual) Eosinophils # (Manual) Basophils # (Manual) PT INR Fibrinogen dRVVT Confirm Interp Factor V Activity POC ABG pH POC ABG pCO2 POC ABG pO2 ABG pO2 ABG HCO3 ABG Base Excess ABG Hemoglobin Oxyhemoglobin Sodium Potassium 3.2 L Chloride Carbon Dioxide BUN 95 H Creatinine 2.7 H Glucose 179 H POC Glucose 150 H 133 H Lactic Acid Calcium Ionized Calcium Phosphorus Magnesium Direct Bilirubin AST ALT Alkaline Phosphatase Lactate Dehydrogenase Troponin T C-Reactive Protein Total Protein Albumin Prealbumin Triglycerides Cholesterol LDL Cholesterol Direct HDL Cholesterol 25-OH Vitamin D Total PTH Intact Urine pH Urine WBC (Auto) Urine Creatinine Urine Total Protein Fluid Total Protein Vancomycin Trough Rheumatoid Factor Complement C4 Miscellaneous Test Crossmatch 02/27/17 02/28/17 02/28/17 23:55 05:23 06:10 WBC RBC Hgb Hct MCV MCH MCHC RDW Plt Count Lymph % (Auto) [place] % (Auto) Lymph # [place] # Baso # Seg Neutrophils % Seg Neuts % (Manual) Lymphocytes % (Manual) Monocytes % (Manual) Eosinophils % (Manual) Basophils % (Manual) Nucleated RBC % Seg Neutrophils # Seg Neutrophils # Man Lymphocytes # (Manual) Monocytes # (Manual) Eosinophils # (Manual) Basophils # (Manual) PT INR Fibrinogen dRVVT Confirm Interp Factor V Activity POC ABG pH POC ABG pCO2 POC ABG pO2 ABG pO2 ABG HCO3 ABG Base Excess ABG Hemoglobin Oxyhemoglobin Sodium 134 L Potassium 3.0 L Chloride 94.9 L Carbon Dioxide BUN 53 H Creatinine 1.9 H Glucose 138 H POC Glucose 134 H 164 H Lactic Acid Calcium Ionized Calcium Phosphorus 2.00 L D Magnesium Direct Bilirubin AST ALT Alkaline Phosphatase Lactate Dehydrogenase Troponin T C-Reactive Protein Total Protein Albumin Prealbumin Triglycerides Cholesterol LDL Cholesterol Direct HDL Cholesterol 25-OH Vitamin D Total PTH Intact Urine pH Urine WBC (Auto) Urine Creatinine Urine Total Protein Fluid Total Protein Vancomycin Trough Rheumatoid Factor Complement C4 Miscellaneous Test Crossmatch 02/28/17 02/28/17 02/28/17 12:18 17:54 23:47 WBC RBC Hgb Hct MCV MCH MCHC RDW Plt Count Lymph % (Auto) [place] % (Auto) Lymph # [place] # Baso # Seg Neutrophils % Seg Neuts % (Manual) Lymphocytes % (Manual) Monocytes % (Manual) Eosinophils % (Manual) Basophils % (Manual) Nucleated RBC % Seg Neutrophils # Seg Neutrophils # Man Lymphocytes # (Manual) Monocytes # (Manual) Eosinophils # (Manual) Basophils # (Manual) PT INR Fibrinogen dRVVT Confirm Interp Factor V Activity POC ABG pH POC ABG pCO2 POC ABG pO2 ABG pO2 ABG HCO3 ABG Base Excess ABG Hemoglobin Oxyhemoglobin Sodium Potassium Chloride Carbon Dioxide BUN Creatinine Glucose POC Glucose 135 H 140 H 144 H Lactic Acid Calcium Ionized Calcium Phosphorus Magnesium Direct Bilirubin AST ALT Alkaline Phosphatase Lactate Dehydrogenase Troponin T C-Reactive Protein Total Protein Albumin Prealbumin Triglycerides Cholesterol LDL Cholesterol Direct HDL Cholesterol 25-OH Vitamin D Total PTH Intact Urine pH Urine WBC (Auto) Urine Creatinine Urine Total Protein Fluid Total Protein Vancomycin Trough Rheumatoid Factor Complement C4 Miscellaneous Test Crossmatch 03/01/17 03/01/17 03/01/17 04:00 12:02 17:13 WBC RBC Hgb Hct MCV MCH MCHC RDW Plt Count Lymph % (Auto) [place] % (Auto) Lymph # [place] # Baso # Seg Neutrophils % Seg Neuts % (Manual) Lymphocytes % (Manual) Monocytes % (Manual) Eosinophils % (Manual) Basophils % (Manual) Nucleated RBC % Seg Neutrophils # Seg Neutrophils # Man Lymphocytes # (Manual) Monocytes # (Manual) Eosinophils # (Manual) Basophils # (Manual) PT INR Fibrinogen dRVVT Confirm Interp Factor V Activity POC ABG pH POC ABG pCO2 POC ABG pO2 ABG pO2 ABG HCO3 ABG Base Excess ABG Hemoglobin Oxyhemoglobin Sodium Potassium 3.0 L Chloride 97.0 L Carbon Dioxide BUN 81 H Creatinine 2.6 H Glucose 121 H POC Glucose 165 H 126 H Lactic Acid Calcium Ionized Calcium Phosphorus Magnesium Direct Bilirubin AST ALT Alkaline Phosphatase Lactate Dehydrogenase Troponin T C-Reactive Protein Total Protein Albumin Prealbumin Triglycerides Cholesterol LDL Cholesterol Direct HDL Cholesterol 25-OH Vitamin D Total PTH Intact Urine pH Urine WBC (Auto) Urine Creatinine Urine Total Protein Fluid Total Protein Vancomycin Trough Rheumatoid Factor Complement C4 Miscellaneous Test Crossmatch 03/02/17 03/02/17 03/02/17 00:10 03:05 05:20 WBC RBC Hgb Hct MCV MCH MCHC RDW Plt Count Lymph % (Auto) [place] % (Auto) Lymph # [place] # Baso # Seg Neutrophils % Seg Neuts % (Manual) Lymphocytes % (Manual) Monocytes % (Manual) Eosinophils % (Manual) Basophils % (Manual) Nucleated RBC % Seg Neutrophils # Seg Neutrophils # Man Lymphocytes # (Manual) Monocytes # (Manual) Eosinophils # (Manual) Basophils # (Manual) PT INR Fibrinogen dRVVT Confirm Interp Factor V Activity POC ABG pH POC ABG pCO2 POC ABG pO2 ABG pO2 ABG HCO3 ABG Base Excess ABG Hemoglobin Oxyhemoglobin Sodium Potassium 3.0 L Chloride Carbon Dioxide BUN 41 H Creatinine 1.6 H Glucose 130 H POC Glucose 129 H 173 H Lactic Acid Calcium Ionized Calcium Phosphorus 1.70 L D Magnesium 1.40 L Direct Bilirubin AST ALT Alkaline Phosphatase Lactate Dehydrogenase Troponin T C-Reactive Protein Total Protein Albumin Prealbumin Triglycerides Cholesterol LDL Cholesterol Direct HDL Cholesterol 25-OH Vitamin D Total PTH Intact Urine pH Urine WBC (Auto) Urine Creatinine Urine Total Protein Fluid Total Protein Vancomycin Trough Rheumatoid Factor Complement C4 Miscellaneous Test Crossmatch 03/02/17 03/02/17 03/02/17 11:49 16:38 23:46 WBC RBC Hgb Hct MCV MCH MCHC RDW Plt Count Lymph % (Auto) [place] % (Auto) Lymph # [place] # Baso # Seg Neutrophils % Seg Neuts % (Manual) Lymphocytes % (Manual) Monocytes % (Manual) Eosinophils % (Manual) Basophils % (Manual) Nucleated RBC % Seg Neutrophils # Seg Neutrophils # Man Lymphocytes # (Manual) Monocytes # (Manual) Eosinophils # (Manual) Basophils # (Manual) PT INR Fibrinogen dRVVT Confirm Interp Factor V Activity POC ABG pH POC ABG pCO2 POC ABG pO2 ABG pO2 ABG HCO3 ABG Base Excess ABG Hemoglobin Oxyhemoglobin Sodium Potassium Chloride Carbon Dioxide BUN Creatinine Glucose POC Glucose 129 H 141 H 119 H Lactic Acid Calcium Ionized Calcium Phosphorus Magnesium Direct Bilirubin AST ALT Alkaline Phosphatase Lactate Dehydrogenase Troponin T C-Reactive Protein Total Protein Albumin Prealbumin Triglycerides Cholesterol LDL Cholesterol Direct HDL Cholesterol 25-OH Vitamin D Total PTH Intact Urine pH Urine WBC (Auto) Urine Creatinine Urine Total Protein Fluid Total Protein Vancomycin Trough Rheumatoid Factor Complement C4 Miscellaneous Test Crossmatch 03/03/17 03/03/17 03/03/17 04:00 11:59 18:08 WBC RBC Hgb Hct MCV MCH MCHC RDW Plt Count Lymph % (Auto) [place] % (Auto) Lymph # [place] # Baso # Seg Neutrophils % Seg Neuts % (Manual) Lymphocytes % (Manual) Monocytes % (Manual) Eosinophils % (Manual) Basophils % (Manual) Nucleated RBC % Seg Neutrophils # Seg Neutrophils # Man Lymphocytes # (Manual) Monocytes # (Manual) Eosinophils # (Manual) Basophils # (Manual) PT INR Fibrinogen dRVVT Confirm Interp Factor V Activity POC ABG pH POC ABG pCO2 POC ABG pO2 ABG pO2 ABG HCO3 ABG Base Excess ABG Hemoglobin Oxyhemoglobin Sodium Potassium Chloride Carbon Dioxide BUN 70 H Creatinine 2.3 H Glucose POC Glucose 125 H 131 H Lactic Acid Calcium Ionized Calcium Phosphorus Magnesium Direct Bilirubin AST ALT Alkaline Phosphatase Lactate Dehydrogenase Troponin T C-Reactive Protein Total Protein Albumin Prealbumin Triglycerides Cholesterol LDL Cholesterol Direct HDL Cholesterol 25-OH Vitamin D Total PTH Intact Urine pH Urine WBC (Auto) Urine Creatinine Urine Total Protein Fluid Total Protein Vancomycin Trough Rheumatoid Factor Complement C4 Miscellaneous Test Crossmatch 03/03/17 03/03/17 03/04/17 20:17 23:43 05:21 WBC RBC Hgb Hct MCV MCH MCHC RDW Plt Count Lymph % (Auto) [place] % (Auto) Lymph # [place] # Baso # Seg Neutrophils % Seg Neuts % (Manual) Lymphocytes % (Manual) Monocytes % (Manual) Eosinophils % (Manual) Basophils % (Manual) Nucleated RBC % Seg Neutrophils # Seg Neutrophils # Man Lymphocytes # (Manual) Monocytes # (Manual) Eosinophils # (Manual) Basophils # (Manual) PT INR Fibrinogen dRVVT Confirm Interp Factor V Activity POC ABG pH 7.518 H POC ABG pCO2 28.8 L POC ABG pO2 61 L ABG pO2 ABG HCO3 ABG Base Excess ABG Hemoglobin Oxyhemoglobin Sodium Potassium Chloride Carbon Dioxide BUN Creatinine Glucose POC Glucose 122 H 130 H Lactic Acid Calcium Ionized Calcium Phosphorus Magnesium Direct Bilirubin AST ALT Alkaline Phosphatase Lactate Dehydrogenase Troponin T C-Reactive Protein Total Protein Albumin Prealbumin Triglycerides Cholesterol LDL Cholesterol Direct HDL Cholesterol 25-OH Vitamin D Total PTH Intact Urine pH Urine WBC (Auto) Urine Creatinine Urine Total Protein Fluid Total Protein Vancomycin Trough Rheumatoid Factor Complement C4 Miscellaneous Test Crossmatch 03/04/17 06:10 WBC RBC Hgb Hct MCV MCH MCHC RDW Plt Count Lymph % (Auto) [place] % (Auto) Lymph # [place] # Baso # Seg Neutrophils % Seg Neuts % (Manual) Lymphocytes % (Manual) Monocytes % (Manual) Eosinophils % (Manual) Basophils % (Manual) Nucleated RBC % Seg Neutrophils # Seg Neutrophils # Man Lymphocytes # (Manual) Monocytes # (Manual) Eosinophils # (Manual) Basophils # (Manual) PT INR Fibrinogen dRVVT Confirm Interp Factor V Activity POC ABG pH POC ABG pCO2 POC ABG pO2 ABG pO2 ABG HCO3 ABG Base Excess ABG Hemoglobin Oxyhemoglobin Sodium 135 L Potassium Chloride 95.8 L Carbon Dioxide BUN 40 H Creatinine 1.7 H Glucose 118 H POC Glucose Lactic Acid Calcium Ionized Calcium Phosphorus Magnesium Direct Bilirubin AST ALT Alkaline Phosphatase Lactate Dehydrogenase Troponin T C-Reactive Protein Total Protein Albumin Prealbumin Triglycerides Cholesterol LDL Cholesterol Direct HDL Cholesterol 25-OH Vitamin D Total PTH Intact Urine pH Urine WBC (Auto) Urine Creatinine Urine Total Protein Fluid Total Protein Vancomycin Trough Rheumatoid Factor Complement C4 Miscellaneous Test Crossmatch Allied health notes reviewed: nursing
[2017-03-04] MEDS: CORDARONE 900 MG in D5W 482 ML IV SCH (14:23)
--- NOTE | 2017-03-04 16:34 | Progress Note ---
Assessment and Plan Assessment and plan: Patient is 46-year-old woman with a history of hypertension, diabetes, asthma, hyperlipidemia, chronic kidney disease and anxiety , who was brought in by family because, she couldn't get her words out, her face was also twisted, she was admitted for acute CVA and accelerated hypertension, she had a hx of poor adherence with her medications, and uncontrolled htn. Patient's SBP on admission was noted be greater than 260. TPA was started but this was discontinued after 5 minutes because her blood pressure became uncontrolled. The TPA was not initiated again because the patient was outside the TPA window. Gram positive septicemia case dw ID vasc cath removed, on abx, TTE unremarkable, blood cx growing enterococus alonzo Status post cardiac arrest , 11/21/16 on Mechanical ventilation >96 hrs, > 6 months Vent Dependant Respiratory failure secondary to Anoxic Brain injury S/P Tracheostomy Severe Sepsis with septic shock; has completed multiple courses of abx Surgical wound infection/gram-negative sepsis/candidemia/peritonitis - On TPN ESRD - on HD Acute CVA with infarct - Neurology input appreciated - CT shows continued evolution of left MCA infarct with slight mass effect and edema, and there is no hemorrhage - PRINCE showed hyperdynamic with ef of 75%, neither clot nor septal defect seen - MRA Brain shows near complete occlusion of M2 and M3 of the left MCA - Repeat CT scan done on 09/11, shows stable findings - carotid doppler negative - Echo shows preserved systolic function but does show some left ventricular diastolic dysfunction - continue asa and statin Persistent vegetative state - This patient's needs placement at SNF - She was denied for LTACH Nosocomial acquired aspiration pneumonia/sepsis/UTI/PERITONITIS - Has completed multiple courses of abx A. fib with RVR -On amio drip, cannot change to PO due to persistent nausea and vomiting, NPO Diabetes type 2. -Continue sliding-scale regular insulin and Accu-Cheks. Hyperlipidemia. Continue statin Severe Protein calorie Malnutrition/Adult failure to thrive - TPN Anemia requiring multiple transfusions/acute blood loss -stable, keep hg above 7 Sacral decubitus ulcer - Status post debridement -Wound vac in place Disposition. Very poor prognosis. DNR - The high probability of a clinically significant, sudden or life threatening deterioration of the [neurologic, CV] system(s) required my full and direct attention, intervention and personal management. The aggregate critical care time was [35] minutes. This time is in addition to time spent performing reported procedures but includes the following: [x] Data Review and interpretation [x] Patient assessment and monitoring of vital signs [x] Documentation [x] Medication orders and management History Interval history: patient seen and examined, remains unresponsive on the ventilator. febrile overnight, no vomiting was tachypneic and tachycardic, overnight Hospitalist Physical - Physical exam Narrative exam: GEN: Ill appearing, trach, staring into space,, non purposeful movement NECK: SUPPLE, trach in place, ngt in place and to suction. CVS:Irregular Irregular with LUNGS/CHEST: NORMAL CHEST EXPANSION B, GOOD AIR ENTRY B, tachypena ABD: SOFT, no grimise on abdominal palpation, Ostomy bags at two side by side fistula site. GBS, NO REBOUND OR GUARDING, peg tube in place EXT/SKIN: NO SIGNIFICANT EDEMA BUT WITH UNSTAGEABLE SACRAL DECUB, wound vac inplace MSK: +spontaneous non purposeful movement NEURO: on a ventilator and unresponsive despite being off sedation PSY: Comatose, - Constitutional Vitals: Temp Pulse Resp BP Pulse Ox 99.8 F H 123 H 12 120/64 96 03/04/17 16:00 03/04/17 14:22 03/04/17 14:22 03/04/17 12:30 03/04/17 12:30 General appearance: Present: no acute distress, well-nourished Results - Labs CBC & Chem 7: 02/24/17 10:05 03/04/17 06:10 Labs: Laboratory Last Values WBC 10.2 K/mm3 (4.5-11.0) 02/24/17 10:05 RBC 2.95 M/mm3 (3.65-5.03) L 02/24/17 10:05 Hgb 8.4 gm/dl (10.1-14.3) L 02/24/17 10:05 Hct 25.7 % (30.3-42.9) L 02/24/17 10:05 MCV 87 fl (79-97) 02/24/17 10:05 MCH 28 pg (28-32) 02/24/17 10:05 MCHC 33 % (30-34) 02/24/17 10:05 RDW 20.8 % (13.2-15.2) H 02/24/17 10:05 Plt Count 333 K/mm3 (140-440) 02/24/17 10:05 Lymph % (Auto) 19.8 % (13.4-35.0) 02/24/17 10:05 Harris % (Auto) 7.2 % (0.0-7.3) 02/24/17 10:05 Eos % (Auto) 0.7 % (0.0-4.3) 02/24/17 10:05 Baso % (Auto) 0.5 % (0.0-1.8) 02/24/17 10:05 Lymph # 2.0 K/mm3 (1.2-5.4) 02/24/17 10:05 Harris # 0.7 K/mm3 (0.0-0.8) 02/24/17 10:05 Eos # 0.1 K/mm3 (0.0-0.4) 02/24/17 10:05 Baso # 0.0 K/mm3 (0.0-0.1) 02/24/17 10:05 Add Manual Diff Complete 12/19/16 05:02 Total Counted 100 12/19/16 05:02 Seg Neutrophils % 71.8 % (40.0-70.0) H 02/24/17 10:05 Seg Neuts % (Manual) 64.0 % (40.0-70.0) 12/19/16 05:02 Band Neutrophils % 15.0 % 12/19/16 05:02 Lymphocytes % (Manual) 13.0 % (13.4-35.0) L 12/19/16 05:02 Reactive Lymphs % (Man) 0 % 12/19/16 05:02 Monocytes % (Manual) 7.0 % (0.0-7.3) 12/19/16 05:02 Eosinophils % (Manual) 0 % (0.0-4.3) 12/19/16 05:02 Basophils % (Manual) 1.0 % (0.0-1.8) 12/19/16 05:02 Metamyelocytes % 0 % 12/19/16 05:02 Myelocytes % 0 % 12/19/16 05:02 Promyelocytes % 0 % 12/19/16 05:02 Blast Cells % 0 % 12/19/16 05:02 Nucleated RBC % 1.0 % (0.0-0.9) H 12/19/16 05:02 Seg Neutrophils # 7.3 K/mm3 (1.8-7.7) 02/24/17 10:05 Seg Neutrophils # Man 12.9 K/mm3 (1.8-7.7) H 12/19/16 05:02 Band Neutrophils # 3.0 K/mm3 12/19/16 05:02 Lymphocytes # (Manual) 2.6 K/mm3 (1.2-5.4) 12/19/16 05:02 Abs React Lymphs (Man) 0.0 K/mm3 12/19/16 05:02 Monocytes # (Manual) 1.4 K/mm3 (0.0-0.8) H 12/19/16 05:02 Eosinophils # (Manual) 0.0 K/mm3 (0.0-0.4) 12/19/16 05:02 Basophils # (Manual) 0.2 K/mm3 (0.0-0.1) H 12/19/16 05:02 Metamyelocytes # 0.0 K/mm3 12/19/16 05:02 Myelocytes # 0.0 K/mm3 12/19/16 05:02 Promyelocytes # 0.0 K/mm3 12/19/16 05:02 Blast Cells # 0.0 K/mm3 12/19/16 05:02 Pathologist Review 09/13/16 04:00 WBC Morphology Not Reportable 12/19/16 05:02 Hypersegmented Neuts Not Reportable 12/19/16 05:02 Hyposegmented Neuts Not Reportable 12/19/16 05:02 Hypogranular Neuts Not Reportable 12/19/16 05:02 Smudge Cells Not Reportable 12/19/16 05:02 Toxic Granulation Not Reportable 12/19/16 05:02 Toxic Vacuolation Not Reportable 12/19/16 05:02 Dohle Bodies Not Reportable 12/19/16 05:02 Pelger-Huet Anomaly Not Reportable 12/19/16 05:02 Jasmina Rods Not Reportable 12/19/16 05:02 Platelet Estimate Consistent w auto 12/19/16 05:02 Clumped Platelets Not Reportable 12/19/16 05:02 Plt Clumps, EDTA Not Reportable 12/19/16 05:02 Large Platelets Not Reportable 12/19/16 05:02 Giant Platelets Not Reportable 12/19/16 05:02 Platelet Satelliting Not Reportable 12/19/16 05:02 Plt Morphology Comment Not Reportable 12/19/16 05:02 RBC Morphology Not Reportable 12/19/16 05:02 Dimorphic RBCs Not Reportable 12/19/16 05:02 Polychromasia Not Reportable 12/19/16 05:02 Hypochromasia Not Reportable 12/19/16 05:02 Poikilocytosis Not Reportable 12/19/16 05:02 Anisocytosis Not Reportable 12/19/16 05:02 Microcytosis Not Reportable 12/19/16 05:02 Macrocytosis Not Reportable 12/19/16 05:02 Spherocytes Not Reportable 12/19/16 05:02 Pappenheimer Bodies Not Reportable 12/19/16 05:02 Sickle Cells Not Reportable 12/19/16 05:02 Target Cells Few 12/19/16 05:02 Tear Drop Cells Not Reportable 12/19/16 05:02 Ovalocytes Not Reportable 12/19/16 05:02 Stomatocytes Rare 12/03/16 04:00 Helmet Cells Not Reportable 12/19/16 05:02 Monet-Novinger Bodies Not Reportable 12/19/16 05:02 [place] Rings Not Reportable 12/19/16 05:02 [place] Cells Not Reportable 12/19/16 05:02 Bite Cells Not Reportable 12/19/16 05:02 Crenated Cell Not Reportable 12/19/16 05:02 Elliptocytes Not Reportable 12/19/16 05:02 Acanthocytes (Spur) Not Reportable 12/19/16 05:02 Rouleaux Not Reportable 12/19/16 05:02 Hemoglobin C Crystals Not Reportable 12/19/16 05:02 Schistocytes Not Reportable 12/19/16 05:02 Malaria parasites Not Reportable 12/19/16 05:02 ESR > 140.0 mm/Hr (0-20) 09/08/16 11:48 Jun Bodies Not Reportable 12/19/16 05:02 Hem Pathologist Commnt No 12/19/16 05:02 PT 15.4 Sec. (12.2-14.9) H 01/13/17 15:50 INR 1.16 (0.87-1.13) H 01/13/17 15:50 APTT 33.0 Sec. (24.2-36.6) 10/09/16 03:45 Thrombin Time 16.8 Sec. (15.1-19.6) 09/03/16 00:10 Fibrinogen 750 mg/dl (211-480) H 09/08/16 11:48 Lupus Anticoagulant see below 09/12/16 09:59 LA PTT Baseline See scanned report 09/12/16 09:59 dRVVT Confirm Interp Positive (Negative) H 09/12/16 09:59 dRVVT Screen 50:50 See scanned report 09/12/16 09:59 dRVVT Mix Interpret See scanned report 09/12/16 09:59 Protein C Antigen 122 % (70-140) 09/08/16 15:35 Free Protein S 97 % normal (50-147) 09/08/16 15:35 Total Protein S 109 % (70-140) 09/08/16 15:35 Antithrombin III Ag 100 % (80-120) 09/08/16 15:35 Heparin Anti-Xa, Unfract Negative (Negative) 09/29/16 13:35 Factor V Activity 182 % (65-150) H 09/08/16 15:35 POC ABG pH 7.518 (7.35-7.45) H 03/03/17 20:17 ABG pH 7.450 pH Units (7.350-7.450) 12/05/16 Unknown POC ABG pCO2 28.8 (35-45) L 03/03/17 20: ABG pCO2 29.6 mm Hg 12/05/16 Unknown POC ABG pO2 61 (80-105) L 03/03/17 20: ABG pO2 75.2 mm Hg (80.0-90.0) L 12/05/16 Unknown POC ABG HCO3 23.4 03/03/17 20: ABG HCO3 20.1 mmol/L (20.0-26.0) 12/05/16 Unknown POC ABG Total CO2 24 03/03/17 20:17 POC ABG O2 Sat 94 03/03/17 20: ABG O2 Saturation 96.8 % (95.0-99.0) 12/05/16 Unknown ABG O2 Content 9.9 (0.0-44) 12/05/16 Unknown POC ABG Base Excess 0 03/03/17 20:17 ABG Base Excess -3.4 mmol/L (-2.0-3.0) L 12/05/16 Unknown ABG Hemoglobin 7.4 gm/dl (12.0-16.0) L 12/05/16 Unknown ABG Carboxyhemoglobin 1.8 % (0.0-5.0) 12/05/16 Unknown ABG Methemoglobin 0.6 % (0.0-1.5) 12/05/16 Unknown Oxyhemoglobin 94.5 % (95.0-99.0) L 12/05/16 Unknown FiO2 40 % 03/03/17 20:17 Sodium 135 mmol/L (137-145) L 03/04/17 06:10 Potassium 4.4 mmol/L (3.6-5.0) 03/04/17 06:10 Chloride 95.8 mmol/L (98-107) L 03/04/17 06:10 Carbon Dioxide 23 mmol/L (22-30) 03/04/17 06:10 Anion Gap 21 mmol/L 03/04/17 06:10 BUN 40 mg/dL (7-17) H 03/04/17 06:10 Creatinine 1.7 mg/dL (0.7-1.2) H 03/04/17 06:10 Estimated GFR 39 ml/min 03/04/17 06:10 BUN/Creatinine Ratio 24 % 03/04/17 06:10 Glucose 118 mg/dL (65-100) H 03/04/17 06:10 POC Glucose 85 (70-105) 03/04/17 11:03 Osmolality 351 Mosm/kg 09/16/16 11:47 Lactic Acid 2.30 mmol/L (0.7-2.0) H* 01/09/17 08:22 Calcium 8.8 mg/dL (8.4-10.2) 03/04/17 06:10 Ionized Calcium 6.0 mg/dL (4.8-5.6) H 02/15/17 19:08 Phosphorus 3.00 mg/dL (2.5-4.5) D 03/04/17 06:10 Magnesium 2.00 mg/dL (1.7-2.3) 03/04/17 06:10 Total Bilirubin 0.50 mg/dL (0.1-1.2) 02/22/17 04:10 Direct Bilirubin 0.2 mg/dL (0-0.2) 01/28/17 04:00 Indirect Bilirubin 0.3 mg/dL 01/28/17 04:00 AST 10 units/L (5-40) 02/22/17 04:10 ALT 7 units/L (7-56) 02/22/17 04:10 Alkaline Phosphatase 95 units/L (35-129) 02/22/17 04:10 Ammonia 27.0 umol/L (25-60) 09/07/16 08:37 Lactate Dehydrogenase 170 units/L (91-180) 01/13/17 15:50 Total Creatine Kinase 121 units/L (30-135) 09/29/16 20:12 CK-MB (CK-2) < 1.0 ng/mL (0.0-4.0) 09/29/16 20:12 CK-MB (CK-2) Rel Index 0.8 (0-4) 09/29/16 20:12 Troponin T 0.204 ng/mL (0.00-0.029) H* 09/29/16 20:12 C-Reactive Protein 8.10 mg/dL (0.00-1.30) H 01/31/17 11:12 Total Protein 7.4 g/dL (6.3-8.2) 02/22/17 04:10 Albumin 1.3 g/dL (3.9-5) L 02/22/17 04:10 Albumin/Globulin Ratio 0.2 % 02/22/17 04:10 Prealbumin 0.110 g/L (0.200-0.400) L 12/29/16 05:15 Triglycerides 55 mg/dL (2-149) 02/06/17 04:45 Cholesterol 31 mg/dL (50-199) L 09/29/16 20:12 LDL Cholesterol Direct 4 mg/dL (50-130) L 09/29/16 20:12 HDL Cholesterol 3 mg/dL (40-59) L 09/29/16 20:12 Cholesterol/HDL Ratio 10.33 % 09/29/16 20:12 Angiotensin Convert Enz See scanned report 09/08/16 11:48 Renin 0.99 ng/mL/h (0.25-5.82) 10/07/16 10:56 Aldosterone <1 ng/dL () 10/07/16 10:56 Aldosterone/Renin Dir see below 10/07/16 10:56 Serotonin Release Assay See scanned report 09/29/16 13:35 25-OH Vitamin D Total 13 ng/mL (30-100) L 02/15/17 19:08 25-Hydroxy Vitamin D2 . 02/15/17 19:08 25-Hydroxy Vitamin D3 . 02/15/17 19:08 TSH 1.010 mlU/mL (0.270-4.200) 09/07/16 08:37 HCG, Qual Negative (Negative) 09/03/16 00:10 PTH Intact 10.88 pg/mL (15-65) L 02/15/17 19:08 Total Cortisol 18.2 mcg/dL () 02/02/17 20:09 Urine Color Yellow (Yellow) 11/05/16 13:09 Urine Turbidity Clear (Clear) 11/05/16 13:09 Urine pH 9.0 (5.0-7.0) H 11/05/16 13:09 Ur Specific [place] 1.011 (1.003-1.030) 11/05/16 13:09 Urine Protein 100 mg/dl mg/dL (Negative) 11/05/16 13:09 Urine Glucose (UA) Neg mg/dL (Negative) 11/05/16 13:09 Urine Ketones Neg mg/dL (Negative) 11/05/16 13:09 Urine Blood Neg (Negative) 11/05/16 13:09 Urine Nitrite Neg (Negative) 11/05/16 13:09 Urine Bilirubin Neg (Negative) 11/05/16 13:09 Urine Urobilinogen < 2.0 mg/dL (<2.0) 11/05/16 13:09 Ur Leukocyte Esterase Neg (Negative) 11/05/16 13:09 Urine WBC (Auto) 4.0 /HPF (0.0-6.0) 11/05/16 13:09 Urine RBC (Auto) 1.0 /HPF (0.0-6.0) 11/05/16 13:09 U Epithel Cells (Auto) 1.0 /HPF (0-13.0) 10/07/16 18:30 Urine Bacteria (Auto) 4+ /HPF (Negative) 11/05/16 13:09 Urine WBC Clumps 2+ /HPF 09/07/16 02:47 Hyaline Casts 4 /LPF 09/07/16 02:47 Urine Mucus Few /HPF 10/07/16 18:30 Urine Yeast (Budding) 3+ /HPF 10/07/16 18:30 Urine Eosinophils None seen (None Seen) 09/07/16 16:00 Urine Total Volume 950 11/12/16 10:18 Urine Creatinine 19.7 mg/dL (0.1-20.0) 11/12/16 10:18 Height (in) 65.0 inches 11/12/16 10:18 Weight (lb) 181.0 lbs 11/12/16 10:18 Creatinine Clearance 5 11/12/16 10:18 Urine Sodium 36 mEq/L 09/16/16 19:19 Urine Total Protein 16 mg/dL (5-11.8) H 09/16/16 19:19 Fluid Type Pleural 01/13/17 12:10 Fluid Color Yellow 01/13/17 12:10 Fluid Appearance Hazy 01/13/17 12:10 Fluid WBC 182 /mm3 01/13/17 12:10 Fluid RBC 41 /mm3 01/13/17 12:10 Fluid Seg Neutrophils 85.0 % 01/13/17 12:10 Fluid Lymphocytes 8.0 % 01/13/17 12:10 Fluid Reactive Lymphs 0 % 01/13/17 12:10 Fluid Monocytes 6.0 % 01/13/17 12:10 Fluid Eosinophils 1.0 % 01/13/17 12:10 Fluid Basophils 0 % 01/13/17 12:10 Fluid Total Protein 3.0 (15.0-45.0) L 01/13/17 12:10 Fluid LDH 1322 01/13/17 12:10 Fluid Comment Diff performed 01/13/17 12:10 Vancomycin Trough 2.3 ug/mL (5.0-20.0) L 09/21/16 13:00 Random Vancomycin 16.5 ug/mL (0-40.0) 11/28/16 09:45 Urine Opiates Screen Presumptive negative 09/03/16 15:11 Urine Methadone Screen Presumptive positive 09/03/16 15:11 Ur Barbiturates Screen Presumptive positive 09/03/16 15:11 Ur Phencyclidine Scrn Presumptive negative 09/03/16 15:11 Ur Amphetamines Screen Presumptive negative 09/03/16 15:11 U Benzodiazepines Scrn Presumptive negative 09/03/16 15:11 Urine Cocaine Screen Presumptive negative 09/03/16 15:11 U Marijuana (THC) Screen Presumptive positive 09/03/16 15:11 Drugs of Abuse Note Disclamer 09/03/16 15:11 Rheumatoid Factor 24 IU/ml (0-13) H 09/08/16 11:48 SAHIL Screen Negative (Negative) 09/07/16 09:20 Proteinase 3 (PR3) Ab <1.0 AI (<1.0) 09/07/16 09:20 Myeloperoxidase Ab <1.0 AI (<1.0) 09/07/16 09:20 Sjogren's Antibody <1.0 AI (<1.0) 09/08/16 15:35 Scl-70 Scleroderma Ab <1.0 AI (<1.0) 09/08/16 15:35 Centromere B Antibody <1.0 AI (<1.0) 09/08/16 12:02 Heparin-induced Plt Ab Negative (Negative) 09/29/16 13:35 UF Heparin High Dose 11 % Release 09/29/16 13:35 SUDHIR UFH Low Dose 0.1 6 % Release 09/29/16 13:35 SUDHIR UFH Low Dose 0.5 8 % Release 09/29/16 13:35 Cardiolipid IgG Ab <14 GPL (<=14) 09/12/16 09:59 Cardiolipid IgA Ab <11 APL (<=11) 09/12/16 09:59 Cardiolipid IgM Ab <12 MPL (<=12) 09/12/16 09:59 Complement C3 148 mg/dL (90-180) 09/07/16 09:20 Complement C4 58 mg/dL (16-47) H 09/07/16 09:20 RPR Nonreactive (Nonreactive) 09/08/16 11:48 Hepatitis A IgM Ab Non-reactive (NonReactive) 09/24/16 14:40 Hep Bs Antigen Non-reactive (Negative) 09/24/16 14:40 Hep B Core IgM Ab Non-reactive (NonReactive) 09/24/16 14:40 Hepatitis C Antibody Non-reactive (NonReactive) 09/24/16 14:40 HIV 1&2 Antibody Rapid Non react (Non React) 09/08/16 11:48 HIV P24 Antigen Non react (Non React) 09/08/16 11:48 Miscellaneous Test Flexitest 1 H 01/09/17 18:45 Blood Type A POSITIVE 02/12/17 10:25 Antibody Screen Negative 02/12/17 10:25 DELORIS Antibody Screen Negative 11/24/16 11:20 Crossmatch See Detail 02/12/17 10:25
--- NOTE | 2017-03-04 17:03 | Progress Note ---
Assessment and Plan Assessment * Oliguric acute kidney injury secondary to ATN on CKD - baseline SCr 1.7mg/dL; likely now ESRD * Enterococcal bacteremia - Mar 01 * GI bleed * Sepsis * Acute CVA - left MCA with midline shift * s/p Cardiac arrest * Encephalopathy * Atrial fibrillation w/ RVR * Enteric fistula * Acute hypoxic respiratory failure * Left renal artery stenosis * Anemia Plan: * Permcath removed yesterday - Mar 03 * Will plan for next HD treatment Monday/Monday - will need vas cath * Abx per ID * Adjust Ca bath with dialysis * Rate control per cardiology * Transfuse pRBC per primary team. * Epogen TIW prn * Vent management per pulm/CCM * Pressors prn for MAP>65 * Dose medications for renal function * Will see again on Monday Subjective Date of service: 03/04/17 Principal diagnosis: Acute resp failure on MVS; S/P Acute CVA; Acute Encephalopathy; JUANITA Interval history: 24h events reviewed. Permcath removed yesterday. Objective - Vital Signs Vital signs: Vital Signs - 12hr 03/04/17 03/04/17 03/04/17 05:15 05:30 05:45 Temperature Pulse Rate 129 H 128 H 129 H Pulse Rate [ Anterior Bilateral Throughout] Pulse Rate [ Apical] Respiratory 22 21 22 Rate Respiratory Rate [Anterior Bilateral Throughout] Blood Pressure 137/75 126/65 127/70 O2 Sat by Pulse 95 95 97 Oximetry O2 Sat by Pulse Oximetry [ Assessment] 03/04/17 03/04/17 03/04/17 06:00 06:15 06:29 Temperature Pulse Rate 131 H 115 H 130 H Pulse Rate [ Anterior Bilateral Throughout] Pulse Rate [ Apical] Respiratory 24 24 Rate Respiratory Rate [Anterior Bilateral Throughout] Blood Pressure 126/71 139/76 139/76 O2 Sat by Pulse 96 96 Oximetry O2 Sat by Pulse Oximetry [ Assessment] 03/04/17 03/04/17 03/04/17 06:30 06:45 07:00 Temperature Pulse Rate 119 H 119 H 118 H Pulse Rate [ Anterior Bilateral Throughout] Pulse Rate [ Apical] Respiratory 37 H 22 20 Rate Respiratory Rate [Anterior Bilateral Throughout] Blood Pressure 112/66 110/56 108/52 O2 Sat by Pulse 94 98 98 Oximetry O2 Sat by Pulse Oximetry [ Assessment] 03/04/17 03/04/17 03/04/17 07:15 07:30 07:45 Temperature Pulse Rate 118 H 118 H 119 H Pulse Rate [ Anterior Bilateral Throughout] Pulse Rate [ Apical] Respiratory 25 H 18 19 Rate Respiratory Rate [Anterior Bilateral Throughout] Blood Pressure 104/53 106/52 101/59 O2 Sat by Pulse 95 97 97 Oximetry O2 Sat by Pulse Oximetry [ Assessment] 03/04/17 03/04/17 03/04/17 08:00 08:15 08:30 Temperature 100.4 F H Pulse Rate 118 H 117 H 118 H Pulse Rate [ Anterior Bilateral Throughout] Pulse Rate [ 118 H Apical] Respiratory 22 18 18 Rate Respiratory Rate [Anterior Bilateral Throughout] Blood Pressure 95/48 113/53 105/54 O2 Sat by Pulse 88 97 97 Oximetry O2 Sat by Pulse Oximetry [ Assessment] 03/04/17 03/04/17 03/04/17 09:10 09:13 09:18 Temperature Pulse Rate 115 H Pulse Rate [ 115 H Anterior Bilateral Throughout] Pulse Rate [ Apical] Respiratory Rate Respiratory 18 Rate [Anterior Bilateral Throughout] Blood Pressure 103/59 O2 Sat by Pulse 98 Oximetry O2 Sat by Pulse 98 Oximetry [ Assessment] 03/04/17 03/04/17 03/04/17 09:23 10:00 11:30 Temperature 99.5 F Pulse Rate Pulse Rate [ 117 H Anterior Bilateral Throughout] Pulse Rate [ Apical] Respiratory Rate Respiratory 18 Rate [Anterior Bilateral Throughout] Blood Pressure O2 Sat by Pulse 99 Oximetry O2 Sat by Pulse Oximetry [ Assessment] 03/04/17 03/04/17 03/04/17 12:30 14:11 14:22 Temperature Pulse Rate 121 H Pulse Rate [ 120 H 123 H Anterior Bilateral Throughout] Pulse Rate [ Apical] Respiratory 26 H Rate Respiratory 12 12 Rate [Anterior Bilateral Throughout] Blood Pressure 120/64 O2 Sat by Pulse 96 Oximetry O2 Sat by Pulse Oximetry [ Assessment] 03/04/17 16:00 Temperature 99.8 F H Pulse Rate Pulse Rate [ Anterior Bilateral Throughout] Pulse Rate [ Apical] Respiratory Rate Respiratory Rate [Anterior Bilateral Throughout] Blood Pressure O2 Sat by Pulse Oximetry O2 Sat by Pulse Oximetry [ Assessment] - General Appearance General appearance: chronically ill EENT: ATNC Neck: other (Trach collar) Respiratory: Present: Ronchi Cardiology: tachycardia, S1S2 Gastrointestinal: hypoactive bowel sounds Neurologic: other (Patient does not respond to tactile or verbal stimuli) Musculoskeletal: other (dependent edema) - Lab 02/24/17 10:05 03/04/17 06:10 Most recent lab results ABG pH 7.450 pH Units (7.350-7.450) 12/05/16 Unknown ABG pCO2 29.6 mm Hg 12/05/16 Unknown ABG pO2 75.2 mm Hg (80.0-90.0) L 12/05/16 Unknown ABG HCO3 20.1 mmol/L (20.0-26.0) 12/05/16 Unknown ABG O2 Saturation 96.8 % (95.0-99.0) 12/05/16 Unknown Calcium 8.8 mg/dL (8.4-10.2) 03/04/17 06:10 Phosphorus 3.00 mg/dL (2.5-4.5) D 03/04/17 06:10 Magnesium 2.00 mg/dL (1.7-2.3) 03/04/17 06:10 Urine Creatinine 19.7 mg/dL (0.1-20.0) 11/12/16 10:18 Urine Sodium 36 mEq/L 09/16/16 19:19 Urine Total Protein 16 mg/dL (5-11.8) H 09/16/16 19:19
[2017-03-04] MEDS ORDERED: TPN ADULT IV SCH (20:00)
[2017-03-04] MEDS ORDERED: TPN ADULT 3,000 ML IV SCH (20:00)
[2017-03-05] MEDS: HumuLIN R SUB-Q SCH ×5 (01:19→18:56)
[2017-03-05] MEDS: LOPRESSOR IV SCH ×4 (02:00→21:00)
[2017-03-05] MEDS: REGLAN IV SCH ×3 (06:12→21:05)
[2017-03-05 07:15] LABS: Calcium 9.3 mg/dL (8.4-10.2)
--- NOTE | 2017-03-05 10:02 | Progress Note ---
Assessment and Plan Assessment and plan: Patient is 46-year-old woman with a history of hypertension, diabetes, asthma, hyperlipidemia, chronic kidney disease and anxiety , who was brought in by family because, she couldn't get her words out, her face was also twisted, she was admitted for acute CVA and accelerated hypertension, she had a hx of poor adherence with her medications, and uncontrolled htn. Patient's SBP on admission was noted be greater than 260. TPA was started but this was discontinued after 5 minutes because her blood pressure became uncontrolled. The TPA was not initiated again because the patient was outside the TPA window. Gram positive septicemia case dw ID vasc cath removed, on abx, TTE unremarkable, blood cx growing enterococus alonzo Status post cardiac arrest , 11/21/16 on Mechanical ventilation >96 hrs, > 6 months Vent Dependant Respiratory failure secondary to Anoxic Brain injury S/P Tracheostomy Severe Sepsis with septic shock; has completed multiple courses of abx Surgical wound infection/gram-negative sepsis/candidemia/peritonitis - On TPN ESRD - on HD Acute CVA with infarct - Neurology input appreciated - CT shows continued evolution of left MCA infarct with slight mass effect and edema, and there is no hemorrhage - PRINCE showed hyperdynamic with ef of 75%, neither clot nor septal defect seen - MRA Brain shows near complete occlusion of M2 and M3 of the left MCA - Repeat CT scan done on 09/11, shows stable findings - carotid doppler negative - Echo shows preserved systolic function but does show some left ventricular diastolic dysfunction - continue asa and statin Persistent vegetative state - This patient's needs placement at SNF - She was denied for LTACH Nosocomial acquired aspiration pneumonia/sepsis/UTI/PERITONITIS - Has completed multiple courses of abx A. fib with RVR -On amio drip, cannot change to PO due to persistent nausea and vomiting, NPO Diabetes type 2. -Continue sliding-scale regular insulin and Accu-Cheks. Hyperlipidemia. Continue statin Severe Protein calorie Malnutrition/Adult failure to thrive - TPN Anemia requiring multiple transfusions/acute blood loss -stable, keep hg above 7 Sacral decubitus ulcer - Status post debridement -Wound vac in place Disposition. Very poor prognosis. DNR - The high probability of a clinically significant, sudden or life threatening deterioration of the [neurologic, CV] system(s) required my full and direct attention, intervention and personal management. The aggregate critical care time was [35] minutes. This time is in addition to time spent performing reported procedures but includes the following: [x] Data Review and interpretation [x] Patient assessment and monitoring of vital signs [x] Documentation [x] Medication orders and management History Interval history: patient seen and examined, remains unresponsive on the ventilator. afebrile overnight, no vomiting was tachypneic and tachycardic, overnight Hospitalist Physical - Constitutional Vitals: Temp Pulse Resp BP Pulse Ox 99.8 F H 116 H 21 134/72 92 03/05/17 08:19 03/05/17 08:00 03/05/17 08:00 03/05/17 08:00 03/05/17 08:00 General appearance: Present: no acute distress, well-nourished Results - Labs CBC & Chem 7: 02/24/17 10:05 03/05/17 06:15 Labs: Laboratory Last Values WBC 10.2 K/mm3 (4.5-11.0) 02/24/17 10:05 RBC 2.95 M/mm3 (3.65-5.03) L 02/24/17 10:05 Hgb 8.4 gm/dl (10.1-14.3) L 02/24/17 10:05 Hct 25.7 % (30.3-42.9) L 02/24/17 10:05 MCV 87 fl (79-97) 02/24/17 10:05 MCH 28 pg (28-32) 02/24/17 10:05 MCHC 33 % (30-34) 02/24/17 10:05 RDW 20.8 % (13.2-15.2) H 02/24/17 10:05 Plt Count 333 K/mm3 (140-440) 02/24/17 10:05 Lymph % (Auto) 19.8 % (13.4-35.0) 02/24/17 10:05 [place] % (Auto) 7.2 % (0.0-7.3) 02/24/17 10:05 Eos % (Auto) 0.7 % (0.0-4.3) 02/24/17 10:05 Baso % (Auto) 0.5 % (0.0-1.8) 02/24/17 10:05 Lymph # 2.0 K/mm3 (1.2-5.4) 02/24/17 10:05 [place] # 0.7 K/mm3 (0.0-0.8) 02/24/17 10:05 Eos # 0.1 K/mm3 (0.0-0.4) 02/24/17 10:05 Baso # 0.0 K/mm3 (0.0-0.1) 02/24/17 10:05 Add Manual Diff Complete 12/19/16 05:02 Total Counted 100 12/19/16 05:02 Seg Neutrophils % 71.8 % (40.0-70.0) H 02/24/17 10:05 Seg Neuts % (Manual) 64.0 % (40.0-70.0) 12/19/16 05:02 Band Neutrophils % 15.0 % 12/19/16 05:02 Lymphocytes % (Manual) 13.0 % (13.4-35.0) L 12/19/16 05:02 Reactive Lymphs % (Man) 0 % 12/19/16 05:02 Monocytes % (Manual) 7.0 % (0.0-7.3) 12/19/16 05:02 Eosinophils % (Manual) 0 % (0.0-4.3) 12/19/16 05:02 Basophils % (Manual) 1.0 % (0.0-1.8) 12/19/16 05:02 Metamyelocytes % 0 % 12/19/16 05:02 Myelocytes % 0 % 12/19/16 05:02 Promyelocytes % 0 % 12/19/16 05:02 Blast Cells % 0 % 12/19/16 05:02 Nucleated RBC % 1.0 % (0.0-0.9) H 12/19/16 05:02 Seg Neutrophils # 7.3 K/mm3 (1.8-7.7) 02/24/17 10:05 Seg Neutrophils # Man 12.9 K/mm3 (1.8-7.7) H 12/19/16 05:02 Band Neutrophils # 3.0 K/mm3 12/19/16 05:02 Lymphocytes # (Manual) 2.6 K/mm3 (1.2-5.4) 12/19/16 05:02 Abs React Lymphs (Man) 0.0 K/mm3 12/19/16 05:02 Monocytes # (Manual) 1.4 K/mm3 (0.0-0.8) H 12/19/16 05:02 Eosinophils # (Manual) 0.0 K/mm3 (0.0-0.4) 12/19/16 05:02 Basophils # (Manual) 0.2 K/mm3 (0.0-0.1) H 12/19/16 05:02 Metamyelocytes # 0.0 K/mm3 12/19/16 05:02 Myelocytes # 0.0 K/mm3 12/19/16 05:02 Promyelocytes # 0.0 K/mm3 12/19/16 05:02 Blast Cells # 0.0 K/mm3 12/19/16 05:02 Pathologist Review 09/13/16 04:00 WBC Morphology Not Reportable 12/19/16 05:02 Hypersegmented Neuts Not Reportable 12/19/16 05:02 Hyposegmented Neuts Not Reportable 12/19/16 05:02 Hypogranular Neuts Not Reportable 12/19/16 05:02 Smudge Cells Not Reportable 12/19/16 05:02 Toxic Granulation Not Reportable 12/19/16 05:02 Toxic Vacuolation Not Reportable 12/19/16 05:02 Dohle Bodies Not Reportable 12/19/16 05:02 Pelger-Huet Anomaly Not Reportable 12/19/16 05:02 Jasmina Rods Not Reportable 12/19/16 05:02 Platelet Estimate Consistent w auto 12/19/16 05:02 Clumped Platelets Not Reportable 12/19/16 05:02 Plt Clumps, EDTA Not Reportable 12/19/16 05:02 Large Platelets Not Reportable 12/19/16 05:02 Giant Platelets Not Reportable 12/19/16 05:02 Platelet Satelliting Not Reportable 12/19/16 05:02 Plt Morphology Comment Not Reportable 12/19/16 05:02 RBC Morphology Not Reportable 12/19/16 05:02 Dimorphic RBCs Not Reportable 12/19/16 05:02 Polychromasia Not Reportable 12/19/16 05:02 Hypochromasia Not Reportable 12/19/16 05:02 Poikilocytosis Not Reportable 12/19/16 05:02 Anisocytosis Not Reportable 12/19/16 05:02 Microcytosis Not Reportable 12/19/16 05:02 Macrocytosis Not Reportable 12/19/16 05:02 Spherocytes Not Reportable 12/19/16 05:02 Pappenheimer Bodies Not Reportable 12/19/16 05:02 Sickle Cells Not Reportable 12/19/16 05:02 Target Cells Few 12/19/16 05:02 Tear Drop Cells Not Reportable 12/19/16 05:02 Ovalocytes Not Reportable 12/19/16 05:02 Stomatocytes Rare 12/03/16 04:00 Helmet Cells Not Reportable 12/19/16 05:02 Monet-Miller Bodies Not Reportable 12/19/16 05:02 Dennis Rings Not Reportable 12/19/16 05:02 [place] Cells Not Reportable 12/19/16 05:02 Bite Cells Not Reportable 12/19/16 05:02 Crenated Cell Not Reportable 12/19/16 05:02 Elliptocytes Not Reportable 12/19/16 05:02 Acanthocytes (Spur) Not Reportable 12/19/16 05:02 Rouleaux Not Reportable 12/19/16 05:02 Hemoglobin C Crystals Not Reportable 12/19/16 05:02 Schistocytes Not Reportable 12/19/16 05:02 Malaria parasites Not Reportable 12/19/16 05:02 ESR > 140.0 mm/Hr (0-20) 09/08/16 11:48 Jun Bodies Not Reportable 12/19/16 05:02 Hem Pathologist Commnt No 12/19/16 05:02 PT 15.4 Sec. (12.2-14.9) H 01/13/17 15:50 INR 1.16 (0.87-1.13) H 01/13/17 15:50 APTT 33.0 Sec. (24.2-36.6) 10/09/16 03:45 Thrombin Time 16.8 Sec. (15.1-19.6) 09/03/16 00:10 Fibrinogen 750 mg/dl (211-480) H 09/08/16 11:48 Lupus Anticoagulant see below 09/12/16 09:59 LA PTT Baseline See scanned report 09/12/16 09:59 dRVVT Confirm Interp Positive (Negative) H 09/12/16 09:59 dRVVT Screen 50:50 See scanned report 09/12/16 09:59 dRVVT Mix Interpret See scanned report 09/12/16 09:59 Protein C Antigen 122 % (70-140) 09/08/16 15:35 Free Protein S 97 % normal (50-147) 09/08/16 15:35 Total Protein S 109 % (70-140) 09/08/16 15:35 Antithrombin III Ag 100 % (80-120) 09/08/16 15:35 Heparin Anti-Xa, Unfract Negative (Negative) 09/29/16 13:35 Factor V Activity 182 % (65-150) H 09/08/16 15:35 POC ABG pH 7.518 (7.35-7.45) H 03/03/17 20:17 ABG pH 7.450 pH Units (7.350-7.450) 12/05/16 Unknown POC ABG pCO2 28.8 (35-45) L 03/03/17 20: ABG pCO2 29.6 mm Hg 12/05/16 Unknown POC ABG pO2 61 (80-105) L 03/03/17 20: ABG pO2 75.2 mm Hg (80.0-90.0) L 12/05/16 Unknown POC ABG HCO3 23.4 03/03/17 20:17 ABG HCO3 20.1 mmol/L (20.0-26.0) 12/05/16 Unknown POC ABG Total CO2 24 03/03/17 20:17 POC ABG O2 Sat 94 03/03/17 20: ABG O2 Saturation 96.8 % (95.0-99.0) 12/05/16 Unknown ABG O2 Content 9.9 (0.0-44) 12/05/16 Unknown POC ABG Base Excess 0 03/03/17 20: ABG Base Excess -3.4 mmol/L (-2.0-3.0) L 12/05/16 Unknown ABG Hemoglobin 7.4 gm/dl (12.0-16.0) L 12/05/16 Unknown ABG Carboxyhemoglobin 1.8 % (0.0-5.0) 12/05/16 Unknown ABG Methemoglobin 0.6 % (0.0-1.5) 12/05/16 Unknown Oxyhemoglobin 94.5 % (95.0-99.0) L 12/05/16 Unknown FiO2 40 % 03/03/17 20:17 Sodium 137 mmol/L (137-145) 03/05/17 06:15 Potassium 5.2 mmol/L (3.6-5.0) H 03/05/17 06:15 Chloride 97.7 mmol/L (98-107) L 03/05/17 06:15 Carbon Dioxide 21 mmol/L (22-30) L 03/05/17 06:15 Anion Gap 24 mmol/L 03/05/17 06:15 BUN 56 mg/dL (7-17) H 03/05/17 06:15 Creatinine 2.4 mg/dL (0.7-1.2) H 03/05/17 06:15 Estimated GFR 26 ml/min 03/05/17 06:15 BUN/Creatinine Ratio 23 % 03/05/17 06:15 Glucose 98 mg/dL (65-100) 03/05/17 06:15 POC Glucose 91 (70-105) 03/05/17 06:09 Osmolality 351 Mosm/kg 09/16/16 11:47 Lactic Acid 2.30 mmol/L (0.7-2.0) H* 01/09/17 08:22 Calcium 9.3 mg/dL (8.4-10.2) 03/05/17 06:15 Ionized Calcium 6.0 mg/dL (4.8-5.6) H 02/15/17 19:08 Phosphorus 4.80 mg/dL (2.5-4.5) H D 03/05/17 06:15 Magnesium 2.30 mg/dL (1.7-2.3) 03/05/17 06:15 Total Bilirubin 0.50 mg/dL (0.1-1.2) 02/22/17 04:10 Direct Bilirubin 0.2 mg/dL (0-0.2) 01/28/17 04:00 Indirect Bilirubin 0.3 mg/dL 01/28/17 04:00 AST 10 units/L (5-40) 02/22/17 04:10 ALT 7 units/L (7-56) 02/22/17 04:10 Alkaline Phosphatase 95 units/L (35-129) 02/22/17 04:10 Ammonia 27.0 umol/L (25-60) 09/07/16 08:37 Lactate Dehydrogenase 170 units/L (91-180) 01/13/17 15:50 Total Creatine Kinase 121 units/L (30-135) 09/29/16 20:12 CK-MB (CK-2) < 1.0 ng/mL (0.0-4.0) 09/29/16 20:12 CK-MB (CK-2) Rel Index 0.8 (0-4) 09/29/16 20:12 Troponin T 0.204 ng/mL (0.00-0.029) H* 09/29/16 20:12 C-Reactive Protein 8.10 mg/dL (0.00-1.30) H 01/31/17 11:12 Total Protein 7.4 g/dL (6.3-8.2) 02/22/17 04:10 Albumin 1.3 g/dL (3.9-5) L 02/22/17 04:10 Albumin/Globulin Ratio 0.2 % 02/22/17 04:10 Prealbumin 0.110 g/L (0.200-0.400) L 12/29/16 05:15 Triglycerides 55 mg/dL (2-149) 02/06/17 04:45 Cholesterol 31 mg/dL (50-199) L 09/29/16 20:12 LDL Cholesterol Direct 4 mg/dL (50-130) L 09/29/16 20:12 HDL Cholesterol 3 mg/dL (40-59) L 09/29/16 20:12 Cholesterol/HDL Ratio 10.33 % 09/29/16 20:12 Angiotensin Convert Enz See scanned report 09/08/16 11:48 Renin 0.99 ng/mL/h (0.25-5.82) 10/07/16 10:56 Aldosterone <1 ng/dL () 10/07/16 10:56 Aldosterone/Renin Dir see below 10/07/16 10:56 Serotonin Release Assay See scanned report 09/29/16 13:35 25-OH Vitamin D Total 13 ng/mL (30-100) L 02/15/17 19:08 25-Hydroxy Vitamin D2 . 02/15/17 19:08 25-Hydroxy Vitamin D3 . 02/15/17 19:08 TSH 1.010 mlU/mL (0.270-4.200) 09/07/16 08:37 HCG, Qual Negative (Negative) 09/03/16 00:10 PTH Intact 10.88 pg/mL (15-65) L 02/15/17 19:08 Total Cortisol 18.2 mcg/dL () 02/02/17 20:09 Urine Color Yellow (Yellow) 11/05/16 13:09 Urine Turbidity Clear (Clear) 11/05/16 13:09 Urine pH 9.0 (5.0-7.0) H 11/05/16 13:09 Ur Specific [place] 1.011 (1.003-1.030) 11/05/16 13:09 Urine Protein 100 mg/dl mg/dL (Negative) 11/05/16 13:09 Urine Glucose (UA) Neg mg/dL (Negative) 11/05/16 13:09 Urine Ketones Neg mg/dL (Negative) 11/05/16 13:09 Urine Blood Neg (Negative) 11/05/16 13:09 Urine Nitrite Neg (Negative) 11/05/16 13:09 Urine Bilirubin Neg (Negative) 11/05/16 13:09 Urine Urobilinogen < 2.0 mg/dL (<2.0) 11/05/16 13:09 Ur Leukocyte Esterase Neg (Negative) 11/05/16 13:09 Urine WBC (Auto) 4.0 /HPF (0.0-6.0) 11/05/16 13:09 Urine RBC (Auto) 1.0 /HPF (0.0-6.0) 11/05/16 13:09 U Epithel Cells (Auto) 1.0 /HPF (0-13.0) 10/07/16 18:30 Urine Bacteria (Auto) 4+ /HPF (Negative) 11/05/16 13:09 Urine WBC Clumps 2+ /HPF 09/07/16 02:47 Hyaline Casts 4 /LPF 09/07/16 02:47 Urine Mucus Few /HPF 10/07/16 18:30 Urine Yeast (Budding) 3+ /HPF 10/07/16 18:30 Urine Eosinophils None seen (None Seen) 09/07/16 16:00 Urine Total Volume 950 11/12/16 10:18 Urine Creatinine 19.7 mg/dL (0.1-20.0) 11/12/16 10:18 Height (in) 65.0 inches 11/12/16 10:18 Weight (lb) 181.0 lbs 11/12/16 10:18 Creatinine Clearance 5 11/12/16 10:18 Urine Sodium 36 mEq/L 09/16/16 19:19 Urine Total Protein 16 mg/dL (5-11.8) H 09/16/16 19:19 Fluid Type Pleural 01/13/17 12:10 Fluid Color Yellow 01/13/17 12:10 Fluid Appearance Hazy 01/13/17 12:10 Fluid WBC 182 /mm3 01/13/17 12:10 Fluid RBC 41 /mm3 01/13/17 12:10 Fluid Seg Neutrophils 85.0 % 01/13/17 12:10 Fluid Lymphocytes 8.0 % 01/13/17 12:10 Fluid Reactive Lymphs 0 % 01/13/17 12:10 Fluid Monocytes 6.0 % 01/13/17 12:10 Fluid Eosinophils 1.0 % 01/13/17 12:10 Fluid Basophils 0 % 01/13/17 12:10 Fluid Total Protein 3.0 (15.0-45.0) L 01/13/17 12:10 Fluid LDH 1322 01/13/17 12:10 Fluid Comment Diff performed 01/13/17 12:10 Vancomycin Trough 2.3 ug/mL (5.0-20.0) L 09/21/16 13:00 Random Vancomycin 16.5 ug/mL (0-40.0) 11/28/16 09:45 Urine Opiates Screen Presumptive negative 09/03/16 15:11 Urine Methadone Screen Presumptive positive 09/03/16 15:11 Ur Barbiturates Screen Presumptive positive 09/03/16 15:11 Ur Phencyclidine Scrn Presumptive negative 09/03/16 15:11 Ur Amphetamines Screen Presumptive negative 09/03/16 15:11 U Benzodiazepines Scrn Presumptive negative 09/03/16 15:11 Urine Cocaine Screen Presumptive negative 09/03/16 15:11 U Marijuana (THC) Screen Presumptive positive 09/03/16 15:11 Drugs of Abuse Note Disclamer 09/03/16 15:11 Rheumatoid Factor 24 IU/ml (0-13) H 09/08/16 11:48 SAHIL Screen Negative (Negative) 09/07/16 09:20 Proteinase 3 (PR3) Ab <1.0 AI (<1.0) 09/07/16 09:20 Myeloperoxidase Ab <1.0 AI (<1.0) 09/07/16 09:20 Sjogren's Antibody <1.0 AI (<1.0) 09/08/16 15:35 Scl-70 Scleroderma Ab <1.0 AI (<1.0) 09/08/16 15:35 Centromere B Antibody <1.0 AI (<1.0) 09/08/16 12:02 Heparin-induced Plt Ab Negative (Negative) 09/29/16 13:35 UF Heparin High Dose 11 % Release 09/29/16 13:35 SUDHIR UFH Low Dose 0.1 6 % Release 09/29/16 13:35 SUDHIR UFH Low Dose 0.5 8 % Release 09/29/16 13:35 Cardiolipid IgG Ab <14 GPL (<=14) 09/12/16 09:59 Cardiolipid IgA Ab <11 APL (<=11) 09/12/16 09:59 Cardiolipid IgM Ab <12 MPL (<=12) 09/12/16 09:59 Complement C3 148 mg/dL (90-180) 09/07/16 09:20 Complement C4 58 mg/dL (16-47) H 09/07/16 09:20 RPR Nonreactive (Nonreactive) 09/08/16 11:48 Hepatitis A IgM Ab Non-reactive (NonReactive) 09/24/16 14:40 Hep Bs Antigen Non-reactive (Negative) 09/24/16 14:40 Hep B Core IgM Ab Non-reactive (NonReactive) 09/24/16 14:40 Hepatitis C Antibody Non-reactive (NonReactive) 09/24/16 14:40 HIV 1&2 Antibody Rapid Non react (Non React) 09/08/16 11:48 HIV P24 Antigen Non react (Non React) 09/08/16 11:48 Miscellaneous Test Flexitest 1 H 01/09/17 18:45 Blood Type A POSITIVE 02/12/17 10:25 Antibody Screen Negative 02/12/17 10:25 DELORIS Antibody Screen Negative 11/24/16 11:20 Crossmatch See Detail 02/12/17 10:25
[2017-03-05] MEDS: DUONEB *Not for PRN Use IH SCH ×4 (10:41→20:20)
[2017-03-05] MEDS: HEPARIN SUB-Q SCH ×2 (12:13→21:34)
--- NOTE | 2017-03-05 12:57 | Progress Note ---
Assessment and Plan Acute Hypoxemic Respiratory Failure (now with exacerbation and back on MVS) Hypertension (unable to receive p.o. meds) Atrial Fibrillation with RVR s/p tracheostomy Acute encephalopathy s/p CVA Oropharyngeal dysphagia Enterococcal bacteremia sepsis syndrome Sacral Decubitus Ulcer (s/p surgical debridement) Anemia Obesity JUANITA now on hemodialysis Enteric Fistula - keep on with daily t-piece/PSV trials as tolerated - continue scheduled IV metoprolol with hold parameters - follow 2D ECHO re: ? SBE - stop Amiodarone drip once rate better controlled - continue to hold tube feeds due to continued intolerance; continue reglan at 10mg IV q8h - continue NGT to LIS - continue TPN - remains on amiodarone drip for persistent tachycardia - prn CXR's at this point - appreciate surgery input - continue fentanyl patch for pain issues especially s/p debridement - continue wound care per WCT and RN's (she is s/p surgical debridement) - continue anti-infectives per ID recs (Vancomycin now) - prn CRP & lactate levels if clinically indicated (Follow WBC also) - continue TPN administration (Change to PPN re: vascular access issues) - continue robinul & scopolamine for secretion control - continue to wean FiO2 for sats > 94% - continue bronchodilators and pulmonary toilet - VAP bundle addressed - continue to follow electrolytes and correct as necessary - continue GI & VTE prophylaxis - Continue flu & pneumovax per protocol - ethics consult placed and pending .....she remains critically ill on life sustaining interventions including MVS and at risk for further deterioration including ....30' CCT ....care plan discussed at length during team rounds ...alf prognosis remains guarded and this has intermittently been conveyed to family Subjective Date of service: 03/05/17 Principal diagnosis: Acute resp failure on MVS; S/P Acute CVA; Acute Encephalopathy; JUANITA Interval history: Patient is seen today for: Acute resp failure on MVS; S/P Acute CVA; Acute Encephalopathy; JUANITA Seen and examined at bedside; 24hour events reviewed; nursing and respiratory care staff consulted; no adverse overnight events reported to me; remains on MVS ; still with persistent NGT effluent; no gross bleeding; AMS is persistent Objective Vital Signs - 12hr 03/05/17 03/05/17 03/05/17 01:00 01:16 01:30 Temperature Pulse Rate 115 H 109 H 117 H Pulse Rate [ Apical] Pulse Rate [ From Monitor] Pulse Rate [ Left Dorsalis Pedis] Pulse Rate [ Left Radial] Pulse Rate [ Right Dorsalis Pedis] Pulse Rate [ Right Radial] Respiratory 23 20 15 Rate Blood Pressure 111/66 128/65 128/65 O2 Sat by Pulse Oximetry 03/05/17 03/05/17 03/05/17 01:46 02:00 02:16 Temperature Pulse Rate 115 H 111 H 105 H Pulse Rate [ Apical] Pulse Rate [ From Monitor] Pulse Rate [ Left Dorsalis Pedis] Pulse Rate [ Left Radial] Pulse Rate [ Right Dorsalis Pedis] Pulse Rate [ Right Radial] Respiratory 19 26 H 22 Rate Blood Pressure 128/65 133/82 128/65 O2 Sat by Pulse 94 90 96 Oximetry 03/05/17 03/05/17 03/05/17 02:30 02:46 03:00 Temperature Pulse Rate 103 H 107 H 107 H Pulse Rate [ Apical] Pulse Rate [ From Monitor] Pulse Rate [ Left Dorsalis Pedis] Pulse Rate [ Left Radial] Pulse Rate [ Right Dorsalis Pedis] Pulse Rate [ Right Radial] Respiratory 14 13 21 Rate Blood Pressure 128/65 133/82 135/76 O2 Sat by Pulse 95 100 99 Oximetry 03/05/17 03/05/17 03/05/17 03:16 03:30 03:46 Temperature Pulse Rate 108 H 109 H 109 H Pulse Rate [ Apical] Pulse Rate [ From Monitor] Pulse Rate [ Left Dorsalis Pedis] Pulse Rate [ Left Radial] Pulse Rate [ Right Dorsalis Pedis] Pulse Rate [ Right Radial] Respiratory 20 21 16 Rate Blood Pressure 135/76 135/76 135/76 O2 Sat by Pulse 98 98 98 Oximetry 03/05/17 03/05/17 03/05/17 03:47 04:00 04:16 Temperature Pulse Rate 107 H 110 H 108 H Pulse Rate [ 110 H Apical] Pulse Rate [ 110 H From Monitor] Pulse Rate [ 110 H Left Dorsalis Pedis] Pulse Rate [ 110 H Left Radial] Pulse Rate [ 110 H Right Dorsalis Pedis] Pulse Rate [ 110 H Right Radial] Respiratory 20 17 Rate Blood Pressure 135/76 135/76 128/78 O2 Sat by Pulse 99 100 96 Oximetry 03/05/17 03/05/17 03/05/17 04:30 04:46 05:00 Temperature Pulse Rate 107 H 109 H 109 H Pulse Rate [ Apical] Pulse Rate [ From Monitor] Pulse Rate [ Left Dorsalis Pedis] Pulse Rate [ Left Radial] Pulse Rate [ Right Dorsalis Pedis] Pulse Rate [ Right Radial] Respiratory 25 H 23 22 Rate Blood Pressure 128/78 128/78 134/74 O2 Sat by Pulse 92 94 92 Oximetry 03/05/17 03/05/17 03/05/17 05:16 05:30 05:46 Temperature Pulse Rate 111 H 115 H 118 H Pulse Rate [ Apical] Pulse Rate [ From Monitor] Pulse Rate [ Left Dorsalis Pedis] Pulse Rate [ Left Radial] Pulse Rate [ Right Dorsalis Pedis] Pulse Rate [ Right Radial] Respiratory 21 29 H 33 H Rate Blood Pressure 134/74 134/74 134/74 O2 Sat by Pulse 95 90 82 L Oximetry 03/05/17 03/05/17 03/05/17 06:00 06:16 06:30 Temperature Pulse Rate 113 H 119 H 117 H Pulse Rate [ Apical] Pulse Rate [ From Monitor] Pulse Rate [ Left Dorsalis Pedis] Pulse Rate [ Left Radial] Pulse Rate [ Right Dorsalis Pedis] Pulse Rate [ Right Radial] Respiratory 27 H 25 H 22 Rate Blood Pressure 132/77 132/77 132/77 O2 Sat by Pulse 84 83 L 79 L Oximetry 03/05/17 03/05/17 03/05/17 06:46 07:00 07:16 Temperature Pulse Rate 119 H 121 H 120 H Pulse Rate [ Apical] Pulse Rate [ From Monitor] Pulse Rate [ Left Dorsalis Pedis] Pulse Rate [ Left Radial] Pulse Rate [ Right Dorsalis Pedis] Pulse Rate [ Right Radial] Respiratory 20 31 H 30 H Rate Blood Pressure 132/77 132/77 116/60 O2 Sat by Pulse 83 L 80 L Oximetry 03/05/17 03/05/17 03/05/17 07:30 07:46 08:00 Temperature Pulse Rate 117 H 116 H 116 H Pulse Rate [ Apical] Pulse Rate [ From Monitor] Pulse Rate [ Left Dorsalis Pedis] Pulse Rate [ Left Radial] Pulse Rate [ Right Dorsalis Pedis] Pulse Rate [ Right Radial] Respiratory 26 H 25 H 21 Rate Blood Pressure 116/60 116/60 134/72 O2 Sat by Pulse 95 97 92 Oximetry 01/03/05/17 03/05/17 08:16 08:19 08:30 Temperature 99.8 F H Pulse Rate 113 H 113 H Pulse Rate [ Apical] Pulse Rate [ From Monitor] Pulse Rate [ Left Dorsalis Pedis] Pulse Rate [ Left Radial] Pulse Rate [ Right Dorsalis Pedis] Pulse Rate [ Right Radial] Respiratory 21 24 Rate Blood Pressure 134/72 134/72 O2 Sat by Pulse 93 93 Oximetry 03/05/17 03/05/17 03/05/17 08:46 09:00 09:16 Temperature Pulse Rate 112 H 112 H 112 H Pulse Rate [ Apical] Pulse Rate [ From Monitor] Pulse Rate [ Left Dorsalis Pedis] Pulse Rate [ Left Radial] Pulse Rate [ Right Dorsalis Pedis] Pulse Rate [ Right Radial] Respiratory 22 20 22 Rate Blood Pressure 134/72 126/73 126/73 O2 Sat by Pulse 93 94 95 Oximetry 03/05/17 03/05/17 03/05/17 09:30 09:46 10:00 Temperature Pulse Rate 96 H 100 H 100 H Pulse Rate [ Apical] Pulse Rate [ From Monitor] Pulse Rate [ Left Dorsalis Pedis] Pulse Rate [ Left Radial] Pulse Rate [ Right Dorsalis Pedis] Pulse Rate [ Right Radial] Respiratory 18 24 19 Rate Blood Pressure 126/73 126/73 123/67 O2 Sat by Pulse 98 97 Oximetry 03/05/17 03/05/17 03/05/17 10:16 10:22 10:30 Temperature Pulse Rate 101 H 102 H 102 H Pulse Rate [ Apical] Pulse Rate [ From Monitor] Pulse Rate [ Left Dorsalis Pedis] Pulse Rate [ Left Radial] Pulse Rate [ Right Dorsalis Pedis] Pulse Rate [ Right Radial] Respiratory 21 20 Rate Blood Pressure 123/67 123/67 123/67 O2 Sat by Pulse 97 97 Oximetry 03/05/17 03/05/17 03/05/17 10:46 11:00 11:16 Temperature Pulse Rate 105 H 105 H 108 H Pulse Rate [ Apical] Pulse Rate [ From Monitor] Pulse Rate [ Left Dorsalis Pedis] Pulse Rate [ Left Radial] Pulse Rate [ Right Dorsalis Pedis] Pulse Rate [ Right Radial] Respiratory 21 21 22 Rate Blood Pressure 123/67 127/65 127/65 O2 Sat by Pulse 98 98 98 Oximetry 03/05/17 03/05/17 03/05/17 11:30 11:46 11:56 Temperature 99.0 F Pulse Rate 106 H 107 H Pulse Rate [ Apical] Pulse Rate [ From Monitor] Pulse Rate [ Left Dorsalis Pedis] Pulse Rate [ Left Radial] Pulse Rate [ Right Dorsalis Pedis] Pulse Rate [ Right Radial] Respiratory 21 20 Rate Blood Pressure 127/65 127/65 O2 Sat by Pulse 97 98 Oximetry 03/05/17 12:00 Temperature Pulse Rate 108 H Pulse Rate [ Apical] Pulse Rate [ From Monitor] Pulse Rate [ Left Dorsalis Pedis] Pulse Rate [ Left Radial] Pulse Rate [ Right Dorsalis Pedis] Pulse Rate [ Right Radial] Respiratory 21 Rate Blood Pressure 124/63 O2 Sat by Pulse 96 Oximetry Constitutional: appears uncomfortable, other (not tracking) Eyes: non-icteric, other (tracheostomy tube in midline of neck) ENT: oropharynx moist, oropharyngeal exudate pre, other (midline tracheostomy tube) Neck: supple, no lymphadenopathy, no JVD, other (no thyromegaly) Effort: mildly labored Ascultation: Bilateral: rhonchi (and referred upper airway sounds) Percussion: Bilateral: not dull Cardiovascular: regular rate and rhythm, other (no rubs / murmurs) Gastrointestinal: hypoactive bowel sounds, soft, non-tender, non-distended, other (RLQ & LUQ stomas with colostomy bags) Integumentary: decubitus ulcer (sacral; stage 4 s/p surgical debridement), other (no rash; no cellulitis; poor turgor) Extremities: no cyanosis, pulses normal, no ischemia or petechiae, edema (1+ bilaterally) Neurologic: pupils equal and round, unable to assess, other (encephalopathic) Psychiatric: other (unable to assess) CBC and BMP: 02/24/17 10:05 03/09/17 05:20 ABG, PT/INR, D-dimer: ABG POC ABG pH 7.518 (7.35-7.45) H 03/03/17 20: ABG pH 7.450 pH Units (7.350-7.450) 12/05/16 Unknown POC ABG pCO2 28.8 (35-45) L 03/03/17 20: ABG pCO2 29.6 mm Hg 12/05/16 Unknown POC ABG pO2 61 (80-105) L 03/03/17 20:17 ABG pO2 75.2 mm Hg (80.0-90.0) L 12/05/16 Unknown POC ABG HCO3 23.4 03/03/17 20:17 POC ABG Total CO2 24 03/03/17 20:17 POC ABG O2 Sat 94 03/03/17 20:17 ABG O2 Saturation 96.8 % (95.0-99.0) 12/05/16 Unknown PT/INR, D-dimer PT 15.4 Sec. (12.2-14.9) H 01/13/17 15:50 INR 1.16 (0.87-1.13) H 01/13/17 15:50 Abnormal lab findings: Abnormal Labs 09/03/16 09/03/16 09/03/16 00:03 00:10 00:10 WBC 13.9 H RBC 5.95 H Hgb Hct 44.0 H MCV 74 L MCH 22 L MCHC RDW 17.5 H Plt Count Lymph % (Auto) Roberts % (Auto) Lymph # Roberts # Baso # Seg Neutrophils % Seg Neuts % (Manual) Lymphocytes % (Manual) 54.0 H Monocytes % (Manual) Eosinophils % (Manual) Basophils % (Manual) Nucleated RBC % Seg Neutrophils # Seg Neutrophils # Man Lymphocytes # (Manual) 7.5 H Monocytes # (Manual) Eosinophils # (Manual) Basophils # (Manual) PT INR Fibrinogen dRVVT Confirm Interp Factor V Activity POC ABG pH POC ABG pCO2 POC ABG pO2 ABG pO2 ABG HCO3 ABG Base Excess ABG Hemoglobin Oxyhemoglobin Sodium Potassium 2.8 L* Chloride Carbon Dioxide 21 L BUN Creatinine 1.7 H Glucose 159 H POC Glucose 177 H Lactic Acid Calcium Ionized Calcium Phosphorus Magnesium Direct Bilirubin AST ALT Alkaline Phosphatase Lactate Dehydrogenase Troponin T C-Reactive Protein Total Protein Albumin Prealbumin Triglycerides Cholesterol LDL Cholesterol Direct HDL Cholesterol 25-OH Vitamin D Total PTH Intact Urine pH Urine WBC (Auto) Urine Creatinine Urine Total Protein Fluid Total Protein Vancomycin Trough Rheumatoid Factor Complement C4 Miscellaneous Test Crossmatch 09/03/16 09/03/16 09/03/16 12:12 15:07 16:20 WBC RBC Hgb Hct MCV MCH MCHC RDW Plt Count Lymph % (Auto) Roberts % (Auto) Lymph # Roberts # Baso # Seg Neutrophils % Seg Neuts % (Manual) Lymphocytes % (Manual) Monocytes % (Manual) Eosinophils % (Manual) Basophils % (Manual) Nucleated RBC % Seg Neutrophils # Seg Neutrophils # Man Lymphocytes # (Manual) Monocytes # (Manual) Eosinophils # (Manual) Basophils # (Manual) PT INR Fibrinogen dRVVT Confirm Interp Factor V Activity POC ABG pH 7.452 H POC ABG pCO2 POC ABG pO2 ABG pO2 ABG HCO3 ABG Base Excess ABG Hemoglobin Oxyhemoglobin Sodium Potassium Chloride Carbon Dioxide BUN Creatinine Glucose POC Glucose 178 H Lactic Acid Calcium Ionized Calcium Phosphorus 2.20 L Magnesium 1.60 L Direct Bilirubin AST ALT Alkaline Phosphatase Lactate Dehydrogenase Troponin T C-Reactive Protein Total Protein Albumin Prealbumin Triglycerides Cholesterol LDL Cholesterol Direct HDL Cholesterol 25-OH Vitamin D Total PTH Intact Urine pH Urine WBC (Auto) Urine Creatinine Urine Total Protein Fluid Total Protein Vancomycin Trough Rheumatoid Factor Complement C4 Miscellaneous Test Crossmatch 09/03/16 09/03/16 09/03/16 17:57 17:58 23:50 WBC RBC Hgb Hct MCV MCH MCHC RDW Plt Count Lymph % (Auto) Roberts % (Auto) Lymph # Roberts # Baso # Seg Neutrophils % Seg Neuts % (Manual) Lymphocytes % (Manual) Monocytes % (Manual) Eosinophils % (Manual) Basophils % (Manual) Nucleated RBC % Seg Neutrophils # Seg Neutrophils # Man Lymphocytes # (Manual) Monocytes # (Manual) Eosinophils # (Manual) Basophils # (Manual) PT INR Fibrinogen dRVVT Confirm Interp Factor V Activity POC ABG pH POC ABG pCO2 POC ABG pO2 ABG pO2 ABG HCO3 ABG Base Excess ABG Hemoglobin Oxyhemoglobin Sodium Potassium Chloride Carbon Dioxide BUN Creatinine Glucose POC Glucose 162 H 145 H Lactic Acid Calcium Ionized Calcium Phosphorus 2.30 L Magnesium Direct Bilirubin AST ALT Alkaline Phosphatase Lactate Dehydrogenase Troponin T C-Reactive Protein Total Protein Albumin Prealbumin Triglycerides Cholesterol LDL Cholesterol Direct HDL Cholesterol 25-OH Vitamin D Total PTH Intact Urine pH Urine WBC (Auto) Urine Creatinine Urine Total Protein Fluid Total Protein Vancomycin Trough Rheumatoid Factor Complement C4 Miscellaneous Test Crossmatch 09/04/16 09/04/16 09/04/16 03:31 03:31 05:42 WBC RBC Hgb 9.7 L D Hct MCV 72 L MCH 23 L MCHC RDW 17.5 H Plt Count Lymph % (Auto) 11.1 L Roberts % (Auto) Lymph # Roberts # Baso # Seg Neutrophils % 84.3 H Seg Neuts % (Manual) Lymphocytes % (Manual) Monocytes % (Manual) Eosinophils % (Manual) Basophils % (Manual) Nucleated RBC % Seg Neutrophils # 8.9 H Seg Neutrophils # Man Lymphocytes # (Manual) Monocytes # (Manual) Eosinophils # (Manual) Basophils # (Manual) PT INR Fibrinogen dRVVT Confirm Interp Factor V Activity POC ABG pH POC ABG pCO2 POC ABG pO2 ABG pO2 ABG HCO3 ABG Base Excess ABG Hemoglobin Oxyhemoglobin Sodium 135 L Potassium 2.9 L* Chloride 97.2 L Carbon Dioxide 19 L BUN Creatinine 1.7 H Glucose 170 H POC Glucose 152 H Lactic Acid Calcium Ionized Calcium Phosphorus Magnesium Direct Bilirubin AST ALT Alkaline Phosphatase Lactate Dehydrogenase Troponin T C-Reactive Protein Total Protein Albumin Prealbumin Triglycerides 160 H Cholesterol LDL Cholesterol Direct HDL Cholesterol 31 L 25-OH Vitamin D Total PTH Intact Urine pH Urine WBC (Auto) Urine Creatinine Urine Total Protein Fluid Total Protein Vancomycin Trough Rheumatoid Factor Complement C4 Miscellaneous Test Crossmatch 09/04/16 09/04/16 09/04/16 11:34 17:46 23:29 WBC RBC Hgb Hct MCV MCH MCHC RDW Plt Count Lymph % (Auto) Roberts % (Auto) Lymph # Roberts # Baso # Seg Neutrophils % Seg Neuts % (Manual) Lymphocytes % (Manual) Monocytes % (Manual) Eosinophils % (Manual) Basophils % (Manual) Nucleated RBC % Seg Neutrophils # Seg Neutrophils # Man Lymphocytes # (Manual) Monocytes # (Manual) Eosinophils # (Manual) Basophils # (Manual) PT INR Fibrinogen dRVVT Confirm Interp Factor V Activity POC ABG pH POC ABG pCO2 POC ABG pO2 ABG pO2 ABG HCO3 ABG Base Excess ABG Hemoglobin Oxyhemoglobin Sodium Potassium Chloride Carbon Dioxide BUN Creatinine Glucose POC Glucose 165 H 210 H 139 H Lactic Acid Calcium Ionized Calcium Phosphorus Magnesium Direct Bilirubin AST ALT Alkaline Phosphatase Lactate Dehydrogenase Troponin T C-Reactive Protein Total Protein Albumin Prealbumin Triglycerides Cholesterol LDL Cholesterol Direct HDL Cholesterol 25-OH Vitamin D Total PTH Intact Urine pH Urine WBC (Auto) Urine Creatinine Urine Total Protein Fluid Total Protein Vancomycin Trough Rheumatoid Factor Complement C4 Miscellaneous Test Crossmatch 09/05/16 09/05/16 09/05/16 04:05 04:05 05:38 WBC RBC Hgb Hct MCV 76 L D MCH 23 L MCHC RDW 17.8 H Plt Count Lymph % (Auto) Roberts % (Auto) Lymph # Roberts # Baso # Seg Neutrophils % Seg Neuts % (Manual) Lymphocytes % (Manual) Monocytes % (Manual) Eosinophils % (Manual) Basophils % (Manual) Nucleated RBC % Seg Neutrophils # Seg Neutrophils # Man Lymphocytes # (Manual) Monocytes # (Manual) Eosinophils # (Manual) Basophils # (Manual) PT INR Fibrinogen dRVVT Confirm Interp Factor V Activity POC ABG pH POC ABG pCO2 POC ABG pO2 ABG pO2 ABG HCO3 ABG Base Excess ABG Hemoglobin Oxyhemoglobin Sodium 134 L Potassium Chloride Carbon Dioxide 18 L BUN Creatinine 1.8 H Glucose 192 H POC Glucose 175 H Lactic Acid Calcium Ionized Calcium Phosphorus Magnesium Direct Bilirubin AST ALT Alkaline Phosphatase Lactate Dehydrogenase Troponin T C-Reactive Protein Total Protein Albumin Prealbumin Triglycerides Cholesterol LDL Cholesterol Direct HDL Cholesterol 25-OH Vitamin D Total PTH Intact Urine pH Urine WBC (Auto) Urine Creatinine Urine Total Protein Fluid Total Protein Vancomycin Trough Rheumatoid Factor Complement C4 Miscellaneous Test Crossmatch 09/05/16 09/05/16 09/05/16 11:38 17:48 23:22 WBC RBC Hgb Hct MCV MCH MCHC RDW Plt Count Lymph % (Auto) Roberts % (Auto) Lymph # Roberts # Baso # Seg Neutrophils % Seg Neuts % (Manual) Lymphocytes % (Manual) Monocytes % (Manual) Eosinophils % (Manual) Basophils % (Manual) Nucleated RBC % Seg Neutrophils # Seg Neutrophils # Man Lymphocytes # (Manual) Monocytes # (Manual) Eosinophils # (Manual) Basophils # (Manual) PT INR Fibrinogen dRVVT Confirm Interp Factor V Activity POC ABG pH POC ABG pCO2 POC ABG pO2 ABG pO2 ABG HCO3 ABG Base Excess ABG Hemoglobin Oxyhemoglobin Sodium Potassium Chloride Carbon Dioxide BUN Creatinine Glucose POC Glucose 164 H 186 H 195 H Lactic Acid Calcium Ionized Calcium Phosphorus Magnesium Direct Bilirubin AST ALT Alkaline Phosphatase Lactate Dehydrogenase Troponin T C-Reactive Protein Total Protein Albumin Prealbumin Triglycerides Cholesterol LDL Cholesterol Direct HDL Cholesterol 25-OH Vitamin D Total PTH Intact Urine pH Urine WBC (Auto) Urine Creatinine Urine Total Protein Fluid Total Protein Vancomycin Trough Rheumatoid Factor Complement C4 Miscellaneous Test Crossmatch 09/06/16 09/06/16 09/06/16 04:12 05:59 07:32 WBC RBC Hgb Hct MCV MCH MCHC RDW Plt Count Lymph % (Auto) Roberts % (Auto) Lymph # Roberts # Baso # Seg Neutrophils % Seg Neuts % (Manual) Lymphocytes % (Manual) Monocytes % (Manual) Eosinophils % (Manual) Basophils % (Manual) Nucleated RBC % Seg Neutrophils # Seg Neutrophils # Man Lymphocytes # (Manual) Monocytes # (Manual) Eosinophils # (Manual) Basophils # (Manual) PT INR Fibrinogen dRVVT Confirm Interp Factor V Activity POC ABG pH 7.514 H POC ABG pCO2 29.1 L POC ABG pO2 72 L ABG pO2 ABG HCO3 ABG Base Excess ABG Hemoglobin Oxyhemoglobin Sodium 133 L Potassium 3.4 L Chloride 94.9 L Carbon Dioxide 19 L BUN 30 H Creatinine 2.1 H Glucose 139 H POC Glucose 146 H Lactic Acid Calcium Ionized Calcium Phosphorus Magnesium Direct Bilirubin AST ALT Alkaline Phosphatase Lactate Dehydrogenase Troponin T C-Reactive Protein Total Protein Albumin Prealbumin Triglycerides Cholesterol LDL Cholesterol Direct HDL Cholesterol 25-OH Vitamin D Total PTH Intact Urine pH Urine WBC (Auto) Urine Creatinine Urine Total Protein Fluid Total Protein Vancomycin Trough Rheumatoid Factor Complement C4 Miscellaneous Test Crossmatch 09/06/16 09/06/16 09/06/16 11:57 17:58 19:02 WBC RBC Hgb Hct MCV MCH MCHC RDW Plt Count Lymph % (Auto) Roberts % (Auto) Lymph # Roberts # Baso # Seg Neutrophils % Seg Neuts % (Manual) Lymphocytes % (Manual) Monocytes % (Manual) Eosinophils % (Manual) Basophils % (Manual) Nucleated RBC % Seg Neutrophils # Seg Neutrophils # Man Lymphocytes # (Manual) Monocytes # (Manual) Eosinophils # (Manual) Basophils # (Manual) PT INR Fibrinogen dRVVT Confirm Interp Factor V Activity POC ABG pH 7.465 H POC ABG pCO2 32.0 L POC ABG pO2 ABG pO2 ABG HCO3 ABG Base Excess ABG Hemoglobin Oxyhemoglobin Sodium Potassium Chloride Carbon Dioxide BUN Creatinine Glucose POC Glucose 165 H 160 H Lactic Acid Calcium Ionized Calcium Phosphorus Magnesium Direct Bilirubin AST ALT Alkaline Phosphatase Lactate Dehydrogenase Troponin T C-Reactive Protein Total Protein Albumin Prealbumin Triglycerides Cholesterol LDL Cholesterol Direct HDL Cholesterol 25-OH Vitamin D Total PTH Intact Urine pH Urine WBC (Auto) Urine Creatinine Urine Total Protein Fluid Total Protein Vancomycin Trough Rheumatoid Factor Complement C4 Miscellaneous Test Crossmatch 09/06/16 09/07/16 09/07/16 23:45 02:47 02:47 WBC RBC Hgb Hct MCV MCH MCHC RDW Plt Count Lymph % (Auto) Roberts % (Auto) Lymph # Roberts # Baso # Seg Neutrophils % Seg Neuts % (Manual) Lymphocytes % (Manual) Monocytes % (Manual) Eosinophils % (Manual) Basophils % (Manual) Nucleated RBC % Seg Neutrophils # Seg Neutrophils # Man Lymphocytes # (Manual) Monocytes # (Manual) Eosinophils # (Manual) Basophils # (Manual) PT INR Fibrinogen dRVVT Confirm Interp Factor V Activity POC ABG pH POC ABG pCO2 POC ABG pO2 ABG pO2 ABG HCO3 ABG Base Excess ABG Hemoglobin Oxyhemoglobin Sodium Potassium Chloride Carbon Dioxide BUN Creatinine Glucose POC Glucose 204 H Lactic Acid Calcium Ionized Calcium Phosphorus Magnesium Direct Bilirubin AST ALT Alkaline Phosphatase Lactate Dehydrogenase Troponin T C-Reactive Protein Total Protein Albumin Prealbumin Triglycerides Cholesterol LDL Cholesterol Direct HDL Cholesterol 25-OH Vitamin D Total PTH Intact Urine pH Urine WBC (Auto) 68.0 H Urine Creatinine 106.1 H Urine Total Protein Fluid Total Protein Vancomycin Trough Rheumatoid Factor Complement C4 Miscellaneous Test Crossmatch 09/07/16 09/07/16 09/07/16 04:50 06:19 06:39 WBC RBC Hgb Hct MCV MCH MCHC RDW Plt Count Lymph % (Auto) Roberts % (Auto) Lymph # Roberts # Baso # Seg Neutrophils % Seg Neuts % (Manual) Lymphocytes % (Manual) Monocytes % (Manual) Eosinophils % (Manual) Basophils % (Manual) Nucleated RBC % Seg Neutrophils # Seg Neutrophils # Man Lymphocytes # (Manual) Monocytes # (Manual) Eosinophils # (Manual) Basophils # (Manual) PT INR Fibrinogen dRVVT Confirm Interp Factor V Activity POC ABG pH 7.457 H POC ABG pCO2 32.1 L POC ABG pO2 76 L ABG pO2 ABG HCO3 ABG Base Excess ABG Hemoglobin Oxyhemoglobin Sodium 132 L Potassium Chloride 94.7 L Carbon Dioxide BUN 53 H Creatinine 2.9 H Glucose 151 H POC Glucose 149 H Lactic Acid Calcium Ionized Calcium Phosphorus Magnesium Direct Bilirubin AST ALT Alkaline Phosphatase Lactate Dehydrogenase Troponin T C-Reactive Protein Total Protein Albumin Prealbumin Triglycerides Cholesterol LDL Cholesterol Direct HDL Cholesterol 25-OH Vitamin D Total PTH Intact Urine pH Urine WBC (Auto) Urine Creatinine Urine Total Protein Fluid Total Protein Vancomycin Trough Rheumatoid Factor Complement C4 Miscellaneous Test Crossmatch 09/07/16 09/07/16 09/07/16 09:20 11:43 11:43 WBC 19.4 H RBC Hgb 8.3 L Hct 26.4 L D MCV 72 L D MCH 22 L MCHC RDW 17.9 H Plt Count Lymph % (Auto) 8.5 L Roberts % (Auto) Lymph # Roberts # 1.0 H Baso # Seg Neutrophils % 85.8 H Seg Neuts % (Manual) Lymphocytes % (Manual) Monocytes % (Manual) Eosinophils % (Manual) Basophils % (Manual) Nucleated RBC % Seg Neutrophils # 16.6 H Seg Neutrophils # Man Lymphocytes # (Manual) Monocytes # (Manual) Eosinophils # (Manual) Basophils # (Manual) PT INR Fibrinogen dRVVT Confirm Interp Factor V Activity POC ABG pH POC ABG pCO2 POC ABG pO2 ABG pO2 ABG HCO3 ABG Base Excess ABG Hemoglobin Oxyhemoglobin Sodium 134 L Potassium Chloride 97.2 L Carbon Dioxide 20 L BUN 58 H Creatinine 2.9 H Glucose 147 H POC Glucose Lactic Acid Calcium Ionized Calcium Phosphorus 2.40 L Magnesium 2.40 H Direct Bilirubin AST ALT Alkaline Phosphatase Lactate Dehydrogenase Troponin T C-Reactive Protein Total Protein 5.8 L Albumin 2.2 L Prealbumin Triglycerides Cholesterol LDL Cholesterol Direct HDL Cholesterol 25-OH Vitamin D Total PTH Intact Urine pH Urine WBC (Auto) Urine Creatinine Urine Total Protein Fluid Total Protein Vancomycin Trough Rheumatoid Factor Complement C4 58 H Miscellaneous Test Crossmatch 09/07/16 09/07/16 09/07/16 11:50 16:00 17:31 WBC RBC Hgb Hct MCV MCH MCHC RDW Plt Count Lymph % (Auto) Roberts % (Auto) Lymph # Roberts # Baso # Seg Neutrophils % Seg Neuts % (Manual) Lymphocytes % (Manual) Monocytes % (Manual) Eosinophils % (Manual) Basophils % (Manual) Nucleated RBC % Seg Neutrophils # Seg Neutrophils # Man Lymphocytes # (Manual) Monocytes # (Manual) Eosinophils # (Manual) Basophils # (Manual) PT INR Fibrinogen dRVVT Confirm Interp Factor V Activity POC ABG pH POC ABG pCO2 POC ABG pO2 158 H ABG pO2 ABG HCO3 ABG Base Excess ABG Hemoglobin Oxyhemoglobin Sodium Potassium Chloride Carbon Dioxide BUN Creatinine Glucose POC Glucose 175 H Lactic Acid Calcium Ionized Calcium Phosphorus Magnesium Direct Bilirubin AST ALT Alkaline Phosphatase Lactate Dehydrogenase Troponin T C-Reactive Protein Total Protein Albumin Prealbumin Triglycerides Cholesterol LDL Cholesterol Direct HDL Cholesterol 25-OH Vitamin D Total PTH Intact Urine pH Urine WBC (Auto) Urine Creatinine 66.3 H Urine Total Protein Fluid Total Protein Vancomycin Trough Rheumatoid Factor Complement C4 Miscellaneous Test Crossmatch 09/07/16 09/08/16 09/08/16 23:50 05:46 06:18 WBC 17.8 H RBC 3.58 L Hgb 8.1 L Hct 25.5 L MCV 71 L MCH 23 L MCHC RDW 18.4 H Plt Count Lymph % (Auto) Roberts % (Auto) Lymph # Roberts # Baso # Seg Neutrophils % Seg Neuts % (Manual) 92.0 H Lymphocytes % (Manual) 6.0 L Monocytes % (Manual) Eosinophils % (Manual) Basophils % (Manual) Nucleated RBC % Seg Neutrophils # Seg Neutrophils # Man 16.4 H Lymphocytes # (Manual) 1.1 L Monocytes # (Manual) Eosinophils # (Manual) Basophils # (Manual) PT INR Fibrinogen dRVVT Confirm Interp Factor V Activity POC ABG pH POC ABG pCO2 34.3 L POC ABG pO2 71 L ABG pO2 ABG HCO3 ABG Base Excess ABG Hemoglobin Oxyhemoglobin Sodium Potassium Chloride Carbon Dioxide BUN Creatinine Glucose POC Glucose 216 H Lactic Acid Calcium Ionized Calcium Phosphorus Magnesium Direct Bilirubin AST ALT Alkaline Phosphatase Lactate Dehydrogenase Troponin T C-Reactive Protein Total Protein Albumin Prealbumin Triglycerides Cholesterol LDL Cholesterol Direct HDL Cholesterol 25-OH Vitamin D Total PTH Intact Urine pH Urine WBC (Auto) Urine Creatinine Urine Total Protein Fluid Total Protein Vancomycin Trough Rheumatoid Factor Complement C4 Miscellaneous Test Crossmatch 09/08/16 09/08/16 09/08/16 06:18 06:51 10:55 WBC RBC Hgb Hct MCV MCH MCHC RDW Plt Count Lymph % (Auto) Roberts % (Auto) Lymph # Roberts # Baso # Seg Neutrophils % Seg Neuts % (Manual) Lymphocytes % (Manual) Monocytes % (Manual) Eosinophils % (Manual) Basophils % (Manual) Nucleated RBC % Seg Neutrophils # Seg Neutrophils # Man Lymphocytes # (Manual) Monocytes # (Manual) Eosinophils # (Manual) Basophils # (Manual) PT INR Fibrinogen dRVVT Confirm Interp Factor V Activity POC ABG pH POC ABG pCO2 POC ABG pO2 ABG pO2 ABG HCO3 ABG Base Excess ABG Hemoglobin Oxyhemoglobin Sodium 133 L Potassium Chloride 96.9 L Carbon Dioxide 20 L BUN 63 H Creatinine 2.7 H Glucose 195 H POC Glucose 204 H 169 H Lactic Acid Calcium Ionized Calcium Phosphorus Magnesium Direct Bilirubin AST ALT Alkaline Phosphatase Lactate Dehydrogenase Troponin T C-Reactive Protein Total Protein Albumin Prealbumin Triglycerides Cholesterol LDL Cholesterol Direct HDL Cholesterol 25-OH Vitamin D Total PTH Intact Urine pH Urine WBC (Auto) Urine Creatinine Urine Total Protein Fluid Total Protein Vancomycin Trough Rheumatoid Factor Complement C4 Miscellaneous Test Crossmatch 09/08/16 09/08/16 09/08/16 11:48 11:48 11:48 WBC RBC Hgb Hct MCV MCH MCHC RDW Plt Count Lymph % (Auto) Roberts % (Auto) Lymph # Roberts # Baso # Seg Neutrophils % Seg Neuts % (Manual) Lymphocytes % (Manual) Monocytes % (Manual) Eosinophils % (Manual) Basophils % (Manual) Nucleated RBC % Seg Neutrophils # Seg Neutrophils # Man Lymphocytes # (Manual) Monocytes # (Manual) Eosinophils # (Manual) Basophils # (Manual) PT INR Fibrinogen 750 H dRVVT Confirm Interp Factor V Activity POC ABG pH POC ABG pCO2 POC ABG pO2 ABG pO2 ABG HCO3 ABG Base Excess ABG Hemoglobin Oxyhemoglobin Sodium Potassium Chloride Carbon Dioxide BUN Creatinine Glucose POC Glucose Lactic Acid Calcium Ionized Calcium Phosphorus Magnesium Direct Bilirubin AST ALT Alkaline Phosphatase Lactate Dehydrogenase Troponin T C-Reactive Protein 15.70 H Total Protein Albumin Prealbumin Triglycerides Cholesterol LDL Cholesterol Direct HDL Cholesterol 25-OH Vitamin D Total PTH Intact Urine pH Urine WBC (Auto) Urine Creatinine Urine Total Protein Fluid Total Protein Vancomycin Trough Rheumatoid Factor 24 H Complement C4 Miscellaneous Test Crossmatch 09/08/16 09/08/16 09/09/16 15:35 18:25 00:24 WBC RBC Hgb Hct MCV MCH MCHC RDW Plt Count Lymph % (Auto) Roberts % (Auto) Lymph # Roberts # Baso # Seg Neutrophils % Seg Neuts % (Manual) Lymphocytes % (Manual) Monocytes % (Manual) Eosinophils % (Manual) Basophils % (Manual) Nucleated RBC % Seg Neutrophils # Seg Neutrophils # Man Lymphocytes # (Manual) Monocytes # (Manual) Eosinophils # (Manual) Basophils # (Manual) PT INR Fibrinogen dRVVT Confirm Interp Factor V Activity 182 H POC ABG pH POC ABG pCO2 POC ABG pO2 ABG pO2 ABG HCO3 ABG Base Excess ABG Hemoglobin Oxyhemoglobin Sodium Potassium Chloride Carbon Dioxide BUN Creatinine Glucose POC Glucose 184 H 216 H Lactic Acid Calcium Ionized Calcium Phosphorus Magnesium Direct Bilirubin AST ALT Alkaline Phosphatase Lactate Dehydrogenase Troponin T C-Reactive Protein Total Protein Albumin Prealbumin Triglycerides Cholesterol LDL Cholesterol Direct HDL Cholesterol 25-OH Vitamin D Total PTH Intact Urine pH Urine WBC (Auto) Urine Creatinine Urine Total Protein Fluid Total Protein Vancomycin Trough Rheumatoid Factor Complement C4 Miscellaneous Test Crossmatch 09/09/16 09/09/16 09/09/16 03:00 03:00 04:04 WBC 27.9 H RBC Hgb 8.7 L Hct 28.1 L MCV 72 L MCH 22 L MCHC RDW 18.4 H Plt Count 485 H Lymph % (Auto) Roberts % (Auto) Lymph # Roberts # Baso # Seg Neutrophils % Seg Neuts % (Manual) 77.0 H Lymphocytes % (Manual) 9.0 L Monocytes % (Manual) Eosinophils % (Manual) Basophils % (Manual) Nucleated RBC % Seg Neutrophils # Seg Neutrophils # Man 21.5 H Lymphocytes # (Manual) Monocytes # (Manual) 2.0 H Eosinophils # (Manual) Basophils # (Manual) PT INR Fibrinogen dRVVT Confirm Interp Factor V Activity POC ABG pH POC ABG pCO2 POC ABG pO2 121 H ABG pO2 ABG HCO3 ABG Base Excess ABG Hemoglobin Oxyhemoglobin Sodium 135 L Potassium Chloride 96.3 L Carbon Dioxide 21 L BUN 83 H Creatinine 3.0 H Glucose 135 H POC Glucose Lactic Acid Calcium Ionized Calcium Phosphorus Magnesium Direct Bilirubin AST ALT Alkaline Phosphatase Lactate Dehydrogenase Troponin T C-Reactive Protein Total Protein Albumin Prealbumin Triglycerides Cholesterol LDL Cholesterol Direct HDL Cholesterol 25-OH Vitamin D Total PTH Intact Urine pH Urine WBC (Auto) Urine Creatinine Urine Total Protein Fluid Total Protein Vancomycin Trough Rheumatoid Factor Complement C4 Miscellaneous Test Crossmatch 09/09/16 09/09/16 09/09/16 05:41 11:55 14:13 WBC RBC Hgb Hct MCV MCH MCHC RDW Plt Count Lymph % (Auto) Roberts % (Auto) Lymph # Roberts # Baso # Seg Neutrophils % Seg Neuts % (Manual) Lymphocytes % (Manual) Monocytes % (Manual) Eosinophils % (Manual) Basophils % (Manual) Nucleated RBC % Seg Neutrophils # Seg Neutrophils # Man Lymphocytes # (Manual) Monocytes # (Manual) Eosinophils # (Manual) Basophils # (Manual) PT INR Fibrinogen dRVVT Confirm Interp Factor V Activity POC ABG pH POC ABG pCO2 POC ABG pO2 ABG pO2 ABG HCO3 ABG Base Excess ABG Hemoglobin Oxyhemoglobin Sodium Potassium Chloride Carbon Dioxide BUN Creatinine Glucose POC Glucose 155 H 186 H Lactic Acid Calcium Ionized Calcium Phosphorus Magnesium Direct Bilirubin AST ALT Alkaline Phosphatase Lactate Dehydrogenase Troponin T C-Reactive Protein Total Protein Albumin Prealbumin Triglycerides Cholesterol LDL Cholesterol Direct HDL Cholesterol 25-OH Vitamin D Total PTH Intact Urine pH Urine WBC (Auto) 25.0 H Urine Creatinine Urine Total Protein Fluid Total Protein Vancomycin Trough Rheumatoid Factor Complement C4 Miscellaneous Test Crossmatch 09/09/16 09/09/16 09/10/16 17:33 23:13 05:09 WBC RBC Hgb Hct MCV MCH MCHC RDW Plt Count Lymph % (Auto) Roberts % (Auto) Lymph # Roberts # Baso # Seg Neutrophils % Seg Neuts % (Manual) Lymphocytes % (Manual) Monocytes % (Manual) Eosinophils % (Manual) Basophils % (Manual) Nucleated RBC % Seg Neutrophils # Seg Neutrophils # Man Lymphocytes # (Manual) Monocytes # (Manual) Eosinophils # (Manual) Basophils # (Manual) PT INR Fibrinogen dRVVT Confirm Interp Factor V Activity POC ABG pH POC ABG pCO2 POC ABG pO2 74 L ABG pO2 ABG HCO3 ABG Base Excess ABG Hemoglobin Oxyhemoglobin Sodium Potassium Chloride Carbon Dioxide BUN Creatinine Glucose POC Glucose 211 H 215 H Lactic Acid Calcium Ionized Calcium Phosphorus Magnesium Direct Bilirubin AST ALT Alkaline Phosphatase Lactate Dehydrogenase Troponin T C-Reactive Protein Total Protein Albumin Prealbumin Triglycerides Cholesterol LDL Cholesterol Direct HDL Cholesterol 25-OH Vitamin D Total PTH Intact Urine pH Urine WBC (Auto) Urine Creatinine Urine Total Protein Fluid Total Protein Vancomycin Trough Rheumatoid Factor Complement C4 Miscellaneous Test Crossmatch 09/10/16 09/10/16 09/10/16 05:17 05:17 11:31 WBC 15.8 H RBC 3.25 L Hgb 7.3 L Hct 22.9 L MCV 71 L MCH 23 L MCHC RDW 18.4 H Plt Count Lymph % (Auto) Roberts % (Auto) Lymph # Roberts # Baso # Seg Neutrophils % Seg Neuts % (Manual) 91.0 H Lymphocytes % (Manual) 4.0 L Monocytes % (Manual) Eosinophils % (Manual) Basophils % (Manual) Nucleated RBC % Seg Neutrophils # Seg Neutrophils # Man 14.4 H Lymphocytes # (Manual) 0.6 L Monocytes # (Manual) Eosinophils # (Manual) Basophils # (Manual) PT INR Fibrinogen dRVVT Confirm Interp Factor V Activity POC ABG pH POC ABG pCO2 POC ABG pO2 ABG pO2 ABG HCO3 ABG Base Excess ABG Hemoglobin Oxyhemoglobin Sodium Potassium Chloride Carbon Dioxide 21 L BUN 93 H Creatinine 2.9 H Glucose 146 H POC Glucose 188 H Lactic Acid Calcium 8.1 L Ionized Calcium Phosphorus Magnesium Direct Bilirubin AST ALT Alkaline Phosphatase Lactate Dehydrogenase Troponin T C-Reactive Protein Total Protein Albumin Prealbumin Triglycerides Cholesterol LDL Cholesterol Direct HDL Cholesterol 25-OH Vitamin D Total PTH Intact Urine pH Urine WBC (Auto) Urine Creatinine Urine Total Protein Fluid Total Protein Vancomycin Trough Rheumatoid Factor Complement C4 Miscellaneous Test Crossmatch 09/10/16 09/10/16 09/10/16 13:17 17:20 23:32 WBC RBC Hgb Hct MCV MCH MCHC RDW Plt Count Lymph % (Auto) Roberts % (Auto) Lymph # Roberts # Baso # Seg Neutrophils % Seg Neuts % (Manual) Lymphocytes % (Manual) Monocytes % (Manual) Eosinophils % (Manual) Basophils % (Manual) Nucleated RBC % Seg Neutrophils # Seg Neutrophils # Man Lymphocytes # (Manual) Monocytes # (Manual) Eosinophils # (Manual) Basophils # (Manual) PT INR Fibrinogen dRVVT Confirm Interp Factor V Activity POC ABG pH POC ABG pCO2 POC ABG pO2 ABG pO2 ABG HCO3 ABG Base Excess ABG Hemoglobin Oxyhemoglobin Sodium Potassium Chloride Carbon Dioxide BUN Creatinine Glucose POC Glucose 199 H 186 H Lactic Acid Calcium Ionized Calcium Phosphorus Magnesium Direct Bilirubin AST ALT Alkaline Phosphatase Lactate Dehydrogenase Troponin T C-Reactive Protein Total Protein Albumin Prealbumin Triglycerides Cholesterol LDL Cholesterol Direct HDL Cholesterol 25-OH Vitamin D Total PTH Intact Urine pH Urine WBC (Auto) Urine Creatinine Urine Total Protein Fluid Total Protein Vancomycin Trough Rheumatoid Factor Complement C4 Miscellaneous Test Crossmatch See Detail 09/11/16 09/11/16 09/11/16 05:10 05:10 05:17 WBC 28.4 H RBC Hgb 9.2 L Hct 29.3 L D MCV 73 L MCH 23 L MCHC RDW 18.9 H Plt Count 452 H Lymph % (Auto) Roberts % (Auto) Lymph # Roberts # Baso # Seg Neutrophils % Seg Neuts % (Manual) 89.5 H Lymphocytes % (Manual) 2.0 L Monocytes % (Manual) Eosinophils % (Manual) Basophils % (Manual) Nucleated RBC % Seg Neutrophils # Seg Neutrophils # Man 25.4 H Lymphocytes # (Manual) 0.6 L Monocytes # (Manual) 1.3 H Eosinophils # (Manual) Basophils # (Manual) PT INR Fibrinogen dRVVT Confirm Interp Factor V Activity POC ABG pH POC ABG pCO2 POC ABG pO2 ABG pO2 ABG HCO3 ABG Base Excess ABG Hemoglobin Oxyhemoglobin Sodium 136 L Potassium Chloride Carbon Dioxide 18 L BUN 107 H Creatinine 2.6 H Glucose 187 H POC Glucose 230 H Lactic Acid Calcium 8.3 L Ionized Calcium Phosphorus Magnesium Direct Bilirubin AST ALT Alkaline Phosphatase Lactate Dehydrogenase Troponin T C-Reactive Protein Total Protein Albumin Prealbumin Triglycerides Cholesterol LDL Cholesterol Direct HDL Cholesterol 25-OH Vitamin D Total PTH Intact Urine pH Urine WBC (Auto) Urine Creatinine Urine Total Protein Fluid Total Protein Vancomycin Trough Rheumatoid Factor Complement C4 Miscellaneous Test Crossmatch 09/11/16 09/11/16 09/11/16 05:55 12:02 17:32 WBC RBC Hgb Hct MCV MCH MCHC RDW Plt Count Lymph % (Auto) Roberts % (Auto) Lymph # Roberts # Baso # Seg Neutrophils % Seg Neuts % (Manual) Lymphocytes % (Manual) Monocytes % (Manual) Eosinophils % (Manual) Basophils % (Manual) Nucleated RBC % Seg Neutrophils # Seg Neutrophils # Man Lymphocytes # (Manual) Monocytes # (Manual) Eosinophils # (Manual) Basophils # (Manual) PT INR Fibrinogen dRVVT Confirm Interp Factor V Activity POC ABG pH POC ABG pCO2 33.8 L POC ABG pO2 ABG pO2 ABG HCO3 ABG Base Excess ABG Hemoglobin Oxyhemoglobin Sodium Potassium Chloride Carbon Dioxide BUN Creatinine Glucose POC Glucose 191 H 239 H Lactic Acid Calcium Ionized Calcium Phosphorus Magnesium Direct Bilirubin AST ALT Alkaline Phosphatase Lactate Dehydrogenase Troponin T C-Reactive Protein Total Protein Albumin Prealbumin Triglycerides Cholesterol LDL Cholesterol Direct HDL Cholesterol 25-OH Vitamin D Total PTH Intact Urine pH Urine WBC (Auto) Urine Creatinine Urine Total Protein Fluid Total Protein Vancomycin Trough Rheumatoid Factor Complement C4 Miscellaneous Test Crossmatch 09/11/16 09/12/16 09/12/16 23:52 05:09 05:32 WBC RBC Hgb Hct MCV MCH MCHC RDW Plt Count Lymph % (Auto) Roberts % (Auto) Lymph # Roberts # Baso # Seg Neutrophils % Seg Neuts % (Manual) Lymphocytes % (Manual) Monocytes % (Manual) Eosinophils % (Manual) Basophils % (Manual) Nucleated RBC % Seg Neutrophils # Seg Neutrophils # Man Lymphocytes # (Manual) Monocytes # (Manual) Eosinophils # (Manual) Basophils # (Manual) PT INR Fibrinogen dRVVT Confirm Interp Factor V Activity POC ABG pH POC ABG pCO2 34.6 L POC ABG pO2 ABG pO2 ABG HCO3 ABG Base Excess ABG Hemoglobin Oxyhemoglobin Sodium Potassium Chloride Carbon Dioxide BUN Creatinine Glucose POC Glucose 265 H 184 H Lactic Acid Calcium Ionized Calcium Phosphorus Magnesium Direct Bilirubin AST ALT Alkaline Phosphatase Lactate Dehydrogenase Troponin T C-Reactive Protein Total Protein Albumin Prealbumin Triglycerides Cholesterol LDL Cholesterol Direct HDL Cholesterol 25-OH Vitamin D Total PTH Intact Urine pH Urine WBC (Auto) Urine Creatinine Urine Total Protein Fluid Total Protein Vancomycin Trough Rheumatoid Factor Complement C4 Miscellaneous Test Crossmatch 09/12/16 09/12/16 09/12/16 06:45 06:45 07:22 WBC 31.7 H RBC 3.54 L Hgb 8.3 L Hct 25.9 L MCV 73 L MCH 23 L MCHC RDW 18.9 H Plt Count Lymph % (Auto) Roberts % (Auto) Lymph # Roberts # Baso # Seg Neutrophils % Seg Neuts % (Manual) 88.5 H Lymphocytes % (Manual) 4.5 L Monocytes % (Manual) Eosinophils % (Manual) Basophils % (Manual) Nucleated RBC % Seg Neutrophils # Seg Neutrophils # Man 28.1 H Lymphocytes # (Manual) Monocytes # (Manual) 1.0 H Eosinophils # (Manual) Basophils # (Manual) PT INR Fibrinogen dRVVT Confirm Interp Factor V Activity POC ABG pH POC ABG pCO2 POC ABG pO2 ABG pO2 ABG HCO3 ABG Base Excess ABG Hemoglobin Oxyhemoglobin Sodium Potassium Chloride Carbon Dioxide 20 L BUN 115 H Creatinine 2.7 H Glucose 165 H POC Glucose Lactic Acid Calcium 8.0 L Ionized Calcium Phosphorus Magnesium Direct Bilirubin AST ALT Alkaline Phosphatase Lactate Dehydrogenase Troponin T C-Reactive Protein Total Protein Albumin Prealbumin Triglycerides 217 H Cholesterol LDL Cholesterol Direct HDL Cholesterol 25-OH Vitamin D Total PTH Intact Urine pH Urine WBC (Auto) Urine Creatinine Urine Total Protein Fluid Total Protein Vancomycin Trough Rheumatoid Factor Complement C4 Miscellaneous Test Crossmatch 09/12/16 09/12/16 09/12/16 07:22 09:59 12:21 WBC RBC Hgb Hct MCV MCH MCHC RDW Plt Count Lymph % (Auto) Roberts % (Auto) Lymph # Roberts # Baso # Seg Neutrophils % Seg Neuts % (Manual) Lymphocytes % (Manual) Monocytes % (Manual) Eosinophils % (Manual) Basophils % (Manual) Nucleated RBC % Seg Neutrophils # Seg Neutrophils # Man Lymphocytes # (Manual) Monocytes # (Manual) Eosinophils # (Manual) Basophils # (Manual) PT INR Fibrinogen dRVVT Confirm Interp Positive H Factor V Activity POC ABG pH POC ABG pCO2 POC ABG pO2 ABG pO2 ABG HCO3 ABG Base Excess ABG Hemoglobin Oxyhemoglobin Sodium Potassium Chloride Carbon Dioxide BUN Creatinine Glucose POC Glucose 224 H Lactic Acid Calcium Ionized Calcium Phosphorus Magnesium Direct Bilirubin AST ALT Alkaline Phosphatase Lactate Dehydrogenase Troponin T C-Reactive Protein 1.70 H Total Protein Albumin Prealbumin Triglycerides Cholesterol LDL Cholesterol Direct HDL Cholesterol 25-OH Vitamin D Total PTH Intact Urine pH Urine WBC (Auto) Urine Creatinine Urine Total Protein Fluid Total Protein Vancomycin Trough Rheumatoid Factor Complement C4 Miscellaneous Test Crossmatch 09/12/16 09/12/16 09/13/16 16:51 23:28 04:00 WBC 45.0 H* RBC Hgb 9.4 L Hct MCV 75 L MCH 23 L MCHC RDW 19.0 H Plt Count 470 H Lymph % (Auto) Roberts % (Auto) Lymph # Roberts # Baso # Seg Neutrophils % Seg Neuts % (Manual) 89.0 H Lymphocytes % (Manual) 5.0 L Monocytes % (Manual) Eosinophils % (Manual) Basophils % (Manual) Nucleated RBC % Seg Neutrophils # Seg Neutrophils # Man 40.1 H Lymphocytes # (Manual) Monocytes # (Manual) Eosinophils # (Manual) Basophils # (Manual) PT INR Fibrinogen dRVVT Confirm Interp Factor V Activity POC ABG pH POC ABG pCO2 POC ABG pO2 ABG pO2 ABG HCO3 ABG Base Excess ABG Hemoglobin Oxyhemoglobin Sodium Potassium Chloride Carbon Dioxide BUN Creatinine Glucose POC Glucose 169 H 150 H Lactic Acid Calcium Ionized Calcium Phosphorus Magnesium Direct Bilirubin AST ALT Alkaline Phosphatase Lactate Dehydrogenase Troponin T C-Reactive Protein Total Protein Albumin Prealbumin Triglycerides Cholesterol LDL Cholesterol Direct HDL Cholesterol 25-OH Vitamin D Total PTH Intact Urine pH Urine WBC (Auto) Urine Creatinine Urine Total Protein Fluid Total Protein Vancomycin Trough Rheumatoid Factor Complement C4 Miscellaneous Test Crossmatch 09/13/16 09/13/16 09/13/16 04:00 11:26 17:31 WBC RBC Hgb Hct MCV MCH MCHC RDW Plt Count Lymph % (Auto) Roberts % (Auto) Lymph # Roberts # Baso # Seg Neutrophils % Seg Neuts % (Manual) Lymphocytes % (Manual) Monocytes % (Manual) Eosinophils % (Manual) Basophils % (Manual) Nucleated RBC % Seg Neutrophils # Seg Neutrophils # Man Lymphocytes # (Manual) Monocytes # (Manual) Eosinophils # (Manual) Basophils # (Manual) PT INR Fibrinogen dRVVT Confirm Interp Factor V Activity POC ABG pH POC ABG pCO2 POC ABG pO2 ABG pO2 ABG HCO3 ABG Base Excess ABG Hemoglobin Oxyhemoglobin Sodium Potassium Chloride Carbon Dioxide 20 L BUN 116 H Creatinine 3.0 H Glucose 172 H POC Glucose 140 H 183 H Lactic Acid Calcium Ionized Calcium Phosphorus Magnesium Direct Bilirubin AST ALT Alkaline Phosphatase Lactate Dehydrogenase Troponin T C-Reactive Protein Total Protein 6.2 L Albumin 2.9 L Prealbumin Triglycerides Cholesterol LDL Cholesterol Direct HDL Cholesterol 25-OH Vitamin D Total PTH Intact Urine pH Urine WBC (Auto) Urine Creatinine Urine Total Protein Fluid Total Protein Vancomycin Trough Rheumatoid Factor Complement C4 Miscellaneous Test Crossmatch 09/13/16 09/14/16 09/14/16 23:23 04:06 04:07 WBC 29.4 H RBC Hgb 8.9 L Hct 27.3 L MCV 75 L MCH 24 L MCHC RDW 19.1 H Plt Count Lymph % (Auto) Roberts % (Auto) Lymph # Roberts # Baso # Seg Neutrophils % Seg Neuts % (Manual) 84.0 H Lymphocytes % (Manual) 6.0 L Monocytes % (Manual) 9.0 H Eosinophils % (Manual) Basophils % (Manual) Nucleated RBC % Seg Neutrophils # Seg Neutrophils # Man 24.7 H Lymphocytes # (Manual) Monocytes # (Manual) 2.6 H Eosinophils # (Manual) Basophils # (Manual) PT INR Fibrinogen dRVVT Confirm Interp Factor V Activity POC ABG pH 7.342 L POC ABG pCO2 POC ABG pO2 116 H ABG pO2 ABG HCO3 ABG Base Excess ABG Hemoglobin Oxyhemoglobin Sodium Potassium Chloride Carbon Dioxide BUN Creatinine Glucose POC Glucose 154 H Lactic Acid Calcium Ionized Calcium Phosphorus Magnesium Direct Bilirubin AST ALT Alkaline Phosphatase Lactate Dehydrogenase Troponin T C-Reactive Protein Total Protein Albumin Prealbumin Triglycerides Cholesterol LDL Cholesterol Direct HDL Cholesterol 25-OH Vitamin D Total PTH Intact Urine pH Urine WBC (Auto) Urine Creatinine Urine Total Protein Fluid Total Protein Vancomycin Trough Rheumatoid Factor Complement C4 Miscellaneous Test Crossmatch 09/14/16 09/14/16 09/14/16 04:07 05:29 12:19 WBC RBC Hgb Hct MCV MCH MCHC RDW Plt Count Lymph % (Auto) Roberts % (Auto) Lymph # Roberts # Baso # Seg Neutrophils % Seg Neuts % (Manual) Lymphocytes % (Manual) Monocytes % (Manual) Eosinophils % (Manual) Basophils % (Manual) Nucleated RBC % Seg Neutrophils # Seg Neutrophils # Man Lymphocytes # (Manual) Monocytes # (Manual) Eosinophils # (Manual) Basophils # (Manual) PT INR Fibrinogen dRVVT Confirm Interp Factor V Activity POC ABG pH POC ABG pCO2 POC ABG pO2 ABG pO2 ABG HCO3 ABG Base Excess ABG Hemoglobin Oxyhemoglobin Sodium 136 L Potassium Chloride Carbon Dioxide 18 L BUN 121 H Creatinine 2.8 H Glucose 214 H POC Glucose 239 H 181 H Lactic Acid Calcium Ionized Calcium Phosphorus Magnesium Direct Bilirubin AST ALT Alkaline Phosphatase Lactate Dehydrogenase Troponin T C-Reactive Protein Total Protein Albumin Prealbumin Triglycerides Cholesterol LDL Cholesterol Direct HDL Cholesterol 25-OH Vitamin D Total PTH Intact Urine pH Urine WBC (Auto) Urine Creatinine Urine Total Protein Fluid Total Protein Vancomycin Trough Rheumatoid Factor Complement C4 Miscellaneous Test Crossmatch 09/14/16 09/14/16 09/15/16 18:12 23:37 05:00 WBC 26.1 H RBC 3.05 L Hgb 7.2 L Hct 22.9 L MCV 75 L MCH 24 L MCHC RDW 19.0 H Plt Count Lymph % (Auto) Roberts % (Auto) Lymph # Roberts # Baso # Seg Neutrophils % Seg Neuts % (Manual) Lymphocytes % (Manual) Monocytes % (Manual) Eosinophils % (Manual) Basophils % (Manual) Nucleated RBC % Seg Neutrophils # Seg Neutrophils # Man Lymphocytes # (Manual) Monocytes # (Manual) Eosinophils # (Manual) Basophils # (Manual) PT INR Fibrinogen dRVVT Confirm Interp Factor V Activity POC ABG pH POC ABG pCO2 POC ABG pO2 ABG pO2 ABG HCO3 ABG Base Excess ABG Hemoglobin Oxyhemoglobin Sodium Potassium Chloride Carbon Dioxide BUN Creatinine Glucose POC Glucose 266 H 154 H Lactic Acid Calcium Ionized Calcium Phosphorus Magnesium Direct Bilirubin AST ALT Alkaline Phosphatase Lactate Dehydrogenase Troponin T C-Reactive Protein Total Protein Albumin Prealbumin Triglycerides Cholesterol LDL Cholesterol Direct HDL Cholesterol 25-OH Vitamin D Total PTH Intact Urine pH Urine WBC (Auto) Urine Creatinine Urine Total Protein Fluid Total Protein Vancomycin Trough Rheumatoid Factor Complement C4 Miscellaneous Test Crossmatch 09/15/16 09/15/16 09/15/16 05:00 05:17 12:45 WBC RBC Hgb Hct MCV MCH MCHC RDW Plt Count Lymph % (Auto) Roberts % (Auto) Lymph # Roberts # Baso # Seg Neutrophils % Seg Neuts % (Manual) Lymphocytes % (Manual) Monocytes % (Manual) Eosinophils % (Manual) Basophils % (Manual) Nucleated RBC % Seg Neutrophils # Seg Neutrophils # Man Lymphocytes # (Manual) Monocytes # (Manual) Eosinophils # (Manual) Basophils # (Manual) PT INR Fibrinogen dRVVT Confirm Interp Factor V Activity POC ABG pH POC ABG pCO2 POC ABG pO2 ABG pO2 ABG HCO3 ABG Base Excess ABG Hemoglobin Oxyhemoglobin Sodium Potassium 5.2 H Chloride Carbon Dioxide 18 L BUN 139 H Creatinine 3.7 H Glucose 227 H POC Glucose 226 H 244 H Lactic Acid Calcium 8.3 L Ionized Calcium Phosphorus Magnesium Direct Bilirubin AST ALT Alkaline Phosphatase Lactate Dehydrogenase Troponin T C-Reactive Protein Total Protein Albumin Prealbumin Triglycerides Cholesterol LDL Cholesterol Direct HDL Cholesterol 25-OH Vitamin D Total PTH Intact Urine pH Urine WBC (Auto) Urine Creatinine Urine Total Protein Fluid Total Protein Vancomycin Trough Rheumatoid Factor Complement C4 Miscellaneous Test Crossmatch 09/15/16 09/15/16 09/15/16 14:32 17:33 23:35 WBC RBC Hgb Hct MCV MCH MCHC RDW Plt Count Lymph % (Auto) Roberts % (Auto) Lymph # Roberts # Baso # Seg Neutrophils % Seg Neuts % (Manual) Lymphocytes % (Manual) Monocytes % (Manual) Eosinophils % (Manual) Basophils % (Manual) Nucleated RBC % Seg Neutrophils # Seg Neutrophils # Man Lymphocytes # (Manual) Monocytes # (Manual) Eosinophils # (Manual) Basophils # (Manual) PT INR Fibrinogen dRVVT Confirm Interp Factor V Activity POC ABG pH POC ABG pCO2 27.7 L POC ABG pO2 120 H ABG pO2 ABG HCO3 ABG Base Excess ABG Hemoglobin Oxyhemoglobin Sodium Potassium Chloride Carbon Dioxide BUN Creatinine Glucose POC Glucose 232 H 167 H Lactic Acid Calcium Ionized Calcium Phosphorus Magnesium Direct Bilirubin AST ALT Alkaline Phosphatase Lactate Dehydrogenase Troponin T C-Reactive Protein Total Protein Albumin Prealbumin Triglycerides Cholesterol LDL Cholesterol Direct HDL Cholesterol 25-OH Vitamin D Total PTH Intact Urine pH Urine WBC (Auto) Urine Creatinine Urine Total Protein Fluid Total Protein Vancomycin Trough Rheumatoid Factor Complement C4 Miscellaneous Test Crossmatch 09/16/16 09/16/16 09/16/16 03:58 10:27 10:27 WBC 19.0 H RBC 2.77 L Hgb 6.5 L Hct 20.9 L MCV 76 L MCH 23 L MCHC RDW 19.3 H Plt Count Lymph % (Auto) 11.0 L Roberts % (Auto) Lymph # Roberts # 1.1 H Baso # Seg Neutrophils % 82.5 H Seg Neuts % (Manual) Lymphocytes % (Manual) Monocytes % (Manual) Eosinophils % (Manual) Basophils % (Manual) Nucleated RBC % Seg Neutrophils # 15.7 H Seg Neutrophils # Man Lymphocytes # (Manual) Monocytes # (Manual) Eosinophils # (Manual) Basophils # (Manual) PT INR Fibrinogen dRVVT Confirm Interp Factor V Activity POC ABG pH POC ABG pCO2 POC ABG pO2 ABG pO2 ABG HCO3 ABG Base Excess ABG Hemoglobin Oxyhemoglobin Sodium Potassium Chloride 109.3 H Carbon Dioxide 18 L BUN 139 H Creatinine 4.1 H Glucose 144 H POC Glucose 146 H Lactic Acid Calcium 8.1 L Ionized Calcium Phosphorus Magnesium Direct Bilirubin AST ALT Alkaline Phosphatase Lactate Dehydrogenase Troponin T C-Reactive Protein Total Protein Albumin Prealbumin Triglycerides Cholesterol LDL Cholesterol Direct HDL Cholesterol 25-OH Vitamin D Total PTH Intact Urine pH Urine WBC (Auto) Urine Creatinine Urine Total Protein Fluid Total Protein Vancomycin Trough Rheumatoid Factor Complement C4 Miscellaneous Test Crossmatch 09/16/16 09/16/16 09/16/16 12:04 12:10 13:55 WBC RBC Hgb Hct MCV MCH MCHC RDW Plt Count Lymph % (Auto) Roberts % (Auto) Lymph # Roberts # Baso # Seg Neutrophils % Seg Neuts % (Manual) Lymphocytes % (Manual) Monocytes % (Manual) Eosinophils % (Manual) Basophils % (Manual) Nucleated RBC % Seg Neutrophils # Seg Neutrophils # Man Lymphocytes # (Manual) Monocytes # (Manual) Eosinophils # (Manual) Basophils # (Manual) PT INR Fibrinogen dRVVT Confirm Interp Factor V Activity POC ABG pH POC ABG pCO2 32.9 L POC ABG pO2 ABG pO2 ABG HCO3 ABG Base Excess ABG Hemoglobin Oxyhemoglobin Sodium Potassium Chloride Carbon Dioxide BUN Creatinine Glucose POC Glucose 185 H Lactic Acid Calcium Ionized Calcium Phosphorus Magnesium Direct Bilirubin AST ALT Alkaline Phosphatase Lactate Dehydrogenase Troponin T C-Reactive Protein Total Protein Albumin Prealbumin Triglycerides Cholesterol LDL Cholesterol Direct HDL Cholesterol 25-OH Vitamin D Total PTH Intact Urine pH Urine WBC (Auto) Urine Creatinine Urine Total Protein Fluid Total Protein Vancomycin Trough Rheumatoid Factor Complement C4 Miscellaneous Test Crossmatch See Detail 09/16/16 09/16/16 09/16/16 17:55 19:19 23:48 WBC RBC Hgb Hct MCV MCH MCHC RDW Plt Count Lymph % (Auto) Roberts % (Auto) Lymph # Roberts # Baso # Seg Neutrophils % Seg Neuts % (Manual) Lymphocytes % (Manual) Monocytes % (Manual) Eosinophils % (Manual) Basophils % (Manual) Nucleated RBC % Seg Neutrophils # Seg Neutrophils # Man Lymphocytes # (Manual) Monocytes # (Manual) Eosinophils # (Manual) Basophils # (Manual) PT INR Fibrinogen dRVVT Confirm Interp Factor V Activity POC ABG pH POC ABG pCO2 POC ABG pO2 ABG pO2 ABG HCO3 ABG Base Excess ABG Hemoglobin Oxyhemoglobin Sodium Potassium Chloride Carbon Dioxide BUN Creatinine Glucose POC Glucose 222 H 107 H Lactic Acid Calcium Ionized Calcium Phosphorus Magnesium Direct Bilirubin AST ALT Alkaline Phosphatase Lactate Dehydrogenase Troponin T C-Reactive Protein Total Protein Albumin Prealbumin Triglycerides Cholesterol LDL Cholesterol Direct HDL Cholesterol 25-OH Vitamin D Total PTH Intact Urine pH Urine WBC (Auto) Urine Creatinine 47.4 H Urine Total Protein 16 H Fluid Total Protein Vancomycin Trough Rheumatoid Factor Complement C4 Miscellaneous Test Crossmatch 09/17/16 09/17/16 09/17/16 03:45 03:45 04:55 WBC 19.6 H RBC 3.41 L Hgb 8.5 L Hct 26.7 L MCV 78 L MCH 25 L MCHC RDW 19.9 H Plt Count Lymph % (Auto) 9.3 L Roberts % (Auto) Lymph # Roberts # 1.2 H Baso # Seg Neutrophils % 83.9 H Seg Neuts % (Manual) Lymphocytes % (Manual) Monocytes % (Manual) Eosinophils % (Manual) Basophils % (Manual) Nucleated RBC % Seg Neutrophils # 16.4 H Seg Neutrophils # Man Lymphocytes # (Manual) Monocytes # (Manual) Eosinophils # (Manual) Basophils # (Manual) PT INR Fibrinogen dRVVT Confirm Interp Factor V Activity POC ABG pH POC ABG pCO2 POC ABG pO2 ABG pO2 ABG HCO3 ABG Base Excess ABG Hemoglobin Oxyhemoglobin Sodium 146 H Potassium 5.1 H Chloride 110.9 H Carbon Dioxide 16 L BUN 146 H Creatinine 4.0 H Glucose 108 H POC Glucose 133 H Lactic Acid Calcium Ionized Calcium Phosphorus Magnesium 3.00 H Direct Bilirubin AST ALT Alkaline Phosphatase Lactate Dehydrogenase Troponin T C-Reactive Protein Total Protein Albumin Prealbumin Triglycerides Cholesterol LDL Cholesterol Direct HDL Cholesterol 25-OH Vitamin D Total PTH Intact Urine pH Urine WBC (Auto) Urine Creatinine Urine Total Protein Fluid Total Protein Vancomycin Trough Rheumatoid Factor Complement C4 Miscellaneous Test Crossmatch 09/17/16 09/17/16 09/17/16 11:15 17:33 23:47 WBC RBC Hgb Hct MCV MCH MCHC RDW Plt Count Lymph % (Auto) Roberts % (Auto) Lymph # Roberts # Baso # Seg Neutrophils % Seg Neuts % (Manual) Lymphocytes % (Manual) Monocytes % (Manual) Eosinophils % (Manual) Basophils % (Manual) Nucleated RBC % Seg Neutrophils # Seg Neutrophils # Man Lymphocytes # (Manual) Monocytes # (Manual) Eosinophils # (Manual) Basophils # (Manual) PT INR Fibrinogen dRVVT Confirm Interp Factor V Activity POC ABG pH POC ABG pCO2 POC ABG pO2 ABG pO2 ABG HCO3 ABG Base Excess ABG Hemoglobin Oxyhemoglobin Sodium Potassium Chloride Carbon Dioxide BUN Creatinine Glucose POC Glucose 176 H 246 H 148 H Lactic Acid Calcium Ionized Calcium Phosphorus Magnesium Direct Bilirubin AST ALT Alkaline Phosphatase Lactate Dehydrogenase Troponin T C-Reactive Protein Total Protein Albumin Prealbumin Triglycerides Cholesterol LDL Cholesterol Direct HDL Cholesterol 25-OH Vitamin D Total PTH Intact Urine pH Urine WBC (Auto) Urine Creatinine Urine Total Protein Fluid Total Protein Vancomycin Trough Rheumatoid Factor Complement C4 Miscellaneous Test Crossmatch 09/18/16 09/18/16 09/18/16 05:33 08:31 08:31 WBC 18.0 H RBC 3.17 L Hgb 9.0 L Hct 25.7 L MCV MCH MCHC 35 H RDW 20.4 H Plt Count Lymph % (Auto) Roberts % (Auto) Lymph # Roberts # Baso # Seg Neutrophils % Seg Neuts % (Manual) Lymphocytes % (Manual) Monocytes % (Manual) Eosinophils % (Manual) Basophils % (Manual) Nucleated RBC % Seg Neutrophils # Seg Neutrophils # Man Lymphocytes # (Manual) Monocytes # (Manual) Eosinophils # (Manual) Basophils # (Manual) PT INR Fibrinogen dRVVT Confirm Interp Factor V Activity POC ABG pH POC ABG pCO2 POC ABG pO2 ABG pO2 ABG HCO3 ABG Base Excess ABG Hemoglobin Oxyhemoglobin Sodium Potassium Chloride Carbon Dioxide 15 L BUN 124 H Creatinine 3.8 H Glucose POC Glucose 120 H Lactic Acid Calcium 8.1 L Ionized Calcium Phosphorus Magnesium Direct Bilirubin AST ALT Alkaline Phosphatase Lactate Dehydrogenase Troponin T C-Reactive Protein Total Protein Albumin Prealbumin Triglycerides Cholesterol LDL Cholesterol Direct HDL Cholesterol 25-OH Vitamin D Total PTH Intact Urine pH Urine WBC (Auto) Urine Creatinine Urine Total Protein Fluid Total Protein Vancomycin Trough Rheumatoid Factor Complement C4 Miscellaneous Test Crossmatch 09/18/16 09/18/16 09/18/16 12:03 15:34 17:50 WBC RBC Hgb Hct MCV MCH MCHC RDW Plt Count Lymph % (Auto) Roberts % (Auto) Lymph # Roberts # Baso # Seg Neutrophils % Seg Neuts % (Manual) Lymphocytes % (Manual) Monocytes % (Manual) Eosinophils % (Manual) Basophils % (Manual) Nucleated RBC % Seg Neutrophils # Seg Neutrophils # Man Lymphocytes # (Manual) Monocytes # (Manual) Eosinophils # (Manual) Basophils # (Manual) PT INR Fibrinogen dRVVT Confirm Interp Factor V Activity POC ABG pH POC ABG pCO2 25.7 L POC ABG pO2 66 L ABG pO2 ABG HCO3 ABG Base Excess ABG Hemoglobin Oxyhemoglobin Sodium Potassium Chloride Carbon Dioxide BUN Creatinine Glucose POC Glucose 156 H 220 H Lactic Acid Calcium Ionized Calcium Phosphorus Magnesium Direct Bilirubin AST ALT Alkaline Phosphatase Lactate Dehydrogenase Troponin T C-Reactive Protein Total Protein Albumin Prealbumin Triglycerides Cholesterol LDL Cholesterol Direct HDL Cholesterol 25-OH Vitamin D Total PTH Intact Urine pH Urine WBC (Auto) Urine Creatinine Urine Total Protein Fluid Total Protein Vancomycin Trough Rheumatoid Factor Complement C4 Miscellaneous Test Crossmatch 09/19/16 09/19/16 09/19/16 06:21 09:50 09:50 WBC 17.1 H RBC 3.49 L Hgb 9.0 L Hct 28.1 L MCV MCH 26 L MCHC RDW 20.8 H Plt Count Lymph % (Auto) 11.5 L Roberts % (Auto) 7.5 H Lymph # Roberts # 1.3 H Baso # Seg Neutrophils % 79.8 H Seg Neuts % (Manual) Lymphocytes % (Manual) Monocytes % (Manual) Eosinophils % (Manual) Basophils % (Manual) Nucleated RBC % Seg Neutrophils # 13.7 H Seg Neutrophils # Man Lymphocytes # (Manual) Monocytes # (Manual) Eosinophils # (Manual) Basophils # (Manual) PT INR Fibrinogen dRVVT Confirm Interp Factor V Activity POC ABG pH POC ABG pCO2 POC ABG pO2 ABG pO2 ABG HCO3 ABG Base Excess ABG Hemoglobin Oxyhemoglobin Sodium Potassium Chloride 108.6 H Carbon Dioxide 15 L BUN 125 H Creatinine 4.1 H Glucose 124 H POC Glucose 119 H Lactic Acid Calcium Ionized Calcium Phosphorus Magnesium Direct Bilirubin AST ALT Alkaline Phosphatase Lactate Dehydrogenase Troponin T C-Reactive Protein Total Protein Albumin Prealbumin Triglycerides Cholesterol LDL Cholesterol Direct HDL Cholesterol 25-OH Vitamin D Total PTH Intact Urine pH Urine WBC (Auto) Urine Creatinine Urine Total Protein Fluid Total Protein Vancomycin Trough Rheumatoid Factor Complement C4 Miscellaneous Test Crossmatch 09/19/16 09/19/16 09/19/16 11:25 17:53 23:36 WBC RBC Hgb Hct MCV MCH MCHC RDW Plt Count Lymph % (Auto) Roberts % (Auto) Lymph # Roberts # Baso # Seg Neutrophils % Seg Neuts % (Manual) Lymphocytes % (Manual) Monocytes % (Manual) Eosinophils % (Manual) Basophils % (Manual) Nucleated RBC % Seg Neutrophils # Seg Neutrophils # Man Lymphocytes # (Manual) Monocytes # (Manual) Eosinophils # (Manual) Basophils # (Manual) PT INR Fibrinogen dRVVT Confirm Interp Factor V Activity POC ABG pH POC ABG pCO2 POC ABG pO2 ABG pO2 ABG HCO3 ABG Base Excess ABG Hemoglobin Oxyhemoglobin Sodium Potassium Chloride Carbon Dioxide BUN Creatinine Glucose POC Glucose 160 H 245 H 121 H Lactic Acid Calcium Ionized Calcium Phosphorus Magnesium Direct Bilirubin AST ALT Alkaline Phosphatase Lactate Dehydrogenase Troponin T C-Reactive Protein Total Protein Albumin Prealbumin Triglycerides Cholesterol LDL Cholesterol Direct HDL Cholesterol 25-OH Vitamin D Total PTH Intact Urine pH Urine WBC (Auto) Urine Creatinine Urine Total Protein Fluid Total Protein Vancomycin Trough Rheumatoid Factor Complement C4 Miscellaneous Test Crossmatch 09/20/16 09/20/16 09/20/16 04:10 04:10 04:10 WBC 17.0 H RBC 3.21 L Hgb 8.2 L Hct 25.5 L MCV MCH 26 L MCHC RDW 20.9 H Plt Count Lymph % (Auto) Roberts % (Auto) Lymph # Roberts # Baso # Seg Neutrophils % Seg Neuts % (Manual) Lymphocytes % (Manual) Monocytes % (Manual) Eosinophils % (Manual) Basophils % (Manual) Nucleated RBC % Seg Neutrophils # Seg Neutrophils # Man Lymphocytes # (Manual) Monocytes # (Manual) Eosinophils # (Manual) Basophils # (Manual) PT INR Fibrinogen dRVVT Confirm Interp Factor V Activity POC ABG pH POC ABG pCO2 POC ABG pO2 ABG pO2 ABG HCO3 ABG Base Excess ABG Hemoglobin Oxyhemoglobin Sodium Potassium Chloride 111.0 H Carbon Dioxide 16 L BUN 129 H Creatinine 3.7 H Glucose 115 H POC Glucose Lactic Acid Calcium 8.2 L Ionized Calcium Phosphorus Magnesium Direct Bilirubin AST ALT Alkaline Phosphatase Lactate Dehydrogenase Troponin T C-Reactive Protein Total Protein Albumin Prealbumin Triglycerides 243 H Cholesterol LDL Cholesterol Direct HDL Cholesterol 25-OH Vitamin D Total PTH Intact Urine pH Urine WBC (Auto) Urine Creatinine Urine Total Protein Fluid Total Protein Vancomycin Trough Rheumatoid Factor Complement C4 Miscellaneous Test Crossmatch 09/20/16 09/20/16 09/20/16 05:40 11:52 16:50 WBC RBC Hgb Hct MCV MCH MCHC RDW Plt Count Lymph % (Auto) Roberts % (Auto) Lymph # Roberts # Baso # Seg Neutrophils % Seg Neuts % (Manual) Lymphocytes % (Manual) Monocytes % (Manual) Eosinophils % (Manual) Basophils % (Manual) Nucleated RBC % Seg Neutrophils # Seg Neutrophils # Man Lymphocytes # (Manual) Monocytes # (Manual) Eosinophils # (Manual) Basophils # (Manual) PT INR Fibrinogen dRVVT Confirm Interp Factor V Activity POC ABG pH POC ABG pCO2 POC ABG pO2 ABG pO2 ABG HCO3 ABG Base Excess ABG Hemoglobin Oxyhemoglobin Sodium Potassium Chloride Carbon Dioxide BUN Creatinine Glucose POC Glucose 131 H 183 H 236 H Lactic Acid Calcium Ionized Calcium Phosphorus Magnesium Direct Bilirubin AST ALT Alkaline Phosphatase Lactate Dehydrogenase Troponin T C-Reactive Protein Total Protein Albumin Prealbumin Triglycerides Cholesterol LDL Cholesterol Direct HDL Cholesterol 25-OH Vitamin D Total PTH Intact Urine pH Urine WBC (Auto) Urine Creatinine Urine Total Protein Fluid Total Protein Vancomycin Trough Rheumatoid Factor Complement C4 Miscellaneous Test Crossmatch 09/20/16 09/21/16 09/21/16 23:51 03:30 04:44 WBC RBC Hgb Hct MCV MCH MCHC RDW Plt Count Lymph % (Auto) Roberts % (Auto) Lymph # Roberts # Baso # Seg Neutrophils % Seg Neuts % (Manual) Lymphocytes % (Manual) Monocytes % (Manual) Eosinophils % (Manual) Basophils % (Manual) Nucleated RBC % Seg Neutrophils # Seg Neutrophils # Man Lymphocytes # (Manual) Monocytes # (Manual) Eosinophils # (Manual) Basophils # (Manual) PT INR Fibrinogen dRVVT Confirm Interp Factor V Activity POC ABG pH POC ABG pCO2 POC ABG pO2 ABG pO2 ABG HCO3 ABG Base Excess ABG Hemoglobin Oxyhemoglobin Sodium Potassium Chloride Carbon Dioxide BUN Creatinine Glucose POC Glucose 114 H 141 H Lactic Acid Calcium Ionized Calcium Phosphorus Magnesium 2.70 H Direct Bilirubin AST ALT Alkaline Phosphatase Lactate Dehydrogenase Troponin T C-Reactive Protein Total Protein Albumin Prealbumin Triglycerides Cholesterol LDL Cholesterol Direct HDL Cholesterol 25-OH Vitamin D Total PTH Intact Urine pH Urine WBC (Auto) Urine Creatinine Urine Total Protein Fluid Total Protein Vancomycin Trough Rheumatoid Factor Complement C4 Miscellaneous Test Crossmatch 09/21/16 09/21/16 09/21/16 07:45 07:45 10:01 WBC 13.8 H RBC 2.94 L Hgb 7.5 L Hct 23.5 L MCV MCH 26 L MCHC RDW 21.2 H Plt Count Lymph % (Auto) 6.9 L Roberts % (Auto) 9.4 H Lymph # 0.9 L Roberts # 1.3 H Baso # Seg Neutrophils % 83.2 H Seg Neuts % (Manual) Lymphocytes % (Manual) Monocytes % (Manual) Eosinophils % (Manual) Basophils % (Manual) Nucleated RBC % Seg Neutrophils # 11.5 H Seg Neutrophils # Man Lymphocytes # (Manual) Monocytes # (Manual) Eosinophils # (Manual) Basophils # (Manual) PT INR Fibrinogen dRVVT Confirm Interp Factor V Activity POC ABG pH 7.308 L POC ABG pCO2 31.9 L POC ABG pO2 148 H ABG pO2 ABG HCO3 ABG Base Excess ABG Hemoglobin Oxyhemoglobin Sodium 147 H Potassium Chloride 114.2 H Carbon Dioxide 15 L BUN 120 H Creatinine 3.9 H Glucose 156 H POC Glucose Lactic Acid Calcium 8.2 L Ionized Calcium Phosphorus Magnesium Direct Bilirubin AST ALT Alkaline Phosphatase Lactate Dehydrogenase Troponin T C-Reactive Protein Total Protein Albumin Prealbumin Triglycerides Cholesterol LDL Cholesterol Direct HDL Cholesterol 25-OH Vitamin D Total PTH Intact Urine pH Urine WBC (Auto) Urine Creatinine Urine Total Protein Fluid Total Protein Vancomycin Trough Rheumatoid Factor Complement C4 Miscellaneous Test Crossmatch 09/21/16 09/21/16 09/21/16 12:00 12:03 13:00 WBC RBC Hgb Hct MCV MCH MCHC RDW Plt Count Lymph % (Auto) Roberts % (Auto) Lymph # Roberts # Baso # Seg Neutrophils % Seg Neuts % (Manual) Lymphocytes % (Manual) Monocytes % (Manual) Eosinophils % (Manual) Basophils % (Manual) Nucleated RBC % Seg Neutrophils # Seg Neutrophils # Man Lymphocytes # (Manual) Monocytes # (Manual) Eosinophils # (Manual) Basophils # (Manual) PT INR Fibrinogen dRVVT Confirm Interp Factor V Activity POC ABG pH POC ABG pCO2 POC ABG pO2 ABG pO2 ABG HCO3 ABG Base Excess ABG Hemoglobin Oxyhemoglobin Sodium Potassium Chloride Carbon Dioxide BUN Creatinine Glucose POC Glucose 163 H Lactic Acid Calcium Ionized Calcium Phosphorus Magnesium Direct Bilirubin AST ALT Alkaline Phosphatase Lactate Dehydrogenase Troponin T C-Reactive Protein Total Protein Albumin Prealbumin Triglycerides Cholesterol LDL Cholesterol Direct HDL Cholesterol 25-OH Vitamin D Total PTH Intact Urine pH Urine WBC (Auto) Urine Creatinine 54.8 H Urine Total Protein Fluid Total Protein Vancomycin Trough 2.3 L Rheumatoid Factor Complement C4 Miscellaneous Test Crossmatch 09/21/16 09/21/16 09/22/16 16:51 23:17 06:27 WBC RBC Hgb Hct MCV MCH MCHC RDW Plt Count Lymph % (Auto) Roberts % (Auto) Lymph # Roberts # Baso # Seg Neutrophils % Seg Neuts % (Manual) Lymphocytes % (Manual) Monocytes % (Manual) Eosinophils % (Manual) Basophils % (Manual) Nucleated RBC % Seg Neutrophils # Seg Neutrophils # Man Lymphocytes # (Manual) Monocytes # (Manual) Eosinophils # (Manual) Basophils # (Manual) PT INR Fibrinogen dRVVT Confirm Interp Factor V Activity POC ABG pH POC ABG pCO2 POC ABG pO2 ABG pO2 ABG HCO3 ABG Base Excess ABG Hemoglobin Oxyhemoglobin Sodium Potassium Chloride Carbon Dioxide BUN Creatinine Glucose POC Glucose 206 H 114 H 115 H Lactic Acid Calcium Ionized Calcium Phosphorus Magnesium Direct Bilirubin AST ALT Alkaline Phosphatase Lactate Dehydrogenase Troponin T C-Reactive Protein Total Protein Albumin Prealbumin Triglycerides Cholesterol LDL Cholesterol Direct HDL Cholesterol 25-OH Vitamin D Total PTH Intact Urine pH Urine WBC (Auto) Urine Creatinine Urine Total Protein Fluid Total Protein Vancomycin Trough Rheumatoid Factor Complement C4 Miscellaneous Test Crossmatch 09/22/16 09/22/16 09/22/16 07:50 07:50 12:00 WBC 17.8 H RBC 3.04 L Hgb 8.0 L Hct 24.7 L MCV MCH 26 L MCHC RDW 21.6 H Plt Count Lymph % (Auto) Roberts % (Auto) Lymph # Roberts # Baso # Seg Neutrophils % Seg Neuts % (Manual) Lymphocytes % (Manual) Monocytes % (Manual) Eosinophils % (Manual) Basophils % (Manual) Nucleated RBC % Seg Neutrophils # Seg Neutrophils # Man Lymphocytes # (Manual) Monocytes # (Manual) Eosinophils # (Manual) Basophils # (Manual) PT INR Fibrinogen dRVVT Confirm Interp Factor V Activity POC ABG pH POC ABG pCO2 POC ABG pO2 ABG pO2 ABG HCO3 ABG Base Excess ABG Hemoglobin Oxyhemoglobin Sodium 150 H Potassium Chloride 118.2 H Carbon Dioxide 14 L BUN 111 H Creatinine 3.7 H Glucose 157 H POC Glucose 183 H Lactic Acid Calcium Ionized Calcium Phosphorus Magnesium Direct Bilirubin AST ALT Alkaline Phosphatase Lactate Dehydrogenase Troponin T C-Reactive Protein Total Protein Albumin Prealbumin Triglycerides Cholesterol LDL Cholesterol Direct HDL Cholesterol 25-OH Vitamin D Total PTH Intact Urine pH Urine WBC (Auto) Urine Creatinine Urine Total Protein Fluid Total Protein Vancomycin Trough Rheumatoid Factor Complement C4 Miscellaneous Test Crossmatch 09/22/16 09/22/16 09/23/16 17:29 23:10 05:00 WBC 19.2 H RBC 3.13 L Hgb 8.0 L Hct 25.2 L MCV MCH 26 L MCHC RDW 22.1 H Plt Count Lymph % (Auto) Roberts % (Auto) Lymph # Roberts # Baso # Seg Neutrophils % Seg Neuts % (Manual) 92.0 H Lymphocytes % (Manual) 3.0 L Monocytes % (Manual) Eosinophils % (Manual) Basophils % (Manual) Nucleated RBC % Seg Neutrophils # Seg Neutrophils # Man 17.7 H Lymphocytes # (Manual) 0.6 L Monocytes # (Manual) Eosinophils # (Manual) Basophils # (Manual) PT INR Fibrinogen dRVVT Confirm Interp Factor V Activity POC ABG pH POC ABG pCO2 POC ABG pO2 ABG pO2 ABG HCO3 ABG Base Excess ABG Hemoglobin Oxyhemoglobin Sodium Potassium Chloride Carbon Dioxide BUN Creatinine Glucose POC Glucose 197 H 169 H Lactic Acid Calcium Ionized Calcium Phosphorus Magnesium Direct Bilirubin AST ALT Alkaline Phosphatase Lactate Dehydrogenase Troponin T C-Reactive Protein Total Protein Albumin Prealbumin Triglycerides Cholesterol LDL Cholesterol Direct HDL Cholesterol 25-OH Vitamin D Total PTH Intact Urine pH Urine WBC (Auto) Urine Creatinine Urine Total Protein Fluid Total Protein Vancomycin Trough Rheumatoid Factor Complement C4 Miscellaneous Test Crossmatch 09/23/16 09/23/16 09/23/16 05:00 05:00 05:10 WBC RBC Hgb Hct MCV MCH MCHC RDW Plt Count Lymph % (Auto) Roberts % (Auto) Lymph # Roberts # Baso # Seg Neutrophils % Seg Neuts % (Manual) Lymphocytes % (Manual) Monocytes % (Manual) Eosinophils % (Manual) Basophils % (Manual) Nucleated RBC % Seg Neutrophils # Seg Neutrophils # Man Lymphocytes # (Manual) Monocytes # (Manual) Eosinophils # (Manual) Basophils # (Manual) PT INR Fibrinogen dRVVT Confirm Interp Factor V Activity POC ABG pH POC ABG pCO2 POC ABG pO2 ABG pO2 ABG HCO3 ABG Base Excess ABG Hemoglobin Oxyhemoglobin Sodium 147 H Potassium 3.2 L Chloride 115.7 H Carbon Dioxide 13 L BUN 111 H Creatinine 3.8 H Glucose 194 H POC Glucose 188 H Lactic Acid Calcium 7.3 L D Ionized Calcium Phosphorus Magnesium Direct Bilirubin AST ALT Alkaline Phosphatase Lactate Dehydrogenase Troponin T C-Reactive Protein 3.20 H Total Protein Albumin Prealbumin Triglycerides Cholesterol LDL Cholesterol Direct HDL Cholesterol 25-OH Vitamin D Total PTH Intact Urine pH Urine WBC (Auto) Urine Creatinine Urine Total Protein Fluid Total Protein Vancomycin Trough Rheumatoid Factor Complement C4 Miscellaneous Test Crossmatch 09/23/16 09/23/16 09/23/16 11:37 12:29 18:01 WBC RBC Hgb Hct MCV MCH MCHC RDW Plt Count Lymph % (Auto) Roberts % (Auto) Lymph # Roberts # Baso # Seg Neutrophils % Seg Neuts % (Manual) Lymphocytes % (Manual) Monocytes % (Manual) Eosinophils % (Manual) Basophils % (Manual) Nucleated RBC % Seg Neutrophils # Seg Neutrophils # Man Lymphocytes # (Manual) Monocytes # (Manual) Eosinophils # (Manual) Basophils # (Manual) PT INR Fibrinogen dRVVT Confirm Interp Factor V Activity POC ABG pH POC ABG pCO2 18.9 L POC ABG pO2 143 H ABG pO2 ABG HCO3 ABG Base Excess ABG Hemoglobin Oxyhemoglobin Sodium Potassium Chloride Carbon Dioxide BUN Creatinine Glucose POC Glucose 153 H 108 H Lactic Acid Calcium Ionized Calcium Phosphorus Magnesium Direct Bilirubin AST ALT Alkaline Phosphatase Lactate Dehydrogenase Troponin T C-Reactive Protein Total Protein Albumin Prealbumin Triglycerides Cholesterol LDL Cholesterol Direct HDL Cholesterol 25-OH Vitamin D Total PTH Intact Urine pH Urine WBC (Auto) Urine Creatinine Urine Total Protein Fluid Total Protein Vancomycin Trough Rheumatoid Factor Complement C4 Miscellaneous Test Crossmatch 09/23/16 09/23/16 09/24/16 21:19 23:43 05:16 WBC RBC Hgb Hct MCV MCH MCHC RDW Plt Count Lymph % (Auto) Roberts % (Auto) Lymph # Roberts # Baso # Seg Neutrophils % Seg Neuts % (Manual) Lymphocytes % (Manual) Monocytes % (Manual) Eosinophils % (Manual) Basophils % (Manual) Nucleated RBC % Seg Neutrophils # Seg Neutrophils # Man Lymphocytes # (Manual) Monocytes # (Manual) Eosinophils # (Manual) Basophils # (Manual) PT INR Fibrinogen dRVVT Confirm Interp Factor V Activity POC ABG pH POC ABG pCO2 17.3 L POC ABG pO2 112 H ABG pO2 ABG HCO3 ABG Base Excess ABG Hemoglobin Oxyhemoglobin Sodium Potassium Chloride Carbon Dioxide BUN Creatinine Glucose POC Glucose 143 H 164 H Lactic Acid Calcium Ionized Calcium Phosphorus Magnesium Direct Bilirubin AST ALT Alkaline Phosphatase Lactate Dehydrogenase Troponin T C-Reactive Protein Total Protein Albumin Prealbumin Triglycerides Cholesterol LDL Cholesterol Direct HDL Cholesterol 25-OH Vitamin D Total PTH Intact Urine pH Urine WBC (Auto) Urine Creatinine Urine Total Protein Fluid Total Protein Vancomycin Trough Rheumatoid Factor Complement C4 Miscellaneous Test Crossmatch 09/24/16 09/24/16 09/24/16 05:21 11:58 17:06 WBC RBC Hgb Hct MCV MCH MCHC RDW Plt Count Lymph % (Auto) Roberts % (Auto) Lymph # Roberts # Baso # Seg Neutrophils % Seg Neuts % (Manual) Lymphocytes % (Manual) Monocytes % (Manual) Eosinophils % (Manual) Basophils % (Manual) Nucleated RBC % Seg Neutrophils # Seg Neutrophils # Man Lymphocytes # (Manual) Monocytes # (Manual) Eosinophils # (Manual) Basophils # (Manual) PT INR Fibrinogen dRVVT Confirm Interp Factor V Activity POC ABG pH POC ABG pCO2 POC ABG pO2 ABG pO2 ABG HCO3 ABG Base Excess ABG Hemoglobin Oxyhemoglobin Sodium Potassium Chloride Carbon Dioxide 10 L BUN 103 H Creatinine 4.3 H Glucose 163 H POC Glucose 173 H 167 H Lactic Acid Calcium 6.5 L Ionized Calcium Phosphorus Magnesium Direct Bilirubin AST ALT Alkaline Phosphatase Lactate Dehydrogenase Troponin T C-Reactive Protein Total Protein Albumin Prealbumin Triglycerides Cholesterol LDL Cholesterol Direct HDL Cholesterol 25-OH Vitamin D Total PTH Intact Urine pH Urine WBC (Auto) Urine Creatinine Urine Total Protein Fluid Total Protein Vancomycin Trough Rheumatoid Factor Complement C4 Miscellaneous Test Crossmatch 09/24/16 09/24/16 09/24/16 20:15 21:02 23:48 WBC RBC Hgb Hct MCV MCH MCHC RDW Plt Count Lymph % (Auto) Roberts % (Auto) Lymph # Roberts # Baso # Seg Neutrophils % Seg Neuts % (Manual) Lymphocytes % (Manual) Monocytes % (Manual) Eosinophils % (Manual) Basophils % (Manual) Nucleated RBC % Seg Neutrophils # Seg Neutrophils # Man Lymphocytes # (Manual) Monocytes # (Manual) Eosinophils # (Manual) Basophils # (Manual) PT INR Fibrinogen dRVVT Confirm Interp Factor V Activity POC ABG pH 7.288 L POC ABG pCO2 30.2 L 21.5 L POC ABG pO2 32 L 39 L ABG pO2 ABG HCO3 ABG Base Excess ABG Hemoglobin Oxyhemoglobin Sodium Potassium Chloride Carbon Dioxide BUN Creatinine Glucose POC Glucose 109 H Lactic Acid Calcium Ionized Calcium Phosphorus Magnesium Direct Bilirubin AST ALT Alkaline Phosphatase Lactate Dehydrogenase Troponin T C-Reactive Protein Total Protein Albumin Prealbumin Triglycerides Cholesterol LDL Cholesterol Direct HDL Cholesterol 25-OH Vitamin D Total PTH Intact Urine pH Urine WBC (Auto) Urine Creatinine Urine Total Protein Fluid Total Protein Vancomycin Trough Rheumatoid Factor Complement C4 Miscellaneous Test Crossmatch 09/25/16 09/25/16 09/25/16 04:20 04:20 04:20 WBC RBC 2.58 L Hgb 7.0 L Hct 21.0 L MCV MCH 27 L MCHC RDW 23.8 H Plt Count Lymph % (Auto) Roberts % (Auto) Lymph # Roberts # Baso # Seg Neutrophils % Seg Neuts % (Manual) Lymphocytes % (Manual) 12.0 L Monocytes % (Manual) Eosinophils % (Manual) 7.0 H Basophils % (Manual) 2.0 H Nucleated RBC % Seg Neutrophils # Seg Neutrophils # Man Lymphocytes # (Manual) 0.9 L Monocytes # (Manual) Eosinophils # (Manual) 0.5 H Basophils # (Manual) PT INR Fibrinogen dRVVT Confirm Interp Factor V Activity POC ABG pH POC ABG pCO2 POC ABG pO2 ABG pO2 ABG HCO3 ABG Base Excess ABG Hemoglobin Oxyhemoglobin Sodium Potassium Chloride Carbon Dioxide 15 L BUN 72 H Creatinine 3.8 H Glucose POC Glucose Lactic Acid Calcium 6.0 L Ionized Calcium Phosphorus 4.60 H Magnesium 1.60 L Direct Bilirubin AST ALT Alkaline Phosphatase Lactate Dehydrogenase Troponin T C-Reactive Protein Total Protein Albumin Prealbumin Triglycerides Cholesterol LDL Cholesterol Direct HDL Cholesterol 25-OH Vitamin D Total PTH Intact Urine pH Urine WBC (Auto) Urine Creatinine Urine Total Protein Fluid Total Protein Vancomycin Trough Rheumatoid Factor Complement C4 Miscellaneous Test Crossmatch 09/25/16 09/25/16 09/25/16 04:57 08:02 10:30 WBC RBC Hgb Hct MCV MCH MCHC RDW Plt Count Lymph % (Auto) Roberts % (Auto) Lymph # Roberts # Baso # Seg Neutrophils % Seg Neuts % (Manual) Lymphocytes % (Manual) Monocytes % (Manual) Eosinophils % (Manual) Basophils % (Manual) Nucleated RBC % Seg Neutrophils # Seg Neutrophils # Man Lymphocytes # (Manual) Monocytes # (Manual) Eosinophils # (Manual) Basophils # (Manual) PT INR Fibrinogen dRVVT Confirm Interp Factor V Activity POC ABG pH POC ABG pCO2 24.7 L POC ABG pO2 152 H ABG pO2 ABG HCO3 ABG Base Excess ABG Hemoglobin Oxyhemoglobin Sodium Potassium Chloride Carbon Dioxide BUN Creatinine Glucose POC Glucose 113 H Lactic Acid Calcium Ionized Calcium Phosphorus Magnesium Direct Bilirubin AST ALT Alkaline Phosphatase Lactate Dehydrogenase Troponin T C-Reactive Protein Total Protein Albumin Prealbumin Triglycerides Cholesterol LDL Cholesterol Direct HDL Cholesterol 25-OH Vitamin D Total PTH Intact Urine pH Urine WBC (Auto) Urine Creatinine Urine Total Protein Fluid Total Protein Vancomycin Trough Rheumatoid Factor Complement C4 Miscellaneous Test Crossmatch See Detail 09/25/16 09/25/16 09/25/16 12:05 17:44 23:47 WBC RBC Hgb Hct MCV MCH MCHC RDW Plt Count Lymph % (Auto) Roberts % (Auto) Lymph # Roberts # Baso # Seg Neutrophils % Seg Neuts % (Manual) Lymphocytes % (Manual) Monocytes % (Manual) Eosinophils % (Manual) Basophils % (Manual) Nucleated RBC % Seg Neutrophils # Seg Neutrophils # Man Lymphocytes # (Manual) Monocytes # (Manual) Eosinophils # (Manual) Basophils # (Manual) PT INR Fibrinogen dRVVT Confirm Interp Factor V Activity POC ABG pH POC ABG pCO2 POC ABG pO2 ABG pO2 ABG HCO3 ABG Base Excess ABG Hemoglobin Oxyhemoglobin Sodium Potassium Chloride Carbon Dioxide BUN Creatinine Glucose POC Glucose 117 H 119 H 150 H Lactic Acid Calcium Ionized Calcium Phosphorus Magnesium Direct Bilirubin AST ALT Alkaline Phosphatase Lactate Dehydrogenase Troponin T C-Reactive Protein Total Protein Albumin Prealbumin Triglycerides Cholesterol LDL Cholesterol Direct HDL Cholesterol 25-OH Vitamin D Total PTH Intact Urine pH Urine WBC (Auto) Urine Creatinine Urine Total Protein Fluid Total Protein Vancomycin Trough Rheumatoid Factor Complement C4 Miscellaneous Test Crossmatch 09/26/16 09/26/16 09/26/16 04:25 04:25 04:25 WBC RBC 2.65 L Hgb 7.4 L Hct 21.6 L MCV MCH MCHC RDW 22.5 H Plt Count Lymph % (Auto) Roberts % (Auto) Lymph # Roberts # Baso # Seg Neutrophils % Seg Neuts % (Manual) Lymphocytes % (Manual) 6.0 L Monocytes % (Manual) Eosinophils % (Manual) 11.0 H Basophils % (Manual) Nucleated RBC % Seg Neutrophils # Seg Neutrophils # Man Lymphocytes # (Manual) 0.4 L Monocytes # (Manual) Eosinophils # (Manual) 0.6 H Basophils # (Manual) PT INR Fibrinogen dRVVT Confirm Interp Factor V Activity POC ABG pH POC ABG pCO2 POC ABG pO2 ABG pO2 ABG HCO3 ABG Base Excess ABG Hemoglobin Oxyhemoglobin Sodium Potassium Chloride 97.0 L Carbon Dioxide 19 L BUN 43 H Creatinine 2.6 H Glucose 130 H POC Glucose Lactic Acid 4.40 H* Calcium 6.7 L Ionized Calcium Phosphorus Magnesium Direct Bilirubin AST ALT Alkaline Phosphatase Lactate Dehydrogenase Troponin T C-Reactive Protein Total Protein Albumin Prealbumin Triglycerides Cholesterol LDL Cholesterol Direct HDL Cholesterol 25-OH Vitamin D Total PTH Intact Urine pH Urine WBC (Auto) Urine Creatinine Urine Total Protein Fluid Total Protein Vancomycin Trough Rheumatoid Factor Complement C4 Miscellaneous Test Crossmatch 09/26/16 09/26/16 09/26/16 05:20 11:44 12:12 WBC RBC Hgb Hct MCV MCH MCHC RDW Plt Count Lymph % (Auto) Roberts % (Auto) Lymph # Roberts # Baso # Seg Neutrophils % Seg Neuts % (Manual) Lymphocytes % (Manual) Monocytes % (Manual) Eosinophils % (Manual) Basophils % (Manual) Nucleated RBC % Seg Neutrophils # Seg Neutrophils # Man Lymphocytes # (Manual) Monocytes # (Manual) Eosinophils # (Manual) Basophils # (Manual) PT INR Fibrinogen dRVVT Confirm Interp Factor V Activity POC ABG pH POC ABG pCO2 27.0 L POC ABG pO2 69 L ABG pO2 ABG HCO3 ABG Base Excess ABG Hemoglobin Oxyhemoglobin Sodium Potassium Chloride Carbon Dioxide BUN Creatinine Glucose POC Glucose 121 H 128 H Lactic Acid Calcium Ionized Calcium Phosphorus Magnesium Direct Bilirubin AST ALT Alkaline Phosphatase Lactate Dehydrogenase Troponin T C-Reactive Protein Total Protein Albumin Prealbumin Triglycerides Cholesterol LDL Cholesterol Direct HDL Cholesterol 25-OH Vitamin D Total PTH Intact Urine pH Urine WBC (Auto) Urine Creatinine Urine Total Protein Fluid Total Protein Vancomycin Trough Rheumatoid Factor Complement C4 Miscellaneous Test Crossmatch 09/26/16 09/26/16 09/27/16 18:31 23:40 08:20 WBC RBC Hgb Hct MCV MCH MCHC RDW Plt Count Lymph % (Auto) Roberts % (Auto) Lymph # Roberts # Baso # Seg Neutrophils % Seg Neuts % (Manual) Lymphocytes % (Manual) Monocytes % (Manual) Eosinophils % (Manual) Basophils % (Manual) Nucleated RBC % Seg Neutrophils # Seg Neutrophils # Man Lymphocytes # (Manual) Monocytes # (Manual) Eosinophils # (Manual) Basophils # (Manual) PT INR Fibrinogen dRVVT Confirm Interp Factor V Activity POC ABG pH POC ABG pCO2 POC ABG pO2 ABG pO2 ABG HCO3 ABG Base Excess ABG Hemoglobin Oxyhemoglobin Sodium Potassium Chloride Carbon Dioxide BUN Creatinine Glucose POC Glucose 120 H 133 H Lactic Acid 4.10 H* Calcium Ionized Calcium Phosphorus Magnesium Direct Bilirubin AST ALT Alkaline Phosphatase Lactate Dehydrogenase Troponin T C-Reactive Protein Total Protein Albumin Prealbumin Triglycerides Cholesterol LDL Cholesterol Direct HDL Cholesterol 25-OH Vitamin D Total PTH Intact Urine pH Urine WBC (Auto) Urine Creatinine Urine Total Protein Fluid Total Protein Vancomycin Trough Rheumatoid Factor Complement C4 Miscellaneous Test Crossmatch 09/27/16 09/27/16 09/27/16 11:23 15:00 18:15 WBC RBC Hgb Hct MCV MCH MCHC RDW Plt Count Lymph % (Auto) Roberts % (Auto) Lymph # Roberts # Baso # Seg Neutrophils % Seg Neuts % (Manual) Lymphocytes % (Manual) Monocytes % (Manual) Eosinophils % (Manual) Basophils % (Manual) Nucleated RBC % Seg Neutrophils # Seg Neutrophils # Man Lymphocytes # (Manual) Monocytes # (Manual) Eosinophils # (Manual) Basophils # (Manual) PT INR Fibrinogen dRVVT Confirm Interp Factor V Activity POC ABG pH 7.459 H POC ABG pCO2 27.1 L POC ABG pO2 140 H ABG pO2 ABG HCO3 ABG Base Excess ABG Hemoglobin Oxyhemoglobin Sodium Potassium Chloride Carbon Dioxide BUN Creatinine Glucose POC Glucose 114 H 127 H Lactic Acid Calcium Ionized Calcium Phosphorus Magnesium Direct Bilirubin AST ALT Alkaline Phosphatase Lactate Dehydrogenase Troponin T C-Reactive Protein Total Protein Albumin Prealbumin Triglycerides Cholesterol LDL Cholesterol Direct HDL Cholesterol 25-OH Vitamin D Total PTH Intact Urine pH Urine WBC (Auto) Urine Creatinine Urine Total Protein Fluid Total Protein Vancomycin Trough Rheumatoid Factor Complement C4 Miscellaneous Test Crossmatch 09/27/16 09/27/16 09/28/16 Unknown Unknown 03:45 WBC RBC 2.49 L Hgb 6.8 L Hct 20.7 L MCV MCH 27 L MCHC RDW 22.1 H Plt Count Lymph % (Auto) Roberts % (Auto) Lymph # Roberts # Baso # Seg Neutrophils % Seg Neuts % (Manual) 32.0 L Lymphocytes % (Manual) 12.0 L Monocytes % (Manual) 11.0 H Eosinophils % (Manual) 10.0 H Basophils % (Manual) Nucleated RBC % Seg Neutrophils # Seg Neutrophils # Man Lymphocytes # (Manual) 1.0 L Monocytes # (Manual) 0.9 H Eosinophils # (Manual) 0.8 H Basophils # (Manual) PT INR Fibrinogen dRVVT Confirm Interp Factor V Activity POC ABG pH POC ABG pCO2 POC ABG pO2 ABG pO2 ABG HCO3 ABG Base Excess ABG Hemoglobin Oxyhemoglobin Sodium 135 L 135 L Potassium 3.5 L Chloride 93.6 L 94.4 L Carbon Dioxide 17 L 21 L BUN 45 H 28 H Creatinine 3.3 H 2.5 H Glucose 106 H POC Glucose Lactic Acid Calcium 7.3 L 7.1 L Ionized Calcium Phosphorus Magnesium Direct Bilirubin AST ALT Alkaline Phosphatase Lactate Dehydrogenase Troponin T C-Reactive Protein Total Protein Albumin Prealbumin Triglycerides Cholesterol LDL Cholesterol Direct HDL Cholesterol 25-OH Vitamin D Total PTH Intact Urine pH Urine WBC (Auto) Urine Creatinine Urine Total Protein Fluid Total Protein Vancomycin Trough Rheumatoid Factor Complement C4 Miscellaneous Test Crossmatch 09/28/16 09/28/16 09/28/16 03:45 07:25 11:58 WBC 13.3 H RBC 3.01 L Hgb 8.4 L Hct 25.0 L MCV MCH MCHC RDW 20.5 H Plt Count 128 L Lymph % (Auto) Roberts % (Auto) Lymph # Roberts # Baso # Seg Neutrophils % Seg Neuts % (Manual) Lymphocytes % (Manual) 7.0 L Monocytes % (Manual) Eosinophils % (Manual) 6.0 H Basophils % (Manual) Nucleated RBC % Seg Neutrophils # Seg Neutrophils # Man Lymphocytes # (Manual) 0.9 L Monocytes # (Manual) Eosinophils # (Manual) 0.8 H Basophils # (Manual) PT INR Fibrinogen dRVVT Confirm Interp Factor V Activity POC ABG pH POC ABG pCO2 POC ABG pO2 ABG pO2 ABG HCO3 ABG Base Excess ABG Hemoglobin Oxyhemoglobin Sodium Potassium Chloride Carbon Dioxide BUN Creatinine Glucose POC Glucose 121 H Lactic Acid 4.50 H* Calcium Ionized Calcium Phosphorus Magnesium Direct Bilirubin AST ALT Alkaline Phosphatase Lactate Dehydrogenase Troponin T C-Reactive Protein Total Protein Albumin Prealbumin Triglycerides Cholesterol LDL Cholesterol Direct HDL Cholesterol 25-OH Vitamin D Total PTH Intact Urine pH Urine WBC (Auto) Urine Creatinine Urine Total Protein Fluid Total Protein Vancomycin Trough Rheumatoid Factor Complement C4 Miscellaneous Test Crossmatch 09/29/16 09/29/16 09/29/16 06:45 06:45 06:45 WBC 14.9 H RBC 2.74 L Hgb 7.6 L Hct 23.2 L MCV MCH MCHC RDW 20.5 H Plt Count 81 L Lymph % (Auto) Roberts % (Auto) Lymph # Roberts # Baso # Seg Neutrophils % Seg Neuts % (Manual) 81.0 H Lymphocytes % (Manual) 4.0 L Monocytes % (Manual) Eosinophils % (Manual) Basophils % (Manual) Nucleated RBC % Seg Neutrophils # Seg Neutrophils # Man 12.1 H Lymphocytes # (Manual) 0.6 L Monocytes # (Manual) Eosinophils # (Manual) Basophils # (Manual) PT INR Fibrinogen dRVVT Confirm Interp Factor V Activity POC ABG pH POC ABG pCO2 POC ABG pO2 ABG pO2 ABG HCO3 ABG Base Excess ABG Hemoglobin Oxyhemoglobin Sodium 133 L Potassium 3.4 L Chloride 92.5 L Carbon Dioxide 21 L BUN 33 H Creatinine 3.0 H Glucose POC Glucose Lactic Acid Calcium 6.6 L Ionized Calcium Phosphorus Magnesium 1.40 L Direct Bilirubin 0.9 H AST ALT Alkaline Phosphatase Lactate Dehydrogenase Troponin T C-Reactive Protein Total Protein 4.3 L Albumin 1.3 L Prealbumin Triglycerides Cholesterol LDL Cholesterol Direct HDL Cholesterol 25-OH Vitamin D Total PTH Intact Urine pH Urine WBC (Auto) Urine Creatinine Urine Total Protein Fluid Total Protein Vancomycin Trough Rheumatoid Factor Complement C4 Miscellaneous Test Crossmatch 09/29/16 09/29/16 09/30/16 17:52 20:12 00:07 WBC RBC Hgb Hct MCV MCH MCHC RDW Plt Count Lymph % (Auto) Roberts % (Auto) Lymph # Roberts # Baso # Seg Neutrophils % Seg Neuts % (Manual) Lymphocytes % (Manual) Monocytes % (Manual) Eosinophils % (Manual) Basophils % (Manual) Nucleated RBC % Seg Neutrophils # Seg Neutrophils # Man Lymphocytes # (Manual) Monocytes # (Manual) Eosinophils # (Manual) Basophils # (Manual) PT INR Fibrinogen dRVVT Confirm Interp Factor V Activity POC ABG pH POC ABG pCO2 POC ABG pO2 ABG pO2 ABG HCO3 ABG Base Excess ABG Hemoglobin Oxyhemoglobin Sodium Potassium Chloride Carbon Dioxide BUN Creatinine Glucose POC Glucose 50 L 51 L Lactic Acid Calcium Ionized Calcium Phosphorus Magnesium Direct Bilirubin AST ALT Alkaline Phosphatase Lactate Dehydrogenase Troponin T 0.204 H* C-Reactive Protein Total Protein Albumin Prealbumin Triglycerides Cholesterol 31 L LDL Cholesterol Direct 4 L HDL Cholesterol 3 L 25-OH Vitamin D Total PTH Intact Urine pH Urine WBC (Auto) Urine Creatinine Urine Total Protein Fluid Total Protein Vancomycin Trough Rheumatoid Factor Complement C4 Miscellaneous Test Crossmatch 09/30/16 09/30/16 09/30/16 01:30 05:15 06:10 WBC RBC Hgb Hct MCV MCH MCHC RDW Plt Count Lymph % (Auto) Roberts % (Auto) Lymph # Roberts # Baso # Seg Neutrophils % Seg Neuts % (Manual) Lymphocytes % (Manual) Monocytes % (Manual) Eosinophils % (Manual) Basophils % (Manual) Nucleated RBC % Seg Neutrophils # Seg Neutrophils # Man Lymphocytes # (Manual) Monocytes # (Manual) Eosinophils # (Manual) Basophils # (Manual) PT INR Fibrinogen dRVVT Confirm Interp Factor V Activity POC ABG pH POC ABG pCO2 POC ABG pO2 ABG pO2 ABG HCO3 ABG Base Excess ABG Hemoglobin Oxyhemoglobin Sodium 133 L Potassium 3.2 L Chloride 93.2 L Carbon Dioxide 19 L BUN 36 H Creatinine 3.2 H Glucose 104 H POC Glucose 167 H 146 H Lactic Acid Calcium 6.4 L Ionized Calcium Phosphorus Magnesium 1.60 L Direct Bilirubin AST ALT Alkaline Phosphatase Lactate Dehydrogenase Troponin T C-Reactive Protein Total Protein Albumin Prealbumin Triglycerides Cholesterol LDL Cholesterol Direct HDL Cholesterol 25-OH Vitamin D Total PTH Intact Urine pH Urine WBC (Auto) Urine Creatinine Urine Total Protein Fluid Total Protein Vancomycin Trough Rheumatoid Factor Complement C4 Miscellaneous Test Crossmatch 09/30/16 09/30/16 09/30/16 11:26 13:39 18:38 WBC RBC Hgb Hct MCV MCH MCHC RDW Plt Count Lymph % (Auto) Roberts % (Auto) Lymph # Roberts # Baso # Seg Neutrophils % Seg Neuts % (Manual) Lymphocytes % (Manual) Monocytes % (Manual) Eosinophils % (Manual) Basophils % (Manual) Nucleated RBC % Seg Neutrophils # Seg Neutrophils # Man Lymphocytes # (Manual) Monocytes # (Manual) Eosinophils # (Manual) Basophils # (Manual) PT INR Fibrinogen dRVVT Confirm Interp Factor V Activity POC ABG pH 7.479 H POC ABG pCO2 29.8 L POC ABG pO2 117 H ABG pO2 ABG HCO3 ABG Base Excess ABG Hemoglobin Oxyhemoglobin Sodium Potassium Chloride Carbon Dioxide BUN Creatinine Glucose POC Glucose 140 H 122 H Lactic Acid Calcium Ionized Calcium Phosphorus Magnesium Direct Bilirubin AST ALT Alkaline Phosphatase Lactate Dehydrogenase Troponin T C-Reactive Protein Total Protein Albumin Prealbumin Triglycerides Cholesterol LDL Cholesterol Direct HDL Cholesterol 25-OH Vitamin D Total PTH Intact Urine pH Urine WBC (Auto) Urine Creatinine Urine Total Protein Fluid Total Protein Vancomycin Trough Rheumatoid Factor Complement C4 Miscellaneous Test Crossmatch 10/01/16 10/01/16 10/01/16 06:00 06:00 12:37 WBC 12.6 H RBC 2.75 L Hgb 7.3 L Hct 23.3 L MCV MCH 27 L MCHC RDW 20.6 H Plt Count 72 L Lymph % (Auto) Roberts % (Auto) Lymph # Roberts # Baso # Seg Neutrophils % Seg Neuts % (Manual) 31.0 L Lymphocytes % (Manual) 8.0 L Monocytes % (Manual) Eosinophils % (Manual) Basophils % (Manual) Nucleated RBC % 3.0 H Seg Neutrophils # Seg Neutrophils # Man Lymphocytes # (Manual) 1.0 L Monocytes # (Manual) Eosinophils # (Manual) Basophils # (Manual) PT INR Fibrinogen dRVVT Confirm Interp Factor V Activity POC ABG pH POC ABG pCO2 POC ABG pO2 ABG pO2 ABG HCO3 ABG Base Excess ABG Hemoglobin Oxyhemoglobin Sodium 127 L Potassium Chloride 86.8 L Carbon Dioxide 20 L BUN 42 H Creatinine 3.5 H Glucose POC Glucose 65 L Lactic Acid Calcium 7.0 L Ionized Calcium Phosphorus Magnesium Direct Bilirubin AST ALT Alkaline Phosphatase Lactate Dehydrogenase Troponin T C-Reactive Protein Total Protein Albumin Prealbumin Triglycerides Cholesterol LDL Cholesterol Direct HDL Cholesterol 25-OH Vitamin D Total PTH Intact Urine pH Urine WBC (Auto) Urine Creatinine Urine Total Protein Fluid Total Protein Vancomycin Trough Rheumatoid Factor Complement C4 Miscellaneous Test Crossmatch 10/01/16 10/01/16 10/02/16 17:39 23:32 00:59 WBC RBC Hgb Hct MCV MCH MCHC RDW Plt Count Lymph % (Auto) Roberts % (Auto) Lymph # Roberts # Baso # Seg Neutrophils % Seg Neuts % (Manual) Lymphocytes % (Manual) Monocytes % (Manual) Eosinophils % (Manual) Basophils % (Manual) Nucleated RBC % Seg Neutrophils # Seg Neutrophils # Man Lymphocytes # (Manual) Monocytes # (Manual) Eosinophils # (Manual) Basophils # (Manual) PT INR Fibrinogen dRVVT Confirm Interp Factor V Activity POC ABG pH POC ABG pCO2 POC ABG pO2 ABG pO2 ABG HCO3 ABG Base Excess ABG Hemoglobin Oxyhemoglobin Sodium Potassium Chloride Carbon Dioxide BUN Creatinine Glucose POC Glucose 107 H 52 L 145 H Lactic Acid Calcium Ionized Calcium Phosphorus Magnesium Direct Bilirubin AST ALT Alkaline Phosphatase Lactate Dehydrogenase Troponin T C-Reactive Protein Total Protein Albumin Prealbumin Triglycerides Cholesterol LDL Cholesterol Direct HDL Cholesterol 25-OH Vitamin D Total PTH Intact Urine pH Urine WBC (Auto) Urine Creatinine Urine Total Protein Fluid Total Protein Vancomycin Trough Rheumatoid Factor Complement C4 Miscellaneous Test Crossmatch 10/02/16 10/02/16 10/02/16 10:30 10:50 10:50 WBC 14.7 H RBC 2.76 L Hgb 7.4 L Hct 23.6 L MCV MCH 27 L MCHC RDW 20.2 H Plt Count 79 L Lymph % (Auto) Roberts % (Auto) Lymph # Roberts # Baso # Seg Neutrophils % Seg Neuts % (Manual) 86.0 H Lymphocytes % (Manual) 6.0 L Monocytes % (Manual) Eosinophils % (Manual) Basophils % (Manual) Nucleated RBC % Seg Neutrophils # Seg Neutrophils # Man 12.6 H Lymphocytes # (Manual) 0.9 L Monocytes # (Manual) Eosinophils # (Manual) Basophils # (Manual) PT INR Fibrinogen dRVVT Confirm Interp Factor V Activity POC ABG pH 7.486 H POC ABG pCO2 30.1 L POC ABG pO2 108 H ABG pO2 ABG HCO3 ABG Base Excess ABG Hemoglobin Oxyhemoglobin Sodium 131 L Potassium 3.4 L Chloride 89.9 L Carbon Dioxide BUN 26 H Creatinine 2.6 H Glucose POC Glucose Lactic Acid Calcium 7.0 L Ionized Calcium Phosphorus Magnesium Direct Bilirubin AST ALT Alkaline Phosphatase Lactate Dehydrogenase Troponin T C-Reactive Protein Total Protein Albumin Prealbumin Triglycerides Cholesterol LDL Cholesterol Direct HDL Cholesterol 25-OH Vitamin D Total PTH Intact Urine pH Urine WBC (Auto) Urine Creatinine Urine Total Protein Fluid Total Protein Vancomycin Trough Rheumatoid Factor Complement C4 Miscellaneous Test Crossmatch 10/02/16 10/03/16 10/03/16 23:45 00:45 05:10 WBC 12.9 H RBC 2.77 L Hgb 7.6 L Hct 23.7 L MCV MCH 27 L MCHC RDW 19.7 H Plt Count 89 L Lymph % (Auto) Roberts % (Auto) Lymph # Roberts # Baso # Seg Neutrophils % Seg Neuts % (Manual) Lymphocytes % (Manual) 8.0 L Monocytes % (Manual) Eosinophils % (Manual) Basophils % (Manual) Nucleated RBC % Seg Neutrophils # 11.9 H Seg Neutrophils # Man Lymphocytes # (Manual) 1.0 L Monocytes # (Manual) Eosinophils # (Manual) Basophils # (Manual) PT INR Fibrinogen dRVVT Confirm Interp Factor V Activity POC ABG pH POC ABG pCO2 POC ABG pO2 ABG pO2 ABG HCO3 ABG Base Excess ABG Hemoglobin Oxyhemoglobin Sodium Potassium Chloride Carbon Dioxide BUN Creatinine Glucose POC Glucose 55 L 199 H Lactic Acid Calcium Ionized Calcium Phosphorus Magnesium Direct Bilirubin AST ALT Alkaline Phosphatase Lactate Dehydrogenase Troponin T C-Reactive Protein Total Protein Albumin Prealbumin Triglycerides Cholesterol LDL Cholesterol Direct HDL Cholesterol 25-OH Vitamin D Total PTH Intact Urine pH Urine WBC (Auto) Urine Creatinine Urine Total Protein Fluid Total Protein Vancomycin Trough Rheumatoid Factor Complement C4 Miscellaneous Test Crossmatch 10/03/16 10/03/16 10/03/16 05:10 12:14 13:18 WBC RBC Hgb Hct MCV MCH MCHC RDW Plt Count Lymph % (Auto) Roberts % (Auto) Lymph # Roberts # Baso # Seg Neutrophils % Seg Neuts % (Manual) Lymphocytes % (Manual) Monocytes % (Manual) Eosinophils % (Manual) Basophils % (Manual) Nucleated RBC % Seg Neutrophils # Seg Neutrophils # Man Lymphocytes # (Manual) Monocytes # (Manual) Eosinophils # (Manual) Basophils # (Manual) PT INR Fibrinogen dRVVT Confirm Interp Factor V Activity POC ABG pH POC ABG pCO2 POC ABG pO2 ABG pO2 ABG HCO3 ABG Base Excess ABG Hemoglobin Oxyhemoglobin Sodium 129 L Potassium 3.3 L Chloride 88.8 L Carbon Dioxide 20 L BUN 29 H Creatinine 2.8 H Glucose POC Glucose 68 L 127 H Lactic Acid Calcium 7.2 L Ionized Calcium Phosphorus Magnesium Direct Bilirubin AST ALT Alkaline Phosphatase Lactate Dehydrogenase Troponin T C-Reactive Protein Total Protein Albumin Prealbumin Triglycerides Cholesterol LDL Cholesterol Direct HDL Cholesterol 25-OH Vitamin D Total PTH Intact Urine pH Urine WBC (Auto) Urine Creatinine Urine Total Protein Fluid Total Protein Vancomycin Trough Rheumatoid Factor Complement C4 Miscellaneous Test Crossmatch 10/03/16 10/03/16 10/03/16 14:42 18:21 19:09 WBC RBC Hgb Hct MCV MCH MCHC RDW Plt Count Lymph % (Auto) Roberts % (Auto) Lymph # Roberts # Baso # Seg Neutrophils % Seg Neuts % (Manual) Lymphocytes % (Manual) Monocytes % (Manual) Eosinophils % (Manual) Basophils % (Manual) Nucleated RBC % Seg Neutrophils # Seg Neutrophils # Man Lymphocytes # (Manual) Monocytes # (Manual) Eosinophils # (Manual) Basophils # (Manual) PT INR Fibrinogen dRVVT Confirm Interp Factor V Activity POC ABG pH 7.499 H POC ABG pCO2 28.4 L POC ABG pO2 44 L ABG pO2 ABG HCO3 ABG Base Excess ABG Hemoglobin Oxyhemoglobin Sodium Potassium Chloride Carbon Dioxide BUN Creatinine Glucose POC Glucose 64 L 205 H Lactic Acid Calcium Ionized Calcium Phosphorus Magnesium Direct Bilirubin AST ALT Alkaline Phosphatase Lactate Dehydrogenase Troponin T C-Reactive Protein Total Protein Albumin Prealbumin Triglycerides Cholesterol LDL Cholesterol Direct HDL Cholesterol 25-OH Vitamin D Total PTH Intact Urine pH Urine WBC (Auto) Urine Creatinine Urine Total Protein Fluid Total Protein Vancomycin Trough Rheumatoid Factor Complement C4 Miscellaneous Test Crossmatch 10/03/16 10/04/16 10/04/16 23:33 04:18 06:30 WBC RBC 2.54 L Hgb 7.1 L Hct 21.7 L MCV MCH MCHC RDW 19.5 H Plt Count 76 L Lymph % (Auto) Roberts % (Auto) Lymph # Roberts # Baso # Seg Neutrophils % Seg Neuts % (Manual) 88.0 H Lymphocytes % (Manual) 6.0 L Monocytes % (Manual) Eosinophils % (Manual) Basophils % (Manual) Nucleated RBC % Seg Neutrophils # Seg Neutrophils # Man 8.8 H Lymphocytes # (Manual) 0.6 L Monocytes # (Manual) Eosinophils # (Manual) Basophils # (Manual) PT INR Fibrinogen dRVVT Confirm Interp Factor V Activity POC ABG pH 7.461 H POC ABG pCO2 33.6 L POC ABG pO2 211 H ABG pO2 ABG HCO3 ABG Base Excess ABG Hemoglobin Oxyhemoglobin Sodium Potassium Chloride Carbon Dioxide BUN Creatinine Glucose POC Glucose 136 H Lactic Acid Calcium Ionized Calcium Phosphorus Magnesium Direct Bilirubin AST ALT Alkaline Phosphatase Lactate Dehydrogenase Troponin T C-Reactive Protein Total Protein Albumin Prealbumin Triglycerides Cholesterol LDL Cholesterol Direct HDL Cholesterol 25-OH Vitamin D Total PTH Intact Urine pH Urine WBC (Auto) Urine Creatinine Urine Total Protein Fluid Total Protein Vancomycin Trough Rheumatoid Factor Complement C4 Miscellaneous Test Crossmatch 10/04/16 10/04/16 10/04/16 06:30 11:45 17:54 WBC RBC Hgb Hct MCV MCH MCHC RDW Plt Count Lymph % (Auto) Roberts % (Auto) Lymph # Roberts # Baso # Seg Neutrophils % Seg Neuts % (Manual) Lymphocytes % (Manual) Monocytes % (Manual) Eosinophils % (Manual) Basophils % (Manual) Nucleated RBC % Seg Neutrophils # Seg Neutrophils # Man Lymphocytes # (Manual) Monocytes # (Manual) Eosinophils # (Manual) Basophils # (Manual) PT INR Fibrinogen dRVVT Confirm Interp Factor V Activity POC ABG pH POC ABG pCO2 POC ABG pO2 ABG pO2 ABG HCO3 ABG Base Excess ABG Hemoglobin Oxyhemoglobin Sodium 128 L Potassium Chloride 87.4 L Carbon Dioxide 20 L BUN 34 H Creatinine 2.9 H Glucose 127 H POC Glucose 158 H 160 H Lactic Acid Calcium 7.4 L Ionized Calcium Phosphorus Magnesium Direct Bilirubin AST ALT Alkaline Phosphatase Lactate Dehydrogenase Troponin T C-Reactive Protein Total Protein Albumin Prealbumin Triglycerides Cholesterol LDL Cholesterol Direct HDL Cholesterol 25-OH Vitamin D Total PTH Intact Urine pH Urine WBC (Auto) Urine Creatinine Urine Total Protein Fluid Total Protein Vancomycin Trough Rheumatoid Factor Complement C4 Miscellaneous Test Crossmatch 10/04/16 10/05/16 10/05/16 23:25 04:30 05:00 WBC RBC 2.64 L Hgb 7.5 L Hct 22.6 L MCV MCH MCHC RDW 19.3 H Plt Count 80 L Lymph % (Auto) Roberts % (Auto) Lymph # Roberts # Baso # Seg Neutrophils % Seg Neuts % (Manual) Lymphocytes % (Manual) 12.0 L Monocytes % (Manual) Eosinophils % (Manual) Basophils % (Manual) Nucleated RBC % Seg Neutrophils # Seg Neutrophils # Man Lymphocytes # (Manual) Monocytes # (Manual) Eosinophils # (Manual) Basophils # (Manual) PT INR Fibrinogen dRVVT Confirm Interp Factor V Activity POC ABG pH 7.475 H POC ABG pCO2 33.3 L POC ABG pO2 140 H ABG pO2 ABG HCO3 ABG Base Excess ABG Hemoglobin Oxyhemoglobin Sodium Potassium Chloride Carbon Dioxide BUN Creatinine Glucose POC Glucose 141 H Lactic Acid Calcium Ionized Calcium Phosphorus Magnesium Direct Bilirubin AST ALT Alkaline Phosphatase Lactate Dehydrogenase Troponin T C-Reactive Protein Total Protein Albumin Prealbumin Triglycerides Cholesterol LDL Cholesterol Direct HDL Cholesterol 25-OH Vitamin D Total PTH Intact Urine pH Urine WBC (Auto) Urine Creatinine Urine Total Protein Fluid Total Protein Vancomycin Trough Rheumatoid Factor Complement C4 Miscellaneous Test Crossmatch 10/05/16 10/05/16 10/05/16 05:00 05:09 12:58 WBC RBC Hgb Hct MCV MCH MCHC RDW Plt Count Lymph % (Auto) Roberts % (Auto) Lymph # Roberts # Baso # Seg Neutrophils % Seg Neuts % (Manual) Lymphocytes % (Manual) Monocytes % (Manual) Eosinophils % (Manual) Basophils % (Manual) Nucleated RBC % Seg Neutrophils # Seg Neutrophils # Man Lymphocytes # (Manual) Monocytes # (Manual) Eosinophils # (Manual) Basophils # (Manual) PT INR Fibrinogen dRVVT Confirm Interp Factor V Activity POC ABG pH POC ABG pCO2 POC ABG pO2 ABG pO2 ABG HCO3 ABG Base Excess ABG Hemoglobin Oxyhemoglobin Sodium 131 L Potassium Chloride 94.0 L Carbon Dioxide 20 L BUN 22 H Creatinine 2.0 H Glucose 123 H POC Glucose 166 H 179 H Lactic Acid Calcium 7.7 L Ionized Calcium Phosphorus 2.20 L D Magnesium Direct Bilirubin AST ALT Alkaline Phosphatase Lactate Dehydrogenase Troponin T C-Reactive Protein Total Protein Albumin Prealbumin Triglycerides Cholesterol LDL Cholesterol Direct HDL Cholesterol 25-OH Vitamin D Total PTH Intact Urine pH Urine WBC (Auto) Urine Creatinine Urine Total Protein Fluid Total Protein Vancomycin Trough Rheumatoid Factor Complement C4 Miscellaneous Test Crossmatch 10/05/16 10/05/16 10/05/16 15:50 18:53 23:12 WBC RBC Hgb Hct MCV MCH MCHC RDW Plt Count Lymph % (Auto) Roberts % (Auto) Lymph # Roberts # Baso # Seg Neutrophils % Seg Neuts % (Manual) Lymphocytes % (Manual) Monocytes % (Manual) Eosinophils % (Manual) Basophils % (Manual) Nucleated RBC % Seg Neutrophils # Seg Neutrophils # Man Lymphocytes # (Manual) Monocytes # (Manual) Eosinophils # (Manual) Basophils # (Manual) PT INR Fibrinogen dRVVT Confirm Interp Factor V Activity POC ABG pH POC ABG pCO2 POC ABG pO2 ABG pO2 ABG HCO3 ABG Base Excess ABG Hemoglobin Oxyhemoglobin Sodium Potassium Chloride Carbon Dioxide BUN Creatinine Glucose POC Glucose 150 H 164 H Lactic Acid Calcium Ionized Calcium Phosphorus Magnesium Direct Bilirubin AST ALT Alkaline Phosphatase Lactate Dehydrogenase Troponin T C-Reactive Protein Total Protein Albumin Prealbumin Triglycerides Cholesterol LDL Cholesterol Direct HDL Cholesterol 25-OH Vitamin D Total PTH Intact Urine pH Urine WBC (Auto) Urine Creatinine Urine Total Protein Fluid Total Protein Vancomycin Trough Rheumatoid Factor Complement C4 Miscellaneous Test Crossmatch See Detail 10/06/16 10/06/16 10/06/16 03:50 03:50 04:53 WBC RBC 3.00 L Hgb 8.6 L Hct 25.8 L MCV MCH MCHC RDW 17.9 H Plt Count 65 L Lymph % (Auto) Roberts % (Auto) Lymph # Roberts # Baso # Seg Neutrophils % Seg Neuts % (Manual) 30.0 L Lymphocytes % (Manual) 5.0 L Monocytes % (Manual) Eosinophils % (Manual) Basophils % (Manual) Nucleated RBC % Seg Neutrophils # Seg Neutrophils # Man Lymphocytes # (Manual) 0.4 L Monocytes # (Manual) Eosinophils # (Manual) Basophils # (Manual) PT INR Fibrinogen dRVVT Confirm Interp Factor V Activity POC ABG pH 7.310 L POC ABG pCO2 49.0 H POC ABG pO2 ABG pO2 ABG HCO3 ABG Base Excess ABG Hemoglobin Oxyhemoglobin Sodium 133 L Potassium Chloride 95.9 L Carbon Dioxide BUN 26 H Creatinine 2.0 H Glucose 116 H POC Glucose Lactic Acid Calcium 7.8 L Ionized Calcium Phosphorus Magnesium Direct Bilirubin AST ALT Alkaline Phosphatase Lactate Dehydrogenase Troponin T C-Reactive Protein Total Protein Albumin Prealbumin Triglycerides Cholesterol LDL Cholesterol Direct HDL Cholesterol 25-OH Vitamin D Total PTH Intact Urine pH Urine WBC (Auto) Urine Creatinine Urine Total Protein Fluid Total Protein Vancomycin Trough Rheumatoid Factor Complement C4 Miscellaneous Test Crossmatch 10/06/16 10/06/16 10/06/16 05:23 11:52 18:34 WBC RBC Hgb Hct MCV MCH MCHC RDW Plt Count Lymph % (Auto) Roberts % (Auto) Lymph # Roberts # Baso # Seg Neutrophils % Seg Neuts % (Manual) Lymphocytes % (Manual) Monocytes % (Manual) Eosinophils % (Manual) Basophils % (Manual) Nucleated RBC % Seg Neutrophils # Seg Neutrophils # Man Lymphocytes # (Manual) Monocytes # (Manual) Eosinophils # (Manual) Basophils # (Manual) PT INR Fibrinogen dRVVT Confirm Interp Factor V Activity POC ABG pH POC ABG pCO2 POC ABG pO2 ABG pO2 ABG HCO3 ABG Base Excess ABG Hemoglobin Oxyhemoglobin Sodium Potassium Chloride Carbon Dioxide BUN Creatinine Glucose POC Glucose 126 H 116 H 129 H Lactic Acid Calcium Ionized Calcium Phosphorus Magnesium Direct Bilirubin AST ALT Alkaline Phosphatase Lactate Dehydrogenase Troponin T C-Reactive Protein Total Protein Albumin Prealbumin Triglycerides Cholesterol LDL Cholesterol Direct HDL Cholesterol 25-OH Vitamin D Total PTH Intact Urine pH Urine WBC (Auto) Urine Creatinine Urine Total Protein Fluid Total Protein Vancomycin Trough Rheumatoid Factor Complement C4 Miscellaneous Test Crossmatch 10/07/16 10/07/16 10/07/16 03:45 05:00 10:00 WBC 17.0 H RBC 2.68 L Hgb 7.3 L Hct 25.3 L MCV MCH 27 L MCHC 29 L RDW 19.6 H Plt Count 74 L Lymph % (Auto) Roberts % (Auto) Lymph # Roberts # Baso # Seg Neutrophils % Seg Neuts % (Manual) Lymphocytes % (Manual) 12.0 L Monocytes % (Manual) Eosinophils % (Manual) Basophils % (Manual) Nucleated RBC % 4.0 H Seg Neutrophils # Seg Neutrophils # Man 10.7 H Lymphocytes # (Manual) Monocytes # (Manual) Eosinophils # (Manual) Basophils # (Manual) PT INR Fibrinogen dRVVT Confirm Interp Factor V Activity POC ABG pH POC ABG pCO2 POC ABG pO2 ABG pO2 ABG HCO3 ABG Base Excess ABG Hemoglobin Oxyhemoglobin Sodium 130 L Potassium 3.2 L Chloride 93.9 L Carbon Dioxide 20 L BUN 44 H Creatinine 2.7 H Glucose 129 H POC Glucose Lactic Acid Calcium 7.4 L Ionized Calcium Phosphorus Magnesium Direct Bilirubin AST ALT 6 L Alkaline Phosphatase 195 H Lactate Dehydrogenase Troponin T C-Reactive Protein Total Protein 4.9 L Albumin 1.0 L Prealbumin Triglycerides Cholesterol LDL Cholesterol Direct HDL Cholesterol 25-OH Vitamin D Total PTH Intact Urine pH Urine WBC (Auto) Urine Creatinine Urine Total Protein Fluid Total Protein Vancomycin Trough Rheumatoid Factor Complement C4 Miscellaneous Test Flexitest 1 H Crossmatch 10/07/16 10/07/16 10/07/16 10:00 11:24 18:10 WBC RBC Hgb Hct MCV MCH MCHC RDW Plt Count Lymph % (Auto) Roberts % (Auto) Lymph # Roberts # Baso # Seg Neutrophils % Seg Neuts % (Manual) Lymphocytes % (Manual) Monocytes % (Manual) Eosinophils % (Manual) Basophils % (Manual) Nucleated RBC % Seg Neutrophils # Seg Neutrophils # Man Lymphocytes # (Manual) Monocytes # (Manual) Eosinophils # (Manual) Basophils # (Manual) PT INR Fibrinogen dRVVT Confirm Interp Factor V Activity POC ABG pH POC ABG pCO2 POC ABG pO2 ABG pO2 ABG HCO3 ABG Base Excess ABG Hemoglobin Oxyhemoglobin Sodium Potassium Chloride Carbon Dioxide BUN Creatinine Glucose POC Glucose 116 H 130 H Lactic Acid Calcium Ionized Calcium Phosphorus Magnesium Direct Bilirubin AST ALT Alkaline Phosphatase Lactate Dehydrogenase Troponin T C-Reactive Protein 19.40 H Total Protein Albumin Prealbumin Triglycerides Cholesterol LDL Cholesterol Direct HDL Cholesterol 25-OH Vitamin D Total PTH Intact Urine pH Urine WBC (Auto) Urine Creatinine Urine Total Protein Fluid Total Protein Vancomycin Trough Rheumatoid Factor Complement C4 Miscellaneous Test Crossmatch 10/07/16 10/08/16 10/08/16 18:30 00:00 04:00 WBC RBC Hgb Hct MCV MCH MCHC RDW Plt Count Lymph % (Auto) Roberts % (Auto) Lymph # Roberts # Baso # Seg Neutrophils % Seg Neuts % (Manual) Lymphocytes % (Manual) Monocytes % (Manual) Eosinophils % (Manual) Basophils % (Manual) Nucleated RBC % Seg Neutrophils # Seg Neutrophils # Man Lymphocytes # (Manual) Monocytes # (Manual) Eosinophils # (Manual) Basophils # (Manual) PT INR Fibrinogen dRVVT Confirm Interp Factor V Activity POC ABG pH POC ABG pCO2 POC ABG pO2 ABG pO2 ABG HCO3 ABG Base Excess ABG Hemoglobin Oxyhemoglobin Sodium 132 L Potassium 3.3 L Chloride 93.6 L Carbon Dioxide 17 L BUN 59 H Creatinine 2.7 H Glucose 121 H POC Glucose 122 H Lactic Acid Calcium 7.6 L Ionized Calcium Phosphorus Magnesium Direct Bilirubin AST ALT Alkaline Phosphatase Lactate Dehydrogenase Troponin T C-Reactive Protein Total Protein Albumin Prealbumin Triglycerides Cholesterol LDL Cholesterol Direct HDL Cholesterol 25-OH Vitamin D Total PTH Intact Urine pH Urine WBC (Auto) > 182.0 H Urine Creatinine Urine Total Protein Fluid Total Protein Vancomycin Trough Rheumatoid Factor Complement C4 Miscellaneous Test Crossmatch 10/08/16 10/08/16 10/08/16 04:30 05:30 11:51 WBC RBC 5.15 H Hgb 14.4 H D Hct 44.5 H D MCV MCH MCHC RDW 19.5 H Plt Count 56 L Lymph % (Auto) Roberts % (Auto) Lymph # Roberts # Baso # Seg Neutrophils % Seg Neuts % (Manual) 24.0 L Lymphocytes % (Manual) 8.0 L Monocytes % (Manual) Eosinophils % (Manual) Basophils % (Manual) Nucleated RBC % 9.0 H Seg Neutrophils # Seg Neutrophils # Man Lymphocytes # (Manual) 0.7 L Monocytes # (Manual) Eosinophils # (Manual) Basophils # (Manual) PT INR Fibrinogen dRVVT Confirm Interp Factor V Activity POC ABG pH POC ABG pCO2 POC ABG pO2 ABG pO2 ABG HCO3 ABG Base Excess ABG Hemoglobin Oxyhemoglobin Sodium Potassium Chloride Carbon Dioxide BUN Creatinine Glucose POC Glucose 125 H 150 H Lactic Acid Calcium Ionized Calcium Phosphorus Magnesium Direct Bilirubin AST ALT Alkaline Phosphatase Lactate Dehydrogenase Troponin T C-Reactive Protein Total Protein Albumin Prealbumin Triglycerides Cholesterol LDL Cholesterol Direct HDL Cholesterol 25-OH Vitamin D Total PTH Intact Urine pH Urine WBC (Auto) Urine Creatinine Urine Total Protein Fluid Total Protein Vancomycin Trough Rheumatoid Factor Complement C4 Miscellaneous Test Crossmatch 10/08/16 10/08/16 10/08/16 12:49 17:07 19:30 WBC RBC Hgb 7.1 L D Hct 22.4 L D MCV MCH MCHC RDW Plt Count Lymph % (Auto) Roberts % (Auto) Lymph # Roberts # Baso # Seg Neutrophils % Seg Neuts % (Manual) Lymphocytes % (Manual) Monocytes % (Manual) Eosinophils % (Manual) Basophils % (Manual) Nucleated RBC % Seg Neutrophils # Seg Neutrophils # Man Lymphocytes # (Manual) Monocytes # (Manual) Eosinophils # (Manual) Basophils # (Manual) PT INR Fibrinogen dRVVT Confirm Interp Factor V Activity POC ABG pH POC ABG pCO2 28.2 L POC ABG pO2 111 H ABG pO2 ABG HCO3 ABG Base Excess ABG Hemoglobin Oxyhemoglobin Sodium Potassium Chloride Carbon Dioxide BUN Creatinine Glucose POC Glucose 145 H Lactic Acid Calcium Ionized Calcium Phosphorus Magnesium Direct Bilirubin AST ALT Alkaline Phosphatase Lactate Dehydrogenase Troponin T C-Reactive Protein Total Protein Albumin Prealbumin Triglycerides Cholesterol LDL Cholesterol Direct HDL Cholesterol 25-OH Vitamin D Total PTH Intact Urine pH Urine WBC (Auto) Urine Creatinine Urine Total Protein Fluid Total Protein Vancomycin Trough Rheumatoid Factor Complement C4 Miscellaneous Test Crossmatch 10/08/16 10/09/16 10/09/16 19:30 03:45 03:45 WBC 12.6 H RBC 2.36 L Hgb 6.7 L Hct 21.1 L MCV MCH MCHC RDW 19.5 H Plt Count 75 L Lymph % (Auto) Roberts % (Auto) Lymph # Roberts # Baso # Seg Neutrophils % Seg Neuts % (Manual) Lymphocytes % (Manual) Monocytes % (Manual) 10.0 H Eosinophils % (Manual) Basophils % (Manual) Nucleated RBC % 3.0 H Seg Neutrophils # Seg Neutrophils # Man Lymphocytes # (Manual) Monocytes # (Manual) 1.3 H Eosinophils # (Manual) Basophils # (Manual) PT 18.0 H INR 1.41 H Fibrinogen dRVVT Confirm Interp Factor V Activity POC ABG pH POC ABG pCO2 POC ABG pO2 ABG pO2 ABG HCO3 ABG Base Excess ABG Hemoglobin Oxyhemoglobin Sodium 135 L Potassium Chloride Carbon Dioxide 17 L BUN 81 H Creatinine 3.2 H Glucose 109 H POC Glucose Lactic Acid Calcium 7.4 L Ionized Calcium Phosphorus 4.60 H D Magnesium Direct Bilirubin AST ALT Alkaline Phosphatase Lactate Dehydrogenase Troponin T C-Reactive Protein Total Protein Albumin Prealbumin Triglycerides Cholesterol LDL Cholesterol Direct HDL Cholesterol 25-OH Vitamin D Total PTH Intact Urine pH Urine WBC (Auto) Urine Creatinine Urine Total Protein Fluid Total Protein Vancomycin Trough Rheumatoid Factor Complement C4 Miscellaneous Test Crossmatch 10/09/16 10/09/16 10/09/16 03:45 05:14 07:20 WBC RBC Hgb Hct MCV MCH MCHC RDW Plt Count Lymph % (Auto) Roberts % (Auto) Lymph # Roberts # Baso # Seg Neutrophils % Seg Neuts % (Manual) Lymphocytes % (Manual) Monocytes % (Manual) Eosinophils % (Manual) Basophils % (Manual) Nucleated RBC % Seg Neutrophils # Seg Neutrophils # Man Lymphocytes # (Manual) Monocytes # (Manual) Eosinophils # (Manual) Basophils # (Manual) PT 19.0 H INR 1.51 H Fibrinogen dRVVT Confirm Interp Factor V Activity POC ABG pH POC ABG pCO2 POC ABG pO2 ABG pO2 ABG HCO3 ABG Base Excess ABG Hemoglobin Oxyhemoglobin Sodium Potassium Chloride Carbon Dioxide BUN Creatinine Glucose POC Glucose 151 H Lactic Acid Calcium Ionized Calcium Phosphorus Magnesium Direct Bilirubin AST ALT Alkaline Phosphatase Lactate Dehydrogenase Troponin T C-Reactive Protein Total Protein Albumin Prealbumin Triglycerides Cholesterol LDL Cholesterol Direct HDL Cholesterol 25-OH Vitamin D Total PTH Intact Urine pH Urine WBC (Auto) Urine Creatinine Urine Total Protein Fluid Total Protein Vancomycin Trough Rheumatoid Factor Complement C4 Miscellaneous Test Crossmatch See Detail 10/09/16 10/09/16 10/09/16 11:46 16:20 16:43 WBC RBC Hgb 7.2 L Hct 22.2 L MCV MCH MCHC RDW Plt Count Lymph % (Auto) Roberts % (Auto) Lymph # Roberts # Baso # Seg Neutrophils % Seg Neuts % (Manual) Lymphocytes % (Manual) Monocytes % (Manual) Eosinophils % (Manual) Basophils % (Manual) Nucleated RBC % Seg Neutrophils # Seg Neutrophils # Man Lymphocytes # (Manual) Monocytes # (Manual) Eosinophils # (Manual) Basophils # (Manual) PT INR Fibrinogen dRVVT Confirm Interp Factor V Activity POC ABG pH POC ABG pCO2 POC ABG pO2 ABG pO2 ABG HCO3 ABG Base Excess ABG Hemoglobin Oxyhemoglobin Sodium Potassium Chloride Carbon Dioxide BUN Creatinine Glucose POC Glucose 133 H 141 H Lactic Acid Calcium Ionized Calcium Phosphorus Magnesium Direct Bilirubin AST ALT Alkaline Phosphatase Lactate Dehydrogenase Troponin T C-Reactive Protein Total Protein Albumin Prealbumin Triglycerides Cholesterol LDL Cholesterol Direct HDL Cholesterol 25-OH Vitamin D Total PTH Intact Urine pH Urine WBC (Auto) Urine Creatinine Urine Total Protein Fluid Total Protein Vancomycin Trough Rheumatoid Factor Complement C4 Miscellaneous Test Crossmatch 10/10/16 10/10/16 10/10/16 05:00 05:00 11:19 WBC 18.5 H RBC 2.19 L Hgb 6.4 L Hct 19.6 L* MCV MCH MCHC RDW 19.3 H Plt Count 93 L Lymph % (Auto) Roberts % (Auto) Lymph # Roberts # Baso # Seg Neutrophils % Seg Neuts % (Manual) Lymphocytes % (Manual) 10.0 L Monocytes % (Manual) Eosinophils % (Manual) Basophils % (Manual) Nucleated RBC % 4.0 H Seg Neutrophils # Seg Neutrophils # Man 11.3 H Lymphocytes # (Manual) Monocytes # (Manual) Eosinophils # (Manual) Basophils # (Manual) PT INR Fibrinogen dRVVT Confirm Interp Factor V Activity POC ABG pH POC ABG pCO2 POC ABG pO2 ABG pO2 ABG HCO3 ABG Base Excess ABG Hemoglobin Oxyhemoglobin Sodium Potassium 5.7 H D Chloride Carbon Dioxide 16 L BUN 94 H Creatinine 3.1 H Glucose 131 H POC Glucose 153 H Lactic Acid Calcium 8.2 L Ionized Calcium Phosphorus 5.10 H Magnesium 2.40 H Direct Bilirubin 0.3 H AST ALT < 5 L Alkaline Phosphatase 319 H Lactate Dehydrogenase Troponin T C-Reactive Protein Total Protein 5.1 L Albumin 1.0 L Prealbumin Triglycerides Cholesterol LDL Cholesterol Direct HDL Cholesterol 25-OH Vitamin D Total PTH Intact Urine pH Urine WBC (Auto) Urine Creatinine Urine Total Protein Fluid Total Protein Vancomycin Trough Rheumatoid Factor Complement C4 Miscellaneous Test Crossmatch 10/10/16 10/10/16 10/11/16 17:50 23:30 04:15 WBC RBC Hgb Hct MCV MCH MCHC RDW Plt Count Lymph % (Auto) Roberts % (Auto) Lymph # Roberts # Baso # Seg Neutrophils % Seg Neuts % (Manual) Lymphocytes % (Manual) Monocytes % (Manual) Eosinophils % (Manual) Basophils % (Manual) Nucleated RBC % Seg Neutrophils # Seg Neutrophils # Man Lymphocytes # (Manual) Monocytes # (Manual) Eosinophils # (Manual) Basophils # (Manual) PT INR Fibrinogen dRVVT Confirm Interp Factor V Activity POC ABG pH POC ABG pCO2 POC ABG pO2 ABG pO2 ABG HCO3 ABG Base Excess ABG Hemoglobin Oxyhemoglobin Sodium Potassium Chloride 96.4 L Carbon Dioxide 21 L BUN 57 H Creatinine 2.1 H Glucose 151 H POC Glucose 146 H 141 H Lactic Acid Calcium 8.3 L Ionized Calcium Phosphorus Magnesium Direct Bilirubin AST ALT Alkaline Phosphatase Lactate Dehydrogenase Troponin T C-Reactive Protein Total Protein Albumin Prealbumin Triglycerides Cholesterol LDL Cholesterol Direct HDL Cholesterol 25-OH Vitamin D Total PTH Intact Urine pH Urine WBC (Auto) Urine Creatinine Urine Total Protein Fluid Total Protein Vancomycin Trough Rheumatoid Factor Complement C4 Miscellaneous Test Crossmatch 10/11/16 10/11/16 10/11/16 04:15 04:15 05:30 WBC 28.3 H RBC 3.12 L Hgb 9.3 L Hct 28.7 L D MCV MCH MCHC RDW 17.7 H Plt Count 128 L Lymph % (Auto) Roberts % (Auto) Lymph # Roberts # Baso # Seg Neutrophils % Seg Neuts % (Manual) Lymphocytes % (Manual) Monocytes % (Manual) Eosinophils % (Manual) Basophils % (Manual) Nucleated RBC % Seg Neutrophils # Seg Neutrophils # Man Lymphocytes # (Manual) Monocytes # (Manual) Eosinophils # (Manual) Basophils # (Manual) PT INR Fibrinogen dRVVT Confirm Interp Factor V Activity POC ABG pH POC ABG pCO2 POC ABG pO2 ABG pO2 ABG HCO3 ABG Base Excess ABG Hemoglobin Oxyhemoglobin Sodium Potassium Chloride Carbon Dioxide BUN Creatinine Glucose POC Glucose 167 H Lactic Acid Calcium Ionized Calcium Phosphorus Magnesium Direct Bilirubin AST ALT Alkaline Phosphatase Lactate Dehydrogenase Troponin T C-Reactive Protein 15.80 H Total Protein Albumin Prealbumin Triglycerides Cholesterol LDL Cholesterol Direct HDL Cholesterol 25-OH Vitamin D Total PTH Intact Urine pH Urine WBC (Auto) Urine Creatinine Urine Total Protein Fluid Total Protein Vancomycin Trough Rheumatoid Factor Complement C4 Miscellaneous Test Crossmatch 10/11/16 10/11/16 10/11/16 11:40 15:49 23:57 WBC RBC Hgb Hct MCV MCH MCHC RDW Plt Count Lymph % (Auto) Roberts % (Auto) Lymph # Roberts # Baso # Seg Neutrophils % Seg Neuts % (Manual) Lymphocytes % (Manual) Monocytes % (Manual) Eosinophils % (Manual) Basophils % (Manual) Nucleated RBC % Seg Neutrophils # Seg Neutrophils # Man Lymphocytes # (Manual) Monocytes # (Manual) Eosinophils # (Manual) Basophils # (Manual) PT INR Fibrinogen dRVVT Confirm Interp Factor V Activity POC ABG pH POC ABG pCO2 POC ABG pO2 ABG pO2 ABG HCO3 ABG Base Excess ABG Hemoglobin Oxyhemoglobin Sodium Potassium Chloride Carbon Dioxide BUN Creatinine Glucose POC Glucose 139 H 168 H 161 H Lactic Acid Calcium Ionized Calcium Phosphorus Magnesium Direct Bilirubin AST ALT Alkaline Phosphatase Lactate Dehydrogenase Troponin T C-Reactive Protein Total Protein Albumin Prealbumin Triglycerides Cholesterol LDL Cholesterol Direct HDL Cholesterol 25-OH Vitamin D Total PTH Intact Urine pH Urine WBC (Auto) Urine Creatinine Urine Total Protein Fluid Total Protein Vancomycin Trough Rheumatoid Factor Complement C4 Miscellaneous Test Crossmatch 10/12/16 10/12/16 10/12/16 04:40 04:40 05:44 WBC 22.5 H RBC 2.88 L Hgb 8.8 L Hct 26.8 L MCV MCH MCHC RDW 17.8 H Plt Count Lymph % (Auto) Roberts % (Auto) Lymph # Roberts # Baso # Seg Neutrophils % Seg Neuts % (Manual) Lymphocytes % (Manual) Monocytes % (Manual) Eosinophils % (Manual) Basophils % (Manual) Nucleated RBC % Seg Neutrophils # Seg Neutrophils # Man Lymphocytes # (Manual) Monocytes # (Manual) Eosinophils # (Manual) Basophils # (Manual) PT INR Fibrinogen dRVVT Confirm Interp Factor V Activity POC ABG pH POC ABG pCO2 POC ABG pO2 ABG pO2 ABG HCO3 ABG Base Excess ABG Hemoglobin Oxyhemoglobin Sodium 134 L Potassium Chloride 93.0 L Carbon Dioxide BUN 74 H Creatinine 2.5 H Glucose 137 H POC Glucose 158 H Lactic Acid Calcium 8.2 L Ionized Calcium Phosphorus Magnesium Direct Bilirubin AST ALT Alkaline Phosphatase Lactate Dehydrogenase Troponin T C-Reactive Protein Total Protein Albumin Prealbumin Triglycerides Cholesterol LDL Cholesterol Direct HDL Cholesterol 25-OH Vitamin D Total PTH Intact Urine pH Urine WBC (Auto) Urine Creatinine Urine Total Protein Fluid Total Protein Vancomycin Trough Rheumatoid Factor Complement C4 Miscellaneous Test Crossmatch 10/12/16 10/12/16 10/12/16 12:27 18:18 23:46 WBC RBC Hgb Hct MCV MCH MCHC RDW Plt Count Lymph % (Auto) Roberts % (Auto) Lymph # Roberts # Baso # Seg Neutrophils % Seg Neuts % (Manual) Lymphocytes % (Manual) Monocytes % (Manual) Eosinophils % (Manual) Basophils % (Manual) Nucleated RBC % Seg Neutrophils # Seg Neutrophils # Man Lymphocytes # (Manual) Monocytes # (Manual) Eosinophils # (Manual) Basophils # (Manual) PT INR Fibrinogen dRVVT Confirm Interp Factor V Activity POC ABG pH POC ABG pCO2 POC ABG pO2 ABG pO2 ABG HCO3 ABG Base Excess ABG Hemoglobin Oxyhemoglobin Sodium Potassium Chloride Carbon Dioxide BUN Creatinine Glucose POC Glucose 153 H 140 H 150 H Lactic Acid Calcium Ionized Calcium Phosphorus Magnesium Direct Bilirubin AST ALT Alkaline Phosphatase Lactate Dehydrogenase Troponin T C-Reactive Protein Total Protein Albumin Prealbumin Triglycerides Cholesterol LDL Cholesterol Direct HDL Cholesterol 25-OH Vitamin D Total PTH Intact Urine pH Urine WBC (Auto) Urine Creatinine Urine Total Protein Fluid Total Protein Vancomycin Trough Rheumatoid Factor Complement C4 Miscellaneous Test Crossmatch 10/13/16 10/13/16 10/13/16 06:22 09:20 12:29 WBC RBC Hgb Hct MCV MCH MCHC RDW Plt Count Lymph % (Auto) Roberts % (Auto) Lymph # Roberts # Baso # Seg Neutrophils % Seg Neuts % (Manual) Lymphocytes % (Manual) Monocytes % (Manual) Eosinophils % (Manual) Basophils % (Manual) Nucleated RBC % Seg Neutrophils # Seg Neutrophils # Man Lymphocytes # (Manual) Monocytes # (Manual) Eosinophils # (Manual) Basophils # (Manual) PT INR Fibrinogen dRVVT Confirm Interp Factor V Activity POC ABG pH POC ABG pCO2 POC ABG pO2 ABG pO2 ABG HCO3 ABG Base Excess ABG Hemoglobin Oxyhemoglobin Sodium Potassium Chloride Carbon Dioxide BUN Creatinine Glucose POC Glucose 165 H 193 H Lactic Acid Calcium Ionized Calcium Phosphorus Magnesium Direct Bilirubin AST ALT Alkaline Phosphatase Lactate Dehydrogenase Troponin T C-Reactive Protein Total Protein Albumin Prealbumin Triglycerides Cholesterol LDL Cholesterol Direct HDL Cholesterol 25-OH Vitamin D Total PTH Intact Urine pH Urine WBC (Auto) Urine Creatinine Urine Total Protein Fluid Total Protein Vancomycin Trough Rheumatoid Factor Complement C4 Miscellaneous Test Flexitest 1 H Crossmatch 10/13/16 10/13/16 10/13/16 18:09 Unknown Unknown WBC 23.4 H RBC 2.83 L Hgb 8.7 L Hct 26.1 L MCV MCH MCHC RDW 18.1 H Plt Count Lymph % (Auto) Roberts % (Auto) Lymph # Roberts # Baso # Seg Neutrophils % Seg Neuts % (Manual) Lymphocytes % (Manual) Monocytes % (Manual) Eosinophils % (Manual) Basophils % (Manual) Nucleated RBC % Seg Neutrophils # Seg Neutrophils # Man Lymphocytes # (Manual) Monocytes # (Manual) Eosinophils # (Manual) Basophils # (Manual) PT INR Fibrinogen dRVVT Confirm Interp Factor V Activity POC ABG pH POC ABG pCO2 POC ABG pO2 ABG pO2 ABG HCO3 ABG Base Excess ABG Hemoglobin Oxyhemoglobin Sodium Potassium Chloride 95.8 L Carbon Dioxide BUN 82 H Creatinine 2.6 H Glucose 152 H POC Glucose 166 H Lactic Acid Calcium Ionized Calcium Phosphorus Magnesium Direct Bilirubin AST ALT Alkaline Phosphatase Lactate Dehydrogenase Troponin T C-Reactive Protein Total Protein Albumin Prealbumin Triglycerides Cholesterol LDL Cholesterol Direct HDL Cholesterol 25-OH Vitamin D Total PTH Intact Urine pH Urine WBC (Auto) Urine Creatinine Urine Total Protein Fluid Total Protein Vancomycin Trough Rheumatoid Factor Complement C4 Miscellaneous Test Crossmatch 10/14/16 10/14/16 10/14/16 05:38 06:35 08:10 WBC 20.7 H RBC 2.81 L Hgb 8.4 L Hct 27.2 L MCV MCH MCHC RDW 19.4 H Plt Count Lymph % (Auto) Roberts % (Auto) Lymph # Roberts # Baso # Seg Neutrophils % Seg Neuts % (Manual) Lymphocytes % (Manual) Monocytes % (Manual) Eosinophils % (Manual) Basophils % (Manual) Nucleated RBC % Seg Neutrophils # Seg Neutrophils # Man Lymphocytes # (Manual) Monocytes # (Manual) Eosinophils # (Manual) Basophils # (Manual) PT INR Fibrinogen dRVVT Confirm Interp Factor V Activity POC ABG pH POC ABG pCO2 POC ABG pO2 ABG pO2 ABG HCO3 ABG Base Excess ABG Hemoglobin Oxyhemoglobin Sodium Potassium Chloride Carbon Dioxide BUN 58 H Creatinine 1.9 H Glucose 169 H POC Glucose 195 H Lactic Acid Calcium Ionized Calcium Phosphorus Magnesium Direct Bilirubin AST ALT Alkaline Phosphatase Lactate Dehydrogenase Troponin T C-Reactive Protein Total Protein Albumin Prealbumin Triglycerides Cholesterol LDL Cholesterol Direct HDL Cholesterol 25-OH Vitamin D Total PTH Intact Urine pH Urine WBC (Auto) Urine Creatinine Urine Total Protein Fluid Total Protein Vancomycin Trough Rheumatoid Factor Complement C4 Miscellaneous Test Crossmatch 10/14/16 10/14/16 10/14/16 11:44 17:13 23:28 WBC RBC Hgb Hct MCV MCH MCHC RDW Plt Count Lymph % (Auto) Roberts % (Auto) Lymph # Roberts # Baso # Seg Neutrophils % Seg Neuts % (Manual) Lymphocytes % (Manual) Monocytes % (Manual) Eosinophils % (Manual) Basophils % (Manual) Nucleated RBC % Seg Neutrophils # Seg Neutrophils # Man Lymphocytes # (Manual) Monocytes # (Manual) Eosinophils # (Manual) Basophils # (Manual) PT INR Fibrinogen dRVVT Confirm Interp Factor V Activity POC ABG pH POC ABG pCO2 POC ABG pO2 ABG pO2 ABG HCO3 ABG Base Excess ABG Hemoglobin Oxyhemoglobin Sodium Potassium Chloride Carbon Dioxide BUN Creatinine Glucose POC Glucose 174 H 121 H 151 H Lactic Acid Calcium Ionized Calcium Phosphorus Magnesium Direct Bilirubin AST ALT Alkaline Phosphatase Lactate Dehydrogenase Troponin T C-Reactive Protein Total Protein Albumin Prealbumin Triglycerides Cholesterol LDL Cholesterol Direct HDL Cholesterol 25-OH Vitamin D Total PTH Intact Urine pH Urine WBC (Auto) Urine Creatinine Urine Total Protein Fluid Total Protein Vancomycin Trough Rheumatoid Factor Complement C4 Miscellaneous Test Crossmatch 10/15/16 10/15/16 10/15/16 05:06 12:26 17:48 WBC RBC Hgb Hct MCV MCH MCHC RDW Plt Count Lymph % (Auto) Roberts % (Auto) Lymph # Roberts # Baso # Seg Neutrophils % Seg Neuts % (Manual) Lymphocytes % (Manual) Monocytes % (Manual) Eosinophils % (Manual) Basophils % (Manual) Nucleated RBC % Seg Neutrophils # Seg Neutrophils # Man Lymphocytes # (Manual) Monocytes # (Manual) Eosinophils # (Manual) Basophils # (Manual) PT INR Fibrinogen dRVVT Confirm Interp Factor V Activity POC ABG pH POC ABG pCO2 POC ABG pO2 ABG pO2 ABG HCO3 ABG Base Excess ABG Hemoglobin Oxyhemoglobin Sodium Potassium Chloride Carbon Dioxide BUN Creatinine Glucose POC Glucose 151 H 149 H 153 H Lactic Acid Calcium Ionized Calcium Phosphorus Magnesium Direct Bilirubin AST ALT Alkaline Phosphatase Lactate Dehydrogenase Troponin T C-Reactive Protein Total Protein Albumin Prealbumin Triglycerides Cholesterol LDL Cholesterol Direct HDL Cholesterol 25-OH Vitamin D Total PTH Intact Urine pH Urine WBC (Auto) Urine Creatinine Urine Total Protein Fluid Total Protein Vancomycin Trough Rheumatoid Factor Complement C4 Miscellaneous Test Crossmatch 10/15/16 10/15/1610/16/17 Unknown Unknown 00:02 WBC 23.4 H RBC 2.78 L Hgb 8.5 L Hct 25.7 L MCV MCH MCHC RDW 18.7 H Plt Count Lymph % (Auto) Roberts % (Auto) Lymph # Roberts # Baso # Seg Neutrophils % Seg Neuts % (Manual) Lymphocytes % (Manual) Monocytes % (Manual) Eosinophils % (Manual) Basophils % (Manual) Nucleated RBC % Seg Neutrophils # Seg Neutrophils # Man Lymphocytes # (Manual) Monocytes # (Manual) Eosinophils # (Manual) Basophils # (Manual) PT INR Fibrinogen dRVVT Confirm Interp Factor V Activity POC ABG pH POC ABG pCO2 POC ABG pO2 ABG pO2 ABG HCO3 ABG Base Excess ABG Hemoglobin Oxyhemoglobin Sodium Potassium Chloride Carbon Dioxide BUN 73 H Creatinine 2.3 H Glucose 120 H POC Glucose 137 H Lactic Acid Calcium Ionized Calcium Phosphorus Magnesium Direct Bilirubin AST ALT Alkaline Phosphatase Lactate Dehydrogenase Troponin T C-Reactive Protein Total Protein Albumin Prealbumin Triglycerides Cholesterol LDL Cholesterol Direct HDL Cholesterol 25-OH Vitamin D Total PTH Intact Urine pH Urine WBC (Auto) Urine Creatinine Urine Total Protein Fluid Total Protein Vancomycin Trough Rheumatoid Factor Complement C4 Miscellaneous Test Crossmatch 10/16/16 10/16/16 10/16/16 05:44 06:25 06:25 WBC 22.5 H RBC 2.76 L Hgb 8.3 L Hct 25.2 L MCV MCH MCHC RDW 18.3 H Plt Count Lymph % (Auto) Roberts % (Auto) Lymph # Roberts # Baso # Seg Neutrophils % Seg Neuts % (Manual) Lymphocytes % (Manual) Monocytes % (Manual) Eosinophils % (Manual) Basophils % (Manual) Nucleated RBC % Seg Neutrophils # Seg Neutrophils # Man Lymphocytes # (Manual) Monocytes # (Manual) Eosinophils # (Manual) Basophils # (Manual) PT INR Fibrinogen dRVVT Confirm Interp Factor V Activity POC ABG pH POC ABG pCO2 POC ABG pO2 ABG pO2 ABG HCO3 ABG Base Excess ABG Hemoglobin Oxyhemoglobin Sodium Potassium Chloride Carbon Dioxide BUN 92 H Creatinine 3.0 H Glucose 138 H POC Glucose 110 H Lactic Acid Calcium Ionized Calcium Phosphorus Magnesium Direct Bilirubin AST ALT Alkaline Phosphatase Lactate Dehydrogenase Troponin T C-Reactive Protein Total Protein Albumin Prealbumin Triglycerides Cholesterol LDL Cholesterol Direct HDL Cholesterol 25-OH Vitamin D Total PTH Intact Urine pH Urine WBC (Auto) Urine Creatinine Urine Total Protein Fluid Total Protein Vancomycin Trough Rheumatoid Factor Complement C4 Miscellaneous Test Crossmatch 10/16/16 10/16/16 10/16/16 11:27 11:48 17:36 WBC RBC Hgb Hct MCV MCH MCHC RDW Plt Count Lymph % (Auto) Roberts % (Auto) Lymph # Roberts # Baso # Seg Neutrophils % Seg Neuts % (Manual) Lymphocytes % (Manual) Monocytes % (Manual) Eosinophils % (Manual) Basophils % (Manual) Nucleated RBC % Seg Neutrophils # Seg Neutrophils # Man Lymphocytes # (Manual) Monocytes # (Manual) Eosinophils # (Manual) Basophils # (Manual) PT INR Fibrinogen dRVVT Confirm Interp Factor V Activity POC ABG pH 7.582 H POC ABG pCO2 27.4 L POC ABG pO2 110 H ABG pO2 ABG HCO3 ABG Base Excess ABG Hemoglobin Oxyhemoglobin Sodium Potassium Chloride Carbon Dioxide BUN Creatinine Glucose POC Glucose 121 H 133 H Lactic Acid Calcium Ionized Calcium Phosphorus Magnesium Direct Bilirubin AST ALT Alkaline Phosphatase Lactate Dehydrogenase Troponin T C-Reactive Protein Total Protein Albumin Prealbumin Triglycerides Cholesterol LDL Cholesterol Direct HDL Cholesterol 25-OH Vitamin D Total PTH Intact Urine pH Urine WBC (Auto) Urine Creatinine Urine Total Protein Fluid Total Protein Vancomycin Trough Rheumatoid Factor Complement C4 Miscellaneous Test Crossmatch 10/16/16 10/17/16 10/17/16 20:48 04:24 04:24 WBC 21.4 H RBC 2.72 L Hgb 8.0 L Hct 25.2 L MCV MCH MCHC RDW 18.0 H Plt Count Lymph % (Auto) Roberts % (Auto) Lymph # Roberts # Baso # Seg Neutrophils % Seg Neuts % (Manual) Lymphocytes % (Manual) Monocytes % (Manual) Eosinophils % (Manual) Basophils % (Manual) Nucleated RBC % Seg Neutrophils # Seg Neutrophils # Man Lymphocytes # (Manual) Monocytes # (Manual) Eosinophils # (Manual) Basophils # (Manual) PT INR Fibrinogen dRVVT Confirm Interp Factor V Activity POC ABG pH 7.561 H POC ABG pCO2 24.4 L POC ABG pO2 77 L ABG pO2 ABG HCO3 ABG Base Excess ABG Hemoglobin Oxyhemoglobin Sodium 148 H Potassium Chloride Carbon Dioxide BUN 104 H Creatinine 3.0 H Glucose 149 H POC Glucose Lactic Acid Calcium Ionized Calcium Phosphorus Magnesium Direct Bilirubin AST ALT Alkaline Phosphatase 138 H Lactate Dehydrogenase Troponin T C-Reactive Protein Total Protein 6.2 L Albumin 1.5 L Prealbumin Triglycerides Cholesterol LDL Cholesterol Direct HDL Cholesterol 25-OH Vitamin D Total PTH Intact Urine pH Urine WBC (Auto) Urine Creatinine Urine Total Protein Fluid Total Protein Vancomycin Trough Rheumatoid Factor Complement C4 Miscellaneous Test Crossmatch 10/17/16 10/17/16 10/17/16 06:02 12:17 17:14 WBC RBC Hgb Hct MCV MCH MCHC RDW Plt Count Lymph % (Auto) Roberts % (Auto) Lymph # Roberts # Baso # Seg Neutrophils % Seg Neuts % (Manual) Lymphocytes % (Manual) Monocytes % (Manual) Eosinophils % (Manual) Basophils % (Manual) Nucleated RBC % Seg Neutrophils # Seg Neutrophils # Man Lymphocytes # (Manual) Monocytes # (Manual) Eosinophils # (Manual) Basophils # (Manual) PT INR Fibrinogen dRVVT Confirm Interp Factor V Activity POC ABG pH POC ABG pCO2 POC ABG pO2 ABG pO2 ABG HCO3 ABG Base Excess ABG Hemoglobin Oxyhemoglobin Sodium Potassium Chloride Carbon Dioxide BUN Creatinine Glucose POC Glucose 170 H 167 H 126 H Lactic Acid Calcium Ionized Calcium Phosphorus Magnesium Direct Bilirubin AST ALT Alkaline Phosphatase Lactate Dehydrogenase Troponin T C-Reactive Protein Total Protein Albumin Prealbumin Triglycerides Cholesterol LDL Cholesterol Direct HDL Cholesterol 25-OH Vitamin D Total PTH Intact Urine pH Urine WBC (Auto) Urine Creatinine Urine Total Protein Fluid Total Protein Vancomycin Trough Rheumatoid Factor Complement C4 Miscellaneous Test Crossmatch 10/17/16 10/18/16 10/18/16 23:17 04:00 04:00 WBC 20.7 H RBC 2.47 L Hgb 7.4 L Hct 22.9 L MCV MCH MCHC RDW 17.5 H Plt Count Lymph % (Auto) Roberts % (Auto) Lymph # Roberts # Baso # Seg Neutrophils % Seg Neuts % (Manual) Lymphocytes % (Manual) Monocytes % (Manual) Eosinophils % (Manual) Basophils % (Manual) Nucleated RBC % Seg Neutrophils # Seg Neutrophils # Man Lymphocytes # (Manual) Monocytes # (Manual) Eosinophils # (Manual) Basophils # (Manual) PT INR Fibrinogen dRVVT Confirm Interp Factor V Activity POC ABG pH POC ABG pCO2 POC ABG pO2 ABG pO2 ABG HCO3 ABG Base Excess ABG Hemoglobin Oxyhemoglobin Sodium 149 H Potassium Chloride 107.9 H Carbon Dioxide 20 L BUN 117 H Creatinine 3.2 H Glucose 119 H POC Glucose 121 H Lactic Acid Calcium Ionized Calcium Phosphorus Magnesium Direct Bilirubin AST ALT Alkaline Phosphatase Lactate Dehydrogenase Troponin T C-Reactive Protein Total Protein Albumin Prealbumin Triglycerides Cholesterol LDL Cholesterol Direct HDL Cholesterol 25-OH Vitamin D Total PTH Intact Urine pH Urine WBC (Auto) Urine Creatinine Urine Total Protein Fluid Total Protein Vancomycin Trough Rheumatoid Factor Complement C4 Miscellaneous Test Crossmatch 10/18/16 10/18/16 10/18/16 05:23 10:46 17:30 WBC RBC Hgb Hct MCV MCH MCHC RDW Plt Count Lymph % (Auto) Roberts % (Auto) Lymph # Roberts # Baso # Seg Neutrophils % Seg Neuts % (Manual) Lymphocytes % (Manual) Monocytes % (Manual) Eosinophils % (Manual) Basophils % (Manual) Nucleated RBC % Seg Neutrophils # Seg Neutrophils # Man Lymphocytes # (Manual) Monocytes # (Manual) Eosinophils # (Manual) Basophils # (Manual) PT INR Fibrinogen dRVVT Confirm Interp Factor V Activity POC ABG pH POC ABG pCO2 POC ABG pO2 ABG pO2 ABG HCO3 ABG Base Excess ABG Hemoglobin Oxyhemoglobin Sodium Potassium Chloride Carbon Dioxide BUN Creatinine Glucose POC Glucose 119 H 155 H 124 H Lactic Acid Calcium Ionized Calcium Phosphorus Magnesium Direct Bilirubin AST ALT Alkaline Phosphatase Lactate Dehydrogenase Troponin T C-Reactive Protein Total Protein Albumin Prealbumin Triglycerides Cholesterol LDL Cholesterol Direct HDL Cholesterol 25-OH Vitamin D Total PTH Intact Urine pH Urine WBC (Auto) Urine Creatinine Urine Total Protein Fluid Total Protein Vancomycin Trough Rheumatoid Factor Complement C4 Miscellaneous Test Crossmatch 10/19/16 10/19/16 10/19/16 04:00 04:00 05:25 WBC 17.4 H RBC 2.54 L Hgb 7.7 L Hct 23.6 L MCV MCH MCHC RDW 17.3 H Plt Count Lymph % (Auto) Roberts % (Auto) Lymph # Roberts # Baso # Seg Neutrophils % Seg Neuts % (Manual) Lymphocytes % (Manual) Monocytes % (Manual) Eosinophils % (Manual) Basophils % (Manual) Nucleated RBC % Seg Neutrophils # Seg Neutrophils # Man Lymphocytes # (Manual) Monocytes # (Manual) Eosinophils # (Manual) Basophils # (Manual) PT INR Fibrinogen dRVVT Confirm Interp Factor V Activity POC ABG pH POC ABG pCO2 POC ABG pO2 ABG pO2 ABG HCO3 ABG Base Excess ABG Hemoglobin Oxyhemoglobin Sodium Potassium Chloride Carbon Dioxide BUN 72 H Creatinine 2.1 H Glucose 116 H POC Glucose 119 H Lactic Acid Calcium Ionized Calcium Phosphorus Magnesium Direct Bilirubin AST ALT Alkaline Phosphatase Lactate Dehydrogenase Troponin T C-Reactive Protein Total Protein Albumin Prealbumin Triglycerides Cholesterol LDL Cholesterol Direct HDL Cholesterol 25-OH Vitamin D Total PTH Intact Urine pH Urine WBC (Auto) Urine Creatinine Urine Total Protein Fluid Total Protein Vancomycin Trough Rheumatoid Factor Complement C4 Miscellaneous Test Crossmatch 10/19/16 10/19/16 10/20/16 11:46 23:59 06:00 WBC RBC Hgb Hct MCV MCH MCHC RDW Plt Count Lymph % (Auto) Roberts % (Auto) Lymph # Roberts # Baso # Seg Neutrophils % Seg Neuts % (Manual) Lymphocytes % (Manual) Monocytes % (Manual) Eosinophils % (Manual) Basophils % (Manual) Nucleated RBC % Seg Neutrophils # Seg Neutrophils # Man Lymphocytes # (Manual) Monocytes # (Manual) Eosinophils # (Manual) Basophils # (Manual) PT INR Fibrinogen dRVVT Confirm Interp Factor V Activity POC ABG pH POC ABG pCO2 POC ABG pO2 ABG pO2 ABG HCO3 ABG Base Excess ABG Hemoglobin Oxyhemoglobin Sodium Potassium Chloride Carbon Dioxide 17 L BUN 94 H Creatinine 2.7 H Glucose POC Glucose 116 H 117 H Lactic Acid Calcium Ionized Calcium Phosphorus Magnesium Direct Bilirubin AST ALT Alkaline Phosphatase Lactate Dehydrogenase Troponin T C-Reactive Protein Total Protein Albumin Prealbumin Triglycerides Cholesterol LDL Cholesterol Direct HDL Cholesterol 25-OH Vitamin D Total PTH Intact Urine pH Urine WBC (Auto) Urine Creatinine Urine Total Protein Fluid Total Protein Vancomycin Trough Rheumatoid Factor Complement C4 Miscellaneous Test Crossmatch 10/20/16 10/20/16 10/20/16 06:00 11:49 16:00 WBC 19.7 H RBC 2.51 L Hgb 7.7 L Hct 23.5 L MCV MCH MCHC RDW 17.5 H Plt Count Lymph % (Auto) Roberts % (Auto) Lymph # Roberts # Baso # Seg Neutrophils % Seg Neuts % (Manual) Lymphocytes % (Manual) Monocytes % (Manual) Eosinophils % (Manual) Basophils % (Manual) Nucleated RBC % Seg Neutrophils # Seg Neutrophils # Man Lymphocytes # (Manual) Monocytes # (Manual) Eosinophils # (Manual) Basophils # (Manual) PT INR Fibrinogen dRVVT Confirm Interp Factor V Activity POC ABG pH POC ABG pCO2 POC ABG pO2 ABG pO2 ABG HCO3 ABG Base Excess ABG Hemoglobin Oxyhemoglobin Sodium Potassium Chloride Carbon Dioxide BUN Creatinine Glucose POC Glucose 117 H Lactic Acid Calcium Ionized Calcium Phosphorus Magnesium Direct Bilirubin AST ALT Alkaline Phosphatase Lactate Dehydrogenase Troponin T C-Reactive Protein Total Protein Albumin Prealbumin Triglycerides Cholesterol LDL Cholesterol Direct HDL Cholesterol 25-OH Vitamin D Total PTH Intact Urine pH Urine WBC (Auto) Urine Creatinine Urine Total Protein Fluid Total Protein Vancomycin Trough Rheumatoid Factor Complement C4 Miscellaneous Test Flexitest 1 H Crossmatch 10/20/16 10/20/16 10/21/16 18:36 23:39 04:00 WBC RBC Hgb Hct MCV MCH MCHC RDW Plt Count Lymph % (Auto) Roberts % (Auto) Lymph # Roberts # Baso # Seg Neutrophils % Seg Neuts % (Manual) Lymphocytes % (Manual) Monocytes % (Manual) Eosinophils % (Manual) Basophils % (Manual) Nucleated RBC % Seg Neutrophils # Seg Neutrophils # Man Lymphocytes # (Manual) Monocytes # (Manual) Eosinophils # (Manual) Basophils # (Manual) PT INR Fibrinogen dRVVT Confirm Interp Factor V Activity POC ABG pH POC ABG pCO2 POC ABG pO2 ABG pO2 ABG HCO3 ABG Base Excess ABG Hemoglobin Oxyhemoglobin Sodium Potassium 5.4 H D Chloride Carbon Dioxide 15 L BUN 110 H Creatinine 3.0 H Glucose POC Glucose 127 H 114 H Lactic Acid Calcium Ionized Calcium Phosphorus Magnesium Direct Bilirubin AST ALT Alkaline Phosphatase Lactate Dehydrogenase Troponin T C-Reactive Protein Total Protein Albumin Prealbumin Triglycerides Cholesterol LDL Cholesterol Direct HDL Cholesterol 25-OH Vitamin D Total PTH Intact Urine pH Urine WBC (Auto) Urine Creatinine Urine Total Protein Fluid Total Protein Vancomycin Trough Rheumatoid Factor Complement C4 Miscellaneous Test Crossmatch 10/21/16 10/21/16 10/22/16 05:54 23:46 05:18 WBC RBC Hgb Hct MCV MCH MCHC RDW Plt Count Lymph % (Auto) Roberts % (Auto) Lymph # Roberts # Baso # Seg Neutrophils % Seg Neuts % (Manual) Lymphocytes % (Manual) Monocytes % (Manual) Eosinophils % (Manual) Basophils % (Manual) Nucleated RBC % Seg Neutrophils # Seg Neutrophils # Man Lymphocytes # (Manual) Monocytes # (Manual) Eosinophils # (Manual) Basophils # (Manual) PT INR Fibrinogen dRVVT Confirm Interp Factor V Activity POC ABG pH POC ABG pCO2 POC ABG pO2 ABG pO2 ABG HCO3 ABG Base Excess ABG Hemoglobin Oxyhemoglobin Sodium Potassium Chloride Carbon Dioxide BUN Creatinine Glucose POC Glucose 119 H 108 H 109 H Lactic Acid Calcium Ionized Calcium Phosphorus Magnesium Direct Bilirubin AST ALT Alkaline Phosphatase Lactate Dehydrogenase Troponin T C-Reactive Protein Total Protein Albumin Prealbumin Triglycerides Cholesterol LDL Cholesterol Direct HDL Cholesterol 25-OH Vitamin D Total PTH Intact Urine pH Urine WBC (Auto) Urine Creatinine Urine Total Protein Fluid Total Protein Vancomycin Trough Rheumatoid Factor Complement C4 Miscellaneous Test Crossmatch 10/22/16 10/22/16 10/22/16 06:40 06:40 06:40 WBC 14.0 H RBC 2.03 L Hgb 7.0 L Hct 20.5 L MCV 98 H MCH 34 H MCHC 35 H RDW 17.8 H Plt Count Lymph % (Auto) Roberts % (Auto) 9.9 H Lymph # Roberts # 1.4 H Baso # 0.2 H Seg Neutrophils % 72.0 H Seg Neuts % (Manual) Lymphocytes % (Manual) Monocytes % (Manual) Eosinophils % (Manual) Basophils % (Manual) Nucleated RBC % Seg Neutrophils # 10.0 H Seg Neutrophils # Man Lymphocytes # (Manual) Monocytes # (Manual) Eosinophils # (Manual) Basophils # (Manual) PT INR Fibrinogen dRVVT Confirm Interp Factor V Activity POC ABG pH POC ABG pCO2 POC ABG pO2 ABG pO2 ABG HCO3 ABG Base Excess ABG Hemoglobin Oxyhemoglobin Sodium 130 L D Potassium Chloride 92.4 L Carbon Dioxide 20 L BUN 50 H Creatinine 1.6 H Glucose 589 H* POC Glucose Lactic Acid Calcium 7.8 L D Ionized Calcium Phosphorus Magnesium 1.60 L Direct Bilirubin AST ALT Alkaline Phosphatase Lactate Dehydrogenase Troponin T C-Reactive Protein Total Protein Albumin Prealbumin Triglycerides Cholesterol LDL Cholesterol Direct HDL Cholesterol 25-OH Vitamin D Total PTH Intact Urine pH Urine WBC (Auto) Urine Creatinine Urine Total Protein Fluid Total Protein Vancomycin Trough Rheumatoid Factor Complement C4 Miscellaneous Test Crossmatch 10/22/16 10/22/16 10/22/16 11:39 16:44 23:36 WBC RBC Hgb Hct MCV MCH MCHC RDW Plt Count Lymph % (Auto) Roberts % (Auto) Lymph # Roberts # Baso # Seg Neutrophils % Seg Neuts % (Manual) Lymphocytes % (Manual) Monocytes % (Manual) Eosinophils % (Manual) Basophils % (Manual) Nucleated RBC % Seg Neutrophils # Seg Neutrophils # Man Lymphocytes # (Manual) Monocytes # (Manual) Eosinophils # (Manual) Basophils # (Manual) PT INR Fibrinogen dRVVT Confirm Interp Factor V Activity POC ABG pH POC ABG pCO2 POC ABG pO2 ABG pO2 ABG HCO3 ABG Base Excess ABG Hemoglobin Oxyhemoglobin Sodium Potassium Chloride Carbon Dioxide BUN Creatinine Glucose POC Glucose 142 H 163 H 123 H Lactic Acid Calcium Ionized Calcium Phosphorus Magnesium Direct Bilirubin AST ALT Alkaline Phosphatase Lactate Dehydrogenase Troponin T C-Reactive Protein Total Protein Albumin Prealbumin Triglycerides Cholesterol LDL Cholesterol Direct HDL Cholesterol 25-OH Vitamin D Total PTH Intact Urine pH Urine WBC (Auto) Urine Creatinine Urine Total Protein Fluid Total Protein Vancomycin Trough Rheumatoid Factor Complement C4 Miscellaneous Test Crossmatch 10/23/16 10/23/16 10/23/16 04:58 06:00 12:12 WBC RBC Hgb Hct MCV MCH MCHC RDW Plt Count Lymph % (Auto) Roberts % (Auto) Lymph # Roberts # Baso # Seg Neutrophils % Seg Neuts % (Manual) Lymphocytes % (Manual) Monocytes % (Manual) Eosinophils % (Manual) Basophils % (Manual) Nucleated RBC % Seg Neutrophils # Seg Neutrophils # Man Lymphocytes # (Manual) Monocytes # (Manual) Eosinophils # (Manual) Basophils # (Manual) PT INR Fibrinogen dRVVT Confirm Interp Factor V Activity POC ABG pH POC ABG pCO2 POC ABG pO2 ABG pO2 ABG HCO3 ABG Base Excess ABG Hemoglobin Oxyhemoglobin Sodium 133 L Potassium 3.5 L Chloride 96.1 L Carbon Dioxide 18 L BUN 76 H Creatinine 2.1 H Glucose POC Glucose 133 H 138 H Lactic Acid Calcium 8.3 L Ionized Calcium Phosphorus Magnesium Direct Bilirubin AST ALT Alkaline Phosphatase Lactate Dehydrogenase Troponin T C-Reactive Protein Total Protein Albumin Prealbumin Triglycerides Cholesterol LDL Cholesterol Direct HDL Cholesterol 25-OH Vitamin D Total PTH Intact Urine pH Urine WBC (Auto) Urine Creatinine Urine Total Protein Fluid Total Protein Vancomycin Trough Rheumatoid Factor Complement C4 Miscellaneous Test Crossmatch 10/23/16 10/23/16 10/24/16 16:53 23:37 04:00 WBC RBC Hgb Hct MCV MCH MCHC RDW Plt Count Lymph % (Auto) Roberts % (Auto) Lymph # Roberts # Baso # Seg Neutrophils % Seg Neuts % (Manual) Lymphocytes % (Manual) Monocytes % (Manual) Eosinophils % (Manual) Basophils % (Manual) Nucleated RBC % Seg Neutrophils # Seg Neutrophils # Man Lymphocytes # (Manual) Monocytes # (Manual) Eosinophils # (Manual) Basophils # (Manual) PT INR Fibrinogen dRVVT Confirm Interp Factor V Activity POC ABG pH POC ABG pCO2 POC ABG pO2 ABG pO2 ABG HCO3 ABG Base Excess ABG Hemoglobin Oxyhemoglobin Sodium 131 L Potassium Chloride 94.5 L Carbon Dioxide 19 L BUN 97 H Creatinine 2.6 H Glucose 110 H POC Glucose 125 H 123 H Lactic Acid Calcium 8.3 L Ionized Calcium Phosphorus Magnesium Direct Bilirubin AST ALT Alkaline Phosphatase Lactate Dehydrogenase Troponin T C-Reactive Protein Total Protein Albumin Prealbumin Triglycerides Cholesterol LDL Cholesterol Direct HDL Cholesterol 25-OH Vitamin D Total PTH Intact Urine pH Urine WBC (Auto) Urine Creatinine Urine Total Protein Fluid Total Protein Vancomycin Trough Rheumatoid Factor Complement C4 Miscellaneous Test Crossmatch 10/24/16 10/24/16 10/24/16 07:49 11:39 17:52 WBC RBC Hgb 6.0 L Hct 19.7 L* MCV MCH MCHC RDW Plt Count Lymph % (Auto) Roberts % (Auto) Lymph # Roberts # Baso # Seg Neutrophils % Seg Neuts % (Manual) Lymphocytes % (Manual) Monocytes % (Manual) Eosinophils % (Manual) Basophils % (Manual) Nucleated RBC % Seg Neutrophils # Seg Neutrophils # Man Lymphocytes # (Manual) Monocytes # (Manual) Eosinophils # (Manual) Basophils # (Manual) PT INR Fibrinogen dRVVT Confirm Interp Factor V Activity POC ABG pH POC ABG pCO2 POC ABG pO2 ABG pO2 ABG HCO3 ABG Base Excess ABG Hemoglobin Oxyhemoglobin Sodium Potassium Chloride Carbon Dioxide BUN Creatinine Glucose POC Glucose 106 H 158 H Lactic Acid Calcium Ionized Calcium Phosphorus Magnesium Direct Bilirubin AST ALT Alkaline Phosphatase Lactate Dehydrogenase Troponin T C-Reactive Protein Total Protein Albumin Prealbumin Triglycerides Cholesterol LDL Cholesterol Direct HDL Cholesterol 25-OH Vitamin D Total PTH Intact Urine pH Urine WBC (Auto) Urine Creatinine Urine Total Protein Fluid Total Protein Vancomycin Trough Rheumatoid Factor Complement C4 Miscellaneous Test Crossmatch 10/24/16 10/24/16 10/24/16 20:00 22:27 Unknown WBC RBC Hgb 9.4 L D Hct 27.5 L D MCV MCH MCHC RDW Plt Count Lymph % (Auto) Roberts % (Auto) Lymph # Roberts # Baso # Seg Neutrophils % Seg Neuts % (Manual) Lymphocytes % (Manual) Monocytes % (Manual) Eosinophils % (Manual) Basophils % (Manual) Nucleated RBC % Seg Neutrophils # Seg Neutrophils # Man Lymphocytes # (Manual) Monocytes # (Manual) Eosinophils # (Manual) Basophils # (Manual) PT INR Fibrinogen dRVVT Confirm Interp Factor V Activity POC ABG pH POC ABG pCO2 POC ABG pO2 ABG pO2 ABG HCO3 ABG Base Excess ABG Hemoglobin Oxyhemoglobin Sodium Potassium Chloride Carbon Dioxide BUN Creatinine Glucose POC Glucose 125 H Lactic Acid Calcium Ionized Calcium Phosphorus Magnesium Direct Bilirubin AST ALT Alkaline Phosphatase Lactate Dehydrogenase Troponin T C-Reactive Protein Total Protein Albumin Prealbumin Triglycerides Cholesterol LDL Cholesterol Direct HDL Cholesterol 25-OH Vitamin D Total PTH Intact Urine pH Urine WBC (Auto) Urine Creatinine Urine Total Protein Fluid Total Protein Vancomycin Trough Rheumatoid Factor Complement C4 Miscellaneous Test Crossmatch See Detail 10/25/16 10/25/16 10/25/16 04:00 04:00 04:00 WBC 14.2 H RBC 2.98 L Hgb 9.0 L Hct 26.2 L MCV MCH MCHC RDW 16.6 H Plt Count Lymph % (Auto) Roberts % (Auto) 10.7 H Lymph # Roberts # 1.5 H Baso # Seg Neutrophils % 73.6 H Seg Neuts % (Manual) Lymphocytes % (Manual) Monocytes % (Manual) Eosinophils % (Manual) Basophils % (Manual) Nucleated RBC % Seg Neutrophils # 10.5 H Seg Neutrophils # Man Lymphocytes # (Manual) Monocytes # (Manual) Eosinophils # (Manual) Basophils # (Manual) PT INR Fibrinogen dRVVT Confirm Interp Factor V Activity POC ABG pH POC ABG pCO2 POC ABG pO2 ABG pO2 ABG HCO3 ABG Base Excess ABG Hemoglobin Oxyhemoglobin Sodium 132 L Potassium Chloride 94.7 L Carbon Dioxide BUN 51 H Creatinine 1.6 H Glucose 130 H POC Glucose Lactic Acid Calcium 8.3 L Ionized Calcium Phosphorus 1.60 L D Magnesium Direct Bilirubin AST ALT Alkaline Phosphatase Lactate Dehydrogenase Troponin T C-Reactive Protein Total Protein Albumin Prealbumin Triglycerides Cholesterol LDL Cholesterol Direct HDL Cholesterol 25-OH Vitamin D Total PTH Intact Urine pH Urine WBC (Auto) Urine Creatinine Urine Total Protein Fluid Total Protein Vancomycin Trough Rheumatoid Factor Complement C4 Miscellaneous Test Crossmatch 10/25/16 10/25/16 10/25/16 04:32 11:48 17:22 WBC RBC Hgb Hct MCV MCH MCHC RDW Plt Count Lymph % (Auto) Roberts % (Auto) Lymph # Roberts # Baso # Seg Neutrophils % Seg Neuts % (Manual) Lymphocytes % (Manual) Monocytes % (Manual) Eosinophils % (Manual) Basophils % (Manual) Nucleated RBC % Seg Neutrophils # Seg Neutrophils # Man Lymphocytes # (Manual) Monocytes # (Manual) Eosinophils # (Manual) Basophils # (Manual) PT INR Fibrinogen dRVVT Confirm Interp Factor V Activity POC ABG pH POC ABG pCO2 POC ABG pO2 ABG pO2 ABG HCO3 ABG Base Excess ABG Hemoglobin Oxyhemoglobin Sodium Potassium Chloride Carbon Dioxide BUN Creatinine Glucose POC Glucose 124 H 171 H 120 H Lactic Acid Calcium Ionized Calcium Phosphorus Magnesium Direct Bilirubin AST ALT Alkaline Phosphatase Lactate Dehydrogenase Troponin T C-Reactive Protein Total Protein Albumin Prealbumin Triglycerides Cholesterol LDL Cholesterol Direct HDL Cholesterol 25-OH Vitamin D Total PTH Intact Urine pH Urine WBC (Auto) Urine Creatinine Urine Total Protein Fluid Total Protein Vancomycin Trough Rheumatoid Factor Complement C4 Miscellaneous Test Crossmatch 10/26/16 10/26/16 10/26/16 04:54 07:06 07:06 WBC 16.9 H RBC 3.06 L Hgb 9.1 L Hct 26.9 L MCV MCH MCHC RDW 16.9 H Plt Count Lymph % (Auto) Roberts % (Auto) Lymph # Roberts # Baso # Seg Neutrophils % Seg Neuts % (Manual) 71.0 H Lymphocytes % (Manual) 5.0 L Monocytes % (Manual) 12.0 H Eosinophils % (Manual) Basophils % (Manual) Nucleated RBC % Seg Neutrophils # Seg Neutrophils # Man 12.0 H Lymphocytes # (Manual) 0.8 L Monocytes # (Manual) 2.0 H Eosinophils # (Manual) Basophils # (Manual) PT INR Fibrinogen dRVVT Confirm Interp Factor V Activity POC ABG pH POC ABG pCO2 POC ABG pO2 ABG pO2 ABG HCO3 ABG Base Excess ABG Hemoglobin Oxyhemoglobin Sodium 135 L Potassium Chloride 97.1 L Carbon Dioxide BUN 73 H Creatinine 2.2 H Glucose 117 H POC Glucose 123 H Lactic Acid Calcium Ionized Calcium Phosphorus 1.70 L Magnesium Direct Bilirubin AST ALT Alkaline Phosphatase Lactate Dehydrogenase Troponin T C-Reactive Protein Total Protein Albumin Prealbumin Triglycerides Cholesterol LDL Cholesterol Direct HDL Cholesterol 25-OH Vitamin D Total PTH Intact Urine pH Urine WBC (Auto) Urine Creatinine Urine Total Protein Fluid Total Protein Vancomycin Trough Rheumatoid Factor Complement C4 Miscellaneous Test Crossmatch 10/26/16 10/26/16 10/26/16 12:12 17:29 23:42 WBC RBC Hgb Hct MCV MCH MCHC RDW Plt Count Lymph % (Auto) Roberts % (Auto) Lymph # Roberts # Baso # Seg Neutrophils % Seg Neuts % (Manual) Lymphocytes % (Manual) Monocytes % (Manual) Eosinophils % (Manual) Basophils % (Manual) Nucleated RBC % Seg Neutrophils # Seg Neutrophils # Man Lymphocytes # (Manual) Monocytes # (Manual) Eosinophils # (Manual) Basophils # (Manual) PT INR Fibrinogen dRVVT Confirm Interp Factor V Activity POC ABG pH POC ABG pCO2 POC ABG pO2 ABG pO2 ABG HCO3 ABG Base Excess ABG Hemoglobin Oxyhemoglobin Sodium Potassium Chloride Carbon Dioxide BUN Creatinine Glucose POC Glucose 126 H 161 H 118 H Lactic Acid Calcium Ionized Calcium Phosphorus Magnesium Direct Bilirubin AST ALT Alkaline Phosphatase Lactate Dehydrogenase Troponin T C-Reactive Protein Total Protein Albumin Prealbumin Triglycerides Cholesterol LDL Cholesterol Direct HDL Cholesterol 25-OH Vitamin D Total PTH Intact Urine pH Urine WBC (Auto) Urine Creatinine Urine Total Protein Fluid Total Protein Vancomycin Trough Rheumatoid Factor Complement C4 Miscellaneous Test Crossmatch 10/27/16 10/27/16 10/27/16 05:03 06:30 06:30 WBC 13.9 H RBC 3.09 L Hgb 9.2 L Hct 27.5 L MCV MCH MCHC RDW 17.0 H Plt Count Lymph % (Auto) Roberts % (Auto) Lymph # Roberts # Baso # Seg Neutrophils % Seg Neuts % (Manual) 78.0 H Lymphocytes % (Manual) Monocytes % (Manual) Eosinophils % (Manual) Basophils % (Manual) Nucleated RBC % 2.0 H Seg Neutrophils # Seg Neutrophils # Man 10.8 H Lymphocytes # (Manual) Monocytes # (Manual) 1.0 H Eosinophils # (Manual) Basophils # (Manual) PT INR Fibrinogen dRVVT Confirm Interp Factor V Activity POC ABG pH POC ABG pCO2 POC ABG pO2 ABG pO2 ABG HCO3 ABG Base Excess ABG Hemoglobin Oxyhemoglobin Sodium Potassium Chloride Carbon Dioxide BUN 40 H Creatinine 1.5 H Glucose 135 H POC Glucose 107 H Lactic Acid Calcium 8.3 L Ionized Calcium Phosphorus 1.30 L D Magnesium Direct Bilirubin AST ALT Alkaline Phosphatase Lactate Dehydrogenase Troponin T C-Reactive Protein Total Protein Albumin Prealbumin Triglycerides Cholesterol LDL Cholesterol Direct HDL Cholesterol 25-OH Vitamin D Total PTH Intact Urine pH Urine WBC (Auto) Urine Creatinine Urine Total Protein Fluid Total Protein Vancomycin Trough Rheumatoid Factor Complement C4 Miscellaneous Test Crossmatch 10/27/16 10/27/16 10/27/16 13:27 18:07 23:40 WBC RBC Hgb Hct MCV MCH MCHC RDW Plt Count Lymph % (Auto) Roberts % (Auto) Lymph # Roberts # Baso # Seg Neutrophils % Seg Neuts % (Manual) Lymphocytes % (Manual) Monocytes % (Manual) Eosinophils % (Manual) Basophils % (Manual) Nucleated RBC % Seg Neutrophils # Seg Neutrophils # Man Lymphocytes # (Manual) Monocytes # (Manual) Eosinophils # (Manual) Basophils # (Manual) PT INR Fibrinogen dRVVT Confirm Interp Factor V Activity POC ABG pH POC ABG pCO2 POC ABG pO2 ABG pO2 ABG HCO3 ABG Base Excess ABG Hemoglobin Oxyhemoglobin Sodium Potassium Chloride Carbon Dioxide BUN Creatinine Glucose POC Glucose 117 H 121 H 118 H Lactic Acid Calcium Ionized Calcium Phosphorus Magnesium Direct Bilirubin AST ALT Alkaline Phosphatase Lactate Dehydrogenase Troponin T C-Reactive Protein Total Protein Albumin Prealbumin Triglycerides Cholesterol LDL Cholesterol Direct HDL Cholesterol 25-OH Vitamin D Total PTH Intact Urine pH Urine WBC (Auto) Urine Creatinine Urine Total Protein Fluid Total Protein Vancomycin Trough Rheumatoid Factor Complement C4 Miscellaneous Test Crossmatch 10/28/16 10/28/16 10/28/16 05:48 06:45 06:45 WBC 14.7 H RBC 3.05 L Hgb 9.0 L Hct 26.9 L MCV MCH MCHC RDW 16.8 H Plt Count Lymph % (Auto) 8.2 L Roberts % (Auto) 8.4 H Lymph # Roberts # 1.2 H Baso # Seg Neutrophils % 81.9 H Seg Neuts % (Manual) Lymphocytes % (Manual) Monocytes % (Manual) Eosinophils % (Manual) Basophils % (Manual) Nucleated RBC % Seg Neutrophils # 12.1 H Seg Neutrophils # Man Lymphocytes # (Manual) Monocytes # (Manual) Eosinophils # (Manual) Basophils # (Manual) PT INR Fibrinogen dRVVT Confirm Interp Factor V Activity POC ABG pH POC ABG pCO2 POC ABG pO2 ABG pO2 ABG HCO3 ABG Base Excess ABG Hemoglobin Oxyhemoglobin Sodium Potassium Chloride Carbon Dioxide BUN 60 H Creatinine 1.9 H Glucose 120 H POC Glucose 114 H Lactic Acid Calcium Ionized Calcium Phosphorus Magnesium Direct Bilirubin AST ALT Alkaline Phosphatase Lactate Dehydrogenase Troponin T C-Reactive Protein Total Protein Albumin Prealbumin Triglycerides Cholesterol LDL Cholesterol Direct HDL Cholesterol 25-OH Vitamin D Total PTH Intact Urine pH Urine WBC (Auto) Urine Creatinine Urine Total Protein Fluid Total Protein Vancomycin Trough Rheumatoid Factor Complement C4 Miscellaneous Test Crossmatch 09/08/17 09/08/17 09/09/17 17:08 23:50 05:10 WBC RBC Hgb Hct MCV MCH MCHC RDW Plt Count Lymph % (Auto) Roberts % (Auto) Lymph # Roberts # Baso # Seg Neutrophils % Seg Neuts % (Manual) Lymphocytes % (Manual) Monocytes % (Manual) Eosinophils % (Manual) Basophils % (Manual) Nucleated RBC % Seg Neutrophils # Seg Neutrophils # Man Lymphocytes # (Manual) Monocytes # (Manual) Eosinophils # (Manual) Basophils # (Manual) PT INR Fibrinogen dRVVT Confirm Interp Factor V Activity POC ABG pH POC ABG pCO2 POC ABG pO2 ABG pO2 ABG HCO3 ABG Base Excess ABG Hemoglobin Oxyhemoglobin Sodium Potassium Chloride Carbon Dioxide BUN Creatinine Glucose POC Glucose 109 H 110 H 124 H Lactic Acid Calcium Ionized Calcium Phosphorus Magnesium Direct Bilirubin AST ALT Alkaline Phosphatase Lactate Dehydrogenase Troponin T C-Reactive Protein Total Protein Albumin Prealbumin Triglycerides Cholesterol LDL Cholesterol Direct HDL Cholesterol 25-OH Vitamin D Total PTH Intact Urine pH Urine WBC (Auto) Urine Creatinine Urine Total Protein Fluid Total Protein Vancomycin Trough Rheumatoid Factor Complement C4 Miscellaneous Test Crossmatch 10/29/16 10/29/16 10/29/16 07:45 07:45 12:19 WBC 14.7 H RBC 3.15 L Hgb 9.3 L Hct 28.9 L MCV MCH MCHC RDW 17.0 H Plt Count Lymph % (Auto) 11.9 L Roberts % (Auto) 8.6 H Lymph # Roberts # 1.3 H Baso # Seg Neutrophils % 78.1 H Seg Neuts % (Manual) Lymphocytes % (Manual) Monocytes % (Manual) Eosinophils % (Manual) Basophils % (Manual) Nucleated RBC % Seg Neutrophils # 11.4 H Seg Neutrophils # Man Lymphocytes # (Manual) Monocytes # (Manual) Eosinophils # (Manual) Basophils # (Manual) PT INR Fibrinogen dRVVT Confirm Interp Factor V Activity POC ABG pH POC ABG pCO2 POC ABG pO2 ABG pO2 ABG HCO3 ABG Base Excess ABG Hemoglobin Oxyhemoglobin Sodium Potassium 5.1 H Chloride Carbon Dioxide 19 L BUN 78 H Creatinine 2.2 H Glucose 116 H POC Glucose 118 H Lactic Acid Calcium Ionized Calcium Phosphorus Magnesium Direct Bilirubin AST ALT Alkaline Phosphatase Lactate Dehydrogenase Troponin T C-Reactive Protein Total Protein Albumin Prealbumin Triglycerides Cholesterol LDL Cholesterol Direct HDL Cholesterol 25-OH Vitamin D Total PTH Intact Urine pH Urine WBC (Auto) Urine Creatinine Urine Total Protein Fluid Total Protein Vancomycin Trough Rheumatoid Factor Complement C4 Miscellaneous Test Crossmatch 10/29/16 10/30/16 10/30/16 17:49 01:52 03:28 WBC RBC Hgb Hct MCV MCH MCHC RDW Plt Count Lymph % (Auto) Roberts % (Auto) Lymph # Roberts # Baso # Seg Neutrophils % Seg Neuts % (Manual) Lymphocytes % (Manual) Monocytes % (Manual) Eosinophils % (Manual) Basophils % (Manual) Nucleated RBC % Seg Neutrophils # Seg Neutrophils # Man Lymphocytes # (Manual) Monocytes # (Manual) Eosinophils # (Manual) Basophils # (Manual) PT INR Fibrinogen dRVVT Confirm Interp Factor V Activity POC ABG pH POC ABG pCO2 POC ABG pO2 ABG pO2 ABG HCO3 ABG Base Excess ABG Hemoglobin Oxyhemoglobin Sodium Potassium 5.4 H Chloride 97.5 L Carbon Dioxide 19 L BUN 90 H Creatinine 2.5 H Glucose POC Glucose 120 H 129 H Lactic Acid Calcium Ionized Calcium Phosphorus 5.20 H Magnesium Direct Bilirubin AST ALT Alkaline Phosphatase Lactate Dehydrogenase Troponin T C-Reactive Protein Total Protein Albumin Prealbumin Triglycerides Cholesterol LDL Cholesterol Direct HDL Cholesterol 25-OH Vitamin D Total PTH Intact Urine pH Urine WBC (Auto) Urine Creatinine Urine Total Protein Fluid Total Protein Vancomycin Trough Rheumatoid Factor Complement C4 Miscellaneous Test Crossmatch 10/30/16 10/30/16 10/30/16 03:28 08:19 08:19 WBC 11.6 H 15.9 H RBC 2.75 L 2.82 L Hgb 7.9 L 8.3 L Hct 24.2 L 25.2 L MCV MCH MCHC RDW 16.7 H 17.2 H Plt Count Lymph % (Auto) Roberts % (Auto) 9.8 H Lymph # Roberts # 1.1 H Baso # Seg Neutrophils % 74.2 H Seg Neuts % (Manual) Lymphocytes % (Manual) Monocytes % (Manual) Eosinophils % (Manual) Basophils % (Manual) Nucleated RBC % Seg Neutrophils # 8.6 H Seg Neutrophils # Man Lymphocytes # (Manual) Monocytes # (Manual) Eosinophils # (Manual) Basophils # (Manual) PT INR Fibrinogen dRVVT Confirm Interp Factor V Activity POC ABG pH POC ABG pCO2 POC ABG pO2 ABG pO2 ABG HCO3 ABG Base Excess ABG Hemoglobin Oxyhemoglobin Sodium Potassium 5.3 H Chloride 97.4 L Carbon Dioxide 19 L BUN 93 H Creatinine 2.6 H Glucose POC Glucose Lactic Acid Calcium Ionized Calcium Phosphorus Magnesium Direct Bilirubin AST ALT Alkaline Phosphatase Lactate Dehydrogenase Troponin T C-Reactive Protein Total Protein Albumin Prealbumin Triglycerides Cholesterol LDL Cholesterol Direct HDL Cholesterol 25-OH Vitamin D Total PTH Intact Urine pH Urine WBC (Auto) Urine Creatinine Urine Total Protein Fluid Total Protein Vancomycin Trough Rheumatoid Factor Complement C4 Miscellaneous Test Crossmatch 10/30/16 10/30/16 10/31/16 17:11 23:56 00:40 WBC RBC Hgb Hct MCV MCH MCHC RDW Plt Count Lymph % (Auto) Roberts % (Auto) Lymph # Roberts # Baso # Seg Neutrophils % Seg Neuts % (Manual) Lymphocytes % (Manual) Monocytes % (Manual) Eosinophils % (Manual) Basophils % (Manual) Nucleated RBC % Seg Neutrophils # Seg Neutrophils # Man Lymphocytes # (Manual) Monocytes # (Manual) Eosinophils # (Manual) Basophils # (Manual) PT INR Fibrinogen dRVVT Confirm Interp Factor V Activity POC ABG pH POC ABG pCO2 POC ABG pO2 ABG pO2 ABG HCO3 ABG Base Excess ABG Hemoglobin Oxyhemoglobin Sodium Potassium Chloride Carbon Dioxide BUN Creatinine Glucose POC Glucose 106 H 117 H 120 H Lactic Acid Calcium Ionized Calcium Phosphorus Magnesium Direct Bilirubin AST ALT Alkaline Phosphatase Lactate Dehydrogenase Troponin T C-Reactive Protein Total Protein Albumin Prealbumin Triglycerides Cholesterol LDL Cholesterol Direct HDL Cholesterol 25-OH Vitamin D Total PTH Intact Urine pH Urine WBC (Auto) Urine Creatinine Urine Total Protein Fluid Total Protein Vancomycin Trough Rheumatoid Factor Complement C4 Miscellaneous Test Crossmatch 10/31/16 10/31/16 10/31/16 05:43 07:15 07:15 WBC 12.1 H RBC 2.63 L Hgb 7.7 L Hct 23.3 L MCV MCH MCHC RDW 16.7 H Plt Count Lymph % (Auto) 11.7 L Roberts % (Auto) 7.7 H Lymph # Roberts # 0.9 H Baso # Seg Neutrophils % 78.0 H Seg Neuts % (Manual) Lymphocytes % (Manual) Monocytes % (Manual) Eosinophils % (Manual) Basophils % (Manual) Nucleated RBC % Seg Neutrophils # 9.4 H Seg Neutrophils # Man Lymphocytes # (Manual) Monocytes # (Manual) Eosinophils # (Manual) Basophils # (Manual) PT INR Fibrinogen dRVVT Confirm Interp Factor V Activity POC ABG pH POC ABG pCO2 POC ABG pO2 ABG pO2 ABG HCO3 ABG Base Excess ABG Hemoglobin Oxyhemoglobin Sodium Potassium Chloride 96.4 L Carbon Dioxide 21 L BUN 99 H Creatinine 2.6 H Glucose 144 H POC Glucose 125 H Lactic Acid Calcium Ionized Calcium Phosphorus 4.80 H Magnesium Direct Bilirubin AST ALT Alkaline Phosphatase Lactate Dehydrogenase Troponin T C-Reactive Protein Total Protein Albumin Prealbumin Triglycerides Cholesterol LDL Cholesterol Direct HDL Cholesterol 25-OH Vitamin D Total PTH Intact Urine pH Urine WBC (Auto) Urine Creatinine Urine Total Protein Fluid Total Protein Vancomycin Trough Rheumatoid Factor Complement C4 Miscellaneous Test Crossmatch 10/31/16 10/31/16 11/01/16 11:46 18:34 00:20 WBC RBC Hgb Hct MCV MCH MCHC RDW Plt Count Lymph % (Auto) Roberts % (Auto) Lymph # Roberts # Baso # Seg Neutrophils % Seg Neuts % (Manual) Lymphocytes % (Manual) Monocytes % (Manual) Eosinophils % (Manual) Basophils % (Manual) Nucleated RBC % Seg Neutrophils # Seg Neutrophils # Man Lymphocytes # (Manual) Monocytes # (Manual) Eosinophils # (Manual) Basophils # (Manual) PT INR Fibrinogen dRVVT Confirm Interp Factor V Activity POC ABG pH POC ABG pCO2 POC ABG pO2 ABG pO2 ABG HCO3 ABG Base Excess ABG Hemoglobin Oxyhemoglobin Sodium Potassium Chloride Carbon Dioxide BUN Creatinine Glucose POC Glucose 159 H 140 H 132 H Lactic Acid Calcium Ionized Calcium Phosphorus Magnesium Direct Bilirubin AST ALT Alkaline Phosphatase Lactate Dehydrogenase Troponin T C-Reactive Protein Total Protein Albumin Prealbumin Triglycerides Cholesterol LDL Cholesterol Direct HDL Cholesterol 25-OH Vitamin D Total PTH Intact Urine pH Urine WBC (Auto) Urine Creatinine Urine Total Protein Fluid Total Protein Vancomycin Trough Rheumatoid Factor Complement C4 Miscellaneous Test Crossmatch 11/01/16 11/01/16 11/01/16 04:55 04:55 06:11 WBC 11.2 H RBC 2.68 L Hgb 7.5 L Hct 23.7 L MCV MCH MCHC RDW 16.1 H Plt Count Lymph % (Auto) Roberts % (Auto) 9.8 H Lymph # Roberts # 1.1 H Baso # Seg Neutrophils % 70.8 H Seg Neuts % (Manual) Lymphocytes % (Manual) Monocytes % (Manual) Eosinophils % (Manual) Basophils % (Manual) Nucleated RBC % Seg Neutrophils # 7.9 H Seg Neutrophils # Man Lymphocytes # (Manual) Monocytes # (Manual) Eosinophils # (Manual) Basophils # (Manual) PT INR Fibrinogen dRVVT Confirm Interp Factor V Activity POC ABG pH POC ABG pCO2 POC ABG pO2 ABG pO2 ABG HCO3 ABG Base Excess ABG Hemoglobin Oxyhemoglobin Sodium Potassium 3.3 L D Chloride Carbon Dioxide BUN 61 H Creatinine 1.9 H Glucose 114 H POC Glucose 115 H Lactic Acid Calcium Ionized Calcium Phosphorus 1.80 L D Magnesium Direct Bilirubin AST ALT Alkaline Phosphatase Lactate Dehydrogenase Troponin T C-Reactive Protein Total Protein Albumin Prealbumin Triglycerides Cholesterol LDL Cholesterol Direct HDL Cholesterol 25-OH Vitamin D Total PTH Intact Urine pH Urine WBC (Auto) Urine Creatinine Urine Total Protein Fluid Total Protein Vancomycin Trough Rheumatoid Factor Complement C4 Miscellaneous Test Crossmatch 11/01/16 11/01/16 11/01/16 12:29 18:23 23:58 WBC RBC Hgb Hct MCV MCH MCHC RDW Plt Count Lymph % (Auto) Roberts % (Auto) Lymph # Roberts # Baso # Seg Neutrophils % Seg Neuts % (Manual) Lymphocytes % (Manual) Monocytes % (Manual) Eosinophils % (Manual) Basophils % (Manual) Nucleated RBC % Seg Neutrophils # Seg Neutrophils # Man Lymphocytes # (Manual) Monocytes # (Manual) Eosinophils # (Manual) Basophils # (Manual) PT INR Fibrinogen dRVVT Confirm Interp Factor V Activity POC ABG pH POC ABG pCO2 POC ABG pO2 ABG pO2 ABG HCO3 ABG Base Excess ABG Hemoglobin Oxyhemoglobin Sodium Potassium Chloride Carbon Dioxide BUN Creatinine Glucose POC Glucose 142 H 143 H 128 H Lactic Acid Calcium Ionized Calcium Phosphorus Magnesium Direct Bilirubin AST ALT Alkaline Phosphatase Lactate Dehydrogenase Troponin T C-Reactive Protein Total Protein Albumin Prealbumin Triglycerides Cholesterol LDL Cholesterol Direct HDL Cholesterol 25-OH Vitamin D Total PTH Intact Urine pH Urine WBC (Auto) Urine Creatinine Urine Total Protein Fluid Total Protein Vancomycin Trough Rheumatoid Factor Complement C4 Miscellaneous Test Crossmatch 11/02/16 11/02/16 11/02/16 04:16 05:29 11:58 WBC RBC Hgb Hct MCV MCH MCHC RDW Plt Count Lymph % (Auto) Roberts % (Auto) Lymph # Roberts # Baso # Seg Neutrophils % Seg Neuts % (Manual) Lymphocytes % (Manual) Monocytes % (Manual) Eosinophils % (Manual) Basophils % (Manual) Nucleated RBC % Seg Neutrophils # Seg Neutrophils # Man Lymphocytes # (Manual) Monocytes # (Manual) Eosinophils # (Manual) Basophils # (Manual) PT INR Fibrinogen dRVVT Confirm Interp Factor V Activity POC ABG pH POC ABG pCO2 POC ABG pO2 ABG pO2 ABG HCO3 ABG Base Excess ABG Hemoglobin Oxyhemoglobin Sodium Potassium 3.1 L Chloride Carbon Dioxide BUN 73 H Creatinine 2.3 H Glucose 112 H POC Glucose 135 H 149 H Lactic Acid Calcium Ionized Calcium Phosphorus Magnesium Direct Bilirubin AST ALT Alkaline Phosphatase Lactate Dehydrogenase Troponin T C-Reactive Protein Total Protein Albumin Prealbumin Triglycerides Cholesterol LDL Cholesterol Direct HDL Cholesterol 25-OH Vitamin D Total PTH Intact Urine pH Urine WBC (Auto) Urine Creatinine Urine Total Protein Fluid Total Protein Vancomycin Trough Rheumatoid Factor Complement C4 Miscellaneous Test Crossmatch 11/02/16 11/02/16 11/03/16 17:42 22:54 06:00 WBC RBC Hgb Hct MCV MCH MCHC RDW Plt Count Lymph % (Auto) Roberts % (Auto) Lymph # Roberts # Baso # Seg Neutrophils % Seg Neuts % (Manual) Lymphocytes % (Manual) Monocytes % (Manual) Eosinophils % (Manual) Basophils % (Manual) Nucleated RBC % Seg Neutrophils # Seg Neutrophils # Man Lymphocytes # (Manual) Monocytes # (Manual) Eosinophils # (Manual) Basophils # (Manual) PT INR Fibrinogen dRVVT Confirm Interp Factor V Activity POC ABG pH POC ABG pCO2 POC ABG pO2 ABG pO2 ABG HCO3 ABG Base Excess ABG Hemoglobin Oxyhemoglobin Sodium Potassium Chloride 96.7 L Carbon Dioxide BUN 41 H Creatinine 1.5 H Glucose 145 H POC Glucose 182 H 115 H Lactic Acid Calcium Ionized Calcium Phosphorus 1.60 L D Magnesium 1.50 L Direct Bilirubin AST ALT Alkaline Phosphatase Lactate Dehydrogenase Troponin T C-Reactive Protein Total Protein Albumin Prealbumin Triglycerides Cholesterol LDL Cholesterol Direct HDL Cholesterol 25-OH Vitamin D Total PTH Intact Urine pH Urine WBC (Auto) Urine Creatinine Urine Total Protein Fluid Total Protein Vancomycin Trough Rheumatoid Factor Complement C4 Miscellaneous Test Crossmatch 11/03/16 11/03/16 11/03/16 11:53 17:45 23:37 WBC RBC Hgb Hct MCV MCH MCHC RDW Plt Count Lymph % (Auto) Roberts % (Auto) Lymph # Roberts # Baso # Seg Neutrophils % Seg Neuts % (Manual) Lymphocytes % (Manual) Monocytes % (Manual) Eosinophils % (Manual) Basophils % (Manual) Nucleated RBC % Seg Neutrophils # Seg Neutrophils # Man Lymphocytes # (Manual) Monocytes # (Manual) Eosinophils # (Manual) Basophils # (Manual) PT INR Fibrinogen dRVVT Confirm Interp Factor V Activity POC ABG pH POC ABG pCO2 POC ABG pO2 ABG pO2 ABG HCO3 ABG Base Excess ABG Hemoglobin Oxyhemoglobin Sodium Potassium Chloride Carbon Dioxide BUN Creatinine Glucose POC Glucose 131 H 134 H 113 H Lactic Acid Calcium Ionized Calcium Phosphorus Magnesium Direct Bilirubin AST ALT Alkaline Phosphatase Lactate Dehydrogenase Troponin T C-Reactive Protein Total Protein Albumin Prealbumin Triglycerides Cholesterol LDL Cholesterol Direct HDL Cholesterol 25-OH Vitamin D Total PTH Intact Urine pH Urine WBC (Auto) Urine Creatinine Urine Total Protein Fluid Total Protein Vancomycin Trough Rheumatoid Factor Complement C4 Miscellaneous Test Crossmatch 11/04/16 11/04/16 11/04/16 05:41 06:00 12:10 WBC RBC Hgb Hct MCV MCH MCHC RDW Plt Count Lymph % (Auto) Roberts % (Auto) Lymph # Roberts # Baso # Seg Neutrophils % Seg Neuts % (Manual) Lymphocytes % (Manual) Monocytes % (Manual) Eosinophils % (Manual) Basophils % (Manual) Nucleated RBC % Seg Neutrophils # Seg Neutrophils # Man Lymphocytes # (Manual) Monocytes # (Manual) Eosinophils # (Manual) Basophils # (Manual) PT INR Fibrinogen dRVVT Confirm Interp Factor V Activity POC ABG pH POC ABG pCO2 POC ABG pO2 ABG pO2 ABG HCO3 ABG Base Excess ABG Hemoglobin Oxyhemoglobin Sodium Potassium Chloride 96.7 L Carbon Dioxide BUN 52 H Creatinine 1.9 H Glucose 126 H POC Glucose 137 H 191 H Lactic Acid Calcium Ionized Calcium Phosphorus Magnesium Direct Bilirubin AST ALT Alkaline Phosphatase Lactate Dehydrogenase Troponin T C-Reactive Protein Total Protein Albumin Prealbumin Triglycerides Cholesterol LDL Cholesterol Direct HDL Cholesterol 25-OH Vitamin D Total PTH Intact Urine pH Urine WBC (Auto) Urine Creatinine Urine Total Protein Fluid Total Protein Vancomycin Trough Rheumatoid Factor Complement C4 Miscellaneous Test Crossmatch 11/04/16 11/05/16 11/05/16 22:57 03:10 05:10 WBC RBC Hgb Hct MCV MCH MCHC RDW Plt Count Lymph % (Auto) Roberts % (Auto) Lymph # Roberts # Baso # Seg Neutrophils % Seg Neuts % (Manual) Lymphocytes % (Manual) Monocytes % (Manual) Eosinophils % (Manual) Basophils % (Manual) Nucleated RBC % Seg Neutrophils # Seg Neutrophils # Man Lymphocytes # (Manual) Monocytes # (Manual) Eosinophils # (Manual) Basophils # (Manual) PT INR Fibrinogen dRVVT Confirm Interp Factor V Activity POC ABG pH POC ABG pCO2 POC ABG pO2 ABG pO2 ABG HCO3 ABG Base Excess ABG Hemoglobin Oxyhemoglobin Sodium 136 L Potassium Chloride 97.2 L Carbon Dioxide BUN 32 H Creatinine 1.3 H Glucose 123 H POC Glucose 125 H 108 H Lactic Acid Calcium 7.8 L Ionized Calcium Phosphorus Magnesium Direct Bilirubin AST ALT Alkaline Phosphatase Lactate Dehydrogenase Troponin T C-Reactive Protein Total Protein Albumin Prealbumin Triglycerides Cholesterol LDL Cholesterol Direct HDL Cholesterol 25-OH Vitamin D Total PTH Intact Urine pH Urine WBC (Auto) Urine Creatinine Urine Total Protein Fluid Total Protein Vancomycin Trough Rheumatoid Factor Complement C4 Miscellaneous Test Crossmatch 11/05/16 11/05/16 11/05/16 12:23 13:09 13:25 WBC RBC Hgb Hct MCV MCH MCHC RDW Plt Count Lymph % (Auto) Roberts % (Auto) Lymph # Roberts # Baso # Seg Neutrophils % Seg Neuts % (Manual) Lymphocytes % (Manual) Monocytes % (Manual) Eosinophils % (Manual) Basophils % (Manual) Nucleated RBC % Seg Neutrophils # Seg Neutrophils # Man Lymphocytes # (Manual) Monocytes # (Manual) Eosinophils # (Manual) Basophils # (Manual) PT INR Fibrinogen dRVVT Confirm Interp Factor V Activity POC ABG pH POC ABG pCO2 POC ABG pO2 ABG pO2 ABG HCO3 ABG Base Excess ABG Hemoglobin Oxyhemoglobin Sodium Potassium Chloride Carbon Dioxide BUN Creatinine Glucose POC Glucose 124 H Lactic Acid Calcium Ionized Calcium Phosphorus Magnesium Direct Bilirubin AST ALT Alkaline Phosphatase Lactate Dehydrogenase Troponin T C-Reactive Protein 11.40 H Total Protein Albumin Prealbumin Triglycerides Cholesterol LDL Cholesterol Direct HDL Cholesterol 25-OH Vitamin D Total PTH Intact Urine pH 9.0 H Urine WBC (Auto) Urine Creatinine Urine Total Protein Fluid Total Protein Vancomycin Trough Rheumatoid Factor Complement C4 Miscellaneous Test Crossmatch 11/05/16 11/05/16 11/05/16 13:25 17:54 23:42 WBC RBC Hgb Hct MCV MCH MCHC RDW Plt Count Lymph % (Auto) Roberts % (Auto) Lymph # Roberts # Baso # Seg Neutrophils % Seg Neuts % (Manual) Lymphocytes % (Manual) Monocytes % (Manual) Eosinophils % (Manual) Basophils % (Manual) Nucleated RBC % Seg Neutrophils # Seg Neutrophils # Man Lymphocytes # (Manual) Monocytes # (Manual) Eosinophils # (Manual) Basophils # (Manual) PT INR Fibrinogen dRVVT Confirm Interp Factor V Activity POC ABG pH POC ABG pCO2 POC ABG pO2 ABG pO2 ABG HCO3 ABG Base Excess ABG Hemoglobin Oxyhemoglobin Sodium Potassium Chloride Carbon Dioxide BUN Creatinine Glucose POC Glucose 114 H 134 H Lactic Acid Calcium Ionized Calcium Phosphorus Magnesium Direct Bilirubin AST ALT Alkaline Phosphatase Lactate Dehydrogenase Troponin T C-Reactive Protein Total Protein Albumin Prealbumin Triglycerides Cholesterol LDL Cholesterol Direct HDL Cholesterol 25-OH Vitamin D Total PTH Intact Urine pH Urine WBC (Auto) Urine Creatinine Urine Total Protein Fluid Total Protein Vancomycin Trough Rheumatoid Factor Complement C4 Miscellaneous Test Flexitest 1 H Crossmatch 11/06/16 11/06/16 11/06/16 04:56 06:25 06:25 WBC RBC 2.50 L Hgb 7.3 L Hct 22.5 L MCV MCH MCHC RDW 16.9 H Plt Count Lymph % (Auto) Roberts % (Auto) 10.5 H Lymph # Roberts # 1.1 H Baso # Seg Neutrophils % Seg Neuts % (Manual) Lymphocytes % (Manual) Monocytes % (Manual) Eosinophils % (Manual) Basophils % (Manual) Nucleated RBC % Seg Neutrophils # Seg Neutrophils # Man Lymphocytes # (Manual) Monocytes # (Manual) Eosinophils # (Manual) Basophils # (Manual) PT INR Fibrinogen dRVVT Confirm Interp Factor V Activity POC ABG pH POC ABG pCO2 POC ABG pO2 ABG pO2 ABG HCO3 ABG Base Excess ABG Hemoglobin Oxyhemoglobin Sodium Potassium 5.1 H Chloride 95.9 L Carbon Dioxide BUN 52 H Creatinine 1.8 H Glucose 117 H POC Glucose 120 H Lactic Acid Calcium Ionized Calcium Phosphorus Magnesium Direct Bilirubin AST 103 H ALT 77 H Alkaline Phosphatase 285 H Lactate Dehydrogenase Troponin T C-Reactive Protein Total Protein 6.2 L Albumin 1.8 L Prealbumin 0.180 L Triglycerides Cholesterol LDL Cholesterol Direct HDL Cholesterol 25-OH Vitamin D Total PTH Intact Urine pH Urine WBC (Auto) Urine Creatinine Urine Total Protein Fluid Total Protein Vancomycin Trough Rheumatoid Factor Complement C4 Miscellaneous Test Crossmatch 11/06/16 11/06/16 11/06/16 11:56 17:14 23:52 WBC RBC Hgb Hct MCV MCH MCHC RDW Plt Count Lymph % (Auto) Roberts % (Auto) Lymph # Roberts # Baso # Seg Neutrophils % Seg Neuts % (Manual) Lymphocytes % (Manual) Monocytes % (Manual) Eosinophils % (Manual) Basophils % (Manual) Nucleated RBC % Seg Neutrophils # Seg Neutrophils # Man Lymphocytes # (Manual) Monocytes # (Manual) Eosinophils # (Manual) Basophils # (Manual) PT INR Fibrinogen dRVVT Confirm Interp Factor V Activity POC ABG pH POC ABG pCO2 POC ABG pO2 ABG pO2 ABG HCO3 ABG Base Excess ABG Hemoglobin Oxyhemoglobin Sodium Potassium Chloride Carbon Dioxide BUN Creatinine Glucose POC Glucose 141 H 125 H 130 H Lactic Acid Calcium Ionized Calcium Phosphorus Magnesium Direct Bilirubin AST ALT Alkaline Phosphatase Lactate Dehydrogenase Troponin T C-Reactive Protein Total Protein Albumin Prealbumin Triglycerides Cholesterol LDL Cholesterol Direct HDL Cholesterol 25-OH Vitamin D Total PTH Intact Urine pH Urine WBC (Auto) Urine Creatinine Urine Total Protein Fluid Total Protein Vancomycin Trough Rheumatoid Factor Complement C4 Miscellaneous Test Crossmatch 11/07/16 11/07/16 11/07/16 06:30 06:30 09:37 WBC RBC 2.18 L Hgb 6.3 L Hct 19.7 L* MCV MCH MCHC RDW 16.8 H Plt Count Lymph % (Auto) Roberts % (Auto) 10.0 H Lymph # Roberts # 1.0 H Baso # Seg Neutrophils % Seg Neuts % (Manual) Lymphocytes % (Manual) Monocytes % (Manual) Eosinophils % (Manual) Basophils % (Manual) Nucleated RBC % Seg Neutrophils # Seg Neutrophils # Man Lymphocytes # (Manual) Monocytes # (Manual) Eosinophils # (Manual) Basophils # (Manual) PT INR Fibrinogen dRVVT Confirm Interp Factor V Activity POC ABG pH POC ABG pCO2 POC ABG pO2 ABG pO2 ABG HCO3 ABG Base Excess ABG Hemoglobin Oxyhemoglobin Sodium 135 L Potassium Chloride 95.6 L Carbon Dioxide BUN 70 H Creatinine 2.0 H Glucose 126 H POC Glucose Lactic Acid Calcium Ionized Calcium Phosphorus Magnesium Direct Bilirubin AST ALT Alkaline Phosphatase Lactate Dehydrogenase Troponin T C-Reactive Protein Total Protein Albumin Prealbumin Triglycerides Cholesterol LDL Cholesterol Direct HDL Cholesterol 25-OH Vitamin D Total PTH Intact Urine pH Urine WBC (Auto) Urine Creatinine Urine Total Protein Fluid Total Protein Vancomycin Trough Rheumatoid Factor Complement C4 Miscellaneous Test Crossmatch See Detail 11/07/16 11/07/16 11/07/16 12:52 18:51 21:26 WBC RBC Hgb Hct MCV MCH MCHC RDW Plt Count Lymph % (Auto) Roberts % (Auto) Lymph # Roberts # Baso # Seg Neutrophils % Seg Neuts % (Manual) Lymphocytes % (Manual) Monocytes % (Manual) Eosinophils % (Manual) Basophils % (Manual) Nucleated RBC % Seg Neutrophils # Seg Neutrophils # Man Lymphocytes # (Manual) Monocytes # (Manual) Eosinophils # (Manual) Basophils # (Manual) PT INR Fibrinogen dRVVT Confirm Interp Factor V Activity POC ABG pH 7.523 H POC ABG pCO2 34.6 L POC ABG pO2 53 L ABG pO2 ABG HCO3 ABG Base Excess ABG Hemoglobin Oxyhemoglobin Sodium Potassium Chloride Carbon Dioxide BUN Creatinine Glucose POC Glucose 142 H 155 H Lactic Acid Calcium Ionized Calcium Phosphorus Magnesium Direct Bilirubin AST ALT Alkaline Phosphatase Lactate Dehydrogenase Troponin T C-Reactive Protein Total Protein Albumin Prealbumin Triglycerides Cholesterol LDL Cholesterol Direct HDL Cholesterol 25-OH Vitamin D Total PTH Intact Urine pH Urine WBC (Auto) Urine Creatinine Urine Total Protein Fluid Total Protein Vancomycin Trough Rheumatoid Factor Complement C4 Miscellaneous Test Crossmatch 11/07/16 11/08/16 11/08/16 21:34 13:03 23:37 WBC RBC 2.63 L Hgb 7.7 L Hct 22.7 L MCV MCH MCHC RDW 17.0 H Plt Count Lymph % (Auto) Roberts % (Auto) Lymph # Roberts # Baso # Seg Neutrophils % Seg Neuts % (Manual) Lymphocytes % (Manual) Monocytes % (Manual) Eosinophils % (Manual) Basophils % (Manual) Nucleated RBC % Seg Neutrophils # Seg Neutrophils # Man Lymphocytes # (Manual) Monocytes # (Manual) Eosinophils # (Manual) Basophils # (Manual) PT INR Fibrinogen dRVVT Confirm Interp Factor V Activity POC ABG pH 7.478 H POC ABG pCO2 34.0 L POC ABG pO2 50 L ABG pO2 ABG HCO3 ABG Base Excess ABG Hemoglobin Oxyhemoglobin Sodium Potassium Chloride Carbon Dioxide BUN Creatinine Glucose POC Glucose 113 H Lactic Acid Calcium Ionized Calcium Phosphorus Magnesium Direct Bilirubin AST ALT Alkaline Phosphatase Lactate Dehydrogenase Troponin T C-Reactive Protein Total Protein Albumin Prealbumin Triglycerides Cholesterol LDL Cholesterol Direct HDL Cholesterol 25-OH Vitamin D Total PTH Intact Urine pH Urine WBC (Auto) Urine Creatinine Urine Total Protein Fluid Total Protein Vancomycin Trough Rheumatoid Factor Complement C4 Miscellaneous Test Crossmatch 11/09/16 11/09/16 11/09/16 04:35 10:15 18:21 WBC RBC 2.68 L Hgb 7.8 L Hct 23.3 L MCV MCH MCHC RDW 17.0 H Plt Count Lymph % (Auto) Roberts % (Auto) 12.1 H Lymph # Roberts # 1.1 H Baso # Seg Neutrophils % Seg Neuts % (Manual) Lymphocytes % (Manual) Monocytes % (Manual) Eosinophils % (Manual) Basophils % (Manual) Nucleated RBC % Seg Neutrophils # Seg Neutrophils # Man Lymphocytes # (Manual) Monocytes # (Manual) Eosinophils # (Manual) Basophils # (Manual) PT INR Fibrinogen dRVVT Confirm Interp Factor V Activity POC ABG pH POC ABG pCO2 POC ABG pO2 ABG pO2 ABG HCO3 ABG Base Excess ABG Hemoglobin Oxyhemoglobin Sodium Potassium Chloride Carbon Dioxide BUN 51 H Creatinine 1.8 H Glucose POC Glucose 60 L Lactic Acid Calcium 8.3 L Ionized Calcium Phosphorus Magnesium Direct Bilirubin AST ALT Alkaline Phosphatase Lactate Dehydrogenase Troponin T C-Reactive Protein Total Protein Albumin Prealbumin Triglycerides Cholesterol LDL Cholesterol Direct HDL Cholesterol 25-OH Vitamin D Total PTH Intact Urine pH Urine WBC (Auto) Urine Creatinine Urine Total Protein Fluid Total Protein Vancomycin Trough Rheumatoid Factor Complement C4 Miscellaneous Test Crossmatch 11/09/16 11/10/16 11/10/16 18:55 07:00 11:51 WBC RBC Hgb Hct MCV MCH MCHC RDW Plt Count Lymph % (Auto) Roberts % (Auto) Lymph # Roberts # Baso # Seg Neutrophils % Seg Neuts % (Manual) Lymphocytes % (Manual) Monocytes % (Manual) Eosinophils % (Manual) Basophils % (Manual) Nucleated RBC % Seg Neutrophils # Seg Neutrophils # Man Lymphocytes # (Manual) Monocytes # (Manual) Eosinophils # (Manual) Basophils # (Manual) PT INR Fibrinogen dRVVT Confirm Interp Factor V Activity POC ABG pH POC ABG pCO2 POC ABG pO2 ABG pO2 ABG HCO3 ABG Base Excess ABG Hemoglobin Oxyhemoglobin Sodium Potassium 3.0 L D Chloride 97.4 L Carbon Dioxide BUN 28 H Creatinine 1.3 H Glucose POC Glucose 68 L 120 H Lactic Acid Calcium 7.8 L Ionized Calcium Phosphorus Magnesium Direct Bilirubin AST ALT Alkaline Phosphatase Lactate Dehydrogenase Troponin T C-Reactive Protein Total Protein Albumin Prealbumin Triglycerides Cholesterol LDL Cholesterol Direct HDL Cholesterol 25-OH Vitamin D Total PTH Intact Urine pH Urine WBC (Auto) Urine Creatinine Urine Total Protein Fluid Total Protein Vancomycin Trough Rheumatoid Factor Complement C4 Miscellaneous Test Crossmatch 11/10/16 11/11/16 11/11/16 14:20 06:59 06:59 WBC RBC 2.81 L Hgb 8.1 L Hct 24.4 L MCV MCH MCHC RDW 16.4 H Plt Count Lymph % (Auto) Roberts % (Auto) 10.8 H Lymph # Roberts # 1.0 H Baso # Seg Neutrophils % Seg Neuts % (Manual) Lymphocytes % (Manual) Monocytes % (Manual) Eosinophils % (Manual) Basophils % (Manual) Nucleated RBC % Seg Neutrophils # Seg Neutrophils # Man Lymphocytes # (Manual) Monocytes # (Manual) Eosinophils # (Manual) Basophils # (Manual) PT INR Fibrinogen dRVVT Confirm Interp Factor V Activity POC ABG pH POC ABG pCO2 POC ABG pO2 ABG pO2 ABG HCO3 ABG Base Excess ABG Hemoglobin Oxyhemoglobin Sodium Potassium Chloride Carbon Dioxide BUN Creatinine Glucose POC Glucose Lactic Acid Calcium Ionized Calcium Phosphorus Magnesium Direct Bilirubin AST ALT Alkaline Phosphatase Lactate Dehydrogenase 196 H Troponin T C-Reactive Protein Total Protein 6.1 L Albumin Prealbumin Triglycerides Cholesterol LDL Cholesterol Direct HDL Cholesterol 25-OH Vitamin D Total PTH Intact Urine pH Urine WBC (Auto) Urine Creatinine Urine Total Protein Fluid Total Protein < 3.0 L Vancomycin Trough Rheumatoid Factor Complement C4 Miscellaneous Test Crossmatch 11/11/16 11/11/16 11/12/16 06:59 09:50 04:00 WBC RBC Hgb Hct MCV MCH MCHC RDW Plt Count Lymph % (Auto) Roberts % (Auto) Lymph # Roberts # Baso # Seg Neutrophils % Seg Neuts % (Manual) Lymphocytes % (Manual) Monocytes % (Manual) Eosinophils % (Manual) Basophils % (Manual) Nucleated RBC % Seg Neutrophils # Seg Neutrophils # Man Lymphocytes # (Manual) Monocytes # (Manual) Eosinophils # (Manual) Basophils # (Manual) PT INR 1.18 H Fibrinogen dRVVT Confirm Interp Factor V Activity POC ABG pH POC ABG pCO2 POC ABG pO2 ABG pO2 ABG HCO3 ABG Base Excess ABG Hemoglobin Oxyhemoglobin Sodium 136 L 133 L Potassium Chloride 96.1 L 94.8 L Carbon Dioxide 21 L BUN 37 H 42 H Creatinine 1.8 H 2.0 H Glucose POC Glucose Lactic Acid Calcium Ionized Calcium Phosphorus Magnesium Direct Bilirubin AST ALT Alkaline Phosphatase Lactate Dehydrogenase Troponin T C-Reactive Protein Total Protein Albumin Prealbumin Triglycerides Cholesterol LDL Cholesterol Direct HDL Cholesterol 25-OH Vitamin D Total PTH Intact Urine pH Urine WBC (Auto) Urine Creatinine Urine Total Protein Fluid Total Protein Vancomycin Trough Rheumatoid Factor Complement C4 Miscellaneous Test Crossmatch 11/12/16 11/12/16 11/13/16 04:00 23:55 05:53 WBC RBC Hgb 8.9 L Hct 27.2 L MCV MCH MCHC RDW Plt Count Lymph % (Auto) Roberts % (Auto) Lymph # Roberts # Baso # Seg Neutrophils % Seg Neuts % (Manual) Lymphocytes % (Manual) Monocytes % (Manual) Eosinophils % (Manual) Basophils % (Manual) Nucleated RBC % Seg Neutrophils # Seg Neutrophils # Man Lymphocytes # (Manual) Monocytes # (Manual) Eosinophils # (Manual) Basophils # (Manual) PT INR Fibrinogen dRVVT Confirm Interp Factor V Activity POC ABG pH POC ABG pCO2 POC ABG pO2 ABG pO2 ABG HCO3 ABG Base Excess ABG Hemoglobin Oxyhemoglobin Sodium Potassium Chloride Carbon Dioxide BUN Creatinine Glucose POC Glucose 132 H 120 H Lactic Acid Calcium Ionized Calcium Phosphorus Magnesium Direct Bilirubin AST ALT Alkaline Phosphatase Lactate Dehydrogenase Troponin T C-Reactive Protein Total Protein Albumin Prealbumin Triglycerides Cholesterol LDL Cholesterol Direct HDL Cholesterol 25-OH Vitamin D Total PTH Intact Urine pH Urine WBC (Auto) Urine Creatinine Urine Total Protein Fluid Total Protein Vancomycin Trough Rheumatoid Factor Complement C4 Miscellaneous Test Crossmatch 11/13/16 11/13/16 11/13/16 11:43 17:09 23:41 WBC RBC Hgb Hct MCV MCH MCHC RDW Plt Count Lymph % (Auto) Roberts % (Auto) Lymph # Roberts # Baso # Seg Neutrophils % Seg Neuts % (Manual) Lymphocytes % (Manual) Monocytes % (Manual) Eosinophils % (Manual) Basophils % (Manual) Nucleated RBC % Seg Neutrophils # Seg Neutrophils # Man Lymphocytes # (Manual) Monocytes # (Manual) Eosinophils # (Manual) Basophils # (Manual) PT INR Fibrinogen dRVVT Confirm Interp Factor V Activity POC ABG pH POC ABG pCO2 POC ABG pO2 ABG pO2 ABG HCO3 ABG Base Excess ABG Hemoglobin Oxyhemoglobin Sodium Potassium Chloride Carbon Dioxide BUN Creatinine Glucose POC Glucose 114 H 113 H 108 H Lactic Acid Calcium Ionized Calcium Phosphorus Magnesium Direct Bilirubin AST ALT Alkaline Phosphatase Lactate Dehydrogenase Troponin T C-Reactive Protein Total Protein Albumin Prealbumin Triglycerides Cholesterol LDL Cholesterol Direct HDL Cholesterol 25-OH Vitamin D Total PTH Intact Urine pH Urine WBC (Auto) Urine Creatinine Urine Total Protein Fluid Total Protein Vancomycin Trough Rheumatoid Factor Complement C4 Miscellaneous Test Crossmatch 11/13/16 11/15/16 11/15/16 Unknown 00:37 03:30 WBC 11.2 H RBC 2.72 L Hgb 7.6 L Hct 23.4 L MCV MCH MCHC RDW 16.5 H Plt Count Lymph % (Auto) Roberts % (Auto) Lymph # Roberts # Baso # Seg Neutrophils % Seg Neuts % (Manual) Lymphocytes % (Manual) Monocytes % (Manual) Eosinophils % (Manual) Basophils % (Manual) Nucleated RBC % Seg Neutrophils # Seg Neutrophils # Man Lymphocytes # (Manual) Monocytes # (Manual) Eosinophils # (Manual) Basophils # (Manual) PT INR Fibrinogen dRVVT Confirm Interp Factor V Activity POC ABG pH POC ABG pCO2 POC ABG pO2 ABG pO2 ABG HCO3 ABG Base Excess ABG Hemoglobin Oxyhemoglobin Sodium 135 L Potassium Chloride 95.2 L Carbon Dioxide BUN 52 H Creatinine 2.2 H Glucose POC Glucose 108 H Lactic Acid Calcium Ionized Calcium Phosphorus Magnesium Direct Bilirubin AST ALT Alkaline Phosphatase Lactate Dehydrogenase Troponin T C-Reactive Protein Total Protein Albumin Prealbumin Triglycerides Cholesterol LDL Cholesterol Direct HDL Cholesterol 25-OH Vitamin D Total PTH Intact Urine pH Urine WBC (Auto) Urine Creatinine Urine Total Protein Fluid Total Protein Vancomycin Trough Rheumatoid Factor Complement C4 Miscellaneous Test Crossmatch 11/15/16 11/15/16 11/15/16 03:30 05:04 11:50 WBC RBC Hgb Hct MCV MCH MCHC RDW Plt Count Lymph % (Auto) Roberts % (Auto) Lymph # Roberts # Baso # Seg Neutrophils % Seg Neuts % (Manual) Lymphocytes % (Manual) Monocytes % (Manual) Eosinophils % (Manual) Basophils % (Manual) Nucleated RBC % Seg Neutrophils # Seg Neutrophils # Man Lymphocytes # (Manual) Monocytes # (Manual) Eosinophils # (Manual) Basophils # (Manual) PT INR Fibrinogen dRVVT Confirm Interp Factor V Activity POC ABG pH POC ABG pCO2 POC ABG pO2 ABG pO2 ABG HCO3 ABG Base Excess ABG Hemoglobin Oxyhemoglobin Sodium Potassium 3.4 L Chloride Carbon Dioxide BUN 25 H Creatinine 1.5 H Glucose 103 H POC Glucose 121 H 144 H Lactic Acid Calcium Ionized Calcium Phosphorus Magnesium Direct Bilirubin AST ALT Alkaline Phosphatase Lactate Dehydrogenase Troponin T C-Reactive Protein Total Protein Albumin Prealbumin Triglycerides Cholesterol LDL Cholesterol Direct HDL Cholesterol 25-OH Vitamin D Total PTH Intact Urine pH Urine WBC (Auto) Urine Creatinine Urine Total Protein Fluid Total Protein Vancomycin Trough Rheumatoid Factor Complement C4 Miscellaneous Test Crossmatch 11/15/16 11/15/16 11/16/16 21:28 23:20 11:44 WBC RBC Hgb Hct MCV MCH MCHC RDW Plt Count Lymph % (Auto) Roberts % (Auto) Lymph # Roberts # Baso # Seg Neutrophils % Seg Neuts % (Manual) Lymphocytes % (Manual) Monocytes % (Manual) Eosinophils % (Manual) Basophils % (Manual) Nucleated RBC % Seg Neutrophils # Seg Neutrophils # Man Lymphocytes # (Manual) Monocytes # (Manual) Eosinophils # (Manual) Basophils # (Manual) PT INR Fibrinogen dRVVT Confirm Interp Factor V Activity POC ABG pH 7.462 H POC ABG pCO2 POC ABG pO2 71 L ABG pO2 ABG HCO3 ABG Base Excess ABG Hemoglobin Oxyhemoglobin Sodium Potassium Chloride Carbon Dioxide BUN Creatinine Glucose POC Glucose 116 H 133 H Lactic Acid Calcium Ionized Calcium Phosphorus Magnesium Direct Bilirubin AST ALT Alkaline Phosphatase Lactate Dehydrogenase Troponin T C-Reactive Protein Total Protein Albumin Prealbumin Triglycerides Cholesterol LDL Cholesterol Direct HDL Cholesterol 25-OH Vitamin D Total PTH Intact Urine pH Urine WBC (Auto) Urine Creatinine Urine Total Protein Fluid Total Protein Vancomycin Trough Rheumatoid Factor Complement C4 Miscellaneous Test Crossmatch 11/16/16 11/16/16 11/16/16 12:20 17:05 23:35 WBC 11.7 H RBC 2.73 L Hgb 7.6 L Hct 23.7 L MCV MCH MCHC RDW 16.6 H Plt Count Lymph % (Auto) Roberts % (Auto) Lymph # Roberts # Baso # Seg Neutrophils % Seg Neuts % (Manual) Lymphocytes % (Manual) Monocytes % (Manual) Eosinophils % (Manual) Basophils % (Manual) Nucleated RBC % Seg Neutrophils # Seg Neutrophils # Man Lymphocytes # (Manual) Monocytes # (Manual) Eosinophils # (Manual) Basophils # (Manual) PT INR Fibrinogen dRVVT Confirm Interp Factor V Activity POC ABG pH POC ABG pCO2 POC ABG pO2 ABG pO2 ABG HCO3 ABG Base Excess ABG Hemoglobin Oxyhemoglobin Sodium Potassium Chloride Carbon Dioxide BUN Creatinine Glucose POC Glucose 154 H 125 H Lactic Acid Calcium Ionized Calcium Phosphorus Magnesium Direct Bilirubin AST ALT Alkaline Phosphatase Lactate Dehydrogenase Troponin T C-Reactive Protein Total Protein Albumin Prealbumin Triglycerides Cholesterol LDL Cholesterol Direct HDL Cholesterol 25-OH Vitamin D Total PTH Intact Urine pH Urine WBC (Auto) Urine Creatinine Urine Total Protein Fluid Total Protein Vancomycin Trough Rheumatoid Factor Complement C4 Miscellaneous Test Crossmatch 11/17/16 11/17/16 11/17/16 03:20 03:20 03:20 WBC RBC 2.55 L Hgb 7.3 L Hct 21.9 L MCV MCH MCHC RDW 16.6 H Plt Count Lymph % (Auto) Roberts % (Auto) 11.5 H Lymph # Roberts # 1.1 H Baso # Seg Neutrophils % Seg Neuts % (Manual) Lymphocytes % (Manual) Monocytes % (Manual) Eosinophils % (Manual) Basophils % (Manual) Nucleated RBC % Seg Neutrophils # Seg Neutrophils # Man Lymphocytes # (Manual) Monocytes # (Manual) Eosinophils # (Manual) Basophils # (Manual) PT 16.8 H INR 1.37 H Fibrinogen dRVVT Confirm Interp Factor V Activity POC ABG pH POC ABG pCO2 POC ABG pO2 ABG pO2 ABG HCO3 ABG Base Excess ABG Hemoglobin Oxyhemoglobin Sodium Potassium 3.5 L Chloride Carbon Dioxide BUN 21 H Creatinine Glucose POC Glucose Lactic Acid Calcium 7.9 L Ionized Calcium Phosphorus Magnesium Direct Bilirubin AST ALT Alkaline Phosphatase Lactate Dehydrogenase Troponin T C-Reactive Protein Total Protein Albumin Prealbumin Triglycerides Cholesterol LDL Cholesterol Direct HDL Cholesterol 25-OH Vitamin D Total PTH Intact Urine pH Urine WBC (Auto) Urine Creatinine Urine Total Protein Fluid Total Protein Vancomycin Trough Rheumatoid Factor Complement C4 Miscellaneous Test Crossmatch 11/17/16 11/17/16 11/17/16 06:34 11:21 21:22 WBC RBC Hgb Hct MCV MCH MCHC RDW Plt Count Lymph % (Auto) Roberts % (Auto) Lymph # Roberts # Baso # Seg Neutrophils % Seg Neuts % (Manual) Lymphocytes % (Manual) Monocytes % (Manual) Eosinophils % (Manual) Basophils % (Manual) Nucleated RBC % Seg Neutrophils # Seg Neutrophils # Man Lymphocytes # (Manual) Monocytes # (Manual) Eosinophils # (Manual) Basophils # (Manual) PT INR Fibrinogen dRVVT Confirm Interp Factor V Activity POC ABG pH 7.467 H POC ABG pCO2 POC ABG pO2 73 L ABG pO2 ABG HCO3 ABG Base Excess ABG Hemoglobin Oxyhemoglobin Sodium Potassium Chloride Carbon Dioxide BUN Creatinine Glucose POC Glucose 121 H 119 H Lactic Acid Calcium Ionized Calcium Phosphorus Magnesium Direct Bilirubin AST ALT Alkaline Phosphatase Lactate Dehydrogenase Troponin T C-Reactive Protein Total Protein Albumin Prealbumin Triglycerides Cholesterol LDL Cholesterol Direct HDL Cholesterol 25-OH Vitamin D Total PTH Intact Urine pH Urine WBC (Auto) Urine Creatinine Urine Total Protein Fluid Total Protein Vancomycin Trough Rheumatoid Factor Complement C4 Miscellaneous Test Crossmatch 11/18/16 11/18/16 11/19/16 12:16 17:19 00:00 WBC RBC Hgb Hct MCV MCH MCHC RDW Plt Count Lymph % (Auto) Roberts % (Auto) Lymph # Roberts # Baso # Seg Neutrophils % Seg Neuts % (Manual) Lymphocytes % (Manual) Monocytes % (Manual) Eosinophils % (Manual) Basophils % (Manual) Nucleated RBC % Seg Neutrophils # Seg Neutrophils # Man Lymphocytes # (Manual) Monocytes # (Manual) Eosinophils # (Manual) Basophils # (Manual) PT INR Fibrinogen dRVVT Confirm Interp Factor V Activity POC ABG pH POC ABG pCO2 POC ABG pO2 ABG pO2 ABG HCO3 ABG Base Excess ABG Hemoglobin Oxyhemoglobin Sodium Potassium Chloride Carbon Dioxide BUN Creatinine Glucose POC Glucose 124 H 162 H 139 H Lactic Acid Calcium Ionized Calcium Phosphorus Magnesium Direct Bilirubin AST ALT Alkaline Phosphatase Lactate Dehydrogenase Troponin T C-Reactive Protein Total Protein Albumin Prealbumin Triglycerides Cholesterol LDL Cholesterol Direct HDL Cholesterol 25-OH Vitamin D Total PTH Intact Urine pH Urine WBC (Auto) Urine Creatinine Urine Total Protein Fluid Total Protein Vancomycin Trough Rheumatoid Factor Complement C4 Miscellaneous Test Crossmatch 11/19/16 11/19/16 11/20/16 05:00 12:43 00:40 WBC RBC Hgb Hct MCV MCH MCHC RDW Plt Count Lymph % (Auto) Roberts % (Auto) Lymph # Roberts # Baso # Seg Neutrophils % Seg Neuts % (Manual) Lymphocytes % (Manual) Monocytes % (Manual) Eosinophils % (Manual) Basophils % (Manual) Nucleated RBC % Seg Neutrophils # Seg Neutrophils # Man Lymphocytes # (Manual) Monocytes # (Manual) Eosinophils # (Manual) Basophils # (Manual) PT INR Fibrinogen dRVVT Confirm Interp Factor V Activity POC ABG pH POC ABG pCO2 POC ABG pO2 ABG pO2 ABG HCO3 ABG Base Excess ABG Hemoglobin Oxyhemoglobin Sodium Potassium Chloride Carbon Dioxide BUN Creatinine Glucose POC Glucose 110 H 125 H 136 H Lactic Acid Calcium Ionized Calcium Phosphorus Magnesium Direct Bilirubin AST ALT Alkaline Phosphatase Lactate Dehydrogenase Troponin T C-Reactive Protein Total Protein Albumin Prealbumin Triglycerides Cholesterol LDL Cholesterol Direct HDL Cholesterol 25-OH Vitamin D Total PTH Intact Urine pH Urine WBC (Auto) Urine Creatinine Urine Total Protein Fluid Total Protein Vancomycin Trough Rheumatoid Factor Complement C4 Miscellaneous Test Crossmatch 11/20/16 11/20/16 11/20/16 05:00 05:00 05:51 WBC 13.1 H RBC 2.74 L Hgb 7.7 L Hct 23.6 L MCV MCH MCHC RDW 16.9 H Plt Count Lymph % (Auto) Roberts % (Auto) 10.8 H Lymph # Roberts # 1.4 H Baso # Seg Neutrophils % Seg Neuts % (Manual) Lymphocytes % (Manual) Monocytes % (Manual) Eosinophils % (Manual) Basophils % (Manual) Nucleated RBC % Seg Neutrophils # 7.9 H Seg Neutrophils # Man Lymphocytes # (Manual) Monocytes # (Manual) Eosinophils # (Manual) Basophils # (Manual) PT INR Fibrinogen dRVVT Confirm Interp Factor V Activity POC ABG pH POC ABG pCO2 POC ABG pO2 ABG pO2 ABG HCO3 ABG Base Excess ABG Hemoglobin Oxyhemoglobin Sodium Potassium Chloride Carbon Dioxide BUN 31 H Creatinine 1.8 H Glucose 129 H POC Glucose 133 H Lactic Acid Calcium Ionized Calcium Phosphorus Magnesium Direct Bilirubin AST ALT Alkaline Phosphatase Lactate Dehydrogenase Troponin T C-Reactive Protein Total Protein Albumin Prealbumin Triglycerides Cholesterol LDL Cholesterol Direct HDL Cholesterol 25-OH Vitamin D Total PTH Intact Urine pH Urine WBC (Auto) Urine Creatinine Urine Total Protein Fluid Total Protein Vancomycin Trough Rheumatoid Factor Complement C4 Miscellaneous Test Crossmatch 11/20/16 11/20/16 11/21/16 12:40 18:10 01:20 WBC RBC Hgb Hct MCV MCH MCHC RDW Plt Count Lymph % (Auto) Roberts % (Auto) Lymph # Roberts # Baso # Seg Neutrophils % Seg Neuts % (Manual) Lymphocytes % (Manual) Monocytes % (Manual) Eosinophils % (Manual) Basophils % (Manual) Nucleated RBC % Seg Neutrophils # Seg Neutrophils # Man Lymphocytes # (Manual) Monocytes # (Manual) Eosinophils # (Manual) Basophils # (Manual) PT INR Fibrinogen dRVVT Confirm Interp Factor V Activity POC ABG pH POC ABG pCO2 POC ABG pO2 ABG pO2 ABG HCO3 ABG Base Excess ABG Hemoglobin Oxyhemoglobin Sodium Potassium Chloride Carbon Dioxide BUN Creatinine Glucose POC Glucose 134 H 138 H 136 H Lactic Acid Calcium Ionized Calcium Phosphorus Magnesium Direct Bilirubin AST ALT Alkaline Phosphatase Lactate Dehydrogenase Troponin T C-Reactive Protein Total Protein Albumin Prealbumin Triglycerides Cholesterol LDL Cholesterol Direct HDL Cholesterol 25-OH Vitamin D Total PTH Intact Urine pH Urine WBC (Auto) Urine Creatinine Urine Total Protein Fluid Total Protein Vancomycin Trough Rheumatoid Factor Complement C4 Miscellaneous Test Crossmatch 11/21/16 11/21/16 11/21/16 07:04 07:45 07:45 WBC 22.0 H RBC 2.91 L Hgb 8.2 L Hct 25.4 L MCV MCH MCHC RDW 17.1 H Plt Count Lymph % (Auto) Roberts % (Auto) Lymph # Roberts # Baso # Seg Neutrophils % Seg Neuts % (Manual) Lymphocytes % (Manual) 8.0 L Monocytes % (Manual) Eosinophils % (Manual) Basophils % (Manual) Nucleated RBC % Seg Neutrophils # Seg Neutrophils # Man 14.7 H Lymphocytes # (Manual) Monocytes # (Manual) 1.1 H Eosinophils # (Manual) Basophils # (Manual) PT INR Fibrinogen dRVVT Confirm Interp Factor V Activity POC ABG pH POC ABG pCO2 POC ABG pO2 ABG pO2 ABG HCO3 ABG Base Excess ABG Hemoglobin Oxyhemoglobin Sodium Potassium Chloride Carbon Dioxide BUN 42 H Creatinine 2.0 H Glucose POC Glucose 108 H Lactic Acid Calcium Ionized Calcium Phosphorus Magnesium Direct Bilirubin AST ALT Alkaline Phosphatase Lactate Dehydrogenase Troponin T C-Reactive Protein Total Protein Albumin Prealbumin Triglycerides Cholesterol LDL Cholesterol Direct HDL Cholesterol 25-OH Vitamin D Total PTH Intact Urine pH Urine WBC (Auto) Urine Creatinine Urine Total Protein Fluid Total Protein Vancomycin Trough Rheumatoid Factor Complement C4 Miscellaneous Test Crossmatch 11/21/16 11/21/16 11/21/16 08:38 10:09 11:20 WBC RBC Hgb Hct MCV MCH MCHC RDW Plt Count Lymph % (Auto) Roberts % (Auto) Lymph # Roberts # Baso # Seg Neutrophils % Seg Neuts % (Manual) Lymphocytes % (Manual) Monocytes % (Manual) Eosinophils % (Manual) Basophils % (Manual) Nucleated RBC % Seg Neutrophils # Seg Neutrophils # Man Lymphocytes # (Manual) Monocytes # (Manual) Eosinophils # (Manual) Basophils # (Manual) PT INR Fibrinogen dRVVT Confirm Interp Factor V Activity POC ABG pH 7.346 L POC ABG pCO2 34.4 L POC ABG pO2 314 H ABG pO2 ABG HCO3 ABG Base Excess ABG Hemoglobin Oxyhemoglobin Sodium Potassium Chloride Carbon Dioxide BUN Creatinine Glucose POC Glucose 195 H 153 H Lactic Acid Calcium Ionized Calcium Phosphorus Magnesium Direct Bilirubin AST ALT Alkaline Phosphatase Lactate Dehydrogenase Troponin T C-Reactive Protein Total Protein Albumin Prealbumin Triglycerides Cholesterol LDL Cholesterol Direct HDL Cholesterol 25-OH Vitamin D Total PTH Intact Urine pH Urine WBC (Auto) Urine Creatinine Urine Total Protein Fluid Total Protein Vancomycin Trough Rheumatoid Factor Complement C4 Miscellaneous Test Crossmatch 11/21/16 11/22/16 11/22/16 23:37 04:48 05:00 WBC 29.7 H RBC 2.73 L Hgb 7.5 L Hct 24.2 L MCV MCH 27 L MCHC RDW 17.4 H Plt Count Lymph % (Auto) Roberts % (Auto) Lymph # Roberts # Baso # Seg Neutrophils % Seg Neuts % (Manual) Lymphocytes % (Manual) 7.0 L Monocytes % (Manual) Eosinophils % (Manual) Basophils % (Manual) Nucleated RBC % Seg Neutrophils # Seg Neutrophils # Man 15.4 H Lymphocytes # (Manual) Monocytes # (Manual) Eosinophils # (Manual) Basophils # (Manual) PT INR Fibrinogen dRVVT Confirm Interp Factor V Activity POC ABG pH POC ABG pCO2 24.6 L POC ABG pO2 189 H ABG pO2 ABG HCO3 ABG Base Excess ABG Hemoglobin Oxyhemoglobin Sodium Potassium Chloride Carbon Dioxide BUN Creatinine Glucose POC Glucose 65 L Lactic Acid Calcium Ionized Calcium Phosphorus Magnesium Direct Bilirubin AST ALT Alkaline Phosphatase Lactate Dehydrogenase Troponin T C-Reactive Protein Total Protein Albumin Prealbumin Triglycerides Cholesterol LDL Cholesterol Direct HDL Cholesterol 25-OH Vitamin D Total PTH Intact Urine pH Urine WBC (Auto) Urine Creatinine Urine Total Protein Fluid Total Protein Vancomycin Trough Rheumatoid Factor Complement C4 Miscellaneous Test Crossmatch 11/22/16 11/23/16 11/23/16 05:00 03:44 04:06 WBC RBC 2.52 L Hgb 7.2 L Hct 21.5 L MCV MCH MCHC RDW 17.1 H Plt Count Lymph % (Auto) Roberts % (Auto) 12.4 H Lymph # Roberts # 1.4 H Baso # Seg Neutrophils % Seg Neuts % (Manual) Lymphocytes % (Manual) Monocytes % (Manual) Eosinophils % (Manual) Basophils % (Manual) Nucleated RBC % Seg Neutrophils # Seg Neutrophils # Man Lymphocytes # (Manual) Monocytes # (Manual) Eosinophils # (Manual) Basophils # (Manual) PT INR Fibrinogen dRVVT Confirm Interp Factor V Activity POC ABG pH 7.493 H POC ABG pCO2 29.5 L POC ABG pO2 49 L ABG pO2 ABG HCO3 ABG Base Excess ABG Hemoglobin Oxyhemoglobin Sodium 134 L Potassium Chloride 95.9 L Carbon Dioxide 14 L D BUN 51 H Creatinine 2.6 H Glucose POC Glucose Lactic Acid Calcium Ionized Calcium Phosphorus Magnesium Direct Bilirubin AST ALT Alkaline Phosphatase Lactate Dehydrogenase Troponin T C-Reactive Protein Total Protein Albumin Prealbumin Triglycerides Cholesterol LDL Cholesterol Direct HDL Cholesterol 25-OH Vitamin D Total PTH Intact Urine pH Urine WBC (Auto) Urine Creatinine Urine Total Protein Fluid Total Protein Vancomycin Trough Rheumatoid Factor Complement C4 Miscellaneous Test Crossmatch 11/23/16 11/23/16 11/24/16 04:06 11:29 06:39 WBC RBC Hgb Hct MCV MCH MCHC RDW Plt Count Lymph % (Auto) Roberts % (Auto) Lymph # Roberts # Baso # Seg Neutrophils % Seg Neuts % (Manual) Lymphocytes % (Manual) Monocytes % (Manual) Eosinophils % (Manual) Basophils % (Manual) Nucleated RBC % Seg Neutrophils # Seg Neutrophils # Man Lymphocytes # (Manual) Monocytes # (Manual) Eosinophils # (Manual) Basophils # (Manual) PT INR Fibrinogen dRVVT Confirm Interp Factor V Activity POC ABG pH POC ABG pCO2 POC ABG pO2 ABG pO2 ABG HCO3 ABG Base Excess ABG Hemoglobin Oxyhemoglobin Sodium 136 L Potassium Chloride 95.2 L Carbon Dioxide BUN 60 H Creatinine 2.9 H Glucose POC Glucose 69 L 305 H Lactic Acid Calcium Ionized Calcium Phosphorus Magnesium 1.60 L Direct Bilirubin AST ALT Alkaline Phosphatase Lactate Dehydrogenase Troponin T C-Reactive Protein Total Protein Albumin Prealbumin Triglycerides Cholesterol LDL Cholesterol Direct HDL Cholesterol 25-OH Vitamin D Total PTH Intact Urine pH Urine WBC (Auto) Urine Creatinine Urine Total Protein Fluid Total Protein Vancomycin Trough Rheumatoid Factor Complement C4 Miscellaneous Test Crossmatch 11/24/16 11/24/16 11/24/16 06:43 08:08 08:08 WBC 11.2 H RBC 2.47 L Hgb 6.8 L Hct 20.6 L MCV MCH MCHC RDW 17.0 H Plt Count Lymph % (Auto) Roberts % (Auto) 10.3 H Lymph # Roberts # 1.2 H Baso # Seg Neutrophils % Seg Neuts % (Manual) Lymphocytes % (Manual) Monocytes % (Manual) Eosinophils % (Manual) Basophils % (Manual) Nucleated RBC % Seg Neutrophils # Seg Neutrophils # Man Lymphocytes # (Manual) Monocytes # (Manual) Eosinophils # (Manual) Basophils # (Manual) PT INR Fibrinogen dRVVT Confirm Interp Factor V Activity POC ABG pH POC ABG pCO2 POC ABG pO2 ABG pO2 ABG HCO3 ABG Base Excess ABG Hemoglobin Oxyhemoglobin Sodium 135 L Potassium Chloride 96.3 L Carbon Dioxide BUN 61 H Creatinine 3.1 H Glucose POC Glucose 62 L Lactic Acid Calcium 8.2 L Ionized Calcium Phosphorus Magnesium Direct Bilirubin AST ALT Alkaline Phosphatase Lactate Dehydrogenase Troponin T C-Reactive Protein Total Protein Albumin Prealbumin Triglycerides Cholesterol LDL Cholesterol Direct HDL Cholesterol 25-OH Vitamin D Total PTH Intact Urine pH Urine WBC (Auto) Urine Creatinine Urine Total Protein Fluid Total Protein Vancomycin Trough Rheumatoid Factor Complement C4 Miscellaneous Test Crossmatch 11/24/16 11/24/16 11/24/16 08:34 11:20 12:41 WBC RBC Hgb Hct MCV MCH MCHC RDW Plt Count Lymph % (Auto) Roberts % (Auto) Lymph # Roberts # Baso # Seg Neutrophils % Seg Neuts % (Manual) Lymphocytes % (Manual) Monocytes % (Manual) Eosinophils % (Manual) Basophils % (Manual) Nucleated RBC % Seg Neutrophils # Seg Neutrophils # Man Lymphocytes # (Manual) Monocytes # (Manual) Eosinophils # (Manual) Basophils # (Manual) PT INR Fibrinogen dRVVT Confirm Interp Factor V Activity POC ABG pH POC ABG pCO2 POC ABG pO2 ABG pO2 ABG HCO3 ABG Base Excess ABG Hemoglobin Oxyhemoglobin Sodium Potassium Chloride Carbon Dioxide BUN Creatinine Glucose POC Glucose 108 H Lactic Acid Calcium Ionized Calcium Phosphorus Magnesium 1.60 L Direct Bilirubin AST ALT Alkaline Phosphatase Lactate Dehydrogenase Troponin T C-Reactive Protein Total Protein Albumin Prealbumin Triglycerides Cholesterol LDL Cholesterol Direct HDL Cholesterol 25-OH Vitamin D Total PTH Intact Urine pH Urine WBC (Auto) Urine Creatinine Urine Total Protein Fluid Total Protein Vancomycin Trough Rheumatoid Factor Complement C4 Miscellaneous Test Crossmatch See Detail 11/25/16 11/25/16 11/25/16 00:03 04:42 04:42 WBC RBC 3.03 L Hgb 8.6 L Hct 25.3 L MCV MCH MCHC RDW 16.2 H Plt Count Lymph % (Auto) Roberts % (Auto) 8.1 H Lymph # Roberts # Baso # Seg Neutrophils % 71.3 H Seg Neuts % (Manual) Lymphocytes % (Manual) Monocytes % (Manual) Eosinophils % (Manual) Basophils % (Manual) Nucleated RBC % Seg Neutrophils # Seg Neutrophils # Man Lymphocytes # (Manual) Monocytes # (Manual) Eosinophils # (Manual) Basophils # (Manual) PT INR Fibrinogen dRVVT Confirm Interp Factor V Activity POC ABG pH POC ABG pCO2 POC ABG pO2 ABG pO2 ABG HCO3 ABG Base Excess ABG Hemoglobin Oxyhemoglobin Sodium Potassium Chloride Carbon Dioxide BUN 61 H Creatinine 3.0 H Glucose 102 H POC Glucose 113 H Lactic Acid Calcium 8.2 L Ionized Calcium Phosphorus Magnesium Direct Bilirubin AST ALT Alkaline Phosphatase 142 H Lactate Dehydrogenase Troponin T C-Reactive Protein Total Protein 5.7 L Albumin 1.5 L Prealbumin Triglycerides Cholesterol LDL Cholesterol Direct HDL Cholesterol 25-OH Vitamin D Total PTH Intact Urine pH Urine WBC (Auto) Urine Creatinine Urine Total Protein Fluid Total Protein Vancomycin Trough Rheumatoid Factor Complement C4 Miscellaneous Test Crossmatch 11/25/16 11/25/16 11/25/16 05:12 11:31 14:12 WBC RBC Hgb Hct MCV MCH MCHC RDW Plt Count Lymph % (Auto) Roberts % (Auto) Lymph # Roberts # Baso # Seg Neutrophils % Seg Neuts % (Manual) Lymphocytes % (Manual) Monocytes % (Manual) Eosinophils % (Manual) Basophils % (Manual) Nucleated RBC % Seg Neutrophils # Seg Neutrophils # Man Lymphocytes # (Manual) Monocytes # (Manual) Eosinophils # (Manual) Basophils # (Manual) PT INR Fibrinogen dRVVT Confirm Interp Factor V Activity POC ABG pH 7.487 H POC ABG pCO2 POC ABG pO2 153 H ABG pO2 ABG HCO3 ABG Base Excess ABG Hemoglobin Oxyhemoglobin Sodium Potassium Chloride Carbon Dioxide BUN Creatinine Glucose POC Glucose 131 H 140 H Lactic Acid Calcium Ionized Calcium Phosphorus Magnesium Direct Bilirubin AST ALT Alkaline Phosphatase Lactate Dehydrogenase Troponin T C-Reactive Protein Total Protein Albumin Prealbumin Triglycerides Cholesterol LDL Cholesterol Direct HDL Cholesterol 25-OH Vitamin D Total PTH Intact Urine pH Urine WBC (Auto) Urine Creatinine Urine Total Protein Fluid Total Protein Vancomycin Trough Rheumatoid Factor Complement C4 Miscellaneous Test Crossmatch 11/25/16 11/26/16 11/26/16 17:23 00:09 05:13 WBC RBC 2.94 L Hgb 8.4 L Hct 24.6 L MCV MCH MCHC RDW 16.4 H Plt Count Lymph % (Auto) Roberts % (Auto) 12.3 H Lymph # Roberts # 1.1 H Baso # Seg Neutrophils % Seg Neuts % (Manual) Lymphocytes % (Manual) Monocytes % (Manual) Eosinophils % (Manual) Basophils % (Manual) Nucleated RBC % Seg Neutrophils # Seg Neutrophils # Man Lymphocytes # (Manual) Monocytes # (Manual) Eosinophils # (Manual) Basophils # (Manual) PT INR Fibrinogen dRVVT Confirm Interp Factor V Activity POC ABG pH POC ABG pCO2 POC ABG pO2 ABG pO2 ABG HCO3 ABG Base Excess ABG Hemoglobin Oxyhemoglobin Sodium Potassium Chloride Carbon Dioxide BUN Creatinine Glucose POC Glucose 146 H 112 H Lactic Acid Calcium Ionized Calcium Phosphorus Magnesium Direct Bilirubin AST ALT Alkaline Phosphatase Lactate Dehydrogenase Troponin T C-Reactive Protein Total Protein Albumin Prealbumin Triglycerides Cholesterol LDL Cholesterol Direct HDL Cholesterol 25-OH Vitamin D Total PTH Intact Urine pH Urine WBC (Auto) Urine Creatinine Urine Total Protein Fluid Total Protein Vancomycin Trough Rheumatoid Factor Complement C4 Miscellaneous Test Crossmatch 11/26/16 11/26/16 11/26/16 05:13 05:28 11:53 WBC RBC Hgb Hct MCV MCH MCHC RDW Plt Count Lymph % (Auto) Roberts % (Auto) Lymph # Roberts # Baso # Seg Neutrophils % Seg Neuts % (Manual) Lymphocytes % (Manual) Monocytes % (Manual) Eosinophils % (Manual) Basophils % (Manual) Nucleated RBC % Seg Neutrophils # Seg Neutrophils # Man Lymphocytes # (Manual) Monocytes # (Manual) Eosinophils # (Manual) Basophils # (Manual) PT INR Fibrinogen dRVVT Confirm Interp Factor V Activity POC ABG pH POC ABG pCO2 POC ABG pO2 ABG pO2 ABG HCO3 ABG Base Excess ABG Hemoglobin Oxyhemoglobin Sodium Potassium Chloride 97.8 L Carbon Dioxide BUN 37 H Creatinine 2.0 H Glucose 109 H POC Glucose 117 H 111 H Lactic Acid Calcium 7.9 L Ionized Calcium Phosphorus 1.80 L D Magnesium Direct Bilirubin AST ALT Alkaline Phosphatase Lactate Dehydrogenase Troponin T C-Reactive Protein Total Protein Albumin Prealbumin Triglycerides Cholesterol LDL Cholesterol Direct HDL Cholesterol 25-OH Vitamin D Total PTH Intact Urine pH Urine WBC (Auto) Urine Creatinine Urine Total Protein Fluid Total Protein Vancomycin Trough Rheumatoid Factor Complement C4 Miscellaneous Test Crossmatch 11/26/16 11/27/16 11/27/16 17:14 04:50 06:02 WBC RBC Hgb Hct MCV MCH MCHC RDW Plt Count Lymph % (Auto) Roberts % (Auto) Lymph # Roberts # Baso # Seg Neutrophils % Seg Neuts % (Manual) Lymphocytes % (Manual) Monocytes % (Manual) Eosinophils % (Manual) Basophils % (Manual) Nucleated RBC % Seg Neutrophils # Seg Neutrophils # Man Lymphocytes # (Manual) Monocytes # (Manual) Eosinophils # (Manual) Basophils # (Manual) PT INR Fibrinogen dRVVT Confirm Interp Factor V Activity POC ABG pH POC ABG pCO2 POC ABG pO2 ABG pO2 75.2 L ABG HCO3 26.4 H ABG Base Excess ABG Hemoglobin 7.6 L Oxyhemoglobin 94.8 L Sodium Potassium Chloride Carbon Dioxide BUN 49 H Creatinine 2.3 H Glucose POC Glucose 115 H Lactic Acid Calcium Ionized Calcium Phosphorus 1.50 L Magnesium Direct Bilirubin AST ALT Alkaline Phosphatase Lactate Dehydrogenase Troponin T C-Reactive Protein Total Protein Albumin Prealbumin Triglycerides Cholesterol LDL Cholesterol Direct HDL Cholesterol 25-OH Vitamin D Total PTH Intact Urine pH Urine WBC (Auto) Urine Creatinine Urine Total Protein Fluid Total Protein Vancomycin Trough Rheumatoid Factor Complement C4 Miscellaneous Test Crossmatch 11/27/16 11/27/16 11/27/16 06:02 11:25 17:25 WBC 11.6 H RBC 2.75 L Hgb 7.6 L Hct 23.4 L MCV MCH MCHC RDW 16.5 H Plt Count Lymph % (Auto) Roberts % (Auto) Lymph # Roberts # Baso # Seg Neutrophils % Seg Neuts % (Manual) Lymphocytes % (Manual) Monocytes % (Manual) Eosinophils % (Manual) Basophils % (Manual) Nucleated RBC % Seg Neutrophils # Seg Neutrophils # Man Lymphocytes # (Manual) Monocytes # (Manual) Eosinophils # (Manual) Basophils # (Manual) PT INR Fibrinogen dRVVT Confirm Interp Factor V Activity POC ABG pH POC ABG pCO2 POC ABG pO2 ABG pO2 ABG HCO3 ABG Base Excess ABG Hemoglobin Oxyhemoglobin Sodium Potassium Chloride Carbon Dioxide BUN Creatinine Glucose POC Glucose 114 H 126 H Lactic Acid Calcium Ionized Calcium Phosphorus Magnesium Direct Bilirubin AST ALT Alkaline Phosphatase Lactate Dehydrogenase Troponin T C-Reactive Protein Total Protein Albumin Prealbumin Triglycerides Cholesterol LDL Cholesterol Direct HDL Cholesterol 25-OH Vitamin D Total PTH Intact Urine pH Urine WBC (Auto) Urine Creatinine Urine Total Protein Fluid Total Protein Vancomycin Trough Rheumatoid Factor Complement C4 Miscellaneous Test Crossmatch 11/28/16 11/28/16 11/28/16 04:45 05:33 05:44 WBC RBC Hgb Hct MCV MCH MCHC RDW Plt Count Lymph % (Auto) Roberts % (Auto) Lymph # Roberts # Baso # Seg Neutrophils % Seg Neuts % (Manual) Lymphocytes % (Manual) Monocytes % (Manual) Eosinophils % (Manual) Basophils % (Manual) Nucleated RBC % Seg Neutrophils # Seg Neutrophils # Man Lymphocytes # (Manual) Monocytes # (Manual) Eosinophils # (Manual) Basophils # (Manual) PT INR Fibrinogen dRVVT Confirm Interp Factor V Activity POC ABG pH POC ABG pCO2 POC ABG pO2 ABG pO2 99.3 H ABG HCO3 ABG Base Excess ABG Hemoglobin 8.3 L Oxyhemoglobin Sodium Potassium Chloride Carbon Dioxide BUN 63 H Creatinine 2.4 H Glucose 102 H POC Glucose 108 H Lactic Acid Calcium Ionized Calcium Phosphorus 1.80 L Magnesium Direct Bilirubin AST ALT Alkaline Phosphatase Lactate Dehydrogenase Troponin T C-Reactive Protein Total Protein Albumin Prealbumin Triglycerides Cholesterol LDL Cholesterol Direct HDL Cholesterol 25-OH Vitamin D Total PTH Intact Urine pH Urine WBC (Auto) Urine Creatinine Urine Total Protein Fluid Total Protein Vancomycin Trough Rheumatoid Factor Complement C4 Miscellaneous Test Crossmatch 11/28/16 11/28/16 11/28/16 12:31 16:09 23:46 WBC RBC Hgb Hct MCV MCH MCHC RDW Plt Count Lymph % (Auto) Roberts % (Auto) Lymph # Roberts # Baso # Seg Neutrophils % Seg Neuts % (Manual) Lymphocytes % (Manual) Monocytes % (Manual) Eosinophils % (Manual) Basophils % (Manual) Nucleated RBC % Seg Neutrophils # Seg Neutrophils # Man Lymphocytes # (Manual) Monocytes # (Manual) Eosinophils # (Manual) Basophils # (Manual) PT INR Fibrinogen dRVVT Confirm Interp Factor V Activity POC ABG pH POC ABG pCO2 POC ABG pO2 ABG pO2 ABG HCO3 ABG Base Excess ABG Hemoglobin Oxyhemoglobin Sodium Potassium Chloride Carbon Dioxide BUN Creatinine Glucose POC Glucose 126 H 111 H 119 H Lactic Acid Calcium Ionized Calcium Phosphorus Magnesium Direct Bilirubin AST ALT Alkaline Phosphatase Lactate Dehydrogenase Troponin T C-Reactive Protein Total Protein Albumin Prealbumin Triglycerides Cholesterol LDL Cholesterol Direct HDL Cholesterol 25-OH Vitamin D Total PTH Intact Urine pH Urine WBC (Auto) Urine Creatinine Urine Total Protein Fluid Total Protein Vancomycin Trough Rheumatoid Factor Complement C4 Miscellaneous Test Crossmatch 11/29/16 11/29/16 11/29/16 03:33 04:52 05:10 WBC RBC Hgb Hct MCV MCH MCHC RDW Plt Count Lymph % (Auto) Roberts % (Auto) Lymph # Roberts # Baso # Seg Neutrophils % Seg Neuts % (Manual) Lymphocytes % (Manual) Monocytes % (Manual) Eosinophils % (Manual) Basophils % (Manual) Nucleated RBC % Seg Neutrophils # Seg Neutrophils # Man Lymphocytes # (Manual) Monocytes # (Manual) Eosinophils # (Manual) Basophils # (Manual) PT INR Fibrinogen dRVVT Confirm Interp Factor V Activity POC ABG pH POC ABG pCO2 POC ABG pO2 ABG pO2 ABG HCO3 ABG Base Excess ABG Hemoglobin 7.0 L Oxyhemoglobin 94.9 L Sodium Potassium Chloride Carbon Dioxide BUN 73 H Creatinine 2.7 H Glucose POC Glucose 108 H Lactic Acid Calcium Ionized Calcium Phosphorus Magnesium Direct Bilirubin AST ALT Alkaline Phosphatase Lactate Dehydrogenase Troponin T C-Reactive Protein Total Protein Albumin Prealbumin Triglycerides Cholesterol LDL Cholesterol Direct HDL Cholesterol 25-OH Vitamin D Total PTH Intact Urine pH Urine WBC (Auto) Urine Creatinine Urine Total Protein Fluid Total Protein Vancomycin Trough Rheumatoid Factor Complement C4 Miscellaneous Test Crossmatch 11/29/16 11/29/16 11/29/16 12:16 18:05 23:46 WBC RBC Hgb Hct MCV MCH MCHC RDW Plt Count Lymph % (Auto) Roberts % (Auto) Lymph # Roberts # Baso # Seg Neutrophils % Seg Neuts % (Manual) Lymphocytes % (Manual) Monocytes % (Manual) Eosinophils % (Manual) Basophils % (Manual) Nucleated RBC % Seg Neutrophils # Seg Neutrophils # Man Lymphocytes # (Manual) Monocytes # (Manual) Eosinophils # (Manual) Basophils # (Manual) PT INR Fibrinogen dRVVT Confirm Interp Factor V Activity POC ABG pH POC ABG pCO2 POC ABG pO2 ABG pO2 ABG HCO3 ABG Base Excess ABG Hemoglobin Oxyhemoglobin Sodium Potassium Chloride Carbon Dioxide BUN Creatinine Glucose POC Glucose 133 H 146 H 141 H Lactic Acid Calcium Ionized Calcium Phosphorus Magnesium Direct Bilirubin AST ALT Alkaline Phosphatase Lactate Dehydrogenase Troponin T C-Reactive Protein Total Protein Albumin Prealbumin Triglycerides Cholesterol LDL Cholesterol Direct HDL Cholesterol 25-OH Vitamin D Total PTH Intact Urine pH Urine WBC (Auto) Urine Creatinine Urine Total Protein Fluid Total Protein Vancomycin Trough Rheumatoid Factor Complement C4 Miscellaneous Test Crossmatch 11/30/16 11/30/16 11/30/16 04:17 04:17 04:32 WBC 12.0 H RBC 2.80 L Hgb 7.8 L Hct 23.6 L MCV MCH MCHC RDW 16.6 H Plt Count Lymph % (Auto) Roberts % (Auto) 11.3 H Lymph # Roberts # 1.4 H Baso # Seg Neutrophils % Seg Neuts % (Manual) Lymphocytes % (Manual) Monocytes % (Manual) Eosinophils % (Manual) Basophils % (Manual) Nucleated RBC % Seg Neutrophils # 8.2 H Seg Neutrophils # Man Lymphocytes # (Manual) Monocytes # (Manual) Eosinophils # (Manual) Basophils # (Manual) PT INR Fibrinogen dRVVT Confirm Interp Factor V Activity POC ABG pH POC ABG pCO2 POC ABG pO2 ABG pO2 ABG HCO3 ABG Base Excess ABG Hemoglobin Oxyhemoglobin Sodium 169 H* D Potassium 5.1 H Chloride 121.5 H Carbon Dioxide BUN 34 H Creatinine 1.3 H D Glucose 133 H POC Glucose 131 H Lactic Acid Calcium 10.3 H Ionized Calcium Phosphorus Magnesium Direct Bilirubin AST ALT Alkaline Phosphatase Lactate Dehydrogenase Troponin T C-Reactive Protein Total Protein Albumin Prealbumin Triglycerides Cholesterol LDL Cholesterol Direct HDL Cholesterol 25-OH Vitamin D Total PTH Intact Urine pH Urine WBC (Auto) Urine Creatinine Urine Total Protein Fluid Total Protein Vancomycin Trough Rheumatoid Factor Complement C4 Miscellaneous Test Crossmatch 11/30/16 11/30/16 11/30/16 05:45 11:10 17:26 WBC RBC Hgb Hct MCV MCH MCHC RDW Plt Count Lymph % (Auto) Roberts % (Auto) Lymph # Roberts # Baso # Seg Neutrophils % Seg Neuts % (Manual) Lymphocytes % (Manual) Monocytes % (Manual) Eosinophils % (Manual) Basophils % (Manual) Nucleated RBC % Seg Neutrophils # Seg Neutrophils # Man Lymphocytes # (Manual) Monocytes # (Manual) Eosinophils # (Manual) Basophils # (Manual) PT INR Fibrinogen dRVVT Confirm Interp Factor V Activity POC ABG pH POC ABG pCO2 POC ABG pO2 ABG pO2 ABG HCO3 ABG Base Excess ABG Hemoglobin Oxyhemoglobin Sodium Potassium Chloride Carbon Dioxide BUN 45 H Creatinine 1.6 H Glucose 131 H POC Glucose 146 H 134 H Lactic Acid Calcium Ionized Calcium Phosphorus Magnesium Direct Bilirubin AST ALT Alkaline Phosphatase Lactate Dehydrogenase Troponin T C-Reactive Protein Total Protein Albumin Prealbumin Triglycerides Cholesterol LDL Cholesterol Direct HDL Cholesterol 25-OH Vitamin D Total PTH Intact Urine pH Urine WBC (Auto) Urine Creatinine Urine Total Protein Fluid Total Protein Vancomycin Trough Rheumatoid Factor Complement C4 Miscellaneous Test Crossmatch 11/30/16 12/01/16 12/01/16 23:35 00:06 03:35 WBC RBC Hgb Hct MCV MCH MCHC RDW Plt Count Lymph % (Auto) Roberts % (Auto) Lymph # Roberts # Baso # Seg Neutrophils % Seg Neuts % (Manual) Lymphocytes % (Manual) Monocytes % (Manual) Eosinophils % (Manual) Basophils % (Manual) Nucleated RBC % Seg Neutrophils # Seg Neutrophils # Man Lymphocytes # (Manual) Monocytes # (Manual) Eosinophils # (Manual) Basophils # (Manual) PT INR Fibrinogen dRVVT Confirm Interp Factor V Activity POC ABG pH POC ABG pCO2 POC ABG pO2 ABG pO2 ABG HCO3 ABG Base Excess ABG Hemoglobin 6.9 L Oxyhemoglobin Sodium Potassium Chloride Carbon Dioxide BUN 58 H Creatinine 1.8 H Glucose 146 H POC Glucose 151 H Lactic Acid Calcium Ionized Calcium Phosphorus Magnesium Direct Bilirubin AST ALT Alkaline Phosphatase Lactate Dehydrogenase Troponin T C-Reactive Protein Total Protein Albumin Prealbumin Triglycerides Cholesterol LDL Cholesterol Direct HDL Cholesterol 25-OH Vitamin D Total PTH Intact Urine pH Urine WBC (Auto) Urine Creatinine Urine Total Protein Fluid Total Protein Vancomycin Trough Rheumatoid Factor Complement C4 Miscellaneous Test Crossmatch 12/01/16 12/01/16 12/01/16 03:35 05:47 11:52 WBC 12.3 H RBC 2.82 L Hgb 7.8 L Hct 23.7 L MCV MCH MCHC RDW 16.7 H Plt Count Lymph % (Auto) Roberts % (Auto) 9.8 H Lymph # Roberts # 1.2 H Baso # Seg Neutrophils % Seg Neuts % (Manual) Lymphocytes % (Manual) Monocytes % (Manual) Eosinophils % (Manual) Basophils % (Manual) Nucleated RBC % Seg Neutrophils # 8.4 H Seg Neutrophils # Man Lymphocytes # (Manual) Monocytes # (Manual) Eosinophils # (Manual) Basophils # (Manual) PT INR Fibrinogen dRVVT Confirm Interp Factor V Activity POC ABG pH POC ABG pCO2 POC ABG pO2 ABG pO2 ABG HCO3 ABG Base Excess ABG Hemoglobin Oxyhemoglobin Sodium Potassium Chloride Carbon Dioxide BUN Creatinine Glucose POC Glucose 152 H 152 H Lactic Acid Calcium Ionized Calcium Phosphorus Magnesium Direct Bilirubin AST ALT Alkaline Phosphatase Lactate Dehydrogenase Troponin T C-Reactive Protein Total Protein Albumin Prealbumin Triglycerides Cholesterol LDL Cholesterol Direct HDL Cholesterol 25-OH Vitamin D Total PTH Intact Urine pH Urine WBC (Auto) Urine Creatinine Urine Total Protein Fluid Total Protein Vancomycin Trough Rheumatoid Factor Complement C4 Miscellaneous Test Crossmatch 12/01/16 12/01/16 12/02/16 17:40 23:41 05:00 WBC RBC Hgb Hct MCV MCH MCHC RDW Plt Count Lymph % (Auto) Roberts % (Auto) Lymph # Roberts # Baso # Seg Neutrophils % Seg Neuts % (Manual) Lymphocytes % (Manual) Monocytes % (Manual) Eosinophils % (Manual) Basophils % (Manual) Nucleated RBC % Seg Neutrophils # Seg Neutrophils # Man Lymphocytes # (Manual) Monocytes # (Manual) Eosinophils # (Manual) Basophils # (Manual) PT INR Fibrinogen dRVVT Confirm Interp Factor V Activity POC ABG pH POC ABG pCO2 POC ABG pO2 ABG pO2 ABG HCO3 ABG Base Excess ABG Hemoglobin Oxyhemoglobin Sodium Potassium Chloride Carbon Dioxide BUN 45 H Creatinine Glucose 115 H POC Glucose 140 H 144 H Lactic Acid Calcium Ionized Calcium Phosphorus Magnesium Direct Bilirubin AST ALT Alkaline Phosphatase Lactate Dehydrogenase Troponin T C-Reactive Protein Total Protein Albumin Prealbumin Triglycerides Cholesterol LDL Cholesterol Direct HDL Cholesterol 25-OH Vitamin D Total PTH Intact Urine pH Urine WBC (Auto) Urine Creatinine Urine Total Protein Fluid Total Protein Vancomycin Trough Rheumatoid Factor Complement C4 Miscellaneous Test Crossmatch 12/02/16 12/02/16 12/02/16 05:31 11:20 17:38 WBC RBC Hgb Hct MCV MCH MCHC RDW Plt Count Lymph % (Auto) Roberts % (Auto) Lymph # Roberts # Baso # Seg Neutrophils % Seg Neuts % (Manual) Lymphocytes % (Manual) Monocytes % (Manual) Eosinophils % (Manual) Basophils % (Manual) Nucleated RBC % Seg Neutrophils # Seg Neutrophils # Man Lymphocytes # (Manual) Monocytes # (Manual) Eosinophils # (Manual) Basophils # (Manual) PT INR Fibrinogen dRVVT Confirm Interp Factor V Activity POC ABG pH POC ABG pCO2 POC ABG pO2 ABG pO2 ABG HCO3 ABG Base Excess ABG Hemoglobin Oxyhemoglobin Sodium Potassium Chloride Carbon Dioxide BUN Creatinine Glucose POC Glucose 136 H 177 H 139 H Lactic Acid Calcium Ionized Calcium Phosphorus Magnesium Direct Bilirubin AST ALT Alkaline Phosphatase Lactate Dehydrogenase Troponin T C-Reactive Protein Total Protein Albumin Prealbumin Triglycerides Cholesterol LDL Cholesterol Direct HDL Cholesterol 25-OH Vitamin D Total PTH Intact Urine pH Urine WBC (Auto) Urine Creatinine Urine Total Protein Fluid Total Protein Vancomycin Trough Rheumatoid Factor Complement C4 Miscellaneous Test Crossmatch 12/02/16 12/03/16 12/03/16 23:43 04:00 04:00 WBC 20.4 H RBC 2.74 L Hgb 7.4 L Hct 23.6 L MCV MCH 27 L MCHC RDW 17.1 H Plt Count Lymph % (Auto) Roberts % (Auto) Lymph # Roberts # Baso # Seg Neutrophils % Seg Neuts % (Manual) 31.0 L Lymphocytes % (Manual) Monocytes % (Manual) Eosinophils % (Manual) Basophils % (Manual) Nucleated RBC % Seg Neutrophils # Seg Neutrophils # Man Lymphocytes # (Manual) Monocytes # (Manual) Eosinophils # (Manual) Basophils # (Manual) PT INR Fibrinogen dRVVT Confirm Interp Factor V Activity POC ABG pH POC ABG pCO2 POC ABG pO2 ABG pO2 ABG HCO3 ABG Base Excess ABG Hemoglobin Oxyhemoglobin Sodium Potassium Chloride Carbon Dioxide BUN 61 H Creatinine 1.6 H Glucose 119 H POC Glucose 158 H Lactic Acid Calcium Ionized Calcium Phosphorus Magnesium Direct Bilirubin AST ALT Alkaline Phosphatase Lactate Dehydrogenase Troponin T C-Reactive Protein Total Protein Albumin Prealbumin Triglycerides Cholesterol LDL Cholesterol Direct HDL Cholesterol 25-OH Vitamin D Total PTH Intact Urine pH Urine WBC (Auto) Urine Creatinine Urine Total Protein Fluid Total Protein Vancomycin Trough Rheumatoid Factor Complement C4 Miscellaneous Test Crossmatch 12/03/16 12/03/16 12/03/16 05:02 12:11 18:16 WBC RBC Hgb Hct MCV MCH MCHC RDW Plt Count Lymph % (Auto) Roberts % (Auto) Lymph # Roberts # Baso # Seg Neutrophils % Seg Neuts % (Manual) Lymphocytes % (Manual) Monocytes % (Manual) Eosinophils % (Manual) Basophils % (Manual) Nucleated RBC % Seg Neutrophils # Seg Neutrophils # Man Lymphocytes # (Manual) Monocytes # (Manual) Eosinophils # (Manual) Basophils # (Manual) PT INR Fibrinogen dRVVT Confirm Interp Factor V Activity POC ABG pH POC ABG pCO2 POC ABG pO2 ABG pO2 ABG HCO3 ABG Base Excess ABG Hemoglobin Oxyhemoglobin Sodium Potassium Chloride Carbon Dioxide BUN Creatinine Glucose POC Glucose 146 H 157 H 124 H Lactic Acid Calcium Ionized Calcium Phosphorus Magnesium Direct Bilirubin AST ALT Alkaline Phosphatase Lactate Dehydrogenase Troponin T C-Reactive Protein Total Protein Albumin Prealbumin Triglycerides Cholesterol LDL Cholesterol Direct HDL Cholesterol 25-OH Vitamin D Total PTH Intact Urine pH Urine WBC (Auto) Urine Creatinine Urine Total Protein Fluid Total Protein Vancomycin Trough Rheumatoid Factor Complement C4 Miscellaneous Test Crossmatch 12/03/16 12/04/16 12/04/16 23:41 04:00 04:45 WBC RBC Hgb Hct MCV MCH MCHC RDW Plt Count Lymph % (Auto) Roberts % (Auto) Lymph # Roberts # Baso # Seg Neutrophils % Seg Neuts % (Manual) Lymphocytes % (Manual) Monocytes % (Manual) Eosinophils % (Manual) Basophils % (Manual) Nucleated RBC % Seg Neutrophils # Seg Neutrophils # Man Lymphocytes # (Manual) Monocytes # (Manual) Eosinophils # (Manual) Basophils # (Manual) PT INR Fibrinogen dRVVT Confirm Interp Factor V Activity POC ABG pH POC ABG pCO2 POC ABG pO2 ABG pO2 ABG HCO3 ABG Base Excess ABG Hemoglobin Oxyhemoglobin Sodium Potassium Chloride Carbon Dioxide BUN 76 H Creatinine 1.6 H Glucose POC Glucose 130 H 136 H Lactic Acid Calcium Ionized Calcium Phosphorus Magnesium Direct Bilirubin AST ALT Alkaline Phosphatase 155 H Lactate Dehydrogenase Troponin T C-Reactive Protein Total Protein 5.5 L Albumin 1.5 L Prealbumin Triglycerides Cholesterol LDL Cholesterol Direct HDL Cholesterol 25-OH Vitamin D Total PTH Intact Urine pH Urine WBC (Auto) Urine Creatinine Urine Total Protein Fluid Total Protein Vancomycin Trough Rheumatoid Factor Complement C4 Miscellaneous Test Crossmatch 12/04/16 12/04/16 12/05/16 12:08 17:23 00:10 WBC RBC Hgb Hct MCV MCH MCHC RDW Plt Count Lymph % (Auto) Roberts % (Auto) Lymph # Roberts # Baso # Seg Neutrophils % Seg Neuts % (Manual) Lymphocytes % (Manual) Monocytes % (Manual) Eosinophils % (Manual) Basophils % (Manual) Nucleated RBC % Seg Neutrophils # Seg Neutrophils # Man Lymphocytes # (Manual) Monocytes # (Manual) Eosinophils # (Manual) Basophils # (Manual) PT INR Fibrinogen dRVVT Confirm Interp Factor V Activity POC ABG pH POC ABG pCO2 POC ABG pO2 ABG pO2 ABG HCO3 ABG Base Excess ABG Hemoglobin Oxyhemoglobin Sodium Potassium Chloride Carbon Dioxide BUN Creatinine Glucose POC Glucose 114 H 129 H 124 H Lactic Acid Calcium Ionized Calcium Phosphorus Magnesium Direct Bilirubin AST ALT Alkaline Phosphatase Lactate Dehydrogenase Troponin T C-Reactive Protein Total Protein Albumin Prealbumin Triglycerides Cholesterol LDL Cholesterol Direct HDL Cholesterol 25-OH Vitamin D Total PTH Intact Urine pH Urine WBC (Auto) Urine Creatinine Urine Total Protein Fluid Total Protein Vancomycin Trough Rheumatoid Factor Complement C4 Miscellaneous Test Crossmatch 12/05/16 12/05/16 12/05/16 05:00 05:00 05:18 WBC RBC Hgb Hct MCV MCH MCHC RDW Plt Count Lymph % (Auto) Roberts % (Auto) Lymph # Roberts # Baso # Seg Neutrophils % Seg Neuts % (Manual) Lymphocytes % (Manual) Monocytes % (Manual) Eosinophils % (Manual) Basophils % (Manual) Nucleated RBC % Seg Neutrophils # Seg Neutrophils # Man Lymphocytes # (Manual) Monocytes # (Manual) Eosinophils # (Manual) Basophils # (Manual) PT INR Fibrinogen dRVVT Confirm Interp Factor V Activity POC ABG pH POC ABG pCO2 POC ABG pO2 ABG pO2 ABG HCO3 ABG Base Excess ABG Hemoglobin Oxyhemoglobin Sodium Potassium Chloride Carbon Dioxide 21 L BUN 85 H Creatinine 1.9 H Glucose 131 H POC Glucose 154 H Lactic Acid Calcium Ionized Calcium Phosphorus Magnesium Direct Bilirubin AST ALT Alkaline Phosphatase Lactate Dehydrogenase Troponin T C-Reactive Protein 19.30 H Total Protein Albumin Prealbumin Triglycerides Cholesterol LDL Cholesterol Direct HDL Cholesterol 25-OH Vitamin D Total PTH Intact Urine pH Urine WBC (Auto) Urine Creatinine Urine Total Protein Fluid Total Protein Vancomycin Trough Rheumatoid Factor Complement C4 Miscellaneous Test Crossmatch 12/05/16 12/05/16 12/05/16 11:43 17:46 23:25 WBC RBC Hgb Hct MCV MCH MCHC RDW Plt Count Lymph % (Auto) Roberts % (Auto) Lymph # Roberts # Baso # Seg Neutrophils % Seg Neuts % (Manual) Lymphocytes % (Manual) Monocytes % (Manual) Eosinophils % (Manual) Basophils % (Manual) Nucleated RBC % Seg Neutrophils # Seg Neutrophils # Man Lymphocytes # (Manual) Monocytes # (Manual) Eosinophils # (Manual) Basophils # (Manual) PT INR Fibrinogen dRVVT Confirm Interp Factor V Activity POC ABG pH POC ABG pCO2 POC ABG pO2 ABG pO2 ABG HCO3 ABG Base Excess ABG Hemoglobin Oxyhemoglobin Sodium Potassium Chloride Carbon Dioxide BUN Creatinine Glucose POC Glucose 117 H 113 H 111 H Lactic Acid Calcium Ionized Calcium Phosphorus Magnesium Direct Bilirubin AST ALT Alkaline Phosphatase Lactate Dehydrogenase Troponin T C-Reactive Protein Total Protein Albumin Prealbumin Triglycerides Cholesterol LDL Cholesterol Direct HDL Cholesterol 25-OH Vitamin D Total PTH Intact Urine pH Urine WBC (Auto) Urine Creatinine Urine Total Protein Fluid Total Protein Vancomycin Trough Rheumatoid Factor Complement C4 Miscellaneous Test Crossmatch 12/05/16 12/06/16 12/06/16 Unknown 04:58 06:00 WBC RBC Hgb Hct MCV MCH MCHC RDW Plt Count Lymph % (Auto) Roberts % (Auto) Lymph # Roberts # Baso # Seg Neutrophils % Seg Neuts % (Manual) Lymphocytes % (Manual) Monocytes % (Manual) Eosinophils % (Manual) Basophils % (Manual) Nucleated RBC % Seg Neutrophils # Seg Neutrophils # Man Lymphocytes # (Manual) Monocytes # (Manual) Eosinophils # (Manual) Basophils # (Manual) PT INR Fibrinogen dRVVT Confirm Interp Factor V Activity POC ABG pH POC ABG pCO2 POC ABG pO2 ABG pO2 75.2 L ABG HCO3 ABG Base Excess -3.4 L ABG Hemoglobin 7.4 L Oxyhemoglobin 94.5 L Sodium Potassium Chloride Carbon Dioxide 20 L BUN 99 H Creatinine 2.1 H Glucose 126 H POC Glucose 145 H Lactic Acid Calcium Ionized Calcium Phosphorus 4.80 H Magnesium Direct Bilirubin AST ALT Alkaline Phosphatase Lactate Dehydrogenase Troponin T C-Reactive Protein Total Protein Albumin Prealbumin Triglycerides Cholesterol LDL Cholesterol Direct HDL Cholesterol 25-OH Vitamin D Total PTH Intact Urine pH Urine WBC (Auto) Urine Creatinine Urine Total Protein Fluid Total Protein Vancomycin Trough Rheumatoid Factor Complement C4 Miscellaneous Test Crossmatch 12/06/16 12/06/16 12/06/16 06:46 11:54 17:55 WBC RBC Hgb 8.3 L Hct 26.4 L MCV MCH MCHC RDW Plt Count Lymph % (Auto) Roberts % (Auto) Lymph # Roberts # Baso # Seg Neutrophils % Seg Neuts % (Manual) Lymphocytes % (Manual) Monocytes % (Manual) Eosinophils % (Manual) Basophils % (Manual) Nucleated RBC % Seg Neutrophils # Seg Neutrophils # Man Lymphocytes # (Manual) Monocytes # (Manual) Eosinophils # (Manual) Basophils # (Manual) PT INR Fibrinogen dRVVT Confirm Interp Factor V Activity POC ABG pH POC ABG pCO2 POC ABG pO2 ABG pO2 ABG HCO3 ABG Base Excess ABG Hemoglobin Oxyhemoglobin Sodium Potassium Chloride Carbon Dioxide BUN Creatinine Glucose POC Glucose 126 H 157 H Lactic Acid Calcium Ionized Calcium Phosphorus Magnesium Direct Bilirubin AST ALT Alkaline Phosphatase Lactate Dehydrogenase Troponin T C-Reactive Protein Total Protein Albumin Prealbumin Triglycerides Cholesterol LDL Cholesterol Direct HDL Cholesterol 25-OH Vitamin D Total PTH Intact Urine pH Urine WBC (Auto) Urine Creatinine Urine Total Protein Fluid Total Protein Vancomycin Trough Rheumatoid Factor Complement C4 Miscellaneous Test Crossmatch 12/06/16 12/07/16 12/07/16 23:59 05:34 06:30 WBC RBC Hgb Hct MCV MCH MCHC RDW Plt Count Lymph % (Auto) Roberts % (Auto) Lymph # Roberts # Baso # Seg Neutrophils % Seg Neuts % (Manual) Lymphocytes % (Manual) Monocytes % (Manual) Eosinophils % (Manual) Basophils % (Manual) Nucleated RBC % Seg Neutrophils # Seg Neutrophils # Man Lymphocytes # (Manual) Monocytes # (Manual) Eosinophils # (Manual) Basophils # (Manual) PT INR Fibrinogen dRVVT Confirm Interp Factor V Activity POC ABG pH POC ABG pCO2 POC ABG pO2 ABG pO2 ABG HCO3 ABG Base Excess ABG Hemoglobin Oxyhemoglobin Sodium Potassium Chloride Carbon Dioxide BUN 67 H Creatinine 1.4 H Glucose 126 H POC Glucose 129 H 129 H Lactic Acid Calcium Ionized Calcium Phosphorus Magnesium Direct Bilirubin AST ALT Alkaline Phosphatase Lactate Dehydrogenase Troponin T C-Reactive Protein Total Protein Albumin Prealbumin Triglycerides Cholesterol LDL Cholesterol Direct HDL Cholesterol 25-OH Vitamin D Total PTH Intact Urine pH Urine WBC (Auto) Urine Creatinine Urine Total Protein Fluid Total Protein Vancomycin Trough Rheumatoid Factor Complement C4 Miscellaneous Test Crossmatch 12/07/16 12/07/16 12/07/16 06:30 08:00 09:45 WBC 18.8 H RBC 2.52 L Hgb 6.9 L 6.8 L Hct 21.2 L 21.1 L MCV MCH 27 L MCHC RDW 18.0 H Plt Count Lymph % (Auto) Roberts % (Auto) 9.9 H Lymph # Roberts # 1.9 H Baso # Seg Neutrophils % 71.8 H Seg Neuts % (Manual) Lymphocytes % (Manual) Monocytes % (Manual) Eosinophils % (Manual) Basophils % (Manual) Nucleated RBC % Seg Neutrophils # 13.5 H Seg Neutrophils # Man Lymphocytes # (Manual) Monocytes # (Manual) Eosinophils # (Manual) Basophils # (Manual) PT INR Fibrinogen dRVVT Confirm Interp Factor V Activity POC ABG pH POC ABG pCO2 POC ABG pO2 ABG pO2 ABG HCO3 ABG Base Excess ABG Hemoglobin Oxyhemoglobin Sodium Potassium Chloride Carbon Dioxide BUN Creatinine Glucose POC Glucose Lactic Acid Calcium Ionized Calcium Phosphorus Magnesium Direct Bilirubin AST ALT Alkaline Phosphatase Lactate Dehydrogenase Troponin T C-Reactive Protein Total Protein Albumin Prealbumin Triglycerides Cholesterol LDL Cholesterol Direct HDL Cholesterol 25-OH Vitamin D Total PTH Intact Urine pH Urine WBC (Auto) Urine Creatinine Urine Total Protein Fluid Total Protein Vancomycin Trough Rheumatoid Factor Complement C4 Miscellaneous Test Crossmatch See Detail 12/07/16 12/07/16 12/07/16 11:44 18:19 23:59 WBC RBC Hgb Hct MCV MCH MCHC RDW Plt Count Lymph % (Auto) Roberts % (Auto) Lymph # Roberts # Baso # Seg Neutrophils % Seg Neuts % (Manual) Lymphocytes % (Manual) Monocytes % (Manual) Eosinophils % (Manual) Basophils % (Manual) Nucleated RBC % Seg Neutrophils # Seg Neutrophils # Man Lymphocytes # (Manual) Monocytes # (Manual) Eosinophils # (Manual) Basophils # (Manual) PT INR Fibrinogen dRVVT Confirm Interp Factor V Activity POC ABG pH POC ABG pCO2 POC ABG pO2 ABG pO2 ABG HCO3 ABG Base Excess ABG Hemoglobin Oxyhemoglobin Sodium Potassium Chloride Carbon Dioxide BUN Creatinine Glucose POC Glucose 137 H 138 H 133 H Lactic Acid Calcium Ionized Calcium Phosphorus Magnesium Direct Bilirubin AST ALT Alkaline Phosphatase Lactate Dehydrogenase Troponin T C-Reactive Protein Total Protein Albumin Prealbumin Triglycerides Cholesterol LDL Cholesterol Direct HDL Cholesterol 25-OH Vitamin D Total PTH Intact Urine pH Urine WBC (Auto) Urine Creatinine Urine Total Protein Fluid Total Protein Vancomycin Trough Rheumatoid Factor Complement C4 Miscellaneous Test Crossmatch 12/08/16 12/08/16 12/08/16 05:25 05:30 05:30 WBC 23.8 H RBC 2.88 L Hgb 8.1 L Hct 24.3 L MCV MCH MCHC RDW 16.7 H Plt Count Lymph % (Auto) Roberts % (Auto) Lymph # Roberts # Baso # Seg Neutrophils % Seg Neuts % (Manual) 76.0 H Lymphocytes % (Manual) 9.0 L Monocytes % (Manual) 9.0 H Eosinophils % (Manual) Basophils % (Manual) Nucleated RBC % Seg Neutrophils # Seg Neutrophils # Man 18.1 H Lymphocytes # (Manual) Monocytes # (Manual) 2.1 H Eosinophils # (Manual) Basophils # (Manual) PT INR Fibrinogen dRVVT Confirm Interp Factor V Activity POC ABG pH POC ABG pCO2 POC ABG pO2 ABG pO2 ABG HCO3 ABG Base Excess ABG Hemoglobin Oxyhemoglobin Sodium Potassium Chloride Carbon Dioxide 21 L BUN 76 H Creatinine 1.6 H Glucose 133 H POC Glucose 177 H Lactic Acid Calcium Ionized Calcium Phosphorus Magnesium Direct Bilirubin AST ALT Alkaline Phosphatase Lactate Dehydrogenase Troponin T C-Reactive Protein Total Protein Albumin Prealbumin Triglycerides Cholesterol LDL Cholesterol Direct HDL Cholesterol 25-OH Vitamin D Total PTH Intact Urine pH Urine WBC (Auto) Urine Creatinine Urine Total Protein Fluid Total Protein Vancomycin Trough Rheumatoid Factor Complement C4 Miscellaneous Test Crossmatch 12/08/16 12/08/16 12/09/16 11:45 18:00 00:00 WBC RBC Hgb Hct MCV MCH MCHC RDW Plt Count Lymph % (Auto) Roberts % (Auto) Lymph # Roberts # Baso # Seg Neutrophils % Seg Neuts % (Manual) Lymphocytes % (Manual) Monocytes % (Manual) Eosinophils % (Manual) Basophils % (Manual) Nucleated RBC % Seg Neutrophils # Seg Neutrophils # Man Lymphocytes # (Manual) Monocytes # (Manual) Eosinophils # (Manual) Basophils # (Manual) PT INR Fibrinogen dRVVT Confirm Interp Factor V Activity POC ABG pH POC ABG pCO2 POC ABG pO2 ABG pO2 ABG HCO3 ABG Base Excess ABG Hemoglobin Oxyhemoglobin Sodium Potassium Chloride Carbon Dioxide BUN Creatinine Glucose POC Glucose 163 H 123 H 137 H Lactic Acid Calcium Ionized Calcium Phosphorus Magnesium Direct Bilirubin AST ALT Alkaline Phosphatase Lactate Dehydrogenase Troponin T C-Reactive Protein Total Protein Albumin Prealbumin Triglycerides Cholesterol LDL Cholesterol Direct HDL Cholesterol 25-OH Vitamin D Total PTH Intact Urine pH Urine WBC (Auto) Urine Creatinine Urine Total Protein Fluid Total Protein Vancomycin Trough Rheumatoid Factor Complement C4 Miscellaneous Test Crossmatch 12/09/16 12/09/16 12/09/16 05:34 06:00 06:00 WBC 15.5 H RBC 2.87 L Hgb 8.0 L Hct 24.2 L MCV MCH MCHC RDW 17.2 H Plt Count Lymph % (Auto) Roberts % (Auto) 11.6 H Lymph # Roberts # 1.8 H Baso # Seg Neutrophils % 70.8 H Seg Neuts % (Manual) Lymphocytes % (Manual) Monocytes % (Manual) Eosinophils % (Manual) Basophils % (Manual) Nucleated RBC % Seg Neutrophils # 11.0 H Seg Neutrophils # Man Lymphocytes # (Manual) Monocytes # (Manual) Eosinophils # (Manual) Basophils # (Manual) PT INR Fibrinogen dRVVT Confirm Interp Factor V Activity POC ABG pH POC ABG pCO2 POC ABG pO2 ABG pO2 ABG HCO3 ABG Base Excess ABG Hemoglobin Oxyhemoglobin Sodium Potassium Chloride Carbon Dioxide BUN 51 H Creatinine Glucose 117 H POC Glucose 136 H Lactic Acid Calcium Ionized Calcium Phosphorus Magnesium Direct Bilirubin AST ALT Alkaline Phosphatase Lactate Dehydrogenase Troponin T C-Reactive Protein Total Protein Albumin Prealbumin Triglycerides Cholesterol LDL Cholesterol Direct HDL Cholesterol 25-OH Vitamin D Total PTH Intact Urine pH Urine WBC (Auto) Urine Creatinine Urine Total Protein Fluid Total Protein Vancomycin Trough Rheumatoid Factor Complement C4 Miscellaneous Test Crossmatch 12/09/16 12/09/16 12/09/16 12:29 17:52 23:10 WBC RBC Hgb Hct MCV MCH MCHC RDW Plt Count Lymph % (Auto) Roberts % (Auto) Lymph # Roberts # Baso # Seg Neutrophils % Seg Neuts % (Manual) Lymphocytes % (Manual) Monocytes % (Manual) Eosinophils % (Manual) Basophils % (Manual) Nucleated RBC % Seg Neutrophils # Seg Neutrophils # Man Lymphocytes # (Manual) Monocytes # (Manual) Eosinophils # (Manual) Basophils # (Manual) PT INR Fibrinogen dRVVT Confirm Interp Factor V Activity POC ABG pH POC ABG pCO2 POC ABG pO2 ABG pO2 ABG HCO3 ABG Base Excess ABG Hemoglobin Oxyhemoglobin Sodium Potassium Chloride Carbon Dioxide BUN Creatinine Glucose POC Glucose 139 H 140 H 129 H Lactic Acid Calcium Ionized Calcium Phosphorus Magnesium Direct Bilirubin AST ALT Alkaline Phosphatase Lactate Dehydrogenase Troponin T C-Reactive Protein Total Protein Albumin Prealbumin Triglycerides Cholesterol LDL Cholesterol Direct HDL Cholesterol 25-OH Vitamin D Total PTH Intact Urine pH Urine WBC (Auto) Urine Creatinine Urine Total Protein Fluid Total Protein Vancomycin Trough Rheumatoid Factor Complement C4 Miscellaneous Test Crossmatch 12/10/16 12/10/16 12/10/16 05:00 05:00 06:54 WBC 15.7 H RBC 2.87 L Hgb 8.2 L Hct 24.4 L MCV MCH MCHC RDW 17.2 H Plt Count Lymph % (Auto) Roberts % (Auto) 8.3 H Lymph # Roberts # 1.3 H Baso # Seg Neutrophils % 72.8 H Seg Neuts % (Manual) Lymphocytes % (Manual) Monocytes % (Manual) Eosinophils % (Manual) Basophils % (Manual) Nucleated RBC % Seg Neutrophils # 11.4 H Seg Neutrophils # Man Lymphocytes # (Manual) Monocytes # (Manual) Eosinophils # (Manual) Basophils # (Manual) PT INR Fibrinogen dRVVT Confirm Interp Factor V Activity POC ABG pH POC ABG pCO2 POC ABG pO2 ABG pO2 ABG HCO3 ABG Base Excess ABG Hemoglobin Oxyhemoglobin Sodium Potassium Chloride Carbon Dioxide BUN 64 H Creatinine 1.4 H Glucose 134 H POC Glucose 154 H Lactic Acid Calcium Ionized Calcium Phosphorus Magnesium Direct Bilirubin AST ALT Alkaline Phosphatase Lactate Dehydrogenase Troponin T C-Reactive Protein Total Protein Albumin Prealbumin Triglycerides Cholesterol LDL Cholesterol Direct HDL Cholesterol 25-OH Vitamin D Total PTH Intact Urine pH Urine WBC (Auto) Urine Creatinine Urine Total Protein Fluid Total Protein Vancomycin Trough Rheumatoid Factor Complement C4 Miscellaneous Test Crossmatch 12/10/16 12/10/16 12/10/16 11:58 17:29 23:52 WBC RBC Hgb Hct MCV MCH MCHC RDW Plt Count Lymph % (Auto) Roberts % (Auto) Lymph # Roberts # Baso # Seg Neutrophils % Seg Neuts % (Manual) Lymphocytes % (Manual) Monocytes % (Manual) Eosinophils % (Manual) Basophils % (Manual) Nucleated RBC % Seg Neutrophils # Seg Neutrophils # Man Lymphocytes # (Manual) Monocytes # (Manual) Eosinophils # (Manual) Basophils # (Manual) PT INR Fibrinogen dRVVT Confirm Interp Factor V Activity POC ABG pH POC ABG pCO2 POC ABG pO2 ABG pO2 ABG HCO3 ABG Base Excess ABG Hemoglobin Oxyhemoglobin Sodium Potassium Chloride Carbon Dioxide BUN Creatinine Glucose POC Glucose 144 H 163 H 125 H Lactic Acid Calcium Ionized Calcium Phosphorus Magnesium Direct Bilirubin AST ALT Alkaline Phosphatase Lactate Dehydrogenase Troponin T C-Reactive Protein Total Protein Albumin Prealbumin Triglycerides Cholesterol LDL Cholesterol Direct HDL Cholesterol 25-OH Vitamin D Total PTH Intact Urine pH Urine WBC (Auto) Urine Creatinine Urine Total Protein Fluid Total Protein Vancomycin Trough Rheumatoid Factor Complement C4 Miscellaneous Test Crossmatch 12/11/16 12/11/16 12/11/16 05:38 06:30 06:30 WBC 14.4 H RBC 2.76 L Hgb 7.7 L Hct 23.4 L MCV MCH MCHC RDW 17.2 H Plt Count Lymph % (Auto) Roberts % (Auto) 8.8 H Lymph # Roberts # 1.3 H Baso # Seg Neutrophils % 72.5 H Seg Neuts % (Manual) Lymphocytes % (Manual) Monocytes % (Manual) Eosinophils % (Manual) Basophils % (Manual) Nucleated RBC % Seg Neutrophils # 10.5 H Seg Neutrophils # Man Lymphocytes # (Manual) Monocytes # (Manual) Eosinophils # (Manual) Basophils # (Manual) PT INR Fibrinogen dRVVT Confirm Interp Factor V Activity POC ABG pH POC ABG pCO2 POC ABG pO2 ABG pO2 ABG HCO3 ABG Base Excess ABG Hemoglobin Oxyhemoglobin Sodium Potassium Chloride Carbon Dioxide BUN 43 H Creatinine Glucose 124 H POC Glucose 141 H Lactic Acid Calcium 8.3 L Ionized Calcium Phosphorus Magnesium 1.60 L Direct Bilirubin AST ALT Alkaline Phosphatase Lactate Dehydrogenase Troponin T C-Reactive Protein Total Protein Albumin Prealbumin Triglycerides Cholesterol LDL Cholesterol Direct HDL Cholesterol 25-OH Vitamin D Total PTH Intact Urine pH Urine WBC (Auto) Urine Creatinine Urine Total Protein Fluid Total Protein Vancomycin Trough Rheumatoid Factor Complement C4 Miscellaneous Test Crossmatch 12/11/16 12/11/16 12/11/16 11:15 17:59 23:48 WBC RBC Hgb Hct MCV MCH MCHC RDW Plt Count Lymph % (Auto) Roberts % (Auto) Lymph # Roberts # Baso # Seg Neutrophils % Seg Neuts % (Manual) Lymphocytes % (Manual) Monocytes % (Manual) Eosinophils % (Manual) Basophils % (Manual) Nucleated RBC % Seg Neutrophils # Seg Neutrophils # Man Lymphocytes # (Manual) Monocytes # (Manual) Eosinophils # (Manual) Basophils # (Manual) PT INR Fibrinogen dRVVT Confirm Interp Factor V Activity POC ABG pH POC ABG pCO2 POC ABG pO2 ABG pO2 ABG HCO3 ABG Base Excess ABG Hemoglobin Oxyhemoglobin Sodium Potassium Chloride Carbon Dioxide BUN Creatinine Glucose POC Glucose 188 H 106 H 119 H Lactic Acid Calcium Ionized Calcium Phosphorus Magnesium Direct Bilirubin AST ALT Alkaline Phosphatase Lactate Dehydrogenase Troponin T C-Reactive Protein Total Protein Albumin Prealbumin Triglycerides Cholesterol LDL Cholesterol Direct HDL Cholesterol 25-OH Vitamin D Total PTH Intact Urine pH Urine WBC (Auto) Urine Creatinine Urine Total Protein Fluid Total Protein Vancomycin Trough Rheumatoid Factor Complement C4 Miscellaneous Test Crossmatch 12/12/16 12/12/16 12/12/16 05:00 06:01 12:20 WBC 16.7 H RBC 2.87 L Hgb 8.0 L Hct 24.2 L MCV MCH MCHC RDW 17.6 H Plt Count Lymph % (Auto) Roberts % (Auto) Lymph # Roberts # 1.2 H Baso # Seg Neutrophils % 75.3 H Seg Neuts % (Manual) Lymphocytes % (Manual) Monocytes % (Manual) Eosinophils % (Manual) Basophils % (Manual) Nucleated RBC % Seg Neutrophils # 12.6 H Seg Neutrophils # Man Lymphocytes # (Manual) Monocytes # (Manual) Eosinophils # (Manual) Basophils # (Manual) PT INR Fibrinogen dRVVT Confirm Interp Factor V Activity POC ABG pH POC ABG pCO2 POC ABG pO2 ABG pO2 ABG HCO3 ABG Base Excess ABG Hemoglobin Oxyhemoglobin Sodium Potassium Chloride Carbon Dioxide BUN Creatinine Glucose POC Glucose 134 H 149 H Lactic Acid Calcium Ionized Calcium Phosphorus Magnesium Direct Bilirubin AST ALT Alkaline Phosphatase Lactate Dehydrogenase Troponin T C-Reactive Protein Total Protein Albumin Prealbumin Triglycerides Cholesterol LDL Cholesterol Direct HDL Cholesterol 25-OH Vitamin D Total PTH Intact Urine pH Urine WBC (Auto) Urine Creatinine Urine Total Protein Fluid Total Protein Vancomycin Trough Rheumatoid Factor Complement C4 Miscellaneous Test Crossmatch 12/12/16 12/12/16 12/12/16 17:38 23:01 Unknown WBC RBC Hgb Hct MCV MCH MCHC RDW Plt Count Lymph % (Auto) Roberts % (Auto) Lymph # Roberts # Baso # Seg Neutrophils % Seg Neuts % (Manual) Lymphocytes % (Manual) Monocytes % (Manual) Eosinophils % (Manual) Basophils % (Manual) Nucleated RBC % Seg Neutrophils # Seg Neutrophils # Man Lymphocytes # (Manual) Monocytes # (Manual) Eosinophils # (Manual) Basophils # (Manual) PT INR Fibrinogen dRVVT Confirm Interp Factor V Activity POC ABG pH POC ABG pCO2 POC ABG pO2 ABG pO2 ABG HCO3 ABG Base Excess ABG Hemoglobin Oxyhemoglobin Sodium Potassium Chloride Carbon Dioxide BUN 60 H Creatinine 1.3 H Glucose 126 H POC Glucose 127 H 144 H Lactic Acid Calcium Ionized Calcium Phosphorus Magnesium Direct Bilirubin AST ALT Alkaline Phosphatase Lactate Dehydrogenase Troponin T C-Reactive Protein Total Protein Albumin Prealbumin Triglycerides Cholesterol LDL Cholesterol Direct HDL Cholesterol 25-OH Vitamin D Total PTH Intact Urine pH Urine WBC (Auto) Urine Creatinine Urine Total Protein Fluid Total Protein Vancomycin Trough Rheumatoid Factor Complement C4 Miscellaneous Test Crossmatch 12/13/16 12/13/16 12/13/16 04:00 04:00 05:19 WBC 18.7 H RBC 2.89 L Hgb 8.3 L Hct 24.6 L MCV MCH MCHC RDW 17.5 H Plt Count Lymph % (Auto) Roberts % (Auto) Lymph # Roberts # 1.3 H Baso # Seg Neutrophils % 71.5 H Seg Neuts % (Manual) Lymphocytes % (Manual) Monocytes % (Manual) Eosinophils % (Manual) Basophils % (Manual) Nucleated RBC % Seg Neutrophils # 13.4 H Seg Neutrophils # Man Lymphocytes # (Manual) Monocytes # (Manual) Eosinophils # (Manual) Basophils # (Manual) PT INR Fibrinogen dRVVT Confirm Interp Factor V Activity POC ABG pH POC ABG pCO2 POC ABG pO2 ABG pO2 ABG HCO3 ABG Base Excess ABG Hemoglobin Oxyhemoglobin Sodium Potassium Chloride Carbon Dioxide BUN 73 H Creatinine 1.5 H Glucose 141 H POC Glucose 171 H Lactic Acid Calcium Ionized Calcium Phosphorus Magnesium Direct Bilirubin AST ALT Alkaline Phosphatase Lactate Dehydrogenase Troponin T C-Reactive Protein Total Protein Albumin Prealbumin Triglycerides Cholesterol LDL Cholesterol Direct HDL Cholesterol 25-OH Vitamin D Total PTH Intact Urine pH Urine WBC (Auto) Urine Creatinine Urine Total Protein Fluid Total Protein Vancomycin Trough Rheumatoid Factor Complement C4 Miscellaneous Test Crossmatch 12/13/16 12/13/16 12/14/16 12:28 16:48 00:01 WBC RBC Hgb Hct MCV MCH MCHC RDW Plt Count Lymph % (Auto) Roberts % (Auto) Lymph # Roberts # Baso # Seg Neutrophils % Seg Neuts % (Manual) Lymphocytes % (Manual) Monocytes % (Manual) Eosinophils % (Manual) Basophils % (Manual) Nucleated RBC % Seg Neutrophils # Seg Neutrophils # Man Lymphocytes # (Manual) Monocytes # (Manual) Eosinophils # (Manual) Basophils # (Manual) PT INR Fibrinogen dRVVT Confirm Interp Factor V Activity POC ABG pH POC ABG pCO2 POC ABG pO2 ABG pO2 ABG HCO3 ABG Base Excess ABG Hemoglobin Oxyhemoglobin Sodium Potassium Chloride Carbon Dioxide BUN Creatinine Glucose POC Glucose 206 H 173 H 139 H Lactic Acid Calcium Ionized Calcium Phosphorus Magnesium Direct Bilirubin AST ALT Alkaline Phosphatase Lactate Dehydrogenase Troponin T C-Reactive Protein Total Protein Albumin Prealbumin Triglycerides Cholesterol LDL Cholesterol Direct HDL Cholesterol 25-OH Vitamin D Total PTH Intact Urine pH Urine WBC (Auto) Urine Creatinine Urine Total Protein Fluid Total Protein Vancomycin Trough Rheumatoid Factor Complement C4 Miscellaneous Test Crossmatch 12/14/16 12/14/16 12/14/16 05:16 06:10 11:17 WBC RBC Hgb Hct MCV MCH MCHC RDW Plt Count Lymph % (Auto) Roberts % (Auto) Lymph # Roberts # Baso # Seg Neutrophils % Seg Neuts % (Manual) Lymphocytes % (Manual) Monocytes % (Manual) Eosinophils % (Manual) Basophils % (Manual) Nucleated RBC % Seg Neutrophils # Seg Neutrophils # Man Lymphocytes # (Manual) Monocytes # (Manual) Eosinophils # (Manual) Basophils # (Manual) PT INR Fibrinogen dRVVT Confirm Interp Factor V Activity POC ABG pH POC ABG pCO2 POC ABG pO2 ABG pO2 ABG HCO3 ABG Base Excess ABG Hemoglobin Oxyhemoglobin Sodium Potassium Chloride Carbon Dioxide BUN 57 H Creatinine 1.4 H Glucose 135 H POC Glucose 158 H 137 H Lactic Acid Calcium Ionized Calcium Phosphorus Magnesium Direct Bilirubin AST ALT Alkaline Phosphatase Lactate Dehydrogenase Troponin T C-Reactive Protein Total Protein Albumin Prealbumin Triglycerides Cholesterol LDL Cholesterol Direct HDL Cholesterol 25-OH Vitamin D Total PTH Intact Urine pH Urine WBC (Auto) Urine Creatinine Urine Total Protein Fluid Total Protein Vancomycin Trough Rheumatoid Factor Complement C4 Miscellaneous Test Crossmatch 12/14/16 12/14/16 12/15/16 17:52 23:27 04:00 WBC RBC Hgb Hct MCV MCH MCHC RDW Plt Count Lymph % (Auto) Roberts % (Auto) Lymph # Roberts # Baso # Seg Neutrophils % Seg Neuts % (Manual) Lymphocytes % (Manual) Monocytes % (Manual) Eosinophils % (Manual) Basophils % (Manual) Nucleated RBC % Seg Neutrophils # Seg Neutrophils # Man Lymphocytes # (Manual) Monocytes # (Manual) Eosinophils # (Manual) Basophils # (Manual) PT INR Fibrinogen dRVVT Confirm Interp Factor V Activity POC ABG pH POC ABG pCO2 POC ABG pO2 ABG pO2 ABG HCO3 ABG Base Excess ABG Hemoglobin Oxyhemoglobin Sodium Potassium Chloride 97.9 L Carbon Dioxide BUN 75 H Creatinine 1.6 H Glucose 122 H POC Glucose 149 H 163 H Lactic Acid Calcium Ionized Calcium Phosphorus 5.20 H Magnesium Direct Bilirubin AST ALT Alkaline Phosphatase Lactate Dehydrogenase Troponin T C-Reactive Protein Total Protein Albumin Prealbumin Triglycerides Cholesterol LDL Cholesterol Direct HDL Cholesterol 25-OH Vitamin D Total PTH Intact Urine pH Urine WBC (Auto) Urine Creatinine Urine Total Protein Fluid Total Protein Vancomycin Trough Rheumatoid Factor Complement C4 Miscellaneous Test Crossmatch 12/15/16 12/15/16 12/15/16 05:50 11:24 17:01 WBC RBC Hgb Hct MCV MCH MCHC RDW Plt Count Lymph % (Auto) Roberts % (Auto) Lymph # Roberts # Baso # Seg Neutrophils % Seg Neuts % (Manual) Lymphocytes % (Manual) Monocytes % (Manual) Eosinophils % (Manual) Basophils % (Manual) Nucleated RBC % Seg Neutrophils # Seg Neutrophils # Man Lymphocytes # (Manual) Monocytes # (Manual) Eosinophils # (Manual) Basophils # (Manual) PT INR Fibrinogen dRVVT Confirm Interp Factor V Activity POC ABG pH POC ABG pCO2 POC ABG pO2 ABG pO2 ABG HCO3 ABG Base Excess ABG Hemoglobin Oxyhemoglobin Sodium Potassium Chloride Carbon Dioxide BUN Creatinine Glucose POC Glucose 150 H 146 H 167 H Lactic Acid Calcium Ionized Calcium Phosphorus Magnesium Direct Bilirubin AST ALT Alkaline Phosphatase Lactate Dehydrogenase Troponin T C-Reactive Protein Total Protein Albumin Prealbumin Triglycerides Cholesterol LDL Cholesterol Direct HDL Cholesterol 25-OH Vitamin D Total PTH Intact Urine pH Urine WBC (Auto) Urine Creatinine Urine Total Protein Fluid Total Protein Vancomycin Trough Rheumatoid Factor Complement C4 Miscellaneous Test Crossmatch 12/15/16 12/16/16 12/16/16 23:34 05:25 11:24 WBC RBC Hgb Hct MCV MCH MCHC RDW Plt Count Lymph % (Auto) Roberts % (Auto) Lymph # Roberts # Baso # Seg Neutrophils % Seg Neuts % (Manual) Lymphocytes % (Manual) Monocytes % (Manual) Eosinophils % (Manual) Basophils % (Manual) Nucleated RBC % Seg Neutrophils # Seg Neutrophils # Man Lymphocytes # (Manual) Monocytes # (Manual) Eosinophils # (Manual) Basophils # (Manual) PT INR Fibrinogen dRVVT Confirm Interp Factor V Activity POC ABG pH POC ABG pCO2 POC ABG pO2 ABG pO2 ABG HCO3 ABG Base Excess ABG Hemoglobin Oxyhemoglobin Sodium Potassium Chloride Carbon Dioxide BUN Creatinine Glucose POC Glucose 127 H 139 H 165 H Lactic Acid Calcium Ionized Calcium Phosphorus Magnesium Direct Bilirubin AST ALT Alkaline Phosphatase Lactate Dehydrogenase Troponin T C-Reactive Protein Total Protein Albumin Prealbumin Triglycerides Cholesterol LDL Cholesterol Direct HDL Cholesterol 25-OH Vitamin D Total PTH Intact Urine pH Urine WBC (Auto) Urine Creatinine Urine Total Protein Fluid Total Protein Vancomycin Trough Rheumatoid Factor Complement C4 Miscellaneous Test Crossmatch 12/16/16 12/16/16 12/16/16 15:30 16:25 17:31 WBC 17.8 H RBC 2.38 L Hgb 6.4 L Hct 20.3 L MCV MCH 27 L MCHC RDW 17.4 H Plt Count Lymph % (Auto) Roberts % (Auto) Lymph # Roberts # Baso # Seg Neutrophils % Seg Neuts % (Manual) Lymphocytes % (Manual) Monocytes % (Manual) 10.0 H Eosinophils % (Manual) Basophils % (Manual) Nucleated RBC % Seg Neutrophils # Seg Neutrophils # Man 8.5 H Lymphocytes # (Manual) Monocytes # (Manual) 1.8 H Eosinophils # (Manual) Basophils # (Manual) PT INR Fibrinogen dRVVT Confirm Interp Factor V Activity POC ABG pH POC ABG pCO2 POC ABG pO2 ABG pO2 ABG HCO3 ABG Base Excess ABG Hemoglobin Oxyhemoglobin Sodium Potassium Chloride Carbon Dioxide BUN Creatinine Glucose POC Glucose 176 H Lactic Acid Calcium Ionized Calcium Phosphorus Magnesium Direct Bilirubin AST ALT Alkaline Phosphatase Lactate Dehydrogenase Troponin T C-Reactive Protein Total Protein Albumin Prealbumin Triglycerides Cholesterol LDL Cholesterol Direct HDL Cholesterol 25-OH Vitamin D Total PTH Intact Urine pH Urine WBC (Auto) Urine Creatinine Urine Total Protein Fluid Total Protein Vancomycin Trough Rheumatoid Factor Complement C4 Miscellaneous Test Crossmatch See Detail 12/17/16 12/17/16 12/17/16 00:14 04:00 05:00 WBC 20.0 H RBC 2.99 L Hgb 8.5 L Hct 25.7 L MCV MCH MCHC RDW 17.2 H Plt Count Lymph % (Auto) Roberts % (Auto) Lymph # Roberts # Baso # Seg Neutrophils % Seg Neuts % (Manual) Lymphocytes % (Manual) Monocytes % (Manual) Eosinophils % (Manual) Basophils % (Manual) Nucleated RBC % Seg Neutrophils # Seg Neutrophils # Man Lymphocytes # (Manual) Monocytes # (Manual) Eosinophils # (Manual) Basophils # (Manual) PT INR Fibrinogen dRVVT Confirm Interp Factor V Activity POC ABG pH POC ABG pCO2 POC ABG pO2 ABG pO2 ABG HCO3 ABG Base Excess ABG Hemoglobin Oxyhemoglobin Sodium Potassium Chloride 97.7 L Carbon Dioxide BUN 73 H Creatinine 1.7 H Glucose 136 H POC Glucose 148 H Lactic Acid Calcium Ionized Calcium Phosphorus 2.20 L Magnesium 2.70 H Direct Bilirubin AST ALT Alkaline Phosphatase Lactate Dehydrogenase Troponin T C-Reactive Protein Total Protein Albumin Prealbumin Triglycerides Cholesterol LDL Cholesterol Direct HDL Cholesterol 25-OH Vitamin D Total PTH Intact Urine pH Urine WBC (Auto) Urine Creatinine Urine Total Protein Fluid Total Protein Vancomycin Trough Rheumatoid Factor Complement C4 Miscellaneous Test Crossmatch 12/17/16 12/17/16 12/17/16 05:39 12:50 16:32 WBC RBC Hgb Hct MCV MCH MCHC RDW Plt Count Lymph % (Auto) Roberts % (Auto) Lymph # Roberts # Baso # Seg Neutrophils % Seg Neuts % (Manual) Lymphocytes % (Manual) Monocytes % (Manual) Eosinophils % (Manual) Basophils % (Manual) Nucleated RBC % Seg Neutrophils # Seg Neutrophils # Man Lymphocytes # (Manual) Monocytes # (Manual) Eosinophils # (Manual) Basophils # (Manual) PT INR Fibrinogen dRVVT Confirm Interp Factor V Activity POC ABG pH POC ABG pCO2 POC ABG pO2 ABG pO2 ABG HCO3 ABG Base Excess ABG Hemoglobin Oxyhemoglobin Sodium Potassium Chloride Carbon Dioxide BUN Creatinine Glucose POC Glucose 162 H 146 H 169 H Lactic Acid Calcium Ionized Calcium Phosphorus Magnesium Direct Bilirubin AST ALT Alkaline Phosphatase Lactate Dehydrogenase Troponin T C-Reactive Protein Total Protein Albumin Prealbumin Triglycerides Cholesterol LDL Cholesterol Direct HDL Cholesterol 25-OH Vitamin D Total PTH Intact Urine pH Urine WBC (Auto) Urine Creatinine Urine Total Protein Fluid Total Protein Vancomycin Trough Rheumatoid Factor Complement C4 Miscellaneous Test Crossmatch 12/17/16 12/18/16 12/18/16 23:57 05:00 05:32 WBC RBC Hgb Hct MCV MCH MCHC RDW Plt Count Lymph % (Auto) Roberts % (Auto) Lymph # Roberts # Baso # Seg Neutrophils % Seg Neuts % (Manual) Lymphocytes % (Manual) Monocytes % (Manual) Eosinophils % (Manual) Basophils % (Manual) Nucleated RBC % Seg Neutrophils # Seg Neutrophils # Man Lymphocytes # (Manual) Monocytes # (Manual) Eosinophils # (Manual) Basophils # (Manual) PT INR Fibrinogen dRVVT Confirm Interp Factor V Activity POC ABG pH POC ABG pCO2 POC ABG pO2 ABG pO2 ABG HCO3 ABG Base Excess ABG Hemoglobin Oxyhemoglobin Sodium Potassium Chloride 97.0 L Carbon Dioxide BUN 63 H Creatinine 1.4 H Glucose 174 H POC Glucose 145 H 201 H Lactic Acid Calcium Ionized Calcium Phosphorus 1.70 L D Magnesium Direct Bilirubin AST ALT Alkaline Phosphatase 257 H Lactate Dehydrogenase Troponin T C-Reactive Protein Total Protein 5.9 L Albumin 1.8 L Prealbumin Triglycerides Cholesterol LDL Cholesterol Direct HDL Cholesterol 25-OH Vitamin D Total PTH Intact Urine pH Urine WBC (Auto) Urine Creatinine Urine Total Protein Fluid Total Protein Vancomycin Trough Rheumatoid Factor Complement C4 Miscellaneous Test Crossmatch 12/18/16 12/18/16 12/18/16 11:43 16:52 23:52 WBC RBC Hgb Hct MCV MCH MCHC RDW Plt Count Lymph % (Auto) Roberts % (Auto) Lymph # Roberts # Baso # Seg Neutrophils % Seg Neuts % (Manual) Lymphocytes % (Manual) Monocytes % (Manual) Eosinophils % (Manual) Basophils % (Manual) Nucleated RBC % Seg Neutrophils # Seg Neutrophils # Man Lymphocytes # (Manual) Monocytes # (Manual) Eosinophils # (Manual) Basophils # (Manual) PT INR Fibrinogen dRVVT Confirm Interp Factor V Activity POC ABG pH POC ABG pCO2 POC ABG pO2 ABG pO2 ABG HCO3 ABG Base Excess ABG Hemoglobin Oxyhemoglobin Sodium Potassium Chloride Carbon Dioxide BUN Creatinine Glucose POC Glucose 177 H 110 H 162 H Lactic Acid Calcium Ionized Calcium Phosphorus Magnesium Direct Bilirubin AST ALT Alkaline Phosphatase Lactate Dehydrogenase Troponin T C-Reactive Protein Total Protein Albumin Prealbumin Triglycerides Cholesterol LDL Cholesterol Direct HDL Cholesterol 25-OH Vitamin D Total PTH Intact Urine pH Urine WBC (Auto) Urine Creatinine Urine Total Protein Fluid Total Protein Vancomycin Trough Rheumatoid Factor Complement C4 Miscellaneous Test Crossmatch 12/19/16 12/19/16 12/19/16 05:02 05:24 09:30 WBC 20.1 H RBC 2.73 L Hgb 7.6 L Hct 23.6 L MCV MCH MCHC RDW 17.6 H Plt Count Lymph % (Auto) Roberts % (Auto) Lymph # Roberts # Baso # Seg Neutrophils % Seg Neuts % (Manual) Lymphocytes % (Manual) 13.0 L Monocytes % (Manual) Eosinophils % (Manual) Basophils % (Manual) Nucleated RBC % 1.0 H Seg Neutrophils # Seg Neutrophils # Man 12.9 H Lymphocytes # (Manual) Monocytes # (Manual) 1.4 H Eosinophils # (Manual) Basophils # (Manual) 0.2 H PT INR Fibrinogen dRVVT Confirm Interp Factor V Activity POC ABG pH POC ABG pCO2 POC ABG pO2 ABG pO2 ABG HCO3 ABG Base Excess ABG Hemoglobin Oxyhemoglobin Sodium Potassium Chloride 97.8 L Carbon Dioxide BUN 84 H Creatinine 1.6 H Glucose 133 H POC Glucose 134 H Lactic Acid Calcium Ionized Calcium Phosphorus Magnesium Direct Bilirubin AST ALT Alkaline Phosphatase Lactate Dehydrogenase Troponin T C-Reactive Protein Total Protein Albumin Prealbumin Triglycerides Cholesterol LDL Cholesterol Direct HDL Cholesterol 25-OH Vitamin D Total PTH Intact Urine pH Urine WBC (Auto) Urine Creatinine Urine Total Protein Fluid Total Protein Vancomycin Trough Rheumatoid Factor Complement C4 Miscellaneous Test Crossmatch 12/19/16 12/19/16 12/19/16 09:36 11:12 18:29 WBC RBC Hgb Hct MCV MCH MCHC RDW Plt Count Lymph % (Auto) Roberts % (Auto) Lymph # Roberts # Baso # Seg Neutrophils % Seg Neuts % (Manual) Lymphocytes % (Manual) Monocytes % (Manual) Eosinophils % (Manual) Basophils % (Manual) Nucleated RBC % Seg Neutrophils # Seg Neutrophils # Man Lymphocytes # (Manual) Monocytes # (Manual) Eosinophils # (Manual) Basophils # (Manual) PT INR Fibrinogen dRVVT Confirm Interp Factor V Activity POC ABG pH 7.503 H POC ABG pCO2 30.1 L POC ABG pO2 ABG pO2 ABG HCO3 ABG Base Excess ABG Hemoglobin Oxyhemoglobin Sodium Potassium Chloride Carbon Dioxide BUN Creatinine Glucose POC Glucose 138 H 156 H Lactic Acid Calcium Ionized Calcium Phosphorus Magnesium Direct Bilirubin AST ALT Alkaline Phosphatase Lactate Dehydrogenase Troponin T C-Reactive Protein Total Protein Albumin Prealbumin Triglycerides Cholesterol LDL Cholesterol Direct HDL Cholesterol 25-OH Vitamin D Total PTH Intact Urine pH Urine WBC (Auto) Urine Creatinine Urine Total Protein Fluid Total Protein Vancomycin Trough Rheumatoid Factor Complement C4 Miscellaneous Test Crossmatch 12/20/16 12/20/16 12/20/16 00:03 06:17 07:07 WBC RBC Hgb Hct MCV MCH MCHC RDW Plt Count Lymph % (Auto) Roberts % (Auto) Lymph # Roberts # Baso # Seg Neutrophils % Seg Neuts % (Manual) Lymphocytes % (Manual) Monocytes % (Manual) Eosinophils % (Manual) Basophils % (Manual) Nucleated RBC % Seg Neutrophils # Seg Neutrophils # Man Lymphocytes # (Manual) Monocytes # (Manual) Eosinophils # (Manual) Basophils # (Manual) PT INR Fibrinogen dRVVT Confirm Interp Factor V Activity POC ABG pH POC ABG pCO2 POC ABG pO2 ABG pO2 ABG HCO3 ABG Base Excess ABG Hemoglobin Oxyhemoglobin Sodium Potassium Chloride 97.1 L Carbon Dioxide 20 L BUN 97 H Creatinine 1.8 H Glucose 153 H POC Glucose 152 H 175 H Lactic Acid Calcium Ionized Calcium Phosphorus Magnesium Direct Bilirubin AST ALT Alkaline Phosphatase Lactate Dehydrogenase Troponin T C-Reactive Protein Total Protein Albumin Prealbumin Triglycerides Cholesterol LDL Cholesterol Direct HDL Cholesterol 25-OH Vitamin D Total PTH Intact Urine pH Urine WBC (Auto) Urine Creatinine Urine Total Protein Fluid Total Protein Vancomycin Trough Rheumatoid Factor Complement C4 Miscellaneous Test Crossmatch 12/20/16 12/20/16 12/20/16 12:00 17:42 23:53 WBC RBC Hgb Hct MCV MCH MCHC RDW Plt Count Lymph % (Auto) Roberts % (Auto) Lymph # Roberts # Baso # Seg Neutrophils % Seg Neuts % (Manual) Lymphocytes % (Manual) Monocytes % (Manual) Eosinophils % (Manual) Basophils % (Manual) Nucleated RBC % Seg Neutrophils # Seg Neutrophils # Man Lymphocytes # (Manual) Monocytes # (Manual) Eosinophils # (Manual) Basophils # (Manual) PT INR Fibrinogen dRVVT Confirm Interp Factor V Activity POC ABG pH POC ABG pCO2 POC ABG pO2 ABG pO2 ABG HCO3 ABG Base Excess ABG Hemoglobin Oxyhemoglobin Sodium Potassium Chloride Carbon Dioxide BUN Creatinine Glucose POC Glucose 141 H 156 H 132 H Lactic Acid Calcium Ionized Calcium Phosphorus Magnesium Direct Bilirubin AST ALT Alkaline Phosphatase Lactate Dehydrogenase Troponin T C-Reactive Protein Total Protein Albumin Prealbumin Triglycerides Cholesterol LDL Cholesterol Direct HDL Cholesterol 25-OH Vitamin D Total PTH Intact Urine pH Urine WBC (Auto) Urine Creatinine Urine Total Protein Fluid Total Protein Vancomycin Trough Rheumatoid Factor Complement C4 Miscellaneous Test Crossmatch 12/21/16 12/21/16 12/21/16 05:49 08:50 12:19 WBC RBC Hgb Hct MCV MCH MCHC RDW Plt Count Lymph % (Auto) Roberts % (Auto) Lymph # Roberts # Baso # Seg Neutrophils % Seg Neuts % (Manual) Lymphocytes % (Manual) Monocytes % (Manual) Eosinophils % (Manual) Basophils % (Manual) Nucleated RBC % Seg Neutrophils # Seg Neutrophils # Man Lymphocytes # (Manual) Monocytes # (Manual) Eosinophils # (Manual) Basophils # (Manual) PT INR Fibrinogen dRVVT Confirm Interp Factor V Activity POC ABG pH POC ABG pCO2 POC ABG pO2 ABG pO2 ABG HCO3 ABG Base Excess ABG Hemoglobin Oxyhemoglobin Sodium Potassium 5.2 H D Chloride Carbon Dioxide BUN 63 H Creatinine Glucose 122 H POC Glucose 132 H 136 H Lactic Acid Calcium 8.3 L Ionized Calcium Phosphorus Magnesium Direct Bilirubin AST ALT Alkaline Phosphatase Lactate Dehydrogenase Troponin T C-Reactive Protein Total Protein Albumin Prealbumin Triglycerides Cholesterol LDL Cholesterol Direct HDL Cholesterol 25-OH Vitamin D Total PTH Intact Urine pH Urine WBC (Auto) Urine Creatinine Urine Total Protein Fluid Total Protein Vancomycin Trough Rheumatoid Factor Complement C4 Miscellaneous Test Crossmatch 12/21/16 12/21/16 12/22/16 17:22 23:58 05:49 WBC RBC Hgb Hct MCV MCH MCHC RDW Plt Count Lymph % (Auto) Roberts % (Auto) Lymph # Roberts # Baso # Seg Neutrophils % Seg Neuts % (Manual) Lymphocytes % (Manual) Monocytes % (Manual) Eosinophils % (Manual) Basophils % (Manual) Nucleated RBC % Seg Neutrophils # Seg Neutrophils # Man Lymphocytes # (Manual) Monocytes # (Manual) Eosinophils # (Manual) Basophils # (Manual) PT INR Fibrinogen dRVVT Confirm Interp Factor V Activity POC ABG pH POC ABG pCO2 POC ABG pO2 ABG pO2 ABG HCO3 ABG Base Excess ABG Hemoglobin Oxyhemoglobin Sodium Potassium Chloride Carbon Dioxide BUN Creatinine Glucose POC Glucose 135 H 149 H 140 H Lactic Acid Calcium Ionized Calcium Phosphorus Magnesium Direct Bilirubin AST ALT Alkaline Phosphatase Lactate Dehydrogenase Troponin T C-Reactive Protein Total Protein Albumin Prealbumin Triglycerides Cholesterol LDL Cholesterol Direct HDL Cholesterol 25-OH Vitamin D Total PTH Intact Urine pH Urine WBC (Auto) Urine Creatinine Urine Total Protein Fluid Total Protein Vancomycin Trough Rheumatoid Factor Complement C4 Miscellaneous Test Crossmatch 12/22/16 12/22/16 12/22/16 06:10 11:17 17:31 WBC RBC Hgb Hct MCV MCH MCHC RDW Plt Count Lymph % (Auto) Roberts % (Auto) Lymph # Roberts # Baso # Seg Neutrophils % Seg Neuts % (Manual) Lymphocytes % (Manual) Monocytes % (Manual) Eosinophils % (Manual) Basophils % (Manual) Nucleated RBC % Seg Neutrophils # Seg Neutrophils # Man Lymphocytes # (Manual) Monocytes # (Manual) Eosinophils # (Manual) Basophils # (Manual) PT INR Fibrinogen dRVVT Confirm Interp Factor V Activity POC ABG pH POC ABG pCO2 POC ABG pO2 ABG pO2 ABG HCO3 ABG Base Excess ABG Hemoglobin Oxyhemoglobin Sodium Potassium Chloride Carbon Dioxide BUN 76 H Creatinine 1.5 H Glucose 241 H POC Glucose 193 H 148 H Lactic Acid Calcium Ionized Calcium Phosphorus Magnesium Direct Bilirubin AST ALT Alkaline Phosphatase Lactate Dehydrogenase Troponin T C-Reactive Protein Total Protein Albumin Prealbumin Triglycerides Cholesterol LDL Cholesterol Direct HDL Cholesterol 25-OH Vitamin D Total PTH Intact Urine pH Urine WBC (Auto) Urine Creatinine Urine Total Protein Fluid Total Protein Vancomycin Trough Rheumatoid Factor Complement C4 Miscellaneous Test Crossmatch 12/22/16 12/23/16 12/23/16 23:58 05:00 05:26 WBC RBC Hgb Hct MCV MCH MCHC RDW Plt Count Lymph % (Auto) Roberts % (Auto) Lymph # Roberts # Baso # Seg Neutrophils % Seg Neuts % (Manual) Lymphocytes % (Manual) Monocytes % (Manual) Eosinophils % (Manual) Basophils % (Manual) Nucleated RBC % Seg Neutrophils # Seg Neutrophils # Man Lymphocytes # (Manual) Monocytes # (Manual) Eosinophils # (Manual) Basophils # (Manual) PT INR Fibrinogen dRVVT Confirm Interp Factor V Activity POC ABG pH POC ABG pCO2 POC ABG pO2 ABG pO2 ABG HCO3 ABG Base Excess ABG Hemoglobin Oxyhemoglobin Sodium Potassium Chloride Carbon Dioxide BUN 49 H Creatinine Glucose 143 H POC Glucose 165 H 154 H Lactic Acid Calcium 8.2 L Ionized Calcium Phosphorus Magnesium 1.60 L Direct Bilirubin AST ALT Alkaline Phosphatase Lactate Dehydrogenase Troponin T C-Reactive Protein Total Protein Albumin Prealbumin Triglycerides Cholesterol LDL Cholesterol Direct HDL Cholesterol 25-OH Vitamin D Total PTH Intact Urine pH Urine WBC (Auto) Urine Creatinine Urine Total Protein Fluid Total Protein Vancomycin Trough Rheumatoid Factor Complement C4 Miscellaneous Test Crossmatch 12/23/16 12/23/16 12/24/16 12:35 17:01 00:01 WBC RBC Hgb Hct MCV MCH MCHC RDW Plt Count Lymph % (Auto) Roberts % (Auto) Lymph # Roberts # Baso # Seg Neutrophils % Seg Neuts % (Manual) Lymphocytes % (Manual) Monocytes % (Manual) Eosinophils % (Manual) Basophils % (Manual) Nucleated RBC % Seg Neutrophils # Seg Neutrophils # Man Lymphocytes # (Manual) Monocytes # (Manual) Eosinophils # (Manual) Basophils # (Manual) PT INR Fibrinogen dRVVT Confirm Interp Factor V Activity POC ABG pH POC ABG pCO2 POC ABG pO2 ABG pO2 ABG HCO3 ABG Base Excess ABG Hemoglobin Oxyhemoglobin Sodium Potassium Chloride Carbon Dioxide BUN Creatinine Glucose POC Glucose 164 H 149 H 135 H Lactic Acid Calcium Ionized Calcium Phosphorus Magnesium Direct Bilirubin AST ALT Alkaline Phosphatase Lactate Dehydrogenase Troponin T C-Reactive Protein Total Protein Albumin Prealbumin Triglycerides Cholesterol LDL Cholesterol Direct HDL Cholesterol 25-OH Vitamin D Total PTH Intact Urine pH Urine WBC (Auto) Urine Creatinine Urine Total Protein Fluid Total Protein Vancomycin Trough Rheumatoid Factor Complement C4 Miscellaneous Test Crossmatch 12/24/16 12/24/16 12/24/16 05:41 07:01 11:38 WBC RBC Hgb Hct MCV MCH MCHC RDW Plt Count Lymph % (Auto) Roberts % (Auto) Lymph # Roberts # Baso # Seg Neutrophils % Seg Neuts % (Manual) Lymphocytes % (Manual) Monocytes % (Manual) Eosinophils % (Manual) Basophils % (Manual) Nucleated RBC % Seg Neutrophils # Seg Neutrophils # Man Lymphocytes # (Manual) Monocytes # (Manual) Eosinophils # (Manual) Basophils # (Manual) PT INR Fibrinogen dRVVT Confirm Interp Factor V Activity POC ABG pH POC ABG pCO2 POC ABG pO2 ABG pO2 ABG HCO3 ABG Base Excess ABG Hemoglobin Oxyhemoglobin Sodium Potassium Chloride Carbon Dioxide BUN 72 H Creatinine 1.3 H Glucose 130 H POC Glucose 132 H 156 H Lactic Acid Calcium 8.2 L Ionized Calcium Phosphorus Magnesium Direct Bilirubin AST ALT Alkaline Phosphatase Lactate Dehydrogenase Troponin T C-Reactive Protein Total Protein Albumin Prealbumin Triglycerides Cholesterol LDL Cholesterol Direct HDL Cholesterol 25-OH Vitamin D Total PTH Intact Urine pH Urine WBC (Auto) Urine Creatinine Urine Total Protein Fluid Total Protein Vancomycin Trough Rheumatoid Factor Complement C4 Miscellaneous Test Crossmatch 12/24/16 12/25/16 12/25/16 17:53 00:23 05:45 WBC RBC Hgb Hct MCV MCH MCHC RDW Plt Count Lymph % (Auto) Roberts % (Auto) Lymph # Roberts # Baso # Seg Neutrophils % Seg Neuts % (Manual) Lymphocytes % (Manual) Monocytes % (Manual) Eosinophils % (Manual) Basophils % (Manual) Nucleated RBC % Seg Neutrophils # Seg Neutrophils # Man Lymphocytes # (Manual) Monocytes # (Manual) Eosinophils # (Manual) Basophils # (Manual) PT INR Fibrinogen dRVVT Confirm Interp Factor V Activity POC ABG pH POC ABG pCO2 POC ABG pO2 ABG pO2 ABG HCO3 ABG Base Excess ABG Hemoglobin Oxyhemoglobin Sodium 146 H Potassium Chloride Carbon Dioxide BUN 51 H Creatinine Glucose 109 H POC Glucose 169 H 117 H Lactic Acid Calcium Ionized Calcium Phosphorus Magnesium Direct Bilirubin AST ALT Alkaline Phosphatase Lactate Dehydrogenase Troponin T C-Reactive Protein Total Protein Albumin Prealbumin Triglycerides Cholesterol LDL Cholesterol Direct HDL Cholesterol 25-OH Vitamin D Total PTH Intact Urine pH Urine WBC (Auto) Urine Creatinine Urine Total Protein Fluid Total Protein Vancomycin Trough Rheumatoid Factor Complement C4 Miscellaneous Test Crossmatch 12/25/16 12/25/16 12/25/16 06:43 11:29 17:14 WBC RBC Hgb Hct MCV MCH MCHC RDW Plt Count Lymph % (Auto) Roberts % (Auto) Lymph # Roberts # Baso # Seg Neutrophils % Seg Neuts % (Manual) Lymphocytes % (Manual) Monocytes % (Manual) Eosinophils % (Manual) Basophils % (Manual) Nucleated RBC % Seg Neutrophils # Seg Neutrophils # Man Lymphocytes # (Manual) Monocytes # (Manual) Eosinophils # (Manual) Basophils # (Manual) PT INR Fibrinogen dRVVT Confirm Interp Factor V Activity POC ABG pH POC ABG pCO2 POC ABG pO2 ABG pO2 ABG HCO3 ABG Base Excess ABG Hemoglobin Oxyhemoglobin Sodium Potassium Chloride Carbon Dioxide BUN Creatinine Glucose POC Glucose 117 H 128 H 120 H Lactic Acid Calcium Ionized Calcium Phosphorus Magnesium Direct Bilirubin AST ALT Alkaline Phosphatase Lactate Dehydrogenase Troponin T C-Reactive Protein Total Protein Albumin Prealbumin Triglycerides Cholesterol LDL Cholesterol Direct HDL Cholesterol 25-OH Vitamin D Total PTH Intact Urine pH Urine WBC (Auto) Urine Creatinine Urine Total Protein Fluid Total Protein Vancomycin Trough Rheumatoid Factor Complement C4 Miscellaneous Test Crossmatch 12/25/16 12/26/16 12/26/16 23:54 05:40 05:50 WBC 16.2 H RBC 2.32 L Hgb 6.2 L Hct 20.1 L MCV MCH 27 L MCHC RDW 18.6 H Plt Count Lymph % (Auto) Roberts % (Auto) Lymph # Roberts # Baso # Seg Neutrophils % Seg Neuts % (Manual) Lymphocytes % (Manual) Monocytes % (Manual) Eosinophils % (Manual) Basophils % (Manual) Nucleated RBC % Seg Neutrophils # Seg Neutrophils # Man Lymphocytes # (Manual) Monocytes # (Manual) Eosinophils # (Manual) Basophils # (Manual) PT INR Fibrinogen dRVVT Confirm Interp Factor V Activity POC ABG pH POC ABG pCO2 POC ABG pO2 ABG pO2 ABG HCO3 ABG Base Excess ABG Hemoglobin Oxyhemoglobin Sodium Potassium Chloride Carbon Dioxide BUN Creatinine Glucose POC Glucose 126 H 132 H Lactic Acid Calcium Ionized Calcium Phosphorus Magnesium Direct Bilirubin AST ALT Alkaline Phosphatase Lactate Dehydrogenase Troponin T C-Reactive Protein Total Protein Albumin Prealbumin Triglycerides Cholesterol LDL Cholesterol Direct HDL Cholesterol 25-OH Vitamin D Total PTH Intact Urine pH Urine WBC (Auto) Urine Creatinine Urine Total Protein Fluid Total Protein Vancomycin Trough Rheumatoid Factor Complement C4 Miscellaneous Test Crossmatch 12/26/16 12/26/16 12/26/16 05:50 12:17 12:33 WBC RBC Hgb Hct MCV MCH MCHC RDW Plt Count Lymph % (Auto) Roberts % (Auto) Lymph # Roberts # Baso # Seg Neutrophils % Seg Neuts % (Manual) Lymphocytes % (Manual) Monocytes % (Manual) Eosinophils % (Manual) Basophils % (Manual) Nucleated RBC % Seg Neutrophils # Seg Neutrophils # Man Lymphocytes # (Manual) Monocytes # (Manual) Eosinophils # (Manual) Basophils # (Manual) PT INR Fibrinogen dRVVT Confirm Interp Factor V Activity POC ABG pH POC ABG pCO2 POC ABG pO2 ABG pO2 ABG HCO3 ABG Base Excess ABG Hemoglobin Oxyhemoglobin Sodium Potassium Chloride Carbon Dioxide BUN 73 H Creatinine 1.3 H Glucose 113 H POC Glucose 117 H Lactic Acid Calcium Ionized Calcium Phosphorus Magnesium Direct Bilirubin AST ALT Alkaline Phosphatase Lactate Dehydrogenase Troponin T C-Reactive Protein Total Protein Albumin Prealbumin Triglycerides Cholesterol LDL Cholesterol Direct HDL Cholesterol 25-OH Vitamin D Total PTH Intact Urine pH Urine WBC (Auto) Urine Creatinine Urine Total Protein Fluid Total Protein Vancomycin Trough Rheumatoid Factor Complement C4 Miscellaneous Test Crossmatch See Detail 12/26/16 12/26/16 12/27/16 20:00 23:21 05:00 WBC RBC Hgb 8.4 L Hct 26.3 L D MCV MCH MCHC RDW Plt Count Lymph % (Auto) Roberts % (Auto) Lymph # Roberts # Baso # Seg Neutrophils % Seg Neuts % (Manual) Lymphocytes % (Manual) Monocytes % (Manual) Eosinophils % (Manual) Basophils % (Manual) Nucleated RBC % Seg Neutrophils # Seg Neutrophils # Man Lymphocytes # (Manual) Monocytes # (Manual) Eosinophils # (Manual) Basophils # (Manual) PT INR Fibrinogen dRVVT Confirm Interp Factor V Activity POC ABG pH POC ABG pCO2 POC ABG pO2 ABG pO2 ABG HCO3 ABG Base Excess ABG Hemoglobin Oxyhemoglobin Sodium Potassium Chloride Carbon Dioxide BUN 85 H Creatinine 1.6 H Glucose 118 H POC Glucose 124 H Lactic Acid Calcium Ionized Calcium Phosphorus 4.80 H Magnesium Direct Bilirubin AST ALT Alkaline Phosphatase Lactate Dehydrogenase Troponin T C-Reactive Protein Total Protein Albumin Prealbumin Triglycerides Cholesterol LDL Cholesterol Direct HDL Cholesterol 25-OH Vitamin D Total PTH Intact Urine pH Urine WBC (Auto) Urine Creatinine Urine Total Protein Fluid Total Protein Vancomycin Trough Rheumatoid Factor Complement C4 Miscellaneous Test Crossmatch 12/27/16 12/27/16 12/27/16 05:00 05:35 12:24 WBC RBC Hgb 7.6 L Hct 22.8 L MCV MCH MCHC RDW Plt Count Lymph % (Auto) Roberts % (Auto) Lymph # Roberts # Baso # Seg Neutrophils % Seg Neuts % (Manual) Lymphocytes % (Manual) Monocytes % (Manual) Eosinophils % (Manual) Basophils % (Manual) Nucleated RBC % Seg Neutrophils # Seg Neutrophils # Man Lymphocytes # (Manual) Monocytes # (Manual) Eosinophils # (Manual) Basophils # (Manual) PT INR Fibrinogen dRVVT Confirm Interp Factor V Activity POC ABG pH POC ABG pCO2 POC ABG pO2 ABG pO2 ABG HCO3 ABG Base Excess ABG Hemoglobin Oxyhemoglobin Sodium Potassium Chloride Carbon Dioxide BUN Creatinine Glucose POC Glucose 115 H 131 H Lactic Acid Calcium Ionized Calcium Phosphorus Magnesium Direct Bilirubin AST ALT Alkaline Phosphatase Lactate Dehydrogenase Troponin T C-Reactive Protein Total Protein Albumin Prealbumin Triglycerides Cholesterol LDL Cholesterol Direct HDL Cholesterol 25-OH Vitamin D Total PTH Intact Urine pH Urine WBC (Auto) Urine Creatinine Urine Total Protein Fluid Total Protein Vancomycin Trough Rheumatoid Factor Complement C4 Miscellaneous Test Crossmatch 12/27/16 12/28/16 12/28/16 17:16 00:18 04:00 WBC RBC Hgb Hct MCV MCH MCHC RDW Plt Count Lymph % (Auto) Roberts % (Auto) Lymph # Roberts # Baso # Seg Neutrophils % Seg Neuts % (Manual) Lymphocytes % (Manual) Monocytes % (Manual) Eosinophils % (Manual) Basophils % (Manual) Nucleated RBC % Seg Neutrophils # Seg Neutrophils # Man Lymphocytes # (Manual) Monocytes # (Manual) Eosinophils # (Manual) Basophils # (Manual) PT INR Fibrinogen dRVVT Confirm Interp Factor V Activity POC ABG pH POC ABG pCO2 POC ABG pO2 ABG pO2 ABG HCO3 ABG Base Excess ABG Hemoglobin Oxyhemoglobin Sodium Potassium 3.5 L Chloride Carbon Dioxide BUN 57 H Creatinine Glucose 118 H POC Glucose 136 H 120 H Lactic Acid Calcium 8.3 L Ionized Calcium Phosphorus Magnesium Direct Bilirubin AST ALT Alkaline Phosphatase Lactate Dehydrogenase Troponin T C-Reactive Protein Total Protein Albumin Prealbumin Triglycerides Cholesterol LDL Cholesterol Direct HDL Cholesterol 25-OH Vitamin D Total PTH Intact Urine pH Urine WBC (Auto) Urine Creatinine Urine Total Protein Fluid Total Protein Vancomycin Trough Rheumatoid Factor Complement C4 Miscellaneous Test Crossmatch 12/28/16 12/28/16 12/28/16 04:00 05:11 08:30 WBC 17.0 H RBC 2.58 L Hgb 7.1 L Hct 22.0 L MCV MCH MCHC RDW 17.6 H Plt Count Lymph % (Auto) 12.2 L Roberts % (Auto) Lymph # Roberts # 1.1 H Baso # Seg Neutrophils % 80.5 H Seg Neuts % (Manual) Lymphocytes % (Manual) Monocytes % (Manual) Eosinophils % (Manual) Basophils % (Manual) Nucleated RBC % Seg Neutrophils # 13.7 H Seg Neutrophils # Man Lymphocytes # (Manual) Monocytes # (Manual) Eosinophils # (Manual) Basophils # (Manual) PT 16.1 H INR 1.23 H Fibrinogen dRVVT Confirm Interp Factor V Activity POC ABG pH POC ABG pCO2 POC ABG pO2 ABG pO2 ABG HCO3 ABG Base Excess ABG Hemoglobin Oxyhemoglobin Sodium Potassium Chloride Carbon Dioxide BUN Creatinine Glucose POC Glucose 122 H Lactic Acid Calcium Ionized Calcium Phosphorus Magnesium Direct Bilirubin AST ALT Alkaline Phosphatase Lactate Dehydrogenase Troponin T C-Reactive Protein Total Protein Albumin Prealbumin Triglycerides Cholesterol LDL Cholesterol Direct HDL Cholesterol 25-OH Vitamin D Total PTH Intact Urine pH Urine WBC (Auto) Urine Creatinine Urine Total Protein Fluid Total Protein Vancomycin Trough Rheumatoid Factor Complement C4 Miscellaneous Test Crossmatch 12/28/16 12/28/16 12/28/16 12:27 16:32 23:46 WBC RBC Hgb Hct MCV MCH MCHC RDW Plt Count Lymph % (Auto) Roberts % (Auto) Lymph # Roberts # Baso # Seg Neutrophils % Seg Neuts % (Manual) Lymphocytes % (Manual) Monocytes % (Manual) Eosinophils % (Manual) Basophils % (Manual) Nucleated RBC % Seg Neutrophils # Seg Neutrophils # Man Lymphocytes # (Manual) Monocytes # (Manual) Eosinophils # (Manual) Basophils # (Manual) PT INR Fibrinogen dRVVT Confirm Interp Factor V Activity POC ABG pH POC ABG pCO2 POC ABG pO2 ABG pO2 ABG HCO3 ABG Base Excess ABG Hemoglobin Oxyhemoglobin Sodium Potassium Chloride Carbon Dioxide BUN Creatinine Glucose POC Glucose 127 H 117 H 108 H Lactic Acid Calcium Ionized Calcium Phosphorus Magnesium Direct Bilirubin AST ALT Alkaline Phosphatase Lactate Dehydrogenase Troponin T C-Reactive Protein Total Protein Albumin Prealbumin Triglycerides Cholesterol LDL Cholesterol Direct HDL Cholesterol 25-OH Vitamin D Total PTH Intact Urine pH Urine WBC (Auto) Urine Creatinine Urine Total Protein Fluid Total Protein Vancomycin Trough Rheumatoid Factor Complement C4 Miscellaneous Test Crossmatch 12/29/16 12/29/16 12/29/16 05:15 05:15 05:32 WBC RBC Hgb Hct MCV MCH MCHC RDW Plt Count Lymph % (Auto) Roberts % (Auto) Lymph # Roberts # Baso # Seg Neutrophils % Seg Neuts % (Manual) Lymphocytes % (Manual) Monocytes % (Manual) Eosinophils % (Manual) Basophils % (Manual) Nucleated RBC % Seg Neutrophils # Seg Neutrophils # Man Lymphocytes # (Manual) Monocytes # (Manual) Eosinophils # (Manual) Basophils # (Manual) PT INR Fibrinogen dRVVT Confirm Interp Factor V Activity POC ABG pH POC ABG pCO2 POC ABG pO2 ABG pO2 ABG HCO3 ABG Base Excess ABG Hemoglobin Oxyhemoglobin Sodium Potassium Chloride Carbon Dioxide BUN 74 H Creatinine 1.6 H Glucose 111 H POC Glucose 123 H Lactic Acid Calcium Ionized Calcium Phosphorus Magnesium Direct Bilirubin AST ALT Alkaline Phosphatase Lactate Dehydrogenase Troponin T C-Reactive Protein Total Protein Albumin Prealbumin 0.110 L Triglycerides Cholesterol LDL Cholesterol Direct HDL Cholesterol 25-OH Vitamin D Total PTH Intact Urine pH Urine WBC (Auto) Urine Creatinine Urine Total Protein Fluid Total Protein Vancomycin Trough Rheumatoid Factor Complement C4 Miscellaneous Test Crossmatch 12/29/16 12/29/16 12/29/16 11:43 13:45 14:00 WBC 13.8 H RBC 2.26 L Hgb 6.3 L Hct 20.4 L MCV MCH MCHC RDW 18.3 H Plt Count Lymph % (Auto) Roberts % (Auto) Lymph # Roberts # 0.9 H Baso # Seg Neutrophils % 78.6 H Seg Neuts % (Manual) Lymphocytes % (Manual) Monocytes % (Manual) Eosinophils % (Manual) Basophils % (Manual) Nucleated RBC % Seg Neutrophils # 10.8 H Seg Neutrophils # Man Lymphocytes # (Manual) Monocytes # (Manual) Eosinophils # (Manual) Basophils # (Manual) PT INR Fibrinogen dRVVT Confirm Interp Factor V Activity POC ABG pH POC ABG pCO2 POC ABG pO2 ABG pO2 ABG HCO3 ABG Base Excess ABG Hemoglobin Oxyhemoglobin Sodium Potassium Chloride Carbon Dioxide BUN Creatinine Glucose POC Glucose 133 H Lactic Acid Calcium Ionized Calcium Phosphorus Magnesium Direct Bilirubin AST ALT Alkaline Phosphatase Lactate Dehydrogenase Troponin T C-Reactive Protein Total Protein Albumin Prealbumin Triglycerides Cholesterol LDL Cholesterol Direct HDL Cholesterol 25-OH Vitamin D Total PTH Intact Urine pH Urine WBC (Auto) Urine Creatinine Urine Total Protein Fluid Total Protein Vancomycin Trough Rheumatoid Factor Complement C4 Miscellaneous Test Crossmatch See Detail 12/29/16 12/29/16 12/29/16 17:03 23:15 23:22 WBC RBC Hgb 7.3 L Hct 22.3 L MCV MCH MCHC RDW Plt Count Lymph % (Auto) Roberts % (Auto) Lymph # Roberts # Baso # Seg Neutrophils % Seg Neuts % (Manual) Lymphocytes % (Manual) Monocytes % (Manual) Eosinophils % (Manual) Basophils % (Manual) Nucleated RBC % Seg Neutrophils # Seg Neutrophils # Man Lymphocytes # (Manual) Monocytes # (Manual) Eosinophils # (Manual) Basophils # (Manual) PT INR Fibrinogen dRVVT Confirm Interp Factor V Activity POC ABG pH POC ABG pCO2 POC ABG pO2 ABG pO2 ABG HCO3 ABG Base Excess ABG Hemoglobin Oxyhemoglobin Sodium Potassium Chloride Carbon Dioxide BUN Creatinine Glucose POC Glucose 139 H 120 H Lactic Acid Calcium Ionized Calcium Phosphorus Magnesium Direct Bilirubin AST ALT Alkaline Phosphatase Lactate Dehydrogenase Troponin T C-Reactive Protein Total Protein Albumin Prealbumin Triglycerides Cholesterol LDL Cholesterol Direct HDL Cholesterol 25-OH Vitamin D Total PTH Intact Urine pH Urine WBC (Auto) Urine Creatinine Urine Total Protein Fluid Total Protein Vancomycin Trough Rheumatoid Factor Complement C4 Miscellaneous Test Crossmatch 12/30/16 12/30/16 12/30/16 04:20 04:20 05:43 WBC 15.6 H RBC 2.81 L Hgb 8.0 L Hct 24.0 L MCV MCH MCHC RDW 16.9 H Plt Count Lymph % (Auto) Roberts % (Auto) Lymph # Roberts # 1.0 H Baso # Seg Neutrophils % 76.2 H Seg Neuts % (Manual) Lymphocytes % (Manual) Monocytes % (Manual) Eosinophils % (Manual) Basophils % (Manual) Nucleated RBC % Seg Neutrophils # 11.9 H Seg Neutrophils # Man Lymphocytes # (Manual) Monocytes # (Manual) Eosinophils # (Manual) Basophils # (Manual) PT INR Fibrinogen dRVVT Confirm Interp Factor V Activity POC ABG pH POC ABG pCO2 POC ABG pO2 ABG pO2 ABG HCO3 ABG Base Excess ABG Hemoglobin Oxyhemoglobin Sodium Potassium Chloride Carbon Dioxide BUN 87 H Creatinine 1.8 H Glucose 119 H POC Glucose 115 H Lactic Acid Calcium Ionized Calcium Phosphorus Magnesium Direct Bilirubin AST ALT Alkaline Phosphatase Lactate Dehydrogenase Troponin T C-Reactive Protein Total Protein Albumin Prealbumin Triglycerides Cholesterol LDL Cholesterol Direct HDL Cholesterol 25-OH Vitamin D Total PTH Intact Urine pH Urine WBC (Auto) Urine Creatinine Urine Total Protein Fluid Total Protein Vancomycin Trough Rheumatoid Factor Complement C4 Miscellaneous Test Crossmatch 12/30/16 12/30/16 12/31/16 17:27 23:21 04:00 WBC RBC Hgb Hct MCV MCH MCHC RDW Plt Count Lymph % (Auto) Roberts % (Auto) Lymph # Roberts # Baso # Seg Neutrophils % Seg Neuts % (Manual) Lymphocytes % (Manual) Monocytes % (Manual) Eosinophils % (Manual) Basophils % (Manual) Nucleated RBC % Seg Neutrophils # Seg Neutrophils # Man Lymphocytes # (Manual) Monocytes # (Manual) Eosinophils # (Manual) Basophils # (Manual) PT INR Fibrinogen dRVVT Confirm Interp Factor V Activity POC ABG pH POC ABG pCO2 POC ABG pO2 ABG pO2 ABG HCO3 ABG Base Excess ABG Hemoglobin Oxyhemoglobin Sodium Potassium Chloride Carbon Dioxide BUN 59 H Creatinine Glucose 298 H POC Glucose 144 H 125 H Lactic Acid Calcium Ionized Calcium Phosphorus Magnesium Direct Bilirubin AST ALT Alkaline Phosphatase Lactate Dehydrogenase Troponin T C-Reactive Protein Total Protein Albumin Prealbumin Triglycerides Cholesterol LDL Cholesterol Direct HDL Cholesterol 25-OH Vitamin D Total PTH Intact Urine pH Urine WBC (Auto) Urine Creatinine Urine Total Protein Fluid Total Protein Vancomycin Trough Rheumatoid Factor Complement C4 Miscellaneous Test Crossmatch 12/31/16 12/31/16 12/31/16 05:11 12:18 18:17 WBC RBC Hgb Hct MCV MCH MCHC RDW Plt Count Lymph % (Auto) Roberts % (Auto) Lymph # Roberts # Baso # Seg Neutrophils % Seg Neuts % (Manual) Lymphocytes % (Manual) Monocytes % (Manual) Eosinophils % (Manual) Basophils % (Manual) Nucleated RBC % Seg Neutrophils # Seg Neutrophils # Man Lymphocytes # (Manual) Monocytes # (Manual) Eosinophils # (Manual) Basophils # (Manual) PT INR Fibrinogen dRVVT Confirm Interp Factor V Activity POC ABG pH POC ABG pCO2 POC ABG pO2 ABG pO2 ABG HCO3 ABG Base Excess ABG Hemoglobin Oxyhemoglobin Sodium Potassium Chloride Carbon Dioxide BUN Creatinine Glucose POC Glucose 167 H 125 H 133 H Lactic Acid Calcium Ionized Calcium Phosphorus Magnesium Direct Bilirubin AST ALT Alkaline Phosphatase Lactate Dehydrogenase Troponin T C-Reactive Protein Total Protein Albumin Prealbumin Triglycerides Cholesterol LDL Cholesterol Direct HDL Cholesterol 25-OH Vitamin D Total PTH Intact Urine pH Urine WBC (Auto) Urine Creatinine Urine Total Protein Fluid Total Protein Vancomycin Trough Rheumatoid Factor Complement C4 Miscellaneous Test Crossmatch 12/31/16 01/01/17 01/01/17 23:55 05:00 05:12 WBC RBC Hgb Hct MCV MCH MCHC RDW Plt Count Lymph % (Auto) Roberts % (Auto) Lymph # Roberts # Baso # Seg Neutrophils % Seg Neuts % (Manual) Lymphocytes % (Manual) Monocytes % (Manual) Eosinophils % (Manual) Basophils % (Manual) Nucleated RBC % Seg Neutrophils # Seg Neutrophils # Man Lymphocytes # (Manual) Monocytes # (Manual) Eosinophils # (Manual) Basophils # (Manual) PT INR Fibrinogen dRVVT Confirm Interp Factor V Activity POC ABG pH POC ABG pCO2 POC ABG pO2 ABG pO2 ABG HCO3 ABG Base Excess ABG Hemoglobin Oxyhemoglobin Sodium Potassium Chloride Carbon Dioxide BUN 76 H Creatinine 1.5 H Glucose 109 H POC Glucose 129 H 129 H Lactic Acid Calcium Ionized Calcium Phosphorus Magnesium Direct Bilirubin AST ALT Alkaline Phosphatase 536 H Lactate Dehydrogenase Troponin T C-Reactive Protein Total Protein Albumin 1.5 L Prealbumin Triglycerides Cholesterol LDL Cholesterol Direct HDL Cholesterol 25-OH Vitamin D Total PTH Intact Urine pH Urine WBC (Auto) Urine Creatinine Urine Total Protein Fluid Total Protein Vancomycin Trough Rheumatoid Factor Complement C4 Miscellaneous Test Crossmatch 01/01/17 01/01/17 01/01/17 12:25 17:01 23:32 WBC RBC Hgb Hct MCV MCH MCHC RDW Plt Count Lymph % (Auto) Roberts % (Auto) Lymph # Roberts # Baso # Seg Neutrophils % Seg Neuts % (Manual) Lymphocytes % (Manual) Monocytes % (Manual) Eosinophils % (Manual) Basophils % (Manual) Nucleated RBC % Seg Neutrophils # Seg Neutrophils # Man Lymphocytes # (Manual) Monocytes # (Manual) Eosinophils # (Manual) Basophils # (Manual) PT INR Fibrinogen dRVVT Confirm Interp Factor V Activity POC ABG pH POC ABG pCO2 POC ABG pO2 ABG pO2 ABG HCO3 ABG Base Excess ABG Hemoglobin Oxyhemoglobin Sodium Potassium Chloride Carbon Dioxide BUN Creatinine Glucose POC Glucose 140 H 142 H 112 H Lactic Acid Calcium Ionized Calcium Phosphorus Magnesium Direct Bilirubin AST ALT Alkaline Phosphatase Lactate Dehydrogenase Troponin T C-Reactive Protein Total Protein Albumin Prealbumin Triglycerides Cholesterol LDL Cholesterol Direct HDL Cholesterol 25-OH Vitamin D Total PTH Intact Urine pH Urine WBC (Auto) Urine Creatinine Urine Total Protein Fluid Total Protein Vancomycin Trough Rheumatoid Factor Complement C4 Miscellaneous Test Crossmatch 01/02/17 01/02/17 01/02/17 04:56 06:00 11:37 WBC RBC Hgb Hct MCV MCH MCHC RDW Plt Count Lymph % (Auto) Roberts % (Auto) Lymph # Roberts # Baso # Seg Neutrophils % Seg Neuts % (Manual) Lymphocytes % (Manual) Monocytes % (Manual) Eosinophils % (Manual) Basophils % (Manual) Nucleated RBC % Seg Neutrophils # Seg Neutrophils # Man Lymphocytes # (Manual) Monocytes # (Manual) Eosinophils # (Manual) Basophils # (Manual) PT INR Fibrinogen dRVVT Confirm Interp Factor V Activity POC ABG pH POC ABG pCO2 POC ABG pO2 ABG pO2 ABG HCO3 ABG Base Excess ABG Hemoglobin Oxyhemoglobin Sodium Potassium Chloride Carbon Dioxide BUN 88 H Creatinine 1.7 H Glucose 113 H POC Glucose 136 H 200 H Lactic Acid Calcium Ionized Calcium Phosphorus Magnesium Direct Bilirubin AST ALT Alkaline Phosphatase Lactate Dehydrogenase Troponin T C-Reactive Protein Total Protein Albumin Prealbumin Triglycerides Cholesterol LDL Cholesterol Direct HDL Cholesterol 25-OH Vitamin D Total PTH Intact Urine pH Urine WBC (Auto) Urine Creatinine Urine Total Protein Fluid Total Protein Vancomycin Trough Rheumatoid Factor Complement C4 Miscellaneous Test Crossmatch 01/02/17 01/02/17 01/03/17 17:42 22:52 04:54 WBC RBC Hgb Hct MCV MCH MCHC RDW Plt Count Lymph % (Auto) Roberts % (Auto) Lymph # Roberts # Baso # Seg Neutrophils % Seg Neuts % (Manual) Lymphocytes % (Manual) Monocytes % (Manual) Eosinophils % (Manual) Basophils % (Manual) Nucleated RBC % Seg Neutrophils # Seg Neutrophils # Man Lymphocytes # (Manual) Monocytes # (Manual) Eosinophils # (Manual) Basophils # (Manual) PT INR Fibrinogen dRVVT Confirm Interp Factor V Activity POC ABG pH POC ABG pCO2 POC ABG pO2 ABG pO2 ABG HCO3 ABG Base Excess ABG Hemoglobin Oxyhemoglobin Sodium Potassium Chloride Carbon Dioxide BUN Creatinine Glucose POC Glucose 112 H 133 H 111 H Lactic Acid Calcium Ionized Calcium Phosphorus Magnesium Direct Bilirubin AST ALT Alkaline Phosphatase Lactate Dehydrogenase Troponin T C-Reactive Protein Total Protein Albumin Prealbumin Triglycerides Cholesterol LDL Cholesterol Direct HDL Cholesterol 25-OH Vitamin D Total PTH Intact Urine pH Urine WBC (Auto) Urine Creatinine Urine Total Protein Fluid Total Protein Vancomycin Trough Rheumatoid Factor Complement C4 Miscellaneous Test Crossmatch 01/03/17 01/03/17 01/03/17 05:00 05:00 14:02 WBC 11.2 H RBC 2.56 L Hgb 7.2 L Hct 22.3 L MCV MCH MCHC RDW 17.3 H Plt Count Lymph % (Auto) Roberts % (Auto) 10.0 H Lymph # Roberts # 1.1 H Baso # Seg Neutrophils % 70.5 H Seg Neuts % (Manual) Lymphocytes % (Manual) Monocytes % (Manual) Eosinophils % (Manual) Basophils % (Manual) Nucleated RBC % Seg Neutrophils # 7.9 H Seg Neutrophils # Man Lymphocytes # (Manual) Monocytes # (Manual) Eosinophils # (Manual) Basophils # (Manual) PT INR Fibrinogen dRVVT Confirm Interp Factor V Activity POC ABG pH POC ABG pCO2 POC ABG pO2 ABG pO2 ABG HCO3 ABG Base Excess ABG Hemoglobin Oxyhemoglobin Sodium Potassium Chloride Carbon Dioxide BUN 60 H Creatinine 1.3 H Glucose 110 H POC Glucose 119 H Lactic Acid Calcium Ionized Calcium Phosphorus Magnesium Direct Bilirubin AST ALT Alkaline Phosphatase Lactate Dehydrogenase Troponin T C-Reactive Protein Total Protein Albumin Prealbumin Triglycerides Cholesterol LDL Cholesterol Direct HDL Cholesterol 25-OH Vitamin D Total PTH Intact Urine pH Urine WBC (Auto) Urine Creatinine Urine Total Protein Fluid Total Protein Vancomycin Trough Rheumatoid Factor Complement C4 Miscellaneous Test Crossmatch 01/03/17 01/03/17 01/04/17 18:13 23:40 05:57 WBC RBC Hgb Hct MCV MCH MCHC RDW Plt Count Lymph % (Auto) Roberts % (Auto) Lymph # Roberts # Baso # Seg Neutrophils % Seg Neuts % (Manual) Lymphocytes % (Manual) Monocytes % (Manual) Eosinophils % (Manual) Basophils % (Manual) Nucleated RBC % Seg Neutrophils # Seg Neutrophils # Man Lymphocytes # (Manual) Monocytes # (Manual) Eosinophils # (Manual) Basophils # (Manual) PT INR Fibrinogen dRVVT Confirm Interp Factor V Activity POC ABG pH POC ABG pCO2 POC ABG pO2 ABG pO2 ABG HCO3 ABG Base Excess ABG Hemoglobin Oxyhemoglobin Sodium Potassium Chloride Carbon Dioxide BUN Creatinine Glucose POC Glucose 107 H 129 H 111 H Lactic Acid Calcium Ionized Calcium Phosphorus Magnesium Direct Bilirubin AST ALT Alkaline Phosphatase Lactate Dehydrogenase Troponin T C-Reactive Protein Total Protein Albumin Prealbumin Triglycerides Cholesterol LDL Cholesterol Direct HDL Cholesterol 25-OH Vitamin D Total PTH Intact Urine pH Urine WBC (Auto) Urine Creatinine Urine Total Protein Fluid Total Protein Vancomycin Trough Rheumatoid Factor Complement C4 Miscellaneous Test Crossmatch 01/04/17 01/04/17 01/04/17 12:46 15:27 17:11 WBC RBC Hgb Hct MCV MCH MCHC RDW Plt Count Lymph % (Auto) Roberts % (Auto) Lymph # Roberts # Baso # Seg Neutrophils % Seg Neuts % (Manual) Lymphocytes % (Manual) Monocytes % (Manual) Eosinophils % (Manual) Basophils % (Manual) Nucleated RBC % Seg Neutrophils # Seg Neutrophils # Man Lymphocytes # (Manual) Monocytes # (Manual) Eosinophils # (Manual) Basophils # (Manual) PT INR Fibrinogen dRVVT Confirm Interp Factor V Activity POC ABG pH POC ABG pCO2 POC ABG pO2 ABG pO2 ABG HCO3 ABG Base Excess ABG Hemoglobin Oxyhemoglobin Sodium Potassium Chloride Carbon Dioxide BUN 43 H Creatinine Glucose 124 H POC Glucose 159 H 125 H Lactic Acid Calcium 8.0 L Ionized Calcium Phosphorus 2.10 L Magnesium Direct Bilirubin AST ALT Alkaline Phosphatase Lactate Dehydrogenase Troponin T C-Reactive Protein Total Protein Albumin Prealbumin Triglycerides Cholesterol LDL Cholesterol Direct HDL Cholesterol 25-OH Vitamin D Total PTH Intact Urine pH Urine WBC (Auto) Urine Creatinine Urine Total Protein Fluid Total Protein Vancomycin Trough Rheumatoid Factor Complement C4 Miscellaneous Test Crossmatch 01/04/17 01/05/17 01/05/17 23:31 04:00 05:46 WBC RBC Hgb Hct MCV MCH MCHC RDW Plt Count Lymph % (Auto) Roberts % (Auto) Lymph # Roberts # Baso # Seg Neutrophils % Seg Neuts % (Manual) Lymphocytes % (Manual) Monocytes % (Manual) Eosinophils % (Manual) Basophils % (Manual) Nucleated RBC % Seg Neutrophils # Seg Neutrophils # Man Lymphocytes # (Manual) Monocytes # (Manual) Eosinophils # (Manual) Basophils # (Manual) PT INR Fibrinogen dRVVT Confirm Interp Factor V Activity POC ABG pH POC ABG pCO2 POC ABG pO2 ABG pO2 ABG HCO3 ABG Base Excess ABG Hemoglobin Oxyhemoglobin Sodium Potassium Chloride Carbon Dioxide BUN 52 H Creatinine 1.3 H Glucose 113 H POC Glucose 123 H 118 H Lactic Acid Calcium Ionized Calcium Phosphorus 2.40 L Magnesium Direct Bilirubin AST ALT Alkaline Phosphatase Lactate Dehydrogenase Troponin T C-Reactive Protein Total Protein Albumin Prealbumin Triglycerides Cholesterol LDL Cholesterol Direct HDL Cholesterol 25-OH Vitamin D Total PTH Intact Urine pH Urine WBC (Auto) Urine Creatinine Urine Total Protein Fluid Total Protein Vancomycin Trough Rheumatoid Factor Complement C4 Miscellaneous Test Crossmatch 01/05/17 01/05/17 01/05/17 11:41 17:48 23:27 WBC RBC Hgb Hct MCV MCH MCHC RDW Plt Count Lymph % (Auto) Roberts % (Auto) Lymph # Roberts # Baso # Seg Neutrophils % Seg Neuts % (Manual) Lymphocytes % (Manual) Monocytes % (Manual) Eosinophils % (Manual) Basophils % (Manual) Nucleated RBC % Seg Neutrophils # Seg Neutrophils # Man Lymphocytes # (Manual) Monocytes # (Manual) Eosinophils # (Manual) Basophils # (Manual) PT INR Fibrinogen dRVVT Confirm Interp Factor V Activity POC ABG pH POC ABG pCO2 POC ABG pO2 ABG pO2 ABG HCO3 ABG Base Excess ABG Hemoglobin Oxyhemoglobin Sodium Potassium Chloride Carbon Dioxide BUN Creatinine Glucose POC Glucose 163 H 142 H 155 H Lactic Acid Calcium Ionized Calcium Phosphorus Magnesium Direct Bilirubin AST ALT Alkaline Phosphatase Lactate Dehydrogenase Troponin T C-Reactive Protein Total Protein Albumin Prealbumin Triglycerides Cholesterol LDL Cholesterol Direct HDL Cholesterol 25-OH Vitamin D Total PTH Intact Urine pH Urine WBC (Auto) Urine Creatinine Urine Total Protein Fluid Total Protein Vancomycin Trough Rheumatoid Factor Complement C4 Miscellaneous Test Crossmatch 01/06/17 01/06/17 01/06/17 05:20 07:35 11:18 WBC RBC Hgb Hct MCV MCH MCHC RDW Plt Count Lymph % (Auto) Roberts % (Auto) Lymph # Roberts # Baso # Seg Neutrophils % Seg Neuts % (Manual) Lymphocytes % (Manual) Monocytes % (Manual) Eosinophils % (Manual) Basophils % (Manual) Nucleated RBC % Seg Neutrophils # Seg Neutrophils # Man Lymphocytes # (Manual) Monocytes # (Manual) Eosinophils # (Manual) Basophils # (Manual) PT INR Fibrinogen dRVVT Confirm Interp Factor V Activity POC ABG pH POC ABG pCO2 POC ABG pO2 ABG pO2 ABG HCO3 ABG Base Excess ABG Hemoglobin Oxyhemoglobin Sodium Potassium Chloride Carbon Dioxide BUN 74 H Creatinine 1.6 H Glucose 135 H POC Glucose 108 H 149 H Lactic Acid Calcium Ionized Calcium Phosphorus Magnesium Direct Bilirubin AST ALT Alkaline Phosphatase Lactate Dehydrogenase Troponin T C-Reactive Protein Total Protein Albumin Prealbumin Triglycerides Cholesterol LDL Cholesterol Direct HDL Cholesterol 25-OH Vitamin D Total PTH Intact Urine pH Urine WBC (Auto) Urine Creatinine Urine Total Protein Fluid Total Protein Vancomycin Trough Rheumatoid Factor Complement C4 Miscellaneous Test Crossmatch 01/06/17 01/07/17 01/07/17 17:17 00:23 05:31 WBC RBC Hgb Hct MCV MCH MCHC RDW Plt Count Lymph % (Auto) Roberts % (Auto) Lymph # Roberts # Baso # Seg Neutrophils % Seg Neuts % (Manual) Lymphocytes % (Manual) Monocytes % (Manual) Eosinophils % (Manual) Basophils % (Manual) Nucleated RBC % Seg Neutrophils # Seg Neutrophils # Man Lymphocytes # (Manual) Monocytes # (Manual) Eosinophils # (Manual) Basophils # (Manual) PT INR Fibrinogen dRVVT Confirm Interp Factor V Activity POC ABG pH POC ABG pCO2 POC ABG pO2 ABG pO2 ABG HCO3 ABG Base Excess ABG Hemoglobin Oxyhemoglobin Sodium Potassium Chloride Carbon Dioxide BUN Creatinine Glucose POC Glucose 146 H 165 H 153 H Lactic Acid Calcium Ionized Calcium Phosphorus Magnesium Direct Bilirubin AST ALT Alkaline Phosphatase Lactate Dehydrogenase Troponin T C-Reactive Protein Total Protein Albumin Prealbumin Triglycerides Cholesterol LDL Cholesterol Direct HDL Cholesterol 25-OH Vitamin D Total PTH Intact Urine pH Urine WBC (Auto) Urine Creatinine Urine Total Protein Fluid Total Protein Vancomycin Trough Rheumatoid Factor Complement C4 Miscellaneous Test Crossmatch 01/07/17 01/07/17 01/07/17 06:00 11:39 17:11 WBC RBC Hgb Hct MCV MCH MCHC RDW Plt Count Lymph % (Auto) Roberts % (Auto) Lymph # Roberts # Baso # Seg Neutrophils % Seg Neuts % (Manual) Lymphocytes % (Manual) Monocytes % (Manual) Eosinophils % (Manual) Basophils % (Manual) Nucleated RBC % Seg Neutrophils # Seg Neutrophils # Man Lymphocytes # (Manual) Monocytes # (Manual) Eosinophils # (Manual) Basophils # (Manual) PT INR Fibrinogen dRVVT Confirm Interp Factor V Activity POC ABG pH POC ABG pCO2 POC ABG pO2 ABG pO2 ABG HCO3 ABG Base Excess ABG Hemoglobin Oxyhemoglobin Sodium Potassium Chloride Carbon Dioxide BUN 42 H Creatinine Glucose 175 H POC Glucose 163 H 163 H Lactic Acid Calcium Ionized Calcium Phosphorus 2.40 L D Magnesium Direct Bilirubin AST ALT Alkaline Phosphatase Lactate Dehydrogenase Troponin T C-Reactive Protein Total Protein Albumin Prealbumin Triglycerides Cholesterol LDL Cholesterol Direct HDL Cholesterol 25-OH Vitamin D Total PTH Intact Urine pH Urine WBC (Auto) Urine Creatinine Urine Total Protein Fluid Total Protein Vancomycin Trough Rheumatoid Factor Complement C4 Miscellaneous Test Crossmatch 01/07/17 01/08/17 01/08/17 23:40 05:00 05:00 WBC 27.4 H RBC 2.27 L Hgb 6.1 L Hct 20.4 L MCV MCH 27 L MCHC RDW 17.8 H Plt Count Lymph % (Auto) Roberts % (Auto) Lymph # Roberts # Baso # Seg Neutrophils % Seg Neuts % (Manual) Lymphocytes % (Manual) Monocytes % (Manual) Eosinophils % (Manual) Basophils % (Manual) Nucleated RBC % Seg Neutrophils # Seg Neutrophils # Man Lymphocytes # (Manual) Monocytes # (Manual) Eosinophils # (Manual) Basophils # (Manual) PT INR Fibrinogen dRVVT Confirm Interp Factor V Activity POC ABG pH POC ABG pCO2 POC ABG pO2 ABG pO2 ABG HCO3 ABG Base Excess ABG Hemoglobin Oxyhemoglobin Sodium Potassium Chloride Carbon Dioxide 16 L D BUN 62 H Creatinine 1.6 H D Glucose 103 H POC Glucose 135 H Lactic Acid Calcium Ionized Calcium Phosphorus Magnesium Direct Bilirubin AST ALT Alkaline Phosphatase Lactate Dehydrogenase Troponin T C-Reactive Protein Total Protein Albumin Prealbumin Triglycerides Cholesterol LDL Cholesterol Direct HDL Cholesterol 25-OH Vitamin D Total PTH Intact Urine pH Urine WBC (Auto) Urine Creatinine Urine Total Protein Fluid Total Protein Vancomycin Trough Rheumatoid Factor Complement C4 Miscellaneous Test Crossmatch 01/08/17 01/08/17 01/08/17 05:25 10:37 10:37 WBC RBC Hgb Hct MCV MCH MCHC RDW Plt Count Lymph % (Auto) Roberts % (Auto) Lymph # Roberts # Baso # Seg Neutrophils % Seg Neuts % (Manual) Lymphocytes % (Manual) Monocytes % (Manual) Eosinophils % (Manual) Basophils % (Manual) Nucleated RBC % Seg Neutrophils # Seg Neutrophils # Man Lymphocytes # (Manual) Monocytes # (Manual) Eosinophils # (Manual) Basophils # (Manual) PT INR Fibrinogen dRVVT Confirm Interp Factor V Activity POC ABG pH POC ABG pCO2 POC ABG pO2 ABG pO2 ABG HCO3 ABG Base Excess ABG Hemoglobin Oxyhemoglobin Sodium Potassium Chloride Carbon Dioxide BUN Creatinine Glucose POC Glucose 106 H Lactic Acid Calcium Ionized Calcium Phosphorus Magnesium Direct Bilirubin AST ALT Alkaline Phosphatase Lactate Dehydrogenase Troponin T C-Reactive Protein 24.40 H Total Protein Albumin Prealbumin Triglycerides Cholesterol LDL Cholesterol Direct HDL Cholesterol 25-OH Vitamin D Total PTH Intact Urine pH Urine WBC (Auto) Urine Creatinine Urine Total Protein Fluid Total Protein Vancomycin Trough Rheumatoid Factor Complement C4 Miscellaneous Test Crossmatch See Detail 01/08/17 01/08/17 01/08/17 10:37 11:33 15:15 WBC RBC Hgb Hct MCV MCH MCHC RDW Plt Count Lymph % (Auto) Roberts % (Auto) Lymph # Roberts # Baso # Seg Neutrophils % Seg Neuts % (Manual) Lymphocytes % (Manual) Monocytes % (Manual) Eosinophils % (Manual) Basophils % (Manual) Nucleated RBC % Seg Neutrophils # Seg Neutrophils # Man Lymphocytes # (Manual) Monocytes # (Manual) Eosinophils # (Manual) Basophils # (Manual) PT INR Fibrinogen dRVVT Confirm Interp Factor V Activity POC ABG pH POC ABG pCO2 POC ABG pO2 ABG pO2 ABG HCO3 ABG Base Excess ABG Hemoglobin Oxyhemoglobin Sodium Potassium Chloride Carbon Dioxide BUN Creatinine Glucose POC Glucose 157 H Lactic Acid 9.70 H* 9.10 H* Calcium Ionized Calcium Phosphorus Magnesium Direct Bilirubin AST ALT Alkaline Phosphatase Lactate Dehydrogenase Troponin T C-Reactive Protein Total Protein Albumin Prealbumin Triglycerides Cholesterol LDL Cholesterol Direct HDL Cholesterol 25-OH Vitamin D Total PTH Intact Urine pH Urine WBC (Auto) Urine Creatinine Urine Total Protein Fluid Total Protein Vancomycin Trough Rheumatoid Factor Complement C4 Miscellaneous Test Crossmatch 01/08/17 01/08/17 01/09/17 17:19 23:12 04:40 WBC RBC Hgb Hct MCV MCH MCHC RDW Plt Count Lymph % (Auto) Roberts % (Auto) Lymph # Roberts # Baso # Seg Neutrophils % Seg Neuts % (Manual) Lymphocytes % (Manual) Monocytes % (Manual) Eosinophils % (Manual) Basophils % (Manual) Nucleated RBC % Seg Neutrophils # Seg Neutrophils # Man Lymphocytes # (Manual) Monocytes # (Manual) Eosinophils # (Manual) Basophils # (Manual) PT INR Fibrinogen dRVVT Confirm Interp Factor V Activity POC ABG pH POC ABG pCO2 POC ABG pO2 ABG pO2 ABG HCO3 ABG Base Excess ABG Hemoglobin Oxyhemoglobin Sodium 147 H Potassium Chloride Carbon Dioxide BUN 82 H Creatinine 1.8 H Glucose 137 H POC Glucose 164 H 157 H Lactic Acid Calcium Ionized Calcium Phosphorus Magnesium Direct Bilirubin AST ALT Alkaline Phosphatase Lactate Dehydrogenase Troponin T C-Reactive Protein Total Protein Albumin Prealbumin Triglycerides Cholesterol LDL Cholesterol Direct HDL Cholesterol 25-OH Vitamin D Total PTH Intact Urine pH Urine WBC (Auto) Urine Creatinine Urine Total Protein Fluid Total Protein Vancomycin Trough Rheumatoid Factor Complement C4 Miscellaneous Test Crossmatch 01/09/17 01/09/17 01/09/17 05:42 08:22 10:57 WBC RBC Hgb Hct MCV MCH MCHC RDW Plt Count Lymph % (Auto) Roberts % (Auto) Lymph # Roberts # Baso # Seg Neutrophils % Seg Neuts % (Manual) Lymphocytes % (Manual) Monocytes % (Manual) Eosinophils % (Manual) Basophils % (Manual) Nucleated RBC % Seg Neutrophils # Seg Neutrophils # Man Lymphocytes # (Manual) Monocytes # (Manual) Eosinophils # (Manual) Basophils # (Manual) PT INR Fibrinogen dRVVT Confirm Interp Factor V Activity POC ABG pH POC ABG pCO2 POC ABG pO2 ABG pO2 ABG HCO3 ABG Base Excess ABG Hemoglobin Oxyhemoglobin Sodium Potassium Chloride Carbon Dioxide BUN Creatinine Glucose POC Glucose 156 H 122 H Lactic Acid 2.30 H* Calcium Ionized Calcium Phosphorus Magnesium Direct Bilirubin AST ALT Alkaline Phosphatase Lactate Dehydrogenase Troponin T C-Reactive Protein Total Protein Albumin Prealbumin Triglycerides Cholesterol LDL Cholesterol Direct HDL Cholesterol 25-OH Vitamin D Total PTH Intact Urine pH Urine WBC (Auto) Urine Creatinine Urine Total Protein Fluid Total Protein Vancomycin Trough Rheumatoid Factor Complement C4 Miscellaneous Test Crossmatch 01/09/17 01/09/17 01/09/17 13:30 17:14 18:45 WBC RBC Hgb Hct MCV MCH MCHC RDW Plt Count Lymph % (Auto) Roberts % (Auto) Lymph # Roberts # Baso # Seg Neutrophils % Seg Neuts % (Manual) Lymphocytes % (Manual) Monocytes % (Manual) Eosinophils % (Manual) Basophils % (Manual) Nucleated RBC % Seg Neutrophils # Seg Neutrophils # Man Lymphocytes # (Manual) Monocytes # (Manual) Eosinophils # (Manual) Basophils # (Manual) PT INR Fibrinogen dRVVT Confirm Interp Factor V Activity POC ABG pH POC ABG pCO2 POC ABG pO2 ABG pO2 ABG HCO3 ABG Base Excess ABG Hemoglobin Oxyhemoglobin Sodium Potassium Chloride Carbon Dioxide BUN Creatinine Glucose POC Glucose 127 H Lactic Acid Calcium Ionized Calcium Phosphorus Magnesium Direct Bilirubin AST ALT Alkaline Phosphatase Lactate Dehydrogenase Troponin T C-Reactive Protein 24.70 H Total Protein Albumin Prealbumin Triglycerides Cholesterol LDL Cholesterol Direct HDL Cholesterol 25-OH Vitamin D Total PTH Intact Urine pH Urine WBC (Auto) Urine Creatinine Urine Total Protein Fluid Total Protein Vancomycin Trough Rheumatoid Factor Complement C4 Miscellaneous Test Flexitest 1 H Crossmatch 01/10/17 01/10/17 01/10/17 01:21 04:00 04:00 WBC 18.1 H RBC 3.22 L Hgb 8.8 L Hct 27.0 L D MCV MCH 27 L MCHC RDW 17.0 H Plt Count Lymph % (Auto) Roberts % (Auto) Lymph # Roberts # Baso # Seg Neutrophils % Seg Neuts % (Manual) Lymphocytes % (Manual) Monocytes % (Manual) Eosinophils % (Manual) Basophils % (Manual) Nucleated RBC % Seg Neutrophils # Seg Neutrophils # Man Lymphocytes # (Manual) Monocytes # (Manual) Eosinophils # (Manual) Basophils # (Manual) PT INR Fibrinogen dRVVT Confirm Interp Factor V Activity POC ABG pH POC ABG pCO2 POC ABG pO2 ABG pO2 ABG HCO3 ABG Base Excess ABG Hemoglobin Oxyhemoglobin Sodium Potassium Chloride Carbon Dioxide BUN 59 H Creatinine 1.3 H Glucose 122 H POC Glucose 160 H Lactic Acid Calcium Ionized Calcium Phosphorus Magnesium Direct Bilirubin AST ALT Alkaline Phosphatase Lactate Dehydrogenase Troponin T C-Reactive Protein Total Protein Albumin Prealbumin Triglycerides Cholesterol LDL Cholesterol Direct HDL Cholesterol 25-OH Vitamin D Total PTH Intact Urine pH Urine WBC (Auto) Urine Creatinine Urine Total Protein Fluid Total Protein Vancomycin Trough Rheumatoid Factor Complement C4 Miscellaneous Test Crossmatch 01/10/17 01/10/17 01/10/17 05:36 12:14 17:55 WBC RBC Hgb Hct MCV MCH MCHC RDW Plt Count Lymph % (Auto) Roberts % (Auto) Lymph # Roberts # Baso # Seg Neutrophils % Seg Neuts % (Manual) Lymphocytes % (Manual) Monocytes % (Manual) Eosinophils % (Manual) Basophils % (Manual) Nucleated RBC % Seg Neutrophils # Seg Neutrophils # Man Lymphocytes # (Manual) Monocytes # (Manual) Eosinophils # (Manual) Basophils # (Manual) PT INR Fibrinogen dRVVT Confirm Interp Factor V Activity POC ABG pH POC ABG pCO2 POC ABG pO2 ABG pO2 ABG HCO3 ABG Base Excess ABG Hemoglobin Oxyhemoglobin Sodium Potassium Chloride Carbon Dioxide BUN Creatinine Glucose POC Glucose 163 H 120 H 144 H Lactic Acid Calcium Ionized Calcium Phosphorus Magnesium Direct Bilirubin AST ALT Alkaline Phosphatase Lactate Dehydrogenase Troponin T C-Reactive Protein Total Protein Albumin Prealbumin Triglycerides Cholesterol LDL Cholesterol Direct HDL Cholesterol 25-OH Vitamin D Total PTH Intact Urine pH Urine WBC (Auto) Urine Creatinine Urine Total Protein Fluid Total Protein Vancomycin Trough Rheumatoid Factor Complement C4 Miscellaneous Test Crossmatch 01/11/17 01/11/17 01/11/17 00:09 04:00 04:00 WBC 15.8 H RBC 3.04 L Hgb 8.2 L Hct 25.5 L MCV MCH 27 L MCHC RDW 17.3 H Plt Count Lymph % (Auto) Roberts % (Auto) Lymph # Roberts # Baso # Seg Neutrophils % Seg Neuts % (Manual) Lymphocytes % (Manual) Monocytes % (Manual) Eosinophils % (Manual) Basophils % (Manual) Nucleated RBC % Seg Neutrophils # Seg Neutrophils # Man Lymphocytes # (Manual) Monocytes # (Manual) Eosinophils # (Manual) Basophils # (Manual) PT INR Fibrinogen dRVVT Confirm Interp Factor V Activity POC ABG pH POC ABG pCO2 POC ABG pO2 ABG pO2 ABG HCO3 ABG Base Excess ABG Hemoglobin Oxyhemoglobin Sodium Potassium Chloride Carbon Dioxide BUN 78 H Creatinine 1.6 H Glucose 109 H POC Glucose 122 H Lactic Acid Calcium Ionized Calcium Phosphorus Magnesium Direct Bilirubin AST ALT Alkaline Phosphatase Lactate Dehydrogenase Troponin T C-Reactive Protein Total Protein Albumin Prealbumin Triglycerides Cholesterol LDL Cholesterol Direct HDL Cholesterol 25-OH Vitamin D Total PTH Intact Urine pH Urine WBC (Auto) Urine Creatinine Urine Total Protein Fluid Total Protein Vancomycin Trough Rheumatoid Factor Complement C4 Miscellaneous Test Crossmatch 01/11/17 01/11/17 01/11/17 12:46 18:23 23:42 WBC RBC Hgb Hct MCV MCH MCHC RDW Plt Count Lymph % (Auto) Roberts % (Auto) Lymph # Roberts # Baso # Seg Neutrophils % Seg Neuts % (Manual) Lymphocytes % (Manual) Monocytes % (Manual) Eosinophils % (Manual) Basophils % (Manual) Nucleated RBC % Seg Neutrophils # Seg Neutrophils # Man Lymphocytes # (Manual) Monocytes # (Manual) Eosinophils # (Manual) Basophils # (Manual) PT INR Fibrinogen dRVVT Confirm Interp Factor V Activity POC ABG pH POC ABG pCO2 POC ABG pO2 ABG pO2 ABG HCO3 ABG Base Excess ABG Hemoglobin Oxyhemoglobin Sodium Potassium Chloride Carbon Dioxide BUN Creatinine Glucose POC Glucose 148 H 125 H 124 H Lactic Acid Calcium Ionized Calcium Phosphorus Magnesium Direct Bilirubin AST ALT Alkaline Phosphatase Lactate Dehydrogenase Troponin T C-Reactive Protein Total Protein Albumin Prealbumin Triglycerides Cholesterol LDL Cholesterol Direct HDL Cholesterol 25-OH Vitamin D Total PTH Intact Urine pH Urine WBC (Auto) Urine Creatinine Urine Total Protein Fluid Total Protein Vancomycin Trough Rheumatoid Factor Complement C4 Miscellaneous Test Crossmatch 01/12/17 01/12/17 01/12/17 04:30 04:30 05:47 WBC 15.8 H RBC 3.31 L Hgb 8.9 L Hct 27.9 L MCV MCH 27 L MCHC RDW 17.4 H Plt Count Lymph % (Auto) Roberts % (Auto) Lymph # Roberts # Baso # Seg Neutrophils % Seg Neuts % (Manual) Lymphocytes % (Manual) Monocytes % (Manual) Eosinophils % (Manual) Basophils % (Manual) Nucleated RBC % Seg Neutrophils # Seg Neutrophils # Man Lymphocytes # (Manual) Monocytes # (Manual) Eosinophils # (Manual) Basophils # (Manual) PT INR Fibrinogen dRVVT Confirm Interp Factor V Activity POC ABG pH POC ABG pCO2 POC ABG pO2 ABG pO2 ABG HCO3 ABG Base Excess ABG Hemoglobin Oxyhemoglobin Sodium Potassium Chloride Carbon Dioxide BUN 57 H Creatinine Glucose 121 H POC Glucose 110 H Lactic Acid Calcium Ionized Calcium Phosphorus 2.10 L Magnesium Direct Bilirubin AST ALT Alkaline Phosphatase Lactate Dehydrogenase Troponin T C-Reactive Protein Total Protein Albumin Prealbumin Triglycerides Cholesterol LDL Cholesterol Direct HDL Cholesterol 25-OH Vitamin D Total PTH Intact Urine pH Urine WBC (Auto) Urine Creatinine Urine Total Protein Fluid Total Protein Vancomycin Trough Rheumatoid Factor Complement C4 Miscellaneous Test Crossmatch 01/12/17 01/12/17 01/12/17 11:35 17:45 23:14 WBC RBC Hgb Hct MCV MCH MCHC RDW Plt Count Lymph % (Auto) Roberts % (Auto) Lymph # Roberts # Baso # Seg Neutrophils % Seg Neuts % (Manual) Lymphocytes % (Manual) Monocytes % (Manual) Eosinophils % (Manual) Basophils % (Manual) Nucleated RBC % Seg Neutrophils # Seg Neutrophils # Man Lymphocytes # (Manual) Monocytes # (Manual) Eosinophils # (Manual) Basophils # (Manual) PT INR Fibrinogen dRVVT Confirm Interp Factor V Activity POC ABG pH POC ABG pCO2 POC ABG pO2 ABG pO2 ABG HCO3 ABG Base Excess ABG Hemoglobin Oxyhemoglobin Sodium Potassium Chloride Carbon Dioxide BUN Creatinine Glucose POC Glucose 146 H 117 H 123 H Lactic Acid Calcium Ionized Calcium Phosphorus Magnesium Direct Bilirubin AST ALT Alkaline Phosphatase Lactate Dehydrogenase Troponin T C-Reactive Protein Total Protein Albumin Prealbumin Triglycerides Cholesterol LDL Cholesterol Direct HDL Cholesterol 25-OH Vitamin D Total PTH Intact Urine pH Urine WBC (Auto) Urine Creatinine Urine Total Protein Fluid Total Protein Vancomycin Trough Rheumatoid Factor Complement C4 Miscellaneous Test Crossmatch 01/13/17 01/13/17 01/13/17 05:32 06:00 12:10 WBC RBC Hgb Hct MCV MCH MCHC RDW Plt Count Lymph % (Auto) Roberts % (Auto) Lymph # Roberts # Baso # Seg Neutrophils % Seg Neuts % (Manual) Lymphocytes % (Manual) Monocytes % (Manual) Eosinophils % (Manual) Basophils % (Manual) Nucleated RBC % Seg Neutrophils # Seg Neutrophils # Man Lymphocytes # (Manual) Monocytes # (Manual) Eosinophils # (Manual) Basophils # (Manual) PT INR Fibrinogen dRVVT Confirm Interp Factor V Activity POC ABG pH POC ABG pCO2 POC ABG pO2 ABG pO2 ABG HCO3 ABG Base Excess ABG Hemoglobin Oxyhemoglobin Sodium Potassium Chloride Carbon Dioxide BUN 80 H Creatinine 1.4 H Glucose 106 H POC Glucose 106 H Lactic Acid Calcium Ionized Calcium Phosphorus Magnesium Direct Bilirubin AST ALT Alkaline Phosphatase Lactate Dehydrogenase Troponin T C-Reactive Protein Total Protein Albumin Prealbumin Triglycerides Cholesterol LDL Cholesterol Direct HDL Cholesterol 25-OH Vitamin D Total PTH Intact Urine pH Urine WBC (Auto) Urine Creatinine Urine Total Protein Fluid Total Protein 3.0 L Vancomycin Trough Rheumatoid Factor Complement C4 Miscellaneous Test Crossmatch 01/13/17 01/13/17 01/13/17 12:17 15:50 17:30 WBC RBC Hgb Hct MCV MCH MCHC RDW Plt Count Lymph % (Auto) Roberts % (Auto) Lymph # Roberts # Baso # Seg Neutrophils % Seg Neuts % (Manual) Lymphocytes % (Manual) Monocytes % (Manual) Eosinophils % (Manual) Basophils % (Manual) Nucleated RBC % Seg Neutrophils # Seg Neutrophils # Man Lymphocytes # (Manual) Monocytes # (Manual) Eosinophils # (Manual) Basophils # (Manual) PT 15.4 H INR 1.16 H Fibrinogen dRVVT Confirm Interp Factor V Activity POC ABG pH POC ABG pCO2 POC ABG pO2 ABG pO2 ABG HCO3 ABG Base Excess ABG Hemoglobin Oxyhemoglobin Sodium Potassium Chloride Carbon Dioxide BUN Creatinine Glucose POC Glucose 168 H 110 H Lactic Acid Calcium Ionized Calcium Phosphorus Magnesium Direct Bilirubin AST ALT Alkaline Phosphatase Lactate Dehydrogenase Troponin T C-Reactive Protein Total Protein Albumin Prealbumin Triglycerides Cholesterol LDL Cholesterol Direct HDL Cholesterol 25-OH Vitamin D Total PTH Intact Urine pH Urine WBC (Auto) Urine Creatinine Urine Total Protein Fluid Total Protein Vancomycin Trough Rheumatoid Factor Complement C4 Miscellaneous Test Crossmatch 01/13/17 01/14/17 01/14/17 23:42 05:24 05:30 WBC RBC Hgb Hct MCV MCH MCHC RDW Plt Count Lymph % (Auto) Roberts % (Auto) Lymph # Roberts # Baso # Seg Neutrophils % Seg Neuts % (Manual) Lymphocytes % (Manual) Monocytes % (Manual) Eosinophils % (Manual) Basophils % (Manual) Nucleated RBC % Seg Neutrophils # Seg Neutrophils # Man Lymphocytes # (Manual) Monocytes # (Manual) Eosinophils # (Manual) Basophils # (Manual) PT INR Fibrinogen dRVVT Confirm Interp Factor V Activity POC ABG pH POC ABG pCO2 POC ABG pO2 ABG pO2 ABG HCO3 ABG Base Excess ABG Hemoglobin Oxyhemoglobin Sodium Potassium Chloride Carbon Dioxide BUN 58 H Creatinine Glucose 114 H POC Glucose 155 H 121 H Lactic Acid Calcium Ionized Calcium Phosphorus Magnesium Direct Bilirubin AST ALT Alkaline Phosphatase Lactate Dehydrogenase Troponin T C-Reactive Protein Total Protein Albumin Prealbumin Triglycerides Cholesterol LDL Cholesterol Direct HDL Cholesterol 25-OH Vitamin D Total PTH Intact Urine pH Urine WBC (Auto) Urine Creatinine Urine Total Protein Fluid Total Protein Vancomycin Trough Rheumatoid Factor Complement C4 Miscellaneous Test Crossmatch 01/14/17 01/14/17 01/15/17 12:48 17:36 00:15 WBC RBC Hgb Hct MCV MCH MCHC RDW Plt Count Lymph % (Auto) Roberts % (Auto) Lymph # Roberts # Baso # Seg Neutrophils % Seg Neuts % (Manual) Lymphocytes % (Manual) Monocytes % (Manual) Eosinophils % (Manual) Basophils % (Manual) Nucleated RBC % Seg Neutrophils # Seg Neutrophils # Man Lymphocytes # (Manual) Monocytes # (Manual) Eosinophils # (Manual) Basophils # (Manual) PT INR Fibrinogen dRVVT Confirm Interp Factor V Activity POC ABG pH POC ABG pCO2 POC ABG pO2 ABG pO2 ABG HCO3 ABG Base Excess ABG Hemoglobin Oxyhemoglobin Sodium Potassium Chloride Carbon Dioxide BUN Creatinine Glucose POC Glucose 130 H 135 H 132 H Lactic Acid Calcium Ionized Calcium Phosphorus Magnesium Direct Bilirubin AST ALT Alkaline Phosphatase Lactate Dehydrogenase Troponin T C-Reactive Protein Total Protein Albumin Prealbumin Triglycerides Cholesterol LDL Cholesterol Direct HDL Cholesterol 25-OH Vitamin D Total PTH Intact Urine pH Urine WBC (Auto) Urine Creatinine Urine Total Protein Fluid Total Protein Vancomycin Trough Rheumatoid Factor Complement C4 Miscellaneous Test Crossmatch 01/15/17 01/15/17 01/15/17 05:01 11:55 12:45 WBC 16.2 H RBC 3.00 L Hgb 8.1 L Hct 25.4 L MCV MCH 27 L MCHC RDW 17.6 H Plt Count Lymph % (Auto) 11.7 L Roberts % (Auto) 7.8 H Lymph # Roberts # 1.3 H Baso # Seg Neutrophils % 80.1 H Seg Neuts % (Manual) Lymphocytes % (Manual) Monocytes % (Manual) Eosinophils % (Manual) Basophils % (Manual) Nucleated RBC % Seg Neutrophils # 13.0 H Seg Neutrophils # Man Lymphocytes # (Manual) Monocytes # (Manual) Eosinophils # (Manual) Basophils # (Manual) PT INR Fibrinogen dRVVT Confirm Interp Factor V Activity POC ABG pH POC ABG pCO2 POC ABG pO2 ABG pO2 ABG HCO3 ABG Base Excess ABG Hemoglobin Oxyhemoglobin Sodium Potassium Chloride Carbon Dioxide BUN Creatinine Glucose POC Glucose 126 H 125 H Lactic Acid Calcium Ionized Calcium Phosphorus Magnesium Direct Bilirubin AST ALT Alkaline Phosphatase Lactate Dehydrogenase Troponin T C-Reactive Protein Total Protein Albumin Prealbumin Triglycerides Cholesterol LDL Cholesterol Direct HDL Cholesterol 25-OH Vitamin D Total PTH Intact Urine pH Urine WBC (Auto) Urine Creatinine Urine Total Protein Fluid Total Protein Vancomycin Trough Rheumatoid Factor Complement C4 Miscellaneous Test Crossmatch 01/15/17 01/15/17 01/15/17 12:45 17:31 23:39 WBC RBC Hgb Hct MCV MCH MCHC RDW Plt Count Lymph % (Auto) Roberts % (Auto) Lymph # Roberts # Baso # Seg Neutrophils % Seg Neuts % (Manual) Lymphocytes % (Manual) Monocytes % (Manual) Eosinophils % (Manual) Basophils % (Manual) Nucleated RBC % Seg Neutrophils # Seg Neutrophils # Man Lymphocytes # (Manual) Monocytes # (Manual) Eosinophils # (Manual) Basophils # (Manual) PT INR Fibrinogen dRVVT Confirm Interp Factor V Activity POC ABG pH POC ABG pCO2 POC ABG pO2 ABG pO2 ABG HCO3 ABG Base Excess ABG Hemoglobin Oxyhemoglobin Sodium 136 L Potassium Chloride Carbon Dioxide BUN 87 H Creatinine 1.7 H Glucose 108 H POC Glucose 129 H 112 H Lactic Acid Calcium Ionized Calcium Phosphorus Magnesium Direct Bilirubin AST ALT Alkaline Phosphatase Lactate Dehydrogenase Troponin T C-Reactive Protein Total Protein Albumin Prealbumin Triglycerides Cholesterol LDL Cholesterol Direct HDL Cholesterol 25-OH Vitamin D Total PTH Intact Urine pH Urine WBC (Auto) Urine Creatinine Urine Total Protein Fluid Total Protein Vancomycin Trough Rheumatoid Factor Complement C4 Miscellaneous Test Crossmatch 01/16/17 01/16/17 01/16/17 05:23 11:42 12:32 WBC RBC Hgb Hct MCV MCH MCHC RDW Plt Count Lymph % (Auto) Roberts % (Auto) Lymph # Roberts # Baso # Seg Neutrophils % Seg Neuts % (Manual) Lymphocytes % (Manual) Monocytes % (Manual) Eosinophils % (Manual) Basophils % (Manual) Nucleated RBC % Seg Neutrophils # Seg Neutrophils # Man Lymphocytes # (Manual) Monocytes # (Manual) Eosinophils # (Manual) Basophils # (Manual) PT INR Fibrinogen dRVVT Confirm Interp Factor V Activity POC ABG pH 7.499 H POC ABG pCO2 30.9 L POC ABG pO2 51 L ABG pO2 ABG HCO3 ABG Base Excess ABG Hemoglobin Oxyhemoglobin Sodium Potassium Chloride Carbon Dioxide BUN Creatinine Glucose POC Glucose 118 H 133 H Lactic Acid Calcium Ionized Calcium Phosphorus Magnesium Direct Bilirubin AST ALT Alkaline Phosphatase Lactate Dehydrogenase Troponin T C-Reactive Protein Total Protein Albumin Prealbumin Triglycerides Cholesterol LDL Cholesterol Direct HDL Cholesterol 25-OH Vitamin D Total PTH Intact Urine pH Urine WBC (Auto) Urine Creatinine Urine Total Protein Fluid Total Protein Vancomycin Trough Rheumatoid Factor Complement C4 Miscellaneous Test Crossmatch 01/16/17 01/16/17 01/16/17 17:52 23:57 Unknown WBC RBC Hgb Hct MCV MCH MCHC RDW Plt Count Lymph % (Auto) Roberts % (Auto) Lymph # Roberts # Baso # Seg Neutrophils % Seg Neuts % (Manual) Lymphocytes % (Manual) Monocytes % (Manual) Eosinophils % (Manual) Basophils % (Manual) Nucleated RBC % Seg Neutrophils # Seg Neutrophils # Man Lymphocytes # (Manual) Monocytes # (Manual) Eosinophils # (Manual) Basophils # (Manual) PT INR Fibrinogen dRVVT Confirm Interp Factor V Activity POC ABG pH POC ABG pCO2 POC ABG pO2 ABG pO2 ABG HCO3 ABG Base Excess ABG Hemoglobin Oxyhemoglobin Sodium 135 L Potassium Chloride Carbon Dioxide BUN 101 H Creatinine 1.8 H Glucose 117 H POC Glucose 130 H 143 H Lactic Acid Calcium Ionized Calcium Phosphorus 5.80 H Magnesium Direct Bilirubin AST ALT Alkaline Phosphatase Lactate Dehydrogenase Troponin T C-Reactive Protein Total Protein Albumin Prealbumin Triglycerides Cholesterol LDL Cholesterol Direct HDL Cholesterol 25-OH Vitamin D Total PTH Intact Urine pH Urine WBC (Auto) Urine Creatinine Urine Total Protein Fluid Total Protein Vancomycin Trough Rheumatoid Factor Complement C4 Miscellaneous Test Crossmatch 01/17/17 01/17/17 01/17/17 05:30 05:46 11:49 WBC RBC Hgb Hct MCV MCH MCHC RDW Plt Count Lymph % (Auto) Roberts % (Auto) Lymph # Roberts # Baso # Seg Neutrophils % Seg Neuts % (Manual) Lymphocytes % (Manual) Monocytes % (Manual) Eosinophils % (Manual) Basophils % (Manual) Nucleated RBC % Seg Neutrophils # Seg Neutrophils # Man Lymphocytes # (Manual) Monocytes # (Manual) Eosinophils # (Manual) Basophils # (Manual) PT INR Fibrinogen dRVVT Confirm Interp Factor V Activity POC ABG pH POC ABG pCO2 POC ABG pO2 ABG pO2 ABG HCO3 ABG Base Excess ABG Hemoglobin Oxyhemoglobin Sodium 134 L Potassium Chloride 95.8 L Carbon Dioxide BUN 66 H Creatinine 1.3 H Glucose 138 H POC Glucose 147 H 124 H Lactic Acid Calcium Ionized Calcium Phosphorus Magnesium Direct Bilirubin AST ALT Alkaline Phosphatase 254 H Lactate Dehydrogenase Troponin T C-Reactive Protein Total Protein Albumin 1.3 L Prealbumin Triglycerides Cholesterol LDL Cholesterol Direct HDL Cholesterol 25-OH Vitamin D Total PTH Intact Urine pH Urine WBC (Auto) Urine Creatinine Urine Total Protein Fluid Total Protein Vancomycin Trough Rheumatoid Factor Complement C4 Miscellaneous Test Crossmatch 01/17/17 01/17/17 01/18/17 17:30 23:41 05:15 WBC RBC Hgb Hct MCV MCH MCHC RDW Plt Count Lymph % (Auto) Roberts % (Auto) Lymph # Roberts # Baso # Seg Neutrophils % Seg Neuts % (Manual) Lymphocytes % (Manual) Monocytes % (Manual) Eosinophils % (Manual) Basophils % (Manual) Nucleated RBC % Seg Neutrophils # Seg Neutrophils # Man Lymphocytes # (Manual) Monocytes # (Manual) Eosinophils # (Manual) Basophils # (Manual) PT INR Fibrinogen dRVVT Confirm Interp Factor V Activity POC ABG pH POC ABG pCO2 POC ABG pO2 ABG pO2 ABG HCO3 ABG Base Excess ABG Hemoglobin Oxyhemoglobin Sodium Potassium Chloride Carbon Dioxide BUN 89 H Creatinine 1.7 H Glucose 118 H POC Glucose 137 H 119 H Lactic Acid Calcium Ionized Calcium Phosphorus Magnesium Direct Bilirubin AST ALT Alkaline Phosphatase Lactate Dehydrogenase Troponin T C-Reactive Protein Total Protein Albumin Prealbumin Triglycerides Cholesterol LDL Cholesterol Direct HDL Cholesterol 25-OH Vitamin D Total PTH Intact Urine pH Urine WBC (Auto) Urine Creatinine Urine Total Protein Fluid Total Protein Vancomycin Trough Rheumatoid Factor Complement C4 Miscellaneous Test Crossmatch 01/18/17 01/18/17 01/18/17 05:19 12:16 18:11 WBC RBC Hgb Hct MCV MCH MCHC RDW Plt Count Lymph % (Auto) Roberts % (Auto) Lymph # Roberts # Baso # Seg Neutrophils % Seg Neuts % (Manual) Lymphocytes % (Manual) Monocytes % (Manual) Eosinophils % (Manual) Basophils % (Manual) Nucleated RBC % Seg Neutrophils # Seg Neutrophils # Man Lymphocytes # (Manual) Monocytes # (Manual) Eosinophils # (Manual) Basophils # (Manual) PT INR Fibrinogen dRVVT Confirm Interp Factor V Activity POC ABG pH POC ABG pCO2 POC ABG pO2 ABG pO2 ABG HCO3 ABG Base Excess ABG Hemoglobin Oxyhemoglobin Sodium Potassium Chloride Carbon Dioxide BUN Creatinine Glucose POC Glucose 134 H 188 H 113 H Lactic Acid Calcium Ionized Calcium Phosphorus Magnesium Direct Bilirubin AST ALT Alkaline Phosphatase Lactate Dehydrogenase Troponin T C-Reactive Protein Total Protein Albumin Prealbumin Triglycerides Cholesterol LDL Cholesterol Direct HDL Cholesterol 25-OH Vitamin D Total PTH Intact Urine pH Urine WBC (Auto) Urine Creatinine Urine Total Protein Fluid Total Protein Vancomycin Trough Rheumatoid Factor Complement C4 Miscellaneous Test Crossmatch 01/19/17 01/19/17 01/19/17 00:00 05:30 05:36 WBC RBC Hgb Hct MCV MCH MCHC RDW Plt Count Lymph % (Auto) Roberts % (Auto) Lymph # Roberts # Baso # Seg Neutrophils % Seg Neuts % (Manual) Lymphocytes % (Manual) Monocytes % (Manual) Eosinophils % (Manual) Basophils % (Manual) Nucleated RBC % Seg Neutrophils # Seg Neutrophils # Man Lymphocytes # (Manual) Monocytes # (Manual) Eosinophils # (Manual) Basophils # (Manual) PT INR Fibrinogen dRVVT Confirm Interp Factor V Activity POC ABG pH POC ABG pCO2 POC ABG pO2 ABG pO2 ABG HCO3 ABG Base Excess ABG Hemoglobin Oxyhemoglobin Sodium Potassium Chloride Carbon Dioxide BUN 70 H Creatinine 1.5 H Glucose 121 H POC Glucose 137 H 155 H Lactic Acid Calcium Ionized Calcium Phosphorus 2.10 L D Magnesium Direct Bilirubin AST ALT Alkaline Phosphatase Lactate Dehydrogenase Troponin T C-Reactive Protein Total Protein Albumin Prealbumin Triglycerides Cholesterol LDL Cholesterol Direct HDL Cholesterol 25-OH Vitamin D Total PTH Intact Urine pH Urine WBC (Auto) Urine Creatinine Urine Total Protein Fluid Total Protein Vancomycin Trough Rheumatoid Factor Complement C4 Miscellaneous Test Crossmatch 01/19/17 01/19/17 01/19/17 11:59 15:32 17:57 WBC RBC Hgb Hct MCV MCH MCHC RDW Plt Count Lymph % (Auto) Roberts % (Auto) Lymph # Roberts # Baso # Seg Neutrophils % Seg Neuts % (Manual) Lymphocytes % (Manual) Monocytes % (Manual) Eosinophils % (Manual) Basophils % (Manual) Nucleated RBC % Seg Neutrophils # Seg Neutrophils # Man Lymphocytes # (Manual) Monocytes # (Manual) Eosinophils # (Manual) Basophils # (Manual) PT INR Fibrinogen dRVVT Confirm Interp Factor V Activity POC ABG pH POC ABG pCO2 33.1 L POC ABG pO2 76 L ABG pO2 ABG HCO3 ABG Base Excess ABG Hemoglobin Oxyhemoglobin Sodium Potassium Chloride Carbon Dioxide BUN Creatinine Glucose POC Glucose 156 H 129 H Lactic Acid Calcium Ionized Calcium Phosphorus Magnesium Direct Bilirubin AST ALT Alkaline Phosphatase Lactate Dehydrogenase Troponin T C-Reactive Protein Total Protein Albumin Prealbumin Triglycerides Cholesterol LDL Cholesterol Direct HDL Cholesterol 25-OH Vitamin D Total PTH Intact Urine pH Urine WBC (Auto) Urine Creatinine Urine Total Protein Fluid Total Protein Vancomycin Trough Rheumatoid Factor Complement C4 Miscellaneous Test Crossmatch 01/19/17 01/20/1701/20/17 23:49 04:00 05:21 WBC RBC Hgb Hct MCV MCH MCHC RDW Plt Count Lymph % (Auto) Roberts % (Auto) Lymph # Roberts # Baso # Seg Neutrophils % Seg Neuts % (Manual) Lymphocytes % (Manual) Monocytes % (Manual) Eosinophils % (Manual) Basophils % (Manual) Nucleated RBC % Seg Neutrophils # Seg Neutrophils # Man Lymphocytes # (Manual) Monocytes # (Manual) Eosinophils # (Manual) Basophils # (Manual) PT INR Fibrinogen dRVVT Confirm Interp Factor V Activity POC ABG pH POC ABG pCO2 POC ABG pO2 ABG pO2 ABG HCO3 ABG Base Excess ABG Hemoglobin Oxyhemoglobin Sodium Potassium Chloride Carbon Dioxide BUN 96 H Creatinine 1.9 H Glucose 106 H POC Glucose 125 H 130 H Lactic Acid Calcium Ionized Calcium Phosphorus 2.40 L Magnesium Direct Bilirubin AST ALT Alkaline Phosphatase Lactate Dehydrogenase Troponin T C-Reactive Protein Total Protein Albumin Prealbumin Triglycerides Cholesterol LDL Cholesterol Direct HDL Cholesterol 25-OH Vitamin D Total PTH Intact Urine pH Urine WBC (Auto) Urine Creatinine Urine Total Protein Fluid Total Protein Vancomycin Trough Rheumatoid Factor Complement C4 Miscellaneous Test Crossmatch 01/20/17 01/20/17 01/20/17 11:58 12:17 17:26 WBC RBC Hgb Hct MCV MCH MCHC RDW Plt Count Lymph % (Auto) Roberts % (Auto) Lymph # Roberts # Baso # Seg Neutrophils % Seg Neuts % (Manual) Lymphocytes % (Manual) Monocytes % (Manual) Eosinophils % (Manual) Basophils % (Manual) Nucleated RBC % Seg Neutrophils # Seg Neutrophils # Man Lymphocytes # (Manual) Monocytes # (Manual) Eosinophils # (Manual) Basophils # (Manual) PT INR Fibrinogen dRVVT Confirm Interp Factor V Activity POC ABG pH POC ABG pCO2 POC ABG pO2 70 L ABG pO2 ABG HCO3 ABG Base Excess ABG Hemoglobin Oxyhemoglobin Sodium Potassium Chloride Carbon Dioxide BUN Creatinine Glucose POC Glucose 118 H 154 H Lactic Acid Calcium Ionized Calcium Phosphorus Magnesium Direct Bilirubin AST ALT Alkaline Phosphatase Lactate Dehydrogenase Troponin T C-Reactive Protein Total Protein Albumin Prealbumin Triglycerides Cholesterol LDL Cholesterol Direct HDL Cholesterol 25-OH Vitamin D Total PTH Intact Urine pH Urine WBC (Auto) Urine Creatinine Urine Total Protein Fluid Total Protein Vancomycin Trough Rheumatoid Factor Complement C4 Miscellaneous Test Crossmatch 01/21/17 01/21/17 01/21/17 04:00 04:56 11:46 WBC RBC Hgb Hct MCV MCH MCHC RDW Plt Count Lymph % (Auto) Roberts % (Auto) Lymph # Roberts # Baso # Seg Neutrophils % Seg Neuts % (Manual) Lymphocytes % (Manual) Monocytes % (Manual) Eosinophils % (Manual) Basophils % (Manual) Nucleated RBC % Seg Neutrophils # Seg Neutrophils # Man Lymphocytes # (Manual) Monocytes # (Manual) Eosinophils # (Manual) Basophils # (Manual) PT INR Fibrinogen dRVVT Confirm Interp Factor V Activity POC ABG pH POC ABG pCO2 POC ABG pO2 ABG pO2 ABG HCO3 ABG Base Excess ABG Hemoglobin Oxyhemoglobin Sodium Potassium 3.5 L Chloride 97.4 L Carbon Dioxide BUN 66 H Creatinine 1.4 H Glucose POC Glucose 116 H 106 H Lactic Acid Calcium Ionized Calcium Phosphorus 2.10 L Magnesium Direct Bilirubin AST ALT Alkaline Phosphatase Lactate Dehydrogenase Troponin T C-Reactive Protein Total Protein Albumin Prealbumin Triglycerides Cholesterol LDL Cholesterol Direct HDL Cholesterol 25-OH Vitamin D Total PTH Intact Urine pH Urine WBC (Auto) Urine Creatinine Urine Total Protein Fluid Total Protein Vancomycin Trough Rheumatoid Factor Complement C4 Miscellaneous Test Crossmatch 01/21/17 01/21/17 01/22/17 17:25 23:49 05:35 WBC RBC Hgb Hct MCV MCH MCHC RDW Plt Count Lymph % (Auto) Roberts % (Auto) Lymph # Roberts # Baso # Seg Neutrophils % Seg Neuts % (Manual) Lymphocytes % (Manual) Monocytes % (Manual) Eosinophils % (Manual) Basophils % (Manual) Nucleated RBC % Seg Neutrophils # Seg Neutrophils # Man Lymphocytes # (Manual) Monocytes # (Manual) Eosinophils # (Manual) Basophils # (Manual) PT INR Fibrinogen dRVVT Confirm Interp Factor V Activity POC ABG pH POC ABG pCO2 POC ABG pO2 ABG pO2 ABG HCO3 ABG Base Excess ABG Hemoglobin Oxyhemoglobin Sodium Potassium Chloride Carbon Dioxide BUN Creatinine Glucose POC Glucose 106 H 133 H 107 H Lactic Acid Calcium Ionized Calcium Phosphorus Magnesium Direct Bilirubin AST ALT Alkaline Phosphatase Lactate Dehydrogenase Troponin T C-Reactive Protein Total Protein Albumin Prealbumin Triglycerides Cholesterol LDL Cholesterol Direct HDL Cholesterol 25-OH Vitamin D Total PTH Intact Urine pH Urine WBC (Auto) Urine Creatinine Urine Total Protein Fluid Total Protein Vancomycin Trough Rheumatoid Factor Complement C4 Miscellaneous Test Crossmatch 01/22/17 01/22/17 01/22/17 07:20 07:20 11:31 WBC RBC 2.75 L Hgb 7.5 L Hct 22.7 L MCV MCH 27 L MCHC RDW 17.5 H Plt Count Lymph % (Auto) Roberts % (Auto) Lymph # Roberts # Baso # Seg Neutrophils % Seg Neuts % (Manual) Lymphocytes % (Manual) Monocytes % (Manual) Eosinophils % (Manual) Basophils % (Manual) Nucleated RBC % Seg Neutrophils # Seg Neutrophils # Man Lymphocytes # (Manual) Monocytes # (Manual) Eosinophils # (Manual) Basophils # (Manual) PT INR Fibrinogen dRVVT Confirm Interp Factor V Activity POC ABG pH POC ABG pCO2 POC ABG pO2 ABG pO2 ABG HCO3 ABG Base Excess ABG Hemoglobin Oxyhemoglobin Sodium Potassium 3.3 L Chloride Carbon Dioxide BUN 42 H Creatinine Glucose 105 H POC Glucose 124 H Lactic Acid Calcium Ionized Calcium Phosphorus 1.70 L Magnesium Direct Bilirubin AST ALT Alkaline Phosphatase Lactate Dehydrogenase Troponin T C-Reactive Protein Total Protein Albumin Prealbumin Triglycerides Cholesterol LDL Cholesterol Direct HDL Cholesterol 25-OH Vitamin D Total PTH Intact Urine pH Urine WBC (Auto) Urine Creatinine Urine Total Protein Fluid Total Protein Vancomycin Trough Rheumatoid Factor Complement C4 Miscellaneous Test Crossmatch 01/22/17 01/22/17 01/23/17 17:16 23:35 05:35 WBC RBC Hgb Hct MCV MCH MCHC RDW Plt Count Lymph % (Auto) Roberts % (Auto) Lymph # Roberts # Baso # Seg Neutrophils % Seg Neuts % (Manual) Lymphocytes % (Manual) Monocytes % (Manual) Eosinophils % (Manual) Basophils % (Manual) Nucleated RBC % Seg Neutrophils # Seg Neutrophils # Man Lymphocytes # (Manual) Monocytes # (Manual) Eosinophils # (Manual) Basophils # (Manual) PT INR Fibrinogen dRVVT Confirm Interp Factor V Activity POC ABG pH POC ABG pCO2 POC ABG pO2 ABG pO2 ABG HCO3 ABG Base Excess ABG Hemoglobin Oxyhemoglobin Sodium Potassium Chloride Carbon Dioxide BUN Creatinine Glucose POC Glucose 135 H 120 H 111 H Lactic Acid Calcium Ionized Calcium Phosphorus Magnesium Direct Bilirubin AST ALT Alkaline Phosphatase Lactate Dehydrogenase Troponin T C-Reactive Protein Total Protein Albumin Prealbumin Triglycerides Cholesterol LDL Cholesterol Direct HDL Cholesterol 25-OH Vitamin D Total PTH Intact Urine pH Urine WBC (Auto) Urine Creatinine Urine Total Protein Fluid Total Protein Vancomycin Trough Rheumatoid Factor Complement C4 Miscellaneous Test Crossmatch 01/23/17 01/23/17 01/23/17 06:10 17:27 23:44 WBC RBC Hgb Hct MCV MCH MCHC RDW Plt Count Lymph % (Auto) Roberts % (Auto) Lymph # Roberts # Baso # Seg Neutrophils % Seg Neuts % (Manual) Lymphocytes % (Manual) Monocytes % (Manual) Eosinophils % (Manual) Basophils % (Manual) Nucleated RBC % Seg Neutrophils # Seg Neutrophils # Man Lymphocytes # (Manual) Monocytes # (Manual) Eosinophils # (Manual) Basophils # (Manual) PT INR Fibrinogen dRVVT Confirm Interp Factor V Activity POC ABG pH POC ABG pCO2 POC ABG pO2 ABG pO2 ABG HCO3 ABG Base Excess ABG Hemoglobin Oxyhemoglobin Sodium Potassium 3.3 L Chloride Carbon Dioxide BUN 66 H Creatinine 1.3 H Glucose 109 H POC Glucose 120 H 115 H Lactic Acid Calcium Ionized Calcium Phosphorus 2.20 L D Magnesium Direct Bilirubin AST ALT Alkaline Phosphatase Lactate Dehydrogenase Troponin T C-Reactive Protein Total Protein Albumin Prealbumin Triglycerides Cholesterol LDL Cholesterol Direct HDL Cholesterol 25-OH Vitamin D Total PTH Intact Urine pH Urine WBC (Auto) Urine Creatinine Urine Total Protein Fluid Total Protein Vancomycin Trough Rheumatoid Factor Complement C4 Miscellaneous Test Crossmatch 01/24/17 01/24/17 01/24/17 05:19 05:50 12:19 WBC RBC Hgb Hct MCV MCH MCHC RDW Plt Count Lymph % (Auto) Roberts % (Auto) Lymph # Roberts # Baso # Seg Neutrophils % Seg Neuts % (Manual) Lymphocytes % (Manual) Monocytes % (Manual) Eosinophils % (Manual) Basophils % (Manual) Nucleated RBC % Seg Neutrophils # Seg Neutrophils # Man Lymphocytes # (Manual) Monocytes # (Manual) Eosinophils # (Manual) Basophils # (Manual) PT INR Fibrinogen dRVVT Confirm Interp Factor V Activity POC ABG pH POC ABG pCO2 POC ABG pO2 ABG pO2 ABG HCO3 ABG Base Excess ABG Hemoglobin Oxyhemoglobin Sodium Potassium Chloride Carbon Dioxide BUN 47 H Creatinine Glucose 117 H POC Glucose 126 H 119 H Lactic Acid Calcium Ionized Calcium Phosphorus 2.30 L Magnesium 1.60 L Direct Bilirubin AST ALT Alkaline Phosphatase Lactate Dehydrogenase Troponin T C-Reactive Protein Total Protein Albumin Prealbumin Triglycerides Cholesterol LDL Cholesterol Direct HDL Cholesterol 25-OH Vitamin D Total PTH Intact Urine pH Urine WBC (Auto) Urine Creatinine Urine Total Protein Fluid Total Protein Vancomycin Trough Rheumatoid Factor Complement C4 Miscellaneous Test Crossmatch 01/24/17 01/25/17 01/25/17 17:08 00:37 04:00 WBC RBC Hgb Hct MCV MCH MCHC RDW Plt Count Lymph % (Auto) Roberts % (Auto) Lymph # Roberts # Baso # Seg Neutrophils % Seg Neuts % (Manual) Lymphocytes % (Manual) Monocytes % (Manual) Eosinophils % (Manual) Basophils % (Manual) Nucleated RBC % Seg Neutrophils # Seg Neutrophils # Man Lymphocytes # (Manual) Monocytes # (Manual) Eosinophils # (Manual) Basophils # (Manual) PT INR Fibrinogen dRVVT Confirm Interp Factor V Activity POC ABG pH POC ABG pCO2 POC ABG pO2 ABG pO2 ABG HCO3 ABG Base Excess ABG Hemoglobin Oxyhemoglobin Sodium Potassium Chloride Carbon Dioxide BUN 72 H Creatinine 1.3 H Glucose POC Glucose 127 H 110 H Lactic Acid Calcium Ionized Calcium Phosphorus Magnesium Direct Bilirubin AST ALT Alkaline Phosphatase Lactate Dehydrogenase Troponin T C-Reactive Protein Total Protein Albumin Prealbumin Triglycerides Cholesterol LDL Cholesterol Direct HDL Cholesterol 25-OH Vitamin D Total PTH Intact Urine pH Urine WBC (Auto) Urine Creatinine Urine Total Protein Fluid Total Protein Vancomycin Trough Rheumatoid Factor Complement C4 Miscellaneous Test Crossmatch 01/25/17 01/25/17 01/25/17 04:00 11:15 13:05 WBC RBC 2.49 L Hgb 6.7 L Hct 20.9 L MCV MCH 27 L MCHC RDW 18.8 H Plt Count Lymph % (Auto) Roberts % (Auto) 10.1 H Lymph # Roberts # 1.0 H Baso # Seg Neutrophils % Seg Neuts % (Manual) Lymphocytes % (Manual) Monocytes % (Manual) Eosinophils % (Manual) Basophils % (Manual) Nucleated RBC % Seg Neutrophils # Seg Neutrophils # Man Lymphocytes # (Manual) Monocytes # (Manual) Eosinophils # (Manual) Basophils # (Manual) PT INR Fibrinogen dRVVT Confirm Interp Factor V Activity POC ABG pH POC ABG pCO2 POC ABG pO2 ABG pO2 ABG HCO3 ABG Base Excess ABG Hemoglobin Oxyhemoglobin Sodium Potassium Chloride Carbon Dioxide BUN Creatinine Glucose POC Glucose 128 H Lactic Acid Calcium Ionized Calcium Phosphorus Magnesium Direct Bilirubin AST ALT Alkaline Phosphatase Lactate Dehydrogenase Troponin T C-Reactive Protein Total Protein Albumin Prealbumin Triglycerides Cholesterol LDL Cholesterol Direct HDL Cholesterol 25-OH Vitamin D Total PTH Intact Urine pH Urine WBC (Auto) Urine Creatinine Urine Total Protein Fluid Total Protein Vancomycin Trough Rheumatoid Factor Complement C4 Miscellaneous Test Crossmatch See Detail 01/25/17 01/25/17 01/26/17 18:02 23:07 01:20 WBC RBC Hgb Hct MCV MCH MCHC RDW Plt Count Lymph % (Auto) Roberts % (Auto) Lymph # Roberts # Baso # Seg Neutrophils % Seg Neuts % (Manual) Lymphocytes % (Manual) Monocytes % (Manual) Eosinophils % (Manual) Basophils % (Manual) Nucleated RBC % Seg Neutrophils # Seg Neutrophils # Man Lymphocytes # (Manual) Monocytes # (Manual) Eosinophils # (Manual) Basophils # (Manual) PT INR Fibrinogen dRVVT Confirm Interp Factor V Activity POC ABG pH POC ABG pCO2 POC ABG pO2 ABG pO2 ABG HCO3 ABG Base Excess ABG Hemoglobin Oxyhemoglobin Sodium Potassium Chloride Carbon Dioxide BUN Creatinine Glucose POC Glucose 120 H 123 H 112 H Lactic Acid Calcium Ionized Calcium Phosphorus Magnesium Direct Bilirubin AST ALT Alkaline Phosphatase Lactate Dehydrogenase Troponin T C-Reactive Protein Total Protein Albumin Prealbumin Triglycerides Cholesterol LDL Cholesterol Direct HDL Cholesterol 25-OH Vitamin D Total PTH Intact Urine pH Urine WBC (Auto) Urine Creatinine Urine Total Protein Fluid Total Protein Vancomycin Trough Rheumatoid Factor Complement C4 Miscellaneous Test Crossmatch 01/26/17 01/26/17 01/26/17 04:20 04:20 11:23 WBC 13.1 H RBC 3.28 L Hgb 9.0 L Hct 26.9 L D MCV MCH 27 L MCHC RDW 17.2 H Plt Count Lymph % (Auto) Roberts % (Auto) 9.0 H Lymph # Roberts # 1.2 H Baso # Seg Neutrophils % 73.1 H Seg Neuts % (Manual) Lymphocytes % (Manual) Monocytes % (Manual) Eosinophils % (Manual) Basophils % (Manual) Nucleated RBC % Seg Neutrophils # 9.6 H Seg Neutrophils # Man Lymphocytes # (Manual) Monocytes # (Manual) Eosinophils # (Manual) Basophils # (Manual) PT INR Fibrinogen dRVVT Confirm Interp Factor V Activity POC ABG pH POC ABG pCO2 POC ABG pO2 ABG pO2 ABG HCO3 ABG Base Excess ABG Hemoglobin Oxyhemoglobin Sodium Potassium Chloride Carbon Dioxide BUN 51 H Creatinine Glucose 117 H POC Glucose 125 H Lactic Acid Calcium Ionized Calcium Phosphorus Magnesium Direct Bilirubin AST ALT Alkaline Phosphatase Lactate Dehydrogenase Troponin T C-Reactive Protein Total Protein Albumin Prealbumin Triglycerides Cholesterol LDL Cholesterol Direct HDL Cholesterol 25-OH Vitamin D Total PTH Intact Urine pH Urine WBC (Auto) Urine Creatinine Urine Total Protein Fluid Total Protein Vancomycin Trough Rheumatoid Factor Complement C4 Miscellaneous Test Crossmatch 01/26/17 01/27/17 01/27/17 17:11 00:30 04:00 WBC RBC Hgb Hct MCV MCH MCHC RDW Plt Count Lymph % (Auto) Roberts % (Auto) Lymph # Roberts # Baso # Seg Neutrophils % Seg Neuts % (Manual) Lymphocytes % (Manual) Monocytes % (Manual) Eosinophils % (Manual) Basophils % (Manual) Nucleated RBC % Seg Neutrophils # Seg Neutrophils # Man Lymphocytes # (Manual) Monocytes # (Manual) Eosinophils # (Manual) Basophils # (Manual) PT INR Fibrinogen dRVVT Confirm Interp Factor V Activity POC ABG pH POC ABG pCO2 POC ABG pO2 ABG pO2 ABG HCO3 ABG Base Excess ABG Hemoglobin Oxyhemoglobin Sodium Potassium Chloride 97.7 L Carbon Dioxide 21 L BUN 79 H Creatinine 1.7 H D Glucose 112 H POC Glucose 133 H 135 H Lactic Acid Calcium Ionized Calcium Phosphorus 5.00 H D Magnesium Direct Bilirubin AST ALT Alkaline Phosphatase Lactate Dehydrogenase Troponin T C-Reactive Protein Total Protein Albumin Prealbumin Triglycerides Cholesterol LDL Cholesterol Direct HDL Cholesterol 25-OH Vitamin D Total PTH Intact Urine pH Urine WBC (Auto) Urine Creatinine Urine Total Protein Fluid Total Protein Vancomycin Trough Rheumatoid Factor Complement C4 Miscellaneous Test Crossmatch 01/27/17 01/27/17 01/27/17 05:12 12:18 17:25 WBC RBC Hgb Hct MCV MCH MCHC RDW Plt Count Lymph % (Auto) Roberts % (Auto) Lymph # Roberts # Baso # Seg Neutrophils % Seg Neuts % (Manual) Lymphocytes % (Manual) Monocytes % (Manual) Eosinophils % (Manual) Basophils % (Manual) Nucleated RBC % Seg Neutrophils # Seg Neutrophils # Man Lymphocytes # (Manual) Monocytes # (Manual) Eosinophils # (Manual) Basophils # (Manual) PT INR Fibrinogen dRVVT Confirm Interp Factor V Activity POC ABG pH POC ABG pCO2 POC ABG pO2 ABG pO2 ABG HCO3 ABG Base Excess ABG Hemoglobin Oxyhemoglobin Sodium Potassium Chloride Carbon Dioxide BUN Creatinine Glucose POC Glucose 116 H 153 H 152 H Lactic Acid Calcium Ionized Calcium Phosphorus Magnesium Direct Bilirubin AST ALT Alkaline Phosphatase Lactate Dehydrogenase Troponin T C-Reactive Protein Total Protein Albumin Prealbumin Triglycerides Cholesterol LDL Cholesterol Direct HDL Cholesterol 25-OH Vitamin D Total PTH Intact Urine pH Urine WBC (Auto) Urine Creatinine Urine Total Protein Fluid Total Protein Vancomycin Trough Rheumatoid Factor Complement C4 Miscellaneous Test Crossmatch 01/27/17 01/28/17 01/28/17 23:42 04:00 04:00 WBC 14.4 H RBC 2.82 L Hgb 7.4 L Hct 23.5 L MCV MCH 26 L MCHC RDW 17.6 H Plt Count Lymph % (Auto) 10.2 L Roberts % (Auto) 11.0 H Lymph # Roberts # 1.6 H Baso # Seg Neutrophils % 78.0 H Seg Neuts % (Manual) Lymphocytes % (Manual) Monocytes % (Manual) Eosinophils % (Manual) Basophils % (Manual) Nucleated RBC % Seg Neutrophils # 11.3 H Seg Neutrophils # Man Lymphocytes # (Manual) Monocytes # (Manual) Eosinophils # (Manual) Basophils # (Manual) PT INR Fibrinogen dRVVT Confirm Interp Factor V Activity POC ABG pH POC ABG pCO2 POC ABG pO2 ABG pO2 ABG HCO3 ABG Base Excess ABG Hemoglobin Oxyhemoglobin Sodium Potassium Chloride Carbon Dioxide BUN 55 H Creatinine 1.3 H Glucose 114 H POC Glucose 121 H Lactic Acid Calcium Ionized Calcium Phosphorus Magnesium Direct Bilirubin AST ALT Alkaline Phosphatase Lactate Dehydrogenase Troponin T C-Reactive Protein Total Protein Albumin 1.4 L Prealbumin Triglycerides Cholesterol LDL Cholesterol Direct HDL Cholesterol 25-OH Vitamin D Total PTH Intact Urine pH Urine WBC (Auto) Urine Creatinine Urine Total Protein Fluid Total Protein Vancomycin Trough Rheumatoid Factor Complement C4 Miscellaneous Test Crossmatch 01/28/17 01/28/17 01/29/17 04:59 12:30 00:02 WBC RBC Hgb Hct MCV MCH MCHC RDW Plt Count Lymph % (Auto) Roberts % (Auto) Lymph # Roberts # Baso # Seg Neutrophils % Seg Neuts % (Manual) Lymphocytes % (Manual) Monocytes % (Manual) Eosinophils % (Manual) Basophils % (Manual) Nucleated RBC % Seg Neutrophils # Seg Neutrophils # Man Lymphocytes # (Manual) Monocytes # (Manual) Eosinophils # (Manual) Basophils # (Manual) PT INR Fibrinogen dRVVT Confirm Interp Factor V Activity POC ABG pH POC ABG pCO2 POC ABG pO2 ABG pO2 ABG HCO3 ABG Base Excess ABG Hemoglobin Oxyhemoglobin Sodium Potassium Chloride Carbon Dioxide BUN Creatinine Glucose POC Glucose 126 H 119 H 138 H Lactic Acid Calcium Ionized Calcium Phosphorus Magnesium Direct Bilirubin AST ALT Alkaline Phosphatase Lactate Dehydrogenase Troponin T C-Reactive Protein Total Protein Albumin Prealbumin Triglycerides Cholesterol LDL Cholesterol Direct HDL Cholesterol 25-OH Vitamin D Total PTH Intact Urine pH Urine WBC (Auto) Urine Creatinine Urine Total Protein Fluid Total Protein Vancomycin Trough Rheumatoid Factor Complement C4 Miscellaneous Test Crossmatch 01/29/17 01/29/17 01/29/17 04:58 06:15 11:35 WBC RBC Hgb Hct MCV MCH MCHC RDW Plt Count Lymph % (Auto) Roberts % (Auto) Lymph # Roberts # Baso # Seg Neutrophils % Seg Neuts % (Manual) Lymphocytes % (Manual) Monocytes % (Manual) Eosinophils % (Manual) Basophils % (Manual) Nucleated RBC % Seg Neutrophils # Seg Neutrophils # Man Lymphocytes # (Manual) Monocytes # (Manual) Eosinophils # (Manual) Basophils # (Manual) PT INR Fibrinogen dRVVT Confirm Interp Factor V Activity POC ABG pH POC ABG pCO2 POC ABG pO2 ABG pO2 ABG HCO3 ABG Base Excess ABG Hemoglobin Oxyhemoglobin Sodium Potassium Chloride Carbon Dioxide BUN 85 H Creatinine 1.7 H Glucose 105 H POC Glucose 114 H 110 H Lactic Acid Calcium Ionized Calcium Phosphorus Magnesium 2.40 H Direct Bilirubin AST ALT Alkaline Phosphatase Lactate Dehydrogenase Troponin T C-Reactive Protein Total Protein Albumin Prealbumin Triglycerides Cholesterol LDL Cholesterol Direct HDL Cholesterol 25-OH Vitamin D Total PTH Intact Urine pH Urine WBC (Auto) Urine Creatinine Urine Total Protein Fluid Total Protein Vancomycin Trough Rheumatoid Factor Complement C4 Miscellaneous Test Crossmatch 01/29/17 01/29/17 01/30/17 18:24 23:41 05:12 WBC RBC Hgb Hct MCV MCH MCHC RDW Plt Count Lymph % (Auto) Roberts % (Auto) Lymph # Roberts # Baso # Seg Neutrophils % Seg Neuts % (Manual) Lymphocytes % (Manual) Monocytes % (Manual) Eosinophils % (Manual) Basophils % (Manual) Nucleated RBC % Seg Neutrophils # Seg Neutrophils # Man Lymphocytes # (Manual) Monocytes # (Manual) Eosinophils # (Manual) Basophils # (Manual) PT INR Fibrinogen dRVVT Confirm Interp Factor V Activity POC ABG pH POC ABG pCO2 POC ABG pO2 ABG pO2 ABG HCO3 ABG Base Excess ABG Hemoglobin Oxyhemoglobin Sodium Potassium Chloride Carbon Dioxide BUN Creatinine Glucose POC Glucose 109 H 134 H 109 H Lactic Acid Calcium Ionized Calcium Phosphorus Magnesium Direct Bilirubin AST ALT Alkaline Phosphatase Lactate Dehydrogenase Troponin T C-Reactive Protein Total Protein Albumin Prealbumin Triglycerides Cholesterol LDL Cholesterol Direct HDL Cholesterol 25-OH Vitamin D Total PTH Intact Urine pH Urine WBC (Auto) Urine Creatinine Urine Total Protein Fluid Total Protein Vancomycin Trough Rheumatoid Factor Complement C4 Miscellaneous Test Crossmatch 01/30/17 01/30/17 01/30/17 11:26 17:43 23:39 WBC RBC Hgb Hct MCV MCH MCHC RDW Plt Count Lymph % (Auto) Roberts % (Auto) Lymph # Roberts # Baso # Seg Neutrophils % Seg Neuts % (Manual) Lymphocytes % (Manual) Monocytes % (Manual) Eosinophils % (Manual) Basophils % (Manual) Nucleated RBC % Seg Neutrophils # Seg Neutrophils # Man Lymphocytes # (Manual) Monocytes # (Manual) Eosinophils # (Manual) Basophils # (Manual) PT INR Fibrinogen dRVVT Confirm Interp Factor V Activity POC ABG pH POC ABG pCO2 POC ABG pO2 ABG pO2 ABG HCO3 ABG Base Excess ABG Hemoglobin Oxyhemoglobin Sodium Potassium Chloride Carbon Dioxide BUN Creatinine Glucose POC Glucose 135 H 143 H 122 H Lactic Acid Calcium Ionized Calcium Phosphorus Magnesium Direct Bilirubin AST ALT Alkaline Phosphatase Lactate Dehydrogenase Troponin T C-Reactive Protein Total Protein Albumin Prealbumin Triglycerides Cholesterol LDL Cholesterol Direct HDL Cholesterol 25-OH Vitamin D Total PTH Intact Urine pH Urine WBC (Auto) Urine Creatinine Urine Total Protein Fluid Total Protein Vancomycin Trough Rheumatoid Factor Complement C4 Miscellaneous Test Crossmatch 01/31/17 01/31/17 01/31/17 04:00 05:40 11:12 WBC RBC Hgb Hct MCV MCH MCHC RDW Plt Count Lymph % (Auto) Roberts % (Auto) Lymph # Roberts # Baso # Seg Neutrophils % Seg Neuts % (Manual) Lymphocytes % (Manual) Monocytes % (Manual) Eosinophils % (Manual) Basophils % (Manual) Nucleated RBC % Seg Neutrophils # Seg Neutrophils # Man Lymphocytes # (Manual) Monocytes # (Manual) Eosinophils # (Manual) Basophils # (Manual) PT INR Fibrinogen dRVVT Confirm Interp Factor V Activity POC ABG pH POC ABG pCO2 POC ABG pO2 ABG pO2 ABG HCO3 ABG Base Excess ABG Hemoglobin Oxyhemoglobin Sodium Potassium Chloride Carbon Dioxide BUN 78 H Creatinine 1.5 H Glucose 108 H POC Glucose 123 H Lactic Acid Calcium Ionized Calcium Phosphorus Magnesium Direct Bilirubin AST ALT Alkaline Phosphatase Lactate Dehydrogenase Troponin T C-Reactive Protein 8.10 H Total Protein Albumin Prealbumin Triglycerides Cholesterol LDL Cholesterol Direct HDL Cholesterol 25-OH Vitamin D Total PTH Intact Urine pH Urine WBC (Auto) Urine Creatinine Urine Total Protein Fluid Total Protein Vancomycin Trough Rheumatoid Factor Complement C4 Miscellaneous Test Crossmatch 01/31/17 01/31/17 01/31/17 11:16 17:45 17:50 WBC RBC Hgb Hct MCV MCH MCHC RDW Plt Count Lymph % (Auto) Roberts % (Auto) Lymph # Roberts # Baso # Seg Neutrophils % Seg Neuts % (Manual) Lymphocytes % (Manual) Monocytes % (Manual) Eosinophils % (Manual) Basophils % (Manual) Nucleated RBC % Seg Neutrophils # Seg Neutrophils # Man Lymphocytes # (Manual) Monocytes # (Manual) Eosinophils # (Manual) Basophils # (Manual) PT INR Fibrinogen dRVVT Confirm Interp Factor V Activity POC ABG pH POC ABG pCO2 POC ABG pO2 ABG pO2 ABG HCO3 ABG Base Excess ABG Hemoglobin Oxyhemoglobin Sodium Potassium Chloride Carbon Dioxide BUN Creatinine Glucose POC Glucose 119 H 111 H Lactic Acid Calcium Ionized Calcium Phosphorus Magnesium Direct Bilirubin AST ALT Alkaline Phosphatase Lactate Dehydrogenase Troponin T C-Reactive Protein Total Protein Albumin Prealbumin Triglycerides Cholesterol LDL Cholesterol Direct HDL Cholesterol 25-OH Vitamin D Total PTH Intact 6.76 L Urine pH Urine WBC (Auto) Urine Creatinine Urine Total Protein Fluid Total Protein Vancomycin Trough Rheumatoid Factor Complement C4 Miscellaneous Test Crossmatch 01/31/17 02/01/17 02/01/17 23:19 05:42 09:24 WBC RBC Hgb Hct MCV MCH MCHC RDW Plt Count Lymph % (Auto) Roberts % (Auto) Lymph # Roberts # Baso # Seg Neutrophils % Seg Neuts % (Manual) Lymphocytes % (Manual) Monocytes % (Manual) Eosinophils % (Manual) Basophils % (Manual) Nucleated RBC % Seg Neutrophils # Seg Neutrophils # Man Lymphocytes # (Manual) Monocytes # (Manual) Eosinophils # (Manual) Basophils # (Manual) PT INR Fibrinogen dRVVT Confirm Interp Factor V Activity POC ABG pH POC ABG pCO2 POC ABG pO2 ABG pO2 ABG HCO3 ABG Base Excess ABG Hemoglobin Oxyhemoglobin Sodium Potassium Chloride Carbon Dioxide BUN Creatinine Glucose POC Glucose 118 H 122 H Lactic Acid Calcium Ionized Calcium Phosphorus Magnesium 2.60 H Direct Bilirubin AST ALT Alkaline Phosphatase Lactate Dehydrogenase Troponin T C-Reactive Protein Total Protein Albumin Prealbumin Triglycerides Cholesterol LDL Cholesterol Direct HDL Cholesterol 25-OH Vitamin D Total PTH Intact Urine pH Urine WBC (Auto) Urine Creatinine Urine Total Protein Fluid Total Protein Vancomycin Trough Rheumatoid Factor Complement C4 Miscellaneous Test Crossmatch 02/01/17 02/01/17 02/02/17 09:24 12:15 07:40 WBC RBC Hgb Hct MCV MCH MCHC RDW Plt Count Lymph % (Auto) Roberts % (Auto) Lymph # Roberts # Baso # Seg Neutrophils % Seg Neuts % (Manual) Lymphocytes % (Manual) Monocytes % (Manual) Eosinophils % (Manual) Basophils % (Manual) Nucleated RBC % Seg Neutrophils # Seg Neutrophils # Man Lymphocytes # (Manual) Monocytes # (Manual) Eosinophils # (Manual) Basophils # (Manual) PT INR Fibrinogen dRVVT Confirm Interp Factor V Activity POC ABG pH POC ABG pCO2 POC ABG pO2 ABG pO2 ABG HCO3 ABG Base Excess ABG Hemoglobin Oxyhemoglobin Sodium Potassium Chloride Carbon Dioxide BUN 102 H 72 H Creatinine 1.9 H 1.5 H Glucose 120 H POC Glucose 156 H Lactic Acid Calcium Ionized Calcium Phosphorus Magnesium Direct Bilirubin AST ALT Alkaline Phosphatase Lactate Dehydrogenase Troponin T C-Reactive Protein Total Protein Albumin Prealbumin Triglycerides Cholesterol LDL Cholesterol Direct HDL Cholesterol 25-OH Vitamin D Total PTH Intact Urine pH Urine WBC (Auto) Urine Creatinine Urine Total Protein Fluid Total Protein Vancomycin Trough Rheumatoid Factor Complement C4 Miscellaneous Test Crossmatch 02/02/17 02/02/17 02/03/17 10:16 12:11 00:08 WBC 12.0 H RBC 3.08 L Hgb 8.3 L Hct 25.6 L MCV MCH 27 L MCHC RDW 18.2 H Plt Count Lymph % (Auto) Roberts % (Auto) Lymph # Roberts # Baso # Seg Neutrophils % 78.4 H Seg Neuts % (Manual) Lymphocytes % (Manual) Monocytes % (Manual) Eosinophils % (Manual) Basophils % (Manual) Nucleated RBC % Seg Neutrophils # 9.4 H Seg Neutrophils # Man Lymphocytes # (Manual) Monocytes # (Manual) Eosinophils # (Manual) Basophils # (Manual) PT INR Fibrinogen dRVVT Confirm Interp Factor V Activity POC ABG pH POC ABG pCO2 POC ABG pO2 ABG pO2 ABG HCO3 ABG Base Excess ABG Hemoglobin Oxyhemoglobin Sodium Potassium Chloride Carbon Dioxide BUN Creatinine Glucose POC Glucose 110 H 120 H Lactic Acid Calcium Ionized Calcium Phosphorus Magnesium Direct Bilirubin AST ALT Alkaline Phosphatase Lactate Dehydrogenase Troponin T C-Reactive Protein Total Protein Albumin Prealbumin Triglycerides Cholesterol LDL Cholesterol Direct HDL Cholesterol 25-OH Vitamin D Total PTH Intact Urine pH Urine WBC (Auto) Urine Creatinine Urine Total Protein Fluid Total Protein Vancomycin Trough Rheumatoid Factor Complement C4 Miscellaneous Test Crossmatch 02/03/17 02/03/17 02/03/17 05:41 07:38 11:31 WBC RBC Hgb Hct MCV MCH MCHC RDW Plt Count Lymph % (Auto) Roberts % (Auto) Lymph # Roberts # Baso # Seg Neutrophils % Seg Neuts % (Manual) Lymphocytes % (Manual) Monocytes % (Manual) Eosinophils % (Manual) Basophils % (Manual) Nucleated RBC % Seg Neutrophils # Seg Neutrophils # Man Lymphocytes # (Manual) Monocytes # (Manual) Eosinophils # (Manual) Basophils # (Manual) PT INR Fibrinogen dRVVT Confirm Interp Factor V Activity POC ABG pH POC ABG pCO2 POC ABG pO2 ABG pO2 ABG HCO3 ABG Base Excess ABG Hemoglobin Oxyhemoglobin Sodium 134 L Potassium Chloride Carbon Dioxide 21 L BUN 91 H Creatinine 1.9 H Glucose 110 H POC Glucose 119 H 119 H Lactic Acid Calcium 10.3 H Ionized Calcium Phosphorus Magnesium Direct Bilirubin AST ALT Alkaline Phosphatase Lactate Dehydrogenase Troponin T C-Reactive Protein Total Protein Albumin Prealbumin Triglycerides Cholesterol LDL Cholesterol Direct HDL Cholesterol 25-OH Vitamin D Total PTH Intact Urine pH Urine WBC (Auto) Urine Creatinine Urine Total Protein Fluid Total Protein Vancomycin Trough Rheumatoid Factor Complement C4 Miscellaneous Test Crossmatch 02/03/17 02/04/17 02/04/17 17:13 04:00 05:18 WBC RBC Hgb Hct MCV MCH MCHC RDW Plt Count Lymph % (Auto) Roberts % (Auto) Lymph # Roberts # Baso # Seg Neutrophils % Seg Neuts % (Manual) Lymphocytes % (Manual) Monocytes % (Manual) Eosinophils % (Manual) Basophils % (Manual) Nucleated RBC % Seg Neutrophils # Seg Neutrophils # Man Lymphocytes # (Manual) Monocytes # (Manual) Eosinophils # (Manual) Basophils # (Manual) PT INR Fibrinogen dRVVT Confirm Interp Factor V Activity POC ABG pH POC ABG pCO2 POC ABG pO2 ABG pO2 ABG HCO3 ABG Base Excess ABG Hemoglobin Oxyhemoglobin Sodium 136 L Potassium Chloride Carbon Dioxide BUN 58 H Creatinine 1.3 H Glucose 103 H POC Glucose 133 H 132 H Lactic Acid Calcium Ionized Calcium Phosphorus 2.00 L D Magnesium 1.60 L Direct Bilirubin AST ALT Alkaline Phosphatase Lactate Dehydrogenase Troponin T C-Reactive Protein Total Protein Albumin Prealbumin Triglycerides Cholesterol LDL Cholesterol Direct HDL Cholesterol 25-OH Vitamin D Total PTH Intact Urine pH Urine WBC (Auto) Urine Creatinine Urine Total Protein Fluid Total Protein Vancomycin Trough Rheumatoid Factor Complement C4 Miscellaneous Test Crossmatch 02/05/17 02/05/17 02/05/17 00:01 04:00 06:42 WBC RBC Hgb Hct MCV MCH MCHC RDW Plt Count Lymph % (Auto) Roberts % (Auto) Lymph # Roberts # Baso # Seg Neutrophils % Seg Neuts % (Manual) Lymphocytes % (Manual) Monocytes % (Manual) Eosinophils % (Manual) Basophils % (Manual) Nucleated RBC % Seg Neutrophils # Seg Neutrophils # Man Lymphocytes # (Manual) Monocytes # (Manual) Eosinophils # (Manual) Basophils # (Manual) PT INR Fibrinogen dRVVT Confirm Interp Factor V Activity POC ABG pH POC ABG pCO2 POC ABG pO2 ABG pO2 ABG HCO3 ABG Base Excess ABG Hemoglobin Oxyhemoglobin Sodium Potassium Chloride Carbon Dioxide BUN 83 H Creatinine 1.8 H Glucose POC Glucose 119 H 110 H Lactic Acid Calcium 10.7 H Ionized Calcium Phosphorus Magnesium Direct Bilirubin AST ALT Alkaline Phosphatase Lactate Dehydrogenase Troponin T C-Reactive Protein Total Protein Albumin Prealbumin Triglycerides Cholesterol LDL Cholesterol Direct HDL Cholesterol 25-OH Vitamin D Total PTH Intact Urine pH Urine WBC (Auto) Urine Creatinine Urine Total Protein Fluid Total Protein Vancomycin Trough Rheumatoid Factor Complement C4 Miscellaneous Test Crossmatch 02/05/17 02/05/17 02/05/17 09:59 11:47 23:44 WBC RBC 2.69 L Hgb 7.2 L Hct 22.5 L MCV MCH 27 L MCHC RDW 18.6 H Plt Count Lymph % (Auto) Roberts % (Auto) 9.2 H Lymph # Roberts # 0.9 H Baso # Seg Neutrophils % Seg Neuts % (Manual) Lymphocytes % (Manual) Monocytes % (Manual) Eosinophils % (Manual) Basophils % (Manual) Nucleated RBC % Seg Neutrophils # Seg Neutrophils # Man Lymphocytes # (Manual) Monocytes # (Manual) Eosinophils # (Manual) Basophils # (Manual) PT INR Fibrinogen dRVVT Confirm Interp Factor V Activity POC ABG pH POC ABG pCO2 POC ABG pO2 ABG pO2 ABG HCO3 ABG Base Excess ABG Hemoglobin Oxyhemoglobin Sodium Potassium Chloride Carbon Dioxide BUN Creatinine Glucose POC Glucose 130 H 123 H Lactic Acid Calcium Ionized Calcium Phosphorus Magnesium Direct Bilirubin AST ALT Alkaline Phosphatase Lactate Dehydrogenase Troponin T C-Reactive Protein Total Protein Albumin Prealbumin Triglycerides Cholesterol LDL Cholesterol Direct HDL Cholesterol 25-OH Vitamin D Total PTH Intact Urine pH Urine WBC (Auto) Urine Creatinine Urine Total Protein Fluid Total Protein Vancomycin Trough Rheumatoid Factor Complement C4 Miscellaneous Test Crossmatch 02/06/17 02/06/17 02/06/17 04:45 05:58 12:01 WBC RBC Hgb Hct MCV MCH MCHC RDW Plt Count Lymph % (Auto) Roberts % (Auto) Lymph # Roberts # Baso # Seg Neutrophils % Seg Neuts % (Manual) Lymphocytes % (Manual) Monocytes % (Manual) Eosinophils % (Manual) Basophils % (Manual) Nucleated RBC % Seg Neutrophils # Seg Neutrophils # Man Lymphocytes # (Manual) Monocytes # (Manual) Eosinophils # (Manual) Basophils # (Manual) PT INR Fibrinogen dRVVT Confirm Interp Factor V Activity POC ABG pH POC ABG pCO2 POC ABG pO2 ABG pO2 ABG HCO3 ABG Base Excess ABG Hemoglobin Oxyhemoglobin Sodium Potassium Chloride Carbon Dioxide BUN 101 H Creatinine 2.0 H Glucose 102 H POC Glucose 115 H 132 H Lactic Acid Calcium 10.6 H Ionized Calcium Phosphorus Magnesium Direct Bilirubin AST ALT Alkaline Phosphatase 199 H Lactate Dehydrogenase Troponin T C-Reactive Protein Total Protein Albumin 1.4 L Prealbumin Triglycerides Cholesterol LDL Cholesterol Direct HDL Cholesterol 25-OH Vitamin D Total PTH Intact Urine pH Urine WBC (Auto) Urine Creatinine Urine Total Protein Fluid Total Protein Vancomycin Trough Rheumatoid Factor Complement C4 Miscellaneous Test Crossmatch 02/06/17 02/06/17 02/07/17 17:41 23:32 05:04 WBC RBC Hgb Hct MCV MCH MCHC RDW Plt Count Lymph % (Auto) Roberts % (Auto) Lymph # Roberts # Baso # Seg Neutrophils % Seg Neuts % (Manual) Lymphocytes % (Manual) Monocytes % (Manual) Eosinophils % (Manual) Basophils % (Manual) Nucleated RBC % Seg Neutrophils # Seg Neutrophils # Man Lymphocytes # (Manual) Monocytes # (Manual) Eosinophils # (Manual) Basophils # (Manual) PT INR Fibrinogen dRVVT Confirm Interp Factor V Activity POC ABG pH POC ABG pCO2 POC ABG pO2 ABG pO2 ABG HCO3 ABG Base Excess ABG Hemoglobin Oxyhemoglobin Sodium Potassium Chloride Carbon Dioxide BUN Creatinine Glucose POC Glucose 134 H 128 H 119 H Lactic Acid Calcium Ionized Calcium Phosphorus Magnesium Direct Bilirubin AST ALT Alkaline Phosphatase Lactate Dehydrogenase Troponin T C-Reactive Protein Total Protein Albumin Prealbumin Triglycerides Cholesterol LDL Cholesterol Direct HDL Cholesterol 25-OH Vitamin D Total PTH Intact Urine pH Urine WBC (Auto) Urine Creatinine Urine Total Protein Fluid Total Protein Vancomycin Trough Rheumatoid Factor Complement C4 Miscellaneous Test Crossmatch 02/07/17 02/07/17 02/07/17 06:30 11:20 17:13 WBC RBC Hgb Hct MCV MCH MCHC RDW Plt Count Lymph % (Auto) Roberts % (Auto) Lymph # Roberts # Baso # Seg Neutrophils % Seg Neuts % (Manual) Lymphocytes % (Manual) Monocytes % (Manual) Eosinophils % (Manual) Basophils % (Manual) Nucleated RBC % Seg Neutrophils # Seg Neutrophils # Man Lymphocytes # (Manual) Monocytes # (Manual) Eosinophils # (Manual) Basophils # (Manual) PT INR Fibrinogen dRVVT Confirm Interp Factor V Activity POC ABG pH POC ABG pCO2 POC ABG pO2 ABG pO2 ABG HCO3 ABG Base Excess ABG Hemoglobin Oxyhemoglobin Sodium Potassium 3.4 L Chloride Carbon Dioxide BUN 69 H Creatinine 1.5 H Glucose 105 H POC Glucose 117 H 110 H Lactic Acid Calcium Ionized Calcium Phosphorus Magnesium 1.50 L Direct Bilirubin AST ALT Alkaline Phosphatase Lactate Dehydrogenase Troponin T C-Reactive Protein Total Protein Albumin Prealbumin Triglycerides Cholesterol LDL Cholesterol Direct HDL Cholesterol 25-OH Vitamin D Total PTH Intact Urine pH Urine WBC (Auto) Urine Creatinine Urine Total Protein Fluid Total Protein Vancomycin Trough Rheumatoid Factor Complement C4 Miscellaneous Test Crossmatch 02/07/17 02/08/17 02/08/17 20:47 04:00 11:43 WBC RBC Hgb Hct MCV MCH MCHC RDW Plt Count Lymph % (Auto) Roberts % (Auto) Lymph # Roberts # Baso # Seg Neutrophils % Seg Neuts % (Manual) Lymphocytes % (Manual) Monocytes % (Manual) Eosinophils % (Manual) Basophils % (Manual) Nucleated RBC % Seg Neutrophils # Seg Neutrophils # Man Lymphocytes # (Manual) Monocytes # (Manual) Eosinophils # (Manual) Basophils # (Manual) PT INR Fibrinogen dRVVT Confirm Interp Factor V Activity POC ABG pH POC ABG pCO2 POC ABG pO2 ABG pO2 ABG HCO3 ABG Base Excess ABG Hemoglobin Oxyhemoglobin Sodium Potassium Chloride Carbon Dioxide BUN 86 H Creatinine 1.7 H Glucose POC Glucose 115 H 122 H Lactic Acid Calcium Ionized Calcium Phosphorus Magnesium 1.60 L Direct Bilirubin AST ALT Alkaline Phosphatase Lactate Dehydrogenase Troponin T C-Reactive Protein Total Protein Albumin Prealbumin Triglycerides Cholesterol LDL Cholesterol Direct HDL Cholesterol 25-OH Vitamin D Total PTH Intact Urine pH Urine WBC (Auto) Urine Creatinine Urine Total Protein Fluid Total Protein Vancomycin Trough Rheumatoid Factor Complement C4 Miscellaneous Test Crossmatch 02/08/17 02/09/17 02/09/17 17:36 05:44 11:30 WBC RBC Hgb Hct MCV MCH MCHC RDW Plt Count Lymph % (Auto) Roberts % (Auto) Lymph # Roberts # Baso # Seg Neutrophils % Seg Neuts % (Manual) Lymphocytes % (Manual) Monocytes % (Manual) Eosinophils % (Manual) Basophils % (Manual) Nucleated RBC % Seg Neutrophils # Seg Neutrophils # Man Lymphocytes # (Manual) Monocytes # (Manual) Eosinophils # (Manual) Basophils # (Manual) PT INR Fibrinogen dRVVT Confirm Interp Factor V Activity POC ABG pH POC ABG pCO2 POC ABG pO2 ABG pO2 ABG HCO3 ABG Base Excess ABG Hemoglobin Oxyhemoglobin Sodium Potassium Chloride Carbon Dioxide BUN Creatinine Glucose POC Glucose 125 H 117 H 120 H Lactic Acid Calcium Ionized Calcium Phosphorus Magnesium Direct Bilirubin AST ALT Alkaline Phosphatase Lactate Dehydrogenase Troponin T C-Reactive Protein Total Protein Albumin Prealbumin Triglycerides Cholesterol LDL Cholesterol Direct HDL Cholesterol 25-OH Vitamin D Total PTH Intact Urine pH Urine WBC (Auto) Urine Creatinine Urine Total Protein Fluid Total Protein Vancomycin Trough Rheumatoid Factor Complement C4 Miscellaneous Test Crossmatch 02/09/17 02/10/17 02/10/17 23:45 05:45 05:50 WBC RBC Hgb Hct MCV MCH MCHC RDW Plt Count Lymph % (Auto) Roberts % (Auto) Lymph # Roberts # Baso # Seg Neutrophils % Seg Neuts % (Manual) Lymphocytes % (Manual) Monocytes % (Manual) Eosinophils % (Manual) Basophils % (Manual) Nucleated RBC % Seg Neutrophils # Seg Neutrophils # Man Lymphocytes # (Manual) Monocytes # (Manual) Eosinophils # (Manual) Basophils # (Manual) PT INR Fibrinogen dRVVT Confirm Interp Factor V Activity POC ABG pH POC ABG pCO2 POC ABG pO2 ABG pO2 ABG HCO3 ABG Base Excess ABG Hemoglobin Oxyhemoglobin Sodium Potassium Chloride Carbon Dioxide BUN 85 H Creatinine 1.8 H Glucose 109 H POC Glucose 114 H 189 H Lactic Acid Calcium Ionized Calcium Phosphorus Magnesium 2.50 H Direct Bilirubin AST ALT Alkaline Phosphatase Lactate Dehydrogenase Troponin T C-Reactive Protein Total Protein Albumin Prealbumin Triglycerides Cholesterol LDL Cholesterol Direct HDL Cholesterol 25-OH Vitamin D Total PTH Intact Urine pH Urine WBC (Auto) Urine Creatinine Urine Total Protein Fluid Total Protein Vancomycin Trough Rheumatoid Factor Complement C4 Miscellaneous Test Crossmatch 02/10/17 02/10/17 02/10/17 05:51 11:55 17:42 WBC RBC Hgb Hct MCV MCH MCHC RDW Plt Count Lymph % (Auto) Roberts % (Auto) Lymph # Roberts # Baso # Seg Neutrophils % Seg Neuts % (Manual) Lymphocytes % (Manual) Monocytes % (Manual) Eosinophils % (Manual) Basophils % (Manual) Nucleated RBC % Seg Neutrophils # Seg Neutrophils # Man Lymphocytes # (Manual) Monocytes # (Manual) Eosinophils # (Manual) Basophils # (Manual) PT INR Fibrinogen dRVVT Confirm Interp Factor V Activity POC ABG pH POC ABG pCO2 POC ABG pO2 ABG pO2 ABG HCO3 ABG Base Excess ABG Hemoglobin Oxyhemoglobin Sodium Potassium Chloride Carbon Dioxide BUN Creatinine Glucose POC Glucose 106 H 146 H 132 H Lactic Acid Calcium Ionized Calcium Phosphorus Magnesium Direct Bilirubin AST ALT Alkaline Phosphatase Lactate Dehydrogenase Troponin T C-Reactive Protein Total Protein Albumin Prealbumin Triglycerides Cholesterol LDL Cholesterol Direct HDL Cholesterol 25-OH Vitamin D Total PTH Intact Urine pH Urine WBC (Auto) Urine Creatinine Urine Total Protein Fluid Total Protein Vancomycin Trough Rheumatoid Factor Complement C4 Miscellaneous Test Crossmatch 02/10/17 02/11/17 02/11/17 23:43 04:08 05:34 WBC RBC Hgb Hct MCV MCH MCHC RDW Plt Count Lymph % (Auto) Roberts % (Auto) Lymph # Roberts # Baso # Seg Neutrophils % Seg Neuts % (Manual) Lymphocytes % (Manual) Monocytes % (Manual) Eosinophils % (Manual) Basophils % (Manual) Nucleated RBC % Seg Neutrophils # Seg Neutrophils # Man Lymphocytes # (Manual) Monocytes # (Manual) Eosinophils # (Manual) Basophils # (Manual) PT INR Fibrinogen dRVVT Confirm Interp Factor V Activity POC ABG pH POC ABG pCO2 POC ABG pO2 ABG pO2 ABG HCO3 ABG Base Excess ABG Hemoglobin Oxyhemoglobin Sodium 136 L Potassium Chloride Carbon Dioxide BUN 65 H Creatinine 1.7 H Glucose 105 H POC Glucose 130 H 113 H Lactic Acid Calcium Ionized Calcium Phosphorus Magnesium Direct Bilirubin AST ALT Alkaline Phosphatase Lactate Dehydrogenase Troponin T C-Reactive Protein Total Protein Albumin Prealbumin Triglycerides Cholesterol LDL Cholesterol Direct HDL Cholesterol 25-OH Vitamin D Total PTH Intact Urine pH Urine WBC (Auto) Urine Creatinine Urine Total Protein Fluid Total Protein Vancomycin Trough Rheumatoid Factor Complement C4 Miscellaneous Test Crossmatch 02/11/17 02/11/17 02/12/17 11:56 23:18 06:19 WBC RBC Hgb Hct MCV MCH MCHC RDW Plt Count Lymph % (Auto) Roberts % (Auto) Lymph # Roberts # Baso # Seg Neutrophils % Seg Neuts % (Manual) Lymphocytes % (Manual) Monocytes % (Manual) Eosinophils % (Manual) Basophils % (Manual) Nucleated RBC % Seg Neutrophils # Seg Neutrophils # Man Lymphocytes # (Manual) Monocytes # (Manual) Eosinophils # (Manual) Basophils # (Manual) PT INR Fibrinogen dRVVT Confirm Interp Factor V Activity POC ABG pH POC ABG pCO2 POC ABG pO2 ABG pO2 ABG HCO3 ABG Base Excess ABG Hemoglobin Oxyhemoglobin Sodium 136 L Potassium Chloride 97.1 L Carbon Dioxide BUN 93 H Creatinine 2.4 H Glucose POC Glucose 126 H 119 H Lactic Acid Calcium 11.0 H Ionized Calcium Phosphorus Magnesium Direct Bilirubin AST ALT Alkaline Phosphatase Lactate Dehydrogenase Troponin T C-Reactive Protein Total Protein Albumin Prealbumin Triglycerides Cholesterol LDL Cholesterol Direct HDL Cholesterol 25-OH Vitamin D Total PTH Intact Urine pH Urine WBC (Auto) Urine Creatinine Urine Total Protein Fluid Total Protein Vancomycin Trough Rheumatoid Factor Complement C4 Miscellaneous Test Crossmatch 02/12/17 02/12/17 02/12/17 08:00 10:25 11:42 WBC 15.4 H RBC 2.63 L Hgb 6.9 L Hct 22.6 L MCV MCH 26 L MCHC RDW 20.5 H Plt Count Lymph % (Auto) Roberts % (Auto) Lymph # Roberts # Baso # Seg Neutrophils % Seg Neuts % (Manual) Lymphocytes % (Manual) Monocytes % (Manual) Eosinophils % (Manual) Basophils % (Manual) Nucleated RBC % Seg Neutrophils # Seg Neutrophils # Man Lymphocytes # (Manual) Monocytes # (Manual) Eosinophils # (Manual) Basophils # (Manual) PT INR Fibrinogen dRVVT Confirm Interp Factor V Activity POC ABG pH POC ABG pCO2 POC ABG pO2 ABG pO2 ABG HCO3 ABG Base Excess ABG Hemoglobin Oxyhemoglobin Sodium Potassium Chloride Carbon Dioxide BUN Creatinine Glucose POC Glucose 142 H Lactic Acid Calcium Ionized Calcium Phosphorus Magnesium Direct Bilirubin AST ALT Alkaline Phosphatase Lactate Dehydrogenase Troponin T C-Reactive Protein Total Protein Albumin Prealbumin Triglycerides Cholesterol LDL Cholesterol Direct HDL Cholesterol 25-OH Vitamin D Total PTH Intact Urine pH Urine WBC (Auto) Urine Creatinine Urine Total Protein Fluid Total Protein Vancomycin Trough Rheumatoid Factor Complement C4 Miscellaneous Test Crossmatch See Detail 02/12/17 02/13/17 02/13/17 18:04 00:04 05:00 WBC RBC Hgb Hct MCV MCH MCHC RDW Plt Count Lymph % (Auto) Roberts % (Auto) Lymph # Roberts # Baso # Seg Neutrophils % Seg Neuts % (Manual) Lymphocytes % (Manual) Monocytes % (Manual) Eosinophils % (Manual) Basophils % (Manual) Nucleated RBC % Seg Neutrophils # Seg Neutrophils # Man Lymphocytes # (Manual) Monocytes # (Manual) Eosinophils # (Manual) Basophils # (Manual) PT INR Fibrinogen dRVVT Confirm Interp Factor V Activity POC ABG pH POC ABG pCO2 POC ABG pO2 ABG pO2 ABG HCO3 ABG Base Excess ABG Hemoglobin Oxyhemoglobin Sodium 134 L Potassium Chloride 96.1 L Carbon Dioxide 20 L BUN 125 H Creatinine 3.0 H Glucose 111 H POC Glucose 135 H 109 H Lactic Acid Calcium 11.3 H Ionized Calcium Phosphorus Magnesium Direct Bilirubin AST ALT Alkaline Phosphatase Lactate Dehydrogenase Troponin T C-Reactive Protein Total Protein Albumin Prealbumin Triglycerides Cholesterol LDL Cholesterol Direct HDL Cholesterol 25-OH Vitamin D Total PTH Intact Urine pH Urine WBC (Auto) Urine Creatinine Urine Total Protein Fluid Total Protein Vancomycin Trough Rheumatoid Factor Complement C4 Miscellaneous Test Crossmatch 02/13/17 02/13/17 02/13/17 05:00 05:28 12:03 WBC 11.9 H RBC 2.92 L Hgb 7.8 L Hct 25.2 L MCV MCH 27 L MCHC RDW 19.3 H Plt Count Lymph % (Auto) Roberts % (Auto) Lymph # Roberts # Baso # Seg Neutrophils % Seg Neuts % (Manual) Lymphocytes % (Manual) Monocytes % (Manual) Eosinophils % (Manual) Basophils % (Manual) Nucleated RBC % Seg Neutrophils # Seg Neutrophils # Man Lymphocytes # (Manual) Monocytes # (Manual) Eosinophils # (Manual) Basophils # (Manual) PT INR Fibrinogen dRVVT Confirm Interp Factor V Activity POC ABG pH POC ABG pCO2 POC ABG pO2 ABG pO2 ABG HCO3 ABG Base Excess ABG Hemoglobin Oxyhemoglobin Sodium Potassium Chloride Carbon Dioxide BUN Creatinine Glucose POC Glucose 124 H 160 H Lactic Acid Calcium Ionized Calcium Phosphorus Magnesium Direct Bilirubin AST ALT Alkaline Phosphatase Lactate Dehydrogenase Troponin T C-Reactive Protein Total Protein Albumin Prealbumin Triglycerides Cholesterol LDL Cholesterol Direct HDL Cholesterol 25-OH Vitamin D Total PTH Intact Urine pH Urine WBC (Auto) Urine Creatinine Urine Total Protein Fluid Total Protein Vancomycin Trough Rheumatoid Factor Complement C4 Miscellaneous Test Crossmatch 02/13/17 02/14/17 02/14/17 18:09 06:16 08:08 WBC 15.2 H RBC 2.97 L Hgb 8.1 L Hct 26.3 L MCV MCH MCHC RDW 19.3 H Plt Count Lymph % (Auto) Roberts % (Auto) Lymph # Roberts # Baso # Seg Neutrophils % Seg Neuts % (Manual) Lymphocytes % (Manual) Monocytes % (Manual) Eosinophils % (Manual) Basophils % (Manual) Nucleated RBC % Seg Neutrophils # Seg Neutrophils # Man Lymphocytes # (Manual) Monocytes # (Manual) Eosinophils # (Manual) Basophils # (Manual) PT INR Fibrinogen dRVVT Confirm Interp Factor V Activity POC ABG pH POC ABG pCO2 POC ABG pO2 ABG pO2 ABG HCO3 ABG Base Excess ABG Hemoglobin Oxyhemoglobin Sodium Potassium Chloride Carbon Dioxide BUN Creatinine Glucose POC Glucose 110 H 112 H Lactic Acid Calcium Ionized Calcium Phosphorus Magnesium Direct Bilirubin AST ALT Alkaline Phosphatase Lactate Dehydrogenase Troponin T C-Reactive Protein Total Protein Albumin Prealbumin Triglycerides Cholesterol LDL Cholesterol Direct HDL Cholesterol 25-OH Vitamin D Total PTH Intact Urine pH Urine WBC (Auto) Urine Creatinine Urine Total Protein Fluid Total Protein Vancomycin Trough Rheumatoid Factor Complement C4 Miscellaneous Test Crossmatch 02/14/17 02/14/17 02/15/17 08:08 17:41 04:15 WBC RBC Hgb Hct MCV MCH MCHC RDW Plt Count Lymph % (Auto) Roberts % (Auto) Lymph # Roberts # Baso # Seg Neutrophils % Seg Neuts % (Manual) Lymphocytes % (Manual) Monocytes % (Manual) Eosinophils % (Manual) Basophils % (Manual) Nucleated RBC % Seg Neutrophils # Seg Neutrophils # Man Lymphocytes # (Manual) Monocytes # (Manual) Eosinophils # (Manual) Basophils # (Manual) PT INR Fibrinogen dRVVT Confirm Interp Factor V Activity POC ABG pH POC ABG pCO2 POC ABG pO2 ABG pO2 ABG HCO3 ABG Base Excess ABG Hemoglobin Oxyhemoglobin Sodium Potassium Chloride Carbon Dioxide 18 L 21 L BUN 79 H 113 H Creatinine 2.1 H 2.8 H Glucose POC Glucose 118 H Lactic Acid Calcium 10.7 H Ionized Calcium Phosphorus 1.70 L D Magnesium 1.60 L Direct Bilirubin AST ALT Alkaline Phosphatase Lactate Dehydrogenase Troponin T C-Reactive Protein Total Protein Albumin Prealbumin Triglycerides Cholesterol LDL Cholesterol Direct HDL Cholesterol 25-OH Vitamin D Total PTH Intact Urine pH Urine WBC (Auto) Urine Creatinine Urine Total Protein Fluid Total Protein Vancomycin Trough Rheumatoid Factor Complement C4 Miscellaneous Test Crossmatch 02/15/17 02/15/17 02/15/17 06:06 11:31 17:52 WBC RBC Hgb Hct MCV MCH MCHC RDW Plt Count Lymph % (Auto) Roberts % (Auto) Lymph # Roberts # Baso # Seg Neutrophils % Seg Neuts % (Manual) Lymphocytes % (Manual) Monocytes % (Manual) Eosinophils % (Manual) Basophils % (Manual) Nucleated RBC % Seg Neutrophils # Seg Neutrophils # Man Lymphocytes # (Manual) Monocytes # (Manual) Eosinophils # (Manual) Basophils # (Manual) PT INR Fibrinogen dRVVT Confirm Interp Factor V Activity POC ABG pH POC ABG pCO2 POC ABG pO2 ABG pO2 ABG HCO3 ABG Base Excess ABG Hemoglobin Oxyhemoglobin Sodium Potassium Chloride Carbon Dioxide BUN Creatinine Glucose POC Glucose 115 H 129 H 201 H Lactic Acid Calcium Ionized Calcium Phosphorus Magnesium Direct Bilirubin AST ALT Alkaline Phosphatase Lactate Dehydrogenase Troponin T C-Reactive Protein Total Protein Albumin Prealbumin Triglycerides Cholesterol LDL Cholesterol Direct HDL Cholesterol 25-OH Vitamin D Total PTH Intact Urine pH Urine WBC (Auto) Urine Creatinine Urine Total Protein Fluid Total Protein Vancomycin Trough Rheumatoid Factor Complement C4 Miscellaneous Test Crossmatch 02/15/17 02/15/17 02/15/17 19:08 19:08 19:08 WBC RBC Hgb Hct MCV MCH MCHC RDW Plt Count Lymph % (Auto) Roberts % (Auto) Lymph # Roberts # Baso # Seg Neutrophils % Seg Neuts % (Manual) Lymphocytes % (Manual) Monocytes % (Manual) Eosinophils % (Manual) Basophils % (Manual) Nucleated RBC % Seg Neutrophils # Seg Neutrophils # Man Lymphocytes # (Manual) Monocytes # (Manual) Eosinophils # (Manual) Basophils # (Manual) PT INR Fibrinogen dRVVT Confirm Interp Factor V Activity POC ABG pH POC ABG pCO2 POC ABG pO2 ABG pO2 ABG HCO3 ABG Base Excess ABG Hemoglobin Oxyhemoglobin Sodium Potassium Chloride Carbon Dioxide BUN Creatinine Glucose POC Glucose Lactic Acid Calcium Ionized Calcium 6.0 H Phosphorus Magnesium Direct Bilirubin AST ALT Alkaline Phosphatase Lactate Dehydrogenase Troponin T C-Reactive Protein Total Protein Albumin Prealbumin Triglycerides Cholesterol LDL Cholesterol Direct HDL Cholesterol 25-OH Vitamin D Total 13 L PTH Intact 10.88 L Urine pH Urine WBC (Auto) Urine Creatinine Urine Total Protein Fluid Total Protein Vancomycin Trough Rheumatoid Factor Complement C4 Miscellaneous Test Crossmatch 02/16/17 02/16/17 02/16/17 05:12 06:00 12:39 WBC RBC Hgb Hct MCV MCH MCHC RDW Plt Count Lymph % (Auto) Roberts % (Auto) Lymph # Roberts # Baso # Seg Neutrophils % Seg Neuts % (Manual) Lymphocytes % (Manual) Monocytes % (Manual) Eosinophils % (Manual) Basophils % (Manual) Nucleated RBC % Seg Neutrophils # Seg Neutrophils # Man Lymphocytes # (Manual) Monocytes # (Manual) Eosinophils # (Manual) Basophils # (Manual) PT INR Fibrinogen dRVVT Confirm Interp Factor V Activity POC ABG pH POC ABG pCO2 POC ABG pO2 ABG pO2 ABG HCO3 ABG Base Excess ABG Hemoglobin Oxyhemoglobin Sodium Potassium Chloride Carbon Dioxide BUN 74 H Creatinine 1.7 H Glucose 102 H POC Glucose 125 H 109 H Lactic Acid Calcium Ionized Calcium Phosphorus 2.10 L D Magnesium Direct Bilirubin AST ALT Alkaline Phosphatase Lactate Dehydrogenase Troponin T C-Reactive Protein Total Protein Albumin Prealbumin Triglycerides Cholesterol LDL Cholesterol Direct HDL Cholesterol 25-OH Vitamin D Total PTH Intact Urine pH Urine WBC (Auto) Urine Creatinine Urine Total Protein Fluid Total Protein Vancomycin Trough Rheumatoid Factor Complement C4 Miscellaneous Test Crossmatch 02/16/17 02/16/17 02/17/17 17:31 23:57 05:30 WBC RBC Hgb Hct MCV MCH MCHC RDW Plt Count Lymph % (Auto) Roberts % (Auto) Lymph # Roberts # Baso # Seg Neutrophils % Seg Neuts % (Manual) Lymphocytes % (Manual) Monocytes % (Manual) Eosinophils % (Manual) Basophils % (Manual) Nucleated RBC % Seg Neutrophils # Seg Neutrophils # Man Lymphocytes # (Manual) Monocytes # (Manual) Eosinophils # (Manual) Basophils # (Manual) PT INR Fibrinogen dRVVT Confirm Interp Factor V Activity POC ABG pH POC ABG pCO2 POC ABG pO2 ABG pO2 ABG HCO3 ABG Base Excess ABG Hemoglobin Oxyhemoglobin Sodium Potassium Chloride Carbon Dioxide BUN Creatinine Glucose POC Glucose 106 H 127 H 122 H Lactic Acid Calcium Ionized Calcium Phosphorus Magnesium Direct Bilirubin AST ALT Alkaline Phosphatase Lactate Dehydrogenase Troponin T C-Reactive Protein Total Protein Albumin Prealbumin Triglycerides Cholesterol LDL Cholesterol Direct HDL Cholesterol 25-OH Vitamin D Total PTH Intact Urine pH Urine WBC (Auto) Urine Creatinine Urine Total Protein Fluid Total Protein Vancomycin Trough Rheumatoid Factor Complement C4 Miscellaneous Test Crossmatch 02/17/17 02/17/17 02/17/17 06:00 12:17 17:57 WBC RBC Hgb Hct MCV MCH MCHC RDW Plt Count Lymph % (Auto) Roberts % (Auto) Lymph # Roberts # Baso # Seg Neutrophils % Seg Neuts % (Manual) Lymphocytes % (Manual) Monocytes % (Manual) Eosinophils % (Manual) Basophils % (Manual) Nucleated RBC % Seg Neutrophils # Seg Neutrophils # Man Lymphocytes # (Manual) Monocytes # (Manual) Eosinophils # (Manual) Basophils # (Manual) PT INR Fibrinogen dRVVT Confirm Interp Factor V Activity POC ABG pH POC ABG pCO2 POC ABG pO2 ABG pO2 ABG HCO3 ABG Base Excess ABG Hemoglobin Oxyhemoglobin Sodium Potassium Chloride Carbon Dioxide BUN 94 H Creatinine 2.3 H Glucose 106 H POC Glucose 173 H 140 H Lactic Acid Calcium Ionized Calcium Phosphorus Magnesium Direct Bilirubin AST ALT Alkaline Phosphatase Lactate Dehydrogenase Troponin T C-Reactive Protein Total Protein Albumin Prealbumin Triglycerides Cholesterol LDL Cholesterol Direct HDL Cholesterol 25-OH Vitamin D Total PTH Intact Urine pH Urine WBC (Auto) Urine Creatinine Urine Total Protein Fluid Total Protein Vancomycin Trough Rheumatoid Factor Complement C4 Miscellaneous Test Crossmatch 02/18/17 02/18/17 02/18/17 00:20 05:30 06:14 WBC RBC Hgb Hct MCV MCH MCHC RDW Plt Count Lymph % (Auto) Roberts % (Auto) Lymph # Roberts # Baso # Seg Neutrophils % Seg Neuts % (Manual) Lymphocytes % (Manual) Monocytes % (Manual) Eosinophils % (Manual) Basophils % (Manual) Nucleated RBC % Seg Neutrophils # Seg Neutrophils # Man Lymphocytes # (Manual) Monocytes # (Manual) Eosinophils # (Manual) Basophils # (Manual) PT INR Fibrinogen dRVVT Confirm Interp Factor V Activity POC ABG pH POC ABG pCO2 POC ABG pO2 ABG pO2 ABG HCO3 ABG Base Excess ABG Hemoglobin Oxyhemoglobin Sodium 136 L Potassium Chloride 97.5 L Carbon Dioxide BUN 73 H Creatinine 1.9 H Glucose POC Glucose 132 H 106 H Lactic Acid Calcium Ionized Calcium Phosphorus Magnesium Direct Bilirubin AST ALT Alkaline Phosphatase Lactate Dehydrogenase Troponin T C-Reactive Protein Total Protein Albumin Prealbumin Triglycerides Cholesterol LDL Cholesterol Direct HDL Cholesterol 25-OH Vitamin D Total PTH Intact Urine pH Urine WBC (Auto) Urine Creatinine Urine Total Protein Fluid Total Protein Vancomycin Trough Rheumatoid Factor Complement C4 Miscellaneous Test Crossmatch 02/18/17 02/18/17 02/18/17 09:51 11:32 17:59 WBC 13.1 H RBC 2.77 L Hgb 7.6 L Hct 23.9 L MCV MCH MCHC RDW 19.0 H Plt Count Lymph % (Auto) Roberts % (Auto) 11.1 H Lymph # Roberts # 1.5 H Baso # Seg Neutrophils % Seg Neuts % (Manual) Lymphocytes % (Manual) Monocytes % (Manual) Eosinophils % (Manual) Basophils % (Manual) Nucleated RBC % Seg Neutrophils # 9.1 H Seg Neutrophils # Man Lymphocytes # (Manual) Monocytes # (Manual) Eosinophils # (Manual) Basophils # (Manual) PT INR Fibrinogen dRVVT Confirm Interp Factor V Activity POC ABG pH POC ABG pCO2 POC ABG pO2 ABG pO2 ABG HCO3 ABG Base Excess ABG Hemoglobin Oxyhemoglobin Sodium Potassium Chloride Carbon Dioxide BUN Creatinine Glucose POC Glucose 123 H 119 H Lactic Acid Calcium Ionized Calcium Phosphorus Magnesium Direct Bilirubin AST ALT Alkaline Phosphatase Lactate Dehydrogenase Troponin T C-Reactive Protein Total Protein Albumin Prealbumin Triglycerides Cholesterol LDL Cholesterol Direct HDL Cholesterol 25-OH Vitamin D Total PTH Intact Urine pH Urine WBC (Auto) Urine Creatinine Urine Total Protein Fluid Total Protein Vancomycin Trough Rheumatoid Factor Complement C4 Miscellaneous Test Crossmatch 02/18/17 02/19/17 02/19/17 23:47 05:36 09:45 WBC RBC Hgb Hct MCV MCH 27 L MCHC RDW 19.2 H Plt Count Lymph % (Auto) Roberts % (Auto) Lymph # Roberts # Baso # Seg Neutrophils % Seg Neuts % (Manual) Lymphocytes % (Manual) Monocytes % (Manual) Eosinophils % (Manual) Basophils % (Manual) Nucleated RBC % Seg Neutrophils # Seg Neutrophils # Man Lymphocytes # (Manual) Monocytes # (Manual) Eosinophils # (Manual) Basophils # (Manual) PT INR Fibrinogen dRVVT Confirm Interp Factor V Activity POC ABG pH POC ABG pCO2 POC ABG pO2 ABG pO2 ABG HCO3 ABG Base Excess ABG Hemoglobin Oxyhemoglobin Sodium Potassium Chloride Carbon Dioxide BUN Creatinine Glucose POC Glucose 110 H 121 H Lactic Acid Calcium Ionized Calcium Phosphorus Magnesium Direct Bilirubin AST ALT Alkaline Phosphatase Lactate Dehydrogenase Troponin T C-Reactive Protein Total Protein Albumin Prealbumin Triglycerides Cholesterol LDL Cholesterol Direct HDL Cholesterol 25-OH Vitamin D Total PTH Intact Urine pH Urine WBC (Auto) Urine Creatinine Urine Total Protein Fluid Total Protein Vancomycin Trough Rheumatoid Factor Complement C4 Miscellaneous Test Crossmatch 02/19/17 02/20/17 02/20/17 09:45 00:10 06:15 WBC RBC Hgb Hct MCV MCH MCHC RDW Plt Count Lymph % (Auto) Roberts % (Auto) Lymph # Roberts # Baso # Seg Neutrophils % Seg Neuts % (Manual) Lymphocytes % (Manual) Monocytes % (Manual) Eosinophils % (Manual) Basophils % (Manual) Nucleated RBC % Seg Neutrophils # Seg Neutrophils # Man Lymphocytes # (Manual) Monocytes # (Manual) Eosinophils # (Manual) Basophils # (Manual) PT INR Fibrinogen dRVVT Confirm Interp Factor V Activity POC ABG pH POC ABG pCO2 POC ABG pO2 ABG pO2 ABG HCO3 ABG Base Excess ABG Hemoglobin Oxyhemoglobin Sodium 136 L Potassium 5.1 H Chloride 97.6 L Carbon Dioxide 20 L 18 L BUN 110 H 135 H Creatinine 2.6 H 3.2 H Glucose 106 H 110 H POC Glucose 117 H Lactic Acid Calcium Ionized Calcium Phosphorus 4.70 H D 5.60 H Magnesium Direct Bilirubin AST ALT Alkaline Phosphatase Lactate Dehydrogenase Troponin T C-Reactive Protein Total Protein Albumin Prealbumin Triglycerides Cholesterol LDL Cholesterol Direct HDL Cholesterol 25-OH Vitamin D Total PTH Intact Urine pH Urine WBC (Auto) Urine Creatinine Urine Total Protein Fluid Total Protein Vancomycin Trough Rheumatoid Factor Complement C4 Miscellaneous Test Crossmatch 02/20/17 02/20/17 02/21/17 11:30 17:51 00:14 WBC RBC Hgb Hct MCV MCH MCHC RDW Plt Count Lymph % (Auto) Roberts % (Auto) Lymph # Roberts # Baso # Seg Neutrophils % Seg Neuts % (Manual) Lymphocytes % (Manual) Monocytes % (Manual) Eosinophils % (Manual) Basophils % (Manual) Nucleated RBC % Seg Neutrophils # Seg Neutrophils # Man Lymphocytes # (Manual) Monocytes # (Manual) Eosinophils # (Manual) Basophils # (Manual) PT INR Fibrinogen dRVVT Confirm Interp Factor V Activity POC ABG pH POC ABG pCO2 POC ABG pO2 ABG pO2 ABG HCO3 ABG Base Excess ABG Hemoglobin Oxyhemoglobin Sodium Potassium Chloride Carbon Dioxide BUN Creatinine Glucose POC Glucose 173 H 133 H 125 H Lactic Acid Calcium Ionized Calcium Phosphorus Magnesium Direct Bilirubin AST ALT Alkaline Phosphatase Lactate Dehydrogenase Troponin T C-Reactive Protein Total Protein Albumin Prealbumin Triglycerides Cholesterol LDL Cholesterol Direct HDL Cholesterol 25-OH Vitamin D Total PTH Intact Urine pH Urine WBC (Auto) Urine Creatinine Urine Total Protein Fluid Total Protein Vancomycin Trough Rheumatoid Factor Complement C4 Miscellaneous Test Crossmatch 02/21/17 02/21/17 02/21/17 04:09 05:03 11:58 WBC RBC Hgb Hct MCV MCH MCHC RDW Plt Count Lymph % (Auto) Roberts % (Auto) Lymph # Roberts # Baso # Seg Neutrophils % Seg Neuts % (Manual) Lymphocytes % (Manual) Monocytes % (Manual) Eosinophils % (Manual) Basophils % (Manual) Nucleated RBC % Seg Neutrophils # Seg Neutrophils # Man Lymphocytes # (Manual) Monocytes # (Manual) Eosinophils # (Manual) Basophils # (Manual) PT INR Fibrinogen dRVVT Confirm Interp Factor V Activity POC ABG pH POC ABG pCO2 POC ABG pO2 ABG pO2 ABG HCO3 ABG Base Excess ABG Hemoglobin Oxyhemoglobin Sodium 135 L Potassium Chloride Carbon Dioxide 20 L BUN 76 H Creatinine 2.0 H Glucose 125 H POC Glucose 134 H 139 H Lactic Acid Calcium Ionized Calcium Phosphorus Magnesium Direct Bilirubin AST ALT Alkaline Phosphatase Lactate Dehydrogenase Troponin T C-Reactive Protein Total Protein Albumin Prealbumin Triglycerides Cholesterol LDL Cholesterol Direct HDL Cholesterol 25-OH Vitamin D Total PTH Intact Urine pH Urine WBC (Auto) Urine Creatinine Urine Total Protein Fluid Total Protein Vancomycin Trough Rheumatoid Factor Complement C4 Miscellaneous Test Crossmatch 02/21/17 02/21/17 02/22/17 17:16 23:41 04:10 WBC RBC Hgb Hct MCV MCH MCHC RDW Plt Count Lymph % (Auto) Roberts % (Auto) Lymph # Roberts # Baso # Seg Neutrophils % Seg Neuts % (Manual) Lymphocytes % (Manual) Monocytes % (Manual) Eosinophils % (Manual) Basophils % (Manual) Nucleated RBC % Seg Neutrophils # Seg Neutrophils # Man Lymphocytes # (Manual) Monocytes # (Manual) Eosinophils # (Manual) Basophils # (Manual) PT INR Fibrinogen dRVVT Confirm Interp Factor V Activity POC ABG pH POC ABG pCO2 POC ABG pO2 ABG pO2 ABG HCO3 ABG Base Excess ABG Hemoglobin Oxyhemoglobin Sodium 135 L Potassium Chloride 97.7 L Carbon Dioxide 21 L BUN 101 H Creatinine 2.5 H Glucose 116 H POC Glucose 120 H 128 H Lactic Acid Calcium Ionized Calcium Phosphorus Magnesium Direct Bilirubin AST ALT Alkaline Phosphatase Lactate Dehydrogenase Troponin T C-Reactive Protein Total Protein Albumin 1.3 L Prealbumin Triglycerides Cholesterol LDL Cholesterol Direct HDL Cholesterol 25-OH Vitamin D Total PTH Intact Urine pH Urine WBC (Auto) Urine Creatinine Urine Total Protein Fluid Total Protein Vancomycin Trough Rheumatoid Factor Complement C4 Miscellaneous Test Crossmatch 02/22/17 02/22/17 02/22/17 06:03 11:38 18:19 WBC RBC Hgb Hct MCV MCH MCHC RDW Plt Count Lymph % (Auto) Roberts % (Auto) Lymph # Roberts # Baso # Seg Neutrophils % Seg Neuts % (Manual) Lymphocytes % (Manual) Monocytes % (Manual) Eosinophils % (Manual) Basophils % (Manual) Nucleated RBC % Seg Neutrophils # Seg Neutrophils # Man Lymphocytes # (Manual) Monocytes # (Manual) Eosinophils # (Manual) Basophils # (Manual) PT INR Fibrinogen dRVVT Confirm Interp Factor V Activity POC ABG pH POC ABG pCO2 POC ABG pO2 ABG pO2 ABG HCO3 ABG Base Excess ABG Hemoglobin Oxyhemoglobin Sodium Potassium Chloride Carbon Dioxide BUN Creatinine Glucose POC Glucose 126 H 147 H 121 H Lactic Acid Calcium Ionized Calcium Phosphorus Magnesium Direct Bilirubin AST ALT Alkaline Phosphatase Lactate Dehydrogenase Troponin T C-Reactive Protein Total Protein Albumin Prealbumin Triglycerides Cholesterol LDL Cholesterol Direct HDL Cholesterol 25-OH Vitamin D Total PTH Intact Urine pH Urine WBC (Auto) Urine Creatinine Urine Total Protein Fluid Total Protein Vancomycin Trough Rheumatoid Factor Complement C4 Miscellaneous Test Crossmatch 02/23/17 02/23/17 02/23/17 05:00 05:46 12:27 WBC RBC Hgb Hct MCV MCH MCHC RDW Plt Count Lymph % (Auto) Roberts % (Auto) Lymph # Roberts # Baso # Seg Neutrophils % Seg Neuts % (Manual) Lymphocytes % (Manual) Monocytes % (Manual) Eosinophils % (Manual) Basophils % (Manual) Nucleated RBC % Seg Neutrophils # Seg Neutrophils # Man Lymphocytes # (Manual) Monocytes # (Manual) Eosinophils # (Manual) Basophils # (Manual) PT INR Fibrinogen dRVVT Confirm Interp Factor V Activity POC ABG pH POC ABG pCO2 POC ABG pO2 ABG pO2 ABG HCO3 ABG Base Excess ABG Hemoglobin Oxyhemoglobin Sodium 136 L Potassium Chloride 97.1 L Carbon Dioxide BUN 50 H Creatinine 1.5 H Glucose POC Glucose 110 H 115 H Lactic Acid Calcium 8.1 L Ionized Calcium Phosphorus 1.90 L D Magnesium Direct Bilirubin AST ALT Alkaline Phosphatase Lactate Dehydrogenase Troponin T C-Reactive Protein Total Protein Albumin Prealbumin Triglycerides Cholesterol LDL Cholesterol Direct HDL Cholesterol 25-OH Vitamin D Total PTH Intact Urine pH Urine WBC (Auto) Urine Creatinine Urine Total Protein Fluid Total Protein Vancomycin Trough Rheumatoid Factor Complement C4 Miscellaneous Test Crossmatch 02/23/17 02/23/17 02/24/17 18:02 23:18 05:04 WBC RBC Hgb Hct MCV MCH MCHC RDW Plt Count Lymph % (Auto) Roberts % (Auto) Lymph # Roberts # Baso # Seg Neutrophils % Seg Neuts % (Manual) Lymphocytes % (Manual) Monocytes % (Manual) Eosinophils % (Manual) Basophils % (Manual) Nucleated RBC % Seg Neutrophils # Seg Neutrophils # Man Lymphocytes # (Manual) Monocytes # (Manual) Eosinophils # (Manual) Basophils # (Manual) PT INR Fibrinogen dRVVT Confirm Interp Factor V Activity POC ABG pH POC ABG pCO2 POC ABG pO2 ABG pO2 ABG HCO3 ABG Base Excess ABG Hemoglobin Oxyhemoglobin Sodium Potassium Chloride Carbon Dioxide BUN Creatinine Glucose POC Glucose 111 H 126 H 121 H Lactic Acid Calcium Ionized Calcium Phosphorus Magnesium Direct Bilirubin AST ALT Alkaline Phosphatase Lactate Dehydrogenase Troponin T C-Reactive Protein Total Protein Albumin Prealbumin Triglycerides Cholesterol LDL Cholesterol Direct HDL Cholesterol 25-OH Vitamin D Total PTH Intact Urine pH Urine WBC (Auto) Urine Creatinine Urine Total Protein Fluid Total Protein Vancomycin Trough Rheumatoid Factor Complement C4 Miscellaneous Test Crossmatch 02/24/17 02/24/17 02/24/17 05:20 10:05 11:34 WBC RBC 2.95 L Hgb 8.4 L Hct 25.7 L MCV MCH MCHC RDW 20.8 H Plt Count Lymph % (Auto) Roberts % (Auto) Lymph # Roberts # Baso # Seg Neutrophils % 71.8 H Seg Neuts % (Manual) Lymphocytes % (Manual) Monocytes % (Manual) Eosinophils % (Manual) Basophils % (Manual) Nucleated RBC % Seg Neutrophils # Seg Neutrophils # Man Lymphocytes # (Manual) Monocytes # (Manual) Eosinophils # (Manual) Basophils # (Manual) PT INR Fibrinogen dRVVT Confirm Interp Factor V Activity POC ABG pH POC ABG pCO2 POC ABG pO2 ABG pO2 ABG HCO3 ABG Base Excess ABG Hemoglobin Oxyhemoglobin Sodium 136 L Potassium Chloride 95.5 L Carbon Dioxide BUN 76 H Creatinine 2.2 H Glucose 109 H POC Glucose 123 H Lactic Acid Calcium Ionized Calcium Phosphorus Magnesium Direct Bilirubin AST ALT Alkaline Phosphatase Lactate Dehydrogenase Troponin T C-Reactive Protein Total Protein Albumin Prealbumin Triglycerides Cholesterol LDL Cholesterol Direct HDL Cholesterol 25-OH Vitamin D Total PTH Intact Urine pH Urine WBC (Auto) Urine Creatinine Urine Total Protein Fluid Total Protein Vancomycin Trough Rheumatoid Factor Complement C4 Miscellaneous Test Crossmatch 02/24/17 02/24/17 02/25/17 17:43 23:02 05:00 WBC RBC Hgb Hct MCV MCH MCHC RDW Plt Count Lymph % (Auto) Roberts % (Auto) Lymph # Roberts # Baso # Seg Neutrophils % Seg Neuts % (Manual) Lymphocytes % (Manual) Monocytes % (Manual) Eosinophils % (Manual) Basophils % (Manual) Nucleated RBC % Seg Neutrophils # Seg Neutrophils # Man Lymphocytes # (Manual) Monocytes # (Manual) Eosinophils # (Manual) Basophils # (Manual) PT INR Fibrinogen dRVVT Confirm Interp Factor V Activity POC ABG pH POC ABG pCO2 POC ABG pO2 ABG pO2 ABG HCO3 ABG Base Excess ABG Hemoglobin Oxyhemoglobin Sodium Potassium Chloride 96.8 L Carbon Dioxide BUN 94 H Creatinine 2.8 H Glucose 118 H POC Glucose 128 H 144 H Lactic Acid Calcium Ionized Calcium Phosphorus Magnesium Direct Bilirubin AST ALT Alkaline Phosphatase Lactate Dehydrogenase Troponin T C-Reactive Protein Total Protein Albumin Prealbumin Triglycerides Cholesterol LDL Cholesterol Direct HDL Cholesterol 25-OH Vitamin D Total PTH Intact Urine pH Urine WBC (Auto) Urine Creatinine Urine Total Protein Fluid Total Protein Vancomycin Trough Rheumatoid Factor Complement C4 Miscellaneous Test Crossmatch 02/25/17 02/25/17 02/25/17 05:32 11:44 18:18 WBC RBC Hgb Hct MCV MCH MCHC RDW Plt Count Lymph % (Auto) Roberts % (Auto) Lymph # Roberts # Baso # Seg Neutrophils % Seg Neuts % (Manual) Lymphocytes % (Manual) Monocytes % (Manual) Eosinophils % (Manual) Basophils % (Manual) Nucleated RBC % Seg Neutrophils # Seg Neutrophils # Man Lymphocytes # (Manual) Monocytes # (Manual) Eosinophils # (Manual) Basophils # (Manual) PT INR Fibrinogen dRVVT Confirm Interp Factor V Activity POC ABG pH POC ABG pCO2 POC ABG pO2 ABG pO2 ABG HCO3 ABG Base Excess ABG Hemoglobin Oxyhemoglobin Sodium Potassium Chloride Carbon Dioxide BUN Creatinine Glucose POC Glucose 118 H 106 H 210 H Lactic Acid Calcium Ionized Calcium Phosphorus Magnesium Direct Bilirubin AST ALT Alkaline Phosphatase Lactate Dehydrogenase Troponin T C-Reactive Protein Total Protein Albumin Prealbumin Triglycerides Cholesterol LDL Cholesterol Direct HDL Cholesterol 25-OH Vitamin D Total PTH Intact Urine pH Urine WBC (Auto) Urine Creatinine Urine Total Protein Fluid Total Protein Vancomycin Trough Rheumatoid Factor Complement C4 Miscellaneous Test Crossmatch 02/26/17 02/26/17 02/26/17 00:07 05:14 12:07 WBC RBC Hgb Hct MCV MCH MCHC RDW Plt Count Lymph % (Auto) Roberts % (Auto) Lymph # Roberts # Baso # Seg Neutrophils % Seg Neuts % (Manual) Lymphocytes % (Manual) Monocytes % (Manual) Eosinophils % (Manual) Basophils % (Manual) Nucleated RBC % Seg Neutrophils # Seg Neutrophils # Man Lymphocytes # (Manual) Monocytes # (Manual) Eosinophils # (Manual) Basophils # (Manual) PT INR Fibrinogen dRVVT Confirm Interp Factor V Activity POC ABG pH POC ABG pCO2 POC ABG pO2 ABG pO2 ABG HCO3 ABG Base Excess ABG Hemoglobin Oxyhemoglobin Sodium Potassium Chloride Carbon Dioxide BUN Creatinine Glucose POC Glucose 136 H 142 H 132 H Lactic Acid Calcium Ionized Calcium Phosphorus Magnesium Direct Bilirubin AST ALT Alkaline Phosphatase Lactate Dehydrogenase Troponin T C-Reactive Protein Total Protein Albumin Prealbumin Triglycerides Cholesterol LDL Cholesterol Direct HDL Cholesterol 25-OH Vitamin D Total PTH Intact Urine pH Urine WBC (Auto) Urine Creatinine Urine Total Protein Fluid Total Protein Vancomycin Trough Rheumatoid Factor Complement C4 Miscellaneous Test Crossmatch 02/26/17 02/26/17 02/27/17 18:35 23:54 06:25 WBC RBC Hgb Hct MCV MCH MCHC RDW Plt Count Lymph % (Auto) Roberts % (Auto) Lymph # Roberts # Baso # Seg Neutrophils % Seg Neuts % (Manual) Lymphocytes % (Manual) Monocytes % (Manual) Eosinophils % (Manual) Basophils % (Manual) Nucleated RBC % Seg Neutrophils # Seg Neutrophils # Man Lymphocytes # (Manual) Monocytes # (Manual) Eosinophils # (Manual) Basophils # (Manual) PT INR Fibrinogen dRVVT Confirm Interp Factor V Activity POC ABG pH POC ABG pCO2 POC ABG pO2 ABG pO2 ABG HCO3 ABG Base Excess ABG Hemoglobin Oxyhemoglobin Sodium Potassium Chloride Carbon Dioxide BUN Creatinine Glucose POC Glucose 155 H 150 H 138 H Lactic Acid Calcium Ionized Calcium Phosphorus Magnesium Direct Bilirubin AST ALT Alkaline Phosphatase Lactate Dehydrogenase Troponin T C-Reactive Protein Total Protein Albumin Prealbumin Triglycerides Cholesterol LDL Cholesterol Direct HDL Cholesterol 25-OH Vitamin D Total PTH Intact Urine pH Urine WBC (Auto) Urine Creatinine Urine Total Protein Fluid Total Protein Vancomycin Trough Rheumatoid Factor Complement C4 Miscellaneous Test Crossmatch 02/27/17 02/27/17 02/27/17 08:50 11:50 17:38 WBC RBC Hgb Hct MCV MCH MCHC RDW Plt Count Lymph % (Auto) Roberts % (Auto) Lymph # Roberts # Baso # Seg Neutrophils % Seg Neuts % (Manual) Lymphocytes % (Manual) Monocytes % (Manual) Eosinophils % (Manual) Basophils % (Manual) Nucleated RBC % Seg Neutrophils # Seg Neutrophils # Man Lymphocytes # (Manual) Monocytes # (Manual) Eosinophils # (Manual) Basophils # (Manual) PT INR Fibrinogen dRVVT Confirm Interp Factor V Activity POC ABG pH POC ABG pCO2 POC ABG pO2 ABG pO2 ABG HCO3 ABG Base Excess ABG Hemoglobin Oxyhemoglobin Sodium Potassium 3.2 L Chloride Carbon Dioxide BUN 95 H Creatinine 2.7 H Glucose 179 H POC Glucose 150 H 133 H Lactic Acid Calcium Ionized Calcium Phosphorus Magnesium Direct Bilirubin AST ALT Alkaline Phosphatase Lactate Dehydrogenase Troponin T C-Reactive Protein Total Protein Albumin Prealbumin Triglycerides Cholesterol LDL Cholesterol Direct HDL Cholesterol 25-OH Vitamin D Total PTH Intact Urine pH Urine WBC (Auto) Urine Creatinine Urine Total Protein Fluid Total Protein Vancomycin Trough Rheumatoid Factor Complement C4 Miscellaneous Test Crossmatch 02/27/17 02/28/17 02/28/17 23:55 05:23 06:10 WBC RBC Hgb Hct MCV MCH MCHC RDW Plt Count Lymph % (Auto) Roberts % (Auto) Lymph # Roberts # Baso # Seg Neutrophils % Seg Neuts % (Manual) Lymphocytes % (Manual) Monocytes % (Manual) Eosinophils % (Manual) Basophils % (Manual) Nucleated RBC % Seg Neutrophils # Seg Neutrophils # Man Lymphocytes # (Manual) Monocytes # (Manual) Eosinophils # (Manual) Basophils # (Manual) PT INR Fibrinogen dRVVT Confirm Interp Factor V Activity POC ABG pH POC ABG pCO2 POC ABG pO2 ABG pO2 ABG HCO3 ABG Base Excess ABG Hemoglobin Oxyhemoglobin Sodium 134 L Potassium 3.0 L Chloride 94.9 L Carbon Dioxide BUN 53 H Creatinine 1.9 H Glucose 138 H POC Glucose 134 H 164 H Lactic Acid Calcium Ionized Calcium Phosphorus 2.00 L D Magnesium Direct Bilirubin AST ALT Alkaline Phosphatase Lactate Dehydrogenase Troponin T C-Reactive Protein Total Protein Albumin Prealbumin Triglycerides Cholesterol LDL Cholesterol Direct HDL Cholesterol 25-OH Vitamin D Total PTH Intact Urine pH Urine WBC (Auto) Urine Creatinine Urine Total Protein Fluid Total Protein Vancomycin Trough Rheumatoid Factor Complement C4 Miscellaneous Test Crossmatch 02/28/17 02/28/17 02/28/17 12:18 17:54 23:47 WBC RBC Hgb Hct MCV MCH MCHC RDW Plt Count Lymph % (Auto) Roberts % (Auto) Lymph # Roberts # Baso # Seg Neutrophils % Seg Neuts % (Manual) Lymphocytes % (Manual) Monocytes % (Manual) Eosinophils % (Manual) Basophils % (Manual) Nucleated RBC % Seg Neutrophils # Seg Neutrophils # Man Lymphocytes # (Manual) Monocytes # (Manual) Eosinophils # (Manual) Basophils # (Manual) PT INR Fibrinogen dRVVT Confirm Interp Factor V Activity POC ABG pH POC ABG pCO2 POC ABG pO2 ABG pO2 ABG HCO3 ABG Base Excess ABG Hemoglobin Oxyhemoglobin Sodium Potassium Chloride Carbon Dioxide BUN Creatinine Glucose POC Glucose 135 H 140 H 144 H Lactic Acid Calcium Ionized Calcium Phosphorus Magnesium Direct Bilirubin AST ALT Alkaline Phosphatase Lactate Dehydrogenase Troponin T C-Reactive Protein Total Protein Albumin Prealbumin Triglycerides Cholesterol LDL Cholesterol Direct HDL Cholesterol 25-OH Vitamin D Total PTH Intact Urine pH Urine WBC (Auto) Urine Creatinine Urine Total Protein Fluid Total Protein Vancomycin Trough Rheumatoid Factor Complement C4 Miscellaneous Test Crossmatch 03/01/17 03/01/17 03/01/17 04:00 12:02 17:13 WBC RBC Hgb Hct MCV MCH MCHC RDW Plt Count Lymph % (Auto) Roberts % (Auto) Lymph # Roberts # Baso # Seg Neutrophils % Seg Neuts % (Manual) Lymphocytes % (Manual) Monocytes % (Manual) Eosinophils % (Manual) Basophils % (Manual) Nucleated RBC % Seg Neutrophils # Seg Neutrophils # Man Lymphocytes # (Manual) Monocytes # (Manual) Eosinophils # (Manual) Basophils # (Manual) PT INR Fibrinogen dRVVT Confirm Interp Factor V Activity POC ABG pH POC ABG pCO2 POC ABG pO2 ABG pO2 ABG HCO3 ABG Base Excess ABG Hemoglobin Oxyhemoglobin Sodium Potassium 3.0 L Chloride 97.0 L Carbon Dioxide BUN 81 H Creatinine 2.6 H Glucose 121 H POC Glucose 165 H 126 H Lactic Acid Calcium Ionized Calcium Phosphorus Magnesium Direct Bilirubin AST ALT Alkaline Phosphatase Lactate Dehydrogenase Troponin T C-Reactive Protein Total Protein Albumin Prealbumin Triglycerides Cholesterol LDL Cholesterol Direct HDL Cholesterol 25-OH Vitamin D Total PTH Intact Urine pH Urine WBC (Auto) Urine Creatinine Urine Total Protein Fluid Total Protein Vancomycin Trough Rheumatoid Factor Complement C4 Miscellaneous Test Crossmatch 03/02/17 03/02/17 03/02/17 00:10 03:05 05:20 WBC RBC Hgb Hct MCV MCH MCHC RDW Plt Count Lymph % (Auto) Roberts % (Auto) Lymph # Roberts # Baso # Seg Neutrophils % Seg Neuts % (Manual) Lymphocytes % (Manual) Monocytes % (Manual) Eosinophils % (Manual) Basophils % (Manual) Nucleated RBC % Seg Neutrophils # Seg Neutrophils # Man Lymphocytes # (Manual) Monocytes # (Manual) Eosinophils # (Manual) Basophils # (Manual) PT INR Fibrinogen dRVVT Confirm Interp Factor V Activity POC ABG pH POC ABG pCO2 POC ABG pO2 ABG pO2 ABG HCO3 ABG Base Excess ABG Hemoglobin Oxyhemoglobin Sodium Potassium 3.0 L Chloride Carbon Dioxide BUN 41 H Creatinine 1.6 H Glucose 130 H POC Glucose 129 H 173 H Lactic Acid Calcium Ionized Calcium Phosphorus 1.70 L D Magnesium 1.40 L Direct Bilirubin AST ALT Alkaline Phosphatase Lactate Dehydrogenase Troponin T C-Reactive Protein Total Protein Albumin Prealbumin Triglycerides Cholesterol LDL Cholesterol Direct HDL Cholesterol 25-OH Vitamin D Total PTH Intact Urine pH Urine WBC (Auto) Urine Creatinine Urine Total Protein Fluid Total Protein Vancomycin Trough Rheumatoid Factor Complement C4 Miscellaneous Test Crossmatch 03/02/17 03/02/17 03/02/17 11:49 16:38 23:46 WBC RBC Hgb Hct MCV MCH MCHC RDW Plt Count Lymph % (Auto) Roberts % (Auto) Lymph # Roberts # Baso # Seg Neutrophils % Seg Neuts % (Manual) Lymphocytes % (Manual) Monocytes % (Manual) Eosinophils % (Manual) Basophils % (Manual) Nucleated RBC % Seg Neutrophils # Seg Neutrophils # Man Lymphocytes # (Manual) Monocytes # (Manual) Eosinophils # (Manual) Basophils # (Manual) PT INR Fibrinogen dRVVT Confirm Interp Factor V Activity POC ABG pH POC ABG pCO2 POC ABG pO2 ABG pO2 ABG HCO3 ABG Base Excess ABG Hemoglobin Oxyhemoglobin Sodium Potassium Chloride Carbon Dioxide BUN Creatinine Glucose POC Glucose 129 H 141 H 119 H Lactic Acid Calcium Ionized Calcium Phosphorus Magnesium Direct Bilirubin AST ALT Alkaline Phosphatase Lactate Dehydrogenase Troponin T C-Reactive Protein Total Protein Albumin Prealbumin Triglycerides Cholesterol LDL Cholesterol Direct HDL Cholesterol 25-OH Vitamin D Total PTH Intact Urine pH Urine WBC (Auto) Urine Creatinine Urine Total Protein Fluid Total Protein Vancomycin Trough Rheumatoid Factor Complement C4 Miscellaneous Test Crossmatch 03/03/17 03/03/17 03/03/17 04:00 11:59 18:08 WBC RBC Hgb Hct MCV MCH MCHC RDW Plt Count Lymph % (Auto) Roberts % (Auto) Lymph # Roberts # Baso # Seg Neutrophils % Seg Neuts % (Manual) Lymphocytes % (Manual) Monocytes % (Manual) Eosinophils % (Manual) Basophils % (Manual) Nucleated RBC % Seg Neutrophils # Seg Neutrophils # Man Lymphocytes # (Manual) Monocytes # (Manual) Eosinophils # (Manual) Basophils # (Manual) PT INR Fibrinogen dRVVT Confirm Interp Factor V Activity POC ABG pH POC ABG pCO2 POC ABG pO2 ABG pO2 ABG HCO3 ABG Base Excess ABG Hemoglobin Oxyhemoglobin Sodium Potassium Chloride Carbon Dioxide BUN 70 H Creatinine 2.3 H Glucose POC Glucose 125 H 131 H Lactic Acid Calcium Ionized Calcium Phosphorus Magnesium Direct Bilirubin AST ALT Alkaline Phosphatase Lactate Dehydrogenase Troponin T C-Reactive Protein Total Protein Albumin Prealbumin Triglycerides Cholesterol LDL Cholesterol Direct HDL Cholesterol 25-OH Vitamin D Total PTH Intact Urine pH Urine WBC (Auto) Urine Creatinine Urine Total Protein Fluid Total Protein Vancomycin Trough Rheumatoid Factor Complement C4 Miscellaneous Test Crossmatch 03/03/17 03/03/17 03/04/17 20:17 23:43 05:21 WBC RBC Hgb Hct MCV MCH MCHC RDW Plt Count Lymph % (Auto) Roberts % (Auto) Lymph # Roberts # Baso # Seg Neutrophils % Seg Neuts % (Manual) Lymphocytes % (Manual) Monocytes % (Manual) Eosinophils % (Manual) Basophils % (Manual) Nucleated RBC % Seg Neutrophils # Seg Neutrophils # Man Lymphocytes # (Manual) Monocytes # (Manual) Eosinophils # (Manual) Basophils # (Manual) PT INR Fibrinogen dRVVT Confirm Interp Factor V Activity POC ABG pH 7.518 H POC ABG pCO2 28.8 L POC ABG pO2 61 L ABG pO2 ABG HCO3 ABG Base Excess ABG Hemoglobin Oxyhemoglobin Sodium Potassium Chloride Carbon Dioxide BUN Creatinine Glucose POC Glucose 122 H 130 H Lactic Acid Calcium Ionized Calcium Phosphorus Magnesium Direct Bilirubin AST ALT Alkaline Phosphatase Lactate Dehydrogenase Troponin T C-Reactive Protein Total Protein Albumin Prealbumin Triglycerides Cholesterol LDL Cholesterol Direct HDL Cholesterol 25-OH Vitamin D Total PTH Intact Urine pH Urine WBC (Auto) Urine Creatinine Urine Total Protein Fluid Total Protein Vancomycin Trough Rheumatoid Factor Complement C4 Miscellaneous Test Crossmatch 03/04/17 03/05/17 06:10 06:15 WBC RBC Hgb Hct MCV MCH MCHC RDW Plt Count Lymph % (Auto) Roberts % (Auto) Lymph # Roberts # Baso # Seg Neutrophils % Seg Neuts % (Manual) Lymphocytes % (Manual) Monocytes % (Manual) Eosinophils % (Manual) Basophils % (Manual) Nucleated RBC % Seg Neutrophils # Seg Neutrophils # Man Lymphocytes # (Manual) Monocytes # (Manual) Eosinophils # (Manual) Basophils # (Manual) PT INR Fibrinogen dRVVT Confirm Interp Factor V Activity POC ABG pH POC ABG pCO2 POC ABG pO2 ABG pO2 ABG HCO3 ABG Base Excess ABG Hemoglobin Oxyhemoglobin Sodium 135 L Potassium 5.2 H Chloride 95.8 L 97.7 L Carbon Dioxide 21 L BUN 40 H 56 H Creatinine 1.7 H 2.4 H Glucose 118 H POC Glucose Lactic Acid Calcium Ionized Calcium Phosphorus 4.80 H D Magnesium Direct Bilirubin AST ALT Alkaline Phosphatase Lactate Dehydrogenase Troponin T C-Reactive Protein Total Protein Albumin Prealbumin Triglycerides Cholesterol LDL Cholesterol Direct HDL Cholesterol 25-OH Vitamin D Total PTH Intact Urine pH Urine WBC (Auto) Urine Creatinine Urine Total Protein Fluid Total Protein Vancomycin Trough Rheumatoid Factor Complement C4 Miscellaneous Test Crossmatch Allied health notes reviewed: nursing
[2017-03-05] MEDS: PEPCID IV SCH (14:07)
[2017-03-05] MEDS: DURAGESIC TD SCH (14:09)
[2017-03-05] MEDS: CORDARONE 900 MG in D5W 482 ML IV SCH (16:11)
--- NOTE | 2017-03-05 16:35 | Progress Note ---
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 * Epogen TIW prn * Vent management per pulm/CCM * Pressors prn for MAP>65 * Dose medications for renal function * Will see again on Monday Subjective Date of service: 03/05/17 Principal diagnosis: Acute resp failure on MVS; S/P Acute CVA; Acute Encephalopathy; JUANITA Interval history: Patient on pressure support ventilation today. Objective - Vital Signs Vital signs: Vital Signs - 12hr 03/05/17 03/05/17 03/05/17 04:46 05:00 05:16 Temperature Pulse Rate 109 H 109 H 111 H Respiratory 23 22 21 Rate Blood Pressure 128/78 134/74 134/74 O2 Sat by Pulse 94 92 95 Oximetry O2 Sat by Pulse Oximetry [ Assessment] 03/05/17 03/05/17 03/05/17 05:30 05:46 06:00 Temperature Pulse Rate 115 H 118 H 113 H Respiratory 29 H 33 H 27 H Rate Blood Pressure 134/74 134/74 132/77 O2 Sat by Pulse 90 82 L 84 Oximetry O2 Sat by Pulse Oximetry [ Assessment] 03/05/17 03/05/17 03/05/17 06:16 06:30 06:46 Temperature Pulse Rate 119 H 117 H 119 H Respiratory 25 H 22 20 Rate Blood Pressure 132/77 132/77 132/77 O2 Sat by Pulse 83 L 79 L 83 L Oximetry O2 Sat by Pulse Oximetry [ Assessment] 03/05/17 03/05/17 03/05/17 07:00 07:16 07:30 Temperature Pulse Rate 121 H 120 H 117 H Respiratory 31 H 30 H 26 H Rate Blood Pressure 132/77 116/60 116/60 O2 Sat by Pulse 80 L 95 Oximetry O2 Sat by Pulse Oximetry [ Assessment] 03/05/17 03/05/17 03/05/17 07:46 08:00 08:16 Temperature Pulse Rate 116 H 116 H 113 H Respiratory 25 H 21 21 Rate Blood Pressure 116/60 134/72 134/72 O2 Sat by Pulse 97 92 93 Oximetry O2 Sat by Pulse Oximetry [ Assessment] 03/05/17 03/05/17 03/05/17 08:19 08:30 08:46 Temperature 99.8 F H Pulse Rate 113 H 112 H Respiratory 24 22 Rate Blood Pressure 134/72 134/72 O2 Sat by Pulse 93 93 Oximetry O2 Sat by Pulse Oximetry [ Assessment] 03/05/17 03/05/17 03/05/17 09:00 09:16 09:30 Temperature Pulse Rate 112 H 112 H 96 H Respiratory 20 22 18 Rate Blood Pressure 126/73 126/73 126/73 O2 Sat by Pulse 94 95 98 Oximetry O2 Sat by Pulse Oximetry [ Assessment] 03/05/17 03/05/17 03/05/17 09:46 10:00 10:16 Temperature Pulse Rate 100 H 100 H 101 H Respiratory 24 19 21 Rate Blood Pressure 126/73 123/67 123/67 O2 Sat by Pulse 97 97 Oximetry O2 Sat by Pulse Oximetry [ Assessment] 03/05/17 03/05/17 03/05/17 10:22 10:30 10:46 Temperature Pulse Rate 102 H 102 H 105 H Respiratory 20 21 Rate Blood Pressure 123/67 123/67 123/67 O2 Sat by Pulse 97 98 Oximetry O2 Sat by Pulse Oximetry [ Assessment] 03/05/17 03/05/17 03/05/17 11:00 11:16 11:30 Temperature Pulse Rate 105 H 108 H 106 H Respiratory 21 22 21 Rate Blood Pressure 127/65 127/65 127/65 O2 Sat by Pulse 98 98 97 Oximetry O2 Sat by Pulse Oximetry [ Assessment] 03/05/17 03/05/17 03/05/17 11:46 11:56 12:00 Temperature 99.0 F Pulse Rate 107 H 108 H Respiratory 20 21 Rate Blood Pressure 127/65 124/63 O2 Sat by Pulse 98 96 Oximetry O2 Sat by Pulse Oximetry [ Assessment] 03/05/17 03/05/17 03/05/17 12:30 14:49 15:06 Temperature Pulse Rate 108 H Respiratory 36 H Rate Blood Pressure 124/63 O2 Sat by Pulse 97 97 Oximetry O2 Sat by Pulse 98 Oximetry [ Assessment] 03/05/17 15:34 Temperature 100.8 F H Pulse Rate Respiratory Rate Blood Pressure O2 Sat by Pulse Oximetry O2 Sat by Pulse Oximetry [ Assessment] - General Appearance General appearance: chronically ill EENT: ATNC Neck: other (trach) Respiratory: Present: Other (coarse breath sounds) Cardiology: tachycardia Gastrointestinal: hypoactive bowel sounds Neurologic: other (no meaningful response to tactile/verbal stimuli; eyes open - does not track) Musculoskeletal: other (depended edema) - Lab 02/24/17 10:05 03/05/17 06:15 Most recent lab results ABG pH 7.450 pH Units (7.350-7.450) 12/05/16 Unknown ABG pCO2 29.6 mm Hg 12/05/16 Unknown ABG pO2 75.2 mm Hg (80.0-90.0) L 12/05/16 Unknown ABG HCO3 20.1 mmol/L (20.0-26.0) 12/05/16 Unknown ABG O2 Saturation 96.8 % (95.0-99.0) 12/05/16 Unknown Calcium 9.3 mg/dL (8.4-10.2) 03/05/17 06:15 Phosphorus 4.80 mg/dL (2.5-4.5) H D 03/05/17 06:15 Magnesium 2.30 mg/dL (1.7-2.3) 03/05/17 06:15 Urine Creatinine 19.7 mg/dL (0.1-20.0) 11/12/16 10:18 Urine Sodium 36 mEq/L 09/16/16 19:19 Urine Total Protein 16 mg/dL (5-11.8) H 09/16/16 19:19
[2017-03-05] MEDS ORDERED: TPN ADULT IV SCH (20:00)
[2017-03-06] MEDS: HumuLIN R SUB-Q SCH ×3 (00:58→17:43)
[2017-03-06] MEDS: LOPRESSOR IV SCH ×3 (01:01→14:38)
[2017-03-06 05:04] LABS: Albumin 1.5 g/dL (3.9-5); Calcium 8.7 mg/dL (8.4-10.2)
[2017-03-06] MEDS: CORDARONE 900 MG in D5W 482 ML IV SCH (07:00)
[2017-03-06] MEDS: ZOFRAN IV PRN (07:02)
[2017-03-06] MEDS: DUONEB *Not for PRN Use IH SCH ×3 (08:31→20:11)
[2017-03-06] MEDS: HEPARIN SUB-Q SCH ×2 (09:35→22:18)
[2017-03-06] MEDS: PEPCID IV SCH (09:35)
--- NOTE | 2017-03-06 10:13 | Progress Note ---
Subjective Principal diagnosis: Acute resp failure on MVS; S/P Acute CVA; Acute Encephalopathy; JUANITA Interval history: Patient was seen today for follow-up on multiple renal related issues Events of this hospitalization noted, she remains dialysis dependent Monday and Monday Mild tachycardia, Central venous catheter has been removed Vitals labs intake output medications were reviewed Social history: Reviewed Allergies: Reviewed Family history: Reviewed Physical examination HEENT: Oral mucosa moist no pallor or icterus Neck: Supple no JVD Chest: Clear to auscultation anteriorly cvc removed CVS: Regular rate and rhythm Abdomen: Soft nontender no suprapubic masses no organomegaly appreciable Extremity: Dry skin less than 1+ peripheral edema Musculoskeletal: No joint effusion noted in knees and ankle Dermatology: No petechial rashes Psychiatry: No evidence of any agitation and aggression noted Assessment and plan End-stage renal disease: normally being dialyzed on Monday, patient has not recovered from acute kidney injury Patient will need a Vas-Cath placement for hemodialysis today due to hyperkalemia She will need to be dialyzed today. Permacath has been removed, patient has noted to be febrile again possibility of endocarditis being ruled out, reviewed infectious disease notes Hyperkalemia mild 5.9 patient will need hemodialysis She will also need labs periodically Anemia in end-stage renal disease: To monitor and follow Secondary hyperparathyroidism: To monitor and follow phosphorus and PTH level phosphorus has been relatively low periodically will need replacement Multiple comorbidities including CVA, bacteremia Respiratory failure currently ventilator dependent History of gram-negative sepsis, candidemia, peritonitis Persistent vegetative state ? hospice appropriate Atrial fibrillation, diabetes, hyperlipidemia, renovascular hypertension, sacral decubitus ulcer We'll continue to follow and make recommendation from renal standpoint Objective - Vital Signs Vital signs: Vital Signs - 12hr 03/05/17 03/05/17 03/06/17 23:00 23:44 00:00 Temperature 99.3 F Pulse Rate 106 H 114 H Pulse Rate [ Throughout] Respiratory 35 H Rate Respiratory Rate [ Throughout] Blood Pressure 132/71 132/71 O2 Sat by Pulse 97 98 Oximetry O2 Sat by Pulse 99 Oximetry [ Assessment] 03/06/17 03/06/17 03/06/17 00:01 01:01 02:01 Temperature Pulse Rate 97 H 103 H 105 H Pulse Rate [ Throughout] Respiratory 21 20 18 Rate Respiratory Rate [ Throughout] Blood Pressure 132/71 119/65 119/65 O2 Sat by Pulse 100 96 95 Oximetry O2 Sat by Pulse Oximetry [ Assessment] 03/06/17 03/06/17 03/06/17 03:01 03:33 04:00 Temperature 99.1 F Pulse Rate 106 H 107 H 110 H Pulse Rate [ Throughout] Respiratory 16 18 Rate Respiratory Rate [ Throughout] Blood Pressure 125/61 125/61 118/65 O2 Sat by Pulse 94 97 92 Oximetry O2 Sat by Pulse Oximetry [ Assessment] 03/06/17 03/06/17 03/06/17 05:01 06:01 07:01 Temperature Pulse Rate 109 H 112 H 114 H Pulse Rate [ Throughout] Respiratory 15 18 16 Rate Respiratory Rate [ Throughout] Blood Pressure 115/60 127/66 133/67 O2 Sat by Pulse 93 96 94 Oximetry O2 Sat by Pulse Oximetry [ Assessment] 03/06/17 03/06/17 03/06/17 07:33 08:00 08:01 Temperature 97.7 F Pulse Rate 110 H 119 H Pulse Rate [ Throughout] Respiratory 21 Rate Respiratory Rate [ Throughout] Blood Pressure 133/67 133/74 O2 Sat by Pulse 94 97 92 Oximetry O2 Sat by Pulse 96 Oximetry [ Assessment] 03/06/17 03/06/17 03/06/17 08:33 08:41 09:40 Temperature Pulse Rate 115 H Pulse Rate [ 116 H 115 H Throughout] Respiratory Rate Respiratory 20 20 Rate [ Throughout] Blood Pressure 117/62 O2 Sat by Pulse Oximetry O2 Sat by Pulse Oximetry [ Assessment] - Lab 02/24/17 10:05 03/06/17 03:52 Most recent lab results ABG pH 7.450 pH Units (7.350-7.450) 12/05/16 Unknown ABG pCO2 29.6 mm Hg 12/05/16 Unknown ABG pO2 75.2 mm Hg (80.0-90.0) L 12/05/16 Unknown ABG HCO3 20.1 mmol/L (20.0-26.0) 12/05/16 Unknown ABG O2 Saturation 96.8 % (95.0-99.0) 12/05/16 Unknown Calcium 8.7 mg/dL (8.4-10.2) 03/06/17 03:52 Phosphorus 6.00 mg/dL (2.5-4.5) H D 01/15/18 03:52 Magnesium 2.60 mg/dL (1.7-2.3) H 03/06/17 03:52 Urine Creatinine 19.7 mg/dL (0.1-20.0) 11/12/16 10:18 Urine Sodium 36 mEq/L 09/16/16 19:19 Urine Total Protein 16 mg/dL (5-11.8) H 09/16/16 19:19
--- NOTE | 2017-03-06 11:05 | Progress Note ---
Assessment and Plan Assessment: 1) Recurrent SIRS: new fever again ? resolved - Likely due to recurrent Enterococcus bacteremia should r/o endocarditis 2) History of Peritonitis: from gastric perforation from dislodged PEG with significant ascites -S/P exlap, repair of gastric perforation with wedge gastrectomy, abdominal washout, drain placement on 10/05 3) History of Candidemia: -Blood cultures positive for Silvia albicans on 09/23 and 09/25 -Blood cultures negative on 09/30 -PICC line changed on 10/03 -Source ? gastric perf (PEG placed on 09/20) +/- TPN +/- central lines -TTE 10/07 no vegetations -PICC exchanged on 10/03 -fully treated with micafungin for 14 days last day 10/13 4) History CA-UTI s/p gutierrez exchanged 5) Diarrhea - ? etiology ? antibiotic-induced, not better. 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 from GI bleed 13) Recent abdominal wall abscess at surgical site-treated 14 ) Recent Enterococcal bacteremia from PICC line infection. 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 -S/P debridement at bedside - new wound cx 01/24 +Proteus and MDR Pseudomonas (resistant to meropenem and cefepime/sensitive to ceftazidime) and wound VAC placement -CRP=24 --> 8 16) Presumed VAP: sputum + MDR Pseudomonas / Proteus / pleural effusion s/p thoracentesis 17) Resp failure - better 18) Perforated bowel: Ct showed presumed perf bowel with free air 19) Enterococcal septicemia from IV cath. TTE no vegetations Plan: -repeat blood cultures - pending -permcath removed on 03/03 / PICC was removed -continue vancomycin for now total 14 days from perm cath removal until 03/16 [address] you Dr Pierre for your consultation, will follow up with you. Pauline Carias MD Infectious Diseases Specialist [facility] M [phone] O [phone] Subjective Date of service: 03/06/17 Principal diagnosis: Acute resp failure on MVS; S/P Acute CVA; Acute Encephalopathy; JUANITA Interval history: Interval history: remains on the vent, tachy on monitor, on amiodarone gtt, had fever on 03/05 Microbiology: Blood cultures: 09/13 neg 8/ Silvia albicans 09/25 Silvia 09/29 neg 10/07 neg 11/05 neg 11/07 ngtd 10 E faecalis 1 of 4 bottles 11/25 neg 12/27 neg 01/09 ngtd 02/14 ngtd 02/27 Enterococcus durans 1 of 4 bottles Urine cultures: 09/10 neg 09/13 neg 8/ 10-100K mixed species 10/07 neg 11/05 VRE 11/07 mixed bacteria Respiratory cultures: 09/07 neg 09/13 neg 09/23 neg 11/07 MDR Pseudomonas 10 tracheal + VRE 01/09 Pseudomonas x 3 and Proteues Pleural effusion: ngtd Wound cultures: 10/17 abd wall wound purulence + Pseudomonas MDR 01/24 GNRs Stool cultures: cath tip 11/07 + 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 +NGT with greenish secretion Neck: +trach in place; supple, no thyromegaly or lymphadenopathy Lungs: brit coarse BS CV: tachy Abdomen: Soft, tender, +old PEG site no drainage. +iliostomy. Right sided Surgical site x 2 with ostomy bags Extremities: +peripheral edema Skin: sacral area wounds - per wound care STAGE 4 PRESSURE INJURY TO SACRAL MEASURES 7.5X6X2.5, WITH UNDERMINING FROM @9-1 OCLOCK-2.8CM-ULCER CLEANED WITH WOUND ENDBAND CUTTER HAND-ULCER NEW - Sacrum wound measuring 9x11cm. Necrotic tissue noted on the wound edges and in the wound bed Now with a wound VAC Psych: somnolent . Neuro: alert non verbal on the vent. Lines: PICC / gutierrez - Constitutional Vitals: Vital Signs Temp Pulse Resp BP Pulse Ox 97.7 F 101 H 24 121/63 91 03/06/17 08:00 03/06/17 10:01 03/06/17 10:01 03/06/17 10:01 03/06/17 09:01 Temperature -Last 24 Hours Temperature 97.7 F Temperature 99.1 F Temperature 99.3 F Temperature 100.1 F Temperature 100.8 F Temperature 99.0 F - Labs CBC & Chem 7: 02/24/17 10:05 03/06/17 03:52 Labs: Abnormal lab results 03/06/17 Range/Units 03:52 Sodium 136 L (137-145) mmol/L Potassium 5.9 H (3.6-5.0) mmol/L Chloride 96.0 L (98-107) mmol/L Carbon Dioxide 21 L (22-30) mmol/L BUN 70 H (7-17) mg/dL Creatinine 3.0 H (0.7-1.2) mg/dL Phosphorus 6.00 H D (2.5-4.5) mg/dL Magnesium 2.60 H (1.7-2.3) mg/dL Alkaline Phosphatase 165 H (35-129) units/L Albumin 1.5 L (3.9-5) g/dL
[2017-03-06] MEDS ORDERED: KIONEX PO ONE (12:00)
[2017-03-06] MEDS: REGLAN IV SCH ×3 (13:46→22:18)
--- NOTE | 2017-03-06 14:55 | Progress Note ---
Assessment and Plan Acute Hypoxemic Respiratory Failure (now with exacerbation and back on MVS) Hypertension (unable to receive p.o. meds) Atrial Fibrillation with RVR s/p tracheostomy Acute encephalopathy s/p CVA Oropharyngeal dysphagia Enterococcal bacteremia sepsis syndrome Sacral Decubitus Ulcer (s/p surgical debridement) Anemia Obesity JUANITA now on hemodialysis Enteric Fistula - keep on with daily t-piece/PSV trials as tolerated - continue scheduled IV metoprolol with hold parameters - follow 2D ECHO re: ? SBE - stop Amiodarone drip once rate better controlled - continue to hold tube feeds due to continued intolerance; continue reglan at 10mg IV q8h - continue NGT to LIS - continue TPN - remains on amiodarone drip for persistent tachycardia - prn CXR's at this point - appreciate surgery input - continue fentanyl patch for pain issues especially s/p debridement - continue wound care per WCT and RN's (she is s/p surgical debridement) - continue anti-infectives per ID recs (Vancomycin now) - prn CRP & lactate levels if clinically indicated (Follow WBC also) - continue TPN administration (Change to PPN re: vascular access issues) - continue robinul & scopolamine for secretion control - continue to wean FiO2 for sats > 94% - continue bronchodilators and pulmonary toilet - VAP bundle addressed - continue to follow electrolytes and correct as necessary - continue GI & VTE prophylaxis - Continue flu & pneumovax per protocol - ethics consult placed and pending .....she remains critically ill on life sustaining interventions including MVS and at risk for further deterioration including ....30' CCT ....care plan discussed at length during team rounds ...long-term prognosis remains guarded and this has intermittently been conveyed to family Subjective Date of service: 03/06/17 Principal diagnosis: Acute resp failure on MVS; S/P Acute CVA; Acute Encephalopathy; JUANITA Interval history: Patient is seen today for: Acute resp failure on MVS; S/P Acute CVA; Acute Encephalopathy; JUANITA Seen and examined at bedside; 24hour events reviewed; nursing and respiratory care staff consulted; no adverse overnight events reported to me; remains on MVS ; no new issues; AMS is persistent; no gross bleeding; no active seizures; she is posturing intermittently now (decerebrate) Objective Vital Signs - 12hr 03/06/17 03/06/17 03/06/17 03:01 03:33 04:00 Temperature 99.1 F Pulse Rate 106 H 107 H 110 H Pulse Rate [ From Monitor] Pulse Rate [ Throughout] Respiratory 16 18 Rate Respiratory Rate [ Throughout] Blood Pressure 125/61 125/61 118/65 O2 Sat by Pulse 94 97 92 Oximetry O2 Sat by Pulse Oximetry [ Assessment] 03/06/17 03/06/17 03/06/17 05:01 06:01 07:01 Temperature Pulse Rate 109 H 112 H 114 H Pulse Rate [ From Monitor] Pulse Rate [ Throughout] Respiratory 15 18 16 Rate Respiratory Rate [ Throughout] Blood Pressure 115/60 127/66 133/67 O2 Sat by Pulse 93 96 94 Oximetry O2 Sat by Pulse Oximetry [ Assessment] 03/06/17 03/06/17 03/06/17 07:33 08:00 08:01 Temperature 97.7 F Pulse Rate 110 H 119 H Pulse Rate [ From Monitor] Pulse Rate [ Throughout] Respiratory 21 Rate Respiratory Rate [ Throughout] Blood Pressure 133/67 133/74 O2 Sat by Pulse 94 97 92 Oximetry O2 Sat by Pulse 96 Oximetry [ Assessment] 03/06/17 03/06/17 03/06/17 08:33 08:41 09:01 Temperature Pulse Rate 115 H Pulse Rate [ From Monitor] Pulse Rate [ 116 H 115 H Throughout] Respiratory 19 Rate Respiratory 20 20 Rate [ Throughout] Blood Pressure 117/62 O2 Sat by Pulse 91 Oximetry O2 Sat by Pulse Oximetry [ Assessment] 03/06/17 03/06/17 03/06/17 09:40 10:01 11:01 Temperature Pulse Rate 115 H 101 H 104 H Pulse Rate [ From Monitor] Pulse Rate [ Throughout] Respiratory 24 25 H Rate Respiratory Rate [ Throughout] Blood Pressure 117/62 121/63 123/63 O2 Sat by Pulse Oximetry O2 Sat by Pulse Oximetry [ Assessment] 03/06/17 03/06/17 03/06/17 11:05 12:00 12:01 Temperature 108 F H Pulse Rate 105 H 111 H Pulse Rate [ 116 H From Monitor] Pulse Rate [ Throughout] Respiratory 21 Rate Respiratory Rate [ Throughout] Blood Pressure 123/63 129/71 O2 Sat by Pulse 95 88 Oximetry O2 Sat by Pulse Oximetry [ Assessment] 03/06/17 03/06/17 03/06/17 13:01 14:00 14:10 Temperature Pulse Rate 111 H Pulse Rate [ From Monitor] Pulse Rate [ 105 H 106 H Throughout] Respiratory 20 Rate Respiratory 20 20 Rate [ Throughout] Blood Pressure 119/70 O2 Sat by Pulse 88 Oximetry O2 Sat by Pulse Oximetry [ Assessment] 03/06/17 14:38 Temperature Pulse Rate 111 H Pulse Rate [ From Monitor] Pulse Rate [ Throughout] Respiratory Rate Respiratory Rate [ Throughout] Blood Pressure 121/66 O2 Sat by Pulse Oximetry O2 Sat by Pulse Oximetry [ Assessment] Constitutional: appears uncomfortable, other (not tracking) Eyes: non-icteric, other (tracheostomy tube in midline of neck) ENT: oropharynx moist, oropharyngeal exudate pre, other (midline tracheostomy tube) Neck: supple, no lymphadenopathy, no JVD, other (no thyromegaly) Effort: mildly labored Ascultation: Bilateral: rhonchi (and referred upper airway sounds) Percussion: Bilateral: not dull Cardiovascular: regular rate and rhythm, other (no rubs / murmurs) Gastrointestinal: hypoactive bowel sounds, soft, non-tender, non-distended, other (RLQ & LUQ stomas with colostomy bags) Integumentary: decubitus ulcer (sacral; stage 4 s/p surgical debridement), other (no rash; no cellulitis; poor turgor) Extremities: no cyanosis, pulses normal, no ischemia or petechiae, edema (1+ bilaterally) Neurologic: pupils equal and round, unable to assess, other (encephalopathic) Psychiatric: other (unable to assess) CBC and BMP: 02/24/17 10:05 03/09/17 05:20 ABG, PT/INR, D-dimer: ABG POC ABG pH 7.518 (7.35-7.45) H 03/03/17 20:17 ABG pH 7.450 pH Units (7.350-7.450) 12/05/16 Unknown POC ABG pCO2 28.8 (35-45) L 03/03/17 20:17 ABG pCO2 29.6 mm Hg 12/05/16 Unknown POC ABG pO2 61 (80-105) L 03/03/17 20:17 ABG pO2 75.2 mm Hg (80.0-90.0) L 12/05/16 Unknown POC ABG HCO3 23.4 03/03/17 20:17 POC ABG Total CO2 24 03/03/17 20:17 POC ABG O2 Sat 94 03/03/17 20:17 ABG O2 Saturation 96.8 % (95.0-99.0) 12/05/16 Unknown PT/INR, D-dimer PT 15.4 Sec. (12.2-14.9) H 01/13/17 15:50 INR 1.16 (0.87-1.13) H 01/13/17 15:50 Abnormal lab findings: Abnormal Labs 09/03/16 09/03/16 09/03/16 00:03 00:10 00:10 WBC 13.9 H RBC 5.95 H Hgb Hct 44.0 H MCV 74 L MCH 22 L MCHC RDW 17.5 H Plt Count Lymph % (Auto) [place] % (Auto) Lymph # [place] # Baso # Seg Neutrophils % Seg Neuts % (Manual) Lymphocytes % (Manual) 54.0 H Monocytes % (Manual) Eosinophils % (Manual) Basophils % (Manual) Nucleated RBC % Seg Neutrophils # Seg Neutrophils # Man Lymphocytes # (Manual) 7.5 H Monocytes # (Manual) Eosinophils # (Manual) Basophils # (Manual) PT INR Fibrinogen dRVVT Confirm Interp Factor V Activity POC ABG pH POC ABG pCO2 POC ABG pO2 ABG pO2 ABG HCO3 ABG Base Excess ABG Hemoglobin Oxyhemoglobin Sodium Potassium 2.8 L* Chloride Carbon Dioxide 21 L BUN Creatinine 1.7 H Glucose 159 H POC Glucose 177 H Lactic Acid Calcium Ionized Calcium Phosphorus Magnesium Direct Bilirubin AST ALT Alkaline Phosphatase Lactate Dehydrogenase Troponin T C-Reactive Protein Total Protein Albumin Prealbumin Triglycerides Cholesterol LDL Cholesterol Direct HDL Cholesterol 25-OH Vitamin D Total PTH Intact Urine pH Urine WBC (Auto) Urine Creatinine Urine Total Protein Fluid Total Protein Vancomycin Trough Rheumatoid Factor Complement C4 Miscellaneous Test Crossmatch 09/03/16 09/03/16 09/03/16 12:12 15:07 16:20 WBC RBC Hgb Hct MCV MCH MCHC RDW Plt Count Lymph % (Auto) [place] % (Auto) Lymph # [place] # Baso # Seg Neutrophils % Seg Neuts % (Manual) Lymphocytes % (Manual) Monocytes % (Manual) Eosinophils % (Manual) Basophils % (Manual) Nucleated RBC % Seg Neutrophils # Seg Neutrophils # Man Lymphocytes # (Manual) Monocytes # (Manual) Eosinophils # (Manual) Basophils # (Manual) PT INR Fibrinogen dRVVT Confirm Interp Factor V Activity POC ABG pH 7.452 H POC ABG pCO2 POC ABG pO2 ABG pO2 ABG HCO3 ABG Base Excess ABG Hemoglobin Oxyhemoglobin Sodium Potassium Chloride Carbon Dioxide BUN Creatinine Glucose POC Glucose 178 H Lactic Acid Calcium Ionized Calcium Phosphorus 2.20 L Magnesium 1.60 L Direct Bilirubin AST ALT Alkaline Phosphatase Lactate Dehydrogenase Troponin T C-Reactive Protein Total Protein Albumin Prealbumin Triglycerides Cholesterol LDL Cholesterol Direct HDL Cholesterol 25-OH Vitamin D Total PTH Intact Urine pH Urine WBC (Auto) Urine Creatinine Urine Total Protein Fluid Total Protein Vancomycin Trough Rheumatoid Factor Complement C4 Miscellaneous Test Crossmatch 09/03/16 09/03/16 09/03/16 17:57 17:58 23:50 WBC RBC Hgb Hct MCV MCH MCHC RDW Plt Count Lymph % (Auto) [place] % (Auto) Lymph # [place] # Baso # Seg Neutrophils % Seg Neuts % (Manual) Lymphocytes % (Manual) Monocytes % (Manual) Eosinophils % (Manual) Basophils % (Manual) Nucleated RBC % Seg Neutrophils # Seg Neutrophils # Man Lymphocytes # (Manual) Monocytes # (Manual) Eosinophils # (Manual) Basophils # (Manual) PT INR Fibrinogen dRVVT Confirm Interp Factor V Activity POC ABG pH POC ABG pCO2 POC ABG pO2 ABG pO2 ABG HCO3 ABG Base Excess ABG Hemoglobin Oxyhemoglobin Sodium Potassium Chloride Carbon Dioxide BUN Creatinine Glucose POC Glucose 162 H 145 H Lactic Acid Calcium Ionized Calcium Phosphorus 2.30 L Magnesium Direct Bilirubin AST ALT Alkaline Phosphatase Lactate Dehydrogenase Troponin T C-Reactive Protein Total Protein Albumin Prealbumin Triglycerides Cholesterol LDL Cholesterol Direct HDL Cholesterol 25-OH Vitamin D Total PTH Intact Urine pH Urine WBC (Auto) Urine Creatinine Urine Total Protein Fluid Total Protein Vancomycin Trough Rheumatoid Factor Complement C4 Miscellaneous Test Crossmatch 09/04/16 09/04/16 09/04/16 03:31 03:31 05:42 WBC RBC Hgb 9.7 L D Hct MCV 72 L MCH 23 L MCHC RDW 17.5 H Plt Count Lymph % (Auto) 11.[address] [place] % (Auto) Lymph # [place] # Baso # Seg Neutrophils % 84.3 H Seg Neuts % (Manual) Lymphocytes % (Manual) Monocytes % (Manual) Eosinophils % (Manual) Basophils % (Manual) Nucleated RBC % Seg Neutrophils # 8.9 H Seg Neutrophils # Man Lymphocytes # (Manual) Monocytes # (Manual) Eosinophils # (Manual) Basophils # (Manual) PT INR Fibrinogen dRVVT Confirm Interp Factor V Activity POC ABG pH POC ABG pCO2 POC ABG pO2 ABG pO2 ABG HCO3 ABG Base Excess ABG Hemoglobin Oxyhemoglobin Sodium 135 L Potassium 2.9 L* Chloride 97.2 L Carbon Dioxide 19 L BUN Creatinine 1.7 H Glucose 170 H POC Glucose 152 H Lactic Acid Calcium Ionized Calcium Phosphorus Magnesium Direct Bilirubin AST ALT Alkaline Phosphatase Lactate Dehydrogenase Troponin T C-Reactive Protein Total Protein Albumin Prealbumin Triglycerides 160 H Cholesterol LDL Cholesterol Direct HDL Cholesterol 31 L 25-OH Vitamin D Total PTH Intact Urine pH Urine WBC (Auto) Urine Creatinine Urine Total Protein Fluid Total Protein Vancomycin Trough Rheumatoid Factor Complement C4 Miscellaneous Test Crossmatch 09/04/16 09/04/16 09/04/16 11:34 17:46 23:29 WBC RBC Hgb Hct MCV MCH MCHC RDW Plt Count Lymph % (Auto) [place] % (Auto) Lymph # [place] # Baso # Seg Neutrophils % Seg Neuts % (Manual) Lymphocytes % (Manual) Monocytes % (Manual) Eosinophils % (Manual) Basophils % (Manual) Nucleated RBC % Seg Neutrophils # Seg Neutrophils # Man Lymphocytes # (Manual) Monocytes # (Manual) Eosinophils # (Manual) Basophils # (Manual) PT INR Fibrinogen dRVVT Confirm Interp Factor V Activity POC ABG pH POC ABG pCO2 POC ABG pO2 ABG pO2 ABG HCO3 ABG Base Excess ABG Hemoglobin Oxyhemoglobin Sodium Potassium Chloride Carbon Dioxide BUN Creatinine Glucose POC Glucose 165 H 210 H 139 H Lactic Acid Calcium Ionized Calcium Phosphorus Magnesium Direct Bilirubin AST ALT Alkaline Phosphatase Lactate Dehydrogenase Troponin T C-Reactive Protein Total Protein Albumin Prealbumin Triglycerides Cholesterol LDL Cholesterol Direct HDL Cholesterol 25-OH Vitamin D Total PTH Intact Urine pH Urine WBC (Auto) Urine Creatinine Urine Total Protein Fluid Total Protein Vancomycin Trough Rheumatoid Factor Complement C4 Miscellaneous Test Crossmatch 09/05/16 09/05/16 09/05/16 04:05 04:05 05:38 WBC RBC Hgb Hct MCV 76 L D MCH 23 L MCHC RDW 17.8 H Plt Count Lymph % (Auto) [place] % (Auto) Lymph # [place] # Baso # Seg Neutrophils % Seg Neuts % (Manual) Lymphocytes % (Manual) Monocytes % (Manual) Eosinophils % (Manual) Basophils % (Manual) Nucleated RBC % Seg Neutrophils # Seg Neutrophils # Man Lymphocytes # (Manual) Monocytes # (Manual) Eosinophils # (Manual) Basophils # (Manual) PT INR Fibrinogen dRVVT Confirm Interp Factor V Activity POC ABG pH POC ABG pCO2 POC ABG pO2 ABG pO2 ABG HCO3 ABG Base Excess ABG Hemoglobin Oxyhemoglobin Sodium 134 L Potassium Chloride Carbon Dioxide 18 L BUN Creatinine 1.8 H Glucose 192 H POC Glucose 175 H Lactic Acid Calcium Ionized Calcium Phosphorus Magnesium Direct Bilirubin AST ALT Alkaline Phosphatase Lactate Dehydrogenase Troponin T C-Reactive Protein Total Protein Albumin Prealbumin Triglycerides Cholesterol LDL Cholesterol Direct HDL Cholesterol 25-OH Vitamin D Total PTH Intact Urine pH Urine WBC (Auto) Urine Creatinine Urine Total Protein Fluid Total Protein Vancomycin Trough Rheumatoid Factor Complement C4 Miscellaneous Test Crossmatch 09/05/16 09/05/16 09/05/16 11:38 17:48 23:22 WBC RBC Hgb Hct MCV MCH MCHC RDW Plt Count Lymph % (Auto) [place] % (Auto) Lymph # [place] # Baso # Seg Neutrophils % Seg Neuts % (Manual) Lymphocytes % (Manual) Monocytes % (Manual) Eosinophils % (Manual) Basophils % (Manual) Nucleated RBC % Seg Neutrophils # Seg Neutrophils # Man Lymphocytes # (Manual) Monocytes # (Manual) Eosinophils # (Manual) Basophils # (Manual) PT INR Fibrinogen dRVVT Confirm Interp Factor V Activity POC ABG pH POC ABG pCO2 POC ABG pO2 ABG pO2 ABG HCO3 ABG Base Excess ABG Hemoglobin Oxyhemoglobin Sodium Potassium Chloride Carbon Dioxide BUN Creatinine Glucose POC Glucose 164 H 186 H 195 H Lactic Acid Calcium Ionized Calcium Phosphorus Magnesium Direct Bilirubin AST ALT Alkaline Phosphatase Lactate Dehydrogenase Troponin T C-Reactive Protein Total Protein Albumin Prealbumin Triglycerides Cholesterol LDL Cholesterol Direct HDL Cholesterol 25-OH Vitamin D Total PTH Intact Urine pH Urine WBC (Auto) Urine Creatinine Urine Total Protein Fluid Total Protein Vancomycin Trough Rheumatoid Factor Complement C4 Miscellaneous Test Crossmatch 09/06/16 09/06/16 09/06/16 04:12 05:59 07:32 WBC RBC Hgb Hct MCV MCH MCHC RDW Plt Count Lymph % (Auto) [place] % (Auto) Lymph # [place] # Baso # Seg Neutrophils % Seg Neuts % (Manual) Lymphocytes % (Manual) Monocytes % (Manual) Eosinophils % (Manual) Basophils % (Manual) Nucleated RBC % Seg Neutrophils # Seg Neutrophils # Man Lymphocytes # (Manual) Monocytes # (Manual) Eosinophils # (Manual) Basophils # (Manual) PT INR Fibrinogen dRVVT Confirm Interp Factor V Activity POC ABG pH 7.514 H POC ABG pCO2 29.1 L POC ABG pO2 72 L ABG pO2 ABG HCO3 ABG Base Excess ABG Hemoglobin Oxyhemoglobin Sodium 133 L Potassium 3.4 L Chloride 94.9 L Carbon Dioxide 19 L BUN 30 H Creatinine 2.1 H Glucose 139 H POC Glucose 146 H Lactic Acid Calcium Ionized Calcium Phosphorus Magnesium Direct Bilirubin AST ALT Alkaline Phosphatase Lactate Dehydrogenase Troponin T C-Reactive Protein Total Protein Albumin Prealbumin Triglycerides Cholesterol LDL Cholesterol Direct HDL Cholesterol 25-OH Vitamin D Total PTH Intact Urine pH Urine WBC (Auto) Urine Creatinine Urine Total Protein Fluid Total Protein Vancomycin Trough Rheumatoid Factor Complement C4 Miscellaneous Test Crossmatch 09/06/16 09/06/16 09/06/16 11:57 17:58 19:02 WBC RBC Hgb Hct MCV MCH MCHC RDW Plt Count Lymph % (Auto) [place] % (Auto) Lymph # [place] # Baso # Seg Neutrophils % Seg Neuts % (Manual) Lymphocytes % (Manual) Monocytes % (Manual) Eosinophils % (Manual) Basophils % (Manual) Nucleated RBC % Seg Neutrophils # Seg Neutrophils # Man Lymphocytes # (Manual) Monocytes # (Manual) Eosinophils # (Manual) Basophils # (Manual) PT INR Fibrinogen dRVVT Confirm Interp Factor V Activity POC ABG pH 7.465 H POC ABG pCO2 32.0 L POC ABG pO2 ABG pO2 ABG HCO3 ABG Base Excess ABG Hemoglobin Oxyhemoglobin Sodium Potassium Chloride Carbon Dioxide BUN Creatinine Glucose POC Glucose 165 H 160 H Lactic Acid Calcium Ionized Calcium Phosphorus Magnesium Direct Bilirubin AST ALT Alkaline Phosphatase Lactate Dehydrogenase Troponin T C-Reactive Protein Total Protein Albumin Prealbumin Triglycerides Cholesterol LDL Cholesterol Direct HDL Cholesterol 25-OH Vitamin D Total PTH Intact Urine pH Urine WBC (Auto) Urine Creatinine Urine Total Protein Fluid Total Protein Vancomycin Trough Rheumatoid Factor Complement C4 Miscellaneous Test Crossmatch 09/06/16 09/07/16 09/07/16 23:45 02:47 02:47 WBC RBC Hgb Hct MCV MCH MCHC RDW Plt Count Lymph % (Auto) [place] % (Auto) Lymph # [place] # Baso # Seg Neutrophils % Seg Neuts % (Manual) Lymphocytes % (Manual) Monocytes % (Manual) Eosinophils % (Manual) Basophils % (Manual) Nucleated RBC % Seg Neutrophils # Seg Neutrophils # Man Lymphocytes # (Manual) Monocytes # (Manual) Eosinophils # (Manual) Basophils # (Manual) PT INR Fibrinogen dRVVT Confirm Interp Factor V Activity POC ABG pH POC ABG pCO2 POC ABG pO2 ABG pO2 ABG HCO3 ABG Base Excess ABG Hemoglobin Oxyhemoglobin Sodium Potassium Chloride Carbon Dioxide BUN Creatinine Glucose POC Glucose 204 H Lactic Acid Calcium Ionized Calcium Phosphorus Magnesium Direct Bilirubin AST ALT Alkaline Phosphatase Lactate Dehydrogenase Troponin T C-Reactive Protein Total Protein Albumin Prealbumin Triglycerides Cholesterol LDL Cholesterol Direct HDL Cholesterol 25-OH Vitamin D Total PTH Intact Urine pH Urine WBC (Auto) 68.0 H Urine Creatinine 106.1 H Urine Total Protein Fluid Total Protein Vancomycin Trough Rheumatoid Factor Complement C4 Miscellaneous Test Crossmatch 09/07/16 09/07/16 09/07/16 04:50 06:19 06:39 WBC RBC Hgb Hct MCV MCH MCHC RDW Plt Count Lymph % (Auto) [place] % (Auto) Lymph # [place] # Baso # Seg Neutrophils % Seg Neuts % (Manual) Lymphocytes % (Manual) Monocytes % (Manual) Eosinophils % (Manual) Basophils % (Manual) Nucleated RBC % Seg Neutrophils # Seg Neutrophils # Man Lymphocytes # (Manual) Monocytes # (Manual) Eosinophils # (Manual) Basophils # (Manual) PT INR Fibrinogen dRVVT Confirm Interp Factor V Activity POC ABG pH 7.457 H POC ABG pCO2 32.1 L POC ABG pO2 76 L ABG pO2 ABG HCO3 ABG Base Excess ABG Hemoglobin Oxyhemoglobin Sodium 132 L Potassium Chloride 94.7 L Carbon Dioxide BUN 53 H Creatinine 2.9 H Glucose 151 H POC Glucose 149 H Lactic Acid Calcium Ionized Calcium Phosphorus Magnesium Direct Bilirubin AST ALT Alkaline Phosphatase Lactate Dehydrogenase Troponin T C-Reactive Protein Total Protein Albumin Prealbumin Triglycerides Cholesterol LDL Cholesterol Direct HDL Cholesterol 25-OH Vitamin D Total PTH Intact Urine pH Urine WBC (Auto) Urine Creatinine Urine Total Protein Fluid Total Protein Vancomycin Trough Rheumatoid Factor Complement C4 Miscellaneous Test Crossmatch 09/07/16 09/07/16 09/07/16 09:20 11:43 11:43 WBC 19.4 H RBC Hgb 8.3 L Hct 26.4 L D MCV 72 L D MCH 22 L MCHC RDW 17.9 H Plt Count Lymph % (Auto) 8.[address] [place] % (Auto) Lymph # [place] # 1.0 H Baso # Seg Neutrophils % 85.8 H Seg Neuts % (Manual) Lymphocytes % (Manual) Monocytes % (Manual) Eosinophils % (Manual) Basophils % (Manual) Nucleated RBC % Seg Neutrophils # 16.6 H Seg Neutrophils # Man Lymphocytes # (Manual) Monocytes # (Manual) Eosinophils # (Manual) Basophils # (Manual) PT INR Fibrinogen dRVVT Confirm Interp Factor V Activity POC ABG pH POC ABG pCO2 POC ABG pO2 ABG pO2 ABG HCO3 ABG Base Excess ABG Hemoglobin Oxyhemoglobin Sodium 134 L Potassium Chloride 97.2 L Carbon Dioxide 20 L BUN 58 H Creatinine 2.9 H Glucose 147 H POC Glucose Lactic Acid Calcium Ionized Calcium Phosphorus 2.40 L Magnesium 2.40 H Direct Bilirubin AST ALT Alkaline Phosphatase Lactate Dehydrogenase Troponin T C-Reactive Protein Total Protein 5.8 L Albumin 2.2 L Prealbumin Triglycerides Cholesterol LDL Cholesterol Direct HDL Cholesterol 25-OH Vitamin D Total PTH Intact Urine pH Urine WBC (Auto) Urine Creatinine Urine Total Protein Fluid Total Protein Vancomycin Trough Rheumatoid Factor Complement C4 58 H Miscellaneous Test Crossmatch 09/07/16 09/07/16 09/07/16 11:50 16:00 17:31 WBC RBC Hgb Hct MCV MCH MCHC RDW Plt Count Lymph % (Auto) [place] % (Auto) Lymph # [place] # Baso # Seg Neutrophils % Seg Neuts % (Manual) Lymphocytes % (Manual) Monocytes % (Manual) Eosinophils % (Manual) Basophils % (Manual) Nucleated RBC % Seg Neutrophils # Seg Neutrophils # Man Lymphocytes # (Manual) Monocytes # (Manual) Eosinophils # (Manual) Basophils # (Manual) PT INR Fibrinogen dRVVT Confirm Interp Factor V Activity POC ABG pH POC ABG pCO2 POC ABG pO2 158 H ABG pO2 ABG HCO3 ABG Base Excess ABG Hemoglobin Oxyhemoglobin Sodium Potassium Chloride Carbon Dioxide BUN Creatinine Glucose POC Glucose 175 H Lactic Acid Calcium Ionized Calcium Phosphorus Magnesium Direct Bilirubin AST ALT Alkaline Phosphatase Lactate Dehydrogenase Troponin T C-Reactive Protein Total Protein Albumin Prealbumin Triglycerides Cholesterol LDL Cholesterol Direct HDL Cholesterol 25-OH Vitamin D Total PTH Intact Urine pH Urine WBC (Auto) Urine Creatinine 66.3 H Urine Total Protein Fluid Total Protein Vancomycin Trough Rheumatoid Factor Complement C4 Miscellaneous Test Crossmatch 09/07/16 09/08/16 09/08/16 23:50 05:46 06:18 WBC 17.8 H RBC 3.58 L Hgb 8.1 L Hct 25.5 L MCV 71 L MCH 23 L MCHC RDW 18.4 H Plt Count Lymph % (Auto) [place] % (Auto) Lymph # [place] # Baso # Seg Neutrophils % Seg Neuts % (Manual) 92.0 H Lymphocytes % (Manual) 6.0 L Monocytes % (Manual) Eosinophils % (Manual) Basophils % (Manual) Nucleated RBC % Seg Neutrophils # Seg Neutrophils # Man 16.4 H Lymphocytes # (Manual) 1.1 L Monocytes # (Manual) Eosinophils # (Manual) Basophils # (Manual) PT INR Fibrinogen dRVVT Confirm Interp Factor V Activity POC ABG pH POC ABG pCO2 34.3 L POC ABG pO2 71 L ABG pO2 ABG HCO3 ABG Base Excess ABG Hemoglobin Oxyhemoglobin Sodium Potassium Chloride Carbon Dioxide BUN Creatinine Glucose POC Glucose 216 H Lactic Acid Calcium Ionized Calcium Phosphorus Magnesium Direct Bilirubin AST ALT Alkaline Phosphatase Lactate Dehydrogenase Troponin T C-Reactive Protein Total Protein Albumin Prealbumin Triglycerides Cholesterol LDL Cholesterol Direct HDL Cholesterol 25-OH Vitamin D Total PTH Intact Urine pH Urine WBC (Auto) Urine Creatinine Urine Total Protein Fluid Total Protein Vancomycin Trough Rheumatoid Factor Complement C4 Miscellaneous Test Crossmatch 09/08/16 09/08/16 09/08/16 06:18 06:51 10:55 WBC RBC Hgb Hct MCV MCH MCHC RDW Plt Count Lymph % (Auto) [place] % (Auto) Lymph # [place] # Baso # Seg Neutrophils % Seg Neuts % (Manual) Lymphocytes % (Manual) Monocytes % (Manual) Eosinophils % (Manual) Basophils % (Manual) Nucleated RBC % Seg Neutrophils # Seg Neutrophils # Man Lymphocytes # (Manual) Monocytes # (Manual) Eosinophils # (Manual) Basophils # (Manual) PT INR Fibrinogen dRVVT Confirm Interp Factor V Activity POC ABG pH POC ABG pCO2 POC ABG pO2 ABG pO2 ABG HCO3 ABG Base Excess ABG Hemoglobin Oxyhemoglobin Sodium 133 L Potassium Chloride 96.9 L Carbon Dioxide 20 L BUN 63 H Creatinine 2.7 H Glucose 195 H POC Glucose 204 H 169 H Lactic Acid Calcium Ionized Calcium Phosphorus Magnesium Direct Bilirubin AST ALT Alkaline Phosphatase Lactate Dehydrogenase Troponin T C-Reactive Protein Total Protein Albumin Prealbumin Triglycerides Cholesterol LDL Cholesterol Direct HDL Cholesterol 25-OH Vitamin D Total PTH Intact Urine pH Urine WBC (Auto) Urine Creatinine Urine Total Protein Fluid Total Protein Vancomycin Trough Rheumatoid Factor Complement C4 Miscellaneous Test Crossmatch 09/08/16 09/08/1617 11:48 11:48 11:48 WBC RBC Hgb Hct MCV MCH MCHC RDW Plt Count Lymph % (Auto) [place] % (Auto) Lymph # [place] # Baso # Seg Neutrophils % Seg Neuts % (Manual) Lymphocytes % (Manual) Monocytes % (Manual) Eosinophils % (Manual) Basophils % (Manual) Nucleated RBC % Seg Neutrophils # Seg Neutrophils # Man Lymphocytes # (Manual) Monocytes # (Manual) Eosinophils # (Manual) Basophils # (Manual) PT INR Fibrinogen 750 H dRVVT Confirm Interp Factor V Activity POC ABG pH POC ABG pCO2 POC ABG pO2 ABG pO2 ABG HCO3 ABG Base Excess ABG Hemoglobin Oxyhemoglobin Sodium Potassium Chloride Carbon Dioxide BUN Creatinine Glucose POC Glucose Lactic Acid Calcium Ionized Calcium Phosphorus Magnesium Direct Bilirubin AST ALT Alkaline Phosphatase Lactate Dehydrogenase Troponin T C-Reactive Protein 15.70 H Total Protein Albumin Prealbumin Triglycerides Cholesterol LDL Cholesterol Direct HDL Cholesterol 25-OH Vitamin D Total PTH Intact Urine pH Urine WBC (Auto) Urine Creatinine Urine Total Protein Fluid Total Protein Vancomycin Trough Rheumatoid Factor 24 H Complement C4 Miscellaneous Test Crossmatch 09/08/16 09/08/16 09/09/16 15:35 18:25 00:24 WBC RBC Hgb Hct MCV MCH MCHC RDW Plt Count Lymph % (Auto) [place] % (Auto) Lymph # [place] # Baso # Seg Neutrophils % Seg Neuts % (Manual) Lymphocytes % (Manual) Monocytes % (Manual) Eosinophils % (Manual) Basophils % (Manual) Nucleated RBC % Seg Neutrophils # Seg Neutrophils # Man Lymphocytes # (Manual) Monocytes # (Manual) Eosinophils # (Manual) Basophils # (Manual) PT INR Fibrinogen dRVVT Confirm Interp Factor V Activity 182 H POC ABG pH POC ABG pCO2 POC ABG pO2 ABG pO2 ABG HCO3 ABG Base Excess ABG Hemoglobin Oxyhemoglobin Sodium Potassium Chloride Carbon Dioxide BUN Creatinine Glucose POC Glucose 184 H 216 H Lactic Acid Calcium Ionized Calcium Phosphorus Magnesium Direct Bilirubin AST ALT Alkaline Phosphatase Lactate Dehydrogenase Troponin T C-Reactive Protein Total Protein Albumin Prealbumin Triglycerides Cholesterol LDL Cholesterol Direct HDL Cholesterol 25-OH Vitamin D Total PTH Intact Urine pH Urine WBC (Auto) Urine Creatinine Urine Total Protein Fluid Total Protein Vancomycin Trough Rheumatoid Factor Complement C4 Miscellaneous Test Crossmatch 09/09/16 09/09/16 09/09/16 03:00 03:00 04:04 WBC 27.9 H RBC Hgb 8.7 L Hct 28.1 L MCV 72 L MCH 22 L MCHC RDW 18.4 H Plt Count 485 H Lymph % (Auto) [place] % (Auto) Lymph # [place] # Baso # Seg Neutrophils % Seg Neuts % (Manual) 77.0 H Lymphocytes % (Manual) 9.0 L Monocytes % (Manual) Eosinophils % (Manual) Basophils % (Manual) Nucleated RBC % Seg Neutrophils # Seg Neutrophils # Man 21.5 H Lymphocytes # (Manual) Monocytes # (Manual) 2.0 H Eosinophils # (Manual) Basophils # (Manual) PT INR Fibrinogen dRVVT Confirm Interp Factor V Activity POC ABG pH POC ABG pCO2 POC ABG pO2 121 H ABG pO2 ABG HCO3 ABG Base Excess ABG Hemoglobin Oxyhemoglobin Sodium 135 L Potassium Chloride 96.3 L Carbon Dioxide 21 L BUN 83 H Creatinine 3.0 H Glucose 135 H POC Glucose Lactic Acid Calcium Ionized Calcium Phosphorus Magnesium Direct Bilirubin AST ALT Alkaline Phosphatase Lactate Dehydrogenase Troponin T C-Reactive Protein Total Protein Albumin Prealbumin Triglycerides Cholesterol LDL Cholesterol Direct HDL Cholesterol 25-OH Vitamin D Total PTH Intact Urine pH Urine WBC (Auto) Urine Creatinine Urine Total Protein Fluid Total Protein Vancomycin Trough Rheumatoid Factor Complement C4 Miscellaneous Test Crossmatch 09/09/16 09/09/16 09/09/16 05:41 11:55 14:13 WBC RBC Hgb Hct MCV MCH MCHC RDW Plt Count Lymph % (Auto) [place] % (Auto) Lymph # [place] # Baso # Seg Neutrophils % Seg Neuts % (Manual) Lymphocytes % (Manual) Monocytes % (Manual) Eosinophils % (Manual) Basophils % (Manual) Nucleated RBC % Seg Neutrophils # Seg Neutrophils # Man Lymphocytes # (Manual) Monocytes # (Manual) Eosinophils # (Manual) Basophils # (Manual) PT INR Fibrinogen dRVVT Confirm Interp Factor V Activity POC ABG pH POC ABG pCO2 POC ABG pO2 ABG pO2 ABG HCO3 ABG Base Excess ABG Hemoglobin Oxyhemoglobin Sodium Potassium Chloride Carbon Dioxide BUN Creatinine Glucose POC Glucose 155 H 186 H Lactic Acid Calcium Ionized Calcium Phosphorus Magnesium Direct Bilirubin AST ALT Alkaline Phosphatase Lactate Dehydrogenase Troponin T C-Reactive Protein Total Protein Albumin Prealbumin Triglycerides Cholesterol LDL Cholesterol Direct HDL Cholesterol 25-OH Vitamin D Total PTH Intact Urine pH Urine WBC (Auto) 25.0 H Urine Creatinine Urine Total Protein Fluid Total Protein Vancomycin Trough Rheumatoid Factor Complement C4 Miscellaneous Test Crossmatch 09/09/16 09/09/16 09/10/16 17:33 23:13 05:09 WBC RBC Hgb Hct MCV MCH MCHC RDW Plt Count Lymph % (Auto) [place] % (Auto) Lymph # [place] # Baso # Seg Neutrophils % Seg Neuts % (Manual) Lymphocytes % (Manual) Monocytes % (Manual) Eosinophils % (Manual) Basophils % (Manual) Nucleated RBC % Seg Neutrophils # Seg Neutrophils # Man Lymphocytes # (Manual) Monocytes # (Manual) Eosinophils # (Manual) Basophils # (Manual) PT INR Fibrinogen dRVVT Confirm Interp Factor V Activity POC ABG pH POC ABG pCO2 POC ABG pO2 74 L ABG pO2 ABG HCO3 ABG Base Excess ABG Hemoglobin Oxyhemoglobin Sodium Potassium Chloride Carbon Dioxide BUN Creatinine Glucose POC Glucose 211 H 215 H Lactic Acid Calcium Ionized Calcium Phosphorus Magnesium Direct Bilirubin AST ALT Alkaline Phosphatase Lactate Dehydrogenase Troponin T C-Reactive Protein Total Protein Albumin Prealbumin Triglycerides Cholesterol LDL Cholesterol Direct HDL Cholesterol 25-OH Vitamin D Total PTH Intact Urine pH Urine WBC (Auto) Urine Creatinine Urine Total Protein Fluid Total Protein Vancomycin Trough Rheumatoid Factor Complement C4 Miscellaneous Test Crossmatch 09/10/16 09/10/16 09/10/16 05:17 05:17 11:31 WBC 15.8 H RBC 3.25 L Hgb 7.3 L Hct 22.9 L MCV 71 L MCH 23 L MCHC RDW 18.4 H Plt Count Lymph % (Auto) [place] % (Auto) Lymph # [place] # Baso # Seg Neutrophils % Seg Neuts % (Manual) 91.0 H Lymphocytes % (Manual) 4.0 L Monocytes % (Manual) Eosinophils % (Manual) Basophils % (Manual) Nucleated RBC % Seg Neutrophils # Seg Neutrophils # Man 14.4 H Lymphocytes # (Manual) 0.6 L Monocytes # (Manual) Eosinophils # (Manual) Basophils # (Manual) PT INR Fibrinogen dRVVT Confirm Interp Factor V Activity POC ABG pH POC ABG pCO2 POC ABG pO2 ABG pO2 ABG HCO3 ABG Base Excess ABG Hemoglobin Oxyhemoglobin Sodium Potassium Chloride Carbon Dioxide 21 L BUN 93 H Creatinine 2.9 H Glucose 146 H POC Glucose 188 H Lactic Acid Calcium 8.1 L Ionized Calcium Phosphorus Magnesium Direct Bilirubin AST ALT Alkaline Phosphatase Lactate Dehydrogenase Troponin T C-Reactive Protein Total Protein Albumin Prealbumin Triglycerides Cholesterol LDL Cholesterol Direct HDL Cholesterol 25-OH Vitamin D Total PTH Intact Urine pH Urine WBC (Auto) Urine Creatinine Urine Total Protein Fluid Total Protein Vancomycin Trough Rheumatoid Factor Complement C4 Miscellaneous Test Crossmatch 09/10/16 09/10/16 09/10/16 13:17 17:20 23:32 WBC RBC Hgb Hct MCV MCH MCHC RDW Plt Count Lymph % (Auto) [place] % (Auto) Lymph # [place] # Baso # Seg Neutrophils % Seg Neuts % (Manual) Lymphocytes % (Manual) Monocytes % (Manual) Eosinophils % (Manual) Basophils % (Manual) Nucleated RBC % Seg Neutrophils # Seg Neutrophils # Man Lymphocytes # (Manual) Monocytes # (Manual) Eosinophils # (Manual) Basophils # (Manual) PT INR Fibrinogen dRVVT Confirm Interp Factor V Activity POC ABG pH POC ABG pCO2 POC ABG pO2 ABG pO2 ABG HCO3 ABG Base Excess ABG Hemoglobin Oxyhemoglobin Sodium Potassium Chloride Carbon Dioxide BUN Creatinine Glucose POC Glucose 199 H 186 H Lactic Acid Calcium Ionized Calcium Phosphorus Magnesium Direct Bilirubin AST ALT Alkaline Phosphatase Lactate Dehydrogenase Troponin T C-Reactive Protein Total Protein Albumin Prealbumin Triglycerides Cholesterol LDL Cholesterol Direct HDL Cholesterol 25-OH Vitamin D Total PTH Intact Urine pH Urine WBC (Auto) Urine Creatinine Urine Total Protein Fluid Total Protein Vancomycin Trough Rheumatoid Factor Complement C4 Miscellaneous Test Crossmatch See Detail 09/11/16 09/11/16 09/11/16 05:10 05:10 05:17 WBC 28.4 H RBC Hgb 9.2 L Hct 29.3 L D MCV 73 L MCH 23 L MCHC RDW 18.9 H Plt Count 452 H Lymph % (Auto) [place] % (Auto) Lymph # [place] # Baso # Seg Neutrophils % Seg Neuts % (Manual) 89.5 H Lymphocytes % (Manual) 2.0 L Monocytes % (Manual) Eosinophils % (Manual) Basophils % (Manual) Nucleated RBC % Seg Neutrophils # Seg Neutrophils # Man 25.4 H Lymphocytes # (Manual) 0.6 L Monocytes # (Manual) 1.3 H Eosinophils # (Manual) Basophils # (Manual) PT INR Fibrinogen dRVVT Confirm Interp Factor V Activity POC ABG pH POC ABG pCO2 POC ABG pO2 ABG pO2 ABG HCO3 ABG Base Excess ABG Hemoglobin Oxyhemoglobin Sodium 136 L Potassium Chloride Carbon Dioxide 18 L BUN 107 H Creatinine 2.6 H Glucose 187 H POC Glucose 230 H Lactic Acid Calcium 8.3 L Ionized Calcium Phosphorus Magnesium Direct Bilirubin AST ALT Alkaline Phosphatase Lactate Dehydrogenase Troponin T C-Reactive Protein Total Protein Albumin Prealbumin Triglycerides Cholesterol LDL Cholesterol Direct HDL Cholesterol 25-OH Vitamin D Total PTH Intact Urine pH Urine WBC (Auto) Urine Creatinine Urine Total Protein Fluid Total Protein Vancomycin Trough Rheumatoid Factor Complement C4 Miscellaneous Test Crossmatch 09/11/16 09/11/16 09/11/16 05:55 12:02 17:32 WBC RBC Hgb Hct MCV MCH MCHC RDW Plt Count Lymph % (Auto) [place] % (Auto) Lymph # [place] # Baso # Seg Neutrophils % Seg Neuts % (Manual) Lymphocytes % (Manual) Monocytes % (Manual) Eosinophils % (Manual) Basophils % (Manual) Nucleated RBC % Seg Neutrophils # Seg Neutrophils # Man Lymphocytes # (Manual) Monocytes # (Manual) Eosinophils # (Manual) Basophils # (Manual) PT INR Fibrinogen dRVVT Confirm Interp Factor V Activity POC ABG pH POC ABG pCO2 33.8 L POC ABG pO2 ABG pO2 ABG HCO3 ABG Base Excess ABG Hemoglobin Oxyhemoglobin Sodium Potassium Chloride Carbon Dioxide BUN Creatinine Glucose POC Glucose 191 H 239 H Lactic Acid Calcium Ionized Calcium Phosphorus Magnesium Direct Bilirubin AST ALT Alkaline Phosphatase Lactate Dehydrogenase Troponin T C-Reactive Protein Total Protein Albumin Prealbumin Triglycerides Cholesterol LDL Cholesterol Direct HDL Cholesterol 25-OH Vitamin D Total PTH Intact Urine pH Urine WBC (Auto) Urine Creatinine Urine Total Protein Fluid Total Protein Vancomycin Trough Rheumatoid Factor Complement C4 Miscellaneous Test Crossmatch 09/11/16 09/12/16 09/12/16 23:52 05:09 05:32 WBC RBC Hgb Hct MCV MCH MCHC RDW Plt Count Lymph % (Auto) [place] % (Auto) Lymph # [place] # Baso # Seg Neutrophils % Seg Neuts % (Manual) Lymphocytes % (Manual) Monocytes % (Manual) Eosinophils % (Manual) Basophils % (Manual) Nucleated RBC % Seg Neutrophils # Seg Neutrophils # Man Lymphocytes # (Manual) Monocytes # (Manual) Eosinophils # (Manual) Basophils # (Manual) PT INR Fibrinogen dRVVT Confirm Interp Factor V Activity POC ABG pH POC ABG pCO2 34.6 L POC ABG pO2 ABG pO2 ABG HCO3 ABG Base Excess ABG Hemoglobin Oxyhemoglobin Sodium Potassium Chloride Carbon Dioxide BUN Creatinine Glucose POC Glucose 265 H 184 H Lactic Acid Calcium Ionized Calcium Phosphorus Magnesium Direct Bilirubin AST ALT Alkaline Phosphatase Lactate Dehydrogenase Troponin T C-Reactive Protein Total Protein Albumin Prealbumin Triglycerides Cholesterol LDL Cholesterol Direct HDL Cholesterol 25-OH Vitamin D Total PTH Intact Urine pH Urine WBC (Auto) Urine Creatinine Urine Total Protein Fluid Total Protein Vancomycin Trough Rheumatoid Factor Complement C4 Miscellaneous Test Crossmatch 09/12/16 09/12/16 09/12/16 06:45 06:45 07:22 WBC 31.7 H RBC 3.54 L Hgb 8.3 L Hct 25.9 L MCV 73 L MCH 23 L MCHC RDW 18.9 H Plt Count Lymph % (Auto) [place] % (Auto) Lymph # [place] # Baso # Seg Neutrophils % Seg Neuts % (Manual) 88.5 H Lymphocytes % (Manual) 4.5 L Monocytes % (Manual) Eosinophils % (Manual) Basophils % (Manual) Nucleated RBC % Seg Neutrophils # Seg Neutrophils # Man 28.1 H Lymphocytes # (Manual) Monocytes # (Manual) 1.0 H Eosinophils # (Manual) Basophils # (Manual) PT INR Fibrinogen dRVVT Confirm Interp Factor V Activity POC ABG pH POC ABG pCO2 POC ABG pO2 ABG pO2 ABG HCO3 ABG Base Excess ABG Hemoglobin Oxyhemoglobin Sodium Potassium Chloride Carbon Dioxide 20 L BUN 115 H Creatinine 2.7 H Glucose 165 H POC Glucose Lactic Acid Calcium 8.0 L Ionized Calcium Phosphorus Magnesium Direct Bilirubin AST ALT Alkaline Phosphatase Lactate Dehydrogenase Troponin T C-Reactive Protein Total Protein Albumin Prealbumin Triglycerides 217 H Cholesterol LDL Cholesterol Direct HDL Cholesterol 25-OH Vitamin D Total PTH Intact Urine pH Urine WBC (Auto) Urine Creatinine Urine Total Protein Fluid Total Protein Vancomycin Trough Rheumatoid Factor Complement C4 Miscellaneous Test Crossmatch 09/12/16 09/12/16 09/12/16 07:22 09:59 12:21 WBC RBC Hgb Hct MCV MCH MCHC RDW Plt Count Lymph % (Auto) [place] % (Auto) Lymph # [place] # Baso # Seg Neutrophils % Seg Neuts % (Manual) Lymphocytes % (Manual) Monocytes % (Manual) Eosinophils % (Manual) Basophils % (Manual) Nucleated RBC % Seg Neutrophils # Seg Neutrophils # Man Lymphocytes # (Manual) Monocytes # (Manual) Eosinophils # (Manual) Basophils # (Manual) PT INR Fibrinogen dRVVT Confirm Interp Positive H Factor V Activity POC ABG pH POC ABG pCO2 POC ABG pO2 ABG pO2 ABG HCO3 ABG Base Excess ABG Hemoglobin Oxyhemoglobin Sodium Potassium Chloride Carbon Dioxide BUN Creatinine Glucose POC Glucose 224 H Lactic Acid Calcium Ionized Calcium Phosphorus Magnesium Direct Bilirubin AST ALT Alkaline Phosphatase Lactate Dehydrogenase Troponin T C-Reactive Protein 1.70 H Total Protein Albumin Prealbumin Triglycerides Cholesterol LDL Cholesterol Direct HDL Cholesterol 25-OH Vitamin D Total PTH Intact Urine pH Urine WBC (Auto) Urine Creatinine Urine Total Protein Fluid Total Protein Vancomycin Trough Rheumatoid Factor Complement C4 Miscellaneous Test Crossmatch 09/12/16 09/12/16 09/13/16 16:51 23:28 04:00 WBC 45.0 H* RBC Hgb 9.4 L Hct MCV 75 L MCH 23 L MCHC RDW 19.0 H Plt Count 470 H Lymph % (Auto) [place] % (Auto) Lymph # [place] # Baso # Seg Neutrophils % Seg Neuts % (Manual) 89.0 H Lymphocytes % (Manual) 5.0 L Monocytes % (Manual) Eosinophils % (Manual) Basophils % (Manual) Nucleated RBC % Seg Neutrophils # Seg Neutrophils # Man 40.1 H Lymphocytes # (Manual) Monocytes # (Manual) Eosinophils # (Manual) Basophils # (Manual) PT INR Fibrinogen dRVVT Confirm Interp Factor V Activity POC ABG pH POC ABG pCO2 POC ABG pO2 ABG pO2 ABG HCO3 ABG Base Excess ABG Hemoglobin Oxyhemoglobin Sodium Potassium Chloride Carbon Dioxide BUN Creatinine Glucose POC Glucose 169 H 150 H Lactic Acid Calcium Ionized Calcium Phosphorus Magnesium Direct Bilirubin AST ALT Alkaline Phosphatase Lactate Dehydrogenase Troponin T C-Reactive Protein Total Protein Albumin Prealbumin Triglycerides Cholesterol LDL Cholesterol Direct HDL Cholesterol 25-OH Vitamin D Total PTH Intact Urine pH Urine WBC (Auto) Urine Creatinine Urine Total Protein Fluid Total Protein Vancomycin Trough Rheumatoid Factor Complement C4 Miscellaneous Test Crossmatch 09/13/16 09/13/16 09/13/16 04:00 11:26 17:31 WBC RBC Hgb Hct MCV MCH MCHC RDW Plt Count Lymph % (Auto) [place] % (Auto) Lymph # [place] # Baso # Seg Neutrophils % Seg Neuts % (Manual) Lymphocytes % (Manual) Monocytes % (Manual) Eosinophils % (Manual) Basophils % (Manual) Nucleated RBC % Seg Neutrophils # Seg Neutrophils # Man Lymphocytes # (Manual) Monocytes # (Manual) Eosinophils # (Manual) Basophils # (Manual) PT INR Fibrinogen dRVVT Confirm Interp Factor V Activity POC ABG pH POC ABG pCO2 POC ABG pO2 ABG pO2 ABG HCO3 ABG Base Excess ABG Hemoglobin Oxyhemoglobin Sodium Potassium Chloride Carbon Dioxide 20 L BUN 116 H Creatinine 3.0 H Glucose 172 H POC Glucose 140 H 183 H Lactic Acid Calcium Ionized Calcium Phosphorus Magnesium Direct Bilirubin AST ALT Alkaline Phosphatase Lactate Dehydrogenase Troponin T C-Reactive Protein Total Protein 6.2 L Albumin 2.9 L Prealbumin Triglycerides Cholesterol LDL Cholesterol Direct HDL Cholesterol 25-OH Vitamin D Total PTH Intact Urine pH Urine WBC (Auto) Urine Creatinine Urine Total Protein Fluid Total Protein Vancomycin Trough Rheumatoid Factor Complement C4 Miscellaneous Test Crossmatch 09/13/16 09/14/16 09/14/16 23:23 04:06 04:07 WBC 29.4 H RBC Hgb 8.9 L Hct 27.3 L MCV 75 L MCH 24 L MCHC RDW 19.1 H Plt Count Lymph % (Auto) [place] % (Auto) Lymph # [place] # Baso # Seg Neutrophils % Seg Neuts % (Manual) 84.0 H Lymphocytes % (Manual) 6.0 L Monocytes % (Manual) 9.0 H Eosinophils % (Manual) Basophils % (Manual) Nucleated RBC % Seg Neutrophils # Seg Neutrophils # Man 24.7 H Lymphocytes # (Manual) Monocytes # (Manual) 2.6 H Eosinophils # (Manual) Basophils # (Manual) PT INR Fibrinogen dRVVT Confirm Interp Factor V Activity POC ABG pH 7.342 L POC ABG pCO2 POC ABG pO2 116 H ABG pO2 ABG HCO3 ABG Base Excess ABG Hemoglobin Oxyhemoglobin Sodium Potassium Chloride Carbon Dioxide BUN Creatinine Glucose POC Glucose 154 H Lactic Acid Calcium Ionized Calcium Phosphorus Magnesium Direct Bilirubin AST ALT Alkaline Phosphatase Lactate Dehydrogenase Troponin T C-Reactive Protein Total Protein Albumin Prealbumin Triglycerides Cholesterol LDL Cholesterol Direct HDL Cholesterol 25-OH Vitamin D Total PTH Intact Urine pH Urine WBC (Auto) Urine Creatinine Urine Total Protein Fluid Total Protein Vancomycin Trough Rheumatoid Factor Complement C4 Miscellaneous Test Crossmatch 09/14/16 09/14/16 09/14/16 04:07 05:29 12:19 WBC RBC Hgb Hct MCV MCH MCHC RDW Plt Count Lymph % (Auto) [place] % (Auto) Lymph # [place] # Baso # Seg Neutrophils % Seg Neuts % (Manual) Lymphocytes % (Manual) Monocytes % (Manual) Eosinophils % (Manual) Basophils % (Manual) Nucleated RBC % Seg Neutrophils # Seg Neutrophils # Man Lymphocytes # (Manual) Monocytes # (Manual) Eosinophils # (Manual) Basophils # (Manual) PT INR Fibrinogen dRVVT Confirm Interp Factor V Activity POC ABG pH POC ABG pCO2 POC ABG pO2 ABG pO2 ABG HCO3 ABG Base Excess ABG Hemoglobin Oxyhemoglobin Sodium 136 L Potassium Chloride Carbon Dioxide 18 L BUN 121 H Creatinine 2.8 H Glucose 214 H POC Glucose 239 H 181 H Lactic Acid Calcium Ionized Calcium Phosphorus Magnesium Direct Bilirubin AST ALT Alkaline Phosphatase Lactate Dehydrogenase Troponin T C-Reactive Protein Total Protein Albumin Prealbumin Triglycerides Cholesterol LDL Cholesterol Direct HDL Cholesterol 25-OH Vitamin D Total PTH Intact Urine pH Urine WBC (Auto) Urine Creatinine Urine Total Protein Fluid Total Protein Vancomycin Trough Rheumatoid Factor Complement C4 Miscellaneous Test Crossmatch 09/14/16 09/14/16 09/15/16 18:12 23:37 05:00 WBC 26.1 H RBC 3.05 L Hgb 7.2 L Hct 22.9 L MCV 75 L MCH 24 L MCHC RDW 19.0 H Plt Count Lymph % (Auto) [place] % (Auto) Lymph # [place] # Baso # Seg Neutrophils % Seg Neuts % (Manual) Lymphocytes % (Manual) Monocytes % (Manual) Eosinophils % (Manual) Basophils % (Manual) Nucleated RBC % Seg Neutrophils # Seg Neutrophils # Man Lymphocytes # (Manual) Monocytes # (Manual) Eosinophils # (Manual) Basophils # (Manual) PT INR Fibrinogen dRVVT Confirm Interp Factor V Activity POC ABG pH POC ABG pCO2 POC ABG pO2 ABG pO2 ABG HCO3 ABG Base Excess ABG Hemoglobin Oxyhemoglobin Sodium Potassium Chloride Carbon Dioxide BUN Creatinine Glucose POC Glucose 266 H 154 H Lactic Acid Calcium Ionized Calcium Phosphorus Magnesium Direct Bilirubin AST ALT Alkaline Phosphatase Lactate Dehydrogenase Troponin T C-Reactive Protein Total Protein Albumin Prealbumin Triglycerides Cholesterol LDL Cholesterol Direct HDL Cholesterol 25-OH Vitamin D Total PTH Intact Urine pH Urine WBC (Auto) Urine Creatinine Urine Total Protein Fluid Total Protein Vancomycin Trough Rheumatoid Factor Complement C4 Miscellaneous Test Crossmatch 09/15/16 09/15/16 09/15/16 05:00 05:17 12:45 WBC RBC Hgb Hct MCV MCH MCHC RDW Plt Count Lymph % (Auto) [place] % (Auto) Lymph # [place] # Baso # Seg Neutrophils % Seg Neuts % (Manual) Lymphocytes % (Manual) Monocytes % (Manual) Eosinophils % (Manual) Basophils % (Manual) Nucleated RBC % Seg Neutrophils # Seg Neutrophils # Man Lymphocytes # (Manual) Monocytes # (Manual) Eosinophils # (Manual) Basophils # (Manual) PT INR Fibrinogen dRVVT Confirm Interp Factor V Activity POC ABG pH POC ABG pCO2 POC ABG pO2 ABG pO2 ABG HCO3 ABG Base Excess ABG Hemoglobin Oxyhemoglobin Sodium Potassium 5.2 H Chloride Carbon Dioxide 18 L BUN 139 H Creatinine 3.7 H Glucose 227 H POC Glucose 226 H 244 H Lactic Acid Calcium 8.3 L Ionized Calcium Phosphorus Magnesium Direct Bilirubin AST ALT Alkaline Phosphatase Lactate Dehydrogenase Troponin T C-Reactive Protein Total Protein Albumin Prealbumin Triglycerides Cholesterol LDL Cholesterol Direct HDL Cholesterol 25-OH Vitamin D Total PTH Intact Urine pH Urine WBC (Auto) Urine Creatinine Urine Total Protein Fluid Total Protein Vancomycin Trough Rheumatoid Factor Complement C4 Miscellaneous Test Crossmatch 09/15/16 09/15/16 09/15/16 14:32 17:33 23:35 WBC RBC Hgb Hct MCV MCH MCHC RDW Plt Count Lymph % (Auto) [place] % (Auto) Lymph # [place] # Baso # Seg Neutrophils % Seg Neuts % (Manual) Lymphocytes % (Manual) Monocytes % (Manual) Eosinophils % (Manual) Basophils % (Manual) Nucleated RBC % Seg Neutrophils # Seg Neutrophils # Man Lymphocytes # (Manual) Monocytes # (Manual) Eosinophils # (Manual) Basophils # (Manual) PT INR Fibrinogen dRVVT Confirm Interp Factor V Activity POC ABG pH POC ABG pCO2 27.7 L POC ABG pO2 120 H ABG pO2 ABG HCO3 ABG Base Excess ABG Hemoglobin Oxyhemoglobin Sodium Potassium Chloride Carbon Dioxide BUN Creatinine Glucose POC Glucose 232 H 167 H Lactic Acid Calcium Ionized Calcium Phosphorus Magnesium Direct Bilirubin AST ALT Alkaline Phosphatase Lactate Dehydrogenase Troponin T C-Reactive Protein Total Protein Albumin Prealbumin Triglycerides Cholesterol LDL Cholesterol Direct HDL Cholesterol 25-OH Vitamin D Total PTH Intact Urine pH Urine WBC (Auto) Urine Creatinine Urine Total Protein Fluid Total Protein Vancomycin Trough Rheumatoid Factor Complement C4 Miscellaneous Test Crossmatch 09/16/16 09/16/16 09/16/16 03:58 10:27 10:27 WBC 19.0 H RBC 2.77 L Hgb 6.5 L Hct 20.9 L MCV 76 L MCH 23 L MCHC RDW 19.3 H Plt Count Lymph % (Auto) 11.[address] [place] % (Auto) Lymph # [place] # 1.1 H Baso # Seg Neutrophils % 82.5 H Seg Neuts % (Manual) Lymphocytes % (Manual) Monocytes % (Manual) Eosinophils % (Manual) Basophils % (Manual) Nucleated RBC % Seg Neutrophils # 15.7 H Seg Neutrophils # Man Lymphocytes # (Manual) Monocytes # (Manual) Eosinophils # (Manual) Basophils # (Manual) PT INR Fibrinogen dRVVT Confirm Interp Factor V Activity POC ABG pH POC ABG pCO2 POC ABG pO2 ABG pO2 ABG HCO3 ABG Base Excess ABG Hemoglobin Oxyhemoglobin Sodium Potassium Chloride 109.3 H Carbon Dioxide 18 L BUN 139 H Creatinine 4.1 H Glucose 144 H POC Glucose 146 H Lactic Acid Calcium 8.1 L Ionized Calcium Phosphorus Magnesium Direct Bilirubin AST ALT Alkaline Phosphatase Lactate Dehydrogenase Troponin T C-Reactive Protein Total Protein Albumin Prealbumin Triglycerides Cholesterol LDL Cholesterol Direct HDL Cholesterol 25-OH Vitamin D Total PTH Intact Urine pH Urine WBC (Auto) Urine Creatinine Urine Total Protein Fluid Total Protein Vancomycin Trough Rheumatoid Factor Complement C4 Miscellaneous Test Crossmatch 09/16/16 09/16/16 09/16/16 12:04 12:10 13:55 WBC RBC Hgb Hct MCV MCH MCHC RDW Plt Count Lymph % (Auto) [place] % (Auto) Lymph # [place] # Baso # Seg Neutrophils % Seg Neuts % (Manual) Lymphocytes % (Manual) Monocytes % (Manual) Eosinophils % (Manual) Basophils % (Manual) Nucleated RBC % Seg Neutrophils # Seg Neutrophils # Man Lymphocytes # (Manual) Monocytes # (Manual) Eosinophils # (Manual) Basophils # (Manual) PT INR Fibrinogen dRVVT Confirm Interp Factor V Activity POC ABG pH POC ABG pCO2 32.9 L POC ABG pO2 ABG pO2 ABG HCO3 ABG Base Excess ABG Hemoglobin Oxyhemoglobin Sodium Potassium Chloride Carbon Dioxide BUN Creatinine Glucose POC Glucose 185 H Lactic Acid Calcium Ionized Calcium Phosphorus Magnesium Direct Bilirubin AST ALT Alkaline Phosphatase Lactate Dehydrogenase Troponin T C-Reactive Protein Total Protein Albumin Prealbumin Triglycerides Cholesterol LDL Cholesterol Direct HDL Cholesterol 25-OH Vitamin D Total PTH Intact Urine pH Urine WBC (Auto) Urine Creatinine Urine Total Protein Fluid Total Protein Vancomycin Trough Rheumatoid Factor Complement C4 Miscellaneous Test Crossmatch See Detail 09/16/16 09/16/16 09/16/16 17:55 19:19 23:48 WBC RBC Hgb Hct MCV MCH MCHC RDW Plt Count Lymph % (Auto) [place] % (Auto) Lymph # [place] # Baso # Seg Neutrophils % Seg Neuts % (Manual) Lymphocytes % (Manual) Monocytes % (Manual) Eosinophils % (Manual) Basophils % (Manual) Nucleated RBC % Seg Neutrophils # Seg Neutrophils # Man Lymphocytes # (Manual) Monocytes # (Manual) Eosinophils # (Manual) Basophils # (Manual) PT INR Fibrinogen dRVVT Confirm Interp Factor V Activity POC ABG pH POC ABG pCO2 POC ABG pO2 ABG pO2 ABG HCO3 ABG Base Excess ABG Hemoglobin Oxyhemoglobin Sodium Potassium Chloride Carbon Dioxide BUN Creatinine Glucose POC Glucose 222 H 107 H Lactic Acid Calcium Ionized Calcium Phosphorus Magnesium Direct Bilirubin AST ALT Alkaline Phosphatase Lactate Dehydrogenase Troponin T C-Reactive Protein Total Protein Albumin Prealbumin Triglycerides Cholesterol LDL Cholesterol Direct HDL Cholesterol 25-OH Vitamin D Total PTH Intact Urine pH Urine WBC (Auto) Urine Creatinine 47.4 H Urine Total Protein 16 H Fluid Total Protein Vancomycin Trough Rheumatoid Factor Complement C4 Miscellaneous Test Crossmatch 09/17/16 09/17/16 09/17/16 03:45 03:45 04:55 WBC 19.6 H RBC 3.41 L Hgb 8.5 L Hct 26.7 L MCV 78 L MCH 25 L MCHC RDW 19.9 H Plt Count Lymph % (Auto) 9.[address] [place] % (Auto) Lymph # [place] # 1.2 H Baso # Seg Neutrophils % 83.9 H Seg Neuts % (Manual) Lymphocytes % (Manual) Monocytes % (Manual) Eosinophils % (Manual) Basophils % (Manual) Nucleated RBC % Seg Neutrophils # 16.4 H Seg Neutrophils # Man Lymphocytes # (Manual) Monocytes # (Manual) Eosinophils # (Manual) Basophils # (Manual) PT INR Fibrinogen dRVVT Confirm Interp Factor V Activity POC ABG pH POC ABG pCO2 POC ABG pO2 ABG pO2 ABG HCO3 ABG Base Excess ABG Hemoglobin Oxyhemoglobin Sodium 146 H Potassium 5.1 H Chloride 110.9 H Carbon Dioxide 16 L BUN 146 H Creatinine 4.0 H Glucose 108 H POC Glucose 133 H Lactic Acid Calcium Ionized Calcium Phosphorus Magnesium 3.00 H Direct Bilirubin AST ALT Alkaline Phosphatase Lactate Dehydrogenase Troponin T C-Reactive Protein Total Protein Albumin Prealbumin Triglycerides Cholesterol LDL Cholesterol Direct HDL Cholesterol 25-OH Vitamin D Total PTH Intact Urine pH Urine WBC (Auto) Urine Creatinine Urine Total Protein Fluid Total Protein Vancomycin Trough Rheumatoid Factor Complement C4 Miscellaneous Test Crossmatch 09/17/16 09/17/16 09/17/16 11:15 17:33 23:47 WBC RBC Hgb Hct MCV MCH MCHC RDW Plt Count Lymph % (Auto) [place] % (Auto) Lymph # [place] # Baso # Seg Neutrophils % Seg Neuts % (Manual) Lymphocytes % (Manual) Monocytes % (Manual) Eosinophils % (Manual) Basophils % (Manual) Nucleated RBC % Seg Neutrophils # Seg Neutrophils # Man Lymphocytes # (Manual) Monocytes # (Manual) Eosinophils # (Manual) Basophils # (Manual) PT INR Fibrinogen dRVVT Confirm Interp Factor V Activity POC ABG pH POC ABG pCO2 POC ABG pO2 ABG pO2 ABG HCO3 ABG Base Excess ABG Hemoglobin Oxyhemoglobin Sodium Potassium Chloride Carbon Dioxide BUN Creatinine Glucose POC Glucose 176 H 246 H 148 H Lactic Acid Calcium Ionized Calcium Phosphorus Magnesium Direct Bilirubin AST ALT Alkaline Phosphatase Lactate Dehydrogenase Troponin T C-Reactive Protein Total Protein Albumin Prealbumin Triglycerides Cholesterol LDL Cholesterol Direct HDL Cholesterol 25-OH Vitamin D Total PTH Intact Urine pH Urine WBC (Auto) Urine Creatinine Urine Total Protein Fluid Total Protein Vancomycin Trough Rheumatoid Factor Complement C4 Miscellaneous Test Crossmatch 09/18/16 09/18/16 09/18/16 05:33 08:31 08:31 WBC 18.0 H RBC 3.17 L Hgb 9.0 L Hct 25.7 L MCV MCH MCHC 35 H RDW 20.4 H Plt Count Lymph % (Auto) [place] % (Auto) Lymph # [place] # Baso # Seg Neutrophils % Seg Neuts % (Manual) Lymphocytes % (Manual) Monocytes % (Manual) Eosinophils % (Manual) Basophils % (Manual) Nucleated RBC % Seg Neutrophils # Seg Neutrophils # Man Lymphocytes # (Manual) Monocytes # (Manual) Eosinophils # (Manual) Basophils # (Manual) PT INR Fibrinogen dRVVT Confirm Interp Factor V Activity POC ABG pH POC ABG pCO2 POC ABG pO2 ABG pO2 ABG HCO3 ABG Base Excess ABG Hemoglobin Oxyhemoglobin Sodium Potassium Chloride Carbon Dioxide 15 L BUN 124 H Creatinine 3.8 H Glucose POC Glucose 120 H Lactic Acid Calcium 8.1 L Ionized Calcium Phosphorus Magnesium Direct Bilirubin AST ALT Alkaline Phosphatase Lactate Dehydrogenase Troponin T C-Reactive Protein Total Protein Albumin Prealbumin Triglycerides Cholesterol LDL Cholesterol Direct HDL Cholesterol 25-OH Vitamin D Total PTH Intact Urine pH Urine WBC (Auto) Urine Creatinine Urine Total Protein Fluid Total Protein Vancomycin Trough Rheumatoid Factor Complement C4 Miscellaneous Test Crossmatch 09/18/16 09/18/16 09/18/16 12:03 15:34 17:50 WBC RBC Hgb Hct MCV MCH MCHC RDW Plt Count Lymph % (Auto) [place] % (Auto) Lymph # [place] # Baso # Seg Neutrophils % Seg Neuts % (Manual) Lymphocytes % (Manual) Monocytes % (Manual) Eosinophils % (Manual) Basophils % (Manual) Nucleated RBC % Seg Neutrophils # Seg Neutrophils # Man Lymphocytes # (Manual) Monocytes # (Manual) Eosinophils # (Manual) Basophils # (Manual) PT INR Fibrinogen dRVVT Confirm Interp Factor V Activity POC ABG pH POC ABG pCO2 25.7 L POC ABG pO2 66 L ABG pO2 ABG HCO3 ABG Base Excess ABG Hemoglobin Oxyhemoglobin Sodium Potassium Chloride Carbon Dioxide BUN Creatinine Glucose POC Glucose 156 H 220 H Lactic Acid Calcium Ionized Calcium Phosphorus Magnesium Direct Bilirubin AST ALT Alkaline Phosphatase Lactate Dehydrogenase Troponin T C-Reactive Protein Total Protein Albumin Prealbumin Triglycerides Cholesterol LDL Cholesterol Direct HDL Cholesterol 25-OH Vitamin D Total PTH Intact Urine pH Urine WBC (Auto) Urine Creatinine Urine Total Protein Fluid Total Protein Vancomycin Trough Rheumatoid Factor Complement C4 Miscellaneous Test Crossmatch 09/19/16 09/19/16 09/19/16 06:21 09:50 09:50 WBC 17.1 H RBC 3.49 L Hgb 9.0 L Hct 28.1 L MCV MCH 26 L MCHC RDW 20.8 H Plt Count Lymph % (Auto) 11.[address] [place] % (Auto) 7.5 H Lymph # [place] # 1.3 H Baso # Seg Neutrophils % 79.8 H Seg Neuts % (Manual) Lymphocytes % (Manual) Monocytes % (Manual) Eosinophils % (Manual) Basophils % (Manual) Nucleated RBC % Seg Neutrophils # 13.7 H Seg Neutrophils # Man Lymphocytes # (Manual) Monocytes # (Manual) Eosinophils # (Manual) Basophils # (Manual) PT INR Fibrinogen dRVVT Confirm Interp Factor V Activity POC ABG pH POC ABG pCO2 POC ABG pO2 ABG pO2 ABG HCO3 ABG Base Excess ABG Hemoglobin Oxyhemoglobin Sodium Potassium Chloride 108.6 H Carbon Dioxide 15 L BUN 125 H Creatinine 4.1 H Glucose 124 H POC Glucose 119 H Lactic Acid Calcium Ionized Calcium Phosphorus Magnesium Direct Bilirubin AST ALT Alkaline Phosphatase Lactate Dehydrogenase Troponin T C-Reactive Protein Total Protein Albumin Prealbumin Triglycerides Cholesterol LDL Cholesterol Direct HDL Cholesterol 25-OH Vitamin D Total PTH Intact Urine pH Urine WBC (Auto) Urine Creatinine Urine Total Protein Fluid Total Protein Vancomycin Trough Rheumatoid Factor Complement C4 Miscellaneous Test Crossmatch 09/19/16 09/19/16 09/19/16 11:25 17:53 23:36 WBC RBC Hgb Hct MCV MCH MCHC RDW Plt Count Lymph % (Auto) [place] % (Auto) Lymph # [place] # Baso # Seg Neutrophils % Seg Neuts % (Manual) Lymphocytes % (Manual) Monocytes % (Manual) Eosinophils % (Manual) Basophils % (Manual) Nucleated RBC % Seg Neutrophils # Seg Neutrophils # Man Lymphocytes # (Manual) Monocytes # (Manual) Eosinophils # (Manual) Basophils # (Manual) PT INR Fibrinogen dRVVT Confirm Interp Factor V Activity POC ABG pH POC ABG pCO2 POC ABG pO2 ABG pO2 ABG HCO3 ABG Base Excess ABG Hemoglobin Oxyhemoglobin Sodium Potassium Chloride Carbon Dioxide BUN Creatinine Glucose POC Glucose 160 H 245 H 121 H Lactic Acid Calcium Ionized Calcium Phosphorus Magnesium Direct Bilirubin AST ALT Alkaline Phosphatase Lactate Dehydrogenase Troponin T C-Reactive Protein Total Protein Albumin Prealbumin Triglycerides Cholesterol LDL Cholesterol Direct HDL Cholesterol 25-OH Vitamin D Total PTH Intact Urine pH Urine WBC (Auto) Urine Creatinine Urine Total Protein Fluid Total Protein Vancomycin Trough Rheumatoid Factor Complement C4 Miscellaneous Test Crossmatch 09/20/16 09/20/16 09/20/16 04:10 04:10 04:10 WBC 17.0 H RBC 3.21 L Hgb 8.2 L Hct 25.5 L MCV MCH 26 L MCHC RDW 20.9 H Plt Count Lymph % (Auto) [place] % (Auto) Lymph # [place] # Baso # Seg Neutrophils % Seg Neuts % (Manual) Lymphocytes % (Manual) Monocytes % (Manual) Eosinophils % (Manual) Basophils % (Manual) Nucleated RBC % Seg Neutrophils # Seg Neutrophils # Man Lymphocytes # (Manual) Monocytes # (Manual) Eosinophils # (Manual) Basophils # (Manual) PT INR Fibrinogen dRVVT Confirm Interp Factor V Activity POC ABG pH POC ABG pCO2 POC ABG pO2 ABG pO2 ABG HCO3 ABG Base Excess ABG Hemoglobin Oxyhemoglobin Sodium Potassium Chloride 111.0 H Carbon Dioxide 16 L BUN 129 H Creatinine 3.7 H Glucose 115 H POC Glucose Lactic Acid Calcium 8.2 L Ionized Calcium Phosphorus Magnesium Direct Bilirubin AST ALT Alkaline Phosphatase Lactate Dehydrogenase Troponin T C-Reactive Protein Total Protein Albumin Prealbumin Triglycerides 243 H Cholesterol LDL Cholesterol Direct HDL Cholesterol 25-OH Vitamin D Total PTH Intact Urine pH Urine WBC (Auto) Urine Creatinine Urine Total Protein Fluid Total Protein Vancomycin Trough Rheumatoid Factor Complement C4 Miscellaneous Test Crossmatch 09/20/16 09/20/16 09/20/16 05:40 11:52 16:50 WBC RBC Hgb Hct MCV MCH MCHC RDW Plt Count Lymph % (Auto) [place] % (Auto) Lymph # [place] # Baso # Seg Neutrophils % Seg Neuts % (Manual) Lymphocytes % (Manual) Monocytes % (Manual) Eosinophils % (Manual) Basophils % (Manual) Nucleated RBC % Seg Neutrophils # Seg Neutrophils # Man Lymphocytes # (Manual) Monocytes # (Manual) Eosinophils # (Manual) Basophils # (Manual) PT INR Fibrinogen dRVVT Confirm Interp Factor V Activity POC ABG pH POC ABG pCO2 POC ABG pO2 ABG pO2 ABG HCO3 ABG Base Excess ABG Hemoglobin Oxyhemoglobin Sodium Potassium Chloride Carbon Dioxide BUN Creatinine Glucose POC Glucose 131 H 183 H 236 H Lactic Acid Calcium Ionized Calcium Phosphorus Magnesium Direct Bilirubin AST ALT Alkaline Phosphatase Lactate Dehydrogenase Troponin T C-Reactive Protein Total Protein Albumin Prealbumin Triglycerides Cholesterol LDL Cholesterol Direct HDL Cholesterol 25-OH Vitamin D Total PTH Intact Urine pH Urine WBC (Auto) Urine Creatinine Urine Total Protein Fluid Total Protein Vancomycin Trough Rheumatoid Factor Complement C4 Miscellaneous Test Crossmatch 09/20/16 09/21/16 09/21/16 23:51 03:30 04:44 WBC RBC Hgb Hct MCV MCH MCHC RDW Plt Count Lymph % (Auto) [place] % (Auto) Lymph # [place] # Baso # Seg Neutrophils % Seg Neuts % (Manual) Lymphocytes % (Manual) Monocytes % (Manual) Eosinophils % (Manual) Basophils % (Manual) Nucleated RBC % Seg Neutrophils # Seg Neutrophils # Man Lymphocytes # (Manual) Monocytes # (Manual) Eosinophils # (Manual) Basophils # (Manual) PT INR Fibrinogen dRVVT Confirm Interp Factor V Activity POC ABG pH POC ABG pCO2 POC ABG pO2 ABG pO2 ABG HCO3 ABG Base Excess ABG Hemoglobin Oxyhemoglobin Sodium Potassium Chloride Carbon Dioxide BUN Creatinine Glucose POC Glucose 114 H 141 H Lactic Acid Calcium Ionized Calcium Phosphorus Magnesium 2.70 H Direct Bilirubin AST ALT Alkaline Phosphatase Lactate Dehydrogenase Troponin T C-Reactive Protein Total Protein Albumin Prealbumin Triglycerides Cholesterol LDL Cholesterol Direct HDL Cholesterol 25-OH Vitamin D Total PTH Intact Urine pH Urine WBC (Auto) Urine Creatinine Urine Total Protein Fluid Total Protein Vancomycin Trough Rheumatoid Factor Complement C4 Miscellaneous Test Crossmatch 09/21/16 09/21/16 09/21/16 07:45 07:45 10:01 WBC 13.8 H RBC 2.94 L Hgb 7.5 L Hct 23.5 L MCV MCH 26 L MCHC RDW 21.2 H Plt Count Lymph % (Auto) 6.[address] [place] % (Auto) 9.4 H Lymph # 0.[address] [place] # 1.3 H Baso # Seg Neutrophils % 83.2 H Seg Neuts % (Manual) Lymphocytes % (Manual) Monocytes % (Manual) Eosinophils % (Manual) Basophils % (Manual) Nucleated RBC % Seg Neutrophils # 11.5 H Seg Neutrophils # Man Lymphocytes # (Manual) Monocytes # (Manual) Eosinophils # (Manual) Basophils # (Manual) PT INR Fibrinogen dRVVT Confirm Interp Factor V Activity POC ABG pH 7.308 L POC ABG pCO2 31.9 L POC ABG pO2 148 H ABG pO2 ABG HCO3 ABG Base Excess ABG Hemoglobin Oxyhemoglobin Sodium 147 H Potassium Chloride 114.2 H Carbon Dioxide 15 L BUN 120 H Creatinine 3.9 H Glucose 156 H POC Glucose Lactic Acid Calcium 8.2 L Ionized Calcium Phosphorus Magnesium Direct Bilirubin AST ALT Alkaline Phosphatase Lactate Dehydrogenase Troponin T C-Reactive Protein Total Protein Albumin Prealbumin Triglycerides Cholesterol LDL Cholesterol Direct HDL Cholesterol 25-OH Vitamin D Total PTH Intact Urine pH Urine WBC (Auto) Urine Creatinine Urine Total Protein Fluid Total Protein Vancomycin Trough Rheumatoid Factor Complement C4 Miscellaneous Test Crossmatch 09/21/16 09/21/16 09/21/16 12:00 12:03 13:00 WBC RBC Hgb Hct MCV MCH MCHC RDW Plt Count Lymph % (Auto) [place] % (Auto) Lymph # [place] # Baso # Seg Neutrophils % Seg Neuts % (Manual) Lymphocytes % (Manual) Monocytes % (Manual) Eosinophils % (Manual) Basophils % (Manual) Nucleated RBC % Seg Neutrophils # Seg Neutrophils # Man Lymphocytes # (Manual) Monocytes # (Manual) Eosinophils # (Manual) Basophils # (Manual) PT INR Fibrinogen dRVVT Confirm Interp Factor V Activity POC ABG pH POC ABG pCO2 POC ABG pO2 ABG pO2 ABG HCO3 ABG Base Excess ABG Hemoglobin Oxyhemoglobin Sodium Potassium Chloride Carbon Dioxide BUN Creatinine Glucose POC Glucose 163 H Lactic Acid Calcium Ionized Calcium Phosphorus Magnesium Direct Bilirubin AST ALT Alkaline Phosphatase Lactate Dehydrogenase Troponin T C-Reactive Protein Total Protein Albumin Prealbumin Triglycerides Cholesterol LDL Cholesterol Direct HDL Cholesterol 25-OH Vitamin D Total PTH Intact Urine pH Urine WBC (Auto) Urine Creatinine 54.8 H Urine Total Protein Fluid Total Protein Vancomycin Trough 2.3 L Rheumatoid Factor Complement C4 Miscellaneous Test Crossmatch 09/21/16 09/21/16 09/22/16 16:51 23:17 06:27 WBC RBC Hgb Hct MCV MCH MCHC RDW Plt Count Lymph % (Auto) [place] % (Auto) Lymph # [place] # Baso # Seg Neutrophils % Seg Neuts % (Manual) Lymphocytes % (Manual) Monocytes % (Manual) Eosinophils % (Manual) Basophils % (Manual) Nucleated RBC % Seg Neutrophils # Seg Neutrophils # Man Lymphocytes # (Manual) Monocytes # (Manual) Eosinophils # (Manual) Basophils # (Manual) PT INR Fibrinogen dRVVT Confirm Interp Factor V Activity POC ABG pH POC ABG pCO2 POC ABG pO2 ABG pO2 ABG HCO3 ABG Base Excess ABG Hemoglobin Oxyhemoglobin Sodium Potassium Chloride Carbon Dioxide BUN Creatinine Glucose POC Glucose 206 H 114 H 115 H Lactic Acid Calcium Ionized Calcium Phosphorus Magnesium Direct Bilirubin AST ALT Alkaline Phosphatase Lactate Dehydrogenase Troponin T C-Reactive Protein Total Protein Albumin Prealbumin Triglycerides Cholesterol LDL Cholesterol Direct HDL Cholesterol 25-OH Vitamin D Total PTH Intact Urine pH Urine WBC (Auto) Urine Creatinine Urine Total Protein Fluid Total Protein Vancomycin Trough Rheumatoid Factor Complement C4 Miscellaneous Test Crossmatch 09/22/16 09/22/16 09/22/16 07:50 07:50 12:00 WBC 17.8 H RBC 3.04 L Hgb 8.0 L Hct 24.7 L MCV MCH 26 L MCHC RDW 21.6 H Plt Count Lymph % (Auto) [place] % (Auto) Lymph # [place] # Baso # Seg Neutrophils % Seg Neuts % (Manual) Lymphocytes % (Manual) Monocytes % (Manual) Eosinophils % (Manual) Basophils % (Manual) Nucleated RBC % Seg Neutrophils # Seg Neutrophils # Man Lymphocytes # (Manual) Monocytes # (Manual) Eosinophils # (Manual) Basophils # (Manual) PT INR Fibrinogen dRVVT Confirm Interp Factor V Activity POC ABG pH POC ABG pCO2 POC ABG pO2 ABG pO2 ABG HCO3 ABG Base Excess ABG Hemoglobin Oxyhemoglobin Sodium 150 H Potassium Chloride 118.2 H Carbon Dioxide 14 L BUN 111 H Creatinine 3.7 H Glucose 157 H POC Glucose 183 H Lactic Acid Calcium Ionized Calcium Phosphorus Magnesium Direct Bilirubin AST ALT Alkaline Phosphatase Lactate Dehydrogenase Troponin T C-Reactive Protein Total Protein Albumin Prealbumin Triglycerides Cholesterol LDL Cholesterol Direct HDL Cholesterol 25-OH Vitamin D Total PTH Intact Urine pH Urine WBC (Auto) Urine Creatinine Urine Total Protein Fluid Total Protein Vancomycin Trough Rheumatoid Factor Complement C4 Miscellaneous Test Crossmatch 09/22/16 09/22/16 09/23/16 17:29 23:10 05:00 WBC 19.2 H RBC 3.13 L Hgb 8.0 L Hct 25.2 L MCV MCH 26 L MCHC RDW 22.1 H Plt Count Lymph % (Auto) [place] % (Auto) Lymph # [place] # Baso # Seg Neutrophils % Seg Neuts % (Manual) 92.0 H Lymphocytes % (Manual) 3.0 L Monocytes % (Manual) Eosinophils % (Manual) Basophils % (Manual) Nucleated RBC % Seg Neutrophils # Seg Neutrophils # Man 17.7 H Lymphocytes # (Manual) 0.6 L Monocytes # (Manual) Eosinophils # (Manual) Basophils # (Manual) PT INR Fibrinogen dRVVT Confirm Interp Factor V Activity POC ABG pH POC ABG pCO2 POC ABG pO2 ABG pO2 ABG HCO3 ABG Base Excess ABG Hemoglobin Oxyhemoglobin Sodium Potassium Chloride Carbon Dioxide BUN Creatinine Glucose POC Glucose 197 H 169 H Lactic Acid Calcium Ionized Calcium Phosphorus Magnesium Direct Bilirubin AST ALT Alkaline Phosphatase Lactate Dehydrogenase Troponin T C-Reactive Protein Total Protein Albumin Prealbumin Triglycerides Cholesterol LDL Cholesterol Direct HDL Cholesterol 25-OH Vitamin D Total PTH Intact Urine pH Urine WBC (Auto) Urine Creatinine Urine Total Protein Fluid Total Protein Vancomycin Trough Rheumatoid Factor Complement C4 Miscellaneous Test Crossmatch 09/23/16 09/23/16 09/23/16 05:00 05:00 05:10 WBC RBC Hgb Hct MCV MCH MCHC RDW Plt Count Lymph % (Auto) [place] % (Auto) Lymph # [place] # Baso # Seg Neutrophils % Seg Neuts % (Manual) Lymphocytes % (Manual) Monocytes % (Manual) Eosinophils % (Manual) Basophils % (Manual) Nucleated RBC % Seg Neutrophils # Seg Neutrophils # Man Lymphocytes # (Manual) Monocytes # (Manual) Eosinophils # (Manual) Basophils # (Manual) PT INR Fibrinogen dRVVT Confirm Interp Factor V Activity POC ABG pH POC ABG pCO2 POC ABG pO2 ABG pO2 ABG HCO3 ABG Base Excess ABG Hemoglobin Oxyhemoglobin Sodium 147 H Potassium 3.2 L Chloride 115.7 H Carbon Dioxide 13 L BUN 111 H Creatinine 3.8 H Glucose 194 H POC Glucose 188 H Lactic Acid Calcium 7.3 L D Ionized Calcium Phosphorus Magnesium Direct Bilirubin AST ALT Alkaline Phosphatase Lactate Dehydrogenase Troponin T C-Reactive Protein 3.20 H Total Protein Albumin Prealbumin Triglycerides Cholesterol LDL Cholesterol Direct HDL Cholesterol 25-OH Vitamin D Total PTH Intact Urine pH Urine WBC (Auto) Urine Creatinine Urine Total Protein Fluid Total Protein Vancomycin Trough Rheumatoid Factor Complement C4 Miscellaneous Test Crossmatch 09/23/16 09/23/16 09/23/16 11:37 12:29 18:01 WBC RBC Hgb Hct MCV MCH MCHC RDW Plt Count Lymph % (Auto) [place] % (Auto) Lymph # [place] # Baso # Seg Neutrophils % Seg Neuts % (Manual) Lymphocytes % (Manual) Monocytes % (Manual) Eosinophils % (Manual) Basophils % (Manual) Nucleated RBC % Seg Neutrophils # Seg Neutrophils # Man Lymphocytes # (Manual) Monocytes # (Manual) Eosinophils # (Manual) Basophils # (Manual) PT INR Fibrinogen dRVVT Confirm Interp Factor V Activity POC ABG pH POC ABG pCO2 18.9 L POC ABG pO2 143 H ABG pO2 ABG HCO3 ABG Base Excess ABG Hemoglobin Oxyhemoglobin Sodium Potassium Chloride Carbon Dioxide BUN Creatinine Glucose POC Glucose 153 H 108 H Lactic Acid Calcium Ionized Calcium Phosphorus Magnesium Direct Bilirubin AST ALT Alkaline Phosphatase Lactate Dehydrogenase Troponin T C-Reactive Protein Total Protein Albumin Prealbumin Triglycerides Cholesterol LDL Cholesterol Direct HDL Cholesterol 25-OH Vitamin D Total PTH Intact Urine pH Urine WBC (Auto) Urine Creatinine Urine Total Protein Fluid Total Protein Vancomycin Trough Rheumatoid Factor Complement C4 Miscellaneous Test Crossmatch 09/23/16 09/23/16 09/24/16 21:19 23:43 05:16 WBC RBC Hgb Hct MCV MCH MCHC RDW Plt Count Lymph % (Auto) [place] % (Auto) Lymph # [place] # Baso # Seg Neutrophils % Seg Neuts % (Manual) Lymphocytes % (Manual) Monocytes % (Manual) Eosinophils % (Manual) Basophils % (Manual) Nucleated RBC % Seg Neutrophils # Seg Neutrophils # Man Lymphocytes # (Manual) Monocytes # (Manual) Eosinophils # (Manual) Basophils # (Manual) PT INR Fibrinogen dRVVT Confirm Interp Factor V Activity POC ABG pH POC ABG pCO2 17.3 L POC ABG pO2 112 H ABG pO2 ABG HCO3 ABG Base Excess ABG Hemoglobin Oxyhemoglobin Sodium Potassium Chloride Carbon Dioxide BUN Creatinine Glucose POC Glucose 143 H 164 H Lactic Acid Calcium Ionized Calcium Phosphorus Magnesium Direct Bilirubin AST ALT Alkaline Phosphatase Lactate Dehydrogenase Troponin T C-Reactive Protein Total Protein Albumin Prealbumin Triglycerides Cholesterol LDL Cholesterol Direct HDL Cholesterol 25-OH Vitamin D Total PTH Intact Urine pH Urine WBC (Auto) Urine Creatinine Urine Total Protein Fluid Total Protein Vancomycin Trough Rheumatoid Factor Complement C4 Miscellaneous Test Crossmatch 09/24/16 09/24/16 09/24/16 05:21 11:58 17:06 WBC RBC Hgb Hct MCV MCH MCHC RDW Plt Count Lymph % (Auto) [place] % (Auto) Lymph # [place] # Baso # Seg Neutrophils % Seg Neuts % (Manual) Lymphocytes % (Manual) Monocytes % (Manual) Eosinophils % (Manual) Basophils % (Manual) Nucleated RBC % Seg Neutrophils # Seg Neutrophils # Man Lymphocytes # (Manual) Monocytes # (Manual) Eosinophils # (Manual) Basophils # (Manual) PT INR Fibrinogen dRVVT Confirm Interp Factor V Activity POC ABG pH POC ABG pCO2 POC ABG pO2 ABG pO2 ABG HCO3 ABG Base Excess ABG Hemoglobin Oxyhemoglobin Sodium Potassium Chloride Carbon Dioxide 10 L BUN 103 H Creatinine 4.3 H Glucose 163 H POC Glucose 173 H 167 H Lactic Acid Calcium 6.5 L Ionized Calcium Phosphorus Magnesium Direct Bilirubin AST ALT Alkaline Phosphatase Lactate Dehydrogenase Troponin T C-Reactive Protein Total Protein Albumin Prealbumin Triglycerides Cholesterol LDL Cholesterol Direct HDL Cholesterol 25-OH Vitamin D Total PTH Intact Urine pH Urine WBC (Auto) Urine Creatinine Urine Total Protein Fluid Total Protein Vancomycin Trough Rheumatoid Factor Complement C4 Miscellaneous Test Crossmatch 09/24/16 09/24/16 09/24/16 20:15 21:02 23:48 WBC RBC Hgb Hct MCV MCH MCHC RDW Plt Count Lymph % (Auto) [place] % (Auto) Lymph # [place] # Baso # Seg Neutrophils % Seg Neuts % (Manual) Lymphocytes % (Manual) Monocytes % (Manual) Eosinophils % (Manual) Basophils % (Manual) Nucleated RBC % Seg Neutrophils # Seg Neutrophils # Man Lymphocytes # (Manual) Monocytes # (Manual) Eosinophils # (Manual) Basophils # (Manual) PT INR Fibrinogen dRVVT Confirm Interp Factor V Activity POC ABG pH 7.288 L POC ABG pCO2 30.2 L 21.5 L POC ABG pO2 32 L 39 L ABG pO2 ABG HCO3 ABG Base Excess ABG Hemoglobin Oxyhemoglobin Sodium Potassium Chloride Carbon Dioxide BUN Creatinine Glucose POC Glucose 109 H Lactic Acid Calcium Ionized Calcium Phosphorus Magnesium Direct Bilirubin AST ALT Alkaline Phosphatase Lactate Dehydrogenase Troponin T C-Reactive Protein Total Protein Albumin Prealbumin Triglycerides Cholesterol LDL Cholesterol Direct HDL Cholesterol 25-OH Vitamin D Total PTH Intact Urine pH Urine WBC (Auto) Urine Creatinine Urine Total Protein Fluid Total Protein Vancomycin Trough Rheumatoid Factor Complement C4 Miscellaneous Test Crossmatch 09/25/16 09/25/16 09/25/16 04:20 04:20 04:20 WBC RBC 2.58 L Hgb 7.0 L Hct 21.0 L MCV MCH 27 L MCHC RDW 23.8 H Plt Count Lymph % (Auto) [place] % (Auto) Lymph # [place] # Baso # Seg Neutrophils % Seg Neuts % (Manual) Lymphocytes % (Manual) 12.0 L Monocytes % (Manual) Eosinophils % (Manual) 7.0 H Basophils % (Manual) 2.0 H Nucleated RBC % Seg Neutrophils # Seg Neutrophils # Man Lymphocytes # (Manual) 0.9 L Monocytes # (Manual) Eosinophils # (Manual) 0.5 H Basophils # (Manual) PT INR Fibrinogen dRVVT Confirm Interp Factor V Activity POC ABG pH POC ABG pCO2 POC ABG pO2 ABG pO2 ABG HCO3 ABG Base Excess ABG Hemoglobin Oxyhemoglobin Sodium Potassium Chloride Carbon Dioxide 15 L BUN 72 H Creatinine 3.8 H Glucose POC Glucose Lactic Acid Calcium 6.0 L Ionized Calcium Phosphorus 4.60 H Magnesium 1.60 L Direct Bilirubin AST ALT Alkaline Phosphatase Lactate Dehydrogenase Troponin T C-Reactive Protein Total Protein Albumin Prealbumin Triglycerides Cholesterol LDL Cholesterol Direct HDL Cholesterol 25-OH Vitamin D Total PTH Intact Urine pH Urine WBC (Auto) Urine Creatinine Urine Total Protein Fluid Total Protein Vancomycin Trough Rheumatoid Factor Complement C4 Miscellaneous Test Crossmatch 09/25/16 09/25/16 09/25/16 04:57 08:02 10:30 WBC RBC Hgb Hct MCV MCH MCHC RDW Plt Count Lymph % (Auto) [place] % (Auto) Lymph # [place] # Baso # Seg Neutrophils % Seg Neuts % (Manual) Lymphocytes % (Manual) Monocytes % (Manual) Eosinophils % (Manual) Basophils % (Manual) Nucleated RBC % Seg Neutrophils # Seg Neutrophils # Man Lymphocytes # (Manual) Monocytes # (Manual) Eosinophils # (Manual) Basophils # (Manual) PT INR Fibrinogen dRVVT Confirm Interp Factor V Activity POC ABG pH POC ABG pCO2 24.7 L POC ABG pO2 152 H ABG pO2 ABG HCO3 ABG Base Excess ABG Hemoglobin Oxyhemoglobin Sodium Potassium Chloride Carbon Dioxide BUN Creatinine Glucose POC Glucose 113 H Lactic Acid Calcium Ionized Calcium Phosphorus Magnesium Direct Bilirubin AST ALT Alkaline Phosphatase Lactate Dehydrogenase Troponin T C-Reactive Protein Total Protein Albumin Prealbumin Triglycerides Cholesterol LDL Cholesterol Direct HDL Cholesterol 25-OH Vitamin D Total PTH Intact Urine pH Urine WBC (Auto) Urine Creatinine Urine Total Protein Fluid Total Protein Vancomycin Trough Rheumatoid Factor Complement C4 Miscellaneous Test Crossmatch See Detail 09/25/16 09/25/16 09/25/16 12:05 17:44 23:47 WBC RBC Hgb Hct MCV MCH MCHC RDW Plt Count Lymph % (Auto) [place] % (Auto) Lymph # [place] # Baso # Seg Neutrophils % Seg Neuts % (Manual) Lymphocytes % (Manual) Monocytes % (Manual) Eosinophils % (Manual) Basophils % (Manual) Nucleated RBC % Seg Neutrophils # Seg Neutrophils # Man Lymphocytes # (Manual) Monocytes # (Manual) Eosinophils # (Manual) Basophils # (Manual) PT INR Fibrinogen dRVVT Confirm Interp Factor V Activity POC ABG pH POC ABG pCO2 POC ABG pO2 ABG pO2 ABG HCO3 ABG Base Excess ABG Hemoglobin Oxyhemoglobin Sodium Potassium Chloride Carbon Dioxide BUN Creatinine Glucose POC Glucose 117 H 119 H 150 H Lactic Acid Calcium Ionized Calcium Phosphorus Magnesium Direct Bilirubin AST ALT Alkaline Phosphatase Lactate Dehydrogenase Troponin T C-Reactive Protein Total Protein Albumin Prealbumin Triglycerides Cholesterol LDL Cholesterol Direct HDL Cholesterol 25-OH Vitamin D Total PTH Intact Urine pH Urine WBC (Auto) Urine Creatinine Urine Total Protein Fluid Total Protein Vancomycin Trough Rheumatoid Factor Complement C4 Miscellaneous Test Crossmatch 09/26/16 09/26/16 09/26/16 04:25 04:25 04:25 WBC RBC 2.65 L Hgb 7.4 L Hct 21.6 L MCV MCH MCHC RDW 22.5 H Plt Count Lymph % (Auto) [place] % (Auto) Lymph # [place] # Baso # Seg Neutrophils % Seg Neuts % (Manual) Lymphocytes % (Manual) 6.0 L Monocytes % (Manual) Eosinophils % (Manual) 11.0 H Basophils % (Manual) Nucleated RBC % Seg Neutrophils # Seg Neutrophils # Man Lymphocytes # (Manual) 0.4 L Monocytes # (Manual) Eosinophils # (Manual) 0.6 H Basophils # (Manual) PT INR Fibrinogen dRVVT Confirm Interp Factor V Activity POC ABG pH POC ABG pCO2 POC ABG pO2 ABG pO2 ABG HCO3 ABG Base Excess ABG Hemoglobin Oxyhemoglobin Sodium Potassium Chloride 97.0 L Carbon Dioxide 19 L BUN 43 H Creatinine 2.6 H Glucose 130 H POC Glucose Lactic Acid 4.40 H* Calcium 6.7 L Ionized Calcium Phosphorus Magnesium Direct Bilirubin AST ALT Alkaline Phosphatase Lactate Dehydrogenase Troponin T C-Reactive Protein Total Protein Albumin Prealbumin Triglycerides Cholesterol LDL Cholesterol Direct HDL Cholesterol 25-OH Vitamin D Total PTH Intact Urine pH Urine WBC (Auto) Urine Creatinine Urine Total Protein Fluid Total Protein Vancomycin Trough Rheumatoid Factor Complement C4 Miscellaneous Test Crossmatch 09/26/16 09/26/16 09/26/16 05:20 11:44 12:12 WBC RBC Hgb Hct MCV MCH MCHC RDW Plt Count Lymph % (Auto) [place] % (Auto) Lymph # [place] # Baso # Seg Neutrophils % Seg Neuts % (Manual) Lymphocytes % (Manual) Monocytes % (Manual) Eosinophils % (Manual) Basophils % (Manual) Nucleated RBC % Seg Neutrophils # Seg Neutrophils # Man Lymphocytes # (Manual) Monocytes # (Manual) Eosinophils # (Manual) Basophils # (Manual) PT INR Fibrinogen dRVVT Confirm Interp Factor V Activity POC ABG pH POC ABG pCO2 27.0 L POC ABG pO2 69 L ABG pO2 ABG HCO3 ABG Base Excess ABG Hemoglobin Oxyhemoglobin Sodium Potassium Chloride Carbon Dioxide BUN Creatinine Glucose POC Glucose 121 H 128 H Lactic Acid Calcium Ionized Calcium Phosphorus Magnesium Direct Bilirubin AST ALT Alkaline Phosphatase Lactate Dehydrogenase Troponin T C-Reactive Protein Total Protein Albumin Prealbumin Triglycerides Cholesterol LDL Cholesterol Direct HDL Cholesterol 25-OH Vitamin D Total PTH Intact Urine pH Urine WBC (Auto) Urine Creatinine Urine Total Protein Fluid Total Protein Vancomycin Trough Rheumatoid Factor Complement C4 Miscellaneous Test Crossmatch 09/26/16 09/26/16 09/27/16 18:31 23:40 08:20 WBC RBC Hgb Hct MCV MCH MCHC RDW Plt Count Lymph % (Auto) [place] % (Auto) Lymph # [place] # Baso # Seg Neutrophils % Seg Neuts % (Manual) Lymphocytes % (Manual) Monocytes % (Manual) Eosinophils % (Manual) Basophils % (Manual) Nucleated RBC % Seg Neutrophils # Seg Neutrophils # Man Lymphocytes # (Manual) Monocytes # (Manual) Eosinophils # (Manual) Basophils # (Manual) PT INR Fibrinogen dRVVT Confirm Interp Factor V Activity POC ABG pH POC ABG pCO2 POC ABG pO2 ABG pO2 ABG HCO3 ABG Base Excess ABG Hemoglobin Oxyhemoglobin Sodium Potassium Chloride Carbon Dioxide BUN Creatinine Glucose POC Glucose 120 H 133 H Lactic Acid 4.10 H* Calcium Ionized Calcium Phosphorus Magnesium Direct Bilirubin AST ALT Alkaline Phosphatase Lactate Dehydrogenase Troponin T C-Reactive Protein Total Protein Albumin Prealbumin Triglycerides Cholesterol LDL Cholesterol Direct HDL Cholesterol 25-OH Vitamin D Total PTH Intact Urine pH Urine WBC (Auto) Urine Creatinine Urine Total Protein Fluid Total Protein Vancomycin Trough Rheumatoid Factor Complement C4 Miscellaneous Test Crossmatch 09/27/16 09/27/16 09/27/16 11:23 15:00 18:15 WBC RBC Hgb Hct MCV MCH MCHC RDW Plt Count Lymph % (Auto) [place] % (Auto) Lymph # [place] # Baso # Seg Neutrophils % Seg Neuts % (Manual) Lymphocytes % (Manual) Monocytes % (Manual) Eosinophils % (Manual) Basophils % (Manual) Nucleated RBC % Seg Neutrophils # Seg Neutrophils # Man Lymphocytes # (Manual) Monocytes # (Manual) Eosinophils # (Manual) Basophils # (Manual) PT INR Fibrinogen dRVVT Confirm Interp Factor V Activity POC ABG pH 7.459 H POC ABG pCO2 27.1 L POC ABG pO2 140 H ABG pO2 ABG HCO3 ABG Base Excess ABG Hemoglobin Oxyhemoglobin Sodium Potassium Chloride Carbon Dioxide BUN Creatinine Glucose POC Glucose 114 H 127 H Lactic Acid Calcium Ionized Calcium Phosphorus Magnesium Direct Bilirubin AST ALT Alkaline Phosphatase Lactate Dehydrogenase Troponin T C-Reactive Protein Total Protein Albumin Prealbumin Triglycerides Cholesterol LDL Cholesterol Direct HDL Cholesterol 25-OH Vitamin D Total PTH Intact Urine pH Urine WBC (Auto) Urine Creatinine Urine Total Protein Fluid Total Protein Vancomycin Trough Rheumatoid Factor Complement C4 Miscellaneous Test Crossmatch 09/27/16 09/27/16 09/28/16 Unknown Unknown 03:45 WBC RBC 2.49 L Hgb 6.8 L Hct 20.7 L MCV MCH 27 L MCHC RDW 22.1 H Plt Count Lymph % (Auto) [place] % (Auto) Lymph # [place] # Baso # Seg Neutrophils % Seg Neuts % (Manual) 32.0 L Lymphocytes % (Manual) 12.0 L Monocytes % (Manual) 11.0 H Eosinophils % (Manual) 10.0 H Basophils % (Manual) Nucleated RBC % Seg Neutrophils # Seg Neutrophils # Man Lymphocytes # (Manual) 1.0 L Monocytes # (Manual) 0.9 H Eosinophils # (Manual) 0.8 H Basophils # (Manual) PT INR Fibrinogen dRVVT Confirm Interp Factor V Activity POC ABG pH POC ABG pCO2 POC ABG pO2 ABG pO2 ABG HCO3 ABG Base Excess ABG Hemoglobin Oxyhemoglobin Sodium 135 L 135 L Potassium 3.5 L Chloride 93.6 L 94.4 L Carbon Dioxide 17 L 21 L BUN 45 H 28 H Creatinine 3.3 H 2.5 H Glucose 106 H POC Glucose Lactic Acid Calcium 7.3 L 7.1 L Ionized Calcium Phosphorus Magnesium Direct Bilirubin AST ALT Alkaline Phosphatase Lactate Dehydrogenase Troponin T C-Reactive Protein Total Protein Albumin Prealbumin Triglycerides Cholesterol LDL Cholesterol Direct HDL Cholesterol 25-OH Vitamin D Total PTH Intact Urine pH Urine WBC (Auto) Urine Creatinine Urine Total Protein Fluid Total Protein Vancomycin Trough Rheumatoid Factor Complement C4 Miscellaneous Test Crossmatch 09/28/16 09/28/16 09/28/16 03:45 07:25 11:58 WBC 13.3 H RBC 3.01 L Hgb 8.4 L Hct 25.0 L MCV MCH MCHC RDW 20.5 H Plt Count 128 L Lymph % (Auto) [place] % (Auto) Lymph # [place] # Baso # Seg Neutrophils % Seg Neuts % (Manual) Lymphocytes % (Manual) 7.0 L Monocytes % (Manual) Eosinophils % (Manual) 6.0 H Basophils % (Manual) Nucleated RBC % Seg Neutrophils # Seg Neutrophils # Man Lymphocytes # (Manual) 0.9 L Monocytes # (Manual) Eosinophils # (Manual) 0.8 H Basophils # (Manual) PT INR Fibrinogen dRVVT Confirm Interp Factor V Activity POC ABG pH POC ABG pCO2 POC ABG pO2 ABG pO2 ABG HCO3 ABG Base Excess ABG Hemoglobin Oxyhemoglobin Sodium Potassium Chloride Carbon Dioxide BUN Creatinine Glucose POC Glucose 121 H Lactic Acid 4.50 H* Calcium Ionized Calcium Phosphorus Magnesium Direct Bilirubin AST ALT Alkaline Phosphatase Lactate Dehydrogenase Troponin T C-Reactive Protein Total Protein Albumin Prealbumin Triglycerides Cholesterol LDL Cholesterol Direct HDL Cholesterol 25-OH Vitamin D Total PTH Intact Urine pH Urine WBC (Auto) Urine Creatinine Urine Total Protein Fluid Total Protein Vancomycin Trough Rheumatoid Factor Complement C4 Miscellaneous Test Crossmatch 09/29/16 09/29/16 09/29/16 06:45 06:45 06:45 WBC 14.9 H RBC 2.74 L Hgb 7.6 L Hct 23.2 L MCV MCH MCHC RDW 20.5 H Plt Count 81 L Lymph % (Auto) [place] % (Auto) Lymph # [place] # Baso # Seg Neutrophils % Seg Neuts % (Manual) 81.0 H Lymphocytes % (Manual) 4.0 L Monocytes % (Manual) Eosinophils % (Manual) Basophils % (Manual) Nucleated RBC % Seg Neutrophils # Seg Neutrophils # Man 12.1 H Lymphocytes # (Manual) 0.6 L Monocytes # (Manual) Eosinophils # (Manual) Basophils # (Manual) PT INR Fibrinogen dRVVT Confirm Interp Factor V Activity POC ABG pH POC ABG pCO2 POC ABG pO2 ABG pO2 ABG HCO3 ABG Base Excess ABG Hemoglobin Oxyhemoglobin Sodium 133 L Potassium 3.4 L Chloride 92.5 L Carbon Dioxide 21 L BUN 33 H Creatinine 3.0 H Glucose POC Glucose Lactic Acid Calcium 6.6 L Ionized Calcium Phosphorus Magnesium 1.40 L Direct Bilirubin 0.9 H AST ALT Alkaline Phosphatase Lactate Dehydrogenase Troponin T C-Reactive Protein Total Protein 4.3 L Albumin 1.3 L Prealbumin Triglycerides Cholesterol LDL Cholesterol Direct HDL Cholesterol 25-OH Vitamin D Total PTH Intact Urine pH Urine WBC (Auto) Urine Creatinine Urine Total Protein Fluid Total Protein Vancomycin Trough Rheumatoid Factor Complement C4 Miscellaneous Test Crossmatch 09/29/16 09/29/16 09/30/16 17:52 20:12 00:07 WBC RBC Hgb Hct MCV MCH MCHC RDW Plt Count Lymph % (Auto) [place] % (Auto) Lymph # [place] # Baso # Seg Neutrophils % Seg Neuts % (Manual) Lymphocytes % (Manual) Monocytes % (Manual) Eosinophils % (Manual) Basophils % (Manual) Nucleated RBC % Seg Neutrophils # Seg Neutrophils # Man Lymphocytes # (Manual) Monocytes # (Manual) Eosinophils # (Manual) Basophils # (Manual) PT INR Fibrinogen dRVVT Confirm Interp Factor V Activity POC ABG pH POC ABG pCO2 POC ABG pO2 ABG pO2 ABG HCO3 ABG Base Excess ABG Hemoglobin Oxyhemoglobin Sodium Potassium Chloride Carbon Dioxide BUN Creatinine Glucose POC Glucose 50 L 51 L Lactic Acid Calcium Ionized Calcium Phosphorus Magnesium Direct Bilirubin AST ALT Alkaline Phosphatase Lactate Dehydrogenase Troponin T 0.204 H* C-Reactive Protein Total Protein Albumin Prealbumin Triglycerides Cholesterol 31 L LDL Cholesterol Direct 4 L HDL Cholesterol 3 L 25-OH Vitamin D Total PTH Intact Urine pH Urine WBC (Auto) Urine Creatinine Urine Total Protein Fluid Total Protein Vancomycin Trough Rheumatoid Factor Complement C4 Miscellaneous Test Crossmatch 09/30/16 09/30/16 09/30/16 01:30 05:15 06:10 WBC RBC Hgb Hct MCV MCH MCHC RDW Plt Count Lymph % (Auto) [place] % (Auto) Lymph # [place] # Baso # Seg Neutrophils % Seg Neuts % (Manual) Lymphocytes % (Manual) Monocytes % (Manual) Eosinophils % (Manual) Basophils % (Manual) Nucleated RBC % Seg Neutrophils # Seg Neutrophils # Man Lymphocytes # (Manual) Monocytes # (Manual) Eosinophils # (Manual) Basophils # (Manual) PT INR Fibrinogen dRVVT Confirm Interp Factor V Activity POC ABG pH POC ABG pCO2 POC ABG pO2 ABG pO2 ABG HCO3 ABG Base Excess ABG Hemoglobin Oxyhemoglobin Sodium 133 L Potassium 3.2 L Chloride 93.2 L Carbon Dioxide 19 L BUN 36 H Creatinine 3.2 H Glucose 104 H POC Glucose 167 H 146 H Lactic Acid Calcium 6.4 L Ionized Calcium Phosphorus Magnesium 1.60 L Direct Bilirubin AST ALT Alkaline Phosphatase Lactate Dehydrogenase Troponin T C-Reactive Protein Total Protein Albumin Prealbumin Triglycerides Cholesterol LDL Cholesterol Direct HDL Cholesterol 25-OH Vitamin D Total PTH Intact Urine pH Urine WBC (Auto) Urine Creatinine Urine Total Protein Fluid Total Protein Vancomycin Trough Rheumatoid Factor Complement C4 Miscellaneous Test Crossmatch 09/30/16 09/30/16 09/30/16 11:26 13:39 18:38 WBC RBC Hgb Hct MCV MCH MCHC RDW Plt Count Lymph % (Auto) [place] % (Auto) Lymph # [place] # Baso # Seg Neutrophils % Seg Neuts % (Manual) Lymphocytes % (Manual) Monocytes % (Manual) Eosinophils % (Manual) Basophils % (Manual) Nucleated RBC % Seg Neutrophils # Seg Neutrophils # Man Lymphocytes # (Manual) Monocytes # (Manual) Eosinophils # (Manual) Basophils # (Manual) PT INR Fibrinogen dRVVT Confirm Interp Factor V Activity POC ABG pH 7.479 H POC ABG pCO2 29.8 L POC ABG pO2 117 H ABG pO2 ABG HCO3 ABG Base Excess ABG Hemoglobin Oxyhemoglobin Sodium Potassium Chloride Carbon Dioxide BUN Creatinine Glucose POC Glucose 140 H 122 H Lactic Acid Calcium Ionized Calcium Phosphorus Magnesium Direct Bilirubin AST ALT Alkaline Phosphatase Lactate Dehydrogenase Troponin T C-Reactive Protein Total Protein Albumin Prealbumin Triglycerides Cholesterol LDL Cholesterol Direct HDL Cholesterol 25-OH Vitamin D Total PTH Intact Urine pH Urine WBC (Auto) Urine Creatinine Urine Total Protein Fluid Total Protein Vancomycin Trough Rheumatoid Factor Complement C4 Miscellaneous Test Crossmatch 10/01/16 10/01/16 10/01/16 06:00 06:00 12:37 WBC 12.6 H RBC 2.75 L Hgb 7.3 L Hct 23.3 L MCV MCH 27 L MCHC RDW 20.6 H Plt Count 72 L Lymph % (Auto) [place] % (Auto) Lymph # [place] # Baso # Seg Neutrophils % Seg Neuts % (Manual) 31.0 L Lymphocytes % (Manual) 8.0 L Monocytes % (Manual) Eosinophils % (Manual) Basophils % (Manual) Nucleated RBC % 3.0 H Seg Neutrophils # Seg Neutrophils # Man Lymphocytes # (Manual) 1.0 L Monocytes # (Manual) Eosinophils # (Manual) Basophils # (Manual) PT INR Fibrinogen dRVVT Confirm Interp Factor V Activity POC ABG pH POC ABG pCO2 POC ABG pO2 ABG pO2 ABG HCO3 ABG Base Excess ABG Hemoglobin Oxyhemoglobin Sodium 127 L Potassium Chloride 86.8 L Carbon Dioxide 20 L BUN 42 H Creatinine 3.5 H Glucose POC Glucose 65 L Lactic Acid Calcium 7.0 L Ionized Calcium Phosphorus Magnesium Direct Bilirubin AST ALT Alkaline Phosphatase Lactate Dehydrogenase Troponin T C-Reactive Protein Total Protein Albumin Prealbumin Triglycerides Cholesterol LDL Cholesterol Direct HDL Cholesterol 25-OH Vitamin D Total PTH Intact Urine pH Urine WBC (Auto) Urine Creatinine Urine Total Protein Fluid Total Protein Vancomycin Trough Rheumatoid Factor Complement C4 Miscellaneous Test Crossmatch 10/01/16 10/01/16 10/02/16 17:39 23:32 00:59 WBC RBC Hgb Hct MCV MCH MCHC RDW Plt Count Lymph % (Auto) [place] % (Auto) Lymph # [place] # Baso # Seg Neutrophils % Seg Neuts % (Manual) Lymphocytes % (Manual) Monocytes % (Manual) Eosinophils % (Manual) Basophils % (Manual) Nucleated RBC % Seg Neutrophils # Seg Neutrophils # Man Lymphocytes # (Manual) Monocytes # (Manual) Eosinophils # (Manual) Basophils # (Manual) PT INR Fibrinogen dRVVT Confirm Interp Factor V Activity POC ABG pH POC ABG pCO2 POC ABG pO2 ABG pO2 ABG HCO3 ABG Base Excess ABG Hemoglobin Oxyhemoglobin Sodium Potassium Chloride Carbon Dioxide BUN Creatinine Glucose POC Glucose 107 H 52 L 145 H Lactic Acid Calcium Ionized Calcium Phosphorus Magnesium Direct Bilirubin AST ALT Alkaline Phosphatase Lactate Dehydrogenase Troponin T C-Reactive Protein Total Protein Albumin Prealbumin Triglycerides Cholesterol LDL Cholesterol Direct HDL Cholesterol 25-OH Vitamin D Total PTH Intact Urine pH Urine WBC (Auto) Urine Creatinine Urine Total Protein Fluid Total Protein Vancomycin Trough Rheumatoid Factor Complement C4 Miscellaneous Test Crossmatch 10/02/16 10/02/16 10/02/16 10:30 10:50 10:50 WBC 14.7 H RBC 2.76 L Hgb 7.4 L Hct 23.6 L MCV MCH 27 L MCHC RDW 20.2 H Plt Count 79 L Lymph % (Auto) [place] % (Auto) Lymph # [place] # Baso # Seg Neutrophils % Seg Neuts % (Manual) 86.0 H Lymphocytes % (Manual) 6.0 L Monocytes % (Manual) Eosinophils % (Manual) Basophils % (Manual) Nucleated RBC % Seg Neutrophils # Seg Neutrophils # Man 12.6 H Lymphocytes # (Manual) 0.9 L Monocytes # (Manual) Eosinophils # (Manual) Basophils # (Manual) PT INR Fibrinogen dRVVT Confirm Interp Factor V Activity POC ABG pH 7.486 H POC ABG pCO2 30.1 L POC ABG pO2 108 H ABG pO2 ABG HCO3 ABG Base Excess ABG Hemoglobin Oxyhemoglobin Sodium 131 L Potassium 3.4 L Chloride 89.9 L Carbon Dioxide BUN 26 H Creatinine 2.6 H Glucose POC Glucose Lactic Acid Calcium 7.0 L Ionized Calcium Phosphorus Magnesium Direct Bilirubin AST ALT Alkaline Phosphatase Lactate Dehydrogenase Troponin T C-Reactive Protein Total Protein Albumin Prealbumin Triglycerides Cholesterol LDL Cholesterol Direct HDL Cholesterol 25-OH Vitamin D Total PTH Intact Urine pH Urine WBC (Auto) Urine Creatinine Urine Total Protein Fluid Total Protein Vancomycin Trough Rheumatoid Factor Complement C4 Miscellaneous Test Crossmatch 10/02/16 10/03/16 10/03/16 23:45 00:45 05:10 WBC 12.9 H RBC 2.77 L Hgb 7.6 L Hct 23.7 L MCV MCH 27 L MCHC RDW 19.7 H Plt Count 89 L Lymph % (Auto) [place] % (Auto) Lymph # [place] # Baso # Seg Neutrophils % Seg Neuts % (Manual) Lymphocytes % (Manual) 8.0 L Monocytes % (Manual) Eosinophils % (Manual) Basophils % (Manual) Nucleated RBC % Seg Neutrophils # 11.9 H Seg Neutrophils # Man Lymphocytes # (Manual) 1.0 L Monocytes # (Manual) Eosinophils # (Manual) Basophils # (Manual) PT INR Fibrinogen dRVVT Confirm Interp Factor V Activity POC ABG pH POC ABG pCO2 POC ABG pO2 ABG pO2 ABG HCO3 ABG Base Excess ABG Hemoglobin Oxyhemoglobin Sodium Potassium Chloride Carbon Dioxide BUN Creatinine Glucose POC Glucose 55 L 199 H Lactic Acid Calcium Ionized Calcium Phosphorus Magnesium Direct Bilirubin AST ALT Alkaline Phosphatase Lactate Dehydrogenase Troponin T C-Reactive Protein Total Protein Albumin Prealbumin Triglycerides Cholesterol LDL Cholesterol Direct HDL Cholesterol 25-OH Vitamin D Total PTH Intact Urine pH Urine WBC (Auto) Urine Creatinine Urine Total Protein Fluid Total Protein Vancomycin Trough Rheumatoid Factor Complement C4 Miscellaneous Test Crossmatch 10/03/16 10/03/16 10/03/16 05:10 12:14 13:18 WBC RBC Hgb Hct MCV MCH MCHC RDW Plt Count Lymph % (Auto) [place] % (Auto) Lymph # [place] # Baso # Seg Neutrophils % Seg Neuts % (Manual) Lymphocytes % (Manual) Monocytes % (Manual) Eosinophils % (Manual) Basophils % (Manual) Nucleated RBC % Seg Neutrophils # Seg Neutrophils # Man Lymphocytes # (Manual) Monocytes # (Manual) Eosinophils # (Manual) Basophils # (Manual) PT INR Fibrinogen dRVVT Confirm Interp Factor V Activity POC ABG pH POC ABG pCO2 POC ABG pO2 ABG pO2 ABG HCO3 ABG Base Excess ABG Hemoglobin Oxyhemoglobin Sodium 129 L Potassium 3.3 L Chloride 88.8 L Carbon Dioxide 20 L BUN 29 H Creatinine 2.8 H Glucose POC Glucose 68 L 127 H Lactic Acid Calcium 7.2 L Ionized Calcium Phosphorus Magnesium Direct Bilirubin AST ALT Alkaline Phosphatase Lactate Dehydrogenase Troponin T C-Reactive Protein Total Protein Albumin Prealbumin Triglycerides Cholesterol LDL Cholesterol Direct HDL Cholesterol 25-OH Vitamin D Total PTH Intact Urine pH Urine WBC (Auto) Urine Creatinine Urine Total Protein Fluid Total Protein Vancomycin Trough Rheumatoid Factor Complement C4 Miscellaneous Test Crossmatch 10/03/16 10/03/16 10/03/16 14:42 18:21 19:09 WBC RBC Hgb Hct MCV MCH MCHC RDW Plt Count Lymph % (Auto) [place] % (Auto) Lymph # [place] # Baso # Seg Neutrophils % Seg Neuts % (Manual) Lymphocytes % (Manual) Monocytes % (Manual) Eosinophils % (Manual) Basophils % (Manual) Nucleated RBC % Seg Neutrophils # Seg Neutrophils # Man Lymphocytes # (Manual) Monocytes # (Manual) Eosinophils # (Manual) Basophils # (Manual) PT INR Fibrinogen dRVVT Confirm Interp Factor V Activity POC ABG pH 7.499 H POC ABG pCO2 28.4 L POC ABG pO2 44 L ABG pO2 ABG HCO3 ABG Base Excess ABG Hemoglobin Oxyhemoglobin Sodium Potassium Chloride Carbon Dioxide BUN Creatinine Glucose POC Glucose 64 L 205 H Lactic Acid Calcium Ionized Calcium Phosphorus Magnesium Direct Bilirubin AST ALT Alkaline Phosphatase Lactate Dehydrogenase Troponin T C-Reactive Protein Total Protein Albumin Prealbumin Triglycerides Cholesterol LDL Cholesterol Direct HDL Cholesterol 25-OH Vitamin D Total PTH Intact Urine pH Urine WBC (Auto) Urine Creatinine Urine Total Protein Fluid Total Protein Vancomycin Trough Rheumatoid Factor Complement C4 Miscellaneous Test Crossmatch 10/03/16 10/04/16 10/04/16 23:33 04:18 06:30 WBC RBC 2.54 L Hgb 7.1 L Hct 21.7 L MCV MCH MCHC RDW 19.5 H Plt Count 76 L Lymph % (Auto) [place] % (Auto) Lymph # [place] # Baso # Seg Neutrophils % Seg Neuts % (Manual) 88.0 H Lymphocytes % (Manual) 6.0 L Monocytes % (Manual) Eosinophils % (Manual) Basophils % (Manual) Nucleated RBC % Seg Neutrophils # Seg Neutrophils # Man 8.8 H Lymphocytes # (Manual) 0.6 L Monocytes # (Manual) Eosinophils # (Manual) Basophils # (Manual) PT INR Fibrinogen dRVVT Confirm Interp Factor V Activity POC ABG pH 7.461 H POC ABG pCO2 33.6 L POC ABG pO2 211 H ABG pO2 ABG HCO3 ABG Base Excess ABG Hemoglobin Oxyhemoglobin Sodium Potassium Chloride Carbon Dioxide BUN Creatinine Glucose POC Glucose 136 H Lactic Acid Calcium Ionized Calcium Phosphorus Magnesium Direct Bilirubin AST ALT Alkaline Phosphatase Lactate Dehydrogenase Troponin T C-Reactive Protein Total Protein Albumin Prealbumin Triglycerides Cholesterol LDL Cholesterol Direct HDL Cholesterol 25-OH Vitamin D Total PTH Intact Urine pH Urine WBC (Auto) Urine Creatinine Urine Total Protein Fluid Total Protein Vancomycin Trough Rheumatoid Factor Complement C4 Miscellaneous Test Crossmatch 10/04/16 10/04/16 10/04/16 06:30 11:45 17:54 WBC RBC Hgb Hct MCV MCH MCHC RDW Plt Count Lymph % (Auto) [place] % (Auto) Lymph # [place] # Baso # Seg Neutrophils % Seg Neuts % (Manual) Lymphocytes % (Manual) Monocytes % (Manual) Eosinophils % (Manual) Basophils % (Manual) Nucleated RBC % Seg Neutrophils # Seg Neutrophils # Man Lymphocytes # (Manual) Monocytes # (Manual) Eosinophils # (Manual) Basophils # (Manual) PT INR Fibrinogen dRVVT Confirm Interp Factor V Activity POC ABG pH POC ABG pCO2 POC ABG pO2 ABG pO2 ABG HCO3 ABG Base Excess ABG Hemoglobin Oxyhemoglobin Sodium 128 L Potassium Chloride 87.4 L Carbon Dioxide 20 L BUN 34 H Creatinine 2.9 H Glucose 127 H POC Glucose 158 H 160 H Lactic Acid Calcium 7.4 L Ionized Calcium Phosphorus Magnesium Direct Bilirubin AST ALT Alkaline Phosphatase Lactate Dehydrogenase Troponin T C-Reactive Protein Total Protein Albumin Prealbumin Triglycerides Cholesterol LDL Cholesterol Direct HDL Cholesterol 25-OH Vitamin D Total PTH Intact Urine pH Urine WBC (Auto) Urine Creatinine Urine Total Protein Fluid Total Protein Vancomycin Trough Rheumatoid Factor Complement C4 Miscellaneous Test Crossmatch 10/04/16 10/05/16 10/05/16 23:25 04:30 05:00 WBC RBC 2.64 L Hgb 7.5 L Hct 22.6 L MCV MCH MCHC RDW 19.3 H Plt Count 80 L Lymph % (Auto) [place] % (Auto) Lymph # [place] # Baso # Seg Neutrophils % Seg Neuts % (Manual) Lymphocytes % (Manual) 12.0 L Monocytes % (Manual) Eosinophils % (Manual) Basophils % (Manual) Nucleated RBC % Seg Neutrophils # Seg Neutrophils # Man Lymphocytes # (Manual) Monocytes # (Manual) Eosinophils # (Manual) Basophils # (Manual) PT INR Fibrinogen dRVVT Confirm Interp Factor V Activity POC ABG pH 7.475 H POC ABG pCO2 33.3 L POC ABG pO2 140 H ABG pO2 ABG HCO3 ABG Base Excess ABG Hemoglobin Oxyhemoglobin Sodium Potassium Chloride Carbon Dioxide BUN Creatinine Glucose POC Glucose 141 H Lactic Acid Calcium Ionized Calcium Phosphorus Magnesium Direct Bilirubin AST ALT Alkaline Phosphatase Lactate Dehydrogenase Troponin T C-Reactive Protein Total Protein Albumin Prealbumin Triglycerides Cholesterol LDL Cholesterol Direct HDL Cholesterol 25-OH Vitamin D Total PTH Intact Urine pH Urine WBC (Auto) Urine Creatinine Urine Total Protein Fluid Total Protein Vancomycin Trough Rheumatoid Factor Complement C4 Miscellaneous Test Crossmatch 10/05/16 10/05/16 10/05/16 05:00 05:09 12:58 WBC RBC Hgb Hct MCV MCH MCHC RDW Plt Count Lymph % (Auto) [place] % (Auto) Lymph # [place] # Baso # Seg Neutrophils % Seg Neuts % (Manual) Lymphocytes % (Manual) Monocytes % (Manual) Eosinophils % (Manual) Basophils % (Manual) Nucleated RBC % Seg Neutrophils # Seg Neutrophils # Man Lymphocytes # (Manual) Monocytes # (Manual) Eosinophils # (Manual) Basophils # (Manual) PT INR Fibrinogen dRVVT Confirm Interp Factor V Activity POC ABG pH POC ABG pCO2 POC ABG pO2 ABG pO2 ABG HCO3 ABG Base Excess ABG Hemoglobin Oxyhemoglobin Sodium 131 L Potassium Chloride 94.0 L Carbon Dioxide 20 L BUN 22 H Creatinine 2.0 H Glucose 123 H POC Glucose 166 H 179 H Lactic Acid Calcium 7.7 L Ionized Calcium Phosphorus 2.20 L D Magnesium Direct Bilirubin AST ALT Alkaline Phosphatase Lactate Dehydrogenase Troponin T C-Reactive Protein Total Protein Albumin Prealbumin Triglycerides Cholesterol LDL Cholesterol Direct HDL Cholesterol 25-OH Vitamin D Total PTH Intact Urine pH Urine WBC (Auto) Urine Creatinine Urine Total Protein Fluid Total Protein Vancomycin Trough Rheumatoid Factor Complement C4 Miscellaneous Test Crossmatch 10/05/16 10/05/16 10/05/16 15:50 18:53 23:12 WBC RBC Hgb Hct MCV MCH MCHC RDW Plt Count Lymph % (Auto) [place] % (Auto) Lymph # [place] # Baso # Seg Neutrophils % Seg Neuts % (Manual) Lymphocytes % (Manual) Monocytes % (Manual) Eosinophils % (Manual) Basophils % (Manual) Nucleated RBC % Seg Neutrophils # Seg Neutrophils # Man Lymphocytes # (Manual) Monocytes # (Manual) Eosinophils # (Manual) Basophils # (Manual) PT INR Fibrinogen dRVVT Confirm Interp Factor V Activity POC ABG pH POC ABG pCO2 POC ABG pO2 ABG pO2 ABG HCO3 ABG Base Excess ABG Hemoglobin Oxyhemoglobin Sodium Potassium Chloride Carbon Dioxide BUN Creatinine Glucose POC Glucose 150 H 164 H Lactic Acid Calcium Ionized Calcium Phosphorus Magnesium Direct Bilirubin AST ALT Alkaline Phosphatase Lactate Dehydrogenase Troponin T C-Reactive Protein Total Protein Albumin Prealbumin Triglycerides Cholesterol LDL Cholesterol Direct HDL Cholesterol 25-OH Vitamin D Total PTH Intact Urine pH Urine WBC (Auto) Urine Creatinine Urine Total Protein Fluid Total Protein Vancomycin Trough Rheumatoid Factor Complement C4 Miscellaneous Test Crossmatch See Detail 10/06/16 10/06/16 10/06/16 03:50 03:50 04:53 WBC RBC 3.00 L Hgb 8.6 L Hct 25.8 L MCV MCH MCHC RDW 17.9 H Plt Count 65 L Lymph % (Auto) [place] % (Auto) Lymph # [place] # Baso # Seg Neutrophils % Seg Neuts % (Manual) 30.0 L Lymphocytes % (Manual) 5.0 L Monocytes % (Manual) Eosinophils % (Manual) Basophils % (Manual) Nucleated RBC % Seg Neutrophils # Seg Neutrophils # Man Lymphocytes # (Manual) 0.4 L Monocytes # (Manual) Eosinophils # (Manual) Basophils # (Manual) PT INR Fibrinogen dRVVT Confirm Interp Factor V Activity POC ABG pH 7.310 L POC ABG pCO2 49.0 H POC ABG pO2 ABG pO2 ABG HCO3 ABG Base Excess ABG Hemoglobin Oxyhemoglobin Sodium 133 L Potassium Chloride 95.9 L Carbon Dioxide BUN 26 H Creatinine 2.0 H Glucose 116 H POC Glucose Lactic Acid Calcium 7.8 L Ionized Calcium Phosphorus Magnesium Direct Bilirubin AST ALT Alkaline Phosphatase Lactate Dehydrogenase Troponin T C-Reactive Protein Total Protein Albumin Prealbumin Triglycerides Cholesterol LDL Cholesterol Direct HDL Cholesterol 25-OH Vitamin D Total PTH Intact Urine pH Urine WBC (Auto) Urine Creatinine Urine Total Protein Fluid Total Protein Vancomycin Trough Rheumatoid Factor Complement C4 Miscellaneous Test Crossmatch 10/06/16 10/06/16 10/06/16 05:23 11:52 18:34 WBC RBC Hgb Hct MCV MCH MCHC RDW Plt Count Lymph % (Auto) [place] % (Auto) Lymph # [place] # Baso # Seg Neutrophils % Seg Neuts % (Manual) Lymphocytes % (Manual) Monocytes % (Manual) Eosinophils % (Manual) Basophils % (Manual) Nucleated RBC % Seg Neutrophils # Seg Neutrophils # Man Lymphocytes # (Manual) Monocytes # (Manual) Eosinophils # (Manual) Basophils # (Manual) PT INR Fibrinogen dRVVT Confirm Interp Factor V Activity POC ABG pH POC ABG pCO2 POC ABG pO2 ABG pO2 ABG HCO3 ABG Base Excess ABG Hemoglobin Oxyhemoglobin Sodium Potassium Chloride Carbon Dioxide BUN Creatinine Glucose POC Glucose 126 H 116 H 129 H Lactic Acid Calcium Ionized Calcium Phosphorus Magnesium Direct Bilirubin AST ALT Alkaline Phosphatase Lactate Dehydrogenase Troponin T C-Reactive Protein Total Protein Albumin Prealbumin Triglycerides Cholesterol LDL Cholesterol Direct HDL Cholesterol 25-OH Vitamin D Total PTH Intact Urine pH Urine WBC (Auto) Urine Creatinine Urine Total Protein Fluid Total Protein Vancomycin Trough Rheumatoid Factor Complement C4 Miscellaneous Test Crossmatch 10/07/16 10/07/16 10/07/16 03:45 05:00 10:00 WBC 17.0 H RBC 2.68 L Hgb 7.3 L Hct 25.3 L MCV MCH 27 L MCHC 29 L RDW 19.6 H Plt Count 74 L Lymph % (Auto) [place] % (Auto) Lymph # [place] # Baso # Seg Neutrophils % Seg Neuts % (Manual) Lymphocytes % (Manual) 12.0 L Monocytes % (Manual) Eosinophils % (Manual) Basophils % (Manual) Nucleated RBC % 4.0 H Seg Neutrophils # Seg Neutrophils # Man 10.7 H Lymphocytes # (Manual) Monocytes # (Manual) Eosinophils # (Manual) Basophils # (Manual) PT INR Fibrinogen dRVVT Confirm Interp Factor V Activity POC ABG pH POC ABG pCO2 POC ABG pO2 ABG pO2 ABG HCO3 ABG Base Excess ABG Hemoglobin Oxyhemoglobin Sodium 130 L Potassium 3.2 L Chloride 93.9 L Carbon Dioxide 20 L BUN 44 H Creatinine 2.7 H Glucose 129 H POC Glucose Lactic Acid Calcium 7.4 L Ionized Calcium Phosphorus Magnesium Direct Bilirubin AST ALT 6 L Alkaline Phosphatase 195 H Lactate Dehydrogenase Troponin T C-Reactive Protein Total Protein 4.9 L Albumin 1.0 L Prealbumin Triglycerides Cholesterol LDL Cholesterol Direct HDL Cholesterol 25-OH Vitamin D Total PTH Intact Urine pH Urine WBC (Auto) Urine Creatinine Urine Total Protein Fluid Total Protein Vancomycin Trough Rheumatoid Factor Complement C4 Miscellaneous Test Flexitest 1 H Crossmatch 10/07/16 10/07/16 10/07/16 10:00 11:24 18:10 WBC RBC Hgb Hct MCV MCH MCHC RDW Plt Count Lymph % (Auto) [place] % (Auto) Lymph # [place] # Baso # Seg Neutrophils % Seg Neuts % (Manual) Lymphocytes % (Manual) Monocytes % (Manual) Eosinophils % (Manual) Basophils % (Manual) Nucleated RBC % Seg Neutrophils # Seg Neutrophils # Man Lymphocytes # (Manual) Monocytes # (Manual) Eosinophils # (Manual) Basophils # (Manual) PT INR Fibrinogen dRVVT Confirm Interp Factor V Activity POC ABG pH POC ABG pCO2 POC ABG pO2 ABG pO2 ABG HCO3 ABG Base Excess ABG Hemoglobin Oxyhemoglobin Sodium Potassium Chloride Carbon Dioxide BUN Creatinine Glucose POC Glucose 116 H 130 H Lactic Acid Calcium Ionized Calcium Phosphorus Magnesium Direct Bilirubin AST ALT Alkaline Phosphatase Lactate Dehydrogenase Troponin T C-Reactive Protein 19.40 H Total Protein Albumin Prealbumin Triglycerides Cholesterol LDL Cholesterol Direct HDL Cholesterol 25-OH Vitamin D Total PTH Intact Urine pH Urine WBC (Auto) Urine Creatinine Urine Total Protein Fluid Total Protein Vancomycin Trough Rheumatoid Factor Complement C4 Miscellaneous Test Crossmatch 10/07/16 10/08/16 10/08/16 18:30 00:00 04:00 WBC RBC Hgb Hct MCV MCH MCHC RDW Plt Count Lymph % (Auto) [place] % (Auto) Lymph # [place] # Baso # Seg Neutrophils % Seg Neuts % (Manual) Lymphocytes % (Manual) Monocytes % (Manual) Eosinophils % (Manual) Basophils % (Manual) Nucleated RBC % Seg Neutrophils # Seg Neutrophils # Man Lymphocytes # (Manual) Monocytes # (Manual) Eosinophils # (Manual) Basophils # (Manual) PT INR Fibrinogen dRVVT Confirm Interp Factor V Activity POC ABG pH POC ABG pCO2 POC ABG pO2 ABG pO2 ABG HCO3 ABG Base Excess ABG Hemoglobin Oxyhemoglobin Sodium 132 L Potassium 3.3 L Chloride 93.6 L Carbon Dioxide 17 L BUN 59 H Creatinine 2.7 H Glucose 121 H POC Glucose 122 H Lactic Acid Calcium 7.6 L Ionized Calcium Phosphorus Magnesium Direct Bilirubin AST ALT Alkaline Phosphatase Lactate Dehydrogenase Troponin T C-Reactive Protein Total Protein Albumin Prealbumin Triglycerides Cholesterol LDL Cholesterol Direct HDL Cholesterol 25-OH Vitamin D Total PTH Intact Urine pH Urine WBC (Auto) > 182.0 H Urine Creatinine Urine Total Protein Fluid Total Protein Vancomycin Trough Rheumatoid Factor Complement C4 Miscellaneous Test Crossmatch 10/08/16 10/08/16 10/08/16 04:30 05:30 11:51 WBC RBC 5.15 H Hgb 14.4 H D Hct 44.5 H D MCV MCH MCHC RDW 19.5 H Plt Count 56 L Lymph % (Auto) [place] % (Auto) Lymph # [place] # Baso # Seg Neutrophils % Seg Neuts % (Manual) 24.0 L Lymphocytes % (Manual) 8.0 L Monocytes % (Manual) Eosinophils % (Manual) Basophils % (Manual) Nucleated RBC % 9.0 H Seg Neutrophils # Seg Neutrophils # Man Lymphocytes # (Manual) 0.7 L Monocytes # (Manual) Eosinophils # (Manual) Basophils # (Manual) PT INR Fibrinogen dRVVT Confirm Interp Factor V Activity POC ABG pH POC ABG pCO2 POC ABG pO2 ABG pO2 ABG HCO3 ABG Base Excess ABG Hemoglobin Oxyhemoglobin Sodium Potassium Chloride Carbon Dioxide BUN Creatinine Glucose POC Glucose 125 H 150 H Lactic Acid Calcium Ionized Calcium Phosphorus Magnesium Direct Bilirubin AST ALT Alkaline Phosphatase Lactate Dehydrogenase Troponin T C-Reactive Protein Total Protein Albumin Prealbumin Triglycerides Cholesterol LDL Cholesterol Direct HDL Cholesterol 25-OH Vitamin D Total PTH Intact Urine pH Urine WBC (Auto) Urine Creatinine Urine Total Protein Fluid Total Protein Vancomycin Trough Rheumatoid Factor Complement C4 Miscellaneous Test Crossmatch 10/08/16 10/08/16 10/08/16 12:49 17:07 19:30 WBC RBC Hgb 7.1 L D Hct 22.4 L D MCV MCH MCHC RDW Plt Count Lymph % (Auto) [place] % (Auto) Lymph # [place] # Baso # Seg Neutrophils % Seg Neuts % (Manual) Lymphocytes % (Manual) Monocytes % (Manual) Eosinophils % (Manual) Basophils % (Manual) Nucleated RBC % Seg Neutrophils # Seg Neutrophils # Man Lymphocytes # (Manual) Monocytes # (Manual) Eosinophils # (Manual) Basophils # (Manual) PT INR Fibrinogen dRVVT Confirm Interp Factor V Activity POC ABG pH POC ABG pCO2 28.2 L POC ABG pO2 111 H ABG pO2 ABG HCO3 ABG Base Excess ABG Hemoglobin Oxyhemoglobin Sodium Potassium Chloride Carbon Dioxide BUN Creatinine Glucose POC Glucose 145 H Lactic Acid Calcium Ionized Calcium Phosphorus Magnesium Direct Bilirubin AST ALT Alkaline Phosphatase Lactate Dehydrogenase Troponin T C-Reactive Protein Total Protein Albumin Prealbumin Triglycerides Cholesterol LDL Cholesterol Direct HDL Cholesterol 25-OH Vitamin D Total PTH Intact Urine pH Urine WBC (Auto) Urine Creatinine Urine Total Protein Fluid Total Protein Vancomycin Trough Rheumatoid Factor Complement C4 Miscellaneous Test Crossmatch 10/08/16 10/09/16 10/09/16 19:30 03:45 03:45 WBC 12.6 H RBC 2.36 L Hgb 6.7 L Hct 21.1 L MCV MCH MCHC RDW 19.5 H Plt Count 75 L Lymph % (Auto) [place] % (Auto) Lymph # [place] # Baso # Seg Neutrophils % Seg Neuts % (Manual) Lymphocytes % (Manual) Monocytes % (Manual) 10.0 H Eosinophils % (Manual) Basophils % (Manual) Nucleated RBC % 3.0 H Seg Neutrophils # Seg Neutrophils # Man Lymphocytes # (Manual) Monocytes # (Manual) 1.3 H Eosinophils # (Manual) Basophils # (Manual) PT 18.0 H INR 1.41 H Fibrinogen dRVVT Confirm Interp Factor V Activity POC ABG pH POC ABG pCO2 POC ABG pO2 ABG pO2 ABG HCO3 ABG Base Excess ABG Hemoglobin Oxyhemoglobin Sodium 135 L Potassium Chloride Carbon Dioxide 17 L BUN 81 H Creatinine 3.2 H Glucose 109 H POC Glucose Lactic Acid Calcium 7.4 L Ionized Calcium Phosphorus 4.60 H D Magnesium Direct Bilirubin AST ALT Alkaline Phosphatase Lactate Dehydrogenase Troponin T C-Reactive Protein Total Protein Albumin Prealbumin Triglycerides Cholesterol LDL Cholesterol Direct HDL Cholesterol 25-OH Vitamin D Total PTH Intact Urine pH Urine WBC (Auto) Urine Creatinine Urine Total Protein Fluid Total Protein Vancomycin Trough Rheumatoid Factor Complement C4 Miscellaneous Test Crossmatch 10/09/16 10/09/16 10/09/16 03:45 05:14 07:20 WBC RBC Hgb Hct MCV MCH MCHC RDW Plt Count Lymph % (Auto) [place] % (Auto) Lymph # [place] # Baso # Seg Neutrophils % Seg Neuts % (Manual) Lymphocytes % (Manual) Monocytes % (Manual) Eosinophils % (Manual) Basophils % (Manual) Nucleated RBC % Seg Neutrophils # Seg Neutrophils # Man Lymphocytes # (Manual) Monocytes # (Manual) Eosinophils # (Manual) Basophils # (Manual) PT 19.0 H INR 1.51 H Fibrinogen dRVVT Confirm Interp Factor V Activity POC ABG pH POC ABG pCO2 POC ABG pO2 ABG pO2 ABG HCO3 ABG Base Excess ABG Hemoglobin Oxyhemoglobin Sodium Potassium Chloride Carbon Dioxide BUN Creatinine Glucose POC Glucose 151 H Lactic Acid Calcium Ionized Calcium Phosphorus Magnesium Direct Bilirubin AST ALT Alkaline Phosphatase Lactate Dehydrogenase Troponin T C-Reactive Protein Total Protein Albumin Prealbumin Triglycerides Cholesterol LDL Cholesterol Direct HDL Cholesterol 25-OH Vitamin D Total PTH Intact Urine pH Urine WBC (Auto) Urine Creatinine Urine Total Protein Fluid Total Protein Vancomycin Trough Rheumatoid Factor Complement C4 Miscellaneous Test Crossmatch See Detail 10/09/16 10/09/16 10/09/16 11:46 16:20 16:43 WBC RBC Hgb 7.2 L Hct 22.2 L MCV MCH MCHC RDW Plt Count Lymph % (Auto) [place] % (Auto) Lymph # [place] # Baso # Seg Neutrophils % Seg Neuts % (Manual) Lymphocytes % (Manual) Monocytes % (Manual) Eosinophils % (Manual) Basophils % (Manual) Nucleated RBC % Seg Neutrophils # Seg Neutrophils # Man Lymphocytes # (Manual) Monocytes # (Manual) Eosinophils # (Manual) Basophils # (Manual) PT INR Fibrinogen dRVVT Confirm Interp Factor V Activity POC ABG pH POC ABG pCO2 POC ABG pO2 ABG pO2 ABG HCO3 ABG Base Excess ABG Hemoglobin Oxyhemoglobin Sodium Potassium Chloride Carbon Dioxide BUN Creatinine Glucose POC Glucose 133 H 141 H Lactic Acid Calcium Ionized Calcium Phosphorus Magnesium Direct Bilirubin AST ALT Alkaline Phosphatase Lactate Dehydrogenase Troponin T C-Reactive Protein Total Protein Albumin Prealbumin Triglycerides Cholesterol LDL Cholesterol Direct HDL Cholesterol 25-OH Vitamin D Total PTH Intact Urine pH Urine WBC (Auto) Urine Creatinine Urine Total Protein Fluid Total Protein Vancomycin Trough Rheumatoid Factor Complement C4 Miscellaneous Test Crossmatch 10/10/16 10/10/16 10/10/16 05:00 05:00 11:19 WBC 18.5 H RBC 2.19 L Hgb 6.4 L Hct 19.6 L* MCV MCH MCHC RDW 19.3 H Plt Count 93 L Lymph % (Auto) [place] % (Auto) Lymph # [place] # Baso # Seg Neutrophils % Seg Neuts % (Manual) Lymphocytes % (Manual) 10.0 L Monocytes % (Manual) Eosinophils % (Manual) Basophils % (Manual) Nucleated RBC % 4.0 H Seg Neutrophils # Seg Neutrophils # Man 11.3 H Lymphocytes # (Manual) Monocytes # (Manual) Eosinophils # (Manual) Basophils # (Manual) PT INR Fibrinogen dRVVT Confirm Interp Factor V Activity POC ABG pH POC ABG pCO2 POC ABG pO2 ABG pO2 ABG HCO3 ABG Base Excess ABG Hemoglobin Oxyhemoglobin Sodium Potassium 5.7 H D Chloride Carbon Dioxide 16 L BUN 94 H Creatinine 3.1 H Glucose 131 H POC Glucose 153 H Lactic Acid Calcium 8.2 L Ionized Calcium Phosphorus 5.10 H Magnesium 2.40 H Direct Bilirubin 0.3 H AST ALT < 5 L Alkaline Phosphatase 319 H Lactate Dehydrogenase Troponin T C-Reactive Protein Total Protein 5.1 L Albumin 1.0 L Prealbumin Triglycerides Cholesterol LDL Cholesterol Direct HDL Cholesterol 25-OH Vitamin D Total PTH Intact Urine pH Urine WBC (Auto) Urine Creatinine Urine Total Protein Fluid Total Protein Vancomycin Trough Rheumatoid Factor Complement C4 Miscellaneous Test Crossmatch 10/10/16 10/10/16 10/11/16 17:50 23:30 04:15 WBC RBC Hgb Hct MCV MCH MCHC RDW Plt Count Lymph % (Auto) [place] % (Auto) Lymph # [place] # Baso # Seg Neutrophils % Seg Neuts % (Manual) Lymphocytes % (Manual) Monocytes % (Manual) Eosinophils % (Manual) Basophils % (Manual) Nucleated RBC % Seg Neutrophils # Seg Neutrophils # Man Lymphocytes # (Manual) Monocytes # (Manual) Eosinophils # (Manual) Basophils # (Manual) PT INR Fibrinogen dRVVT Confirm Interp Factor V Activity POC ABG pH POC ABG pCO2 POC ABG pO2 ABG pO2 ABG HCO3 ABG Base Excess ABG Hemoglobin Oxyhemoglobin Sodium Potassium Chloride 96.4 L Carbon Dioxide 21 L BUN 57 H Creatinine 2.1 H Glucose 151 H POC Glucose 146 H 141 H Lactic Acid Calcium 8.3 L Ionized Calcium Phosphorus Magnesium Direct Bilirubin AST ALT Alkaline Phosphatase Lactate Dehydrogenase Troponin T C-Reactive Protein Total Protein Albumin Prealbumin Triglycerides Cholesterol LDL Cholesterol Direct HDL Cholesterol 25-OH Vitamin D Total PTH Intact Urine pH Urine WBC (Auto) Urine Creatinine Urine Total Protein Fluid Total Protein Vancomycin Trough Rheumatoid Factor Complement C4 Miscellaneous Test Crossmatch 10/11/16 10/11/16 10/11/16 04:15 04:15 05:30 WBC 28.3 H RBC 3.12 L Hgb 9.3 L Hct 28.7 L D MCV MCH MCHC RDW 17.7 H Plt Count 128 L Lymph % (Auto) [place] % (Auto) Lymph # [place] # Baso # Seg Neutrophils % Seg Neuts % (Manual) Lymphocytes % (Manual) Monocytes % (Manual) Eosinophils % (Manual) Basophils % (Manual) Nucleated RBC % Seg Neutrophils # Seg Neutrophils # Man Lymphocytes # (Manual) Monocytes # (Manual) Eosinophils # (Manual) Basophils # (Manual) PT INR Fibrinogen dRVVT Confirm Interp Factor V Activity POC ABG pH POC ABG pCO2 POC ABG pO2 ABG pO2 ABG HCO3 ABG Base Excess ABG Hemoglobin Oxyhemoglobin Sodium Potassium Chloride Carbon Dioxide BUN Creatinine Glucose POC Glucose 167 H Lactic Acid Calcium Ionized Calcium Phosphorus Magnesium Direct Bilirubin AST ALT Alkaline Phosphatase Lactate Dehydrogenase Troponin T C-Reactive Protein 15.80 H Total Protein Albumin Prealbumin Triglycerides Cholesterol LDL Cholesterol Direct HDL Cholesterol 25-OH Vitamin D Total PTH Intact Urine pH Urine WBC (Auto) Urine Creatinine Urine Total Protein Fluid Total Protein Vancomycin Trough Rheumatoid Factor Complement C4 Miscellaneous Test Crossmatch 10/11/16 10/11/16 10/11/16 11:40 15:49 23:57 WBC RBC Hgb Hct MCV MCH MCHC RDW Plt Count Lymph % (Auto) [place] % (Auto) Lymph # [place] # Baso # Seg Neutrophils % Seg Neuts % (Manual) Lymphocytes % (Manual) Monocytes % (Manual) Eosinophils % (Manual) Basophils % (Manual) Nucleated RBC % Seg Neutrophils # Seg Neutrophils # Man Lymphocytes # (Manual) Monocytes # (Manual) Eosinophils # (Manual) Basophils # (Manual) PT INR Fibrinogen dRVVT Confirm Interp Factor V Activity POC ABG pH POC ABG pCO2 POC ABG pO2 ABG pO2 ABG HCO3 ABG Base Excess ABG Hemoglobin Oxyhemoglobin Sodium Potassium Chloride Carbon Dioxide BUN Creatinine Glucose POC Glucose 139 H 168 H 161 H Lactic Acid Calcium Ionized Calcium Phosphorus Magnesium Direct Bilirubin AST ALT Alkaline Phosphatase Lactate Dehydrogenase Troponin T C-Reactive Protein Total Protein Albumin Prealbumin Triglycerides Cholesterol LDL Cholesterol Direct HDL Cholesterol 25-OH Vitamin D Total PTH Intact Urine pH Urine WBC (Auto) Urine Creatinine Urine Total Protein Fluid Total Protein Vancomycin Trough Rheumatoid Factor Complement C4 Miscellaneous Test Crossmatch 10/12/16 10/12/16 10/12/16 04:40 04:40 05:44 WBC 22.5 H RBC 2.88 L Hgb 8.8 L Hct 26.8 L MCV MCH MCHC RDW 17.8 H Plt Count Lymph % (Auto) [place] % (Auto) Lymph # [place] # Baso # Seg Neutrophils % Seg Neuts % (Manual) Lymphocytes % (Manual) Monocytes % (Manual) Eosinophils % (Manual) Basophils % (Manual) Nucleated RBC % Seg Neutrophils # Seg Neutrophils # Man Lymphocytes # (Manual) Monocytes # (Manual) Eosinophils # (Manual) Basophils # (Manual) PT INR Fibrinogen dRVVT Confirm Interp Factor V Activity POC ABG pH POC ABG pCO2 POC ABG pO2 ABG pO2 ABG HCO3 ABG Base Excess ABG Hemoglobin Oxyhemoglobin Sodium 134 L Potassium Chloride 93.0 L Carbon Dioxide BUN 74 H Creatinine 2.5 H Glucose 137 H POC Glucose 158 H Lactic Acid Calcium 8.2 L Ionized Calcium Phosphorus Magnesium Direct Bilirubin AST ALT Alkaline Phosphatase Lactate Dehydrogenase Troponin T C-Reactive Protein Total Protein Albumin Prealbumin Triglycerides Cholesterol LDL Cholesterol Direct HDL Cholesterol 25-OH Vitamin D Total PTH Intact Urine pH Urine WBC (Auto) Urine Creatinine Urine Total Protein Fluid Total Protein Vancomycin Trough Rheumatoid Factor Complement C4 Miscellaneous Test Crossmatch 10/12/16 10/12/16 10/12/16 12:27 18:18 23:46 WBC RBC Hgb Hct MCV MCH MCHC RDW Plt Count Lymph % (Auto) [place] % (Auto) Lymph # [place] # Baso # Seg Neutrophils % Seg Neuts % (Manual) Lymphocytes % (Manual) Monocytes % (Manual) Eosinophils % (Manual) Basophils % (Manual) Nucleated RBC % Seg Neutrophils # Seg Neutrophils # Man Lymphocytes # (Manual) Monocytes # (Manual) Eosinophils # (Manual) Basophils # (Manual) PT INR Fibrinogen dRVVT Confirm Interp Factor V Activity POC ABG pH POC ABG pCO2 POC ABG pO2 ABG pO2 ABG HCO3 ABG Base Excess ABG Hemoglobin Oxyhemoglobin Sodium Potassium Chloride Carbon Dioxide BUN Creatinine Glucose POC Glucose 153 H 140 H 150 H Lactic Acid Calcium Ionized Calcium Phosphorus Magnesium Direct Bilirubin AST ALT Alkaline Phosphatase Lactate Dehydrogenase Troponin T C-Reactive Protein Total Protein Albumin Prealbumin Triglycerides Cholesterol LDL Cholesterol Direct HDL Cholesterol 25-OH Vitamin D Total PTH Intact Urine pH Urine WBC (Auto) Urine Creatinine Urine Total Protein Fluid Total Protein Vancomycin Trough Rheumatoid Factor Complement C4 Miscellaneous Test Crossmatch 10/13/16 10/13/16 10/13/16 06:22 09:20 12:29 WBC RBC Hgb Hct MCV MCH MCHC RDW Plt Count Lymph % (Auto) [place] % (Auto) Lymph # [place] # Baso # Seg Neutrophils % Seg Neuts % (Manual) Lymphocytes % (Manual) Monocytes % (Manual) Eosinophils % (Manual) Basophils % (Manual) Nucleated RBC % Seg Neutrophils # Seg Neutrophils # Man Lymphocytes # (Manual) Monocytes # (Manual) Eosinophils # (Manual) Basophils # (Manual) PT INR Fibrinogen dRVVT Confirm Interp Factor V Activity POC ABG pH POC ABG pCO2 POC ABG pO2 ABG pO2 ABG HCO3 ABG Base Excess ABG Hemoglobin Oxyhemoglobin Sodium Potassium Chloride Carbon Dioxide BUN Creatinine Glucose POC Glucose 165 H 193 H Lactic Acid Calcium Ionized Calcium Phosphorus Magnesium Direct Bilirubin AST ALT Alkaline Phosphatase Lactate Dehydrogenase Troponin T C-Reactive Protein Total Protein Albumin Prealbumin Triglycerides Cholesterol LDL Cholesterol Direct HDL Cholesterol 25-OH Vitamin D Total PTH Intact Urine pH Urine WBC (Auto) Urine Creatinine Urine Total Protein Fluid Total Protein Vancomycin Trough Rheumatoid Factor Complement C4 Miscellaneous Test Flexitest 1 H Crossmatch 10/13/16 10/13/16 10/13/16 18:09 Unknown Unknown WBC 23.4 H RBC 2.83 L Hgb 8.7 L Hct 26.1 L MCV MCH MCHC RDW 18.1 H Plt Count Lymph % (Auto) [place] % (Auto) Lymph # [place] # Baso # Seg Neutrophils % Seg Neuts % (Manual) Lymphocytes % (Manual) Monocytes % (Manual) Eosinophils % (Manual) Basophils % (Manual) Nucleated RBC % Seg Neutrophils # Seg Neutrophils # Man Lymphocytes # (Manual) Monocytes # (Manual) Eosinophils # (Manual) Basophils # (Manual) PT INR Fibrinogen dRVVT Confirm Interp Factor V Activity POC ABG pH POC ABG pCO2 POC ABG pO2 ABG pO2 ABG HCO3 ABG Base Excess ABG Hemoglobin Oxyhemoglobin Sodium Potassium Chloride 95.8 L Carbon Dioxide BUN 82 H Creatinine 2.6 H Glucose 152 H POC Glucose 166 H Lactic Acid Calcium Ionized Calcium Phosphorus Magnesium Direct Bilirubin AST ALT Alkaline Phosphatase Lactate Dehydrogenase Troponin T C-Reactive Protein Total Protein Albumin Prealbumin Triglycerides Cholesterol LDL Cholesterol Direct HDL Cholesterol 25-OH Vitamin D Total PTH Intact Urine pH Urine WBC (Auto) Urine Creatinine Urine Total Protein Fluid Total Protein Vancomycin Trough Rheumatoid Factor Complement C4 Miscellaneous Test Crossmatch 10/14/16 10/14/16 10/14/16 05:38 06:35 08:10 WBC 20.7 H RBC 2.81 L Hgb 8.4 L Hct 27.2 L MCV MCH MCHC RDW 19.4 H Plt Count Lymph % (Auto) [place] % (Auto) Lymph # [place] # Baso # Seg Neutrophils % Seg Neuts % (Manual) Lymphocytes % (Manual) Monocytes % (Manual) Eosinophils % (Manual) Basophils % (Manual) Nucleated RBC % Seg Neutrophils # Seg Neutrophils # Man Lymphocytes # (Manual) Monocytes # (Manual) Eosinophils # (Manual) Basophils # (Manual) PT INR Fibrinogen dRVVT Confirm Interp Factor V Activity POC ABG pH POC ABG pCO2 POC ABG pO2 ABG pO2 ABG HCO3 ABG Base Excess ABG Hemoglobin Oxyhemoglobin Sodium Potassium Chloride Carbon Dioxide BUN 58 H Creatinine 1.9 H Glucose 169 H POC Glucose 195 H Lactic Acid Calcium Ionized Calcium Phosphorus Magnesium Direct Bilirubin AST ALT Alkaline Phosphatase Lactate Dehydrogenase Troponin T C-Reactive Protein Total Protein Albumin Prealbumin Triglycerides Cholesterol LDL Cholesterol Direct HDL Cholesterol 25-OH Vitamin D Total PTH Intact Urine pH Urine WBC (Auto) Urine Creatinine Urine Total Protein Fluid Total Protein Vancomycin Trough Rheumatoid Factor Complement C4 Miscellaneous Test Crossmatch 10/14/16 10/14/16 10/14/16 11:44 17:13 23:28 WBC RBC Hgb Hct MCV MCH MCHC RDW Plt Count Lymph % (Auto) [place] % (Auto) Lymph # [place] # Baso # Seg Neutrophils % Seg Neuts % (Manual) Lymphocytes % (Manual) Monocytes % (Manual) Eosinophils % (Manual) Basophils % (Manual) Nucleated RBC % Seg Neutrophils # Seg Neutrophils # Man Lymphocytes # (Manual) Monocytes # (Manual) Eosinophils # (Manual) Basophils # (Manual) PT INR Fibrinogen dRVVT Confirm Interp Factor V Activity POC ABG pH POC ABG pCO2 POC ABG pO2 ABG pO2 ABG HCO3 ABG Base Excess ABG Hemoglobin Oxyhemoglobin Sodium Potassium Chloride Carbon Dioxide BUN Creatinine Glucose POC Glucose 174 H 121 H 151 H Lactic Acid Calcium Ionized Calcium Phosphorus Magnesium Direct Bilirubin AST ALT Alkaline Phosphatase Lactate Dehydrogenase Troponin T C-Reactive Protein Total Protein Albumin Prealbumin Triglycerides Cholesterol LDL Cholesterol Direct HDL Cholesterol 25-OH Vitamin D Total PTH Intact Urine pH Urine WBC (Auto) Urine Creatinine Urine Total Protein Fluid Total Protein Vancomycin Trough Rheumatoid Factor Complement C4 Miscellaneous Test Crossmatch 10/15/16 10/15/16 10/15/16 05:06 12:26 17:48 WBC RBC Hgb Hct MCV MCH MCHC RDW Plt Count Lymph % (Auto) [place] % (Auto) Lymph # [place] # Baso # Seg Neutrophils % Seg Neuts % (Manual) Lymphocytes % (Manual) Monocytes % (Manual) Eosinophils % (Manual) Basophils % (Manual) Nucleated RBC % Seg Neutrophils # Seg Neutrophils # Man Lymphocytes # (Manual) Monocytes # (Manual) Eosinophils # (Manual) Basophils # (Manual) PT INR Fibrinogen dRVVT Confirm Interp Factor V Activity POC ABG pH POC ABG pCO2 POC ABG pO2 ABG pO2 ABG HCO3 ABG Base Excess ABG Hemoglobin Oxyhemoglobin Sodium Potassium Chloride Carbon Dioxide BUN Creatinine Glucose POC Glucose 151 H 149 H 153 H Lactic Acid Calcium Ionized Calcium Phosphorus Magnesium Direct Bilirubin AST ALT Alkaline Phosphatase Lactate Dehydrogenase Troponin T C-Reactive Protein Total Protein Albumin Prealbumin Triglycerides Cholesterol LDL Cholesterol Direct HDL Cholesterol 25-OH Vitamin D Total PTH Intact Urine pH Urine WBC (Auto) Urine Creatinine Urine Total Protein Fluid Total Protein Vancomycin Trough Rheumatoid Factor Complement C4 Miscellaneous Test Crossmatch 10/15/16 10/15/16 10/16/16 Unknown Unknown 00:02 WBC 23.4 H RBC 2.78 L Hgb 8.5 L Hct 25.7 L MCV MCH MCHC RDW 18.7 H Plt Count Lymph % (Auto) [place] % (Auto) Lymph # [place] # Baso # Seg Neutrophils % Seg Neuts % (Manual) Lymphocytes % (Manual) Monocytes % (Manual) Eosinophils % (Manual) Basophils % (Manual) Nucleated RBC % Seg Neutrophils # Seg Neutrophils # Man Lymphocytes # (Manual) Monocytes # (Manual) Eosinophils # (Manual) Basophils # (Manual) PT INR Fibrinogen dRVVT Confirm Interp Factor V Activity POC ABG pH POC ABG pCO2 POC ABG pO2 ABG pO2 ABG HCO3 ABG Base Excess ABG Hemoglobin Oxyhemoglobin Sodium Potassium Chloride Carbon Dioxide BUN 73 H Creatinine 2.3 H Glucose 120 H POC Glucose 137 H Lactic Acid Calcium Ionized Calcium Phosphorus Magnesium Direct Bilirubin AST ALT Alkaline Phosphatase Lactate Dehydrogenase Troponin T C-Reactive Protein Total Protein Albumin Prealbumin Triglycerides Cholesterol LDL Cholesterol Direct HDL Cholesterol 25-OH Vitamin D Total PTH Intact Urine pH Urine WBC (Auto) Urine Creatinine Urine Total Protein Fluid Total Protein Vancomycin Trough Rheumatoid Factor Complement C4 Miscellaneous Test Crossmatch 10/16/16 10/16/16 10/16/16 05:44 06:25 06:25 WBC 22.5 H RBC 2.76 L Hgb 8.3 L Hct 25.2 L MCV MCH MCHC RDW 18.3 H Plt Count Lymph % (Auto) [place] % (Auto) Lymph # [place] # Baso # Seg Neutrophils % Seg Neuts % (Manual) Lymphocytes % (Manual) Monocytes % (Manual) Eosinophils % (Manual) Basophils % (Manual) Nucleated RBC % Seg Neutrophils # Seg Neutrophils # Man Lymphocytes # (Manual) Monocytes # (Manual) Eosinophils # (Manual) Basophils # (Manual) PT INR Fibrinogen dRVVT Confirm Interp Factor V Activity POC ABG pH POC ABG pCO2 POC ABG pO2 ABG pO2 ABG HCO3 ABG Base Excess ABG Hemoglobin Oxyhemoglobin Sodium Potassium Chloride Carbon Dioxide BUN 92 H Creatinine 3.0 H Glucose 138 H POC Glucose 110 H Lactic Acid Calcium Ionized Calcium Phosphorus Magnesium Direct Bilirubin AST ALT Alkaline Phosphatase Lactate Dehydrogenase Troponin T C-Reactive Protein Total Protein Albumin Prealbumin Triglycerides Cholesterol LDL Cholesterol Direct HDL Cholesterol 25-OH Vitamin D Total PTH Intact Urine pH Urine WBC (Auto) Urine Creatinine Urine Total Protein Fluid Total Protein Vancomycin Trough Rheumatoid Factor Complement C4 Miscellaneous Test Crossmatch 10/16/16 10/16/16 10/16/16 11:27 11:48 17:36 WBC RBC Hgb Hct MCV MCH MCHC RDW Plt Count Lymph % (Auto) [place] % (Auto) Lymph # [place] # Baso # Seg Neutrophils % Seg Neuts % (Manual) Lymphocytes % (Manual) Monocytes % (Manual) Eosinophils % (Manual) Basophils % (Manual) Nucleated RBC % Seg Neutrophils # Seg Neutrophils # Man Lymphocytes # (Manual) Monocytes # (Manual) Eosinophils # (Manual) Basophils # (Manual) PT INR Fibrinogen dRVVT Confirm Interp Factor V Activity POC ABG pH 7.582 H POC ABG pCO2 27.4 L POC ABG pO2 110 H ABG pO2 ABG HCO3 ABG Base Excess ABG Hemoglobin Oxyhemoglobin Sodium Potassium Chloride Carbon Dioxide BUN Creatinine Glucose POC Glucose 121 H 133 H Lactic Acid Calcium Ionized Calcium Phosphorus Magnesium Direct Bilirubin AST ALT Alkaline Phosphatase Lactate Dehydrogenase Troponin T C-Reactive Protein Total Protein Albumin Prealbumin Triglycerides Cholesterol LDL Cholesterol Direct HDL Cholesterol 25-OH Vitamin D Total PTH Intact Urine pH Urine WBC (Auto) Urine Creatinine Urine Total Protein Fluid Total Protein Vancomycin Trough Rheumatoid Factor Complement C4 Miscellaneous Test Crossmatch 10/16/16 10/17/16 10/17/16 20:48 04:24 04:24 WBC 21.4 H RBC 2.72 L Hgb 8.0 L Hct 25.2 L MCV MCH MCHC RDW 18.0 H Plt Count Lymph % (Auto) [place] % (Auto) Lymph # [place] # Baso # Seg Neutrophils % Seg Neuts % (Manual) Lymphocytes % (Manual) Monocytes % (Manual) Eosinophils % (Manual) Basophils % (Manual) Nucleated RBC % Seg Neutrophils # Seg Neutrophils # Man Lymphocytes # (Manual) Monocytes # (Manual) Eosinophils # (Manual) Basophils # (Manual) PT INR Fibrinogen dRVVT Confirm Interp Factor V Activity POC ABG pH 7.561 H POC ABG pCO2 24.4 L POC ABG pO2 77 L ABG pO2 ABG HCO3 ABG Base Excess ABG Hemoglobin Oxyhemoglobin Sodium 148 H Potassium Chloride Carbon Dioxide BUN 104 H Creatinine 3.0 H Glucose 149 H POC Glucose Lactic Acid Calcium Ionized Calcium Phosphorus Magnesium Direct Bilirubin AST ALT Alkaline Phosphatase 138 H Lactate Dehydrogenase Troponin T C-Reactive Protein Total Protein 6.2 L Albumin 1.5 L Prealbumin Triglycerides Cholesterol LDL Cholesterol Direct HDL Cholesterol 25-OH Vitamin D Total PTH Intact Urine pH Urine WBC (Auto) Urine Creatinine Urine Total Protein Fluid Total Protein Vancomycin Trough Rheumatoid Factor Complement C4 Miscellaneous Test Crossmatch 10/17/16 10/17/16 10/17/16 06:02 12:17 17:14 WBC RBC Hgb Hct MCV MCH MCHC RDW Plt Count Lymph % (Auto) [place] % (Auto) Lymph # [place] # Baso # Seg Neutrophils % Seg Neuts % (Manual) Lymphocytes % (Manual) Monocytes % (Manual) Eosinophils % (Manual) Basophils % (Manual) Nucleated RBC % Seg Neutrophils # Seg Neutrophils # Man Lymphocytes # (Manual) Monocytes # (Manual) Eosinophils # (Manual) Basophils # (Manual) PT INR Fibrinogen dRVVT Confirm Interp Factor V Activity POC ABG pH POC ABG pCO2 POC ABG pO2 ABG pO2 ABG HCO3 ABG Base Excess ABG Hemoglobin Oxyhemoglobin Sodium Potassium Chloride Carbon Dioxide BUN Creatinine Glucose POC Glucose 170 H 167 H 126 H Lactic Acid Calcium Ionized Calcium Phosphorus Magnesium Direct Bilirubin AST ALT Alkaline Phosphatase Lactate Dehydrogenase Troponin T C-Reactive Protein Total Protein Albumin Prealbumin Triglycerides Cholesterol LDL Cholesterol Direct HDL Cholesterol 25-OH Vitamin D Total PTH Intact Urine pH Urine WBC (Auto) Urine Creatinine Urine Total Protein Fluid Total Protein Vancomycin Trough Rheumatoid Factor Complement C4 Miscellaneous Test Crossmatch 10/17/16 10/18/16 10/18/16 23:17 04:00 04:00 WBC 20.7 H RBC 2.47 L Hgb 7.4 L Hct 22.9 L MCV MCH MCHC RDW 17.5 H Plt Count Lymph % (Auto) [place] % (Auto) Lymph # [place] # Baso # Seg Neutrophils % Seg Neuts % (Manual) Lymphocytes % (Manual) Monocytes % (Manual) Eosinophils % (Manual) Basophils % (Manual) Nucleated RBC % Seg Neutrophils # Seg Neutrophils # Man Lymphocytes # (Manual) Monocytes # (Manual) Eosinophils # (Manual) Basophils # (Manual) PT INR Fibrinogen dRVVT Confirm Interp Factor V Activity POC ABG pH POC ABG pCO2 POC ABG pO2 ABG pO2 ABG HCO3 ABG Base Excess ABG Hemoglobin Oxyhemoglobin Sodium 149 H Potassium Chloride 107.9 H Carbon Dioxide 20 L BUN 117 H Creatinine 3.2 H Glucose 119 H POC Glucose 121 H Lactic Acid Calcium Ionized Calcium Phosphorus Magnesium Direct Bilirubin AST ALT Alkaline Phosphatase Lactate Dehydrogenase Troponin T C-Reactive Protein Total Protein Albumin Prealbumin Triglycerides Cholesterol LDL Cholesterol Direct HDL Cholesterol 25-OH Vitamin D Total PTH Intact Urine pH Urine WBC (Auto) Urine Creatinine Urine Total Protein Fluid Total Protein Vancomycin Trough Rheumatoid Factor Complement C4 Miscellaneous Test Crossmatch 10/18/16 10/18/16 10/18/16 05:23 10:46 17:30 WBC RBC Hgb Hct MCV MCH MCHC RDW Plt Count Lymph % (Auto) [place] % (Auto) Lymph # [place] # Baso # Seg Neutrophils % Seg Neuts % (Manual) Lymphocytes % (Manual) Monocytes % (Manual) Eosinophils % (Manual) Basophils % (Manual) Nucleated RBC % Seg Neutrophils # Seg Neutrophils # Man Lymphocytes # (Manual) Monocytes # (Manual) Eosinophils # (Manual) Basophils # (Manual) PT INR Fibrinogen dRVVT Confirm Interp Factor V Activity POC ABG pH POC ABG pCO2 POC ABG pO2 ABG pO2 ABG HCO3 ABG Base Excess ABG Hemoglobin Oxyhemoglobin Sodium Potassium Chloride Carbon Dioxide BUN Creatinine Glucose POC Glucose 119 H 155 H 124 H Lactic Acid Calcium Ionized Calcium Phosphorus Magnesium Direct Bilirubin AST ALT Alkaline Phosphatase Lactate Dehydrogenase Troponin T C-Reactive Protein Total Protein Albumin Prealbumin Triglycerides Cholesterol LDL Cholesterol Direct HDL Cholesterol 25-OH Vitamin D Total PTH Intact Urine pH Urine WBC (Auto) Urine Creatinine Urine Total Protein Fluid Total Protein Vancomycin Trough Rheumatoid Factor Complement C4 Miscellaneous Test Crossmatch 10/19/16 10/19/16 10/19/16 04:00 04:00 05:25 WBC 17.4 H RBC 2.54 L Hgb 7.7 L Hct 23.6 L MCV MCH MCHC RDW 17.3 H Plt Count Lymph % (Auto) [place] % (Auto) Lymph # [place] # Baso # Seg Neutrophils % Seg Neuts % (Manual) Lymphocytes % (Manual) Monocytes % (Manual) Eosinophils % (Manual) Basophils % (Manual) Nucleated RBC % Seg Neutrophils # Seg Neutrophils # Man Lymphocytes # (Manual) Monocytes # (Manual) Eosinophils # (Manual) Basophils # (Manual) PT INR Fibrinogen dRVVT Confirm Interp Factor V Activity POC ABG pH POC ABG pCO2 POC ABG pO2 ABG pO2 ABG HCO3 ABG Base Excess ABG Hemoglobin Oxyhemoglobin Sodium Potassium Chloride Carbon Dioxide BUN 72 H Creatinine 2.1 H Glucose 116 H POC Glucose 119 H Lactic Acid Calcium Ionized Calcium Phosphorus Magnesium Direct Bilirubin AST ALT Alkaline Phosphatase Lactate Dehydrogenase Troponin T C-Reactive Protein Total Protein Albumin Prealbumin Triglycerides Cholesterol LDL Cholesterol Direct HDL Cholesterol 25-OH Vitamin D Total PTH Intact Urine pH Urine WBC (Auto) Urine Creatinine Urine Total Protein Fluid Total Protein Vancomycin Trough Rheumatoid Factor Complement C4 Miscellaneous Test Crossmatch 10/19/16 10/19/16 10/20/16 11:46 23:59 06:00 WBC RBC Hgb Hct MCV MCH MCHC RDW Plt Count Lymph % (Auto) [place] % (Auto) Lymph # [place] # Baso # Seg Neutrophils % Seg Neuts % (Manual) Lymphocytes % (Manual) Monocytes % (Manual) Eosinophils % (Manual) Basophils % (Manual) Nucleated RBC % Seg Neutrophils # Seg Neutrophils # Man Lymphocytes # (Manual) Monocytes # (Manual) Eosinophils # (Manual) Basophils # (Manual) PT INR Fibrinogen dRVVT Confirm Interp Factor V Activity POC ABG pH POC ABG pCO2 POC ABG pO2 ABG pO2 ABG HCO3 ABG Base Excess ABG Hemoglobin Oxyhemoglobin Sodium Potassium Chloride Carbon Dioxide 17 L BUN 94 H Creatinine 2.7 H Glucose POC Glucose 116 H 117 H Lactic Acid Calcium Ionized Calcium Phosphorus Magnesium Direct Bilirubin AST ALT Alkaline Phosphatase Lactate Dehydrogenase Troponin T C-Reactive Protein Total Protein Albumin Prealbumin Triglycerides Cholesterol LDL Cholesterol Direct HDL Cholesterol 25-OH Vitamin D Total PTH Intact Urine pH Urine WBC (Auto) Urine Creatinine Urine Total Protein Fluid Total Protein Vancomycin Trough Rheumatoid Factor Complement C4 Miscellaneous Test Crossmatch 10/20/16 10/20/16 10/20/16 06:00 11:49 16:00 WBC 19.7 H RBC 2.51 L Hgb 7.7 L Hct 23.5 L MCV MCH MCHC RDW 17.5 H Plt Count Lymph % (Auto) [place] % (Auto) Lymph # [place] # Baso # Seg Neutrophils % Seg Neuts % (Manual) Lymphocytes % (Manual) Monocytes % (Manual) Eosinophils % (Manual) Basophils % (Manual) Nucleated RBC % Seg Neutrophils # Seg Neutrophils # Man Lymphocytes # (Manual) Monocytes # (Manual) Eosinophils # (Manual) Basophils # (Manual) PT INR Fibrinogen dRVVT Confirm Interp Factor V Activity POC ABG pH POC ABG pCO2 POC ABG pO2 ABG pO2 ABG HCO3 ABG Base Excess ABG Hemoglobin Oxyhemoglobin Sodium Potassium Chloride Carbon Dioxide BUN Creatinine Glucose POC Glucose 117 H Lactic Acid Calcium Ionized Calcium Phosphorus Magnesium Direct Bilirubin AST ALT Alkaline Phosphatase Lactate Dehydrogenase Troponin T C-Reactive Protein Total Protein Albumin Prealbumin Triglycerides Cholesterol LDL Cholesterol Direct HDL Cholesterol 25-OH Vitamin D Total PTH Intact Urine pH Urine WBC (Auto) Urine Creatinine Urine Total Protein Fluid Total Protein Vancomycin Trough Rheumatoid Factor Complement C4 Miscellaneous Test Flexitest 1 H Crossmatch 10/20/16 10/20/16 10/21/16 18:36 23:39 04:00 WBC RBC Hgb Hct MCV MCH MCHC RDW Plt Count Lymph % (Auto) [place] % (Auto) Lymph # [place] # Baso # Seg Neutrophils % Seg Neuts % (Manual) Lymphocytes % (Manual) Monocytes % (Manual) Eosinophils % (Manual) Basophils % (Manual) Nucleated RBC % Seg Neutrophils # Seg Neutrophils # Man Lymphocytes # (Manual) Monocytes # (Manual) Eosinophils # (Manual) Basophils # (Manual) PT INR Fibrinogen dRVVT Confirm Interp Factor V Activity POC ABG pH POC ABG pCO2 POC ABG pO2 ABG pO2 ABG HCO3 ABG Base Excess ABG Hemoglobin Oxyhemoglobin Sodium Potassium 5.4 H D Chloride Carbon Dioxide 15 L BUN 110 H Creatinine 3.0 H Glucose POC Glucose 127 H 114 H Lactic Acid Calcium Ionized Calcium Phosphorus Magnesium Direct Bilirubin AST ALT Alkaline Phosphatase Lactate Dehydrogenase Troponin T C-Reactive Protein Total Protein Albumin Prealbumin Triglycerides Cholesterol LDL Cholesterol Direct HDL Cholesterol 25-OH Vitamin D Total PTH Intact Urine pH Urine WBC (Auto) Urine Creatinine Urine Total Protein Fluid Total Protein Vancomycin Trough Rheumatoid Factor Complement C4 Miscellaneous Test Crossmatch 10/21/16 10/21/16 10/22/16 05:54 23:46 05:18 WBC RBC Hgb Hct MCV MCH MCHC RDW Plt Count Lymph % (Auto) [place] % (Auto) Lymph # [place] # Baso # Seg Neutrophils % Seg Neuts % (Manual) Lymphocytes % (Manual) Monocytes % (Manual) Eosinophils % (Manual) Basophils % (Manual) Nucleated RBC % Seg Neutrophils # Seg Neutrophils # Man Lymphocytes # (Manual) Monocytes # (Manual) Eosinophils # (Manual) Basophils # (Manual) PT INR Fibrinogen dRVVT Confirm Interp Factor V Activity POC ABG pH POC ABG pCO2 POC ABG pO2 ABG pO2 ABG HCO3 ABG Base Excess ABG Hemoglobin Oxyhemoglobin Sodium Potassium Chloride Carbon Dioxide BUN Creatinine Glucose POC Glucose 119 H 108 H 109 H Lactic Acid Calcium Ionized Calcium Phosphorus Magnesium Direct Bilirubin AST ALT Alkaline Phosphatase Lactate Dehydrogenase Troponin T C-Reactive Protein Total Protein Albumin Prealbumin Triglycerides Cholesterol LDL Cholesterol Direct HDL Cholesterol 25-OH Vitamin D Total PTH Intact Urine pH Urine WBC (Auto) Urine Creatinine Urine Total Protein Fluid Total Protein Vancomycin Trough Rheumatoid Factor Complement C4 Miscellaneous Test Crossmatch 10/22/16 10/22/16 10/22/16 06:40 06:40 06:40 WBC 14.0 H RBC 2.03 L Hgb 7.0 L Hct 20.5 L MCV 98 H MCH 34 H MCHC 35 H RDW 17.8 H Plt Count Lymph % (Auto) [place] % (Auto) 9.9 H Lymph # [place] # 1.4 H Baso # 0.2 H Seg Neutrophils % 72.0 H Seg Neuts % (Manual) Lymphocytes % (Manual) Monocytes % (Manual) Eosinophils % (Manual) Basophils % (Manual) Nucleated RBC % Seg Neutrophils # 10.0 H Seg Neutrophils # Man Lymphocytes # (Manual) Monocytes # (Manual) Eosinophils # (Manual) Basophils # (Manual) PT INR Fibrinogen dRVVT Confirm Interp Factor V Activity POC ABG pH POC ABG pCO2 POC ABG pO2 ABG pO2 ABG HCO3 ABG Base Excess ABG Hemoglobin Oxyhemoglobin Sodium 130 L D Potassium Chloride 92.4 L Carbon Dioxide 20 L BUN 50 H Creatinine 1.6 H Glucose 589 H* POC Glucose Lactic Acid Calcium 7.8 L D Ionized Calcium Phosphorus Magnesium 1.60 L Direct Bilirubin AST ALT Alkaline Phosphatase Lactate Dehydrogenase Troponin T C-Reactive Protein Total Protein Albumin Prealbumin Triglycerides Cholesterol LDL Cholesterol Direct HDL Cholesterol 25-OH Vitamin D Total PTH Intact Urine pH Urine WBC (Auto) Urine Creatinine Urine Total Protein Fluid Total Protein Vancomycin Trough Rheumatoid Factor Complement C4 Miscellaneous Test Crossmatch 10/22/16 10/22/16 10/22/16 11:39 16:44 23:36 WBC RBC Hgb Hct MCV MCH MCHC RDW Plt Count Lymph % (Auto) [place] % (Auto) Lymph # [place] # Baso # Seg Neutrophils % Seg Neuts % (Manual) Lymphocytes % (Manual) Monocytes % (Manual) Eosinophils % (Manual) Basophils % (Manual) Nucleated RBC % Seg Neutrophils # Seg Neutrophils # Man Lymphocytes # (Manual) Monocytes # (Manual) Eosinophils # (Manual) Basophils # (Manual) PT INR Fibrinogen dRVVT Confirm Interp Factor V Activity POC ABG pH POC ABG pCO2 POC ABG pO2 ABG pO2 ABG HCO3 ABG Base Excess ABG Hemoglobin Oxyhemoglobin Sodium Potassium Chloride Carbon Dioxide BUN Creatinine Glucose POC Glucose 142 H 163 H 123 H Lactic Acid Calcium Ionized Calcium Phosphorus Magnesium Direct Bilirubin AST ALT Alkaline Phosphatase Lactate Dehydrogenase Troponin T C-Reactive Protein Total Protein Albumin Prealbumin Triglycerides Cholesterol LDL Cholesterol Direct HDL Cholesterol 25-OH Vitamin D Total PTH Intact Urine pH Urine WBC (Auto) Urine Creatinine Urine Total Protein Fluid Total Protein Vancomycin Trough Rheumatoid Factor Complement C4 Miscellaneous Test Crossmatch 10/23/16 10/23/16 10/23/16 04:58 06:00 12:12 WBC RBC Hgb Hct MCV MCH MCHC RDW Plt Count Lymph % (Auto) [place] % (Auto) Lymph # [place] # Baso # Seg Neutrophils % Seg Neuts % (Manual) Lymphocytes % (Manual) Monocytes % (Manual) Eosinophils % (Manual) Basophils % (Manual) Nucleated RBC % Seg Neutrophils # Seg Neutrophils # Man Lymphocytes # (Manual) Monocytes # (Manual) Eosinophils # (Manual) Basophils # (Manual) PT INR Fibrinogen dRVVT Confirm Interp Factor V Activity POC ABG pH POC ABG pCO2 POC ABG pO2 ABG pO2 ABG HCO3 ABG Base Excess ABG Hemoglobin Oxyhemoglobin Sodium 133 L Potassium 3.5 L Chloride 96.1 L Carbon Dioxide 18 L BUN 76 H Creatinine 2.1 H Glucose POC Glucose 133 H 138 H Lactic Acid Calcium 8.3 L Ionized Calcium Phosphorus Magnesium Direct Bilirubin AST ALT Alkaline Phosphatase Lactate Dehydrogenase Troponin T C-Reactive Protein Total Protein Albumin Prealbumin Triglycerides Cholesterol LDL Cholesterol Direct HDL Cholesterol 25-OH Vitamin D Total PTH Intact Urine pH Urine WBC (Auto) Urine Creatinine Urine Total Protein Fluid Total Protein Vancomycin Trough Rheumatoid Factor Complement C4 Miscellaneous Test Crossmatch 10/23/16 10/23/16 10/24/16 16:53 23:37 04:00 WBC RBC Hgb Hct MCV MCH MCHC RDW Plt Count Lymph % (Auto) [place] % (Auto) Lymph # [place] # Baso # Seg Neutrophils % Seg Neuts % (Manual) Lymphocytes % (Manual) Monocytes % (Manual) Eosinophils % (Manual) Basophils % (Manual) Nucleated RBC % Seg Neutrophils # Seg Neutrophils # Man Lymphocytes # (Manual) Monocytes # (Manual) Eosinophils # (Manual) Basophils # (Manual) PT INR Fibrinogen dRVVT Confirm Interp Factor V Activity POC ABG pH POC ABG pCO2 POC ABG pO2 ABG pO2 ABG HCO3 ABG Base Excess ABG Hemoglobin Oxyhemoglobin Sodium 131 L Potassium Chloride 94.5 L Carbon Dioxide 19 L BUN 97 H Creatinine 2.6 H Glucose 110 H POC Glucose 125 H 123 H Lactic Acid Calcium 8.3 L Ionized Calcium Phosphorus Magnesium Direct Bilirubin AST ALT Alkaline Phosphatase Lactate Dehydrogenase Troponin T C-Reactive Protein Total Protein Albumin Prealbumin Triglycerides Cholesterol LDL Cholesterol Direct HDL Cholesterol 25-OH Vitamin D Total PTH Intact Urine pH Urine WBC (Auto) Urine Creatinine Urine Total Protein Fluid Total Protein Vancomycin Trough Rheumatoid Factor Complement C4 Miscellaneous Test Crossmatch 10/24/16 10/24/16 10/24/16 07:49 11:39 17:52 WBC RBC Hgb 6.0 L Hct 19.7 L* MCV MCH MCHC RDW Plt Count Lymph % (Auto) [place] % (Auto) Lymph # [place] # Baso # Seg Neutrophils % Seg Neuts % (Manual) Lymphocytes % (Manual) Monocytes % (Manual) Eosinophils % (Manual) Basophils % (Manual) Nucleated RBC % Seg Neutrophils # Seg Neutrophils # Man Lymphocytes # (Manual) Monocytes # (Manual) Eosinophils # (Manual) Basophils # (Manual) PT INR Fibrinogen dRVVT Confirm Interp Factor V Activity POC ABG pH POC ABG pCO2 POC ABG pO2 ABG pO2 ABG HCO3 ABG Base Excess ABG Hemoglobin Oxyhemoglobin Sodium Potassium Chloride Carbon Dioxide BUN Creatinine Glucose POC Glucose 106 H 158 H Lactic Acid Calcium Ionized Calcium Phosphorus Magnesium Direct Bilirubin AST ALT Alkaline Phosphatase Lactate Dehydrogenase Troponin T C-Reactive Protein Total Protein Albumin Prealbumin Triglycerides Cholesterol LDL Cholesterol Direct HDL Cholesterol 25-OH Vitamin D Total PTH Intact Urine pH Urine WBC (Auto) Urine Creatinine Urine Total Protein Fluid Total Protein Vancomycin Trough Rheumatoid Factor Complement C4 Miscellaneous Test Crossmatch 10/24/16 10/24/16 10/24/16 20:00 22:27 Unknown WBC RBC Hgb 9.4 L D Hct 27.5 L D MCV MCH MCHC RDW Plt Count Lymph % (Auto) [place] % (Auto) Lymph # [place] # Baso # Seg Neutrophils % Seg Neuts % (Manual) Lymphocytes % (Manual) Monocytes % (Manual) Eosinophils % (Manual) Basophils % (Manual) Nucleated RBC % Seg Neutrophils # Seg Neutrophils # Man Lymphocytes # (Manual) Monocytes # (Manual) Eosinophils # (Manual) Basophils # (Manual) PT INR Fibrinogen dRVVT Confirm Interp Factor V Activity POC ABG pH POC ABG pCO2 POC ABG pO2 ABG pO2 ABG HCO3 ABG Base Excess ABG Hemoglobin Oxyhemoglobin Sodium Potassium Chloride Carbon Dioxide BUN Creatinine Glucose POC Glucose 125 H Lactic Acid Calcium Ionized Calcium Phosphorus Magnesium Direct Bilirubin AST ALT Alkaline Phosphatase Lactate Dehydrogenase Troponin T C-Reactive Protein Total Protein Albumin Prealbumin Triglycerides Cholesterol LDL Cholesterol Direct HDL Cholesterol 25-OH Vitamin D Total PTH Intact Urine pH Urine WBC (Auto) Urine Creatinine Urine Total Protein Fluid Total Protein Vancomycin Trough Rheumatoid Factor Complement C4 Miscellaneous Test Crossmatch See Detail 10/25/16 10/25/16 10/25/16 04:00 04:00 04:00 WBC 14.2 H RBC 2.98 L Hgb 9.0 L Hct 26.2 L MCV MCH MCHC RDW 16.6 H Plt Count Lymph % (Auto) [place] % (Auto) 10.7 H Lymph # [place] # 1.5 H Baso # Seg Neutrophils % 73.6 H Seg Neuts % (Manual) Lymphocytes % (Manual) Monocytes % (Manual) Eosinophils % (Manual) Basophils % (Manual) Nucleated RBC % Seg Neutrophils # 10.5 H Seg Neutrophils # Man Lymphocytes # (Manual) Monocytes # (Manual) Eosinophils # (Manual) Basophils # (Manual) PT INR Fibrinogen dRVVT Confirm Interp Factor V Activity POC ABG pH POC ABG pCO2 POC ABG pO2 ABG pO2 ABG HCO3 ABG Base Excess ABG Hemoglobin Oxyhemoglobin Sodium 132 L Potassium Chloride 94.7 L Carbon Dioxide BUN 51 H Creatinine 1.6 H Glucose 130 H POC Glucose Lactic Acid Calcium 8.3 L Ionized Calcium Phosphorus 1.60 L D Magnesium Direct Bilirubin AST ALT Alkaline Phosphatase Lactate Dehydrogenase Troponin T C-Reactive Protein Total Protein Albumin Prealbumin Triglycerides Cholesterol LDL Cholesterol Direct HDL Cholesterol 25-OH Vitamin D Total PTH Intact Urine pH Urine WBC (Auto) Urine Creatinine Urine Total Protein Fluid Total Protein Vancomycin Trough Rheumatoid Factor Complement C4 Miscellaneous Test Crossmatch 10/25/16 10/25/16 10/25/16 04:32 11:48 17:22 WBC RBC Hgb Hct MCV MCH MCHC RDW Plt Count Lymph % (Auto) [place] % (Auto) Lymph # [place] # Baso # Seg Neutrophils % Seg Neuts % (Manual) Lymphocytes % (Manual) Monocytes % (Manual) Eosinophils % (Manual) Basophils % (Manual) Nucleated RBC % Seg Neutrophils # Seg Neutrophils # Man Lymphocytes # (Manual) Monocytes # (Manual) Eosinophils # (Manual) Basophils # (Manual) PT INR Fibrinogen dRVVT Confirm Interp Factor V Activity POC ABG pH POC ABG pCO2 POC ABG pO2 ABG pO2 ABG HCO3 ABG Base Excess ABG Hemoglobin Oxyhemoglobin Sodium Potassium Chloride Carbon Dioxide BUN Creatinine Glucose POC Glucose 124 H 171 H 120 H Lactic Acid Calcium Ionized Calcium Phosphorus Magnesium Direct Bilirubin AST ALT Alkaline Phosphatase Lactate Dehydrogenase Troponin T C-Reactive Protein Total Protein Albumin Prealbumin Triglycerides Cholesterol LDL Cholesterol Direct HDL Cholesterol 25-OH Vitamin D Total PTH Intact Urine pH Urine WBC (Auto) Urine Creatinine Urine Total Protein Fluid Total Protein Vancomycin Trough Rheumatoid Factor Complement C4 Miscellaneous Test Crossmatch 10/26/16 10/26/16 10/26/16 04:54 07:06 07:06 WBC 16.9 H RBC 3.06 L Hgb 9.1 L Hct 26.9 L MCV MCH MCHC RDW 16.9 H Plt Count Lymph % (Auto) [place] % (Auto) Lymph # [place] # Baso # Seg Neutrophils % Seg Neuts % (Manual) 71.0 H Lymphocytes % (Manual) 5.0 L Monocytes % (Manual) 12.0 H Eosinophils % (Manual) Basophils % (Manual) Nucleated RBC % Seg Neutrophils # Seg Neutrophils # Man 12.0 H Lymphocytes # (Manual) 0.8 L Monocytes # (Manual) 2.0 H Eosinophils # (Manual) Basophils # (Manual) PT INR Fibrinogen dRVVT Confirm Interp Factor V Activity POC ABG pH POC ABG pCO2 POC ABG pO2 ABG pO2 ABG HCO3 ABG Base Excess ABG Hemoglobin Oxyhemoglobin Sodium 135 L Potassium Chloride 97.1 L Carbon Dioxide BUN 73 H Creatinine 2.2 H Glucose 117 H POC Glucose 123 H Lactic Acid Calcium Ionized Calcium Phosphorus 1.70 L Magnesium Direct Bilirubin AST ALT Alkaline Phosphatase Lactate Dehydrogenase Troponin T C-Reactive Protein Total Protein Albumin Prealbumin Triglycerides Cholesterol LDL Cholesterol Direct HDL Cholesterol 25-OH Vitamin D Total PTH Intact Urine pH Urine WBC (Auto) Urine Creatinine Urine Total Protein Fluid Total Protein Vancomycin Trough Rheumatoid Factor Complement C4 Miscellaneous Test Crossmatch 10/26/16 10/26/16 10/26/16 12:12 17:29 23:42 WBC RBC Hgb Hct MCV MCH MCHC RDW Plt Count Lymph % (Auto) [place] % (Auto) Lymph # [place] # Baso # Seg Neutrophils % Seg Neuts % (Manual) Lymphocytes % (Manual) Monocytes % (Manual) Eosinophils % (Manual) Basophils % (Manual) Nucleated RBC % Seg Neutrophils # Seg Neutrophils # Man Lymphocytes # (Manual) Monocytes # (Manual) Eosinophils # (Manual) Basophils # (Manual) PT INR Fibrinogen dRVVT Confirm Interp Factor V Activity POC ABG pH POC ABG pCO2 POC ABG pO2 ABG pO2 ABG HCO3 ABG Base Excess ABG Hemoglobin Oxyhemoglobin Sodium Potassium Chloride Carbon Dioxide BUN Creatinine Glucose POC Glucose 126 H 161 H 118 H Lactic Acid Calcium Ionized Calcium Phosphorus Magnesium Direct Bilirubin AST ALT Alkaline Phosphatase Lactate Dehydrogenase Troponin T C-Reactive Protein Total Protein Albumin Prealbumin Triglycerides Cholesterol LDL Cholesterol Direct HDL Cholesterol 25-OH Vitamin D Total PTH Intact Urine pH Urine WBC (Auto) Urine Creatinine Urine Total Protein Fluid Total Protein Vancomycin Trough Rheumatoid Factor Complement C4 Miscellaneous Test Crossmatch 10/27/16 10/27/16 10/27/16 05:03 06:30 06:30 WBC 13.9 H RBC 3.09 L Hgb 9.2 L Hct 27.5 L MCV MCH MCHC RDW 17.0 H Plt Count Lymph % (Auto) [place] % (Auto) Lymph # [place] # Baso # Seg Neutrophils % Seg Neuts % (Manual) 78.0 H Lymphocytes % (Manual) Monocytes % (Manual) Eosinophils % (Manual) Basophils % (Manual) Nucleated RBC % 2.0 H Seg Neutrophils # Seg Neutrophils # Man 10.8 H Lymphocytes # (Manual) Monocytes # (Manual) 1.0 H Eosinophils # (Manual) Basophils # (Manual) PT INR Fibrinogen dRVVT Confirm Interp Factor V Activity POC ABG pH POC ABG pCO2 POC ABG pO2 ABG pO2 ABG HCO3 ABG Base Excess ABG Hemoglobin Oxyhemoglobin Sodium Potassium Chloride Carbon Dioxide BUN 40 H Creatinine 1.5 H Glucose 135 H POC Glucose 107 H Lactic Acid Calcium 8.3 L Ionized Calcium Phosphorus 1.30 L D Magnesium Direct Bilirubin AST ALT Alkaline Phosphatase Lactate Dehydrogenase Troponin T C-Reactive Protein Total Protein Albumin Prealbumin Triglycerides Cholesterol LDL Cholesterol Direct HDL Cholesterol 25-OH Vitamin D Total PTH Intact Urine pH Urine WBC (Auto) Urine Creatinine Urine Total Protein Fluid Total Protein Vancomycin Trough Rheumatoid Factor Complement C4 Miscellaneous Test Crossmatch 10/27/16 10/27/16 10/27/16 13:27 18:07 23:40 WBC RBC Hgb Hct MCV MCH MCHC RDW Plt Count Lymph % (Auto) [place] % (Auto) Lymph # [place] # Baso # Seg Neutrophils % Seg Neuts % (Manual) Lymphocytes % (Manual) Monocytes % (Manual) Eosinophils % (Manual) Basophils % (Manual) Nucleated RBC % Seg Neutrophils # Seg Neutrophils # Man Lymphocytes # (Manual) Monocytes # (Manual) Eosinophils # (Manual) Basophils # (Manual) PT INR Fibrinogen dRVVT Confirm Interp Factor V Activity POC ABG pH POC ABG pCO2 POC ABG pO2 ABG pO2 ABG HCO3 ABG Base Excess ABG Hemoglobin Oxyhemoglobin Sodium Potassium Chloride Carbon Dioxide BUN Creatinine Glucose POC Glucose 117 H 121 H 118 H Lactic Acid Calcium Ionized Calcium Phosphorus Magnesium Direct Bilirubin AST ALT Alkaline Phosphatase Lactate Dehydrogenase Troponin T C-Reactive Protein Total Protein Albumin Prealbumin Triglycerides Cholesterol LDL Cholesterol Direct HDL Cholesterol 25-OH Vitamin D Total PTH Intact Urine pH Urine WBC (Auto) Urine Creatinine Urine Total Protein Fluid Total Protein Vancomycin Trough Rheumatoid Factor Complement C4 Miscellaneous Test Crossmatch 10/28/16 10/28/16 10/28/16 05:48 06:45 06:45 WBC 14.7 H RBC 3.05 L Hgb 9.0 L Hct 26.9 L MCV MCH MCHC RDW 16.8 H Plt Count Lymph % (Auto) 8.[address] [place] % (Auto) 8.4 H Lymph # [place] # 1.2 H Baso # Seg Neutrophils % 81.9 H Seg Neuts % (Manual) Lymphocytes % (Manual) Monocytes % (Manual) Eosinophils % (Manual) Basophils % (Manual) Nucleated RBC % Seg Neutrophils # 12.1 H Seg Neutrophils # Man Lymphocytes # (Manual) Monocytes # (Manual) Eosinophils # (Manual) Basophils # (Manual) PT INR Fibrinogen dRVVT Confirm Interp Factor V Activity POC ABG pH POC ABG pCO2 POC ABG pO2 ABG pO2 ABG HCO3 ABG Base Excess ABG Hemoglobin Oxyhemoglobin Sodium Potassium Chloride Carbon Dioxide BUN 60 H Creatinine 1.9 H Glucose 120 H POC Glucose 114 H Lactic Acid Calcium Ionized Calcium Phosphorus Magnesium Direct Bilirubin AST ALT Alkaline Phosphatase Lactate Dehydrogenase Troponin T C-Reactive Protein Total Protein Albumin Prealbumin Triglycerides Cholesterol LDL Cholesterol Direct HDL Cholesterol 25-OH Vitamin D Total PTH Intact Urine pH Urine WBC (Auto) Urine Creatinine Urine Total Protein Fluid Total Protein Vancomycin Trough Rheumatoid Factor Complement C4 Miscellaneous Test Crossmatch 10/28/16 10/28/16 10/29/16 17:08 23:50 05:10 WBC RBC Hgb Hct MCV MCH MCHC RDW Plt Count Lymph % (Auto) [place] % (Auto) Lymph # [place] # Baso # Seg Neutrophils % Seg Neuts % (Manual) Lymphocytes % (Manual) Monocytes % (Manual) Eosinophils % (Manual) Basophils % (Manual) Nucleated RBC % Seg Neutrophils # Seg Neutrophils # Man Lymphocytes # (Manual) Monocytes # (Manual) Eosinophils # (Manual) Basophils # (Manual) PT INR Fibrinogen dRVVT Confirm Interp Factor V Activity POC ABG pH POC ABG pCO2 POC ABG pO2 ABG pO2 ABG HCO3 ABG Base Excess ABG Hemoglobin Oxyhemoglobin Sodium Potassium Chloride Carbon Dioxide BUN Creatinine Glucose POC Glucose 109 H 110 H 124 H Lactic Acid Calcium Ionized Calcium Phosphorus Magnesium Direct Bilirubin AST ALT Alkaline Phosphatase Lactate Dehydrogenase Troponin T C-Reactive Protein Total Protein Albumin Prealbumin Triglycerides Cholesterol LDL Cholesterol Direct HDL Cholesterol 25-OH Vitamin D Total PTH Intact Urine pH Urine WBC (Auto) Urine Creatinine Urine Total Protein Fluid Total Protein Vancomycin Trough Rheumatoid Factor Complement C4 Miscellaneous Test Crossmatch 10/29/16 10/29/16 10/29/16 07:45 07:45 12:19 WBC 14.7 H RBC 3.15 L Hgb 9.3 L Hct 28.9 L MCV MCH MCHC RDW 17.0 H Plt Count Lymph % (Auto) 11.[address] [place] % (Auto) 8.6 H Lymph # [place] # 1.3 H Baso # Seg Neutrophils % 78.1 H Seg Neuts % (Manual) Lymphocytes % (Manual) Monocytes % (Manual) Eosinophils % (Manual) Basophils % (Manual) Nucleated RBC % Seg Neutrophils # 11.4 H Seg Neutrophils # Man Lymphocytes # (Manual) Monocytes # (Manual) Eosinophils # (Manual) Basophils # (Manual) PT INR Fibrinogen dRVVT Confirm Interp Factor V Activity POC ABG pH POC ABG pCO2 POC ABG pO2 ABG pO2 ABG HCO3 ABG Base Excess ABG Hemoglobin Oxyhemoglobin Sodium Potassium 5.1 H Chloride Carbon Dioxide 19 L BUN 78 H Creatinine 2.2 H Glucose 116 H POC Glucose 118 H Lactic Acid Calcium Ionized Calcium Phosphorus Magnesium Direct Bilirubin AST ALT Alkaline Phosphatase Lactate Dehydrogenase Troponin T C-Reactive Protein Total Protein Albumin Prealbumin Triglycerides Cholesterol LDL Cholesterol Direct HDL Cholesterol 25-OH Vitamin D Total PTH Intact Urine pH Urine WBC (Auto) Urine Creatinine Urine Total Protein Fluid Total Protein Vancomycin Trough Rheumatoid Factor Complement C4 Miscellaneous Test Crossmatch 10/29/16 10/30/16 10/30/16 17:49 01:52 03:28 WBC RBC Hgb Hct MCV MCH MCHC RDW Plt Count Lymph % (Auto) [place] % (Auto) Lymph # [place] # Baso # Seg Neutrophils % Seg Neuts % (Manual) Lymphocytes % (Manual) Monocytes % (Manual) Eosinophils % (Manual) Basophils % (Manual) Nucleated RBC % Seg Neutrophils # Seg Neutrophils # Man Lymphocytes # (Manual) Monocytes # (Manual) Eosinophils # (Manual) Basophils # (Manual) PT INR Fibrinogen dRVVT Confirm Interp Factor V Activity POC ABG pH POC ABG pCO2 POC ABG pO2 ABG pO2 ABG HCO3 ABG Base Excess ABG Hemoglobin Oxyhemoglobin Sodium Potassium 5.4 H Chloride 97.5 L Carbon Dioxide 19 L BUN 90 H Creatinine 2.5 H Glucose POC Glucose 120 H 129 H Lactic Acid Calcium Ionized Calcium Phosphorus 5.20 H Magnesium Direct Bilirubin AST ALT Alkaline Phosphatase Lactate Dehydrogenase Troponin T C-Reactive Protein Total Protein Albumin Prealbumin Triglycerides Cholesterol LDL Cholesterol Direct HDL Cholesterol 25-OH Vitamin D Total PTH Intact Urine pH Urine WBC (Auto) Urine Creatinine Urine Total Protein Fluid Total Protein Vancomycin Trough Rheumatoid Factor Complement C4 Miscellaneous Test Crossmatch 10/30/16 10/30/16 10/30/16 03:28 08:19 08:19 WBC 11.6 H 15.9 H RBC 2.75 L 2.82 L Hgb 7.9 L 8.3 L Hct 24.2 L 25.2 L MCV MCH MCHC RDW 16.7 H 17.2 H Plt Count Lymph % (Auto) [place] % (Auto) 9.8 H Lymph # [facility] # 1.1 H Baso # Seg Neutrophils % 74.2 H Seg Neuts % (Manual) Lymphocytes % (Manual) Monocytes % (Manual) Eosinophils % (Manual) Basophils % (Manual) Nucleated RBC % Seg Neutrophils # 8.6 H Seg Neutrophils # Man Lymphocytes # (Manual) Monocytes # (Manual) Eosinophils # (Manual) Basophils # (Manual) PT INR Fibrinogen dRVVT Confirm Interp Factor V Activity POC ABG pH POC ABG pCO2 POC ABG pO2 ABG pO2 ABG HCO3 ABG Base Excess ABG Hemoglobin Oxyhemoglobin Sodium Potassium 5.3 H Chloride 97.4 L Carbon Dioxide 19 L BUN 93 H Creatinine 2.6 H Glucose POC Glucose Lactic Acid Calcium Ionized Calcium Phosphorus Magnesium Direct Bilirubin AST ALT Alkaline Phosphatase Lactate Dehydrogenase Troponin T C-Reactive Protein Total Protein Albumin Prealbumin Triglycerides Cholesterol LDL Cholesterol Direct HDL Cholesterol 25-OH Vitamin D Total PTH Intact Urine pH Urine WBC (Auto) Urine Creatinine Urine Total Protein Fluid Total Protein Vancomycin Trough Rheumatoid Factor Complement C4 Miscellaneous Test Crossmatch 10/30/16 10/30/16 10/31/16 17:11 23:56 00:40 WBC RBC Hgb Hct MCV MCH MCHC RDW Plt Count Lymph % (Auto) [place] % (Auto) Lymph # [place] # Baso # Seg Neutrophils % Seg Neuts % (Manual) Lymphocytes % (Manual) Monocytes % (Manual) Eosinophils % (Manual) Basophils % (Manual) Nucleated RBC % Seg Neutrophils # Seg Neutrophils # Man Lymphocytes # (Manual) Monocytes # (Manual) Eosinophils # (Manual) Basophils # (Manual) PT INR Fibrinogen dRVVT Confirm Interp Factor V Activity POC ABG pH POC ABG pCO2 POC ABG pO2 ABG pO2 ABG HCO3 ABG Base Excess ABG Hemoglobin Oxyhemoglobin Sodium Potassium Chloride Carbon Dioxide BUN Creatinine Glucose POC Glucose 106 H 117 H 120 H Lactic Acid Calcium Ionized Calcium Phosphorus Magnesium Direct Bilirubin AST ALT Alkaline Phosphatase Lactate Dehydrogenase Troponin T C-Reactive Protein Total Protein Albumin Prealbumin Triglycerides Cholesterol LDL Cholesterol Direct HDL Cholesterol 25-OH Vitamin D Total PTH Intact Urine pH Urine WBC (Auto) Urine Creatinine Urine Total Protein Fluid Total Protein Vancomycin Trough Rheumatoid Factor Complement C4 Miscellaneous Test Crossmatch 10/31/16 10/31/16 10/31/16 05:43 07:15 07:15 WBC 12.1 H RBC 2.63 L Hgb 7.7 L Hct 23.3 L MCV MCH MCHC RDW 16.7 H Plt Count Lymph % (Auto) 11.[address] [place] % (Auto) 7.7 H Lymph # [place] # 0.9 H Baso # Seg Neutrophils % 78.0 H Seg Neuts % (Manual) Lymphocytes % (Manual) Monocytes % (Manual) Eosinophils % (Manual) Basophils % (Manual) Nucleated RBC % Seg Neutrophils # 9.4 H Seg Neutrophils # Man Lymphocytes # (Manual) Monocytes # (Manual) Eosinophils # (Manual) Basophils # (Manual) PT INR Fibrinogen dRVVT Confirm Interp Factor V Activity POC ABG pH POC ABG pCO2 POC ABG pO2 ABG pO2 ABG HCO3 ABG Base Excess ABG Hemoglobin Oxyhemoglobin Sodium Potassium Chloride 96.4 L Carbon Dioxide 21 L BUN 99 H Creatinine 2.6 H Glucose 144 H POC Glucose 125 H Lactic Acid Calcium Ionized Calcium Phosphorus 4.80 H Magnesium Direct Bilirubin AST ALT Alkaline Phosphatase Lactate Dehydrogenase Troponin T C-Reactive Protein Total Protein Albumin Prealbumin Triglycerides Cholesterol LDL Cholesterol Direct HDL Cholesterol 25-OH Vitamin D Total PTH Intact Urine pH Urine WBC (Auto) Urine Creatinine Urine Total Protein Fluid Total Protein Vancomycin Trough Rheumatoid Factor Complement C4 Miscellaneous Test Crossmatch 10/31/16 10/31/16 11/01/16 11:46 18:34 00:20 WBC RBC Hgb Hct MCV MCH MCHC RDW Plt Count Lymph % (Auto) [place] % (Auto) Lymph # [place] # Baso # Seg Neutrophils % Seg Neuts % (Manual) Lymphocytes % (Manual) Monocytes % (Manual) Eosinophils % (Manual) Basophils % (Manual) Nucleated RBC % Seg Neutrophils # Seg Neutrophils # Man Lymphocytes # (Manual) Monocytes # (Manual) Eosinophils # (Manual) Basophils # (Manual) PT INR Fibrinogen dRVVT Confirm Interp Factor V Activity POC ABG pH POC ABG pCO2 POC ABG pO2 ABG pO2 ABG HCO3 ABG Base Excess ABG Hemoglobin Oxyhemoglobin Sodium Potassium Chloride Carbon Dioxide BUN Creatinine Glucose POC Glucose 159 H 140 H 132 H Lactic Acid Calcium Ionized Calcium Phosphorus Magnesium Direct Bilirubin AST ALT Alkaline Phosphatase Lactate Dehydrogenase Troponin T C-Reactive Protein Total Protein Albumin Prealbumin Triglycerides Cholesterol LDL Cholesterol Direct HDL Cholesterol 25-OH Vitamin D Total PTH Intact Urine pH Urine WBC (Auto) Urine Creatinine Urine Total Protein Fluid Total Protein Vancomycin Trough Rheumatoid Factor Complement C4 Miscellaneous Test Crossmatch 11/01/16 11/01/16 11/01/16 04:55 04:55 06:11 WBC 11.2 H RBC 2.68 L Hgb 7.5 L Hct 23.7 L MCV MCH MCHC RDW 16.1 H Plt Count Lymph % (Auto) [place] % (Auto) 9.8 H Lymph # [facility] # 1.1 H Baso # Seg Neutrophils % 70.8 H Seg Neuts % (Manual) Lymphocytes % (Manual) Monocytes % (Manual) Eosinophils % (Manual) Basophils % (Manual) Nucleated RBC % Seg Neutrophils # 7.9 H Seg Neutrophils # Man Lymphocytes # (Manual) Monocytes # (Manual) Eosinophils # (Manual) Basophils # (Manual) PT INR Fibrinogen dRVVT Confirm Interp Factor V Activity POC ABG pH POC ABG pCO2 POC ABG pO2 ABG pO2 ABG HCO3 ABG Base Excess ABG Hemoglobin Oxyhemoglobin Sodium Potassium 3.3 L D Chloride Carbon Dioxide BUN 61 H Creatinine 1.9 H Glucose 114 H POC Glucose 115 H Lactic Acid Calcium Ionized Calcium Phosphorus 1.80 L D Magnesium Direct Bilirubin AST ALT Alkaline Phosphatase Lactate Dehydrogenase Troponin T C-Reactive Protein Total Protein Albumin Prealbumin Triglycerides Cholesterol LDL Cholesterol Direct HDL Cholesterol 25-OH Vitamin D Total PTH Intact Urine pH Urine WBC (Auto) Urine Creatinine Urine Total Protein Fluid Total Protein Vancomycin Trough Rheumatoid Factor Complement C4 Miscellaneous Test Crossmatch 11/01/16 11/01/16 11/01/16 12:29 18:23 23:58 WBC RBC Hgb Hct MCV MCH MCHC RDW Plt Count Lymph % (Auto) [place] % (Auto) Lymph # [place] # Baso # Seg Neutrophils % Seg Neuts % (Manual) Lymphocytes % (Manual) Monocytes % (Manual) Eosinophils % (Manual) Basophils % (Manual) Nucleated RBC % Seg Neutrophils # Seg Neutrophils # Man Lymphocytes # (Manual) Monocytes # (Manual) Eosinophils # (Manual) Basophils # (Manual) PT INR Fibrinogen dRVVT Confirm Interp Factor V Activity POC ABG pH POC ABG pCO2 POC ABG pO2 ABG pO2 ABG HCO3 ABG Base Excess ABG Hemoglobin Oxyhemoglobin Sodium Potassium Chloride Carbon Dioxide BUN Creatinine Glucose POC Glucose 142 H 143 H 128 H Lactic Acid Calcium Ionized Calcium Phosphorus Magnesium Direct Bilirubin AST ALT Alkaline Phosphatase Lactate Dehydrogenase Troponin T C-Reactive Protein Total Protein Albumin Prealbumin Triglycerides Cholesterol LDL Cholesterol Direct HDL Cholesterol 25-OH Vitamin D Total PTH Intact Urine pH Urine WBC (Auto) Urine Creatinine Urine Total Protein Fluid Total Protein Vancomycin Trough Rheumatoid Factor Complement C4 Miscellaneous Test Crossmatch 11/02/16 11/02/16 11/02/16 04:16 05:29 11:58 WBC RBC Hgb Hct MCV MCH MCHC RDW Plt Count Lymph % (Auto) [place] % (Auto) Lymph # [place] # Baso # Seg Neutrophils % Seg Neuts % (Manual) Lymphocytes % (Manual) Monocytes % (Manual) Eosinophils % (Manual) Basophils % (Manual) Nucleated RBC % Seg Neutrophils # Seg Neutrophils # Man Lymphocytes # (Manual) Monocytes # (Manual) Eosinophils # (Manual) Basophils # (Manual) PT INR Fibrinogen dRVVT Confirm Interp Factor V Activity POC ABG pH POC ABG pCO2 POC ABG pO2 ABG pO2 ABG HCO3 ABG Base Excess ABG Hemoglobin Oxyhemoglobin Sodium Potassium 3.1 L Chloride Carbon Dioxide BUN 73 H Creatinine 2.3 H Glucose 112 H POC Glucose 135 H 149 H Lactic Acid Calcium Ionized Calcium Phosphorus Magnesium Direct Bilirubin AST ALT Alkaline Phosphatase Lactate Dehydrogenase Troponin T C-Reactive Protein Total Protein Albumin Prealbumin Triglycerides Cholesterol LDL Cholesterol Direct HDL Cholesterol 25-OH Vitamin D Total PTH Intact Urine pH Urine WBC (Auto) Urine Creatinine Urine Total Protein Fluid Total Protein Vancomycin Trough Rheumatoid Factor Complement C4 Miscellaneous Test Crossmatch 11/02/16 11/02/16 11/03/16 17:42 22:54 06:00 WBC RBC Hgb Hct MCV MCH MCHC RDW Plt Count Lymph % (Auto) [place] % (Auto) Lymph # [place] # Baso # Seg Neutrophils % Seg Neuts % (Manual) Lymphocytes % (Manual) Monocytes % (Manual) Eosinophils % (Manual) Basophils % (Manual) Nucleated RBC % Seg Neutrophils # Seg Neutrophils # Man Lymphocytes # (Manual) Monocytes # (Manual) Eosinophils # (Manual) Basophils # (Manual) PT INR Fibrinogen dRVVT Confirm Interp Factor V Activity POC ABG pH POC ABG pCO2 POC ABG pO2 ABG pO2 ABG HCO3 ABG Base Excess ABG Hemoglobin Oxyhemoglobin Sodium Potassium Chloride 96.7 L Carbon Dioxide BUN 41 H Creatinine 1.5 H Glucose 145 H POC Glucose 182 H 115 H Lactic Acid Calcium Ionized Calcium Phosphorus 1.60 L D Magnesium 1.50 L Direct Bilirubin AST ALT Alkaline Phosphatase Lactate Dehydrogenase Troponin T C-Reactive Protein Total Protein Albumin Prealbumin Triglycerides Cholesterol LDL Cholesterol Direct HDL Cholesterol 25-OH Vitamin D Total PTH Intact Urine pH Urine WBC (Auto) Urine Creatinine Urine Total Protein Fluid Total Protein Vancomycin Trough Rheumatoid Factor Complement C4 Miscellaneous Test Crossmatch 11/03/16 11/03/16 11/03/16 11:53 17:45 23:37 WBC RBC Hgb Hct MCV MCH MCHC RDW Plt Count Lymph % (Auto) [place] % (Auto) Lymph # [place] # Baso # Seg Neutrophils % Seg Neuts % (Manual) Lymphocytes % (Manual) Monocytes % (Manual) Eosinophils % (Manual) Basophils % (Manual) Nucleated RBC % Seg Neutrophils # Seg Neutrophils # Man Lymphocytes # (Manual) Monocytes # (Manual) Eosinophils # (Manual) Basophils # (Manual) PT INR Fibrinogen dRVVT Confirm Interp Factor V Activity POC ABG pH POC ABG pCO2 POC ABG pO2 ABG pO2 ABG HCO3 ABG Base Excess ABG Hemoglobin Oxyhemoglobin Sodium Potassium Chloride Carbon Dioxide BUN Creatinine Glucose POC Glucose 131 H 134 H 113 H Lactic Acid Calcium Ionized Calcium Phosphorus Magnesium Direct Bilirubin AST ALT Alkaline Phosphatase Lactate Dehydrogenase Troponin T C-Reactive Protein Total Protein Albumin Prealbumin Triglycerides Cholesterol LDL Cholesterol Direct HDL Cholesterol 25-OH Vitamin D Total PTH Intact Urine pH Urine WBC (Auto) Urine Creatinine Urine Total Protein Fluid Total Protein Vancomycin Trough Rheumatoid Factor Complement C4 Miscellaneous Test Crossmatch 11/04/16 11/04/16 11/04/16 05:41 06:00 12:10 WBC RBC Hgb Hct MCV MCH MCHC RDW Plt Count Lymph % (Auto) [place] % (Auto) Lymph # [place] # Baso # Seg Neutrophils % Seg Neuts % (Manual) Lymphocytes % (Manual) Monocytes % (Manual) Eosinophils % (Manual) Basophils % (Manual) Nucleated RBC % Seg Neutrophils # Seg Neutrophils # Man Lymphocytes # (Manual) Monocytes # (Manual) Eosinophils # (Manual) Basophils # (Manual) PT INR Fibrinogen dRVVT Confirm Interp Factor V Activity POC ABG pH POC ABG pCO2 POC ABG pO2 ABG pO2 ABG HCO3 ABG Base Excess ABG Hemoglobin Oxyhemoglobin Sodium Potassium Chloride 96.7 L Carbon Dioxide BUN 52 H Creatinine 1.9 H Glucose 126 H POC Glucose 137 H 191 H Lactic Acid Calcium Ionized Calcium Phosphorus Magnesium Direct Bilirubin AST ALT Alkaline Phosphatase Lactate Dehydrogenase Troponin T C-Reactive Protein Total Protein Albumin Prealbumin Triglycerides Cholesterol LDL Cholesterol Direct HDL Cholesterol 25-OH Vitamin D Total PTH Intact Urine pH Urine WBC (Auto) Urine Creatinine Urine Total Protein Fluid Total Protein Vancomycin Trough Rheumatoid Factor Complement C4 Miscellaneous Test Crossmatch 11/04/16 11/05/16 11/05/16 22:57 03:10 05:10 WBC RBC Hgb Hct MCV MCH MCHC RDW Plt Count Lymph % (Auto) [place] % (Auto) Lymph # [place] # Baso # Seg Neutrophils % Seg Neuts % (Manual) Lymphocytes % (Manual) Monocytes % (Manual) Eosinophils % (Manual) Basophils % (Manual) Nucleated RBC % Seg Neutrophils # Seg Neutrophils # Man Lymphocytes # (Manual) Monocytes # (Manual) Eosinophils # (Manual) Basophils # (Manual) PT INR Fibrinogen dRVVT Confirm Interp Factor V Activity POC ABG pH POC ABG pCO2 POC ABG pO2 ABG pO2 ABG HCO3 ABG Base Excess ABG Hemoglobin Oxyhemoglobin Sodium 136 L Potassium Chloride 97.2 L Carbon Dioxide BUN 32 H Creatinine 1.3 H Glucose 123 H POC Glucose 125 H 108 H Lactic Acid Calcium 7.8 L Ionized Calcium Phosphorus Magnesium Direct Bilirubin AST ALT Alkaline Phosphatase Lactate Dehydrogenase Troponin T C-Reactive Protein Total Protein Albumin Prealbumin Triglycerides Cholesterol LDL Cholesterol Direct HDL Cholesterol 25-OH Vitamin D Total PTH Intact Urine pH Urine WBC (Auto) Urine Creatinine Urine Total Protein Fluid Total Protein Vancomycin Trough Rheumatoid Factor Complement C4 Miscellaneous Test Crossmatch 11/05/16 11/05/16 11/05/16 12:23 13:09 13:25 WBC RBC Hgb Hct MCV MCH MCHC RDW Plt Count Lymph % (Auto) [place] % (Auto) Lymph # [place] # Baso # Seg Neutrophils % Seg Neuts % (Manual) Lymphocytes % (Manual) Monocytes % (Manual) Eosinophils % (Manual) Basophils % (Manual) Nucleated RBC % Seg Neutrophils # Seg Neutrophils # Man Lymphocytes # (Manual) Monocytes # (Manual) Eosinophils # (Manual) Basophils # (Manual) PT INR Fibrinogen dRVVT Confirm Interp Factor V Activity POC ABG pH POC ABG pCO2 POC ABG pO2 ABG pO2 ABG HCO3 ABG Base Excess ABG Hemoglobin Oxyhemoglobin Sodium Potassium Chloride Carbon Dioxide BUN Creatinine Glucose POC Glucose 124 H Lactic Acid Calcium Ionized Calcium Phosphorus Magnesium Direct Bilirubin AST ALT Alkaline Phosphatase Lactate Dehydrogenase Troponin T C-Reactive Protein 11.40 H Total Protein Albumin Prealbumin Triglycerides Cholesterol LDL Cholesterol Direct HDL Cholesterol 25-OH Vitamin D Total PTH Intact Urine pH 9.0 H Urine WBC (Auto) Urine Creatinine Urine Total Protein Fluid Total Protein Vancomycin Trough Rheumatoid Factor Complement C4 Miscellaneous Test Crossmatch 11/05/16 11/05/16 11/05/16 13:25 17:54 23:42 WBC RBC Hgb Hct MCV MCH MCHC RDW Plt Count Lymph % (Auto) [place] % (Auto) Lymph # [place] # Baso # Seg Neutrophils % Seg Neuts % (Manual) Lymphocytes % (Manual) Monocytes % (Manual) Eosinophils % (Manual) Basophils % (Manual) Nucleated RBC % Seg Neutrophils # Seg Neutrophils # Man Lymphocytes # (Manual) Monocytes # (Manual) Eosinophils # (Manual) Basophils # (Manual) PT INR Fibrinogen dRVVT Confirm Interp Factor V Activity POC ABG pH POC ABG pCO2 POC ABG pO2 ABG pO2 ABG HCO3 ABG Base Excess ABG Hemoglobin Oxyhemoglobin Sodium Potassium Chloride Carbon Dioxide BUN Creatinine Glucose POC Glucose 114 H 134 H Lactic Acid Calcium Ionized Calcium Phosphorus Magnesium Direct Bilirubin AST ALT Alkaline Phosphatase Lactate Dehydrogenase Troponin T C-Reactive Protein Total Protein Albumin Prealbumin Triglycerides Cholesterol LDL Cholesterol Direct HDL Cholesterol 25-OH Vitamin D Total PTH Intact Urine pH Urine WBC (Auto) Urine Creatinine Urine Total Protein Fluid Total Protein Vancomycin Trough Rheumatoid Factor Complement C4 Miscellaneous Test Flexitest 1 H Crossmatch 11/06/16 11/06/16 11/06/16 04:56 06:25 06:25 WBC RBC 2.50 L Hgb 7.3 L Hct 22.5 L MCV MCH MCHC RDW 16.9 H Plt Count Lymph % (Auto) [place] % (Auto) 10.5 H Lymph # [place] # 1.1 H Baso # Seg Neutrophils % Seg Neuts % (Manual) Lymphocytes % (Manual) Monocytes % (Manual) Eosinophils % (Manual) Basophils % (Manual) Nucleated RBC % Seg Neutrophils # Seg Neutrophils # Man Lymphocytes # (Manual) Monocytes # (Manual) Eosinophils # (Manual) Basophils # (Manual) PT INR Fibrinogen dRVVT Confirm Interp Factor V Activity POC ABG pH POC ABG pCO2 POC ABG pO2 ABG pO2 ABG HCO3 ABG Base Excess ABG Hemoglobin Oxyhemoglobin Sodium Potassium 5.1 H Chloride 95.9 L Carbon Dioxide BUN 52 H Creatinine 1.8 H Glucose 117 H POC Glucose 120 H Lactic Acid Calcium Ionized Calcium Phosphorus Magnesium Direct Bilirubin AST 103 H ALT 77 H Alkaline Phosphatase 285 H Lactate Dehydrogenase Troponin T C-Reactive Protein Total Protein 6.2 L Albumin 1.8 L Prealbumin 0.180 L Triglycerides Cholesterol LDL Cholesterol Direct HDL Cholesterol 25-OH Vitamin D Total PTH Intact Urine pH Urine WBC (Auto) Urine Creatinine Urine Total Protein Fluid Total Protein Vancomycin Trough Rheumatoid Factor Complement C4 Miscellaneous Test Crossmatch 11/06/16 11/06/16 11/06/16 11:56 17:14 23:52 WBC RBC Hgb Hct MCV MCH MCHC RDW Plt Count Lymph % (Auto) [place] % (Auto) Lymph # [place] # Baso # Seg Neutrophils % Seg Neuts % (Manual) Lymphocytes % (Manual) Monocytes % (Manual) Eosinophils % (Manual) Basophils % (Manual) Nucleated RBC % Seg Neutrophils # Seg Neutrophils # Man Lymphocytes # (Manual) Monocytes # (Manual) Eosinophils # (Manual) Basophils # (Manual) PT INR Fibrinogen dRVVT Confirm Interp Factor V Activity POC ABG pH POC ABG pCO2 POC ABG pO2 ABG pO2 ABG HCO3 ABG Base Excess ABG Hemoglobin Oxyhemoglobin Sodium Potassium Chloride Carbon Dioxide BUN Creatinine Glucose POC Glucose 141 H 125 H 130 H Lactic Acid Calcium Ionized Calcium Phosphorus Magnesium Direct Bilirubin AST ALT Alkaline Phosphatase Lactate Dehydrogenase Troponin T C-Reactive Protein Total Protein Albumin Prealbumin Triglycerides Cholesterol LDL Cholesterol Direct HDL Cholesterol 25-OH Vitamin D Total PTH Intact Urine pH Urine WBC (Auto) Urine Creatinine Urine Total Protein Fluid Total Protein Vancomycin Trough Rheumatoid Factor Complement C4 Miscellaneous Test Crossmatch 11/07/16 11/07/16 11/07/16 06:30 06:30 09:37 WBC RBC 2.18 L Hgb 6.3 L Hct 19.7 L* MCV MCH MCHC RDW 16.8 H Plt Count Lymph % (Auto) [place] % (Auto) 10.0 H Lymph # [place] # 1.0 H Baso # Seg Neutrophils % Seg Neuts % (Manual) Lymphocytes % (Manual) Monocytes % (Manual) Eosinophils % (Manual) Basophils % (Manual) Nucleated RBC % Seg Neutrophils # Seg Neutrophils # Man Lymphocytes # (Manual) Monocytes # (Manual) Eosinophils # (Manual) Basophils # (Manual) PT INR Fibrinogen dRVVT Confirm Interp Factor V Activity POC ABG pH POC ABG pCO2 POC ABG pO2 ABG pO2 ABG HCO3 ABG Base Excess ABG Hemoglobin Oxyhemoglobin Sodium 135 L Potassium Chloride 95.6 L Carbon Dioxide BUN 70 H Creatinine 2.0 H Glucose 126 H POC Glucose Lactic Acid Calcium Ionized Calcium Phosphorus Magnesium Direct Bilirubin AST ALT Alkaline Phosphatase Lactate Dehydrogenase Troponin T C-Reactive Protein Total Protein Albumin Prealbumin Triglycerides Cholesterol LDL Cholesterol Direct HDL Cholesterol 25-OH Vitamin D Total PTH Intact Urine pH Urine WBC (Auto) Urine Creatinine Urine Total Protein Fluid Total Protein Vancomycin Trough Rheumatoid Factor Complement C4 Miscellaneous Test Crossmatch See Detail 11/07/16 11/07/16 11/07/16 12:52 18:51 21:26 WBC RBC Hgb Hct MCV MCH MCHC RDW Plt Count Lymph % (Auto) [place] % (Auto) Lymph # [place] # Baso # Seg Neutrophils % Seg Neuts % (Manual) Lymphocytes % (Manual) Monocytes % (Manual) Eosinophils % (Manual) Basophils % (Manual) Nucleated RBC % Seg Neutrophils # Seg Neutrophils # Man Lymphocytes # (Manual) Monocytes # (Manual) Eosinophils # (Manual) Basophils # (Manual) PT INR Fibrinogen dRVVT Confirm Interp Factor V Activity POC ABG pH 7.523 H POC ABG pCO2 34.6 L POC ABG pO2 53 L ABG pO2 ABG HCO3 ABG Base Excess ABG Hemoglobin Oxyhemoglobin Sodium Potassium Chloride Carbon Dioxide BUN Creatinine Glucose POC Glucose 142 H 155 H Lactic Acid Calcium Ionized Calcium Phosphorus Magnesium Direct Bilirubin AST ALT Alkaline Phosphatase Lactate Dehydrogenase Troponin T C-Reactive Protein Total Protein Albumin Prealbumin Triglycerides Cholesterol LDL Cholesterol Direct HDL Cholesterol 25-OH Vitamin D Total PTH Intact Urine pH Urine WBC (Auto) Urine Creatinine Urine Total Protein Fluid Total Protein Vancomycin Trough Rheumatoid Factor Complement C4 Miscellaneous Test Crossmatch 11/07/16 11/08/16 11/08/16 21:34 13:03 23:37 WBC RBC 2.63 L Hgb 7.7 L Hct 22.7 L MCV MCH MCHC RDW 17.0 H Plt Count Lymph % (Auto) [place] % (Auto) Lymph # [place] # Baso # Seg Neutrophils % Seg Neuts % (Manual) Lymphocytes % (Manual) Monocytes % (Manual) Eosinophils % (Manual) Basophils % (Manual) Nucleated RBC % Seg Neutrophils # Seg Neutrophils # Man Lymphocytes # (Manual) Monocytes # (Manual) Eosinophils # (Manual) Basophils # (Manual) PT INR Fibrinogen dRVVT Confirm Interp Factor V Activity POC ABG pH 7.478 H POC ABG pCO2 34.0 L POC ABG pO2 50 L ABG pO2 ABG HCO3 ABG Base Excess ABG Hemoglobin Oxyhemoglobin Sodium Potassium Chloride Carbon Dioxide BUN Creatinine Glucose POC Glucose 113 H Lactic Acid Calcium Ionized Calcium Phosphorus Magnesium Direct Bilirubin AST ALT Alkaline Phosphatase Lactate Dehydrogenase Troponin T C-Reactive Protein Total Protein Albumin Prealbumin Triglycerides Cholesterol LDL Cholesterol Direct HDL Cholesterol 25-OH Vitamin D Total PTH Intact Urine pH Urine WBC (Auto) Urine Creatinine Urine Total Protein Fluid Total Protein Vancomycin Trough Rheumatoid Factor Complement C4 Miscellaneous Test Crossmatch 11/09/16 11/09/16 11/09/16 04:35 10:15 18:21 WBC RBC 2.68 L Hgb 7.8 L Hct 23.3 L MCV MCH MCHC RDW 17.0 H Plt Count Lymph % (Auto) [place] % (Auto) 12.1 H Lymph # [place] # 1.1 H Baso # Seg Neutrophils % Seg Neuts % (Manual) Lymphocytes % (Manual) Monocytes % (Manual) Eosinophils % (Manual) Basophils % (Manual) Nucleated RBC % Seg Neutrophils # Seg Neutrophils # Man Lymphocytes # (Manual) Monocytes # (Manual) Eosinophils # (Manual) Basophils # (Manual) PT INR Fibrinogen dRVVT Confirm Interp Factor V Activity POC ABG pH POC ABG pCO2 POC ABG pO2 ABG pO2 ABG HCO3 ABG Base Excess ABG Hemoglobin Oxyhemoglobin Sodium Potassium Chloride Carbon Dioxide BUN 51 H Creatinine 1.8 H Glucose POC Glucose 60 L Lactic Acid Calcium 8.3 L Ionized Calcium Phosphorus Magnesium Direct Bilirubin AST ALT Alkaline Phosphatase Lactate Dehydrogenase Troponin T C-Reactive Protein Total Protein Albumin Prealbumin Triglycerides Cholesterol LDL Cholesterol Direct HDL Cholesterol 25-OH Vitamin D Total PTH Intact Urine pH Urine WBC (Auto) Urine Creatinine Urine Total Protein Fluid Total Protein Vancomycin Trough Rheumatoid Factor Complement C4 Miscellaneous Test Crossmatch 11/09/16 11/10/16 11/10/16 18:55 07:00 11:51 WBC RBC Hgb Hct MCV MCH MCHC RDW Plt Count Lymph % (Auto) [place] % (Auto) Lymph # [place] # Baso # Seg Neutrophils % Seg Neuts % (Manual) Lymphocytes % (Manual) Monocytes % (Manual) Eosinophils % (Manual) Basophils % (Manual) Nucleated RBC % Seg Neutrophils # Seg Neutrophils # Man Lymphocytes # (Manual) Monocytes # (Manual) Eosinophils # (Manual) Basophils # (Manual) PT INR Fibrinogen dRVVT Confirm Interp Factor V Activity POC ABG pH POC ABG pCO2 POC ABG pO2 ABG pO2 ABG HCO3 ABG Base Excess ABG Hemoglobin Oxyhemoglobin Sodium Potassium 3.0 L D Chloride 97.4 L Carbon Dioxide BUN 28 H Creatinine 1.3 H Glucose POC Glucose 68 L 120 H Lactic Acid Calcium 7.8 L Ionized Calcium Phosphorus Magnesium Direct Bilirubin AST ALT Alkaline Phosphatase Lactate Dehydrogenase Troponin T C-Reactive Protein Total Protein Albumin Prealbumin Triglycerides Cholesterol LDL Cholesterol Direct HDL Cholesterol 25-OH Vitamin D Total PTH Intact Urine pH Urine WBC (Auto) Urine Creatinine Urine Total Protein Fluid Total Protein Vancomycin Trough Rheumatoid Factor Complement C4 Miscellaneous Test Crossmatch 11/10/16 11/11/16 11/11/16 14:20 06:59 06:59 WBC RBC 2.81 L Hgb 8.1 L Hct 24.4 L MCV MCH MCHC RDW 16.4 H Plt Count Lymph % (Auto) [place] % (Auto) 10.8 H Lymph # [place] # 1.0 H Baso # Seg Neutrophils % Seg Neuts % (Manual) Lymphocytes % (Manual) Monocytes % (Manual) Eosinophils % (Manual) Basophils % (Manual) Nucleated RBC % Seg Neutrophils # Seg Neutrophils # Man Lymphocytes # (Manual) Monocytes # (Manual) Eosinophils # (Manual) Basophils # (Manual) PT INR Fibrinogen dRVVT Confirm Interp Factor V Activity POC ABG pH POC ABG pCO2 POC ABG pO2 ABG pO2 ABG HCO3 ABG Base Excess ABG Hemoglobin Oxyhemoglobin Sodium Potassium Chloride Carbon Dioxide BUN Creatinine Glucose POC Glucose Lactic Acid Calcium Ionized Calcium Phosphorus Magnesium Direct Bilirubin AST ALT Alkaline Phosphatase Lactate Dehydrogenase 196 H Troponin T C-Reactive Protein Total Protein 6.1 L Albumin Prealbumin Triglycerides Cholesterol LDL Cholesterol Direct HDL Cholesterol 25-OH Vitamin D Total PTH Intact Urine pH Urine WBC (Auto) Urine Creatinine Urine Total Protein Fluid Total Protein < 3.0 L Vancomycin Trough Rheumatoid Factor Complement C4 Miscellaneous Test Crossmatch 11/11/16 11/11/16 11/12/16 06:59 09:50 04:00 WBC RBC Hgb Hct MCV MCH MCHC RDW Plt Count Lymph % (Auto) [place] % (Auto) Lymph # [place] # Baso # Seg Neutrophils % Seg Neuts % (Manual) Lymphocytes % (Manual) Monocytes % (Manual) Eosinophils % (Manual) Basophils % (Manual) Nucleated RBC % Seg Neutrophils # Seg Neutrophils # Man Lymphocytes # (Manual) Monocytes # (Manual) Eosinophils # (Manual) Basophils # (Manual) PT INR 1.18 H Fibrinogen dRVVT Confirm Interp Factor V Activity POC ABG pH POC ABG pCO2 POC ABG pO2 ABG pO2 ABG HCO3 ABG Base Excess ABG Hemoglobin Oxyhemoglobin Sodium 136 L 133 L Potassium Chloride 96.1 L 94.8 L Carbon Dioxide 21 L BUN 37 H 42 H Creatinine 1.8 H 2.0 H Glucose POC Glucose Lactic Acid Calcium Ionized Calcium Phosphorus Magnesium Direct Bilirubin AST ALT Alkaline Phosphatase Lactate Dehydrogenase Troponin T C-Reactive Protein Total Protein Albumin Prealbumin Triglycerides Cholesterol LDL Cholesterol Direct HDL Cholesterol 25-OH Vitamin D Total PTH Intact Urine pH Urine WBC (Auto) Urine Creatinine Urine Total Protein Fluid Total Protein Vancomycin Trough Rheumatoid Factor Complement C4 Miscellaneous Test Crossmatch 11/12/16 11/12/16 11/13/16 04:00 23:55 05:53 WBC RBC Hgb 8.9 L Hct 27.2 L MCV MCH MCHC RDW Plt Count Lymph % (Auto) [place] % (Auto) Lymph # [place] # Baso # Seg Neutrophils % Seg Neuts % (Manual) Lymphocytes % (Manual) Monocytes % (Manual) Eosinophils % (Manual) Basophils % (Manual) Nucleated RBC % Seg Neutrophils # Seg Neutrophils # Man Lymphocytes # (Manual) Monocytes # (Manual) Eosinophils # (Manual) Basophils # (Manual) PT INR Fibrinogen dRVVT Confirm Interp Factor V Activity POC ABG pH POC ABG pCO2 POC ABG pO2 ABG pO2 ABG HCO3 ABG Base Excess ABG Hemoglobin Oxyhemoglobin Sodium Potassium Chloride Carbon Dioxide BUN Creatinine Glucose POC Glucose 132 H 120 H Lactic Acid Calcium Ionized Calcium Phosphorus Magnesium Direct Bilirubin AST ALT Alkaline Phosphatase Lactate Dehydrogenase Troponin T C-Reactive Protein Total Protein Albumin Prealbumin Triglycerides Cholesterol LDL Cholesterol Direct HDL Cholesterol 25-OH Vitamin D Total PTH Intact Urine pH Urine WBC (Auto) Urine Creatinine Urine Total Protein Fluid Total Protein Vancomycin Trough Rheumatoid Factor Complement C4 Miscellaneous Test Crossmatch 11/13/16 11/13/16 11/13/16 11:43 17:09 23:41 WBC RBC Hgb Hct MCV MCH MCHC RDW Plt Count Lymph % (Auto) [place] % (Auto) Lymph # [place] # Baso # Seg Neutrophils % Seg Neuts % (Manual) Lymphocytes % (Manual) Monocytes % (Manual) Eosinophils % (Manual) Basophils % (Manual) Nucleated RBC % Seg Neutrophils # Seg Neutrophils # Man Lymphocytes # (Manual) Monocytes # (Manual) Eosinophils # (Manual) Basophils # (Manual) PT INR Fibrinogen dRVVT Confirm Interp Factor V Activity POC ABG pH POC ABG pCO2 POC ABG pO2 ABG pO2 ABG HCO3 ABG Base Excess ABG Hemoglobin Oxyhemoglobin Sodium Potassium Chloride Carbon Dioxide BUN Creatinine Glucose POC Glucose 114 H 113 H 108 H Lactic Acid Calcium Ionized Calcium Phosphorus Magnesium Direct Bilirubin AST ALT Alkaline Phosphatase Lactate Dehydrogenase Troponin T C-Reactive Protein Total Protein Albumin Prealbumin Triglycerides Cholesterol LDL Cholesterol Direct HDL Cholesterol 25-OH Vitamin D Total PTH Intact Urine pH Urine WBC (Auto) Urine Creatinine Urine Total Protein Fluid Total Protein Vancomycin Trough Rheumatoid Factor Complement C4 Miscellaneous Test Crossmatch 11/13/16 11/15/16 11/15/16 Unknown 00:37 03:30 WBC 11.2 H RBC 2.72 L Hgb 7.6 L Hct 23.4 L MCV MCH MCHC RDW 16.5 H Plt Count Lymph % (Auto) [place] % (Auto) Lymph # [place] # Baso # Seg Neutrophils % Seg Neuts % (Manual) Lymphocytes % (Manual) Monocytes % (Manual) Eosinophils % (Manual) Basophils % (Manual) Nucleated RBC % Seg Neutrophils # Seg Neutrophils # Man Lymphocytes # (Manual) Monocytes # (Manual) Eosinophils # (Manual) Basophils # (Manual) PT INR Fibrinogen dRVVT Confirm Interp Factor V Activity POC ABG pH POC ABG pCO2 POC ABG pO2 ABG pO2 ABG HCO3 ABG Base Excess ABG Hemoglobin Oxyhemoglobin Sodium 135 L Potassium Chloride 95.2 L Carbon Dioxide BUN 52 H Creatinine 2.2 H Glucose POC Glucose 108 H Lactic Acid Calcium Ionized Calcium Phosphorus Magnesium Direct Bilirubin AST ALT Alkaline Phosphatase Lactate Dehydrogenase Troponin T C-Reactive Protein Total Protein Albumin Prealbumin Triglycerides Cholesterol LDL Cholesterol Direct HDL Cholesterol 25-OH Vitamin D Total PTH Intact Urine pH Urine WBC (Auto) Urine Creatinine Urine Total Protein Fluid Total Protein Vancomycin Trough Rheumatoid Factor Complement C4 Miscellaneous Test Crossmatch 11/15/16 11/15/16 11/15/16 03:30 05:04 11:50 WBC RBC Hgb Hct MCV MCH MCHC RDW Plt Count Lymph % (Auto) [place] % (Auto) Lymph # [place] # Baso # Seg Neutrophils % Seg Neuts % (Manual) Lymphocytes % (Manual) Monocytes % (Manual) Eosinophils % (Manual) Basophils % (Manual) Nucleated RBC % Seg Neutrophils # Seg Neutrophils # Man Lymphocytes # (Manual) Monocytes # (Manual) Eosinophils # (Manual) Basophils # (Manual) PT INR Fibrinogen dRVVT Confirm Interp Factor V Activity POC ABG pH POC ABG pCO2 POC ABG pO2 ABG pO2 ABG HCO3 ABG Base Excess ABG Hemoglobin Oxyhemoglobin Sodium Potassium 3.4 L Chloride Carbon Dioxide BUN 25 H Creatinine 1.5 H Glucose 103 H POC Glucose 121 H 144 H Lactic Acid Calcium Ionized Calcium Phosphorus Magnesium Direct Bilirubin AST ALT Alkaline Phosphatase Lactate Dehydrogenase Troponin T C-Reactive Protein Total Protein Albumin Prealbumin Triglycerides Cholesterol LDL Cholesterol Direct HDL Cholesterol 25-OH Vitamin D Total PTH Intact Urine pH Urine WBC (Auto) Urine Creatinine Urine Total Protein Fluid Total Protein Vancomycin Trough Rheumatoid Factor Complement C4 Miscellaneous Test Crossmatch 11/15/16 11/15/16 11/16/16 21:28 23:20 11:44 WBC RBC Hgb Hct MCV MCH MCHC RDW Plt Count Lymph % (Auto) [place] % (Auto) Lymph # [place] # Baso # Seg Neutrophils % Seg Neuts % (Manual) Lymphocytes % (Manual) Monocytes % (Manual) Eosinophils % (Manual) Basophils % (Manual) Nucleated RBC % Seg Neutrophils # Seg Neutrophils # Man Lymphocytes # (Manual) Monocytes # (Manual) Eosinophils # (Manual) Basophils # (Manual) PT INR Fibrinogen dRVVT Confirm Interp Factor V Activity POC ABG pH 7.462 H POC ABG pCO2 POC ABG pO2 71 L ABG pO2 ABG HCO3 ABG Base Excess ABG Hemoglobin Oxyhemoglobin Sodium Potassium Chloride Carbon Dioxide BUN Creatinine Glucose POC Glucose 116 H 133 H Lactic Acid Calcium Ionized Calcium Phosphorus Magnesium Direct Bilirubin AST ALT Alkaline Phosphatase Lactate Dehydrogenase Troponin T C-Reactive Protein Total Protein Albumin Prealbumin Triglycerides Cholesterol LDL Cholesterol Direct HDL Cholesterol 25-OH Vitamin D Total PTH Intact Urine pH Urine WBC (Auto) Urine Creatinine Urine Total Protein Fluid Total Protein Vancomycin Trough Rheumatoid Factor Complement C4 Miscellaneous Test Crossmatch 11/16/16 11/16/16 11/16/16 12:20 17:05 23:35 WBC 11.7 H RBC 2.73 L Hgb 7.6 L Hct 23.7 L MCV MCH MCHC RDW 16.6 H Plt Count Lymph % (Auto) [place] % (Auto) Lymph # [place] # Baso # Seg Neutrophils % Seg Neuts % (Manual) Lymphocytes % (Manual) Monocytes % (Manual) Eosinophils % (Manual) Basophils % (Manual) Nucleated RBC % Seg Neutrophils # Seg Neutrophils # Man Lymphocytes # (Manual) Monocytes # (Manual) Eosinophils # (Manual) Basophils # (Manual) PT INR Fibrinogen dRVVT Confirm Interp Factor V Activity POC ABG pH POC ABG pCO2 POC ABG pO2 ABG pO2 ABG HCO3 ABG Base Excess ABG Hemoglobin Oxyhemoglobin Sodium Potassium Chloride Carbon Dioxide BUN Creatinine Glucose POC Glucose 154 H 125 H Lactic Acid Calcium Ionized Calcium Phosphorus Magnesium Direct Bilirubin AST ALT Alkaline Phosphatase Lactate Dehydrogenase Troponin T C-Reactive Protein Total Protein Albumin Prealbumin Triglycerides Cholesterol LDL Cholesterol Direct HDL Cholesterol 25-OH Vitamin D Total PTH Intact Urine pH Urine WBC (Auto) Urine Creatinine Urine Total Protein Fluid Total Protein Vancomycin Trough Rheumatoid Factor Complement C4 Miscellaneous Test Crossmatch 11/17/16 11/17/16 11/17/16 03:20 03:20 03:20 WBC RBC 2.55 L Hgb 7.3 L Hct 21.9 L MCV MCH MCHC RDW 16.6 H Plt Count Lymph % (Auto) [place] % (Auto) 11.5 H Lymph # [place] # 1.1 H Baso # Seg Neutrophils % Seg Neuts % (Manual) Lymphocytes % (Manual) Monocytes % (Manual) Eosinophils % (Manual) Basophils % (Manual) Nucleated RBC % Seg Neutrophils # Seg Neutrophils # Man Lymphocytes # (Manual) Monocytes # (Manual) Eosinophils # (Manual) Basophils # (Manual) PT 16.8 H INR 1.37 H Fibrinogen dRVVT Confirm Interp Factor V Activity POC ABG pH POC ABG pCO2 POC ABG pO2 ABG pO2 ABG HCO3 ABG Base Excess ABG Hemoglobin Oxyhemoglobin Sodium Potassium 3.5 L Chloride Carbon Dioxide BUN 21 H Creatinine Glucose POC Glucose Lactic Acid Calcium 7.9 L Ionized Calcium Phosphorus Magnesium Direct Bilirubin AST ALT Alkaline Phosphatase Lactate Dehydrogenase Troponin T C-Reactive Protein Total Protein Albumin Prealbumin Triglycerides Cholesterol LDL Cholesterol Direct HDL Cholesterol 25-OH Vitamin D Total PTH Intact Urine pH Urine WBC (Auto) Urine Creatinine Urine Total Protein Fluid Total Protein Vancomycin Trough Rheumatoid Factor Complement C4 Miscellaneous Test Crossmatch 11/17/16 11/17/16 11/17/16 06:34 11:21 21:22 WBC RBC Hgb Hct MCV MCH MCHC RDW Plt Count Lymph % (Auto) [place] % (Auto) Lymph # [place] # Baso # Seg Neutrophils % Seg Neuts % (Manual) Lymphocytes % (Manual) Monocytes % (Manual) Eosinophils % (Manual) Basophils % (Manual) Nucleated RBC % Seg Neutrophils # Seg Neutrophils # Man Lymphocytes # (Manual) Monocytes # (Manual) Eosinophils # (Manual) Basophils # (Manual) PT INR Fibrinogen dRVVT Confirm Interp Factor V Activity POC ABG pH 7.467 H POC ABG pCO2 POC ABG pO2 73 L ABG pO2 ABG HCO3 ABG Base Excess ABG Hemoglobin Oxyhemoglobin Sodium Potassium Chloride Carbon Dioxide BUN Creatinine Glucose POC Glucose 121 H 119 H Lactic Acid Calcium Ionized Calcium Phosphorus Magnesium Direct Bilirubin AST ALT Alkaline Phosphatase Lactate Dehydrogenase Troponin T C-Reactive Protein Total Protein Albumin Prealbumin Triglycerides Cholesterol LDL Cholesterol Direct HDL Cholesterol 25-OH Vitamin D Total PTH Intact Urine pH Urine WBC (Auto) Urine Creatinine Urine Total Protein Fluid Total Protein Vancomycin Trough Rheumatoid Factor Complement C4 Miscellaneous Test Crossmatch 11/18/16 11/18/16 11/19/16 12:16 17:19 00:00 WBC RBC Hgb Hct MCV MCH MCHC RDW Plt Count Lymph % (Auto) [place] % (Auto) Lymph # [place] # Baso # Seg Neutrophils % Seg Neuts % (Manual) Lymphocytes % (Manual) Monocytes % (Manual) Eosinophils % (Manual) Basophils % (Manual) Nucleated RBC % Seg Neutrophils # Seg Neutrophils # Man Lymphocytes # (Manual) Monocytes # (Manual) Eosinophils # (Manual) Basophils # (Manual) PT INR Fibrinogen dRVVT Confirm Interp Factor V Activity POC ABG pH POC ABG pCO2 POC ABG pO2 ABG pO2 ABG HCO3 ABG Base Excess ABG Hemoglobin Oxyhemoglobin Sodium Potassium Chloride Carbon Dioxide BUN Creatinine Glucose POC Glucose 124 H 162 H 139 H Lactic Acid Calcium Ionized Calcium Phosphorus Magnesium Direct Bilirubin AST ALT Alkaline Phosphatase Lactate Dehydrogenase Troponin T C-Reactive Protein Total Protein Albumin Prealbumin Triglycerides Cholesterol LDL Cholesterol Direct HDL Cholesterol 25-OH Vitamin D Total PTH Intact Urine pH Urine WBC (Auto) Urine Creatinine Urine Total Protein Fluid Total Protein Vancomycin Trough Rheumatoid Factor Complement C4 Miscellaneous Test Crossmatch 11/19/16 11/19/16 11/20/16 05:00 12:43 00:40 WBC RBC Hgb Hct MCV MCH MCHC RDW Plt Count Lymph % (Auto) [place] % (Auto) Lymph # [place] # Baso # Seg Neutrophils % Seg Neuts % (Manual) Lymphocytes % (Manual) Monocytes % (Manual) Eosinophils % (Manual) Basophils % (Manual) Nucleated RBC % Seg Neutrophils # Seg Neutrophils # Man Lymphocytes # (Manual) Monocytes # (Manual) Eosinophils # (Manual) Basophils # (Manual) PT INR Fibrinogen dRVVT Confirm Interp Factor V Activity POC ABG pH POC ABG pCO2 POC ABG pO2 ABG pO2 ABG HCO3 ABG Base Excess ABG Hemoglobin Oxyhemoglobin Sodium Potassium Chloride Carbon Dioxide BUN Creatinine Glucose POC Glucose 110 H 125 H 136 H Lactic Acid Calcium Ionized Calcium Phosphorus Magnesium Direct Bilirubin AST ALT Alkaline Phosphatase Lactate Dehydrogenase Troponin T C-Reactive Protein Total Protein Albumin Prealbumin Triglycerides Cholesterol LDL Cholesterol Direct HDL Cholesterol 25-OH Vitamin D Total PTH Intact Urine pH Urine WBC (Auto) Urine Creatinine Urine Total Protein Fluid Total Protein Vancomycin Trough Rheumatoid Factor Complement C4 Miscellaneous Test Crossmatch 11/20/16 11/20/16 11/20/16 05:00 05:00 05:51 WBC 13.1 H RBC 2.74 L Hgb 7.7 L Hct 23.6 L MCV MCH MCHC RDW 16.9 H Plt Count Lymph % (Auto) [place] % (Auto) 10.8 H Lymph # [place] # 1.4 H Baso # Seg Neutrophils % Seg Neuts % (Manual) Lymphocytes % (Manual) Monocytes % (Manual) Eosinophils % (Manual) Basophils % (Manual) Nucleated RBC % Seg Neutrophils # 7.9 H Seg Neutrophils # Man Lymphocytes # (Manual) Monocytes # (Manual) Eosinophils # (Manual) Basophils # (Manual) PT INR Fibrinogen dRVVT Confirm Interp Factor V Activity POC ABG pH POC ABG pCO2 POC ABG pO2 ABG pO2 ABG HCO3 ABG Base Excess ABG Hemoglobin Oxyhemoglobin Sodium Potassium Chloride Carbon Dioxide BUN 31 H Creatinine 1.8 H Glucose 129 H POC Glucose 133 H Lactic Acid Calcium Ionized Calcium Phosphorus Magnesium Direct Bilirubin AST ALT Alkaline Phosphatase Lactate Dehydrogenase Troponin T C-Reactive Protein Total Protein Albumin Prealbumin Triglycerides Cholesterol LDL Cholesterol Direct HDL Cholesterol 25-OH Vitamin D Total PTH Intact Urine pH Urine WBC (Auto) Urine Creatinine Urine Total Protein Fluid Total Protein Vancomycin Trough Rheumatoid Factor Complement C4 Miscellaneous Test Crossmatch 11/20/16 11/20/16 11/21/16 12:40 18:10 01:20 WBC RBC Hgb Hct MCV MCH MCHC RDW Plt Count Lymph % (Auto) [place] % (Auto) Lymph # [place] # Baso # Seg Neutrophils % Seg Neuts % (Manual) Lymphocytes % (Manual) Monocytes % (Manual) Eosinophils % (Manual) Basophils % (Manual) Nucleated RBC % Seg Neutrophils # Seg Neutrophils # Man Lymphocytes # (Manual) Monocytes # (Manual) Eosinophils # (Manual) Basophils # (Manual) PT INR Fibrinogen dRVVT Confirm Interp Factor V Activity POC ABG pH POC ABG pCO2 POC ABG pO2 ABG pO2 ABG HCO3 ABG Base Excess ABG Hemoglobin Oxyhemoglobin Sodium Potassium Chloride Carbon Dioxide BUN Creatinine Glucose POC Glucose 134 H 138 H 136 H Lactic Acid Calcium Ionized Calcium Phosphorus Magnesium Direct Bilirubin AST ALT Alkaline Phosphatase Lactate Dehydrogenase Troponin T C-Reactive Protein Total Protein Albumin Prealbumin Triglycerides Cholesterol LDL Cholesterol Direct HDL Cholesterol 25-OH Vitamin D Total PTH Intact Urine pH Urine WBC (Auto) Urine Creatinine Urine Total Protein Fluid Total Protein Vancomycin Trough Rheumatoid Factor Complement C4 Miscellaneous Test Crossmatch 11/21/16 11/21/16 11/21/16 07:04 07:45 07:45 WBC 22.0 H RBC 2.91 L Hgb 8.2 L Hct 25.4 L MCV MCH MCHC RDW 17.1 H Plt Count Lymph % (Auto) [place] % (Auto) Lymph # [place] # Baso # Seg Neutrophils % Seg Neuts % (Manual) Lymphocytes % (Manual) 8.0 L Monocytes % (Manual) Eosinophils % (Manual) Basophils % (Manual) Nucleated RBC % Seg Neutrophils # Seg Neutrophils # Man 14.7 H Lymphocytes # (Manual) Monocytes # (Manual) 1.1 H Eosinophils # (Manual) Basophils # (Manual) PT INR Fibrinogen dRVVT Confirm Interp Factor V Activity POC ABG pH POC ABG pCO2 POC ABG pO2 ABG pO2 ABG HCO3 ABG Base Excess ABG Hemoglobin Oxyhemoglobin Sodium Potassium Chloride Carbon Dioxide BUN 42 H Creatinine 2.0 H Glucose POC Glucose 108 H Lactic Acid Calcium Ionized Calcium Phosphorus Magnesium Direct Bilirubin AST ALT Alkaline Phosphatase Lactate Dehydrogenase Troponin T C-Reactive Protein Total Protein Albumin Prealbumin Triglycerides Cholesterol LDL Cholesterol Direct HDL Cholesterol 25-OH Vitamin D Total PTH Intact Urine pH Urine WBC (Auto) Urine Creatinine Urine Total Protein Fluid Total Protein Vancomycin Trough Rheumatoid Factor Complement C4 Miscellaneous Test Crossmatch 11/21/16 11/21/16 11/21/16 08:38 10:09 11:20 WBC RBC Hgb Hct MCV MCH MCHC RDW Plt Count Lymph % (Auto) [place] % (Auto) Lymph # [place] # Baso # Seg Neutrophils % Seg Neuts % (Manual) Lymphocytes % (Manual) Monocytes % (Manual) Eosinophils % (Manual) Basophils % (Manual) Nucleated RBC % Seg Neutrophils # Seg Neutrophils # Man Lymphocytes # (Manual) Monocytes # (Manual) Eosinophils # (Manual) Basophils # (Manual) PT INR Fibrinogen dRVVT Confirm Interp Factor V Activity POC ABG pH 7.346 L POC ABG pCO2 34.4 L POC ABG pO2 314 H ABG pO2 ABG HCO3 ABG Base Excess ABG Hemoglobin Oxyhemoglobin Sodium Potassium Chloride Carbon Dioxide BUN Creatinine Glucose POC Glucose 195 H 153 H Lactic Acid Calcium Ionized Calcium Phosphorus Magnesium Direct Bilirubin AST ALT Alkaline Phosphatase Lactate Dehydrogenase Troponin T C-Reactive Protein Total Protein Albumin Prealbumin Triglycerides Cholesterol LDL Cholesterol Direct HDL Cholesterol 25-OH Vitamin D Total PTH Intact Urine pH Urine WBC (Auto) Urine Creatinine Urine Total Protein Fluid Total Protein Vancomycin Trough Rheumatoid Factor Complement C4 Miscellaneous Test Crossmatch 11/21/16 11/22/16 11/22/16 23:37 04:48 05:00 WBC 29.7 H RBC 2.73 L Hgb 7.5 L Hct 24.2 L MCV MCH 27 L MCHC RDW 17.4 H Plt Count Lymph % (Auto) [place] % (Auto) Lymph # [place] # Baso # Seg Neutrophils % Seg Neuts % (Manual) Lymphocytes % (Manual) 7.0 L Monocytes % (Manual) Eosinophils % (Manual) Basophils % (Manual) Nucleated RBC % Seg Neutrophils # Seg Neutrophils # Man 15.4 H Lymphocytes # (Manual) Monocytes # (Manual) Eosinophils # (Manual) Basophils # (Manual) PT INR Fibrinogen dRVVT Confirm Interp Factor V Activity POC ABG pH POC ABG pCO2 24.6 L POC ABG pO2 189 H ABG pO2 ABG HCO3 ABG Base Excess ABG Hemoglobin Oxyhemoglobin Sodium Potassium Chloride Carbon Dioxide BUN Creatinine Glucose POC Glucose 65 L Lactic Acid Calcium Ionized Calcium Phosphorus Magnesium Direct Bilirubin AST ALT Alkaline Phosphatase Lactate Dehydrogenase Troponin T C-Reactive Protein Total Protein Albumin Prealbumin Triglycerides Cholesterol LDL Cholesterol Direct HDL Cholesterol 25-OH Vitamin D Total PTH Intact Urine pH Urine WBC (Auto) Urine Creatinine Urine Total Protein Fluid Total Protein Vancomycin Trough Rheumatoid Factor Complement C4 Miscellaneous Test Crossmatch 11/22/16 11/23/16 11/23/16 05:00 03:44 04:06 WBC RBC 2.52 L Hgb 7.2 L Hct 21.5 L MCV MCH MCHC RDW 17.1 H Plt Count Lymph % (Auto) [place] % (Auto) 12.4 H Lymph # [place] # 1.4 H Baso # Seg Neutrophils % Seg Neuts % (Manual) Lymphocytes % (Manual) Monocytes % (Manual) Eosinophils % (Manual) Basophils % (Manual) Nucleated RBC % Seg Neutrophils # Seg Neutrophils # Man Lymphocytes # (Manual) Monocytes # (Manual) Eosinophils # (Manual) Basophils # (Manual) PT INR Fibrinogen dRVVT Confirm Interp Factor V Activity POC ABG pH 7.493 H POC ABG pCO2 29.5 L POC ABG pO2 49 L ABG pO2 ABG HCO3 ABG Base Excess ABG Hemoglobin Oxyhemoglobin Sodium 134 L Potassium Chloride 95.9 L Carbon Dioxide 14 L D BUN 51 H Creatinine 2.6 H Glucose POC Glucose Lactic Acid Calcium Ionized Calcium Phosphorus Magnesium Direct Bilirubin AST ALT Alkaline Phosphatase Lactate Dehydrogenase Troponin T C-Reactive Protein Total Protein Albumin Prealbumin Triglycerides Cholesterol LDL Cholesterol Direct HDL Cholesterol 25-OH Vitamin D Total PTH Intact Urine pH Urine WBC (Auto) Urine Creatinine Urine Total Protein Fluid Total Protein Vancomycin Trough Rheumatoid Factor Complement C4 Miscellaneous Test Crossmatch 11/23/16 11/23/16 11/24/16 04:06 11:29 06:39 WBC RBC Hgb Hct MCV MCH MCHC RDW Plt Count Lymph % (Auto) [place] % (Auto) Lymph # [place] # Baso # Seg Neutrophils % Seg Neuts % (Manual) Lymphocytes % (Manual) Monocytes % (Manual) Eosinophils % (Manual) Basophils % (Manual) Nucleated RBC % Seg Neutrophils # Seg Neutrophils # Man Lymphocytes # (Manual) Monocytes # (Manual) Eosinophils # (Manual) Basophils # (Manual) PT INR Fibrinogen dRVVT Confirm Interp Factor V Activity POC ABG pH POC ABG pCO2 POC ABG pO2 ABG pO2 ABG HCO3 ABG Base Excess ABG Hemoglobin Oxyhemoglobin Sodium 136 L Potassium Chloride 95.2 L Carbon Dioxide BUN 60 H Creatinine 2.9 H Glucose POC Glucose 69 L 305 H Lactic Acid Calcium Ionized Calcium Phosphorus Magnesium 1.60 L Direct Bilirubin AST ALT Alkaline Phosphatase Lactate Dehydrogenase Troponin T C-Reactive Protein Total Protein Albumin Prealbumin Triglycerides Cholesterol LDL Cholesterol Direct HDL Cholesterol 25-OH Vitamin D Total PTH Intact Urine pH Urine WBC (Auto) Urine Creatinine Urine Total Protein Fluid Total Protein Vancomycin Trough Rheumatoid Factor Complement C4 Miscellaneous Test Crossmatch 11/24/16 11/24/16 11/24/16 06:43 08:08 08:08 WBC 11.2 H RBC 2.47 L Hgb 6.8 L Hct 20.6 L MCV MCH MCHC RDW 17.0 H Plt Count Lymph % (Auto) [place] % (Auto) 10.3 H Lymph # [place] # 1.2 H Baso # Seg Neutrophils % Seg Neuts % (Manual) Lymphocytes % (Manual) Monocytes % (Manual) Eosinophils % (Manual) Basophils % (Manual) Nucleated RBC % Seg Neutrophils # Seg Neutrophils # Man Lymphocytes # (Manual) Monocytes # (Manual) Eosinophils # (Manual) Basophils # (Manual) PT INR Fibrinogen dRVVT Confirm Interp Factor V Activity POC ABG pH POC ABG pCO2 POC ABG pO2 ABG pO2 ABG HCO3 ABG Base Excess ABG Hemoglobin Oxyhemoglobin Sodium 135 L Potassium Chloride 96.3 L Carbon Dioxide BUN 61 H Creatinine 3.1 H Glucose POC Glucose 62 L Lactic Acid Calcium 8.2 L Ionized Calcium Phosphorus Magnesium Direct Bilirubin AST ALT Alkaline Phosphatase Lactate Dehydrogenase Troponin T C-Reactive Protein Total Protein Albumin Prealbumin Triglycerides Cholesterol LDL Cholesterol Direct HDL Cholesterol 25-OH Vitamin D Total PTH Intact Urine pH Urine WBC (Auto) Urine Creatinine Urine Total Protein Fluid Total Protein Vancomycin Trough Rheumatoid Factor Complement C4 Miscellaneous Test Crossmatch 11/24/16 11/24/16 11/24/16 08:34 11:20 12:41 WBC RBC Hgb Hct MCV MCH MCHC RDW Plt Count Lymph % (Auto) [place] % (Auto) Lymph # [place] # Baso # Seg Neutrophils % Seg Neuts % (Manual) Lymphocytes % (Manual) Monocytes % (Manual) Eosinophils % (Manual) Basophils % (Manual) Nucleated RBC % Seg Neutrophils # Seg Neutrophils # Man Lymphocytes # (Manual) Monocytes # (Manual) Eosinophils # (Manual) Basophils # (Manual) PT INR Fibrinogen dRVVT Confirm Interp Factor V Activity POC ABG pH POC ABG pCO2 POC ABG pO2 ABG pO2 ABG HCO3 ABG Base Excess ABG Hemoglobin Oxyhemoglobin Sodium Potassium Chloride Carbon Dioxide BUN Creatinine Glucose POC Glucose 108 H Lactic Acid Calcium Ionized Calcium Phosphorus Magnesium 1.60 L Direct Bilirubin AST ALT Alkaline Phosphatase Lactate Dehydrogenase Troponin T C-Reactive Protein Total Protein Albumin Prealbumin Triglycerides Cholesterol LDL Cholesterol Direct HDL Cholesterol 25-OH Vitamin D Total PTH Intact Urine pH Urine WBC (Auto) Urine Creatinine Urine Total Protein Fluid Total Protein Vancomycin Trough Rheumatoid Factor Complement C4 Miscellaneous Test Crossmatch See Detail 11/25/16 11/25/16 11/25/16 00:03 04:42 04:42 WBC RBC 3.03 L Hgb 8.6 L Hct 25.3 L MCV MCH MCHC RDW 16.2 H Plt Count Lymph % (Auto) [place] % (Auto) 8.1 H Lymph # [place] # Baso # Seg Neutrophils % 71.3 H Seg Neuts % (Manual) Lymphocytes % (Manual) Monocytes % (Manual) Eosinophils % (Manual) Basophils % (Manual) Nucleated RBC % Seg Neutrophils # Seg Neutrophils # Man Lymphocytes # (Manual) Monocytes # (Manual) Eosinophils # (Manual) Basophils # (Manual) PT INR Fibrinogen dRVVT Confirm Interp Factor V Activity POC ABG pH POC ABG pCO2 POC ABG pO2 ABG pO2 ABG HCO3 ABG Base Excess ABG Hemoglobin Oxyhemoglobin Sodium Potassium Chloride Carbon Dioxide BUN 61 H Creatinine 3.0 H Glucose 102 H POC Glucose 113 H Lactic Acid Calcium 8.2 L Ionized Calcium Phosphorus Magnesium Direct Bilirubin AST ALT Alkaline Phosphatase 142 H Lactate Dehydrogenase Troponin T C-Reactive Protein Total Protein 5.7 L Albumin 1.5 L Prealbumin Triglycerides Cholesterol LDL Cholesterol Direct HDL Cholesterol 25-OH Vitamin D Total PTH Intact Urine pH Urine WBC (Auto) Urine Creatinine Urine Total Protein Fluid Total Protein Vancomycin Trough Rheumatoid Factor Complement C4 Miscellaneous Test Crossmatch 11/25/16 11/25/16 11/25/16 05:12 11:31 14:12 WBC RBC Hgb Hct MCV MCH MCHC RDW Plt Count Lymph % (Auto) [place] % (Auto) Lymph # [place] # Baso # Seg Neutrophils % Seg Neuts % (Manual) Lymphocytes % (Manual) Monocytes % (Manual) Eosinophils % (Manual) Basophils % (Manual) Nucleated RBC % Seg Neutrophils # Seg Neutrophils # Man Lymphocytes # (Manual) Monocytes # (Manual) Eosinophils # (Manual) Basophils # (Manual) PT INR Fibrinogen dRVVT Confirm Interp Factor V Activity POC ABG pH 7.487 H POC ABG pCO2 POC ABG pO2 153 H ABG pO2 ABG HCO3 ABG Base Excess ABG Hemoglobin Oxyhemoglobin Sodium Potassium Chloride Carbon Dioxide BUN Creatinine Glucose POC Glucose 131 H 140 H Lactic Acid Calcium Ionized Calcium Phosphorus Magnesium Direct Bilirubin AST ALT Alkaline Phosphatase Lactate Dehydrogenase Troponin T C-Reactive Protein Total Protein Albumin Prealbumin Triglycerides Cholesterol LDL Cholesterol Direct HDL Cholesterol 25-OH Vitamin D Total PTH Intact Urine pH Urine WBC (Auto) Urine Creatinine Urine Total Protein Fluid Total Protein Vancomycin Trough Rheumatoid Factor Complement C4 Miscellaneous Test Crossmatch 11/25/16 11/26/16 11/26/16 17:23 00:09 05:13 WBC RBC 2.94 L Hgb 8.4 L Hct 24.6 L MCV MCH MCHC RDW 16.4 H Plt Count Lymph % (Auto) [place] % (Auto) 12.3 H Lymph # [place] # 1.1 H Baso # Seg Neutrophils % Seg Neuts % (Manual) Lymphocytes % (Manual) Monocytes % (Manual) Eosinophils % (Manual) Basophils % (Manual) Nucleated RBC % Seg Neutrophils # Seg Neutrophils # Man Lymphocytes # (Manual) Monocytes # (Manual) Eosinophils # (Manual) Basophils # (Manual) PT INR Fibrinogen dRVVT Confirm Interp Factor V Activity POC ABG pH POC ABG pCO2 POC ABG pO2 ABG pO2 ABG HCO3 ABG Base Excess ABG Hemoglobin Oxyhemoglobin Sodium Potassium Chloride Carbon Dioxide BUN Creatinine Glucose POC Glucose 146 H 112 H Lactic Acid Calcium Ionized Calcium Phosphorus Magnesium Direct Bilirubin AST ALT Alkaline Phosphatase Lactate Dehydrogenase Troponin T C-Reactive Protein Total Protein Albumin Prealbumin Triglycerides Cholesterol LDL Cholesterol Direct HDL Cholesterol 25-OH Vitamin D Total PTH Intact Urine pH Urine WBC (Auto) Urine Creatinine Urine Total Protein Fluid Total Protein Vancomycin Trough Rheumatoid Factor Complement C4 Miscellaneous Test Crossmatch 11/26/16 11/26/16 11/26/16 05:13 05:28 11:53 WBC RBC Hgb Hct MCV MCH MCHC RDW Plt Count Lymph % (Auto) [place] % (Auto) Lymph # [place] # Baso # Seg Neutrophils % Seg Neuts % (Manual) Lymphocytes % (Manual) Monocytes % (Manual) Eosinophils % (Manual) Basophils % (Manual) Nucleated RBC % Seg Neutrophils # Seg Neutrophils # Man Lymphocytes # (Manual) Monocytes # (Manual) Eosinophils # (Manual) Basophils # (Manual) PT INR Fibrinogen dRVVT Confirm Interp Factor V Activity POC ABG pH POC ABG pCO2 POC ABG pO2 ABG pO2 ABG HCO3 ABG Base Excess ABG Hemoglobin Oxyhemoglobin Sodium Potassium Chloride 97.8 L Carbon Dioxide BUN 37 H Creatinine 2.0 H Glucose 109 H POC Glucose 117 H 111 H Lactic Acid Calcium 7.9 L Ionized Calcium Phosphorus 1.80 L D Magnesium Direct Bilirubin AST ALT Alkaline Phosphatase Lactate Dehydrogenase Troponin T C-Reactive Protein Total Protein Albumin Prealbumin Triglycerides Cholesterol LDL Cholesterol Direct HDL Cholesterol 25-OH Vitamin D Total PTH Intact Urine pH Urine WBC (Auto) Urine Creatinine Urine Total Protein Fluid Total Protein Vancomycin Trough Rheumatoid Factor Complement C4 Miscellaneous Test Crossmatch 11/26/16 11/27/16 11/27/16 17:14 04:50 06:02 WBC RBC Hgb Hct MCV MCH MCHC RDW Plt Count Lymph % (Auto) [place] % (Auto) Lymph # [place] # Baso # Seg Neutrophils % Seg Neuts % (Manual) Lymphocytes % (Manual) Monocytes % (Manual) Eosinophils % (Manual) Basophils % (Manual) Nucleated RBC % Seg Neutrophils # Seg Neutrophils # Man Lymphocytes # (Manual) Monocytes # (Manual) Eosinophils # (Manual) Basophils # (Manual) PT INR Fibrinogen dRVVT Confirm Interp Factor V Activity POC ABG pH POC ABG pCO2 POC ABG pO2 ABG pO2 75.2 L ABG HCO3 26.4 H ABG Base Excess ABG Hemoglobin 7.6 L Oxyhemoglobin 94.8 L Sodium Potassium Chloride Carbon Dioxide BUN 49 H Creatinine 2.3 H Glucose POC Glucose 115 H Lactic Acid Calcium Ionized Calcium Phosphorus 1.50 L Magnesium Direct Bilirubin AST ALT Alkaline Phosphatase Lactate Dehydrogenase Troponin T C-Reactive Protein Total Protein Albumin Prealbumin Triglycerides Cholesterol LDL Cholesterol Direct HDL Cholesterol 25-OH Vitamin D Total PTH Intact Urine pH Urine WBC (Auto) Urine Creatinine Urine Total Protein Fluid Total Protein Vancomycin Trough Rheumatoid Factor Complement C4 Miscellaneous Test Crossmatch 11/27/16 11/27/16 11/27/16 06:02 11:25 17:25 WBC 11.6 H RBC 2.75 L Hgb 7.6 L Hct 23.4 L MCV MCH MCHC RDW 16.5 H Plt Count Lymph % (Auto) [place] % (Auto) Lymph # [place] # Baso # Seg Neutrophils % Seg Neuts % (Manual) Lymphocytes % (Manual) Monocytes % (Manual) Eosinophils % (Manual) Basophils % (Manual) Nucleated RBC % Seg Neutrophils # Seg Neutrophils # Man Lymphocytes # (Manual) Monocytes # (Manual) Eosinophils # (Manual) Basophils # (Manual) PT INR Fibrinogen dRVVT Confirm Interp Factor V Activity POC ABG pH POC ABG pCO2 POC ABG pO2 ABG pO2 ABG HCO3 ABG Base Excess ABG Hemoglobin Oxyhemoglobin Sodium Potassium Chloride Carbon Dioxide BUN Creatinine Glucose POC Glucose 114 H 126 H Lactic Acid Calcium Ionized Calcium Phosphorus Magnesium Direct Bilirubin AST ALT Alkaline Phosphatase Lactate Dehydrogenase Troponin T C-Reactive Protein Total Protein Albumin Prealbumin Triglycerides Cholesterol LDL Cholesterol Direct HDL Cholesterol 25-OH Vitamin D Total PTH Intact Urine pH Urine WBC (Auto) Urine Creatinine Urine Total Protein Fluid Total Protein Vancomycin Trough Rheumatoid Factor Complement C4 Miscellaneous Test Crossmatch 11/28/16 11/28/16 11/28/16 04:45 05:33 05:44 WBC RBC Hgb Hct MCV MCH MCHC RDW Plt Count Lymph % (Auto) [place] % (Auto) Lymph # [place] # Baso # Seg Neutrophils % Seg Neuts % (Manual) Lymphocytes % (Manual) Monocytes % (Manual) Eosinophils % (Manual) Basophils % (Manual) Nucleated RBC % Seg Neutrophils # Seg Neutrophils # Man Lymphocytes # (Manual) Monocytes # (Manual) Eosinophils # (Manual) Basophils # (Manual) PT INR Fibrinogen dRVVT Confirm Interp Factor V Activity POC ABG pH POC ABG pCO2 POC ABG pO2 ABG pO2 99.3 H ABG HCO3 ABG Base Excess ABG Hemoglobin 8.3 L Oxyhemoglobin Sodium Potassium Chloride Carbon Dioxide BUN 63 H Creatinine 2.4 H Glucose 102 H POC Glucose 108 H Lactic Acid Calcium Ionized Calcium Phosphorus 1.80 L Magnesium Direct Bilirubin AST ALT Alkaline Phosphatase Lactate Dehydrogenase Troponin T C-Reactive Protein Total Protein Albumin Prealbumin Triglycerides Cholesterol LDL Cholesterol Direct HDL Cholesterol 25-OH Vitamin D Total PTH Intact Urine pH Urine WBC (Auto) Urine Creatinine Urine Total Protein Fluid Total Protein Vancomycin Trough Rheumatoid Factor Complement C4 Miscellaneous Test Crossmatch 11/28/16 11/28/16 11/28/16 12:31 16:09 23:46 WBC RBC Hgb Hct MCV MCH MCHC RDW Plt Count Lymph % (Auto) [place] % (Auto) Lymph # [place] # Baso # Seg Neutrophils % Seg Neuts % (Manual) Lymphocytes % (Manual) Monocytes % (Manual) Eosinophils % (Manual) Basophils % (Manual) Nucleated RBC % Seg Neutrophils # Seg Neutrophils # Man Lymphocytes # (Manual) Monocytes # (Manual) Eosinophils # (Manual) Basophils # (Manual) PT INR Fibrinogen dRVVT Confirm Interp Factor V Activity POC ABG pH POC ABG pCO2 POC ABG pO2 ABG pO2 ABG HCO3 ABG Base Excess ABG Hemoglobin Oxyhemoglobin Sodium Potassium Chloride Carbon Dioxide BUN Creatinine Glucose POC Glucose 126 H 111 H 119 H Lactic Acid Calcium Ionized Calcium Phosphorus Magnesium Direct Bilirubin AST ALT Alkaline Phosphatase Lactate Dehydrogenase Troponin T C-Reactive Protein Total Protein Albumin Prealbumin Triglycerides Cholesterol LDL Cholesterol Direct HDL Cholesterol 25-OH Vitamin D Total PTH Intact Urine pH Urine WBC (Auto) Urine Creatinine Urine Total Protein Fluid Total Protein Vancomycin Trough Rheumatoid Factor Complement C4 Miscellaneous Test Crossmatch 11/29/16 11/29/16 11/29/16 03:33 04:52 05:10 WBC RBC Hgb Hct MCV MCH MCHC RDW Plt Count Lymph % (Auto) [place] % (Auto) Lymph # [place] # Baso # Seg Neutrophils % Seg Neuts % (Manual) Lymphocytes % (Manual) Monocytes % (Manual) Eosinophils % (Manual) Basophils % (Manual) Nucleated RBC % Seg Neutrophils # Seg Neutrophils # Man Lymphocytes # (Manual) Monocytes # (Manual) Eosinophils # (Manual) Basophils # (Manual) PT INR Fibrinogen dRVVT Confirm Interp Factor V Activity POC ABG pH POC ABG pCO2 POC ABG pO2 ABG pO2 ABG HCO3 ABG Base Excess ABG Hemoglobin 7.0 L Oxyhemoglobin 94.9 L Sodium Potassium Chloride Carbon Dioxide BUN 73 H Creatinine 2.7 H Glucose POC Glucose 108 H Lactic Acid Calcium Ionized Calcium Phosphorus Magnesium Direct Bilirubin AST ALT Alkaline Phosphatase Lactate Dehydrogenase Troponin T C-Reactive Protein Total Protein Albumin Prealbumin Triglycerides Cholesterol LDL Cholesterol Direct HDL Cholesterol 25-OH Vitamin D Total PTH Intact Urine pH Urine WBC (Auto) Urine Creatinine Urine Total Protein Fluid Total Protein Vancomycin Trough Rheumatoid Factor Complement C4 Miscellaneous Test Crossmatch 11/29/16 11/29/16 11/29/16 12:16 18:05 23:46 WBC RBC Hgb Hct MCV MCH MCHC RDW Plt Count Lymph % (Auto) [place] % (Auto) Lymph # [place] # Baso # Seg Neutrophils % Seg Neuts % (Manual) Lymphocytes % (Manual) Monocytes % (Manual) Eosinophils % (Manual) Basophils % (Manual) Nucleated RBC % Seg Neutrophils # Seg Neutrophils # Man Lymphocytes # (Manual) Monocytes # (Manual) Eosinophils # (Manual) Basophils # (Manual) PT INR Fibrinogen dRVVT Confirm Interp Factor V Activity POC ABG pH POC ABG pCO2 POC ABG pO2 ABG pO2 ABG HCO3 ABG Base Excess ABG Hemoglobin Oxyhemoglobin Sodium Potassium Chloride Carbon Dioxide BUN Creatinine Glucose POC Glucose 133 H 146 H 141 H Lactic Acid Calcium Ionized Calcium Phosphorus Magnesium Direct Bilirubin AST ALT Alkaline Phosphatase Lactate Dehydrogenase Troponin T C-Reactive Protein Total Protein Albumin Prealbumin Triglycerides Cholesterol LDL Cholesterol Direct HDL Cholesterol 25-OH Vitamin D Total PTH Intact Urine pH Urine WBC (Auto) Urine Creatinine Urine Total Protein Fluid Total Protein Vancomycin Trough Rheumatoid Factor Complement C4 Miscellaneous Test Crossmatch 11/30/16 11/30/16 11/30/16 04:17 04:17 04:32 WBC 12.0 H RBC 2.80 L Hgb 7.8 L Hct 23.6 L MCV MCH MCHC RDW 16.6 H Plt Count Lymph % (Auto) [place] % (Auto) 11.3 H Lymph # [place] # 1.4 H Baso # Seg Neutrophils % Seg Neuts % (Manual) Lymphocytes % (Manual) Monocytes % (Manual) Eosinophils % (Manual) Basophils % (Manual) Nucleated RBC % Seg Neutrophils # 8.2 H Seg Neutrophils # Man Lymphocytes # (Manual) Monocytes # (Manual) Eosinophils # (Manual) Basophils # (Manual) PT INR Fibrinogen dRVVT Confirm Interp Factor V Activity POC ABG pH POC ABG pCO2 POC ABG pO2 ABG pO2 ABG HCO3 ABG Base Excess ABG Hemoglobin Oxyhemoglobin Sodium 169 H* D Potassium 5.1 H Chloride 121.5 H Carbon Dioxide BUN 34 H Creatinine 1.3 H D Glucose 133 H POC Glucose 131 H Lactic Acid Calcium 10.3 H Ionized Calcium Phosphorus Magnesium Direct Bilirubin AST ALT Alkaline Phosphatase Lactate Dehydrogenase Troponin T C-Reactive Protein Total Protein Albumin Prealbumin Triglycerides Cholesterol LDL Cholesterol Direct HDL Cholesterol 25-OH Vitamin D Total PTH Intact Urine pH Urine WBC (Auto) Urine Creatinine Urine Total Protein Fluid Total Protein Vancomycin Trough Rheumatoid Factor Complement C4 Miscellaneous Test Crossmatch 11/30/16 11/30/16 11/30/16 05:45 11:10 17:26 WBC RBC Hgb Hct MCV MCH MCHC RDW Plt Count Lymph % (Auto) [place] % (Auto) Lymph # [place] # Baso # Seg Neutrophils % Seg Neuts % (Manual) Lymphocytes % (Manual) Monocytes % (Manual) Eosinophils % (Manual) Basophils % (Manual) Nucleated RBC % Seg Neutrophils # Seg Neutrophils # Man Lymphocytes # (Manual) Monocytes # (Manual) Eosinophils # (Manual) Basophils # (Manual) PT INR Fibrinogen dRVVT Confirm Interp Factor V Activity POC ABG pH POC ABG pCO2 POC ABG pO2 ABG pO2 ABG HCO3 ABG Base Excess ABG Hemoglobin Oxyhemoglobin Sodium Potassium Chloride Carbon Dioxide BUN 45 H Creatinine 1.6 H Glucose 131 H POC Glucose 146 H 134 H Lactic Acid Calcium Ionized Calcium Phosphorus Magnesium Direct Bilirubin AST ALT Alkaline Phosphatase Lactate Dehydrogenase Troponin T C-Reactive Protein Total Protein Albumin Prealbumin Triglycerides Cholesterol LDL Cholesterol Direct HDL Cholesterol 25-OH Vitamin D Total PTH Intact Urine pH Urine WBC (Auto) Urine Creatinine Urine Total Protein Fluid Total Protein Vancomycin Trough Rheumatoid Factor Complement C4 Miscellaneous Test Crossmatch 11/30/16 12/01/16 12/01/16 23:35 00:06 03:35 WBC RBC Hgb Hct MCV MCH MCHC RDW Plt Count Lymph % (Auto) [place] % (Auto) Lymph # [place] # Baso # Seg Neutrophils % Seg Neuts % (Manual) Lymphocytes % (Manual) Monocytes % (Manual) Eosinophils % (Manual) Basophils % (Manual) Nucleated RBC % Seg Neutrophils # Seg Neutrophils # Man Lymphocytes # (Manual) Monocytes # (Manual) Eosinophils # (Manual) Basophils # (Manual) PT INR Fibrinogen dRVVT Confirm Interp Factor V Activity POC ABG pH POC ABG pCO2 POC ABG pO2 ABG pO2 ABG HCO3 ABG Base Excess ABG Hemoglobin 6.9 L Oxyhemoglobin Sodium Potassium Chloride Carbon Dioxide BUN 58 H Creatinine 1.8 H Glucose 146 H POC Glucose 151 H Lactic Acid Calcium Ionized Calcium Phosphorus Magnesium Direct Bilirubin AST ALT Alkaline Phosphatase Lactate Dehydrogenase Troponin T C-Reactive Protein Total Protein Albumin Prealbumin Triglycerides Cholesterol LDL Cholesterol Direct HDL Cholesterol 25-OH Vitamin D Total PTH Intact Urine pH Urine WBC (Auto) Urine Creatinine Urine Total Protein Fluid Total Protein Vancomycin Trough Rheumatoid Factor Complement C4 Miscellaneous Test Crossmatch 12/01/16 12/01/16 12/01/16 03:35 05:47 11:52 WBC 12.3 H RBC 2.82 L Hgb 7.8 L Hct 23.7 L MCV MCH MCHC RDW 16.7 H Plt Count Lymph % (Auto) [place] % (Auto) 9.8 H Lymph # [place] # 1.2 H Baso # Seg Neutrophils % Seg Neuts % (Manual) Lymphocytes % (Manual) Monocytes % (Manual) Eosinophils % (Manual) Basophils % (Manual) Nucleated RBC % Seg Neutrophils # 8.4 H Seg Neutrophils # Man Lymphocytes # (Manual) Monocytes # (Manual) Eosinophils # (Manual) Basophils # (Manual) PT INR Fibrinogen dRVVT Confirm Interp Factor V Activity POC ABG pH POC ABG pCO2 POC ABG pO2 ABG pO2 ABG HCO3 ABG Base Excess ABG Hemoglobin Oxyhemoglobin Sodium Potassium Chloride Carbon Dioxide BUN Creatinine Glucose POC Glucose 152 H 152 H Lactic Acid Calcium Ionized Calcium Phosphorus Magnesium Direct Bilirubin AST ALT Alkaline Phosphatase Lactate Dehydrogenase Troponin T C-Reactive Protein Total Protein Albumin Prealbumin Triglycerides Cholesterol LDL Cholesterol Direct HDL Cholesterol 25-OH Vitamin D Total PTH Intact Urine pH Urine WBC (Auto) Urine Creatinine Urine Total Protein Fluid Total Protein Vancomycin Trough Rheumatoid Factor Complement C4 Miscellaneous Test Crossmatch 12/01/16 12/01/16 12/02/16 17:40 23:41 05:00 WBC RBC Hgb Hct MCV MCH MCHC RDW Plt Count Lymph % (Auto) [place] % (Auto) Lymph # [place] # Baso # Seg Neutrophils % Seg Neuts % (Manual) Lymphocytes % (Manual) Monocytes % (Manual) Eosinophils % (Manual) Basophils % (Manual) Nucleated RBC % Seg Neutrophils # Seg Neutrophils # Man Lymphocytes # (Manual) Monocytes # (Manual) Eosinophils # (Manual) Basophils # (Manual) PT INR Fibrinogen dRVVT Confirm Interp Factor V Activity POC ABG pH POC ABG pCO2 POC ABG pO2 ABG pO2 ABG HCO3 ABG Base Excess ABG Hemoglobin Oxyhemoglobin Sodium Potassium Chloride Carbon Dioxide BUN 45 H Creatinine Glucose 115 H POC Glucose 140 H 144 H Lactic Acid Calcium Ionized Calcium Phosphorus Magnesium Direct Bilirubin AST ALT Alkaline Phosphatase Lactate Dehydrogenase Troponin T C-Reactive Protein Total Protein Albumin Prealbumin Triglycerides Cholesterol LDL Cholesterol Direct HDL Cholesterol 25-OH Vitamin D Total PTH Intact Urine pH Urine WBC (Auto) Urine Creatinine Urine Total Protein Fluid Total Protein Vancomycin Trough Rheumatoid Factor Complement C4 Miscellaneous Test Crossmatch 12/02/16 12/02/16 12/02/16 05:31 11:20 17:38 WBC RBC Hgb Hct MCV MCH MCHC RDW Plt Count Lymph % (Auto) [place] % (Auto) Lymph # [place] # Baso # Seg Neutrophils % Seg Neuts % (Manual) Lymphocytes % (Manual) Monocytes % (Manual) Eosinophils % (Manual) Basophils % (Manual) Nucleated RBC % Seg Neutrophils # Seg Neutrophils # Man Lymphocytes # (Manual) Monocytes # (Manual) Eosinophils # (Manual) Basophils # (Manual) PT INR Fibrinogen dRVVT Confirm Interp Factor V Activity POC ABG pH POC ABG pCO2 POC ABG pO2 ABG pO2 ABG HCO3 ABG Base Excess ABG Hemoglobin Oxyhemoglobin Sodium Potassium Chloride Carbon Dioxide BUN Creatinine Glucose POC Glucose 136 H 177 H 139 H Lactic Acid Calcium Ionized Calcium Phosphorus Magnesium Direct Bilirubin AST ALT Alkaline Phosphatase Lactate Dehydrogenase Troponin T C-Reactive Protein Total Protein Albumin Prealbumin Triglycerides Cholesterol LDL Cholesterol Direct HDL Cholesterol 25-OH Vitamin D Total PTH Intact Urine pH Urine WBC (Auto) Urine Creatinine Urine Total Protein Fluid Total Protein Vancomycin Trough Rheumatoid Factor Complement C4 Miscellaneous Test Crossmatch 12/02/16 12/03/16 12/03/16 23:43 04:00 04:00 WBC 20.4 H RBC 2.74 L Hgb 7.4 L Hct 23.6 L MCV MCH 27 L MCHC RDW 17.1 H Plt Count Lymph % (Auto) [place] % (Auto) Lymph # [place] # Baso # Seg Neutrophils % Seg Neuts % (Manual) 31.0 L Lymphocytes % (Manual) Monocytes % (Manual) Eosinophils % (Manual) Basophils % (Manual) Nucleated RBC % Seg Neutrophils # Seg Neutrophils # Man Lymphocytes # (Manual) Monocytes # (Manual) Eosinophils # (Manual) Basophils # (Manual) PT INR Fibrinogen dRVVT Confirm Interp Factor V Activity POC ABG pH POC ABG pCO2 POC ABG pO2 ABG pO2 ABG HCO3 ABG Base Excess ABG Hemoglobin Oxyhemoglobin Sodium Potassium Chloride Carbon Dioxide BUN 61 H Creatinine 1.6 H Glucose 119 H POC Glucose 158 H Lactic Acid Calcium Ionized Calcium Phosphorus Magnesium Direct Bilirubin AST ALT Alkaline Phosphatase Lactate Dehydrogenase Troponin T C-Reactive Protein Total Protein Albumin Prealbumin Triglycerides Cholesterol LDL Cholesterol Direct HDL Cholesterol 25-OH Vitamin D Total PTH Intact Urine pH Urine WBC (Auto) Urine Creatinine Urine Total Protein Fluid Total Protein Vancomycin Trough Rheumatoid Factor Complement C4 Miscellaneous Test Crossmatch 12/03/16 12/03/16 12/03/16 05:02 12:11 18:16 WBC RBC Hgb Hct MCV MCH MCHC RDW Plt Count Lymph % (Auto) [place] % (Auto) Lymph # [place] # Baso # Seg Neutrophils % Seg Neuts % (Manual) Lymphocytes % (Manual) Monocytes % (Manual) Eosinophils % (Manual) Basophils % (Manual) Nucleated RBC % Seg Neutrophils # Seg Neutrophils # Man Lymphocytes # (Manual) Monocytes # (Manual) Eosinophils # (Manual) Basophils # (Manual) PT INR Fibrinogen dRVVT Confirm Interp Factor V Activity POC ABG pH POC ABG pCO2 POC ABG pO2 ABG pO2 ABG HCO3 ABG Base Excess ABG Hemoglobin Oxyhemoglobin Sodium Potassium Chloride Carbon Dioxide BUN Creatinine Glucose POC Glucose 146 H 157 H 124 H Lactic Acid Calcium Ionized Calcium Phosphorus Magnesium Direct Bilirubin AST ALT Alkaline Phosphatase Lactate Dehydrogenase Troponin T C-Reactive Protein Total Protein Albumin Prealbumin Triglycerides Cholesterol LDL Cholesterol Direct HDL Cholesterol 25-OH Vitamin D Total PTH Intact Urine pH Urine WBC (Auto) Urine Creatinine Urine Total Protein Fluid Total Protein Vancomycin Trough Rheumatoid Factor Complement C4 Miscellaneous Test Crossmatch 12/03/16 12/04/16 12/04/16 23:41 04:00 04:45 WBC RBC Hgb Hct MCV MCH MCHC RDW Plt Count Lymph % (Auto) [place] % (Auto) Lymph # [place] # Baso # Seg Neutrophils % Seg Neuts % (Manual) Lymphocytes % (Manual) Monocytes % (Manual) Eosinophils % (Manual) Basophils % (Manual) Nucleated RBC % Seg Neutrophils # Seg Neutrophils # Man Lymphocytes # (Manual) Monocytes # (Manual) Eosinophils # (Manual) Basophils # (Manual) PT INR Fibrinogen dRVVT Confirm Interp Factor V Activity POC ABG pH POC ABG pCO2 POC ABG pO2 ABG pO2 ABG HCO3 ABG Base Excess ABG Hemoglobin Oxyhemoglobin Sodium Potassium Chloride Carbon Dioxide BUN 76 H Creatinine 1.6 H Glucose POC Glucose 130 H 136 H Lactic Acid Calcium Ionized Calcium Phosphorus Magnesium Direct Bilirubin AST ALT Alkaline Phosphatase 155 H Lactate Dehydrogenase Troponin T C-Reactive Protein Total Protein 5.5 L Albumin 1.5 L Prealbumin Triglycerides Cholesterol LDL Cholesterol Direct HDL Cholesterol 25-OH Vitamin D Total PTH Intact Urine pH Urine WBC (Auto) Urine Creatinine Urine Total Protein Fluid Total Protein Vancomycin Trough Rheumatoid Factor Complement C4 Miscellaneous Test Crossmatch 12/04/16 12/04/16 12/05/16 12:08 17:23 00:10 WBC RBC Hgb Hct MCV MCH MCHC RDW Plt Count Lymph % (Auto) [place] % (Auto) Lymph # [place] # Baso # Seg Neutrophils % Seg Neuts % (Manual) Lymphocytes % (Manual) Monocytes % (Manual) Eosinophils % (Manual) Basophils % (Manual) Nucleated RBC % Seg Neutrophils # Seg Neutrophils # Man Lymphocytes # (Manual) Monocytes # (Manual) Eosinophils # (Manual) Basophils # (Manual) PT INR Fibrinogen dRVVT Confirm Interp Factor V Activity POC ABG pH POC ABG pCO2 POC ABG pO2 ABG pO2 ABG HCO3 ABG Base Excess ABG Hemoglobin Oxyhemoglobin Sodium Potassium Chloride Carbon Dioxide BUN Creatinine Glucose POC Glucose 114 H 129 H 124 H Lactic Acid Calcium Ionized Calcium Phosphorus Magnesium Direct Bilirubin AST ALT Alkaline Phosphatase Lactate Dehydrogenase Troponin T C-Reactive Protein Total Protein Albumin Prealbumin Triglycerides Cholesterol LDL Cholesterol Direct HDL Cholesterol 25-OH Vitamin D Total PTH Intact Urine pH Urine WBC (Auto) Urine Creatinine Urine Total Protein Fluid Total Protein Vancomycin Trough Rheumatoid Factor Complement C4 Miscellaneous Test Crossmatch 12/05/16 12/05/16 12/05/16 05:00 05:00 05:18 WBC RBC Hgb Hct MCV MCH MCHC RDW Plt Count Lymph % (Auto) [place] % (Auto) Lymph # [place] # Baso # Seg Neutrophils % Seg Neuts % (Manual) Lymphocytes % (Manual) Monocytes % (Manual) Eosinophils % (Manual) Basophils % (Manual) Nucleated RBC % Seg Neutrophils # Seg Neutrophils # Man Lymphocytes # (Manual) Monocytes # (Manual) Eosinophils # (Manual) Basophils # (Manual) PT INR Fibrinogen dRVVT Confirm Interp Factor V Activity POC ABG pH POC ABG pCO2 POC ABG pO2 ABG pO2 ABG HCO3 ABG Base Excess ABG Hemoglobin Oxyhemoglobin Sodium Potassium Chloride Carbon Dioxide 21 L BUN 85 H Creatinine 1.9 H Glucose 131 H POC Glucose 154 H Lactic Acid Calcium Ionized Calcium Phosphorus Magnesium Direct Bilirubin AST ALT Alkaline Phosphatase Lactate Dehydrogenase Troponin T C-Reactive Protein 19.30 H Total Protein Albumin Prealbumin Triglycerides Cholesterol LDL Cholesterol Direct HDL Cholesterol 25-OH Vitamin D Total PTH Intact Urine pH Urine WBC (Auto) Urine Creatinine Urine Total Protein Fluid Total Protein Vancomycin Trough Rheumatoid Factor Complement C4 Miscellaneous Test Crossmatch 12/05/16 12/05/16 12/05/16 11:43 17:46 23:25 WBC RBC Hgb Hct MCV MCH MCHC RDW Plt Count Lymph % (Auto) [place] % (Auto) Lymph # [place] # Baso # Seg Neutrophils % Seg Neuts % (Manual) Lymphocytes % (Manual) Monocytes % (Manual) Eosinophils % (Manual) Basophils % (Manual) Nucleated RBC % Seg Neutrophils # Seg Neutrophils # Man Lymphocytes # (Manual) Monocytes # (Manual) Eosinophils # (Manual) Basophils # (Manual) PT INR Fibrinogen dRVVT Confirm Interp Factor V Activity POC ABG pH POC ABG pCO2 POC ABG pO2 ABG pO2 ABG HCO3 ABG Base Excess ABG Hemoglobin Oxyhemoglobin Sodium Potassium Chloride Carbon Dioxide BUN Creatinine Glucose POC Glucose 117 H 113 H 111 H Lactic Acid Calcium Ionized Calcium Phosphorus Magnesium Direct Bilirubin AST ALT Alkaline Phosphatase Lactate Dehydrogenase Troponin T C-Reactive Protein Total Protein Albumin Prealbumin Triglycerides Cholesterol LDL Cholesterol Direct HDL Cholesterol 25-OH Vitamin D Total PTH Intact Urine pH Urine WBC (Auto) Urine Creatinine Urine Total Protein Fluid Total Protein Vancomycin Trough Rheumatoid Factor Complement C4 Miscellaneous Test Crossmatch 12/05/16 12/06/16 12/06/16 Unknown 04:58 06:00 WBC RBC Hgb Hct MCV MCH MCHC RDW Plt Count Lymph % (Auto) [place] % (Auto) Lymph # [place] # Baso # Seg Neutrophils % Seg Neuts % (Manual) Lymphocytes % (Manual) Monocytes % (Manual) Eosinophils % (Manual) Basophils % (Manual) Nucleated RBC % Seg Neutrophils # Seg Neutrophils # Man Lymphocytes # (Manual) Monocytes # (Manual) Eosinophils # (Manual) Basophils # (Manual) PT INR Fibrinogen dRVVT Confirm Interp Factor V Activity POC ABG pH POC ABG pCO2 POC ABG pO2 ABG pO2 75.2 L ABG HCO3 ABG Base Excess -3.4 L ABG Hemoglobin 7.4 L Oxyhemoglobin 94.5 L Sodium Potassium Chloride Carbon Dioxide 20 L BUN 99 H Creatinine 2.1 H Glucose 126 H POC Glucose 145 H Lactic Acid Calcium Ionized Calcium Phosphorus 4.80 H Magnesium Direct Bilirubin AST ALT Alkaline Phosphatase Lactate Dehydrogenase Troponin T C-Reactive Protein Total Protein Albumin Prealbumin Triglycerides Cholesterol LDL Cholesterol Direct HDL Cholesterol 25-OH Vitamin D Total PTH Intact Urine pH Urine WBC (Auto) Urine Creatinine Urine Total Protein Fluid Total Protein Vancomycin Trough Rheumatoid Factor Complement C4 Miscellaneous Test Crossmatch 12/06/16 12/06/16 12/06/16 06:46 11:54 17:55 WBC RBC Hgb 8.3 L Hct 26.4 L MCV MCH MCHC RDW Plt Count Lymph % (Auto) [place] % (Auto) Lymph # [place] # Baso # Seg Neutrophils % Seg Neuts % (Manual) Lymphocytes % (Manual) Monocytes % (Manual) Eosinophils % (Manual) Basophils % (Manual) Nucleated RBC % Seg Neutrophils # Seg Neutrophils # Man Lymphocytes # (Manual) Monocytes # (Manual) Eosinophils # (Manual) Basophils # (Manual) PT INR Fibrinogen dRVVT Confirm Interp Factor V Activity POC ABG pH POC ABG pCO2 POC ABG pO2 ABG pO2 ABG HCO3 ABG Base Excess ABG Hemoglobin Oxyhemoglobin Sodium Potassium Chloride Carbon Dioxide BUN Creatinine Glucose POC Glucose 126 H 157 H Lactic Acid Calcium Ionized Calcium Phosphorus Magnesium Direct Bilirubin AST ALT Alkaline Phosphatase Lactate Dehydrogenase Troponin T C-Reactive Protein Total Protein Albumin Prealbumin Triglycerides Cholesterol LDL Cholesterol Direct HDL Cholesterol 25-OH Vitamin D Total PTH Intact Urine pH Urine WBC (Auto) Urine Creatinine Urine Total Protein Fluid Total Protein Vancomycin Trough Rheumatoid Factor Complement C4 Miscellaneous Test Crossmatch 12/06/16 12/07/16 12/07/16 23:59 05:34 06:30 WBC RBC Hgb Hct MCV MCH MCHC RDW Plt Count Lymph % (Auto) [place] % (Auto) Lymph # [place] # Baso # Seg Neutrophils % Seg Neuts % (Manual) Lymphocytes % (Manual) Monocytes % (Manual) Eosinophils % (Manual) Basophils % (Manual) Nucleated RBC % Seg Neutrophils # Seg Neutrophils # Man Lymphocytes # (Manual) Monocytes # (Manual) Eosinophils # (Manual) Basophils # (Manual) PT INR Fibrinogen dRVVT Confirm Interp Factor V Activity POC ABG pH POC ABG pCO2 POC ABG pO2 ABG pO2 ABG HCO3 ABG Base Excess ABG Hemoglobin Oxyhemoglobin Sodium Potassium Chloride Carbon Dioxide BUN 67 H Creatinine 1.4 H Glucose 126 H POC Glucose 129 H 129 H Lactic Acid Calcium Ionized Calcium Phosphorus Magnesium Direct Bilirubin AST ALT Alkaline Phosphatase Lactate Dehydrogenase Troponin T C-Reactive Protein Total Protein Albumin Prealbumin Triglycerides Cholesterol LDL Cholesterol Direct HDL Cholesterol 25-OH Vitamin D Total PTH Intact Urine pH Urine WBC (Auto) Urine Creatinine Urine Total Protein Fluid Total Protein Vancomycin Trough Rheumatoid Factor Complement C4 Miscellaneous Test Crossmatch 12/07/16 12/07/16 12/07/16 06:30 08:00 09:45 WBC 18.8 H RBC 2.52 L Hgb 6.9 L 6.8 L Hct 21.2 L 21.1 L MCV MCH 27 L MCHC RDW 18.0 H Plt Count Lymph % (Auto) [place] % (Auto) 9.9 H Lymph # [place] # 1.9 H Baso # Seg Neutrophils % 71.8 H Seg Neuts % (Manual) Lymphocytes % (Manual) Monocytes % (Manual) Eosinophils % (Manual) Basophils % (Manual) Nucleated RBC % Seg Neutrophils # 13.5 H Seg Neutrophils # Man Lymphocytes # (Manual) Monocytes # (Manual) Eosinophils # (Manual) Basophils # (Manual) PT INR Fibrinogen dRVVT Confirm Interp Factor V Activity POC ABG pH POC ABG pCO2 POC ABG pO2 ABG pO2 ABG HCO3 ABG Base Excess ABG Hemoglobin Oxyhemoglobin Sodium Potassium Chloride Carbon Dioxide BUN Creatinine Glucose POC Glucose Lactic Acid Calcium Ionized Calcium Phosphorus Magnesium Direct Bilirubin AST ALT Alkaline Phosphatase Lactate Dehydrogenase Troponin T C-Reactive Protein Total Protein Albumin Prealbumin Triglycerides Cholesterol LDL Cholesterol Direct HDL Cholesterol 25-OH Vitamin D Total PTH Intact Urine pH Urine WBC (Auto) Urine Creatinine Urine Total Protein Fluid Total Protein Vancomycin Trough Rheumatoid Factor Complement C4 Miscellaneous Test Crossmatch See Detail 12/07/16 12/07/16 12/07/16 11:44 18:19 23:59 WBC RBC Hgb Hct MCV MCH MCHC RDW Plt Count Lymph % (Auto) [place] % (Auto) Lymph # [place] # Baso # Seg Neutrophils % Seg Neuts % (Manual) Lymphocytes % (Manual) Monocytes % (Manual) Eosinophils % (Manual) Basophils % (Manual) Nucleated RBC % Seg Neutrophils # Seg Neutrophils # Man Lymphocytes # (Manual) Monocytes # (Manual) Eosinophils # (Manual) Basophils # (Manual) PT INR Fibrinogen dRVVT Confirm Interp Factor V Activity POC ABG pH POC ABG pCO2 POC ABG pO2 ABG pO2 ABG HCO3 ABG Base Excess ABG Hemoglobin Oxyhemoglobin Sodium Potassium Chloride Carbon Dioxide BUN Creatinine Glucose POC Glucose 137 H 138 H 133 H Lactic Acid Calcium Ionized Calcium Phosphorus Magnesium Direct Bilirubin AST ALT Alkaline Phosphatase Lactate Dehydrogenase Troponin T C-Reactive Protein Total Protein Albumin Prealbumin Triglycerides Cholesterol LDL Cholesterol Direct HDL Cholesterol 25-OH Vitamin D Total PTH Intact Urine pH Urine WBC (Auto) Urine Creatinine Urine Total Protein Fluid Total Protein Vancomycin Trough Rheumatoid Factor Complement C4 Miscellaneous Test Crossmatch 12/08/16 12/08/16 12/08/16 05:25 05:30 05:30 WBC 23.8 H RBC 2.88 L Hgb 8.1 L Hct 24.3 L MCV MCH MCHC RDW 16.7 H Plt Count Lymph % (Auto) [place] % (Auto) Lymph # [place] # Baso # Seg Neutrophils % Seg Neuts % (Manual) 76.0 H Lymphocytes % (Manual) 9.0 L Monocytes % (Manual) 9.0 H Eosinophils % (Manual) Basophils % (Manual) Nucleated RBC % Seg Neutrophils # Seg Neutrophils # Man 18.1 H Lymphocytes # (Manual) Monocytes # (Manual) 2.1 H Eosinophils # (Manual) Basophils # (Manual) PT INR Fibrinogen dRVVT Confirm Interp Factor V Activity POC ABG pH POC ABG pCO2 POC ABG pO2 ABG pO2 ABG HCO3 ABG Base Excess ABG Hemoglobin Oxyhemoglobin Sodium Potassium Chloride Carbon Dioxide 21 L BUN 76 H Creatinine 1.6 H Glucose 133 H POC Glucose 177 H Lactic Acid Calcium Ionized Calcium Phosphorus Magnesium Direct Bilirubin AST ALT Alkaline Phosphatase Lactate Dehydrogenase Troponin T C-Reactive Protein Total Protein Albumin Prealbumin Triglycerides Cholesterol LDL Cholesterol Direct HDL Cholesterol 25-OH Vitamin D Total PTH Intact Urine pH Urine WBC (Auto) Urine Creatinine Urine Total Protein Fluid Total Protein Vancomycin Trough Rheumatoid Factor Complement C4 Miscellaneous Test Crossmatch 12/08/16 12/08/16 12/09/16 11:45 18:00 00:00 WBC RBC Hgb Hct MCV MCH MCHC RDW Plt Count Lymph % (Auto) [place] % (Auto) Lymph # [place] # Baso # Seg Neutrophils % Seg Neuts % (Manual) Lymphocytes % (Manual) Monocytes % (Manual) Eosinophils % (Manual) Basophils % (Manual) Nucleated RBC % Seg Neutrophils # Seg Neutrophils # Man Lymphocytes # (Manual) Monocytes # (Manual) Eosinophils # (Manual) Basophils # (Manual) PT INR Fibrinogen dRVVT Confirm Interp Factor V Activity POC ABG pH POC ABG pCO2 POC ABG pO2 ABG pO2 ABG HCO3 ABG Base Excess ABG Hemoglobin Oxyhemoglobin Sodium Potassium Chloride Carbon Dioxide BUN Creatinine Glucose POC Glucose 163 H 123 H 137 H Lactic Acid Calcium Ionized Calcium Phosphorus Magnesium Direct Bilirubin AST ALT Alkaline Phosphatase Lactate Dehydrogenase Troponin T C-Reactive Protein Total Protein Albumin Prealbumin Triglycerides Cholesterol LDL Cholesterol Direct HDL Cholesterol 25-OH Vitamin D Total PTH Intact Urine pH Urine WBC (Auto) Urine Creatinine Urine Total Protein Fluid Total Protein Vancomycin Trough Rheumatoid Factor Complement C4 Miscellaneous Test Crossmatch 12/09/16 12/09/16 12/09/16 05:34 06:00 06:00 WBC 15.5 H RBC 2.87 L Hgb 8.0 L Hct 24.2 L MCV MCH MCHC RDW 17.2 H Plt Count Lymph % (Auto) [place] % (Auto) 11.6 H Lymph # [place] # 1.8 H Baso # Seg Neutrophils % 70.8 H Seg Neuts % (Manual) Lymphocytes % (Manual) Monocytes % (Manual) Eosinophils % (Manual) Basophils % (Manual) Nucleated RBC % Seg Neutrophils # 11.0 H Seg Neutrophils # Man Lymphocytes # (Manual) Monocytes # (Manual) Eosinophils # (Manual) Basophils # (Manual) PT INR Fibrinogen dRVVT Confirm Interp Factor V Activity POC ABG pH POC ABG pCO2 POC ABG pO2 ABG pO2 ABG HCO3 ABG Base Excess ABG Hemoglobin Oxyhemoglobin Sodium Potassium Chloride Carbon Dioxide BUN 51 H Creatinine Glucose 117 H POC Glucose 136 H Lactic Acid Calcium Ionized Calcium Phosphorus Magnesium Direct Bilirubin AST ALT Alkaline Phosphatase Lactate Dehydrogenase Troponin T C-Reactive Protein Total Protein Albumin Prealbumin Triglycerides Cholesterol LDL Cholesterol Direct HDL Cholesterol 25-OH Vitamin D Total PTH Intact Urine pH Urine WBC (Auto) Urine Creatinine Urine Total Protein Fluid Total Protein Vancomycin Trough Rheumatoid Factor Complement C4 Miscellaneous Test Crossmatch 12/09/16 12/09/16 12/09/16 12:29 17:52 23:10 WBC RBC Hgb Hct MCV MCH MCHC RDW Plt Count Lymph % (Auto) [place] % (Auto) Lymph # [place] # Baso # Seg Neutrophils % Seg Neuts % (Manual) Lymphocytes % (Manual) Monocytes % (Manual) Eosinophils % (Manual) Basophils % (Manual) Nucleated RBC % Seg Neutrophils # Seg Neutrophils # Man Lymphocytes # (Manual) Monocytes # (Manual) Eosinophils # (Manual) Basophils # (Manual) PT INR Fibrinogen dRVVT Confirm Interp Factor V Activity POC ABG pH POC ABG pCO2 POC ABG pO2 ABG pO2 ABG HCO3 ABG Base Excess ABG Hemoglobin Oxyhemoglobin Sodium Potassium Chloride Carbon Dioxide BUN Creatinine Glucose POC Glucose 139 H 140 H 129 H Lactic Acid Calcium Ionized Calcium Phosphorus Magnesium Direct Bilirubin AST ALT Alkaline Phosphatase Lactate Dehydrogenase Troponin T C-Reactive Protein Total Protein Albumin Prealbumin Triglycerides Cholesterol LDL Cholesterol Direct HDL Cholesterol 25-OH Vitamin D Total PTH Intact Urine pH Urine WBC (Auto) Urine Creatinine Urine Total Protein Fluid Total Protein Vancomycin Trough Rheumatoid Factor Complement C4 Miscellaneous Test Crossmatch 12/10/16 12/10/16 12/10/16 05:00 05:00 06:54 WBC 15.7 H RBC 2.87 L Hgb 8.2 L Hct 24.4 L MCV MCH MCHC RDW 17.2 H Plt Count Lymph % (Auto) [place] % (Auto) 8.3 H Lymph # [place] # 1.3 H Baso # Seg Neutrophils % 72.8 H Seg Neuts % (Manual) Lymphocytes % (Manual) Monocytes % (Manual) Eosinophils % (Manual) Basophils % (Manual) Nucleated RBC % Seg Neutrophils # 11.4 H Seg Neutrophils # Man Lymphocytes # (Manual) Monocytes # (Manual) Eosinophils # (Manual) Basophils # (Manual) PT INR Fibrinogen dRVVT Confirm Interp Factor V Activity POC ABG pH POC ABG pCO2 POC ABG pO2 ABG pO2 ABG HCO3 ABG Base Excess ABG Hemoglobin Oxyhemoglobin Sodium Potassium Chloride Carbon Dioxide BUN 64 H Creatinine 1.4 H Glucose 134 H POC Glucose 154 H Lactic Acid Calcium Ionized Calcium Phosphorus Magnesium Direct Bilirubin AST ALT Alkaline Phosphatase Lactate Dehydrogenase Troponin T C-Reactive Protein Total Protein Albumin Prealbumin Triglycerides Cholesterol LDL Cholesterol Direct HDL Cholesterol 25-OH Vitamin D Total PTH Intact Urine pH Urine WBC (Auto) Urine Creatinine Urine Total Protein Fluid Total Protein Vancomycin Trough Rheumatoid Factor Complement C4 Miscellaneous Test Crossmatch 12/10/16 12/10/16 12/10/16 11:58 17:29 23:52 WBC RBC Hgb Hct MCV MCH MCHC RDW Plt Count Lymph % (Auto) [place] % (Auto) Lymph # [place] # Baso # Seg Neutrophils % Seg Neuts % (Manual) Lymphocytes % (Manual) Monocytes % (Manual) Eosinophils % (Manual) Basophils % (Manual) Nucleated RBC % Seg Neutrophils # Seg Neutrophils # Man Lymphocytes # (Manual) Monocytes # (Manual) Eosinophils # (Manual) Basophils # (Manual) PT INR Fibrinogen dRVVT Confirm Interp Factor V Activity POC ABG pH POC ABG pCO2 POC ABG pO2 ABG pO2 ABG HCO3 ABG Base Excess ABG Hemoglobin Oxyhemoglobin Sodium Potassium Chloride Carbon Dioxide BUN Creatinine Glucose POC Glucose 144 H 163 H 125 H Lactic Acid Calcium Ionized Calcium Phosphorus Magnesium Direct Bilirubin AST ALT Alkaline Phosphatase Lactate Dehydrogenase Troponin T C-Reactive Protein Total Protein Albumin Prealbumin Triglycerides Cholesterol LDL Cholesterol Direct HDL Cholesterol 25-OH Vitamin D Total PTH Intact Urine pH Urine WBC (Auto) Urine Creatinine Urine Total Protein Fluid Total Protein Vancomycin Trough Rheumatoid Factor Complement C4 Miscellaneous Test Crossmatch 12/11/16 12/11/16 12/11/16 05:38 06:30 06:30 WBC 14.4 H RBC 2.76 L Hgb 7.7 L Hct 23.4 L MCV MCH MCHC RDW 17.2 H Plt Count Lymph % (Auto) [place] % (Auto) 8.8 H Lymph # [place] # 1.3 H Baso # Seg Neutrophils % 72.5 H Seg Neuts % (Manual) Lymphocytes % (Manual) Monocytes % (Manual) Eosinophils % (Manual) Basophils % (Manual) Nucleated RBC % Seg Neutrophils # 10.5 H Seg Neutrophils # Man Lymphocytes # (Manual) Monocytes # (Manual) Eosinophils # (Manual) Basophils # (Manual) PT INR Fibrinogen dRVVT Confirm Interp Factor V Activity POC ABG pH POC ABG pCO2 POC ABG pO2 ABG pO2 ABG HCO3 ABG Base Excess ABG Hemoglobin Oxyhemoglobin Sodium Potassium Chloride Carbon Dioxide BUN 43 H Creatinine Glucose 124 H POC Glucose 141 H Lactic Acid Calcium 8.3 L Ionized Calcium Phosphorus Magnesium 1.60 L Direct Bilirubin AST ALT Alkaline Phosphatase Lactate Dehydrogenase Troponin T C-Reactive Protein Total Protein Albumin Prealbumin Triglycerides Cholesterol LDL Cholesterol Direct HDL Cholesterol 25-OH Vitamin D Total PTH Intact Urine pH Urine WBC (Auto) Urine Creatinine Urine Total Protein Fluid Total Protein Vancomycin Trough Rheumatoid Factor Complement C4 Miscellaneous Test Crossmatch 12/11/16 12/11/16 12/11/16 11:15 17:59 23:48 WBC RBC Hgb Hct MCV MCH MCHC RDW Plt Count Lymph % (Auto) [place] % (Auto) Lymph # [place] # Baso # Seg Neutrophils % Seg Neuts % (Manual) Lymphocytes % (Manual) Monocytes % (Manual) Eosinophils % (Manual) Basophils % (Manual) Nucleated RBC % Seg Neutrophils # Seg Neutrophils # Man Lymphocytes # (Manual) Monocytes # (Manual) Eosinophils # (Manual) Basophils # (Manual) PT INR Fibrinogen dRVVT Confirm Interp Factor V Activity POC ABG pH POC ABG pCO2 POC ABG pO2 ABG pO2 ABG HCO3 ABG Base Excess ABG Hemoglobin Oxyhemoglobin Sodium Potassium Chloride Carbon Dioxide BUN Creatinine Glucose POC Glucose 188 H 106 H 119 H Lactic Acid Calcium Ionized Calcium Phosphorus Magnesium Direct Bilirubin AST ALT Alkaline Phosphatase Lactate Dehydrogenase Troponin T C-Reactive Protein Total Protein Albumin Prealbumin Triglycerides Cholesterol LDL Cholesterol Direct HDL Cholesterol 25-OH Vitamin D Total PTH Intact Urine pH Urine WBC (Auto) Urine Creatinine Urine Total Protein Fluid Total Protein Vancomycin Trough Rheumatoid Factor Complement C4 Miscellaneous Test Crossmatch 12/12/16 12/12/16 12/12/16 05:00 06:01 12:20 WBC 16.7 H RBC 2.87 L Hgb 8.0 L Hct 24.2 L MCV MCH MCHC RDW 17.6 H Plt Count Lymph % (Auto) [place] % (Auto) Lymph # [place] # 1.2 H Baso # Seg Neutrophils % 75.3 H Seg Neuts % (Manual) Lymphocytes % (Manual) Monocytes % (Manual) Eosinophils % (Manual) Basophils % (Manual) Nucleated RBC % Seg Neutrophils # 12.6 H Seg Neutrophils # Man Lymphocytes # (Manual) Monocytes # (Manual) Eosinophils # (Manual) Basophils # (Manual) PT INR Fibrinogen dRVVT Confirm Interp Factor V Activity POC ABG pH POC ABG pCO2 POC ABG pO2 ABG pO2 ABG HCO3 ABG Base Excess ABG Hemoglobin Oxyhemoglobin Sodium Potassium Chloride Carbon Dioxide BUN Creatinine Glucose POC Glucose 134 H 149 H Lactic Acid Calcium Ionized Calcium Phosphorus Magnesium Direct Bilirubin AST ALT Alkaline Phosphatase Lactate Dehydrogenase Troponin T C-Reactive Protein Total Protein Albumin Prealbumin Triglycerides Cholesterol LDL Cholesterol Direct HDL Cholesterol 25-OH Vitamin D Total PTH Intact Urine pH Urine WBC (Auto) Urine Creatinine Urine Total Protein Fluid Total Protein Vancomycin Trough Rheumatoid Factor Complement C4 Miscellaneous Test Crossmatch 12/12/16 12/12/16 12/12/16 17:38 23:01 Unknown WBC RBC Hgb Hct MCV MCH MCHC RDW Plt Count Lymph % (Auto) [place] % (Auto) Lymph # [place] # Baso # Seg Neutrophils % Seg Neuts % (Manual) Lymphocytes % (Manual) Monocytes % (Manual) Eosinophils % (Manual) Basophils % (Manual) Nucleated RBC % Seg Neutrophils # Seg Neutrophils # Man Lymphocytes # (Manual) Monocytes # (Manual) Eosinophils # (Manual) Basophils # (Manual) PT INR Fibrinogen dRVVT Confirm Interp Factor V Activity POC ABG pH POC ABG pCO2 POC ABG pO2 ABG pO2 ABG HCO3 ABG Base Excess ABG Hemoglobin Oxyhemoglobin Sodium Potassium Chloride Carbon Dioxide BUN 60 H Creatinine 1.3 H Glucose 126 H POC Glucose 127 H 144 H Lactic Acid Calcium Ionized Calcium Phosphorus Magnesium Direct Bilirubin AST ALT Alkaline Phosphatase Lactate Dehydrogenase Troponin T C-Reactive Protein Total Protein Albumin Prealbumin Triglycerides Cholesterol LDL Cholesterol Direct HDL Cholesterol 25-OH Vitamin D Total PTH Intact Urine pH Urine WBC (Auto) Urine Creatinine Urine Total Protein Fluid Total Protein Vancomycin Trough Rheumatoid Factor Complement C4 Miscellaneous Test Crossmatch 12/13/16 12/13/16 12/13/16 04:00 04:00 05:19 WBC 18.7 H RBC 2.89 L Hgb 8.3 L Hct 24.6 L MCV MCH MCHC RDW 17.5 H Plt Count Lymph % (Auto) [place] % (Auto) Lymph # [place] # 1.3 H Baso # Seg Neutrophils % 71.5 H Seg Neuts % (Manual) Lymphocytes % (Manual) Monocytes % (Manual) Eosinophils % (Manual) Basophils % (Manual) Nucleated RBC % Seg Neutrophils # 13.4 H Seg Neutrophils # Man Lymphocytes # (Manual) Monocytes # (Manual) Eosinophils # (Manual) Basophils # (Manual) PT INR Fibrinogen dRVVT Confirm Interp Factor V Activity POC ABG pH POC ABG pCO2 POC ABG pO2 ABG pO2 ABG HCO3 ABG Base Excess ABG Hemoglobin Oxyhemoglobin Sodium Potassium Chloride Carbon Dioxide BUN 73 H Creatinine 1.5 H Glucose 141 H POC Glucose 171 H Lactic Acid Calcium Ionized Calcium Phosphorus Magnesium Direct Bilirubin AST ALT Alkaline Phosphatase Lactate Dehydrogenase Troponin T C-Reactive Protein Total Protein Albumin Prealbumin Triglycerides Cholesterol LDL Cholesterol Direct HDL Cholesterol 25-OH Vitamin D Total PTH Intact Urine pH Urine WBC (Auto) Urine Creatinine Urine Total Protein Fluid Total Protein Vancomycin Trough Rheumatoid Factor Complement C4 Miscellaneous Test Crossmatch 12/13/16 12/13/16 12/14/16 12:28 16:48 00:01 WBC RBC Hgb Hct MCV MCH MCHC RDW Plt Count Lymph % (Auto) [place] % (Auto) Lymph # [place] # Baso # Seg Neutrophils % Seg Neuts % (Manual) Lymphocytes % (Manual) Monocytes % (Manual) Eosinophils % (Manual) Basophils % (Manual) Nucleated RBC % Seg Neutrophils # Seg Neutrophils # Man Lymphocytes # (Manual) Monocytes # (Manual) Eosinophils # (Manual) Basophils # (Manual) PT INR Fibrinogen dRVVT Confirm Interp Factor V Activity POC ABG pH POC ABG pCO2 POC ABG pO2 ABG pO2 ABG HCO3 ABG Base Excess ABG Hemoglobin Oxyhemoglobin Sodium Potassium Chloride Carbon Dioxide BUN Creatinine Glucose POC Glucose 206 H 173 H 139 H Lactic Acid Calcium Ionized Calcium Phosphorus Magnesium Direct Bilirubin AST ALT Alkaline Phosphatase Lactate Dehydrogenase Troponin T C-Reactive Protein Total Protein Albumin Prealbumin Triglycerides Cholesterol LDL Cholesterol Direct HDL Cholesterol 25-OH Vitamin D Total PTH Intact Urine pH Urine WBC (Auto) Urine Creatinine Urine Total Protein Fluid Total Protein Vancomycin Trough Rheumatoid Factor Complement C4 Miscellaneous Test Crossmatch 12/14/16 12/14/16 12/14/16 05:16 06:10 11:17 WBC RBC Hgb Hct MCV MCH MCHC RDW Plt Count Lymph % (Auto) [place] % (Auto) Lymph # [place] # Baso # Seg Neutrophils % Seg Neuts % (Manual) Lymphocytes % (Manual) Monocytes % (Manual) Eosinophils % (Manual) Basophils % (Manual) Nucleated RBC % Seg Neutrophils # Seg Neutrophils # Man Lymphocytes # (Manual) Monocytes # (Manual) Eosinophils # (Manual) Basophils # (Manual) PT INR Fibrinogen dRVVT Confirm Interp Factor V Activity POC ABG pH POC ABG pCO2 POC ABG pO2 ABG pO2 ABG HCO3 ABG Base Excess ABG Hemoglobin Oxyhemoglobin Sodium Potassium Chloride Carbon Dioxide BUN 57 H Creatinine 1.4 H Glucose 135 H POC Glucose 158 H 137 H Lactic Acid Calcium Ionized Calcium Phosphorus Magnesium Direct Bilirubin AST ALT Alkaline Phosphatase Lactate Dehydrogenase Troponin T C-Reactive Protein Total Protein Albumin Prealbumin Triglycerides Cholesterol LDL Cholesterol Direct HDL Cholesterol 25-OH Vitamin D Total PTH Intact Urine pH Urine WBC (Auto) Urine Creatinine Urine Total Protein Fluid Total Protein Vancomycin Trough Rheumatoid Factor Complement C4 Miscellaneous Test Crossmatch 12/14/16 12/14/16 12/15/16 17:52 23:27 04:00 WBC RBC Hgb Hct MCV MCH MCHC RDW Plt Count Lymph % (Auto) [place] % (Auto) Lymph # [place] # Baso # Seg Neutrophils % Seg Neuts % (Manual) Lymphocytes % (Manual) Monocytes % (Manual) Eosinophils % (Manual) Basophils % (Manual) Nucleated RBC % Seg Neutrophils # Seg Neutrophils # Man Lymphocytes # (Manual) Monocytes # (Manual) Eosinophils # (Manual) Basophils # (Manual) PT INR Fibrinogen dRVVT Confirm Interp Factor V Activity POC ABG pH POC ABG pCO2 POC ABG pO2 ABG pO2 ABG HCO3 ABG Base Excess ABG Hemoglobin Oxyhemoglobin Sodium Potassium Chloride 97.9 L Carbon Dioxide BUN 75 H Creatinine 1.6 H Glucose 122 H POC Glucose 149 H 163 H Lactic Acid Calcium Ionized Calcium Phosphorus 5.20 H Magnesium Direct Bilirubin AST ALT Alkaline Phosphatase Lactate Dehydrogenase Troponin T C-Reactive Protein Total Protein Albumin Prealbumin Triglycerides Cholesterol LDL Cholesterol Direct HDL Cholesterol 25-OH Vitamin D Total PTH Intact Urine pH Urine WBC (Auto) Urine Creatinine Urine Total Protein Fluid Total Protein Vancomycin Trough Rheumatoid Factor Complement C4 Miscellaneous Test Crossmatch 12/15/16 12/15/16 12/15/16 05:50 11:24 17:01 WBC RBC Hgb Hct MCV MCH MCHC RDW Plt Count Lymph % (Auto) [place] % (Auto) Lymph # [place] # Baso # Seg Neutrophils % Seg Neuts % (Manual) Lymphocytes % (Manual) Monocytes % (Manual) Eosinophils % (Manual) Basophils % (Manual) Nucleated RBC % Seg Neutrophils # Seg Neutrophils # Man Lymphocytes # (Manual) Monocytes # (Manual) Eosinophils # (Manual) Basophils # (Manual) PT INR Fibrinogen dRVVT Confirm Interp Factor V Activity POC ABG pH POC ABG pCO2 POC ABG pO2 ABG pO2 ABG HCO3 ABG Base Excess ABG Hemoglobin Oxyhemoglobin Sodium Potassium Chloride Carbon Dioxide BUN Creatinine Glucose POC Glucose 150 H 146 H 167 H Lactic Acid Calcium Ionized Calcium Phosphorus Magnesium Direct Bilirubin AST ALT Alkaline Phosphatase Lactate Dehydrogenase Troponin T C-Reactive Protein Total Protein Albumin Prealbumin Triglycerides Cholesterol LDL Cholesterol Direct HDL Cholesterol 25-OH Vitamin D Total PTH Intact Urine pH Urine WBC (Auto) Urine Creatinine Urine Total Protein Fluid Total Protein Vancomycin Trough Rheumatoid Factor Complement C4 Miscellaneous Test Crossmatch 12/15/16 12/16/16 12/16/16 23:34 05:25 11:24 WBC RBC Hgb Hct MCV MCH MCHC RDW Plt Count Lymph % (Auto) [place] % (Auto) Lymph # [place] # Baso # Seg Neutrophils % Seg Neuts % (Manual) Lymphocytes % (Manual) Monocytes % (Manual) Eosinophils % (Manual) Basophils % (Manual) Nucleated RBC % Seg Neutrophils # Seg Neutrophils # Man Lymphocytes # (Manual) Monocytes # (Manual) Eosinophils # (Manual) Basophils # (Manual) PT INR Fibrinogen dRVVT Confirm Interp Factor V Activity POC ABG pH POC ABG pCO2 POC ABG pO2 ABG pO2 ABG HCO3 ABG Base Excess ABG Hemoglobin Oxyhemoglobin Sodium Potassium Chloride Carbon Dioxide BUN Creatinine Glucose POC Glucose 127 H 139 H 165 H Lactic Acid Calcium Ionized Calcium Phosphorus Magnesium Direct Bilirubin AST ALT Alkaline Phosphatase Lactate Dehydrogenase Troponin T C-Reactive Protein Total Protein Albumin Prealbumin Triglycerides Cholesterol LDL Cholesterol Direct HDL Cholesterol 25-OH Vitamin D Total PTH Intact Urine pH Urine WBC (Auto) Urine Creatinine Urine Total Protein Fluid Total Protein Vancomycin Trough Rheumatoid Factor Complement C4 Miscellaneous Test Crossmatch 12/16/16 12/16/16 12/16/16 15:30 16:25 17:31 WBC 17.8 H RBC 2.38 L Hgb 6.4 L Hct 20.3 L MCV MCH 27 L MCHC RDW 17.4 H Plt Count Lymph % (Auto) [place] % (Auto) Lymph # [place] # Baso # Seg Neutrophils % Seg Neuts % (Manual) Lymphocytes % (Manual) Monocytes % (Manual) 10.0 H Eosinophils % (Manual) Basophils % (Manual) Nucleated RBC % Seg Neutrophils # Seg Neutrophils # Man 8.5 H Lymphocytes # (Manual) Monocytes # (Manual) 1.8 H Eosinophils # (Manual) Basophils # (Manual) PT INR Fibrinogen dRVVT Confirm Interp Factor V Activity POC ABG pH POC ABG pCO2 POC ABG pO2 ABG pO2 ABG HCO3 ABG Base Excess ABG Hemoglobin Oxyhemoglobin Sodium Potassium Chloride Carbon Dioxide BUN Creatinine Glucose POC Glucose 176 H Lactic Acid Calcium Ionized Calcium Phosphorus Magnesium Direct Bilirubin AST ALT Alkaline Phosphatase Lactate Dehydrogenase Troponin T C-Reactive Protein Total Protein Albumin Prealbumin Triglycerides Cholesterol LDL Cholesterol Direct HDL Cholesterol 25-OH Vitamin D Total PTH Intact Urine pH Urine WBC (Auto) Urine Creatinine Urine Total Protein Fluid Total Protein Vancomycin Trough Rheumatoid Factor Complement C4 Miscellaneous Test Crossmatch See Detail 12/17/16 12/17/16 12/17/16 00:14 04:00 05:00 WBC 20.0 H RBC 2.99 L Hgb 8.5 L Hct 25.7 L MCV MCH MCHC RDW 17.2 H Plt Count Lymph % (Auto) [place] % (Auto) Lymph # [place] # Baso # Seg Neutrophils % Seg Neuts % (Manual) Lymphocytes % (Manual) Monocytes % (Manual) Eosinophils % (Manual) Basophils % (Manual) Nucleated RBC % Seg Neutrophils # Seg Neutrophils # Man Lymphocytes # (Manual) Monocytes # (Manual) Eosinophils # (Manual) Basophils # (Manual) PT INR Fibrinogen dRVVT Confirm Interp Factor V Activity POC ABG pH POC ABG pCO2 POC ABG pO2 ABG pO2 ABG HCO3 ABG Base Excess ABG Hemoglobin Oxyhemoglobin Sodium Potassium Chloride 97.7 L Carbon Dioxide BUN 73 H Creatinine 1.7 H Glucose 136 H POC Glucose 148 H Lactic Acid Calcium Ionized Calcium Phosphorus 2.20 L Magnesium 2.70 H Direct Bilirubin AST ALT Alkaline Phosphatase Lactate Dehydrogenase Troponin T C-Reactive Protein Total Protein Albumin Prealbumin Triglycerides Cholesterol LDL Cholesterol Direct HDL Cholesterol 25-OH Vitamin D Total PTH Intact Urine pH Urine WBC (Auto) Urine Creatinine Urine Total Protein Fluid Total Protein Vancomycin Trough Rheumatoid Factor Complement C4 Miscellaneous Test Crossmatch 12/17/16 12/17/16 12/17/16 05:39 12:50 16:32 WBC RBC Hgb Hct MCV MCH MCHC RDW Plt Count Lymph % (Auto) [place] % (Auto) Lymph # [place] # Baso # Seg Neutrophils % Seg Neuts % (Manual) Lymphocytes % (Manual) Monocytes % (Manual) Eosinophils % (Manual) Basophils % (Manual) Nucleated RBC % Seg Neutrophils # Seg Neutrophils # Man Lymphocytes # (Manual) Monocytes # (Manual) Eosinophils # (Manual) Basophils # (Manual) PT INR Fibrinogen dRVVT Confirm Interp Factor V Activity POC ABG pH POC ABG pCO2 POC ABG pO2 ABG pO2 ABG HCO3 ABG Base Excess ABG Hemoglobin Oxyhemoglobin Sodium Potassium Chloride Carbon Dioxide BUN Creatinine Glucose POC Glucose 162 H 146 H 169 H Lactic Acid Calcium Ionized Calcium Phosphorus Magnesium Direct Bilirubin AST ALT Alkaline Phosphatase Lactate Dehydrogenase Troponin T C-Reactive Protein Total Protein Albumin Prealbumin Triglycerides Cholesterol LDL Cholesterol Direct HDL Cholesterol 25-OH Vitamin D Total PTH Intact Urine pH Urine WBC (Auto) Urine Creatinine Urine Total Protein Fluid Total Protein Vancomycin Trough Rheumatoid Factor Complement C4 Miscellaneous Test Crossmatch 12/17/16 12/18/16 12/18/16 23:57 05:00 05:32 WBC RBC Hgb Hct MCV MCH MCHC RDW Plt Count Lymph % (Auto) [place] % (Auto) Lymph # [place] # Baso # Seg Neutrophils % Seg Neuts % (Manual) Lymphocytes % (Manual) Monocytes % (Manual) Eosinophils % (Manual) Basophils % (Manual) Nucleated RBC % Seg Neutrophils # Seg Neutrophils # Man Lymphocytes # (Manual) Monocytes # (Manual) Eosinophils # (Manual) Basophils # (Manual) PT INR Fibrinogen dRVVT Confirm Interp Factor V Activity POC ABG pH POC ABG pCO2 POC ABG pO2 ABG pO2 ABG HCO3 ABG Base Excess ABG Hemoglobin Oxyhemoglobin Sodium Potassium Chloride 97.0 L Carbon Dioxide BUN 63 H Creatinine 1.4 H Glucose 174 H POC Glucose 145 H 201 H Lactic Acid Calcium Ionized Calcium Phosphorus 1.70 L D Magnesium Direct Bilirubin AST ALT Alkaline Phosphatase 257 H Lactate Dehydrogenase Troponin T C-Reactive Protein Total Protein 5.9 L Albumin 1.8 L Prealbumin Triglycerides Cholesterol LDL Cholesterol Direct HDL Cholesterol 25-OH Vitamin D Total PTH Intact Urine pH Urine WBC (Auto) Urine Creatinine Urine Total Protein Fluid Total Protein Vancomycin Trough Rheumatoid Factor Complement C4 Miscellaneous Test Crossmatch 12/18/16 12/18/16 12/18/16 11:43 16:52 23:52 WBC RBC Hgb Hct MCV MCH MCHC RDW Plt Count Lymph % (Auto) [place] % (Auto) Lymph # [place] # Baso # Seg Neutrophils % Seg Neuts % (Manual) Lymphocytes % (Manual) Monocytes % (Manual) Eosinophils % (Manual) Basophils % (Manual) Nucleated RBC % Seg Neutrophils # Seg Neutrophils # Man Lymphocytes # (Manual) Monocytes # (Manual) Eosinophils # (Manual) Basophils # (Manual) PT INR Fibrinogen dRVVT Confirm Interp Factor V Activity POC ABG pH POC ABG pCO2 POC ABG pO2 ABG pO2 ABG HCO3 ABG Base Excess ABG Hemoglobin Oxyhemoglobin Sodium Potassium Chloride Carbon Dioxide BUN Creatinine Glucose POC Glucose 177 H 110 H 162 H Lactic Acid Calcium Ionized Calcium Phosphorus Magnesium Direct Bilirubin AST ALT Alkaline Phosphatase Lactate Dehydrogenase Troponin T C-Reactive Protein Total Protein Albumin Prealbumin Triglycerides Cholesterol LDL Cholesterol Direct HDL Cholesterol 25-OH Vitamin D Total PTH Intact Urine pH Urine WBC (Auto) Urine Creatinine Urine Total Protein Fluid Total Protein Vancomycin Trough Rheumatoid Factor Complement C4 Miscellaneous Test Crossmatch 12/19/16 12/19/16 12/19/16 05:02 05:24 09:30 WBC 20.1 H RBC 2.73 L Hgb 7.6 L Hct 23.6 L MCV MCH MCHC RDW 17.6 H Plt Count Lymph % (Auto) [place] % (Auto) Lymph # [place] # Baso # Seg Neutrophils % Seg Neuts % (Manual) Lymphocytes % (Manual) 13.0 L Monocytes % (Manual) Eosinophils % (Manual) Basophils % (Manual) Nucleated RBC % 1.0 H Seg Neutrophils # Seg Neutrophils # Man 12.9 H Lymphocytes # (Manual) Monocytes # (Manual) 1.4 H Eosinophils # (Manual) Basophils # (Manual) 0.2 H PT INR Fibrinogen dRVVT Confirm Interp Factor V Activity POC ABG pH POC ABG pCO2 POC ABG pO2 ABG pO2 ABG HCO3 ABG Base Excess ABG Hemoglobin Oxyhemoglobin Sodium Potassium Chloride 97.8 L Carbon Dioxide BUN 84 H Creatinine 1.6 H Glucose 133 H POC Glucose 134 H Lactic Acid Calcium Ionized Calcium Phosphorus Magnesium Direct Bilirubin AST ALT Alkaline Phosphatase Lactate Dehydrogenase Troponin T C-Reactive Protein Total Protein Albumin Prealbumin Triglycerides Cholesterol LDL Cholesterol Direct HDL Cholesterol 25-OH Vitamin D Total PTH Intact Urine pH Urine WBC (Auto) Urine Creatinine Urine Total Protein Fluid Total Protein Vancomycin Trough Rheumatoid Factor Complement C4 Miscellaneous Test Crossmatch 12/19/16 12/19/16 12/19/16 09:36 11:12 18:29 WBC RBC Hgb Hct MCV MCH MCHC RDW Plt Count Lymph % (Auto) [place] % (Auto) Lymph # [place] # Baso # Seg Neutrophils % Seg Neuts % (Manual) Lymphocytes % (Manual) Monocytes % (Manual) Eosinophils % (Manual) Basophils % (Manual) Nucleated RBC % Seg Neutrophils # Seg Neutrophils # Man Lymphocytes # (Manual) Monocytes # (Manual) Eosinophils # (Manual) Basophils # (Manual) PT INR Fibrinogen dRVVT Confirm Interp Factor V Activity POC ABG pH 7.503 H POC ABG pCO2 30.1 L POC ABG pO2 ABG pO2 ABG HCO3 ABG Base Excess ABG Hemoglobin Oxyhemoglobin Sodium Potassium Chloride Carbon Dioxide BUN Creatinine Glucose POC Glucose 138 H 156 H Lactic Acid Calcium Ionized Calcium Phosphorus Magnesium Direct Bilirubin AST ALT Alkaline Phosphatase Lactate Dehydrogenase Troponin T C-Reactive Protein Total Protein Albumin Prealbumin Triglycerides Cholesterol LDL Cholesterol Direct HDL Cholesterol 25-OH Vitamin D Total PTH Intact Urine pH Urine WBC (Auto) Urine Creatinine Urine Total Protein Fluid Total Protein Vancomycin Trough Rheumatoid Factor Complement C4 Miscellaneous Test Crossmatch 12/20/16 12/20/16 12/20/16 00:03 06:17 07:07 WBC RBC Hgb Hct MCV MCH MCHC RDW Plt Count Lymph % (Auto) [place] % (Auto) Lymph # [place] # Baso # Seg Neutrophils % Seg Neuts % (Manual) Lymphocytes % (Manual) Monocytes % (Manual) Eosinophils % (Manual) Basophils % (Manual) Nucleated RBC % Seg Neutrophils # Seg Neutrophils # Man Lymphocytes # (Manual) Monocytes # (Manual) Eosinophils # (Manual) Basophils # (Manual) PT INR Fibrinogen dRVVT Confirm Interp Factor V Activity POC ABG pH POC ABG pCO2 POC ABG pO2 ABG pO2 ABG HCO3 ABG Base Excess ABG Hemoglobin Oxyhemoglobin Sodium Potassium Chloride 97.1 L Carbon Dioxide 20 L BUN 97 H Creatinine 1.8 H Glucose 153 H POC Glucose 152 H 175 H Lactic Acid Calcium Ionized Calcium Phosphorus Magnesium Direct Bilirubin AST ALT Alkaline Phosphatase Lactate Dehydrogenase Troponin T C-Reactive Protein Total Protein Albumin Prealbumin Triglycerides Cholesterol LDL Cholesterol Direct HDL Cholesterol 25-OH Vitamin D Total PTH Intact Urine pH Urine WBC (Auto) Urine Creatinine Urine Total Protein Fluid Total Protein Vancomycin Trough Rheumatoid Factor Complement C4 Miscellaneous Test Crossmatch 12/20/16 12/20/16 12/20/16 12:00 17:42 23:53 WBC RBC Hgb Hct MCV MCH MCHC RDW Plt Count Lymph % (Auto) [place] % (Auto) Lymph # [place] # Baso # Seg Neutrophils % Seg Neuts % (Manual) Lymphocytes % (Manual) Monocytes % (Manual) Eosinophils % (Manual) Basophils % (Manual) Nucleated RBC % Seg Neutrophils # Seg Neutrophils # Man Lymphocytes # (Manual) Monocytes # (Manual) Eosinophils # (Manual) Basophils # (Manual) PT INR Fibrinogen dRVVT Confirm Interp Factor V Activity POC ABG pH POC ABG pCO2 POC ABG pO2 ABG pO2 ABG HCO3 ABG Base Excess ABG Hemoglobin Oxyhemoglobin Sodium Potassium Chloride Carbon Dioxide BUN Creatinine Glucose POC Glucose 141 H 156 H 132 H Lactic Acid Calcium Ionized Calcium Phosphorus Magnesium Direct Bilirubin AST ALT Alkaline Phosphatase Lactate Dehydrogenase Troponin T C-Reactive Protein Total Protein Albumin Prealbumin Triglycerides Cholesterol LDL Cholesterol Direct HDL Cholesterol 25-OH Vitamin D Total PTH Intact Urine pH Urine WBC (Auto) Urine Creatinine Urine Total Protein Fluid Total Protein Vancomycin Trough Rheumatoid Factor Complement C4 Miscellaneous Test Crossmatch 12/21/16 12/21/16 12/21/16 05:49 08:50 12:19 WBC RBC Hgb Hct MCV MCH MCHC RDW Plt Count Lymph % (Auto) [place] % (Auto) Lymph # [place] # Baso # Seg Neutrophils % Seg Neuts % (Manual) Lymphocytes % (Manual) Monocytes % (Manual) Eosinophils % (Manual) Basophils % (Manual) Nucleated RBC % Seg Neutrophils # Seg Neutrophils # Man Lymphocytes # (Manual) Monocytes # (Manual) Eosinophils # (Manual) Basophils # (Manual) PT INR Fibrinogen dRVVT Confirm Interp Factor V Activity POC ABG pH POC ABG pCO2 POC ABG pO2 ABG pO2 ABG HCO3 ABG Base Excess ABG Hemoglobin Oxyhemoglobin Sodium Potassium 5.2 H D Chloride Carbon Dioxide BUN 63 H Creatinine Glucose 122 H POC Glucose 132 H 136 H Lactic Acid Calcium 8.3 L Ionized Calcium Phosphorus Magnesium Direct Bilirubin AST ALT Alkaline Phosphatase Lactate Dehydrogenase Troponin T C-Reactive Protein Total Protein Albumin Prealbumin Triglycerides Cholesterol LDL Cholesterol Direct HDL Cholesterol 25-OH Vitamin D Total PTH Intact Urine pH Urine WBC (Auto) Urine Creatinine Urine Total Protein Fluid Total Protein Vancomycin Trough Rheumatoid Factor Complement C4 Miscellaneous Test Crossmatch 12/21/16 12/21/16 12/22/16 17:22 23:58 05:49 WBC RBC Hgb Hct MCV MCH MCHC RDW Plt Count Lymph % (Auto) [place] % (Auto) Lymph # [place] # Baso # Seg Neutrophils % Seg Neuts % (Manual) Lymphocytes % (Manual) Monocytes % (Manual) Eosinophils % (Manual) Basophils % (Manual) Nucleated RBC % Seg Neutrophils # Seg Neutrophils # Man Lymphocytes # (Manual) Monocytes # (Manual) Eosinophils # (Manual) Basophils # (Manual) PT INR Fibrinogen dRVVT Confirm Interp Factor V Activity POC ABG pH POC ABG pCO2 POC ABG pO2 ABG pO2 ABG HCO3 ABG Base Excess ABG Hemoglobin Oxyhemoglobin Sodium Potassium Chloride Carbon Dioxide BUN Creatinine Glucose POC Glucose 135 H 149 H 140 H Lactic Acid Calcium Ionized Calcium Phosphorus Magnesium Direct Bilirubin AST ALT Alkaline Phosphatase Lactate Dehydrogenase Troponin T C-Reactive Protein Total Protein Albumin Prealbumin Triglycerides Cholesterol LDL Cholesterol Direct HDL Cholesterol 25-OH Vitamin D Total PTH Intact Urine pH Urine WBC (Auto) Urine Creatinine Urine Total Protein Fluid Total Protein Vancomycin Trough Rheumatoid Factor Complement C4 Miscellaneous Test Crossmatch 12/22/16 12/22/16 12/22/16 06:10 11:17 17:31 WBC RBC Hgb Hct MCV MCH MCHC RDW Plt Count Lymph % (Auto) [place] % (Auto) Lymph # [place] # Baso # Seg Neutrophils % Seg Neuts % (Manual) Lymphocytes % (Manual) Monocytes % (Manual) Eosinophils % (Manual) Basophils % (Manual) Nucleated RBC % Seg Neutrophils # Seg Neutrophils # Man Lymphocytes # (Manual) Monocytes # (Manual) Eosinophils # (Manual) Basophils # (Manual) PT INR Fibrinogen dRVVT Confirm Interp Factor V Activity POC ABG pH POC ABG pCO2 POC ABG pO2 ABG pO2 ABG HCO3 ABG Base Excess ABG Hemoglobin Oxyhemoglobin Sodium Potassium Chloride Carbon Dioxide BUN 76 H Creatinine 1.5 H Glucose 241 H POC Glucose 193 H 148 H Lactic Acid Calcium Ionized Calcium Phosphorus Magnesium Direct Bilirubin AST ALT Alkaline Phosphatase Lactate Dehydrogenase Troponin T C-Reactive Protein Total Protein Albumin Prealbumin Triglycerides Cholesterol LDL Cholesterol Direct HDL Cholesterol 25-OH Vitamin D Total PTH Intact Urine pH Urine WBC (Auto) Urine Creatinine Urine Total Protein Fluid Total Protein Vancomycin Trough Rheumatoid Factor Complement C4 Miscellaneous Test Crossmatch 12/22/16 12/23/16 12/23/16 23:58 05:00 05:26 WBC RBC Hgb Hct MCV MCH MCHC RDW Plt Count Lymph % (Auto) [place] % (Auto) Lymph # [place] # Baso # Seg Neutrophils % Seg Neuts % (Manual) Lymphocytes % (Manual) Monocytes % (Manual) Eosinophils % (Manual) Basophils % (Manual) Nucleated RBC % Seg Neutrophils # Seg Neutrophils # Man Lymphocytes # (Manual) Monocytes # (Manual) Eosinophils # (Manual) Basophils # (Manual) PT INR Fibrinogen dRVVT Confirm Interp Factor V Activity POC ABG pH POC ABG pCO2 POC ABG pO2 ABG pO2 ABG HCO3 ABG Base Excess ABG Hemoglobin Oxyhemoglobin Sodium Potassium Chloride Carbon Dioxide BUN 49 H Creatinine Glucose 143 H POC Glucose 165 H 154 H Lactic Acid Calcium 8.2 L Ionized Calcium Phosphorus Magnesium 1.60 L Direct Bilirubin AST ALT Alkaline Phosphatase Lactate Dehydrogenase Troponin T C-Reactive Protein Total Protein Albumin Prealbumin Triglycerides Cholesterol LDL Cholesterol Direct HDL Cholesterol 25-OH Vitamin D Total PTH Intact Urine pH Urine WBC (Auto) Urine Creatinine Urine Total Protein Fluid Total Protein Vancomycin Trough Rheumatoid Factor Complement C4 Miscellaneous Test Crossmatch 12/23/16 12/23/16 12/24/16 12:35 17:01 00:01 WBC RBC Hgb Hct MCV MCH MCHC RDW Plt Count Lymph % (Auto) [place] % (Auto) Lymph # [place] # Baso # Seg Neutrophils % Seg Neuts % (Manual) Lymphocytes % (Manual) Monocytes % (Manual) Eosinophils % (Manual) Basophils % (Manual) Nucleated RBC % Seg Neutrophils # Seg Neutrophils # Man Lymphocytes # (Manual) Monocytes # (Manual) Eosinophils # (Manual) Basophils # (Manual) PT INR Fibrinogen dRVVT Confirm Interp Factor V Activity POC ABG pH POC ABG pCO2 POC ABG pO2 ABG pO2 ABG HCO3 ABG Base Excess ABG Hemoglobin Oxyhemoglobin Sodium Potassium Chloride Carbon Dioxide BUN Creatinine Glucose POC Glucose 164 H 149 H 135 H Lactic Acid Calcium Ionized Calcium Phosphorus Magnesium Direct Bilirubin AST ALT Alkaline Phosphatase Lactate Dehydrogenase Troponin T C-Reactive Protein Total Protein Albumin Prealbumin Triglycerides Cholesterol LDL Cholesterol Direct HDL Cholesterol 25-OH Vitamin D Total PTH Intact Urine pH Urine WBC (Auto) Urine Creatinine Urine Total Protein Fluid Total Protein Vancomycin Trough Rheumatoid Factor Complement C4 Miscellaneous Test Crossmatch 12/24/16 12/24/16 12/24/16 05:41 07:01 11:38 WBC RBC Hgb Hct MCV MCH MCHC RDW Plt Count Lymph % (Auto) [place] % (Auto) Lymph # [place] # Baso # Seg Neutrophils % Seg Neuts % (Manual) Lymphocytes % (Manual) Monocytes % (Manual) Eosinophils % (Manual) Basophils % (Manual) Nucleated RBC % Seg Neutrophils # Seg Neutrophils # Man Lymphocytes # (Manual) Monocytes # (Manual) Eosinophils # (Manual) Basophils # (Manual) PT INR Fibrinogen dRVVT Confirm Interp Factor V Activity POC ABG pH POC ABG pCO2 POC ABG pO2 ABG pO2 ABG HCO3 ABG Base Excess ABG Hemoglobin Oxyhemoglobin Sodium Potassium Chloride Carbon Dioxide BUN 72 H Creatinine 1.3 H Glucose 130 H POC Glucose 132 H 156 H Lactic Acid Calcium 8.2 L Ionized Calcium Phosphorus Magnesium Direct Bilirubin AST ALT Alkaline Phosphatase Lactate Dehydrogenase Troponin T C-Reactive Protein Total Protein Albumin Prealbumin Triglycerides Cholesterol LDL Cholesterol Direct HDL Cholesterol 25-OH Vitamin D Total PTH Intact Urine pH Urine WBC (Auto) Urine Creatinine Urine Total Protein Fluid Total Protein Vancomycin Trough Rheumatoid Factor Complement C4 Miscellaneous Test Crossmatch 12/24/16 12/25/1612/25/17 17:53 00:23 05:45 WBC RBC Hgb Hct MCV MCH MCHC RDW Plt Count Lymph % (Auto) [place] % (Auto) Lymph # [place] # Baso # Seg Neutrophils % Seg Neuts % (Manual) Lymphocytes % (Manual) Monocytes % (Manual) Eosinophils % (Manual) Basophils % (Manual) Nucleated RBC % Seg Neutrophils # Seg Neutrophils # Man Lymphocytes # (Manual) Monocytes # (Manual) Eosinophils # (Manual) Basophils # (Manual) PT INR Fibrinogen dRVVT Confirm Interp Factor V Activity POC ABG pH POC ABG pCO2 POC ABG pO2 ABG pO2 ABG HCO3 ABG Base Excess ABG Hemoglobin Oxyhemoglobin Sodium 146 H Potassium Chloride Carbon Dioxide BUN 51 H Creatinine Glucose 109 H POC Glucose 169 H 117 H Lactic Acid Calcium Ionized Calcium Phosphorus Magnesium Direct Bilirubin AST ALT Alkaline Phosphatase Lactate Dehydrogenase Troponin T C-Reactive Protein Total Protein Albumin Prealbumin Triglycerides Cholesterol LDL Cholesterol Direct HDL Cholesterol 25-OH Vitamin D Total PTH Intact Urine pH Urine WBC (Auto) Urine Creatinine Urine Total Protein Fluid Total Protein Vancomycin Trough Rheumatoid Factor Complement C4 Miscellaneous Test Crossmatch 12/25/16 12/25/16 12/25/16 06:43 11:29 17:14 WBC RBC Hgb Hct MCV MCH MCHC RDW Plt Count Lymph % (Auto) [place] % (Auto) Lymph # [place] # Baso # Seg Neutrophils % Seg Neuts % (Manual) Lymphocytes % (Manual) Monocytes % (Manual) Eosinophils % (Manual) Basophils % (Manual) Nucleated RBC % Seg Neutrophils # Seg Neutrophils # Man Lymphocytes # (Manual) Monocytes # (Manual) Eosinophils # (Manual) Basophils # (Manual) PT INR Fibrinogen dRVVT Confirm Interp Factor V Activity POC ABG pH POC ABG pCO2 POC ABG pO2 ABG pO2 ABG HCO3 ABG Base Excess ABG Hemoglobin Oxyhemoglobin Sodium Potassium Chloride Carbon Dioxide BUN Creatinine Glucose POC Glucose 117 H 128 H 120 H Lactic Acid Calcium Ionized Calcium Phosphorus Magnesium Direct Bilirubin AST ALT Alkaline Phosphatase Lactate Dehydrogenase Troponin T C-Reactive Protein Total Protein Albumin Prealbumin Triglycerides Cholesterol LDL Cholesterol Direct HDL Cholesterol 25-OH Vitamin D Total PTH Intact Urine pH Urine WBC (Auto) Urine Creatinine Urine Total Protein Fluid Total Protein Vancomycin Trough Rheumatoid Factor Complement C4 Miscellaneous Test Crossmatch 12/25/16 12/26/16 12/26/16 23:54 05:40 05:50 WBC 16.2 H RBC 2.32 L Hgb 6.2 L Hct 20.1 L MCV MCH 27 L MCHC RDW 18.6 H Plt Count Lymph % (Auto) [place] % (Auto) Lymph # [place] # Baso # Seg Neutrophils % Seg Neuts % (Manual) Lymphocytes % (Manual) Monocytes % (Manual) Eosinophils % (Manual) Basophils % (Manual) Nucleated RBC % Seg Neutrophils # Seg Neutrophils # Man Lymphocytes # (Manual) Monocytes # (Manual) Eosinophils # (Manual) Basophils # (Manual) PT INR Fibrinogen dRVVT Confirm Interp Factor V Activity POC ABG pH POC ABG pCO2 POC ABG pO2 ABG pO2 ABG HCO3 ABG Base Excess ABG Hemoglobin Oxyhemoglobin Sodium Potassium Chloride Carbon Dioxide BUN Creatinine Glucose POC Glucose 126 H 132 H Lactic Acid Calcium Ionized Calcium Phosphorus Magnesium Direct Bilirubin AST ALT Alkaline Phosphatase Lactate Dehydrogenase Troponin T C-Reactive Protein Total Protein Albumin Prealbumin Triglycerides Cholesterol LDL Cholesterol Direct HDL Cholesterol 25-OH Vitamin D Total PTH Intact Urine pH Urine WBC (Auto) Urine Creatinine Urine Total Protein Fluid Total Protein Vancomycin Trough Rheumatoid Factor Complement C4 Miscellaneous Test Crossmatch 12/26/16 12/26/16 12/26/16 05:50 12:17 12:33 WBC RBC Hgb Hct MCV MCH MCHC RDW Plt Count Lymph % (Auto) [place] % (Auto) Lymph # [place] # Baso # Seg Neutrophils % Seg Neuts % (Manual) Lymphocytes % (Manual) Monocytes % (Manual) Eosinophils % (Manual) Basophils % (Manual) Nucleated RBC % Seg Neutrophils # Seg Neutrophils # Man Lymphocytes # (Manual) Monocytes # (Manual) Eosinophils # (Manual) Basophils # (Manual) PT INR Fibrinogen dRVVT Confirm Interp Factor V Activity POC ABG pH POC ABG pCO2 POC ABG pO2 ABG pO2 ABG HCO3 ABG Base Excess ABG Hemoglobin Oxyhemoglobin Sodium Potassium Chloride Carbon Dioxide BUN 73 H Creatinine 1.3 H Glucose 113 H POC Glucose 117 H Lactic Acid Calcium Ionized Calcium Phosphorus Magnesium Direct Bilirubin AST ALT Alkaline Phosphatase Lactate Dehydrogenase Troponin T C-Reactive Protein Total Protein Albumin Prealbumin Triglycerides Cholesterol LDL Cholesterol Direct HDL Cholesterol 25-OH Vitamin D Total PTH Intact Urine pH Urine WBC (Auto) Urine Creatinine Urine Total Protein Fluid Total Protein Vancomycin Trough Rheumatoid Factor Complement C4 Miscellaneous Test Crossmatch See Detail 12/26/16 12/26/16 12/27/16 20:00 23:21 05:00 WBC RBC Hgb 8.4 L Hct 26.3 L D MCV MCH MCHC RDW Plt Count Lymph % (Auto) [place] % (Auto) Lymph # [place] # Baso # Seg Neutrophils % Seg Neuts % (Manual) Lymphocytes % (Manual) Monocytes % (Manual) Eosinophils % (Manual) Basophils % (Manual) Nucleated RBC % Seg Neutrophils # Seg Neutrophils # Man Lymphocytes # (Manual) Monocytes # (Manual) Eosinophils # (Manual) Basophils # (Manual) PT INR Fibrinogen dRVVT Confirm Interp Factor V Activity POC ABG pH POC ABG pCO2 POC ABG pO2 ABG pO2 ABG HCO3 ABG Base Excess ABG Hemoglobin Oxyhemoglobin Sodium Potassium Chloride Carbon Dioxide BUN 85 H Creatinine 1.6 H Glucose 118 H POC Glucose 124 H Lactic Acid Calcium Ionized Calcium Phosphorus 4.80 H Magnesium Direct Bilirubin AST ALT Alkaline Phosphatase Lactate Dehydrogenase Troponin T C-Reactive Protein Total Protein Albumin Prealbumin Triglycerides Cholesterol LDL Cholesterol Direct HDL Cholesterol 25-OH Vitamin D Total PTH Intact Urine pH Urine WBC (Auto) Urine Creatinine Urine Total Protein Fluid Total Protein Vancomycin Trough Rheumatoid Factor Complement C4 Miscellaneous Test Crossmatch 12/27/16 12/27/16 12/27/16 05:00 05:35 12:24 WBC RBC Hgb 7.6 L Hct 22.8 L MCV MCH MCHC RDW Plt Count Lymph % (Auto) [place] % (Auto) Lymph # [place] # Baso # Seg Neutrophils % Seg Neuts % (Manual) Lymphocytes % (Manual) Monocytes % (Manual) Eosinophils % (Manual) Basophils % (Manual) Nucleated RBC % Seg Neutrophils # Seg Neutrophils # Man Lymphocytes # (Manual) Monocytes # (Manual) Eosinophils # (Manual) Basophils # (Manual) PT INR Fibrinogen dRVVT Confirm Interp Factor V Activity POC ABG pH POC ABG pCO2 POC ABG pO2 ABG pO2 ABG HCO3 ABG Base Excess ABG Hemoglobin Oxyhemoglobin Sodium Potassium Chloride Carbon Dioxide BUN Creatinine Glucose POC Glucose 115 H 131 H Lactic Acid Calcium Ionized Calcium Phosphorus Magnesium Direct Bilirubin AST ALT Alkaline Phosphatase Lactate Dehydrogenase Troponin T C-Reactive Protein Total Protein Albumin Prealbumin Triglycerides Cholesterol LDL Cholesterol Direct HDL Cholesterol 25-OH Vitamin D Total PTH Intact Urine pH Urine WBC (Auto) Urine Creatinine Urine Total Protein Fluid Total Protein Vancomycin Trough Rheumatoid Factor Complement C4 Miscellaneous Test Crossmatch 12/27/16 12/28/16 12/28/16 17:16 00:18 04:00 WBC RBC Hgb Hct MCV MCH MCHC RDW Plt Count Lymph % (Auto) [place] % (Auto) Lymph # [place] # Baso # Seg Neutrophils % Seg Neuts % (Manual) Lymphocytes % (Manual) Monocytes % (Manual) Eosinophils % (Manual) Basophils % (Manual) Nucleated RBC % Seg Neutrophils # Seg Neutrophils # Man Lymphocytes # (Manual) Monocytes # (Manual) Eosinophils # (Manual) Basophils # (Manual) PT INR Fibrinogen dRVVT Confirm Interp Factor V Activity POC ABG pH POC ABG pCO2 POC ABG pO2 ABG pO2 ABG HCO3 ABG Base Excess ABG Hemoglobin Oxyhemoglobin Sodium Potassium 3.5 L Chloride Carbon Dioxide BUN 57 H Creatinine Glucose 118 H POC Glucose 136 H 120 H Lactic Acid Calcium 8.3 L Ionized Calcium Phosphorus Magnesium Direct Bilirubin AST ALT Alkaline Phosphatase Lactate Dehydrogenase Troponin T C-Reactive Protein Total Protein Albumin Prealbumin Triglycerides Cholesterol LDL Cholesterol Direct HDL Cholesterol 25-OH Vitamin D Total PTH Intact Urine pH Urine WBC (Auto) Urine Creatinine Urine Total Protein Fluid Total Protein Vancomycin Trough Rheumatoid Factor Complement C4 Miscellaneous Test Crossmatch 12/28/16 12/28/16 12/28/16 04:00 05:11 08:30 WBC 17.0 H RBC 2.58 L Hgb 7.1 L Hct 22.0 L MCV MCH MCHC RDW 17.6 H Plt Count Lymph % (Auto) 12.[address] [place] % (Auto) Lymph # [place] # 1.1 H Baso # Seg Neutrophils % 80.5 H Seg Neuts % (Manual) Lymphocytes % (Manual) Monocytes % (Manual) Eosinophils % (Manual) Basophils % (Manual) Nucleated RBC % Seg Neutrophils # 13.7 H Seg Neutrophils # Man Lymphocytes # (Manual) Monocytes # (Manual) Eosinophils # (Manual) Basophils # (Manual) PT 16.1 H INR 1.23 H Fibrinogen dRVVT Confirm Interp Factor V Activity POC ABG pH POC ABG pCO2 POC ABG pO2 ABG pO2 ABG HCO3 ABG Base Excess ABG Hemoglobin Oxyhemoglobin Sodium Potassium Chloride Carbon Dioxide BUN Creatinine Glucose POC Glucose 122 H Lactic Acid Calcium Ionized Calcium Phosphorus Magnesium Direct Bilirubin AST ALT Alkaline Phosphatase Lactate Dehydrogenase Troponin T C-Reactive Protein Total Protein Albumin Prealbumin Triglycerides Cholesterol LDL Cholesterol Direct HDL Cholesterol 25-OH Vitamin D Total PTH Intact Urine pH Urine WBC (Auto) Urine Creatinine Urine Total Protein Fluid Total Protein Vancomycin Trough Rheumatoid Factor Complement C4 Miscellaneous Test Crossmatch 12/28/16 12/28/16 12/28/16 12:27 16:32 23:46 WBC RBC Hgb Hct MCV MCH MCHC RDW Plt Count Lymph % (Auto) [place] % (Auto) Lymph # [place] # Baso # Seg Neutrophils % Seg Neuts % (Manual) Lymphocytes % (Manual) Monocytes % (Manual) Eosinophils % (Manual) Basophils % (Manual) Nucleated RBC % Seg Neutrophils # Seg Neutrophils # Man Lymphocytes # (Manual) Monocytes # (Manual) Eosinophils # (Manual) Basophils # (Manual) PT INR Fibrinogen dRVVT Confirm Interp Factor V Activity POC ABG pH POC ABG pCO2 POC ABG pO2 ABG pO2 ABG HCO3 ABG Base Excess ABG Hemoglobin Oxyhemoglobin Sodium Potassium Chloride Carbon Dioxide BUN Creatinine Glucose POC Glucose 127 H 117 H 108 H Lactic Acid Calcium Ionized Calcium Phosphorus Magnesium Direct Bilirubin AST ALT Alkaline Phosphatase Lactate Dehydrogenase Troponin T C-Reactive Protein Total Protein Albumin Prealbumin Triglycerides Cholesterol LDL Cholesterol Direct HDL Cholesterol 25-OH Vitamin D Total PTH Intact Urine pH Urine WBC (Auto) Urine Creatinine Urine Total Protein Fluid Total Protein Vancomycin Trough Rheumatoid Factor Complement C4 Miscellaneous Test Crossmatch 12/29/16 12/29/16 12/29/16 05:15 05:15 05:32 WBC RBC Hgb Hct MCV MCH MCHC RDW Plt Count Lymph % (Auto) [place] % (Auto) Lymph # [place] # Baso # Seg Neutrophils % Seg Neuts % (Manual) Lymphocytes % (Manual) Monocytes % (Manual) Eosinophils % (Manual) Basophils % (Manual) Nucleated RBC % Seg Neutrophils # Seg Neutrophils # Man Lymphocytes # (Manual) Monocytes # (Manual) Eosinophils # (Manual) Basophils # (Manual) PT INR Fibrinogen dRVVT Confirm Interp Factor V Activity POC ABG pH POC ABG pCO2 POC ABG pO2 ABG pO2 ABG HCO3 ABG Base Excess ABG Hemoglobin Oxyhemoglobin Sodium Potassium Chloride Carbon Dioxide BUN 74 H Creatinine 1.6 H Glucose 111 H POC Glucose 123 H Lactic Acid Calcium Ionized Calcium Phosphorus Magnesium Direct Bilirubin AST ALT Alkaline Phosphatase Lactate Dehydrogenase Troponin T C-Reactive Protein Total Protein Albumin Prealbumin 0.110 L Triglycerides Cholesterol LDL Cholesterol Direct HDL Cholesterol 25-OH Vitamin D Total PTH Intact Urine pH Urine WBC (Auto) Urine Creatinine Urine Total Protein Fluid Total Protein Vancomycin Trough Rheumatoid Factor Complement C4 Miscellaneous Test Crossmatch 11/11/0612/29/16 12/29/16 11:43 13:45 14:00 WBC 13.8 H RBC 2.26 L Hgb 6.3 L Hct 20.4 L MCV MCH MCHC RDW 18.3 H Plt Count Lymph % (Auto) [place] % (Auto) Lymph # [place] # 0.9 H Baso # Seg Neutrophils % 78.6 H Seg Neuts % (Manual) Lymphocytes % (Manual) Monocytes % (Manual) Eosinophils % (Manual) Basophils % (Manual) Nucleated RBC % Seg Neutrophils # 10.8 H Seg Neutrophils # Man Lymphocytes # (Manual) Monocytes # (Manual) Eosinophils # (Manual) Basophils # (Manual) PT INR Fibrinogen dRVVT Confirm Interp Factor V Activity POC ABG pH POC ABG pCO2 POC ABG pO2 ABG pO2 ABG HCO3 ABG Base Excess ABG Hemoglobin Oxyhemoglobin Sodium Potassium Chloride Carbon Dioxide BUN Creatinine Glucose POC Glucose 133 H Lactic Acid Calcium Ionized Calcium Phosphorus Magnesium Direct Bilirubin AST ALT Alkaline Phosphatase Lactate Dehydrogenase Troponin T C-Reactive Protein Total Protein Albumin Prealbumin Triglycerides Cholesterol LDL Cholesterol Direct HDL Cholesterol 25-OH Vitamin D Total PTH Intact Urine pH Urine WBC (Auto) Urine Creatinine Urine Total Protein Fluid Total Protein Vancomycin Trough Rheumatoid Factor Complement C4 Miscellaneous Test Crossmatch See Detail 12/29/16 12/29/16 12/29/16 17:03 23:15 23:22 WBC RBC Hgb 7.3 L Hct 22.3 L MCV MCH MCHC RDW Plt Count Lymph % (Auto) [place] % (Auto) Lymph # [place] # Baso # Seg Neutrophils % Seg Neuts % (Manual) Lymphocytes % (Manual) Monocytes % (Manual) Eosinophils % (Manual) Basophils % (Manual) Nucleated RBC % Seg Neutrophils # Seg Neutrophils # Man Lymphocytes # (Manual) Monocytes # (Manual) Eosinophils # (Manual) Basophils # (Manual) PT INR Fibrinogen dRVVT Confirm Interp Factor V Activity POC ABG pH POC ABG pCO2 POC ABG pO2 ABG pO2 ABG HCO3 ABG Base Excess ABG Hemoglobin Oxyhemoglobin Sodium Potassium Chloride Carbon Dioxide BUN Creatinine Glucose POC Glucose 139 H 120 H Lactic Acid Calcium Ionized Calcium Phosphorus Magnesium Direct Bilirubin AST ALT Alkaline Phosphatase Lactate Dehydrogenase Troponin T C-Reactive Protein Total Protein Albumin Prealbumin Triglycerides Cholesterol LDL Cholesterol Direct HDL Cholesterol 25-OH Vitamin D Total PTH Intact Urine pH Urine WBC (Auto) Urine Creatinine Urine Total Protein Fluid Total Protein Vancomycin Trough Rheumatoid Factor Complement C4 Miscellaneous Test Crossmatch 12/30/16 12/30/16 12/30/16 04:20 04:20 05:43 WBC 15.6 H RBC 2.81 L Hgb 8.0 L Hct 24.0 L MCV MCH MCHC RDW 16.9 H Plt Count Lymph % (Auto) [place] % (Auto) Lymph # [place] # 1.0 H Baso # Seg Neutrophils % 76.2 H Seg Neuts % (Manual) Lymphocytes % (Manual) Monocytes % (Manual) Eosinophils % (Manual) Basophils % (Manual) Nucleated RBC % Seg Neutrophils # 11.9 H Seg Neutrophils # Man Lymphocytes # (Manual) Monocytes # (Manual) Eosinophils # (Manual) Basophils # (Manual) PT INR Fibrinogen dRVVT Confirm Interp Factor V Activity POC ABG pH POC ABG pCO2 POC ABG pO2 ABG pO2 ABG HCO3 ABG Base Excess ABG Hemoglobin Oxyhemoglobin Sodium Potassium Chloride Carbon Dioxide BUN 87 H Creatinine 1.8 H Glucose 119 H POC Glucose 115 H Lactic Acid Calcium Ionized Calcium Phosphorus Magnesium Direct Bilirubin AST ALT Alkaline Phosphatase Lactate Dehydrogenase Troponin T C-Reactive Protein Total Protein Albumin Prealbumin Triglycerides Cholesterol LDL Cholesterol Direct HDL Cholesterol 25-OH Vitamin D Total PTH Intact Urine pH Urine WBC (Auto) Urine Creatinine Urine Total Protein Fluid Total Protein Vancomycin Trough Rheumatoid Factor Complement C4 Miscellaneous Test Crossmatch 12/30/16 12/30/16 12/31/16 17:27 23:21 04:00 WBC RBC Hgb Hct MCV MCH MCHC RDW Plt Count Lymph % (Auto) [place] % (Auto) Lymph # [place] # Baso # Seg Neutrophils % Seg Neuts % (Manual) Lymphocytes % (Manual) Monocytes % (Manual) Eosinophils % (Manual) Basophils % (Manual) Nucleated RBC % Seg Neutrophils # Seg Neutrophils # Man Lymphocytes # (Manual) Monocytes # (Manual) Eosinophils # (Manual) Basophils # (Manual) PT INR Fibrinogen dRVVT Confirm Interp Factor V Activity POC ABG pH POC ABG pCO2 POC ABG pO2 ABG pO2 ABG HCO3 ABG Base Excess ABG Hemoglobin Oxyhemoglobin Sodium Potassium Chloride Carbon Dioxide BUN 59 H Creatinine Glucose 298 H POC Glucose 144 H 125 H Lactic Acid Calcium Ionized Calcium Phosphorus Magnesium Direct Bilirubin AST ALT Alkaline Phosphatase Lactate Dehydrogenase Troponin T C-Reactive Protein Total Protein Albumin Prealbumin Triglycerides Cholesterol LDL Cholesterol Direct HDL Cholesterol 25-OH Vitamin D Total PTH Intact Urine pH Urine WBC (Auto) Urine Creatinine Urine Total Protein Fluid Total Protein Vancomycin Trough Rheumatoid Factor Complement C4 Miscellaneous Test Crossmatch 12/31/16 12/31/16 12/31/16 05:11 12:18 18:17 WBC RBC Hgb Hct MCV MCH MCHC RDW Plt Count Lymph % (Auto) [place] % (Auto) Lymph # [place] # Baso # Seg Neutrophils % Seg Neuts % (Manual) Lymphocytes % (Manual) Monocytes % (Manual) Eosinophils % (Manual) Basophils % (Manual) Nucleated RBC % Seg Neutrophils # Seg Neutrophils # Man Lymphocytes # (Manual) Monocytes # (Manual) Eosinophils # (Manual) Basophils # (Manual) PT INR Fibrinogen dRVVT Confirm Interp Factor V Activity POC ABG pH POC ABG pCO2 POC ABG pO2 ABG pO2 ABG HCO3 ABG Base Excess ABG Hemoglobin Oxyhemoglobin Sodium Potassium Chloride Carbon Dioxide BUN Creatinine Glucose POC Glucose 167 H 125 H 133 H Lactic Acid Calcium Ionized Calcium Phosphorus Magnesium Direct Bilirubin AST ALT Alkaline Phosphatase Lactate Dehydrogenase Troponin T C-Reactive Protein Total Protein Albumin Prealbumin Triglycerides Cholesterol LDL Cholesterol Direct HDL Cholesterol 25-OH Vitamin D Total PTH Intact Urine pH Urine WBC (Auto) Urine Creatinine Urine Total Protein Fluid Total Protein Vancomycin Trough Rheumatoid Factor Complement C4 Miscellaneous Test Crossmatch 12/31/16 01/01/17 01/01/17 23:55 05:00 05:12 WBC RBC Hgb Hct MCV MCH MCHC RDW Plt Count Lymph % (Auto) [place] % (Auto) Lymph # [place] # Baso # Seg Neutrophils % Seg Neuts % (Manual) Lymphocytes % (Manual) Monocytes % (Manual) Eosinophils % (Manual) Basophils % (Manual) Nucleated RBC % Seg Neutrophils # Seg Neutrophils # Man Lymphocytes # (Manual) Monocytes # (Manual) Eosinophils # (Manual) Basophils # (Manual) PT INR Fibrinogen dRVVT Confirm Interp Factor V Activity POC ABG pH POC ABG pCO2 POC ABG pO2 ABG pO2 ABG HCO3 ABG Base Excess ABG Hemoglobin Oxyhemoglobin Sodium Potassium Chloride Carbon Dioxide BUN 76 H Creatinine 1.5 H Glucose 109 H POC Glucose 129 H 129 H Lactic Acid Calcium Ionized Calcium Phosphorus Magnesium Direct Bilirubin AST ALT Alkaline Phosphatase 536 H Lactate Dehydrogenase Troponin T C-Reactive Protein Total Protein Albumin 1.5 L Prealbumin Triglycerides Cholesterol LDL Cholesterol Direct HDL Cholesterol 25-OH Vitamin D Total PTH Intact Urine pH Urine WBC (Auto) Urine Creatinine Urine Total Protein Fluid Total Protein Vancomycin Trough Rheumatoid Factor Complement C4 Miscellaneous Test Crossmatch 01/01/17 01/01/17 01/01/17 12:25 17:01 23:32 WBC RBC Hgb Hct MCV MCH MCHC RDW Plt Count Lymph % (Auto) [place] % (Auto) Lymph # [place] # Baso # Seg Neutrophils % Seg Neuts % (Manual) Lymphocytes % (Manual) Monocytes % (Manual) Eosinophils % (Manual) Basophils % (Manual) Nucleated RBC % Seg Neutrophils # Seg Neutrophils # Man Lymphocytes # (Manual) Monocytes # (Manual) Eosinophils # (Manual) Basophils # (Manual) PT INR Fibrinogen dRVVT Confirm Interp Factor V Activity POC ABG pH POC ABG pCO2 POC ABG pO2 ABG pO2 ABG HCO3 ABG Base Excess ABG Hemoglobin Oxyhemoglobin Sodium Potassium Chloride Carbon Dioxide BUN Creatinine Glucose POC Glucose 140 H 142 H 112 H Lactic Acid Calcium Ionized Calcium Phosphorus Magnesium Direct Bilirubin AST ALT Alkaline Phosphatase Lactate Dehydrogenase Troponin T C-Reactive Protein Total Protein Albumin Prealbumin Triglycerides Cholesterol LDL Cholesterol Direct HDL Cholesterol 25-OH Vitamin D Total PTH Intact Urine pH Urine WBC (Auto) Urine Creatinine Urine Total Protein Fluid Total Protein Vancomycin Trough Rheumatoid Factor Complement C4 Miscellaneous Test Crossmatch 01/02/17 01/02/17 01/02/17 04:56 06:00 11:37 WBC RBC Hgb Hct MCV MCH MCHC RDW Plt Count Lymph % (Auto) [place] % (Auto) Lymph # [place] # Baso # Seg Neutrophils % Seg Neuts % (Manual) Lymphocytes % (Manual) Monocytes % (Manual) Eosinophils % (Manual) Basophils % (Manual) Nucleated RBC % Seg Neutrophils # Seg Neutrophils # Man Lymphocytes # (Manual) Monocytes # (Manual) Eosinophils # (Manual) Basophils # (Manual) PT INR Fibrinogen dRVVT Confirm Interp Factor V Activity POC ABG pH POC ABG pCO2 POC ABG pO2 ABG pO2 ABG HCO3 ABG Base Excess ABG Hemoglobin Oxyhemoglobin Sodium Potassium Chloride Carbon Dioxide BUN 88 H Creatinine 1.7 H Glucose 113 H POC Glucose 136 H 200 H Lactic Acid Calcium Ionized Calcium Phosphorus Magnesium Direct Bilirubin AST ALT Alkaline Phosphatase Lactate Dehydrogenase Troponin T C-Reactive Protein Total Protein Albumin Prealbumin Triglycerides Cholesterol LDL Cholesterol Direct HDL Cholesterol 25-OH Vitamin D Total PTH Intact Urine pH Urine WBC (Auto) Urine Creatinine Urine Total Protein Fluid Total Protein Vancomycin Trough Rheumatoid Factor Complement C4 Miscellaneous Test Crossmatch 01/02/17 01/02/17 01/03/17 17:42 22:52 04:54 WBC RBC Hgb Hct MCV MCH MCHC RDW Plt Count Lymph % (Auto) [place] % (Auto) Lymph # [place] # Baso # Seg Neutrophils % Seg Neuts % (Manual) Lymphocytes % (Manual) Monocytes % (Manual) Eosinophils % (Manual) Basophils % (Manual) Nucleated RBC % Seg Neutrophils # Seg Neutrophils # Man Lymphocytes # (Manual) Monocytes # (Manual) Eosinophils # (Manual) Basophils # (Manual) PT INR Fibrinogen dRVVT Confirm Interp Factor V Activity POC ABG pH POC ABG pCO2 POC ABG pO2 ABG pO2 ABG HCO3 ABG Base Excess ABG Hemoglobin Oxyhemoglobin Sodium Potassium Chloride Carbon Dioxide BUN Creatinine Glucose POC Glucose 112 H 133 H 111 H Lactic Acid Calcium Ionized Calcium Phosphorus Magnesium Direct Bilirubin AST ALT Alkaline Phosphatase Lactate Dehydrogenase Troponin T C-Reactive Protein Total Protein Albumin Prealbumin Triglycerides Cholesterol LDL Cholesterol Direct HDL Cholesterol 25-OH Vitamin D Total PTH Intact Urine pH Urine WBC (Auto) Urine Creatinine Urine Total Protein Fluid Total Protein Vancomycin Trough Rheumatoid Factor Complement C4 Miscellaneous Test Crossmatch 01/03/17 01/03/17 01/03/17 05:00 05:00 14:02 WBC 11.2 H RBC 2.56 L Hgb 7.2 L Hct 22.3 L MCV MCH MCHC RDW 17.3 H Plt Count Lymph % (Auto) [place] % (Auto) 10.0 H Lymph # [place] # 1.1 H Baso # Seg Neutrophils % 70.5 H Seg Neuts % (Manual) Lymphocytes % (Manual) Monocytes % (Manual) Eosinophils % (Manual) Basophils % (Manual) Nucleated RBC % Seg Neutrophils # 7.9 H Seg Neutrophils # Man Lymphocytes # (Manual) Monocytes # (Manual) Eosinophils # (Manual) Basophils # (Manual) PT INR Fibrinogen dRVVT Confirm Interp Factor V Activity POC ABG pH POC ABG pCO2 POC ABG pO2 ABG pO2 ABG HCO3 ABG Base Excess ABG Hemoglobin Oxyhemoglobin Sodium Potassium Chloride Carbon Dioxide BUN 60 H Creatinine 1.3 H Glucose 110 H POC Glucose 119 H Lactic Acid Calcium Ionized Calcium Phosphorus Magnesium Direct Bilirubin AST ALT Alkaline Phosphatase Lactate Dehydrogenase Troponin T C-Reactive Protein Total Protein Albumin Prealbumin Triglycerides Cholesterol LDL Cholesterol Direct HDL Cholesterol 25-OH Vitamin D Total PTH Intact Urine pH Urine WBC (Auto) Urine Creatinine Urine Total Protein Fluid Total Protein Vancomycin Trough Rheumatoid Factor Complement C4 Miscellaneous Test Crossmatch 01/03/17 01/03/17 01/04/17 18:13 23:40 05:57 WBC RBC Hgb Hct MCV MCH MCHC RDW Plt Count Lymph % (Auto) [place] % (Auto) Lymph # [place] # Baso # Seg Neutrophils % Seg Neuts % (Manual) Lymphocytes % (Manual) Monocytes % (Manual) Eosinophils % (Manual) Basophils % (Manual) Nucleated RBC % Seg Neutrophils # Seg Neutrophils # Man Lymphocytes # (Manual) Monocytes # (Manual) Eosinophils # (Manual) Basophils # (Manual) PT INR Fibrinogen dRVVT Confirm Interp Factor V Activity POC ABG pH POC ABG pCO2 POC ABG pO2 ABG pO2 ABG HCO3 ABG Base Excess ABG Hemoglobin Oxyhemoglobin Sodium Potassium Chloride Carbon Dioxide BUN Creatinine Glucose POC Glucose 107 H 129 H 111 H Lactic Acid Calcium Ionized Calcium Phosphorus Magnesium Direct Bilirubin AST ALT Alkaline Phosphatase Lactate Dehydrogenase Troponin T C-Reactive Protein Total Protein Albumin Prealbumin Triglycerides Cholesterol LDL Cholesterol Direct HDL Cholesterol 25-OH Vitamin D Total PTH Intact Urine pH Urine WBC (Auto) Urine Creatinine Urine Total Protein Fluid Total Protein Vancomycin Trough Rheumatoid Factor Complement C4 Miscellaneous Test Crossmatch 01/04/17 01/04/17 01/04/17 12:46 15:27 17:11 WBC RBC Hgb Hct MCV MCH MCHC RDW Plt Count Lymph % (Auto) [place] % (Auto) Lymph # [place] # Baso # Seg Neutrophils % Seg Neuts % (Manual) Lymphocytes % (Manual) Monocytes % (Manual) Eosinophils % (Manual) Basophils % (Manual) Nucleated RBC % Seg Neutrophils # Seg Neutrophils # Man Lymphocytes # (Manual) Monocytes # (Manual) Eosinophils # (Manual) Basophils # (Manual) PT INR Fibrinogen dRVVT Confirm Interp Factor V Activity POC ABG pH POC ABG pCO2 POC ABG pO2 ABG pO2 ABG HCO3 ABG Base Excess ABG Hemoglobin Oxyhemoglobin Sodium Potassium Chloride Carbon Dioxide BUN 43 H Creatinine Glucose 124 H POC Glucose 159 H 125 H Lactic Acid Calcium 8.0 L Ionized Calcium Phosphorus 2.10 L Magnesium Direct Bilirubin AST ALT Alkaline Phosphatase Lactate Dehydrogenase Troponin T C-Reactive Protein Total Protein Albumin Prealbumin Triglycerides Cholesterol LDL Cholesterol Direct HDL Cholesterol 25-OH Vitamin D Total PTH Intact Urine pH Urine WBC (Auto) Urine Creatinine Urine Total Protein Fluid Total Protein Vancomycin Trough Rheumatoid Factor Complement C4 Miscellaneous Test Crossmatch 01/04/17 01/05/17 01/05/17 23:31 04:00 05:46 WBC RBC Hgb Hct MCV MCH MCHC RDW Plt Count Lymph % (Auto) [place] % (Auto) Lymph # [place] # Baso # Seg Neutrophils % Seg Neuts % (Manual) Lymphocytes % (Manual) Monocytes % (Manual) Eosinophils % (Manual) Basophils % (Manual) Nucleated RBC % Seg Neutrophils # Seg Neutrophils # Man Lymphocytes # (Manual) Monocytes # (Manual) Eosinophils # (Manual) Basophils # (Manual) PT INR Fibrinogen dRVVT Confirm Interp Factor V Activity POC ABG pH POC ABG pCO2 POC ABG pO2 ABG pO2 ABG HCO3 ABG Base Excess ABG Hemoglobin Oxyhemoglobin Sodium Potassium Chloride Carbon Dioxide BUN 52 H Creatinine 1.3 H Glucose 113 H POC Glucose 123 H 118 H Lactic Acid Calcium Ionized Calcium Phosphorus 2.40 L Magnesium Direct Bilirubin AST ALT Alkaline Phosphatase Lactate Dehydrogenase Troponin T C-Reactive Protein Total Protein Albumin Prealbumin Triglycerides Cholesterol LDL Cholesterol Direct HDL Cholesterol 25-OH Vitamin D Total PTH Intact Urine pH Urine WBC (Auto) Urine Creatinine Urine Total Protein Fluid Total Protein Vancomycin Trough Rheumatoid Factor Complement C4 Miscellaneous Test Crossmatch 01/05/17 01/05/17 01/05/17 11:41 17:48 23:27 WBC RBC Hgb Hct MCV MCH MCHC RDW Plt Count Lymph % (Auto) [place] % (Auto) Lymph # [place] # Baso # Seg Neutrophils % Seg Neuts % (Manual) Lymphocytes % (Manual) Monocytes % (Manual) Eosinophils % (Manual) Basophils % (Manual) Nucleated RBC % Seg Neutrophils # Seg Neutrophils # Man Lymphocytes # (Manual) Monocytes # (Manual) Eosinophils # (Manual) Basophils # (Manual) PT INR Fibrinogen dRVVT Confirm Interp Factor V Activity POC ABG pH POC ABG pCO2 POC ABG pO2 ABG pO2 ABG HCO3 ABG Base Excess ABG Hemoglobin Oxyhemoglobin Sodium Potassium Chloride Carbon Dioxide BUN Creatinine Glucose POC Glucose 163 H 142 H 155 H Lactic Acid Calcium Ionized Calcium Phosphorus Magnesium Direct Bilirubin AST ALT Alkaline Phosphatase Lactate Dehydrogenase Troponin T C-Reactive Protein Total Protein Albumin Prealbumin Triglycerides Cholesterol LDL Cholesterol Direct HDL Cholesterol 25-OH Vitamin D Total PTH Intact Urine pH Urine WBC (Auto) Urine Creatinine Urine Total Protein Fluid Total Protein Vancomycin Trough Rheumatoid Factor Complement C4 Miscellaneous Test Crossmatch 01/06/17 01/06/1701/06/17 05:20 07:35 11:18 WBC RBC Hgb Hct MCV MCH MCHC RDW Plt Count Lymph % (Auto) [place] % (Auto) Lymph # [place] # Baso # Seg Neutrophils % Seg Neuts % (Manual) Lymphocytes % (Manual) Monocytes % (Manual) Eosinophils % (Manual) Basophils % (Manual) Nucleated RBC % Seg Neutrophils # Seg Neutrophils # Man Lymphocytes # (Manual) Monocytes # (Manual) Eosinophils # (Manual) Basophils # (Manual) PT INR Fibrinogen dRVVT Confirm Interp Factor V Activity POC ABG pH POC ABG pCO2 POC ABG pO2 ABG pO2 ABG HCO3 ABG Base Excess ABG Hemoglobin Oxyhemoglobin Sodium Potassium Chloride Carbon Dioxide BUN 74 H Creatinine 1.6 H Glucose 135 H POC Glucose 108 H 149 H Lactic Acid Calcium Ionized Calcium Phosphorus Magnesium Direct Bilirubin AST ALT Alkaline Phosphatase Lactate Dehydrogenase Troponin T C-Reactive Protein Total Protein Albumin Prealbumin Triglycerides Cholesterol LDL Cholesterol Direct HDL Cholesterol 25-OH Vitamin D Total PTH Intact Urine pH Urine WBC (Auto) Urine Creatinine Urine Total Protein Fluid Total Protein Vancomycin Trough Rheumatoid Factor Complement C4 Miscellaneous Test Crossmatch 01/06/17 01/07/17 01/07/17 17:17 00:23 05:31 WBC RBC Hgb Hct MCV MCH MCHC RDW Plt Count Lymph % (Auto) [place] % (Auto) Lymph # [place] # Baso # Seg Neutrophils % Seg Neuts % (Manual) Lymphocytes % (Manual) Monocytes % (Manual) Eosinophils % (Manual) Basophils % (Manual) Nucleated RBC % Seg Neutrophils # Seg Neutrophils # Man Lymphocytes # (Manual) Monocytes # (Manual) Eosinophils # (Manual) Basophils # (Manual) PT INR Fibrinogen dRVVT Confirm Interp Factor V Activity POC ABG pH POC ABG pCO2 POC ABG pO2 ABG pO2 ABG HCO3 ABG Base Excess ABG Hemoglobin Oxyhemoglobin Sodium Potassium Chloride Carbon Dioxide BUN Creatinine Glucose POC Glucose 146 H 165 H 153 H Lactic Acid Calcium Ionized Calcium Phosphorus Magnesium Direct Bilirubin AST ALT Alkaline Phosphatase Lactate Dehydrogenase Troponin T C-Reactive Protein Total Protein Albumin Prealbumin Triglycerides Cholesterol LDL Cholesterol Direct HDL Cholesterol 25-OH Vitamin D Total PTH Intact Urine pH Urine WBC (Auto) Urine Creatinine Urine Total Protein Fluid Total Protein Vancomycin Trough Rheumatoid Factor Complement C4 Miscellaneous Test Crossmatch 01/07/17 01/07/17 01/07/17 06:00 11:39 17:11 WBC RBC Hgb Hct MCV MCH MCHC RDW Plt Count Lymph % (Auto) [place] % (Auto) Lymph # [place] # Baso # Seg Neutrophils % Seg Neuts % (Manual) Lymphocytes % (Manual) Monocytes % (Manual) Eosinophils % (Manual) Basophils % (Manual) Nucleated RBC % Seg Neutrophils # Seg Neutrophils # Man Lymphocytes # (Manual) Monocytes # (Manual) Eosinophils # (Manual) Basophils # (Manual) PT INR Fibrinogen dRVVT Confirm Interp Factor V Activity POC ABG pH POC ABG pCO2 POC ABG pO2 ABG pO2 ABG HCO3 ABG Base Excess ABG Hemoglobin Oxyhemoglobin Sodium Potassium Chloride Carbon Dioxide BUN 42 H Creatinine Glucose 175 H POC Glucose 163 H 163 H Lactic Acid Calcium Ionized Calcium Phosphorus 2.40 L D Magnesium Direct Bilirubin AST ALT Alkaline Phosphatase Lactate Dehydrogenase Troponin T C-Reactive Protein Total Protein Albumin Prealbumin Triglycerides Cholesterol LDL Cholesterol Direct HDL Cholesterol 25-OH Vitamin D Total PTH Intact Urine pH Urine WBC (Auto) Urine Creatinine Urine Total Protein Fluid Total Protein Vancomycin Trough Rheumatoid Factor Complement C4 Miscellaneous Test Crossmatch 01/07/17 01/08/17 01/08/17 23:40 05:00 05:00 WBC 27.4 H RBC 2.27 L Hgb 6.1 L Hct 20.4 L MCV MCH 27 L MCHC RDW 17.8 H Plt Count Lymph % (Auto) [place] % (Auto) Lymph # [place] # Baso # Seg Neutrophils % Seg Neuts % (Manual) Lymphocytes % (Manual) Monocytes % (Manual) Eosinophils % (Manual) Basophils % (Manual) Nucleated RBC % Seg Neutrophils # Seg Neutrophils # Man Lymphocytes # (Manual) Monocytes # (Manual) Eosinophils # (Manual) Basophils # (Manual) PT INR Fibrinogen dRVVT Confirm Interp Factor V Activity POC ABG pH POC ABG pCO2 POC ABG pO2 ABG pO2 ABG HCO3 ABG Base Excess ABG Hemoglobin Oxyhemoglobin Sodium Potassium Chloride Carbon Dioxide 16 L D BUN 62 H Creatinine 1.6 H D Glucose 103 H POC Glucose 135 H Lactic Acid Calcium Ionized Calcium Phosphorus Magnesium Direct Bilirubin AST ALT Alkaline Phosphatase Lactate Dehydrogenase Troponin T C-Reactive Protein Total Protein Albumin Prealbumin Triglycerides Cholesterol LDL Cholesterol Direct HDL Cholesterol 25-OH Vitamin D Total PTH Intact Urine pH Urine WBC (Auto) Urine Creatinine Urine Total Protein Fluid Total Protein Vancomycin Trough Rheumatoid Factor Complement C4 Miscellaneous Test Crossmatch 01/08/17 01/08/1717 05:25 10:37 10:37 WBC RBC Hgb Hct MCV MCH MCHC RDW Plt Count Lymph % (Auto) [place] % (Auto) Lymph # [place] # Baso # Seg Neutrophils % Seg Neuts % (Manual) Lymphocytes % (Manual) Monocytes % (Manual) Eosinophils % (Manual) Basophils % (Manual) Nucleated RBC % Seg Neutrophils # Seg Neutrophils # Man Lymphocytes # (Manual) Monocytes # (Manual) Eosinophils # (Manual) Basophils # (Manual) PT INR Fibrinogen dRVVT Confirm Interp Factor V Activity POC ABG pH POC ABG pCO2 POC ABG pO2 ABG pO2 ABG HCO3 ABG Base Excess ABG Hemoglobin Oxyhemoglobin Sodium Potassium Chloride Carbon Dioxide BUN Creatinine Glucose POC Glucose 106 H Lactic Acid Calcium Ionized Calcium Phosphorus Magnesium Direct Bilirubin AST ALT Alkaline Phosphatase Lactate Dehydrogenase Troponin T C-Reactive Protein 24.40 H Total Protein Albumin Prealbumin Triglycerides Cholesterol LDL Cholesterol Direct HDL Cholesterol 25-OH Vitamin D Total PTH Intact Urine pH Urine WBC (Auto) Urine Creatinine Urine Total Protein Fluid Total Protein Vancomycin Trough Rheumatoid Factor Complement C4 Miscellaneous Test Crossmatch See Detail 01/08/17 01/08/17 01/08/17 10:37 11:33 15:15 WBC RBC Hgb Hct MCV MCH MCHC RDW Plt Count Lymph % (Auto) [place] % (Auto) Lymph # [place] # Baso # Seg Neutrophils % Seg Neuts % (Manual) Lymphocytes % (Manual) Monocytes % (Manual) Eosinophils % (Manual) Basophils % (Manual) Nucleated RBC % Seg Neutrophils # Seg Neutrophils # Man Lymphocytes # (Manual) Monocytes # (Manual) Eosinophils # (Manual) Basophils # (Manual) PT INR Fibrinogen dRVVT Confirm Interp Factor V Activity POC ABG pH POC ABG pCO2 POC ABG pO2 ABG pO2 ABG HCO3 ABG Base Excess ABG Hemoglobin Oxyhemoglobin Sodium Potassium Chloride Carbon Dioxide BUN Creatinine Glucose POC Glucose 157 H Lactic Acid 9.70 H* 9.10 H* Calcium Ionized Calcium Phosphorus Magnesium Direct Bilirubin AST ALT Alkaline Phosphatase Lactate Dehydrogenase Troponin T C-Reactive Protein Total Protein Albumin Prealbumin Triglycerides Cholesterol LDL Cholesterol Direct HDL Cholesterol 25-OH Vitamin D Total PTH Intact Urine pH Urine WBC (Auto) Urine Creatinine Urine Total Protein Fluid Total Protein Vancomycin Trough Rheumatoid Factor Complement C4 Miscellaneous Test Crossmatch 01/08/17 01/08/17 01/09/17 17:19 23:12 04:40 WBC RBC Hgb Hct MCV MCH MCHC RDW Plt Count Lymph % (Auto) [place] % (Auto) Lymph # [place] # Baso # Seg Neutrophils % Seg Neuts % (Manual) Lymphocytes % (Manual) Monocytes % (Manual) Eosinophils % (Manual) Basophils % (Manual) Nucleated RBC % Seg Neutrophils # Seg Neutrophils # Man Lymphocytes # (Manual) Monocytes # (Manual) Eosinophils # (Manual) Basophils # (Manual) PT INR Fibrinogen dRVVT Confirm Interp Factor V Activity POC ABG pH POC ABG pCO2 POC ABG pO2 ABG pO2 ABG HCO3 ABG Base Excess ABG Hemoglobin Oxyhemoglobin Sodium 147 H Potassium Chloride Carbon Dioxide BUN 82 H Creatinine 1.8 H Glucose 137 H POC Glucose 164 H 157 H Lactic Acid Calcium Ionized Calcium Phosphorus Magnesium Direct Bilirubin AST ALT Alkaline Phosphatase Lactate Dehydrogenase Troponin T C-Reactive Protein Total Protein Albumin Prealbumin Triglycerides Cholesterol LDL Cholesterol Direct HDL Cholesterol 25-OH Vitamin D Total PTH Intact Urine pH Urine WBC (Auto) Urine Creatinine Urine Total Protein Fluid Total Protein Vancomycin Trough Rheumatoid Factor Complement C4 Miscellaneous Test Crossmatch 01/09/17 01/09/17 01/09/17 05:42 08:22 10:57 WBC RBC Hgb Hct MCV MCH MCHC RDW Plt Count Lymph % (Auto) [place] % (Auto) Lymph # [place] # Baso # Seg Neutrophils % Seg Neuts % (Manual) Lymphocytes % (Manual) Monocytes % (Manual) Eosinophils % (Manual) Basophils % (Manual) Nucleated RBC % Seg Neutrophils # Seg Neutrophils # Man Lymphocytes # (Manual) Monocytes # (Manual) Eosinophils # (Manual) Basophils # (Manual) PT INR Fibrinogen dRVVT Confirm Interp Factor V Activity POC ABG pH POC ABG pCO2 POC ABG pO2 ABG pO2 ABG HCO3 ABG Base Excess ABG Hemoglobin Oxyhemoglobin Sodium Potassium Chloride Carbon Dioxide BUN Creatinine Glucose POC Glucose 156 H 122 H Lactic Acid 2.30 H* Calcium Ionized Calcium Phosphorus Magnesium Direct Bilirubin AST ALT Alkaline Phosphatase Lactate Dehydrogenase Troponin T C-Reactive Protein Total Protein Albumin Prealbumin Triglycerides Cholesterol LDL Cholesterol Direct HDL Cholesterol 25-OH Vitamin D Total PTH Intact Urine pH Urine WBC (Auto) Urine Creatinine Urine Total Protein Fluid Total Protein Vancomycin Trough Rheumatoid Factor Complement C4 Miscellaneous Test Crossmatch 01/09/17 01/09/17 01/09/17 13:30 17:14 18:45 WBC RBC Hgb Hct MCV MCH MCHC RDW Plt Count Lymph % (Auto) [place] % (Auto) Lymph # [place] # Baso # Seg Neutrophils % Seg Neuts % (Manual) Lymphocytes % (Manual) Monocytes % (Manual) Eosinophils % (Manual) Basophils % (Manual) Nucleated RBC % Seg Neutrophils # Seg Neutrophils # Man Lymphocytes # (Manual) Monocytes # (Manual) Eosinophils # (Manual) Basophils # (Manual) PT INR Fibrinogen dRVVT Confirm Interp Factor V Activity POC ABG pH POC ABG pCO2 POC ABG pO2 ABG pO2 ABG HCO3 ABG Base Excess ABG Hemoglobin Oxyhemoglobin Sodium Potassium Chloride Carbon Dioxide BUN Creatinine Glucose POC Glucose 127 H Lactic Acid Calcium Ionized Calcium Phosphorus Magnesium Direct Bilirubin AST ALT Alkaline Phosphatase Lactate Dehydrogenase Troponin T C-Reactive Protein 24.70 H Total Protein Albumin Prealbumin Triglycerides Cholesterol LDL Cholesterol Direct HDL Cholesterol 25-OH Vitamin D Total PTH Intact Urine pH Urine WBC (Auto) Urine Creatinine Urine Total Protein Fluid Total Protein Vancomycin Trough Rheumatoid Factor Complement C4 Miscellaneous Test Flexitest 1 H Crossmatch 01/10/17 01/10/17 01/10/17 01:21 04:00 04:00 WBC 18.1 H RBC 3.22 L Hgb 8.8 L Hct 27.0 L D MCV MCH 27 L MCHC RDW 17.0 H Plt Count Lymph % (Auto) [place] % (Auto) Lymph # [place] # Baso # Seg Neutrophils % Seg Neuts % (Manual) Lymphocytes % (Manual) Monocytes % (Manual) Eosinophils % (Manual) Basophils % (Manual) Nucleated RBC % Seg Neutrophils # Seg Neutrophils # Man Lymphocytes # (Manual) Monocytes # (Manual) Eosinophils # (Manual) Basophils # (Manual) PT INR Fibrinogen dRVVT Confirm Interp Factor V Activity POC ABG pH POC ABG pCO2 POC ABG pO2 ABG pO2 ABG HCO3 ABG Base Excess ABG Hemoglobin Oxyhemoglobin Sodium Potassium Chloride Carbon Dioxide BUN 59 H Creatinine 1.3 H Glucose 122 H POC Glucose 160 H Lactic Acid Calcium Ionized Calcium Phosphorus Magnesium Direct Bilirubin AST ALT Alkaline Phosphatase Lactate Dehydrogenase Troponin T C-Reactive Protein Total Protein Albumin Prealbumin Triglycerides Cholesterol LDL Cholesterol Direct HDL Cholesterol 25-OH Vitamin D Total PTH Intact Urine pH Urine WBC (Auto) Urine Creatinine Urine Total Protein Fluid Total Protein Vancomycin Trough Rheumatoid Factor Complement C4 Miscellaneous Test Crossmatch 01/10/17 01/10/17 01/10/17 05:36 12:14 17:55 WBC RBC Hgb Hct MCV MCH MCHC RDW Plt Count Lymph % (Auto) [place] % (Auto) Lymph # [place] # Baso # Seg Neutrophils % Seg Neuts % (Manual) Lymphocytes % (Manual) Monocytes % (Manual) Eosinophils % (Manual) Basophils % (Manual) Nucleated RBC % Seg Neutrophils # Seg Neutrophils # Man Lymphocytes # (Manual) Monocytes # (Manual) Eosinophils # (Manual) Basophils # (Manual) PT INR Fibrinogen dRVVT Confirm Interp Factor V Activity POC ABG pH POC ABG pCO2 POC ABG pO2 ABG pO2 ABG HCO3 ABG Base Excess ABG Hemoglobin Oxyhemoglobin Sodium Potassium Chloride Carbon Dioxide BUN Creatinine Glucose POC Glucose 163 H 120 H 144 H Lactic Acid Calcium Ionized Calcium Phosphorus Magnesium Direct Bilirubin AST ALT Alkaline Phosphatase Lactate Dehydrogenase Troponin T C-Reactive Protein Total Protein Albumin Prealbumin Triglycerides Cholesterol LDL Cholesterol Direct HDL Cholesterol 25-OH Vitamin D Total PTH Intact Urine pH Urine WBC (Auto) Urine Creatinine Urine Total Protein Fluid Total Protein Vancomycin Trough Rheumatoid Factor Complement C4 Miscellaneous Test Crossmatch 01/11/17 01/11/17 01/11/17 00:09 04:00 04:00 WBC 15.8 H RBC 3.04 L Hgb 8.2 L Hct 25.5 L MCV MCH 27 L MCHC RDW 17.3 H Plt Count Lymph % (Auto) [place] % (Auto) Lymph # [place] # Baso # Seg Neutrophils % Seg Neuts % (Manual) Lymphocytes % (Manual) Monocytes % (Manual) Eosinophils % (Manual) Basophils % (Manual) Nucleated RBC % Seg Neutrophils # Seg Neutrophils # Man Lymphocytes # (Manual) Monocytes # (Manual) Eosinophils # (Manual) Basophils # (Manual) PT INR Fibrinogen dRVVT Confirm Interp Factor V Activity POC ABG pH POC ABG pCO2 POC ABG pO2 ABG pO2 ABG HCO3 ABG Base Excess ABG Hemoglobin Oxyhemoglobin Sodium Potassium Chloride Carbon Dioxide BUN 78 H Creatinine 1.6 H Glucose 109 H POC Glucose 122 H Lactic Acid Calcium Ionized Calcium Phosphorus Magnesium Direct Bilirubin AST ALT Alkaline Phosphatase Lactate Dehydrogenase Troponin T C-Reactive Protein Total Protein Albumin Prealbumin Triglycerides Cholesterol LDL Cholesterol Direct HDL Cholesterol 25-OH Vitamin D Total PTH Intact Urine pH Urine WBC (Auto) Urine Creatinine Urine Total Protein Fluid Total Protein Vancomycin Trough Rheumatoid Factor Complement C4 Miscellaneous Test Crossmatch 01/11/17 01/11/17 01/11/17 12:46 18:23 23:42 WBC RBC Hgb Hct MCV MCH MCHC RDW Plt Count Lymph % (Auto) [place] % (Auto) Lymph # [place] # Baso # Seg Neutrophils % Seg Neuts % (Manual) Lymphocytes % (Manual) Monocytes % (Manual) Eosinophils % (Manual) Basophils % (Manual) Nucleated RBC % Seg Neutrophils # Seg Neutrophils # Man Lymphocytes # (Manual) Monocytes # (Manual) Eosinophils # (Manual) Basophils # (Manual) PT INR Fibrinogen dRVVT Confirm Interp Factor V Activity POC ABG pH POC ABG pCO2 POC ABG pO2 ABG pO2 ABG HCO3 ABG Base Excess ABG Hemoglobin Oxyhemoglobin Sodium Potassium Chloride Carbon Dioxide BUN Creatinine Glucose POC Glucose 148 H 125 H 124 H Lactic Acid Calcium Ionized Calcium Phosphorus Magnesium Direct Bilirubin AST ALT Alkaline Phosphatase Lactate Dehydrogenase Troponin T C-Reactive Protein Total Protein Albumin Prealbumin Triglycerides Cholesterol LDL Cholesterol Direct HDL Cholesterol 25-OH Vitamin D Total PTH Intact Urine pH Urine WBC (Auto) Urine Creatinine Urine Total Protein Fluid Total Protein Vancomycin Trough Rheumatoid Factor Complement C4 Miscellaneous Test Crossmatch 01/12/17 01/12/17 01/12/17 04:30 04:30 05:47 WBC 15.8 H RBC 3.31 L Hgb 8.9 L Hct 27.9 L MCV MCH 27 L MCHC RDW 17.4 H Plt Count Lymph % (Auto) [place] % (Auto) Lymph # [place] # Baso # Seg Neutrophils % Seg Neuts % (Manual) Lymphocytes % (Manual) Monocytes % (Manual) Eosinophils % (Manual) Basophils % (Manual) Nucleated RBC % Seg Neutrophils # Seg Neutrophils # Man Lymphocytes # (Manual) Monocytes # (Manual) Eosinophils # (Manual) Basophils # (Manual) PT INR Fibrinogen dRVVT Confirm Interp Factor V Activity POC ABG pH POC ABG pCO2 POC ABG pO2 ABG pO2 ABG HCO3 ABG Base Excess ABG Hemoglobin Oxyhemoglobin Sodium Potassium Chloride Carbon Dioxide BUN 57 H Creatinine Glucose 121 H POC Glucose 110 H Lactic Acid Calcium Ionized Calcium Phosphorus 2.10 L Magnesium Direct Bilirubin AST ALT Alkaline Phosphatase Lactate Dehydrogenase Troponin T C-Reactive Protein Total Protein Albumin Prealbumin Triglycerides Cholesterol LDL Cholesterol Direct HDL Cholesterol 25-OH Vitamin D Total PTH Intact Urine pH Urine WBC (Auto) Urine Creatinine Urine Total Protein Fluid Total Protein Vancomycin Trough Rheumatoid Factor Complement C4 Miscellaneous Test Crossmatch 01/12/17 01/12/17 01/12/17 11:35 17:45 23:14 WBC RBC Hgb Hct MCV MCH MCHC RDW Plt Count Lymph % (Auto) [place] % (Auto) Lymph # [place] # Baso # Seg Neutrophils % Seg Neuts % (Manual) Lymphocytes % (Manual) Monocytes % (Manual) Eosinophils % (Manual) Basophils % (Manual) Nucleated RBC % Seg Neutrophils # Seg Neutrophils # Man Lymphocytes # (Manual) Monocytes # (Manual) Eosinophils # (Manual) Basophils # (Manual) PT INR Fibrinogen dRVVT Confirm Interp Factor V Activity POC ABG pH POC ABG pCO2 POC ABG pO2 ABG pO2 ABG HCO3 ABG Base Excess ABG Hemoglobin Oxyhemoglobin Sodium Potassium Chloride Carbon Dioxide BUN Creatinine Glucose POC Glucose 146 H 117 H 123 H Lactic Acid Calcium Ionized Calcium Phosphorus Magnesium Direct Bilirubin AST ALT Alkaline Phosphatase Lactate Dehydrogenase Troponin T C-Reactive Protein Total Protein Albumin Prealbumin Triglycerides Cholesterol LDL Cholesterol Direct HDL Cholesterol 25-OH Vitamin D Total PTH Intact Urine pH Urine WBC (Auto) Urine Creatinine Urine Total Protein Fluid Total Protein Vancomycin Trough Rheumatoid Factor Complement C4 Miscellaneous Test Crossmatch 01/13/17 01/13/17 01/13/17 05:32 06:00 12:10 WBC RBC Hgb Hct MCV MCH MCHC RDW Plt Count Lymph % (Auto) [place] % (Auto) Lymph # [place] # Baso # Seg Neutrophils % Seg Neuts % (Manual) Lymphocytes % (Manual) Monocytes % (Manual) Eosinophils % (Manual) Basophils % (Manual) Nucleated RBC % Seg Neutrophils # Seg Neutrophils # Man Lymphocytes # (Manual) Monocytes # (Manual) Eosinophils # (Manual) Basophils # (Manual) PT INR Fibrinogen dRVVT Confirm Interp Factor V Activity POC ABG pH POC ABG pCO2 POC ABG pO2 ABG pO2 ABG HCO3 ABG Base Excess ABG Hemoglobin Oxyhemoglobin Sodium Potassium Chloride Carbon Dioxide BUN 80 H Creatinine 1.4 H Glucose 106 H POC Glucose 106 H Lactic Acid Calcium Ionized Calcium Phosphorus Magnesium Direct Bilirubin AST ALT Alkaline Phosphatase Lactate Dehydrogenase Troponin T C-Reactive Protein Total Protein Albumin Prealbumin Triglycerides Cholesterol LDL Cholesterol Direct HDL Cholesterol 25-OH Vitamin D Total PTH Intact Urine pH Urine WBC (Auto) Urine Creatinine Urine Total Protein Fluid Total Protein 3.0 L Vancomycin Trough Rheumatoid Factor Complement C4 Miscellaneous Test Crossmatch 01/13/17 01/13/17 01/13/17 12:17 15:50 17:30 WBC RBC Hgb Hct MCV MCH MCHC RDW Plt Count Lymph % (Auto) [place] % (Auto) Lymph # [place] # Baso # Seg Neutrophils % Seg Neuts % (Manual) Lymphocytes % (Manual) Monocytes % (Manual) Eosinophils % (Manual) Basophils % (Manual) Nucleated RBC % Seg Neutrophils # Seg Neutrophils # Man Lymphocytes # (Manual) Monocytes # (Manual) Eosinophils # (Manual) Basophils # (Manual) PT 15.4 H INR 1.16 H Fibrinogen dRVVT Confirm Interp Factor V Activity POC ABG pH POC ABG pCO2 POC ABG pO2 ABG pO2 ABG HCO3 ABG Base Excess ABG Hemoglobin Oxyhemoglobin Sodium Potassium Chloride Carbon Dioxide BUN Creatinine Glucose POC Glucose 168 H 110 H Lactic Acid Calcium Ionized Calcium Phosphorus Magnesium Direct Bilirubin AST ALT Alkaline Phosphatase Lactate Dehydrogenase Troponin T C-Reactive Protein Total Protein Albumin Prealbumin Triglycerides Cholesterol LDL Cholesterol Direct HDL Cholesterol 25-OH Vitamin D Total PTH Intact Urine pH Urine WBC (Auto) Urine Creatinine Urine Total Protein Fluid Total Protein Vancomycin Trough Rheumatoid Factor Complement C4 Miscellaneous Test Crossmatch 01/13/17 01/14/17 01/14/17 23:42 05:24 05:30 WBC RBC Hgb Hct MCV MCH MCHC RDW Plt Count Lymph % (Auto) [place] % (Auto) Lymph # [place] # Baso # Seg Neutrophils % Seg Neuts % (Manual) Lymphocytes % (Manual) Monocytes % (Manual) Eosinophils % (Manual) Basophils % (Manual) Nucleated RBC % Seg Neutrophils # Seg Neutrophils # Man Lymphocytes # (Manual) Monocytes # (Manual) Eosinophils # (Manual) Basophils # (Manual) PT INR Fibrinogen dRVVT Confirm Interp Factor V Activity POC ABG pH POC ABG pCO2 POC ABG pO2 ABG pO2 ABG HCO3 ABG Base Excess ABG Hemoglobin Oxyhemoglobin Sodium Potassium Chloride Carbon Dioxide BUN 58 H Creatinine Glucose 114 H POC Glucose 155 H 121 H Lactic Acid Calcium Ionized Calcium Phosphorus Magnesium Direct Bilirubin AST ALT Alkaline Phosphatase Lactate Dehydrogenase Troponin T C-Reactive Protein Total Protein Albumin Prealbumin Triglycerides Cholesterol LDL Cholesterol Direct HDL Cholesterol 25-OH Vitamin D Total PTH Intact Urine pH Urine WBC (Auto) Urine Creatinine Urine Total Protein Fluid Total Protein Vancomycin Trough Rheumatoid Factor Complement C4 Miscellaneous Test Crossmatch 01/14/17 01/14/17 01/15/17 12:48 17:36 00:15 WBC RBC Hgb Hct MCV MCH MCHC RDW Plt Count Lymph % (Auto) [place] % (Auto) Lymph # [place] # Baso # Seg Neutrophils % Seg Neuts % (Manual) Lymphocytes % (Manual) Monocytes % (Manual) Eosinophils % (Manual) Basophils % (Manual) Nucleated RBC % Seg Neutrophils # Seg Neutrophils # Man Lymphocytes # (Manual) Monocytes # (Manual) Eosinophils # (Manual) Basophils # (Manual) PT INR Fibrinogen dRVVT Confirm Interp Factor V Activity POC ABG pH POC ABG pCO2 POC ABG pO2 ABG pO2 ABG HCO3 ABG Base Excess ABG Hemoglobin Oxyhemoglobin Sodium Potassium Chloride Carbon Dioxide BUN Creatinine Glucose POC Glucose 130 H 135 H 132 H Lactic Acid Calcium Ionized Calcium Phosphorus Magnesium Direct Bilirubin AST ALT Alkaline Phosphatase Lactate Dehydrogenase Troponin T C-Reactive Protein Total Protein Albumin Prealbumin Triglycerides Cholesterol LDL Cholesterol Direct HDL Cholesterol 25-OH Vitamin D Total PTH Intact Urine pH Urine WBC (Auto) Urine Creatinine Urine Total Protein Fluid Total Protein Vancomycin Trough Rheumatoid Factor Complement C4 Miscellaneous Test Crossmatch 01/15/17 01/15/17 01/15/17 05:01 11:55 12:45 WBC 16.2 H RBC 3.00 L Hgb 8.1 L Hct 25.4 L MCV MCH 27 L MCHC RDW 17.6 H Plt Count Lymph % (Auto) 11.[address] [place] % (Auto) 7.8 H Lymph # [place] # 1.3 H Baso # Seg Neutrophils % 80.1 H Seg Neuts % (Manual) Lymphocytes % (Manual) Monocytes % (Manual) Eosinophils % (Manual) Basophils % (Manual) Nucleated RBC % Seg Neutrophils # 13.0 H Seg Neutrophils # Man Lymphocytes # (Manual) Monocytes # (Manual) Eosinophils # (Manual) Basophils # (Manual) PT INR Fibrinogen dRVVT Confirm Interp Factor V Activity POC ABG pH POC ABG pCO2 POC ABG pO2 ABG pO2 ABG HCO3 ABG Base Excess ABG Hemoglobin Oxyhemoglobin Sodium Potassium Chloride Carbon Dioxide BUN Creatinine Glucose POC Glucose 126 H 125 H Lactic Acid Calcium Ionized Calcium Phosphorus Magnesium Direct Bilirubin AST ALT Alkaline Phosphatase Lactate Dehydrogenase Troponin T C-Reactive Protein Total Protein Albumin Prealbumin Triglycerides Cholesterol LDL Cholesterol Direct HDL Cholesterol 25-OH Vitamin D Total PTH Intact Urine pH Urine WBC (Auto) Urine Creatinine Urine Total Protein Fluid Total Protein Vancomycin Trough Rheumatoid Factor Complement C4 Miscellaneous Test Crossmatch 01/15/17 01/15/17 01/15/17 12:45 17:31 23:39 WBC RBC Hgb Hct MCV MCH MCHC RDW Plt Count Lymph % (Auto) [place] % (Auto) Lymph # [place] # Baso # Seg Neutrophils % Seg Neuts % (Manual) Lymphocytes % (Manual) Monocytes % (Manual) Eosinophils % (Manual) Basophils % (Manual) Nucleated RBC % Seg Neutrophils # Seg Neutrophils # Man Lymphocytes # (Manual) Monocytes # (Manual) Eosinophils # (Manual) Basophils # (Manual) PT INR Fibrinogen dRVVT Confirm Interp Factor V Activity POC ABG pH POC ABG pCO2 POC ABG pO2 ABG pO2 ABG HCO3 ABG Base Excess ABG Hemoglobin Oxyhemoglobin Sodium 136 L Potassium Chloride Carbon Dioxide BUN 87 H Creatinine 1.7 H Glucose 108 H POC Glucose 129 H 112 H Lactic Acid Calcium Ionized Calcium Phosphorus Magnesium Direct Bilirubin AST ALT Alkaline Phosphatase Lactate Dehydrogenase Troponin T C-Reactive Protein Total Protein Albumin Prealbumin Triglycerides Cholesterol LDL Cholesterol Direct HDL Cholesterol 25-OH Vitamin D Total PTH Intact Urine pH Urine WBC (Auto) Urine Creatinine Urine Total Protein Fluid Total Protein Vancomycin Trough Rheumatoid Factor Complement C4 Miscellaneous Test Crossmatch 01/16/17 01/16/17 01/16/17 05:23 11:42 12:32 WBC RBC Hgb Hct MCV MCH MCHC RDW Plt Count Lymph % (Auto) [place] % (Auto) Lymph # [place] # Baso # Seg Neutrophils % Seg Neuts % (Manual) Lymphocytes % (Manual) Monocytes % (Manual) Eosinophils % (Manual) Basophils % (Manual) Nucleated RBC % Seg Neutrophils # Seg Neutrophils # Man Lymphocytes # (Manual) Monocytes # (Manual) Eosinophils # (Manual) Basophils # (Manual) PT INR Fibrinogen dRVVT Confirm Interp Factor V Activity POC ABG pH 7.499 H POC ABG pCO2 30.9 L POC ABG pO2 51 L ABG pO2 ABG HCO3 ABG Base Excess ABG Hemoglobin Oxyhemoglobin Sodium Potassium Chloride Carbon Dioxide BUN Creatinine Glucose POC Glucose 118 H 133 H Lactic Acid Calcium Ionized Calcium Phosphorus Magnesium Direct Bilirubin AST ALT Alkaline Phosphatase Lactate Dehydrogenase Troponin T C-Reactive Protein Total Protein Albumin Prealbumin Triglycerides Cholesterol LDL Cholesterol Direct HDL Cholesterol 25-OH Vitamin D Total PTH Intact Urine pH Urine WBC (Auto) Urine Creatinine Urine Total Protein Fluid Total Protein Vancomycin Trough Rheumatoid Factor Complement C4 Miscellaneous Test Crossmatch 01/16/17 01/16/17 01/16/17 17:52 23:57 Unknown WBC RBC Hgb Hct MCV MCH MCHC RDW Plt Count Lymph % (Auto) [place] % (Auto) Lymph # [place] # Baso # Seg Neutrophils % Seg Neuts % (Manual) Lymphocytes % (Manual) Monocytes % (Manual) Eosinophils % (Manual) Basophils % (Manual) Nucleated RBC % Seg Neutrophils # Seg Neutrophils # Man Lymphocytes # (Manual) Monocytes # (Manual) Eosinophils # (Manual) Basophils # (Manual) PT INR Fibrinogen dRVVT Confirm Interp Factor V Activity POC ABG pH POC ABG pCO2 POC ABG pO2 ABG pO2 ABG HCO3 ABG Base Excess ABG Hemoglobin Oxyhemoglobin Sodium 135 L Potassium Chloride Carbon Dioxide BUN 101 H Creatinine 1.8 H Glucose 117 H POC Glucose 130 H 143 H Lactic Acid Calcium Ionized Calcium Phosphorus 5.80 H Magnesium Direct Bilirubin AST ALT Alkaline Phosphatase Lactate Dehydrogenase Troponin T C-Reactive Protein Total Protein Albumin Prealbumin Triglycerides Cholesterol LDL Cholesterol Direct HDL Cholesterol 25-OH Vitamin D Total PTH Intact Urine pH Urine WBC (Auto) Urine Creatinine Urine Total Protein Fluid Total Protein Vancomycin Trough Rheumatoid Factor Complement C4 Miscellaneous Test Crossmatch 01/17/17 01/17/17 01/17/17 05:30 05:46 11:49 WBC RBC Hgb Hct MCV MCH MCHC RDW Plt Count Lymph % (Auto) [place] % (Auto) Lymph # [place] # Baso # Seg Neutrophils % Seg Neuts % (Manual) Lymphocytes % (Manual) Monocytes % (Manual) Eosinophils % (Manual) Basophils % (Manual) Nucleated RBC % Seg Neutrophils # Seg Neutrophils # Man Lymphocytes # (Manual) Monocytes # (Manual) Eosinophils # (Manual) Basophils # (Manual) PT INR Fibrinogen dRVVT Confirm Interp Factor V Activity POC ABG pH POC ABG pCO2 POC ABG pO2 ABG pO2 ABG HCO3 ABG Base Excess ABG Hemoglobin Oxyhemoglobin Sodium 134 L Potassium Chloride 95.8 L Carbon Dioxide BUN 66 H Creatinine 1.3 H Glucose 138 H POC Glucose 147 H 124 H Lactic Acid Calcium Ionized Calcium Phosphorus Magnesium Direct Bilirubin AST ALT Alkaline Phosphatase 254 H Lactate Dehydrogenase Troponin T C-Reactive Protein Total Protein Albumin 1.3 L Prealbumin Triglycerides Cholesterol LDL Cholesterol Direct HDL Cholesterol 25-OH Vitamin D Total PTH Intact Urine pH Urine WBC (Auto) Urine Creatinine Urine Total Protein Fluid Total Protein Vancomycin Trough Rheumatoid Factor Complement C4 Miscellaneous Test Crossmatch 01/17/17 01/17/17 01/18/17 17:30 23:41 05:15 WBC RBC Hgb Hct MCV MCH MCHC RDW Plt Count Lymph % (Auto) [place] % (Auto) Lymph # [place] # Baso # Seg Neutrophils % Seg Neuts % (Manual) Lymphocytes % (Manual) Monocytes % (Manual) Eosinophils % (Manual) Basophils % (Manual) Nucleated RBC % Seg Neutrophils # Seg Neutrophils # Man Lymphocytes # (Manual) Monocytes # (Manual) Eosinophils # (Manual) Basophils # (Manual) PT INR Fibrinogen dRVVT Confirm Interp Factor V Activity POC ABG pH POC ABG pCO2 POC ABG pO2 ABG pO2 ABG HCO3 ABG Base Excess ABG Hemoglobin Oxyhemoglobin Sodium Potassium Chloride Carbon Dioxide BUN 89 H Creatinine 1.7 H Glucose 118 H POC Glucose 137 H 119 H Lactic Acid Calcium Ionized Calcium Phosphorus Magnesium Direct Bilirubin AST ALT Alkaline Phosphatase Lactate Dehydrogenase Troponin T C-Reactive Protein Total Protein Albumin Prealbumin Triglycerides Cholesterol LDL Cholesterol Direct HDL Cholesterol 25-OH Vitamin D Total PTH Intact Urine pH Urine WBC (Auto) Urine Creatinine Urine Total Protein Fluid Total Protein Vancomycin Trough Rheumatoid Factor Complement C4 Miscellaneous Test Crossmatch 01/18/17 01/18/17 01/18/17 05:19 12:16 18:11 WBC RBC Hgb Hct MCV MCH MCHC RDW Plt Count Lymph % (Auto) [place] % (Auto) Lymph # [place] # Baso # Seg Neutrophils % Seg Neuts % (Manual) Lymphocytes % (Manual) Monocytes % (Manual) Eosinophils % (Manual) Basophils % (Manual) Nucleated RBC % Seg Neutrophils # Seg Neutrophils # Man Lymphocytes # (Manual) Monocytes # (Manual) Eosinophils # (Manual) Basophils # (Manual) PT INR Fibrinogen dRVVT Confirm Interp Factor V Activity POC ABG pH POC ABG pCO2 POC ABG pO2 ABG pO2 ABG HCO3 ABG Base Excess ABG Hemoglobin Oxyhemoglobin Sodium Potassium Chloride Carbon Dioxide BUN Creatinine Glucose POC Glucose 134 H 188 H 113 H Lactic Acid Calcium Ionized Calcium Phosphorus Magnesium Direct Bilirubin AST ALT Alkaline Phosphatase Lactate Dehydrogenase Troponin T C-Reactive Protein Total Protein Albumin Prealbumin Triglycerides Cholesterol LDL Cholesterol Direct HDL Cholesterol 25-OH Vitamin D Total PTH Intact Urine pH Urine WBC (Auto) Urine Creatinine Urine Total Protein Fluid Total Protein Vancomycin Trough Rheumatoid Factor Complement C4 Miscellaneous Test Crossmatch 01/19/17 01/19/17 01/19/17 00:00 05:30 05:36 WBC RBC Hgb Hct MCV MCH MCHC RDW Plt Count Lymph % (Auto) [place] % (Auto) Lymph # [place] # Baso # Seg Neutrophils % Seg Neuts % (Manual) Lymphocytes % (Manual) Monocytes % (Manual) Eosinophils % (Manual) Basophils % (Manual) Nucleated RBC % Seg Neutrophils # Seg Neutrophils # Man Lymphocytes # (Manual) Monocytes # (Manual) Eosinophils # (Manual) Basophils # (Manual) PT INR Fibrinogen dRVVT Confirm Interp Factor V Activity POC ABG pH POC ABG pCO2 POC ABG pO2 ABG pO2 ABG HCO3 ABG Base Excess ABG Hemoglobin Oxyhemoglobin Sodium Potassium Chloride Carbon Dioxide BUN 70 H Creatinine 1.5 H Glucose 121 H POC Glucose 137 H 155 H Lactic Acid Calcium Ionized Calcium Phosphorus 2.10 L D Magnesium Direct Bilirubin AST ALT Alkaline Phosphatase Lactate Dehydrogenase Troponin T C-Reactive Protein Total Protein Albumin Prealbumin Triglycerides Cholesterol LDL Cholesterol Direct HDL Cholesterol 25-OH Vitamin D Total PTH Intact Urine pH Urine WBC (Auto) Urine Creatinine Urine Total Protein Fluid Total Protein Vancomycin Trough Rheumatoid Factor Complement C4 Miscellaneous Test Crossmatch 01/19/17 01/19/17 01/19/17 11:59 15:32 17:57 WBC RBC Hgb Hct MCV MCH MCHC RDW Plt Count Lymph % (Auto) [place] % (Auto) Lymph # [place] # Baso # Seg Neutrophils % Seg Neuts % (Manual) Lymphocytes % (Manual) Monocytes % (Manual) Eosinophils % (Manual) Basophils % (Manual) Nucleated RBC % Seg Neutrophils # Seg Neutrophils # Man Lymphocytes # (Manual) Monocytes # (Manual) Eosinophils # (Manual) Basophils # (Manual) PT INR Fibrinogen dRVVT Confirm Interp Factor V Activity POC ABG pH POC ABG pCO2 33.1 L POC ABG pO2 76 L ABG pO2 ABG HCO3 ABG Base Excess ABG Hemoglobin Oxyhemoglobin Sodium Potassium Chloride Carbon Dioxide BUN Creatinine Glucose POC Glucose 156 H 129 H Lactic Acid Calcium Ionized Calcium Phosphorus Magnesium Direct Bilirubin AST ALT Alkaline Phosphatase Lactate Dehydrogenase Troponin T C-Reactive Protein Total Protein Albumin Prealbumin Triglycerides Cholesterol LDL Cholesterol Direct HDL Cholesterol 25-OH Vitamin D Total PTH Intact Urine pH Urine WBC (Auto) Urine Creatinine Urine Total Protein Fluid Total Protein Vancomycin Trough Rheumatoid Factor Complement C4 Miscellaneous Test Crossmatch 01/19/17 01/20/17 01/20/17 23:49 04:00 05:21 WBC RBC Hgb Hct MCV MCH MCHC RDW Plt Count Lymph % (Auto) [place] % (Auto) Lymph # [place] # Baso # Seg Neutrophils % Seg Neuts % (Manual) Lymphocytes % (Manual) Monocytes % (Manual) Eosinophils % (Manual) Basophils % (Manual) Nucleated RBC % Seg Neutrophils # Seg Neutrophils # Man Lymphocytes # (Manual) Monocytes # (Manual) Eosinophils # (Manual) Basophils # (Manual) PT INR Fibrinogen dRVVT Confirm Interp Factor V Activity POC ABG pH POC ABG pCO2 POC ABG pO2 ABG pO2 ABG HCO3 ABG Base Excess ABG Hemoglobin Oxyhemoglobin Sodium Potassium Chloride Carbon Dioxide BUN 96 H Creatinine 1.9 H Glucose 106 H POC Glucose 125 H 130 H Lactic Acid Calcium Ionized Calcium Phosphorus 2.40 L Magnesium Direct Bilirubin AST ALT Alkaline Phosphatase Lactate Dehydrogenase Troponin T C-Reactive Protein Total Protein Albumin Prealbumin Triglycerides Cholesterol LDL Cholesterol Direct HDL Cholesterol 25-OH Vitamin D Total PTH Intact Urine pH Urine WBC (Auto) Urine Creatinine Urine Total Protein Fluid Total Protein Vancomycin Trough Rheumatoid Factor Complement C4 Miscellaneous Test Crossmatch 01/20/17 01/20/17 01/20/17 11:58 12:17 17:26 WBC RBC Hgb Hct MCV MCH MCHC RDW Plt Count Lymph % (Auto) [place] % (Auto) Lymph # [place] # Baso # Seg Neutrophils % Seg Neuts % (Manual) Lymphocytes % (Manual) Monocytes % (Manual) Eosinophils % (Manual) Basophils % (Manual) Nucleated RBC % Seg Neutrophils # Seg Neutrophils # Man Lymphocytes # (Manual) Monocytes # (Manual) Eosinophils # (Manual) Basophils # (Manual) PT INR Fibrinogen dRVVT Confirm Interp Factor V Activity POC ABG pH POC ABG pCO2 POC ABG pO2 70 L ABG pO2 ABG HCO3 ABG Base Excess ABG Hemoglobin Oxyhemoglobin Sodium Potassium Chloride Carbon Dioxide BUN Creatinine Glucose POC Glucose 118 H 154 H Lactic Acid Calcium Ionized Calcium Phosphorus Magnesium Direct Bilirubin AST ALT Alkaline Phosphatase Lactate Dehydrogenase Troponin T C-Reactive Protein Total Protein Albumin Prealbumin Triglycerides Cholesterol LDL Cholesterol Direct HDL Cholesterol 25-OH Vitamin D Total PTH Intact Urine pH Urine WBC (Auto) Urine Creatinine Urine Total Protein Fluid Total Protein Vancomycin Trough Rheumatoid Factor Complement C4 Miscellaneous Test Crossmatch 01/21/17 01/21/17 01/21/17 04:00 04:56 11:46 WBC RBC Hgb Hct MCV MCH MCHC RDW Plt Count Lymph % (Auto) [place] % (Auto) Lymph # [place] # Baso # Seg Neutrophils % Seg Neuts % (Manual) Lymphocytes % (Manual) Monocytes % (Manual) Eosinophils % (Manual) Basophils % (Manual) Nucleated RBC % Seg Neutrophils # Seg Neutrophils # Man Lymphocytes # (Manual) Monocytes # (Manual) Eosinophils # (Manual) Basophils # (Manual) PT INR Fibrinogen dRVVT Confirm Interp Factor V Activity POC ABG pH POC ABG pCO2 POC ABG pO2 ABG pO2 ABG HCO3 ABG Base Excess ABG Hemoglobin Oxyhemoglobin Sodium Potassium 3.5 L Chloride 97.4 L Carbon Dioxide BUN 66 H Creatinine 1.4 H Glucose POC Glucose 116 H 106 H Lactic Acid Calcium Ionized Calcium Phosphorus 2.10 L Magnesium Direct Bilirubin AST ALT Alkaline Phosphatase Lactate Dehydrogenase Troponin T C-Reactive Protein Total Protein Albumin Prealbumin Triglycerides Cholesterol LDL Cholesterol Direct HDL Cholesterol 25-OH Vitamin D Total PTH Intact Urine pH Urine WBC (Auto) Urine Creatinine Urine Total Protein Fluid Total Protein Vancomycin Trough Rheumatoid Factor Complement C4 Miscellaneous Test Crossmatch 01/21/17 01/21/17 01/22/17 17:25 23:49 05:35 WBC RBC Hgb Hct MCV MCH MCHC RDW Plt Count Lymph % (Auto) [place] % (Auto) Lymph # [place] # Baso # Seg Neutrophils % Seg Neuts % (Manual) Lymphocytes % (Manual) Monocytes % (Manual) Eosinophils % (Manual) Basophils % (Manual) Nucleated RBC % Seg Neutrophils # Seg Neutrophils # Man Lymphocytes # (Manual) Monocytes # (Manual) Eosinophils # (Manual) Basophils # (Manual) PT INR Fibrinogen dRVVT Confirm Interp Factor V Activity POC ABG pH POC ABG pCO2 POC ABG pO2 ABG pO2 ABG HCO3 ABG Base Excess ABG Hemoglobin Oxyhemoglobin Sodium Potassium Chloride Carbon Dioxide BUN Creatinine Glucose POC Glucose 106 H 133 H 107 H Lactic Acid Calcium Ionized Calcium Phosphorus Magnesium Direct Bilirubin AST ALT Alkaline Phosphatase Lactate Dehydrogenase Troponin T C-Reactive Protein Total Protein Albumin Prealbumin Triglycerides Cholesterol LDL Cholesterol Direct HDL Cholesterol 25-OH Vitamin D Total PTH Intact Urine pH Urine WBC (Auto) Urine Creatinine Urine Total Protein Fluid Total Protein Vancomycin Trough Rheumatoid Factor Complement C4 Miscellaneous Test Crossmatch 01/22/17 01/22/17 01/22/17 07:20 07:20 11:31 WBC RBC 2.75 L Hgb 7.5 L Hct 22.7 L MCV MCH 27 L MCHC RDW 17.5 H Plt Count Lymph % (Auto) [place] % (Auto) Lymph # [place] # Baso # Seg Neutrophils % Seg Neuts % (Manual) Lymphocytes % (Manual) Monocytes % (Manual) Eosinophils % (Manual) Basophils % (Manual) Nucleated RBC % Seg Neutrophils # Seg Neutrophils # Man Lymphocytes # (Manual) Monocytes # (Manual) Eosinophils # (Manual) Basophils # (Manual) PT INR Fibrinogen dRVVT Confirm Interp Factor V Activity POC ABG pH POC ABG pCO2 POC ABG pO2 ABG pO2 ABG HCO3 ABG Base Excess ABG Hemoglobin Oxyhemoglobin Sodium Potassium 3.3 L Chloride Carbon Dioxide BUN 42 H Creatinine Glucose 105 H POC Glucose 124 H Lactic Acid Calcium Ionized Calcium Phosphorus 1.70 L Magnesium Direct Bilirubin AST ALT Alkaline Phosphatase Lactate Dehydrogenase Troponin T C-Reactive Protein Total Protein Albumin Prealbumin Triglycerides Cholesterol LDL Cholesterol Direct HDL Cholesterol 25-OH Vitamin D Total PTH Intact Urine pH Urine WBC (Auto) Urine Creatinine Urine Total Protein Fluid Total Protein Vancomycin Trough Rheumatoid Factor Complement C4 Miscellaneous Test Crossmatch 01/22/17 01/22/17 01/23/17 17:16 23:35 05:35 WBC RBC Hgb Hct MCV MCH MCHC RDW Plt Count Lymph % (Auto) [place] % (Auto) Lymph # [place] # Baso # Seg Neutrophils % Seg Neuts % (Manual) Lymphocytes % (Manual) Monocytes % (Manual) Eosinophils % (Manual) Basophils % (Manual) Nucleated RBC % Seg Neutrophils # Seg Neutrophils # Man Lymphocytes # (Manual) Monocytes # (Manual) Eosinophils # (Manual) Basophils # (Manual) PT INR Fibrinogen dRVVT Confirm Interp Factor V Activity POC ABG pH POC ABG pCO2 POC ABG pO2 ABG pO2 ABG HCO3 ABG Base Excess ABG Hemoglobin Oxyhemoglobin Sodium Potassium Chloride Carbon Dioxide BUN Creatinine Glucose POC Glucose 135 H 120 H 111 H Lactic Acid Calcium Ionized Calcium Phosphorus Magnesium Direct Bilirubin AST ALT Alkaline Phosphatase Lactate Dehydrogenase Troponin T C-Reactive Protein Total Protein Albumin Prealbumin Triglycerides Cholesterol LDL Cholesterol Direct HDL Cholesterol 25-OH Vitamin D Total PTH Intact Urine pH Urine WBC (Auto) Urine Creatinine Urine Total Protein Fluid Total Protein Vancomycin Trough Rheumatoid Factor Complement C4 Miscellaneous Test Crossmatch 01/23/17 01/23/17 01/23/17 06:10 17:27 23:44 WBC RBC Hgb Hct MCV MCH MCHC RDW Plt Count Lymph % (Auto) [place] % (Auto) Lymph # [place] # Baso # Seg Neutrophils % Seg Neuts % (Manual) Lymphocytes % (Manual) Monocytes % (Manual) Eosinophils % (Manual) Basophils % (Manual) Nucleated RBC % Seg Neutrophils # Seg Neutrophils # Man Lymphocytes # (Manual) Monocytes # (Manual) Eosinophils # (Manual) Basophils # (Manual) PT INR Fibrinogen dRVVT Confirm Interp Factor V Activity POC ABG pH POC ABG pCO2 POC ABG pO2 ABG pO2 ABG HCO3 ABG Base Excess ABG Hemoglobin Oxyhemoglobin Sodium Potassium 3.3 L Chloride Carbon Dioxide BUN 66 H Creatinine 1.3 H Glucose 109 H POC Glucose 120 H 115 H Lactic Acid Calcium Ionized Calcium Phosphorus 2.20 L D Magnesium Direct Bilirubin AST ALT Alkaline Phosphatase Lactate Dehydrogenase Troponin T C-Reactive Protein Total Protein Albumin Prealbumin Triglycerides Cholesterol LDL Cholesterol Direct HDL Cholesterol 25-OH Vitamin D Total PTH Intact Urine pH Urine WBC (Auto) Urine Creatinine Urine Total Protein Fluid Total Protein Vancomycin Trough Rheumatoid Factor Complement C4 Miscellaneous Test Crossmatch 01/24/17 01/24/17 01/24/17 05:19 05:50 12:19 WBC RBC Hgb Hct MCV MCH MCHC RDW Plt Count Lymph % (Auto) [place] % (Auto) Lymph # [place] # Baso # Seg Neutrophils % Seg Neuts % (Manual) Lymphocytes % (Manual) Monocytes % (Manual) Eosinophils % (Manual) Basophils % (Manual) Nucleated RBC % Seg Neutrophils # Seg Neutrophils # Man Lymphocytes # (Manual) Monocytes # (Manual) Eosinophils # (Manual) Basophils # (Manual) PT INR Fibrinogen dRVVT Confirm Interp Factor V Activity POC ABG pH POC ABG pCO2 POC ABG pO2 ABG pO2 ABG HCO3 ABG Base Excess ABG Hemoglobin Oxyhemoglobin Sodium Potassium Chloride Carbon Dioxide BUN 47 H Creatinine Glucose 117 H POC Glucose 126 H 119 H Lactic Acid Calcium Ionized Calcium Phosphorus 2.30 L Magnesium 1.60 L Direct Bilirubin AST ALT Alkaline Phosphatase Lactate Dehydrogenase Troponin T C-Reactive Protein Total Protein Albumin Prealbumin Triglycerides Cholesterol LDL Cholesterol Direct HDL Cholesterol 25-OH Vitamin D Total PTH Intact Urine pH Urine WBC (Auto) Urine Creatinine Urine Total Protein Fluid Total Protein Vancomycin Trough Rheumatoid Factor Complement C4 Miscellaneous Test Crossmatch 01/24/17 01/25/17 01/25/17 17:08 00:37 04:00 WBC RBC Hgb Hct MCV MCH MCHC RDW Plt Count Lymph % (Auto) [place] % (Auto) Lymph # [place] # Baso # Seg Neutrophils % Seg Neuts % (Manual) Lymphocytes % (Manual) Monocytes % (Manual) Eosinophils % (Manual) Basophils % (Manual) Nucleated RBC % Seg Neutrophils # Seg Neutrophils # Man Lymphocytes # (Manual) Monocytes # (Manual) Eosinophils # (Manual) Basophils # (Manual) PT INR Fibrinogen dRVVT Confirm Interp Factor V Activity POC ABG pH POC ABG pCO2 POC ABG pO2 ABG pO2 ABG HCO3 ABG Base Excess ABG Hemoglobin Oxyhemoglobin Sodium Potassium Chloride Carbon Dioxide BUN 72 H Creatinine 1.3 H Glucose POC Glucose 127 H 110 H Lactic Acid Calcium Ionized Calcium Phosphorus Magnesium Direct Bilirubin AST ALT Alkaline Phosphatase Lactate Dehydrogenase Troponin T C-Reactive Protein Total Protein Albumin Prealbumin Triglycerides Cholesterol LDL Cholesterol Direct HDL Cholesterol 25-OH Vitamin D Total PTH Intact Urine pH Urine WBC (Auto) Urine Creatinine Urine Total Protein Fluid Total Protein Vancomycin Trough Rheumatoid Factor Complement C4 Miscellaneous Test Crossmatch 01/25/17 01/25/17 01/25/17 04:00 11:15 13:05 WBC RBC 2.49 L Hgb 6.7 L Hct 20.9 L MCV MCH 27 L MCHC RDW 18.8 H Plt Count Lymph % (Auto) [place] % (Auto) 10.1 H Lymph # [place] # 1.0 H Baso # Seg Neutrophils % Seg Neuts % (Manual) Lymphocytes % (Manual) Monocytes % (Manual) Eosinophils % (Manual) Basophils % (Manual) Nucleated RBC % Seg Neutrophils # Seg Neutrophils # Man Lymphocytes # (Manual) Monocytes # (Manual) Eosinophils # (Manual) Basophils # (Manual) PT INR Fibrinogen dRVVT Confirm Interp Factor V Activity POC ABG pH POC ABG pCO2 POC ABG pO2 ABG pO2 ABG HCO3 ABG Base Excess ABG Hemoglobin Oxyhemoglobin Sodium Potassium Chloride Carbon Dioxide BUN Creatinine Glucose POC Glucose 128 H Lactic Acid Calcium Ionized Calcium Phosphorus Magnesium Direct Bilirubin AST ALT Alkaline Phosphatase Lactate Dehydrogenase Troponin T C-Reactive Protein Total Protein Albumin Prealbumin Triglycerides Cholesterol LDL Cholesterol Direct HDL Cholesterol 25-OH Vitamin D Total PTH Intact Urine pH Urine WBC (Auto) Urine Creatinine Urine Total Protein Fluid Total Protein Vancomycin Trough Rheumatoid Factor Complement C4 Miscellaneous Test Crossmatch See Detail 01/25/17 01/25/17 01/26/17 18:02 23:07 01:20 WBC RBC Hgb Hct MCV MCH MCHC RDW Plt Count Lymph % (Auto) [place] % (Auto) Lymph # [place] # Baso # Seg Neutrophils % Seg Neuts % (Manual) Lymphocytes % (Manual) Monocytes % (Manual) Eosinophils % (Manual) Basophils % (Manual) Nucleated RBC % Seg Neutrophils # Seg Neutrophils # Man Lymphocytes # (Manual) Monocytes # (Manual) Eosinophils # (Manual) Basophils # (Manual) PT INR Fibrinogen dRVVT Confirm Interp Factor V Activity POC ABG pH POC ABG pCO2 POC ABG pO2 ABG pO2 ABG HCO3 ABG Base Excess ABG Hemoglobin Oxyhemoglobin Sodium Potassium Chloride Carbon Dioxide BUN Creatinine Glucose POC Glucose 120 H 123 H 112 H Lactic Acid Calcium Ionized Calcium Phosphorus Magnesium Direct Bilirubin AST ALT Alkaline Phosphatase Lactate Dehydrogenase Troponin T C-Reactive Protein Total Protein Albumin Prealbumin Triglycerides Cholesterol LDL Cholesterol Direct HDL Cholesterol 25-OH Vitamin D Total PTH Intact Urine pH Urine WBC (Auto) Urine Creatinine Urine Total Protein Fluid Total Protein Vancomycin Trough Rheumatoid Factor Complement C4 Miscellaneous Test Crossmatch 01/26/17 01/26/17 01/26/17 04:20 04:20 11:23 WBC 13.1 H RBC 3.28 L Hgb 9.0 L Hct 26.9 L D MCV MCH 27 L MCHC RDW 17.2 H Plt Count Lymph % (Auto) [place] % (Auto) 9.0 H Lymph # [place] # 1.2 H Baso # Seg Neutrophils % 73.1 H Seg Neuts % (Manual) Lymphocytes % (Manual) Monocytes % (Manual) Eosinophils % (Manual) Basophils % (Manual) Nucleated RBC % Seg Neutrophils # 9.6 H Seg Neutrophils # Man Lymphocytes # (Manual) Monocytes # (Manual) Eosinophils # (Manual) Basophils # (Manual) PT INR Fibrinogen dRVVT Confirm Interp Factor V Activity POC ABG pH POC ABG pCO2 POC ABG pO2 ABG pO2 ABG HCO3 ABG Base Excess ABG Hemoglobin Oxyhemoglobin Sodium Potassium Chloride Carbon Dioxide BUN 51 H Creatinine Glucose 117 H POC Glucose 125 H Lactic Acid Calcium Ionized Calcium Phosphorus Magnesium Direct Bilirubin AST ALT Alkaline Phosphatase Lactate Dehydrogenase Troponin T C-Reactive Protein Total Protein Albumin Prealbumin Triglycerides Cholesterol LDL Cholesterol Direct HDL Cholesterol 25-OH Vitamin D Total PTH Intact Urine pH Urine WBC (Auto) Urine Creatinine Urine Total Protein Fluid Total Protein Vancomycin Trough Rheumatoid Factor Complement C4 Miscellaneous Test Crossmatch 01/26/17 01/27/17 01/27/17 17:11 00:30 04:00 WBC RBC Hgb Hct MCV MCH MCHC RDW Plt Count Lymph % (Auto) [place] % (Auto) Lymph # [place] # Baso # Seg Neutrophils % Seg Neuts % (Manual) Lymphocytes % (Manual) Monocytes % (Manual) Eosinophils % (Manual) Basophils % (Manual) Nucleated RBC % Seg Neutrophils # Seg Neutrophils # Man Lymphocytes # (Manual) Monocytes # (Manual) Eosinophils # (Manual) Basophils # (Manual) PT INR Fibrinogen dRVVT Confirm Interp Factor V Activity POC ABG pH POC ABG pCO2 POC ABG pO2 ABG pO2 ABG HCO3 ABG Base Excess ABG Hemoglobin Oxyhemoglobin Sodium Potassium Chloride 97.7 L Carbon Dioxide 21 L BUN 79 H Creatinine 1.7 H D Glucose 112 H POC Glucose 133 H 135 H Lactic Acid Calcium Ionized Calcium Phosphorus 5.00 H D Magnesium Direct Bilirubin AST ALT Alkaline Phosphatase Lactate Dehydrogenase Troponin T C-Reactive Protein Total Protein Albumin Prealbumin Triglycerides Cholesterol LDL Cholesterol Direct HDL Cholesterol 25-OH Vitamin D Total PTH Intact Urine pH Urine WBC (Auto) Urine Creatinine Urine Total Protein Fluid Total Protein Vancomycin Trough Rheumatoid Factor Complement C4 Miscellaneous Test Crossmatch 01/27/17 01/27/17 01/27/17 05:12 12:18 17:25 WBC RBC Hgb Hct MCV MCH MCHC RDW Plt Count Lymph % (Auto) [place] % (Auto) Lymph # [place] # Baso # Seg Neutrophils % Seg Neuts % (Manual) Lymphocytes % (Manual) Monocytes % (Manual) Eosinophils % (Manual) Basophils % (Manual) Nucleated RBC % Seg Neutrophils # Seg Neutrophils # Man Lymphocytes # (Manual) Monocytes # (Manual) Eosinophils # (Manual) Basophils # (Manual) PT INR Fibrinogen dRVVT Confirm Interp Factor V Activity POC ABG pH POC ABG pCO2 POC ABG pO2 ABG pO2 ABG HCO3 ABG Base Excess ABG Hemoglobin Oxyhemoglobin Sodium Potassium Chloride Carbon Dioxide BUN Creatinine Glucose POC Glucose 116 H 153 H 152 H Lactic Acid Calcium Ionized Calcium Phosphorus Magnesium Direct Bilirubin AST ALT Alkaline Phosphatase Lactate Dehydrogenase Troponin T C-Reactive Protein Total Protein Albumin Prealbumin Triglycerides Cholesterol LDL Cholesterol Direct HDL Cholesterol 25-OH Vitamin D Total PTH Intact Urine pH Urine WBC (Auto) Urine Creatinine Urine Total Protein Fluid Total Protein Vancomycin Trough Rheumatoid Factor Complement C4 Miscellaneous Test Crossmatch 01/27/17 01/28/17 01/28/17 23:42 04:00 04:00 WBC 14.4 H RBC 2.82 L Hgb 7.4 L Hct 23.5 L MCV MCH 26 L MCHC RDW 17.6 H Plt Count Lymph % (Auto) 10.[address] [place] % (Auto) 11.0 H Lymph # [place] # 1.6 H Baso # Seg Neutrophils % 78.0 H Seg Neuts % (Manual) Lymphocytes % (Manual) Monocytes % (Manual) Eosinophils % (Manual) Basophils % (Manual) Nucleated RBC % Seg Neutrophils # 11.3 H Seg Neutrophils # Man Lymphocytes # (Manual) Monocytes # (Manual) Eosinophils # (Manual) Basophils # (Manual) PT INR Fibrinogen dRVVT Confirm Interp Factor V Activity POC ABG pH POC ABG pCO2 POC ABG pO2 ABG pO2 ABG HCO3 ABG Base Excess ABG Hemoglobin Oxyhemoglobin Sodium Potassium Chloride Carbon Dioxide BUN 55 H Creatinine 1.3 H Glucose 114 H POC Glucose 121 H Lactic Acid Calcium Ionized Calcium Phosphorus Magnesium Direct Bilirubin AST ALT Alkaline Phosphatase Lactate Dehydrogenase Troponin T C-Reactive Protein Total Protein Albumin 1.4 L Prealbumin Triglycerides Cholesterol LDL Cholesterol Direct HDL Cholesterol 25-OH Vitamin D Total PTH Intact Urine pH Urine WBC (Auto) Urine Creatinine Urine Total Protein Fluid Total Protein Vancomycin Trough Rheumatoid Factor Complement C4 Miscellaneous Test Crossmatch 01/28/17 01/28/17 01/29/17 04:59 12:30 00:02 WBC RBC Hgb Hct MCV MCH MCHC RDW Plt Count Lymph % (Auto) [place] % (Auto) Lymph # [place] # Baso # Seg Neutrophils % Seg Neuts % (Manual) Lymphocytes % (Manual) Monocytes % (Manual) Eosinophils % (Manual) Basophils % (Manual) Nucleated RBC % Seg Neutrophils # Seg Neutrophils # Man Lymphocytes # (Manual) Monocytes # (Manual) Eosinophils # (Manual) Basophils # (Manual) PT INR Fibrinogen dRVVT Confirm Interp Factor V Activity POC ABG pH POC ABG pCO2 POC ABG pO2 ABG pO2 ABG HCO3 ABG Base Excess ABG Hemoglobin Oxyhemoglobin Sodium Potassium Chloride Carbon Dioxide BUN Creatinine Glucose POC Glucose 126 H 119 H 138 H Lactic Acid Calcium Ionized Calcium Phosphorus Magnesium Direct Bilirubin AST ALT Alkaline Phosphatase Lactate Dehydrogenase Troponin T C-Reactive Protein Total Protein Albumin Prealbumin Triglycerides Cholesterol LDL Cholesterol Direct HDL Cholesterol 25-OH Vitamin D Total PTH Intact Urine pH Urine WBC (Auto) Urine Creatinine Urine Total Protein Fluid Total Protein Vancomycin Trough Rheumatoid Factor Complement C4 Miscellaneous Test Crossmatch 01/29/17 01/29/17 01/29/17 04:58 06:15 11:35 WBC RBC Hgb Hct MCV MCH MCHC RDW Plt Count Lymph % (Auto) [place] % (Auto) Lymph # [place] # Baso # Seg Neutrophils % Seg Neuts % (Manual) Lymphocytes % (Manual) Monocytes % (Manual) Eosinophils % (Manual) Basophils % (Manual) Nucleated RBC % Seg Neutrophils # Seg Neutrophils # Man Lymphocytes # (Manual) Monocytes # (Manual) Eosinophils # (Manual) Basophils # (Manual) PT INR Fibrinogen dRVVT Confirm Interp Factor V Activity POC ABG pH POC ABG pCO2 POC ABG pO2 ABG pO2 ABG HCO3 ABG Base Excess ABG Hemoglobin Oxyhemoglobin Sodium Potassium Chloride Carbon Dioxide BUN 85 H Creatinine 1.7 H Glucose 105 H POC Glucose 114 H 110 H Lactic Acid Calcium Ionized Calcium Phosphorus Magnesium 2.40 H Direct Bilirubin AST ALT Alkaline Phosphatase Lactate Dehydrogenase Troponin T C-Reactive Protein Total Protein Albumin Prealbumin Triglycerides Cholesterol LDL Cholesterol Direct HDL Cholesterol 25-OH Vitamin D Total PTH Intact Urine pH Urine WBC (Auto) Urine Creatinine Urine Total Protein Fluid Total Protein Vancomycin Trough Rheumatoid Factor Complement C4 Miscellaneous Test Crossmatch 01/29/17 01/29/17 01/30/17 18:24 23:41 05:12 WBC RBC Hgb Hct MCV MCH MCHC RDW Plt Count Lymph % (Auto) [place] % (Auto) Lymph # [place] # Baso # Seg Neutrophils % Seg Neuts % (Manual) Lymphocytes % (Manual) Monocytes % (Manual) Eosinophils % (Manual) Basophils % (Manual) Nucleated RBC % Seg Neutrophils # Seg Neutrophils # Man Lymphocytes # (Manual) Monocytes # (Manual) Eosinophils # (Manual) Basophils # (Manual) PT INR Fibrinogen dRVVT Confirm Interp Factor V Activity POC ABG pH POC ABG pCO2 POC ABG pO2 ABG pO2 ABG HCO3 ABG Base Excess ABG Hemoglobin Oxyhemoglobin Sodium Potassium Chloride Carbon Dioxide BUN Creatinine Glucose POC Glucose 109 H 134 H 109 H Lactic Acid Calcium Ionized Calcium Phosphorus Magnesium Direct Bilirubin AST ALT Alkaline Phosphatase Lactate Dehydrogenase Troponin T C-Reactive Protein Total Protein Albumin Prealbumin Triglycerides Cholesterol LDL Cholesterol Direct HDL Cholesterol 25-OH Vitamin D Total PTH Intact Urine pH Urine WBC (Auto) Urine Creatinine Urine Total Protein Fluid Total Protein Vancomycin Trough Rheumatoid Factor Complement C4 Miscellaneous Test Crossmatch 01/30/17 01/30/17 01/30/17 11:26 17:43 23:39 WBC RBC Hgb Hct MCV MCH MCHC RDW Plt Count Lymph % (Auto) [place] % (Auto) Lymph # [place] # Baso # Seg Neutrophils % Seg Neuts % (Manual) Lymphocytes % (Manual) Monocytes % (Manual) Eosinophils % (Manual) Basophils % (Manual) Nucleated RBC % Seg Neutrophils # Seg Neutrophils # Man Lymphocytes # (Manual) Monocytes # (Manual) Eosinophils # (Manual) Basophils # (Manual) PT INR Fibrinogen dRVVT Confirm Interp Factor V Activity POC ABG pH POC ABG pCO2 POC ABG pO2 ABG pO2 ABG HCO3 ABG Base Excess ABG Hemoglobin Oxyhemoglobin Sodium Potassium Chloride Carbon Dioxide BUN Creatinine Glucose POC Glucose 135 H 143 H 122 H Lactic Acid Calcium Ionized Calcium Phosphorus Magnesium Direct Bilirubin AST ALT Alkaline Phosphatase Lactate Dehydrogenase Troponin T C-Reactive Protein Total Protein Albumin Prealbumin Triglycerides Cholesterol LDL Cholesterol Direct HDL Cholesterol 25-OH Vitamin D Total PTH Intact Urine pH Urine WBC (Auto) Urine Creatinine Urine Total Protein Fluid Total Protein Vancomycin Trough Rheumatoid Factor Complement C4 Miscellaneous Test Crossmatch 01/31/17 01/31/17 01/31/17 04:00 05:40 11:12 WBC RBC Hgb Hct MCV MCH MCHC RDW Plt Count Lymph % (Auto) [place] % (Auto) Lymph # [place] # Baso # Seg Neutrophils % Seg Neuts % (Manual) Lymphocytes % (Manual) Monocytes % (Manual) Eosinophils % (Manual) Basophils % (Manual) Nucleated RBC % Seg Neutrophils # Seg Neutrophils # Man Lymphocytes # (Manual) Monocytes # (Manual) Eosinophils # (Manual) Basophils # (Manual) PT INR Fibrinogen dRVVT Confirm Interp Factor V Activity POC ABG pH POC ABG pCO2 POC ABG pO2 ABG pO2 ABG HCO3 ABG Base Excess ABG Hemoglobin Oxyhemoglobin Sodium Potassium Chloride Carbon Dioxide BUN 78 H Creatinine 1.5 H Glucose 108 H POC Glucose 123 H Lactic Acid Calcium Ionized Calcium Phosphorus Magnesium Direct Bilirubin AST ALT Alkaline Phosphatase Lactate Dehydrogenase Troponin T C-Reactive Protein 8.10 H Total Protein Albumin Prealbumin Triglycerides Cholesterol LDL Cholesterol Direct HDL Cholesterol 25-OH Vitamin D Total PTH Intact Urine pH Urine WBC (Auto) Urine Creatinine Urine Total Protein Fluid Total Protein Vancomycin Trough Rheumatoid Factor Complement C4 Miscellaneous Test Crossmatch 01/31/17 01/31/17 01/31/17 11:16 17:45 17:50 WBC RBC Hgb Hct MCV MCH MCHC RDW Plt Count Lymph % (Auto) [place] % (Auto) Lymph # [place] # Baso # Seg Neutrophils % Seg Neuts % (Manual) Lymphocytes % (Manual) Monocytes % (Manual) Eosinophils % (Manual) Basophils % (Manual) Nucleated RBC % Seg Neutrophils # Seg Neutrophils # Man Lymphocytes # (Manual) Monocytes # (Manual) Eosinophils # (Manual) Basophils # (Manual) PT INR Fibrinogen dRVVT Confirm Interp Factor V Activity POC ABG pH POC ABG pCO2 POC ABG pO2 ABG pO2 ABG HCO3 ABG Base Excess ABG Hemoglobin Oxyhemoglobin Sodium Potassium Chloride Carbon Dioxide BUN Creatinine Glucose POC Glucose 119 H 111 H Lactic Acid Calcium Ionized Calcium Phosphorus Magnesium Direct Bilirubin AST ALT Alkaline Phosphatase Lactate Dehydrogenase Troponin T C-Reactive Protein Total Protein Albumin Prealbumin Triglycerides Cholesterol LDL Cholesterol Direct HDL Cholesterol 25-OH Vitamin D Total PTH Intact 6.76 L Urine pH Urine WBC (Auto) Urine Creatinine Urine Total Protein Fluid Total Protein Vancomycin Trough Rheumatoid Factor Complement C4 Miscellaneous Test Crossmatch 01/31/17 02/01/17 02/01/17 23:19 05:42 09:24 WBC RBC Hgb Hct MCV MCH MCHC RDW Plt Count Lymph % (Auto) [place] % (Auto) Lymph # [place] # Baso # Seg Neutrophils % Seg Neuts % (Manual) Lymphocytes % (Manual) Monocytes % (Manual) Eosinophils % (Manual) Basophils % (Manual) Nucleated RBC % Seg Neutrophils # Seg Neutrophils # Man Lymphocytes # (Manual) Monocytes # (Manual) Eosinophils # (Manual) Basophils # (Manual) PT INR Fibrinogen dRVVT Confirm Interp Factor V Activity POC ABG pH POC ABG pCO2 POC ABG pO2 ABG pO2 ABG HCO3 ABG Base Excess ABG Hemoglobin Oxyhemoglobin Sodium Potassium Chloride Carbon Dioxide BUN Creatinine Glucose POC Glucose 118 H 122 H Lactic Acid Calcium Ionized Calcium Phosphorus Magnesium 2.60 H Direct Bilirubin AST ALT Alkaline Phosphatase Lactate Dehydrogenase Troponin T C-Reactive Protein Total Protein Albumin Prealbumin Triglycerides Cholesterol LDL Cholesterol Direct HDL Cholesterol 25-OH Vitamin D Total PTH Intact Urine pH Urine WBC (Auto) Urine Creatinine Urine Total Protein Fluid Total Protein Vancomycin Trough Rheumatoid Factor Complement C4 Miscellaneous Test Crossmatch 02/01/17 02/01/17 02/02/17 09:24 12:15 07:40 WBC RBC Hgb Hct MCV MCH MCHC RDW Plt Count Lymph % (Auto) [place] % (Auto) Lymph # [place] # Baso # Seg Neutrophils % Seg Neuts % (Manual) Lymphocytes % (Manual) Monocytes % (Manual) Eosinophils % (Manual) Basophils % (Manual) Nucleated RBC % Seg Neutrophils # Seg Neutrophils # Man Lymphocytes # (Manual) Monocytes # (Manual) Eosinophils # (Manual) Basophils # (Manual) PT INR Fibrinogen dRVVT Confirm Interp Factor V Activity POC ABG pH POC ABG pCO2 POC ABG pO2 ABG pO2 ABG HCO3 ABG Base Excess ABG Hemoglobin Oxyhemoglobin Sodium Potassium Chloride Carbon Dioxide BUN 102 H 72 H Creatinine 1.9 H 1.5 H Glucose 120 H POC Glucose 156 H Lactic Acid Calcium Ionized Calcium Phosphorus Magnesium Direct Bilirubin AST ALT Alkaline Phosphatase Lactate Dehydrogenase Troponin T C-Reactive Protein Total Protein Albumin Prealbumin Triglycerides Cholesterol LDL Cholesterol Direct HDL Cholesterol 25-OH Vitamin D Total PTH Intact Urine pH Urine WBC (Auto) Urine Creatinine Urine Total Protein Fluid Total Protein Vancomycin Trough Rheumatoid Factor Complement C4 Miscellaneous Test Crossmatch 02/02/17 02/02/17 02/03/17 10:16 12:11 00:08 WBC 12.0 H RBC 3.08 L Hgb 8.3 L Hct 25.6 L MCV MCH 27 L MCHC RDW 18.2 H Plt Count Lymph % (Auto) [place] % (Auto) Lymph # [place] # Baso # Seg Neutrophils % 78.4 H Seg Neuts % (Manual) Lymphocytes % (Manual) Monocytes % (Manual) Eosinophils % (Manual) Basophils % (Manual) Nucleated RBC % Seg Neutrophils # 9.4 H Seg Neutrophils # Man Lymphocytes # (Manual) Monocytes # (Manual) Eosinophils # (Manual) Basophils # (Manual) PT INR Fibrinogen dRVVT Confirm Interp Factor V Activity POC ABG pH POC ABG pCO2 POC ABG pO2 ABG pO2 ABG HCO3 ABG Base Excess ABG Hemoglobin Oxyhemoglobin Sodium Potassium Chloride Carbon Dioxide BUN Creatinine Glucose POC Glucose 110 H 120 H Lactic Acid Calcium Ionized Calcium Phosphorus Magnesium Direct Bilirubin AST ALT Alkaline Phosphatase Lactate Dehydrogenase Troponin T C-Reactive Protein Total Protein Albumin Prealbumin Triglycerides Cholesterol LDL Cholesterol Direct HDL Cholesterol 25-OH Vitamin D Total PTH Intact Urine pH Urine WBC (Auto) Urine Creatinine Urine Total Protein Fluid Total Protein Vancomycin Trough Rheumatoid Factor Complement C4 Miscellaneous Test Crossmatch 02/03/17 02/03/17 02/03/17 05:41 07:38 11:31 WBC RBC Hgb Hct MCV MCH MCHC RDW Plt Count Lymph % (Auto) [place] % (Auto) Lymph # [place] # Baso # Seg Neutrophils % Seg Neuts % (Manual) Lymphocytes % (Manual) Monocytes % (Manual) Eosinophils % (Manual) Basophils % (Manual) Nucleated RBC % Seg Neutrophils # Seg Neutrophils # Man Lymphocytes # (Manual) Monocytes # (Manual) Eosinophils # (Manual) Basophils # (Manual) PT INR Fibrinogen dRVVT Confirm Interp Factor V Activity POC ABG pH POC ABG pCO2 POC ABG pO2 ABG pO2 ABG HCO3 ABG Base Excess ABG Hemoglobin Oxyhemoglobin Sodium 134 L Potassium Chloride Carbon Dioxide 21 L BUN 91 H Creatinine 1.9 H Glucose 110 H POC Glucose 119 H 119 H Lactic Acid Calcium 10.3 H Ionized Calcium Phosphorus Magnesium Direct Bilirubin AST ALT Alkaline Phosphatase Lactate Dehydrogenase Troponin T C-Reactive Protein Total Protein Albumin Prealbumin Triglycerides Cholesterol LDL Cholesterol Direct HDL Cholesterol 25-OH Vitamin D Total PTH Intact Urine pH Urine WBC (Auto) Urine Creatinine Urine Total Protein Fluid Total Protein Vancomycin Trough Rheumatoid Factor Complement C4 Miscellaneous Test Crossmatch 02/03/17 02/04/17 02/04/17 17:13 04:00 05:18 WBC RBC Hgb Hct MCV MCH MCHC RDW Plt Count Lymph % (Auto) [place] % (Auto) Lymph # [place] # Baso # Seg Neutrophils % Seg Neuts % (Manual) Lymphocytes % (Manual) Monocytes % (Manual) Eosinophils % (Manual) Basophils % (Manual) Nucleated RBC % Seg Neutrophils # Seg Neutrophils # Man Lymphocytes # (Manual) Monocytes # (Manual) Eosinophils # (Manual) Basophils # (Manual) PT INR Fibrinogen dRVVT Confirm Interp Factor V Activity POC ABG pH POC ABG pCO2 POC ABG pO2 ABG pO2 ABG HCO3 ABG Base Excess ABG Hemoglobin Oxyhemoglobin Sodium 136 L Potassium Chloride Carbon Dioxide BUN 58 H Creatinine 1.3 H Glucose 103 H POC Glucose 133 H 132 H Lactic Acid Calcium Ionized Calcium Phosphorus 2.00 L D Magnesium 1.60 L Direct Bilirubin AST ALT Alkaline Phosphatase Lactate Dehydrogenase Troponin T C-Reactive Protein Total Protein Albumin Prealbumin Triglycerides Cholesterol LDL Cholesterol Direct HDL Cholesterol 25-OH Vitamin D Total PTH Intact Urine pH Urine WBC (Auto) Urine Creatinine Urine Total Protein Fluid Total Protein Vancomycin Trough Rheumatoid Factor Complement C4 Miscellaneous Test Crossmatch 02/05/17 02/05/17 02/05/17 00:01 04:00 06:42 WBC RBC Hgb Hct MCV MCH MCHC RDW Plt Count Lymph % (Auto) [place] % (Auto) Lymph # [place] # Baso # Seg Neutrophils % Seg Neuts % (Manual) Lymphocytes % (Manual) Monocytes % (Manual) Eosinophils % (Manual) Basophils % (Manual) Nucleated RBC % Seg Neutrophils # Seg Neutrophils # Man Lymphocytes # (Manual) Monocytes # (Manual) Eosinophils # (Manual) Basophils # (Manual) PT INR Fibrinogen dRVVT Confirm Interp Factor V Activity POC ABG pH POC ABG pCO2 POC ABG pO2 ABG pO2 ABG HCO3 ABG Base Excess ABG Hemoglobin Oxyhemoglobin Sodium Potassium Chloride Carbon Dioxide BUN 83 H Creatinine 1.8 H Glucose POC Glucose 119 H 110 H Lactic Acid Calcium 10.7 H Ionized Calcium Phosphorus Magnesium Direct Bilirubin AST ALT Alkaline Phosphatase Lactate Dehydrogenase Troponin T C-Reactive Protein Total Protein Albumin Prealbumin Triglycerides Cholesterol LDL Cholesterol Direct HDL Cholesterol 25-OH Vitamin D Total PTH Intact Urine pH Urine WBC (Auto) Urine Creatinine Urine Total Protein Fluid Total Protein Vancomycin Trough Rheumatoid Factor Complement C4 Miscellaneous Test Crossmatch 02/05/17 02/05/17 02/05/17 09:59 11:47 23:44 WBC RBC 2.69 L Hgb 7.2 L Hct 22.5 L MCV MCH 27 L MCHC RDW 18.6 H Plt Count Lymph % (Auto) [place] % (Auto) 9.2 H Lymph # [place] # 0.9 H Baso # Seg Neutrophils % Seg Neuts % (Manual) Lymphocytes % (Manual) Monocytes % (Manual) Eosinophils % (Manual) Basophils % (Manual) Nucleated RBC % Seg Neutrophils # Seg Neutrophils # Man Lymphocytes # (Manual) Monocytes # (Manual) Eosinophils # (Manual) Basophils # (Manual) PT INR Fibrinogen dRVVT Confirm Interp Factor V Activity POC ABG pH POC ABG pCO2 POC ABG pO2 ABG pO2 ABG HCO3 ABG Base Excess ABG Hemoglobin Oxyhemoglobin Sodium Potassium Chloride Carbon Dioxide BUN Creatinine Glucose POC Glucose 130 H 123 H Lactic Acid Calcium Ionized Calcium Phosphorus Magnesium Direct Bilirubin AST ALT Alkaline Phosphatase Lactate Dehydrogenase Troponin T C-Reactive Protein Total Protein Albumin Prealbumin Triglycerides Cholesterol LDL Cholesterol Direct HDL Cholesterol 25-OH Vitamin D Total PTH Intact Urine pH Urine WBC (Auto) Urine Creatinine Urine Total Protein Fluid Total Protein Vancomycin Trough Rheumatoid Factor Complement C4 Miscellaneous Test Crossmatch 02/06/17 02/06/17 02/06/17 04:45 05:58 12:01 WBC RBC Hgb Hct MCV MCH MCHC RDW Plt Count Lymph % (Auto) [place] % (Auto) Lymph # [place] # Baso # Seg Neutrophils % Seg Neuts % (Manual) Lymphocytes % (Manual) Monocytes % (Manual) Eosinophils % (Manual) Basophils % (Manual) Nucleated RBC % Seg Neutrophils # Seg Neutrophils # Man Lymphocytes # (Manual) Monocytes # (Manual) Eosinophils # (Manual) Basophils # (Manual) PT INR Fibrinogen dRVVT Confirm Interp Factor V Activity POC ABG pH POC ABG pCO2 POC ABG pO2 ABG pO2 ABG HCO3 ABG Base Excess ABG Hemoglobin Oxyhemoglobin Sodium Potassium Chloride Carbon Dioxide BUN 101 H Creatinine 2.0 H Glucose 102 H POC Glucose 115 H 132 H Lactic Acid Calcium 10.6 H Ionized Calcium Phosphorus Magnesium Direct Bilirubin AST ALT Alkaline Phosphatase 199 H Lactate Dehydrogenase Troponin T C-Reactive Protein Total Protein Albumin 1.4 L Prealbumin Triglycerides Cholesterol LDL Cholesterol Direct HDL Cholesterol 25-OH Vitamin D Total PTH Intact Urine pH Urine WBC (Auto) Urine Creatinine Urine Total Protein Fluid Total Protein Vancomycin Trough Rheumatoid Factor Complement C4 Miscellaneous Test Crossmatch 02/06/17 02/06/17 02/07/17 17:41 23:32 05:04 WBC RBC Hgb Hct MCV MCH MCHC RDW Plt Count Lymph % (Auto) [place] % (Auto) Lymph # [place] # Baso # Seg Neutrophils % Seg Neuts % (Manual) Lymphocytes % (Manual) Monocytes % (Manual) Eosinophils % (Manual) Basophils % (Manual) Nucleated RBC % Seg Neutrophils # Seg Neutrophils # Man Lymphocytes # (Manual) Monocytes # (Manual) Eosinophils # (Manual) Basophils # (Manual) PT INR Fibrinogen dRVVT Confirm Interp Factor V Activity POC ABG pH POC ABG pCO2 POC ABG pO2 ABG pO2 ABG HCO3 ABG Base Excess ABG Hemoglobin Oxyhemoglobin Sodium Potassium Chloride Carbon Dioxide BUN Creatinine Glucose POC Glucose 134 H 128 H 119 H Lactic Acid Calcium Ionized Calcium Phosphorus Magnesium Direct Bilirubin AST ALT Alkaline Phosphatase Lactate Dehydrogenase Troponin T C-Reactive Protein Total Protein Albumin Prealbumin Triglycerides Cholesterol LDL Cholesterol Direct HDL Cholesterol 25-OH Vitamin D Total PTH Intact Urine pH Urine WBC (Auto) Urine Creatinine Urine Total Protein Fluid Total Protein Vancomycin Trough Rheumatoid Factor Complement C4 Miscellaneous Test Crossmatch 02/07/17 02/07/17 02/07/17 06:30 11:20 17:13 WBC RBC Hgb Hct MCV MCH MCHC RDW Plt Count Lymph % (Auto) [place] % (Auto) Lymph # [place] # Baso # Seg Neutrophils % Seg Neuts % (Manual) Lymphocytes % (Manual) Monocytes % (Manual) Eosinophils % (Manual) Basophils % (Manual) Nucleated RBC % Seg Neutrophils # Seg Neutrophils # Man Lymphocytes # (Manual) Monocytes # (Manual) Eosinophils # (Manual) Basophils # (Manual) PT INR Fibrinogen dRVVT Confirm Interp Factor V Activity POC ABG pH POC ABG pCO2 POC ABG pO2 ABG pO2 ABG HCO3 ABG Base Excess ABG Hemoglobin Oxyhemoglobin Sodium Potassium 3.4 L Chloride Carbon Dioxide BUN 69 H Creatinine 1.5 H Glucose 105 H POC Glucose 117 H 110 H Lactic Acid Calcium Ionized Calcium Phosphorus Magnesium 1.50 L Direct Bilirubin AST ALT Alkaline Phosphatase Lactate Dehydrogenase Troponin T C-Reactive Protein Total Protein Albumin Prealbumin Triglycerides Cholesterol LDL Cholesterol Direct HDL Cholesterol 25-OH Vitamin D Total PTH Intact Urine pH Urine WBC (Auto) Urine Creatinine Urine Total Protein Fluid Total Protein Vancomycin Trough Rheumatoid Factor Complement C4 Miscellaneous Test Crossmatch 02/07/17 02/08/17 02/08/17 20:47 04:00 11:43 WBC RBC Hgb Hct MCV MCH MCHC RDW Plt Count Lymph % (Auto) [place] % (Auto) Lymph # [place] # Baso # Seg Neutrophils % Seg Neuts % (Manual) Lymphocytes % (Manual) Monocytes % (Manual) Eosinophils % (Manual) Basophils % (Manual) Nucleated RBC % Seg Neutrophils # Seg Neutrophils # Man Lymphocytes # (Manual) Monocytes # (Manual) Eosinophils # (Manual) Basophils # (Manual) PT INR Fibrinogen dRVVT Confirm Interp Factor V Activity POC ABG pH POC ABG pCO2 POC ABG pO2 ABG pO2 ABG HCO3 ABG Base Excess ABG Hemoglobin Oxyhemoglobin Sodium Potassium Chloride Carbon Dioxide BUN 86 H Creatinine 1.7 H Glucose POC Glucose 115 H 122 H Lactic Acid Calcium Ionized Calcium Phosphorus Magnesium 1.60 L Direct Bilirubin AST ALT Alkaline Phosphatase Lactate Dehydrogenase Troponin T C-Reactive Protein Total Protein Albumin Prealbumin Triglycerides Cholesterol LDL Cholesterol Direct HDL Cholesterol 25-OH Vitamin D Total PTH Intact Urine pH Urine WBC (Auto) Urine Creatinine Urine Total Protein Fluid Total Protein Vancomycin Trough Rheumatoid Factor Complement C4 Miscellaneous Test Crossmatch 02/08/17 02/09/17 02/09/17 17:36 05:44 11:30 WBC RBC Hgb Hct MCV MCH MCHC RDW Plt Count Lymph % (Auto) [place] % (Auto) Lymph # [place] # Baso # Seg Neutrophils % Seg Neuts % (Manual) Lymphocytes % (Manual) Monocytes % (Manual) Eosinophils % (Manual) Basophils % (Manual) Nucleated RBC % Seg Neutrophils # Seg Neutrophils # Man Lymphocytes # (Manual) Monocytes # (Manual) Eosinophils # (Manual) Basophils # (Manual) PT INR Fibrinogen dRVVT Confirm Interp Factor V Activity POC ABG pH POC ABG pCO2 POC ABG pO2 ABG pO2 ABG HCO3 ABG Base Excess ABG Hemoglobin Oxyhemoglobin Sodium Potassium Chloride Carbon Dioxide BUN Creatinine Glucose POC Glucose 125 H 117 H 120 H Lactic Acid Calcium Ionized Calcium Phosphorus Magnesium Direct Bilirubin AST ALT Alkaline Phosphatase Lactate Dehydrogenase Troponin T C-Reactive Protein Total Protein Albumin Prealbumin Triglycerides Cholesterol LDL Cholesterol Direct HDL Cholesterol 25-OH Vitamin D Total PTH Intact Urine pH Urine WBC (Auto) Urine Creatinine Urine Total Protein Fluid Total Protein Vancomycin Trough Rheumatoid Factor Complement C4 Miscellaneous Test Crossmatch 02/09/17 02/10/17 02/10/17 23:45 05:45 05:50 WBC RBC Hgb Hct MCV MCH MCHC RDW Plt Count Lymph % (Auto) [place] % (Auto) Lymph # [place] # Baso # Seg Neutrophils % Seg Neuts % (Manual) Lymphocytes % (Manual) Monocytes % (Manual) Eosinophils % (Manual) Basophils % (Manual) Nucleated RBC % Seg Neutrophils # Seg Neutrophils # Man Lymphocytes # (Manual) Monocytes # (Manual) Eosinophils # (Manual) Basophils # (Manual) PT INR Fibrinogen dRVVT Confirm Interp Factor V Activity POC ABG pH POC ABG pCO2 POC ABG pO2 ABG pO2 ABG HCO3 ABG Base Excess ABG Hemoglobin Oxyhemoglobin Sodium Potassium Chloride Carbon Dioxide BUN 85 H Creatinine 1.8 H Glucose 109 H POC Glucose 114 H 189 H Lactic Acid Calcium Ionized Calcium Phosphorus Magnesium 2.50 H Direct Bilirubin AST ALT Alkaline Phosphatase Lactate Dehydrogenase Troponin T C-Reactive Protein Total Protein Albumin Prealbumin Triglycerides Cholesterol LDL Cholesterol Direct HDL Cholesterol 25-OH Vitamin D Total PTH Intact Urine pH Urine WBC (Auto) Urine Creatinine Urine Total Protein Fluid Total Protein Vancomycin Trough Rheumatoid Factor Complement C4 Miscellaneous Test Crossmatch 02/10/17 02/10/17 02/10/17 05:51 11:55 17:42 WBC RBC Hgb Hct MCV MCH MCHC RDW Plt Count Lymph % (Auto) [place] % (Auto) Lymph # [place] # Baso # Seg Neutrophils % Seg Neuts % (Manual) Lymphocytes % (Manual) Monocytes % (Manual) Eosinophils % (Manual) Basophils % (Manual) Nucleated RBC % Seg Neutrophils # Seg Neutrophils # Man Lymphocytes # (Manual) Monocytes # (Manual) Eosinophils # (Manual) Basophils # (Manual) PT INR Fibrinogen dRVVT Confirm Interp Factor V Activity POC ABG pH POC ABG pCO2 POC ABG pO2 ABG pO2 ABG HCO3 ABG Base Excess ABG Hemoglobin Oxyhemoglobin Sodium Potassium Chloride Carbon Dioxide BUN Creatinine Glucose POC Glucose 106 H 146 H 132 H Lactic Acid Calcium Ionized Calcium Phosphorus Magnesium Direct Bilirubin AST ALT Alkaline Phosphatase Lactate Dehydrogenase Troponin T C-Reactive Protein Total Protein Albumin Prealbumin Triglycerides Cholesterol LDL Cholesterol Direct HDL Cholesterol 25-OH Vitamin D Total PTH Intact Urine pH Urine WBC (Auto) Urine Creatinine Urine Total Protein Fluid Total Protein Vancomycin Trough Rheumatoid Factor Complement C4 Miscellaneous Test Crossmatch 02/10/17 02/11/17 02/11/17 23:43 04:08 05:34 WBC RBC Hgb Hct MCV MCH MCHC RDW Plt Count Lymph % (Auto) [place] % (Auto) Lymph # [place] # Baso # Seg Neutrophils % Seg Neuts % (Manual) Lymphocytes % (Manual) Monocytes % (Manual) Eosinophils % (Manual) Basophils % (Manual) Nucleated RBC % Seg Neutrophils # Seg Neutrophils # Man Lymphocytes # (Manual) Monocytes # (Manual) Eosinophils # (Manual) Basophils # (Manual) PT INR Fibrinogen dRVVT Confirm Interp Factor V Activity POC ABG pH POC ABG pCO2 POC ABG pO2 ABG pO2 ABG HCO3 ABG Base Excess ABG Hemoglobin Oxyhemoglobin Sodium 136 L Potassium Chloride Carbon Dioxide BUN 65 H Creatinine 1.7 H Glucose 105 H POC Glucose 130 H 113 H Lactic Acid Calcium Ionized Calcium Phosphorus Magnesium Direct Bilirubin AST ALT Alkaline Phosphatase Lactate Dehydrogenase Troponin T C-Reactive Protein Total Protein Albumin Prealbumin Triglycerides Cholesterol LDL Cholesterol Direct HDL Cholesterol 25-OH Vitamin D Total PTH Intact Urine pH Urine WBC (Auto) Urine Creatinine Urine Total Protein Fluid Total Protein Vancomycin Trough Rheumatoid Factor Complement C4 Miscellaneous Test Crossmatch 02/11/17 02/11/17 02/12/17 11:56 23:18 06:19 WBC RBC Hgb Hct MCV MCH MCHC RDW Plt Count Lymph % (Auto) [place] % (Auto) Lymph # [place] # Baso # Seg Neutrophils % Seg Neuts % (Manual) Lymphocytes % (Manual) Monocytes % (Manual) Eosinophils % (Manual) Basophils % (Manual) Nucleated RBC % Seg Neutrophils # Seg Neutrophils # Man Lymphocytes # (Manual) Monocytes # (Manual) Eosinophils # (Manual) Basophils # (Manual) PT INR Fibrinogen dRVVT Confirm Interp Factor V Activity POC ABG pH POC ABG pCO2 POC ABG pO2 ABG pO2 ABG HCO3 ABG Base Excess ABG Hemoglobin Oxyhemoglobin Sodium 136 L Potassium Chloride 97.1 L Carbon Dioxide BUN 93 H Creatinine 2.4 H Glucose POC Glucose 126 H 119 H Lactic Acid Calcium 11.0 H Ionized Calcium Phosphorus Magnesium Direct Bilirubin AST ALT Alkaline Phosphatase Lactate Dehydrogenase Troponin T C-Reactive Protein Total Protein Albumin Prealbumin Triglycerides Cholesterol LDL Cholesterol Direct HDL Cholesterol 25-OH Vitamin D Total PTH Intact Urine pH Urine WBC (Auto) Urine Creatinine Urine Total Protein Fluid Total Protein Vancomycin Trough Rheumatoid Factor Complement C4 Miscellaneous Test Crossmatch 02/12/17 02/12/17 02/12/17 08:00 10:25 11:42 WBC 15.4 H RBC 2.63 L Hgb 6.9 L Hct 22.6 L MCV MCH 26 L MCHC RDW 20.5 H Plt Count Lymph % (Auto) [place] % (Auto) Lymph # [place] # Baso # Seg Neutrophils % Seg Neuts % (Manual) Lymphocytes % (Manual) Monocytes % (Manual) Eosinophils % (Manual) Basophils % (Manual) Nucleated RBC % Seg Neutrophils # Seg Neutrophils # Man Lymphocytes # (Manual) Monocytes # (Manual) Eosinophils # (Manual) Basophils # (Manual) PT INR Fibrinogen dRVVT Confirm Interp Factor V Activity POC ABG pH POC ABG pCO2 POC ABG pO2 ABG pO2 ABG HCO3 ABG Base Excess ABG Hemoglobin Oxyhemoglobin Sodium Potassium Chloride Carbon Dioxide BUN Creatinine Glucose POC Glucose 142 H Lactic Acid Calcium Ionized Calcium Phosphorus Magnesium Direct Bilirubin AST ALT Alkaline Phosphatase Lactate Dehydrogenase Troponin T C-Reactive Protein Total Protein Albumin Prealbumin Triglycerides Cholesterol LDL Cholesterol Direct HDL Cholesterol 25-OH Vitamin D Total PTH Intact Urine pH Urine WBC (Auto) Urine Creatinine Urine Total Protein Fluid Total Protein Vancomycin Trough Rheumatoid Factor Complement C4 Miscellaneous Test Crossmatch See Detail 02/12/17 02/13/17 02/13/17 18:04 00:04 05:00 WBC RBC Hgb Hct MCV MCH MCHC RDW Plt Count Lymph % (Auto) [place] % (Auto) Lymph # [place] # Baso # Seg Neutrophils % Seg Neuts % (Manual) Lymphocytes % (Manual) Monocytes % (Manual) Eosinophils % (Manual) Basophils % (Manual) Nucleated RBC % Seg Neutrophils # Seg Neutrophils # Man Lymphocytes # (Manual) Monocytes # (Manual) Eosinophils # (Manual) Basophils # (Manual) PT INR Fibrinogen dRVVT Confirm Interp Factor V Activity POC ABG pH POC ABG pCO2 POC ABG pO2 ABG pO2 ABG HCO3 ABG Base Excess ABG Hemoglobin Oxyhemoglobin Sodium 134 L Potassium Chloride 96.1 L Carbon Dioxide 20 L BUN 125 H Creatinine 3.0 H Glucose 111 H POC Glucose 135 H 109 H Lactic Acid Calcium 11.3 H Ionized Calcium Phosphorus Magnesium Direct Bilirubin AST ALT Alkaline Phosphatase Lactate Dehydrogenase Troponin T C-Reactive Protein Total Protein Albumin Prealbumin Triglycerides Cholesterol LDL Cholesterol Direct HDL Cholesterol 25-OH Vitamin D Total PTH Intact Urine pH Urine WBC (Auto) Urine Creatinine Urine Total Protein Fluid Total Protein Vancomycin Trough Rheumatoid Factor Complement C4 Miscellaneous Test Crossmatch 02/13/17 02/13/17 02/13/17 05:00 05:28 12:03 WBC 11.9 H RBC 2.92 L Hgb 7.8 L Hct 25.2 L MCV MCH 27 L MCHC RDW 19.3 H Plt Count Lymph % (Auto) [place] % (Auto) Lymph # [place] # Baso # Seg Neutrophils % Seg Neuts % (Manual) Lymphocytes % (Manual) Monocytes % (Manual) Eosinophils % (Manual) Basophils % (Manual) Nucleated RBC % Seg Neutrophils # Seg Neutrophils # Man Lymphocytes # (Manual) Monocytes # (Manual) Eosinophils # (Manual) Basophils # (Manual) PT INR Fibrinogen dRVVT Confirm Interp Factor V Activity POC ABG pH POC ABG pCO2 POC ABG pO2 ABG pO2 ABG HCO3 ABG Base Excess ABG Hemoglobin Oxyhemoglobin Sodium Potassium Chloride Carbon Dioxide BUN Creatinine Glucose POC Glucose 124 H 160 H Lactic Acid Calcium Ionized Calcium Phosphorus Magnesium Direct Bilirubin AST ALT Alkaline Phosphatase Lactate Dehydrogenase Troponin T C-Reactive Protein Total Protein Albumin Prealbumin Triglycerides Cholesterol LDL Cholesterol Direct HDL Cholesterol 25-OH Vitamin D Total PTH Intact Urine pH Urine WBC (Auto) Urine Creatinine Urine Total Protein Fluid Total Protein Vancomycin Trough Rheumatoid Factor Complement C4 Miscellaneous Test Crossmatch 02/13/17 02/14/17 02/14/17 18:09 06:16 08:08 WBC 15.2 H RBC 2.97 L Hgb 8.1 L Hct 26.3 L MCV MCH MCHC RDW 19.3 H Plt Count Lymph % (Auto) [place] % (Auto) Lymph # [place] # Baso # Seg Neutrophils % Seg Neuts % (Manual) Lymphocytes % (Manual) Monocytes % (Manual) Eosinophils % (Manual) Basophils % (Manual) Nucleated RBC % Seg Neutrophils # Seg Neutrophils # Man Lymphocytes # (Manual) Monocytes # (Manual) Eosinophils # (Manual) Basophils # (Manual) PT INR Fibrinogen dRVVT Confirm Interp Factor V Activity POC ABG pH POC ABG pCO2 POC ABG pO2 ABG pO2 ABG HCO3 ABG Base Excess ABG Hemoglobin Oxyhemoglobin Sodium Potassium Chloride Carbon Dioxide BUN Creatinine Glucose POC Glucose 110 H 112 H Lactic Acid Calcium Ionized Calcium Phosphorus Magnesium Direct Bilirubin AST ALT Alkaline Phosphatase Lactate Dehydrogenase Troponin T C-Reactive Protein Total Protein Albumin Prealbumin Triglycerides Cholesterol LDL Cholesterol Direct HDL Cholesterol 25-OH Vitamin D Total PTH Intact Urine pH Urine WBC (Auto) Urine Creatinine Urine Total Protein Fluid Total Protein Vancomycin Trough Rheumatoid Factor Complement C4 Miscellaneous Test Crossmatch 02/14/17 02/14/17 02/15/17 08:08 17:41 04:15 WBC RBC Hgb Hct MCV MCH MCHC RDW Plt Count Lymph % (Auto) [place] % (Auto) Lymph # [place] # Baso # Seg Neutrophils % Seg Neuts % (Manual) Lymphocytes % (Manual) Monocytes % (Manual) Eosinophils % (Manual) Basophils % (Manual) Nucleated RBC % Seg Neutrophils # Seg Neutrophils # Man Lymphocytes # (Manual) Monocytes # (Manual) Eosinophils # (Manual) Basophils # (Manual) PT INR Fibrinogen dRVVT Confirm Interp Factor V Activity POC ABG pH POC ABG pCO2 POC ABG pO2 ABG pO2 ABG HCO3 ABG Base Excess ABG Hemoglobin Oxyhemoglobin Sodium Potassium Chloride Carbon Dioxide 18 L 21 L BUN 79 H 113 H Creatinine 2.1 H 2.8 H Glucose POC Glucose 118 H Lactic Acid Calcium 10.7 H Ionized Calcium Phosphorus 1.70 L D Magnesium 1.60 L Direct Bilirubin AST ALT Alkaline Phosphatase Lactate Dehydrogenase Troponin T C-Reactive Protein Total Protein Albumin Prealbumin Triglycerides Cholesterol LDL Cholesterol Direct HDL Cholesterol 25-OH Vitamin D Total PTH Intact Urine pH Urine WBC (Auto) Urine Creatinine Urine Total Protein Fluid Total Protein Vancomycin Trough Rheumatoid Factor Complement C4 Miscellaneous Test Crossmatch 02/15/17 02/15/17 02/15/17 06:06 11:31 17:52 WBC RBC Hgb Hct MCV MCH MCHC RDW Plt Count Lymph % (Auto) [place] % (Auto) Lymph # [place] # Baso # Seg Neutrophils % Seg Neuts % (Manual) Lymphocytes % (Manual) Monocytes % (Manual) Eosinophils % (Manual) Basophils % (Manual) Nucleated RBC % Seg Neutrophils # Seg Neutrophils # Man Lymphocytes # (Manual) Monocytes # (Manual) Eosinophils # (Manual) Basophils # (Manual) PT INR Fibrinogen dRVVT Confirm Interp Factor V Activity POC ABG pH POC ABG pCO2 POC ABG pO2 ABG pO2 ABG HCO3 ABG Base Excess ABG Hemoglobin Oxyhemoglobin Sodium Potassium Chloride Carbon Dioxide BUN Creatinine Glucose POC Glucose 115 H 129 H 201 H Lactic Acid Calcium Ionized Calcium Phosphorus Magnesium Direct Bilirubin AST ALT Alkaline Phosphatase Lactate Dehydrogenase Troponin T C-Reactive Protein Total Protein Albumin Prealbumin Triglycerides Cholesterol LDL Cholesterol Direct HDL Cholesterol 25-OH Vitamin D Total PTH Intact Urine pH Urine WBC (Auto) Urine Creatinine Urine Total Protein Fluid Total Protein Vancomycin Trough Rheumatoid Factor Complement C4 Miscellaneous Test Crossmatch 02/15/17 02/15/17 02/15/17 19:08 19:08 19:08 WBC RBC Hgb Hct MCV MCH MCHC RDW Plt Count Lymph % (Auto) [place] % (Auto) Lymph # [place] # Baso # Seg Neutrophils % Seg Neuts % (Manual) Lymphocytes % (Manual) Monocytes % (Manual) Eosinophils % (Manual) Basophils % (Manual) Nucleated RBC % Seg Neutrophils # Seg Neutrophils # Man Lymphocytes # (Manual) Monocytes # (Manual) Eosinophils # (Manual) Basophils # (Manual) PT INR Fibrinogen dRVVT Confirm Interp Factor V Activity POC ABG pH POC ABG pCO2 POC ABG pO2 ABG pO2 ABG HCO3 ABG Base Excess ABG Hemoglobin Oxyhemoglobin Sodium Potassium Chloride Carbon Dioxide BUN Creatinine Glucose POC Glucose Lactic Acid Calcium Ionized Calcium 6.0 H Phosphorus Magnesium Direct Bilirubin AST ALT Alkaline Phosphatase Lactate Dehydrogenase Troponin T C-Reactive Protein Total Protein Albumin Prealbumin Triglycerides Cholesterol LDL Cholesterol Direct HDL Cholesterol 25-OH Vitamin D Total 13 L PTH Intact 10.88 L Urine pH Urine WBC (Auto) Urine Creatinine Urine Total Protein Fluid Total Protein Vancomycin Trough Rheumatoid Factor Complement C4 Miscellaneous Test Crossmatch 02/16/17 02/16/17 02/16/17 05:12 06:00 12:39 WBC RBC Hgb Hct MCV MCH MCHC RDW Plt Count Lymph % (Auto) [place] % (Auto) Lymph # [place] # Baso # Seg Neutrophils % Seg Neuts % (Manual) Lymphocytes % (Manual) Monocytes % (Manual) Eosinophils % (Manual) Basophils % (Manual) Nucleated RBC % Seg Neutrophils # Seg Neutrophils # Man Lymphocytes # (Manual) Monocytes # (Manual) Eosinophils # (Manual) Basophils # (Manual) PT INR Fibrinogen dRVVT Confirm Interp Factor V Activity POC ABG pH POC ABG pCO2 POC ABG pO2 ABG pO2 ABG HCO3 ABG Base Excess ABG Hemoglobin Oxyhemoglobin Sodium Potassium Chloride Carbon Dioxide BUN 74 H Creatinine 1.7 H Glucose 102 H POC Glucose 125 H 109 H Lactic Acid Calcium Ionized Calcium Phosphorus 2.10 L D Magnesium Direct Bilirubin AST ALT Alkaline Phosphatase Lactate Dehydrogenase Troponin T C-Reactive Protein Total Protein Albumin Prealbumin Triglycerides Cholesterol LDL Cholesterol Direct HDL Cholesterol 25-OH Vitamin D Total PTH Intact Urine pH Urine WBC (Auto) Urine Creatinine Urine Total Protein Fluid Total Protein Vancomycin Trough Rheumatoid Factor Complement C4 Miscellaneous Test Crossmatch 02/16/17 02/16/17 02/17/17 17:31 23:57 05:30 WBC RBC Hgb Hct MCV MCH MCHC RDW Plt Count Lymph % (Auto) [place] % (Auto) Lymph # [place] # Baso # Seg Neutrophils % Seg Neuts % (Manual) Lymphocytes % (Manual) Monocytes % (Manual) Eosinophils % (Manual) Basophils % (Manual) Nucleated RBC % Seg Neutrophils # Seg Neutrophils # Man Lymphocytes # (Manual) Monocytes # (Manual) Eosinophils # (Manual) Basophils # (Manual) PT INR Fibrinogen dRVVT Confirm Interp Factor V Activity POC ABG pH POC ABG pCO2 POC ABG pO2 ABG pO2 ABG HCO3 ABG Base Excess ABG Hemoglobin Oxyhemoglobin Sodium Potassium Chloride Carbon Dioxide BUN Creatinine Glucose POC Glucose 106 H 127 H 122 H Lactic Acid Calcium Ionized Calcium Phosphorus Magnesium Direct Bilirubin AST ALT Alkaline Phosphatase Lactate Dehydrogenase Troponin T C-Reactive Protein Total Protein Albumin Prealbumin Triglycerides Cholesterol LDL Cholesterol Direct HDL Cholesterol 25-OH Vitamin D Total PTH Intact Urine pH Urine WBC (Auto) Urine Creatinine Urine Total Protein Fluid Total Protein Vancomycin Trough Rheumatoid Factor Complement C4 Miscellaneous Test Crossmatch 02/17/17 02/17/17 02/17/17 06:00 12:17 17:57 WBC RBC Hgb Hct MCV MCH MCHC RDW Plt Count Lymph % (Auto) [place] % (Auto) Lymph # [place] # Baso # Seg Neutrophils % Seg Neuts % (Manual) Lymphocytes % (Manual) Monocytes % (Manual) Eosinophils % (Manual) Basophils % (Manual) Nucleated RBC % Seg Neutrophils # Seg Neutrophils # Man Lymphocytes # (Manual) Monocytes # (Manual) Eosinophils # (Manual) Basophils # (Manual) PT INR Fibrinogen dRVVT Confirm Interp Factor V Activity POC ABG pH POC ABG pCO2 POC ABG pO2 ABG pO2 ABG HCO3 ABG Base Excess ABG Hemoglobin Oxyhemoglobin Sodium Potassium Chloride Carbon Dioxide BUN 94 H Creatinine 2.3 H Glucose 106 H POC Glucose 173 H 140 H Lactic Acid Calcium Ionized Calcium Phosphorus Magnesium Direct Bilirubin AST ALT Alkaline Phosphatase Lactate Dehydrogenase Troponin T C-Reactive Protein Total Protein Albumin Prealbumin Triglycerides Cholesterol LDL Cholesterol Direct HDL Cholesterol 25-OH Vitamin D Total PTH Intact Urine pH Urine WBC (Auto) Urine Creatinine Urine Total Protein Fluid Total Protein Vancomycin Trough Rheumatoid Factor Complement C4 Miscellaneous Test Crossmatch 02/18/17 02/18/17 02/18/17 00:20 05:30 06:14 WBC RBC Hgb Hct MCV MCH MCHC RDW Plt Count Lymph % (Auto) [place] % (Auto) Lymph # [place] # Baso # Seg Neutrophils % Seg Neuts % (Manual) Lymphocytes % (Manual) Monocytes % (Manual) Eosinophils % (Manual) Basophils % (Manual) Nucleated RBC % Seg Neutrophils # Seg Neutrophils # Man Lymphocytes # (Manual) Monocytes # (Manual) Eosinophils # (Manual) Basophils # (Manual) PT INR Fibrinogen dRVVT Confirm Interp Factor V Activity POC ABG pH POC ABG pCO2 POC ABG pO2 ABG pO2 ABG HCO3 ABG Base Excess ABG Hemoglobin Oxyhemoglobin Sodium 136 L Potassium Chloride 97.5 L Carbon Dioxide BUN 73 H Creatinine 1.9 H Glucose POC Glucose 132 H 106 H Lactic Acid Calcium Ionized Calcium Phosphorus Magnesium Direct Bilirubin AST ALT Alkaline Phosphatase Lactate Dehydrogenase Troponin T C-Reactive Protein Total Protein Albumin Prealbumin Triglycerides Cholesterol LDL Cholesterol Direct HDL Cholesterol 25-OH Vitamin D Total PTH Intact Urine pH Urine WBC (Auto) Urine Creatinine Urine Total Protein Fluid Total Protein Vancomycin Trough Rheumatoid Factor Complement C4 Miscellaneous Test Crossmatch 02/18/17 02/18/17 02/18/17 09:51 11:32 17:59 WBC 13.1 H RBC 2.77 L Hgb 7.6 L Hct 23.9 L MCV MCH MCHC RDW 19.0 H Plt Count Lymph % (Auto) [place] % (Auto) 11.1 H Lymph # [place] # 1.5 H Baso # Seg Neutrophils % Seg Neuts % (Manual) Lymphocytes % (Manual) Monocytes % (Manual) Eosinophils % (Manual) Basophils % (Manual) Nucleated RBC % Seg Neutrophils # 9.1 H Seg Neutrophils # Man Lymphocytes # (Manual) Monocytes # (Manual) Eosinophils # (Manual) Basophils # (Manual) PT INR Fibrinogen dRVVT Confirm Interp Factor V Activity POC ABG pH POC ABG pCO2 POC ABG pO2 ABG pO2 ABG HCO3 ABG Base Excess ABG Hemoglobin Oxyhemoglobin Sodium Potassium Chloride Carbon Dioxide BUN Creatinine Glucose POC Glucose 123 H 119 H Lactic Acid Calcium Ionized Calcium Phosphorus Magnesium Direct Bilirubin AST ALT Alkaline Phosphatase Lactate Dehydrogenase Troponin T C-Reactive Protein Total Protein Albumin Prealbumin Triglycerides Cholesterol LDL Cholesterol Direct HDL Cholesterol 25-OH Vitamin D Total PTH Intact Urine pH Urine WBC (Auto) Urine Creatinine Urine Total Protein Fluid Total Protein Vancomycin Trough Rheumatoid Factor Complement C4 Miscellaneous Test Crossmatch 02/18/17 02/19/17 02/19/17 23:47 05:36 09:45 WBC RBC Hgb Hct MCV MCH 27 L MCHC RDW 19.2 H Plt Count Lymph % (Auto) [place] % (Auto) Lymph # [place] # Baso # Seg Neutrophils % Seg Neuts % (Manual) Lymphocytes % (Manual) Monocytes % (Manual) Eosinophils % (Manual) Basophils % (Manual) Nucleated RBC % Seg Neutrophils # Seg Neutrophils # Man Lymphocytes # (Manual) Monocytes # (Manual) Eosinophils # (Manual) Basophils # (Manual) PT INR Fibrinogen dRVVT Confirm Interp Factor V Activity POC ABG pH POC ABG pCO2 POC ABG pO2 ABG pO2 ABG HCO3 ABG Base Excess ABG Hemoglobin Oxyhemoglobin Sodium Potassium Chloride Carbon Dioxide BUN Creatinine Glucose POC Glucose 110 H 121 H Lactic Acid Calcium Ionized Calcium Phosphorus Magnesium Direct Bilirubin AST ALT Alkaline Phosphatase Lactate Dehydrogenase Troponin T C-Reactive Protein Total Protein Albumin Prealbumin Triglycerides Cholesterol LDL Cholesterol Direct HDL Cholesterol 25-OH Vitamin D Total PTH Intact Urine pH Urine WBC (Auto) Urine Creatinine Urine Total Protein Fluid Total Protein Vancomycin Trough Rheumatoid Factor Complement C4 Miscellaneous Test Crossmatch 02/19/17 02/20/17 02/20/17 09:45 00:10 06:15 WBC RBC Hgb Hct MCV MCH MCHC RDW Plt Count Lymph % (Auto) [place] % (Auto) Lymph # [place] # Baso # Seg Neutrophils % Seg Neuts % (Manual) Lymphocytes % (Manual) Monocytes % (Manual) Eosinophils % (Manual) Basophils % (Manual) Nucleated RBC % Seg Neutrophils # Seg Neutrophils # Man Lymphocytes # (Manual) Monocytes # (Manual) Eosinophils # (Manual) Basophils # (Manual) PT INR Fibrinogen dRVVT Confirm Interp Factor V Activity POC ABG pH POC ABG pCO2 POC ABG pO2 ABG pO2 ABG HCO3 ABG Base Excess ABG Hemoglobin Oxyhemoglobin Sodium 136 L Potassium 5.1 H Chloride 97.6 L Carbon Dioxide 20 L 18 L BUN 110 H 135 H Creatinine 2.6 H 3.2 H Glucose 106 H 110 H POC Glucose 117 H Lactic Acid Calcium Ionized Calcium Phosphorus 4.70 H D 5.60 H Magnesium Direct Bilirubin AST ALT Alkaline Phosphatase Lactate Dehydrogenase Troponin T C-Reactive Protein Total Protein Albumin Prealbumin Triglycerides Cholesterol LDL Cholesterol Direct HDL Cholesterol 25-OH Vitamin D Total PTH Intact Urine pH Urine WBC (Auto) Urine Creatinine Urine Total Protein Fluid Total Protein Vancomycin Trough Rheumatoid Factor Complement C4 Miscellaneous Test Crossmatch 02/20/17 02/20/17 02/21/17 11:30 17:51 00:14 WBC RBC Hgb Hct MCV MCH MCHC RDW Plt Count Lymph % (Auto) [place] % (Auto) Lymph # [place] # Baso # Seg Neutrophils % Seg Neuts % (Manual) Lymphocytes % (Manual) Monocytes % (Manual) Eosinophils % (Manual) Basophils % (Manual) Nucleated RBC % Seg Neutrophils # Seg Neutrophils # Man Lymphocytes # (Manual) Monocytes # (Manual) Eosinophils # (Manual) Basophils # (Manual) PT INR Fibrinogen dRVVT Confirm Interp Factor V Activity POC ABG pH POC ABG pCO2 POC ABG pO2 ABG pO2 ABG HCO3 ABG Base Excess ABG Hemoglobin Oxyhemoglobin Sodium Potassium Chloride Carbon Dioxide BUN Creatinine Glucose POC Glucose 173 H 133 H 125 H Lactic Acid Calcium Ionized Calcium Phosphorus Magnesium Direct Bilirubin AST ALT Alkaline Phosphatase Lactate Dehydrogenase Troponin T C-Reactive Protein Total Protein Albumin Prealbumin Triglycerides Cholesterol LDL Cholesterol Direct HDL Cholesterol 25-OH Vitamin D Total PTH Intact Urine pH Urine WBC (Auto) Urine Creatinine Urine Total Protein Fluid Total Protein Vancomycin Trough Rheumatoid Factor Complement C4 Miscellaneous Test Crossmatch 02/21/17 02/21/17 02/21/17 04:09 05:03 11:58 WBC RBC Hgb Hct MCV MCH MCHC RDW Plt Count Lymph % (Auto) [place] % (Auto) Lymph # [place] # Baso # Seg Neutrophils % Seg Neuts % (Manual) Lymphocytes % (Manual) Monocytes % (Manual) Eosinophils % (Manual) Basophils % (Manual) Nucleated RBC % Seg Neutrophils # Seg Neutrophils # Man Lymphocytes # (Manual) Monocytes # (Manual) Eosinophils # (Manual) Basophils # (Manual) PT INR Fibrinogen dRVVT Confirm Interp Factor V Activity POC ABG pH POC ABG pCO2 POC ABG pO2 ABG pO2 ABG HCO3 ABG Base Excess ABG Hemoglobin Oxyhemoglobin Sodium 135 L Potassium Chloride Carbon Dioxide 20 L BUN 76 H Creatinine 2.0 H Glucose 125 H POC Glucose 134 H 139 H Lactic Acid Calcium Ionized Calcium Phosphorus Magnesium Direct Bilirubin AST ALT Alkaline Phosphatase Lactate Dehydrogenase Troponin T C-Reactive Protein Total Protein Albumin Prealbumin Triglycerides Cholesterol LDL Cholesterol Direct HDL Cholesterol 25-OH Vitamin D Total PTH Intact Urine pH Urine WBC (Auto) Urine Creatinine Urine Total Protein Fluid Total Protein Vancomycin Trough Rheumatoid Factor Complement C4 Miscellaneous Test Crossmatch 02/21/17 02/21/17 02/22/17 17:16 23:41 04:10 WBC RBC Hgb Hct MCV MCH MCHC RDW Plt Count Lymph % (Auto) [place] % (Auto) Lymph # [place] # Baso # Seg Neutrophils % Seg Neuts % (Manual) Lymphocytes % (Manual) Monocytes % (Manual) Eosinophils % (Manual) Basophils % (Manual) Nucleated RBC % Seg Neutrophils # Seg Neutrophils # Man Lymphocytes # (Manual) Monocytes # (Manual) Eosinophils # (Manual) Basophils # (Manual) PT INR Fibrinogen dRVVT Confirm Interp Factor V Activity POC ABG pH POC ABG pCO2 POC ABG pO2 ABG pO2 ABG HCO3 ABG Base Excess ABG Hemoglobin Oxyhemoglobin Sodium 135 L Potassium Chloride 97.7 L Carbon Dioxide 21 L BUN 101 H Creatinine 2.5 H Glucose 116 H POC Glucose 120 H 128 H Lactic Acid Calcium Ionized Calcium Phosphorus Magnesium Direct Bilirubin AST ALT Alkaline Phosphatase Lactate Dehydrogenase Troponin T C-Reactive Protein Total Protein Albumin 1.3 L Prealbumin Triglycerides Cholesterol LDL Cholesterol Direct HDL Cholesterol 25-OH Vitamin D Total PTH Intact Urine pH Urine WBC (Auto) Urine Creatinine Urine Total Protein Fluid Total Protein Vancomycin Trough Rheumatoid Factor Complement C4 Miscellaneous Test Crossmatch 02/22/17 02/22/1718 06:03 11:38 18:19 WBC RBC Hgb Hct MCV MCH MCHC RDW Plt Count Lymph % (Auto) [place] % (Auto) Lymph # [place] # Baso # Seg Neutrophils % Seg Neuts % (Manual) Lymphocytes % (Manual) Monocytes % (Manual) Eosinophils % (Manual) Basophils % (Manual) Nucleated RBC % Seg Neutrophils # Seg Neutrophils # Man Lymphocytes # (Manual) Monocytes # (Manual) Eosinophils # (Manual) Basophils # (Manual) PT INR Fibrinogen dRVVT Confirm Interp Factor V Activity POC ABG pH POC ABG pCO2 POC ABG pO2 ABG pO2 ABG HCO3 ABG Base Excess ABG Hemoglobin Oxyhemoglobin Sodium Potassium Chloride Carbon Dioxide BUN Creatinine Glucose POC Glucose 126 H 147 H 121 H Lactic Acid Calcium Ionized Calcium Phosphorus Magnesium Direct Bilirubin AST ALT Alkaline Phosphatase Lactate Dehydrogenase Troponin T C-Reactive Protein Total Protein Albumin Prealbumin Triglycerides Cholesterol LDL Cholesterol Direct HDL Cholesterol 25-OH Vitamin D Total PTH Intact Urine pH Urine WBC (Auto) Urine Creatinine Urine Total Protein Fluid Total Protein Vancomycin Trough Rheumatoid Factor Complement C4 Miscellaneous Test Crossmatch 02/23/17 02/23/17 02/23/17 05:00 05:46 12:27 WBC RBC Hgb Hct MCV MCH MCHC RDW Plt Count Lymph % (Auto) [place] % (Auto) Lymph # [place] # Baso # Seg Neutrophils % Seg Neuts % (Manual) Lymphocytes % (Manual) Monocytes % (Manual) Eosinophils % (Manual) Basophils % (Manual) Nucleated RBC % Seg Neutrophils # Seg Neutrophils # Man Lymphocytes # (Manual) Monocytes # (Manual) Eosinophils # (Manual) Basophils # (Manual) PT INR Fibrinogen dRVVT Confirm Interp Factor V Activity POC ABG pH POC ABG pCO2 POC ABG pO2 ABG pO2 ABG HCO3 ABG Base Excess ABG Hemoglobin Oxyhemoglobin Sodium 136 L Potassium Chloride 97.1 L Carbon Dioxide BUN 50 H Creatinine 1.5 H Glucose POC Glucose 110 H 115 H Lactic Acid Calcium 8.1 L Ionized Calcium Phosphorus 1.90 L D Magnesium Direct Bilirubin AST ALT Alkaline Phosphatase Lactate Dehydrogenase Troponin T C-Reactive Protein Total Protein Albumin Prealbumin Triglycerides Cholesterol LDL Cholesterol Direct HDL Cholesterol 25-OH Vitamin D Total PTH Intact Urine pH Urine WBC (Auto) Urine Creatinine Urine Total Protein Fluid Total Protein Vancomycin Trough Rheumatoid Factor Complement C4 Miscellaneous Test Crossmatch 02/23/17 02/23/17 02/24/17 18:02 23:18 05:04 WBC RBC Hgb Hct MCV MCH MCHC RDW Plt Count Lymph % (Auto) [place] % (Auto) Lymph # [place] # Baso # Seg Neutrophils % Seg Neuts % (Manual) Lymphocytes % (Manual) Monocytes % (Manual) Eosinophils % (Manual) Basophils % (Manual) Nucleated RBC % Seg Neutrophils # Seg Neutrophils # Man Lymphocytes # (Manual) Monocytes # (Manual) Eosinophils # (Manual) Basophils # (Manual) PT INR Fibrinogen dRVVT Confirm Interp Factor V Activity POC ABG pH POC ABG pCO2 POC ABG pO2 ABG pO2 ABG HCO3 ABG Base Excess ABG Hemoglobin Oxyhemoglobin Sodium Potassium Chloride Carbon Dioxide BUN Creatinine Glucose POC Glucose 111 H 126 H 121 H Lactic Acid Calcium Ionized Calcium Phosphorus Magnesium Direct Bilirubin AST ALT Alkaline Phosphatase Lactate Dehydrogenase Troponin T C-Reactive Protein Total Protein Albumin Prealbumin Triglycerides Cholesterol LDL Cholesterol Direct HDL Cholesterol 25-OH Vitamin D Total PTH Intact Urine pH Urine WBC (Auto) Urine Creatinine Urine Total Protein Fluid Total Protein Vancomycin Trough Rheumatoid Factor Complement C4 Miscellaneous Test Crossmatch 02/24/17 02/24/17 02/24/17 05:20 10:05 11:34 WBC RBC 2.95 L Hgb 8.4 L Hct 25.7 L MCV MCH MCHC RDW 20.8 H Plt Count Lymph % (Auto) [place] % (Auto) Lymph # [place] # Baso # Seg Neutrophils % 71.8 H Seg Neuts % (Manual) Lymphocytes % (Manual) Monocytes % (Manual) Eosinophils % (Manual) Basophils % (Manual) Nucleated RBC % Seg Neutrophils # Seg Neutrophils # Man Lymphocytes # (Manual) Monocytes # (Manual) Eosinophils # (Manual) Basophils # (Manual) PT INR Fibrinogen dRVVT Confirm Interp Factor V Activity POC ABG pH POC ABG pCO2 POC ABG pO2 ABG pO2 ABG HCO3 ABG Base Excess ABG Hemoglobin Oxyhemoglobin Sodium 136 L Potassium Chloride 95.5 L Carbon Dioxide BUN 76 H Creatinine 2.2 H Glucose 109 H POC Glucose 123 H Lactic Acid Calcium Ionized Calcium Phosphorus Magnesium Direct Bilirubin AST ALT Alkaline Phosphatase Lactate Dehydrogenase Troponin T C-Reactive Protein Total Protein Albumin Prealbumin Triglycerides Cholesterol LDL Cholesterol Direct HDL Cholesterol 25-OH Vitamin D Total PTH Intact Urine pH Urine WBC (Auto) Urine Creatinine Urine Total Protein Fluid Total Protein Vancomycin Trough Rheumatoid Factor Complement C4 Miscellaneous Test Crossmatch 02/24/17 02/24/17 02/25/17 17:43 23:02 05:00 WBC RBC Hgb Hct MCV MCH MCHC RDW Plt Count Lymph % (Auto) [place] % (Auto) Lymph # [place] # Baso # Seg Neutrophils % Seg Neuts % (Manual) Lymphocytes % (Manual) Monocytes % (Manual) Eosinophils % (Manual) Basophils % (Manual) Nucleated RBC % Seg Neutrophils # Seg Neutrophils # Man Lymphocytes # (Manual) Monocytes # (Manual) Eosinophils # (Manual) Basophils # (Manual) PT INR Fibrinogen dRVVT Confirm Interp Factor V Activity POC ABG pH POC ABG pCO2 POC ABG pO2 ABG pO2 ABG HCO3 ABG Base Excess ABG Hemoglobin Oxyhemoglobin Sodium Potassium Chloride 96.8 L Carbon Dioxide BUN 94 H Creatinine 2.8 H Glucose 118 H POC Glucose 128 H 144 H Lactic Acid Calcium Ionized Calcium Phosphorus Magnesium Direct Bilirubin AST ALT Alkaline Phosphatase Lactate Dehydrogenase Troponin T C-Reactive Protein Total Protein Albumin Prealbumin Triglycerides Cholesterol LDL Cholesterol Direct HDL Cholesterol 25-OH Vitamin D Total PTH Intact Urine pH Urine WBC (Auto) Urine Creatinine Urine Total Protein Fluid Total Protein Vancomycin Trough Rheumatoid Factor Complement C4 Miscellaneous Test Crossmatch 02/25/17 02/25/17 02/25/17 05:32 11:44 18:18 WBC RBC Hgb Hct MCV MCH MCHC RDW Plt Count Lymph % (Auto) [place] % (Auto) Lymph # [place] # Baso # Seg Neutrophils % Seg Neuts % (Manual) Lymphocytes % (Manual) Monocytes % (Manual) Eosinophils % (Manual) Basophils % (Manual) Nucleated RBC % Seg Neutrophils # Seg Neutrophils # Man Lymphocytes # (Manual) Monocytes # (Manual) Eosinophils # (Manual) Basophils # (Manual) PT INR Fibrinogen dRVVT Confirm Interp Factor V Activity POC ABG pH POC ABG pCO2 POC ABG pO2 ABG pO2 ABG HCO3 ABG Base Excess ABG Hemoglobin Oxyhemoglobin Sodium Potassium Chloride Carbon Dioxide BUN Creatinine Glucose POC Glucose 118 H 106 H 210 H Lactic Acid Calcium Ionized Calcium Phosphorus Magnesium Direct Bilirubin AST ALT Alkaline Phosphatase Lactate Dehydrogenase Troponin T C-Reactive Protein Total Protein Albumin Prealbumin Triglycerides Cholesterol LDL Cholesterol Direct HDL Cholesterol 25-OH Vitamin D Total PTH Intact Urine pH Urine WBC (Auto) Urine Creatinine Urine Total Protein Fluid Total Protein Vancomycin Trough Rheumatoid Factor Complement C4 Miscellaneous Test Crossmatch 02/26/17 02/26/17 02/26/17 00:07 05:14 12:07 WBC RBC Hgb Hct MCV MCH MCHC RDW Plt Count Lymph % (Auto) [place] % (Auto) Lymph # [place] # Baso # Seg Neutrophils % Seg Neuts % (Manual) Lymphocytes % (Manual) Monocytes % (Manual) Eosinophils % (Manual) Basophils % (Manual) Nucleated RBC % Seg Neutrophils # Seg Neutrophils # Man Lymphocytes # (Manual) Monocytes # (Manual) Eosinophils # (Manual) Basophils # (Manual) PT INR Fibrinogen dRVVT Confirm Interp Factor V Activity POC ABG pH POC ABG pCO2 POC ABG pO2 ABG pO2 ABG HCO3 ABG Base Excess ABG Hemoglobin Oxyhemoglobin Sodium Potassium Chloride Carbon Dioxide BUN Creatinine Glucose POC Glucose 136 H 142 H 132 H Lactic Acid Calcium Ionized Calcium Phosphorus Magnesium Direct Bilirubin AST ALT Alkaline Phosphatase Lactate Dehydrogenase Troponin T C-Reactive Protein Total Protein Albumin Prealbumin Triglycerides Cholesterol LDL Cholesterol Direct HDL Cholesterol 25-OH Vitamin D Total PTH Intact Urine pH Urine WBC (Auto) Urine Creatinine Urine Total Protein Fluid Total Protein Vancomycin Trough Rheumatoid Factor Complement C4 Miscellaneous Test Crossmatch 02/26/17 02/26/17 02/27/17 18:35 23:54 06:25 WBC RBC Hgb Hct MCV MCH MCHC RDW Plt Count Lymph % (Auto) [place] % (Auto) Lymph # [place] # Baso # Seg Neutrophils % Seg Neuts % (Manual) Lymphocytes % (Manual) Monocytes % (Manual) Eosinophils % (Manual) Basophils % (Manual) Nucleated RBC % Seg Neutrophils # Seg Neutrophils # Man Lymphocytes # (Manual) Monocytes # (Manual) Eosinophils # (Manual) Basophils # (Manual) PT INR Fibrinogen dRVVT Confirm Interp Factor V Activity POC ABG pH POC ABG pCO2 POC ABG pO2 ABG pO2 ABG HCO3 ABG Base Excess ABG Hemoglobin Oxyhemoglobin Sodium Potassium Chloride Carbon Dioxide BUN Creatinine Glucose POC Glucose 155 H 150 H 138 H Lactic Acid Calcium Ionized Calcium Phosphorus Magnesium Direct Bilirubin AST ALT Alkaline Phosphatase Lactate Dehydrogenase Troponin T C-Reactive Protein Total Protein Albumin Prealbumin Triglycerides Cholesterol LDL Cholesterol Direct HDL Cholesterol 25-OH Vitamin D Total PTH Intact Urine pH Urine WBC (Auto) Urine Creatinine Urine Total Protein Fluid Total Protein Vancomycin Trough Rheumatoid Factor Complement C4 Miscellaneous Test Crossmatch 02/27/17 02/27/17 02/27/17 08:50 11:50 17:38 WBC RBC Hgb Hct MCV MCH MCHC RDW Plt Count Lymph % (Auto) [place] % (Auto) Lymph # [place] # Baso # Seg Neutrophils % Seg Neuts % (Manual) Lymphocytes % (Manual) Monocytes % (Manual) Eosinophils % (Manual) Basophils % (Manual) Nucleated RBC % Seg Neutrophils # Seg Neutrophils # Man Lymphocytes # (Manual) Monocytes # (Manual) Eosinophils # (Manual) Basophils # (Manual) PT INR Fibrinogen dRVVT Confirm Interp Factor V Activity POC ABG pH POC ABG pCO2 POC ABG pO2 ABG pO2 ABG HCO3 ABG Base Excess ABG Hemoglobin Oxyhemoglobin Sodium Potassium 3.2 L Chloride Carbon Dioxide BUN 95 H Creatinine 2.7 H Glucose 179 H POC Glucose 150 H 133 H Lactic Acid Calcium Ionized Calcium Phosphorus Magnesium Direct Bilirubin AST ALT Alkaline Phosphatase Lactate Dehydrogenase Troponin T C-Reactive Protein Total Protein Albumin Prealbumin Triglycerides Cholesterol LDL Cholesterol Direct HDL Cholesterol 25-OH Vitamin D Total PTH Intact Urine pH Urine WBC (Auto) Urine Creatinine Urine Total Protein Fluid Total Protein Vancomycin Trough Rheumatoid Factor Complement C4 Miscellaneous Test Crossmatch 02/27/17 02/28/17 02/28/17 23:55 05:23 06:10 WBC RBC Hgb Hct MCV MCH MCHC RDW Plt Count Lymph % (Auto) [place] % (Auto) Lymph # [place] # Baso # Seg Neutrophils % Seg Neuts % (Manual) Lymphocytes % (Manual) Monocytes % (Manual) Eosinophils % (Manual) Basophils % (Manual) Nucleated RBC % Seg Neutrophils # Seg Neutrophils # Man Lymphocytes # (Manual) Monocytes # (Manual) Eosinophils # (Manual) Basophils # (Manual) PT INR Fibrinogen dRVVT Confirm Interp Factor V Activity POC ABG pH POC ABG pCO2 POC ABG pO2 ABG pO2 ABG HCO3 ABG Base Excess ABG Hemoglobin Oxyhemoglobin Sodium 134 L Potassium 3.0 L Chloride 94.9 L Carbon Dioxide BUN 53 H Creatinine 1.9 H Glucose 138 H POC Glucose 134 H 164 H Lactic Acid Calcium Ionized Calcium Phosphorus 2.00 L D Magnesium Direct Bilirubin AST ALT Alkaline Phosphatase Lactate Dehydrogenase Troponin T C-Reactive Protein Total Protein Albumin Prealbumin Triglycerides Cholesterol LDL Cholesterol Direct HDL Cholesterol 25-OH Vitamin D Total PTH Intact Urine pH Urine WBC (Auto) Urine Creatinine Urine Total Protein Fluid Total Protein Vancomycin Trough Rheumatoid Factor Complement C4 Miscellaneous Test Crossmatch 02/28/17 02/28/17 02/28/17 12:18 17:54 23:47 WBC RBC Hgb Hct MCV MCH MCHC RDW Plt Count Lymph % (Auto) [place] % (Auto) Lymph # [place] # Baso # Seg Neutrophils % Seg Neuts % (Manual) Lymphocytes % (Manual) Monocytes % (Manual) Eosinophils % (Manual) Basophils % (Manual) Nucleated RBC % Seg Neutrophils # Seg Neutrophils # Man Lymphocytes # (Manual) Monocytes # (Manual) Eosinophils # (Manual) Basophils # (Manual) PT INR Fibrinogen dRVVT Confirm Interp Factor V Activity POC ABG pH POC ABG pCO2 POC ABG pO2 ABG pO2 ABG HCO3 ABG Base Excess ABG Hemoglobin Oxyhemoglobin Sodium Potassium Chloride Carbon Dioxide BUN Creatinine Glucose POC Glucose 135 H 140 H 144 H Lactic Acid Calcium Ionized Calcium Phosphorus Magnesium Direct Bilirubin AST ALT Alkaline Phosphatase Lactate Dehydrogenase Troponin T C-Reactive Protein Total Protein Albumin Prealbumin Triglycerides Cholesterol LDL Cholesterol Direct HDL Cholesterol 25-OH Vitamin D Total PTH Intact Urine pH Urine WBC (Auto) Urine Creatinine Urine Total Protein Fluid Total Protein Vancomycin Trough Rheumatoid Factor Complement C4 Miscellaneous Test Crossmatch 03/01/17 03/01/17 03/01/17 04:00 12:02 17:13 WBC RBC Hgb Hct MCV MCH MCHC RDW Plt Count Lymph % (Auto) [place] % (Auto) Lymph # [place] # Baso # Seg Neutrophils % Seg Neuts % (Manual) Lymphocytes % (Manual) Monocytes % (Manual) Eosinophils % (Manual) Basophils % (Manual) Nucleated RBC % Seg Neutrophils # Seg Neutrophils # Man Lymphocytes # (Manual) Monocytes # (Manual) Eosinophils # (Manual) Basophils # (Manual) PT INR Fibrinogen dRVVT Confirm Interp Factor V Activity POC ABG pH POC ABG pCO2 POC ABG pO2 ABG pO2 ABG HCO3 ABG Base Excess ABG Hemoglobin Oxyhemoglobin Sodium Potassium 3.0 L Chloride 97.0 L Carbon Dioxide BUN 81 H Creatinine 2.6 H Glucose 121 H POC Glucose 165 H 126 H Lactic Acid Calcium Ionized Calcium Phosphorus Magnesium Direct Bilirubin AST ALT Alkaline Phosphatase Lactate Dehydrogenase Troponin T C-Reactive Protein Total Protein Albumin Prealbumin Triglycerides Cholesterol LDL Cholesterol Direct HDL Cholesterol 25-OH Vitamin D Total PTH Intact Urine pH Urine WBC (Auto) Urine Creatinine Urine Total Protein Fluid Total Protein Vancomycin Trough Rheumatoid Factor Complement C4 Miscellaneous Test Crossmatch 03/02/17 03/02/17 03/02/17 00:10 03:05 05:20 WBC RBC Hgb Hct MCV MCH MCHC RDW Plt Count Lymph % (Auto) [place] % (Auto) Lymph # [place] # Baso # Seg Neutrophils % Seg Neuts % (Manual) Lymphocytes % (Manual) Monocytes % (Manual) Eosinophils % (Manual) Basophils % (Manual) Nucleated RBC % Seg Neutrophils # Seg Neutrophils # Man Lymphocytes # (Manual) Monocytes # (Manual) Eosinophils # (Manual) Basophils # (Manual) PT INR Fibrinogen dRVVT Confirm Interp Factor V Activity POC ABG pH POC ABG pCO2 POC ABG pO2 ABG pO2 ABG HCO3 ABG Base Excess ABG Hemoglobin Oxyhemoglobin Sodium Potassium 3.0 L Chloride Carbon Dioxide BUN 41 H Creatinine 1.6 H Glucose 130 H POC Glucose 129 H 173 H Lactic Acid Calcium Ionized Calcium Phosphorus 1.70 L D Magnesium 1.40 L Direct Bilirubin AST ALT Alkaline Phosphatase Lactate Dehydrogenase Troponin T C-Reactive Protein Total Protein Albumin Prealbumin Triglycerides Cholesterol LDL Cholesterol Direct HDL Cholesterol 25-OH Vitamin D Total PTH Intact Urine pH Urine WBC (Auto) Urine Creatinine Urine Total Protein Fluid Total Protein Vancomycin Trough Rheumatoid Factor Complement C4 Miscellaneous Test Crossmatch 03/02/17 03/02/17 03/02/17 11:49 16:38 23:46 WBC RBC Hgb Hct MCV MCH MCHC RDW Plt Count Lymph % (Auto) [place] % (Auto) Lymph # [place] # Baso # Seg Neutrophils % Seg Neuts % (Manual) Lymphocytes % (Manual) Monocytes % (Manual) Eosinophils % (Manual) Basophils % (Manual) Nucleated RBC % Seg Neutrophils # Seg Neutrophils # Man Lymphocytes # (Manual) Monocytes # (Manual) Eosinophils # (Manual) Basophils # (Manual) PT INR Fibrinogen dRVVT Confirm Interp Factor V Activity POC ABG pH POC ABG pCO2 POC ABG pO2 ABG pO2 ABG HCO3 ABG Base Excess ABG Hemoglobin Oxyhemoglobin Sodium Potassium Chloride Carbon Dioxide BUN Creatinine Glucose POC Glucose 129 H 141 H 119 H Lactic Acid Calcium Ionized Calcium Phosphorus Magnesium Direct Bilirubin AST ALT Alkaline Phosphatase Lactate Dehydrogenase Troponin T C-Reactive Protein Total Protein Albumin Prealbumin Triglycerides Cholesterol LDL Cholesterol Direct HDL Cholesterol 25-OH Vitamin D Total PTH Intact Urine pH Urine WBC (Auto) Urine Creatinine Urine Total Protein Fluid Total Protein Vancomycin Trough Rheumatoid Factor Complement C4 Miscellaneous Test Crossmatch 03/03/17 03/03/17 03/03/17 04:00 11:59 18:08 WBC RBC Hgb Hct MCV MCH MCHC RDW Plt Count Lymph % (Auto) [place] % (Auto) Lymph # [place] # Baso # Seg Neutrophils % Seg Neuts % (Manual) Lymphocytes % (Manual) Monocytes % (Manual) Eosinophils % (Manual) Basophils % (Manual) Nucleated RBC % Seg Neutrophils # Seg Neutrophils # Man Lymphocytes # (Manual) Monocytes # (Manual) Eosinophils # (Manual) Basophils # (Manual) PT INR Fibrinogen dRVVT Confirm Interp Factor V Activity POC ABG pH POC ABG pCO2 POC ABG pO2 ABG pO2 ABG HCO3 ABG Base Excess ABG Hemoglobin Oxyhemoglobin Sodium Potassium Chloride Carbon Dioxide BUN 70 H Creatinine 2.3 H Glucose POC Glucose 125 H 131 H Lactic Acid Calcium Ionized Calcium Phosphorus Magnesium Direct Bilirubin AST ALT Alkaline Phosphatase Lactate Dehydrogenase Troponin T C-Reactive Protein Total Protein Albumin Prealbumin Triglycerides Cholesterol LDL Cholesterol Direct HDL Cholesterol 25-OH Vitamin D Total PTH Intact Urine pH Urine WBC (Auto) Urine Creatinine Urine Total Protein Fluid Total Protein Vancomycin Trough Rheumatoid Factor Complement C4 Miscellaneous Test Crossmatch 03/03/17 03/03/17 03/04/17 20:17 23:43 05:21 WBC RBC Hgb Hct MCV MCH MCHC RDW Plt Count Lymph % (Auto) [place] % (Auto) Lymph # [place] # Baso # Seg Neutrophils % Seg Neuts % (Manual) Lymphocytes % (Manual) Monocytes % (Manual) Eosinophils % (Manual) Basophils % (Manual) Nucleated RBC % Seg Neutrophils # Seg Neutrophils # Man Lymphocytes # (Manual) Monocytes # (Manual) Eosinophils # (Manual) Basophils # (Manual) PT INR Fibrinogen dRVVT Confirm Interp Factor V Activity POC ABG pH 7.518 H POC ABG pCO2 28.8 L POC ABG pO2 61 L ABG pO2 ABG HCO3 ABG Base Excess ABG Hemoglobin Oxyhemoglobin Sodium Potassium Chloride Carbon Dioxide BUN Creatinine Glucose POC Glucose 122 H 130 H Lactic Acid Calcium Ionized Calcium Phosphorus Magnesium Direct Bilirubin AST ALT Alkaline Phosphatase Lactate Dehydrogenase Troponin T C-Reactive Protein Total Protein Albumin Prealbumin Triglycerides Cholesterol LDL Cholesterol Direct HDL Cholesterol 25-OH Vitamin D Total PTH Intact Urine pH Urine WBC (Auto) Urine Creatinine Urine Total Protein Fluid Total Protein Vancomycin Trough Rheumatoid Factor Complement C4 Miscellaneous Test Crossmatch 03/04/17 03/05/17 03/06/17 06:10 06:15 03:52 WBC RBC Hgb Hct MCV MCH MCHC RDW Plt Count Lymph % (Auto) [place] % (Auto) Lymph # [place] # Baso # Seg Neutrophils % Seg Neuts % (Manual) Lymphocytes % (Manual) Monocytes % (Manual) Eosinophils % (Manual) Basophils % (Manual) Nucleated RBC % Seg Neutrophils # Seg Neutrophils # Man Lymphocytes # (Manual) Monocytes # (Manual) Eosinophils # (Manual) Basophils # (Manual) PT INR Fibrinogen dRVVT Confirm Interp Factor V Activity POC ABG pH POC ABG pCO2 POC ABG pO2 ABG pO2 ABG HCO3 ABG Base Excess ABG Hemoglobin Oxyhemoglobin Sodium 135 L 136 L Potassium 5.2 H 5.9 H Chloride 95.8 L 97.7 L 96.0 L Carbon Dioxide 21 L 21 L BUN 40 H 56 H 70 H Creatinine 1.7 H 2.4 H 3.0 H Glucose 118 H POC Glucose Lactic Acid Calcium Ionized Calcium Phosphorus 4.80 H D 6.00 H D Magnesium 2.60 H Direct Bilirubin AST ALT Alkaline Phosphatase 165 H Lactate Dehydrogenase Troponin T C-Reactive Protein Total Protein Albumin 1.5 L Prealbumin Triglycerides Cholesterol LDL Cholesterol Direct HDL Cholesterol 25-OH Vitamin D Total PTH Intact Urine pH Urine WBC (Auto) Urine Creatinine Urine Total Protein Fluid Total Protein Vancomycin Trough Rheumatoid Factor Complement C4 Miscellaneous Test Crossmatch 03/06/17 11:19 WBC RBC Hgb Hct MCV MCH MCHC RDW Plt Count Lymph % (Auto) [place] % (Auto) Lymph # [place] # Baso # Seg Neutrophils % Seg Neuts % (Manual) Lymphocytes % (Manual) Monocytes % (Manual) Eosinophils % (Manual) Basophils % (Manual) Nucleated RBC % Seg Neutrophils # Seg Neutrophils # Man Lymphocytes # (Manual) Monocytes # (Manual) Eosinophils # (Manual) Basophils # (Manual) PT INR Fibrinogen dRVVT Confirm Interp Factor V Activity POC ABG pH POC ABG pCO2 POC ABG pO2 ABG pO2 ABG HCO3 ABG Base Excess ABG Hemoglobin Oxyhemoglobin Sodium Potassium Chloride Carbon Dioxide BUN Creatinine Glucose POC Glucose 108 H Lactic Acid Calcium Ionized Calcium Phosphorus Magnesium Direct Bilirubin AST ALT Alkaline Phosphatase Lactate Dehydrogenase Troponin T C-Reactive Protein Total Protein Albumin Prealbumin Triglycerides Cholesterol LDL Cholesterol Direct HDL Cholesterol 25-OH Vitamin D Total PTH Intact Urine pH Urine WBC (Auto) Urine Creatinine Urine Total Protein Fluid Total Protein Vancomycin Trough Rheumatoid Factor Complement C4 Miscellaneous Test Crossmatch Allied health notes reviewed: nursing
--- NOTE | 2017-03-06 15:18 | XRay Report ---
AP CHEST: HISTORY: Vas-Cath placement The left subclavian vas catheter and left arm PICC have been removed. The tracheostomy and nasogastric tube remain in adequate position. Heart size and pulmonary vascularity are within normal limits. Hazy opacity at the right lung base is identified that has nearly resolved since 02/26/17. This appears to represent atelectasis or layering pleural effusion. The remainder of the lungs are clear. No pneumothorax. IMPRESSION: Right lower lobe opacity as described, improved since 02/26/17.
--- NOTE | 2017-03-06 15:34 | Event Note ---
Date: 03/06/17 The patient was septic, so her tunneled dialysis catheter was removed. After a line holiday, a temporary dialysis catheter is requested.
--- NOTE | 2017-03-06 15:36 | Operative Report ---
Operative Report Operative Report: Procedure: Placement of a left common femoral temporary dialysis catheter. Date of Procedure: 03/06/2017 History/Indication: This is a 47 year old female with renal failure. Impression: Successful placement of a Trialysis temporary dialysis catheter via the left common femoral vein. Physician: Anisha Sy MD Technique/Procedural Details: Informed consent was obtained. The patient's left groin was prepped and draped in the usual sterile fashion. After administration of local anesthetic, the left common femoral vein was accessed under continuous ultrasound guidance, with an 18-gauge needle. A J-wire was advanced through the needle, and the needle was exchanged for a tissue dilator. After tissue dilation, the temporary dialysis catheter was advanced over the wire. The wire was removed. All 3 lumens were aspirated and flushed. A heparin lock was instilled in each of the 2 larger lumens. A sterile dressing was placed. There were no complications. Discussion: A 30 cm Trialysis catheter was successfully placed. The left common femoral vein is patent and compressible. Specimen: None EBL: <5 cc
--- NOTE | 2017-03-06 16:15 | Progress Note ---
Assessment and Plan Assessment and plan: Patient is 46-year-old woman with a history of hypertension, diabetes, asthma, hyperlipidemia, chronic kidney disease and anxiety , who was brought in by family because, she couldn't get her words out, her face was also twisted, she was admitted for acute CVA and accelerated hypertension, she had a hx of poor adherence with her medications, and uncontrolled htn. Patient's SBP on admission was noted be greater than 260. TPA was started but this was discontinued after 5 minutes because her blood pressure became uncontrolled. The TPA was not initiated again because the patient was outside the TPA window. Gram positive septicemia case dw ID vasc cath removed, and now has temp HD cath placed on 03/06, on abx, TTE no vegetations, blood cx growing enterococus alonzo Status post cardiac arrest , 11/21/16 on Mechanical ventilation >96 hrs, > 6 months Vent Dependant Respiratory failure secondary to Anoxic Brain injury S/P Tracheostomy Severe Sepsis with septic shock; has completed multiple courses of abx Surgical wound infection/gram-negative sepsis/candidemia/peritonitis - On TPN ESRD - on HD Acute CVA with infarct - Neurology input appreciated - CT shows continued evolution of left MCA infarct with slight mass effect and edema, and there is no hemorrhage - PRINCE showed hyperdynamic with ef of 75%, neither clot nor septal defect seen - MRA Brain shows near complete occlusion of M2 and M3 of the left MCA - Repeat CT scan done on 09/11, shows stable findings - carotid doppler negative - Echo shows preserved systolic function but does show some left ventricular diastolic dysfunction - continue asa and statin Persistent vegetative state - This patient's needs placement at SNF - She was denied for LTACH Nosocomial acquired aspiration pneumonia/sepsis/UTI/PERITONITIS - Has completed multiple courses of abx A. fib with RVR -On amio drip, cannot change to PO due to persistent nausea and vomiting, NPO Diabetes type 2. -Continue sliding-scale regular insulin and Accu-Cheks. Hyperlipidemia. Continue statin Severe Protein calorie Malnutrition/Adult failure to thrive - TPN Anemia requiring multiple transfusions/acute blood loss -stable, keep hg above 7 Sacral decubitus ulcer - Status post debridement -Wound vac in place Disposition. Very poor prognosis. DNR - The high probability of a clinically significant, sudden or life threatening deterioration of the [neurologic, CV] system(s) required my full and direct attention, intervention and personal management. The aggregate critical care time was [35] minutes. This time is in addition to time spent performing reported procedures but includes the following: [x] Data Review and interpretation [x] Patient assessment and monitoring of vital signs [x] Documentation [x] Medication orders and management History Interval history: patient seen and examined, remains unresponsive on the ventilator. febrile overnight, no vomiting was tachypneic and tachycardic, overnight Hospitalist Physical - Physical exam Narrative exam: GEN: Ill appearing, trach, staring into space,, non purposeful movement NECK: SUPPLE, trach in place, ngt in place and to suction. CVS:Irregular Irregular with LUNGS/CHEST: NORMAL CHEST EXPANSION B, GOOD AIR ENTRY B, tachypena ABD: SOFT, no grimise on abdominal palpation, Ostomy bags at two side by side fistula site. GBS, NO REBOUND OR GUARDING, peg tube in place EXT/SKIN: NO SIGNIFICANT EDEMA BUT WITH UNSTAGEABLE SACRAL DECUB, wound vac inplace MSK: +spontaneous non purposeful movement NEURO: on a ventilator and unresponsive despite being off sedation PSY: Comatose, - Constitutional Vitals: Temp Pulse Resp BP Pulse Ox 100.9 F H 106 H 20 124/71 96 03/06/17 15:21 03/06/17 15:27 03/06/17 14:10 03/06/17 15:00 03/06/17 15:27 General appearance: Present: no acute distress, well-nourished Results - Labs CBC & Chem 7: 02/24/17 10:05 03/06/17 03:52 Labs: Laboratory Last Values WBC 10.2 K/mm3 (4.5-11.0) 02/24/17 10:05 RBC 2.95 M/mm3 (3.65-5.03) L 02/24/17 10:05 Hgb 8.4 gm/dl (10.1-14.3) L 02/24/17 10:05 Hct 25.7 % (30.3-42.9) L 02/24/17 10:05 MCV 87 fl (79-97) 02/24/17 10:05 MCH 28 pg (28-32) 02/24/17 10:05 MCHC 33 % (30-34) 02/24/17 10:05 RDW 20.8 % (13.2-15.2) H 02/24/17 10:05 Plt Count 333 K/mm3 (140-440) 02/24/17 10:05 Lymph % (Auto) 19.8 % (13.4-35.0) 02/24/17 10:05 [place] % (Auto) 7.2 % (0.0-7.3) 02/24/17 10:05 Eos % (Auto) 0.7 % (0.0-4.3) 02/24/17 10:05 Baso % (Auto) 0.5 % (0.0-1.8) 02/24/17 10:05 Lymph # 2.0 K/mm3 (1.2-5.4) 02/24/17 10:05 [place] # 0.7 K/mm3 (0.0-0.8) 02/24/17 10:05 Eos # 0.1 K/mm3 (0.0-0.4) 02/24/17 10:05 Baso # 0.0 K/mm3 (0.0-0.1) 02/24/17 10:05 Add Manual Diff Complete 12/19/16 05:02 Total Counted 100 12/19/16 05:02 Seg Neutrophils % 71.8 % (40.0-70.0) H 02/24/17 10:05 Seg Neuts % (Manual) 64.0 % (40.0-70.0) 12/19/16 05:02 Band Neutrophils % 15.0 % 12/19/16 05:02 Lymphocytes % (Manual) 13.0 % (13.4-35.0) L 12/19/16 05:02 Reactive Lymphs % (Man) 0 % 12/19/16 05:02 Monocytes % (Manual) 7.0 % (0.0-7.3) 12/19/16 05:02 Eosinophils % (Manual) 0 % (0.0-4.3) 12/19/16 05:02 Basophils % (Manual) 1.0 % (0.0-1.8) 12/19/16 05:02 Metamyelocytes % 0 % 12/19/16 05:02 Myelocytes % 0 % 12/19/16 05:02 Promyelocytes % 0 % 12/19/16 05:02 Blast Cells % 0 % 12/19/16 05:02 Nucleated RBC % 1.0 % (0.0-0.9) H 12/19/16 05:02 Seg Neutrophils # 7.3 K/mm3 (1.8-7.7) 02/24/17 10:05 Seg Neutrophils # Man 12.9 K/mm3 (1.8-7.7) H 12/19/16 05:02 Band Neutrophils # 3.0 K/mm3 12/19/16 05:02 Lymphocytes # (Manual) 2.6 K/mm3 (1.2-5.4) 12/19/16 05:02 Abs React Lymphs (Man) 0.0 K/mm3 12/19/16 05:02 Monocytes # (Manual) 1.4 K/mm3 (0.0-0.8) H 12/19/16 05:02 Eosinophils # (Manual) 0.0 K/mm3 (0.0-0.4) 12/19/16 05:02 Basophils # (Manual) 0.2 K/mm3 (0.0-0.1) H 12/19/16 05:02 Metamyelocytes # 0.0 K/mm3 12/19/16 05:02 Myelocytes # 0.0 K/mm3 12/19/16 05:02 Promyelocytes # 0.0 K/mm3 12/19/16 05:02 Blast Cells # 0.0 K/mm3 12/19/16 05:02 Pathologist Review 09/13/16 04:00 WBC Morphology Not Reportable 12/19/16 05:02 Hypersegmented Neuts Not Reportable 12/19/16 05:02 Hyposegmented Neuts Not Reportable 12/19/16 05:02 Hypogranular Neuts Not Reportable 12/19/16 05:02 Smudge Cells Not Reportable 12/19/16 05:02 Toxic Granulation Not Reportable 12/19/16 05:02 Toxic Vacuolation Not Reportable 12/19/16 05:02 Dohle Bodies Not Reportable 12/19/16 05:02 Pelger-Huet Anomaly Not Reportable 12/19/16 05:02 Jasmina Rods Not Reportable 12/19/16 05:02 Platelet Estimate Consistent w auto 12/19/16 05:02 Clumped Platelets Not Reportable 12/19/16 05:02 Plt Clumps, EDTA Not Reportable 12/19/16 05:02 Large Platelets Not Reportable 12/19/16 05:02 Giant Platelets Not Reportable 12/19/16 05:02 Platelet Satelliting Not Reportable 12/19/16 05:02 Plt Morphology Comment Not Reportable 12/19/16 05:02 RBC Morphology Not Reportable 12/19/16 05:02 Dimorphic RBCs Not Reportable 12/19/16 05:02 Polychromasia Not Reportable 12/19/16 05:02 Hypochromasia Not Reportable 12/19/16 05:02 Poikilocytosis Not Reportable 12/19/16 05:02 Anisocytosis Not Reportable 12/19/16 05:02 Microcytosis Not Reportable 12/19/16 05:02 Macrocytosis Not Reportable 12/19/16 05:02 Spherocytes Not Reportable 12/19/16 05:02 Pappenheimer Bodies Not Reportable 12/19/16 05:02 Sickle Cells Not Reportable 12/19/16 05:02 Target Cells Few 12/19/16 05:02 Tear Drop Cells Not Reportable 12/19/16 05:02 Ovalocytes Not Reportable 12/19/16 05:02 Stomatocytes Rare 12/03/16 04:00 Helmet Cells Not Reportable 12/19/16 05:02 [place] Bodies Not Reportable 12/19/16 05:02 [place] Rings Not Reportable 12/19/16 05:02 Chuck Cells Not Reportable 12/19/16 05:02 Bite Cells Not Reportable 12/19/16 05:02 Crenated Cell Not Reportable 12/19/16 05:02 Elliptocytes Not Reportable 12/19/16 05:02 Acanthocytes (Spur) Not Reportable 12/19/16 05:02 Rouleaux Not Reportable 12/19/16 05:02 Hemoglobin C Crystals Not Reportable 12/19/16 05:02 Schistocytes Not Reportable 12/19/16 05:02 Malaria parasites Not Reportable 12/19/16 05:02 ESR > 140.0 mm/Hr (0-20) 09/08/16 11:48 Jun Bodies Not Reportable 12/19/16 05:02 Hem Pathologist Commnt No 12/19/16 05:02 PT 15.4 Sec. (12.2-14.9) H 01/13/17 15:50 INR 1.16 (0.87-1.13) H 01/13/17 15:50 APTT 33.0 Sec. (24.2-36.6) 10/09/16 03:45 Thrombin Time 16.8 Sec. (15.1-19.6) 09/03/16 00:10 Fibrinogen 750 mg/dl (211-480) H 09/08/16 11:48 Lupus Anticoagulant see below 09/12/16 09:59 LA PTT Baseline See scanned report 09/12/16 09:59 dRVVT Confirm Interp Positive (Negative) H 09/12/16 09:59 dRVVT Screen 50:50 See scanned report 09/12/16 09:59 dRVVT Mix Interpret See scanned report 09/12/16 09:59 Protein C Antigen 122 % (70-140) 09/08/16 15:35 Free Protein S 97 % normal (50-147) 09/08/16 15:35 Total Protein S 109 % (70-140) 09/08/16 15:35 Antithrombin III Ag 100 % (80-120) 09/08/16 15:35 Heparin Anti-Xa, Unfract Negative (Negative) 09/29/16 13:35 Factor V Activity 182 % (65-150) H 09/08/16 15:35 POC ABG pH 7.518 (7.35-7.45) H 03/03/17 20: ABG pH 7.450 pH Units (7.350-7.450) 12/05/16 Unknown POC ABG pCO2 28.8 (35-45) L 03/03/17 20:17 ABG pCO2 29.6 mm Hg 12/05/16 Unknown POC ABG pO2 61 (80-105) L 03/03/17 20: ABG pO2 75.2 mm Hg (80.0-90.0) L 12/05/16 Unknown POC ABG HCO3 23.4 03/03/17 20: ABG HCO3 20.1 mmol/L (20.0-26.0) 12/05/16 Unknown POC ABG Total CO2 24 03/03/17 20:17 POC ABG O2 Sat 94 03/03/17 20:17 ABG O2 Saturation 96.8 % (95.0-99.0) 12/05/16 Unknown ABG O2 Content 9.9 (0.0-44) 12/05/16 Unknown POC ABG Base Excess 0 03/03/17 20:17 ABG Base Excess -3.4 mmol/L (-2.0-3.0) L 12/05/16 Unknown ABG Hemoglobin 7.4 gm/dl (12.0-16.0) L 12/05/16 Unknown ABG Carboxyhemoglobin 1.8 % (0.0-5.0) 12/05/16 Unknown ABG Methemoglobin 0.6 % (0.0-1.5) 12/05/16 Unknown Oxyhemoglobin 94.5 % (95.0-99.0) L 12/05/16 Unknown FiO2 40 % 03/03/17 20:17 Sodium 136 mmol/L (137-145) L 03/06/17 03:52 Potassium 5.9 mmol/L (3.6-5.0) H 03/06/17 03:52 Chloride 96.0 mmol/L (98-107) L 03/06/17 03:52 Carbon Dioxide 21 mmol/L (22-30) L 03/06/17 03:52 Anion Gap 25 mmol/L 03/06/17 03:52 BUN 70 mg/dL (7-17) H 03/06/17 03:52 Creatinine 3.0 mg/dL (0.7-1.2) H 03/06/17 03:52 Estimated GFR 20 ml/min 03/06/17 03:52 BUN/Creatinine Ratio 23 % 03/06/17 03:52 Glucose 86 mg/dL (65-100) 03/06/17 03:52 POC Glucose 108 (70-105) H 03/06/17 11:19 Osmolality 351 Mosm/kg 09/16/16 11:47 Lactic Acid 2.30 mmol/L (0.7-2.0) H* 01/09/17 08:22 Calcium 8.7 mg/dL (8.4-10.2) 03/06/17 03:52 Ionized Calcium 6.0 mg/dL (4.8-5.6) H 02/15/17 19:08 Phosphorus 6.00 mg/dL (2.5-4.5) H D 03/06/17 03:52 Magnesium 2.60 mg/dL (1.7-2.3) H 03/06/17 03:52 Total Bilirubin 0.50 mg/dL (0.1-1.2) 03/06/17 03:52 Direct Bilirubin 0.2 mg/dL (0-0.2) 01/28/17 04:00 Indirect Bilirubin 0.3 mg/dL 01/28/17 04:00 AST 18 units/L (5-40) 03/06/17 03:52 ALT 18 units/L (7-56) 03/06/17 03:52 Alkaline Phosphatase 165 units/L (35-129) H 03/06/17 03:52 Ammonia 27.0 umol/L (25-60) 09/07/16 08:37 Lactate Dehydrogenase 170 units/L (91-180) 01/13/17 15:50 Total Creatine Kinase 121 units/L (30-135) 09/29/16 20:12 CK-MB (CK-2) < 1.0 ng/mL (0.0-4.0) 09/29/16 20:12 CK-MB (CK-2) Rel Index 0.8 (0-4) 09/29/16 20:12 Troponin T 0.204 ng/mL (0.00-0.029) H* 09/29/16 20:12 C-Reactive Protein 8.10 mg/dL (0.00-1.30) H 01/31/17 11:12 Total Protein 7.0 g/dL (6.3-8.2) 03/06/17 03:52 Albumin 1.5 g/dL (3.9-5) L 03/06/17 03:52 Albumin/Globulin Ratio 0.3 % 03/06/17 03:52 Prealbumin 0.110 g/L (0.200-0.400) L 12/29/16 05:15 Triglycerides 55 mg/dL (2-149) 02/06/17 04:45 Cholesterol 31 mg/dL (50-199) L 09/29/16 20:12 LDL Cholesterol Direct 4 mg/dL (50-130) L 09/29/16 20:12 HDL Cholesterol 3 mg/dL (40-59) L 09/29/16 20:12 Cholesterol/HDL Ratio 10.33 % 09/29/16 20:12 Angiotensin Convert Enz See scanned report 09/08/16 11:48 Renin 0.99 ng/mL/h (0.25-5.82) 10/07/16 10:56 Aldosterone <1 ng/dL () 10/07/16 10:56 Aldosterone/Renin Dir see below 10/07/16 10:56 Serotonin Release Assay See scanned report 09/29/16 13:35 25-OH Vitamin D Total 13 ng/mL (30-100) L 02/15/17 19:08 25-Hydroxy Vitamin D2 . 02/15/17 19:08 25-Hydroxy Vitamin D3 . 02/15/17 19:08 TSH 1.010 mlU/mL (0.270-4.200) 09/07/16 08:37 HCG, Qual Negative (Negative) 09/03/16 00:10 PTH Intact 10.88 pg/mL (15-65) L 02/15/17 19:08 Total Cortisol 18.2 mcg/dL () 02/02/17 20:09 Urine Color Yellow (Yellow) 11/05/16 13:09 Urine Turbidity Clear (Clear) 11/05/16 13:09 Urine pH 9.0 (5.0-7.0) H 11/05/16 13:09 Ur Specific [place] 1.011 (1.003-1.030) 11/05/16 13:09 Urine Protein 100 mg/dl mg/dL (Negative) 11/05/16 13:09 Urine Glucose (UA) Neg mg/dL (Negative) 11/05/16 13:09 Urine Ketones Neg mg/dL (Negative) 11/05/16 13:09 Urine Blood Neg (Negative) 11/05/16 13:09 Urine Nitrite Neg (Negative) 11/05/16 13:09 Urine Bilirubin Neg (Negative) 11/05/16 13:09 Urine Urobilinogen < 2.0 mg/dL (<2.0) 11/05/16 13:09 Ur Leukocyte Esterase Neg (Negative) 11/05/16 13:09 Urine WBC (Auto) 4.0 /HPF (0.0-6.0) 11/05/16 13:09 Urine RBC (Auto) 1.0 /HPF (0.0-6.0) 11/05/16 13:09 U Epithel Cells (Auto) 1.0 /HPF (0-13.0) 10/07/16 18:30 Urine Bacteria (Auto) 4+ /HPF (Negative) 11/05/16 13:09 Urine WBC Clumps 2+ /HPF 09/07/16 02:47 Hyaline Casts 4 /LPF 09/07/16 02:47 Urine Mucus Few /HPF 10/07/16 18:30 Urine Yeast (Budding) 3+ /HPF 10/07/16 18:30 Urine Eosinophils None seen (None Seen) 09/07/16 16:00 Urine Total Volume 950 11/12/16 10:18 Urine Creatinine 19.7 mg/dL (0.1-20.0) 11/12/16 10:18 Height (in) 65.0 inches 11/12/16 10:18 Weight (lb) 181.0 lbs 11/12/16 10:18 Creatinine Clearance 5 11/12/16 10:18 Urine Sodium 36 mEq/L 09/16/16 19:19 Urine Total Protein 16 mg/dL (5-11.8) H 09/16/16 19:19 Fluid Type Pleural 01/13/17 12:10 Fluid Color Yellow 01/13/17 12:10 Fluid Appearance Hazy 01/13/17 12:10 Fluid WBC 182 /mm3 01/13/17 12:10 Fluid RBC 41 /mm3 01/13/17 12:10 Fluid Seg Neutrophils 85.0 % 01/13/17 12:10 Fluid Lymphocytes 8.0 % 01/13/17 12:10 Fluid Reactive Lymphs 0 % 01/13/17 12:10 Fluid Monocytes 6.0 % 01/13/17 12:10 Fluid Eosinophils 1.0 % 01/13/17 12:10 Fluid Basophils 0 % 01/13/17 12:10 Fluid Total Protein 3.0 (15.0-45.0) L 01/13/17 12:10 Fluid LDH 1322 01/13/17 12:10 Fluid Comment Diff performed 01/13/17 12:10 Vancomycin Trough 2.3 ug/mL (5.0-20.0) L 09/21/16 13:00 Random Vancomycin 17.7 ug/mL (0-40.0) 03/06/17 03:52 Urine Opiates Screen Presumptive negative 09/03/16 15:11 Urine Methadone Screen Presumptive positive 09/03/16 15:11 Ur Barbiturates Screen Presumptive positive 09/03/16 15:11 Ur Phencyclidine Scrn Presumptive negative 09/03/16 15:11 Ur Amphetamines Screen Presumptive negative 09/03/16 15:11 U Benzodiazepines Scrn Presumptive negative 09/03/16 15:11 Urine Cocaine Screen Presumptive negative 09/03/16 15:11 U Marijuana (THC) Screen Presumptive positive 09/03/16 15:11 Drugs of Abuse Note Disclamer 09/03/16 15:11 Rheumatoid Factor 24 IU/ml (0-13) H 09/08/16 11:48 SAHIL Screen Negative (Negative) 09/07/16 09:20 Proteinase 3 (PR3) Ab <1.0 AI (<1.0) 09/07/16 09:20 Myeloperoxidase Ab <1.0 AI (<1.0) 09/07/16 09:20 Sjogren's Antibody <1.0 AI (<1.0) 09/08/16 15:35 Scl-70 Scleroderma Ab <1.0 AI (<1.0) 09/08/16 15:35 Centromere B Antibody <1.0 AI (<1.0) 09/08/16 12:02 Heparin-induced Plt Ab Negative (Negative) 09/29/16 13:35 UF Heparin High Dose 11 % Release 09/29/16 13:35 SUDHIR UFH Low Dose 0.1 6 % Release 09/29/16 13:35 SUDHIR UFH Low Dose 0.5 8 % Release 09/29/16 13:35 Cardiolipid IgG Ab <14 GPL (<=14) 09/12/16 09:59 Cardiolipid IgA Ab <11 APL (<=11) 09/12/16 09:59 Cardiolipid IgM Ab <12 MPL (<=12) 09/12/16 09:59 Complement C3 148 mg/dL (90-180) 09/07/16 09:20 Complement C4 58 mg/dL (16-47) H 09/07/16 09:20 RPR Nonreactive (Nonreactive) 09/08/16 11:48 Hepatitis A IgM Ab Non-reactive (NonReactive) 09/24/16 14:40 Hep Bs Antigen Non-reactive (Negative) 09/24/16 14:40 Hep B Core IgM Ab Non-reactive (NonReactive) 09/24/16 14:40 Hepatitis C Antibody Non-reactive (NonReactive) 09/24/16 14:40 HIV 1&2 Antibody Rapid Non react (Non React) 09/08/16 11:48 HIV P24 Antigen Non react (Non React) 09/08/16 11:48 Miscellaneous Test Flexitest 1 H 01/09/17 18:45 Blood Type A POSITIVE 02/12/17 10:25 Antibody Screen Negative 02/12/17 10:25 DELORIS Antibody Screen Negative 11/24/16 11:20 Crossmatch See Detail 02/12/17 10:25
[2017-03-06] MEDS ORDERED: INTRALIPID 20% 250 ML IV SCH (20:00)
[2017-03-06] MEDS ORDERED: TPN ADULT IV SCH (20:00)
[2017-03-06] MEDS: VANCOMYCIN VIAL 1,000 MG in NACL 0.9% 100 ML IV SCH (22:18)
[2017-03-06] MEDS: HEPARIN IV PRN (22:49)
[2017-03-07] MEDS: HumuLIN R SUB-Q SCH ×4 (02:15→20:06)
[2017-03-07] MEDS: CORDARONE 900 MG in D5W 482 ML IV SCH (02:15)
[2017-03-07] MEDS: LOPRESSOR IV SCH ×5 (02:21→21:35)
[2017-03-07] MEDS: REGLAN IV SCH ×2 (07:04→20:07)
[2017-03-07 07:08] LABS: Calcium 7.9 mg/dL (8.4-10.2)
[2017-03-07] MEDS: DUONEB *Not for PRN Use IH SCH ×3 (09:15→20:01)
--- NOTE | 2017-03-07 09:23 | Progress Note ---
Subjective Principal diagnosis: Acute resp failure on MVS; S/P Acute CVA; Acute Encephalopathy; JUANITA Interval history: Patient was seen today for follow-up on multiple renal related issues patient is currently resting in bed comfortably She is post hemodialysis yesterday with left femoral catheter Vitals labs intake output medications were reviewed Social history: Reviewed Allergies: Reviewed Family history: Reviewed Physical examination HEENT: Oral mucosa moist no pallor or icterus Neck: Supple no JVD Chest: Clear to auscultation anteriorly CVS: Regular rate and rhythm apical heart rate 113/m S1 and S2 heard Abdomen: Soft nontender no suprapubic masses no organomegaly appreciable Extremity: Dry skin less than 1+ peripheral edema Musculoskeletal: No joint effusion noted in knees and ankle Dermatology: No petechial rashes Psychiatry: No evidence of any agitation and aggression noted Assessment and plan End-stage renal disease patient has shown no recovery of renal function; currently has a Vas-Cath for hemodialysis in the left groin area Hyperkalemia: Resolved Chronic tachycardia Hypophosphatemia currently stable to better Enterococcus faecalis bacteremia noted February 27 follow-up culture preliminary negative so far, this was reported in 1 out of 2 cultures Secondary hyperparathyroidism: To monitor and follow phosphorus and PTH level phosphorus has been relatively low periodically will need replacement, current phosphorus 3.0 Status post acute CVA, bacteremia, Hypotension tachycardia: To monitor and follow Respiratory failure currently ventilator dependent status post tracheotomy History of gram-negative sepsis, candidemia, peritonitis Persistent vegetative state Atrial fibrillation, diabetes, hyperlipidemia, renovascular hypertension, sacral decubitus ulcer We'll continue to follow and make recommendation from renal standpoint Objective - Vital Signs Vital signs: Vital Signs - 12hr 03/06/17 03/06/17 03/06/17 21:30 21:45 22:00 Temperature Pulse Rate 61 115 H 105 H Pulse Rate [ From Monitor] Respiratory 21 23 Rate Blood Pressure 104/70 115/80 118/76 O2 Sat by Pulse 100 100 Oximetry O2 Sat by Pulse Oximetry [ Anterior Bilateral Throughout] O2 Sat by Pulse Oximetry [ Assessment] O2 Sat by Pulse Oximetry [ Throughout] 03/06/17 03/06/17 03/06/17 22:01 22:15 22:30 Temperature Pulse Rate 116 H 116 H 124 H Pulse Rate [ From Monitor] Respiratory 22 25 H Rate Blood Pressure 118/76 118/76 114/62 O2 Sat by Pulse Oximetry O2 Sat by Pulse Oximetry [ Anterior Bilateral Throughout] O2 Sat by Pulse Oximetry [ Assessment] O2 Sat by Pulse Oximetry [ Throughout] 03/06/17 03/06/17 03/06/17 22:31 22:45 22:53 Temperature 97.9 F Pulse Rate 124 H 114 H 114 H Pulse Rate [ From Monitor] Respiratory 19 22 22 Rate Blood Pressure 114/62 120/69 120/69 O2 Sat by Pulse 98 96 Oximetry O2 Sat by Pulse 100 Oximetry [ Anterior Bilateral Throughout] O2 Sat by Pulse Oximetry [ Assessment] O2 Sat by Pulse 100 Oximetry [ Throughout] 03/06/17 03/06/17 03/06/17 23:00 23:15 23:19 Temperature 97.7 F Pulse Rate 110 H 110 H Pulse Rate [ From Monitor] Respiratory 17 21 Rate Blood Pressure 121/70 121/70 O2 Sat by Pulse 98 Oximetry O2 Sat by Pulse Oximetry [ Anterior Bilateral Throughout] O2 Sat by Pulse Oximetry [ Assessment] O2 Sat by Pulse Oximetry [ Throughout] 03/06/17 03/06/17 03/06/17 23:20 23:30 23:31 Temperature Pulse Rate 109 H 110 H 109 H Pulse Rate [ From Monitor] Respiratory 18 19 21 Rate Blood Pressure 121/70 117/71 117/71 O2 Sat by Pulse 100 98 99 Oximetry O2 Sat by Pulse Oximetry [ Anterior Bilateral Throughout] O2 Sat by Pulse Oximetry [ Assessment] O2 Sat by Pulse Oximetry [ Throughout] 03/06/17 03/06/17 03/07/17 23:45 23:55 00:00 Temperature Pulse Rate 109 H 108 H 106 H Pulse Rate [ 100 H From Monitor] Respiratory 20 16 20 Rate Blood Pressure 125/77 125/77 111/75 O2 Sat by Pulse 100 100 97 Oximetry O2 Sat by Pulse Oximetry [ Anterior Bilateral Throughout] O2 Sat by Pulse Oximetry [ Assessment] O2 Sat by Pulse Oximetry [ Throughout] 03/07/17 03/07/17 03/07/17 00:05 00:15 00:31 Temperature Pulse Rate 114 H 106 H 102 H Pulse Rate [ From Monitor] Respiratory 20 16 Rate Blood Pressure 117/71 120/71 114/70 O2 Sat by Pulse 96 100 100 Oximetry O2 Sat by Pulse Oximetry [ Anterior Bilateral Throughout] O2 Sat by Pulse Oximetry [ Assessment] O2 Sat by Pulse Oximetry [ Throughout] 01/03/07/17 03/07/17 00:45 01:00 01:15 Temperature Pulse Rate 104 H 106 H 104 H Pulse Rate [ From Monitor] Respiratory 20 16 15 Rate Blood Pressure 117/75 117/75 121/73 O2 Sat by Pulse 100 100 100 Oximetry O2 Sat by Pulse Oximetry [ Anterior Bilateral Throughout] O2 Sat by Pulse Oximetry [ Assessment] O2 Sat by Pulse Oximetry [ Throughout] 03/07/17 03/07/17 03/07/17 01:30 01:45 02:00 Temperature Pulse Rate 108 H 108 H 109 H Pulse Rate [ From Monitor] Respiratory 13 19 14 Rate Blood Pressure 120/78 122/82 117/80 O2 Sat by Pulse 100 100 98 Oximetry O2 Sat by Pulse Oximetry [ Anterior Bilateral Throughout] O2 Sat by Pulse Oximetry [ Assessment] O2 Sat by Pulse Oximetry [ Throughout] 03/07/17 03/07/17 03/07/17 02:16 02:21 02:22 Temperature Pulse Rate 107 H 106 H 102 H Pulse Rate [ From Monitor] Respiratory 16 Rate Blood Pressure 133/71 133/71 133/71 O2 Sat by Pulse 84 Oximetry O2 Sat by Pulse Oximetry [ Anterior Bilateral Throughout] O2 Sat by Pulse Oximetry [ Assessment] O2 Sat by Pulse Oximetry [ Throughout] 03/07/17 03/07/17 03/07/17 02:30 02:46 03:00 Temperature Pulse Rate 98 H 92 H 94 H Pulse Rate [ From Monitor] Respiratory 14 17 17 Rate Blood Pressure 117/80 123/67 97/53 O2 Sat by Pulse 100 74 L Oximetry O2 Sat by Pulse Oximetry [ Anterior Bilateral Throughout] O2 Sat by Pulse Oximetry [ Assessment] O2 Sat by Pulse Oximetry [ Throughout] 03/07/17 03/07/17 03/07/17 03:15 03:20 03:24 Temperature 98.7 F Pulse Rate 98 H Pulse Rate [ From Monitor] Respiratory 19 Rate Blood Pressure 125/77 O2 Sat by Pulse 99 Oximetry O2 Sat by Pulse Oximetry [ Anterior Bilateral Throughout] O2 Sat by Pulse 99 Oximetry [ Assessment] O2 Sat by Pulse Oximetry [ Throughout] 03/07/17 03/07/17 03/07/17 03:31 03:46 04:00 Temperature Pulse Rate 104 H 101 H Pulse Rate [ 112 H From Monitor] Respiratory 21 22 Rate Blood Pressure 110/70 117/66 117/66 O2 Sat by Pulse 94 99 97 Oximetry O2 Sat by Pulse Oximetry [ Anterior Bilateral Throughout] O2 Sat by Pulse Oximetry [ Assessment] O2 Sat by Pulse Oximetry [ Throughout] 03/07/17 03/07/17 03/07/17 04:16 04:22 04:30 Temperature Pulse Rate 105 H 102 H 105 H Pulse Rate [ From Monitor] Respiratory 19 15 Rate Blood Pressure 101/53 117/66 106/51 O2 Sat by Pulse 100 96 100 Oximetry O2 Sat by Pulse Oximetry [ Anterior Bilateral Throughout] O2 Sat by Pulse Oximetry [ Assessment] O2 Sat by Pulse Oximetry [ Throughout] 03/07/17 03/07/17 03/07/17 04:46 05:00 05:16 Temperature Pulse Rate 106 H 104 H 106 H Pulse Rate [ From Monitor] Respiratory 18 15 20 Rate Blood Pressure 106/59 117/60 117/60 O2 Sat by Pulse 100 99 96 Oximetry O2 Sat by Pulse Oximetry [ Anterior Bilateral Throughout] O2 Sat by Pulse Oximetry [ Assessment] O2 Sat by Pulse Oximetry [ Throughout] 03/07/17 03/07/17 03/07/17 05:30 05:46 06:00 Temperature Pulse Rate 108 H 111 H 110 H Pulse Rate [ From Monitor] Respiratory 22 20 19 Rate Blood Pressure 103/49 101/45 101/45 O2 Sat by Pulse 96 Oximetry O2 Sat by Pulse Oximetry [ Anterior Bilateral Throughout] O2 Sat by Pulse Oximetry [ Assessment] O2 Sat by Pulse Oximetry [ Throughout] 03/07/17 03/07/17 03/07/17 06:15 06:30 06:46 Temperature Pulse Rate 111 H 113 H 113 H Pulse Rate [ From Monitor] Respiratory 16 21 20 Rate Blood Pressure 111/54 111/54 97/46 O2 Sat by Pulse 97 97 97 Oximetry O2 Sat by Pulse Oximetry [ Anterior Bilateral Throughout] O2 Sat by Pulse Oximetry [ Assessment] O2 Sat by Pulse Oximetry [ Throughout] 03/07/17 03/07/17 03/07/17 07:00 07:16 07:30 Temperature Pulse Rate 112 H 102 H 110 H Pulse Rate [ From Monitor] Respiratory 22 12 22 Rate Blood Pressure 97/46 95/42 92/49 O2 Sat by Pulse 98 98 98 Oximetry O2 Sat by Pulse Oximetry [ Anterior Bilateral Throughout] O2 Sat by Pulse Oximetry [ Assessment] O2 Sat by Pulse Oximetry [ Throughout] 03/07/17 08:00 Temperature 100.8 F H Pulse Rate Pulse Rate [ From Monitor] Respiratory Rate Blood Pressure O2 Sat by Pulse Oximetry O2 Sat by Pulse Oximetry [ Anterior Bilateral Throughout] O2 Sat by Pulse Oximetry [ Assessment] O2 Sat by Pulse Oximetry [ Throughout] - Lab 02/24/17 10:05 03/07/17 06:04 Most recent lab results ABG pH 7.450 pH Units (7.350-7.450) 12/05/16 Unknown ABG pCO2 29.6 mm Hg 12/05/16 Unknown ABG pO2 75.2 mm Hg (80.0-90.0) L 12/05/16 Unknown ABG HCO3 20.1 mmol/L (20.0-26.0) 12/05/16 Unknown ABG O2 Saturation 96.8 % (95.0-99.0) 12/05/16 Unknown Calcium 7.9 mg/dL (8.4-10.2) L 03/07/17 06:04 Phosphorus 2.90 mg/dL (2.5-4.5) D 03/07/17 06:04 Magnesium 1.80 mg/dL (1.7-2.3) 03/07/17 06:04 Urine Creatinine 19.7 mg/dL (0.1-20.0) 11/12/16 10:18 Urine Sodium 36 mEq/L 09/16/16 19:19 Urine Total Protein 16 mg/dL (5-11.8) H 09/16/16 19:19
[2017-03-07] MEDS: HEPARIN SUB-Q SCH ×2 (12:11→21:36)
[2017-03-07] MEDS: PEPCID IV SCH (12:15)
--- NOTE | 2017-03-07 13:48 | Progress Note ---
Assessment and Plan Assessment and plan: Patient is 46-year-old woman with a history of hypertension, diabetes, asthma, hyperlipidemia, chronic kidney disease and anxiety , who was brought in by family because, she couldn't get her words out, her face was also twisted, she was admitted for acute CVA and accelerated hypertension, she had a hx of poor adherence with her medications, and uncontrolled htn. Patient's SBP on admission was noted be greater than 260. TPA was started but this was discontinued after 5 minutes because her blood pressure became uncontrolled. The TPA was not initiated again because the patient was outside the TPA window. Gram positive septicemia case dw ID vasc cath removed, and now has temp HD cath placed on 03/06, on abx, TTE no vegetations, blood cx growing enterococus alonzo Status post cardiac arrest , 11/21/16 on Mechanical ventilation >96 hrs, > 6 months Vent Dependant Respiratory failure secondary to Anoxic Brain injury S/P Tracheostomy Severe Sepsis with septic shock; has completed multiple courses of abx Surgical wound infection/gram-negative sepsis/candidemia/peritonitis - On TPN ESRD - on HD Acute CVA with infarct - Neurology input appreciated - CT shows continued evolution of left MCA infarct with slight mass effect and edema, and there is no hemorrhage - PRINCE showed hyperdynamic with ef of 75%, neither clot nor septal defect seen - MRA Brain shows near complete occlusion of M2 and M3 of the left MCA - Repeat CT scan done on 09/11, shows stable findings - carotid doppler negative - Echo shows preserved systolic function but does show some left ventricular diastolic dysfunction - continue asa and statin Persistent vegetative state - This patient's needs placement at SNF - She was denied for LTACH Nosocomial acquired aspiration pneumonia/sepsis/UTI/PERITONITIS - Has completed multiple courses of abx A. fib with RVR -On amio drip, cannot change to PO due to persistent nausea and vomiting, NPO Diabetes type 2. -Continue sliding-scale regular insulin and Accu-Cheks. Hyperlipidemia. Continue statin Severe Protein calorie Malnutrition/Adult failure to thrive - TPN Anemia requiring multiple transfusions/acute blood loss -stable, keep hg above 7 Sacral decubitus ulcer - Status post debridement -Wound vac in place Disposition. Very poor prognosis. DNR - The high probability of a clinically significant, sudden or life threatening deterioration of the [neurologic, CV] system(s) required my full and direct attention, intervention and personal management. The aggregate critical care time was [35] minutes. This time is in addition to time spent performing reported procedures but includes the following: [x] Data Review and interpretation [x] Patient assessment and monitoring of vital signs [x] Documentation [x] Medication orders and management History Interval history: patient seen and examined, remains unresponsive on the ventilator. febrile overnight, no vomiting was tachypneic and tachycardic, overnight Hospitalist Physical - Physical exam Narrative exam: GEN: Ill appearing, trach, staring into space,, non purposeful movement NECK: SUPPLE, trach in place, ngt in place and to suction. CVS:Irregular Irregular with LUNGS/CHEST: NORMAL CHEST EXPANSION B, GOOD AIR ENTRY B, tachypena ABD: SOFT, no grimise on abdominal palpation, Ostomy bags at two side by side fistula site. GBS, NO REBOUND OR GUARDING, peg tube in place EXT/SKIN: NO SIGNIFICANT EDEMA BUT WITH UNSTAGEABLE SACRAL DECUB, wound vac inplace MSK: +spontaneous non purposeful movement NEURO: on a ventilator and unresponsive despite being off sedation PSY: Comatose, - Constitutional Vitals: Temp Pulse Resp BP Pulse Ox 100.8 F H 126 H 20 106/60 94 03/07/17 08:00 03/07/17 12:00 03/07/17 10:29 03/07/17 12:00 03/07/17 12:30 General appearance: Present: no acute distress, well-nourished Results - Labs CBC & Chem 7: 02/24/17 10:05 03/07/17 06:04 Labs: Laboratory Last Values WBC 10.2 K/mm3 (4.5-11.0) 02/24/17 10:05 RBC 2.95 M/mm3 (3.65-5.03) L 02/24/17 10:05 Hgb 8.4 gm/dl (10.1-14.3) L 02/24/17 10:05 Hct 25.7 % (30.3-42.9) L 02/24/17 10:05 MCV 87 fl (79-97) 02/24/17 10:05 MCH 28 pg (28-32) 02/24/17 10:05 MCHC 33 % (30-34) 02/24/17 10:05 RDW 20.8 % (13.2-15.2) H 02/24/17 10:05 Plt Count 333 K/mm3 (140-440) 02/24/17 10:05 Lymph % (Auto) 19.8 % (13.4-35.0) 02/24/17 10:05 [place] % (Auto) 7.2 % (0.0-7.3) 02/24/17 10:05 Eos % (Auto) 0.7 % (0.0-4.3) 02/24/17 10:05 Baso % (Auto) 0.5 % (0.0-1.8) 02/24/17 10:05 Lymph # 2.0 K/mm3 (1.2-5.4) 02/24/17 10:05 [place] # 0.7 K/mm3 (0.0-0.8) 02/24/17 10:05 Eos # 0.1 K/mm3 (0.0-0.4) 02/24/17 10:05 Baso # 0.0 K/mm3 (0.0-0.1) 02/24/17 10:05 Add Manual Diff Complete 12/19/16 05:02 Total Counted 100 12/19/16 05:02 Seg Neutrophils % 71.8 % (40.0-70.0) H 02/24/17 10:05 Seg Neuts % (Manual) 64.0 % (40.0-70.0) 12/19/16 05:02 Band Neutrophils % 15.0 % 12/19/16 05:02 Lymphocytes % (Manual) 13.0 % (13.4-35.0) L 12/19/16 05:02 Reactive Lymphs % (Man) 0 % 12/19/16 05:02 Monocytes % (Manual) 7.0 % (0.0-7.3) 12/19/16 05:02 Eosinophils % (Manual) 0 % (0.0-4.3) 12/19/16 05:02 Basophils % (Manual) 1.0 % (0.0-1.8) 12/19/16 05:02 Metamyelocytes % 0 % 12/19/16 05:02 Myelocytes % 0 % 12/19/16 05:02 Promyelocytes % 0 % 12/19/16 05:02 Blast Cells % 0 % 12/19/16 05:02 Nucleated RBC % 1.0 % (0.0-0.9) H 12/19/16 05:02 Seg Neutrophils # 7.3 K/mm3 (1.8-7.7) 02/24/17 10:05 Seg Neutrophils # Man 12.9 K/mm3 (1.8-7.7) H 12/19/16 05:02 Band Neutrophils # 3.0 K/mm3 12/19/16 05:02 Lymphocytes # (Manual) 2.6 K/mm3 (1.2-5.4) 12/19/16 05:02 Abs React Lymphs (Man) 0.0 K/mm3 12/19/16 05:02 Monocytes # (Manual) 1.4 K/mm3 (0.0-0.8) H 12/19/16 05:02 Eosinophils # (Manual) 0.0 K/mm3 (0.0-0.4) 12/19/16 05:02 Basophils # (Manual) 0.2 K/mm3 (0.0-0.1) H 12/19/16 05:02 Metamyelocytes # 0.0 K/mm3 12/19/16 05:02 Myelocytes # 0.0 K/mm3 12/19/16 05:02 Promyelocytes # 0.0 K/mm3 12/19/16 05:02 Blast Cells # 0.0 K/mm3 12/19/16 05:02 Pathologist Review 09/13/16 04:00 WBC Morphology Not Reportable 12/19/16 05:02 Hypersegmented Neuts Not Reportable 12/19/16 05:02 Hyposegmented Neuts Not Reportable 12/19/16 05:02 Hypogranular Neuts Not Reportable 12/19/16 05:02 Smudge Cells Not Reportable 12/19/16 05:02 Toxic Granulation Not Reportable 12/19/16 05:02 Toxic Vacuolation Not Reportable 12/19/16 05:02 Dohle Bodies Not Reportable 12/19/16 05:02 Pelger-Huet Anomaly Not Reportable 12/19/16 05:02 Jasmina Rods Not Reportable 12/19/16 05:02 Platelet Estimate Consistent w auto 12/19/16 05:02 Clumped Platelets Not Reportable 12/19/16 05:02 Plt Clumps, EDTA Not Reportable 12/19/16 05:02 Large Platelets Not Reportable 12/19/16 05:02 Giant Platelets Not Reportable 12/19/16 05:02 Platelet Satelliting Not Reportable 12/19/16 05:02 Plt Morphology Comment Not Reportable 12/19/16 05:02 RBC Morphology Not Reportable 12/19/16 05:02 Dimorphic RBCs Not Reportable 12/19/16 05:02 Polychromasia Not Reportable 12/19/16 05:02 Hypochromasia Not Reportable 12/19/16 05:02 Poikilocytosis Not Reportable 12/19/16 05:02 Anisocytosis Not Reportable 12/19/16 05:02 Microcytosis Not Reportable 12/19/16 05:02 Macrocytosis Not Reportable 12/19/16 05:02 Spherocytes Not Reportable 12/19/16 05:02 Pappenheimer Bodies Not Reportable 12/19/16 05:02 Sickle Cells Not Reportable 12/19/16 05:02 Target Cells Few 12/19/16 05:02 Tear Drop Cells Not Reportable 12/19/16 05:02 Ovalocytes Not Reportable 12/19/16 05:02 Stomatocytes Rare 12/03/16 04:00 Helmet Cells Not Reportable 12/19/16 05:02 [place] Bodies Not Reportable 12/19/16 05:02 [place] Rings Not Reportable 12/19/16 05:02 Chuck Cells Not Reportable 12/19/16 05:02 Bite Cells Not Reportable 12/19/16 05:02 Crenated Cell Not Reportable 12/19/16 05:02 Elliptocytes Not Reportable 12/19/16 05:02 Acanthocytes (Spur) Not Reportable 12/19/16 05:02 Rouleaux Not Reportable 12/19/16 05:02 Hemoglobin C Crystals Not Reportable 12/19/16 05:02 Schistocytes Not Reportable 12/19/16 05:02 Malaria parasites Not Reportable 12/19/16 05:02 ESR > 140.0 mm/Hr (0-20) 09/08/16 11:48 Jun Bodies Not Reportable 12/19/16 05:02 Hem Pathologist Commnt No 12/19/16 05:02 PT 15.4 Sec. (12.2-14.9) H 01/13/17 15:50 INR 1.16 (0.87-1.13) H 01/13/17 15:50 APTT 33.0 Sec. (24.2-36.6) 10/09/16 03:45 Thrombin Time 16.8 Sec. (15.1-19.6) 09/03/16 00:10 Fibrinogen 750 mg/dl (211-480) H 09/08/16 11:48 Lupus Anticoagulant see below 09/12/16 09:59 LA PTT Baseline See scanned report 09/12/16 09:59 dRVVT Confirm Interp Positive (Negative) H 09/12/16 09:59 dRVVT Screen 50:50 See scanned report 09/12/16 09:59 dRVVT Mix Interpret See scanned report 09/12/16 09:59 Protein C Antigen 122 % (70-140) 09/08/16 15:35 Free Protein S 97 % normal (50-147) 09/08/16 15:35 Total Protein S 109 % (70-140) 09/08/16 15:35 Antithrombin III Ag 100 % (80-120) 09/08/16 15:35 Heparin Anti-Xa, Unfract Negative (Negative) 09/29/16 13:35 Factor V Activity 182 % (65-150) H 09/08/16 15:35 POC ABG pH 7.518 (7.35-7.45) H 03/03/17 20: ABG pH 7.450 pH Units (7.350-7.450) 12/05/16 Unknown POC ABG pCO2 28.8 (35-45) L 03/03/17 20:17 ABG pCO2 29.6 mm Hg 12/05/16 Unknown POC ABG pO2 61 (80-105) L 03/03/17 20: ABG pO2 75.2 mm Hg (80.0-90.0) L 12/05/16 Unknown POC ABG HCO3 23.4 03/03/17 20: ABG HCO3 20.1 mmol/L (20.0-26.0) 12/05/16 Unknown POC ABG Total CO2 24 03/03/17 20:17 POC ABG O2 Sat 94 03/03/17 20:17 ABG O2 Saturation 96.8 % (95.0-99.0) 12/05/16 Unknown ABG O2 Content 9.9 (0.0-44) 12/05/16 Unknown POC ABG Base Excess 0 03/03/17 20:17 ABG Base Excess -3.4 mmol/L (-2.0-3.0) L 12/05/16 Unknown ABG Hemoglobin 7.4 gm/dl (12.0-16.0) L 12/05/16 Unknown ABG Carboxyhemoglobin 1.8 % (0.0-5.0) 12/05/16 Unknown ABG Methemoglobin 0.6 % (0.0-1.5) 12/05/16 Unknown Oxyhemoglobin 94.5 % (95.0-99.0) L 12/05/16 Unknown FiO2 40 % 03/03/17 20:17 Sodium 139 mmol/L (137-145) 03/07/17 06:04 Potassium 4.0 mmol/L (3.6-5.0) D 03/07/17 06:04 Chloride 97.5 mmol/L (98-107) L 03/07/17 06:04 Carbon Dioxide 23 mmol/L (22-30) 03/07/17 06:04 Anion Gap 23 mmol/L 03/07/17 06:04 BUN 28 mg/dL (7-17) H 03/07/17 06:04 Creatinine 1.5 mg/dL (0.7-1.2) H 03/07/17 06:04 Estimated GFR 45 ml/min 03/07/17 06:04 BUN/Creatinine Ratio 19 % 03/07/17 06:04 Glucose 90 mg/dL (65-100) 03/07/17 06:04 POC Glucose 104 (70-105) 03/07/17 05:10 Osmolality 351 Mosm/kg 09/16/16 11:47 Lactic Acid 2.30 mmol/L (0.7-2.0) H* 01/09/17 08:22 Calcium 7.9 mg/dL (8.4-10.2) L 03/07/17 06:04 Ionized Calcium 6.0 mg/dL (4.8-5.6) H 02/15/17 19:08 Phosphorus 2.90 mg/dL (2.5-4.5) D 03/07/17 06:04 Magnesium 1.80 mg/dL (1.7-2.3) 03/07/17 06:04 Total Bilirubin 0.50 mg/dL (0.1-1.2) 03/06/17 03:52 Direct Bilirubin 0.2 mg/dL (0-0.2) 01/28/17 04:00 Indirect Bilirubin 0.3 mg/dL 01/28/17 04:00 AST 18 units/L (5-40) 03/06/17 03:52 ALT 18 units/L (7-56) 03/06/17 03:52 Alkaline Phosphatase 165 units/L (35-129) H 03/06/17 03:52 Ammonia 27.0 umol/L (25-60) 09/07/16 08:37 Lactate Dehydrogenase 170 units/L (91-180) 01/13/17 15:50 Total Creatine Kinase 121 units/L (30-135) 09/29/16 20:12 CK-MB (CK-2) < 1.0 ng/mL (0.0-4.0) 09/29/16 20:12 CK-MB (CK-2) Rel Index 0.8 (0-4) 09/29/16 20:12 Troponin T 0.204 ng/mL (0.00-0.029) H* 09/29/16 20:12 C-Reactive Protein 8.10 mg/dL (0.00-1.30) H 01/31/17 11:12 Total Protein 7.0 g/dL (6.3-8.2) 03/06/17 03:52 Albumin 1.5 g/dL (3.9-5) L 03/06/17 03:52 Albumin/Globulin Ratio 0.3 % 03/06/17 03:52 Prealbumin 0.110 g/L (0.200-0.400) L 12/29/16 05:15 Triglycerides 55 mg/dL (2-149) 02/06/17 04:45 Cholesterol 31 mg/dL (50-199) L 09/29/16 20:12 LDL Cholesterol Direct 4 mg/dL (50-130) L 09/29/16 20:12 HDL Cholesterol 3 mg/dL (40-59) L 09/29/16 20:12 Cholesterol/HDL Ratio 10.33 % 09/29/16 20:12 Angiotensin Convert Enz See scanned report 09/08/16 11:48 Renin 0.99 ng/mL/h (0.25-5.82) 10/07/16 10:56 Aldosterone <1 ng/dL () 10/07/16 10:56 Aldosterone/Renin Dir see below 10/07/16 10:56 Serotonin Release Assay See scanned report 09/29/16 13:35 25-OH Vitamin D Total 13 ng/mL (30-100) L 02/15/17 19:08 25-Hydroxy Vitamin D2 . 02/15/17 19:08 25-Hydroxy Vitamin D3 . 02/15/17 19:08 TSH 1.010 mlU/mL (0.270-4.200) 09/07/16 08:37 HCG, Qual Negative (Negative) 09/03/16 00:10 PTH Intact 10.88 pg/mL (15-65) L 02/15/17 19:08 Total Cortisol 18.2 mcg/dL () 02/02/17 20:09 Urine Color Yellow (Yellow) 11/05/16 13:09 Urine Turbidity Clear (Clear) 11/05/16 13:09 Urine pH 9.0 (5.0-7.0) H 11/05/16 13:09 Ur Specific [place] 1.011 (1.003-1.030) 11/05/16 13:09 Urine Protein 100 mg/dl mg/dL (Negative) 11/05/16 13:09 Urine Glucose (UA) Neg mg/dL (Negative) 11/05/16 13:09 Urine Ketones Neg mg/dL (Negative) 11/05/16 13:09 Urine Blood Neg (Negative) 11/05/16 13:09 Urine Nitrite Neg (Negative) 11/05/16 13:09 Urine Bilirubin Neg (Negative) 11/05/16 13:09 Urine Urobilinogen < 2.0 mg/dL (<2.0) 11/05/16 13:09 Ur Leukocyte Esterase Neg (Negative) 11/05/16 13:09 Urine WBC (Auto) 4.0 /HPF (0.0-6.0) 11/05/16 13:09 Urine RBC (Auto) 1.0 /HPF (0.0-6.0) 11/05/16 13:09 U Epithel Cells (Auto) 1.0 /HPF (0-13.0) 10/07/16 18:30 Urine Bacteria (Auto) 4+ /HPF (Negative) 11/05/16 13:09 Urine WBC Clumps 2+ /HPF 09/07/16 02:47 Hyaline Casts 4 /LPF 09/07/16 02:47 Urine Mucus Few /HPF 10/07/16 18:30 Urine Yeast (Budding) 3+ /HPF 10/07/16 18:30 Urine Eosinophils None seen (None Seen) 09/07/16 16:00 Urine Total Volume 950 11/12/16 10:18 Urine Creatinine 19.7 mg/dL (0.1-20.0) 11/12/16 10:18 Height (in) 65.0 inches 11/12/16 10:18 Weight (lb) 181.0 lbs 11/12/16 10:18 Creatinine Clearance 5 11/12/16 10:18 Urine Sodium 36 mEq/L 09/16/16 19:19 Urine Total Protein 16 mg/dL (5-11.8) H 09/16/16 19:19 Fluid Type Pleural 01/13/17 12:10 Fluid Color Yellow 01/13/17 12:10 Fluid Appearance Hazy 01/13/17 12:10 Fluid WBC 182 /mm3 01/13/17 12:10 Fluid RBC 41 /mm3 01/13/17 12:10 Fluid Seg Neutrophils 85.0 % 01/13/17 12:10 Fluid Lymphocytes 8.0 % 01/13/17 12:10 Fluid Reactive Lymphs 0 % 01/13/17 12:10 Fluid Monocytes 6.0 % 01/13/17 12:10 Fluid Eosinophils 1.0 % 01/13/17 12:10 Fluid Basophils 0 % 01/13/17 12:10 Fluid Total Protein 3.0 (15.0-45.0) L 01/13/17 12:10 Fluid LDH 1322 01/13/17 12:10 Fluid Comment Diff performed 01/13/17 12:10 Vancomycin Trough 2.3 ug/mL (5.0-20.0) L 09/21/16 13:00 Random Vancomycin 17.7 ug/mL (0-40.0) 03/06/17 03:52 Urine Opiates Screen Presumptive negative 09/03/16 15:11 Urine Methadone Screen Presumptive positive 09/03/16 15:11 Ur Barbiturates Screen Presumptive positive 09/03/16 15:11 Ur Phencyclidine Scrn Presumptive negative 09/03/16 15:11 Ur Amphetamines Screen Presumptive negative 09/03/16 15:11 U Benzodiazepines Scrn Presumptive negative 09/03/16 15:11 Urine Cocaine Screen Presumptive negative 09/03/16 15:11 U Marijuana (THC) Screen Presumptive positive 09/03/16 15:11 Drugs of Abuse Note Disclamer 09/03/16 15:11 Rheumatoid Factor 24 IU/ml (0-13) H 09/08/16 11:48 SAHIL Screen Negative (Negative) 09/07/16 09:20 Proteinase 3 (PR3) Ab <1.0 AI (<1.0) 09/07/16 09:20 Myeloperoxidase Ab <1.0 AI (<1.0) 09/07/16 09:20 Sjogren's Antibody <1.0 AI (<1.0) 09/08/16 15:35 Scl-70 Scleroderma Ab <1.0 AI (<1.0) 09/08/16 15:35 Centromere B Antibody <1.0 AI (<1.0) 09/08/16 12:02 Heparin-induced Plt Ab Negative (Negative) 09/29/16 13:35 UF Heparin High Dose 11 % Release 09/29/16 13:35 SUDHIR UFH Low Dose 0.1 6 % Release 09/29/16 13:35 SUDHIR UFH Low Dose 0.5 8 % Release 09/29/16 13:35 Cardiolipid IgG Ab <14 GPL (<=14) 09/12/16 09:59 Cardiolipid IgA Ab <11 APL (<=11) 09/12/16 09:59 Cardiolipid IgM Ab <12 MPL (<=12) 09/12/16 09:59 Complement C3 148 mg/dL (90-180) 09/07/16 09:20 Complement C4 58 mg/dL (16-47) H 09/07/16 09:20 RPR Nonreactive (Nonreactive) 09/08/16 11:48 Hepatitis A IgM Ab Non-reactive (NonReactive) 09/24/16 14:40 Hep Bs Antigen Non-reactive (Negative) 09/24/16 14:40 Hep B Core IgM Ab Non-reactive (NonReactive) 09/24/16 14:40 Hepatitis C Antibody Non-reactive (NonReactive) 09/24/16 14:40 HIV 1&2 Antibody Rapid Non react (Non React) 09/08/16 11:48 HIV P24 Antigen Non react (Non React) 09/08/16 11:48 Miscellaneous Test Flexitest 1 H 01/09/17 18:45 Blood Type A POSITIVE 02/12/17 10:25 Antibody Screen Negative 02/12/17 10:25 DELORIS Antibody Screen Negative 11/24/16 11:20 Crossmatch See Detail 02/12/17 10:25
--- NOTE | 2017-03-07 18:26 | Progress Note ---
Assessment and Plan Patient is 46-year-old woman with a history of hypertension, diabetes mellitus, asthma, hyperlipidemia, chronic kidney disease and anxiety, who was brought in by family because she couldn't get her words out, her face was also twisted, she was admitted for acute CVA and accelerated hypertension, she had a hx of poor adherence with her medications, and uncontrolled hypertension. Patient's SBP on admission was noted be greater than 260. TPA was started but this it was discontinued after 5 minutes because her blood pressure became uncontrolled. The TPA was not initiated again because the patient was outside the TPA window. Patient has had a prolonged hospital stay complicated with recurrent severe sepsis. Patient with most recent event also status post cardiac arrest on 11/21/16 , with CPR and ROSC. Acute on chronic Hypoxemic Respiratory Failure Sepsis -recurrent s/p tracheostomy Hypertension Atrial Fibrillation with RVR Acute encephalopathy s/p CVA Oropharyngeal dysphagia Enterococcal bacteremia Sacral Decubitus Ulcer- unstageable s/p debridement Anemia Obesity JUANITA now on hemodialysis Enteric Fistula - VAP bundle addressed - continue NGT to LIS - continue wound care/wound vac per WCT - Vasopressor if MAP falls < 65mmHg - keep on with daily PSV trials and / or T-piece as tolerated - continue TPN administration (continue TPN; NPO except for meds) - continue airway clearance and secretion management - continue to wean FiO2 for sats > 94% - continue to monitor hemodynamics closely - continue HD/UF per nephrology - continue to follow electrolytes and correct as necessary - continue GI & VTE prophylaxis Transfuse 1 unit PRBC as needed to keep HgH>7g/dL .....she remains critically ill on life sustaining interventions including MVS and at risk for further deterioration including ...jail prognosis remains poor - Patient Problems (1) Acute respiratory failure with hypoxia Current Visit: Yes Status: Acute (2) Acute blood loss anemia Current Visit: Yes Status: Resolved (3) Acute CVA (cerebrovascular accident) Current Visit: Yes Status: Acute (4) Chronic renal insufficiency Current Visit: Yes Status: Acute (5) Uncontrolled hypertension Current Visit: Yes Status: Acute (6) Leukocytosis (leucocytosis) Current Visit: Yes Status: Acute Qualifiers: Leukocytosis type: leukemoid reaction Qualified Code(s): D72.823 - Leukemoid reaction (7) Dislodged gastrostomy tube Current Visit: Yes Status: Acute (8) Fungemia Current Visit: Yes Status: Resolved (9) Cardiopulmonary arrest with successful resuscitation Current Visit: Yes Status: Acute Subjective Date of service: 03/07/17 Principal diagnosis: Acute resp failure on MVS; S/P Acute CVA; Acute Encephalopathy; JUANITA Interval history: Patient is seen today for: Acute resp failure on MVS; S/P Acute CVA; Acute Encephalopathy; JUANITA Seen and examined at bedside; 24hour events reviewed; nursing and respiratory care staff consulted; no adverse overnight events reported to me; she remains critically ill Patient was made DNR on 02/12/2017 by family, see hospitalist documentation. No new events Vitals, labs, medications, chart reviewed. Discussed with RT and RN Daily SBTs as tolerated. Tolerated ATP for 6 hours yesterday. Discussed interdisciplinary rounds Objective - Exam Narrative Exam: General appearance: somnolent non communicative, on the vent via trach in mild resp distress, no following commands Eyes: anicteric sclera, moist conjunctivae; PERRLA HENT: Atraumatic; oropharynx limited; Normal external ears. +NGT with greenish secretion Neck: +trach in place; supple, no thyromegaly or lymphadenopathy Lungs: brit coarse BS CV: tachy Abdomen: Soft, non-tender, +old PEG site no drainage. +ileostomy. Right sided Surgical site x 2 with ostomy bag draining small amount yellowish secretion Extremities: +peripheral edema Skin: sacral area wounds - per wound care, wound vac in place Psych: somnolent . Neuro: alert non verbal on the vent. Lines: PICC / gutierrez Vital Signs - 12hr 03/07/17 03/07/17 03/07/17 06:30 06:46 07:00 Temperature Pulse Rate 113 H 113 H 112 H Pulse Rate [ Anterior Bilateral Throughout] Pulse Rate [ Throughout] Respiratory 21 20 22 Rate Respiratory Rate [Anterior Bilateral Throughout] Respiratory Rate [ Throughout] Blood Pressure 111/54 97/46 97/46 O2 Sat by Pulse 97 97 98 Oximetry O2 Sat by Pulse Oximetry [ Assessment] 03/07/17 03/07/17 03/07/17 07:16 07:30 07:46 Temperature Pulse Rate 102 H 110 H 113 H Pulse Rate [ Anterior Bilateral Throughout] Pulse Rate [ Throughout] Respiratory 12 22 21 Rate Respiratory Rate [Anterior Bilateral Throughout] Respiratory Rate [ Throughout] Blood Pressure 95/42 92/49 117/39 O2 Sat by Pulse 98 98 98 Oximetry O2 Sat by Pulse Oximetry [ Assessment] 03/07/17 03/07/17 03/07/17 08:00 08:16 08:30 Temperature 100.8 F H Pulse Rate 112 H 114 H 116 H Pulse Rate [ Anterior Bilateral Throughout] Pulse Rate [ Throughout] Respiratory 21 17 23 Rate Respiratory Rate [Anterior Bilateral Throughout] Respiratory Rate [ Throughout] Blood Pressure 117/39 95/45 105/54 O2 Sat by Pulse Oximetry O2 Sat by Pulse Oximetry [ Assessment] 03/07/17 03/07/17 03/07/17 08:45 09:00 09:16 Temperature Pulse Rate 112 H 113 H 114 H Pulse Rate [ Anterior Bilateral Throughout] Pulse Rate [ Throughout] Respiratory 14 20 15 Rate Respiratory Rate [Anterior Bilateral Throughout] Respiratory Rate [ Throughout] Blood Pressure 98/50 100/46 100/46 O2 Sat by Pulse 98 95 Oximetry O2 Sat by Pulse Oximetry [ Assessment] 03/07/17 03/07/17 03/07/17 09:30 09:46 10:00 Temperature Pulse Rate 116 H 115 H 119 H Pulse Rate [ 86 Anterior Bilateral Throughout] Pulse Rate [ Throughout] Respiratory 23 17 19 Rate Respiratory 20 Rate [Anterior Bilateral Throughout] Respiratory Rate [ Throughout] Blood Pressure 100/45 99/53 99/53 O2 Sat by Pulse 94 96 92 Oximetry O2 Sat by Pulse Oximetry [ Assessment] 03/07/17 03/07/17 03/07/17 10:16 10:29 10:30 Temperature Pulse Rate 119 H 119 H Pulse Rate [ 88 Anterior Bilateral Throughout] Pulse Rate [ Throughout] Respiratory 24 25 H Rate Respiratory 20 Rate [Anterior Bilateral Throughout] Respiratory Rate [ Throughout] Blood Pressure 99/51 96/43 O2 Sat by Pulse 90 Oximetry O2 Sat by Pulse Oximetry [ Assessment] 03/07/17 03/07/17 03/07/17 10:46 11:00 11:15 Temperature Pulse Rate 118 H 119 H 119 H Pulse Rate [ Anterior Bilateral Throughout] Pulse Rate [ Throughout] Respiratory 20 18 18 Rate Respiratory Rate [Anterior Bilateral Throughout] Respiratory Rate [ Throughout] Blood Pressure 100/44 100/44 100/42 O2 Sat by Pulse 90 90 89 Oximetry O2 Sat by Pulse Oximetry [ Assessment] 03/07/17 03/07/17 03/07/17 11:30 11:46 12:00 Temperature 100.5 F H Pulse Rate 121 H 119 H 125 H Pulse Rate [ Anterior Bilateral Throughout] Pulse Rate [ Throughout] Respiratory 15 19 22 Rate Respiratory Rate [Anterior Bilateral Throughout] Respiratory Rate [ Throughout] Blood Pressure 100/42 89/40 106/60 O2 Sat by Pulse 93 93 89 Oximetry O2 Sat by Pulse Oximetry [ Assessment] 03/07/17 03/07/17 03/07/17 12:16 12:30 12:46 Temperature Pulse Rate 125 H 123 H 121 H Pulse Rate [ Anterior Bilateral Throughout] Pulse Rate [ Throughout] Respiratory 21 22 24 Rate Respiratory Rate [Anterior Bilateral Throughout] Respiratory Rate [ Throughout] Blood Pressure 119/59 119/59 105/54 O2 Sat by Pulse 91 88 Oximetry O2 Sat by Pulse 94 Oximetry [ Assessment] 03/07/17 03/07/17 03/07/17 13:00 13:16 13:30 Temperature Pulse Rate 122 H 120 H 120 H Pulse Rate [ Anterior Bilateral Throughout] Pulse Rate [ Throughout] Respiratory 21 20 22 Rate Respiratory Rate [Anterior Bilateral Throughout] Respiratory Rate [ Throughout] Blood Pressure 105/54 109/55 109/55 O2 Sat by Pulse 90 83 L 94 Oximetry O2 Sat by Pulse Oximetry [ Assessment] 03/07/17 03/07/17 03/07/17 13:46 14:00 14:16 Temperature Pulse Rate 127 H 126 H 126 H Pulse Rate [ Anterior Bilateral Throughout] Pulse Rate [ Throughout] Respiratory 21 22 23 Rate Respiratory Rate [Anterior Bilateral Throughout] Respiratory Rate [ Throughout] Blood Pressure 111/57 111/57 129/27 O2 Sat by Pulse 96 96 98 Oximetry O2 Sat by Pulse Oximetry [ Assessment] 03/07/17 03/07/17 03/07/17 14:30 14:46 15:00 Temperature Pulse Rate 124 H 125 H 122 H Pulse Rate [ Anterior Bilateral Throughout] Pulse Rate [ Throughout] Respiratory 16 18 18 Rate Respiratory Rate [Anterior Bilateral Throughout] Respiratory Rate [ Throughout] Blood Pressure 129/27 109/59 109/59 O2 Sat by Pulse 96 95 97 Oximetry O2 Sat by Pulse Oximetry [ Assessment] 03/07/17 03/07/17 03/07/17 15:35 15:48 15:49 Temperature Pulse Rate 122 H Pulse Rate [ Anterior Bilateral Throughout] Pulse Rate [ 125 H 122 H Throughout] Respiratory Rate Respiratory Rate [Anterior Bilateral Throughout] Respiratory 20 18 Rate [ Throughout] Blood Pressure O2 Sat by Pulse 94 Oximetry O2 Sat by Pulse Oximetry [ Assessment] 03/07/17 03/07/17 16:00 17:10 Temperature Pulse Rate 117 H 120 H Pulse Rate [ Anterior Bilateral Throughout] Pulse Rate [ Throughout] Respiratory 16 Rate Respiratory Rate [Anterior Bilateral Throughout] Respiratory Rate [ Throughout] Blood Pressure 105/61 97/48 O2 Sat by Pulse 96 Oximetry O2 Sat by Pulse Oximetry [ Assessment] Constitutional: appears uncomfortable, other (not tracking) Eyes: non-icteric, other (tracheostomy tube in midline of neck) ENT: oropharynx moist, oropharyngeal exudate pre, other (midline tracheostomy tube) Neck: supple, no lymphadenopathy, no JVD, other (no thyromegaly) Effort: mildly labored Ascultation: Bilateral: clear, diminished breath sounds, rales, rhonchi (and referred upper airway sounds) Percussion: Right: dull (base), Bilateral: not dull Cardiovascular: regular rate and rhythm, other (no rubs / murmurs) Gastrointestinal: hypoactive bowel sounds, soft, non-tender, non-distended, other (RLQ & LUQ stomas with colostomy bags) Integumentary: decubitus ulcer (sacral; stage 4 s/p surgical debridement), other (no rash; no cellulitis; poor turgor) Extremities: no cyanosis, pulses normal, no ischemia or petechiae, edema (1+ bilaterally) Neurologic: pupils equal and round, unable to assess, other (encephalopathic) Psychiatric: other (unable to assess) CBC and BMP: 02/24/17 10:05 03/07/17 06:04 ABG, PT/INR, D-dimer: ABG POC ABG pH 7.518 (7.35-7.45) H 03/03/17 20:17 ABG pH 7.450 pH Units (7.350-7.450) 12/05/16 Unknown POC ABG pCO2 28.8 (35-45) L 03/03/17 20:17 ABG pCO2 29.6 mm Hg 12/05/16 Unknown POC ABG pO2 61 (80-105) L 03/03/17 20:17 ABG pO2 75.2 mm Hg (80.0-90.0) L 12/05/16 Unknown POC ABG HCO3 23.4 03/03/17 20:17 POC ABG Total CO2 24 03/03/17 20:17 POC ABG O2 Sat 94 03/03/17 20:17 ABG O2 Saturation 96.8 % (95.0-99.0) 12/05/16 Unknown PT/INR, D-dimer PT 15.4 Sec. (12.2-14.9) H 01/13/17 15:50 INR 1.16 (0.87-1.13) H 01/13/17 15:50 Abnormal lab findings: Abnormal Labs 09/03/16 09/03/16 09/03/16 00:03 00:10 00:10 WBC 13.9 H RBC 5.95 H Hgb Hct 44.0 H MCV 74 L MCH 22 L MCHC RDW 17.5 H Plt Count Lymph % (Auto) Harper % (Auto) Lymph # Harper # Baso # Seg Neutrophils % Seg Neuts % (Manual) Lymphocytes % (Manual) 54.0 H Monocytes % (Manual) Eosinophils % (Manual) Basophils % (Manual) Nucleated RBC % Seg Neutrophils # Seg Neutrophils # Man Lymphocytes # (Manual) 7.5 H Monocytes # (Manual) Eosinophils # (Manual) Basophils # (Manual) PT INR Fibrinogen dRVVT Confirm Interp Factor V Activity POC ABG pH POC ABG pCO2 POC ABG pO2 ABG pO2 ABG HCO3 ABG Base Excess ABG Hemoglobin Oxyhemoglobin Sodium Potassium 2.8 L* Chloride Carbon Dioxide 21 L BUN Creatinine 1.7 H Glucose 159 H POC Glucose 177 H Lactic Acid Calcium Ionized Calcium Phosphorus Magnesium Direct Bilirubin AST ALT Alkaline Phosphatase Lactate Dehydrogenase Troponin T C-Reactive Protein Total Protein Albumin Prealbumin Triglycerides Cholesterol LDL Cholesterol Direct HDL Cholesterol 25-OH Vitamin D Total PTH Intact Urine pH Urine WBC (Auto) Urine Creatinine Urine Total Protein Fluid Total Protein Vancomycin Trough Rheumatoid Factor Complement C4 Miscellaneous Test Crossmatch 09/03/16 09/03/16 09/03/16 12:12 15:07 16:20 WBC RBC Hgb Hct MCV MCH MCHC RDW Plt Count Lymph % (Auto) Harper % (Auto) Lymph # Harper # Baso # Seg Neutrophils % Seg Neuts % (Manual) Lymphocytes % (Manual) Monocytes % (Manual) Eosinophils % (Manual) Basophils % (Manual) Nucleated RBC % Seg Neutrophils # Seg Neutrophils # Man Lymphocytes # (Manual) Monocytes # (Manual) Eosinophils # (Manual) Basophils # (Manual) PT INR Fibrinogen dRVVT Confirm Interp Factor V Activity POC ABG pH 7.452 H POC ABG pCO2 POC ABG pO2 ABG pO2 ABG HCO3 ABG Base Excess ABG Hemoglobin Oxyhemoglobin Sodium Potassium Chloride Carbon Dioxide BUN Creatinine Glucose POC Glucose 178 H Lactic Acid Calcium Ionized Calcium Phosphorus 2.20 L Magnesium 1.60 L Direct Bilirubin AST ALT Alkaline Phosphatase Lactate Dehydrogenase Troponin T C-Reactive Protein Total Protein Albumin Prealbumin Triglycerides Cholesterol LDL Cholesterol Direct HDL Cholesterol 25-OH Vitamin D Total PTH Intact Urine pH Urine WBC (Auto) Urine Creatinine Urine Total Protein Fluid Total Protein Vancomycin Trough Rheumatoid Factor Complement C4 Miscellaneous Test Crossmatch 09/03/16 09/03/16 09/03/16 17:57 17:58 23:50 WBC RBC Hgb Hct MCV MCH MCHC RDW Plt Count Lymph % (Auto) Harper % (Auto) Lymph # Harper # Baso # Seg Neutrophils % Seg Neuts % (Manual) Lymphocytes % (Manual) Monocytes % (Manual) Eosinophils % (Manual) Basophils % (Manual) Nucleated RBC % Seg Neutrophils # Seg Neutrophils # Man Lymphocytes # (Manual) Monocytes # (Manual) Eosinophils # (Manual) Basophils # (Manual) PT INR Fibrinogen dRVVT Confirm Interp Factor V Activity POC ABG pH POC ABG pCO2 POC ABG pO2 ABG pO2 ABG HCO3 ABG Base Excess ABG Hemoglobin Oxyhemoglobin Sodium Potassium Chloride Carbon Dioxide BUN Creatinine Glucose POC Glucose 162 H 145 H Lactic Acid Calcium Ionized Calcium Phosphorus 2.30 L Magnesium Direct Bilirubin AST ALT Alkaline Phosphatase Lactate Dehydrogenase Troponin T C-Reactive Protein Total Protein Albumin Prealbumin Triglycerides Cholesterol LDL Cholesterol Direct HDL Cholesterol 25-OH Vitamin D Total PTH Intact Urine pH Urine WBC (Auto) Urine Creatinine Urine Total Protein Fluid Total Protein Vancomycin Trough Rheumatoid Factor Complement C4 Miscellaneous Test Crossmatch 09/04/16 09/04/16 09/04/16 03:31 03:31 05:42 WBC RBC Hgb 9.7 L D Hct MCV 72 L MCH 23 L MCHC RDW 17.5 H Plt Count Lymph % (Auto) 11.1 L Harper % (Auto) Lymph # Harper # Baso # Seg Neutrophils % 84.3 H Seg Neuts % (Manual) Lymphocytes % (Manual) Monocytes % (Manual) Eosinophils % (Manual) Basophils % (Manual) Nucleated RBC % Seg Neutrophils # 8.9 H Seg Neutrophils # Man Lymphocytes # (Manual) Monocytes # (Manual) Eosinophils # (Manual) Basophils # (Manual) PT INR Fibrinogen dRVVT Confirm Interp Factor V Activity POC ABG pH POC ABG pCO2 POC ABG pO2 ABG pO2 ABG HCO3 ABG Base Excess ABG Hemoglobin Oxyhemoglobin Sodium 135 L Potassium 2.9 L* Chloride 97.2 L Carbon Dioxide 19 L BUN Creatinine 1.7 H Glucose 170 H POC Glucose 152 H Lactic Acid Calcium Ionized Calcium Phosphorus Magnesium Direct Bilirubin AST ALT Alkaline Phosphatase Lactate Dehydrogenase Troponin T C-Reactive Protein Total Protein Albumin Prealbumin Triglycerides 160 H Cholesterol LDL Cholesterol Direct HDL Cholesterol 31 L 25-OH Vitamin D Total PTH Intact Urine pH Urine WBC (Auto) Urine Creatinine Urine Total Protein Fluid Total Protein Vancomycin Trough Rheumatoid Factor Complement C4 Miscellaneous Test Crossmatch 09/04/16 09/04/16 09/04/16 11:34 17:46 23:29 WBC RBC Hgb Hct MCV MCH MCHC RDW Plt Count Lymph % (Auto) Harper % (Auto) Lymph # Harper # Baso # Seg Neutrophils % Seg Neuts % (Manual) Lymphocytes % (Manual) Monocytes % (Manual) Eosinophils % (Manual) Basophils % (Manual) Nucleated RBC % Seg Neutrophils # Seg Neutrophils # Man Lymphocytes # (Manual) Monocytes # (Manual) Eosinophils # (Manual) Basophils # (Manual) PT INR Fibrinogen dRVVT Confirm Interp Factor V Activity POC ABG pH POC ABG pCO2 POC ABG pO2 ABG pO2 ABG HCO3 ABG Base Excess ABG Hemoglobin Oxyhemoglobin Sodium Potassium Chloride Carbon Dioxide BUN Creatinine Glucose POC Glucose 165 H 210 H 139 H Lactic Acid Calcium Ionized Calcium Phosphorus Magnesium Direct Bilirubin AST ALT Alkaline Phosphatase Lactate Dehydrogenase Troponin T C-Reactive Protein Total Protein Albumin Prealbumin Triglycerides Cholesterol LDL Cholesterol Direct HDL Cholesterol 25-OH Vitamin D Total PTH Intact Urine pH Urine WBC (Auto) Urine Creatinine Urine Total Protein Fluid Total Protein Vancomycin Trough Rheumatoid Factor Complement C4 Miscellaneous Test Crossmatch 09/05/16 09/05/16 09/05/16 04:05 04:05 05:38 WBC RBC Hgb Hct MCV 76 L D MCH 23 L MCHC RDW 17.8 H Plt Count Lymph % (Auto) Harper % (Auto) Lymph # Harper # Baso # Seg Neutrophils % Seg Neuts % (Manual) Lymphocytes % (Manual) Monocytes % (Manual) Eosinophils % (Manual) Basophils % (Manual) Nucleated RBC % Seg Neutrophils # Seg Neutrophils # Man Lymphocytes # (Manual) Monocytes # (Manual) Eosinophils # (Manual) Basophils # (Manual) PT INR Fibrinogen dRVVT Confirm Interp Factor V Activity POC ABG pH POC ABG pCO2 POC ABG pO2 ABG pO2 ABG HCO3 ABG Base Excess ABG Hemoglobin Oxyhemoglobin Sodium 134 L Potassium Chloride Carbon Dioxide 18 L BUN Creatinine 1.8 H Glucose 192 H POC Glucose 175 H Lactic Acid Calcium Ionized Calcium Phosphorus Magnesium Direct Bilirubin AST ALT Alkaline Phosphatase Lactate Dehydrogenase Troponin T C-Reactive Protein Total Protein Albumin Prealbumin Triglycerides Cholesterol LDL Cholesterol Direct HDL Cholesterol 25-OH Vitamin D Total PTH Intact Urine pH Urine WBC (Auto) Urine Creatinine Urine Total Protein Fluid Total Protein Vancomycin Trough Rheumatoid Factor Complement C4 Miscellaneous Test Crossmatch 09/05/16 09/05/16 09/05/16 11:38 17:48 23:22 WBC RBC Hgb Hct MCV MCH MCHC RDW Plt Count Lymph % (Auto) Harper % (Auto) Lymph # Harper # Baso # Seg Neutrophils % Seg Neuts % (Manual) Lymphocytes % (Manual) Monocytes % (Manual) Eosinophils % (Manual) Basophils % (Manual) Nucleated RBC % Seg Neutrophils # Seg Neutrophils # Man Lymphocytes # (Manual) Monocytes # (Manual) Eosinophils # (Manual) Basophils # (Manual) PT INR Fibrinogen dRVVT Confirm Interp Factor V Activity POC ABG pH POC ABG pCO2 POC ABG pO2 ABG pO2 ABG HCO3 ABG Base Excess ABG Hemoglobin Oxyhemoglobin Sodium Potassium Chloride Carbon Dioxide BUN Creatinine Glucose POC Glucose 164 H 186 H 195 H Lactic Acid Calcium Ionized Calcium Phosphorus Magnesium Direct Bilirubin AST ALT Alkaline Phosphatase Lactate Dehydrogenase Troponin T C-Reactive Protein Total Protein Albumin Prealbumin Triglycerides Cholesterol LDL Cholesterol Direct HDL Cholesterol 25-OH Vitamin D Total PTH Intact Urine pH Urine WBC (Auto) Urine Creatinine Urine Total Protein Fluid Total Protein Vancomycin Trough Rheumatoid Factor Complement C4 Miscellaneous Test Crossmatch 09/06/16 09/06/16 09/06/16 04:12 05:59 07:32 WBC RBC Hgb Hct MCV MCH MCHC RDW Plt Count Lymph % (Auto) Harper % (Auto) Lymph # Harper # Baso # Seg Neutrophils % Seg Neuts % (Manual) Lymphocytes % (Manual) Monocytes % (Manual) Eosinophils % (Manual) Basophils % (Manual) Nucleated RBC % Seg Neutrophils # Seg Neutrophils # Man Lymphocytes # (Manual) Monocytes # (Manual) Eosinophils # (Manual) Basophils # (Manual) PT INR Fibrinogen dRVVT Confirm Interp Factor V Activity POC ABG pH 7.514 H POC ABG pCO2 29.1 L POC ABG pO2 72 L ABG pO2 ABG HCO3 ABG Base Excess ABG Hemoglobin Oxyhemoglobin Sodium 133 L Potassium 3.4 L Chloride 94.9 L Carbon Dioxide 19 L BUN 30 H Creatinine 2.1 H Glucose 139 H POC Glucose 146 H Lactic Acid Calcium Ionized Calcium Phosphorus Magnesium Direct Bilirubin AST ALT Alkaline Phosphatase Lactate Dehydrogenase Troponin T C-Reactive Protein Total Protein Albumin Prealbumin Triglycerides Cholesterol LDL Cholesterol Direct HDL Cholesterol 25-OH Vitamin D Total PTH Intact Urine pH Urine WBC (Auto) Urine Creatinine Urine Total Protein Fluid Total Protein Vancomycin Trough Rheumatoid Factor Complement C4 Miscellaneous Test Crossmatch 09/06/16 09/06/16 09/06/16 11:57 17:58 19:02 WBC RBC Hgb Hct MCV MCH MCHC RDW Plt Count Lymph % (Auto) Harper % (Auto) Lymph # Harper # Baso # Seg Neutrophils % Seg Neuts % (Manual) Lymphocytes % (Manual) Monocytes % (Manual) Eosinophils % (Manual) Basophils % (Manual) Nucleated RBC % Seg Neutrophils # Seg Neutrophils # Man Lymphocytes # (Manual) Monocytes # (Manual) Eosinophils # (Manual) Basophils # (Manual) PT INR Fibrinogen dRVVT Confirm Interp Factor V Activity POC ABG pH 7.465 H POC ABG pCO2 32.0 L POC ABG pO2 ABG pO2 ABG HCO3 ABG Base Excess ABG Hemoglobin Oxyhemoglobin Sodium Potassium Chloride Carbon Dioxide BUN Creatinine Glucose POC Glucose 165 H 160 H Lactic Acid Calcium Ionized Calcium Phosphorus Magnesium Direct Bilirubin AST ALT Alkaline Phosphatase Lactate Dehydrogenase Troponin T C-Reactive Protein Total Protein Albumin Prealbumin Triglycerides Cholesterol LDL Cholesterol Direct HDL Cholesterol 25-OH Vitamin D Total PTH Intact Urine pH Urine WBC (Auto) Urine Creatinine Urine Total Protein Fluid Total Protein Vancomycin Trough Rheumatoid Factor Complement C4 Miscellaneous Test Crossmatch 09/06/16 09/07/16 09/07/16 23:45 02:47 02:47 WBC RBC Hgb Hct MCV MCH MCHC RDW Plt Count Lymph % (Auto) Harper % (Auto) Lymph # Harper # Baso # Seg Neutrophils % Seg Neuts % (Manual) Lymphocytes % (Manual) Monocytes % (Manual) Eosinophils % (Manual) Basophils % (Manual) Nucleated RBC % Seg Neutrophils # Seg Neutrophils # Man Lymphocytes # (Manual) Monocytes # (Manual) Eosinophils # (Manual) Basophils # (Manual) PT INR Fibrinogen dRVVT Confirm Interp Factor V Activity POC ABG pH POC ABG pCO2 POC ABG pO2 ABG pO2 ABG HCO3 ABG Base Excess ABG Hemoglobin Oxyhemoglobin Sodium Potassium Chloride Carbon Dioxide BUN Creatinine Glucose POC Glucose 204 H Lactic Acid Calcium Ionized Calcium Phosphorus Magnesium Direct Bilirubin AST ALT Alkaline Phosphatase Lactate Dehydrogenase Troponin T C-Reactive Protein Total Protein Albumin Prealbumin Triglycerides Cholesterol LDL Cholesterol Direct HDL Cholesterol 25-OH Vitamin D Total PTH Intact Urine pH Urine WBC (Auto) 68.0 H Urine Creatinine 106.1 H Urine Total Protein Fluid Total Protein Vancomycin Trough Rheumatoid Factor Complement C4 Miscellaneous Test Crossmatch 09/07/16 09/07/16 09/07/16 04:50 06:19 06:39 WBC RBC Hgb Hct MCV MCH MCHC RDW Plt Count Lymph % (Auto) Harper % (Auto) Lymph # Harper # Baso # Seg Neutrophils % Seg Neuts % (Manual) Lymphocytes % (Manual) Monocytes % (Manual) Eosinophils % (Manual) Basophils % (Manual) Nucleated RBC % Seg Neutrophils # Seg Neutrophils # Man Lymphocytes # (Manual) Monocytes # (Manual) Eosinophils # (Manual) Basophils # (Manual) PT INR Fibrinogen dRVVT Confirm Interp Factor V Activity POC ABG pH 7.457 H POC ABG pCO2 32.1 L POC ABG pO2 76 L ABG pO2 ABG HCO3 ABG Base Excess ABG Hemoglobin Oxyhemoglobin Sodium 132 L Potassium Chloride 94.7 L Carbon Dioxide BUN 53 H Creatinine 2.9 H Glucose 151 H POC Glucose 149 H Lactic Acid Calcium Ionized Calcium Phosphorus Magnesium Direct Bilirubin AST ALT Alkaline Phosphatase Lactate Dehydrogenase Troponin T C-Reactive Protein Total Protein Albumin Prealbumin Triglycerides Cholesterol LDL Cholesterol Direct HDL Cholesterol 25-OH Vitamin D Total PTH Intact Urine pH Urine WBC (Auto) Urine Creatinine Urine Total Protein Fluid Total Protein Vancomycin Trough Rheumatoid Factor Complement C4 Miscellaneous Test Crossmatch 09/07/16 09/07/16 09/07/16 09:20 11:43 11:43 WBC 19.4 H RBC Hgb 8.3 L Hct 26.4 L D MCV 72 L D MCH 22 L MCHC RDW 17.9 H Plt Count Lymph % (Auto) 8.5 L Harper % (Auto) Lymph # Harper # 1.0 H Baso # Seg Neutrophils % 85.8 H Seg Neuts % (Manual) Lymphocytes % (Manual) Monocytes % (Manual) Eosinophils % (Manual) Basophils % (Manual) Nucleated RBC % Seg Neutrophils # 16.6 H Seg Neutrophils # Man Lymphocytes # (Manual) Monocytes # (Manual) Eosinophils # (Manual) Basophils # (Manual) PT INR Fibrinogen dRVVT Confirm Interp Factor V Activity POC ABG pH POC ABG pCO2 POC ABG pO2 ABG pO2 ABG HCO3 ABG Base Excess ABG Hemoglobin Oxyhemoglobin Sodium 134 L Potassium Chloride 97.2 L Carbon Dioxide 20 L BUN 58 H Creatinine 2.9 H Glucose 147 H POC Glucose Lactic Acid Calcium Ionized Calcium Phosphorus 2.40 L Magnesium 2.40 H Direct Bilirubin AST ALT Alkaline Phosphatase Lactate Dehydrogenase Troponin T C-Reactive Protein Total Protein 5.8 L Albumin 2.2 L Prealbumin Triglycerides Cholesterol LDL Cholesterol Direct HDL Cholesterol 25-OH Vitamin D Total PTH Intact Urine pH Urine WBC (Auto) Urine Creatinine Urine Total Protein Fluid Total Protein Vancomycin Trough Rheumatoid Factor Complement C4 58 H Miscellaneous Test Crossmatch 09/07/16 09/07/16 09/07/16 11:50 16:00 17:31 WBC RBC Hgb Hct MCV MCH MCHC RDW Plt Count Lymph % (Auto) Harper % (Auto) Lymph # Harper # Baso # Seg Neutrophils % Seg Neuts % (Manual) Lymphocytes % (Manual) Monocytes % (Manual) Eosinophils % (Manual) Basophils % (Manual) Nucleated RBC % Seg Neutrophils # Seg Neutrophils # Man Lymphocytes # (Manual) Monocytes # (Manual) Eosinophils # (Manual) Basophils # (Manual) PT INR Fibrinogen dRVVT Confirm Interp Factor V Activity POC ABG pH POC ABG pCO2 POC ABG pO2 158 H ABG pO2 ABG HCO3 ABG Base Excess ABG Hemoglobin Oxyhemoglobin Sodium Potassium Chloride Carbon Dioxide BUN Creatinine Glucose POC Glucose 175 H Lactic Acid Calcium Ionized Calcium Phosphorus Magnesium Direct Bilirubin AST ALT Alkaline Phosphatase Lactate Dehydrogenase Troponin T C-Reactive Protein Total Protein Albumin Prealbumin Triglycerides Cholesterol LDL Cholesterol Direct HDL Cholesterol 25-OH Vitamin D Total PTH Intact Urine pH Urine WBC (Auto) Urine Creatinine 66.3 H Urine Total Protein Fluid Total Protein Vancomycin Trough Rheumatoid Factor Complement C4 Miscellaneous Test Crossmatch 09/07/16 09/08/16 09/08/16 23:50 05:46 06:18 WBC 17.8 H RBC 3.58 L Hgb 8.1 L Hct 25.5 L MCV 71 L MCH 23 L MCHC RDW 18.4 H Plt Count Lymph % (Auto) Harper % (Auto) Lymph # Harper # Baso # Seg Neutrophils % Seg Neuts % (Manual) 92.0 H Lymphocytes % (Manual) 6.0 L Monocytes % (Manual) Eosinophils % (Manual) Basophils % (Manual) Nucleated RBC % Seg Neutrophils # Seg Neutrophils # Man 16.4 H Lymphocytes # (Manual) 1.1 L Monocytes # (Manual) Eosinophils # (Manual) Basophils # (Manual) PT INR Fibrinogen dRVVT Confirm Interp Factor V Activity POC ABG pH POC ABG pCO2 34.3 L POC ABG pO2 71 L ABG pO2 ABG HCO3 ABG Base Excess ABG Hemoglobin Oxyhemoglobin Sodium Potassium Chloride Carbon Dioxide BUN Creatinine Glucose POC Glucose 216 H Lactic Acid Calcium Ionized Calcium Phosphorus Magnesium Direct Bilirubin AST ALT Alkaline Phosphatase Lactate Dehydrogenase Troponin T C-Reactive Protein Total Protein Albumin Prealbumin Triglycerides Cholesterol LDL Cholesterol Direct HDL Cholesterol 25-OH Vitamin D Total PTH Intact Urine pH Urine WBC (Auto) Urine Creatinine Urine Total Protein Fluid Total Protein Vancomycin Trough Rheumatoid Factor Complement C4 Miscellaneous Test Crossmatch 09/08/16 09/08/16 09/08/16 06:18 06:51 10:55 WBC RBC Hgb Hct MCV MCH MCHC RDW Plt Count Lymph % (Auto) Harper % (Auto) Lymph # Harper # Baso # Seg Neutrophils % Seg Neuts % (Manual) Lymphocytes % (Manual) Monocytes % (Manual) Eosinophils % (Manual) Basophils % (Manual) Nucleated RBC % Seg Neutrophils # Seg Neutrophils # Man Lymphocytes # (Manual) Monocytes # (Manual) Eosinophils # (Manual) Basophils # (Manual) PT INR Fibrinogen dRVVT Confirm Interp Factor V Activity POC ABG pH POC ABG pCO2 POC ABG pO2 ABG pO2 ABG HCO3 ABG Base Excess ABG Hemoglobin Oxyhemoglobin Sodium 133 L Potassium Chloride 96.9 L Carbon Dioxide 20 L BUN 63 H Creatinine 2.7 H Glucose 195 H POC Glucose 204 H 169 H Lactic Acid Calcium Ionized Calcium Phosphorus Magnesium Direct Bilirubin AST ALT Alkaline Phosphatase Lactate Dehydrogenase Troponin T C-Reactive Protein Total Protein Albumin Prealbumin Triglycerides Cholesterol LDL Cholesterol Direct HDL Cholesterol 25-OH Vitamin D Total PTH Intact Urine pH Urine WBC (Auto) Urine Creatinine Urine Total Protein Fluid Total Protein Vancomycin Trough Rheumatoid Factor Complement C4 Miscellaneous Test Crossmatch 09/08/16 09/08/1617 11:48 11:48 11:48 WBC RBC Hgb Hct MCV MCH MCHC RDW Plt Count Lymph % (Auto) Harper % (Auto) Lymph # Harper # Baso # Seg Neutrophils % Seg Neuts % (Manual) Lymphocytes % (Manual) Monocytes % (Manual) Eosinophils % (Manual) Basophils % (Manual) Nucleated RBC % Seg Neutrophils # Seg Neutrophils # Man Lymphocytes # (Manual) Monocytes # (Manual) Eosinophils # (Manual) Basophils # (Manual) PT INR Fibrinogen 750 H dRVVT Confirm Interp Factor V Activity POC ABG pH POC ABG pCO2 POC ABG pO2 ABG pO2 ABG HCO3 ABG Base Excess ABG Hemoglobin Oxyhemoglobin Sodium Potassium Chloride Carbon Dioxide BUN Creatinine Glucose POC Glucose Lactic Acid Calcium Ionized Calcium Phosphorus Magnesium Direct Bilirubin AST ALT Alkaline Phosphatase Lactate Dehydrogenase Troponin T C-Reactive Protein 15.70 H Total Protein Albumin Prealbumin Triglycerides Cholesterol LDL Cholesterol Direct HDL Cholesterol 25-OH Vitamin D Total PTH Intact Urine pH Urine WBC (Auto) Urine Creatinine Urine Total Protein Fluid Total Protein Vancomycin Trough Rheumatoid Factor 24 H Complement C4 Miscellaneous Test Crossmatch 09/08/16 09/08/16 09/09/16 15:35 18:25 00:24 WBC RBC Hgb Hct MCV MCH MCHC RDW Plt Count Lymph % (Auto) Harper % (Auto) Lymph # Harper # Baso # Seg Neutrophils % Seg Neuts % (Manual) Lymphocytes % (Manual) Monocytes % (Manual) Eosinophils % (Manual) Basophils % (Manual) Nucleated RBC % Seg Neutrophils # Seg Neutrophils # Man Lymphocytes # (Manual) Monocytes # (Manual) Eosinophils # (Manual) Basophils # (Manual) PT INR Fibrinogen dRVVT Confirm Interp Factor V Activity 182 H POC ABG pH POC ABG pCO2 POC ABG pO2 ABG pO2 ABG HCO3 ABG Base Excess ABG Hemoglobin Oxyhemoglobin Sodium Potassium Chloride Carbon Dioxide BUN Creatinine Glucose POC Glucose 184 H 216 H Lactic Acid Calcium Ionized Calcium Phosphorus Magnesium Direct Bilirubin AST ALT Alkaline Phosphatase Lactate Dehydrogenase Troponin T C-Reactive Protein Total Protein Albumin Prealbumin Triglycerides Cholesterol LDL Cholesterol Direct HDL Cholesterol 25-OH Vitamin D Total PTH Intact Urine pH Urine WBC (Auto) Urine Creatinine Urine Total Protein Fluid Total Protein Vancomycin Trough Rheumatoid Factor Complement C4 Miscellaneous Test Crossmatch 09/09/16 09/09/16 09/09/16 03:00 03:00 04:04 WBC 27.9 H RBC Hgb 8.7 L Hct 28.1 L MCV 72 L MCH 22 L MCHC RDW 18.4 H Plt Count 485 H Lymph % (Auto) Harper % (Auto) Lymph # Harper # Baso # Seg Neutrophils % Seg Neuts % (Manual) 77.0 H Lymphocytes % (Manual) 9.0 L Monocytes % (Manual) Eosinophils % (Manual) Basophils % (Manual) Nucleated RBC % Seg Neutrophils # Seg Neutrophils # Man 21.5 H Lymphocytes # (Manual) Monocytes # (Manual) 2.0 H Eosinophils # (Manual) Basophils # (Manual) PT INR Fibrinogen dRVVT Confirm Interp Factor V Activity POC ABG pH POC ABG pCO2 POC ABG pO2 121 H ABG pO2 ABG HCO3 ABG Base Excess ABG Hemoglobin Oxyhemoglobin Sodium 135 L Potassium Chloride 96.3 L Carbon Dioxide 21 L BUN 83 H Creatinine 3.0 H Glucose 135 H POC Glucose Lactic Acid Calcium Ionized Calcium Phosphorus Magnesium Direct Bilirubin AST ALT Alkaline Phosphatase Lactate Dehydrogenase Troponin T C-Reactive Protein Total Protein Albumin Prealbumin Triglycerides Cholesterol LDL Cholesterol Direct HDL Cholesterol 25-OH Vitamin D Total PTH Intact Urine pH Urine WBC (Auto) Urine Creatinine Urine Total Protein Fluid Total Protein Vancomycin Trough Rheumatoid Factor Complement C4 Miscellaneous Test Crossmatch 09/09/16 09/09/16 09/09/16 05:41 11:55 14:13 WBC RBC Hgb Hct MCV MCH MCHC RDW Plt Count Lymph % (Auto) Harper % (Auto) Lymph # Harper # Baso # Seg Neutrophils % Seg Neuts % (Manual) Lymphocytes % (Manual) Monocytes % (Manual) Eosinophils % (Manual) Basophils % (Manual) Nucleated RBC % Seg Neutrophils # Seg Neutrophils # Man Lymphocytes # (Manual) Monocytes # (Manual) Eosinophils # (Manual) Basophils # (Manual) PT INR Fibrinogen dRVVT Confirm Interp Factor V Activity POC ABG pH POC ABG pCO2 POC ABG pO2 ABG pO2 ABG HCO3 ABG Base Excess ABG Hemoglobin Oxyhemoglobin Sodium Potassium Chloride Carbon Dioxide BUN Creatinine Glucose POC Glucose 155 H 186 H Lactic Acid Calcium Ionized Calcium Phosphorus Magnesium Direct Bilirubin AST ALT Alkaline Phosphatase Lactate Dehydrogenase Troponin T C-Reactive Protein Total Protein Albumin Prealbumin Triglycerides Cholesterol LDL Cholesterol Direct HDL Cholesterol 25-OH Vitamin D Total PTH Intact Urine pH Urine WBC (Auto) 25.0 H Urine Creatinine Urine Total Protein Fluid Total Protein Vancomycin Trough Rheumatoid Factor Complement C4 Miscellaneous Test Crossmatch 09/09/16 09/09/16 09/10/16 17:33 23:13 05:09 WBC RBC Hgb Hct MCV MCH MCHC RDW Plt Count Lymph % (Auto) Harper % (Auto) Lymph # Harper # Baso # Seg Neutrophils % Seg Neuts % (Manual) Lymphocytes % (Manual) Monocytes % (Manual) Eosinophils % (Manual) Basophils % (Manual) Nucleated RBC % Seg Neutrophils # Seg Neutrophils # Man Lymphocytes # (Manual) Monocytes # (Manual) Eosinophils # (Manual) Basophils # (Manual) PT INR Fibrinogen dRVVT Confirm Interp Factor V Activity POC ABG pH POC ABG pCO2 POC ABG pO2 74 L ABG pO2 ABG HCO3 ABG Base Excess ABG Hemoglobin Oxyhemoglobin Sodium Potassium Chloride Carbon Dioxide BUN Creatinine Glucose POC Glucose 211 H 215 H Lactic Acid Calcium Ionized Calcium Phosphorus Magnesium Direct Bilirubin AST ALT Alkaline Phosphatase Lactate Dehydrogenase Troponin T C-Reactive Protein Total Protein Albumin Prealbumin Triglycerides Cholesterol LDL Cholesterol Direct HDL Cholesterol 25-OH Vitamin D Total PTH Intact Urine pH Urine WBC (Auto) Urine Creatinine Urine Total Protein Fluid Total Protein Vancomycin Trough Rheumatoid Factor Complement C4 Miscellaneous Test Crossmatch 09/10/16 09/10/16 09/10/16 05:17 05:17 11:31 WBC 15.8 H RBC 3.25 L Hgb 7.3 L Hct 22.9 L MCV 71 L MCH 23 L MCHC RDW 18.4 H Plt Count Lymph % (Auto) Harper % (Auto) Lymph # Harper # Baso # Seg Neutrophils % Seg Neuts % (Manual) 91.0 H Lymphocytes % (Manual) 4.0 L Monocytes % (Manual) Eosinophils % (Manual) Basophils % (Manual) Nucleated RBC % Seg Neutrophils # Seg Neutrophils # Man 14.4 H Lymphocytes # (Manual) 0.6 L Monocytes # (Manual) Eosinophils # (Manual) Basophils # (Manual) PT INR Fibrinogen dRVVT Confirm Interp Factor V Activity POC ABG pH POC ABG pCO2 POC ABG pO2 ABG pO2 ABG HCO3 ABG Base Excess ABG Hemoglobin Oxyhemoglobin Sodium Potassium Chloride Carbon Dioxide 21 L BUN 93 H Creatinine 2.9 H Glucose 146 H POC Glucose 188 H Lactic Acid Calcium 8.1 L Ionized Calcium Phosphorus Magnesium Direct Bilirubin AST ALT Alkaline Phosphatase Lactate Dehydrogenase Troponin T C-Reactive Protein Total Protein Albumin Prealbumin Triglycerides Cholesterol LDL Cholesterol Direct HDL Cholesterol 25-OH Vitamin D Total PTH Intact Urine pH Urine WBC (Auto) Urine Creatinine Urine Total Protein Fluid Total Protein Vancomycin Trough Rheumatoid Factor Complement C4 Miscellaneous Test Crossmatch 09/10/16 09/10/16 09/10/16 13:17 17:20 23:32 WBC RBC Hgb Hct MCV MCH MCHC RDW Plt Count Lymph % (Auto) Harper % (Auto) Lymph # Harper # Baso # Seg Neutrophils % Seg Neuts % (Manual) Lymphocytes % (Manual) Monocytes % (Manual) Eosinophils % (Manual) Basophils % (Manual) Nucleated RBC % Seg Neutrophils # Seg Neutrophils # Man Lymphocytes # (Manual) Monocytes # (Manual) Eosinophils # (Manual) Basophils # (Manual) PT INR Fibrinogen dRVVT Confirm Interp Factor V Activity POC ABG pH POC ABG pCO2 POC ABG pO2 ABG pO2 ABG HCO3 ABG Base Excess ABG Hemoglobin Oxyhemoglobin Sodium Potassium Chloride Carbon Dioxide BUN Creatinine Glucose POC Glucose 199 H 186 H Lactic Acid Calcium Ionized Calcium Phosphorus Magnesium Direct Bilirubin AST ALT Alkaline Phosphatase Lactate Dehydrogenase Troponin T C-Reactive Protein Total Protein Albumin Prealbumin Triglycerides Cholesterol LDL Cholesterol Direct HDL Cholesterol 25-OH Vitamin D Total PTH Intact Urine pH Urine WBC (Auto) Urine Creatinine Urine Total Protein Fluid Total Protein Vancomycin Trough Rheumatoid Factor Complement C4 Miscellaneous Test Crossmatch See Detail 09/11/16 09/11/16 09/11/16 05:10 05:10 05:17 WBC 28.4 H RBC Hgb 9.2 L Hct 29.3 L D MCV 73 L MCH 23 L MCHC RDW 18.9 H Plt Count 452 H Lymph % (Auto) Harper % (Auto) Lymph # Harper # Baso # Seg Neutrophils % Seg Neuts % (Manual) 89.5 H Lymphocytes % (Manual) 2.0 L Monocytes % (Manual) Eosinophils % (Manual) Basophils % (Manual) Nucleated RBC % Seg Neutrophils # Seg Neutrophils # Man 25.4 H Lymphocytes # (Manual) 0.6 L Monocytes # (Manual) 1.3 H Eosinophils # (Manual) Basophils # (Manual) PT INR Fibrinogen dRVVT Confirm Interp Factor V Activity POC ABG pH POC ABG pCO2 POC ABG pO2 ABG pO2 ABG HCO3 ABG Base Excess ABG Hemoglobin Oxyhemoglobin Sodium 136 L Potassium Chloride Carbon Dioxide 18 L BUN 107 H Creatinine 2.6 H Glucose 187 H POC Glucose 230 H Lactic Acid Calcium 8.3 L Ionized Calcium Phosphorus Magnesium Direct Bilirubin AST ALT Alkaline Phosphatase Lactate Dehydrogenase Troponin T C-Reactive Protein Total Protein Albumin Prealbumin Triglycerides Cholesterol LDL Cholesterol Direct HDL Cholesterol 25-OH Vitamin D Total PTH Intact Urine pH Urine WBC (Auto) Urine Creatinine Urine Total Protein Fluid Total Protein Vancomycin Trough Rheumatoid Factor Complement C4 Miscellaneous Test Crossmatch 09/11/16 09/11/16 09/11/16 05:55 12:02 17:32 WBC RBC Hgb Hct MCV MCH MCHC RDW Plt Count Lymph % (Auto) Harper % (Auto) Lymph # Harper # Baso # Seg Neutrophils % Seg Neuts % (Manual) Lymphocytes % (Manual) Monocytes % (Manual) Eosinophils % (Manual) Basophils % (Manual) Nucleated RBC % Seg Neutrophils # Seg Neutrophils # Man Lymphocytes # (Manual) Monocytes # (Manual) Eosinophils # (Manual) Basophils # (Manual) PT INR Fibrinogen dRVVT Confirm Interp Factor V Activity POC ABG pH POC ABG pCO2 33.8 L POC ABG pO2 ABG pO2 ABG HCO3 ABG Base Excess ABG Hemoglobin Oxyhemoglobin Sodium Potassium Chloride Carbon Dioxide BUN Creatinine Glucose POC Glucose 191 H 239 H Lactic Acid Calcium Ionized Calcium Phosphorus Magnesium Direct Bilirubin AST ALT Alkaline Phosphatase Lactate Dehydrogenase Troponin T C-Reactive Protein Total Protein Albumin Prealbumin Triglycerides Cholesterol LDL Cholesterol Direct HDL Cholesterol 25-OH Vitamin D Total PTH Intact Urine pH Urine WBC (Auto) Urine Creatinine Urine Total Protein Fluid Total Protein Vancomycin Trough Rheumatoid Factor Complement C4 Miscellaneous Test Crossmatch 09/11/16 09/12/16 09/12/16 23:52 05:09 05:32 WBC RBC Hgb Hct MCV MCH MCHC RDW Plt Count Lymph % (Auto) Harper % (Auto) Lymph # Harper # Baso # Seg Neutrophils % Seg Neuts % (Manual) Lymphocytes % (Manual) Monocytes % (Manual) Eosinophils % (Manual) Basophils % (Manual) Nucleated RBC % Seg Neutrophils # Seg Neutrophils # Man Lymphocytes # (Manual) Monocytes # (Manual) Eosinophils # (Manual) Basophils # (Manual) PT INR Fibrinogen dRVVT Confirm Interp Factor V Activity POC ABG pH POC ABG pCO2 34.6 L POC ABG pO2 ABG pO2 ABG HCO3 ABG Base Excess ABG Hemoglobin Oxyhemoglobin Sodium Potassium Chloride Carbon Dioxide BUN Creatinine Glucose POC Glucose 265 H 184 H Lactic Acid Calcium Ionized Calcium Phosphorus Magnesium Direct Bilirubin AST ALT Alkaline Phosphatase Lactate Dehydrogenase Troponin T C-Reactive Protein Total Protein Albumin Prealbumin Triglycerides Cholesterol LDL Cholesterol Direct HDL Cholesterol 25-OH Vitamin D Total PTH Intact Urine pH Urine WBC (Auto) Urine Creatinine Urine Total Protein Fluid Total Protein Vancomycin Trough Rheumatoid Factor Complement C4 Miscellaneous Test Crossmatch 09/12/16 09/12/16 09/12/16 06:45 06:45 07:22 WBC 31.7 H RBC 3.54 L Hgb 8.3 L Hct 25.9 L MCV 73 L MCH 23 L MCHC RDW 18.9 H Plt Count Lymph % (Auto) Harper % (Auto) Lymph # Harper # Baso # Seg Neutrophils % Seg Neuts % (Manual) 88.5 H Lymphocytes % (Manual) 4.5 L Monocytes % (Manual) Eosinophils % (Manual) Basophils % (Manual) Nucleated RBC % Seg Neutrophils # Seg Neutrophils # Man 28.1 H Lymphocytes # (Manual) Monocytes # (Manual) 1.0 H Eosinophils # (Manual) Basophils # (Manual) PT INR Fibrinogen dRVVT Confirm Interp Factor V Activity POC ABG pH POC ABG pCO2 POC ABG pO2 ABG pO2 ABG HCO3 ABG Base Excess ABG Hemoglobin Oxyhemoglobin Sodium Potassium Chloride Carbon Dioxide 20 L BUN 115 H Creatinine 2.7 H Glucose 165 H POC Glucose Lactic Acid Calcium 8.0 L Ionized Calcium Phosphorus Magnesium Direct Bilirubin AST ALT Alkaline Phosphatase Lactate Dehydrogenase Troponin T C-Reactive Protein Total Protein Albumin Prealbumin Triglycerides 217 H Cholesterol LDL Cholesterol Direct HDL Cholesterol 25-OH Vitamin D Total PTH Intact Urine pH Urine WBC (Auto) Urine Creatinine Urine Total Protein Fluid Total Protein Vancomycin Trough Rheumatoid Factor Complement C4 Miscellaneous Test Crossmatch 09/12/16 09/12/16 09/12/16 07:22 09:59 12:21 WBC RBC Hgb Hct MCV MCH MCHC RDW Plt Count Lymph % (Auto) Harper % (Auto) Lymph # Harper # Baso # Seg Neutrophils % Seg Neuts % (Manual) Lymphocytes % (Manual) Monocytes % (Manual) Eosinophils % (Manual) Basophils % (Manual) Nucleated RBC % Seg Neutrophils # Seg Neutrophils # Man Lymphocytes # (Manual) Monocytes # (Manual) Eosinophils # (Manual) Basophils # (Manual) PT INR Fibrinogen dRVVT Confirm Interp Positive H Factor V Activity POC ABG pH POC ABG pCO2 POC ABG pO2 ABG pO2 ABG HCO3 ABG Base Excess ABG Hemoglobin Oxyhemoglobin Sodium Potassium Chloride Carbon Dioxide BUN Creatinine Glucose POC Glucose 224 H Lactic Acid Calcium Ionized Calcium Phosphorus Magnesium Direct Bilirubin AST ALT Alkaline Phosphatase Lactate Dehydrogenase Troponin T C-Reactive Protein 1.70 H Total Protein Albumin Prealbumin Triglycerides Cholesterol LDL Cholesterol Direct HDL Cholesterol 25-OH Vitamin D Total PTH Intact Urine pH Urine WBC (Auto) Urine Creatinine Urine Total Protein Fluid Total Protein Vancomycin Trough Rheumatoid Factor Complement C4 Miscellaneous Test Crossmatch 09/12/16 09/12/16 09/13/16 16:51 23:28 04:00 WBC 45.0 H* RBC Hgb 9.4 L Hct MCV 75 L MCH 23 L MCHC RDW 19.0 H Plt Count 470 H Lymph % (Auto) Harper % (Auto) Lymph # Harper # Baso # Seg Neutrophils % Seg Neuts % (Manual) 89.0 H Lymphocytes % (Manual) 5.0 L Monocytes % (Manual) Eosinophils % (Manual) Basophils % (Manual) Nucleated RBC % Seg Neutrophils # Seg Neutrophils # Man 40.1 H Lymphocytes # (Manual) Monocytes # (Manual) Eosinophils # (Manual) Basophils # (Manual) PT INR Fibrinogen dRVVT Confirm Interp Factor V Activity POC ABG pH POC ABG pCO2 POC ABG pO2 ABG pO2 ABG HCO3 ABG Base Excess ABG Hemoglobin Oxyhemoglobin Sodium Potassium Chloride Carbon Dioxide BUN Creatinine Glucose POC Glucose 169 H 150 H Lactic Acid Calcium Ionized Calcium Phosphorus Magnesium Direct Bilirubin AST ALT Alkaline Phosphatase Lactate Dehydrogenase Troponin T C-Reactive Protein Total Protein Albumin Prealbumin Triglycerides Cholesterol LDL Cholesterol Direct HDL Cholesterol 25-OH Vitamin D Total PTH Intact Urine pH Urine WBC (Auto) Urine Creatinine Urine Total Protein Fluid Total Protein Vancomycin Trough Rheumatoid Factor Complement C4 Miscellaneous Test Crossmatch 09/13/16 09/13/16 09/13/16 04:00 11:26 17:31 WBC RBC Hgb Hct MCV MCH MCHC RDW Plt Count Lymph % (Auto) Harper % (Auto) Lymph # Harper # Baso # Seg Neutrophils % Seg Neuts % (Manual) Lymphocytes % (Manual) Monocytes % (Manual) Eosinophils % (Manual) Basophils % (Manual) Nucleated RBC % Seg Neutrophils # Seg Neutrophils # Man Lymphocytes # (Manual) Monocytes # (Manual) Eosinophils # (Manual) Basophils # (Manual) PT INR Fibrinogen dRVVT Confirm Interp Factor V Activity POC ABG pH POC ABG pCO2 POC ABG pO2 ABG pO2 ABG HCO3 ABG Base Excess ABG Hemoglobin Oxyhemoglobin Sodium Potassium Chloride Carbon Dioxide 20 L BUN 116 H Creatinine 3.0 H Glucose 172 H POC Glucose 140 H 183 H Lactic Acid Calcium Ionized Calcium Phosphorus Magnesium Direct Bilirubin AST ALT Alkaline Phosphatase Lactate Dehydrogenase Troponin T C-Reactive Protein Total Protein 6.2 L Albumin 2.9 L Prealbumin Triglycerides Cholesterol LDL Cholesterol Direct HDL Cholesterol 25-OH Vitamin D Total PTH Intact Urine pH Urine WBC (Auto) Urine Creatinine Urine Total Protein Fluid Total Protein Vancomycin Trough Rheumatoid Factor Complement C4 Miscellaneous Test Crossmatch 09/13/16 09/14/16 09/14/16 23:23 04:06 04:07 WBC 29.4 H RBC Hgb 8.9 L Hct 27.3 L MCV 75 L MCH 24 L MCHC RDW 19.1 H Plt Count Lymph % (Auto) Harper % (Auto) Lymph # Harper # Baso # Seg Neutrophils % Seg Neuts % (Manual) 84.0 H Lymphocytes % (Manual) 6.0 L Monocytes % (Manual) 9.0 H Eosinophils % (Manual) Basophils % (Manual) Nucleated RBC % Seg Neutrophils # Seg Neutrophils # Man 24.7 H Lymphocytes # (Manual) Monocytes # (Manual) 2.6 H Eosinophils # (Manual) Basophils # (Manual) PT INR Fibrinogen dRVVT Confirm Interp Factor V Activity POC ABG pH 7.342 L POC ABG pCO2 POC ABG pO2 116 H ABG pO2 ABG HCO3 ABG Base Excess ABG Hemoglobin Oxyhemoglobin Sodium Potassium Chloride Carbon Dioxide BUN Creatinine Glucose POC Glucose 154 H Lactic Acid Calcium Ionized Calcium Phosphorus Magnesium Direct Bilirubin AST ALT Alkaline Phosphatase Lactate Dehydrogenase Troponin T C-Reactive Protein Total Protein Albumin Prealbumin Triglycerides Cholesterol LDL Cholesterol Direct HDL Cholesterol 25-OH Vitamin D Total PTH Intact Urine pH Urine WBC (Auto) Urine Creatinine Urine Total Protein Fluid Total Protein Vancomycin Trough Rheumatoid Factor Complement C4 Miscellaneous Test Crossmatch 09/14/16 09/14/16 09/14/16 04:07 05:29 12:19 WBC RBC Hgb Hct MCV MCH MCHC RDW Plt Count Lymph % (Auto) Harper % (Auto) Lymph # Harper # Baso # Seg Neutrophils % Seg Neuts % (Manual) Lymphocytes % (Manual) Monocytes % (Manual) Eosinophils % (Manual) Basophils % (Manual) Nucleated RBC % Seg Neutrophils # Seg Neutrophils # Man Lymphocytes # (Manual) Monocytes # (Manual) Eosinophils # (Manual) Basophils # (Manual) PT INR Fibrinogen dRVVT Confirm Interp Factor V Activity POC ABG pH POC ABG pCO2 POC ABG pO2 ABG pO2 ABG HCO3 ABG Base Excess ABG Hemoglobin Oxyhemoglobin Sodium 136 L Potassium Chloride Carbon Dioxide 18 L BUN 121 H Creatinine 2.8 H Glucose 214 H POC Glucose 239 H 181 H Lactic Acid Calcium Ionized Calcium Phosphorus Magnesium Direct Bilirubin AST ALT Alkaline Phosphatase Lactate Dehydrogenase Troponin T C-Reactive Protein Total Protein Albumin Prealbumin Triglycerides Cholesterol LDL Cholesterol Direct HDL Cholesterol 25-OH Vitamin D Total PTH Intact Urine pH Urine WBC (Auto) Urine Creatinine Urine Total Protein Fluid Total Protein Vancomycin Trough Rheumatoid Factor Complement C4 Miscellaneous Test Crossmatch 09/14/16 09/14/16 09/15/16 18:12 23:37 05:00 WBC 26.1 H RBC 3.05 L Hgb 7.2 L Hct 22.9 L MCV 75 L MCH 24 L MCHC RDW 19.0 H Plt Count Lymph % (Auto) Harper % (Auto) Lymph # Harper # Baso # Seg Neutrophils % Seg Neuts % (Manual) Lymphocytes % (Manual) Monocytes % (Manual) Eosinophils % (Manual) Basophils % (Manual) Nucleated RBC % Seg Neutrophils # Seg Neutrophils # Man Lymphocytes # (Manual) Monocytes # (Manual) Eosinophils # (Manual) Basophils # (Manual) PT INR Fibrinogen dRVVT Confirm Interp Factor V Activity POC ABG pH POC ABG pCO2 POC ABG pO2 ABG pO2 ABG HCO3 ABG Base Excess ABG Hemoglobin Oxyhemoglobin Sodium Potassium Chloride Carbon Dioxide BUN Creatinine Glucose POC Glucose 266 H 154 H Lactic Acid Calcium Ionized Calcium Phosphorus Magnesium Direct Bilirubin AST ALT Alkaline Phosphatase Lactate Dehydrogenase Troponin T C-Reactive Protein Total Protein Albumin Prealbumin Triglycerides Cholesterol LDL Cholesterol Direct HDL Cholesterol 25-OH Vitamin D Total PTH Intact Urine pH Urine WBC (Auto) Urine Creatinine Urine Total Protein Fluid Total Protein Vancomycin Trough Rheumatoid Factor Complement C4 Miscellaneous Test Crossmatch 09/15/16 09/15/16 09/15/16 05:00 05:17 12:45 WBC RBC Hgb Hct MCV MCH MCHC RDW Plt Count Lymph % (Auto) Harper % (Auto) Lymph # Harper # Baso # Seg Neutrophils % Seg Neuts % (Manual) Lymphocytes % (Manual) Monocytes % (Manual) Eosinophils % (Manual) Basophils % (Manual) Nucleated RBC % Seg Neutrophils # Seg Neutrophils # Man Lymphocytes # (Manual) Monocytes # (Manual) Eosinophils # (Manual) Basophils # (Manual) PT INR Fibrinogen dRVVT Confirm Interp Factor V Activity POC ABG pH POC ABG pCO2 POC ABG pO2 ABG pO2 ABG HCO3 ABG Base Excess ABG Hemoglobin Oxyhemoglobin Sodium Potassium 5.2 H Chloride Carbon Dioxide 18 L BUN 139 H Creatinine 3.7 H Glucose 227 H POC Glucose 226 H 244 H Lactic Acid Calcium 8.3 L Ionized Calcium Phosphorus Magnesium Direct Bilirubin AST ALT Alkaline Phosphatase Lactate Dehydrogenase Troponin T C-Reactive Protein Total Protein Albumin Prealbumin Triglycerides Cholesterol LDL Cholesterol Direct HDL Cholesterol 25-OH Vitamin D Total PTH Intact Urine pH Urine WBC (Auto) Urine Creatinine Urine Total Protein Fluid Total Protein Vancomycin Trough Rheumatoid Factor Complement C4 Miscellaneous Test Crossmatch 09/15/16 09/15/16 09/15/16 14:32 17:33 23:35 WBC RBC Hgb Hct MCV MCH MCHC RDW Plt Count Lymph % (Auto) Harper % (Auto) Lymph # Harper # Baso # Seg Neutrophils % Seg Neuts % (Manual) Lymphocytes % (Manual) Monocytes % (Manual) Eosinophils % (Manual) Basophils % (Manual) Nucleated RBC % Seg Neutrophils # Seg Neutrophils # Man Lymphocytes # (Manual) Monocytes # (Manual) Eosinophils # (Manual) Basophils # (Manual) PT INR Fibrinogen dRVVT Confirm Interp Factor V Activity POC ABG pH POC ABG pCO2 27.7 L POC ABG pO2 120 H ABG pO2 ABG HCO3 ABG Base Excess ABG Hemoglobin Oxyhemoglobin Sodium Potassium Chloride Carbon Dioxide BUN Creatinine Glucose POC Glucose 232 H 167 H Lactic Acid Calcium Ionized Calcium Phosphorus Magnesium Direct Bilirubin AST ALT Alkaline Phosphatase Lactate Dehydrogenase Troponin T C-Reactive Protein Total Protein Albumin Prealbumin Triglycerides Cholesterol LDL Cholesterol Direct HDL Cholesterol 25-OH Vitamin D Total PTH Intact Urine pH Urine WBC (Auto) Urine Creatinine Urine Total Protein Fluid Total Protein Vancomycin Trough Rheumatoid Factor Complement C4 Miscellaneous Test Crossmatch 09/16/16 09/16/16 09/16/16 03:58 10:27 10:27 WBC 19.0 H RBC 2.77 L Hgb 6.5 L Hct 20.9 L MCV 76 L MCH 23 L MCHC RDW 19.3 H Plt Count Lymph % (Auto) 11.0 L Harper % (Auto) Lymph # Harper # 1.1 H Baso # Seg Neutrophils % 82.5 H Seg Neuts % (Manual) Lymphocytes % (Manual) Monocytes % (Manual) Eosinophils % (Manual) Basophils % (Manual) Nucleated RBC % Seg Neutrophils # 15.7 H Seg Neutrophils # Man Lymphocytes # (Manual) Monocytes # (Manual) Eosinophils # (Manual) Basophils # (Manual) PT INR Fibrinogen dRVVT Confirm Interp Factor V Activity POC ABG pH POC ABG pCO2 POC ABG pO2 ABG pO2 ABG HCO3 ABG Base Excess ABG Hemoglobin Oxyhemoglobin Sodium Potassium Chloride 109.3 H Carbon Dioxide 18 L BUN 139 H Creatinine 4.1 H Glucose 144 H POC Glucose 146 H Lactic Acid Calcium 8.1 L Ionized Calcium Phosphorus Magnesium Direct Bilirubin AST ALT Alkaline Phosphatase Lactate Dehydrogenase Troponin T C-Reactive Protein Total Protein Albumin Prealbumin Triglycerides Cholesterol LDL Cholesterol Direct HDL Cholesterol 25-OH Vitamin D Total PTH Intact Urine pH Urine WBC (Auto) Urine Creatinine Urine Total Protein Fluid Total Protein Vancomycin Trough Rheumatoid Factor Complement C4 Miscellaneous Test Crossmatch 09/16/16 09/16/16 09/16/16 12:04 12:10 13:55 WBC RBC Hgb Hct MCV MCH MCHC RDW Plt Count Lymph % (Auto) Harper % (Auto) Lymph # Harper # Baso # Seg Neutrophils % Seg Neuts % (Manual) Lymphocytes % (Manual) Monocytes % (Manual) Eosinophils % (Manual) Basophils % (Manual) Nucleated RBC % Seg Neutrophils # Seg Neutrophils # Man Lymphocytes # (Manual) Monocytes # (Manual) Eosinophils # (Manual) Basophils # (Manual) PT INR Fibrinogen dRVVT Confirm Interp Factor V Activity POC ABG pH POC ABG pCO2 32.9 L POC ABG pO2 ABG pO2 ABG HCO3 ABG Base Excess ABG Hemoglobin Oxyhemoglobin Sodium Potassium Chloride Carbon Dioxide BUN Creatinine Glucose POC Glucose 185 H Lactic Acid Calcium Ionized Calcium Phosphorus Magnesium Direct Bilirubin AST ALT Alkaline Phosphatase Lactate Dehydrogenase Troponin T C-Reactive Protein Total Protein Albumin Prealbumin Triglycerides Cholesterol LDL Cholesterol Direct HDL Cholesterol 25-OH Vitamin D Total PTH Intact Urine pH Urine WBC (Auto) Urine Creatinine Urine Total Protein Fluid Total Protein Vancomycin Trough Rheumatoid Factor Complement C4 Miscellaneous Test Crossmatch See Detail 09/16/16 09/16/16 09/16/16 17:55 19:19 23:48 WBC RBC Hgb Hct MCV MCH MCHC RDW Plt Count Lymph % (Auto) Harper % (Auto) Lymph # Harper # Baso # Seg Neutrophils % Seg Neuts % (Manual) Lymphocytes % (Manual) Monocytes % (Manual) Eosinophils % (Manual) Basophils % (Manual) Nucleated RBC % Seg Neutrophils # Seg Neutrophils # Man Lymphocytes # (Manual) Monocytes # (Manual) Eosinophils # (Manual) Basophils # (Manual) PT INR Fibrinogen dRVVT Confirm Interp Factor V Activity POC ABG pH POC ABG pCO2 POC ABG pO2 ABG pO2 ABG HCO3 ABG Base Excess ABG Hemoglobin Oxyhemoglobin Sodium Potassium Chloride Carbon Dioxide BUN Creatinine Glucose POC Glucose 222 H 107 H Lactic Acid Calcium Ionized Calcium Phosphorus Magnesium Direct Bilirubin AST ALT Alkaline Phosphatase Lactate Dehydrogenase Troponin T C-Reactive Protein Total Protein Albumin Prealbumin Triglycerides Cholesterol LDL Cholesterol Direct HDL Cholesterol 25-OH Vitamin D Total PTH Intact Urine pH Urine WBC (Auto) Urine Creatinine 47.4 H Urine Total Protein 16 H Fluid Total Protein Vancomycin Trough Rheumatoid Factor Complement C4 Miscellaneous Test Crossmatch 09/17/16 09/17/16 09/17/16 03:45 03:45 04:55 WBC 19.6 H RBC 3.41 L Hgb 8.5 L Hct 26.7 L MCV 78 L MCH 25 L MCHC RDW 19.9 H Plt Count Lymph % (Auto) 9.3 L Harper % (Auto) Lymph # Harper # 1.2 H Baso # Seg Neutrophils % 83.9 H Seg Neuts % (Manual) Lymphocytes % (Manual) Monocytes % (Manual) Eosinophils % (Manual) Basophils % (Manual) Nucleated RBC % Seg Neutrophils # 16.4 H Seg Neutrophils # Man Lymphocytes # (Manual) Monocytes # (Manual) Eosinophils # (Manual) Basophils # (Manual) PT INR Fibrinogen dRVVT Confirm Interp Factor V Activity POC ABG pH POC ABG pCO2 POC ABG pO2 ABG pO2 ABG HCO3 ABG Base Excess ABG Hemoglobin Oxyhemoglobin Sodium 146 H Potassium 5.1 H Chloride 110.9 H Carbon Dioxide 16 L BUN 146 H Creatinine 4.0 H Glucose 108 H POC Glucose 133 H Lactic Acid Calcium Ionized Calcium Phosphorus Magnesium 3.00 H Direct Bilirubin AST ALT Alkaline Phosphatase Lactate Dehydrogenase Troponin T C-Reactive Protein Total Protein Albumin Prealbumin Triglycerides Cholesterol LDL Cholesterol Direct HDL Cholesterol 25-OH Vitamin D Total PTH Intact Urine pH Urine WBC (Auto) Urine Creatinine Urine Total Protein Fluid Total Protein Vancomycin Trough Rheumatoid Factor Complement C4 Miscellaneous Test Crossmatch 09/17/16 09/17/16 09/17/16 11:15 17:33 23:47 WBC RBC Hgb Hct MCV MCH MCHC RDW Plt Count Lymph % (Auto) Harper % (Auto) Lymph # Harper # Baso # Seg Neutrophils % Seg Neuts % (Manual) Lymphocytes % (Manual) Monocytes % (Manual) Eosinophils % (Manual) Basophils % (Manual) Nucleated RBC % Seg Neutrophils # Seg Neutrophils # Man Lymphocytes # (Manual) Monocytes # (Manual) Eosinophils # (Manual) Basophils # (Manual) PT INR Fibrinogen dRVVT Confirm Interp Factor V Activity POC ABG pH POC ABG pCO2 POC ABG pO2 ABG pO2 ABG HCO3 ABG Base Excess ABG Hemoglobin Oxyhemoglobin Sodium Potassium Chloride Carbon Dioxide BUN Creatinine Glucose POC Glucose 176 H 246 H 148 H Lactic Acid Calcium Ionized Calcium Phosphorus Magnesium Direct Bilirubin AST ALT Alkaline Phosphatase Lactate Dehydrogenase Troponin T C-Reactive Protein Total Protein Albumin Prealbumin Triglycerides Cholesterol LDL Cholesterol Direct HDL Cholesterol 25-OH Vitamin D Total PTH Intact Urine pH Urine WBC (Auto) Urine Creatinine Urine Total Protein Fluid Total Protein Vancomycin Trough Rheumatoid Factor Complement C4 Miscellaneous Test Crossmatch 09/18/16 09/18/16 09/18/16 05:33 08:31 08:31 WBC 18.0 H RBC 3.17 L Hgb 9.0 L Hct 25.7 L MCV MCH MCHC 35 H RDW 20.4 H Plt Count Lymph % (Auto) Harper % (Auto) Lymph # Harper # Baso # Seg Neutrophils % Seg Neuts % (Manual) Lymphocytes % (Manual) Monocytes % (Manual) Eosinophils % (Manual) Basophils % (Manual) Nucleated RBC % Seg Neutrophils # Seg Neutrophils # Man Lymphocytes # (Manual) Monocytes # (Manual) Eosinophils # (Manual) Basophils # (Manual) PT INR Fibrinogen dRVVT Confirm Interp Factor V Activity POC ABG pH POC ABG pCO2 POC ABG pO2 ABG pO2 ABG HCO3 ABG Base Excess ABG Hemoglobin Oxyhemoglobin Sodium Potassium Chloride Carbon Dioxide 15 L BUN 124 H Creatinine 3.8 H Glucose POC Glucose 120 H Lactic Acid Calcium 8.1 L Ionized Calcium Phosphorus Magnesium Direct Bilirubin AST ALT Alkaline Phosphatase Lactate Dehydrogenase Troponin T C-Reactive Protein Total Protein Albumin Prealbumin Triglycerides Cholesterol LDL Cholesterol Direct HDL Cholesterol 25-OH Vitamin D Total PTH Intact Urine pH Urine WBC (Auto) Urine Creatinine Urine Total Protein Fluid Total Protein Vancomycin Trough Rheumatoid Factor Complement C4 Miscellaneous Test Crossmatch 09/18/16 09/18/16 09/18/16 12:03 15:34 17:50 WBC RBC Hgb Hct MCV MCH MCHC RDW Plt Count Lymph % (Auto) Harper % (Auto) Lymph # Harper # Baso # Seg Neutrophils % Seg Neuts % (Manual) Lymphocytes % (Manual) Monocytes % (Manual) Eosinophils % (Manual) Basophils % (Manual) Nucleated RBC % Seg Neutrophils # Seg Neutrophils # Man Lymphocytes # (Manual) Monocytes # (Manual) Eosinophils # (Manual) Basophils # (Manual) PT INR Fibrinogen dRVVT Confirm Interp Factor V Activity POC ABG pH POC ABG pCO2 25.7 L POC ABG pO2 66 L ABG pO2 ABG HCO3 ABG Base Excess ABG Hemoglobin Oxyhemoglobin Sodium Potassium Chloride Carbon Dioxide BUN Creatinine Glucose POC Glucose 156 H 220 H Lactic Acid Calcium Ionized Calcium Phosphorus Magnesium Direct Bilirubin AST ALT Alkaline Phosphatase Lactate Dehydrogenase Troponin T C-Reactive Protein Total Protein Albumin Prealbumin Triglycerides Cholesterol LDL Cholesterol Direct HDL Cholesterol 25-OH Vitamin D Total PTH Intact Urine pH Urine WBC (Auto) Urine Creatinine Urine Total Protein Fluid Total Protein Vancomycin Trough Rheumatoid Factor Complement C4 Miscellaneous Test Crossmatch 09/19/16 09/19/16 09/19/16 06:21 09:50 09:50 WBC 17.1 H RBC 3.49 L Hgb 9.0 L Hct 28.1 L MCV MCH 26 L MCHC RDW 20.8 H Plt Count Lymph % (Auto) 11.5 L Harper % (Auto) 7.5 H Lymph # Harper # 1.3 H Baso # Seg Neutrophils % 79.8 H Seg Neuts % (Manual) Lymphocytes % (Manual) Monocytes % (Manual) Eosinophils % (Manual) Basophils % (Manual) Nucleated RBC % Seg Neutrophils # 13.7 H Seg Neutrophils # Man Lymphocytes # (Manual) Monocytes # (Manual) Eosinophils # (Manual) Basophils # (Manual) PT INR Fibrinogen dRVVT Confirm Interp Factor V Activity POC ABG pH POC ABG pCO2 POC ABG pO2 ABG pO2 ABG HCO3 ABG Base Excess ABG Hemoglobin Oxyhemoglobin Sodium Potassium Chloride 108.6 H Carbon Dioxide 15 L BUN 125 H Creatinine 4.1 H Glucose 124 H POC Glucose 119 H Lactic Acid Calcium Ionized Calcium Phosphorus Magnesium Direct Bilirubin AST ALT Alkaline Phosphatase Lactate Dehydrogenase Troponin T C-Reactive Protein Total Protein Albumin Prealbumin Triglycerides Cholesterol LDL Cholesterol Direct HDL Cholesterol 25-OH Vitamin D Total PTH Intact Urine pH Urine WBC (Auto) Urine Creatinine Urine Total Protein Fluid Total Protein Vancomycin Trough Rheumatoid Factor Complement C4 Miscellaneous Test Crossmatch 09/19/16 09/19/16 09/19/16 11:25 17:53 23:36 WBC RBC Hgb Hct MCV MCH MCHC RDW Plt Count Lymph % (Auto) Harper % (Auto) Lymph # Harper # Baso # Seg Neutrophils % Seg Neuts % (Manual) Lymphocytes % (Manual) Monocytes % (Manual) Eosinophils % (Manual) Basophils % (Manual) Nucleated RBC % Seg Neutrophils # Seg Neutrophils # Man Lymphocytes # (Manual) Monocytes # (Manual) Eosinophils # (Manual) Basophils # (Manual) PT INR Fibrinogen dRVVT Confirm Interp Factor V Activity POC ABG pH POC ABG pCO2 POC ABG pO2 ABG pO2 ABG HCO3 ABG Base Excess ABG Hemoglobin Oxyhemoglobin Sodium Potassium Chloride Carbon Dioxide BUN Creatinine Glucose POC Glucose 160 H 245 H 121 H Lactic Acid Calcium Ionized Calcium Phosphorus Magnesium Direct Bilirubin AST ALT Alkaline Phosphatase Lactate Dehydrogenase Troponin T C-Reactive Protein Total Protein Albumin Prealbumin Triglycerides Cholesterol LDL Cholesterol Direct HDL Cholesterol 25-OH Vitamin D Total PTH Intact Urine pH Urine WBC (Auto) Urine Creatinine Urine Total Protein Fluid Total Protein Vancomycin Trough Rheumatoid Factor Complement C4 Miscellaneous Test Crossmatch 09/20/16 09/20/16 09/20/16 04:10 04:10 04:10 WBC 17.0 H RBC 3.21 L Hgb 8.2 L Hct 25.5 L MCV MCH 26 L MCHC RDW 20.9 H Plt Count Lymph % (Auto) Harper % (Auto) Lymph # Harper # Baso # Seg Neutrophils % Seg Neuts % (Manual) Lymphocytes % (Manual) Monocytes % (Manual) Eosinophils % (Manual) Basophils % (Manual) Nucleated RBC % Seg Neutrophils # Seg Neutrophils # Man Lymphocytes # (Manual) Monocytes # (Manual) Eosinophils # (Manual) Basophils # (Manual) PT INR Fibrinogen dRVVT Confirm Interp Factor V Activity POC ABG pH POC ABG pCO2 POC ABG pO2 ABG pO2 ABG HCO3 ABG Base Excess ABG Hemoglobin Oxyhemoglobin Sodium Potassium Chloride 111.0 H Carbon Dioxide 16 L BUN 129 H Creatinine 3.7 H Glucose 115 H POC Glucose Lactic Acid Calcium 8.2 L Ionized Calcium Phosphorus Magnesium Direct Bilirubin AST ALT Alkaline Phosphatase Lactate Dehydrogenase Troponin T C-Reactive Protein Total Protein Albumin Prealbumin Triglycerides 243 H Cholesterol LDL Cholesterol Direct HDL Cholesterol 25-OH Vitamin D Total PTH Intact Urine pH Urine WBC (Auto) Urine Creatinine Urine Total Protein Fluid Total Protein Vancomycin Trough Rheumatoid Factor Complement C4 Miscellaneous Test Crossmatch 09/20/16 09/20/16 09/20/16 05:40 11:52 16:50 WBC RBC Hgb Hct MCV MCH MCHC RDW Plt Count Lymph % (Auto) Harper % (Auto) Lymph # Harper # Baso # Seg Neutrophils % Seg Neuts % (Manual) Lymphocytes % (Manual) Monocytes % (Manual) Eosinophils % (Manual) Basophils % (Manual) Nucleated RBC % Seg Neutrophils # Seg Neutrophils # Man Lymphocytes # (Manual) Monocytes # (Manual) Eosinophils # (Manual) Basophils # (Manual) PT INR Fibrinogen dRVVT Confirm Interp Factor V Activity POC ABG pH POC ABG pCO2 POC ABG pO2 ABG pO2 ABG HCO3 ABG Base Excess ABG Hemoglobin Oxyhemoglobin Sodium Potassium Chloride Carbon Dioxide BUN Creatinine Glucose POC Glucose 131 H 183 H 236 H Lactic Acid Calcium Ionized Calcium Phosphorus Magnesium Direct Bilirubin AST ALT Alkaline Phosphatase Lactate Dehydrogenase Troponin T C-Reactive Protein Total Protein Albumin Prealbumin Triglycerides Cholesterol LDL Cholesterol Direct HDL Cholesterol 25-OH Vitamin D Total PTH Intact Urine pH Urine WBC (Auto) Urine Creatinine Urine Total Protein Fluid Total Protein Vancomycin Trough Rheumatoid Factor Complement C4 Miscellaneous Test Crossmatch 09/20/16 09/21/16 09/21/16 23:51 03:30 04:44 WBC RBC Hgb Hct MCV MCH MCHC RDW Plt Count Lymph % (Auto) Harper % (Auto) Lymph # Harper # Baso # Seg Neutrophils % Seg Neuts % (Manual) Lymphocytes % (Manual) Monocytes % (Manual) Eosinophils % (Manual) Basophils % (Manual) Nucleated RBC % Seg Neutrophils # Seg Neutrophils # Man Lymphocytes # (Manual) Monocytes # (Manual) Eosinophils # (Manual) Basophils # (Manual) PT INR Fibrinogen dRVVT Confirm Interp Factor V Activity POC ABG pH POC ABG pCO2 POC ABG pO2 ABG pO2 ABG HCO3 ABG Base Excess ABG Hemoglobin Oxyhemoglobin Sodium Potassium Chloride Carbon Dioxide BUN Creatinine Glucose POC Glucose 114 H 141 H Lactic Acid Calcium Ionized Calcium Phosphorus Magnesium 2.70 H Direct Bilirubin AST ALT Alkaline Phosphatase Lactate Dehydrogenase Troponin T C-Reactive Protein Total Protein Albumin Prealbumin Triglycerides Cholesterol LDL Cholesterol Direct HDL Cholesterol 25-OH Vitamin D Total PTH Intact Urine pH Urine WBC (Auto) Urine Creatinine Urine Total Protein Fluid Total Protein Vancomycin Trough Rheumatoid Factor Complement C4 Miscellaneous Test Crossmatch 09/21/16 09/21/16 09/21/16 07:45 07:45 10:01 WBC 13.8 H RBC 2.94 L Hgb 7.5 L Hct 23.5 L MCV MCH 26 L MCHC RDW 21.2 H Plt Count Lymph % (Auto) 6.9 L Harper % (Auto) 9.4 H Lymph # 0.9 L Harper # 1.3 H Baso # Seg Neutrophils % 83.2 H Seg Neuts % (Manual) Lymphocytes % (Manual) Monocytes % (Manual) Eosinophils % (Manual) Basophils % (Manual) Nucleated RBC % Seg Neutrophils # 11.5 H Seg Neutrophils # Man Lymphocytes # (Manual) Monocytes # (Manual) Eosinophils # (Manual) Basophils # (Manual) PT INR Fibrinogen dRVVT Confirm Interp Factor V Activity POC ABG pH 7.308 L POC ABG pCO2 31.9 L POC ABG pO2 148 H ABG pO2 ABG HCO3 ABG Base Excess ABG Hemoglobin Oxyhemoglobin Sodium 147 H Potassium Chloride 114.2 H Carbon Dioxide 15 L BUN 120 H Creatinine 3.9 H Glucose 156 H POC Glucose Lactic Acid Calcium 8.2 L Ionized Calcium Phosphorus Magnesium Direct Bilirubin AST ALT Alkaline Phosphatase Lactate Dehydrogenase Troponin T C-Reactive Protein Total Protein Albumin Prealbumin Triglycerides Cholesterol LDL Cholesterol Direct HDL Cholesterol 25-OH Vitamin D Total PTH Intact Urine pH Urine WBC (Auto) Urine Creatinine Urine Total Protein Fluid Total Protein Vancomycin Trough Rheumatoid Factor Complement C4 Miscellaneous Test Crossmatch 09/21/16 09/21/16 09/21/16 12:00 12:03 13:00 WBC RBC Hgb Hct MCV MCH MCHC RDW Plt Count Lymph % (Auto) Harper % (Auto) Lymph # Harper # Baso # Seg Neutrophils % Seg Neuts % (Manual) Lymphocytes % (Manual) Monocytes % (Manual) Eosinophils % (Manual) Basophils % (Manual) Nucleated RBC % Seg Neutrophils # Seg Neutrophils # Man Lymphocytes # (Manual) Monocytes # (Manual) Eosinophils # (Manual) Basophils # (Manual) PT INR Fibrinogen dRVVT Confirm Interp Factor V Activity POC ABG pH POC ABG pCO2 POC ABG pO2 ABG pO2 ABG HCO3 ABG Base Excess ABG Hemoglobin Oxyhemoglobin Sodium Potassium Chloride Carbon Dioxide BUN Creatinine Glucose POC Glucose 163 H Lactic Acid Calcium Ionized Calcium Phosphorus Magnesium Direct Bilirubin AST ALT Alkaline Phosphatase Lactate Dehydrogenase Troponin T C-Reactive Protein Total Protein Albumin Prealbumin Triglycerides Cholesterol LDL Cholesterol Direct HDL Cholesterol 25-OH Vitamin D Total PTH Intact Urine pH Urine WBC (Auto) Urine Creatinine 54.8 H Urine Total Protein Fluid Total Protein Vancomycin Trough 2.3 L Rheumatoid Factor Complement C4 Miscellaneous Test Crossmatch 09/21/16 09/21/16 09/22/16 16:51 23:17 06:27 WBC RBC Hgb Hct MCV MCH MCHC RDW Plt Count Lymph % (Auto) Harper % (Auto) Lymph # Harper # Baso # Seg Neutrophils % Seg Neuts % (Manual) Lymphocytes % (Manual) Monocytes % (Manual) Eosinophils % (Manual) Basophils % (Manual) Nucleated RBC % Seg Neutrophils # Seg Neutrophils # Man Lymphocytes # (Manual) Monocytes # (Manual) Eosinophils # (Manual) Basophils # (Manual) PT INR Fibrinogen dRVVT Confirm Interp Factor V Activity POC ABG pH POC ABG pCO2 POC ABG pO2 ABG pO2 ABG HCO3 ABG Base Excess ABG Hemoglobin Oxyhemoglobin Sodium Potassium Chloride Carbon Dioxide BUN Creatinine Glucose POC Glucose 206 H 114 H 115 H Lactic Acid Calcium Ionized Calcium Phosphorus Magnesium Direct Bilirubin AST ALT Alkaline Phosphatase Lactate Dehydrogenase Troponin T C-Reactive Protein Total Protein Albumin Prealbumin Triglycerides Cholesterol LDL Cholesterol Direct HDL Cholesterol 25-OH Vitamin D Total PTH Intact Urine pH Urine WBC (Auto) Urine Creatinine Urine Total Protein Fluid Total Protein Vancomycin Trough Rheumatoid Factor Complement C4 Miscellaneous Test Crossmatch 09/22/16 09/22/16 09/22/16 07:50 07:50 12:00 WBC 17.8 H RBC 3.04 L Hgb 8.0 L Hct 24.7 L MCV MCH 26 L MCHC RDW 21.6 H Plt Count Lymph % (Auto) Harper % (Auto) Lymph # Harper # Baso # Seg Neutrophils % Seg Neuts % (Manual) Lymphocytes % (Manual) Monocytes % (Manual) Eosinophils % (Manual) Basophils % (Manual) Nucleated RBC % Seg Neutrophils # Seg Neutrophils # Man Lymphocytes # (Manual) Monocytes # (Manual) Eosinophils # (Manual) Basophils # (Manual) PT INR Fibrinogen dRVVT Confirm Interp Factor V Activity POC ABG pH POC ABG pCO2 POC ABG pO2 ABG pO2 ABG HCO3 ABG Base Excess ABG Hemoglobin Oxyhemoglobin Sodium 150 H Potassium Chloride 118.2 H Carbon Dioxide 14 L BUN 111 H Creatinine 3.7 H Glucose 157 H POC Glucose 183 H Lactic Acid Calcium Ionized Calcium Phosphorus Magnesium Direct Bilirubin AST ALT Alkaline Phosphatase Lactate Dehydrogenase Troponin T C-Reactive Protein Total Protein Albumin Prealbumin Triglycerides Cholesterol LDL Cholesterol Direct HDL Cholesterol 25-OH Vitamin D Total PTH Intact Urine pH Urine WBC (Auto) Urine Creatinine Urine Total Protein Fluid Total Protein Vancomycin Trough Rheumatoid Factor Complement C4 Miscellaneous Test Crossmatch 09/22/16 09/22/16 09/23/16 17:29 23:10 05:00 WBC 19.2 H RBC 3.13 L Hgb 8.0 L Hct 25.2 L MCV MCH 26 L MCHC RDW 22.1 H Plt Count Lymph % (Auto) Harper % (Auto) Lymph # Harper # Baso # Seg Neutrophils % Seg Neuts % (Manual) 92.0 H Lymphocytes % (Manual) 3.0 L Monocytes % (Manual) Eosinophils % (Manual) Basophils % (Manual) Nucleated RBC % Seg Neutrophils # Seg Neutrophils # Man 17.7 H Lymphocytes # (Manual) 0.6 L Monocytes # (Manual) Eosinophils # (Manual) Basophils # (Manual) PT INR Fibrinogen dRVVT Confirm Interp Factor V Activity POC ABG pH POC ABG pCO2 POC ABG pO2 ABG pO2 ABG HCO3 ABG Base Excess ABG Hemoglobin Oxyhemoglobin Sodium Potassium Chloride Carbon Dioxide BUN Creatinine Glucose POC Glucose 197 H 169 H Lactic Acid Calcium Ionized Calcium Phosphorus Magnesium Direct Bilirubin AST ALT Alkaline Phosphatase Lactate Dehydrogenase Troponin T C-Reactive Protein Total Protein Albumin Prealbumin Triglycerides Cholesterol LDL Cholesterol Direct HDL Cholesterol 25-OH Vitamin D Total PTH Intact Urine pH Urine WBC (Auto) Urine Creatinine Urine Total Protein Fluid Total Protein Vancomycin Trough Rheumatoid Factor Complement C4 Miscellaneous Test Crossmatch 09/23/16 09/23/16 09/23/16 05:00 05:00 05:10 WBC RBC Hgb Hct MCV MCH MCHC RDW Plt Count Lymph % (Auto) Harper % (Auto) Lymph # Harper # Baso # Seg Neutrophils % Seg Neuts % (Manual) Lymphocytes % (Manual) Monocytes % (Manual) Eosinophils % (Manual) Basophils % (Manual) Nucleated RBC % Seg Neutrophils # Seg Neutrophils # Man Lymphocytes # (Manual) Monocytes # (Manual) Eosinophils # (Manual) Basophils # (Manual) PT INR Fibrinogen dRVVT Confirm Interp Factor V Activity POC ABG pH POC ABG pCO2 POC ABG pO2 ABG pO2 ABG HCO3 ABG Base Excess ABG Hemoglobin Oxyhemoglobin Sodium 147 H Potassium 3.2 L Chloride 115.7 H Carbon Dioxide 13 L BUN 111 H Creatinine 3.8 H Glucose 194 H POC Glucose 188 H Lactic Acid Calcium 7.3 L D Ionized Calcium Phosphorus Magnesium Direct Bilirubin AST ALT Alkaline Phosphatase Lactate Dehydrogenase Troponin T C-Reactive Protein 3.20 H Total Protein Albumin Prealbumin Triglycerides Cholesterol LDL Cholesterol Direct HDL Cholesterol 25-OH Vitamin D Total PTH Intact Urine pH Urine WBC (Auto) Urine Creatinine Urine Total Protein Fluid Total Protein Vancomycin Trough Rheumatoid Factor Complement C4 Miscellaneous Test Crossmatch 09/23/16 09/23/16 09/23/16 11:37 12:29 18:01 WBC RBC Hgb Hct MCV MCH MCHC RDW Plt Count Lymph % (Auto) Harper % (Auto) Lymph # Harper # Baso # Seg Neutrophils % Seg Neuts % (Manual) Lymphocytes % (Manual) Monocytes % (Manual) Eosinophils % (Manual) Basophils % (Manual) Nucleated RBC % Seg Neutrophils # Seg Neutrophils # Man Lymphocytes # (Manual) Monocytes # (Manual) Eosinophils # (Manual) Basophils # (Manual) PT INR Fibrinogen dRVVT Confirm Interp Factor V Activity POC ABG pH POC ABG pCO2 18.9 L POC ABG pO2 143 H ABG pO2 ABG HCO3 ABG Base Excess ABG Hemoglobin Oxyhemoglobin Sodium Potassium Chloride Carbon Dioxide BUN Creatinine Glucose POC Glucose 153 H 108 H Lactic Acid Calcium Ionized Calcium Phosphorus Magnesium Direct Bilirubin AST ALT Alkaline Phosphatase Lactate Dehydrogenase Troponin T C-Reactive Protein Total Protein Albumin Prealbumin Triglycerides Cholesterol LDL Cholesterol Direct HDL Cholesterol 25-OH Vitamin D Total PTH Intact Urine pH Urine WBC (Auto) Urine Creatinine Urine Total Protein Fluid Total Protein Vancomycin Trough Rheumatoid Factor Complement C4 Miscellaneous Test Crossmatch 09/23/16 09/23/16 09/24/16 21:19 23:43 05:16 WBC RBC Hgb Hct MCV MCH MCHC RDW Plt Count Lymph % (Auto) Harper % (Auto) Lymph # Harper # Baso # Seg Neutrophils % Seg Neuts % (Manual) Lymphocytes % (Manual) Monocytes % (Manual) Eosinophils % (Manual) Basophils % (Manual) Nucleated RBC % Seg Neutrophils # Seg Neutrophils # Man Lymphocytes # (Manual) Monocytes # (Manual) Eosinophils # (Manual) Basophils # (Manual) PT INR Fibrinogen dRVVT Confirm Interp Factor V Activity POC ABG pH POC ABG pCO2 17.3 L POC ABG pO2 112 H ABG pO2 ABG HCO3 ABG Base Excess ABG Hemoglobin Oxyhemoglobin Sodium Potassium Chloride Carbon Dioxide BUN Creatinine Glucose POC Glucose 143 H 164 H Lactic Acid Calcium Ionized Calcium Phosphorus Magnesium Direct Bilirubin AST ALT Alkaline Phosphatase Lactate Dehydrogenase Troponin T C-Reactive Protein Total Protein Albumin Prealbumin Triglycerides Cholesterol LDL Cholesterol Direct HDL Cholesterol 25-OH Vitamin D Total PTH Intact Urine pH Urine WBC (Auto) Urine Creatinine Urine Total Protein Fluid Total Protein Vancomycin Trough Rheumatoid Factor Complement C4 Miscellaneous Test Crossmatch 09/24/16 09/24/16 09/24/16 05:21 11:58 17:06 WBC RBC Hgb Hct MCV MCH MCHC RDW Plt Count Lymph % (Auto) Harper % (Auto) Lymph # Harper # Baso # Seg Neutrophils % Seg Neuts % (Manual) Lymphocytes % (Manual) Monocytes % (Manual) Eosinophils % (Manual) Basophils % (Manual) Nucleated RBC % Seg Neutrophils # Seg Neutrophils # Man Lymphocytes # (Manual) Monocytes # (Manual) Eosinophils # (Manual) Basophils # (Manual) PT INR Fibrinogen dRVVT Confirm Interp Factor V Activity POC ABG pH POC ABG pCO2 POC ABG pO2 ABG pO2 ABG HCO3 ABG Base Excess ABG Hemoglobin Oxyhemoglobin Sodium Potassium Chloride Carbon Dioxide 10 L BUN 103 H Creatinine 4.3 H Glucose 163 H POC Glucose 173 H 167 H Lactic Acid Calcium 6.5 L Ionized Calcium Phosphorus Magnesium Direct Bilirubin AST ALT Alkaline Phosphatase Lactate Dehydrogenase Troponin T C-Reactive Protein Total Protein Albumin Prealbumin Triglycerides Cholesterol LDL Cholesterol Direct HDL Cholesterol 25-OH Vitamin D Total PTH Intact Urine pH Urine WBC (Auto) Urine Creatinine Urine Total Protein Fluid Total Protein Vancomycin Trough Rheumatoid Factor Complement C4 Miscellaneous Test Crossmatch 09/24/16 09/24/16 09/24/16 20:15 21:02 23:48 WBC RBC Hgb Hct MCV MCH MCHC RDW Plt Count Lymph % (Auto) Harper % (Auto) Lymph # Harper # Baso # Seg Neutrophils % Seg Neuts % (Manual) Lymphocytes % (Manual) Monocytes % (Manual) Eosinophils % (Manual) Basophils % (Manual) Nucleated RBC % Seg Neutrophils # Seg Neutrophils # Man Lymphocytes # (Manual) Monocytes # (Manual) Eosinophils # (Manual) Basophils # (Manual) PT INR Fibrinogen dRVVT Confirm Interp Factor V Activity POC ABG pH 7.288 L POC ABG pCO2 30.2 L 21.5 L POC ABG pO2 32 L 39 L ABG pO2 ABG HCO3 ABG Base Excess ABG Hemoglobin Oxyhemoglobin Sodium Potassium Chloride Carbon Dioxide BUN Creatinine Glucose POC Glucose 109 H Lactic Acid Calcium Ionized Calcium Phosphorus Magnesium Direct Bilirubin AST ALT Alkaline Phosphatase Lactate Dehydrogenase Troponin T C-Reactive Protein Total Protein Albumin Prealbumin Triglycerides Cholesterol LDL Cholesterol Direct HDL Cholesterol 25-OH Vitamin D Total PTH Intact Urine pH Urine WBC (Auto) Urine Creatinine Urine Total Protein Fluid Total Protein Vancomycin Trough Rheumatoid Factor Complement C4 Miscellaneous Test Crossmatch 09/25/16 09/25/16 09/25/16 04:20 04:20 04:20 WBC RBC 2.58 L Hgb 7.0 L Hct 21.0 L MCV MCH 27 L MCHC RDW 23.8 H Plt Count Lymph % (Auto) Harper % (Auto) Lymph # Harper # Baso # Seg Neutrophils % Seg Neuts % (Manual) Lymphocytes % (Manual) 12.0 L Monocytes % (Manual) Eosinophils % (Manual) 7.0 H Basophils % (Manual) 2.0 H Nucleated RBC % Seg Neutrophils # Seg Neutrophils # Man Lymphocytes # (Manual) 0.9 L Monocytes # (Manual) Eosinophils # (Manual) 0.5 H Basophils # (Manual) PT INR Fibrinogen dRVVT Confirm Interp Factor V Activity POC ABG pH POC ABG pCO2 POC ABG pO2 ABG pO2 ABG HCO3 ABG Base Excess ABG Hemoglobin Oxyhemoglobin Sodium Potassium Chloride Carbon Dioxide 15 L BUN 72 H Creatinine 3.8 H Glucose POC Glucose Lactic Acid Calcium 6.0 L Ionized Calcium Phosphorus 4.60 H Magnesium 1.60 L Direct Bilirubin AST ALT Alkaline Phosphatase Lactate Dehydrogenase Troponin T C-Reactive Protein Total Protein Albumin Prealbumin Triglycerides Cholesterol LDL Cholesterol Direct HDL Cholesterol 25-OH Vitamin D Total PTH Intact Urine pH Urine WBC (Auto) Urine Creatinine Urine Total Protein Fluid Total Protein Vancomycin Trough Rheumatoid Factor Complement C4 Miscellaneous Test Crossmatch 09/25/16 09/25/16 09/25/16 04:57 08:02 10:30 WBC RBC Hgb Hct MCV MCH MCHC RDW Plt Count Lymph % (Auto) Harper % (Auto) Lymph # Harper # Baso # Seg Neutrophils % Seg Neuts % (Manual) Lymphocytes % (Manual) Monocytes % (Manual) Eosinophils % (Manual) Basophils % (Manual) Nucleated RBC % Seg Neutrophils # Seg Neutrophils # Man Lymphocytes # (Manual) Monocytes # (Manual) Eosinophils # (Manual) Basophils # (Manual) PT INR Fibrinogen dRVVT Confirm Interp Factor V Activity POC ABG pH POC ABG pCO2 24.7 L POC ABG pO2 152 H ABG pO2 ABG HCO3 ABG Base Excess ABG Hemoglobin Oxyhemoglobin Sodium Potassium Chloride Carbon Dioxide BUN Creatinine Glucose POC Glucose 113 H Lactic Acid Calcium Ionized Calcium Phosphorus Magnesium Direct Bilirubin AST ALT Alkaline Phosphatase Lactate Dehydrogenase Troponin T C-Reactive Protein Total Protein Albumin Prealbumin Triglycerides Cholesterol LDL Cholesterol Direct HDL Cholesterol 25-OH Vitamin D Total PTH Intact Urine pH Urine WBC (Auto) Urine Creatinine Urine Total Protein Fluid Total Protein Vancomycin Trough Rheumatoid Factor Complement C4 Miscellaneous Test Crossmatch See Detail 09/25/16 09/25/16 09/25/16 12:05 17:44 23:47 WBC RBC Hgb Hct MCV MCH MCHC RDW Plt Count Lymph % (Auto) Harper % (Auto) Lymph # Harper # Baso # Seg Neutrophils % Seg Neuts % (Manual) Lymphocytes % (Manual) Monocytes % (Manual) Eosinophils % (Manual) Basophils % (Manual) Nucleated RBC % Seg Neutrophils # Seg Neutrophils # Man Lymphocytes # (Manual) Monocytes # (Manual) Eosinophils # (Manual) Basophils # (Manual) PT INR Fibrinogen dRVVT Confirm Interp Factor V Activity POC ABG pH POC ABG pCO2 POC ABG pO2 ABG pO2 ABG HCO3 ABG Base Excess ABG Hemoglobin Oxyhemoglobin Sodium Potassium Chloride Carbon Dioxide BUN Creatinine Glucose POC Glucose 117 H 119 H 150 H Lactic Acid Calcium Ionized Calcium Phosphorus Magnesium Direct Bilirubin AST ALT Alkaline Phosphatase Lactate Dehydrogenase Troponin T C-Reactive Protein Total Protein Albumin Prealbumin Triglycerides Cholesterol LDL Cholesterol Direct HDL Cholesterol 25-OH Vitamin D Total PTH Intact Urine pH Urine WBC (Auto) Urine Creatinine Urine Total Protein Fluid Total Protein Vancomycin Trough Rheumatoid Factor Complement C4 Miscellaneous Test Crossmatch 09/26/16 09/26/16 09/26/16 04:25 04:25 04:25 WBC RBC 2.65 L Hgb 7.4 L Hct 21.6 L MCV MCH MCHC RDW 22.5 H Plt Count Lymph % (Auto) Harper % (Auto) Lymph # Harper # Baso # Seg Neutrophils % Seg Neuts % (Manual) Lymphocytes % (Manual) 6.0 L Monocytes % (Manual) Eosinophils % (Manual) 11.0 H Basophils % (Manual) Nucleated RBC % Seg Neutrophils # Seg Neutrophils # Man Lymphocytes # (Manual) 0.4 L Monocytes # (Manual) Eosinophils # (Manual) 0.6 H Basophils # (Manual) PT INR Fibrinogen dRVVT Confirm Interp Factor V Activity POC ABG pH POC ABG pCO2 POC ABG pO2 ABG pO2 ABG HCO3 ABG Base Excess ABG Hemoglobin Oxyhemoglobin Sodium Potassium Chloride 97.0 L Carbon Dioxide 19 L BUN 43 H Creatinine 2.6 H Glucose 130 H POC Glucose Lactic Acid 4.40 H* Calcium 6.7 L Ionized Calcium Phosphorus Magnesium Direct Bilirubin AST ALT Alkaline Phosphatase Lactate Dehydrogenase Troponin T C-Reactive Protein Total Protein Albumin Prealbumin Triglycerides Cholesterol LDL Cholesterol Direct HDL Cholesterol 25-OH Vitamin D Total PTH Intact Urine pH Urine WBC (Auto) Urine Creatinine Urine Total Protein Fluid Total Protein Vancomycin Trough Rheumatoid Factor Complement C4 Miscellaneous Test Crossmatch 09/26/16 09/26/16 09/26/16 05:20 11:44 12:12 WBC RBC Hgb Hct MCV MCH MCHC RDW Plt Count Lymph % (Auto) Harper % (Auto) Lymph # Harper # Baso # Seg Neutrophils % Seg Neuts % (Manual) Lymphocytes % (Manual) Monocytes % (Manual) Eosinophils % (Manual) Basophils % (Manual) Nucleated RBC % Seg Neutrophils # Seg Neutrophils # Man Lymphocytes # (Manual) Monocytes # (Manual) Eosinophils # (Manual) Basophils # (Manual) PT INR Fibrinogen dRVVT Confirm Interp Factor V Activity POC ABG pH POC ABG pCO2 27.0 L POC ABG pO2 69 L ABG pO2 ABG HCO3 ABG Base Excess ABG Hemoglobin Oxyhemoglobin Sodium Potassium Chloride Carbon Dioxide BUN Creatinine Glucose POC Glucose 121 H 128 H Lactic Acid Calcium Ionized Calcium Phosphorus Magnesium Direct Bilirubin AST ALT Alkaline Phosphatase Lactate Dehydrogenase Troponin T C-Reactive Protein Total Protein Albumin Prealbumin Triglycerides Cholesterol LDL Cholesterol Direct HDL Cholesterol 25-OH Vitamin D Total PTH Intact Urine pH Urine WBC (Auto) Urine Creatinine Urine Total Protein Fluid Total Protein Vancomycin Trough Rheumatoid Factor Complement C4 Miscellaneous Test Crossmatch 09/26/16 09/26/16 09/27/16 18:31 23:40 08:20 WBC RBC Hgb Hct MCV MCH MCHC RDW Plt Count Lymph % (Auto) Harper % (Auto) Lymph # Harper # Baso # Seg Neutrophils % Seg Neuts % (Manual) Lymphocytes % (Manual) Monocytes % (Manual) Eosinophils % (Manual) Basophils % (Manual) Nucleated RBC % Seg Neutrophils # Seg Neutrophils # Man Lymphocytes # (Manual) Monocytes # (Manual) Eosinophils # (Manual) Basophils # (Manual) PT INR Fibrinogen dRVVT Confirm Interp Factor V Activity POC ABG pH POC ABG pCO2 POC ABG pO2 ABG pO2 ABG HCO3 ABG Base Excess ABG Hemoglobin Oxyhemoglobin Sodium Potassium Chloride Carbon Dioxide BUN Creatinine Glucose POC Glucose 120 H 133 H Lactic Acid 4.10 H* Calcium Ionized Calcium Phosphorus Magnesium Direct Bilirubin AST ALT Alkaline Phosphatase Lactate Dehydrogenase Troponin T C-Reactive Protein Total Protein Albumin Prealbumin Triglycerides Cholesterol LDL Cholesterol Direct HDL Cholesterol 25-OH Vitamin D Total PTH Intact Urine pH Urine WBC (Auto) Urine Creatinine Urine Total Protein Fluid Total Protein Vancomycin Trough Rheumatoid Factor Complement C4 Miscellaneous Test Crossmatch 09/27/16 09/27/16 09/27/16 11:23 15:00 18:15 WBC RBC Hgb Hct MCV MCH MCHC RDW Plt Count Lymph % (Auto) Harper % (Auto) Lymph # Harper # Baso # Seg Neutrophils % Seg Neuts % (Manual) Lymphocytes % (Manual) Monocytes % (Manual) Eosinophils % (Manual) Basophils % (Manual) Nucleated RBC % Seg Neutrophils # Seg Neutrophils # Man Lymphocytes # (Manual) Monocytes # (Manual) Eosinophils # (Manual) Basophils # (Manual) PT INR Fibrinogen dRVVT Confirm Interp Factor V Activity POC ABG pH 7.459 H POC ABG pCO2 27.1 L POC ABG pO2 140 H ABG pO2 ABG HCO3 ABG Base Excess ABG Hemoglobin Oxyhemoglobin Sodium Potassium Chloride Carbon Dioxide BUN Creatinine Glucose POC Glucose 114 H 127 H Lactic Acid Calcium Ionized Calcium Phosphorus Magnesium Direct Bilirubin AST ALT Alkaline Phosphatase Lactate Dehydrogenase Troponin T C-Reactive Protein Total Protein Albumin Prealbumin Triglycerides Cholesterol LDL Cholesterol Direct HDL Cholesterol 25-OH Vitamin D Total PTH Intact Urine pH Urine WBC (Auto) Urine Creatinine Urine Total Protein Fluid Total Protein Vancomycin Trough Rheumatoid Factor Complement C4 Miscellaneous Test Crossmatch 09/27/16 09/27/16 09/28/16 Unknown Unknown 03:45 WBC RBC 2.49 L Hgb 6.8 L Hct 20.7 L MCV MCH 27 L MCHC RDW 22.1 H Plt Count Lymph % (Auto) Harper % (Auto) Lymph # Harper # Baso # Seg Neutrophils % Seg Neuts % (Manual) 32.0 L Lymphocytes % (Manual) 12.0 L Monocytes % (Manual) 11.0 H Eosinophils % (Manual) 10.0 H Basophils % (Manual) Nucleated RBC % Seg Neutrophils # Seg Neutrophils # Man Lymphocytes # (Manual) 1.0 L Monocytes # (Manual) 0.9 H Eosinophils # (Manual) 0.8 H Basophils # (Manual) PT INR Fibrinogen dRVVT Confirm Interp Factor V Activity POC ABG pH POC ABG pCO2 POC ABG pO2 ABG pO2 ABG HCO3 ABG Base Excess ABG Hemoglobin Oxyhemoglobin Sodium 135 L 135 L Potassium 3.5 L Chloride 93.6 L 94.4 L Carbon Dioxide 17 L 21 L BUN 45 H 28 H Creatinine 3.3 H 2.5 H Glucose 106 H POC Glucose Lactic Acid Calcium 7.3 L 7.1 L Ionized Calcium Phosphorus Magnesium Direct Bilirubin AST ALT Alkaline Phosphatase Lactate Dehydrogenase Troponin T C-Reactive Protein Total Protein Albumin Prealbumin Triglycerides Cholesterol LDL Cholesterol Direct HDL Cholesterol 25-OH Vitamin D Total PTH Intact Urine pH Urine WBC (Auto) Urine Creatinine Urine Total Protein Fluid Total Protein Vancomycin Trough Rheumatoid Factor Complement C4 Miscellaneous Test Crossmatch 09/28/16 09/28/16 09/28/16 03:45 07:25 11:58 WBC 13.3 H RBC 3.01 L Hgb 8.4 L Hct 25.0 L MCV MCH MCHC RDW 20.5 H Plt Count 128 L Lymph % (Auto) Harper % (Auto) Lymph # Harper # Baso # Seg Neutrophils % Seg Neuts % (Manual) Lymphocytes % (Manual) 7.0 L Monocytes % (Manual) Eosinophils % (Manual) 6.0 H Basophils % (Manual) Nucleated RBC % Seg Neutrophils # Seg Neutrophils # Man Lymphocytes # (Manual) 0.9 L Monocytes # (Manual) Eosinophils # (Manual) 0.8 H Basophils # (Manual) PT INR Fibrinogen dRVVT Confirm Interp Factor V Activity POC ABG pH POC ABG pCO2 POC ABG pO2 ABG pO2 ABG HCO3 ABG Base Excess ABG Hemoglobin Oxyhemoglobin Sodium Potassium Chloride Carbon Dioxide BUN Creatinine Glucose POC Glucose 121 H Lactic Acid 4.50 H* Calcium Ionized Calcium Phosphorus Magnesium Direct Bilirubin AST ALT Alkaline Phosphatase Lactate Dehydrogenase Troponin T C-Reactive Protein Total Protein Albumin Prealbumin Triglycerides Cholesterol LDL Cholesterol Direct HDL Cholesterol 25-OH Vitamin D Total PTH Intact Urine pH Urine WBC (Auto) Urine Creatinine Urine Total Protein Fluid Total Protein Vancomycin Trough Rheumatoid Factor Complement C4 Miscellaneous Test Crossmatch 09/29/16 09/29/16 09/29/16 06:45 06:45 06:45 WBC 14.9 H RBC 2.74 L Hgb 7.6 L Hct 23.2 L MCV MCH MCHC RDW 20.5 H Plt Count 81 L Lymph % (Auto) Harper % (Auto) Lymph # Harper # Baso # Seg Neutrophils % Seg Neuts % (Manual) 81.0 H Lymphocytes % (Manual) 4.0 L Monocytes % (Manual) Eosinophils % (Manual) Basophils % (Manual) Nucleated RBC % Seg Neutrophils # Seg Neutrophils # Man 12.1 H Lymphocytes # (Manual) 0.6 L Monocytes # (Manual) Eosinophils # (Manual) Basophils # (Manual) PT INR Fibrinogen dRVVT Confirm Interp Factor V Activity POC ABG pH POC ABG pCO2 POC ABG pO2 ABG pO2 ABG HCO3 ABG Base Excess ABG Hemoglobin Oxyhemoglobin Sodium 133 L Potassium 3.4 L Chloride 92.5 L Carbon Dioxide 21 L BUN 33 H Creatinine 3.0 H Glucose POC Glucose Lactic Acid Calcium 6.6 L Ionized Calcium Phosphorus Magnesium 1.40 L Direct Bilirubin 0.9 H AST ALT Alkaline Phosphatase Lactate Dehydrogenase Troponin T C-Reactive Protein Total Protein 4.3 L Albumin 1.3 L Prealbumin Triglycerides Cholesterol LDL Cholesterol Direct HDL Cholesterol 25-OH Vitamin D Total PTH Intact Urine pH Urine WBC (Auto) Urine Creatinine Urine Total Protein Fluid Total Protein Vancomycin Trough Rheumatoid Factor Complement C4 Miscellaneous Test Crossmatch 09/29/16 09/29/16 09/30/16 17:52 20:12 00:07 WBC RBC Hgb Hct MCV MCH MCHC RDW Plt Count Lymph % (Auto) Harper % (Auto) Lymph # Harper # Baso # Seg Neutrophils % Seg Neuts % (Manual) Lymphocytes % (Manual) Monocytes % (Manual) Eosinophils % (Manual) Basophils % (Manual) Nucleated RBC % Seg Neutrophils # Seg Neutrophils # Man Lymphocytes # (Manual) Monocytes # (Manual) Eosinophils # (Manual) Basophils # (Manual) PT INR Fibrinogen dRVVT Confirm Interp Factor V Activity POC ABG pH POC ABG pCO2 POC ABG pO2 ABG pO2 ABG HCO3 ABG Base Excess ABG Hemoglobin Oxyhemoglobin Sodium Potassium Chloride Carbon Dioxide BUN Creatinine Glucose POC Glucose 50 L 51 L Lactic Acid Calcium Ionized Calcium Phosphorus Magnesium Direct Bilirubin AST ALT Alkaline Phosphatase Lactate Dehydrogenase Troponin T 0.204 H* C-Reactive Protein Total Protein Albumin Prealbumin Triglycerides Cholesterol 31 L LDL Cholesterol Direct 4 L HDL Cholesterol 3 L 25-OH Vitamin D Total PTH Intact Urine pH Urine WBC (Auto) Urine Creatinine Urine Total Protein Fluid Total Protein Vancomycin Trough Rheumatoid Factor Complement C4 Miscellaneous Test Crossmatch 09/30/16 09/30/16 09/30/16 01:30 05:15 06:10 WBC RBC Hgb Hct MCV MCH MCHC RDW Plt Count Lymph % (Auto) Harper % (Auto) Lymph # Harper # Baso # Seg Neutrophils % Seg Neuts % (Manual) Lymphocytes % (Manual) Monocytes % (Manual) Eosinophils % (Manual) Basophils % (Manual) Nucleated RBC % Seg Neutrophils # Seg Neutrophils # Man Lymphocytes # (Manual) Monocytes # (Manual) Eosinophils # (Manual) Basophils # (Manual) PT INR Fibrinogen dRVVT Confirm Interp Factor V Activity POC ABG pH POC ABG pCO2 POC ABG pO2 ABG pO2 ABG HCO3 ABG Base Excess ABG Hemoglobin Oxyhemoglobin Sodium 133 L Potassium 3.2 L Chloride 93.2 L Carbon Dioxide 19 L BUN 36 H Creatinine 3.2 H Glucose 104 H POC Glucose 167 H 146 H Lactic Acid Calcium 6.4 L Ionized Calcium Phosphorus Magnesium 1.60 L Direct Bilirubin AST ALT Alkaline Phosphatase Lactate Dehydrogenase Troponin T C-Reactive Protein Total Protein Albumin Prealbumin Triglycerides Cholesterol LDL Cholesterol Direct HDL Cholesterol 25-OH Vitamin D Total PTH Intact Urine pH Urine WBC (Auto) Urine Creatinine Urine Total Protein Fluid Total Protein Vancomycin Trough Rheumatoid Factor Complement C4 Miscellaneous Test Crossmatch 09/30/16 09/30/16 09/30/16 11:26 13:39 18:38 WBC RBC Hgb Hct MCV MCH MCHC RDW Plt Count Lymph % (Auto) Harper % (Auto) Lymph # Harper # Baso # Seg Neutrophils % Seg Neuts % (Manual) Lymphocytes % (Manual) Monocytes % (Manual) Eosinophils % (Manual) Basophils % (Manual) Nucleated RBC % Seg Neutrophils # Seg Neutrophils # Man Lymphocytes # (Manual) Monocytes # (Manual) Eosinophils # (Manual) Basophils # (Manual) PT INR Fibrinogen dRVVT Confirm Interp Factor V Activity POC ABG pH 7.479 H POC ABG pCO2 29.8 L POC ABG pO2 117 H ABG pO2 ABG HCO3 ABG Base Excess ABG Hemoglobin Oxyhemoglobin Sodium Potassium Chloride Carbon Dioxide BUN Creatinine Glucose POC Glucose 140 H 122 H Lactic Acid Calcium Ionized Calcium Phosphorus Magnesium Direct Bilirubin AST ALT Alkaline Phosphatase Lactate Dehydrogenase Troponin T C-Reactive Protein Total Protein Albumin Prealbumin Triglycerides Cholesterol LDL Cholesterol Direct HDL Cholesterol 25-OH Vitamin D Total PTH Intact Urine pH Urine WBC (Auto) Urine Creatinine Urine Total Protein Fluid Total Protein Vancomycin Trough Rheumatoid Factor Complement C4 Miscellaneous Test Crossmatch 10/01/16 10/01/16 10/01/16 06:00 06:00 12:37 WBC 12.6 H RBC 2.75 L Hgb 7.3 L Hct 23.3 L MCV MCH 27 L MCHC RDW 20.6 H Plt Count 72 L Lymph % (Auto) Harper % (Auto) Lymph # Harper # Baso # Seg Neutrophils % Seg Neuts % (Manual) 31.0 L Lymphocytes % (Manual) 8.0 L Monocytes % (Manual) Eosinophils % (Manual) Basophils % (Manual) Nucleated RBC % 3.0 H Seg Neutrophils # Seg Neutrophils # Man Lymphocytes # (Manual) 1.0 L Monocytes # (Manual) Eosinophils # (Manual) Basophils # (Manual) PT INR Fibrinogen dRVVT Confirm Interp Factor V Activity POC ABG pH POC ABG pCO2 POC ABG pO2 ABG pO2 ABG HCO3 ABG Base Excess ABG Hemoglobin Oxyhemoglobin Sodium 127 L Potassium Chloride 86.8 L Carbon Dioxide 20 L BUN 42 H Creatinine 3.5 H Glucose POC Glucose 65 L Lactic Acid Calcium 7.0 L Ionized Calcium Phosphorus Magnesium Direct Bilirubin AST ALT Alkaline Phosphatase Lactate Dehydrogenase Troponin T C-Reactive Protein Total Protein Albumin Prealbumin Triglycerides Cholesterol LDL Cholesterol Direct HDL Cholesterol 25-OH Vitamin D Total PTH Intact Urine pH Urine WBC (Auto) Urine Creatinine Urine Total Protein Fluid Total Protein Vancomycin Trough Rheumatoid Factor Complement C4 Miscellaneous Test Crossmatch 10/01/16 10/01/16 10/02/16 17:39 23:32 00:59 WBC RBC Hgb Hct MCV MCH MCHC RDW Plt Count Lymph % (Auto) Harper % (Auto) Lymph # Harper # Baso # Seg Neutrophils % Seg Neuts % (Manual) Lymphocytes % (Manual) Monocytes % (Manual) Eosinophils % (Manual) Basophils % (Manual) Nucleated RBC % Seg Neutrophils # Seg Neutrophils # Man Lymphocytes # (Manual) Monocytes # (Manual) Eosinophils # (Manual) Basophils # (Manual) PT INR Fibrinogen dRVVT Confirm Interp Factor V Activity POC ABG pH POC ABG pCO2 POC ABG pO2 ABG pO2 ABG HCO3 ABG Base Excess ABG Hemoglobin Oxyhemoglobin Sodium Potassium Chloride Carbon Dioxide BUN Creatinine Glucose POC Glucose 107 H 52 L 145 H Lactic Acid Calcium Ionized Calcium Phosphorus Magnesium Direct Bilirubin AST ALT Alkaline Phosphatase Lactate Dehydrogenase Troponin T C-Reactive Protein Total Protein Albumin Prealbumin Triglycerides Cholesterol LDL Cholesterol Direct HDL Cholesterol 25-OH Vitamin D Total PTH Intact Urine pH Urine WBC (Auto) Urine Creatinine Urine Total Protein Fluid Total Protein Vancomycin Trough Rheumatoid Factor Complement C4 Miscellaneous Test Crossmatch 10/02/16 10/02/16 10/02/16 10:30 10:50 10:50 WBC 14.7 H RBC 2.76 L Hgb 7.4 L Hct 23.6 L MCV MCH 27 L MCHC RDW 20.2 H Plt Count 79 L Lymph % (Auto) Harper % (Auto) Lymph # Harper # Baso # Seg Neutrophils % Seg Neuts % (Manual) 86.0 H Lymphocytes % (Manual) 6.0 L Monocytes % (Manual) Eosinophils % (Manual) Basophils % (Manual) Nucleated RBC % Seg Neutrophils # Seg Neutrophils # Man 12.6 H Lymphocytes # (Manual) 0.9 L Monocytes # (Manual) Eosinophils # (Manual) Basophils # (Manual) PT INR Fibrinogen dRVVT Confirm Interp Factor V Activity POC ABG pH 7.486 H POC ABG pCO2 30.1 L POC ABG pO2 108 H ABG pO2 ABG HCO3 ABG Base Excess ABG Hemoglobin Oxyhemoglobin Sodium 131 L Potassium 3.4 L Chloride 89.9 L Carbon Dioxide BUN 26 H Creatinine 2.6 H Glucose POC Glucose Lactic Acid Calcium 7.0 L Ionized Calcium Phosphorus Magnesium Direct Bilirubin AST ALT Alkaline Phosphatase Lactate Dehydrogenase Troponin T C-Reactive Protein Total Protein Albumin Prealbumin Triglycerides Cholesterol LDL Cholesterol Direct HDL Cholesterol 25-OH Vitamin D Total PTH Intact Urine pH Urine WBC (Auto) Urine Creatinine Urine Total Protein Fluid Total Protein Vancomycin Trough Rheumatoid Factor Complement C4 Miscellaneous Test Crossmatch 10/02/16 10/03/16 10/03/16 23:45 00:45 05:10 WBC 12.9 H RBC 2.77 L Hgb 7.6 L Hct 23.7 L MCV MCH 27 L MCHC RDW 19.7 H Plt Count 89 L Lymph % (Auto) Harper % (Auto) Lymph # Harper # Baso # Seg Neutrophils % Seg Neuts % (Manual) Lymphocytes % (Manual) 8.0 L Monocytes % (Manual) Eosinophils % (Manual) Basophils % (Manual) Nucleated RBC % Seg Neutrophils # 11.9 H Seg Neutrophils # Man Lymphocytes # (Manual) 1.0 L Monocytes # (Manual) Eosinophils # (Manual) Basophils # (Manual) PT INR Fibrinogen dRVVT Confirm Interp Factor V Activity POC ABG pH POC ABG pCO2 POC ABG pO2 ABG pO2 ABG HCO3 ABG Base Excess ABG Hemoglobin Oxyhemoglobin Sodium Potassium Chloride Carbon Dioxide BUN Creatinine Glucose POC Glucose 55 L 199 H Lactic Acid Calcium Ionized Calcium Phosphorus Magnesium Direct Bilirubin AST ALT Alkaline Phosphatase Lactate Dehydrogenase Troponin T C-Reactive Protein Total Protein Albumin Prealbumin Triglycerides Cholesterol LDL Cholesterol Direct HDL Cholesterol 25-OH Vitamin D Total PTH Intact Urine pH Urine WBC (Auto) Urine Creatinine Urine Total Protein Fluid Total Protein Vancomycin Trough Rheumatoid Factor Complement C4 Miscellaneous Test Crossmatch 10/03/16 10/03/16 10/03/16 05:10 12:14 13:18 WBC RBC Hgb Hct MCV MCH MCHC RDW Plt Count Lymph % (Auto) Harper % (Auto) Lymph # Harper # Baso # Seg Neutrophils % Seg Neuts % (Manual) Lymphocytes % (Manual) Monocytes % (Manual) Eosinophils % (Manual) Basophils % (Manual) Nucleated RBC % Seg Neutrophils # Seg Neutrophils # Man Lymphocytes # (Manual) Monocytes # (Manual) Eosinophils # (Manual) Basophils # (Manual) PT INR Fibrinogen dRVVT Confirm Interp Factor V Activity POC ABG pH POC ABG pCO2 POC ABG pO2 ABG pO2 ABG HCO3 ABG Base Excess ABG Hemoglobin Oxyhemoglobin Sodium 129 L Potassium 3.3 L Chloride 88.8 L Carbon Dioxide 20 L BUN 29 H Creatinine 2.8 H Glucose POC Glucose 68 L 127 H Lactic Acid Calcium 7.2 L Ionized Calcium Phosphorus Magnesium Direct Bilirubin AST ALT Alkaline Phosphatase Lactate Dehydrogenase Troponin T C-Reactive Protein Total Protein Albumin Prealbumin Triglycerides Cholesterol LDL Cholesterol Direct HDL Cholesterol 25-OH Vitamin D Total PTH Intact Urine pH Urine WBC (Auto) Urine Creatinine Urine Total Protein Fluid Total Protein Vancomycin Trough Rheumatoid Factor Complement C4 Miscellaneous Test Crossmatch 10/03/16 10/03/16 10/03/16 14:42 18:21 19:09 WBC RBC Hgb Hct MCV MCH MCHC RDW Plt Count Lymph % (Auto) Harper % (Auto) Lymph # Harper # Baso # Seg Neutrophils % Seg Neuts % (Manual) Lymphocytes % (Manual) Monocytes % (Manual) Eosinophils % (Manual) Basophils % (Manual) Nucleated RBC % Seg Neutrophils # Seg Neutrophils # Man Lymphocytes # (Manual) Monocytes # (Manual) Eosinophils # (Manual) Basophils # (Manual) PT INR Fibrinogen dRVVT Confirm Interp Factor V Activity POC ABG pH 7.499 H POC ABG pCO2 28.4 L POC ABG pO2 44 L ABG pO2 ABG HCO3 ABG Base Excess ABG Hemoglobin Oxyhemoglobin Sodium Potassium Chloride Carbon Dioxide BUN Creatinine Glucose POC Glucose 64 L 205 H Lactic Acid Calcium Ionized Calcium Phosphorus Magnesium Direct Bilirubin AST ALT Alkaline Phosphatase Lactate Dehydrogenase Troponin T C-Reactive Protein Total Protein Albumin Prealbumin Triglycerides Cholesterol LDL Cholesterol Direct HDL Cholesterol 25-OH Vitamin D Total PTH Intact Urine pH Urine WBC (Auto) Urine Creatinine Urine Total Protein Fluid Total Protein Vancomycin Trough Rheumatoid Factor Complement C4 Miscellaneous Test Crossmatch 10/03/16 10/04/16 10/04/16 23:33 04:18 06:30 WBC RBC 2.54 L Hgb 7.1 L Hct 21.7 L MCV MCH MCHC RDW 19.5 H Plt Count 76 L Lymph % (Auto) Harper % (Auto) Lymph # Harper # Baso # Seg Neutrophils % Seg Neuts % (Manual) 88.0 H Lymphocytes % (Manual) 6.0 L Monocytes % (Manual) Eosinophils % (Manual) Basophils % (Manual) Nucleated RBC % Seg Neutrophils # Seg Neutrophils # Man 8.8 H Lymphocytes # (Manual) 0.6 L Monocytes # (Manual) Eosinophils # (Manual) Basophils # (Manual) PT INR Fibrinogen dRVVT Confirm Interp Factor V Activity POC ABG pH 7.461 H POC ABG pCO2 33.6 L POC ABG pO2 211 H ABG pO2 ABG HCO3 ABG Base Excess ABG Hemoglobin Oxyhemoglobin Sodium Potassium Chloride Carbon Dioxide BUN Creatinine Glucose POC Glucose 136 H Lactic Acid Calcium Ionized Calcium Phosphorus Magnesium Direct Bilirubin AST ALT Alkaline Phosphatase Lactate Dehydrogenase Troponin T C-Reactive Protein Total Protein Albumin Prealbumin Triglycerides Cholesterol LDL Cholesterol Direct HDL Cholesterol 25-OH Vitamin D Total PTH Intact Urine pH Urine WBC (Auto) Urine Creatinine Urine Total Protein Fluid Total Protein Vancomycin Trough Rheumatoid Factor Complement C4 Miscellaneous Test Crossmatch 10/04/16 10/04/16 10/04/16 06:30 11:45 17:54 WBC RBC Hgb Hct MCV MCH MCHC RDW Plt Count Lymph % (Auto) Harper % (Auto) Lymph # Harper # Baso # Seg Neutrophils % Seg Neuts % (Manual) Lymphocytes % (Manual) Monocytes % (Manual) Eosinophils % (Manual) Basophils % (Manual) Nucleated RBC % Seg Neutrophils # Seg Neutrophils # Man Lymphocytes # (Manual) Monocytes # (Manual) Eosinophils # (Manual) Basophils # (Manual) PT INR Fibrinogen dRVVT Confirm Interp Factor V Activity POC ABG pH POC ABG pCO2 POC ABG pO2 ABG pO2 ABG HCO3 ABG Base Excess ABG Hemoglobin Oxyhemoglobin Sodium 128 L Potassium Chloride 87.4 L Carbon Dioxide 20 L BUN 34 H Creatinine 2.9 H Glucose 127 H POC Glucose 158 H 160 H Lactic Acid Calcium 7.4 L Ionized Calcium Phosphorus Magnesium Direct Bilirubin AST ALT Alkaline Phosphatase Lactate Dehydrogenase Troponin T C-Reactive Protein Total Protein Albumin Prealbumin Triglycerides Cholesterol LDL Cholesterol Direct HDL Cholesterol 25-OH Vitamin D Total PTH Intact Urine pH Urine WBC (Auto) Urine Creatinine Urine Total Protein Fluid Total Protein Vancomycin Trough Rheumatoid Factor Complement C4 Miscellaneous Test Crossmatch 10/04/16 10/05/16 10/05/16 23:25 04:30 05:00 WBC RBC 2.64 L Hgb 7.5 L Hct 22.6 L MCV MCH MCHC RDW 19.3 H Plt Count 80 L Lymph % (Auto) Harper % (Auto) Lymph # Harper # Baso # Seg Neutrophils % Seg Neuts % (Manual) Lymphocytes % (Manual) 12.0 L Monocytes % (Manual) Eosinophils % (Manual) Basophils % (Manual) Nucleated RBC % Seg Neutrophils # Seg Neutrophils # Man Lymphocytes # (Manual) Monocytes # (Manual) Eosinophils # (Manual) Basophils # (Manual) PT INR Fibrinogen dRVVT Confirm Interp Factor V Activity POC ABG pH 7.475 H POC ABG pCO2 33.3 L POC ABG pO2 140 H ABG pO2 ABG HCO3 ABG Base Excess ABG Hemoglobin Oxyhemoglobin Sodium Potassium Chloride Carbon Dioxide BUN Creatinine Glucose POC Glucose 141 H Lactic Acid Calcium Ionized Calcium Phosphorus Magnesium Direct Bilirubin AST ALT Alkaline Phosphatase Lactate Dehydrogenase Troponin T C-Reactive Protein Total Protein Albumin Prealbumin Triglycerides Cholesterol LDL Cholesterol Direct HDL Cholesterol 25-OH Vitamin D Total PTH Intact Urine pH Urine WBC (Auto) Urine Creatinine Urine Total Protein Fluid Total Protein Vancomycin Trough Rheumatoid Factor Complement C4 Miscellaneous Test Crossmatch 10/05/16 10/05/16 10/05/16 05:00 05:09 12:58 WBC RBC Hgb Hct MCV MCH MCHC RDW Plt Count Lymph % (Auto) Harper % (Auto) Lymph # Harper # Baso # Seg Neutrophils % Seg Neuts % (Manual) Lymphocytes % (Manual) Monocytes % (Manual) Eosinophils % (Manual) Basophils % (Manual) Nucleated RBC % Seg Neutrophils # Seg Neutrophils # Man Lymphocytes # (Manual) Monocytes # (Manual) Eosinophils # (Manual) Basophils # (Manual) PT INR Fibrinogen dRVVT Confirm Interp Factor V Activity POC ABG pH POC ABG pCO2 POC ABG pO2 ABG pO2 ABG HCO3 ABG Base Excess ABG Hemoglobin Oxyhemoglobin Sodium 131 L Potassium Chloride 94.0 L Carbon Dioxide 20 L BUN 22 H Creatinine 2.0 H Glucose 123 H POC Glucose 166 H 179 H Lactic Acid Calcium 7.7 L Ionized Calcium Phosphorus 2.20 L D Magnesium Direct Bilirubin AST ALT Alkaline Phosphatase Lactate Dehydrogenase Troponin T C-Reactive Protein Total Protein Albumin Prealbumin Triglycerides Cholesterol LDL Cholesterol Direct HDL Cholesterol 25-OH Vitamin D Total PTH Intact Urine pH Urine WBC (Auto) Urine Creatinine Urine Total Protein Fluid Total Protein Vancomycin Trough Rheumatoid Factor Complement C4 Miscellaneous Test Crossmatch 10/05/16 10/05/16 10/05/16 15:50 18:53 23:12 WBC RBC Hgb Hct MCV MCH MCHC RDW Plt Count Lymph % (Auto) Harper % (Auto) Lymph # Harper # Baso # Seg Neutrophils % Seg Neuts % (Manual) Lymphocytes % (Manual) Monocytes % (Manual) Eosinophils % (Manual) Basophils % (Manual) Nucleated RBC % Seg Neutrophils # Seg Neutrophils # Man Lymphocytes # (Manual) Monocytes # (Manual) Eosinophils # (Manual) Basophils # (Manual) PT INR Fibrinogen dRVVT Confirm Interp Factor V Activity POC ABG pH POC ABG pCO2 POC ABG pO2 ABG pO2 ABG HCO3 ABG Base Excess ABG Hemoglobin Oxyhemoglobin Sodium Potassium Chloride Carbon Dioxide BUN Creatinine Glucose POC Glucose 150 H 164 H Lactic Acid Calcium Ionized Calcium Phosphorus Magnesium Direct Bilirubin AST ALT Alkaline Phosphatase Lactate Dehydrogenase Troponin T C-Reactive Protein Total Protein Albumin Prealbumin Triglycerides Cholesterol LDL Cholesterol Direct HDL Cholesterol 25-OH Vitamin D Total PTH Intact Urine pH Urine WBC (Auto) Urine Creatinine Urine Total Protein Fluid Total Protein Vancomycin Trough Rheumatoid Factor Complement C4 Miscellaneous Test Crossmatch See Detail 10/06/16 10/06/16 10/06/16 03:50 03:50 04:53 WBC RBC 3.00 L Hgb 8.6 L Hct 25.8 L MCV MCH MCHC RDW 17.9 H Plt Count 65 L Lymph % (Auto) Harper % (Auto) Lymph # Harper # Baso # Seg Neutrophils % Seg Neuts % (Manual) 30.0 L Lymphocytes % (Manual) 5.0 L Monocytes % (Manual) Eosinophils % (Manual) Basophils % (Manual) Nucleated RBC % Seg Neutrophils # Seg Neutrophils # Man Lymphocytes # (Manual) 0.4 L Monocytes # (Manual) Eosinophils # (Manual) Basophils # (Manual) PT INR Fibrinogen dRVVT Confirm Interp Factor V Activity POC ABG pH 7.310 L POC ABG pCO2 49.0 H POC ABG pO2 ABG pO2 ABG HCO3 ABG Base Excess ABG Hemoglobin Oxyhemoglobin Sodium 133 L Potassium Chloride 95.9 L Carbon Dioxide BUN 26 H Creatinine 2.0 H Glucose 116 H POC Glucose Lactic Acid Calcium 7.8 L Ionized Calcium Phosphorus Magnesium Direct Bilirubin AST ALT Alkaline Phosphatase Lactate Dehydrogenase Troponin T C-Reactive Protein Total Protein Albumin Prealbumin Triglycerides Cholesterol LDL Cholesterol Direct HDL Cholesterol 25-OH Vitamin D Total PTH Intact Urine pH Urine WBC (Auto) Urine Creatinine Urine Total Protein Fluid Total Protein Vancomycin Trough Rheumatoid Factor Complement C4 Miscellaneous Test Crossmatch 10/06/16 10/06/16 10/06/16 05:23 11:52 18:34 WBC RBC Hgb Hct MCV MCH MCHC RDW Plt Count Lymph % (Auto) Harper % (Auto) Lymph # Harper # Baso # Seg Neutrophils % Seg Neuts % (Manual) Lymphocytes % (Manual) Monocytes % (Manual) Eosinophils % (Manual) Basophils % (Manual) Nucleated RBC % Seg Neutrophils # Seg Neutrophils # Man Lymphocytes # (Manual) Monocytes # (Manual) Eosinophils # (Manual) Basophils # (Manual) PT INR Fibrinogen dRVVT Confirm Interp Factor V Activity POC ABG pH POC ABG pCO2 POC ABG pO2 ABG pO2 ABG HCO3 ABG Base Excess ABG Hemoglobin Oxyhemoglobin Sodium Potassium Chloride Carbon Dioxide BUN Creatinine Glucose POC Glucose 126 H 116 H 129 H Lactic Acid Calcium Ionized Calcium Phosphorus Magnesium Direct Bilirubin AST ALT Alkaline Phosphatase Lactate Dehydrogenase Troponin T C-Reactive Protein Total Protein Albumin Prealbumin Triglycerides Cholesterol LDL Cholesterol Direct HDL Cholesterol 25-OH Vitamin D Total PTH Intact Urine pH Urine WBC (Auto) Urine Creatinine Urine Total Protein Fluid Total Protein Vancomycin Trough Rheumatoid Factor Complement C4 Miscellaneous Test Crossmatch 10/07/16 10/07/16 10/07/16 03:45 05:00 10:00 WBC 17.0 H RBC 2.68 L Hgb 7.3 L Hct 25.3 L MCV MCH 27 L MCHC 29 L RDW 19.6 H Plt Count 74 L Lymph % (Auto) Harper % (Auto) Lymph # Harper # Baso # Seg Neutrophils % Seg Neuts % (Manual) Lymphocytes % (Manual) 12.0 L Monocytes % (Manual) Eosinophils % (Manual) Basophils % (Manual) Nucleated RBC % 4.0 H Seg Neutrophils # Seg Neutrophils # Man 10.7 H Lymphocytes # (Manual) Monocytes # (Manual) Eosinophils # (Manual) Basophils # (Manual) PT INR Fibrinogen dRVVT Confirm Interp Factor V Activity POC ABG pH POC ABG pCO2 POC ABG pO2 ABG pO2 ABG HCO3 ABG Base Excess ABG Hemoglobin Oxyhemoglobin Sodium 130 L Potassium 3.2 L Chloride 93.9 L Carbon Dioxide 20 L BUN 44 H Creatinine 2.7 H Glucose 129 H POC Glucose Lactic Acid Calcium 7.4 L Ionized Calcium Phosphorus Magnesium Direct Bilirubin AST ALT 6 L Alkaline Phosphatase 195 H Lactate Dehydrogenase Troponin T C-Reactive Protein Total Protein 4.9 L Albumin 1.0 L Prealbumin Triglycerides Cholesterol LDL Cholesterol Direct HDL Cholesterol 25-OH Vitamin D Total PTH Intact Urine pH Urine WBC (Auto) Urine Creatinine Urine Total Protein Fluid Total Protein Vancomycin Trough Rheumatoid Factor Complement C4 Miscellaneous Test Flexitest 1 H Crossmatch 10/07/16 10/07/16 10/07/16 10:00 11:24 18:10 WBC RBC Hgb Hct MCV MCH MCHC RDW Plt Count Lymph % (Auto) Harper % (Auto) Lymph # Harper # Baso # Seg Neutrophils % Seg Neuts % (Manual) Lymphocytes % (Manual) Monocytes % (Manual) Eosinophils % (Manual) Basophils % (Manual) Nucleated RBC % Seg Neutrophils # Seg Neutrophils # Man Lymphocytes # (Manual) Monocytes # (Manual) Eosinophils # (Manual) Basophils # (Manual) PT INR Fibrinogen dRVVT Confirm Interp Factor V Activity POC ABG pH POC ABG pCO2 POC ABG pO2 ABG pO2 ABG HCO3 ABG Base Excess ABG Hemoglobin Oxyhemoglobin Sodium Potassium Chloride Carbon Dioxide BUN Creatinine Glucose POC Glucose 116 H 130 H Lactic Acid Calcium Ionized Calcium Phosphorus Magnesium Direct Bilirubin AST ALT Alkaline Phosphatase Lactate Dehydrogenase Troponin T C-Reactive Protein 19.40 H Total Protein Albumin Prealbumin Triglycerides Cholesterol LDL Cholesterol Direct HDL Cholesterol 25-OH Vitamin D Total PTH Intact Urine pH Urine WBC (Auto) Urine Creatinine Urine Total Protein Fluid Total Protein Vancomycin Trough Rheumatoid Factor Complement C4 Miscellaneous Test Crossmatch 10/07/16 10/08/16 10/08/16 18:30 00:00 04:00 WBC RBC Hgb Hct MCV MCH MCHC RDW Plt Count Lymph % (Auto) Harper % (Auto) Lymph # Harper # Baso # Seg Neutrophils % Seg Neuts % (Manual) Lymphocytes % (Manual) Monocytes % (Manual) Eosinophils % (Manual) Basophils % (Manual) Nucleated RBC % Seg Neutrophils # Seg Neutrophils # Man Lymphocytes # (Manual) Monocytes # (Manual) Eosinophils # (Manual) Basophils # (Manual) PT INR Fibrinogen dRVVT Confirm Interp Factor V Activity POC ABG pH POC ABG pCO2 POC ABG pO2 ABG pO2 ABG HCO3 ABG Base Excess ABG Hemoglobin Oxyhemoglobin Sodium 132 L Potassium 3.3 L Chloride 93.6 L Carbon Dioxide 17 L BUN 59 H Creatinine 2.7 H Glucose 121 H POC Glucose 122 H Lactic Acid Calcium 7.6 L Ionized Calcium Phosphorus Magnesium Direct Bilirubin AST ALT Alkaline Phosphatase Lactate Dehydrogenase Troponin T C-Reactive Protein Total Protein Albumin Prealbumin Triglycerides Cholesterol LDL Cholesterol Direct HDL Cholesterol 25-OH Vitamin D Total PTH Intact Urine pH Urine WBC (Auto) > 182.0 H Urine Creatinine Urine Total Protein Fluid Total Protein Vancomycin Trough Rheumatoid Factor Complement C4 Miscellaneous Test Crossmatch 10/08/16 10/08/16 10/08/16 04:30 05:30 11:51 WBC RBC 5.15 H Hgb 14.4 H D Hct 44.5 H D MCV MCH MCHC RDW 19.5 H Plt Count 56 L Lymph % (Auto) Harper % (Auto) Lymph # Harper # Baso # Seg Neutrophils % Seg Neuts % (Manual) 24.0 L Lymphocytes % (Manual) 8.0 L Monocytes % (Manual) Eosinophils % (Manual) Basophils % (Manual) Nucleated RBC % 9.0 H Seg Neutrophils # Seg Neutrophils # Man Lymphocytes # (Manual) 0.7 L Monocytes # (Manual) Eosinophils # (Manual) Basophils # (Manual) PT INR Fibrinogen dRVVT Confirm Interp Factor V Activity POC ABG pH POC ABG pCO2 POC ABG pO2 ABG pO2 ABG HCO3 ABG Base Excess ABG Hemoglobin Oxyhemoglobin Sodium Potassium Chloride Carbon Dioxide BUN Creatinine Glucose POC Glucose 125 H 150 H Lactic Acid Calcium Ionized Calcium Phosphorus Magnesium Direct Bilirubin AST ALT Alkaline Phosphatase Lactate Dehydrogenase Troponin T C-Reactive Protein Total Protein Albumin Prealbumin Triglycerides Cholesterol LDL Cholesterol Direct HDL Cholesterol 25-OH Vitamin D Total PTH Intact Urine pH Urine WBC (Auto) Urine Creatinine Urine Total Protein Fluid Total Protein Vancomycin Trough Rheumatoid Factor Complement C4 Miscellaneous Test Crossmatch 10/08/16 10/08/16 10/08/16 12:49 17:07 19:30 WBC RBC Hgb 7.1 L D Hct 22.4 L D MCV MCH MCHC RDW Plt Count Lymph % (Auto) Harper % (Auto) Lymph # Harper # Baso # Seg Neutrophils % Seg Neuts % (Manual) Lymphocytes % (Manual) Monocytes % (Manual) Eosinophils % (Manual) Basophils % (Manual) Nucleated RBC % Seg Neutrophils # Seg Neutrophils # Man Lymphocytes # (Manual) Monocytes # (Manual) Eosinophils # (Manual) Basophils # (Manual) PT INR Fibrinogen dRVVT Confirm Interp Factor V Activity POC ABG pH POC ABG pCO2 28.2 L POC ABG pO2 111 H ABG pO2 ABG HCO3 ABG Base Excess ABG Hemoglobin Oxyhemoglobin Sodium Potassium Chloride Carbon Dioxide BUN Creatinine Glucose POC Glucose 145 H Lactic Acid Calcium Ionized Calcium Phosphorus Magnesium Direct Bilirubin AST ALT Alkaline Phosphatase Lactate Dehydrogenase Troponin T C-Reactive Protein Total Protein Albumin Prealbumin Triglycerides Cholesterol LDL Cholesterol Direct HDL Cholesterol 25-OH Vitamin D Total PTH Intact Urine pH Urine WBC (Auto) Urine Creatinine Urine Total Protein Fluid Total Protein Vancomycin Trough Rheumatoid Factor Complement C4 Miscellaneous Test Crossmatch 10/08/16 10/09/16 10/09/16 19:30 03:45 03:45 WBC 12.6 H RBC 2.36 L Hgb 6.7 L Hct 21.1 L MCV MCH MCHC RDW 19.5 H Plt Count 75 L Lymph % (Auto) Harper % (Auto) Lymph # Harper # Baso # Seg Neutrophils % Seg Neuts % (Manual) Lymphocytes % (Manual) Monocytes % (Manual) 10.0 H Eosinophils % (Manual) Basophils % (Manual) Nucleated RBC % 3.0 H Seg Neutrophils # Seg Neutrophils # Man Lymphocytes # (Manual) Monocytes # (Manual) 1.3 H Eosinophils # (Manual) Basophils # (Manual) PT 18.0 H INR 1.41 H Fibrinogen dRVVT Confirm Interp Factor V Activity POC ABG pH POC ABG pCO2 POC ABG pO2 ABG pO2 ABG HCO3 ABG Base Excess ABG Hemoglobin Oxyhemoglobin Sodium 135 L Potassium Chloride Carbon Dioxide 17 L BUN 81 H Creatinine 3.2 H Glucose 109 H POC Glucose Lactic Acid Calcium 7.4 L Ionized Calcium Phosphorus 4.60 H D Magnesium Direct Bilirubin AST ALT Alkaline Phosphatase Lactate Dehydrogenase Troponin T C-Reactive Protein Total Protein Albumin Prealbumin Triglycerides Cholesterol LDL Cholesterol Direct HDL Cholesterol 25-OH Vitamin D Total PTH Intact Urine pH Urine WBC (Auto) Urine Creatinine Urine Total Protein Fluid Total Protein Vancomycin Trough Rheumatoid Factor Complement C4 Miscellaneous Test Crossmatch 10/09/16 10/09/16 10/09/16 03:45 05:14 07:20 WBC RBC Hgb Hct MCV MCH MCHC RDW Plt Count Lymph % (Auto) Harper % (Auto) Lymph # Harper # Baso # Seg Neutrophils % Seg Neuts % (Manual) Lymphocytes % (Manual) Monocytes % (Manual) Eosinophils % (Manual) Basophils % (Manual) Nucleated RBC % Seg Neutrophils # Seg Neutrophils # Man Lymphocytes # (Manual) Monocytes # (Manual) Eosinophils # (Manual) Basophils # (Manual) PT 19.0 H INR 1.51 H Fibrinogen dRVVT Confirm Interp Factor V Activity POC ABG pH POC ABG pCO2 POC ABG pO2 ABG pO2 ABG HCO3 ABG Base Excess ABG Hemoglobin Oxyhemoglobin Sodium Potassium Chloride Carbon Dioxide BUN Creatinine Glucose POC Glucose 151 H Lactic Acid Calcium Ionized Calcium Phosphorus Magnesium Direct Bilirubin AST ALT Alkaline Phosphatase Lactate Dehydrogenase Troponin T C-Reactive Protein Total Protein Albumin Prealbumin Triglycerides Cholesterol LDL Cholesterol Direct HDL Cholesterol 25-OH Vitamin D Total PTH Intact Urine pH Urine WBC (Auto) Urine Creatinine Urine Total Protein Fluid Total Protein Vancomycin Trough Rheumatoid Factor Complement C4 Miscellaneous Test Crossmatch See Detail 10/09/16 10/09/16 10/09/16 11:46 16:20 16:43 WBC RBC Hgb 7.2 L Hct 22.2 L MCV MCH MCHC RDW Plt Count Lymph % (Auto) Harper % (Auto) Lymph # Harper # Baso # Seg Neutrophils % Seg Neuts % (Manual) Lymphocytes % (Manual) Monocytes % (Manual) Eosinophils % (Manual) Basophils % (Manual) Nucleated RBC % Seg Neutrophils # Seg Neutrophils # Man Lymphocytes # (Manual) Monocytes # (Manual) Eosinophils # (Manual) Basophils # (Manual) PT INR Fibrinogen dRVVT Confirm Interp Factor V Activity POC ABG pH POC ABG pCO2 POC ABG pO2 ABG pO2 ABG HCO3 ABG Base Excess ABG Hemoglobin Oxyhemoglobin Sodium Potassium Chloride Carbon Dioxide BUN Creatinine Glucose POC Glucose 133 H 141 H Lactic Acid Calcium Ionized Calcium Phosphorus Magnesium Direct Bilirubin AST ALT Alkaline Phosphatase Lactate Dehydrogenase Troponin T C-Reactive Protein Total Protein Albumin Prealbumin Triglycerides Cholesterol LDL Cholesterol Direct HDL Cholesterol 25-OH Vitamin D Total PTH Intact Urine pH Urine WBC (Auto) Urine Creatinine Urine Total Protein Fluid Total Protein Vancomycin Trough Rheumatoid Factor Complement C4 Miscellaneous Test Crossmatch 10/10/16 10/10/16 10/10/16 05:00 05:00 11:19 WBC 18.5 H RBC 2.19 L Hgb 6.4 L Hct 19.6 L* MCV MCH MCHC RDW 19.3 H Plt Count 93 L Lymph % (Auto) Harper % (Auto) Lymph # Harper # Baso # Seg Neutrophils % Seg Neuts % (Manual) Lymphocytes % (Manual) 10.0 L Monocytes % (Manual) Eosinophils % (Manual) Basophils % (Manual) Nucleated RBC % 4.0 H Seg Neutrophils # Seg Neutrophils # Man 11.3 H Lymphocytes # (Manual) Monocytes # (Manual) Eosinophils # (Manual) Basophils # (Manual) PT INR Fibrinogen dRVVT Confirm Interp Factor V Activity POC ABG pH POC ABG pCO2 POC ABG pO2 ABG pO2 ABG HCO3 ABG Base Excess ABG Hemoglobin Oxyhemoglobin Sodium Potassium 5.7 H D Chloride Carbon Dioxide 16 L BUN 94 H Creatinine 3.1 H Glucose 131 H POC Glucose 153 H Lactic Acid Calcium 8.2 L Ionized Calcium Phosphorus 5.10 H Magnesium 2.40 H Direct Bilirubin 0.3 H AST ALT < 5 L Alkaline Phosphatase 319 H Lactate Dehydrogenase Troponin T C-Reactive Protein Total Protein 5.1 L Albumin 1.0 L Prealbumin Triglycerides Cholesterol LDL Cholesterol Direct HDL Cholesterol 25-OH Vitamin D Total PTH Intact Urine pH Urine WBC (Auto) Urine Creatinine Urine Total Protein Fluid Total Protein Vancomycin Trough Rheumatoid Factor Complement C4 Miscellaneous Test Crossmatch 10/10/16 10/10/16 10/11/16 17:50 23:30 04:15 WBC RBC Hgb Hct MCV MCH MCHC RDW Plt Count Lymph % (Auto) Harper % (Auto) Lymph # Harper # Baso # Seg Neutrophils % Seg Neuts % (Manual) Lymphocytes % (Manual) Monocytes % (Manual) Eosinophils % (Manual) Basophils % (Manual) Nucleated RBC % Seg Neutrophils # Seg Neutrophils # Man Lymphocytes # (Manual) Monocytes # (Manual) Eosinophils # (Manual) Basophils # (Manual) PT INR Fibrinogen dRVVT Confirm Interp Factor V Activity POC ABG pH POC ABG pCO2 POC ABG pO2 ABG pO2 ABG HCO3 ABG Base Excess ABG Hemoglobin Oxyhemoglobin Sodium Potassium Chloride 96.4 L Carbon Dioxide 21 L BUN 57 H Creatinine 2.1 H Glucose 151 H POC Glucose 146 H 141 H Lactic Acid Calcium 8.3 L Ionized Calcium Phosphorus Magnesium Direct Bilirubin AST ALT Alkaline Phosphatase Lactate Dehydrogenase Troponin T C-Reactive Protein Total Protein Albumin Prealbumin Triglycerides Cholesterol LDL Cholesterol Direct HDL Cholesterol 25-OH Vitamin D Total PTH Intact Urine pH Urine WBC (Auto) Urine Creatinine Urine Total Protein Fluid Total Protein Vancomycin Trough Rheumatoid Factor Complement C4 Miscellaneous Test Crossmatch 10/11/16 10/11/16 10/11/16 04:15 04:15 05:30 WBC 28.3 H RBC 3.12 L Hgb 9.3 L Hct 28.7 L D MCV MCH MCHC RDW 17.7 H Plt Count 128 L Lymph % (Auto) Harper % (Auto) Lymph # Harper # Baso # Seg Neutrophils % Seg Neuts % (Manual) Lymphocytes % (Manual) Monocytes % (Manual) Eosinophils % (Manual) Basophils % (Manual) Nucleated RBC % Seg Neutrophils # Seg Neutrophils # Man Lymphocytes # (Manual) Monocytes # (Manual) Eosinophils # (Manual) Basophils # (Manual) PT INR Fibrinogen dRVVT Confirm Interp Factor V Activity POC ABG pH POC ABG pCO2 POC ABG pO2 ABG pO2 ABG HCO3 ABG Base Excess ABG Hemoglobin Oxyhemoglobin Sodium Potassium Chloride Carbon Dioxide BUN Creatinine Glucose POC Glucose 167 H Lactic Acid Calcium Ionized Calcium Phosphorus Magnesium Direct Bilirubin AST ALT Alkaline Phosphatase Lactate Dehydrogenase Troponin T C-Reactive Protein 15.80 H Total Protein Albumin Prealbumin Triglycerides Cholesterol LDL Cholesterol Direct HDL Cholesterol 25-OH Vitamin D Total PTH Intact Urine pH Urine WBC (Auto) Urine Creatinine Urine Total Protein Fluid Total Protein Vancomycin Trough Rheumatoid Factor Complement C4 Miscellaneous Test Crossmatch 10/11/16 10/11/16 10/11/16 11:40 15:49 23:57 WBC RBC Hgb Hct MCV MCH MCHC RDW Plt Count Lymph % (Auto) Harper % (Auto) Lymph # Harper # Baso # Seg Neutrophils % Seg Neuts % (Manual) Lymphocytes % (Manual) Monocytes % (Manual) Eosinophils % (Manual) Basophils % (Manual) Nucleated RBC % Seg Neutrophils # Seg Neutrophils # Man Lymphocytes # (Manual) Monocytes # (Manual) Eosinophils # (Manual) Basophils # (Manual) PT INR Fibrinogen dRVVT Confirm Interp Factor V Activity POC ABG pH POC ABG pCO2 POC ABG pO2 ABG pO2 ABG HCO3 ABG Base Excess ABG Hemoglobin Oxyhemoglobin Sodium Potassium Chloride Carbon Dioxide BUN Creatinine Glucose POC Glucose 139 H 168 H 161 H Lactic Acid Calcium Ionized Calcium Phosphorus Magnesium Direct Bilirubin AST ALT Alkaline Phosphatase Lactate Dehydrogenase Troponin T C-Reactive Protein Total Protein Albumin Prealbumin Triglycerides Cholesterol LDL Cholesterol Direct HDL Cholesterol 25-OH Vitamin D Total PTH Intact Urine pH Urine WBC (Auto) Urine Creatinine Urine Total Protein Fluid Total Protein Vancomycin Trough Rheumatoid Factor Complement C4 Miscellaneous Test Crossmatch 10/12/16 10/12/16 10/12/16 04:40 04:40 05:44 WBC 22.5 H RBC 2.88 L Hgb 8.8 L Hct 26.8 L MCV MCH MCHC RDW 17.8 H Plt Count Lymph % (Auto) Harper % (Auto) Lymph # Harper # Baso # Seg Neutrophils % Seg Neuts % (Manual) Lymphocytes % (Manual) Monocytes % (Manual) Eosinophils % (Manual) Basophils % (Manual) Nucleated RBC % Seg Neutrophils # Seg Neutrophils # Man Lymphocytes # (Manual) Monocytes # (Manual) Eosinophils # (Manual) Basophils # (Manual) PT INR Fibrinogen dRVVT Confirm Interp Factor V Activity POC ABG pH POC ABG pCO2 POC ABG pO2 ABG pO2 ABG HCO3 ABG Base Excess ABG Hemoglobin Oxyhemoglobin Sodium 134 L Potassium Chloride 93.0 L Carbon Dioxide BUN 74 H Creatinine 2.5 H Glucose 137 H POC Glucose 158 H Lactic Acid Calcium 8.2 L Ionized Calcium Phosphorus Magnesium Direct Bilirubin AST ALT Alkaline Phosphatase Lactate Dehydrogenase Troponin T C-Reactive Protein Total Protein Albumin Prealbumin Triglycerides Cholesterol LDL Cholesterol Direct HDL Cholesterol 25-OH Vitamin D Total PTH Intact Urine pH Urine WBC (Auto) Urine Creatinine Urine Total Protein Fluid Total Protein Vancomycin Trough Rheumatoid Factor Complement C4 Miscellaneous Test Crossmatch 10/12/16 10/12/16 10/12/16 12:27 18:18 23:46 WBC RBC Hgb Hct MCV MCH MCHC RDW Plt Count Lymph % (Auto) Harper % (Auto) Lymph # Harper # Baso # Seg Neutrophils % Seg Neuts % (Manual) Lymphocytes % (Manual) Monocytes % (Manual) Eosinophils % (Manual) Basophils % (Manual) Nucleated RBC % Seg Neutrophils # Seg Neutrophils # Man Lymphocytes # (Manual) Monocytes # (Manual) Eosinophils # (Manual) Basophils # (Manual) PT INR Fibrinogen dRVVT Confirm Interp Factor V Activity POC ABG pH POC ABG pCO2 POC ABG pO2 ABG pO2 ABG HCO3 ABG Base Excess ABG Hemoglobin Oxyhemoglobin Sodium Potassium Chloride Carbon Dioxide BUN Creatinine Glucose POC Glucose 153 H 140 H 150 H Lactic Acid Calcium Ionized Calcium Phosphorus Magnesium Direct Bilirubin AST ALT Alkaline Phosphatase Lactate Dehydrogenase Troponin T C-Reactive Protein Total Protein Albumin Prealbumin Triglycerides Cholesterol LDL Cholesterol Direct HDL Cholesterol 25-OH Vitamin D Total PTH Intact Urine pH Urine WBC (Auto) Urine Creatinine Urine Total Protein Fluid Total Protein Vancomycin Trough Rheumatoid Factor Complement C4 Miscellaneous Test Crossmatch 10/13/16 10/13/16 10/13/16 06:22 09:20 12:29 WBC RBC Hgb Hct MCV MCH MCHC RDW Plt Count Lymph % (Auto) Harper % (Auto) Lymph # Harper # Baso # Seg Neutrophils % Seg Neuts % (Manual) Lymphocytes % (Manual) Monocytes % (Manual) Eosinophils % (Manual) Basophils % (Manual) Nucleated RBC % Seg Neutrophils # Seg Neutrophils # Man Lymphocytes # (Manual) Monocytes # (Manual) Eosinophils # (Manual) Basophils # (Manual) PT INR Fibrinogen dRVVT Confirm Interp Factor V Activity POC ABG pH POC ABG pCO2 POC ABG pO2 ABG pO2 ABG HCO3 ABG Base Excess ABG Hemoglobin Oxyhemoglobin Sodium Potassium Chloride Carbon Dioxide BUN Creatinine Glucose POC Glucose 165 H 193 H Lactic Acid Calcium Ionized Calcium Phosphorus Magnesium Direct Bilirubin AST ALT Alkaline Phosphatase Lactate Dehydrogenase Troponin T C-Reactive Protein Total Protein Albumin Prealbumin Triglycerides Cholesterol LDL Cholesterol Direct HDL Cholesterol 25-OH Vitamin D Total PTH Intact Urine pH Urine WBC (Auto) Urine Creatinine Urine Total Protein Fluid Total Protein Vancomycin Trough Rheumatoid Factor Complement C4 Miscellaneous Test Flexitest 1 H Crossmatch 10/13/16 10/13/16 10/13/16 18:09 Unknown Unknown WBC 23.4 H RBC 2.83 L Hgb 8.7 L Hct 26.1 L MCV MCH MCHC RDW 18.1 H Plt Count Lymph % (Auto) Harper % (Auto) Lymph # Harper # Baso # Seg Neutrophils % Seg Neuts % (Manual) Lymphocytes % (Manual) Monocytes % (Manual) Eosinophils % (Manual) Basophils % (Manual) Nucleated RBC % Seg Neutrophils # Seg Neutrophils # Man Lymphocytes # (Manual) Monocytes # (Manual) Eosinophils # (Manual) Basophils # (Manual) PT INR Fibrinogen dRVVT Confirm Interp Factor V Activity POC ABG pH POC ABG pCO2 POC ABG pO2 ABG pO2 ABG HCO3 ABG Base Excess ABG Hemoglobin Oxyhemoglobin Sodium Potassium Chloride 95.8 L Carbon Dioxide BUN 82 H Creatinine 2.6 H Glucose 152 H POC Glucose 166 H Lactic Acid Calcium Ionized Calcium Phosphorus Magnesium Direct Bilirubin AST ALT Alkaline Phosphatase Lactate Dehydrogenase Troponin T C-Reactive Protein Total Protein Albumin Prealbumin Triglycerides Cholesterol LDL Cholesterol Direct HDL Cholesterol 25-OH Vitamin D Total PTH Intact Urine pH Urine WBC (Auto) Urine Creatinine Urine Total Protein Fluid Total Protein Vancomycin Trough Rheumatoid Factor Complement C4 Miscellaneous Test Crossmatch 10/14/16 10/14/16 10/14/16 05:38 06:35 08:10 WBC 20.7 H RBC 2.81 L Hgb 8.4 L Hct 27.2 L MCV MCH MCHC RDW 19.4 H Plt Count Lymph % (Auto) Harper % (Auto) Lymph # Harper # Baso # Seg Neutrophils % Seg Neuts % (Manual) Lymphocytes % (Manual) Monocytes % (Manual) Eosinophils % (Manual) Basophils % (Manual) Nucleated RBC % Seg Neutrophils # Seg Neutrophils # Man Lymphocytes # (Manual) Monocytes # (Manual) Eosinophils # (Manual) Basophils # (Manual) PT INR Fibrinogen dRVVT Confirm Interp Factor V Activity POC ABG pH POC ABG pCO2 POC ABG pO2 ABG pO2 ABG HCO3 ABG Base Excess ABG Hemoglobin Oxyhemoglobin Sodium Potassium Chloride Carbon Dioxide BUN 58 H Creatinine 1.9 H Glucose 169 H POC Glucose 195 H Lactic Acid Calcium Ionized Calcium Phosphorus Magnesium Direct Bilirubin AST ALT Alkaline Phosphatase Lactate Dehydrogenase Troponin T C-Reactive Protein Total Protein Albumin Prealbumin Triglycerides Cholesterol LDL Cholesterol Direct HDL Cholesterol 25-OH Vitamin D Total PTH Intact Urine pH Urine WBC (Auto) Urine Creatinine Urine Total Protein Fluid Total Protein Vancomycin Trough Rheumatoid Factor Complement C4 Miscellaneous Test Crossmatch 10/14/16 10/14/16 10/14/16 11:44 17:13 23:28 WBC RBC Hgb Hct MCV MCH MCHC RDW Plt Count Lymph % (Auto) Harper % (Auto) Lymph # Harper # Baso # Seg Neutrophils % Seg Neuts % (Manual) Lymphocytes % (Manual) Monocytes % (Manual) Eosinophils % (Manual) Basophils % (Manual) Nucleated RBC % Seg Neutrophils # Seg Neutrophils # Man Lymphocytes # (Manual) Monocytes # (Manual) Eosinophils # (Manual) Basophils # (Manual) PT INR Fibrinogen dRVVT Confirm Interp Factor V Activity POC ABG pH POC ABG pCO2 POC ABG pO2 ABG pO2 ABG HCO3 ABG Base Excess ABG Hemoglobin Oxyhemoglobin Sodium Potassium Chloride Carbon Dioxide BUN Creatinine Glucose POC Glucose 174 H 121 H 151 H Lactic Acid Calcium Ionized Calcium Phosphorus Magnesium Direct Bilirubin AST ALT Alkaline Phosphatase Lactate Dehydrogenase Troponin T C-Reactive Protein Total Protein Albumin Prealbumin Triglycerides Cholesterol LDL Cholesterol Direct HDL Cholesterol 25-OH Vitamin D Total PTH Intact Urine pH Urine WBC (Auto) Urine Creatinine Urine Total Protein Fluid Total Protein Vancomycin Trough Rheumatoid Factor Complement C4 Miscellaneous Test Crossmatch 10/15/16 10/15/16 10/15/16 05:06 12:26 17:48 WBC RBC Hgb Hct MCV MCH MCHC RDW Plt Count Lymph % (Auto) Harper % (Auto) Lymph # Harper # Baso # Seg Neutrophils % Seg Neuts % (Manual) Lymphocytes % (Manual) Monocytes % (Manual) Eosinophils % (Manual) Basophils % (Manual) Nucleated RBC % Seg Neutrophils # Seg Neutrophils # Man Lymphocytes # (Manual) Monocytes # (Manual) Eosinophils # (Manual) Basophils # (Manual) PT INR Fibrinogen dRVVT Confirm Interp Factor V Activity POC ABG pH POC ABG pCO2 POC ABG pO2 ABG pO2 ABG HCO3 ABG Base Excess ABG Hemoglobin Oxyhemoglobin Sodium Potassium Chloride Carbon Dioxide BUN Creatinine Glucose POC Glucose 151 H 149 H 153 H Lactic Acid Calcium Ionized Calcium Phosphorus Magnesium Direct Bilirubin AST ALT Alkaline Phosphatase Lactate Dehydrogenase Troponin T C-Reactive Protein Total Protein Albumin Prealbumin Triglycerides Cholesterol LDL Cholesterol Direct HDL Cholesterol 25-OH Vitamin D Total PTH Intact Urine pH Urine WBC (Auto) Urine Creatinine Urine Total Protein Fluid Total Protein Vancomycin Trough Rheumatoid Factor Complement C4 Miscellaneous Test Crossmatch 10/15/16 10/15/16 10/16/16 Unknown Unknown 00:02 WBC 23.4 H RBC 2.78 L Hgb 8.5 L Hct 25.7 L MCV MCH MCHC RDW 18.7 H Plt Count Lymph % (Auto) Harper % (Auto) Lymph # Harper # Baso # Seg Neutrophils % Seg Neuts % (Manual) Lymphocytes % (Manual) Monocytes % (Manual) Eosinophils % (Manual) Basophils % (Manual) Nucleated RBC % Seg Neutrophils # Seg Neutrophils # Man Lymphocytes # (Manual) Monocytes # (Manual) Eosinophils # (Manual) Basophils # (Manual) PT INR Fibrinogen dRVVT Confirm Interp Factor V Activity POC ABG pH POC ABG pCO2 POC ABG pO2 ABG pO2 ABG HCO3 ABG Base Excess ABG Hemoglobin Oxyhemoglobin Sodium Potassium Chloride Carbon Dioxide BUN 73 H Creatinine 2.3 H Glucose 120 H POC Glucose 137 H Lactic Acid Calcium Ionized Calcium Phosphorus Magnesium Direct Bilirubin AST ALT Alkaline Phosphatase Lactate Dehydrogenase Troponin T C-Reactive Protein Total Protein Albumin Prealbumin Triglycerides Cholesterol LDL Cholesterol Direct HDL Cholesterol 25-OH Vitamin D Total PTH Intact Urine pH Urine WBC (Auto) Urine Creatinine Urine Total Protein Fluid Total Protein Vancomycin Trough Rheumatoid Factor Complement C4 Miscellaneous Test Crossmatch 10/16/16 10/16/16 10/16/16 05:44 06:25 06:25 WBC 22.5 H RBC 2.76 L Hgb 8.3 L Hct 25.2 L MCV MCH MCHC RDW 18.3 H Plt Count Lymph % (Auto) Harper % (Auto) Lymph # Harper # Baso # Seg Neutrophils % Seg Neuts % (Manual) Lymphocytes % (Manual) Monocytes % (Manual) Eosinophils % (Manual) Basophils % (Manual) Nucleated RBC % Seg Neutrophils # Seg Neutrophils # Man Lymphocytes # (Manual) Monocytes # (Manual) Eosinophils # (Manual) Basophils # (Manual) PT INR Fibrinogen dRVVT Confirm Interp Factor V Activity POC ABG pH POC ABG pCO2 POC ABG pO2 ABG pO2 ABG HCO3 ABG Base Excess ABG Hemoglobin Oxyhemoglobin Sodium Potassium Chloride Carbon Dioxide BUN 92 H Creatinine 3.0 H Glucose 138 H POC Glucose 110 H Lactic Acid Calcium Ionized Calcium Phosphorus Magnesium Direct Bilirubin AST ALT Alkaline Phosphatase Lactate Dehydrogenase Troponin T C-Reactive Protein Total Protein Albumin Prealbumin Triglycerides Cholesterol LDL Cholesterol Direct HDL Cholesterol 25-OH Vitamin D Total PTH Intact Urine pH Urine WBC (Auto) Urine Creatinine Urine Total Protein Fluid Total Protein Vancomycin Trough Rheumatoid Factor Complement C4 Miscellaneous Test Crossmatch 10/16/16 10/16/16 10/16/16 11:27 11:48 17:36 WBC RBC Hgb Hct MCV MCH MCHC RDW Plt Count Lymph % (Auto) Harper % (Auto) Lymph # Harper # Baso # Seg Neutrophils % Seg Neuts % (Manual) Lymphocytes % (Manual) Monocytes % (Manual) Eosinophils % (Manual) Basophils % (Manual) Nucleated RBC % Seg Neutrophils # Seg Neutrophils # Man Lymphocytes # (Manual) Monocytes # (Manual) Eosinophils # (Manual) Basophils # (Manual) PT INR Fibrinogen dRVVT Confirm Interp Factor V Activity POC ABG pH 7.582 H POC ABG pCO2 27.4 L POC ABG pO2 110 H ABG pO2 ABG HCO3 ABG Base Excess ABG Hemoglobin Oxyhemoglobin Sodium Potassium Chloride Carbon Dioxide BUN Creatinine Glucose POC Glucose 121 H 133 H Lactic Acid Calcium Ionized Calcium Phosphorus Magnesium Direct Bilirubin AST ALT Alkaline Phosphatase Lactate Dehydrogenase Troponin T C-Reactive Protein Total Protein Albumin Prealbumin Triglycerides Cholesterol LDL Cholesterol Direct HDL Cholesterol 25-OH Vitamin D Total PTH Intact Urine pH Urine WBC (Auto) Urine Creatinine Urine Total Protein Fluid Total Protein Vancomycin Trough Rheumatoid Factor Complement C4 Miscellaneous Test Crossmatch 10/16/16 10/17/16 10/17/16 20:48 04:24 04:24 WBC 21.4 H RBC 2.72 L Hgb 8.0 L Hct 25.2 L MCV MCH MCHC RDW 18.0 H Plt Count Lymph % (Auto) Harper % (Auto) Lymph # Harper # Baso # Seg Neutrophils % Seg Neuts % (Manual) Lymphocytes % (Manual) Monocytes % (Manual) Eosinophils % (Manual) Basophils % (Manual) Nucleated RBC % Seg Neutrophils # Seg Neutrophils # Man Lymphocytes # (Manual) Monocytes # (Manual) Eosinophils # (Manual) Basophils # (Manual) PT INR Fibrinogen dRVVT Confirm Interp Factor V Activity POC ABG pH 7.561 H POC ABG pCO2 24.4 L POC ABG pO2 77 L ABG pO2 ABG HCO3 ABG Base Excess ABG Hemoglobin Oxyhemoglobin Sodium 148 H Potassium Chloride Carbon Dioxide BUN 104 H Creatinine 3.0 H Glucose 149 H POC Glucose Lactic Acid Calcium Ionized Calcium Phosphorus Magnesium Direct Bilirubin AST ALT Alkaline Phosphatase 138 H Lactate Dehydrogenase Troponin T C-Reactive Protein Total Protein 6.2 L Albumin 1.5 L Prealbumin Triglycerides Cholesterol LDL Cholesterol Direct HDL Cholesterol 25-OH Vitamin D Total PTH Intact Urine pH Urine WBC (Auto) Urine Creatinine Urine Total Protein Fluid Total Protein Vancomycin Trough Rheumatoid Factor Complement C4 Miscellaneous Test Crossmatch 10/17/16 10/17/16 10/17/16 06:02 12:17 17:14 WBC RBC Hgb Hct MCV MCH MCHC RDW Plt Count Lymph % (Auto) Harper % (Auto) Lymph # Harper # Baso # Seg Neutrophils % Seg Neuts % (Manual) Lymphocytes % (Manual) Monocytes % (Manual) Eosinophils % (Manual) Basophils % (Manual) Nucleated RBC % Seg Neutrophils # Seg Neutrophils # Man Lymphocytes # (Manual) Monocytes # (Manual) Eosinophils # (Manual) Basophils # (Manual) PT INR Fibrinogen dRVVT Confirm Interp Factor V Activity POC ABG pH POC ABG pCO2 POC ABG pO2 ABG pO2 ABG HCO3 ABG Base Excess ABG Hemoglobin Oxyhemoglobin Sodium Potassium Chloride Carbon Dioxide BUN Creatinine Glucose POC Glucose 170 H 167 H 126 H Lactic Acid Calcium Ionized Calcium Phosphorus Magnesium Direct Bilirubin AST ALT Alkaline Phosphatase Lactate Dehydrogenase Troponin T C-Reactive Protein Total Protein Albumin Prealbumin Triglycerides Cholesterol LDL Cholesterol Direct HDL Cholesterol 25-OH Vitamin D Total PTH Intact Urine pH Urine WBC (Auto) Urine Creatinine Urine Total Protein Fluid Total Protein Vancomycin Trough Rheumatoid Factor Complement C4 Miscellaneous Test Crossmatch 10/17/16 10/18/16 10/18/16 23:17 04:00 04:00 WBC 20.7 H RBC 2.47 L Hgb 7.4 L Hct 22.9 L MCV MCH MCHC RDW 17.5 H Plt Count Lymph % (Auto) Harper % (Auto) Lymph # Harper # Baso # Seg Neutrophils % Seg Neuts % (Manual) Lymphocytes % (Manual) Monocytes % (Manual) Eosinophils % (Manual) Basophils % (Manual) Nucleated RBC % Seg Neutrophils # Seg Neutrophils # Man Lymphocytes # (Manual) Monocytes # (Manual) Eosinophils # (Manual) Basophils # (Manual) PT INR Fibrinogen dRVVT Confirm Interp Factor V Activity POC ABG pH POC ABG pCO2 POC ABG pO2 ABG pO2 ABG HCO3 ABG Base Excess ABG Hemoglobin Oxyhemoglobin Sodium 149 H Potassium Chloride 107.9 H Carbon Dioxide 20 L BUN 117 H Creatinine 3.2 H Glucose 119 H POC Glucose 121 H Lactic Acid Calcium Ionized Calcium Phosphorus Magnesium Direct Bilirubin AST ALT Alkaline Phosphatase Lactate Dehydrogenase Troponin T C-Reactive Protein Total Protein Albumin Prealbumin Triglycerides Cholesterol LDL Cholesterol Direct HDL Cholesterol 25-OH Vitamin D Total PTH Intact Urine pH Urine WBC (Auto) Urine Creatinine Urine Total Protein Fluid Total Protein Vancomycin Trough Rheumatoid Factor Complement C4 Miscellaneous Test Crossmatch 10/18/16 10/18/16 10/18/16 05:23 10:46 17:30 WBC RBC Hgb Hct MCV MCH MCHC RDW Plt Count Lymph % (Auto) Harper % (Auto) Lymph # Harper # Baso # Seg Neutrophils % Seg Neuts % (Manual) Lymphocytes % (Manual) Monocytes % (Manual) Eosinophils % (Manual) Basophils % (Manual) Nucleated RBC % Seg Neutrophils # Seg Neutrophils # Man Lymphocytes # (Manual) Monocytes # (Manual) Eosinophils # (Manual) Basophils # (Manual) PT INR Fibrinogen dRVVT Confirm Interp Factor V Activity POC ABG pH POC ABG pCO2 POC ABG pO2 ABG pO2 ABG HCO3 ABG Base Excess ABG Hemoglobin Oxyhemoglobin Sodium Potassium Chloride Carbon Dioxide BUN Creatinine Glucose POC Glucose 119 H 155 H 124 H Lactic Acid Calcium Ionized Calcium Phosphorus Magnesium Direct Bilirubin AST ALT Alkaline Phosphatase Lactate Dehydrogenase Troponin T C-Reactive Protein Total Protein Albumin Prealbumin Triglycerides Cholesterol LDL Cholesterol Direct HDL Cholesterol 25-OH Vitamin D Total PTH Intact Urine pH Urine WBC (Auto) Urine Creatinine Urine Total Protein Fluid Total Protein Vancomycin Trough Rheumatoid Factor Complement C4 Miscellaneous Test Crossmatch 10/19/16 10/19/16 10/19/16 04:00 04:00 05:25 WBC 17.4 H RBC 2.54 L Hgb 7.7 L Hct 23.6 L MCV MCH MCHC RDW 17.3 H Plt Count Lymph % (Auto) Harper % (Auto) Lymph # Harper # Baso # Seg Neutrophils % Seg Neuts % (Manual) Lymphocytes % (Manual) Monocytes % (Manual) Eosinophils % (Manual) Basophils % (Manual) Nucleated RBC % Seg Neutrophils # Seg Neutrophils # Man Lymphocytes # (Manual) Monocytes # (Manual) Eosinophils # (Manual) Basophils # (Manual) PT INR Fibrinogen dRVVT Confirm Interp Factor V Activity POC ABG pH POC ABG pCO2 POC ABG pO2 ABG pO2 ABG HCO3 ABG Base Excess ABG Hemoglobin Oxyhemoglobin Sodium Potassium Chloride Carbon Dioxide BUN 72 H Creatinine 2.1 H Glucose 116 H POC Glucose 119 H Lactic Acid Calcium Ionized Calcium Phosphorus Magnesium Direct Bilirubin AST ALT Alkaline Phosphatase Lactate Dehydrogenase Troponin T C-Reactive Protein Total Protein Albumin Prealbumin Triglycerides Cholesterol LDL Cholesterol Direct HDL Cholesterol 25-OH Vitamin D Total PTH Intact Urine pH Urine WBC (Auto) Urine Creatinine Urine Total Protein Fluid Total Protein Vancomycin Trough Rheumatoid Factor Complement C4 Miscellaneous Test Crossmatch 10/19/16 10/19/16 10/20/16 11:46 23:59 06:00 WBC RBC Hgb Hct MCV MCH MCHC RDW Plt Count Lymph % (Auto) Harper % (Auto) Lymph # Harper # Baso # Seg Neutrophils % Seg Neuts % (Manual) Lymphocytes % (Manual) Monocytes % (Manual) Eosinophils % (Manual) Basophils % (Manual) Nucleated RBC % Seg Neutrophils # Seg Neutrophils # Man Lymphocytes # (Manual) Monocytes # (Manual) Eosinophils # (Manual) Basophils # (Manual) PT INR Fibrinogen dRVVT Confirm Interp Factor V Activity POC ABG pH POC ABG pCO2 POC ABG pO2 ABG pO2 ABG HCO3 ABG Base Excess ABG Hemoglobin Oxyhemoglobin Sodium Potassium Chloride Carbon Dioxide 17 L BUN 94 H Creatinine 2.7 H Glucose POC Glucose 116 H 117 H Lactic Acid Calcium Ionized Calcium Phosphorus Magnesium Direct Bilirubin AST ALT Alkaline Phosphatase Lactate Dehydrogenase Troponin T C-Reactive Protein Total Protein Albumin Prealbumin Triglycerides Cholesterol LDL Cholesterol Direct HDL Cholesterol 25-OH Vitamin D Total PTH Intact Urine pH Urine WBC (Auto) Urine Creatinine Urine Total Protein Fluid Total Protein Vancomycin Trough Rheumatoid Factor Complement C4 Miscellaneous Test Crossmatch 10/20/16 10/20/16 10/20/16 06:00 11:49 16:00 WBC 19.7 H RBC 2.51 L Hgb 7.7 L Hct 23.5 L MCV MCH MCHC RDW 17.5 H Plt Count Lymph % (Auto) Harper % (Auto) Lymph # Harper # Baso # Seg Neutrophils % Seg Neuts % (Manual) Lymphocytes % (Manual) Monocytes % (Manual) Eosinophils % (Manual) Basophils % (Manual) Nucleated RBC % Seg Neutrophils # Seg Neutrophils # Man Lymphocytes # (Manual) Monocytes # (Manual) Eosinophils # (Manual) Basophils # (Manual) PT INR Fibrinogen dRVVT Confirm Interp Factor V Activity POC ABG pH POC ABG pCO2 POC ABG pO2 ABG pO2 ABG HCO3 ABG Base Excess ABG Hemoglobin Oxyhemoglobin Sodium Potassium Chloride Carbon Dioxide BUN Creatinine Glucose POC Glucose 117 H Lactic Acid Calcium Ionized Calcium Phosphorus Magnesium Direct Bilirubin AST ALT Alkaline Phosphatase Lactate Dehydrogenase Troponin T C-Reactive Protein Total Protein Albumin Prealbumin Triglycerides Cholesterol LDL Cholesterol Direct HDL Cholesterol 25-OH Vitamin D Total PTH Intact Urine pH Urine WBC (Auto) Urine Creatinine Urine Total Protein Fluid Total Protein Vancomycin Trough Rheumatoid Factor Complement C4 Miscellaneous Test Flexitest 1 H Crossmatch 10/20/16 10/20/16 10/21/16 18:36 23:39 04:00 WBC RBC Hgb Hct MCV MCH MCHC RDW Plt Count Lymph % (Auto) Harper % (Auto) Lymph # Harper # Baso # Seg Neutrophils % Seg Neuts % (Manual) Lymphocytes % (Manual) Monocytes % (Manual) Eosinophils % (Manual) Basophils % (Manual) Nucleated RBC % Seg Neutrophils # Seg Neutrophils # Man Lymphocytes # (Manual) Monocytes # (Manual) Eosinophils # (Manual) Basophils # (Manual) PT INR Fibrinogen dRVVT Confirm Interp Factor V Activity POC ABG pH POC ABG pCO2 POC ABG pO2 ABG pO2 ABG HCO3 ABG Base Excess ABG Hemoglobin Oxyhemoglobin Sodium Potassium 5.4 H D Chloride Carbon Dioxide 15 L BUN 110 H Creatinine 3.0 H Glucose POC Glucose 127 H 114 H Lactic Acid Calcium Ionized Calcium Phosphorus Magnesium Direct Bilirubin AST ALT Alkaline Phosphatase Lactate Dehydrogenase Troponin T C-Reactive Protein Total Protein Albumin Prealbumin Triglycerides Cholesterol LDL Cholesterol Direct HDL Cholesterol 25-OH Vitamin D Total PTH Intact Urine pH Urine WBC (Auto) Urine Creatinine Urine Total Protein Fluid Total Protein Vancomycin Trough Rheumatoid Factor Complement C4 Miscellaneous Test Crossmatch 10/21/16 10/21/16 10/22/16 05:54 23:46 05:18 WBC RBC Hgb Hct MCV MCH MCHC RDW Plt Count Lymph % (Auto) Harper % (Auto) Lymph # Harper # Baso # Seg Neutrophils % Seg Neuts % (Manual) Lymphocytes % (Manual) Monocytes % (Manual) Eosinophils % (Manual) Basophils % (Manual) Nucleated RBC % Seg Neutrophils # Seg Neutrophils # Man Lymphocytes # (Manual) Monocytes # (Manual) Eosinophils # (Manual) Basophils # (Manual) PT INR Fibrinogen dRVVT Confirm Interp Factor V Activity POC ABG pH POC ABG pCO2 POC ABG pO2 ABG pO2 ABG HCO3 ABG Base Excess ABG Hemoglobin Oxyhemoglobin Sodium Potassium Chloride Carbon Dioxide BUN Creatinine Glucose POC Glucose 119 H 108 H 109 H Lactic Acid Calcium Ionized Calcium Phosphorus Magnesium Direct Bilirubin AST ALT Alkaline Phosphatase Lactate Dehydrogenase Troponin T C-Reactive Protein Total Protein Albumin Prealbumin Triglycerides Cholesterol LDL Cholesterol Direct HDL Cholesterol 25-OH Vitamin D Total PTH Intact Urine pH Urine WBC (Auto) Urine Creatinine Urine Total Protein Fluid Total Protein Vancomycin Trough Rheumatoid Factor Complement C4 Miscellaneous Test Crossmatch 10/22/16 10/22/16 10/22/16 06:40 06:40 06:40 WBC 14.0 H RBC 2.03 L Hgb 7.0 L Hct 20.5 L MCV 98 H MCH 34 H MCHC 35 H RDW 17.8 H Plt Count Lymph % (Auto) Harper % (Auto) 9.9 H Lymph # Harper # 1.4 H Baso # 0.2 H Seg Neutrophils % 72.0 H Seg Neuts % (Manual) Lymphocytes % (Manual) Monocytes % (Manual) Eosinophils % (Manual) Basophils % (Manual) Nucleated RBC % Seg Neutrophils # 10.0 H Seg Neutrophils # Man Lymphocytes # (Manual) Monocytes # (Manual) Eosinophils # (Manual) Basophils # (Manual) PT INR Fibrinogen dRVVT Confirm Interp Factor V Activity POC ABG pH POC ABG pCO2 POC ABG pO2 ABG pO2 ABG HCO3 ABG Base Excess ABG Hemoglobin Oxyhemoglobin Sodium 130 L D Potassium Chloride 92.4 L Carbon Dioxide 20 L BUN 50 H Creatinine 1.6 H Glucose 589 H* POC Glucose Lactic Acid Calcium 7.8 L D Ionized Calcium Phosphorus Magnesium 1.60 L Direct Bilirubin AST ALT Alkaline Phosphatase Lactate Dehydrogenase Troponin T C-Reactive Protein Total Protein Albumin Prealbumin Triglycerides Cholesterol LDL Cholesterol Direct HDL Cholesterol 25-OH Vitamin D Total PTH Intact Urine pH Urine WBC (Auto) Urine Creatinine Urine Total Protein Fluid Total Protein Vancomycin Trough Rheumatoid Factor Complement C4 Miscellaneous Test Crossmatch 10/22/16 10/22/16 10/22/16 11:39 16:44 23:36 WBC RBC Hgb Hct MCV MCH MCHC RDW Plt Count Lymph % (Auto) Harper % (Auto) Lymph # Harper # Baso # Seg Neutrophils % Seg Neuts % (Manual) Lymphocytes % (Manual) Monocytes % (Manual) Eosinophils % (Manual) Basophils % (Manual) Nucleated RBC % Seg Neutrophils # Seg Neutrophils # Man Lymphocytes # (Manual) Monocytes # (Manual) Eosinophils # (Manual) Basophils # (Manual) PT INR Fibrinogen dRVVT Confirm Interp Factor V Activity POC ABG pH POC ABG pCO2 POC ABG pO2 ABG pO2 ABG HCO3 ABG Base Excess ABG Hemoglobin Oxyhemoglobin Sodium Potassium Chloride Carbon Dioxide BUN Creatinine Glucose POC Glucose 142 H 163 H 123 H Lactic Acid Calcium Ionized Calcium Phosphorus Magnesium Direct Bilirubin AST ALT Alkaline Phosphatase Lactate Dehydrogenase Troponin T C-Reactive Protein Total Protein Albumin Prealbumin Triglycerides Cholesterol LDL Cholesterol Direct HDL Cholesterol 25-OH Vitamin D Total PTH Intact Urine pH Urine WBC (Auto) Urine Creatinine Urine Total Protein Fluid Total Protein Vancomycin Trough Rheumatoid Factor Complement C4 Miscellaneous Test Crossmatch 10/23/16 10/23/16 10/23/16 04:58 06:00 12:12 WBC RBC Hgb Hct MCV MCH MCHC RDW Plt Count Lymph % (Auto) Harper % (Auto) Lymph # Harper # Baso # Seg Neutrophils % Seg Neuts % (Manual) Lymphocytes % (Manual) Monocytes % (Manual) Eosinophils % (Manual) Basophils % (Manual) Nucleated RBC % Seg Neutrophils # Seg Neutrophils # Man Lymphocytes # (Manual) Monocytes # (Manual) Eosinophils # (Manual) Basophils # (Manual) PT INR Fibrinogen dRVVT Confirm Interp Factor V Activity POC ABG pH POC ABG pCO2 POC ABG pO2 ABG pO2 ABG HCO3 ABG Base Excess ABG Hemoglobin Oxyhemoglobin Sodium 133 L Potassium 3.5 L Chloride 96.1 L Carbon Dioxide 18 L BUN 76 H Creatinine 2.1 H Glucose POC Glucose 133 H 138 H Lactic Acid Calcium 8.3 L Ionized Calcium Phosphorus Magnesium Direct Bilirubin AST ALT Alkaline Phosphatase Lactate Dehydrogenase Troponin T C-Reactive Protein Total Protein Albumin Prealbumin Triglycerides Cholesterol LDL Cholesterol Direct HDL Cholesterol 25-OH Vitamin D Total PTH Intact Urine pH Urine WBC (Auto) Urine Creatinine Urine Total Protein Fluid Total Protein Vancomycin Trough Rheumatoid Factor Complement C4 Miscellaneous Test Crossmatch 10/23/16 10/23/16 10/24/16 16:53 23:37 04:00 WBC RBC Hgb Hct MCV MCH MCHC RDW Plt Count Lymph % (Auto) Harper % (Auto) Lymph # Harper # Baso # Seg Neutrophils % Seg Neuts % (Manual) Lymphocytes % (Manual) Monocytes % (Manual) Eosinophils % (Manual) Basophils % (Manual) Nucleated RBC % Seg Neutrophils # Seg Neutrophils # Man Lymphocytes # (Manual) Monocytes # (Manual) Eosinophils # (Manual) Basophils # (Manual) PT INR Fibrinogen dRVVT Confirm Interp Factor V Activity POC ABG pH POC ABG pCO2 POC ABG pO2 ABG pO2 ABG HCO3 ABG Base Excess ABG Hemoglobin Oxyhemoglobin Sodium 131 L Potassium Chloride 94.5 L Carbon Dioxide 19 L BUN 97 H Creatinine 2.6 H Glucose 110 H POC Glucose 125 H 123 H Lactic Acid Calcium 8.3 L Ionized Calcium Phosphorus Magnesium Direct Bilirubin AST ALT Alkaline Phosphatase Lactate Dehydrogenase Troponin T C-Reactive Protein Total Protein Albumin Prealbumin Triglycerides Cholesterol LDL Cholesterol Direct HDL Cholesterol 25-OH Vitamin D Total PTH Intact Urine pH Urine WBC (Auto) Urine Creatinine Urine Total Protein Fluid Total Protein Vancomycin Trough Rheumatoid Factor Complement C4 Miscellaneous Test Crossmatch 10/24/16 10/24/16 10/24/16 07:49 11:39 17:52 WBC RBC Hgb 6.0 L Hct 19.7 L* MCV MCH MCHC RDW Plt Count Lymph % (Auto) Harper % (Auto) Lymph # Harper # Baso # Seg Neutrophils % Seg Neuts % (Manual) Lymphocytes % (Manual) Monocytes % (Manual) Eosinophils % (Manual) Basophils % (Manual) Nucleated RBC % Seg Neutrophils # Seg Neutrophils # Man Lymphocytes # (Manual) Monocytes # (Manual) Eosinophils # (Manual) Basophils # (Manual) PT INR Fibrinogen dRVVT Confirm Interp Factor V Activity POC ABG pH POC ABG pCO2 POC ABG pO2 ABG pO2 ABG HCO3 ABG Base Excess ABG Hemoglobin Oxyhemoglobin Sodium Potassium Chloride Carbon Dioxide BUN Creatinine Glucose POC Glucose 106 H 158 H Lactic Acid Calcium Ionized Calcium Phosphorus Magnesium Direct Bilirubin AST ALT Alkaline Phosphatase Lactate Dehydrogenase Troponin T C-Reactive Protein Total Protein Albumin Prealbumin Triglycerides Cholesterol LDL Cholesterol Direct HDL Cholesterol 25-OH Vitamin D Total PTH Intact Urine pH Urine WBC (Auto) Urine Creatinine Urine Total Protein Fluid Total Protein Vancomycin Trough Rheumatoid Factor Complement C4 Miscellaneous Test Crossmatch 10/24/16 10/24/16 10/24/16 20:00 22:27 Unknown WBC RBC Hgb 9.4 L D Hct 27.5 L D MCV MCH MCHC RDW Plt Count Lymph % (Auto) Harper % (Auto) Lymph # Harper # Baso # Seg Neutrophils % Seg Neuts % (Manual) Lymphocytes % (Manual) Monocytes % (Manual) Eosinophils % (Manual) Basophils % (Manual) Nucleated RBC % Seg Neutrophils # Seg Neutrophils # Man Lymphocytes # (Manual) Monocytes # (Manual) Eosinophils # (Manual) Basophils # (Manual) PT INR Fibrinogen dRVVT Confirm Interp Factor V Activity POC ABG pH POC ABG pCO2 POC ABG pO2 ABG pO2 ABG HCO3 ABG Base Excess ABG Hemoglobin Oxyhemoglobin Sodium Potassium Chloride Carbon Dioxide BUN Creatinine Glucose POC Glucose 125 H Lactic Acid Calcium Ionized Calcium Phosphorus Magnesium Direct Bilirubin AST ALT Alkaline Phosphatase Lactate Dehydrogenase Troponin T C-Reactive Protein Total Protein Albumin Prealbumin Triglycerides Cholesterol LDL Cholesterol Direct HDL Cholesterol 25-OH Vitamin D Total PTH Intact Urine pH Urine WBC (Auto) Urine Creatinine Urine Total Protein Fluid Total Protein Vancomycin Trough Rheumatoid Factor Complement C4 Miscellaneous Test Crossmatch See Detail 10/25/16 10/25/16 10/25/16 04:00 04:00 04:00 WBC 14.2 H RBC 2.98 L Hgb 9.0 L Hct 26.2 L MCV MCH MCHC RDW 16.6 H Plt Count Lymph % (Auto) Harper % (Auto) 10.7 H Lymph # Harper # 1.5 H Baso # Seg Neutrophils % 73.6 H Seg Neuts % (Manual) Lymphocytes % (Manual) Monocytes % (Manual) Eosinophils % (Manual) Basophils % (Manual) Nucleated RBC % Seg Neutrophils # 10.5 H Seg Neutrophils # Man Lymphocytes # (Manual) Monocytes # (Manual) Eosinophils # (Manual) Basophils # (Manual) PT INR Fibrinogen dRVVT Confirm Interp Factor V Activity POC ABG pH POC ABG pCO2 POC ABG pO2 ABG pO2 ABG HCO3 ABG Base Excess ABG Hemoglobin Oxyhemoglobin Sodium 132 L Potassium Chloride 94.7 L Carbon Dioxide BUN 51 H Creatinine 1.6 H Glucose 130 H POC Glucose Lactic Acid Calcium 8.3 L Ionized Calcium Phosphorus 1.60 L D Magnesium Direct Bilirubin AST ALT Alkaline Phosphatase Lactate Dehydrogenase Troponin T C-Reactive Protein Total Protein Albumin Prealbumin Triglycerides Cholesterol LDL Cholesterol Direct HDL Cholesterol 25-OH Vitamin D Total PTH Intact Urine pH Urine WBC (Auto) Urine Creatinine Urine Total Protein Fluid Total Protein Vancomycin Trough Rheumatoid Factor Complement C4 Miscellaneous Test Crossmatch 10/25/16 10/25/16 10/25/16 04:32 11:48 17:22 WBC RBC Hgb Hct MCV MCH MCHC RDW Plt Count Lymph % (Auto) Harper % (Auto) Lymph # Harper # Baso # Seg Neutrophils % Seg Neuts % (Manual) Lymphocytes % (Manual) Monocytes % (Manual) Eosinophils % (Manual) Basophils % (Manual) Nucleated RBC % Seg Neutrophils # Seg Neutrophils # Man Lymphocytes # (Manual) Monocytes # (Manual) Eosinophils # (Manual) Basophils # (Manual) PT INR Fibrinogen dRVVT Confirm Interp Factor V Activity POC ABG pH POC ABG pCO2 POC ABG pO2 ABG pO2 ABG HCO3 ABG Base Excess ABG Hemoglobin Oxyhemoglobin Sodium Potassium Chloride Carbon Dioxide BUN Creatinine Glucose POC Glucose 124 H 171 H 120 H Lactic Acid Calcium Ionized Calcium Phosphorus Magnesium Direct Bilirubin AST ALT Alkaline Phosphatase Lactate Dehydrogenase Troponin T C-Reactive Protein Total Protein Albumin Prealbumin Triglycerides Cholesterol LDL Cholesterol Direct HDL Cholesterol 25-OH Vitamin D Total PTH Intact Urine pH Urine WBC (Auto) Urine Creatinine Urine Total Protein Fluid Total Protein Vancomycin Trough Rheumatoid Factor Complement C4 Miscellaneous Test Crossmatch 10/26/16 10/26/16 10/26/16 04:54 07:06 07:06 WBC 16.9 H RBC 3.06 L Hgb 9.1 L Hct 26.9 L MCV MCH MCHC RDW 16.9 H Plt Count Lymph % (Auto) Harper % (Auto) Lymph # Harper # Baso # Seg Neutrophils % Seg Neuts % (Manual) 71.0 H Lymphocytes % (Manual) 5.0 L Monocytes % (Manual) 12.0 H Eosinophils % (Manual) Basophils % (Manual) Nucleated RBC % Seg Neutrophils # Seg Neutrophils # Man 12.0 H Lymphocytes # (Manual) 0.8 L Monocytes # (Manual) 2.0 H Eosinophils # (Manual) Basophils # (Manual) PT INR Fibrinogen dRVVT Confirm Interp Factor V Activity POC ABG pH POC ABG pCO2 POC ABG pO2 ABG pO2 ABG HCO3 ABG Base Excess ABG Hemoglobin Oxyhemoglobin Sodium 135 L Potassium Chloride 97.1 L Carbon Dioxide BUN 73 H Creatinine 2.2 H Glucose 117 H POC Glucose 123 H Lactic Acid Calcium Ionized Calcium Phosphorus 1.70 L Magnesium Direct Bilirubin AST ALT Alkaline Phosphatase Lactate Dehydrogenase Troponin T C-Reactive Protein Total Protein Albumin Prealbumin Triglycerides Cholesterol LDL Cholesterol Direct HDL Cholesterol 25-OH Vitamin D Total PTH Intact Urine pH Urine WBC (Auto) Urine Creatinine Urine Total Protein Fluid Total Protein Vancomycin Trough Rheumatoid Factor Complement C4 Miscellaneous Test Crossmatch 10/26/16 10/26/16 10/26/16 12:12 17:29 23:42 WBC RBC Hgb Hct MCV MCH MCHC RDW Plt Count Lymph % (Auto) Harper % (Auto) Lymph # Harper # Baso # Seg Neutrophils % Seg Neuts % (Manual) Lymphocytes % (Manual) Monocytes % (Manual) Eosinophils % (Manual) Basophils % (Manual) Nucleated RBC % Seg Neutrophils # Seg Neutrophils # Man Lymphocytes # (Manual) Monocytes # (Manual) Eosinophils # (Manual) Basophils # (Manual) PT INR Fibrinogen dRVVT Confirm Interp Factor V Activity POC ABG pH POC ABG pCO2 POC ABG pO2 ABG pO2 ABG HCO3 ABG Base Excess ABG Hemoglobin Oxyhemoglobin Sodium Potassium Chloride Carbon Dioxide BUN Creatinine Glucose POC Glucose 126 H 161 H 118 H Lactic Acid Calcium Ionized Calcium Phosphorus Magnesium Direct Bilirubin AST ALT Alkaline Phosphatase Lactate Dehydrogenase Troponin T C-Reactive Protein Total Protein Albumin Prealbumin Triglycerides Cholesterol LDL Cholesterol Direct HDL Cholesterol 25-OH Vitamin D Total PTH Intact Urine pH Urine WBC (Auto) Urine Creatinine Urine Total Protein Fluid Total Protein Vancomycin Trough Rheumatoid Factor Complement C4 Miscellaneous Test Crossmatch 10/27/16 10/27/16 10/27/16 05:03 06:30 06:30 WBC 13.9 H RBC 3.09 L Hgb 9.2 L Hct 27.5 L MCV MCH MCHC RDW 17.0 H Plt Count Lymph % (Auto) Harper % (Auto) Lymph # Harper # Baso # Seg Neutrophils % Seg Neuts % (Manual) 78.0 H Lymphocytes % (Manual) Monocytes % (Manual) Eosinophils % (Manual) Basophils % (Manual) Nucleated RBC % 2.0 H Seg Neutrophils # Seg Neutrophils # Man 10.8 H Lymphocytes # (Manual) Monocytes # (Manual) 1.0 H Eosinophils # (Manual) Basophils # (Manual) PT INR Fibrinogen dRVVT Confirm Interp Factor V Activity POC ABG pH POC ABG pCO2 POC ABG pO2 ABG pO2 ABG HCO3 ABG Base Excess ABG Hemoglobin Oxyhemoglobin Sodium Potassium Chloride Carbon Dioxide BUN 40 H Creatinine 1.5 H Glucose 135 H POC Glucose 107 H Lactic Acid Calcium 8.3 L Ionized Calcium Phosphorus 1.30 L D Magnesium Direct Bilirubin AST ALT Alkaline Phosphatase Lactate Dehydrogenase Troponin T C-Reactive Protein Total Protein Albumin Prealbumin Triglycerides Cholesterol LDL Cholesterol Direct HDL Cholesterol 25-OH Vitamin D Total PTH Intact Urine pH Urine WBC (Auto) Urine Creatinine Urine Total Protein Fluid Total Protein Vancomycin Trough Rheumatoid Factor Complement C4 Miscellaneous Test Crossmatch 10/27/16 10/27/16 10/27/16 13:27 18:07 23:40 WBC RBC Hgb Hct MCV MCH MCHC RDW Plt Count Lymph % (Auto) Harper % (Auto) Lymph # Harper # Baso # Seg Neutrophils % Seg Neuts % (Manual) Lymphocytes % (Manual) Monocytes % (Manual) Eosinophils % (Manual) Basophils % (Manual) Nucleated RBC % Seg Neutrophils # Seg Neutrophils # Man Lymphocytes # (Manual) Monocytes # (Manual) Eosinophils # (Manual) Basophils # (Manual) PT INR Fibrinogen dRVVT Confirm Interp Factor V Activity POC ABG pH POC ABG pCO2 POC ABG pO2 ABG pO2 ABG HCO3 ABG Base Excess ABG Hemoglobin Oxyhemoglobin Sodium Potassium Chloride Carbon Dioxide BUN Creatinine Glucose POC Glucose 117 H 121 H 118 H Lactic Acid Calcium Ionized Calcium Phosphorus Magnesium Direct Bilirubin AST ALT Alkaline Phosphatase Lactate Dehydrogenase Troponin T C-Reactive Protein Total Protein Albumin Prealbumin Triglycerides Cholesterol LDL Cholesterol Direct HDL Cholesterol 25-OH Vitamin D Total PTH Intact Urine pH Urine WBC (Auto) Urine Creatinine Urine Total Protein Fluid Total Protein Vancomycin Trough Rheumatoid Factor Complement C4 Miscellaneous Test Crossmatch 10/28/16 10/28/16 10/28/16 05:48 06:45 06:45 WBC 14.7 H RBC 3.05 L Hgb 9.0 L Hct 26.9 L MCV MCH MCHC RDW 16.8 H Plt Count Lymph % (Auto) 8.2 L Harper % (Auto) 8.4 H Lymph # Harper # 1.2 H Baso # Seg Neutrophils % 81.9 H Seg Neuts % (Manual) Lymphocytes % (Manual) Monocytes % (Manual) Eosinophils % (Manual) Basophils % (Manual) Nucleated RBC % Seg Neutrophils # 12.1 H Seg Neutrophils # Man Lymphocytes # (Manual) Monocytes # (Manual) Eosinophils # (Manual) Basophils # (Manual) PT INR Fibrinogen dRVVT Confirm Interp Factor V Activity POC ABG pH POC ABG pCO2 POC ABG pO2 ABG pO2 ABG HCO3 ABG Base Excess ABG Hemoglobin Oxyhemoglobin Sodium Potassium Chloride Carbon Dioxide BUN 60 H Creatinine 1.9 H Glucose 120 H POC Glucose 114 H Lactic Acid Calcium Ionized Calcium Phosphorus Magnesium Direct Bilirubin AST ALT Alkaline Phosphatase Lactate Dehydrogenase Troponin T C-Reactive Protein Total Protein Albumin Prealbumin Triglycerides Cholesterol LDL Cholesterol Direct HDL Cholesterol 25-OH Vitamin D Total PTH Intact Urine pH Urine WBC (Auto) Urine Creatinine Urine Total Protein Fluid Total Protein Vancomycin Trough Rheumatoid Factor Complement C4 Miscellaneous Test Crossmatch 10/28/16 10/28/16 10/29/16 17:08 23:50 05:10 WBC RBC Hgb Hct MCV MCH MCHC RDW Plt Count Lymph % (Auto) Harper % (Auto) Lymph # Harper # Baso # Seg Neutrophils % Seg Neuts % (Manual) Lymphocytes % (Manual) Monocytes % (Manual) Eosinophils % (Manual) Basophils % (Manual) Nucleated RBC % Seg Neutrophils # Seg Neutrophils # Man Lymphocytes # (Manual) Monocytes # (Manual) Eosinophils # (Manual) Basophils # (Manual) PT INR Fibrinogen dRVVT Confirm Interp Factor V Activity POC ABG pH POC ABG pCO2 POC ABG pO2 ABG pO2 ABG HCO3 ABG Base Excess ABG Hemoglobin Oxyhemoglobin Sodium Potassium Chloride Carbon Dioxide BUN Creatinine Glucose POC Glucose 109 H 110 H 124 H Lactic Acid Calcium Ionized Calcium Phosphorus Magnesium Direct Bilirubin AST ALT Alkaline Phosphatase Lactate Dehydrogenase Troponin T C-Reactive Protein Total Protein Albumin Prealbumin Triglycerides Cholesterol LDL Cholesterol Direct HDL Cholesterol 25-OH Vitamin D Total PTH Intact Urine pH Urine WBC (Auto) Urine Creatinine Urine Total Protein Fluid Total Protein Vancomycin Trough Rheumatoid Factor Complement C4 Miscellaneous Test Crossmatch 10/29/16 10/29/16 10/29/16 07:45 07:45 12:19 WBC 14.7 H RBC 3.15 L Hgb 9.3 L Hct 28.9 L MCV MCH MCHC RDW 17.0 H Plt Count Lymph % (Auto) 11.9 L Harper % (Auto) 8.6 H Lymph # Harper # 1.3 H Baso # Seg Neutrophils % 78.1 H Seg Neuts % (Manual) Lymphocytes % (Manual) Monocytes % (Manual) Eosinophils % (Manual) Basophils % (Manual) Nucleated RBC % Seg Neutrophils # 11.4 H Seg Neutrophils # Man Lymphocytes # (Manual) Monocytes # (Manual) Eosinophils # (Manual) Basophils # (Manual) PT INR Fibrinogen dRVVT Confirm Interp Factor V Activity POC ABG pH POC ABG pCO2 POC ABG pO2 ABG pO2 ABG HCO3 ABG Base Excess ABG Hemoglobin Oxyhemoglobin Sodium Potassium 5.1 H Chloride Carbon Dioxide 19 L BUN 78 H Creatinine 2.2 H Glucose 116 H POC Glucose 118 H Lactic Acid Calcium Ionized Calcium Phosphorus Magnesium Direct Bilirubin AST ALT Alkaline Phosphatase Lactate Dehydrogenase Troponin T C-Reactive Protein Total Protein Albumin Prealbumin Triglycerides Cholesterol LDL Cholesterol Direct HDL Cholesterol 25-OH Vitamin D Total PTH Intact Urine pH Urine WBC (Auto) Urine Creatinine Urine Total Protein Fluid Total Protein Vancomycin Trough Rheumatoid Factor Complement C4 Miscellaneous Test Crossmatch 10/29/16 10/30/16 10/30/16 17:49 01:52 03:28 WBC RBC Hgb Hct MCV MCH MCHC RDW Plt Count Lymph % (Auto) Harper % (Auto) Lymph # Harper # Baso # Seg Neutrophils % Seg Neuts % (Manual) Lymphocytes % (Manual) Monocytes % (Manual) Eosinophils % (Manual) Basophils % (Manual) Nucleated RBC % Seg Neutrophils # Seg Neutrophils # Man Lymphocytes # (Manual) Monocytes # (Manual) Eosinophils # (Manual) Basophils # (Manual) PT INR Fibrinogen dRVVT Confirm Interp Factor V Activity POC ABG pH POC ABG pCO2 POC ABG pO2 ABG pO2 ABG HCO3 ABG Base Excess ABG Hemoglobin Oxyhemoglobin Sodium Potassium 5.4 H Chloride 97.5 L Carbon Dioxide 19 L BUN 90 H Creatinine 2.5 H Glucose POC Glucose 120 H 129 H Lactic Acid Calcium Ionized Calcium Phosphorus 5.20 H Magnesium Direct Bilirubin AST ALT Alkaline Phosphatase Lactate Dehydrogenase Troponin T C-Reactive Protein Total Protein Albumin Prealbumin Triglycerides Cholesterol LDL Cholesterol Direct HDL Cholesterol 25-OH Vitamin D Total PTH Intact Urine pH Urine WBC (Auto) Urine Creatinine Urine Total Protein Fluid Total Protein Vancomycin Trough Rheumatoid Factor Complement C4 Miscellaneous Test Crossmatch 10/30/16 10/30/16 10/30/16 03:28 08:19 08:19 WBC 11.6 H 15.9 H RBC 2.75 L 2.82 L Hgb 7.9 L 8.3 L Hct 24.2 L 25.2 L MCV MCH MCHC RDW 16.7 H 17.2 H Plt Count Lymph % (Auto) Harper % (Auto) 9.8 H Lymph # Harper # 1.1 H Baso # Seg Neutrophils % 74.2 H Seg Neuts % (Manual) Lymphocytes % (Manual) Monocytes % (Manual) Eosinophils % (Manual) Basophils % (Manual) Nucleated RBC % Seg Neutrophils # 8.6 H Seg Neutrophils # Man Lymphocytes # (Manual) Monocytes # (Manual) Eosinophils # (Manual) Basophils # (Manual) PT INR Fibrinogen dRVVT Confirm Interp Factor V Activity POC ABG pH POC ABG pCO2 POC ABG pO2 ABG pO2 ABG HCO3 ABG Base Excess ABG Hemoglobin Oxyhemoglobin Sodium Potassium 5.3 H Chloride 97.4 L Carbon Dioxide 19 L BUN 93 H Creatinine 2.6 H Glucose POC Glucose Lactic Acid Calcium Ionized Calcium Phosphorus Magnesium Direct Bilirubin AST ALT Alkaline Phosphatase Lactate Dehydrogenase Troponin T C-Reactive Protein Total Protein Albumin Prealbumin Triglycerides Cholesterol LDL Cholesterol Direct HDL Cholesterol 25-OH Vitamin D Total PTH Intact Urine pH Urine WBC (Auto) Urine Creatinine Urine Total Protein Fluid Total Protein Vancomycin Trough Rheumatoid Factor Complement C4 Miscellaneous Test Crossmatch 10/30/16 10/30/16 10/31/16 17:11 23:56 00:40 WBC RBC Hgb Hct MCV MCH MCHC RDW Plt Count Lymph % (Auto) Harper % (Auto) Lymph # Harper # Baso # Seg Neutrophils % Seg Neuts % (Manual) Lymphocytes % (Manual) Monocytes % (Manual) Eosinophils % (Manual) Basophils % (Manual) Nucleated RBC % Seg Neutrophils # Seg Neutrophils # Man Lymphocytes # (Manual) Monocytes # (Manual) Eosinophils # (Manual) Basophils # (Manual) PT INR Fibrinogen dRVVT Confirm Interp Factor V Activity POC ABG pH POC ABG pCO2 POC ABG pO2 ABG pO2 ABG HCO3 ABG Base Excess ABG Hemoglobin Oxyhemoglobin Sodium Potassium Chloride Carbon Dioxide BUN Creatinine Glucose POC Glucose 106 H 117 H 120 H Lactic Acid Calcium Ionized Calcium Phosphorus Magnesium Direct Bilirubin AST ALT Alkaline Phosphatase Lactate Dehydrogenase Troponin T C-Reactive Protein Total Protein Albumin Prealbumin Triglycerides Cholesterol LDL Cholesterol Direct HDL Cholesterol 25-OH Vitamin D Total PTH Intact Urine pH Urine WBC (Auto) Urine Creatinine Urine Total Protein Fluid Total Protein Vancomycin Trough Rheumatoid Factor Complement C4 Miscellaneous Test Crossmatch 10/31/16 10/31/16 10/31/16 05:43 07:15 07:15 WBC 12.1 H RBC 2.63 L Hgb 7.7 L Hct 23.3 L MCV MCH MCHC RDW 16.7 H Plt Count Lymph % (Auto) 11.7 L Harper % (Auto) 7.7 H Lymph # Harper # 0.9 H Baso # Seg Neutrophils % 78.0 H Seg Neuts % (Manual) Lymphocytes % (Manual) Monocytes % (Manual) Eosinophils % (Manual) Basophils % (Manual) Nucleated RBC % Seg Neutrophils # 9.4 H Seg Neutrophils # Man Lymphocytes # (Manual) Monocytes # (Manual) Eosinophils # (Manual) Basophils # (Manual) PT INR Fibrinogen dRVVT Confirm Interp Factor V Activity POC ABG pH POC ABG pCO2 POC ABG pO2 ABG pO2 ABG HCO3 ABG Base Excess ABG Hemoglobin Oxyhemoglobin Sodium Potassium Chloride 96.4 L Carbon Dioxide 21 L BUN 99 H Creatinine 2.6 H Glucose 144 H POC Glucose 125 H Lactic Acid Calcium Ionized Calcium Phosphorus 4.80 H Magnesium Direct Bilirubin AST ALT Alkaline Phosphatase Lactate Dehydrogenase Troponin T C-Reactive Protein Total Protein Albumin Prealbumin Triglycerides Cholesterol LDL Cholesterol Direct HDL Cholesterol 25-OH Vitamin D Total PTH Intact Urine pH Urine WBC (Auto) Urine Creatinine Urine Total Protein Fluid Total Protein Vancomycin Trough Rheumatoid Factor Complement C4 Miscellaneous Test Crossmatch 10/31/16 10/31/16 11/01/16 11:46 18:34 00:20 WBC RBC Hgb Hct MCV MCH MCHC RDW Plt Count Lymph % (Auto) Harper % (Auto) Lymph # Harper # Baso # Seg Neutrophils % Seg Neuts % (Manual) Lymphocytes % (Manual) Monocytes % (Manual) Eosinophils % (Manual) Basophils % (Manual) Nucleated RBC % Seg Neutrophils # Seg Neutrophils # Man Lymphocytes # (Manual) Monocytes # (Manual) Eosinophils # (Manual) Basophils # (Manual) PT INR Fibrinogen dRVVT Confirm Interp Factor V Activity POC ABG pH POC ABG pCO2 POC ABG pO2 ABG pO2 ABG HCO3 ABG Base Excess ABG Hemoglobin Oxyhemoglobin Sodium Potassium Chloride Carbon Dioxide BUN Creatinine Glucose POC Glucose 159 H 140 H 132 H Lactic Acid Calcium Ionized Calcium Phosphorus Magnesium Direct Bilirubin AST ALT Alkaline Phosphatase Lactate Dehydrogenase Troponin T C-Reactive Protein Total Protein Albumin Prealbumin Triglycerides Cholesterol LDL Cholesterol Direct HDL Cholesterol 25-OH Vitamin D Total PTH Intact Urine pH Urine WBC (Auto) Urine Creatinine Urine Total Protein Fluid Total Protein Vancomycin Trough Rheumatoid Factor Complement C4 Miscellaneous Test Crossmatch 11/01/16 11/01/16 11/01/16 04:55 04:55 06:11 WBC 11.2 H RBC 2.68 L Hgb 7.5 L Hct 23.7 L MCV MCH MCHC RDW 16.1 H Plt Count Lymph % (Auto) Harper % (Auto) 9.8 H Lymph # Harper # 1.1 H Baso # Seg Neutrophils % 70.8 H Seg Neuts % (Manual) Lymphocytes % (Manual) Monocytes % (Manual) Eosinophils % (Manual) Basophils % (Manual) Nucleated RBC % Seg Neutrophils # 7.9 H Seg Neutrophils # Man Lymphocytes # (Manual) Monocytes # (Manual) Eosinophils # (Manual) Basophils # (Manual) PT INR Fibrinogen dRVVT Confirm Interp Factor V Activity POC ABG pH POC ABG pCO2 POC ABG pO2 ABG pO2 ABG HCO3 ABG Base Excess ABG Hemoglobin Oxyhemoglobin Sodium Potassium 3.3 L D Chloride Carbon Dioxide BUN 61 H Creatinine 1.9 H Glucose 114 H POC Glucose 115 H Lactic Acid Calcium Ionized Calcium Phosphorus 1.80 L D Magnesium Direct Bilirubin AST ALT Alkaline Phosphatase Lactate Dehydrogenase Troponin T C-Reactive Protein Total Protein Albumin Prealbumin Triglycerides Cholesterol LDL Cholesterol Direct HDL Cholesterol 25-OH Vitamin D Total PTH Intact Urine pH Urine WBC (Auto) Urine Creatinine Urine Total Protein Fluid Total Protein Vancomycin Trough Rheumatoid Factor Complement C4 Miscellaneous Test Crossmatch 11/01/16 11/01/16 11/01/16 12:29 18:23 23:58 WBC RBC Hgb Hct MCV MCH MCHC RDW Plt Count Lymph % (Auto) Harper % (Auto) Lymph # Harper # Baso # Seg Neutrophils % Seg Neuts % (Manual) Lymphocytes % (Manual) Monocytes % (Manual) Eosinophils % (Manual) Basophils % (Manual) Nucleated RBC % Seg Neutrophils # Seg Neutrophils # Man Lymphocytes # (Manual) Monocytes # (Manual) Eosinophils # (Manual) Basophils # (Manual) PT INR Fibrinogen dRVVT Confirm Interp Factor V Activity POC ABG pH POC ABG pCO2 POC ABG pO2 ABG pO2 ABG HCO3 ABG Base Excess ABG Hemoglobin Oxyhemoglobin Sodium Potassium Chloride Carbon Dioxide BUN Creatinine Glucose POC Glucose 142 H 143 H 128 H Lactic Acid Calcium Ionized Calcium Phosphorus Magnesium Direct Bilirubin AST ALT Alkaline Phosphatase Lactate Dehydrogenase Troponin T C-Reactive Protein Total Protein Albumin Prealbumin Triglycerides Cholesterol LDL Cholesterol Direct HDL Cholesterol 25-OH Vitamin D Total PTH Intact Urine pH Urine WBC (Auto) Urine Creatinine Urine Total Protein Fluid Total Protein Vancomycin Trough Rheumatoid Factor Complement C4 Miscellaneous Test Crossmatch 11/02/16 11/02/16 11/02/16 04:16 05:29 11:58 WBC RBC Hgb Hct MCV MCH MCHC RDW Plt Count Lymph % (Auto) Harper % (Auto) Lymph # Harper # Baso # Seg Neutrophils % Seg Neuts % (Manual) Lymphocytes % (Manual) Monocytes % (Manual) Eosinophils % (Manual) Basophils % (Manual) Nucleated RBC % Seg Neutrophils # Seg Neutrophils # Man Lymphocytes # (Manual) Monocytes # (Manual) Eosinophils # (Manual) Basophils # (Manual) PT INR Fibrinogen dRVVT Confirm Interp Factor V Activity POC ABG pH POC ABG pCO2 POC ABG pO2 ABG pO2 ABG HCO3 ABG Base Excess ABG Hemoglobin Oxyhemoglobin Sodium Potassium 3.1 L Chloride Carbon Dioxide BUN 73 H Creatinine 2.3 H Glucose 112 H POC Glucose 135 H 149 H Lactic Acid Calcium Ionized Calcium Phosphorus Magnesium Direct Bilirubin AST ALT Alkaline Phosphatase Lactate Dehydrogenase Troponin T C-Reactive Protein Total Protein Albumin Prealbumin Triglycerides Cholesterol LDL Cholesterol Direct HDL Cholesterol 25-OH Vitamin D Total PTH Intact Urine pH Urine WBC (Auto) Urine Creatinine Urine Total Protein Fluid Total Protein Vancomycin Trough Rheumatoid Factor Complement C4 Miscellaneous Test Crossmatch 11/02/16 11/02/16 11/03/16 17:42 22:54 06:00 WBC RBC Hgb Hct MCV MCH MCHC RDW Plt Count Lymph % (Auto) Harper % (Auto) Lymph # Harper # Baso # Seg Neutrophils % Seg Neuts % (Manual) Lymphocytes % (Manual) Monocytes % (Manual) Eosinophils % (Manual) Basophils % (Manual) Nucleated RBC % Seg Neutrophils # Seg Neutrophils # Man Lymphocytes # (Manual) Monocytes # (Manual) Eosinophils # (Manual) Basophils # (Manual) PT INR Fibrinogen dRVVT Confirm Interp Factor V Activity POC ABG pH POC ABG pCO2 POC ABG pO2 ABG pO2 ABG HCO3 ABG Base Excess ABG Hemoglobin Oxyhemoglobin Sodium Potassium Chloride 96.7 L Carbon Dioxide BUN 41 H Creatinine 1.5 H Glucose 145 H POC Glucose 182 H 115 H Lactic Acid Calcium Ionized Calcium Phosphorus 1.60 L D Magnesium 1.50 L Direct Bilirubin AST ALT Alkaline Phosphatase Lactate Dehydrogenase Troponin T C-Reactive Protein Total Protein Albumin Prealbumin Triglycerides Cholesterol LDL Cholesterol Direct HDL Cholesterol 25-OH Vitamin D Total PTH Intact Urine pH Urine WBC (Auto) Urine Creatinine Urine Total Protein Fluid Total Protein Vancomycin Trough Rheumatoid Factor Complement C4 Miscellaneous Test Crossmatch 11/03/16 11/03/16 11/03/16 11:53 17:45 23:37 WBC RBC Hgb Hct MCV MCH MCHC RDW Plt Count Lymph % (Auto) Harper % (Auto) Lymph # Harper # Baso # Seg Neutrophils % Seg Neuts % (Manual) Lymphocytes % (Manual) Monocytes % (Manual) Eosinophils % (Manual) Basophils % (Manual) Nucleated RBC % Seg Neutrophils # Seg Neutrophils # Man Lymphocytes # (Manual) Monocytes # (Manual) Eosinophils # (Manual) Basophils # (Manual) PT INR Fibrinogen dRVVT Confirm Interp Factor V Activity POC ABG pH POC ABG pCO2 POC ABG pO2 ABG pO2 ABG HCO3 ABG Base Excess ABG Hemoglobin Oxyhemoglobin Sodium Potassium Chloride Carbon Dioxide BUN Creatinine Glucose POC Glucose 131 H 134 H 113 H Lactic Acid Calcium Ionized Calcium Phosphorus Magnesium Direct Bilirubin AST ALT Alkaline Phosphatase Lactate Dehydrogenase Troponin T C-Reactive Protein Total Protein Albumin Prealbumin Triglycerides Cholesterol LDL Cholesterol Direct HDL Cholesterol 25-OH Vitamin D Total PTH Intact Urine pH Urine WBC (Auto) Urine Creatinine Urine Total Protein Fluid Total Protein Vancomycin Trough Rheumatoid Factor Complement C4 Miscellaneous Test Crossmatch 11/04/16 11/04/16 11/04/16 05:41 06:00 12:10 WBC RBC Hgb Hct MCV MCH MCHC RDW Plt Count Lymph % (Auto) Harper % (Auto) Lymph # Harper # Baso # Seg Neutrophils % Seg Neuts % (Manual) Lymphocytes % (Manual) Monocytes % (Manual) Eosinophils % (Manual) Basophils % (Manual) Nucleated RBC % Seg Neutrophils # Seg Neutrophils # Man Lymphocytes # (Manual) Monocytes # (Manual) Eosinophils # (Manual) Basophils # (Manual) PT INR Fibrinogen dRVVT Confirm Interp Factor V Activity POC ABG pH POC ABG pCO2 POC ABG pO2 ABG pO2 ABG HCO3 ABG Base Excess ABG Hemoglobin Oxyhemoglobin Sodium Potassium Chloride 96.7 L Carbon Dioxide BUN 52 H Creatinine 1.9 H Glucose 126 H POC Glucose 137 H 191 H Lactic Acid Calcium Ionized Calcium Phosphorus Magnesium Direct Bilirubin AST ALT Alkaline Phosphatase Lactate Dehydrogenase Troponin T C-Reactive Protein Total Protein Albumin Prealbumin Triglycerides Cholesterol LDL Cholesterol Direct HDL Cholesterol 25-OH Vitamin D Total PTH Intact Urine pH Urine WBC (Auto) Urine Creatinine Urine Total Protein Fluid Total Protein Vancomycin Trough Rheumatoid Factor Complement C4 Miscellaneous Test Crossmatch 11/04/16 11/05/16 11/05/16 22:57 03:10 05:10 WBC RBC Hgb Hct MCV MCH MCHC RDW Plt Count Lymph % (Auto) Harper % (Auto) Lymph # Harper # Baso # Seg Neutrophils % Seg Neuts % (Manual) Lymphocytes % (Manual) Monocytes % (Manual) Eosinophils % (Manual) Basophils % (Manual) Nucleated RBC % Seg Neutrophils # Seg Neutrophils # Man Lymphocytes # (Manual) Monocytes # (Manual) Eosinophils # (Manual) Basophils # (Manual) PT INR Fibrinogen dRVVT Confirm Interp Factor V Activity POC ABG pH POC ABG pCO2 POC ABG pO2 ABG pO2 ABG HCO3 ABG Base Excess ABG Hemoglobin Oxyhemoglobin Sodium 136 L Potassium Chloride 97.2 L Carbon Dioxide BUN 32 H Creatinine 1.3 H Glucose 123 H POC Glucose 125 H 108 H Lactic Acid Calcium 7.8 L Ionized Calcium Phosphorus Magnesium Direct Bilirubin AST ALT Alkaline Phosphatase Lactate Dehydrogenase Troponin T C-Reactive Protein Total Protein Albumin Prealbumin Triglycerides Cholesterol LDL Cholesterol Direct HDL Cholesterol 25-OH Vitamin D Total PTH Intact Urine pH Urine WBC (Auto) Urine Creatinine Urine Total Protein Fluid Total Protein Vancomycin Trough Rheumatoid Factor Complement C4 Miscellaneous Test Crossmatch 11/05/16 11/05/16 11/05/16 12:23 13:09 13:25 WBC RBC Hgb Hct MCV MCH MCHC RDW Plt Count Lymph % (Auto) Harper % (Auto) Lymph # Harper # Baso # Seg Neutrophils % Seg Neuts % (Manual) Lymphocytes % (Manual) Monocytes % (Manual) Eosinophils % (Manual) Basophils % (Manual) Nucleated RBC % Seg Neutrophils # Seg Neutrophils # Man Lymphocytes # (Manual) Monocytes # (Manual) Eosinophils # (Manual) Basophils # (Manual) PT INR Fibrinogen dRVVT Confirm Interp Factor V Activity POC ABG pH POC ABG pCO2 POC ABG pO2 ABG pO2 ABG HCO3 ABG Base Excess ABG Hemoglobin Oxyhemoglobin Sodium Potassium Chloride Carbon Dioxide BUN Creatinine Glucose POC Glucose 124 H Lactic Acid Calcium Ionized Calcium Phosphorus Magnesium Direct Bilirubin AST ALT Alkaline Phosphatase Lactate Dehydrogenase Troponin T C-Reactive Protein 11.40 H Total Protein Albumin Prealbumin Triglycerides Cholesterol LDL Cholesterol Direct HDL Cholesterol 25-OH Vitamin D Total PTH Intact Urine pH 9.0 H Urine WBC (Auto) Urine Creatinine Urine Total Protein Fluid Total Protein Vancomycin Trough Rheumatoid Factor Complement C4 Miscellaneous Test Crossmatch 11/05/16 11/05/16 11/05/16 13:25 17:54 23:42 WBC RBC Hgb Hct MCV MCH MCHC RDW Plt Count Lymph % (Auto) Harper % (Auto) Lymph # Harper # Baso # Seg Neutrophils % Seg Neuts % (Manual) Lymphocytes % (Manual) Monocytes % (Manual) Eosinophils % (Manual) Basophils % (Manual) Nucleated RBC % Seg Neutrophils # Seg Neutrophils # Man Lymphocytes # (Manual) Monocytes # (Manual) Eosinophils # (Manual) Basophils # (Manual) PT INR Fibrinogen dRVVT Confirm Interp Factor V Activity POC ABG pH POC ABG pCO2 POC ABG pO2 ABG pO2 ABG HCO3 ABG Base Excess ABG Hemoglobin Oxyhemoglobin Sodium Potassium Chloride Carbon Dioxide BUN Creatinine Glucose POC Glucose 114 H 134 H Lactic Acid Calcium Ionized Calcium Phosphorus Magnesium Direct Bilirubin AST ALT Alkaline Phosphatase Lactate Dehydrogenase Troponin T C-Reactive Protein Total Protein Albumin Prealbumin Triglycerides Cholesterol LDL Cholesterol Direct HDL Cholesterol 25-OH Vitamin D Total PTH Intact Urine pH Urine WBC (Auto) Urine Creatinine Urine Total Protein Fluid Total Protein Vancomycin Trough Rheumatoid Factor Complement C4 Miscellaneous Test Flexitest 1 H Crossmatch 11/06/16 11/06/16 11/06/16 04:56 06:25 06:25 WBC RBC 2.50 L Hgb 7.3 L Hct 22.5 L MCV MCH MCHC RDW 16.9 H Plt Count Lymph % (Auto) Harper % (Auto) 10.5 H Lymph # Harper # 1.1 H Baso # Seg Neutrophils % Seg Neuts % (Manual) Lymphocytes % (Manual) Monocytes % (Manual) Eosinophils % (Manual) Basophils % (Manual) Nucleated RBC % Seg Neutrophils # Seg Neutrophils # Man Lymphocytes # (Manual) Monocytes # (Manual) Eosinophils # (Manual) Basophils # (Manual) PT INR Fibrinogen dRVVT Confirm Interp Factor V Activity POC ABG pH POC ABG pCO2 POC ABG pO2 ABG pO2 ABG HCO3 ABG Base Excess ABG Hemoglobin Oxyhemoglobin Sodium Potassium 5.1 H Chloride 95.9 L Carbon Dioxide BUN 52 H Creatinine 1.8 H Glucose 117 H POC Glucose 120 H Lactic Acid Calcium Ionized Calcium Phosphorus Magnesium Direct Bilirubin AST 103 H ALT 77 H Alkaline Phosphatase 285 H Lactate Dehydrogenase Troponin T C-Reactive Protein Total Protein 6.2 L Albumin 1.8 L Prealbumin 0.180 L Triglycerides Cholesterol LDL Cholesterol Direct HDL Cholesterol 25-OH Vitamin D Total PTH Intact Urine pH Urine WBC (Auto) Urine Creatinine Urine Total Protein Fluid Total Protein Vancomycin Trough Rheumatoid Factor Complement C4 Miscellaneous Test Crossmatch 11/06/16 11/06/16 11/06/16 11:56 17:14 23:52 WBC RBC Hgb Hct MCV MCH MCHC RDW Plt Count Lymph % (Auto) Harper % (Auto) Lymph # Harper # Baso # Seg Neutrophils % Seg Neuts % (Manual) Lymphocytes % (Manual) Monocytes % (Manual) Eosinophils % (Manual) Basophils % (Manual) Nucleated RBC % Seg Neutrophils # Seg Neutrophils # Man Lymphocytes # (Manual) Monocytes # (Manual) Eosinophils # (Manual) Basophils # (Manual) PT INR Fibrinogen dRVVT Confirm Interp Factor V Activity POC ABG pH POC ABG pCO2 POC ABG pO2 ABG pO2 ABG HCO3 ABG Base Excess ABG Hemoglobin Oxyhemoglobin Sodium Potassium Chloride Carbon Dioxide BUN Creatinine Glucose POC Glucose 141 H 125 H 130 H Lactic Acid Calcium Ionized Calcium Phosphorus Magnesium Direct Bilirubin AST ALT Alkaline Phosphatase Lactate Dehydrogenase Troponin T C-Reactive Protein Total Protein Albumin Prealbumin Triglycerides Cholesterol LDL Cholesterol Direct HDL Cholesterol 25-OH Vitamin D Total PTH Intact Urine pH Urine WBC (Auto) Urine Creatinine Urine Total Protein Fluid Total Protein Vancomycin Trough Rheumatoid Factor Complement C4 Miscellaneous Test Crossmatch 11/07/16 11/07/16 11/07/16 06:30 06:30 09:37 WBC RBC 2.18 L Hgb 6.3 L Hct 19.7 L* MCV MCH MCHC RDW 16.8 H Plt Count Lymph % (Auto) Harper % (Auto) 10.0 H Lymph # Harper # 1.0 H Baso # Seg Neutrophils % Seg Neuts % (Manual) Lymphocytes % (Manual) Monocytes % (Manual) Eosinophils % (Manual) Basophils % (Manual) Nucleated RBC % Seg Neutrophils # Seg Neutrophils # Man Lymphocytes # (Manual) Monocytes # (Manual) Eosinophils # (Manual) Basophils # (Manual) PT INR Fibrinogen dRVVT Confirm Interp Factor V Activity POC ABG pH POC ABG pCO2 POC ABG pO2 ABG pO2 ABG HCO3 ABG Base Excess ABG Hemoglobin Oxyhemoglobin Sodium 135 L Potassium Chloride 95.6 L Carbon Dioxide BUN 70 H Creatinine 2.0 H Glucose 126 H POC Glucose Lactic Acid Calcium Ionized Calcium Phosphorus Magnesium Direct Bilirubin AST ALT Alkaline Phosphatase Lactate Dehydrogenase Troponin T C-Reactive Protein Total Protein Albumin Prealbumin Triglycerides Cholesterol LDL Cholesterol Direct HDL Cholesterol 25-OH Vitamin D Total PTH Intact Urine pH Urine WBC (Auto) Urine Creatinine Urine Total Protein Fluid Total Protein Vancomycin Trough Rheumatoid Factor Complement C4 Miscellaneous Test Crossmatch See Detail 11/07/16 11/07/16 11/07/16 12:52 18:51 21:26 WBC RBC Hgb Hct MCV MCH MCHC RDW Plt Count Lymph % (Auto) Harper % (Auto) Lymph # Harper # Baso # Seg Neutrophils % Seg Neuts % (Manual) Lymphocytes % (Manual) Monocytes % (Manual) Eosinophils % (Manual) Basophils % (Manual) Nucleated RBC % Seg Neutrophils # Seg Neutrophils # Man Lymphocytes # (Manual) Monocytes # (Manual) Eosinophils # (Manual) Basophils # (Manual) PT INR Fibrinogen dRVVT Confirm Interp Factor V Activity POC ABG pH 7.523 H POC ABG pCO2 34.6 L POC ABG pO2 53 L ABG pO2 ABG HCO3 ABG Base Excess ABG Hemoglobin Oxyhemoglobin Sodium Potassium Chloride Carbon Dioxide BUN Creatinine Glucose POC Glucose 142 H 155 H Lactic Acid Calcium Ionized Calcium Phosphorus Magnesium Direct Bilirubin AST ALT Alkaline Phosphatase Lactate Dehydrogenase Troponin T C-Reactive Protein Total Protein Albumin Prealbumin Triglycerides Cholesterol LDL Cholesterol Direct HDL Cholesterol 25-OH Vitamin D Total PTH Intact Urine pH Urine WBC (Auto) Urine Creatinine Urine Total Protein Fluid Total Protein Vancomycin Trough Rheumatoid Factor Complement C4 Miscellaneous Test Crossmatch 11/07/16 11/08/16 11/08/16 21:34 13:03 23:37 WBC RBC 2.63 L Hgb 7.7 L Hct 22.7 L MCV MCH MCHC RDW 17.0 H Plt Count Lymph % (Auto) Harper % (Auto) Lymph # Harper # Baso # Seg Neutrophils % Seg Neuts % (Manual) Lymphocytes % (Manual) Monocytes % (Manual) Eosinophils % (Manual) Basophils % (Manual) Nucleated RBC % Seg Neutrophils # Seg Neutrophils # Man Lymphocytes # (Manual) Monocytes # (Manual) Eosinophils # (Manual) Basophils # (Manual) PT INR Fibrinogen dRVVT Confirm Interp Factor V Activity POC ABG pH 7.478 H POC ABG pCO2 34.0 L POC ABG pO2 50 L ABG pO2 ABG HCO3 ABG Base Excess ABG Hemoglobin Oxyhemoglobin Sodium Potassium Chloride Carbon Dioxide BUN Creatinine Glucose POC Glucose 113 H Lactic Acid Calcium Ionized Calcium Phosphorus Magnesium Direct Bilirubin AST ALT Alkaline Phosphatase Lactate Dehydrogenase Troponin T C-Reactive Protein Total Protein Albumin Prealbumin Triglycerides Cholesterol LDL Cholesterol Direct HDL Cholesterol 25-OH Vitamin D Total PTH Intact Urine pH Urine WBC (Auto) Urine Creatinine Urine Total Protein Fluid Total Protein Vancomycin Trough Rheumatoid Factor Complement C4 Miscellaneous Test Crossmatch 11/09/16 11/09/16 11/09/16 04:35 10:15 18:21 WBC RBC 2.68 L Hgb 7.8 L Hct 23.3 L MCV MCH MCHC RDW 17.0 H Plt Count Lymph % (Auto) Harper % (Auto) 12.1 H Lymph # Harper # 1.1 H Baso # Seg Neutrophils % Seg Neuts % (Manual) Lymphocytes % (Manual) Monocytes % (Manual) Eosinophils % (Manual) Basophils % (Manual) Nucleated RBC % Seg Neutrophils # Seg Neutrophils # Man Lymphocytes # (Manual) Monocytes # (Manual) Eosinophils # (Manual) Basophils # (Manual) PT INR Fibrinogen dRVVT Confirm Interp Factor V Activity POC ABG pH POC ABG pCO2 POC ABG pO2 ABG pO2 ABG HCO3 ABG Base Excess ABG Hemoglobin Oxyhemoglobin Sodium Potassium Chloride Carbon Dioxide BUN 51 H Creatinine 1.8 H Glucose POC Glucose 60 L Lactic Acid Calcium 8.3 L Ionized Calcium Phosphorus Magnesium Direct Bilirubin AST ALT Alkaline Phosphatase Lactate Dehydrogenase Troponin T C-Reactive Protein Total Protein Albumin Prealbumin Triglycerides Cholesterol LDL Cholesterol Direct HDL Cholesterol 25-OH Vitamin D Total PTH Intact Urine pH Urine WBC (Auto) Urine Creatinine Urine Total Protein Fluid Total Protein Vancomycin Trough Rheumatoid Factor Complement C4 Miscellaneous Test Crossmatch 11/09/16 11/10/16 11/10/16 18:55 07:00 11:51 WBC RBC Hgb Hct MCV MCH MCHC RDW Plt Count Lymph % (Auto) Harper % (Auto) Lymph # Harper # Baso # Seg Neutrophils % Seg Neuts % (Manual) Lymphocytes % (Manual) Monocytes % (Manual) Eosinophils % (Manual) Basophils % (Manual) Nucleated RBC % Seg Neutrophils # Seg Neutrophils # Man Lymphocytes # (Manual) Monocytes # (Manual) Eosinophils # (Manual) Basophils # (Manual) PT INR Fibrinogen dRVVT Confirm Interp Factor V Activity POC ABG pH POC ABG pCO2 POC ABG pO2 ABG pO2 ABG HCO3 ABG Base Excess ABG Hemoglobin Oxyhemoglobin Sodium Potassium 3.0 L D Chloride 97.4 L Carbon Dioxide BUN 28 H Creatinine 1.3 H Glucose POC Glucose 68 L 120 H Lactic Acid Calcium 7.8 L Ionized Calcium Phosphorus Magnesium Direct Bilirubin AST ALT Alkaline Phosphatase Lactate Dehydrogenase Troponin T C-Reactive Protein Total Protein Albumin Prealbumin Triglycerides Cholesterol LDL Cholesterol Direct HDL Cholesterol 25-OH Vitamin D Total PTH Intact Urine pH Urine WBC (Auto) Urine Creatinine Urine Total Protein Fluid Total Protein Vancomycin Trough Rheumatoid Factor Complement C4 Miscellaneous Test Crossmatch 11/10/16 11/11/16 11/11/16 14:20 06:59 06:59 WBC RBC 2.81 L Hgb 8.1 L Hct 24.4 L MCV MCH MCHC RDW 16.4 H Plt Count Lymph % (Auto) Harper % (Auto) 10.8 H Lymph # Harper # 1.0 H Baso # Seg Neutrophils % Seg Neuts % (Manual) Lymphocytes % (Manual) Monocytes % (Manual) Eosinophils % (Manual) Basophils % (Manual) Nucleated RBC % Seg Neutrophils # Seg Neutrophils # Man Lymphocytes # (Manual) Monocytes # (Manual) Eosinophils # (Manual) Basophils # (Manual) PT INR Fibrinogen dRVVT Confirm Interp Factor V Activity POC ABG pH POC ABG pCO2 POC ABG pO2 ABG pO2 ABG HCO3 ABG Base Excess ABG Hemoglobin Oxyhemoglobin Sodium Potassium Chloride Carbon Dioxide BUN Creatinine Glucose POC Glucose Lactic Acid Calcium Ionized Calcium Phosphorus Magnesium Direct Bilirubin AST ALT Alkaline Phosphatase Lactate Dehydrogenase 196 H Troponin T C-Reactive Protein Total Protein 6.1 L Albumin Prealbumin Triglycerides Cholesterol LDL Cholesterol Direct HDL Cholesterol 25-OH Vitamin D Total PTH Intact Urine pH Urine WBC (Auto) Urine Creatinine Urine Total Protein Fluid Total Protein < 3.0 L Vancomycin Trough Rheumatoid Factor Complement C4 Miscellaneous Test Crossmatch 11/11/16 11/11/16 11/12/16 06:59 09:50 04:00 WBC RBC Hgb Hct MCV MCH MCHC RDW Plt Count Lymph % (Auto) Harper % (Auto) Lymph # Harper # Baso # Seg Neutrophils % Seg Neuts % (Manual) Lymphocytes % (Manual) Monocytes % (Manual) Eosinophils % (Manual) Basophils % (Manual) Nucleated RBC % Seg Neutrophils # Seg Neutrophils # Man Lymphocytes # (Manual) Monocytes # (Manual) Eosinophils # (Manual) Basophils # (Manual) PT INR 1.18 H Fibrinogen dRVVT Confirm Interp Factor V Activity POC ABG pH POC ABG pCO2 POC ABG pO2 ABG pO2 ABG HCO3 ABG Base Excess ABG Hemoglobin Oxyhemoglobin Sodium 136 L 133 L Potassium Chloride 96.1 L 94.8 L Carbon Dioxide 21 L BUN 37 H 42 H Creatinine 1.8 H 2.0 H Glucose POC Glucose Lactic Acid Calcium Ionized Calcium Phosphorus Magnesium Direct Bilirubin AST ALT Alkaline Phosphatase Lactate Dehydrogenase Troponin T C-Reactive Protein Total Protein Albumin Prealbumin Triglycerides Cholesterol LDL Cholesterol Direct HDL Cholesterol 25-OH Vitamin D Total PTH Intact Urine pH Urine WBC (Auto) Urine Creatinine Urine Total Protein Fluid Total Protein Vancomycin Trough Rheumatoid Factor Complement C4 Miscellaneous Test Crossmatch 11/12/16 11/12/16 11/13/16 04:00 23:55 05:53 WBC RBC Hgb 8.9 L Hct 27.2 L MCV MCH MCHC RDW Plt Count Lymph % (Auto) Harper % (Auto) Lymph # Harper # Baso # Seg Neutrophils % Seg Neuts % (Manual) Lymphocytes % (Manual) Monocytes % (Manual) Eosinophils % (Manual) Basophils % (Manual) Nucleated RBC % Seg Neutrophils # Seg Neutrophils # Man Lymphocytes # (Manual) Monocytes # (Manual) Eosinophils # (Manual) Basophils # (Manual) PT INR Fibrinogen dRVVT Confirm Interp Factor V Activity POC ABG pH POC ABG pCO2 POC ABG pO2 ABG pO2 ABG HCO3 ABG Base Excess ABG Hemoglobin Oxyhemoglobin Sodium Potassium Chloride Carbon Dioxide BUN Creatinine Glucose POC Glucose 132 H 120 H Lactic Acid Calcium Ionized Calcium Phosphorus Magnesium Direct Bilirubin AST ALT Alkaline Phosphatase Lactate Dehydrogenase Troponin T C-Reactive Protein Total Protein Albumin Prealbumin Triglycerides Cholesterol LDL Cholesterol Direct HDL Cholesterol 25-OH Vitamin D Total PTH Intact Urine pH Urine WBC (Auto) Urine Creatinine Urine Total Protein Fluid Total Protein Vancomycin Trough Rheumatoid Factor Complement C4 Miscellaneous Test Crossmatch 11/13/16 11/13/16 11/13/16 11:43 17:09 23:41 WBC RBC Hgb Hct MCV MCH MCHC RDW Plt Count Lymph % (Auto) Harper % (Auto) Lymph # Harper # Baso # Seg Neutrophils % Seg Neuts % (Manual) Lymphocytes % (Manual) Monocytes % (Manual) Eosinophils % (Manual) Basophils % (Manual) Nucleated RBC % Seg Neutrophils # Seg Neutrophils # Man Lymphocytes # (Manual) Monocytes # (Manual) Eosinophils # (Manual) Basophils # (Manual) PT INR Fibrinogen dRVVT Confirm Interp Factor V Activity POC ABG pH POC ABG pCO2 POC ABG pO2 ABG pO2 ABG HCO3 ABG Base Excess ABG Hemoglobin Oxyhemoglobin Sodium Potassium Chloride Carbon Dioxide BUN Creatinine Glucose POC Glucose 114 H 113 H 108 H Lactic Acid Calcium Ionized Calcium Phosphorus Magnesium Direct Bilirubin AST ALT Alkaline Phosphatase Lactate Dehydrogenase Troponin T C-Reactive Protein Total Protein Albumin Prealbumin Triglycerides Cholesterol LDL Cholesterol Direct HDL Cholesterol 25-OH Vitamin D Total PTH Intact Urine pH Urine WBC (Auto) Urine Creatinine Urine Total Protein Fluid Total Protein Vancomycin Trough Rheumatoid Factor Complement C4 Miscellaneous Test Crossmatch 11/13/16 11/15/16 11/15/16 Unknown 00:37 03:30 WBC 11.2 H RBC 2.72 L Hgb 7.6 L Hct 23.4 L MCV MCH MCHC RDW 16.5 H Plt Count Lymph % (Auto) Harper % (Auto) Lymph # Harper # Baso # Seg Neutrophils % Seg Neuts % (Manual) Lymphocytes % (Manual) Monocytes % (Manual) Eosinophils % (Manual) Basophils % (Manual) Nucleated RBC % Seg Neutrophils # Seg Neutrophils # Man Lymphocytes # (Manual) Monocytes # (Manual) Eosinophils # (Manual) Basophils # (Manual) PT INR Fibrinogen dRVVT Confirm Interp Factor V Activity POC ABG pH POC ABG pCO2 POC ABG pO2 ABG pO2 ABG HCO3 ABG Base Excess ABG Hemoglobin Oxyhemoglobin Sodium 135 L Potassium Chloride 95.2 L Carbon Dioxide BUN 52 H Creatinine 2.2 H Glucose POC Glucose 108 H Lactic Acid Calcium Ionized Calcium Phosphorus Magnesium Direct Bilirubin AST ALT Alkaline Phosphatase Lactate Dehydrogenase Troponin T C-Reactive Protein Total Protein Albumin Prealbumin Triglycerides Cholesterol LDL Cholesterol Direct HDL Cholesterol 25-OH Vitamin D Total PTH Intact Urine pH Urine WBC (Auto) Urine Creatinine Urine Total Protein Fluid Total Protein Vancomycin Trough Rheumatoid Factor Complement C4 Miscellaneous Test Crossmatch 11/15/16 11/15/16 11/15/16 03:30 05:04 11:50 WBC RBC Hgb Hct MCV MCH MCHC RDW Plt Count Lymph % (Auto) Harper % (Auto) Lymph # Harper # Baso # Seg Neutrophils % Seg Neuts % (Manual) Lymphocytes % (Manual) Monocytes % (Manual) Eosinophils % (Manual) Basophils % (Manual) Nucleated RBC % Seg Neutrophils # Seg Neutrophils # Man Lymphocytes # (Manual) Monocytes # (Manual) Eosinophils # (Manual) Basophils # (Manual) PT INR Fibrinogen dRVVT Confirm Interp Factor V Activity POC ABG pH POC ABG pCO2 POC ABG pO2 ABG pO2 ABG HCO3 ABG Base Excess ABG Hemoglobin Oxyhemoglobin Sodium Potassium 3.4 L Chloride Carbon Dioxide BUN 25 H Creatinine 1.5 H Glucose 103 H POC Glucose 121 H 144 H Lactic Acid Calcium Ionized Calcium Phosphorus Magnesium Direct Bilirubin AST ALT Alkaline Phosphatase Lactate Dehydrogenase Troponin T C-Reactive Protein Total Protein Albumin Prealbumin Triglycerides Cholesterol LDL Cholesterol Direct HDL Cholesterol 25-OH Vitamin D Total PTH Intact Urine pH Urine WBC (Auto) Urine Creatinine Urine Total Protein Fluid Total Protein Vancomycin Trough Rheumatoid Factor Complement C4 Miscellaneous Test Crossmatch 11/15/16 11/15/16 11/16/16 21:28 23:20 11:44 WBC RBC Hgb Hct MCV MCH MCHC RDW Plt Count Lymph % (Auto) Harper % (Auto) Lymph # Harper # Baso # Seg Neutrophils % Seg Neuts % (Manual) Lymphocytes % (Manual) Monocytes % (Manual) Eosinophils % (Manual) Basophils % (Manual) Nucleated RBC % Seg Neutrophils # Seg Neutrophils # Man Lymphocytes # (Manual) Monocytes # (Manual) Eosinophils # (Manual) Basophils # (Manual) PT INR Fibrinogen dRVVT Confirm Interp Factor V Activity POC ABG pH 7.462 H POC ABG pCO2 POC ABG pO2 71 L ABG pO2 ABG HCO3 ABG Base Excess ABG Hemoglobin Oxyhemoglobin Sodium Potassium Chloride Carbon Dioxide BUN Creatinine Glucose POC Glucose 116 H 133 H Lactic Acid Calcium Ionized Calcium Phosphorus Magnesium Direct Bilirubin AST ALT Alkaline Phosphatase Lactate Dehydrogenase Troponin T C-Reactive Protein Total Protein Albumin Prealbumin Triglycerides Cholesterol LDL Cholesterol Direct HDL Cholesterol 25-OH Vitamin D Total PTH Intact Urine pH Urine WBC (Auto) Urine Creatinine Urine Total Protein Fluid Total Protein Vancomycin Trough Rheumatoid Factor Complement C4 Miscellaneous Test Crossmatch 11/16/16 11/16/16 11/16/16 12:20 17:05 23:35 WBC 11.7 H RBC 2.73 L Hgb 7.6 L Hct 23.7 L MCV MCH MCHC RDW 16.6 H Plt Count Lymph % (Auto) Harper % (Auto) Lymph # Harper # Baso # Seg Neutrophils % Seg Neuts % (Manual) Lymphocytes % (Manual) Monocytes % (Manual) Eosinophils % (Manual) Basophils % (Manual) Nucleated RBC % Seg Neutrophils # Seg Neutrophils # Man Lymphocytes # (Manual) Monocytes # (Manual) Eosinophils # (Manual) Basophils # (Manual) PT INR Fibrinogen dRVVT Confirm Interp Factor V Activity POC ABG pH POC ABG pCO2 POC ABG pO2 ABG pO2 ABG HCO3 ABG Base Excess ABG Hemoglobin Oxyhemoglobin Sodium Potassium Chloride Carbon Dioxide BUN Creatinine Glucose POC Glucose 154 H 125 H Lactic Acid Calcium Ionized Calcium Phosphorus Magnesium Direct Bilirubin AST ALT Alkaline Phosphatase Lactate Dehydrogenase Troponin T C-Reactive Protein Total Protein Albumin Prealbumin Triglycerides Cholesterol LDL Cholesterol Direct HDL Cholesterol 25-OH Vitamin D Total PTH Intact Urine pH Urine WBC (Auto) Urine Creatinine Urine Total Protein Fluid Total Protein Vancomycin Trough Rheumatoid Factor Complement C4 Miscellaneous Test Crossmatch 11/17/16 11/17/16 11/17/16 03:20 03:20 03:20 WBC RBC 2.55 L Hgb 7.3 L Hct 21.9 L MCV MCH MCHC RDW 16.6 H Plt Count Lymph % (Auto) Harper % (Auto) 11.5 H Lymph # Harper # 1.1 H Baso # Seg Neutrophils % Seg Neuts % (Manual) Lymphocytes % (Manual) Monocytes % (Manual) Eosinophils % (Manual) Basophils % (Manual) Nucleated RBC % Seg Neutrophils # Seg Neutrophils # Man Lymphocytes # (Manual) Monocytes # (Manual) Eosinophils # (Manual) Basophils # (Manual) PT 16.8 H INR 1.37 H Fibrinogen dRVVT Confirm Interp Factor V Activity POC ABG pH POC ABG pCO2 POC ABG pO2 ABG pO2 ABG HCO3 ABG Base Excess ABG Hemoglobin Oxyhemoglobin Sodium Potassium 3.5 L Chloride Carbon Dioxide BUN 21 H Creatinine Glucose POC Glucose Lactic Acid Calcium 7.9 L Ionized Calcium Phosphorus Magnesium Direct Bilirubin AST ALT Alkaline Phosphatase Lactate Dehydrogenase Troponin T C-Reactive Protein Total Protein Albumin Prealbumin Triglycerides Cholesterol LDL Cholesterol Direct HDL Cholesterol 25-OH Vitamin D Total PTH Intact Urine pH Urine WBC (Auto) Urine Creatinine Urine Total Protein Fluid Total Protein Vancomycin Trough Rheumatoid Factor Complement C4 Miscellaneous Test Crossmatch 11/17/16 11/17/16 11/17/16 06:34 11:21 21:22 WBC RBC Hgb Hct MCV MCH MCHC RDW Plt Count Lymph % (Auto) Harper % (Auto) Lymph # Harper # Baso # Seg Neutrophils % Seg Neuts % (Manual) Lymphocytes % (Manual) Monocytes % (Manual) Eosinophils % (Manual) Basophils % (Manual) Nucleated RBC % Seg Neutrophils # Seg Neutrophils # Man Lymphocytes # (Manual) Monocytes # (Manual) Eosinophils # (Manual) Basophils # (Manual) PT INR Fibrinogen dRVVT Confirm Interp Factor V Activity POC ABG pH 7.467 H POC ABG pCO2 POC ABG pO2 73 L ABG pO2 ABG HCO3 ABG Base Excess ABG Hemoglobin Oxyhemoglobin Sodium Potassium Chloride Carbon Dioxide BUN Creatinine Glucose POC Glucose 121 H 119 H Lactic Acid Calcium Ionized Calcium Phosphorus Magnesium Direct Bilirubin AST ALT Alkaline Phosphatase Lactate Dehydrogenase Troponin T C-Reactive Protein Total Protein Albumin Prealbumin Triglycerides Cholesterol LDL Cholesterol Direct HDL Cholesterol 25-OH Vitamin D Total PTH Intact Urine pH Urine WBC (Auto) Urine Creatinine Urine Total Protein Fluid Total Protein Vancomycin Trough Rheumatoid Factor Complement C4 Miscellaneous Test Crossmatch 11/18/16 11/18/16 11/19/16 12:16 17:19 00:00 WBC RBC Hgb Hct MCV MCH MCHC RDW Plt Count Lymph % (Auto) Harper % (Auto) Lymph # Harper # Baso # Seg Neutrophils % Seg Neuts % (Manual) Lymphocytes % (Manual) Monocytes % (Manual) Eosinophils % (Manual) Basophils % (Manual) Nucleated RBC % Seg Neutrophils # Seg Neutrophils # Man Lymphocytes # (Manual) Monocytes # (Manual) Eosinophils # (Manual) Basophils # (Manual) PT INR Fibrinogen dRVVT Confirm Interp Factor V Activity POC ABG pH POC ABG pCO2 POC ABG pO2 ABG pO2 ABG HCO3 ABG Base Excess ABG Hemoglobin Oxyhemoglobin Sodium Potassium Chloride Carbon Dioxide BUN Creatinine Glucose POC Glucose 124 H 162 H 139 H Lactic Acid Calcium Ionized Calcium Phosphorus Magnesium Direct Bilirubin AST ALT Alkaline Phosphatase Lactate Dehydrogenase Troponin T C-Reactive Protein Total Protein Albumin Prealbumin Triglycerides Cholesterol LDL Cholesterol Direct HDL Cholesterol 25-OH Vitamin D Total PTH Intact Urine pH Urine WBC (Auto) Urine Creatinine Urine Total Protein Fluid Total Protein Vancomycin Trough Rheumatoid Factor Complement C4 Miscellaneous Test Crossmatch 11/19/16 11/19/16 11/20/16 05:00 12:43 00:40 WBC RBC Hgb Hct MCV MCH MCHC RDW Plt Count Lymph % (Auto) Harper % (Auto) Lymph # Harper # Baso # Seg Neutrophils % Seg Neuts % (Manual) Lymphocytes % (Manual) Monocytes % (Manual) Eosinophils % (Manual) Basophils % (Manual) Nucleated RBC % Seg Neutrophils # Seg Neutrophils # Man Lymphocytes # (Manual) Monocytes # (Manual) Eosinophils # (Manual) Basophils # (Manual) PT INR Fibrinogen dRVVT Confirm Interp Factor V Activity POC ABG pH POC ABG pCO2 POC ABG pO2 ABG pO2 ABG HCO3 ABG Base Excess ABG Hemoglobin Oxyhemoglobin Sodium Potassium Chloride Carbon Dioxide BUN Creatinine Glucose POC Glucose 110 H 125 H 136 H Lactic Acid Calcium Ionized Calcium Phosphorus Magnesium Direct Bilirubin AST ALT Alkaline Phosphatase Lactate Dehydrogenase Troponin T C-Reactive Protein Total Protein Albumin Prealbumin Triglycerides Cholesterol LDL Cholesterol Direct HDL Cholesterol 25-OH Vitamin D Total PTH Intact Urine pH Urine WBC (Auto) Urine Creatinine Urine Total Protein Fluid Total Protein Vancomycin Trough Rheumatoid Factor Complement C4 Miscellaneous Test Crossmatch 11/20/16 11/20/16 11/20/16 05:00 05:00 05:51 WBC 13.1 H RBC 2.74 L Hgb 7.7 L Hct 23.6 L MCV MCH MCHC RDW 16.9 H Plt Count Lymph % (Auto) Harper % (Auto) 10.8 H Lymph # Harper # 1.4 H Baso # Seg Neutrophils % Seg Neuts % (Manual) Lymphocytes % (Manual) Monocytes % (Manual) Eosinophils % (Manual) Basophils % (Manual) Nucleated RBC % Seg Neutrophils # 7.9 H Seg Neutrophils # Man Lymphocytes # (Manual) Monocytes # (Manual) Eosinophils # (Manual) Basophils # (Manual) PT INR Fibrinogen dRVVT Confirm Interp Factor V Activity POC ABG pH POC ABG pCO2 POC ABG pO2 ABG pO2 ABG HCO3 ABG Base Excess ABG Hemoglobin Oxyhemoglobin Sodium Potassium Chloride Carbon Dioxide BUN 31 H Creatinine 1.8 H Glucose 129 H POC Glucose 133 H Lactic Acid Calcium Ionized Calcium Phosphorus Magnesium Direct Bilirubin AST ALT Alkaline Phosphatase Lactate Dehydrogenase Troponin T C-Reactive Protein Total Protein Albumin Prealbumin Triglycerides Cholesterol LDL Cholesterol Direct HDL Cholesterol 25-OH Vitamin D Total PTH Intact Urine pH Urine WBC (Auto) Urine Creatinine Urine Total Protein Fluid Total Protein Vancomycin Trough Rheumatoid Factor Complement C4 Miscellaneous Test Crossmatch 11/20/16 11/20/16 11/21/16 12:40 18:10 01:20 WBC RBC Hgb Hct MCV MCH MCHC RDW Plt Count Lymph % (Auto) Harper % (Auto) Lymph # Harper # Baso # Seg Neutrophils % Seg Neuts % (Manual) Lymphocytes % (Manual) Monocytes % (Manual) Eosinophils % (Manual) Basophils % (Manual) Nucleated RBC % Seg Neutrophils # Seg Neutrophils # Man Lymphocytes # (Manual) Monocytes # (Manual) Eosinophils # (Manual) Basophils # (Manual) PT INR Fibrinogen dRVVT Confirm Interp Factor V Activity POC ABG pH POC ABG pCO2 POC ABG pO2 ABG pO2 ABG HCO3 ABG Base Excess ABG Hemoglobin Oxyhemoglobin Sodium Potassium Chloride Carbon Dioxide BUN Creatinine Glucose POC Glucose 134 H 138 H 136 H Lactic Acid Calcium Ionized Calcium Phosphorus Magnesium Direct Bilirubin AST ALT Alkaline Phosphatase Lactate Dehydrogenase Troponin T C-Reactive Protein Total Protein Albumin Prealbumin Triglycerides Cholesterol LDL Cholesterol Direct HDL Cholesterol 25-OH Vitamin D Total PTH Intact Urine pH Urine WBC (Auto) Urine Creatinine Urine Total Protein Fluid Total Protein Vancomycin Trough Rheumatoid Factor Complement C4 Miscellaneous Test Crossmatch 11/21/16 11/21/16 11/21/16 07:04 07:45 07:45 WBC 22.0 H RBC 2.91 L Hgb 8.2 L Hct 25.4 L MCV MCH MCHC RDW 17.1 H Plt Count Lymph % (Auto) Harper % (Auto) Lymph # Harper # Baso # Seg Neutrophils % Seg Neuts % (Manual) Lymphocytes % (Manual) 8.0 L Monocytes % (Manual) Eosinophils % (Manual) Basophils % (Manual) Nucleated RBC % Seg Neutrophils # Seg Neutrophils # Man 14.7 H Lymphocytes # (Manual) Monocytes # (Manual) 1.1 H Eosinophils # (Manual) Basophils # (Manual) PT INR Fibrinogen dRVVT Confirm Interp Factor V Activity POC ABG pH POC ABG pCO2 POC ABG pO2 ABG pO2 ABG HCO3 ABG Base Excess ABG Hemoglobin Oxyhemoglobin Sodium Potassium Chloride Carbon Dioxide BUN 42 H Creatinine 2.0 H Glucose POC Glucose 108 H Lactic Acid Calcium Ionized Calcium Phosphorus Magnesium Direct Bilirubin AST ALT Alkaline Phosphatase Lactate Dehydrogenase Troponin T C-Reactive Protein Total Protein Albumin Prealbumin Triglycerides Cholesterol LDL Cholesterol Direct HDL Cholesterol 25-OH Vitamin D Total PTH Intact Urine pH Urine WBC (Auto) Urine Creatinine Urine Total Protein Fluid Total Protein Vancomycin Trough Rheumatoid Factor Complement C4 Miscellaneous Test Crossmatch 11/21/16 11/21/16 11/21/16 08:38 10:09 11:20 WBC RBC Hgb Hct MCV MCH MCHC RDW Plt Count Lymph % (Auto) Harper % (Auto) Lymph # Harper # Baso # Seg Neutrophils % Seg Neuts % (Manual) Lymphocytes % (Manual) Monocytes % (Manual) Eosinophils % (Manual) Basophils % (Manual) Nucleated RBC % Seg Neutrophils # Seg Neutrophils # Man Lymphocytes # (Manual) Monocytes # (Manual) Eosinophils # (Manual) Basophils # (Manual) PT INR Fibrinogen dRVVT Confirm Interp Factor V Activity POC ABG pH 7.346 L POC ABG pCO2 34.4 L POC ABG pO2 314 H ABG pO2 ABG HCO3 ABG Base Excess ABG Hemoglobin Oxyhemoglobin Sodium Potassium Chloride Carbon Dioxide BUN Creatinine Glucose POC Glucose 195 H 153 H Lactic Acid Calcium Ionized Calcium Phosphorus Magnesium Direct Bilirubin AST ALT Alkaline Phosphatase Lactate Dehydrogenase Troponin T C-Reactive Protein Total Protein Albumin Prealbumin Triglycerides Cholesterol LDL Cholesterol Direct HDL Cholesterol 25-OH Vitamin D Total PTH Intact Urine pH Urine WBC (Auto) Urine Creatinine Urine Total Protein Fluid Total Protein Vancomycin Trough Rheumatoid Factor Complement C4 Miscellaneous Test Crossmatch 11/21/16 11/22/16 11/22/16 23:37 04:48 05:00 WBC 29.7 H RBC 2.73 L Hgb 7.5 L Hct 24.2 L MCV MCH 27 L MCHC RDW 17.4 H Plt Count Lymph % (Auto) Harper % (Auto) Lymph # Harper # Baso # Seg Neutrophils % Seg Neuts % (Manual) Lymphocytes % (Manual) 7.0 L Monocytes % (Manual) Eosinophils % (Manual) Basophils % (Manual) Nucleated RBC % Seg Neutrophils # Seg Neutrophils # Man 15.4 H Lymphocytes # (Manual) Monocytes # (Manual) Eosinophils # (Manual) Basophils # (Manual) PT INR Fibrinogen dRVVT Confirm Interp Factor V Activity POC ABG pH POC ABG pCO2 24.6 L POC ABG pO2 189 H ABG pO2 ABG HCO3 ABG Base Excess ABG Hemoglobin Oxyhemoglobin Sodium Potassium Chloride Carbon Dioxide BUN Creatinine Glucose POC Glucose 65 L Lactic Acid Calcium Ionized Calcium Phosphorus Magnesium Direct Bilirubin AST ALT Alkaline Phosphatase Lactate Dehydrogenase Troponin T C-Reactive Protein Total Protein Albumin Prealbumin Triglycerides Cholesterol LDL Cholesterol Direct HDL Cholesterol 25-OH Vitamin D Total PTH Intact Urine pH Urine WBC (Auto) Urine Creatinine Urine Total Protein Fluid Total Protein Vancomycin Trough Rheumatoid Factor Complement C4 Miscellaneous Test Crossmatch 11/22/16 11/23/16 11/23/16 05:00 03:44 04:06 WBC RBC 2.52 L Hgb 7.2 L Hct 21.5 L MCV MCH MCHC RDW 17.1 H Plt Count Lymph % (Auto) Harper % (Auto) 12.4 H Lymph # Harper # 1.4 H Baso # Seg Neutrophils % Seg Neuts % (Manual) Lymphocytes % (Manual) Monocytes % (Manual) Eosinophils % (Manual) Basophils % (Manual) Nucleated RBC % Seg Neutrophils # Seg Neutrophils # Man Lymphocytes # (Manual) Monocytes # (Manual) Eosinophils # (Manual) Basophils # (Manual) PT INR Fibrinogen dRVVT Confirm Interp Factor V Activity POC ABG pH 7.493 H POC ABG pCO2 29.5 L POC ABG pO2 49 L ABG pO2 ABG HCO3 ABG Base Excess ABG Hemoglobin Oxyhemoglobin Sodium 134 L Potassium Chloride 95.9 L Carbon Dioxide 14 L D BUN 51 H Creatinine 2.6 H Glucose POC Glucose Lactic Acid Calcium Ionized Calcium Phosphorus Magnesium Direct Bilirubin AST ALT Alkaline Phosphatase Lactate Dehydrogenase Troponin T C-Reactive Protein Total Protein Albumin Prealbumin Triglycerides Cholesterol LDL Cholesterol Direct HDL Cholesterol 25-OH Vitamin D Total PTH Intact Urine pH Urine WBC (Auto) Urine Creatinine Urine Total Protein Fluid Total Protein Vancomycin Trough Rheumatoid Factor Complement C4 Miscellaneous Test Crossmatch 11/23/16 11/23/16 11/24/16 04:06 11:29 06:39 WBC RBC Hgb Hct MCV MCH MCHC RDW Plt Count Lymph % (Auto) Harper % (Auto) Lymph # Harper # Baso # Seg Neutrophils % Seg Neuts % (Manual) Lymphocytes % (Manual) Monocytes % (Manual) Eosinophils % (Manual) Basophils % (Manual) Nucleated RBC % Seg Neutrophils # Seg Neutrophils # Man Lymphocytes # (Manual) Monocytes # (Manual) Eosinophils # (Manual) Basophils # (Manual) PT INR Fibrinogen dRVVT Confirm Interp Factor V Activity POC ABG pH POC ABG pCO2 POC ABG pO2 ABG pO2 ABG HCO3 ABG Base Excess ABG Hemoglobin Oxyhemoglobin Sodium 136 L Potassium Chloride 95.2 L Carbon Dioxide BUN 60 H Creatinine 2.9 H Glucose POC Glucose 69 L 305 H Lactic Acid Calcium Ionized Calcium Phosphorus Magnesium 1.60 L Direct Bilirubin AST ALT Alkaline Phosphatase Lactate Dehydrogenase Troponin T C-Reactive Protein Total Protein Albumin Prealbumin Triglycerides Cholesterol LDL Cholesterol Direct HDL Cholesterol 25-OH Vitamin D Total PTH Intact Urine pH Urine WBC (Auto) Urine Creatinine Urine Total Protein Fluid Total Protein Vancomycin Trough Rheumatoid Factor Complement C4 Miscellaneous Test Crossmatch 11/24/16 11/24/16 11/24/16 06:43 08:08 08:08 WBC 11.2 H RBC 2.47 L Hgb 6.8 L Hct 20.6 L MCV MCH MCHC RDW 17.0 H Plt Count Lymph % (Auto) Harper % (Auto) 10.3 H Lymph # Harper # 1.2 H Baso # Seg Neutrophils % Seg Neuts % (Manual) Lymphocytes % (Manual) Monocytes % (Manual) Eosinophils % (Manual) Basophils % (Manual) Nucleated RBC % Seg Neutrophils # Seg Neutrophils # Man Lymphocytes # (Manual) Monocytes # (Manual) Eosinophils # (Manual) Basophils # (Manual) PT INR Fibrinogen dRVVT Confirm Interp Factor V Activity POC ABG pH POC ABG pCO2 POC ABG pO2 ABG pO2 ABG HCO3 ABG Base Excess ABG Hemoglobin Oxyhemoglobin Sodium 135 L Potassium Chloride 96.3 L Carbon Dioxide BUN 61 H Creatinine 3.1 H Glucose POC Glucose 62 L Lactic Acid Calcium 8.2 L Ionized Calcium Phosphorus Magnesium Direct Bilirubin AST ALT Alkaline Phosphatase Lactate Dehydrogenase Troponin T C-Reactive Protein Total Protein Albumin Prealbumin Triglycerides Cholesterol LDL Cholesterol Direct HDL Cholesterol 25-OH Vitamin D Total PTH Intact Urine pH Urine WBC (Auto) Urine Creatinine Urine Total Protein Fluid Total Protein Vancomycin Trough Rheumatoid Factor Complement C4 Miscellaneous Test Crossmatch 11/24/16 11/24/16 11/24/16 08:34 11:20 12:41 WBC RBC Hgb Hct MCV MCH MCHC RDW Plt Count Lymph % (Auto) Harper % (Auto) Lymph # Harper # Baso # Seg Neutrophils % Seg Neuts % (Manual) Lymphocytes % (Manual) Monocytes % (Manual) Eosinophils % (Manual) Basophils % (Manual) Nucleated RBC % Seg Neutrophils # Seg Neutrophils # Man Lymphocytes # (Manual) Monocytes # (Manual) Eosinophils # (Manual) Basophils # (Manual) PT INR Fibrinogen dRVVT Confirm Interp Factor V Activity POC ABG pH POC ABG pCO2 POC ABG pO2 ABG pO2 ABG HCO3 ABG Base Excess ABG Hemoglobin Oxyhemoglobin Sodium Potassium Chloride Carbon Dioxide BUN Creatinine Glucose POC Glucose 108 H Lactic Acid Calcium Ionized Calcium Phosphorus Magnesium 1.60 L Direct Bilirubin AST ALT Alkaline Phosphatase Lactate Dehydrogenase Troponin T C-Reactive Protein Total Protein Albumin Prealbumin Triglycerides Cholesterol LDL Cholesterol Direct HDL Cholesterol 25-OH Vitamin D Total PTH Intact Urine pH Urine WBC (Auto) Urine Creatinine Urine Total Protein Fluid Total Protein Vancomycin Trough Rheumatoid Factor Complement C4 Miscellaneous Test Crossmatch See Detail 11/25/16 11/25/16 11/25/16 00:03 04:42 04:42 WBC RBC 3.03 L Hgb 8.6 L Hct 25.3 L MCV MCH MCHC RDW 16.2 H Plt Count Lymph % (Auto) Harper % (Auto) 8.1 H Lymph # Harper # Baso # Seg Neutrophils % 71.3 H Seg Neuts % (Manual) Lymphocytes % (Manual) Monocytes % (Manual) Eosinophils % (Manual) Basophils % (Manual) Nucleated RBC % Seg Neutrophils # Seg Neutrophils # Man Lymphocytes # (Manual) Monocytes # (Manual) Eosinophils # (Manual) Basophils # (Manual) PT INR Fibrinogen dRVVT Confirm Interp Factor V Activity POC ABG pH POC ABG pCO2 POC ABG pO2 ABG pO2 ABG HCO3 ABG Base Excess ABG Hemoglobin Oxyhemoglobin Sodium Potassium Chloride Carbon Dioxide BUN 61 H Creatinine 3.0 H Glucose 102 H POC Glucose 113 H Lactic Acid Calcium 8.2 L Ionized Calcium Phosphorus Magnesium Direct Bilirubin AST ALT Alkaline Phosphatase 142 H Lactate Dehydrogenase Troponin T C-Reactive Protein Total Protein 5.7 L Albumin 1.5 L Prealbumin Triglycerides Cholesterol LDL Cholesterol Direct HDL Cholesterol 25-OH Vitamin D Total PTH Intact Urine pH Urine WBC (Auto) Urine Creatinine Urine Total Protein Fluid Total Protein Vancomycin Trough Rheumatoid Factor Complement C4 Miscellaneous Test Crossmatch 11/25/16 11/25/16 11/25/16 05:12 11:31 14:12 WBC RBC Hgb Hct MCV MCH MCHC RDW Plt Count Lymph % (Auto) Harper % (Auto) Lymph # Harper # Baso # Seg Neutrophils % Seg Neuts % (Manual) Lymphocytes % (Manual) Monocytes % (Manual) Eosinophils % (Manual) Basophils % (Manual) Nucleated RBC % Seg Neutrophils # Seg Neutrophils # Man Lymphocytes # (Manual) Monocytes # (Manual) Eosinophils # (Manual) Basophils # (Manual) PT INR Fibrinogen dRVVT Confirm Interp Factor V Activity POC ABG pH 7.487 H POC ABG pCO2 POC ABG pO2 153 H ABG pO2 ABG HCO3 ABG Base Excess ABG Hemoglobin Oxyhemoglobin Sodium Potassium Chloride Carbon Dioxide BUN Creatinine Glucose POC Glucose 131 H 140 H Lactic Acid Calcium Ionized Calcium Phosphorus Magnesium Direct Bilirubin AST ALT Alkaline Phosphatase Lactate Dehydrogenase Troponin T C-Reactive Protein Total Protein Albumin Prealbumin Triglycerides Cholesterol LDL Cholesterol Direct HDL Cholesterol 25-OH Vitamin D Total PTH Intact Urine pH Urine WBC (Auto) Urine Creatinine Urine Total Protein Fluid Total Protein Vancomycin Trough Rheumatoid Factor Complement C4 Miscellaneous Test Crossmatch 11/25/16 11/26/16 11/26/16 17:23 00:09 05:13 WBC RBC 2.94 L Hgb 8.4 L Hct 24.6 L MCV MCH MCHC RDW 16.4 H Plt Count Lymph % (Auto) Harper % (Auto) 12.3 H Lymph # Harper # 1.1 H Baso # Seg Neutrophils % Seg Neuts % (Manual) Lymphocytes % (Manual) Monocytes % (Manual) Eosinophils % (Manual) Basophils % (Manual) Nucleated RBC % Seg Neutrophils # Seg Neutrophils # Man Lymphocytes # (Manual) Monocytes # (Manual) Eosinophils # (Manual) Basophils # (Manual) PT INR Fibrinogen dRVVT Confirm Interp Factor V Activity POC ABG pH POC ABG pCO2 POC ABG pO2 ABG pO2 ABG HCO3 ABG Base Excess ABG Hemoglobin Oxyhemoglobin Sodium Potassium Chloride Carbon Dioxide BUN Creatinine Glucose POC Glucose 146 H 112 H Lactic Acid Calcium Ionized Calcium Phosphorus Magnesium Direct Bilirubin AST ALT Alkaline Phosphatase Lactate Dehydrogenase Troponin T C-Reactive Protein Total Protein Albumin Prealbumin Triglycerides Cholesterol LDL Cholesterol Direct HDL Cholesterol 25-OH Vitamin D Total PTH Intact Urine pH Urine WBC (Auto) Urine Creatinine Urine Total Protein Fluid Total Protein Vancomycin Trough Rheumatoid Factor Complement C4 Miscellaneous Test Crossmatch 11/26/16 11/26/16 11/26/16 05:13 05:28 11:53 WBC RBC Hgb Hct MCV MCH MCHC RDW Plt Count Lymph % (Auto) Harper % (Auto) Lymph # Harper # Baso # Seg Neutrophils % Seg Neuts % (Manual) Lymphocytes % (Manual) Monocytes % (Manual) Eosinophils % (Manual) Basophils % (Manual) Nucleated RBC % Seg Neutrophils # Seg Neutrophils # Man Lymphocytes # (Manual) Monocytes # (Manual) Eosinophils # (Manual) Basophils # (Manual) PT INR Fibrinogen dRVVT Confirm Interp Factor V Activity POC ABG pH POC ABG pCO2 POC ABG pO2 ABG pO2 ABG HCO3 ABG Base Excess ABG Hemoglobin Oxyhemoglobin Sodium Potassium Chloride 97.8 L Carbon Dioxide BUN 37 H Creatinine 2.0 H Glucose 109 H POC Glucose 117 H 111 H Lactic Acid Calcium 7.9 L Ionized Calcium Phosphorus 1.80 L D Magnesium Direct Bilirubin AST ALT Alkaline Phosphatase Lactate Dehydrogenase Troponin T C-Reactive Protein Total Protein Albumin Prealbumin Triglycerides Cholesterol LDL Cholesterol Direct HDL Cholesterol 25-OH Vitamin D Total PTH Intact Urine pH Urine WBC (Auto) Urine Creatinine Urine Total Protein Fluid Total Protein Vancomycin Trough Rheumatoid Factor Complement C4 Miscellaneous Test Crossmatch 11/26/16 11/27/16 11/27/16 17:14 04:50 06:02 WBC RBC Hgb Hct MCV MCH MCHC RDW Plt Count Lymph % (Auto) Harper % (Auto) Lymph # Harper # Baso # Seg Neutrophils % Seg Neuts % (Manual) Lymphocytes % (Manual) Monocytes % (Manual) Eosinophils % (Manual) Basophils % (Manual) Nucleated RBC % Seg Neutrophils # Seg Neutrophils # Man Lymphocytes # (Manual) Monocytes # (Manual) Eosinophils # (Manual) Basophils # (Manual) PT INR Fibrinogen dRVVT Confirm Interp Factor V Activity POC ABG pH POC ABG pCO2 POC ABG pO2 ABG pO2 75.2 L ABG HCO3 26.4 H ABG Base Excess ABG Hemoglobin 7.6 L Oxyhemoglobin 94.8 L Sodium Potassium Chloride Carbon Dioxide BUN 49 H Creatinine 2.3 H Glucose POC Glucose 115 H Lactic Acid Calcium Ionized Calcium Phosphorus 1.50 L Magnesium Direct Bilirubin AST ALT Alkaline Phosphatase Lactate Dehydrogenase Troponin T C-Reactive Protein Total Protein Albumin Prealbumin Triglycerides Cholesterol LDL Cholesterol Direct HDL Cholesterol 25-OH Vitamin D Total PTH Intact Urine pH Urine WBC (Auto) Urine Creatinine Urine Total Protein Fluid Total Protein Vancomycin Trough Rheumatoid Factor Complement C4 Miscellaneous Test Crossmatch 11/27/16 11/27/16 11/27/16 06:02 11:25 17:25 WBC 11.6 H RBC 2.75 L Hgb 7.6 L Hct 23.4 L MCV MCH MCHC RDW 16.5 H Plt Count Lymph % (Auto) Harper % (Auto) Lymph # Harper # Baso # Seg Neutrophils % Seg Neuts % (Manual) Lymphocytes % (Manual) Monocytes % (Manual) Eosinophils % (Manual) Basophils % (Manual) Nucleated RBC % Seg Neutrophils # Seg Neutrophils # Man Lymphocytes # (Manual) Monocytes # (Manual) Eosinophils # (Manual) Basophils # (Manual) PT INR Fibrinogen dRVVT Confirm Interp Factor V Activity POC ABG pH POC ABG pCO2 POC ABG pO2 ABG pO2 ABG HCO3 ABG Base Excess ABG Hemoglobin Oxyhemoglobin Sodium Potassium Chloride Carbon Dioxide BUN Creatinine Glucose POC Glucose 114 H 126 H Lactic Acid Calcium Ionized Calcium Phosphorus Magnesium Direct Bilirubin AST ALT Alkaline Phosphatase Lactate Dehydrogenase Troponin T C-Reactive Protein Total Protein Albumin Prealbumin Triglycerides Cholesterol LDL Cholesterol Direct HDL Cholesterol 25-OH Vitamin D Total PTH Intact Urine pH Urine WBC (Auto) Urine Creatinine Urine Total Protein Fluid Total Protein Vancomycin Trough Rheumatoid Factor Complement C4 Miscellaneous Test Crossmatch 11/28/16 11/28/16 11/28/16 04:45 05:33 05:44 WBC RBC Hgb Hct MCV MCH MCHC RDW Plt Count Lymph % (Auto) Harper % (Auto) Lymph # Harper # Baso # Seg Neutrophils % Seg Neuts % (Manual) Lymphocytes % (Manual) Monocytes % (Manual) Eosinophils % (Manual) Basophils % (Manual) Nucleated RBC % Seg Neutrophils # Seg Neutrophils # Man Lymphocytes # (Manual) Monocytes # (Manual) Eosinophils # (Manual) Basophils # (Manual) PT INR Fibrinogen dRVVT Confirm Interp Factor V Activity POC ABG pH POC ABG pCO2 POC ABG pO2 ABG pO2 99.3 H ABG HCO3 ABG Base Excess ABG Hemoglobin 8.3 L Oxyhemoglobin Sodium Potassium Chloride Carbon Dioxide BUN 63 H Creatinine 2.4 H Glucose 102 H POC Glucose 108 H Lactic Acid Calcium Ionized Calcium Phosphorus 1.80 L Magnesium Direct Bilirubin AST ALT Alkaline Phosphatase Lactate Dehydrogenase Troponin T C-Reactive Protein Total Protein Albumin Prealbumin Triglycerides Cholesterol LDL Cholesterol Direct HDL Cholesterol 25-OH Vitamin D Total PTH Intact Urine pH Urine WBC (Auto) Urine Creatinine Urine Total Protein Fluid Total Protein Vancomycin Trough Rheumatoid Factor Complement C4 Miscellaneous Test Crossmatch 11/28/16 11/28/16 11/28/16 12:31 16:09 23:46 WBC RBC Hgb Hct MCV MCH MCHC RDW Plt Count Lymph % (Auto) Harper % (Auto) Lymph # Harper # Baso # Seg Neutrophils % Seg Neuts % (Manual) Lymphocytes % (Manual) Monocytes % (Manual) Eosinophils % (Manual) Basophils % (Manual) Nucleated RBC % Seg Neutrophils # Seg Neutrophils # Man Lymphocytes # (Manual) Monocytes # (Manual) Eosinophils # (Manual) Basophils # (Manual) PT INR Fibrinogen dRVVT Confirm Interp Factor V Activity POC ABG pH POC ABG pCO2 POC ABG pO2 ABG pO2 ABG HCO3 ABG Base Excess ABG Hemoglobin Oxyhemoglobin Sodium Potassium Chloride Carbon Dioxide BUN Creatinine Glucose POC Glucose 126 H 111 H 119 H Lactic Acid Calcium Ionized Calcium Phosphorus Magnesium Direct Bilirubin AST ALT Alkaline Phosphatase Lactate Dehydrogenase Troponin T C-Reactive Protein Total Protein Albumin Prealbumin Triglycerides Cholesterol LDL Cholesterol Direct HDL Cholesterol 25-OH Vitamin D Total PTH Intact Urine pH Urine WBC (Auto) Urine Creatinine Urine Total Protein Fluid Total Protein Vancomycin Trough Rheumatoid Factor Complement C4 Miscellaneous Test Crossmatch 11/29/16 11/29/16 11/29/16 03:33 04:52 05:10 WBC RBC Hgb Hct MCV MCH MCHC RDW Plt Count Lymph % (Auto) Harper % (Auto) Lymph # Harper # Baso # Seg Neutrophils % Seg Neuts % (Manual) Lymphocytes % (Manual) Monocytes % (Manual) Eosinophils % (Manual) Basophils % (Manual) Nucleated RBC % Seg Neutrophils # Seg Neutrophils # Man Lymphocytes # (Manual) Monocytes # (Manual) Eosinophils # (Manual) Basophils # (Manual) PT INR Fibrinogen dRVVT Confirm Interp Factor V Activity POC ABG pH POC ABG pCO2 POC ABG pO2 ABG pO2 ABG HCO3 ABG Base Excess ABG Hemoglobin 7.0 L Oxyhemoglobin 94.9 L Sodium Potassium Chloride Carbon Dioxide BUN 73 H Creatinine 2.7 H Glucose POC Glucose 108 H Lactic Acid Calcium Ionized Calcium Phosphorus Magnesium Direct Bilirubin AST ALT Alkaline Phosphatase Lactate Dehydrogenase Troponin T C-Reactive Protein Total Protein Albumin Prealbumin Triglycerides Cholesterol LDL Cholesterol Direct HDL Cholesterol 25-OH Vitamin D Total PTH Intact Urine pH Urine WBC (Auto) Urine Creatinine Urine Total Protein Fluid Total Protein Vancomycin Trough Rheumatoid Factor Complement C4 Miscellaneous Test Crossmatch 11/29/16 11/29/16 11/29/16 12:16 18:05 23:46 WBC RBC Hgb Hct MCV MCH MCHC RDW Plt Count Lymph % (Auto) Harper % (Auto) Lymph # Harper # Baso # Seg Neutrophils % Seg Neuts % (Manual) Lymphocytes % (Manual) Monocytes % (Manual) Eosinophils % (Manual) Basophils % (Manual) Nucleated RBC % Seg Neutrophils # Seg Neutrophils # Man Lymphocytes # (Manual) Monocytes # (Manual) Eosinophils # (Manual) Basophils # (Manual) PT INR Fibrinogen dRVVT Confirm Interp Factor V Activity POC ABG pH POC ABG pCO2 POC ABG pO2 ABG pO2 ABG HCO3 ABG Base Excess ABG Hemoglobin Oxyhemoglobin Sodium Potassium Chloride Carbon Dioxide BUN Creatinine Glucose POC Glucose 133 H 146 H 141 H Lactic Acid Calcium Ionized Calcium Phosphorus Magnesium Direct Bilirubin AST ALT Alkaline Phosphatase Lactate Dehydrogenase Troponin T C-Reactive Protein Total Protein Albumin Prealbumin Triglycerides Cholesterol LDL Cholesterol Direct HDL Cholesterol 25-OH Vitamin D Total PTH Intact Urine pH Urine WBC (Auto) Urine Creatinine Urine Total Protein Fluid Total Protein Vancomycin Trough Rheumatoid Factor Complement C4 Miscellaneous Test Crossmatch 11/30/16 11/30/16 11/30/16 04:17 04:17 04:32 WBC 12.0 H RBC 2.80 L Hgb 7.8 L Hct 23.6 L MCV MCH MCHC RDW 16.6 H Plt Count Lymph % (Auto) Harper % (Auto) 11.3 H Lymph # Harper # 1.4 H Baso # Seg Neutrophils % Seg Neuts % (Manual) Lymphocytes % (Manual) Monocytes % (Manual) Eosinophils % (Manual) Basophils % (Manual) Nucleated RBC % Seg Neutrophils # 8.2 H Seg Neutrophils # Man Lymphocytes # (Manual) Monocytes # (Manual) Eosinophils # (Manual) Basophils # (Manual) PT INR Fibrinogen dRVVT Confirm Interp Factor V Activity POC ABG pH POC ABG pCO2 POC ABG pO2 ABG pO2 ABG HCO3 ABG Base Excess ABG Hemoglobin Oxyhemoglobin Sodium 169 H* D Potassium 5.1 H Chloride 121.5 H Carbon Dioxide BUN 34 H Creatinine 1.3 H D Glucose 133 H POC Glucose 131 H Lactic Acid Calcium 10.3 H Ionized Calcium Phosphorus Magnesium Direct Bilirubin AST ALT Alkaline Phosphatase Lactate Dehydrogenase Troponin T C-Reactive Protein Total Protein Albumin Prealbumin Triglycerides Cholesterol LDL Cholesterol Direct HDL Cholesterol 25-OH Vitamin D Total PTH Intact Urine pH Urine WBC (Auto) Urine Creatinine Urine Total Protein Fluid Total Protein Vancomycin Trough Rheumatoid Factor Complement C4 Miscellaneous Test Crossmatch 11/30/16 11/30/16 11/30/16 05:45 11:10 17:26 WBC RBC Hgb Hct MCV MCH MCHC RDW Plt Count Lymph % (Auto) Harper % (Auto) Lymph # Harper # Baso # Seg Neutrophils % Seg Neuts % (Manual) Lymphocytes % (Manual) Monocytes % (Manual) Eosinophils % (Manual) Basophils % (Manual) Nucleated RBC % Seg Neutrophils # Seg Neutrophils # Man Lymphocytes # (Manual) Monocytes # (Manual) Eosinophils # (Manual) Basophils # (Manual) PT INR Fibrinogen dRVVT Confirm Interp Factor V Activity POC ABG pH POC ABG pCO2 POC ABG pO2 ABG pO2 ABG HCO3 ABG Base Excess ABG Hemoglobin Oxyhemoglobin Sodium Potassium Chloride Carbon Dioxide BUN 45 H Creatinine 1.6 H Glucose 131 H POC Glucose 146 H 134 H Lactic Acid Calcium Ionized Calcium Phosphorus Magnesium Direct Bilirubin AST ALT Alkaline Phosphatase Lactate Dehydrogenase Troponin T C-Reactive Protein Total Protein Albumin Prealbumin Triglycerides Cholesterol LDL Cholesterol Direct HDL Cholesterol 25-OH Vitamin D Total PTH Intact Urine pH Urine WBC (Auto) Urine Creatinine Urine Total Protein Fluid Total Protein Vancomycin Trough Rheumatoid Factor Complement C4 Miscellaneous Test Crossmatch 11/30/16 12/01/16 12/01/16 23:35 00:06 03:35 WBC RBC Hgb Hct MCV MCH MCHC RDW Plt Count Lymph % (Auto) Harper % (Auto) Lymph # Harper # Baso # Seg Neutrophils % Seg Neuts % (Manual) Lymphocytes % (Manual) Monocytes % (Manual) Eosinophils % (Manual) Basophils % (Manual) Nucleated RBC % Seg Neutrophils # Seg Neutrophils # Man Lymphocytes # (Manual) Monocytes # (Manual) Eosinophils # (Manual) Basophils # (Manual) PT INR Fibrinogen dRVVT Confirm Interp Factor V Activity POC ABG pH POC ABG pCO2 POC ABG pO2 ABG pO2 ABG HCO3 ABG Base Excess ABG Hemoglobin 6.9 L Oxyhemoglobin Sodium Potassium Chloride Carbon Dioxide BUN 58 H Creatinine 1.8 H Glucose 146 H POC Glucose 151 H Lactic Acid Calcium Ionized Calcium Phosphorus Magnesium Direct Bilirubin AST ALT Alkaline Phosphatase Lactate Dehydrogenase Troponin T C-Reactive Protein Total Protein Albumin Prealbumin Triglycerides Cholesterol LDL Cholesterol Direct HDL Cholesterol 25-OH Vitamin D Total PTH Intact Urine pH Urine WBC (Auto) Urine Creatinine Urine Total Protein Fluid Total Protein Vancomycin Trough Rheumatoid Factor Complement C4 Miscellaneous Test Crossmatch 12/01/16 12/01/16 12/01/16 03:35 05:47 11:52 WBC 12.3 H RBC 2.82 L Hgb 7.8 L Hct 23.7 L MCV MCH MCHC RDW 16.7 H Plt Count Lymph % (Auto) Harper % (Auto) 9.8 H Lymph # Harper # 1.2 H Baso # Seg Neutrophils % Seg Neuts % (Manual) Lymphocytes % (Manual) Monocytes % (Manual) Eosinophils % (Manual) Basophils % (Manual) Nucleated RBC % Seg Neutrophils # 8.4 H Seg Neutrophils # Man Lymphocytes # (Manual) Monocytes # (Manual) Eosinophils # (Manual) Basophils # (Manual) PT INR Fibrinogen dRVVT Confirm Interp Factor V Activity POC ABG pH POC ABG pCO2 POC ABG pO2 ABG pO2 ABG HCO3 ABG Base Excess ABG Hemoglobin Oxyhemoglobin Sodium Potassium Chloride Carbon Dioxide BUN Creatinine Glucose POC Glucose 152 H 152 H Lactic Acid Calcium Ionized Calcium Phosphorus Magnesium Direct Bilirubin AST ALT Alkaline Phosphatase Lactate Dehydrogenase Troponin T C-Reactive Protein Total Protein Albumin Prealbumin Triglycerides Cholesterol LDL Cholesterol Direct HDL Cholesterol 25-OH Vitamin D Total PTH Intact Urine pH Urine WBC (Auto) Urine Creatinine Urine Total Protein Fluid Total Protein Vancomycin Trough Rheumatoid Factor Complement C4 Miscellaneous Test Crossmatch 12/01/16 12/01/16 12/02/16 17:40 23:41 05:00 WBC RBC Hgb Hct MCV MCH MCHC RDW Plt Count Lymph % (Auto) Harper % (Auto) Lymph # Harper # Baso # Seg Neutrophils % Seg Neuts % (Manual) Lymphocytes % (Manual) Monocytes % (Manual) Eosinophils % (Manual) Basophils % (Manual) Nucleated RBC % Seg Neutrophils # Seg Neutrophils # Man Lymphocytes # (Manual) Monocytes # (Manual) Eosinophils # (Manual) Basophils # (Manual) PT INR Fibrinogen dRVVT Confirm Interp Factor V Activity POC ABG pH POC ABG pCO2 POC ABG pO2 ABG pO2 ABG HCO3 ABG Base Excess ABG Hemoglobin Oxyhemoglobin Sodium Potassium Chloride Carbon Dioxide BUN 45 H Creatinine Glucose 115 H POC Glucose 140 H 144 H Lactic Acid Calcium Ionized Calcium Phosphorus Magnesium Direct Bilirubin AST ALT Alkaline Phosphatase Lactate Dehydrogenase Troponin T C-Reactive Protein Total Protein Albumin Prealbumin Triglycerides Cholesterol LDL Cholesterol Direct HDL Cholesterol 25-OH Vitamin D Total PTH Intact Urine pH Urine WBC (Auto) Urine Creatinine Urine Total Protein Fluid Total Protein Vancomycin Trough Rheumatoid Factor Complement C4 Miscellaneous Test Crossmatch 12/02/16 12/02/16 12/02/16 05:31 11:20 17:38 WBC RBC Hgb Hct MCV MCH MCHC RDW Plt Count Lymph % (Auto) Harper % (Auto) Lymph # Harper # Baso # Seg Neutrophils % Seg Neuts % (Manual) Lymphocytes % (Manual) Monocytes % (Manual) Eosinophils % (Manual) Basophils % (Manual) Nucleated RBC % Seg Neutrophils # Seg Neutrophils # Man Lymphocytes # (Manual) Monocytes # (Manual) Eosinophils # (Manual) Basophils # (Manual) PT INR Fibrinogen dRVVT Confirm Interp Factor V Activity POC ABG pH POC ABG pCO2 POC ABG pO2 ABG pO2 ABG HCO3 ABG Base Excess ABG Hemoglobin Oxyhemoglobin Sodium Potassium Chloride Carbon Dioxide BUN Creatinine Glucose POC Glucose 136 H 177 H 139 H Lactic Acid Calcium Ionized Calcium Phosphorus Magnesium Direct Bilirubin AST ALT Alkaline Phosphatase Lactate Dehydrogenase Troponin T C-Reactive Protein Total Protein Albumin Prealbumin Triglycerides Cholesterol LDL Cholesterol Direct HDL Cholesterol 25-OH Vitamin D Total PTH Intact Urine pH Urine WBC (Auto) Urine Creatinine Urine Total Protein Fluid Total Protein Vancomycin Trough Rheumatoid Factor Complement C4 Miscellaneous Test Crossmatch 12/02/16 12/03/16 12/03/16 23:43 04:00 04:00 WBC 20.4 H RBC 2.74 L Hgb 7.4 L Hct 23.6 L MCV MCH 27 L MCHC RDW 17.1 H Plt Count Lymph % (Auto) Harper % (Auto) Lymph # Harper # Baso # Seg Neutrophils % Seg Neuts % (Manual) 31.0 L Lymphocytes % (Manual) Monocytes % (Manual) Eosinophils % (Manual) Basophils % (Manual) Nucleated RBC % Seg Neutrophils # Seg Neutrophils # Man Lymphocytes # (Manual) Monocytes # (Manual) Eosinophils # (Manual) Basophils # (Manual) PT INR Fibrinogen dRVVT Confirm Interp Factor V Activity POC ABG pH POC ABG pCO2 POC ABG pO2 ABG pO2 ABG HCO3 ABG Base Excess ABG Hemoglobin Oxyhemoglobin Sodium Potassium Chloride Carbon Dioxide BUN 61 H Creatinine 1.6 H Glucose 119 H POC Glucose 158 H Lactic Acid Calcium Ionized Calcium Phosphorus Magnesium Direct Bilirubin AST ALT Alkaline Phosphatase Lactate Dehydrogenase Troponin T C-Reactive Protein Total Protein Albumin Prealbumin Triglycerides Cholesterol LDL Cholesterol Direct HDL Cholesterol 25-OH Vitamin D Total PTH Intact Urine pH Urine WBC (Auto) Urine Creatinine Urine Total Protein Fluid Total Protein Vancomycin Trough Rheumatoid Factor Complement C4 Miscellaneous Test Crossmatch 12/03/16 12/03/16 12/03/16 05:02 12:11 18:16 WBC RBC Hgb Hct MCV MCH MCHC RDW Plt Count Lymph % (Auto) Harper % (Auto) Lymph # Harper # Baso # Seg Neutrophils % Seg Neuts % (Manual) Lymphocytes % (Manual) Monocytes % (Manual) Eosinophils % (Manual) Basophils % (Manual) Nucleated RBC % Seg Neutrophils # Seg Neutrophils # Man Lymphocytes # (Manual) Monocytes # (Manual) Eosinophils # (Manual) Basophils # (Manual) PT INR Fibrinogen dRVVT Confirm Interp Factor V Activity POC ABG pH POC ABG pCO2 POC ABG pO2 ABG pO2 ABG HCO3 ABG Base Excess ABG Hemoglobin Oxyhemoglobin Sodium Potassium Chloride Carbon Dioxide BUN Creatinine Glucose POC Glucose 146 H 157 H 124 H Lactic Acid Calcium Ionized Calcium Phosphorus Magnesium Direct Bilirubin AST ALT Alkaline Phosphatase Lactate Dehydrogenase Troponin T C-Reactive Protein Total Protein Albumin Prealbumin Triglycerides Cholesterol LDL Cholesterol Direct HDL Cholesterol 25-OH Vitamin D Total PTH Intact Urine pH Urine WBC (Auto) Urine Creatinine Urine Total Protein Fluid Total Protein Vancomycin Trough Rheumatoid Factor Complement C4 Miscellaneous Test Crossmatch 12/03/16 12/04/16 12/04/16 23:41 04:00 04:45 WBC RBC Hgb Hct MCV MCH MCHC RDW Plt Count Lymph % (Auto) Harper % (Auto) Lymph # Harper # Baso # Seg Neutrophils % Seg Neuts % (Manual) Lymphocytes % (Manual) Monocytes % (Manual) Eosinophils % (Manual) Basophils % (Manual) Nucleated RBC % Seg Neutrophils # Seg Neutrophils # Man Lymphocytes # (Manual) Monocytes # (Manual) Eosinophils # (Manual) Basophils # (Manual) PT INR Fibrinogen dRVVT Confirm Interp Factor V Activity POC ABG pH POC ABG pCO2 POC ABG pO2 ABG pO2 ABG HCO3 ABG Base Excess ABG Hemoglobin Oxyhemoglobin Sodium Potassium Chloride Carbon Dioxide BUN 76 H Creatinine 1.6 H Glucose POC Glucose 130 H 136 H Lactic Acid Calcium Ionized Calcium Phosphorus Magnesium Direct Bilirubin AST ALT Alkaline Phosphatase 155 H Lactate Dehydrogenase Troponin T C-Reactive Protein Total Protein 5.5 L Albumin 1.5 L Prealbumin Triglycerides Cholesterol LDL Cholesterol Direct HDL Cholesterol 25-OH Vitamin D Total PTH Intact Urine pH Urine WBC (Auto) Urine Creatinine Urine Total Protein Fluid Total Protein Vancomycin Trough Rheumatoid Factor Complement C4 Miscellaneous Test Crossmatch 12/04/16 12/04/16 12/05/16 12:08 17:23 00:10 WBC RBC Hgb Hct MCV MCH MCHC RDW Plt Count Lymph % (Auto) Harper % (Auto) Lymph # Harper # Baso # Seg Neutrophils % Seg Neuts % (Manual) Lymphocytes % (Manual) Monocytes % (Manual) Eosinophils % (Manual) Basophils % (Manual) Nucleated RBC % Seg Neutrophils # Seg Neutrophils # Man Lymphocytes # (Manual) Monocytes # (Manual) Eosinophils # (Manual) Basophils # (Manual) PT INR Fibrinogen dRVVT Confirm Interp Factor V Activity POC ABG pH POC ABG pCO2 POC ABG pO2 ABG pO2 ABG HCO3 ABG Base Excess ABG Hemoglobin Oxyhemoglobin Sodium Potassium Chloride Carbon Dioxide BUN Creatinine Glucose POC Glucose 114 H 129 H 124 H Lactic Acid Calcium Ionized Calcium Phosphorus Magnesium Direct Bilirubin AST ALT Alkaline Phosphatase Lactate Dehydrogenase Troponin T C-Reactive Protein Total Protein Albumin Prealbumin Triglycerides Cholesterol LDL Cholesterol Direct HDL Cholesterol 25-OH Vitamin D Total PTH Intact Urine pH Urine WBC (Auto) Urine Creatinine Urine Total Protein Fluid Total Protein Vancomycin Trough Rheumatoid Factor Complement C4 Miscellaneous Test Crossmatch 12/05/16 12/05/16 12/05/16 05:00 05:00 05:18 WBC RBC Hgb Hct MCV MCH MCHC RDW Plt Count Lymph % (Auto) Harper % (Auto) Lymph # Harper # Baso # Seg Neutrophils % Seg Neuts % (Manual) Lymphocytes % (Manual) Monocytes % (Manual) Eosinophils % (Manual) Basophils % (Manual) Nucleated RBC % Seg Neutrophils # Seg Neutrophils # Man Lymphocytes # (Manual) Monocytes # (Manual) Eosinophils # (Manual) Basophils # (Manual) PT INR Fibrinogen dRVVT Confirm Interp Factor V Activity POC ABG pH POC ABG pCO2 POC ABG pO2 ABG pO2 ABG HCO3 ABG Base Excess ABG Hemoglobin Oxyhemoglobin Sodium Potassium Chloride Carbon Dioxide 21 L BUN 85 H Creatinine 1.9 H Glucose 131 H POC Glucose 154 H Lactic Acid Calcium Ionized Calcium Phosphorus Magnesium Direct Bilirubin AST ALT Alkaline Phosphatase Lactate Dehydrogenase Troponin T C-Reactive Protein 19.30 H Total Protein Albumin Prealbumin Triglycerides Cholesterol LDL Cholesterol Direct HDL Cholesterol 25-OH Vitamin D Total PTH Intact Urine pH Urine WBC (Auto) Urine Creatinine Urine Total Protein Fluid Total Protein Vancomycin Trough Rheumatoid Factor Complement C4 Miscellaneous Test Crossmatch 12/05/16 12/05/16 12/05/16 11:43 17:46 23:25 WBC RBC Hgb Hct MCV MCH MCHC RDW Plt Count Lymph % (Auto) Harper % (Auto) Lymph # Harper # Baso # Seg Neutrophils % Seg Neuts % (Manual) Lymphocytes % (Manual) Monocytes % (Manual) Eosinophils % (Manual) Basophils % (Manual) Nucleated RBC % Seg Neutrophils # Seg Neutrophils # Man Lymphocytes # (Manual) Monocytes # (Manual) Eosinophils # (Manual) Basophils # (Manual) PT INR Fibrinogen dRVVT Confirm Interp Factor V Activity POC ABG pH POC ABG pCO2 POC ABG pO2 ABG pO2 ABG HCO3 ABG Base Excess ABG Hemoglobin Oxyhemoglobin Sodium Potassium Chloride Carbon Dioxide BUN Creatinine Glucose POC Glucose 117 H 113 H 111 H Lactic Acid Calcium Ionized Calcium Phosphorus Magnesium Direct Bilirubin AST ALT Alkaline Phosphatase Lactate Dehydrogenase Troponin T C-Reactive Protein Total Protein Albumin Prealbumin Triglycerides Cholesterol LDL Cholesterol Direct HDL Cholesterol 25-OH Vitamin D Total PTH Intact Urine pH Urine WBC (Auto) Urine Creatinine Urine Total Protein Fluid Total Protein Vancomycin Trough Rheumatoid Factor Complement C4 Miscellaneous Test Crossmatch 12/05/16 12/06/16 12/06/16 Unknown 04:58 06:00 WBC RBC Hgb Hct MCV MCH MCHC RDW Plt Count Lymph % (Auto) Harper % (Auto) Lymph # Harper # Baso # Seg Neutrophils % Seg Neuts % (Manual) Lymphocytes % (Manual) Monocytes % (Manual) Eosinophils % (Manual) Basophils % (Manual) Nucleated RBC % Seg Neutrophils # Seg Neutrophils # Man Lymphocytes # (Manual) Monocytes # (Manual) Eosinophils # (Manual) Basophils # (Manual) PT INR Fibrinogen dRVVT Confirm Interp Factor V Activity POC ABG pH POC ABG pCO2 POC ABG pO2 ABG pO2 75.2 L ABG HCO3 ABG Base Excess -3.4 L ABG Hemoglobin 7.4 L Oxyhemoglobin 94.5 L Sodium Potassium Chloride Carbon Dioxide 20 L BUN 99 H Creatinine 2.1 H Glucose 126 H POC Glucose 145 H Lactic Acid Calcium Ionized Calcium Phosphorus 4.80 H Magnesium Direct Bilirubin AST ALT Alkaline Phosphatase Lactate Dehydrogenase Troponin T C-Reactive Protein Total Protein Albumin Prealbumin Triglycerides Cholesterol LDL Cholesterol Direct HDL Cholesterol 25-OH Vitamin D Total PTH Intact Urine pH Urine WBC (Auto) Urine Creatinine Urine Total Protein Fluid Total Protein Vancomycin Trough Rheumatoid Factor Complement C4 Miscellaneous Test Crossmatch 12/06/16 12/06/16 12/06/16 06:46 11:54 17:55 WBC RBC Hgb 8.3 L Hct 26.4 L MCV MCH MCHC RDW Plt Count Lymph % (Auto) Harper % (Auto) Lymph # Harper # Baso # Seg Neutrophils % Seg Neuts % (Manual) Lymphocytes % (Manual) Monocytes % (Manual) Eosinophils % (Manual) Basophils % (Manual) Nucleated RBC % Seg Neutrophils # Seg Neutrophils # Man Lymphocytes # (Manual) Monocytes # (Manual) Eosinophils # (Manual) Basophils # (Manual) PT INR Fibrinogen dRVVT Confirm Interp Factor V Activity POC ABG pH POC ABG pCO2 POC ABG pO2 ABG pO2 ABG HCO3 ABG Base Excess ABG Hemoglobin Oxyhemoglobin Sodium Potassium Chloride Carbon Dioxide BUN Creatinine Glucose POC Glucose 126 H 157 H Lactic Acid Calcium Ionized Calcium Phosphorus Magnesium Direct Bilirubin AST ALT Alkaline Phosphatase Lactate Dehydrogenase Troponin T C-Reactive Protein Total Protein Albumin Prealbumin Triglycerides Cholesterol LDL Cholesterol Direct HDL Cholesterol 25-OH Vitamin D Total PTH Intact Urine pH Urine WBC (Auto) Urine Creatinine Urine Total Protein Fluid Total Protein Vancomycin Trough Rheumatoid Factor Complement C4 Miscellaneous Test Crossmatch 12/06/16 12/07/16 12/07/16 23:59 05:34 06:30 WBC RBC Hgb Hct MCV MCH MCHC RDW Plt Count Lymph % (Auto) Harper % (Auto) Lymph # Harper # Baso # Seg Neutrophils % Seg Neuts % (Manual) Lymphocytes % (Manual) Monocytes % (Manual) Eosinophils % (Manual) Basophils % (Manual) Nucleated RBC % Seg Neutrophils # Seg Neutrophils # Man Lymphocytes # (Manual) Monocytes # (Manual) Eosinophils # (Manual) Basophils # (Manual) PT INR Fibrinogen dRVVT Confirm Interp Factor V Activity POC ABG pH POC ABG pCO2 POC ABG pO2 ABG pO2 ABG HCO3 ABG Base Excess ABG Hemoglobin Oxyhemoglobin Sodium Potassium Chloride Carbon Dioxide BUN 67 H Creatinine 1.4 H Glucose 126 H POC Glucose 129 H 129 H Lactic Acid Calcium Ionized Calcium Phosphorus Magnesium Direct Bilirubin AST ALT Alkaline Phosphatase Lactate Dehydrogenase Troponin T C-Reactive Protein Total Protein Albumin Prealbumin Triglycerides Cholesterol LDL Cholesterol Direct HDL Cholesterol 25-OH Vitamin D Total PTH Intact Urine pH Urine WBC (Auto) Urine Creatinine Urine Total Protein Fluid Total Protein Vancomycin Trough Rheumatoid Factor Complement C4 Miscellaneous Test Crossmatch 12/07/16 12/07/16 12/07/16 06:30 08:00 09:45 WBC 18.8 H RBC 2.52 L Hgb 6.9 L 6.8 L Hct 21.2 L 21.1 L MCV MCH 27 L MCHC RDW 18.0 H Plt Count Lymph % (Auto) Harper % (Auto) 9.9 H Lymph # Harper # 1.9 H Baso # Seg Neutrophils % 71.8 H Seg Neuts % (Manual) Lymphocytes % (Manual) Monocytes % (Manual) Eosinophils % (Manual) Basophils % (Manual) Nucleated RBC % Seg Neutrophils # 13.5 H Seg Neutrophils # Man Lymphocytes # (Manual) Monocytes # (Manual) Eosinophils # (Manual) Basophils # (Manual) PT INR Fibrinogen dRVVT Confirm Interp Factor V Activity POC ABG pH POC ABG pCO2 POC ABG pO2 ABG pO2 ABG HCO3 ABG Base Excess ABG Hemoglobin Oxyhemoglobin Sodium Potassium Chloride Carbon Dioxide BUN Creatinine Glucose POC Glucose Lactic Acid Calcium Ionized Calcium Phosphorus Magnesium Direct Bilirubin AST ALT Alkaline Phosphatase Lactate Dehydrogenase Troponin T C-Reactive Protein Total Protein Albumin Prealbumin Triglycerides Cholesterol LDL Cholesterol Direct HDL Cholesterol 25-OH Vitamin D Total PTH Intact Urine pH Urine WBC (Auto) Urine Creatinine Urine Total Protein Fluid Total Protein Vancomycin Trough Rheumatoid Factor Complement C4 Miscellaneous Test Crossmatch See Detail 12/07/16 12/07/16 12/07/16 11:44 18:19 23:59 WBC RBC Hgb Hct MCV MCH MCHC RDW Plt Count Lymph % (Auto) Harper % (Auto) Lymph # Harper # Baso # Seg Neutrophils % Seg Neuts % (Manual) Lymphocytes % (Manual) Monocytes % (Manual) Eosinophils % (Manual) Basophils % (Manual) Nucleated RBC % Seg Neutrophils # Seg Neutrophils # Man Lymphocytes # (Manual) Monocytes # (Manual) Eosinophils # (Manual) Basophils # (Manual) PT INR Fibrinogen dRVVT Confirm Interp Factor V Activity POC ABG pH POC ABG pCO2 POC ABG pO2 ABG pO2 ABG HCO3 ABG Base Excess ABG Hemoglobin Oxyhemoglobin Sodium Potassium Chloride Carbon Dioxide BUN Creatinine Glucose POC Glucose 137 H 138 H 133 H Lactic Acid Calcium Ionized Calcium Phosphorus Magnesium Direct Bilirubin AST ALT Alkaline Phosphatase Lactate Dehydrogenase Troponin T C-Reactive Protein Total Protein Albumin Prealbumin Triglycerides Cholesterol LDL Cholesterol Direct HDL Cholesterol 25-OH Vitamin D Total PTH Intact Urine pH Urine WBC (Auto) Urine Creatinine Urine Total Protein Fluid Total Protein Vancomycin Trough Rheumatoid Factor Complement C4 Miscellaneous Test Crossmatch 12/08/16 12/08/16 12/08/16 05:25 05:30 05:30 WBC 23.8 H RBC 2.88 L Hgb 8.1 L Hct 24.3 L MCV MCH MCHC RDW 16.7 H Plt Count Lymph % (Auto) Harper % (Auto) Lymph # Harper # Baso # Seg Neutrophils % Seg Neuts % (Manual) 76.0 H Lymphocytes % (Manual) 9.0 L Monocytes % (Manual) 9.0 H Eosinophils % (Manual) Basophils % (Manual) Nucleated RBC % Seg Neutrophils # Seg Neutrophils # Man 18.1 H Lymphocytes # (Manual) Monocytes # (Manual) 2.1 H Eosinophils # (Manual) Basophils # (Manual) PT INR Fibrinogen dRVVT Confirm Interp Factor V Activity POC ABG pH POC ABG pCO2 POC ABG pO2 ABG pO2 ABG HCO3 ABG Base Excess ABG Hemoglobin Oxyhemoglobin Sodium Potassium Chloride Carbon Dioxide 21 L BUN 76 H Creatinine 1.6 H Glucose 133 H POC Glucose 177 H Lactic Acid Calcium Ionized Calcium Phosphorus Magnesium Direct Bilirubin AST ALT Alkaline Phosphatase Lactate Dehydrogenase Troponin T C-Reactive Protein Total Protein Albumin Prealbumin Triglycerides Cholesterol LDL Cholesterol Direct HDL Cholesterol 25-OH Vitamin D Total PTH Intact Urine pH Urine WBC (Auto) Urine Creatinine Urine Total Protein Fluid Total Protein Vancomycin Trough Rheumatoid Factor Complement C4 Miscellaneous Test Crossmatch 12/08/16 12/08/16 12/09/16 11:45 18:00 00:00 WBC RBC Hgb Hct MCV MCH MCHC RDW Plt Count Lymph % (Auto) Harper % (Auto) Lymph # Harper # Baso # Seg Neutrophils % Seg Neuts % (Manual) Lymphocytes % (Manual) Monocytes % (Manual) Eosinophils % (Manual) Basophils % (Manual) Nucleated RBC % Seg Neutrophils # Seg Neutrophils # Man Lymphocytes # (Manual) Monocytes # (Manual) Eosinophils # (Manual) Basophils # (Manual) PT INR Fibrinogen dRVVT Confirm Interp Factor V Activity POC ABG pH POC ABG pCO2 POC ABG pO2 ABG pO2 ABG HCO3 ABG Base Excess ABG Hemoglobin Oxyhemoglobin Sodium Potassium Chloride Carbon Dioxide BUN Creatinine Glucose POC Glucose 163 H 123 H 137 H Lactic Acid Calcium Ionized Calcium Phosphorus Magnesium Direct Bilirubin AST ALT Alkaline Phosphatase Lactate Dehydrogenase Troponin T C-Reactive Protein Total Protein Albumin Prealbumin Triglycerides Cholesterol LDL Cholesterol Direct HDL Cholesterol 25-OH Vitamin D Total PTH Intact Urine pH Urine WBC (Auto) Urine Creatinine Urine Total Protein Fluid Total Protein Vancomycin Trough Rheumatoid Factor Complement C4 Miscellaneous Test Crossmatch 12/09/16 12/09/16 12/09/16 05:34 06:00 06:00 WBC 15.5 H RBC 2.87 L Hgb 8.0 L Hct 24.2 L MCV MCH MCHC RDW 17.2 H Plt Count Lymph % (Auto) Harper % (Auto) 11.6 H Lymph # Harper # 1.8 H Baso # Seg Neutrophils % 70.8 H Seg Neuts % (Manual) Lymphocytes % (Manual) Monocytes % (Manual) Eosinophils % (Manual) Basophils % (Manual) Nucleated RBC % Seg Neutrophils # 11.0 H Seg Neutrophils # Man Lymphocytes # (Manual) Monocytes # (Manual) Eosinophils # (Manual) Basophils # (Manual) PT INR Fibrinogen dRVVT Confirm Interp Factor V Activity POC ABG pH POC ABG pCO2 POC ABG pO2 ABG pO2 ABG HCO3 ABG Base Excess ABG Hemoglobin Oxyhemoglobin Sodium Potassium Chloride Carbon Dioxide BUN 51 H Creatinine Glucose 117 H POC Glucose 136 H Lactic Acid Calcium Ionized Calcium Phosphorus Magnesium Direct Bilirubin AST ALT Alkaline Phosphatase Lactate Dehydrogenase Troponin T C-Reactive Protein Total Protein Albumin Prealbumin Triglycerides Cholesterol LDL Cholesterol Direct HDL Cholesterol 25-OH Vitamin D Total PTH Intact Urine pH Urine WBC (Auto) Urine Creatinine Urine Total Protein Fluid Total Protein Vancomycin Trough Rheumatoid Factor Complement C4 Miscellaneous Test Crossmatch 12/09/16 12/09/16 12/09/16 12:29 17:52 23:10 WBC RBC Hgb Hct MCV MCH MCHC RDW Plt Count Lymph % (Auto) Harper % (Auto) Lymph # Harper # Baso # Seg Neutrophils % Seg Neuts % (Manual) Lymphocytes % (Manual) Monocytes % (Manual) Eosinophils % (Manual) Basophils % (Manual) Nucleated RBC % Seg Neutrophils # Seg Neutrophils # Man Lymphocytes # (Manual) Monocytes # (Manual) Eosinophils # (Manual) Basophils # (Manual) PT INR Fibrinogen dRVVT Confirm Interp Factor V Activity POC ABG pH POC ABG pCO2 POC ABG pO2 ABG pO2 ABG HCO3 ABG Base Excess ABG Hemoglobin Oxyhemoglobin Sodium Potassium Chloride Carbon Dioxide BUN Creatinine Glucose POC Glucose 139 H 140 H 129 H Lactic Acid Calcium Ionized Calcium Phosphorus Magnesium Direct Bilirubin AST ALT Alkaline Phosphatase Lactate Dehydrogenase Troponin T C-Reactive Protein Total Protein Albumin Prealbumin Triglycerides Cholesterol LDL Cholesterol Direct HDL Cholesterol 25-OH Vitamin D Total PTH Intact Urine pH Urine WBC (Auto) Urine Creatinine Urine Total Protein Fluid Total Protein Vancomycin Trough Rheumatoid Factor Complement C4 Miscellaneous Test Crossmatch 12/10/16 12/10/16 12/10/16 05:00 05:00 06:54 WBC 15.7 H RBC 2.87 L Hgb 8.2 L Hct 24.4 L MCV MCH MCHC RDW 17.2 H Plt Count Lymph % (Auto) Harper % (Auto) 8.3 H Lymph # Harper # 1.3 H Baso # Seg Neutrophils % 72.8 H Seg Neuts % (Manual) Lymphocytes % (Manual) Monocytes % (Manual) Eosinophils % (Manual) Basophils % (Manual) Nucleated RBC % Seg Neutrophils # 11.4 H Seg Neutrophils # Man Lymphocytes # (Manual) Monocytes # (Manual) Eosinophils # (Manual) Basophils # (Manual) PT INR Fibrinogen dRVVT Confirm Interp Factor V Activity POC ABG pH POC ABG pCO2 POC ABG pO2 ABG pO2 ABG HCO3 ABG Base Excess ABG Hemoglobin Oxyhemoglobin Sodium Potassium Chloride Carbon Dioxide BUN 64 H Creatinine 1.4 H Glucose 134 H POC Glucose 154 H Lactic Acid Calcium Ionized Calcium Phosphorus Magnesium Direct Bilirubin AST ALT Alkaline Phosphatase Lactate Dehydrogenase Troponin T C-Reactive Protein Total Protein Albumin Prealbumin Triglycerides Cholesterol LDL Cholesterol Direct HDL Cholesterol 25-OH Vitamin D Total PTH Intact Urine pH Urine WBC (Auto) Urine Creatinine Urine Total Protein Fluid Total Protein Vancomycin Trough Rheumatoid Factor Complement C4 Miscellaneous Test Crossmatch 12/10/16 12/10/16 12/10/16 11:58 17:29 23:52 WBC RBC Hgb Hct MCV MCH MCHC RDW Plt Count Lymph % (Auto) Harper % (Auto) Lymph # Harper # Baso # Seg Neutrophils % Seg Neuts % (Manual) Lymphocytes % (Manual) Monocytes % (Manual) Eosinophils % (Manual) Basophils % (Manual) Nucleated RBC % Seg Neutrophils # Seg Neutrophils # Man Lymphocytes # (Manual) Monocytes # (Manual) Eosinophils # (Manual) Basophils # (Manual) PT INR Fibrinogen dRVVT Confirm Interp Factor V Activity POC ABG pH POC ABG pCO2 POC ABG pO2 ABG pO2 ABG HCO3 ABG Base Excess ABG Hemoglobin Oxyhemoglobin Sodium Potassium Chloride Carbon Dioxide BUN Creatinine Glucose POC Glucose 144 H 163 H 125 H Lactic Acid Calcium Ionized Calcium Phosphorus Magnesium Direct Bilirubin AST ALT Alkaline Phosphatase Lactate Dehydrogenase Troponin T C-Reactive Protein Total Protein Albumin Prealbumin Triglycerides Cholesterol LDL Cholesterol Direct HDL Cholesterol 25-OH Vitamin D Total PTH Intact Urine pH Urine WBC (Auto) Urine Creatinine Urine Total Protein Fluid Total Protein Vancomycin Trough Rheumatoid Factor Complement C4 Miscellaneous Test Crossmatch 12/11/16 12/11/16 12/11/16 05:38 06:30 06:30 WBC 14.4 H RBC 2.76 L Hgb 7.7 L Hct 23.4 L MCV MCH MCHC RDW 17.2 H Plt Count Lymph % (Auto) Harper % (Auto) 8.8 H Lymph # Harper # 1.3 H Baso # Seg Neutrophils % 72.5 H Seg Neuts % (Manual) Lymphocytes % (Manual) Monocytes % (Manual) Eosinophils % (Manual) Basophils % (Manual) Nucleated RBC % Seg Neutrophils # 10.5 H Seg Neutrophils # Man Lymphocytes # (Manual) Monocytes # (Manual) Eosinophils # (Manual) Basophils # (Manual) PT INR Fibrinogen dRVVT Confirm Interp Factor V Activity POC ABG pH POC ABG pCO2 POC ABG pO2 ABG pO2 ABG HCO3 ABG Base Excess ABG Hemoglobin Oxyhemoglobin Sodium Potassium Chloride Carbon Dioxide BUN 43 H Creatinine Glucose 124 H POC Glucose 141 H Lactic Acid Calcium 8.3 L Ionized Calcium Phosphorus Magnesium 1.60 L Direct Bilirubin AST ALT Alkaline Phosphatase Lactate Dehydrogenase Troponin T C-Reactive Protein Total Protein Albumin Prealbumin Triglycerides Cholesterol LDL Cholesterol Direct HDL Cholesterol 25-OH Vitamin D Total PTH Intact Urine pH Urine WBC (Auto) Urine Creatinine Urine Total Protein Fluid Total Protein Vancomycin Trough Rheumatoid Factor Complement C4 Miscellaneous Test Crossmatch 12/11/16 12/11/16 12/11/16 11:15 17:59 23:48 WBC RBC Hgb Hct MCV MCH MCHC RDW Plt Count Lymph % (Auto) Harper % (Auto) Lymph # Harper # Baso # Seg Neutrophils % Seg Neuts % (Manual) Lymphocytes % (Manual) Monocytes % (Manual) Eosinophils % (Manual) Basophils % (Manual) Nucleated RBC % Seg Neutrophils # Seg Neutrophils # Man Lymphocytes # (Manual) Monocytes # (Manual) Eosinophils # (Manual) Basophils # (Manual) PT INR Fibrinogen dRVVT Confirm Interp Factor V Activity POC ABG pH POC ABG pCO2 POC ABG pO2 ABG pO2 ABG HCO3 ABG Base Excess ABG Hemoglobin Oxyhemoglobin Sodium Potassium Chloride Carbon Dioxide BUN Creatinine Glucose POC Glucose 188 H 106 H 119 H Lactic Acid Calcium Ionized Calcium Phosphorus Magnesium Direct Bilirubin AST ALT Alkaline Phosphatase Lactate Dehydrogenase Troponin T C-Reactive Protein Total Protein Albumin Prealbumin Triglycerides Cholesterol LDL Cholesterol Direct HDL Cholesterol 25-OH Vitamin D Total PTH Intact Urine pH Urine WBC (Auto) Urine Creatinine Urine Total Protein Fluid Total Protein Vancomycin Trough Rheumatoid Factor Complement C4 Miscellaneous Test Crossmatch 12/12/16 12/12/16 12/12/16 05:00 06:01 12:20 WBC 16.7 H RBC 2.87 L Hgb 8.0 L Hct 24.2 L MCV MCH MCHC RDW 17.6 H Plt Count Lymph % (Auto) Harper % (Auto) Lymph # Harper # 1.2 H Baso # Seg Neutrophils % 75.3 H Seg Neuts % (Manual) Lymphocytes % (Manual) Monocytes % (Manual) Eosinophils % (Manual) Basophils % (Manual) Nucleated RBC % Seg Neutrophils # 12.6 H Seg Neutrophils # Man Lymphocytes # (Manual) Monocytes # (Manual) Eosinophils # (Manual) Basophils # (Manual) PT INR Fibrinogen dRVVT Confirm Interp Factor V Activity POC ABG pH POC ABG pCO2 POC ABG pO2 ABG pO2 ABG HCO3 ABG Base Excess ABG Hemoglobin Oxyhemoglobin Sodium Potassium Chloride Carbon Dioxide BUN Creatinine Glucose POC Glucose 134 H 149 H Lactic Acid Calcium Ionized Calcium Phosphorus Magnesium Direct Bilirubin AST ALT Alkaline Phosphatase Lactate Dehydrogenase Troponin T C-Reactive Protein Total Protein Albumin Prealbumin Triglycerides Cholesterol LDL Cholesterol Direct HDL Cholesterol 25-OH Vitamin D Total PTH Intact Urine pH Urine WBC (Auto) Urine Creatinine Urine Total Protein Fluid Total Protein Vancomycin Trough Rheumatoid Factor Complement C4 Miscellaneous Test Crossmatch 12/12/16 12/12/16 12/12/16 17:38 23:01 Unknown WBC RBC Hgb Hct MCV MCH MCHC RDW Plt Count Lymph % (Auto) Harper % (Auto) Lymph # Harper # Baso # Seg Neutrophils % Seg Neuts % (Manual) Lymphocytes % (Manual) Monocytes % (Manual) Eosinophils % (Manual) Basophils % (Manual) Nucleated RBC % Seg Neutrophils # Seg Neutrophils # Man Lymphocytes # (Manual) Monocytes # (Manual) Eosinophils # (Manual) Basophils # (Manual) PT INR Fibrinogen dRVVT Confirm Interp Factor V Activity POC ABG pH POC ABG pCO2 POC ABG pO2 ABG pO2 ABG HCO3 ABG Base Excess ABG Hemoglobin Oxyhemoglobin Sodium Potassium Chloride Carbon Dioxide BUN 60 H Creatinine 1.3 H Glucose 126 H POC Glucose 127 H 144 H Lactic Acid Calcium Ionized Calcium Phosphorus Magnesium Direct Bilirubin AST ALT Alkaline Phosphatase Lactate Dehydrogenase Troponin T C-Reactive Protein Total Protein Albumin Prealbumin Triglycerides Cholesterol LDL Cholesterol Direct HDL Cholesterol 25-OH Vitamin D Total PTH Intact Urine pH Urine WBC (Auto) Urine Creatinine Urine Total Protein Fluid Total Protein Vancomycin Trough Rheumatoid Factor Complement C4 Miscellaneous Test Crossmatch 12/13/16 12/13/16 12/13/16 04:00 04:00 05:19 WBC 18.7 H RBC 2.89 L Hgb 8.3 L Hct 24.6 L MCV MCH MCHC RDW 17.5 H Plt Count Lymph % (Auto) Harper % (Auto) Lymph # Harper # 1.3 H Baso # Seg Neutrophils % 71.5 H Seg Neuts % (Manual) Lymphocytes % (Manual) Monocytes % (Manual) Eosinophils % (Manual) Basophils % (Manual) Nucleated RBC % Seg Neutrophils # 13.4 H Seg Neutrophils # Man Lymphocytes # (Manual) Monocytes # (Manual) Eosinophils # (Manual) Basophils # (Manual) PT INR Fibrinogen dRVVT Confirm Interp Factor V Activity POC ABG pH POC ABG pCO2 POC ABG pO2 ABG pO2 ABG HCO3 ABG Base Excess ABG Hemoglobin Oxyhemoglobin Sodium Potassium Chloride Carbon Dioxide BUN 73 H Creatinine 1.5 H Glucose 141 H POC Glucose 171 H Lactic Acid Calcium Ionized Calcium Phosphorus Magnesium Direct Bilirubin AST ALT Alkaline Phosphatase Lactate Dehydrogenase Troponin T C-Reactive Protein Total Protein Albumin Prealbumin Triglycerides Cholesterol LDL Cholesterol Direct HDL Cholesterol 25-OH Vitamin D Total PTH Intact Urine pH Urine WBC (Auto) Urine Creatinine Urine Total Protein Fluid Total Protein Vancomycin Trough Rheumatoid Factor Complement C4 Miscellaneous Test Crossmatch 12/13/16 12/13/16 12/14/16 12:28 16:48 00:01 WBC RBC Hgb Hct MCV MCH MCHC RDW Plt Count Lymph % (Auto) Harper % (Auto) Lymph # Harper # Baso # Seg Neutrophils % Seg Neuts % (Manual) Lymphocytes % (Manual) Monocytes % (Manual) Eosinophils % (Manual) Basophils % (Manual) Nucleated RBC % Seg Neutrophils # Seg Neutrophils # Man Lymphocytes # (Manual) Monocytes # (Manual) Eosinophils # (Manual) Basophils # (Manual) PT INR Fibrinogen dRVVT Confirm Interp Factor V Activity POC ABG pH POC ABG pCO2 POC ABG pO2 ABG pO2 ABG HCO3 ABG Base Excess ABG Hemoglobin Oxyhemoglobin Sodium Potassium Chloride Carbon Dioxide BUN Creatinine Glucose POC Glucose 206 H 173 H 139 H Lactic Acid Calcium Ionized Calcium Phosphorus Magnesium Direct Bilirubin AST ALT Alkaline Phosphatase Lactate Dehydrogenase Troponin T C-Reactive Protein Total Protein Albumin Prealbumin Triglycerides Cholesterol LDL Cholesterol Direct HDL Cholesterol 25-OH Vitamin D Total PTH Intact Urine pH Urine WBC (Auto) Urine Creatinine Urine Total Protein Fluid Total Protein Vancomycin Trough Rheumatoid Factor Complement C4 Miscellaneous Test Crossmatch 12/14/16 12/14/16 12/14/16 05:16 06:10 11:17 WBC RBC Hgb Hct MCV MCH MCHC RDW Plt Count Lymph % (Auto) Harper % (Auto) Lymph # Harper # Baso # Seg Neutrophils % Seg Neuts % (Manual) Lymphocytes % (Manual) Monocytes % (Manual) Eosinophils % (Manual) Basophils % (Manual) Nucleated RBC % Seg Neutrophils # Seg Neutrophils # Man Lymphocytes # (Manual) Monocytes # (Manual) Eosinophils # (Manual) Basophils # (Manual) PT INR Fibrinogen dRVVT Confirm Interp Factor V Activity POC ABG pH POC ABG pCO2 POC ABG pO2 ABG pO2 ABG HCO3 ABG Base Excess ABG Hemoglobin Oxyhemoglobin Sodium Potassium Chloride Carbon Dioxide BUN 57 H Creatinine 1.4 H Glucose 135 H POC Glucose 158 H 137 H Lactic Acid Calcium Ionized Calcium Phosphorus Magnesium Direct Bilirubin AST ALT Alkaline Phosphatase Lactate Dehydrogenase Troponin T C-Reactive Protein Total Protein Albumin Prealbumin Triglycerides Cholesterol LDL Cholesterol Direct HDL Cholesterol 25-OH Vitamin D Total PTH Intact Urine pH Urine WBC (Auto) Urine Creatinine Urine Total Protein Fluid Total Protein Vancomycin Trough Rheumatoid Factor Complement C4 Miscellaneous Test Crossmatch 12/14/16 12/14/16 12/15/16 17:52 23:27 04:00 WBC RBC Hgb Hct MCV MCH MCHC RDW Plt Count Lymph % (Auto) Harper % (Auto) Lymph # Harper # Baso # Seg Neutrophils % Seg Neuts % (Manual) Lymphocytes % (Manual) Monocytes % (Manual) Eosinophils % (Manual) Basophils % (Manual) Nucleated RBC % Seg Neutrophils # Seg Neutrophils # Man Lymphocytes # (Manual) Monocytes # (Manual) Eosinophils # (Manual) Basophils # (Manual) PT INR Fibrinogen dRVVT Confirm Interp Factor V Activity POC ABG pH POC ABG pCO2 POC ABG pO2 ABG pO2 ABG HCO3 ABG Base Excess ABG Hemoglobin Oxyhemoglobin Sodium Potassium Chloride 97.9 L Carbon Dioxide BUN 75 H Creatinine 1.6 H Glucose 122 H POC Glucose 149 H 163 H Lactic Acid Calcium Ionized Calcium Phosphorus 5.20 H Magnesium Direct Bilirubin AST ALT Alkaline Phosphatase Lactate Dehydrogenase Troponin T C-Reactive Protein Total Protein Albumin Prealbumin Triglycerides Cholesterol LDL Cholesterol Direct HDL Cholesterol 25-OH Vitamin D Total PTH Intact Urine pH Urine WBC (Auto) Urine Creatinine Urine Total Protein Fluid Total Protein Vancomycin Trough Rheumatoid Factor Complement C4 Miscellaneous Test Crossmatch 12/15/16 12/15/16 12/15/16 05:50 11:24 17:01 WBC RBC Hgb Hct MCV MCH MCHC RDW Plt Count Lymph % (Auto) Harper % (Auto) Lymph # Harper # Baso # Seg Neutrophils % Seg Neuts % (Manual) Lymphocytes % (Manual) Monocytes % (Manual) Eosinophils % (Manual) Basophils % (Manual) Nucleated RBC % Seg Neutrophils # Seg Neutrophils # Man Lymphocytes # (Manual) Monocytes # (Manual) Eosinophils # (Manual) Basophils # (Manual) PT INR Fibrinogen dRVVT Confirm Interp Factor V Activity POC ABG pH POC ABG pCO2 POC ABG pO2 ABG pO2 ABG HCO3 ABG Base Excess ABG Hemoglobin Oxyhemoglobin Sodium Potassium Chloride Carbon Dioxide BUN Creatinine Glucose POC Glucose 150 H 146 H 167 H Lactic Acid Calcium Ionized Calcium Phosphorus Magnesium Direct Bilirubin AST ALT Alkaline Phosphatase Lactate Dehydrogenase Troponin T C-Reactive Protein Total Protein Albumin Prealbumin Triglycerides Cholesterol LDL Cholesterol Direct HDL Cholesterol 25-OH Vitamin D Total PTH Intact Urine pH Urine WBC (Auto) Urine Creatinine Urine Total Protein Fluid Total Protein Vancomycin Trough Rheumatoid Factor Complement C4 Miscellaneous Test Crossmatch 12/15/16 12/16/16 12/16/16 23:34 05:25 11:24 WBC RBC Hgb Hct MCV MCH MCHC RDW Plt Count Lymph % (Auto) Harper % (Auto) Lymph # Harper # Baso # Seg Neutrophils % Seg Neuts % (Manual) Lymphocytes % (Manual) Monocytes % (Manual) Eosinophils % (Manual) Basophils % (Manual) Nucleated RBC % Seg Neutrophils # Seg Neutrophils # Man Lymphocytes # (Manual) Monocytes # (Manual) Eosinophils # (Manual) Basophils # (Manual) PT INR Fibrinogen dRVVT Confirm Interp Factor V Activity POC ABG pH POC ABG pCO2 POC ABG pO2 ABG pO2 ABG HCO3 ABG Base Excess ABG Hemoglobin Oxyhemoglobin Sodium Potassium Chloride Carbon Dioxide BUN Creatinine Glucose POC Glucose 127 H 139 H 165 H Lactic Acid Calcium Ionized Calcium Phosphorus Magnesium Direct Bilirubin AST ALT Alkaline Phosphatase Lactate Dehydrogenase Troponin T C-Reactive Protein Total Protein Albumin Prealbumin Triglycerides Cholesterol LDL Cholesterol Direct HDL Cholesterol 25-OH Vitamin D Total PTH Intact Urine pH Urine WBC (Auto) Urine Creatinine Urine Total Protein Fluid Total Protein Vancomycin Trough Rheumatoid Factor Complement C4 Miscellaneous Test Crossmatch 12/16/16 12/16/16 12/16/16 15:30 16:25 17:31 WBC 17.8 H RBC 2.38 L Hgb 6.4 L Hct 20.3 L MCV MCH 27 L MCHC RDW 17.4 H Plt Count Lymph % (Auto) Harper % (Auto) Lymph # Harper # Baso # Seg Neutrophils % Seg Neuts % (Manual) Lymphocytes % (Manual) Monocytes % (Manual) 10.0 H Eosinophils % (Manual) Basophils % (Manual) Nucleated RBC % Seg Neutrophils # Seg Neutrophils # Man 8.5 H Lymphocytes # (Manual) Monocytes # (Manual) 1.8 H Eosinophils # (Manual) Basophils # (Manual) PT INR Fibrinogen dRVVT Confirm Interp Factor V Activity POC ABG pH POC ABG pCO2 POC ABG pO2 ABG pO2 ABG HCO3 ABG Base Excess ABG Hemoglobin Oxyhemoglobin Sodium Potassium Chloride Carbon Dioxide BUN Creatinine Glucose POC Glucose 176 H Lactic Acid Calcium Ionized Calcium Phosphorus Magnesium Direct Bilirubin AST ALT Alkaline Phosphatase Lactate Dehydrogenase Troponin T C-Reactive Protein Total Protein Albumin Prealbumin Triglycerides Cholesterol LDL Cholesterol Direct HDL Cholesterol 25-OH Vitamin D Total PTH Intact Urine pH Urine WBC (Auto) Urine Creatinine Urine Total Protein Fluid Total Protein Vancomycin Trough Rheumatoid Factor Complement C4 Miscellaneous Test Crossmatch See Detail 12/17/16 12/17/16 12/17/16 00:14 04:00 05:00 WBC 20.0 H RBC 2.99 L Hgb 8.5 L Hct 25.7 L MCV MCH MCHC RDW 17.2 H Plt Count Lymph % (Auto) Harper % (Auto) Lymph # Harper # Baso # Seg Neutrophils % Seg Neuts % (Manual) Lymphocytes % (Manual) Monocytes % (Manual) Eosinophils % (Manual) Basophils % (Manual) Nucleated RBC % Seg Neutrophils # Seg Neutrophils # Man Lymphocytes # (Manual) Monocytes # (Manual) Eosinophils # (Manual) Basophils # (Manual) PT INR Fibrinogen dRVVT Confirm Interp Factor V Activity POC ABG pH POC ABG pCO2 POC ABG pO2 ABG pO2 ABG HCO3 ABG Base Excess ABG Hemoglobin Oxyhemoglobin Sodium Potassium Chloride 97.7 L Carbon Dioxide BUN 73 H Creatinine 1.7 H Glucose 136 H POC Glucose 148 H Lactic Acid Calcium Ionized Calcium Phosphorus 2.20 L Magnesium 2.70 H Direct Bilirubin AST ALT Alkaline Phosphatase Lactate Dehydrogenase Troponin T C-Reactive Protein Total Protein Albumin Prealbumin Triglycerides Cholesterol LDL Cholesterol Direct HDL Cholesterol 25-OH Vitamin D Total PTH Intact Urine pH Urine WBC (Auto) Urine Creatinine Urine Total Protein Fluid Total Protein Vancomycin Trough Rheumatoid Factor Complement C4 Miscellaneous Test Crossmatch 12/17/16 12/17/16 12/17/16 05:39 12:50 16:32 WBC RBC Hgb Hct MCV MCH MCHC RDW Plt Count Lymph % (Auto) Harper % (Auto) Lymph # Harper # Baso # Seg Neutrophils % Seg Neuts % (Manual) Lymphocytes % (Manual) Monocytes % (Manual) Eosinophils % (Manual) Basophils % (Manual) Nucleated RBC % Seg Neutrophils # Seg Neutrophils # Man Lymphocytes # (Manual) Monocytes # (Manual) Eosinophils # (Manual) Basophils # (Manual) PT INR Fibrinogen dRVVT Confirm Interp Factor V Activity POC ABG pH POC ABG pCO2 POC ABG pO2 ABG pO2 ABG HCO3 ABG Base Excess ABG Hemoglobin Oxyhemoglobin Sodium Potassium Chloride Carbon Dioxide BUN Creatinine Glucose POC Glucose 162 H 146 H 169 H Lactic Acid Calcium Ionized Calcium Phosphorus Magnesium Direct Bilirubin AST ALT Alkaline Phosphatase Lactate Dehydrogenase Troponin T C-Reactive Protein Total Protein Albumin Prealbumin Triglycerides Cholesterol LDL Cholesterol Direct HDL Cholesterol 25-OH Vitamin D Total PTH Intact Urine pH Urine WBC (Auto) Urine Creatinine Urine Total Protein Fluid Total Protein Vancomycin Trough Rheumatoid Factor Complement C4 Miscellaneous Test Crossmatch 12/17/16 12/18/16 12/18/16 23:57 05:00 05:32 WBC RBC Hgb Hct MCV MCH MCHC RDW Plt Count Lymph % (Auto) Harper % (Auto) Lymph # Harper # Baso # Seg Neutrophils % Seg Neuts % (Manual) Lymphocytes % (Manual) Monocytes % (Manual) Eosinophils % (Manual) Basophils % (Manual) Nucleated RBC % Seg Neutrophils # Seg Neutrophils # Man Lymphocytes # (Manual) Monocytes # (Manual) Eosinophils # (Manual) Basophils # (Manual) PT INR Fibrinogen dRVVT Confirm Interp Factor V Activity POC ABG pH POC ABG pCO2 POC ABG pO2 ABG pO2 ABG HCO3 ABG Base Excess ABG Hemoglobin Oxyhemoglobin Sodium Potassium Chloride 97.0 L Carbon Dioxide BUN 63 H Creatinine 1.4 H Glucose 174 H POC Glucose 145 H 201 H Lactic Acid Calcium Ionized Calcium Phosphorus 1.70 L D Magnesium Direct Bilirubin AST ALT Alkaline Phosphatase 257 H Lactate Dehydrogenase Troponin T C-Reactive Protein Total Protein 5.9 L Albumin 1.8 L Prealbumin Triglycerides Cholesterol LDL Cholesterol Direct HDL Cholesterol 25-OH Vitamin D Total PTH Intact Urine pH Urine WBC (Auto) Urine Creatinine Urine Total Protein Fluid Total Protein Vancomycin Trough Rheumatoid Factor Complement C4 Miscellaneous Test Crossmatch 12/18/16 12/18/16 12/18/16 11:43 16:52 23:52 WBC RBC Hgb Hct MCV MCH MCHC RDW Plt Count Lymph % (Auto) Harper % (Auto) Lymph # Harper # Baso # Seg Neutrophils % Seg Neuts % (Manual) Lymphocytes % (Manual) Monocytes % (Manual) Eosinophils % (Manual) Basophils % (Manual) Nucleated RBC % Seg Neutrophils # Seg Neutrophils # Man Lymphocytes # (Manual) Monocytes # (Manual) Eosinophils # (Manual) Basophils # (Manual) PT INR Fibrinogen dRVVT Confirm Interp Factor V Activity POC ABG pH POC ABG pCO2 POC ABG pO2 ABG pO2 ABG HCO3 ABG Base Excess ABG Hemoglobin Oxyhemoglobin Sodium Potassium Chloride Carbon Dioxide BUN Creatinine Glucose POC Glucose 177 H 110 H 162 H Lactic Acid Calcium Ionized Calcium Phosphorus Magnesium Direct Bilirubin AST ALT Alkaline Phosphatase Lactate Dehydrogenase Troponin T C-Reactive Protein Total Protein Albumin Prealbumin Triglycerides Cholesterol LDL Cholesterol Direct HDL Cholesterol 25-OH Vitamin D Total PTH Intact Urine pH Urine WBC (Auto) Urine Creatinine Urine Total Protein Fluid Total Protein Vancomycin Trough Rheumatoid Factor Complement C4 Miscellaneous Test Crossmatch 12/19/16 12/19/16 12/19/16 05:02 05:24 09:30 WBC 20.1 H RBC 2.73 L Hgb 7.6 L Hct 23.6 L MCV MCH MCHC RDW 17.6 H Plt Count Lymph % (Auto) Harper % (Auto) Lymph # Harper # Baso # Seg Neutrophils % Seg Neuts % (Manual) Lymphocytes % (Manual) 13.0 L Monocytes % (Manual) Eosinophils % (Manual) Basophils % (Manual) Nucleated RBC % 1.0 H Seg Neutrophils # Seg Neutrophils # Man 12.9 H Lymphocytes # (Manual) Monocytes # (Manual) 1.4 H Eosinophils # (Manual) Basophils # (Manual) 0.2 H PT INR Fibrinogen dRVVT Confirm Interp Factor V Activity POC ABG pH POC ABG pCO2 POC ABG pO2 ABG pO2 ABG HCO3 ABG Base Excess ABG Hemoglobin Oxyhemoglobin Sodium Potassium Chloride 97.8 L Carbon Dioxide BUN 84 H Creatinine 1.6 H Glucose 133 H POC Glucose 134 H Lactic Acid Calcium Ionized Calcium Phosphorus Magnesium Direct Bilirubin AST ALT Alkaline Phosphatase Lactate Dehydrogenase Troponin T C-Reactive Protein Total Protein Albumin Prealbumin Triglycerides Cholesterol LDL Cholesterol Direct HDL Cholesterol 25-OH Vitamin D Total PTH Intact Urine pH Urine WBC (Auto) Urine Creatinine Urine Total Protein Fluid Total Protein Vancomycin Trough Rheumatoid Factor Complement C4 Miscellaneous Test Crossmatch 12/19/16 12/19/16 12/19/16 09:36 11:12 18:29 WBC RBC Hgb Hct MCV MCH MCHC RDW Plt Count Lymph % (Auto) Harper % (Auto) Lymph # Harper # Baso # Seg Neutrophils % Seg Neuts % (Manual) Lymphocytes % (Manual) Monocytes % (Manual) Eosinophils % (Manual) Basophils % (Manual) Nucleated RBC % Seg Neutrophils # Seg Neutrophils # Man Lymphocytes # (Manual) Monocytes # (Manual) Eosinophils # (Manual) Basophils # (Manual) PT INR Fibrinogen dRVVT Confirm Interp Factor V Activity POC ABG pH 7.503 H POC ABG pCO2 30.1 L POC ABG pO2 ABG pO2 ABG HCO3 ABG Base Excess ABG Hemoglobin Oxyhemoglobin Sodium Potassium Chloride Carbon Dioxide BUN Creatinine Glucose POC Glucose 138 H 156 H Lactic Acid Calcium Ionized Calcium Phosphorus Magnesium Direct Bilirubin AST ALT Alkaline Phosphatase Lactate Dehydrogenase Troponin T C-Reactive Protein Total Protein Albumin Prealbumin Triglycerides Cholesterol LDL Cholesterol Direct HDL Cholesterol 25-OH Vitamin D Total PTH Intact Urine pH Urine WBC (Auto) Urine Creatinine Urine Total Protein Fluid Total Protein Vancomycin Trough Rheumatoid Factor Complement C4 Miscellaneous Test Crossmatch 12/20/16 12/20/16 12/20/16 00:03 06:17 07:07 WBC RBC Hgb Hct MCV MCH MCHC RDW Plt Count Lymph % (Auto) Harper % (Auto) Lymph # Harper # Baso # Seg Neutrophils % Seg Neuts % (Manual) Lymphocytes % (Manual) Monocytes % (Manual) Eosinophils % (Manual) Basophils % (Manual) Nucleated RBC % Seg Neutrophils # Seg Neutrophils # Man Lymphocytes # (Manual) Monocytes # (Manual) Eosinophils # (Manual) Basophils # (Manual) PT INR Fibrinogen dRVVT Confirm Interp Factor V Activity POC ABG pH POC ABG pCO2 POC ABG pO2 ABG pO2 ABG HCO3 ABG Base Excess ABG Hemoglobin Oxyhemoglobin Sodium Potassium Chloride 97.1 L Carbon Dioxide 20 L BUN 97 H Creatinine 1.8 H Glucose 153 H POC Glucose 152 H 175 H Lactic Acid Calcium Ionized Calcium Phosphorus Magnesium Direct Bilirubin AST ALT Alkaline Phosphatase Lactate Dehydrogenase Troponin T C-Reactive Protein Total Protein Albumin Prealbumin Triglycerides Cholesterol LDL Cholesterol Direct HDL Cholesterol 25-OH Vitamin D Total PTH Intact Urine pH Urine WBC (Auto) Urine Creatinine Urine Total Protein Fluid Total Protein Vancomycin Trough Rheumatoid Factor Complement C4 Miscellaneous Test Crossmatch 12/20/16 12/20/16 12/20/16 12:00 17:42 23:53 WBC RBC Hgb Hct MCV MCH MCHC RDW Plt Count Lymph % (Auto) Harper % (Auto) Lymph # Harper # Baso # Seg Neutrophils % Seg Neuts % (Manual) Lymphocytes % (Manual) Monocytes % (Manual) Eosinophils % (Manual) Basophils % (Manual) Nucleated RBC % Seg Neutrophils # Seg Neutrophils # Man Lymphocytes # (Manual) Monocytes # (Manual) Eosinophils # (Manual) Basophils # (Manual) PT INR Fibrinogen dRVVT Confirm Interp Factor V Activity POC ABG pH POC ABG pCO2 POC ABG pO2 ABG pO2 ABG HCO3 ABG Base Excess ABG Hemoglobin Oxyhemoglobin Sodium Potassium Chloride Carbon Dioxide BUN Creatinine Glucose POC Glucose 141 H 156 H 132 H Lactic Acid Calcium Ionized Calcium Phosphorus Magnesium Direct Bilirubin AST ALT Alkaline Phosphatase Lactate Dehydrogenase Troponin T C-Reactive Protein Total Protein Albumin Prealbumin Triglycerides Cholesterol LDL Cholesterol Direct HDL Cholesterol 25-OH Vitamin D Total PTH Intact Urine pH Urine WBC (Auto) Urine Creatinine Urine Total Protein Fluid Total Protein Vancomycin Trough Rheumatoid Factor Complement C4 Miscellaneous Test Crossmatch 12/21/16 12/21/16 12/21/16 05:49 08:50 12:19 WBC RBC Hgb Hct MCV MCH MCHC RDW Plt Count Lymph % (Auto) Harper % (Auto) Lymph # Harper # Baso # Seg Neutrophils % Seg Neuts % (Manual) Lymphocytes % (Manual) Monocytes % (Manual) Eosinophils % (Manual) Basophils % (Manual) Nucleated RBC % Seg Neutrophils # Seg Neutrophils # Man Lymphocytes # (Manual) Monocytes # (Manual) Eosinophils # (Manual) Basophils # (Manual) PT INR Fibrinogen dRVVT Confirm Interp Factor V Activity POC ABG pH POC ABG pCO2 POC ABG pO2 ABG pO2 ABG HCO3 ABG Base Excess ABG Hemoglobin Oxyhemoglobin Sodium Potassium 5.2 H D Chloride Carbon Dioxide BUN 63 H Creatinine Glucose 122 H POC Glucose 132 H 136 H Lactic Acid Calcium 8.3 L Ionized Calcium Phosphorus Magnesium Direct Bilirubin AST ALT Alkaline Phosphatase Lactate Dehydrogenase Troponin T C-Reactive Protein Total Protein Albumin Prealbumin Triglycerides Cholesterol LDL Cholesterol Direct HDL Cholesterol 25-OH Vitamin D Total PTH Intact Urine pH Urine WBC (Auto) Urine Creatinine Urine Total Protein Fluid Total Protein Vancomycin Trough Rheumatoid Factor Complement C4 Miscellaneous Test Crossmatch 12/21/16 12/21/16 12/22/16 17:22 23:58 05:49 WBC RBC Hgb Hct MCV MCH MCHC RDW Plt Count Lymph % (Auto) Harper % (Auto) Lymph # Harper # Baso # Seg Neutrophils % Seg Neuts % (Manual) Lymphocytes % (Manual) Monocytes % (Manual) Eosinophils % (Manual) Basophils % (Manual) Nucleated RBC % Seg Neutrophils # Seg Neutrophils # Man Lymphocytes # (Manual) Monocytes # (Manual) Eosinophils # (Manual) Basophils # (Manual) PT INR Fibrinogen dRVVT Confirm Interp Factor V Activity POC ABG pH POC ABG pCO2 POC ABG pO2 ABG pO2 ABG HCO3 ABG Base Excess ABG Hemoglobin Oxyhemoglobin Sodium Potassium Chloride Carbon Dioxide BUN Creatinine Glucose POC Glucose 135 H 149 H 140 H Lactic Acid Calcium Ionized Calcium Phosphorus Magnesium Direct Bilirubin AST ALT Alkaline Phosphatase Lactate Dehydrogenase Troponin T C-Reactive Protein Total Protein Albumin Prealbumin Triglycerides Cholesterol LDL Cholesterol Direct HDL Cholesterol 25-OH Vitamin D Total PTH Intact Urine pH Urine WBC (Auto) Urine Creatinine Urine Total Protein Fluid Total Protein Vancomycin Trough Rheumatoid Factor Complement C4 Miscellaneous Test Crossmatch 12/22/16 12/22/16 12/22/16 06:10 11:17 17:31 WBC RBC Hgb Hct MCV MCH MCHC RDW Plt Count Lymph % (Auto) Harper % (Auto) Lymph # Harper # Baso # Seg Neutrophils % Seg Neuts % (Manual) Lymphocytes % (Manual) Monocytes % (Manual) Eosinophils % (Manual) Basophils % (Manual) Nucleated RBC % Seg Neutrophils # Seg Neutrophils # Man Lymphocytes # (Manual) Monocytes # (Manual) Eosinophils # (Manual) Basophils # (Manual) PT INR Fibrinogen dRVVT Confirm Interp Factor V Activity POC ABG pH POC ABG pCO2 POC ABG pO2 ABG pO2 ABG HCO3 ABG Base Excess ABG Hemoglobin Oxyhemoglobin Sodium Potassium Chloride Carbon Dioxide BUN 76 H Creatinine 1.5 H Glucose 241 H POC Glucose 193 H 148 H Lactic Acid Calcium Ionized Calcium Phosphorus Magnesium Direct Bilirubin AST ALT Alkaline Phosphatase Lactate Dehydrogenase Troponin T C-Reactive Protein Total Protein Albumin Prealbumin Triglycerides Cholesterol LDL Cholesterol Direct HDL Cholesterol 25-OH Vitamin D Total PTH Intact Urine pH Urine WBC (Auto) Urine Creatinine Urine Total Protein Fluid Total Protein Vancomycin Trough Rheumatoid Factor Complement C4 Miscellaneous Test Crossmatch 12/22/16 12/23/16 12/23/16 23:58 05:00 05:26 WBC RBC Hgb Hct MCV MCH MCHC RDW Plt Count Lymph % (Auto) Harper % (Auto) Lymph # Harper # Baso # Seg Neutrophils % Seg Neuts % (Manual) Lymphocytes % (Manual) Monocytes % (Manual) Eosinophils % (Manual) Basophils % (Manual) Nucleated RBC % Seg Neutrophils # Seg Neutrophils # Man Lymphocytes # (Manual) Monocytes # (Manual) Eosinophils # (Manual) Basophils # (Manual) PT INR Fibrinogen dRVVT Confirm Interp Factor V Activity POC ABG pH POC ABG pCO2 POC ABG pO2 ABG pO2 ABG HCO3 ABG Base Excess ABG Hemoglobin Oxyhemoglobin Sodium Potassium Chloride Carbon Dioxide BUN 49 H Creatinine Glucose 143 H POC Glucose 165 H 154 H Lactic Acid Calcium 8.2 L Ionized Calcium Phosphorus Magnesium 1.60 L Direct Bilirubin AST ALT Alkaline Phosphatase Lactate Dehydrogenase Troponin T C-Reactive Protein Total Protein Albumin Prealbumin Triglycerides Cholesterol LDL Cholesterol Direct HDL Cholesterol 25-OH Vitamin D Total PTH Intact Urine pH Urine WBC (Auto) Urine Creatinine Urine Total Protein Fluid Total Protein Vancomycin Trough Rheumatoid Factor Complement C4 Miscellaneous Test Crossmatch 12/23/16 12/23/16 12/24/16 12:35 17:01 00:01 WBC RBC Hgb Hct MCV MCH MCHC RDW Plt Count Lymph % (Auto) Harper % (Auto) Lymph # Harper # Baso # Seg Neutrophils % Seg Neuts % (Manual) Lymphocytes % (Manual) Monocytes % (Manual) Eosinophils % (Manual) Basophils % (Manual) Nucleated RBC % Seg Neutrophils # Seg Neutrophils # Man Lymphocytes # (Manual) Monocytes # (Manual) Eosinophils # (Manual) Basophils # (Manual) PT INR Fibrinogen dRVVT Confirm Interp Factor V Activity POC ABG pH POC ABG pCO2 POC ABG pO2 ABG pO2 ABG HCO3 ABG Base Excess ABG Hemoglobin Oxyhemoglobin Sodium Potassium Chloride Carbon Dioxide BUN Creatinine Glucose POC Glucose 164 H 149 H 135 H Lactic Acid Calcium Ionized Calcium Phosphorus Magnesium Direct Bilirubin AST ALT Alkaline Phosphatase Lactate Dehydrogenase Troponin T C-Reactive Protein Total Protein Albumin Prealbumin Triglycerides Cholesterol LDL Cholesterol Direct HDL Cholesterol 25-OH Vitamin D Total PTH Intact Urine pH Urine WBC (Auto) Urine Creatinine Urine Total Protein Fluid Total Protein Vancomycin Trough Rheumatoid Factor Complement C4 Miscellaneous Test Crossmatch 12/24/16 12/24/16 12/24/16 05:41 07:01 11:38 WBC RBC Hgb Hct MCV MCH MCHC RDW Plt Count Lymph % (Auto) Harper % (Auto) Lymph # Harper # Baso # Seg Neutrophils % Seg Neuts % (Manual) Lymphocytes % (Manual) Monocytes % (Manual) Eosinophils % (Manual) Basophils % (Manual) Nucleated RBC % Seg Neutrophils # Seg Neutrophils # Man Lymphocytes # (Manual) Monocytes # (Manual) Eosinophils # (Manual) Basophils # (Manual) PT INR Fibrinogen dRVVT Confirm Interp Factor V Activity POC ABG pH POC ABG pCO2 POC ABG pO2 ABG pO2 ABG HCO3 ABG Base Excess ABG Hemoglobin Oxyhemoglobin Sodium Potassium Chloride Carbon Dioxide BUN 72 H Creatinine 1.3 H Glucose 130 H POC Glucose 132 H 156 H Lactic Acid Calcium 8.2 L Ionized Calcium Phosphorus Magnesium Direct Bilirubin AST ALT Alkaline Phosphatase Lactate Dehydrogenase Troponin T C-Reactive Protein Total Protein Albumin Prealbumin Triglycerides Cholesterol LDL Cholesterol Direct HDL Cholesterol 25-OH Vitamin D Total PTH Intact Urine pH Urine WBC (Auto) Urine Creatinine Urine Total Protein Fluid Total Protein Vancomycin Trough Rheumatoid Factor Complement C4 Miscellaneous Test Crossmatch 12/24/16 12/25/1612/25/17 17:53 00:23 05:45 WBC RBC Hgb Hct MCV MCH MCHC RDW Plt Count Lymph % (Auto) Harper % (Auto) Lymph # Harper # Baso # Seg Neutrophils % Seg Neuts % (Manual) Lymphocytes % (Manual) Monocytes % (Manual) Eosinophils % (Manual) Basophils % (Manual) Nucleated RBC % Seg Neutrophils # Seg Neutrophils # Man Lymphocytes # (Manual) Monocytes # (Manual) Eosinophils # (Manual) Basophils # (Manual) PT INR Fibrinogen dRVVT Confirm Interp Factor V Activity POC ABG pH POC ABG pCO2 POC ABG pO2 ABG pO2 ABG HCO3 ABG Base Excess ABG Hemoglobin Oxyhemoglobin Sodium 146 H Potassium Chloride Carbon Dioxide BUN 51 H Creatinine Glucose 109 H POC Glucose 169 H 117 H Lactic Acid Calcium Ionized Calcium Phosphorus Magnesium Direct Bilirubin AST ALT Alkaline Phosphatase Lactate Dehydrogenase Troponin T C-Reactive Protein Total Protein Albumin Prealbumin Triglycerides Cholesterol LDL Cholesterol Direct HDL Cholesterol 25-OH Vitamin D Total PTH Intact Urine pH Urine WBC (Auto) Urine Creatinine Urine Total Protein Fluid Total Protein Vancomycin Trough Rheumatoid Factor Complement C4 Miscellaneous Test Crossmatch 12/25/16 12/25/16 12/25/16 06:43 11:29 17:14 WBC RBC Hgb Hct MCV MCH MCHC RDW Plt Count Lymph % (Auto) Harper % (Auto) Lymph # Harper # Baso # Seg Neutrophils % Seg Neuts % (Manual) Lymphocytes % (Manual) Monocytes % (Manual) Eosinophils % (Manual) Basophils % (Manual) Nucleated RBC % Seg Neutrophils # Seg Neutrophils # Man Lymphocytes # (Manual) Monocytes # (Manual) Eosinophils # (Manual) Basophils # (Manual) PT INR Fibrinogen dRVVT Confirm Interp Factor V Activity POC ABG pH POC ABG pCO2 POC ABG pO2 ABG pO2 ABG HCO3 ABG Base Excess ABG Hemoglobin Oxyhemoglobin Sodium Potassium Chloride Carbon Dioxide BUN Creatinine Glucose POC Glucose 117 H 128 H 120 H Lactic Acid Calcium Ionized Calcium Phosphorus Magnesium Direct Bilirubin AST ALT Alkaline Phosphatase Lactate Dehydrogenase Troponin T C-Reactive Protein Total Protein Albumin Prealbumin Triglycerides Cholesterol LDL Cholesterol Direct HDL Cholesterol 25-OH Vitamin D Total PTH Intact Urine pH Urine WBC (Auto) Urine Creatinine Urine Total Protein Fluid Total Protein Vancomycin Trough Rheumatoid Factor Complement C4 Miscellaneous Test Crossmatch 12/25/16 12/26/16 12/26/16 23:54 05:40 05:50 WBC 16.2 H RBC 2.32 L Hgb 6.2 L Hct 20.1 L MCV MCH 27 L MCHC RDW 18.6 H Plt Count Lymph % (Auto) Harper % (Auto) Lymph # Harper # Baso # Seg Neutrophils % Seg Neuts % (Manual) Lymphocytes % (Manual) Monocytes % (Manual) Eosinophils % (Manual) Basophils % (Manual) Nucleated RBC % Seg Neutrophils # Seg Neutrophils # Man Lymphocytes # (Manual) Monocytes # (Manual) Eosinophils # (Manual) Basophils # (Manual) PT INR Fibrinogen dRVVT Confirm Interp Factor V Activity POC ABG pH POC ABG pCO2 POC ABG pO2 ABG pO2 ABG HCO3 ABG Base Excess ABG Hemoglobin Oxyhemoglobin Sodium Potassium Chloride Carbon Dioxide BUN Creatinine Glucose POC Glucose 126 H 132 H Lactic Acid Calcium Ionized Calcium Phosphorus Magnesium Direct Bilirubin AST ALT Alkaline Phosphatase Lactate Dehydrogenase Troponin T C-Reactive Protein Total Protein Albumin Prealbumin Triglycerides Cholesterol LDL Cholesterol Direct HDL Cholesterol 25-OH Vitamin D Total PTH Intact Urine pH Urine WBC (Auto) Urine Creatinine Urine Total Protein Fluid Total Protein Vancomycin Trough Rheumatoid Factor Complement C4 Miscellaneous Test Crossmatch 12/26/16 12/26/16 12/26/16 05:50 12:17 12:33 WBC RBC Hgb Hct MCV MCH MCHC RDW Plt Count Lymph % (Auto) Harper % (Auto) Lymph # Harper # Baso # Seg Neutrophils % Seg Neuts % (Manual) Lymphocytes % (Manual) Monocytes % (Manual) Eosinophils % (Manual) Basophils % (Manual) Nucleated RBC % Seg Neutrophils # Seg Neutrophils # Man Lymphocytes # (Manual) Monocytes # (Manual) Eosinophils # (Manual) Basophils # (Manual) PT INR Fibrinogen dRVVT Confirm Interp Factor V Activity POC ABG pH POC ABG pCO2 POC ABG pO2 ABG pO2 ABG HCO3 ABG Base Excess ABG Hemoglobin Oxyhemoglobin Sodium Potassium Chloride Carbon Dioxide BUN 73 H Creatinine 1.3 H Glucose 113 H POC Glucose 117 H Lactic Acid Calcium Ionized Calcium Phosphorus Magnesium Direct Bilirubin AST ALT Alkaline Phosphatase Lactate Dehydrogenase Troponin T C-Reactive Protein Total Protein Albumin Prealbumin Triglycerides Cholesterol LDL Cholesterol Direct HDL Cholesterol 25-OH Vitamin D Total PTH Intact Urine pH Urine WBC (Auto) Urine Creatinine Urine Total Protein Fluid Total Protein Vancomycin Trough Rheumatoid Factor Complement C4 Miscellaneous Test Crossmatch See Detail 12/26/16 12/26/16 12/27/16 20:00 23:21 05:00 WBC RBC Hgb 8.4 L Hct 26.3 L D MCV MCH MCHC RDW Plt Count Lymph % (Auto) Harper % (Auto) Lymph # Harper # Baso # Seg Neutrophils % Seg Neuts % (Manual) Lymphocytes % (Manual) Monocytes % (Manual) Eosinophils % (Manual) Basophils % (Manual) Nucleated RBC % Seg Neutrophils # Seg Neutrophils # Man Lymphocytes # (Manual) Monocytes # (Manual) Eosinophils # (Manual) Basophils # (Manual) PT INR Fibrinogen dRVVT Confirm Interp Factor V Activity POC ABG pH POC ABG pCO2 POC ABG pO2 ABG pO2 ABG HCO3 ABG Base Excess ABG Hemoglobin Oxyhemoglobin Sodium Potassium Chloride Carbon Dioxide BUN 85 H Creatinine 1.6 H Glucose 118 H POC Glucose 124 H Lactic Acid Calcium Ionized Calcium Phosphorus 4.80 H Magnesium Direct Bilirubin AST ALT Alkaline Phosphatase Lactate Dehydrogenase Troponin T C-Reactive Protein Total Protein Albumin Prealbumin Triglycerides Cholesterol LDL Cholesterol Direct HDL Cholesterol 25-OH Vitamin D Total PTH Intact Urine pH Urine WBC (Auto) Urine Creatinine Urine Total Protein Fluid Total Protein Vancomycin Trough Rheumatoid Factor Complement C4 Miscellaneous Test Crossmatch 12/27/16 12/27/16 12/27/16 05:00 05:35 12:24 WBC RBC Hgb 7.6 L Hct 22.8 L MCV MCH MCHC RDW Plt Count Lymph % (Auto) Harper % (Auto) Lymph # Harper # Baso # Seg Neutrophils % Seg Neuts % (Manual) Lymphocytes % (Manual) Monocytes % (Manual) Eosinophils % (Manual) Basophils % (Manual) Nucleated RBC % Seg Neutrophils # Seg Neutrophils # Man Lymphocytes # (Manual) Monocytes # (Manual) Eosinophils # (Manual) Basophils # (Manual) PT INR Fibrinogen dRVVT Confirm Interp Factor V Activity POC ABG pH POC ABG pCO2 POC ABG pO2 ABG pO2 ABG HCO3 ABG Base Excess ABG Hemoglobin Oxyhemoglobin Sodium Potassium Chloride Carbon Dioxide BUN Creatinine Glucose POC Glucose 115 H 131 H Lactic Acid Calcium Ionized Calcium Phosphorus Magnesium Direct Bilirubin AST ALT Alkaline Phosphatase Lactate Dehydrogenase Troponin T C-Reactive Protein Total Protein Albumin Prealbumin Triglycerides Cholesterol LDL Cholesterol Direct HDL Cholesterol 25-OH Vitamin D Total PTH Intact Urine pH Urine WBC (Auto) Urine Creatinine Urine Total Protein Fluid Total Protein Vancomycin Trough Rheumatoid Factor Complement C4 Miscellaneous Test Crossmatch 12/27/16 12/28/16 12/28/16 17:16 00:18 04:00 WBC RBC Hgb Hct MCV MCH MCHC RDW Plt Count Lymph % (Auto) Harper % (Auto) Lymph # Harper # Baso # Seg Neutrophils % Seg Neuts % (Manual) Lymphocytes % (Manual) Monocytes % (Manual) Eosinophils % (Manual) Basophils % (Manual) Nucleated RBC % Seg Neutrophils # Seg Neutrophils # Man Lymphocytes # (Manual) Monocytes # (Manual) Eosinophils # (Manual) Basophils # (Manual) PT INR Fibrinogen dRVVT Confirm Interp Factor V Activity POC ABG pH POC ABG pCO2 POC ABG pO2 ABG pO2 ABG HCO3 ABG Base Excess ABG Hemoglobin Oxyhemoglobin Sodium Potassium 3.5 L Chloride Carbon Dioxide BUN 57 H Creatinine Glucose 118 H POC Glucose 136 H 120 H Lactic Acid Calcium 8.3 L Ionized Calcium Phosphorus Magnesium Direct Bilirubin AST ALT Alkaline Phosphatase Lactate Dehydrogenase Troponin T C-Reactive Protein Total Protein Albumin Prealbumin Triglycerides Cholesterol LDL Cholesterol Direct HDL Cholesterol 25-OH Vitamin D Total PTH Intact Urine pH Urine WBC (Auto) Urine Creatinine Urine Total Protein Fluid Total Protein Vancomycin Trough Rheumatoid Factor Complement C4 Miscellaneous Test Crossmatch 12/28/16 12/28/16 12/28/16 04:00 05:11 08:30 WBC 17.0 H RBC 2.58 L Hgb 7.1 L Hct 22.0 L MCV MCH MCHC RDW 17.6 H Plt Count Lymph % (Auto) 12.2 L Harper % (Auto) Lymph # Harper # 1.1 H Baso # Seg Neutrophils % 80.5 H Seg Neuts % (Manual) Lymphocytes % (Manual) Monocytes % (Manual) Eosinophils % (Manual) Basophils % (Manual) Nucleated RBC % Seg Neutrophils # 13.7 H Seg Neutrophils # Man Lymphocytes # (Manual) Monocytes # (Manual) Eosinophils # (Manual) Basophils # (Manual) PT 16.1 H INR 1.23 H Fibrinogen dRVVT Confirm Interp Factor V Activity POC ABG pH POC ABG pCO2 POC ABG pO2 ABG pO2 ABG HCO3 ABG Base Excess ABG Hemoglobin Oxyhemoglobin Sodium Potassium Chloride Carbon Dioxide BUN Creatinine Glucose POC Glucose 122 H Lactic Acid Calcium Ionized Calcium Phosphorus Magnesium Direct Bilirubin AST ALT Alkaline Phosphatase Lactate Dehydrogenase Troponin T C-Reactive Protein Total Protein Albumin Prealbumin Triglycerides Cholesterol LDL Cholesterol Direct HDL Cholesterol 25-OH Vitamin D Total PTH Intact Urine pH Urine WBC (Auto) Urine Creatinine Urine Total Protein Fluid Total Protein Vancomycin Trough Rheumatoid Factor Complement C4 Miscellaneous Test Crossmatch 12/28/16 12/28/16 12/28/16 12:27 16:32 23:46 WBC RBC Hgb Hct MCV MCH MCHC RDW Plt Count Lymph % (Auto) Harper % (Auto) Lymph # Harper # Baso # Seg Neutrophils % Seg Neuts % (Manual) Lymphocytes % (Manual) Monocytes % (Manual) Eosinophils % (Manual) Basophils % (Manual) Nucleated RBC % Seg Neutrophils # Seg Neutrophils # Man Lymphocytes # (Manual) Monocytes # (Manual) Eosinophils # (Manual) Basophils # (Manual) PT INR Fibrinogen dRVVT Confirm Interp Factor V Activity POC ABG pH POC ABG pCO2 POC ABG pO2 ABG pO2 ABG HCO3 ABG Base Excess ABG Hemoglobin Oxyhemoglobin Sodium Potassium Chloride Carbon Dioxide BUN Creatinine Glucose POC Glucose 127 H 117 H 108 H Lactic Acid Calcium Ionized Calcium Phosphorus Magnesium Direct Bilirubin AST ALT Alkaline Phosphatase Lactate Dehydrogenase Troponin T C-Reactive Protein Total Protein Albumin Prealbumin Triglycerides Cholesterol LDL Cholesterol Direct HDL Cholesterol 25-OH Vitamin D Total PTH Intact Urine pH Urine WBC (Auto) Urine Creatinine Urine Total Protein Fluid Total Protein Vancomycin Trough Rheumatoid Factor Complement C4 Miscellaneous Test Crossmatch 12/29/16 12/29/16 12/29/16 05:15 05:15 05:32 WBC RBC Hgb Hct MCV MCH MCHC RDW Plt Count Lymph % (Auto) Harper % (Auto) Lymph # Harper # Baso # Seg Neutrophils % Seg Neuts % (Manual) Lymphocytes % (Manual) Monocytes % (Manual) Eosinophils % (Manual) Basophils % (Manual) Nucleated RBC % Seg Neutrophils # Seg Neutrophils # Man Lymphocytes # (Manual) Monocytes # (Manual) Eosinophils # (Manual) Basophils # (Manual) PT INR Fibrinogen dRVVT Confirm Interp Factor V Activity POC ABG pH POC ABG pCO2 POC ABG pO2 ABG pO2 ABG HCO3 ABG Base Excess ABG Hemoglobin Oxyhemoglobin Sodium Potassium Chloride Carbon Dioxide BUN 74 H Creatinine 1.6 H Glucose 111 H POC Glucose 123 H Lactic Acid Calcium Ionized Calcium Phosphorus Magnesium Direct Bilirubin AST ALT Alkaline Phosphatase Lactate Dehydrogenase Troponin T C-Reactive Protein Total Protein Albumin Prealbumin 0.110 L Triglycerides Cholesterol LDL Cholesterol Direct HDL Cholesterol 25-OH Vitamin D Total PTH Intact Urine pH Urine WBC (Auto) Urine Creatinine Urine Total Protein Fluid Total Protein Vancomycin Trough Rheumatoid Factor Complement C4 Miscellaneous Test Crossmatch 11/11/0612/29/16 12/29/16 11:43 13:45 14:00 WBC 13.8 H RBC 2.26 L Hgb 6.3 L Hct 20.4 L MCV MCH MCHC RDW 18.3 H Plt Count Lymph % (Auto) Harper % (Auto) Lymph # Harper # 0.9 H Baso # Seg Neutrophils % 78.6 H Seg Neuts % (Manual) Lymphocytes % (Manual) Monocytes % (Manual) Eosinophils % (Manual) Basophils % (Manual) Nucleated RBC % Seg Neutrophils # 10.8 H Seg Neutrophils # Man Lymphocytes # (Manual) Monocytes # (Manual) Eosinophils # (Manual) Basophils # (Manual) PT INR Fibrinogen dRVVT Confirm Interp Factor V Activity POC ABG pH POC ABG pCO2 POC ABG pO2 ABG pO2 ABG HCO3 ABG Base Excess ABG Hemoglobin Oxyhemoglobin Sodium Potassium Chloride Carbon Dioxide BUN Creatinine Glucose POC Glucose 133 H Lactic Acid Calcium Ionized Calcium Phosphorus Magnesium Direct Bilirubin AST ALT Alkaline Phosphatase Lactate Dehydrogenase Troponin T C-Reactive Protein Total Protein Albumin Prealbumin Triglycerides Cholesterol LDL Cholesterol Direct HDL Cholesterol 25-OH Vitamin D Total PTH Intact Urine pH Urine WBC (Auto) Urine Creatinine Urine Total Protein Fluid Total Protein Vancomycin Trough Rheumatoid Factor Complement C4 Miscellaneous Test Crossmatch See Detail 12/29/16 12/29/16 12/29/16 17:03 23:15 23:22 WBC RBC Hgb 7.3 L Hct 22.3 L MCV MCH MCHC RDW Plt Count Lymph % (Auto) Harper % (Auto) Lymph # Harper # Baso # Seg Neutrophils % Seg Neuts % (Manual) Lymphocytes % (Manual) Monocytes % (Manual) Eosinophils % (Manual) Basophils % (Manual) Nucleated RBC % Seg Neutrophils # Seg Neutrophils # Man Lymphocytes # (Manual) Monocytes # (Manual) Eosinophils # (Manual) Basophils # (Manual) PT INR Fibrinogen dRVVT Confirm Interp Factor V Activity POC ABG pH POC ABG pCO2 POC ABG pO2 ABG pO2 ABG HCO3 ABG Base Excess ABG Hemoglobin Oxyhemoglobin Sodium Potassium Chloride Carbon Dioxide BUN Creatinine Glucose POC Glucose 139 H 120 H Lactic Acid Calcium Ionized Calcium Phosphorus Magnesium Direct Bilirubin AST ALT Alkaline Phosphatase Lactate Dehydrogenase Troponin T C-Reactive Protein Total Protein Albumin Prealbumin Triglycerides Cholesterol LDL Cholesterol Direct HDL Cholesterol 25-OH Vitamin D Total PTH Intact Urine pH Urine WBC (Auto) Urine Creatinine Urine Total Protein Fluid Total Protein Vancomycin Trough Rheumatoid Factor Complement C4 Miscellaneous Test Crossmatch 12/30/16 12/30/16 12/30/16 04:20 04:20 05:43 WBC 15.6 H RBC 2.81 L Hgb 8.0 L Hct 24.0 L MCV MCH MCHC RDW 16.9 H Plt Count Lymph % (Auto) Harper % (Auto) Lymph # Harper # 1.0 H Baso # Seg Neutrophils % 76.2 H Seg Neuts % (Manual) Lymphocytes % (Manual) Monocytes % (Manual) Eosinophils % (Manual) Basophils % (Manual) Nucleated RBC % Seg Neutrophils # 11.9 H Seg Neutrophils # Man Lymphocytes # (Manual) Monocytes # (Manual) Eosinophils # (Manual) Basophils # (Manual) PT INR Fibrinogen dRVVT Confirm Interp Factor V Activity POC ABG pH POC ABG pCO2 POC ABG pO2 ABG pO2 ABG HCO3 ABG Base Excess ABG Hemoglobin Oxyhemoglobin Sodium Potassium Chloride Carbon Dioxide BUN 87 H Creatinine 1.8 H Glucose 119 H POC Glucose 115 H Lactic Acid Calcium Ionized Calcium Phosphorus Magnesium Direct Bilirubin AST ALT Alkaline Phosphatase Lactate Dehydrogenase Troponin T C-Reactive Protein Total Protein Albumin Prealbumin Triglycerides Cholesterol LDL Cholesterol Direct HDL Cholesterol 25-OH Vitamin D Total PTH Intact Urine pH Urine WBC (Auto) Urine Creatinine Urine Total Protein Fluid Total Protein Vancomycin Trough Rheumatoid Factor Complement C4 Miscellaneous Test Crossmatch 12/30/16 12/30/16 12/31/16 17:27 23:21 04:00 WBC RBC Hgb Hct MCV MCH MCHC RDW Plt Count Lymph % (Auto) Harper % (Auto) Lymph # Harper # Baso # Seg Neutrophils % Seg Neuts % (Manual) Lymphocytes % (Manual) Monocytes % (Manual) Eosinophils % (Manual) Basophils % (Manual) Nucleated RBC % Seg Neutrophils # Seg Neutrophils # Man Lymphocytes # (Manual) Monocytes # (Manual) Eosinophils # (Manual) Basophils # (Manual) PT INR Fibrinogen dRVVT Confirm Interp Factor V Activity POC ABG pH POC ABG pCO2 POC ABG pO2 ABG pO2 ABG HCO3 ABG Base Excess ABG Hemoglobin Oxyhemoglobin Sodium Potassium Chloride Carbon Dioxide BUN 59 H Creatinine Glucose 298 H POC Glucose 144 H 125 H Lactic Acid Calcium Ionized Calcium Phosphorus Magnesium Direct Bilirubin AST ALT Alkaline Phosphatase Lactate Dehydrogenase Troponin T C-Reactive Protein Total Protein Albumin Prealbumin Triglycerides Cholesterol LDL Cholesterol Direct HDL Cholesterol 25-OH Vitamin D Total PTH Intact Urine pH Urine WBC (Auto) Urine Creatinine Urine Total Protein Fluid Total Protein Vancomycin Trough Rheumatoid Factor Complement C4 Miscellaneous Test Crossmatch 12/31/16 12/31/16 12/31/16 05:11 12:18 18:17 WBC RBC Hgb Hct MCV MCH MCHC RDW Plt Count Lymph % (Auto) Harper % (Auto) Lymph # Harper # Baso # Seg Neutrophils % Seg Neuts % (Manual) Lymphocytes % (Manual) Monocytes % (Manual) Eosinophils % (Manual) Basophils % (Manual) Nucleated RBC % Seg Neutrophils # Seg Neutrophils # Man Lymphocytes # (Manual) Monocytes # (Manual) Eosinophils # (Manual) Basophils # (Manual) PT INR Fibrinogen dRVVT Confirm Interp Factor V Activity POC ABG pH POC ABG pCO2 POC ABG pO2 ABG pO2 ABG HCO3 ABG Base Excess ABG Hemoglobin Oxyhemoglobin Sodium Potassium Chloride Carbon Dioxide BUN Creatinine Glucose POC Glucose 167 H 125 H 133 H Lactic Acid Calcium Ionized Calcium Phosphorus Magnesium Direct Bilirubin AST ALT Alkaline Phosphatase Lactate Dehydrogenase Troponin T C-Reactive Protein Total Protein Albumin Prealbumin Triglycerides Cholesterol LDL Cholesterol Direct HDL Cholesterol 25-OH Vitamin D Total PTH Intact Urine pH Urine WBC (Auto) Urine Creatinine Urine Total Protein Fluid Total Protein Vancomycin Trough Rheumatoid Factor Complement C4 Miscellaneous Test Crossmatch 12/31/16 01/01/17 01/01/17 23:55 05:00 05:12 WBC RBC Hgb Hct MCV MCH MCHC RDW Plt Count Lymph % (Auto) Harper % (Auto) Lymph # Harper # Baso # Seg Neutrophils % Seg Neuts % (Manual) Lymphocytes % (Manual) Monocytes % (Manual) Eosinophils % (Manual) Basophils % (Manual) Nucleated RBC % Seg Neutrophils # Seg Neutrophils # Man Lymphocytes # (Manual) Monocytes # (Manual) Eosinophils # (Manual) Basophils # (Manual) PT INR Fibrinogen dRVVT Confirm Interp Factor V Activity POC ABG pH POC ABG pCO2 POC ABG pO2 ABG pO2 ABG HCO3 ABG Base Excess ABG Hemoglobin Oxyhemoglobin Sodium Potassium Chloride Carbon Dioxide BUN 76 H Creatinine 1.5 H Glucose 109 H POC Glucose 129 H 129 H Lactic Acid Calcium Ionized Calcium Phosphorus Magnesium Direct Bilirubin AST ALT Alkaline Phosphatase 536 H Lactate Dehydrogenase Troponin T C-Reactive Protein Total Protein Albumin 1.5 L Prealbumin Triglycerides Cholesterol LDL Cholesterol Direct HDL Cholesterol 25-OH Vitamin D Total PTH Intact Urine pH Urine WBC (Auto) Urine Creatinine Urine Total Protein Fluid Total Protein Vancomycin Trough Rheumatoid Factor Complement C4 Miscellaneous Test Crossmatch 01/01/17 01/01/17 01/01/17 12:25 17:01 23:32 WBC RBC Hgb Hct MCV MCH MCHC RDW Plt Count Lymph % (Auto) Harper % (Auto) Lymph # Harper # Baso # Seg Neutrophils % Seg Neuts % (Manual) Lymphocytes % (Manual) Monocytes % (Manual) Eosinophils % (Manual) Basophils % (Manual) Nucleated RBC % Seg Neutrophils # Seg Neutrophils # Man Lymphocytes # (Manual) Monocytes # (Manual) Eosinophils # (Manual) Basophils # (Manual) PT INR Fibrinogen dRVVT Confirm Interp Factor V Activity POC ABG pH POC ABG pCO2 POC ABG pO2 ABG pO2 ABG HCO3 ABG Base Excess ABG Hemoglobin Oxyhemoglobin Sodium Potassium Chloride Carbon Dioxide BUN Creatinine Glucose POC Glucose 140 H 142 H 112 H Lactic Acid Calcium Ionized Calcium Phosphorus Magnesium Direct Bilirubin AST ALT Alkaline Phosphatase Lactate Dehydrogenase Troponin T C-Reactive Protein Total Protein Albumin Prealbumin Triglycerides Cholesterol LDL Cholesterol Direct HDL Cholesterol 25-OH Vitamin D Total PTH Intact Urine pH Urine WBC (Auto) Urine Creatinine Urine Total Protein Fluid Total Protein Vancomycin Trough Rheumatoid Factor Complement C4 Miscellaneous Test Crossmatch 01/02/17 01/02/17 01/02/17 04:56 06:00 11:37 WBC RBC Hgb Hct MCV MCH MCHC RDW Plt Count Lymph % (Auto) Harper % (Auto) Lymph # Harper # Baso # Seg Neutrophils % Seg Neuts % (Manual) Lymphocytes % (Manual) Monocytes % (Manual) Eosinophils % (Manual) Basophils % (Manual) Nucleated RBC % Seg Neutrophils # Seg Neutrophils # Man Lymphocytes # (Manual) Monocytes # (Manual) Eosinophils # (Manual) Basophils # (Manual) PT INR Fibrinogen dRVVT Confirm Interp Factor V Activity POC ABG pH POC ABG pCO2 POC ABG pO2 ABG pO2 ABG HCO3 ABG Base Excess ABG Hemoglobin Oxyhemoglobin Sodium Potassium Chloride Carbon Dioxide BUN 88 H Creatinine 1.7 H Glucose 113 H POC Glucose 136 H 200 H Lactic Acid Calcium Ionized Calcium Phosphorus Magnesium Direct Bilirubin AST ALT Alkaline Phosphatase Lactate Dehydrogenase Troponin T C-Reactive Protein Total Protein Albumin Prealbumin Triglycerides Cholesterol LDL Cholesterol Direct HDL Cholesterol 25-OH Vitamin D Total PTH Intact Urine pH Urine WBC (Auto) Urine Creatinine Urine Total Protein Fluid Total Protein Vancomycin Trough Rheumatoid Factor Complement C4 Miscellaneous Test Crossmatch 01/02/17 01/02/17 01/03/17 17:42 22:52 04:54 WBC RBC Hgb Hct MCV MCH MCHC RDW Plt Count Lymph % (Auto) Harper % (Auto) Lymph # Harper # Baso # Seg Neutrophils % Seg Neuts % (Manual) Lymphocytes % (Manual) Monocytes % (Manual) Eosinophils % (Manual) Basophils % (Manual) Nucleated RBC % Seg Neutrophils # Seg Neutrophils # Man Lymphocytes # (Manual) Monocytes # (Manual) Eosinophils # (Manual) Basophils # (Manual) PT INR Fibrinogen dRVVT Confirm Interp Factor V Activity POC ABG pH POC ABG pCO2 POC ABG pO2 ABG pO2 ABG HCO3 ABG Base Excess ABG Hemoglobin Oxyhemoglobin Sodium Potassium Chloride Carbon Dioxide BUN Creatinine Glucose POC Glucose 112 H 133 H 111 H Lactic Acid Calcium Ionized Calcium Phosphorus Magnesium Direct Bilirubin AST ALT Alkaline Phosphatase Lactate Dehydrogenase Troponin T C-Reactive Protein Total Protein Albumin Prealbumin Triglycerides Cholesterol LDL Cholesterol Direct HDL Cholesterol 25-OH Vitamin D Total PTH Intact Urine pH Urine WBC (Auto) Urine Creatinine Urine Total Protein Fluid Total Protein Vancomycin Trough Rheumatoid Factor Complement C4 Miscellaneous Test Crossmatch 01/03/17 01/03/17 01/03/17 05:00 05:00 14:02 WBC 11.2 H RBC 2.56 L Hgb 7.2 L Hct 22.3 L MCV MCH MCHC RDW 17.3 H Plt Count Lymph % (Auto) Harper % (Auto) 10.0 H Lymph # Harper # 1.1 H Baso # Seg Neutrophils % 70.5 H Seg Neuts % (Manual) Lymphocytes % (Manual) Monocytes % (Manual) Eosinophils % (Manual) Basophils % (Manual) Nucleated RBC % Seg Neutrophils # 7.9 H Seg Neutrophils # Man Lymphocytes # (Manual) Monocytes # (Manual) Eosinophils # (Manual) Basophils # (Manual) PT INR Fibrinogen dRVVT Confirm Interp Factor V Activity POC ABG pH POC ABG pCO2 POC ABG pO2 ABG pO2 ABG HCO3 ABG Base Excess ABG Hemoglobin Oxyhemoglobin Sodium Potassium Chloride Carbon Dioxide BUN 60 H Creatinine 1.3 H Glucose 110 H POC Glucose 119 H Lactic Acid Calcium Ionized Calcium Phosphorus Magnesium Direct Bilirubin AST ALT Alkaline Phosphatase Lactate Dehydrogenase Troponin T C-Reactive Protein Total Protein Albumin Prealbumin Triglycerides Cholesterol LDL Cholesterol Direct HDL Cholesterol 25-OH Vitamin D Total PTH Intact Urine pH Urine WBC (Auto) Urine Creatinine Urine Total Protein Fluid Total Protein Vancomycin Trough Rheumatoid Factor Complement C4 Miscellaneous Test Crossmatch 01/03/17 01/03/17 01/04/17 18:13 23:40 05:57 WBC RBC Hgb Hct MCV MCH MCHC RDW Plt Count Lymph % (Auto) Harper % (Auto) Lymph # Harper # Baso # Seg Neutrophils % Seg Neuts % (Manual) Lymphocytes % (Manual) Monocytes % (Manual) Eosinophils % (Manual) Basophils % (Manual) Nucleated RBC % Seg Neutrophils # Seg Neutrophils # Man Lymphocytes # (Manual) Monocytes # (Manual) Eosinophils # (Manual) Basophils # (Manual) PT INR Fibrinogen dRVVT Confirm Interp Factor V Activity POC ABG pH POC ABG pCO2 POC ABG pO2 ABG pO2 ABG HCO3 ABG Base Excess ABG Hemoglobin Oxyhemoglobin Sodium Potassium Chloride Carbon Dioxide BUN Creatinine Glucose POC Glucose 107 H 129 H 111 H Lactic Acid Calcium Ionized Calcium Phosphorus Magnesium Direct Bilirubin AST ALT Alkaline Phosphatase Lactate Dehydrogenase Troponin T C-Reactive Protein Total Protein Albumin Prealbumin Triglycerides Cholesterol LDL Cholesterol Direct HDL Cholesterol 25-OH Vitamin D Total PTH Intact Urine pH Urine WBC (Auto) Urine Creatinine Urine Total Protein Fluid Total Protein Vancomycin Trough Rheumatoid Factor Complement C4 Miscellaneous Test Crossmatch 01/04/17 01/04/17 01/04/17 12:46 15:27 17:11 WBC RBC Hgb Hct MCV MCH MCHC RDW Plt Count Lymph % (Auto) Harper % (Auto) Lymph # Harper # Baso # Seg Neutrophils % Seg Neuts % (Manual) Lymphocytes % (Manual) Monocytes % (Manual) Eosinophils % (Manual) Basophils % (Manual) Nucleated RBC % Seg Neutrophils # Seg Neutrophils # Man Lymphocytes # (Manual) Monocytes # (Manual) Eosinophils # (Manual) Basophils # (Manual) PT INR Fibrinogen dRVVT Confirm Interp Factor V Activity POC ABG pH POC ABG pCO2 POC ABG pO2 ABG pO2 ABG HCO3 ABG Base Excess ABG Hemoglobin Oxyhemoglobin Sodium Potassium Chloride Carbon Dioxide BUN 43 H Creatinine Glucose 124 H POC Glucose 159 H 125 H Lactic Acid Calcium 8.0 L Ionized Calcium Phosphorus 2.10 L Magnesium Direct Bilirubin AST ALT Alkaline Phosphatase Lactate Dehydrogenase Troponin T C-Reactive Protein Total Protein Albumin Prealbumin Triglycerides Cholesterol LDL Cholesterol Direct HDL Cholesterol 25-OH Vitamin D Total PTH Intact Urine pH Urine WBC (Auto) Urine Creatinine Urine Total Protein Fluid Total Protein Vancomycin Trough Rheumatoid Factor Complement C4 Miscellaneous Test Crossmatch 01/04/17 01/05/17 01/05/17 23:31 04:00 05:46 WBC RBC Hgb Hct MCV MCH MCHC RDW Plt Count Lymph % (Auto) Harper % (Auto) Lymph # Harper # Baso # Seg Neutrophils % Seg Neuts % (Manual) Lymphocytes % (Manual) Monocytes % (Manual) Eosinophils % (Manual) Basophils % (Manual) Nucleated RBC % Seg Neutrophils # Seg Neutrophils # Man Lymphocytes # (Manual) Monocytes # (Manual) Eosinophils # (Manual) Basophils # (Manual) PT INR Fibrinogen dRVVT Confirm Interp Factor V Activity POC ABG pH POC ABG pCO2 POC ABG pO2 ABG pO2 ABG HCO3 ABG Base Excess ABG Hemoglobin Oxyhemoglobin Sodium Potassium Chloride Carbon Dioxide BUN 52 H Creatinine 1.3 H Glucose 113 H POC Glucose 123 H 118 H Lactic Acid Calcium Ionized Calcium Phosphorus 2.40 L Magnesium Direct Bilirubin AST ALT Alkaline Phosphatase Lactate Dehydrogenase Troponin T C-Reactive Protein Total Protein Albumin Prealbumin Triglycerides Cholesterol LDL Cholesterol Direct HDL Cholesterol 25-OH Vitamin D Total PTH Intact Urine pH Urine WBC (Auto) Urine Creatinine Urine Total Protein Fluid Total Protein Vancomycin Trough Rheumatoid Factor Complement C4 Miscellaneous Test Crossmatch 01/05/17 01/05/17 01/05/17 11:41 17:48 23:27 WBC RBC Hgb Hct MCV MCH MCHC RDW Plt Count Lymph % (Auto) Harper % (Auto) Lymph # Harper # Baso # Seg Neutrophils % Seg Neuts % (Manual) Lymphocytes % (Manual) Monocytes % (Manual) Eosinophils % (Manual) Basophils % (Manual) Nucleated RBC % Seg Neutrophils # Seg Neutrophils # Man Lymphocytes # (Manual) Monocytes # (Manual) Eosinophils # (Manual) Basophils # (Manual) PT INR Fibrinogen dRVVT Confirm Interp Factor V Activity POC ABG pH POC ABG pCO2 POC ABG pO2 ABG pO2 ABG HCO3 ABG Base Excess ABG Hemoglobin Oxyhemoglobin Sodium Potassium Chloride Carbon Dioxide BUN Creatinine Glucose POC Glucose 163 H 142 H 155 H Lactic Acid Calcium Ionized Calcium Phosphorus Magnesium Direct Bilirubin AST ALT Alkaline Phosphatase Lactate Dehydrogenase Troponin T C-Reactive Protein Total Protein Albumin Prealbumin Triglycerides Cholesterol LDL Cholesterol Direct HDL Cholesterol 25-OH Vitamin D Total PTH Intact Urine pH Urine WBC (Auto) Urine Creatinine Urine Total Protein Fluid Total Protein Vancomycin Trough Rheumatoid Factor Complement C4 Miscellaneous Test Crossmatch 01/06/17 01/06/1701/06/17 05:20 07:35 11:18 WBC RBC Hgb Hct MCV MCH MCHC RDW Plt Count Lymph % (Auto) Harper % (Auto) Lymph # Harper # Baso # Seg Neutrophils % Seg Neuts % (Manual) Lymphocytes % (Manual) Monocytes % (Manual) Eosinophils % (Manual) Basophils % (Manual) Nucleated RBC % Seg Neutrophils # Seg Neutrophils # Man Lymphocytes # (Manual) Monocytes # (Manual) Eosinophils # (Manual) Basophils # (Manual) PT INR Fibrinogen dRVVT Confirm Interp Factor V Activity POC ABG pH POC ABG pCO2 POC ABG pO2 ABG pO2 ABG HCO3 ABG Base Excess ABG Hemoglobin Oxyhemoglobin Sodium Potassium Chloride Carbon Dioxide BUN 74 H Creatinine 1.6 H Glucose 135 H POC Glucose 108 H 149 H Lactic Acid Calcium Ionized Calcium Phosphorus Magnesium Direct Bilirubin AST ALT Alkaline Phosphatase Lactate Dehydrogenase Troponin T C-Reactive Protein Total Protein Albumin Prealbumin Triglycerides Cholesterol LDL Cholesterol Direct HDL Cholesterol 25-OH Vitamin D Total PTH Intact Urine pH Urine WBC (Auto) Urine Creatinine Urine Total Protein Fluid Total Protein Vancomycin Trough Rheumatoid Factor Complement C4 Miscellaneous Test Crossmatch 01/06/17 01/07/17 01/07/17 17:17 00:23 05:31 WBC RBC Hgb Hct MCV MCH MCHC RDW Plt Count Lymph % (Auto) Harper % (Auto) Lymph # Harper # Baso # Seg Neutrophils % Seg Neuts % (Manual) Lymphocytes % (Manual) Monocytes % (Manual) Eosinophils % (Manual) Basophils % (Manual) Nucleated RBC % Seg Neutrophils # Seg Neutrophils # Man Lymphocytes # (Manual) Monocytes # (Manual) Eosinophils # (Manual) Basophils # (Manual) PT INR Fibrinogen dRVVT Confirm Interp Factor V Activity POC ABG pH POC ABG pCO2 POC ABG pO2 ABG pO2 ABG HCO3 ABG Base Excess ABG Hemoglobin Oxyhemoglobin Sodium Potassium Chloride Carbon Dioxide BUN Creatinine Glucose POC Glucose 146 H 165 H 153 H Lactic Acid Calcium Ionized Calcium Phosphorus Magnesium Direct Bilirubin AST ALT Alkaline Phosphatase Lactate Dehydrogenase Troponin T C-Reactive Protein Total Protein Albumin Prealbumin Triglycerides Cholesterol LDL Cholesterol Direct HDL Cholesterol 25-OH Vitamin D Total PTH Intact Urine pH Urine WBC (Auto) Urine Creatinine Urine Total Protein Fluid Total Protein Vancomycin Trough Rheumatoid Factor Complement C4 Miscellaneous Test Crossmatch 01/07/17 01/07/17 01/07/17 06:00 11:39 17:11 WBC RBC Hgb Hct MCV MCH MCHC RDW Plt Count Lymph % (Auto) Harper % (Auto) Lymph # Harper # Baso # Seg Neutrophils % Seg Neuts % (Manual) Lymphocytes % (Manual) Monocytes % (Manual) Eosinophils % (Manual) Basophils % (Manual) Nucleated RBC % Seg Neutrophils # Seg Neutrophils # Man Lymphocytes # (Manual) Monocytes # (Manual) Eosinophils # (Manual) Basophils # (Manual) PT INR Fibrinogen dRVVT Confirm Interp Factor V Activity POC ABG pH POC ABG pCO2 POC ABG pO2 ABG pO2 ABG HCO3 ABG Base Excess ABG Hemoglobin Oxyhemoglobin Sodium Potassium Chloride Carbon Dioxide BUN 42 H Creatinine Glucose 175 H POC Glucose 163 H 163 H Lactic Acid Calcium Ionized Calcium Phosphorus 2.40 L D Magnesium Direct Bilirubin AST ALT Alkaline Phosphatase Lactate Dehydrogenase Troponin T C-Reactive Protein Total Protein Albumin Prealbumin Triglycerides Cholesterol LDL Cholesterol Direct HDL Cholesterol 25-OH Vitamin D Total PTH Intact Urine pH Urine WBC (Auto) Urine Creatinine Urine Total Protein Fluid Total Protein Vancomycin Trough Rheumatoid Factor Complement C4 Miscellaneous Test Crossmatch 01/07/17 01/08/17 01/08/17 23:40 05:00 05:00 WBC 27.4 H RBC 2.27 L Hgb 6.1 L Hct 20.4 L MCV MCH 27 L MCHC RDW 17.8 H Plt Count Lymph % (Auto) Harper % (Auto) Lymph # Harper # Baso # Seg Neutrophils % Seg Neuts % (Manual) Lymphocytes % (Manual) Monocytes % (Manual) Eosinophils % (Manual) Basophils % (Manual) Nucleated RBC % Seg Neutrophils # Seg Neutrophils # Man Lymphocytes # (Manual) Monocytes # (Manual) Eosinophils # (Manual) Basophils # (Manual) PT INR Fibrinogen dRVVT Confirm Interp Factor V Activity POC ABG pH POC ABG pCO2 POC ABG pO2 ABG pO2 ABG HCO3 ABG Base Excess ABG Hemoglobin Oxyhemoglobin Sodium Potassium Chloride Carbon Dioxide 16 L D BUN 62 H Creatinine 1.6 H D Glucose 103 H POC Glucose 135 H Lactic Acid Calcium Ionized Calcium Phosphorus Magnesium Direct Bilirubin AST ALT Alkaline Phosphatase Lactate Dehydrogenase Troponin T C-Reactive Protein Total Protein Albumin Prealbumin Triglycerides Cholesterol LDL Cholesterol Direct HDL Cholesterol 25-OH Vitamin D Total PTH Intact Urine pH Urine WBC (Auto) Urine Creatinine Urine Total Protein Fluid Total Protein Vancomycin Trough Rheumatoid Factor Complement C4 Miscellaneous Test Crossmatch 01/08/17 01/08/1717 05:25 10:37 10:37 WBC RBC Hgb Hct MCV MCH MCHC RDW Plt Count Lymph % (Auto) Harper % (Auto) Lymph # Harper # Baso # Seg Neutrophils % Seg Neuts % (Manual) Lymphocytes % (Manual) Monocytes % (Manual) Eosinophils % (Manual) Basophils % (Manual) Nucleated RBC % Seg Neutrophils # Seg Neutrophils # Man Lymphocytes # (Manual) Monocytes # (Manual) Eosinophils # (Manual) Basophils # (Manual) PT INR Fibrinogen dRVVT Confirm Interp Factor V Activity POC ABG pH POC ABG pCO2 POC ABG pO2 ABG pO2 ABG HCO3 ABG Base Excess ABG Hemoglobin Oxyhemoglobin Sodium Potassium Chloride Carbon Dioxide BUN Creatinine Glucose POC Glucose 106 H Lactic Acid Calcium Ionized Calcium Phosphorus Magnesium Direct Bilirubin AST ALT Alkaline Phosphatase Lactate Dehydrogenase Troponin T C-Reactive Protein 24.40 H Total Protein Albumin Prealbumin Triglycerides Cholesterol LDL Cholesterol Direct HDL Cholesterol 25-OH Vitamin D Total PTH Intact Urine pH Urine WBC (Auto) Urine Creatinine Urine Total Protein Fluid Total Protein Vancomycin Trough Rheumatoid Factor Complement C4 Miscellaneous Test Crossmatch See Detail 01/08/17 01/08/17 01/08/17 10:37 11:33 15:15 WBC RBC Hgb Hct MCV MCH MCHC RDW Plt Count Lymph % (Auto) Harper % (Auto) Lymph # Harper # Baso # Seg Neutrophils % Seg Neuts % (Manual) Lymphocytes % (Manual) Monocytes % (Manual) Eosinophils % (Manual) Basophils % (Manual) Nucleated RBC % Seg Neutrophils # Seg Neutrophils # Man Lymphocytes # (Manual) Monocytes # (Manual) Eosinophils # (Manual) Basophils # (Manual) PT INR Fibrinogen dRVVT Confirm Interp Factor V Activity POC ABG pH POC ABG pCO2 POC ABG pO2 ABG pO2 ABG HCO3 ABG Base Excess ABG Hemoglobin Oxyhemoglobin Sodium Potassium Chloride Carbon Dioxide BUN Creatinine Glucose POC Glucose 157 H Lactic Acid 9.70 H* 9.10 H* Calcium Ionized Calcium Phosphorus Magnesium Direct Bilirubin AST ALT Alkaline Phosphatase Lactate Dehydrogenase Troponin T C-Reactive Protein Total Protein Albumin Prealbumin Triglycerides Cholesterol LDL Cholesterol Direct HDL Cholesterol 25-OH Vitamin D Total PTH Intact Urine pH Urine WBC (Auto) Urine Creatinine Urine Total Protein Fluid Total Protein Vancomycin Trough Rheumatoid Factor Complement C4 Miscellaneous Test Crossmatch 01/08/17 01/08/17 01/09/17 17:19 23:12 04:40 WBC RBC Hgb Hct MCV MCH MCHC RDW Plt Count Lymph % (Auto) Harper % (Auto) Lymph # Harper # Baso # Seg Neutrophils % Seg Neuts % (Manual) Lymphocytes % (Manual) Monocytes % (Manual) Eosinophils % (Manual) Basophils % (Manual) Nucleated RBC % Seg Neutrophils # Seg Neutrophils # Man Lymphocytes # (Manual) Monocytes # (Manual) Eosinophils # (Manual) Basophils # (Manual) PT INR Fibrinogen dRVVT Confirm Interp Factor V Activity POC ABG pH POC ABG pCO2 POC ABG pO2 ABG pO2 ABG HCO3 ABG Base Excess ABG Hemoglobin Oxyhemoglobin Sodium 147 H Potassium Chloride Carbon Dioxide BUN 82 H Creatinine 1.8 H Glucose 137 H POC Glucose 164 H 157 H Lactic Acid Calcium Ionized Calcium Phosphorus Magnesium Direct Bilirubin AST ALT Alkaline Phosphatase Lactate Dehydrogenase Troponin T C-Reactive Protein Total Protein Albumin Prealbumin Triglycerides Cholesterol LDL Cholesterol Direct HDL Cholesterol 25-OH Vitamin D Total PTH Intact Urine pH Urine WBC (Auto) Urine Creatinine Urine Total Protein Fluid Total Protein Vancomycin Trough Rheumatoid Factor Complement C4 Miscellaneous Test Crossmatch 01/09/17 01/09/17 01/09/17 05:42 08:22 10:57 WBC RBC Hgb Hct MCV MCH MCHC RDW Plt Count Lymph % (Auto) Harper % (Auto) Lymph # Harper # Baso # Seg Neutrophils % Seg Neuts % (Manual) Lymphocytes % (Manual) Monocytes % (Manual) Eosinophils % (Manual) Basophils % (Manual) Nucleated RBC % Seg Neutrophils # Seg Neutrophils # Man Lymphocytes # (Manual) Monocytes # (Manual) Eosinophils # (Manual) Basophils # (Manual) PT INR Fibrinogen dRVVT Confirm Interp Factor V Activity POC ABG pH POC ABG pCO2 POC ABG pO2 ABG pO2 ABG HCO3 ABG Base Excess ABG Hemoglobin Oxyhemoglobin Sodium Potassium Chloride Carbon Dioxide BUN Creatinine Glucose POC Glucose 156 H 122 H Lactic Acid 2.30 H* Calcium Ionized Calcium Phosphorus Magnesium Direct Bilirubin AST ALT Alkaline Phosphatase Lactate Dehydrogenase Troponin T C-Reactive Protein Total Protein Albumin Prealbumin Triglycerides Cholesterol LDL Cholesterol Direct HDL Cholesterol 25-OH Vitamin D Total PTH Intact Urine pH Urine WBC (Auto) Urine Creatinine Urine Total Protein Fluid Total Protein Vancomycin Trough Rheumatoid Factor Complement C4 Miscellaneous Test Crossmatch 01/09/17 01/09/17 01/09/17 13:30 17:14 18:45 WBC RBC Hgb Hct MCV MCH MCHC RDW Plt Count Lymph % (Auto) Harper % (Auto) Lymph # Harper # Baso # Seg Neutrophils % Seg Neuts % (Manual) Lymphocytes % (Manual) Monocytes % (Manual) Eosinophils % (Manual) Basophils % (Manual) Nucleated RBC % Seg Neutrophils # Seg Neutrophils # Man Lymphocytes # (Manual) Monocytes # (Manual) Eosinophils # (Manual) Basophils # (Manual) PT INR Fibrinogen dRVVT Confirm Interp Factor V Activity POC ABG pH POC ABG pCO2 POC ABG pO2 ABG pO2 ABG HCO3 ABG Base Excess ABG Hemoglobin Oxyhemoglobin Sodium Potassium Chloride Carbon Dioxide BUN Creatinine Glucose POC Glucose 127 H Lactic Acid Calcium Ionized Calcium Phosphorus Magnesium Direct Bilirubin AST ALT Alkaline Phosphatase Lactate Dehydrogenase Troponin T C-Reactive Protein 24.70 H Total Protein Albumin Prealbumin Triglycerides Cholesterol LDL Cholesterol Direct HDL Cholesterol 25-OH Vitamin D Total PTH Intact Urine pH Urine WBC (Auto) Urine Creatinine Urine Total Protein Fluid Total Protein Vancomycin Trough Rheumatoid Factor Complement C4 Miscellaneous Test Flexitest 1 H Crossmatch 01/10/17 01/10/17 01/10/17 01:21 04:00 04:00 WBC 18.1 H RBC 3.22 L Hgb 8.8 L Hct 27.0 L D MCV MCH 27 L MCHC RDW 17.0 H Plt Count Lymph % (Auto) Harper % (Auto) Lymph # Harper # Baso # Seg Neutrophils % Seg Neuts % (Manual) Lymphocytes % (Manual) Monocytes % (Manual) Eosinophils % (Manual) Basophils % (Manual) Nucleated RBC % Seg Neutrophils # Seg Neutrophils # Man Lymphocytes # (Manual) Monocytes # (Manual) Eosinophils # (Manual) Basophils # (Manual) PT INR Fibrinogen dRVVT Confirm Interp Factor V Activity POC ABG pH POC ABG pCO2 POC ABG pO2 ABG pO2 ABG HCO3 ABG Base Excess ABG Hemoglobin Oxyhemoglobin Sodium Potassium Chloride Carbon Dioxide BUN 59 H Creatinine 1.3 H Glucose 122 H POC Glucose 160 H Lactic Acid Calcium Ionized Calcium Phosphorus Magnesium Direct Bilirubin AST ALT Alkaline Phosphatase Lactate Dehydrogenase Troponin T C-Reactive Protein Total Protein Albumin Prealbumin Triglycerides Cholesterol LDL Cholesterol Direct HDL Cholesterol 25-OH Vitamin D Total PTH Intact Urine pH Urine WBC (Auto) Urine Creatinine Urine Total Protein Fluid Total Protein Vancomycin Trough Rheumatoid Factor Complement C4 Miscellaneous Test Crossmatch 01/10/17 01/10/17 01/10/17 05:36 12:14 17:55 WBC RBC Hgb Hct MCV MCH MCHC RDW Plt Count Lymph % (Auto) Harper % (Auto) Lymph # Harper # Baso # Seg Neutrophils % Seg Neuts % (Manual) Lymphocytes % (Manual) Monocytes % (Manual) Eosinophils % (Manual) Basophils % (Manual) Nucleated RBC % Seg Neutrophils # Seg Neutrophils # Man Lymphocytes # (Manual) Monocytes # (Manual) Eosinophils # (Manual) Basophils # (Manual) PT INR Fibrinogen dRVVT Confirm Interp Factor V Activity POC ABG pH POC ABG pCO2 POC ABG pO2 ABG pO2 ABG HCO3 ABG Base Excess ABG Hemoglobin Oxyhemoglobin Sodium Potassium Chloride Carbon Dioxide BUN Creatinine Glucose POC Glucose 163 H 120 H 144 H Lactic Acid Calcium Ionized Calcium Phosphorus Magnesium Direct Bilirubin AST ALT Alkaline Phosphatase Lactate Dehydrogenase Troponin T C-Reactive Protein Total Protein Albumin Prealbumin Triglycerides Cholesterol LDL Cholesterol Direct HDL Cholesterol 25-OH Vitamin D Total PTH Intact Urine pH Urine WBC (Auto) Urine Creatinine Urine Total Protein Fluid Total Protein Vancomycin Trough Rheumatoid Factor Complement C4 Miscellaneous Test Crossmatch 01/11/17 01/11/17 01/11/17 00:09 04:00 04:00 WBC 15.8 H RBC 3.04 L Hgb 8.2 L Hct 25.5 L MCV MCH 27 L MCHC RDW 17.3 H Plt Count Lymph % (Auto) Harper % (Auto) Lymph # Harper # Baso # Seg Neutrophils % Seg Neuts % (Manual) Lymphocytes % (Manual) Monocytes % (Manual) Eosinophils % (Manual) Basophils % (Manual) Nucleated RBC % Seg Neutrophils # Seg Neutrophils # Man Lymphocytes # (Manual) Monocytes # (Manual) Eosinophils # (Manual) Basophils # (Manual) PT INR Fibrinogen dRVVT Confirm Interp Factor V Activity POC ABG pH POC ABG pCO2 POC ABG pO2 ABG pO2 ABG HCO3 ABG Base Excess ABG Hemoglobin Oxyhemoglobin Sodium Potassium Chloride Carbon Dioxide BUN 78 H Creatinine 1.6 H Glucose 109 H POC Glucose 122 H Lactic Acid Calcium Ionized Calcium Phosphorus Magnesium Direct Bilirubin AST ALT Alkaline Phosphatase Lactate Dehydrogenase Troponin T C-Reactive Protein Total Protein Albumin Prealbumin Triglycerides Cholesterol LDL Cholesterol Direct HDL Cholesterol 25-OH Vitamin D Total PTH Intact Urine pH Urine WBC (Auto) Urine Creatinine Urine Total Protein Fluid Total Protein Vancomycin Trough Rheumatoid Factor Complement C4 Miscellaneous Test Crossmatch 01/11/17 01/11/17 01/11/17 12:46 18:23 23:42 WBC RBC Hgb Hct MCV MCH MCHC RDW Plt Count Lymph % (Auto) Harper % (Auto) Lymph # Harper # Baso # Seg Neutrophils % Seg Neuts % (Manual) Lymphocytes % (Manual) Monocytes % (Manual) Eosinophils % (Manual) Basophils % (Manual) Nucleated RBC % Seg Neutrophils # Seg Neutrophils # Man Lymphocytes # (Manual) Monocytes # (Manual) Eosinophils # (Manual) Basophils # (Manual) PT INR Fibrinogen dRVVT Confirm Interp Factor V Activity POC ABG pH POC ABG pCO2 POC ABG pO2 ABG pO2 ABG HCO3 ABG Base Excess ABG Hemoglobin Oxyhemoglobin Sodium Potassium Chloride Carbon Dioxide BUN Creatinine Glucose POC Glucose 148 H 125 H 124 H Lactic Acid Calcium Ionized Calcium Phosphorus Magnesium Direct Bilirubin AST ALT Alkaline Phosphatase Lactate Dehydrogenase Troponin T C-Reactive Protein Total Protein Albumin Prealbumin Triglycerides Cholesterol LDL Cholesterol Direct HDL Cholesterol 25-OH Vitamin D Total PTH Intact Urine pH Urine WBC (Auto) Urine Creatinine Urine Total Protein Fluid Total Protein Vancomycin Trough Rheumatoid Factor Complement C4 Miscellaneous Test Crossmatch 01/12/17 01/12/17 01/12/17 04:30 04:30 05:47 WBC 15.8 H RBC 3.31 L Hgb 8.9 L Hct 27.9 L MCV MCH 27 L MCHC RDW 17.4 H Plt Count Lymph % (Auto) Harper % (Auto) Lymph # Harper # Baso # Seg Neutrophils % Seg Neuts % (Manual) Lymphocytes % (Manual) Monocytes % (Manual) Eosinophils % (Manual) Basophils % (Manual) Nucleated RBC % Seg Neutrophils # Seg Neutrophils # Man Lymphocytes # (Manual) Monocytes # (Manual) Eosinophils # (Manual) Basophils # (Manual) PT INR Fibrinogen dRVVT Confirm Interp Factor V Activity POC ABG pH POC ABG pCO2 POC ABG pO2 ABG pO2 ABG HCO3 ABG Base Excess ABG Hemoglobin Oxyhemoglobin Sodium Potassium Chloride Carbon Dioxide BUN 57 H Creatinine Glucose 121 H POC Glucose 110 H Lactic Acid Calcium Ionized Calcium Phosphorus 2.10 L Magnesium Direct Bilirubin AST ALT Alkaline Phosphatase Lactate Dehydrogenase Troponin T C-Reactive Protein Total Protein Albumin Prealbumin Triglycerides Cholesterol LDL Cholesterol Direct HDL Cholesterol 25-OH Vitamin D Total PTH Intact Urine pH Urine WBC (Auto) Urine Creatinine Urine Total Protein Fluid Total Protein Vancomycin Trough Rheumatoid Factor Complement C4 Miscellaneous Test Crossmatch 01/12/17 01/12/17 01/12/17 11:35 17:45 23:14 WBC RBC Hgb Hct MCV MCH MCHC RDW Plt Count Lymph % (Auto) Harper % (Auto) Lymph # Harper # Baso # Seg Neutrophils % Seg Neuts % (Manual) Lymphocytes % (Manual) Monocytes % (Manual) Eosinophils % (Manual) Basophils % (Manual) Nucleated RBC % Seg Neutrophils # Seg Neutrophils # Man Lymphocytes # (Manual) Monocytes # (Manual) Eosinophils # (Manual) Basophils # (Manual) PT INR Fibrinogen dRVVT Confirm Interp Factor V Activity POC ABG pH POC ABG pCO2 POC ABG pO2 ABG pO2 ABG HCO3 ABG Base Excess ABG Hemoglobin Oxyhemoglobin Sodium Potassium Chloride Carbon Dioxide BUN Creatinine Glucose POC Glucose 146 H 117 H 123 H Lactic Acid Calcium Ionized Calcium Phosphorus Magnesium Direct Bilirubin AST ALT Alkaline Phosphatase Lactate Dehydrogenase Troponin T C-Reactive Protein Total Protein Albumin Prealbumin Triglycerides Cholesterol LDL Cholesterol Direct HDL Cholesterol 25-OH Vitamin D Total PTH Intact Urine pH Urine WBC (Auto) Urine Creatinine Urine Total Protein Fluid Total Protein Vancomycin Trough Rheumatoid Factor Complement C4 Miscellaneous Test Crossmatch 01/13/17 01/13/17 01/13/17 05:32 06:00 12:10 WBC RBC Hgb Hct MCV MCH MCHC RDW Plt Count Lymph % (Auto) Harper % (Auto) Lymph # Harper # Baso # Seg Neutrophils % Seg Neuts % (Manual) Lymphocytes % (Manual) Monocytes % (Manual) Eosinophils % (Manual) Basophils % (Manual) Nucleated RBC % Seg Neutrophils # Seg Neutrophils # Man Lymphocytes # (Manual) Monocytes # (Manual) Eosinophils # (Manual) Basophils # (Manual) PT INR Fibrinogen dRVVT Confirm Interp Factor V Activity POC ABG pH POC ABG pCO2 POC ABG pO2 ABG pO2 ABG HCO3 ABG Base Excess ABG Hemoglobin Oxyhemoglobin Sodium Potassium Chloride Carbon Dioxide BUN 80 H Creatinine 1.4 H Glucose 106 H POC Glucose 106 H Lactic Acid Calcium Ionized Calcium Phosphorus Magnesium Direct Bilirubin AST ALT Alkaline Phosphatase Lactate Dehydrogenase Troponin T C-Reactive Protein Total Protein Albumin Prealbumin Triglycerides Cholesterol LDL Cholesterol Direct HDL Cholesterol 25-OH Vitamin D Total PTH Intact Urine pH Urine WBC (Auto) Urine Creatinine Urine Total Protein Fluid Total Protein 3.0 L Vancomycin Trough Rheumatoid Factor Complement C4 Miscellaneous Test Crossmatch 01/13/17 01/13/17 01/13/17 12:17 15:50 17:30 WBC RBC Hgb Hct MCV MCH MCHC RDW Plt Count Lymph % (Auto) Harper % (Auto) Lymph # Harper # Baso # Seg Neutrophils % Seg Neuts % (Manual) Lymphocytes % (Manual) Monocytes % (Manual) Eosinophils % (Manual) Basophils % (Manual) Nucleated RBC % Seg Neutrophils # Seg Neutrophils # Man Lymphocytes # (Manual) Monocytes # (Manual) Eosinophils # (Manual) Basophils # (Manual) PT 15.4 H INR 1.16 H Fibrinogen dRVVT Confirm Interp Factor V Activity POC ABG pH POC ABG pCO2 POC ABG pO2 ABG pO2 ABG HCO3 ABG Base Excess ABG Hemoglobin Oxyhemoglobin Sodium Potassium Chloride Carbon Dioxide BUN Creatinine Glucose POC Glucose 168 H 110 H Lactic Acid Calcium Ionized Calcium Phosphorus Magnesium Direct Bilirubin AST ALT Alkaline Phosphatase Lactate Dehydrogenase Troponin T C-Reactive Protein Total Protein Albumin Prealbumin Triglycerides Cholesterol LDL Cholesterol Direct HDL Cholesterol 25-OH Vitamin D Total PTH Intact Urine pH Urine WBC (Auto) Urine Creatinine Urine Total Protein Fluid Total Protein Vancomycin Trough Rheumatoid Factor Complement C4 Miscellaneous Test Crossmatch 01/13/17 01/14/17 01/14/17 23:42 05:24 05:30 WBC RBC Hgb Hct MCV MCH MCHC RDW Plt Count Lymph % (Auto) Harper % (Auto) Lymph # Harper # Baso # Seg Neutrophils % Seg Neuts % (Manual) Lymphocytes % (Manual) Monocytes % (Manual) Eosinophils % (Manual) Basophils % (Manual) Nucleated RBC % Seg Neutrophils # Seg Neutrophils # Man Lymphocytes # (Manual) Monocytes # (Manual) Eosinophils # (Manual) Basophils # (Manual) PT INR Fibrinogen dRVVT Confirm Interp Factor V Activity POC ABG pH POC ABG pCO2 POC ABG pO2 ABG pO2 ABG HCO3 ABG Base Excess ABG Hemoglobin Oxyhemoglobin Sodium Potassium Chloride Carbon Dioxide BUN 58 H Creatinine Glucose 114 H POC Glucose 155 H 121 H Lactic Acid Calcium Ionized Calcium Phosphorus Magnesium Direct Bilirubin AST ALT Alkaline Phosphatase Lactate Dehydrogenase Troponin T C-Reactive Protein Total Protein Albumin Prealbumin Triglycerides Cholesterol LDL Cholesterol Direct HDL Cholesterol 25-OH Vitamin D Total PTH Intact Urine pH Urine WBC (Auto) Urine Creatinine Urine Total Protein Fluid Total Protein Vancomycin Trough Rheumatoid Factor Complement C4 Miscellaneous Test Crossmatch 01/14/17 01/14/17 01/15/17 12:48 17:36 00:15 WBC RBC Hgb Hct MCV MCH MCHC RDW Plt Count Lymph % (Auto) Harper % (Auto) Lymph # Harper # Baso # Seg Neutrophils % Seg Neuts % (Manual) Lymphocytes % (Manual) Monocytes % (Manual) Eosinophils % (Manual) Basophils % (Manual) Nucleated RBC % Seg Neutrophils # Seg Neutrophils # Man Lymphocytes # (Manual) Monocytes # (Manual) Eosinophils # (Manual) Basophils # (Manual) PT INR Fibrinogen dRVVT Confirm Interp Factor V Activity POC ABG pH POC ABG pCO2 POC ABG pO2 ABG pO2 ABG HCO3 ABG Base Excess ABG Hemoglobin Oxyhemoglobin Sodium Potassium Chloride Carbon Dioxide BUN Creatinine Glucose POC Glucose 130 H 135 H 132 H Lactic Acid Calcium Ionized Calcium Phosphorus Magnesium Direct Bilirubin AST ALT Alkaline Phosphatase Lactate Dehydrogenase Troponin T C-Reactive Protein Total Protein Albumin Prealbumin Triglycerides Cholesterol LDL Cholesterol Direct HDL Cholesterol 25-OH Vitamin D Total PTH Intact Urine pH Urine WBC (Auto) Urine Creatinine Urine Total Protein Fluid Total Protein Vancomycin Trough Rheumatoid Factor Complement C4 Miscellaneous Test Crossmatch 01/15/17 01/15/17 01/15/17 05:01 11:55 12:45 WBC 16.2 H RBC 3.00 L Hgb 8.1 L Hct 25.4 L MCV MCH 27 L MCHC RDW 17.6 H Plt Count Lymph % (Auto) 11.7 L Harper % (Auto) 7.8 H Lymph # Harper # 1.3 H Baso # Seg Neutrophils % 80.1 H Seg Neuts % (Manual) Lymphocytes % (Manual) Monocytes % (Manual) Eosinophils % (Manual) Basophils % (Manual) Nucleated RBC % Seg Neutrophils # 13.0 H Seg Neutrophils # Man Lymphocytes # (Manual) Monocytes # (Manual) Eosinophils # (Manual) Basophils # (Manual) PT INR Fibrinogen dRVVT Confirm Interp Factor V Activity POC ABG pH POC ABG pCO2 POC ABG pO2 ABG pO2 ABG HCO3 ABG Base Excess ABG Hemoglobin Oxyhemoglobin Sodium Potassium Chloride Carbon Dioxide BUN Creatinine Glucose POC Glucose 126 H 125 H Lactic Acid Calcium Ionized Calcium Phosphorus Magnesium Direct Bilirubin AST ALT Alkaline Phosphatase Lactate Dehydrogenase Troponin T C-Reactive Protein Total Protein Albumin Prealbumin Triglycerides Cholesterol LDL Cholesterol Direct HDL Cholesterol 25-OH Vitamin D Total PTH Intact Urine pH Urine WBC (Auto) Urine Creatinine Urine Total Protein Fluid Total Protein Vancomycin Trough Rheumatoid Factor Complement C4 Miscellaneous Test Crossmatch 01/15/17 01/15/17 01/15/17 12:45 17:31 23:39 WBC RBC Hgb Hct MCV MCH MCHC RDW Plt Count Lymph % (Auto) Harper % (Auto) Lymph # Harper # Baso # Seg Neutrophils % Seg Neuts % (Manual) Lymphocytes % (Manual) Monocytes % (Manual) Eosinophils % (Manual) Basophils % (Manual) Nucleated RBC % Seg Neutrophils # Seg Neutrophils # Man Lymphocytes # (Manual) Monocytes # (Manual) Eosinophils # (Manual) Basophils # (Manual) PT INR Fibrinogen dRVVT Confirm Interp Factor V Activity POC ABG pH POC ABG pCO2 POC ABG pO2 ABG pO2 ABG HCO3 ABG Base Excess ABG Hemoglobin Oxyhemoglobin Sodium 136 L Potassium Chloride Carbon Dioxide BUN 87 H Creatinine 1.7 H Glucose 108 H POC Glucose 129 H 112 H Lactic Acid Calcium Ionized Calcium Phosphorus Magnesium Direct Bilirubin AST ALT Alkaline Phosphatase Lactate Dehydrogenase Troponin T C-Reactive Protein Total Protein Albumin Prealbumin Triglycerides Cholesterol LDL Cholesterol Direct HDL Cholesterol 25-OH Vitamin D Total PTH Intact Urine pH Urine WBC (Auto) Urine Creatinine Urine Total Protein Fluid Total Protein Vancomycin Trough Rheumatoid Factor Complement C4 Miscellaneous Test Crossmatch 01/16/17 01/16/17 01/16/17 05:23 11:42 12:32 WBC RBC Hgb Hct MCV MCH MCHC RDW Plt Count Lymph % (Auto) Harper % (Auto) Lymph # Harper # Baso # Seg Neutrophils % Seg Neuts % (Manual) Lymphocytes % (Manual) Monocytes % (Manual) Eosinophils % (Manual) Basophils % (Manual) Nucleated RBC % Seg Neutrophils # Seg Neutrophils # Man Lymphocytes # (Manual) Monocytes # (Manual) Eosinophils # (Manual) Basophils # (Manual) PT INR Fibrinogen dRVVT Confirm Interp Factor V Activity POC ABG pH 7.499 H POC ABG pCO2 30.9 L POC ABG pO2 51 L ABG pO2 ABG HCO3 ABG Base Excess ABG Hemoglobin Oxyhemoglobin Sodium Potassium Chloride Carbon Dioxide BUN Creatinine Glucose POC Glucose 118 H 133 H Lactic Acid Calcium Ionized Calcium Phosphorus Magnesium Direct Bilirubin AST ALT Alkaline Phosphatase Lactate Dehydrogenase Troponin T C-Reactive Protein Total Protein Albumin Prealbumin Triglycerides Cholesterol LDL Cholesterol Direct HDL Cholesterol 25-OH Vitamin D Total PTH Intact Urine pH Urine WBC (Auto) Urine Creatinine Urine Total Protein Fluid Total Protein Vancomycin Trough Rheumatoid Factor Complement C4 Miscellaneous Test Crossmatch 01/16/17 01/16/17 01/16/17 17:52 23:57 Unknown WBC RBC Hgb Hct MCV MCH MCHC RDW Plt Count Lymph % (Auto) Harper % (Auto) Lymph # Harper # Baso # Seg Neutrophils % Seg Neuts % (Manual) Lymphocytes % (Manual) Monocytes % (Manual) Eosinophils % (Manual) Basophils % (Manual) Nucleated RBC % Seg Neutrophils # Seg Neutrophils # Man Lymphocytes # (Manual) Monocytes # (Manual) Eosinophils # (Manual) Basophils # (Manual) PT INR Fibrinogen dRVVT Confirm Interp Factor V Activity POC ABG pH POC ABG pCO2 POC ABG pO2 ABG pO2 ABG HCO3 ABG Base Excess ABG Hemoglobin Oxyhemoglobin Sodium 135 L Potassium Chloride Carbon Dioxide BUN 101 H Creatinine 1.8 H Glucose 117 H POC Glucose 130 H 143 H Lactic Acid Calcium Ionized Calcium Phosphorus 5.80 H Magnesium Direct Bilirubin AST ALT Alkaline Phosphatase Lactate Dehydrogenase Troponin T C-Reactive Protein Total Protein Albumin Prealbumin Triglycerides Cholesterol LDL Cholesterol Direct HDL Cholesterol 25-OH Vitamin D Total PTH Intact Urine pH Urine WBC (Auto) Urine Creatinine Urine Total Protein Fluid Total Protein Vancomycin Trough Rheumatoid Factor Complement C4 Miscellaneous Test Crossmatch 01/17/17 01/17/17 01/17/17 05:30 05:46 11:49 WBC RBC Hgb Hct MCV MCH MCHC RDW Plt Count Lymph % (Auto) Harper % (Auto) Lymph # Harper # Baso # Seg Neutrophils % Seg Neuts % (Manual) Lymphocytes % (Manual) Monocytes % (Manual) Eosinophils % (Manual) Basophils % (Manual) Nucleated RBC % Seg Neutrophils # Seg Neutrophils # Man Lymphocytes # (Manual) Monocytes # (Manual) Eosinophils # (Manual) Basophils # (Manual) PT INR Fibrinogen dRVVT Confirm Interp Factor V Activity POC ABG pH POC ABG pCO2 POC ABG pO2 ABG pO2 ABG HCO3 ABG Base Excess ABG Hemoglobin Oxyhemoglobin Sodium 134 L Potassium Chloride 95.8 L Carbon Dioxide BUN 66 H Creatinine 1.3 H Glucose 138 H POC Glucose 147 H 124 H Lactic Acid Calcium Ionized Calcium Phosphorus Magnesium Direct Bilirubin AST ALT Alkaline Phosphatase 254 H Lactate Dehydrogenase Troponin T C-Reactive Protein Total Protein Albumin 1.3 L Prealbumin Triglycerides Cholesterol LDL Cholesterol Direct HDL Cholesterol 25-OH Vitamin D Total PTH Intact Urine pH Urine WBC (Auto) Urine Creatinine Urine Total Protein Fluid Total Protein Vancomycin Trough Rheumatoid Factor Complement C4 Miscellaneous Test Crossmatch 01/17/17 01/17/17 01/18/17 17:30 23:41 05:15 WBC RBC Hgb Hct MCV MCH MCHC RDW Plt Count Lymph % (Auto) Harper % (Auto) Lymph # Harper # Baso # Seg Neutrophils % Seg Neuts % (Manual) Lymphocytes % (Manual) Monocytes % (Manual) Eosinophils % (Manual) Basophils % (Manual) Nucleated RBC % Seg Neutrophils # Seg Neutrophils # Man Lymphocytes # (Manual) Monocytes # (Manual) Eosinophils # (Manual) Basophils # (Manual) PT INR Fibrinogen dRVVT Confirm Interp Factor V Activity POC ABG pH POC ABG pCO2 POC ABG pO2 ABG pO2 ABG HCO3 ABG Base Excess ABG Hemoglobin Oxyhemoglobin Sodium Potassium Chloride Carbon Dioxide BUN 89 H Creatinine 1.7 H Glucose 118 H POC Glucose 137 H 119 H Lactic Acid Calcium Ionized Calcium Phosphorus Magnesium Direct Bilirubin AST ALT Alkaline Phosphatase Lactate Dehydrogenase Troponin T C-Reactive Protein Total Protein Albumin Prealbumin Triglycerides Cholesterol LDL Cholesterol Direct HDL Cholesterol 25-OH Vitamin D Total PTH Intact Urine pH Urine WBC (Auto) Urine Creatinine Urine Total Protein Fluid Total Protein Vancomycin Trough Rheumatoid Factor Complement C4 Miscellaneous Test Crossmatch 01/18/17 01/18/17 01/18/17 05:19 12:16 18:11 WBC RBC Hgb Hct MCV MCH MCHC RDW Plt Count Lymph % (Auto) Harper % (Auto) Lymph # Harper # Baso # Seg Neutrophils % Seg Neuts % (Manual) Lymphocytes % (Manual) Monocytes % (Manual) Eosinophils % (Manual) Basophils % (Manual) Nucleated RBC % Seg Neutrophils # Seg Neutrophils # Man Lymphocytes # (Manual) Monocytes # (Manual) Eosinophils # (Manual) Basophils # (Manual) PT INR Fibrinogen dRVVT Confirm Interp Factor V Activity POC ABG pH POC ABG pCO2 POC ABG pO2 ABG pO2 ABG HCO3 ABG Base Excess ABG Hemoglobin Oxyhemoglobin Sodium Potassium Chloride Carbon Dioxide BUN Creatinine Glucose POC Glucose 134 H 188 H 113 H Lactic Acid Calcium Ionized Calcium Phosphorus Magnesium Direct Bilirubin AST ALT Alkaline Phosphatase Lactate Dehydrogenase Troponin T C-Reactive Protein Total Protein Albumin Prealbumin Triglycerides Cholesterol LDL Cholesterol Direct HDL Cholesterol 25-OH Vitamin D Total PTH Intact Urine pH Urine WBC (Auto) Urine Creatinine Urine Total Protein Fluid Total Protein Vancomycin Trough Rheumatoid Factor Complement C4 Miscellaneous Test Crossmatch 01/19/17 01/19/17 01/19/17 00:00 05:30 05:36 WBC RBC Hgb Hct MCV MCH MCHC RDW Plt Count Lymph % (Auto) Harper % (Auto) Lymph # Harper # Baso # Seg Neutrophils % Seg Neuts % (Manual) Lymphocytes % (Manual) Monocytes % (Manual) Eosinophils % (Manual) Basophils % (Manual) Nucleated RBC % Seg Neutrophils # Seg Neutrophils # Man Lymphocytes # (Manual) Monocytes # (Manual) Eosinophils # (Manual) Basophils # (Manual) PT INR Fibrinogen dRVVT Confirm Interp Factor V Activity POC ABG pH POC ABG pCO2 POC ABG pO2 ABG pO2 ABG HCO3 ABG Base Excess ABG Hemoglobin Oxyhemoglobin Sodium Potassium Chloride Carbon Dioxide BUN 70 H Creatinine 1.5 H Glucose 121 H POC Glucose 137 H 155 H Lactic Acid Calcium Ionized Calcium Phosphorus 2.10 L D Magnesium Direct Bilirubin AST ALT Alkaline Phosphatase Lactate Dehydrogenase Troponin T C-Reactive Protein Total Protein Albumin Prealbumin Triglycerides Cholesterol LDL Cholesterol Direct HDL Cholesterol 25-OH Vitamin D Total PTH Intact Urine pH Urine WBC (Auto) Urine Creatinine Urine Total Protein Fluid Total Protein Vancomycin Trough Rheumatoid Factor Complement C4 Miscellaneous Test Crossmatch 01/19/17 01/19/17 01/19/17 11:59 15:32 17:57 WBC RBC Hgb Hct MCV MCH MCHC RDW Plt Count Lymph % (Auto) Harper % (Auto) Lymph # Harper # Baso # Seg Neutrophils % Seg Neuts % (Manual) Lymphocytes % (Manual) Monocytes % (Manual) Eosinophils % (Manual) Basophils % (Manual) Nucleated RBC % Seg Neutrophils # Seg Neutrophils # Man Lymphocytes # (Manual) Monocytes # (Manual) Eosinophils # (Manual) Basophils # (Manual) PT INR Fibrinogen dRVVT Confirm Interp Factor V Activity POC ABG pH POC ABG pCO2 33.1 L POC ABG pO2 76 L ABG pO2 ABG HCO3 ABG Base Excess ABG Hemoglobin Oxyhemoglobin Sodium Potassium Chloride Carbon Dioxide BUN Creatinine Glucose POC Glucose 156 H 129 H Lactic Acid Calcium Ionized Calcium Phosphorus Magnesium Direct Bilirubin AST ALT Alkaline Phosphatase Lactate Dehydrogenase Troponin T C-Reactive Protein Total Protein Albumin Prealbumin Triglycerides Cholesterol LDL Cholesterol Direct HDL Cholesterol 25-OH Vitamin D Total PTH Intact Urine pH Urine WBC (Auto) Urine Creatinine Urine Total Protein Fluid Total Protein Vancomycin Trough Rheumatoid Factor Complement C4 Miscellaneous Test Crossmatch 01/19/17 01/20/17 01/20/17 23:49 04:00 05:21 WBC RBC Hgb Hct MCV MCH MCHC RDW Plt Count Lymph % (Auto) Harper % (Auto) Lymph # Harper # Baso # Seg Neutrophils % Seg Neuts % (Manual) Lymphocytes % (Manual) Monocytes % (Manual) Eosinophils % (Manual) Basophils % (Manual) Nucleated RBC % Seg Neutrophils # Seg Neutrophils # Man Lymphocytes # (Manual) Monocytes # (Manual) Eosinophils # (Manual) Basophils # (Manual) PT INR Fibrinogen dRVVT Confirm Interp Factor V Activity POC ABG pH POC ABG pCO2 POC ABG pO2 ABG pO2 ABG HCO3 ABG Base Excess ABG Hemoglobin Oxyhemoglobin Sodium Potassium Chloride Carbon Dioxide BUN 96 H Creatinine 1.9 H Glucose 106 H POC Glucose 125 H 130 H Lactic Acid Calcium Ionized Calcium Phosphorus 2.40 L Magnesium Direct Bilirubin AST ALT Alkaline Phosphatase Lactate Dehydrogenase Troponin T C-Reactive Protein Total Protein Albumin Prealbumin Triglycerides Cholesterol LDL Cholesterol Direct HDL Cholesterol 25-OH Vitamin D Total PTH Intact Urine pH Urine WBC (Auto) Urine Creatinine Urine Total Protein Fluid Total Protein Vancomycin Trough Rheumatoid Factor Complement C4 Miscellaneous Test Crossmatch 01/20/17 01/20/17 01/20/17 11:58 12:17 17:26 WBC RBC Hgb Hct MCV MCH MCHC RDW Plt Count Lymph % (Auto) Harper % (Auto) Lymph # Harper # Baso # Seg Neutrophils % Seg Neuts % (Manual) Lymphocytes % (Manual) Monocytes % (Manual) Eosinophils % (Manual) Basophils % (Manual) Nucleated RBC % Seg Neutrophils # Seg Neutrophils # Man Lymphocytes # (Manual) Monocytes # (Manual) Eosinophils # (Manual) Basophils # (Manual) PT INR Fibrinogen dRVVT Confirm Interp Factor V Activity POC ABG pH POC ABG pCO2 POC ABG pO2 70 L ABG pO2 ABG HCO3 ABG Base Excess ABG Hemoglobin Oxyhemoglobin Sodium Potassium Chloride Carbon Dioxide BUN Creatinine Glucose POC Glucose 118 H 154 H Lactic Acid Calcium Ionized Calcium Phosphorus Magnesium Direct Bilirubin AST ALT Alkaline Phosphatase Lactate Dehydrogenase Troponin T C-Reactive Protein Total Protein Albumin Prealbumin Triglycerides Cholesterol LDL Cholesterol Direct HDL Cholesterol 25-OH Vitamin D Total PTH Intact Urine pH Urine WBC (Auto) Urine Creatinine Urine Total Protein Fluid Total Protein Vancomycin Trough Rheumatoid Factor Complement C4 Miscellaneous Test Crossmatch 01/21/17 01/21/17 01/21/17 04:00 04:56 11:46 WBC RBC Hgb Hct MCV MCH MCHC RDW Plt Count Lymph % (Auto) Harper % (Auto) Lymph # Harper # Baso # Seg Neutrophils % Seg Neuts % (Manual) Lymphocytes % (Manual) Monocytes % (Manual) Eosinophils % (Manual) Basophils % (Manual) Nucleated RBC % Seg Neutrophils # Seg Neutrophils # Man Lymphocytes # (Manual) Monocytes # (Manual) Eosinophils # (Manual) Basophils # (Manual) PT INR Fibrinogen dRVVT Confirm Interp Factor V Activity POC ABG pH POC ABG pCO2 POC ABG pO2 ABG pO2 ABG HCO3 ABG Base Excess ABG Hemoglobin Oxyhemoglobin Sodium Potassium 3.5 L Chloride 97.4 L Carbon Dioxide BUN 66 H Creatinine 1.4 H Glucose POC Glucose 116 H 106 H Lactic Acid Calcium Ionized Calcium Phosphorus 2.10 L Magnesium Direct Bilirubin AST ALT Alkaline Phosphatase Lactate Dehydrogenase Troponin T C-Reactive Protein Total Protein Albumin Prealbumin Triglycerides Cholesterol LDL Cholesterol Direct HDL Cholesterol 25-OH Vitamin D Total PTH Intact Urine pH Urine WBC (Auto) Urine Creatinine Urine Total Protein Fluid Total Protein Vancomycin Trough Rheumatoid Factor Complement C4 Miscellaneous Test Crossmatch 01/21/17 01/21/17 01/22/17 17:25 23:49 05:35 WBC RBC Hgb Hct MCV MCH MCHC RDW Plt Count Lymph % (Auto) Harper % (Auto) Lymph # Harper # Baso # Seg Neutrophils % Seg Neuts % (Manual) Lymphocytes % (Manual) Monocytes % (Manual) Eosinophils % (Manual) Basophils % (Manual) Nucleated RBC % Seg Neutrophils # Seg Neutrophils # Man Lymphocytes # (Manual) Monocytes # (Manual) Eosinophils # (Manual) Basophils # (Manual) PT INR Fibrinogen dRVVT Confirm Interp Factor V Activity POC ABG pH POC ABG pCO2 POC ABG pO2 ABG pO2 ABG HCO3 ABG Base Excess ABG Hemoglobin Oxyhemoglobin Sodium Potassium Chloride Carbon Dioxide BUN Creatinine Glucose POC Glucose 106 H 133 H 107 H Lactic Acid Calcium Ionized Calcium Phosphorus Magnesium Direct Bilirubin AST ALT Alkaline Phosphatase Lactate Dehydrogenase Troponin T C-Reactive Protein Total Protein Albumin Prealbumin Triglycerides Cholesterol LDL Cholesterol Direct HDL Cholesterol 25-OH Vitamin D Total PTH Intact Urine pH Urine WBC (Auto) Urine Creatinine Urine Total Protein Fluid Total Protein Vancomycin Trough Rheumatoid Factor Complement C4 Miscellaneous Test Crossmatch 01/22/17 01/22/17 01/22/17 07:20 07:20 11:31 WBC RBC 2.75 L Hgb 7.5 L Hct 22.7 L MCV MCH 27 L MCHC RDW 17.5 H Plt Count Lymph % (Auto) Harper % (Auto) Lymph # Harper # Baso # Seg Neutrophils % Seg Neuts % (Manual) Lymphocytes % (Manual) Monocytes % (Manual) Eosinophils % (Manual) Basophils % (Manual) Nucleated RBC % Seg Neutrophils # Seg Neutrophils # Man Lymphocytes # (Manual) Monocytes # (Manual) Eosinophils # (Manual) Basophils # (Manual) PT INR Fibrinogen dRVVT Confirm Interp Factor V Activity POC ABG pH POC ABG pCO2 POC ABG pO2 ABG pO2 ABG HCO3 ABG Base Excess ABG Hemoglobin Oxyhemoglobin Sodium Potassium 3.3 L Chloride Carbon Dioxide BUN 42 H Creatinine Glucose 105 H POC Glucose 124 H Lactic Acid Calcium Ionized Calcium Phosphorus 1.70 L Magnesium Direct Bilirubin AST ALT Alkaline Phosphatase Lactate Dehydrogenase Troponin T C-Reactive Protein Total Protein Albumin Prealbumin Triglycerides Cholesterol LDL Cholesterol Direct HDL Cholesterol 25-OH Vitamin D Total PTH Intact Urine pH Urine WBC (Auto) Urine Creatinine Urine Total Protein Fluid Total Protein Vancomycin Trough Rheumatoid Factor Complement C4 Miscellaneous Test Crossmatch 01/22/17 01/22/17 01/23/17 17:16 23:35 05:35 WBC RBC Hgb Hct MCV MCH MCHC RDW Plt Count Lymph % (Auto) Harper % (Auto) Lymph # Harper # Baso # Seg Neutrophils % Seg Neuts % (Manual) Lymphocytes % (Manual) Monocytes % (Manual) Eosinophils % (Manual) Basophils % (Manual) Nucleated RBC % Seg Neutrophils # Seg Neutrophils # Man Lymphocytes # (Manual) Monocytes # (Manual) Eosinophils # (Manual) Basophils # (Manual) PT INR Fibrinogen dRVVT Confirm Interp Factor V Activity POC ABG pH POC ABG pCO2 POC ABG pO2 ABG pO2 ABG HCO3 ABG Base Excess ABG Hemoglobin Oxyhemoglobin Sodium Potassium Chloride Carbon Dioxide BUN Creatinine Glucose POC Glucose 135 H 120 H 111 H Lactic Acid Calcium Ionized Calcium Phosphorus Magnesium Direct Bilirubin AST ALT Alkaline Phosphatase Lactate Dehydrogenase Troponin T C-Reactive Protein Total Protein Albumin Prealbumin Triglycerides Cholesterol LDL Cholesterol Direct HDL Cholesterol 25-OH Vitamin D Total PTH Intact Urine pH Urine WBC (Auto) Urine Creatinine Urine Total Protein Fluid Total Protein Vancomycin Trough Rheumatoid Factor Complement C4 Miscellaneous Test Crossmatch 01/23/17 01/23/17 01/23/17 06:10 17:27 23:44 WBC RBC Hgb Hct MCV MCH MCHC RDW Plt Count Lymph % (Auto) Harper % (Auto) Lymph # Harper # Baso # Seg Neutrophils % Seg Neuts % (Manual) Lymphocytes % (Manual) Monocytes % (Manual) Eosinophils % (Manual) Basophils % (Manual) Nucleated RBC % Seg Neutrophils # Seg Neutrophils # Man Lymphocytes # (Manual) Monocytes # (Manual) Eosinophils # (Manual) Basophils # (Manual) PT INR Fibrinogen dRVVT Confirm Interp Factor V Activity POC ABG pH POC ABG pCO2 POC ABG pO2 ABG pO2 ABG HCO3 ABG Base Excess ABG Hemoglobin Oxyhemoglobin Sodium Potassium 3.3 L Chloride Carbon Dioxide BUN 66 H Creatinine 1.3 H Glucose 109 H POC Glucose 120 H 115 H Lactic Acid Calcium Ionized Calcium Phosphorus 2.20 L D Magnesium Direct Bilirubin AST ALT Alkaline Phosphatase Lactate Dehydrogenase Troponin T C-Reactive Protein Total Protein Albumin Prealbumin Triglycerides Cholesterol LDL Cholesterol Direct HDL Cholesterol 25-OH Vitamin D Total PTH Intact Urine pH Urine WBC (Auto) Urine Creatinine Urine Total Protein Fluid Total Protein Vancomycin Trough Rheumatoid Factor Complement C4 Miscellaneous Test Crossmatch 01/24/17 01/24/17 01/24/17 05:19 05:50 12:19 WBC RBC Hgb Hct MCV MCH MCHC RDW Plt Count Lymph % (Auto) Harper % (Auto) Lymph # Harper # Baso # Seg Neutrophils % Seg Neuts % (Manual) Lymphocytes % (Manual) Monocytes % (Manual) Eosinophils % (Manual) Basophils % (Manual) Nucleated RBC % Seg Neutrophils # Seg Neutrophils # Man Lymphocytes # (Manual) Monocytes # (Manual) Eosinophils # (Manual) Basophils # (Manual) PT INR Fibrinogen dRVVT Confirm Interp Factor V Activity POC ABG pH POC ABG pCO2 POC ABG pO2 ABG pO2 ABG HCO3 ABG Base Excess ABG Hemoglobin Oxyhemoglobin Sodium Potassium Chloride Carbon Dioxide BUN 47 H Creatinine Glucose 117 H POC Glucose 126 H 119 H Lactic Acid Calcium Ionized Calcium Phosphorus 2.30 L Magnesium 1.60 L Direct Bilirubin AST ALT Alkaline Phosphatase Lactate Dehydrogenase Troponin T C-Reactive Protein Total Protein Albumin Prealbumin Triglycerides Cholesterol LDL Cholesterol Direct HDL Cholesterol 25-OH Vitamin D Total PTH Intact Urine pH Urine WBC (Auto) Urine Creatinine Urine Total Protein Fluid Total Protein Vancomycin Trough Rheumatoid Factor Complement C4 Miscellaneous Test Crossmatch 01/24/17 01/25/17 01/25/17 17:08 00:37 04:00 WBC RBC Hgb Hct MCV MCH MCHC RDW Plt Count Lymph % (Auto) Harper % (Auto) Lymph # Harper # Baso # Seg Neutrophils % Seg Neuts % (Manual) Lymphocytes % (Manual) Monocytes % (Manual) Eosinophils % (Manual) Basophils % (Manual) Nucleated RBC % Seg Neutrophils # Seg Neutrophils # Man Lymphocytes # (Manual) Monocytes # (Manual) Eosinophils # (Manual) Basophils # (Manual) PT INR Fibrinogen dRVVT Confirm Interp Factor V Activity POC ABG pH POC ABG pCO2 POC ABG pO2 ABG pO2 ABG HCO3 ABG Base Excess ABG Hemoglobin Oxyhemoglobin Sodium Potassium Chloride Carbon Dioxide BUN 72 H Creatinine 1.3 H Glucose POC Glucose 127 H 110 H Lactic Acid Calcium Ionized Calcium Phosphorus Magnesium Direct Bilirubin AST ALT Alkaline Phosphatase Lactate Dehydrogenase Troponin T C-Reactive Protein Total Protein Albumin Prealbumin Triglycerides Cholesterol LDL Cholesterol Direct HDL Cholesterol 25-OH Vitamin D Total PTH Intact Urine pH Urine WBC (Auto) Urine Creatinine Urine Total Protein Fluid Total Protein Vancomycin Trough Rheumatoid Factor Complement C4 Miscellaneous Test Crossmatch 01/25/17 01/25/17 01/25/17 04:00 11:15 13:05 WBC RBC 2.49 L Hgb 6.7 L Hct 20.9 L MCV MCH 27 L MCHC RDW 18.8 H Plt Count Lymph % (Auto) Harper % (Auto) 10.1 H Lymph # Harper # 1.0 H Baso # Seg Neutrophils % Seg Neuts % (Manual) Lymphocytes % (Manual) Monocytes % (Manual) Eosinophils % (Manual) Basophils % (Manual) Nucleated RBC % Seg Neutrophils # Seg Neutrophils # Man Lymphocytes # (Manual) Monocytes # (Manual) Eosinophils # (Manual) Basophils # (Manual) PT INR Fibrinogen dRVVT Confirm Interp Factor V Activity POC ABG pH POC ABG pCO2 POC ABG pO2 ABG pO2 ABG HCO3 ABG Base Excess ABG Hemoglobin Oxyhemoglobin Sodium Potassium Chloride Carbon Dioxide BUN Creatinine Glucose POC Glucose 128 H Lactic Acid Calcium Ionized Calcium Phosphorus Magnesium Direct Bilirubin AST ALT Alkaline Phosphatase Lactate Dehydrogenase Troponin T C-Reactive Protein Total Protein Albumin Prealbumin Triglycerides Cholesterol LDL Cholesterol Direct HDL Cholesterol 25-OH Vitamin D Total PTH Intact Urine pH Urine WBC (Auto) Urine Creatinine Urine Total Protein Fluid Total Protein Vancomycin Trough Rheumatoid Factor Complement C4 Miscellaneous Test Crossmatch See Detail 01/25/17 01/25/17 01/26/17 18:02 23:07 01:20 WBC RBC Hgb Hct MCV MCH MCHC RDW Plt Count Lymph % (Auto) Harper % (Auto) Lymph # Harper # Baso # Seg Neutrophils % Seg Neuts % (Manual) Lymphocytes % (Manual) Monocytes % (Manual) Eosinophils % (Manual) Basophils % (Manual) Nucleated RBC % Seg Neutrophils # Seg Neutrophils # Man Lymphocytes # (Manual) Monocytes # (Manual) Eosinophils # (Manual) Basophils # (Manual) PT INR Fibrinogen dRVVT Confirm Interp Factor V Activity POC ABG pH POC ABG pCO2 POC ABG pO2 ABG pO2 ABG HCO3 ABG Base Excess ABG Hemoglobin Oxyhemoglobin Sodium Potassium Chloride Carbon Dioxide BUN Creatinine Glucose POC Glucose 120 H 123 H 112 H Lactic Acid Calcium Ionized Calcium Phosphorus Magnesium Direct Bilirubin AST ALT Alkaline Phosphatase Lactate Dehydrogenase Troponin T C-Reactive Protein Total Protein Albumin Prealbumin Triglycerides Cholesterol LDL Cholesterol Direct HDL Cholesterol 25-OH Vitamin D Total PTH Intact Urine pH Urine WBC (Auto) Urine Creatinine Urine Total Protein Fluid Total Protein Vancomycin Trough Rheumatoid Factor Complement C4 Miscellaneous Test Crossmatch 01/26/17 01/26/17 01/26/17 04:20 04:20 11:23 WBC 13.1 H RBC 3.28 L Hgb 9.0 L Hct 26.9 L D MCV MCH 27 L MCHC RDW 17.2 H Plt Count Lymph % (Auto) Harper % (Auto) 9.0 H Lymph # Harper # 1.2 H Baso # Seg Neutrophils % 73.1 H Seg Neuts % (Manual) Lymphocytes % (Manual) Monocytes % (Manual) Eosinophils % (Manual) Basophils % (Manual) Nucleated RBC % Seg Neutrophils # 9.6 H Seg Neutrophils # Man Lymphocytes # (Manual) Monocytes # (Manual) Eosinophils # (Manual) Basophils # (Manual) PT INR Fibrinogen dRVVT Confirm Interp Factor V Activity POC ABG pH POC ABG pCO2 POC ABG pO2 ABG pO2 ABG HCO3 ABG Base Excess ABG Hemoglobin Oxyhemoglobin Sodium Potassium Chloride Carbon Dioxide BUN 51 H Creatinine Glucose 117 H POC Glucose 125 H Lactic Acid Calcium Ionized Calcium Phosphorus Magnesium Direct Bilirubin AST ALT Alkaline Phosphatase Lactate Dehydrogenase Troponin T C-Reactive Protein Total Protein Albumin Prealbumin Triglycerides Cholesterol LDL Cholesterol Direct HDL Cholesterol 25-OH Vitamin D Total PTH Intact Urine pH Urine WBC (Auto) Urine Creatinine Urine Total Protein Fluid Total Protein Vancomycin Trough Rheumatoid Factor Complement C4 Miscellaneous Test Crossmatch 01/26/17 01/27/17 01/27/17 17:11 00:30 04:00 WBC RBC Hgb Hct MCV MCH MCHC RDW Plt Count Lymph % (Auto) Harper % (Auto) Lymph # Harper # Baso # Seg Neutrophils % Seg Neuts % (Manual) Lymphocytes % (Manual) Monocytes % (Manual) Eosinophils % (Manual) Basophils % (Manual) Nucleated RBC % Seg Neutrophils # Seg Neutrophils # Man Lymphocytes # (Manual) Monocytes # (Manual) Eosinophils # (Manual) Basophils # (Manual) PT INR Fibrinogen dRVVT Confirm Interp Factor V Activity POC ABG pH POC ABG pCO2 POC ABG pO2 ABG pO2 ABG HCO3 ABG Base Excess ABG Hemoglobin Oxyhemoglobin Sodium Potassium Chloride 97.7 L Carbon Dioxide 21 L BUN 79 H Creatinine 1.7 H D Glucose 112 H POC Glucose 133 H 135 H Lactic Acid Calcium Ionized Calcium Phosphorus 5.00 H D Magnesium Direct Bilirubin AST ALT Alkaline Phosphatase Lactate Dehydrogenase Troponin T C-Reactive Protein Total Protein Albumin Prealbumin Triglycerides Cholesterol LDL Cholesterol Direct HDL Cholesterol 25-OH Vitamin D Total PTH Intact Urine pH Urine WBC (Auto) Urine Creatinine Urine Total Protein Fluid Total Protein Vancomycin Trough Rheumatoid Factor Complement C4 Miscellaneous Test Crossmatch 01/27/17 01/27/17 01/27/17 05:12 12:18 17:25 WBC RBC Hgb Hct MCV MCH MCHC RDW Plt Count Lymph % (Auto) Harper % (Auto) Lymph # Harper # Baso # Seg Neutrophils % Seg Neuts % (Manual) Lymphocytes % (Manual) Monocytes % (Manual) Eosinophils % (Manual) Basophils % (Manual) Nucleated RBC % Seg Neutrophils # Seg Neutrophils # Man Lymphocytes # (Manual) Monocytes # (Manual) Eosinophils # (Manual) Basophils # (Manual) PT INR Fibrinogen dRVVT Confirm Interp Factor V Activity POC ABG pH POC ABG pCO2 POC ABG pO2 ABG pO2 ABG HCO3 ABG Base Excess ABG Hemoglobin Oxyhemoglobin Sodium Potassium Chloride Carbon Dioxide BUN Creatinine Glucose POC Glucose 116 H 153 H 152 H Lactic Acid Calcium Ionized Calcium Phosphorus Magnesium Direct Bilirubin AST ALT Alkaline Phosphatase Lactate Dehydrogenase Troponin T C-Reactive Protein Total Protein Albumin Prealbumin Triglycerides Cholesterol LDL Cholesterol Direct HDL Cholesterol 25-OH Vitamin D Total PTH Intact Urine pH Urine WBC (Auto) Urine Creatinine Urine Total Protein Fluid Total Protein Vancomycin Trough Rheumatoid Factor Complement C4 Miscellaneous Test Crossmatch 01/27/17 01/28/17 01/28/17 23:42 04:00 04:00 WBC 14.4 H RBC 2.82 L Hgb 7.4 L Hct 23.5 L MCV MCH 26 L MCHC RDW 17.6 H Plt Count Lymph % (Auto) 10.2 L Harper % (Auto) 11.0 H Lymph # Harper # 1.6 H Baso # Seg Neutrophils % 78.0 H Seg Neuts % (Manual) Lymphocytes % (Manual) Monocytes % (Manual) Eosinophils % (Manual) Basophils % (Manual) Nucleated RBC % Seg Neutrophils # 11.3 H Seg Neutrophils # Man Lymphocytes # (Manual) Monocytes # (Manual) Eosinophils # (Manual) Basophils # (Manual) PT INR Fibrinogen dRVVT Confirm Interp Factor V Activity POC ABG pH POC ABG pCO2 POC ABG pO2 ABG pO2 ABG HCO3 ABG Base Excess ABG Hemoglobin Oxyhemoglobin Sodium Potassium Chloride Carbon Dioxide BUN 55 H Creatinine 1.3 H Glucose 114 H POC Glucose 121 H Lactic Acid Calcium Ionized Calcium Phosphorus Magnesium Direct Bilirubin AST ALT Alkaline Phosphatase Lactate Dehydrogenase Troponin T C-Reactive Protein Total Protein Albumin 1.4 L Prealbumin Triglycerides Cholesterol LDL Cholesterol Direct HDL Cholesterol 25-OH Vitamin D Total PTH Intact Urine pH Urine WBC (Auto) Urine Creatinine Urine Total Protein Fluid Total Protein Vancomycin Trough Rheumatoid Factor Complement C4 Miscellaneous Test Crossmatch 01/28/17 01/28/17 01/29/17 04:59 12:30 00:02 WBC RBC Hgb Hct MCV MCH MCHC RDW Plt Count Lymph % (Auto) Harper % (Auto) Lymph # Harper # Baso # Seg Neutrophils % Seg Neuts % (Manual) Lymphocytes % (Manual) Monocytes % (Manual) Eosinophils % (Manual) Basophils % (Manual) Nucleated RBC % Seg Neutrophils # Seg Neutrophils # Man Lymphocytes # (Manual) Monocytes # (Manual) Eosinophils # (Manual) Basophils # (Manual) PT INR Fibrinogen dRVVT Confirm Interp Factor V Activity POC ABG pH POC ABG pCO2 POC ABG pO2 ABG pO2 ABG HCO3 ABG Base Excess ABG Hemoglobin Oxyhemoglobin Sodium Potassium Chloride Carbon Dioxide BUN Creatinine Glucose POC Glucose 126 H 119 H 138 H Lactic Acid Calcium Ionized Calcium Phosphorus Magnesium Direct Bilirubin AST ALT Alkaline Phosphatase Lactate Dehydrogenase Troponin T C-Reactive Protein Total Protein Albumin Prealbumin Triglycerides Cholesterol LDL Cholesterol Direct HDL Cholesterol 25-OH Vitamin D Total PTH Intact Urine pH Urine WBC (Auto) Urine Creatinine Urine Total Protein Fluid Total Protein Vancomycin Trough Rheumatoid Factor Complement C4 Miscellaneous Test Crossmatch 01/29/17 01/29/17 01/29/17 04:58 06:15 11:35 WBC RBC Hgb Hct MCV MCH MCHC RDW Plt Count Lymph % (Auto) Harper % (Auto) Lymph # Harper # Baso # Seg Neutrophils % Seg Neuts % (Manual) Lymphocytes % (Manual) Monocytes % (Manual) Eosinophils % (Manual) Basophils % (Manual) Nucleated RBC % Seg Neutrophils # Seg Neutrophils # Man Lymphocytes # (Manual) Monocytes # (Manual) Eosinophils # (Manual) Basophils # (Manual) PT INR Fibrinogen dRVVT Confirm Interp Factor V Activity POC ABG pH POC ABG pCO2 POC ABG pO2 ABG pO2 ABG HCO3 ABG Base Excess ABG Hemoglobin Oxyhemoglobin Sodium Potassium Chloride Carbon Dioxide BUN 85 H Creatinine 1.7 H Glucose 105 H POC Glucose 114 H 110 H Lactic Acid Calcium Ionized Calcium Phosphorus Magnesium 2.40 H Direct Bilirubin AST ALT Alkaline Phosphatase Lactate Dehydrogenase Troponin T C-Reactive Protein Total Protein Albumin Prealbumin Triglycerides Cholesterol LDL Cholesterol Direct HDL Cholesterol 25-OH Vitamin D Total PTH Intact Urine pH Urine WBC (Auto) Urine Creatinine Urine Total Protein Fluid Total Protein Vancomycin Trough Rheumatoid Factor Complement C4 Miscellaneous Test Crossmatch 01/29/17 01/29/17 01/30/17 18:24 23:41 05:12 WBC RBC Hgb Hct MCV MCH MCHC RDW Plt Count Lymph % (Auto) Harper % (Auto) Lymph # Harper # Baso # Seg Neutrophils % Seg Neuts % (Manual) Lymphocytes % (Manual) Monocytes % (Manual) Eosinophils % (Manual) Basophils % (Manual) Nucleated RBC % Seg Neutrophils # Seg Neutrophils # Man Lymphocytes # (Manual) Monocytes # (Manual) Eosinophils # (Manual) Basophils # (Manual) PT INR Fibrinogen dRVVT Confirm Interp Factor V Activity POC ABG pH POC ABG pCO2 POC ABG pO2 ABG pO2 ABG HCO3 ABG Base Excess ABG Hemoglobin Oxyhemoglobin Sodium Potassium Chloride Carbon Dioxide BUN Creatinine Glucose POC Glucose 109 H 134 H 109 H Lactic Acid Calcium Ionized Calcium Phosphorus Magnesium Direct Bilirubin AST ALT Alkaline Phosphatase Lactate Dehydrogenase Troponin T C-Reactive Protein Total Protein Albumin Prealbumin Triglycerides Cholesterol LDL Cholesterol Direct HDL Cholesterol 25-OH Vitamin D Total PTH Intact Urine pH Urine WBC (Auto) Urine Creatinine Urine Total Protein Fluid Total Protein Vancomycin Trough Rheumatoid Factor Complement C4 Miscellaneous Test Crossmatch 01/30/17 01/30/17 01/30/17 11:26 17:43 23:39 WBC RBC Hgb Hct MCV MCH MCHC RDW Plt Count Lymph % (Auto) Harper % (Auto) Lymph # Harper # Baso # Seg Neutrophils % Seg Neuts % (Manual) Lymphocytes % (Manual) Monocytes % (Manual) Eosinophils % (Manual) Basophils % (Manual) Nucleated RBC % Seg Neutrophils # Seg Neutrophils # Man Lymphocytes # (Manual) Monocytes # (Manual) Eosinophils # (Manual) Basophils # (Manual) PT INR Fibrinogen dRVVT Confirm Interp Factor V Activity POC ABG pH POC ABG pCO2 POC ABG pO2 ABG pO2 ABG HCO3 ABG Base Excess ABG Hemoglobin Oxyhemoglobin Sodium Potassium Chloride Carbon Dioxide BUN Creatinine Glucose POC Glucose 135 H 143 H 122 H Lactic Acid Calcium Ionized Calcium Phosphorus Magnesium Direct Bilirubin AST ALT Alkaline Phosphatase Lactate Dehydrogenase Troponin T C-Reactive Protein Total Protein Albumin Prealbumin Triglycerides Cholesterol LDL Cholesterol Direct HDL Cholesterol 25-OH Vitamin D Total PTH Intact Urine pH Urine WBC (Auto) Urine Creatinine Urine Total Protein Fluid Total Protein Vancomycin Trough Rheumatoid Factor Complement C4 Miscellaneous Test Crossmatch 01/31/17 01/31/17 01/31/17 04:00 05:40 11:12 WBC RBC Hgb Hct MCV MCH MCHC RDW Plt Count Lymph % (Auto) Harper % (Auto) Lymph # Harper # Baso # Seg Neutrophils % Seg Neuts % (Manual) Lymphocytes % (Manual) Monocytes % (Manual) Eosinophils % (Manual) Basophils % (Manual) Nucleated RBC % Seg Neutrophils # Seg Neutrophils # Man Lymphocytes # (Manual) Monocytes # (Manual) Eosinophils # (Manual) Basophils # (Manual) PT INR Fibrinogen dRVVT Confirm Interp Factor V Activity POC ABG pH POC ABG pCO2 POC ABG pO2 ABG pO2 ABG HCO3 ABG Base Excess ABG Hemoglobin Oxyhemoglobin Sodium Potassium Chloride Carbon Dioxide BUN 78 H Creatinine 1.5 H Glucose 108 H POC Glucose 123 H Lactic Acid Calcium Ionized Calcium Phosphorus Magnesium Direct Bilirubin AST ALT Alkaline Phosphatase Lactate Dehydrogenase Troponin T C-Reactive Protein 8.10 H Total Protein Albumin Prealbumin Triglycerides Cholesterol LDL Cholesterol Direct HDL Cholesterol 25-OH Vitamin D Total PTH Intact Urine pH Urine WBC (Auto) Urine Creatinine Urine Total Protein Fluid Total Protein Vancomycin Trough Rheumatoid Factor Complement C4 Miscellaneous Test Crossmatch 01/31/17 01/31/17 01/31/17 11:16 17:45 17:50 WBC RBC Hgb Hct MCV MCH MCHC RDW Plt Count Lymph % (Auto) Harper % (Auto) Lymph # Harper # Baso # Seg Neutrophils % Seg Neuts % (Manual) Lymphocytes % (Manual) Monocytes % (Manual) Eosinophils % (Manual) Basophils % (Manual) Nucleated RBC % Seg Neutrophils # Seg Neutrophils # Man Lymphocytes # (Manual) Monocytes # (Manual) Eosinophils # (Manual) Basophils # (Manual) PT INR Fibrinogen dRVVT Confirm Interp Factor V Activity POC ABG pH POC ABG pCO2 POC ABG pO2 ABG pO2 ABG HCO3 ABG Base Excess ABG Hemoglobin Oxyhemoglobin Sodium Potassium Chloride Carbon Dioxide BUN Creatinine Glucose POC Glucose 119 H 111 H Lactic Acid Calcium Ionized Calcium Phosphorus Magnesium Direct Bilirubin AST ALT Alkaline Phosphatase Lactate Dehydrogenase Troponin T C-Reactive Protein Total Protein Albumin Prealbumin Triglycerides Cholesterol LDL Cholesterol Direct HDL Cholesterol 25-OH Vitamin D Total PTH Intact 6.76 L Urine pH Urine WBC (Auto) Urine Creatinine Urine Total Protein Fluid Total Protein Vancomycin Trough Rheumatoid Factor Complement C4 Miscellaneous Test Crossmatch 01/31/17 02/01/17 02/01/17 23:19 05:42 09:24 WBC RBC Hgb Hct MCV MCH MCHC RDW Plt Count Lymph % (Auto) Harper % (Auto) Lymph # Harper # Baso # Seg Neutrophils % Seg Neuts % (Manual) Lymphocytes % (Manual) Monocytes % (Manual) Eosinophils % (Manual) Basophils % (Manual) Nucleated RBC % Seg Neutrophils # Seg Neutrophils # Man Lymphocytes # (Manual) Monocytes # (Manual) Eosinophils # (Manual) Basophils # (Manual) PT INR Fibrinogen dRVVT Confirm Interp Factor V Activity POC ABG pH POC ABG pCO2 POC ABG pO2 ABG pO2 ABG HCO3 ABG Base Excess ABG Hemoglobin Oxyhemoglobin Sodium Potassium Chloride Carbon Dioxide BUN Creatinine Glucose POC Glucose 118 H 122 H Lactic Acid Calcium Ionized Calcium Phosphorus Magnesium 2.60 H Direct Bilirubin AST ALT Alkaline Phosphatase Lactate Dehydrogenase Troponin T C-Reactive Protein Total Protein Albumin Prealbumin Triglycerides Cholesterol LDL Cholesterol Direct HDL Cholesterol 25-OH Vitamin D Total PTH Intact Urine pH Urine WBC (Auto) Urine Creatinine Urine Total Protein Fluid Total Protein Vancomycin Trough Rheumatoid Factor Complement C4 Miscellaneous Test Crossmatch 02/01/17 02/01/17 02/02/17 09:24 12:15 07:40 WBC RBC Hgb Hct MCV MCH MCHC RDW Plt Count Lymph % (Auto) Harper % (Auto) Lymph # Harper # Baso # Seg Neutrophils % Seg Neuts % (Manual) Lymphocytes % (Manual) Monocytes % (Manual) Eosinophils % (Manual) Basophils % (Manual) Nucleated RBC % Seg Neutrophils # Seg Neutrophils # Man Lymphocytes # (Manual) Monocytes # (Manual) Eosinophils # (Manual) Basophils # (Manual) PT INR Fibrinogen dRVVT Confirm Interp Factor V Activity POC ABG pH POC ABG pCO2 POC ABG pO2 ABG pO2 ABG HCO3 ABG Base Excess ABG Hemoglobin Oxyhemoglobin Sodium Potassium Chloride Carbon Dioxide BUN 102 H 72 H Creatinine 1.9 H 1.5 H Glucose 120 H POC Glucose 156 H Lactic Acid Calcium Ionized Calcium Phosphorus Magnesium Direct Bilirubin AST ALT Alkaline Phosphatase Lactate Dehydrogenase Troponin T C-Reactive Protein Total Protein Albumin Prealbumin Triglycerides Cholesterol LDL Cholesterol Direct HDL Cholesterol 25-OH Vitamin D Total PTH Intact Urine pH Urine WBC (Auto) Urine Creatinine Urine Total Protein Fluid Total Protein Vancomycin Trough Rheumatoid Factor Complement C4 Miscellaneous Test Crossmatch 02/02/17 02/02/17 02/03/17 10:16 12:11 00:08 WBC 12.0 H RBC 3.08 L Hgb 8.3 L Hct 25.6 L MCV MCH 27 L MCHC RDW 18.2 H Plt Count Lymph % (Auto) Harper % (Auto) Lymph # Harper # Baso # Seg Neutrophils % 78.4 H Seg Neuts % (Manual) Lymphocytes % (Manual) Monocytes % (Manual) Eosinophils % (Manual) Basophils % (Manual) Nucleated RBC % Seg Neutrophils # 9.4 H Seg Neutrophils # Man Lymphocytes # (Manual) Monocytes # (Manual) Eosinophils # (Manual) Basophils # (Manual) PT INR Fibrinogen dRVVT Confirm Interp Factor V Activity POC ABG pH POC ABG pCO2 POC ABG pO2 ABG pO2 ABG HCO3 ABG Base Excess ABG Hemoglobin Oxyhemoglobin Sodium Potassium Chloride Carbon Dioxide BUN Creatinine Glucose POC Glucose 110 H 120 H Lactic Acid Calcium Ionized Calcium Phosphorus Magnesium Direct Bilirubin AST ALT Alkaline Phosphatase Lactate Dehydrogenase Troponin T C-Reactive Protein Total Protein Albumin Prealbumin Triglycerides Cholesterol LDL Cholesterol Direct HDL Cholesterol 25-OH Vitamin D Total PTH Intact Urine pH Urine WBC (Auto) Urine Creatinine Urine Total Protein Fluid Total Protein Vancomycin Trough Rheumatoid Factor Complement C4 Miscellaneous Test Crossmatch 02/03/17 02/03/17 02/03/17 05:41 07:38 11:31 WBC RBC Hgb Hct MCV MCH MCHC RDW Plt Count Lymph % (Auto) Harper % (Auto) Lymph # Harper # Baso # Seg Neutrophils % Seg Neuts % (Manual) Lymphocytes % (Manual) Monocytes % (Manual) Eosinophils % (Manual) Basophils % (Manual) Nucleated RBC % Seg Neutrophils # Seg Neutrophils # Man Lymphocytes # (Manual) Monocytes # (Manual) Eosinophils # (Manual) Basophils # (Manual) PT INR Fibrinogen dRVVT Confirm Interp Factor V Activity POC ABG pH POC ABG pCO2 POC ABG pO2 ABG pO2 ABG HCO3 ABG Base Excess ABG Hemoglobin Oxyhemoglobin Sodium 134 L Potassium Chloride Carbon Dioxide 21 L BUN 91 H Creatinine 1.9 H Glucose 110 H POC Glucose 119 H 119 H Lactic Acid Calcium 10.3 H Ionized Calcium Phosphorus Magnesium Direct Bilirubin AST ALT Alkaline Phosphatase Lactate Dehydrogenase Troponin T C-Reactive Protein Total Protein Albumin Prealbumin Triglycerides Cholesterol LDL Cholesterol Direct HDL Cholesterol 25-OH Vitamin D Total PTH Intact Urine pH Urine WBC (Auto) Urine Creatinine Urine Total Protein Fluid Total Protein Vancomycin Trough Rheumatoid Factor Complement C4 Miscellaneous Test Crossmatch 02/03/17 02/04/17 02/04/17 17:13 04:00 05:18 WBC RBC Hgb Hct MCV MCH MCHC RDW Plt Count Lymph % (Auto) Harper % (Auto) Lymph # Harper # Baso # Seg Neutrophils % Seg Neuts % (Manual) Lymphocytes % (Manual) Monocytes % (Manual) Eosinophils % (Manual) Basophils % (Manual) Nucleated RBC % Seg Neutrophils # Seg Neutrophils # Man Lymphocytes # (Manual) Monocytes # (Manual) Eosinophils # (Manual) Basophils # (Manual) PT INR Fibrinogen dRVVT Confirm Interp Factor V Activity POC ABG pH POC ABG pCO2 POC ABG pO2 ABG pO2 ABG HCO3 ABG Base Excess ABG Hemoglobin Oxyhemoglobin Sodium 136 L Potassium Chloride Carbon Dioxide BUN 58 H Creatinine 1.3 H Glucose 103 H POC Glucose 133 H 132 H Lactic Acid Calcium Ionized Calcium Phosphorus 2.00 L D Magnesium 1.60 L Direct Bilirubin AST ALT Alkaline Phosphatase Lactate Dehydrogenase Troponin T C-Reactive Protein Total Protein Albumin Prealbumin Triglycerides Cholesterol LDL Cholesterol Direct HDL Cholesterol 25-OH Vitamin D Total PTH Intact Urine pH Urine WBC (Auto) Urine Creatinine Urine Total Protein Fluid Total Protein Vancomycin Trough Rheumatoid Factor Complement C4 Miscellaneous Test Crossmatch 02/05/17 02/05/17 02/05/17 00:01 04:00 06:42 WBC RBC Hgb Hct MCV MCH MCHC RDW Plt Count Lymph % (Auto) Harper % (Auto) Lymph # Harper # Baso # Seg Neutrophils % Seg Neuts % (Manual) Lymphocytes % (Manual) Monocytes % (Manual) Eosinophils % (Manual) Basophils % (Manual) Nucleated RBC % Seg Neutrophils # Seg Neutrophils # Man Lymphocytes # (Manual) Monocytes # (Manual) Eosinophils # (Manual) Basophils # (Manual) PT INR Fibrinogen dRVVT Confirm Interp Factor V Activity POC ABG pH POC ABG pCO2 POC ABG pO2 ABG pO2 ABG HCO3 ABG Base Excess ABG Hemoglobin Oxyhemoglobin Sodium Potassium Chloride Carbon Dioxide BUN 83 H Creatinine 1.8 H Glucose POC Glucose 119 H 110 H Lactic Acid Calcium 10.7 H Ionized Calcium Phosphorus Magnesium Direct Bilirubin AST ALT Alkaline Phosphatase Lactate Dehydrogenase Troponin T C-Reactive Protein Total Protein Albumin Prealbumin Triglycerides Cholesterol LDL Cholesterol Direct HDL Cholesterol 25-OH Vitamin D Total PTH Intact Urine pH Urine WBC (Auto) Urine Creatinine Urine Total Protein Fluid Total Protein Vancomycin Trough Rheumatoid Factor Complement C4 Miscellaneous Test Crossmatch 02/05/17 02/05/17 02/05/17 09:59 11:47 23:44 WBC RBC 2.69 L Hgb 7.2 L Hct 22.5 L MCV MCH 27 L MCHC RDW 18.6 H Plt Count Lymph % (Auto) Harper % (Auto) 9.2 H Lymph # Harper # 0.9 H Baso # Seg Neutrophils % Seg Neuts % (Manual) Lymphocytes % (Manual) Monocytes % (Manual) Eosinophils % (Manual) Basophils % (Manual) Nucleated RBC % Seg Neutrophils # Seg Neutrophils # Man Lymphocytes # (Manual) Monocytes # (Manual) Eosinophils # (Manual) Basophils # (Manual) PT INR Fibrinogen dRVVT Confirm Interp Factor V Activity POC ABG pH POC ABG pCO2 POC ABG pO2 ABG pO2 ABG HCO3 ABG Base Excess ABG Hemoglobin Oxyhemoglobin Sodium Potassium Chloride Carbon Dioxide BUN Creatinine Glucose POC Glucose 130 H 123 H Lactic Acid Calcium Ionized Calcium Phosphorus Magnesium Direct Bilirubin AST ALT Alkaline Phosphatase Lactate Dehydrogenase Troponin T C-Reactive Protein Total Protein Albumin Prealbumin Triglycerides Cholesterol LDL Cholesterol Direct HDL Cholesterol 25-OH Vitamin D Total PTH Intact Urine pH Urine WBC (Auto) Urine Creatinine Urine Total Protein Fluid Total Protein Vancomycin Trough Rheumatoid Factor Complement C4 Miscellaneous Test Crossmatch 02/06/17 02/06/17 02/06/17 04:45 05:58 12:01 WBC RBC Hgb Hct MCV MCH MCHC RDW Plt Count Lymph % (Auto) Harper % (Auto) Lymph # Harper # Baso # Seg Neutrophils % Seg Neuts % (Manual) Lymphocytes % (Manual) Monocytes % (Manual) Eosinophils % (Manual) Basophils % (Manual) Nucleated RBC % Seg Neutrophils # Seg Neutrophils # Man Lymphocytes # (Manual) Monocytes # (Manual) Eosinophils # (Manual) Basophils # (Manual) PT INR Fibrinogen dRVVT Confirm Interp Factor V Activity POC ABG pH POC ABG pCO2 POC ABG pO2 ABG pO2 ABG HCO3 ABG Base Excess ABG Hemoglobin Oxyhemoglobin Sodium Potassium Chloride Carbon Dioxide BUN 101 H Creatinine 2.0 H Glucose 102 H POC Glucose 115 H 132 H Lactic Acid Calcium 10.6 H Ionized Calcium Phosphorus Magnesium Direct Bilirubin AST ALT Alkaline Phosphatase 199 H Lactate Dehydrogenase Troponin T C-Reactive Protein Total Protein Albumin 1.4 L Prealbumin Triglycerides Cholesterol LDL Cholesterol Direct HDL Cholesterol 25-OH Vitamin D Total PTH Intact Urine pH Urine WBC (Auto) Urine Creatinine Urine Total Protein Fluid Total Protein Vancomycin Trough Rheumatoid Factor Complement C4 Miscellaneous Test Crossmatch 02/06/17 02/06/17 02/07/17 17:41 23:32 05:04 WBC RBC Hgb Hct MCV MCH MCHC RDW Plt Count Lymph % (Auto) Harper % (Auto) Lymph # Harper # Baso # Seg Neutrophils % Seg Neuts % (Manual) Lymphocytes % (Manual) Monocytes % (Manual) Eosinophils % (Manual) Basophils % (Manual) Nucleated RBC % Seg Neutrophils # Seg Neutrophils # Man Lymphocytes # (Manual) Monocytes # (Manual) Eosinophils # (Manual) Basophils # (Manual) PT INR Fibrinogen dRVVT Confirm Interp Factor V Activity POC ABG pH POC ABG pCO2 POC ABG pO2 ABG pO2 ABG HCO3 ABG Base Excess ABG Hemoglobin Oxyhemoglobin Sodium Potassium Chloride Carbon Dioxide BUN Creatinine Glucose POC Glucose 134 H 128 H 119 H Lactic Acid Calcium Ionized Calcium Phosphorus Magnesium Direct Bilirubin AST ALT Alkaline Phosphatase Lactate Dehydrogenase Troponin T C-Reactive Protein Total Protein Albumin Prealbumin Triglycerides Cholesterol LDL Cholesterol Direct HDL Cholesterol 25-OH Vitamin D Total PTH Intact Urine pH Urine WBC (Auto) Urine Creatinine Urine Total Protein Fluid Total Protein Vancomycin Trough Rheumatoid Factor Complement C4 Miscellaneous Test Crossmatch 02/07/17 02/07/17 02/07/17 06:30 11:20 17:13 WBC RBC Hgb Hct MCV MCH MCHC RDW Plt Count Lymph % (Auto) Harper % (Auto) Lymph # Harper # Baso # Seg Neutrophils % Seg Neuts % (Manual) Lymphocytes % (Manual) Monocytes % (Manual) Eosinophils % (Manual) Basophils % (Manual) Nucleated RBC % Seg Neutrophils # Seg Neutrophils # Man Lymphocytes # (Manual) Monocytes # (Manual) Eosinophils # (Manual) Basophils # (Manual) PT INR Fibrinogen dRVVT Confirm Interp Factor V Activity POC ABG pH POC ABG pCO2 POC ABG pO2 ABG pO2 ABG HCO3 ABG Base Excess ABG Hemoglobin Oxyhemoglobin Sodium Potassium 3.4 L Chloride Carbon Dioxide BUN 69 H Creatinine 1.5 H Glucose 105 H POC Glucose 117 H 110 H Lactic Acid Calcium Ionized Calcium Phosphorus Magnesium 1.50 L Direct Bilirubin AST ALT Alkaline Phosphatase Lactate Dehydrogenase Troponin T C-Reactive Protein Total Protein Albumin Prealbumin Triglycerides Cholesterol LDL Cholesterol Direct HDL Cholesterol 25-OH Vitamin D Total PTH Intact Urine pH Urine WBC (Auto) Urine Creatinine Urine Total Protein Fluid Total Protein Vancomycin Trough Rheumatoid Factor Complement C4 Miscellaneous Test Crossmatch 02/07/17 02/08/17 02/08/17 20:47 04:00 11:43 WBC RBC Hgb Hct MCV MCH MCHC RDW Plt Count Lymph % (Auto) Harper % (Auto) Lymph # Harper # Baso # Seg Neutrophils % Seg Neuts % (Manual) Lymphocytes % (Manual) Monocytes % (Manual) Eosinophils % (Manual) Basophils % (Manual) Nucleated RBC % Seg Neutrophils # Seg Neutrophils # Man Lymphocytes # (Manual) Monocytes # (Manual) Eosinophils # (Manual) Basophils # (Manual) PT INR Fibrinogen dRVVT Confirm Interp Factor V Activity POC ABG pH POC ABG pCO2 POC ABG pO2 ABG pO2 ABG HCO3 ABG Base Excess ABG Hemoglobin Oxyhemoglobin Sodium Potassium Chloride Carbon Dioxide BUN 86 H Creatinine 1.7 H Glucose POC Glucose 115 H 122 H Lactic Acid Calcium Ionized Calcium Phosphorus Magnesium 1.60 L Direct Bilirubin AST ALT Alkaline Phosphatase Lactate Dehydrogenase Troponin T C-Reactive Protein Total Protein Albumin Prealbumin Triglycerides Cholesterol LDL Cholesterol Direct HDL Cholesterol 25-OH Vitamin D Total PTH Intact Urine pH Urine WBC (Auto) Urine Creatinine Urine Total Protein Fluid Total Protein Vancomycin Trough Rheumatoid Factor Complement C4 Miscellaneous Test Crossmatch 02/08/17 02/09/17 02/09/17 17:36 05:44 11:30 WBC RBC Hgb Hct MCV MCH MCHC RDW Plt Count Lymph % (Auto) Harper % (Auto) Lymph # Harper # Baso # Seg Neutrophils % Seg Neuts % (Manual) Lymphocytes % (Manual) Monocytes % (Manual) Eosinophils % (Manual) Basophils % (Manual) Nucleated RBC % Seg Neutrophils # Seg Neutrophils # Man Lymphocytes # (Manual) Monocytes # (Manual) Eosinophils # (Manual) Basophils # (Manual) PT INR Fibrinogen dRVVT Confirm Interp Factor V Activity POC ABG pH POC ABG pCO2 POC ABG pO2 ABG pO2 ABG HCO3 ABG Base Excess ABG Hemoglobin Oxyhemoglobin Sodium Potassium Chloride Carbon Dioxide BUN Creatinine Glucose POC Glucose 125 H 117 H 120 H Lactic Acid Calcium Ionized Calcium Phosphorus Magnesium Direct Bilirubin AST ALT Alkaline Phosphatase Lactate Dehydrogenase Troponin T C-Reactive Protein Total Protein Albumin Prealbumin Triglycerides Cholesterol LDL Cholesterol Direct HDL Cholesterol 25-OH Vitamin D Total PTH Intact Urine pH Urine WBC (Auto) Urine Creatinine Urine Total Protein Fluid Total Protein Vancomycin Trough Rheumatoid Factor Complement C4 Miscellaneous Test Crossmatch 02/09/17 02/10/17 02/10/17 23:45 05:45 05:50 WBC RBC Hgb Hct MCV MCH MCHC RDW Plt Count Lymph % (Auto) Harper % (Auto) Lymph # Harper # Baso # Seg Neutrophils % Seg Neuts % (Manual) Lymphocytes % (Manual) Monocytes % (Manual) Eosinophils % (Manual) Basophils % (Manual) Nucleated RBC % Seg Neutrophils # Seg Neutrophils # Man Lymphocytes # (Manual) Monocytes # (Manual) Eosinophils # (Manual) Basophils # (Manual) PT INR Fibrinogen dRVVT Confirm Interp Factor V Activity POC ABG pH POC ABG pCO2 POC ABG pO2 ABG pO2 ABG HCO3 ABG Base Excess ABG Hemoglobin Oxyhemoglobin Sodium Potassium Chloride Carbon Dioxide BUN 85 H Creatinine 1.8 H Glucose 109 H POC Glucose 114 H 189 H Lactic Acid Calcium Ionized Calcium Phosphorus Magnesium 2.50 H Direct Bilirubin AST ALT Alkaline Phosphatase Lactate Dehydrogenase Troponin T C-Reactive Protein Total Protein Albumin Prealbumin Triglycerides Cholesterol LDL Cholesterol Direct HDL Cholesterol 25-OH Vitamin D Total PTH Intact Urine pH Urine WBC (Auto) Urine Creatinine Urine Total Protein Fluid Total Protein Vancomycin Trough Rheumatoid Factor Complement C4 Miscellaneous Test Crossmatch 02/10/17 02/10/17 02/10/17 05:51 11:55 17:42 WBC RBC Hgb Hct MCV MCH MCHC RDW Plt Count Lymph % (Auto) Harper % (Auto) Lymph # Harper # Baso # Seg Neutrophils % Seg Neuts % (Manual) Lymphocytes % (Manual) Monocytes % (Manual) Eosinophils % (Manual) Basophils % (Manual) Nucleated RBC % Seg Neutrophils # Seg Neutrophils # Man Lymphocytes # (Manual) Monocytes # (Manual) Eosinophils # (Manual) Basophils # (Manual) PT INR Fibrinogen dRVVT Confirm Interp Factor V Activity POC ABG pH POC ABG pCO2 POC ABG pO2 ABG pO2 ABG HCO3 ABG Base Excess ABG Hemoglobin Oxyhemoglobin Sodium Potassium Chloride Carbon Dioxide BUN Creatinine Glucose POC Glucose 106 H 146 H 132 H Lactic Acid Calcium Ionized Calcium Phosphorus Magnesium Direct Bilirubin AST ALT Alkaline Phosphatase Lactate Dehydrogenase Troponin T C-Reactive Protein Total Protein Albumin Prealbumin Triglycerides Cholesterol LDL Cholesterol Direct HDL Cholesterol 25-OH Vitamin D Total PTH Intact Urine pH Urine WBC (Auto) Urine Creatinine Urine Total Protein Fluid Total Protein Vancomycin Trough Rheumatoid Factor Complement C4 Miscellaneous Test Crossmatch 02/10/17 02/11/17 02/11/17 23:43 04:08 05:34 WBC RBC Hgb Hct MCV MCH MCHC RDW Plt Count Lymph % (Auto) Harper % (Auto) Lymph # Harper # Baso # Seg Neutrophils % Seg Neuts % (Manual) Lymphocytes % (Manual) Monocytes % (Manual) Eosinophils % (Manual) Basophils % (Manual) Nucleated RBC % Seg Neutrophils # Seg Neutrophils # Man Lymphocytes # (Manual) Monocytes # (Manual) Eosinophils # (Manual) Basophils # (Manual) PT INR Fibrinogen dRVVT Confirm Interp Factor V Activity POC ABG pH POC ABG pCO2 POC ABG pO2 ABG pO2 ABG HCO3 ABG Base Excess ABG Hemoglobin Oxyhemoglobin Sodium 136 L Potassium Chloride Carbon Dioxide BUN 65 H Creatinine 1.7 H Glucose 105 H POC Glucose 130 H 113 H Lactic Acid Calcium Ionized Calcium Phosphorus Magnesium Direct Bilirubin AST ALT Alkaline Phosphatase Lactate Dehydrogenase Troponin T C-Reactive Protein Total Protein Albumin Prealbumin Triglycerides Cholesterol LDL Cholesterol Direct HDL Cholesterol 25-OH Vitamin D Total PTH Intact Urine pH Urine WBC (Auto) Urine Creatinine Urine Total Protein Fluid Total Protein Vancomycin Trough Rheumatoid Factor Complement C4 Miscellaneous Test Crossmatch 02/11/17 02/11/17 02/12/17 11:56 23:18 06:19 WBC RBC Hgb Hct MCV MCH MCHC RDW Plt Count Lymph % (Auto) Harper % (Auto) Lymph # Harper # Baso # Seg Neutrophils % Seg Neuts % (Manual) Lymphocytes % (Manual) Monocytes % (Manual) Eosinophils % (Manual) Basophils % (Manual) Nucleated RBC % Seg Neutrophils # Seg Neutrophils # Man Lymphocytes # (Manual) Monocytes # (Manual) Eosinophils # (Manual) Basophils # (Manual) PT INR Fibrinogen dRVVT Confirm Interp Factor V Activity POC ABG pH POC ABG pCO2 POC ABG pO2 ABG pO2 ABG HCO3 ABG Base Excess ABG Hemoglobin Oxyhemoglobin Sodium 136 L Potassium Chloride 97.1 L Carbon Dioxide BUN 93 H Creatinine 2.4 H Glucose POC Glucose 126 H 119 H Lactic Acid Calcium 11.0 H Ionized Calcium Phosphorus Magnesium Direct Bilirubin AST ALT Alkaline Phosphatase Lactate Dehydrogenase Troponin T C-Reactive Protein Total Protein Albumin Prealbumin Triglycerides Cholesterol LDL Cholesterol Direct HDL Cholesterol 25-OH Vitamin D Total PTH Intact Urine pH Urine WBC (Auto) Urine Creatinine Urine Total Protein Fluid Total Protein Vancomycin Trough Rheumatoid Factor Complement C4 Miscellaneous Test Crossmatch 02/12/17 02/12/17 02/12/17 08:00 10:25 11:42 WBC 15.4 H RBC 2.63 L Hgb 6.9 L Hct 22.6 L MCV MCH 26 L MCHC RDW 20.5 H Plt Count Lymph % (Auto) Harper % (Auto) Lymph # Harper # Baso # Seg Neutrophils % Seg Neuts % (Manual) Lymphocytes % (Manual) Monocytes % (Manual) Eosinophils % (Manual) Basophils % (Manual) Nucleated RBC % Seg Neutrophils # Seg Neutrophils # Man Lymphocytes # (Manual) Monocytes # (Manual) Eosinophils # (Manual) Basophils # (Manual) PT INR Fibrinogen dRVVT Confirm Interp Factor V Activity POC ABG pH POC ABG pCO2 POC ABG pO2 ABG pO2 ABG HCO3 ABG Base Excess ABG Hemoglobin Oxyhemoglobin Sodium Potassium Chloride Carbon Dioxide BUN Creatinine Glucose POC Glucose 142 H Lactic Acid Calcium Ionized Calcium Phosphorus Magnesium Direct Bilirubin AST ALT Alkaline Phosphatase Lactate Dehydrogenase Troponin T C-Reactive Protein Total Protein Albumin Prealbumin Triglycerides Cholesterol LDL Cholesterol Direct HDL Cholesterol 25-OH Vitamin D Total PTH Intact Urine pH Urine WBC (Auto) Urine Creatinine Urine Total Protein Fluid Total Protein Vancomycin Trough Rheumatoid Factor Complement C4 Miscellaneous Test Crossmatch See Detail 02/12/17 02/13/17 02/13/17 18:04 00:04 05:00 WBC RBC Hgb Hct MCV MCH MCHC RDW Plt Count Lymph % (Auto) Harper % (Auto) Lymph # Harper # Baso # Seg Neutrophils % Seg Neuts % (Manual) Lymphocytes % (Manual) Monocytes % (Manual) Eosinophils % (Manual) Basophils % (Manual) Nucleated RBC % Seg Neutrophils # Seg Neutrophils # Man Lymphocytes # (Manual) Monocytes # (Manual) Eosinophils # (Manual) Basophils # (Manual) PT INR Fibrinogen dRVVT Confirm Interp Factor V Activity POC ABG pH POC ABG pCO2 POC ABG pO2 ABG pO2 ABG HCO3 ABG Base Excess ABG Hemoglobin Oxyhemoglobin Sodium 134 L Potassium Chloride 96.1 L Carbon Dioxide 20 L BUN 125 H Creatinine 3.0 H Glucose 111 H POC Glucose 135 H 109 H Lactic Acid Calcium 11.3 H Ionized Calcium Phosphorus Magnesium Direct Bilirubin AST ALT Alkaline Phosphatase Lactate Dehydrogenase Troponin T C-Reactive Protein Total Protein Albumin Prealbumin Triglycerides Cholesterol LDL Cholesterol Direct HDL Cholesterol 25-OH Vitamin D Total PTH Intact Urine pH Urine WBC (Auto) Urine Creatinine Urine Total Protein Fluid Total Protein Vancomycin Trough Rheumatoid Factor Complement C4 Miscellaneous Test Crossmatch 02/13/17 02/13/17 02/13/17 05:00 05:28 12:03 WBC 11.9 H RBC 2.92 L Hgb 7.8 L Hct 25.2 L MCV MCH 27 L MCHC RDW 19.3 H Plt Count Lymph % (Auto) Harper % (Auto) Lymph # Harper # Baso # Seg Neutrophils % Seg Neuts % (Manual) Lymphocytes % (Manual) Monocytes % (Manual) Eosinophils % (Manual) Basophils % (Manual) Nucleated RBC % Seg Neutrophils # Seg Neutrophils # Man Lymphocytes # (Manual) Monocytes # (Manual) Eosinophils # (Manual) Basophils # (Manual) PT INR Fibrinogen dRVVT Confirm Interp Factor V Activity POC ABG pH POC ABG pCO2 POC ABG pO2 ABG pO2 ABG HCO3 ABG Base Excess ABG Hemoglobin Oxyhemoglobin Sodium Potassium Chloride Carbon Dioxide BUN Creatinine Glucose POC Glucose 124 H 160 H Lactic Acid Calcium Ionized Calcium Phosphorus Magnesium Direct Bilirubin AST ALT Alkaline Phosphatase Lactate Dehydrogenase Troponin T C-Reactive Protein Total Protein Albumin Prealbumin Triglycerides Cholesterol LDL Cholesterol Direct HDL Cholesterol 25-OH Vitamin D Total PTH Intact Urine pH Urine WBC (Auto) Urine Creatinine Urine Total Protein Fluid Total Protein Vancomycin Trough Rheumatoid Factor Complement C4 Miscellaneous Test Crossmatch 02/13/17 02/14/17 02/14/17 18:09 06:16 08:08 WBC 15.2 H RBC 2.97 L Hgb 8.1 L Hct 26.3 L MCV MCH MCHC RDW 19.3 H Plt Count Lymph % (Auto) Harper % (Auto) Lymph # Harper # Baso # Seg Neutrophils % Seg Neuts % (Manual) Lymphocytes % (Manual) Monocytes % (Manual) Eosinophils % (Manual) Basophils % (Manual) Nucleated RBC % Seg Neutrophils # Seg Neutrophils # Man Lymphocytes # (Manual) Monocytes # (Manual) Eosinophils # (Manual) Basophils # (Manual) PT INR Fibrinogen dRVVT Confirm Interp Factor V Activity POC ABG pH POC ABG pCO2 POC ABG pO2 ABG pO2 ABG HCO3 ABG Base Excess ABG Hemoglobin Oxyhemoglobin Sodium Potassium Chloride Carbon Dioxide BUN Creatinine Glucose POC Glucose 110 H 112 H Lactic Acid Calcium Ionized Calcium Phosphorus Magnesium Direct Bilirubin AST ALT Alkaline Phosphatase Lactate Dehydrogenase Troponin T C-Reactive Protein Total Protein Albumin Prealbumin Triglycerides Cholesterol LDL Cholesterol Direct HDL Cholesterol 25-OH Vitamin D Total PTH Intact Urine pH Urine WBC (Auto) Urine Creatinine Urine Total Protein Fluid Total Protein Vancomycin Trough Rheumatoid Factor Complement C4 Miscellaneous Test Crossmatch 02/14/17 02/14/17 02/15/17 08:08 17:41 04:15 WBC RBC Hgb Hct MCV MCH MCHC RDW Plt Count Lymph % (Auto) Harper % (Auto) Lymph # Harper # Baso # Seg Neutrophils % Seg Neuts % (Manual) Lymphocytes % (Manual) Monocytes % (Manual) Eosinophils % (Manual) Basophils % (Manual) Nucleated RBC % Seg Neutrophils # Seg Neutrophils # Man Lymphocytes # (Manual) Monocytes # (Manual) Eosinophils # (Manual) Basophils # (Manual) PT INR Fibrinogen dRVVT Confirm Interp Factor V Activity POC ABG pH POC ABG pCO2 POC ABG pO2 ABG pO2 ABG HCO3 ABG Base Excess ABG Hemoglobin Oxyhemoglobin Sodium Potassium Chloride Carbon Dioxide 18 L 21 L BUN 79 H 113 H Creatinine 2.1 H 2.8 H Glucose POC Glucose 118 H Lactic Acid Calcium 10.7 H Ionized Calcium Phosphorus 1.70 L D Magnesium 1.60 L Direct Bilirubin AST ALT Alkaline Phosphatase Lactate Dehydrogenase Troponin T C-Reactive Protein Total Protein Albumin Prealbumin Triglycerides Cholesterol LDL Cholesterol Direct HDL Cholesterol 25-OH Vitamin D Total PTH Intact Urine pH Urine WBC (Auto) Urine Creatinine Urine Total Protein Fluid Total Protein Vancomycin Trough Rheumatoid Factor Complement C4 Miscellaneous Test Crossmatch 02/15/17 02/15/17 02/15/17 06:06 11:31 17:52 WBC RBC Hgb Hct MCV MCH MCHC RDW Plt Count Lymph % (Auto) Harper % (Auto) Lymph # Harper # Baso # Seg Neutrophils % Seg Neuts % (Manual) Lymphocytes % (Manual) Monocytes % (Manual) Eosinophils % (Manual) Basophils % (Manual) Nucleated RBC % Seg Neutrophils # Seg Neutrophils # Man Lymphocytes # (Manual) Monocytes # (Manual) Eosinophils # (Manual) Basophils # (Manual) PT INR Fibrinogen dRVVT Confirm Interp Factor V Activity POC ABG pH POC ABG pCO2 POC ABG pO2 ABG pO2 ABG HCO3 ABG Base Excess ABG Hemoglobin Oxyhemoglobin Sodium Potassium Chloride Carbon Dioxide BUN Creatinine Glucose POC Glucose 115 H 129 H 201 H Lactic Acid Calcium Ionized Calcium Phosphorus Magnesium Direct Bilirubin AST ALT Alkaline Phosphatase Lactate Dehydrogenase Troponin T C-Reactive Protein Total Protein Albumin Prealbumin Triglycerides Cholesterol LDL Cholesterol Direct HDL Cholesterol 25-OH Vitamin D Total PTH Intact Urine pH Urine WBC (Auto) Urine Creatinine Urine Total Protein Fluid Total Protein Vancomycin Trough Rheumatoid Factor Complement C4 Miscellaneous Test Crossmatch 02/15/17 02/15/17 02/15/17 19:08 19:08 19:08 WBC RBC Hgb Hct MCV MCH MCHC RDW Plt Count Lymph % (Auto) Harper % (Auto) Lymph # Harper # Baso # Seg Neutrophils % Seg Neuts % (Manual) Lymphocytes % (Manual) Monocytes % (Manual) Eosinophils % (Manual) Basophils % (Manual) Nucleated RBC % Seg Neutrophils # Seg Neutrophils # Man Lymphocytes # (Manual) Monocytes # (Manual) Eosinophils # (Manual) Basophils # (Manual) PT INR Fibrinogen dRVVT Confirm Interp Factor V Activity POC ABG pH POC ABG pCO2 POC ABG pO2 ABG pO2 ABG HCO3 ABG Base Excess ABG Hemoglobin Oxyhemoglobin Sodium Potassium Chloride Carbon Dioxide BUN Creatinine Glucose POC Glucose Lactic Acid Calcium Ionized Calcium 6.0 H Phosphorus Magnesium Direct Bilirubin AST ALT Alkaline Phosphatase Lactate Dehydrogenase Troponin T C-Reactive Protein Total Protein Albumin Prealbumin Triglycerides Cholesterol LDL Cholesterol Direct HDL Cholesterol 25-OH Vitamin D Total 13 L PTH Intact 10.88 L Urine pH Urine WBC (Auto) Urine Creatinine Urine Total Protein Fluid Total Protein Vancomycin Trough Rheumatoid Factor Complement C4 Miscellaneous Test Crossmatch 02/16/17 02/16/17 02/16/17 05:12 06:00 12:39 WBC RBC Hgb Hct MCV MCH MCHC RDW Plt Count Lymph % (Auto) Harper % (Auto) Lymph # Harper # Baso # Seg Neutrophils % Seg Neuts % (Manual) Lymphocytes % (Manual) Monocytes % (Manual) Eosinophils % (Manual) Basophils % (Manual) Nucleated RBC % Seg Neutrophils # Seg Neutrophils # Man Lymphocytes # (Manual) Monocytes # (Manual) Eosinophils # (Manual) Basophils # (Manual) PT INR Fibrinogen dRVVT Confirm Interp Factor V Activity POC ABG pH POC ABG pCO2 POC ABG pO2 ABG pO2 ABG HCO3 ABG Base Excess ABG Hemoglobin Oxyhemoglobin Sodium Potassium Chloride Carbon Dioxide BUN 74 H Creatinine 1.7 H Glucose 102 H POC Glucose 125 H 109 H Lactic Acid Calcium Ionized Calcium Phosphorus 2.10 L D Magnesium Direct Bilirubin AST ALT Alkaline Phosphatase Lactate Dehydrogenase Troponin T C-Reactive Protein Total Protein Albumin Prealbumin Triglycerides Cholesterol LDL Cholesterol Direct HDL Cholesterol 25-OH Vitamin D Total PTH Intact Urine pH Urine WBC (Auto) Urine Creatinine Urine Total Protein Fluid Total Protein Vancomycin Trough Rheumatoid Factor Complement C4 Miscellaneous Test Crossmatch 02/16/17 02/16/17 02/17/17 17:31 23:57 05:30 WBC RBC Hgb Hct MCV MCH MCHC RDW Plt Count Lymph % (Auto) Harper % (Auto) Lymph # Harper # Baso # Seg Neutrophils % Seg Neuts % (Manual) Lymphocytes % (Manual) Monocytes % (Manual) Eosinophils % (Manual) Basophils % (Manual) Nucleated RBC % Seg Neutrophils # Seg Neutrophils # Man Lymphocytes # (Manual) Monocytes # (Manual) Eosinophils # (Manual) Basophils # (Manual) PT INR Fibrinogen dRVVT Confirm Interp Factor V Activity POC ABG pH POC ABG pCO2 POC ABG pO2 ABG pO2 ABG HCO3 ABG Base Excess ABG Hemoglobin Oxyhemoglobin Sodium Potassium Chloride Carbon Dioxide BUN Creatinine Glucose POC Glucose 106 H 127 H 122 H Lactic Acid Calcium Ionized Calcium Phosphorus Magnesium Direct Bilirubin AST ALT Alkaline Phosphatase Lactate Dehydrogenase Troponin T C-Reactive Protein Total Protein Albumin Prealbumin Triglycerides Cholesterol LDL Cholesterol Direct HDL Cholesterol 25-OH Vitamin D Total PTH Intact Urine pH Urine WBC (Auto) Urine Creatinine Urine Total Protein Fluid Total Protein Vancomycin Trough Rheumatoid Factor Complement C4 Miscellaneous Test Crossmatch 02/17/17 02/17/17 02/17/17 06:00 12:17 17:57 WBC RBC Hgb Hct MCV MCH MCHC RDW Plt Count Lymph % (Auto) Harper % (Auto) Lymph # Harper # Baso # Seg Neutrophils % Seg Neuts % (Manual) Lymphocytes % (Manual) Monocytes % (Manual) Eosinophils % (Manual) Basophils % (Manual) Nucleated RBC % Seg Neutrophils # Seg Neutrophils # Man Lymphocytes # (Manual) Monocytes # (Manual) Eosinophils # (Manual) Basophils # (Manual) PT INR Fibrinogen dRVVT Confirm Interp Factor V Activity POC ABG pH POC ABG pCO2 POC ABG pO2 ABG pO2 ABG HCO3 ABG Base Excess ABG Hemoglobin Oxyhemoglobin Sodium Potassium Chloride Carbon Dioxide BUN 94 H Creatinine 2.3 H Glucose 106 H POC Glucose 173 H 140 H Lactic Acid Calcium Ionized Calcium Phosphorus Magnesium Direct Bilirubin AST ALT Alkaline Phosphatase Lactate Dehydrogenase Troponin T C-Reactive Protein Total Protein Albumin Prealbumin Triglycerides Cholesterol LDL Cholesterol Direct HDL Cholesterol 25-OH Vitamin D Total PTH Intact Urine pH Urine WBC (Auto) Urine Creatinine Urine Total Protein Fluid Total Protein Vancomycin Trough Rheumatoid Factor Complement C4 Miscellaneous Test Crossmatch 02/18/17 02/18/17 02/18/17 00:20 05:30 06:14 WBC RBC Hgb Hct MCV MCH MCHC RDW Plt Count Lymph % (Auto) Harper % (Auto) Lymph # Harper # Baso # Seg Neutrophils % Seg Neuts % (Manual) Lymphocytes % (Manual) Monocytes % (Manual) Eosinophils % (Manual) Basophils % (Manual) Nucleated RBC % Seg Neutrophils # Seg Neutrophils # Man Lymphocytes # (Manual) Monocytes # (Manual) Eosinophils # (Manual) Basophils # (Manual) PT INR Fibrinogen dRVVT Confirm Interp Factor V Activity POC ABG pH POC ABG pCO2 POC ABG pO2 ABG pO2 ABG HCO3 ABG Base Excess ABG Hemoglobin Oxyhemoglobin Sodium 136 L Potassium Chloride 97.5 L Carbon Dioxide BUN 73 H Creatinine 1.9 H Glucose POC Glucose 132 H 106 H Lactic Acid Calcium Ionized Calcium Phosphorus Magnesium Direct Bilirubin AST ALT Alkaline Phosphatase Lactate Dehydrogenase Troponin T C-Reactive Protein Total Protein Albumin Prealbumin Triglycerides Cholesterol LDL Cholesterol Direct HDL Cholesterol 25-OH Vitamin D Total PTH Intact Urine pH Urine WBC (Auto) Urine Creatinine Urine Total Protein Fluid Total Protein Vancomycin Trough Rheumatoid Factor Complement C4 Miscellaneous Test Crossmatch 02/18/17 02/18/17 02/18/17 09:51 11:32 17:59 WBC 13.1 H RBC 2.77 L Hgb 7.6 L Hct 23.9 L MCV MCH MCHC RDW 19.0 H Plt Count Lymph % (Auto) Harper % (Auto) 11.1 H Lymph # Harper # 1.5 H Baso # Seg Neutrophils % Seg Neuts % (Manual) Lymphocytes % (Manual) Monocytes % (Manual) Eosinophils % (Manual) Basophils % (Manual) Nucleated RBC % Seg Neutrophils # 9.1 H Seg Neutrophils # Man Lymphocytes # (Manual) Monocytes # (Manual) Eosinophils # (Manual) Basophils # (Manual) PT INR Fibrinogen dRVVT Confirm Interp Factor V Activity POC ABG pH POC ABG pCO2 POC ABG pO2 ABG pO2 ABG HCO3 ABG Base Excess ABG Hemoglobin Oxyhemoglobin Sodium Potassium Chloride Carbon Dioxide BUN Creatinine Glucose POC Glucose 123 H 119 H Lactic Acid Calcium Ionized Calcium Phosphorus Magnesium Direct Bilirubin AST ALT Alkaline Phosphatase Lactate Dehydrogenase Troponin T C-Reactive Protein Total Protein Albumin Prealbumin Triglycerides Cholesterol LDL Cholesterol Direct HDL Cholesterol 25-OH Vitamin D Total PTH Intact Urine pH Urine WBC (Auto) Urine Creatinine Urine Total Protein Fluid Total Protein Vancomycin Trough Rheumatoid Factor Complement C4 Miscellaneous Test Crossmatch 02/18/17 02/19/17 02/19/17 23:47 05:36 09:45 WBC RBC Hgb Hct MCV MCH 27 L MCHC RDW 19.2 H Plt Count Lymph % (Auto) Harper % (Auto) Lymph # Harper # Baso # Seg Neutrophils % Seg Neuts % (Manual) Lymphocytes % (Manual) Monocytes % (Manual) Eosinophils % (Manual) Basophils % (Manual) Nucleated RBC % Seg Neutrophils # Seg Neutrophils # Man Lymphocytes # (Manual) Monocytes # (Manual) Eosinophils # (Manual) Basophils # (Manual) PT INR Fibrinogen dRVVT Confirm Interp Factor V Activity POC ABG pH POC ABG pCO2 POC ABG pO2 ABG pO2 ABG HCO3 ABG Base Excess ABG Hemoglobin Oxyhemoglobin Sodium Potassium Chloride Carbon Dioxide BUN Creatinine Glucose POC Glucose 110 H 121 H Lactic Acid Calcium Ionized Calcium Phosphorus Magnesium Direct Bilirubin AST ALT Alkaline Phosphatase Lactate Dehydrogenase Troponin T C-Reactive Protein Total Protein Albumin Prealbumin Triglycerides Cholesterol LDL Cholesterol Direct HDL Cholesterol 25-OH Vitamin D Total PTH Intact Urine pH Urine WBC (Auto) Urine Creatinine Urine Total Protein Fluid Total Protein Vancomycin Trough Rheumatoid Factor Complement C4 Miscellaneous Test Crossmatch 02/19/17 02/20/17 02/20/17 09:45 00:10 06:15 WBC RBC Hgb Hct MCV MCH MCHC RDW Plt Count Lymph % (Auto) Harper % (Auto) Lymph # Harper # Baso # Seg Neutrophils % Seg Neuts % (Manual) Lymphocytes % (Manual) Monocytes % (Manual) Eosinophils % (Manual) Basophils % (Manual) Nucleated RBC % Seg Neutrophils # Seg Neutrophils # Man Lymphocytes # (Manual) Monocytes # (Manual) Eosinophils # (Manual) Basophils # (Manual) PT INR Fibrinogen dRVVT Confirm Interp Factor V Activity POC ABG pH POC ABG pCO2 POC ABG pO2 ABG pO2 ABG HCO3 ABG Base Excess ABG Hemoglobin Oxyhemoglobin Sodium 136 L Potassium 5.1 H Chloride 97.6 L Carbon Dioxide 20 L 18 L BUN 110 H 135 H Creatinine 2.6 H 3.2 H Glucose 106 H 110 H POC Glucose 117 H Lactic Acid Calcium Ionized Calcium Phosphorus 4.70 H D 5.60 H Magnesium Direct Bilirubin AST ALT Alkaline Phosphatase Lactate Dehydrogenase Troponin T C-Reactive Protein Total Protein Albumin Prealbumin Triglycerides Cholesterol LDL Cholesterol Direct HDL Cholesterol 25-OH Vitamin D Total PTH Intact Urine pH Urine WBC (Auto) Urine Creatinine Urine Total Protein Fluid Total Protein Vancomycin Trough Rheumatoid Factor Complement C4 Miscellaneous Test Crossmatch 02/20/17 02/20/17 02/21/17 11:30 17:51 00:14 WBC RBC Hgb Hct MCV MCH MCHC RDW Plt Count Lymph % (Auto) Harper % (Auto) Lymph # Harper # Baso # Seg Neutrophils % Seg Neuts % (Manual) Lymphocytes % (Manual) Monocytes % (Manual) Eosinophils % (Manual) Basophils % (Manual) Nucleated RBC % Seg Neutrophils # Seg Neutrophils # Man Lymphocytes # (Manual) Monocytes # (Manual) Eosinophils # (Manual) Basophils # (Manual) PT INR Fibrinogen dRVVT Confirm Interp Factor V Activity POC ABG pH POC ABG pCO2 POC ABG pO2 ABG pO2 ABG HCO3 ABG Base Excess ABG Hemoglobin Oxyhemoglobin Sodium Potassium Chloride Carbon Dioxide BUN Creatinine Glucose POC Glucose 173 H 133 H 125 H Lactic Acid Calcium Ionized Calcium Phosphorus Magnesium Direct Bilirubin AST ALT Alkaline Phosphatase Lactate Dehydrogenase Troponin T C-Reactive Protein Total Protein Albumin Prealbumin Triglycerides Cholesterol LDL Cholesterol Direct HDL Cholesterol 25-OH Vitamin D Total PTH Intact Urine pH Urine WBC (Auto) Urine Creatinine Urine Total Protein Fluid Total Protein Vancomycin Trough Rheumatoid Factor Complement C4 Miscellaneous Test Crossmatch 02/21/17 02/21/17 02/21/17 04:09 05:03 11:58 WBC RBC Hgb Hct MCV MCH MCHC RDW Plt Count Lymph % (Auto) Harper % (Auto) Lymph # Harper # Baso # Seg Neutrophils % Seg Neuts % (Manual) Lymphocytes % (Manual) Monocytes % (Manual) Eosinophils % (Manual) Basophils % (Manual) Nucleated RBC % Seg Neutrophils # Seg Neutrophils # Man Lymphocytes # (Manual) Monocytes # (Manual) Eosinophils # (Manual) Basophils # (Manual) PT INR Fibrinogen dRVVT Confirm Interp Factor V Activity POC ABG pH POC ABG pCO2 POC ABG pO2 ABG pO2 ABG HCO3 ABG Base Excess ABG Hemoglobin Oxyhemoglobin Sodium 135 L Potassium Chloride Carbon Dioxide 20 L BUN 76 H Creatinine 2.0 H Glucose 125 H POC Glucose 134 H 139 H Lactic Acid Calcium Ionized Calcium Phosphorus Magnesium Direct Bilirubin AST ALT Alkaline Phosphatase Lactate Dehydrogenase Troponin T C-Reactive Protein Total Protein Albumin Prealbumin Triglycerides Cholesterol LDL Cholesterol Direct HDL Cholesterol 25-OH Vitamin D Total PTH Intact Urine pH Urine WBC (Auto) Urine Creatinine Urine Total Protein Fluid Total Protein Vancomycin Trough Rheumatoid Factor Complement C4 Miscellaneous Test Crossmatch 02/21/17 02/21/17 02/22/17 17:16 23:41 04:10 WBC RBC Hgb Hct MCV MCH MCHC RDW Plt Count Lymph % (Auto) Harper % (Auto) Lymph # Harper # Baso # Seg Neutrophils % Seg Neuts % (Manual) Lymphocytes % (Manual) Monocytes % (Manual) Eosinophils % (Manual) Basophils % (Manual) Nucleated RBC % Seg Neutrophils # Seg Neutrophils # Man Lymphocytes # (Manual) Monocytes # (Manual) Eosinophils # (Manual) Basophils # (Manual) PT INR Fibrinogen dRVVT Confirm Interp Factor V Activity POC ABG pH POC ABG pCO2 POC ABG pO2 ABG pO2 ABG HCO3 ABG Base Excess ABG Hemoglobin Oxyhemoglobin Sodium 135 L Potassium Chloride 97.7 L Carbon Dioxide 21 L BUN 101 H Creatinine 2.5 H Glucose 116 H POC Glucose 120 H 128 H Lactic Acid Calcium Ionized Calcium Phosphorus Magnesium Direct Bilirubin AST ALT Alkaline Phosphatase Lactate Dehydrogenase Troponin T C-Reactive Protein Total Protein Albumin 1.3 L Prealbumin Triglycerides Cholesterol LDL Cholesterol Direct HDL Cholesterol 25-OH Vitamin D Total PTH Intact Urine pH Urine WBC (Auto) Urine Creatinine Urine Total Protein Fluid Total Protein Vancomycin Trough Rheumatoid Factor Complement C4 Miscellaneous Test Crossmatch 02/22/17 02/22/1718 06:03 11:38 18:19 WBC RBC Hgb Hct MCV MCH MCHC RDW Plt Count Lymph % (Auto) Harper % (Auto) Lymph # Harper # Baso # Seg Neutrophils % Seg Neuts % (Manual) Lymphocytes % (Manual) Monocytes % (Manual) Eosinophils % (Manual) Basophils % (Manual) Nucleated RBC % Seg Neutrophils # Seg Neutrophils # Man Lymphocytes # (Manual) Monocytes # (Manual) Eosinophils # (Manual) Basophils # (Manual) PT INR Fibrinogen dRVVT Confirm Interp Factor V Activity POC ABG pH POC ABG pCO2 POC ABG pO2 ABG pO2 ABG HCO3 ABG Base Excess ABG Hemoglobin Oxyhemoglobin Sodium Potassium Chloride Carbon Dioxide BUN Creatinine Glucose POC Glucose 126 H 147 H 121 H Lactic Acid Calcium Ionized Calcium Phosphorus Magnesium Direct Bilirubin AST ALT Alkaline Phosphatase Lactate Dehydrogenase Troponin T C-Reactive Protein Total Protein Albumin Prealbumin Triglycerides Cholesterol LDL Cholesterol Direct HDL Cholesterol 25-OH Vitamin D Total PTH Intact Urine pH Urine WBC (Auto) Urine Creatinine Urine Total Protein Fluid Total Protein Vancomycin Trough Rheumatoid Factor Complement C4 Miscellaneous Test Crossmatch 02/23/17 02/23/17 02/23/17 05:00 05:46 12:27 WBC RBC Hgb Hct MCV MCH MCHC RDW Plt Count Lymph % (Auto) Harper % (Auto) Lymph # Harper # Baso # Seg Neutrophils % Seg Neuts % (Manual) Lymphocytes % (Manual) Monocytes % (Manual) Eosinophils % (Manual) Basophils % (Manual) Nucleated RBC % Seg Neutrophils # Seg Neutrophils # Man Lymphocytes # (Manual) Monocytes # (Manual) Eosinophils # (Manual) Basophils # (Manual) PT INR Fibrinogen dRVVT Confirm Interp Factor V Activity POC ABG pH POC ABG pCO2 POC ABG pO2 ABG pO2 ABG HCO3 ABG Base Excess ABG Hemoglobin Oxyhemoglobin Sodium 136 L Potassium Chloride 97.1 L Carbon Dioxide BUN 50 H Creatinine 1.5 H Glucose POC Glucose 110 H 115 H Lactic Acid Calcium 8.1 L Ionized Calcium Phosphorus 1.90 L D Magnesium Direct Bilirubin AST ALT Alkaline Phosphatase Lactate Dehydrogenase Troponin T C-Reactive Protein Total Protein Albumin Prealbumin Triglycerides Cholesterol LDL Cholesterol Direct HDL Cholesterol 25-OH Vitamin D Total PTH Intact Urine pH Urine WBC (Auto) Urine Creatinine Urine Total Protein Fluid Total Protein Vancomycin Trough Rheumatoid Factor Complement C4 Miscellaneous Test Crossmatch 02/23/17 02/23/17 02/24/17 18:02 23:18 05:04 WBC RBC Hgb Hct MCV MCH MCHC RDW Plt Count Lymph % (Auto) Harper % (Auto) Lymph # Harper # Baso # Seg Neutrophils % Seg Neuts % (Manual) Lymphocytes % (Manual) Monocytes % (Manual) Eosinophils % (Manual) Basophils % (Manual) Nucleated RBC % Seg Neutrophils # Seg Neutrophils # Man Lymphocytes # (Manual) Monocytes # (Manual) Eosinophils # (Manual) Basophils # (Manual) PT INR Fibrinogen dRVVT Confirm Interp Factor V Activity POC ABG pH POC ABG pCO2 POC ABG pO2 ABG pO2 ABG HCO3 ABG Base Excess ABG Hemoglobin Oxyhemoglobin Sodium Potassium Chloride Carbon Dioxide BUN Creatinine Glucose POC Glucose 111 H 126 H 121 H Lactic Acid Calcium Ionized Calcium Phosphorus Magnesium Direct Bilirubin AST ALT Alkaline Phosphatase Lactate Dehydrogenase Troponin T C-Reactive Protein Total Protein Albumin Prealbumin Triglycerides Cholesterol LDL Cholesterol Direct HDL Cholesterol 25-OH Vitamin D Total PTH Intact Urine pH Urine WBC (Auto) Urine Creatinine Urine Total Protein Fluid Total Protein Vancomycin Trough Rheumatoid Factor Complement C4 Miscellaneous Test Crossmatch 02/24/17 02/24/17 02/24/17 05:20 10:05 11:34 WBC RBC 2.95 L Hgb 8.4 L Hct 25.7 L MCV MCH MCHC RDW 20.8 H Plt Count Lymph % (Auto) Harper % (Auto) Lymph # Harper # Baso # Seg Neutrophils % 71.8 H Seg Neuts % (Manual) Lymphocytes % (Manual) Monocytes % (Manual) Eosinophils % (Manual) Basophils % (Manual) Nucleated RBC % Seg Neutrophils # Seg Neutrophils # Man Lymphocytes # (Manual) Monocytes # (Manual) Eosinophils # (Manual) Basophils # (Manual) PT INR Fibrinogen dRVVT Confirm Interp Factor V Activity POC ABG pH POC ABG pCO2 POC ABG pO2 ABG pO2 ABG HCO3 ABG Base Excess ABG Hemoglobin Oxyhemoglobin Sodium 136 L Potassium Chloride 95.5 L Carbon Dioxide BUN 76 H Creatinine 2.2 H Glucose 109 H POC Glucose 123 H Lactic Acid Calcium Ionized Calcium Phosphorus Magnesium Direct Bilirubin AST ALT Alkaline Phosphatase Lactate Dehydrogenase Troponin T C-Reactive Protein Total Protein Albumin Prealbumin Triglycerides Cholesterol LDL Cholesterol Direct HDL Cholesterol 25-OH Vitamin D Total PTH Intact Urine pH Urine WBC (Auto) Urine Creatinine Urine Total Protein Fluid Total Protein Vancomycin Trough Rheumatoid Factor Complement C4 Miscellaneous Test Crossmatch 02/24/17 02/24/17 02/25/17 17:43 23:02 05:00 WBC RBC Hgb Hct MCV MCH MCHC RDW Plt Count Lymph % (Auto) Harper % (Auto) Lymph # Harper # Baso # Seg Neutrophils % Seg Neuts % (Manual) Lymphocytes % (Manual) Monocytes % (Manual) Eosinophils % (Manual) Basophils % (Manual) Nucleated RBC % Seg Neutrophils # Seg Neutrophils # Man Lymphocytes # (Manual) Monocytes # (Manual) Eosinophils # (Manual) Basophils # (Manual) PT INR Fibrinogen dRVVT Confirm Interp Factor V Activity POC ABG pH POC ABG pCO2 POC ABG pO2 ABG pO2 ABG HCO3 ABG Base Excess ABG Hemoglobin Oxyhemoglobin Sodium Potassium Chloride 96.8 L Carbon Dioxide BUN 94 H Creatinine 2.8 H Glucose 118 H POC Glucose 128 H 144 H Lactic Acid Calcium Ionized Calcium Phosphorus Magnesium Direct Bilirubin AST ALT Alkaline Phosphatase Lactate Dehydrogenase Troponin T C-Reactive Protein Total Protein Albumin Prealbumin Triglycerides Cholesterol LDL Cholesterol Direct HDL Cholesterol 25-OH Vitamin D Total PTH Intact Urine pH Urine WBC (Auto) Urine Creatinine Urine Total Protein Fluid Total Protein Vancomycin Trough Rheumatoid Factor Complement C4 Miscellaneous Test Crossmatch 02/25/17 02/25/17 02/25/17 05:32 11:44 18:18 WBC RBC Hgb Hct MCV MCH MCHC RDW Plt Count Lymph % (Auto) Harper % (Auto) Lymph # Harper # Baso # Seg Neutrophils % Seg Neuts % (Manual) Lymphocytes % (Manual) Monocytes % (Manual) Eosinophils % (Manual) Basophils % (Manual) Nucleated RBC % Seg Neutrophils # Seg Neutrophils # Man Lymphocytes # (Manual) Monocytes # (Manual) Eosinophils # (Manual) Basophils # (Manual) PT INR Fibrinogen dRVVT Confirm Interp Factor V Activity POC ABG pH POC ABG pCO2 POC ABG pO2 ABG pO2 ABG HCO3 ABG Base Excess ABG Hemoglobin Oxyhemoglobin Sodium Potassium Chloride Carbon Dioxide BUN Creatinine Glucose POC Glucose 118 H 106 H 210 H Lactic Acid Calcium Ionized Calcium Phosphorus Magnesium Direct Bilirubin AST ALT Alkaline Phosphatase Lactate Dehydrogenase Troponin T C-Reactive Protein Total Protein Albumin Prealbumin Triglycerides Cholesterol LDL Cholesterol Direct HDL Cholesterol 25-OH Vitamin D Total PTH Intact Urine pH Urine WBC (Auto) Urine Creatinine Urine Total Protein Fluid Total Protein Vancomycin Trough Rheumatoid Factor Complement C4 Miscellaneous Test Crossmatch 02/26/17 02/26/17 02/26/17 00:07 05:14 12:07 WBC RBC Hgb Hct MCV MCH MCHC RDW Plt Count Lymph % (Auto) Harper % (Auto) Lymph # Harper # Baso # Seg Neutrophils % Seg Neuts % (Manual) Lymphocytes % (Manual) Monocytes % (Manual) Eosinophils % (Manual) Basophils % (Manual) Nucleated RBC % Seg Neutrophils # Seg Neutrophils # Man Lymphocytes # (Manual) Monocytes # (Manual) Eosinophils # (Manual) Basophils # (Manual) PT INR Fibrinogen dRVVT Confirm Interp Factor V Activity POC ABG pH POC ABG pCO2 POC ABG pO2 ABG pO2 ABG HCO3 ABG Base Excess ABG Hemoglobin Oxyhemoglobin Sodium Potassium Chloride Carbon Dioxide BUN Creatinine Glucose POC Glucose 136 H 142 H 132 H Lactic Acid Calcium Ionized Calcium Phosphorus Magnesium Direct Bilirubin AST ALT Alkaline Phosphatase Lactate Dehydrogenase Troponin T C-Reactive Protein Total Protein Albumin Prealbumin Triglycerides Cholesterol LDL Cholesterol Direct HDL Cholesterol 25-OH Vitamin D Total PTH Intact Urine pH Urine WBC (Auto) Urine Creatinine Urine Total Protein Fluid Total Protein Vancomycin Trough Rheumatoid Factor Complement C4 Miscellaneous Test Crossmatch 02/26/17 02/26/17 02/27/17 18:35 23:54 06:25 WBC RBC Hgb Hct MCV MCH MCHC RDW Plt Count Lymph % (Auto) Harper % (Auto) Lymph # Harper # Baso # Seg Neutrophils % Seg Neuts % (Manual) Lymphocytes % (Manual) Monocytes % (Manual) Eosinophils % (Manual) Basophils % (Manual) Nucleated RBC % Seg Neutrophils # Seg Neutrophils # Man Lymphocytes # (Manual) Monocytes # (Manual) Eosinophils # (Manual) Basophils # (Manual) PT INR Fibrinogen dRVVT Confirm Interp Factor V Activity POC ABG pH POC ABG pCO2 POC ABG pO2 ABG pO2 ABG HCO3 ABG Base Excess ABG Hemoglobin Oxyhemoglobin Sodium Potassium Chloride Carbon Dioxide BUN Creatinine Glucose POC Glucose 155 H 150 H 138 H Lactic Acid Calcium Ionized Calcium Phosphorus Magnesium Direct Bilirubin AST ALT Alkaline Phosphatase Lactate Dehydrogenase Troponin T C-Reactive Protein Total Protein Albumin Prealbumin Triglycerides Cholesterol LDL Cholesterol Direct HDL Cholesterol 25-OH Vitamin D Total PTH Intact Urine pH Urine WBC (Auto) Urine Creatinine Urine Total Protein Fluid Total Protein Vancomycin Trough Rheumatoid Factor Complement C4 Miscellaneous Test Crossmatch 02/27/17 02/27/17 02/27/17 08:50 11:50 17:38 WBC RBC Hgb Hct MCV MCH MCHC RDW Plt Count Lymph % (Auto) Harper % (Auto) Lymph # Harper # Baso # Seg Neutrophils % Seg Neuts % (Manual) Lymphocytes % (Manual) Monocytes % (Manual) Eosinophils % (Manual) Basophils % (Manual) Nucleated RBC % Seg Neutrophils # Seg Neutrophils # Man Lymphocytes # (Manual) Monocytes # (Manual) Eosinophils # (Manual) Basophils # (Manual) PT INR Fibrinogen dRVVT Confirm Interp Factor V Activity POC ABG pH POC ABG pCO2 POC ABG pO2 ABG pO2 ABG HCO3 ABG Base Excess ABG Hemoglobin Oxyhemoglobin Sodium Potassium 3.2 L Chloride Carbon Dioxide BUN 95 H Creatinine 2.7 H Glucose 179 H POC Glucose 150 H 133 H Lactic Acid Calcium Ionized Calcium Phosphorus Magnesium Direct Bilirubin AST ALT Alkaline Phosphatase Lactate Dehydrogenase Troponin T C-Reactive Protein Total Protein Albumin Prealbumin Triglycerides Cholesterol LDL Cholesterol Direct HDL Cholesterol 25-OH Vitamin D Total PTH Intact Urine pH Urine WBC (Auto) Urine Creatinine Urine Total Protein Fluid Total Protein Vancomycin Trough Rheumatoid Factor Complement C4 Miscellaneous Test Crossmatch 02/27/17 02/28/17 02/28/17 23:55 05:23 06:10 WBC RBC Hgb Hct MCV MCH MCHC RDW Plt Count Lymph % (Auto) Harper % (Auto) Lymph # Harper # Baso # Seg Neutrophils % Seg Neuts % (Manual) Lymphocytes % (Manual) Monocytes % (Manual) Eosinophils % (Manual) Basophils % (Manual) Nucleated RBC % Seg Neutrophils # Seg Neutrophils # Man Lymphocytes # (Manual) Monocytes # (Manual) Eosinophils # (Manual) Basophils # (Manual) PT INR Fibrinogen dRVVT Confirm Interp Factor V Activity POC ABG pH POC ABG pCO2 POC ABG pO2 ABG pO2 ABG HCO3 ABG Base Excess ABG Hemoglobin Oxyhemoglobin Sodium 134 L Potassium 3.0 L Chloride 94.9 L Carbon Dioxide BUN 53 H Creatinine 1.9 H Glucose 138 H POC Glucose 134 H 164 H Lactic Acid Calcium Ionized Calcium Phosphorus 2.00 L D Magnesium Direct Bilirubin AST ALT Alkaline Phosphatase Lactate Dehydrogenase Troponin T C-Reactive Protein Total Protein Albumin Prealbumin Triglycerides Cholesterol LDL Cholesterol Direct HDL Cholesterol 25-OH Vitamin D Total PTH Intact Urine pH Urine WBC (Auto) Urine Creatinine Urine Total Protein Fluid Total Protein Vancomycin Trough Rheumatoid Factor Complement C4 Miscellaneous Test Crossmatch 02/28/17 02/28/17 02/28/17 12:18 17:54 23:47 WBC RBC Hgb Hct MCV MCH MCHC RDW Plt Count Lymph % (Auto) Harper % (Auto) Lymph # Harper # Baso # Seg Neutrophils % Seg Neuts % (Manual) Lymphocytes % (Manual) Monocytes % (Manual) Eosinophils % (Manual) Basophils % (Manual) Nucleated RBC % Seg Neutrophils # Seg Neutrophils # Man Lymphocytes # (Manual) Monocytes # (Manual) Eosinophils # (Manual) Basophils # (Manual) PT INR Fibrinogen dRVVT Confirm Interp Factor V Activity POC ABG pH POC ABG pCO2 POC ABG pO2 ABG pO2 ABG HCO3 ABG Base Excess ABG Hemoglobin Oxyhemoglobin Sodium Potassium Chloride Carbon Dioxide BUN Creatinine Glucose POC Glucose 135 H 140 H 144 H Lactic Acid Calcium Ionized Calcium Phosphorus Magnesium Direct Bilirubin AST ALT Alkaline Phosphatase Lactate Dehydrogenase Troponin T C-Reactive Protein Total Protein Albumin Prealbumin Triglycerides Cholesterol LDL Cholesterol Direct HDL Cholesterol 25-OH Vitamin D Total PTH Intact Urine pH Urine WBC (Auto) Urine Creatinine Urine Total Protein Fluid Total Protein Vancomycin Trough Rheumatoid Factor Complement C4 Miscellaneous Test Crossmatch 03/01/17 03/01/17 03/01/17 04:00 12:02 17:13 WBC RBC Hgb Hct MCV MCH MCHC RDW Plt Count Lymph % (Auto) Harper % (Auto) Lymph # Harper # Baso # Seg Neutrophils % Seg Neuts % (Manual) Lymphocytes % (Manual) Monocytes % (Manual) Eosinophils % (Manual) Basophils % (Manual) Nucleated RBC % Seg Neutrophils # Seg Neutrophils # Man Lymphocytes # (Manual) Monocytes # (Manual) Eosinophils # (Manual) Basophils # (Manual) PT INR Fibrinogen dRVVT Confirm Interp Factor V Activity POC ABG pH POC ABG pCO2 POC ABG pO2 ABG pO2 ABG HCO3 ABG Base Excess ABG Hemoglobin Oxyhemoglobin Sodium Potassium 3.0 L Chloride 97.0 L Carbon Dioxide BUN 81 H Creatinine 2.6 H Glucose 121 H POC Glucose 165 H 126 H Lactic Acid Calcium Ionized Calcium Phosphorus Magnesium Direct Bilirubin AST ALT Alkaline Phosphatase Lactate Dehydrogenase Troponin T C-Reactive Protein Total Protein Albumin Prealbumin Triglycerides Cholesterol LDL Cholesterol Direct HDL Cholesterol 25-OH Vitamin D Total PTH Intact Urine pH Urine WBC (Auto) Urine Creatinine Urine Total Protein Fluid Total Protein Vancomycin Trough Rheumatoid Factor Complement C4 Miscellaneous Test Crossmatch 03/02/17 03/02/17 03/02/17 00:10 03:05 05:20 WBC RBC Hgb Hct MCV MCH MCHC RDW Plt Count Lymph % (Auto) Harper % (Auto) Lymph # Harper # Baso # Seg Neutrophils % Seg Neuts % (Manual) Lymphocytes % (Manual) Monocytes % (Manual) Eosinophils % (Manual) Basophils % (Manual) Nucleated RBC % Seg Neutrophils # Seg Neutrophils # Man Lymphocytes # (Manual) Monocytes # (Manual) Eosinophils # (Manual) Basophils # (Manual) PT INR Fibrinogen dRVVT Confirm Interp Factor V Activity POC ABG pH POC ABG pCO2 POC ABG pO2 ABG pO2 ABG HCO3 ABG Base Excess ABG Hemoglobin Oxyhemoglobin Sodium Potassium 3.0 L Chloride Carbon Dioxide BUN 41 H Creatinine 1.6 H Glucose 130 H POC Glucose 129 H 173 H Lactic Acid Calcium Ionized Calcium Phosphorus 1.70 L D Magnesium 1.40 L Direct Bilirubin AST ALT Alkaline Phosphatase Lactate Dehydrogenase Troponin T C-Reactive Protein Total Protein Albumin Prealbumin Triglycerides Cholesterol LDL Cholesterol Direct HDL Cholesterol 25-OH Vitamin D Total PTH Intact Urine pH Urine WBC (Auto) Urine Creatinine Urine Total Protein Fluid Total Protein Vancomycin Trough Rheumatoid Factor Complement C4 Miscellaneous Test Crossmatch 03/02/17 03/02/17 03/02/17 11:49 16:38 23:46 WBC RBC Hgb Hct MCV MCH MCHC RDW Plt Count Lymph % (Auto) Harper % (Auto) Lymph # Harper # Baso # Seg Neutrophils % Seg Neuts % (Manual) Lymphocytes % (Manual) Monocytes % (Manual) Eosinophils % (Manual) Basophils % (Manual) Nucleated RBC % Seg Neutrophils # Seg Neutrophils # Man Lymphocytes # (Manual) Monocytes # (Manual) Eosinophils # (Manual) Basophils # (Manual) PT INR Fibrinogen dRVVT Confirm Interp Factor V Activity POC ABG pH POC ABG pCO2 POC ABG pO2 ABG pO2 ABG HCO3 ABG Base Excess ABG Hemoglobin Oxyhemoglobin Sodium Potassium Chloride Carbon Dioxide BUN Creatinine Glucose POC Glucose 129 H 141 H 119 H Lactic Acid Calcium Ionized Calcium Phosphorus Magnesium Direct Bilirubin AST ALT Alkaline Phosphatase Lactate Dehydrogenase Troponin T C-Reactive Protein Total Protein Albumin Prealbumin Triglycerides Cholesterol LDL Cholesterol Direct HDL Cholesterol 25-OH Vitamin D Total PTH Intact Urine pH Urine WBC (Auto) Urine Creatinine Urine Total Protein Fluid Total Protein Vancomycin Trough Rheumatoid Factor Complement C4 Miscellaneous Test Crossmatch 03/03/17 03/03/17 03/03/17 04:00 11:59 18:08 WBC RBC Hgb Hct MCV MCH MCHC RDW Plt Count Lymph % (Auto) Harper % (Auto) Lymph # Harper # Baso # Seg Neutrophils % Seg Neuts % (Manual) Lymphocytes % (Manual) Monocytes % (Manual) Eosinophils % (Manual) Basophils % (Manual) Nucleated RBC % Seg Neutrophils # Seg Neutrophils # Man Lymphocytes # (Manual) Monocytes # (Manual) Eosinophils # (Manual) Basophils # (Manual) PT INR Fibrinogen dRVVT Confirm Interp Factor V Activity POC ABG pH POC ABG pCO2 POC ABG pO2 ABG pO2 ABG HCO3 ABG Base Excess ABG Hemoglobin Oxyhemoglobin Sodium Potassium Chloride Carbon Dioxide BUN 70 H Creatinine 2.3 H Glucose POC Glucose 125 H 131 H Lactic Acid Calcium Ionized Calcium Phosphorus Magnesium Direct Bilirubin AST ALT Alkaline Phosphatase Lactate Dehydrogenase Troponin T C-Reactive Protein Total Protein Albumin Prealbumin Triglycerides Cholesterol LDL Cholesterol Direct HDL Cholesterol 25-OH Vitamin D Total PTH Intact Urine pH Urine WBC (Auto) Urine Creatinine Urine Total Protein Fluid Total Protein Vancomycin Trough Rheumatoid Factor Complement C4 Miscellaneous Test Crossmatch 03/03/17 03/03/17 03/04/17 20:17 23:43 05:21 WBC RBC Hgb Hct MCV MCH MCHC RDW Plt Count Lymph % (Auto) Harper % (Auto) Lymph # Harper # Baso # Seg Neutrophils % Seg Neuts % (Manual) Lymphocytes % (Manual) Monocytes % (Manual) Eosinophils % (Manual) Basophils % (Manual) Nucleated RBC % Seg Neutrophils # Seg Neutrophils # Man Lymphocytes # (Manual) Monocytes # (Manual) Eosinophils # (Manual) Basophils # (Manual) PT INR Fibrinogen dRVVT Confirm Interp Factor V Activity POC ABG pH 7.518 H POC ABG pCO2 28.8 L POC ABG pO2 61 L ABG pO2 ABG HCO3 ABG Base Excess ABG Hemoglobin Oxyhemoglobin Sodium Potassium Chloride Carbon Dioxide BUN Creatinine Glucose POC Glucose 122 H 130 H Lactic Acid Calcium Ionized Calcium Phosphorus Magnesium Direct Bilirubin AST ALT Alkaline Phosphatase Lactate Dehydrogenase Troponin T C-Reactive Protein Total Protein Albumin Prealbumin Triglycerides Cholesterol LDL Cholesterol Direct HDL Cholesterol 25-OH Vitamin D Total PTH Intact Urine pH Urine WBC (Auto) Urine Creatinine Urine Total Protein Fluid Total Protein Vancomycin Trough Rheumatoid Factor Complement C4 Miscellaneous Test Crossmatch 03/04/17 03/05/17 03/06/17 06:10 06:15 03:52 WBC RBC Hgb Hct MCV MCH MCHC RDW Plt Count Lymph % (Auto) Harper % (Auto) Lymph # Harper # Baso # Seg Neutrophils % Seg Neuts % (Manual) Lymphocytes % (Manual) Monocytes % (Manual) Eosinophils % (Manual) Basophils % (Manual) Nucleated RBC % Seg Neutrophils # Seg Neutrophils # Man Lymphocytes # (Manual) Monocytes # (Manual) Eosinophils # (Manual) Basophils # (Manual) PT INR Fibrinogen dRVVT Confirm Interp Factor V Activity POC ABG pH POC ABG pCO2 POC ABG pO2 ABG pO2 ABG HCO3 ABG Base Excess ABG Hemoglobin Oxyhemoglobin Sodium 135 L 136 L Potassium 5.2 H 5.9 H Chloride 95.8 L 97.7 L 96.0 L Carbon Dioxide 21 L 21 L BUN 40 H 56 H 70 H Creatinine 1.7 H 2.4 H 3.0 H Glucose 118 H POC Glucose Lactic Acid Calcium Ionized Calcium Phosphorus 4.80 H D 6.00 H D Magnesium 2.60 H Direct Bilirubin AST ALT Alkaline Phosphatase 165 H Lactate Dehydrogenase Troponin T C-Reactive Protein Total Protein Albumin 1.5 L Prealbumin Triglycerides Cholesterol LDL Cholesterol Direct HDL Cholesterol 25-OH Vitamin D Total PTH Intact Urine pH Urine WBC (Auto) Urine Creatinine Urine Total Protein Fluid Total Protein Vancomycin Trough Rheumatoid Factor Complement C4 Miscellaneous Test Crossmatch 03/06/17 03/06/17 03/06/17 11:19 18:40 23:39 WBC RBC Hgb Hct MCV MCH MCHC RDW Plt Count Lymph % (Auto) Harper % (Auto) Lymph # Harper # Baso # Seg Neutrophils % Seg Neuts % (Manual) Lymphocytes % (Manual) Monocytes % (Manual) Eosinophils % (Manual) Basophils % (Manual) Nucleated RBC % Seg Neutrophils # Seg Neutrophils # Man Lymphocytes # (Manual) Monocytes # (Manual) Eosinophils # (Manual) Basophils # (Manual) PT INR Fibrinogen dRVVT Confirm Interp Factor V Activity POC ABG pH POC ABG pCO2 POC ABG pO2 ABG pO2 ABG HCO3 ABG Base Excess ABG Hemoglobin Oxyhemoglobin Sodium Potassium Chloride Carbon Dioxide BUN Creatinine Glucose POC Glucose 108 H 110 H 156 H Lactic Acid Calcium Ionized Calcium Phosphorus Magnesium Direct Bilirubin AST ALT Alkaline Phosphatase Lactate Dehydrogenase Troponin T C-Reactive Protein Total Protein Albumin Prealbumin Triglycerides Cholesterol LDL Cholesterol Direct HDL Cholesterol 25-OH Vitamin D Total PTH Intact Urine pH Urine WBC (Auto) Urine Creatinine Urine Total Protein Fluid Total Protein Vancomycin Trough Rheumatoid Factor Complement C4 Miscellaneous Test Crossmatch 01/16/18 06:04 WBC RBC Hgb Hct MCV MCH MCHC RDW Plt Count Lymph % (Auto) Harper % (Auto) Lymph # Harper # Baso # Seg Neutrophils % Seg Neuts % (Manual) Lymphocytes % (Manual) Monocytes % (Manual) Eosinophils % (Manual) Basophils % (Manual) Nucleated RBC % Seg Neutrophils # Seg Neutrophils # Man Lymphocytes # (Manual) Monocytes # (Manual) Eosinophils # (Manual) Basophils # (Manual) PT INR Fibrinogen dRVVT Confirm Interp Factor V Activity POC ABG pH POC ABG pCO2 POC ABG pO2 ABG pO2 ABG HCO3 ABG Base Excess ABG Hemoglobin Oxyhemoglobin Sodium Potassium Chloride 97.5 L Carbon Dioxide BUN 28 H Creatinine 1.5 H Glucose POC Glucose Lactic Acid Calcium 7.9 L Ionized Calcium Phosphorus Magnesium Direct Bilirubin AST ALT Alkaline Phosphatase Lactate Dehydrogenase Troponin T C-Reactive Protein Total Protein Albumin Prealbumin Triglycerides Cholesterol LDL Cholesterol Direct HDL Cholesterol 25-OH Vitamin D Total PTH Intact Urine pH Urine WBC (Auto) Urine Creatinine Urine Total Protein Fluid Total Protein Vancomycin Trough Rheumatoid Factor Complement C4 Miscellaneous Test Crossmatch Allied health notes reviewed: RT
[2017-03-07] MEDS ORDERED: TPN ADULT IV SCH (20:00)
[2017-03-07] MEDS ORDERED: HYDROGEN PEROXIDE ONE (20:46)
[2017-03-07] MEDS: TYLENOL FEEDTUBE PRN (21:32)
[2017-03-08] MEDS: LEVOPHED DRIP 4 MG/NS 250 ML 4 MG/250 ML BAG IV SCH ×2 (01:20→09:05)
[2017-03-08] MEDS ORDERED: CATHFLO IV ONE (01:52)
[2017-03-08] MEDS ORDERED: ARTIFICIAL TEARS OPHTH OINT OU PRN (03:37)
[2017-03-08] MEDS: VASELINE LIP THERAPY TP PRN ×2 (05:29→08:30)
[2017-03-08] MEDS: CORDARONE 900 MG in D5W 482 ML IV SCH (05:36)
[2017-03-08] MEDS: REGLAN IV SCH ×3 (05:37→22:29)
[2017-03-08 06:35] LABS: Calcium 8.6 mg/dL (8.4-10.2)
[2017-03-08] MEDS: HumuLIN R SUB-Q SCH ×3 (06:56→19:35)
[2017-03-08] MEDS ORDERED: HYDROGEN PEROXIDE TP ONE (06:58)
[2017-03-08] MEDS: DUONEB *Not for PRN Use IH SCH ×3 (08:05→20:00)
[2017-03-08] MEDS: LOPRESSOR IV SCH ×3 (08:31→20:35)
[2017-03-08] MEDS ORDERED: CATHFLO ONE (08:37)
[2017-03-08] MEDS ORDERED: WATER FOR INJ (PF) 10 ML ONE (09:10)
--- NOTE | 2017-03-08 09:20 | Progress Note ---
Assessment and Plan Assessment and plan: Patient is 46-year-old woman with a history of hypertension, diabetes, asthma, hyperlipidemia, chronic kidney disease and anxiety , who was brought in by family because, she couldn't get her words out, her face was also twisted, she was admitted for acute CVA and accelerated hypertension, she had a hx of poor adherence with her medications, and uncontrolled htn. Patient's SBP on admission was noted be greater than 260. TPA was started but this was discontinued after 5 minutes because her blood pressure became uncontrolled. The TPA was not initiated again because the patient was outside the TPA window. Gram positive septicemia case dw ID vasc cath removed, and now has temp HD cath placed on 03/06, on abx, TTE no vegetations, blood cx growing enterococus alonzo Status post cardiac arrest , 11/21/16 on Mechanical ventilation >96 hrs, > 6 months Vent Dependant Respiratory failure secondary to Anoxic Brain injury S/P Tracheostomy Severe Sepsis with septic shock; has completed multiple courses of abx Surgical wound infection/gram-negative sepsis/candidemia/peritonitis - On TPN ESRD - on HD Acute CVA with infarct - Neurology input appreciated - CT shows continued evolution of left MCA infarct with slight mass effect and edema, and there is no hemorrhage - PRINCE showed hyperdynamic with ef of 75%, neither clot nor septal defect seen - MRA Brain shows near complete occlusion of M2 and M3 of the left MCA - Repeat CT scan done on 09/11, shows stable findings - carotid doppler negative - Echo shows preserved systolic function but does show some left ventricular diastolic dysfunction - continue asa and statin Persistent vegetative state - This patient's needs placement at SNF - She was denied for LTACH Nosocomial acquired aspiration pneumonia/sepsis/UTI/PERITONITIS - Has completed multiple courses of abx A. fib with RVR -On amio drip, cannot change to PO due to persistent nausea and vomiting, NPO Diabetes type 2. -Continue sliding-scale regular insulin and Accu-Cheks. Hyperlipidemia. Continue statin Severe Protein calorie Malnutrition/Adult failure to thrive - TPN Anemia requiring multiple transfusions/acute blood loss -stable, keep hg above 7 Sacral decubitus ulcer - Status post debridement -Wound vac in place Disposition. Very poor prognosis. DNR Critical care time 32 minutes - The high probability of a clinically significant, sudden or life threatening deterioration of the [neurologic, CV] system(s) required my full and direct attention, intervention and personal management. The aggregate critical care time was [32] minutes. This time is in addition to time spent performing reported procedures but includes the following: [x] Data Review and interpretation [x] Patient assessment and monitoring of vital signs [x] Documentation [x] Medication orders and management History Interval history: Patient seen and evaluated in ICU Medical records reviewed Status post tracheostomy on vent MAXIMUM TEMPERATURE 101, this morning 98.6 Unresponsive, cachectic Hospitalist Physical - Constitutional Vitals: Temp Pulse Resp BP Pulse Ox 97.6 F 75 24 150/71 100 03/08/17 08:28 03/08/17 08:31 03/08/17 08:16 03/08/17 08:31 03/08/17 08:16 General appearance: Present: no acute distress, cachectic, other (unresponsive) - EENT Eyes: Present: PERRL - Neck Neck: Present: supple, normal ROM - Respiratory Respiratory effort: normal Respiratory: bilateral: diminished, rhonchi - Cardiovascular Rhythm: regular Heart Sounds: Present: S1 & S2 - Extremities Extremities: no ischemia, abnormal (decubitus ulcers heel) - Abdominal General gastrointestinal: soft, non-tender, non-distended, normal bowel sounds, other (PEG tube in place) - Integumentary Integumentary: Present: clear, warm, erythema (multiple decubiti) - Psychiatric Psychiatric: other (unresponsive) - Neurologic Neurologic: other (unresponsive) Results - Labs CBC & Chem 7: 02/24/17 10:05 03/08/17 05:15 Labs: Laboratory Last Values WBC 10.2 K/mm3 (4.5-11.0) 02/24/17 10:05 RBC 2.95 M/mm3 (3.65-5.03) L 02/24/17 10:05 Hgb 8.4 gm/dl (10.1-14.3) L 02/24/17 10:05 Hct 25.7 % (30.3-42.9) L 02/24/17 10:05 MCV 87 fl (79-97) 02/24/17 10:05 MCH 28 pg (28-32) 02/24/17 10:05 MCHC 33 % (30-34) 02/24/17 10:05 RDW 20.8 % (13.2-15.2) H 02/24/17 10:05 Plt Count 333 K/mm3 (140-440) 02/24/17 10:05 Lymph % (Auto) 19.8 % (13.4-35.0) 02/24/17 10:05 Jewell % (Auto) 7.2 % (0.0-7.3) 02/24/17 10:05 Eos % (Auto) 0.7 % (0.0-4.3) 02/24/17 10:05 Baso % (Auto) 0.5 % (0.0-1.8) 02/24/17 10:05 Lymph # 2.0 K/mm3 (1.2-5.4) 02/24/17 10:05 Jewell # 0.7 K/mm3 (0.0-0.8) 02/24/17 10:05 Eos # 0.1 K/mm3 (0.0-0.4) 02/24/17 10:05 Baso # 0.0 K/mm3 (0.0-0.1) 02/24/17 10:05 Add Manual Diff Complete 12/19/16 05:02 Total Counted 100 12/19/16 05:02 Seg Neutrophils % 71.8 % (40.0-70.0) H 02/24/17 10:05 Seg Neuts % (Manual) 64.0 % (40.0-70.0) 12/19/16 05:02 Band Neutrophils % 15.0 % 12/19/16 05:02 Lymphocytes % (Manual) 13.0 % (13.4-35.0) L 12/19/16 05:02 Reactive Lymphs % (Man) 0 % 12/19/16 05:02 Monocytes % (Manual) 7.0 % (0.0-7.3) 12/19/16 05:02 Eosinophils % (Manual) 0 % (0.0-4.3) 12/19/16 05:02 Basophils % (Manual) 1.0 % (0.0-1.8) 12/19/16 05:02 Metamyelocytes % 0 % 12/19/16 05:02 Myelocytes % 0 % 12/19/16 05:02 Promyelocytes % 0 % 12/19/16 05:02 Blast Cells % 0 % 12/19/16 05:02 Nucleated RBC % 1.0 % (0.0-0.9) H 12/19/16 05:02 Seg Neutrophils # 7.3 K/mm3 (1.8-7.7) 02/24/17 10:05 Seg Neutrophils # Man 12.9 K/mm3 (1.8-7.7) H 12/19/16 05:02 Band Neutrophils # 3.0 K/mm3 12/19/16 05:02 Lymphocytes # (Manual) 2.6 K/mm3 (1.2-5.4) 12/19/16 05:02 Abs React Lymphs (Man) 0.0 K/mm3 12/19/16 05:02 Monocytes # (Manual) 1.4 K/mm3 (0.0-0.8) H 12/19/16 05:02 Eosinophils # (Manual) 0.0 K/mm3 (0.0-0.4) 12/19/16 05:02 Basophils # (Manual) 0.2 K/mm3 (0.0-0.1) H 12/19/16 05:02 Metamyelocytes # 0.0 K/mm3 12/19/16 05:02 Myelocytes # 0.0 K/mm3 12/19/16 05:02 Promyelocytes # 0.0 K/mm3 12/19/16 05:02 Blast Cells # 0.0 K/mm3 12/19/16 05:02 Pathologist Review 09/13/16 04:00 WBC Morphology Not Reportable 12/19/16 05:02 Hypersegmented Neuts Not Reportable 12/19/16 05:02 Hyposegmented Neuts Not Reportable 12/19/16 05:02 Hypogranular Neuts Not Reportable 12/19/16 05:02 Smudge Cells Not Reportable 12/19/16 05:02 Toxic Granulation Not Reportable 12/19/16 05:02 Toxic Vacuolation Not Reportable 12/19/16 05:02 Dohle Bodies Not Reportable 12/19/16 05:02 Pelger-Huet Anomaly Not Reportable 12/19/16 05:02 Jasmina Rods Not Reportable 12/19/16 05:02 Platelet Estimate Consistent w auto 12/19/16 05:02 Clumped Platelets Not Reportable 12/19/16 05:02 Plt Clumps, EDTA Not Reportable 12/19/16 05:02 Large Platelets Not Reportable 12/19/16 05:02 Giant Platelets Not Reportable 12/19/16 05:02 Platelet Satelliting Not Reportable 12/19/16 05:02 Plt Morphology Comment Not Reportable 12/19/16 05:02 RBC Morphology Not Reportable 12/19/16 05:02 Dimorphic RBCs Not Reportable 12/19/16 05:02 Polychromasia Not Reportable 12/19/16 05:02 Hypochromasia Not Reportable 12/19/16 05:02 Poikilocytosis Not Reportable 12/19/16 05:02 Anisocytosis Not Reportable 12/19/16 05:02 Microcytosis Not Reportable 12/19/16 05:02 Macrocytosis Not Reportable 12/19/16 05:02 Spherocytes Not Reportable 12/19/16 05:02 Pappenheimer Bodies Not Reportable 12/19/16 05:02 Sickle Cells Not Reportable 12/19/16 05:02 Target Cells Few 12/19/16 05:02 Tear Drop Cells Not Reportable 12/19/16 05:02 Ovalocytes Not Reportable 12/19/16 05:02 Stomatocytes Rare 12/03/16 04:00 Helmet Cells Not Reportable 12/19/16 05:02 Monet-Pantops Bodies Not Reportable 12/19/16 05:02 [place] Rings Not Reportable 12/19/16 05:02 Chuck Cells Not Reportable 12/19/16 05:02 Bite Cells Not Reportable 12/19/16 05:02 Crenated Cell Not Reportable 12/19/16 05:02 Elliptocytes Not Reportable 12/19/16 05:02 Acanthocytes (Spur) Not Reportable 12/19/16 05:02 Rouleaux Not Reportable 12/19/16 05:02 Hemoglobin C Crystals Not Reportable 12/19/16 05:02 Schistocytes Not Reportable 12/19/16 05:02 Malaria parasites Not Reportable 12/19/16 05:02 ESR > 140.0 mm/Hr (0-20) 09/08/16 11:48 Jun Bodies Not Reportable 12/19/16 05:02 Hem Pathologist Commnt No 12/19/16 05:02 PT 15.4 Sec. (12.2-14.9) H 01/13/17 15:50 INR 1.16 (0.87-1.13) H 01/13/17 15:50 APTT 33.0 Sec. (24.2-36.6) 10/09/16 03:45 Thrombin Time 16.8 Sec. (15.1-19.6) 09/03/16 00:10 Fibrinogen 750 mg/dl (211-480) H 09/08/16 11:48 Lupus Anticoagulant see below 09/12/16 09:59 LA PTT Baseline See scanned report 09/12/16 09:59 dRVVT Confirm Interp Positive (Negative) H 09/12/16 09:59 dRVVT Screen 50:50 See scanned report 09/12/16 09:59 dRVVT Mix Interpret See scanned report 09/12/16 09:59 Protein C Antigen 122 % (70-140) 09/08/16 15:35 Free Protein S 97 % normal (50-147) 09/08/16 15:35 Total Protein S 109 % (70-140) 09/08/16 15:35 Antithrombin III Ag 100 % (80-120) 09/08/16 15:35 Heparin Anti-Xa, Unfract Negative (Negative) 09/29/16 13:35 Factor V Activity 182 % (65-150) H 09/08/16 15:35 POC ABG pH 7.518 (7.35-7.45) H 03/03/17 20:17 ABG pH 7.450 pH Units (7.350-7.450) 12/05/16 Unknown POC ABG pCO2 28.8 (35-45) L 03/03/17 20: ABG pCO2 29.6 mm Hg 12/05/16 Unknown POC ABG pO2 61 (80-105) L 03/03/17 20: ABG pO2 75.2 mm Hg (80.0-90.0) L 12/05/16 Unknown POC ABG HCO3 23.4 03/03/17 20: ABG HCO3 20.1 mmol/L (20.0-26.0) 12/05/16 Unknown POC ABG Total CO2 24 03/03/17 20:17 POC ABG O2 Sat 94 03/03/17 20: ABG O2 Saturation 96.8 % (95.0-99.0) 12/05/16 Unknown ABG O2 Content 9.9 (0.0-44) 12/05/16 Unknown POC ABG Base Excess 0 03/03/17 20:17 ABG Base Excess -3.4 mmol/L (-2.0-3.0) L 12/05/16 Unknown ABG Hemoglobin 7.4 gm/dl (12.0-16.0) L 12/05/16 Unknown ABG Carboxyhemoglobin 1.8 % (0.0-5.0) 12/05/16 Unknown ABG Methemoglobin 0.6 % (0.0-1.5) 12/05/16 Unknown Oxyhemoglobin 94.5 % (95.0-99.0) L 12/05/16 Unknown FiO2 40 % 03/03/17 20:17 Sodium 135 mmol/L (137-145) L 03/08/17 05:15 Potassium 3.6 mmol/L (3.6-5.0) 03/08/17 05:15 Chloride 96.6 mmol/L (98-107) L 03/08/17 05:15 Carbon Dioxide 20 mmol/L (22-30) L 03/08/17 05:15 Anion Gap 22 mmol/L 03/08/17 05:15 BUN 46 mg/dL (7-17) H 03/08/17 05:15 Creatinine 2.3 mg/dL (0.7-1.2) H D 03/08/17 05:15 Estimated GFR 28 ml/min 03/08/17 05:15 BUN/Creatinine Ratio 20 % 03/08/17 05:15 Glucose 117 mg/dL (65-100) H 03/08/17 05:15 POC Glucose 156 (70-105) H 03/08/17 05:38 Osmolality 351 Mosm/kg 09/16/16 11:47 Lactic Acid 2.30 mmol/L (0.7-2.0) H* 01/09/17 08:22 Calcium 8.6 mg/dL (8.4-10.2) 03/08/17 05:15 Ionized Calcium 6.0 mg/dL (4.8-5.6) H 02/15/17 19:08 Phosphorus 3.60 mg/dL (2.5-4.5) D 03/08/17 05:15 Magnesium 1.80 mg/dL (1.7-2.3) 03/08/17 05:15 Total Bilirubin 0.50 mg/dL (0.1-1.2) 03/06/17 03:52 Direct Bilirubin 0.2 mg/dL (0-0.2) 01/28/17 04:00 Indirect Bilirubin 0.3 mg/dL 01/28/17 04:00 AST 18 units/L (5-40) 03/06/17 03:52 ALT 18 units/L (7-56) 03/06/17 03:52 Alkaline Phosphatase 165 units/L (35-129) H 03/06/17 03:52 Ammonia 27.0 umol/L (25-60) 09/07/16 08:37 Lactate Dehydrogenase 170 units/L (91-180) 01/13/17 15:50 Total Creatine Kinase 121 units/L (30-135) 09/29/16 20:12 CK-MB (CK-2) < 1.0 ng/mL (0.0-4.0) 09/29/16 20:12 CK-MB (CK-2) Rel Index 0.8 (0-4) 09/29/16 20:12 Troponin T 0.204 ng/mL (0.00-0.029) H* 09/29/16 20:12 C-Reactive Protein 8.10 mg/dL (0.00-1.30) H 01/31/17 11:12 Total Protein 7.0 g/dL (6.3-8.2) 03/06/17 03:52 Albumin 1.5 g/dL (3.9-5) L 03/06/17 03:52 Albumin/Globulin Ratio 0.3 % 03/06/17 03:52 Prealbumin 0.110 g/L (0.200-0.400) L 12/29/16 05:15 Triglycerides 55 mg/dL (2-149) 02/06/17 04:45 Cholesterol 31 mg/dL (50-199) L 09/29/16 20:12 LDL Cholesterol Direct 4 mg/dL (50-130) L 09/29/16 20:12 HDL Cholesterol 3 mg/dL (40-59) L 09/29/16 20:12 Cholesterol/HDL Ratio 10.33 % 09/29/16 20:12 Angiotensin Convert Enz See scanned report 09/08/16 11:48 Renin 0.99 ng/mL/h (0.25-5.82) 10/07/16 10:56 Aldosterone <1 ng/dL () 10/07/16 10:56 Aldosterone/Renin Dir see below 10/07/16 10:56 Serotonin Release Assay See scanned report 09/29/16 13:35 25-OH Vitamin D Total 13 ng/mL (30-100) L 02/15/17 19:08 25-Hydroxy Vitamin D2 . 02/15/17 19:08 25-Hydroxy Vitamin D3 . 02/15/17 19:08 TSH 1.010 mlU/mL (0.270-4.200) 09/07/16 08:37 HCG, Qual Negative (Negative) 09/03/16 00:10 PTH Intact 10.88 pg/mL (15-65) L 02/15/17 19:08 Total Cortisol 18.2 mcg/dL () 02/02/17 20:09 Urine Color Yellow (Yellow) 11/05/16 13:09 Urine Turbidity Clear (Clear) 11/05/16 13:09 Urine pH 9.0 (5.0-7.0) H 11/05/16 13:09 Ur Specific [place] 1.011 (1.003-1.030) 11/05/16 13:09 Urine Protein 100 mg/dl mg/dL (Negative) 11/05/16 13:09 Urine Glucose (UA) Neg mg/dL (Negative) 11/05/16 13:09 Urine Ketones Neg mg/dL (Negative) 11/05/16 13:09 Urine Blood Neg (Negative) 11/05/16 13:09 Urine Nitrite Neg (Negative) 11/05/16 13:09 Urine Bilirubin Neg (Negative) 11/05/16 13:09 Urine Urobilinogen < 2.0 mg/dL (<2.0) 11/05/16 13:09 Ur Leukocyte Esterase Neg (Negative) 11/05/16 13:09 Urine WBC (Auto) 4.0 /HPF (0.0-6.0) 11/05/16 13:09 Urine RBC (Auto) 1.0 /HPF (0.0-6.0) 11/05/16 13:09 U Epithel Cells (Auto) 1.0 /HPF (0-13.0) 10/07/16 18:30 Urine Bacteria (Auto) 4+ /HPF (Negative) 11/05/16 13:09 Urine WBC Clumps 2+ /HPF 09/07/16 02:47 Hyaline Casts 4 /LPF 09/07/16 02:47 Urine Mucus Few /HPF 10/07/16 18:30 Urine Yeast (Budding) 3+ /HPF 10/07/16 18:30 Urine Eosinophils None seen (None Seen) 09/07/16 16:00 Urine Total Volume 950 11/12/16 10:18 Urine Creatinine 19.7 mg/dL (0.1-20.0) 11/12/16 10:18 Height (in) 65.0 inches 11/12/16 10:18 Weight (lb) 181.0 lbs 11/12/16 10:18 Creatinine Clearance 5 11/12/16 10:18 Urine Sodium 36 mEq/L 09/16/16 19:19 Urine Total Protein 16 mg/dL (5-11.8) H 09/16/16 19:19 Fluid Type Pleural 01/13/17 12:10 Fluid Color Yellow 01/13/17 12:10 Fluid Appearance Hazy 01/13/17 12:10 Fluid WBC 182 /mm3 01/13/17 12:10 Fluid RBC 41 /mm3 01/13/17 12:10 Fluid Seg Neutrophils 85.0 % 01/13/17 12:10 Fluid Lymphocytes 8.0 % 01/13/17 12:10 Fluid Reactive Lymphs 0 % 01/13/17 12:10 Fluid Monocytes 6.0 % 01/13/17 12:10 Fluid Eosinophils 1.0 % 01/13/17 12:10 Fluid Basophils 0 % 01/13/17 12:10 Fluid Total Protein 3.0 (15.0-45.0) L 01/13/17 12:10 Fluid LDH 1322 01/13/17 12:10 Fluid Comment Diff performed 01/13/17 12:10 Vancomycin Trough 2.3 ug/mL (5.0-20.0) L 09/21/16 13:00 Random Vancomycin 17.7 ug/mL (0-40.0) 03/06/17 03:52 Urine Opiates Screen Presumptive negative 09/03/16 15:11 Urine Methadone Screen Presumptive positive 09/03/16 15:11 Ur Barbiturates Screen Presumptive positive 09/03/16 15:11 Ur Phencyclidine Scrn Presumptive negative 09/03/16 15:11 Ur Amphetamines Screen Presumptive negative 09/03/16 15:11 U Benzodiazepines Scrn Presumptive negative 09/03/16 15:11 Urine Cocaine Screen Presumptive negative 09/03/16 15:11 U Marijuana (THC) Screen Presumptive positive 09/03/16 15:11 Drugs of Abuse Note Disclamer 09/03/16 15:11 Rheumatoid Factor 24 IU/ml (0-13) H 09/08/16 11:48 SAHIL Screen Negative (Negative) 09/07/16 09:20 Proteinase 3 (PR3) Ab <1.0 AI (<1.0) 09/07/16 09:20 Myeloperoxidase Ab <1.0 AI (<1.0) 09/07/16 09:20 Sjogren's Antibody <1.0 AI (<1.0) 09/08/16 15:35 Scl-70 Scleroderma Ab <1.0 AI (<1.0) 09/08/16 15:35 Centromere B Antibody <1.0 AI (<1.0) 09/08/16 12:02 Heparin-induced Plt Ab Negative (Negative) 09/29/16 13:35 UF Heparin High Dose 11 % Release 09/29/16 13:35 SUDHIR UFH Low Dose 0.1 6 % Release 09/29/16 13:35 SUDHIR UFH Low Dose 0.5 8 % Release 09/29/16 13:35 Cardiolipid IgG Ab <14 GPL (<=14) 09/12/16 09:59 Cardiolipid IgA Ab <11 APL (<=11) 09/12/16 09:59 Cardiolipid IgM Ab <12 MPL (<=12) 09/12/16 09:59 Complement C3 148 mg/dL (90-180) 09/07/16 09:20 Complement C4 58 mg/dL (16-47) H 09/07/16 09:20 RPR Nonreactive (Nonreactive) 09/08/16 11:48 Hepatitis A IgM Ab Non-reactive (NonReactive) 09/24/16 14:40 Hep Bs Antigen Non-reactive (Negative) 09/24/16 14:40 Hep B Core IgM Ab Non-reactive (NonReactive) 09/24/16 14:40 Hepatitis C Antibody Non-reactive (NonReactive) 09/24/16 14:40 HIV 1&2 Antibody Rapid Non react (Non React) 09/08/16 11:48 HIV P24 Antigen Non react (Non React) 09/08/16 11:48 Miscellaneous Test Flexitest 1 H 01/09/17 18:45 Blood Type A POSITIVE 02/12/17 10:25 Antibody Screen Negative 02/12/17 10:25 DELORIS Antibody Screen Negative 11/24/16 11:20 Crossmatch See Detail 02/12/17 10:25
[2017-03-08] MEDS: HEPARIN SUB-Q SCH ×2 (09:30→22:28)
[2017-03-08] MEDS ORDERED: NACL 0.9% 100 ML IV PRN (09:35)
--- NOTE | 2017-03-08 10:11 | Progress Note ---
Assessment and Plan Assessment: 1) Recurrent SIRS: new septic shock ? - Likely due to recurrent Enterococcus bacteremia ? intrabdominal source 2) History of Peritonitis: from gastric perforation from dislodged PEG with significant ascites -S/P exlap, repair of gastric perforation with wedge gastrectomy, abdominal washout, drain placement on 10/05 3) History of Candidemia: -Blood cultures positive for Silvia albicans on 09/23 and 09/25 -Blood cultures negative on 09/30 -PICC line changed on 10/03 -Source ? gastric perf (PEG placed on 09/20) +/- TPN +/- central lines -TTE 10/07 no vegetations -PICC exchanged on 10/03 -fully treated with micafungin for 14 days last day 10/13 4) History CA-UTI s/p gutierrez exchanged 5) Diarrhea - ? etiology ? antibiotic-induced, not better. 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 from GI bleed 13) Recent abdominal wall abscess at surgical site-treated 14 ) Recent Enterococcal bacteremia from PICC line infection. 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 -S/P debridement at bedside - new wound cx 01/24 +Proteus and MDR Pseudomonas (resistant to meropenem and cefepime/sensitive to ceftazidime) and wound VAC placement -CRP=24 --> 8 16) Presumed VAP: sputum + MDR Pseudomonas / Proteus / pleural effusion s/p thoracentesis 17) Resp failure - better 18) Perforated bowel: Ct showed presumed perf bowel with free air 19) Enterococcal septicemia from IV cath. TTE no vegetations Plan: -obtain CT abd in view of new septic shock -f/u repeat blood cultures -which has been neg -continue vancomycin for now total 14 days from perm cath removal until 03/16 poor prognosis [address] you Dr Pierre for your consultation, will follow up with you. Pauline Carias MD Infectious Diseases Specialist [facility] ([facility] M [phone] O [phone] Subjective Date of service: 03/08/17 Principal diagnosis: Acute resp failure on MVS; S/P Acute CVA; Acute Encephalopathy; JUANITA Interval history: Interval history: remains on the vent, tachy on monitor, on amiodarone gtt, had fever on 03/05, temp 101.3 on levophed Microbiology: Blood cultures: 09/13 neg 8/ Silvia albicans 09/25 Silvia 09/29 neg 10/07 neg 11/05 neg 11/07 ngtd 11/22 E faecalis 1 of 4 bottles 11/25 neg 12/27 neg 01/09 ngtd 02/14 ngtd 02/27 Enterococcus durans 1 of 4 bottles 03/06 ngtd Urine cultures: 09/10 neg 09/13 neg 8 10-100K mixed species 10/07 neg 11/05 VRE 11/07 mixed bacteria Respiratory cultures: 09/07 neg 09/13 neg 09/23 neg 11/07 MDR Pseudomonas 11/21 tracheal + VRE 01/09 Pseudomonas x 3 and Proteues Pleural effusion: ngtd Wound cultures: 10/17 abd wall wound purulence + Pseudomonas MDR 01/24 GNRs Stool cultures: cath tip 11/07 + [employer] Current Antimicrobials: none Previous Antimicrobials: Zosyn 10/07 Vancomycin PO 10/01 Metronidazole 09/25 Micafungin 09/27-10/13 Meropenem 10/10 Vanco 10/17 zosyn 10/21 Cefepime 11/10 vancomyin 11/07 fluconazole 10/19 cefepime 10/29levaquin 11/05 vanco 11/23 meropenem 01/08 ceftaz 01/30 Objective - Exam Narrative Exam: General appearance: alert non communicative, on the vent via trach in mild resp distress, no following commands Eyes: anicteric sclera, moist conjunctivae; PERRLA HENT: Atraumatic; oropharynx limited; Normal external ears. +NGT with greenish secretion Neck: +trach in place; supple, no thyromegaly or lymphadenopathy Lungs: brit coarse BS CV: tachy Abdomen: Soft, tender, +old PEG site no drainage. +iliostomy. Right sided Surgical site x 2 with ostomy bags Extremities: +peripheral edema Skin: sacral area wounds - per wound care STAGE 4 PRESSURE INJURY TO SACRAL MEASURES 7.5X6X2.5, WITH UNDERMINING FROM @9-1 OCLOCK-2.8CM-ULCER CLEANED WITH WOUND DIRECTOR OF SALES-ULCER NEW - Sacrum wound measuring 9x11cm. Necrotic tissue noted on the wound edges and in the wound bed Now with a wound VAC Psych: somnolent . Neuro: alert non verbal on the vent. Lines: PICC / gutierrez - Constitutional Vitals: Vital Signs Temp Pulse Resp BP Pulse Ox 97.6 F 75 24 150/71 100 03/08/17 08:28 03/08/17 08:31 03/08/17 08:16 03/08/17 08:31 03/08/17 08:16 Temperature -Last 24 Hours Temperature 97.6 F Temperature 96.1 F Temperature 98.8 F Temperature 101.3 F Temperature 98.7 F Temperature 100.5 F - Labs CBC & Chem 7: 02/24/17 10:05 03/08/17 05:15 Labs: Abnormal lab results 03/07/17 03/07/17 03/08/17 Range/Units 11:56 23:31 05:15 Sodium 135 L (137-145) mmol/L Chloride 96.6 L (98-107) mmol/L Carbon Dioxide 20 L (22-30) mmol/L BUN 46 H (7-17) mg/dL Creatinine 2.3 H D (0.7-1.2) mg/dL Glucose 117 H (65-100) mg/dL POC Glucose 106 H 131 H (70-105) 03/08/17 Range/Units 05:38 Sodium (137-145) mmol/L Chloride (98-107) mmol/L Carbon Dioxide (22-30) mmol/L BUN (7-17) mg/dL Creatinine (0.7-1.2) mg/dL Glucose (65-100) mg/dL POC Glucose 156 H (70-105)
--- NOTE | 2017-03-08 11:48 | Progress Note ---
Assessment and Plan Patient is 46-year-old woman with a history of hypertension, diabetes mellitus, asthma, hyperlipidemia, chronic kidney disease and anxiety, who was brought in by family because she couldn't get her words out, her face was also twisted, she was admitted for acute CVA and accelerated hypertension, she had a hx of poor adherence with her medications, and uncontrolled hypertension. Patient's SBP on admission was noted be greater than 260. TPA was started but this it was discontinued after 5 minutes because her blood pressure became uncontrolled. The TPA was not initiated again because the patient was outside the TPA window. Patient has had a prolonged hospital stay complicated with recurrent severe sepsis. Patient with most recent event also status post cardiac arrest on 11/21/16 , with CPR and ROSC. Acute on chronic Hypoxemic Respiratory Failure Sepsis -recurrent s/p tracheostomy Hypertension Atrial Fibrillation with RVR Acute encephalopathy s/p CVA Oropharyngeal dysphagia Enterococcal bacteremia Sacral Decubitus Ulcer- unstageable s/p debridement Anemia Obesity JUANITA now on hemodialysis Enteric Fistula - VAP bundle addressed - continue NGT to LIS - continue wound care/wound vac per WCT - Vasopressor if MAP falls < 65mmHg - keep on with daily PSV trials and / or T-piece as tolerated - continue TPN administration (continue TPN; NPO except for meds) - continue airway clearance and secretion management - continue to wean FiO2 for sats > 94% - continue to monitor hemodynamics closely - continue HD/UF per nephrology - continue to follow electrolytes and correct as necessary - continue GI & VTE prophylaxis Transfuse 1 unit PRBC as needed to keep HgH>7g/dL -Get CThead to evaluate for new strokes/ neurologic events. ID has ordered CT abdomen and pelvis, in view of new fevers .....she remains critically ill on life sustaining interventions including MVS and at risk for further deterioration including ...assisted prognosis remains poor ...DNR in the event of cardiac arrest - Patient Problems (1) Acute respiratory failure with hypoxia Current Visit: Yes Status: Acute (2) Acute blood loss anemia Current Visit: Yes Status: Resolved (3) Acute CVA (cerebrovascular accident) Current Visit: Yes Status: Acute (4) Chronic renal insufficiency Current Visit: Yes Status: Acute (5) Uncontrolled hypertension Current Visit: Yes Status: Acute (6) Leukocytosis (leucocytosis) Current Visit: Yes Status: Acute Qualifiers: Leukocytosis type: leukemoid reaction Qualified Code(s): D72.823 - Leukemoid reaction (7) Dislodged gastrostomy tube Current Visit: Yes Status: Acute (8) Fungemia Current Visit: Yes Status: Resolved (9) Cardiopulmonary arrest with successful resuscitation Current Visit: Yes Status: Acute Subjective Date of service: 03/08/17 Principal diagnosis: Acute resp failure on MVS; S/P Acute CVA; Acute Encephalopathy; JUANITA Interval history: Patient is seen today for: Acute resp failure on MVS; S/P Acute CVA; Acute Encephalopathy; JUANITA Seen and examined at bedside; 24hour events reviewed; nursing and respiratory care staff consulted; no adverse overnight events reported to me; she remains critically ill. Had a temperature spike 103 overnight. Appears to be less responsive today with some posturing. Tolearting PSV this morning. Discussed with RT Discussed during interdisciplinary ICU team rounds Objective - Exam Narrative Exam: General appearance: alert non communicative, on the vent via trach in mild resp distress, not following commands Eyes: anicteric sclera, moist conjunctivae; PERRLA HENT: Atraumatic; oropharynx limited; Normal external ears. +NGT with greenish secretion Neck: +trach in place; supple, no thyromegaly or lymphadenopathy Lungs: brit coarse BS CV: tachycardia Abdomen: Soft, tender, +old PEG site no drainage. +iliostomy. Right sided Surgical site x 2 with ostomy bags (drained one liter of fluid from ostomy bag this morning) Extremities: no peripheral edema, no cyanosis, no clubbing Skin: sacral area wounds - per wound care STAGE 4 PRESSURE INJURY TO SACRAL MEASURES [id number], Neuro: alert , upper extrmity posturing when touched. Lines: PICC / gutierrez Vital Signs - 12hr 03/07/17 03/08/17 03/08/17 23:45 00:00 00:10 Temperature 98.8 F Pulse Rate 107 H 107 H 103 H Pulse Rate [ Throughout] Respiratory 16 29 H Rate Respiratory Rate [ Throughout] Blood Pressure 82/38 82/38 79/35 O2 Sat by Pulse 96 95 96 Oximetry O2 Sat by Pulse Oximetry [ Assessment] 03/08/17 03/08/17 03/08/17 00:15 00:30 00:45 Temperature Pulse Rate 105 H 105 H 102 H Pulse Rate [ Throughout] Respiratory 14 14 16 Rate Respiratory Rate [ Throughout] Blood Pressure 90/41 80/41 79/41 O2 Sat by Pulse 92 93 94 Oximetry O2 Sat by Pulse Oximetry [ Assessment] 03/08/17 03/08/17 03/08/17 01:00 01:15 01:30 Temperature Pulse Rate 104 H 102 H 87 Pulse Rate [ Throughout] Respiratory 13 18 15 Rate Respiratory Rate [ Throughout] Blood Pressure 83/42 79/46 98/51 O2 Sat by Pulse 96 98 97 Oximetry O2 Sat by Pulse Oximetry [ Assessment] 03/08/17 03/08/17 03/08/17 01:45 02:00 02:15 Temperature Pulse Rate 82 89 84 Pulse Rate [ Throughout] Respiratory 14 13 14 Rate Respiratory Rate [ Throughout] Blood Pressure 109/57 104/56 107/53 O2 Sat by Pulse 97 97 97 Oximetry O2 Sat by Pulse Oximetry [ Assessment] 03/08/17 03/08/17 03/08/17 02:30 02:45 03:00 Temperature Pulse Rate 84 82 84 Pulse Rate [ Throughout] Respiratory 12 12 15 Rate Respiratory Rate [ Throughout] Blood Pressure 101/50 95/48 100/52 O2 Sat by Pulse 96 96 99 Oximetry O2 Sat by Pulse Oximetry [ Assessment] 03/08/17 03/08/17 03/08/17 03:15 03:30 03:45 Temperature Pulse Rate 82 87 79 Pulse Rate [ Throughout] Respiratory 19 19 16 Rate Respiratory Rate [ Throughout] Blood Pressure 98/52 98/52 116/62 O2 Sat by Pulse 97 100 95 Oximetry O2 Sat by Pulse Oximetry [ Assessment] 03/08/17 03/08/17 03/08/17 04:00 04:16 04:30 Temperature Pulse Rate 80 83 74 Pulse Rate [ Throughout] Respiratory 16 22 15 Rate Respiratory Rate [ Throughout] Blood Pressure 111/58 112/70 122/59 O2 Sat by Pulse 100 100 100 Oximetry O2 Sat by Pulse 100 Oximetry [ Assessment] 03/08/17 03/08/17 03/08/17 04:37 04:45 05:00 Temperature 96.1 F L Pulse Rate 81 76 74 Pulse Rate [ Throughout] Respiratory 13 12 Rate Respiratory Rate [ Throughout] Blood Pressure 112/70 108/60 113/59 O2 Sat by Pulse 100 100 100 Oximetry O2 Sat by Pulse Oximetry [ Assessment] 03/08/17 03/08/17 03/08/17 05:15 05:30 05:45 Temperature Pulse Rate 76 77 73 Pulse Rate [ Throughout] Respiratory 12 13 12 Rate Respiratory Rate [ Throughout] Blood Pressure 124/64 124/64 112/62 O2 Sat by Pulse 100 100 100 Oximetry O2 Sat by Pulse Oximetry [ Assessment] 03/08/17 03/08/17 03/08/17 06:00 06:16 06:30 Temperature Pulse Rate 72 73 74 Pulse Rate [ Throughout] Respiratory 14 13 16 Rate Respiratory Rate [ Throughout] Blood Pressure 113/59 111/69 129/75 O2 Sat by Pulse 100 100 100 Oximetry O2 Sat by Pulse Oximetry [ Assessment] 03/08/17 03/08/17 03/08/17 06:45 07:00 07:15 Temperature Pulse Rate 82 81 78 Pulse Rate [ Throughout] Respiratory 14 18 14 Rate Respiratory Rate [ Throughout] Blood Pressure 130/73 130/73 127/72 O2 Sat by Pulse 98 96 99 Oximetry O2 Sat by Pulse Oximetry [ Assessment] 03/08/17 03/08/17 03/08/17 07:30 07:45 07:56 Temperature Pulse Rate 79 79 80 Pulse Rate [ Throughout] Respiratory 13 19 Rate Respiratory Rate [ Throughout] Blood Pressure 134/75 145/74 145/74 O2 Sat by Pulse 97 99 99 Oximetry O2 Sat by Pulse Oximetry [ Assessment] 03/08/17 03/08/17 03/08/17 08:00 08:11 08:12 Temperature Pulse Rate 79 75 Pulse Rate [ 78 74 Throughout] Respiratory 15 23 Rate Respiratory 15 20 Rate [ Throughout] Blood Pressure 147/80 147/80 O2 Sat by Pulse 100 100 Oximetry O2 Sat by Pulse 100 Oximetry [ Assessment] 03/08/17 03/08/17 03/08/17 08:16 08:28 08:30 Temperature 97.6 F Pulse Rate 74 78 Pulse Rate [ Throughout] Respiratory 24 30 H Rate Respiratory Rate [ Throughout] Blood Pressure 150/71 150/71 O2 Sat by Pulse 100 100 Oximetry O2 Sat by Pulse Oximetry [ Assessment] 03/08/17 03/08/17 03/08/17 08:31 08:45 09:00 Temperature Pulse Rate 75 72 76 Pulse Rate [ Throughout] Respiratory 23 23 Rate Respiratory Rate [ Throughout] Blood Pressure 150/71 111/57 109/62 O2 Sat by Pulse 100 100 Oximetry O2 Sat by Pulse Oximetry [ Assessment] 03/08/17 03/08/17 03/08/17 09:15 09:30 09:45 Temperature Pulse Rate 74 73 73 Pulse Rate [ Throughout] Respiratory 26 H 30 H 31 H Rate Respiratory Rate [ Throughout] Blood Pressure 101/58 100/52 89/47 O2 Sat by Pulse 100 100 100 Oximetry O2 Sat by Pulse Oximetry [ Assessment] 03/08/17 03/08/17 03/08/17 10:00 10:16 10:30 Temperature Pulse Rate 73 79 78 Pulse Rate [ Throughout] Respiratory 32 H 24 25 H Rate Respiratory Rate [ Throughout] Blood Pressure 87/57 87/57 115/66 O2 Sat by Pulse 100 96 100 Oximetry O2 Sat by Pulse Oximetry [ Assessment] Constitutional: appears uncomfortable, other (not tracking) Eyes: non-icteric, other (tracheostomy tube in midline of neck) ENT: oropharynx moist, oropharyngeal exudate pre Neck: supple, no lymphadenopathy, no JVD, other (no thyromegaly) Effort: mildly labored Ascultation: Bilateral: clear, diminished breath sounds (bases R>L), rales, rhonchi (and referred upper airway sounds) Percussion: Right: dull (base), Bilateral: not dull Cardiovascular: regular rate and rhythm, other (no rubs / murmurs) Gastrointestinal: hypoactive bowel sounds, soft, non-tender, non-distended, other (RLQ & LUQ stomas with colostomy bags) Integumentary: decubitus ulcer (sacral; stage 4 s/p surgical debridement), other (no rash; no cellulitis; poor turgor) Extremities: no cyanosis, pulses normal, no ischemia or petechiae, edema (1+ bilaterally) Neurologic: pupils equal and round, unable to assess, other (encephalopathic) Psychiatric: other (unable to assess) CBC and BMP: 02/24/17 10:05 03/08/17 05:15 ABG, PT/INR, D-dimer: ABG POC ABG pH 7.518 (7.35-7.45) H 03/03/17 20:17 ABG pH 7.450 pH Units (7.350-7.450) 12/05/16 Unknown POC ABG pCO2 28.8 (35-45) L 03/03/17 20:17 ABG pCO2 29.6 mm Hg 12/05/16 Unknown POC ABG pO2 61 (80-105) L 03/03/17 20:17 ABG pO2 75.2 mm Hg (80.0-90.0) L 12/05/16 Unknown POC ABG HCO3 23.4 03/03/17 20:17 POC ABG Total CO2 24 03/03/17 20:17 POC ABG O2 Sat 94 03/03/17 20:17 ABG O2 Saturation 96.8 % (95.0-99.0) 12/05/16 Unknown PT/INR, D-dimer PT 15.4 Sec. (12.2-14.9) H 01/13/17 15:50 INR 1.16 (0.87-1.13) H 01/13/17 15:50 Abnormal lab findings: Abnormal Labs 09/03/16 09/03/16 09/03/16 00:03 00:10 00:10 WBC 13.9 H RBC 5.95 H Hgb Hct 44.0 H MCV 74 L MCH 22 L MCHC RDW 17.5 H Plt Count Lymph % (Auto) [place] % (Auto) Lymph # [place] # Baso # Seg Neutrophils % Seg Neuts % (Manual) Lymphocytes % (Manual) 54.0 H Monocytes % (Manual) Eosinophils % (Manual) Basophils % (Manual) Nucleated RBC % Seg Neutrophils # Seg Neutrophils # Man Lymphocytes # (Manual) 7.5 H Monocytes # (Manual) Eosinophils # (Manual) Basophils # (Manual) PT INR Fibrinogen dRVVT Confirm Interp Factor V Activity POC ABG pH POC ABG pCO2 POC ABG pO2 ABG pO2 ABG HCO3 ABG Base Excess ABG Hemoglobin Oxyhemoglobin Sodium Potassium 2.8 L* Chloride Carbon Dioxide 21 L BUN Creatinine 1.7 H Glucose 159 H POC Glucose 177 H Lactic Acid Calcium Ionized Calcium Phosphorus Magnesium Direct Bilirubin AST ALT Alkaline Phosphatase Lactate Dehydrogenase Troponin T C-Reactive Protein Total Protein Albumin Prealbumin Triglycerides Cholesterol LDL Cholesterol Direct HDL Cholesterol 25-OH Vitamin D Total PTH Intact Urine pH Urine WBC (Auto) Urine Creatinine Urine Total Protein Fluid Total Protein Vancomycin Trough Rheumatoid Factor Complement C4 Miscellaneous Test Crossmatch 09/03/16 09/03/16 09/03/16 12:12 15:07 16:20 WBC RBC Hgb Hct MCV MCH MCHC RDW Plt Count Lymph % (Auto) [place] % (Auto) Lymph # [place] # Baso # Seg Neutrophils % Seg Neuts % (Manual) Lymphocytes % (Manual) Monocytes % (Manual) Eosinophils % (Manual) Basophils % (Manual) Nucleated RBC % Seg Neutrophils # Seg Neutrophils # Man Lymphocytes # (Manual) Monocytes # (Manual) Eosinophils # (Manual) Basophils # (Manual) PT INR Fibrinogen dRVVT Confirm Interp Factor V Activity POC ABG pH 7.452 H POC ABG pCO2 POC ABG pO2 ABG pO2 ABG HCO3 ABG Base Excess ABG Hemoglobin Oxyhemoglobin Sodium Potassium Chloride Carbon Dioxide BUN Creatinine Glucose POC Glucose 178 H Lactic Acid Calcium Ionized Calcium Phosphorus 2.20 L Magnesium 1.60 L Direct Bilirubin AST ALT Alkaline Phosphatase Lactate Dehydrogenase Troponin T C-Reactive Protein Total Protein Albumin Prealbumin Triglycerides Cholesterol LDL Cholesterol Direct HDL Cholesterol 25-OH Vitamin D Total PTH Intact Urine pH Urine WBC (Auto) Urine Creatinine Urine Total Protein Fluid Total Protein Vancomycin Trough Rheumatoid Factor Complement C4 Miscellaneous Test Crossmatch 09/03/16 09/03/16 09/03/16 17:57 17:58 23:50 WBC RBC Hgb Hct MCV MCH MCHC RDW Plt Count Lymph % (Auto) [place] % (Auto) Lymph # [place] # Baso # Seg Neutrophils % Seg Neuts % (Manual) Lymphocytes % (Manual) Monocytes % (Manual) Eosinophils % (Manual) Basophils % (Manual) Nucleated RBC % Seg Neutrophils # Seg Neutrophils # Man Lymphocytes # (Manual) Monocytes # (Manual) Eosinophils # (Manual) Basophils # (Manual) PT INR Fibrinogen dRVVT Confirm Interp Factor V Activity POC ABG pH POC ABG pCO2 POC ABG pO2 ABG pO2 ABG HCO3 ABG Base Excess ABG Hemoglobin Oxyhemoglobin Sodium Potassium Chloride Carbon Dioxide BUN Creatinine Glucose POC Glucose 162 H 145 H Lactic Acid Calcium Ionized Calcium Phosphorus 2.30 L Magnesium Direct Bilirubin AST ALT Alkaline Phosphatase Lactate Dehydrogenase Troponin T C-Reactive Protein Total Protein Albumin Prealbumin Triglycerides Cholesterol LDL Cholesterol Direct HDL Cholesterol 25-OH Vitamin D Total PTH Intact Urine pH Urine WBC (Auto) Urine Creatinine Urine Total Protein Fluid Total Protein Vancomycin Trough Rheumatoid Factor Complement C4 Miscellaneous Test Crossmatch 09/04/16 09/04/16 09/04/16 03:31 03:31 05:42 WBC RBC Hgb 9.7 L D Hct MCV 72 L MCH 23 L MCHC RDW 17.5 H Plt Count Lymph % (Auto) 11.1 L [place] % (Auto) Lymph # [place] # Baso # Seg Neutrophils % 84.3 H Seg Neuts % (Manual) Lymphocytes % (Manual) Monocytes % (Manual) Eosinophils % (Manual) Basophils % (Manual) Nucleated RBC % Seg Neutrophils # 8.9 H Seg Neutrophils # Man Lymphocytes # (Manual) Monocytes # (Manual) Eosinophils # (Manual) Basophils # (Manual) PT INR Fibrinogen dRVVT Confirm Interp Factor V Activity POC ABG pH POC ABG pCO2 POC ABG pO2 ABG pO2 ABG HCO3 ABG Base Excess ABG Hemoglobin Oxyhemoglobin Sodium 135 L Potassium 2.9 L* Chloride 97.2 L Carbon Dioxide 19 L BUN Creatinine 1.7 H Glucose 170 H POC Glucose 152 H Lactic Acid Calcium Ionized Calcium Phosphorus Magnesium Direct Bilirubin AST ALT Alkaline Phosphatase Lactate Dehydrogenase Troponin T C-Reactive Protein Total Protein Albumin Prealbumin Triglycerides 160 H Cholesterol LDL Cholesterol Direct HDL Cholesterol 31 L 25-OH Vitamin D Total PTH Intact Urine pH Urine WBC (Auto) Urine Creatinine Urine Total Protein Fluid Total Protein Vancomycin Trough Rheumatoid Factor Complement C4 Miscellaneous Test Crossmatch 09/04/16 09/04/16 09/04/16 11:34 17:46 23:29 WBC RBC Hgb Hct MCV MCH MCHC RDW Plt Count Lymph % (Auto) [place] % (Auto) Lymph # [place] # Baso # Seg Neutrophils % Seg Neuts % (Manual) Lymphocytes % (Manual) Monocytes % (Manual) Eosinophils % (Manual) Basophils % (Manual) Nucleated RBC % Seg Neutrophils # Seg Neutrophils # Man Lymphocytes # (Manual) Monocytes # (Manual) Eosinophils # (Manual) Basophils # (Manual) PT INR Fibrinogen dRVVT Confirm Interp Factor V Activity POC ABG pH POC ABG pCO2 POC ABG pO2 ABG pO2 ABG HCO3 ABG Base Excess ABG Hemoglobin Oxyhemoglobin Sodium Potassium Chloride Carbon Dioxide BUN Creatinine Glucose POC Glucose 165 H 210 H 139 H Lactic Acid Calcium Ionized Calcium Phosphorus Magnesium Direct Bilirubin AST ALT Alkaline Phosphatase Lactate Dehydrogenase Troponin T C-Reactive Protein Total Protein Albumin Prealbumin Triglycerides Cholesterol LDL Cholesterol Direct HDL Cholesterol 25-OH Vitamin D Total PTH Intact Urine pH Urine WBC (Auto) Urine Creatinine Urine Total Protein Fluid Total Protein Vancomycin Trough Rheumatoid Factor Complement C4 Miscellaneous Test Crossmatch 09/05/16 09/05/16 09/05/16 04:05 04:05 05:38 WBC RBC Hgb Hct MCV 76 L D MCH 23 L MCHC RDW 17.8 H Plt Count Lymph % (Auto) [place] % (Auto) Lymph # [place] # Baso # Seg Neutrophils % Seg Neuts % (Manual) Lymphocytes % (Manual) Monocytes % (Manual) Eosinophils % (Manual) Basophils % (Manual) Nucleated RBC % Seg Neutrophils # Seg Neutrophils # Man Lymphocytes # (Manual) Monocytes # (Manual) Eosinophils # (Manual) Basophils # (Manual) PT INR Fibrinogen dRVVT Confirm Interp Factor V Activity POC ABG pH POC ABG pCO2 POC ABG pO2 ABG pO2 ABG HCO3 ABG Base Excess ABG Hemoglobin Oxyhemoglobin Sodium 134 L Potassium Chloride Carbon Dioxide 18 L BUN Creatinine 1.8 H Glucose 192 H POC Glucose 175 H Lactic Acid Calcium Ionized Calcium Phosphorus Magnesium Direct Bilirubin AST ALT Alkaline Phosphatase Lactate Dehydrogenase Troponin T C-Reactive Protein Total Protein Albumin Prealbumin Triglycerides Cholesterol LDL Cholesterol Direct HDL Cholesterol 25-OH Vitamin D Total PTH Intact Urine pH Urine WBC (Auto) Urine Creatinine Urine Total Protein Fluid Total Protein Vancomycin Trough Rheumatoid Factor Complement C4 Miscellaneous Test Crossmatch 09/05/16 09/05/16 09/05/16 11:38 17:48 23:22 WBC RBC Hgb Hct MCV MCH MCHC RDW Plt Count Lymph % (Auto) [place] % (Auto) Lymph # [place] # Baso # Seg Neutrophils % Seg Neuts % (Manual) Lymphocytes % (Manual) Monocytes % (Manual) Eosinophils % (Manual) Basophils % (Manual) Nucleated RBC % Seg Neutrophils # Seg Neutrophils # Man Lymphocytes # (Manual) Monocytes # (Manual) Eosinophils # (Manual) Basophils # (Manual) PT INR Fibrinogen dRVVT Confirm Interp Factor V Activity POC ABG pH POC ABG pCO2 POC ABG pO2 ABG pO2 ABG HCO3 ABG Base Excess ABG Hemoglobin Oxyhemoglobin Sodium Potassium Chloride Carbon Dioxide BUN Creatinine Glucose POC Glucose 164 H 186 H 195 H Lactic Acid Calcium Ionized Calcium Phosphorus Magnesium Direct Bilirubin AST ALT Alkaline Phosphatase Lactate Dehydrogenase Troponin T C-Reactive Protein Total Protein Albumin Prealbumin Triglycerides Cholesterol LDL Cholesterol Direct HDL Cholesterol 25-OH Vitamin D Total PTH Intact Urine pH Urine WBC (Auto) Urine Creatinine Urine Total Protein Fluid Total Protein Vancomycin Trough Rheumatoid Factor Complement C4 Miscellaneous Test Crossmatch 09/06/16 09/06/16 09/06/16 04:12 05:59 07:32 WBC RBC Hgb Hct MCV MCH MCHC RDW Plt Count Lymph % (Auto) [place] % (Auto) Lymph # [place] # Baso # Seg Neutrophils % Seg Neuts % (Manual) Lymphocytes % (Manual) Monocytes % (Manual) Eosinophils % (Manual) Basophils % (Manual) Nucleated RBC % Seg Neutrophils # Seg Neutrophils # Man Lymphocytes # (Manual) Monocytes # (Manual) Eosinophils # (Manual) Basophils # (Manual) PT INR Fibrinogen dRVVT Confirm Interp Factor V Activity POC ABG pH 7.514 H POC ABG pCO2 29.1 L POC ABG pO2 72 L ABG pO2 ABG HCO3 ABG Base Excess ABG Hemoglobin Oxyhemoglobin Sodium 133 L Potassium 3.4 L Chloride 94.9 L Carbon Dioxide 19 L BUN 30 H Creatinine 2.1 H Glucose 139 H POC Glucose 146 H Lactic Acid Calcium Ionized Calcium Phosphorus Magnesium Direct Bilirubin AST ALT Alkaline Phosphatase Lactate Dehydrogenase Troponin T C-Reactive Protein Total Protein Albumin Prealbumin Triglycerides Cholesterol LDL Cholesterol Direct HDL Cholesterol 25-OH Vitamin D Total PTH Intact Urine pH Urine WBC (Auto) Urine Creatinine Urine Total Protein Fluid Total Protein Vancomycin Trough Rheumatoid Factor Complement C4 Miscellaneous Test Crossmatch 09/06/16 09/06/16 09/06/16 11:57 17:58 19:02 WBC RBC Hgb Hct MCV MCH MCHC RDW Plt Count Lymph % (Auto) [place] % (Auto) Lymph # [place] # Baso # Seg Neutrophils % Seg Neuts % (Manual) Lymphocytes % (Manual) Monocytes % (Manual) Eosinophils % (Manual) Basophils % (Manual) Nucleated RBC % Seg Neutrophils # Seg Neutrophils # Man Lymphocytes # (Manual) Monocytes # (Manual) Eosinophils # (Manual) Basophils # (Manual) PT INR Fibrinogen dRVVT Confirm Interp Factor V Activity POC ABG pH 7.465 H POC ABG pCO2 32.0 L POC ABG pO2 ABG pO2 ABG HCO3 ABG Base Excess ABG Hemoglobin Oxyhemoglobin Sodium Potassium Chloride Carbon Dioxide BUN Creatinine Glucose POC Glucose 165 H 160 H Lactic Acid Calcium Ionized Calcium Phosphorus Magnesium Direct Bilirubin AST ALT Alkaline Phosphatase Lactate Dehydrogenase Troponin T C-Reactive Protein Total Protein Albumin Prealbumin Triglycerides Cholesterol LDL Cholesterol Direct HDL Cholesterol 25-OH Vitamin D Total PTH Intact Urine pH Urine WBC (Auto) Urine Creatinine Urine Total Protein Fluid Total Protein Vancomycin Trough Rheumatoid Factor Complement C4 Miscellaneous Test Crossmatch 09/06/16 09/07/16 09/07/16 23:45 02:47 02:47 WBC RBC Hgb Hct MCV MCH MCHC RDW Plt Count Lymph % (Auto) [place] % (Auto) Lymph # [place] # Baso # Seg Neutrophils % Seg Neuts % (Manual) Lymphocytes % (Manual) Monocytes % (Manual) Eosinophils % (Manual) Basophils % (Manual) Nucleated RBC % Seg Neutrophils # Seg Neutrophils # Man Lymphocytes # (Manual) Monocytes # (Manual) Eosinophils # (Manual) Basophils # (Manual) PT INR Fibrinogen dRVVT Confirm Interp Factor V Activity POC ABG pH POC ABG pCO2 POC ABG pO2 ABG pO2 ABG HCO3 ABG Base Excess ABG Hemoglobin Oxyhemoglobin Sodium Potassium Chloride Carbon Dioxide BUN Creatinine Glucose POC Glucose 204 H Lactic Acid Calcium Ionized Calcium Phosphorus Magnesium Direct Bilirubin AST ALT Alkaline Phosphatase Lactate Dehydrogenase Troponin T C-Reactive Protein Total Protein Albumin Prealbumin Triglycerides Cholesterol LDL Cholesterol Direct HDL Cholesterol 25-OH Vitamin D Total PTH Intact Urine pH Urine WBC (Auto) 68.0 H Urine Creatinine 106.1 H Urine Total Protein Fluid Total Protein Vancomycin Trough Rheumatoid Factor Complement C4 Miscellaneous Test Crossmatch 09/07/16 09/07/16 09/07/16 04:50 06:19 06:39 WBC RBC Hgb Hct MCV MCH MCHC RDW Plt Count Lymph % (Auto) [place] % (Auto) Lymph # [place] # Baso # Seg Neutrophils % Seg Neuts % (Manual) Lymphocytes % (Manual) Monocytes % (Manual) Eosinophils % (Manual) Basophils % (Manual) Nucleated RBC % Seg Neutrophils # Seg Neutrophils # Man Lymphocytes # (Manual) Monocytes # (Manual) Eosinophils # (Manual) Basophils # (Manual) PT INR Fibrinogen dRVVT Confirm Interp Factor V Activity POC ABG pH 7.457 H POC ABG pCO2 32.1 L POC ABG pO2 76 L ABG pO2 ABG HCO3 ABG Base Excess ABG Hemoglobin Oxyhemoglobin Sodium 132 L Potassium Chloride 94.7 L Carbon Dioxide BUN 53 H Creatinine 2.9 H Glucose 151 H POC Glucose 149 H Lactic Acid Calcium Ionized Calcium Phosphorus Magnesium Direct Bilirubin AST ALT Alkaline Phosphatase Lactate Dehydrogenase Troponin T C-Reactive Protein Total Protein Albumin Prealbumin Triglycerides Cholesterol LDL Cholesterol Direct HDL Cholesterol 25-OH Vitamin D Total PTH Intact Urine pH Urine WBC (Auto) Urine Creatinine Urine Total Protein Fluid Total Protein Vancomycin Trough Rheumatoid Factor Complement C4 Miscellaneous Test Crossmatch 09/07/16 09/07/16 09/07/16 09:20 11:43 11:43 WBC 19.4 H RBC Hgb 8.3 L Hct 26.4 L D MCV 72 L D MCH 22 L MCHC RDW 17.9 H Plt Count Lymph % (Auto) 8.5 L [place] % (Auto) Lymph # [place] # 1.0 H Baso # Seg Neutrophils % 85.8 H Seg Neuts % (Manual) Lymphocytes % (Manual) Monocytes % (Manual) Eosinophils % (Manual) Basophils % (Manual) Nucleated RBC % Seg Neutrophils # 16.6 H Seg Neutrophils # Man Lymphocytes # (Manual) Monocytes # (Manual) Eosinophils # (Manual) Basophils # (Manual) PT INR Fibrinogen dRVVT Confirm Interp Factor V Activity POC ABG pH POC ABG pCO2 POC ABG pO2 ABG pO2 ABG HCO3 ABG Base Excess ABG Hemoglobin Oxyhemoglobin Sodium 134 L Potassium Chloride 97.2 L Carbon Dioxide 20 L BUN 58 H Creatinine 2.9 H Glucose 147 H POC Glucose Lactic Acid Calcium Ionized Calcium Phosphorus 2.40 L Magnesium 2.40 H Direct Bilirubin AST ALT Alkaline Phosphatase Lactate Dehydrogenase Troponin T C-Reactive Protein Total Protein 5.8 L Albumin 2.2 L Prealbumin Triglycerides Cholesterol LDL Cholesterol Direct HDL Cholesterol 25-OH Vitamin D Total PTH Intact Urine pH Urine WBC (Auto) Urine Creatinine Urine Total Protein Fluid Total Protein Vancomycin Trough Rheumatoid Factor Complement C4 58 H Miscellaneous Test Crossmatch 09/07/16 09/07/16 09/07/16 11:50 16:00 17:31 WBC RBC Hgb Hct MCV MCH MCHC RDW Plt Count Lymph % (Auto) [place] % (Auto) Lymph # [place] # Baso # Seg Neutrophils % Seg Neuts % (Manual) Lymphocytes % (Manual) Monocytes % (Manual) Eosinophils % (Manual) Basophils % (Manual) Nucleated RBC % Seg Neutrophils # Seg Neutrophils # Man Lymphocytes # (Manual) Monocytes # (Manual) Eosinophils # (Manual) Basophils # (Manual) PT INR Fibrinogen dRVVT Confirm Interp Factor V Activity POC ABG pH POC ABG pCO2 POC ABG pO2 158 H ABG pO2 ABG HCO3 ABG Base Excess ABG Hemoglobin Oxyhemoglobin Sodium Potassium Chloride Carbon Dioxide BUN Creatinine Glucose POC Glucose 175 H Lactic Acid Calcium Ionized Calcium Phosphorus Magnesium Direct Bilirubin AST ALT Alkaline Phosphatase Lactate Dehydrogenase Troponin T C-Reactive Protein Total Protein Albumin Prealbumin Triglycerides Cholesterol LDL Cholesterol Direct HDL Cholesterol 25-OH Vitamin D Total PTH Intact Urine pH Urine WBC (Auto) Urine Creatinine 66.3 H Urine Total Protein Fluid Total Protein Vancomycin Trough Rheumatoid Factor Complement C4 Miscellaneous Test Crossmatch 09/07/16 09/08/16 09/08/16 23:50 05:46 06:18 WBC 17.8 H RBC 3.58 L Hgb 8.1 L Hct 25.5 L MCV 71 L MCH 23 L MCHC RDW 18.4 H Plt Count Lymph % (Auto) [place] % (Auto) Lymph # [place] # Baso # Seg Neutrophils % Seg Neuts % (Manual) 92.0 H Lymphocytes % (Manual) 6.0 L Monocytes % (Manual) Eosinophils % (Manual) Basophils % (Manual) Nucleated RBC % Seg Neutrophils # Seg Neutrophils # Man 16.4 H Lymphocytes # (Manual) 1.1 L Monocytes # (Manual) Eosinophils # (Manual) Basophils # (Manual) PT INR Fibrinogen dRVVT Confirm Interp Factor V Activity POC ABG pH POC ABG pCO2 34.3 L POC ABG pO2 71 L ABG pO2 ABG HCO3 ABG Base Excess ABG Hemoglobin Oxyhemoglobin Sodium Potassium Chloride Carbon Dioxide BUN Creatinine Glucose POC Glucose 216 H Lactic Acid Calcium Ionized Calcium Phosphorus Magnesium Direct Bilirubin AST ALT Alkaline Phosphatase Lactate Dehydrogenase Troponin T C-Reactive Protein Total Protein Albumin Prealbumin Triglycerides Cholesterol LDL Cholesterol Direct HDL Cholesterol 25-OH Vitamin D Total PTH Intact Urine pH Urine WBC (Auto) Urine Creatinine Urine Total Protein Fluid Total Protein Vancomycin Trough Rheumatoid Factor Complement C4 Miscellaneous Test Crossmatch 09/08/16 09/08/16 09/08/16 06:18 06:51 10:55 WBC RBC Hgb Hct MCV MCH MCHC RDW Plt Count Lymph % (Auto) [place] % (Auto) Lymph # [place] # Baso # Seg Neutrophils % Seg Neuts % (Manual) Lymphocytes % (Manual) Monocytes % (Manual) Eosinophils % (Manual) Basophils % (Manual) Nucleated RBC % Seg Neutrophils # Seg Neutrophils # Man Lymphocytes # (Manual) Monocytes # (Manual) Eosinophils # (Manual) Basophils # (Manual) PT INR Fibrinogen dRVVT Confirm Interp Factor V Activity POC ABG pH POC ABG pCO2 POC ABG pO2 ABG pO2 ABG HCO3 ABG Base Excess ABG Hemoglobin Oxyhemoglobin Sodium 133 L Potassium Chloride 96.9 L Carbon Dioxide 20 L BUN 63 H Creatinine 2.7 H Glucose 195 H POC Glucose 204 H 169 H Lactic Acid Calcium Ionized Calcium Phosphorus Magnesium Direct Bilirubin AST ALT Alkaline Phosphatase Lactate Dehydrogenase Troponin T C-Reactive Protein Total Protein Albumin Prealbumin Triglycerides Cholesterol LDL Cholesterol Direct HDL Cholesterol 25-OH Vitamin D Total PTH Intact Urine pH Urine WBC (Auto) Urine Creatinine Urine Total Protein Fluid Total Protein Vancomycin Trough Rheumatoid Factor Complement C4 Miscellaneous Test Crossmatch 09/08/16 09/08/16 09/08/16 11:48 11:48 11:48 WBC RBC Hgb Hct MCV MCH MCHC RDW Plt Count Lymph % (Auto) [place] % (Auto) Lymph # [place] # Baso # Seg Neutrophils % Seg Neuts % (Manual) Lymphocytes % (Manual) Monocytes % (Manual) Eosinophils % (Manual) Basophils % (Manual) Nucleated RBC % Seg Neutrophils # Seg Neutrophils # Man Lymphocytes # (Manual) Monocytes # (Manual) Eosinophils # (Manual) Basophils # (Manual) PT INR Fibrinogen 750 H dRVVT Confirm Interp Factor V Activity POC ABG pH POC ABG pCO2 POC ABG pO2 ABG pO2 ABG HCO3 ABG Base Excess ABG Hemoglobin Oxyhemoglobin Sodium Potassium Chloride Carbon Dioxide BUN Creatinine Glucose POC Glucose Lactic Acid Calcium Ionized Calcium Phosphorus Magnesium Direct Bilirubin AST ALT Alkaline Phosphatase Lactate Dehydrogenase Troponin T C-Reactive Protein 15.70 H Total Protein Albumin Prealbumin Triglycerides Cholesterol LDL Cholesterol Direct HDL Cholesterol 25-OH Vitamin D Total PTH Intact Urine pH Urine WBC (Auto) Urine Creatinine Urine Total Protein Fluid Total Protein Vancomycin Trough Rheumatoid Factor 24 H Complement C4 Miscellaneous Test Crossmatch 09/08/16 09/08/16 09/09/16 15:35 18:25 00:24 WBC RBC Hgb Hct MCV MCH MCHC RDW Plt Count Lymph % (Auto) [place] % (Auto) Lymph # [place] # Baso # Seg Neutrophils % Seg Neuts % (Manual) Lymphocytes % (Manual) Monocytes % (Manual) Eosinophils % (Manual) Basophils % (Manual) Nucleated RBC % Seg Neutrophils # Seg Neutrophils # Man Lymphocytes # (Manual) Monocytes # (Manual) Eosinophils # (Manual) Basophils # (Manual) PT INR Fibrinogen dRVVT Confirm Interp Factor V Activity 182 H POC ABG pH POC ABG pCO2 POC ABG pO2 ABG pO2 ABG HCO3 ABG Base Excess ABG Hemoglobin Oxyhemoglobin Sodium Potassium Chloride Carbon Dioxide BUN Creatinine Glucose POC Glucose 184 H 216 H Lactic Acid Calcium Ionized Calcium Phosphorus Magnesium Direct Bilirubin AST ALT Alkaline Phosphatase Lactate Dehydrogenase Troponin T C-Reactive Protein Total Protein Albumin Prealbumin Triglycerides Cholesterol LDL Cholesterol Direct HDL Cholesterol 25-OH Vitamin D Total PTH Intact Urine pH Urine WBC (Auto) Urine Creatinine Urine Total Protein Fluid Total Protein Vancomycin Trough Rheumatoid Factor Complement C4 Miscellaneous Test Crossmatch 09/09/16 09/09/16 09/09/16 03:00 03:00 04:04 WBC 27.9 H RBC Hgb 8.7 L Hct 28.1 L MCV 72 L MCH 22 L MCHC RDW 18.4 H Plt Count 485 H Lymph % (Auto) [place] % (Auto) Lymph # [place] # Baso # Seg Neutrophils % Seg Neuts % (Manual) 77.0 H Lymphocytes % (Manual) 9.0 L Monocytes % (Manual) Eosinophils % (Manual) Basophils % (Manual) Nucleated RBC % Seg Neutrophils # Seg Neutrophils # Man 21.5 H Lymphocytes # (Manual) Monocytes # (Manual) 2.0 H Eosinophils # (Manual) Basophils # (Manual) PT INR Fibrinogen dRVVT Confirm Interp Factor V Activity POC ABG pH POC ABG pCO2 POC ABG pO2 121 H ABG pO2 ABG HCO3 ABG Base Excess ABG Hemoglobin Oxyhemoglobin Sodium 135 L Potassium Chloride 96.3 L Carbon Dioxide 21 L BUN 83 H Creatinine 3.0 H Glucose 135 H POC Glucose Lactic Acid Calcium Ionized Calcium Phosphorus Magnesium Direct Bilirubin AST ALT Alkaline Phosphatase Lactate Dehydrogenase Troponin T C-Reactive Protein Total Protein Albumin Prealbumin Triglycerides Cholesterol LDL Cholesterol Direct HDL Cholesterol 25-OH Vitamin D Total PTH Intact Urine pH Urine WBC (Auto) Urine Creatinine Urine Total Protein Fluid Total Protein Vancomycin Trough Rheumatoid Factor Complement C4 Miscellaneous Test Crossmatch 09/09/16 09/09/16 09/09/16 05:41 11:55 14:13 WBC RBC Hgb Hct MCV MCH MCHC RDW Plt Count Lymph % (Auto) [place] % (Auto) Lymph # [place] # Baso # Seg Neutrophils % Seg Neuts % (Manual) Lymphocytes % (Manual) Monocytes % (Manual) Eosinophils % (Manual) Basophils % (Manual) Nucleated RBC % Seg Neutrophils # Seg Neutrophils # Man Lymphocytes # (Manual) Monocytes # (Manual) Eosinophils # (Manual) Basophils # (Manual) PT INR Fibrinogen dRVVT Confirm Interp Factor V Activity POC ABG pH POC ABG pCO2 POC ABG pO2 ABG pO2 ABG HCO3 ABG Base Excess ABG Hemoglobin Oxyhemoglobin Sodium Potassium Chloride Carbon Dioxide BUN Creatinine Glucose POC Glucose 155 H 186 H Lactic Acid Calcium Ionized Calcium Phosphorus Magnesium Direct Bilirubin AST ALT Alkaline Phosphatase Lactate Dehydrogenase Troponin T C-Reactive Protein Total Protein Albumin Prealbumin Triglycerides Cholesterol LDL Cholesterol Direct HDL Cholesterol 25-OH Vitamin D Total PTH Intact Urine pH Urine WBC (Auto) 25.0 H Urine Creatinine Urine Total Protein Fluid Total Protein Vancomycin Trough Rheumatoid Factor Complement C4 Miscellaneous Test Crossmatch 09/09/16 09/09/16 09/10/16 17:33 23:13 05:09 WBC RBC Hgb Hct MCV MCH MCHC RDW Plt Count Lymph % (Auto) [place] % (Auto) Lymph # [place] # Baso # Seg Neutrophils % Seg Neuts % (Manual) Lymphocytes % (Manual) Monocytes % (Manual) Eosinophils % (Manual) Basophils % (Manual) Nucleated RBC % Seg Neutrophils # Seg Neutrophils # Man Lymphocytes # (Manual) Monocytes # (Manual) Eosinophils # (Manual) Basophils # (Manual) PT INR Fibrinogen dRVVT Confirm Interp Factor V Activity POC ABG pH POC ABG pCO2 POC ABG pO2 74 L ABG pO2 ABG HCO3 ABG Base Excess ABG Hemoglobin Oxyhemoglobin Sodium Potassium Chloride Carbon Dioxide BUN Creatinine Glucose POC Glucose 211 H 215 H Lactic Acid Calcium Ionized Calcium Phosphorus Magnesium Direct Bilirubin AST ALT Alkaline Phosphatase Lactate Dehydrogenase Troponin T C-Reactive Protein Total Protein Albumin Prealbumin Triglycerides Cholesterol LDL Cholesterol Direct HDL Cholesterol 25-OH Vitamin D Total PTH Intact Urine pH Urine WBC (Auto) Urine Creatinine Urine Total Protein Fluid Total Protein Vancomycin Trough Rheumatoid Factor Complement C4 Miscellaneous Test Crossmatch 09/10/16 09/10/16 09/10/16 05:17 05:17 11:31 WBC 15.8 H RBC 3.25 L Hgb 7.3 L Hct 22.9 L MCV 71 L MCH 23 L MCHC RDW 18.4 H Plt Count Lymph % (Auto) [place] % (Auto) Lymph # [place] # Baso # Seg Neutrophils % Seg Neuts % (Manual) 91.0 H Lymphocytes % (Manual) 4.0 L Monocytes % (Manual) Eosinophils % (Manual) Basophils % (Manual) Nucleated RBC % Seg Neutrophils # Seg Neutrophils # Man 14.4 H Lymphocytes # (Manual) 0.6 L Monocytes # (Manual) Eosinophils # (Manual) Basophils # (Manual) PT INR Fibrinogen dRVVT Confirm Interp Factor V Activity POC ABG pH POC ABG pCO2 POC ABG pO2 ABG pO2 ABG HCO3 ABG Base Excess ABG Hemoglobin Oxyhemoglobin Sodium Potassium Chloride Carbon Dioxide 21 L BUN 93 H Creatinine 2.9 H Glucose 146 H POC Glucose 188 H Lactic Acid Calcium 8.1 L Ionized Calcium Phosphorus Magnesium Direct Bilirubin AST ALT Alkaline Phosphatase Lactate Dehydrogenase Troponin T C-Reactive Protein Total Protein Albumin Prealbumin Triglycerides Cholesterol LDL Cholesterol Direct HDL Cholesterol 25-OH Vitamin D Total PTH Intact Urine pH Urine WBC (Auto) Urine Creatinine Urine Total Protein Fluid Total Protein Vancomycin Trough Rheumatoid Factor Complement C4 Miscellaneous Test Crossmatch 09/10/16 09/10/16 09/10/16 13:17 17:20 23:32 WBC RBC Hgb Hct MCV MCH MCHC RDW Plt Count Lymph % (Auto) [place] % (Auto) Lymph # [place] # Baso # Seg Neutrophils % Seg Neuts % (Manual) Lymphocytes % (Manual) Monocytes % (Manual) Eosinophils % (Manual) Basophils % (Manual) Nucleated RBC % Seg Neutrophils # Seg Neutrophils # Man Lymphocytes # (Manual) Monocytes # (Manual) Eosinophils # (Manual) Basophils # (Manual) PT INR Fibrinogen dRVVT Confirm Interp Factor V Activity POC ABG pH POC ABG pCO2 POC ABG pO2 ABG pO2 ABG HCO3 ABG Base Excess ABG Hemoglobin Oxyhemoglobin Sodium Potassium Chloride Carbon Dioxide BUN Creatinine Glucose POC Glucose 199 H 186 H Lactic Acid Calcium Ionized Calcium Phosphorus Magnesium Direct Bilirubin AST ALT Alkaline Phosphatase Lactate Dehydrogenase Troponin T C-Reactive Protein Total Protein Albumin Prealbumin Triglycerides Cholesterol LDL Cholesterol Direct HDL Cholesterol 25-OH Vitamin D Total PTH Intact Urine pH Urine WBC (Auto) Urine Creatinine Urine Total Protein Fluid Total Protein Vancomycin Trough Rheumatoid Factor Complement C4 Miscellaneous Test Crossmatch See Detail 09/11/16 09/11/16 09/11/16 05:10 05:10 05:17 WBC 28.4 H RBC Hgb 9.2 L Hct 29.3 L D MCV 73 L MCH 23 L MCHC RDW 18.9 H Plt Count 452 H Lymph % (Auto) [place] % (Auto) Lymph # [place] # Baso # Seg Neutrophils % Seg Neuts % (Manual) 89.5 H Lymphocytes % (Manual) 2.0 L Monocytes % (Manual) Eosinophils % (Manual) Basophils % (Manual) Nucleated RBC % Seg Neutrophils # Seg Neutrophils # Man 25.4 H Lymphocytes # (Manual) 0.6 L Monocytes # (Manual) 1.3 H Eosinophils # (Manual) Basophils # (Manual) PT INR Fibrinogen dRVVT Confirm Interp Factor V Activity POC ABG pH POC ABG pCO2 POC ABG pO2 ABG pO2 ABG HCO3 ABG Base Excess ABG Hemoglobin Oxyhemoglobin Sodium 136 L Potassium Chloride Carbon Dioxide 18 L BUN 107 H Creatinine 2.6 H Glucose 187 H POC Glucose 230 H Lactic Acid Calcium 8.3 L Ionized Calcium Phosphorus Magnesium Direct Bilirubin AST ALT Alkaline Phosphatase Lactate Dehydrogenase Troponin T C-Reactive Protein Total Protein Albumin Prealbumin Triglycerides Cholesterol LDL Cholesterol Direct HDL Cholesterol 25-OH Vitamin D Total PTH Intact Urine pH Urine WBC (Auto) Urine Creatinine Urine Total Protein Fluid Total Protein Vancomycin Trough Rheumatoid Factor Complement C4 Miscellaneous Test Crossmatch 09/11/16 09/11/16 09/11/16 05:55 12:02 17:32 WBC RBC Hgb Hct MCV MCH MCHC RDW Plt Count Lymph % (Auto) [place] % (Auto) Lymph # [place] # Baso # Seg Neutrophils % Seg Neuts % (Manual) Lymphocytes % (Manual) Monocytes % (Manual) Eosinophils % (Manual) Basophils % (Manual) Nucleated RBC % Seg Neutrophils # Seg Neutrophils # Man Lymphocytes # (Manual) Monocytes # (Manual) Eosinophils # (Manual) Basophils # (Manual) PT INR Fibrinogen dRVVT Confirm Interp Factor V Activity POC ABG pH POC ABG pCO2 33.8 L POC ABG pO2 ABG pO2 ABG HCO3 ABG Base Excess ABG Hemoglobin Oxyhemoglobin Sodium Potassium Chloride Carbon Dioxide BUN Creatinine Glucose POC Glucose 191 H 239 H Lactic Acid Calcium Ionized Calcium Phosphorus Magnesium Direct Bilirubin AST ALT Alkaline Phosphatase Lactate Dehydrogenase Troponin T C-Reactive Protein Total Protein Albumin Prealbumin Triglycerides Cholesterol LDL Cholesterol Direct HDL Cholesterol 25-OH Vitamin D Total PTH Intact Urine pH Urine WBC (Auto) Urine Creatinine Urine Total Protein Fluid Total Protein Vancomycin Trough Rheumatoid Factor Complement C4 Miscellaneous Test Crossmatch 09/11/16 09/12/16 09/12/16 23:52 05:09 05:32 WBC RBC Hgb Hct MCV MCH MCHC RDW Plt Count Lymph % (Auto) [place] % (Auto) Lymph # [place] # Baso # Seg Neutrophils % Seg Neuts % (Manual) Lymphocytes % (Manual) Monocytes % (Manual) Eosinophils % (Manual) Basophils % (Manual) Nucleated RBC % Seg Neutrophils # Seg Neutrophils # Man Lymphocytes # (Manual) Monocytes # (Manual) Eosinophils # (Manual) Basophils # (Manual) PT INR Fibrinogen dRVVT Confirm Interp Factor V Activity POC ABG pH POC ABG pCO2 34.6 L POC ABG pO2 ABG pO2 ABG HCO3 ABG Base Excess ABG Hemoglobin Oxyhemoglobin Sodium Potassium Chloride Carbon Dioxide BUN Creatinine Glucose POC Glucose 265 H 184 H Lactic Acid Calcium Ionized Calcium Phosphorus Magnesium Direct Bilirubin AST ALT Alkaline Phosphatase Lactate Dehydrogenase Troponin T C-Reactive Protein Total Protein Albumin Prealbumin Triglycerides Cholesterol LDL Cholesterol Direct HDL Cholesterol 25-OH Vitamin D Total PTH Intact Urine pH Urine WBC (Auto) Urine Creatinine Urine Total Protein Fluid Total Protein Vancomycin Trough Rheumatoid Factor Complement C4 Miscellaneous Test Crossmatch 09/12/16 09/12/16 09/12/16 06:45 06:45 07:22 WBC 31.7 H RBC 3.54 L Hgb 8.3 L Hct 25.9 L MCV 73 L MCH 23 L MCHC RDW 18.9 H Plt Count Lymph % (Auto) [place] % (Auto) Lymph # [place] # Baso # Seg Neutrophils % Seg Neuts % (Manual) 88.5 H Lymphocytes % (Manual) 4.5 L Monocytes % (Manual) Eosinophils % (Manual) Basophils % (Manual) Nucleated RBC % Seg Neutrophils # Seg Neutrophils # Man 28.1 H Lymphocytes # (Manual) Monocytes # (Manual) 1.0 H Eosinophils # (Manual) Basophils # (Manual) PT INR Fibrinogen dRVVT Confirm Interp Factor V Activity POC ABG pH POC ABG pCO2 POC ABG pO2 ABG pO2 ABG HCO3 ABG Base Excess ABG Hemoglobin Oxyhemoglobin Sodium Potassium Chloride Carbon Dioxide 20 L BUN 115 H Creatinine 2.7 H Glucose 165 H POC Glucose Lactic Acid Calcium 8.0 L Ionized Calcium Phosphorus Magnesium Direct Bilirubin AST ALT Alkaline Phosphatase Lactate Dehydrogenase Troponin T C-Reactive Protein Total Protein Albumin Prealbumin Triglycerides 217 H Cholesterol LDL Cholesterol Direct HDL Cholesterol 25-OH Vitamin D Total PTH Intact Urine pH Urine WBC (Auto) Urine Creatinine Urine Total Protein Fluid Total Protein Vancomycin Trough Rheumatoid Factor Complement C4 Miscellaneous Test Crossmatch 09/12/16 09/12/16 09/12/16 07:22 09:59 12:21 WBC RBC Hgb Hct MCV MCH MCHC RDW Plt Count Lymph % (Auto) [place] % (Auto) Lymph # [place] # Baso # Seg Neutrophils % Seg Neuts % (Manual) Lymphocytes % (Manual) Monocytes % (Manual) Eosinophils % (Manual) Basophils % (Manual) Nucleated RBC % Seg Neutrophils # Seg Neutrophils # Man Lymphocytes # (Manual) Monocytes # (Manual) Eosinophils # (Manual) Basophils # (Manual) PT INR Fibrinogen dRVVT Confirm Interp Positive H Factor V Activity POC ABG pH POC ABG pCO2 POC ABG pO2 ABG pO2 ABG HCO3 ABG Base Excess ABG Hemoglobin Oxyhemoglobin Sodium Potassium Chloride Carbon Dioxide BUN Creatinine Glucose POC Glucose 224 H Lactic Acid Calcium Ionized Calcium Phosphorus Magnesium Direct Bilirubin AST ALT Alkaline Phosphatase Lactate Dehydrogenase Troponin T C-Reactive Protein 1.70 H Total Protein Albumin Prealbumin Triglycerides Cholesterol LDL Cholesterol Direct HDL Cholesterol 25-OH Vitamin D Total PTH Intact Urine pH Urine WBC (Auto) Urine Creatinine Urine Total Protein Fluid Total Protein Vancomycin Trough Rheumatoid Factor Complement C4 Miscellaneous Test Crossmatch 09/12/16 09/12/16 09/13/16 16:51 23:28 04:00 WBC 45.0 H* RBC Hgb 9.4 L Hct MCV 75 L MCH 23 L MCHC RDW 19.0 H Plt Count 470 H Lymph % (Auto) [place] % (Auto) Lymph # [place] # Baso # Seg Neutrophils % Seg Neuts % (Manual) 89.0 H Lymphocytes % (Manual) 5.0 L Monocytes % (Manual) Eosinophils % (Manual) Basophils % (Manual) Nucleated RBC % Seg Neutrophils # Seg Neutrophils # Man 40.1 H Lymphocytes # (Manual) Monocytes # (Manual) Eosinophils # (Manual) Basophils # (Manual) PT INR Fibrinogen dRVVT Confirm Interp Factor V Activity POC ABG pH POC ABG pCO2 POC ABG pO2 ABG pO2 ABG HCO3 ABG Base Excess ABG Hemoglobin Oxyhemoglobin Sodium Potassium Chloride Carbon Dioxide BUN Creatinine Glucose POC Glucose 169 H 150 H Lactic Acid Calcium Ionized Calcium Phosphorus Magnesium Direct Bilirubin AST ALT Alkaline Phosphatase Lactate Dehydrogenase Troponin T C-Reactive Protein Total Protein Albumin Prealbumin Triglycerides Cholesterol LDL Cholesterol Direct HDL Cholesterol 25-OH Vitamin D Total PTH Intact Urine pH Urine WBC (Auto) Urine Creatinine Urine Total Protein Fluid Total Protein Vancomycin Trough Rheumatoid Factor Complement C4 Miscellaneous Test Crossmatch 09/13/16 09/13/16 09/13/16 04:00 11:26 17:31 WBC RBC Hgb Hct MCV MCH MCHC RDW Plt Count Lymph % (Auto) [place] % (Auto) Lymph # [place] # Baso # Seg Neutrophils % Seg Neuts % (Manual) Lymphocytes % (Manual) Monocytes % (Manual) Eosinophils % (Manual) Basophils % (Manual) Nucleated RBC % Seg Neutrophils # Seg Neutrophils # Man Lymphocytes # (Manual) Monocytes # (Manual) Eosinophils # (Manual) Basophils # (Manual) PT INR Fibrinogen dRVVT Confirm Interp Factor V Activity POC ABG pH POC ABG pCO2 POC ABG pO2 ABG pO2 ABG HCO3 ABG Base Excess ABG Hemoglobin Oxyhemoglobin Sodium Potassium Chloride Carbon Dioxide 20 L BUN 116 H Creatinine 3.0 H Glucose 172 H POC Glucose 140 H 183 H Lactic Acid Calcium Ionized Calcium Phosphorus Magnesium Direct Bilirubin AST ALT Alkaline Phosphatase Lactate Dehydrogenase Troponin T C-Reactive Protein Total Protein 6.2 L Albumin 2.9 L Prealbumin Triglycerides Cholesterol LDL Cholesterol Direct HDL Cholesterol 25-OH Vitamin D Total PTH Intact Urine pH Urine WBC (Auto) Urine Creatinine Urine Total Protein Fluid Total Protein Vancomycin Trough Rheumatoid Factor Complement C4 Miscellaneous Test Crossmatch 09/13/16 09/14/16 09/14/16 23:23 04:06 04:07 WBC 29.4 H RBC Hgb 8.9 L Hct 27.3 L MCV 75 L MCH 24 L MCHC RDW 19.1 H Plt Count Lymph % (Auto) [place] % (Auto) Lymph # [place] # Baso # Seg Neutrophils % Seg Neuts % (Manual) 84.0 H Lymphocytes % (Manual) 6.0 L Monocytes % (Manual) 9.0 H Eosinophils % (Manual) Basophils % (Manual) Nucleated RBC % Seg Neutrophils # Seg Neutrophils # Man 24.7 H Lymphocytes # (Manual) Monocytes # (Manual) 2.6 H Eosinophils # (Manual) Basophils # (Manual) PT INR Fibrinogen dRVVT Confirm Interp Factor V Activity POC ABG pH 7.342 L POC ABG pCO2 POC ABG pO2 116 H ABG pO2 ABG HCO3 ABG Base Excess ABG Hemoglobin Oxyhemoglobin Sodium Potassium Chloride Carbon Dioxide BUN Creatinine Glucose POC Glucose 154 H Lactic Acid Calcium Ionized Calcium Phosphorus Magnesium Direct Bilirubin AST ALT Alkaline Phosphatase Lactate Dehydrogenase Troponin T C-Reactive Protein Total Protein Albumin Prealbumin Triglycerides Cholesterol LDL Cholesterol Direct HDL Cholesterol 25-OH Vitamin D Total PTH Intact Urine pH Urine WBC (Auto) Urine Creatinine Urine Total Protein Fluid Total Protein Vancomycin Trough Rheumatoid Factor Complement C4 Miscellaneous Test Crossmatch 09/14/16 09/14/16 09/14/16 04:07 05:29 12:19 WBC RBC Hgb Hct MCV MCH MCHC RDW Plt Count Lymph % (Auto) [place] % (Auto) Lymph # [place] # Baso # Seg Neutrophils % Seg Neuts % (Manual) Lymphocytes % (Manual) Monocytes % (Manual) Eosinophils % (Manual) Basophils % (Manual) Nucleated RBC % Seg Neutrophils # Seg Neutrophils # Man Lymphocytes # (Manual) Monocytes # (Manual) Eosinophils # (Manual) Basophils # (Manual) PT INR Fibrinogen dRVVT Confirm Interp Factor V Activity POC ABG pH POC ABG pCO2 POC ABG pO2 ABG pO2 ABG HCO3 ABG Base Excess ABG Hemoglobin Oxyhemoglobin Sodium 136 L Potassium Chloride Carbon Dioxide 18 L BUN 121 H Creatinine 2.8 H Glucose 214 H POC Glucose 239 H 181 H Lactic Acid Calcium Ionized Calcium Phosphorus Magnesium Direct Bilirubin AST ALT Alkaline Phosphatase Lactate Dehydrogenase Troponin T C-Reactive Protein Total Protein Albumin Prealbumin Triglycerides Cholesterol LDL Cholesterol Direct HDL Cholesterol 25-OH Vitamin D Total PTH Intact Urine pH Urine WBC (Auto) Urine Creatinine Urine Total Protein Fluid Total Protein Vancomycin Trough Rheumatoid Factor Complement C4 Miscellaneous Test Crossmatch 09/14/16 09/14/16 09/15/16 18:12 23:37 05:00 WBC 26.1 H RBC 3.05 L Hgb 7.2 L Hct 22.9 L MCV 75 L MCH 24 L MCHC RDW 19.0 H Plt Count Lymph % (Auto) [place] % (Auto) Lymph # [place] # Baso # Seg Neutrophils % Seg Neuts % (Manual) Lymphocytes % (Manual) Monocytes % (Manual) Eosinophils % (Manual) Basophils % (Manual) Nucleated RBC % Seg Neutrophils # Seg Neutrophils # Man Lymphocytes # (Manual) Monocytes # (Manual) Eosinophils # (Manual) Basophils # (Manual) PT INR Fibrinogen dRVVT Confirm Interp Factor V Activity POC ABG pH POC ABG pCO2 POC ABG pO2 ABG pO2 ABG HCO3 ABG Base Excess ABG Hemoglobin Oxyhemoglobin Sodium Potassium Chloride Carbon Dioxide BUN Creatinine Glucose POC Glucose 266 H 154 H Lactic Acid Calcium Ionized Calcium Phosphorus Magnesium Direct Bilirubin AST ALT Alkaline Phosphatase Lactate Dehydrogenase Troponin T C-Reactive Protein Total Protein Albumin Prealbumin Triglycerides Cholesterol LDL Cholesterol Direct HDL Cholesterol 25-OH Vitamin D Total PTH Intact Urine pH Urine WBC (Auto) Urine Creatinine Urine Total Protein Fluid Total Protein Vancomycin Trough Rheumatoid Factor Complement C4 Miscellaneous Test Crossmatch 09/15/16 09/15/16 09/15/16 05:00 05:17 12:45 WBC RBC Hgb Hct MCV MCH MCHC RDW Plt Count Lymph % (Auto) [place] % (Auto) Lymph # [place] # Baso # Seg Neutrophils % Seg Neuts % (Manual) Lymphocytes % (Manual) Monocytes % (Manual) Eosinophils % (Manual) Basophils % (Manual) Nucleated RBC % Seg Neutrophils # Seg Neutrophils # Man Lymphocytes # (Manual) Monocytes # (Manual) Eosinophils # (Manual) Basophils # (Manual) PT INR Fibrinogen dRVVT Confirm Interp Factor V Activity POC ABG pH POC ABG pCO2 POC ABG pO2 ABG pO2 ABG HCO3 ABG Base Excess ABG Hemoglobin Oxyhemoglobin Sodium Potassium 5.2 H Chloride Carbon Dioxide 18 L BUN 139 H Creatinine 3.7 H Glucose 227 H POC Glucose 226 H 244 H Lactic Acid Calcium 8.3 L Ionized Calcium Phosphorus Magnesium Direct Bilirubin AST ALT Alkaline Phosphatase Lactate Dehydrogenase Troponin T C-Reactive Protein Total Protein Albumin Prealbumin Triglycerides Cholesterol LDL Cholesterol Direct HDL Cholesterol 25-OH Vitamin D Total PTH Intact Urine pH Urine WBC (Auto) Urine Creatinine Urine Total Protein Fluid Total Protein Vancomycin Trough Rheumatoid Factor Complement C4 Miscellaneous Test Crossmatch 09/15/16 09/15/16 09/15/16 14:32 17:33 23:35 WBC RBC Hgb Hct MCV MCH MCHC RDW Plt Count Lymph % (Auto) [place] % (Auto) Lymph # [place] # Baso # Seg Neutrophils % Seg Neuts % (Manual) Lymphocytes % (Manual) Monocytes % (Manual) Eosinophils % (Manual) Basophils % (Manual) Nucleated RBC % Seg Neutrophils # Seg Neutrophils # Man Lymphocytes # (Manual) Monocytes # (Manual) Eosinophils # (Manual) Basophils # (Manual) PT INR Fibrinogen dRVVT Confirm Interp Factor V Activity POC ABG pH POC ABG pCO2 27.7 L POC ABG pO2 120 H ABG pO2 ABG HCO3 ABG Base Excess ABG Hemoglobin Oxyhemoglobin Sodium Potassium Chloride Carbon Dioxide BUN Creatinine Glucose POC Glucose 232 H 167 H Lactic Acid Calcium Ionized Calcium Phosphorus Magnesium Direct Bilirubin AST ALT Alkaline Phosphatase Lactate Dehydrogenase Troponin T C-Reactive Protein Total Protein Albumin Prealbumin Triglycerides Cholesterol LDL Cholesterol Direct HDL Cholesterol 25-OH Vitamin D Total PTH Intact Urine pH Urine WBC (Auto) Urine Creatinine Urine Total Protein Fluid Total Protein Vancomycin Trough Rheumatoid Factor Complement C4 Miscellaneous Test Crossmatch 09/16/16 09/16/16 09/16/16 03:58 10:27 10:27 WBC 19.0 H RBC 2.77 L Hgb 6.5 L Hct 20.9 L MCV 76 L MCH 23 L MCHC RDW 19.3 H Plt Count Lymph % (Auto) 11.0 L [place] % (Auto) Lymph # [place] # 1.1 H Baso # Seg Neutrophils % 82.5 H Seg Neuts % (Manual) Lymphocytes % (Manual) Monocytes % (Manual) Eosinophils % (Manual) Basophils % (Manual) Nucleated RBC % Seg Neutrophils # 15.7 H Seg Neutrophils # Man Lymphocytes # (Manual) Monocytes # (Manual) Eosinophils # (Manual) Basophils # (Manual) PT INR Fibrinogen dRVVT Confirm Interp Factor V Activity POC ABG pH POC ABG pCO2 POC ABG pO2 ABG pO2 ABG HCO3 ABG Base Excess ABG Hemoglobin Oxyhemoglobin Sodium Potassium Chloride 109.3 H Carbon Dioxide 18 L BUN 139 H Creatinine 4.1 H Glucose 144 H POC Glucose 146 H Lactic Acid Calcium 8.1 L Ionized Calcium Phosphorus Magnesium Direct Bilirubin AST ALT Alkaline Phosphatase Lactate Dehydrogenase Troponin T C-Reactive Protein Total Protein Albumin Prealbumin Triglycerides Cholesterol LDL Cholesterol Direct HDL Cholesterol 25-OH Vitamin D Total PTH Intact Urine pH Urine WBC (Auto) Urine Creatinine Urine Total Protein Fluid Total Protein Vancomycin Trough Rheumatoid Factor Complement C4 Miscellaneous Test Crossmatch 09/16/16 09/16/16 09/16/16 12:04 12:10 13:55 WBC RBC Hgb Hct MCV MCH MCHC RDW Plt Count Lymph % (Auto) [place] % (Auto) Lymph # [place] # Baso # Seg Neutrophils % Seg Neuts % (Manual) Lymphocytes % (Manual) Monocytes % (Manual) Eosinophils % (Manual) Basophils % (Manual) Nucleated RBC % Seg Neutrophils # Seg Neutrophils # Man Lymphocytes # (Manual) Monocytes # (Manual) Eosinophils # (Manual) Basophils # (Manual) PT INR Fibrinogen dRVVT Confirm Interp Factor V Activity POC ABG pH POC ABG pCO2 32.9 L POC ABG pO2 ABG pO2 ABG HCO3 ABG Base Excess ABG Hemoglobin Oxyhemoglobin Sodium Potassium Chloride Carbon Dioxide BUN Creatinine Glucose POC Glucose 185 H Lactic Acid Calcium Ionized Calcium Phosphorus Magnesium Direct Bilirubin AST ALT Alkaline Phosphatase Lactate Dehydrogenase Troponin T C-Reactive Protein Total Protein Albumin Prealbumin Triglycerides Cholesterol LDL Cholesterol Direct HDL Cholesterol 25-OH Vitamin D Total PTH Intact Urine pH Urine WBC (Auto) Urine Creatinine Urine Total Protein Fluid Total Protein Vancomycin Trough Rheumatoid Factor Complement C4 Miscellaneous Test Crossmatch See Detail 09/16/16 09/16/16 09/16/16 17:55 19:19 23:48 WBC RBC Hgb Hct MCV MCH MCHC RDW Plt Count Lymph % (Auto) [place] % (Auto) Lymph # [place] # Baso # Seg Neutrophils % Seg Neuts % (Manual) Lymphocytes % (Manual) Monocytes % (Manual) Eosinophils % (Manual) Basophils % (Manual) Nucleated RBC % Seg Neutrophils # Seg Neutrophils # Man Lymphocytes # (Manual) Monocytes # (Manual) Eosinophils # (Manual) Basophils # (Manual) PT INR Fibrinogen dRVVT Confirm Interp Factor V Activity POC ABG pH POC ABG pCO2 POC ABG pO2 ABG pO2 ABG HCO3 ABG Base Excess ABG Hemoglobin Oxyhemoglobin Sodium Potassium Chloride Carbon Dioxide BUN Creatinine Glucose POC Glucose 222 H 107 H Lactic Acid Calcium Ionized Calcium Phosphorus Magnesium Direct Bilirubin AST ALT Alkaline Phosphatase Lactate Dehydrogenase Troponin T C-Reactive Protein Total Protein Albumin Prealbumin Triglycerides Cholesterol LDL Cholesterol Direct HDL Cholesterol 25-OH Vitamin D Total PTH Intact Urine pH Urine WBC (Auto) Urine Creatinine 47.4 H Urine Total Protein 16 H Fluid Total Protein Vancomycin Trough Rheumatoid Factor Complement C4 Miscellaneous Test Crossmatch 09/17/16 09/17/16 09/17/16 03:45 03:45 04:55 WBC 19.6 H RBC 3.41 L Hgb 8.5 L Hct 26.7 L MCV 78 L MCH 25 L MCHC RDW 19.9 H Plt Count Lymph % (Auto) 9.3 L [place] % (Auto) Lymph # [place] # 1.2 H Baso # Seg Neutrophils % 83.9 H Seg Neuts % (Manual) Lymphocytes % (Manual) Monocytes % (Manual) Eosinophils % (Manual) Basophils % (Manual) Nucleated RBC % Seg Neutrophils # 16.4 H Seg Neutrophils # Man Lymphocytes # (Manual) Monocytes # (Manual) Eosinophils # (Manual) Basophils # (Manual) PT INR Fibrinogen dRVVT Confirm Interp Factor V Activity POC ABG pH POC ABG pCO2 POC ABG pO2 ABG pO2 ABG HCO3 ABG Base Excess ABG Hemoglobin Oxyhemoglobin Sodium 146 H Potassium 5.1 H Chloride 110.9 H Carbon Dioxide 16 L BUN 146 H Creatinine 4.0 H Glucose 108 H POC Glucose 133 H Lactic Acid Calcium Ionized Calcium Phosphorus Magnesium 3.00 H Direct Bilirubin AST ALT Alkaline Phosphatase Lactate Dehydrogenase Troponin T C-Reactive Protein Total Protein Albumin Prealbumin Triglycerides Cholesterol LDL Cholesterol Direct HDL Cholesterol 25-OH Vitamin D Total PTH Intact Urine pH Urine WBC (Auto) Urine Creatinine Urine Total Protein Fluid Total Protein Vancomycin Trough Rheumatoid Factor Complement C4 Miscellaneous Test Crossmatch 09/17/16 09/17/16 09/17/16 11:15 17:33 23:47 WBC RBC Hgb Hct MCV MCH MCHC RDW Plt Count Lymph % (Auto) [place] % (Auto) Lymph # [place] # Baso # Seg Neutrophils % Seg Neuts % (Manual) Lymphocytes % (Manual) Monocytes % (Manual) Eosinophils % (Manual) Basophils % (Manual) Nucleated RBC % Seg Neutrophils # Seg Neutrophils # Man Lymphocytes # (Manual) Monocytes # (Manual) Eosinophils # (Manual) Basophils # (Manual) PT INR Fibrinogen dRVVT Confirm Interp Factor V Activity POC ABG pH POC ABG pCO2 POC ABG pO2 ABG pO2 ABG HCO3 ABG Base Excess ABG Hemoglobin Oxyhemoglobin Sodium Potassium Chloride Carbon Dioxide BUN Creatinine Glucose POC Glucose 176 H 246 H 148 H Lactic Acid Calcium Ionized Calcium Phosphorus Magnesium Direct Bilirubin AST ALT Alkaline Phosphatase Lactate Dehydrogenase Troponin T C-Reactive Protein Total Protein Albumin Prealbumin Triglycerides Cholesterol LDL Cholesterol Direct HDL Cholesterol 25-OH Vitamin D Total PTH Intact Urine pH Urine WBC (Auto) Urine Creatinine Urine Total Protein Fluid Total Protein Vancomycin Trough Rheumatoid Factor Complement C4 Miscellaneous Test Crossmatch 09/18/16 09/18/16 09/18/16 05:33 08:31 08:31 WBC 18.0 H RBC 3.17 L Hgb 9.0 L Hct 25.7 L MCV MCH MCHC 35 H RDW 20.4 H Plt Count Lymph % (Auto) [place] % (Auto) Lymph # [place] # Baso # Seg Neutrophils % Seg Neuts % (Manual) Lymphocytes % (Manual) Monocytes % (Manual) Eosinophils % (Manual) Basophils % (Manual) Nucleated RBC % Seg Neutrophils # Seg Neutrophils # Man Lymphocytes # (Manual) Monocytes # (Manual) Eosinophils # (Manual) Basophils # (Manual) PT INR Fibrinogen dRVVT Confirm Interp Factor V Activity POC ABG pH POC ABG pCO2 POC ABG pO2 ABG pO2 ABG HCO3 ABG Base Excess ABG Hemoglobin Oxyhemoglobin Sodium Potassium Chloride Carbon Dioxide 15 L BUN 124 H Creatinine 3.8 H Glucose POC Glucose 120 H Lactic Acid Calcium 8.1 L Ionized Calcium Phosphorus Magnesium Direct Bilirubin AST ALT Alkaline Phosphatase Lactate Dehydrogenase Troponin T C-Reactive Protein Total Protein Albumin Prealbumin Triglycerides Cholesterol LDL Cholesterol Direct HDL Cholesterol 25-OH Vitamin D Total PTH Intact Urine pH Urine WBC (Auto) Urine Creatinine Urine Total Protein Fluid Total Protein Vancomycin Trough Rheumatoid Factor Complement C4 Miscellaneous Test Crossmatch 09/18/16 09/18/16 09/18/16 12:03 15:34 17:50 WBC RBC Hgb Hct MCV MCH MCHC RDW Plt Count Lymph % (Auto) [place] % (Auto) Lymph # [place] # Baso # Seg Neutrophils % Seg Neuts % (Manual) Lymphocytes % (Manual) Monocytes % (Manual) Eosinophils % (Manual) Basophils % (Manual) Nucleated RBC % Seg Neutrophils # Seg Neutrophils # Man Lymphocytes # (Manual) Monocytes # (Manual) Eosinophils # (Manual) Basophils # (Manual) PT INR Fibrinogen dRVVT Confirm Interp Factor V Activity POC ABG pH POC ABG pCO2 25.7 L POC ABG pO2 66 L ABG pO2 ABG HCO3 ABG Base Excess ABG Hemoglobin Oxyhemoglobin Sodium Potassium Chloride Carbon Dioxide BUN Creatinine Glucose POC Glucose 156 H 220 H Lactic Acid Calcium Ionized Calcium Phosphorus Magnesium Direct Bilirubin AST ALT Alkaline Phosphatase Lactate Dehydrogenase Troponin T C-Reactive Protein Total Protein Albumin Prealbumin Triglycerides Cholesterol LDL Cholesterol Direct HDL Cholesterol 25-OH Vitamin D Total PTH Intact Urine pH Urine WBC (Auto) Urine Creatinine Urine Total Protein Fluid Total Protein Vancomycin Trough Rheumatoid Factor Complement C4 Miscellaneous Test Crossmatch 09/19/16 09/19/16 09/19/16 06:21 09:50 09:50 WBC 17.1 H RBC 3.49 L Hgb 9.0 L Hct 28.1 L MCV MCH 26 L MCHC RDW 20.8 H Plt Count Lymph % (Auto) 11.5 L [place] % (Auto) 7.5 H Lymph # [place] # 1.3 H Baso # Seg Neutrophils % 79.8 H Seg Neuts % (Manual) Lymphocytes % (Manual) Monocytes % (Manual) Eosinophils % (Manual) Basophils % (Manual) Nucleated RBC % Seg Neutrophils # 13.7 H Seg Neutrophils # Man Lymphocytes # (Manual) Monocytes # (Manual) Eosinophils # (Manual) Basophils # (Manual) PT INR Fibrinogen dRVVT Confirm Interp Factor V Activity POC ABG pH POC ABG pCO2 POC ABG pO2 ABG pO2 ABG HCO3 ABG Base Excess ABG Hemoglobin Oxyhemoglobin Sodium Potassium Chloride 108.6 H Carbon Dioxide 15 L BUN 125 H Creatinine 4.1 H Glucose 124 H POC Glucose 119 H Lactic Acid Calcium Ionized Calcium Phosphorus Magnesium Direct Bilirubin AST ALT Alkaline Phosphatase Lactate Dehydrogenase Troponin T C-Reactive Protein Total Protein Albumin Prealbumin Triglycerides Cholesterol LDL Cholesterol Direct HDL Cholesterol 25-OH Vitamin D Total PTH Intact Urine pH Urine WBC (Auto) Urine Creatinine Urine Total Protein Fluid Total Protein Vancomycin Trough Rheumatoid Factor Complement C4 Miscellaneous Test Crossmatch 09/19/16 09/19/16 09/19/16 11:25 17:53 23:36 WBC RBC Hgb Hct MCV MCH MCHC RDW Plt Count Lymph % (Auto) [place] % (Auto) Lymph # [place] # Baso # Seg Neutrophils % Seg Neuts % (Manual) Lymphocytes % (Manual) Monocytes % (Manual) Eosinophils % (Manual) Basophils % (Manual) Nucleated RBC % Seg Neutrophils # Seg Neutrophils # Man Lymphocytes # (Manual) Monocytes # (Manual) Eosinophils # (Manual) Basophils # (Manual) PT INR Fibrinogen dRVVT Confirm Interp Factor V Activity POC ABG pH POC ABG pCO2 POC ABG pO2 ABG pO2 ABG HCO3 ABG Base Excess ABG Hemoglobin Oxyhemoglobin Sodium Potassium Chloride Carbon Dioxide BUN Creatinine Glucose POC Glucose 160 H 245 H 121 H Lactic Acid Calcium Ionized Calcium Phosphorus Magnesium Direct Bilirubin AST ALT Alkaline Phosphatase Lactate Dehydrogenase Troponin T C-Reactive Protein Total Protein Albumin Prealbumin Triglycerides Cholesterol LDL Cholesterol Direct HDL Cholesterol 25-OH Vitamin D Total PTH Intact Urine pH Urine WBC (Auto) Urine Creatinine Urine Total Protein Fluid Total Protein Vancomycin Trough Rheumatoid Factor Complement C4 Miscellaneous Test Crossmatch 09/20/16 09/20/16 09/20/16 04:10 04:10 04:10 WBC 17.0 H RBC 3.21 L Hgb 8.2 L Hct 25.5 L MCV MCH 26 L MCHC RDW 20.9 H Plt Count Lymph % (Auto) [place] % (Auto) Lymph # [place] # Baso # Seg Neutrophils % Seg Neuts % (Manual) Lymphocytes % (Manual) Monocytes % (Manual) Eosinophils % (Manual) Basophils % (Manual) Nucleated RBC % Seg Neutrophils # Seg Neutrophils # Man Lymphocytes # (Manual) Monocytes # (Manual) Eosinophils # (Manual) Basophils # (Manual) PT INR Fibrinogen dRVVT Confirm Interp Factor V Activity POC ABG pH POC ABG pCO2 POC ABG pO2 ABG pO2 ABG HCO3 ABG Base Excess ABG Hemoglobin Oxyhemoglobin Sodium Potassium Chloride 111.0 H Carbon Dioxide 16 L BUN 129 H Creatinine 3.7 H Glucose 115 H POC Glucose Lactic Acid Calcium 8.2 L Ionized Calcium Phosphorus Magnesium Direct Bilirubin AST ALT Alkaline Phosphatase Lactate Dehydrogenase Troponin T C-Reactive Protein Total Protein Albumin Prealbumin Triglycerides 243 H Cholesterol LDL Cholesterol Direct HDL Cholesterol 25-OH Vitamin D Total PTH Intact Urine pH Urine WBC (Auto) Urine Creatinine Urine Total Protein Fluid Total Protein Vancomycin Trough Rheumatoid Factor Complement C4 Miscellaneous Test Crossmatch 09/20/16 09/20/16 09/20/16 05:40 11:52 16:50 WBC RBC Hgb Hct MCV MCH MCHC RDW Plt Count Lymph % (Auto) [place] % (Auto) Lymph # [place] # Baso # Seg Neutrophils % Seg Neuts % (Manual) Lymphocytes % (Manual) Monocytes % (Manual) Eosinophils % (Manual) Basophils % (Manual) Nucleated RBC % Seg Neutrophils # Seg Neutrophils # Man Lymphocytes # (Manual) Monocytes # (Manual) Eosinophils # (Manual) Basophils # (Manual) PT INR Fibrinogen dRVVT Confirm Interp Factor V Activity POC ABG pH POC ABG pCO2 POC ABG pO2 ABG pO2 ABG HCO3 ABG Base Excess ABG Hemoglobin Oxyhemoglobin Sodium Potassium Chloride Carbon Dioxide BUN Creatinine Glucose POC Glucose 131 H 183 H 236 H Lactic Acid Calcium Ionized Calcium Phosphorus Magnesium Direct Bilirubin AST ALT Alkaline Phosphatase Lactate Dehydrogenase Troponin T C-Reactive Protein Total Protein Albumin Prealbumin Triglycerides Cholesterol LDL Cholesterol Direct HDL Cholesterol 25-OH Vitamin D Total PTH Intact Urine pH Urine WBC (Auto) Urine Creatinine Urine Total Protein Fluid Total Protein Vancomycin Trough Rheumatoid Factor Complement C4 Miscellaneous Test Crossmatch 09/20/16 09/21/16 09/21/16 23:51 03:30 04:44 WBC RBC Hgb Hct MCV MCH MCHC RDW Plt Count Lymph % (Auto) [place] % (Auto) Lymph # [place] # Baso # Seg Neutrophils % Seg Neuts % (Manual) Lymphocytes % (Manual) Monocytes % (Manual) Eosinophils % (Manual) Basophils % (Manual) Nucleated RBC % Seg Neutrophils # Seg Neutrophils # Man Lymphocytes # (Manual) Monocytes # (Manual) Eosinophils # (Manual) Basophils # (Manual) PT INR Fibrinogen dRVVT Confirm Interp Factor V Activity POC ABG pH POC ABG pCO2 POC ABG pO2 ABG pO2 ABG HCO3 ABG Base Excess ABG Hemoglobin Oxyhemoglobin Sodium Potassium Chloride Carbon Dioxide BUN Creatinine Glucose POC Glucose 114 H 141 H Lactic Acid Calcium Ionized Calcium Phosphorus Magnesium 2.70 H Direct Bilirubin AST ALT Alkaline Phosphatase Lactate Dehydrogenase Troponin T C-Reactive Protein Total Protein Albumin Prealbumin Triglycerides Cholesterol LDL Cholesterol Direct HDL Cholesterol 25-OH Vitamin D Total PTH Intact Urine pH Urine WBC (Auto) Urine Creatinine Urine Total Protein Fluid Total Protein Vancomycin Trough Rheumatoid Factor Complement C4 Miscellaneous Test Crossmatch 09/21/16 09/21/16 09/21/16 07:45 07:45 10:01 WBC 13.8 H RBC 2.94 L Hgb 7.5 L Hct 23.5 L MCV MCH 26 L MCHC RDW 21.2 H Plt Count Lymph % (Auto) 6.9 L [place] % (Auto) 9.4 H Lymph # 0.9 L [place] # 1.3 H Baso # Seg Neutrophils % 83.2 H Seg Neuts % (Manual) Lymphocytes % (Manual) Monocytes % (Manual) Eosinophils % (Manual) Basophils % (Manual) Nucleated RBC % Seg Neutrophils # 11.5 H Seg Neutrophils # Man Lymphocytes # (Manual) Monocytes # (Manual) Eosinophils # (Manual) Basophils # (Manual) PT INR Fibrinogen dRVVT Confirm Interp Factor V Activity POC ABG pH 7.308 L POC ABG pCO2 31.9 L POC ABG pO2 148 H ABG pO2 ABG HCO3 ABG Base Excess ABG Hemoglobin Oxyhemoglobin Sodium 147 H Potassium Chloride 114.2 H Carbon Dioxide 15 L BUN 120 H Creatinine 3.9 H Glucose 156 H POC Glucose Lactic Acid Calcium 8.2 L Ionized Calcium Phosphorus Magnesium Direct Bilirubin AST ALT Alkaline Phosphatase Lactate Dehydrogenase Troponin T C-Reactive Protein Total Protein Albumin Prealbumin Triglycerides Cholesterol LDL Cholesterol Direct HDL Cholesterol 25-OH Vitamin D Total PTH Intact Urine pH Urine WBC (Auto) Urine Creatinine Urine Total Protein Fluid Total Protein Vancomycin Trough Rheumatoid Factor Complement C4 Miscellaneous Test Crossmatch 09/21/16 09/21/16 09/21/16 12:00 12:03 13:00 WBC RBC Hgb Hct MCV MCH MCHC RDW Plt Count Lymph % (Auto) [place] % (Auto) Lymph # [place] # Baso # Seg Neutrophils % Seg Neuts % (Manual) Lymphocytes % (Manual) Monocytes % (Manual) Eosinophils % (Manual) Basophils % (Manual) Nucleated RBC % Seg Neutrophils # Seg Neutrophils # Man Lymphocytes # (Manual) Monocytes # (Manual) Eosinophils # (Manual) Basophils # (Manual) PT INR Fibrinogen dRVVT Confirm Interp Factor V Activity POC ABG pH POC ABG pCO2 POC ABG pO2 ABG pO2 ABG HCO3 ABG Base Excess ABG Hemoglobin Oxyhemoglobin Sodium Potassium Chloride Carbon Dioxide BUN Creatinine Glucose POC Glucose 163 H Lactic Acid Calcium Ionized Calcium Phosphorus Magnesium Direct Bilirubin AST ALT Alkaline Phosphatase Lactate Dehydrogenase Troponin T C-Reactive Protein Total Protein Albumin Prealbumin Triglycerides Cholesterol LDL Cholesterol Direct HDL Cholesterol 25-OH Vitamin D Total PTH Intact Urine pH Urine WBC (Auto) Urine Creatinine 54.8 H Urine Total Protein Fluid Total Protein Vancomycin Trough 2.3 L Rheumatoid Factor Complement C4 Miscellaneous Test Crossmatch 09/21/16 09/21/16 09/22/16 16:51 23:17 06:27 WBC RBC Hgb Hct MCV MCH MCHC RDW Plt Count Lymph % (Auto) [place] % (Auto) Lymph # [place] # Baso # Seg Neutrophils % Seg Neuts % (Manual) Lymphocytes % (Manual) Monocytes % (Manual) Eosinophils % (Manual) Basophils % (Manual) Nucleated RBC % Seg Neutrophils # Seg Neutrophils # Man Lymphocytes # (Manual) Monocytes # (Manual) Eosinophils # (Manual) Basophils # (Manual) PT INR Fibrinogen dRVVT Confirm Interp Factor V Activity POC ABG pH POC ABG pCO2 POC ABG pO2 ABG pO2 ABG HCO3 ABG Base Excess ABG Hemoglobin Oxyhemoglobin Sodium Potassium Chloride Carbon Dioxide BUN Creatinine Glucose POC Glucose 206 H 114 H 115 H Lactic Acid Calcium Ionized Calcium Phosphorus Magnesium Direct Bilirubin AST ALT Alkaline Phosphatase Lactate Dehydrogenase Troponin T C-Reactive Protein Total Protein Albumin Prealbumin Triglycerides Cholesterol LDL Cholesterol Direct HDL Cholesterol 25-OH Vitamin D Total PTH Intact Urine pH Urine WBC (Auto) Urine Creatinine Urine Total Protein Fluid Total Protein Vancomycin Trough Rheumatoid Factor Complement C4 Miscellaneous Test Crossmatch 09/22/16 09/22/16 09/22/16 07:50 07:50 12:00 WBC 17.8 H RBC 3.04 L Hgb 8.0 L Hct 24.7 L MCV MCH 26 L MCHC RDW 21.6 H Plt Count Lymph % (Auto) [place] % (Auto) Lymph # [place] # Baso # Seg Neutrophils % Seg Neuts % (Manual) Lymphocytes % (Manual) Monocytes % (Manual) Eosinophils % (Manual) Basophils % (Manual) Nucleated RBC % Seg Neutrophils # Seg Neutrophils # Man Lymphocytes # (Manual) Monocytes # (Manual) Eosinophils # (Manual) Basophils # (Manual) PT INR Fibrinogen dRVVT Confirm Interp Factor V Activity POC ABG pH POC ABG pCO2 POC ABG pO2 ABG pO2 ABG HCO3 ABG Base Excess ABG Hemoglobin Oxyhemoglobin Sodium 150 H Potassium Chloride 118.2 H Carbon Dioxide 14 L BUN 111 H Creatinine 3.7 H Glucose 157 H POC Glucose 183 H Lactic Acid Calcium Ionized Calcium Phosphorus Magnesium Direct Bilirubin AST ALT Alkaline Phosphatase Lactate Dehydrogenase Troponin T C-Reactive Protein Total Protein Albumin Prealbumin Triglycerides Cholesterol LDL Cholesterol Direct HDL Cholesterol 25-OH Vitamin D Total PTH Intact Urine pH Urine WBC (Auto) Urine Creatinine Urine Total Protein Fluid Total Protein Vancomycin Trough Rheumatoid Factor Complement C4 Miscellaneous Test Crossmatch 09/22/16 09/22/16 09/23/16 17:29 23:10 05:00 WBC 19.2 H RBC 3.13 L Hgb 8.0 L Hct 25.2 L MCV MCH 26 L MCHC RDW 22.1 H Plt Count Lymph % (Auto) [place] % (Auto) Lymph # [place] # Baso # Seg Neutrophils % Seg Neuts % (Manual) 92.0 H Lymphocytes % (Manual) 3.0 L Monocytes % (Manual) Eosinophils % (Manual) Basophils % (Manual) Nucleated RBC % Seg Neutrophils # Seg Neutrophils # Man 17.7 H Lymphocytes # (Manual) 0.6 L Monocytes # (Manual) Eosinophils # (Manual) Basophils # (Manual) PT INR Fibrinogen dRVVT Confirm Interp Factor V Activity POC ABG pH POC ABG pCO2 POC ABG pO2 ABG pO2 ABG HCO3 ABG Base Excess ABG Hemoglobin Oxyhemoglobin Sodium Potassium Chloride Carbon Dioxide BUN Creatinine Glucose POC Glucose 197 H 169 H Lactic Acid Calcium Ionized Calcium Phosphorus Magnesium Direct Bilirubin AST ALT Alkaline Phosphatase Lactate Dehydrogenase Troponin T C-Reactive Protein Total Protein Albumin Prealbumin Triglycerides Cholesterol LDL Cholesterol Direct HDL Cholesterol 25-OH Vitamin D Total PTH Intact Urine pH Urine WBC (Auto) Urine Creatinine Urine Total Protein Fluid Total Protein Vancomycin Trough Rheumatoid Factor Complement C4 Miscellaneous Test Crossmatch 09/23/16 09/23/16 09/23/16 05:00 05:00 05:10 WBC RBC Hgb Hct MCV MCH MCHC RDW Plt Count Lymph % (Auto) [place] % (Auto) Lymph # [place] # Baso # Seg Neutrophils % Seg Neuts % (Manual) Lymphocytes % (Manual) Monocytes % (Manual) Eosinophils % (Manual) Basophils % (Manual) Nucleated RBC % Seg Neutrophils # Seg Neutrophils # Man Lymphocytes # (Manual) Monocytes # (Manual) Eosinophils # (Manual) Basophils # (Manual) PT INR Fibrinogen dRVVT Confirm Interp Factor V Activity POC ABG pH POC ABG pCO2 POC ABG pO2 ABG pO2 ABG HCO3 ABG Base Excess ABG Hemoglobin Oxyhemoglobin Sodium 147 H Potassium 3.2 L Chloride 115.7 H Carbon Dioxide 13 L BUN 111 H Creatinine 3.8 H Glucose 194 H POC Glucose 188 H Lactic Acid Calcium 7.3 L D Ionized Calcium Phosphorus Magnesium Direct Bilirubin AST ALT Alkaline Phosphatase Lactate Dehydrogenase Troponin T C-Reactive Protein 3.20 H Total Protein Albumin Prealbumin Triglycerides Cholesterol LDL Cholesterol Direct HDL Cholesterol 25-OH Vitamin D Total PTH Intact Urine pH Urine WBC (Auto) Urine Creatinine Urine Total Protein Fluid Total Protein Vancomycin Trough Rheumatoid Factor Complement C4 Miscellaneous Test Crossmatch 09/23/16 09/23/16 09/23/16 11:37 12:29 18:01 WBC RBC Hgb Hct MCV MCH MCHC RDW Plt Count Lymph % (Auto) [place] % (Auto) Lymph # [place] # Baso # Seg Neutrophils % Seg Neuts % (Manual) Lymphocytes % (Manual) Monocytes % (Manual) Eosinophils % (Manual) Basophils % (Manual) Nucleated RBC % Seg Neutrophils # Seg Neutrophils # Man Lymphocytes # (Manual) Monocytes # (Manual) Eosinophils # (Manual) Basophils # (Manual) PT INR Fibrinogen dRVVT Confirm Interp Factor V Activity POC ABG pH POC ABG pCO2 18.9 L POC ABG pO2 143 H ABG pO2 ABG HCO3 ABG Base Excess ABG Hemoglobin Oxyhemoglobin Sodium Potassium Chloride Carbon Dioxide BUN Creatinine Glucose POC Glucose 153 H 108 H Lactic Acid Calcium Ionized Calcium Phosphorus Magnesium Direct Bilirubin AST ALT Alkaline Phosphatase Lactate Dehydrogenase Troponin T C-Reactive Protein Total Protein Albumin Prealbumin Triglycerides Cholesterol LDL Cholesterol Direct HDL Cholesterol 25-OH Vitamin D Total PTH Intact Urine pH Urine WBC (Auto) Urine Creatinine Urine Total Protein Fluid Total Protein Vancomycin Trough Rheumatoid Factor Complement C4 Miscellaneous Test Crossmatch 09/23/16 09/23/16 09/24/16 21:19 23:43 05:16 WBC RBC Hgb Hct MCV MCH MCHC RDW Plt Count Lymph % (Auto) [place] % (Auto) Lymph # [place] # Baso # Seg Neutrophils % Seg Neuts % (Manual) Lymphocytes % (Manual) Monocytes % (Manual) Eosinophils % (Manual) Basophils % (Manual) Nucleated RBC % Seg Neutrophils # Seg Neutrophils # Man Lymphocytes # (Manual) Monocytes # (Manual) Eosinophils # (Manual) Basophils # (Manual) PT INR Fibrinogen dRVVT Confirm Interp Factor V Activity POC ABG pH POC ABG pCO2 17.3 L POC ABG pO2 112 H ABG pO2 ABG HCO3 ABG Base Excess ABG Hemoglobin Oxyhemoglobin Sodium Potassium Chloride Carbon Dioxide BUN Creatinine Glucose POC Glucose 143 H 164 H Lactic Acid Calcium Ionized Calcium Phosphorus Magnesium Direct Bilirubin AST ALT Alkaline Phosphatase Lactate Dehydrogenase Troponin T C-Reactive Protein Total Protein Albumin Prealbumin Triglycerides Cholesterol LDL Cholesterol Direct HDL Cholesterol 25-OH Vitamin D Total PTH Intact Urine pH Urine WBC (Auto) Urine Creatinine Urine Total Protein Fluid Total Protein Vancomycin Trough Rheumatoid Factor Complement C4 Miscellaneous Test Crossmatch 09/24/16 09/24/16 09/24/16 05:21 11:58 17:06 WBC RBC Hgb Hct MCV MCH MCHC RDW Plt Count Lymph % (Auto) [place] % (Auto) Lymph # [place] # Baso # Seg Neutrophils % Seg Neuts % (Manual) Lymphocytes % (Manual) Monocytes % (Manual) Eosinophils % (Manual) Basophils % (Manual) Nucleated RBC % Seg Neutrophils # Seg Neutrophils # Man Lymphocytes # (Manual) Monocytes # (Manual) Eosinophils # (Manual) Basophils # (Manual) PT INR Fibrinogen dRVVT Confirm Interp Factor V Activity POC ABG pH POC ABG pCO2 POC ABG pO2 ABG pO2 ABG HCO3 ABG Base Excess ABG Hemoglobin Oxyhemoglobin Sodium Potassium Chloride Carbon Dioxide 10 L BUN 103 H Creatinine 4.3 H Glucose 163 H POC Glucose 173 H 167 H Lactic Acid Calcium 6.5 L Ionized Calcium Phosphorus Magnesium Direct Bilirubin AST ALT Alkaline Phosphatase Lactate Dehydrogenase Troponin T C-Reactive Protein Total Protein Albumin Prealbumin Triglycerides Cholesterol LDL Cholesterol Direct HDL Cholesterol 25-OH Vitamin D Total PTH Intact Urine pH Urine WBC (Auto) Urine Creatinine Urine Total Protein Fluid Total Protein Vancomycin Trough Rheumatoid Factor Complement C4 Miscellaneous Test Crossmatch 09/24/16 09/24/16 09/24/16 20:15 21:02 23:48 WBC RBC Hgb Hct MCV MCH MCHC RDW Plt Count Lymph % (Auto) [place] % (Auto) Lymph # [place] # Baso # Seg Neutrophils % Seg Neuts % (Manual) Lymphocytes % (Manual) Monocytes % (Manual) Eosinophils % (Manual) Basophils % (Manual) Nucleated RBC % Seg Neutrophils # Seg Neutrophils # Man Lymphocytes # (Manual) Monocytes # (Manual) Eosinophils # (Manual) Basophils # (Manual) PT INR Fibrinogen dRVVT Confirm Interp Factor V Activity POC ABG pH 7.288 L POC ABG pCO2 30.2 L 21.5 L POC ABG pO2 32 L 39 L ABG pO2 ABG HCO3 ABG Base Excess ABG Hemoglobin Oxyhemoglobin Sodium Potassium Chloride Carbon Dioxide BUN Creatinine Glucose POC Glucose 109 H Lactic Acid Calcium Ionized Calcium Phosphorus Magnesium Direct Bilirubin AST ALT Alkaline Phosphatase Lactate Dehydrogenase Troponin T C-Reactive Protein Total Protein Albumin Prealbumin Triglycerides Cholesterol LDL Cholesterol Direct HDL Cholesterol 25-OH Vitamin D Total PTH Intact Urine pH Urine WBC (Auto) Urine Creatinine Urine Total Protein Fluid Total Protein Vancomycin Trough Rheumatoid Factor Complement C4 Miscellaneous Test Crossmatch 09/25/16 09/25/16 09/25/16 04:20 04:20 04:20 WBC RBC 2.58 L Hgb 7.0 L Hct 21.0 L MCV MCH 27 L MCHC RDW 23.8 H Plt Count Lymph % (Auto) [place] % (Auto) Lymph # [place] # Baso # Seg Neutrophils % Seg Neuts % (Manual) Lymphocytes % (Manual) 12.0 L Monocytes % (Manual) Eosinophils % (Manual) 7.0 H Basophils % (Manual) 2.0 H Nucleated RBC % Seg Neutrophils # Seg Neutrophils # Man Lymphocytes # (Manual) 0.9 L Monocytes # (Manual) Eosinophils # (Manual) 0.5 H Basophils # (Manual) PT INR Fibrinogen dRVVT Confirm Interp Factor V Activity POC ABG pH POC ABG pCO2 POC ABG pO2 ABG pO2 ABG HCO3 ABG Base Excess ABG Hemoglobin Oxyhemoglobin Sodium Potassium Chloride Carbon Dioxide 15 L BUN 72 H Creatinine 3.8 H Glucose POC Glucose Lactic Acid Calcium 6.0 L Ionized Calcium Phosphorus 4.60 H Magnesium 1.60 L Direct Bilirubin AST ALT Alkaline Phosphatase Lactate Dehydrogenase Troponin T C-Reactive Protein Total Protein Albumin Prealbumin Triglycerides Cholesterol LDL Cholesterol Direct HDL Cholesterol 25-OH Vitamin D Total PTH Intact Urine pH Urine WBC (Auto) Urine Creatinine Urine Total Protein Fluid Total Protein Vancomycin Trough Rheumatoid Factor Complement C4 Miscellaneous Test Crossmatch 09/25/16 09/25/16 09/25/16 04:57 08:02 10:30 WBC RBC Hgb Hct MCV MCH MCHC RDW Plt Count Lymph % (Auto) [place] % (Auto) Lymph # [place] # Baso # Seg Neutrophils % Seg Neuts % (Manual) Lymphocytes % (Manual) Monocytes % (Manual) Eosinophils % (Manual) Basophils % (Manual) Nucleated RBC % Seg Neutrophils # Seg Neutrophils # Man Lymphocytes # (Manual) Monocytes # (Manual) Eosinophils # (Manual) Basophils # (Manual) PT INR Fibrinogen dRVVT Confirm Interp Factor V Activity POC ABG pH POC ABG pCO2 24.7 L POC ABG pO2 152 H ABG pO2 ABG HCO3 ABG Base Excess ABG Hemoglobin Oxyhemoglobin Sodium Potassium Chloride Carbon Dioxide BUN Creatinine Glucose POC Glucose 113 H Lactic Acid Calcium Ionized Calcium Phosphorus Magnesium Direct Bilirubin AST ALT Alkaline Phosphatase Lactate Dehydrogenase Troponin T C-Reactive Protein Total Protein Albumin Prealbumin Triglycerides Cholesterol LDL Cholesterol Direct HDL Cholesterol 25-OH Vitamin D Total PTH Intact Urine pH Urine WBC (Auto) Urine Creatinine Urine Total Protein Fluid Total Protein Vancomycin Trough Rheumatoid Factor Complement C4 Miscellaneous Test Crossmatch See Detail 09/25/16 09/25/16 09/25/16 12:05 17:44 23:47 WBC RBC Hgb Hct MCV MCH MCHC RDW Plt Count Lymph % (Auto) [place] % (Auto) Lymph # [place] # Baso # Seg Neutrophils % Seg Neuts % (Manual) Lymphocytes % (Manual) Monocytes % (Manual) Eosinophils % (Manual) Basophils % (Manual) Nucleated RBC % Seg Neutrophils # Seg Neutrophils # Man Lymphocytes # (Manual) Monocytes # (Manual) Eosinophils # (Manual) Basophils # (Manual) PT INR Fibrinogen dRVVT Confirm Interp Factor V Activity POC ABG pH POC ABG pCO2 POC ABG pO2 ABG pO2 ABG HCO3 ABG Base Excess ABG Hemoglobin Oxyhemoglobin Sodium Potassium Chloride Carbon Dioxide BUN Creatinine Glucose POC Glucose 117 H 119 H 150 H Lactic Acid Calcium Ionized Calcium Phosphorus Magnesium Direct Bilirubin AST ALT Alkaline Phosphatase Lactate Dehydrogenase Troponin T C-Reactive Protein Total Protein Albumin Prealbumin Triglycerides Cholesterol LDL Cholesterol Direct HDL Cholesterol 25-OH Vitamin D Total PTH Intact Urine pH Urine WBC (Auto) Urine Creatinine Urine Total Protein Fluid Total Protein Vancomycin Trough Rheumatoid Factor Complement C4 Miscellaneous Test Crossmatch 09/26/16 09/26/16 09/26/16 04:25 04:25 04:25 WBC RBC 2.65 L Hgb 7.4 L Hct 21.6 L MCV MCH MCHC RDW 22.5 H Plt Count Lymph % (Auto) [place] % (Auto) Lymph # [place] # Baso # Seg Neutrophils % Seg Neuts % (Manual) Lymphocytes % (Manual) 6.0 L Monocytes % (Manual) Eosinophils % (Manual) 11.0 H Basophils % (Manual) Nucleated RBC % Seg Neutrophils # Seg Neutrophils # Man Lymphocytes # (Manual) 0.4 L Monocytes # (Manual) Eosinophils # (Manual) 0.6 H Basophils # (Manual) PT INR Fibrinogen dRVVT Confirm Interp Factor V Activity POC ABG pH POC ABG pCO2 POC ABG pO2 ABG pO2 ABG HCO3 ABG Base Excess ABG Hemoglobin Oxyhemoglobin Sodium Potassium Chloride 97.0 L Carbon Dioxide 19 L BUN 43 H Creatinine 2.6 H Glucose 130 H POC Glucose Lactic Acid 4.40 H* Calcium 6.7 L Ionized Calcium Phosphorus Magnesium Direct Bilirubin AST ALT Alkaline Phosphatase Lactate Dehydrogenase Troponin T C-Reactive Protein Total Protein Albumin Prealbumin Triglycerides Cholesterol LDL Cholesterol Direct HDL Cholesterol 25-OH Vitamin D Total PTH Intact Urine pH Urine WBC (Auto) Urine Creatinine Urine Total Protein Fluid Total Protein Vancomycin Trough Rheumatoid Factor Complement C4 Miscellaneous Test Crossmatch 09/26/16 09/26/16 09/26/16 05:20 11:44 12:12 WBC RBC Hgb Hct MCV MCH MCHC RDW Plt Count Lymph % (Auto) [place] % (Auto) Lymph # [place] # Baso # Seg Neutrophils % Seg Neuts % (Manual) Lymphocytes % (Manual) Monocytes % (Manual) Eosinophils % (Manual) Basophils % (Manual) Nucleated RBC % Seg Neutrophils # Seg Neutrophils # Man Lymphocytes # (Manual) Monocytes # (Manual) Eosinophils # (Manual) Basophils # (Manual) PT INR Fibrinogen dRVVT Confirm Interp Factor V Activity POC ABG pH POC ABG pCO2 27.0 L POC ABG pO2 69 L ABG pO2 ABG HCO3 ABG Base Excess ABG Hemoglobin Oxyhemoglobin Sodium Potassium Chloride Carbon Dioxide BUN Creatinine Glucose POC Glucose 121 H 128 H Lactic Acid Calcium Ionized Calcium Phosphorus Magnesium Direct Bilirubin AST ALT Alkaline Phosphatase Lactate Dehydrogenase Troponin T C-Reactive Protein Total Protein Albumin Prealbumin Triglycerides Cholesterol LDL Cholesterol Direct HDL Cholesterol 25-OH Vitamin D Total PTH Intact Urine pH Urine WBC (Auto) Urine Creatinine Urine Total Protein Fluid Total Protein Vancomycin Trough Rheumatoid Factor Complement C4 Miscellaneous Test Crossmatch 09/26/16 09/26/16 09/27/16 18:31 23:40 08:20 WBC RBC Hgb Hct MCV MCH MCHC RDW Plt Count Lymph % (Auto) [place] % (Auto) Lymph # [place] # Baso # Seg Neutrophils % Seg Neuts % (Manual) Lymphocytes % (Manual) Monocytes % (Manual) Eosinophils % (Manual) Basophils % (Manual) Nucleated RBC % Seg Neutrophils # Seg Neutrophils # Man Lymphocytes # (Manual) Monocytes # (Manual) Eosinophils # (Manual) Basophils # (Manual) PT INR Fibrinogen dRVVT Confirm Interp Factor V Activity POC ABG pH POC ABG pCO2 POC ABG pO2 ABG pO2 ABG HCO3 ABG Base Excess ABG Hemoglobin Oxyhemoglobin Sodium Potassium Chloride Carbon Dioxide BUN Creatinine Glucose POC Glucose 120 H 133 H Lactic Acid 4.10 H* Calcium Ionized Calcium Phosphorus Magnesium Direct Bilirubin AST ALT Alkaline Phosphatase Lactate Dehydrogenase Troponin T C-Reactive Protein Total Protein Albumin Prealbumin Triglycerides Cholesterol LDL Cholesterol Direct HDL Cholesterol 25-OH Vitamin D Total PTH Intact Urine pH Urine WBC (Auto) Urine Creatinine Urine Total Protein Fluid Total Protein Vancomycin Trough Rheumatoid Factor Complement C4 Miscellaneous Test Crossmatch 09/27/16 09/27/16 09/27/16 11:23 15:00 18:15 WBC RBC Hgb Hct MCV MCH MCHC RDW Plt Count Lymph % (Auto) [place] % (Auto) Lymph # [place] # Baso # Seg Neutrophils % Seg Neuts % (Manual) Lymphocytes % (Manual) Monocytes % (Manual) Eosinophils % (Manual) Basophils % (Manual) Nucleated RBC % Seg Neutrophils # Seg Neutrophils # Man Lymphocytes # (Manual) Monocytes # (Manual) Eosinophils # (Manual) Basophils # (Manual) PT INR Fibrinogen dRVVT Confirm Interp Factor V Activity POC ABG pH 7.459 H POC ABG pCO2 27.1 L POC ABG pO2 140 H ABG pO2 ABG HCO3 ABG Base Excess ABG Hemoglobin Oxyhemoglobin Sodium Potassium Chloride Carbon Dioxide BUN Creatinine Glucose POC Glucose 114 H 127 H Lactic Acid Calcium Ionized Calcium Phosphorus Magnesium Direct Bilirubin AST ALT Alkaline Phosphatase Lactate Dehydrogenase Troponin T C-Reactive Protein Total Protein Albumin Prealbumin Triglycerides Cholesterol LDL Cholesterol Direct HDL Cholesterol 25-OH Vitamin D Total PTH Intact Urine pH Urine WBC (Auto) Urine Creatinine Urine Total Protein Fluid Total Protein Vancomycin Trough Rheumatoid Factor Complement C4 Miscellaneous Test Crossmatch 09/27/16 09/27/16 09/28/16 Unknown Unknown 03:45 WBC RBC 2.49 L Hgb 6.8 L Hct 20.7 L MCV MCH 27 L MCHC RDW 22.1 H Plt Count Lymph % (Auto) [place] % (Auto) Lymph # [place] # Baso # Seg Neutrophils % Seg Neuts % (Manual) 32.0 L Lymphocytes % (Manual) 12.0 L Monocytes % (Manual) 11.0 H Eosinophils % (Manual) 10.0 H Basophils % (Manual) Nucleated RBC % Seg Neutrophils # Seg Neutrophils # Man Lymphocytes # (Manual) 1.0 L Monocytes # (Manual) 0.9 H Eosinophils # (Manual) 0.8 H Basophils # (Manual) PT INR Fibrinogen dRVVT Confirm Interp Factor V Activity POC ABG pH POC ABG pCO2 POC ABG pO2 ABG pO2 ABG HCO3 ABG Base Excess ABG Hemoglobin Oxyhemoglobin Sodium 135 L 135 L Potassium 3.5 L Chloride 93.6 L 94.4 L Carbon Dioxide 17 L 21 L BUN 45 H 28 H Creatinine 3.3 H 2.5 H Glucose 106 H POC Glucose Lactic Acid Calcium 7.3 L 7.1 L Ionized Calcium Phosphorus Magnesium Direct Bilirubin AST ALT Alkaline Phosphatase Lactate Dehydrogenase Troponin T C-Reactive Protein Total Protein Albumin Prealbumin Triglycerides Cholesterol LDL Cholesterol Direct HDL Cholesterol 25-OH Vitamin D Total PTH Intact Urine pH Urine WBC (Auto) Urine Creatinine Urine Total Protein Fluid Total Protein Vancomycin Trough Rheumatoid Factor Complement C4 Miscellaneous Test Crossmatch 09/28/16 09/28/16 09/28/16 03:45 07:25 11:58 WBC 13.3 H RBC 3.01 L Hgb 8.4 L Hct 25.0 L MCV MCH MCHC RDW 20.5 H Plt Count 128 L Lymph % (Auto) [place] % (Auto) Lymph # [place] # Baso # Seg Neutrophils % Seg Neuts % (Manual) Lymphocytes % (Manual) 7.0 L Monocytes % (Manual) Eosinophils % (Manual) 6.0 H Basophils % (Manual) Nucleated RBC % Seg Neutrophils # Seg Neutrophils # Man Lymphocytes # (Manual) 0.9 L Monocytes # (Manual) Eosinophils # (Manual) 0.8 H Basophils # (Manual) PT INR Fibrinogen dRVVT Confirm Interp Factor V Activity POC ABG pH POC ABG pCO2 POC ABG pO2 ABG pO2 ABG HCO3 ABG Base Excess ABG Hemoglobin Oxyhemoglobin Sodium Potassium Chloride Carbon Dioxide BUN Creatinine Glucose POC Glucose 121 H Lactic Acid 4.50 H* Calcium Ionized Calcium Phosphorus Magnesium Direct Bilirubin AST ALT Alkaline Phosphatase Lactate Dehydrogenase Troponin T C-Reactive Protein Total Protein Albumin Prealbumin Triglycerides Cholesterol LDL Cholesterol Direct HDL Cholesterol 25-OH Vitamin D Total PTH Intact Urine pH Urine WBC (Auto) Urine Creatinine Urine Total Protein Fluid Total Protein Vancomycin Trough Rheumatoid Factor Complement C4 Miscellaneous Test Crossmatch 09/29/16 09/29/16 09/29/16 06:45 06:45 06:45 WBC 14.9 H RBC 2.74 L Hgb 7.6 L Hct 23.2 L MCV MCH MCHC RDW 20.5 H Plt Count 81 L Lymph % (Auto) [place] % (Auto) Lymph # [place] # Baso # Seg Neutrophils % Seg Neuts % (Manual) 81.0 H Lymphocytes % (Manual) 4.0 L Monocytes % (Manual) Eosinophils % (Manual) Basophils % (Manual) Nucleated RBC % Seg Neutrophils # Seg Neutrophils # Man 12.1 H Lymphocytes # (Manual) 0.6 L Monocytes # (Manual) Eosinophils # (Manual) Basophils # (Manual) PT INR Fibrinogen dRVVT Confirm Interp Factor V Activity POC ABG pH POC ABG pCO2 POC ABG pO2 ABG pO2 ABG HCO3 ABG Base Excess ABG Hemoglobin Oxyhemoglobin Sodium 133 L Potassium 3.4 L Chloride 92.5 L Carbon Dioxide 21 L BUN 33 H Creatinine 3.0 H Glucose POC Glucose Lactic Acid Calcium 6.6 L Ionized Calcium Phosphorus Magnesium 1.40 L Direct Bilirubin 0.9 H AST ALT Alkaline Phosphatase Lactate Dehydrogenase Troponin T C-Reactive Protein Total Protein 4.3 L Albumin 1.3 L Prealbumin Triglycerides Cholesterol LDL Cholesterol Direct HDL Cholesterol 25-OH Vitamin D Total PTH Intact Urine pH Urine WBC (Auto) Urine Creatinine Urine Total Protein Fluid Total Protein Vancomycin Trough Rheumatoid Factor Complement C4 Miscellaneous Test Crossmatch 09/29/16 09/29/16 09/30/16 17:52 20:12 00:07 WBC RBC Hgb Hct MCV MCH MCHC RDW Plt Count Lymph % (Auto) [place] % (Auto) Lymph # [place] # Baso # Seg Neutrophils % Seg Neuts % (Manual) Lymphocytes % (Manual) Monocytes % (Manual) Eosinophils % (Manual) Basophils % (Manual) Nucleated RBC % Seg Neutrophils # Seg Neutrophils # Man Lymphocytes # (Manual) Monocytes # (Manual) Eosinophils # (Manual) Basophils # (Manual) PT INR Fibrinogen dRVVT Confirm Interp Factor V Activity POC ABG pH POC ABG pCO2 POC ABG pO2 ABG pO2 ABG HCO3 ABG Base Excess ABG Hemoglobin Oxyhemoglobin Sodium Potassium Chloride Carbon Dioxide BUN Creatinine Glucose POC Glucose 50 L 51 L Lactic Acid Calcium Ionized Calcium Phosphorus Magnesium Direct Bilirubin AST ALT Alkaline Phosphatase Lactate Dehydrogenase Troponin T 0.204 H* C-Reactive Protein Total Protein Albumin Prealbumin Triglycerides Cholesterol 31 L LDL Cholesterol Direct 4 L HDL Cholesterol 3 L 25-OH Vitamin D Total PTH Intact Urine pH Urine WBC (Auto) Urine Creatinine Urine Total Protein Fluid Total Protein Vancomycin Trough Rheumatoid Factor Complement C4 Miscellaneous Test Crossmatch 09/30/16 09/30/16 09/30/16 01:30 05:15 06:10 WBC RBC Hgb Hct MCV MCH MCHC RDW Plt Count Lymph % (Auto) [place] % (Auto) Lymph # [place] # Baso # Seg Neutrophils % Seg Neuts % (Manual) Lymphocytes % (Manual) Monocytes % (Manual) Eosinophils % (Manual) Basophils % (Manual) Nucleated RBC % Seg Neutrophils # Seg Neutrophils # Man Lymphocytes # (Manual) Monocytes # (Manual) Eosinophils # (Manual) Basophils # (Manual) PT INR Fibrinogen dRVVT Confirm Interp Factor V Activity POC ABG pH POC ABG pCO2 POC ABG pO2 ABG pO2 ABG HCO3 ABG Base Excess ABG Hemoglobin Oxyhemoglobin Sodium 133 L Potassium 3.2 L Chloride 93.2 L Carbon Dioxide 19 L BUN 36 H Creatinine 3.2 H Glucose 104 H POC Glucose 167 H 146 H Lactic Acid Calcium 6.4 L Ionized Calcium Phosphorus Magnesium 1.60 L Direct Bilirubin AST ALT Alkaline Phosphatase Lactate Dehydrogenase Troponin T C-Reactive Protein Total Protein Albumin Prealbumin Triglycerides Cholesterol LDL Cholesterol Direct HDL Cholesterol 25-OH Vitamin D Total PTH Intact Urine pH Urine WBC (Auto) Urine Creatinine Urine Total Protein Fluid Total Protein Vancomycin Trough Rheumatoid Factor Complement C4 Miscellaneous Test Crossmatch 09/30/16 09/30/16 09/30/16 11:26 13:39 18:38 WBC RBC Hgb Hct MCV MCH MCHC RDW Plt Count Lymph % (Auto) [place] % (Auto) Lymph # [place] # Baso # Seg Neutrophils % Seg Neuts % (Manual) Lymphocytes % (Manual) Monocytes % (Manual) Eosinophils % (Manual) Basophils % (Manual) Nucleated RBC % Seg Neutrophils # Seg Neutrophils # Man Lymphocytes # (Manual) Monocytes # (Manual) Eosinophils # (Manual) Basophils # (Manual) PT INR Fibrinogen dRVVT Confirm Interp Factor V Activity POC ABG pH 7.479 H POC ABG pCO2 29.8 L POC ABG pO2 117 H ABG pO2 ABG HCO3 ABG Base Excess ABG Hemoglobin Oxyhemoglobin Sodium Potassium Chloride Carbon Dioxide BUN Creatinine Glucose POC Glucose 140 H 122 H Lactic Acid Calcium Ionized Calcium Phosphorus Magnesium Direct Bilirubin AST ALT Alkaline Phosphatase Lactate Dehydrogenase Troponin T C-Reactive Protein Total Protein Albumin Prealbumin Triglycerides Cholesterol LDL Cholesterol Direct HDL Cholesterol 25-OH Vitamin D Total PTH Intact Urine pH Urine WBC (Auto) Urine Creatinine Urine Total Protein Fluid Total Protein Vancomycin Trough Rheumatoid Factor Complement C4 Miscellaneous Test Crossmatch 10/01/16 10/01/16 10/01/16 06:00 06:00 12:37 WBC 12.6 H RBC 2.75 L Hgb 7.3 L Hct 23.3 L MCV MCH 27 L MCHC RDW 20.6 H Plt Count 72 L Lymph % (Auto) [place] % (Auto) Lymph # [place] # Baso # Seg Neutrophils % Seg Neuts % (Manual) 31.0 L Lymphocytes % (Manual) 8.0 L Monocytes % (Manual) Eosinophils % (Manual) Basophils % (Manual) Nucleated RBC % 3.0 H Seg Neutrophils # Seg Neutrophils # Man Lymphocytes # (Manual) 1.0 L Monocytes # (Manual) Eosinophils # (Manual) Basophils # (Manual) PT INR Fibrinogen dRVVT Confirm Interp Factor V Activity POC ABG pH POC ABG pCO2 POC ABG pO2 ABG pO2 ABG HCO3 ABG Base Excess ABG Hemoglobin Oxyhemoglobin Sodium 127 L Potassium Chloride 86.8 L Carbon Dioxide 20 L BUN 42 H Creatinine 3.5 H Glucose POC Glucose 65 L Lactic Acid Calcium 7.0 L Ionized Calcium Phosphorus Magnesium Direct Bilirubin AST ALT Alkaline Phosphatase Lactate Dehydrogenase Troponin T C-Reactive Protein Total Protein Albumin Prealbumin Triglycerides Cholesterol LDL Cholesterol Direct HDL Cholesterol 25-OH Vitamin D Total PTH Intact Urine pH Urine WBC (Auto) Urine Creatinine Urine Total Protein Fluid Total Protein Vancomycin Trough Rheumatoid Factor Complement C4 Miscellaneous Test Crossmatch 10/01/16 10/01/16 10/02/16 17:39 23:32 00:59 WBC RBC Hgb Hct MCV MCH MCHC RDW Plt Count Lymph % (Auto) [place] % (Auto) Lymph # [place] # Baso # Seg Neutrophils % Seg Neuts % (Manual) Lymphocytes % (Manual) Monocytes % (Manual) Eosinophils % (Manual) Basophils % (Manual) Nucleated RBC % Seg Neutrophils # Seg Neutrophils # Man Lymphocytes # (Manual) Monocytes # (Manual) Eosinophils # (Manual) Basophils # (Manual) PT INR Fibrinogen dRVVT Confirm Interp Factor V Activity POC ABG pH POC ABG pCO2 POC ABG pO2 ABG pO2 ABG HCO3 ABG Base Excess ABG Hemoglobin Oxyhemoglobin Sodium Potassium Chloride Carbon Dioxide BUN Creatinine Glucose POC Glucose 107 H 52 L 145 H Lactic Acid Calcium Ionized Calcium Phosphorus Magnesium Direct Bilirubin AST ALT Alkaline Phosphatase Lactate Dehydrogenase Troponin T C-Reactive Protein Total Protein Albumin Prealbumin Triglycerides Cholesterol LDL Cholesterol Direct HDL Cholesterol 25-OH Vitamin D Total PTH Intact Urine pH Urine WBC (Auto) Urine Creatinine Urine Total Protein Fluid Total Protein Vancomycin Trough Rheumatoid Factor Complement C4 Miscellaneous Test Crossmatch 10/02/16 10/02/16 10/02/16 10:30 10:50 10:50 WBC 14.7 H RBC 2.76 L Hgb 7.4 L Hct 23.6 L MCV MCH 27 L MCHC RDW 20.2 H Plt Count 79 L Lymph % (Auto) [place] % (Auto) Lymph # [place] # Baso # Seg Neutrophils % Seg Neuts % (Manual) 86.0 H Lymphocytes % (Manual) 6.0 L Monocytes % (Manual) Eosinophils % (Manual) Basophils % (Manual) Nucleated RBC % Seg Neutrophils # Seg Neutrophils # Man 12.6 H Lymphocytes # (Manual) 0.9 L Monocytes # (Manual) Eosinophils # (Manual) Basophils # (Manual) PT INR Fibrinogen dRVVT Confirm Interp Factor V Activity POC ABG pH 7.486 H POC ABG pCO2 30.1 L POC ABG pO2 108 H ABG pO2 ABG HCO3 ABG Base Excess ABG Hemoglobin Oxyhemoglobin Sodium 131 L Potassium 3.4 L Chloride 89.9 L Carbon Dioxide BUN 26 H Creatinine 2.6 H Glucose POC Glucose Lactic Acid Calcium 7.0 L Ionized Calcium Phosphorus Magnesium Direct Bilirubin AST ALT Alkaline Phosphatase Lactate Dehydrogenase Troponin T C-Reactive Protein Total Protein Albumin Prealbumin Triglycerides Cholesterol LDL Cholesterol Direct HDL Cholesterol 25-OH Vitamin D Total PTH Intact Urine pH Urine WBC (Auto) Urine Creatinine Urine Total Protein Fluid Total Protein Vancomycin Trough Rheumatoid Factor Complement C4 Miscellaneous Test Crossmatch 10/02/16 10/03/16 10/03/16 23:45 00:45 05:10 WBC 12.9 H RBC 2.77 L Hgb 7.6 L Hct 23.7 L MCV MCH 27 L MCHC RDW 19.7 H Plt Count 89 L Lymph % (Auto) [place] % (Auto) Lymph # [place] # Baso # Seg Neutrophils % Seg Neuts % (Manual) Lymphocytes % (Manual) 8.0 L Monocytes % (Manual) Eosinophils % (Manual) Basophils % (Manual) Nucleated RBC % Seg Neutrophils # 11.9 H Seg Neutrophils # Man Lymphocytes # (Manual) 1.0 L Monocytes # (Manual) Eosinophils # (Manual) Basophils # (Manual) PT INR Fibrinogen dRVVT Confirm Interp Factor V Activity POC ABG pH POC ABG pCO2 POC ABG pO2 ABG pO2 ABG HCO3 ABG Base Excess ABG Hemoglobin Oxyhemoglobin Sodium Potassium Chloride Carbon Dioxide BUN Creatinine Glucose POC Glucose 55 L 199 H Lactic Acid Calcium Ionized Calcium Phosphorus Magnesium Direct Bilirubin AST ALT Alkaline Phosphatase Lactate Dehydrogenase Troponin T C-Reactive Protein Total Protein Albumin Prealbumin Triglycerides Cholesterol LDL Cholesterol Direct HDL Cholesterol 25-OH Vitamin D Total PTH Intact Urine pH Urine WBC (Auto) Urine Creatinine Urine Total Protein Fluid Total Protein Vancomycin Trough Rheumatoid Factor Complement C4 Miscellaneous Test Crossmatch 10/03/16 10/03/16 10/03/16 05:10 12:14 13:18 WBC RBC Hgb Hct MCV MCH MCHC RDW Plt Count Lymph % (Auto) [place] % (Auto) Lymph # [place] # Baso # Seg Neutrophils % Seg Neuts % (Manual) Lymphocytes % (Manual) Monocytes % (Manual) Eosinophils % (Manual) Basophils % (Manual) Nucleated RBC % Seg Neutrophils # Seg Neutrophils # Man Lymphocytes # (Manual) Monocytes # (Manual) Eosinophils # (Manual) Basophils # (Manual) PT INR Fibrinogen dRVVT Confirm Interp Factor V Activity POC ABG pH POC ABG pCO2 POC ABG pO2 ABG pO2 ABG HCO3 ABG Base Excess ABG Hemoglobin Oxyhemoglobin Sodium 129 L Potassium 3.3 L Chloride 88.8 L Carbon Dioxide 20 L BUN 29 H Creatinine 2.8 H Glucose POC Glucose 68 L 127 H Lactic Acid Calcium 7.2 L Ionized Calcium Phosphorus Magnesium Direct Bilirubin AST ALT Alkaline Phosphatase Lactate Dehydrogenase Troponin T C-Reactive Protein Total Protein Albumin Prealbumin Triglycerides Cholesterol LDL Cholesterol Direct HDL Cholesterol 25-OH Vitamin D Total PTH Intact Urine pH Urine WBC (Auto) Urine Creatinine Urine Total Protein Fluid Total Protein Vancomycin Trough Rheumatoid Factor Complement C4 Miscellaneous Test Crossmatch 10/03/16 10/03/16 10/03/16 14:42 18:21 19:09 WBC RBC Hgb Hct MCV MCH MCHC RDW Plt Count Lymph % (Auto) [place] % (Auto) Lymph # [place] # Baso # Seg Neutrophils % Seg Neuts % (Manual) Lymphocytes % (Manual) Monocytes % (Manual) Eosinophils % (Manual) Basophils % (Manual) Nucleated RBC % Seg Neutrophils # Seg Neutrophils # Man Lymphocytes # (Manual) Monocytes # (Manual) Eosinophils # (Manual) Basophils # (Manual) PT INR Fibrinogen dRVVT Confirm Interp Factor V Activity POC ABG pH 7.499 H POC ABG pCO2 28.4 L POC ABG pO2 44 L ABG pO2 ABG HCO3 ABG Base Excess ABG Hemoglobin Oxyhemoglobin Sodium Potassium Chloride Carbon Dioxide BUN Creatinine Glucose POC Glucose 64 L 205 H Lactic Acid Calcium Ionized Calcium Phosphorus Magnesium Direct Bilirubin AST ALT Alkaline Phosphatase Lactate Dehydrogenase Troponin T C-Reactive Protein Total Protein Albumin Prealbumin Triglycerides Cholesterol LDL Cholesterol Direct HDL Cholesterol 25-OH Vitamin D Total PTH Intact Urine pH Urine WBC (Auto) Urine Creatinine Urine Total Protein Fluid Total Protein Vancomycin Trough Rheumatoid Factor Complement C4 Miscellaneous Test Crossmatch 10/03/16 10/04/16 10/04/16 23:33 04:18 06:30 WBC RBC 2.54 L Hgb 7.1 L Hct 21.7 L MCV MCH MCHC RDW 19.5 H Plt Count 76 L Lymph % (Auto) [place] % (Auto) Lymph # [place] # Baso # Seg Neutrophils % Seg Neuts % (Manual) 88.0 H Lymphocytes % (Manual) 6.0 L Monocytes % (Manual) Eosinophils % (Manual) Basophils % (Manual) Nucleated RBC % Seg Neutrophils # Seg Neutrophils # Man 8.8 H Lymphocytes # (Manual) 0.6 L Monocytes # (Manual) Eosinophils # (Manual) Basophils # (Manual) PT INR Fibrinogen dRVVT Confirm Interp Factor V Activity POC ABG pH 7.461 H POC ABG pCO2 33.6 L POC ABG pO2 211 H ABG pO2 ABG HCO3 ABG Base Excess ABG Hemoglobin Oxyhemoglobin Sodium Potassium Chloride Carbon Dioxide BUN Creatinine Glucose POC Glucose 136 H Lactic Acid Calcium Ionized Calcium Phosphorus Magnesium Direct Bilirubin AST ALT Alkaline Phosphatase Lactate Dehydrogenase Troponin T C-Reactive Protein Total Protein Albumin Prealbumin Triglycerides Cholesterol LDL Cholesterol Direct HDL Cholesterol 25-OH Vitamin D Total PTH Intact Urine pH Urine WBC (Auto) Urine Creatinine Urine Total Protein Fluid Total Protein Vancomycin Trough Rheumatoid Factor Complement C4 Miscellaneous Test Crossmatch 10/04/16 10/04/16 10/04/16 06:30 11:45 17:54 WBC RBC Hgb Hct MCV MCH MCHC RDW Plt Count Lymph % (Auto) [place] % (Auto) Lymph # [place] # Baso # Seg Neutrophils % Seg Neuts % (Manual) Lymphocytes % (Manual) Monocytes % (Manual) Eosinophils % (Manual) Basophils % (Manual) Nucleated RBC % Seg Neutrophils # Seg Neutrophils # Man Lymphocytes # (Manual) Monocytes # (Manual) Eosinophils # (Manual) Basophils # (Manual) PT INR Fibrinogen dRVVT Confirm Interp Factor V Activity POC ABG pH POC ABG pCO2 POC ABG pO2 ABG pO2 ABG HCO3 ABG Base Excess ABG Hemoglobin Oxyhemoglobin Sodium 128 L Potassium Chloride 87.4 L Carbon Dioxide 20 L BUN 34 H Creatinine 2.9 H Glucose 127 H POC Glucose 158 H 160 H Lactic Acid Calcium 7.4 L Ionized Calcium Phosphorus Magnesium Direct Bilirubin AST ALT Alkaline Phosphatase Lactate Dehydrogenase Troponin T C-Reactive Protein Total Protein Albumin Prealbumin Triglycerides Cholesterol LDL Cholesterol Direct HDL Cholesterol 25-OH Vitamin D Total PTH Intact Urine pH Urine WBC (Auto) Urine Creatinine Urine Total Protein Fluid Total Protein Vancomycin Trough Rheumatoid Factor Complement C4 Miscellaneous Test Crossmatch 10/04/16 10/05/16 10/05/16 23:25 04:30 05:00 WBC RBC 2.64 L Hgb 7.5 L Hct 22.6 L MCV MCH MCHC RDW 19.3 H Plt Count 80 L Lymph % (Auto) [place] % (Auto) Lymph # [place] # Baso # Seg Neutrophils % Seg Neuts % (Manual) Lymphocytes % (Manual) 12.0 L Monocytes % (Manual) Eosinophils % (Manual) Basophils % (Manual) Nucleated RBC % Seg Neutrophils # Seg Neutrophils # Man Lymphocytes # (Manual) Monocytes # (Manual) Eosinophils # (Manual) Basophils # (Manual) PT INR Fibrinogen dRVVT Confirm Interp Factor V Activity POC ABG pH 7.475 H POC ABG pCO2 33.3 L POC ABG pO2 140 H ABG pO2 ABG HCO3 ABG Base Excess ABG Hemoglobin Oxyhemoglobin Sodium Potassium Chloride Carbon Dioxide BUN Creatinine Glucose POC Glucose 141 H Lactic Acid Calcium Ionized Calcium Phosphorus Magnesium Direct Bilirubin AST ALT Alkaline Phosphatase Lactate Dehydrogenase Troponin T C-Reactive Protein Total Protein Albumin Prealbumin Triglycerides Cholesterol LDL Cholesterol Direct HDL Cholesterol 25-OH Vitamin D Total PTH Intact Urine pH Urine WBC (Auto) Urine Creatinine Urine Total Protein Fluid Total Protein Vancomycin Trough Rheumatoid Factor Complement C4 Miscellaneous Test Crossmatch 10/05/16 10/05/16 10/05/16 05:00 05:09 12:58 WBC RBC Hgb Hct MCV MCH MCHC RDW Plt Count Lymph % (Auto) [place] % (Auto) Lymph # [place] # Baso # Seg Neutrophils % Seg Neuts % (Manual) Lymphocytes % (Manual) Monocytes % (Manual) Eosinophils % (Manual) Basophils % (Manual) Nucleated RBC % Seg Neutrophils # Seg Neutrophils # Man Lymphocytes # (Manual) Monocytes # (Manual) Eosinophils # (Manual) Basophils # (Manual) PT INR Fibrinogen dRVVT Confirm Interp Factor V Activity POC ABG pH POC ABG pCO2 POC ABG pO2 ABG pO2 ABG HCO3 ABG Base Excess ABG Hemoglobin Oxyhemoglobin Sodium 131 L Potassium Chloride 94.0 L Carbon Dioxide 20 L BUN 22 H Creatinine 2.0 H Glucose 123 H POC Glucose 166 H 179 H Lactic Acid Calcium 7.7 L Ionized Calcium Phosphorus 2.20 L D Magnesium Direct Bilirubin AST ALT Alkaline Phosphatase Lactate Dehydrogenase Troponin T C-Reactive Protein Total Protein Albumin Prealbumin Triglycerides Cholesterol LDL Cholesterol Direct HDL Cholesterol 25-OH Vitamin D Total PTH Intact Urine pH Urine WBC (Auto) Urine Creatinine Urine Total Protein Fluid Total Protein Vancomycin Trough Rheumatoid Factor Complement C4 Miscellaneous Test Crossmatch 10/05/16 10/05/16 10/05/16 15:50 18:53 23:12 WBC RBC Hgb Hct MCV MCH MCHC RDW Plt Count Lymph % (Auto) [place] % (Auto) Lymph # [place] # Baso # Seg Neutrophils % Seg Neuts % (Manual) Lymphocytes % (Manual) Monocytes % (Manual) Eosinophils % (Manual) Basophils % (Manual) Nucleated RBC % Seg Neutrophils # Seg Neutrophils # Man Lymphocytes # (Manual) Monocytes # (Manual) Eosinophils # (Manual) Basophils # (Manual) PT INR Fibrinogen dRVVT Confirm Interp Factor V Activity POC ABG pH POC ABG pCO2 POC ABG pO2 ABG pO2 ABG HCO3 ABG Base Excess ABG Hemoglobin Oxyhemoglobin Sodium Potassium Chloride Carbon Dioxide BUN Creatinine Glucose POC Glucose 150 H 164 H Lactic Acid Calcium Ionized Calcium Phosphorus Magnesium Direct Bilirubin AST ALT Alkaline Phosphatase Lactate Dehydrogenase Troponin T C-Reactive Protein Total Protein Albumin Prealbumin Triglycerides Cholesterol LDL Cholesterol Direct HDL Cholesterol 25-OH Vitamin D Total PTH Intact Urine pH Urine WBC (Auto) Urine Creatinine Urine Total Protein Fluid Total Protein Vancomycin Trough Rheumatoid Factor Complement C4 Miscellaneous Test Crossmatch See Detail 10/06/16 10/06/16 10/06/16 03:50 03:50 04:53 WBC RBC 3.00 L Hgb 8.6 L Hct 25.8 L MCV MCH MCHC RDW 17.9 H Plt Count 65 L Lymph % (Auto) [place] % (Auto) Lymph # [place] # Baso # Seg Neutrophils % Seg Neuts % (Manual) 30.0 L Lymphocytes % (Manual) 5.0 L Monocytes % (Manual) Eosinophils % (Manual) Basophils % (Manual) Nucleated RBC % Seg Neutrophils # Seg Neutrophils # Man Lymphocytes # (Manual) 0.4 L Monocytes # (Manual) Eosinophils # (Manual) Basophils # (Manual) PT INR Fibrinogen dRVVT Confirm Interp Factor V Activity POC ABG pH 7.310 L POC ABG pCO2 49.0 H POC ABG pO2 ABG pO2 ABG HCO3 ABG Base Excess ABG Hemoglobin Oxyhemoglobin Sodium 133 L Potassium Chloride 95.9 L Carbon Dioxide BUN 26 H Creatinine 2.0 H Glucose 116 H POC Glucose Lactic Acid Calcium 7.8 L Ionized Calcium Phosphorus Magnesium Direct Bilirubin AST ALT Alkaline Phosphatase Lactate Dehydrogenase Troponin T C-Reactive Protein Total Protein Albumin Prealbumin Triglycerides Cholesterol LDL Cholesterol Direct HDL Cholesterol 25-OH Vitamin D Total PTH Intact Urine pH Urine WBC (Auto) Urine Creatinine Urine Total Protein Fluid Total Protein Vancomycin Trough Rheumatoid Factor Complement C4 Miscellaneous Test Crossmatch 10/06/16 10/06/16 10/06/16 05:23 11:52 18:34 WBC RBC Hgb Hct MCV MCH MCHC RDW Plt Count Lymph % (Auto) [place] % (Auto) Lymph # [place] # Baso # Seg Neutrophils % Seg Neuts % (Manual) Lymphocytes % (Manual) Monocytes % (Manual) Eosinophils % (Manual) Basophils % (Manual) Nucleated RBC % Seg Neutrophils # Seg Neutrophils # Man Lymphocytes # (Manual) Monocytes # (Manual) Eosinophils # (Manual) Basophils # (Manual) PT INR Fibrinogen dRVVT Confirm Interp Factor V Activity POC ABG pH POC ABG pCO2 POC ABG pO2 ABG pO2 ABG HCO3 ABG Base Excess ABG Hemoglobin Oxyhemoglobin Sodium Potassium Chloride Carbon Dioxide BUN Creatinine Glucose POC Glucose 126 H 116 H 129 H Lactic Acid Calcium Ionized Calcium Phosphorus Magnesium Direct Bilirubin AST ALT Alkaline Phosphatase Lactate Dehydrogenase Troponin T C-Reactive Protein Total Protein Albumin Prealbumin Triglycerides Cholesterol LDL Cholesterol Direct HDL Cholesterol 25-OH Vitamin D Total PTH Intact Urine pH Urine WBC (Auto) Urine Creatinine Urine Total Protein Fluid Total Protein Vancomycin Trough Rheumatoid Factor Complement C4 Miscellaneous Test Crossmatch 10/07/16 10/07/16 10/07/16 03:45 05:00 10:00 WBC 17.0 H RBC 2.68 L Hgb 7.3 L Hct 25.3 L MCV MCH 27 L MCHC 29 L RDW 19.6 H Plt Count 74 L Lymph % (Auto) [place] % (Auto) Lymph # [place] # Baso # Seg Neutrophils % Seg Neuts % (Manual) Lymphocytes % (Manual) 12.0 L Monocytes % (Manual) Eosinophils % (Manual) Basophils % (Manual) Nucleated RBC % 4.0 H Seg Neutrophils # Seg Neutrophils # Man 10.7 H Lymphocytes # (Manual) Monocytes # (Manual) Eosinophils # (Manual) Basophils # (Manual) PT INR Fibrinogen dRVVT Confirm Interp Factor V Activity POC ABG pH POC ABG pCO2 POC ABG pO2 ABG pO2 ABG HCO3 ABG Base Excess ABG Hemoglobin Oxyhemoglobin Sodium 130 L Potassium 3.2 L Chloride 93.9 L Carbon Dioxide 20 L BUN 44 H Creatinine 2.7 H Glucose 129 H POC Glucose Lactic Acid Calcium 7.4 L Ionized Calcium Phosphorus Magnesium Direct Bilirubin AST ALT 6 L Alkaline Phosphatase 195 H Lactate Dehydrogenase Troponin T C-Reactive Protein Total Protein 4.9 L Albumin 1.0 L Prealbumin Triglycerides Cholesterol LDL Cholesterol Direct HDL Cholesterol 25-OH Vitamin D Total PTH Intact Urine pH Urine WBC (Auto) Urine Creatinine Urine Total Protein Fluid Total Protein Vancomycin Trough Rheumatoid Factor Complement C4 Miscellaneous Test Flexitest 1 H Crossmatch 10/07/16 10/07/16 10/07/16 10:00 11:24 18:10 WBC RBC Hgb Hct MCV MCH MCHC RDW Plt Count Lymph % (Auto) [place] % (Auto) Lymph # [place] # Baso # Seg Neutrophils % Seg Neuts % (Manual) Lymphocytes % (Manual) Monocytes % (Manual) Eosinophils % (Manual) Basophils % (Manual) Nucleated RBC % Seg Neutrophils # Seg Neutrophils # Man Lymphocytes # (Manual) Monocytes # (Manual) Eosinophils # (Manual) Basophils # (Manual) PT INR Fibrinogen dRVVT Confirm Interp Factor V Activity POC ABG pH POC ABG pCO2 POC ABG pO2 ABG pO2 ABG HCO3 ABG Base Excess ABG Hemoglobin Oxyhemoglobin Sodium Potassium Chloride Carbon Dioxide BUN Creatinine Glucose POC Glucose 116 H 130 H Lactic Acid Calcium Ionized Calcium Phosphorus Magnesium Direct Bilirubin AST ALT Alkaline Phosphatase Lactate Dehydrogenase Troponin T C-Reactive Protein 19.40 H Total Protein Albumin Prealbumin Triglycerides Cholesterol LDL Cholesterol Direct HDL Cholesterol 25-OH Vitamin D Total PTH Intact Urine pH Urine WBC (Auto) Urine Creatinine Urine Total Protein Fluid Total Protein Vancomycin Trough Rheumatoid Factor Complement C4 Miscellaneous Test Crossmatch 10/07/16 10/08/16 10/08/16 18:30 00:00 04:00 WBC RBC Hgb Hct MCV MCH MCHC RDW Plt Count Lymph % (Auto) [place] % (Auto) Lymph # [place] # Baso # Seg Neutrophils % Seg Neuts % (Manual) Lymphocytes % (Manual) Monocytes % (Manual) Eosinophils % (Manual) Basophils % (Manual) Nucleated RBC % Seg Neutrophils # Seg Neutrophils # Man Lymphocytes # (Manual) Monocytes # (Manual) Eosinophils # (Manual) Basophils # (Manual) PT INR Fibrinogen dRVVT Confirm Interp Factor V Activity POC ABG pH POC ABG pCO2 POC ABG pO2 ABG pO2 ABG HCO3 ABG Base Excess ABG Hemoglobin Oxyhemoglobin Sodium 132 L Potassium 3.3 L Chloride 93.6 L Carbon Dioxide 17 L BUN 59 H Creatinine 2.7 H Glucose 121 H POC Glucose 122 H Lactic Acid Calcium 7.6 L Ionized Calcium Phosphorus Magnesium Direct Bilirubin AST ALT Alkaline Phosphatase Lactate Dehydrogenase Troponin T C-Reactive Protein Total Protein Albumin Prealbumin Triglycerides Cholesterol LDL Cholesterol Direct HDL Cholesterol 25-OH Vitamin D Total PTH Intact Urine pH Urine WBC (Auto) > 182.0 H Urine Creatinine Urine Total Protein Fluid Total Protein Vancomycin Trough Rheumatoid Factor Complement C4 Miscellaneous Test Crossmatch 10/08/16 10/08/16 10/08/16 04:30 05:30 11:51 WBC RBC 5.15 H Hgb 14.4 H D Hct 44.5 H D MCV MCH MCHC RDW 19.5 H Plt Count 56 L Lymph % (Auto) [place] % (Auto) Lymph # [place] # Baso # Seg Neutrophils % Seg Neuts % (Manual) 24.0 L Lymphocytes % (Manual) 8.0 L Monocytes % (Manual) Eosinophils % (Manual) Basophils % (Manual) Nucleated RBC % 9.0 H Seg Neutrophils # Seg Neutrophils # Man Lymphocytes # (Manual) 0.7 L Monocytes # (Manual) Eosinophils # (Manual) Basophils # (Manual) PT INR Fibrinogen dRVVT Confirm Interp Factor V Activity POC ABG pH POC ABG pCO2 POC ABG pO2 ABG pO2 ABG HCO3 ABG Base Excess ABG Hemoglobin Oxyhemoglobin Sodium Potassium Chloride Carbon Dioxide BUN Creatinine Glucose POC Glucose 125 H 150 H Lactic Acid Calcium Ionized Calcium Phosphorus Magnesium Direct Bilirubin AST ALT Alkaline Phosphatase Lactate Dehydrogenase Troponin T C-Reactive Protein Total Protein Albumin Prealbumin Triglycerides Cholesterol LDL Cholesterol Direct HDL Cholesterol 25-OH Vitamin D Total PTH Intact Urine pH Urine WBC (Auto) Urine Creatinine Urine Total Protein Fluid Total Protein Vancomycin Trough Rheumatoid Factor Complement C4 Miscellaneous Test Crossmatch 10/08/16 10/08/16 10/08/16 12:49 17:07 19:30 WBC RBC Hgb 7.1 L D Hct 22.4 L D MCV MCH MCHC RDW Plt Count Lymph % (Auto) [place] % (Auto) Lymph # [place] # Baso # Seg Neutrophils % Seg Neuts % (Manual) Lymphocytes % (Manual) Monocytes % (Manual) Eosinophils % (Manual) Basophils % (Manual) Nucleated RBC % Seg Neutrophils # Seg Neutrophils # Man Lymphocytes # (Manual) Monocytes # (Manual) Eosinophils # (Manual) Basophils # (Manual) PT INR Fibrinogen dRVVT Confirm Interp Factor V Activity POC ABG pH POC ABG pCO2 28.2 L POC ABG pO2 111 H ABG pO2 ABG HCO3 ABG Base Excess ABG Hemoglobin Oxyhemoglobin Sodium Potassium Chloride Carbon Dioxide BUN Creatinine Glucose POC Glucose 145 H Lactic Acid Calcium Ionized Calcium Phosphorus Magnesium Direct Bilirubin AST ALT Alkaline Phosphatase Lactate Dehydrogenase Troponin T C-Reactive Protein Total Protein Albumin Prealbumin Triglycerides Cholesterol LDL Cholesterol Direct HDL Cholesterol 25-OH Vitamin D Total PTH Intact Urine pH Urine WBC (Auto) Urine Creatinine Urine Total Protein Fluid Total Protein Vancomycin Trough Rheumatoid Factor Complement C4 Miscellaneous Test Crossmatch 10/08/16 10/09/16 10/09/16 19:30 03:45 03:45 WBC 12.6 H RBC 2.36 L Hgb 6.7 L Hct 21.1 L MCV MCH MCHC RDW 19.5 H Plt Count 75 L Lymph % (Auto) [place] % (Auto) Lymph # [place] # Baso # Seg Neutrophils % Seg Neuts % (Manual) Lymphocytes % (Manual) Monocytes % (Manual) 10.0 H Eosinophils % (Manual) Basophils % (Manual) Nucleated RBC % 3.0 H Seg Neutrophils # Seg Neutrophils # Man Lymphocytes # (Manual) Monocytes # (Manual) 1.3 H Eosinophils # (Manual) Basophils # (Manual) PT 18.0 H INR 1.41 H Fibrinogen dRVVT Confirm Interp Factor V Activity POC ABG pH POC ABG pCO2 POC ABG pO2 ABG pO2 ABG HCO3 ABG Base Excess ABG Hemoglobin Oxyhemoglobin Sodium 135 L Potassium Chloride Carbon Dioxide 17 L BUN 81 H Creatinine 3.2 H Glucose 109 H POC Glucose Lactic Acid Calcium 7.4 L Ionized Calcium Phosphorus 4.60 H D Magnesium Direct Bilirubin AST ALT Alkaline Phosphatase Lactate Dehydrogenase Troponin T C-Reactive Protein Total Protein Albumin Prealbumin Triglycerides Cholesterol LDL Cholesterol Direct HDL Cholesterol 25-OH Vitamin D Total PTH Intact Urine pH Urine WBC (Auto) Urine Creatinine Urine Total Protein Fluid Total Protein Vancomycin Trough Rheumatoid Factor Complement C4 Miscellaneous Test Crossmatch 10/09/16 10/09/16 10/09/16 03:45 05:14 07:20 WBC RBC Hgb Hct MCV MCH MCHC RDW Plt Count Lymph % (Auto) [place] % (Auto) Lymph # [place] # Baso # Seg Neutrophils % Seg Neuts % (Manual) Lymphocytes % (Manual) Monocytes % (Manual) Eosinophils % (Manual) Basophils % (Manual) Nucleated RBC % Seg Neutrophils # Seg Neutrophils # Man Lymphocytes # (Manual) Monocytes # (Manual) Eosinophils # (Manual) Basophils # (Manual) PT 19.0 H INR 1.51 H Fibrinogen dRVVT Confirm Interp Factor V Activity POC ABG pH POC ABG pCO2 POC ABG pO2 ABG pO2 ABG HCO3 ABG Base Excess ABG Hemoglobin Oxyhemoglobin Sodium Potassium Chloride Carbon Dioxide BUN Creatinine Glucose POC Glucose 151 H Lactic Acid Calcium Ionized Calcium Phosphorus Magnesium Direct Bilirubin AST ALT Alkaline Phosphatase Lactate Dehydrogenase Troponin T C-Reactive Protein Total Protein Albumin Prealbumin Triglycerides Cholesterol LDL Cholesterol Direct HDL Cholesterol 25-OH Vitamin D Total PTH Intact Urine pH Urine WBC (Auto) Urine Creatinine Urine Total Protein Fluid Total Protein Vancomycin Trough Rheumatoid Factor Complement C4 Miscellaneous Test Crossmatch See Detail 10/09/16 10/09/16 10/09/16 11:46 16:20 16:43 WBC RBC Hgb 7.2 L Hct 22.2 L MCV MCH MCHC RDW Plt Count Lymph % (Auto) [place] % (Auto) Lymph # [place] # Baso # Seg Neutrophils % Seg Neuts % (Manual) Lymphocytes % (Manual) Monocytes % (Manual) Eosinophils % (Manual) Basophils % (Manual) Nucleated RBC % Seg Neutrophils # Seg Neutrophils # Man Lymphocytes # (Manual) Monocytes # (Manual) Eosinophils # (Manual) Basophils # (Manual) PT INR Fibrinogen dRVVT Confirm Interp Factor V Activity POC ABG pH POC ABG pCO2 POC ABG pO2 ABG pO2 ABG HCO3 ABG Base Excess ABG Hemoglobin Oxyhemoglobin Sodium Potassium Chloride Carbon Dioxide BUN Creatinine Glucose POC Glucose 133 H 141 H Lactic Acid Calcium Ionized Calcium Phosphorus Magnesium Direct Bilirubin AST ALT Alkaline Phosphatase Lactate Dehydrogenase Troponin T C-Reactive Protein Total Protein Albumin Prealbumin Triglycerides Cholesterol LDL Cholesterol Direct HDL Cholesterol 25-OH Vitamin D Total PTH Intact Urine pH Urine WBC (Auto) Urine Creatinine Urine Total Protein Fluid Total Protein Vancomycin Trough Rheumatoid Factor Complement C4 Miscellaneous Test Crossmatch 10/10/16 10/10/16 10/10/16 05:00 05:00 11:19 WBC 18.5 H RBC 2.19 L Hgb 6.4 L Hct 19.6 L* MCV MCH MCHC RDW 19.3 H Plt Count 93 L Lymph % (Auto) [place] % (Auto) Lymph # [place] # Baso # Seg Neutrophils % Seg Neuts % (Manual) Lymphocytes % (Manual) 10.0 L Monocytes % (Manual) Eosinophils % (Manual) Basophils % (Manual) Nucleated RBC % 4.0 H Seg Neutrophils # Seg Neutrophils # Man 11.3 H Lymphocytes # (Manual) Monocytes # (Manual) Eosinophils # (Manual) Basophils # (Manual) PT INR Fibrinogen dRVVT Confirm Interp Factor V Activity POC ABG pH POC ABG pCO2 POC ABG pO2 ABG pO2 ABG HCO3 ABG Base Excess ABG Hemoglobin Oxyhemoglobin Sodium Potassium 5.7 H D Chloride Carbon Dioxide 16 L BUN 94 H Creatinine 3.1 H Glucose 131 H POC Glucose 153 H Lactic Acid Calcium 8.2 L Ionized Calcium Phosphorus 5.10 H Magnesium 2.40 H Direct Bilirubin 0.3 H AST ALT < 5 L Alkaline Phosphatase 319 H Lactate Dehydrogenase Troponin T C-Reactive Protein Total Protein 5.1 L Albumin 1.0 L Prealbumin Triglycerides Cholesterol LDL Cholesterol Direct HDL Cholesterol 25-OH Vitamin D Total PTH Intact Urine pH Urine WBC (Auto) Urine Creatinine Urine Total Protein Fluid Total Protein Vancomycin Trough Rheumatoid Factor Complement C4 Miscellaneous Test Crossmatch 10/10/16 10/10/16 10/11/16 17:50 23:30 04:15 WBC RBC Hgb Hct MCV MCH MCHC RDW Plt Count Lymph % (Auto) [place] % (Auto) Lymph # [place] # Baso # Seg Neutrophils % Seg Neuts % (Manual) Lymphocytes % (Manual) Monocytes % (Manual) Eosinophils % (Manual) Basophils % (Manual) Nucleated RBC % Seg Neutrophils # Seg Neutrophils # Man Lymphocytes # (Manual) Monocytes # (Manual) Eosinophils # (Manual) Basophils # (Manual) PT INR Fibrinogen dRVVT Confirm Interp Factor V Activity POC ABG pH POC ABG pCO2 POC ABG pO2 ABG pO2 ABG HCO3 ABG Base Excess ABG Hemoglobin Oxyhemoglobin Sodium Potassium Chloride 96.4 L Carbon Dioxide 21 L BUN 57 H Creatinine 2.1 H Glucose 151 H POC Glucose 146 H 141 H Lactic Acid Calcium 8.3 L Ionized Calcium Phosphorus Magnesium Direct Bilirubin AST ALT Alkaline Phosphatase Lactate Dehydrogenase Troponin T C-Reactive Protein Total Protein Albumin Prealbumin Triglycerides Cholesterol LDL Cholesterol Direct HDL Cholesterol 25-OH Vitamin D Total PTH Intact Urine pH Urine WBC (Auto) Urine Creatinine Urine Total Protein Fluid Total Protein Vancomycin Trough Rheumatoid Factor Complement C4 Miscellaneous Test Crossmatch 10/11/16 10/11/16 10/11/16 04:15 04:15 05:30 WBC 28.3 H RBC 3.12 L Hgb 9.3 L Hct 28.7 L D MCV MCH MCHC RDW 17.7 H Plt Count 128 L Lymph % (Auto) [place] % (Auto) Lymph # [place] # Baso # Seg Neutrophils % Seg Neuts % (Manual) Lymphocytes % (Manual) Monocytes % (Manual) Eosinophils % (Manual) Basophils % (Manual) Nucleated RBC % Seg Neutrophils # Seg Neutrophils # Man Lymphocytes # (Manual) Monocytes # (Manual) Eosinophils # (Manual) Basophils # (Manual) PT INR Fibrinogen dRVVT Confirm Interp Factor V Activity POC ABG pH POC ABG pCO2 POC ABG pO2 ABG pO2 ABG HCO3 ABG Base Excess ABG Hemoglobin Oxyhemoglobin Sodium Potassium Chloride Carbon Dioxide BUN Creatinine Glucose POC Glucose 167 H Lactic Acid Calcium Ionized Calcium Phosphorus Magnesium Direct Bilirubin AST ALT Alkaline Phosphatase Lactate Dehydrogenase Troponin T C-Reactive Protein 15.80 H Total Protein Albumin Prealbumin Triglycerides Cholesterol LDL Cholesterol Direct HDL Cholesterol 25-OH Vitamin D Total PTH Intact Urine pH Urine WBC (Auto) Urine Creatinine Urine Total Protein Fluid Total Protein Vancomycin Trough Rheumatoid Factor Complement C4 Miscellaneous Test Crossmatch 10/11/16 10/11/16 10/11/16 11:40 15:49 23:57 WBC RBC Hgb Hct MCV MCH MCHC RDW Plt Count Lymph % (Auto) [place] % (Auto) Lymph # [place] # Baso # Seg Neutrophils % Seg Neuts % (Manual) Lymphocytes % (Manual) Monocytes % (Manual) Eosinophils % (Manual) Basophils % (Manual) Nucleated RBC % Seg Neutrophils # Seg Neutrophils # Man Lymphocytes # (Manual) Monocytes # (Manual) Eosinophils # (Manual) Basophils # (Manual) PT INR Fibrinogen dRVVT Confirm Interp Factor V Activity POC ABG pH POC ABG pCO2 POC ABG pO2 ABG pO2 ABG HCO3 ABG Base Excess ABG Hemoglobin Oxyhemoglobin Sodium Potassium Chloride Carbon Dioxide BUN Creatinine Glucose POC Glucose 139 H 168 H 161 H Lactic Acid Calcium Ionized Calcium Phosphorus Magnesium Direct Bilirubin AST ALT Alkaline Phosphatase Lactate Dehydrogenase Troponin T C-Reactive Protein Total Protein Albumin Prealbumin Triglycerides Cholesterol LDL Cholesterol Direct HDL Cholesterol 25-OH Vitamin D Total PTH Intact Urine pH Urine WBC (Auto) Urine Creatinine Urine Total Protein Fluid Total Protein Vancomycin Trough Rheumatoid Factor Complement C4 Miscellaneous Test Crossmatch 10/12/16 10/12/16 10/12/16 04:40 04:40 05:44 WBC 22.5 H RBC 2.88 L Hgb 8.8 L Hct 26.8 L MCV MCH MCHC RDW 17.8 H Plt Count Lymph % (Auto) [place] % (Auto) Lymph # [place] # Baso # Seg Neutrophils % Seg Neuts % (Manual) Lymphocytes % (Manual) Monocytes % (Manual) Eosinophils % (Manual) Basophils % (Manual) Nucleated RBC % Seg Neutrophils # Seg Neutrophils # Man Lymphocytes # (Manual) Monocytes # (Manual) Eosinophils # (Manual) Basophils # (Manual) PT INR Fibrinogen dRVVT Confirm Interp Factor V Activity POC ABG pH POC ABG pCO2 POC ABG pO2 ABG pO2 ABG HCO3 ABG Base Excess ABG Hemoglobin Oxyhemoglobin Sodium 134 L Potassium Chloride 93.0 L Carbon Dioxide BUN 74 H Creatinine 2.5 H Glucose 137 H POC Glucose 158 H Lactic Acid Calcium 8.2 L Ionized Calcium Phosphorus Magnesium Direct Bilirubin AST ALT Alkaline Phosphatase Lactate Dehydrogenase Troponin T C-Reactive Protein Total Protein Albumin Prealbumin Triglycerides Cholesterol LDL Cholesterol Direct HDL Cholesterol 25-OH Vitamin D Total PTH Intact Urine pH Urine WBC (Auto) Urine Creatinine Urine Total Protein Fluid Total Protein Vancomycin Trough Rheumatoid Factor Complement C4 Miscellaneous Test Crossmatch 10/12/16 10/12/16 10/12/16 12:27 18:18 23:46 WBC RBC Hgb Hct MCV MCH MCHC RDW Plt Count Lymph % (Auto) [place] % (Auto) Lymph # [place] # Baso # Seg Neutrophils % Seg Neuts % (Manual) Lymphocytes % (Manual) Monocytes % (Manual) Eosinophils % (Manual) Basophils % (Manual) Nucleated RBC % Seg Neutrophils # Seg Neutrophils # Man Lymphocytes # (Manual) Monocytes # (Manual) Eosinophils # (Manual) Basophils # (Manual) PT INR Fibrinogen dRVVT Confirm Interp Factor V Activity POC ABG pH POC ABG pCO2 POC ABG pO2 ABG pO2 ABG HCO3 ABG Base Excess ABG Hemoglobin Oxyhemoglobin Sodium Potassium Chloride Carbon Dioxide BUN Creatinine Glucose POC Glucose 153 H 140 H 150 H Lactic Acid Calcium Ionized Calcium Phosphorus Magnesium Direct Bilirubin AST ALT Alkaline Phosphatase Lactate Dehydrogenase Troponin T C-Reactive Protein Total Protein Albumin Prealbumin Triglycerides Cholesterol LDL Cholesterol Direct HDL Cholesterol 25-OH Vitamin D Total PTH Intact Urine pH Urine WBC (Auto) Urine Creatinine Urine Total Protein Fluid Total Protein Vancomycin Trough Rheumatoid Factor Complement C4 Miscellaneous Test Crossmatch 10/13/16 10/13/16 10/13/16 06:22 09:20 12:29 WBC RBC Hgb Hct MCV MCH MCHC RDW Plt Count Lymph % (Auto) [place] % (Auto) Lymph # [place] # Baso # Seg Neutrophils % Seg Neuts % (Manual) Lymphocytes % (Manual) Monocytes % (Manual) Eosinophils % (Manual) Basophils % (Manual) Nucleated RBC % Seg Neutrophils # Seg Neutrophils # Man Lymphocytes # (Manual) Monocytes # (Manual) Eosinophils # (Manual) Basophils # (Manual) PT INR Fibrinogen dRVVT Confirm Interp Factor V Activity POC ABG pH POC ABG pCO2 POC ABG pO2 ABG pO2 ABG HCO3 ABG Base Excess ABG Hemoglobin Oxyhemoglobin Sodium Potassium Chloride Carbon Dioxide BUN Creatinine Glucose POC Glucose 165 H 193 H Lactic Acid Calcium Ionized Calcium Phosphorus Magnesium Direct Bilirubin AST ALT Alkaline Phosphatase Lactate Dehydrogenase Troponin T C-Reactive Protein Total Protein Albumin Prealbumin Triglycerides Cholesterol LDL Cholesterol Direct HDL Cholesterol 25-OH Vitamin D Total PTH Intact Urine pH Urine WBC (Auto) Urine Creatinine Urine Total Protein Fluid Total Protein Vancomycin Trough Rheumatoid Factor Complement C4 Miscellaneous Test Flexitest 1 H Crossmatch 10/13/16 10/13/16 10/13/16 18:09 Unknown Unknown WBC 23.4 H RBC 2.83 L Hgb 8.7 L Hct 26.1 L MCV MCH MCHC RDW 18.1 H Plt Count Lymph % (Auto) [place] % (Auto) Lymph # [place] # Baso # Seg Neutrophils % Seg Neuts % (Manual) Lymphocytes % (Manual) Monocytes % (Manual) Eosinophils % (Manual) Basophils % (Manual) Nucleated RBC % Seg Neutrophils # Seg Neutrophils # Man Lymphocytes # (Manual) Monocytes # (Manual) Eosinophils # (Manual) Basophils # (Manual) PT INR Fibrinogen dRVVT Confirm Interp Factor V Activity POC ABG pH POC ABG pCO2 POC ABG pO2 ABG pO2 ABG HCO3 ABG Base Excess ABG Hemoglobin Oxyhemoglobin Sodium Potassium Chloride 95.8 L Carbon Dioxide BUN 82 H Creatinine 2.6 H Glucose 152 H POC Glucose 166 H Lactic Acid Calcium Ionized Calcium Phosphorus Magnesium Direct Bilirubin AST ALT Alkaline Phosphatase Lactate Dehydrogenase Troponin T C-Reactive Protein Total Protein Albumin Prealbumin Triglycerides Cholesterol LDL Cholesterol Direct HDL Cholesterol 25-OH Vitamin D Total PTH Intact Urine pH Urine WBC (Auto) Urine Creatinine Urine Total Protein Fluid Total Protein Vancomycin Trough Rheumatoid Factor Complement C4 Miscellaneous Test Crossmatch 10/14/16 10/14/16 10/14/16 05:38 06:35 08:10 WBC 20.7 H RBC 2.81 L Hgb 8.4 L Hct 27.2 L MCV MCH MCHC RDW 19.4 H Plt Count Lymph % (Auto) [place] % (Auto) Lymph # [place] # Baso # Seg Neutrophils % Seg Neuts % (Manual) Lymphocytes % (Manual) Monocytes % (Manual) Eosinophils % (Manual) Basophils % (Manual) Nucleated RBC % Seg Neutrophils # Seg Neutrophils # Man Lymphocytes # (Manual) Monocytes # (Manual) Eosinophils # (Manual) Basophils # (Manual) PT INR Fibrinogen dRVVT Confirm Interp Factor V Activity POC ABG pH POC ABG pCO2 POC ABG pO2 ABG pO2 ABG HCO3 ABG Base Excess ABG Hemoglobin Oxyhemoglobin Sodium Potassium Chloride Carbon Dioxide BUN 58 H Creatinine 1.9 H Glucose 169 H POC Glucose 195 H Lactic Acid Calcium Ionized Calcium Phosphorus Magnesium Direct Bilirubin AST ALT Alkaline Phosphatase Lactate Dehydrogenase Troponin T C-Reactive Protein Total Protein Albumin Prealbumin Triglycerides Cholesterol LDL Cholesterol Direct HDL Cholesterol 25-OH Vitamin D Total PTH Intact Urine pH Urine WBC (Auto) Urine Creatinine Urine Total Protein Fluid Total Protein Vancomycin Trough Rheumatoid Factor Complement C4 Miscellaneous Test Crossmatch 10/14/16 10/14/16 10/14/16 11:44 17:13 23:28 WBC RBC Hgb Hct MCV MCH MCHC RDW Plt Count Lymph % (Auto) [place] % (Auto) Lymph # [place] # Baso # Seg Neutrophils % Seg Neuts % (Manual) Lymphocytes % (Manual) Monocytes % (Manual) Eosinophils % (Manual) Basophils % (Manual) Nucleated RBC % Seg Neutrophils # Seg Neutrophils # Man Lymphocytes # (Manual) Monocytes # (Manual) Eosinophils # (Manual) Basophils # (Manual) PT INR Fibrinogen dRVVT Confirm Interp Factor V Activity POC ABG pH POC ABG pCO2 POC ABG pO2 ABG pO2 ABG HCO3 ABG Base Excess ABG Hemoglobin Oxyhemoglobin Sodium Potassium Chloride Carbon Dioxide BUN Creatinine Glucose POC Glucose 174 H 121 H 151 H Lactic Acid Calcium Ionized Calcium Phosphorus Magnesium Direct Bilirubin AST ALT Alkaline Phosphatase Lactate Dehydrogenase Troponin T C-Reactive Protein Total Protein Albumin Prealbumin Triglycerides Cholesterol LDL Cholesterol Direct HDL Cholesterol 25-OH Vitamin D Total PTH Intact Urine pH Urine WBC (Auto) Urine Creatinine Urine Total Protein Fluid Total Protein Vancomycin Trough Rheumatoid Factor Complement C4 Miscellaneous Test Crossmatch 10/15/16 10/15/16 10/15/16 05:06 12:26 17:48 WBC RBC Hgb Hct MCV MCH MCHC RDW Plt Count Lymph % (Auto) [place] % (Auto) Lymph # [place] # Baso # Seg Neutrophils % Seg Neuts % (Manual) Lymphocytes % (Manual) Monocytes % (Manual) Eosinophils % (Manual) Basophils % (Manual) Nucleated RBC % Seg Neutrophils # Seg Neutrophils # Man Lymphocytes # (Manual) Monocytes # (Manual) Eosinophils # (Manual) Basophils # (Manual) PT INR Fibrinogen dRVVT Confirm Interp Factor V Activity POC ABG pH POC ABG pCO2 POC ABG pO2 ABG pO2 ABG HCO3 ABG Base Excess ABG Hemoglobin Oxyhemoglobin Sodium Potassium Chloride Carbon Dioxide BUN Creatinine Glucose POC Glucose 151 H 149 H 153 H Lactic Acid Calcium Ionized Calcium Phosphorus Magnesium Direct Bilirubin AST ALT Alkaline Phosphatase Lactate Dehydrogenase Troponin T C-Reactive Protein Total Protein Albumin Prealbumin Triglycerides Cholesterol LDL Cholesterol Direct HDL Cholesterol 25-OH Vitamin D Total PTH Intact Urine pH Urine WBC (Auto) Urine Creatinine Urine Total Protein Fluid Total Protein Vancomycin Trough Rheumatoid Factor Complement C4 Miscellaneous Test Crossmatch 10/15/16 10/15/16 10/16/16 Unknown Unknown 00:02 WBC 23.4 H RBC 2.78 L Hgb 8.5 L Hct 25.7 L MCV MCH MCHC RDW 18.7 H Plt Count Lymph % (Auto) [place] % (Auto) Lymph # [place] # Baso # Seg Neutrophils % Seg Neuts % (Manual) Lymphocytes % (Manual) Monocytes % (Manual) Eosinophils % (Manual) Basophils % (Manual) Nucleated RBC % Seg Neutrophils # Seg Neutrophils # Man Lymphocytes # (Manual) Monocytes # (Manual) Eosinophils # (Manual) Basophils # (Manual) PT INR Fibrinogen dRVVT Confirm Interp Factor V Activity POC ABG pH POC ABG pCO2 POC ABG pO2 ABG pO2 ABG HCO3 ABG Base Excess ABG Hemoglobin Oxyhemoglobin Sodium Potassium Chloride Carbon Dioxide BUN 73 H Creatinine 2.3 H Glucose 120 H POC Glucose 137 H Lactic Acid Calcium Ionized Calcium Phosphorus Magnesium Direct Bilirubin AST ALT Alkaline Phosphatase Lactate Dehydrogenase Troponin T C-Reactive Protein Total Protein Albumin Prealbumin Triglycerides Cholesterol LDL Cholesterol Direct HDL Cholesterol 25-OH Vitamin D Total PTH Intact Urine pH Urine WBC (Auto) Urine Creatinine Urine Total Protein Fluid Total Protein Vancomycin Trough Rheumatoid Factor Complement C4 Miscellaneous Test Crossmatch 10/16/16 10/16/16 10/16/16 05:44 06:25 06:25 WBC 22.5 H RBC 2.76 L Hgb 8.3 L Hct 25.2 L MCV MCH MCHC RDW 18.3 H Plt Count Lymph % (Auto) [place] % (Auto) Lymph # [place] # Baso # Seg Neutrophils % Seg Neuts % (Manual) Lymphocytes % (Manual) Monocytes % (Manual) Eosinophils % (Manual) Basophils % (Manual) Nucleated RBC % Seg Neutrophils # Seg Neutrophils # Man Lymphocytes # (Manual) Monocytes # (Manual) Eosinophils # (Manual) Basophils # (Manual) PT INR Fibrinogen dRVVT Confirm Interp Factor V Activity POC ABG pH POC ABG pCO2 POC ABG pO2 ABG pO2 ABG HCO3 ABG Base Excess ABG Hemoglobin Oxyhemoglobin Sodium Potassium Chloride Carbon Dioxide BUN 92 H Creatinine 3.0 H Glucose 138 H POC Glucose 110 H Lactic Acid Calcium Ionized Calcium Phosphorus Magnesium Direct Bilirubin AST ALT Alkaline Phosphatase Lactate Dehydrogenase Troponin T C-Reactive Protein Total Protein Albumin Prealbumin Triglycerides Cholesterol LDL Cholesterol Direct HDL Cholesterol 25-OH Vitamin D Total PTH Intact Urine pH Urine WBC (Auto) Urine Creatinine Urine Total Protein Fluid Total Protein Vancomycin Trough Rheumatoid Factor Complement C4 Miscellaneous Test Crossmatch 10/16/16 10/16/16 10/16/16 11:27 11:48 17:36 WBC RBC Hgb Hct MCV MCH MCHC RDW Plt Count Lymph % (Auto) [place] % (Auto) Lymph # [place] # Baso # Seg Neutrophils % Seg Neuts % (Manual) Lymphocytes % (Manual) Monocytes % (Manual) Eosinophils % (Manual) Basophils % (Manual) Nucleated RBC % Seg Neutrophils # Seg Neutrophils # Man Lymphocytes # (Manual) Monocytes # (Manual) Eosinophils # (Manual) Basophils # (Manual) PT INR Fibrinogen dRVVT Confirm Interp Factor V Activity POC ABG pH 7.582 H POC ABG pCO2 27.4 L POC ABG pO2 110 H ABG pO2 ABG HCO3 ABG Base Excess ABG Hemoglobin Oxyhemoglobin Sodium Potassium Chloride Carbon Dioxide BUN Creatinine Glucose POC Glucose 121 H 133 H Lactic Acid Calcium Ionized Calcium Phosphorus Magnesium Direct Bilirubin AST ALT Alkaline Phosphatase Lactate Dehydrogenase Troponin T C-Reactive Protein Total Protein Albumin Prealbumin Triglycerides Cholesterol LDL Cholesterol Direct HDL Cholesterol 25-OH Vitamin D Total PTH Intact Urine pH Urine WBC (Auto) Urine Creatinine Urine Total Protein Fluid Total Protein Vancomycin Trough Rheumatoid Factor Complement C4 Miscellaneous Test Crossmatch 10/16/16 10/17/16 10/17/16 20:48 04:24 04:24 WBC 21.4 H RBC 2.72 L Hgb 8.0 L Hct 25.2 L MCV MCH MCHC RDW 18.0 H Plt Count Lymph % (Auto) [place] % (Auto) Lymph # [place] # Baso # Seg Neutrophils % Seg Neuts % (Manual) Lymphocytes % (Manual) Monocytes % (Manual) Eosinophils % (Manual) Basophils % (Manual) Nucleated RBC % Seg Neutrophils # Seg Neutrophils # Man Lymphocytes # (Manual) Monocytes # (Manual) Eosinophils # (Manual) Basophils # (Manual) PT INR Fibrinogen dRVVT Confirm Interp Factor V Activity POC ABG pH 7.561 H POC ABG pCO2 24.4 L POC ABG pO2 77 L ABG pO2 ABG HCO3 ABG Base Excess ABG Hemoglobin Oxyhemoglobin Sodium 148 H Potassium Chloride Carbon Dioxide BUN 104 H Creatinine 3.0 H Glucose 149 H POC Glucose Lactic Acid Calcium Ionized Calcium Phosphorus Magnesium Direct Bilirubin AST ALT Alkaline Phosphatase 138 H Lactate Dehydrogenase Troponin T C-Reactive Protein Total Protein 6.2 L Albumin 1.5 L Prealbumin Triglycerides Cholesterol LDL Cholesterol Direct HDL Cholesterol 25-OH Vitamin D Total PTH Intact Urine pH Urine WBC (Auto) Urine Creatinine Urine Total Protein Fluid Total Protein Vancomycin Trough Rheumatoid Factor Complement C4 Miscellaneous Test Crossmatch 10/17/16 10/17/16 10/17/16 06:02 12:17 17:14 WBC RBC Hgb Hct MCV MCH MCHC RDW Plt Count Lymph % (Auto) [place] % (Auto) Lymph # [place] # Baso # Seg Neutrophils % Seg Neuts % (Manual) Lymphocytes % (Manual) Monocytes % (Manual) Eosinophils % (Manual) Basophils % (Manual) Nucleated RBC % Seg Neutrophils # Seg Neutrophils # Man Lymphocytes # (Manual) Monocytes # (Manual) Eosinophils # (Manual) Basophils # (Manual) PT INR Fibrinogen dRVVT Confirm Interp Factor V Activity POC ABG pH POC ABG pCO2 POC ABG pO2 ABG pO2 ABG HCO3 ABG Base Excess ABG Hemoglobin Oxyhemoglobin Sodium Potassium Chloride Carbon Dioxide BUN Creatinine Glucose POC Glucose 170 H 167 H 126 H Lactic Acid Calcium Ionized Calcium Phosphorus Magnesium Direct Bilirubin AST ALT Alkaline Phosphatase Lactate Dehydrogenase Troponin T C-Reactive Protein Total Protein Albumin Prealbumin Triglycerides Cholesterol LDL Cholesterol Direct HDL Cholesterol 25-OH Vitamin D Total PTH Intact Urine pH Urine WBC (Auto) Urine Creatinine Urine Total Protein Fluid Total Protein Vancomycin Trough Rheumatoid Factor Complement C4 Miscellaneous Test Crossmatch 10/17/16 10/18/16 10/18/16 23:17 04:00 04:00 WBC 20.7 H RBC 2.47 L Hgb 7.4 L Hct 22.9 L MCV MCH MCHC RDW 17.5 H Plt Count Lymph % (Auto) [place] % (Auto) Lymph # [place] # Baso # Seg Neutrophils % Seg Neuts % (Manual) Lymphocytes % (Manual) Monocytes % (Manual) Eosinophils % (Manual) Basophils % (Manual) Nucleated RBC % Seg Neutrophils # Seg Neutrophils # Man Lymphocytes # (Manual) Monocytes # (Manual) Eosinophils # (Manual) Basophils # (Manual) PT INR Fibrinogen dRVVT Confirm Interp Factor V Activity POC ABG pH POC ABG pCO2 POC ABG pO2 ABG pO2 ABG HCO3 ABG Base Excess ABG Hemoglobin Oxyhemoglobin Sodium 149 H Potassium Chloride 107.9 H Carbon Dioxide 20 L BUN 117 H Creatinine 3.2 H Glucose 119 H POC Glucose 121 H Lactic Acid Calcium Ionized Calcium Phosphorus Magnesium Direct Bilirubin AST ALT Alkaline Phosphatase Lactate Dehydrogenase Troponin T C-Reactive Protein Total Protein Albumin Prealbumin Triglycerides Cholesterol LDL Cholesterol Direct HDL Cholesterol 25-OH Vitamin D Total PTH Intact Urine pH Urine WBC (Auto) Urine Creatinine Urine Total Protein Fluid Total Protein Vancomycin Trough Rheumatoid Factor Complement C4 Miscellaneous Test Crossmatch 10/18/16 10/18/16 10/18/16 05:23 10:46 17:30 WBC RBC Hgb Hct MCV MCH MCHC RDW Plt Count Lymph % (Auto) [place] % (Auto) Lymph # [place] # Baso # Seg Neutrophils % Seg Neuts % (Manual) Lymphocytes % (Manual) Monocytes % (Manual) Eosinophils % (Manual) Basophils % (Manual) Nucleated RBC % Seg Neutrophils # Seg Neutrophils # Man Lymphocytes # (Manual) Monocytes # (Manual) Eosinophils # (Manual) Basophils # (Manual) PT INR Fibrinogen dRVVT Confirm Interp Factor V Activity POC ABG pH POC ABG pCO2 POC ABG pO2 ABG pO2 ABG HCO3 ABG Base Excess ABG Hemoglobin Oxyhemoglobin Sodium Potassium Chloride Carbon Dioxide BUN Creatinine Glucose POC Glucose 119 H 155 H 124 H Lactic Acid Calcium Ionized Calcium Phosphorus Magnesium Direct Bilirubin AST ALT Alkaline Phosphatase Lactate Dehydrogenase Troponin T C-Reactive Protein Total Protein Albumin Prealbumin Triglycerides Cholesterol LDL Cholesterol Direct HDL Cholesterol 25-OH Vitamin D Total PTH Intact Urine pH Urine WBC (Auto) Urine Creatinine Urine Total Protein Fluid Total Protein Vancomycin Trough Rheumatoid Factor Complement C4 Miscellaneous Test Crossmatch 10/19/16 10/19/16 10/19/16 04:00 04:00 05:25 WBC 17.4 H RBC 2.54 L Hgb 7.7 L Hct 23.6 L MCV MCH MCHC RDW 17.3 H Plt Count Lymph % (Auto) [place] % (Auto) Lymph # [place] # Baso # Seg Neutrophils % Seg Neuts % (Manual) Lymphocytes % (Manual) Monocytes % (Manual) Eosinophils % (Manual) Basophils % (Manual) Nucleated RBC % Seg Neutrophils # Seg Neutrophils # Man Lymphocytes # (Manual) Monocytes # (Manual) Eosinophils # (Manual) Basophils # (Manual) PT INR Fibrinogen dRVVT Confirm Interp Factor V Activity POC ABG pH POC ABG pCO2 POC ABG pO2 ABG pO2 ABG HCO3 ABG Base Excess ABG Hemoglobin Oxyhemoglobin Sodium Potassium Chloride Carbon Dioxide BUN 72 H Creatinine 2.1 H Glucose 116 H POC Glucose 119 H Lactic Acid Calcium Ionized Calcium Phosphorus Magnesium Direct Bilirubin AST ALT Alkaline Phosphatase Lactate Dehydrogenase Troponin T C-Reactive Protein Total Protein Albumin Prealbumin Triglycerides Cholesterol LDL Cholesterol Direct HDL Cholesterol 25-OH Vitamin D Total PTH Intact Urine pH Urine WBC (Auto) Urine Creatinine Urine Total Protein Fluid Total Protein Vancomycin Trough Rheumatoid Factor Complement C4 Miscellaneous Test Crossmatch 10/19/16 10/19/16 10/20/16 11:46 23:59 06:00 WBC RBC Hgb Hct MCV MCH MCHC RDW Plt Count Lymph % (Auto) [place] % (Auto) Lymph # [place] # Baso # Seg Neutrophils % Seg Neuts % (Manual) Lymphocytes % (Manual) Monocytes % (Manual) Eosinophils % (Manual) Basophils % (Manual) Nucleated RBC % Seg Neutrophils # Seg Neutrophils # Man Lymphocytes # (Manual) Monocytes # (Manual) Eosinophils # (Manual) Basophils # (Manual) PT INR Fibrinogen dRVVT Confirm Interp Factor V Activity POC ABG pH POC ABG pCO2 POC ABG pO2 ABG pO2 ABG HCO3 ABG Base Excess ABG Hemoglobin Oxyhemoglobin Sodium Potassium Chloride Carbon Dioxide 17 L BUN 94 H Creatinine 2.7 H Glucose POC Glucose 116 H 117 H Lactic Acid Calcium Ionized Calcium Phosphorus Magnesium Direct Bilirubin AST ALT Alkaline Phosphatase Lactate Dehydrogenase Troponin T C-Reactive Protein Total Protein Albumin Prealbumin Triglycerides Cholesterol LDL Cholesterol Direct HDL Cholesterol 25-OH Vitamin D Total PTH Intact Urine pH Urine WBC (Auto) Urine Creatinine Urine Total Protein Fluid Total Protein Vancomycin Trough Rheumatoid Factor Complement C4 Miscellaneous Test Crossmatch 10/20/16 10/20/16 10/20/16 06:00 11:49 16:00 WBC 19.7 H RBC 2.51 L Hgb 7.7 L Hct 23.5 L MCV MCH MCHC RDW 17.5 H Plt Count Lymph % (Auto) [place] % (Auto) Lymph # [place] # Baso # Seg Neutrophils % Seg Neuts % (Manual) Lymphocytes % (Manual) Monocytes % (Manual) Eosinophils % (Manual) Basophils % (Manual) Nucleated RBC % Seg Neutrophils # Seg Neutrophils # Man Lymphocytes # (Manual) Monocytes # (Manual) Eosinophils # (Manual) Basophils # (Manual) PT INR Fibrinogen dRVVT Confirm Interp Factor V Activity POC ABG pH POC ABG pCO2 POC ABG pO2 ABG pO2 ABG HCO3 ABG Base Excess ABG Hemoglobin Oxyhemoglobin Sodium Potassium Chloride Carbon Dioxide BUN Creatinine Glucose POC Glucose 117 H Lactic Acid Calcium Ionized Calcium Phosphorus Magnesium Direct Bilirubin AST ALT Alkaline Phosphatase Lactate Dehydrogenase Troponin T C-Reactive Protein Total Protein Albumin Prealbumin Triglycerides Cholesterol LDL Cholesterol Direct HDL Cholesterol 25-OH Vitamin D Total PTH Intact Urine pH Urine WBC (Auto) Urine Creatinine Urine Total Protein Fluid Total Protein Vancomycin Trough Rheumatoid Factor Complement C4 Miscellaneous Test Flexitest 1 H Crossmatch 10/20/16 10/20/16 10/21/16 18:36 23:39 04:00 WBC RBC Hgb Hct MCV MCH MCHC RDW Plt Count Lymph % (Auto) [place] % (Auto) Lymph # [place] # Baso # Seg Neutrophils % Seg Neuts % (Manual) Lymphocytes % (Manual) Monocytes % (Manual) Eosinophils % (Manual) Basophils % (Manual) Nucleated RBC % Seg Neutrophils # Seg Neutrophils # Man Lymphocytes # (Manual) Monocytes # (Manual) Eosinophils # (Manual) Basophils # (Manual) PT INR Fibrinogen dRVVT Confirm Interp Factor V Activity POC ABG pH POC ABG pCO2 POC ABG pO2 ABG pO2 ABG HCO3 ABG Base Excess ABG Hemoglobin Oxyhemoglobin Sodium Potassium 5.4 H D Chloride Carbon Dioxide 15 L BUN 110 H Creatinine 3.0 H Glucose POC Glucose 127 H 114 H Lactic Acid Calcium Ionized Calcium Phosphorus Magnesium Direct Bilirubin AST ALT Alkaline Phosphatase Lactate Dehydrogenase Troponin T C-Reactive Protein Total Protein Albumin Prealbumin Triglycerides Cholesterol LDL Cholesterol Direct HDL Cholesterol 25-OH Vitamin D Total PTH Intact Urine pH Urine WBC (Auto) Urine Creatinine Urine Total Protein Fluid Total Protein Vancomycin Trough Rheumatoid Factor Complement C4 Miscellaneous Test Crossmatch 10/21/16 10/21/16 10/22/16 05:54 23:46 05:18 WBC RBC Hgb Hct MCV MCH MCHC RDW Plt Count Lymph % (Auto) [place] % (Auto) Lymph # [place] # Baso # Seg Neutrophils % Seg Neuts % (Manual) Lymphocytes % (Manual) Monocytes % (Manual) Eosinophils % (Manual) Basophils % (Manual) Nucleated RBC % Seg Neutrophils # Seg Neutrophils # Man Lymphocytes # (Manual) Monocytes # (Manual) Eosinophils # (Manual) Basophils # (Manual) PT INR Fibrinogen dRVVT Confirm Interp Factor V Activity POC ABG pH POC ABG pCO2 POC ABG pO2 ABG pO2 ABG HCO3 ABG Base Excess ABG Hemoglobin Oxyhemoglobin Sodium Potassium Chloride Carbon Dioxide BUN Creatinine Glucose POC Glucose 119 H 108 H 109 H Lactic Acid Calcium Ionized Calcium Phosphorus Magnesium Direct Bilirubin AST ALT Alkaline Phosphatase Lactate Dehydrogenase Troponin T C-Reactive Protein Total Protein Albumin Prealbumin Triglycerides Cholesterol LDL Cholesterol Direct HDL Cholesterol 25-OH Vitamin D Total PTH Intact Urine pH Urine WBC (Auto) Urine Creatinine Urine Total Protein Fluid Total Protein Vancomycin Trough Rheumatoid Factor Complement C4 Miscellaneous Test Crossmatch 10/22/16 10/22/16 10/22/16 06:40 06:40 06:40 WBC 14.0 H RBC 2.03 L Hgb 7.0 L Hct 20.5 L MCV 98 H MCH 34 H MCHC 35 H RDW 17.8 H Plt Count Lymph % (Auto) [place] % (Auto) 9.9 H Lymph # [place] # 1.4 H Baso # 0.2 H Seg Neutrophils % 72.0 H Seg Neuts % (Manual) Lymphocytes % (Manual) Monocytes % (Manual) Eosinophils % (Manual) Basophils % (Manual) Nucleated RBC % Seg Neutrophils # 10.0 H Seg Neutrophils # Man Lymphocytes # (Manual) Monocytes # (Manual) Eosinophils # (Manual) Basophils # (Manual) PT INR Fibrinogen dRVVT Confirm Interp Factor V Activity POC ABG pH POC ABG pCO2 POC ABG pO2 ABG pO2 ABG HCO3 ABG Base Excess ABG Hemoglobin Oxyhemoglobin Sodium 130 L D Potassium Chloride 92.4 L Carbon Dioxide 20 L BUN 50 H Creatinine 1.6 H Glucose 589 H* POC Glucose Lactic Acid Calcium 7.8 L D Ionized Calcium Phosphorus Magnesium 1.60 L Direct Bilirubin AST ALT Alkaline Phosphatase Lactate Dehydrogenase Troponin T C-Reactive Protein Total Protein Albumin Prealbumin Triglycerides Cholesterol LDL Cholesterol Direct HDL Cholesterol 25-OH Vitamin D Total PTH Intact Urine pH Urine WBC (Auto) Urine Creatinine Urine Total Protein Fluid Total Protein Vancomycin Trough Rheumatoid Factor Complement C4 Miscellaneous Test Crossmatch 10/22/16 10/22/16 10/22/16 11:39 16:44 23:36 WBC RBC Hgb Hct MCV MCH MCHC RDW Plt Count Lymph % (Auto) [place] % (Auto) Lymph # [place] # Baso # Seg Neutrophils % Seg Neuts % (Manual) Lymphocytes % (Manual) Monocytes % (Manual) Eosinophils % (Manual) Basophils % (Manual) Nucleated RBC % Seg Neutrophils # Seg Neutrophils # Man Lymphocytes # (Manual) Monocytes # (Manual) Eosinophils # (Manual) Basophils # (Manual) PT INR Fibrinogen dRVVT Confirm Interp Factor V Activity POC ABG pH POC ABG pCO2 POC ABG pO2 ABG pO2 ABG HCO3 ABG Base Excess ABG Hemoglobin Oxyhemoglobin Sodium Potassium Chloride Carbon Dioxide BUN Creatinine Glucose POC Glucose 142 H 163 H 123 H Lactic Acid Calcium Ionized Calcium Phosphorus Magnesium Direct Bilirubin AST ALT Alkaline Phosphatase Lactate Dehydrogenase Troponin T C-Reactive Protein Total Protein Albumin Prealbumin Triglycerides Cholesterol LDL Cholesterol Direct HDL Cholesterol 25-OH Vitamin D Total PTH Intact Urine pH Urine WBC (Auto) Urine Creatinine Urine Total Protein Fluid Total Protein Vancomycin Trough Rheumatoid Factor Complement C4 Miscellaneous Test Crossmatch 10/23/16 10/23/16 10/23/16 04:58 06:00 12:12 WBC RBC Hgb Hct MCV MCH MCHC RDW Plt Count Lymph % (Auto) [place] % (Auto) Lymph # [place] # Baso # Seg Neutrophils % Seg Neuts % (Manual) Lymphocytes % (Manual) Monocytes % (Manual) Eosinophils % (Manual) Basophils % (Manual) Nucleated RBC % Seg Neutrophils # Seg Neutrophils # Man Lymphocytes # (Manual) Monocytes # (Manual) Eosinophils # (Manual) Basophils # (Manual) PT INR Fibrinogen dRVVT Confirm Interp Factor V Activity POC ABG pH POC ABG pCO2 POC ABG pO2 ABG pO2 ABG HCO3 ABG Base Excess ABG Hemoglobin Oxyhemoglobin Sodium 133 L Potassium 3.5 L Chloride 96.1 L Carbon Dioxide 18 L BUN 76 H Creatinine 2.1 H Glucose POC Glucose 133 H 138 H Lactic Acid Calcium 8.3 L Ionized Calcium Phosphorus Magnesium Direct Bilirubin AST ALT Alkaline Phosphatase Lactate Dehydrogenase Troponin T C-Reactive Protein Total Protein Albumin Prealbumin Triglycerides Cholesterol LDL Cholesterol Direct HDL Cholesterol 25-OH Vitamin D Total PTH Intact Urine pH Urine WBC (Auto) Urine Creatinine Urine Total Protein Fluid Total Protein Vancomycin Trough Rheumatoid Factor Complement C4 Miscellaneous Test Crossmatch 10/23/16 10/23/16 10/24/16 16:53 23:37 04:00 WBC RBC Hgb Hct MCV MCH MCHC RDW Plt Count Lymph % (Auto) [place] % (Auto) Lymph # [place] # Baso # Seg Neutrophils % Seg Neuts % (Manual) Lymphocytes % (Manual) Monocytes % (Manual) Eosinophils % (Manual) Basophils % (Manual) Nucleated RBC % Seg Neutrophils # Seg Neutrophils # Man Lymphocytes # (Manual) Monocytes # (Manual) Eosinophils # (Manual) Basophils # (Manual) PT INR Fibrinogen dRVVT Confirm Interp Factor V Activity POC ABG pH POC ABG pCO2 POC ABG pO2 ABG pO2 ABG HCO3 ABG Base Excess ABG Hemoglobin Oxyhemoglobin Sodium 131 L Potassium Chloride 94.5 L Carbon Dioxide 19 L BUN 97 H Creatinine 2.6 H Glucose 110 H POC Glucose 125 H 123 H Lactic Acid Calcium 8.3 L Ionized Calcium Phosphorus Magnesium Direct Bilirubin AST ALT Alkaline Phosphatase Lactate Dehydrogenase Troponin T C-Reactive Protein Total Protein Albumin Prealbumin Triglycerides Cholesterol LDL Cholesterol Direct HDL Cholesterol 25-OH Vitamin D Total PTH Intact Urine pH Urine WBC (Auto) Urine Creatinine Urine Total Protein Fluid Total Protein Vancomycin Trough Rheumatoid Factor Complement C4 Miscellaneous Test Crossmatch 10/24/16 10/24/16 10/24/16 07:49 11:39 17:52 WBC RBC Hgb 6.0 L Hct 19.7 L* MCV MCH MCHC RDW Plt Count Lymph % (Auto) [place] % (Auto) Lymph # [place] # Baso # Seg Neutrophils % Seg Neuts % (Manual) Lymphocytes % (Manual) Monocytes % (Manual) Eosinophils % (Manual) Basophils % (Manual) Nucleated RBC % Seg Neutrophils # Seg Neutrophils # Man Lymphocytes # (Manual) Monocytes # (Manual) Eosinophils # (Manual) Basophils # (Manual) PT INR Fibrinogen dRVVT Confirm Interp Factor V Activity POC ABG pH POC ABG pCO2 POC ABG pO2 ABG pO2 ABG HCO3 ABG Base Excess ABG Hemoglobin Oxyhemoglobin Sodium Potassium Chloride Carbon Dioxide BUN Creatinine Glucose POC Glucose 106 H 158 H Lactic Acid Calcium Ionized Calcium Phosphorus Magnesium Direct Bilirubin AST ALT Alkaline Phosphatase Lactate Dehydrogenase Troponin T C-Reactive Protein Total Protein Albumin Prealbumin Triglycerides Cholesterol LDL Cholesterol Direct HDL Cholesterol 25-OH Vitamin D Total PTH Intact Urine pH Urine WBC (Auto) Urine Creatinine Urine Total Protein Fluid Total Protein Vancomycin Trough Rheumatoid Factor Complement C4 Miscellaneous Test Crossmatch 10/24/16 10/24/16 10/24/16 20:00 22:27 Unknown WBC RBC Hgb 9.4 L D Hct 27.5 L D MCV MCH MCHC RDW Plt Count Lymph % (Auto) [place] % (Auto) Lymph # [place] # Baso # Seg Neutrophils % Seg Neuts % (Manual) Lymphocytes % (Manual) Monocytes % (Manual) Eosinophils % (Manual) Basophils % (Manual) Nucleated RBC % Seg Neutrophils # Seg Neutrophils # Man Lymphocytes # (Manual) Monocytes # (Manual) Eosinophils # (Manual) Basophils # (Manual) PT INR Fibrinogen dRVVT Confirm Interp Factor V Activity POC ABG pH POC ABG pCO2 POC ABG pO2 ABG pO2 ABG HCO3 ABG Base Excess ABG Hemoglobin Oxyhemoglobin Sodium Potassium Chloride Carbon Dioxide BUN Creatinine Glucose POC Glucose 125 H Lactic Acid Calcium Ionized Calcium Phosphorus Magnesium Direct Bilirubin AST ALT Alkaline Phosphatase Lactate Dehydrogenase Troponin T C-Reactive Protein Total Protein Albumin Prealbumin Triglycerides Cholesterol LDL Cholesterol Direct HDL Cholesterol 25-OH Vitamin D Total PTH Intact Urine pH Urine WBC (Auto) Urine Creatinine Urine Total Protein Fluid Total Protein Vancomycin Trough Rheumatoid Factor Complement C4 Miscellaneous Test Crossmatch See Detail 10/25/16 10/25/16 10/25/16 04:00 04:00 04:00 WBC 14.2 H RBC 2.98 L Hgb 9.0 L Hct 26.2 L MCV MCH MCHC RDW 16.6 H Plt Count Lymph % (Auto) [place] % (Auto) 10.7 H Lymph # [place] # 1.5 H Baso # Seg Neutrophils % 73.6 H Seg Neuts % (Manual) Lymphocytes % (Manual) Monocytes % (Manual) Eosinophils % (Manual) Basophils % (Manual) Nucleated RBC % Seg Neutrophils # 10.5 H Seg Neutrophils # Man Lymphocytes # (Manual) Monocytes # (Manual) Eosinophils # (Manual) Basophils # (Manual) PT INR Fibrinogen dRVVT Confirm Interp Factor V Activity POC ABG pH POC ABG pCO2 POC ABG pO2 ABG pO2 ABG HCO3 ABG Base Excess ABG Hemoglobin Oxyhemoglobin Sodium 132 L Potassium Chloride 94.7 L Carbon Dioxide BUN 51 H Creatinine 1.6 H Glucose 130 H POC Glucose Lactic Acid Calcium 8.3 L Ionized Calcium Phosphorus 1.60 L D Magnesium Direct Bilirubin AST ALT Alkaline Phosphatase Lactate Dehydrogenase Troponin T C-Reactive Protein Total Protein Albumin Prealbumin Triglycerides Cholesterol LDL Cholesterol Direct HDL Cholesterol 25-OH Vitamin D Total PTH Intact Urine pH Urine WBC (Auto) Urine Creatinine Urine Total Protein Fluid Total Protein Vancomycin Trough Rheumatoid Factor Complement C4 Miscellaneous Test Crossmatch 10/25/16 10/25/16 10/25/16 04:32 11:48 17:22 WBC RBC Hgb Hct MCV MCH MCHC RDW Plt Count Lymph % (Auto) [place] % (Auto) Lymph # [place] # Baso # Seg Neutrophils % Seg Neuts % (Manual) Lymphocytes % (Manual) Monocytes % (Manual) Eosinophils % (Manual) Basophils % (Manual) Nucleated RBC % Seg Neutrophils # Seg Neutrophils # Man Lymphocytes # (Manual) Monocytes # (Manual) Eosinophils # (Manual) Basophils # (Manual) PT INR Fibrinogen dRVVT Confirm Interp Factor V Activity POC ABG pH POC ABG pCO2 POC ABG pO2 ABG pO2 ABG HCO3 ABG Base Excess ABG Hemoglobin Oxyhemoglobin Sodium Potassium Chloride Carbon Dioxide BUN Creatinine Glucose POC Glucose 124 H 171 H 120 H Lactic Acid Calcium Ionized Calcium Phosphorus Magnesium Direct Bilirubin AST ALT Alkaline Phosphatase Lactate Dehydrogenase Troponin T C-Reactive Protein Total Protein Albumin Prealbumin Triglycerides Cholesterol LDL Cholesterol Direct HDL Cholesterol 25-OH Vitamin D Total PTH Intact Urine pH Urine WBC (Auto) Urine Creatinine Urine Total Protein Fluid Total Protein Vancomycin Trough Rheumatoid Factor Complement C4 Miscellaneous Test Crossmatch 10/26/16 10/26/16 10/26/16 04:54 07:06 07:06 WBC 16.9 H RBC 3.06 L Hgb 9.1 L Hct 26.9 L MCV MCH MCHC RDW 16.9 H Plt Count Lymph % (Auto) [place] % (Auto) Lymph # [place] # Baso # Seg Neutrophils % Seg Neuts % (Manual) 71.0 H Lymphocytes % (Manual) 5.0 L Monocytes % (Manual) 12.0 H Eosinophils % (Manual) Basophils % (Manual) Nucleated RBC % Seg Neutrophils # Seg Neutrophils # Man 12.0 H Lymphocytes # (Manual) 0.8 L Monocytes # (Manual) 2.0 H Eosinophils # (Manual) Basophils # (Manual) PT INR Fibrinogen dRVVT Confirm Interp Factor V Activity POC ABG pH POC ABG pCO2 POC ABG pO2 ABG pO2 ABG HCO3 ABG Base Excess ABG Hemoglobin Oxyhemoglobin Sodium 135 L Potassium Chloride 97.1 L Carbon Dioxide BUN 73 H Creatinine 2.2 H Glucose 117 H POC Glucose 123 H Lactic Acid Calcium Ionized Calcium Phosphorus 1.70 L Magnesium Direct Bilirubin AST ALT Alkaline Phosphatase Lactate Dehydrogenase Troponin T C-Reactive Protein Total Protein Albumin Prealbumin Triglycerides Cholesterol LDL Cholesterol Direct HDL Cholesterol 25-OH Vitamin D Total PTH Intact Urine pH Urine WBC (Auto) Urine Creatinine Urine Total Protein Fluid Total Protein Vancomycin Trough Rheumatoid Factor Complement C4 Miscellaneous Test Crossmatch 10/26/16 10/26/16 10/26/16 12:12 17:29 23:42 WBC RBC Hgb Hct MCV MCH MCHC RDW Plt Count Lymph % (Auto) [place] % (Auto) Lymph # [place] # Baso # Seg Neutrophils % Seg Neuts % (Manual) Lymphocytes % (Manual) Monocytes % (Manual) Eosinophils % (Manual) Basophils % (Manual) Nucleated RBC % Seg Neutrophils # Seg Neutrophils # Man Lymphocytes # (Manual) Monocytes # (Manual) Eosinophils # (Manual) Basophils # (Manual) PT INR Fibrinogen dRVVT Confirm Interp Factor V Activity POC ABG pH POC ABG pCO2 POC ABG pO2 ABG pO2 ABG HCO3 ABG Base Excess ABG Hemoglobin Oxyhemoglobin Sodium Potassium Chloride Carbon Dioxide BUN Creatinine Glucose POC Glucose 126 H 161 H 118 H Lactic Acid Calcium Ionized Calcium Phosphorus Magnesium Direct Bilirubin AST ALT Alkaline Phosphatase Lactate Dehydrogenase Troponin T C-Reactive Protein Total Protein Albumin Prealbumin Triglycerides Cholesterol LDL Cholesterol Direct HDL Cholesterol 25-OH Vitamin D Total PTH Intact Urine pH Urine WBC (Auto) Urine Creatinine Urine Total Protein Fluid Total Protein Vancomycin Trough Rheumatoid Factor Complement C4 Miscellaneous Test Crossmatch 10/27/16 10/27/16 10/27/16 05:03 06:30 06:30 WBC 13.9 H RBC 3.09 L Hgb 9.2 L Hct 27.5 L MCV MCH MCHC RDW 17.0 H Plt Count Lymph % (Auto) [place] % (Auto) Lymph # [place] # Baso # Seg Neutrophils % Seg Neuts % (Manual) 78.0 H Lymphocytes % (Manual) Monocytes % (Manual) Eosinophils % (Manual) Basophils % (Manual) Nucleated RBC % 2.0 H Seg Neutrophils # Seg Neutrophils # Man 10.8 H Lymphocytes # (Manual) Monocytes # (Manual) 1.0 H Eosinophils # (Manual) Basophils # (Manual) PT INR Fibrinogen dRVVT Confirm Interp Factor V Activity POC ABG pH POC ABG pCO2 POC ABG pO2 ABG pO2 ABG HCO3 ABG Base Excess ABG Hemoglobin Oxyhemoglobin Sodium Potassium Chloride Carbon Dioxide BUN 40 H Creatinine 1.5 H Glucose 135 H POC Glucose 107 H Lactic Acid Calcium 8.3 L Ionized Calcium Phosphorus 1.30 L D Magnesium Direct Bilirubin AST ALT Alkaline Phosphatase Lactate Dehydrogenase Troponin T C-Reactive Protein Total Protein Albumin Prealbumin Triglycerides Cholesterol LDL Cholesterol Direct HDL Cholesterol 25-OH Vitamin D Total PTH Intact Urine pH Urine WBC (Auto) Urine Creatinine Urine Total Protein Fluid Total Protein Vancomycin Trough Rheumatoid Factor Complement C4 Miscellaneous Test Crossmatch 10/27/16 10/27/16 10/27/16 13:27 18:07 23:40 WBC RBC Hgb Hct MCV MCH MCHC RDW Plt Count Lymph % (Auto) [place] % (Auto) Lymph # [place] # Baso # Seg Neutrophils % Seg Neuts % (Manual) Lymphocytes % (Manual) Monocytes % (Manual) Eosinophils % (Manual) Basophils % (Manual) Nucleated RBC % Seg Neutrophils # Seg Neutrophils # Man Lymphocytes # (Manual) Monocytes # (Manual) Eosinophils # (Manual) Basophils # (Manual) PT INR Fibrinogen dRVVT Confirm Interp Factor V Activity POC ABG pH POC ABG pCO2 POC ABG pO2 ABG pO2 ABG HCO3 ABG Base Excess ABG Hemoglobin Oxyhemoglobin Sodium Potassium Chloride Carbon Dioxide BUN Creatinine Glucose POC Glucose 117 H 121 H 118 H Lactic Acid Calcium Ionized Calcium Phosphorus Magnesium Direct Bilirubin AST ALT Alkaline Phosphatase Lactate Dehydrogenase Troponin T C-Reactive Protein Total Protein Albumin Prealbumin Triglycerides Cholesterol LDL Cholesterol Direct HDL Cholesterol 25-OH Vitamin D Total PTH Intact Urine pH Urine WBC (Auto) Urine Creatinine Urine Total Protein Fluid Total Protein Vancomycin Trough Rheumatoid Factor Complement C4 Miscellaneous Test Crossmatch 10/28/16 10/28/16 10/28/16 05:48 06:45 06:45 WBC 14.7 H RBC 3.05 L Hgb 9.0 L Hct 26.9 L MCV MCH MCHC RDW 16.8 H Plt Count Lymph % (Auto) 8.2 L [place] % (Auto) 8.4 H Lymph # [place] # 1.2 H Baso # Seg Neutrophils % 81.9 H Seg Neuts % (Manual) Lymphocytes % (Manual) Monocytes % (Manual) Eosinophils % (Manual) Basophils % (Manual) Nucleated RBC % Seg Neutrophils # 12.1 H Seg Neutrophils # Man Lymphocytes # (Manual) Monocytes # (Manual) Eosinophils # (Manual) Basophils # (Manual) PT INR Fibrinogen dRVVT Confirm Interp Factor V Activity POC ABG pH POC ABG pCO2 POC ABG pO2 ABG pO2 ABG HCO3 ABG Base Excess ABG Hemoglobin Oxyhemoglobin Sodium Potassium Chloride Carbon Dioxide BUN 60 H Creatinine 1.9 H Glucose 120 H POC Glucose 114 H Lactic Acid Calcium Ionized Calcium Phosphorus Magnesium Direct Bilirubin AST ALT Alkaline Phosphatase Lactate Dehydrogenase Troponin T C-Reactive Protein Total Protein Albumin Prealbumin Triglycerides Cholesterol LDL Cholesterol Direct HDL Cholesterol 25-OH Vitamin D Total PTH Intact Urine pH Urine WBC (Auto) Urine Creatinine Urine Total Protein Fluid Total Protein Vancomycin Trough Rheumatoid Factor Complement C4 Miscellaneous Test Crossmatch 10/28/16 10/28/16 10/29/16 17:08 23:50 05:10 WBC RBC Hgb Hct MCV MCH MCHC RDW Plt Count Lymph % (Auto) [place] % (Auto) Lymph # [place] # Baso # Seg Neutrophils % Seg Neuts % (Manual) Lymphocytes % (Manual) Monocytes % (Manual) Eosinophils % (Manual) Basophils % (Manual) Nucleated RBC % Seg Neutrophils # Seg Neutrophils # Man Lymphocytes # (Manual) Monocytes # (Manual) Eosinophils # (Manual) Basophils # (Manual) PT INR Fibrinogen dRVVT Confirm Interp Factor V Activity POC ABG pH POC ABG pCO2 POC ABG pO2 ABG pO2 ABG HCO3 ABG Base Excess ABG Hemoglobin Oxyhemoglobin Sodium Potassium Chloride Carbon Dioxide BUN Creatinine Glucose POC Glucose 109 H 110 H 124 H Lactic Acid Calcium Ionized Calcium Phosphorus Magnesium Direct Bilirubin AST ALT Alkaline Phosphatase Lactate Dehydrogenase Troponin T C-Reactive Protein Total Protein Albumin Prealbumin Triglycerides Cholesterol LDL Cholesterol Direct HDL Cholesterol 25-OH Vitamin D Total PTH Intact Urine pH Urine WBC (Auto) Urine Creatinine Urine Total Protein Fluid Total Protein Vancomycin Trough Rheumatoid Factor Complement C4 Miscellaneous Test Crossmatch 10/29/16 10/29/16 10/29/16 07:45 07:45 12:19 WBC 14.7 H RBC 3.15 L Hgb 9.3 L Hct 28.9 L MCV MCH MCHC RDW 17.0 H Plt Count Lymph % (Auto) 11.9 L [place] % (Auto) 8.6 H Lymph # [place] # 1.3 H Baso # Seg Neutrophils % 78.1 H Seg Neuts % (Manual) Lymphocytes % (Manual) Monocytes % (Manual) Eosinophils % (Manual) Basophils % (Manual) Nucleated RBC % Seg Neutrophils # 11.4 H Seg Neutrophils # Man Lymphocytes # (Manual) Monocytes # (Manual) Eosinophils # (Manual) Basophils # (Manual) PT INR Fibrinogen dRVVT Confirm Interp Factor V Activity POC ABG pH POC ABG pCO2 POC ABG pO2 ABG pO2 ABG HCO3 ABG Base Excess ABG Hemoglobin Oxyhemoglobin Sodium Potassium 5.1 H Chloride Carbon Dioxide 19 L BUN 78 H Creatinine 2.2 H Glucose 116 H POC Glucose 118 H Lactic Acid Calcium Ionized Calcium Phosphorus Magnesium Direct Bilirubin AST ALT Alkaline Phosphatase Lactate Dehydrogenase Troponin T C-Reactive Protein Total Protein Albumin Prealbumin Triglycerides Cholesterol LDL Cholesterol Direct HDL Cholesterol 25-OH Vitamin D Total PTH Intact Urine pH Urine WBC (Auto) Urine Creatinine Urine Total Protein Fluid Total Protein Vancomycin Trough Rheumatoid Factor Complement C4 Miscellaneous Test Crossmatch 10/29/16 10/30/16 10/30/16 17:49 01:52 03:28 WBC RBC Hgb Hct MCV MCH MCHC RDW Plt Count Lymph % (Auto) [place] % (Auto) Lymph # [place] # Baso # Seg Neutrophils % Seg Neuts % (Manual) Lymphocytes % (Manual) Monocytes % (Manual) Eosinophils % (Manual) Basophils % (Manual) Nucleated RBC % Seg Neutrophils # Seg Neutrophils # Man Lymphocytes # (Manual) Monocytes # (Manual) Eosinophils # (Manual) Basophils # (Manual) PT INR Fibrinogen dRVVT Confirm Interp Factor V Activity POC ABG pH POC ABG pCO2 POC ABG pO2 ABG pO2 ABG HCO3 ABG Base Excess ABG Hemoglobin Oxyhemoglobin Sodium Potassium 5.4 H Chloride 97.5 L Carbon Dioxide 19 L BUN 90 H Creatinine 2.5 H Glucose POC Glucose 120 H 129 H Lactic Acid Calcium Ionized Calcium Phosphorus 5.20 H Magnesium Direct Bilirubin AST ALT Alkaline Phosphatase Lactate Dehydrogenase Troponin T C-Reactive Protein Total Protein Albumin Prealbumin Triglycerides Cholesterol LDL Cholesterol Direct HDL Cholesterol 25-OH Vitamin D Total PTH Intact Urine pH Urine WBC (Auto) Urine Creatinine Urine Total Protein Fluid Total Protein Vancomycin Trough Rheumatoid Factor Complement C4 Miscellaneous Test Crossmatch 10/30/16 10/30/16 10/30/16 03:28 08:19 08:19 WBC 11.6 H 15.9 H RBC 2.75 L 2.82 L Hgb 7.9 L 8.3 L Hct 24.2 L 25.2 L MCV MCH MCHC RDW 16.7 H 17.2 H Plt Count Lymph % (Auto) [place] % (Auto) 9.8 H Lymph # [place] # 1.1 H Baso # Seg Neutrophils % 74.2 H Seg Neuts % (Manual) Lymphocytes % (Manual) Monocytes % (Manual) Eosinophils % (Manual) Basophils % (Manual) Nucleated RBC % Seg Neutrophils # 8.6 H Seg Neutrophils # Man Lymphocytes # (Manual) Monocytes # (Manual) Eosinophils # (Manual) Basophils # (Manual) PT INR Fibrinogen dRVVT Confirm Interp Factor V Activity POC ABG pH POC ABG pCO2 POC ABG pO2 ABG pO2 ABG HCO3 ABG Base Excess ABG Hemoglobin Oxyhemoglobin Sodium Potassium 5.3 H Chloride 97.4 L Carbon Dioxide 19 L BUN 93 H Creatinine 2.6 H Glucose POC Glucose Lactic Acid Calcium Ionized Calcium Phosphorus Magnesium Direct Bilirubin AST ALT Alkaline Phosphatase Lactate Dehydrogenase Troponin T C-Reactive Protein Total Protein Albumin Prealbumin Triglycerides Cholesterol LDL Cholesterol Direct HDL Cholesterol 25-OH Vitamin D Total PTH Intact Urine pH Urine WBC (Auto) Urine Creatinine Urine Total Protein Fluid Total Protein Vancomycin Trough Rheumatoid Factor Complement C4 Miscellaneous Test Crossmatch 10/30/16 10/30/16 10/31/16 17:11 23:56 00:40 WBC RBC Hgb Hct MCV MCH MCHC RDW Plt Count Lymph % (Auto) [place] % (Auto) Lymph # [place] # Baso # Seg Neutrophils % Seg Neuts % (Manual) Lymphocytes % (Manual) Monocytes % (Manual) Eosinophils % (Manual) Basophils % (Manual) Nucleated RBC % Seg Neutrophils # Seg Neutrophils # Man Lymphocytes # (Manual) Monocytes # (Manual) Eosinophils # (Manual) Basophils # (Manual) PT INR Fibrinogen dRVVT Confirm Interp Factor V Activity POC ABG pH POC ABG pCO2 POC ABG pO2 ABG pO2 ABG HCO3 ABG Base Excess ABG Hemoglobin Oxyhemoglobin Sodium Potassium Chloride Carbon Dioxide BUN Creatinine Glucose POC Glucose 106 H 117 H 120 H Lactic Acid Calcium Ionized Calcium Phosphorus Magnesium Direct Bilirubin AST ALT Alkaline Phosphatase Lactate Dehydrogenase Troponin T C-Reactive Protein Total Protein Albumin Prealbumin Triglycerides Cholesterol LDL Cholesterol Direct HDL Cholesterol 25-OH Vitamin D Total PTH Intact Urine pH Urine WBC (Auto) Urine Creatinine Urine Total Protein Fluid Total Protein Vancomycin Trough Rheumatoid Factor Complement C4 Miscellaneous Test Crossmatch 10/31/16 10/31/16 10/31/16 05:43 07:15 07:15 WBC 12.1 H RBC 2.63 L Hgb 7.7 L Hct 23.3 L MCV MCH MCHC RDW 16.7 H Plt Count Lymph % (Auto) 11.7 L [place] % (Auto) 7.7 H Lymph # [place] # 0.9 H Baso # Seg Neutrophils % 78.0 H Seg Neuts % (Manual) Lymphocytes % (Manual) Monocytes % (Manual) Eosinophils % (Manual) Basophils % (Manual) Nucleated RBC % Seg Neutrophils # 9.4 H Seg Neutrophils # Man Lymphocytes # (Manual) Monocytes # (Manual) Eosinophils # (Manual) Basophils # (Manual) PT INR Fibrinogen dRVVT Confirm Interp Factor V Activity POC ABG pH POC ABG pCO2 POC ABG pO2 ABG pO2 ABG HCO3 ABG Base Excess ABG Hemoglobin Oxyhemoglobin Sodium Potassium Chloride 96.4 L Carbon Dioxide 21 L BUN 99 H Creatinine 2.6 H Glucose 144 H POC Glucose 125 H Lactic Acid Calcium Ionized Calcium Phosphorus 4.80 H Magnesium Direct Bilirubin AST ALT Alkaline Phosphatase Lactate Dehydrogenase Troponin T C-Reactive Protein Total Protein Albumin Prealbumin Triglycerides Cholesterol LDL Cholesterol Direct HDL Cholesterol 25-OH Vitamin D Total PTH Intact Urine pH Urine WBC (Auto) Urine Creatinine Urine Total Protein Fluid Total Protein Vancomycin Trough Rheumatoid Factor Complement C4 Miscellaneous Test Crossmatch 10/31/16 10/31/16 11/01/16 11:46 18:34 00:20 WBC RBC Hgb Hct MCV MCH MCHC RDW Plt Count Lymph % (Auto) [place] % (Auto) Lymph # [place] # Baso # Seg Neutrophils % Seg Neuts % (Manual) Lymphocytes % (Manual) Monocytes % (Manual) Eosinophils % (Manual) Basophils % (Manual) Nucleated RBC % Seg Neutrophils # Seg Neutrophils # Man Lymphocytes # (Manual) Monocytes # (Manual) Eosinophils # (Manual) Basophils # (Manual) PT INR Fibrinogen dRVVT Confirm Interp Factor V Activity POC ABG pH POC ABG pCO2 POC ABG pO2 ABG pO2 ABG HCO3 ABG Base Excess ABG Hemoglobin Oxyhemoglobin Sodium Potassium Chloride Carbon Dioxide BUN Creatinine Glucose POC Glucose 159 H 140 H 132 H Lactic Acid Calcium Ionized Calcium Phosphorus Magnesium Direct Bilirubin AST ALT Alkaline Phosphatase Lactate Dehydrogenase Troponin T C-Reactive Protein Total Protein Albumin Prealbumin Triglycerides Cholesterol LDL Cholesterol Direct HDL Cholesterol 25-OH Vitamin D Total PTH Intact Urine pH Urine WBC (Auto) Urine Creatinine Urine Total Protein Fluid Total Protein Vancomycin Trough Rheumatoid Factor Complement C4 Miscellaneous Test Crossmatch 11/01/16 11/01/16 11/01/16 04:55 04:55 06:11 WBC 11.2 H RBC 2.68 L Hgb 7.5 L Hct 23.7 L MCV MCH MCHC RDW 16.1 H Plt Count Lymph % (Auto) [place] % (Auto) 9.8 H Lymph # [place] # 1.1 H Baso # Seg Neutrophils % 70.8 H Seg Neuts % (Manual) Lymphocytes % (Manual) Monocytes % (Manual) Eosinophils % (Manual) Basophils % (Manual) Nucleated RBC % Seg Neutrophils # 7.9 H Seg Neutrophils # Man Lymphocytes # (Manual) Monocytes # (Manual) Eosinophils # (Manual) Basophils # (Manual) PT INR Fibrinogen dRVVT Confirm Interp Factor V Activity POC ABG pH POC ABG pCO2 POC ABG pO2 ABG pO2 ABG HCO3 ABG Base Excess ABG Hemoglobin Oxyhemoglobin Sodium Potassium 3.3 L D Chloride Carbon Dioxide BUN 61 H Creatinine 1.9 H Glucose 114 H POC Glucose 115 H Lactic Acid Calcium Ionized Calcium Phosphorus 1.80 L D Magnesium Direct Bilirubin AST ALT Alkaline Phosphatase Lactate Dehydrogenase Troponin T C-Reactive Protein Total Protein Albumin Prealbumin Triglycerides Cholesterol LDL Cholesterol Direct HDL Cholesterol 25-OH Vitamin D Total PTH Intact Urine pH Urine WBC (Auto) Urine Creatinine Urine Total Protein Fluid Total Protein Vancomycin Trough Rheumatoid Factor Complement C4 Miscellaneous Test Crossmatch 11/01/16 11/01/16 11/01/16 12:29 18:23 23:58 WBC RBC Hgb Hct MCV MCH MCHC RDW Plt Count Lymph % (Auto) [place] % (Auto) Lymph # [place] # Baso # Seg Neutrophils % Seg Neuts % (Manual) Lymphocytes % (Manual) Monocytes % (Manual) Eosinophils % (Manual) Basophils % (Manual) Nucleated RBC % Seg Neutrophils # Seg Neutrophils # Man Lymphocytes # (Manual) Monocytes # (Manual) Eosinophils # (Manual) Basophils # (Manual) PT INR Fibrinogen dRVVT Confirm Interp Factor V Activity POC ABG pH POC ABG pCO2 POC ABG pO2 ABG pO2 ABG HCO3 ABG Base Excess ABG Hemoglobin Oxyhemoglobin Sodium Potassium Chloride Carbon Dioxide BUN Creatinine Glucose POC Glucose 142 H 143 H 128 H Lactic Acid Calcium Ionized Calcium Phosphorus Magnesium Direct Bilirubin AST ALT Alkaline Phosphatase Lactate Dehydrogenase Troponin T C-Reactive Protein Total Protein Albumin Prealbumin Triglycerides Cholesterol LDL Cholesterol Direct HDL Cholesterol 25-OH Vitamin D Total PTH Intact Urine pH Urine WBC (Auto) Urine Creatinine Urine Total Protein Fluid Total Protein Vancomycin Trough Rheumatoid Factor Complement C4 Miscellaneous Test Crossmatch 11/02/16 11/02/16 11/02/16 04:16 05:29 11:58 WBC RBC Hgb Hct MCV MCH MCHC RDW Plt Count Lymph % (Auto) [place] % (Auto) Lymph # [place] # Baso # Seg Neutrophils % Seg Neuts % (Manual) Lymphocytes % (Manual) Monocytes % (Manual) Eosinophils % (Manual) Basophils % (Manual) Nucleated RBC % Seg Neutrophils # Seg Neutrophils # Man Lymphocytes # (Manual) Monocytes # (Manual) Eosinophils # (Manual) Basophils # (Manual) PT INR Fibrinogen dRVVT Confirm Interp Factor V Activity POC ABG pH POC ABG pCO2 POC ABG pO2 ABG pO2 ABG HCO3 ABG Base Excess ABG Hemoglobin Oxyhemoglobin Sodium Potassium 3.1 L Chloride Carbon Dioxide BUN 73 H Creatinine 2.3 H Glucose 112 H POC Glucose 135 H 149 H Lactic Acid Calcium Ionized Calcium Phosphorus Magnesium Direct Bilirubin AST ALT Alkaline Phosphatase Lactate Dehydrogenase Troponin T C-Reactive Protein Total Protein Albumin Prealbumin Triglycerides Cholesterol LDL Cholesterol Direct HDL Cholesterol 25-OH Vitamin D Total PTH Intact Urine pH Urine WBC (Auto) Urine Creatinine Urine Total Protein Fluid Total Protein Vancomycin Trough Rheumatoid Factor Complement C4 Miscellaneous Test Crossmatch 11/02/16 11/02/16 11/03/16 17:42 22:54 06:00 WBC RBC Hgb Hct MCV MCH MCHC RDW Plt Count Lymph % (Auto) [place] % (Auto) Lymph # [place] # Baso # Seg Neutrophils % Seg Neuts % (Manual) Lymphocytes % (Manual) Monocytes % (Manual) Eosinophils % (Manual) Basophils % (Manual) Nucleated RBC % Seg Neutrophils # Seg Neutrophils # Man Lymphocytes # (Manual) Monocytes # (Manual) Eosinophils # (Manual) Basophils # (Manual) PT INR Fibrinogen dRVVT Confirm Interp Factor V Activity POC ABG pH POC ABG pCO2 POC ABG pO2 ABG pO2 ABG HCO3 ABG Base Excess ABG Hemoglobin Oxyhemoglobin Sodium Potassium Chloride 96.7 L Carbon Dioxide BUN 41 H Creatinine 1.5 H Glucose 145 H POC Glucose 182 H 115 H Lactic Acid Calcium Ionized Calcium Phosphorus 1.60 L D Magnesium 1.50 L Direct Bilirubin AST ALT Alkaline Phosphatase Lactate Dehydrogenase Troponin T C-Reactive Protein Total Protein Albumin Prealbumin Triglycerides Cholesterol LDL Cholesterol Direct HDL Cholesterol 25-OH Vitamin D Total PTH Intact Urine pH Urine WBC (Auto) Urine Creatinine Urine Total Protein Fluid Total Protein Vancomycin Trough Rheumatoid Factor Complement C4 Miscellaneous Test Crossmatch 11/03/16 11/03/16 11/03/16 11:53 17:45 23:37 WBC RBC Hgb Hct MCV MCH MCHC RDW Plt Count Lymph % (Auto) [place] % (Auto) Lymph # [place] # Baso # Seg Neutrophils % Seg Neuts % (Manual) Lymphocytes % (Manual) Monocytes % (Manual) Eosinophils % (Manual) Basophils % (Manual) Nucleated RBC % Seg Neutrophils # Seg Neutrophils # Man Lymphocytes # (Manual) Monocytes # (Manual) Eosinophils # (Manual) Basophils # (Manual) PT INR Fibrinogen dRVVT Confirm Interp Factor V Activity POC ABG pH POC ABG pCO2 POC ABG pO2 ABG pO2 ABG HCO3 ABG Base Excess ABG Hemoglobin Oxyhemoglobin Sodium Potassium Chloride Carbon Dioxide BUN Creatinine Glucose POC Glucose 131 H 134 H 113 H Lactic Acid Calcium Ionized Calcium Phosphorus Magnesium Direct Bilirubin AST ALT Alkaline Phosphatase Lactate Dehydrogenase Troponin T C-Reactive Protein Total Protein Albumin Prealbumin Triglycerides Cholesterol LDL Cholesterol Direct HDL Cholesterol 25-OH Vitamin D Total PTH Intact Urine pH Urine WBC (Auto) Urine Creatinine Urine Total Protein Fluid Total Protein Vancomycin Trough Rheumatoid Factor Complement C4 Miscellaneous Test Crossmatch 11/04/16 11/04/16 11/04/16 05:41 06:00 12:10 WBC RBC Hgb Hct MCV MCH MCHC RDW Plt Count Lymph % (Auto) [place] % (Auto) Lymph # [place] # Baso # Seg Neutrophils % Seg Neuts % (Manual) Lymphocytes % (Manual) Monocytes % (Manual) Eosinophils % (Manual) Basophils % (Manual) Nucleated RBC % Seg Neutrophils # Seg Neutrophils # Man Lymphocytes # (Manual) Monocytes # (Manual) Eosinophils # (Manual) Basophils # (Manual) PT INR Fibrinogen dRVVT Confirm Interp Factor V Activity POC ABG pH POC ABG pCO2 POC ABG pO2 ABG pO2 ABG HCO3 ABG Base Excess ABG Hemoglobin Oxyhemoglobin Sodium Potassium Chloride 96.7 L Carbon Dioxide BUN 52 H Creatinine 1.9 H Glucose 126 H POC Glucose 137 H 191 H Lactic Acid Calcium Ionized Calcium Phosphorus Magnesium Direct Bilirubin AST ALT Alkaline Phosphatase Lactate Dehydrogenase Troponin T C-Reactive Protein Total Protein Albumin Prealbumin Triglycerides Cholesterol LDL Cholesterol Direct HDL Cholesterol 25-OH Vitamin D Total PTH Intact Urine pH Urine WBC (Auto) Urine Creatinine Urine Total Protein Fluid Total Protein Vancomycin Trough Rheumatoid Factor Complement C4 Miscellaneous Test Crossmatch 11/04/16 11/05/16 11/05/16 22:57 03:10 05:10 WBC RBC Hgb Hct MCV MCH MCHC RDW Plt Count Lymph % (Auto) [place] % (Auto) Lymph # [place] # Baso # Seg Neutrophils % Seg Neuts % (Manual) Lymphocytes % (Manual) Monocytes % (Manual) Eosinophils % (Manual) Basophils % (Manual) Nucleated RBC % Seg Neutrophils # Seg Neutrophils # Man Lymphocytes # (Manual) Monocytes # (Manual) Eosinophils # (Manual) Basophils # (Manual) PT INR Fibrinogen dRVVT Confirm Interp Factor V Activity POC ABG pH POC ABG pCO2 POC ABG pO2 ABG pO2 ABG HCO3 ABG Base Excess ABG Hemoglobin Oxyhemoglobin Sodium 136 L Potassium Chloride 97.2 L Carbon Dioxide BUN 32 H Creatinine 1.3 H Glucose 123 H POC Glucose 125 H 108 H Lactic Acid Calcium 7.8 L Ionized Calcium Phosphorus Magnesium Direct Bilirubin AST ALT Alkaline Phosphatase Lactate Dehydrogenase Troponin T C-Reactive Protein Total Protein Albumin Prealbumin Triglycerides Cholesterol LDL Cholesterol Direct HDL Cholesterol 25-OH Vitamin D Total PTH Intact Urine pH Urine WBC (Auto) Urine Creatinine Urine Total Protein Fluid Total Protein Vancomycin Trough Rheumatoid Factor Complement C4 Miscellaneous Test Crossmatch 11/05/16 11/05/16 11/05/16 12:23 13:09 13:25 WBC RBC Hgb Hct MCV MCH MCHC RDW Plt Count Lymph % (Auto) [place] % (Auto) Lymph # [place] # Baso # Seg Neutrophils % Seg Neuts % (Manual) Lymphocytes % (Manual) Monocytes % (Manual) Eosinophils % (Manual) Basophils % (Manual) Nucleated RBC % Seg Neutrophils # Seg Neutrophils # Man Lymphocytes # (Manual) Monocytes # (Manual) Eosinophils # (Manual) Basophils # (Manual) PT INR Fibrinogen dRVVT Confirm Interp Factor V Activity POC ABG pH POC ABG pCO2 POC ABG pO2 ABG pO2 ABG HCO3 ABG Base Excess ABG Hemoglobin Oxyhemoglobin Sodium Potassium Chloride Carbon Dioxide BUN Creatinine Glucose POC Glucose 124 H Lactic Acid Calcium Ionized Calcium Phosphorus Magnesium Direct Bilirubin AST ALT Alkaline Phosphatase Lactate Dehydrogenase Troponin T C-Reactive Protein 11.40 H Total Protein Albumin Prealbumin Triglycerides Cholesterol LDL Cholesterol Direct HDL Cholesterol 25-OH Vitamin D Total PTH Intact Urine pH 9.0 H Urine WBC (Auto) Urine Creatinine Urine Total Protein Fluid Total Protein Vancomycin Trough Rheumatoid Factor Complement C4 Miscellaneous Test Crossmatch 11/05/16 11/05/16 11/05/16 13:25 17:54 23:42 WBC RBC Hgb Hct MCV MCH MCHC RDW Plt Count Lymph % (Auto) [place] % (Auto) Lymph # [place] # Baso # Seg Neutrophils % Seg Neuts % (Manual) Lymphocytes % (Manual) Monocytes % (Manual) Eosinophils % (Manual) Basophils % (Manual) Nucleated RBC % Seg Neutrophils # Seg Neutrophils # Man Lymphocytes # (Manual) Monocytes # (Manual) Eosinophils # (Manual) Basophils # (Manual) PT INR Fibrinogen dRVVT Confirm Interp Factor V Activity POC ABG pH POC ABG pCO2 POC ABG pO2 ABG pO2 ABG HCO3 ABG Base Excess ABG Hemoglobin Oxyhemoglobin Sodium Potassium Chloride Carbon Dioxide BUN Creatinine Glucose POC Glucose 114 H 134 H Lactic Acid Calcium Ionized Calcium Phosphorus Magnesium Direct Bilirubin AST ALT Alkaline Phosphatase Lactate Dehydrogenase Troponin T C-Reactive Protein Total Protein Albumin Prealbumin Triglycerides Cholesterol LDL Cholesterol Direct HDL Cholesterol 25-OH Vitamin D Total PTH Intact Urine pH Urine WBC (Auto) Urine Creatinine Urine Total Protein Fluid Total Protein Vancomycin Trough Rheumatoid Factor Complement C4 Miscellaneous Test Flexitest 1 H Crossmatch 11/06/16 11/06/16 11/06/16 04:56 06:25 06:25 WBC RBC 2.50 L Hgb 7.3 L Hct 22.5 L MCV MCH MCHC RDW 16.9 H Plt Count Lymph % (Auto) [place] % (Auto) 10.5 H Lymph # [place] # 1.1 H Baso # Seg Neutrophils % Seg Neuts % (Manual) Lymphocytes % (Manual) Monocytes % (Manual) Eosinophils % (Manual) Basophils % (Manual) Nucleated RBC % Seg Neutrophils # Seg Neutrophils # Man Lymphocytes # (Manual) Monocytes # (Manual) Eosinophils # (Manual) Basophils # (Manual) PT INR Fibrinogen dRVVT Confirm Interp Factor V Activity POC ABG pH POC ABG pCO2 POC ABG pO2 ABG pO2 ABG HCO3 ABG Base Excess ABG Hemoglobin Oxyhemoglobin Sodium Potassium 5.1 H Chloride 95.9 L Carbon Dioxide BUN 52 H Creatinine 1.8 H Glucose 117 H POC Glucose 120 H Lactic Acid Calcium Ionized Calcium Phosphorus Magnesium Direct Bilirubin AST 103 H ALT 77 H Alkaline Phosphatase 285 H Lactate Dehydrogenase Troponin T C-Reactive Protein Total Protein 6.2 L Albumin 1.8 L Prealbumin 0.180 L Triglycerides Cholesterol LDL Cholesterol Direct HDL Cholesterol 25-OH Vitamin D Total PTH Intact Urine pH Urine WBC (Auto) Urine Creatinine Urine Total Protein Fluid Total Protein Vancomycin Trough Rheumatoid Factor Complement C4 Miscellaneous Test Crossmatch 11/06/16 11/06/16 11/06/16 11:56 17:14 23:52 WBC RBC Hgb Hct MCV MCH MCHC RDW Plt Count Lymph % (Auto) [place] % (Auto) Lymph # [place] # Baso # Seg Neutrophils % Seg Neuts % (Manual) Lymphocytes % (Manual) Monocytes % (Manual) Eosinophils % (Manual) Basophils % (Manual) Nucleated RBC % Seg Neutrophils # Seg Neutrophils # Man Lymphocytes # (Manual) Monocytes # (Manual) Eosinophils # (Manual) Basophils # (Manual) PT INR Fibrinogen dRVVT Confirm Interp Factor V Activity POC ABG pH POC ABG pCO2 POC ABG pO2 ABG pO2 ABG HCO3 ABG Base Excess ABG Hemoglobin Oxyhemoglobin Sodium Potassium Chloride Carbon Dioxide BUN Creatinine Glucose POC Glucose 141 H 125 H 130 H Lactic Acid Calcium Ionized Calcium Phosphorus Magnesium Direct Bilirubin AST ALT Alkaline Phosphatase Lactate Dehydrogenase Troponin T C-Reactive Protein Total Protein Albumin Prealbumin Triglycerides Cholesterol LDL Cholesterol Direct HDL Cholesterol 25-OH Vitamin D Total PTH Intact Urine pH Urine WBC (Auto) Urine Creatinine Urine Total Protein Fluid Total Protein Vancomycin Trough Rheumatoid Factor Complement C4 Miscellaneous Test Crossmatch 11/07/16 11/07/16 11/07/16 06:30 06:30 09:37 WBC RBC 2.18 L Hgb 6.3 L Hct 19.7 L* MCV MCH MCHC RDW 16.8 H Plt Count Lymph % (Auto) [place] % (Auto) 10.0 H Lymph # [place] # 1.0 H Baso # Seg Neutrophils % Seg Neuts % (Manual) Lymphocytes % (Manual) Monocytes % (Manual) Eosinophils % (Manual) Basophils % (Manual) Nucleated RBC % Seg Neutrophils # Seg Neutrophils # Man Lymphocytes # (Manual) Monocytes # (Manual) Eosinophils # (Manual) Basophils # (Manual) PT INR Fibrinogen dRVVT Confirm Interp Factor V Activity POC ABG pH POC ABG pCO2 POC ABG pO2 ABG pO2 ABG HCO3 ABG Base Excess ABG Hemoglobin Oxyhemoglobin Sodium 135 L Potassium Chloride 95.6 L Carbon Dioxide BUN 70 H Creatinine 2.0 H Glucose 126 H POC Glucose Lactic Acid Calcium Ionized Calcium Phosphorus Magnesium Direct Bilirubin AST ALT Alkaline Phosphatase Lactate Dehydrogenase Troponin T C-Reactive Protein Total Protein Albumin Prealbumin Triglycerides Cholesterol LDL Cholesterol Direct HDL Cholesterol 25-OH Vitamin D Total PTH Intact Urine pH Urine WBC (Auto) Urine Creatinine Urine Total Protein Fluid Total Protein Vancomycin Trough Rheumatoid Factor Complement C4 Miscellaneous Test Crossmatch See Detail 11/07/16 11/07/16 11/07/16 12:52 18:51 21:26 WBC RBC Hgb Hct MCV MCH MCHC RDW Plt Count Lymph % (Auto) [place] % (Auto) Lymph # [place] # Baso # Seg Neutrophils % Seg Neuts % (Manual) Lymphocytes % (Manual) Monocytes % (Manual) Eosinophils % (Manual) Basophils % (Manual) Nucleated RBC % Seg Neutrophils # Seg Neutrophils # Man Lymphocytes # (Manual) Monocytes # (Manual) Eosinophils # (Manual) Basophils # (Manual) PT INR Fibrinogen dRVVT Confirm Interp Factor V Activity POC ABG pH 7.523 H POC ABG pCO2 34.6 L POC ABG pO2 53 L ABG pO2 ABG HCO3 ABG Base Excess ABG Hemoglobin Oxyhemoglobin Sodium Potassium Chloride Carbon Dioxide BUN Creatinine Glucose POC Glucose 142 H 155 H Lactic Acid Calcium Ionized Calcium Phosphorus Magnesium Direct Bilirubin AST ALT Alkaline Phosphatase Lactate Dehydrogenase Troponin T C-Reactive Protein Total Protein Albumin Prealbumin Triglycerides Cholesterol LDL Cholesterol Direct HDL Cholesterol 25-OH Vitamin D Total PTH Intact Urine pH Urine WBC (Auto) Urine Creatinine Urine Total Protein Fluid Total Protein Vancomycin Trough Rheumatoid Factor Complement C4 Miscellaneous Test Crossmatch 11/07/16 11/08/16 11/08/16 21:34 13:03 23:37 WBC RBC 2.63 L Hgb 7.7 L Hct 22.7 L MCV MCH MCHC RDW 17.0 H Plt Count Lymph % (Auto) [place] % (Auto) Lymph # [place] # Baso # Seg Neutrophils % Seg Neuts % (Manual) Lymphocytes % (Manual) Monocytes % (Manual) Eosinophils % (Manual) Basophils % (Manual) Nucleated RBC % Seg Neutrophils # Seg Neutrophils # Man Lymphocytes # (Manual) Monocytes # (Manual) Eosinophils # (Manual) Basophils # (Manual) PT INR Fibrinogen dRVVT Confirm Interp Factor V Activity POC ABG pH 7.478 H POC ABG pCO2 34.0 L POC ABG pO2 50 L ABG pO2 ABG HCO3 ABG Base Excess ABG Hemoglobin Oxyhemoglobin Sodium Potassium Chloride Carbon Dioxide BUN Creatinine Glucose POC Glucose 113 H Lactic Acid Calcium Ionized Calcium Phosphorus Magnesium Direct Bilirubin AST ALT Alkaline Phosphatase Lactate Dehydrogenase Troponin T C-Reactive Protein Total Protein Albumin Prealbumin Triglycerides Cholesterol LDL Cholesterol Direct HDL Cholesterol 25-OH Vitamin D Total PTH Intact Urine pH Urine WBC (Auto) Urine Creatinine Urine Total Protein Fluid Total Protein Vancomycin Trough Rheumatoid Factor Complement C4 Miscellaneous Test Crossmatch 11/09/16 11/09/16 11/09/16 04:35 10:15 18:21 WBC RBC 2.68 L Hgb 7.8 L Hct 23.3 L MCV MCH MCHC RDW 17.0 H Plt Count Lymph % (Auto) [place] % (Auto) 12.1 H Lymph # [place] # 1.1 H Baso # Seg Neutrophils % Seg Neuts % (Manual) Lymphocytes % (Manual) Monocytes % (Manual) Eosinophils % (Manual) Basophils % (Manual) Nucleated RBC % Seg Neutrophils # Seg Neutrophils # Man Lymphocytes # (Manual) Monocytes # (Manual) Eosinophils # (Manual) Basophils # (Manual) PT INR Fibrinogen dRVVT Confirm Interp Factor V Activity POC ABG pH POC ABG pCO2 POC ABG pO2 ABG pO2 ABG HCO3 ABG Base Excess ABG Hemoglobin Oxyhemoglobin Sodium Potassium Chloride Carbon Dioxide BUN 51 H Creatinine 1.8 H Glucose POC Glucose 60 L Lactic Acid Calcium 8.3 L Ionized Calcium Phosphorus Magnesium Direct Bilirubin AST ALT Alkaline Phosphatase Lactate Dehydrogenase Troponin T C-Reactive Protein Total Protein Albumin Prealbumin Triglycerides Cholesterol LDL Cholesterol Direct HDL Cholesterol 25-OH Vitamin D Total PTH Intact Urine pH Urine WBC (Auto) Urine Creatinine Urine Total Protein Fluid Total Protein Vancomycin Trough Rheumatoid Factor Complement C4 Miscellaneous Test Crossmatch 11/09/16 11/10/16 11/10/16 18:55 07:00 11:51 WBC RBC Hgb Hct MCV MCH MCHC RDW Plt Count Lymph % (Auto) [place] % (Auto) Lymph # [place] # Baso # Seg Neutrophils % Seg Neuts % (Manual) Lymphocytes % (Manual) Monocytes % (Manual) Eosinophils % (Manual) Basophils % (Manual) Nucleated RBC % Seg Neutrophils # Seg Neutrophils # Man Lymphocytes # (Manual) Monocytes # (Manual) Eosinophils # (Manual) Basophils # (Manual) PT INR Fibrinogen dRVVT Confirm Interp Factor V Activity POC ABG pH POC ABG pCO2 POC ABG pO2 ABG pO2 ABG HCO3 ABG Base Excess ABG Hemoglobin Oxyhemoglobin Sodium Potassium 3.0 L D Chloride 97.4 L Carbon Dioxide BUN 28 H Creatinine 1.3 H Glucose POC Glucose 68 L 120 H Lactic Acid Calcium 7.8 L Ionized Calcium Phosphorus Magnesium Direct Bilirubin AST ALT Alkaline Phosphatase Lactate Dehydrogenase Troponin T C-Reactive Protein Total Protein Albumin Prealbumin Triglycerides Cholesterol LDL Cholesterol Direct HDL Cholesterol 25-OH Vitamin D Total PTH Intact Urine pH Urine WBC (Auto) Urine Creatinine Urine Total Protein Fluid Total Protein Vancomycin Trough Rheumatoid Factor Complement C4 Miscellaneous Test Crossmatch 11/10/16 11/11/16 11/11/16 14:20 06:59 06:59 WBC RBC 2.81 L Hgb 8.1 L Hct 24.4 L MCV MCH MCHC RDW 16.4 H Plt Count Lymph % (Auto) [place] % (Auto) 10.8 H Lymph # [place] # 1.0 H Baso # Seg Neutrophils % Seg Neuts % (Manual) Lymphocytes % (Manual) Monocytes % (Manual) Eosinophils % (Manual) Basophils % (Manual) Nucleated RBC % Seg Neutrophils # Seg Neutrophils # Man Lymphocytes # (Manual) Monocytes # (Manual) Eosinophils # (Manual) Basophils # (Manual) PT INR Fibrinogen dRVVT Confirm Interp Factor V Activity POC ABG pH POC ABG pCO2 POC ABG pO2 ABG pO2 ABG HCO3 ABG Base Excess ABG Hemoglobin Oxyhemoglobin Sodium Potassium Chloride Carbon Dioxide BUN Creatinine Glucose POC Glucose Lactic Acid Calcium Ionized Calcium Phosphorus Magnesium Direct Bilirubin AST ALT Alkaline Phosphatase Lactate Dehydrogenase 196 H Troponin T C-Reactive Protein Total Protein 6.1 L Albumin Prealbumin Triglycerides Cholesterol LDL Cholesterol Direct HDL Cholesterol 25-OH Vitamin D Total PTH Intact Urine pH Urine WBC (Auto) Urine Creatinine Urine Total Protein Fluid Total Protein < 3.0 L Vancomycin Trough Rheumatoid Factor Complement C4 Miscellaneous Test Crossmatch 11/11/16 11/11/16 11/12/16 06:59 09:50 04:00 WBC RBC Hgb Hct MCV MCH MCHC RDW Plt Count Lymph % (Auto) [place] % (Auto) Lymph # [place] # Baso # Seg Neutrophils % Seg Neuts % (Manual) Lymphocytes % (Manual) Monocytes % (Manual) Eosinophils % (Manual) Basophils % (Manual) Nucleated RBC % Seg Neutrophils # Seg Neutrophils # Man Lymphocytes # (Manual) Monocytes # (Manual) Eosinophils # (Manual) Basophils # (Manual) PT INR 1.18 H Fibrinogen dRVVT Confirm Interp Factor V Activity POC ABG pH POC ABG pCO2 POC ABG pO2 ABG pO2 ABG HCO3 ABG Base Excess ABG Hemoglobin Oxyhemoglobin Sodium 136 L 133 L Potassium Chloride 96.1 L 94.8 L Carbon Dioxide 21 L BUN 37 H 42 H Creatinine 1.8 H 2.0 H Glucose POC Glucose Lactic Acid Calcium Ionized Calcium Phosphorus Magnesium Direct Bilirubin AST ALT Alkaline Phosphatase Lactate Dehydrogenase Troponin T C-Reactive Protein Total Protein Albumin Prealbumin Triglycerides Cholesterol LDL Cholesterol Direct HDL Cholesterol 25-OH Vitamin D Total PTH Intact Urine pH Urine WBC (Auto) Urine Creatinine Urine Total Protein Fluid Total Protein Vancomycin Trough Rheumatoid Factor Complement C4 Miscellaneous Test Crossmatch 11/12/16 11/12/16 11/13/16 04:00 23:55 05:53 WBC RBC Hgb 8.9 L Hct 27.2 L MCV MCH MCHC RDW Plt Count Lymph % (Auto) [place] % (Auto) Lymph # [place] # Baso # Seg Neutrophils % Seg Neuts % (Manual) Lymphocytes % (Manual) Monocytes % (Manual) Eosinophils % (Manual) Basophils % (Manual) Nucleated RBC % Seg Neutrophils # Seg Neutrophils # Man Lymphocytes # (Manual) Monocytes # (Manual) Eosinophils # (Manual) Basophils # (Manual) PT INR Fibrinogen dRVVT Confirm Interp Factor V Activity POC ABG pH POC ABG pCO2 POC ABG pO2 ABG pO2 ABG HCO3 ABG Base Excess ABG Hemoglobin Oxyhemoglobin Sodium Potassium Chloride Carbon Dioxide BUN Creatinine Glucose POC Glucose 132 H 120 H Lactic Acid Calcium Ionized Calcium Phosphorus Magnesium Direct Bilirubin AST ALT Alkaline Phosphatase Lactate Dehydrogenase Troponin T C-Reactive Protein Total Protein Albumin Prealbumin Triglycerides Cholesterol LDL Cholesterol Direct HDL Cholesterol 25-OH Vitamin D Total PTH Intact Urine pH Urine WBC (Auto) Urine Creatinine Urine Total Protein Fluid Total Protein Vancomycin Trough Rheumatoid Factor Complement C4 Miscellaneous Test Crossmatch 11/13/16 11/13/16 11/13/16 11:43 17:09 23:41 WBC RBC Hgb Hct MCV MCH MCHC RDW Plt Count Lymph % (Auto) [place] % (Auto) Lymph # [place] # Baso # Seg Neutrophils % Seg Neuts % (Manual) Lymphocytes % (Manual) Monocytes % (Manual) Eosinophils % (Manual) Basophils % (Manual) Nucleated RBC % Seg Neutrophils # Seg Neutrophils # Man Lymphocytes # (Manual) Monocytes # (Manual) Eosinophils # (Manual) Basophils # (Manual) PT INR Fibrinogen dRVVT Confirm Interp Factor V Activity POC ABG pH POC ABG pCO2 POC ABG pO2 ABG pO2 ABG HCO3 ABG Base Excess ABG Hemoglobin Oxyhemoglobin Sodium Potassium Chloride Carbon Dioxide BUN Creatinine Glucose POC Glucose 114 H 113 H 108 H Lactic Acid Calcium Ionized Calcium Phosphorus Magnesium Direct Bilirubin AST ALT Alkaline Phosphatase Lactate Dehydrogenase Troponin T C-Reactive Protein Total Protein Albumin Prealbumin Triglycerides Cholesterol LDL Cholesterol Direct HDL Cholesterol 25-OH Vitamin D Total PTH Intact Urine pH Urine WBC (Auto) Urine Creatinine Urine Total Protein Fluid Total Protein Vancomycin Trough Rheumatoid Factor Complement C4 Miscellaneous Test Crossmatch 11/13/16 11/15/16 11/15/16 Unknown 00:37 03:30 WBC 11.2 H RBC 2.72 L Hgb 7.6 L Hct 23.4 L MCV MCH MCHC RDW 16.5 H Plt Count Lymph % (Auto) [place] % (Auto) Lymph # [place] # Baso # Seg Neutrophils % Seg Neuts % (Manual) Lymphocytes % (Manual) Monocytes % (Manual) Eosinophils % (Manual) Basophils % (Manual) Nucleated RBC % Seg Neutrophils # Seg Neutrophils # Man Lymphocytes # (Manual) Monocytes # (Manual) Eosinophils # (Manual) Basophils # (Manual) PT INR Fibrinogen dRVVT Confirm Interp Factor V Activity POC ABG pH POC ABG pCO2 POC ABG pO2 ABG pO2 ABG HCO3 ABG Base Excess ABG Hemoglobin Oxyhemoglobin Sodium 135 L Potassium Chloride 95.2 L Carbon Dioxide BUN 52 H Creatinine 2.2 H Glucose POC Glucose 108 H Lactic Acid Calcium Ionized Calcium Phosphorus Magnesium Direct Bilirubin AST ALT Alkaline Phosphatase Lactate Dehydrogenase Troponin T C-Reactive Protein Total Protein Albumin Prealbumin Triglycerides Cholesterol LDL Cholesterol Direct HDL Cholesterol 25-OH Vitamin D Total PTH Intact Urine pH Urine WBC (Auto) Urine Creatinine Urine Total Protein Fluid Total Protein Vancomycin Trough Rheumatoid Factor Complement C4 Miscellaneous Test Crossmatch 11/15/16 11/15/16 11/15/16 03:30 05:04 11:50 WBC RBC Hgb Hct MCV MCH MCHC RDW Plt Count Lymph % (Auto) [place] % (Auto) Lymph # [place] # Baso # Seg Neutrophils % Seg Neuts % (Manual) Lymphocytes % (Manual) Monocytes % (Manual) Eosinophils % (Manual) Basophils % (Manual) Nucleated RBC % Seg Neutrophils # Seg Neutrophils # Man Lymphocytes # (Manual) Monocytes # (Manual) Eosinophils # (Manual) Basophils # (Manual) PT INR Fibrinogen dRVVT Confirm Interp Factor V Activity POC ABG pH POC ABG pCO2 POC ABG pO2 ABG pO2 ABG HCO3 ABG Base Excess ABG Hemoglobin Oxyhemoglobin Sodium Potassium 3.4 L Chloride Carbon Dioxide BUN 25 H Creatinine 1.5 H Glucose 103 H POC Glucose 121 H 144 H Lactic Acid Calcium Ionized Calcium Phosphorus Magnesium Direct Bilirubin AST ALT Alkaline Phosphatase Lactate Dehydrogenase Troponin T C-Reactive Protein Total Protein Albumin Prealbumin Triglycerides Cholesterol LDL Cholesterol Direct HDL Cholesterol 25-OH Vitamin D Total PTH Intact Urine pH Urine WBC (Auto) Urine Creatinine Urine Total Protein Fluid Total Protein Vancomycin Trough Rheumatoid Factor Complement C4 Miscellaneous Test Crossmatch 11/15/16 11/15/16 11/16/16 21:28 23:20 11:44 WBC RBC Hgb Hct MCV MCH MCHC RDW Plt Count Lymph % (Auto) [place] % (Auto) Lymph # [place] # Baso # Seg Neutrophils % Seg Neuts % (Manual) Lymphocytes % (Manual) Monocytes % (Manual) Eosinophils % (Manual) Basophils % (Manual) Nucleated RBC % Seg Neutrophils # Seg Neutrophils # Man Lymphocytes # (Manual) Monocytes # (Manual) Eosinophils # (Manual) Basophils # (Manual) PT INR Fibrinogen dRVVT Confirm Interp Factor V Activity POC ABG pH 7.462 H POC ABG pCO2 POC ABG pO2 71 L ABG pO2 ABG HCO3 ABG Base Excess ABG Hemoglobin Oxyhemoglobin Sodium Potassium Chloride Carbon Dioxide BUN Creatinine Glucose POC Glucose 116 H 133 H Lactic Acid Calcium Ionized Calcium Phosphorus Magnesium Direct Bilirubin AST ALT Alkaline Phosphatase Lactate Dehydrogenase Troponin T C-Reactive Protein Total Protein Albumin Prealbumin Triglycerides Cholesterol LDL Cholesterol Direct HDL Cholesterol 25-OH Vitamin D Total PTH Intact Urine pH Urine WBC (Auto) Urine Creatinine Urine Total Protein Fluid Total Protein Vancomycin Trough Rheumatoid Factor Complement C4 Miscellaneous Test Crossmatch 11/16/16 11/16/16 11/16/16 12:20 17:05 23:35 WBC 11.7 H RBC 2.73 L Hgb 7.6 L Hct 23.7 L MCV MCH MCHC RDW 16.6 H Plt Count Lymph % (Auto) [place] % (Auto) Lymph # [place] # Baso # Seg Neutrophils % Seg Neuts % (Manual) Lymphocytes % (Manual) Monocytes % (Manual) Eosinophils % (Manual) Basophils % (Manual) Nucleated RBC % Seg Neutrophils # Seg Neutrophils # Man Lymphocytes # (Manual) Monocytes # (Manual) Eosinophils # (Manual) Basophils # (Manual) PT INR Fibrinogen dRVVT Confirm Interp Factor V Activity POC ABG pH POC ABG pCO2 POC ABG pO2 ABG pO2 ABG HCO3 ABG Base Excess ABG Hemoglobin Oxyhemoglobin Sodium Potassium Chloride Carbon Dioxide BUN Creatinine Glucose POC Glucose 154 H 125 H Lactic Acid Calcium Ionized Calcium Phosphorus Magnesium Direct Bilirubin AST ALT Alkaline Phosphatase Lactate Dehydrogenase Troponin T C-Reactive Protein Total Protein Albumin Prealbumin Triglycerides Cholesterol LDL Cholesterol Direct HDL Cholesterol 25-OH Vitamin D Total PTH Intact Urine pH Urine WBC (Auto) Urine Creatinine Urine Total Protein Fluid Total Protein Vancomycin Trough Rheumatoid Factor Complement C4 Miscellaneous Test Crossmatch 11/17/16 11/17/16 11/17/16 03:20 03:20 03:20 WBC RBC 2.55 L Hgb 7.3 L Hct 21.9 L MCV MCH MCHC RDW 16.6 H Plt Count Lymph % (Auto) [place] % (Auto) 11.5 H Lymph # [place] # 1.1 H Baso # Seg Neutrophils % Seg Neuts % (Manual) Lymphocytes % (Manual) Monocytes % (Manual) Eosinophils % (Manual) Basophils % (Manual) Nucleated RBC % Seg Neutrophils # Seg Neutrophils # Man Lymphocytes # (Manual) Monocytes # (Manual) Eosinophils # (Manual) Basophils # (Manual) PT 16.8 H INR 1.37 H Fibrinogen dRVVT Confirm Interp Factor V Activity POC ABG pH POC ABG pCO2 POC ABG pO2 ABG pO2 ABG HCO3 ABG Base Excess ABG Hemoglobin Oxyhemoglobin Sodium Potassium 3.5 L Chloride Carbon Dioxide BUN 21 H Creatinine Glucose POC Glucose Lactic Acid Calcium 7.9 L Ionized Calcium Phosphorus Magnesium Direct Bilirubin AST ALT Alkaline Phosphatase Lactate Dehydrogenase Troponin T C-Reactive Protein Total Protein Albumin Prealbumin Triglycerides Cholesterol LDL Cholesterol Direct HDL Cholesterol 25-OH Vitamin D Total PTH Intact Urine pH Urine WBC (Auto) Urine Creatinine Urine Total Protein Fluid Total Protein Vancomycin Trough Rheumatoid Factor Complement C4 Miscellaneous Test Crossmatch 11/17/16 11/17/16 11/17/16 06:34 11:21 21:22 WBC RBC Hgb Hct MCV MCH MCHC RDW Plt Count Lymph % (Auto) [place] % (Auto) Lymph # [place] # Baso # Seg Neutrophils % Seg Neuts % (Manual) Lymphocytes % (Manual) Monocytes % (Manual) Eosinophils % (Manual) Basophils % (Manual) Nucleated RBC % Seg Neutrophils # Seg Neutrophils # Man Lymphocytes # (Manual) Monocytes # (Manual) Eosinophils # (Manual) Basophils # (Manual) PT INR Fibrinogen dRVVT Confirm Interp Factor V Activity POC ABG pH 7.467 H POC ABG pCO2 POC ABG pO2 73 L ABG pO2 ABG HCO3 ABG Base Excess ABG Hemoglobin Oxyhemoglobin Sodium Potassium Chloride Carbon Dioxide BUN Creatinine Glucose POC Glucose 121 H 119 H Lactic Acid Calcium Ionized Calcium Phosphorus Magnesium Direct Bilirubin AST ALT Alkaline Phosphatase Lactate Dehydrogenase Troponin T C-Reactive Protein Total Protein Albumin Prealbumin Triglycerides Cholesterol LDL Cholesterol Direct HDL Cholesterol 25-OH Vitamin D Total PTH Intact Urine pH Urine WBC (Auto) Urine Creatinine Urine Total Protein Fluid Total Protein Vancomycin Trough Rheumatoid Factor Complement C4 Miscellaneous Test Crossmatch 11/18/16 11/18/16 11/19/16 12:16 17:19 00:00 WBC RBC Hgb Hct MCV MCH MCHC RDW Plt Count Lymph % (Auto) [place] % (Auto) Lymph # [place] # Baso # Seg Neutrophils % Seg Neuts % (Manual) Lymphocytes % (Manual) Monocytes % (Manual) Eosinophils % (Manual) Basophils % (Manual) Nucleated RBC % Seg Neutrophils # Seg Neutrophils # Man Lymphocytes # (Manual) Monocytes # (Manual) Eosinophils # (Manual) Basophils # (Manual) PT INR Fibrinogen dRVVT Confirm Interp Factor V Activity POC ABG pH POC ABG pCO2 POC ABG pO2 ABG pO2 ABG HCO3 ABG Base Excess ABG Hemoglobin Oxyhemoglobin Sodium Potassium Chloride Carbon Dioxide BUN Creatinine Glucose POC Glucose 124 H 162 H 139 H Lactic Acid Calcium Ionized Calcium Phosphorus Magnesium Direct Bilirubin AST ALT Alkaline Phosphatase Lactate Dehydrogenase Troponin T C-Reactive Protein Total Protein Albumin Prealbumin Triglycerides Cholesterol LDL Cholesterol Direct HDL Cholesterol 25-OH Vitamin D Total PTH Intact Urine pH Urine WBC (Auto) Urine Creatinine Urine Total Protein Fluid Total Protein Vancomycin Trough Rheumatoid Factor Complement C4 Miscellaneous Test Crossmatch 11/19/16 11/19/16 11/20/16 05:00 12:43 00:40 WBC RBC Hgb Hct MCV MCH MCHC RDW Plt Count Lymph % (Auto) [place] % (Auto) Lymph # [place] # Baso # Seg Neutrophils % Seg Neuts % (Manual) Lymphocytes % (Manual) Monocytes % (Manual) Eosinophils % (Manual) Basophils % (Manual) Nucleated RBC % Seg Neutrophils # Seg Neutrophils # Man Lymphocytes # (Manual) Monocytes # (Manual) Eosinophils # (Manual) Basophils # (Manual) PT INR Fibrinogen dRVVT Confirm Interp Factor V Activity POC ABG pH POC ABG pCO2 POC ABG pO2 ABG pO2 ABG HCO3 ABG Base Excess ABG Hemoglobin Oxyhemoglobin Sodium Potassium Chloride Carbon Dioxide BUN Creatinine Glucose POC Glucose 110 H 125 H 136 H Lactic Acid Calcium Ionized Calcium Phosphorus Magnesium Direct Bilirubin AST ALT Alkaline Phosphatase Lactate Dehydrogenase Troponin T C-Reactive Protein Total Protein Albumin Prealbumin Triglycerides Cholesterol LDL Cholesterol Direct HDL Cholesterol 25-OH Vitamin D Total PTH Intact Urine pH Urine WBC (Auto) Urine Creatinine Urine Total Protein Fluid Total Protein Vancomycin Trough Rheumatoid Factor Complement C4 Miscellaneous Test Crossmatch 10/03/0811/20/16 11/20/16 05:00 05:00 05:51 WBC 13.1 H RBC 2.74 L Hgb 7.7 L Hct 23.6 L MCV MCH MCHC RDW 16.9 H Plt Count Lymph % (Auto) [place] % (Auto) 10.8 H Lymph # [place] # 1.4 H Baso # Seg Neutrophils % Seg Neuts % (Manual) Lymphocytes % (Manual) Monocytes % (Manual) Eosinophils % (Manual) Basophils % (Manual) Nucleated RBC % Seg Neutrophils # 7.9 H Seg Neutrophils # Man Lymphocytes # (Manual) Monocytes # (Manual) Eosinophils # (Manual) Basophils # (Manual) PT INR Fibrinogen dRVVT Confirm Interp Factor V Activity POC ABG pH POC ABG pCO2 POC ABG pO2 ABG pO2 ABG HCO3 ABG Base Excess ABG Hemoglobin Oxyhemoglobin Sodium Potassium Chloride Carbon Dioxide BUN 31 H Creatinine 1.8 H Glucose 129 H POC Glucose 133 H Lactic Acid Calcium Ionized Calcium Phosphorus Magnesium Direct Bilirubin AST ALT Alkaline Phosphatase Lactate Dehydrogenase Troponin T C-Reactive Protein Total Protein Albumin Prealbumin Triglycerides Cholesterol LDL Cholesterol Direct HDL Cholesterol 25-OH Vitamin D Total PTH Intact Urine pH Urine WBC (Auto) Urine Creatinine Urine Total Protein Fluid Total Protein Vancomycin Trough Rheumatoid Factor Complement C4 Miscellaneous Test Crossmatch 11/20/16 11/20/16 11/21/16 12:40 18:10 01:20 WBC RBC Hgb Hct MCV MCH MCHC RDW Plt Count Lymph % (Auto) [place] % (Auto) Lymph # [place] # Baso # Seg Neutrophils % Seg Neuts % (Manual) Lymphocytes % (Manual) Monocytes % (Manual) Eosinophils % (Manual) Basophils % (Manual) Nucleated RBC % Seg Neutrophils # Seg Neutrophils # Man Lymphocytes # (Manual) Monocytes # (Manual) Eosinophils # (Manual) Basophils # (Manual) PT INR Fibrinogen dRVVT Confirm Interp Factor V Activity POC ABG pH POC ABG pCO2 POC ABG pO2 ABG pO2 ABG HCO3 ABG Base Excess ABG Hemoglobin Oxyhemoglobin Sodium Potassium Chloride Carbon Dioxide BUN Creatinine Glucose POC Glucose 134 H 138 H 136 H Lactic Acid Calcium Ionized Calcium Phosphorus Magnesium Direct Bilirubin AST ALT Alkaline Phosphatase Lactate Dehydrogenase Troponin T C-Reactive Protein Total Protein Albumin Prealbumin Triglycerides Cholesterol LDL Cholesterol Direct HDL Cholesterol 25-OH Vitamin D Total PTH Intact Urine pH Urine WBC (Auto) Urine Creatinine Urine Total Protein Fluid Total Protein Vancomycin Trough Rheumatoid Factor Complement C4 Miscellaneous Test Crossmatch 11/21/16 11/21/16 11/21/16 07:04 07:45 07:45 WBC 22.0 H RBC 2.91 L Hgb 8.2 L Hct 25.4 L MCV MCH MCHC RDW 17.1 H Plt Count Lymph % (Auto) [place] % (Auto) Lymph # [place] # Baso # Seg Neutrophils % Seg Neuts % (Manual) Lymphocytes % (Manual) 8.0 L Monocytes % (Manual) Eosinophils % (Manual) Basophils % (Manual) Nucleated RBC % Seg Neutrophils # Seg Neutrophils # Man 14.7 H Lymphocytes # (Manual) Monocytes # (Manual) 1.1 H Eosinophils # (Manual) Basophils # (Manual) PT INR Fibrinogen dRVVT Confirm Interp Factor V Activity POC ABG pH POC ABG pCO2 POC ABG pO2 ABG pO2 ABG HCO3 ABG Base Excess ABG Hemoglobin Oxyhemoglobin Sodium Potassium Chloride Carbon Dioxide BUN 42 H Creatinine 2.0 H Glucose POC Glucose 108 H Lactic Acid Calcium Ionized Calcium Phosphorus Magnesium Direct Bilirubin AST ALT Alkaline Phosphatase Lactate Dehydrogenase Troponin T C-Reactive Protein Total Protein Albumin Prealbumin Triglycerides Cholesterol LDL Cholesterol Direct HDL Cholesterol 25-OH Vitamin D Total PTH Intact Urine pH Urine WBC (Auto) Urine Creatinine Urine Total Protein Fluid Total Protein Vancomycin Trough Rheumatoid Factor Complement C4 Miscellaneous Test Crossmatch 11/21/16 11/21/16 11/21/16 08:38 10:09 11:20 WBC RBC Hgb Hct MCV MCH MCHC RDW Plt Count Lymph % (Auto) [place] % (Auto) Lymph # [place] # Baso # Seg Neutrophils % Seg Neuts % (Manual) Lymphocytes % (Manual) Monocytes % (Manual) Eosinophils % (Manual) Basophils % (Manual) Nucleated RBC % Seg Neutrophils # Seg Neutrophils # Man Lymphocytes # (Manual) Monocytes # (Manual) Eosinophils # (Manual) Basophils # (Manual) PT INR Fibrinogen dRVVT Confirm Interp Factor V Activity POC ABG pH 7.346 L POC ABG pCO2 34.4 L POC ABG pO2 314 H ABG pO2 ABG HCO3 ABG Base Excess ABG Hemoglobin Oxyhemoglobin Sodium Potassium Chloride Carbon Dioxide BUN Creatinine Glucose POC Glucose 195 H 153 H Lactic Acid Calcium Ionized Calcium Phosphorus Magnesium Direct Bilirubin AST ALT Alkaline Phosphatase Lactate Dehydrogenase Troponin T C-Reactive Protein Total Protein Albumin Prealbumin Triglycerides Cholesterol LDL Cholesterol Direct HDL Cholesterol 25-OH Vitamin D Total PTH Intact Urine pH Urine WBC (Auto) Urine Creatinine Urine Total Protein Fluid Total Protein Vancomycin Trough Rheumatoid Factor Complement C4 Miscellaneous Test Crossmatch 11/21/16 11/22/16 11/22/16 23:37 04:48 05:00 WBC 29.7 H RBC 2.73 L Hgb 7.5 L Hct 24.2 L MCV MCH 27 L MCHC RDW 17.4 H Plt Count Lymph % (Auto) [place] % (Auto) Lymph # [place] # Baso # Seg Neutrophils % Seg Neuts % (Manual) Lymphocytes % (Manual) 7.0 L Monocytes % (Manual) Eosinophils % (Manual) Basophils % (Manual) Nucleated RBC % Seg Neutrophils # Seg Neutrophils # Man 15.4 H Lymphocytes # (Manual) Monocytes # (Manual) Eosinophils # (Manual) Basophils # (Manual) PT INR Fibrinogen dRVVT Confirm Interp Factor V Activity POC ABG pH POC ABG pCO2 24.6 L POC ABG pO2 189 H ABG pO2 ABG HCO3 ABG Base Excess ABG Hemoglobin Oxyhemoglobin Sodium Potassium Chloride Carbon Dioxide BUN Creatinine Glucose POC Glucose 65 L Lactic Acid Calcium Ionized Calcium Phosphorus Magnesium Direct Bilirubin AST ALT Alkaline Phosphatase Lactate Dehydrogenase Troponin T C-Reactive Protein Total Protein Albumin Prealbumin Triglycerides Cholesterol LDL Cholesterol Direct HDL Cholesterol 25-OH Vitamin D Total PTH Intact Urine pH Urine WBC (Auto) Urine Creatinine Urine Total Protein Fluid Total Protein Vancomycin Trough Rheumatoid Factor Complement C4 Miscellaneous Test Crossmatch 11/22/16 11/23/16 11/23/16 05:00 03:44 04:06 WBC RBC 2.52 L Hgb 7.2 L Hct 21.5 L MCV MCH MCHC RDW 17.1 H Plt Count Lymph % (Auto) [place] % (Auto) 12.4 H Lymph # [place] # 1.4 H Baso # Seg Neutrophils % Seg Neuts % (Manual) Lymphocytes % (Manual) Monocytes % (Manual) Eosinophils % (Manual) Basophils % (Manual) Nucleated RBC % Seg Neutrophils # Seg Neutrophils # Man Lymphocytes # (Manual) Monocytes # (Manual) Eosinophils # (Manual) Basophils # (Manual) PT INR Fibrinogen dRVVT Confirm Interp Factor V Activity POC ABG pH 7.493 H POC ABG pCO2 29.5 L POC ABG pO2 49 L ABG pO2 ABG HCO3 ABG Base Excess ABG Hemoglobin Oxyhemoglobin Sodium 134 L Potassium Chloride 95.9 L Carbon Dioxide 14 L D BUN 51 H Creatinine 2.6 H Glucose POC Glucose Lactic Acid Calcium Ionized Calcium Phosphorus Magnesium Direct Bilirubin AST ALT Alkaline Phosphatase Lactate Dehydrogenase Troponin T C-Reactive Protein Total Protein Albumin Prealbumin Triglycerides Cholesterol LDL Cholesterol Direct HDL Cholesterol 25-OH Vitamin D Total PTH Intact Urine pH Urine WBC (Auto) Urine Creatinine Urine Total Protein Fluid Total Protein Vancomycin Trough Rheumatoid Factor Complement C4 Miscellaneous Test Crossmatch 11/23/16 11/23/16 11/24/16 04:06 11:29 06:39 WBC RBC Hgb Hct MCV MCH MCHC RDW Plt Count Lymph % (Auto) [place] % (Auto) Lymph # [place] # Baso # Seg Neutrophils % Seg Neuts % (Manual) Lymphocytes % (Manual) Monocytes % (Manual) Eosinophils % (Manual) Basophils % (Manual) Nucleated RBC % Seg Neutrophils # Seg Neutrophils # Man Lymphocytes # (Manual) Monocytes # (Manual) Eosinophils # (Manual) Basophils # (Manual) PT INR Fibrinogen dRVVT Confirm Interp Factor V Activity POC ABG pH POC ABG pCO2 POC ABG pO2 ABG pO2 ABG HCO3 ABG Base Excess ABG Hemoglobin Oxyhemoglobin Sodium 136 L Potassium Chloride 95.2 L Carbon Dioxide BUN 60 H Creatinine 2.9 H Glucose POC Glucose 69 L 305 H Lactic Acid Calcium Ionized Calcium Phosphorus Magnesium 1.60 L Direct Bilirubin AST ALT Alkaline Phosphatase Lactate Dehydrogenase Troponin T C-Reactive Protein Total Protein Albumin Prealbumin Triglycerides Cholesterol LDL Cholesterol Direct HDL Cholesterol 25-OH Vitamin D Total PTH Intact Urine pH Urine WBC (Auto) Urine Creatinine Urine Total Protein Fluid Total Protein Vancomycin Trough Rheumatoid Factor Complement C4 Miscellaneous Test Crossmatch 11/24/16 11/24/16 11/24/16 06:43 08:08 08:08 WBC 11.2 H RBC 2.47 L Hgb 6.8 L Hct 20.6 L MCV MCH MCHC RDW 17.0 H Plt Count Lymph % (Auto) [place] % (Auto) 10.3 H Lymph # [place] # 1.2 H Baso # Seg Neutrophils % Seg Neuts % (Manual) Lymphocytes % (Manual) Monocytes % (Manual) Eosinophils % (Manual) Basophils % (Manual) Nucleated RBC % Seg Neutrophils # Seg Neutrophils # Man Lymphocytes # (Manual) Monocytes # (Manual) Eosinophils # (Manual) Basophils # (Manual) PT INR Fibrinogen dRVVT Confirm Interp Factor V Activity POC ABG pH POC ABG pCO2 POC ABG pO2 ABG pO2 ABG HCO3 ABG Base Excess ABG Hemoglobin Oxyhemoglobin Sodium 135 L Potassium Chloride 96.3 L Carbon Dioxide BUN 61 H Creatinine 3.1 H Glucose POC Glucose 62 L Lactic Acid Calcium 8.2 L Ionized Calcium Phosphorus Magnesium Direct Bilirubin AST ALT Alkaline Phosphatase Lactate Dehydrogenase Troponin T C-Reactive Protein Total Protein Albumin Prealbumin Triglycerides Cholesterol LDL Cholesterol Direct HDL Cholesterol 25-OH Vitamin D Total PTH Intact Urine pH Urine WBC (Auto) Urine Creatinine Urine Total Protein Fluid Total Protein Vancomycin Trough Rheumatoid Factor Complement C4 Miscellaneous Test Crossmatch 11/24/16 11/24/16 11/24/16 08:34 11:20 12:41 WBC RBC Hgb Hct MCV MCH MCHC RDW Plt Count Lymph % (Auto) [place] % (Auto) Lymph # [place] # Baso # Seg Neutrophils % Seg Neuts % (Manual) Lymphocytes % (Manual) Monocytes % (Manual) Eosinophils % (Manual) Basophils % (Manual) Nucleated RBC % Seg Neutrophils # Seg Neutrophils # Man Lymphocytes # (Manual) Monocytes # (Manual) Eosinophils # (Manual) Basophils # (Manual) PT INR Fibrinogen dRVVT Confirm Interp Factor V Activity POC ABG pH POC ABG pCO2 POC ABG pO2 ABG pO2 ABG HCO3 ABG Base Excess ABG Hemoglobin Oxyhemoglobin Sodium Potassium Chloride Carbon Dioxide BUN Creatinine Glucose POC Glucose 108 H Lactic Acid Calcium Ionized Calcium Phosphorus Magnesium 1.60 L Direct Bilirubin AST ALT Alkaline Phosphatase Lactate Dehydrogenase Troponin T C-Reactive Protein Total Protein Albumin Prealbumin Triglycerides Cholesterol LDL Cholesterol Direct HDL Cholesterol 25-OH Vitamin D Total PTH Intact Urine pH Urine WBC (Auto) Urine Creatinine Urine Total Protein Fluid Total Protein Vancomycin Trough Rheumatoid Factor Complement C4 Miscellaneous Test Crossmatch See Detail 11/25/16 11/25/16 11/25/16 00:03 04:42 04:42 WBC RBC 3.03 L Hgb 8.6 L Hct 25.3 L MCV MCH MCHC RDW 16.2 H Plt Count Lymph % (Auto) [place] % (Auto) 8.1 H Lymph # [place] # Baso # Seg Neutrophils % 71.3 H Seg Neuts % (Manual) Lymphocytes % (Manual) Monocytes % (Manual) Eosinophils % (Manual) Basophils % (Manual) Nucleated RBC % Seg Neutrophils # Seg Neutrophils # Man Lymphocytes # (Manual) Monocytes # (Manual) Eosinophils # (Manual) Basophils # (Manual) PT INR Fibrinogen dRVVT Confirm Interp Factor V Activity POC ABG pH POC ABG pCO2 POC ABG pO2 ABG pO2 ABG HCO3 ABG Base Excess ABG Hemoglobin Oxyhemoglobin Sodium Potassium Chloride Carbon Dioxide BUN 61 H Creatinine 3.0 H Glucose 102 H POC Glucose 113 H Lactic Acid Calcium 8.2 L Ionized Calcium Phosphorus Magnesium Direct Bilirubin AST ALT Alkaline Phosphatase 142 H Lactate Dehydrogenase Troponin T C-Reactive Protein Total Protein 5.7 L Albumin 1.5 L Prealbumin Triglycerides Cholesterol LDL Cholesterol Direct HDL Cholesterol 25-OH Vitamin D Total PTH Intact Urine pH Urine WBC (Auto) Urine Creatinine Urine Total Protein Fluid Total Protein Vancomycin Trough Rheumatoid Factor Complement C4 Miscellaneous Test Crossmatch 11/25/16 11/25/16 11/25/16 05:12 11:31 14:12 WBC RBC Hgb Hct MCV MCH MCHC RDW Plt Count Lymph % (Auto) [place] % (Auto) Lymph # [place] # Baso # Seg Neutrophils % Seg Neuts % (Manual) Lymphocytes % (Manual) Monocytes % (Manual) Eosinophils % (Manual) Basophils % (Manual) Nucleated RBC % Seg Neutrophils # Seg Neutrophils # Man Lymphocytes # (Manual) Monocytes # (Manual) Eosinophils # (Manual) Basophils # (Manual) PT INR Fibrinogen dRVVT Confirm Interp Factor V Activity POC ABG pH 7.487 H POC ABG pCO2 POC ABG pO2 153 H ABG pO2 ABG HCO3 ABG Base Excess ABG Hemoglobin Oxyhemoglobin Sodium Potassium Chloride Carbon Dioxide BUN Creatinine Glucose POC Glucose 131 H 140 H Lactic Acid Calcium Ionized Calcium Phosphorus Magnesium Direct Bilirubin AST ALT Alkaline Phosphatase Lactate Dehydrogenase Troponin T C-Reactive Protein Total Protein Albumin Prealbumin Triglycerides Cholesterol LDL Cholesterol Direct HDL Cholesterol 25-OH Vitamin D Total PTH Intact Urine pH Urine WBC (Auto) Urine Creatinine Urine Total Protein Fluid Total Protein Vancomycin Trough Rheumatoid Factor Complement C4 Miscellaneous Test Crossmatch 11/25/16 11/26/16 11/26/16 17:23 00:09 05:13 WBC RBC 2.94 L Hgb 8.4 L Hct 24.6 L MCV MCH MCHC RDW 16.4 H Plt Count Lymph % (Auto) [place] % (Auto) 12.3 H Lymph # [place] # 1.1 H Baso # Seg Neutrophils % Seg Neuts % (Manual) Lymphocytes % (Manual) Monocytes % (Manual) Eosinophils % (Manual) Basophils % (Manual) Nucleated RBC % Seg Neutrophils # Seg Neutrophils # Man Lymphocytes # (Manual) Monocytes # (Manual) Eosinophils # (Manual) Basophils # (Manual) PT INR Fibrinogen dRVVT Confirm Interp Factor V Activity POC ABG pH POC ABG pCO2 POC ABG pO2 ABG pO2 ABG HCO3 ABG Base Excess ABG Hemoglobin Oxyhemoglobin Sodium Potassium Chloride Carbon Dioxide BUN Creatinine Glucose POC Glucose 146 H 112 H Lactic Acid Calcium Ionized Calcium Phosphorus Magnesium Direct Bilirubin AST ALT Alkaline Phosphatase Lactate Dehydrogenase Troponin T C-Reactive Protein Total Protein Albumin Prealbumin Triglycerides Cholesterol LDL Cholesterol Direct HDL Cholesterol 25-OH Vitamin D Total PTH Intact Urine pH Urine WBC (Auto) Urine Creatinine Urine Total Protein Fluid Total Protein Vancomycin Trough Rheumatoid Factor Complement C4 Miscellaneous Test Crossmatch 11/26/16 11/26/16 11/26/16 05:13 05:28 11:53 WBC RBC Hgb Hct MCV MCH MCHC RDW Plt Count Lymph % (Auto) [place] % (Auto) Lymph # [place] # Baso # Seg Neutrophils % Seg Neuts % (Manual) Lymphocytes % (Manual) Monocytes % (Manual) Eosinophils % (Manual) Basophils % (Manual) Nucleated RBC % Seg Neutrophils # Seg Neutrophils # Man Lymphocytes # (Manual) Monocytes # (Manual) Eosinophils # (Manual) Basophils # (Manual) PT INR Fibrinogen dRVVT Confirm Interp Factor V Activity POC ABG pH POC ABG pCO2 POC ABG pO2 ABG pO2 ABG HCO3 ABG Base Excess ABG Hemoglobin Oxyhemoglobin Sodium Potassium Chloride 97.8 L Carbon Dioxide BUN 37 H Creatinine 2.0 H Glucose 109 H POC Glucose 117 H 111 H Lactic Acid Calcium 7.9 L Ionized Calcium Phosphorus 1.80 L D Magnesium Direct Bilirubin AST ALT Alkaline Phosphatase Lactate Dehydrogenase Troponin T C-Reactive Protein Total Protein Albumin Prealbumin Triglycerides Cholesterol LDL Cholesterol Direct HDL Cholesterol 25-OH Vitamin D Total PTH Intact Urine pH Urine WBC (Auto) Urine Creatinine Urine Total Protein Fluid Total Protein Vancomycin Trough Rheumatoid Factor Complement C4 Miscellaneous Test Crossmatch 11/26/16 11/27/16 11/27/16 17:14 04:50 06:02 WBC RBC Hgb Hct MCV MCH MCHC RDW Plt Count Lymph % (Auto) [place] % (Auto) Lymph # [place] # Baso # Seg Neutrophils % Seg Neuts % (Manual) Lymphocytes % (Manual) Monocytes % (Manual) Eosinophils % (Manual) Basophils % (Manual) Nucleated RBC % Seg Neutrophils # Seg Neutrophils # Man Lymphocytes # (Manual) Monocytes # (Manual) Eosinophils # (Manual) Basophils # (Manual) PT INR Fibrinogen dRVVT Confirm Interp Factor V Activity POC ABG pH POC ABG pCO2 POC ABG pO2 ABG pO2 75.2 L ABG HCO3 26.4 H ABG Base Excess ABG Hemoglobin 7.6 L Oxyhemoglobin 94.8 L Sodium Potassium Chloride Carbon Dioxide BUN 49 H Creatinine 2.3 H Glucose POC Glucose 115 H Lactic Acid Calcium Ionized Calcium Phosphorus 1.50 L Magnesium Direct Bilirubin AST ALT Alkaline Phosphatase Lactate Dehydrogenase Troponin T C-Reactive Protein Total Protein Albumin Prealbumin Triglycerides Cholesterol LDL Cholesterol Direct HDL Cholesterol 25-OH Vitamin D Total PTH Intact Urine pH Urine WBC (Auto) Urine Creatinine Urine Total Protein Fluid Total Protein Vancomycin Trough Rheumatoid Factor Complement C4 Miscellaneous Test Crossmatch 11/27/16 11/27/16 11/27/16 06:02 11:25 17:25 WBC 11.6 H RBC 2.75 L Hgb 7.6 L Hct 23.4 L MCV MCH MCHC RDW 16.5 H Plt Count Lymph % (Auto) [place] % (Auto) Lymph # [place] # Baso # Seg Neutrophils % Seg Neuts % (Manual) Lymphocytes % (Manual) Monocytes % (Manual) Eosinophils % (Manual) Basophils % (Manual) Nucleated RBC % Seg Neutrophils # Seg Neutrophils # Man Lymphocytes # (Manual) Monocytes # (Manual) Eosinophils # (Manual) Basophils # (Manual) PT INR Fibrinogen dRVVT Confirm Interp Factor V Activity POC ABG pH POC ABG pCO2 POC ABG pO2 ABG pO2 ABG HCO3 ABG Base Excess ABG Hemoglobin Oxyhemoglobin Sodium Potassium Chloride Carbon Dioxide BUN Creatinine Glucose POC Glucose 114 H 126 H Lactic Acid Calcium Ionized Calcium Phosphorus Magnesium Direct Bilirubin AST ALT Alkaline Phosphatase Lactate Dehydrogenase Troponin T C-Reactive Protein Total Protein Albumin Prealbumin Triglycerides Cholesterol LDL Cholesterol Direct HDL Cholesterol 25-OH Vitamin D Total PTH Intact Urine pH Urine WBC (Auto) Urine Creatinine Urine Total Protein Fluid Total Protein Vancomycin Trough Rheumatoid Factor Complement C4 Miscellaneous Test Crossmatch 11/28/16 11/28/16 11/28/16 04:45 05:33 05:44 WBC RBC Hgb Hct MCV MCH MCHC RDW Plt Count Lymph % (Auto) [place] % (Auto) Lymph # [place] # Baso # Seg Neutrophils % Seg Neuts % (Manual) Lymphocytes % (Manual) Monocytes % (Manual) Eosinophils % (Manual) Basophils % (Manual) Nucleated RBC % Seg Neutrophils # Seg Neutrophils # Man Lymphocytes # (Manual) Monocytes # (Manual) Eosinophils # (Manual) Basophils # (Manual) PT INR Fibrinogen dRVVT Confirm Interp Factor V Activity POC ABG pH POC ABG pCO2 POC ABG pO2 ABG pO2 99.3 H ABG HCO3 ABG Base Excess ABG Hemoglobin 8.3 L Oxyhemoglobin Sodium Potassium Chloride Carbon Dioxide BUN 63 H Creatinine 2.4 H Glucose 102 H POC Glucose 108 H Lactic Acid Calcium Ionized Calcium Phosphorus 1.80 L Magnesium Direct Bilirubin AST ALT Alkaline Phosphatase Lactate Dehydrogenase Troponin T C-Reactive Protein Total Protein Albumin Prealbumin Triglycerides Cholesterol LDL Cholesterol Direct HDL Cholesterol 25-OH Vitamin D Total PTH Intact Urine pH Urine WBC (Auto) Urine Creatinine Urine Total Protein Fluid Total Protein Vancomycin Trough Rheumatoid Factor Complement C4 Miscellaneous Test Crossmatch 11/28/16 11/28/16 11/28/16 12:31 16:09 23:46 WBC RBC Hgb Hct MCV MCH MCHC RDW Plt Count Lymph % (Auto) [place] % (Auto) Lymph # [place] # Baso # Seg Neutrophils % Seg Neuts % (Manual) Lymphocytes % (Manual) Monocytes % (Manual) Eosinophils % (Manual) Basophils % (Manual) Nucleated RBC % Seg Neutrophils # Seg Neutrophils # Man Lymphocytes # (Manual) Monocytes # (Manual) Eosinophils # (Manual) Basophils # (Manual) PT INR Fibrinogen dRVVT Confirm Interp Factor V Activity POC ABG pH POC ABG pCO2 POC ABG pO2 ABG pO2 ABG HCO3 ABG Base Excess ABG Hemoglobin Oxyhemoglobin Sodium Potassium Chloride Carbon Dioxide BUN Creatinine Glucose POC Glucose 126 H 111 H 119 H Lactic Acid Calcium Ionized Calcium Phosphorus Magnesium Direct Bilirubin AST ALT Alkaline Phosphatase Lactate Dehydrogenase Troponin T C-Reactive Protein Total Protein Albumin Prealbumin Triglycerides Cholesterol LDL Cholesterol Direct HDL Cholesterol 25-OH Vitamin D Total PTH Intact Urine pH Urine WBC (Auto) Urine Creatinine Urine Total Protein Fluid Total Protein Vancomycin Trough Rheumatoid Factor Complement C4 Miscellaneous Test Crossmatch 11/29/16 11/29/16 11/29/16 03:33 04:52 05:10 WBC RBC Hgb Hct MCV MCH MCHC RDW Plt Count Lymph % (Auto) [place] % (Auto) Lymph # [place] # Baso # Seg Neutrophils % Seg Neuts % (Manual) Lymphocytes % (Manual) Monocytes % (Manual) Eosinophils % (Manual) Basophils % (Manual) Nucleated RBC % Seg Neutrophils # Seg Neutrophils # Man Lymphocytes # (Manual) Monocytes # (Manual) Eosinophils # (Manual) Basophils # (Manual) PT INR Fibrinogen dRVVT Confirm Interp Factor V Activity POC ABG pH POC ABG pCO2 POC ABG pO2 ABG pO2 ABG HCO3 ABG Base Excess ABG Hemoglobin 7.0 L Oxyhemoglobin 94.9 L Sodium Potassium Chloride Carbon Dioxide BUN 73 H Creatinine 2.7 H Glucose POC Glucose 108 H Lactic Acid Calcium Ionized Calcium Phosphorus Magnesium Direct Bilirubin AST ALT Alkaline Phosphatase Lactate Dehydrogenase Troponin T C-Reactive Protein Total Protein Albumin Prealbumin Triglycerides Cholesterol LDL Cholesterol Direct HDL Cholesterol 25-OH Vitamin D Total PTH Intact Urine pH Urine WBC (Auto) Urine Creatinine Urine Total Protein Fluid Total Protein Vancomycin Trough Rheumatoid Factor Complement C4 Miscellaneous Test Crossmatch 11/29/16 11/29/16 11/29/16 12:16 18:05 23:46 WBC RBC Hgb Hct MCV MCH MCHC RDW Plt Count Lymph % (Auto) [place] % (Auto) Lymph # [place] # Baso # Seg Neutrophils % Seg Neuts % (Manual) Lymphocytes % (Manual) Monocytes % (Manual) Eosinophils % (Manual) Basophils % (Manual) Nucleated RBC % Seg Neutrophils # Seg Neutrophils # Man Lymphocytes # (Manual) Monocytes # (Manual) Eosinophils # (Manual) Basophils # (Manual) PT INR Fibrinogen dRVVT Confirm Interp Factor V Activity POC ABG pH POC ABG pCO2 POC ABG pO2 ABG pO2 ABG HCO3 ABG Base Excess ABG Hemoglobin Oxyhemoglobin Sodium Potassium Chloride Carbon Dioxide BUN Creatinine Glucose POC Glucose 133 H 146 H 141 H Lactic Acid Calcium Ionized Calcium Phosphorus Magnesium Direct Bilirubin AST ALT Alkaline Phosphatase Lactate Dehydrogenase Troponin T C-Reactive Protein Total Protein Albumin Prealbumin Triglycerides Cholesterol LDL Cholesterol Direct HDL Cholesterol 25-OH Vitamin D Total PTH Intact Urine pH Urine WBC (Auto) Urine Creatinine Urine Total Protein Fluid Total Protein Vancomycin Trough Rheumatoid Factor Complement C4 Miscellaneous Test Crossmatch 11/30/16 11/30/16 11/30/16 04:17 04:17 04:32 WBC 12.0 H RBC 2.80 L Hgb 7.8 L Hct 23.6 L MCV MCH MCHC RDW 16.6 H Plt Count Lymph % (Auto) [place] % (Auto) 11.3 H Lymph # [place] # 1.4 H Baso # Seg Neutrophils % Seg Neuts % (Manual) Lymphocytes % (Manual) Monocytes % (Manual) Eosinophils % (Manual) Basophils % (Manual) Nucleated RBC % Seg Neutrophils # 8.2 H Seg Neutrophils # Man Lymphocytes # (Manual) Monocytes # (Manual) Eosinophils # (Manual) Basophils # (Manual) PT INR Fibrinogen dRVVT Confirm Interp Factor V Activity POC ABG pH POC ABG pCO2 POC ABG pO2 ABG pO2 ABG HCO3 ABG Base Excess ABG Hemoglobin Oxyhemoglobin Sodium 169 H* D Potassium 5.1 H Chloride 121.5 H Carbon Dioxide BUN 34 H Creatinine 1.3 H D Glucose 133 H POC Glucose 131 H Lactic Acid Calcium 10.3 H Ionized Calcium Phosphorus Magnesium Direct Bilirubin AST ALT Alkaline Phosphatase Lactate Dehydrogenase Troponin T C-Reactive Protein Total Protein Albumin Prealbumin Triglycerides Cholesterol LDL Cholesterol Direct HDL Cholesterol 25-OH Vitamin D Total PTH Intact Urine pH Urine WBC (Auto) Urine Creatinine Urine Total Protein Fluid Total Protein Vancomycin Trough Rheumatoid Factor Complement C4 Miscellaneous Test Crossmatch 11/30/16 11/30/16 11/30/16 05:45 11:10 17:26 WBC RBC Hgb Hct MCV MCH MCHC RDW Plt Count Lymph % (Auto) [place] % (Auto) Lymph # [place] # Baso # Seg Neutrophils % Seg Neuts % (Manual) Lymphocytes % (Manual) Monocytes % (Manual) Eosinophils % (Manual) Basophils % (Manual) Nucleated RBC % Seg Neutrophils # Seg Neutrophils # Man Lymphocytes # (Manual) Monocytes # (Manual) Eosinophils # (Manual) Basophils # (Manual) PT INR Fibrinogen dRVVT Confirm Interp Factor V Activity POC ABG pH POC ABG pCO2 POC ABG pO2 ABG pO2 ABG HCO3 ABG Base Excess ABG Hemoglobin Oxyhemoglobin Sodium Potassium Chloride Carbon Dioxide BUN 45 H Creatinine 1.6 H Glucose 131 H POC Glucose 146 H 134 H Lactic Acid Calcium Ionized Calcium Phosphorus Magnesium Direct Bilirubin AST ALT Alkaline Phosphatase Lactate Dehydrogenase Troponin T C-Reactive Protein Total Protein Albumin Prealbumin Triglycerides Cholesterol LDL Cholesterol Direct HDL Cholesterol 25-OH Vitamin D Total PTH Intact Urine pH Urine WBC (Auto) Urine Creatinine Urine Total Protein Fluid Total Protein Vancomycin Trough Rheumatoid Factor Complement C4 Miscellaneous Test Crossmatch 11/30/16 12/01/16 12/01/16 23:35 00:06 03:35 WBC RBC Hgb Hct MCV MCH MCHC RDW Plt Count Lymph % (Auto) [place] % (Auto) Lymph # [place] # Baso # Seg Neutrophils % Seg Neuts % (Manual) Lymphocytes % (Manual) Monocytes % (Manual) Eosinophils % (Manual) Basophils % (Manual) Nucleated RBC % Seg Neutrophils # Seg Neutrophils # Man Lymphocytes # (Manual) Monocytes # (Manual) Eosinophils # (Manual) Basophils # (Manual) PT INR Fibrinogen dRVVT Confirm Interp Factor V Activity POC ABG pH POC ABG pCO2 POC ABG pO2 ABG pO2 ABG HCO3 ABG Base Excess ABG Hemoglobin 6.9 L Oxyhemoglobin Sodium Potassium Chloride Carbon Dioxide BUN 58 H Creatinine 1.8 H Glucose 146 H POC Glucose 151 H Lactic Acid Calcium Ionized Calcium Phosphorus Magnesium Direct Bilirubin AST ALT Alkaline Phosphatase Lactate Dehydrogenase Troponin T C-Reactive Protein Total Protein Albumin Prealbumin Triglycerides Cholesterol LDL Cholesterol Direct HDL Cholesterol 25-OH Vitamin D Total PTH Intact Urine pH Urine WBC (Auto) Urine Creatinine Urine Total Protein Fluid Total Protein Vancomycin Trough Rheumatoid Factor Complement C4 Miscellaneous Test Crossmatch 12/01/16 12/01/16 12/01/16 03:35 05:47 11:52 WBC 12.3 H RBC 2.82 L Hgb 7.8 L Hct 23.7 L MCV MCH MCHC RDW 16.7 H Plt Count Lymph % (Auto) [place] % (Auto) 9.8 H Lymph # [place] # 1.2 H Baso # Seg Neutrophils % Seg Neuts % (Manual) Lymphocytes % (Manual) Monocytes % (Manual) Eosinophils % (Manual) Basophils % (Manual) Nucleated RBC % Seg Neutrophils # 8.4 H Seg Neutrophils # Man Lymphocytes # (Manual) Monocytes # (Manual) Eosinophils # (Manual) Basophils # (Manual) PT INR Fibrinogen dRVVT Confirm Interp Factor V Activity POC ABG pH POC ABG pCO2 POC ABG pO2 ABG pO2 ABG HCO3 ABG Base Excess ABG Hemoglobin Oxyhemoglobin Sodium Potassium Chloride Carbon Dioxide BUN Creatinine Glucose POC Glucose 152 H 152 H Lactic Acid Calcium Ionized Calcium Phosphorus Magnesium Direct Bilirubin AST ALT Alkaline Phosphatase Lactate Dehydrogenase Troponin T C-Reactive Protein Total Protein Albumin Prealbumin Triglycerides Cholesterol LDL Cholesterol Direct HDL Cholesterol 25-OH Vitamin D Total PTH Intact Urine pH Urine WBC (Auto) Urine Creatinine Urine Total Protein Fluid Total Protein Vancomycin Trough Rheumatoid Factor Complement C4 Miscellaneous Test Crossmatch 12/01/16 12/01/16 12/02/16 17:40 23:41 05:00 WBC RBC Hgb Hct MCV MCH MCHC RDW Plt Count Lymph % (Auto) [place] % (Auto) Lymph # [place] # Baso # Seg Neutrophils % Seg Neuts % (Manual) Lymphocytes % (Manual) Monocytes % (Manual) Eosinophils % (Manual) Basophils % (Manual) Nucleated RBC % Seg Neutrophils # Seg Neutrophils # Man Lymphocytes # (Manual) Monocytes # (Manual) Eosinophils # (Manual) Basophils # (Manual) PT INR Fibrinogen dRVVT Confirm Interp Factor V Activity POC ABG pH POC ABG pCO2 POC ABG pO2 ABG pO2 ABG HCO3 ABG Base Excess ABG Hemoglobin Oxyhemoglobin Sodium Potassium Chloride Carbon Dioxide BUN 45 H Creatinine Glucose 115 H POC Glucose 140 H 144 H Lactic Acid Calcium Ionized Calcium Phosphorus Magnesium Direct Bilirubin AST ALT Alkaline Phosphatase Lactate Dehydrogenase Troponin T C-Reactive Protein Total Protein Albumin Prealbumin Triglycerides Cholesterol LDL Cholesterol Direct HDL Cholesterol 25-OH Vitamin D Total PTH Intact Urine pH Urine WBC (Auto) Urine Creatinine Urine Total Protein Fluid Total Protein Vancomycin Trough Rheumatoid Factor Complement C4 Miscellaneous Test Crossmatch 12/02/16 12/02/16 12/02/16 05:31 11:20 17:38 WBC RBC Hgb Hct MCV MCH MCHC RDW Plt Count Lymph % (Auto) [place] % (Auto) Lymph # [place] # Baso # Seg Neutrophils % Seg Neuts % (Manual) Lymphocytes % (Manual) Monocytes % (Manual) Eosinophils % (Manual) Basophils % (Manual) Nucleated RBC % Seg Neutrophils # Seg Neutrophils # Man Lymphocytes # (Manual) Monocytes # (Manual) Eosinophils # (Manual) Basophils # (Manual) PT INR Fibrinogen dRVVT Confirm Interp Factor V Activity POC ABG pH POC ABG pCO2 POC ABG pO2 ABG pO2 ABG HCO3 ABG Base Excess ABG Hemoglobin Oxyhemoglobin Sodium Potassium Chloride Carbon Dioxide BUN Creatinine Glucose POC Glucose 136 H 177 H 139 H Lactic Acid Calcium Ionized Calcium Phosphorus Magnesium Direct Bilirubin AST ALT Alkaline Phosphatase Lactate Dehydrogenase Troponin T C-Reactive Protein Total Protein Albumin Prealbumin Triglycerides Cholesterol LDL Cholesterol Direct HDL Cholesterol 25-OH Vitamin D Total PTH Intact Urine pH Urine WBC (Auto) Urine Creatinine Urine Total Protein Fluid Total Protein Vancomycin Trough Rheumatoid Factor Complement C4 Miscellaneous Test Crossmatch 12/02/16 12/03/16 12/03/16 23:43 04:00 04:00 WBC 20.4 H RBC 2.74 L Hgb 7.4 L Hct 23.6 L MCV MCH 27 L MCHC RDW 17.1 H Plt Count Lymph % (Auto) [place] % (Auto) Lymph # [place] # Baso # Seg Neutrophils % Seg Neuts % (Manual) 31.0 L Lymphocytes % (Manual) Monocytes % (Manual) Eosinophils % (Manual) Basophils % (Manual) Nucleated RBC % Seg Neutrophils # Seg Neutrophils # Man Lymphocytes # (Manual) Monocytes # (Manual) Eosinophils # (Manual) Basophils # (Manual) PT INR Fibrinogen dRVVT Confirm Interp Factor V Activity POC ABG pH POC ABG pCO2 POC ABG pO2 ABG pO2 ABG HCO3 ABG Base Excess ABG Hemoglobin Oxyhemoglobin Sodium Potassium Chloride Carbon Dioxide BUN 61 H Creatinine 1.6 H Glucose 119 H POC Glucose 158 H Lactic Acid Calcium Ionized Calcium Phosphorus Magnesium Direct Bilirubin AST ALT Alkaline Phosphatase Lactate Dehydrogenase Troponin T C-Reactive Protein Total Protein Albumin Prealbumin Triglycerides Cholesterol LDL Cholesterol Direct HDL Cholesterol 25-OH Vitamin D Total PTH Intact Urine pH Urine WBC (Auto) Urine Creatinine Urine Total Protein Fluid Total Protein Vancomycin Trough Rheumatoid Factor Complement C4 Miscellaneous Test Crossmatch 12/03/16 12/03/16 12/03/16 05:02 12:11 18:16 WBC RBC Hgb Hct MCV MCH MCHC RDW Plt Count Lymph % (Auto) [place] % (Auto) Lymph # [place] # Baso # Seg Neutrophils % Seg Neuts % (Manual) Lymphocytes % (Manual) Monocytes % (Manual) Eosinophils % (Manual) Basophils % (Manual) Nucleated RBC % Seg Neutrophils # Seg Neutrophils # Man Lymphocytes # (Manual) Monocytes # (Manual) Eosinophils # (Manual) Basophils # (Manual) PT INR Fibrinogen dRVVT Confirm Interp Factor V Activity POC ABG pH POC ABG pCO2 POC ABG pO2 ABG pO2 ABG HCO3 ABG Base Excess ABG Hemoglobin Oxyhemoglobin Sodium Potassium Chloride Carbon Dioxide BUN Creatinine Glucose POC Glucose 146 H 157 H 124 H Lactic Acid Calcium Ionized Calcium Phosphorus Magnesium Direct Bilirubin AST ALT Alkaline Phosphatase Lactate Dehydrogenase Troponin T C-Reactive Protein Total Protein Albumin Prealbumin Triglycerides Cholesterol LDL Cholesterol Direct HDL Cholesterol 25-OH Vitamin D Total PTH Intact Urine pH Urine WBC (Auto) Urine Creatinine Urine Total Protein Fluid Total Protein Vancomycin Trough Rheumatoid Factor Complement C4 Miscellaneous Test Crossmatch 12/03/16 12/04/16 12/04/16 23:41 04:00 04:45 WBC RBC Hgb Hct MCV MCH MCHC RDW Plt Count Lymph % (Auto) [place] % (Auto) Lymph # [place] # Baso # Seg Neutrophils % Seg Neuts % (Manual) Lymphocytes % (Manual) Monocytes % (Manual) Eosinophils % (Manual) Basophils % (Manual) Nucleated RBC % Seg Neutrophils # Seg Neutrophils # Man Lymphocytes # (Manual) Monocytes # (Manual) Eosinophils # (Manual) Basophils # (Manual) PT INR Fibrinogen dRVVT Confirm Interp Factor V Activity POC ABG pH POC ABG pCO2 POC ABG pO2 ABG pO2 ABG HCO3 ABG Base Excess ABG Hemoglobin Oxyhemoglobin Sodium Potassium Chloride Carbon Dioxide BUN 76 H Creatinine 1.6 H Glucose POC Glucose 130 H 136 H Lactic Acid Calcium Ionized Calcium Phosphorus Magnesium Direct Bilirubin AST ALT Alkaline Phosphatase 155 H Lactate Dehydrogenase Troponin T C-Reactive Protein Total Protein 5.5 L Albumin 1.5 L Prealbumin Triglycerides Cholesterol LDL Cholesterol Direct HDL Cholesterol 25-OH Vitamin D Total PTH Intact Urine pH Urine WBC (Auto) Urine Creatinine Urine Total Protein Fluid Total Protein Vancomycin Trough Rheumatoid Factor Complement C4 Miscellaneous Test Crossmatch 12/04/16 12/04/16 12/05/16 12:08 17:23 00:10 WBC RBC Hgb Hct MCV MCH MCHC RDW Plt Count Lymph % (Auto) [place] % (Auto) Lymph # [place] # Baso # Seg Neutrophils % Seg Neuts % (Manual) Lymphocytes % (Manual) Monocytes % (Manual) Eosinophils % (Manual) Basophils % (Manual) Nucleated RBC % Seg Neutrophils # Seg Neutrophils # Man Lymphocytes # (Manual) Monocytes # (Manual) Eosinophils # (Manual) Basophils # (Manual) PT INR Fibrinogen dRVVT Confirm Interp Factor V Activity POC ABG pH POC ABG pCO2 POC ABG pO2 ABG pO2 ABG HCO3 ABG Base Excess ABG Hemoglobin Oxyhemoglobin Sodium Potassium Chloride Carbon Dioxide BUN Creatinine Glucose POC Glucose 114 H 129 H 124 H Lactic Acid Calcium Ionized Calcium Phosphorus Magnesium Direct Bilirubin AST ALT Alkaline Phosphatase Lactate Dehydrogenase Troponin T C-Reactive Protein Total Protein Albumin Prealbumin Triglycerides Cholesterol LDL Cholesterol Direct HDL Cholesterol 25-OH Vitamin D Total PTH Intact Urine pH Urine WBC (Auto) Urine Creatinine Urine Total Protein Fluid Total Protein Vancomycin Trough Rheumatoid Factor Complement C4 Miscellaneous Test Crossmatch 12/05/16 12/05/16 12/05/16 05:00 05:00 05:18 WBC RBC Hgb Hct MCV MCH MCHC RDW Plt Count Lymph % (Auto) [place] % (Auto) Lymph # [place] # Baso # Seg Neutrophils % Seg Neuts % (Manual) Lymphocytes % (Manual) Monocytes % (Manual) Eosinophils % (Manual) Basophils % (Manual) Nucleated RBC % Seg Neutrophils # Seg Neutrophils # Man Lymphocytes # (Manual) Monocytes # (Manual) Eosinophils # (Manual) Basophils # (Manual) PT INR Fibrinogen dRVVT Confirm Interp Factor V Activity POC ABG pH POC ABG pCO2 POC ABG pO2 ABG pO2 ABG HCO3 ABG Base Excess ABG Hemoglobin Oxyhemoglobin Sodium Potassium Chloride Carbon Dioxide 21 L BUN 85 H Creatinine 1.9 H Glucose 131 H POC Glucose 154 H Lactic Acid Calcium Ionized Calcium Phosphorus Magnesium Direct Bilirubin AST ALT Alkaline Phosphatase Lactate Dehydrogenase Troponin T C-Reactive Protein 19.30 H Total Protein Albumin Prealbumin Triglycerides Cholesterol LDL Cholesterol Direct HDL Cholesterol 25-OH Vitamin D Total PTH Intact Urine pH Urine WBC (Auto) Urine Creatinine Urine Total Protein Fluid Total Protein Vancomycin Trough Rheumatoid Factor Complement C4 Miscellaneous Test Crossmatch 12/05/16 12/05/16 12/05/16 11:43 17:46 23:25 WBC RBC Hgb Hct MCV MCH MCHC RDW Plt Count Lymph % (Auto) [place] % (Auto) Lymph # [place] # Baso # Seg Neutrophils % Seg Neuts % (Manual) Lymphocytes % (Manual) Monocytes % (Manual) Eosinophils % (Manual) Basophils % (Manual) Nucleated RBC % Seg Neutrophils # Seg Neutrophils # Man Lymphocytes # (Manual) Monocytes # (Manual) Eosinophils # (Manual) Basophils # (Manual) PT INR Fibrinogen dRVVT Confirm Interp Factor V Activity POC ABG pH POC ABG pCO2 POC ABG pO2 ABG pO2 ABG HCO3 ABG Base Excess ABG Hemoglobin Oxyhemoglobin Sodium Potassium Chloride Carbon Dioxide BUN Creatinine Glucose POC Glucose 117 H 113 H 111 H Lactic Acid Calcium Ionized Calcium Phosphorus Magnesium Direct Bilirubin AST ALT Alkaline Phosphatase Lactate Dehydrogenase Troponin T C-Reactive Protein Total Protein Albumin Prealbumin Triglycerides Cholesterol LDL Cholesterol Direct HDL Cholesterol 25-OH Vitamin D Total PTH Intact Urine pH Urine WBC (Auto) Urine Creatinine Urine Total Protein Fluid Total Protein Vancomycin Trough Rheumatoid Factor Complement C4 Miscellaneous Test Crossmatch 12/05/16 12/06/16 12/06/16 Unknown 04:58 06:00 WBC RBC Hgb Hct MCV MCH MCHC RDW Plt Count Lymph % (Auto) [place] % (Auto) Lymph # [place] # Baso # Seg Neutrophils % Seg Neuts % (Manual) Lymphocytes % (Manual) Monocytes % (Manual) Eosinophils % (Manual) Basophils % (Manual) Nucleated RBC % Seg Neutrophils # Seg Neutrophils # Man Lymphocytes # (Manual) Monocytes # (Manual) Eosinophils # (Manual) Basophils # (Manual) PT INR Fibrinogen dRVVT Confirm Interp Factor V Activity POC ABG pH POC ABG pCO2 POC ABG pO2 ABG pO2 75.2 L ABG HCO3 ABG Base Excess -3.4 L ABG Hemoglobin 7.4 L Oxyhemoglobin 94.5 L Sodium Potassium Chloride Carbon Dioxide 20 L BUN 99 H Creatinine 2.1 H Glucose 126 H POC Glucose 145 H Lactic Acid Calcium Ionized Calcium Phosphorus 4.80 H Magnesium Direct Bilirubin AST ALT Alkaline Phosphatase Lactate Dehydrogenase Troponin T C-Reactive Protein Total Protein Albumin Prealbumin Triglycerides Cholesterol LDL Cholesterol Direct HDL Cholesterol 25-OH Vitamin D Total PTH Intact Urine pH Urine WBC (Auto) Urine Creatinine Urine Total Protein Fluid Total Protein Vancomycin Trough Rheumatoid Factor Complement C4 Miscellaneous Test Crossmatch 12/06/16 12/06/16 12/06/16 06:46 11:54 17:55 WBC RBC Hgb 8.3 L Hct 26.4 L MCV MCH MCHC RDW Plt Count Lymph % (Auto) [place] % (Auto) Lymph # [place] # Baso # Seg Neutrophils % Seg Neuts % (Manual) Lymphocytes % (Manual) Monocytes % (Manual) Eosinophils % (Manual) Basophils % (Manual) Nucleated RBC % Seg Neutrophils # Seg Neutrophils # Man Lymphocytes # (Manual) Monocytes # (Manual) Eosinophils # (Manual) Basophils # (Manual) PT INR Fibrinogen dRVVT Confirm Interp Factor V Activity POC ABG pH POC ABG pCO2 POC ABG pO2 ABG pO2 ABG HCO3 ABG Base Excess ABG Hemoglobin Oxyhemoglobin Sodium Potassium Chloride Carbon Dioxide BUN Creatinine Glucose POC Glucose 126 H 157 H Lactic Acid Calcium Ionized Calcium Phosphorus Magnesium Direct Bilirubin AST ALT Alkaline Phosphatase Lactate Dehydrogenase Troponin T C-Reactive Protein Total Protein Albumin Prealbumin Triglycerides Cholesterol LDL Cholesterol Direct HDL Cholesterol 25-OH Vitamin D Total PTH Intact Urine pH Urine WBC (Auto) Urine Creatinine Urine Total Protein Fluid Total Protein Vancomycin Trough Rheumatoid Factor Complement C4 Miscellaneous Test Crossmatch 12/06/16 12/07/16 12/07/16 23:59 05:34 06:30 WBC RBC Hgb Hct MCV MCH MCHC RDW Plt Count Lymph % (Auto) [place] % (Auto) Lymph # [place] # Baso # Seg Neutrophils % Seg Neuts % (Manual) Lymphocytes % (Manual) Monocytes % (Manual) Eosinophils % (Manual) Basophils % (Manual) Nucleated RBC % Seg Neutrophils # Seg Neutrophils # Man Lymphocytes # (Manual) Monocytes # (Manual) Eosinophils # (Manual) Basophils # (Manual) PT INR Fibrinogen dRVVT Confirm Interp Factor V Activity POC ABG pH POC ABG pCO2 POC ABG pO2 ABG pO2 ABG HCO3 ABG Base Excess ABG Hemoglobin Oxyhemoglobin Sodium Potassium Chloride Carbon Dioxide BUN 67 H Creatinine 1.4 H Glucose 126 H POC Glucose 129 H 129 H Lactic Acid Calcium Ionized Calcium Phosphorus Magnesium Direct Bilirubin AST ALT Alkaline Phosphatase Lactate Dehydrogenase Troponin T C-Reactive Protein Total Protein Albumin Prealbumin Triglycerides Cholesterol LDL Cholesterol Direct HDL Cholesterol 25-OH Vitamin D Total PTH Intact Urine pH Urine WBC (Auto) Urine Creatinine Urine Total Protein Fluid Total Protein Vancomycin Trough Rheumatoid Factor Complement C4 Miscellaneous Test Crossmatch 12/07/16 12/07/16 12/07/16 06:30 08:00 09:45 WBC 18.8 H RBC 2.52 L Hgb 6.9 L 6.8 L Hct 21.2 L 21.1 L MCV MCH 27 L MCHC RDW 18.0 H Plt Count Lymph % (Auto) [place] % (Auto) 9.9 H Lymph # [place] # 1.9 H Baso # Seg Neutrophils % 71.8 H Seg Neuts % (Manual) Lymphocytes % (Manual) Monocytes % (Manual) Eosinophils % (Manual) Basophils % (Manual) Nucleated RBC % Seg Neutrophils # 13.5 H Seg Neutrophils # Man Lymphocytes # (Manual) Monocytes # (Manual) Eosinophils # (Manual) Basophils # (Manual) PT INR Fibrinogen dRVVT Confirm Interp Factor V Activity POC ABG pH POC ABG pCO2 POC ABG pO2 ABG pO2 ABG HCO3 ABG Base Excess ABG Hemoglobin Oxyhemoglobin Sodium Potassium Chloride Carbon Dioxide BUN Creatinine Glucose POC Glucose Lactic Acid Calcium Ionized Calcium Phosphorus Magnesium Direct Bilirubin AST ALT Alkaline Phosphatase Lactate Dehydrogenase Troponin T C-Reactive Protein Total Protein Albumin Prealbumin Triglycerides Cholesterol LDL Cholesterol Direct HDL Cholesterol 25-OH Vitamin D Total PTH Intact Urine pH Urine WBC (Auto) Urine Creatinine Urine Total Protein Fluid Total Protein Vancomycin Trough Rheumatoid Factor Complement C4 Miscellaneous Test Crossmatch See Detail 12/07/16 12/07/16 12/07/16 11:44 18:19 23:59 WBC RBC Hgb Hct MCV MCH MCHC RDW Plt Count Lymph % (Auto) [place] % (Auto) Lymph # [place] # Baso # Seg Neutrophils % Seg Neuts % (Manual) Lymphocytes % (Manual) Monocytes % (Manual) Eosinophils % (Manual) Basophils % (Manual) Nucleated RBC % Seg Neutrophils # Seg Neutrophils # Man Lymphocytes # (Manual) Monocytes # (Manual) Eosinophils # (Manual) Basophils # (Manual) PT INR Fibrinogen dRVVT Confirm Interp Factor V Activity POC ABG pH POC ABG pCO2 POC ABG pO2 ABG pO2 ABG HCO3 ABG Base Excess ABG Hemoglobin Oxyhemoglobin Sodium Potassium Chloride Carbon Dioxide BUN Creatinine Glucose POC Glucose 137 H 138 H 133 H Lactic Acid Calcium Ionized Calcium Phosphorus Magnesium Direct Bilirubin AST ALT Alkaline Phosphatase Lactate Dehydrogenase Troponin T C-Reactive Protein Total Protein Albumin Prealbumin Triglycerides Cholesterol LDL Cholesterol Direct HDL Cholesterol 25-OH Vitamin D Total PTH Intact Urine pH Urine WBC (Auto) Urine Creatinine Urine Total Protein Fluid Total Protein Vancomycin Trough Rheumatoid Factor Complement C4 Miscellaneous Test Crossmatch 12/08/16 12/08/16 12/08/16 05:25 05:30 05:30 WBC 23.8 H RBC 2.88 L Hgb 8.1 L Hct 24.3 L MCV MCH MCHC RDW 16.7 H Plt Count Lymph % (Auto) [place] % (Auto) Lymph # [place] # Baso # Seg Neutrophils % Seg Neuts % (Manual) 76.0 H Lymphocytes % (Manual) 9.0 L Monocytes % (Manual) 9.0 H Eosinophils % (Manual) Basophils % (Manual) Nucleated RBC % Seg Neutrophils # Seg Neutrophils # Man 18.1 H Lymphocytes # (Manual) Monocytes # (Manual) 2.1 H Eosinophils # (Manual) Basophils # (Manual) PT INR Fibrinogen dRVVT Confirm Interp Factor V Activity POC ABG pH POC ABG pCO2 POC ABG pO2 ABG pO2 ABG HCO3 ABG Base Excess ABG Hemoglobin Oxyhemoglobin Sodium Potassium Chloride Carbon Dioxide 21 L BUN 76 H Creatinine 1.6 H Glucose 133 H POC Glucose 177 H Lactic Acid Calcium Ionized Calcium Phosphorus Magnesium Direct Bilirubin AST ALT Alkaline Phosphatase Lactate Dehydrogenase Troponin T C-Reactive Protein Total Protein Albumin Prealbumin Triglycerides Cholesterol LDL Cholesterol Direct HDL Cholesterol 25-OH Vitamin D Total PTH Intact Urine pH Urine WBC (Auto) Urine Creatinine Urine Total Protein Fluid Total Protein Vancomycin Trough Rheumatoid Factor Complement C4 Miscellaneous Test Crossmatch 12/08/16 12/08/16 12/09/16 11:45 18:00 00:00 WBC RBC Hgb Hct MCV MCH MCHC RDW Plt Count Lymph % (Auto) [place] % (Auto) Lymph # [place] # Baso # Seg Neutrophils % Seg Neuts % (Manual) Lymphocytes % (Manual) Monocytes % (Manual) Eosinophils % (Manual) Basophils % (Manual) Nucleated RBC % Seg Neutrophils # Seg Neutrophils # Man Lymphocytes # (Manual) Monocytes # (Manual) Eosinophils # (Manual) Basophils # (Manual) PT INR Fibrinogen dRVVT Confirm Interp Factor V Activity POC ABG pH POC ABG pCO2 POC ABG pO2 ABG pO2 ABG HCO3 ABG Base Excess ABG Hemoglobin Oxyhemoglobin Sodium Potassium Chloride Carbon Dioxide BUN Creatinine Glucose POC Glucose 163 H 123 H 137 H Lactic Acid Calcium Ionized Calcium Phosphorus Magnesium Direct Bilirubin AST ALT Alkaline Phosphatase Lactate Dehydrogenase Troponin T C-Reactive Protein Total Protein Albumin Prealbumin Triglycerides Cholesterol LDL Cholesterol Direct HDL Cholesterol 25-OH Vitamin D Total PTH Intact Urine pH Urine WBC (Auto) Urine Creatinine Urine Total Protein Fluid Total Protein Vancomycin Trough Rheumatoid Factor Complement C4 Miscellaneous Test Crossmatch 12/09/16 12/09/16 12/09/16 05:34 06:00 06:00 WBC 15.5 H RBC 2.87 L Hgb 8.0 L Hct 24.2 L MCV MCH MCHC RDW 17.2 H Plt Count Lymph % (Auto) [place] % (Auto) 11.6 H Lymph # [place] # 1.8 H Baso # Seg Neutrophils % 70.8 H Seg Neuts % (Manual) Lymphocytes % (Manual) Monocytes % (Manual) Eosinophils % (Manual) Basophils % (Manual) Nucleated RBC % Seg Neutrophils # 11.0 H Seg Neutrophils # Man Lymphocytes # (Manual) Monocytes # (Manual) Eosinophils # (Manual) Basophils # (Manual) PT INR Fibrinogen dRVVT Confirm Interp Factor V Activity POC ABG pH POC ABG pCO2 POC ABG pO2 ABG pO2 ABG HCO3 ABG Base Excess ABG Hemoglobin Oxyhemoglobin Sodium Potassium Chloride Carbon Dioxide BUN 51 H Creatinine Glucose 117 H POC Glucose 136 H Lactic Acid Calcium Ionized Calcium Phosphorus Magnesium Direct Bilirubin AST ALT Alkaline Phosphatase Lactate Dehydrogenase Troponin T C-Reactive Protein Total Protein Albumin Prealbumin Triglycerides Cholesterol LDL Cholesterol Direct HDL Cholesterol 25-OH Vitamin D Total PTH Intact Urine pH Urine WBC (Auto) Urine Creatinine Urine Total Protein Fluid Total Protein Vancomycin Trough Rheumatoid Factor Complement C4 Miscellaneous Test Crossmatch 12/09/16 12/09/1617 12:29 17:52 23:10 WBC RBC Hgb Hct MCV MCH MCHC RDW Plt Count Lymph % (Auto) [place] % (Auto) Lymph # [place] # Baso # Seg Neutrophils % Seg Neuts % (Manual) Lymphocytes % (Manual) Monocytes % (Manual) Eosinophils % (Manual) Basophils % (Manual) Nucleated RBC % Seg Neutrophils # Seg Neutrophils # Man Lymphocytes # (Manual) Monocytes # (Manual) Eosinophils # (Manual) Basophils # (Manual) PT INR Fibrinogen dRVVT Confirm Interp Factor V Activity POC ABG pH POC ABG pCO2 POC ABG pO2 ABG pO2 ABG HCO3 ABG Base Excess ABG Hemoglobin Oxyhemoglobin Sodium Potassium Chloride Carbon Dioxide BUN Creatinine Glucose POC Glucose 139 H 140 H 129 H Lactic Acid Calcium Ionized Calcium Phosphorus Magnesium Direct Bilirubin AST ALT Alkaline Phosphatase Lactate Dehydrogenase Troponin T C-Reactive Protein Total Protein Albumin Prealbumin Triglycerides Cholesterol LDL Cholesterol Direct HDL Cholesterol 25-OH Vitamin D Total PTH Intact Urine pH Urine WBC (Auto) Urine Creatinine Urine Total Protein Fluid Total Protein Vancomycin Trough Rheumatoid Factor Complement C4 Miscellaneous Test Crossmatch 12/10/16 12/10/16 12/10/16 05:00 05:00 06:54 WBC 15.7 H RBC 2.87 L Hgb 8.2 L Hct 24.4 L MCV MCH MCHC RDW 17.2 H Plt Count Lymph % (Auto) [place] % (Auto) 8.3 H Lymph # [place] # 1.3 H Baso # Seg Neutrophils % 72.8 H Seg Neuts % (Manual) Lymphocytes % (Manual) Monocytes % (Manual) Eosinophils % (Manual) Basophils % (Manual) Nucleated RBC % Seg Neutrophils # 11.4 H Seg Neutrophils # Man Lymphocytes # (Manual) Monocytes # (Manual) Eosinophils # (Manual) Basophils # (Manual) PT INR Fibrinogen dRVVT Confirm Interp Factor V Activity POC ABG pH POC ABG pCO2 POC ABG pO2 ABG pO2 ABG HCO3 ABG Base Excess ABG Hemoglobin Oxyhemoglobin Sodium Potassium Chloride Carbon Dioxide BUN 64 H Creatinine 1.4 H Glucose 134 H POC Glucose 154 H Lactic Acid Calcium Ionized Calcium Phosphorus Magnesium Direct Bilirubin AST ALT Alkaline Phosphatase Lactate Dehydrogenase Troponin T C-Reactive Protein Total Protein Albumin Prealbumin Triglycerides Cholesterol LDL Cholesterol Direct HDL Cholesterol 25-OH Vitamin D Total PTH Intact Urine pH Urine WBC (Auto) Urine Creatinine Urine Total Protein Fluid Total Protein Vancomycin Trough Rheumatoid Factor Complement C4 Miscellaneous Test Crossmatch 12/10/16 12/10/16 12/10/16 11:58 17:29 23:52 WBC RBC Hgb Hct MCV MCH MCHC RDW Plt Count Lymph % (Auto) [place] % (Auto) Lymph # [place] # Baso # Seg Neutrophils % Seg Neuts % (Manual) Lymphocytes % (Manual) Monocytes % (Manual) Eosinophils % (Manual) Basophils % (Manual) Nucleated RBC % Seg Neutrophils # Seg Neutrophils # Man Lymphocytes # (Manual) Monocytes # (Manual) Eosinophils # (Manual) Basophils # (Manual) PT INR Fibrinogen dRVVT Confirm Interp Factor V Activity POC ABG pH POC ABG pCO2 POC ABG pO2 ABG pO2 ABG HCO3 ABG Base Excess ABG Hemoglobin Oxyhemoglobin Sodium Potassium Chloride Carbon Dioxide BUN Creatinine Glucose POC Glucose 144 H 163 H 125 H Lactic Acid Calcium Ionized Calcium Phosphorus Magnesium Direct Bilirubin AST ALT Alkaline Phosphatase Lactate Dehydrogenase Troponin T C-Reactive Protein Total Protein Albumin Prealbumin Triglycerides Cholesterol LDL Cholesterol Direct HDL Cholesterol 25-OH Vitamin D Total PTH Intact Urine pH Urine WBC (Auto) Urine Creatinine Urine Total Protein Fluid Total Protein Vancomycin Trough Rheumatoid Factor Complement C4 Miscellaneous Test Crossmatch 12/11/16 12/11/16 12/11/16 05:38 06:30 06:30 WBC 14.4 H RBC 2.76 L Hgb 7.7 L Hct 23.4 L MCV MCH MCHC RDW 17.2 H Plt Count Lymph % (Auto) [place] % (Auto) 8.8 H Lymph # [place] # 1.3 H Baso # Seg Neutrophils % 72.5 H Seg Neuts % (Manual) Lymphocytes % (Manual) Monocytes % (Manual) Eosinophils % (Manual) Basophils % (Manual) Nucleated RBC % Seg Neutrophils # 10.5 H Seg Neutrophils # Man Lymphocytes # (Manual) Monocytes # (Manual) Eosinophils # (Manual) Basophils # (Manual) PT INR Fibrinogen dRVVT Confirm Interp Factor V Activity POC ABG pH POC ABG pCO2 POC ABG pO2 ABG pO2 ABG HCO3 ABG Base Excess ABG Hemoglobin Oxyhemoglobin Sodium Potassium Chloride Carbon Dioxide BUN 43 H Creatinine Glucose 124 H POC Glucose 141 H Lactic Acid Calcium 8.3 L Ionized Calcium Phosphorus Magnesium 1.60 L Direct Bilirubin AST ALT Alkaline Phosphatase Lactate Dehydrogenase Troponin T C-Reactive Protein Total Protein Albumin Prealbumin Triglycerides Cholesterol LDL Cholesterol Direct HDL Cholesterol 25-OH Vitamin D Total PTH Intact Urine pH Urine WBC (Auto) Urine Creatinine Urine Total Protein Fluid Total Protein Vancomycin Trough Rheumatoid Factor Complement C4 Miscellaneous Test Crossmatch 12/11/16 12/11/16 12/11/16 11:15 17:59 23:48 WBC RBC Hgb Hct MCV MCH MCHC RDW Plt Count Lymph % (Auto) [place] % (Auto) Lymph # [place] # Baso # Seg Neutrophils % Seg Neuts % (Manual) Lymphocytes % (Manual) Monocytes % (Manual) Eosinophils % (Manual) Basophils % (Manual) Nucleated RBC % Seg Neutrophils # Seg Neutrophils # Man Lymphocytes # (Manual) Monocytes # (Manual) Eosinophils # (Manual) Basophils # (Manual) PT INR Fibrinogen dRVVT Confirm Interp Factor V Activity POC ABG pH POC ABG pCO2 POC ABG pO2 ABG pO2 ABG HCO3 ABG Base Excess ABG Hemoglobin Oxyhemoglobin Sodium Potassium Chloride Carbon Dioxide BUN Creatinine Glucose POC Glucose 188 H 106 H 119 H Lactic Acid Calcium Ionized Calcium Phosphorus Magnesium Direct Bilirubin AST ALT Alkaline Phosphatase Lactate Dehydrogenase Troponin T C-Reactive Protein Total Protein Albumin Prealbumin Triglycerides Cholesterol LDL Cholesterol Direct HDL Cholesterol 25-OH Vitamin D Total PTH Intact Urine pH Urine WBC (Auto) Urine Creatinine Urine Total Protein Fluid Total Protein Vancomycin Trough Rheumatoid Factor Complement C4 Miscellaneous Test Crossmatch 12/12/16 12/12/16 12/12/16 05:00 06:01 12:20 WBC 16.7 H RBC 2.87 L Hgb 8.0 L Hct 24.2 L MCV MCH MCHC RDW 17.6 H Plt Count Lymph % (Auto) [place] % (Auto) Lymph # [place] # 1.2 H Baso # Seg Neutrophils % 75.3 H Seg Neuts % (Manual) Lymphocytes % (Manual) Monocytes % (Manual) Eosinophils % (Manual) Basophils % (Manual) Nucleated RBC % Seg Neutrophils # 12.6 H Seg Neutrophils # Man Lymphocytes # (Manual) Monocytes # (Manual) Eosinophils # (Manual) Basophils # (Manual) PT INR Fibrinogen dRVVT Confirm Interp Factor V Activity POC ABG pH POC ABG pCO2 POC ABG pO2 ABG pO2 ABG HCO3 ABG Base Excess ABG Hemoglobin Oxyhemoglobin Sodium Potassium Chloride Carbon Dioxide BUN Creatinine Glucose POC Glucose 134 H 149 H Lactic Acid Calcium Ionized Calcium Phosphorus Magnesium Direct Bilirubin AST ALT Alkaline Phosphatase Lactate Dehydrogenase Troponin T C-Reactive Protein Total Protein Albumin Prealbumin Triglycerides Cholesterol LDL Cholesterol Direct HDL Cholesterol 25-OH Vitamin D Total PTH Intact Urine pH Urine WBC (Auto) Urine Creatinine Urine Total Protein Fluid Total Protein Vancomycin Trough Rheumatoid Factor Complement C4 Miscellaneous Test Crossmatch 12/12/16 12/12/16 12/12/16 17:38 23:01 Unknown WBC RBC Hgb Hct MCV MCH MCHC RDW Plt Count Lymph % (Auto) [place] % (Auto) Lymph # [place] # Baso # Seg Neutrophils % Seg Neuts % (Manual) Lymphocytes % (Manual) Monocytes % (Manual) Eosinophils % (Manual) Basophils % (Manual) Nucleated RBC % Seg Neutrophils # Seg Neutrophils # Man Lymphocytes # (Manual) Monocytes # (Manual) Eosinophils # (Manual) Basophils # (Manual) PT INR Fibrinogen dRVVT Confirm Interp Factor V Activity POC ABG pH POC ABG pCO2 POC ABG pO2 ABG pO2 ABG HCO3 ABG Base Excess ABG Hemoglobin Oxyhemoglobin Sodium Potassium Chloride Carbon Dioxide BUN 60 H Creatinine 1.3 H Glucose 126 H POC Glucose 127 H 144 H Lactic Acid Calcium Ionized Calcium Phosphorus Magnesium Direct Bilirubin AST ALT Alkaline Phosphatase Lactate Dehydrogenase Troponin T C-Reactive Protein Total Protein Albumin Prealbumin Triglycerides Cholesterol LDL Cholesterol Direct HDL Cholesterol 25-OH Vitamin D Total PTH Intact Urine pH Urine WBC (Auto) Urine Creatinine Urine Total Protein Fluid Total Protein Vancomycin Trough Rheumatoid Factor Complement C4 Miscellaneous Test Crossmatch 12/13/16 12/13/16 12/13/16 04:00 04:00 05:19 WBC 18.7 H RBC 2.89 L Hgb 8.3 L Hct 24.6 L MCV MCH MCHC RDW 17.5 H Plt Count Lymph % (Auto) [place] % (Auto) Lymph # [place] # 1.3 H Baso # Seg Neutrophils % 71.5 H Seg Neuts % (Manual) Lymphocytes % (Manual) Monocytes % (Manual) Eosinophils % (Manual) Basophils % (Manual) Nucleated RBC % Seg Neutrophils # 13.4 H Seg Neutrophils # Man Lymphocytes # (Manual) Monocytes # (Manual) Eosinophils # (Manual) Basophils # (Manual) PT INR Fibrinogen dRVVT Confirm Interp Factor V Activity POC ABG pH POC ABG pCO2 POC ABG pO2 ABG pO2 ABG HCO3 ABG Base Excess ABG Hemoglobin Oxyhemoglobin Sodium Potassium Chloride Carbon Dioxide BUN 73 H Creatinine 1.5 H Glucose 141 H POC Glucose 171 H Lactic Acid Calcium Ionized Calcium Phosphorus Magnesium Direct Bilirubin AST ALT Alkaline Phosphatase Lactate Dehydrogenase Troponin T C-Reactive Protein Total Protein Albumin Prealbumin Triglycerides Cholesterol LDL Cholesterol Direct HDL Cholesterol 25-OH Vitamin D Total PTH Intact Urine pH Urine WBC (Auto) Urine Creatinine Urine Total Protein Fluid Total Protein Vancomycin Trough Rheumatoid Factor Complement C4 Miscellaneous Test Crossmatch 12/13/16 12/13/16 12/14/16 12:28 16:48 00:01 WBC RBC Hgb Hct MCV MCH MCHC RDW Plt Count Lymph % (Auto) [place] % (Auto) Lymph # [place] # Baso # Seg Neutrophils % Seg Neuts % (Manual) Lymphocytes % (Manual) Monocytes % (Manual) Eosinophils % (Manual) Basophils % (Manual) Nucleated RBC % Seg Neutrophils # Seg Neutrophils # Man Lymphocytes # (Manual) Monocytes # (Manual) Eosinophils # (Manual) Basophils # (Manual) PT INR Fibrinogen dRVVT Confirm Interp Factor V Activity POC ABG pH POC ABG pCO2 POC ABG pO2 ABG pO2 ABG HCO3 ABG Base Excess ABG Hemoglobin Oxyhemoglobin Sodium Potassium Chloride Carbon Dioxide BUN Creatinine Glucose POC Glucose 206 H 173 H 139 H Lactic Acid Calcium Ionized Calcium Phosphorus Magnesium Direct Bilirubin AST ALT Alkaline Phosphatase Lactate Dehydrogenase Troponin T C-Reactive Protein Total Protein Albumin Prealbumin Triglycerides Cholesterol LDL Cholesterol Direct HDL Cholesterol 25-OH Vitamin D Total PTH Intact Urine pH Urine WBC (Auto) Urine Creatinine Urine Total Protein Fluid Total Protein Vancomycin Trough Rheumatoid Factor Complement C4 Miscellaneous Test Crossmatch 12/14/16 12/14/16 12/14/16 05:16 06:10 11:17 WBC RBC Hgb Hct MCV MCH MCHC RDW Plt Count Lymph % (Auto) [place] % (Auto) Lymph # [place] # Baso # Seg Neutrophils % Seg Neuts % (Manual) Lymphocytes % (Manual) Monocytes % (Manual) Eosinophils % (Manual) Basophils % (Manual) Nucleated RBC % Seg Neutrophils # Seg Neutrophils # Man Lymphocytes # (Manual) Monocytes # (Manual) Eosinophils # (Manual) Basophils # (Manual) PT INR Fibrinogen dRVVT Confirm Interp Factor V Activity POC ABG pH POC ABG pCO2 POC ABG pO2 ABG pO2 ABG HCO3 ABG Base Excess ABG Hemoglobin Oxyhemoglobin Sodium Potassium Chloride Carbon Dioxide BUN 57 H Creatinine 1.4 H Glucose 135 H POC Glucose 158 H 137 H Lactic Acid Calcium Ionized Calcium Phosphorus Magnesium Direct Bilirubin AST ALT Alkaline Phosphatase Lactate Dehydrogenase Troponin T C-Reactive Protein Total Protein Albumin Prealbumin Triglycerides Cholesterol LDL Cholesterol Direct HDL Cholesterol 25-OH Vitamin D Total PTH Intact Urine pH Urine WBC (Auto) Urine Creatinine Urine Total Protein Fluid Total Protein Vancomycin Trough Rheumatoid Factor Complement C4 Miscellaneous Test Crossmatch 12/14/16 12/14/16 12/15/16 17:52 23:27 04:00 WBC RBC Hgb Hct MCV MCH MCHC RDW Plt Count Lymph % (Auto) [place] % (Auto) Lymph # [place] # Baso # Seg Neutrophils % Seg Neuts % (Manual) Lymphocytes % (Manual) Monocytes % (Manual) Eosinophils % (Manual) Basophils % (Manual) Nucleated RBC % Seg Neutrophils # Seg Neutrophils # Man Lymphocytes # (Manual) Monocytes # (Manual) Eosinophils # (Manual) Basophils # (Manual) PT INR Fibrinogen dRVVT Confirm Interp Factor V Activity POC ABG pH POC ABG pCO2 POC ABG pO2 ABG pO2 ABG HCO3 ABG Base Excess ABG Hemoglobin Oxyhemoglobin Sodium Potassium Chloride 97.9 L Carbon Dioxide BUN 75 H Creatinine 1.6 H Glucose 122 H POC Glucose 149 H 163 H Lactic Acid Calcium Ionized Calcium Phosphorus 5.20 H Magnesium Direct Bilirubin AST ALT Alkaline Phosphatase Lactate Dehydrogenase Troponin T C-Reactive Protein Total Protein Albumin Prealbumin Triglycerides Cholesterol LDL Cholesterol Direct HDL Cholesterol 25-OH Vitamin D Total PTH Intact Urine pH Urine WBC (Auto) Urine Creatinine Urine Total Protein Fluid Total Protein Vancomycin Trough Rheumatoid Factor Complement C4 Miscellaneous Test Crossmatch 12/15/16 12/15/16 12/15/16 05:50 11:24 17:01 WBC RBC Hgb Hct MCV MCH MCHC RDW Plt Count Lymph % (Auto) [place] % (Auto) Lymph # [place] # Baso # Seg Neutrophils % Seg Neuts % (Manual) Lymphocytes % (Manual) Monocytes % (Manual) Eosinophils % (Manual) Basophils % (Manual) Nucleated RBC % Seg Neutrophils # Seg Neutrophils # Man Lymphocytes # (Manual) Monocytes # (Manual) Eosinophils # (Manual) Basophils # (Manual) PT INR Fibrinogen dRVVT Confirm Interp Factor V Activity POC ABG pH POC ABG pCO2 POC ABG pO2 ABG pO2 ABG HCO3 ABG Base Excess ABG Hemoglobin Oxyhemoglobin Sodium Potassium Chloride Carbon Dioxide BUN Creatinine Glucose POC Glucose 150 H 146 H 167 H Lactic Acid Calcium Ionized Calcium Phosphorus Magnesium Direct Bilirubin AST ALT Alkaline Phosphatase Lactate Dehydrogenase Troponin T C-Reactive Protein Total Protein Albumin Prealbumin Triglycerides Cholesterol LDL Cholesterol Direct HDL Cholesterol 25-OH Vitamin D Total PTH Intact Urine pH Urine WBC (Auto) Urine Creatinine Urine Total Protein Fluid Total Protein Vancomycin Trough Rheumatoid Factor Complement C4 Miscellaneous Test Crossmatch 12/15/16 12/16/16 12/16/16 23:34 05:25 11:24 WBC RBC Hgb Hct MCV MCH MCHC RDW Plt Count Lymph % (Auto) [place] % (Auto) Lymph # [place] # Baso # Seg Neutrophils % Seg Neuts % (Manual) Lymphocytes % (Manual) Monocytes % (Manual) Eosinophils % (Manual) Basophils % (Manual) Nucleated RBC % Seg Neutrophils # Seg Neutrophils # Man Lymphocytes # (Manual) Monocytes # (Manual) Eosinophils # (Manual) Basophils # (Manual) PT INR Fibrinogen dRVVT Confirm Interp Factor V Activity POC ABG pH POC ABG pCO2 POC ABG pO2 ABG pO2 ABG HCO3 ABG Base Excess ABG Hemoglobin Oxyhemoglobin Sodium Potassium Chloride Carbon Dioxide BUN Creatinine Glucose POC Glucose 127 H 139 H 165 H Lactic Acid Calcium Ionized Calcium Phosphorus Magnesium Direct Bilirubin AST ALT Alkaline Phosphatase Lactate Dehydrogenase Troponin T C-Reactive Protein Total Protein Albumin Prealbumin Triglycerides Cholesterol LDL Cholesterol Direct HDL Cholesterol 25-OH Vitamin D Total PTH Intact Urine pH Urine WBC (Auto) Urine Creatinine Urine Total Protein Fluid Total Protein Vancomycin Trough Rheumatoid Factor Complement C4 Miscellaneous Test Crossmatch 12/16/16 12/16/16 12/16/16 15:30 16:25 17:31 WBC 17.8 H RBC 2.38 L Hgb 6.4 L Hct 20.3 L MCV MCH 27 L MCHC RDW 17.4 H Plt Count Lymph % (Auto) [place] % (Auto) Lymph # [place] # Baso # Seg Neutrophils % Seg Neuts % (Manual) Lymphocytes % (Manual) Monocytes % (Manual) 10.0 H Eosinophils % (Manual) Basophils % (Manual) Nucleated RBC % Seg Neutrophils # Seg Neutrophils # Man 8.5 H Lymphocytes # (Manual) Monocytes # (Manual) 1.8 H Eosinophils # (Manual) Basophils # (Manual) PT INR Fibrinogen dRVVT Confirm Interp Factor V Activity POC ABG pH POC ABG pCO2 POC ABG pO2 ABG pO2 ABG HCO3 ABG Base Excess ABG Hemoglobin Oxyhemoglobin Sodium Potassium Chloride Carbon Dioxide BUN Creatinine Glucose POC Glucose 176 H Lactic Acid Calcium Ionized Calcium Phosphorus Magnesium Direct Bilirubin AST ALT Alkaline Phosphatase Lactate Dehydrogenase Troponin T C-Reactive Protein Total Protein Albumin Prealbumin Triglycerides Cholesterol LDL Cholesterol Direct HDL Cholesterol 25-OH Vitamin D Total PTH Intact Urine pH Urine WBC (Auto) Urine Creatinine Urine Total Protein Fluid Total Protein Vancomycin Trough Rheumatoid Factor Complement C4 Miscellaneous Test Crossmatch See Detail 12/17/16 12/17/16 12/17/16 00:14 04:00 05:00 WBC 20.0 H RBC 2.99 L Hgb 8.5 L Hct 25.7 L MCV MCH MCHC RDW 17.2 H Plt Count Lymph % (Auto) [place] % (Auto) Lymph # [place] # Baso # Seg Neutrophils % Seg Neuts % (Manual) Lymphocytes % (Manual) Monocytes % (Manual) Eosinophils % (Manual) Basophils % (Manual) Nucleated RBC % Seg Neutrophils # Seg Neutrophils # Man Lymphocytes # (Manual) Monocytes # (Manual) Eosinophils # (Manual) Basophils # (Manual) PT INR Fibrinogen dRVVT Confirm Interp Factor V Activity POC ABG pH POC ABG pCO2 POC ABG pO2 ABG pO2 ABG HCO3 ABG Base Excess ABG Hemoglobin Oxyhemoglobin Sodium Potassium Chloride 97.7 L Carbon Dioxide BUN 73 H Creatinine 1.7 H Glucose 136 H POC Glucose 148 H Lactic Acid Calcium Ionized Calcium Phosphorus 2.20 L Magnesium 2.70 H Direct Bilirubin AST ALT Alkaline Phosphatase Lactate Dehydrogenase Troponin T C-Reactive Protein Total Protein Albumin Prealbumin Triglycerides Cholesterol LDL Cholesterol Direct HDL Cholesterol 25-OH Vitamin D Total PTH Intact Urine pH Urine WBC (Auto) Urine Creatinine Urine Total Protein Fluid Total Protein Vancomycin Trough Rheumatoid Factor Complement C4 Miscellaneous Test Crossmatch 12/17/16 12/17/16 12/17/16 05:39 12:50 16:32 WBC RBC Hgb Hct MCV MCH MCHC RDW Plt Count Lymph % (Auto) [place] % (Auto) Lymph # [place] # Baso # Seg Neutrophils % Seg Neuts % (Manual) Lymphocytes % (Manual) Monocytes % (Manual) Eosinophils % (Manual) Basophils % (Manual) Nucleated RBC % Seg Neutrophils # Seg Neutrophils # Man Lymphocytes # (Manual) Monocytes # (Manual) Eosinophils # (Manual) Basophils # (Manual) PT INR Fibrinogen dRVVT Confirm Interp Factor V Activity POC ABG pH POC ABG pCO2 POC ABG pO2 ABG pO2 ABG HCO3 ABG Base Excess ABG Hemoglobin Oxyhemoglobin Sodium Potassium Chloride Carbon Dioxide BUN Creatinine Glucose POC Glucose 162 H 146 H 169 H Lactic Acid Calcium Ionized Calcium Phosphorus Magnesium Direct Bilirubin AST ALT Alkaline Phosphatase Lactate Dehydrogenase Troponin T C-Reactive Protein Total Protein Albumin Prealbumin Triglycerides Cholesterol LDL Cholesterol Direct HDL Cholesterol 25-OH Vitamin D Total PTH Intact Urine pH Urine WBC (Auto) Urine Creatinine Urine Total Protein Fluid Total Protein Vancomycin Trough Rheumatoid Factor Complement C4 Miscellaneous Test Crossmatch 12/17/16 12/18/16 12/18/16 23:57 05:00 05:32 WBC RBC Hgb Hct MCV MCH MCHC RDW Plt Count Lymph % (Auto) [place] % (Auto) Lymph # [place] # Baso # Seg Neutrophils % Seg Neuts % (Manual) Lymphocytes % (Manual) Monocytes % (Manual) Eosinophils % (Manual) Basophils % (Manual) Nucleated RBC % Seg Neutrophils # Seg Neutrophils # Man Lymphocytes # (Manual) Monocytes # (Manual) Eosinophils # (Manual) Basophils # (Manual) PT INR Fibrinogen dRVVT Confirm Interp Factor V Activity POC ABG pH POC ABG pCO2 POC ABG pO2 ABG pO2 ABG HCO3 ABG Base Excess ABG Hemoglobin Oxyhemoglobin Sodium Potassium Chloride 97.0 L Carbon Dioxide BUN 63 H Creatinine 1.4 H Glucose 174 H POC Glucose 145 H 201 H Lactic Acid Calcium Ionized Calcium Phosphorus 1.70 L D Magnesium Direct Bilirubin AST ALT Alkaline Phosphatase 257 H Lactate Dehydrogenase Troponin T C-Reactive Protein Total Protein 5.9 L Albumin 1.8 L Prealbumin Triglycerides Cholesterol LDL Cholesterol Direct HDL Cholesterol 25-OH Vitamin D Total PTH Intact Urine pH Urine WBC (Auto) Urine Creatinine Urine Total Protein Fluid Total Protein Vancomycin Trough Rheumatoid Factor Complement C4 Miscellaneous Test Crossmatch 12/18/16 12/18/16 12/18/16 11:43 16:52 23:52 WBC RBC Hgb Hct MCV MCH MCHC RDW Plt Count Lymph % (Auto) [place] % (Auto) Lymph # [place] # Baso # Seg Neutrophils % Seg Neuts % (Manual) Lymphocytes % (Manual) Monocytes % (Manual) Eosinophils % (Manual) Basophils % (Manual) Nucleated RBC % Seg Neutrophils # Seg Neutrophils # Man Lymphocytes # (Manual) Monocytes # (Manual) Eosinophils # (Manual) Basophils # (Manual) PT INR Fibrinogen dRVVT Confirm Interp Factor V Activity POC ABG pH POC ABG pCO2 POC ABG pO2 ABG pO2 ABG HCO3 ABG Base Excess ABG Hemoglobin Oxyhemoglobin Sodium Potassium Chloride Carbon Dioxide BUN Creatinine Glucose POC Glucose 177 H 110 H 162 H Lactic Acid Calcium Ionized Calcium Phosphorus Magnesium Direct Bilirubin AST ALT Alkaline Phosphatase Lactate Dehydrogenase Troponin T C-Reactive Protein Total Protein Albumin Prealbumin Triglycerides Cholesterol LDL Cholesterol Direct HDL Cholesterol 25-OH Vitamin D Total PTH Intact Urine pH Urine WBC (Auto) Urine Creatinine Urine Total Protein Fluid Total Protein Vancomycin Trough Rheumatoid Factor Complement C4 Miscellaneous Test Crossmatch 12/19/16 12/19/16 12/19/16 05:02 05:24 09:30 WBC 20.1 H RBC 2.73 L Hgb 7.6 L Hct 23.6 L MCV MCH MCHC RDW 17.6 H Plt Count Lymph % (Auto) [place] % (Auto) Lymph # [place] # Baso # Seg Neutrophils % Seg Neuts % (Manual) Lymphocytes % (Manual) 13.0 L Monocytes % (Manual) Eosinophils % (Manual) Basophils % (Manual) Nucleated RBC % 1.0 H Seg Neutrophils # Seg Neutrophils # Man 12.9 H Lymphocytes # (Manual) Monocytes # (Manual) 1.4 H Eosinophils # (Manual) Basophils # (Manual) 0.2 H PT INR Fibrinogen dRVVT Confirm Interp Factor V Activity POC ABG pH POC ABG pCO2 POC ABG pO2 ABG pO2 ABG HCO3 ABG Base Excess ABG Hemoglobin Oxyhemoglobin Sodium Potassium Chloride 97.8 L Carbon Dioxide BUN 84 H Creatinine 1.6 H Glucose 133 H POC Glucose 134 H Lactic Acid Calcium Ionized Calcium Phosphorus Magnesium Direct Bilirubin AST ALT Alkaline Phosphatase Lactate Dehydrogenase Troponin T C-Reactive Protein Total Protein Albumin Prealbumin Triglycerides Cholesterol LDL Cholesterol Direct HDL Cholesterol 25-OH Vitamin D Total PTH Intact Urine pH Urine WBC (Auto) Urine Creatinine Urine Total Protein Fluid Total Protein Vancomycin Trough Rheumatoid Factor Complement C4 Miscellaneous Test Crossmatch 12/19/16 12/19/16 12/19/16 09:36 11:12 18:29 WBC RBC Hgb Hct MCV MCH MCHC RDW Plt Count Lymph % (Auto) [place] % (Auto) Lymph # [place] # Baso # Seg Neutrophils % Seg Neuts % (Manual) Lymphocytes % (Manual) Monocytes % (Manual) Eosinophils % (Manual) Basophils % (Manual) Nucleated RBC % Seg Neutrophils # Seg Neutrophils # Man Lymphocytes # (Manual) Monocytes # (Manual) Eosinophils # (Manual) Basophils # (Manual) PT INR Fibrinogen dRVVT Confirm Interp Factor V Activity POC ABG pH 7.503 H POC ABG pCO2 30.1 L POC ABG pO2 ABG pO2 ABG HCO3 ABG Base Excess ABG Hemoglobin Oxyhemoglobin Sodium Potassium Chloride Carbon Dioxide BUN Creatinine Glucose POC Glucose 138 H 156 H Lactic Acid Calcium Ionized Calcium Phosphorus Magnesium Direct Bilirubin AST ALT Alkaline Phosphatase Lactate Dehydrogenase Troponin T C-Reactive Protein Total Protein Albumin Prealbumin Triglycerides Cholesterol LDL Cholesterol Direct HDL Cholesterol 25-OH Vitamin D Total PTH Intact Urine pH Urine WBC (Auto) Urine Creatinine Urine Total Protein Fluid Total Protein Vancomycin Trough Rheumatoid Factor Complement C4 Miscellaneous Test Crossmatch 12/20/16 12/20/16 12/20/16 00:03 06:17 07:07 WBC RBC Hgb Hct MCV MCH MCHC RDW Plt Count Lymph % (Auto) [place] % (Auto) Lymph # [place] # Baso # Seg Neutrophils % Seg Neuts % (Manual) Lymphocytes % (Manual) Monocytes % (Manual) Eosinophils % (Manual) Basophils % (Manual) Nucleated RBC % Seg Neutrophils # Seg Neutrophils # Man Lymphocytes # (Manual) Monocytes # (Manual) Eosinophils # (Manual) Basophils # (Manual) PT INR Fibrinogen dRVVT Confirm Interp Factor V Activity POC ABG pH POC ABG pCO2 POC ABG pO2 ABG pO2 ABG HCO3 ABG Base Excess ABG Hemoglobin Oxyhemoglobin Sodium Potassium Chloride 97.1 L Carbon Dioxide 20 L BUN 97 H Creatinine 1.8 H Glucose 153 H POC Glucose 152 H 175 H Lactic Acid Calcium Ionized Calcium Phosphorus Magnesium Direct Bilirubin AST ALT Alkaline Phosphatase Lactate Dehydrogenase Troponin T C-Reactive Protein Total Protein Albumin Prealbumin Triglycerides Cholesterol LDL Cholesterol Direct HDL Cholesterol 25-OH Vitamin D Total PTH Intact Urine pH Urine WBC (Auto) Urine Creatinine Urine Total Protein Fluid Total Protein Vancomycin Trough Rheumatoid Factor Complement C4 Miscellaneous Test Crossmatch 12/20/16 12/20/16 12/20/16 12:00 17:42 23:53 WBC RBC Hgb Hct MCV MCH MCHC RDW Plt Count Lymph % (Auto) [place] % (Auto) Lymph # [place] # Baso # Seg Neutrophils % Seg Neuts % (Manual) Lymphocytes % (Manual) Monocytes % (Manual) Eosinophils % (Manual) Basophils % (Manual) Nucleated RBC % Seg Neutrophils # Seg Neutrophils # Man Lymphocytes # (Manual) Monocytes # (Manual) Eosinophils # (Manual) Basophils # (Manual) PT INR Fibrinogen dRVVT Confirm Interp Factor V Activity POC ABG pH POC ABG pCO2 POC ABG pO2 ABG pO2 ABG HCO3 ABG Base Excess ABG Hemoglobin Oxyhemoglobin Sodium Potassium Chloride Carbon Dioxide BUN Creatinine Glucose POC Glucose 141 H 156 H 132 H Lactic Acid Calcium Ionized Calcium Phosphorus Magnesium Direct Bilirubin AST ALT Alkaline Phosphatase Lactate Dehydrogenase Troponin T C-Reactive Protein Total Protein Albumin Prealbumin Triglycerides Cholesterol LDL Cholesterol Direct HDL Cholesterol 25-OH Vitamin D Total PTH Intact Urine pH Urine WBC (Auto) Urine Creatinine Urine Total Protein Fluid Total Protein Vancomycin Trough Rheumatoid Factor Complement C4 Miscellaneous Test Crossmatch 12/21/16 12/21/16 12/21/16 05:49 08:50 12:19 WBC RBC Hgb Hct MCV MCH MCHC RDW Plt Count Lymph % (Auto) [place] % (Auto) Lymph # [place] # Baso # Seg Neutrophils % Seg Neuts % (Manual) Lymphocytes % (Manual) Monocytes % (Manual) Eosinophils % (Manual) Basophils % (Manual) Nucleated RBC % Seg Neutrophils # Seg Neutrophils # Man Lymphocytes # (Manual) Monocytes # (Manual) Eosinophils # (Manual) Basophils # (Manual) PT INR Fibrinogen dRVVT Confirm Interp Factor V Activity POC ABG pH POC ABG pCO2 POC ABG pO2 ABG pO2 ABG HCO3 ABG Base Excess ABG Hemoglobin Oxyhemoglobin Sodium Potassium 5.2 H D Chloride Carbon Dioxide BUN 63 H Creatinine Glucose 122 H POC Glucose 132 H 136 H Lactic Acid Calcium 8.3 L Ionized Calcium Phosphorus Magnesium Direct Bilirubin AST ALT Alkaline Phosphatase Lactate Dehydrogenase Troponin T C-Reactive Protein Total Protein Albumin Prealbumin Triglycerides Cholesterol LDL Cholesterol Direct HDL Cholesterol 25-OH Vitamin D Total PTH Intact Urine pH Urine WBC (Auto) Urine Creatinine Urine Total Protein Fluid Total Protein Vancomycin Trough Rheumatoid Factor Complement C4 Miscellaneous Test Crossmatch 12/21/16 12/21/16 12/22/16 17:22 23:58 05:49 WBC RBC Hgb Hct MCV MCH MCHC RDW Plt Count Lymph % (Auto) [place] % (Auto) Lymph # [place] # Baso # Seg Neutrophils % Seg Neuts % (Manual) Lymphocytes % (Manual) Monocytes % (Manual) Eosinophils % (Manual) Basophils % (Manual) Nucleated RBC % Seg Neutrophils # Seg Neutrophils # Man Lymphocytes # (Manual) Monocytes # (Manual) Eosinophils # (Manual) Basophils # (Manual) PT INR Fibrinogen dRVVT Confirm Interp Factor V Activity POC ABG pH POC ABG pCO2 POC ABG pO2 ABG pO2 ABG HCO3 ABG Base Excess ABG Hemoglobin Oxyhemoglobin Sodium Potassium Chloride Carbon Dioxide BUN Creatinine Glucose POC Glucose 135 H 149 H 140 H Lactic Acid Calcium Ionized Calcium Phosphorus Magnesium Direct Bilirubin AST ALT Alkaline Phosphatase Lactate Dehydrogenase Troponin T C-Reactive Protein Total Protein Albumin Prealbumin Triglycerides Cholesterol LDL Cholesterol Direct HDL Cholesterol 25-OH Vitamin D Total PTH Intact Urine pH Urine WBC (Auto) Urine Creatinine Urine Total Protein Fluid Total Protein Vancomycin Trough Rheumatoid Factor Complement C4 Miscellaneous Test Crossmatch 12/22/16 12/22/16 12/22/16 06:10 11:17 17:31 WBC RBC Hgb Hct MCV MCH MCHC RDW Plt Count Lymph % (Auto) [place] % (Auto) Lymph # [place] # Baso # Seg Neutrophils % Seg Neuts % (Manual) Lymphocytes % (Manual) Monocytes % (Manual) Eosinophils % (Manual) Basophils % (Manual) Nucleated RBC % Seg Neutrophils # Seg Neutrophils # Man Lymphocytes # (Manual) Monocytes # (Manual) Eosinophils # (Manual) Basophils # (Manual) PT INR Fibrinogen dRVVT Confirm Interp Factor V Activity POC ABG pH POC ABG pCO2 POC ABG pO2 ABG pO2 ABG HCO3 ABG Base Excess ABG Hemoglobin Oxyhemoglobin Sodium Potassium Chloride Carbon Dioxide BUN 76 H Creatinine 1.5 H Glucose 241 H POC Glucose 193 H 148 H Lactic Acid Calcium Ionized Calcium Phosphorus Magnesium Direct Bilirubin AST ALT Alkaline Phosphatase Lactate Dehydrogenase Troponin T C-Reactive Protein Total Protein Albumin Prealbumin Triglycerides Cholesterol LDL Cholesterol Direct HDL Cholesterol 25-OH Vitamin D Total PTH Intact Urine pH Urine WBC (Auto) Urine Creatinine Urine Total Protein Fluid Total Protein Vancomycin Trough Rheumatoid Factor Complement C4 Miscellaneous Test Crossmatch 12/22/16 12/23/16 12/23/16 23:58 05:00 05:26 WBC RBC Hgb Hct MCV MCH MCHC RDW Plt Count Lymph % (Auto) [place] % (Auto) Lymph # [place] # Baso # Seg Neutrophils % Seg Neuts % (Manual) Lymphocytes % (Manual) Monocytes % (Manual) Eosinophils % (Manual) Basophils % (Manual) Nucleated RBC % Seg Neutrophils # Seg Neutrophils # Man Lymphocytes # (Manual) Monocytes # (Manual) Eosinophils # (Manual) Basophils # (Manual) PT INR Fibrinogen dRVVT Confirm Interp Factor V Activity POC ABG pH POC ABG pCO2 POC ABG pO2 ABG pO2 ABG HCO3 ABG Base Excess ABG Hemoglobin Oxyhemoglobin Sodium Potassium Chloride Carbon Dioxide BUN 49 H Creatinine Glucose 143 H POC Glucose 165 H 154 H Lactic Acid Calcium 8.2 L Ionized Calcium Phosphorus Magnesium 1.60 L Direct Bilirubin AST ALT Alkaline Phosphatase Lactate Dehydrogenase Troponin T C-Reactive Protein Total Protein Albumin Prealbumin Triglycerides Cholesterol LDL Cholesterol Direct HDL Cholesterol 25-OH Vitamin D Total PTH Intact Urine pH Urine WBC (Auto) Urine Creatinine Urine Total Protein Fluid Total Protein Vancomycin Trough Rheumatoid Factor Complement C4 Miscellaneous Test Crossmatch 12/23/16 12/23/16 12/24/16 12:35 17:01 00:01 WBC RBC Hgb Hct MCV MCH MCHC RDW Plt Count Lymph % (Auto) [place] % (Auto) Lymph # [place] # Baso # Seg Neutrophils % Seg Neuts % (Manual) Lymphocytes % (Manual) Monocytes % (Manual) Eosinophils % (Manual) Basophils % (Manual) Nucleated RBC % Seg Neutrophils # Seg Neutrophils # Man Lymphocytes # (Manual) Monocytes # (Manual) Eosinophils # (Manual) Basophils # (Manual) PT INR Fibrinogen dRVVT Confirm Interp Factor V Activity POC ABG pH POC ABG pCO2 POC ABG pO2 ABG pO2 ABG HCO3 ABG Base Excess ABG Hemoglobin Oxyhemoglobin Sodium Potassium Chloride Carbon Dioxide BUN Creatinine Glucose POC Glucose 164 H 149 H 135 H Lactic Acid Calcium Ionized Calcium Phosphorus Magnesium Direct Bilirubin AST ALT Alkaline Phosphatase Lactate Dehydrogenase Troponin T C-Reactive Protein Total Protein Albumin Prealbumin Triglycerides Cholesterol LDL Cholesterol Direct HDL Cholesterol 25-OH Vitamin D Total PTH Intact Urine pH Urine WBC (Auto) Urine Creatinine Urine Total Protein Fluid Total Protein Vancomycin Trough Rheumatoid Factor Complement C4 Miscellaneous Test Crossmatch 12/24/16 12/24/16 12/24/16 05:41 07:01 11:38 WBC RBC Hgb Hct MCV MCH MCHC RDW Plt Count Lymph % (Auto) [place] % (Auto) Lymph # [place] # Baso # Seg Neutrophils % Seg Neuts % (Manual) Lymphocytes % (Manual) Monocytes % (Manual) Eosinophils % (Manual) Basophils % (Manual) Nucleated RBC % Seg Neutrophils # Seg Neutrophils # Man Lymphocytes # (Manual) Monocytes # (Manual) Eosinophils # (Manual) Basophils # (Manual) PT INR Fibrinogen dRVVT Confirm Interp Factor V Activity POC ABG pH POC ABG pCO2 POC ABG pO2 ABG pO2 ABG HCO3 ABG Base Excess ABG Hemoglobin Oxyhemoglobin Sodium Potassium Chloride Carbon Dioxide BUN 72 H Creatinine 1.3 H Glucose 130 H POC Glucose 132 H 156 H Lactic Acid Calcium 8.2 L Ionized Calcium Phosphorus Magnesium Direct Bilirubin AST ALT Alkaline Phosphatase Lactate Dehydrogenase Troponin T C-Reactive Protein Total Protein Albumin Prealbumin Triglycerides Cholesterol LDL Cholesterol Direct HDL Cholesterol 25-OH Vitamin D Total PTH Intact Urine pH Urine WBC (Auto) Urine Creatinine Urine Total Protein Fluid Total Protein Vancomycin Trough Rheumatoid Factor Complement C4 Miscellaneous Test Crossmatch 12/24/16 12/25/16 12/25/16 17:53 00:23 05:45 WBC RBC Hgb Hct MCV MCH MCHC RDW Plt Count Lymph % (Auto) [place] % (Auto) Lymph # [place] # Baso # Seg Neutrophils % Seg Neuts % (Manual) Lymphocytes % (Manual) Monocytes % (Manual) Eosinophils % (Manual) Basophils % (Manual) Nucleated RBC % Seg Neutrophils # Seg Neutrophils # Man Lymphocytes # (Manual) Monocytes # (Manual) Eosinophils # (Manual) Basophils # (Manual) PT INR Fibrinogen dRVVT Confirm Interp Factor V Activity POC ABG pH POC ABG pCO2 POC ABG pO2 ABG pO2 ABG HCO3 ABG Base Excess ABG Hemoglobin Oxyhemoglobin Sodium 146 H Potassium Chloride Carbon Dioxide BUN 51 H Creatinine Glucose 109 H POC Glucose 169 H 117 H Lactic Acid Calcium Ionized Calcium Phosphorus Magnesium Direct Bilirubin AST ALT Alkaline Phosphatase Lactate Dehydrogenase Troponin T C-Reactive Protein Total Protein Albumin Prealbumin Triglycerides Cholesterol LDL Cholesterol Direct HDL Cholesterol 25-OH Vitamin D Total PTH Intact Urine pH Urine WBC (Auto) Urine Creatinine Urine Total Protein Fluid Total Protein Vancomycin Trough Rheumatoid Factor Complement C4 Miscellaneous Test Crossmatch 12/25/16 12/25/16 12/25/16 06:43 11:29 17:14 WBC RBC Hgb Hct MCV MCH MCHC RDW Plt Count Lymph % (Auto) [place] % (Auto) Lymph # [place] # Baso # Seg Neutrophils % Seg Neuts % (Manual) Lymphocytes % (Manual) Monocytes % (Manual) Eosinophils % (Manual) Basophils % (Manual) Nucleated RBC % Seg Neutrophils # Seg Neutrophils # Man Lymphocytes # (Manual) Monocytes # (Manual) Eosinophils # (Manual) Basophils # (Manual) PT INR Fibrinogen dRVVT Confirm Interp Factor V Activity POC ABG pH POC ABG pCO2 POC ABG pO2 ABG pO2 ABG HCO3 ABG Base Excess ABG Hemoglobin Oxyhemoglobin Sodium Potassium Chloride Carbon Dioxide BUN Creatinine Glucose POC Glucose 117 H 128 H 120 H Lactic Acid Calcium Ionized Calcium Phosphorus Magnesium Direct Bilirubin AST ALT Alkaline Phosphatase Lactate Dehydrogenase Troponin T C-Reactive Protein Total Protein Albumin Prealbumin Triglycerides Cholesterol LDL Cholesterol Direct HDL Cholesterol 25-OH Vitamin D Total PTH Intact Urine pH Urine WBC (Auto) Urine Creatinine Urine Total Protein Fluid Total Protein Vancomycin Trough Rheumatoid Factor Complement C4 Miscellaneous Test Crossmatch 12/25/16 12/26/16 12/26/16 23:54 05:40 05:50 WBC 16.2 H RBC 2.32 L Hgb 6.2 L Hct 20.1 L MCV MCH 27 L MCHC RDW 18.6 H Plt Count Lymph % (Auto) [place] % (Auto) Lymph # [place] # Baso # Seg Neutrophils % Seg Neuts % (Manual) Lymphocytes % (Manual) Monocytes % (Manual) Eosinophils % (Manual) Basophils % (Manual) Nucleated RBC % Seg Neutrophils # Seg Neutrophils # Man Lymphocytes # (Manual) Monocytes # (Manual) Eosinophils # (Manual) Basophils # (Manual) PT INR Fibrinogen dRVVT Confirm Interp Factor V Activity POC ABG pH POC ABG pCO2 POC ABG pO2 ABG pO2 ABG HCO3 ABG Base Excess ABG Hemoglobin Oxyhemoglobin Sodium Potassium Chloride Carbon Dioxide BUN Creatinine Glucose POC Glucose 126 H 132 H Lactic Acid Calcium Ionized Calcium Phosphorus Magnesium Direct Bilirubin AST ALT Alkaline Phosphatase Lactate Dehydrogenase Troponin T C-Reactive Protein Total Protein Albumin Prealbumin Triglycerides Cholesterol LDL Cholesterol Direct HDL Cholesterol 25-OH Vitamin D Total PTH Intact Urine pH Urine WBC (Auto) Urine Creatinine Urine Total Protein Fluid Total Protein Vancomycin Trough Rheumatoid Factor Complement C4 Miscellaneous Test Crossmatch 12/26/16 12/26/16 12/26/16 05:50 12:17 12:33 WBC RBC Hgb Hct MCV MCH MCHC RDW Plt Count Lymph % (Auto) [place] % (Auto) Lymph # [place] # Baso # Seg Neutrophils % Seg Neuts % (Manual) Lymphocytes % (Manual) Monocytes % (Manual) Eosinophils % (Manual) Basophils % (Manual) Nucleated RBC % Seg Neutrophils # Seg Neutrophils # Man Lymphocytes # (Manual) Monocytes # (Manual) Eosinophils # (Manual) Basophils # (Manual) PT INR Fibrinogen dRVVT Confirm Interp Factor V Activity POC ABG pH POC ABG pCO2 POC ABG pO2 ABG pO2 ABG HCO3 ABG Base Excess ABG Hemoglobin Oxyhemoglobin Sodium Potassium Chloride Carbon Dioxide BUN 73 H Creatinine 1.3 H Glucose 113 H POC Glucose 117 H Lactic Acid Calcium Ionized Calcium Phosphorus Magnesium Direct Bilirubin AST ALT Alkaline Phosphatase Lactate Dehydrogenase Troponin T C-Reactive Protein Total Protein Albumin Prealbumin Triglycerides Cholesterol LDL Cholesterol Direct HDL Cholesterol 25-OH Vitamin D Total PTH Intact Urine pH Urine WBC (Auto) Urine Creatinine Urine Total Protein Fluid Total Protein Vancomycin Trough Rheumatoid Factor Complement C4 Miscellaneous Test Crossmatch See Detail 12/26/16 12/26/16 12/27/16 20:00 23:21 05:00 WBC RBC Hgb 8.4 L Hct 26.3 L D MCV MCH MCHC RDW Plt Count Lymph % (Auto) [place] % (Auto) Lymph # [place] # Baso # Seg Neutrophils % Seg Neuts % (Manual) Lymphocytes % (Manual) Monocytes % (Manual) Eosinophils % (Manual) Basophils % (Manual) Nucleated RBC % Seg Neutrophils # Seg Neutrophils # Man Lymphocytes # (Manual) Monocytes # (Manual) Eosinophils # (Manual) Basophils # (Manual) PT INR Fibrinogen dRVVT Confirm Interp Factor V Activity POC ABG pH POC ABG pCO2 POC ABG pO2 ABG pO2 ABG HCO3 ABG Base Excess ABG Hemoglobin Oxyhemoglobin Sodium Potassium Chloride Carbon Dioxide BUN 85 H Creatinine 1.6 H Glucose 118 H POC Glucose 124 H Lactic Acid Calcium Ionized Calcium Phosphorus 4.80 H Magnesium Direct Bilirubin AST ALT Alkaline Phosphatase Lactate Dehydrogenase Troponin T C-Reactive Protein Total Protein Albumin Prealbumin Triglycerides Cholesterol LDL Cholesterol Direct HDL Cholesterol 25-OH Vitamin D Total PTH Intact Urine pH Urine WBC (Auto) Urine Creatinine Urine Total Protein Fluid Total Protein Vancomycin Trough Rheumatoid Factor Complement C4 Miscellaneous Test Crossmatch 12/27/16 12/27/16 12/27/16 05:00 05:35 12:24 WBC RBC Hgb 7.6 L Hct 22.8 L MCV MCH MCHC RDW Plt Count Lymph % (Auto) [place] % (Auto) Lymph # [place] # Baso # Seg Neutrophils % Seg Neuts % (Manual) Lymphocytes % (Manual) Monocytes % (Manual) Eosinophils % (Manual) Basophils % (Manual) Nucleated RBC % Seg Neutrophils # Seg Neutrophils # Man Lymphocytes # (Manual) Monocytes # (Manual) Eosinophils # (Manual) Basophils # (Manual) PT INR Fibrinogen dRVVT Confirm Interp Factor V Activity POC ABG pH POC ABG pCO2 POC ABG pO2 ABG pO2 ABG HCO3 ABG Base Excess ABG Hemoglobin Oxyhemoglobin Sodium Potassium Chloride Carbon Dioxide BUN Creatinine Glucose POC Glucose 115 H 131 H Lactic Acid Calcium Ionized Calcium Phosphorus Magnesium Direct Bilirubin AST ALT Alkaline Phosphatase Lactate Dehydrogenase Troponin T C-Reactive Protein Total Protein Albumin Prealbumin Triglycerides Cholesterol LDL Cholesterol Direct HDL Cholesterol 25-OH Vitamin D Total PTH Intact Urine pH Urine WBC (Auto) Urine Creatinine Urine Total Protein Fluid Total Protein Vancomycin Trough Rheumatoid Factor Complement C4 Miscellaneous Test Crossmatch 12/27/16 12/28/16 12/28/16 17:16 00:18 04:00 WBC RBC Hgb Hct MCV MCH MCHC RDW Plt Count Lymph % (Auto) [place] % (Auto) Lymph # [place] # Baso # Seg Neutrophils % Seg Neuts % (Manual) Lymphocytes % (Manual) Monocytes % (Manual) Eosinophils % (Manual) Basophils % (Manual) Nucleated RBC % Seg Neutrophils # Seg Neutrophils # Man Lymphocytes # (Manual) Monocytes # (Manual) Eosinophils # (Manual) Basophils # (Manual) PT INR Fibrinogen dRVVT Confirm Interp Factor V Activity POC ABG pH POC ABG pCO2 POC ABG pO2 ABG pO2 ABG HCO3 ABG Base Excess ABG Hemoglobin Oxyhemoglobin Sodium Potassium 3.5 L Chloride Carbon Dioxide BUN 57 H Creatinine Glucose 118 H POC Glucose 136 H 120 H Lactic Acid Calcium 8.3 L Ionized Calcium Phosphorus Magnesium Direct Bilirubin AST ALT Alkaline Phosphatase Lactate Dehydrogenase Troponin T C-Reactive Protein Total Protein Albumin Prealbumin Triglycerides Cholesterol LDL Cholesterol Direct HDL Cholesterol 25-OH Vitamin D Total PTH Intact Urine pH Urine WBC (Auto) Urine Creatinine Urine Total Protein Fluid Total Protein Vancomycin Trough Rheumatoid Factor Complement C4 Miscellaneous Test Crossmatch 12/28/16 12/28/16 12/28/16 04:00 05:11 08:30 WBC 17.0 H RBC 2.58 L Hgb 7.1 L Hct 22.0 L MCV MCH MCHC RDW 17.6 H Plt Count Lymph % (Auto) 12.2 L [place] % (Auto) Lymph # [place] # 1.1 H Baso # Seg Neutrophils % 80.5 H Seg Neuts % (Manual) Lymphocytes % (Manual) Monocytes % (Manual) Eosinophils % (Manual) Basophils % (Manual) Nucleated RBC % Seg Neutrophils # 13.7 H Seg Neutrophils # Man Lymphocytes # (Manual) Monocytes # (Manual) Eosinophils # (Manual) Basophils # (Manual) PT 16.1 H INR 1.23 H Fibrinogen dRVVT Confirm Interp Factor V Activity POC ABG pH POC ABG pCO2 POC ABG pO2 ABG pO2 ABG HCO3 ABG Base Excess ABG Hemoglobin Oxyhemoglobin Sodium Potassium Chloride Carbon Dioxide BUN Creatinine Glucose POC Glucose 122 H Lactic Acid Calcium Ionized Calcium Phosphorus Magnesium Direct Bilirubin AST ALT Alkaline Phosphatase Lactate Dehydrogenase Troponin T C-Reactive Protein Total Protein Albumin Prealbumin Triglycerides Cholesterol LDL Cholesterol Direct HDL Cholesterol 25-OH Vitamin D Total PTH Intact Urine pH Urine WBC (Auto) Urine Creatinine Urine Total Protein Fluid Total Protein Vancomycin Trough Rheumatoid Factor Complement C4 Miscellaneous Test Crossmatch 12/28/16 12/28/16 12/28/16 12:27 16:32 23:46 WBC RBC Hgb Hct MCV MCH MCHC RDW Plt Count Lymph % (Auto) [place] % (Auto) Lymph # [place] # Baso # Seg Neutrophils % Seg Neuts % (Manual) Lymphocytes % (Manual) Monocytes % (Manual) Eosinophils % (Manual) Basophils % (Manual) Nucleated RBC % Seg Neutrophils # Seg Neutrophils # Man Lymphocytes # (Manual) Monocytes # (Manual) Eosinophils # (Manual) Basophils # (Manual) PT INR Fibrinogen dRVVT Confirm Interp Factor V Activity POC ABG pH POC ABG pCO2 POC ABG pO2 ABG pO2 ABG HCO3 ABG Base Excess ABG Hemoglobin Oxyhemoglobin Sodium Potassium Chloride Carbon Dioxide BUN Creatinine Glucose POC Glucose 127 H 117 H 108 H Lactic Acid Calcium Ionized Calcium Phosphorus Magnesium Direct Bilirubin AST ALT Alkaline Phosphatase Lactate Dehydrogenase Troponin T C-Reactive Protein Total Protein Albumin Prealbumin Triglycerides Cholesterol LDL Cholesterol Direct HDL Cholesterol 25-OH Vitamin D Total PTH Intact Urine pH Urine WBC (Auto) Urine Creatinine Urine Total Protein Fluid Total Protein Vancomycin Trough Rheumatoid Factor Complement C4 Miscellaneous Test Crossmatch 12/29/16 12/29/16 12/29/16 05:15 05:15 05:32 WBC RBC Hgb Hct MCV MCH MCHC RDW Plt Count Lymph % (Auto) [place] % (Auto) Lymph # [place] # Baso # Seg Neutrophils % Seg Neuts % (Manual) Lymphocytes % (Manual) Monocytes % (Manual) Eosinophils % (Manual) Basophils % (Manual) Nucleated RBC % Seg Neutrophils # Seg Neutrophils # Man Lymphocytes # (Manual) Monocytes # (Manual) Eosinophils # (Manual) Basophils # (Manual) PT INR Fibrinogen dRVVT Confirm Interp Factor V Activity POC ABG pH POC ABG pCO2 POC ABG pO2 ABG pO2 ABG HCO3 ABG Base Excess ABG Hemoglobin Oxyhemoglobin Sodium Potassium Chloride Carbon Dioxide BUN 74 H Creatinine 1.6 H Glucose 111 H POC Glucose 123 H Lactic Acid Calcium Ionized Calcium Phosphorus Magnesium Direct Bilirubin AST ALT Alkaline Phosphatase Lactate Dehydrogenase Troponin T C-Reactive Protein Total Protein Albumin Prealbumin 0.110 L Triglycerides Cholesterol LDL Cholesterol Direct HDL Cholesterol 25-OH Vitamin D Total PTH Intact Urine pH Urine WBC (Auto) Urine Creatinine Urine Total Protein Fluid Total Protein Vancomycin Trough Rheumatoid Factor Complement C4 Miscellaneous Test Crossmatch 12/29/16 12/29/16 12/29/16 11:43 13:45 14:00 WBC 13.8 H RBC 2.26 L Hgb 6.3 L Hct 20.4 L MCV MCH MCHC RDW 18.3 H Plt Count Lymph % (Auto) [place] % (Auto) Lymph # [place] # 0.9 H Baso # Seg Neutrophils % 78.6 H Seg Neuts % (Manual) Lymphocytes % (Manual) Monocytes % (Manual) Eosinophils % (Manual) Basophils % (Manual) Nucleated RBC % Seg Neutrophils # 10.8 H Seg Neutrophils # Man Lymphocytes # (Manual) Monocytes # (Manual) Eosinophils # (Manual) Basophils # (Manual) PT INR Fibrinogen dRVVT Confirm Interp Factor V Activity POC ABG pH POC ABG pCO2 POC ABG pO2 ABG pO2 ABG HCO3 ABG Base Excess ABG Hemoglobin Oxyhemoglobin Sodium Potassium Chloride Carbon Dioxide BUN Creatinine Glucose POC Glucose 133 H Lactic Acid Calcium Ionized Calcium Phosphorus Magnesium Direct Bilirubin AST ALT Alkaline Phosphatase Lactate Dehydrogenase Troponin T C-Reactive Protein Total Protein Albumin Prealbumin Triglycerides Cholesterol LDL Cholesterol Direct HDL Cholesterol 25-OH Vitamin D Total PTH Intact Urine pH Urine WBC (Auto) Urine Creatinine Urine Total Protein Fluid Total Protein Vancomycin Trough Rheumatoid Factor Complement C4 Miscellaneous Test Crossmatch See Detail 12/29/16 12/29/16 12/29/16 17:03 23:15 23:22 WBC RBC Hgb 7.3 L Hct 22.3 L MCV MCH MCHC RDW Plt Count Lymph % (Auto) [place] % (Auto) Lymph # [place] # Baso # Seg Neutrophils % Seg Neuts % (Manual) Lymphocytes % (Manual) Monocytes % (Manual) Eosinophils % (Manual) Basophils % (Manual) Nucleated RBC % Seg Neutrophils # Seg Neutrophils # Man Lymphocytes # (Manual) Monocytes # (Manual) Eosinophils # (Manual) Basophils # (Manual) PT INR Fibrinogen dRVVT Confirm Interp Factor V Activity POC ABG pH POC ABG pCO2 POC ABG pO2 ABG pO2 ABG HCO3 ABG Base Excess ABG Hemoglobin Oxyhemoglobin Sodium Potassium Chloride Carbon Dioxide BUN Creatinine Glucose POC Glucose 139 H 120 H Lactic Acid Calcium Ionized Calcium Phosphorus Magnesium Direct Bilirubin AST ALT Alkaline Phosphatase Lactate Dehydrogenase Troponin T C-Reactive Protein Total Protein Albumin Prealbumin Triglycerides Cholesterol LDL Cholesterol Direct HDL Cholesterol 25-OH Vitamin D Total PTH Intact Urine pH Urine WBC (Auto) Urine Creatinine Urine Total Protein Fluid Total Protein Vancomycin Trough Rheumatoid Factor Complement C4 Miscellaneous Test Crossmatch 12/30/16 12/30/16 12/30/16 04:20 04:20 05:43 WBC 15.6 H RBC 2.81 L Hgb 8.0 L Hct 24.0 L MCV MCH MCHC RDW 16.9 H Plt Count Lymph % (Auto) [place] % (Auto) Lymph # [place] # 1.0 H Baso # Seg Neutrophils % 76.2 H Seg Neuts % (Manual) Lymphocytes % (Manual) Monocytes % (Manual) Eosinophils % (Manual) Basophils % (Manual) Nucleated RBC % Seg Neutrophils # 11.9 H Seg Neutrophils # Man Lymphocytes # (Manual) Monocytes # (Manual) Eosinophils # (Manual) Basophils # (Manual) PT INR Fibrinogen dRVVT Confirm Interp Factor V Activity POC ABG pH POC ABG pCO2 POC ABG pO2 ABG pO2 ABG HCO3 ABG Base Excess ABG Hemoglobin Oxyhemoglobin Sodium Potassium Chloride Carbon Dioxide BUN 87 H Creatinine 1.8 H Glucose 119 H POC Glucose 115 H Lactic Acid Calcium Ionized Calcium Phosphorus Magnesium Direct Bilirubin AST ALT Alkaline Phosphatase Lactate Dehydrogenase Troponin T C-Reactive Protein Total Protein Albumin Prealbumin Triglycerides Cholesterol LDL Cholesterol Direct HDL Cholesterol 25-OH Vitamin D Total PTH Intact Urine pH Urine WBC (Auto) Urine Creatinine Urine Total Protein Fluid Total Protein Vancomycin Trough Rheumatoid Factor Complement C4 Miscellaneous Test Crossmatch 12/30/16 12/30/16 12/31/16 17:27 23:21 04:00 WBC RBC Hgb Hct MCV MCH MCHC RDW Plt Count Lymph % (Auto) [place] % (Auto) Lymph # [place] # Baso # Seg Neutrophils % Seg Neuts % (Manual) Lymphocytes % (Manual) Monocytes % (Manual) Eosinophils % (Manual) Basophils % (Manual) Nucleated RBC % Seg Neutrophils # Seg Neutrophils # Man Lymphocytes # (Manual) Monocytes # (Manual) Eosinophils # (Manual) Basophils # (Manual) PT INR Fibrinogen dRVVT Confirm Interp Factor V Activity POC ABG pH POC ABG pCO2 POC ABG pO2 ABG pO2 ABG HCO3 ABG Base Excess ABG Hemoglobin Oxyhemoglobin Sodium Potassium Chloride Carbon Dioxide BUN 59 H Creatinine Glucose 298 H POC Glucose 144 H 125 H Lactic Acid Calcium Ionized Calcium Phosphorus Magnesium Direct Bilirubin AST ALT Alkaline Phosphatase Lactate Dehydrogenase Troponin T C-Reactive Protein Total Protein Albumin Prealbumin Triglycerides Cholesterol LDL Cholesterol Direct HDL Cholesterol 25-OH Vitamin D Total PTH Intact Urine pH Urine WBC (Auto) Urine Creatinine Urine Total Protein Fluid Total Protein Vancomycin Trough Rheumatoid Factor Complement C4 Miscellaneous Test Crossmatch 12/31/16 12/31/16 12/31/16 05:11 12:18 18:17 WBC RBC Hgb Hct MCV MCH MCHC RDW Plt Count Lymph % (Auto) [place] % (Auto) Lymph # [place] # Baso # Seg Neutrophils % Seg Neuts % (Manual) Lymphocytes % (Manual) Monocytes % (Manual) Eosinophils % (Manual) Basophils % (Manual) Nucleated RBC % Seg Neutrophils # Seg Neutrophils # Man Lymphocytes # (Manual) Monocytes # (Manual) Eosinophils # (Manual) Basophils # (Manual) PT INR Fibrinogen dRVVT Confirm Interp Factor V Activity POC ABG pH POC ABG pCO2 POC ABG pO2 ABG pO2 ABG HCO3 ABG Base Excess ABG Hemoglobin Oxyhemoglobin Sodium Potassium Chloride Carbon Dioxide BUN Creatinine Glucose POC Glucose 167 H 125 H 133 H Lactic Acid Calcium Ionized Calcium Phosphorus Magnesium Direct Bilirubin AST ALT Alkaline Phosphatase Lactate Dehydrogenase Troponin T C-Reactive Protein Total Protein Albumin Prealbumin Triglycerides Cholesterol LDL Cholesterol Direct HDL Cholesterol 25-OH Vitamin D Total PTH Intact Urine pH Urine WBC (Auto) Urine Creatinine Urine Total Protein Fluid Total Protein Vancomycin Trough Rheumatoid Factor Complement C4 Miscellaneous Test Crossmatch 12/31/16 01/01/17 01/01/17 23:55 05:00 05:12 WBC RBC Hgb Hct MCV MCH MCHC RDW Plt Count Lymph % (Auto) [place] % (Auto) Lymph # [place] # Baso # Seg Neutrophils % Seg Neuts % (Manual) Lymphocytes % (Manual) Monocytes % (Manual) Eosinophils % (Manual) Basophils % (Manual) Nucleated RBC % Seg Neutrophils # Seg Neutrophils # Man Lymphocytes # (Manual) Monocytes # (Manual) Eosinophils # (Manual) Basophils # (Manual) PT INR Fibrinogen dRVVT Confirm Interp Factor V Activity POC ABG pH POC ABG pCO2 POC ABG pO2 ABG pO2 ABG HCO3 ABG Base Excess ABG Hemoglobin Oxyhemoglobin Sodium Potassium Chloride Carbon Dioxide BUN 76 H Creatinine 1.5 H Glucose 109 H POC Glucose 129 H 129 H Lactic Acid Calcium Ionized Calcium Phosphorus Magnesium Direct Bilirubin AST ALT Alkaline Phosphatase 536 H Lactate Dehydrogenase Troponin T C-Reactive Protein Total Protein Albumin 1.5 L Prealbumin Triglycerides Cholesterol LDL Cholesterol Direct HDL Cholesterol 25-OH Vitamin D Total PTH Intact Urine pH Urine WBC (Auto) Urine Creatinine Urine Total Protein Fluid Total Protein Vancomycin Trough Rheumatoid Factor Complement C4 Miscellaneous Test Crossmatch 01/01/17 01/01/17 01/01/17 12:25 17:01 23:32 WBC RBC Hgb Hct MCV MCH MCHC RDW Plt Count Lymph % (Auto) [place] % (Auto) Lymph # [place] # Baso # Seg Neutrophils % Seg Neuts % (Manual) Lymphocytes % (Manual) Monocytes % (Manual) Eosinophils % (Manual) Basophils % (Manual) Nucleated RBC % Seg Neutrophils # Seg Neutrophils # Man Lymphocytes # (Manual) Monocytes # (Manual) Eosinophils # (Manual) Basophils # (Manual) PT INR Fibrinogen dRVVT Confirm Interp Factor V Activity POC ABG pH POC ABG pCO2 POC ABG pO2 ABG pO2 ABG HCO3 ABG Base Excess ABG Hemoglobin Oxyhemoglobin Sodium Potassium Chloride Carbon Dioxide BUN Creatinine Glucose POC Glucose 140 H 142 H 112 H Lactic Acid Calcium Ionized Calcium Phosphorus Magnesium Direct Bilirubin AST ALT Alkaline Phosphatase Lactate Dehydrogenase Troponin T C-Reactive Protein Total Protein Albumin Prealbumin Triglycerides Cholesterol LDL Cholesterol Direct HDL Cholesterol 25-OH Vitamin D Total PTH Intact Urine pH Urine WBC (Auto) Urine Creatinine Urine Total Protein Fluid Total Protein Vancomycin Trough Rheumatoid Factor Complement C4 Miscellaneous Test Crossmatch 01/02/17 01/02/17 01/02/17 04:56 06:00 11:37 WBC RBC Hgb Hct MCV MCH MCHC RDW Plt Count Lymph % (Auto) [place] % (Auto) Lymph # [place] # Baso # Seg Neutrophils % Seg Neuts % (Manual) Lymphocytes % (Manual) Monocytes % (Manual) Eosinophils % (Manual) Basophils % (Manual) Nucleated RBC % Seg Neutrophils # Seg Neutrophils # Man Lymphocytes # (Manual) Monocytes # (Manual) Eosinophils # (Manual) Basophils # (Manual) PT INR Fibrinogen dRVVT Confirm Interp Factor V Activity POC ABG pH POC ABG pCO2 POC ABG pO2 ABG pO2 ABG HCO3 ABG Base Excess ABG Hemoglobin Oxyhemoglobin Sodium Potassium Chloride Carbon Dioxide BUN 88 H Creatinine 1.7 H Glucose 113 H POC Glucose 136 H 200 H Lactic Acid Calcium Ionized Calcium Phosphorus Magnesium Direct Bilirubin AST ALT Alkaline Phosphatase Lactate Dehydrogenase Troponin T C-Reactive Protein Total Protein Albumin Prealbumin Triglycerides Cholesterol LDL Cholesterol Direct HDL Cholesterol 25-OH Vitamin D Total PTH Intact Urine pH Urine WBC (Auto) Urine Creatinine Urine Total Protein Fluid Total Protein Vancomycin Trough Rheumatoid Factor Complement C4 Miscellaneous Test Crossmatch 01/02/17 01/02/17 01/03/17 17:42 22:52 04:54 WBC RBC Hgb Hct MCV MCH MCHC RDW Plt Count Lymph % (Auto) [place] % (Auto) Lymph # [place] # Baso # Seg Neutrophils % Seg Neuts % (Manual) Lymphocytes % (Manual) Monocytes % (Manual) Eosinophils % (Manual) Basophils % (Manual) Nucleated RBC % Seg Neutrophils # Seg Neutrophils # Man Lymphocytes # (Manual) Monocytes # (Manual) Eosinophils # (Manual) Basophils # (Manual) PT INR Fibrinogen dRVVT Confirm Interp Factor V Activity POC ABG pH POC ABG pCO2 POC ABG pO2 ABG pO2 ABG HCO3 ABG Base Excess ABG Hemoglobin Oxyhemoglobin Sodium Potassium Chloride Carbon Dioxide BUN Creatinine Glucose POC Glucose 112 H 133 H 111 H Lactic Acid Calcium Ionized Calcium Phosphorus Magnesium Direct Bilirubin AST ALT Alkaline Phosphatase Lactate Dehydrogenase Troponin T C-Reactive Protein Total Protein Albumin Prealbumin Triglycerides Cholesterol LDL Cholesterol Direct HDL Cholesterol 25-OH Vitamin D Total PTH Intact Urine pH Urine WBC (Auto) Urine Creatinine Urine Total Protein Fluid Total Protein Vancomycin Trough Rheumatoid Factor Complement C4 Miscellaneous Test Crossmatch 01/03/17 01/03/17 01/03/17 05:00 05:00 14:02 WBC 11.2 H RBC 2.56 L Hgb 7.2 L Hct 22.3 L MCV MCH MCHC RDW 17.3 H Plt Count Lymph % (Auto) [place] % (Auto) 10.0 H Lymph # [place] # 1.1 H Baso # Seg Neutrophils % 70.5 H Seg Neuts % (Manual) Lymphocytes % (Manual) Monocytes % (Manual) Eosinophils % (Manual) Basophils % (Manual) Nucleated RBC % Seg Neutrophils # 7.9 H Seg Neutrophils # Man Lymphocytes # (Manual) Monocytes # (Manual) Eosinophils # (Manual) Basophils # (Manual) PT INR Fibrinogen dRVVT Confirm Interp Factor V Activity POC ABG pH POC ABG pCO2 POC ABG pO2 ABG pO2 ABG HCO3 ABG Base Excess ABG Hemoglobin Oxyhemoglobin Sodium Potassium Chloride Carbon Dioxide BUN 60 H Creatinine 1.3 H Glucose 110 H POC Glucose 119 H Lactic Acid Calcium Ionized Calcium Phosphorus Magnesium Direct Bilirubin AST ALT Alkaline Phosphatase Lactate Dehydrogenase Troponin T C-Reactive Protein Total Protein Albumin Prealbumin Triglycerides Cholesterol LDL Cholesterol Direct HDL Cholesterol 25-OH Vitamin D Total PTH Intact Urine pH Urine WBC (Auto) Urine Creatinine Urine Total Protein Fluid Total Protein Vancomycin Trough Rheumatoid Factor Complement C4 Miscellaneous Test Crossmatch 01/03/17 01/03/17 01/04/17 18:13 23:40 05:57 WBC RBC Hgb Hct MCV MCH MCHC RDW Plt Count Lymph % (Auto) [place] % (Auto) Lymph # [place] # Baso # Seg Neutrophils % Seg Neuts % (Manual) Lymphocytes % (Manual) Monocytes % (Manual) Eosinophils % (Manual) Basophils % (Manual) Nucleated RBC % Seg Neutrophils # Seg Neutrophils # Man Lymphocytes # (Manual) Monocytes # (Manual) Eosinophils # (Manual) Basophils # (Manual) PT INR Fibrinogen dRVVT Confirm Interp Factor V Activity POC ABG pH POC ABG pCO2 POC ABG pO2 ABG pO2 ABG HCO3 ABG Base Excess ABG Hemoglobin Oxyhemoglobin Sodium Potassium Chloride Carbon Dioxide BUN Creatinine Glucose POC Glucose 107 H 129 H 111 H Lactic Acid Calcium Ionized Calcium Phosphorus Magnesium Direct Bilirubin AST ALT Alkaline Phosphatase Lactate Dehydrogenase Troponin T C-Reactive Protein Total Protein Albumin Prealbumin Triglycerides Cholesterol LDL Cholesterol Direct HDL Cholesterol 25-OH Vitamin D Total PTH Intact Urine pH Urine WBC (Auto) Urine Creatinine Urine Total Protein Fluid Total Protein Vancomycin Trough Rheumatoid Factor Complement C4 Miscellaneous Test Crossmatch 01/04/17 01/04/17 01/04/17 12:46 15:27 17:11 WBC RBC Hgb Hct MCV MCH MCHC RDW Plt Count Lymph % (Auto) [place] % (Auto) Lymph # [place] # Baso # Seg Neutrophils % Seg Neuts % (Manual) Lymphocytes % (Manual) Monocytes % (Manual) Eosinophils % (Manual) Basophils % (Manual) Nucleated RBC % Seg Neutrophils # Seg Neutrophils # Man Lymphocytes # (Manual) Monocytes # (Manual) Eosinophils # (Manual) Basophils # (Manual) PT INR Fibrinogen dRVVT Confirm Interp Factor V Activity POC ABG pH POC ABG pCO2 POC ABG pO2 ABG pO2 ABG HCO3 ABG Base Excess ABG Hemoglobin Oxyhemoglobin Sodium Potassium Chloride Carbon Dioxide BUN 43 H Creatinine Glucose 124 H POC Glucose 159 H 125 H Lactic Acid Calcium 8.0 L Ionized Calcium Phosphorus 2.10 L Magnesium Direct Bilirubin AST ALT Alkaline Phosphatase Lactate Dehydrogenase Troponin T C-Reactive Protein Total Protein Albumin Prealbumin Triglycerides Cholesterol LDL Cholesterol Direct HDL Cholesterol 25-OH Vitamin D Total PTH Intact Urine pH Urine WBC (Auto) Urine Creatinine Urine Total Protein Fluid Total Protein Vancomycin Trough Rheumatoid Factor Complement C4 Miscellaneous Test Crossmatch 01/04/17 01/05/17 01/05/17 23:31 04:00 05:46 WBC RBC Hgb Hct MCV MCH MCHC RDW Plt Count Lymph % (Auto) [place] % (Auto) Lymph # [place] # Baso # Seg Neutrophils % Seg Neuts % (Manual) Lymphocytes % (Manual) Monocytes % (Manual) Eosinophils % (Manual) Basophils % (Manual) Nucleated RBC % Seg Neutrophils # Seg Neutrophils # Man Lymphocytes # (Manual) Monocytes # (Manual) Eosinophils # (Manual) Basophils # (Manual) PT INR Fibrinogen dRVVT Confirm Interp Factor V Activity POC ABG pH POC ABG pCO2 POC ABG pO2 ABG pO2 ABG HCO3 ABG Base Excess ABG Hemoglobin Oxyhemoglobin Sodium Potassium Chloride Carbon Dioxide BUN 52 H Creatinine 1.3 H Glucose 113 H POC Glucose 123 H 118 H Lactic Acid Calcium Ionized Calcium Phosphorus 2.40 L Magnesium Direct Bilirubin AST ALT Alkaline Phosphatase Lactate Dehydrogenase Troponin T C-Reactive Protein Total Protein Albumin Prealbumin Triglycerides Cholesterol LDL Cholesterol Direct HDL Cholesterol 25-OH Vitamin D Total PTH Intact Urine pH Urine WBC (Auto) Urine Creatinine Urine Total Protein Fluid Total Protein Vancomycin Trough Rheumatoid Factor Complement C4 Miscellaneous Test Crossmatch 01/05/17 01/05/17 01/05/17 11:41 17:48 23:27 WBC RBC Hgb Hct MCV MCH MCHC RDW Plt Count Lymph % (Auto) [place] % (Auto) Lymph # [place] # Baso # Seg Neutrophils % Seg Neuts % (Manual) Lymphocytes % (Manual) Monocytes % (Manual) Eosinophils % (Manual) Basophils % (Manual) Nucleated RBC % Seg Neutrophils # Seg Neutrophils # Man Lymphocytes # (Manual) Monocytes # (Manual) Eosinophils # (Manual) Basophils # (Manual) PT INR Fibrinogen dRVVT Confirm Interp Factor V Activity POC ABG pH POC ABG pCO2 POC ABG pO2 ABG pO2 ABG HCO3 ABG Base Excess ABG Hemoglobin Oxyhemoglobin Sodium Potassium Chloride Carbon Dioxide BUN Creatinine Glucose POC Glucose 163 H 142 H 155 H Lactic Acid Calcium Ionized Calcium Phosphorus Magnesium Direct Bilirubin AST ALT Alkaline Phosphatase Lactate Dehydrogenase Troponin T C-Reactive Protein Total Protein Albumin Prealbumin Triglycerides Cholesterol LDL Cholesterol Direct HDL Cholesterol 25-OH Vitamin D Total PTH Intact Urine pH Urine WBC (Auto) Urine Creatinine Urine Total Protein Fluid Total Protein Vancomycin Trough Rheumatoid Factor Complement C4 Miscellaneous Test Crossmatch 01/06/17 01/06/17 01/06/17 05:20 07:35 11:18 WBC RBC Hgb Hct MCV MCH MCHC RDW Plt Count Lymph % (Auto) [place] % (Auto) Lymph # [place] # Baso # Seg Neutrophils % Seg Neuts % (Manual) Lymphocytes % (Manual) Monocytes % (Manual) Eosinophils % (Manual) Basophils % (Manual) Nucleated RBC % Seg Neutrophils # Seg Neutrophils # Man Lymphocytes # (Manual) Monocytes # (Manual) Eosinophils # (Manual) Basophils # (Manual) PT INR Fibrinogen dRVVT Confirm Interp Factor V Activity POC ABG pH POC ABG pCO2 POC ABG pO2 ABG pO2 ABG HCO3 ABG Base Excess ABG Hemoglobin Oxyhemoglobin Sodium Potassium Chloride Carbon Dioxide BUN 74 H Creatinine 1.6 H Glucose 135 H POC Glucose 108 H 149 H Lactic Acid Calcium Ionized Calcium Phosphorus Magnesium Direct Bilirubin AST ALT Alkaline Phosphatase Lactate Dehydrogenase Troponin T C-Reactive Protein Total Protein Albumin Prealbumin Triglycerides Cholesterol LDL Cholesterol Direct HDL Cholesterol 25-OH Vitamin D Total PTH Intact Urine pH Urine WBC (Auto) Urine Creatinine Urine Total Protein Fluid Total Protein Vancomycin Trough Rheumatoid Factor Complement C4 Miscellaneous Test Crossmatch 01/06/17 01/07/17 01/07/17 17:17 00:23 05:31 WBC RBC Hgb Hct MCV MCH MCHC RDW Plt Count Lymph % (Auto) [place] % (Auto) Lymph # [place] # Baso # Seg Neutrophils % Seg Neuts % (Manual) Lymphocytes % (Manual) Monocytes % (Manual) Eosinophils % (Manual) Basophils % (Manual) Nucleated RBC % Seg Neutrophils # Seg Neutrophils # Man Lymphocytes # (Manual) Monocytes # (Manual) Eosinophils # (Manual) Basophils # (Manual) PT INR Fibrinogen dRVVT Confirm Interp Factor V Activity POC ABG pH POC ABG pCO2 POC ABG pO2 ABG pO2 ABG HCO3 ABG Base Excess ABG Hemoglobin Oxyhemoglobin Sodium Potassium Chloride Carbon Dioxide BUN Creatinine Glucose POC Glucose 146 H 165 H 153 H Lactic Acid Calcium Ionized Calcium Phosphorus Magnesium Direct Bilirubin AST ALT Alkaline Phosphatase Lactate Dehydrogenase Troponin T C-Reactive Protein Total Protein Albumin Prealbumin Triglycerides Cholesterol LDL Cholesterol Direct HDL Cholesterol 25-OH Vitamin D Total PTH Intact Urine pH Urine WBC (Auto) Urine Creatinine Urine Total Protein Fluid Total Protein Vancomycin Trough Rheumatoid Factor Complement C4 Miscellaneous Test Crossmatch 01/07/17 01/07/17 01/07/17 06:00 11:39 17:11 WBC RBC Hgb Hct MCV MCH MCHC RDW Plt Count Lymph % (Auto) [place] % (Auto) Lymph # [place] # Baso # Seg Neutrophils % Seg Neuts % (Manual) Lymphocytes % (Manual) Monocytes % (Manual) Eosinophils % (Manual) Basophils % (Manual) Nucleated RBC % Seg Neutrophils # Seg Neutrophils # Man Lymphocytes # (Manual) Monocytes # (Manual) Eosinophils # (Manual) Basophils # (Manual) PT INR Fibrinogen dRVVT Confirm Interp Factor V Activity POC ABG pH POC ABG pCO2 POC ABG pO2 ABG pO2 ABG HCO3 ABG Base Excess ABG Hemoglobin Oxyhemoglobin Sodium Potassium Chloride Carbon Dioxide BUN 42 H Creatinine Glucose 175 H POC Glucose 163 H 163 H Lactic Acid Calcium Ionized Calcium Phosphorus 2.40 L D Magnesium Direct Bilirubin AST ALT Alkaline Phosphatase Lactate Dehydrogenase Troponin T C-Reactive Protein Total Protein Albumin Prealbumin Triglycerides Cholesterol LDL Cholesterol Direct HDL Cholesterol 25-OH Vitamin D Total PTH Intact Urine pH Urine WBC (Auto) Urine Creatinine Urine Total Protein Fluid Total Protein Vancomycin Trough Rheumatoid Factor Complement C4 Miscellaneous Test Crossmatch 01/07/17 01/08/17 01/08/17 23:40 05:00 05:00 WBC 27.4 H RBC 2.27 L Hgb 6.1 L Hct 20.4 L MCV MCH 27 L MCHC RDW 17.8 H Plt Count Lymph % (Auto) [place] % (Auto) Lymph # [place] # Baso # Seg Neutrophils % Seg Neuts % (Manual) Lymphocytes % (Manual) Monocytes % (Manual) Eosinophils % (Manual) Basophils % (Manual) Nucleated RBC % Seg Neutrophils # Seg Neutrophils # Man Lymphocytes # (Manual) Monocytes # (Manual) Eosinophils # (Manual) Basophils # (Manual) PT INR Fibrinogen dRVVT Confirm Interp Factor V Activity POC ABG pH POC ABG pCO2 POC ABG pO2 ABG pO2 ABG HCO3 ABG Base Excess ABG Hemoglobin Oxyhemoglobin Sodium Potassium Chloride Carbon Dioxide 16 L D BUN 62 H Creatinine 1.6 H D Glucose 103 H POC Glucose 135 H Lactic Acid Calcium Ionized Calcium Phosphorus Magnesium Direct Bilirubin AST ALT Alkaline Phosphatase Lactate Dehydrogenase Troponin T C-Reactive Protein Total Protein Albumin Prealbumin Triglycerides Cholesterol LDL Cholesterol Direct HDL Cholesterol 25-OH Vitamin D Total PTH Intact Urine pH Urine WBC (Auto) Urine Creatinine Urine Total Protein Fluid Total Protein Vancomycin Trough Rheumatoid Factor Complement C4 Miscellaneous Test Crossmatch 01/08/17 01/08/17 01/08/17 05:25 10:37 10:37 WBC RBC Hgb Hct MCV MCH MCHC RDW Plt Count Lymph % (Auto) [place] % (Auto) Lymph # [place] # Baso # Seg Neutrophils % Seg Neuts % (Manual) Lymphocytes % (Manual) Monocytes % (Manual) Eosinophils % (Manual) Basophils % (Manual) Nucleated RBC % Seg Neutrophils # Seg Neutrophils # Man Lymphocytes # (Manual) Monocytes # (Manual) Eosinophils # (Manual) Basophils # (Manual) PT INR Fibrinogen dRVVT Confirm Interp Factor V Activity POC ABG pH POC ABG pCO2 POC ABG pO2 ABG pO2 ABG HCO3 ABG Base Excess ABG Hemoglobin Oxyhemoglobin Sodium Potassium Chloride Carbon Dioxide BUN Creatinine Glucose POC Glucose 106 H Lactic Acid Calcium Ionized Calcium Phosphorus Magnesium Direct Bilirubin AST ALT Alkaline Phosphatase Lactate Dehydrogenase Troponin T C-Reactive Protein 24.40 H Total Protein Albumin Prealbumin Triglycerides Cholesterol LDL Cholesterol Direct HDL Cholesterol 25-OH Vitamin D Total PTH Intact Urine pH Urine WBC (Auto) Urine Creatinine Urine Total Protein Fluid Total Protein Vancomycin Trough Rheumatoid Factor Complement C4 Miscellaneous Test Crossmatch See Detail 01/08/17 01/08/17 01/08/17 10:37 11:33 15:15 WBC RBC Hgb Hct MCV MCH MCHC RDW Plt Count Lymph % (Auto) [place] % (Auto) Lymph # [place] # Baso # Seg Neutrophils % Seg Neuts % (Manual) Lymphocytes % (Manual) Monocytes % (Manual) Eosinophils % (Manual) Basophils % (Manual) Nucleated RBC % Seg Neutrophils # Seg Neutrophils # Man Lymphocytes # (Manual) Monocytes # (Manual) Eosinophils # (Manual) Basophils # (Manual) PT INR Fibrinogen dRVVT Confirm Interp Factor V Activity POC ABG pH POC ABG pCO2 POC ABG pO2 ABG pO2 ABG HCO3 ABG Base Excess ABG Hemoglobin Oxyhemoglobin Sodium Potassium Chloride Carbon Dioxide BUN Creatinine Glucose POC Glucose 157 H Lactic Acid 9.70 H* 9.10 H* Calcium Ionized Calcium Phosphorus Magnesium Direct Bilirubin AST ALT Alkaline Phosphatase Lactate Dehydrogenase Troponin T C-Reactive Protein Total Protein Albumin Prealbumin Triglycerides Cholesterol LDL Cholesterol Direct HDL Cholesterol 25-OH Vitamin D Total PTH Intact Urine pH Urine WBC (Auto) Urine Creatinine Urine Total Protein Fluid Total Protein Vancomycin Trough Rheumatoid Factor Complement C4 Miscellaneous Test Crossmatch 01/08/17 01/08/17 01/09/17 17:19 23:12 04:40 WBC RBC Hgb Hct MCV MCH MCHC RDW Plt Count Lymph % (Auto) [place] % (Auto) Lymph # [place] # Baso # Seg Neutrophils % Seg Neuts % (Manual) Lymphocytes % (Manual) Monocytes % (Manual) Eosinophils % (Manual) Basophils % (Manual) Nucleated RBC % Seg Neutrophils # Seg Neutrophils # Man Lymphocytes # (Manual) Monocytes # (Manual) Eosinophils # (Manual) Basophils # (Manual) PT INR Fibrinogen dRVVT Confirm Interp Factor V Activity POC ABG pH POC ABG pCO2 POC ABG pO2 ABG pO2 ABG HCO3 ABG Base Excess ABG Hemoglobin Oxyhemoglobin Sodium 147 H Potassium Chloride Carbon Dioxide BUN 82 H Creatinine 1.8 H Glucose 137 H POC Glucose 164 H 157 H Lactic Acid Calcium Ionized Calcium Phosphorus Magnesium Direct Bilirubin AST ALT Alkaline Phosphatase Lactate Dehydrogenase Troponin T C-Reactive Protein Total Protein Albumin Prealbumin Triglycerides Cholesterol LDL Cholesterol Direct HDL Cholesterol 25-OH Vitamin D Total PTH Intact Urine pH Urine WBC (Auto) Urine Creatinine Urine Total Protein Fluid Total Protein Vancomycin Trough Rheumatoid Factor Complement C4 Miscellaneous Test Crossmatch 01/09/17 01/09/17 01/09/17 05:42 08:22 10:57 WBC RBC Hgb Hct MCV MCH MCHC RDW Plt Count Lymph % (Auto) [place] % (Auto) Lymph # [place] # Baso # Seg Neutrophils % Seg Neuts % (Manual) Lymphocytes % (Manual) Monocytes % (Manual) Eosinophils % (Manual) Basophils % (Manual) Nucleated RBC % Seg Neutrophils # Seg Neutrophils # Man Lymphocytes # (Manual) Monocytes # (Manual) Eosinophils # (Manual) Basophils # (Manual) PT INR Fibrinogen dRVVT Confirm Interp Factor V Activity POC ABG pH POC ABG pCO2 POC ABG pO2 ABG pO2 ABG HCO3 ABG Base Excess ABG Hemoglobin Oxyhemoglobin Sodium Potassium Chloride Carbon Dioxide BUN Creatinine Glucose POC Glucose 156 H 122 H Lactic Acid 2.30 H* Calcium Ionized Calcium Phosphorus Magnesium Direct Bilirubin AST ALT Alkaline Phosphatase Lactate Dehydrogenase Troponin T C-Reactive Protein Total Protein Albumin Prealbumin Triglycerides Cholesterol LDL Cholesterol Direct HDL Cholesterol 25-OH Vitamin D Total PTH Intact Urine pH Urine WBC (Auto) Urine Creatinine Urine Total Protein Fluid Total Protein Vancomycin Trough Rheumatoid Factor Complement C4 Miscellaneous Test Crossmatch 01/09/17 01/09/17 01/09/17 13:30 17:14 18:45 WBC RBC Hgb Hct MCV MCH MCHC RDW Plt Count Lymph % (Auto) [place] % (Auto) Lymph # [place] # Baso # Seg Neutrophils % Seg Neuts % (Manual) Lymphocytes % (Manual) Monocytes % (Manual) Eosinophils % (Manual) Basophils % (Manual) Nucleated RBC % Seg Neutrophils # Seg Neutrophils # Man Lymphocytes # (Manual) Monocytes # (Manual) Eosinophils # (Manual) Basophils # (Manual) PT INR Fibrinogen dRVVT Confirm Interp Factor V Activity POC ABG pH POC ABG pCO2 POC ABG pO2 ABG pO2 ABG HCO3 ABG Base Excess ABG Hemoglobin Oxyhemoglobin Sodium Potassium Chloride Carbon Dioxide BUN Creatinine Glucose POC Glucose 127 H Lactic Acid Calcium Ionized Calcium Phosphorus Magnesium Direct Bilirubin AST ALT Alkaline Phosphatase Lactate Dehydrogenase Troponin T C-Reactive Protein 24.70 H Total Protein Albumin Prealbumin Triglycerides Cholesterol LDL Cholesterol Direct HDL Cholesterol 25-OH Vitamin D Total PTH Intact Urine pH Urine WBC (Auto) Urine Creatinine Urine Total Protein Fluid Total Protein Vancomycin Trough Rheumatoid Factor Complement C4 Miscellaneous Test Flexitest 1 H Crossmatch 01/10/17 01/10/17 01/10/17 01:21 04:00 04:00 WBC 18.1 H RBC 3.22 L Hgb 8.8 L Hct 27.0 L D MCV MCH 27 L MCHC RDW 17.0 H Plt Count Lymph % (Auto) [place] % (Auto) Lymph # [place] # Baso # Seg Neutrophils % Seg Neuts % (Manual) Lymphocytes % (Manual) Monocytes % (Manual) Eosinophils % (Manual) Basophils % (Manual) Nucleated RBC % Seg Neutrophils # Seg Neutrophils # Man Lymphocytes # (Manual) Monocytes # (Manual) Eosinophils # (Manual) Basophils # (Manual) PT INR Fibrinogen dRVVT Confirm Interp Factor V Activity POC ABG pH POC ABG pCO2 POC ABG pO2 ABG pO2 ABG HCO3 ABG Base Excess ABG Hemoglobin Oxyhemoglobin Sodium Potassium Chloride Carbon Dioxide BUN 59 H Creatinine 1.3 H Glucose 122 H POC Glucose 160 H Lactic Acid Calcium Ionized Calcium Phosphorus Magnesium Direct Bilirubin AST ALT Alkaline Phosphatase Lactate Dehydrogenase Troponin T C-Reactive Protein Total Protein Albumin Prealbumin Triglycerides Cholesterol LDL Cholesterol Direct HDL Cholesterol 25-OH Vitamin D Total PTH Intact Urine pH Urine WBC (Auto) Urine Creatinine Urine Total Protein Fluid Total Protein Vancomycin Trough Rheumatoid Factor Complement C4 Miscellaneous Test Crossmatch 01/10/17 01/10/17 01/10/17 05:36 12:14 17:55 WBC RBC Hgb Hct MCV MCH MCHC RDW Plt Count Lymph % (Auto) [place] % (Auto) Lymph # [place] # Baso # Seg Neutrophils % Seg Neuts % (Manual) Lymphocytes % (Manual) Monocytes % (Manual) Eosinophils % (Manual) Basophils % (Manual) Nucleated RBC % Seg Neutrophils # Seg Neutrophils # Man Lymphocytes # (Manual) Monocytes # (Manual) Eosinophils # (Manual) Basophils # (Manual) PT INR Fibrinogen dRVVT Confirm Interp Factor V Activity POC ABG pH POC ABG pCO2 POC ABG pO2 ABG pO2 ABG HCO3 ABG Base Excess ABG Hemoglobin Oxyhemoglobin Sodium Potassium Chloride Carbon Dioxide BUN Creatinine Glucose POC Glucose 163 H 120 H 144 H Lactic Acid Calcium Ionized Calcium Phosphorus Magnesium Direct Bilirubin AST ALT Alkaline Phosphatase Lactate Dehydrogenase Troponin T C-Reactive Protein Total Protein Albumin Prealbumin Triglycerides Cholesterol LDL Cholesterol Direct HDL Cholesterol 25-OH Vitamin D Total PTH Intact Urine pH Urine WBC (Auto) Urine Creatinine Urine Total Protein Fluid Total Protein Vancomycin Trough Rheumatoid Factor Complement C4 Miscellaneous Test Crossmatch 01/11/17 01/11/17 01/11/17 00:09 04:00 04:00 WBC 15.8 H RBC 3.04 L Hgb 8.2 L Hct 25.5 L MCV MCH 27 L MCHC RDW 17.3 H Plt Count Lymph % (Auto) [place] % (Auto) Lymph # [place] # Baso # Seg Neutrophils % Seg Neuts % (Manual) Lymphocytes % (Manual) Monocytes % (Manual) Eosinophils % (Manual) Basophils % (Manual) Nucleated RBC % Seg Neutrophils # Seg Neutrophils # Man Lymphocytes # (Manual) Monocytes # (Manual) Eosinophils # (Manual) Basophils # (Manual) PT INR Fibrinogen dRVVT Confirm Interp Factor V Activity POC ABG pH POC ABG pCO2 POC ABG pO2 ABG pO2 ABG HCO3 ABG Base Excess ABG Hemoglobin Oxyhemoglobin Sodium Potassium Chloride Carbon Dioxide BUN 78 H Creatinine 1.6 H Glucose 109 H POC Glucose 122 H Lactic Acid Calcium Ionized Calcium Phosphorus Magnesium Direct Bilirubin AST ALT Alkaline Phosphatase Lactate Dehydrogenase Troponin T C-Reactive Protein Total Protein Albumin Prealbumin Triglycerides Cholesterol LDL Cholesterol Direct HDL Cholesterol 25-OH Vitamin D Total PTH Intact Urine pH Urine WBC (Auto) Urine Creatinine Urine Total Protein Fluid Total Protein Vancomycin Trough Rheumatoid Factor Complement C4 Miscellaneous Test Crossmatch 01/11/17 01/11/17 01/11/17 12:46 18:23 23:42 WBC RBC Hgb Hct MCV MCH MCHC RDW Plt Count Lymph % (Auto) [place] % (Auto) Lymph # [place] # Baso # Seg Neutrophils % Seg Neuts % (Manual) Lymphocytes % (Manual) Monocytes % (Manual) Eosinophils % (Manual) Basophils % (Manual) Nucleated RBC % Seg Neutrophils # Seg Neutrophils # Man Lymphocytes # (Manual) Monocytes # (Manual) Eosinophils # (Manual) Basophils # (Manual) PT INR Fibrinogen dRVVT Confirm Interp Factor V Activity POC ABG pH POC ABG pCO2 POC ABG pO2 ABG pO2 ABG HCO3 ABG Base Excess ABG Hemoglobin Oxyhemoglobin Sodium Potassium Chloride Carbon Dioxide BUN Creatinine Glucose POC Glucose 148 H 125 H 124 H Lactic Acid Calcium Ionized Calcium Phosphorus Magnesium Direct Bilirubin AST ALT Alkaline Phosphatase Lactate Dehydrogenase Troponin T C-Reactive Protein Total Protein Albumin Prealbumin Triglycerides Cholesterol LDL Cholesterol Direct HDL Cholesterol 25-OH Vitamin D Total PTH Intact Urine pH Urine WBC (Auto) Urine Creatinine Urine Total Protein Fluid Total Protein Vancomycin Trough Rheumatoid Factor Complement C4 Miscellaneous Test Crossmatch 01/12/17 01/12/17 01/12/17 04:30 04:30 05:47 WBC 15.8 H RBC 3.31 L Hgb 8.9 L Hct 27.9 L MCV MCH 27 L MCHC RDW 17.4 H Plt Count Lymph % (Auto) [place] % (Auto) Lymph # [place] # Baso # Seg Neutrophils % Seg Neuts % (Manual) Lymphocytes % (Manual) Monocytes % (Manual) Eosinophils % (Manual) Basophils % (Manual) Nucleated RBC % Seg Neutrophils # Seg Neutrophils # Man Lymphocytes # (Manual) Monocytes # (Manual) Eosinophils # (Manual) Basophils # (Manual) PT INR Fibrinogen dRVVT Confirm Interp Factor V Activity POC ABG pH POC ABG pCO2 POC ABG pO2 ABG pO2 ABG HCO3 ABG Base Excess ABG Hemoglobin Oxyhemoglobin Sodium Potassium Chloride Carbon Dioxide BUN 57 H Creatinine Glucose 121 H POC Glucose 110 H Lactic Acid Calcium Ionized Calcium Phosphorus 2.10 L Magnesium Direct Bilirubin AST ALT Alkaline Phosphatase Lactate Dehydrogenase Troponin T C-Reactive Protein Total Protein Albumin Prealbumin Triglycerides Cholesterol LDL Cholesterol Direct HDL Cholesterol 25-OH Vitamin D Total PTH Intact Urine pH Urine WBC (Auto) Urine Creatinine Urine Total Protein Fluid Total Protein Vancomycin Trough Rheumatoid Factor Complement C4 Miscellaneous Test Crossmatch 01/12/17 01/12/17 01/12/17 11:35 17:45 23:14 WBC RBC Hgb Hct MCV MCH MCHC RDW Plt Count Lymph % (Auto) [place] % (Auto) Lymph # [place] # Baso # Seg Neutrophils % Seg Neuts % (Manual) Lymphocytes % (Manual) Monocytes % (Manual) Eosinophils % (Manual) Basophils % (Manual) Nucleated RBC % Seg Neutrophils # Seg Neutrophils # Man Lymphocytes # (Manual) Monocytes # (Manual) Eosinophils # (Manual) Basophils # (Manual) PT INR Fibrinogen dRVVT Confirm Interp Factor V Activity POC ABG pH POC ABG pCO2 POC ABG pO2 ABG pO2 ABG HCO3 ABG Base Excess ABG Hemoglobin Oxyhemoglobin Sodium Potassium Chloride Carbon Dioxide BUN Creatinine Glucose POC Glucose 146 H 117 H 123 H Lactic Acid Calcium Ionized Calcium Phosphorus Magnesium Direct Bilirubin AST ALT Alkaline Phosphatase Lactate Dehydrogenase Troponin T C-Reactive Protein Total Protein Albumin Prealbumin Triglycerides Cholesterol LDL Cholesterol Direct HDL Cholesterol 25-OH Vitamin D Total PTH Intact Urine pH Urine WBC (Auto) Urine Creatinine Urine Total Protein Fluid Total Protein Vancomycin Trough Rheumatoid Factor Complement C4 Miscellaneous Test Crossmatch 01/13/17 01/13/17 01/13/17 05:32 06:00 12:10 WBC RBC Hgb Hct MCV MCH MCHC RDW Plt Count Lymph % (Auto) [place] % (Auto) Lymph # [place] # Baso # Seg Neutrophils % Seg Neuts % (Manual) Lymphocytes % (Manual) Monocytes % (Manual) Eosinophils % (Manual) Basophils % (Manual) Nucleated RBC % Seg Neutrophils # Seg Neutrophils # Man Lymphocytes # (Manual) Monocytes # (Manual) Eosinophils # (Manual) Basophils # (Manual) PT INR Fibrinogen dRVVT Confirm Interp Factor V Activity POC ABG pH POC ABG pCO2 POC ABG pO2 ABG pO2 ABG HCO3 ABG Base Excess ABG Hemoglobin Oxyhemoglobin Sodium Potassium Chloride Carbon Dioxide BUN 80 H Creatinine 1.4 H Glucose 106 H POC Glucose 106 H Lactic Acid Calcium Ionized Calcium Phosphorus Magnesium Direct Bilirubin AST ALT Alkaline Phosphatase Lactate Dehydrogenase Troponin T C-Reactive Protein Total Protein Albumin Prealbumin Triglycerides Cholesterol LDL Cholesterol Direct HDL Cholesterol 25-OH Vitamin D Total PTH Intact Urine pH Urine WBC (Auto) Urine Creatinine Urine Total Protein Fluid Total Protein 3.0 L Vancomycin Trough Rheumatoid Factor Complement C4 Miscellaneous Test Crossmatch 01/13/17 01/13/17 01/13/17 12:17 15:50 17:30 WBC RBC Hgb Hct MCV MCH MCHC RDW Plt Count Lymph % (Auto) [place] % (Auto) Lymph # [place] # Baso # Seg Neutrophils % Seg Neuts % (Manual) Lymphocytes % (Manual) Monocytes % (Manual) Eosinophils % (Manual) Basophils % (Manual) Nucleated RBC % Seg Neutrophils # Seg Neutrophils # Man Lymphocytes # (Manual) Monocytes # (Manual) Eosinophils # (Manual) Basophils # (Manual) PT 15.4 H INR 1.16 H Fibrinogen dRVVT Confirm Interp Factor V Activity POC ABG pH POC ABG pCO2 POC ABG pO2 ABG pO2 ABG HCO3 ABG Base Excess ABG Hemoglobin Oxyhemoglobin Sodium Potassium Chloride Carbon Dioxide BUN Creatinine Glucose POC Glucose 168 H 110 H Lactic Acid Calcium Ionized Calcium Phosphorus Magnesium Direct Bilirubin AST ALT Alkaline Phosphatase Lactate Dehydrogenase Troponin T C-Reactive Protein Total Protein Albumin Prealbumin Triglycerides Cholesterol LDL Cholesterol Direct HDL Cholesterol 25-OH Vitamin D Total PTH Intact Urine pH Urine WBC (Auto) Urine Creatinine Urine Total Protein Fluid Total Protein Vancomycin Trough Rheumatoid Factor Complement C4 Miscellaneous Test Crossmatch 01/13/17 01/14/17 01/14/17 23:42 05:24 05:30 WBC RBC Hgb Hct MCV MCH MCHC RDW Plt Count Lymph % (Auto) [place] % (Auto) Lymph # [place] # Baso # Seg Neutrophils % Seg Neuts % (Manual) Lymphocytes % (Manual) Monocytes % (Manual) Eosinophils % (Manual) Basophils % (Manual) Nucleated RBC % Seg Neutrophils # Seg Neutrophils # Man Lymphocytes # (Manual) Monocytes # (Manual) Eosinophils # (Manual) Basophils # (Manual) PT INR Fibrinogen dRVVT Confirm Interp Factor V Activity POC ABG pH POC ABG pCO2 POC ABG pO2 ABG pO2 ABG HCO3 ABG Base Excess ABG Hemoglobin Oxyhemoglobin Sodium Potassium Chloride Carbon Dioxide BUN 58 H Creatinine Glucose 114 H POC Glucose 155 H 121 H Lactic Acid Calcium Ionized Calcium Phosphorus Magnesium Direct Bilirubin AST ALT Alkaline Phosphatase Lactate Dehydrogenase Troponin T C-Reactive Protein Total Protein Albumin Prealbumin Triglycerides Cholesterol LDL Cholesterol Direct HDL Cholesterol 25-OH Vitamin D Total PTH Intact Urine pH Urine WBC (Auto) Urine Creatinine Urine Total Protein Fluid Total Protein Vancomycin Trough Rheumatoid Factor Complement C4 Miscellaneous Test Crossmatch 01/14/17 01/14/17 01/15/17 12:48 17:36 00:15 WBC RBC Hgb Hct MCV MCH MCHC RDW Plt Count Lymph % (Auto) [place] % (Auto) Lymph # [place] # Baso # Seg Neutrophils % Seg Neuts % (Manual) Lymphocytes % (Manual) Monocytes % (Manual) Eosinophils % (Manual) Basophils % (Manual) Nucleated RBC % Seg Neutrophils # Seg Neutrophils # Man Lymphocytes # (Manual) Monocytes # (Manual) Eosinophils # (Manual) Basophils # (Manual) PT INR Fibrinogen dRVVT Confirm Interp Factor V Activity POC ABG pH POC ABG pCO2 POC ABG pO2 ABG pO2 ABG HCO3 ABG Base Excess ABG Hemoglobin Oxyhemoglobin Sodium Potassium Chloride Carbon Dioxide BUN Creatinine Glucose POC Glucose 130 H 135 H 132 H Lactic Acid Calcium Ionized Calcium Phosphorus Magnesium Direct Bilirubin AST ALT Alkaline Phosphatase Lactate Dehydrogenase Troponin T C-Reactive Protein Total Protein Albumin Prealbumin Triglycerides Cholesterol LDL Cholesterol Direct HDL Cholesterol 25-OH Vitamin D Total PTH Intact Urine pH Urine WBC (Auto) Urine Creatinine Urine Total Protein Fluid Total Protein Vancomycin Trough Rheumatoid Factor Complement C4 Miscellaneous Test Crossmatch 01/15/17 01/15/17 01/15/17 05:01 11:55 12:45 WBC 16.2 H RBC 3.00 L Hgb 8.1 L Hct 25.4 L MCV MCH 27 L MCHC RDW 17.6 H Plt Count Lymph % (Auto) 11.7 L [place] % (Auto) 7.8 H Lymph # [place] # 1.3 H Baso # Seg Neutrophils % 80.1 H Seg Neuts % (Manual) Lymphocytes % (Manual) Monocytes % (Manual) Eosinophils % (Manual) Basophils % (Manual) Nucleated RBC % Seg Neutrophils # 13.0 H Seg Neutrophils # Man Lymphocytes # (Manual) Monocytes # (Manual) Eosinophils # (Manual) Basophils # (Manual) PT INR Fibrinogen dRVVT Confirm Interp Factor V Activity POC ABG pH POC ABG pCO2 POC ABG pO2 ABG pO2 ABG HCO3 ABG Base Excess ABG Hemoglobin Oxyhemoglobin Sodium Potassium Chloride Carbon Dioxide BUN Creatinine Glucose POC Glucose 126 H 125 H Lactic Acid Calcium Ionized Calcium Phosphorus Magnesium Direct Bilirubin AST ALT Alkaline Phosphatase Lactate Dehydrogenase Troponin T C-Reactive Protein Total Protein Albumin Prealbumin Triglycerides Cholesterol LDL Cholesterol Direct HDL Cholesterol 25-OH Vitamin D Total PTH Intact Urine pH Urine WBC (Auto) Urine Creatinine Urine Total Protein Fluid Total Protein Vancomycin Trough Rheumatoid Factor Complement C4 Miscellaneous Test Crossmatch 01/15/17 01/15/17 01/15/17 12:45 17:31 23:39 WBC RBC Hgb Hct MCV MCH MCHC RDW Plt Count Lymph % (Auto) [place] % (Auto) Lymph # [place] # Baso # Seg Neutrophils % Seg Neuts % (Manual) Lymphocytes % (Manual) Monocytes % (Manual) Eosinophils % (Manual) Basophils % (Manual) Nucleated RBC % Seg Neutrophils # Seg Neutrophils # Man Lymphocytes # (Manual) Monocytes # (Manual) Eosinophils # (Manual) Basophils # (Manual) PT INR Fibrinogen dRVVT Confirm Interp Factor V Activity POC ABG pH POC ABG pCO2 POC ABG pO2 ABG pO2 ABG HCO3 ABG Base Excess ABG Hemoglobin Oxyhemoglobin Sodium 136 L Potassium Chloride Carbon Dioxide BUN 87 H Creatinine 1.7 H Glucose 108 H POC Glucose 129 H 112 H Lactic Acid Calcium Ionized Calcium Phosphorus Magnesium Direct Bilirubin AST ALT Alkaline Phosphatase Lactate Dehydrogenase Troponin T C-Reactive Protein Total Protein Albumin Prealbumin Triglycerides Cholesterol LDL Cholesterol Direct HDL Cholesterol 25-OH Vitamin D Total PTH Intact Urine pH Urine WBC (Auto) Urine Creatinine Urine Total Protein Fluid Total Protein Vancomycin Trough Rheumatoid Factor Complement C4 Miscellaneous Test Crossmatch 01/16/17 01/16/17 01/16/17 05:23 11:42 12:32 WBC RBC Hgb Hct MCV MCH MCHC RDW Plt Count Lymph % (Auto) [place] % (Auto) Lymph # [place] # Baso # Seg Neutrophils % Seg Neuts % (Manual) Lymphocytes % (Manual) Monocytes % (Manual) Eosinophils % (Manual) Basophils % (Manual) Nucleated RBC % Seg Neutrophils # Seg Neutrophils # Man Lymphocytes # (Manual) Monocytes # (Manual) Eosinophils # (Manual) Basophils # (Manual) PT INR Fibrinogen dRVVT Confirm Interp Factor V Activity POC ABG pH 7.499 H POC ABG pCO2 30.9 L POC ABG pO2 51 L ABG pO2 ABG HCO3 ABG Base Excess ABG Hemoglobin Oxyhemoglobin Sodium Potassium Chloride Carbon Dioxide BUN Creatinine Glucose POC Glucose 118 H 133 H Lactic Acid Calcium Ionized Calcium Phosphorus Magnesium Direct Bilirubin AST ALT Alkaline Phosphatase Lactate Dehydrogenase Troponin T C-Reactive Protein Total Protein Albumin Prealbumin Triglycerides Cholesterol LDL Cholesterol Direct HDL Cholesterol 25-OH Vitamin D Total PTH Intact Urine pH Urine WBC (Auto) Urine Creatinine Urine Total Protein Fluid Total Protein Vancomycin Trough Rheumatoid Factor Complement C4 Miscellaneous Test Crossmatch 01/16/17 01/16/17 01/16/17 17:52 23:57 Unknown WBC RBC Hgb Hct MCV MCH MCHC RDW Plt Count Lymph % (Auto) [place] % (Auto) Lymph # [place] # Baso # Seg Neutrophils % Seg Neuts % (Manual) Lymphocytes % (Manual) Monocytes % (Manual) Eosinophils % (Manual) Basophils % (Manual) Nucleated RBC % Seg Neutrophils # Seg Neutrophils # Man Lymphocytes # (Manual) Monocytes # (Manual) Eosinophils # (Manual) Basophils # (Manual) PT INR Fibrinogen dRVVT Confirm Interp Factor V Activity POC ABG pH POC ABG pCO2 POC ABG pO2 ABG pO2 ABG HCO3 ABG Base Excess ABG Hemoglobin Oxyhemoglobin Sodium 135 L Potassium Chloride Carbon Dioxide BUN 101 H Creatinine 1.8 H Glucose 117 H POC Glucose 130 H 143 H Lactic Acid Calcium Ionized Calcium Phosphorus 5.80 H Magnesium Direct Bilirubin AST ALT Alkaline Phosphatase Lactate Dehydrogenase Troponin T C-Reactive Protein Total Protein Albumin Prealbumin Triglycerides Cholesterol LDL Cholesterol Direct HDL Cholesterol 25-OH Vitamin D Total PTH Intact Urine pH Urine WBC (Auto) Urine Creatinine Urine Total Protein Fluid Total Protein Vancomycin Trough Rheumatoid Factor Complement C4 Miscellaneous Test Crossmatch 01/17/17 01/17/17 01/17/17 05:30 05:46 11:49 WBC RBC Hgb Hct MCV MCH MCHC RDW Plt Count Lymph % (Auto) [place] % (Auto) Lymph # [place] # Baso # Seg Neutrophils % Seg Neuts % (Manual) Lymphocytes % (Manual) Monocytes % (Manual) Eosinophils % (Manual) Basophils % (Manual) Nucleated RBC % Seg Neutrophils # Seg Neutrophils # Man Lymphocytes # (Manual) Monocytes # (Manual) Eosinophils # (Manual) Basophils # (Manual) PT INR Fibrinogen dRVVT Confirm Interp Factor V Activity POC ABG pH POC ABG pCO2 POC ABG pO2 ABG pO2 ABG HCO3 ABG Base Excess ABG Hemoglobin Oxyhemoglobin Sodium 134 L Potassium Chloride 95.8 L Carbon Dioxide BUN 66 H Creatinine 1.3 H Glucose 138 H POC Glucose 147 H 124 H Lactic Acid Calcium Ionized Calcium Phosphorus Magnesium Direct Bilirubin AST ALT Alkaline Phosphatase 254 H Lactate Dehydrogenase Troponin T C-Reactive Protein Total Protein Albumin 1.3 L Prealbumin Triglycerides Cholesterol LDL Cholesterol Direct HDL Cholesterol 25-OH Vitamin D Total PTH Intact Urine pH Urine WBC (Auto) Urine Creatinine Urine Total Protein Fluid Total Protein Vancomycin Trough Rheumatoid Factor Complement C4 Miscellaneous Test Crossmatch 01/17/17 01/17/17 01/18/17 17:30 23:41 05:15 WBC RBC Hgb Hct MCV MCH MCHC RDW Plt Count Lymph % (Auto) [place] % (Auto) Lymph # [place] # Baso # Seg Neutrophils % Seg Neuts % (Manual) Lymphocytes % (Manual) Monocytes % (Manual) Eosinophils % (Manual) Basophils % (Manual) Nucleated RBC % Seg Neutrophils # Seg Neutrophils # Man Lymphocytes # (Manual) Monocytes # (Manual) Eosinophils # (Manual) Basophils # (Manual) PT INR Fibrinogen dRVVT Confirm Interp Factor V Activity POC ABG pH POC ABG pCO2 POC ABG pO2 ABG pO2 ABG HCO3 ABG Base Excess ABG Hemoglobin Oxyhemoglobin Sodium Potassium Chloride Carbon Dioxide BUN 89 H Creatinine 1.7 H Glucose 118 H POC Glucose 137 H 119 H Lactic Acid Calcium Ionized Calcium Phosphorus Magnesium Direct Bilirubin AST ALT Alkaline Phosphatase Lactate Dehydrogenase Troponin T C-Reactive Protein Total Protein Albumin Prealbumin Triglycerides Cholesterol LDL Cholesterol Direct HDL Cholesterol 25-OH Vitamin D Total PTH Intact Urine pH Urine WBC (Auto) Urine Creatinine Urine Total Protein Fluid Total Protein Vancomycin Trough Rheumatoid Factor Complement C4 Miscellaneous Test Crossmatch 01/18/17 01/18/17 01/18/17 05:19 12:16 18:11 WBC RBC Hgb Hct MCV MCH MCHC RDW Plt Count Lymph % (Auto) [place] % (Auto) Lymph # [place] # Baso # Seg Neutrophils % Seg Neuts % (Manual) Lymphocytes % (Manual) Monocytes % (Manual) Eosinophils % (Manual) Basophils % (Manual) Nucleated RBC % Seg Neutrophils # Seg Neutrophils # Man Lymphocytes # (Manual) Monocytes # (Manual) Eosinophils # (Manual) Basophils # (Manual) PT INR Fibrinogen dRVVT Confirm Interp Factor V Activity POC ABG pH POC ABG pCO2 POC ABG pO2 ABG pO2 ABG HCO3 ABG Base Excess ABG Hemoglobin Oxyhemoglobin Sodium Potassium Chloride Carbon Dioxide BUN Creatinine Glucose POC Glucose 134 H 188 H 113 H Lactic Acid Calcium Ionized Calcium Phosphorus Magnesium Direct Bilirubin AST ALT Alkaline Phosphatase Lactate Dehydrogenase Troponin T C-Reactive Protein Total Protein Albumin Prealbumin Triglycerides Cholesterol LDL Cholesterol Direct HDL Cholesterol 25-OH Vitamin D Total PTH Intact Urine pH Urine WBC (Auto) Urine Creatinine Urine Total Protein Fluid Total Protein Vancomycin Trough Rheumatoid Factor Complement C4 Miscellaneous Test Crossmatch 01/19/17 01/19/17 01/19/17 00:00 05:30 05:36 WBC RBC Hgb Hct MCV MCH MCHC RDW Plt Count Lymph % (Auto) [place] % (Auto) Lymph # [place] # Baso # Seg Neutrophils % Seg Neuts % (Manual) Lymphocytes % (Manual) Monocytes % (Manual) Eosinophils % (Manual) Basophils % (Manual) Nucleated RBC % Seg Neutrophils # Seg Neutrophils # Man Lymphocytes # (Manual) Monocytes # (Manual) Eosinophils # (Manual) Basophils # (Manual) PT INR Fibrinogen dRVVT Confirm Interp Factor V Activity POC ABG pH POC ABG pCO2 POC ABG pO2 ABG pO2 ABG HCO3 ABG Base Excess ABG Hemoglobin Oxyhemoglobin Sodium Potassium Chloride Carbon Dioxide BUN 70 H Creatinine 1.5 H Glucose 121 H POC Glucose 137 H 155 H Lactic Acid Calcium Ionized Calcium Phosphorus 2.10 L D Magnesium Direct Bilirubin AST ALT Alkaline Phosphatase Lactate Dehydrogenase Troponin T C-Reactive Protein Total Protein Albumin Prealbumin Triglycerides Cholesterol LDL Cholesterol Direct HDL Cholesterol 25-OH Vitamin D Total PTH Intact Urine pH Urine WBC (Auto) Urine Creatinine Urine Total Protein Fluid Total Protein Vancomycin Trough Rheumatoid Factor Complement C4 Miscellaneous Test Crossmatch 01/19/17 01/19/17 01/19/17 11:59 15:32 17:57 WBC RBC Hgb Hct MCV MCH MCHC RDW Plt Count Lymph % (Auto) [place] % (Auto) Lymph # [place] # Baso # Seg Neutrophils % Seg Neuts % (Manual) Lymphocytes % (Manual) Monocytes % (Manual) Eosinophils % (Manual) Basophils % (Manual) Nucleated RBC % Seg Neutrophils # Seg Neutrophils # Man Lymphocytes # (Manual) Monocytes # (Manual) Eosinophils # (Manual) Basophils # (Manual) PT INR Fibrinogen dRVVT Confirm Interp Factor V Activity POC ABG pH POC ABG pCO2 33.1 L POC ABG pO2 76 L ABG pO2 ABG HCO3 ABG Base Excess ABG Hemoglobin Oxyhemoglobin Sodium Potassium Chloride Carbon Dioxide BUN Creatinine Glucose POC Glucose 156 H 129 H Lactic Acid Calcium Ionized Calcium Phosphorus Magnesium Direct Bilirubin AST ALT Alkaline Phosphatase Lactate Dehydrogenase Troponin T C-Reactive Protein Total Protein Albumin Prealbumin Triglycerides Cholesterol LDL Cholesterol Direct HDL Cholesterol 25-OH Vitamin D Total PTH Intact Urine pH Urine WBC (Auto) Urine Creatinine Urine Total Protein Fluid Total Protein Vancomycin Trough Rheumatoid Factor Complement C4 Miscellaneous Test Crossmatch 01/19/17 01/20/17 01/20/17 23:49 04:00 05:21 WBC RBC Hgb Hct MCV MCH MCHC RDW Plt Count Lymph % (Auto) [place] % (Auto) Lymph # [place] # Baso # Seg Neutrophils % Seg Neuts % (Manual) Lymphocytes % (Manual) Monocytes % (Manual) Eosinophils % (Manual) Basophils % (Manual) Nucleated RBC % Seg Neutrophils # Seg Neutrophils # Man Lymphocytes # (Manual) Monocytes # (Manual) Eosinophils # (Manual) Basophils # (Manual) PT INR Fibrinogen dRVVT Confirm Interp Factor V Activity POC ABG pH POC ABG pCO2 POC ABG pO2 ABG pO2 ABG HCO3 ABG Base Excess ABG Hemoglobin Oxyhemoglobin Sodium Potassium Chloride Carbon Dioxide BUN 96 H Creatinine 1.9 H Glucose 106 H POC Glucose 125 H 130 H Lactic Acid Calcium Ionized Calcium Phosphorus 2.40 L Magnesium Direct Bilirubin AST ALT Alkaline Phosphatase Lactate Dehydrogenase Troponin T C-Reactive Protein Total Protein Albumin Prealbumin Triglycerides Cholesterol LDL Cholesterol Direct HDL Cholesterol 25-OH Vitamin D Total PTH Intact Urine pH Urine WBC (Auto) Urine Creatinine Urine Total Protein Fluid Total Protein Vancomycin Trough Rheumatoid Factor Complement C4 Miscellaneous Test Crossmatch 01/20/17 01/20/17 01/20/17 11:58 12:17 17:26 WBC RBC Hgb Hct MCV MCH MCHC RDW Plt Count Lymph % (Auto) [place] % (Auto) Lymph # [place] # Baso # Seg Neutrophils % Seg Neuts % (Manual) Lymphocytes % (Manual) Monocytes % (Manual) Eosinophils % (Manual) Basophils % (Manual) Nucleated RBC % Seg Neutrophils # Seg Neutrophils # Man Lymphocytes # (Manual) Monocytes # (Manual) Eosinophils # (Manual) Basophils # (Manual) PT INR Fibrinogen dRVVT Confirm Interp Factor V Activity POC ABG pH POC ABG pCO2 POC ABG pO2 70 L ABG pO2 ABG HCO3 ABG Base Excess ABG Hemoglobin Oxyhemoglobin Sodium Potassium Chloride Carbon Dioxide BUN Creatinine Glucose POC Glucose 118 H 154 H Lactic Acid Calcium Ionized Calcium Phosphorus Magnesium Direct Bilirubin AST ALT Alkaline Phosphatase Lactate Dehydrogenase Troponin T C-Reactive Protein Total Protein Albumin Prealbumin Triglycerides Cholesterol LDL Cholesterol Direct HDL Cholesterol 25-OH Vitamin D Total PTH Intact Urine pH Urine WBC (Auto) Urine Creatinine Urine Total Protein Fluid Total Protein Vancomycin Trough Rheumatoid Factor Complement C4 Miscellaneous Test Crossmatch 01/21/17 01/21/17 01/21/17 04:00 04:56 11:46 WBC RBC Hgb Hct MCV MCH MCHC RDW Plt Count Lymph % (Auto) [place] % (Auto) Lymph # [place] # Baso # Seg Neutrophils % Seg Neuts % (Manual) Lymphocytes % (Manual) Monocytes % (Manual) Eosinophils % (Manual) Basophils % (Manual) Nucleated RBC % Seg Neutrophils # Seg Neutrophils # Man Lymphocytes # (Manual) Monocytes # (Manual) Eosinophils # (Manual) Basophils # (Manual) PT INR Fibrinogen dRVVT Confirm Interp Factor V Activity POC ABG pH POC ABG pCO2 POC ABG pO2 ABG pO2 ABG HCO3 ABG Base Excess ABG Hemoglobin Oxyhemoglobin Sodium Potassium 3.5 L Chloride 97.4 L Carbon Dioxide BUN 66 H Creatinine 1.4 H Glucose POC Glucose 116 H 106 H Lactic Acid Calcium Ionized Calcium Phosphorus 2.10 L Magnesium Direct Bilirubin AST ALT Alkaline Phosphatase Lactate Dehydrogenase Troponin T C-Reactive Protein Total Protein Albumin Prealbumin Triglycerides Cholesterol LDL Cholesterol Direct HDL Cholesterol 25-OH Vitamin D Total PTH Intact Urine pH Urine WBC (Auto) Urine Creatinine Urine Total Protein Fluid Total Protein Vancomycin Trough Rheumatoid Factor Complement C4 Miscellaneous Test Crossmatch 01/21/17 01/21/17 01/22/17 17:25 23:49 05:35 WBC RBC Hgb Hct MCV MCH MCHC RDW Plt Count Lymph % (Auto) [place] % (Auto) Lymph # [place] # Baso # Seg Neutrophils % Seg Neuts % (Manual) Lymphocytes % (Manual) Monocytes % (Manual) Eosinophils % (Manual) Basophils % (Manual) Nucleated RBC % Seg Neutrophils # Seg Neutrophils # Man Lymphocytes # (Manual) Monocytes # (Manual) Eosinophils # (Manual) Basophils # (Manual) PT INR Fibrinogen dRVVT Confirm Interp Factor V Activity POC ABG pH POC ABG pCO2 POC ABG pO2 ABG pO2 ABG HCO3 ABG Base Excess ABG Hemoglobin Oxyhemoglobin Sodium Potassium Chloride Carbon Dioxide BUN Creatinine Glucose POC Glucose 106 H 133 H 107 H Lactic Acid Calcium Ionized Calcium Phosphorus Magnesium Direct Bilirubin AST ALT Alkaline Phosphatase Lactate Dehydrogenase Troponin T C-Reactive Protein Total Protein Albumin Prealbumin Triglycerides Cholesterol LDL Cholesterol Direct HDL Cholesterol 25-OH Vitamin D Total PTH Intact Urine pH Urine WBC (Auto) Urine Creatinine Urine Total Protein Fluid Total Protein Vancomycin Trough Rheumatoid Factor Complement C4 Miscellaneous Test Crossmatch 1201/22/17 01/22/17 07:20 07:20 11:31 WBC RBC 2.75 L Hgb 7.5 L Hct 22.7 L MCV MCH 27 L MCHC RDW 17.5 H Plt Count Lymph % (Auto) [place] % (Auto) Lymph # [place] # Baso # Seg Neutrophils % Seg Neuts % (Manual) Lymphocytes % (Manual) Monocytes % (Manual) Eosinophils % (Manual) Basophils % (Manual) Nucleated RBC % Seg Neutrophils # Seg Neutrophils # Man Lymphocytes # (Manual) Monocytes # (Manual) Eosinophils # (Manual) Basophils # (Manual) PT INR Fibrinogen dRVVT Confirm Interp Factor V Activity POC ABG pH POC ABG pCO2 POC ABG pO2 ABG pO2 ABG HCO3 ABG Base Excess ABG Hemoglobin Oxyhemoglobin Sodium Potassium 3.3 L Chloride Carbon Dioxide BUN 42 H Creatinine Glucose 105 H POC Glucose 124 H Lactic Acid Calcium Ionized Calcium Phosphorus 1.70 L Magnesium Direct Bilirubin AST ALT Alkaline Phosphatase Lactate Dehydrogenase Troponin T C-Reactive Protein Total Protein Albumin Prealbumin Triglycerides Cholesterol LDL Cholesterol Direct HDL Cholesterol 25-OH Vitamin D Total PTH Intact Urine pH Urine WBC (Auto) Urine Creatinine Urine Total Protein Fluid Total Protein Vancomycin Trough Rheumatoid Factor Complement C4 Miscellaneous Test Crossmatch 01/22/17 01/22/17 01/23/17 17:16 23:35 05:35 WBC RBC Hgb Hct MCV MCH MCHC RDW Plt Count Lymph % (Auto) [place] % (Auto) Lymph # [place] # Baso # Seg Neutrophils % Seg Neuts % (Manual) Lymphocytes % (Manual) Monocytes % (Manual) Eosinophils % (Manual) Basophils % (Manual) Nucleated RBC % Seg Neutrophils # Seg Neutrophils # Man Lymphocytes # (Manual) Monocytes # (Manual) Eosinophils # (Manual) Basophils # (Manual) PT INR Fibrinogen dRVVT Confirm Interp Factor V Activity POC ABG pH POC ABG pCO2 POC ABG pO2 ABG pO2 ABG HCO3 ABG Base Excess ABG Hemoglobin Oxyhemoglobin Sodium Potassium Chloride Carbon Dioxide BUN Creatinine Glucose POC Glucose 135 H 120 H 111 H Lactic Acid Calcium Ionized Calcium Phosphorus Magnesium Direct Bilirubin AST ALT Alkaline Phosphatase Lactate Dehydrogenase Troponin T C-Reactive Protein Total Protein Albumin Prealbumin Triglycerides Cholesterol LDL Cholesterol Direct HDL Cholesterol 25-OH Vitamin D Total PTH Intact Urine pH Urine WBC (Auto) Urine Creatinine Urine Total Protein Fluid Total Protein Vancomycin Trough Rheumatoid Factor Complement C4 Miscellaneous Test Crossmatch 01/23/17 01/23/17 01/23/17 06:10 17:27 23:44 WBC RBC Hgb Hct MCV MCH MCHC RDW Plt Count Lymph % (Auto) [place] % (Auto) Lymph # [place] # Baso # Seg Neutrophils % Seg Neuts % (Manual) Lymphocytes % (Manual) Monocytes % (Manual) Eosinophils % (Manual) Basophils % (Manual) Nucleated RBC % Seg Neutrophils # Seg Neutrophils # Man Lymphocytes # (Manual) Monocytes # (Manual) Eosinophils # (Manual) Basophils # (Manual) PT INR Fibrinogen dRVVT Confirm Interp Factor V Activity POC ABG pH POC ABG pCO2 POC ABG pO2 ABG pO2 ABG HCO3 ABG Base Excess ABG Hemoglobin Oxyhemoglobin Sodium Potassium 3.3 L Chloride Carbon Dioxide BUN 66 H Creatinine 1.3 H Glucose 109 H POC Glucose 120 H 115 H Lactic Acid Calcium Ionized Calcium Phosphorus 2.20 L D Magnesium Direct Bilirubin AST ALT Alkaline Phosphatase Lactate Dehydrogenase Troponin T C-Reactive Protein Total Protein Albumin Prealbumin Triglycerides Cholesterol LDL Cholesterol Direct HDL Cholesterol 25-OH Vitamin D Total PTH Intact Urine pH Urine WBC (Auto) Urine Creatinine Urine Total Protein Fluid Total Protein Vancomycin Trough Rheumatoid Factor Complement C4 Miscellaneous Test Crossmatch 01/24/17 01/24/17 01/24/17 05:19 05:50 12:19 WBC RBC Hgb Hct MCV MCH MCHC RDW Plt Count Lymph % (Auto) [place] % (Auto) Lymph # [place] # Baso # Seg Neutrophils % Seg Neuts % (Manual) Lymphocytes % (Manual) Monocytes % (Manual) Eosinophils % (Manual) Basophils % (Manual) Nucleated RBC % Seg Neutrophils # Seg Neutrophils # Man Lymphocytes # (Manual) Monocytes # (Manual) Eosinophils # (Manual) Basophils # (Manual) PT INR Fibrinogen dRVVT Confirm Interp Factor V Activity POC ABG pH POC ABG pCO2 POC ABG pO2 ABG pO2 ABG HCO3 ABG Base Excess ABG Hemoglobin Oxyhemoglobin Sodium Potassium Chloride Carbon Dioxide BUN 47 H Creatinine Glucose 117 H POC Glucose 126 H 119 H Lactic Acid Calcium Ionized Calcium Phosphorus 2.30 L Magnesium 1.60 L Direct Bilirubin AST ALT Alkaline Phosphatase Lactate Dehydrogenase Troponin T C-Reactive Protein Total Protein Albumin Prealbumin Triglycerides Cholesterol LDL Cholesterol Direct HDL Cholesterol 25-OH Vitamin D Total PTH Intact Urine pH Urine WBC (Auto) Urine Creatinine Urine Total Protein Fluid Total Protein Vancomycin Trough Rheumatoid Factor Complement C4 Miscellaneous Test Crossmatch 01/24/17 01/25/17 01/25/17 17:08 00:37 04:00 WBC RBC Hgb Hct MCV MCH MCHC RDW Plt Count Lymph % (Auto) [place] % (Auto) Lymph # [place] # Baso # Seg Neutrophils % Seg Neuts % (Manual) Lymphocytes % (Manual) Monocytes % (Manual) Eosinophils % (Manual) Basophils % (Manual) Nucleated RBC % Seg Neutrophils # Seg Neutrophils # Man Lymphocytes # (Manual) Monocytes # (Manual) Eosinophils # (Manual) Basophils # (Manual) PT INR Fibrinogen dRVVT Confirm Interp Factor V Activity POC ABG pH POC ABG pCO2 POC ABG pO2 ABG pO2 ABG HCO3 ABG Base Excess ABG Hemoglobin Oxyhemoglobin Sodium Potassium Chloride Carbon Dioxide BUN 72 H Creatinine 1.3 H Glucose POC Glucose 127 H 110 H Lactic Acid Calcium Ionized Calcium Phosphorus Magnesium Direct Bilirubin AST ALT Alkaline Phosphatase Lactate Dehydrogenase Troponin T C-Reactive Protein Total Protein Albumin Prealbumin Triglycerides Cholesterol LDL Cholesterol Direct HDL Cholesterol 25-OH Vitamin D Total PTH Intact Urine pH Urine WBC (Auto) Urine Creatinine Urine Total Protein Fluid Total Protein Vancomycin Trough Rheumatoid Factor Complement C4 Miscellaneous Test Crossmatch 01/25/17 01/25/17 01/25/17 04:00 11:15 13:05 WBC RBC 2.49 L Hgb 6.7 L Hct 20.9 L MCV MCH 27 L MCHC RDW 18.8 H Plt Count Lymph % (Auto) [place] % (Auto) 10.1 H Lymph # [place] # 1.0 H Baso # Seg Neutrophils % Seg Neuts % (Manual) Lymphocytes % (Manual) Monocytes % (Manual) Eosinophils % (Manual) Basophils % (Manual) Nucleated RBC % Seg Neutrophils # Seg Neutrophils # Man Lymphocytes # (Manual) Monocytes # (Manual) Eosinophils # (Manual) Basophils # (Manual) PT INR Fibrinogen dRVVT Confirm Interp Factor V Activity POC ABG pH POC ABG pCO2 POC ABG pO2 ABG pO2 ABG HCO3 ABG Base Excess ABG Hemoglobin Oxyhemoglobin Sodium Potassium Chloride Carbon Dioxide BUN Creatinine Glucose POC Glucose 128 H Lactic Acid Calcium Ionized Calcium Phosphorus Magnesium Direct Bilirubin AST ALT Alkaline Phosphatase Lactate Dehydrogenase Troponin T C-Reactive Protein Total Protein Albumin Prealbumin Triglycerides Cholesterol LDL Cholesterol Direct HDL Cholesterol 25-OH Vitamin D Total PTH Intact Urine pH Urine WBC (Auto) Urine Creatinine Urine Total Protein Fluid Total Protein Vancomycin Trough Rheumatoid Factor Complement C4 Miscellaneous Test Crossmatch See Detail 01/25/17 01/25/17 01/26/17 18:02 23:07 01:20 WBC RBC Hgb Hct MCV MCH MCHC RDW Plt Count Lymph % (Auto) [place] % (Auto) Lymph # [place] # Baso # Seg Neutrophils % Seg Neuts % (Manual) Lymphocytes % (Manual) Monocytes % (Manual) Eosinophils % (Manual) Basophils % (Manual) Nucleated RBC % Seg Neutrophils # Seg Neutrophils # Man Lymphocytes # (Manual) Monocytes # (Manual) Eosinophils # (Manual) Basophils # (Manual) PT INR Fibrinogen dRVVT Confirm Interp Factor V Activity POC ABG pH POC ABG pCO2 POC ABG pO2 ABG pO2 ABG HCO3 ABG Base Excess ABG Hemoglobin Oxyhemoglobin Sodium Potassium Chloride Carbon Dioxide BUN Creatinine Glucose POC Glucose 120 H 123 H 112 H Lactic Acid Calcium Ionized Calcium Phosphorus Magnesium Direct Bilirubin AST ALT Alkaline Phosphatase Lactate Dehydrogenase Troponin T C-Reactive Protein Total Protein Albumin Prealbumin Triglycerides Cholesterol LDL Cholesterol Direct HDL Cholesterol 25-OH Vitamin D Total PTH Intact Urine pH Urine WBC (Auto) Urine Creatinine Urine Total Protein Fluid Total Protein Vancomycin Trough Rheumatoid Factor Complement C4 Miscellaneous Test Crossmatch 01/26/17 01/26/17 01/26/17 04:20 04:20 11:23 WBC 13.1 H RBC 3.28 L Hgb 9.0 L Hct 26.9 L D MCV MCH 27 L MCHC RDW 17.2 H Plt Count Lymph % (Auto) [place] % (Auto) 9.0 H Lymph # [place] # 1.2 H Baso # Seg Neutrophils % 73.1 H Seg Neuts % (Manual) Lymphocytes % (Manual) Monocytes % (Manual) Eosinophils % (Manual) Basophils % (Manual) Nucleated RBC % Seg Neutrophils # 9.6 H Seg Neutrophils # Man Lymphocytes # (Manual) Monocytes # (Manual) Eosinophils # (Manual) Basophils # (Manual) PT INR Fibrinogen dRVVT Confirm Interp Factor V Activity POC ABG pH POC ABG pCO2 POC ABG pO2 ABG pO2 ABG HCO3 ABG Base Excess ABG Hemoglobin Oxyhemoglobin Sodium Potassium Chloride Carbon Dioxide BUN 51 H Creatinine Glucose 117 H POC Glucose 125 H Lactic Acid Calcium Ionized Calcium Phosphorus Magnesium Direct Bilirubin AST ALT Alkaline Phosphatase Lactate Dehydrogenase Troponin T C-Reactive Protein Total Protein Albumin Prealbumin Triglycerides Cholesterol LDL Cholesterol Direct HDL Cholesterol 25-OH Vitamin D Total PTH Intact Urine pH Urine WBC (Auto) Urine Creatinine Urine Total Protein Fluid Total Protein Vancomycin Trough Rheumatoid Factor Complement C4 Miscellaneous Test Crossmatch 01/26/17 01/27/17 01/27/17 17:11 00:30 04:00 WBC RBC Hgb Hct MCV MCH MCHC RDW Plt Count Lymph % (Auto) [place] % (Auto) Lymph # [place] # Baso # Seg Neutrophils % Seg Neuts % (Manual) Lymphocytes % (Manual) Monocytes % (Manual) Eosinophils % (Manual) Basophils % (Manual) Nucleated RBC % Seg Neutrophils # Seg Neutrophils # Man Lymphocytes # (Manual) Monocytes # (Manual) Eosinophils # (Manual) Basophils # (Manual) PT INR Fibrinogen dRVVT Confirm Interp Factor V Activity POC ABG pH POC ABG pCO2 POC ABG pO2 ABG pO2 ABG HCO3 ABG Base Excess ABG Hemoglobin Oxyhemoglobin Sodium Potassium Chloride 97.7 L Carbon Dioxide 21 L BUN 79 H Creatinine 1.7 H D Glucose 112 H POC Glucose 133 H 135 H Lactic Acid Calcium Ionized Calcium Phosphorus 5.00 H D Magnesium Direct Bilirubin AST ALT Alkaline Phosphatase Lactate Dehydrogenase Troponin T C-Reactive Protein Total Protein Albumin Prealbumin Triglycerides Cholesterol LDL Cholesterol Direct HDL Cholesterol 25-OH Vitamin D Total PTH Intact Urine pH Urine WBC (Auto) Urine Creatinine Urine Total Protein Fluid Total Protein Vancomycin Trough Rheumatoid Factor Complement C4 Miscellaneous Test Crossmatch 01/27/17 01/27/17 01/27/17 05:12 12:18 17:25 WBC RBC Hgb Hct MCV MCH MCHC RDW Plt Count Lymph % (Auto) [place] % (Auto) Lymph # [place] # Baso # Seg Neutrophils % Seg Neuts % (Manual) Lymphocytes % (Manual) Monocytes % (Manual) Eosinophils % (Manual) Basophils % (Manual) Nucleated RBC % Seg Neutrophils # Seg Neutrophils # Man Lymphocytes # (Manual) Monocytes # (Manual) Eosinophils # (Manual) Basophils # (Manual) PT INR Fibrinogen dRVVT Confirm Interp Factor V Activity POC ABG pH POC ABG pCO2 POC ABG pO2 ABG pO2 ABG HCO3 ABG Base Excess ABG Hemoglobin Oxyhemoglobin Sodium Potassium Chloride Carbon Dioxide BUN Creatinine Glucose POC Glucose 116 H 153 H 152 H Lactic Acid Calcium Ionized Calcium Phosphorus Magnesium Direct Bilirubin AST ALT Alkaline Phosphatase Lactate Dehydrogenase Troponin T C-Reactive Protein Total Protein Albumin Prealbumin Triglycerides Cholesterol LDL Cholesterol Direct HDL Cholesterol 25-OH Vitamin D Total PTH Intact Urine pH Urine WBC (Auto) Urine Creatinine Urine Total Protein Fluid Total Protein Vancomycin Trough Rheumatoid Factor Complement C4 Miscellaneous Test Crossmatch 01/27/17 01/28/17 01/28/17 23:42 04:00 04:00 WBC 14.4 H RBC 2.82 L Hgb 7.4 L Hct 23.5 L MCV MCH 26 L MCHC RDW 17.6 H Plt Count Lymph % (Auto) 10.2 L [place] % (Auto) 11.0 H Lymph # [place] # 1.6 H Baso # Seg Neutrophils % 78.0 H Seg Neuts % (Manual) Lymphocytes % (Manual) Monocytes % (Manual) Eosinophils % (Manual) Basophils % (Manual) Nucleated RBC % Seg Neutrophils # 11.3 H Seg Neutrophils # Man Lymphocytes # (Manual) Monocytes # (Manual) Eosinophils # (Manual) Basophils # (Manual) PT INR Fibrinogen dRVVT Confirm Interp Factor V Activity POC ABG pH POC ABG pCO2 POC ABG pO2 ABG pO2 ABG HCO3 ABG Base Excess ABG Hemoglobin Oxyhemoglobin Sodium Potassium Chloride Carbon Dioxide BUN 55 H Creatinine 1.3 H Glucose 114 H POC Glucose 121 H Lactic Acid Calcium Ionized Calcium Phosphorus Magnesium Direct Bilirubin AST ALT Alkaline Phosphatase Lactate Dehydrogenase Troponin T C-Reactive Protein Total Protein Albumin 1.4 L Prealbumin Triglycerides Cholesterol LDL Cholesterol Direct HDL Cholesterol 25-OH Vitamin D Total PTH Intact Urine pH Urine WBC (Auto) Urine Creatinine Urine Total Protein Fluid Total Protein Vancomycin Trough Rheumatoid Factor Complement C4 Miscellaneous Test Crossmatch 01/28/17 01/28/17 01/29/17 04:59 12:30 00:02 WBC RBC Hgb Hct MCV MCH MCHC RDW Plt Count Lymph % (Auto) [place] % (Auto) Lymph # [place] # Baso # Seg Neutrophils % Seg Neuts % (Manual) Lymphocytes % (Manual) Monocytes % (Manual) Eosinophils % (Manual) Basophils % (Manual) Nucleated RBC % Seg Neutrophils # Seg Neutrophils # Man Lymphocytes # (Manual) Monocytes # (Manual) Eosinophils # (Manual) Basophils # (Manual) PT INR Fibrinogen dRVVT Confirm Interp Factor V Activity POC ABG pH POC ABG pCO2 POC ABG pO2 ABG pO2 ABG HCO3 ABG Base Excess ABG Hemoglobin Oxyhemoglobin Sodium Potassium Chloride Carbon Dioxide BUN Creatinine Glucose POC Glucose 126 H 119 H 138 H Lactic Acid Calcium Ionized Calcium Phosphorus Magnesium Direct Bilirubin AST ALT Alkaline Phosphatase Lactate Dehydrogenase Troponin T C-Reactive Protein Total Protein Albumin Prealbumin Triglycerides Cholesterol LDL Cholesterol Direct HDL Cholesterol 25-OH Vitamin D Total PTH Intact Urine pH Urine WBC (Auto) Urine Creatinine Urine Total Protein Fluid Total Protein Vancomycin Trough Rheumatoid Factor Complement C4 Miscellaneous Test Crossmatch 01/29/17 01/29/17 01/29/17 04:58 06:15 11:35 WBC RBC Hgb Hct MCV MCH MCHC RDW Plt Count Lymph % (Auto) [place] % (Auto) Lymph # [place] # Baso # Seg Neutrophils % Seg Neuts % (Manual) Lymphocytes % (Manual) Monocytes % (Manual) Eosinophils % (Manual) Basophils % (Manual) Nucleated RBC % Seg Neutrophils # Seg Neutrophils # Man Lymphocytes # (Manual) Monocytes # (Manual) Eosinophils # (Manual) Basophils # (Manual) PT INR Fibrinogen dRVVT Confirm Interp Factor V Activity POC ABG pH POC ABG pCO2 POC ABG pO2 ABG pO2 ABG HCO3 ABG Base Excess ABG Hemoglobin Oxyhemoglobin Sodium Potassium Chloride Carbon Dioxide BUN 85 H Creatinine 1.7 H Glucose 105 H POC Glucose 114 H 110 H Lactic Acid Calcium Ionized Calcium Phosphorus Magnesium 2.40 H Direct Bilirubin AST ALT Alkaline Phosphatase Lactate Dehydrogenase Troponin T C-Reactive Protein Total Protein Albumin Prealbumin Triglycerides Cholesterol LDL Cholesterol Direct HDL Cholesterol 25-OH Vitamin D Total PTH Intact Urine pH Urine WBC (Auto) Urine Creatinine Urine Total Protein Fluid Total Protein Vancomycin Trough Rheumatoid Factor Complement C4 Miscellaneous Test Crossmatch 01/29/17 01/29/17 01/30/17 18:24 23:41 05:12 WBC RBC Hgb Hct MCV MCH MCHC RDW Plt Count Lymph % (Auto) [place] % (Auto) Lymph # [place] # Baso # Seg Neutrophils % Seg Neuts % (Manual) Lymphocytes % (Manual) Monocytes % (Manual) Eosinophils % (Manual) Basophils % (Manual) Nucleated RBC % Seg Neutrophils # Seg Neutrophils # Man Lymphocytes # (Manual) Monocytes # (Manual) Eosinophils # (Manual) Basophils # (Manual) PT INR Fibrinogen dRVVT Confirm Interp Factor V Activity POC ABG pH POC ABG pCO2 POC ABG pO2 ABG pO2 ABG HCO3 ABG Base Excess ABG Hemoglobin Oxyhemoglobin Sodium Potassium Chloride Carbon Dioxide BUN Creatinine Glucose POC Glucose 109 H 134 H 109 H Lactic Acid Calcium Ionized Calcium Phosphorus Magnesium Direct Bilirubin AST ALT Alkaline Phosphatase Lactate Dehydrogenase Troponin T C-Reactive Protein Total Protein Albumin Prealbumin Triglycerides Cholesterol LDL Cholesterol Direct HDL Cholesterol 25-OH Vitamin D Total PTH Intact Urine pH Urine WBC (Auto) Urine Creatinine Urine Total Protein Fluid Total Protein Vancomycin Trough Rheumatoid Factor Complement C4 Miscellaneous Test Crossmatch 01/30/17 01/30/17 01/30/17 11:26 17:43 23:39 WBC RBC Hgb Hct MCV MCH MCHC RDW Plt Count Lymph % (Auto) [place] % (Auto) Lymph # [place] # Baso # Seg Neutrophils % Seg Neuts % (Manual) Lymphocytes % (Manual) Monocytes % (Manual) Eosinophils % (Manual) Basophils % (Manual) Nucleated RBC % Seg Neutrophils # Seg Neutrophils # Man Lymphocytes # (Manual) Monocytes # (Manual) Eosinophils # (Manual) Basophils # (Manual) PT INR Fibrinogen dRVVT Confirm Interp Factor V Activity POC ABG pH POC ABG pCO2 POC ABG pO2 ABG pO2 ABG HCO3 ABG Base Excess ABG Hemoglobin Oxyhemoglobin Sodium Potassium Chloride Carbon Dioxide BUN Creatinine Glucose POC Glucose 135 H 143 H 122 H Lactic Acid Calcium Ionized Calcium Phosphorus Magnesium Direct Bilirubin AST ALT Alkaline Phosphatase Lactate Dehydrogenase Troponin T C-Reactive Protein Total Protein Albumin Prealbumin Triglycerides Cholesterol LDL Cholesterol Direct HDL Cholesterol 25-OH Vitamin D Total PTH Intact Urine pH Urine WBC (Auto) Urine Creatinine Urine Total Protein Fluid Total Protein Vancomycin Trough Rheumatoid Factor Complement C4 Miscellaneous Test Crossmatch 01/31/17 01/31/17 01/31/17 04:00 05:40 11:12 WBC RBC Hgb Hct MCV MCH MCHC RDW Plt Count Lymph % (Auto) [place] % (Auto) Lymph # [place] # Baso # Seg Neutrophils % Seg Neuts % (Manual) Lymphocytes % (Manual) Monocytes % (Manual) Eosinophils % (Manual) Basophils % (Manual) Nucleated RBC % Seg Neutrophils # Seg Neutrophils # Man Lymphocytes # (Manual) Monocytes # (Manual) Eosinophils # (Manual) Basophils # (Manual) PT INR Fibrinogen dRVVT Confirm Interp Factor V Activity POC ABG pH POC ABG pCO2 POC ABG pO2 ABG pO2 ABG HCO3 ABG Base Excess ABG Hemoglobin Oxyhemoglobin Sodium Potassium Chloride Carbon Dioxide BUN 78 H Creatinine 1.5 H Glucose 108 H POC Glucose 123 H Lactic Acid Calcium Ionized Calcium Phosphorus Magnesium Direct Bilirubin AST ALT Alkaline Phosphatase Lactate Dehydrogenase Troponin T C-Reactive Protein 8.10 H Total Protein Albumin Prealbumin Triglycerides Cholesterol LDL Cholesterol Direct HDL Cholesterol 25-OH Vitamin D Total PTH Intact Urine pH Urine WBC (Auto) Urine Creatinine Urine Total Protein Fluid Total Protein Vancomycin Trough Rheumatoid Factor Complement C4 Miscellaneous Test Crossmatch 01/31/17 01/31/17 01/31/17 11:16 17:45 17:50 WBC RBC Hgb Hct MCV MCH MCHC RDW Plt Count Lymph % (Auto) [place] % (Auto) Lymph # [place] # Baso # Seg Neutrophils % Seg Neuts % (Manual) Lymphocytes % (Manual) Monocytes % (Manual) Eosinophils % (Manual) Basophils % (Manual) Nucleated RBC % Seg Neutrophils # Seg Neutrophils # Man Lymphocytes # (Manual) Monocytes # (Manual) Eosinophils # (Manual) Basophils # (Manual) PT INR Fibrinogen dRVVT Confirm Interp Factor V Activity POC ABG pH POC ABG pCO2 POC ABG pO2 ABG pO2 ABG HCO3 ABG Base Excess ABG Hemoglobin Oxyhemoglobin Sodium Potassium Chloride Carbon Dioxide BUN Creatinine Glucose POC Glucose 119 H 111 H Lactic Acid Calcium Ionized Calcium Phosphorus Magnesium Direct Bilirubin AST ALT Alkaline Phosphatase Lactate Dehydrogenase Troponin T C-Reactive Protein Total Protein Albumin Prealbumin Triglycerides Cholesterol LDL Cholesterol Direct HDL Cholesterol 25-OH Vitamin D Total PTH Intact 6.76 L Urine pH Urine WBC (Auto) Urine Creatinine Urine Total Protein Fluid Total Protein Vancomycin Trough Rheumatoid Factor Complement C4 Miscellaneous Test Crossmatch 01/31/17 02/01/17 02/01/17 23:19 05:42 09:24 WBC RBC Hgb Hct MCV MCH MCHC RDW Plt Count Lymph % (Auto) [place] % (Auto) Lymph # [place] # Baso # Seg Neutrophils % Seg Neuts % (Manual) Lymphocytes % (Manual) Monocytes % (Manual) Eosinophils % (Manual) Basophils % (Manual) Nucleated RBC % Seg Neutrophils # Seg Neutrophils # Man Lymphocytes # (Manual) Monocytes # (Manual) Eosinophils # (Manual) Basophils # (Manual) PT INR Fibrinogen dRVVT Confirm Interp Factor V Activity POC ABG pH POC ABG pCO2 POC ABG pO2 ABG pO2 ABG HCO3 ABG Base Excess ABG Hemoglobin Oxyhemoglobin Sodium Potassium Chloride Carbon Dioxide BUN Creatinine Glucose POC Glucose 118 H 122 H Lactic Acid Calcium Ionized Calcium Phosphorus Magnesium 2.60 H Direct Bilirubin AST ALT Alkaline Phosphatase Lactate Dehydrogenase Troponin T C-Reactive Protein Total Protein Albumin Prealbumin Triglycerides Cholesterol LDL Cholesterol Direct HDL Cholesterol 25-OH Vitamin D Total PTH Intact Urine pH Urine WBC (Auto) Urine Creatinine Urine Total Protein Fluid Total Protein Vancomycin Trough Rheumatoid Factor Complement C4 Miscellaneous Test Crossmatch 02/01/17 02/01/17 02/02/17 09:24 12:15 07:40 WBC RBC Hgb Hct MCV MCH MCHC RDW Plt Count Lymph % (Auto) [place] % (Auto) Lymph # [place] # Baso # Seg Neutrophils % Seg Neuts % (Manual) Lymphocytes % (Manual) Monocytes % (Manual) Eosinophils % (Manual) Basophils % (Manual) Nucleated RBC % Seg Neutrophils # Seg Neutrophils # Man Lymphocytes # (Manual) Monocytes # (Manual) Eosinophils # (Manual) Basophils # (Manual) PT INR Fibrinogen dRVVT Confirm Interp Factor V Activity POC ABG pH POC ABG pCO2 POC ABG pO2 ABG pO2 ABG HCO3 ABG Base Excess ABG Hemoglobin Oxyhemoglobin Sodium Potassium Chloride Carbon Dioxide BUN 102 H 72 H Creatinine 1.9 H 1.5 H Glucose 120 H POC Glucose 156 H Lactic Acid Calcium Ionized Calcium Phosphorus Magnesium Direct Bilirubin AST ALT Alkaline Phosphatase Lactate Dehydrogenase Troponin T C-Reactive Protein Total Protein Albumin Prealbumin Triglycerides Cholesterol LDL Cholesterol Direct HDL Cholesterol 25-OH Vitamin D Total PTH Intact Urine pH Urine WBC (Auto) Urine Creatinine Urine Total Protein Fluid Total Protein Vancomycin Trough Rheumatoid Factor Complement C4 Miscellaneous Test Crossmatch 02/02/17 02/02/17 02/03/17 10:16 12:11 00:08 WBC 12.0 H RBC 3.08 L Hgb 8.3 L Hct 25.6 L MCV MCH 27 L MCHC RDW 18.2 H Plt Count Lymph % (Auto) [place] % (Auto) Lymph # [place] # Baso # Seg Neutrophils % 78.4 H Seg Neuts % (Manual) Lymphocytes % (Manual) Monocytes % (Manual) Eosinophils % (Manual) Basophils % (Manual) Nucleated RBC % Seg Neutrophils # 9.4 H Seg Neutrophils # Man Lymphocytes # (Manual) Monocytes # (Manual) Eosinophils # (Manual) Basophils # (Manual) PT INR Fibrinogen dRVVT Confirm Interp Factor V Activity POC ABG pH POC ABG pCO2 POC ABG pO2 ABG pO2 ABG HCO3 ABG Base Excess ABG Hemoglobin Oxyhemoglobin Sodium Potassium Chloride Carbon Dioxide BUN Creatinine Glucose POC Glucose 110 H 120 H Lactic Acid Calcium Ionized Calcium Phosphorus Magnesium Direct Bilirubin AST ALT Alkaline Phosphatase Lactate Dehydrogenase Troponin T C-Reactive Protein Total Protein Albumin Prealbumin Triglycerides Cholesterol LDL Cholesterol Direct HDL Cholesterol 25-OH Vitamin D Total PTH Intact Urine pH Urine WBC (Auto) Urine Creatinine Urine Total Protein Fluid Total Protein Vancomycin Trough Rheumatoid Factor Complement C4 Miscellaneous Test Crossmatch 02/03/17 02/03/17 02/03/17 05:41 07:38 11:31 WBC RBC Hgb Hct MCV MCH MCHC RDW Plt Count Lymph % (Auto) [place] % (Auto) Lymph # [place] # Baso # Seg Neutrophils % Seg Neuts % (Manual) Lymphocytes % (Manual) Monocytes % (Manual) Eosinophils % (Manual) Basophils % (Manual) Nucleated RBC % Seg Neutrophils # Seg Neutrophils # Man Lymphocytes # (Manual) Monocytes # (Manual) Eosinophils # (Manual) Basophils # (Manual) PT INR Fibrinogen dRVVT Confirm Interp Factor V Activity POC ABG pH POC ABG pCO2 POC ABG pO2 ABG pO2 ABG HCO3 ABG Base Excess ABG Hemoglobin Oxyhemoglobin Sodium 134 L Potassium Chloride Carbon Dioxide 21 L BUN 91 H Creatinine 1.9 H Glucose 110 H POC Glucose 119 H 119 H Lactic Acid Calcium 10.3 H Ionized Calcium Phosphorus Magnesium Direct Bilirubin AST ALT Alkaline Phosphatase Lactate Dehydrogenase Troponin T C-Reactive Protein Total Protein Albumin Prealbumin Triglycerides Cholesterol LDL Cholesterol Direct HDL Cholesterol 25-OH Vitamin D Total PTH Intact Urine pH Urine WBC (Auto) Urine Creatinine Urine Total Protein Fluid Total Protein Vancomycin Trough Rheumatoid Factor Complement C4 Miscellaneous Test Crossmatch 02/03/17 02/04/17 02/04/17 17:13 04:00 05:18 WBC RBC Hgb Hct MCV MCH MCHC RDW Plt Count Lymph % (Auto) [place] % (Auto) Lymph # [place] # Baso # Seg Neutrophils % Seg Neuts % (Manual) Lymphocytes % (Manual) Monocytes % (Manual) Eosinophils % (Manual) Basophils % (Manual) Nucleated RBC % Seg Neutrophils # Seg Neutrophils # Man Lymphocytes # (Manual) Monocytes # (Manual) Eosinophils # (Manual) Basophils # (Manual) PT INR Fibrinogen dRVVT Confirm Interp Factor V Activity POC ABG pH POC ABG pCO2 POC ABG pO2 ABG pO2 ABG HCO3 ABG Base Excess ABG Hemoglobin Oxyhemoglobin Sodium 136 L Potassium Chloride Carbon Dioxide BUN 58 H Creatinine 1.3 H Glucose 103 H POC Glucose 133 H 132 H Lactic Acid Calcium Ionized Calcium Phosphorus 2.00 L D Magnesium 1.60 L Direct Bilirubin AST ALT Alkaline Phosphatase Lactate Dehydrogenase Troponin T C-Reactive Protein Total Protein Albumin Prealbumin Triglycerides Cholesterol LDL Cholesterol Direct HDL Cholesterol 25-OH Vitamin D Total PTH Intact Urine pH Urine WBC (Auto) Urine Creatinine Urine Total Protein Fluid Total Protein Vancomycin Trough Rheumatoid Factor Complement C4 Miscellaneous Test Crossmatch 02/05/17 02/05/17 02/05/17 00:01 04:00 06:42 WBC RBC Hgb Hct MCV MCH MCHC RDW Plt Count Lymph % (Auto) [place] % (Auto) Lymph # [place] # Baso # Seg Neutrophils % Seg Neuts % (Manual) Lymphocytes % (Manual) Monocytes % (Manual) Eosinophils % (Manual) Basophils % (Manual) Nucleated RBC % Seg Neutrophils # Seg Neutrophils # Man Lymphocytes # (Manual) Monocytes # (Manual) Eosinophils # (Manual) Basophils # (Manual) PT INR Fibrinogen dRVVT Confirm Interp Factor V Activity POC ABG pH POC ABG pCO2 POC ABG pO2 ABG pO2 ABG HCO3 ABG Base Excess ABG Hemoglobin Oxyhemoglobin Sodium Potassium Chloride Carbon Dioxide BUN 83 H Creatinine 1.8 H Glucose POC Glucose 119 H 110 H Lactic Acid Calcium 10.7 H Ionized Calcium Phosphorus Magnesium Direct Bilirubin AST ALT Alkaline Phosphatase Lactate Dehydrogenase Troponin T C-Reactive Protein Total Protein Albumin Prealbumin Triglycerides Cholesterol LDL Cholesterol Direct HDL Cholesterol 25-OH Vitamin D Total PTH Intact Urine pH Urine WBC (Auto) Urine Creatinine Urine Total Protein Fluid Total Protein Vancomycin Trough Rheumatoid Factor Complement C4 Miscellaneous Test Crossmatch 02/05/17 02/05/17 02/05/17 09:59 11:47 23:44 WBC RBC 2.69 L Hgb 7.2 L Hct 22.5 L MCV MCH 27 L MCHC RDW 18.6 H Plt Count Lymph % (Auto) [place] % (Auto) 9.2 H Lymph # [place] # 0.9 H Baso # Seg Neutrophils % Seg Neuts % (Manual) Lymphocytes % (Manual) Monocytes % (Manual) Eosinophils % (Manual) Basophils % (Manual) Nucleated RBC % Seg Neutrophils # Seg Neutrophils # Man Lymphocytes # (Manual) Monocytes # (Manual) Eosinophils # (Manual) Basophils # (Manual) PT INR Fibrinogen dRVVT Confirm Interp Factor V Activity POC ABG pH POC ABG pCO2 POC ABG pO2 ABG pO2 ABG HCO3 ABG Base Excess ABG Hemoglobin Oxyhemoglobin Sodium Potassium Chloride Carbon Dioxide BUN Creatinine Glucose POC Glucose 130 H 123 H Lactic Acid Calcium Ionized Calcium Phosphorus Magnesium Direct Bilirubin AST ALT Alkaline Phosphatase Lactate Dehydrogenase Troponin T C-Reactive Protein Total Protein Albumin Prealbumin Triglycerides Cholesterol LDL Cholesterol Direct HDL Cholesterol 25-OH Vitamin D Total PTH Intact Urine pH Urine WBC (Auto) Urine Creatinine Urine Total Protein Fluid Total Protein Vancomycin Trough Rheumatoid Factor Complement C4 Miscellaneous Test Crossmatch 02/06/17 02/06/17 02/06/17 04:45 05:58 12:01 WBC RBC Hgb Hct MCV MCH MCHC RDW Plt Count Lymph % (Auto) [place] % (Auto) Lymph # [place] # Baso # Seg Neutrophils % Seg Neuts % (Manual) Lymphocytes % (Manual) Monocytes % (Manual) Eosinophils % (Manual) Basophils % (Manual) Nucleated RBC % Seg Neutrophils # Seg Neutrophils # Man Lymphocytes # (Manual) Monocytes # (Manual) Eosinophils # (Manual) Basophils # (Manual) PT INR Fibrinogen dRVVT Confirm Interp Factor V Activity POC ABG pH POC ABG pCO2 POC ABG pO2 ABG pO2 ABG HCO3 ABG Base Excess ABG Hemoglobin Oxyhemoglobin Sodium Potassium Chloride Carbon Dioxide BUN 101 H Creatinine 2.0 H Glucose 102 H POC Glucose 115 H 132 H Lactic Acid Calcium 10.6 H Ionized Calcium Phosphorus Magnesium Direct Bilirubin AST ALT Alkaline Phosphatase 199 H Lactate Dehydrogenase Troponin T C-Reactive Protein Total Protein Albumin 1.4 L Prealbumin Triglycerides Cholesterol LDL Cholesterol Direct HDL Cholesterol 25-OH Vitamin D Total PTH Intact Urine pH Urine WBC (Auto) Urine Creatinine Urine Total Protein Fluid Total Protein Vancomycin Trough Rheumatoid Factor Complement C4 Miscellaneous Test Crossmatch 02/06/17 02/06/17 02/07/17 17:41 23:32 05:04 WBC RBC Hgb Hct MCV MCH MCHC RDW Plt Count Lymph % (Auto) [place] % (Auto) Lymph # [place] # Baso # Seg Neutrophils % Seg Neuts % (Manual) Lymphocytes % (Manual) Monocytes % (Manual) Eosinophils % (Manual) Basophils % (Manual) Nucleated RBC % Seg Neutrophils # Seg Neutrophils # Man Lymphocytes # (Manual) Monocytes # (Manual) Eosinophils # (Manual) Basophils # (Manual) PT INR Fibrinogen dRVVT Confirm Interp Factor V Activity POC ABG pH POC ABG pCO2 POC ABG pO2 ABG pO2 ABG HCO3 ABG Base Excess ABG Hemoglobin Oxyhemoglobin Sodium Potassium Chloride Carbon Dioxide BUN Creatinine Glucose POC Glucose 134 H 128 H 119 H Lactic Acid Calcium Ionized Calcium Phosphorus Magnesium Direct Bilirubin AST ALT Alkaline Phosphatase Lactate Dehydrogenase Troponin T C-Reactive Protein Total Protein Albumin Prealbumin Triglycerides Cholesterol LDL Cholesterol Direct HDL Cholesterol 25-OH Vitamin D Total PTH Intact Urine pH Urine WBC (Auto) Urine Creatinine Urine Total Protein Fluid Total Protein Vancomycin Trough Rheumatoid Factor Complement C4 Miscellaneous Test Crossmatch 02/07/17 02/07/17 02/07/17 06:30 11:20 17:13 WBC RBC Hgb Hct MCV MCH MCHC RDW Plt Count Lymph % (Auto) [place] % (Auto) Lymph # [place] # Baso # Seg Neutrophils % Seg Neuts % (Manual) Lymphocytes % (Manual) Monocytes % (Manual) Eosinophils % (Manual) Basophils % (Manual) Nucleated RBC % Seg Neutrophils # Seg Neutrophils # Man Lymphocytes # (Manual) Monocytes # (Manual) Eosinophils # (Manual) Basophils # (Manual) PT INR Fibrinogen dRVVT Confirm Interp Factor V Activity POC ABG pH POC ABG pCO2 POC ABG pO2 ABG pO2 ABG HCO3 ABG Base Excess ABG Hemoglobin Oxyhemoglobin Sodium Potassium 3.4 L Chloride Carbon Dioxide BUN 69 H Creatinine 1.5 H Glucose 105 H POC Glucose 117 H 110 H Lactic Acid Calcium Ionized Calcium Phosphorus Magnesium 1.50 L Direct Bilirubin AST ALT Alkaline Phosphatase Lactate Dehydrogenase Troponin T C-Reactive Protein Total Protein Albumin Prealbumin Triglycerides Cholesterol LDL Cholesterol Direct HDL Cholesterol 25-OH Vitamin D Total PTH Intact Urine pH Urine WBC (Auto) Urine Creatinine Urine Total Protein Fluid Total Protein Vancomycin Trough Rheumatoid Factor Complement C4 Miscellaneous Test Crossmatch 02/07/17 02/08/17 02/08/17 20:47 04:00 11:43 WBC RBC Hgb Hct MCV MCH MCHC RDW Plt Count Lymph % (Auto) [place] % (Auto) Lymph # [place] # Baso # Seg Neutrophils % Seg Neuts % (Manual) Lymphocytes % (Manual) Monocytes % (Manual) Eosinophils % (Manual) Basophils % (Manual) Nucleated RBC % Seg Neutrophils # Seg Neutrophils # Man Lymphocytes # (Manual) Monocytes # (Manual) Eosinophils # (Manual) Basophils # (Manual) PT INR Fibrinogen dRVVT Confirm Interp Factor V Activity POC ABG pH POC ABG pCO2 POC ABG pO2 ABG pO2 ABG HCO3 ABG Base Excess ABG Hemoglobin Oxyhemoglobin Sodium Potassium Chloride Carbon Dioxide BUN 86 H Creatinine 1.7 H Glucose POC Glucose 115 H 122 H Lactic Acid Calcium Ionized Calcium Phosphorus Magnesium 1.60 L Direct Bilirubin AST ALT Alkaline Phosphatase Lactate Dehydrogenase Troponin T C-Reactive Protein Total Protein Albumin Prealbumin Triglycerides Cholesterol LDL Cholesterol Direct HDL Cholesterol 25-OH Vitamin D Total PTH Intact Urine pH Urine WBC (Auto) Urine Creatinine Urine Total Protein Fluid Total Protein Vancomycin Trough Rheumatoid Factor Complement C4 Miscellaneous Test Crossmatch 02/08/17 02/09/17 02/09/17 17:36 05:44 11:30 WBC RBC Hgb Hct MCV MCH MCHC RDW Plt Count Lymph % (Auto) [place] % (Auto) Lymph # [place] # Baso # Seg Neutrophils % Seg Neuts % (Manual) Lymphocytes % (Manual) Monocytes % (Manual) Eosinophils % (Manual) Basophils % (Manual) Nucleated RBC % Seg Neutrophils # Seg Neutrophils # Man Lymphocytes # (Manual) Monocytes # (Manual) Eosinophils # (Manual) Basophils # (Manual) PT INR Fibrinogen dRVVT Confirm Interp Factor V Activity POC ABG pH POC ABG pCO2 POC ABG pO2 ABG pO2 ABG HCO3 ABG Base Excess ABG Hemoglobin Oxyhemoglobin Sodium Potassium Chloride Carbon Dioxide BUN Creatinine Glucose POC Glucose 125 H 117 H 120 H Lactic Acid Calcium Ionized Calcium Phosphorus Magnesium Direct Bilirubin AST ALT Alkaline Phosphatase Lactate Dehydrogenase Troponin T C-Reactive Protein Total Protein Albumin Prealbumin Triglycerides Cholesterol LDL Cholesterol Direct HDL Cholesterol 25-OH Vitamin D Total PTH Intact Urine pH Urine WBC (Auto) Urine Creatinine Urine Total Protein Fluid Total Protein Vancomycin Trough Rheumatoid Factor Complement C4 Miscellaneous Test Crossmatch 02/09/17 02/10/17 02/10/17 23:45 05:45 05:50 WBC RBC Hgb Hct MCV MCH MCHC RDW Plt Count Lymph % (Auto) [place] % (Auto) Lymph # [place] # Baso # Seg Neutrophils % Seg Neuts % (Manual) Lymphocytes % (Manual) Monocytes % (Manual) Eosinophils % (Manual) Basophils % (Manual) Nucleated RBC % Seg Neutrophils # Seg Neutrophils # Man Lymphocytes # (Manual) Monocytes # (Manual) Eosinophils # (Manual) Basophils # (Manual) PT INR Fibrinogen dRVVT Confirm Interp Factor V Activity POC ABG pH POC ABG pCO2 POC ABG pO2 ABG pO2 ABG HCO3 ABG Base Excess ABG Hemoglobin Oxyhemoglobin Sodium Potassium Chloride Carbon Dioxide BUN 85 H Creatinine 1.8 H Glucose 109 H POC Glucose 114 H 189 H Lactic Acid Calcium Ionized Calcium Phosphorus Magnesium 2.50 H Direct Bilirubin AST ALT Alkaline Phosphatase Lactate Dehydrogenase Troponin T C-Reactive Protein Total Protein Albumin Prealbumin Triglycerides Cholesterol LDL Cholesterol Direct HDL Cholesterol 25-OH Vitamin D Total PTH Intact Urine pH Urine WBC (Auto) Urine Creatinine Urine Total Protein Fluid Total Protein Vancomycin Trough Rheumatoid Factor Complement C4 Miscellaneous Test Crossmatch 02/10/17 02/10/17 02/10/17 05:51 11:55 17:42 WBC RBC Hgb Hct MCV MCH MCHC RDW Plt Count Lymph % (Auto) [place] % (Auto) Lymph # [place] # Baso # Seg Neutrophils % Seg Neuts % (Manual) Lymphocytes % (Manual) Monocytes % (Manual) Eosinophils % (Manual) Basophils % (Manual) Nucleated RBC % Seg Neutrophils # Seg Neutrophils # Man Lymphocytes # (Manual) Monocytes # (Manual) Eosinophils # (Manual) Basophils # (Manual) PT INR Fibrinogen dRVVT Confirm Interp Factor V Activity POC ABG pH POC ABG pCO2 POC ABG pO2 ABG pO2 ABG HCO3 ABG Base Excess ABG Hemoglobin Oxyhemoglobin Sodium Potassium Chloride Carbon Dioxide BUN Creatinine Glucose POC Glucose 106 H 146 H 132 H Lactic Acid Calcium Ionized Calcium Phosphorus Magnesium Direct Bilirubin AST ALT Alkaline Phosphatase Lactate Dehydrogenase Troponin T C-Reactive Protein Total Protein Albumin Prealbumin Triglycerides Cholesterol LDL Cholesterol Direct HDL Cholesterol 25-OH Vitamin D Total PTH Intact Urine pH Urine WBC (Auto) Urine Creatinine Urine Total Protein Fluid Total Protein Vancomycin Trough Rheumatoid Factor Complement C4 Miscellaneous Test Crossmatch 02/10/17 02/11/17 02/11/17 23:43 04:08 05:34 WBC RBC Hgb Hct MCV MCH MCHC RDW Plt Count Lymph % (Auto) [place] % (Auto) Lymph # [place] # Baso # Seg Neutrophils % Seg Neuts % (Manual) Lymphocytes % (Manual) Monocytes % (Manual) Eosinophils % (Manual) Basophils % (Manual) Nucleated RBC % Seg Neutrophils # Seg Neutrophils # Man Lymphocytes # (Manual) Monocytes # (Manual) Eosinophils # (Manual) Basophils # (Manual) PT INR Fibrinogen dRVVT Confirm Interp Factor V Activity POC ABG pH POC ABG pCO2 POC ABG pO2 ABG pO2 ABG HCO3 ABG Base Excess ABG Hemoglobin Oxyhemoglobin Sodium 136 L Potassium Chloride Carbon Dioxide BUN 65 H Creatinine 1.7 H Glucose 105 H POC Glucose 130 H 113 H Lactic Acid Calcium Ionized Calcium Phosphorus Magnesium Direct Bilirubin AST ALT Alkaline Phosphatase Lactate Dehydrogenase Troponin T C-Reactive Protein Total Protein Albumin Prealbumin Triglycerides Cholesterol LDL Cholesterol Direct HDL Cholesterol 25-OH Vitamin D Total PTH Intact Urine pH Urine WBC (Auto) Urine Creatinine Urine Total Protein Fluid Total Protein Vancomycin Trough Rheumatoid Factor Complement C4 Miscellaneous Test Crossmatch 02/11/17 02/11/17 02/12/17 11:56 23:18 06:19 WBC RBC Hgb Hct MCV MCH MCHC RDW Plt Count Lymph % (Auto) [place] % (Auto) Lymph # [place] # Baso # Seg Neutrophils % Seg Neuts % (Manual) Lymphocytes % (Manual) Monocytes % (Manual) Eosinophils % (Manual) Basophils % (Manual) Nucleated RBC % Seg Neutrophils # Seg Neutrophils # Man Lymphocytes # (Manual) Monocytes # (Manual) Eosinophils # (Manual) Basophils # (Manual) PT INR Fibrinogen dRVVT Confirm Interp Factor V Activity POC ABG pH POC ABG pCO2 POC ABG pO2 ABG pO2 ABG HCO3 ABG Base Excess ABG Hemoglobin Oxyhemoglobin Sodium 136 L Potassium Chloride 97.1 L Carbon Dioxide BUN 93 H Creatinine 2.4 H Glucose POC Glucose 126 H 119 H Lactic Acid Calcium 11.0 H Ionized Calcium Phosphorus Magnesium Direct Bilirubin AST ALT Alkaline Phosphatase Lactate Dehydrogenase Troponin T C-Reactive Protein Total Protein Albumin Prealbumin Triglycerides Cholesterol LDL Cholesterol Direct HDL Cholesterol 25-OH Vitamin D Total PTH Intact Urine pH Urine WBC (Auto) Urine Creatinine Urine Total Protein Fluid Total Protein Vancomycin Trough Rheumatoid Factor Complement C4 Miscellaneous Test Crossmatch 02/12/17 02/12/17 02/12/17 08:00 10:25 11:42 WBC 15.4 H RBC 2.63 L Hgb 6.9 L Hct 22.6 L MCV MCH 26 L MCHC RDW 20.5 H Plt Count Lymph % (Auto) [place] % (Auto) Lymph # [place] # Baso # Seg Neutrophils % Seg Neuts % (Manual) Lymphocytes % (Manual) Monocytes % (Manual) Eosinophils % (Manual) Basophils % (Manual) Nucleated RBC % Seg Neutrophils # Seg Neutrophils # Man Lymphocytes # (Manual) Monocytes # (Manual) Eosinophils # (Manual) Basophils # (Manual) PT INR Fibrinogen dRVVT Confirm Interp Factor V Activity POC ABG pH POC ABG pCO2 POC ABG pO2 ABG pO2 ABG HCO3 ABG Base Excess ABG Hemoglobin Oxyhemoglobin Sodium Potassium Chloride Carbon Dioxide BUN Creatinine Glucose POC Glucose 142 H Lactic Acid Calcium Ionized Calcium Phosphorus Magnesium Direct Bilirubin AST ALT Alkaline Phosphatase Lactate Dehydrogenase Troponin T C-Reactive Protein Total Protein Albumin Prealbumin Triglycerides Cholesterol LDL Cholesterol Direct HDL Cholesterol 25-OH Vitamin D Total PTH Intact Urine pH Urine WBC (Auto) Urine Creatinine Urine Total Protein Fluid Total Protein Vancomycin Trough Rheumatoid Factor Complement C4 Miscellaneous Test Crossmatch See Detail 02/12/17 02/13/17 02/13/17 18:04 00:04 05:00 WBC RBC Hgb Hct MCV MCH MCHC RDW Plt Count Lymph % (Auto) [place] % (Auto) Lymph # [place] # Baso # Seg Neutrophils % Seg Neuts % (Manual) Lymphocytes % (Manual) Monocytes % (Manual) Eosinophils % (Manual) Basophils % (Manual) Nucleated RBC % Seg Neutrophils # Seg Neutrophils # Man Lymphocytes # (Manual) Monocytes # (Manual) Eosinophils # (Manual) Basophils # (Manual) PT INR Fibrinogen dRVVT Confirm Interp Factor V Activity POC ABG pH POC ABG pCO2 POC ABG pO2 ABG pO2 ABG HCO3 ABG Base Excess ABG Hemoglobin Oxyhemoglobin Sodium 134 L Potassium Chloride 96.1 L Carbon Dioxide 20 L BUN 125 H Creatinine 3.0 H Glucose 111 H POC Glucose 135 H 109 H Lactic Acid Calcium 11.3 H Ionized Calcium Phosphorus Magnesium Direct Bilirubin AST ALT Alkaline Phosphatase Lactate Dehydrogenase Troponin T C-Reactive Protein Total Protein Albumin Prealbumin Triglycerides Cholesterol LDL Cholesterol Direct HDL Cholesterol 25-OH Vitamin D Total PTH Intact Urine pH Urine WBC (Auto) Urine Creatinine Urine Total Protein Fluid Total Protein Vancomycin Trough Rheumatoid Factor Complement C4 Miscellaneous Test Crossmatch 02/13/17 02/13/17 02/13/17 05:00 05:28 12:03 WBC 11.9 H RBC 2.92 L Hgb 7.8 L Hct 25.2 L MCV MCH 27 L MCHC RDW 19.3 H Plt Count Lymph % (Auto) [place] % (Auto) Lymph # [place] # Baso # Seg Neutrophils % Seg Neuts % (Manual) Lymphocytes % (Manual) Monocytes % (Manual) Eosinophils % (Manual) Basophils % (Manual) Nucleated RBC % Seg Neutrophils # Seg Neutrophils # Man Lymphocytes # (Manual) Monocytes # (Manual) Eosinophils # (Manual) Basophils # (Manual) PT INR Fibrinogen dRVVT Confirm Interp Factor V Activity POC ABG pH POC ABG pCO2 POC ABG pO2 ABG pO2 ABG HCO3 ABG Base Excess ABG Hemoglobin Oxyhemoglobin Sodium Potassium Chloride Carbon Dioxide BUN Creatinine Glucose POC Glucose 124 H 160 H Lactic Acid Calcium Ionized Calcium Phosphorus Magnesium Direct Bilirubin AST ALT Alkaline Phosphatase Lactate Dehydrogenase Troponin T C-Reactive Protein Total Protein Albumin Prealbumin Triglycerides Cholesterol LDL Cholesterol Direct HDL Cholesterol 25-OH Vitamin D Total PTH Intact Urine pH Urine WBC (Auto) Urine Creatinine Urine Total Protein Fluid Total Protein Vancomycin Trough Rheumatoid Factor Complement C4 Miscellaneous Test Crossmatch 02/13/17 02/14/17 02/14/17 18:09 06:16 08:08 WBC 15.2 H RBC 2.97 L Hgb 8.1 L Hct 26.3 L MCV MCH MCHC RDW 19.3 H Plt Count Lymph % (Auto) [place] % (Auto) Lymph # [place] # Baso # Seg Neutrophils % Seg Neuts % (Manual) Lymphocytes % (Manual) Monocytes % (Manual) Eosinophils % (Manual) Basophils % (Manual) Nucleated RBC % Seg Neutrophils # Seg Neutrophils # Man Lymphocytes # (Manual) Monocytes # (Manual) Eosinophils # (Manual) Basophils # (Manual) PT INR Fibrinogen dRVVT Confirm Interp Factor V Activity POC ABG pH POC ABG pCO2 POC ABG pO2 ABG pO2 ABG HCO3 ABG Base Excess ABG Hemoglobin Oxyhemoglobin Sodium Potassium Chloride Carbon Dioxide BUN Creatinine Glucose POC Glucose 110 H 112 H Lactic Acid Calcium Ionized Calcium Phosphorus Magnesium Direct Bilirubin AST ALT Alkaline Phosphatase Lactate Dehydrogenase Troponin T C-Reactive Protein Total Protein Albumin Prealbumin Triglycerides Cholesterol LDL Cholesterol Direct HDL Cholesterol 25-OH Vitamin D Total PTH Intact Urine pH Urine WBC (Auto) Urine Creatinine Urine Total Protein Fluid Total Protein Vancomycin Trough Rheumatoid Factor Complement C4 Miscellaneous Test Crossmatch 02/14/17 02/14/17 02/15/17 08:08 17:41 04:15 WBC RBC Hgb Hct MCV MCH MCHC RDW Plt Count Lymph % (Auto) [place] % (Auto) Lymph # [place] # Baso # Seg Neutrophils % Seg Neuts % (Manual) Lymphocytes % (Manual) Monocytes % (Manual) Eosinophils % (Manual) Basophils % (Manual) Nucleated RBC % Seg Neutrophils # Seg Neutrophils # Man Lymphocytes # (Manual) Monocytes # (Manual) Eosinophils # (Manual) Basophils # (Manual) PT INR Fibrinogen dRVVT Confirm Interp Factor V Activity POC ABG pH POC ABG pCO2 POC ABG pO2 ABG pO2 ABG HCO3 ABG Base Excess ABG Hemoglobin Oxyhemoglobin Sodium Potassium Chloride Carbon Dioxide 18 L 21 L BUN 79 H 113 H Creatinine 2.1 H 2.8 H Glucose POC Glucose 118 H Lactic Acid Calcium 10.7 H Ionized Calcium Phosphorus 1.70 L D Magnesium 1.60 L Direct Bilirubin AST ALT Alkaline Phosphatase Lactate Dehydrogenase Troponin T C-Reactive Protein Total Protein Albumin Prealbumin Triglycerides Cholesterol LDL Cholesterol Direct HDL Cholesterol 25-OH Vitamin D Total PTH Intact Urine pH Urine WBC (Auto) Urine Creatinine Urine Total Protein Fluid Total Protein Vancomycin Trough Rheumatoid Factor Complement C4 Miscellaneous Test Crossmatch 02/15/17 02/15/17 02/15/17 06:06 11:31 17:52 WBC RBC Hgb Hct MCV MCH MCHC RDW Plt Count Lymph % (Auto) [place] % (Auto) Lymph # [place] # Baso # Seg Neutrophils % Seg Neuts % (Manual) Lymphocytes % (Manual) Monocytes % (Manual) Eosinophils % (Manual) Basophils % (Manual) Nucleated RBC % Seg Neutrophils # Seg Neutrophils # Man Lymphocytes # (Manual) Monocytes # (Manual) Eosinophils # (Manual) Basophils # (Manual) PT INR Fibrinogen dRVVT Confirm Interp Factor V Activity POC ABG pH POC ABG pCO2 POC ABG pO2 ABG pO2 ABG HCO3 ABG Base Excess ABG Hemoglobin Oxyhemoglobin Sodium Potassium Chloride Carbon Dioxide BUN Creatinine Glucose POC Glucose 115 H 129 H 201 H Lactic Acid Calcium Ionized Calcium Phosphorus Magnesium Direct Bilirubin AST ALT Alkaline Phosphatase Lactate Dehydrogenase Troponin T C-Reactive Protein Total Protein Albumin Prealbumin Triglycerides Cholesterol LDL Cholesterol Direct HDL Cholesterol 25-OH Vitamin D Total PTH Intact Urine pH Urine WBC (Auto) Urine Creatinine Urine Total Protein Fluid Total Protein Vancomycin Trough Rheumatoid Factor Complement C4 Miscellaneous Test Crossmatch 02/15/17 02/15/17 02/15/17 19:08 19:08 19:08 WBC RBC Hgb Hct MCV MCH MCHC RDW Plt Count Lymph % (Auto) [place] % (Auto) Lymph # [place] # Baso # Seg Neutrophils % Seg Neuts % (Manual) Lymphocytes % (Manual) Monocytes % (Manual) Eosinophils % (Manual) Basophils % (Manual) Nucleated RBC % Seg Neutrophils # Seg Neutrophils # Man Lymphocytes # (Manual) Monocytes # (Manual) Eosinophils # (Manual) Basophils # (Manual) PT INR Fibrinogen dRVVT Confirm Interp Factor V Activity POC ABG pH POC ABG pCO2 POC ABG pO2 ABG pO2 ABG HCO3 ABG Base Excess ABG Hemoglobin Oxyhemoglobin Sodium Potassium Chloride Carbon Dioxide BUN Creatinine Glucose POC Glucose Lactic Acid Calcium Ionized Calcium 6.0 H Phosphorus Magnesium Direct Bilirubin AST ALT Alkaline Phosphatase Lactate Dehydrogenase Troponin T C-Reactive Protein Total Protein Albumin Prealbumin Triglycerides Cholesterol LDL Cholesterol Direct HDL Cholesterol 25-OH Vitamin D Total 13 L PTH Intact 10.88 L Urine pH Urine WBC (Auto) Urine Creatinine Urine Total Protein Fluid Total Protein Vancomycin Trough Rheumatoid Factor Complement C4 Miscellaneous Test Crossmatch 02/16/17 02/16/17 02/16/17 05:12 06:00 12:39 WBC RBC Hgb Hct MCV MCH MCHC RDW Plt Count Lymph % (Auto) [place] % (Auto) Lymph # [place] # Baso # Seg Neutrophils % Seg Neuts % (Manual) Lymphocytes % (Manual) Monocytes % (Manual) Eosinophils % (Manual) Basophils % (Manual) Nucleated RBC % Seg Neutrophils # Seg Neutrophils # Man Lymphocytes # (Manual) Monocytes # (Manual) Eosinophils # (Manual) Basophils # (Manual) PT INR Fibrinogen dRVVT Confirm Interp Factor V Activity POC ABG pH POC ABG pCO2 POC ABG pO2 ABG pO2 ABG HCO3 ABG Base Excess ABG Hemoglobin Oxyhemoglobin Sodium Potassium Chloride Carbon Dioxide BUN 74 H Creatinine 1.7 H Glucose 102 H POC Glucose 125 H 109 H Lactic Acid Calcium Ionized Calcium Phosphorus 2.10 L D Magnesium Direct Bilirubin AST ALT Alkaline Phosphatase Lactate Dehydrogenase Troponin T C-Reactive Protein Total Protein Albumin Prealbumin Triglycerides Cholesterol LDL Cholesterol Direct HDL Cholesterol 25-OH Vitamin D Total PTH Intact Urine pH Urine WBC (Auto) Urine Creatinine Urine Total Protein Fluid Total Protein Vancomycin Trough Rheumatoid Factor Complement C4 Miscellaneous Test Crossmatch 02/16/17 02/16/17 02/17/17 17:31 23:57 05:30 WBC RBC Hgb Hct MCV MCH MCHC RDW Plt Count Lymph % (Auto) [place] % (Auto) Lymph # [place] # Baso # Seg Neutrophils % Seg Neuts % (Manual) Lymphocytes % (Manual) Monocytes % (Manual) Eosinophils % (Manual) Basophils % (Manual) Nucleated RBC % Seg Neutrophils # Seg Neutrophils # Man Lymphocytes # (Manual) Monocytes # (Manual) Eosinophils # (Manual) Basophils # (Manual) PT INR Fibrinogen dRVVT Confirm Interp Factor V Activity POC ABG pH POC ABG pCO2 POC ABG pO2 ABG pO2 ABG HCO3 ABG Base Excess ABG Hemoglobin Oxyhemoglobin Sodium Potassium Chloride Carbon Dioxide BUN Creatinine Glucose POC Glucose 106 H 127 H 122 H Lactic Acid Calcium Ionized Calcium Phosphorus Magnesium Direct Bilirubin AST ALT Alkaline Phosphatase Lactate Dehydrogenase Troponin T C-Reactive Protein Total Protein Albumin Prealbumin Triglycerides Cholesterol LDL Cholesterol Direct HDL Cholesterol 25-OH Vitamin D Total PTH Intact Urine pH Urine WBC (Auto) Urine Creatinine Urine Total Protein Fluid Total Protein Vancomycin Trough Rheumatoid Factor Complement C4 Miscellaneous Test Crossmatch 02/17/17 02/17/17 02/17/17 06:00 12:17 17:57 WBC RBC Hgb Hct MCV MCH MCHC RDW Plt Count Lymph % (Auto) [place] % (Auto) Lymph # [place] # Baso # Seg Neutrophils % Seg Neuts % (Manual) Lymphocytes % (Manual) Monocytes % (Manual) Eosinophils % (Manual) Basophils % (Manual) Nucleated RBC % Seg Neutrophils # Seg Neutrophils # Man Lymphocytes # (Manual) Monocytes # (Manual) Eosinophils # (Manual) Basophils # (Manual) PT INR Fibrinogen dRVVT Confirm Interp Factor V Activity POC ABG pH POC ABG pCO2 POC ABG pO2 ABG pO2 ABG HCO3 ABG Base Excess ABG Hemoglobin Oxyhemoglobin Sodium Potassium Chloride Carbon Dioxide BUN 94 H Creatinine 2.3 H Glucose 106 H POC Glucose 173 H 140 H Lactic Acid Calcium Ionized Calcium Phosphorus Magnesium Direct Bilirubin AST ALT Alkaline Phosphatase Lactate Dehydrogenase Troponin T C-Reactive Protein Total Protein Albumin Prealbumin Triglycerides Cholesterol LDL Cholesterol Direct HDL Cholesterol 25-OH Vitamin D Total PTH Intact Urine pH Urine WBC (Auto) Urine Creatinine Urine Total Protein Fluid Total Protein Vancomycin Trough Rheumatoid Factor Complement C4 Miscellaneous Test Crossmatch 02/18/17 02/18/17 02/18/17 00:20 05:30 06:14 WBC RBC Hgb Hct MCV MCH MCHC RDW Plt Count Lymph % (Auto) [place] % (Auto) Lymph # [place] # Baso # Seg Neutrophils % Seg Neuts % (Manual) Lymphocytes % (Manual) Monocytes % (Manual) Eosinophils % (Manual) Basophils % (Manual) Nucleated RBC % Seg Neutrophils # Seg Neutrophils # Man Lymphocytes # (Manual) Monocytes # (Manual) Eosinophils # (Manual) Basophils # (Manual) PT INR Fibrinogen dRVVT Confirm Interp Factor V Activity POC ABG pH POC ABG pCO2 POC ABG pO2 ABG pO2 ABG HCO3 ABG Base Excess ABG Hemoglobin Oxyhemoglobin Sodium 136 L Potassium Chloride 97.5 L Carbon Dioxide BUN 73 H Creatinine 1.9 H Glucose POC Glucose 132 H 106 H Lactic Acid Calcium Ionized Calcium Phosphorus Magnesium Direct Bilirubin AST ALT Alkaline Phosphatase Lactate Dehydrogenase Troponin T C-Reactive Protein Total Protein Albumin Prealbumin Triglycerides Cholesterol LDL Cholesterol Direct HDL Cholesterol 25-OH Vitamin D Total PTH Intact Urine pH Urine WBC (Auto) Urine Creatinine Urine Total Protein Fluid Total Protein Vancomycin Trough Rheumatoid Factor Complement C4 Miscellaneous Test Crossmatch 02/18/17 02/18/17 02/18/17 09:51 11:32 17:59 WBC 13.1 H RBC 2.77 L Hgb 7.6 L Hct 23.9 L MCV MCH MCHC RDW 19.0 H Plt Count Lymph % (Auto) [place] % (Auto) 11.1 H Lymph # [place] # 1.5 H Baso # Seg Neutrophils % Seg Neuts % (Manual) Lymphocytes % (Manual) Monocytes % (Manual) Eosinophils % (Manual) Basophils % (Manual) Nucleated RBC % Seg Neutrophils # 9.1 H Seg Neutrophils # Man Lymphocytes # (Manual) Monocytes # (Manual) Eosinophils # (Manual) Basophils # (Manual) PT INR Fibrinogen dRVVT Confirm Interp Factor V Activity POC ABG pH POC ABG pCO2 POC ABG pO2 ABG pO2 ABG HCO3 ABG Base Excess ABG Hemoglobin Oxyhemoglobin Sodium Potassium Chloride Carbon Dioxide BUN Creatinine Glucose POC Glucose 123 H 119 H Lactic Acid Calcium Ionized Calcium Phosphorus Magnesium Direct Bilirubin AST ALT Alkaline Phosphatase Lactate Dehydrogenase Troponin T C-Reactive Protein Total Protein Albumin Prealbumin Triglycerides Cholesterol LDL Cholesterol Direct HDL Cholesterol 25-OH Vitamin D Total PTH Intact Urine pH Urine WBC (Auto) Urine Creatinine Urine Total Protein Fluid Total Protein Vancomycin Trough Rheumatoid Factor Complement C4 Miscellaneous Test Crossmatch 02/18/17 02/19/17 02/19/17 23:47 05:36 09:45 WBC RBC Hgb Hct MCV MCH 27 L MCHC RDW 19.2 H Plt Count Lymph % (Auto) [place] % (Auto) Lymph # [place] # Baso # Seg Neutrophils % Seg Neuts % (Manual) Lymphocytes % (Manual) Monocytes % (Manual) Eosinophils % (Manual) Basophils % (Manual) Nucleated RBC % Seg Neutrophils # Seg Neutrophils # Man Lymphocytes # (Manual) Monocytes # (Manual) Eosinophils # (Manual) Basophils # (Manual) PT INR Fibrinogen dRVVT Confirm Interp Factor V Activity POC ABG pH POC ABG pCO2 POC ABG pO2 ABG pO2 ABG HCO3 ABG Base Excess ABG Hemoglobin Oxyhemoglobin Sodium Potassium Chloride Carbon Dioxide BUN Creatinine Glucose POC Glucose 110 H 121 H Lactic Acid Calcium Ionized Calcium Phosphorus Magnesium Direct Bilirubin AST ALT Alkaline Phosphatase Lactate Dehydrogenase Troponin T C-Reactive Protein Total Protein Albumin Prealbumin Triglycerides Cholesterol LDL Cholesterol Direct HDL Cholesterol 25-OH Vitamin D Total PTH Intact Urine pH Urine WBC (Auto) Urine Creatinine Urine Total Protein Fluid Total Protein Vancomycin Trough Rheumatoid Factor Complement C4 Miscellaneous Test Crossmatch 02/19/17 02/20/17 02/20/17 09:45 00:10 06:15 WBC RBC Hgb Hct MCV MCH MCHC RDW Plt Count Lymph % (Auto) [place] % (Auto) Lymph # [place] # Baso # Seg Neutrophils % Seg Neuts % (Manual) Lymphocytes % (Manual) Monocytes % (Manual) Eosinophils % (Manual) Basophils % (Manual) Nucleated RBC % Seg Neutrophils # Seg Neutrophils # Man Lymphocytes # (Manual) Monocytes # (Manual) Eosinophils # (Manual) Basophils # (Manual) PT INR Fibrinogen dRVVT Confirm Interp Factor V Activity POC ABG pH POC ABG pCO2 POC ABG pO2 ABG pO2 ABG HCO3 ABG Base Excess ABG Hemoglobin Oxyhemoglobin Sodium 136 L Potassium 5.1 H Chloride 97.6 L Carbon Dioxide 20 L 18 L BUN 110 H 135 H Creatinine 2.6 H 3.2 H Glucose 106 H 110 H POC Glucose 117 H Lactic Acid Calcium Ionized Calcium Phosphorus 4.70 H D 5.60 H Magnesium Direct Bilirubin AST ALT Alkaline Phosphatase Lactate Dehydrogenase Troponin T C-Reactive Protein Total Protein Albumin Prealbumin Triglycerides Cholesterol LDL Cholesterol Direct HDL Cholesterol 25-OH Vitamin D Total PTH Intact Urine pH Urine WBC (Auto) Urine Creatinine Urine Total Protein Fluid Total Protein Vancomycin Trough Rheumatoid Factor Complement C4 Miscellaneous Test Crossmatch 02/20/17 02/20/17 02/21/17 11:30 17:51 00:14 WBC RBC Hgb Hct MCV MCH MCHC RDW Plt Count Lymph % (Auto) [place] % (Auto) Lymph # [place] # Baso # Seg Neutrophils % Seg Neuts % (Manual) Lymphocytes % (Manual) Monocytes % (Manual) Eosinophils % (Manual) Basophils % (Manual) Nucleated RBC % Seg Neutrophils # Seg Neutrophils # Man Lymphocytes # (Manual) Monocytes # (Manual) Eosinophils # (Manual) Basophils # (Manual) PT INR Fibrinogen dRVVT Confirm Interp Factor V Activity POC ABG pH POC ABG pCO2 POC ABG pO2 ABG pO2 ABG HCO3 ABG Base Excess ABG Hemoglobin Oxyhemoglobin Sodium Potassium Chloride Carbon Dioxide BUN Creatinine Glucose POC Glucose 173 H 133 H 125 H Lactic Acid Calcium Ionized Calcium Phosphorus Magnesium Direct Bilirubin AST ALT Alkaline Phosphatase Lactate Dehydrogenase Troponin T C-Reactive Protein Total Protein Albumin Prealbumin Triglycerides Cholesterol LDL Cholesterol Direct HDL Cholesterol 25-OH Vitamin D Total PTH Intact Urine pH Urine WBC (Auto) Urine Creatinine Urine Total Protein Fluid Total Protein Vancomycin Trough Rheumatoid Factor Complement C4 Miscellaneous Test Crossmatch 02/21/17 02/21/17 02/21/17 04:09 05:03 11:58 WBC RBC Hgb Hct MCV MCH MCHC RDW Plt Count Lymph % (Auto) [place] % (Auto) Lymph # [place] # Baso # Seg Neutrophils % Seg Neuts % (Manual) Lymphocytes % (Manual) Monocytes % (Manual) Eosinophils % (Manual) Basophils % (Manual) Nucleated RBC % Seg Neutrophils # Seg Neutrophils # Man Lymphocytes # (Manual) Monocytes # (Manual) Eosinophils # (Manual) Basophils # (Manual) PT INR Fibrinogen dRVVT Confirm Interp Factor V Activity POC ABG pH POC ABG pCO2 POC ABG pO2 ABG pO2 ABG HCO3 ABG Base Excess ABG Hemoglobin Oxyhemoglobin Sodium 135 L Potassium Chloride Carbon Dioxide 20 L BUN 76 H Creatinine 2.0 H Glucose 125 H POC Glucose 134 H 139 H Lactic Acid Calcium Ionized Calcium Phosphorus Magnesium Direct Bilirubin AST ALT Alkaline Phosphatase Lactate Dehydrogenase Troponin T C-Reactive Protein Total Protein Albumin Prealbumin Triglycerides Cholesterol LDL Cholesterol Direct HDL Cholesterol 25-OH Vitamin D Total PTH Intact Urine pH Urine WBC (Auto) Urine Creatinine Urine Total Protein Fluid Total Protein Vancomycin Trough Rheumatoid Factor Complement C4 Miscellaneous Test Crossmatch 02/21/17 02/21/17 02/22/17 17:16 23:41 04:10 WBC RBC Hgb Hct MCV MCH MCHC RDW Plt Count Lymph % (Auto) [place] % (Auto) Lymph # [place] # Baso # Seg Neutrophils % Seg Neuts % (Manual) Lymphocytes % (Manual) Monocytes % (Manual) Eosinophils % (Manual) Basophils % (Manual) Nucleated RBC % Seg Neutrophils # Seg Neutrophils # Man Lymphocytes # (Manual) Monocytes # (Manual) Eosinophils # (Manual) Basophils # (Manual) PT INR Fibrinogen dRVVT Confirm Interp Factor V Activity POC ABG pH POC ABG pCO2 POC ABG pO2 ABG pO2 ABG HCO3 ABG Base Excess ABG Hemoglobin Oxyhemoglobin Sodium 135 L Potassium Chloride 97.7 L Carbon Dioxide 21 L BUN 101 H Creatinine 2.5 H Glucose 116 H POC Glucose 120 H 128 H Lactic Acid Calcium Ionized Calcium Phosphorus Magnesium Direct Bilirubin AST ALT Alkaline Phosphatase Lactate Dehydrogenase Troponin T C-Reactive Protein Total Protein Albumin 1.3 L Prealbumin Triglycerides Cholesterol LDL Cholesterol Direct HDL Cholesterol 25-OH Vitamin D Total PTH Intact Urine pH Urine WBC (Auto) Urine Creatinine Urine Total Protein Fluid Total Protein Vancomycin Trough Rheumatoid Factor Complement C4 Miscellaneous Test Crossmatch 02/22/17 02/22/17 02/22/17 06:03 11:38 18:19 WBC RBC Hgb Hct MCV MCH MCHC RDW Plt Count Lymph % (Auto) [place] % (Auto) Lymph # [place] # Baso # Seg Neutrophils % Seg Neuts % (Manual) Lymphocytes % (Manual) Monocytes % (Manual) Eosinophils % (Manual) Basophils % (Manual) Nucleated RBC % Seg Neutrophils # Seg Neutrophils # Man Lymphocytes # (Manual) Monocytes # (Manual) Eosinophils # (Manual) Basophils # (Manual) PT INR Fibrinogen dRVVT Confirm Interp Factor V Activity POC ABG pH POC ABG pCO2 POC ABG pO2 ABG pO2 ABG HCO3 ABG Base Excess ABG Hemoglobin Oxyhemoglobin Sodium Potassium Chloride Carbon Dioxide BUN Creatinine Glucose POC Glucose 126 H 147 H 121 H Lactic Acid Calcium Ionized Calcium Phosphorus Magnesium Direct Bilirubin AST ALT Alkaline Phosphatase Lactate Dehydrogenase Troponin T C-Reactive Protein Total Protein Albumin Prealbumin Triglycerides Cholesterol LDL Cholesterol Direct HDL Cholesterol 25-OH Vitamin D Total PTH Intact Urine pH Urine WBC (Auto) Urine Creatinine Urine Total Protein Fluid Total Protein Vancomycin Trough Rheumatoid Factor Complement C4 Miscellaneous Test Crossmatch 02/23/17 02/23/17 02/23/17 05:00 05:46 12:27 WBC RBC Hgb Hct MCV MCH MCHC RDW Plt Count Lymph % (Auto) [place] % (Auto) Lymph # [place] # Baso # Seg Neutrophils % Seg Neuts % (Manual) Lymphocytes % (Manual) Monocytes % (Manual) Eosinophils % (Manual) Basophils % (Manual) Nucleated RBC % Seg Neutrophils # Seg Neutrophils # Man Lymphocytes # (Manual) Monocytes # (Manual) Eosinophils # (Manual) Basophils # (Manual) PT INR Fibrinogen dRVVT Confirm Interp Factor V Activity POC ABG pH POC ABG pCO2 POC ABG pO2 ABG pO2 ABG HCO3 ABG Base Excess ABG Hemoglobin Oxyhemoglobin Sodium 136 L Potassium Chloride 97.1 L Carbon Dioxide BUN 50 H Creatinine 1.5 H Glucose POC Glucose 110 H 115 H Lactic Acid Calcium 8.1 L Ionized Calcium Phosphorus 1.90 L D Magnesium Direct Bilirubin AST ALT Alkaline Phosphatase Lactate Dehydrogenase Troponin T C-Reactive Protein Total Protein Albumin Prealbumin Triglycerides Cholesterol LDL Cholesterol Direct HDL Cholesterol 25-OH Vitamin D Total PTH Intact Urine pH Urine WBC (Auto) Urine Creatinine Urine Total Protein Fluid Total Protein Vancomycin Trough Rheumatoid Factor Complement C4 Miscellaneous Test Crossmatch 02/23/17 02/23/17 02/24/17 18:02 23:18 05:04 WBC RBC Hgb Hct MCV MCH MCHC RDW Plt Count Lymph % (Auto) [place] % (Auto) Lymph # [place] # Baso # Seg Neutrophils % Seg Neuts % (Manual) Lymphocytes % (Manual) Monocytes % (Manual) Eosinophils % (Manual) Basophils % (Manual) Nucleated RBC % Seg Neutrophils # Seg Neutrophils # Man Lymphocytes # (Manual) Monocytes # (Manual) Eosinophils # (Manual) Basophils # (Manual) PT INR Fibrinogen dRVVT Confirm Interp Factor V Activity POC ABG pH POC ABG pCO2 POC ABG pO2 ABG pO2 ABG HCO3 ABG Base Excess ABG Hemoglobin Oxyhemoglobin Sodium Potassium Chloride Carbon Dioxide BUN Creatinine Glucose POC Glucose 111 H 126 H 121 H Lactic Acid Calcium Ionized Calcium Phosphorus Magnesium Direct Bilirubin AST ALT Alkaline Phosphatase Lactate Dehydrogenase Troponin T C-Reactive Protein Total Protein Albumin Prealbumin Triglycerides Cholesterol LDL Cholesterol Direct HDL Cholesterol 25-OH Vitamin D Total PTH Intact Urine pH Urine WBC (Auto) Urine Creatinine Urine Total Protein Fluid Total Protein Vancomycin Trough Rheumatoid Factor Complement C4 Miscellaneous Test Crossmatch 02/24/17 02/24/17 02/24/17 05:20 10:05 11:34 WBC RBC 2.95 L Hgb 8.4 L Hct 25.7 L MCV MCH MCHC RDW 20.8 H Plt Count Lymph % (Auto) [place] % (Auto) Lymph # [place] # Baso # Seg Neutrophils % 71.8 H Seg Neuts % (Manual) Lymphocytes % (Manual) Monocytes % (Manual) Eosinophils % (Manual) Basophils % (Manual) Nucleated RBC % Seg Neutrophils # Seg Neutrophils # Man Lymphocytes # (Manual) Monocytes # (Manual) Eosinophils # (Manual) Basophils # (Manual) PT INR Fibrinogen dRVVT Confirm Interp Factor V Activity POC ABG pH POC ABG pCO2 POC ABG pO2 ABG pO2 ABG HCO3 ABG Base Excess ABG Hemoglobin Oxyhemoglobin Sodium 136 L Potassium Chloride 95.5 L Carbon Dioxide BUN 76 H Creatinine 2.2 H Glucose 109 H POC Glucose 123 H Lactic Acid Calcium Ionized Calcium Phosphorus Magnesium Direct Bilirubin AST ALT Alkaline Phosphatase Lactate Dehydrogenase Troponin T C-Reactive Protein Total Protein Albumin Prealbumin Triglycerides Cholesterol LDL Cholesterol Direct HDL Cholesterol 25-OH Vitamin D Total PTH Intact Urine pH Urine WBC (Auto) Urine Creatinine Urine Total Protein Fluid Total Protein Vancomycin Trough Rheumatoid Factor Complement C4 Miscellaneous Test Crossmatch 02/24/17 02/24/17 02/25/17 17:43 23:02 05:00 WBC RBC Hgb Hct MCV MCH MCHC RDW Plt Count Lymph % (Auto) [place] % (Auto) Lymph # [place] # Baso # Seg Neutrophils % Seg Neuts % (Manual) Lymphocytes % (Manual) Monocytes % (Manual) Eosinophils % (Manual) Basophils % (Manual) Nucleated RBC % Seg Neutrophils # Seg Neutrophils # Man Lymphocytes # (Manual) Monocytes # (Manual) Eosinophils # (Manual) Basophils # (Manual) PT INR Fibrinogen dRVVT Confirm Interp Factor V Activity POC ABG pH POC ABG pCO2 POC ABG pO2 ABG pO2 ABG HCO3 ABG Base Excess ABG Hemoglobin Oxyhemoglobin Sodium Potassium Chloride 96.8 L Carbon Dioxide BUN 94 H Creatinine 2.8 H Glucose 118 H POC Glucose 128 H 144 H Lactic Acid Calcium Ionized Calcium Phosphorus Magnesium Direct Bilirubin AST ALT Alkaline Phosphatase Lactate Dehydrogenase Troponin T C-Reactive Protein Total Protein Albumin Prealbumin Triglycerides Cholesterol LDL Cholesterol Direct HDL Cholesterol 25-OH Vitamin D Total PTH Intact Urine pH Urine WBC (Auto) Urine Creatinine Urine Total Protein Fluid Total Protein Vancomycin Trough Rheumatoid Factor Complement C4 Miscellaneous Test Crossmatch 02/25/17 02/25/17 02/25/17 05:32 11:44 18:18 WBC RBC Hgb Hct MCV MCH MCHC RDW Plt Count Lymph % (Auto) [place] % (Auto) Lymph # [place] # Baso # Seg Neutrophils % Seg Neuts % (Manual) Lymphocytes % (Manual) Monocytes % (Manual) Eosinophils % (Manual) Basophils % (Manual) Nucleated RBC % Seg Neutrophils # Seg Neutrophils # Man Lymphocytes # (Manual) Monocytes # (Manual) Eosinophils # (Manual) Basophils # (Manual) PT INR Fibrinogen dRVVT Confirm Interp Factor V Activity POC ABG pH POC ABG pCO2 POC ABG pO2 ABG pO2 ABG HCO3 ABG Base Excess ABG Hemoglobin Oxyhemoglobin Sodium Potassium Chloride Carbon Dioxide BUN Creatinine Glucose POC Glucose 118 H 106 H 210 H Lactic Acid Calcium Ionized Calcium Phosphorus Magnesium Direct Bilirubin AST ALT Alkaline Phosphatase Lactate Dehydrogenase Troponin T C-Reactive Protein Total Protein Albumin Prealbumin Triglycerides Cholesterol LDL Cholesterol Direct HDL Cholesterol 25-OH Vitamin D Total PTH Intact Urine pH Urine WBC (Auto) Urine Creatinine Urine Total Protein Fluid Total Protein Vancomycin Trough Rheumatoid Factor Complement C4 Miscellaneous Test Crossmatch 02/26/17 02/26/17 02/26/17 00:07 05:14 12:07 WBC RBC Hgb Hct MCV MCH MCHC RDW Plt Count Lymph % (Auto) [place] % (Auto) Lymph # [place] # Baso # Seg Neutrophils % Seg Neuts % (Manual) Lymphocytes % (Manual) Monocytes % (Manual) Eosinophils % (Manual) Basophils % (Manual) Nucleated RBC % Seg Neutrophils # Seg Neutrophils # Man Lymphocytes # (Manual) Monocytes # (Manual) Eosinophils # (Manual) Basophils # (Manual) PT INR Fibrinogen dRVVT Confirm Interp Factor V Activity POC ABG pH POC ABG pCO2 POC ABG pO2 ABG pO2 ABG HCO3 ABG Base Excess ABG Hemoglobin Oxyhemoglobin Sodium Potassium Chloride Carbon Dioxide BUN Creatinine Glucose POC Glucose 136 H 142 H 132 H Lactic Acid Calcium Ionized Calcium Phosphorus Magnesium Direct Bilirubin AST ALT Alkaline Phosphatase Lactate Dehydrogenase Troponin T C-Reactive Protein Total Protein Albumin Prealbumin Triglycerides Cholesterol LDL Cholesterol Direct HDL Cholesterol 25-OH Vitamin D Total PTH Intact Urine pH Urine WBC (Auto) Urine Creatinine Urine Total Protein Fluid Total Protein Vancomycin Trough Rheumatoid Factor Complement C4 Miscellaneous Test Crossmatch 02/26/17 02/26/17 02/27/17 18:35 23:54 06:25 WBC RBC Hgb Hct MCV MCH MCHC RDW Plt Count Lymph % (Auto) [place] % (Auto) Lymph # [place] # Baso # Seg Neutrophils % Seg Neuts % (Manual) Lymphocytes % (Manual) Monocytes % (Manual) Eosinophils % (Manual) Basophils % (Manual) Nucleated RBC % Seg Neutrophils # Seg Neutrophils # Man Lymphocytes # (Manual) Monocytes # (Manual) Eosinophils # (Manual) Basophils # (Manual) PT INR Fibrinogen dRVVT Confirm Interp Factor V Activity POC ABG pH POC ABG pCO2 POC ABG pO2 ABG pO2 ABG HCO3 ABG Base Excess ABG Hemoglobin Oxyhemoglobin Sodium Potassium Chloride Carbon Dioxide BUN Creatinine Glucose POC Glucose 155 H 150 H 138 H Lactic Acid Calcium Ionized Calcium Phosphorus Magnesium Direct Bilirubin AST ALT Alkaline Phosphatase Lactate Dehydrogenase Troponin T C-Reactive Protein Total Protein Albumin Prealbumin Triglycerides Cholesterol LDL Cholesterol Direct HDL Cholesterol 25-OH Vitamin D Total PTH Intact Urine pH Urine WBC (Auto) Urine Creatinine Urine Total Protein Fluid Total Protein Vancomycin Trough Rheumatoid Factor Complement C4 Miscellaneous Test Crossmatch 02/27/17 02/27/17 02/27/17 08:50 11:50 17:38 WBC RBC Hgb Hct MCV MCH MCHC RDW Plt Count Lymph % (Auto) [place] % (Auto) Lymph # [place] # Baso # Seg Neutrophils % Seg Neuts % (Manual) Lymphocytes % (Manual) Monocytes % (Manual) Eosinophils % (Manual) Basophils % (Manual) Nucleated RBC % Seg Neutrophils # Seg Neutrophils # Man Lymphocytes # (Manual) Monocytes # (Manual) Eosinophils # (Manual) Basophils # (Manual) PT INR Fibrinogen dRVVT Confirm Interp Factor V Activity POC ABG pH POC ABG pCO2 POC ABG pO2 ABG pO2 ABG HCO3 ABG Base Excess ABG Hemoglobin Oxyhemoglobin Sodium Potassium 3.2 L Chloride Carbon Dioxide BUN 95 H Creatinine 2.7 H Glucose 179 H POC Glucose 150 H 133 H Lactic Acid Calcium Ionized Calcium Phosphorus Magnesium Direct Bilirubin AST ALT Alkaline Phosphatase Lactate Dehydrogenase Troponin T C-Reactive Protein Total Protein Albumin Prealbumin Triglycerides Cholesterol LDL Cholesterol Direct HDL Cholesterol 25-OH Vitamin D Total PTH Intact Urine pH Urine WBC (Auto) Urine Creatinine Urine Total Protein Fluid Total Protein Vancomycin Trough Rheumatoid Factor Complement C4 Miscellaneous Test Crossmatch 02/27/17 02/28/17 02/28/17 23:55 05:23 06:10 WBC RBC Hgb Hct MCV MCH MCHC RDW Plt Count Lymph % (Auto) [place] % (Auto) Lymph # [place] # Baso # Seg Neutrophils % Seg Neuts % (Manual) Lymphocytes % (Manual) Monocytes % (Manual) Eosinophils % (Manual) Basophils % (Manual) Nucleated RBC % Seg Neutrophils # Seg Neutrophils # Man Lymphocytes # (Manual) Monocytes # (Manual) Eosinophils # (Manual) Basophils # (Manual) PT INR Fibrinogen dRVVT Confirm Interp Factor V Activity POC ABG pH POC ABG pCO2 POC ABG pO2 ABG pO2 ABG HCO3 ABG Base Excess ABG Hemoglobin Oxyhemoglobin Sodium 134 L Potassium 3.0 L Chloride 94.9 L Carbon Dioxide BUN 53 H Creatinine 1.9 H Glucose 138 H POC Glucose 134 H 164 H Lactic Acid Calcium Ionized Calcium Phosphorus 2.00 L D Magnesium Direct Bilirubin AST ALT Alkaline Phosphatase Lactate Dehydrogenase Troponin T C-Reactive Protein Total Protein Albumin Prealbumin Triglycerides Cholesterol LDL Cholesterol Direct HDL Cholesterol 25-OH Vitamin D Total PTH Intact Urine pH Urine WBC (Auto) Urine Creatinine Urine Total Protein Fluid Total Protein Vancomycin Trough Rheumatoid Factor Complement C4 Miscellaneous Test Crossmatch 02/28/17 02/28/17 02/28/17 12:18 17:54 23:47 WBC RBC Hgb Hct MCV MCH MCHC RDW Plt Count Lymph % (Auto) [place] % (Auto) Lymph # [place] # Baso # Seg Neutrophils % Seg Neuts % (Manual) Lymphocytes % (Manual) Monocytes % (Manual) Eosinophils % (Manual) Basophils % (Manual) Nucleated RBC % Seg Neutrophils # Seg Neutrophils # Man Lymphocytes # (Manual) Monocytes # (Manual) Eosinophils # (Manual) Basophils # (Manual) PT INR Fibrinogen dRVVT Confirm Interp Factor V Activity POC ABG pH POC ABG pCO2 POC ABG pO2 ABG pO2 ABG HCO3 ABG Base Excess ABG Hemoglobin Oxyhemoglobin Sodium Potassium Chloride Carbon Dioxide BUN Creatinine Glucose POC Glucose 135 H 140 H 144 H Lactic Acid Calcium Ionized Calcium Phosphorus Magnesium Direct Bilirubin AST ALT Alkaline Phosphatase Lactate Dehydrogenase Troponin T C-Reactive Protein Total Protein Albumin Prealbumin Triglycerides Cholesterol LDL Cholesterol Direct HDL Cholesterol 25-OH Vitamin D Total PTH Intact Urine pH Urine WBC (Auto) Urine Creatinine Urine Total Protein Fluid Total Protein Vancomycin Trough Rheumatoid Factor Complement C4 Miscellaneous Test Crossmatch 03/01/17 03/01/17 03/01/17 04:00 12:02 17:13 WBC RBC Hgb Hct MCV MCH MCHC RDW Plt Count Lymph % (Auto) [place] % (Auto) Lymph # [place] # Baso # Seg Neutrophils % Seg Neuts % (Manual) Lymphocytes % (Manual) Monocytes % (Manual) Eosinophils % (Manual) Basophils % (Manual) Nucleated RBC % Seg Neutrophils # Seg Neutrophils # Man Lymphocytes # (Manual) Monocytes # (Manual) Eosinophils # (Manual) Basophils # (Manual) PT INR Fibrinogen dRVVT Confirm Interp Factor V Activity POC ABG pH POC ABG pCO2 POC ABG pO2 ABG pO2 ABG HCO3 ABG Base Excess ABG Hemoglobin Oxyhemoglobin Sodium Potassium 3.0 L Chloride 97.0 L Carbon Dioxide BUN 81 H Creatinine 2.6 H Glucose 121 H POC Glucose 165 H 126 H Lactic Acid Calcium Ionized Calcium Phosphorus Magnesium Direct Bilirubin AST ALT Alkaline Phosphatase Lactate Dehydrogenase Troponin T C-Reactive Protein Total Protein Albumin Prealbumin Triglycerides Cholesterol LDL Cholesterol Direct HDL Cholesterol 25-OH Vitamin D Total PTH Intact Urine pH Urine WBC (Auto) Urine Creatinine Urine Total Protein Fluid Total Protein Vancomycin Trough Rheumatoid Factor Complement C4 Miscellaneous Test Crossmatch 03/02/17 03/02/17 03/02/17 00:10 03:05 05:20 WBC RBC Hgb Hct MCV MCH MCHC RDW Plt Count Lymph % (Auto) [place] % (Auto) Lymph # [place] # Baso # Seg Neutrophils % Seg Neuts % (Manual) Lymphocytes % (Manual) Monocytes % (Manual) Eosinophils % (Manual) Basophils % (Manual) Nucleated RBC % Seg Neutrophils # Seg Neutrophils # Man Lymphocytes # (Manual) Monocytes # (Manual) Eosinophils # (Manual) Basophils # (Manual) PT INR Fibrinogen dRVVT Confirm Interp Factor V Activity POC ABG pH POC ABG pCO2 POC ABG pO2 ABG pO2 ABG HCO3 ABG Base Excess ABG Hemoglobin Oxyhemoglobin Sodium Potassium 3.0 L Chloride Carbon Dioxide BUN 41 H Creatinine 1.6 H Glucose 130 H POC Glucose 129 H 173 H Lactic Acid Calcium Ionized Calcium Phosphorus 1.70 L D Magnesium 1.40 L Direct Bilirubin AST ALT Alkaline Phosphatase Lactate Dehydrogenase Troponin T C-Reactive Protein Total Protein Albumin Prealbumin Triglycerides Cholesterol LDL Cholesterol Direct HDL Cholesterol 25-OH Vitamin D Total PTH Intact Urine pH Urine WBC (Auto) Urine Creatinine Urine Total Protein Fluid Total Protein Vancomycin Trough Rheumatoid Factor Complement C4 Miscellaneous Test Crossmatch 03/02/17 03/02/17 03/02/17 11:49 16:38 23:46 WBC RBC Hgb Hct MCV MCH MCHC RDW Plt Count Lymph % (Auto) [place] % (Auto) Lymph # [place] # Baso # Seg Neutrophils % Seg Neuts % (Manual) Lymphocytes % (Manual) Monocytes % (Manual) Eosinophils % (Manual) Basophils % (Manual) Nucleated RBC % Seg Neutrophils # Seg Neutrophils # Man Lymphocytes # (Manual) Monocytes # (Manual) Eosinophils # (Manual) Basophils # (Manual) PT INR Fibrinogen dRVVT Confirm Interp Factor V Activity POC ABG pH POC ABG pCO2 POC ABG pO2 ABG pO2 ABG HCO3 ABG Base Excess ABG Hemoglobin Oxyhemoglobin Sodium Potassium Chloride Carbon Dioxide BUN Creatinine Glucose POC Glucose 129 H 141 H 119 H Lactic Acid Calcium Ionized Calcium Phosphorus Magnesium Direct Bilirubin AST ALT Alkaline Phosphatase Lactate Dehydrogenase Troponin T C-Reactive Protein Total Protein Albumin Prealbumin Triglycerides Cholesterol LDL Cholesterol Direct HDL Cholesterol 25-OH Vitamin D Total PTH Intact Urine pH Urine WBC (Auto) Urine Creatinine Urine Total Protein Fluid Total Protein Vancomycin Trough Rheumatoid Factor Complement C4 Miscellaneous Test Crossmatch 03/03/17 03/03/17 03/03/17 04:00 11:59 18:08 WBC RBC Hgb Hct MCV MCH MCHC RDW Plt Count Lymph % (Auto) [place] % (Auto) Lymph # [place] # Baso # Seg Neutrophils % Seg Neuts % (Manual) Lymphocytes % (Manual) Monocytes % (Manual) Eosinophils % (Manual) Basophils % (Manual) Nucleated RBC % Seg Neutrophils # Seg Neutrophils # Man Lymphocytes # (Manual) Monocytes # (Manual) Eosinophils # (Manual) Basophils # (Manual) PT INR Fibrinogen dRVVT Confirm Interp Factor V Activity POC ABG pH POC ABG pCO2 POC ABG pO2 ABG pO2 ABG HCO3 ABG Base Excess ABG Hemoglobin Oxyhemoglobin Sodium Potassium Chloride Carbon Dioxide BUN 70 H Creatinine 2.3 H Glucose POC Glucose 125 H 131 H Lactic Acid Calcium Ionized Calcium Phosphorus Magnesium Direct Bilirubin AST ALT Alkaline Phosphatase Lactate Dehydrogenase Troponin T C-Reactive Protein Total Protein Albumin Prealbumin Triglycerides Cholesterol LDL Cholesterol Direct HDL Cholesterol 25-OH Vitamin D Total PTH Intact Urine pH Urine WBC (Auto) Urine Creatinine Urine Total Protein Fluid Total Protein Vancomycin Trough Rheumatoid Factor Complement C4 Miscellaneous Test Crossmatch 03/03/17 03/03/17 03/04/17 20:17 23:43 05:21 WBC RBC Hgb Hct MCV MCH MCHC RDW Plt Count Lymph % (Auto) [place] % (Auto) Lymph # [place] # Baso # Seg Neutrophils % Seg Neuts % (Manual) Lymphocytes % (Manual) Monocytes % (Manual) Eosinophils % (Manual) Basophils % (Manual) Nucleated RBC % Seg Neutrophils # Seg Neutrophils # Man Lymphocytes # (Manual) Monocytes # (Manual) Eosinophils # (Manual) Basophils # (Manual) PT INR Fibrinogen dRVVT Confirm Interp Factor V Activity POC ABG pH 7.518 H POC ABG pCO2 28.8 L POC ABG pO2 61 L ABG pO2 ABG HCO3 ABG Base Excess ABG Hemoglobin Oxyhemoglobin Sodium Potassium Chloride Carbon Dioxide BUN Creatinine Glucose POC Glucose 122 H 130 H Lactic Acid Calcium Ionized Calcium Phosphorus Magnesium Direct Bilirubin AST ALT Alkaline Phosphatase Lactate Dehydrogenase Troponin T C-Reactive Protein Total Protein Albumin Prealbumin Triglycerides Cholesterol LDL Cholesterol Direct HDL Cholesterol 25-OH Vitamin D Total PTH Intact Urine pH Urine WBC (Auto) Urine Creatinine Urine Total Protein Fluid Total Protein Vancomycin Trough Rheumatoid Factor Complement C4 Miscellaneous Test Crossmatch 03/04/17 03/05/17 03/06/17 06:10 06:15 03:52 WBC RBC Hgb Hct MCV MCH MCHC RDW Plt Count Lymph % (Auto) [place] % (Auto) Lymph # [place] # Baso # Seg Neutrophils % Seg Neuts % (Manual) Lymphocytes % (Manual) Monocytes % (Manual) Eosinophils % (Manual) Basophils % (Manual) Nucleated RBC % Seg Neutrophils # Seg Neutrophils # Man Lymphocytes # (Manual) Monocytes # (Manual) Eosinophils # (Manual) Basophils # (Manual) PT INR Fibrinogen dRVVT Confirm Interp Factor V Activity POC ABG pH POC ABG pCO2 POC ABG pO2 ABG pO2 ABG HCO3 ABG Base Excess ABG Hemoglobin Oxyhemoglobin Sodium 135 L 136 L Potassium 5.2 H 5.9 H Chloride 95.8 L 97.7 L 96.0 L Carbon Dioxide 21 L 21 L BUN 40 H 56 H 70 H Creatinine 1.7 H 2.4 H 3.0 H Glucose 118 H POC Glucose Lactic Acid Calcium Ionized Calcium Phosphorus 4.80 H D 6.00 H D Magnesium 2.60 H Direct Bilirubin AST ALT Alkaline Phosphatase 165 H Lactate Dehydrogenase Troponin T C-Reactive Protein Total Protein Albumin 1.5 L Prealbumin Triglycerides Cholesterol LDL Cholesterol Direct HDL Cholesterol 25-OH Vitamin D Total PTH Intact Urine pH Urine WBC (Auto) Urine Creatinine Urine Total Protein Fluid Total Protein Vancomycin Trough Rheumatoid Factor Complement C4 Miscellaneous Test Crossmatch 03/06/17 03/06/17 03/06/17 11:19 18:40 23:39 WBC RBC Hgb Hct MCV MCH MCHC RDW Plt Count Lymph % (Auto) [place] % (Auto) Lymph # [place] # Baso # Seg Neutrophils % Seg Neuts % (Manual) Lymphocytes % (Manual) Monocytes % (Manual) Eosinophils % (Manual) Basophils % (Manual) Nucleated RBC % Seg Neutrophils # Seg Neutrophils # Man Lymphocytes # (Manual) Monocytes # (Manual) Eosinophils # (Manual) Basophils # (Manual) PT INR Fibrinogen dRVVT Confirm Interp Factor V Activity POC ABG pH POC ABG pCO2 POC ABG pO2 ABG pO2 ABG HCO3 ABG Base Excess ABG Hemoglobin Oxyhemoglobin Sodium Potassium Chloride Carbon Dioxide BUN Creatinine Glucose POC Glucose 108 H 110 H 156 H Lactic Acid Calcium Ionized Calcium Phosphorus Magnesium Direct Bilirubin AST ALT Alkaline Phosphatase Lactate Dehydrogenase Troponin T C-Reactive Protein Total Protein Albumin Prealbumin Triglycerides Cholesterol LDL Cholesterol Direct HDL Cholesterol 25-OH Vitamin D Total PTH Intact Urine pH Urine WBC (Auto) Urine Creatinine Urine Total Protein Fluid Total Protein Vancomycin Trough Rheumatoid Factor Complement C4 Miscellaneous Test Crossmatch 03/07/17 03/07/17 03/07/17 06:04 11:56 23:31 WBC RBC Hgb Hct MCV MCH MCHC RDW Plt Count Lymph % (Auto) [place] % (Auto) Lymph # [place] # Baso # Seg Neutrophils % Seg Neuts % (Manual) Lymphocytes % (Manual) Monocytes % (Manual) Eosinophils % (Manual) Basophils % (Manual) Nucleated RBC % Seg Neutrophils # Seg Neutrophils # Man Lymphocytes # (Manual) Monocytes # (Manual) Eosinophils # (Manual) Basophils # (Manual) PT INR Fibrinogen dRVVT Confirm Interp Factor V Activity POC ABG pH POC ABG pCO2 POC ABG pO2 ABG pO2 ABG HCO3 ABG Base Excess ABG Hemoglobin Oxyhemoglobin Sodium Potassium Chloride 97.5 L Carbon Dioxide BUN 28 H Creatinine 1.5 H Glucose POC Glucose 106 H 131 H Lactic Acid Calcium 7.9 L Ionized Calcium Phosphorus Magnesium Direct Bilirubin AST ALT Alkaline Phosphatase Lactate Dehydrogenase Troponin T C-Reactive Protein Total Protein Albumin Prealbumin Triglycerides Cholesterol LDL Cholesterol Direct HDL Cholesterol 25-OH Vitamin D Total PTH Intact Urine pH Urine WBC (Auto) Urine Creatinine Urine Total Protein Fluid Total Protein Vancomycin Trough Rheumatoid Factor Complement C4 Miscellaneous Test Crossmatch 03/08/17 03/08/17 05:15 05:38 WBC RBC Hgb Hct MCV MCH MCHC RDW Plt Count Lymph % (Auto) [place] % (Auto) Lymph # [place] # Baso # Seg Neutrophils % Seg Neuts % (Manual) Lymphocytes % (Manual) Monocytes % (Manual) Eosinophils % (Manual) Basophils % (Manual) Nucleated RBC % Seg Neutrophils # Seg Neutrophils # Man Lymphocytes # (Manual) Monocytes # (Manual) Eosinophils # (Manual) Basophils # (Manual) PT INR Fibrinogen dRVVT Confirm Interp Factor V Activity POC ABG pH POC ABG pCO2 POC ABG pO2 ABG pO2 ABG HCO3 ABG Base Excess ABG Hemoglobin Oxyhemoglobin Sodium 135 L Potassium Chloride 96.6 L Carbon Dioxide 20 L BUN 46 H Creatinine 2.3 H D Glucose 117 H POC Glucose 156 H Lactic Acid Calcium Ionized Calcium Phosphorus Magnesium Direct Bilirubin AST ALT Alkaline Phosphatase Lactate Dehydrogenase Troponin T C-Reactive Protein Total Protein Albumin Prealbumin Triglycerides Cholesterol LDL Cholesterol Direct HDL Cholesterol 25-OH Vitamin D Total PTH Intact Urine pH Urine WBC (Auto) Urine Creatinine Urine Total Protein Fluid Total Protein Vancomycin Trough Rheumatoid Factor Complement C4 Miscellaneous Test Crossmatch Allied health notes reviewed: RT (Has been on PS 15/, no desaturations today)
[2017-03-08] MEDS: DURAGESIC TD SCH (12:00)
--- NOTE | 2017-03-08 12:23 | Event Note ---
Please note this is not a progress note Due to inclement weather condition unable to physically come and see the patient Case was discussed with patient's nurse today at length Chart was reviewed, Events of 24 hours were also noted Interdisciplinary notes were also reviewed Vitals labs intake output medications were reviewed My assessment and plan are as follows for today; end-stage renal disease: Patient will receive her hemodialysis treatment today discussed with dialysis nurse Kyle Monitor dialysis. Labs Ultrafiltration as tolerated during hemodialysis If you have any further questions please feel free to contact me at [phone]
--- NOTE | 2017-03-08 14:08 | Cat Scan Report ---
CT HEAD WITHOUT CONTRAST INDICATION: Headache. COMPARISON: 10/03/2016. FINDINGS: Noncontrast head CT demonstrates moderate interval enlargement of the ventricles and sulci with extensive progression of diffuse bilateral periventricular white matter hypodensities, representing small vessel ischemic disease. Predominantly left posterior temporal-parietal 6.4 cm old infarct/encephalomalacia with laminar necrosis again noted with increased dystrophic/gyral calcifications. Mild ex-vacuo dilatation of the left lateral ventricle posteriorly may also be present. Few small lacunar infarcts as measuring 5 mm in the left basal ganglia, axial image 28 also again seen. No definite acute hemorrhage, mass effect or midline shift. No abnormal extra-axial fluid collections. Approximately 1.3 cm left cerebellar calcification posteriorly is new, axial image 10. Fourth ventricle maintains midline, though is slightly larger. Preserved basilar cisterns. Normal eye globes. New nasogastric tube courses the left nasal passage. Interval resolution of acute right maxillary and sphenoid sinusitis. Slight left anterior ethmoid air cell opacification. Hypoplastic right sphenoid and aplastic left sphenoid sinuses again noted. Clear remainder imaged paranasal sinuses. Bilateral temporal bone/mastoid air cell opacification again seen. Normal calvarium and scalp. Few radiopaque dental fillings. CONCLUSION: 1. Interval CT worsening with significant progression of both central and cortical atrophy and extensive microvascular changes, as detailed above. Hydrocephalus/NPH with transependymal edema may also be correlated for clinically in an appropriate setting. 2. Stable old ischemic changes, including increased dystrophic calcification/laminar necrosis along old left temporoparietal infarct, as described. 3. New peripheral left cerebellar calcification may presumably represent interval infarction/laminar necrosis as well. 4. Other findings, including new nasogastric tube, improved anterior paranasal sinusitis and persistent extensive bilateral mastoiditis, as above. Thank you for the opportunity to participate in this patient's care.
--- NOTE | 2017-03-08 15:42 | Cat Scan Report ---
CT ABDOMEN AND PELVIS WITHOUT CONTRAST INDICATION: Septic shock, of unclear source. Evaluate for perforation or abscess. COMPARISON: 02/12/2017 CT. FINDINGS: Noncontrast abdomen and pelvis CT performed. LUNG BASES: Right more than left pleural effusions and atelectasis/consolidation involving the lower lobes. Air filled distal esophageal prominence/dilatation with esophagogastric tube again extending into the stomach. ABDOMEN: Please note that sensitivity to detect small visceral lesions is limited due to the absence of intravenous or oral contrast. However, pneumoperitoneum again noted, greatest within anterior abdominal hypodense fluid collection that measures approximately 21 cm transverse and 4.2 cm AP as on axial image 145, series 2 while approximately 14 cm craniocaudal. Intrinsic hyperdensity/contrast now not noted without adequate bowel opacification. Grossly unremarkable unenhanced liver, spleen, pancreas and left adrenal. Approximately 2 cm right adrenal myelolipoma may again be present as on axial image 68. No hydronephrosis with small bilateral nonspecific renal calcifications. Gallbladder again surgically absent. New left groin catheter tip along the lower IVC. Multiple retroperitoneal lymph nodes again seen with the largest left para-aortic node approximately 2.1 x 1.3 cm on axial image 105, series 2. Nonopacified GI tract evaluation limited, though grossly nonobstructive. PELVIS: Anterior abdominal wall fluid collection extends into the pelvis anteriorly with some dependent density as on axial images 220-250, series 2, amongst others. Hern[place] catheter again decompresses the urinary bladder. Hyperdense rectal stool/debris. Few pelvic phleboliths. Grossly unremarkable uterus. Mild pelvic/presacral fat stranding with deep sacral decubitus ulcer with possibly exposed bone again seen. Right lower abdominal subcutaneous fluid collection is now larger at 7.3 x 3.2 cm as on axial image 183 with few adjacent foci of air and stranding tracking towards the skin. No acute osseous process. CONCLUSION: 1. Large anterior abdominal and pelvic fluid collection/abscess/complex ascites again noted in this patient with suspicious bowel/distal ileum perforation with pneumoperitoneum, as detailed above. 2. Right lower abdominal anterior subcutaneous fluid collection is also larger, possibly abscess and/or fistula. 3. Bibasilar pleural effusions and consolidation. 4. Various other findings, including dilated distal esophagus, cholecystectomy, retroperitoneal adenopathy, deep sacral decubitus ulcer and a new left groin catheter, amongst others, as above. Please correlate. Thank you for the opportunity to participate in this patient's care.
[2017-03-08] MEDS: HEPARIN IV PRN (18:52)
[2017-03-08] MEDS ORDERED: TPN ADULT IV SCH (20:00)
[2017-03-08] MEDS ORDERED: INTRALIPID 20% 250 ML IV SCH (20:00)
[2017-03-08] MEDS: VANCOMYCIN VIAL 1,000 MG in NACL 0.9% 100 ML IV SCH (20:45)
[2017-03-09] MEDS: HumuLIN R SUB-Q SCH ×4 (02:10→17:57)
[2017-03-09] MEDS: LOPRESSOR IV SCH ×5 (02:12→21:03)
[2017-03-09] MEDS: REGLAN IV SCH ×4 (05:30→21:30)
[2017-03-09 07:06] LABS: Calcium 8.2 mg/dL (8.4-10.2)
[2017-03-09] MEDS: PEPCID IV SCH ×2 (07:19→09:30)
[2017-03-09] MEDS: DUONEB *Not for PRN Use IH SCH ×3 (07:55→20:10)
[2017-03-09] MEDS ORDERED: MAGNESIUM SULFATE 2GM/50ML 2 GM/50 ML BAG IV ONE (08:00)
--- NOTE | 2017-03-09 08:02 | Progress Note ---
Subjective Principal diagnosis: Acute resp failure on MVS; S/P Acute CVA; Acute Encephalopathy; JUANITA Interval history: Patient was seen today for follow-up in ICU setting Events of 24 hours vitals labs intake output medications were reviewed patient currently has a left femoral catheter for dialysis Permacath was removed due to fear of infection Interdisciplinary notes were also reviewed Social history: Reviewed Family history: Reviewed Current medication: Reviewed Allergies: Reviewed Physical examination Vitals: Reviewed HEENT: Oral mucosa moist, minimal pallor nor icterus Neck: Supple no thyromegaly JVD Chest: Clear to auscultation anteriorly few crackles in the side and at the lung bases Heart: Regular rate rhythm S1-S2 heard no S3-S4 Abdomen: Soft nontender Extremity: Approximately 1+ edema on dry skin Endocrine: Thyroid not enlarged Musculoskeletal: No joint effusion noted Assessment and plan: End-stage renal disease: Patient is currently in maintenance of her dialysis she will continue to dialyze Monday and Monday through her left groin catheter Permacath: Has been removed, per infectious disease request patient currently has left femoral Vas-Cath follow-up on the blood culture Respiratory failure: Status post currently remains unchanged Anemia and end-stage renal disease: Currently on erythropoietin Secondary hyperparathyroidism: To monitor phosphorus and PTH level Persistent vegetative state: Essentially unchanged Suspicion for recurrent SIRS, likely due to enterococcal bacteremia? Abdominal source infectious disease currently following Transthoracic echocardiogram was essentially negative for any vegetation Patient has multiple comorbidities including stage IV sacral decubitus ulcer, PICC line infection, intra-abdominal wall abscess, left CVA dense Overall prognosis is not so good We'll continue to follow recommendation from renal standpoint Objective - Vital Signs Vital signs: Vital Signs - 12hr 03/08/17 03/08/17 03/08/17 20:16 20:30 20:35 Temperature Pulse Rate 101 H 98 H 98 H Pulse Rate [ Apical] Pulse Rate [ Throughout] Respiratory 20 23 Rate Respiratory Rate [ Throughout] Blood Pressure 108/63 114/57 114/52 O2 Sat by Pulse 97 99 Oximetry O2 Sat by Pulse Oximetry [ Assessment] 03/08/17 03/08/17 03/08/17 20:45 21:00 21:15 Temperature Pulse Rate 100 H 100 H 99 H Pulse Rate [ Apical] Pulse Rate [ Throughout] Respiratory 25 H 23 20 Rate Respiratory Rate [ Throughout] Blood Pressure 121/65 116/66 108/63 O2 Sat by Pulse 99 98 97 Oximetry O2 Sat by Pulse Oximetry [ Assessment] 03/08/17 03/08/17 03/08/17 21:30 21:44 21:45 Temperature Pulse Rate 102 H 98 H 97 H Pulse Rate [ Apical] Pulse Rate [ Throughout] Respiratory 22 21 Rate Respiratory Rate [ Throughout] Blood Pressure 104/59 114/52 115/61 O2 Sat by Pulse 97 97 99 Oximetry O2 Sat by Pulse Oximetry [ Assessment] 03/08/17 03/08/17 03/08/17 22:00 22:15 22:30 Temperature Pulse Rate 97 H 99 H 99 H Pulse Rate [ Apical] Pulse Rate [ Throughout] Respiratory 25 H 21 19 Rate Respiratory Rate [ Throughout] Blood Pressure 113/66 113/65 113/67 O2 Sat by Pulse 99 100 100 Oximetry O2 Sat by Pulse Oximetry [ Assessment] 03/08/17 03/08/17 03/08/17 22:45 23:00 23:15 Temperature Pulse Rate 101 H 103 H 99 H Pulse Rate [ Apical] Pulse Rate [ Throughout] Respiratory 21 22 20 Rate Respiratory Rate [ Throughout] Blood Pressure 109/57 113/72 113/65 O2 Sat by Pulse 100 100 100 Oximetry O2 Sat by Pulse Oximetry [ Assessment] 03/08/17 03/08/17 03/09/17 23:30 23:45 00:00 Temperature 98.4 F Pulse Rate 100 H 97 H 108 H Pulse Rate [ 97 H Apical] Pulse Rate [ Throughout] Respiratory 17 24 28 H Rate Respiratory Rate [ Throughout] Blood Pressure 123/63 111/67 127/80 O2 Sat by Pulse 99 100 100 Oximetry O2 Sat by Pulse 99 Oximetry [ Assessment] 03/09/17 03/09/17 03/09/17 00:15 00:30 00:31 Temperature Pulse Rate 100 H 101 H 100 H Pulse Rate [ Apical] Pulse Rate [ Throughout] Respiratory 24 22 Rate Respiratory Rate [ Throughout] Blood Pressure 102/67 100/65 127/80 O2 Sat by Pulse 99 100 Oximetry O2 Sat by Pulse Oximetry [ Assessment] 03/09/17 03/09/17 03/09/17 00:46 01:00 01:16 Temperature Pulse Rate 102 H 97 H 97 H Pulse Rate [ Apical] Pulse Rate [ Throughout] Respiratory 22 21 15 Rate Respiratory Rate [ Throughout] Blood Pressure 114/24 121/69 114/54 O2 Sat by Pulse 99 97 99 Oximetry O2 Sat by Pulse Oximetry [ Assessment] 03/09/17 03/09/17 03/09/17 01:30 01:45 02:00 Temperature Pulse Rate 102 H 98 H 125 H Pulse Rate [ Apical] Pulse Rate [ Throughout] Respiratory 28 H 15 20 Rate Respiratory Rate [ Throughout] Blood Pressure 107/63 115/55 115/55 O2 Sat by Pulse 99 99 99 Oximetry O2 Sat by Pulse Oximetry [ Assessment] 03/09/17 03/09/17 03/09/17 02:16 02:30 02:45 Temperature Pulse Rate 104 H 105 H 94 H Pulse Rate [ Apical] Pulse Rate [ Throughout] Respiratory 19 17 25 H Rate Respiratory Rate [ Throughout] Blood Pressure 107/52 113/59 114/63 O2 Sat by Pulse 94 97 95 Oximetry O2 Sat by Pulse Oximetry [ Assessment] 03/09/17 03/09/17 03/09/17 03:00 03:15 03:30 Temperature Pulse Rate 105 H 103 H 102 H Pulse Rate [ Apical] Pulse Rate [ Throughout] Respiratory 21 20 18 Rate Respiratory Rate [ Throughout] Blood Pressure 109/66 104/59 104/59 O2 Sat by Pulse 100 89 98 Oximetry O2 Sat by Pulse Oximetry [ Assessment] 03/09/17 03/09/17 03/09/17 03:45 04:00 04:15 Temperature 99.9 F H Pulse Rate 108 H 98 H 96 H Pulse Rate [ 97 H Apical] Pulse Rate [ Throughout] Respiratory 26 H 20 21 Rate Respiratory Rate [ Throughout] Blood Pressure 101/52 111/55 105/57 O2 Sat by Pulse 80 L 98 93 Oximetry O2 Sat by Pulse Oximetry [ Assessment] 03/09/17 03/09/17 03/09/17 04:30 04:40 04:45 Temperature Pulse Rate 107 H 101 H 100 H Pulse Rate [ Apical] Pulse Rate [ Throughout] Respiratory 22 25 H Rate Respiratory Rate [ Throughout] Blood Pressure 105/57 117/59 117/59 O2 Sat by Pulse 96 98 94 Oximetry O2 Sat by Pulse Oximetry [ Assessment] 03/09/17 03/09/17 03/09/17 05:00 05:15 05:30 Temperature Pulse Rate 97 H 97 H 94 H Pulse Rate [ Apical] Pulse Rate [ Throughout] Respiratory 21 23 20 Rate Respiratory Rate [ Throughout] Blood Pressure 118/62 124/69 124/69 O2 Sat by Pulse 97 97 100 Oximetry O2 Sat by Pulse Oximetry [ Assessment] 03/09/17 03/09/17 03/09/17 05:45 06:00 07:52 Temperature Pulse Rate 93 H 96 H 98 H Pulse Rate [ Apical] Pulse Rate [ Throughout] Respiratory 19 20 Rate Respiratory Rate [ Throughout] Blood Pressure 126/64 118/61 122/60 O2 Sat by Pulse 99 100 97 Oximetry O2 Sat by Pulse Oximetry [ Assessment] 03/09/17 07:55 Temperature Pulse Rate Pulse Rate [ Apical] Pulse Rate [ 111 H Throughout] Respiratory Rate Respiratory 22 Rate [ Throughout] Blood Pressure O2 Sat by Pulse Oximetry O2 Sat by Pulse Oximetry [ Assessment] - Lab 02/24/17 10:05 03/09/17 05:20 Most recent lab results ABG pH 7.450 pH Units (7.350-7.450) 12/05/16 Unknown ABG pCO2 29.6 mm Hg 12/05/16 Unknown ABG pO2 75.2 mm Hg (80.0-90.0) L 12/05/16 Unknown ABG HCO3 20.1 mmol/L (20.0-26.0) 12/05/16 Unknown ABG O2 Saturation 96.8 % (95.0-99.0) 12/05/16 Unknown Calcium 8.2 mg/dL (8.4-10.2) L 03/09/17 05:20 Phosphorus 1.80 mg/dL (2.5-4.5) L D 03/09/17 05:20 Magnesium 1.40 mg/dL (1.7-2.3) L 03/09/17 05:20 Urine Creatinine 19.7 mg/dL (0.1-20.0) 11/12/16 10:18 Urine Sodium 36 mEq/L 09/16/16 19:19 Urine Total Protein 16 mg/dL (5-11.8) H 09/16/16 19:19
[2017-03-09] MEDS ORDERED: KPHOS 20 MMOL in NACL 0.9% 250ML 250 ML IV ONE (08:30)
--- NOTE | 2017-03-09 09:23 | Progress Note ---
Assessment and Plan Assessment: 1) Recurrent SIRS: new septic shock ? - Likely due to recurrent Enterococcus bacteremia ? intrabdominal source 2) History of Peritonitis: from gastric perforation from dislodged PEG with significant ascites -S/P exlap, repair of gastric perforation with wedge gastrectomy, abdominal washout, drain placement on 10/05 3) History of Candidemia: -Blood cultures positive for Silvia albicans on 09/23 and 09/25 -Blood cultures negative on 09/30 -PICC line changed on 10/03 -Source ? gastric perf (PEG placed on 09/20) +/- TPN +/- central lines -TTE 10/07 no vegetations -PICC exchanged on 10/03 -fully treated with micafungin for 14 days last day 10/13 4) History CA-UTI s/p gutierrez exchanged 5) Diarrhea - ? etiology ? antibiotic-induced, not better. 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 from GI bleed 13) Recent abdominal wall abscess at surgical site-treated 14 ) Recent Enterococcal bacteremia from PICC line infection. 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 -S/P debridement at bedside - new wound cx 01/24 +Proteus and MDR Pseudomonas (resistant to meropenem and cefepime/sensitive to ceftazidime) and wound VAC placement -CRP=24 --> 8 16) Presumed VAP: sputum + MDR Pseudomonas / Proteus / pleural effusion s/p thoracentesis 17) Resp failure - better 18) Perforated bowel: Ct showed presumed perf bowel with free air -repeat CT showed large 21x4.2 cm collection 19) Enterococcal septicemia from IV cath. TTE no vegetations Plan: -surg eval -if not candidate for surgery call radiology for CT guided drainage -add add cefepime and flagyl -f/u repeat blood cultures -which has been neg -continue vancomycin for now total 14 days from perm cath removal until 03/16 poor [address] you Dr Pierre for your consultation, will follow up with you. Pauline Carias MD Infectious Diseases Specialist [facility] ([facility]) M [phone] O [phone] Subjective Date of service: 03/09/17 Principal diagnosis: Acute resp failure on MVS; S/P Acute CVA; Acute Encephalopathy; JUANITA Interval history: Interval history: remains on the vent, tachy on monitor, on amiodarone gtt, had fever on 03/05, temp 101.3 on levophed at 3 mcg/min Microbiology: Blood cultures: 09/13 neg 09/23 Silvia albicans 09/25 Silvia 09/29 neg 10/07 neg 11/05 neg 11/07 ngtd 11/22 E faecalis 1 of 4 bottles 11/25 neg 12/27 neg 01/09 ngtd 02/14 ngtd 02/27 Enterococcus durans 1 of 4 bottles 03/06 ngtd Urine cultures: 09/10 neg 09/13 neg 8/ 10-100K mixed species 10/07 neg 11/05 VRE 11/07 mixed bacteria Respiratory cultures: 09/07 neg 09/13 neg 09/23 neg 11/07 MDR Pseudomonas 11/21 tracheal + VRE 01/09 Pseudomonas x 3 and Proteues Pleural effusion: ngtd Wound cultures: 10/17 abd wall wound purulence + Pseudomonas MDR 01/24 GNRs Stool cultures: cath tip 11/07 + [employer] Current Antimicrobials: none Previous Antimicrobials: Zosyn 10/07 Vancomycin PO 10/01 Metronidazole 09/25 Micafungin 09/27-10/13 Meropenem 10/10 Vanco 10/17 zosyn 10/21 Cefepime 11/10 vancomyin 11/07 fluconazole 10/19 cefepime 10/29levaquin 11/05 vanco 11/23 meropenem 01/08 ceftaz 01/30 Objective - Exam Narrative Exam: General appearance: alert non communicative, on the vent via trach in mild resp distress, no following commands Eyes: anicteric sclera, moist conjunctivae; PERRLA HENT: Atraumatic; oropharynx limited; Normal external ears. +NGT with greenish secretion Neck: +trach in place; supple, no thyromegaly or lymphadenopathy Lungs: brit coarse BS CV: tachy Abdomen: Soft, tender, +old PEG site no drainage. +iliostomy. 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 Necrotic tissue noted on the wound edges and in the wound bed Now with a wound VAC Psych: somnolent . Neuro: alert non verbal on the vent. Lines: PICC / gutierrez - Constitutional Vitals: Vital Signs Temp Pulse Resp BP Pulse Ox 99.9 F H 100 H 21 102/50 83 L 03/09/17 08:00 03/09/17 08:31 03/09/17 08:31 03/09/17 08:31 03/09/17 08:31 Temperature -Last 24 Hours Temperature 99.9 F Temperature 99.9 F Temperature 98.4 F Temperature 97.8 F Temperature 100.3 F Temperature 98.6 F Temperature 98.6 F Temperature 98.6 F - Labs CBC & Chem 7: 02/24/17 10:05 03/09/17 05:20 Labs: Abnormal lab results 03/08/17 03/08/17 03/09/17 Range/Units 11:50 23:34 04:42 Potassium (3.6-5.0) mmol/L BUN (7-17) mg/dL Creatinine (0.7-1.2) mg/dL Glucose (65-100) mg/dL POC Glucose 131 H 125 H 128 H (70-105) Calcium (8.4-10.2) mg/dL Phosphorus (2.5-4.5) mg/dL Magnesium (1.7-2.3) mg/dL 03/09/17 Range/Units 05:20 Potassium 3.2 L (3.6-5.0) mmol/L BUN 30 H (7-17) mg/dL Creatinine 1.7 H (0.7-1.2) mg/dL Glucose 112 H (65-100) mg/dL POC Glucose (70-105) Calcium 8.2 L (8.4-10.2) mg/dL Phosphorus 1.80 L D (2.5-4.5) mg/dL Magnesium 1.40 L (1.7-2.3) mg/dL
[2017-03-09] MEDS: HEPARIN SUB-Q SCH ×2 (09:30→21:30)
[2017-03-09] MEDS: CORDARONE 900 MG in D5W 482 ML IV SCH (09:32)
[2017-03-09] MEDS: FLAGYL 500 MG/100 ML 500 MG/100 ML BAG IV SCH ×3 (11:36→21:29)
[2017-03-09] MEDS: LEVOPHED DRIP 4 MG/NS 250 ML 4 MG/250 ML BAG IV SCH (11:36)
[2017-03-09] MEDS: MAXIPIME 1 GM in NACL 0.9% 20 ML IV SCH (12:06)
--- NOTE | 2017-03-09 14:55 | Progress Note ---
Assessment and Plan Acute Hypoxemic Respiratory Failure (now with exacerbation and back on MVS) Hypertension (unable to receive p.o. meds) Atrial Fibrillation with RVR s/p tracheostomy Acute encephalopathy s/p CVA Oropharyngeal dysphagia Enterococcal bacteremia sepsis syndrome Sacral Decubitus Ulcer (s/p surgical debridement) Anemia Obesity JUANITA now on hemodialysis Enteric Fistula - keep on with daily t-piece/PSV trials as tolerated - continue scheduled IV metoprolol with hold parameters - follow 2D ECHO re: ? SBE - stop Amiodarone drip once rate better controlled - continue to hold tube feeds due to continued intolerance; continue reglan at 10mg IV q8h - continue NGT to LIS - continue TPN - remains on amiodarone drip for persistent tachycardia - prn CXR's at this point - appreciate surgery input - continue fentanyl patch for pain issues especially s/p debridement - continue wound care per WCT and RN's (she is s/p surgical debridement) - continue anti-infectives per ID recs (Vancomycin now) - prn CRP & lactate levels if clinically indicated (Follow WBC also) - continue TPN administration (Change to PPN re: vascular access issues) - continue robinul & scopolamine for secretion control - continue to wean FiO2 for sats > 94% - continue bronchodilators and pulmonary toilet - VAP bundle addressed - continue to follow electrolytes and correct as necessary - continue GI & VTE prophylaxis - Continue flu & pneumovax per protocol - ethics consult placed and pending .....she remains critically ill on life sustaining interventions including MVS and at risk for further deterioration including ....30' CCT ....care plan discussed at length during team rounds ...senior living prognosis remains guarded and this has intermittently been conveyed to family Subjective Date of service: 03/09/17 Principal diagnosis: Acute resp failure on MVS; S/P Acute CVA; Acute Encephalopathy; JUANITA Interval history: Patient is seen today for: Acute resp failure on MVS; S/P Acute CVA; Acute Encephalopathy; JUANITA Seen and examined at bedside; 24hour events reviewed; nursing and respiratory care staff consulted; no adverse overnight events reported to me; remains on MVS ; repeat CT brain with progressive disease and new cerebellar infarcts; AMS is persistent; stable otherwise Objective Vital Signs - 12hr 03/09/17 03/09/17 03/09/17 03:00 03:15 03:30 Temperature Pulse Rate 105 H 103 H 102 H Pulse Rate [ Apical] Pulse Rate [ Throughout] Respiratory 21 20 18 Rate Respiratory Rate [ Throughout] Blood Pressure 109/66 104/59 104/59 O2 Sat by Pulse 100 89 98 Oximetry O2 Sat by Pulse Oximetry [ Assessment] 03/09/17 03/09/17 03/09/17 03:45 04:00 04:15 Temperature 99.9 F H Pulse Rate 108 H 98 H 96 H Pulse Rate [ 97 H Apical] Pulse Rate [ Throughout] Respiratory 26 H 20 21 Rate Respiratory Rate [ Throughout] Blood Pressure 101/52 111/55 105/57 O2 Sat by Pulse 80 L 98 93 Oximetry O2 Sat by Pulse Oximetry [ Assessment] 03/09/17 03/09/17 03/09/17 04:30 04:40 04:45 Temperature Pulse Rate 107 H 101 H 100 H Pulse Rate [ Apical] Pulse Rate [ Throughout] Respiratory 22 25 H Rate Respiratory Rate [ Throughout] Blood Pressure 105/57 117/59 117/59 O2 Sat by Pulse 96 98 94 Oximetry O2 Sat by Pulse Oximetry [ Assessment] 03/09/17 03/09/17 03/09/17 05:00 05:15 05:30 Temperature Pulse Rate 97 H 97 H 94 H Pulse Rate [ Apical] Pulse Rate [ Throughout] Respiratory 21 23 20 Rate Respiratory Rate [ Throughout] Blood Pressure 118/62 124/69 124/69 O2 Sat by Pulse 97 97 100 Oximetry O2 Sat by Pulse Oximetry [ Assessment] 03/09/17 03/09/17 03/09/17 05:45 06:00 06:15 Temperature Pulse Rate 93 H 96 H 92 H Pulse Rate [ Apical] Pulse Rate [ Throughout] Respiratory 19 20 16 Rate Respiratory Rate [ Throughout] Blood Pressure 126/64 118/61 118/61 O2 Sat by Pulse 99 100 96 Oximetry O2 Sat by Pulse Oximetry [ Assessment] 03/09/17 03/09/17 03/09/17 06:30 06:45 07:00 Temperature Pulse Rate 92 H 94 H 100 H Pulse Rate [ Apical] Pulse Rate [ Throughout] Respiratory 16 21 23 Rate Respiratory Rate [ Throughout] Blood Pressure 118/63 128/69 128/76 O2 Sat by Pulse 98 98 100 Oximetry O2 Sat by Pulse Oximetry [ Assessment] 03/09/17 03/09/17 03/09/17 07:15 07:30 07:45 Temperature Pulse Rate 100 H 93 H 96 H Pulse Rate [ Apical] Pulse Rate [ Throughout] Respiratory 19 17 19 Rate Respiratory Rate [ Throughout] Blood Pressure 128/76 119/64 119/64 O2 Sat by Pulse 98 100 97 Oximetry O2 Sat by Pulse Oximetry [ Assessment] 03/09/17 03/09/17 03/09/17 07:52 07:55 08:00 Temperature 99.9 F H Pulse Rate 98 H 103 H Pulse Rate [ Apical] Pulse Rate [ 111 H Throughout] Respiratory 22 Rate Respiratory 22 Rate [ Throughout] Blood Pressure 122/60 130/61 O2 Sat by Pulse 97 97 Oximetry O2 Sat by Pulse Oximetry [ Assessment] 03/09/17 03/09/17 03/09/17 08:03 08:15 08:31 Temperature Pulse Rate 112 H 100 H Pulse Rate [ Apical] Pulse Rate [ 103 H Throughout] Respiratory 27 H 21 Rate Respiratory 30 H Rate [ Throughout] Blood Pressure 130/61 102/50 O2 Sat by Pulse 91 83 L Oximetry O2 Sat by Pulse Oximetry [ Assessment] 03/09/17 03/09/17 03/09/17 08:45 09:00 09:15 Temperature Pulse Rate 98 H 101 H 101 H Pulse Rate [ Apical] Pulse Rate [ Throughout] Respiratory 33 H 25 H 24 Rate Respiratory Rate [ Throughout] Blood Pressure 107/58 118/61 118/61 O2 Sat by Pulse 86 93 88 Oximetry O2 Sat by Pulse Oximetry [ Assessment] 03/09/17 03/09/17 03/09/17 09:30 09:45 10:01 Temperature Pulse Rate 114 H 107 H 117 H Pulse Rate [ Apical] Pulse Rate [ Throughout] Respiratory 26 H 18 30 H Rate Respiratory Rate [ Throughout] Blood Pressure 109/73 109/73 107/62 O2 Sat by Pulse 91 99 93 Oximetry O2 Sat by Pulse Oximetry [ Assessment] 03/09/17 03/09/17 03/09/17 10:15 10:30 10:45 Temperature Pulse Rate 113 H 112 H 115 H Pulse Rate [ Apical] Pulse Rate [ Throughout] Respiratory 19 25 H 24 Rate Respiratory Rate [ Throughout] Blood Pressure 113/61 106/60 118/66 O2 Sat by Pulse 97 96 95 Oximetry O2 Sat by Pulse Oximetry [ Assessment] 01/18/18 01/18/18 01/18/18 11:01 11:15 11:31 Temperature Pulse Rate 115 H 113 H 109 H Pulse Rate [ Apical] Pulse Rate [ Throughout] Respiratory 23 22 19 Rate Respiratory Rate [ Throughout] Blood Pressure 118/66 112/57 101/55 O2 Sat by Pulse 97 100 99 Oximetry O2 Sat by Pulse Oximetry [ Assessment] 03/09/17 03/09/17 03/09/17 11:45 11:46 12:00 Temperature 99.9 F H Pulse Rate 105 H 103 H Pulse Rate [ Apical] Pulse Rate [ Throughout] Respiratory 16 21 Rate Respiratory Rate [ Throughout] Blood Pressure 109/61 110/60 O2 Sat by Pulse 98 99 Oximetry O2 Sat by Pulse Oximetry [ Assessment] 03/09/17 03/09/17 03/09/17 12:15 12:30 12:41 Temperature Pulse Rate 104 H 104 H 96 H Pulse Rate [ Apical] Pulse Rate [ Throughout] Respiratory 19 20 Rate Respiratory Rate [ Throughout] Blood Pressure 117/67 96/50 96/50 O2 Sat by Pulse 100 99 100 Oximetry O2 Sat by Pulse Oximetry [ Assessment] 03/09/17 03/09/17 03/09/17 12:43 12:45 13:00 Temperature Pulse Rate 105 H 93 H Pulse Rate [ Apical] Pulse Rate [ Throughout] Respiratory 20 14 Rate Respiratory Rate [ Throughout] Blood Pressure 102/50 98/43 O2 Sat by Pulse 98 100 Oximetry O2 Sat by Pulse 100 Oximetry [ Assessment] 03/09/17 03/09/17 03/09/17 13:15 13:30 13:45 Temperature Pulse Rate 95 H 95 H 100 H Pulse Rate [ Apical] Pulse Rate [ Throughout] Respiratory 15 14 18 Rate Respiratory Rate [ Throughout] Blood Pressure 98/43 100/46 104/54 O2 Sat by Pulse 95 99 Oximetry O2 Sat by Pulse Oximetry [ Assessment] 03/09/17 03/09/17 03/09/17 14:01 14:18 14:25 Temperature Pulse Rate 97 H Pulse Rate [ Apical] Pulse Rate [ 95 H 102 H Throughout] Respiratory 16 Rate Respiratory 21 16 Rate [ Throughout] Blood Pressure 104/54 O2 Sat by Pulse Oximetry O2 Sat by Pulse Oximetry [ Assessment] Constitutional: appears uncomfortable, other (not tracking) Eyes: non-icteric, other (tracheostomy tube in midline of neck) ENT: oropharynx moist, oropharyngeal exudate pre, other (midline tracheostomy tube) Neck: supple, no lymphadenopathy, no JVD, other (no thyromegaly) Effort: mildly labored Ascultation: Bilateral: rhonchi (and referred upper airway sounds) Percussion: Bilateral: not dull Cardiovascular: regular rate and rhythm, other (no rubs / murmurs) Gastrointestinal: hypoactive bowel sounds, soft, non-tender, non-distended, other (RLQ & LUQ stomas with colostomy bags) Integumentary: decubitus ulcer (sacral; stage 4 s/p surgical debridement), other (no rash; no cellulitis; poor turgor) Extremities: no cyanosis, pulses normal, no ischemia or petechiae, edema (1+ bilaterally) Neurologic: pupils equal and round, unable to assess, other (encephalopathic) Psychiatric: other (unable to assess) CBC and BMP: 02/24/17 10:05 03/13/17 05:39 ABG, PT/INR, D-dimer: ABG POC ABG pH 7.518 (7.35-7.45) H 03/03/17 20:17 ABG pH 7.450 pH Units (7.350-7.450) 12/05/16 Unknown POC ABG pCO2 28.8 (35-45) L 03/03/17 20: ABG pCO2 29.6 mm Hg 12/05/16 Unknown POC ABG pO2 61 (80-105) L 03/03/17 20:17 ABG pO2 75.2 mm Hg (80.0-90.0) L 12/05/16 Unknown POC ABG HCO3 23.4 03/03/17 20: POC ABG Total CO2 24 03/03/17 20:17 POC ABG O2 Sat 94 03/03/17 20:17 ABG O2 Saturation 96.8 % (95.0-99.0) 12/05/16 Unknown PT/INR, D-dimer PT 15.4 Sec. (12.2-14.9) H 01/13/17 15:50 INR 1.16 (0.87-1.13) H 01/13/17 15:50 Abnormal lab findings: Abnormal Labs 09/03/16 09/03/16 09/03/16 00:03 00:10 00:10 WBC 13.9 H RBC 5.95 H Hgb Hct 44.0 H MCV 74 L MCH 22 L MCHC RDW 17.5 H Plt Count Lymph % (Auto) [place] % (Auto) Lymph # [place] # Baso # Seg Neutrophils % Seg Neuts % (Manual) Lymphocytes % (Manual) 54.0 H Monocytes % (Manual) Eosinophils % (Manual) Basophils % (Manual) Nucleated RBC % Seg Neutrophils # Seg Neutrophils # Man Lymphocytes # (Manual) 7.5 H Monocytes # (Manual) Eosinophils # (Manual) Basophils # (Manual) PT INR Fibrinogen dRVVT Confirm Interp Factor V Activity POC ABG pH POC ABG pCO2 POC ABG pO2 ABG pO2 ABG HCO3 ABG Base Excess ABG Hemoglobin Oxyhemoglobin Sodium Potassium 2.8 L* Chloride Carbon Dioxide 21 L BUN Creatinine 1.7 H Glucose 159 H POC Glucose 177 H Lactic Acid Calcium Ionized Calcium Phosphorus Magnesium Direct Bilirubin AST ALT Alkaline Phosphatase Lactate Dehydrogenase Troponin T C-Reactive Protein Total Protein Albumin Prealbumin Triglycerides Cholesterol LDL Cholesterol Direct HDL Cholesterol 25-OH Vitamin D Total PTH Intact Urine pH Urine WBC (Auto) Urine Creatinine Urine Total Protein Fluid Total Protein Vancomycin Trough Rheumatoid Factor Complement C4 Miscellaneous Test Crossmatch 09/03/16 09/03/16 09/03/16 12:12 15:07 16:20 WBC RBC Hgb Hct MCV MCH MCHC RDW Plt Count Lymph % (Auto) [place] % (Auto) Lymph # [place] # Baso # Seg Neutrophils % Seg Neuts % (Manual) Lymphocytes % (Manual) Monocytes % (Manual) Eosinophils % (Manual) Basophils % (Manual) Nucleated RBC % Seg Neutrophils # Seg Neutrophils # Man Lymphocytes # (Manual) Monocytes # (Manual) Eosinophils # (Manual) Basophils # (Manual) PT INR Fibrinogen dRVVT Confirm Interp Factor V Activity POC ABG pH 7.452 H POC ABG pCO2 POC ABG pO2 ABG pO2 ABG HCO3 ABG Base Excess ABG Hemoglobin Oxyhemoglobin Sodium Potassium Chloride Carbon Dioxide BUN Creatinine Glucose POC Glucose 178 H Lactic Acid Calcium Ionized Calcium Phosphorus 2.20 L Magnesium 1.60 L Direct Bilirubin AST ALT Alkaline Phosphatase Lactate Dehydrogenase Troponin T C-Reactive Protein Total Protein Albumin Prealbumin Triglycerides Cholesterol LDL Cholesterol Direct HDL Cholesterol 25-OH Vitamin D Total PTH Intact Urine pH Urine WBC (Auto) Urine Creatinine Urine Total Protein Fluid Total Protein Vancomycin Trough Rheumatoid Factor Complement C4 Miscellaneous Test Crossmatch 09/03/16 09/03/16 09/03/16 17:57 17:58 23:50 WBC RBC Hgb Hct MCV MCH MCHC RDW Plt Count Lymph % (Auto) [place] % (Auto) Lymph # [place] # Baso # Seg Neutrophils % Seg Neuts % (Manual) Lymphocytes % (Manual) Monocytes % (Manual) Eosinophils % (Manual) Basophils % (Manual) Nucleated RBC % Seg Neutrophils # Seg Neutrophils # Man Lymphocytes # (Manual) Monocytes # (Manual) Eosinophils # (Manual) Basophils # (Manual) PT INR Fibrinogen dRVVT Confirm Interp Factor V Activity POC ABG pH POC ABG pCO2 POC ABG pO2 ABG pO2 ABG HCO3 ABG Base Excess ABG Hemoglobin Oxyhemoglobin Sodium Potassium Chloride Carbon Dioxide BUN Creatinine Glucose POC Glucose 162 H 145 H Lactic Acid Calcium Ionized Calcium Phosphorus 2.30 L Magnesium Direct Bilirubin AST ALT Alkaline Phosphatase Lactate Dehydrogenase Troponin T C-Reactive Protein Total Protein Albumin Prealbumin Triglycerides Cholesterol LDL Cholesterol Direct HDL Cholesterol 25-OH Vitamin D Total PTH Intact Urine pH Urine WBC (Auto) Urine Creatinine Urine Total Protein Fluid Total Protein Vancomycin Trough Rheumatoid Factor Complement C4 Miscellaneous Test Crossmatch 09/04/16 09/04/16 09/04/16 03:31 03:31 05:42 WBC RBC Hgb 9.7 L D Hct MCV 72 L MCH 23 L MCHC RDW 17.5 H Plt Count Lymph % (Auto) 11.1 L [place] % (Auto) Lymph # [place] # Baso # Seg Neutrophils % 84.3 H Seg Neuts % (Manual) Lymphocytes % (Manual) Monocytes % (Manual) Eosinophils % (Manual) Basophils % (Manual) Nucleated RBC % Seg Neutrophils # 8.9 H Seg Neutrophils # Man Lymphocytes # (Manual) Monocytes # (Manual) Eosinophils # (Manual) Basophils # (Manual) PT INR Fibrinogen dRVVT Confirm Interp Factor V Activity POC ABG pH POC ABG pCO2 POC ABG pO2 ABG pO2 ABG HCO3 ABG Base Excess ABG Hemoglobin Oxyhemoglobin Sodium 135 L Potassium 2.9 L* Chloride 97.2 L Carbon Dioxide 19 L BUN Creatinine 1.7 H Glucose 170 H POC Glucose 152 H Lactic Acid Calcium Ionized Calcium Phosphorus Magnesium Direct Bilirubin AST ALT Alkaline Phosphatase Lactate Dehydrogenase Troponin T C-Reactive Protein Total Protein Albumin Prealbumin Triglycerides 160 H Cholesterol LDL Cholesterol Direct HDL Cholesterol 31 L 25-OH Vitamin D Total PTH Intact Urine pH Urine WBC (Auto) Urine Creatinine Urine Total Protein Fluid Total Protein Vancomycin Trough Rheumatoid Factor Complement C4 Miscellaneous Test Crossmatch 09/04/16 09/04/16 09/04/16 11:34 17:46 23:29 WBC RBC Hgb Hct MCV MCH MCHC RDW Plt Count Lymph % (Auto) [place] % (Auto) Lymph # [place] # Baso # Seg Neutrophils % Seg Neuts % (Manual) Lymphocytes % (Manual) Monocytes % (Manual) Eosinophils % (Manual) Basophils % (Manual) Nucleated RBC % Seg Neutrophils # Seg Neutrophils # Man Lymphocytes # (Manual) Monocytes # (Manual) Eosinophils # (Manual) Basophils # (Manual) PT INR Fibrinogen dRVVT Confirm Interp Factor V Activity POC ABG pH POC ABG pCO2 POC ABG pO2 ABG pO2 ABG HCO3 ABG Base Excess ABG Hemoglobin Oxyhemoglobin Sodium Potassium Chloride Carbon Dioxide BUN Creatinine Glucose POC Glucose 165 H 210 H 139 H Lactic Acid Calcium Ionized Calcium Phosphorus Magnesium Direct Bilirubin AST ALT Alkaline Phosphatase Lactate Dehydrogenase Troponin T C-Reactive Protein Total Protein Albumin Prealbumin Triglycerides Cholesterol LDL Cholesterol Direct HDL Cholesterol 25-OH Vitamin D Total PTH Intact Urine pH Urine WBC (Auto) Urine Creatinine Urine Total Protein Fluid Total Protein Vancomycin Trough Rheumatoid Factor Complement C4 Miscellaneous Test Crossmatch 09/05/16 09/05/16 09/05/16 04:05 04:05 05:38 WBC RBC Hgb Hct MCV 76 L D MCH 23 L MCHC RDW 17.8 H Plt Count Lymph % (Auto) [place] % (Auto) Lymph # [place] # Baso # Seg Neutrophils % Seg Neuts % (Manual) Lymphocytes % (Manual) Monocytes % (Manual) Eosinophils % (Manual) Basophils % (Manual) Nucleated RBC % Seg Neutrophils # Seg Neutrophils # Man Lymphocytes # (Manual) Monocytes # (Manual) Eosinophils # (Manual) Basophils # (Manual) PT INR Fibrinogen dRVVT Confirm Interp Factor V Activity POC ABG pH POC ABG pCO2 POC ABG pO2 ABG pO2 ABG HCO3 ABG Base Excess ABG Hemoglobin Oxyhemoglobin Sodium 134 L Potassium Chloride Carbon Dioxide 18 L BUN Creatinine 1.8 H Glucose 192 H POC Glucose 175 H Lactic Acid Calcium Ionized Calcium Phosphorus Magnesium Direct Bilirubin AST ALT Alkaline Phosphatase Lactate Dehydrogenase Troponin T C-Reactive Protein Total Protein Albumin Prealbumin Triglycerides Cholesterol LDL Cholesterol Direct HDL Cholesterol 25-OH Vitamin D Total PTH Intact Urine pH Urine WBC (Auto) Urine Creatinine Urine Total Protein Fluid Total Protein Vancomycin Trough Rheumatoid Factor Complement C4 Miscellaneous Test Crossmatch 09/05/16 09/05/16 09/05/16 11:38 17:48 23:22 WBC RBC Hgb Hct MCV MCH MCHC RDW Plt Count Lymph % (Auto) [place] % (Auto) Lymph # [place] # Baso # Seg Neutrophils % Seg Neuts % (Manual) Lymphocytes % (Manual) Monocytes % (Manual) Eosinophils % (Manual) Basophils % (Manual) Nucleated RBC % Seg Neutrophils # Seg Neutrophils # Man Lymphocytes # (Manual) Monocytes # (Manual) Eosinophils # (Manual) Basophils # (Manual) PT INR Fibrinogen dRVVT Confirm Interp Factor V Activity POC ABG pH POC ABG pCO2 POC ABG pO2 ABG pO2 ABG HCO3 ABG Base Excess ABG Hemoglobin Oxyhemoglobin Sodium Potassium Chloride Carbon Dioxide BUN Creatinine Glucose POC Glucose 164 H 186 H 195 H Lactic Acid Calcium Ionized Calcium Phosphorus Magnesium Direct Bilirubin AST ALT Alkaline Phosphatase Lactate Dehydrogenase Troponin T C-Reactive Protein Total Protein Albumin Prealbumin Triglycerides Cholesterol LDL Cholesterol Direct HDL Cholesterol 25-OH Vitamin D Total PTH Intact Urine pH Urine WBC (Auto) Urine Creatinine Urine Total Protein Fluid Total Protein Vancomycin Trough Rheumatoid Factor Complement C4 Miscellaneous Test Crossmatch 09/06/16 09/06/16 09/06/16 04:12 05:59 07:32 WBC RBC Hgb Hct MCV MCH MCHC RDW Plt Count Lymph % (Auto) [place] % (Auto) Lymph # [place] # Baso # Seg Neutrophils % Seg Neuts % (Manual) Lymphocytes % (Manual) Monocytes % (Manual) Eosinophils % (Manual) Basophils % (Manual) Nucleated RBC % Seg Neutrophils # Seg Neutrophils # Man Lymphocytes # (Manual) Monocytes # (Manual) Eosinophils # (Manual) Basophils # (Manual) PT INR Fibrinogen dRVVT Confirm Interp Factor V Activity POC ABG pH 7.514 H POC ABG pCO2 29.1 L POC ABG pO2 72 L ABG pO2 ABG HCO3 ABG Base Excess ABG Hemoglobin Oxyhemoglobin Sodium 133 L Potassium 3.4 L Chloride 94.9 L Carbon Dioxide 19 L BUN 30 H Creatinine 2.1 H Glucose 139 H POC Glucose 146 H Lactic Acid Calcium Ionized Calcium Phosphorus Magnesium Direct Bilirubin AST ALT Alkaline Phosphatase Lactate Dehydrogenase Troponin T C-Reactive Protein Total Protein Albumin Prealbumin Triglycerides Cholesterol LDL Cholesterol Direct HDL Cholesterol 25-OH Vitamin D Total PTH Intact Urine pH Urine WBC (Auto) Urine Creatinine Urine Total Protein Fluid Total Protein Vancomycin Trough Rheumatoid Factor Complement C4 Miscellaneous Test Crossmatch 09/06/16 09/06/16 09/06/16 11:57 17:58 19:02 WBC RBC Hgb Hct MCV MCH MCHC RDW Plt Count Lymph % (Auto) [place] % (Auto) Lymph # [place] # Baso # Seg Neutrophils % Seg Neuts % (Manual) Lymphocytes % (Manual) Monocytes % (Manual) Eosinophils % (Manual) Basophils % (Manual) Nucleated RBC % Seg Neutrophils # Seg Neutrophils # Man Lymphocytes # (Manual) Monocytes # (Manual) Eosinophils # (Manual) Basophils # (Manual) PT INR Fibrinogen dRVVT Confirm Interp Factor V Activity POC ABG pH 7.465 H POC ABG pCO2 32.0 L POC ABG pO2 ABG pO2 ABG HCO3 ABG Base Excess ABG Hemoglobin Oxyhemoglobin Sodium Potassium Chloride Carbon Dioxide BUN Creatinine Glucose POC Glucose 165 H 160 H Lactic Acid Calcium Ionized Calcium Phosphorus Magnesium Direct Bilirubin AST ALT Alkaline Phosphatase Lactate Dehydrogenase Troponin T C-Reactive Protein Total Protein Albumin Prealbumin Triglycerides Cholesterol LDL Cholesterol Direct HDL Cholesterol 25-OH Vitamin D Total PTH Intact Urine pH Urine WBC (Auto) Urine Creatinine Urine Total Protein Fluid Total Protein Vancomycin Trough Rheumatoid Factor Complement C4 Miscellaneous Test Crossmatch 09/06/16 09/07/16 09/07/16 23:45 02:47 02:47 WBC RBC Hgb Hct MCV MCH MCHC RDW Plt Count Lymph % (Auto) [place] % (Auto) Lymph # [place] # Baso # Seg Neutrophils % Seg Neuts % (Manual) Lymphocytes % (Manual) Monocytes % (Manual) Eosinophils % (Manual) Basophils % (Manual) Nucleated RBC % Seg Neutrophils # Seg Neutrophils # Man Lymphocytes # (Manual) Monocytes # (Manual) Eosinophils # (Manual) Basophils # (Manual) PT INR Fibrinogen dRVVT Confirm Interp Factor V Activity POC ABG pH POC ABG pCO2 POC ABG pO2 ABG pO2 ABG HCO3 ABG Base Excess ABG Hemoglobin Oxyhemoglobin Sodium Potassium Chloride Carbon Dioxide BUN Creatinine Glucose POC Glucose 204 H Lactic Acid Calcium Ionized Calcium Phosphorus Magnesium Direct Bilirubin AST ALT Alkaline Phosphatase Lactate Dehydrogenase Troponin T C-Reactive Protein Total Protein Albumin Prealbumin Triglycerides Cholesterol LDL Cholesterol Direct HDL Cholesterol 25-OH Vitamin D Total PTH Intact Urine pH Urine WBC (Auto) 68.0 H Urine Creatinine 106.1 H Urine Total Protein Fluid Total Protein Vancomycin Trough Rheumatoid Factor Complement C4 Miscellaneous Test Crossmatch 09/07/16 09/07/16 09/07/16 04:50 06:19 06:39 WBC RBC Hgb Hct MCV MCH MCHC RDW Plt Count Lymph % (Auto) [place] % (Auto) Lymph # [place] # Baso # Seg Neutrophils % Seg Neuts % (Manual) Lymphocytes % (Manual) Monocytes % (Manual) Eosinophils % (Manual) Basophils % (Manual) Nucleated RBC % Seg Neutrophils # Seg Neutrophils # Man Lymphocytes # (Manual) Monocytes # (Manual) Eosinophils # (Manual) Basophils # (Manual) PT INR Fibrinogen dRVVT Confirm Interp Factor V Activity POC ABG pH 7.457 H POC ABG pCO2 32.1 L POC ABG pO2 76 L ABG pO2 ABG HCO3 ABG Base Excess ABG Hemoglobin Oxyhemoglobin Sodium 132 L Potassium Chloride 94.7 L Carbon Dioxide BUN 53 H Creatinine 2.9 H Glucose 151 H POC Glucose 149 H Lactic Acid Calcium Ionized Calcium Phosphorus Magnesium Direct Bilirubin AST ALT Alkaline Phosphatase Lactate Dehydrogenase Troponin T C-Reactive Protein Total Protein Albumin Prealbumin Triglycerides Cholesterol LDL Cholesterol Direct HDL Cholesterol 25-OH Vitamin D Total PTH Intact Urine pH Urine WBC (Auto) Urine Creatinine Urine Total Protein Fluid Total Protein Vancomycin Trough Rheumatoid Factor Complement C4 Miscellaneous Test Crossmatch 09/07/16 09/07/16 09/07/16 09:20 11:43 11:43 WBC 19.4 H RBC Hgb 8.3 L Hct 26.4 L D MCV 72 L D MCH 22 L MCHC RDW 17.9 H Plt Count Lymph % (Auto) 8.5 L [place] % (Auto) Lymph # [place] # 1.0 H Baso # Seg Neutrophils % 85.8 H Seg Neuts % (Manual) Lymphocytes % (Manual) Monocytes % (Manual) Eosinophils % (Manual) Basophils % (Manual) Nucleated RBC % Seg Neutrophils # 16.6 H Seg Neutrophils # Man Lymphocytes # (Manual) Monocytes # (Manual) Eosinophils # (Manual) Basophils # (Manual) PT INR Fibrinogen dRVVT Confirm Interp Factor V Activity POC ABG pH POC ABG pCO2 POC ABG pO2 ABG pO2 ABG HCO3 ABG Base Excess ABG Hemoglobin Oxyhemoglobin Sodium 134 L Potassium Chloride 97.2 L Carbon Dioxide 20 L BUN 58 H Creatinine 2.9 H Glucose 147 H POC Glucose Lactic Acid Calcium Ionized Calcium Phosphorus 2.40 L Magnesium 2.40 H Direct Bilirubin AST ALT Alkaline Phosphatase Lactate Dehydrogenase Troponin T C-Reactive Protein Total Protein 5.8 L Albumin 2.2 L Prealbumin Triglycerides Cholesterol LDL Cholesterol Direct HDL Cholesterol 25-OH Vitamin D Total PTH Intact Urine pH Urine WBC (Auto) Urine Creatinine Urine Total Protein Fluid Total Protein Vancomycin Trough Rheumatoid Factor Complement C4 58 H Miscellaneous Test Crossmatch 09/07/16 09/07/16 09/07/16 11:50 16:00 17:31 WBC RBC Hgb Hct MCV MCH MCHC RDW Plt Count Lymph % (Auto) [place] % (Auto) Lymph # [place] # Baso # Seg Neutrophils % Seg Neuts % (Manual) Lymphocytes % (Manual) Monocytes % (Manual) Eosinophils % (Manual) Basophils % (Manual) Nucleated RBC % Seg Neutrophils # Seg Neutrophils # Man Lymphocytes # (Manual) Monocytes # (Manual) Eosinophils # (Manual) Basophils # (Manual) PT INR Fibrinogen dRVVT Confirm Interp Factor V Activity POC ABG pH POC ABG pCO2 POC ABG pO2 158 H ABG pO2 ABG HCO3 ABG Base Excess ABG Hemoglobin Oxyhemoglobin Sodium Potassium Chloride Carbon Dioxide BUN Creatinine Glucose POC Glucose 175 H Lactic Acid Calcium Ionized Calcium Phosphorus Magnesium Direct Bilirubin AST ALT Alkaline Phosphatase Lactate Dehydrogenase Troponin T C-Reactive Protein Total Protein Albumin Prealbumin Triglycerides Cholesterol LDL Cholesterol Direct HDL Cholesterol 25-OH Vitamin D Total PTH Intact Urine pH Urine WBC (Auto) Urine Creatinine 66.3 H Urine Total Protein Fluid Total Protein Vancomycin Trough Rheumatoid Factor Complement C4 Miscellaneous Test Crossmatch 09/07/16 09/08/16 09/08/16 23:50 05:46 06:18 WBC 17.8 H RBC 3.58 L Hgb 8.1 L Hct 25.5 L MCV 71 L MCH 23 L MCHC RDW 18.4 H Plt Count Lymph % (Auto) [place] % (Auto) Lymph # [place] # Baso # Seg Neutrophils % Seg Neuts % (Manual) 92.0 H Lymphocytes % (Manual) 6.0 L Monocytes % (Manual) Eosinophils % (Manual) Basophils % (Manual) Nucleated RBC % Seg Neutrophils # Seg Neutrophils # Man 16.4 H Lymphocytes # (Manual) 1.1 L Monocytes # (Manual) Eosinophils # (Manual) Basophils # (Manual) PT INR Fibrinogen dRVVT Confirm Interp Factor V Activity POC ABG pH POC ABG pCO2 34.3 L POC ABG pO2 71 L ABG pO2 ABG HCO3 ABG Base Excess ABG Hemoglobin Oxyhemoglobin Sodium Potassium Chloride Carbon Dioxide BUN Creatinine Glucose POC Glucose 216 H Lactic Acid Calcium Ionized Calcium Phosphorus Magnesium Direct Bilirubin AST ALT Alkaline Phosphatase Lactate Dehydrogenase Troponin T C-Reactive Protein Total Protein Albumin Prealbumin Triglycerides Cholesterol LDL Cholesterol Direct HDL Cholesterol 25-OH Vitamin D Total PTH Intact Urine pH Urine WBC (Auto) Urine Creatinine Urine Total Protein Fluid Total Protein Vancomycin Trough Rheumatoid Factor Complement C4 Miscellaneous Test Crossmatch 09/08/16 09/08/16 09/08/16 06:18 06:51 10:55 WBC RBC Hgb Hct MCV MCH MCHC RDW Plt Count Lymph % (Auto) [place] % (Auto) Lymph # [place] # Baso # Seg Neutrophils % Seg Neuts % (Manual) Lymphocytes % (Manual) Monocytes % (Manual) Eosinophils % (Manual) Basophils % (Manual) Nucleated RBC % Seg Neutrophils # Seg Neutrophils # Man Lymphocytes # (Manual) Monocytes # (Manual) Eosinophils # (Manual) Basophils # (Manual) PT INR Fibrinogen dRVVT Confirm Interp Factor V Activity POC ABG pH POC ABG pCO2 POC ABG pO2 ABG pO2 ABG HCO3 ABG Base Excess ABG Hemoglobin Oxyhemoglobin Sodium 133 L Potassium Chloride 96.9 L Carbon Dioxide 20 L BUN 63 H Creatinine 2.7 H Glucose 195 H POC Glucose 204 H 169 H Lactic Acid Calcium Ionized Calcium Phosphorus Magnesium Direct Bilirubin AST ALT Alkaline Phosphatase Lactate Dehydrogenase Troponin T C-Reactive Protein Total Protein Albumin Prealbumin Triglycerides Cholesterol LDL Cholesterol Direct HDL Cholesterol 25-OH Vitamin D Total PTH Intact Urine pH Urine WBC (Auto) Urine Creatinine Urine Total Protein Fluid Total Protein Vancomycin Trough Rheumatoid Factor Complement C4 Miscellaneous Test Crossmatch 09/08/16 09/08/16 09/08/16 11:48 11:48 11:48 WBC RBC Hgb Hct MCV MCH MCHC RDW Plt Count Lymph % (Auto) [place] % (Auto) Lymph # [place] # Baso # Seg Neutrophils % Seg Neuts % (Manual) Lymphocytes % (Manual) Monocytes % (Manual) Eosinophils % (Manual) Basophils % (Manual) Nucleated RBC % Seg Neutrophils # Seg Neutrophils # Man Lymphocytes # (Manual) Monocytes # (Manual) Eosinophils # (Manual) Basophils # (Manual) PT INR Fibrinogen 750 H dRVVT Confirm Interp Factor V Activity POC ABG pH POC ABG pCO2 POC ABG pO2 ABG pO2 ABG HCO3 ABG Base Excess ABG Hemoglobin Oxyhemoglobin Sodium Potassium Chloride Carbon Dioxide BUN Creatinine Glucose POC Glucose Lactic Acid Calcium Ionized Calcium Phosphorus Magnesium Direct Bilirubin AST ALT Alkaline Phosphatase Lactate Dehydrogenase Troponin T C-Reactive Protein 15.70 H Total Protein Albumin Prealbumin Triglycerides Cholesterol LDL Cholesterol Direct HDL Cholesterol 25-OH Vitamin D Total PTH Intact Urine pH Urine WBC (Auto) Urine Creatinine Urine Total Protein Fluid Total Protein Vancomycin Trough Rheumatoid Factor 24 H Complement C4 Miscellaneous Test Crossmatch 09/08/16 09/08/16 09/09/16 15:35 18:25 00:24 WBC RBC Hgb Hct MCV MCH MCHC RDW Plt Count Lymph % (Auto) [place] % (Auto) Lymph # [place] # Baso # Seg Neutrophils % Seg Neuts % (Manual) Lymphocytes % (Manual) Monocytes % (Manual) Eosinophils % (Manual) Basophils % (Manual) Nucleated RBC % Seg Neutrophils # Seg Neutrophils # Man Lymphocytes # (Manual) Monocytes # (Manual) Eosinophils # (Manual) Basophils # (Manual) PT INR Fibrinogen dRVVT Confirm Interp Factor V Activity 182 H POC ABG pH POC ABG pCO2 POC ABG pO2 ABG pO2 ABG HCO3 ABG Base Excess ABG Hemoglobin Oxyhemoglobin Sodium Potassium Chloride Carbon Dioxide BUN Creatinine Glucose POC Glucose 184 H 216 H Lactic Acid Calcium Ionized Calcium Phosphorus Magnesium Direct Bilirubin AST ALT Alkaline Phosphatase Lactate Dehydrogenase Troponin T C-Reactive Protein Total Protein Albumin Prealbumin Triglycerides Cholesterol LDL Cholesterol Direct HDL Cholesterol 25-OH Vitamin D Total PTH Intact Urine pH Urine WBC (Auto) Urine Creatinine Urine Total Protein Fluid Total Protein Vancomycin Trough Rheumatoid Factor Complement C4 Miscellaneous Test Crossmatch 09/09/16 09/09/16 09/09/16 03:00 03:00 04:04 WBC 27.9 H RBC Hgb 8.7 L Hct 28.1 L MCV 72 L MCH 22 L MCHC RDW 18.4 H Plt Count 485 H Lymph % (Auto) [place] % (Auto) Lymph # [place] # Baso # Seg Neutrophils % Seg Neuts % (Manual) 77.0 H Lymphocytes % (Manual) 9.0 L Monocytes % (Manual) Eosinophils % (Manual) Basophils % (Manual) Nucleated RBC % Seg Neutrophils # Seg Neutrophils # Man 21.5 H Lymphocytes # (Manual) Monocytes # (Manual) 2.0 H Eosinophils # (Manual) Basophils # (Manual) PT INR Fibrinogen dRVVT Confirm Interp Factor V Activity POC ABG pH POC ABG pCO2 POC ABG pO2 121 H ABG pO2 ABG HCO3 ABG Base Excess ABG Hemoglobin Oxyhemoglobin Sodium 135 L Potassium Chloride 96.3 L Carbon Dioxide 21 L BUN 83 H Creatinine 3.0 H Glucose 135 H POC Glucose Lactic Acid Calcium Ionized Calcium Phosphorus Magnesium Direct Bilirubin AST ALT Alkaline Phosphatase Lactate Dehydrogenase Troponin T C-Reactive Protein Total Protein Albumin Prealbumin Triglycerides Cholesterol LDL Cholesterol Direct HDL Cholesterol 25-OH Vitamin D Total PTH Intact Urine pH Urine WBC (Auto) Urine Creatinine Urine Total Protein Fluid Total Protein Vancomycin Trough Rheumatoid Factor Complement C4 Miscellaneous Test Crossmatch 09/09/16 09/09/16 09/09/16 05:41 11:55 14:13 WBC RBC Hgb Hct MCV MCH MCHC RDW Plt Count Lymph % (Auto) [place] % (Auto) Lymph # [place] # Baso # Seg Neutrophils % Seg Neuts % (Manual) Lymphocytes % (Manual) Monocytes % (Manual) Eosinophils % (Manual) Basophils % (Manual) Nucleated RBC % Seg Neutrophils # Seg Neutrophils # Man Lymphocytes # (Manual) Monocytes # (Manual) Eosinophils # (Manual) Basophils # (Manual) PT INR Fibrinogen dRVVT Confirm Interp Factor V Activity POC ABG pH POC ABG pCO2 POC ABG pO2 ABG pO2 ABG HCO3 ABG Base Excess ABG Hemoglobin Oxyhemoglobin Sodium Potassium Chloride Carbon Dioxide BUN Creatinine Glucose POC Glucose 155 H 186 H Lactic Acid Calcium Ionized Calcium Phosphorus Magnesium Direct Bilirubin AST ALT Alkaline Phosphatase Lactate Dehydrogenase Troponin T C-Reactive Protein Total Protein Albumin Prealbumin Triglycerides Cholesterol LDL Cholesterol Direct HDL Cholesterol 25-OH Vitamin D Total PTH Intact Urine pH Urine WBC (Auto) 25.0 H Urine Creatinine Urine Total Protein Fluid Total Protein Vancomycin Trough Rheumatoid Factor Complement C4 Miscellaneous Test Crossmatch 09/09/16 09/09/16 09/10/16 17:33 23:13 05:09 WBC RBC Hgb Hct MCV MCH MCHC RDW Plt Count Lymph % (Auto) [place] % (Auto) Lymph # [place] # Baso # Seg Neutrophils % Seg Neuts % (Manual) Lymphocytes % (Manual) Monocytes % (Manual) Eosinophils % (Manual) Basophils % (Manual) Nucleated RBC % Seg Neutrophils # Seg Neutrophils # Man Lymphocytes # (Manual) Monocytes # (Manual) Eosinophils # (Manual) Basophils # (Manual) PT INR Fibrinogen dRVVT Confirm Interp Factor V Activity POC ABG pH POC ABG pCO2 POC ABG pO2 74 L ABG pO2 ABG HCO3 ABG Base Excess ABG Hemoglobin Oxyhemoglobin Sodium Potassium Chloride Carbon Dioxide BUN Creatinine Glucose POC Glucose 211 H 215 H Lactic Acid Calcium Ionized Calcium Phosphorus Magnesium Direct Bilirubin AST ALT Alkaline Phosphatase Lactate Dehydrogenase Troponin T C-Reactive Protein Total Protein Albumin Prealbumin Triglycerides Cholesterol LDL Cholesterol Direct HDL Cholesterol 25-OH Vitamin D Total PTH Intact Urine pH Urine WBC (Auto) Urine Creatinine Urine Total Protein Fluid Total Protein Vancomycin Trough Rheumatoid Factor Complement C4 Miscellaneous Test Crossmatch 09/10/16 09/10/16 09/10/16 05:17 05:17 11:31 WBC 15.8 H RBC 3.25 L Hgb 7.3 L Hct 22.9 L MCV 71 L MCH 23 L MCHC RDW 18.4 H Plt Count Lymph % (Auto) [place] % (Auto) Lymph # [place] # Baso # Seg Neutrophils % Seg Neuts % (Manual) 91.0 H Lymphocytes % (Manual) 4.0 L Monocytes % (Manual) Eosinophils % (Manual) Basophils % (Manual) Nucleated RBC % Seg Neutrophils # Seg Neutrophils # Man 14.4 H Lymphocytes # (Manual) 0.6 L Monocytes # (Manual) Eosinophils # (Manual) Basophils # (Manual) PT INR Fibrinogen dRVVT Confirm Interp Factor V Activity POC ABG pH POC ABG pCO2 POC ABG pO2 ABG pO2 ABG HCO3 ABG Base Excess ABG Hemoglobin Oxyhemoglobin Sodium Potassium Chloride Carbon Dioxide 21 L BUN 93 H Creatinine 2.9 H Glucose 146 H POC Glucose 188 H Lactic Acid Calcium 8.1 L Ionized Calcium Phosphorus Magnesium Direct Bilirubin AST ALT Alkaline Phosphatase Lactate Dehydrogenase Troponin T C-Reactive Protein Total Protein Albumin Prealbumin Triglycerides Cholesterol LDL Cholesterol Direct HDL Cholesterol 25-OH Vitamin D Total PTH Intact Urine pH Urine WBC (Auto) Urine Creatinine Urine Total Protein Fluid Total Protein Vancomycin Trough Rheumatoid Factor Complement C4 Miscellaneous Test Crossmatch 09/10/16 09/10/16 09/10/16 13:17 17:20 23:32 WBC RBC Hgb Hct MCV MCH MCHC RDW Plt Count Lymph % (Auto) [place] % (Auto) Lymph # [place] # Baso # Seg Neutrophils % Seg Neuts % (Manual) Lymphocytes % (Manual) Monocytes % (Manual) Eosinophils % (Manual) Basophils % (Manual) Nucleated RBC % Seg Neutrophils # Seg Neutrophils # Man Lymphocytes # (Manual) Monocytes # (Manual) Eosinophils # (Manual) Basophils # (Manual) PT INR Fibrinogen dRVVT Confirm Interp Factor V Activity POC ABG pH POC ABG pCO2 POC ABG pO2 ABG pO2 ABG HCO3 ABG Base Excess ABG Hemoglobin Oxyhemoglobin Sodium Potassium Chloride Carbon Dioxide BUN Creatinine Glucose POC Glucose 199 H 186 H Lactic Acid Calcium Ionized Calcium Phosphorus Magnesium Direct Bilirubin AST ALT Alkaline Phosphatase Lactate Dehydrogenase Troponin T C-Reactive Protein Total Protein Albumin Prealbumin Triglycerides Cholesterol LDL Cholesterol Direct HDL Cholesterol 25-OH Vitamin D Total PTH Intact Urine pH Urine WBC (Auto) Urine Creatinine Urine Total Protein Fluid Total Protein Vancomycin Trough Rheumatoid Factor Complement C4 Miscellaneous Test Crossmatch See Detail 09/11/16 09/11/16 09/11/16 05:10 05:10 05:17 WBC 28.4 H RBC Hgb 9.2 L Hct 29.3 L D MCV 73 L MCH 23 L MCHC RDW 18.9 H Plt Count 452 H Lymph % (Auto) [place] % (Auto) Lymph # [place] # Baso # Seg Neutrophils % Seg Neuts % (Manual) 89.5 H Lymphocytes % (Manual) 2.0 L Monocytes % (Manual) Eosinophils % (Manual) Basophils % (Manual) Nucleated RBC % Seg Neutrophils # Seg Neutrophils # Man 25.4 H Lymphocytes # (Manual) 0.6 L Monocytes # (Manual) 1.3 H Eosinophils # (Manual) Basophils # (Manual) PT INR Fibrinogen dRVVT Confirm Interp Factor V Activity POC ABG pH POC ABG pCO2 POC ABG pO2 ABG pO2 ABG HCO3 ABG Base Excess ABG Hemoglobin Oxyhemoglobin Sodium 136 L Potassium Chloride Carbon Dioxide 18 L BUN 107 H Creatinine 2.6 H Glucose 187 H POC Glucose 230 H Lactic Acid Calcium 8.3 L Ionized Calcium Phosphorus Magnesium Direct Bilirubin AST ALT Alkaline Phosphatase Lactate Dehydrogenase Troponin T C-Reactive Protein Total Protein Albumin Prealbumin Triglycerides Cholesterol LDL Cholesterol Direct HDL Cholesterol 25-OH Vitamin D Total PTH Intact Urine pH Urine WBC (Auto) Urine Creatinine Urine Total Protein Fluid Total Protein Vancomycin Trough Rheumatoid Factor Complement C4 Miscellaneous Test Crossmatch 09/11/16 09/11/16 09/11/16 05:55 12:02 17:32 WBC RBC Hgb Hct MCV MCH MCHC RDW Plt Count Lymph % (Auto) [place] % (Auto) Lymph # [place] # Baso # Seg Neutrophils % Seg Neuts % (Manual) Lymphocytes % (Manual) Monocytes % (Manual) Eosinophils % (Manual) Basophils % (Manual) Nucleated RBC % Seg Neutrophils # Seg Neutrophils # Man Lymphocytes # (Manual) Monocytes # (Manual) Eosinophils # (Manual) Basophils # (Manual) PT INR Fibrinogen dRVVT Confirm Interp Factor V Activity POC ABG pH POC ABG pCO2 33.8 L POC ABG pO2 ABG pO2 ABG HCO3 ABG Base Excess ABG Hemoglobin Oxyhemoglobin Sodium Potassium Chloride Carbon Dioxide BUN Creatinine Glucose POC Glucose 191 H 239 H Lactic Acid Calcium Ionized Calcium Phosphorus Magnesium Direct Bilirubin AST ALT Alkaline Phosphatase Lactate Dehydrogenase Troponin T C-Reactive Protein Total Protein Albumin Prealbumin Triglycerides Cholesterol LDL Cholesterol Direct HDL Cholesterol 25-OH Vitamin D Total PTH Intact Urine pH Urine WBC (Auto) Urine Creatinine Urine Total Protein Fluid Total Protein Vancomycin Trough Rheumatoid Factor Complement C4 Miscellaneous Test Crossmatch 09/11/16 09/12/16 09/12/16 23:52 05:09 05:32 WBC RBC Hgb Hct MCV MCH MCHC RDW Plt Count Lymph % (Auto) [place] % (Auto) Lymph # [place] # Baso # Seg Neutrophils % Seg Neuts % (Manual) Lymphocytes % (Manual) Monocytes % (Manual) Eosinophils % (Manual) Basophils % (Manual) Nucleated RBC % Seg Neutrophils # Seg Neutrophils # Man Lymphocytes # (Manual) Monocytes # (Manual) Eosinophils # (Manual) Basophils # (Manual) PT INR Fibrinogen dRVVT Confirm Interp Factor V Activity POC ABG pH POC ABG pCO2 34.6 L POC ABG pO2 ABG pO2 ABG HCO3 ABG Base Excess ABG Hemoglobin Oxyhemoglobin Sodium Potassium Chloride Carbon Dioxide BUN Creatinine Glucose POC Glucose 265 H 184 H Lactic Acid Calcium Ionized Calcium Phosphorus Magnesium Direct Bilirubin AST ALT Alkaline Phosphatase Lactate Dehydrogenase Troponin T C-Reactive Protein Total Protein Albumin Prealbumin Triglycerides Cholesterol LDL Cholesterol Direct HDL Cholesterol 25-OH Vitamin D Total PTH Intact Urine pH Urine WBC (Auto) Urine Creatinine Urine Total Protein Fluid Total Protein Vancomycin Trough Rheumatoid Factor Complement C4 Miscellaneous Test Crossmatch 09/12/16 09/12/16 09/12/16 06:45 06:45 07:22 WBC 31.7 H RBC 3.54 L Hgb 8.3 L Hct 25.9 L MCV 73 L MCH 23 L MCHC RDW 18.9 H Plt Count Lymph % (Auto) [place] % (Auto) Lymph # [place] # Baso # Seg Neutrophils % Seg Neuts % (Manual) 88.5 H Lymphocytes % (Manual) 4.5 L Monocytes % (Manual) Eosinophils % (Manual) Basophils % (Manual) Nucleated RBC % Seg Neutrophils # Seg Neutrophils # Man 28.1 H Lymphocytes # (Manual) Monocytes # (Manual) 1.0 H Eosinophils # (Manual) Basophils # (Manual) PT INR Fibrinogen dRVVT Confirm Interp Factor V Activity POC ABG pH POC ABG pCO2 POC ABG pO2 ABG pO2 ABG HCO3 ABG Base Excess ABG Hemoglobin Oxyhemoglobin Sodium Potassium Chloride Carbon Dioxide 20 L BUN 115 H Creatinine 2.7 H Glucose 165 H POC Glucose Lactic Acid Calcium 8.0 L Ionized Calcium Phosphorus Magnesium Direct Bilirubin AST ALT Alkaline Phosphatase Lactate Dehydrogenase Troponin T C-Reactive Protein Total Protein Albumin Prealbumin Triglycerides 217 H Cholesterol LDL Cholesterol Direct HDL Cholesterol 25-OH Vitamin D Total PTH Intact Urine pH Urine WBC (Auto) Urine Creatinine Urine Total Protein Fluid Total Protein Vancomycin Trough Rheumatoid Factor Complement C4 Miscellaneous Test Crossmatch 09/12/16 09/12/16 09/12/16 07:22 09:59 12:21 WBC RBC Hgb Hct MCV MCH MCHC RDW Plt Count Lymph % (Auto) [place] % (Auto) Lymph # [place] # Baso # Seg Neutrophils % Seg Neuts % (Manual) Lymphocytes % (Manual) Monocytes % (Manual) Eosinophils % (Manual) Basophils % (Manual) Nucleated RBC % Seg Neutrophils # Seg Neutrophils # Man Lymphocytes # (Manual) Monocytes # (Manual) Eosinophils # (Manual) Basophils # (Manual) PT INR Fibrinogen dRVVT Confirm Interp Positive H Factor V Activity POC ABG pH POC ABG pCO2 POC ABG pO2 ABG pO2 ABG HCO3 ABG Base Excess ABG Hemoglobin Oxyhemoglobin Sodium Potassium Chloride Carbon Dioxide BUN Creatinine Glucose POC Glucose 224 H Lactic Acid Calcium Ionized Calcium Phosphorus Magnesium Direct Bilirubin AST ALT Alkaline Phosphatase Lactate Dehydrogenase Troponin T C-Reactive Protein 1.70 H Total Protein Albumin Prealbumin Triglycerides Cholesterol LDL Cholesterol Direct HDL Cholesterol 25-OH Vitamin D Total PTH Intact Urine pH Urine WBC (Auto) Urine Creatinine Urine Total Protein Fluid Total Protein Vancomycin Trough Rheumatoid Factor Complement C4 Miscellaneous Test Crossmatch 09/12/16 09/12/16 09/13/16 16:51 23:28 04:00 WBC 45.0 H* RBC Hgb 9.4 L Hct MCV 75 L MCH 23 L MCHC RDW 19.0 H Plt Count 470 H Lymph % (Auto) [place] % (Auto) Lymph # [place] # Baso # Seg Neutrophils % Seg Neuts % (Manual) 89.0 H Lymphocytes % (Manual) 5.0 L Monocytes % (Manual) Eosinophils % (Manual) Basophils % (Manual) Nucleated RBC % Seg Neutrophils # Seg Neutrophils # Man 40.1 H Lymphocytes # (Manual) Monocytes # (Manual) Eosinophils # (Manual) Basophils # (Manual) PT INR Fibrinogen dRVVT Confirm Interp Factor V Activity POC ABG pH POC ABG pCO2 POC ABG pO2 ABG pO2 ABG HCO3 ABG Base Excess ABG Hemoglobin Oxyhemoglobin Sodium Potassium Chloride Carbon Dioxide BUN Creatinine Glucose POC Glucose 169 H 150 H Lactic Acid Calcium Ionized Calcium Phosphorus Magnesium Direct Bilirubin AST ALT Alkaline Phosphatase Lactate Dehydrogenase Troponin T C-Reactive Protein Total Protein Albumin Prealbumin Triglycerides Cholesterol LDL Cholesterol Direct HDL Cholesterol 25-OH Vitamin D Total PTH Intact Urine pH Urine WBC (Auto) Urine Creatinine Urine Total Protein Fluid Total Protein Vancomycin Trough Rheumatoid Factor Complement C4 Miscellaneous Test Crossmatch 09/13/16 09/13/16 09/13/16 04:00 11:26 17:31 WBC RBC Hgb Hct MCV MCH MCHC RDW Plt Count Lymph % (Auto) [place] % (Auto) Lymph # [place] # Baso # Seg Neutrophils % Seg Neuts % (Manual) Lymphocytes % (Manual) Monocytes % (Manual) Eosinophils % (Manual) Basophils % (Manual) Nucleated RBC % Seg Neutrophils # Seg Neutrophils # Man Lymphocytes # (Manual) Monocytes # (Manual) Eosinophils # (Manual) Basophils # (Manual) PT INR Fibrinogen dRVVT Confirm Interp Factor V Activity POC ABG pH POC ABG pCO2 POC ABG pO2 ABG pO2 ABG HCO3 ABG Base Excess ABG Hemoglobin Oxyhemoglobin Sodium Potassium Chloride Carbon Dioxide 20 L BUN 116 H Creatinine 3.0 H Glucose 172 H POC Glucose 140 H 183 H Lactic Acid Calcium Ionized Calcium Phosphorus Magnesium Direct Bilirubin AST ALT Alkaline Phosphatase Lactate Dehydrogenase Troponin T C-Reactive Protein Total Protein 6.2 L Albumin 2.9 L Prealbumin Triglycerides Cholesterol LDL Cholesterol Direct HDL Cholesterol 25-OH Vitamin D Total PTH Intact Urine pH Urine WBC (Auto) Urine Creatinine Urine Total Protein Fluid Total Protein Vancomycin Trough Rheumatoid Factor Complement C4 Miscellaneous Test Crossmatch 09/13/16 09/14/16 09/14/16 23:23 04:06 04:07 WBC 29.4 H RBC Hgb 8.9 L Hct 27.3 L MCV 75 L MCH 24 L MCHC RDW 19.1 H Plt Count Lymph % (Auto) [place] % (Auto) Lymph # [place] # Baso # Seg Neutrophils % Seg Neuts % (Manual) 84.0 H Lymphocytes % (Manual) 6.0 L Monocytes % (Manual) 9.0 H Eosinophils % (Manual) Basophils % (Manual) Nucleated RBC % Seg Neutrophils # Seg Neutrophils # Man 24.7 H Lymphocytes # (Manual) Monocytes # (Manual) 2.6 H Eosinophils # (Manual) Basophils # (Manual) PT INR Fibrinogen dRVVT Confirm Interp Factor V Activity POC ABG pH 7.342 L POC ABG pCO2 POC ABG pO2 116 H ABG pO2 ABG HCO3 ABG Base Excess ABG Hemoglobin Oxyhemoglobin Sodium Potassium Chloride Carbon Dioxide BUN Creatinine Glucose POC Glucose 154 H Lactic Acid Calcium Ionized Calcium Phosphorus Magnesium Direct Bilirubin AST ALT Alkaline Phosphatase Lactate Dehydrogenase Troponin T C-Reactive Protein Total Protein Albumin Prealbumin Triglycerides Cholesterol LDL Cholesterol Direct HDL Cholesterol 25-OH Vitamin D Total PTH Intact Urine pH Urine WBC (Auto) Urine Creatinine Urine Total Protein Fluid Total Protein Vancomycin Trough Rheumatoid Factor Complement C4 Miscellaneous Test Crossmatch 09/14/16 09/14/16 09/14/16 04:07 05:29 12:19 WBC RBC Hgb Hct MCV MCH MCHC RDW Plt Count Lymph % (Auto) [place] % (Auto) Lymph # [place] # Baso # Seg Neutrophils % Seg Neuts % (Manual) Lymphocytes % (Manual) Monocytes % (Manual) Eosinophils % (Manual) Basophils % (Manual) Nucleated RBC % Seg Neutrophils # Seg Neutrophils # Man Lymphocytes # (Manual) Monocytes # (Manual) Eosinophils # (Manual) Basophils # (Manual) PT INR Fibrinogen dRVVT Confirm Interp Factor V Activity POC ABG pH POC ABG pCO2 POC ABG pO2 ABG pO2 ABG HCO3 ABG Base Excess ABG Hemoglobin Oxyhemoglobin Sodium 136 L Potassium Chloride Carbon Dioxide 18 L BUN 121 H Creatinine 2.8 H Glucose 214 H POC Glucose 239 H 181 H Lactic Acid Calcium Ionized Calcium Phosphorus Magnesium Direct Bilirubin AST ALT Alkaline Phosphatase Lactate Dehydrogenase Troponin T C-Reactive Protein Total Protein Albumin Prealbumin Triglycerides Cholesterol LDL Cholesterol Direct HDL Cholesterol 25-OH Vitamin D Total PTH Intact Urine pH Urine WBC (Auto) Urine Creatinine Urine Total Protein Fluid Total Protein Vancomycin Trough Rheumatoid Factor Complement C4 Miscellaneous Test Crossmatch 09/14/16 09/14/16 09/15/16 18:12 23:37 05:00 WBC 26.1 H RBC 3.05 L Hgb 7.2 L Hct 22.9 L MCV 75 L MCH 24 L MCHC RDW 19.0 H Plt Count Lymph % (Auto) [place] % (Auto) Lymph # [place] # Baso # Seg Neutrophils % Seg Neuts % (Manual) Lymphocytes % (Manual) Monocytes % (Manual) Eosinophils % (Manual) Basophils % (Manual) Nucleated RBC % Seg Neutrophils # Seg Neutrophils # Man Lymphocytes # (Manual) Monocytes # (Manual) Eosinophils # (Manual) Basophils # (Manual) PT INR Fibrinogen dRVVT Confirm Interp Factor V Activity POC ABG pH POC ABG pCO2 POC ABG pO2 ABG pO2 ABG HCO3 ABG Base Excess ABG Hemoglobin Oxyhemoglobin Sodium Potassium Chloride Carbon Dioxide BUN Creatinine Glucose POC Glucose 266 H 154 H Lactic Acid Calcium Ionized Calcium Phosphorus Magnesium Direct Bilirubin AST ALT Alkaline Phosphatase Lactate Dehydrogenase Troponin T C-Reactive Protein Total Protein Albumin Prealbumin Triglycerides Cholesterol LDL Cholesterol Direct HDL Cholesterol 25-OH Vitamin D Total PTH Intact Urine pH Urine WBC (Auto) Urine Creatinine Urine Total Protein Fluid Total Protein Vancomycin Trough Rheumatoid Factor Complement C4 Miscellaneous Test Crossmatch 09/15/16 09/15/16 09/15/16 05:00 05:17 12:45 WBC RBC Hgb Hct MCV MCH MCHC RDW Plt Count Lymph % (Auto) [place] % (Auto) Lymph # [place] # Baso # Seg Neutrophils % Seg Neuts % (Manual) Lymphocytes % (Manual) Monocytes % (Manual) Eosinophils % (Manual) Basophils % (Manual) Nucleated RBC % Seg Neutrophils # Seg Neutrophils # Man Lymphocytes # (Manual) Monocytes # (Manual) Eosinophils # (Manual) Basophils # (Manual) PT INR Fibrinogen dRVVT Confirm Interp Factor V Activity POC ABG pH POC ABG pCO2 POC ABG pO2 ABG pO2 ABG HCO3 ABG Base Excess ABG Hemoglobin Oxyhemoglobin Sodium Potassium 5.2 H Chloride Carbon Dioxide 18 L BUN 139 H Creatinine 3.7 H Glucose 227 H POC Glucose 226 H 244 H Lactic Acid Calcium 8.3 L Ionized Calcium Phosphorus Magnesium Direct Bilirubin AST ALT Alkaline Phosphatase Lactate Dehydrogenase Troponin T C-Reactive Protein Total Protein Albumin Prealbumin Triglycerides Cholesterol LDL Cholesterol Direct HDL Cholesterol 25-OH Vitamin D Total PTH Intact Urine pH Urine WBC (Auto) Urine Creatinine Urine Total Protein Fluid Total Protein Vancomycin Trough Rheumatoid Factor Complement C4 Miscellaneous Test Crossmatch 09/15/16 09/15/1617 14:32 17:33 23:35 WBC RBC Hgb Hct MCV MCH MCHC RDW Plt Count Lymph % (Auto) [place] % (Auto) Lymph # [place] # Baso # Seg Neutrophils % Seg Neuts % (Manual) Lymphocytes % (Manual) Monocytes % (Manual) Eosinophils % (Manual) Basophils % (Manual) Nucleated RBC % Seg Neutrophils # Seg Neutrophils # Man Lymphocytes # (Manual) Monocytes # (Manual) Eosinophils # (Manual) Basophils # (Manual) PT INR Fibrinogen dRVVT Confirm Interp Factor V Activity POC ABG pH POC ABG pCO2 27.7 L POC ABG pO2 120 H ABG pO2 ABG HCO3 ABG Base Excess ABG Hemoglobin Oxyhemoglobin Sodium Potassium Chloride Carbon Dioxide BUN Creatinine Glucose POC Glucose 232 H 167 H Lactic Acid Calcium Ionized Calcium Phosphorus Magnesium Direct Bilirubin AST ALT Alkaline Phosphatase Lactate Dehydrogenase Troponin T C-Reactive Protein Total Protein Albumin Prealbumin Triglycerides Cholesterol LDL Cholesterol Direct HDL Cholesterol 25-OH Vitamin D Total PTH Intact Urine pH Urine WBC (Auto) Urine Creatinine Urine Total Protein Fluid Total Protein Vancomycin Trough Rheumatoid Factor Complement C4 Miscellaneous Test Crossmatch 09/16/16 09/16/16 09/16/16 03:58 10:27 10:27 WBC 19.0 H RBC 2.77 L Hgb 6.5 L Hct 20.9 L MCV 76 L MCH 23 L MCHC RDW 19.3 H Plt Count Lymph % (Auto) 11.0 L [place] % (Auto) Lymph # [place] # 1.1 H Baso # Seg Neutrophils % 82.5 H Seg Neuts % (Manual) Lymphocytes % (Manual) Monocytes % (Manual) Eosinophils % (Manual) Basophils % (Manual) Nucleated RBC % Seg Neutrophils # 15.7 H Seg Neutrophils # Man Lymphocytes # (Manual) Monocytes # (Manual) Eosinophils # (Manual) Basophils # (Manual) PT INR Fibrinogen dRVVT Confirm Interp Factor V Activity POC ABG pH POC ABG pCO2 POC ABG pO2 ABG pO2 ABG HCO3 ABG Base Excess ABG Hemoglobin Oxyhemoglobin Sodium Potassium Chloride 109.3 H Carbon Dioxide 18 L BUN 139 H Creatinine 4.1 H Glucose 144 H POC Glucose 146 H Lactic Acid Calcium 8.1 L Ionized Calcium Phosphorus Magnesium Direct Bilirubin AST ALT Alkaline Phosphatase Lactate Dehydrogenase Troponin T C-Reactive Protein Total Protein Albumin Prealbumin Triglycerides Cholesterol LDL Cholesterol Direct HDL Cholesterol 25-OH Vitamin D Total PTH Intact Urine pH Urine WBC (Auto) Urine Creatinine Urine Total Protein Fluid Total Protein Vancomycin Trough Rheumatoid Factor Complement C4 Miscellaneous Test Crossmatch 09/16/16 09/16/16 09/16/16 12:04 12:10 13:55 WBC RBC Hgb Hct MCV MCH MCHC RDW Plt Count Lymph % (Auto) [place] % (Auto) Lymph # [place] # Baso # Seg Neutrophils % Seg Neuts % (Manual) Lymphocytes % (Manual) Monocytes % (Manual) Eosinophils % (Manual) Basophils % (Manual) Nucleated RBC % Seg Neutrophils # Seg Neutrophils # Man Lymphocytes # (Manual) Monocytes # (Manual) Eosinophils # (Manual) Basophils # (Manual) PT INR Fibrinogen dRVVT Confirm Interp Factor V Activity POC ABG pH POC ABG pCO2 32.9 L POC ABG pO2 ABG pO2 ABG HCO3 ABG Base Excess ABG Hemoglobin Oxyhemoglobin Sodium Potassium Chloride Carbon Dioxide BUN Creatinine Glucose POC Glucose 185 H Lactic Acid Calcium Ionized Calcium Phosphorus Magnesium Direct Bilirubin AST ALT Alkaline Phosphatase Lactate Dehydrogenase Troponin T C-Reactive Protein Total Protein Albumin Prealbumin Triglycerides Cholesterol LDL Cholesterol Direct HDL Cholesterol 25-OH Vitamin D Total PTH Intact Urine pH Urine WBC (Auto) Urine Creatinine Urine Total Protein Fluid Total Protein Vancomycin Trough Rheumatoid Factor Complement C4 Miscellaneous Test Crossmatch See Detail 09/16/16 09/16/16 09/16/16 17:55 19:19 23:48 WBC RBC Hgb Hct MCV MCH MCHC RDW Plt Count Lymph % (Auto) [place] % (Auto) Lymph # [place] # Baso # Seg Neutrophils % Seg Neuts % (Manual) Lymphocytes % (Manual) Monocytes % (Manual) Eosinophils % (Manual) Basophils % (Manual) Nucleated RBC % Seg Neutrophils # Seg Neutrophils # Man Lymphocytes # (Manual) Monocytes # (Manual) Eosinophils # (Manual) Basophils # (Manual) PT INR Fibrinogen dRVVT Confirm Interp Factor V Activity POC ABG pH POC ABG pCO2 POC ABG pO2 ABG pO2 ABG HCO3 ABG Base Excess ABG Hemoglobin Oxyhemoglobin Sodium Potassium Chloride Carbon Dioxide BUN Creatinine Glucose POC Glucose 222 H 107 H Lactic Acid Calcium Ionized Calcium Phosphorus Magnesium Direct Bilirubin AST ALT Alkaline Phosphatase Lactate Dehydrogenase Troponin T C-Reactive Protein Total Protein Albumin Prealbumin Triglycerides Cholesterol LDL Cholesterol Direct HDL Cholesterol 25-OH Vitamin D Total PTH Intact Urine pH Urine WBC (Auto) Urine Creatinine 47.4 H Urine Total Protein 16 H Fluid Total Protein Vancomycin Trough Rheumatoid Factor Complement C4 Miscellaneous Test Crossmatch 09/17/16 09/17/16 09/17/16 03:45 03:45 04:55 WBC 19.6 H RBC 3.41 L Hgb 8.5 L Hct 26.7 L MCV 78 L MCH 25 L MCHC RDW 19.9 H Plt Count Lymph % (Auto) 9.3 L [place] % (Auto) Lymph # [place] # 1.2 H Baso # Seg Neutrophils % 83.9 H Seg Neuts % (Manual) Lymphocytes % (Manual) Monocytes % (Manual) Eosinophils % (Manual) Basophils % (Manual) Nucleated RBC % Seg Neutrophils # 16.4 H Seg Neutrophils # Man Lymphocytes # (Manual) Monocytes # (Manual) Eosinophils # (Manual) Basophils # (Manual) PT INR Fibrinogen dRVVT Confirm Interp Factor V Activity POC ABG pH POC ABG pCO2 POC ABG pO2 ABG pO2 ABG HCO3 ABG Base Excess ABG Hemoglobin Oxyhemoglobin Sodium 146 H Potassium 5.1 H Chloride 110.9 H Carbon Dioxide 16 L BUN 146 H Creatinine 4.0 H Glucose 108 H POC Glucose 133 H Lactic Acid Calcium Ionized Calcium Phosphorus Magnesium 3.00 H Direct Bilirubin AST ALT Alkaline Phosphatase Lactate Dehydrogenase Troponin T C-Reactive Protein Total Protein Albumin Prealbumin Triglycerides Cholesterol LDL Cholesterol Direct HDL Cholesterol 25-OH Vitamin D Total PTH Intact Urine pH Urine WBC (Auto) Urine Creatinine Urine Total Protein Fluid Total Protein Vancomycin Trough Rheumatoid Factor Complement C4 Miscellaneous Test Crossmatch 09/17/16 09/17/16 09/17/16 11:15 17:33 23:47 WBC RBC Hgb Hct MCV MCH MCHC RDW Plt Count Lymph % (Auto) [place] % (Auto) Lymph # [place] # Baso # Seg Neutrophils % Seg Neuts % (Manual) Lymphocytes % (Manual) Monocytes % (Manual) Eosinophils % (Manual) Basophils % (Manual) Nucleated RBC % Seg Neutrophils # Seg Neutrophils # Man Lymphocytes # (Manual) Monocytes # (Manual) Eosinophils # (Manual) Basophils # (Manual) PT INR Fibrinogen dRVVT Confirm Interp Factor V Activity POC ABG pH POC ABG pCO2 POC ABG pO2 ABG pO2 ABG HCO3 ABG Base Excess ABG Hemoglobin Oxyhemoglobin Sodium Potassium Chloride Carbon Dioxide BUN Creatinine Glucose POC Glucose 176 H 246 H 148 H Lactic Acid Calcium Ionized Calcium Phosphorus Magnesium Direct Bilirubin AST ALT Alkaline Phosphatase Lactate Dehydrogenase Troponin T C-Reactive Protein Total Protein Albumin Prealbumin Triglycerides Cholesterol LDL Cholesterol Direct HDL Cholesterol 25-OH Vitamin D Total PTH Intact Urine pH Urine WBC (Auto) Urine Creatinine Urine Total Protein Fluid Total Protein Vancomycin Trough Rheumatoid Factor Complement C4 Miscellaneous Test Crossmatch 09/18/16 09/18/16 09/18/16 05:33 08:31 08:31 WBC 18.0 H RBC 3.17 L Hgb 9.0 L Hct 25.7 L MCV MCH MCHC 35 H RDW 20.4 H Plt Count Lymph % (Auto) [place] % (Auto) Lymph # [place] # Baso # Seg Neutrophils % Seg Neuts % (Manual) Lymphocytes % (Manual) Monocytes % (Manual) Eosinophils % (Manual) Basophils % (Manual) Nucleated RBC % Seg Neutrophils # Seg Neutrophils # Man Lymphocytes # (Manual) Monocytes # (Manual) Eosinophils # (Manual) Basophils # (Manual) PT INR Fibrinogen dRVVT Confirm Interp Factor V Activity POC ABG pH POC ABG pCO2 POC ABG pO2 ABG pO2 ABG HCO3 ABG Base Excess ABG Hemoglobin Oxyhemoglobin Sodium Potassium Chloride Carbon Dioxide 15 L BUN 124 H Creatinine 3.8 H Glucose POC Glucose 120 H Lactic Acid Calcium 8.1 L Ionized Calcium Phosphorus Magnesium Direct Bilirubin AST ALT Alkaline Phosphatase Lactate Dehydrogenase Troponin T C-Reactive Protein Total Protein Albumin Prealbumin Triglycerides Cholesterol LDL Cholesterol Direct HDL Cholesterol 25-OH Vitamin D Total PTH Intact Urine pH Urine WBC (Auto) Urine Creatinine Urine Total Protein Fluid Total Protein Vancomycin Trough Rheumatoid Factor Complement C4 Miscellaneous Test Crossmatch 09/18/16 09/18/16 09/18/16 12:03 15:34 17:50 WBC RBC Hgb Hct MCV MCH MCHC RDW Plt Count Lymph % (Auto) [place] % (Auto) Lymph # [place] # Baso # Seg Neutrophils % Seg Neuts % (Manual) Lymphocytes % (Manual) Monocytes % (Manual) Eosinophils % (Manual) Basophils % (Manual) Nucleated RBC % Seg Neutrophils # Seg Neutrophils # Man Lymphocytes # (Manual) Monocytes # (Manual) Eosinophils # (Manual) Basophils # (Manual) PT INR Fibrinogen dRVVT Confirm Interp Factor V Activity POC ABG pH POC ABG pCO2 25.7 L POC ABG pO2 66 L ABG pO2 ABG HCO3 ABG Base Excess ABG Hemoglobin Oxyhemoglobin Sodium Potassium Chloride Carbon Dioxide BUN Creatinine Glucose POC Glucose 156 H 220 H Lactic Acid Calcium Ionized Calcium Phosphorus Magnesium Direct Bilirubin AST ALT Alkaline Phosphatase Lactate Dehydrogenase Troponin T C-Reactive Protein Total Protein Albumin Prealbumin Triglycerides Cholesterol LDL Cholesterol Direct HDL Cholesterol 25-OH Vitamin D Total PTH Intact Urine pH Urine WBC (Auto) Urine Creatinine Urine Total Protein Fluid Total Protein Vancomycin Trough Rheumatoid Factor Complement C4 Miscellaneous Test Crossmatch 09/19/16 09/19/16 09/19/16 06:21 09:50 09:50 WBC 17.1 H RBC 3.49 L Hgb 9.0 L Hct 28.1 L MCV MCH 26 L MCHC RDW 20.8 H Plt Count Lymph % (Auto) 11.5 L [place] % (Auto) 7.5 H Lymph # [place] # 1.3 H Baso # Seg Neutrophils % 79.8 H Seg Neuts % (Manual) Lymphocytes % (Manual) Monocytes % (Manual) Eosinophils % (Manual) Basophils % (Manual) Nucleated RBC % Seg Neutrophils # 13.7 H Seg Neutrophils # Man Lymphocytes # (Manual) Monocytes # (Manual) Eosinophils # (Manual) Basophils # (Manual) PT INR Fibrinogen dRVVT Confirm Interp Factor V Activity POC ABG pH POC ABG pCO2 POC ABG pO2 ABG pO2 ABG HCO3 ABG Base Excess ABG Hemoglobin Oxyhemoglobin Sodium Potassium Chloride 108.6 H Carbon Dioxide 15 L BUN 125 H Creatinine 4.1 H Glucose 124 H POC Glucose 119 H Lactic Acid Calcium Ionized Calcium Phosphorus Magnesium Direct Bilirubin AST ALT Alkaline Phosphatase Lactate Dehydrogenase Troponin T C-Reactive Protein Total Protein Albumin Prealbumin Triglycerides Cholesterol LDL Cholesterol Direct HDL Cholesterol 25-OH Vitamin D Total PTH Intact Urine pH Urine WBC (Auto) Urine Creatinine Urine Total Protein Fluid Total Protein Vancomycin Trough Rheumatoid Factor Complement C4 Miscellaneous Test Crossmatch 09/19/16 09/19/16 09/19/16 11:25 17:53 23:36 WBC RBC Hgb Hct MCV MCH MCHC RDW Plt Count Lymph % (Auto) [place] % (Auto) Lymph # [place] # Baso # Seg Neutrophils % Seg Neuts % (Manual) Lymphocytes % (Manual) Monocytes % (Manual) Eosinophils % (Manual) Basophils % (Manual) Nucleated RBC % Seg Neutrophils # Seg Neutrophils # Man Lymphocytes # (Manual) Monocytes # (Manual) Eosinophils # (Manual) Basophils # (Manual) PT INR Fibrinogen dRVVT Confirm Interp Factor V Activity POC ABG pH POC ABG pCO2 POC ABG pO2 ABG pO2 ABG HCO3 ABG Base Excess ABG Hemoglobin Oxyhemoglobin Sodium Potassium Chloride Carbon Dioxide BUN Creatinine Glucose POC Glucose 160 H 245 H 121 H Lactic Acid Calcium Ionized Calcium Phosphorus Magnesium Direct Bilirubin AST ALT Alkaline Phosphatase Lactate Dehydrogenase Troponin T C-Reactive Protein Total Protein Albumin Prealbumin Triglycerides Cholesterol LDL Cholesterol Direct HDL Cholesterol 25-OH Vitamin D Total PTH Intact Urine pH Urine WBC (Auto) Urine Creatinine Urine Total Protein Fluid Total Protein Vancomycin Trough Rheumatoid Factor Complement C4 Miscellaneous Test Crossmatch 09/20/16 09/20/16 09/20/16 04:10 04:10 04:10 WBC 17.0 H RBC 3.21 L Hgb 8.2 L Hct 25.5 L MCV MCH 26 L MCHC RDW 20.9 H Plt Count Lymph % (Auto) [place] % (Auto) Lymph # [place] # Baso # Seg Neutrophils % Seg Neuts % (Manual) Lymphocytes % (Manual) Monocytes % (Manual) Eosinophils % (Manual) Basophils % (Manual) Nucleated RBC % Seg Neutrophils # Seg Neutrophils # Man Lymphocytes # (Manual) Monocytes # (Manual) Eosinophils # (Manual) Basophils # (Manual) PT INR Fibrinogen dRVVT Confirm Interp Factor V Activity POC ABG pH POC ABG pCO2 POC ABG pO2 ABG pO2 ABG HCO3 ABG Base Excess ABG Hemoglobin Oxyhemoglobin Sodium Potassium Chloride 111.0 H Carbon Dioxide 16 L BUN 129 H Creatinine 3.7 H Glucose 115 H POC Glucose Lactic Acid Calcium 8.2 L Ionized Calcium Phosphorus Magnesium Direct Bilirubin AST ALT Alkaline Phosphatase Lactate Dehydrogenase Troponin T C-Reactive Protein Total Protein Albumin Prealbumin Triglycerides 243 H Cholesterol LDL Cholesterol Direct HDL Cholesterol 25-OH Vitamin D Total PTH Intact Urine pH Urine WBC (Auto) Urine Creatinine Urine Total Protein Fluid Total Protein Vancomycin Trough Rheumatoid Factor Complement C4 Miscellaneous Test Crossmatch 09/20/16 09/20/16 09/20/16 05:40 11:52 16:50 WBC RBC Hgb Hct MCV MCH MCHC RDW Plt Count Lymph % (Auto) [place] % (Auto) Lymph # [place] # Baso # Seg Neutrophils % Seg Neuts % (Manual) Lymphocytes % (Manual) Monocytes % (Manual) Eosinophils % (Manual) Basophils % (Manual) Nucleated RBC % Seg Neutrophils # Seg Neutrophils # Man Lymphocytes # (Manual) Monocytes # (Manual) Eosinophils # (Manual) Basophils # (Manual) PT INR Fibrinogen dRVVT Confirm Interp Factor V Activity POC ABG pH POC ABG pCO2 POC ABG pO2 ABG pO2 ABG HCO3 ABG Base Excess ABG Hemoglobin Oxyhemoglobin Sodium Potassium Chloride Carbon Dioxide BUN Creatinine Glucose POC Glucose 131 H 183 H 236 H Lactic Acid Calcium Ionized Calcium Phosphorus Magnesium Direct Bilirubin AST ALT Alkaline Phosphatase Lactate Dehydrogenase Troponin T C-Reactive Protein Total Protein Albumin Prealbumin Triglycerides Cholesterol LDL Cholesterol Direct HDL Cholesterol 25-OH Vitamin D Total PTH Intact Urine pH Urine WBC (Auto) Urine Creatinine Urine Total Protein Fluid Total Protein Vancomycin Trough Rheumatoid Factor Complement C4 Miscellaneous Test Crossmatch 09/20/16 09/21/16 09/21/16 23:51 03:30 04:44 WBC RBC Hgb Hct MCV MCH MCHC RDW Plt Count Lymph % (Auto) [place] % (Auto) Lymph # [place] # Baso # Seg Neutrophils % Seg Neuts % (Manual) Lymphocytes % (Manual) Monocytes % (Manual) Eosinophils % (Manual) Basophils % (Manual) Nucleated RBC % Seg Neutrophils # Seg Neutrophils # Man Lymphocytes # (Manual) Monocytes # (Manual) Eosinophils # (Manual) Basophils # (Manual) PT INR Fibrinogen dRVVT Confirm Interp Factor V Activity POC ABG pH POC ABG pCO2 POC ABG pO2 ABG pO2 ABG HCO3 ABG Base Excess ABG Hemoglobin Oxyhemoglobin Sodium Potassium Chloride Carbon Dioxide BUN Creatinine Glucose POC Glucose 114 H 141 H Lactic Acid Calcium Ionized Calcium Phosphorus Magnesium 2.70 H Direct Bilirubin AST ALT Alkaline Phosphatase Lactate Dehydrogenase Troponin T C-Reactive Protein Total Protein Albumin Prealbumin Triglycerides Cholesterol LDL Cholesterol Direct HDL Cholesterol 25-OH Vitamin D Total PTH Intact Urine pH Urine WBC (Auto) Urine Creatinine Urine Total Protein Fluid Total Protein Vancomycin Trough Rheumatoid Factor Complement C4 Miscellaneous Test Crossmatch 09/21/16 09/21/16 09/21/16 07:45 07:45 10:01 WBC 13.8 H RBC 2.94 L Hgb 7.5 L Hct 23.5 L MCV MCH 26 L MCHC RDW 21.2 H Plt Count Lymph % (Auto) 6.9 L [place] % (Auto) 9.4 H Lymph # 0.9 L [place] # 1.3 H Baso # Seg Neutrophils % 83.2 H Seg Neuts % (Manual) Lymphocytes % (Manual) Monocytes % (Manual) Eosinophils % (Manual) Basophils % (Manual) Nucleated RBC % Seg Neutrophils # 11.5 H Seg Neutrophils # Man Lymphocytes # (Manual) Monocytes # (Manual) Eosinophils # (Manual) Basophils # (Manual) PT INR Fibrinogen dRVVT Confirm Interp Factor V Activity POC ABG pH 7.308 L POC ABG pCO2 31.9 L POC ABG pO2 148 H ABG pO2 ABG HCO3 ABG Base Excess ABG Hemoglobin Oxyhemoglobin Sodium 147 H Potassium Chloride 114.2 H Carbon Dioxide 15 L BUN 120 H Creatinine 3.9 H Glucose 156 H POC Glucose Lactic Acid Calcium 8.2 L Ionized Calcium Phosphorus Magnesium Direct Bilirubin AST ALT Alkaline Phosphatase Lactate Dehydrogenase Troponin T C-Reactive Protein Total Protein Albumin Prealbumin Triglycerides Cholesterol LDL Cholesterol Direct HDL Cholesterol 25-OH Vitamin D Total PTH Intact Urine pH Urine WBC (Auto) Urine Creatinine Urine Total Protein Fluid Total Protein Vancomycin Trough Rheumatoid Factor Complement C4 Miscellaneous Test Crossmatch 09/21/16 09/21/16 09/21/16 12:00 12:03 13:00 WBC RBC Hgb Hct MCV MCH MCHC RDW Plt Count Lymph % (Auto) [place] % (Auto) Lymph # [place] # Baso # Seg Neutrophils % Seg Neuts % (Manual) Lymphocytes % (Manual) Monocytes % (Manual) Eosinophils % (Manual) Basophils % (Manual) Nucleated RBC % Seg Neutrophils # Seg Neutrophils # Man Lymphocytes # (Manual) Monocytes # (Manual) Eosinophils # (Manual) Basophils # (Manual) PT INR Fibrinogen dRVVT Confirm Interp Factor V Activity POC ABG pH POC ABG pCO2 POC ABG pO2 ABG pO2 ABG HCO3 ABG Base Excess ABG Hemoglobin Oxyhemoglobin Sodium Potassium Chloride Carbon Dioxide BUN Creatinine Glucose POC Glucose 163 H Lactic Acid Calcium Ionized Calcium Phosphorus Magnesium Direct Bilirubin AST ALT Alkaline Phosphatase Lactate Dehydrogenase Troponin T C-Reactive Protein Total Protein Albumin Prealbumin Triglycerides Cholesterol LDL Cholesterol Direct HDL Cholesterol 25-OH Vitamin D Total PTH Intact Urine pH Urine WBC (Auto) Urine Creatinine 54.8 H Urine Total Protein Fluid Total Protein Vancomycin Trough 2.3 L Rheumatoid Factor Complement C4 Miscellaneous Test Crossmatch 09/21/16 09/21/16 09/22/16 16:51 23:17 06:27 WBC RBC Hgb Hct MCV MCH MCHC RDW Plt Count Lymph % (Auto) [place] % (Auto) Lymph # [place] # Baso # Seg Neutrophils % Seg Neuts % (Manual) Lymphocytes % (Manual) Monocytes % (Manual) Eosinophils % (Manual) Basophils % (Manual) Nucleated RBC % Seg Neutrophils # Seg Neutrophils # Man Lymphocytes # (Manual) Monocytes # (Manual) Eosinophils # (Manual) Basophils # (Manual) PT INR Fibrinogen dRVVT Confirm Interp Factor V Activity POC ABG pH POC ABG pCO2 POC ABG pO2 ABG pO2 ABG HCO3 ABG Base Excess ABG Hemoglobin Oxyhemoglobin Sodium Potassium Chloride Carbon Dioxide BUN Creatinine Glucose POC Glucose 206 H 114 H 115 H Lactic Acid Calcium Ionized Calcium Phosphorus Magnesium Direct Bilirubin AST ALT Alkaline Phosphatase Lactate Dehydrogenase Troponin T C-Reactive Protein Total Protein Albumin Prealbumin Triglycerides Cholesterol LDL Cholesterol Direct HDL Cholesterol 25-OH Vitamin D Total PTH Intact Urine pH Urine WBC (Auto) Urine Creatinine Urine Total Protein Fluid Total Protein Vancomycin Trough Rheumatoid Factor Complement C4 Miscellaneous Test Crossmatch 09/22/16 09/22/16 09/22/16 07:50 07:50 12:00 WBC 17.8 H RBC 3.04 L Hgb 8.0 L Hct 24.7 L MCV MCH 26 L MCHC RDW 21.6 H Plt Count Lymph % (Auto) [place] % (Auto) Lymph # [place] # Baso # Seg Neutrophils % Seg Neuts % (Manual) Lymphocytes % (Manual) Monocytes % (Manual) Eosinophils % (Manual) Basophils % (Manual) Nucleated RBC % Seg Neutrophils # Seg Neutrophils # Man Lymphocytes # (Manual) Monocytes # (Manual) Eosinophils # (Manual) Basophils # (Manual) PT INR Fibrinogen dRVVT Confirm Interp Factor V Activity POC ABG pH POC ABG pCO2 POC ABG pO2 ABG pO2 ABG HCO3 ABG Base Excess ABG Hemoglobin Oxyhemoglobin Sodium 150 H Potassium Chloride 118.2 H Carbon Dioxide 14 L BUN 111 H Creatinine 3.7 H Glucose 157 H POC Glucose 183 H Lactic Acid Calcium Ionized Calcium Phosphorus Magnesium Direct Bilirubin AST ALT Alkaline Phosphatase Lactate Dehydrogenase Troponin T C-Reactive Protein Total Protein Albumin Prealbumin Triglycerides Cholesterol LDL Cholesterol Direct HDL Cholesterol 25-OH Vitamin D Total PTH Intact Urine pH Urine WBC (Auto) Urine Creatinine Urine Total Protein Fluid Total Protein Vancomycin Trough Rheumatoid Factor Complement C4 Miscellaneous Test Crossmatch 09/22/16 09/22/16 09/23/16 17:29 23:10 05:00 WBC 19.2 H RBC 3.13 L Hgb 8.0 L Hct 25.2 L MCV MCH 26 L MCHC RDW 22.1 H Plt Count Lymph % (Auto) [place] % (Auto) Lymph # [place] # Baso # Seg Neutrophils % Seg Neuts % (Manual) 92.0 H Lymphocytes % (Manual) 3.0 L Monocytes % (Manual) Eosinophils % (Manual) Basophils % (Manual) Nucleated RBC % Seg Neutrophils # Seg Neutrophils # Man 17.7 H Lymphocytes # (Manual) 0.6 L Monocytes # (Manual) Eosinophils # (Manual) Basophils # (Manual) PT INR Fibrinogen dRVVT Confirm Interp Factor V Activity POC ABG pH POC ABG pCO2 POC ABG pO2 ABG pO2 ABG HCO3 ABG Base Excess ABG Hemoglobin Oxyhemoglobin Sodium Potassium Chloride Carbon Dioxide BUN Creatinine Glucose POC Glucose 197 H 169 H Lactic Acid Calcium Ionized Calcium Phosphorus Magnesium Direct Bilirubin AST ALT Alkaline Phosphatase Lactate Dehydrogenase Troponin T C-Reactive Protein Total Protein Albumin Prealbumin Triglycerides Cholesterol LDL Cholesterol Direct HDL Cholesterol 25-OH Vitamin D Total PTH Intact Urine pH Urine WBC (Auto) Urine Creatinine Urine Total Protein Fluid Total Protein Vancomycin Trough Rheumatoid Factor Complement C4 Miscellaneous Test Crossmatch 09/23/16 09/23/16 09/23/16 05:00 05:00 05:10 WBC RBC Hgb Hct MCV MCH MCHC RDW Plt Count Lymph % (Auto) [place] % (Auto) Lymph # [place] # Baso # Seg Neutrophils % Seg Neuts % (Manual) Lymphocytes % (Manual) Monocytes % (Manual) Eosinophils % (Manual) Basophils % (Manual) Nucleated RBC % Seg Neutrophils # Seg Neutrophils # Man Lymphocytes # (Manual) Monocytes # (Manual) Eosinophils # (Manual) Basophils # (Manual) PT INR Fibrinogen dRVVT Confirm Interp Factor V Activity POC ABG pH POC ABG pCO2 POC ABG pO2 ABG pO2 ABG HCO3 ABG Base Excess ABG Hemoglobin Oxyhemoglobin Sodium 147 H Potassium 3.2 L Chloride 115.7 H Carbon Dioxide 13 L BUN 111 H Creatinine 3.8 H Glucose 194 H POC Glucose 188 H Lactic Acid Calcium 7.3 L D Ionized Calcium Phosphorus Magnesium Direct Bilirubin AST ALT Alkaline Phosphatase Lactate Dehydrogenase Troponin T C-Reactive Protein 3.20 H Total Protein Albumin Prealbumin Triglycerides Cholesterol LDL Cholesterol Direct HDL Cholesterol 25-OH Vitamin D Total PTH Intact Urine pH Urine WBC (Auto) Urine Creatinine Urine Total Protein Fluid Total Protein Vancomycin Trough Rheumatoid Factor Complement C4 Miscellaneous Test Crossmatch 09/23/16 09/23/16 09/23/16 11:37 12:29 18:01 WBC RBC Hgb Hct MCV MCH MCHC RDW Plt Count Lymph % (Auto) [place] % (Auto) Lymph # [place] # Baso # Seg Neutrophils % Seg Neuts % (Manual) Lymphocytes % (Manual) Monocytes % (Manual) Eosinophils % (Manual) Basophils % (Manual) Nucleated RBC % Seg Neutrophils # Seg Neutrophils # Man Lymphocytes # (Manual) Monocytes # (Manual) Eosinophils # (Manual) Basophils # (Manual) PT INR Fibrinogen dRVVT Confirm Interp Factor V Activity POC ABG pH POC ABG pCO2 18.9 L POC ABG pO2 143 H ABG pO2 ABG HCO3 ABG Base Excess ABG Hemoglobin Oxyhemoglobin Sodium Potassium Chloride Carbon Dioxide BUN Creatinine Glucose POC Glucose 153 H 108 H Lactic Acid Calcium Ionized Calcium Phosphorus Magnesium Direct Bilirubin AST ALT Alkaline Phosphatase Lactate Dehydrogenase Troponin T C-Reactive Protein Total Protein Albumin Prealbumin Triglycerides Cholesterol LDL Cholesterol Direct HDL Cholesterol 25-OH Vitamin D Total PTH Intact Urine pH Urine WBC (Auto) Urine Creatinine Urine Total Protein Fluid Total Protein Vancomycin Trough Rheumatoid Factor Complement C4 Miscellaneous Test Crossmatch 09/23/16 09/23/16 09/24/16 21:19 23:43 05:16 WBC RBC Hgb Hct MCV MCH MCHC RDW Plt Count Lymph % (Auto) [place] % (Auto) Lymph # [place] # Baso # Seg Neutrophils % Seg Neuts % (Manual) Lymphocytes % (Manual) Monocytes % (Manual) Eosinophils % (Manual) Basophils % (Manual) Nucleated RBC % Seg Neutrophils # Seg Neutrophils # Man Lymphocytes # (Manual) Monocytes # (Manual) Eosinophils # (Manual) Basophils # (Manual) PT INR Fibrinogen dRVVT Confirm Interp Factor V Activity POC ABG pH POC ABG pCO2 17.3 L POC ABG pO2 112 H ABG pO2 ABG HCO3 ABG Base Excess ABG Hemoglobin Oxyhemoglobin Sodium Potassium Chloride Carbon Dioxide BUN Creatinine Glucose POC Glucose 143 H 164 H Lactic Acid Calcium Ionized Calcium Phosphorus Magnesium Direct Bilirubin AST ALT Alkaline Phosphatase Lactate Dehydrogenase Troponin T C-Reactive Protein Total Protein Albumin Prealbumin Triglycerides Cholesterol LDL Cholesterol Direct HDL Cholesterol 25-OH Vitamin D Total PTH Intact Urine pH Urine WBC (Auto) Urine Creatinine Urine Total Protein Fluid Total Protein Vancomycin Trough Rheumatoid Factor Complement C4 Miscellaneous Test Crossmatch 09/24/16 09/24/16 09/24/16 05:21 11:58 17:06 WBC RBC Hgb Hct MCV MCH MCHC RDW Plt Count Lymph % (Auto) [place] % (Auto) Lymph # [place] # Baso # Seg Neutrophils % Seg Neuts % (Manual) Lymphocytes % (Manual) Monocytes % (Manual) Eosinophils % (Manual) Basophils % (Manual) Nucleated RBC % Seg Neutrophils # Seg Neutrophils # Man Lymphocytes # (Manual) Monocytes # (Manual) Eosinophils # (Manual) Basophils # (Manual) PT INR Fibrinogen dRVVT Confirm Interp Factor V Activity POC ABG pH POC ABG pCO2 POC ABG pO2 ABG pO2 ABG HCO3 ABG Base Excess ABG Hemoglobin Oxyhemoglobin Sodium Potassium Chloride Carbon Dioxide 10 L BUN 103 H Creatinine 4.3 H Glucose 163 H POC Glucose 173 H 167 H Lactic Acid Calcium 6.5 L Ionized Calcium Phosphorus Magnesium Direct Bilirubin AST ALT Alkaline Phosphatase Lactate Dehydrogenase Troponin T C-Reactive Protein Total Protein Albumin Prealbumin Triglycerides Cholesterol LDL Cholesterol Direct HDL Cholesterol 25-OH Vitamin D Total PTH Intact Urine pH Urine WBC (Auto) Urine Creatinine Urine Total Protein Fluid Total Protein Vancomycin Trough Rheumatoid Factor Complement C4 Miscellaneous Test Crossmatch 09/24/16 09/24/16 09/24/16 20:15 21:02 23:48 WBC RBC Hgb Hct MCV MCH MCHC RDW Plt Count Lymph % (Auto) [place] % (Auto) Lymph # [place] # Baso # Seg Neutrophils % Seg Neuts % (Manual) Lymphocytes % (Manual) Monocytes % (Manual) Eosinophils % (Manual) Basophils % (Manual) Nucleated RBC % Seg Neutrophils # Seg Neutrophils # Man Lymphocytes # (Manual) Monocytes # (Manual) Eosinophils # (Manual) Basophils # (Manual) PT INR Fibrinogen dRVVT Confirm Interp Factor V Activity POC ABG pH 7.288 L POC ABG pCO2 30.2 L 21.5 L POC ABG pO2 32 L 39 L ABG pO2 ABG HCO3 ABG Base Excess ABG Hemoglobin Oxyhemoglobin Sodium Potassium Chloride Carbon Dioxide BUN Creatinine Glucose POC Glucose 109 H Lactic Acid Calcium Ionized Calcium Phosphorus Magnesium Direct Bilirubin AST ALT Alkaline Phosphatase Lactate Dehydrogenase Troponin T C-Reactive Protein Total Protein Albumin Prealbumin Triglycerides Cholesterol LDL Cholesterol Direct HDL Cholesterol 25-OH Vitamin D Total PTH Intact Urine pH Urine WBC (Auto) Urine Creatinine Urine Total Protein Fluid Total Protein Vancomycin Trough Rheumatoid Factor Complement C4 Miscellaneous Test Crossmatch 09/25/16 09/25/16 09/25/16 04:20 04:20 04:20 WBC RBC 2.58 L Hgb 7.0 L Hct 21.0 L MCV MCH 27 L MCHC RDW 23.8 H Plt Count Lymph % (Auto) [place] % (Auto) Lymph # [place] # Baso # Seg Neutrophils % Seg Neuts % (Manual) Lymphocytes % (Manual) 12.0 L Monocytes % (Manual) Eosinophils % (Manual) 7.0 H Basophils % (Manual) 2.0 H Nucleated RBC % Seg Neutrophils # Seg Neutrophils # Man Lymphocytes # (Manual) 0.9 L Monocytes # (Manual) Eosinophils # (Manual) 0.5 H Basophils # (Manual) PT INR Fibrinogen dRVVT Confirm Interp Factor V Activity POC ABG pH POC ABG pCO2 POC ABG pO2 ABG pO2 ABG HCO3 ABG Base Excess ABG Hemoglobin Oxyhemoglobin Sodium Potassium Chloride Carbon Dioxide 15 L BUN 72 H Creatinine 3.8 H Glucose POC Glucose Lactic Acid Calcium 6.0 L Ionized Calcium Phosphorus 4.60 H Magnesium 1.60 L Direct Bilirubin AST ALT Alkaline Phosphatase Lactate Dehydrogenase Troponin T C-Reactive Protein Total Protein Albumin Prealbumin Triglycerides Cholesterol LDL Cholesterol Direct HDL Cholesterol 25-OH Vitamin D Total PTH Intact Urine pH Urine WBC (Auto) Urine Creatinine Urine Total Protein Fluid Total Protein Vancomycin Trough Rheumatoid Factor Complement C4 Miscellaneous Test Crossmatch 09/25/16 09/25/16 09/25/16 04:57 08:02 10:30 WBC RBC Hgb Hct MCV MCH MCHC RDW Plt Count Lymph % (Auto) [place] % (Auto) Lymph # [place] # Baso # Seg Neutrophils % Seg Neuts % (Manual) Lymphocytes % (Manual) Monocytes % (Manual) Eosinophils % (Manual) Basophils % (Manual) Nucleated RBC % Seg Neutrophils # Seg Neutrophils # Man Lymphocytes # (Manual) Monocytes # (Manual) Eosinophils # (Manual) Basophils # (Manual) PT INR Fibrinogen dRVVT Confirm Interp Factor V Activity POC ABG pH POC ABG pCO2 24.7 L POC ABG pO2 152 H ABG pO2 ABG HCO3 ABG Base Excess ABG Hemoglobin Oxyhemoglobin Sodium Potassium Chloride Carbon Dioxide BUN Creatinine Glucose POC Glucose 113 H Lactic Acid Calcium Ionized Calcium Phosphorus Magnesium Direct Bilirubin AST ALT Alkaline Phosphatase Lactate Dehydrogenase Troponin T C-Reactive Protein Total Protein Albumin Prealbumin Triglycerides Cholesterol LDL Cholesterol Direct HDL Cholesterol 25-OH Vitamin D Total PTH Intact Urine pH Urine WBC (Auto) Urine Creatinine Urine Total Protein Fluid Total Protein Vancomycin Trough Rheumatoid Factor Complement C4 Miscellaneous Test Crossmatch See Detail 09/25/16 09/25/16 09/25/16 12:05 17:44 23:47 WBC RBC Hgb Hct MCV MCH MCHC RDW Plt Count Lymph % (Auto) [place] % (Auto) Lymph # [place] # Baso # Seg Neutrophils % Seg Neuts % (Manual) Lymphocytes % (Manual) Monocytes % (Manual) Eosinophils % (Manual) Basophils % (Manual) Nucleated RBC % Seg Neutrophils # Seg Neutrophils # Man Lymphocytes # (Manual) Monocytes # (Manual) Eosinophils # (Manual) Basophils # (Manual) PT INR Fibrinogen dRVVT Confirm Interp Factor V Activity POC ABG pH POC ABG pCO2 POC ABG pO2 ABG pO2 ABG HCO3 ABG Base Excess ABG Hemoglobin Oxyhemoglobin Sodium Potassium Chloride Carbon Dioxide BUN Creatinine Glucose POC Glucose 117 H 119 H 150 H Lactic Acid Calcium Ionized Calcium Phosphorus Magnesium Direct Bilirubin AST ALT Alkaline Phosphatase Lactate Dehydrogenase Troponin T C-Reactive Protein Total Protein Albumin Prealbumin Triglycerides Cholesterol LDL Cholesterol Direct HDL Cholesterol 25-OH Vitamin D Total PTH Intact Urine pH Urine WBC (Auto) Urine Creatinine Urine Total Protein Fluid Total Protein Vancomycin Trough Rheumatoid Factor Complement C4 Miscellaneous Test Crossmatch 09/26/16 09/26/16 09/26/16 04:25 04:25 04:25 WBC RBC 2.65 L Hgb 7.4 L Hct 21.6 L MCV MCH MCHC RDW 22.5 H Plt Count Lymph % (Auto) [place] % (Auto) Lymph # [place] # Baso # Seg Neutrophils % Seg Neuts % (Manual) Lymphocytes % (Manual) 6.0 L Monocytes % (Manual) Eosinophils % (Manual) 11.0 H Basophils % (Manual) Nucleated RBC % Seg Neutrophils # Seg Neutrophils # Man Lymphocytes # (Manual) 0.4 L Monocytes # (Manual) Eosinophils # (Manual) 0.6 H Basophils # (Manual) PT INR Fibrinogen dRVVT Confirm Interp Factor V Activity POC ABG pH POC ABG pCO2 POC ABG pO2 ABG pO2 ABG HCO3 ABG Base Excess ABG Hemoglobin Oxyhemoglobin Sodium Potassium Chloride 97.0 L Carbon Dioxide 19 L BUN 43 H Creatinine 2.6 H Glucose 130 H POC Glucose Lactic Acid 4.40 H* Calcium 6.7 L Ionized Calcium Phosphorus Magnesium Direct Bilirubin AST ALT Alkaline Phosphatase Lactate Dehydrogenase Troponin T C-Reactive Protein Total Protein Albumin Prealbumin Triglycerides Cholesterol LDL Cholesterol Direct HDL Cholesterol 25-OH Vitamin D Total PTH Intact Urine pH Urine WBC (Auto) Urine Creatinine Urine Total Protein Fluid Total Protein Vancomycin Trough Rheumatoid Factor Complement C4 Miscellaneous Test Crossmatch 09/26/16 09/26/16 09/26/16 05:20 11:44 12:12 WBC RBC Hgb Hct MCV MCH MCHC RDW Plt Count Lymph % (Auto) [place] % (Auto) Lymph # [place] # Baso # Seg Neutrophils % Seg Neuts % (Manual) Lymphocytes % (Manual) Monocytes % (Manual) Eosinophils % (Manual) Basophils % (Manual) Nucleated RBC % Seg Neutrophils # Seg Neutrophils # Man Lymphocytes # (Manual) Monocytes # (Manual) Eosinophils # (Manual) Basophils # (Manual) PT INR Fibrinogen dRVVT Confirm Interp Factor V Activity POC ABG pH POC ABG pCO2 27.0 L POC ABG pO2 69 L ABG pO2 ABG HCO3 ABG Base Excess ABG Hemoglobin Oxyhemoglobin Sodium Potassium Chloride Carbon Dioxide BUN Creatinine Glucose POC Glucose 121 H 128 H Lactic Acid Calcium Ionized Calcium Phosphorus Magnesium Direct Bilirubin AST ALT Alkaline Phosphatase Lactate Dehydrogenase Troponin T C-Reactive Protein Total Protein Albumin Prealbumin Triglycerides Cholesterol LDL Cholesterol Direct HDL Cholesterol 25-OH Vitamin D Total PTH Intact Urine pH Urine WBC (Auto) Urine Creatinine Urine Total Protein Fluid Total Protein Vancomycin Trough Rheumatoid Factor Complement C4 Miscellaneous Test Crossmatch 09/26/16 09/26/16 09/27/16 18:31 23:40 08:20 WBC RBC Hgb Hct MCV MCH MCHC RDW Plt Count Lymph % (Auto) [place] % (Auto) Lymph # [place] # Baso # Seg Neutrophils % Seg Neuts % (Manual) Lymphocytes % (Manual) Monocytes % (Manual) Eosinophils % (Manual) Basophils % (Manual) Nucleated RBC % Seg Neutrophils # Seg Neutrophils # Man Lymphocytes # (Manual) Monocytes # (Manual) Eosinophils # (Manual) Basophils # (Manual) PT INR Fibrinogen dRVVT Confirm Interp Factor V Activity POC ABG pH POC ABG pCO2 POC ABG pO2 ABG pO2 ABG HCO3 ABG Base Excess ABG Hemoglobin Oxyhemoglobin Sodium Potassium Chloride Carbon Dioxide BUN Creatinine Glucose POC Glucose 120 H 133 H Lactic Acid 4.10 H* Calcium Ionized Calcium Phosphorus Magnesium Direct Bilirubin AST ALT Alkaline Phosphatase Lactate Dehydrogenase Troponin T C-Reactive Protein Total Protein Albumin Prealbumin Triglycerides Cholesterol LDL Cholesterol Direct HDL Cholesterol 25-OH Vitamin D Total PTH Intact Urine pH Urine WBC (Auto) Urine Creatinine Urine Total Protein Fluid Total Protein Vancomycin Trough Rheumatoid Factor Complement C4 Miscellaneous Test Crossmatch 09/27/16 09/27/16 09/27/16 11:23 15:00 18:15 WBC RBC Hgb Hct MCV MCH MCHC RDW Plt Count Lymph % (Auto) [place] % (Auto) Lymph # [place] # Baso # Seg Neutrophils % Seg Neuts % (Manual) Lymphocytes % (Manual) Monocytes % (Manual) Eosinophils % (Manual) Basophils % (Manual) Nucleated RBC % Seg Neutrophils # Seg Neutrophils # Man Lymphocytes # (Manual) Monocytes # (Manual) Eosinophils # (Manual) Basophils # (Manual) PT INR Fibrinogen dRVVT Confirm Interp Factor V Activity POC ABG pH 7.459 H POC ABG pCO2 27.1 L POC ABG pO2 140 H ABG pO2 ABG HCO3 ABG Base Excess ABG Hemoglobin Oxyhemoglobin Sodium Potassium Chloride Carbon Dioxide BUN Creatinine Glucose POC Glucose 114 H 127 H Lactic Acid Calcium Ionized Calcium Phosphorus Magnesium Direct Bilirubin AST ALT Alkaline Phosphatase Lactate Dehydrogenase Troponin T C-Reactive Protein Total Protein Albumin Prealbumin Triglycerides Cholesterol LDL Cholesterol Direct HDL Cholesterol 25-OH Vitamin D Total PTH Intact Urine pH Urine WBC (Auto) Urine Creatinine Urine Total Protein Fluid Total Protein Vancomycin Trough Rheumatoid Factor Complement C4 Miscellaneous Test Crossmatch 09/27/16 09/27/16 09/28/16 Unknown Unknown 03:45 WBC RBC 2.49 L Hgb 6.8 L Hct 20.7 L MCV MCH 27 L MCHC RDW 22.1 H Plt Count Lymph % (Auto) [place] % (Auto) Lymph # [place] # Baso # Seg Neutrophils % Seg Neuts % (Manual) 32.0 L Lymphocytes % (Manual) 12.0 L Monocytes % (Manual) 11.0 H Eosinophils % (Manual) 10.0 H Basophils % (Manual) Nucleated RBC % Seg Neutrophils # Seg Neutrophils # Man Lymphocytes # (Manual) 1.0 L Monocytes # (Manual) 0.9 H Eosinophils # (Manual) 0.8 H Basophils # (Manual) PT INR Fibrinogen dRVVT Confirm Interp Factor V Activity POC ABG pH POC ABG pCO2 POC ABG pO2 ABG pO2 ABG HCO3 ABG Base Excess ABG Hemoglobin Oxyhemoglobin Sodium 135 L 135 L Potassium 3.5 L Chloride 93.6 L 94.4 L Carbon Dioxide 17 L 21 L BUN 45 H 28 H Creatinine 3.3 H 2.5 H Glucose 106 H POC Glucose Lactic Acid Calcium 7.3 L 7.1 L Ionized Calcium Phosphorus Magnesium Direct Bilirubin AST ALT Alkaline Phosphatase Lactate Dehydrogenase Troponin T C-Reactive Protein Total Protein Albumin Prealbumin Triglycerides Cholesterol LDL Cholesterol Direct HDL Cholesterol 25-OH Vitamin D Total PTH Intact Urine pH Urine WBC (Auto) Urine Creatinine Urine Total Protein Fluid Total Protein Vancomycin Trough Rheumatoid Factor Complement C4 Miscellaneous Test Crossmatch 09/28/16 09/28/16 09/28/16 03:45 07:25 11:58 WBC 13.3 H RBC 3.01 L Hgb 8.4 L Hct 25.0 L MCV MCH MCHC RDW 20.5 H Plt Count 128 L Lymph % (Auto) [place] % (Auto) Lymph # [place] # Baso # Seg Neutrophils % Seg Neuts % (Manual) Lymphocytes % (Manual) 7.0 L Monocytes % (Manual) Eosinophils % (Manual) 6.0 H Basophils % (Manual) Nucleated RBC % Seg Neutrophils # Seg Neutrophils # Man Lymphocytes # (Manual) 0.9 L Monocytes # (Manual) Eosinophils # (Manual) 0.8 H Basophils # (Manual) PT INR Fibrinogen dRVVT Confirm Interp Factor V Activity POC ABG pH POC ABG pCO2 POC ABG pO2 ABG pO2 ABG HCO3 ABG Base Excess ABG Hemoglobin Oxyhemoglobin Sodium Potassium Chloride Carbon Dioxide BUN Creatinine Glucose POC Glucose 121 H Lactic Acid 4.50 H* Calcium Ionized Calcium Phosphorus Magnesium Direct Bilirubin AST ALT Alkaline Phosphatase Lactate Dehydrogenase Troponin T C-Reactive Protein Total Protein Albumin Prealbumin Triglycerides Cholesterol LDL Cholesterol Direct HDL Cholesterol 25-OH Vitamin D Total PTH Intact Urine pH Urine WBC (Auto) Urine Creatinine Urine Total Protein Fluid Total Protein Vancomycin Trough Rheumatoid Factor Complement C4 Miscellaneous Test Crossmatch 09/29/16 09/29/16 09/29/16 06:45 06:45 06:45 WBC 14.9 H RBC 2.74 L Hgb 7.6 L Hct 23.2 L MCV MCH MCHC RDW 20.5 H Plt Count 81 L Lymph % (Auto) [place] % (Auto) Lymph # [place] # Baso # Seg Neutrophils % Seg Neuts % (Manual) 81.0 H Lymphocytes % (Manual) 4.0 L Monocytes % (Manual) Eosinophils % (Manual) Basophils % (Manual) Nucleated RBC % Seg Neutrophils # Seg Neutrophils # Man 12.1 H Lymphocytes # (Manual) 0.6 L Monocytes # (Manual) Eosinophils # (Manual) Basophils # (Manual) PT INR Fibrinogen dRVVT Confirm Interp Factor V Activity POC ABG pH POC ABG pCO2 POC ABG pO2 ABG pO2 ABG HCO3 ABG Base Excess ABG Hemoglobin Oxyhemoglobin Sodium 133 L Potassium 3.4 L Chloride 92.5 L Carbon Dioxide 21 L BUN 33 H Creatinine 3.0 H Glucose POC Glucose Lactic Acid Calcium 6.6 L Ionized Calcium Phosphorus Magnesium 1.40 L Direct Bilirubin 0.9 H AST ALT Alkaline Phosphatase Lactate Dehydrogenase Troponin T C-Reactive Protein Total Protein 4.3 L Albumin 1.3 L Prealbumin Triglycerides Cholesterol LDL Cholesterol Direct HDL Cholesterol 25-OH Vitamin D Total PTH Intact Urine pH Urine WBC (Auto) Urine Creatinine Urine Total Protein Fluid Total Protein Vancomycin Trough Rheumatoid Factor Complement C4 Miscellaneous Test Crossmatch 09/29/16 09/29/16 09/30/16 17:52 20:12 00:07 WBC RBC Hgb Hct MCV MCH MCHC RDW Plt Count Lymph % (Auto) [place] % (Auto) Lymph # [place] # Baso # Seg Neutrophils % Seg Neuts % (Manual) Lymphocytes % (Manual) Monocytes % (Manual) Eosinophils % (Manual) Basophils % (Manual) Nucleated RBC % Seg Neutrophils # Seg Neutrophils # Man Lymphocytes # (Manual) Monocytes # (Manual) Eosinophils # (Manual) Basophils # (Manual) PT INR Fibrinogen dRVVT Confirm Interp Factor V Activity POC ABG pH POC ABG pCO2 POC ABG pO2 ABG pO2 ABG HCO3 ABG Base Excess ABG Hemoglobin Oxyhemoglobin Sodium Potassium Chloride Carbon Dioxide BUN Creatinine Glucose POC Glucose 50 L 51 L Lactic Acid Calcium Ionized Calcium Phosphorus Magnesium Direct Bilirubin AST ALT Alkaline Phosphatase Lactate Dehydrogenase Troponin T 0.204 H* C-Reactive Protein Total Protein Albumin Prealbumin Triglycerides Cholesterol 31 L LDL Cholesterol Direct 4 L HDL Cholesterol 3 L 25-OH Vitamin D Total PTH Intact Urine pH Urine WBC (Auto) Urine Creatinine Urine Total Protein Fluid Total Protein Vancomycin Trough Rheumatoid Factor Complement C4 Miscellaneous Test Crossmatch 09/30/16 09/30/16 09/30/16 01:30 05:15 06:10 WBC RBC Hgb Hct MCV MCH MCHC RDW Plt Count Lymph % (Auto) [place] % (Auto) Lymph # [place] # Baso # Seg Neutrophils % Seg Neuts % (Manual) Lymphocytes % (Manual) Monocytes % (Manual) Eosinophils % (Manual) Basophils % (Manual) Nucleated RBC % Seg Neutrophils # Seg Neutrophils # Man Lymphocytes # (Manual) Monocytes # (Manual) Eosinophils # (Manual) Basophils # (Manual) PT INR Fibrinogen dRVVT Confirm Interp Factor V Activity POC ABG pH POC ABG pCO2 POC ABG pO2 ABG pO2 ABG HCO3 ABG Base Excess ABG Hemoglobin Oxyhemoglobin Sodium 133 L Potassium 3.2 L Chloride 93.2 L Carbon Dioxide 19 L BUN 36 H Creatinine 3.2 H Glucose 104 H POC Glucose 167 H 146 H Lactic Acid Calcium 6.4 L Ionized Calcium Phosphorus Magnesium 1.60 L Direct Bilirubin AST ALT Alkaline Phosphatase Lactate Dehydrogenase Troponin T C-Reactive Protein Total Protein Albumin Prealbumin Triglycerides Cholesterol LDL Cholesterol Direct HDL Cholesterol 25-OH Vitamin D Total PTH Intact Urine pH Urine WBC (Auto) Urine Creatinine Urine Total Protein Fluid Total Protein Vancomycin Trough Rheumatoid Factor Complement C4 Miscellaneous Test Crossmatch 09/30/16 09/30/16 09/30/16 11:26 13:39 18:38 WBC RBC Hgb Hct MCV MCH MCHC RDW Plt Count Lymph % (Auto) [place] % (Auto) Lymph # [place] # Baso # Seg Neutrophils % Seg Neuts % (Manual) Lymphocytes % (Manual) Monocytes % (Manual) Eosinophils % (Manual) Basophils % (Manual) Nucleated RBC % Seg Neutrophils # Seg Neutrophils # Man Lymphocytes # (Manual) Monocytes # (Manual) Eosinophils # (Manual) Basophils # (Manual) PT INR Fibrinogen dRVVT Confirm Interp Factor V Activity POC ABG pH 7.479 H POC ABG pCO2 29.8 L POC ABG pO2 117 H ABG pO2 ABG HCO3 ABG Base Excess ABG Hemoglobin Oxyhemoglobin Sodium Potassium Chloride Carbon Dioxide BUN Creatinine Glucose POC Glucose 140 H 122 H Lactic Acid Calcium Ionized Calcium Phosphorus Magnesium Direct Bilirubin AST ALT Alkaline Phosphatase Lactate Dehydrogenase Troponin T C-Reactive Protein Total Protein Albumin Prealbumin Triglycerides Cholesterol LDL Cholesterol Direct HDL Cholesterol 25-OH Vitamin D Total PTH Intact Urine pH Urine WBC (Auto) Urine Creatinine Urine Total Protein Fluid Total Protein Vancomycin Trough Rheumatoid Factor Complement C4 Miscellaneous Test Crossmatch 10/01/16 10/01/16 10/01/16 06:00 06:00 12:37 WBC 12.6 H RBC 2.75 L Hgb 7.3 L Hct 23.3 L MCV MCH 27 L MCHC RDW 20.6 H Plt Count 72 L Lymph % (Auto) [place] % (Auto) Lymph # [place] # Baso # Seg Neutrophils % Seg Neuts % (Manual) 31.0 L Lymphocytes % (Manual) 8.0 L Monocytes % (Manual) Eosinophils % (Manual) Basophils % (Manual) Nucleated RBC % 3.0 H Seg Neutrophils # Seg Neutrophils # Man Lymphocytes # (Manual) 1.0 L Monocytes # (Manual) Eosinophils # (Manual) Basophils # (Manual) PT INR Fibrinogen dRVVT Confirm Interp Factor V Activity POC ABG pH POC ABG pCO2 POC ABG pO2 ABG pO2 ABG HCO3 ABG Base Excess ABG Hemoglobin Oxyhemoglobin Sodium 127 L Potassium Chloride 86.8 L Carbon Dioxide 20 L BUN 42 H Creatinine 3.5 H Glucose POC Glucose 65 L Lactic Acid Calcium 7.0 L Ionized Calcium Phosphorus Magnesium Direct Bilirubin AST ALT Alkaline Phosphatase Lactate Dehydrogenase Troponin T C-Reactive Protein Total Protein Albumin Prealbumin Triglycerides Cholesterol LDL Cholesterol Direct HDL Cholesterol 25-OH Vitamin D Total PTH Intact Urine pH Urine WBC (Auto) Urine Creatinine Urine Total Protein Fluid Total Protein Vancomycin Trough Rheumatoid Factor Complement C4 Miscellaneous Test Crossmatch 10/01/16 10/01/16 10/02/16 17:39 23:32 00:59 WBC RBC Hgb Hct MCV MCH MCHC RDW Plt Count Lymph % (Auto) [place] % (Auto) Lymph # [place] # Baso # Seg Neutrophils % Seg Neuts % (Manual) Lymphocytes % (Manual) Monocytes % (Manual) Eosinophils % (Manual) Basophils % (Manual) Nucleated RBC % Seg Neutrophils # Seg Neutrophils # Man Lymphocytes # (Manual) Monocytes # (Manual) Eosinophils # (Manual) Basophils # (Manual) PT INR Fibrinogen dRVVT Confirm Interp Factor V Activity POC ABG pH POC ABG pCO2 POC ABG pO2 ABG pO2 ABG HCO3 ABG Base Excess ABG Hemoglobin Oxyhemoglobin Sodium Potassium Chloride Carbon Dioxide BUN Creatinine Glucose POC Glucose 107 H 52 L 145 H Lactic Acid Calcium Ionized Calcium Phosphorus Magnesium Direct Bilirubin AST ALT Alkaline Phosphatase Lactate Dehydrogenase Troponin T C-Reactive Protein Total Protein Albumin Prealbumin Triglycerides Cholesterol LDL Cholesterol Direct HDL Cholesterol 25-OH Vitamin D Total PTH Intact Urine pH Urine WBC (Auto) Urine Creatinine Urine Total Protein Fluid Total Protein Vancomycin Trough Rheumatoid Factor Complement C4 Miscellaneous Test Crossmatch 10/02/16 10/02/16 10/02/16 10:30 10:50 10:50 WBC 14.7 H RBC 2.76 L Hgb 7.4 L Hct 23.6 L MCV MCH 27 L MCHC RDW 20.2 H Plt Count 79 L Lymph % (Auto) [place] % (Auto) Lymph # [place] # Baso # Seg Neutrophils % Seg Neuts % (Manual) 86.0 H Lymphocytes % (Manual) 6.0 L Monocytes % (Manual) Eosinophils % (Manual) Basophils % (Manual) Nucleated RBC % Seg Neutrophils # Seg Neutrophils # Man 12.6 H Lymphocytes # (Manual) 0.9 L Monocytes # (Manual) Eosinophils # (Manual) Basophils # (Manual) PT INR Fibrinogen dRVVT Confirm Interp Factor V Activity POC ABG pH 7.486 H POC ABG pCO2 30.1 L POC ABG pO2 108 H ABG pO2 ABG HCO3 ABG Base Excess ABG Hemoglobin Oxyhemoglobin Sodium 131 L Potassium 3.4 L Chloride 89.9 L Carbon Dioxide BUN 26 H Creatinine 2.6 H Glucose POC Glucose Lactic Acid Calcium 7.0 L Ionized Calcium Phosphorus Magnesium Direct Bilirubin AST ALT Alkaline Phosphatase Lactate Dehydrogenase Troponin T C-Reactive Protein Total Protein Albumin Prealbumin Triglycerides Cholesterol LDL Cholesterol Direct HDL Cholesterol 25-OH Vitamin D Total PTH Intact Urine pH Urine WBC (Auto) Urine Creatinine Urine Total Protein Fluid Total Protein Vancomycin Trough Rheumatoid Factor Complement C4 Miscellaneous Test Crossmatch 10/02/16 10/03/16 10/03/16 23:45 00:45 05:10 WBC 12.9 H RBC 2.77 L Hgb 7.6 L Hct 23.7 L MCV MCH 27 L MCHC RDW 19.7 H Plt Count 89 L Lymph % (Auto) [place] % (Auto) Lymph # [place] # Baso # Seg Neutrophils % Seg Neuts % (Manual) Lymphocytes % (Manual) 8.0 L Monocytes % (Manual) Eosinophils % (Manual) Basophils % (Manual) Nucleated RBC % Seg Neutrophils # 11.9 H Seg Neutrophils # Man Lymphocytes # (Manual) 1.0 L Monocytes # (Manual) Eosinophils # (Manual) Basophils # (Manual) PT INR Fibrinogen dRVVT Confirm Interp Factor V Activity POC ABG pH POC ABG pCO2 POC ABG pO2 ABG pO2 ABG HCO3 ABG Base Excess ABG Hemoglobin Oxyhemoglobin Sodium Potassium Chloride Carbon Dioxide BUN Creatinine Glucose POC Glucose 55 L 199 H Lactic Acid Calcium Ionized Calcium Phosphorus Magnesium Direct Bilirubin AST ALT Alkaline Phosphatase Lactate Dehydrogenase Troponin T C-Reactive Protein Total Protein Albumin Prealbumin Triglycerides Cholesterol LDL Cholesterol Direct HDL Cholesterol 25-OH Vitamin D Total PTH Intact Urine pH Urine WBC (Auto) Urine Creatinine Urine Total Protein Fluid Total Protein Vancomycin Trough Rheumatoid Factor Complement C4 Miscellaneous Test Crossmatch 10/03/16 10/03/16 10/03/16 05:10 12:14 13:18 WBC RBC Hgb Hct MCV MCH MCHC RDW Plt Count Lymph % (Auto) [place] % (Auto) Lymph # [place] # Baso # Seg Neutrophils % Seg Neuts % (Manual) Lymphocytes % (Manual) Monocytes % (Manual) Eosinophils % (Manual) Basophils % (Manual) Nucleated RBC % Seg Neutrophils # Seg Neutrophils # Man Lymphocytes # (Manual) Monocytes # (Manual) Eosinophils # (Manual) Basophils # (Manual) PT INR Fibrinogen dRVVT Confirm Interp Factor V Activity POC ABG pH POC ABG pCO2 POC ABG pO2 ABG pO2 ABG HCO3 ABG Base Excess ABG Hemoglobin Oxyhemoglobin Sodium 129 L Potassium 3.3 L Chloride 88.8 L Carbon Dioxide 20 L BUN 29 H Creatinine 2.8 H Glucose POC Glucose 68 L 127 H Lactic Acid Calcium 7.2 L Ionized Calcium Phosphorus Magnesium Direct Bilirubin AST ALT Alkaline Phosphatase Lactate Dehydrogenase Troponin T C-Reactive Protein Total Protein Albumin Prealbumin Triglycerides Cholesterol LDL Cholesterol Direct HDL Cholesterol 25-OH Vitamin D Total PTH Intact Urine pH Urine WBC (Auto) Urine Creatinine Urine Total Protein Fluid Total Protein Vancomycin Trough Rheumatoid Factor Complement C4 Miscellaneous Test Crossmatch 10/03/16 10/03/16 10/03/16 14:42 18:21 19:09 WBC RBC Hgb Hct MCV MCH MCHC RDW Plt Count Lymph % (Auto) [place] % (Auto) Lymph # [place] # Baso # Seg Neutrophils % Seg Neuts % (Manual) Lymphocytes % (Manual) Monocytes % (Manual) Eosinophils % (Manual) Basophils % (Manual) Nucleated RBC % Seg Neutrophils # Seg Neutrophils # Man Lymphocytes # (Manual) Monocytes # (Manual) Eosinophils # (Manual) Basophils # (Manual) PT INR Fibrinogen dRVVT Confirm Interp Factor V Activity POC ABG pH 7.499 H POC ABG pCO2 28.4 L POC ABG pO2 44 L ABG pO2 ABG HCO3 ABG Base Excess ABG Hemoglobin Oxyhemoglobin Sodium Potassium Chloride Carbon Dioxide BUN Creatinine Glucose POC Glucose 64 L 205 H Lactic Acid Calcium Ionized Calcium Phosphorus Magnesium Direct Bilirubin AST ALT Alkaline Phosphatase Lactate Dehydrogenase Troponin T C-Reactive Protein Total Protein Albumin Prealbumin Triglycerides Cholesterol LDL Cholesterol Direct HDL Cholesterol 25-OH Vitamin D Total PTH Intact Urine pH Urine WBC (Auto) Urine Creatinine Urine Total Protein Fluid Total Protein Vancomycin Trough Rheumatoid Factor Complement C4 Miscellaneous Test Crossmatch 10/03/16 10/04/16 10/04/16 23:33 04:18 06:30 WBC RBC 2.54 L Hgb 7.1 L Hct 21.7 L MCV MCH MCHC RDW 19.5 H Plt Count 76 L Lymph % (Auto) [place] % (Auto) Lymph # [place] # Baso # Seg Neutrophils % Seg Neuts % (Manual) 88.0 H Lymphocytes % (Manual) 6.0 L Monocytes % (Manual) Eosinophils % (Manual) Basophils % (Manual) Nucleated RBC % Seg Neutrophils # Seg Neutrophils # Man 8.8 H Lymphocytes # (Manual) 0.6 L Monocytes # (Manual) Eosinophils # (Manual) Basophils # (Manual) PT INR Fibrinogen dRVVT Confirm Interp Factor V Activity POC ABG pH 7.461 H POC ABG pCO2 33.6 L POC ABG pO2 211 H ABG pO2 ABG HCO3 ABG Base Excess ABG Hemoglobin Oxyhemoglobin Sodium Potassium Chloride Carbon Dioxide BUN Creatinine Glucose POC Glucose 136 H Lactic Acid Calcium Ionized Calcium Phosphorus Magnesium Direct Bilirubin AST ALT Alkaline Phosphatase Lactate Dehydrogenase Troponin T C-Reactive Protein Total Protein Albumin Prealbumin Triglycerides Cholesterol LDL Cholesterol Direct HDL Cholesterol 25-OH Vitamin D Total PTH Intact Urine pH Urine WBC (Auto) Urine Creatinine Urine Total Protein Fluid Total Protein Vancomycin Trough Rheumatoid Factor Complement C4 Miscellaneous Test Crossmatch 10/04/16 10/04/16 10/04/16 06:30 11:45 17:54 WBC RBC Hgb Hct MCV MCH MCHC RDW Plt Count Lymph % (Auto) [place] % (Auto) Lymph # [place] # Baso # Seg Neutrophils % Seg Neuts % (Manual) Lymphocytes % (Manual) Monocytes % (Manual) Eosinophils % (Manual) Basophils % (Manual) Nucleated RBC % Seg Neutrophils # Seg Neutrophils # Man Lymphocytes # (Manual) Monocytes # (Manual) Eosinophils # (Manual) Basophils # (Manual) PT INR Fibrinogen dRVVT Confirm Interp Factor V Activity POC ABG pH POC ABG pCO2 POC ABG pO2 ABG pO2 ABG HCO3 ABG Base Excess ABG Hemoglobin Oxyhemoglobin Sodium 128 L Potassium Chloride 87.4 L Carbon Dioxide 20 L BUN 34 H Creatinine 2.9 H Glucose 127 H POC Glucose 158 H 160 H Lactic Acid Calcium 7.4 L Ionized Calcium Phosphorus Magnesium Direct Bilirubin AST ALT Alkaline Phosphatase Lactate Dehydrogenase Troponin T C-Reactive Protein Total Protein Albumin Prealbumin Triglycerides Cholesterol LDL Cholesterol Direct HDL Cholesterol 25-OH Vitamin D Total PTH Intact Urine pH Urine WBC (Auto) Urine Creatinine Urine Total Protein Fluid Total Protein Vancomycin Trough Rheumatoid Factor Complement C4 Miscellaneous Test Crossmatch 10/04/16 10/05/16 10/05/16 23:25 04:30 05:00 WBC RBC 2.64 L Hgb 7.5 L Hct 22.6 L MCV MCH MCHC RDW 19.3 H Plt Count 80 L Lymph % (Auto) [place] % (Auto) Lymph # [place] # Baso # Seg Neutrophils % Seg Neuts % (Manual) Lymphocytes % (Manual) 12.0 L Monocytes % (Manual) Eosinophils % (Manual) Basophils % (Manual) Nucleated RBC % Seg Neutrophils # Seg Neutrophils # Man Lymphocytes # (Manual) Monocytes # (Manual) Eosinophils # (Manual) Basophils # (Manual) PT INR Fibrinogen dRVVT Confirm Interp Factor V Activity POC ABG pH 7.475 H POC ABG pCO2 33.3 L POC ABG pO2 140 H ABG pO2 ABG HCO3 ABG Base Excess ABG Hemoglobin Oxyhemoglobin Sodium Potassium Chloride Carbon Dioxide BUN Creatinine Glucose POC Glucose 141 H Lactic Acid Calcium Ionized Calcium Phosphorus Magnesium Direct Bilirubin AST ALT Alkaline Phosphatase Lactate Dehydrogenase Troponin T C-Reactive Protein Total Protein Albumin Prealbumin Triglycerides Cholesterol LDL Cholesterol Direct HDL Cholesterol 25-OH Vitamin D Total PTH Intact Urine pH Urine WBC (Auto) Urine Creatinine Urine Total Protein Fluid Total Protein Vancomycin Trough Rheumatoid Factor Complement C4 Miscellaneous Test Crossmatch 10/05/16 10/05/16 10/05/16 05:00 05:09 12:58 WBC RBC Hgb Hct MCV MCH MCHC RDW Plt Count Lymph % (Auto) [place] % (Auto) Lymph # [place] # Baso # Seg Neutrophils % Seg Neuts % (Manual) Lymphocytes % (Manual) Monocytes % (Manual) Eosinophils % (Manual) Basophils % (Manual) Nucleated RBC % Seg Neutrophils # Seg Neutrophils # Man Lymphocytes # (Manual) Monocytes # (Manual) Eosinophils # (Manual) Basophils # (Manual) PT INR Fibrinogen dRVVT Confirm Interp Factor V Activity POC ABG pH POC ABG pCO2 POC ABG pO2 ABG pO2 ABG HCO3 ABG Base Excess ABG Hemoglobin Oxyhemoglobin Sodium 131 L Potassium Chloride 94.0 L Carbon Dioxide 20 L BUN 22 H Creatinine 2.0 H Glucose 123 H POC Glucose 166 H 179 H Lactic Acid Calcium 7.7 L Ionized Calcium Phosphorus 2.20 L D Magnesium Direct Bilirubin AST ALT Alkaline Phosphatase Lactate Dehydrogenase Troponin T C-Reactive Protein Total Protein Albumin Prealbumin Triglycerides Cholesterol LDL Cholesterol Direct HDL Cholesterol 25-OH Vitamin D Total PTH Intact Urine pH Urine WBC (Auto) Urine Creatinine Urine Total Protein Fluid Total Protein Vancomycin Trough Rheumatoid Factor Complement C4 Miscellaneous Test Crossmatch 10/05/16 10/05/16 10/05/16 15:50 18:53 23:12 WBC RBC Hgb Hct MCV MCH MCHC RDW Plt Count Lymph % (Auto) [place] % (Auto) Lymph # [place] # Baso # Seg Neutrophils % Seg Neuts % (Manual) Lymphocytes % (Manual) Monocytes % (Manual) Eosinophils % (Manual) Basophils % (Manual) Nucleated RBC % Seg Neutrophils # Seg Neutrophils # Man Lymphocytes # (Manual) Monocytes # (Manual) Eosinophils # (Manual) Basophils # (Manual) PT INR Fibrinogen dRVVT Confirm Interp Factor V Activity POC ABG pH POC ABG pCO2 POC ABG pO2 ABG pO2 ABG HCO3 ABG Base Excess ABG Hemoglobin Oxyhemoglobin Sodium Potassium Chloride Carbon Dioxide BUN Creatinine Glucose POC Glucose 150 H 164 H Lactic Acid Calcium Ionized Calcium Phosphorus Magnesium Direct Bilirubin AST ALT Alkaline Phosphatase Lactate Dehydrogenase Troponin T C-Reactive Protein Total Protein Albumin Prealbumin Triglycerides Cholesterol LDL Cholesterol Direct HDL Cholesterol 25-OH Vitamin D Total PTH Intact Urine pH Urine WBC (Auto) Urine Creatinine Urine Total Protein Fluid Total Protein Vancomycin Trough Rheumatoid Factor Complement C4 Miscellaneous Test Crossmatch See Detail 10/06/16 10/06/16 10/06/16 03:50 03:50 04:53 WBC RBC 3.00 L Hgb 8.6 L Hct 25.8 L MCV MCH MCHC RDW 17.9 H Plt Count 65 L Lymph % (Auto) [place] % (Auto) Lymph # [place] # Baso # Seg Neutrophils % Seg Neuts % (Manual) 30.0 L Lymphocytes % (Manual) 5.0 L Monocytes % (Manual) Eosinophils % (Manual) Basophils % (Manual) Nucleated RBC % Seg Neutrophils # Seg Neutrophils # Man Lymphocytes # (Manual) 0.4 L Monocytes # (Manual) Eosinophils # (Manual) Basophils # (Manual) PT INR Fibrinogen dRVVT Confirm Interp Factor V Activity POC ABG pH 7.310 L POC ABG pCO2 49.0 H POC ABG pO2 ABG pO2 ABG HCO3 ABG Base Excess ABG Hemoglobin Oxyhemoglobin Sodium 133 L Potassium Chloride 95.9 L Carbon Dioxide BUN 26 H Creatinine 2.0 H Glucose 116 H POC Glucose Lactic Acid Calcium 7.8 L Ionized Calcium Phosphorus Magnesium Direct Bilirubin AST ALT Alkaline Phosphatase Lactate Dehydrogenase Troponin T C-Reactive Protein Total Protein Albumin Prealbumin Triglycerides Cholesterol LDL Cholesterol Direct HDL Cholesterol 25-OH Vitamin D Total PTH Intact Urine pH Urine WBC (Auto) Urine Creatinine Urine Total Protein Fluid Total Protein Vancomycin Trough Rheumatoid Factor Complement C4 Miscellaneous Test Crossmatch 10/06/16 10/06/16 10/06/16 05:23 11:52 18:34 WBC RBC Hgb Hct MCV MCH MCHC RDW Plt Count Lymph % (Auto) [place] % (Auto) Lymph # [place] # Baso # Seg Neutrophils % Seg Neuts % (Manual) Lymphocytes % (Manual) Monocytes % (Manual) Eosinophils % (Manual) Basophils % (Manual) Nucleated RBC % Seg Neutrophils # Seg Neutrophils # Man Lymphocytes # (Manual) Monocytes # (Manual) Eosinophils # (Manual) Basophils # (Manual) PT INR Fibrinogen dRVVT Confirm Interp Factor V Activity POC ABG pH POC ABG pCO2 POC ABG pO2 ABG pO2 ABG HCO3 ABG Base Excess ABG Hemoglobin Oxyhemoglobin Sodium Potassium Chloride Carbon Dioxide BUN Creatinine Glucose POC Glucose 126 H 116 H 129 H Lactic Acid Calcium Ionized Calcium Phosphorus Magnesium Direct Bilirubin AST ALT Alkaline Phosphatase Lactate Dehydrogenase Troponin T C-Reactive Protein Total Protein Albumin Prealbumin Triglycerides Cholesterol LDL Cholesterol Direct HDL Cholesterol 25-OH Vitamin D Total PTH Intact Urine pH Urine WBC (Auto) Urine Creatinine Urine Total Protein Fluid Total Protein Vancomycin Trough Rheumatoid Factor Complement C4 Miscellaneous Test Crossmatch 10/07/16 10/07/16 10/07/16 03:45 05:00 10:00 WBC 17.0 H RBC 2.68 L Hgb 7.3 L Hct 25.3 L MCV MCH 27 L MCHC 29 L RDW 19.6 H Plt Count 74 L Lymph % (Auto) [place] % (Auto) Lymph # [place] # Baso # Seg Neutrophils % Seg Neuts % (Manual) Lymphocytes % (Manual) 12.0 L Monocytes % (Manual) Eosinophils % (Manual) Basophils % (Manual) Nucleated RBC % 4.0 H Seg Neutrophils # Seg Neutrophils # Man 10.7 H Lymphocytes # (Manual) Monocytes # (Manual) Eosinophils # (Manual) Basophils # (Manual) PT INR Fibrinogen dRVVT Confirm Interp Factor V Activity POC ABG pH POC ABG pCO2 POC ABG pO2 ABG pO2 ABG HCO3 ABG Base Excess ABG Hemoglobin Oxyhemoglobin Sodium 130 L Potassium 3.2 L Chloride 93.9 L Carbon Dioxide 20 L BUN 44 H Creatinine 2.7 H Glucose 129 H POC Glucose Lactic Acid Calcium 7.4 L Ionized Calcium Phosphorus Magnesium Direct Bilirubin AST ALT 6 L Alkaline Phosphatase 195 H Lactate Dehydrogenase Troponin T C-Reactive Protein Total Protein 4.9 L Albumin 1.0 L Prealbumin Triglycerides Cholesterol LDL Cholesterol Direct HDL Cholesterol 25-OH Vitamin D Total PTH Intact Urine pH Urine WBC (Auto) Urine Creatinine Urine Total Protein Fluid Total Protein Vancomycin Trough Rheumatoid Factor Complement C4 Miscellaneous Test Flexitest 1 H Crossmatch 10/07/16 10/07/16 10/07/16 10:00 11:24 18:10 WBC RBC Hgb Hct MCV MCH MCHC RDW Plt Count Lymph % (Auto) [place] % (Auto) Lymph # [place] # Baso # Seg Neutrophils % Seg Neuts % (Manual) Lymphocytes % (Manual) Monocytes % (Manual) Eosinophils % (Manual) Basophils % (Manual) Nucleated RBC % Seg Neutrophils # Seg Neutrophils # Man Lymphocytes # (Manual) Monocytes # (Manual) Eosinophils # (Manual) Basophils # (Manual) PT INR Fibrinogen dRVVT Confirm Interp Factor V Activity POC ABG pH POC ABG pCO2 POC ABG pO2 ABG pO2 ABG HCO3 ABG Base Excess ABG Hemoglobin Oxyhemoglobin Sodium Potassium Chloride Carbon Dioxide BUN Creatinine Glucose POC Glucose 116 H 130 H Lactic Acid Calcium Ionized Calcium Phosphorus Magnesium Direct Bilirubin AST ALT Alkaline Phosphatase Lactate Dehydrogenase Troponin T C-Reactive Protein 19.40 H Total Protein Albumin Prealbumin Triglycerides Cholesterol LDL Cholesterol Direct HDL Cholesterol 25-OH Vitamin D Total PTH Intact Urine pH Urine WBC (Auto) Urine Creatinine Urine Total Protein Fluid Total Protein Vancomycin Trough Rheumatoid Factor Complement C4 Miscellaneous Test Crossmatch 10/07/16 10/08/16 10/08/16 18:30 00:00 04:00 WBC RBC Hgb Hct MCV MCH MCHC RDW Plt Count Lymph % (Auto) [place] % (Auto) Lymph # [place] # Baso # Seg Neutrophils % Seg Neuts % (Manual) Lymphocytes % (Manual) Monocytes % (Manual) Eosinophils % (Manual) Basophils % (Manual) Nucleated RBC % Seg Neutrophils # Seg Neutrophils # Man Lymphocytes # (Manual) Monocytes # (Manual) Eosinophils # (Manual) Basophils # (Manual) PT INR Fibrinogen dRVVT Confirm Interp Factor V Activity POC ABG pH POC ABG pCO2 POC ABG pO2 ABG pO2 ABG HCO3 ABG Base Excess ABG Hemoglobin Oxyhemoglobin Sodium 132 L Potassium 3.3 L Chloride 93.6 L Carbon Dioxide 17 L BUN 59 H Creatinine 2.7 H Glucose 121 H POC Glucose 122 H Lactic Acid Calcium 7.6 L Ionized Calcium Phosphorus Magnesium Direct Bilirubin AST ALT Alkaline Phosphatase Lactate Dehydrogenase Troponin T C-Reactive Protein Total Protein Albumin Prealbumin Triglycerides Cholesterol LDL Cholesterol Direct HDL Cholesterol 25-OH Vitamin D Total PTH Intact Urine pH Urine WBC (Auto) > 182.0 H Urine Creatinine Urine Total Protein Fluid Total Protein Vancomycin Trough Rheumatoid Factor Complement C4 Miscellaneous Test Crossmatch 10/08/16 10/08/16 10/08/16 04:30 05:30 11:51 WBC RBC 5.15 H Hgb 14.4 H D Hct 44.5 H D MCV MCH MCHC RDW 19.5 H Plt Count 56 L Lymph % (Auto) [place] % (Auto) Lymph # [place] # Baso # Seg Neutrophils % Seg Neuts % (Manual) 24.0 L Lymphocytes % (Manual) 8.0 L Monocytes % (Manual) Eosinophils % (Manual) Basophils % (Manual) Nucleated RBC % 9.0 H Seg Neutrophils # Seg Neutrophils # Man Lymphocytes # (Manual) 0.7 L Monocytes # (Manual) Eosinophils # (Manual) Basophils # (Manual) PT INR Fibrinogen dRVVT Confirm Interp Factor V Activity POC ABG pH POC ABG pCO2 POC ABG pO2 ABG pO2 ABG HCO3 ABG Base Excess ABG Hemoglobin Oxyhemoglobin Sodium Potassium Chloride Carbon Dioxide BUN Creatinine Glucose POC Glucose 125 H 150 H Lactic Acid Calcium Ionized Calcium Phosphorus Magnesium Direct Bilirubin AST ALT Alkaline Phosphatase Lactate Dehydrogenase Troponin T C-Reactive Protein Total Protein Albumin Prealbumin Triglycerides Cholesterol LDL Cholesterol Direct HDL Cholesterol 25-OH Vitamin D Total PTH Intact Urine pH Urine WBC (Auto) Urine Creatinine Urine Total Protein Fluid Total Protein Vancomycin Trough Rheumatoid Factor Complement C4 Miscellaneous Test Crossmatch 10/08/16 10/08/16 10/08/16 12:49 17:07 19:30 WBC RBC Hgb 7.1 L D Hct 22.4 L D MCV MCH MCHC RDW Plt Count Lymph % (Auto) [place] % (Auto) Lymph # [place] # Baso # Seg Neutrophils % Seg Neuts % (Manual) Lymphocytes % (Manual) Monocytes % (Manual) Eosinophils % (Manual) Basophils % (Manual) Nucleated RBC % Seg Neutrophils # Seg Neutrophils # Man Lymphocytes # (Manual) Monocytes # (Manual) Eosinophils # (Manual) Basophils # (Manual) PT INR Fibrinogen dRVVT Confirm Interp Factor V Activity POC ABG pH POC ABG pCO2 28.2 L POC ABG pO2 111 H ABG pO2 ABG HCO3 ABG Base Excess ABG Hemoglobin Oxyhemoglobin Sodium Potassium Chloride Carbon Dioxide BUN Creatinine Glucose POC Glucose 145 H Lactic Acid Calcium Ionized Calcium Phosphorus Magnesium Direct Bilirubin AST ALT Alkaline Phosphatase Lactate Dehydrogenase Troponin T C-Reactive Protein Total Protein Albumin Prealbumin Triglycerides Cholesterol LDL Cholesterol Direct HDL Cholesterol 25-OH Vitamin D Total PTH Intact Urine pH Urine WBC (Auto) Urine Creatinine Urine Total Protein Fluid Total Protein Vancomycin Trough Rheumatoid Factor Complement C4 Miscellaneous Test Crossmatch 10/08/16 10/09/16 10/09/16 19:30 03:45 03:45 WBC 12.6 H RBC 2.36 L Hgb 6.7 L Hct 21.1 L MCV MCH MCHC RDW 19.5 H Plt Count 75 L Lymph % (Auto) [place] % (Auto) Lymph # [place] # Baso # Seg Neutrophils % Seg Neuts % (Manual) Lymphocytes % (Manual) Monocytes % (Manual) 10.0 H Eosinophils % (Manual) Basophils % (Manual) Nucleated RBC % 3.0 H Seg Neutrophils # Seg Neutrophils # Man Lymphocytes # (Manual) Monocytes # (Manual) 1.3 H Eosinophils # (Manual) Basophils # (Manual) PT 18.0 H INR 1.41 H Fibrinogen dRVVT Confirm Interp Factor V Activity POC ABG pH POC ABG pCO2 POC ABG pO2 ABG pO2 ABG HCO3 ABG Base Excess ABG Hemoglobin Oxyhemoglobin Sodium 135 L Potassium Chloride Carbon Dioxide 17 L BUN 81 H Creatinine 3.2 H Glucose 109 H POC Glucose Lactic Acid Calcium 7.4 L Ionized Calcium Phosphorus 4.60 H D Magnesium Direct Bilirubin AST ALT Alkaline Phosphatase Lactate Dehydrogenase Troponin T C-Reactive Protein Total Protein Albumin Prealbumin Triglycerides Cholesterol LDL Cholesterol Direct HDL Cholesterol 25-OH Vitamin D Total PTH Intact Urine pH Urine WBC (Auto) Urine Creatinine Urine Total Protein Fluid Total Protein Vancomycin Trough Rheumatoid Factor Complement C4 Miscellaneous Test Crossmatch 10/09/16 10/09/16 10/09/16 03:45 05:14 07:20 WBC RBC Hgb Hct MCV MCH MCHC RDW Plt Count Lymph % (Auto) [place] % (Auto) Lymph # [place] # Baso # Seg Neutrophils % Seg Neuts % (Manual) Lymphocytes % (Manual) Monocytes % (Manual) Eosinophils % (Manual) Basophils % (Manual) Nucleated RBC % Seg Neutrophils # Seg Neutrophils # Man Lymphocytes # (Manual) Monocytes # (Manual) Eosinophils # (Manual) Basophils # (Manual) PT 19.0 H INR 1.51 H Fibrinogen dRVVT Confirm Interp Factor V Activity POC ABG pH POC ABG pCO2 POC ABG pO2 ABG pO2 ABG HCO3 ABG Base Excess ABG Hemoglobin Oxyhemoglobin Sodium Potassium Chloride Carbon Dioxide BUN Creatinine Glucose POC Glucose 151 H Lactic Acid Calcium Ionized Calcium Phosphorus Magnesium Direct Bilirubin AST ALT Alkaline Phosphatase Lactate Dehydrogenase Troponin T C-Reactive Protein Total Protein Albumin Prealbumin Triglycerides Cholesterol LDL Cholesterol Direct HDL Cholesterol 25-OH Vitamin D Total PTH Intact Urine pH Urine WBC (Auto) Urine Creatinine Urine Total Protein Fluid Total Protein Vancomycin Trough Rheumatoid Factor Complement C4 Miscellaneous Test Crossmatch See Detail 10/09/16 10/09/16 10/09/16 11:46 16:20 16:43 WBC RBC Hgb 7.2 L Hct 22.2 L MCV MCH MCHC RDW Plt Count Lymph % (Auto) [place] % (Auto) Lymph # [place] # Baso # Seg Neutrophils % Seg Neuts % (Manual) Lymphocytes % (Manual) Monocytes % (Manual) Eosinophils % (Manual) Basophils % (Manual) Nucleated RBC % Seg Neutrophils # Seg Neutrophils # Man Lymphocytes # (Manual) Monocytes # (Manual) Eosinophils # (Manual) Basophils # (Manual) PT INR Fibrinogen dRVVT Confirm Interp Factor V Activity POC ABG pH POC ABG pCO2 POC ABG pO2 ABG pO2 ABG HCO3 ABG Base Excess ABG Hemoglobin Oxyhemoglobin Sodium Potassium Chloride Carbon Dioxide BUN Creatinine Glucose POC Glucose 133 H 141 H Lactic Acid Calcium Ionized Calcium Phosphorus Magnesium Direct Bilirubin AST ALT Alkaline Phosphatase Lactate Dehydrogenase Troponin T C-Reactive Protein Total Protein Albumin Prealbumin Triglycerides Cholesterol LDL Cholesterol Direct HDL Cholesterol 25-OH Vitamin D Total PTH Intact Urine pH Urine WBC (Auto) Urine Creatinine Urine Total Protein Fluid Total Protein Vancomycin Trough Rheumatoid Factor Complement C4 Miscellaneous Test Crossmatch 10/10/16 10/10/16 10/10/16 05:00 05:00 11:19 WBC 18.5 H RBC 2.19 L Hgb 6.4 L Hct 19.6 L* MCV MCH MCHC RDW 19.3 H Plt Count 93 L Lymph % (Auto) [place] % (Auto) Lymph # [place] # Baso # Seg Neutrophils % Seg Neuts % (Manual) Lymphocytes % (Manual) 10.0 L Monocytes % (Manual) Eosinophils % (Manual) Basophils % (Manual) Nucleated RBC % 4.0 H Seg Neutrophils # Seg Neutrophils # Man 11.3 H Lymphocytes # (Manual) Monocytes # (Manual) Eosinophils # (Manual) Basophils # (Manual) PT INR Fibrinogen dRVVT Confirm Interp Factor V Activity POC ABG pH POC ABG pCO2 POC ABG pO2 ABG pO2 ABG HCO3 ABG Base Excess ABG Hemoglobin Oxyhemoglobin Sodium Potassium 5.7 H D Chloride Carbon Dioxide 16 L BUN 94 H Creatinine 3.1 H Glucose 131 H POC Glucose 153 H Lactic Acid Calcium 8.2 L Ionized Calcium Phosphorus 5.10 H Magnesium 2.40 H Direct Bilirubin 0.3 H AST ALT < 5 L Alkaline Phosphatase 319 H Lactate Dehydrogenase Troponin T C-Reactive Protein Total Protein 5.1 L Albumin 1.0 L Prealbumin Triglycerides Cholesterol LDL Cholesterol Direct HDL Cholesterol 25-OH Vitamin D Total PTH Intact Urine pH Urine WBC (Auto) Urine Creatinine Urine Total Protein Fluid Total Protein Vancomycin Trough Rheumatoid Factor Complement C4 Miscellaneous Test Crossmatch 10/10/16 10/10/16 10/11/16 17:50 23:30 04:15 WBC RBC Hgb Hct MCV MCH MCHC RDW Plt Count Lymph % (Auto) [place] % (Auto) Lymph # [place] # Baso # Seg Neutrophils % Seg Neuts % (Manual) Lymphocytes % (Manual) Monocytes % (Manual) Eosinophils % (Manual) Basophils % (Manual) Nucleated RBC % Seg Neutrophils # Seg Neutrophils # Man Lymphocytes # (Manual) Monocytes # (Manual) Eosinophils # (Manual) Basophils # (Manual) PT INR Fibrinogen dRVVT Confirm Interp Factor V Activity POC ABG pH POC ABG pCO2 POC ABG pO2 ABG pO2 ABG HCO3 ABG Base Excess ABG Hemoglobin Oxyhemoglobin Sodium Potassium Chloride 96.4 L Carbon Dioxide 21 L BUN 57 H Creatinine 2.1 H Glucose 151 H POC Glucose 146 H 141 H Lactic Acid Calcium 8.3 L Ionized Calcium Phosphorus Magnesium Direct Bilirubin AST ALT Alkaline Phosphatase Lactate Dehydrogenase Troponin T C-Reactive Protein Total Protein Albumin Prealbumin Triglycerides Cholesterol LDL Cholesterol Direct HDL Cholesterol 25-OH Vitamin D Total PTH Intact Urine pH Urine WBC (Auto) Urine Creatinine Urine Total Protein Fluid Total Protein Vancomycin Trough Rheumatoid Factor Complement C4 Miscellaneous Test Crossmatch 10/11/16 10/11/16 10/11/16 04:15 04:15 05:30 WBC 28.3 H RBC 3.12 L Hgb 9.3 L Hct 28.7 L D MCV MCH MCHC RDW 17.7 H Plt Count 128 L Lymph % (Auto) [place] % (Auto) Lymph # [place] # Baso # Seg Neutrophils % Seg Neuts % (Manual) Lymphocytes % (Manual) Monocytes % (Manual) Eosinophils % (Manual) Basophils % (Manual) Nucleated RBC % Seg Neutrophils # Seg Neutrophils # Man Lymphocytes # (Manual) Monocytes # (Manual) Eosinophils # (Manual) Basophils # (Manual) PT INR Fibrinogen dRVVT Confirm Interp Factor V Activity POC ABG pH POC ABG pCO2 POC ABG pO2 ABG pO2 ABG HCO3 ABG Base Excess ABG Hemoglobin Oxyhemoglobin Sodium Potassium Chloride Carbon Dioxide BUN Creatinine Glucose POC Glucose 167 H Lactic Acid Calcium Ionized Calcium Phosphorus Magnesium Direct Bilirubin AST ALT Alkaline Phosphatase Lactate Dehydrogenase Troponin T C-Reactive Protein 15.80 H Total Protein Albumin Prealbumin Triglycerides Cholesterol LDL Cholesterol Direct HDL Cholesterol 25-OH Vitamin D Total PTH Intact Urine pH Urine WBC (Auto) Urine Creatinine Urine Total Protein Fluid Total Protein Vancomycin Trough Rheumatoid Factor Complement C4 Miscellaneous Test Crossmatch 10/11/16 10/11/16 10/11/16 11:40 15:49 23:57 WBC RBC Hgb Hct MCV MCH MCHC RDW Plt Count Lymph % (Auto) [place] % (Auto) Lymph # [place] # Baso # Seg Neutrophils % Seg Neuts % (Manual) Lymphocytes % (Manual) Monocytes % (Manual) Eosinophils % (Manual) Basophils % (Manual) Nucleated RBC % Seg Neutrophils # Seg Neutrophils # Man Lymphocytes # (Manual) Monocytes # (Manual) Eosinophils # (Manual) Basophils # (Manual) PT INR Fibrinogen dRVVT Confirm Interp Factor V Activity POC ABG pH POC ABG pCO2 POC ABG pO2 ABG pO2 ABG HCO3 ABG Base Excess ABG Hemoglobin Oxyhemoglobin Sodium Potassium Chloride Carbon Dioxide BUN Creatinine Glucose POC Glucose 139 H 168 H 161 H Lactic Acid Calcium Ionized Calcium Phosphorus Magnesium Direct Bilirubin AST ALT Alkaline Phosphatase Lactate Dehydrogenase Troponin T C-Reactive Protein Total Protein Albumin Prealbumin Triglycerides Cholesterol LDL Cholesterol Direct HDL Cholesterol 25-OH Vitamin D Total PTH Intact Urine pH Urine WBC (Auto) Urine Creatinine Urine Total Protein Fluid Total Protein Vancomycin Trough Rheumatoid Factor Complement C4 Miscellaneous Test Crossmatch 10/12/16 10/12/16 10/12/16 04:40 04:40 05:44 WBC 22.5 H RBC 2.88 L Hgb 8.8 L Hct 26.8 L MCV MCH MCHC RDW 17.8 H Plt Count Lymph % (Auto) [place] % (Auto) Lymph # [place] # Baso # Seg Neutrophils % Seg Neuts % (Manual) Lymphocytes % (Manual) Monocytes % (Manual) Eosinophils % (Manual) Basophils % (Manual) Nucleated RBC % Seg Neutrophils # Seg Neutrophils # Man Lymphocytes # (Manual) Monocytes # (Manual) Eosinophils # (Manual) Basophils # (Manual) PT INR Fibrinogen dRVVT Confirm Interp Factor V Activity POC ABG pH POC ABG pCO2 POC ABG pO2 ABG pO2 ABG HCO3 ABG Base Excess ABG Hemoglobin Oxyhemoglobin Sodium 134 L Potassium Chloride 93.0 L Carbon Dioxide BUN 74 H Creatinine 2.5 H Glucose 137 H POC Glucose 158 H Lactic Acid Calcium 8.2 L Ionized Calcium Phosphorus Magnesium Direct Bilirubin AST ALT Alkaline Phosphatase Lactate Dehydrogenase Troponin T C-Reactive Protein Total Protein Albumin Prealbumin Triglycerides Cholesterol LDL Cholesterol Direct HDL Cholesterol 25-OH Vitamin D Total PTH Intact Urine pH Urine WBC (Auto) Urine Creatinine Urine Total Protein Fluid Total Protein Vancomycin Trough Rheumatoid Factor Complement C4 Miscellaneous Test Crossmatch 10/12/16 10/12/16 10/12/16 12:27 18:18 23:46 WBC RBC Hgb Hct MCV MCH MCHC RDW Plt Count Lymph % (Auto) [place] % (Auto) Lymph # [place] # Baso # Seg Neutrophils % Seg Neuts % (Manual) Lymphocytes % (Manual) Monocytes % (Manual) Eosinophils % (Manual) Basophils % (Manual) Nucleated RBC % Seg Neutrophils # Seg Neutrophils # Man Lymphocytes # (Manual) Monocytes # (Manual) Eosinophils # (Manual) Basophils # (Manual) PT INR Fibrinogen dRVVT Confirm Interp Factor V Activity POC ABG pH POC ABG pCO2 POC ABG pO2 ABG pO2 ABG HCO3 ABG Base Excess ABG Hemoglobin Oxyhemoglobin Sodium Potassium Chloride Carbon Dioxide BUN Creatinine Glucose POC Glucose 153 H 140 H 150 H Lactic Acid Calcium Ionized Calcium Phosphorus Magnesium Direct Bilirubin AST ALT Alkaline Phosphatase Lactate Dehydrogenase Troponin T C-Reactive Protein Total Protein Albumin Prealbumin Triglycerides Cholesterol LDL Cholesterol Direct HDL Cholesterol 25-OH Vitamin D Total PTH Intact Urine pH Urine WBC (Auto) Urine Creatinine Urine Total Protein Fluid Total Protein Vancomycin Trough Rheumatoid Factor Complement C4 Miscellaneous Test Crossmatch 10/13/16 10/13/16 10/13/16 06:22 09:20 12:29 WBC RBC Hgb Hct MCV MCH MCHC RDW Plt Count Lymph % (Auto) [place] % (Auto) Lymph # [place] # Baso # Seg Neutrophils % Seg Neuts % (Manual) Lymphocytes % (Manual) Monocytes % (Manual) Eosinophils % (Manual) Basophils % (Manual) Nucleated RBC % Seg Neutrophils # Seg Neutrophils # Man Lymphocytes # (Manual) Monocytes # (Manual) Eosinophils # (Manual) Basophils # (Manual) PT INR Fibrinogen dRVVT Confirm Interp Factor V Activity POC ABG pH POC ABG pCO2 POC ABG pO2 ABG pO2 ABG HCO3 ABG Base Excess ABG Hemoglobin Oxyhemoglobin Sodium Potassium Chloride Carbon Dioxide BUN Creatinine Glucose POC Glucose 165 H 193 H Lactic Acid Calcium Ionized Calcium Phosphorus Magnesium Direct Bilirubin AST ALT Alkaline Phosphatase Lactate Dehydrogenase Troponin T C-Reactive Protein Total Protein Albumin Prealbumin Triglycerides Cholesterol LDL Cholesterol Direct HDL Cholesterol 25-OH Vitamin D Total PTH Intact Urine pH Urine WBC (Auto) Urine Creatinine Urine Total Protein Fluid Total Protein Vancomycin Trough Rheumatoid Factor Complement C4 Miscellaneous Test Flexitest 1 H Crossmatch 10/13/16 10/13/16 10/13/16 18:09 Unknown Unknown WBC 23.4 H RBC 2.83 L Hgb 8.7 L Hct 26.1 L MCV MCH MCHC RDW 18.1 H Plt Count Lymph % (Auto) [place] % (Auto) Lymph # [place] # Baso # Seg Neutrophils % Seg Neuts % (Manual) Lymphocytes % (Manual) Monocytes % (Manual) Eosinophils % (Manual) Basophils % (Manual) Nucleated RBC % Seg Neutrophils # Seg Neutrophils # Man Lymphocytes # (Manual) Monocytes # (Manual) Eosinophils # (Manual) Basophils # (Manual) PT INR Fibrinogen dRVVT Confirm Interp Factor V Activity POC ABG pH POC ABG pCO2 POC ABG pO2 ABG pO2 ABG HCO3 ABG Base Excess ABG Hemoglobin Oxyhemoglobin Sodium Potassium Chloride 95.8 L Carbon Dioxide BUN 82 H Creatinine 2.6 H Glucose 152 H POC Glucose 166 H Lactic Acid Calcium Ionized Calcium Phosphorus Magnesium Direct Bilirubin AST ALT Alkaline Phosphatase Lactate Dehydrogenase Troponin T C-Reactive Protein Total Protein Albumin Prealbumin Triglycerides Cholesterol LDL Cholesterol Direct HDL Cholesterol 25-OH Vitamin D Total PTH Intact Urine pH Urine WBC (Auto) Urine Creatinine Urine Total Protein Fluid Total Protein Vancomycin Trough Rheumatoid Factor Complement C4 Miscellaneous Test Crossmatch 10/14/16 10/14/16 10/14/16 05:38 06:35 08:10 WBC 20.7 H RBC 2.81 L Hgb 8.4 L Hct 27.2 L MCV MCH MCHC RDW 19.4 H Plt Count Lymph % (Auto) [place] % (Auto) Lymph # [place] # Baso # Seg Neutrophils % Seg Neuts % (Manual) Lymphocytes % (Manual) Monocytes % (Manual) Eosinophils % (Manual) Basophils % (Manual) Nucleated RBC % Seg Neutrophils # Seg Neutrophils # Man Lymphocytes # (Manual) Monocytes # (Manual) Eosinophils # (Manual) Basophils # (Manual) PT INR Fibrinogen dRVVT Confirm Interp Factor V Activity POC ABG pH POC ABG pCO2 POC ABG pO2 ABG pO2 ABG HCO3 ABG Base Excess ABG Hemoglobin Oxyhemoglobin Sodium Potassium Chloride Carbon Dioxide BUN 58 H Creatinine 1.9 H Glucose 169 H POC Glucose 195 H Lactic Acid Calcium Ionized Calcium Phosphorus Magnesium Direct Bilirubin AST ALT Alkaline Phosphatase Lactate Dehydrogenase Troponin T C-Reactive Protein Total Protein Albumin Prealbumin Triglycerides Cholesterol LDL Cholesterol Direct HDL Cholesterol 25-OH Vitamin D Total PTH Intact Urine pH Urine WBC (Auto) Urine Creatinine Urine Total Protein Fluid Total Protein Vancomycin Trough Rheumatoid Factor Complement C4 Miscellaneous Test Crossmatch 10/14/16 10/14/16 10/14/16 11:44 17:13 23:28 WBC RBC Hgb Hct MCV MCH MCHC RDW Plt Count Lymph % (Auto) [place] % (Auto) Lymph # [place] # Baso # Seg Neutrophils % Seg Neuts % (Manual) Lymphocytes % (Manual) Monocytes % (Manual) Eosinophils % (Manual) Basophils % (Manual) Nucleated RBC % Seg Neutrophils # Seg Neutrophils # Man Lymphocytes # (Manual) Monocytes # (Manual) Eosinophils # (Manual) Basophils # (Manual) PT INR Fibrinogen dRVVT Confirm Interp Factor V Activity POC ABG pH POC ABG pCO2 POC ABG pO2 ABG pO2 ABG HCO3 ABG Base Excess ABG Hemoglobin Oxyhemoglobin Sodium Potassium Chloride Carbon Dioxide BUN Creatinine Glucose POC Glucose 174 H 121 H 151 H Lactic Acid Calcium Ionized Calcium Phosphorus Magnesium Direct Bilirubin AST ALT Alkaline Phosphatase Lactate Dehydrogenase Troponin T C-Reactive Protein Total Protein Albumin Prealbumin Triglycerides Cholesterol LDL Cholesterol Direct HDL Cholesterol 25-OH Vitamin D Total PTH Intact Urine pH Urine WBC (Auto) Urine Creatinine Urine Total Protein Fluid Total Protein Vancomycin Trough Rheumatoid Factor Complement C4 Miscellaneous Test Crossmatch 10/15/16 10/15/16 10/15/16 05:06 12:26 17:48 WBC RBC Hgb Hct MCV MCH MCHC RDW Plt Count Lymph % (Auto) [place] % (Auto) Lymph # [place] # Baso # Seg Neutrophils % Seg Neuts % (Manual) Lymphocytes % (Manual) Monocytes % (Manual) Eosinophils % (Manual) Basophils % (Manual) Nucleated RBC % Seg Neutrophils # Seg Neutrophils # Man Lymphocytes # (Manual) Monocytes # (Manual) Eosinophils # (Manual) Basophils # (Manual) PT INR Fibrinogen dRVVT Confirm Interp Factor V Activity POC ABG pH POC ABG pCO2 POC ABG pO2 ABG pO2 ABG HCO3 ABG Base Excess ABG Hemoglobin Oxyhemoglobin Sodium Potassium Chloride Carbon Dioxide BUN Creatinine Glucose POC Glucose 151 H 149 H 153 H Lactic Acid Calcium Ionized Calcium Phosphorus Magnesium Direct Bilirubin AST ALT Alkaline Phosphatase Lactate Dehydrogenase Troponin T C-Reactive Protein Total Protein Albumin Prealbumin Triglycerides Cholesterol LDL Cholesterol Direct HDL Cholesterol 25-OH Vitamin D Total PTH Intact Urine pH Urine WBC (Auto) Urine Creatinine Urine Total Protein Fluid Total Protein Vancomycin Trough Rheumatoid Factor Complement C4 Miscellaneous Test Crossmatch 10/15/16 10/15/16 10/16/16 Unknown Unknown 00:02 WBC 23.4 H RBC 2.78 L Hgb 8.5 L Hct 25.7 L MCV MCH MCHC RDW 18.7 H Plt Count Lymph % (Auto) [place] % (Auto) Lymph # [place] # Baso # Seg Neutrophils % Seg Neuts % (Manual) Lymphocytes % (Manual) Monocytes % (Manual) Eosinophils % (Manual) Basophils % (Manual) Nucleated RBC % Seg Neutrophils # Seg Neutrophils # Man Lymphocytes # (Manual) Monocytes # (Manual) Eosinophils # (Manual) Basophils # (Manual) PT INR Fibrinogen dRVVT Confirm Interp Factor V Activity POC ABG pH POC ABG pCO2 POC ABG pO2 ABG pO2 ABG HCO3 ABG Base Excess ABG Hemoglobin Oxyhemoglobin Sodium Potassium Chloride Carbon Dioxide BUN 73 H Creatinine 2.3 H Glucose 120 H POC Glucose 137 H Lactic Acid Calcium Ionized Calcium Phosphorus Magnesium Direct Bilirubin AST ALT Alkaline Phosphatase Lactate Dehydrogenase Troponin T C-Reactive Protein Total Protein Albumin Prealbumin Triglycerides Cholesterol LDL Cholesterol Direct HDL Cholesterol 25-OH Vitamin D Total PTH Intact Urine pH Urine WBC (Auto) Urine Creatinine Urine Total Protein Fluid Total Protein Vancomycin Trough Rheumatoid Factor Complement C4 Miscellaneous Test Crossmatch 10/16/16 10/16/16 10/16/16 05:44 06:25 06:25 WBC 22.5 H RBC 2.76 L Hgb 8.3 L Hct 25.2 L MCV MCH MCHC RDW 18.3 H Plt Count Lymph % (Auto) [place] % (Auto) Lymph # [place] # Baso # Seg Neutrophils % Seg Neuts % (Manual) Lymphocytes % (Manual) Monocytes % (Manual) Eosinophils % (Manual) Basophils % (Manual) Nucleated RBC % Seg Neutrophils # Seg Neutrophils # Man Lymphocytes # (Manual) Monocytes # (Manual) Eosinophils # (Manual) Basophils # (Manual) PT INR Fibrinogen dRVVT Confirm Interp Factor V Activity POC ABG pH POC ABG pCO2 POC ABG pO2 ABG pO2 ABG HCO3 ABG Base Excess ABG Hemoglobin Oxyhemoglobin Sodium Potassium Chloride Carbon Dioxide BUN 92 H Creatinine 3.0 H Glucose 138 H POC Glucose 110 H Lactic Acid Calcium Ionized Calcium Phosphorus Magnesium Direct Bilirubin AST ALT Alkaline Phosphatase Lactate Dehydrogenase Troponin T C-Reactive Protein Total Protein Albumin Prealbumin Triglycerides Cholesterol LDL Cholesterol Direct HDL Cholesterol 25-OH Vitamin D Total PTH Intact Urine pH Urine WBC (Auto) Urine Creatinine Urine Total Protein Fluid Total Protein Vancomycin Trough Rheumatoid Factor Complement C4 Miscellaneous Test Crossmatch 10/16/16 10/16/16 10/16/16 11:27 11:48 17:36 WBC RBC Hgb Hct MCV MCH MCHC RDW Plt Count Lymph % (Auto) [place] % (Auto) Lymph # [place] # Baso # Seg Neutrophils % Seg Neuts % (Manual) Lymphocytes % (Manual) Monocytes % (Manual) Eosinophils % (Manual) Basophils % (Manual) Nucleated RBC % Seg Neutrophils # Seg Neutrophils # Man Lymphocytes # (Manual) Monocytes # (Manual) Eosinophils # (Manual) Basophils # (Manual) PT INR Fibrinogen dRVVT Confirm Interp Factor V Activity POC ABG pH 7.582 H POC ABG pCO2 27.4 L POC ABG pO2 110 H ABG pO2 ABG HCO3 ABG Base Excess ABG Hemoglobin Oxyhemoglobin Sodium Potassium Chloride Carbon Dioxide BUN Creatinine Glucose POC Glucose 121 H 133 H Lactic Acid Calcium Ionized Calcium Phosphorus Magnesium Direct Bilirubin AST ALT Alkaline Phosphatase Lactate Dehydrogenase Troponin T C-Reactive Protein Total Protein Albumin Prealbumin Triglycerides Cholesterol LDL Cholesterol Direct HDL Cholesterol 25-OH Vitamin D Total PTH Intact Urine pH Urine WBC (Auto) Urine Creatinine Urine Total Protein Fluid Total Protein Vancomycin Trough Rheumatoid Factor Complement C4 Miscellaneous Test Crossmatch 10/16/16 10/17/16 10/17/16 20:48 04:24 04:24 WBC 21.4 H RBC 2.72 L Hgb 8.0 L Hct 25.2 L MCV MCH MCHC RDW 18.0 H Plt Count Lymph % (Auto) [place] % (Auto) Lymph # [place] # Baso # Seg Neutrophils % Seg Neuts % (Manual) Lymphocytes % (Manual) Monocytes % (Manual) Eosinophils % (Manual) Basophils % (Manual) Nucleated RBC % Seg Neutrophils # Seg Neutrophils # Man Lymphocytes # (Manual) Monocytes # (Manual) Eosinophils # (Manual) Basophils # (Manual) PT INR Fibrinogen dRVVT Confirm Interp Factor V Activity POC ABG pH 7.561 H POC ABG pCO2 24.4 L POC ABG pO2 77 L ABG pO2 ABG HCO3 ABG Base Excess ABG Hemoglobin Oxyhemoglobin Sodium 148 H Potassium Chloride Carbon Dioxide BUN 104 H Creatinine 3.0 H Glucose 149 H POC Glucose Lactic Acid Calcium Ionized Calcium Phosphorus Magnesium Direct Bilirubin AST ALT Alkaline Phosphatase 138 H Lactate Dehydrogenase Troponin T C-Reactive Protein Total Protein 6.2 L Albumin 1.5 L Prealbumin Triglycerides Cholesterol LDL Cholesterol Direct HDL Cholesterol 25-OH Vitamin D Total PTH Intact Urine pH Urine WBC (Auto) Urine Creatinine Urine Total Protein Fluid Total Protein Vancomycin Trough Rheumatoid Factor Complement C4 Miscellaneous Test Crossmatch 10/17/16 10/17/16 10/17/16 06:02 12:17 17:14 WBC RBC Hgb Hct MCV MCH MCHC RDW Plt Count Lymph % (Auto) [place] % (Auto) Lymph # [place] # Baso # Seg Neutrophils % Seg Neuts % (Manual) Lymphocytes % (Manual) Monocytes % (Manual) Eosinophils % (Manual) Basophils % (Manual) Nucleated RBC % Seg Neutrophils # Seg Neutrophils # Man Lymphocytes # (Manual) Monocytes # (Manual) Eosinophils # (Manual) Basophils # (Manual) PT INR Fibrinogen dRVVT Confirm Interp Factor V Activity POC ABG pH POC ABG pCO2 POC ABG pO2 ABG pO2 ABG HCO3 ABG Base Excess ABG Hemoglobin Oxyhemoglobin Sodium Potassium Chloride Carbon Dioxide BUN Creatinine Glucose POC Glucose 170 H 167 H 126 H Lactic Acid Calcium Ionized Calcium Phosphorus Magnesium Direct Bilirubin AST ALT Alkaline Phosphatase Lactate Dehydrogenase Troponin T C-Reactive Protein Total Protein Albumin Prealbumin Triglycerides Cholesterol LDL Cholesterol Direct HDL Cholesterol 25-OH Vitamin D Total PTH Intact Urine pH Urine WBC (Auto) Urine Creatinine Urine Total Protein Fluid Total Protein Vancomycin Trough Rheumatoid Factor Complement C4 Miscellaneous Test Crossmatch 10/17/16 10/18/16 10/18/16 23:17 04:00 04:00 WBC 20.7 H RBC 2.47 L Hgb 7.4 L Hct 22.9 L MCV MCH MCHC RDW 17.5 H Plt Count Lymph % (Auto) [place] % (Auto) Lymph # [place] # Baso # Seg Neutrophils % Seg Neuts % (Manual) Lymphocytes % (Manual) Monocytes % (Manual) Eosinophils % (Manual) Basophils % (Manual) Nucleated RBC % Seg Neutrophils # Seg Neutrophils # Man Lymphocytes # (Manual) Monocytes # (Manual) Eosinophils # (Manual) Basophils # (Manual) PT INR Fibrinogen dRVVT Confirm Interp Factor V Activity POC ABG pH POC ABG pCO2 POC ABG pO2 ABG pO2 ABG HCO3 ABG Base Excess ABG Hemoglobin Oxyhemoglobin Sodium 149 H Potassium Chloride 107.9 H Carbon Dioxide 20 L BUN 117 H Creatinine 3.2 H Glucose 119 H POC Glucose 121 H Lactic Acid Calcium Ionized Calcium Phosphorus Magnesium Direct Bilirubin AST ALT Alkaline Phosphatase Lactate Dehydrogenase Troponin T C-Reactive Protein Total Protein Albumin Prealbumin Triglycerides Cholesterol LDL Cholesterol Direct HDL Cholesterol 25-OH Vitamin D Total PTH Intact Urine pH Urine WBC (Auto) Urine Creatinine Urine Total Protein Fluid Total Protein Vancomycin Trough Rheumatoid Factor Complement C4 Miscellaneous Test Crossmatch 10/18/16 10/18/16 10/18/16 05:23 10:46 17:30 WBC RBC Hgb Hct MCV MCH MCHC RDW Plt Count Lymph % (Auto) [place] % (Auto) Lymph # [place] # Baso # Seg Neutrophils % Seg Neuts % (Manual) Lymphocytes % (Manual) Monocytes % (Manual) Eosinophils % (Manual) Basophils % (Manual) Nucleated RBC % Seg Neutrophils # Seg Neutrophils # Man Lymphocytes # (Manual) Monocytes # (Manual) Eosinophils # (Manual) Basophils # (Manual) PT INR Fibrinogen dRVVT Confirm Interp Factor V Activity POC ABG pH POC ABG pCO2 POC ABG pO2 ABG pO2 ABG HCO3 ABG Base Excess ABG Hemoglobin Oxyhemoglobin Sodium Potassium Chloride Carbon Dioxide BUN Creatinine Glucose POC Glucose 119 H 155 H 124 H Lactic Acid Calcium Ionized Calcium Phosphorus Magnesium Direct Bilirubin AST ALT Alkaline Phosphatase Lactate Dehydrogenase Troponin T C-Reactive Protein Total Protein Albumin Prealbumin Triglycerides Cholesterol LDL Cholesterol Direct HDL Cholesterol 25-OH Vitamin D Total PTH Intact Urine pH Urine WBC (Auto) Urine Creatinine Urine Total Protein Fluid Total Protein Vancomycin Trough Rheumatoid Factor Complement C4 Miscellaneous Test Crossmatch 10/19/16 10/19/16 10/19/16 04:00 04:00 05:25 WBC 17.4 H RBC 2.54 L Hgb 7.7 L Hct 23.6 L MCV MCH MCHC RDW 17.3 H Plt Count Lymph % (Auto) [place] % (Auto) Lymph # [place] # Baso # Seg Neutrophils % Seg Neuts % (Manual) Lymphocytes % (Manual) Monocytes % (Manual) Eosinophils % (Manual) Basophils % (Manual) Nucleated RBC % Seg Neutrophils # Seg Neutrophils # Man Lymphocytes # (Manual) Monocytes # (Manual) Eosinophils # (Manual) Basophils # (Manual) PT INR Fibrinogen dRVVT Confirm Interp Factor V Activity POC ABG pH POC ABG pCO2 POC ABG pO2 ABG pO2 ABG HCO3 ABG Base Excess ABG Hemoglobin Oxyhemoglobin Sodium Potassium Chloride Carbon Dioxide BUN 72 H Creatinine 2.1 H Glucose 116 H POC Glucose 119 H Lactic Acid Calcium Ionized Calcium Phosphorus Magnesium Direct Bilirubin AST ALT Alkaline Phosphatase Lactate Dehydrogenase Troponin T C-Reactive Protein Total Protein Albumin Prealbumin Triglycerides Cholesterol LDL Cholesterol Direct HDL Cholesterol 25-OH Vitamin D Total PTH Intact Urine pH Urine WBC (Auto) Urine Creatinine Urine Total Protein Fluid Total Protein Vancomycin Trough Rheumatoid Factor Complement C4 Miscellaneous Test Crossmatch 10/19/16 10/19/16 10/20/16 11:46 23:59 06:00 WBC RBC Hgb Hct MCV MCH MCHC RDW Plt Count Lymph % (Auto) [place] % (Auto) Lymph # [place] # Baso # Seg Neutrophils % Seg Neuts % (Manual) Lymphocytes % (Manual) Monocytes % (Manual) Eosinophils % (Manual) Basophils % (Manual) Nucleated RBC % Seg Neutrophils # Seg Neutrophils # Man Lymphocytes # (Manual) Monocytes # (Manual) Eosinophils # (Manual) Basophils # (Manual) PT INR Fibrinogen dRVVT Confirm Interp Factor V Activity POC ABG pH POC ABG pCO2 POC ABG pO2 ABG pO2 ABG HCO3 ABG Base Excess ABG Hemoglobin Oxyhemoglobin Sodium Potassium Chloride Carbon Dioxide 17 L BUN 94 H Creatinine 2.7 H Glucose POC Glucose 116 H 117 H Lactic Acid Calcium Ionized Calcium Phosphorus Magnesium Direct Bilirubin AST ALT Alkaline Phosphatase Lactate Dehydrogenase Troponin T C-Reactive Protein Total Protein Albumin Prealbumin Triglycerides Cholesterol LDL Cholesterol Direct HDL Cholesterol 25-OH Vitamin D Total PTH Intact Urine pH Urine WBC (Auto) Urine Creatinine Urine Total Protein Fluid Total Protein Vancomycin Trough Rheumatoid Factor Complement C4 Miscellaneous Test Crossmatch 10/20/16 10/20/16 10/20/16 06:00 11:49 16:00 WBC 19.7 H RBC 2.51 L Hgb 7.7 L Hct 23.5 L MCV MCH MCHC RDW 17.5 H Plt Count Lymph % (Auto) [place] % (Auto) Lymph # [place] # Baso # Seg Neutrophils % Seg Neuts % (Manual) Lymphocytes % (Manual) Monocytes % (Manual) Eosinophils % (Manual) Basophils % (Manual) Nucleated RBC % Seg Neutrophils # Seg Neutrophils # Man Lymphocytes # (Manual) Monocytes # (Manual) Eosinophils # (Manual) Basophils # (Manual) PT INR Fibrinogen dRVVT Confirm Interp Factor V Activity POC ABG pH POC ABG pCO2 POC ABG pO2 ABG pO2 ABG HCO3 ABG Base Excess ABG Hemoglobin Oxyhemoglobin Sodium Potassium Chloride Carbon Dioxide BUN Creatinine Glucose POC Glucose 117 H Lactic Acid Calcium Ionized Calcium Phosphorus Magnesium Direct Bilirubin AST ALT Alkaline Phosphatase Lactate Dehydrogenase Troponin T C-Reactive Protein Total Protein Albumin Prealbumin Triglycerides Cholesterol LDL Cholesterol Direct HDL Cholesterol 25-OH Vitamin D Total PTH Intact Urine pH Urine WBC (Auto) Urine Creatinine Urine Total Protein Fluid Total Protein Vancomycin Trough Rheumatoid Factor Complement C4 Miscellaneous Test Flexitest 1 H Crossmatch 10/20/16 10/20/16 10/21/16 18:36 23:39 04:00 WBC RBC Hgb Hct MCV MCH MCHC RDW Plt Count Lymph % (Auto) [place] % (Auto) Lymph # [place] # Baso # Seg Neutrophils % Seg Neuts % (Manual) Lymphocytes % (Manual) Monocytes % (Manual) Eosinophils % (Manual) Basophils % (Manual) Nucleated RBC % Seg Neutrophils # Seg Neutrophils # Man Lymphocytes # (Manual) Monocytes # (Manual) Eosinophils # (Manual) Basophils # (Manual) PT INR Fibrinogen dRVVT Confirm Interp Factor V Activity POC ABG pH POC ABG pCO2 POC ABG pO2 ABG pO2 ABG HCO3 ABG Base Excess ABG Hemoglobin Oxyhemoglobin Sodium Potassium 5.4 H D Chloride Carbon Dioxide 15 L BUN 110 H Creatinine 3.0 H Glucose POC Glucose 127 H 114 H Lactic Acid Calcium Ionized Calcium Phosphorus Magnesium Direct Bilirubin AST ALT Alkaline Phosphatase Lactate Dehydrogenase Troponin T C-Reactive Protein Total Protein Albumin Prealbumin Triglycerides Cholesterol LDL Cholesterol Direct HDL Cholesterol 25-OH Vitamin D Total PTH Intact Urine pH Urine WBC (Auto) Urine Creatinine Urine Total Protein Fluid Total Protein Vancomycin Trough Rheumatoid Factor Complement C4 Miscellaneous Test Crossmatch 10/21/16 10/21/16 10/22/16 05:54 23:46 05:18 WBC RBC Hgb Hct MCV MCH MCHC RDW Plt Count Lymph % (Auto) [place] % (Auto) Lymph # [place] # Baso # Seg Neutrophils % Seg Neuts % (Manual) Lymphocytes % (Manual) Monocytes % (Manual) Eosinophils % (Manual) Basophils % (Manual) Nucleated RBC % Seg Neutrophils # Seg Neutrophils # Man Lymphocytes # (Manual) Monocytes # (Manual) Eosinophils # (Manual) Basophils # (Manual) PT INR Fibrinogen dRVVT Confirm Interp Factor V Activity POC ABG pH POC ABG pCO2 POC ABG pO2 ABG pO2 ABG HCO3 ABG Base Excess ABG Hemoglobin Oxyhemoglobin Sodium Potassium Chloride Carbon Dioxide BUN Creatinine Glucose POC Glucose 119 H 108 H 109 H Lactic Acid Calcium Ionized Calcium Phosphorus Magnesium Direct Bilirubin AST ALT Alkaline Phosphatase Lactate Dehydrogenase Troponin T C-Reactive Protein Total Protein Albumin Prealbumin Triglycerides Cholesterol LDL Cholesterol Direct HDL Cholesterol 25-OH Vitamin D Total PTH Intact Urine pH Urine WBC (Auto) Urine Creatinine Urine Total Protein Fluid Total Protein Vancomycin Trough Rheumatoid Factor Complement C4 Miscellaneous Test Crossmatch 10/22/16 10/22/16 10/22/16 06:40 06:40 06:40 WBC 14.0 H RBC 2.03 L Hgb 7.0 L Hct 20.5 L MCV 98 H MCH 34 H MCHC 35 H RDW 17.8 H Plt Count Lymph % (Auto) [place] % (Auto) 9.9 H Lymph # [place] # 1.4 H Baso # 0.2 H Seg Neutrophils % 72.0 H Seg Neuts % (Manual) Lymphocytes % (Manual) Monocytes % (Manual) Eosinophils % (Manual) Basophils % (Manual) Nucleated RBC % Seg Neutrophils # 10.0 H Seg Neutrophils # Man Lymphocytes # (Manual) Monocytes # (Manual) Eosinophils # (Manual) Basophils # (Manual) PT INR Fibrinogen dRVVT Confirm Interp Factor V Activity POC ABG pH POC ABG pCO2 POC ABG pO2 ABG pO2 ABG HCO3 ABG Base Excess ABG Hemoglobin Oxyhemoglobin Sodium 130 L D Potassium Chloride 92.4 L Carbon Dioxide 20 L BUN 50 H Creatinine 1.6 H Glucose 589 H* POC Glucose Lactic Acid Calcium 7.8 L D Ionized Calcium Phosphorus Magnesium 1.60 L Direct Bilirubin AST ALT Alkaline Phosphatase Lactate Dehydrogenase Troponin T C-Reactive Protein Total Protein Albumin Prealbumin Triglycerides Cholesterol LDL Cholesterol Direct HDL Cholesterol 25-OH Vitamin D Total PTH Intact Urine pH Urine WBC (Auto) Urine Creatinine Urine Total Protein Fluid Total Protein Vancomycin Trough Rheumatoid Factor Complement C4 Miscellaneous Test Crossmatch 10/22/16 10/22/16 10/22/16 11:39 16:44 23:36 WBC RBC Hgb Hct MCV MCH MCHC RDW Plt Count Lymph % (Auto) [place] % (Auto) Lymph # [place] # Baso # Seg Neutrophils % Seg Neuts % (Manual) Lymphocytes % (Manual) Monocytes % (Manual) Eosinophils % (Manual) Basophils % (Manual) Nucleated RBC % Seg Neutrophils # Seg Neutrophils # Man Lymphocytes # (Manual) Monocytes # (Manual) Eosinophils # (Manual) Basophils # (Manual) PT INR Fibrinogen dRVVT Confirm Interp Factor V Activity POC ABG pH POC ABG pCO2 POC ABG pO2 ABG pO2 ABG HCO3 ABG Base Excess ABG Hemoglobin Oxyhemoglobin Sodium Potassium Chloride Carbon Dioxide BUN Creatinine Glucose POC Glucose 142 H 163 H 123 H Lactic Acid Calcium Ionized Calcium Phosphorus Magnesium Direct Bilirubin AST ALT Alkaline Phosphatase Lactate Dehydrogenase Troponin T C-Reactive Protein Total Protein Albumin Prealbumin Triglycerides Cholesterol LDL Cholesterol Direct HDL Cholesterol 25-OH Vitamin D Total PTH Intact Urine pH Urine WBC (Auto) Urine Creatinine Urine Total Protein Fluid Total Protein Vancomycin Trough Rheumatoid Factor Complement C4 Miscellaneous Test Crossmatch 10/23/16 10/23/16 10/23/16 04:58 06:00 12:12 WBC RBC Hgb Hct MCV MCH MCHC RDW Plt Count Lymph % (Auto) [place] % (Auto) Lymph # [place] # Baso # Seg Neutrophils % Seg Neuts % (Manual) Lymphocytes % (Manual) Monocytes % (Manual) Eosinophils % (Manual) Basophils % (Manual) Nucleated RBC % Seg Neutrophils # Seg Neutrophils # Man Lymphocytes # (Manual) Monocytes # (Manual) Eosinophils # (Manual) Basophils # (Manual) PT INR Fibrinogen dRVVT Confirm Interp Factor V Activity POC ABG pH POC ABG pCO2 POC ABG pO2 ABG pO2 ABG HCO3 ABG Base Excess ABG Hemoglobin Oxyhemoglobin Sodium 133 L Potassium 3.5 L Chloride 96.1 L Carbon Dioxide 18 L BUN 76 H Creatinine 2.1 H Glucose POC Glucose 133 H 138 H Lactic Acid Calcium 8.3 L Ionized Calcium Phosphorus Magnesium Direct Bilirubin AST ALT Alkaline Phosphatase Lactate Dehydrogenase Troponin T C-Reactive Protein Total Protein Albumin Prealbumin Triglycerides Cholesterol LDL Cholesterol Direct HDL Cholesterol 25-OH Vitamin D Total PTH Intact Urine pH Urine WBC (Auto) Urine Creatinine Urine Total Protein Fluid Total Protein Vancomycin Trough Rheumatoid Factor Complement C4 Miscellaneous Test Crossmatch 10/23/16 10/23/16 10/24/16 16:53 23:37 04:00 WBC RBC Hgb Hct MCV MCH MCHC RDW Plt Count Lymph % (Auto) [place] % (Auto) Lymph # [place] # Baso # Seg Neutrophils % Seg Neuts % (Manual) Lymphocytes % (Manual) Monocytes % (Manual) Eosinophils % (Manual) Basophils % (Manual) Nucleated RBC % Seg Neutrophils # Seg Neutrophils # Man Lymphocytes # (Manual) Monocytes # (Manual) Eosinophils # (Manual) Basophils # (Manual) PT INR Fibrinogen dRVVT Confirm Interp Factor V Activity POC ABG pH POC ABG pCO2 POC ABG pO2 ABG pO2 ABG HCO3 ABG Base Excess ABG Hemoglobin Oxyhemoglobin Sodium 131 L Potassium Chloride 94.5 L Carbon Dioxide 19 L BUN 97 H Creatinine 2.6 H Glucose 110 H POC Glucose 125 H 123 H Lactic Acid Calcium 8.3 L Ionized Calcium Phosphorus Magnesium Direct Bilirubin AST ALT Alkaline Phosphatase Lactate Dehydrogenase Troponin T C-Reactive Protein Total Protein Albumin Prealbumin Triglycerides Cholesterol LDL Cholesterol Direct HDL Cholesterol 25-OH Vitamin D Total PTH Intact Urine pH Urine WBC (Auto) Urine Creatinine Urine Total Protein Fluid Total Protein Vancomycin Trough Rheumatoid Factor Complement C4 Miscellaneous Test Crossmatch 10/24/16 10/24/16 10/24/16 07:49 11:39 17:52 WBC RBC Hgb 6.0 L Hct 19.7 L* MCV MCH MCHC RDW Plt Count Lymph % (Auto) [place] % (Auto) Lymph # [place] # Baso # Seg Neutrophils % Seg Neuts % (Manual) Lymphocytes % (Manual) Monocytes % (Manual) Eosinophils % (Manual) Basophils % (Manual) Nucleated RBC % Seg Neutrophils # Seg Neutrophils # Man Lymphocytes # (Manual) Monocytes # (Manual) Eosinophils # (Manual) Basophils # (Manual) PT INR Fibrinogen dRVVT Confirm Interp Factor V Activity POC ABG pH POC ABG pCO2 POC ABG pO2 ABG pO2 ABG HCO3 ABG Base Excess ABG Hemoglobin Oxyhemoglobin Sodium Potassium Chloride Carbon Dioxide BUN Creatinine Glucose POC Glucose 106 H 158 H Lactic Acid Calcium Ionized Calcium Phosphorus Magnesium Direct Bilirubin AST ALT Alkaline Phosphatase Lactate Dehydrogenase Troponin T C-Reactive Protein Total Protein Albumin Prealbumin Triglycerides Cholesterol LDL Cholesterol Direct HDL Cholesterol 25-OH Vitamin D Total PTH Intact Urine pH Urine WBC (Auto) Urine Creatinine Urine Total Protein Fluid Total Protein Vancomycin Trough Rheumatoid Factor Complement C4 Miscellaneous Test Crossmatch 10/24/16 10/24/16 10/24/16 20:00 22:27 Unknown WBC RBC Hgb 9.4 L D Hct 27.5 L D MCV MCH MCHC RDW Plt Count Lymph % (Auto) [place] % (Auto) Lymph # [place] # Baso # Seg Neutrophils % Seg Neuts % (Manual) Lymphocytes % (Manual) Monocytes % (Manual) Eosinophils % (Manual) Basophils % (Manual) Nucleated RBC % Seg Neutrophils # Seg Neutrophils # Man Lymphocytes # (Manual) Monocytes # (Manual) Eosinophils # (Manual) Basophils # (Manual) PT INR Fibrinogen dRVVT Confirm Interp Factor V Activity POC ABG pH POC ABG pCO2 POC ABG pO2 ABG pO2 ABG HCO3 ABG Base Excess ABG Hemoglobin Oxyhemoglobin Sodium Potassium Chloride Carbon Dioxide BUN Creatinine Glucose POC Glucose 125 H Lactic Acid Calcium Ionized Calcium Phosphorus Magnesium Direct Bilirubin AST ALT Alkaline Phosphatase Lactate Dehydrogenase Troponin T C-Reactive Protein Total Protein Albumin Prealbumin Triglycerides Cholesterol LDL Cholesterol Direct HDL Cholesterol 25-OH Vitamin D Total PTH Intact Urine pH Urine WBC (Auto) Urine Creatinine Urine Total Protein Fluid Total Protein Vancomycin Trough Rheumatoid Factor Complement C4 Miscellaneous Test Crossmatch See Detail 10/25/16 10/25/16 10/25/16 04:00 04:00 04:00 WBC 14.2 H RBC 2.98 L Hgb 9.0 L Hct 26.2 L MCV MCH MCHC RDW 16.6 H Plt Count Lymph % (Auto) [place] % (Auto) 10.7 H Lymph # [place] # 1.5 H Baso # Seg Neutrophils % 73.6 H Seg Neuts % (Manual) Lymphocytes % (Manual) Monocytes % (Manual) Eosinophils % (Manual) Basophils % (Manual) Nucleated RBC % Seg Neutrophils # 10.5 H Seg Neutrophils # Man Lymphocytes # (Manual) Monocytes # (Manual) Eosinophils # (Manual) Basophils # (Manual) PT INR Fibrinogen dRVVT Confirm Interp Factor V Activity POC ABG pH POC ABG pCO2 POC ABG pO2 ABG pO2 ABG HCO3 ABG Base Excess ABG Hemoglobin Oxyhemoglobin Sodium 132 L Potassium Chloride 94.7 L Carbon Dioxide BUN 51 H Creatinine 1.6 H Glucose 130 H POC Glucose Lactic Acid Calcium 8.3 L Ionized Calcium Phosphorus 1.60 L D Magnesium Direct Bilirubin AST ALT Alkaline Phosphatase Lactate Dehydrogenase Troponin T C-Reactive Protein Total Protein Albumin Prealbumin Triglycerides Cholesterol LDL Cholesterol Direct HDL Cholesterol 25-OH Vitamin D Total PTH Intact Urine pH Urine WBC (Auto) Urine Creatinine Urine Total Protein Fluid Total Protein Vancomycin Trough Rheumatoid Factor Complement C4 Miscellaneous Test Crossmatch 10/25/16 10/25/16 10/25/16 04:32 11:48 17:22 WBC RBC Hgb Hct MCV MCH MCHC RDW Plt Count Lymph % (Auto) [place] % (Auto) Lymph # [place] # Baso # Seg Neutrophils % Seg Neuts % (Manual) Lymphocytes % (Manual) Monocytes % (Manual) Eosinophils % (Manual) Basophils % (Manual) Nucleated RBC % Seg Neutrophils # Seg Neutrophils # Man Lymphocytes # (Manual) Monocytes # (Manual) Eosinophils # (Manual) Basophils # (Manual) PT INR Fibrinogen dRVVT Confirm Interp Factor V Activity POC ABG pH POC ABG pCO2 POC ABG pO2 ABG pO2 ABG HCO3 ABG Base Excess ABG Hemoglobin Oxyhemoglobin Sodium Potassium Chloride Carbon Dioxide BUN Creatinine Glucose POC Glucose 124 H 171 H 120 H Lactic Acid Calcium Ionized Calcium Phosphorus Magnesium Direct Bilirubin AST ALT Alkaline Phosphatase Lactate Dehydrogenase Troponin T C-Reactive Protein Total Protein Albumin Prealbumin Triglycerides Cholesterol LDL Cholesterol Direct HDL Cholesterol 25-OH Vitamin D Total PTH Intact Urine pH Urine WBC (Auto) Urine Creatinine Urine Total Protein Fluid Total Protein Vancomycin Trough Rheumatoid Factor Complement C4 Miscellaneous Test Crossmatch 10/26/16 10/26/16 10/26/16 04:54 07:06 07:06 WBC 16.9 H RBC 3.06 L Hgb 9.1 L Hct 26.9 L MCV MCH MCHC RDW 16.9 H Plt Count Lymph % (Auto) [place] % (Auto) Lymph # [place] # Baso # Seg Neutrophils % Seg Neuts % (Manual) 71.0 H Lymphocytes % (Manual) 5.0 L Monocytes % (Manual) 12.0 H Eosinophils % (Manual) Basophils % (Manual) Nucleated RBC % Seg Neutrophils # Seg Neutrophils # Man 12.0 H Lymphocytes # (Manual) 0.8 L Monocytes # (Manual) 2.0 H Eosinophils # (Manual) Basophils # (Manual) PT INR Fibrinogen dRVVT Confirm Interp Factor V Activity POC ABG pH POC ABG pCO2 POC ABG pO2 ABG pO2 ABG HCO3 ABG Base Excess ABG Hemoglobin Oxyhemoglobin Sodium 135 L Potassium Chloride 97.1 L Carbon Dioxide BUN 73 H Creatinine 2.2 H Glucose 117 H POC Glucose 123 H Lactic Acid Calcium Ionized Calcium Phosphorus 1.70 L Magnesium Direct Bilirubin AST ALT Alkaline Phosphatase Lactate Dehydrogenase Troponin T C-Reactive Protein Total Protein Albumin Prealbumin Triglycerides Cholesterol LDL Cholesterol Direct HDL Cholesterol 25-OH Vitamin D Total PTH Intact Urine pH Urine WBC (Auto) Urine Creatinine Urine Total Protein Fluid Total Protein Vancomycin Trough Rheumatoid Factor Complement C4 Miscellaneous Test Crossmatch 10/26/16 10/26/16 10/26/16 12:12 17:29 23:42 WBC RBC Hgb Hct MCV MCH MCHC RDW Plt Count Lymph % (Auto) [place] % (Auto) Lymph # [place] # Baso # Seg Neutrophils % Seg Neuts % (Manual) Lymphocytes % (Manual) Monocytes % (Manual) Eosinophils % (Manual) Basophils % (Manual) Nucleated RBC % Seg Neutrophils # Seg Neutrophils # Man Lymphocytes # (Manual) Monocytes # (Manual) Eosinophils # (Manual) Basophils # (Manual) PT INR Fibrinogen dRVVT Confirm Interp Factor V Activity POC ABG pH POC ABG pCO2 POC ABG pO2 ABG pO2 ABG HCO3 ABG Base Excess ABG Hemoglobin Oxyhemoglobin Sodium Potassium Chloride Carbon Dioxide BUN Creatinine Glucose POC Glucose 126 H 161 H 118 H Lactic Acid Calcium Ionized Calcium Phosphorus Magnesium Direct Bilirubin AST ALT Alkaline Phosphatase Lactate Dehydrogenase Troponin T C-Reactive Protein Total Protein Albumin Prealbumin Triglycerides Cholesterol LDL Cholesterol Direct HDL Cholesterol 25-OH Vitamin D Total PTH Intact Urine pH Urine WBC (Auto) Urine Creatinine Urine Total Protein Fluid Total Protein Vancomycin Trough Rheumatoid Factor Complement C4 Miscellaneous Test Crossmatch 10/27/16 10/27/16 10/27/16 05:03 06:30 06:30 WBC 13.9 H RBC 3.09 L Hgb 9.2 L Hct 27.5 L MCV MCH MCHC RDW 17.0 H Plt Count Lymph % (Auto) [place] % (Auto) Lymph # [place] # Baso # Seg Neutrophils % Seg Neuts % (Manual) 78.0 H Lymphocytes % (Manual) Monocytes % (Manual) Eosinophils % (Manual) Basophils % (Manual) Nucleated RBC % 2.0 H Seg Neutrophils # Seg Neutrophils # Man 10.8 H Lymphocytes # (Manual) Monocytes # (Manual) 1.0 H Eosinophils # (Manual) Basophils # (Manual) PT INR Fibrinogen dRVVT Confirm Interp Factor V Activity POC ABG pH POC ABG pCO2 POC ABG pO2 ABG pO2 ABG HCO3 ABG Base Excess ABG Hemoglobin Oxyhemoglobin Sodium Potassium Chloride Carbon Dioxide BUN 40 H Creatinine 1.5 H Glucose 135 H POC Glucose 107 H Lactic Acid Calcium 8.3 L Ionized Calcium Phosphorus 1.30 L D Magnesium Direct Bilirubin AST ALT Alkaline Phosphatase Lactate Dehydrogenase Troponin T C-Reactive Protein Total Protein Albumin Prealbumin Triglycerides Cholesterol LDL Cholesterol Direct HDL Cholesterol 25-OH Vitamin D Total PTH Intact Urine pH Urine WBC (Auto) Urine Creatinine Urine Total Protein Fluid Total Protein Vancomycin Trough Rheumatoid Factor Complement C4 Miscellaneous Test Crossmatch 10/27/16 10/27/16 10/27/16 13:27 18:07 23:40 WBC RBC Hgb Hct MCV MCH MCHC RDW Plt Count Lymph % (Auto) [place] % (Auto) Lymph # [place] # Baso # Seg Neutrophils % Seg Neuts % (Manual) Lymphocytes % (Manual) Monocytes % (Manual) Eosinophils % (Manual) Basophils % (Manual) Nucleated RBC % Seg Neutrophils # Seg Neutrophils # Man Lymphocytes # (Manual) Monocytes # (Manual) Eosinophils # (Manual) Basophils # (Manual) PT INR Fibrinogen dRVVT Confirm Interp Factor V Activity POC ABG pH POC ABG pCO2 POC ABG pO2 ABG pO2 ABG HCO3 ABG Base Excess ABG Hemoglobin Oxyhemoglobin Sodium Potassium Chloride Carbon Dioxide BUN Creatinine Glucose POC Glucose 117 H 121 H 118 H Lactic Acid Calcium Ionized Calcium Phosphorus Magnesium Direct Bilirubin AST ALT Alkaline Phosphatase Lactate Dehydrogenase Troponin T C-Reactive Protein Total Protein Albumin Prealbumin Triglycerides Cholesterol LDL Cholesterol Direct HDL Cholesterol 25-OH Vitamin D Total PTH Intact Urine pH Urine WBC (Auto) Urine Creatinine Urine Total Protein Fluid Total Protein Vancomycin Trough Rheumatoid Factor Complement C4 Miscellaneous Test Crossmatch 10/28/16 10/28/16 10/28/16 05:48 06:45 06:45 WBC 14.7 H RBC 3.05 L Hgb 9.0 L Hct 26.9 L MCV MCH MCHC RDW 16.8 H Plt Count Lymph % (Auto) 8.2 L [place] % (Auto) 8.4 H Lymph # [place] # 1.2 H Baso # Seg Neutrophils % 81.9 H Seg Neuts % (Manual) Lymphocytes % (Manual) Monocytes % (Manual) Eosinophils % (Manual) Basophils % (Manual) Nucleated RBC % Seg Neutrophils # 12.1 H Seg Neutrophils # Man Lymphocytes # (Manual) Monocytes # (Manual) Eosinophils # (Manual) Basophils # (Manual) PT INR Fibrinogen dRVVT Confirm Interp Factor V Activity POC ABG pH POC ABG pCO2 POC ABG pO2 ABG pO2 ABG HCO3 ABG Base Excess ABG Hemoglobin Oxyhemoglobin Sodium Potassium Chloride Carbon Dioxide BUN 60 H Creatinine 1.9 H Glucose 120 H POC Glucose 114 H Lactic Acid Calcium Ionized Calcium Phosphorus Magnesium Direct Bilirubin AST ALT Alkaline Phosphatase Lactate Dehydrogenase Troponin T C-Reactive Protein Total Protein Albumin Prealbumin Triglycerides Cholesterol LDL Cholesterol Direct HDL Cholesterol 25-OH Vitamin D Total PTH Intact Urine pH Urine WBC (Auto) Urine Creatinine Urine Total Protein Fluid Total Protein Vancomycin Trough Rheumatoid Factor Complement C4 Miscellaneous Test Crossmatch 10/28/16 10/28/16 10/29/16 17:08 23:50 05:10 WBC RBC Hgb Hct MCV MCH MCHC RDW Plt Count Lymph % (Auto) [place] % (Auto) Lymph # [place] # Baso # Seg Neutrophils % Seg Neuts % (Manual) Lymphocytes % (Manual) Monocytes % (Manual) Eosinophils % (Manual) Basophils % (Manual) Nucleated RBC % Seg Neutrophils # Seg Neutrophils # Man Lymphocytes # (Manual) Monocytes # (Manual) Eosinophils # (Manual) Basophils # (Manual) PT INR Fibrinogen dRVVT Confirm Interp Factor V Activity POC ABG pH POC ABG pCO2 POC ABG pO2 ABG pO2 ABG HCO3 ABG Base Excess ABG Hemoglobin Oxyhemoglobin Sodium Potassium Chloride Carbon Dioxide BUN Creatinine Glucose POC Glucose 109 H 110 H 124 H Lactic Acid Calcium Ionized Calcium Phosphorus Magnesium Direct Bilirubin AST ALT Alkaline Phosphatase Lactate Dehydrogenase Troponin T C-Reactive Protein Total Protein Albumin Prealbumin Triglycerides Cholesterol LDL Cholesterol Direct HDL Cholesterol 25-OH Vitamin D Total PTH Intact Urine pH Urine WBC (Auto) Urine Creatinine Urine Total Protein Fluid Total Protein Vancomycin Trough Rheumatoid Factor Complement C4 Miscellaneous Test Crossmatch 10/29/16 10/29/16 10/29/16 07:45 07:45 12:19 WBC 14.7 H RBC 3.15 L Hgb 9.3 L Hct 28.9 L MCV MCH MCHC RDW 17.0 H Plt Count Lymph % (Auto) 11.9 L [place] % (Auto) 8.6 H Lymph # [place] # 1.3 H Baso # Seg Neutrophils % 78.1 H Seg Neuts % (Manual) Lymphocytes % (Manual) Monocytes % (Manual) Eosinophils % (Manual) Basophils % (Manual) Nucleated RBC % Seg Neutrophils # 11.4 H Seg Neutrophils # Man Lymphocytes # (Manual) Monocytes # (Manual) Eosinophils # (Manual) Basophils # (Manual) PT INR Fibrinogen dRVVT Confirm Interp Factor V Activity POC ABG pH POC ABG pCO2 POC ABG pO2 ABG pO2 ABG HCO3 ABG Base Excess ABG Hemoglobin Oxyhemoglobin Sodium Potassium 5.1 H Chloride Carbon Dioxide 19 L BUN 78 H Creatinine 2.2 H Glucose 116 H POC Glucose 118 H Lactic Acid Calcium Ionized Calcium Phosphorus Magnesium Direct Bilirubin AST ALT Alkaline Phosphatase Lactate Dehydrogenase Troponin T C-Reactive Protein Total Protein Albumin Prealbumin Triglycerides Cholesterol LDL Cholesterol Direct HDL Cholesterol 25-OH Vitamin D Total PTH Intact Urine pH Urine WBC (Auto) Urine Creatinine Urine Total Protein Fluid Total Protein Vancomycin Trough Rheumatoid Factor Complement C4 Miscellaneous Test Crossmatch 10/29/16 10/30/16 10/30/16 17:49 01:52 03:28 WBC RBC Hgb Hct MCV MCH MCHC RDW Plt Count Lymph % (Auto) [place] % (Auto) Lymph # [place] # Baso # Seg Neutrophils % Seg Neuts % (Manual) Lymphocytes % (Manual) Monocytes % (Manual) Eosinophils % (Manual) Basophils % (Manual) Nucleated RBC % Seg Neutrophils # Seg Neutrophils # Man Lymphocytes # (Manual) Monocytes # (Manual) Eosinophils # (Manual) Basophils # (Manual) PT INR Fibrinogen dRVVT Confirm Interp Factor V Activity POC ABG pH POC ABG pCO2 POC ABG pO2 ABG pO2 ABG HCO3 ABG Base Excess ABG Hemoglobin Oxyhemoglobin Sodium Potassium 5.4 H Chloride 97.5 L Carbon Dioxide 19 L BUN 90 H Creatinine 2.5 H Glucose POC Glucose 120 H 129 H Lactic Acid Calcium Ionized Calcium Phosphorus 5.20 H Magnesium Direct Bilirubin AST ALT Alkaline Phosphatase Lactate Dehydrogenase Troponin T C-Reactive Protein Total Protein Albumin Prealbumin Triglycerides Cholesterol LDL Cholesterol Direct HDL Cholesterol 25-OH Vitamin D Total PTH Intact Urine pH Urine WBC (Auto) Urine Creatinine Urine Total Protein Fluid Total Protein Vancomycin Trough Rheumatoid Factor Complement C4 Miscellaneous Test Crossmatch 10/30/16 10/30/16 10/30/16 03:28 08:19 08:19 WBC 11.6 H 15.9 H RBC 2.75 L 2.82 L Hgb 7.9 L 8.3 L Hct 24.2 L 25.2 L MCV MCH MCHC RDW 16.7 H 17.2 H Plt Count Lymph % (Auto) [place] % (Auto) 9.8 H Lymph # [place] # 1.1 H Baso # Seg Neutrophils % 74.2 H Seg Neuts % (Manual) Lymphocytes % (Manual) Monocytes % (Manual) Eosinophils % (Manual) Basophils % (Manual) Nucleated RBC % Seg Neutrophils # 8.6 H Seg Neutrophils # Man Lymphocytes # (Manual) Monocytes # (Manual) Eosinophils # (Manual) Basophils # (Manual) PT INR Fibrinogen dRVVT Confirm Interp Factor V Activity POC ABG pH POC ABG pCO2 POC ABG pO2 ABG pO2 ABG HCO3 ABG Base Excess ABG Hemoglobin Oxyhemoglobin Sodium Potassium 5.3 H Chloride 97.4 L Carbon Dioxide 19 L BUN 93 H Creatinine 2.6 H Glucose POC Glucose Lactic Acid Calcium Ionized Calcium Phosphorus Magnesium Direct Bilirubin AST ALT Alkaline Phosphatase Lactate Dehydrogenase Troponin T C-Reactive Protein Total Protein Albumin Prealbumin Triglycerides Cholesterol LDL Cholesterol Direct HDL Cholesterol 25-OH Vitamin D Total PTH Intact Urine pH Urine WBC (Auto) Urine Creatinine Urine Total Protein Fluid Total Protein Vancomycin Trough Rheumatoid Factor Complement C4 Miscellaneous Test Crossmatch 10/30/16 10/30/16 10/31/16 17:11 23:56 00:40 WBC RBC Hgb Hct MCV MCH MCHC RDW Plt Count Lymph % (Auto) [place] % (Auto) Lymph # [place] # Baso # Seg Neutrophils % Seg Neuts % (Manual) Lymphocytes % (Manual) Monocytes % (Manual) Eosinophils % (Manual) Basophils % (Manual) Nucleated RBC % Seg Neutrophils # Seg Neutrophils # Man Lymphocytes # (Manual) Monocytes # (Manual) Eosinophils # (Manual) Basophils # (Manual) PT INR Fibrinogen dRVVT Confirm Interp Factor V Activity POC ABG pH POC ABG pCO2 POC ABG pO2 ABG pO2 ABG HCO3 ABG Base Excess ABG Hemoglobin Oxyhemoglobin Sodium Potassium Chloride Carbon Dioxide BUN Creatinine Glucose POC Glucose 106 H 117 H 120 H Lactic Acid Calcium Ionized Calcium Phosphorus Magnesium Direct Bilirubin AST ALT Alkaline Phosphatase Lactate Dehydrogenase Troponin T C-Reactive Protein Total Protein Albumin Prealbumin Triglycerides Cholesterol LDL Cholesterol Direct HDL Cholesterol 25-OH Vitamin D Total PTH Intact Urine pH Urine WBC (Auto) Urine Creatinine Urine Total Protein Fluid Total Protein Vancomycin Trough Rheumatoid Factor Complement C4 Miscellaneous Test Crossmatch 10/31/16 10/31/16 10/31/16 05:43 07:15 07:15 WBC 12.1 H RBC 2.63 L Hgb 7.7 L Hct 23.3 L MCV MCH MCHC RDW 16.7 H Plt Count Lymph % (Auto) 11.7 L [place] % (Auto) 7.7 H Lymph # [place] # 0.9 H Baso # Seg Neutrophils % 78.0 H Seg Neuts % (Manual) Lymphocytes % (Manual) Monocytes % (Manual) Eosinophils % (Manual) Basophils % (Manual) Nucleated RBC % Seg Neutrophils # 9.4 H Seg Neutrophils # Man Lymphocytes # (Manual) Monocytes # (Manual) Eosinophils # (Manual) Basophils # (Manual) PT INR Fibrinogen dRVVT Confirm Interp Factor V Activity POC ABG pH POC ABG pCO2 POC ABG pO2 ABG pO2 ABG HCO3 ABG Base Excess ABG Hemoglobin Oxyhemoglobin Sodium Potassium Chloride 96.4 L Carbon Dioxide 21 L BUN 99 H Creatinine 2.6 H Glucose 144 H POC Glucose 125 H Lactic Acid Calcium Ionized Calcium Phosphorus 4.80 H Magnesium Direct Bilirubin AST ALT Alkaline Phosphatase Lactate Dehydrogenase Troponin T C-Reactive Protein Total Protein Albumin Prealbumin Triglycerides Cholesterol LDL Cholesterol Direct HDL Cholesterol 25-OH Vitamin D Total PTH Intact Urine pH Urine WBC (Auto) Urine Creatinine Urine Total Protein Fluid Total Protein Vancomycin Trough Rheumatoid Factor Complement C4 Miscellaneous Test Crossmatch 10/31/16 10/31/16 11/01/16 11:46 18:34 00:20 WBC RBC Hgb Hct MCV MCH MCHC RDW Plt Count Lymph % (Auto) [place] % (Auto) Lymph # [place] # Baso # Seg Neutrophils % Seg Neuts % (Manual) Lymphocytes % (Manual) Monocytes % (Manual) Eosinophils % (Manual) Basophils % (Manual) Nucleated RBC % Seg Neutrophils # Seg Neutrophils # Man Lymphocytes # (Manual) Monocytes # (Manual) Eosinophils # (Manual) Basophils # (Manual) PT INR Fibrinogen dRVVT Confirm Interp Factor V Activity POC ABG pH POC ABG pCO2 POC ABG pO2 ABG pO2 ABG HCO3 ABG Base Excess ABG Hemoglobin Oxyhemoglobin Sodium Potassium Chloride Carbon Dioxide BUN Creatinine Glucose POC Glucose 159 H 140 H 132 H Lactic Acid Calcium Ionized Calcium Phosphorus Magnesium Direct Bilirubin AST ALT Alkaline Phosphatase Lactate Dehydrogenase Troponin T C-Reactive Protein Total Protein Albumin Prealbumin Triglycerides Cholesterol LDL Cholesterol Direct HDL Cholesterol 25-OH Vitamin D Total PTH Intact Urine pH Urine WBC (Auto) Urine Creatinine Urine Total Protein Fluid Total Protein Vancomycin Trough Rheumatoid Factor Complement C4 Miscellaneous Test Crossmatch 11/01/16 11/01/16 11/01/16 04:55 04:55 06:11 WBC 11.2 H RBC 2.68 L Hgb 7.5 L Hct 23.7 L MCV MCH MCHC RDW 16.1 H Plt Count Lymph % (Auto) [place] % (Auto) 9.8 H Lymph # [place] # 1.1 H Baso # Seg Neutrophils % 70.8 H Seg Neuts % (Manual) Lymphocytes % (Manual) Monocytes % (Manual) Eosinophils % (Manual) Basophils % (Manual) Nucleated RBC % Seg Neutrophils # 7.9 H Seg Neutrophils # Man Lymphocytes # (Manual) Monocytes # (Manual) Eosinophils # (Manual) Basophils # (Manual) PT INR Fibrinogen dRVVT Confirm Interp Factor V Activity POC ABG pH POC ABG pCO2 POC ABG pO2 ABG pO2 ABG HCO3 ABG Base Excess ABG Hemoglobin Oxyhemoglobin Sodium Potassium 3.3 L D Chloride Carbon Dioxide BUN 61 H Creatinine 1.9 H Glucose 114 H POC Glucose 115 H Lactic Acid Calcium Ionized Calcium Phosphorus 1.80 L D Magnesium Direct Bilirubin AST ALT Alkaline Phosphatase Lactate Dehydrogenase Troponin T C-Reactive Protein Total Protein Albumin Prealbumin Triglycerides Cholesterol LDL Cholesterol Direct HDL Cholesterol 25-OH Vitamin D Total PTH Intact Urine pH Urine WBC (Auto) Urine Creatinine Urine Total Protein Fluid Total Protein Vancomycin Trough Rheumatoid Factor Complement C4 Miscellaneous Test Crossmatch 11/01/16 11/01/16 11/01/16 12:29 18:23 23:58 WBC RBC Hgb Hct MCV MCH MCHC RDW Plt Count Lymph % (Auto) [place] % (Auto) Lymph # [place] # Baso # Seg Neutrophils % Seg Neuts % (Manual) Lymphocytes % (Manual) Monocytes % (Manual) Eosinophils % (Manual) Basophils % (Manual) Nucleated RBC % Seg Neutrophils # Seg Neutrophils # Man Lymphocytes # (Manual) Monocytes # (Manual) Eosinophils # (Manual) Basophils # (Manual) PT INR Fibrinogen dRVVT Confirm Interp Factor V Activity POC ABG pH POC ABG pCO2 POC ABG pO2 ABG pO2 ABG HCO3 ABG Base Excess ABG Hemoglobin Oxyhemoglobin Sodium Potassium Chloride Carbon Dioxide BUN Creatinine Glucose POC Glucose 142 H 143 H 128 H Lactic Acid Calcium Ionized Calcium Phosphorus Magnesium Direct Bilirubin AST ALT Alkaline Phosphatase Lactate Dehydrogenase Troponin T C-Reactive Protein Total Protein Albumin Prealbumin Triglycerides Cholesterol LDL Cholesterol Direct HDL Cholesterol 25-OH Vitamin D Total PTH Intact Urine pH Urine WBC (Auto) Urine Creatinine Urine Total Protein Fluid Total Protein Vancomycin Trough Rheumatoid Factor Complement C4 Miscellaneous Test Crossmatch 11/02/16 11/02/16 11/02/16 04:16 05:29 11:58 WBC RBC Hgb Hct MCV MCH MCHC RDW Plt Count Lymph % (Auto) [place] % (Auto) Lymph # [place] # Baso # Seg Neutrophils % Seg Neuts % (Manual) Lymphocytes % (Manual) Monocytes % (Manual) Eosinophils % (Manual) Basophils % (Manual) Nucleated RBC % Seg Neutrophils # Seg Neutrophils # Man Lymphocytes # (Manual) Monocytes # (Manual) Eosinophils # (Manual) Basophils # (Manual) PT INR Fibrinogen dRVVT Confirm Interp Factor V Activity POC ABG pH POC ABG pCO2 POC ABG pO2 ABG pO2 ABG HCO3 ABG Base Excess ABG Hemoglobin Oxyhemoglobin Sodium Potassium 3.1 L Chloride Carbon Dioxide BUN 73 H Creatinine 2.3 H Glucose 112 H POC Glucose 135 H 149 H Lactic Acid Calcium Ionized Calcium Phosphorus Magnesium Direct Bilirubin AST ALT Alkaline Phosphatase Lactate Dehydrogenase Troponin T C-Reactive Protein Total Protein Albumin Prealbumin Triglycerides Cholesterol LDL Cholesterol Direct HDL Cholesterol 25-OH Vitamin D Total PTH Intact Urine pH Urine WBC (Auto) Urine Creatinine Urine Total Protein Fluid Total Protein Vancomycin Trough Rheumatoid Factor Complement C4 Miscellaneous Test Crossmatch 11/02/16 11/02/16 11/03/16 17:42 22:54 06:00 WBC RBC Hgb Hct MCV MCH MCHC RDW Plt Count Lymph % (Auto) [place] % (Auto) Lymph # [place] # Baso # Seg Neutrophils % Seg Neuts % (Manual) Lymphocytes % (Manual) Monocytes % (Manual) Eosinophils % (Manual) Basophils % (Manual) Nucleated RBC % Seg Neutrophils # Seg Neutrophils # Man Lymphocytes # (Manual) Monocytes # (Manual) Eosinophils # (Manual) Basophils # (Manual) PT INR Fibrinogen dRVVT Confirm Interp Factor V Activity POC ABG pH POC ABG pCO2 POC ABG pO2 ABG pO2 ABG HCO3 ABG Base Excess ABG Hemoglobin Oxyhemoglobin Sodium Potassium Chloride 96.7 L Carbon Dioxide BUN 41 H Creatinine 1.5 H Glucose 145 H POC Glucose 182 H 115 H Lactic Acid Calcium Ionized Calcium Phosphorus 1.60 L D Magnesium 1.50 L Direct Bilirubin AST ALT Alkaline Phosphatase Lactate Dehydrogenase Troponin T C-Reactive Protein Total Protein Albumin Prealbumin Triglycerides Cholesterol LDL Cholesterol Direct HDL Cholesterol 25-OH Vitamin D Total PTH Intact Urine pH Urine WBC (Auto) Urine Creatinine Urine Total Protein Fluid Total Protein Vancomycin Trough Rheumatoid Factor Complement C4 Miscellaneous Test Crossmatch 11/03/16 11/03/16 11/03/16 11:53 17:45 23:37 WBC RBC Hgb Hct MCV MCH MCHC RDW Plt Count Lymph % (Auto) [place] % (Auto) Lymph # [place] # Baso # Seg Neutrophils % Seg Neuts % (Manual) Lymphocytes % (Manual) Monocytes % (Manual) Eosinophils % (Manual) Basophils % (Manual) Nucleated RBC % Seg Neutrophils # Seg Neutrophils # Man Lymphocytes # (Manual) Monocytes # (Manual) Eosinophils # (Manual) Basophils # (Manual) PT INR Fibrinogen dRVVT Confirm Interp Factor V Activity POC ABG pH POC ABG pCO2 POC ABG pO2 ABG pO2 ABG HCO3 ABG Base Excess ABG Hemoglobin Oxyhemoglobin Sodium Potassium Chloride Carbon Dioxide BUN Creatinine Glucose POC Glucose 131 H 134 H 113 H Lactic Acid Calcium Ionized Calcium Phosphorus Magnesium Direct Bilirubin AST ALT Alkaline Phosphatase Lactate Dehydrogenase Troponin T C-Reactive Protein Total Protein Albumin Prealbumin Triglycerides Cholesterol LDL Cholesterol Direct HDL Cholesterol 25-OH Vitamin D Total PTH Intact Urine pH Urine WBC (Auto) Urine Creatinine Urine Total Protein Fluid Total Protein Vancomycin Trough Rheumatoid Factor Complement C4 Miscellaneous Test Crossmatch 11/04/16 11/04/16 11/04/16 05:41 06:00 12:10 WBC RBC Hgb Hct MCV MCH MCHC RDW Plt Count Lymph % (Auto) [place] % (Auto) Lymph # [place] # Baso # Seg Neutrophils % Seg Neuts % (Manual) Lymphocytes % (Manual) Monocytes % (Manual) Eosinophils % (Manual) Basophils % (Manual) Nucleated RBC % Seg Neutrophils # Seg Neutrophils # Man Lymphocytes # (Manual) Monocytes # (Manual) Eosinophils # (Manual) Basophils # (Manual) PT INR Fibrinogen dRVVT Confirm Interp Factor V Activity POC ABG pH POC ABG pCO2 POC ABG pO2 ABG pO2 ABG HCO3 ABG Base Excess ABG Hemoglobin Oxyhemoglobin Sodium Potassium Chloride 96.7 L Carbon Dioxide BUN 52 H Creatinine 1.9 H Glucose 126 H POC Glucose 137 H 191 H Lactic Acid Calcium Ionized Calcium Phosphorus Magnesium Direct Bilirubin AST ALT Alkaline Phosphatase Lactate Dehydrogenase Troponin T C-Reactive Protein Total Protein Albumin Prealbumin Triglycerides Cholesterol LDL Cholesterol Direct HDL Cholesterol 25-OH Vitamin D Total PTH Intact Urine pH Urine WBC (Auto) Urine Creatinine Urine Total Protein Fluid Total Protein Vancomycin Trough Rheumatoid Factor Complement C4 Miscellaneous Test Crossmatch 11/04/16 11/05/16 11/05/16 22:57 03:10 05:10 WBC RBC Hgb Hct MCV MCH MCHC RDW Plt Count Lymph % (Auto) [place] % (Auto) Lymph # [place] # Baso # Seg Neutrophils % Seg Neuts % (Manual) Lymphocytes % (Manual) Monocytes % (Manual) Eosinophils % (Manual) Basophils % (Manual) Nucleated RBC % Seg Neutrophils # Seg Neutrophils # Man Lymphocytes # (Manual) Monocytes # (Manual) Eosinophils # (Manual) Basophils # (Manual) PT INR Fibrinogen dRVVT Confirm Interp Factor V Activity POC ABG pH POC ABG pCO2 POC ABG pO2 ABG pO2 ABG HCO3 ABG Base Excess ABG Hemoglobin Oxyhemoglobin Sodium 136 L Potassium Chloride 97.2 L Carbon Dioxide BUN 32 H Creatinine 1.3 H Glucose 123 H POC Glucose 125 H 108 H Lactic Acid Calcium 7.8 L Ionized Calcium Phosphorus Magnesium Direct Bilirubin AST ALT Alkaline Phosphatase Lactate Dehydrogenase Troponin T C-Reactive Protein Total Protein Albumin Prealbumin Triglycerides Cholesterol LDL Cholesterol Direct HDL Cholesterol 25-OH Vitamin D Total PTH Intact Urine pH Urine WBC (Auto) Urine Creatinine Urine Total Protein Fluid Total Protein Vancomycin Trough Rheumatoid Factor Complement C4 Miscellaneous Test Crossmatch 11/05/16 11/05/16 11/05/16 12:23 13:09 13:25 WBC RBC Hgb Hct MCV MCH MCHC RDW Plt Count Lymph % (Auto) [place] % (Auto) Lymph # [place] # Baso # Seg Neutrophils % Seg Neuts % (Manual) Lymphocytes % (Manual) Monocytes % (Manual) Eosinophils % (Manual) Basophils % (Manual) Nucleated RBC % Seg Neutrophils # Seg Neutrophils # Man Lymphocytes # (Manual) Monocytes # (Manual) Eosinophils # (Manual) Basophils # (Manual) PT INR Fibrinogen dRVVT Confirm Interp Factor V Activity POC ABG pH POC ABG pCO2 POC ABG pO2 ABG pO2 ABG HCO3 ABG Base Excess ABG Hemoglobin Oxyhemoglobin Sodium Potassium Chloride Carbon Dioxide BUN Creatinine Glucose POC Glucose 124 H Lactic Acid Calcium Ionized Calcium Phosphorus Magnesium Direct Bilirubin AST ALT Alkaline Phosphatase Lactate Dehydrogenase Troponin T C-Reactive Protein 11.40 H Total Protein Albumin Prealbumin Triglycerides Cholesterol LDL Cholesterol Direct HDL Cholesterol 25-OH Vitamin D Total PTH Intact Urine pH 9.0 H Urine WBC (Auto) Urine Creatinine Urine Total Protein Fluid Total Protein Vancomycin Trough Rheumatoid Factor Complement C4 Miscellaneous Test Crossmatch 11/05/16 11/05/16 11/05/16 13:25 17:54 23:42 WBC RBC Hgb Hct MCV MCH MCHC RDW Plt Count Lymph % (Auto) [place] % (Auto) Lymph # [place] # Baso # Seg Neutrophils % Seg Neuts % (Manual) Lymphocytes % (Manual) Monocytes % (Manual) Eosinophils % (Manual) Basophils % (Manual) Nucleated RBC % Seg Neutrophils # Seg Neutrophils # Man Lymphocytes # (Manual) Monocytes # (Manual) Eosinophils # (Manual) Basophils # (Manual) PT INR Fibrinogen dRVVT Confirm Interp Factor V Activity POC ABG pH POC ABG pCO2 POC ABG pO2 ABG pO2 ABG HCO3 ABG Base Excess ABG Hemoglobin Oxyhemoglobin Sodium Potassium Chloride Carbon Dioxide BUN Creatinine Glucose POC Glucose 114 H 134 H Lactic Acid Calcium Ionized Calcium Phosphorus Magnesium Direct Bilirubin AST ALT Alkaline Phosphatase Lactate Dehydrogenase Troponin T C-Reactive Protein Total Protein Albumin Prealbumin Triglycerides Cholesterol LDL Cholesterol Direct HDL Cholesterol 25-OH Vitamin D Total PTH Intact Urine pH Urine WBC (Auto) Urine Creatinine Urine Total Protein Fluid Total Protein Vancomycin Trough Rheumatoid Factor Complement C4 Miscellaneous Test Flexitest 1 H Crossmatch 11/06/16 11/06/16 11/06/16 04:56 06:25 06:25 WBC RBC 2.50 L Hgb 7.3 L Hct 22.5 L MCV MCH MCHC RDW 16.9 H Plt Count Lymph % (Auto) [place] % (Auto) 10.5 H Lymph # [place] # 1.1 H Baso # Seg Neutrophils % Seg Neuts % (Manual) Lymphocytes % (Manual) Monocytes % (Manual) Eosinophils % (Manual) Basophils % (Manual) Nucleated RBC % Seg Neutrophils # Seg Neutrophils # Man Lymphocytes # (Manual) Monocytes # (Manual) Eosinophils # (Manual) Basophils # (Manual) PT INR Fibrinogen dRVVT Confirm Interp Factor V Activity POC ABG pH POC ABG pCO2 POC ABG pO2 ABG pO2 ABG HCO3 ABG Base Excess ABG Hemoglobin Oxyhemoglobin Sodium Potassium 5.1 H Chloride 95.9 L Carbon Dioxide BUN 52 H Creatinine 1.8 H Glucose 117 H POC Glucose 120 H Lactic Acid Calcium Ionized Calcium Phosphorus Magnesium Direct Bilirubin AST 103 H ALT 77 H Alkaline Phosphatase 285 H Lactate Dehydrogenase Troponin T C-Reactive Protein Total Protein 6.2 L Albumin 1.8 L Prealbumin 0.180 L Triglycerides Cholesterol LDL Cholesterol Direct HDL Cholesterol 25-OH Vitamin D Total PTH Intact Urine pH Urine WBC (Auto) Urine Creatinine Urine Total Protein Fluid Total Protein Vancomycin Trough Rheumatoid Factor Complement C4 Miscellaneous Test Crossmatch 11/06/16 11/06/16 11/06/16 11:56 17:14 23:52 WBC RBC Hgb Hct MCV MCH MCHC RDW Plt Count Lymph % (Auto) [place] % (Auto) Lymph # [place] # Baso # Seg Neutrophils % Seg Neuts % (Manual) Lymphocytes % (Manual) Monocytes % (Manual) Eosinophils % (Manual) Basophils % (Manual) Nucleated RBC % Seg Neutrophils # Seg Neutrophils # Man Lymphocytes # (Manual) Monocytes # (Manual) Eosinophils # (Manual) Basophils # (Manual) PT INR Fibrinogen dRVVT Confirm Interp Factor V Activity POC ABG pH POC ABG pCO2 POC ABG pO2 ABG pO2 ABG HCO3 ABG Base Excess ABG Hemoglobin Oxyhemoglobin Sodium Potassium Chloride Carbon Dioxide BUN Creatinine Glucose POC Glucose 141 H 125 H 130 H Lactic Acid Calcium Ionized Calcium Phosphorus Magnesium Direct Bilirubin AST ALT Alkaline Phosphatase Lactate Dehydrogenase Troponin T C-Reactive Protein Total Protein Albumin Prealbumin Triglycerides Cholesterol LDL Cholesterol Direct HDL Cholesterol 25-OH Vitamin D Total PTH Intact Urine pH Urine WBC (Auto) Urine Creatinine Urine Total Protein Fluid Total Protein Vancomycin Trough Rheumatoid Factor Complement C4 Miscellaneous Test Crossmatch 11/07/16 11/07/16 11/07/16 06:30 06:30 09:37 WBC RBC 2.18 L Hgb 6.3 L Hct 19.7 L* MCV MCH MCHC RDW 16.8 H Plt Count Lymph % (Auto) [place] % (Auto) 10.0 H Lymph # [place] # 1.0 H Baso # Seg Neutrophils % Seg Neuts % (Manual) Lymphocytes % (Manual) Monocytes % (Manual) Eosinophils % (Manual) Basophils % (Manual) Nucleated RBC % Seg Neutrophils # Seg Neutrophils # Man Lymphocytes # (Manual) Monocytes # (Manual) Eosinophils # (Manual) Basophils # (Manual) PT INR Fibrinogen dRVVT Confirm Interp Factor V Activity POC ABG pH POC ABG pCO2 POC ABG pO2 ABG pO2 ABG HCO3 ABG Base Excess ABG Hemoglobin Oxyhemoglobin Sodium 135 L Potassium Chloride 95.6 L Carbon Dioxide BUN 70 H Creatinine 2.0 H Glucose 126 H POC Glucose Lactic Acid Calcium Ionized Calcium Phosphorus Magnesium Direct Bilirubin AST ALT Alkaline Phosphatase Lactate Dehydrogenase Troponin T C-Reactive Protein Total Protein Albumin Prealbumin Triglycerides Cholesterol LDL Cholesterol Direct HDL Cholesterol 25-OH Vitamin D Total PTH Intact Urine pH Urine WBC (Auto) Urine Creatinine Urine Total Protein Fluid Total Protein Vancomycin Trough Rheumatoid Factor Complement C4 Miscellaneous Test Crossmatch See Detail 11/07/16 11/07/16 11/07/16 12:52 18:51 21:26 WBC RBC Hgb Hct MCV MCH MCHC RDW Plt Count Lymph % (Auto) [place] % (Auto) Lymph # [place] # Baso # Seg Neutrophils % Seg Neuts % (Manual) Lymphocytes % (Manual) Monocytes % (Manual) Eosinophils % (Manual) Basophils % (Manual) Nucleated RBC % Seg Neutrophils # Seg Neutrophils # Man Lymphocytes # (Manual) Monocytes # (Manual) Eosinophils # (Manual) Basophils # (Manual) PT INR Fibrinogen dRVVT Confirm Interp Factor V Activity POC ABG pH 7.523 H POC ABG pCO2 34.6 L POC ABG pO2 53 L ABG pO2 ABG HCO3 ABG Base Excess ABG Hemoglobin Oxyhemoglobin Sodium Potassium Chloride Carbon Dioxide BUN Creatinine Glucose POC Glucose 142 H 155 H Lactic Acid Calcium Ionized Calcium Phosphorus Magnesium Direct Bilirubin AST ALT Alkaline Phosphatase Lactate Dehydrogenase Troponin T C-Reactive Protein Total Protein Albumin Prealbumin Triglycerides Cholesterol LDL Cholesterol Direct HDL Cholesterol 25-OH Vitamin D Total PTH Intact Urine pH Urine WBC (Auto) Urine Creatinine Urine Total Protein Fluid Total Protein Vancomycin Trough Rheumatoid Factor Complement C4 Miscellaneous Test Crossmatch 11/07/16 11/08/16 11/08/16 21:34 13:03 23:37 WBC RBC 2.63 L Hgb 7.7 L Hct 22.7 L MCV MCH MCHC RDW 17.0 H Plt Count Lymph % (Auto) [place] % (Auto) Lymph # [place] # Baso # Seg Neutrophils % Seg Neuts % (Manual) Lymphocytes % (Manual) Monocytes % (Manual) Eosinophils % (Manual) Basophils % (Manual) Nucleated RBC % Seg Neutrophils # Seg Neutrophils # Man Lymphocytes # (Manual) Monocytes # (Manual) Eosinophils # (Manual) Basophils # (Manual) PT INR Fibrinogen dRVVT Confirm Interp Factor V Activity POC ABG pH 7.478 H POC ABG pCO2 34.0 L POC ABG pO2 50 L ABG pO2 ABG HCO3 ABG Base Excess ABG Hemoglobin Oxyhemoglobin Sodium Potassium Chloride Carbon Dioxide BUN Creatinine Glucose POC Glucose 113 H Lactic Acid Calcium Ionized Calcium Phosphorus Magnesium Direct Bilirubin AST ALT Alkaline Phosphatase Lactate Dehydrogenase Troponin T C-Reactive Protein Total Protein Albumin Prealbumin Triglycerides Cholesterol LDL Cholesterol Direct HDL Cholesterol 25-OH Vitamin D Total PTH Intact Urine pH Urine WBC (Auto) Urine Creatinine Urine Total Protein Fluid Total Protein Vancomycin Trough Rheumatoid Factor Complement C4 Miscellaneous Test Crossmatch 11/09/16 11/09/16 11/09/16 04:35 10:15 18:21 WBC RBC 2.68 L Hgb 7.8 L Hct 23.3 L MCV MCH MCHC RDW 17.0 H Plt Count Lymph % (Auto) [place] % (Auto) 12.1 H Lymph # [place] # 1.1 H Baso # Seg Neutrophils % Seg Neuts % (Manual) Lymphocytes % (Manual) Monocytes % (Manual) Eosinophils % (Manual) Basophils % (Manual) Nucleated RBC % Seg Neutrophils # Seg Neutrophils # Man Lymphocytes # (Manual) Monocytes # (Manual) Eosinophils # (Manual) Basophils # (Manual) PT INR Fibrinogen dRVVT Confirm Interp Factor V Activity POC ABG pH POC ABG pCO2 POC ABG pO2 ABG pO2 ABG HCO3 ABG Base Excess ABG Hemoglobin Oxyhemoglobin Sodium Potassium Chloride Carbon Dioxide BUN 51 H Creatinine 1.8 H Glucose POC Glucose 60 L Lactic Acid Calcium 8.3 L Ionized Calcium Phosphorus Magnesium Direct Bilirubin AST ALT Alkaline Phosphatase Lactate Dehydrogenase Troponin T C-Reactive Protein Total Protein Albumin Prealbumin Triglycerides Cholesterol LDL Cholesterol Direct HDL Cholesterol 25-OH Vitamin D Total PTH Intact Urine pH Urine WBC (Auto) Urine Creatinine Urine Total Protein Fluid Total Protein Vancomycin Trough Rheumatoid Factor Complement C4 Miscellaneous Test Crossmatch 11/09/16 11/10/16 11/10/16 18:55 07:00 11:51 WBC RBC Hgb Hct MCV MCH MCHC RDW Plt Count Lymph % (Auto) [place] % (Auto) Lymph # [place] # Baso # Seg Neutrophils % Seg Neuts % (Manual) Lymphocytes % (Manual) Monocytes % (Manual) Eosinophils % (Manual) Basophils % (Manual) Nucleated RBC % Seg Neutrophils # Seg Neutrophils # Man Lymphocytes # (Manual) Monocytes # (Manual) Eosinophils # (Manual) Basophils # (Manual) PT INR Fibrinogen dRVVT Confirm Interp Factor V Activity POC ABG pH POC ABG pCO2 POC ABG pO2 ABG pO2 ABG HCO3 ABG Base Excess ABG Hemoglobin Oxyhemoglobin Sodium Potassium 3.0 L D Chloride 97.4 L Carbon Dioxide BUN 28 H Creatinine 1.3 H Glucose POC Glucose 68 L 120 H Lactic Acid Calcium 7.8 L Ionized Calcium Phosphorus Magnesium Direct Bilirubin AST ALT Alkaline Phosphatase Lactate Dehydrogenase Troponin T C-Reactive Protein Total Protein Albumin Prealbumin Triglycerides Cholesterol LDL Cholesterol Direct HDL Cholesterol 25-OH Vitamin D Total PTH Intact Urine pH Urine WBC (Auto) Urine Creatinine Urine Total Protein Fluid Total Protein Vancomycin Trough Rheumatoid Factor Complement C4 Miscellaneous Test Crossmatch 11/10/16 11/11/16 11/11/16 14:20 06:59 06:59 WBC RBC 2.81 L Hgb 8.1 L Hct 24.4 L MCV MCH MCHC RDW 16.4 H Plt Count Lymph % (Auto) [place] % (Auto) 10.8 H Lymph # [place] # 1.0 H Baso # Seg Neutrophils % Seg Neuts % (Manual) Lymphocytes % (Manual) Monocytes % (Manual) Eosinophils % (Manual) Basophils % (Manual) Nucleated RBC % Seg Neutrophils # Seg Neutrophils # Man Lymphocytes # (Manual) Monocytes # (Manual) Eosinophils # (Manual) Basophils # (Manual) PT INR Fibrinogen dRVVT Confirm Interp Factor V Activity POC ABG pH POC ABG pCO2 POC ABG pO2 ABG pO2 ABG HCO3 ABG Base Excess ABG Hemoglobin Oxyhemoglobin Sodium Potassium Chloride Carbon Dioxide BUN Creatinine Glucose POC Glucose Lactic Acid Calcium Ionized Calcium Phosphorus Magnesium Direct Bilirubin AST ALT Alkaline Phosphatase Lactate Dehydrogenase 196 H Troponin T C-Reactive Protein Total Protein 6.1 L Albumin Prealbumin Triglycerides Cholesterol LDL Cholesterol Direct HDL Cholesterol 25-OH Vitamin D Total PTH Intact Urine pH Urine WBC (Auto) Urine Creatinine Urine Total Protein Fluid Total Protein < 3.0 L Vancomycin Trough Rheumatoid Factor Complement C4 Miscellaneous Test Crossmatch 11/11/16 11/11/16 11/12/16 06:59 09:50 04:00 WBC RBC Hgb Hct MCV MCH MCHC RDW Plt Count Lymph % (Auto) [place] % (Auto) Lymph # [place] # Baso # Seg Neutrophils % Seg Neuts % (Manual) Lymphocytes % (Manual) Monocytes % (Manual) Eosinophils % (Manual) Basophils % (Manual) Nucleated RBC % Seg Neutrophils # Seg Neutrophils # Man Lymphocytes # (Manual) Monocytes # (Manual) Eosinophils # (Manual) Basophils # (Manual) PT INR 1.18 H Fibrinogen dRVVT Confirm Interp Factor V Activity POC ABG pH POC ABG pCO2 POC ABG pO2 ABG pO2 ABG HCO3 ABG Base Excess ABG Hemoglobin Oxyhemoglobin Sodium 136 L 133 L Potassium Chloride 96.1 L 94.8 L Carbon Dioxide 21 L BUN 37 H 42 H Creatinine 1.8 H 2.0 H Glucose POC Glucose Lactic Acid Calcium Ionized Calcium Phosphorus Magnesium Direct Bilirubin AST ALT Alkaline Phosphatase Lactate Dehydrogenase Troponin T C-Reactive Protein Total Protein Albumin Prealbumin Triglycerides Cholesterol LDL Cholesterol Direct HDL Cholesterol 25-OH Vitamin D Total PTH Intact Urine pH Urine WBC (Auto) Urine Creatinine Urine Total Protein Fluid Total Protein Vancomycin Trough Rheumatoid Factor Complement C4 Miscellaneous Test Crossmatch 11/12/16 11/12/16 11/13/16 04:00 23:55 05:53 WBC RBC Hgb 8.9 L Hct 27.2 L MCV MCH MCHC RDW Plt Count Lymph % (Auto) [place] % (Auto) Lymph # [place] # Baso # Seg Neutrophils % Seg Neuts % (Manual) Lymphocytes % (Manual) Monocytes % (Manual) Eosinophils % (Manual) Basophils % (Manual) Nucleated RBC % Seg Neutrophils # Seg Neutrophils # Man Lymphocytes # (Manual) Monocytes # (Manual) Eosinophils # (Manual) Basophils # (Manual) PT INR Fibrinogen dRVVT Confirm Interp Factor V Activity POC ABG pH POC ABG pCO2 POC ABG pO2 ABG pO2 ABG HCO3 ABG Base Excess ABG Hemoglobin Oxyhemoglobin Sodium Potassium Chloride Carbon Dioxide BUN Creatinine Glucose POC Glucose 132 H 120 H Lactic Acid Calcium Ionized Calcium Phosphorus Magnesium Direct Bilirubin AST ALT Alkaline Phosphatase Lactate Dehydrogenase Troponin T C-Reactive Protein Total Protein Albumin Prealbumin Triglycerides Cholesterol LDL Cholesterol Direct HDL Cholesterol 25-OH Vitamin D Total PTH Intact Urine pH Urine WBC (Auto) Urine Creatinine Urine Total Protein Fluid Total Protein Vancomycin Trough Rheumatoid Factor Complement C4 Miscellaneous Test Crossmatch 11/13/16 11/13/16 11/13/16 11:43 17:09 23:41 WBC RBC Hgb Hct MCV MCH MCHC RDW Plt Count Lymph % (Auto) [place] % (Auto) Lymph # [place] # Baso # Seg Neutrophils % Seg Neuts % (Manual) Lymphocytes % (Manual) Monocytes % (Manual) Eosinophils % (Manual) Basophils % (Manual) Nucleated RBC % Seg Neutrophils # Seg Neutrophils # Man Lymphocytes # (Manual) Monocytes # (Manual) Eosinophils # (Manual) Basophils # (Manual) PT INR Fibrinogen dRVVT Confirm Interp Factor V Activity POC ABG pH POC ABG pCO2 POC ABG pO2 ABG pO2 ABG HCO3 ABG Base Excess ABG Hemoglobin Oxyhemoglobin Sodium Potassium Chloride Carbon Dioxide BUN Creatinine Glucose POC Glucose 114 H 113 H 108 H Lactic Acid Calcium Ionized Calcium Phosphorus Magnesium Direct Bilirubin AST ALT Alkaline Phosphatase Lactate Dehydrogenase Troponin T C-Reactive Protein Total Protein Albumin Prealbumin Triglycerides Cholesterol LDL Cholesterol Direct HDL Cholesterol 25-OH Vitamin D Total PTH Intact Urine pH Urine WBC (Auto) Urine Creatinine Urine Total Protein Fluid Total Protein Vancomycin Trough Rheumatoid Factor Complement C4 Miscellaneous Test Crossmatch 11/13/16 11/15/16 11/15/16 Unknown 00:37 03:30 WBC 11.2 H RBC 2.72 L Hgb 7.6 L Hct 23.4 L MCV MCH MCHC RDW 16.5 H Plt Count Lymph % (Auto) [place] % (Auto) Lymph # [place] # Baso # Seg Neutrophils % Seg Neuts % (Manual) Lymphocytes % (Manual) Monocytes % (Manual) Eosinophils % (Manual) Basophils % (Manual) Nucleated RBC % Seg Neutrophils # Seg Neutrophils # Man Lymphocytes # (Manual) Monocytes # (Manual) Eosinophils # (Manual) Basophils # (Manual) PT INR Fibrinogen dRVVT Confirm Interp Factor V Activity POC ABG pH POC ABG pCO2 POC ABG pO2 ABG pO2 ABG HCO3 ABG Base Excess ABG Hemoglobin Oxyhemoglobin Sodium 135 L Potassium Chloride 95.2 L Carbon Dioxide BUN 52 H Creatinine 2.2 H Glucose POC Glucose 108 H Lactic Acid Calcium Ionized Calcium Phosphorus Magnesium Direct Bilirubin AST ALT Alkaline Phosphatase Lactate Dehydrogenase Troponin T C-Reactive Protein Total Protein Albumin Prealbumin Triglycerides Cholesterol LDL Cholesterol Direct HDL Cholesterol 25-OH Vitamin D Total PTH Intact Urine pH Urine WBC (Auto) Urine Creatinine Urine Total Protein Fluid Total Protein Vancomycin Trough Rheumatoid Factor Complement C4 Miscellaneous Test Crossmatch 11/15/16 11/15/16 11/15/16 03:30 05:04 11:50 WBC RBC Hgb Hct MCV MCH MCHC RDW Plt Count Lymph % (Auto) [place] % (Auto) Lymph # [place] # Baso # Seg Neutrophils % Seg Neuts % (Manual) Lymphocytes % (Manual) Monocytes % (Manual) Eosinophils % (Manual) Basophils % (Manual) Nucleated RBC % Seg Neutrophils # Seg Neutrophils # Man Lymphocytes # (Manual) Monocytes # (Manual) Eosinophils # (Manual) Basophils # (Manual) PT INR Fibrinogen dRVVT Confirm Interp Factor V Activity POC ABG pH POC ABG pCO2 POC ABG pO2 ABG pO2 ABG HCO3 ABG Base Excess ABG Hemoglobin Oxyhemoglobin Sodium Potassium 3.4 L Chloride Carbon Dioxide BUN 25 H Creatinine 1.5 H Glucose 103 H POC Glucose 121 H 144 H Lactic Acid Calcium Ionized Calcium Phosphorus Magnesium Direct Bilirubin AST ALT Alkaline Phosphatase Lactate Dehydrogenase Troponin T C-Reactive Protein Total Protein Albumin Prealbumin Triglycerides Cholesterol LDL Cholesterol Direct HDL Cholesterol 25-OH Vitamin D Total PTH Intact Urine pH Urine WBC (Auto) Urine Creatinine Urine Total Protein Fluid Total Protein Vancomycin Trough Rheumatoid Factor Complement C4 Miscellaneous Test Crossmatch 11/15/16 11/15/16 11/16/16 21:28 23:20 11:44 WBC RBC Hgb Hct MCV MCH MCHC RDW Plt Count Lymph % (Auto) [place] % (Auto) Lymph # [place] # Baso # Seg Neutrophils % Seg Neuts % (Manual) Lymphocytes % (Manual) Monocytes % (Manual) Eosinophils % (Manual) Basophils % (Manual) Nucleated RBC % Seg Neutrophils # Seg Neutrophils # Man Lymphocytes # (Manual) Monocytes # (Manual) Eosinophils # (Manual) Basophils # (Manual) PT INR Fibrinogen dRVVT Confirm Interp Factor V Activity POC ABG pH 7.462 H POC ABG pCO2 POC ABG pO2 71 L ABG pO2 ABG HCO3 ABG Base Excess ABG Hemoglobin Oxyhemoglobin Sodium Potassium Chloride Carbon Dioxide BUN Creatinine Glucose POC Glucose 116 H 133 H Lactic Acid Calcium Ionized Calcium Phosphorus Magnesium Direct Bilirubin AST ALT Alkaline Phosphatase Lactate Dehydrogenase Troponin T C-Reactive Protein Total Protein Albumin Prealbumin Triglycerides Cholesterol LDL Cholesterol Direct HDL Cholesterol 25-OH Vitamin D Total PTH Intact Urine pH Urine WBC (Auto) Urine Creatinine Urine Total Protein Fluid Total Protein Vancomycin Trough Rheumatoid Factor Complement C4 Miscellaneous Test Crossmatch 11/16/16 11/16/16 11/16/16 12:20 17:05 23:35 WBC 11.7 H RBC 2.73 L Hgb 7.6 L Hct 23.7 L MCV MCH MCHC RDW 16.6 H Plt Count Lymph % (Auto) [place] % (Auto) Lymph # [place] # Baso # Seg Neutrophils % Seg Neuts % (Manual) Lymphocytes % (Manual) Monocytes % (Manual) Eosinophils % (Manual) Basophils % (Manual) Nucleated RBC % Seg Neutrophils # Seg Neutrophils # Man Lymphocytes # (Manual) Monocytes # (Manual) Eosinophils # (Manual) Basophils # (Manual) PT INR Fibrinogen dRVVT Confirm Interp Factor V Activity POC ABG pH POC ABG pCO2 POC ABG pO2 ABG pO2 ABG HCO3 ABG Base Excess ABG Hemoglobin Oxyhemoglobin Sodium Potassium Chloride Carbon Dioxide BUN Creatinine Glucose POC Glucose 154 H 125 H Lactic Acid Calcium Ionized Calcium Phosphorus Magnesium Direct Bilirubin AST ALT Alkaline Phosphatase Lactate Dehydrogenase Troponin T C-Reactive Protein Total Protein Albumin Prealbumin Triglycerides Cholesterol LDL Cholesterol Direct HDL Cholesterol 25-OH Vitamin D Total PTH Intact Urine pH Urine WBC (Auto) Urine Creatinine Urine Total Protein Fluid Total Protein Vancomycin Trough Rheumatoid Factor Complement C4 Miscellaneous Test Crossmatch 11/17/16 11/17/16 11/17/16 03:20 03:20 03:20 WBC RBC 2.55 L Hgb 7.3 L Hct 21.9 L MCV MCH MCHC RDW 16.6 H Plt Count Lymph % (Auto) [place] % (Auto) 11.5 H Lymph # [place] # 1.1 H Baso # Seg Neutrophils % Seg Neuts % (Manual) Lymphocytes % (Manual) Monocytes % (Manual) Eosinophils % (Manual) Basophils % (Manual) Nucleated RBC % Seg Neutrophils # Seg Neutrophils # Man Lymphocytes # (Manual) Monocytes # (Manual) Eosinophils # (Manual) Basophils # (Manual) PT 16.8 H INR 1.37 H Fibrinogen dRVVT Confirm Interp Factor V Activity POC ABG pH POC ABG pCO2 POC ABG pO2 ABG pO2 ABG HCO3 ABG Base Excess ABG Hemoglobin Oxyhemoglobin Sodium Potassium 3.5 L Chloride Carbon Dioxide BUN 21 H Creatinine Glucose POC Glucose Lactic Acid Calcium 7.9 L Ionized Calcium Phosphorus Magnesium Direct Bilirubin AST ALT Alkaline Phosphatase Lactate Dehydrogenase Troponin T C-Reactive Protein Total Protein Albumin Prealbumin Triglycerides Cholesterol LDL Cholesterol Direct HDL Cholesterol 25-OH Vitamin D Total PTH Intact Urine pH Urine WBC (Auto) Urine Creatinine Urine Total Protein Fluid Total Protein Vancomycin Trough Rheumatoid Factor Complement C4 Miscellaneous Test Crossmatch 11/17/16 11/17/16 11/17/16 06:34 11:21 21:22 WBC RBC Hgb Hct MCV MCH MCHC RDW Plt Count Lymph % (Auto) [place] % (Auto) Lymph # [place] # Baso # Seg Neutrophils % Seg Neuts % (Manual) Lymphocytes % (Manual) Monocytes % (Manual) Eosinophils % (Manual) Basophils % (Manual) Nucleated RBC % Seg Neutrophils # Seg Neutrophils # Man Lymphocytes # (Manual) Monocytes # (Manual) Eosinophils # (Manual) Basophils # (Manual) PT INR Fibrinogen dRVVT Confirm Interp Factor V Activity POC ABG pH 7.467 H POC ABG pCO2 POC ABG pO2 73 L ABG pO2 ABG HCO3 ABG Base Excess ABG Hemoglobin Oxyhemoglobin Sodium Potassium Chloride Carbon Dioxide BUN Creatinine Glucose POC Glucose 121 H 119 H Lactic Acid Calcium Ionized Calcium Phosphorus Magnesium Direct Bilirubin AST ALT Alkaline Phosphatase Lactate Dehydrogenase Troponin T C-Reactive Protein Total Protein Albumin Prealbumin Triglycerides Cholesterol LDL Cholesterol Direct HDL Cholesterol 25-OH Vitamin D Total PTH Intact Urine pH Urine WBC (Auto) Urine Creatinine Urine Total Protein Fluid Total Protein Vancomycin Trough Rheumatoid Factor Complement C4 Miscellaneous Test Crossmatch 11/18/16 11/18/16 11/19/16 12:16 17:19 00:00 WBC RBC Hgb Hct MCV MCH MCHC RDW Plt Count Lymph % (Auto) [place] % (Auto) Lymph # [place] # Baso # Seg Neutrophils % Seg Neuts % (Manual) Lymphocytes % (Manual) Monocytes % (Manual) Eosinophils % (Manual) Basophils % (Manual) Nucleated RBC % Seg Neutrophils # Seg Neutrophils # Man Lymphocytes # (Manual) Monocytes # (Manual) Eosinophils # (Manual) Basophils # (Manual) PT INR Fibrinogen dRVVT Confirm Interp Factor V Activity POC ABG pH POC ABG pCO2 POC ABG pO2 ABG pO2 ABG HCO3 ABG Base Excess ABG Hemoglobin Oxyhemoglobin Sodium Potassium Chloride Carbon Dioxide BUN Creatinine Glucose POC Glucose 124 H 162 H 139 H Lactic Acid Calcium Ionized Calcium Phosphorus Magnesium Direct Bilirubin AST ALT Alkaline Phosphatase Lactate Dehydrogenase Troponin T C-Reactive Protein Total Protein Albumin Prealbumin Triglycerides Cholesterol LDL Cholesterol Direct HDL Cholesterol 25-OH Vitamin D Total PTH Intact Urine pH Urine WBC (Auto) Urine Creatinine Urine Total Protein Fluid Total Protein Vancomycin Trough Rheumatoid Factor Complement C4 Miscellaneous Test Crossmatch 11/19/16 11/19/16 11/20/16 05:00 12:43 00:40 WBC RBC Hgb Hct MCV MCH MCHC RDW Plt Count Lymph % (Auto) [place] % (Auto) Lymph # [place] # Baso # Seg Neutrophils % Seg Neuts % (Manual) Lymphocytes % (Manual) Monocytes % (Manual) Eosinophils % (Manual) Basophils % (Manual) Nucleated RBC % Seg Neutrophils # Seg Neutrophils # Man Lymphocytes # (Manual) Monocytes # (Manual) Eosinophils # (Manual) Basophils # (Manual) PT INR Fibrinogen dRVVT Confirm Interp Factor V Activity POC ABG pH POC ABG pCO2 POC ABG pO2 ABG pO2 ABG HCO3 ABG Base Excess ABG Hemoglobin Oxyhemoglobin Sodium Potassium Chloride Carbon Dioxide BUN Creatinine Glucose POC Glucose 110 H 125 H 136 H Lactic Acid Calcium Ionized Calcium Phosphorus Magnesium Direct Bilirubin AST ALT Alkaline Phosphatase Lactate Dehydrogenase Troponin T C-Reactive Protein Total Protein Albumin Prealbumin Triglycerides Cholesterol LDL Cholesterol Direct HDL Cholesterol 25-OH Vitamin D Total PTH Intact Urine pH Urine WBC (Auto) Urine Creatinine Urine Total Protein Fluid Total Protein Vancomycin Trough Rheumatoid Factor Complement C4 Miscellaneous Test Crossmatch 11/20/16 11/20/16 11/20/16 05:00 05:00 05:51 WBC 13.1 H RBC 2.74 L Hgb 7.7 L Hct 23.6 L MCV MCH MCHC RDW 16.9 H Plt Count Lymph % (Auto) [place] % (Auto) 10.8 H Lymph # [place] # 1.4 H Baso # Seg Neutrophils % Seg Neuts % (Manual) Lymphocytes % (Manual) Monocytes % (Manual) Eosinophils % (Manual) Basophils % (Manual) Nucleated RBC % Seg Neutrophils # 7.9 H Seg Neutrophils # Man Lymphocytes # (Manual) Monocytes # (Manual) Eosinophils # (Manual) Basophils # (Manual) PT INR Fibrinogen dRVVT Confirm Interp Factor V Activity POC ABG pH POC ABG pCO2 POC ABG pO2 ABG pO2 ABG HCO3 ABG Base Excess ABG Hemoglobin Oxyhemoglobin Sodium Potassium Chloride Carbon Dioxide BUN 31 H Creatinine 1.8 H Glucose 129 H POC Glucose 133 H Lactic Acid Calcium Ionized Calcium Phosphorus Magnesium Direct Bilirubin AST ALT Alkaline Phosphatase Lactate Dehydrogenase Troponin T C-Reactive Protein Total Protein Albumin Prealbumin Triglycerides Cholesterol LDL Cholesterol Direct HDL Cholesterol 25-OH Vitamin D Total PTH Intact Urine pH Urine WBC (Auto) Urine Creatinine Urine Total Protein Fluid Total Protein Vancomycin Trough Rheumatoid Factor Complement C4 Miscellaneous Test Crossmatch 11/20/16 11/20/16 11/21/16 12:40 18:10 01:20 WBC RBC Hgb Hct MCV MCH MCHC RDW Plt Count Lymph % (Auto) [place] % (Auto) Lymph # [place] # Baso # Seg Neutrophils % Seg Neuts % (Manual) Lymphocytes % (Manual) Monocytes % (Manual) Eosinophils % (Manual) Basophils % (Manual) Nucleated RBC % Seg Neutrophils # Seg Neutrophils # Man Lymphocytes # (Manual) Monocytes # (Manual) Eosinophils # (Manual) Basophils # (Manual) PT INR Fibrinogen dRVVT Confirm Interp Factor V Activity POC ABG pH POC ABG pCO2 POC ABG pO2 ABG pO2 ABG HCO3 ABG Base Excess ABG Hemoglobin Oxyhemoglobin Sodium Potassium Chloride Carbon Dioxide BUN Creatinine Glucose POC Glucose 134 H 138 H 136 H Lactic Acid Calcium Ionized Calcium Phosphorus Magnesium Direct Bilirubin AST ALT Alkaline Phosphatase Lactate Dehydrogenase Troponin T C-Reactive Protein Total Protein Albumin Prealbumin Triglycerides Cholesterol LDL Cholesterol Direct HDL Cholesterol 25-OH Vitamin D Total PTH Intact Urine pH Urine WBC (Auto) Urine Creatinine Urine Total Protein Fluid Total Protein Vancomycin Trough Rheumatoid Factor Complement C4 Miscellaneous Test Crossmatch 11/21/16 11/21/16 11/21/16 07:04 07:45 07:45 WBC 22.0 H RBC 2.91 L Hgb 8.2 L Hct 25.4 L MCV MCH MCHC RDW 17.1 H Plt Count Lymph % (Auto) [place] % (Auto) Lymph # [place] # Baso # Seg Neutrophils % Seg Neuts % (Manual) Lymphocytes % (Manual) 8.0 L Monocytes % (Manual) Eosinophils % (Manual) Basophils % (Manual) Nucleated RBC % Seg Neutrophils # Seg Neutrophils # Man 14.7 H Lymphocytes # (Manual) Monocytes # (Manual) 1.1 H Eosinophils # (Manual) Basophils # (Manual) PT INR Fibrinogen dRVVT Confirm Interp Factor V Activity POC ABG pH POC ABG pCO2 POC ABG pO2 ABG pO2 ABG HCO3 ABG Base Excess ABG Hemoglobin Oxyhemoglobin Sodium Potassium Chloride Carbon Dioxide BUN 42 H Creatinine 2.0 H Glucose POC Glucose 108 H Lactic Acid Calcium Ionized Calcium Phosphorus Magnesium Direct Bilirubin AST ALT Alkaline Phosphatase Lactate Dehydrogenase Troponin T C-Reactive Protein Total Protein Albumin Prealbumin Triglycerides Cholesterol LDL Cholesterol Direct HDL Cholesterol 25-OH Vitamin D Total PTH Intact Urine pH Urine WBC (Auto) Urine Creatinine Urine Total Protein Fluid Total Protein Vancomycin Trough Rheumatoid Factor Complement C4 Miscellaneous Test Crossmatch 11/21/16 11/21/16 11/21/16 08:38 10:09 11:20 WBC RBC Hgb Hct MCV MCH MCHC RDW Plt Count Lymph % (Auto) [place] % (Auto) Lymph # [place] # Baso # Seg Neutrophils % Seg Neuts % (Manual) Lymphocytes % (Manual) Monocytes % (Manual) Eosinophils % (Manual) Basophils % (Manual) Nucleated RBC % Seg Neutrophils # Seg Neutrophils # Man Lymphocytes # (Manual) Monocytes # (Manual) Eosinophils # (Manual) Basophils # (Manual) PT INR Fibrinogen dRVVT Confirm Interp Factor V Activity POC ABG pH 7.346 L POC ABG pCO2 34.4 L POC ABG pO2 314 H ABG pO2 ABG HCO3 ABG Base Excess ABG Hemoglobin Oxyhemoglobin Sodium Potassium Chloride Carbon Dioxide BUN Creatinine Glucose POC Glucose 195 H 153 H Lactic Acid Calcium Ionized Calcium Phosphorus Magnesium Direct Bilirubin AST ALT Alkaline Phosphatase Lactate Dehydrogenase Troponin T C-Reactive Protein Total Protein Albumin Prealbumin Triglycerides Cholesterol LDL Cholesterol Direct HDL Cholesterol 25-OH Vitamin D Total PTH Intact Urine pH Urine WBC (Auto) Urine Creatinine Urine Total Protein Fluid Total Protein Vancomycin Trough Rheumatoid Factor Complement C4 Miscellaneous Test Crossmatch 11/21/16 11/22/16 11/22/16 23:37 04:48 05:00 WBC 29.7 H RBC 2.73 L Hgb 7.5 L Hct 24.2 L MCV MCH 27 L MCHC RDW 17.4 H Plt Count Lymph % (Auto) [place] % (Auto) Lymph # [place] # Baso # Seg Neutrophils % Seg Neuts % (Manual) Lymphocytes % (Manual) 7.0 L Monocytes % (Manual) Eosinophils % (Manual) Basophils % (Manual) Nucleated RBC % Seg Neutrophils # Seg Neutrophils # Man 15.4 H Lymphocytes # (Manual) Monocytes # (Manual) Eosinophils # (Manual) Basophils # (Manual) PT INR Fibrinogen dRVVT Confirm Interp Factor V Activity POC ABG pH POC ABG pCO2 24.6 L POC ABG pO2 189 H ABG pO2 ABG HCO3 ABG Base Excess ABG Hemoglobin Oxyhemoglobin Sodium Potassium Chloride Carbon Dioxide BUN Creatinine Glucose POC Glucose 65 L Lactic Acid Calcium Ionized Calcium Phosphorus Magnesium Direct Bilirubin AST ALT Alkaline Phosphatase Lactate Dehydrogenase Troponin T C-Reactive Protein Total Protein Albumin Prealbumin Triglycerides Cholesterol LDL Cholesterol Direct HDL Cholesterol 25-OH Vitamin D Total PTH Intact Urine pH Urine WBC (Auto) Urine Creatinine Urine Total Protein Fluid Total Protein Vancomycin Trough Rheumatoid Factor Complement C4 Miscellaneous Test Crossmatch 11/22/16 11/23/16 11/23/16 05:00 03:44 04:06 WBC RBC 2.52 L Hgb 7.2 L Hct 21.5 L MCV MCH MCHC RDW 17.1 H Plt Count Lymph % (Auto) [place] % (Auto) 12.4 H Lymph # [place] # 1.4 H Baso # Seg Neutrophils % Seg Neuts % (Manual) Lymphocytes % (Manual) Monocytes % (Manual) Eosinophils % (Manual) Basophils % (Manual) Nucleated RBC % Seg Neutrophils # Seg Neutrophils # Man Lymphocytes # (Manual) Monocytes # (Manual) Eosinophils # (Manual) Basophils # (Manual) PT INR Fibrinogen dRVVT Confirm Interp Factor V Activity POC ABG pH 7.493 H POC ABG pCO2 29.5 L POC ABG pO2 49 L ABG pO2 ABG HCO3 ABG Base Excess ABG Hemoglobin Oxyhemoglobin Sodium 134 L Potassium Chloride 95.9 L Carbon Dioxide 14 L D BUN 51 H Creatinine 2.6 H Glucose POC Glucose Lactic Acid Calcium Ionized Calcium Phosphorus Magnesium Direct Bilirubin AST ALT Alkaline Phosphatase Lactate Dehydrogenase Troponin T C-Reactive Protein Total Protein Albumin Prealbumin Triglycerides Cholesterol LDL Cholesterol Direct HDL Cholesterol 25-OH Vitamin D Total PTH Intact Urine pH Urine WBC (Auto) Urine Creatinine Urine Total Protein Fluid Total Protein Vancomycin Trough Rheumatoid Factor Complement C4 Miscellaneous Test Crossmatch 11/23/16 11/23/16 11/24/16 04:06 11:29 06:39 WBC RBC Hgb Hct MCV MCH MCHC RDW Plt Count Lymph % (Auto) [place] % (Auto) Lymph # [place] # Baso # Seg Neutrophils % Seg Neuts % (Manual) Lymphocytes % (Manual) Monocytes % (Manual) Eosinophils % (Manual) Basophils % (Manual) Nucleated RBC % Seg Neutrophils # Seg Neutrophils # Man Lymphocytes # (Manual) Monocytes # (Manual) Eosinophils # (Manual) Basophils # (Manual) PT INR Fibrinogen dRVVT Confirm Interp Factor V Activity POC ABG pH POC ABG pCO2 POC ABG pO2 ABG pO2 ABG HCO3 ABG Base Excess ABG Hemoglobin Oxyhemoglobin Sodium 136 L Potassium Chloride 95.2 L Carbon Dioxide BUN 60 H Creatinine 2.9 H Glucose POC Glucose 69 L 305 H Lactic Acid Calcium Ionized Calcium Phosphorus Magnesium 1.60 L Direct Bilirubin AST ALT Alkaline Phosphatase Lactate Dehydrogenase Troponin T C-Reactive Protein Total Protein Albumin Prealbumin Triglycerides Cholesterol LDL Cholesterol Direct HDL Cholesterol 25-OH Vitamin D Total PTH Intact Urine pH Urine WBC (Auto) Urine Creatinine Urine Total Protein Fluid Total Protein Vancomycin Trough Rheumatoid Factor Complement C4 Miscellaneous Test Crossmatch 11/24/16 11/24/16 11/24/16 06:43 08:08 08:08 WBC 11.2 H RBC 2.47 L Hgb 6.8 L Hct 20.6 L MCV MCH MCHC RDW 17.0 H Plt Count Lymph % (Auto) [place] % (Auto) 10.3 H Lymph # [place] # 1.2 H Baso # Seg Neutrophils % Seg Neuts % (Manual) Lymphocytes % (Manual) Monocytes % (Manual) Eosinophils % (Manual) Basophils % (Manual) Nucleated RBC % Seg Neutrophils # Seg Neutrophils # Man Lymphocytes # (Manual) Monocytes # (Manual) Eosinophils # (Manual) Basophils # (Manual) PT INR Fibrinogen dRVVT Confirm Interp Factor V Activity POC ABG pH POC ABG pCO2 POC ABG pO2 ABG pO2 ABG HCO3 ABG Base Excess ABG Hemoglobin Oxyhemoglobin Sodium 135 L Potassium Chloride 96.3 L Carbon Dioxide BUN 61 H Creatinine 3.1 H Glucose POC Glucose 62 L Lactic Acid Calcium 8.2 L Ionized Calcium Phosphorus Magnesium Direct Bilirubin AST ALT Alkaline Phosphatase Lactate Dehydrogenase Troponin T C-Reactive Protein Total Protein Albumin Prealbumin Triglycerides Cholesterol LDL Cholesterol Direct HDL Cholesterol 25-OH Vitamin D Total PTH Intact Urine pH Urine WBC (Auto) Urine Creatinine Urine Total Protein Fluid Total Protein Vancomycin Trough Rheumatoid Factor Complement C4 Miscellaneous Test Crossmatch 11/24/16 11/24/16 11/24/16 08:34 11:20 12:41 WBC RBC Hgb Hct MCV MCH MCHC RDW Plt Count Lymph % (Auto) [place] % (Auto) Lymph # [place] # Baso # Seg Neutrophils % Seg Neuts % (Manual) Lymphocytes % (Manual) Monocytes % (Manual) Eosinophils % (Manual) Basophils % (Manual) Nucleated RBC % Seg Neutrophils # Seg Neutrophils # Man Lymphocytes # (Manual) Monocytes # (Manual) Eosinophils # (Manual) Basophils # (Manual) PT INR Fibrinogen dRVVT Confirm Interp Factor V Activity POC ABG pH POC ABG pCO2 POC ABG pO2 ABG pO2 ABG HCO3 ABG Base Excess ABG Hemoglobin Oxyhemoglobin Sodium Potassium Chloride Carbon Dioxide BUN Creatinine Glucose POC Glucose 108 H Lactic Acid Calcium Ionized Calcium Phosphorus Magnesium 1.60 L Direct Bilirubin AST ALT Alkaline Phosphatase Lactate Dehydrogenase Troponin T C-Reactive Protein Total Protein Albumin Prealbumin Triglycerides Cholesterol LDL Cholesterol Direct HDL Cholesterol 25-OH Vitamin D Total PTH Intact Urine pH Urine WBC (Auto) Urine Creatinine Urine Total Protein Fluid Total Protein Vancomycin Trough Rheumatoid Factor Complement C4 Miscellaneous Test Crossmatch See Detail 11/25/16 11/25/16 11/25/16 00:03 04:42 04:42 WBC RBC 3.03 L Hgb 8.6 L Hct 25.3 L MCV MCH MCHC RDW 16.2 H Plt Count Lymph % (Auto) [place] % (Auto) 8.1 H Lymph # [place] # Baso # Seg Neutrophils % 71.3 H Seg Neuts % (Manual) Lymphocytes % (Manual) Monocytes % (Manual) Eosinophils % (Manual) Basophils % (Manual) Nucleated RBC % Seg Neutrophils # Seg Neutrophils # Man Lymphocytes # (Manual) Monocytes # (Manual) Eosinophils # (Manual) Basophils # (Manual) PT INR Fibrinogen dRVVT Confirm Interp Factor V Activity POC ABG pH POC ABG pCO2 POC ABG pO2 ABG pO2 ABG HCO3 ABG Base Excess ABG Hemoglobin Oxyhemoglobin Sodium Potassium Chloride Carbon Dioxide BUN 61 H Creatinine 3.0 H Glucose 102 H POC Glucose 113 H Lactic Acid Calcium 8.2 L Ionized Calcium Phosphorus Magnesium Direct Bilirubin AST ALT Alkaline Phosphatase 142 H Lactate Dehydrogenase Troponin T C-Reactive Protein Total Protein 5.7 L Albumin 1.5 L Prealbumin Triglycerides Cholesterol LDL Cholesterol Direct HDL Cholesterol 25-OH Vitamin D Total PTH Intact Urine pH Urine WBC (Auto) Urine Creatinine Urine Total Protein Fluid Total Protein Vancomycin Trough Rheumatoid Factor Complement C4 Miscellaneous Test Crossmatch 11/25/16 11/25/16 11/25/16 05:12 11:31 14:12 WBC RBC Hgb Hct MCV MCH MCHC RDW Plt Count Lymph % (Auto) [place] % (Auto) Lymph # [place] # Baso # Seg Neutrophils % Seg Neuts % (Manual) Lymphocytes % (Manual) Monocytes % (Manual) Eosinophils % (Manual) Basophils % (Manual) Nucleated RBC % Seg Neutrophils # Seg Neutrophils # Man Lymphocytes # (Manual) Monocytes # (Manual) Eosinophils # (Manual) Basophils # (Manual) PT INR Fibrinogen dRVVT Confirm Interp Factor V Activity POC ABG pH 7.487 H POC ABG pCO2 POC ABG pO2 153 H ABG pO2 ABG HCO3 ABG Base Excess ABG Hemoglobin Oxyhemoglobin Sodium Potassium Chloride Carbon Dioxide BUN Creatinine Glucose POC Glucose 131 H 140 H Lactic Acid Calcium Ionized Calcium Phosphorus Magnesium Direct Bilirubin AST ALT Alkaline Phosphatase Lactate Dehydrogenase Troponin T C-Reactive Protein Total Protein Albumin Prealbumin Triglycerides Cholesterol LDL Cholesterol Direct HDL Cholesterol 25-OH Vitamin D Total PTH Intact Urine pH Urine WBC (Auto) Urine Creatinine Urine Total Protein Fluid Total Protein Vancomycin Trough Rheumatoid Factor Complement C4 Miscellaneous Test Crossmatch 11/25/16 11/26/16 11/26/16 17:23 00:09 05:13 WBC RBC 2.94 L Hgb 8.4 L Hct 24.6 L MCV MCH MCHC RDW 16.4 H Plt Count Lymph % (Auto) [place] % (Auto) 12.3 H Lymph # [place] # 1.1 H Baso # Seg Neutrophils % Seg Neuts % (Manual) Lymphocytes % (Manual) Monocytes % (Manual) Eosinophils % (Manual) Basophils % (Manual) Nucleated RBC % Seg Neutrophils # Seg Neutrophils # Man Lymphocytes # (Manual) Monocytes # (Manual) Eosinophils # (Manual) Basophils # (Manual) PT INR Fibrinogen dRVVT Confirm Interp Factor V Activity POC ABG pH POC ABG pCO2 POC ABG pO2 ABG pO2 ABG HCO3 ABG Base Excess ABG Hemoglobin Oxyhemoglobin Sodium Potassium Chloride Carbon Dioxide BUN Creatinine Glucose POC Glucose 146 H 112 H Lactic Acid Calcium Ionized Calcium Phosphorus Magnesium Direct Bilirubin AST ALT Alkaline Phosphatase Lactate Dehydrogenase Troponin T C-Reactive Protein Total Protein Albumin Prealbumin Triglycerides Cholesterol LDL Cholesterol Direct HDL Cholesterol 25-OH Vitamin D Total PTH Intact Urine pH Urine WBC (Auto) Urine Creatinine Urine Total Protein Fluid Total Protein Vancomycin Trough Rheumatoid Factor Complement C4 Miscellaneous Test Crossmatch 11/26/16 11/26/16 11/26/16 05:13 05:28 11:53 WBC RBC Hgb Hct MCV MCH MCHC RDW Plt Count Lymph % (Auto) [place] % (Auto) Lymph # [place] # Baso # Seg Neutrophils % Seg Neuts % (Manual) Lymphocytes % (Manual) Monocytes % (Manual) Eosinophils % (Manual) Basophils % (Manual) Nucleated RBC % Seg Neutrophils # Seg Neutrophils # Man Lymphocytes # (Manual) Monocytes # (Manual) Eosinophils # (Manual) Basophils # (Manual) PT INR Fibrinogen dRVVT Confirm Interp Factor V Activity POC ABG pH POC ABG pCO2 POC ABG pO2 ABG pO2 ABG HCO3 ABG Base Excess ABG Hemoglobin Oxyhemoglobin Sodium Potassium Chloride 97.8 L Carbon Dioxide BUN 37 H Creatinine 2.0 H Glucose 109 H POC Glucose 117 H 111 H Lactic Acid Calcium 7.9 L Ionized Calcium Phosphorus 1.80 L D Magnesium Direct Bilirubin AST ALT Alkaline Phosphatase Lactate Dehydrogenase Troponin T C-Reactive Protein Total Protein Albumin Prealbumin Triglycerides Cholesterol LDL Cholesterol Direct HDL Cholesterol 25-OH Vitamin D Total PTH Intact Urine pH Urine WBC (Auto) Urine Creatinine Urine Total Protein Fluid Total Protein Vancomycin Trough Rheumatoid Factor Complement C4 Miscellaneous Test Crossmatch 11/26/16 11/27/16 11/27/16 17:14 04:50 06:02 WBC RBC Hgb Hct MCV MCH MCHC RDW Plt Count Lymph % (Auto) [place] % (Auto) Lymph # [place] # Baso # Seg Neutrophils % Seg Neuts % (Manual) Lymphocytes % (Manual) Monocytes % (Manual) Eosinophils % (Manual) Basophils % (Manual) Nucleated RBC % Seg Neutrophils # Seg Neutrophils # Man Lymphocytes # (Manual) Monocytes # (Manual) Eosinophils # (Manual) Basophils # (Manual) PT INR Fibrinogen dRVVT Confirm Interp Factor V Activity POC ABG pH POC ABG pCO2 POC ABG pO2 ABG pO2 75.2 L ABG HCO3 26.4 H ABG Base Excess ABG Hemoglobin 7.6 L Oxyhemoglobin 94.8 L Sodium Potassium Chloride Carbon Dioxide BUN 49 H Creatinine 2.3 H Glucose POC Glucose 115 H Lactic Acid Calcium Ionized Calcium Phosphorus 1.50 L Magnesium Direct Bilirubin AST ALT Alkaline Phosphatase Lactate Dehydrogenase Troponin T C-Reactive Protein Total Protein Albumin Prealbumin Triglycerides Cholesterol LDL Cholesterol Direct HDL Cholesterol 25-OH Vitamin D Total PTH Intact Urine pH Urine WBC (Auto) Urine Creatinine Urine Total Protein Fluid Total Protein Vancomycin Trough Rheumatoid Factor Complement C4 Miscellaneous Test Crossmatch 11/27/16 11/27/16 11/27/16 06:02 11:25 17:25 WBC 11.6 H RBC 2.75 L Hgb 7.6 L Hct 23.4 L MCV MCH MCHC RDW 16.5 H Plt Count Lymph % (Auto) [place] % (Auto) Lymph # [place] # Baso # Seg Neutrophils % Seg Neuts % (Manual) Lymphocytes % (Manual) Monocytes % (Manual) Eosinophils % (Manual) Basophils % (Manual) Nucleated RBC % Seg Neutrophils # Seg Neutrophils # Man Lymphocytes # (Manual) Monocytes # (Manual) Eosinophils # (Manual) Basophils # (Manual) PT INR Fibrinogen dRVVT Confirm Interp Factor V Activity POC ABG pH POC ABG pCO2 POC ABG pO2 ABG pO2 ABG HCO3 ABG Base Excess ABG Hemoglobin Oxyhemoglobin Sodium Potassium Chloride Carbon Dioxide BUN Creatinine Glucose POC Glucose 114 H 126 H Lactic Acid Calcium Ionized Calcium Phosphorus Magnesium Direct Bilirubin AST ALT Alkaline Phosphatase Lactate Dehydrogenase Troponin T C-Reactive Protein Total Protein Albumin Prealbumin Triglycerides Cholesterol LDL Cholesterol Direct HDL Cholesterol 25-OH Vitamin D Total PTH Intact Urine pH Urine WBC (Auto) Urine Creatinine Urine Total Protein Fluid Total Protein Vancomycin Trough Rheumatoid Factor Complement C4 Miscellaneous Test Crossmatch 11/28/16 11/28/16 11/28/16 04:45 05:33 05:44 WBC RBC Hgb Hct MCV MCH MCHC RDW Plt Count Lymph % (Auto) [place] % (Auto) Lymph # [place] # Baso # Seg Neutrophils % Seg Neuts % (Manual) Lymphocytes % (Manual) Monocytes % (Manual) Eosinophils % (Manual) Basophils % (Manual) Nucleated RBC % Seg Neutrophils # Seg Neutrophils # Man Lymphocytes # (Manual) Monocytes # (Manual) Eosinophils # (Manual) Basophils # (Manual) PT INR Fibrinogen dRVVT Confirm Interp Factor V Activity POC ABG pH POC ABG pCO2 POC ABG pO2 ABG pO2 99.3 H ABG HCO3 ABG Base Excess ABG Hemoglobin 8.3 L Oxyhemoglobin Sodium Potassium Chloride Carbon Dioxide BUN 63 H Creatinine 2.4 H Glucose 102 H POC Glucose 108 H Lactic Acid Calcium Ionized Calcium Phosphorus 1.80 L Magnesium Direct Bilirubin AST ALT Alkaline Phosphatase Lactate Dehydrogenase Troponin T C-Reactive Protein Total Protein Albumin Prealbumin Triglycerides Cholesterol LDL Cholesterol Direct HDL Cholesterol 25-OH Vitamin D Total PTH Intact Urine pH Urine WBC (Auto) Urine Creatinine Urine Total Protein Fluid Total Protein Vancomycin Trough Rheumatoid Factor Complement C4 Miscellaneous Test Crossmatch 11/28/16 11/28/16 11/28/16 12:31 16:09 23:46 WBC RBC Hgb Hct MCV MCH MCHC RDW Plt Count Lymph % (Auto) [place] % (Auto) Lymph # [place] # Baso # Seg Neutrophils % Seg Neuts % (Manual) Lymphocytes % (Manual) Monocytes % (Manual) Eosinophils % (Manual) Basophils % (Manual) Nucleated RBC % Seg Neutrophils # Seg Neutrophils # Man Lymphocytes # (Manual) Monocytes # (Manual) Eosinophils # (Manual) Basophils # (Manual) PT INR Fibrinogen dRVVT Confirm Interp Factor V Activity POC ABG pH POC ABG pCO2 POC ABG pO2 ABG pO2 ABG HCO3 ABG Base Excess ABG Hemoglobin Oxyhemoglobin Sodium Potassium Chloride Carbon Dioxide BUN Creatinine Glucose POC Glucose 126 H 111 H 119 H Lactic Acid Calcium Ionized Calcium Phosphorus Magnesium Direct Bilirubin AST ALT Alkaline Phosphatase Lactate Dehydrogenase Troponin T C-Reactive Protein Total Protein Albumin Prealbumin Triglycerides Cholesterol LDL Cholesterol Direct HDL Cholesterol 25-OH Vitamin D Total PTH Intact Urine pH Urine WBC (Auto) Urine Creatinine Urine Total Protein Fluid Total Protein Vancomycin Trough Rheumatoid Factor Complement C4 Miscellaneous Test Crossmatch 11/29/16 11/29/16 11/29/16 03:33 04:52 05:10 WBC RBC Hgb Hct MCV MCH MCHC RDW Plt Count Lymph % (Auto) [place] % (Auto) Lymph # [place] # Baso # Seg Neutrophils % Seg Neuts % (Manual) Lymphocytes % (Manual) Monocytes % (Manual) Eosinophils % (Manual) Basophils % (Manual) Nucleated RBC % Seg Neutrophils # Seg Neutrophils # Man Lymphocytes # (Manual) Monocytes # (Manual) Eosinophils # (Manual) Basophils # (Manual) PT INR Fibrinogen dRVVT Confirm Interp Factor V Activity POC ABG pH POC ABG pCO2 POC ABG pO2 ABG pO2 ABG HCO3 ABG Base Excess ABG Hemoglobin 7.0 L Oxyhemoglobin 94.9 L Sodium Potassium Chloride Carbon Dioxide BUN 73 H Creatinine 2.7 H Glucose POC Glucose 108 H Lactic Acid Calcium Ionized Calcium Phosphorus Magnesium Direct Bilirubin AST ALT Alkaline Phosphatase Lactate Dehydrogenase Troponin T C-Reactive Protein Total Protein Albumin Prealbumin Triglycerides Cholesterol LDL Cholesterol Direct HDL Cholesterol 25-OH Vitamin D Total PTH Intact Urine pH Urine WBC (Auto) Urine Creatinine Urine Total Protein Fluid Total Protein Vancomycin Trough Rheumatoid Factor Complement C4 Miscellaneous Test Crossmatch 11/29/16 11/29/16 11/29/16 12:16 18:05 23:46 WBC RBC Hgb Hct MCV MCH MCHC RDW Plt Count Lymph % (Auto) [place] % (Auto) Lymph # [place] # Baso # Seg Neutrophils % Seg Neuts % (Manual) Lymphocytes % (Manual) Monocytes % (Manual) Eosinophils % (Manual) Basophils % (Manual) Nucleated RBC % Seg Neutrophils # Seg Neutrophils # Man Lymphocytes # (Manual) Monocytes # (Manual) Eosinophils # (Manual) Basophils # (Manual) PT INR Fibrinogen dRVVT Confirm Interp Factor V Activity POC ABG pH POC ABG pCO2 POC ABG pO2 ABG pO2 ABG HCO3 ABG Base Excess ABG Hemoglobin Oxyhemoglobin Sodium Potassium Chloride Carbon Dioxide BUN Creatinine Glucose POC Glucose 133 H 146 H 141 H Lactic Acid Calcium Ionized Calcium Phosphorus Magnesium Direct Bilirubin AST ALT Alkaline Phosphatase Lactate Dehydrogenase Troponin T C-Reactive Protein Total Protein Albumin Prealbumin Triglycerides Cholesterol LDL Cholesterol Direct HDL Cholesterol 25-OH Vitamin D Total PTH Intact Urine pH Urine WBC (Auto) Urine Creatinine Urine Total Protein Fluid Total Protein Vancomycin Trough Rheumatoid Factor Complement C4 Miscellaneous Test Crossmatch 11/30/16 11/30/16 11/30/16 04:17 04:17 04:32 WBC 12.0 H RBC 2.80 L Hgb 7.8 L Hct 23.6 L MCV MCH MCHC RDW 16.6 H Plt Count Lymph % (Auto) [place] % (Auto) 11.3 H Lymph # [place] # 1.4 H Baso # Seg Neutrophils % Seg Neuts % (Manual) Lymphocytes % (Manual) Monocytes % (Manual) Eosinophils % (Manual) Basophils % (Manual) Nucleated RBC % Seg Neutrophils # 8.2 H Seg Neutrophils # Man Lymphocytes # (Manual) Monocytes # (Manual) Eosinophils # (Manual) Basophils # (Manual) PT INR Fibrinogen dRVVT Confirm Interp Factor V Activity POC ABG pH POC ABG pCO2 POC ABG pO2 ABG pO2 ABG HCO3 ABG Base Excess ABG Hemoglobin Oxyhemoglobin Sodium 169 H* D Potassium 5.1 H Chloride 121.5 H Carbon Dioxide BUN 34 H Creatinine 1.3 H D Glucose 133 H POC Glucose 131 H Lactic Acid Calcium 10.3 H Ionized Calcium Phosphorus Magnesium Direct Bilirubin AST ALT Alkaline Phosphatase Lactate Dehydrogenase Troponin T C-Reactive Protein Total Protein Albumin Prealbumin Triglycerides Cholesterol LDL Cholesterol Direct HDL Cholesterol 25-OH Vitamin D Total PTH Intact Urine pH Urine WBC (Auto) Urine Creatinine Urine Total Protein Fluid Total Protein Vancomycin Trough Rheumatoid Factor Complement C4 Miscellaneous Test Crossmatch 11/30/16 11/30/16 11/30/16 05:45 11:10 17:26 WBC RBC Hgb Hct MCV MCH MCHC RDW Plt Count Lymph % (Auto) [place] % (Auto) Lymph # [place] # Baso # Seg Neutrophils % Seg Neuts % (Manual) Lymphocytes % (Manual) Monocytes % (Manual) Eosinophils % (Manual) Basophils % (Manual) Nucleated RBC % Seg Neutrophils # Seg Neutrophils # Man Lymphocytes # (Manual) Monocytes # (Manual) Eosinophils # (Manual) Basophils # (Manual) PT INR Fibrinogen dRVVT Confirm Interp Factor V Activity POC ABG pH POC ABG pCO2 POC ABG pO2 ABG pO2 ABG HCO3 ABG Base Excess ABG Hemoglobin Oxyhemoglobin Sodium Potassium Chloride Carbon Dioxide BUN 45 H Creatinine 1.6 H Glucose 131 H POC Glucose 146 H 134 H Lactic Acid Calcium Ionized Calcium Phosphorus Magnesium Direct Bilirubin AST ALT Alkaline Phosphatase Lactate Dehydrogenase Troponin T C-Reactive Protein Total Protein Albumin Prealbumin Triglycerides Cholesterol LDL Cholesterol Direct HDL Cholesterol 25-OH Vitamin D Total PTH Intact Urine pH Urine WBC (Auto) Urine Creatinine Urine Total Protein Fluid Total Protein Vancomycin Trough Rheumatoid Factor Complement C4 Miscellaneous Test Crossmatch 11/30/16 12/01/16 12/01/16 23:35 00:06 03:35 WBC RBC Hgb Hct MCV MCH MCHC RDW Plt Count Lymph % (Auto) [place] % (Auto) Lymph # [place] # Baso # Seg Neutrophils % Seg Neuts % (Manual) Lymphocytes % (Manual) Monocytes % (Manual) Eosinophils % (Manual) Basophils % (Manual) Nucleated RBC % Seg Neutrophils # Seg Neutrophils # Man Lymphocytes # (Manual) Monocytes # (Manual) Eosinophils # (Manual) Basophils # (Manual) PT INR Fibrinogen dRVVT Confirm Interp Factor V Activity POC ABG pH POC ABG pCO2 POC ABG pO2 ABG pO2 ABG HCO3 ABG Base Excess ABG Hemoglobin 6.9 L Oxyhemoglobin Sodium Potassium Chloride Carbon Dioxide BUN 58 H Creatinine 1.8 H Glucose 146 H POC Glucose 151 H Lactic Acid Calcium Ionized Calcium Phosphorus Magnesium Direct Bilirubin AST ALT Alkaline Phosphatase Lactate Dehydrogenase Troponin T C-Reactive Protein Total Protein Albumin Prealbumin Triglycerides Cholesterol LDL Cholesterol Direct HDL Cholesterol 25-OH Vitamin D Total PTH Intact Urine pH Urine WBC (Auto) Urine Creatinine Urine Total Protein Fluid Total Protein Vancomycin Trough Rheumatoid Factor Complement C4 Miscellaneous Test Crossmatch 12/01/16 12/01/16 12/01/16 03:35 05:47 11:52 WBC 12.3 H RBC 2.82 L Hgb 7.8 L Hct 23.7 L MCV MCH MCHC RDW 16.7 H Plt Count Lymph % (Auto) [place] % (Auto) 9.8 H Lymph # [place] # 1.2 H Baso # Seg Neutrophils % Seg Neuts % (Manual) Lymphocytes % (Manual) Monocytes % (Manual) Eosinophils % (Manual) Basophils % (Manual) Nucleated RBC % Seg Neutrophils # 8.4 H Seg Neutrophils # Man Lymphocytes # (Manual) Monocytes # (Manual) Eosinophils # (Manual) Basophils # (Manual) PT INR Fibrinogen dRVVT Confirm Interp Factor V Activity POC ABG pH POC ABG pCO2 POC ABG pO2 ABG pO2 ABG HCO3 ABG Base Excess ABG Hemoglobin Oxyhemoglobin Sodium Potassium Chloride Carbon Dioxide BUN Creatinine Glucose POC Glucose 152 H 152 H Lactic Acid Calcium Ionized Calcium Phosphorus Magnesium Direct Bilirubin AST ALT Alkaline Phosphatase Lactate Dehydrogenase Troponin T C-Reactive Protein Total Protein Albumin Prealbumin Triglycerides Cholesterol LDL Cholesterol Direct HDL Cholesterol 25-OH Vitamin D Total PTH Intact Urine pH Urine WBC (Auto) Urine Creatinine Urine Total Protein Fluid Total Protein Vancomycin Trough Rheumatoid Factor Complement C4 Miscellaneous Test Crossmatch 12/01/16 12/01/16 12/02/16 17:40 23:41 05:00 WBC RBC Hgb Hct MCV MCH MCHC RDW Plt Count Lymph % (Auto) [place] % (Auto) Lymph # [place] # Baso # Seg Neutrophils % Seg Neuts % (Manual) Lymphocytes % (Manual) Monocytes % (Manual) Eosinophils % (Manual) Basophils % (Manual) Nucleated RBC % Seg Neutrophils # Seg Neutrophils # Man Lymphocytes # (Manual) Monocytes # (Manual) Eosinophils # (Manual) Basophils # (Manual) PT INR Fibrinogen dRVVT Confirm Interp Factor V Activity POC ABG pH POC ABG pCO2 POC ABG pO2 ABG pO2 ABG HCO3 ABG Base Excess ABG Hemoglobin Oxyhemoglobin Sodium Potassium Chloride Carbon Dioxide BUN 45 H Creatinine Glucose 115 H POC Glucose 140 H 144 H Lactic Acid Calcium Ionized Calcium Phosphorus Magnesium Direct Bilirubin AST ALT Alkaline Phosphatase Lactate Dehydrogenase Troponin T C-Reactive Protein Total Protein Albumin Prealbumin Triglycerides Cholesterol LDL Cholesterol Direct HDL Cholesterol 25-OH Vitamin D Total PTH Intact Urine pH Urine WBC (Auto) Urine Creatinine Urine Total Protein Fluid Total Protein Vancomycin Trough Rheumatoid Factor Complement C4 Miscellaneous Test Crossmatch 12/02/16 12/02/16 12/02/16 05:31 11:20 17:38 WBC RBC Hgb Hct MCV MCH MCHC RDW Plt Count Lymph % (Auto) [place] % (Auto) Lymph # [place] # Baso # Seg Neutrophils % Seg Neuts % (Manual) Lymphocytes % (Manual) Monocytes % (Manual) Eosinophils % (Manual) Basophils % (Manual) Nucleated RBC % Seg Neutrophils # Seg Neutrophils # Man Lymphocytes # (Manual) Monocytes # (Manual) Eosinophils # (Manual) Basophils # (Manual) PT INR Fibrinogen dRVVT Confirm Interp Factor V Activity POC ABG pH POC ABG pCO2 POC ABG pO2 ABG pO2 ABG HCO3 ABG Base Excess ABG Hemoglobin Oxyhemoglobin Sodium Potassium Chloride Carbon Dioxide BUN Creatinine Glucose POC Glucose 136 H 177 H 139 H Lactic Acid Calcium Ionized Calcium Phosphorus Magnesium Direct Bilirubin AST ALT Alkaline Phosphatase Lactate Dehydrogenase Troponin T C-Reactive Protein Total Protein Albumin Prealbumin Triglycerides Cholesterol LDL Cholesterol Direct HDL Cholesterol 25-OH Vitamin D Total PTH Intact Urine pH Urine WBC (Auto) Urine Creatinine Urine Total Protein Fluid Total Protein Vancomycin Trough Rheumatoid Factor Complement C4 Miscellaneous Test Crossmatch 12/02/16 12/03/16 12/03/16 23:43 04:00 04:00 WBC 20.4 H RBC 2.74 L Hgb 7.4 L Hct 23.6 L MCV MCH 27 L MCHC RDW 17.1 H Plt Count Lymph % (Auto) [place] % (Auto) Lymph # [place] # Baso # Seg Neutrophils % Seg Neuts % (Manual) 31.0 L Lymphocytes % (Manual) Monocytes % (Manual) Eosinophils % (Manual) Basophils % (Manual) Nucleated RBC % Seg Neutrophils # Seg Neutrophils # Man Lymphocytes # (Manual) Monocytes # (Manual) Eosinophils # (Manual) Basophils # (Manual) PT INR Fibrinogen dRVVT Confirm Interp Factor V Activity POC ABG pH POC ABG pCO2 POC ABG pO2 ABG pO2 ABG HCO3 ABG Base Excess ABG Hemoglobin Oxyhemoglobin Sodium Potassium Chloride Carbon Dioxide BUN 61 H Creatinine 1.6 H Glucose 119 H POC Glucose 158 H Lactic Acid Calcium Ionized Calcium Phosphorus Magnesium Direct Bilirubin AST ALT Alkaline Phosphatase Lactate Dehydrogenase Troponin T C-Reactive Protein Total Protein Albumin Prealbumin Triglycerides Cholesterol LDL Cholesterol Direct HDL Cholesterol 25-OH Vitamin D Total PTH Intact Urine pH Urine WBC (Auto) Urine Creatinine Urine Total Protein Fluid Total Protein Vancomycin Trough Rheumatoid Factor Complement C4 Miscellaneous Test Crossmatch 12/03/16 12/03/16 12/03/16 05:02 12:11 18:16 WBC RBC Hgb Hct MCV MCH MCHC RDW Plt Count Lymph % (Auto) [place] % (Auto) Lymph # [place] # Baso # Seg Neutrophils % Seg Neuts % (Manual) Lymphocytes % (Manual) Monocytes % (Manual) Eosinophils % (Manual) Basophils % (Manual) Nucleated RBC % Seg Neutrophils # Seg Neutrophils # Man Lymphocytes # (Manual) Monocytes # (Manual) Eosinophils # (Manual) Basophils # (Manual) PT INR Fibrinogen dRVVT Confirm Interp Factor V Activity POC ABG pH POC ABG pCO2 POC ABG pO2 ABG pO2 ABG HCO3 ABG Base Excess ABG Hemoglobin Oxyhemoglobin Sodium Potassium Chloride Carbon Dioxide BUN Creatinine Glucose POC Glucose 146 H 157 H 124 H Lactic Acid Calcium Ionized Calcium Phosphorus Magnesium Direct Bilirubin AST ALT Alkaline Phosphatase Lactate Dehydrogenase Troponin T C-Reactive Protein Total Protein Albumin Prealbumin Triglycerides Cholesterol LDL Cholesterol Direct HDL Cholesterol 25-OH Vitamin D Total PTH Intact Urine pH Urine WBC (Auto) Urine Creatinine Urine Total Protein Fluid Total Protein Vancomycin Trough Rheumatoid Factor Complement C4 Miscellaneous Test Crossmatch 12/03/16 12/04/16 12/04/16 23:41 04:00 04:45 WBC RBC Hgb Hct MCV MCH MCHC RDW Plt Count Lymph % (Auto) [place] % (Auto) Lymph # [place] # Baso # Seg Neutrophils % Seg Neuts % (Manual) Lymphocytes % (Manual) Monocytes % (Manual) Eosinophils % (Manual) Basophils % (Manual) Nucleated RBC % Seg Neutrophils # Seg Neutrophils # Man Lymphocytes # (Manual) Monocytes # (Manual) Eosinophils # (Manual) Basophils # (Manual) PT INR Fibrinogen dRVVT Confirm Interp Factor V Activity POC ABG pH POC ABG pCO2 POC ABG pO2 ABG pO2 ABG HCO3 ABG Base Excess ABG Hemoglobin Oxyhemoglobin Sodium Potassium Chloride Carbon Dioxide BUN 76 H Creatinine 1.6 H Glucose POC Glucose 130 H 136 H Lactic Acid Calcium Ionized Calcium Phosphorus Magnesium Direct Bilirubin AST ALT Alkaline Phosphatase 155 H Lactate Dehydrogenase Troponin T C-Reactive Protein Total Protein 5.5 L Albumin 1.5 L Prealbumin Triglycerides Cholesterol LDL Cholesterol Direct HDL Cholesterol 25-OH Vitamin D Total PTH Intact Urine pH Urine WBC (Auto) Urine Creatinine Urine Total Protein Fluid Total Protein Vancomycin Trough Rheumatoid Factor Complement C4 Miscellaneous Test Crossmatch 12/04/16 12/04/16 12/05/16 12:08 17:23 00:10 WBC RBC Hgb Hct MCV MCH MCHC RDW Plt Count Lymph % (Auto) [place] % (Auto) Lymph # [place] # Baso # Seg Neutrophils % Seg Neuts % (Manual) Lymphocytes % (Manual) Monocytes % (Manual) Eosinophils % (Manual) Basophils % (Manual) Nucleated RBC % Seg Neutrophils # Seg Neutrophils # Man Lymphocytes # (Manual) Monocytes # (Manual) Eosinophils # (Manual) Basophils # (Manual) PT INR Fibrinogen dRVVT Confirm Interp Factor V Activity POC ABG pH POC ABG pCO2 POC ABG pO2 ABG pO2 ABG HCO3 ABG Base Excess ABG Hemoglobin Oxyhemoglobin Sodium Potassium Chloride Carbon Dioxide BUN Creatinine Glucose POC Glucose 114 H 129 H 124 H Lactic Acid Calcium Ionized Calcium Phosphorus Magnesium Direct Bilirubin AST ALT Alkaline Phosphatase Lactate Dehydrogenase Troponin T C-Reactive Protein Total Protein Albumin Prealbumin Triglycerides Cholesterol LDL Cholesterol Direct HDL Cholesterol 25-OH Vitamin D Total PTH Intact Urine pH Urine WBC (Auto) Urine Creatinine Urine Total Protein Fluid Total Protein Vancomycin Trough Rheumatoid Factor Complement C4 Miscellaneous Test Crossmatch 12/05/16 12/05/16 12/05/16 05:00 05:00 05:18 WBC RBC Hgb Hct MCV MCH MCHC RDW Plt Count Lymph % (Auto) [place] % (Auto) Lymph # [place] # Baso # Seg Neutrophils % Seg Neuts % (Manual) Lymphocytes % (Manual) Monocytes % (Manual) Eosinophils % (Manual) Basophils % (Manual) Nucleated RBC % Seg Neutrophils # Seg Neutrophils # Man Lymphocytes # (Manual) Monocytes # (Manual) Eosinophils # (Manual) Basophils # (Manual) PT INR Fibrinogen dRVVT Confirm Interp Factor V Activity POC ABG pH POC ABG pCO2 POC ABG pO2 ABG pO2 ABG HCO3 ABG Base Excess ABG Hemoglobin Oxyhemoglobin Sodium Potassium Chloride Carbon Dioxide 21 L BUN 85 H Creatinine 1.9 H Glucose 131 H POC Glucose 154 H Lactic Acid Calcium Ionized Calcium Phosphorus Magnesium Direct Bilirubin AST ALT Alkaline Phosphatase Lactate Dehydrogenase Troponin T C-Reactive Protein 19.30 H Total Protein Albumin Prealbumin Triglycerides Cholesterol LDL Cholesterol Direct HDL Cholesterol 25-OH Vitamin D Total PTH Intact Urine pH Urine WBC (Auto) Urine Creatinine Urine Total Protein Fluid Total Protein Vancomycin Trough Rheumatoid Factor Complement C4 Miscellaneous Test Crossmatch 12/05/16 12/05/16 12/05/16 11:43 17:46 23:25 WBC RBC Hgb Hct MCV MCH MCHC RDW Plt Count Lymph % (Auto) [place] % (Auto) Lymph # [place] # Baso # Seg Neutrophils % Seg Neuts % (Manual) Lymphocytes % (Manual) Monocytes % (Manual) Eosinophils % (Manual) Basophils % (Manual) Nucleated RBC % Seg Neutrophils # Seg Neutrophils # Man Lymphocytes # (Manual) Monocytes # (Manual) Eosinophils # (Manual) Basophils # (Manual) PT INR Fibrinogen dRVVT Confirm Interp Factor V Activity POC ABG pH POC ABG pCO2 POC ABG pO2 ABG pO2 ABG HCO3 ABG Base Excess ABG Hemoglobin Oxyhemoglobin Sodium Potassium Chloride Carbon Dioxide BUN Creatinine Glucose POC Glucose 117 H 113 H 111 H Lactic Acid Calcium Ionized Calcium Phosphorus Magnesium Direct Bilirubin AST ALT Alkaline Phosphatase Lactate Dehydrogenase Troponin T C-Reactive Protein Total Protein Albumin Prealbumin Triglycerides Cholesterol LDL Cholesterol Direct HDL Cholesterol 25-OH Vitamin D Total PTH Intact Urine pH Urine WBC (Auto) Urine Creatinine Urine Total Protein Fluid Total Protein Vancomycin Trough Rheumatoid Factor Complement C4 Miscellaneous Test Crossmatch 12/05/16 12/06/16 12/06/16 Unknown 04:58 06:00 WBC RBC Hgb Hct MCV MCH MCHC RDW Plt Count Lymph % (Auto) [place] % (Auto) Lymph # [place] # Baso # Seg Neutrophils % Seg Neuts % (Manual) Lymphocytes % (Manual) Monocytes % (Manual) Eosinophils % (Manual) Basophils % (Manual) Nucleated RBC % Seg Neutrophils # Seg Neutrophils # Man Lymphocytes # (Manual) Monocytes # (Manual) Eosinophils # (Manual) Basophils # (Manual) PT INR Fibrinogen dRVVT Confirm Interp Factor V Activity POC ABG pH POC ABG pCO2 POC ABG pO2 ABG pO2 75.2 L ABG HCO3 ABG Base Excess -3.4 L ABG Hemoglobin 7.4 L Oxyhemoglobin 94.5 L Sodium Potassium Chloride Carbon Dioxide 20 L BUN 99 H Creatinine 2.1 H Glucose 126 H POC Glucose 145 H Lactic Acid Calcium Ionized Calcium Phosphorus 4.80 H Magnesium Direct Bilirubin AST ALT Alkaline Phosphatase Lactate Dehydrogenase Troponin T C-Reactive Protein Total Protein Albumin Prealbumin Triglycerides Cholesterol LDL Cholesterol Direct HDL Cholesterol 25-OH Vitamin D Total PTH Intact Urine pH Urine WBC (Auto) Urine Creatinine Urine Total Protein Fluid Total Protein Vancomycin Trough Rheumatoid Factor Complement C4 Miscellaneous Test Crossmatch 12/06/16 12/06/16 12/06/16 06:46 11:54 17:55 WBC RBC Hgb 8.3 L Hct 26.4 L MCV MCH MCHC RDW Plt Count Lymph % (Auto) [place] % (Auto) Lymph # [place] # Baso # Seg Neutrophils % Seg Neuts % (Manual) Lymphocytes % (Manual) Monocytes % (Manual) Eosinophils % (Manual) Basophils % (Manual) Nucleated RBC % Seg Neutrophils # Seg Neutrophils # Man Lymphocytes # (Manual) Monocytes # (Manual) Eosinophils # (Manual) Basophils # (Manual) PT INR Fibrinogen dRVVT Confirm Interp Factor V Activity POC ABG pH POC ABG pCO2 POC ABG pO2 ABG pO2 ABG HCO3 ABG Base Excess ABG Hemoglobin Oxyhemoglobin Sodium Potassium Chloride Carbon Dioxide BUN Creatinine Glucose POC Glucose 126 H 157 H Lactic Acid Calcium Ionized Calcium Phosphorus Magnesium Direct Bilirubin AST ALT Alkaline Phosphatase Lactate Dehydrogenase Troponin T C-Reactive Protein Total Protein Albumin Prealbumin Triglycerides Cholesterol LDL Cholesterol Direct HDL Cholesterol 25-OH Vitamin D Total PTH Intact Urine pH Urine WBC (Auto) Urine Creatinine Urine Total Protein Fluid Total Protein Vancomycin Trough Rheumatoid Factor Complement C4 Miscellaneous Test Crossmatch 12/06/16 12/07/16 12/07/16 23:59 05:34 06:30 WBC RBC Hgb Hct MCV MCH MCHC RDW Plt Count Lymph % (Auto) [place] % (Auto) Lymph # [place] # Baso # Seg Neutrophils % Seg Neuts % (Manual) Lymphocytes % (Manual) Monocytes % (Manual) Eosinophils % (Manual) Basophils % (Manual) Nucleated RBC % Seg Neutrophils # Seg Neutrophils # Man Lymphocytes # (Manual) Monocytes # (Manual) Eosinophils # (Manual) Basophils # (Manual) PT INR Fibrinogen dRVVT Confirm Interp Factor V Activity POC ABG pH POC ABG pCO2 POC ABG pO2 ABG pO2 ABG HCO3 ABG Base Excess ABG Hemoglobin Oxyhemoglobin Sodium Potassium Chloride Carbon Dioxide BUN 67 H Creatinine 1.4 H Glucose 126 H POC Glucose 129 H 129 H Lactic Acid Calcium Ionized Calcium Phosphorus Magnesium Direct Bilirubin AST ALT Alkaline Phosphatase Lactate Dehydrogenase Troponin T C-Reactive Protein Total Protein Albumin Prealbumin Triglycerides Cholesterol LDL Cholesterol Direct HDL Cholesterol 25-OH Vitamin D Total PTH Intact Urine pH Urine WBC (Auto) Urine Creatinine Urine Total Protein Fluid Total Protein Vancomycin Trough Rheumatoid Factor Complement C4 Miscellaneous Test Crossmatch 12/07/16 12/07/16 12/07/16 06:30 08:00 09:45 WBC 18.8 H RBC 2.52 L Hgb 6.9 L 6.8 L Hct 21.2 L 21.1 L MCV MCH 27 L MCHC RDW 18.0 H Plt Count Lymph % (Auto) [place] % (Auto) 9.9 H Lymph # [place] # 1.9 H Baso # Seg Neutrophils % 71.8 H Seg Neuts % (Manual) Lymphocytes % (Manual) Monocytes % (Manual) Eosinophils % (Manual) Basophils % (Manual) Nucleated RBC % Seg Neutrophils # 13.5 H Seg Neutrophils # Man Lymphocytes # (Manual) Monocytes # (Manual) Eosinophils # (Manual) Basophils # (Manual) PT INR Fibrinogen dRVVT Confirm Interp Factor V Activity POC ABG pH POC ABG pCO2 POC ABG pO2 ABG pO2 ABG HCO3 ABG Base Excess ABG Hemoglobin Oxyhemoglobin Sodium Potassium Chloride Carbon Dioxide BUN Creatinine Glucose POC Glucose Lactic Acid Calcium Ionized Calcium Phosphorus Magnesium Direct Bilirubin AST ALT Alkaline Phosphatase Lactate Dehydrogenase Troponin T C-Reactive Protein Total Protein Albumin Prealbumin Triglycerides Cholesterol LDL Cholesterol Direct HDL Cholesterol 25-OH Vitamin D Total PTH Intact Urine pH Urine WBC (Auto) Urine Creatinine Urine Total Protein Fluid Total Protein Vancomycin Trough Rheumatoid Factor Complement C4 Miscellaneous Test Crossmatch See Detail 12/07/16 12/07/16 12/07/16 11:44 18:19 23:59 WBC RBC Hgb Hct MCV MCH MCHC RDW Plt Count Lymph % (Auto) [place] % (Auto) Lymph # [place] # Baso # Seg Neutrophils % Seg Neuts % (Manual) Lymphocytes % (Manual) Monocytes % (Manual) Eosinophils % (Manual) Basophils % (Manual) Nucleated RBC % Seg Neutrophils # Seg Neutrophils # Man Lymphocytes # (Manual) Monocytes # (Manual) Eosinophils # (Manual) Basophils # (Manual) PT INR Fibrinogen dRVVT Confirm Interp Factor V Activity POC ABG pH POC ABG pCO2 POC ABG pO2 ABG pO2 ABG HCO3 ABG Base Excess ABG Hemoglobin Oxyhemoglobin Sodium Potassium Chloride Carbon Dioxide BUN Creatinine Glucose POC Glucose 137 H 138 H 133 H Lactic Acid Calcium Ionized Calcium Phosphorus Magnesium Direct Bilirubin AST ALT Alkaline Phosphatase Lactate Dehydrogenase Troponin T C-Reactive Protein Total Protein Albumin Prealbumin Triglycerides Cholesterol LDL Cholesterol Direct HDL Cholesterol 25-OH Vitamin D Total PTH Intact Urine pH Urine WBC (Auto) Urine Creatinine Urine Total Protein Fluid Total Protein Vancomycin Trough Rheumatoid Factor Complement C4 Miscellaneous Test Crossmatch 12/08/16 12/08/16 12/08/16 05:25 05:30 05:30 WBC 23.8 H RBC 2.88 L Hgb 8.1 L Hct 24.3 L MCV MCH MCHC RDW 16.7 H Plt Count Lymph % (Auto) [place] % (Auto) Lymph # [place] # Baso # Seg Neutrophils % Seg Neuts % (Manual) 76.0 H Lymphocytes % (Manual) 9.0 L Monocytes % (Manual) 9.0 H Eosinophils % (Manual) Basophils % (Manual) Nucleated RBC % Seg Neutrophils # Seg Neutrophils # Man 18.1 H Lymphocytes # (Manual) Monocytes # (Manual) 2.1 H Eosinophils # (Manual) Basophils # (Manual) PT INR Fibrinogen dRVVT Confirm Interp Factor V Activity POC ABG pH POC ABG pCO2 POC ABG pO2 ABG pO2 ABG HCO3 ABG Base Excess ABG Hemoglobin Oxyhemoglobin Sodium Potassium Chloride Carbon Dioxide 21 L BUN 76 H Creatinine 1.6 H Glucose 133 H POC Glucose 177 H Lactic Acid Calcium Ionized Calcium Phosphorus Magnesium Direct Bilirubin AST ALT Alkaline Phosphatase Lactate Dehydrogenase Troponin T C-Reactive Protein Total Protein Albumin Prealbumin Triglycerides Cholesterol LDL Cholesterol Direct HDL Cholesterol 25-OH Vitamin D Total PTH Intact Urine pH Urine WBC (Auto) Urine Creatinine Urine Total Protein Fluid Total Protein Vancomycin Trough Rheumatoid Factor Complement C4 Miscellaneous Test Crossmatch 12/08/16 12/08/16 12/09/16 11:45 18:00 00:00 WBC RBC Hgb Hct MCV MCH MCHC RDW Plt Count Lymph % (Auto) [place] % (Auto) Lymph # [place] # Baso # Seg Neutrophils % Seg Neuts % (Manual) Lymphocytes % (Manual) Monocytes % (Manual) Eosinophils % (Manual) Basophils % (Manual) Nucleated RBC % Seg Neutrophils # Seg Neutrophils # Man Lymphocytes # (Manual) Monocytes # (Manual) Eosinophils # (Manual) Basophils # (Manual) PT INR Fibrinogen dRVVT Confirm Interp Factor V Activity POC ABG pH POC ABG pCO2 POC ABG pO2 ABG pO2 ABG HCO3 ABG Base Excess ABG Hemoglobin Oxyhemoglobin Sodium Potassium Chloride Carbon Dioxide BUN Creatinine Glucose POC Glucose 163 H 123 H 137 H Lactic Acid Calcium Ionized Calcium Phosphorus Magnesium Direct Bilirubin AST ALT Alkaline Phosphatase Lactate Dehydrogenase Troponin T C-Reactive Protein Total Protein Albumin Prealbumin Triglycerides Cholesterol LDL Cholesterol Direct HDL Cholesterol 25-OH Vitamin D Total PTH Intact Urine pH Urine WBC (Auto) Urine Creatinine Urine Total Protein Fluid Total Protein Vancomycin Trough Rheumatoid Factor Complement C4 Miscellaneous Test Crossmatch 12/09/16 12/09/16 12/09/16 05:34 06:00 06:00 WBC 15.5 H RBC 2.87 L Hgb 8.0 L Hct 24.2 L MCV MCH MCHC RDW 17.2 H Plt Count Lymph % (Auto) [place] % (Auto) 11.6 H Lymph # [place] # 1.8 H Baso # Seg Neutrophils % 70.8 H Seg Neuts % (Manual) Lymphocytes % (Manual) Monocytes % (Manual) Eosinophils % (Manual) Basophils % (Manual) Nucleated RBC % Seg Neutrophils # 11.0 H Seg Neutrophils # Man Lymphocytes # (Manual) Monocytes # (Manual) Eosinophils # (Manual) Basophils # (Manual) PT INR Fibrinogen dRVVT Confirm Interp Factor V Activity POC ABG pH POC ABG pCO2 POC ABG pO2 ABG pO2 ABG HCO3 ABG Base Excess ABG Hemoglobin Oxyhemoglobin Sodium Potassium Chloride Carbon Dioxide BUN 51 H Creatinine Glucose 117 H POC Glucose 136 H Lactic Acid Calcium Ionized Calcium Phosphorus Magnesium Direct Bilirubin AST ALT Alkaline Phosphatase Lactate Dehydrogenase Troponin T C-Reactive Protein Total Protein Albumin Prealbumin Triglycerides Cholesterol LDL Cholesterol Direct HDL Cholesterol 25-OH Vitamin D Total PTH Intact Urine pH Urine WBC (Auto) Urine Creatinine Urine Total Protein Fluid Total Protein Vancomycin Trough Rheumatoid Factor Complement C4 Miscellaneous Test Crossmatch 12/09/16 12/09/16 12/09/16 12:29 17:52 23:10 WBC RBC Hgb Hct MCV MCH MCHC RDW Plt Count Lymph % (Auto) [place] % (Auto) Lymph # [place] # Baso # Seg Neutrophils % Seg Neuts % (Manual) Lymphocytes % (Manual) Monocytes % (Manual) Eosinophils % (Manual) Basophils % (Manual) Nucleated RBC % Seg Neutrophils # Seg Neutrophils # Man Lymphocytes # (Manual) Monocytes # (Manual) Eosinophils # (Manual) Basophils # (Manual) PT INR Fibrinogen dRVVT Confirm Interp Factor V Activity POC ABG pH POC ABG pCO2 POC ABG pO2 ABG pO2 ABG HCO3 ABG Base Excess ABG Hemoglobin Oxyhemoglobin Sodium Potassium Chloride Carbon Dioxide BUN Creatinine Glucose POC Glucose 139 H 140 H 129 H Lactic Acid Calcium Ionized Calcium Phosphorus Magnesium Direct Bilirubin AST ALT Alkaline Phosphatase Lactate Dehydrogenase Troponin T C-Reactive Protein Total Protein Albumin Prealbumin Triglycerides Cholesterol LDL Cholesterol Direct HDL Cholesterol 25-OH Vitamin D Total PTH Intact Urine pH Urine WBC (Auto) Urine Creatinine Urine Total Protein Fluid Total Protein Vancomycin Trough Rheumatoid Factor Complement C4 Miscellaneous Test Crossmatch 12/10/16 12/10/16 12/10/16 05:00 05:00 06:54 WBC 15.7 H RBC 2.87 L Hgb 8.2 L Hct 24.4 L MCV MCH MCHC RDW 17.2 H Plt Count Lymph % (Auto) [place] % (Auto) 8.3 H Lymph # [place] # 1.3 H Baso # Seg Neutrophils % 72.8 H Seg Neuts % (Manual) Lymphocytes % (Manual) Monocytes % (Manual) Eosinophils % (Manual) Basophils % (Manual) Nucleated RBC % Seg Neutrophils # 11.4 H Seg Neutrophils # Man Lymphocytes # (Manual) Monocytes # (Manual) Eosinophils # (Manual) Basophils # (Manual) PT INR Fibrinogen dRVVT Confirm Interp Factor V Activity POC ABG pH POC ABG pCO2 POC ABG pO2 ABG pO2 ABG HCO3 ABG Base Excess ABG Hemoglobin Oxyhemoglobin Sodium Potassium Chloride Carbon Dioxide BUN 64 H Creatinine 1.4 H Glucose 134 H POC Glucose 154 H Lactic Acid Calcium Ionized Calcium Phosphorus Magnesium Direct Bilirubin AST ALT Alkaline Phosphatase Lactate Dehydrogenase Troponin T C-Reactive Protein Total Protein Albumin Prealbumin Triglycerides Cholesterol LDL Cholesterol Direct HDL Cholesterol 25-OH Vitamin D Total PTH Intact Urine pH Urine WBC (Auto) Urine Creatinine Urine Total Protein Fluid Total Protein Vancomycin Trough Rheumatoid Factor Complement C4 Miscellaneous Test Crossmatch 12/10/16 12/10/16 12/10/16 11:58 17:29 23:52 WBC RBC Hgb Hct MCV MCH MCHC RDW Plt Count Lymph % (Auto) [place] % (Auto) Lymph # [place] # Baso # Seg Neutrophils % Seg Neuts % (Manual) Lymphocytes % (Manual) Monocytes % (Manual) Eosinophils % (Manual) Basophils % (Manual) Nucleated RBC % Seg Neutrophils # Seg Neutrophils # Man Lymphocytes # (Manual) Monocytes # (Manual) Eosinophils # (Manual) Basophils # (Manual) PT INR Fibrinogen dRVVT Confirm Interp Factor V Activity POC ABG pH POC ABG pCO2 POC ABG pO2 ABG pO2 ABG HCO3 ABG Base Excess ABG Hemoglobin Oxyhemoglobin Sodium Potassium Chloride Carbon Dioxide BUN Creatinine Glucose POC Glucose 144 H 163 H 125 H Lactic Acid Calcium Ionized Calcium Phosphorus Magnesium Direct Bilirubin AST ALT Alkaline Phosphatase Lactate Dehydrogenase Troponin T C-Reactive Protein Total Protein Albumin Prealbumin Triglycerides Cholesterol LDL Cholesterol Direct HDL Cholesterol 25-OH Vitamin D Total PTH Intact Urine pH Urine WBC (Auto) Urine Creatinine Urine Total Protein Fluid Total Protein Vancomycin Trough Rheumatoid Factor Complement C4 Miscellaneous Test Crossmatch 12/11/16 12/11/16 12/11/16 05:38 06:30 06:30 WBC 14.4 H RBC 2.76 L Hgb 7.7 L Hct 23.4 L MCV MCH MCHC RDW 17.2 H Plt Count Lymph % (Auto) [place] % (Auto) 8.8 H Lymph # [place] # 1.3 H Baso # Seg Neutrophils % 72.5 H Seg Neuts % (Manual) Lymphocytes % (Manual) Monocytes % (Manual) Eosinophils % (Manual) Basophils % (Manual) Nucleated RBC % Seg Neutrophils # 10.5 H Seg Neutrophils # Man Lymphocytes # (Manual) Monocytes # (Manual) Eosinophils # (Manual) Basophils # (Manual) PT INR Fibrinogen dRVVT Confirm Interp Factor V Activity POC ABG pH POC ABG pCO2 POC ABG pO2 ABG pO2 ABG HCO3 ABG Base Excess ABG Hemoglobin Oxyhemoglobin Sodium Potassium Chloride Carbon Dioxide BUN 43 H Creatinine Glucose 124 H POC Glucose 141 H Lactic Acid Calcium 8.3 L Ionized Calcium Phosphorus Magnesium 1.60 L Direct Bilirubin AST ALT Alkaline Phosphatase Lactate Dehydrogenase Troponin T C-Reactive Protein Total Protein Albumin Prealbumin Triglycerides Cholesterol LDL Cholesterol Direct HDL Cholesterol 25-OH Vitamin D Total PTH Intact Urine pH Urine WBC (Auto) Urine Creatinine Urine Total Protein Fluid Total Protein Vancomycin Trough Rheumatoid Factor Complement C4 Miscellaneous Test Crossmatch 12/11/16 12/11/16 12/11/16 11:15 17:59 23:48 WBC RBC Hgb Hct MCV MCH MCHC RDW Plt Count Lymph % (Auto) [place] % (Auto) Lymph # [place] # Baso # Seg Neutrophils % Seg Neuts % (Manual) Lymphocytes % (Manual) Monocytes % (Manual) Eosinophils % (Manual) Basophils % (Manual) Nucleated RBC % Seg Neutrophils # Seg Neutrophils # Man Lymphocytes # (Manual) Monocytes # (Manual) Eosinophils # (Manual) Basophils # (Manual) PT INR Fibrinogen dRVVT Confirm Interp Factor V Activity POC ABG pH POC ABG pCO2 POC ABG pO2 ABG pO2 ABG HCO3 ABG Base Excess ABG Hemoglobin Oxyhemoglobin Sodium Potassium Chloride Carbon Dioxide BUN Creatinine Glucose POC Glucose 188 H 106 H 119 H Lactic Acid Calcium Ionized Calcium Phosphorus Magnesium Direct Bilirubin AST ALT Alkaline Phosphatase Lactate Dehydrogenase Troponin T C-Reactive Protein Total Protein Albumin Prealbumin Triglycerides Cholesterol LDL Cholesterol Direct HDL Cholesterol 25-OH Vitamin D Total PTH Intact Urine pH Urine WBC (Auto) Urine Creatinine Urine Total Protein Fluid Total Protein Vancomycin Trough Rheumatoid Factor Complement C4 Miscellaneous Test Crossmatch 12/12/16 12/12/16 12/12/16 05:00 06:01 12:20 WBC 16.7 H RBC 2.87 L Hgb 8.0 L Hct 24.2 L MCV MCH MCHC RDW 17.6 H Plt Count Lymph % (Auto) [place] % (Auto) Lymph # [place] # 1.2 H Baso # Seg Neutrophils % 75.3 H Seg Neuts % (Manual) Lymphocytes % (Manual) Monocytes % (Manual) Eosinophils % (Manual) Basophils % (Manual) Nucleated RBC % Seg Neutrophils # 12.6 H Seg Neutrophils # Man Lymphocytes # (Manual) Monocytes # (Manual) Eosinophils # (Manual) Basophils # (Manual) PT INR Fibrinogen dRVVT Confirm Interp Factor V Activity POC ABG pH POC ABG pCO2 POC ABG pO2 ABG pO2 ABG HCO3 ABG Base Excess ABG Hemoglobin Oxyhemoglobin Sodium Potassium Chloride Carbon Dioxide BUN Creatinine Glucose POC Glucose 134 H 149 H Lactic Acid Calcium Ionized Calcium Phosphorus Magnesium Direct Bilirubin AST ALT Alkaline Phosphatase Lactate Dehydrogenase Troponin T C-Reactive Protein Total Protein Albumin Prealbumin Triglycerides Cholesterol LDL Cholesterol Direct HDL Cholesterol 25-OH Vitamin D Total PTH Intact Urine pH Urine WBC (Auto) Urine Creatinine Urine Total Protein Fluid Total Protein Vancomycin Trough Rheumatoid Factor Complement C4 Miscellaneous Test Crossmatch 12/12/16 12/12/16 12/12/16 17:38 23:01 Unknown WBC RBC Hgb Hct MCV MCH MCHC RDW Plt Count Lymph % (Auto) [place] % (Auto) Lymph # [place] # Baso # Seg Neutrophils % Seg Neuts % (Manual) Lymphocytes % (Manual) Monocytes % (Manual) Eosinophils % (Manual) Basophils % (Manual) Nucleated RBC % Seg Neutrophils # Seg Neutrophils # Man Lymphocytes # (Manual) Monocytes # (Manual) Eosinophils # (Manual) Basophils # (Manual) PT INR Fibrinogen dRVVT Confirm Interp Factor V Activity POC ABG pH POC ABG pCO2 POC ABG pO2 ABG pO2 ABG HCO3 ABG Base Excess ABG Hemoglobin Oxyhemoglobin Sodium Potassium Chloride Carbon Dioxide BUN 60 H Creatinine 1.3 H Glucose 126 H POC Glucose 127 H 144 H Lactic Acid Calcium Ionized Calcium Phosphorus Magnesium Direct Bilirubin AST ALT Alkaline Phosphatase Lactate Dehydrogenase Troponin T C-Reactive Protein Total Protein Albumin Prealbumin Triglycerides Cholesterol LDL Cholesterol Direct HDL Cholesterol 25-OH Vitamin D Total PTH Intact Urine pH Urine WBC (Auto) Urine Creatinine Urine Total Protein Fluid Total Protein Vancomycin Trough Rheumatoid Factor Complement C4 Miscellaneous Test Crossmatch 12/13/16 12/13/16 12/13/16 04:00 04:00 05:19 WBC 18.7 H RBC 2.89 L Hgb 8.3 L Hct 24.6 L MCV MCH MCHC RDW 17.5 H Plt Count Lymph % (Auto) [place] % (Auto) Lymph # [place] # 1.3 H Baso # Seg Neutrophils % 71.5 H Seg Neuts % (Manual) Lymphocytes % (Manual) Monocytes % (Manual) Eosinophils % (Manual) Basophils % (Manual) Nucleated RBC % Seg Neutrophils # 13.4 H Seg Neutrophils # Man Lymphocytes # (Manual) Monocytes # (Manual) Eosinophils # (Manual) Basophils # (Manual) PT INR Fibrinogen dRVVT Confirm Interp Factor V Activity POC ABG pH POC ABG pCO2 POC ABG pO2 ABG pO2 ABG HCO3 ABG Base Excess ABG Hemoglobin Oxyhemoglobin Sodium Potassium Chloride Carbon Dioxide BUN 73 H Creatinine 1.5 H Glucose 141 H POC Glucose 171 H Lactic Acid Calcium Ionized Calcium Phosphorus Magnesium Direct Bilirubin AST ALT Alkaline Phosphatase Lactate Dehydrogenase Troponin T C-Reactive Protein Total Protein Albumin Prealbumin Triglycerides Cholesterol LDL Cholesterol Direct HDL Cholesterol 25-OH Vitamin D Total PTH Intact Urine pH Urine WBC (Auto) Urine Creatinine Urine Total Protein Fluid Total Protein Vancomycin Trough Rheumatoid Factor Complement C4 Miscellaneous Test Crossmatch 12/13/16 12/13/16 12/14/16 12:28 16:48 00:01 WBC RBC Hgb Hct MCV MCH MCHC RDW Plt Count Lymph % (Auto) [place] % (Auto) Lymph # [place] # Baso # Seg Neutrophils % Seg Neuts % (Manual) Lymphocytes % (Manual) Monocytes % (Manual) Eosinophils % (Manual) Basophils % (Manual) Nucleated RBC % Seg Neutrophils # Seg Neutrophils # Man Lymphocytes # (Manual) Monocytes # (Manual) Eosinophils # (Manual) Basophils # (Manual) PT INR Fibrinogen dRVVT Confirm Interp Factor V Activity POC ABG pH POC ABG pCO2 POC ABG pO2 ABG pO2 ABG HCO3 ABG Base Excess ABG Hemoglobin Oxyhemoglobin Sodium Potassium Chloride Carbon Dioxide BUN Creatinine Glucose POC Glucose 206 H 173 H 139 H Lactic Acid Calcium Ionized Calcium Phosphorus Magnesium Direct Bilirubin AST ALT Alkaline Phosphatase Lactate Dehydrogenase Troponin T C-Reactive Protein Total Protein Albumin Prealbumin Triglycerides Cholesterol LDL Cholesterol Direct HDL Cholesterol 25-OH Vitamin D Total PTH Intact Urine pH Urine WBC (Auto) Urine Creatinine Urine Total Protein Fluid Total Protein Vancomycin Trough Rheumatoid Factor Complement C4 Miscellaneous Test Crossmatch 12/14/16 12/14/16 12/14/16 05:16 06:10 11:17 WBC RBC Hgb Hct MCV MCH MCHC RDW Plt Count Lymph % (Auto) [place] % (Auto) Lymph # [place] # Baso # Seg Neutrophils % Seg Neuts % (Manual) Lymphocytes % (Manual) Monocytes % (Manual) Eosinophils % (Manual) Basophils % (Manual) Nucleated RBC % Seg Neutrophils # Seg Neutrophils # Man Lymphocytes # (Manual) Monocytes # (Manual) Eosinophils # (Manual) Basophils # (Manual) PT INR Fibrinogen dRVVT Confirm Interp Factor V Activity POC ABG pH POC ABG pCO2 POC ABG pO2 ABG pO2 ABG HCO3 ABG Base Excess ABG Hemoglobin Oxyhemoglobin Sodium Potassium Chloride Carbon Dioxide BUN 57 H Creatinine 1.4 H Glucose 135 H POC Glucose 158 H 137 H Lactic Acid Calcium Ionized Calcium Phosphorus Magnesium Direct Bilirubin AST ALT Alkaline Phosphatase Lactate Dehydrogenase Troponin T C-Reactive Protein Total Protein Albumin Prealbumin Triglycerides Cholesterol LDL Cholesterol Direct HDL Cholesterol 25-OH Vitamin D Total PTH Intact Urine pH Urine WBC (Auto) Urine Creatinine Urine Total Protein Fluid Total Protein Vancomycin Trough Rheumatoid Factor Complement C4 Miscellaneous Test Crossmatch 12/14/16 12/14/16 12/15/16 17:52 23:27 04:00 WBC RBC Hgb Hct MCV MCH MCHC RDW Plt Count Lymph % (Auto) [place] % (Auto) Lymph # [place] # Baso # Seg Neutrophils % Seg Neuts % (Manual) Lymphocytes % (Manual) Monocytes % (Manual) Eosinophils % (Manual) Basophils % (Manual) Nucleated RBC % Seg Neutrophils # Seg Neutrophils # Man Lymphocytes # (Manual) Monocytes # (Manual) Eosinophils # (Manual) Basophils # (Manual) PT INR Fibrinogen dRVVT Confirm Interp Factor V Activity POC ABG pH POC ABG pCO2 POC ABG pO2 ABG pO2 ABG HCO3 ABG Base Excess ABG Hemoglobin Oxyhemoglobin Sodium Potassium Chloride 97.9 L Carbon Dioxide BUN 75 H Creatinine 1.6 H Glucose 122 H POC Glucose 149 H 163 H Lactic Acid Calcium Ionized Calcium Phosphorus 5.20 H Magnesium Direct Bilirubin AST ALT Alkaline Phosphatase Lactate Dehydrogenase Troponin T C-Reactive Protein Total Protein Albumin Prealbumin Triglycerides Cholesterol LDL Cholesterol Direct HDL Cholesterol 25-OH Vitamin D Total PTH Intact Urine pH Urine WBC (Auto) Urine Creatinine Urine Total Protein Fluid Total Protein Vancomycin Trough Rheumatoid Factor Complement C4 Miscellaneous Test Crossmatch 12/15/16 12/15/16 12/15/16 05:50 11:24 17:01 WBC RBC Hgb Hct MCV MCH MCHC RDW Plt Count Lymph % (Auto) [place] % (Auto) Lymph # [place] # Baso # Seg Neutrophils % Seg Neuts % (Manual) Lymphocytes % (Manual) Monocytes % (Manual) Eosinophils % (Manual) Basophils % (Manual) Nucleated RBC % Seg Neutrophils # Seg Neutrophils # Man Lymphocytes # (Manual) Monocytes # (Manual) Eosinophils # (Manual) Basophils # (Manual) PT INR Fibrinogen dRVVT Confirm Interp Factor V Activity POC ABG pH POC ABG pCO2 POC ABG pO2 ABG pO2 ABG HCO3 ABG Base Excess ABG Hemoglobin Oxyhemoglobin Sodium Potassium Chloride Carbon Dioxide BUN Creatinine Glucose POC Glucose 150 H 146 H 167 H Lactic Acid Calcium Ionized Calcium Phosphorus Magnesium Direct Bilirubin AST ALT Alkaline Phosphatase Lactate Dehydrogenase Troponin T C-Reactive Protein Total Protein Albumin Prealbumin Triglycerides Cholesterol LDL Cholesterol Direct HDL Cholesterol 25-OH Vitamin D Total PTH Intact Urine pH Urine WBC (Auto) Urine Creatinine Urine Total Protein Fluid Total Protein Vancomycin Trough Rheumatoid Factor Complement C4 Miscellaneous Test Crossmatch 12/15/16 12/16/16 12/16/16 23:34 05:25 11:24 WBC RBC Hgb Hct MCV MCH MCHC RDW Plt Count Lymph % (Auto) [place] % (Auto) Lymph # [place] # Baso # Seg Neutrophils % Seg Neuts % (Manual) Lymphocytes % (Manual) Monocytes % (Manual) Eosinophils % (Manual) Basophils % (Manual) Nucleated RBC % Seg Neutrophils # Seg Neutrophils # Man Lymphocytes # (Manual) Monocytes # (Manual) Eosinophils # (Manual) Basophils # (Manual) PT INR Fibrinogen dRVVT Confirm Interp Factor V Activity POC ABG pH POC ABG pCO2 POC ABG pO2 ABG pO2 ABG HCO3 ABG Base Excess ABG Hemoglobin Oxyhemoglobin Sodium Potassium Chloride Carbon Dioxide BUN Creatinine Glucose POC Glucose 127 H 139 H 165 H Lactic Acid Calcium Ionized Calcium Phosphorus Magnesium Direct Bilirubin AST ALT Alkaline Phosphatase Lactate Dehydrogenase Troponin T C-Reactive Protein Total Protein Albumin Prealbumin Triglycerides Cholesterol LDL Cholesterol Direct HDL Cholesterol 25-OH Vitamin D Total PTH Intact Urine pH Urine WBC (Auto) Urine Creatinine Urine Total Protein Fluid Total Protein Vancomycin Trough Rheumatoid Factor Complement C4 Miscellaneous Test Crossmatch 12/16/16 12/16/16 12/16/16 15:30 16:25 17:31 WBC 17.8 H RBC 2.38 L Hgb 6.4 L Hct 20.3 L MCV MCH 27 L MCHC RDW 17.4 H Plt Count Lymph % (Auto) [place] % (Auto) Lymph # [place] # Baso # Seg Neutrophils % Seg Neuts % (Manual) Lymphocytes % (Manual) Monocytes % (Manual) 10.0 H Eosinophils % (Manual) Basophils % (Manual) Nucleated RBC % Seg Neutrophils # Seg Neutrophils # Man 8.5 H Lymphocytes # (Manual) Monocytes # (Manual) 1.8 H Eosinophils # (Manual) Basophils # (Manual) PT INR Fibrinogen dRVVT Confirm Interp Factor V Activity POC ABG pH POC ABG pCO2 POC ABG pO2 ABG pO2 ABG HCO3 ABG Base Excess ABG Hemoglobin Oxyhemoglobin Sodium Potassium Chloride Carbon Dioxide BUN Creatinine Glucose POC Glucose 176 H Lactic Acid Calcium Ionized Calcium Phosphorus Magnesium Direct Bilirubin AST ALT Alkaline Phosphatase Lactate Dehydrogenase Troponin T C-Reactive Protein Total Protein Albumin Prealbumin Triglycerides Cholesterol LDL Cholesterol Direct HDL Cholesterol 25-OH Vitamin D Total PTH Intact Urine pH Urine WBC (Auto) Urine Creatinine Urine Total Protein Fluid Total Protein Vancomycin Trough Rheumatoid Factor Complement C4 Miscellaneous Test Crossmatch See Detail 12/17/16 12/17/16 12/17/16 00:14 04:00 05:00 WBC 20.0 H RBC 2.99 L Hgb 8.5 L Hct 25.7 L MCV MCH MCHC RDW 17.2 H Plt Count Lymph % (Auto) [place] % (Auto) Lymph # [place] # Baso # Seg Neutrophils % Seg Neuts % (Manual) Lymphocytes % (Manual) Monocytes % (Manual) Eosinophils % (Manual) Basophils % (Manual) Nucleated RBC % Seg Neutrophils # Seg Neutrophils # Man Lymphocytes # (Manual) Monocytes # (Manual) Eosinophils # (Manual) Basophils # (Manual) PT INR Fibrinogen dRVVT Confirm Interp Factor V Activity POC ABG pH POC ABG pCO2 POC ABG pO2 ABG pO2 ABG HCO3 ABG Base Excess ABG Hemoglobin Oxyhemoglobin Sodium Potassium Chloride 97.7 L Carbon Dioxide BUN 73 H Creatinine 1.7 H Glucose 136 H POC Glucose 148 H Lactic Acid Calcium Ionized Calcium Phosphorus 2.20 L Magnesium 2.70 H Direct Bilirubin AST ALT Alkaline Phosphatase Lactate Dehydrogenase Troponin T C-Reactive Protein Total Protein Albumin Prealbumin Triglycerides Cholesterol LDL Cholesterol Direct HDL Cholesterol 25-OH Vitamin D Total PTH Intact Urine pH Urine WBC (Auto) Urine Creatinine Urine Total Protein Fluid Total Protein Vancomycin Trough Rheumatoid Factor Complement C4 Miscellaneous Test Crossmatch 12/17/16 12/17/16 12/17/16 05:39 12:50 16:32 WBC RBC Hgb Hct MCV MCH MCHC RDW Plt Count Lymph % (Auto) [place] % (Auto) Lymph # [place] # Baso # Seg Neutrophils % Seg Neuts % (Manual) Lymphocytes % (Manual) Monocytes % (Manual) Eosinophils % (Manual) Basophils % (Manual) Nucleated RBC % Seg Neutrophils # Seg Neutrophils # Man Lymphocytes # (Manual) Monocytes # (Manual) Eosinophils # (Manual) Basophils # (Manual) PT INR Fibrinogen dRVVT Confirm Interp Factor V Activity POC ABG pH POC ABG pCO2 POC ABG pO2 ABG pO2 ABG HCO3 ABG Base Excess ABG Hemoglobin Oxyhemoglobin Sodium Potassium Chloride Carbon Dioxide BUN Creatinine Glucose POC Glucose 162 H 146 H 169 H Lactic Acid Calcium Ionized Calcium Phosphorus Magnesium Direct Bilirubin AST ALT Alkaline Phosphatase Lactate Dehydrogenase Troponin T C-Reactive Protein Total Protein Albumin Prealbumin Triglycerides Cholesterol LDL Cholesterol Direct HDL Cholesterol 25-OH Vitamin D Total PTH Intact Urine pH Urine WBC (Auto) Urine Creatinine Urine Total Protein Fluid Total Protein Vancomycin Trough Rheumatoid Factor Complement C4 Miscellaneous Test Crossmatch 12/17/16 12/18/16 12/18/16 23:57 05:00 05:32 WBC RBC Hgb Hct MCV MCH MCHC RDW Plt Count Lymph % (Auto) [place] % (Auto) Lymph # [place] # Baso # Seg Neutrophils % Seg Neuts % (Manual) Lymphocytes % (Manual) Monocytes % (Manual) Eosinophils % (Manual) Basophils % (Manual) Nucleated RBC % Seg Neutrophils # Seg Neutrophils # Man Lymphocytes # (Manual) Monocytes # (Manual) Eosinophils # (Manual) Basophils # (Manual) PT INR Fibrinogen dRVVT Confirm Interp Factor V Activity POC ABG pH POC ABG pCO2 POC ABG pO2 ABG pO2 ABG HCO3 ABG Base Excess ABG Hemoglobin Oxyhemoglobin Sodium Potassium Chloride 97.0 L Carbon Dioxide BUN 63 H Creatinine 1.4 H Glucose 174 H POC Glucose 145 H 201 H Lactic Acid Calcium Ionized Calcium Phosphorus 1.70 L D Magnesium Direct Bilirubin AST ALT Alkaline Phosphatase 257 H Lactate Dehydrogenase Troponin T C-Reactive Protein Total Protein 5.9 L Albumin 1.8 L Prealbumin Triglycerides Cholesterol LDL Cholesterol Direct HDL Cholesterol 25-OH Vitamin D Total PTH Intact Urine pH Urine WBC (Auto) Urine Creatinine Urine Total Protein Fluid Total Protein Vancomycin Trough Rheumatoid Factor Complement C4 Miscellaneous Test Crossmatch 12/18/16 12/18/16 12/18/16 11:43 16:52 23:52 WBC RBC Hgb Hct MCV MCH MCHC RDW Plt Count Lymph % (Auto) [place] % (Auto) Lymph # [place] # Baso # Seg Neutrophils % Seg Neuts % (Manual) Lymphocytes % (Manual) Monocytes % (Manual) Eosinophils % (Manual) Basophils % (Manual) Nucleated RBC % Seg Neutrophils # Seg Neutrophils # Man Lymphocytes # (Manual) Monocytes # (Manual) Eosinophils # (Manual) Basophils # (Manual) PT INR Fibrinogen dRVVT Confirm Interp Factor V Activity POC ABG pH POC ABG pCO2 POC ABG pO2 ABG pO2 ABG HCO3 ABG Base Excess ABG Hemoglobin Oxyhemoglobin Sodium Potassium Chloride Carbon Dioxide BUN Creatinine Glucose POC Glucose 177 H 110 H 162 H Lactic Acid Calcium Ionized Calcium Phosphorus Magnesium Direct Bilirubin AST ALT Alkaline Phosphatase Lactate Dehydrogenase Troponin T C-Reactive Protein Total Protein Albumin Prealbumin Triglycerides Cholesterol LDL Cholesterol Direct HDL Cholesterol 25-OH Vitamin D Total PTH Intact Urine pH Urine WBC (Auto) Urine Creatinine Urine Total Protein Fluid Total Protein Vancomycin Trough Rheumatoid Factor Complement C4 Miscellaneous Test Crossmatch 12/19/16 12/19/16 12/19/16 05:02 05:24 09:30 WBC 20.1 H RBC 2.73 L Hgb 7.6 L Hct 23.6 L MCV MCH MCHC RDW 17.6 H Plt Count Lymph % (Auto) [place] % (Auto) Lymph # [place] # Baso # Seg Neutrophils % Seg Neuts % (Manual) Lymphocytes % (Manual) 13.0 L Monocytes % (Manual) Eosinophils % (Manual) Basophils % (Manual) Nucleated RBC % 1.0 H Seg Neutrophils # Seg Neutrophils # Man 12.9 H Lymphocytes # (Manual) Monocytes # (Manual) 1.4 H Eosinophils # (Manual) Basophils # (Manual) 0.2 H PT INR Fibrinogen dRVVT Confirm Interp Factor V Activity POC ABG pH POC ABG pCO2 POC ABG pO2 ABG pO2 ABG HCO3 ABG Base Excess ABG Hemoglobin Oxyhemoglobin Sodium Potassium Chloride 97.8 L Carbon Dioxide BUN 84 H Creatinine 1.6 H Glucose 133 H POC Glucose 134 H Lactic Acid Calcium Ionized Calcium Phosphorus Magnesium Direct Bilirubin AST ALT Alkaline Phosphatase Lactate Dehydrogenase Troponin T C-Reactive Protein Total Protein Albumin Prealbumin Triglycerides Cholesterol LDL Cholesterol Direct HDL Cholesterol 25-OH Vitamin D Total PTH Intact Urine pH Urine WBC (Auto) Urine Creatinine Urine Total Protein Fluid Total Protein Vancomycin Trough Rheumatoid Factor Complement C4 Miscellaneous Test Crossmatch 12/19/16 12/19/16 12/19/16 09:36 11:12 18:29 WBC RBC Hgb Hct MCV MCH MCHC RDW Plt Count Lymph % (Auto) [place] % (Auto) Lymph # [place] # Baso # Seg Neutrophils % Seg Neuts % (Manual) Lymphocytes % (Manual) Monocytes % (Manual) Eosinophils % (Manual) Basophils % (Manual) Nucleated RBC % Seg Neutrophils # Seg Neutrophils # Man Lymphocytes # (Manual) Monocytes # (Manual) Eosinophils # (Manual) Basophils # (Manual) PT INR Fibrinogen dRVVT Confirm Interp Factor V Activity POC ABG pH 7.503 H POC ABG pCO2 30.1 L POC ABG pO2 ABG pO2 ABG HCO3 ABG Base Excess ABG Hemoglobin Oxyhemoglobin Sodium Potassium Chloride Carbon Dioxide BUN Creatinine Glucose POC Glucose 138 H 156 H Lactic Acid Calcium Ionized Calcium Phosphorus Magnesium Direct Bilirubin AST ALT Alkaline Phosphatase Lactate Dehydrogenase Troponin T C-Reactive Protein Total Protein Albumin Prealbumin Triglycerides Cholesterol LDL Cholesterol Direct HDL Cholesterol 25-OH Vitamin D Total PTH Intact Urine pH Urine WBC (Auto) Urine Creatinine Urine Total Protein Fluid Total Protein Vancomycin Trough Rheumatoid Factor Complement C4 Miscellaneous Test Crossmatch 12/20/16 12/20/16 12/20/16 00:03 06:17 07:07 WBC RBC Hgb Hct MCV MCH MCHC RDW Plt Count Lymph % (Auto) [place] % (Auto) Lymph # [place] # Baso # Seg Neutrophils % Seg Neuts % (Manual) Lymphocytes % (Manual) Monocytes % (Manual) Eosinophils % (Manual) Basophils % (Manual) Nucleated RBC % Seg Neutrophils # Seg Neutrophils # Man Lymphocytes # (Manual) Monocytes # (Manual) Eosinophils # (Manual) Basophils # (Manual) PT INR Fibrinogen dRVVT Confirm Interp Factor V Activity POC ABG pH POC ABG pCO2 POC ABG pO2 ABG pO2 ABG HCO3 ABG Base Excess ABG Hemoglobin Oxyhemoglobin Sodium Potassium Chloride 97.1 L Carbon Dioxide 20 L BUN 97 H Creatinine 1.8 H Glucose 153 H POC Glucose 152 H 175 H Lactic Acid Calcium Ionized Calcium Phosphorus Magnesium Direct Bilirubin AST ALT Alkaline Phosphatase Lactate Dehydrogenase Troponin T C-Reactive Protein Total Protein Albumin Prealbumin Triglycerides Cholesterol LDL Cholesterol Direct HDL Cholesterol 25-OH Vitamin D Total PTH Intact Urine pH Urine WBC (Auto) Urine Creatinine Urine Total Protein Fluid Total Protein Vancomycin Trough Rheumatoid Factor Complement C4 Miscellaneous Test Crossmatch 12/20/16 12/20/16 12/20/16 12:00 17:42 23:53 WBC RBC Hgb Hct MCV MCH MCHC RDW Plt Count Lymph % (Auto) [place] % (Auto) Lymph # [place] # Baso # Seg Neutrophils % Seg Neuts % (Manual) Lymphocytes % (Manual) Monocytes % (Manual) Eosinophils % (Manual) Basophils % (Manual) Nucleated RBC % Seg Neutrophils # Seg Neutrophils # Man Lymphocytes # (Manual) Monocytes # (Manual) Eosinophils # (Manual) Basophils # (Manual) PT INR Fibrinogen dRVVT Confirm Interp Factor V Activity POC ABG pH POC ABG pCO2 POC ABG pO2 ABG pO2 ABG HCO3 ABG Base Excess ABG Hemoglobin Oxyhemoglobin Sodium Potassium Chloride Carbon Dioxide BUN Creatinine Glucose POC Glucose 141 H 156 H 132 H Lactic Acid Calcium Ionized Calcium Phosphorus Magnesium Direct Bilirubin AST ALT Alkaline Phosphatase Lactate Dehydrogenase Troponin T C-Reactive Protein Total Protein Albumin Prealbumin Triglycerides Cholesterol LDL Cholesterol Direct HDL Cholesterol 25-OH Vitamin D Total PTH Intact Urine pH Urine WBC (Auto) Urine Creatinine Urine Total Protein Fluid Total Protein Vancomycin Trough Rheumatoid Factor Complement C4 Miscellaneous Test Crossmatch 12/21/16 12/21/16 12/21/16 05:49 08:50 12:19 WBC RBC Hgb Hct MCV MCH MCHC RDW Plt Count Lymph % (Auto) [place] % (Auto) Lymph # [place] # Baso # Seg Neutrophils % Seg Neuts % (Manual) Lymphocytes % (Manual) Monocytes % (Manual) Eosinophils % (Manual) Basophils % (Manual) Nucleated RBC % Seg Neutrophils # Seg Neutrophils # Man Lymphocytes # (Manual) Monocytes # (Manual) Eosinophils # (Manual) Basophils # (Manual) PT INR Fibrinogen dRVVT Confirm Interp Factor V Activity POC ABG pH POC ABG pCO2 POC ABG pO2 ABG pO2 ABG HCO3 ABG Base Excess ABG Hemoglobin Oxyhemoglobin Sodium Potassium 5.2 H D Chloride Carbon Dioxide BUN 63 H Creatinine Glucose 122 H POC Glucose 132 H 136 H Lactic Acid Calcium 8.3 L Ionized Calcium Phosphorus Magnesium Direct Bilirubin AST ALT Alkaline Phosphatase Lactate Dehydrogenase Troponin T C-Reactive Protein Total Protein Albumin Prealbumin Triglycerides Cholesterol LDL Cholesterol Direct HDL Cholesterol 25-OH Vitamin D Total PTH Intact Urine pH Urine WBC (Auto) Urine Creatinine Urine Total Protein Fluid Total Protein Vancomycin Trough Rheumatoid Factor Complement C4 Miscellaneous Test Crossmatch 12/21/16 12/21/16 12/22/16 17:22 23:58 05:49 WBC RBC Hgb Hct MCV MCH MCHC RDW Plt Count Lymph % (Auto) [place] % (Auto) Lymph # [place] # Baso # Seg Neutrophils % Seg Neuts % (Manual) Lymphocytes % (Manual) Monocytes % (Manual) Eosinophils % (Manual) Basophils % (Manual) Nucleated RBC % Seg Neutrophils # Seg Neutrophils # Man Lymphocytes # (Manual) Monocytes # (Manual) Eosinophils # (Manual) Basophils # (Manual) PT INR Fibrinogen dRVVT Confirm Interp Factor V Activity POC ABG pH POC ABG pCO2 POC ABG pO2 ABG pO2 ABG HCO3 ABG Base Excess ABG Hemoglobin Oxyhemoglobin Sodium Potassium Chloride Carbon Dioxide BUN Creatinine Glucose POC Glucose 135 H 149 H 140 H Lactic Acid Calcium Ionized Calcium Phosphorus Magnesium Direct Bilirubin AST ALT Alkaline Phosphatase Lactate Dehydrogenase Troponin T C-Reactive Protein Total Protein Albumin Prealbumin Triglycerides Cholesterol LDL Cholesterol Direct HDL Cholesterol 25-OH Vitamin D Total PTH Intact Urine pH Urine WBC (Auto) Urine Creatinine Urine Total Protein Fluid Total Protein Vancomycin Trough Rheumatoid Factor Complement C4 Miscellaneous Test Crossmatch 12/22/16 12/22/16 12/22/16 06:10 11:17 17:31 WBC RBC Hgb Hct MCV MCH MCHC RDW Plt Count Lymph % (Auto) [place] % (Auto) Lymph # [place] # Baso # Seg Neutrophils % Seg Neuts % (Manual) Lymphocytes % (Manual) Monocytes % (Manual) Eosinophils % (Manual) Basophils % (Manual) Nucleated RBC % Seg Neutrophils # Seg Neutrophils # Man Lymphocytes # (Manual) Monocytes # (Manual) Eosinophils # (Manual) Basophils # (Manual) PT INR Fibrinogen dRVVT Confirm Interp Factor V Activity POC ABG pH POC ABG pCO2 POC ABG pO2 ABG pO2 ABG HCO3 ABG Base Excess ABG Hemoglobin Oxyhemoglobin Sodium Potassium Chloride Carbon Dioxide BUN 76 H Creatinine 1.5 H Glucose 241 H POC Glucose 193 H 148 H Lactic Acid Calcium Ionized Calcium Phosphorus Magnesium Direct Bilirubin AST ALT Alkaline Phosphatase Lactate Dehydrogenase Troponin T C-Reactive Protein Total Protein Albumin Prealbumin Triglycerides Cholesterol LDL Cholesterol Direct HDL Cholesterol 25-OH Vitamin D Total PTH Intact Urine pH Urine WBC (Auto) Urine Creatinine Urine Total Protein Fluid Total Protein Vancomycin Trough Rheumatoid Factor Complement C4 Miscellaneous Test Crossmatch 12/22/16 12/23/16 12/23/16 23:58 05:00 05:26 WBC RBC Hgb Hct MCV MCH MCHC RDW Plt Count Lymph % (Auto) [place] % (Auto) Lymph # [place] # Baso # Seg Neutrophils % Seg Neuts % (Manual) Lymphocytes % (Manual) Monocytes % (Manual) Eosinophils % (Manual) Basophils % (Manual) Nucleated RBC % Seg Neutrophils # Seg Neutrophils # Man Lymphocytes # (Manual) Monocytes # (Manual) Eosinophils # (Manual) Basophils # (Manual) PT INR Fibrinogen dRVVT Confirm Interp Factor V Activity POC ABG pH POC ABG pCO2 POC ABG pO2 ABG pO2 ABG HCO3 ABG Base Excess ABG Hemoglobin Oxyhemoglobin Sodium Potassium Chloride Carbon Dioxide BUN 49 H Creatinine Glucose 143 H POC Glucose 165 H 154 H Lactic Acid Calcium 8.2 L Ionized Calcium Phosphorus Magnesium 1.60 L Direct Bilirubin AST ALT Alkaline Phosphatase Lactate Dehydrogenase Troponin T C-Reactive Protein Total Protein Albumin Prealbumin Triglycerides Cholesterol LDL Cholesterol Direct HDL Cholesterol 25-OH Vitamin D Total PTH Intact Urine pH Urine WBC (Auto) Urine Creatinine Urine Total Protein Fluid Total Protein Vancomycin Trough Rheumatoid Factor Complement C4 Miscellaneous Test Crossmatch 12/23/16 12/23/16 12/24/16 12:35 17:01 00:01 WBC RBC Hgb Hct MCV MCH MCHC RDW Plt Count Lymph % (Auto) [place] % (Auto) Lymph # [place] # Baso # Seg Neutrophils % Seg Neuts % (Manual) Lymphocytes % (Manual) Monocytes % (Manual) Eosinophils % (Manual) Basophils % (Manual) Nucleated RBC % Seg Neutrophils # Seg Neutrophils # Man Lymphocytes # (Manual) Monocytes # (Manual) Eosinophils # (Manual) Basophils # (Manual) PT INR Fibrinogen dRVVT Confirm Interp Factor V Activity POC ABG pH POC ABG pCO2 POC ABG pO2 ABG pO2 ABG HCO3 ABG Base Excess ABG Hemoglobin Oxyhemoglobin Sodium Potassium Chloride Carbon Dioxide BUN Creatinine Glucose POC Glucose 164 H 149 H 135 H Lactic Acid Calcium Ionized Calcium Phosphorus Magnesium Direct Bilirubin AST ALT Alkaline Phosphatase Lactate Dehydrogenase Troponin T C-Reactive Protein Total Protein Albumin Prealbumin Triglycerides Cholesterol LDL Cholesterol Direct HDL Cholesterol 25-OH Vitamin D Total PTH Intact Urine pH Urine WBC (Auto) Urine Creatinine Urine Total Protein Fluid Total Protein Vancomycin Trough Rheumatoid Factor Complement C4 Miscellaneous Test Crossmatch 12/24/16 12/24/16 12/24/16 05:41 07:01 11:38 WBC RBC Hgb Hct MCV MCH MCHC RDW Plt Count Lymph % (Auto) [place] % (Auto) Lymph # [place] # Baso # Seg Neutrophils % Seg Neuts % (Manual) Lymphocytes % (Manual) Monocytes % (Manual) Eosinophils % (Manual) Basophils % (Manual) Nucleated RBC % Seg Neutrophils # Seg Neutrophils # Man Lymphocytes # (Manual) Monocytes # (Manual) Eosinophils # (Manual) Basophils # (Manual) PT INR Fibrinogen dRVVT Confirm Interp Factor V Activity POC ABG pH POC ABG pCO2 POC ABG pO2 ABG pO2 ABG HCO3 ABG Base Excess ABG Hemoglobin Oxyhemoglobin Sodium Potassium Chloride Carbon Dioxide BUN 72 H Creatinine 1.3 H Glucose 130 H POC Glucose 132 H 156 H Lactic Acid Calcium 8.2 L Ionized Calcium Phosphorus Magnesium Direct Bilirubin AST ALT Alkaline Phosphatase Lactate Dehydrogenase Troponin T C-Reactive Protein Total Protein Albumin Prealbumin Triglycerides Cholesterol LDL Cholesterol Direct HDL Cholesterol 25-OH Vitamin D Total PTH Intact Urine pH Urine WBC (Auto) Urine Creatinine Urine Total Protein Fluid Total Protein Vancomycin Trough Rheumatoid Factor Complement C4 Miscellaneous Test Crossmatch 12/24/16 12/25/16 12/25/16 17:53 00:23 05:45 WBC RBC Hgb Hct MCV MCH MCHC RDW Plt Count Lymph % (Auto) [place] % (Auto) Lymph # [place] # Baso # Seg Neutrophils % Seg Neuts % (Manual) Lymphocytes % (Manual) Monocytes % (Manual) Eosinophils % (Manual) Basophils % (Manual) Nucleated RBC % Seg Neutrophils # Seg Neutrophils # Man Lymphocytes # (Manual) Monocytes # (Manual) Eosinophils # (Manual) Basophils # (Manual) PT INR Fibrinogen dRVVT Confirm Interp Factor V Activity POC ABG pH POC ABG pCO2 POC ABG pO2 ABG pO2 ABG HCO3 ABG Base Excess ABG Hemoglobin Oxyhemoglobin Sodium 146 H Potassium Chloride Carbon Dioxide BUN 51 H Creatinine Glucose 109 H POC Glucose 169 H 117 H Lactic Acid Calcium Ionized Calcium Phosphorus Magnesium Direct Bilirubin AST ALT Alkaline Phosphatase Lactate Dehydrogenase Troponin T C-Reactive Protein Total Protein Albumin Prealbumin Triglycerides Cholesterol LDL Cholesterol Direct HDL Cholesterol 25-OH Vitamin D Total PTH Intact Urine pH Urine WBC (Auto) Urine Creatinine Urine Total Protein Fluid Total Protein Vancomycin Trough Rheumatoid Factor Complement C4 Miscellaneous Test Crossmatch 12/25/16 12/25/16 12/25/16 06:43 11:29 17:14 WBC RBC Hgb Hct MCV MCH MCHC RDW Plt Count Lymph % (Auto) [place] % (Auto) Lymph # [place] # Baso # Seg Neutrophils % Seg Neuts % (Manual) Lymphocytes % (Manual) Monocytes % (Manual) Eosinophils % (Manual) Basophils % (Manual) Nucleated RBC % Seg Neutrophils # Seg Neutrophils # Man Lymphocytes # (Manual) Monocytes # (Manual) Eosinophils # (Manual) Basophils # (Manual) PT INR Fibrinogen dRVVT Confirm Interp Factor V Activity POC ABG pH POC ABG pCO2 POC ABG pO2 ABG pO2 ABG HCO3 ABG Base Excess ABG Hemoglobin Oxyhemoglobin Sodium Potassium Chloride Carbon Dioxide BUN Creatinine Glucose POC Glucose 117 H 128 H 120 H Lactic Acid Calcium Ionized Calcium Phosphorus Magnesium Direct Bilirubin AST ALT Alkaline Phosphatase Lactate Dehydrogenase Troponin T C-Reactive Protein Total Protein Albumin Prealbumin Triglycerides Cholesterol LDL Cholesterol Direct HDL Cholesterol 25-OH Vitamin D Total PTH Intact Urine pH Urine WBC (Auto) Urine Creatinine Urine Total Protein Fluid Total Protein Vancomycin Trough Rheumatoid Factor Complement C4 Miscellaneous Test Crossmatch 12/25/16 12/26/16 12/26/16 23:54 05:40 05:50 WBC 16.2 H RBC 2.32 L Hgb 6.2 L Hct 20.1 L MCV MCH 27 L MCHC RDW 18.6 H Plt Count Lymph % (Auto) [place] % (Auto) Lymph # [place] # Baso # Seg Neutrophils % Seg Neuts % (Manual) Lymphocytes % (Manual) Monocytes % (Manual) Eosinophils % (Manual) Basophils % (Manual) Nucleated RBC % Seg Neutrophils # Seg Neutrophils # Man Lymphocytes # (Manual) Monocytes # (Manual) Eosinophils # (Manual) Basophils # (Manual) PT INR Fibrinogen dRVVT Confirm Interp Factor V Activity POC ABG pH POC ABG pCO2 POC ABG pO2 ABG pO2 ABG HCO3 ABG Base Excess ABG Hemoglobin Oxyhemoglobin Sodium Potassium Chloride Carbon Dioxide BUN Creatinine Glucose POC Glucose 126 H 132 H Lactic Acid Calcium Ionized Calcium Phosphorus Magnesium Direct Bilirubin AST ALT Alkaline Phosphatase Lactate Dehydrogenase Troponin T C-Reactive Protein Total Protein Albumin Prealbumin Triglycerides Cholesterol LDL Cholesterol Direct HDL Cholesterol 25-OH Vitamin D Total PTH Intact Urine pH Urine WBC (Auto) Urine Creatinine Urine Total Protein Fluid Total Protein Vancomycin Trough Rheumatoid Factor Complement C4 Miscellaneous Test Crossmatch 12/26/16 12/26/16 12/26/16 05:50 12:17 12:33 WBC RBC Hgb Hct MCV MCH MCHC RDW Plt Count Lymph % (Auto) [place] % (Auto) Lymph # [place] # Baso # Seg Neutrophils % Seg Neuts % (Manual) Lymphocytes % (Manual) Monocytes % (Manual) Eosinophils % (Manual) Basophils % (Manual) Nucleated RBC % Seg Neutrophils # Seg Neutrophils # Man Lymphocytes # (Manual) Monocytes # (Manual) Eosinophils # (Manual) Basophils # (Manual) PT INR Fibrinogen dRVVT Confirm Interp Factor V Activity POC ABG pH POC ABG pCO2 POC ABG pO2 ABG pO2 ABG HCO3 ABG Base Excess ABG Hemoglobin Oxyhemoglobin Sodium Potassium Chloride Carbon Dioxide BUN 73 H Creatinine 1.3 H Glucose 113 H POC Glucose 117 H Lactic Acid Calcium Ionized Calcium Phosphorus Magnesium Direct Bilirubin AST ALT Alkaline Phosphatase Lactate Dehydrogenase Troponin T C-Reactive Protein Total Protein Albumin Prealbumin Triglycerides Cholesterol LDL Cholesterol Direct HDL Cholesterol 25-OH Vitamin D Total PTH Intact Urine pH Urine WBC (Auto) Urine Creatinine Urine Total Protein Fluid Total Protein Vancomycin Trough Rheumatoid Factor Complement C4 Miscellaneous Test Crossmatch See Detail 12/26/16 12/26/16 12/27/16 20:00 23:21 05:00 WBC RBC Hgb 8.4 L Hct 26.3 L D MCV MCH MCHC RDW Plt Count Lymph % (Auto) [place] % (Auto) Lymph # [place] # Baso # Seg Neutrophils % Seg Neuts % (Manual) Lymphocytes % (Manual) Monocytes % (Manual) Eosinophils % (Manual) Basophils % (Manual) Nucleated RBC % Seg Neutrophils # Seg Neutrophils # Man Lymphocytes # (Manual) Monocytes # (Manual) Eosinophils # (Manual) Basophils # (Manual) PT INR Fibrinogen dRVVT Confirm Interp Factor V Activity POC ABG pH POC ABG pCO2 POC ABG pO2 ABG pO2 ABG HCO3 ABG Base Excess ABG Hemoglobin Oxyhemoglobin Sodium Potassium Chloride Carbon Dioxide BUN 85 H Creatinine 1.6 H Glucose 118 H POC Glucose 124 H Lactic Acid Calcium Ionized Calcium Phosphorus 4.80 H Magnesium Direct Bilirubin AST ALT Alkaline Phosphatase Lactate Dehydrogenase Troponin T C-Reactive Protein Total Protein Albumin Prealbumin Triglycerides Cholesterol LDL Cholesterol Direct HDL Cholesterol 25-OH Vitamin D Total PTH Intact Urine pH Urine WBC (Auto) Urine Creatinine Urine Total Protein Fluid Total Protein Vancomycin Trough Rheumatoid Factor Complement C4 Miscellaneous Test Crossmatch 12/27/16 12/27/16 12/27/16 05:00 05:35 12:24 WBC RBC Hgb 7.6 L Hct 22.8 L MCV MCH MCHC RDW Plt Count Lymph % (Auto) [place] % (Auto) Lymph # [place] # Baso # Seg Neutrophils % Seg Neuts % (Manual) Lymphocytes % (Manual) Monocytes % (Manual) Eosinophils % (Manual) Basophils % (Manual) Nucleated RBC % Seg Neutrophils # Seg Neutrophils # Man Lymphocytes # (Manual) Monocytes # (Manual) Eosinophils # (Manual) Basophils # (Manual) PT INR Fibrinogen dRVVT Confirm Interp Factor V Activity POC ABG pH POC ABG pCO2 POC ABG pO2 ABG pO2 ABG HCO3 ABG Base Excess ABG Hemoglobin Oxyhemoglobin Sodium Potassium Chloride Carbon Dioxide BUN Creatinine Glucose POC Glucose 115 H 131 H Lactic Acid Calcium Ionized Calcium Phosphorus Magnesium Direct Bilirubin AST ALT Alkaline Phosphatase Lactate Dehydrogenase Troponin T C-Reactive Protein Total Protein Albumin Prealbumin Triglycerides Cholesterol LDL Cholesterol Direct HDL Cholesterol 25-OH Vitamin D Total PTH Intact Urine pH Urine WBC (Auto) Urine Creatinine Urine Total Protein Fluid Total Protein Vancomycin Trough Rheumatoid Factor Complement C4 Miscellaneous Test Crossmatch 12/27/16 12/28/16 12/28/16 17:16 00:18 04:00 WBC RBC Hgb Hct MCV MCH MCHC RDW Plt Count Lymph % (Auto) [place] % (Auto) Lymph # [place] # Baso # Seg Neutrophils % Seg Neuts % (Manual) Lymphocytes % (Manual) Monocytes % (Manual) Eosinophils % (Manual) Basophils % (Manual) Nucleated RBC % Seg Neutrophils # Seg Neutrophils # Man Lymphocytes # (Manual) Monocytes # (Manual) Eosinophils # (Manual) Basophils # (Manual) PT INR Fibrinogen dRVVT Confirm Interp Factor V Activity POC ABG pH POC ABG pCO2 POC ABG pO2 ABG pO2 ABG HCO3 ABG Base Excess ABG Hemoglobin Oxyhemoglobin Sodium Potassium 3.5 L Chloride Carbon Dioxide BUN 57 H Creatinine Glucose 118 H POC Glucose 136 H 120 H Lactic Acid Calcium 8.3 L Ionized Calcium Phosphorus Magnesium Direct Bilirubin AST ALT Alkaline Phosphatase Lactate Dehydrogenase Troponin T C-Reactive Protein Total Protein Albumin Prealbumin Triglycerides Cholesterol LDL Cholesterol Direct HDL Cholesterol 25-OH Vitamin D Total PTH Intact Urine pH Urine WBC (Auto) Urine Creatinine Urine Total Protein Fluid Total Protein Vancomycin Trough Rheumatoid Factor Complement C4 Miscellaneous Test Crossmatch 12/28/16 12/28/16 12/28/16 04:00 05:11 08:30 WBC 17.0 H RBC 2.58 L Hgb 7.1 L Hct 22.0 L MCV MCH MCHC RDW 17.6 H Plt Count Lymph % (Auto) 12.2 L [place] % (Auto) Lymph # [place] # 1.1 H Baso # Seg Neutrophils % 80.5 H Seg Neuts % (Manual) Lymphocytes % (Manual) Monocytes % (Manual) Eosinophils % (Manual) Basophils % (Manual) Nucleated RBC % Seg Neutrophils # 13.7 H Seg Neutrophils # Man Lymphocytes # (Manual) Monocytes # (Manual) Eosinophils # (Manual) Basophils # (Manual) PT 16.1 H INR 1.23 H Fibrinogen dRVVT Confirm Interp Factor V Activity POC ABG pH POC ABG pCO2 POC ABG pO2 ABG pO2 ABG HCO3 ABG Base Excess ABG Hemoglobin Oxyhemoglobin Sodium Potassium Chloride Carbon Dioxide BUN Creatinine Glucose POC Glucose 122 H Lactic Acid Calcium Ionized Calcium Phosphorus Magnesium Direct Bilirubin AST ALT Alkaline Phosphatase Lactate Dehydrogenase Troponin T C-Reactive Protein Total Protein Albumin Prealbumin Triglycerides Cholesterol LDL Cholesterol Direct HDL Cholesterol 25-OH Vitamin D Total PTH Intact Urine pH Urine WBC (Auto) Urine Creatinine Urine Total Protein Fluid Total Protein Vancomycin Trough Rheumatoid Factor Complement C4 Miscellaneous Test Crossmatch 12/28/16 12/28/16 12/28/16 12:27 16:32 23:46 WBC RBC Hgb Hct MCV MCH MCHC RDW Plt Count Lymph % (Auto) [place] % (Auto) Lymph # [place] # Baso # Seg Neutrophils % Seg Neuts % (Manual) Lymphocytes % (Manual) Monocytes % (Manual) Eosinophils % (Manual) Basophils % (Manual) Nucleated RBC % Seg Neutrophils # Seg Neutrophils # Man Lymphocytes # (Manual) Monocytes # (Manual) Eosinophils # (Manual) Basophils # (Manual) PT INR Fibrinogen dRVVT Confirm Interp Factor V Activity POC ABG pH POC ABG pCO2 POC ABG pO2 ABG pO2 ABG HCO3 ABG Base Excess ABG Hemoglobin Oxyhemoglobin Sodium Potassium Chloride Carbon Dioxide BUN Creatinine Glucose POC Glucose 127 H 117 H 108 H Lactic Acid Calcium Ionized Calcium Phosphorus Magnesium Direct Bilirubin AST ALT Alkaline Phosphatase Lactate Dehydrogenase Troponin T C-Reactive Protein Total Protein Albumin Prealbumin Triglycerides Cholesterol LDL Cholesterol Direct HDL Cholesterol 25-OH Vitamin D Total PTH Intact Urine pH Urine WBC (Auto) Urine Creatinine Urine Total Protein Fluid Total Protein Vancomycin Trough Rheumatoid Factor Complement C4 Miscellaneous Test Crossmatch 12/29/16 12/29/16 12/29/16 05:15 05:15 05:32 WBC RBC Hgb Hct MCV MCH MCHC RDW Plt Count Lymph % (Auto) [place] % (Auto) Lymph # [place] # Baso # Seg Neutrophils % Seg Neuts % (Manual) Lymphocytes % (Manual) Monocytes % (Manual) Eosinophils % (Manual) Basophils % (Manual) Nucleated RBC % Seg Neutrophils # Seg Neutrophils # Man Lymphocytes # (Manual) Monocytes # (Manual) Eosinophils # (Manual) Basophils # (Manual) PT INR Fibrinogen dRVVT Confirm Interp Factor V Activity POC ABG pH POC ABG pCO2 POC ABG pO2 ABG pO2 ABG HCO3 ABG Base Excess ABG Hemoglobin Oxyhemoglobin Sodium Potassium Chloride Carbon Dioxide BUN 74 H Creatinine 1.6 H Glucose 111 H POC Glucose 123 H Lactic Acid Calcium Ionized Calcium Phosphorus Magnesium Direct Bilirubin AST ALT Alkaline Phosphatase Lactate Dehydrogenase Troponin T C-Reactive Protein Total Protein Albumin Prealbumin 0.110 L Triglycerides Cholesterol LDL Cholesterol Direct HDL Cholesterol 25-OH Vitamin D Total PTH Intact Urine pH Urine WBC (Auto) Urine Creatinine Urine Total Protein Fluid Total Protein Vancomycin Trough Rheumatoid Factor Complement C4 Miscellaneous Test Crossmatch 12/29/16 12/29/16 12/29/16 11:43 13:45 14:00 WBC 13.8 H RBC 2.26 L Hgb 6.3 L Hct 20.4 L MCV MCH MCHC RDW 18.3 H Plt Count Lymph % (Auto) [place] % (Auto) Lymph # [place] # 0.9 H Baso # Seg Neutrophils % 78.6 H Seg Neuts % (Manual) Lymphocytes % (Manual) Monocytes % (Manual) Eosinophils % (Manual) Basophils % (Manual) Nucleated RBC % Seg Neutrophils # 10.8 H Seg Neutrophils # Man Lymphocytes # (Manual) Monocytes # (Manual) Eosinophils # (Manual) Basophils # (Manual) PT INR Fibrinogen dRVVT Confirm Interp Factor V Activity POC ABG pH POC ABG pCO2 POC ABG pO2 ABG pO2 ABG HCO3 ABG Base Excess ABG Hemoglobin Oxyhemoglobin Sodium Potassium Chloride Carbon Dioxide BUN Creatinine Glucose POC Glucose 133 H Lactic Acid Calcium Ionized Calcium Phosphorus Magnesium Direct Bilirubin AST ALT Alkaline Phosphatase Lactate Dehydrogenase Troponin T C-Reactive Protein Total Protein Albumin Prealbumin Triglycerides Cholesterol LDL Cholesterol Direct HDL Cholesterol 25-OH Vitamin D Total PTH Intact Urine pH Urine WBC (Auto) Urine Creatinine Urine Total Protein Fluid Total Protein Vancomycin Trough Rheumatoid Factor Complement C4 Miscellaneous Test Crossmatch See Detail 12/29/16 12/29/16 12/29/16 17:03 23:15 23:22 WBC RBC Hgb 7.3 L Hct 22.3 L MCV MCH MCHC RDW Plt Count Lymph % (Auto) [place] % (Auto) Lymph # [place] # Baso # Seg Neutrophils % Seg Neuts % (Manual) Lymphocytes % (Manual) Monocytes % (Manual) Eosinophils % (Manual) Basophils % (Manual) Nucleated RBC % Seg Neutrophils # Seg Neutrophils # Man Lymphocytes # (Manual) Monocytes # (Manual) Eosinophils # (Manual) Basophils # (Manual) PT INR Fibrinogen dRVVT Confirm Interp Factor V Activity POC ABG pH POC ABG pCO2 POC ABG pO2 ABG pO2 ABG HCO3 ABG Base Excess ABG Hemoglobin Oxyhemoglobin Sodium Potassium Chloride Carbon Dioxide BUN Creatinine Glucose POC Glucose 139 H 120 H Lactic Acid Calcium Ionized Calcium Phosphorus Magnesium Direct Bilirubin AST ALT Alkaline Phosphatase Lactate Dehydrogenase Troponin T C-Reactive Protein Total Protein Albumin Prealbumin Triglycerides Cholesterol LDL Cholesterol Direct HDL Cholesterol 25-OH Vitamin D Total PTH Intact Urine pH Urine WBC (Auto) Urine Creatinine Urine Total Protein Fluid Total Protein Vancomycin Trough Rheumatoid Factor Complement C4 Miscellaneous Test Crossmatch 12/30/16 12/30/16 12/30/16 04:20 04:20 05:43 WBC 15.6 H RBC 2.81 L Hgb 8.0 L Hct 24.0 L MCV MCH MCHC RDW 16.9 H Plt Count Lymph % (Auto) [place] % (Auto) Lymph # [place] # 1.0 H Baso # Seg Neutrophils % 76.2 H Seg Neuts % (Manual) Lymphocytes % (Manual) Monocytes % (Manual) Eosinophils % (Manual) Basophils % (Manual) Nucleated RBC % Seg Neutrophils # 11.9 H Seg Neutrophils # Man Lymphocytes # (Manual) Monocytes # (Manual) Eosinophils # (Manual) Basophils # (Manual) PT INR Fibrinogen dRVVT Confirm Interp Factor V Activity POC ABG pH POC ABG pCO2 POC ABG pO2 ABG pO2 ABG HCO3 ABG Base Excess ABG Hemoglobin Oxyhemoglobin Sodium Potassium Chloride Carbon Dioxide BUN 87 H Creatinine 1.8 H Glucose 119 H POC Glucose 115 H Lactic Acid Calcium Ionized Calcium Phosphorus Magnesium Direct Bilirubin AST ALT Alkaline Phosphatase Lactate Dehydrogenase Troponin T C-Reactive Protein Total Protein Albumin Prealbumin Triglycerides Cholesterol LDL Cholesterol Direct HDL Cholesterol 25-OH Vitamin D Total PTH Intact Urine pH Urine WBC (Auto) Urine Creatinine Urine Total Protein Fluid Total Protein Vancomycin Trough Rheumatoid Factor Complement C4 Miscellaneous Test Crossmatch 12/30/16 12/30/16 12/31/16 17:27 23:21 04:00 WBC RBC Hgb Hct MCV MCH MCHC RDW Plt Count Lymph % (Auto) [place] % (Auto) Lymph # [place] # Baso # Seg Neutrophils % Seg Neuts % (Manual) Lymphocytes % (Manual) Monocytes % (Manual) Eosinophils % (Manual) Basophils % (Manual) Nucleated RBC % Seg Neutrophils # Seg Neutrophils # Man Lymphocytes # (Manual) Monocytes # (Manual) Eosinophils # (Manual) Basophils # (Manual) PT INR Fibrinogen dRVVT Confirm Interp Factor V Activity POC ABG pH POC ABG pCO2 POC ABG pO2 ABG pO2 ABG HCO3 ABG Base Excess ABG Hemoglobin Oxyhemoglobin Sodium Potassium Chloride Carbon Dioxide BUN 59 H Creatinine Glucose 298 H POC Glucose 144 H 125 H Lactic Acid Calcium Ionized Calcium Phosphorus Magnesium Direct Bilirubin AST ALT Alkaline Phosphatase Lactate Dehydrogenase Troponin T C-Reactive Protein Total Protein Albumin Prealbumin Triglycerides Cholesterol LDL Cholesterol Direct HDL Cholesterol 25-OH Vitamin D Total PTH Intact Urine pH Urine WBC (Auto) Urine Creatinine Urine Total Protein Fluid Total Protein Vancomycin Trough Rheumatoid Factor Complement C4 Miscellaneous Test Crossmatch 12/31/16 12/31/16 12/31/16 05:11 12:18 18:17 WBC RBC Hgb Hct MCV MCH MCHC RDW Plt Count Lymph % (Auto) [place] % (Auto) Lymph # [place] # Baso # Seg Neutrophils % Seg Neuts % (Manual) Lymphocytes % (Manual) Monocytes % (Manual) Eosinophils % (Manual) Basophils % (Manual) Nucleated RBC % Seg Neutrophils # Seg Neutrophils # Man Lymphocytes # (Manual) Monocytes # (Manual) Eosinophils # (Manual) Basophils # (Manual) PT INR Fibrinogen dRVVT Confirm Interp Factor V Activity POC ABG pH POC ABG pCO2 POC ABG pO2 ABG pO2 ABG HCO3 ABG Base Excess ABG Hemoglobin Oxyhemoglobin Sodium Potassium Chloride Carbon Dioxide BUN Creatinine Glucose POC Glucose 167 H 125 H 133 H Lactic Acid Calcium Ionized Calcium Phosphorus Magnesium Direct Bilirubin AST ALT Alkaline Phosphatase Lactate Dehydrogenase Troponin T C-Reactive Protein Total Protein Albumin Prealbumin Triglycerides Cholesterol LDL Cholesterol Direct HDL Cholesterol 25-OH Vitamin D Total PTH Intact Urine pH Urine WBC (Auto) Urine Creatinine Urine Total Protein Fluid Total Protein Vancomycin Trough Rheumatoid Factor Complement C4 Miscellaneous Test Crossmatch 12/31/16 01/01/17 01/01/17 23:55 05:00 05:12 WBC RBC Hgb Hct MCV MCH MCHC RDW Plt Count Lymph % (Auto) [place] % (Auto) Lymph # [place] # Baso # Seg Neutrophils % Seg Neuts % (Manual) Lymphocytes % (Manual) Monocytes % (Manual) Eosinophils % (Manual) Basophils % (Manual) Nucleated RBC % Seg Neutrophils # Seg Neutrophils # Man Lymphocytes # (Manual) Monocytes # (Manual) Eosinophils # (Manual) Basophils # (Manual) PT INR Fibrinogen dRVVT Confirm Interp Factor V Activity POC ABG pH POC ABG pCO2 POC ABG pO2 ABG pO2 ABG HCO3 ABG Base Excess ABG Hemoglobin Oxyhemoglobin Sodium Potassium Chloride Carbon Dioxide BUN 76 H Creatinine 1.5 H Glucose 109 H POC Glucose 129 H 129 H Lactic Acid Calcium Ionized Calcium Phosphorus Magnesium Direct Bilirubin AST ALT Alkaline Phosphatase 536 H Lactate Dehydrogenase Troponin T C-Reactive Protein Total Protein Albumin 1.5 L Prealbumin Triglycerides Cholesterol LDL Cholesterol Direct HDL Cholesterol 25-OH Vitamin D Total PTH Intact Urine pH Urine WBC (Auto) Urine Creatinine Urine Total Protein Fluid Total Protein Vancomycin Trough Rheumatoid Factor Complement C4 Miscellaneous Test Crossmatch 01/01/17 01/01/17 01/01/17 12:25 17:01 23:32 WBC RBC Hgb Hct MCV MCH MCHC RDW Plt Count Lymph % (Auto) [place] % (Auto) Lymph # [place] # Baso # Seg Neutrophils % Seg Neuts % (Manual) Lymphocytes % (Manual) Monocytes % (Manual) Eosinophils % (Manual) Basophils % (Manual) Nucleated RBC % Seg Neutrophils # Seg Neutrophils # Man Lymphocytes # (Manual) Monocytes # (Manual) Eosinophils # (Manual) Basophils # (Manual) PT INR Fibrinogen dRVVT Confirm Interp Factor V Activity POC ABG pH POC ABG pCO2 POC ABG pO2 ABG pO2 ABG HCO3 ABG Base Excess ABG Hemoglobin Oxyhemoglobin Sodium Potassium Chloride Carbon Dioxide BUN Creatinine Glucose POC Glucose 140 H 142 H 112 H Lactic Acid Calcium Ionized Calcium Phosphorus Magnesium Direct Bilirubin AST ALT Alkaline Phosphatase Lactate Dehydrogenase Troponin T C-Reactive Protein Total Protein Albumin Prealbumin Triglycerides Cholesterol LDL Cholesterol Direct HDL Cholesterol 25-OH Vitamin D Total PTH Intact Urine pH Urine WBC (Auto) Urine Creatinine Urine Total Protein Fluid Total Protein Vancomycin Trough Rheumatoid Factor Complement C4 Miscellaneous Test Crossmatch 01/02/17 01/02/17 01/02/17 04:56 06:00 11:37 WBC RBC Hgb Hct MCV MCH MCHC RDW Plt Count Lymph % (Auto) [place] % (Auto) Lymph # [place] # Baso # Seg Neutrophils % Seg Neuts % (Manual) Lymphocytes % (Manual) Monocytes % (Manual) Eosinophils % (Manual) Basophils % (Manual) Nucleated RBC % Seg Neutrophils # Seg Neutrophils # Man Lymphocytes # (Manual) Monocytes # (Manual) Eosinophils # (Manual) Basophils # (Manual) PT INR Fibrinogen dRVVT Confirm Interp Factor V Activity POC ABG pH POC ABG pCO2 POC ABG pO2 ABG pO2 ABG HCO3 ABG Base Excess ABG Hemoglobin Oxyhemoglobin Sodium Potassium Chloride Carbon Dioxide BUN 88 H Creatinine 1.7 H Glucose 113 H POC Glucose 136 H 200 H Lactic Acid Calcium Ionized Calcium Phosphorus Magnesium Direct Bilirubin AST ALT Alkaline Phosphatase Lactate Dehydrogenase Troponin T C-Reactive Protein Total Protein Albumin Prealbumin Triglycerides Cholesterol LDL Cholesterol Direct HDL Cholesterol 25-OH Vitamin D Total PTH Intact Urine pH Urine WBC (Auto) Urine Creatinine Urine Total Protein Fluid Total Protein Vancomycin Trough Rheumatoid Factor Complement C4 Miscellaneous Test Crossmatch 01/02/17 01/02/17 01/03/17 17:42 22:52 04:54 WBC RBC Hgb Hct MCV MCH MCHC RDW Plt Count Lymph % (Auto) [place] % (Auto) Lymph # [place] # Baso # Seg Neutrophils % Seg Neuts % (Manual) Lymphocytes % (Manual) Monocytes % (Manual) Eosinophils % (Manual) Basophils % (Manual) Nucleated RBC % Seg Neutrophils # Seg Neutrophils # Man Lymphocytes # (Manual) Monocytes # (Manual) Eosinophils # (Manual) Basophils # (Manual) PT INR Fibrinogen dRVVT Confirm Interp Factor V Activity POC ABG pH POC ABG pCO2 POC ABG pO2 ABG pO2 ABG HCO3 ABG Base Excess ABG Hemoglobin Oxyhemoglobin Sodium Potassium Chloride Carbon Dioxide BUN Creatinine Glucose POC Glucose 112 H 133 H 111 H Lactic Acid Calcium Ionized Calcium Phosphorus Magnesium Direct Bilirubin AST ALT Alkaline Phosphatase Lactate Dehydrogenase Troponin T C-Reactive Protein Total Protein Albumin Prealbumin Triglycerides Cholesterol LDL Cholesterol Direct HDL Cholesterol 25-OH Vitamin D Total PTH Intact Urine pH Urine WBC (Auto) Urine Creatinine Urine Total Protein Fluid Total Protein Vancomycin Trough Rheumatoid Factor Complement C4 Miscellaneous Test Crossmatch 01/03/17 01/03/17 01/03/17 05:00 05:00 14:02 WBC 11.2 H RBC 2.56 L Hgb 7.2 L Hct 22.3 L MCV MCH MCHC RDW 17.3 H Plt Count Lymph % (Auto) [place] % (Auto) 10.0 H Lymph # [place] # 1.1 H Baso # Seg Neutrophils % 70.5 H Seg Neuts % (Manual) Lymphocytes % (Manual) Monocytes % (Manual) Eosinophils % (Manual) Basophils % (Manual) Nucleated RBC % Seg Neutrophils # 7.9 H Seg Neutrophils # Man Lymphocytes # (Manual) Monocytes # (Manual) Eosinophils # (Manual) Basophils # (Manual) PT INR Fibrinogen dRVVT Confirm Interp Factor V Activity POC ABG pH POC ABG pCO2 POC ABG pO2 ABG pO2 ABG HCO3 ABG Base Excess ABG Hemoglobin Oxyhemoglobin Sodium Potassium Chloride Carbon Dioxide BUN 60 H Creatinine 1.3 H Glucose 110 H POC Glucose 119 H Lactic Acid Calcium Ionized Calcium Phosphorus Magnesium Direct Bilirubin AST ALT Alkaline Phosphatase Lactate Dehydrogenase Troponin T C-Reactive Protein Total Protein Albumin Prealbumin Triglycerides Cholesterol LDL Cholesterol Direct HDL Cholesterol 25-OH Vitamin D Total PTH Intact Urine pH Urine WBC (Auto) Urine Creatinine Urine Total Protein Fluid Total Protein Vancomycin Trough Rheumatoid Factor Complement C4 Miscellaneous Test Crossmatch 01/03/17 01/03/17 01/04/17 18:13 23:40 05:57 WBC RBC Hgb Hct MCV MCH MCHC RDW Plt Count Lymph % (Auto) [place] % (Auto) Lymph # [place] # Baso # Seg Neutrophils % Seg Neuts % (Manual) Lymphocytes % (Manual) Monocytes % (Manual) Eosinophils % (Manual) Basophils % (Manual) Nucleated RBC % Seg Neutrophils # Seg Neutrophils # Man Lymphocytes # (Manual) Monocytes # (Manual) Eosinophils # (Manual) Basophils # (Manual) PT INR Fibrinogen dRVVT Confirm Interp Factor V Activity POC ABG pH POC ABG pCO2 POC ABG pO2 ABG pO2 ABG HCO3 ABG Base Excess ABG Hemoglobin Oxyhemoglobin Sodium Potassium Chloride Carbon Dioxide BUN Creatinine Glucose POC Glucose 107 H 129 H 111 H Lactic Acid Calcium Ionized Calcium Phosphorus Magnesium Direct Bilirubin AST ALT Alkaline Phosphatase Lactate Dehydrogenase Troponin T C-Reactive Protein Total Protein Albumin Prealbumin Triglycerides Cholesterol LDL Cholesterol Direct HDL Cholesterol 25-OH Vitamin D Total PTH Intact Urine pH Urine WBC (Auto) Urine Creatinine Urine Total Protein Fluid Total Protein Vancomycin Trough Rheumatoid Factor Complement C4 Miscellaneous Test Crossmatch 01/04/17 01/04/17 01/04/17 12:46 15:27 17:11 WBC RBC Hgb Hct MCV MCH MCHC RDW Plt Count Lymph % (Auto) [place] % (Auto) Lymph # [place] # Baso # Seg Neutrophils % Seg Neuts % (Manual) Lymphocytes % (Manual) Monocytes % (Manual) Eosinophils % (Manual) Basophils % (Manual) Nucleated RBC % Seg Neutrophils # Seg Neutrophils # Man Lymphocytes # (Manual) Monocytes # (Manual) Eosinophils # (Manual) Basophils # (Manual) PT INR Fibrinogen dRVVT Confirm Interp Factor V Activity POC ABG pH POC ABG pCO2 POC ABG pO2 ABG pO2 ABG HCO3 ABG Base Excess ABG Hemoglobin Oxyhemoglobin Sodium Potassium Chloride Carbon Dioxide BUN 43 H Creatinine Glucose 124 H POC Glucose 159 H 125 H Lactic Acid Calcium 8.0 L Ionized Calcium Phosphorus 2.10 L Magnesium Direct Bilirubin AST ALT Alkaline Phosphatase Lactate Dehydrogenase Troponin T C-Reactive Protein Total Protein Albumin Prealbumin Triglycerides Cholesterol LDL Cholesterol Direct HDL Cholesterol 25-OH Vitamin D Total PTH Intact Urine pH Urine WBC (Auto) Urine Creatinine Urine Total Protein Fluid Total Protein Vancomycin Trough Rheumatoid Factor Complement C4 Miscellaneous Test Crossmatch 01/04/17 01/05/17 01/05/17 23:31 04:00 05:46 WBC RBC Hgb Hct MCV MCH MCHC RDW Plt Count Lymph % (Auto) [place] % (Auto) Lymph # [place] # Baso # Seg Neutrophils % Seg Neuts % (Manual) Lymphocytes % (Manual) Monocytes % (Manual) Eosinophils % (Manual) Basophils % (Manual) Nucleated RBC % Seg Neutrophils # Seg Neutrophils # Man Lymphocytes # (Manual) Monocytes # (Manual) Eosinophils # (Manual) Basophils # (Manual) PT INR Fibrinogen dRVVT Confirm Interp Factor V Activity POC ABG pH POC ABG pCO2 POC ABG pO2 ABG pO2 ABG HCO3 ABG Base Excess ABG Hemoglobin Oxyhemoglobin Sodium Potassium Chloride Carbon Dioxide BUN 52 H Creatinine 1.3 H Glucose 113 H POC Glucose 123 H 118 H Lactic Acid Calcium Ionized Calcium Phosphorus 2.40 L Magnesium Direct Bilirubin AST ALT Alkaline Phosphatase Lactate Dehydrogenase Troponin T C-Reactive Protein Total Protein Albumin Prealbumin Triglycerides Cholesterol LDL Cholesterol Direct HDL Cholesterol 25-OH Vitamin D Total PTH Intact Urine pH Urine WBC (Auto) Urine Creatinine Urine Total Protein Fluid Total Protein Vancomycin Trough Rheumatoid Factor Complement C4 Miscellaneous Test Crossmatch 01/05/17 01/05/17 01/05/17 11:41 17:48 23:27 WBC RBC Hgb Hct MCV MCH MCHC RDW Plt Count Lymph % (Auto) [place] % (Auto) Lymph # [place] # Baso # Seg Neutrophils % Seg Neuts % (Manual) Lymphocytes % (Manual) Monocytes % (Manual) Eosinophils % (Manual) Basophils % (Manual) Nucleated RBC % Seg Neutrophils # Seg Neutrophils # Man Lymphocytes # (Manual) Monocytes # (Manual) Eosinophils # (Manual) Basophils # (Manual) PT INR Fibrinogen dRVVT Confirm Interp Factor V Activity POC ABG pH POC ABG pCO2 POC ABG pO2 ABG pO2 ABG HCO3 ABG Base Excess ABG Hemoglobin Oxyhemoglobin Sodium Potassium Chloride Carbon Dioxide BUN Creatinine Glucose POC Glucose 163 H 142 H 155 H Lactic Acid Calcium Ionized Calcium Phosphorus Magnesium Direct Bilirubin AST ALT Alkaline Phosphatase Lactate Dehydrogenase Troponin T C-Reactive Protein Total Protein Albumin Prealbumin Triglycerides Cholesterol LDL Cholesterol Direct HDL Cholesterol 25-OH Vitamin D Total PTH Intact Urine pH Urine WBC (Auto) Urine Creatinine Urine Total Protein Fluid Total Protein Vancomycin Trough Rheumatoid Factor Complement C4 Miscellaneous Test Crossmatch 01/06/17 01/06/17 01/06/17 05:20 07:35 11:18 WBC RBC Hgb Hct MCV MCH MCHC RDW Plt Count Lymph % (Auto) [place] % (Auto) Lymph # [place] # Baso # Seg Neutrophils % Seg Neuts % (Manual) Lymphocytes % (Manual) Monocytes % (Manual) Eosinophils % (Manual) Basophils % (Manual) Nucleated RBC % Seg Neutrophils # Seg Neutrophils # Man Lymphocytes # (Manual) Monocytes # (Manual) Eosinophils # (Manual) Basophils # (Manual) PT INR Fibrinogen dRVVT Confirm Interp Factor V Activity POC ABG pH POC ABG pCO2 POC ABG pO2 ABG pO2 ABG HCO3 ABG Base Excess ABG Hemoglobin Oxyhemoglobin Sodium Potassium Chloride Carbon Dioxide BUN 74 H Creatinine 1.6 H Glucose 135 H POC Glucose 108 H 149 H Lactic Acid Calcium Ionized Calcium Phosphorus Magnesium Direct Bilirubin AST ALT Alkaline Phosphatase Lactate Dehydrogenase Troponin T C-Reactive Protein Total Protein Albumin Prealbumin Triglycerides Cholesterol LDL Cholesterol Direct HDL Cholesterol 25-OH Vitamin D Total PTH Intact Urine pH Urine WBC (Auto) Urine Creatinine Urine Total Protein Fluid Total Protein Vancomycin Trough Rheumatoid Factor Complement C4 Miscellaneous Test Crossmatch 01/06/17 01/07/17 01/07/17 17:17 00:23 05:31 WBC RBC Hgb Hct MCV MCH MCHC RDW Plt Count Lymph % (Auto) [place] % (Auto) Lymph # [place] # Baso # Seg Neutrophils % Seg Neuts % (Manual) Lymphocytes % (Manual) Monocytes % (Manual) Eosinophils % (Manual) Basophils % (Manual) Nucleated RBC % Seg Neutrophils # Seg Neutrophils # Man Lymphocytes # (Manual) Monocytes # (Manual) Eosinophils # (Manual) Basophils # (Manual) PT INR Fibrinogen dRVVT Confirm Interp Factor V Activity POC ABG pH POC ABG pCO2 POC ABG pO2 ABG pO2 ABG HCO3 ABG Base Excess ABG Hemoglobin Oxyhemoglobin Sodium Potassium Chloride Carbon Dioxide BUN Creatinine Glucose POC Glucose 146 H 165 H 153 H Lactic Acid Calcium Ionized Calcium Phosphorus Magnesium Direct Bilirubin AST ALT Alkaline Phosphatase Lactate Dehydrogenase Troponin T C-Reactive Protein Total Protein Albumin Prealbumin Triglycerides Cholesterol LDL Cholesterol Direct HDL Cholesterol 25-OH Vitamin D Total PTH Intact Urine pH Urine WBC (Auto) Urine Creatinine Urine Total Protein Fluid Total Protein Vancomycin Trough Rheumatoid Factor Complement C4 Miscellaneous Test Crossmatch 01/07/17 01/07/17 01/07/17 06:00 11:39 17:11 WBC RBC Hgb Hct MCV MCH MCHC RDW Plt Count Lymph % (Auto) [place] % (Auto) Lymph # [place] # Baso # Seg Neutrophils % Seg Neuts % (Manual) Lymphocytes % (Manual) Monocytes % (Manual) Eosinophils % (Manual) Basophils % (Manual) Nucleated RBC % Seg Neutrophils # Seg Neutrophils # Man Lymphocytes # (Manual) Monocytes # (Manual) Eosinophils # (Manual) Basophils # (Manual) PT INR Fibrinogen dRVVT Confirm Interp Factor V Activity POC ABG pH POC ABG pCO2 POC ABG pO2 ABG pO2 ABG HCO3 ABG Base Excess ABG Hemoglobin Oxyhemoglobin Sodium Potassium Chloride Carbon Dioxide BUN 42 H Creatinine Glucose 175 H POC Glucose 163 H 163 H Lactic Acid Calcium Ionized Calcium Phosphorus 2.40 L D Magnesium Direct Bilirubin AST ALT Alkaline Phosphatase Lactate Dehydrogenase Troponin T C-Reactive Protein Total Protein Albumin Prealbumin Triglycerides Cholesterol LDL Cholesterol Direct HDL Cholesterol 25-OH Vitamin D Total PTH Intact Urine pH Urine WBC (Auto) Urine Creatinine Urine Total Protein Fluid Total Protein Vancomycin Trough Rheumatoid Factor Complement C4 Miscellaneous Test Crossmatch 01/07/17 01/08/17 01/08/17 23:40 05:00 05:00 WBC 27.4 H RBC 2.27 L Hgb 6.1 L Hct 20.4 L MCV MCH 27 L MCHC RDW 17.8 H Plt Count Lymph % (Auto) [place] % (Auto) Lymph # [place] # Baso # Seg Neutrophils % Seg Neuts % (Manual) Lymphocytes % (Manual) Monocytes % (Manual) Eosinophils % (Manual) Basophils % (Manual) Nucleated RBC % Seg Neutrophils # Seg Neutrophils # Man Lymphocytes # (Manual) Monocytes # (Manual) Eosinophils # (Manual) Basophils # (Manual) PT INR Fibrinogen dRVVT Confirm Interp Factor V Activity POC ABG pH POC ABG pCO2 POC ABG pO2 ABG pO2 ABG HCO3 ABG Base Excess ABG Hemoglobin Oxyhemoglobin Sodium Potassium Chloride Carbon Dioxide 16 L D BUN 62 H Creatinine 1.6 H D Glucose 103 H POC Glucose 135 H Lactic Acid Calcium Ionized Calcium Phosphorus Magnesium Direct Bilirubin AST ALT Alkaline Phosphatase Lactate Dehydrogenase Troponin T C-Reactive Protein Total Protein Albumin Prealbumin Triglycerides Cholesterol LDL Cholesterol Direct HDL Cholesterol 25-OH Vitamin D Total PTH Intact Urine pH Urine WBC (Auto) Urine Creatinine Urine Total Protein Fluid Total Protein Vancomycin Trough Rheumatoid Factor Complement C4 Miscellaneous Test Crossmatch 01/08/17 01/08/17 01/08/17 05:25 10:37 10:37 WBC RBC Hgb Hct MCV MCH MCHC RDW Plt Count Lymph % (Auto) [place] % (Auto) Lymph # [place] # Baso # Seg Neutrophils % Seg Neuts % (Manual) Lymphocytes % (Manual) Monocytes % (Manual) Eosinophils % (Manual) Basophils % (Manual) Nucleated RBC % Seg Neutrophils # Seg Neutrophils # Man Lymphocytes # (Manual) Monocytes # (Manual) Eosinophils # (Manual) Basophils # (Manual) PT INR Fibrinogen dRVVT Confirm Interp Factor V Activity POC ABG pH POC ABG pCO2 POC ABG pO2 ABG pO2 ABG HCO3 ABG Base Excess ABG Hemoglobin Oxyhemoglobin Sodium Potassium Chloride Carbon Dioxide BUN Creatinine Glucose POC Glucose 106 H Lactic Acid Calcium Ionized Calcium Phosphorus Magnesium Direct Bilirubin AST ALT Alkaline Phosphatase Lactate Dehydrogenase Troponin T C-Reactive Protein 24.40 H Total Protein Albumin Prealbumin Triglycerides Cholesterol LDL Cholesterol Direct HDL Cholesterol 25-OH Vitamin D Total PTH Intact Urine pH Urine WBC (Auto) Urine Creatinine Urine Total Protein Fluid Total Protein Vancomycin Trough Rheumatoid Factor Complement C4 Miscellaneous Test Crossmatch See Detail 01/08/17 01/08/17 01/08/17 10:37 11:33 15:15 WBC RBC Hgb Hct MCV MCH MCHC RDW Plt Count Lymph % (Auto) [place] % (Auto) Lymph # [place] # Baso # Seg Neutrophils % Seg Neuts % (Manual) Lymphocytes % (Manual) Monocytes % (Manual) Eosinophils % (Manual) Basophils % (Manual) Nucleated RBC % Seg Neutrophils # Seg Neutrophils # Man Lymphocytes # (Manual) Monocytes # (Manual) Eosinophils # (Manual) Basophils # (Manual) PT INR Fibrinogen dRVVT Confirm Interp Factor V Activity POC ABG pH POC ABG pCO2 POC ABG pO2 ABG pO2 ABG HCO3 ABG Base Excess ABG Hemoglobin Oxyhemoglobin Sodium Potassium Chloride Carbon Dioxide BUN Creatinine Glucose POC Glucose 157 H Lactic Acid 9.70 H* 9.10 H* Calcium Ionized Calcium Phosphorus Magnesium Direct Bilirubin AST ALT Alkaline Phosphatase Lactate Dehydrogenase Troponin T C-Reactive Protein Total Protein Albumin Prealbumin Triglycerides Cholesterol LDL Cholesterol Direct HDL Cholesterol 25-OH Vitamin D Total PTH Intact Urine pH Urine WBC (Auto) Urine Creatinine Urine Total Protein Fluid Total Protein Vancomycin Trough Rheumatoid Factor Complement C4 Miscellaneous Test Crossmatch 01/08/17 01/08/17 01/09/17 17:19 23:12 04:40 WBC RBC Hgb Hct MCV MCH MCHC RDW Plt Count Lymph % (Auto) [place] % (Auto) Lymph # [place] # Baso # Seg Neutrophils % Seg Neuts % (Manual) Lymphocytes % (Manual) Monocytes % (Manual) Eosinophils % (Manual) Basophils % (Manual) Nucleated RBC % Seg Neutrophils # Seg Neutrophils # Man Lymphocytes # (Manual) Monocytes # (Manual) Eosinophils # (Manual) Basophils # (Manual) PT INR Fibrinogen dRVVT Confirm Interp Factor V Activity POC ABG pH POC ABG pCO2 POC ABG pO2 ABG pO2 ABG HCO3 ABG Base Excess ABG Hemoglobin Oxyhemoglobin Sodium 147 H Potassium Chloride Carbon Dioxide BUN 82 H Creatinine 1.8 H Glucose 137 H POC Glucose 164 H 157 H Lactic Acid Calcium Ionized Calcium Phosphorus Magnesium Direct Bilirubin AST ALT Alkaline Phosphatase Lactate Dehydrogenase Troponin T C-Reactive Protein Total Protein Albumin Prealbumin Triglycerides Cholesterol LDL Cholesterol Direct HDL Cholesterol 25-OH Vitamin D Total PTH Intact Urine pH Urine WBC (Auto) Urine Creatinine Urine Total Protein Fluid Total Protein Vancomycin Trough Rheumatoid Factor Complement C4 Miscellaneous Test Crossmatch 01/09/17 01/09/17 01/09/17 05:42 08:22 10:57 WBC RBC Hgb Hct MCV MCH MCHC RDW Plt Count Lymph % (Auto) [place] % (Auto) Lymph # [place] # Baso # Seg Neutrophils % Seg Neuts % (Manual) Lymphocytes % (Manual) Monocytes % (Manual) Eosinophils % (Manual) Basophils % (Manual) Nucleated RBC % Seg Neutrophils # Seg Neutrophils # Man Lymphocytes # (Manual) Monocytes # (Manual) Eosinophils # (Manual) Basophils # (Manual) PT INR Fibrinogen dRVVT Confirm Interp Factor V Activity POC ABG pH POC ABG pCO2 POC ABG pO2 ABG pO2 ABG HCO3 ABG Base Excess ABG Hemoglobin Oxyhemoglobin Sodium Potassium Chloride Carbon Dioxide BUN Creatinine Glucose POC Glucose 156 H 122 H Lactic Acid 2.30 H* Calcium Ionized Calcium Phosphorus Magnesium Direct Bilirubin AST ALT Alkaline Phosphatase Lactate Dehydrogenase Troponin T C-Reactive Protein Total Protein Albumin Prealbumin Triglycerides Cholesterol LDL Cholesterol Direct HDL Cholesterol 25-OH Vitamin D Total PTH Intact Urine pH Urine WBC (Auto) Urine Creatinine Urine Total Protein Fluid Total Protein Vancomycin Trough Rheumatoid Factor Complement C4 Miscellaneous Test Crossmatch 01/09/17 01/09/17 01/09/17 13:30 17:14 18:45 WBC RBC Hgb Hct MCV MCH MCHC RDW Plt Count Lymph % (Auto) [place] % (Auto) Lymph # [place] # Baso # Seg Neutrophils % Seg Neuts % (Manual) Lymphocytes % (Manual) Monocytes % (Manual) Eosinophils % (Manual) Basophils % (Manual) Nucleated RBC % Seg Neutrophils # Seg Neutrophils # Man Lymphocytes # (Manual) Monocytes # (Manual) Eosinophils # (Manual) Basophils # (Manual) PT INR Fibrinogen dRVVT Confirm Interp Factor V Activity POC ABG pH POC ABG pCO2 POC ABG pO2 ABG pO2 ABG HCO3 ABG Base Excess ABG Hemoglobin Oxyhemoglobin Sodium Potassium Chloride Carbon Dioxide BUN Creatinine Glucose POC Glucose 127 H Lactic Acid Calcium Ionized Calcium Phosphorus Magnesium Direct Bilirubin AST ALT Alkaline Phosphatase Lactate Dehydrogenase Troponin T C-Reactive Protein 24.70 H Total Protein Albumin Prealbumin Triglycerides Cholesterol LDL Cholesterol Direct HDL Cholesterol 25-OH Vitamin D Total PTH Intact Urine pH Urine WBC (Auto) Urine Creatinine Urine Total Protein Fluid Total Protein Vancomycin Trough Rheumatoid Factor Complement C4 Miscellaneous Test Flexitest 1 H Crossmatch 01/10/17 01/10/17 01/10/17 01:21 04:00 04:00 WBC 18.1 H RBC 3.22 L Hgb 8.8 L Hct 27.0 L D MCV MCH 27 L MCHC RDW 17.0 H Plt Count Lymph % (Auto) [place] % (Auto) Lymph # [place] # Baso # Seg Neutrophils % Seg Neuts % (Manual) Lymphocytes % (Manual) Monocytes % (Manual) Eosinophils % (Manual) Basophils % (Manual) Nucleated RBC % Seg Neutrophils # Seg Neutrophils # Man Lymphocytes # (Manual) Monocytes # (Manual) Eosinophils # (Manual) Basophils # (Manual) PT INR Fibrinogen dRVVT Confirm Interp Factor V Activity POC ABG pH POC ABG pCO2 POC ABG pO2 ABG pO2 ABG HCO3 ABG Base Excess ABG Hemoglobin Oxyhemoglobin Sodium Potassium Chloride Carbon Dioxide BUN 59 H Creatinine 1.3 H Glucose 122 H POC Glucose 160 H Lactic Acid Calcium Ionized Calcium Phosphorus Magnesium Direct Bilirubin AST ALT Alkaline Phosphatase Lactate Dehydrogenase Troponin T C-Reactive Protein Total Protein Albumin Prealbumin Triglycerides Cholesterol LDL Cholesterol Direct HDL Cholesterol 25-OH Vitamin D Total PTH Intact Urine pH Urine WBC (Auto) Urine Creatinine Urine Total Protein Fluid Total Protein Vancomycin Trough Rheumatoid Factor Complement C4 Miscellaneous Test Crossmatch 01/10/17 01/10/17 01/10/17 05:36 12:14 17:55 WBC RBC Hgb Hct MCV MCH MCHC RDW Plt Count Lymph % (Auto) [place] % (Auto) Lymph # [place] # Baso # Seg Neutrophils % Seg Neuts % (Manual) Lymphocytes % (Manual) Monocytes % (Manual) Eosinophils % (Manual) Basophils % (Manual) Nucleated RBC % Seg Neutrophils # Seg Neutrophils # Man Lymphocytes # (Manual) Monocytes # (Manual) Eosinophils # (Manual) Basophils # (Manual) PT INR Fibrinogen dRVVT Confirm Interp Factor V Activity POC ABG pH POC ABG pCO2 POC ABG pO2 ABG pO2 ABG HCO3 ABG Base Excess ABG Hemoglobin Oxyhemoglobin Sodium Potassium Chloride Carbon Dioxide BUN Creatinine Glucose POC Glucose 163 H 120 H 144 H Lactic Acid Calcium Ionized Calcium Phosphorus Magnesium Direct Bilirubin AST ALT Alkaline Phosphatase Lactate Dehydrogenase Troponin T C-Reactive Protein Total Protein Albumin Prealbumin Triglycerides Cholesterol LDL Cholesterol Direct HDL Cholesterol 25-OH Vitamin D Total PTH Intact Urine pH Urine WBC (Auto) Urine Creatinine Urine Total Protein Fluid Total Protein Vancomycin Trough Rheumatoid Factor Complement C4 Miscellaneous Test Crossmatch 01/11/17 01/11/17 01/11/17 00:09 04:00 04:00 WBC 15.8 H RBC 3.04 L Hgb 8.2 L Hct 25.5 L MCV MCH 27 L MCHC RDW 17.3 H Plt Count Lymph % (Auto) [place] % (Auto) Lymph # [place] # Baso # Seg Neutrophils % Seg Neuts % (Manual) Lymphocytes % (Manual) Monocytes % (Manual) Eosinophils % (Manual) Basophils % (Manual) Nucleated RBC % Seg Neutrophils # Seg Neutrophils # Man Lymphocytes # (Manual) Monocytes # (Manual) Eosinophils # (Manual) Basophils # (Manual) PT INR Fibrinogen dRVVT Confirm Interp Factor V Activity POC ABG pH POC ABG pCO2 POC ABG pO2 ABG pO2 ABG HCO3 ABG Base Excess ABG Hemoglobin Oxyhemoglobin Sodium Potassium Chloride Carbon Dioxide BUN 78 H Creatinine 1.6 H Glucose 109 H POC Glucose 122 H Lactic Acid Calcium Ionized Calcium Phosphorus Magnesium Direct Bilirubin AST ALT Alkaline Phosphatase Lactate Dehydrogenase Troponin T C-Reactive Protein Total Protein Albumin Prealbumin Triglycerides Cholesterol LDL Cholesterol Direct HDL Cholesterol 25-OH Vitamin D Total PTH Intact Urine pH Urine WBC (Auto) Urine Creatinine Urine Total Protein Fluid Total Protein Vancomycin Trough Rheumatoid Factor Complement C4 Miscellaneous Test Crossmatch 01/11/17 01/11/17 01/11/17 12:46 18:23 23:42 WBC RBC Hgb Hct MCV MCH MCHC RDW Plt Count Lymph % (Auto) [place] % (Auto) Lymph # [place] # Baso # Seg Neutrophils % Seg Neuts % (Manual) Lymphocytes % (Manual) Monocytes % (Manual) Eosinophils % (Manual) Basophils % (Manual) Nucleated RBC % Seg Neutrophils # Seg Neutrophils # Man Lymphocytes # (Manual) Monocytes # (Manual) Eosinophils # (Manual) Basophils # (Manual) PT INR Fibrinogen dRVVT Confirm Interp Factor V Activity POC ABG pH POC ABG pCO2 POC ABG pO2 ABG pO2 ABG HCO3 ABG Base Excess ABG Hemoglobin Oxyhemoglobin Sodium Potassium Chloride Carbon Dioxide BUN Creatinine Glucose POC Glucose 148 H 125 H 124 H Lactic Acid Calcium Ionized Calcium Phosphorus Magnesium Direct Bilirubin AST ALT Alkaline Phosphatase Lactate Dehydrogenase Troponin T C-Reactive Protein Total Protein Albumin Prealbumin Triglycerides Cholesterol LDL Cholesterol Direct HDL Cholesterol 25-OH Vitamin D Total PTH Intact Urine pH Urine WBC (Auto) Urine Creatinine Urine Total Protein Fluid Total Protein Vancomycin Trough Rheumatoid Factor Complement C4 Miscellaneous Test Crossmatch 01/12/17 01/12/17 01/12/17 04:30 04:30 05:47 WBC 15.8 H RBC 3.31 L Hgb 8.9 L Hct 27.9 L MCV MCH 27 L MCHC RDW 17.4 H Plt Count Lymph % (Auto) [place] % (Auto) Lymph # [place] # Baso # Seg Neutrophils % Seg Neuts % (Manual) Lymphocytes % (Manual) Monocytes % (Manual) Eosinophils % (Manual) Basophils % (Manual) Nucleated RBC % Seg Neutrophils # Seg Neutrophils # Man Lymphocytes # (Manual) Monocytes # (Manual) Eosinophils # (Manual) Basophils # (Manual) PT INR Fibrinogen dRVVT Confirm Interp Factor V Activity POC ABG pH POC ABG pCO2 POC ABG pO2 ABG pO2 ABG HCO3 ABG Base Excess ABG Hemoglobin Oxyhemoglobin Sodium Potassium Chloride Carbon Dioxide BUN 57 H Creatinine Glucose 121 H POC Glucose 110 H Lactic Acid Calcium Ionized Calcium Phosphorus 2.10 L Magnesium Direct Bilirubin AST ALT Alkaline Phosphatase Lactate Dehydrogenase Troponin T C-Reactive Protein Total Protein Albumin Prealbumin Triglycerides Cholesterol LDL Cholesterol Direct HDL Cholesterol 25-OH Vitamin D Total PTH Intact Urine pH Urine WBC (Auto) Urine Creatinine Urine Total Protein Fluid Total Protein Vancomycin Trough Rheumatoid Factor Complement C4 Miscellaneous Test Crossmatch 01/12/17 01/12/17 01/12/17 11:35 17:45 23:14 WBC RBC Hgb Hct MCV MCH MCHC RDW Plt Count Lymph % (Auto) [place] % (Auto) Lymph # [place] # Baso # Seg Neutrophils % Seg Neuts % (Manual) Lymphocytes % (Manual) Monocytes % (Manual) Eosinophils % (Manual) Basophils % (Manual) Nucleated RBC % Seg Neutrophils # Seg Neutrophils # Man Lymphocytes # (Manual) Monocytes # (Manual) Eosinophils # (Manual) Basophils # (Manual) PT INR Fibrinogen dRVVT Confirm Interp Factor V Activity POC ABG pH POC ABG pCO2 POC ABG pO2 ABG pO2 ABG HCO3 ABG Base Excess ABG Hemoglobin Oxyhemoglobin Sodium Potassium Chloride Carbon Dioxide BUN Creatinine Glucose POC Glucose 146 H 117 H 123 H Lactic Acid Calcium Ionized Calcium Phosphorus Magnesium Direct Bilirubin AST ALT Alkaline Phosphatase Lactate Dehydrogenase Troponin T C-Reactive Protein Total Protein Albumin Prealbumin Triglycerides Cholesterol LDL Cholesterol Direct HDL Cholesterol 25-OH Vitamin D Total PTH Intact Urine pH Urine WBC (Auto) Urine Creatinine Urine Total Protein Fluid Total Protein Vancomycin Trough Rheumatoid Factor Complement C4 Miscellaneous Test Crossmatch 01/13/17 01/13/17 01/13/17 05:32 06:00 12:10 WBC RBC Hgb Hct MCV MCH MCHC RDW Plt Count Lymph % (Auto) [place] % (Auto) Lymph # [place] # Baso # Seg Neutrophils % Seg Neuts % (Manual) Lymphocytes % (Manual) Monocytes % (Manual) Eosinophils % (Manual) Basophils % (Manual) Nucleated RBC % Seg Neutrophils # Seg Neutrophils # Man Lymphocytes # (Manual) Monocytes # (Manual) Eosinophils # (Manual) Basophils # (Manual) PT INR Fibrinogen dRVVT Confirm Interp Factor V Activity POC ABG pH POC ABG pCO2 POC ABG pO2 ABG pO2 ABG HCO3 ABG Base Excess ABG Hemoglobin Oxyhemoglobin Sodium Potassium Chloride Carbon Dioxide BUN 80 H Creatinine 1.4 H Glucose 106 H POC Glucose 106 H Lactic Acid Calcium Ionized Calcium Phosphorus Magnesium Direct Bilirubin AST ALT Alkaline Phosphatase Lactate Dehydrogenase Troponin T C-Reactive Protein Total Protein Albumin Prealbumin Triglycerides Cholesterol LDL Cholesterol Direct HDL Cholesterol 25-OH Vitamin D Total PTH Intact Urine pH Urine WBC (Auto) Urine Creatinine Urine Total Protein Fluid Total Protein 3.0 L Vancomycin Trough Rheumatoid Factor Complement C4 Miscellaneous Test Crossmatch 01/13/17 01/13/17 01/13/17 12:17 15:50 17:30 WBC RBC Hgb Hct MCV MCH MCHC RDW Plt Count Lymph % (Auto) [place] % (Auto) Lymph # [place] # Baso # Seg Neutrophils % Seg Neuts % (Manual) Lymphocytes % (Manual) Monocytes % (Manual) Eosinophils % (Manual) Basophils % (Manual) Nucleated RBC % Seg Neutrophils # Seg Neutrophils # Man Lymphocytes # (Manual) Monocytes # (Manual) Eosinophils # (Manual) Basophils # (Manual) PT 15.4 H INR 1.16 H Fibrinogen dRVVT Confirm Interp Factor V Activity POC ABG pH POC ABG pCO2 POC ABG pO2 ABG pO2 ABG HCO3 ABG Base Excess ABG Hemoglobin Oxyhemoglobin Sodium Potassium Chloride Carbon Dioxide BUN Creatinine Glucose POC Glucose 168 H 110 H Lactic Acid Calcium Ionized Calcium Phosphorus Magnesium Direct Bilirubin AST ALT Alkaline Phosphatase Lactate Dehydrogenase Troponin T C-Reactive Protein Total Protein Albumin Prealbumin Triglycerides Cholesterol LDL Cholesterol Direct HDL Cholesterol 25-OH Vitamin D Total PTH Intact Urine pH Urine WBC (Auto) Urine Creatinine Urine Total Protein Fluid Total Protein Vancomycin Trough Rheumatoid Factor Complement C4 Miscellaneous Test Crossmatch 01/13/17 01/14/17 01/14/17 23:42 05:24 05:30 WBC RBC Hgb Hct MCV MCH MCHC RDW Plt Count Lymph % (Auto) [place] % (Auto) Lymph # [place] # Baso # Seg Neutrophils % Seg Neuts % (Manual) Lymphocytes % (Manual) Monocytes % (Manual) Eosinophils % (Manual) Basophils % (Manual) Nucleated RBC % Seg Neutrophils # Seg Neutrophils # Man Lymphocytes # (Manual) Monocytes # (Manual) Eosinophils # (Manual) Basophils # (Manual) PT INR Fibrinogen dRVVT Confirm Interp Factor V Activity POC ABG pH POC ABG pCO2 POC ABG pO2 ABG pO2 ABG HCO3 ABG Base Excess ABG Hemoglobin Oxyhemoglobin Sodium Potassium Chloride Carbon Dioxide BUN 58 H Creatinine Glucose 114 H POC Glucose 155 H 121 H Lactic Acid Calcium Ionized Calcium Phosphorus Magnesium Direct Bilirubin AST ALT Alkaline Phosphatase Lactate Dehydrogenase Troponin T C-Reactive Protein Total Protein Albumin Prealbumin Triglycerides Cholesterol LDL Cholesterol Direct HDL Cholesterol 25-OH Vitamin D Total PTH Intact Urine pH Urine WBC (Auto) Urine Creatinine Urine Total Protein Fluid Total Protein Vancomycin Trough Rheumatoid Factor Complement C4 Miscellaneous Test Crossmatch 01/14/17 01/14/17 01/15/17 12:48 17:36 00:15 WBC RBC Hgb Hct MCV MCH MCHC RDW Plt Count Lymph % (Auto) [place] % (Auto) Lymph # [place] # Baso # Seg Neutrophils % Seg Neuts % (Manual) Lymphocytes % (Manual) Monocytes % (Manual) Eosinophils % (Manual) Basophils % (Manual) Nucleated RBC % Seg Neutrophils # Seg Neutrophils # Man Lymphocytes # (Manual) Monocytes # (Manual) Eosinophils # (Manual) Basophils # (Manual) PT INR Fibrinogen dRVVT Confirm Interp Factor V Activity POC ABG pH POC ABG pCO2 POC ABG pO2 ABG pO2 ABG HCO3 ABG Base Excess ABG Hemoglobin Oxyhemoglobin Sodium Potassium Chloride Carbon Dioxide BUN Creatinine Glucose POC Glucose 130 H 135 H 132 H Lactic Acid Calcium Ionized Calcium Phosphorus Magnesium Direct Bilirubin AST ALT Alkaline Phosphatase Lactate Dehydrogenase Troponin T C-Reactive Protein Total Protein Albumin Prealbumin Triglycerides Cholesterol LDL Cholesterol Direct HDL Cholesterol 25-OH Vitamin D Total PTH Intact Urine pH Urine WBC (Auto) Urine Creatinine Urine Total Protein Fluid Total Protein Vancomycin Trough Rheumatoid Factor Complement C4 Miscellaneous Test Crossmatch 01/15/17 01/15/17 01/15/17 05:01 11:55 12:45 WBC 16.2 H RBC 3.00 L Hgb 8.1 L Hct 25.4 L MCV MCH 27 L MCHC RDW 17.6 H Plt Count Lymph % (Auto) 11.7 L [place] % (Auto) 7.8 H Lymph # [place] # 1.3 H Baso # Seg Neutrophils % 80.1 H Seg Neuts % (Manual) Lymphocytes % (Manual) Monocytes % (Manual) Eosinophils % (Manual) Basophils % (Manual) Nucleated RBC % Seg Neutrophils # 13.0 H Seg Neutrophils # Man Lymphocytes # (Manual) Monocytes # (Manual) Eosinophils # (Manual) Basophils # (Manual) PT INR Fibrinogen dRVVT Confirm Interp Factor V Activity POC ABG pH POC ABG pCO2 POC ABG pO2 ABG pO2 ABG HCO3 ABG Base Excess ABG Hemoglobin Oxyhemoglobin Sodium Potassium Chloride Carbon Dioxide BUN Creatinine Glucose POC Glucose 126 H 125 H Lactic Acid Calcium Ionized Calcium Phosphorus Magnesium Direct Bilirubin AST ALT Alkaline Phosphatase Lactate Dehydrogenase Troponin T C-Reactive Protein Total Protein Albumin Prealbumin Triglycerides Cholesterol LDL Cholesterol Direct HDL Cholesterol 25-OH Vitamin D Total PTH Intact Urine pH Urine WBC (Auto) Urine Creatinine Urine Total Protein Fluid Total Protein Vancomycin Trough Rheumatoid Factor Complement C4 Miscellaneous Test Crossmatch 01/15/17 01/15/17 01/15/17 12:45 17:31 23:39 WBC RBC Hgb Hct MCV MCH MCHC RDW Plt Count Lymph % (Auto) [place] % (Auto) Lymph # [place] # Baso # Seg Neutrophils % Seg Neuts % (Manual) Lymphocytes % (Manual) Monocytes % (Manual) Eosinophils % (Manual) Basophils % (Manual) Nucleated RBC % Seg Neutrophils # Seg Neutrophils # Man Lymphocytes # (Manual) Monocytes # (Manual) Eosinophils # (Manual) Basophils # (Manual) PT INR Fibrinogen dRVVT Confirm Interp Factor V Activity POC ABG pH POC ABG pCO2 POC ABG pO2 ABG pO2 ABG HCO3 ABG Base Excess ABG Hemoglobin Oxyhemoglobin Sodium 136 L Potassium Chloride Carbon Dioxide BUN 87 H Creatinine 1.7 H Glucose 108 H POC Glucose 129 H 112 H Lactic Acid Calcium Ionized Calcium Phosphorus Magnesium Direct Bilirubin AST ALT Alkaline Phosphatase Lactate Dehydrogenase Troponin T C-Reactive Protein Total Protein Albumin Prealbumin Triglycerides Cholesterol LDL Cholesterol Direct HDL Cholesterol 25-OH Vitamin D Total PTH Intact Urine pH Urine WBC (Auto) Urine Creatinine Urine Total Protein Fluid Total Protein Vancomycin Trough Rheumatoid Factor Complement C4 Miscellaneous Test Crossmatch 01/16/17 01/16/17 01/16/17 05:23 11:42 12:32 WBC RBC Hgb Hct MCV MCH MCHC RDW Plt Count Lymph % (Auto) [place] % (Auto) Lymph # [place] # Baso # Seg Neutrophils % Seg Neuts % (Manual) Lymphocytes % (Manual) Monocytes % (Manual) Eosinophils % (Manual) Basophils % (Manual) Nucleated RBC % Seg Neutrophils # Seg Neutrophils # Man Lymphocytes # (Manual) Monocytes # (Manual) Eosinophils # (Manual) Basophils # (Manual) PT INR Fibrinogen dRVVT Confirm Interp Factor V Activity POC ABG pH 7.499 H POC ABG pCO2 30.9 L POC ABG pO2 51 L ABG pO2 ABG HCO3 ABG Base Excess ABG Hemoglobin Oxyhemoglobin Sodium Potassium Chloride Carbon Dioxide BUN Creatinine Glucose POC Glucose 118 H 133 H Lactic Acid Calcium Ionized Calcium Phosphorus Magnesium Direct Bilirubin AST ALT Alkaline Phosphatase Lactate Dehydrogenase Troponin T C-Reactive Protein Total Protein Albumin Prealbumin Triglycerides Cholesterol LDL Cholesterol Direct HDL Cholesterol 25-OH Vitamin D Total PTH Intact Urine pH Urine WBC (Auto) Urine Creatinine Urine Total Protein Fluid Total Protein Vancomycin Trough Rheumatoid Factor Complement C4 Miscellaneous Test Crossmatch 01/16/17 01/16/17 01/16/17 17:52 23:57 Unknown WBC RBC Hgb Hct MCV MCH MCHC RDW Plt Count Lymph % (Auto) [place] % (Auto) Lymph # [place] # Baso # Seg Neutrophils % Seg Neuts % (Manual) Lymphocytes % (Manual) Monocytes % (Manual) Eosinophils % (Manual) Basophils % (Manual) Nucleated RBC % Seg Neutrophils # Seg Neutrophils # Man Lymphocytes # (Manual) Monocytes # (Manual) Eosinophils # (Manual) Basophils # (Manual) PT INR Fibrinogen dRVVT Confirm Interp Factor V Activity POC ABG pH POC ABG pCO2 POC ABG pO2 ABG pO2 ABG HCO3 ABG Base Excess ABG Hemoglobin Oxyhemoglobin Sodium 135 L Potassium Chloride Carbon Dioxide BUN 101 H Creatinine 1.8 H Glucose 117 H POC Glucose 130 H 143 H Lactic Acid Calcium Ionized Calcium Phosphorus 5.80 H Magnesium Direct Bilirubin AST ALT Alkaline Phosphatase Lactate Dehydrogenase Troponin T C-Reactive Protein Total Protein Albumin Prealbumin Triglycerides Cholesterol LDL Cholesterol Direct HDL Cholesterol 25-OH Vitamin D Total PTH Intact Urine pH Urine WBC (Auto) Urine Creatinine Urine Total Protein Fluid Total Protein Vancomycin Trough Rheumatoid Factor Complement C4 Miscellaneous Test Crossmatch 01/17/17 01/17/17 01/17/17 05:30 05:46 11:49 WBC RBC Hgb Hct MCV MCH MCHC RDW Plt Count Lymph % (Auto) [place] % (Auto) Lymph # [place] # Baso # Seg Neutrophils % Seg Neuts % (Manual) Lymphocytes % (Manual) Monocytes % (Manual) Eosinophils % (Manual) Basophils % (Manual) Nucleated RBC % Seg Neutrophils # Seg Neutrophils # Man Lymphocytes # (Manual) Monocytes # (Manual) Eosinophils # (Manual) Basophils # (Manual) PT INR Fibrinogen dRVVT Confirm Interp Factor V Activity POC ABG pH POC ABG pCO2 POC ABG pO2 ABG pO2 ABG HCO3 ABG Base Excess ABG Hemoglobin Oxyhemoglobin Sodium 134 L Potassium Chloride 95.8 L Carbon Dioxide BUN 66 H Creatinine 1.3 H Glucose 138 H POC Glucose 147 H 124 H Lactic Acid Calcium Ionized Calcium Phosphorus Magnesium Direct Bilirubin AST ALT Alkaline Phosphatase 254 H Lactate Dehydrogenase Troponin T C-Reactive Protein Total Protein Albumin 1.3 L Prealbumin Triglycerides Cholesterol LDL Cholesterol Direct HDL Cholesterol 25-OH Vitamin D Total PTH Intact Urine pH Urine WBC (Auto) Urine Creatinine Urine Total Protein Fluid Total Protein Vancomycin Trough Rheumatoid Factor Complement C4 Miscellaneous Test Crossmatch 01/17/17 01/17/17 01/18/17 17:30 23:41 05:15 WBC RBC Hgb Hct MCV MCH MCHC RDW Plt Count Lymph % (Auto) [place] % (Auto) Lymph # [place] # Baso # Seg Neutrophils % Seg Neuts % (Manual) Lymphocytes % (Manual) Monocytes % (Manual) Eosinophils % (Manual) Basophils % (Manual) Nucleated RBC % Seg Neutrophils # Seg Neutrophils # Man Lymphocytes # (Manual) Monocytes # (Manual) Eosinophils # (Manual) Basophils # (Manual) PT INR Fibrinogen dRVVT Confirm Interp Factor V Activity POC ABG pH POC ABG pCO2 POC ABG pO2 ABG pO2 ABG HCO3 ABG Base Excess ABG Hemoglobin Oxyhemoglobin Sodium Potassium Chloride Carbon Dioxide BUN 89 H Creatinine 1.7 H Glucose 118 H POC Glucose 137 H 119 H Lactic Acid Calcium Ionized Calcium Phosphorus Magnesium Direct Bilirubin AST ALT Alkaline Phosphatase Lactate Dehydrogenase Troponin T C-Reactive Protein Total Protein Albumin Prealbumin Triglycerides Cholesterol LDL Cholesterol Direct HDL Cholesterol 25-OH Vitamin D Total PTH Intact Urine pH Urine WBC (Auto) Urine Creatinine Urine Total Protein Fluid Total Protein Vancomycin Trough Rheumatoid Factor Complement C4 Miscellaneous Test Crossmatch 01/18/17 01/18/17 01/18/17 05:19 12:16 18:11 WBC RBC Hgb Hct MCV MCH MCHC RDW Plt Count Lymph % (Auto) [place] % (Auto) Lymph # [place] # Baso # Seg Neutrophils % Seg Neuts % (Manual) Lymphocytes % (Manual) Monocytes % (Manual) Eosinophils % (Manual) Basophils % (Manual) Nucleated RBC % Seg Neutrophils # Seg Neutrophils # Man Lymphocytes # (Manual) Monocytes # (Manual) Eosinophils # (Manual) Basophils # (Manual) PT INR Fibrinogen dRVVT Confirm Interp Factor V Activity POC ABG pH POC ABG pCO2 POC ABG pO2 ABG pO2 ABG HCO3 ABG Base Excess ABG Hemoglobin Oxyhemoglobin Sodium Potassium Chloride Carbon Dioxide BUN Creatinine Glucose POC Glucose 134 H 188 H 113 H Lactic Acid Calcium Ionized Calcium Phosphorus Magnesium Direct Bilirubin AST ALT Alkaline Phosphatase Lactate Dehydrogenase Troponin T C-Reactive Protein Total Protein Albumin Prealbumin Triglycerides Cholesterol LDL Cholesterol Direct HDL Cholesterol 25-OH Vitamin D Total PTH Intact Urine pH Urine WBC (Auto) Urine Creatinine Urine Total Protein Fluid Total Protein Vancomycin Trough Rheumatoid Factor Complement C4 Miscellaneous Test Crossmatch 01/19/17 01/19/17 01/19/17 00:00 05:30 05:36 WBC RBC Hgb Hct MCV MCH MCHC RDW Plt Count Lymph % (Auto) [place] % (Auto) Lymph # [place] # Baso # Seg Neutrophils % Seg Neuts % (Manual) Lymphocytes % (Manual) Monocytes % (Manual) Eosinophils % (Manual) Basophils % (Manual) Nucleated RBC % Seg Neutrophils # Seg Neutrophils # Man Lymphocytes # (Manual) Monocytes # (Manual) Eosinophils # (Manual) Basophils # (Manual) PT INR Fibrinogen dRVVT Confirm Interp Factor V Activity POC ABG pH POC ABG pCO2 POC ABG pO2 ABG pO2 ABG HCO3 ABG Base Excess ABG Hemoglobin Oxyhemoglobin Sodium Potassium Chloride Carbon Dioxide BUN 70 H Creatinine 1.5 H Glucose 121 H POC Glucose 137 H 155 H Lactic Acid Calcium Ionized Calcium Phosphorus 2.10 L D Magnesium Direct Bilirubin AST ALT Alkaline Phosphatase Lactate Dehydrogenase Troponin T C-Reactive Protein Total Protein Albumin Prealbumin Triglycerides Cholesterol LDL Cholesterol Direct HDL Cholesterol 25-OH Vitamin D Total PTH Intact Urine pH Urine WBC (Auto) Urine Creatinine Urine Total Protein Fluid Total Protein Vancomycin Trough Rheumatoid Factor Complement C4 Miscellaneous Test Crossmatch 01/19/17 01/19/17 01/19/17 11:59 15:32 17:57 WBC RBC Hgb Hct MCV MCH MCHC RDW Plt Count Lymph % (Auto) [place] % (Auto) Lymph # [place] # Baso # Seg Neutrophils % Seg Neuts % (Manual) Lymphocytes % (Manual) Monocytes % (Manual) Eosinophils % (Manual) Basophils % (Manual) Nucleated RBC % Seg Neutrophils # Seg Neutrophils # Man Lymphocytes # (Manual) Monocytes # (Manual) Eosinophils # (Manual) Basophils # (Manual) PT INR Fibrinogen dRVVT Confirm Interp Factor V Activity POC ABG pH POC ABG pCO2 33.1 L POC ABG pO2 76 L ABG pO2 ABG HCO3 ABG Base Excess ABG Hemoglobin Oxyhemoglobin Sodium Potassium Chloride Carbon Dioxide BUN Creatinine Glucose POC Glucose 156 H 129 H Lactic Acid Calcium Ionized Calcium Phosphorus Magnesium Direct Bilirubin AST ALT Alkaline Phosphatase Lactate Dehydrogenase Troponin T C-Reactive Protein Total Protein Albumin Prealbumin Triglycerides Cholesterol LDL Cholesterol Direct HDL Cholesterol 25-OH Vitamin D Total PTH Intact Urine pH Urine WBC (Auto) Urine Creatinine Urine Total Protein Fluid Total Protein Vancomycin Trough Rheumatoid Factor Complement C4 Miscellaneous Test Crossmatch 01/19/17 01/20/17 01/20/17 23:49 04:00 05:21 WBC RBC Hgb Hct MCV MCH MCHC RDW Plt Count Lymph % (Auto) [place] % (Auto) Lymph # [place] # Baso # Seg Neutrophils % Seg Neuts % (Manual) Lymphocytes % (Manual) Monocytes % (Manual) Eosinophils % (Manual) Basophils % (Manual) Nucleated RBC % Seg Neutrophils # Seg Neutrophils # Man Lymphocytes # (Manual) Monocytes # (Manual) Eosinophils # (Manual) Basophils # (Manual) PT INR Fibrinogen dRVVT Confirm Interp Factor V Activity POC ABG pH POC ABG pCO2 POC ABG pO2 ABG pO2 ABG HCO3 ABG Base Excess ABG Hemoglobin Oxyhemoglobin Sodium Potassium Chloride Carbon Dioxide BUN 96 H Creatinine 1.9 H Glucose 106 H POC Glucose 125 H 130 H Lactic Acid Calcium Ionized Calcium Phosphorus 2.40 L Magnesium Direct Bilirubin AST ALT Alkaline Phosphatase Lactate Dehydrogenase Troponin T C-Reactive Protein Total Protein Albumin Prealbumin Triglycerides Cholesterol LDL Cholesterol Direct HDL Cholesterol 25-OH Vitamin D Total PTH Intact Urine pH Urine WBC (Auto) Urine Creatinine Urine Total Protein Fluid Total Protein Vancomycin Trough Rheumatoid Factor Complement C4 Miscellaneous Test Crossmatch 01/20/17 01/20/17 01/20/17 11:58 12:17 17:26 WBC RBC Hgb Hct MCV MCH MCHC RDW Plt Count Lymph % (Auto) [place] % (Auto) Lymph # [place] # Baso # Seg Neutrophils % Seg Neuts % (Manual) Lymphocytes % (Manual) Monocytes % (Manual) Eosinophils % (Manual) Basophils % (Manual) Nucleated RBC % Seg Neutrophils # Seg Neutrophils # Man Lymphocytes # (Manual) Monocytes # (Manual) Eosinophils # (Manual) Basophils # (Manual) PT INR Fibrinogen dRVVT Confirm Interp Factor V Activity POC ABG pH POC ABG pCO2 POC ABG pO2 70 L ABG pO2 ABG HCO3 ABG Base Excess ABG Hemoglobin Oxyhemoglobin Sodium Potassium Chloride Carbon Dioxide BUN Creatinine Glucose POC Glucose 118 H 154 H Lactic Acid Calcium Ionized Calcium Phosphorus Magnesium Direct Bilirubin AST ALT Alkaline Phosphatase Lactate Dehydrogenase Troponin T C-Reactive Protein Total Protein Albumin Prealbumin Triglycerides Cholesterol LDL Cholesterol Direct HDL Cholesterol 25-OH Vitamin D Total PTH Intact Urine pH Urine WBC (Auto) Urine Creatinine Urine Total Protein Fluid Total Protein Vancomycin Trough Rheumatoid Factor Complement C4 Miscellaneous Test Crossmatch 01/21/17 01/21/17 01/21/17 04:00 04:56 11:46 WBC RBC Hgb Hct MCV MCH MCHC RDW Plt Count Lymph % (Auto) [place] % (Auto) Lymph # [place] # Baso # Seg Neutrophils % Seg Neuts % (Manual) Lymphocytes % (Manual) Monocytes % (Manual) Eosinophils % (Manual) Basophils % (Manual) Nucleated RBC % Seg Neutrophils # Seg Neutrophils # Man Lymphocytes # (Manual) Monocytes # (Manual) Eosinophils # (Manual) Basophils # (Manual) PT INR Fibrinogen dRVVT Confirm Interp Factor V Activity POC ABG pH POC ABG pCO2 POC ABG pO2 ABG pO2 ABG HCO3 ABG Base Excess ABG Hemoglobin Oxyhemoglobin Sodium Potassium 3.5 L Chloride 97.4 L Carbon Dioxide BUN 66 H Creatinine 1.4 H Glucose POC Glucose 116 H 106 H Lactic Acid Calcium Ionized Calcium Phosphorus 2.10 L Magnesium Direct Bilirubin AST ALT Alkaline Phosphatase Lactate Dehydrogenase Troponin T C-Reactive Protein Total Protein Albumin Prealbumin Triglycerides Cholesterol LDL Cholesterol Direct HDL Cholesterol 25-OH Vitamin D Total PTH Intact Urine pH Urine WBC (Auto) Urine Creatinine Urine Total Protein Fluid Total Protein Vancomycin Trough Rheumatoid Factor Complement C4 Miscellaneous Test Crossmatch 01/21/17 01/21/17 01/22/17 17:25 23:49 05:35 WBC RBC Hgb Hct MCV MCH MCHC RDW Plt Count Lymph % (Auto) [place] % (Auto) Lymph # [place] # Baso # Seg Neutrophils % Seg Neuts % (Manual) Lymphocytes % (Manual) Monocytes % (Manual) Eosinophils % (Manual) Basophils % (Manual) Nucleated RBC % Seg Neutrophils # Seg Neutrophils # Man Lymphocytes # (Manual) Monocytes # (Manual) Eosinophils # (Manual) Basophils # (Manual) PT INR Fibrinogen dRVVT Confirm Interp Factor V Activity POC ABG pH POC ABG pCO2 POC ABG pO2 ABG pO2 ABG HCO3 ABG Base Excess ABG Hemoglobin Oxyhemoglobin Sodium Potassium Chloride Carbon Dioxide BUN Creatinine Glucose POC Glucose 106 H 133 H 107 H Lactic Acid Calcium Ionized Calcium Phosphorus Magnesium Direct Bilirubin AST ALT Alkaline Phosphatase Lactate Dehydrogenase Troponin T C-Reactive Protein Total Protein Albumin Prealbumin Triglycerides Cholesterol LDL Cholesterol Direct HDL Cholesterol 25-OH Vitamin D Total PTH Intact Urine pH Urine WBC (Auto) Urine Creatinine Urine Total Protein Fluid Total Protein Vancomycin Trough Rheumatoid Factor Complement C4 Miscellaneous Test Crossmatch 01/22/17 01/22/17 01/22/17 07:20 07:20 11:31 WBC RBC 2.75 L Hgb 7.5 L Hct 22.7 L MCV MCH 27 L MCHC RDW 17.5 H Plt Count Lymph % (Auto) [place] % (Auto) Lymph # [place] # Baso # Seg Neutrophils % Seg Neuts % (Manual) Lymphocytes % (Manual) Monocytes % (Manual) Eosinophils % (Manual) Basophils % (Manual) Nucleated RBC % Seg Neutrophils # Seg Neutrophils # Man Lymphocytes # (Manual) Monocytes # (Manual) Eosinophils # (Manual) Basophils # (Manual) PT INR Fibrinogen dRVVT Confirm Interp Factor V Activity POC ABG pH POC ABG pCO2 POC ABG pO2 ABG pO2 ABG HCO3 ABG Base Excess ABG Hemoglobin Oxyhemoglobin Sodium Potassium 3.3 L Chloride Carbon Dioxide BUN 42 H Creatinine Glucose 105 H POC Glucose 124 H Lactic Acid Calcium Ionized Calcium Phosphorus 1.70 L Magnesium Direct Bilirubin AST ALT Alkaline Phosphatase Lactate Dehydrogenase Troponin T C-Reactive Protein Total Protein Albumin Prealbumin Triglycerides Cholesterol LDL Cholesterol Direct HDL Cholesterol 25-OH Vitamin D Total PTH Intact Urine pH Urine WBC (Auto) Urine Creatinine Urine Total Protein Fluid Total Protein Vancomycin Trough Rheumatoid Factor Complement C4 Miscellaneous Test Crossmatch 01/22/17 01/22/17 01/23/17 17:16 23:35 05:35 WBC RBC Hgb Hct MCV MCH MCHC RDW Plt Count Lymph % (Auto) [place] % (Auto) Lymph # [place] # Baso # Seg Neutrophils % Seg Neuts % (Manual) Lymphocytes % (Manual) Monocytes % (Manual) Eosinophils % (Manual) Basophils % (Manual) Nucleated RBC % Seg Neutrophils # Seg Neutrophils # Man Lymphocytes # (Manual) Monocytes # (Manual) Eosinophils # (Manual) Basophils # (Manual) PT INR Fibrinogen dRVVT Confirm Interp Factor V Activity POC ABG pH POC ABG pCO2 POC ABG pO2 ABG pO2 ABG HCO3 ABG Base Excess ABG Hemoglobin Oxyhemoglobin Sodium Potassium Chloride Carbon Dioxide BUN Creatinine Glucose POC Glucose 135 H 120 H 111 H Lactic Acid Calcium Ionized Calcium Phosphorus Magnesium Direct Bilirubin AST ALT Alkaline Phosphatase Lactate Dehydrogenase Troponin T C-Reactive Protein Total Protein Albumin Prealbumin Triglycerides Cholesterol LDL Cholesterol Direct HDL Cholesterol 25-OH Vitamin D Total PTH Intact Urine pH Urine WBC (Auto) Urine Creatinine Urine Total Protein Fluid Total Protein Vancomycin Trough Rheumatoid Factor Complement C4 Miscellaneous Test Crossmatch 01/23/17 01/23/17 01/23/17 06:10 17:27 23:44 WBC RBC Hgb Hct MCV MCH MCHC RDW Plt Count Lymph % (Auto) [place] % (Auto) Lymph # [place] # Baso # Seg Neutrophils % Seg Neuts % (Manual) Lymphocytes % (Manual) Monocytes % (Manual) Eosinophils % (Manual) Basophils % (Manual) Nucleated RBC % Seg Neutrophils # Seg Neutrophils # Man Lymphocytes # (Manual) Monocytes # (Manual) Eosinophils # (Manual) Basophils # (Manual) PT INR Fibrinogen dRVVT Confirm Interp Factor V Activity POC ABG pH POC ABG pCO2 POC ABG pO2 ABG pO2 ABG HCO3 ABG Base Excess ABG Hemoglobin Oxyhemoglobin Sodium Potassium 3.3 L Chloride Carbon Dioxide BUN 66 H Creatinine 1.3 H Glucose 109 H POC Glucose 120 H 115 H Lactic Acid Calcium Ionized Calcium Phosphorus 2.20 L D Magnesium Direct Bilirubin AST ALT Alkaline Phosphatase Lactate Dehydrogenase Troponin T C-Reactive Protein Total Protein Albumin Prealbumin Triglycerides Cholesterol LDL Cholesterol Direct HDL Cholesterol 25-OH Vitamin D Total PTH Intact Urine pH Urine WBC (Auto) Urine Creatinine Urine Total Protein Fluid Total Protein Vancomycin Trough Rheumatoid Factor Complement C4 Miscellaneous Test Crossmatch 01/24/17 01/24/17 01/24/17 05:19 05:50 12:19 WBC RBC Hgb Hct MCV MCH MCHC RDW Plt Count Lymph % (Auto) [place] % (Auto) Lymph # [place] # Baso # Seg Neutrophils % Seg Neuts % (Manual) Lymphocytes % (Manual) Monocytes % (Manual) Eosinophils % (Manual) Basophils % (Manual) Nucleated RBC % Seg Neutrophils # Seg Neutrophils # Man Lymphocytes # (Manual) Monocytes # (Manual) Eosinophils # (Manual) Basophils # (Manual) PT INR Fibrinogen dRVVT Confirm Interp Factor V Activity POC ABG pH POC ABG pCO2 POC ABG pO2 ABG pO2 ABG HCO3 ABG Base Excess ABG Hemoglobin Oxyhemoglobin Sodium Potassium Chloride Carbon Dioxide BUN 47 H Creatinine Glucose 117 H POC Glucose 126 H 119 H Lactic Acid Calcium Ionized Calcium Phosphorus 2.30 L Magnesium 1.60 L Direct Bilirubin AST ALT Alkaline Phosphatase Lactate Dehydrogenase Troponin T C-Reactive Protein Total Protein Albumin Prealbumin Triglycerides Cholesterol LDL Cholesterol Direct HDL Cholesterol 25-OH Vitamin D Total PTH Intact Urine pH Urine WBC (Auto) Urine Creatinine Urine Total Protein Fluid Total Protein Vancomycin Trough Rheumatoid Factor Complement C4 Miscellaneous Test Crossmatch 01/24/17 01/25/17 01/25/17 17:08 00:37 04:00 WBC RBC Hgb Hct MCV MCH MCHC RDW Plt Count Lymph % (Auto) [place] % (Auto) Lymph # [place] # Baso # Seg Neutrophils % Seg Neuts % (Manual) Lymphocytes % (Manual) Monocytes % (Manual) Eosinophils % (Manual) Basophils % (Manual) Nucleated RBC % Seg Neutrophils # Seg Neutrophils # Man Lymphocytes # (Manual) Monocytes # (Manual) Eosinophils # (Manual) Basophils # (Manual) PT INR Fibrinogen dRVVT Confirm Interp Factor V Activity POC ABG pH POC ABG pCO2 POC ABG pO2 ABG pO2 ABG HCO3 ABG Base Excess ABG Hemoglobin Oxyhemoglobin Sodium Potassium Chloride Carbon Dioxide BUN 72 H Creatinine 1.3 H Glucose POC Glucose 127 H 110 H Lactic Acid Calcium Ionized Calcium Phosphorus Magnesium Direct Bilirubin AST ALT Alkaline Phosphatase Lactate Dehydrogenase Troponin T C-Reactive Protein Total Protein Albumin Prealbumin Triglycerides Cholesterol LDL Cholesterol Direct HDL Cholesterol 25-OH Vitamin D Total PTH Intact Urine pH Urine WBC (Auto) Urine Creatinine Urine Total Protein Fluid Total Protein Vancomycin Trough Rheumatoid Factor Complement C4 Miscellaneous Test Crossmatch 01/25/17 01/25/17 01/25/17 04:00 11:15 13:05 WBC RBC 2.49 L Hgb 6.7 L Hct 20.9 L MCV MCH 27 L MCHC RDW 18.8 H Plt Count Lymph % (Auto) [place] % (Auto) 10.1 H Lymph # [place] # 1.0 H Baso # Seg Neutrophils % Seg Neuts % (Manual) Lymphocytes % (Manual) Monocytes % (Manual) Eosinophils % (Manual) Basophils % (Manual) Nucleated RBC % Seg Neutrophils # Seg Neutrophils # Man Lymphocytes # (Manual) Monocytes # (Manual) Eosinophils # (Manual) Basophils # (Manual) PT INR Fibrinogen dRVVT Confirm Interp Factor V Activity POC ABG pH POC ABG pCO2 POC ABG pO2 ABG pO2 ABG HCO3 ABG Base Excess ABG Hemoglobin Oxyhemoglobin Sodium Potassium Chloride Carbon Dioxide BUN Creatinine Glucose POC Glucose 128 H Lactic Acid Calcium Ionized Calcium Phosphorus Magnesium Direct Bilirubin AST ALT Alkaline Phosphatase Lactate Dehydrogenase Troponin T C-Reactive Protein Total Protein Albumin Prealbumin Triglycerides Cholesterol LDL Cholesterol Direct HDL Cholesterol 25-OH Vitamin D Total PTH Intact Urine pH Urine WBC (Auto) Urine Creatinine Urine Total Protein Fluid Total Protein Vancomycin Trough Rheumatoid Factor Complement C4 Miscellaneous Test Crossmatch See Detail 01/25/17 01/25/17 01/26/17 18:02 23:07 01:20 WBC RBC Hgb Hct MCV MCH MCHC RDW Plt Count Lymph % (Auto) [place] % (Auto) Lymph # [place] # Baso # Seg Neutrophils % Seg Neuts % (Manual) Lymphocytes % (Manual) Monocytes % (Manual) Eosinophils % (Manual) Basophils % (Manual) Nucleated RBC % Seg Neutrophils # Seg Neutrophils # Man Lymphocytes # (Manual) Monocytes # (Manual) Eosinophils # (Manual) Basophils # (Manual) PT INR Fibrinogen dRVVT Confirm Interp Factor V Activity POC ABG pH POC ABG pCO2 POC ABG pO2 ABG pO2 ABG HCO3 ABG Base Excess ABG Hemoglobin Oxyhemoglobin Sodium Potassium Chloride Carbon Dioxide BUN Creatinine Glucose POC Glucose 120 H 123 H 112 H Lactic Acid Calcium Ionized Calcium Phosphorus Magnesium Direct Bilirubin AST ALT Alkaline Phosphatase Lactate Dehydrogenase Troponin T C-Reactive Protein Total Protein Albumin Prealbumin Triglycerides Cholesterol LDL Cholesterol Direct HDL Cholesterol 25-OH Vitamin D Total PTH Intact Urine pH Urine WBC (Auto) Urine Creatinine Urine Total Protein Fluid Total Protein Vancomycin Trough Rheumatoid Factor Complement C4 Miscellaneous Test Crossmatch 01/26/17 01/26/17 01/26/17 04:20 04:20 11:23 WBC 13.1 H RBC 3.28 L Hgb 9.0 L Hct 26.9 L D MCV MCH 27 L MCHC RDW 17.2 H Plt Count Lymph % (Auto) [place] % (Auto) 9.0 H Lymph # [place] # 1.2 H Baso # Seg Neutrophils % 73.1 H Seg Neuts % (Manual) Lymphocytes % (Manual) Monocytes % (Manual) Eosinophils % (Manual) Basophils % (Manual) Nucleated RBC % Seg Neutrophils # 9.6 H Seg Neutrophils # Man Lymphocytes # (Manual) Monocytes # (Manual) Eosinophils # (Manual) Basophils # (Manual) PT INR Fibrinogen dRVVT Confirm Interp Factor V Activity POC ABG pH POC ABG pCO2 POC ABG pO2 ABG pO2 ABG HCO3 ABG Base Excess ABG Hemoglobin Oxyhemoglobin Sodium Potassium Chloride Carbon Dioxide BUN 51 H Creatinine Glucose 117 H POC Glucose 125 H Lactic Acid Calcium Ionized Calcium Phosphorus Magnesium Direct Bilirubin AST ALT Alkaline Phosphatase Lactate Dehydrogenase Troponin T C-Reactive Protein Total Protein Albumin Prealbumin Triglycerides Cholesterol LDL Cholesterol Direct HDL Cholesterol 25-OH Vitamin D Total PTH Intact Urine pH Urine WBC (Auto) Urine Creatinine Urine Total Protein Fluid Total Protein Vancomycin Trough Rheumatoid Factor Complement C4 Miscellaneous Test Crossmatch 01/26/17 01/27/17 01/27/17 17:11 00:30 04:00 WBC RBC Hgb Hct MCV MCH MCHC RDW Plt Count Lymph % (Auto) [place] % (Auto) Lymph # [place] # Baso # Seg Neutrophils % Seg Neuts % (Manual) Lymphocytes % (Manual) Monocytes % (Manual) Eosinophils % (Manual) Basophils % (Manual) Nucleated RBC % Seg Neutrophils # Seg Neutrophils # Man Lymphocytes # (Manual) Monocytes # (Manual) Eosinophils # (Manual) Basophils # (Manual) PT INR Fibrinogen dRVVT Confirm Interp Factor V Activity POC ABG pH POC ABG pCO2 POC ABG pO2 ABG pO2 ABG HCO3 ABG Base Excess ABG Hemoglobin Oxyhemoglobin Sodium Potassium Chloride 97.7 L Carbon Dioxide 21 L BUN 79 H Creatinine 1.7 H D Glucose 112 H POC Glucose 133 H 135 H Lactic Acid Calcium Ionized Calcium Phosphorus 5.00 H D Magnesium Direct Bilirubin AST ALT Alkaline Phosphatase Lactate Dehydrogenase Troponin T C-Reactive Protein Total Protein Albumin Prealbumin Triglycerides Cholesterol LDL Cholesterol Direct HDL Cholesterol 25-OH Vitamin D Total PTH Intact Urine pH Urine WBC (Auto) Urine Creatinine Urine Total Protein Fluid Total Protein Vancomycin Trough Rheumatoid Factor Complement C4 Miscellaneous Test Crossmatch 01/27/17 01/27/17 01/27/17 05:12 12:18 17:25 WBC RBC Hgb Hct MCV MCH MCHC RDW Plt Count Lymph % (Auto) [place] % (Auto) Lymph # [place] # Baso # Seg Neutrophils % Seg Neuts % (Manual) Lymphocytes % (Manual) Monocytes % (Manual) Eosinophils % (Manual) Basophils % (Manual) Nucleated RBC % Seg Neutrophils # Seg Neutrophils # Man Lymphocytes # (Manual) Monocytes # (Manual) Eosinophils # (Manual) Basophils # (Manual) PT INR Fibrinogen dRVVT Confirm Interp Factor V Activity POC ABG pH POC ABG pCO2 POC ABG pO2 ABG pO2 ABG HCO3 ABG Base Excess ABG Hemoglobin Oxyhemoglobin Sodium Potassium Chloride Carbon Dioxide BUN Creatinine Glucose POC Glucose 116 H 153 H 152 H Lactic Acid Calcium Ionized Calcium Phosphorus Magnesium Direct Bilirubin AST ALT Alkaline Phosphatase Lactate Dehydrogenase Troponin T C-Reactive Protein Total Protein Albumin Prealbumin Triglycerides Cholesterol LDL Cholesterol Direct HDL Cholesterol 25-OH Vitamin D Total PTH Intact Urine pH Urine WBC (Auto) Urine Creatinine Urine Total Protein Fluid Total Protein Vancomycin Trough Rheumatoid Factor Complement C4 Miscellaneous Test Crossmatch 01/27/17 01/28/17 01/28/17 23:42 04:00 04:00 WBC 14.4 H RBC 2.82 L Hgb 7.4 L Hct 23.5 L MCV MCH 26 L MCHC RDW 17.6 H Plt Count Lymph % (Auto) 10.2 L [place] % (Auto) 11.0 H Lymph # [place] # 1.6 H Baso # Seg Neutrophils % 78.0 H Seg Neuts % (Manual) Lymphocytes % (Manual) Monocytes % (Manual) Eosinophils % (Manual) Basophils % (Manual) Nucleated RBC % Seg Neutrophils # 11.3 H Seg Neutrophils # Man Lymphocytes # (Manual) Monocytes # (Manual) Eosinophils # (Manual) Basophils # (Manual) PT INR Fibrinogen dRVVT Confirm Interp Factor V Activity POC ABG pH POC ABG pCO2 POC ABG pO2 ABG pO2 ABG HCO3 ABG Base Excess ABG Hemoglobin Oxyhemoglobin Sodium Potassium Chloride Carbon Dioxide BUN 55 H Creatinine 1.3 H Glucose 114 H POC Glucose 121 H Lactic Acid Calcium Ionized Calcium Phosphorus Magnesium Direct Bilirubin AST ALT Alkaline Phosphatase Lactate Dehydrogenase Troponin T C-Reactive Protein Total Protein Albumin 1.4 L Prealbumin Triglycerides Cholesterol LDL Cholesterol Direct HDL Cholesterol 25-OH Vitamin D Total PTH Intact Urine pH Urine WBC (Auto) Urine Creatinine Urine Total Protein Fluid Total Protein Vancomycin Trough Rheumatoid Factor Complement C4 Miscellaneous Test Crossmatch 01/28/17 01/28/17 01/29/17 04:59 12:30 00:02 WBC RBC Hgb Hct MCV MCH MCHC RDW Plt Count Lymph % (Auto) [place] % (Auto) Lymph # [place] # Baso # Seg Neutrophils % Seg Neuts % (Manual) Lymphocytes % (Manual) Monocytes % (Manual) Eosinophils % (Manual) Basophils % (Manual) Nucleated RBC % Seg Neutrophils # Seg Neutrophils # Man Lymphocytes # (Manual) Monocytes # (Manual) Eosinophils # (Manual) Basophils # (Manual) PT INR Fibrinogen dRVVT Confirm Interp Factor V Activity POC ABG pH POC ABG pCO2 POC ABG pO2 ABG pO2 ABG HCO3 ABG Base Excess ABG Hemoglobin Oxyhemoglobin Sodium Potassium Chloride Carbon Dioxide BUN Creatinine Glucose POC Glucose 126 H 119 H 138 H Lactic Acid Calcium Ionized Calcium Phosphorus Magnesium Direct Bilirubin AST ALT Alkaline Phosphatase Lactate Dehydrogenase Troponin T C-Reactive Protein Total Protein Albumin Prealbumin Triglycerides Cholesterol LDL Cholesterol Direct HDL Cholesterol 25-OH Vitamin D Total PTH Intact Urine pH Urine WBC (Auto) Urine Creatinine Urine Total Protein Fluid Total Protein Vancomycin Trough Rheumatoid Factor Complement C4 Miscellaneous Test Crossmatch 01/29/17 01/29/17 01/29/17 04:58 06:15 11:35 WBC RBC Hgb Hct MCV MCH MCHC RDW Plt Count Lymph % (Auto) [place] % (Auto) Lymph # [place] # Baso # Seg Neutrophils % Seg Neuts % (Manual) Lymphocytes % (Manual) Monocytes % (Manual) Eosinophils % (Manual) Basophils % (Manual) Nucleated RBC % Seg Neutrophils # Seg Neutrophils # Man Lymphocytes # (Manual) Monocytes # (Manual) Eosinophils # (Manual) Basophils # (Manual) PT INR Fibrinogen dRVVT Confirm Interp Factor V Activity POC ABG pH POC ABG pCO2 POC ABG pO2 ABG pO2 ABG HCO3 ABG Base Excess ABG Hemoglobin Oxyhemoglobin Sodium Potassium Chloride Carbon Dioxide BUN 85 H Creatinine 1.7 H Glucose 105 H POC Glucose 114 H 110 H Lactic Acid Calcium Ionized Calcium Phosphorus Magnesium 2.40 H Direct Bilirubin AST ALT Alkaline Phosphatase Lactate Dehydrogenase Troponin T C-Reactive Protein Total Protein Albumin Prealbumin Triglycerides Cholesterol LDL Cholesterol Direct HDL Cholesterol 25-OH Vitamin D Total PTH Intact Urine pH Urine WBC (Auto) Urine Creatinine Urine Total Protein Fluid Total Protein Vancomycin Trough Rheumatoid Factor Complement C4 Miscellaneous Test Crossmatch 01/29/17 01/29/17 01/30/17 18:24 23:41 05:12 WBC RBC Hgb Hct MCV MCH MCHC RDW Plt Count Lymph % (Auto) [place] % (Auto) Lymph # [place] # Baso # Seg Neutrophils % Seg Neuts % (Manual) Lymphocytes % (Manual) Monocytes % (Manual) Eosinophils % (Manual) Basophils % (Manual) Nucleated RBC % Seg Neutrophils # Seg Neutrophils # Man Lymphocytes # (Manual) Monocytes # (Manual) Eosinophils # (Manual) Basophils # (Manual) PT INR Fibrinogen dRVVT Confirm Interp Factor V Activity POC ABG pH POC ABG pCO2 POC ABG pO2 ABG pO2 ABG HCO3 ABG Base Excess ABG Hemoglobin Oxyhemoglobin Sodium Potassium Chloride Carbon Dioxide BUN Creatinine Glucose POC Glucose 109 H 134 H 109 H Lactic Acid Calcium Ionized Calcium Phosphorus Magnesium Direct Bilirubin AST ALT Alkaline Phosphatase Lactate Dehydrogenase Troponin T C-Reactive Protein Total Protein Albumin Prealbumin Triglycerides Cholesterol LDL Cholesterol Direct HDL Cholesterol 25-OH Vitamin D Total PTH Intact Urine pH Urine WBC (Auto) Urine Creatinine Urine Total Protein Fluid Total Protein Vancomycin Trough Rheumatoid Factor Complement C4 Miscellaneous Test Crossmatch 01/30/17 01/30/17 01/30/17 11:26 17:43 23:39 WBC RBC Hgb Hct MCV MCH MCHC RDW Plt Count Lymph % (Auto) [place] % (Auto) Lymph # [place] # Baso # Seg Neutrophils % Seg Neuts % (Manual) Lymphocytes % (Manual) Monocytes % (Manual) Eosinophils % (Manual) Basophils % (Manual) Nucleated RBC % Seg Neutrophils # Seg Neutrophils # Man Lymphocytes # (Manual) Monocytes # (Manual) Eosinophils # (Manual) Basophils # (Manual) PT INR Fibrinogen dRVVT Confirm Interp Factor V Activity POC ABG pH POC ABG pCO2 POC ABG pO2 ABG pO2 ABG HCO3 ABG Base Excess ABG Hemoglobin Oxyhemoglobin Sodium Potassium Chloride Carbon Dioxide BUN Creatinine Glucose POC Glucose 135 H 143 H 122 H Lactic Acid Calcium Ionized Calcium Phosphorus Magnesium Direct Bilirubin AST ALT Alkaline Phosphatase Lactate Dehydrogenase Troponin T C-Reactive Protein Total Protein Albumin Prealbumin Triglycerides Cholesterol LDL Cholesterol Direct HDL Cholesterol 25-OH Vitamin D Total PTH Intact Urine pH Urine WBC (Auto) Urine Creatinine Urine Total Protein Fluid Total Protein Vancomycin Trough Rheumatoid Factor Complement C4 Miscellaneous Test Crossmatch 01/31/17 01/31/17 01/31/17 04:00 05:40 11:12 WBC RBC Hgb Hct MCV MCH MCHC RDW Plt Count Lymph % (Auto) [place] % (Auto) Lymph # [place] # Baso # Seg Neutrophils % Seg Neuts % (Manual) Lymphocytes % (Manual) Monocytes % (Manual) Eosinophils % (Manual) Basophils % (Manual) Nucleated RBC % Seg Neutrophils # Seg Neutrophils # Man Lymphocytes # (Manual) Monocytes # (Manual) Eosinophils # (Manual) Basophils # (Manual) PT INR Fibrinogen dRVVT Confirm Interp Factor V Activity POC ABG pH POC ABG pCO2 POC ABG pO2 ABG pO2 ABG HCO3 ABG Base Excess ABG Hemoglobin Oxyhemoglobin Sodium Potassium Chloride Carbon Dioxide BUN 78 H Creatinine 1.5 H Glucose 108 H POC Glucose 123 H Lactic Acid Calcium Ionized Calcium Phosphorus Magnesium Direct Bilirubin AST ALT Alkaline Phosphatase Lactate Dehydrogenase Troponin T C-Reactive Protein 8.10 H Total Protein Albumin Prealbumin Triglycerides Cholesterol LDL Cholesterol Direct HDL Cholesterol 25-OH Vitamin D Total PTH Intact Urine pH Urine WBC (Auto) Urine Creatinine Urine Total Protein Fluid Total Protein Vancomycin Trough Rheumatoid Factor Complement C4 Miscellaneous Test Crossmatch 01/31/17 01/31/17 01/31/17 11:16 17:45 17:50 WBC RBC Hgb Hct MCV MCH MCHC RDW Plt Count Lymph % (Auto) [place] % (Auto) Lymph # [place] # Baso # Seg Neutrophils % Seg Neuts % (Manual) Lymphocytes % (Manual) Monocytes % (Manual) Eosinophils % (Manual) Basophils % (Manual) Nucleated RBC % Seg Neutrophils # Seg Neutrophils # Man Lymphocytes # (Manual) Monocytes # (Manual) Eosinophils # (Manual) Basophils # (Manual) PT INR Fibrinogen dRVVT Confirm Interp Factor V Activity POC ABG pH POC ABG pCO2 POC ABG pO2 ABG pO2 ABG HCO3 ABG Base Excess ABG Hemoglobin Oxyhemoglobin Sodium Potassium Chloride Carbon Dioxide BUN Creatinine Glucose POC Glucose 119 H 111 H Lactic Acid Calcium Ionized Calcium Phosphorus Magnesium Direct Bilirubin AST ALT Alkaline Phosphatase Lactate Dehydrogenase Troponin T C-Reactive Protein Total Protein Albumin Prealbumin Triglycerides Cholesterol LDL Cholesterol Direct HDL Cholesterol 25-OH Vitamin D Total PTH Intact 6.76 L Urine pH Urine WBC (Auto) Urine Creatinine Urine Total Protein Fluid Total Protein Vancomycin Trough Rheumatoid Factor Complement C4 Miscellaneous Test Crossmatch 01/31/17 02/01/17 02/01/17 23:19 05:42 09:24 WBC RBC Hgb Hct MCV MCH MCHC RDW Plt Count Lymph % (Auto) [place] % (Auto) Lymph # [place] # Baso # Seg Neutrophils % Seg Neuts % (Manual) Lymphocytes % (Manual) Monocytes % (Manual) Eosinophils % (Manual) Basophils % (Manual) Nucleated RBC % Seg Neutrophils # Seg Neutrophils # Man Lymphocytes # (Manual) Monocytes # (Manual) Eosinophils # (Manual) Basophils # (Manual) PT INR Fibrinogen dRVVT Confirm Interp Factor V Activity POC ABG pH POC ABG pCO2 POC ABG pO2 ABG pO2 ABG HCO3 ABG Base Excess ABG Hemoglobin Oxyhemoglobin Sodium Potassium Chloride Carbon Dioxide BUN Creatinine Glucose POC Glucose 118 H 122 H Lactic Acid Calcium Ionized Calcium Phosphorus Magnesium 2.60 H Direct Bilirubin AST ALT Alkaline Phosphatase Lactate Dehydrogenase Troponin T C-Reactive Protein Total Protein Albumin Prealbumin Triglycerides Cholesterol LDL Cholesterol Direct HDL Cholesterol 25-OH Vitamin D Total PTH Intact Urine pH Urine WBC (Auto) Urine Creatinine Urine Total Protein Fluid Total Protein Vancomycin Trough Rheumatoid Factor Complement C4 Miscellaneous Test Crossmatch 02/01/17 02/01/17 02/02/17 09:24 12:15 07:40 WBC RBC Hgb Hct MCV MCH MCHC RDW Plt Count Lymph % (Auto) [place] % (Auto) Lymph # [place] # Baso # Seg Neutrophils % Seg Neuts % (Manual) Lymphocytes % (Manual) Monocytes % (Manual) Eosinophils % (Manual) Basophils % (Manual) Nucleated RBC % Seg Neutrophils # Seg Neutrophils # Man Lymphocytes # (Manual) Monocytes # (Manual) Eosinophils # (Manual) Basophils # (Manual) PT INR Fibrinogen dRVVT Confirm Interp Factor V Activity POC ABG pH POC ABG pCO2 POC ABG pO2 ABG pO2 ABG HCO3 ABG Base Excess ABG Hemoglobin Oxyhemoglobin Sodium Potassium Chloride Carbon Dioxide BUN 102 H 72 H Creatinine 1.9 H 1.5 H Glucose 120 H POC Glucose 156 H Lactic Acid Calcium Ionized Calcium Phosphorus Magnesium Direct Bilirubin AST ALT Alkaline Phosphatase Lactate Dehydrogenase Troponin T C-Reactive Protein Total Protein Albumin Prealbumin Triglycerides Cholesterol LDL Cholesterol Direct HDL Cholesterol 25-OH Vitamin D Total PTH Intact Urine pH Urine WBC (Auto) Urine Creatinine Urine Total Protein Fluid Total Protein Vancomycin Trough Rheumatoid Factor Complement C4 Miscellaneous Test Crossmatch 02/02/17 02/02/17 02/03/17 10:16 12:11 00:08 WBC 12.0 H RBC 3.08 L Hgb 8.3 L Hct 25.6 L MCV MCH 27 L MCHC RDW 18.2 H Plt Count Lymph % (Auto) [place] % (Auto) Lymph # [place] # Baso # Seg Neutrophils % 78.4 H Seg Neuts % (Manual) Lymphocytes % (Manual) Monocytes % (Manual) Eosinophils % (Manual) Basophils % (Manual) Nucleated RBC % Seg Neutrophils # 9.4 H Seg Neutrophils # Man Lymphocytes # (Manual) Monocytes # (Manual) Eosinophils # (Manual) Basophils # (Manual) PT INR Fibrinogen dRVVT Confirm Interp Factor V Activity POC ABG pH POC ABG pCO2 POC ABG pO2 ABG pO2 ABG HCO3 ABG Base Excess ABG Hemoglobin Oxyhemoglobin Sodium Potassium Chloride Carbon Dioxide BUN Creatinine Glucose POC Glucose 110 H 120 H Lactic Acid Calcium Ionized Calcium Phosphorus Magnesium Direct Bilirubin AST ALT Alkaline Phosphatase Lactate Dehydrogenase Troponin T C-Reactive Protein Total Protein Albumin Prealbumin Triglycerides Cholesterol LDL Cholesterol Direct HDL Cholesterol 25-OH Vitamin D Total PTH Intact Urine pH Urine WBC (Auto) Urine Creatinine Urine Total Protein Fluid Total Protein Vancomycin Trough Rheumatoid Factor Complement C4 Miscellaneous Test Crossmatch 02/03/17 02/03/17 02/03/17 05:41 07:38 11:31 WBC RBC Hgb Hct MCV MCH MCHC RDW Plt Count Lymph % (Auto) [place] % (Auto) Lymph # [place] # Baso # Seg Neutrophils % Seg Neuts % (Manual) Lymphocytes % (Manual) Monocytes % (Manual) Eosinophils % (Manual) Basophils % (Manual) Nucleated RBC % Seg Neutrophils # Seg Neutrophils # Man Lymphocytes # (Manual) Monocytes # (Manual) Eosinophils # (Manual) Basophils # (Manual) PT INR Fibrinogen dRVVT Confirm Interp Factor V Activity POC ABG pH POC ABG pCO2 POC ABG pO2 ABG pO2 ABG HCO3 ABG Base Excess ABG Hemoglobin Oxyhemoglobin Sodium 134 L Potassium Chloride Carbon Dioxide 21 L BUN 91 H Creatinine 1.9 H Glucose 110 H POC Glucose 119 H 119 H Lactic Acid Calcium 10.3 H Ionized Calcium Phosphorus Magnesium Direct Bilirubin AST ALT Alkaline Phosphatase Lactate Dehydrogenase Troponin T C-Reactive Protein Total Protein Albumin Prealbumin Triglycerides Cholesterol LDL Cholesterol Direct HDL Cholesterol 25-OH Vitamin D Total PTH Intact Urine pH Urine WBC (Auto) Urine Creatinine Urine Total Protein Fluid Total Protein Vancomycin Trough Rheumatoid Factor Complement C4 Miscellaneous Test Crossmatch 02/03/17 02/04/17 02/04/17 17:13 04:00 05:18 WBC RBC Hgb Hct MCV MCH MCHC RDW Plt Count Lymph % (Auto) [place] % (Auto) Lymph # [place] # Baso # Seg Neutrophils % Seg Neuts % (Manual) Lymphocytes % (Manual) Monocytes % (Manual) Eosinophils % (Manual) Basophils % (Manual) Nucleated RBC % Seg Neutrophils # Seg Neutrophils # Man Lymphocytes # (Manual) Monocytes # (Manual) Eosinophils # (Manual) Basophils # (Manual) PT INR Fibrinogen dRVVT Confirm Interp Factor V Activity POC ABG pH POC ABG pCO2 POC ABG pO2 ABG pO2 ABG HCO3 ABG Base Excess ABG Hemoglobin Oxyhemoglobin Sodium 136 L Potassium Chloride Carbon Dioxide BUN 58 H Creatinine 1.3 H Glucose 103 H POC Glucose 133 H 132 H Lactic Acid Calcium Ionized Calcium Phosphorus 2.00 L D Magnesium 1.60 L Direct Bilirubin AST ALT Alkaline Phosphatase Lactate Dehydrogenase Troponin T C-Reactive Protein Total Protein Albumin Prealbumin Triglycerides Cholesterol LDL Cholesterol Direct HDL Cholesterol 25-OH Vitamin D Total PTH Intact Urine pH Urine WBC (Auto) Urine Creatinine Urine Total Protein Fluid Total Protein Vancomycin Trough Rheumatoid Factor Complement C4 Miscellaneous Test Crossmatch 02/05/17 02/05/17 02/05/17 00:01 04:00 06:42 WBC RBC Hgb Hct MCV MCH MCHC RDW Plt Count Lymph % (Auto) [place] % (Auto) Lymph # [place] # Baso # Seg Neutrophils % Seg Neuts % (Manual) Lymphocytes % (Manual) Monocytes % (Manual) Eosinophils % (Manual) Basophils % (Manual) Nucleated RBC % Seg Neutrophils # Seg Neutrophils # Man Lymphocytes # (Manual) Monocytes # (Manual) Eosinophils # (Manual) Basophils # (Manual) PT INR Fibrinogen dRVVT Confirm Interp Factor V Activity POC ABG pH POC ABG pCO2 POC ABG pO2 ABG pO2 ABG HCO3 ABG Base Excess ABG Hemoglobin Oxyhemoglobin Sodium Potassium Chloride Carbon Dioxide BUN 83 H Creatinine 1.8 H Glucose POC Glucose 119 H 110 H Lactic Acid Calcium 10.7 H Ionized Calcium Phosphorus Magnesium Direct Bilirubin AST ALT Alkaline Phosphatase Lactate Dehydrogenase Troponin T C-Reactive Protein Total Protein Albumin Prealbumin Triglycerides Cholesterol LDL Cholesterol Direct HDL Cholesterol 25-OH Vitamin D Total PTH Intact Urine pH Urine WBC (Auto) Urine Creatinine Urine Total Protein Fluid Total Protein Vancomycin Trough Rheumatoid Factor Complement C4 Miscellaneous Test Crossmatch 02/05/17 02/05/17 02/05/17 09:59 11:47 23:44 WBC RBC 2.69 L Hgb 7.2 L Hct 22.5 L MCV MCH 27 L MCHC RDW 18.6 H Plt Count Lymph % (Auto) [place] % (Auto) 9.2 H Lymph # [place] # 0.9 H Baso # Seg Neutrophils % Seg Neuts % (Manual) Lymphocytes % (Manual) Monocytes % (Manual) Eosinophils % (Manual) Basophils % (Manual) Nucleated RBC % Seg Neutrophils # Seg Neutrophils # Man Lymphocytes # (Manual) Monocytes # (Manual) Eosinophils # (Manual) Basophils # (Manual) PT INR Fibrinogen dRVVT Confirm Interp Factor V Activity POC ABG pH POC ABG pCO2 POC ABG pO2 ABG pO2 ABG HCO3 ABG Base Excess ABG Hemoglobin Oxyhemoglobin Sodium Potassium Chloride Carbon Dioxide BUN Creatinine Glucose POC Glucose 130 H 123 H Lactic Acid Calcium Ionized Calcium Phosphorus Magnesium Direct Bilirubin AST ALT Alkaline Phosphatase Lactate Dehydrogenase Troponin T C-Reactive Protein Total Protein Albumin Prealbumin Triglycerides Cholesterol LDL Cholesterol Direct HDL Cholesterol 25-OH Vitamin D Total PTH Intact Urine pH Urine WBC (Auto) Urine Creatinine Urine Total Protein Fluid Total Protein Vancomycin Trough Rheumatoid Factor Complement C4 Miscellaneous Test Crossmatch 02/06/17 02/06/17 02/06/17 04:45 05:58 12:01 WBC RBC Hgb Hct MCV MCH MCHC RDW Plt Count Lymph % (Auto) [place] % (Auto) Lymph # [place] # Baso # Seg Neutrophils % Seg Neuts % (Manual) Lymphocytes % (Manual) Monocytes % (Manual) Eosinophils % (Manual) Basophils % (Manual) Nucleated RBC % Seg Neutrophils # Seg Neutrophils # Man Lymphocytes # (Manual) Monocytes # (Manual) Eosinophils # (Manual) Basophils # (Manual) PT INR Fibrinogen dRVVT Confirm Interp Factor V Activity POC ABG pH POC ABG pCO2 POC ABG pO2 ABG pO2 ABG HCO3 ABG Base Excess ABG Hemoglobin Oxyhemoglobin Sodium Potassium Chloride Carbon Dioxide BUN 101 H Creatinine 2.0 H Glucose 102 H POC Glucose 115 H 132 H Lactic Acid Calcium 10.6 H Ionized Calcium Phosphorus Magnesium Direct Bilirubin AST ALT Alkaline Phosphatase 199 H Lactate Dehydrogenase Troponin T C-Reactive Protein Total Protein Albumin 1.4 L Prealbumin Triglycerides Cholesterol LDL Cholesterol Direct HDL Cholesterol 25-OH Vitamin D Total PTH Intact Urine pH Urine WBC (Auto) Urine Creatinine Urine Total Protein Fluid Total Protein Vancomycin Trough Rheumatoid Factor Complement C4 Miscellaneous Test Crossmatch 02/06/17 02/06/17 02/07/17 17:41 23:32 05:04 WBC RBC Hgb Hct MCV MCH MCHC RDW Plt Count Lymph % (Auto) [place] % (Auto) Lymph # [place] # Baso # Seg Neutrophils % Seg Neuts % (Manual) Lymphocytes % (Manual) Monocytes % (Manual) Eosinophils % (Manual) Basophils % (Manual) Nucleated RBC % Seg Neutrophils # Seg Neutrophils # Man Lymphocytes # (Manual) Monocytes # (Manual) Eosinophils # (Manual) Basophils # (Manual) PT INR Fibrinogen dRVVT Confirm Interp Factor V Activity POC ABG pH POC ABG pCO2 POC ABG pO2 ABG pO2 ABG HCO3 ABG Base Excess ABG Hemoglobin Oxyhemoglobin Sodium Potassium Chloride Carbon Dioxide BUN Creatinine Glucose POC Glucose 134 H 128 H 119 H Lactic Acid Calcium Ionized Calcium Phosphorus Magnesium Direct Bilirubin AST ALT Alkaline Phosphatase Lactate Dehydrogenase Troponin T C-Reactive Protein Total Protein Albumin Prealbumin Triglycerides Cholesterol LDL Cholesterol Direct HDL Cholesterol 25-OH Vitamin D Total PTH Intact Urine pH Urine WBC (Auto) Urine Creatinine Urine Total Protein Fluid Total Protein Vancomycin Trough Rheumatoid Factor Complement C4 Miscellaneous Test Crossmatch 02/07/17 02/07/17 02/07/17 06:30 11:20 17:13 WBC RBC Hgb Hct MCV MCH MCHC RDW Plt Count Lymph % (Auto) [place] % (Auto) Lymph # [place] # Baso # Seg Neutrophils % Seg Neuts % (Manual) Lymphocytes % (Manual) Monocytes % (Manual) Eosinophils % (Manual) Basophils % (Manual) Nucleated RBC % Seg Neutrophils # Seg Neutrophils # Man Lymphocytes # (Manual) Monocytes # (Manual) Eosinophils # (Manual) Basophils # (Manual) PT INR Fibrinogen dRVVT Confirm Interp Factor V Activity POC ABG pH POC ABG pCO2 POC ABG pO2 ABG pO2 ABG HCO3 ABG Base Excess ABG Hemoglobin Oxyhemoglobin Sodium Potassium 3.4 L Chloride Carbon Dioxide BUN 69 H Creatinine 1.5 H Glucose 105 H POC Glucose 117 H 110 H Lactic Acid Calcium Ionized Calcium Phosphorus Magnesium 1.50 L Direct Bilirubin AST ALT Alkaline Phosphatase Lactate Dehydrogenase Troponin T C-Reactive Protein Total Protein Albumin Prealbumin Triglycerides Cholesterol LDL Cholesterol Direct HDL Cholesterol 25-OH Vitamin D Total PTH Intact Urine pH Urine WBC (Auto) Urine Creatinine Urine Total Protein Fluid Total Protein Vancomycin Trough Rheumatoid Factor Complement C4 Miscellaneous Test Crossmatch 02/07/17 02/08/17 02/08/17 20:47 04:00 11:43 WBC RBC Hgb Hct MCV MCH MCHC RDW Plt Count Lymph % (Auto) [place] % (Auto) Lymph # [place] # Baso # Seg Neutrophils % Seg Neuts % (Manual) Lymphocytes % (Manual) Monocytes % (Manual) Eosinophils % (Manual) Basophils % (Manual) Nucleated RBC % Seg Neutrophils # Seg Neutrophils # Man Lymphocytes # (Manual) Monocytes # (Manual) Eosinophils # (Manual) Basophils # (Manual) PT INR Fibrinogen dRVVT Confirm Interp Factor V Activity POC ABG pH POC ABG pCO2 POC ABG pO2 ABG pO2 ABG HCO3 ABG Base Excess ABG Hemoglobin Oxyhemoglobin Sodium Potassium Chloride Carbon Dioxide BUN 86 H Creatinine 1.7 H Glucose POC Glucose 115 H 122 H Lactic Acid Calcium Ionized Calcium Phosphorus Magnesium 1.60 L Direct Bilirubin AST ALT Alkaline Phosphatase Lactate Dehydrogenase Troponin T C-Reactive Protein Total Protein Albumin Prealbumin Triglycerides Cholesterol LDL Cholesterol Direct HDL Cholesterol 25-OH Vitamin D Total PTH Intact Urine pH Urine WBC (Auto) Urine Creatinine Urine Total Protein Fluid Total Protein Vancomycin Trough Rheumatoid Factor Complement C4 Miscellaneous Test Crossmatch 02/08/17 02/09/17 02/09/17 17:36 05:44 11:30 WBC RBC Hgb Hct MCV MCH MCHC RDW Plt Count Lymph % (Auto) [place] % (Auto) Lymph # [place] # Baso # Seg Neutrophils % Seg Neuts % (Manual) Lymphocytes % (Manual) Monocytes % (Manual) Eosinophils % (Manual) Basophils % (Manual) Nucleated RBC % Seg Neutrophils # Seg Neutrophils # Man Lymphocytes # (Manual) Monocytes # (Manual) Eosinophils # (Manual) Basophils # (Manual) PT INR Fibrinogen dRVVT Confirm Interp Factor V Activity POC ABG pH POC ABG pCO2 POC ABG pO2 ABG pO2 ABG HCO3 ABG Base Excess ABG Hemoglobin Oxyhemoglobin Sodium Potassium Chloride Carbon Dioxide BUN Creatinine Glucose POC Glucose 125 H 117 H 120 H Lactic Acid Calcium Ionized Calcium Phosphorus Magnesium Direct Bilirubin AST ALT Alkaline Phosphatase Lactate Dehydrogenase Troponin T C-Reactive Protein Total Protein Albumin Prealbumin Triglycerides Cholesterol LDL Cholesterol Direct HDL Cholesterol 25-OH Vitamin D Total PTH Intact Urine pH Urine WBC (Auto) Urine Creatinine Urine Total Protein Fluid Total Protein Vancomycin Trough Rheumatoid Factor Complement C4 Miscellaneous Test Crossmatch 02/09/17 02/10/17 02/10/17 23:45 05:45 05:50 WBC RBC Hgb Hct MCV MCH MCHC RDW Plt Count Lymph % (Auto) [place] % (Auto) Lymph # [place] # Baso # Seg Neutrophils % Seg Neuts % (Manual) Lymphocytes % (Manual) Monocytes % (Manual) Eosinophils % (Manual) Basophils % (Manual) Nucleated RBC % Seg Neutrophils # Seg Neutrophils # Man Lymphocytes # (Manual) Monocytes # (Manual) Eosinophils # (Manual) Basophils # (Manual) PT INR Fibrinogen dRVVT Confirm Interp Factor V Activity POC ABG pH POC ABG pCO2 POC ABG pO2 ABG pO2 ABG HCO3 ABG Base Excess ABG Hemoglobin Oxyhemoglobin Sodium Potassium Chloride Carbon Dioxide BUN 85 H Creatinine 1.8 H Glucose 109 H POC Glucose 114 H 189 H Lactic Acid Calcium Ionized Calcium Phosphorus Magnesium 2.50 H Direct Bilirubin AST ALT Alkaline Phosphatase Lactate Dehydrogenase Troponin T C-Reactive Protein Total Protein Albumin Prealbumin Triglycerides Cholesterol LDL Cholesterol Direct HDL Cholesterol 25-OH Vitamin D Total PTH Intact Urine pH Urine WBC (Auto) Urine Creatinine Urine Total Protein Fluid Total Protein Vancomycin Trough Rheumatoid Factor Complement C4 Miscellaneous Test Crossmatch 02/10/17 02/10/17 02/10/17 05:51 11:55 17:42 WBC RBC Hgb Hct MCV MCH MCHC RDW Plt Count Lymph % (Auto) [place] % (Auto) Lymph # [place] # Baso # Seg Neutrophils % Seg Neuts % (Manual) Lymphocytes % (Manual) Monocytes % (Manual) Eosinophils % (Manual) Basophils % (Manual) Nucleated RBC % Seg Neutrophils # Seg Neutrophils # Man Lymphocytes # (Manual) Monocytes # (Manual) Eosinophils # (Manual) Basophils # (Manual) PT INR Fibrinogen dRVVT Confirm Interp Factor V Activity POC ABG pH POC ABG pCO2 POC ABG pO2 ABG pO2 ABG HCO3 ABG Base Excess ABG Hemoglobin Oxyhemoglobin Sodium Potassium Chloride Carbon Dioxide BUN Creatinine Glucose POC Glucose 106 H 146 H 132 H Lactic Acid Calcium Ionized Calcium Phosphorus Magnesium Direct Bilirubin AST ALT Alkaline Phosphatase Lactate Dehydrogenase Troponin T C-Reactive Protein Total Protein Albumin Prealbumin Triglycerides Cholesterol LDL Cholesterol Direct HDL Cholesterol 25-OH Vitamin D Total PTH Intact Urine pH Urine WBC (Auto) Urine Creatinine Urine Total Protein Fluid Total Protein Vancomycin Trough Rheumatoid Factor Complement C4 Miscellaneous Test Crossmatch 02/10/17 02/11/17 02/11/17 23:43 04:08 05:34 WBC RBC Hgb Hct MCV MCH MCHC RDW Plt Count Lymph % (Auto) [place] % (Auto) Lymph # [place] # Baso # Seg Neutrophils % Seg Neuts % (Manual) Lymphocytes % (Manual) Monocytes % (Manual) Eosinophils % (Manual) Basophils % (Manual) Nucleated RBC % Seg Neutrophils # Seg Neutrophils # Man Lymphocytes # (Manual) Monocytes # (Manual) Eosinophils # (Manual) Basophils # (Manual) PT INR Fibrinogen dRVVT Confirm Interp Factor V Activity POC ABG pH POC ABG pCO2 POC ABG pO2 ABG pO2 ABG HCO3 ABG Base Excess ABG Hemoglobin Oxyhemoglobin Sodium 136 L Potassium Chloride Carbon Dioxide BUN 65 H Creatinine 1.7 H Glucose 105 H POC Glucose 130 H 113 H Lactic Acid Calcium Ionized Calcium Phosphorus Magnesium Direct Bilirubin AST ALT Alkaline Phosphatase Lactate Dehydrogenase Troponin T C-Reactive Protein Total Protein Albumin Prealbumin Triglycerides Cholesterol LDL Cholesterol Direct HDL Cholesterol 25-OH Vitamin D Total PTH Intact Urine pH Urine WBC (Auto) Urine Creatinine Urine Total Protein Fluid Total Protein Vancomycin Trough Rheumatoid Factor Complement C4 Miscellaneous Test Crossmatch 02/11/17 02/11/17 02/12/17 11:56 23:18 06:19 WBC RBC Hgb Hct MCV MCH MCHC RDW Plt Count Lymph % (Auto) [place] % (Auto) Lymph # [place] # Baso # Seg Neutrophils % Seg Neuts % (Manual) Lymphocytes % (Manual) Monocytes % (Manual) Eosinophils % (Manual) Basophils % (Manual) Nucleated RBC % Seg Neutrophils # Seg Neutrophils # Man Lymphocytes # (Manual) Monocytes # (Manual) Eosinophils # (Manual) Basophils # (Manual) PT INR Fibrinogen dRVVT Confirm Interp Factor V Activity POC ABG pH POC ABG pCO2 POC ABG pO2 ABG pO2 ABG HCO3 ABG Base Excess ABG Hemoglobin Oxyhemoglobin Sodium 136 L Potassium Chloride 97.1 L Carbon Dioxide BUN 93 H Creatinine 2.4 H Glucose POC Glucose 126 H 119 H Lactic Acid Calcium 11.0 H Ionized Calcium Phosphorus Magnesium Direct Bilirubin AST ALT Alkaline Phosphatase Lactate Dehydrogenase Troponin T C-Reactive Protein Total Protein Albumin Prealbumin Triglycerides Cholesterol LDL Cholesterol Direct HDL Cholesterol 25-OH Vitamin D Total PTH Intact Urine pH Urine WBC (Auto) Urine Creatinine Urine Total Protein Fluid Total Protein Vancomycin Trough Rheumatoid Factor Complement C4 Miscellaneous Test Crossmatch 02/12/17 02/12/17 02/12/17 08:00 10:25 11:42 WBC 15.4 H RBC 2.63 L Hgb 6.9 L Hct 22.6 L MCV MCH 26 L MCHC RDW 20.5 H Plt Count Lymph % (Auto) [place] % (Auto) Lymph # [place] # Baso # Seg Neutrophils % Seg Neuts % (Manual) Lymphocytes % (Manual) Monocytes % (Manual) Eosinophils % (Manual) Basophils % (Manual) Nucleated RBC % Seg Neutrophils # Seg Neutrophils # Man Lymphocytes # (Manual) Monocytes # (Manual) Eosinophils # (Manual) Basophils # (Manual) PT INR Fibrinogen dRVVT Confirm Interp Factor V Activity POC ABG pH POC ABG pCO2 POC ABG pO2 ABG pO2 ABG HCO3 ABG Base Excess ABG Hemoglobin Oxyhemoglobin Sodium Potassium Chloride Carbon Dioxide BUN Creatinine Glucose POC Glucose 142 H Lactic Acid Calcium Ionized Calcium Phosphorus Magnesium Direct Bilirubin AST ALT Alkaline Phosphatase Lactate Dehydrogenase Troponin T C-Reactive Protein Total Protein Albumin Prealbumin Triglycerides Cholesterol LDL Cholesterol Direct HDL Cholesterol 25-OH Vitamin D Total PTH Intact Urine pH Urine WBC (Auto) Urine Creatinine Urine Total Protein Fluid Total Protein Vancomycin Trough Rheumatoid Factor Complement C4 Miscellaneous Test Crossmatch See Detail 02/12/17 02/13/17 02/13/17 18:04 00:04 05:00 WBC RBC Hgb Hct MCV MCH MCHC RDW Plt Count Lymph % (Auto) [place] % (Auto) Lymph # [place] # Baso # Seg Neutrophils % Seg Neuts % (Manual) Lymphocytes % (Manual) Monocytes % (Manual) Eosinophils % (Manual) Basophils % (Manual) Nucleated RBC % Seg Neutrophils # Seg Neutrophils # Man Lymphocytes # (Manual) Monocytes # (Manual) Eosinophils # (Manual) Basophils # (Manual) PT INR Fibrinogen dRVVT Confirm Interp Factor V Activity POC ABG pH POC ABG pCO2 POC ABG pO2 ABG pO2 ABG HCO3 ABG Base Excess ABG Hemoglobin Oxyhemoglobin Sodium 134 L Potassium Chloride 96.1 L Carbon Dioxide 20 L BUN 125 H Creatinine 3.0 H Glucose 111 H POC Glucose 135 H 109 H Lactic Acid Calcium 11.3 H Ionized Calcium Phosphorus Magnesium Direct Bilirubin AST ALT Alkaline Phosphatase Lactate Dehydrogenase Troponin T C-Reactive Protein Total Protein Albumin Prealbumin Triglycerides Cholesterol LDL Cholesterol Direct HDL Cholesterol 25-OH Vitamin D Total PTH Intact Urine pH Urine WBC (Auto) Urine Creatinine Urine Total Protein Fluid Total Protein Vancomycin Trough Rheumatoid Factor Complement C4 Miscellaneous Test Crossmatch 02/13/17 02/13/17 02/13/17 05:00 05:28 12:03 WBC 11.9 H RBC 2.92 L Hgb 7.8 L Hct 25.2 L MCV MCH 27 L MCHC RDW 19.3 H Plt Count Lymph % (Auto) [place] % (Auto) Lymph # [place] # Baso # Seg Neutrophils % Seg Neuts % (Manual) Lymphocytes % (Manual) Monocytes % (Manual) Eosinophils % (Manual) Basophils % (Manual) Nucleated RBC % Seg Neutrophils # Seg Neutrophils # Man Lymphocytes # (Manual) Monocytes # (Manual) Eosinophils # (Manual) Basophils # (Manual) PT INR Fibrinogen dRVVT Confirm Interp Factor V Activity POC ABG pH POC ABG pCO2 POC ABG pO2 ABG pO2 ABG HCO3 ABG Base Excess ABG Hemoglobin Oxyhemoglobin Sodium Potassium Chloride Carbon Dioxide BUN Creatinine Glucose POC Glucose 124 H 160 H Lactic Acid Calcium Ionized Calcium Phosphorus Magnesium Direct Bilirubin AST ALT Alkaline Phosphatase Lactate Dehydrogenase Troponin T C-Reactive Protein Total Protein Albumin Prealbumin Triglycerides Cholesterol LDL Cholesterol Direct HDL Cholesterol 25-OH Vitamin D Total PTH Intact Urine pH Urine WBC (Auto) Urine Creatinine Urine Total Protein Fluid Total Protein Vancomycin Trough Rheumatoid Factor Complement C4 Miscellaneous Test Crossmatch 02/13/17 02/14/17 02/14/17 18:09 06:16 08:08 WBC 15.2 H RBC 2.97 L Hgb 8.1 L Hct 26.3 L MCV MCH MCHC RDW 19.3 H Plt Count Lymph % (Auto) [place] % (Auto) Lymph # [place] # Baso # Seg Neutrophils % Seg Neuts % (Manual) Lymphocytes % (Manual) Monocytes % (Manual) Eosinophils % (Manual) Basophils % (Manual) Nucleated RBC % Seg Neutrophils # Seg Neutrophils # Man Lymphocytes # (Manual) Monocytes # (Manual) Eosinophils # (Manual) Basophils # (Manual) PT INR Fibrinogen dRVVT Confirm Interp Factor V Activity POC ABG pH POC ABG pCO2 POC ABG pO2 ABG pO2 ABG HCO3 ABG Base Excess ABG Hemoglobin Oxyhemoglobin Sodium Potassium Chloride Carbon Dioxide BUN Creatinine Glucose POC Glucose 110 H 112 H Lactic Acid Calcium Ionized Calcium Phosphorus Magnesium Direct Bilirubin AST ALT Alkaline Phosphatase Lactate Dehydrogenase Troponin T C-Reactive Protein Total Protein Albumin Prealbumin Triglycerides Cholesterol LDL Cholesterol Direct HDL Cholesterol 25-OH Vitamin D Total PTH Intact Urine pH Urine WBC (Auto) Urine Creatinine Urine Total Protein Fluid Total Protein Vancomycin Trough Rheumatoid Factor Complement C4 Miscellaneous Test Crossmatch 02/14/17 02/14/17 02/15/17 08:08 17:41 04:15 WBC RBC Hgb Hct MCV MCH MCHC RDW Plt Count Lymph % (Auto) [place] % (Auto) Lymph # [place] # Baso # Seg Neutrophils % Seg Neuts % (Manual) Lymphocytes % (Manual) Monocytes % (Manual) Eosinophils % (Manual) Basophils % (Manual) Nucleated RBC % Seg Neutrophils # Seg Neutrophils # Man Lymphocytes # (Manual) Monocytes # (Manual) Eosinophils # (Manual) Basophils # (Manual) PT INR Fibrinogen dRVVT Confirm Interp Factor V Activity POC ABG pH POC ABG pCO2 POC ABG pO2 ABG pO2 ABG HCO3 ABG Base Excess ABG Hemoglobin Oxyhemoglobin Sodium Potassium Chloride Carbon Dioxide 18 L 21 L BUN 79 H 113 H Creatinine 2.1 H 2.8 H Glucose POC Glucose 118 H Lactic Acid Calcium 10.7 H Ionized Calcium Phosphorus 1.70 L D Magnesium 1.60 L Direct Bilirubin AST ALT Alkaline Phosphatase Lactate Dehydrogenase Troponin T C-Reactive Protein Total Protein Albumin Prealbumin Triglycerides Cholesterol LDL Cholesterol Direct HDL Cholesterol 25-OH Vitamin D Total PTH Intact Urine pH Urine WBC (Auto) Urine Creatinine Urine Total Protein Fluid Total Protein Vancomycin Trough Rheumatoid Factor Complement C4 Miscellaneous Test Crossmatch 02/15/17 02/15/17 02/15/17 06:06 11:31 17:52 WBC RBC Hgb Hct MCV MCH MCHC RDW Plt Count Lymph % (Auto) [place] % (Auto) Lymph # [place] # Baso # Seg Neutrophils % Seg Neuts % (Manual) Lymphocytes % (Manual) Monocytes % (Manual) Eosinophils % (Manual) Basophils % (Manual) Nucleated RBC % Seg Neutrophils # Seg Neutrophils # Man Lymphocytes # (Manual) Monocytes # (Manual) Eosinophils # (Manual) Basophils # (Manual) PT INR Fibrinogen dRVVT Confirm Interp Factor V Activity POC ABG pH POC ABG pCO2 POC ABG pO2 ABG pO2 ABG HCO3 ABG Base Excess ABG Hemoglobin Oxyhemoglobin Sodium Potassium Chloride Carbon Dioxide BUN Creatinine Glucose POC Glucose 115 H 129 H 201 H Lactic Acid Calcium Ionized Calcium Phosphorus Magnesium Direct Bilirubin AST ALT Alkaline Phosphatase Lactate Dehydrogenase Troponin T C-Reactive Protein Total Protein Albumin Prealbumin Triglycerides Cholesterol LDL Cholesterol Direct HDL Cholesterol 25-OH Vitamin D Total PTH Intact Urine pH Urine WBC (Auto) Urine Creatinine Urine Total Protein Fluid Total Protein Vancomycin Trough Rheumatoid Factor Complement C4 Miscellaneous Test Crossmatch 02/15/17 02/15/17 02/15/17 19:08 19:08 19:08 WBC RBC Hgb Hct MCV MCH MCHC RDW Plt Count Lymph % (Auto) [place] % (Auto) Lymph # [place] # Baso # Seg Neutrophils % Seg Neuts % (Manual) Lymphocytes % (Manual) Monocytes % (Manual) Eosinophils % (Manual) Basophils % (Manual) Nucleated RBC % Seg Neutrophils # Seg Neutrophils # Man Lymphocytes # (Manual) Monocytes # (Manual) Eosinophils # (Manual) Basophils # (Manual) PT INR Fibrinogen dRVVT Confirm Interp Factor V Activity POC ABG pH POC ABG pCO2 POC ABG pO2 ABG pO2 ABG HCO3 ABG Base Excess ABG Hemoglobin Oxyhemoglobin Sodium Potassium Chloride Carbon Dioxide BUN Creatinine Glucose POC Glucose Lactic Acid Calcium Ionized Calcium 6.0 H Phosphorus Magnesium Direct Bilirubin AST ALT Alkaline Phosphatase Lactate Dehydrogenase Troponin T C-Reactive Protein Total Protein Albumin Prealbumin Triglycerides Cholesterol LDL Cholesterol Direct HDL Cholesterol 25-OH Vitamin D Total 13 L PTH Intact 10.88 L Urine pH Urine WBC (Auto) Urine Creatinine Urine Total Protein Fluid Total Protein Vancomycin Trough Rheumatoid Factor Complement C4 Miscellaneous Test Crossmatch 02/16/17 02/16/17 02/16/17 05:12 06:00 12:39 WBC RBC Hgb Hct MCV MCH MCHC RDW Plt Count Lymph % (Auto) [place] % (Auto) Lymph # [place] # Baso # Seg Neutrophils % Seg Neuts % (Manual) Lymphocytes % (Manual) Monocytes % (Manual) Eosinophils % (Manual) Basophils % (Manual) Nucleated RBC % Seg Neutrophils # Seg Neutrophils # Man Lymphocytes # (Manual) Monocytes # (Manual) Eosinophils # (Manual) Basophils # (Manual) PT INR Fibrinogen dRVVT Confirm Interp Factor V Activity POC ABG pH POC ABG pCO2 POC ABG pO2 ABG pO2 ABG HCO3 ABG Base Excess ABG Hemoglobin Oxyhemoglobin Sodium Potassium Chloride Carbon Dioxide BUN 74 H Creatinine 1.7 H Glucose 102 H POC Glucose 125 H 109 H Lactic Acid Calcium Ionized Calcium Phosphorus 2.10 L D Magnesium Direct Bilirubin AST ALT Alkaline Phosphatase Lactate Dehydrogenase Troponin T C-Reactive Protein Total Protein Albumin Prealbumin Triglycerides Cholesterol LDL Cholesterol Direct HDL Cholesterol 25-OH Vitamin D Total PTH Intact Urine pH Urine WBC (Auto) Urine Creatinine Urine Total Protein Fluid Total Protein Vancomycin Trough Rheumatoid Factor Complement C4 Miscellaneous Test Crossmatch 02/16/17 02/16/17 02/17/17 17:31 23:57 05:30 WBC RBC Hgb Hct MCV MCH MCHC RDW Plt Count Lymph % (Auto) [place] % (Auto) Lymph # [place] # Baso # Seg Neutrophils % Seg Neuts % (Manual) Lymphocytes % (Manual) Monocytes % (Manual) Eosinophils % (Manual) Basophils % (Manual) Nucleated RBC % Seg Neutrophils # Seg Neutrophils # Man Lymphocytes # (Manual) Monocytes # (Manual) Eosinophils # (Manual) Basophils # (Manual) PT INR Fibrinogen dRVVT Confirm Interp Factor V Activity POC ABG pH POC ABG pCO2 POC ABG pO2 ABG pO2 ABG HCO3 ABG Base Excess ABG Hemoglobin Oxyhemoglobin Sodium Potassium Chloride Carbon Dioxide BUN Creatinine Glucose POC Glucose 106 H 127 H 122 H Lactic Acid Calcium Ionized Calcium Phosphorus Magnesium Direct Bilirubin AST ALT Alkaline Phosphatase Lactate Dehydrogenase Troponin T C-Reactive Protein Total Protein Albumin Prealbumin Triglycerides Cholesterol LDL Cholesterol Direct HDL Cholesterol 25-OH Vitamin D Total PTH Intact Urine pH Urine WBC (Auto) Urine Creatinine Urine Total Protein Fluid Total Protein Vancomycin Trough Rheumatoid Factor Complement C4 Miscellaneous Test Crossmatch 02/17/17 02/17/17 02/17/17 06:00 12:17 17:57 WBC RBC Hgb Hct MCV MCH MCHC RDW Plt Count Lymph % (Auto) [place] % (Auto) Lymph # [place] # Baso # Seg Neutrophils % Seg Neuts % (Manual) Lymphocytes % (Manual) Monocytes % (Manual) Eosinophils % (Manual) Basophils % (Manual) Nucleated RBC % Seg Neutrophils # Seg Neutrophils # Man Lymphocytes # (Manual) Monocytes # (Manual) Eosinophils # (Manual) Basophils # (Manual) PT INR Fibrinogen dRVVT Confirm Interp Factor V Activity POC ABG pH POC ABG pCO2 POC ABG pO2 ABG pO2 ABG HCO3 ABG Base Excess ABG Hemoglobin Oxyhemoglobin Sodium Potassium Chloride Carbon Dioxide BUN 94 H Creatinine 2.3 H Glucose 106 H POC Glucose 173 H 140 H Lactic Acid Calcium Ionized Calcium Phosphorus Magnesium Direct Bilirubin AST ALT Alkaline Phosphatase Lactate Dehydrogenase Troponin T C-Reactive Protein Total Protein Albumin Prealbumin Triglycerides Cholesterol LDL Cholesterol Direct HDL Cholesterol 25-OH Vitamin D Total PTH Intact Urine pH Urine WBC (Auto) Urine Creatinine Urine Total Protein Fluid Total Protein Vancomycin Trough Rheumatoid Factor Complement C4 Miscellaneous Test Crossmatch 02/18/17 02/18/17 02/18/17 00:20 05:30 06:14 WBC RBC Hgb Hct MCV MCH MCHC RDW Plt Count Lymph % (Auto) [place] % (Auto) Lymph # [place] # Baso # Seg Neutrophils % Seg Neuts % (Manual) Lymphocytes % (Manual) Monocytes % (Manual) Eosinophils % (Manual) Basophils % (Manual) Nucleated RBC % Seg Neutrophils # Seg Neutrophils # Man Lymphocytes # (Manual) Monocytes # (Manual) Eosinophils # (Manual) Basophils # (Manual) PT INR Fibrinogen dRVVT Confirm Interp Factor V Activity POC ABG pH POC ABG pCO2 POC ABG pO2 ABG pO2 ABG HCO3 ABG Base Excess ABG Hemoglobin Oxyhemoglobin Sodium 136 L Potassium Chloride 97.5 L Carbon Dioxide BUN 73 H Creatinine 1.9 H Glucose POC Glucose 132 H 106 H Lactic Acid Calcium Ionized Calcium Phosphorus Magnesium Direct Bilirubin AST ALT Alkaline Phosphatase Lactate Dehydrogenase Troponin T C-Reactive Protein Total Protein Albumin Prealbumin Triglycerides Cholesterol LDL Cholesterol Direct HDL Cholesterol 25-OH Vitamin D Total PTH Intact Urine pH Urine WBC (Auto) Urine Creatinine Urine Total Protein Fluid Total Protein Vancomycin Trough Rheumatoid Factor Complement C4 Miscellaneous Test Crossmatch 02/18/17 02/18/17 02/18/17 09:51 11:32 17:59 WBC 13.1 H RBC 2.77 L Hgb 7.6 L Hct 23.9 L MCV MCH MCHC RDW 19.0 H Plt Count Lymph % (Auto) [place] % (Auto) 11.1 H Lymph # [place] # 1.5 H Baso # Seg Neutrophils % Seg Neuts % (Manual) Lymphocytes % (Manual) Monocytes % (Manual) Eosinophils % (Manual) Basophils % (Manual) Nucleated RBC % Seg Neutrophils # 9.1 H Seg Neutrophils # Man Lymphocytes # (Manual) Monocytes # (Manual) Eosinophils # (Manual) Basophils # (Manual) PT INR Fibrinogen dRVVT Confirm Interp Factor V Activity POC ABG pH POC ABG pCO2 POC ABG pO2 ABG pO2 ABG HCO3 ABG Base Excess ABG Hemoglobin Oxyhemoglobin Sodium Potassium Chloride Carbon Dioxide BUN Creatinine Glucose POC Glucose 123 H 119 H Lactic Acid Calcium Ionized Calcium Phosphorus Magnesium Direct Bilirubin AST ALT Alkaline Phosphatase Lactate Dehydrogenase Troponin T C-Reactive Protein Total Protein Albumin Prealbumin Triglycerides Cholesterol LDL Cholesterol Direct HDL Cholesterol 25-OH Vitamin D Total PTH Intact Urine pH Urine WBC (Auto) Urine Creatinine Urine Total Protein Fluid Total Protein Vancomycin Trough Rheumatoid Factor Complement C4 Miscellaneous Test Crossmatch 02/18/17 02/19/17 02/19/17 23:47 05:36 09:45 WBC RBC Hgb Hct MCV MCH 27 L MCHC RDW 19.2 H Plt Count Lymph % (Auto) [place] % (Auto) Lymph # [place] # Baso # Seg Neutrophils % Seg Neuts % (Manual) Lymphocytes % (Manual) Monocytes % (Manual) Eosinophils % (Manual) Basophils % (Manual) Nucleated RBC % Seg Neutrophils # Seg Neutrophils # Man Lymphocytes # (Manual) Monocytes # (Manual) Eosinophils # (Manual) Basophils # (Manual) PT INR Fibrinogen dRVVT Confirm Interp Factor V Activity POC ABG pH POC ABG pCO2 POC ABG pO2 ABG pO2 ABG HCO3 ABG Base Excess ABG Hemoglobin Oxyhemoglobin Sodium Potassium Chloride Carbon Dioxide BUN Creatinine Glucose POC Glucose 110 H 121 H Lactic Acid Calcium Ionized Calcium Phosphorus Magnesium Direct Bilirubin AST ALT Alkaline Phosphatase Lactate Dehydrogenase Troponin T C-Reactive Protein Total Protein Albumin Prealbumin Triglycerides Cholesterol LDL Cholesterol Direct HDL Cholesterol 25-OH Vitamin D Total PTH Intact Urine pH Urine WBC (Auto) Urine Creatinine Urine Total Protein Fluid Total Protein Vancomycin Trough Rheumatoid Factor Complement C4 Miscellaneous Test Crossmatch 02/19/17 02/20/17 02/20/17 09:45 00:10 06:15 WBC RBC Hgb Hct MCV MCH MCHC RDW Plt Count Lymph % (Auto) [place] % (Auto) Lymph # [place] # Baso # Seg Neutrophils % Seg Neuts % (Manual) Lymphocytes % (Manual) Monocytes % (Manual) Eosinophils % (Manual) Basophils % (Manual) Nucleated RBC % Seg Neutrophils # Seg Neutrophils # Man Lymphocytes # (Manual) Monocytes # (Manual) Eosinophils # (Manual) Basophils # (Manual) PT INR Fibrinogen dRVVT Confirm Interp Factor V Activity POC ABG pH POC ABG pCO2 POC ABG pO2 ABG pO2 ABG HCO3 ABG Base Excess ABG Hemoglobin Oxyhemoglobin Sodium 136 L Potassium 5.1 H Chloride 97.6 L Carbon Dioxide 20 L 18 L BUN 110 H 135 H Creatinine 2.6 H 3.2 H Glucose 106 H 110 H POC Glucose 117 H Lactic Acid Calcium Ionized Calcium Phosphorus 4.70 H D 5.60 H Magnesium Direct Bilirubin AST ALT Alkaline Phosphatase Lactate Dehydrogenase Troponin T C-Reactive Protein Total Protein Albumin Prealbumin Triglycerides Cholesterol LDL Cholesterol Direct HDL Cholesterol 25-OH Vitamin D Total PTH Intact Urine pH Urine WBC (Auto) Urine Creatinine Urine Total Protein Fluid Total Protein Vancomycin Trough Rheumatoid Factor Complement C4 Miscellaneous Test Crossmatch 02/20/17 02/20/17 02/21/17 11:30 17:51 00:14 WBC RBC Hgb Hct MCV MCH MCHC RDW Plt Count Lymph % (Auto) [place] % (Auto) Lymph # [place] # Baso # Seg Neutrophils % Seg Neuts % (Manual) Lymphocytes % (Manual) Monocytes % (Manual) Eosinophils % (Manual) Basophils % (Manual) Nucleated RBC % Seg Neutrophils # Seg Neutrophils # Man Lymphocytes # (Manual) Monocytes # (Manual) Eosinophils # (Manual) Basophils # (Manual) PT INR Fibrinogen dRVVT Confirm Interp Factor V Activity POC ABG pH POC ABG pCO2 POC ABG pO2 ABG pO2 ABG HCO3 ABG Base Excess ABG Hemoglobin Oxyhemoglobin Sodium Potassium Chloride Carbon Dioxide BUN Creatinine Glucose POC Glucose 173 H 133 H 125 H Lactic Acid Calcium Ionized Calcium Phosphorus Magnesium Direct Bilirubin AST ALT Alkaline Phosphatase Lactate Dehydrogenase Troponin T C-Reactive Protein Total Protein Albumin Prealbumin Triglycerides Cholesterol LDL Cholesterol Direct HDL Cholesterol 25-OH Vitamin D Total PTH Intact Urine pH Urine WBC (Auto) Urine Creatinine Urine Total Protein Fluid Total Protein Vancomycin Trough Rheumatoid Factor Complement C4 Miscellaneous Test Crossmatch 02/21/17 02/21/17 02/21/17 04:09 05:03 11:58 WBC RBC Hgb Hct MCV MCH MCHC RDW Plt Count Lymph % (Auto) [place] % (Auto) Lymph # [place] # Baso # Seg Neutrophils % Seg Neuts % (Manual) Lymphocytes % (Manual) Monocytes % (Manual) Eosinophils % (Manual) Basophils % (Manual) Nucleated RBC % Seg Neutrophils # Seg Neutrophils # Man Lymphocytes # (Manual) Monocytes # (Manual) Eosinophils # (Manual) Basophils # (Manual) PT INR Fibrinogen dRVVT Confirm Interp Factor V Activity POC ABG pH POC ABG pCO2 POC ABG pO2 ABG pO2 ABG HCO3 ABG Base Excess ABG Hemoglobin Oxyhemoglobin Sodium 135 L Potassium Chloride Carbon Dioxide 20 L BUN 76 H Creatinine 2.0 H Glucose 125 H POC Glucose 134 H 139 H Lactic Acid Calcium Ionized Calcium Phosphorus Magnesium Direct Bilirubin AST ALT Alkaline Phosphatase Lactate Dehydrogenase Troponin T C-Reactive Protein Total Protein Albumin Prealbumin Triglycerides Cholesterol LDL Cholesterol Direct HDL Cholesterol 25-OH Vitamin D Total PTH Intact Urine pH Urine WBC (Auto) Urine Creatinine Urine Total Protein Fluid Total Protein Vancomycin Trough Rheumatoid Factor Complement C4 Miscellaneous Test Crossmatch 02/21/17 02/21/17 02/22/17 17:16 23:41 04:10 WBC RBC Hgb Hct MCV MCH MCHC RDW Plt Count Lymph % (Auto) [place] % (Auto) Lymph # [place] # Baso # Seg Neutrophils % Seg Neuts % (Manual) Lymphocytes % (Manual) Monocytes % (Manual) Eosinophils % (Manual) Basophils % (Manual) Nucleated RBC % Seg Neutrophils # Seg Neutrophils # Man Lymphocytes # (Manual) Monocytes # (Manual) Eosinophils # (Manual) Basophils # (Manual) PT INR Fibrinogen dRVVT Confirm Interp Factor V Activity POC ABG pH POC ABG pCO2 POC ABG pO2 ABG pO2 ABG HCO3 ABG Base Excess ABG Hemoglobin Oxyhemoglobin Sodium 135 L Potassium Chloride 97.7 L Carbon Dioxide 21 L BUN 101 H Creatinine 2.5 H Glucose 116 H POC Glucose 120 H 128 H Lactic Acid Calcium Ionized Calcium Phosphorus Magnesium Direct Bilirubin AST ALT Alkaline Phosphatase Lactate Dehydrogenase Troponin T C-Reactive Protein Total Protein Albumin 1.3 L Prealbumin Triglycerides Cholesterol LDL Cholesterol Direct HDL Cholesterol 25-OH Vitamin D Total PTH Intact Urine pH Urine WBC (Auto) Urine Creatinine Urine Total Protein Fluid Total Protein Vancomycin Trough Rheumatoid Factor Complement C4 Miscellaneous Test Crossmatch 02/22/17 02/22/17 02/22/17 06:03 11:38 18:19 WBC RBC Hgb Hct MCV MCH MCHC RDW Plt Count Lymph % (Auto) [place] % (Auto) Lymph # [place] # Baso # Seg Neutrophils % Seg Neuts % (Manual) Lymphocytes % (Manual) Monocytes % (Manual) Eosinophils % (Manual) Basophils % (Manual) Nucleated RBC % Seg Neutrophils # Seg Neutrophils # Man Lymphocytes # (Manual) Monocytes # (Manual) Eosinophils # (Manual) Basophils # (Manual) PT INR Fibrinogen dRVVT Confirm Interp Factor V Activity POC ABG pH POC ABG pCO2 POC ABG pO2 ABG pO2 ABG HCO3 ABG Base Excess ABG Hemoglobin Oxyhemoglobin Sodium Potassium Chloride Carbon Dioxide BUN Creatinine Glucose POC Glucose 126 H 147 H 121 H Lactic Acid Calcium Ionized Calcium Phosphorus Magnesium Direct Bilirubin AST ALT Alkaline Phosphatase Lactate Dehydrogenase Troponin T C-Reactive Protein Total Protein Albumin Prealbumin Triglycerides Cholesterol LDL Cholesterol Direct HDL Cholesterol 25-OH Vitamin D Total PTH Intact Urine pH Urine WBC (Auto) Urine Creatinine Urine Total Protein Fluid Total Protein Vancomycin Trough Rheumatoid Factor Complement C4 Miscellaneous Test Crossmatch 02/23/17 02/23/17 02/23/17 05:00 05:46 12:27 WBC RBC Hgb Hct MCV MCH MCHC RDW Plt Count Lymph % (Auto) [place] % (Auto) Lymph # [place] # Baso # Seg Neutrophils % Seg Neuts % (Manual) Lymphocytes % (Manual) Monocytes % (Manual) Eosinophils % (Manual) Basophils % (Manual) Nucleated RBC % Seg Neutrophils # Seg Neutrophils # Man Lymphocytes # (Manual) Monocytes # (Manual) Eosinophils # (Manual) Basophils # (Manual) PT INR Fibrinogen dRVVT Confirm Interp Factor V Activity POC ABG pH POC ABG pCO2 POC ABG pO2 ABG pO2 ABG HCO3 ABG Base Excess ABG Hemoglobin Oxyhemoglobin Sodium 136 L Potassium Chloride 97.1 L Carbon Dioxide BUN 50 H Creatinine 1.5 H Glucose POC Glucose 110 H 115 H Lactic Acid Calcium 8.1 L Ionized Calcium Phosphorus 1.90 L D Magnesium Direct Bilirubin AST ALT Alkaline Phosphatase Lactate Dehydrogenase Troponin T C-Reactive Protein Total Protein Albumin Prealbumin Triglycerides Cholesterol LDL Cholesterol Direct HDL Cholesterol 25-OH Vitamin D Total PTH Intact Urine pH Urine WBC (Auto) Urine Creatinine Urine Total Protein Fluid Total Protein Vancomycin Trough Rheumatoid Factor Complement C4 Miscellaneous Test Crossmatch 02/23/17 02/23/17 02/24/17 18:02 23:18 05:04 WBC RBC Hgb Hct MCV MCH MCHC RDW Plt Count Lymph % (Auto) [place] % (Auto) Lymph # [place] # Baso # Seg Neutrophils % Seg Neuts % (Manual) Lymphocytes % (Manual) Monocytes % (Manual) Eosinophils % (Manual) Basophils % (Manual) Nucleated RBC % Seg Neutrophils # Seg Neutrophils # Man Lymphocytes # (Manual) Monocytes # (Manual) Eosinophils # (Manual) Basophils # (Manual) PT INR Fibrinogen dRVVT Confirm Interp Factor V Activity POC ABG pH POC ABG pCO2 POC ABG pO2 ABG pO2 ABG HCO3 ABG Base Excess ABG Hemoglobin Oxyhemoglobin Sodium Potassium Chloride Carbon Dioxide BUN Creatinine Glucose POC Glucose 111 H 126 H 121 H Lactic Acid Calcium Ionized Calcium Phosphorus Magnesium Direct Bilirubin AST ALT Alkaline Phosphatase Lactate Dehydrogenase Troponin T C-Reactive Protein Total Protein Albumin Prealbumin Triglycerides Cholesterol LDL Cholesterol Direct HDL Cholesterol 25-OH Vitamin D Total PTH Intact Urine pH Urine WBC (Auto) Urine Creatinine Urine Total Protein Fluid Total Protein Vancomycin Trough Rheumatoid Factor Complement C4 Miscellaneous Test Crossmatch 02/24/17 02/24/17 02/24/17 05:20 10:05 11:34 WBC RBC 2.95 L Hgb 8.4 L Hct 25.7 L MCV MCH MCHC RDW 20.8 H Plt Count Lymph % (Auto) [place] % (Auto) Lymph # [place] # Baso # Seg Neutrophils % 71.8 H Seg Neuts % (Manual) Lymphocytes % (Manual) Monocytes % (Manual) Eosinophils % (Manual) Basophils % (Manual) Nucleated RBC % Seg Neutrophils # Seg Neutrophils # Man Lymphocytes # (Manual) Monocytes # (Manual) Eosinophils # (Manual) Basophils # (Manual) PT INR Fibrinogen dRVVT Confirm Interp Factor V Activity POC ABG pH POC ABG pCO2 POC ABG pO2 ABG pO2 ABG HCO3 ABG Base Excess ABG Hemoglobin Oxyhemoglobin Sodium 136 L Potassium Chloride 95.5 L Carbon Dioxide BUN 76 H Creatinine 2.2 H Glucose 109 H POC Glucose 123 H Lactic Acid Calcium Ionized Calcium Phosphorus Magnesium Direct Bilirubin AST ALT Alkaline Phosphatase Lactate Dehydrogenase Troponin T C-Reactive Protein Total Protein Albumin Prealbumin Triglycerides Cholesterol LDL Cholesterol Direct HDL Cholesterol 25-OH Vitamin D Total PTH Intact Urine pH Urine WBC (Auto) Urine Creatinine Urine Total Protein Fluid Total Protein Vancomycin Trough Rheumatoid Factor Complement C4 Miscellaneous Test Crossmatch 02/24/17 02/24/17 02/25/17 17:43 23:02 05:00 WBC RBC Hgb Hct MCV MCH MCHC RDW Plt Count Lymph % (Auto) [place] % (Auto) Lymph # [place] # Baso # Seg Neutrophils % Seg Neuts % (Manual) Lymphocytes % (Manual) Monocytes % (Manual) Eosinophils % (Manual) Basophils % (Manual) Nucleated RBC % Seg Neutrophils # Seg Neutrophils # Man Lymphocytes # (Manual) Monocytes # (Manual) Eosinophils # (Manual) Basophils # (Manual) PT INR Fibrinogen dRVVT Confirm Interp Factor V Activity POC ABG pH POC ABG pCO2 POC ABG pO2 ABG pO2 ABG HCO3 ABG Base Excess ABG Hemoglobin Oxyhemoglobin Sodium Potassium Chloride 96.8 L Carbon Dioxide BUN 94 H Creatinine 2.8 H Glucose 118 H POC Glucose 128 H 144 H Lactic Acid Calcium Ionized Calcium Phosphorus Magnesium Direct Bilirubin AST ALT Alkaline Phosphatase Lactate Dehydrogenase Troponin T C-Reactive Protein Total Protein Albumin Prealbumin Triglycerides Cholesterol LDL Cholesterol Direct HDL Cholesterol 25-OH Vitamin D Total PTH Intact Urine pH Urine WBC (Auto) Urine Creatinine Urine Total Protein Fluid Total Protein Vancomycin Trough Rheumatoid Factor Complement C4 Miscellaneous Test Crossmatch 02/25/17 02/25/17 02/25/17 05:32 11:44 18:18 WBC RBC Hgb Hct MCV MCH MCHC RDW Plt Count Lymph % (Auto) [place] % (Auto) Lymph # [place] # Baso # Seg Neutrophils % Seg Neuts % (Manual) Lymphocytes % (Manual) Monocytes % (Manual) Eosinophils % (Manual) Basophils % (Manual) Nucleated RBC % Seg Neutrophils # Seg Neutrophils # Man Lymphocytes # (Manual) Monocytes # (Manual) Eosinophils # (Manual) Basophils # (Manual) PT INR Fibrinogen dRVVT Confirm Interp Factor V Activity POC ABG pH POC ABG pCO2 POC ABG pO2 ABG pO2 ABG HCO3 ABG Base Excess ABG Hemoglobin Oxyhemoglobin Sodium Potassium Chloride Carbon Dioxide BUN Creatinine Glucose POC Glucose 118 H 106 H 210 H Lactic Acid Calcium Ionized Calcium Phosphorus Magnesium Direct Bilirubin AST ALT Alkaline Phosphatase Lactate Dehydrogenase Troponin T C-Reactive Protein Total Protein Albumin Prealbumin Triglycerides Cholesterol LDL Cholesterol Direct HDL Cholesterol 25-OH Vitamin D Total PTH Intact Urine pH Urine WBC (Auto) Urine Creatinine Urine Total Protein Fluid Total Protein Vancomycin Trough Rheumatoid Factor Complement C4 Miscellaneous Test Crossmatch 02/26/17 02/26/17 02/26/17 00:07 05:14 12:07 WBC RBC Hgb Hct MCV MCH MCHC RDW Plt Count Lymph % (Auto) [place] % (Auto) Lymph # [place] # Baso # Seg Neutrophils % Seg Neuts % (Manual) Lymphocytes % (Manual) Monocytes % (Manual) Eosinophils % (Manual) Basophils % (Manual) Nucleated RBC % Seg Neutrophils # Seg Neutrophils # Man Lymphocytes # (Manual) Monocytes # (Manual) Eosinophils # (Manual) Basophils # (Manual) PT INR Fibrinogen dRVVT Confirm Interp Factor V Activity POC ABG pH POC ABG pCO2 POC ABG pO2 ABG pO2 ABG HCO3 ABG Base Excess ABG Hemoglobin Oxyhemoglobin Sodium Potassium Chloride Carbon Dioxide BUN Creatinine Glucose POC Glucose 136 H 142 H 132 H Lactic Acid Calcium Ionized Calcium Phosphorus Magnesium Direct Bilirubin AST ALT Alkaline Phosphatase Lactate Dehydrogenase Troponin T C-Reactive Protein Total Protein Albumin Prealbumin Triglycerides Cholesterol LDL Cholesterol Direct HDL Cholesterol 25-OH Vitamin D Total PTH Intact Urine pH Urine WBC (Auto) Urine Creatinine Urine Total Protein Fluid Total Protein Vancomycin Trough Rheumatoid Factor Complement C4 Miscellaneous Test Crossmatch 02/26/17 02/26/17 02/27/17 18:35 23:54 06:25 WBC RBC Hgb Hct MCV MCH MCHC RDW Plt Count Lymph % (Auto) [place] % (Auto) Lymph # [place] # Baso # Seg Neutrophils % Seg Neuts % (Manual) Lymphocytes % (Manual) Monocytes % (Manual) Eosinophils % (Manual) Basophils % (Manual) Nucleated RBC % Seg Neutrophils # Seg Neutrophils # Man Lymphocytes # (Manual) Monocytes # (Manual) Eosinophils # (Manual) Basophils # (Manual) PT INR Fibrinogen dRVVT Confirm Interp Factor V Activity POC ABG pH POC ABG pCO2 POC ABG pO2 ABG pO2 ABG HCO3 ABG Base Excess ABG Hemoglobin Oxyhemoglobin Sodium Potassium Chloride Carbon Dioxide BUN Creatinine Glucose POC Glucose 155 H 150 H 138 H Lactic Acid Calcium Ionized Calcium Phosphorus Magnesium Direct Bilirubin AST ALT Alkaline Phosphatase Lactate Dehydrogenase Troponin T C-Reactive Protein Total Protein Albumin Prealbumin Triglycerides Cholesterol LDL Cholesterol Direct HDL Cholesterol 25-OH Vitamin D Total PTH Intact Urine pH Urine WBC (Auto) Urine Creatinine Urine Total Protein Fluid Total Protein Vancomycin Trough Rheumatoid Factor Complement C4 Miscellaneous Test Crossmatch 02/27/17 02/27/17 02/27/17 08:50 11:50 17:38 WBC RBC Hgb Hct MCV MCH MCHC RDW Plt Count Lymph % (Auto) [place] % (Auto) Lymph # [place] # Baso # Seg Neutrophils % Seg Neuts % (Manual) Lymphocytes % (Manual) Monocytes % (Manual) Eosinophils % (Manual) Basophils % (Manual) Nucleated RBC % Seg Neutrophils # Seg Neutrophils # Man Lymphocytes # (Manual) Monocytes # (Manual) Eosinophils # (Manual) Basophils # (Manual) PT INR Fibrinogen dRVVT Confirm Interp Factor V Activity POC ABG pH POC ABG pCO2 POC ABG pO2 ABG pO2 ABG HCO3 ABG Base Excess ABG Hemoglobin Oxyhemoglobin Sodium Potassium 3.2 L Chloride Carbon Dioxide BUN 95 H Creatinine 2.7 H Glucose 179 H POC Glucose 150 H 133 H Lactic Acid Calcium Ionized Calcium Phosphorus Magnesium Direct Bilirubin AST ALT Alkaline Phosphatase Lactate Dehydrogenase Troponin T C-Reactive Protein Total Protein Albumin Prealbumin Triglycerides Cholesterol LDL Cholesterol Direct HDL Cholesterol 25-OH Vitamin D Total PTH Intact Urine pH Urine WBC (Auto) Urine Creatinine Urine Total Protein Fluid Total Protein Vancomycin Trough Rheumatoid Factor Complement C4 Miscellaneous Test Crossmatch 02/27/17 02/28/17 02/28/17 23:55 05:23 06:10 WBC RBC Hgb Hct MCV MCH MCHC RDW Plt Count Lymph % (Auto) [place] % (Auto) Lymph # [place] # Baso # Seg Neutrophils % Seg Neuts % (Manual) Lymphocytes % (Manual) Monocytes % (Manual) Eosinophils % (Manual) Basophils % (Manual) Nucleated RBC % Seg Neutrophils # Seg Neutrophils # Man Lymphocytes # (Manual) Monocytes # (Manual) Eosinophils # (Manual) Basophils # (Manual) PT INR Fibrinogen dRVVT Confirm Interp Factor V Activity POC ABG pH POC ABG pCO2 POC ABG pO2 ABG pO2 ABG HCO3 ABG Base Excess ABG Hemoglobin Oxyhemoglobin Sodium 134 L Potassium 3.0 L Chloride 94.9 L Carbon Dioxide BUN 53 H Creatinine 1.9 H Glucose 138 H POC Glucose 134 H 164 H Lactic Acid Calcium Ionized Calcium Phosphorus 2.00 L D Magnesium Direct Bilirubin AST ALT Alkaline Phosphatase Lactate Dehydrogenase Troponin T C-Reactive Protein Total Protein Albumin Prealbumin Triglycerides Cholesterol LDL Cholesterol Direct HDL Cholesterol 25-OH Vitamin D Total PTH Intact Urine pH Urine WBC (Auto) Urine Creatinine Urine Total Protein Fluid Total Protein Vancomycin Trough Rheumatoid Factor Complement C4 Miscellaneous Test Crossmatch 02/28/17 02/28/17 02/28/17 12:18 17:54 23:47 WBC RBC Hgb Hct MCV MCH MCHC RDW Plt Count Lymph % (Auto) [place] % (Auto) Lymph # [place] # Baso # Seg Neutrophils % Seg Neuts % (Manual) Lymphocytes % (Manual) Monocytes % (Manual) Eosinophils % (Manual) Basophils % (Manual) Nucleated RBC % Seg Neutrophils # Seg Neutrophils # Man Lymphocytes # (Manual) Monocytes # (Manual) Eosinophils # (Manual) Basophils # (Manual) PT INR Fibrinogen dRVVT Confirm Interp Factor V Activity POC ABG pH POC ABG pCO2 POC ABG pO2 ABG pO2 ABG HCO3 ABG Base Excess ABG Hemoglobin Oxyhemoglobin Sodium Potassium Chloride Carbon Dioxide BUN Creatinine Glucose POC Glucose 135 H 140 H 144 H Lactic Acid Calcium Ionized Calcium Phosphorus Magnesium Direct Bilirubin AST ALT Alkaline Phosphatase Lactate Dehydrogenase Troponin T C-Reactive Protein Total Protein Albumin Prealbumin Triglycerides Cholesterol LDL Cholesterol Direct HDL Cholesterol 25-OH Vitamin D Total PTH Intact Urine pH Urine WBC (Auto) Urine Creatinine Urine Total Protein Fluid Total Protein Vancomycin Trough Rheumatoid Factor Complement C4 Miscellaneous Test Crossmatch 03/01/17 03/01/17 03/01/17 04:00 12:02 17:13 WBC RBC Hgb Hct MCV MCH MCHC RDW Plt Count Lymph % (Auto) [place] % (Auto) Lymph # [place] # Baso # Seg Neutrophils % Seg Neuts % (Manual) Lymphocytes % (Manual) Monocytes % (Manual) Eosinophils % (Manual) Basophils % (Manual) Nucleated RBC % Seg Neutrophils # Seg Neutrophils # Man Lymphocytes # (Manual) Monocytes # (Manual) Eosinophils # (Manual) Basophils # (Manual) PT INR Fibrinogen dRVVT Confirm Interp Factor V Activity POC ABG pH POC ABG pCO2 POC ABG pO2 ABG pO2 ABG HCO3 ABG Base Excess ABG Hemoglobin Oxyhemoglobin Sodium Potassium 3.0 L Chloride 97.0 L Carbon Dioxide BUN 81 H Creatinine 2.6 H Glucose 121 H POC Glucose 165 H 126 H Lactic Acid Calcium Ionized Calcium Phosphorus Magnesium Direct Bilirubin AST ALT Alkaline Phosphatase Lactate Dehydrogenase Troponin T C-Reactive Protein Total Protein Albumin Prealbumin Triglycerides Cholesterol LDL Cholesterol Direct HDL Cholesterol 25-OH Vitamin D Total PTH Intact Urine pH Urine WBC (Auto) Urine Creatinine Urine Total Protein Fluid Total Protein Vancomycin Trough Rheumatoid Factor Complement C4 Miscellaneous Test Crossmatch 03/02/17 03/02/17 03/02/17 00:10 03:05 05:20 WBC RBC Hgb Hct MCV MCH MCHC RDW Plt Count Lymph % (Auto) [place] % (Auto) Lymph # [place] # Baso # Seg Neutrophils % Seg Neuts % (Manual) Lymphocytes % (Manual) Monocytes % (Manual) Eosinophils % (Manual) Basophils % (Manual) Nucleated RBC % Seg Neutrophils # Seg Neutrophils # Man Lymphocytes # (Manual) Monocytes # (Manual) Eosinophils # (Manual) Basophils # (Manual) PT INR Fibrinogen dRVVT Confirm Interp Factor V Activity POC ABG pH POC ABG pCO2 POC ABG pO2 ABG pO2 ABG HCO3 ABG Base Excess ABG Hemoglobin Oxyhemoglobin Sodium Potassium 3.0 L Chloride Carbon Dioxide BUN 41 H Creatinine 1.6 H Glucose 130 H POC Glucose 129 H 173 H Lactic Acid Calcium Ionized Calcium Phosphorus 1.70 L D Magnesium 1.40 L Direct Bilirubin AST ALT Alkaline Phosphatase Lactate Dehydrogenase Troponin T C-Reactive Protein Total Protein Albumin Prealbumin Triglycerides Cholesterol LDL Cholesterol Direct HDL Cholesterol 25-OH Vitamin D Total PTH Intact Urine pH Urine WBC (Auto) Urine Creatinine Urine Total Protein Fluid Total Protein Vancomycin Trough Rheumatoid Factor Complement C4 Miscellaneous Test Crossmatch 03/02/17 03/02/17 03/02/17 11:49 16:38 23:46 WBC RBC Hgb Hct MCV MCH MCHC RDW Plt Count Lymph % (Auto) [place] % (Auto) Lymph # [place] # Baso # Seg Neutrophils % Seg Neuts % (Manual) Lymphocytes % (Manual) Monocytes % (Manual) Eosinophils % (Manual) Basophils % (Manual) Nucleated RBC % Seg Neutrophils # Seg Neutrophils # Man Lymphocytes # (Manual) Monocytes # (Manual) Eosinophils # (Manual) Basophils # (Manual) PT INR Fibrinogen dRVVT Confirm Interp Factor V Activity POC ABG pH POC ABG pCO2 POC ABG pO2 ABG pO2 ABG HCO3 ABG Base Excess ABG Hemoglobin Oxyhemoglobin Sodium Potassium Chloride Carbon Dioxide BUN Creatinine Glucose POC Glucose 129 H 141 H 119 H Lactic Acid Calcium Ionized Calcium Phosphorus Magnesium Direct Bilirubin AST ALT Alkaline Phosphatase Lactate Dehydrogenase Troponin T C-Reactive Protein Total Protein Albumin Prealbumin Triglycerides Cholesterol LDL Cholesterol Direct HDL Cholesterol 25-OH Vitamin D Total PTH Intact Urine pH Urine WBC (Auto) Urine Creatinine Urine Total Protein Fluid Total Protein Vancomycin Trough Rheumatoid Factor Complement C4 Miscellaneous Test Crossmatch 03/03/17 03/03/17 03/03/17 04:00 11:59 18:08 WBC RBC Hgb Hct MCV MCH MCHC RDW Plt Count Lymph % (Auto) [place] % (Auto) Lymph # [place] # Baso # Seg Neutrophils % Seg Neuts % (Manual) Lymphocytes % (Manual) Monocytes % (Manual) Eosinophils % (Manual) Basophils % (Manual) Nucleated RBC % Seg Neutrophils # Seg Neutrophils # Man Lymphocytes # (Manual) Monocytes # (Manual) Eosinophils # (Manual) Basophils # (Manual) PT INR Fibrinogen dRVVT Confirm Interp Factor V Activity POC ABG pH POC ABG pCO2 POC ABG pO2 ABG pO2 ABG HCO3 ABG Base Excess ABG Hemoglobin Oxyhemoglobin Sodium Potassium Chloride Carbon Dioxide BUN 70 H Creatinine 2.3 H Glucose POC Glucose 125 H 131 H Lactic Acid Calcium Ionized Calcium Phosphorus Magnesium Direct Bilirubin AST ALT Alkaline Phosphatase Lactate Dehydrogenase Troponin T C-Reactive Protein Total Protein Albumin Prealbumin Triglycerides Cholesterol LDL Cholesterol Direct HDL Cholesterol 25-OH Vitamin D Total PTH Intact Urine pH Urine WBC (Auto) Urine Creatinine Urine Total Protein Fluid Total Protein Vancomycin Trough Rheumatoid Factor Complement C4 Miscellaneous Test Crossmatch 03/03/17 03/03/17 03/04/17 20:17 23:43 05:21 WBC RBC Hgb Hct MCV MCH MCHC RDW Plt Count Lymph % (Auto) [place] % (Auto) Lymph # [place] # Baso # Seg Neutrophils % Seg Neuts % (Manual) Lymphocytes % (Manual) Monocytes % (Manual) Eosinophils % (Manual) Basophils % (Manual) Nucleated RBC % Seg Neutrophils # Seg Neutrophils # Man Lymphocytes # (Manual) Monocytes # (Manual) Eosinophils # (Manual) Basophils # (Manual) PT INR Fibrinogen dRVVT Confirm Interp Factor V Activity POC ABG pH 7.518 H POC ABG pCO2 28.8 L POC ABG pO2 61 L ABG pO2 ABG HCO3 ABG Base Excess ABG Hemoglobin Oxyhemoglobin Sodium Potassium Chloride Carbon Dioxide BUN Creatinine Glucose POC Glucose 122 H 130 H Lactic Acid Calcium Ionized Calcium Phosphorus Magnesium Direct Bilirubin AST ALT Alkaline Phosphatase Lactate Dehydrogenase Troponin T C-Reactive Protein Total Protein Albumin Prealbumin Triglycerides Cholesterol LDL Cholesterol Direct HDL Cholesterol 25-OH Vitamin D Total PTH Intact Urine pH Urine WBC (Auto) Urine Creatinine Urine Total Protein Fluid Total Protein Vancomycin Trough Rheumatoid Factor Complement C4 Miscellaneous Test Crossmatch 03/04/17 03/05/17 03/06/17 06:10 06:15 03:52 WBC RBC Hgb Hct MCV MCH MCHC RDW Plt Count Lymph % (Auto) [place] % (Auto) Lymph # [place] # Baso # Seg Neutrophils % Seg Neuts % (Manual) Lymphocytes % (Manual) Monocytes % (Manual) Eosinophils % (Manual) Basophils % (Manual) Nucleated RBC % Seg Neutrophils # Seg Neutrophils # Man Lymphocytes # (Manual) Monocytes # (Manual) Eosinophils # (Manual) Basophils # (Manual) PT INR Fibrinogen dRVVT Confirm Interp Factor V Activity POC ABG pH POC ABG pCO2 POC ABG pO2 ABG pO2 ABG HCO3 ABG Base Excess ABG Hemoglobin Oxyhemoglobin Sodium 135 L 136 L Potassium 5.2 H 5.9 H Chloride 95.8 L 97.7 L 96.0 L Carbon Dioxide 21 L 21 L BUN 40 H 56 H 70 H Creatinine 1.7 H 2.4 H 3.0 H Glucose 118 H POC Glucose Lactic Acid Calcium Ionized Calcium Phosphorus 4.80 H D 6.00 H D Magnesium 2.60 H Direct Bilirubin AST ALT Alkaline Phosphatase 165 H Lactate Dehydrogenase Troponin T C-Reactive Protein Total Protein Albumin 1.5 L Prealbumin Triglycerides Cholesterol LDL Cholesterol Direct HDL Cholesterol 25-OH Vitamin D Total PTH Intact Urine pH Urine WBC (Auto) Urine Creatinine Urine Total Protein Fluid Total Protein Vancomycin Trough Rheumatoid Factor Complement C4 Miscellaneous Test Crossmatch 03/06/17 03/06/17 03/06/17 11:19 18:40 23:39 WBC RBC Hgb Hct MCV MCH MCHC RDW Plt Count Lymph % (Auto) [place] % (Auto) Lymph # [place] # Baso # Seg Neutrophils % Seg Neuts % (Manual) Lymphocytes % (Manual) Monocytes % (Manual) Eosinophils % (Manual) Basophils % (Manual) Nucleated RBC % Seg Neutrophils # Seg Neutrophils # Man Lymphocytes # (Manual) Monocytes # (Manual) Eosinophils # (Manual) Basophils # (Manual) PT INR Fibrinogen dRVVT Confirm Interp Factor V Activity POC ABG pH POC ABG pCO2 POC ABG pO2 ABG pO2 ABG HCO3 ABG Base Excess ABG Hemoglobin Oxyhemoglobin Sodium Potassium Chloride Carbon Dioxide BUN Creatinine Glucose POC Glucose 108 H 110 H 156 H Lactic Acid Calcium Ionized Calcium Phosphorus Magnesium Direct Bilirubin AST ALT Alkaline Phosphatase Lactate Dehydrogenase Troponin T C-Reactive Protein Total Protein Albumin Prealbumin Triglycerides Cholesterol LDL Cholesterol Direct HDL Cholesterol 25-OH Vitamin D Total PTH Intact Urine pH Urine WBC (Auto) Urine Creatinine Urine Total Protein Fluid Total Protein Vancomycin Trough Rheumatoid Factor Complement C4 Miscellaneous Test Crossmatch 03/07/17 03/07/17 03/07/17 06:04 11:56 23:31 WBC RBC Hgb Hct MCV MCH MCHC RDW Plt Count Lymph % (Auto) [place] % (Auto) Lymph # [place] # Baso # Seg Neutrophils % Seg Neuts % (Manual) Lymphocytes % (Manual) Monocytes % (Manual) Eosinophils % (Manual) Basophils % (Manual) Nucleated RBC % Seg Neutrophils # Seg Neutrophils # Man Lymphocytes # (Manual) Monocytes # (Manual) Eosinophils # (Manual) Basophils # (Manual) PT INR Fibrinogen dRVVT Confirm Interp Factor V Activity POC ABG pH POC ABG pCO2 POC ABG pO2 ABG pO2 ABG HCO3 ABG Base Excess ABG Hemoglobin Oxyhemoglobin Sodium Potassium Chloride 97.5 L Carbon Dioxide BUN 28 H Creatinine 1.5 H Glucose POC Glucose 106 H 131 H Lactic Acid Calcium 7.9 L Ionized Calcium Phosphorus Magnesium Direct Bilirubin AST ALT Alkaline Phosphatase Lactate Dehydrogenase Troponin T C-Reactive Protein Total Protein Albumin Prealbumin Triglycerides Cholesterol LDL Cholesterol Direct HDL Cholesterol 25-OH Vitamin D Total PTH Intact Urine pH Urine WBC (Auto) Urine Creatinine Urine Total Protein Fluid Total Protein Vancomycin Trough Rheumatoid Factor Complement C4 Miscellaneous Test Crossmatch 03/08/17 03/08/17 03/08/17 05:15 05:38 11:50 WBC RBC Hgb Hct MCV MCH MCHC RDW Plt Count Lymph % (Auto) [place] % (Auto) Lymph # [place] # Baso # Seg Neutrophils % Seg Neuts % (Manual) Lymphocytes % (Manual) Monocytes % (Manual) Eosinophils % (Manual) Basophils % (Manual) Nucleated RBC % Seg Neutrophils # Seg Neutrophils # Man Lymphocytes # (Manual) Monocytes # (Manual) Eosinophils # (Manual) Basophils # (Manual) PT INR Fibrinogen dRVVT Confirm Interp Factor V Activity POC ABG pH POC ABG pCO2 POC ABG pO2 ABG pO2 ABG HCO3 ABG Base Excess ABG Hemoglobin Oxyhemoglobin Sodium 135 L Potassium Chloride 96.6 L Carbon Dioxide 20 L BUN 46 H Creatinine 2.3 H D Glucose 117 H POC Glucose 156 H 131 H Lactic Acid Calcium Ionized Calcium Phosphorus Magnesium Direct Bilirubin AST ALT Alkaline Phosphatase Lactate Dehydrogenase Troponin T C-Reactive Protein Total Protein Albumin Prealbumin Triglycerides Cholesterol LDL Cholesterol Direct HDL Cholesterol 25-OH Vitamin D Total PTH Intact Urine pH Urine WBC (Auto) Urine Creatinine Urine Total Protein Fluid Total Protein Vancomycin Trough Rheumatoid Factor Complement C4 Miscellaneous Test Crossmatch 03/08/17 03/09/17 03/09/17 23:34 04:42 05:20 WBC RBC Hgb Hct MCV MCH MCHC RDW Plt Count Lymph % (Auto) [place] % (Auto) Lymph # [place] # Baso # Seg Neutrophils % Seg Neuts % (Manual) Lymphocytes % (Manual) Monocytes % (Manual) Eosinophils % (Manual) Basophils % (Manual) Nucleated RBC % Seg Neutrophils # Seg Neutrophils # Man Lymphocytes # (Manual) Monocytes # (Manual) Eosinophils # (Manual) Basophils # (Manual) PT INR Fibrinogen dRVVT Confirm Interp Factor V Activity POC ABG pH POC ABG pCO2 POC ABG pO2 ABG pO2 ABG HCO3 ABG Base Excess ABG Hemoglobin Oxyhemoglobin Sodium Potassium 3.2 L Chloride Carbon Dioxide BUN 30 H Creatinine 1.7 H Glucose 112 H POC Glucose 125 H 128 H Lactic Acid Calcium 8.2 L Ionized Calcium Phosphorus 1.80 L D Magnesium 1.40 L Direct Bilirubin AST ALT Alkaline Phosphatase Lactate Dehydrogenase Troponin T C-Reactive Protein Total Protein Albumin Prealbumin Triglycerides Cholesterol LDL Cholesterol Direct HDL Cholesterol 25-OH Vitamin D Total PTH Intact Urine pH Urine WBC (Auto) Urine Creatinine Urine Total Protein Fluid Total Protein Vancomycin Trough Rheumatoid Factor Complement C4 Miscellaneous Test Crossmatch Allied health notes reviewed: nursing
[2017-03-09] MEDS ORDERED: NACL 0.9% 100 ML IV PRN (18:20)
--- NOTE | 2017-03-09 19:46 | Progress Note ---
Assessment and Plan Assessment and plan: Patient is 46-year-old woman with a history of hypertension, diabetes, asthma, hyperlipidemia, chronic kidney disease and anxiety , who was brought in by family because, she couldn't get her words out, her face was also twisted, she was admitted for acute CVA and accelerated hypertension, she had a hx of poor adherence with her medications, and uncontrolled htn. Patient's SBP on admission was noted be greater than 260. TPA was started but this was discontinued after 5 minutes because her blood pressure became uncontrolled. The TPA was not initiated again because the patient was outside the TPA window. --Acute respiratory failure status post tracheostomy vent dependent Continue current management pulmonary following --Status post cardiac arrest/anoxic encephalopathy/status post tracheostomy --Persistent agitated state/DO NOT RESUSCITATE status, family not ready for hospice --Enterococcal septicemia; continue current management ID following, PRINCE negative for vegetations --Peritonitis ; due to gastric perforation, status post exploratory laparotomy, but gastrostomy, abdominal washout and drain placement Continue current management --End-stage renal disease on hemodialysis --Large CVA; continue current management --Aspiration pneumonia; completed multiple courses of antibiotics, ID following --Atrial fibrillation, intermittent episodes of rapid ventricular rate, continue amiodarone --Severe protein calorie malnutrition; nutrition consult and supportive care --Multiple sacral and lower extremity decubitus ulcers; status post debridement , continue wound care --DO NOT RESUSCITATE status Poor prognosis Many consultations the recommendations noted appreciated Plan of care discussed with the patient's nurse Critical care time 32 minutes - The high probability of a clinically significant, sudden or life threatening deterioration of the [neurologic, CV] system(s) required my full and direct attention, intervention and personal management. The aggregate critical care time was [32] minutes. This time is in addition to time spent performing reported procedures but includes the following: [x] Data Review and interpretation [x] Patient assessment and monitoring of vital signs [x] Documentation [x] Medication orders and management History Interval history: She is seen and examined medical records reviewed Clinically no change, unresponsive, tracheostomy on vent Vital signs reviewed Hospitalist Physical - Constitutional Vitals: Temp Pulse Resp BP Pulse Ox 99.8 F H 106 H 12 103/66 100 03/09/17 16:00 03/09/17 18:15 03/09/17 18:15 03/09/17 18:15 03/09/17 18:15 General appearance: Present: no acute distress, cachectic, other (unresponsive) - EENT Eyes: Present: PERRL, EOM intact - Neck Neck: Present: supple, normal ROM - Respiratory Respiratory effort: normal, labored Respiratory: bilateral: diminished, rhonchi, negative: wheezing - Cardiovascular Rhythm: regular Heart Sounds: Present: S1 & S2 - Extremities Extremities: abnormal (contracted) Extremity abnormal: edema - Abdominal General gastrointestinal: non-tender, non-distended, normal bowel sounds, other (PEG tube in place) - Integumentary Integumentary: Present: clear, warm - Psychiatric Psychiatric: other (noncommunicative) - Neurologic Neurologic: other (unresponsive) Results - Labs CBC & Chem 7: 02/24/17 10:05 03/09/17 05:20 Labs: Laboratory Last Values WBC 10.2 K/mm3 (4.5-11.0) 02/24/17 10:05 RBC 2.95 M/mm3 (3.65-5.03) L 02/24/17 10:05 Hgb 8.4 gm/dl (10.1-14.3) L 02/24/17 10:05 Hct 25.7 % (30.3-42.9) L 02/24/17 10:05 MCV 87 fl (79-97) 02/24/17 10:05 MCH 28 pg (28-32) 02/24/17 10:05 MCHC 33 % (30-34) 02/24/17 10:05 RDW 20.8 % (13.2-15.2) H 02/24/17 10:05 Plt Count 333 K/mm3 (140-440) 02/24/17 10:05 Lymph % (Auto) 19.8 % (13.4-35.0) 02/24/17 10:05 [place] % (Auto) 7.2 % (0.0-7.3) 02/24/17 10:05 Eos % (Auto) 0.7 % (0.0-4.3) 02/24/17 10:05 Baso % (Auto) 0.5 % (0.0-1.8) 02/24/17 10:05 Lymph # 2.0 K/mm3 (1.2-5.4) 02/24/17 10:05 [place] # 0.7 K/mm3 (0.0-0.8) 02/24/17 10:05 Eos # 0.1 K/mm3 (0.0-0.4) 02/24/17 10:05 Baso # 0.0 K/mm3 (0.0-0.1) 02/24/17 10:05 Add Manual Diff Complete 12/19/16 05:02 Total Counted 100 12/19/16 05:02 Seg Neutrophils % 71.8 % (40.0-70.0) H 02/24/17 10:05 Seg Neuts % (Manual) 64.0 % (40.0-70.0) 12/19/16 05:02 Band Neutrophils % 15.0 % 12/19/16 05:02 Lymphocytes % (Manual) 13.0 % (13.4-35.0) L 12/19/16 05:02 Reactive Lymphs % (Man) 0 % 12/19/16 05:02 Monocytes % (Manual) 7.0 % (0.0-7.3) 12/19/16 05:02 Eosinophils % (Manual) 0 % (0.0-4.3) 12/19/16 05:02 Basophils % (Manual) 1.0 % (0.0-1.8) 12/19/16 05:02 Metamyelocytes % 0 % 12/19/16 05:02 Myelocytes % 0 % 12/19/16 05:02 Promyelocytes % 0 % 12/19/16 05:02 Blast Cells % 0 % 12/19/16 05:02 Nucleated RBC % 1.0 % (0.0-0.9) H 12/19/16 05:02 Seg Neutrophils # 7.3 K/mm3 (1.8-7.7) 02/24/17 10:05 Seg Neutrophils # Man 12.9 K/mm3 (1.8-7.7) H 12/19/16 05:02 Band Neutrophils # 3.0 K/mm3 12/19/16 05:02 Lymphocytes # (Manual) 2.6 K/mm3 (1.2-5.4) 12/19/16 05:02 Abs React Lymphs (Man) 0.0 K/mm3 12/19/16 05:02 Monocytes # (Manual) 1.4 K/mm3 (0.0-0.8) H 12/19/16 05:02 Eosinophils # (Manual) 0.0 K/mm3 (0.0-0.4) 12/19/16 05:02 Basophils # (Manual) 0.2 K/mm3 (0.0-0.1) H 12/19/16 05:02 Metamyelocytes # 0.0 K/mm3 12/19/16 05:02 Myelocytes # 0.0 K/mm3 12/19/16 05:02 Promyelocytes # 0.0 K/mm3 12/19/16 05:02 Blast Cells # 0.0 K/mm3 12/19/16 05:02 Pathologist Review 09/13/16 04:00 WBC Morphology Not Reportable 12/19/16 05:02 Hypersegmented Neuts Not Reportable 12/19/16 05:02 Hyposegmented Neuts Not Reportable 12/19/16 05:02 Hypogranular Neuts Not Reportable 12/19/16 05:02 Smudge Cells Not Reportable 12/19/16 05:02 Toxic Granulation Not Reportable 12/19/16 05:02 Toxic Vacuolation Not Reportable 12/19/16 05:02 Dohle Bodies Not Reportable 12/19/16 05:02 Pelger-Huet Anomaly Not Reportable 12/19/16 05:02 Ajsmina Rods Not Reportable 12/19/16 05:02 Platelet Estimate Consistent w auto 12/19/16 05:02 Clumped Platelets Not Reportable 12/19/16 05:02 Plt Clumps, EDTA Not Reportable 12/19/16 05:02 Large Platelets Not Reportable 12/19/16 05:02 Giant Platelets Not Reportable 12/19/16 05:02 Platelet Satelliting Not Reportable 12/19/16 05:02 Plt Morphology Comment Not Reportable 12/19/16 05:02 RBC Morphology Not Reportable 12/19/16 05:02 Dimorphic RBCs Not Reportable 12/19/16 05:02 Polychromasia Not Reportable 12/19/16 05:02 Hypochromasia Not Reportable 12/19/16 05:02 Poikilocytosis Not Reportable 12/19/16 05:02 Anisocytosis Not Reportable 12/19/16 05:02 Microcytosis Not Reportable 12/19/16 05:02 Macrocytosis Not Reportable 12/19/16 05:02 Spherocytes Not Reportable 12/19/16 05:02 Pappenheimer Bodies Not Reportable 12/19/16 05:02 Sickle Cells Not Reportable 12/19/16 05:02 Target Cells Few 12/19/16 05:02 Tear Drop Cells Not Reportable 12/19/16 05:02 Ovalocytes Not Reportable 12/19/16 05:02 Stomatocytes Rare 12/03/16 04:00 Helmet Cells Not Reportable 12/19/16 05:02 [place] Bodies Not Reportable 12/19/16 05:02 [place] Rings Not Reportable 12/19/16 05:02 Chuck Cells Not Reportable 12/19/16 05:02 Bite Cells Not Reportable 12/19/16 05:02 Crenated Cell Not Reportable 12/19/16 05:02 Elliptocytes Not Reportable 12/19/16 05:02 Acanthocytes (Spur) Not Reportable 12/19/16 05:02 Rouleaux Not Reportable 12/19/16 05:02 Hemoglobin C Crystals Not Reportable 12/19/16 05:02 Schistocytes Not Reportable 12/19/16 05:02 Malaria parasites Not Reportable 12/19/16 05:02 ESR > 140.0 mm/Hr (0-20) 09/08/16 11:48 Jun Bodies Not Reportable 12/19/16 05:02 Hem Pathologist Commnt No 12/19/16 05:02 PT 15.4 Sec. (12.2-14.9) H 01/13/17 15:50 INR 1.16 (0.87-1.13) H 01/13/17 15:50 APTT 33.0 Sec. (24.2-36.6) 10/09/16 03:45 Thrombin Time 16.8 Sec. (15.1-19.6) 09/03/16 00:10 Fibrinogen 750 mg/dl (211-480) H 09/08/16 11:48 Lupus Anticoagulant see below 09/12/16 09:59 LA PTT Baseline See scanned report 09/12/16 09:59 dRVVT Confirm Interp Positive (Negative) H 09/12/16 09:59 dRVVT Screen 50:50 See scanned report 09/12/16 09:59 dRVVT Mix Interpret See scanned report 09/12/16 09:59 Protein C Antigen 122 % (70-140) 09/08/16 15:35 Free Protein S 97 % normal (50-147) 09/08/16 15:35 Total Protein S 109 % (70-140) 09/08/16 15:35 Antithrombin III Ag 100 % (80-120) 09/08/16 15:35 Heparin Anti-Xa, Unfract Negative (Negative) 09/29/16 13:35 Factor V Activity 182 % (65-150) H 09/08/16 15:35 POC ABG pH 7.518 (7.35-7.45) H 03/03/17 20:17 ABG pH 7.450 pH Units (7.350-7.450) 12/05/16 Unknown POC ABG pCO2 28.8 (35-45) L 03/03/17 20: ABG pCO2 29.6 mm Hg 12/05/16 Unknown POC ABG pO2 61 (80-105) L 03/03/17 20: ABG pO2 75.2 mm Hg (80.0-90.0) L 12/05/16 Unknown POC ABG HCO3 23.4 03/03/17 20:17 ABG HCO3 20.1 mmol/L (20.0-26.0) 12/05/16 Unknown POC ABG Total CO2 24 03/03/17 20:17 POC ABG O2 Sat 94 03/03/17 20:17 ABG O2 Saturation 96.8 % (95.0-99.0) 12/05/16 Unknown ABG O2 Content 9.9 (0.0-44) 12/05/16 Unknown POC ABG Base Excess 0 03/03/17:17 ABG Base Excess -3.4 mmol/L (-2.0-3.0) L 12/05/16 Unknown ABG Hemoglobin 7.4 gm/dl (12.0-16.0) L 12/05/16 Unknown ABG Carboxyhemoglobin 1.8 % (0.0-5.0) 12/05/16 Unknown ABG Methemoglobin 0.6 % (0.0-1.5) 12/05/16 Unknown Oxyhemoglobin 94.5 % (95.0-99.0) L 12/05/16 Unknown FiO2 40 % 03/03/17 20:17 Sodium 139 mmol/L (137-145) 03/09/17 05:20 Potassium 3.2 mmol/L (3.6-5.0) L 03/09/17 05:20 Chloride 99.9 mmol/L (98-107) 03/09/17 05:20 Carbon Dioxide 23 mmol/L (22-30) 03/09/17 05:20 Anion Gap 19 mmol/L 03/09/17 05:20 BUN 30 mg/dL (7-17) H 03/09/17 05:20 Creatinine 1.7 mg/dL (0.7-1.2) H 03/09/17 05:20 Estimated GFR 39 ml/min 03/09/17 05:20 BUN/Creatinine Ratio 18 % 03/09/17 05:20 Glucose 112 mg/dL (65-100) H 03/09/17 05:20 POC Glucose 128 (70-105) H 03/09/17 04:42 Osmolality 351 Mosm/kg 09/16/16 11:47 Lactic Acid 2.30 mmol/L (0.7-2.0) H* 01/09/17 08:22 Calcium 8.2 mg/dL (8.4-10.2) L 03/09/17 05:20 Ionized Calcium 6.0 mg/dL (4.8-5.6) H 02/15/17 19:08 Phosphorus 1.80 mg/dL (2.5-4.5) L D 03/09/17 05:20 Magnesium 1.40 mg/dL (1.7-2.3) L 03/09/17 05:20 Total Bilirubin 0.50 mg/dL (0.1-1.2) 03/06/17 03:52 Direct Bilirubin 0.2 mg/dL (0-0.2) 01/28/17 04:00 Indirect Bilirubin 0.3 mg/dL 01/28/17 04:00 AST 18 units/L (5-40) 03/06/17 03:52 ALT 18 units/L (7-56) 03/06/17 03:52 Alkaline Phosphatase 165 units/L (35-129) H 03/06/17 03:52 Ammonia 27.0 umol/L (25-60) 09/07/16 08:37 Lactate Dehydrogenase 170 units/L (91-180) 01/13/17 15:50 Total Creatine Kinase 121 units/L (30-135) 09/29/16 20:12 CK-MB (CK-2) < 1.0 ng/mL (0.0-4.0) 09/29/16 20:12 CK-MB (CK-2) Rel Index 0.8 (0-4) 09/29/16 20:12 Troponin T 0.204 ng/mL (0.00-0.029) H* 09/29/16 20:12 C-Reactive Protein 8.10 mg/dL (0.00-1.30) H 01/31/17 11:12 Total Protein 7.0 g/dL (6.3-8.2) 03/06/17 03:52 Albumin 1.5 g/dL (3.9-5) L 03/06/17 03:52 Albumin/Globulin Ratio 0.3 % 03/06/17 03:52 Prealbumin 0.110 g/L (0.200-0.400) L 12/29/16 05:15 Triglycerides 55 mg/dL (2-149) 02/06/17 04:45 Cholesterol 31 mg/dL (50-199) L 09/29/16 20:12 LDL Cholesterol Direct 4 mg/dL (50-130) L 09/29/16 20:12 HDL Cholesterol 3 mg/dL (40-59) L 09/29/16 20:12 Cholesterol/HDL Ratio 10.33 % 09/29/16 20:12 Angiotensin Convert Enz See scanned report 09/08/16 11:48 Renin 0.99 ng/mL/h (0.25-5.82) 10/07/16 10:56 Aldosterone <1 ng/dL () 10/07/16 10:56 Aldosterone/Renin Dir see below 10/07/16 10:56 Serotonin Release Assay See scanned report 09/29/16 13:35 25-OH Vitamin D Total 13 ng/mL (30-100) L 02/15/17 19:08 25-Hydroxy Vitamin D2 . 02/15/17 19:08 25-Hydroxy Vitamin D3 . 02/15/17 19:08 TSH 1.010 mlU/mL (0.270-4.200) 09/07/16 08:37 HCG, Qual Negative (Negative) 09/03/16 00:10 PTH Intact 10.88 pg/mL (15-65) L 02/15/17 19:08 Total Cortisol 18.2 mcg/dL () 02/02/17 20:09 Urine Color Yellow (Yellow) 11/05/16 13:09 Urine Turbidity Clear (Clear) 11/05/16 13:09 Urine pH 9.0 (5.0-7.0) H 11/05/16 13:09 Ur Specific [place] 1.011 (1.003-1.030) 11/05/16 13:09 Urine Protein 100 mg/dl mg/dL (Negative) 11/05/16 13:09 Urine Glucose (UA) Neg mg/dL (Negative) 11/05/16 13:09 Urine Ketones Neg mg/dL (Negative) 11/05/16 13:09 Urine Blood Neg (Negative) 11/05/16 13:09 Urine Nitrite Neg (Negative) 11/05/16 13:09 Urine Bilirubin Neg (Negative) 11/05/16 13:09 Urine Urobilinogen < 2.0 mg/dL (<2.0) 11/05/16 13:09 Ur Leukocyte Esterase Neg (Negative) 11/05/16 13:09 Urine WBC (Auto) 4.0 /HPF (0.0-6.0) 11/05/16 13:09 Urine RBC (Auto) 1.0 /HPF (0.0-6.0) 11/05/16 13:09 U Epithel Cells (Auto) 1.0 /HPF (0-13.0) 10/07/16 18:30 Urine Bacteria (Auto) 4+ /HPF (Negative) 11/05/16 13:09 Urine WBC Clumps 2+ /HPF 09/07/16 02:47 Hyaline Casts 4 /LPF 09/07/16 02:47 Urine Mucus Few /HPF 10/07/16 18:30 Urine Yeast (Budding) 3+ /HPF 10/07/16 18:30 Urine Eosinophils None seen (None Seen) 09/07/16 16:00 Urine Total Volume 950 11/12/16 10:18 Urine Creatinine 19.7 mg/dL (0.1-20.0) 11/12/16 10:18 Height (in) 65.0 inches 11/12/16 10:18 Weight (lb) 181.0 lbs 11/12/16 10:18 Creatinine Clearance 5 11/12/16 10:18 Urine Sodium 36 mEq/L 09/16/16 19:19 Urine Total Protein 16 mg/dL (5-11.8) H 09/16/16 19:19 Fluid Type Pleural 01/13/17 12:10 Fluid Color Yellow 01/13/17 12:10 Fluid Appearance Hazy 01/13/17 12:10 Fluid WBC 182 /mm3 01/13/17 12:10 Fluid RBC 41 /mm3 01/13/17 12:10 Fluid Seg Neutrophils 85.0 % 01/13/17 12:10 Fluid Lymphocytes 8.0 % 01/13/17 12:10 Fluid Reactive Lymphs 0 % 01/13/17 12:10 Fluid Monocytes 6.0 % 01/13/17 12:10 Fluid Eosinophils 1.0 % 01/13/17 12:10 Fluid Basophils 0 % 01/13/17 12:10 Fluid Total Protein 3.0 (15.0-45.0) L 01/13/17 12:10 Fluid LDH 1322 01/13/17 12:10 Fluid Comment Diff performed 01/13/17 12:10 Vancomycin Trough 2.3 ug/mL (5.0-20.0) L 09/21/16 13:00 Random Vancomycin 17.7 ug/mL (0-40.0) 03/06/17 03:52 Urine Opiates Screen Presumptive negative 09/03/16 15:11 Urine Methadone Screen Presumptive positive 09/03/16 15:11 Ur Barbiturates Screen Presumptive positive 09/03/16 15:11 Ur Phencyclidine Scrn Presumptive negative 09/03/16 15:11 Ur Amphetamines Screen Presumptive negative 09/03/16 15:11 U Benzodiazepines Scrn Presumptive negative 09/03/16 15:11 Urine Cocaine Screen Presumptive negative 09/03/16 15:11 U Marijuana (THC) Screen Presumptive positive 09/03/16 15:11 Drugs of Abuse Note Disclamer 09/03/16 15:11 Rheumatoid Factor 24 IU/ml (0-13) H 09/08/16 11:48 SAHIL Screen Negative (Negative) 09/07/16 09:20 Proteinase 3 (PR3) Ab <1.0 AI (<1.0) 09/07/16 09:20 Myeloperoxidase Ab <1.0 AI (<1.0) 09/07/16 09:20 Sjogren's Antibody <1.0 AI (<1.0) 09/08/16 15:35 Scl-70 Scleroderma Ab <1.0 AI (<1.0) 09/08/16 15:35 Centromere B Antibody <1.0 AI (<1.0) 09/08/16 12:02 Heparin-induced Plt Ab Negative (Negative) 09/29/16 13:35 UF Heparin High Dose 11 % Release 09/29/16 13:35 SUDHIR UFH Low Dose 0.1 6 % Release 09/29/16 13:35 SUDHIR UFH Low Dose 0.5 8 % Release 09/29/16 13:35 Cardiolipid IgG Ab <14 GPL (<=14) 09/12/16 09:59 Cardiolipid IgA Ab <11 APL (<=11) 09/12/16 09:59 Cardiolipid IgM Ab <12 MPL (<=12) 09/12/16 09:59 Complement C3 148 mg/dL (90-180) 09/07/16 09:20 Complement C4 58 mg/dL (16-47) H 09/07/16 09:20 RPR Nonreactive (Nonreactive) 09/08/16 11:48 Hepatitis A IgM Ab Non-reactive (NonReactive) 09/24/16 14:40 Hep Bs Antigen Non-reactive (Negative) 09/24/16 14:40 Hep B Core IgM Ab Non-reactive (NonReactive) 09/24/16 14:40 Hepatitis C Antibody Non-reactive (NonReactive) 09/24/16 14:40 HIV 1&2 Antibody Rapid Non react (Non React) 09/08/16 11:48 HIV P24 Antigen Non react (Non React) 09/08/16 11:48 Miscellaneous Test Flexitest 1 H 01/09/17 18:45 Blood Type A POSITIVE 02/12/17 10:25 Antibody Screen Negative 02/12/17 10:25 DELORIS Antibody Screen Negative 11/24/16 11:20 Crossmatch See Detail 02/12/17 10:25
[2017-03-09] MEDS ORDERED: TPN ADULT IV SCH (20:00)
[2017-03-10] MEDS: HumuLIN R SUB-Q SCH ×3 (00:35→12:04)
[2017-03-10 05:26] LABS: Calcium 8.2 mg/dL (8.4-10.2)
[2017-03-10] MEDS: REGLAN IV SCH ×3 (05:27→21:34)
[2017-03-10] MEDS: FLAGYL 500 MG/100 ML 500 MG/100 ML BAG IV SCH ×3 (05:28→23:02)
[2017-03-10] MEDS: DUONEB *Not for PRN Use IH SCH ×3 (07:45→20:00)
--- NOTE | 2017-03-10 09:43 | Progress Note ---
Assessment and Plan Assessment: 1) Recurrent SIRS: new septic shock ? - Likely due to recurrent Enterococcus bacteremia ? intrabdominal source ? PIV infected 2) History of Peritonitis: from gastric perforation from dislodged PEG with significant ascites -S/P exlap, repair of gastric perforation with wedge gastrectomy, abdominal washout, drain placement on 10/05 3) History of Candidemia: -Blood cultures positive for Silvia albicans on 09/23 and 09/25 -Blood cultures negative on 09/30 -PICC line changed on 10/03 -Source ? gastric perf (PEG placed on 09/20) +/- TPN +/- central lines -TTE 10/07 no vegetations -PICC exchanged on 10/03 -fully treated with micafungin for 14 days last day 10/13 4) History CA-UTI s/p gutierrez exchanged 5) Diarrhea - ? etiology ? antibiotic-induced, not better. 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 from GI bleed 13) Recent abdominal wall abscess at surgical site-treated 14 ) Recent Enterococcal bacteremia from PICC line infection. 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 -S/P debridement at bedside - new wound cx 01/24 +Proteus and MDR Pseudomonas (resistant to meropenem and cefepime/sensitive to ceftazidime) and wound VAC placement -CRP=24 --> 8 16) Presumed VAP: sputum + MDR Pseudomonas / Proteus / pleural effusion s/p thoracentesis 17) Resp failure - better 18) Perforated bowel: Ct showed presumed perf bowel with free air -repeat CT showed large 21x4.2 cm collection 19) Enterococcal septicemia from IV cath. TTE no vegetations Plan: -surg eval - pending -PIV with purulence was removed -if not candidate for surgery call radiology for CT guided drainage -continue cefepime and flagyl -day 2 -continue vancomycin for now total 14 days from perm cath removal until 03/16 I will be covering over the phone, [employer] Ballu will round on Monday poor prognosis Thank you Dr Pierre for your consultation, will follow up with you. Pauline Carias MD Infectious Diseases Specialist [facility] ([facility]) M [phone] O [phone] Subjective Date of service: 03/10/17 Principal diagnosis: Acute resp failure on MVS; S/P Acute CVA; Acute Encephalopathy; JUANITA Interval history: Interval history: remains on the vent, tachy on monitor, on amiodarone gtt, had fever on 03/05, fever resolved, on levophed at 1 mcg/min Microbiology: Blood cultures: 09/13 neg 8/ Silvia albicans 09/25 Silvia 09/29 neg 10/07 neg 11/05 neg 11/07 ngtd 11/22 E faecalis 1 of 4 bottles 11/25 neg 12/27 neg 01/09 ngtd 02/14 ngtd 02/27 Enterococcus durans 1 of 4 bottles 03/06 ngtd Urine cultures: 09/10 neg 09/13 neg 8/ 10-100K mixed species 10/07 neg 11/05 VRE 11/07 mixed bacteria Respiratory cultures: 09/07 neg 09/13 neg 8 neg 11/07 MDR Pseudomonas 10 tracheal + VRE 01/09 Pseudomonas x 3 and Proteues Pleural effusion: ngtd Wound cultures: 10/17 abd wall wound purulence + Pseudomonas MDR 01/24 GNRs Stool cultures: cath tip 11/07 + LEAD [employer]IAN Current Antimicrobials: none Previous Antimicrobials: Zosyn 10/07 Vancomycin PO 10/01 Metronidazole 09/25 Micafungin 09/27-10/13 Meropenem 10/10 Vanco 10/17 zosyn 10/21 Cefepime 11/10 vancomyin 11/07 fluconazole 10/19 cefepime 10/29levaquin 11/05 vanco 11/23 meropenem 01/08 ceftaz 01/30 Objective - Exam Narrative Exam: General appearance: alert non communicative, on the vent via trach in mild resp distress, no following commands Eyes: anicteric sclera, moist conjunctivae; PERRLA HENT: Atraumatic; oropharynx limited; Normal external ears. +NGT with greenish secretion Neck: +trach in place; supple, no thyromegaly or lymphadenopathy Lungs: brit coarse BS CV: tachy Abdomen: Soft, tender, +old PEG site no drainage. +iliostomy. 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 Necrotic tissue noted on the wound edges and in the wound bed Now with a wound VAC Psych: somnolent . Neuro: alert non verbal on the vent. Lines: PICC / gutierrez - Constitutional Vitals: Vital Signs Temp Pulse Resp BP Pulse Ox 98.5 F 100 H 21 104/54 96 03/10/17 08:12 03/10/17 08:30 03/10/17 08:30 03/10/17 08:30 03/10/17 08:30 Temperature -Last 24 Hours Temperature 98.5 F Temperature 98.5 F Temperature 99.2 F Temperature 98.5 F Temperature 99.2 F Temperature 98.5 F Temperature 98.3 F Temperature 99.8 F Temperature 99.9 F - Labs CBC & Chem 7: 02/24/17 10:05 03/10/17 04:46 Labs: Abnormal lab results 03/09/17 03/09/17 03/10/17 Range/Units 11:48 17:38 00:08 Sodium (137-145) mmol/L Chloride (98-107) mmol/L Carbon Dioxide (22-30) mmol/L BUN (7-17) mg/dL Creatinine (0.7-1.2) mg/dL Glucose (65-100) mg/dL POC Glucose 146 H 140 H 137 H (70-105) Calcium (8.4-10.2) mg/dL 03/10/17 03/10/17 Range/Units 04:46 06:37 Sodium 135 L (137-145) mmol/L Chloride 96.3 L (98-107) mmol/L Carbon Dioxide 21 L (22-30) mmol/L BUN 46 H (7-17) mg/dL Creatinine 2.2 H (0.7-1.2) mg/dL Glucose 106 H (65-100) mg/dL POC Glucose 115 H (70-105) Calcium 8.2 L (8.4-10.2) mg/dL
[2017-03-10] MEDS ORDERED: NACL 0.9% 1000 ML 2,000 ML ONE (10:15)
[2017-03-10] MEDS: HEPARIN SUB-Q SCH ×2 (11:55→21:34)
[2017-03-10] MEDS: PEPCID IV SCH (11:55)
[2017-03-10] MEDS: MAXIPIME 1 GM in NACL 0.9% 20 ML IV SCH (11:55)
[2017-03-10] MEDS: LOPRESSOR IV SCH ×3 (11:56→23:08)
[2017-03-10] MEDS: CORDARONE 900 MG in D5W 482 ML IV SCH (11:57)
--- NOTE | 2017-03-10 12:04 | Progress Note ---
Assessment and Plan Acute Hypoxemic Respiratory Failure (now with exacerbation and back on MVS) Hypertension (unable to receive p.o. meds) Atrial Fibrillation with RVR s/p tracheostomy Acute encephalopathy s/p CVA Oropharyngeal dysphagia Enterococcal bacteremia sepsis syndrome Sacral Decubitus Ulcer (s/p surgical debridement) Anemia Obesity JUANITA now on hemodialysis Enteric Fistula - keep on with daily t-piece/PSV trials as tolerated - continue scheduled IV metoprolol with hold parameters - follow 2D ECHO re: ? SBE - stop Amiodarone drip once rate better controlled - continue to hold tube feeds due to continued intolerance; continue reglan at 10mg IV q8h - continue NGT to LIS - continue TPN - remains on amiodarone drip for persistent tachycardia - prn CXR's at this point - appreciate surgery input - continue fentanyl patch for pain issues especially s/p debridement - continue wound care per WCT and RN's (she is s/p surgical debridement) - continue anti-infectives per ID recs (Vancomycin now) - prn CRP & lactate levels if clinically indicated (Follow WBC also) - continue TPN administration (Change to PPN re: vascular access issues) - continue robinul & scopolamine for secretion control - continue to wean FiO2 for sats > 94% - continue bronchodilators and pulmonary toilet - VAP bundle addressed - continue to follow electrolytes and correct as necessary - continue GI & VTE prophylaxis - Continue flu & pneumovax per protocol - ethics consult placed and pending .....she remains critically ill on life sustaining interventions including MVS and at risk for further deterioration including ....30' CCT ....care plan discussed at length during team rounds ...residential prognosis remains guarded and this has intermittently been conveyed to family Subjective Date of service: 03/10/17 Principal diagnosis: Acute resp failure on MVS; S/P Acute CVA; Acute Encephalopathy; JUANITA Interval history: Patient is seen today for: Acute resp failure on MVS; S/P Acute CVA; Acute Encephalopathy; JUANITA Seen and examined at bedside; 24hour events reviewed; nursing and respiratory care staff consulted; no adverse overnight events reported to me; remains on MVS ; CT abd/pelvis demonstrates fluid collection; remains hypotensive; AMS is persistent; No gross bleeding Objective Vital Signs - 12hr 03/10/17 03/10/17 03/10/17 00:15 00:30 00:45 Temperature Pulse Rate 105 H 109 H 111 H Pulse Rate [ Throughout] Respiratory 14 18 21 Rate Respiratory Rate [ Throughout] Blood Pressure 96/49 95/53 98/50 O2 Sat by Pulse 99 100 100 Oximetry O2 Sat by Pulse Oximetry [ Assessment] O2 Sat by Pulse Oximetry [ Throughout] 03/10/17 03/10/17 03/10/17 01:00 01:15 01:30 Temperature Pulse Rate 116 H 109 H 109 H Pulse Rate [ Throughout] Respiratory 19 18 22 Rate Respiratory Rate [ Throughout] Blood Pressure 104/45 96/51 87/53 O2 Sat by Pulse 97 98 100 Oximetry O2 Sat by Pulse Oximetry [ Assessment] O2 Sat by Pulse Oximetry [ Throughout] 03/10/17 03/10/17 03/10/17 01:45 02:00 02:15 Temperature Pulse Rate 105 H 107 H 98 H Pulse Rate [ Throughout] Respiratory 22 21 15 Rate Respiratory Rate [ Throughout] Blood Pressure 92/53 102/55 102/55 O2 Sat by Pulse 99 100 100 Oximetry O2 Sat by Pulse Oximetry [ Assessment] O2 Sat by Pulse Oximetry [ Throughout] 03/10/17 03/10/17 03/10/17 02:31 02:45 03:00 Temperature Pulse Rate 112 H 100 H 108 H Pulse Rate [ Throughout] Respiratory 24 15 26 H Rate Respiratory Rate [ Throughout] Blood Pressure 111/53 111/53 100/61 O2 Sat by Pulse 99 100 99 Oximetry O2 Sat by Pulse Oximetry [ Assessment] O2 Sat by Pulse Oximetry [ Throughout] 03/10/17 03/10/17 03/10/17 03:15 03:30 03:45 Temperature Pulse Rate 103 H 107 H 103 H Pulse Rate [ Throughout] Respiratory 16 24 22 Rate Respiratory Rate [ Throughout] Blood Pressure 100/61 111/54 111/54 O2 Sat by Pulse 100 97 100 Oximetry O2 Sat by Pulse Oximetry [ Assessment] O2 Sat by Pulse Oximetry [ Throughout] 03/10/17 03/10/17 03/10/17 04:00 04:15 04:30 Temperature 98.5 F Pulse Rate 118 H 102 H 108 H Pulse Rate [ Throughout] Respiratory 17 26 H 20 Rate Respiratory Rate [ Throughout] Blood Pressure 105/52 104/51 104/52 O2 Sat by Pulse 99 99 96 Oximetry O2 Sat by Pulse Oximetry [ Assessment] O2 Sat by Pulse Oximetry [ Throughout] 03/10/17 03/10/17 03/10/17 04:45 05:00 05:15 Temperature Pulse Rate 106 H 105 H 109 H Pulse Rate [ Throughout] Respiratory 16 17 24 Rate Respiratory Rate [ Throughout] Blood Pressure 104/52 102/48 102/48 O2 Sat by Pulse 99 94 98 Oximetry O2 Sat by Pulse Oximetry [ Assessment] O2 Sat by Pulse Oximetry [ Throughout] 03/10/17 03/10/17 03/10/17 05:30 05:45 06:00 Temperature Pulse Rate 105 H 109 H Pulse Rate [ Throughout] Respiratory 19 20 Rate Respiratory Rate [ Throughout] Blood Pressure 101/50 101/50 101/50 O2 Sat by Pulse 95 100 100 Oximetry O2 Sat by Pulse Oximetry [ Assessment] O2 Sat by Pulse Oximetry [ Throughout] 03/10/17 03/10/17 03/10/17 06:16 06:41 07:00 Temperature 99.2 F Pulse Rate 112 H 102 H Pulse Rate [ Throughout] Respiratory 21 21 Rate Respiratory Rate [ Throughout] Blood Pressure 112/67 112/58 O2 Sat by Pulse 95 98 Oximetry O2 Sat by Pulse Oximetry [ Assessment] O2 Sat by Pulse Oximetry [ Throughout] 03/10/17 03/10/17 03/10/17 07:16 07:30 07:32 Temperature Pulse Rate 100 H 106 H 102 H Pulse Rate [ Throughout] Respiratory 21 24 Rate Respiratory Rate [ Throughout] Blood Pressure 115/58 119/61 119/61 O2 Sat by Pulse 97 95 98 Oximetry O2 Sat by Pulse Oximetry [ Assessment] O2 Sat by Pulse Oximetry [ Throughout] 03/10/17 03/10/17 03/10/17 07:33 07:37 07:46 Temperature 98.5 F Pulse Rate 102 H Pulse Rate [ 102 H Throughout] Respiratory 25 H Rate Respiratory 20 Rate [ Throughout] Blood Pressure 101/61 O2 Sat by Pulse Oximetry O2 Sat by Pulse 98 Oximetry [ Assessment] O2 Sat by Pulse Oximetry [ Throughout] 03/10/17 03/10/17 03/10/17 07:53 08:00 08:12 Temperature 98.5 F Pulse Rate 103 H Pulse Rate [ 103 H Throughout] Respiratory 20 Rate Respiratory 20 Rate [ Throughout] Blood Pressure 102/52 O2 Sat by Pulse 97 Oximetry O2 Sat by Pulse Oximetry [ Assessment] O2 Sat by Pulse Oximetry [ Throughout] 03/10/17 03/10/17 03/10/17 08:15 08:30 08:46 Temperature Pulse Rate 102 H 100 H 102 H Pulse Rate [ Throughout] Respiratory 20 21 31 H Rate Respiratory Rate [ Throughout] Blood Pressure 101/55 104/54 95/56 O2 Sat by Pulse 98 96 90 Oximetry O2 Sat by Pulse Oximetry [ Assessment] O2 Sat by Pulse Oximetry [ Throughout] 03/10/17 03/10/17 03/10/17 09:00 09:15 09:30 Temperature Pulse Rate 99 H 98 H 103 H Pulse Rate [ Throughout] Respiratory 20 16 27 H Rate Respiratory Rate [ Throughout] Blood Pressure 95/58 101/52 102/54 O2 Sat by Pulse 94 99 95 Oximetry O2 Sat by Pulse Oximetry [ Assessment] O2 Sat by Pulse Oximetry [ Throughout] 03/10/17 03/10/17 03/10/17 09:45 10:00 10:20 Temperature 99.6 F Pulse Rate 103 H 101 H 105 H Pulse Rate [ Throughout] Respiratory 20 20 20 Rate Respiratory Rate [ Throughout] Blood Pressure 103/57 108/56 102/54 O2 Sat by Pulse 94 98 Oximetry O2 Sat by Pulse Oximetry [ Assessment] O2 Sat by Pulse 100 Oximetry [ Throughout] 03/10/17 03/10/17 03/10/17 10:30 10:45 11:00 Temperature Pulse Rate 101 H 105 H 105 H Pulse Rate [ Throughout] Respiratory Rate Respiratory Rate [ Throughout] Blood Pressure 97/48 91/49 91/55 O2 Sat by Pulse Oximetry O2 Sat by Pulse Oximetry [ Assessment] O2 Sat by Pulse Oximetry [ Throughout] 03/10/17 03/10/17 03/10/17 11:10 11:15 11:30 Temperature Pulse Rate 100 H 111 H 111 H Pulse Rate [ Throughout] Respiratory Rate Respiratory Rate [ Throughout] Blood Pressure 91/58 95/56 O2 Sat by Pulse 96 Oximetry O2 Sat by Pulse Oximetry [ Assessment] O2 Sat by Pulse Oximetry [ Throughout] 03/10/17 03/10/17 11:47 12:00 Temperature 98.1 F Pulse Rate 117 H Pulse Rate [ Throughout] Respiratory Rate Respiratory Rate [ Throughout] Blood Pressure 91/57 O2 Sat by Pulse Oximetry O2 Sat by Pulse Oximetry [ Assessment] O2 Sat by Pulse Oximetry [ Throughout] Constitutional: appears uncomfortable, other (not tracking) Eyes: non-icteric, other (tracheostomy tube in midline of neck) ENT: oropharynx moist, oropharyngeal exudate pre, other (midline tracheostomy tube) Neck: supple, no lymphadenopathy, no JVD, other (no thyromegaly) Effort: mildly labored Ascultation: Bilateral: rhonchi (and referred upper airway sounds) Percussion: Bilateral: not dull Cardiovascular: regular rate and rhythm, other (no rubs / murmurs) Gastrointestinal: hypoactive bowel sounds, soft, non-tender, non-distended, other (RLQ & LUQ stomas with colostomy bags) Integumentary: decubitus ulcer (sacral; stage 4 s/p surgical debridement), other (no rash; no cellulitis; poor turgor) Extremities: no cyanosis, pulses normal, no ischemia or petechiae, edema (1+ bilaterally) Neurologic: pupils equal and round, unable to assess, other (encephalopathic) Psychiatric: other (unable to assess) CBC and BMP: 02/24/17 10:05 03/13/17 05:39 ABG, PT/INR, D-dimer: ABG POC ABG pH 7.518 (7.35-7.45) H 03/03/17 20: ABG pH 7.450 pH Units (7.350-7.450) 12/05/16 Unknown POC ABG pCO2 28.8 (35-45) L 03/03/17 20: ABG pCO2 29.6 mm Hg 12/05/16 Unknown POC ABG pO2 61 (80-105) L 03/03/17 20: ABG pO2 75.2 mm Hg (80.0-90.0) L 12/05/16 Unknown POC ABG HCO3 23.4 03/03/17 20:17 POC ABG Total CO2 24 03/03/17 20:17 POC ABG O2 Sat 94 03/03/17 20: ABG O2 Saturation 96.8 % (95.0-99.0) 12/05/16 Unknown PT/INR, D-dimer PT 15.4 Sec. (12.2-14.9) H 01/13/17 15:50 INR 1.16 (0.87-1.13) H 01/13/17 15:50 Abnormal lab findings: Abnormal Labs 07/15/17 07/15/17 07/15/17 00:03 00:10 00:10 WBC 13.9 H RBC 5.95 H Hgb Hct 44.0 H MCV 74 L MCH 22 L MCHC RDW 17.5 H Plt Count Lymph % (Auto) [place] % (Auto) Lymph # [place] # Baso # Seg Neutrophils % Seg Neuts % (Manual) Lymphocytes % (Manual) 54.0 H Monocytes % (Manual) Eosinophils % (Manual) Basophils % (Manual) Nucleated RBC % Seg Neutrophils # Seg Neutrophils # Man Lymphocytes # (Manual) 7.5 H Monocytes # (Manual) Eosinophils # (Manual) Basophils # (Manual) PT INR Fibrinogen dRVVT Confirm Interp Factor V Activity POC ABG pH POC ABG pCO2 POC ABG pO2 ABG pO2 ABG HCO3 ABG Base Excess ABG Hemoglobin Oxyhemoglobin Sodium Potassium 2.8 L* Chloride Carbon Dioxide 21 L BUN Creatinine 1.7 H Glucose 159 H POC Glucose 177 H Lactic Acid Calcium Ionized Calcium Phosphorus Magnesium Direct Bilirubin AST ALT Alkaline Phosphatase Lactate Dehydrogenase Troponin T C-Reactive Protein Total Protein Albumin Prealbumin Triglycerides Cholesterol LDL Cholesterol Direct HDL Cholesterol 25-OH Vitamin D Total PTH Intact Urine pH Urine WBC (Auto) Urine Creatinine Urine Total Protein Fluid Total Protein Vancomycin Trough Rheumatoid Factor Complement C4 Miscellaneous Test Crossmatch 09/03/16 09/03/16 09/03/16 12:12 15:07 16:20 WBC RBC Hgb Hct MCV MCH MCHC RDW Plt Count Lymph % (Auto) [place] % (Auto) Lymph # [place] # Baso # Seg Neutrophils % Seg Neuts % (Manual) Lymphocytes % (Manual) Monocytes % (Manual) Eosinophils % (Manual) Basophils % (Manual) Nucleated RBC % Seg Neutrophils # Seg Neutrophils # Man Lymphocytes # (Manual) Monocytes # (Manual) Eosinophils # (Manual) Basophils # (Manual) PT INR Fibrinogen dRVVT Confirm Interp Factor V Activity POC ABG pH 7.452 H POC ABG pCO2 POC ABG pO2 ABG pO2 ABG HCO3 ABG Base Excess ABG Hemoglobin Oxyhemoglobin Sodium Potassium Chloride Carbon Dioxide BUN Creatinine Glucose POC Glucose 178 H Lactic Acid Calcium Ionized Calcium Phosphorus 2.20 L Magnesium 1.60 L Direct Bilirubin AST ALT Alkaline Phosphatase Lactate Dehydrogenase Troponin T C-Reactive Protein Total Protein Albumin Prealbumin Triglycerides Cholesterol LDL Cholesterol Direct HDL Cholesterol 25-OH Vitamin D Total PTH Intact Urine pH Urine WBC (Auto) Urine Creatinine Urine Total Protein Fluid Total Protein Vancomycin Trough Rheumatoid Factor Complement C4 Miscellaneous Test Crossmatch 09/03/16 09/03/16 09/03/16 17:57 17:58 23:50 WBC RBC Hgb Hct MCV MCH MCHC RDW Plt Count Lymph % (Auto) [place] % (Auto) Lymph # [place] # Baso # Seg Neutrophils % Seg Neuts % (Manual) Lymphocytes % (Manual) Monocytes % (Manual) Eosinophils % (Manual) Basophils % (Manual) Nucleated RBC % Seg Neutrophils # Seg Neutrophils # Man Lymphocytes # (Manual) Monocytes # (Manual) Eosinophils # (Manual) Basophils # (Manual) PT INR Fibrinogen dRVVT Confirm Interp Factor V Activity POC ABG pH POC ABG pCO2 POC ABG pO2 ABG pO2 ABG HCO3 ABG Base Excess ABG Hemoglobin Oxyhemoglobin Sodium Potassium Chloride Carbon Dioxide BUN Creatinine Glucose POC Glucose 162 H 145 H Lactic Acid Calcium Ionized Calcium Phosphorus 2.30 L Magnesium Direct Bilirubin AST ALT Alkaline Phosphatase Lactate Dehydrogenase Troponin T C-Reactive Protein Total Protein Albumin Prealbumin Triglycerides Cholesterol LDL Cholesterol Direct HDL Cholesterol 25-OH Vitamin D Total PTH Intact Urine pH Urine WBC (Auto) Urine Creatinine Urine Total Protein Fluid Total Protein Vancomycin Trough Rheumatoid Factor Complement C4 Miscellaneous Test Crossmatch 09/04/16 09/04/16 09/04/16 03:31 03:31 05:42 WBC RBC Hgb 9.7 L D Hct MCV 72 L MCH 23 L MCHC RDW 17.5 H Plt Count Lymph % (Auto) 11.1 L [place] % (Auto) Lymph # [place] # Baso # Seg Neutrophils % 84.3 H Seg Neuts % (Manual) Lymphocytes % (Manual) Monocytes % (Manual) Eosinophils % (Manual) Basophils % (Manual) Nucleated RBC % Seg Neutrophils # 8.9 H Seg Neutrophils # Man Lymphocytes # (Manual) Monocytes # (Manual) Eosinophils # (Manual) Basophils # (Manual) PT INR Fibrinogen dRVVT Confirm Interp Factor V Activity POC ABG pH POC ABG pCO2 POC ABG pO2 ABG pO2 ABG HCO3 ABG Base Excess ABG Hemoglobin Oxyhemoglobin Sodium 135 L Potassium 2.9 L* Chloride 97.2 L Carbon Dioxide 19 L BUN Creatinine 1.7 H Glucose 170 H POC Glucose 152 H Lactic Acid Calcium Ionized Calcium Phosphorus Magnesium Direct Bilirubin AST ALT Alkaline Phosphatase Lactate Dehydrogenase Troponin T C-Reactive Protein Total Protein Albumin Prealbumin Triglycerides 160 H Cholesterol LDL Cholesterol Direct HDL Cholesterol 31 L 25-OH Vitamin D Total PTH Intact Urine pH Urine WBC (Auto) Urine Creatinine Urine Total Protein Fluid Total Protein Vancomycin Trough Rheumatoid Factor Complement C4 Miscellaneous Test Crossmatch 09/04/16 09/04/16 09/04/16 11:34 17:46 23:29 WBC RBC Hgb Hct MCV MCH MCHC RDW Plt Count Lymph % (Auto) [place] % (Auto) Lymph # [place] # Baso # Seg Neutrophils % Seg Neuts % (Manual) Lymphocytes % (Manual) Monocytes % (Manual) Eosinophils % (Manual) Basophils % (Manual) Nucleated RBC % Seg Neutrophils # Seg Neutrophils # Man Lymphocytes # (Manual) Monocytes # (Manual) Eosinophils # (Manual) Basophils # (Manual) PT INR Fibrinogen dRVVT Confirm Interp Factor V Activity POC ABG pH POC ABG pCO2 POC ABG pO2 ABG pO2 ABG HCO3 ABG Base Excess ABG Hemoglobin Oxyhemoglobin Sodium Potassium Chloride Carbon Dioxide BUN Creatinine Glucose POC Glucose 165 H 210 H 139 H Lactic Acid Calcium Ionized Calcium Phosphorus Magnesium Direct Bilirubin AST ALT Alkaline Phosphatase Lactate Dehydrogenase Troponin T C-Reactive Protein Total Protein Albumin Prealbumin Triglycerides Cholesterol LDL Cholesterol Direct HDL Cholesterol 25-OH Vitamin D Total PTH Intact Urine pH Urine WBC (Auto) Urine Creatinine Urine Total Protein Fluid Total Protein Vancomycin Trough Rheumatoid Factor Complement C4 Miscellaneous Test Crossmatch 09/05/16 09/05/16 09/05/16 04:05 04:05 05:38 WBC RBC Hgb Hct MCV 76 L D MCH 23 L MCHC RDW 17.8 H Plt Count Lymph % (Auto) [place] % (Auto) Lymph # [place] # Baso # Seg Neutrophils % Seg Neuts % (Manual) Lymphocytes % (Manual) Monocytes % (Manual) Eosinophils % (Manual) Basophils % (Manual) Nucleated RBC % Seg Neutrophils # Seg Neutrophils # Man Lymphocytes # (Manual) Monocytes # (Manual) Eosinophils # (Manual) Basophils # (Manual) PT INR Fibrinogen dRVVT Confirm Interp Factor V Activity POC ABG pH POC ABG pCO2 POC ABG pO2 ABG pO2 ABG HCO3 ABG Base Excess ABG Hemoglobin Oxyhemoglobin Sodium 134 L Potassium Chloride Carbon Dioxide 18 L BUN Creatinine 1.8 H Glucose 192 H POC Glucose 175 H Lactic Acid Calcium Ionized Calcium Phosphorus Magnesium Direct Bilirubin AST ALT Alkaline Phosphatase Lactate Dehydrogenase Troponin T C-Reactive Protein Total Protein Albumin Prealbumin Triglycerides Cholesterol LDL Cholesterol Direct HDL Cholesterol 25-OH Vitamin D Total PTH Intact Urine pH Urine WBC (Auto) Urine Creatinine Urine Total Protein Fluid Total Protein Vancomycin Trough Rheumatoid Factor Complement C4 Miscellaneous Test Crossmatch 09/05/16 09/05/16 09/05/16 11:38 17:48 23:22 WBC RBC Hgb Hct MCV MCH MCHC RDW Plt Count Lymph % (Auto) [place] % (Auto) Lymph # [place] # Baso # Seg Neutrophils % Seg Neuts % (Manual) Lymphocytes % (Manual) Monocytes % (Manual) Eosinophils % (Manual) Basophils % (Manual) Nucleated RBC % Seg Neutrophils # Seg Neutrophils # Man Lymphocytes # (Manual) Monocytes # (Manual) Eosinophils # (Manual) Basophils # (Manual) PT INR Fibrinogen dRVVT Confirm Interp Factor V Activity POC ABG pH POC ABG pCO2 POC ABG pO2 ABG pO2 ABG HCO3 ABG Base Excess ABG Hemoglobin Oxyhemoglobin Sodium Potassium Chloride Carbon Dioxide BUN Creatinine Glucose POC Glucose 164 H 186 H 195 H Lactic Acid Calcium Ionized Calcium Phosphorus Magnesium Direct Bilirubin AST ALT Alkaline Phosphatase Lactate Dehydrogenase Troponin T C-Reactive Protein Total Protein Albumin Prealbumin Triglycerides Cholesterol LDL Cholesterol Direct HDL Cholesterol 25-OH Vitamin D Total PTH Intact Urine pH Urine WBC (Auto) Urine Creatinine Urine Total Protein Fluid Total Protein Vancomycin Trough Rheumatoid Factor Complement C4 Miscellaneous Test Crossmatch 09/06/16 09/06/16 09/06/16 04:12 05:59 07:32 WBC RBC Hgb Hct MCV MCH MCHC RDW Plt Count Lymph % (Auto) [place] % (Auto) Lymph # [place] # Baso # Seg Neutrophils % Seg Neuts % (Manual) Lymphocytes % (Manual) Monocytes % (Manual) Eosinophils % (Manual) Basophils % (Manual) Nucleated RBC % Seg Neutrophils # Seg Neutrophils # Man Lymphocytes # (Manual) Monocytes # (Manual) Eosinophils # (Manual) Basophils # (Manual) PT INR Fibrinogen dRVVT Confirm Interp Factor V Activity POC ABG pH 7.514 H POC ABG pCO2 29.1 L POC ABG pO2 72 L ABG pO2 ABG HCO3 ABG Base Excess ABG Hemoglobin Oxyhemoglobin Sodium 133 L Potassium 3.4 L Chloride 94.9 L Carbon Dioxide 19 L BUN 30 H Creatinine 2.1 H Glucose 139 H POC Glucose 146 H Lactic Acid Calcium Ionized Calcium Phosphorus Magnesium Direct Bilirubin AST ALT Alkaline Phosphatase Lactate Dehydrogenase Troponin T C-Reactive Protein Total Protein Albumin Prealbumin Triglycerides Cholesterol LDL Cholesterol Direct HDL Cholesterol 25-OH Vitamin D Total PTH Intact Urine pH Urine WBC (Auto) Urine Creatinine Urine Total Protein Fluid Total Protein Vancomycin Trough Rheumatoid Factor Complement C4 Miscellaneous Test Crossmatch 09/06/16 09/06/16 09/06/16 11:57 17:58 19:02 WBC RBC Hgb Hct MCV MCH MCHC RDW Plt Count Lymph % (Auto) [place] % (Auto) Lymph # [place] # Baso # Seg Neutrophils % Seg Neuts % (Manual) Lymphocytes % (Manual) Monocytes % (Manual) Eosinophils % (Manual) Basophils % (Manual) Nucleated RBC % Seg Neutrophils # Seg Neutrophils # Man Lymphocytes # (Manual) Monocytes # (Manual) Eosinophils # (Manual) Basophils # (Manual) PT INR Fibrinogen dRVVT Confirm Interp Factor V Activity POC ABG pH 7.465 H POC ABG pCO2 32.0 L POC ABG pO2 ABG pO2 ABG HCO3 ABG Base Excess ABG Hemoglobin Oxyhemoglobin Sodium Potassium Chloride Carbon Dioxide BUN Creatinine Glucose POC Glucose 165 H 160 H Lactic Acid Calcium Ionized Calcium Phosphorus Magnesium Direct Bilirubin AST ALT Alkaline Phosphatase Lactate Dehydrogenase Troponin T C-Reactive Protein Total Protein Albumin Prealbumin Triglycerides Cholesterol LDL Cholesterol Direct HDL Cholesterol 25-OH Vitamin D Total PTH Intact Urine pH Urine WBC (Auto) Urine Creatinine Urine Total Protein Fluid Total Protein Vancomycin Trough Rheumatoid Factor Complement C4 Miscellaneous Test Crossmatch 09/06/16 09/07/16 09/07/16 23:45 02:47 02:47 WBC RBC Hgb Hct MCV MCH MCHC RDW Plt Count Lymph % (Auto) [place] % (Auto) Lymph # [place] # Baso # Seg Neutrophils % Seg Neuts % (Manual) Lymphocytes % (Manual) Monocytes % (Manual) Eosinophils % (Manual) Basophils % (Manual) Nucleated RBC % Seg Neutrophils # Seg Neutrophils # Man Lymphocytes # (Manual) Monocytes # (Manual) Eosinophils # (Manual) Basophils # (Manual) PT INR Fibrinogen dRVVT Confirm Interp Factor V Activity POC ABG pH POC ABG pCO2 POC ABG pO2 ABG pO2 ABG HCO3 ABG Base Excess ABG Hemoglobin Oxyhemoglobin Sodium Potassium Chloride Carbon Dioxide BUN Creatinine Glucose POC Glucose 204 H Lactic Acid Calcium Ionized Calcium Phosphorus Magnesium Direct Bilirubin AST ALT Alkaline Phosphatase Lactate Dehydrogenase Troponin T C-Reactive Protein Total Protein Albumin Prealbumin Triglycerides Cholesterol LDL Cholesterol Direct HDL Cholesterol 25-OH Vitamin D Total PTH Intact Urine pH Urine WBC (Auto) 68.0 H Urine Creatinine 106.1 H Urine Total Protein Fluid Total Protein Vancomycin Trough Rheumatoid Factor Complement C4 Miscellaneous Test Crossmatch 09/07/16 09/07/16 09/07/16 04:50 06:19 06:39 WBC RBC Hgb Hct MCV MCH MCHC RDW Plt Count Lymph % (Auto) [place] % (Auto) Lymph # [place] # Baso # Seg Neutrophils % Seg Neuts % (Manual) Lymphocytes % (Manual) Monocytes % (Manual) Eosinophils % (Manual) Basophils % (Manual) Nucleated RBC % Seg Neutrophils # Seg Neutrophils # Man Lymphocytes # (Manual) Monocytes # (Manual) Eosinophils # (Manual) Basophils # (Manual) PT INR Fibrinogen dRVVT Confirm Interp Factor V Activity POC ABG pH 7.457 H POC ABG pCO2 32.1 L POC ABG pO2 76 L ABG pO2 ABG HCO3 ABG Base Excess ABG Hemoglobin Oxyhemoglobin Sodium 132 L Potassium Chloride 94.7 L Carbon Dioxide BUN 53 H Creatinine 2.9 H Glucose 151 H POC Glucose 149 H Lactic Acid Calcium Ionized Calcium Phosphorus Magnesium Direct Bilirubin AST ALT Alkaline Phosphatase Lactate Dehydrogenase Troponin T C-Reactive Protein Total Protein Albumin Prealbumin Triglycerides Cholesterol LDL Cholesterol Direct HDL Cholesterol 25-OH Vitamin D Total PTH Intact Urine pH Urine WBC (Auto) Urine Creatinine Urine Total Protein Fluid Total Protein Vancomycin Trough Rheumatoid Factor Complement C4 Miscellaneous Test Crossmatch 09/07/16 09/07/16 09/07/16 09:20 11:43 11:43 WBC 19.4 H RBC Hgb 8.3 L Hct 26.4 L D MCV 72 L D MCH 22 L MCHC RDW 17.9 H Plt Count Lymph % (Auto) 8.5 L [place] % (Auto) Lymph # [place] # 1.0 H Baso # Seg Neutrophils % 85.8 H Seg Neuts % (Manual) Lymphocytes % (Manual) Monocytes % (Manual) Eosinophils % (Manual) Basophils % (Manual) Nucleated RBC % Seg Neutrophils # 16.6 H Seg Neutrophils # Man Lymphocytes # (Manual) Monocytes # (Manual) Eosinophils # (Manual) Basophils # (Manual) PT INR Fibrinogen dRVVT Confirm Interp Factor V Activity POC ABG pH POC ABG pCO2 POC ABG pO2 ABG pO2 ABG HCO3 ABG Base Excess ABG Hemoglobin Oxyhemoglobin Sodium 134 L Potassium Chloride 97.2 L Carbon Dioxide 20 L BUN 58 H Creatinine 2.9 H Glucose 147 H POC Glucose Lactic Acid Calcium Ionized Calcium Phosphorus 2.40 L Magnesium 2.40 H Direct Bilirubin AST ALT Alkaline Phosphatase Lactate Dehydrogenase Troponin T C-Reactive Protein Total Protein 5.8 L Albumin 2.2 L Prealbumin Triglycerides Cholesterol LDL Cholesterol Direct HDL Cholesterol 25-OH Vitamin D Total PTH Intact Urine pH Urine WBC (Auto) Urine Creatinine Urine Total Protein Fluid Total Protein Vancomycin Trough Rheumatoid Factor Complement C4 58 H Miscellaneous Test Crossmatch 09/07/16 09/07/16 09/07/16 11:50 16:00 17:31 WBC RBC Hgb Hct MCV MCH MCHC RDW Plt Count Lymph % (Auto) [place] % (Auto) Lymph # [place] # Baso # Seg Neutrophils % Seg Neuts % (Manual) Lymphocytes % (Manual) Monocytes % (Manual) Eosinophils % (Manual) Basophils % (Manual) Nucleated RBC % Seg Neutrophils # Seg Neutrophils # Man Lymphocytes # (Manual) Monocytes # (Manual) Eosinophils # (Manual) Basophils # (Manual) PT INR Fibrinogen dRVVT Confirm Interp Factor V Activity POC ABG pH POC ABG pCO2 POC ABG pO2 158 H ABG pO2 ABG HCO3 ABG Base Excess ABG Hemoglobin Oxyhemoglobin Sodium Potassium Chloride Carbon Dioxide BUN Creatinine Glucose POC Glucose 175 H Lactic Acid Calcium Ionized Calcium Phosphorus Magnesium Direct Bilirubin AST ALT Alkaline Phosphatase Lactate Dehydrogenase Troponin T C-Reactive Protein Total Protein Albumin Prealbumin Triglycerides Cholesterol LDL Cholesterol Direct HDL Cholesterol 25-OH Vitamin D Total PTH Intact Urine pH Urine WBC (Auto) Urine Creatinine 66.3 H Urine Total Protein Fluid Total Protein Vancomycin Trough Rheumatoid Factor Complement C4 Miscellaneous Test Crossmatch 09/07/16 09/08/16 09/08/16 23:50 05:46 06:18 WBC 17.8 H RBC 3.58 L Hgb 8.1 L Hct 25.5 L MCV 71 L MCH 23 L MCHC RDW 18.4 H Plt Count Lymph % (Auto) [place] % (Auto) Lymph # [place] # Baso # Seg Neutrophils % Seg Neuts % (Manual) 92.0 H Lymphocytes % (Manual) 6.0 L Monocytes % (Manual) Eosinophils % (Manual) Basophils % (Manual) Nucleated RBC % Seg Neutrophils # Seg Neutrophils # Man 16.4 H Lymphocytes # (Manual) 1.1 L Monocytes # (Manual) Eosinophils # (Manual) Basophils # (Manual) PT INR Fibrinogen dRVVT Confirm Interp Factor V Activity POC ABG pH POC ABG pCO2 34.3 L POC ABG pO2 71 L ABG pO2 ABG HCO3 ABG Base Excess ABG Hemoglobin Oxyhemoglobin Sodium Potassium Chloride Carbon Dioxide BUN Creatinine Glucose POC Glucose 216 H Lactic Acid Calcium Ionized Calcium Phosphorus Magnesium Direct Bilirubin AST ALT Alkaline Phosphatase Lactate Dehydrogenase Troponin T C-Reactive Protein Total Protein Albumin Prealbumin Triglycerides Cholesterol LDL Cholesterol Direct HDL Cholesterol 25-OH Vitamin D Total PTH Intact Urine pH Urine WBC (Auto) Urine Creatinine Urine Total Protein Fluid Total Protein Vancomycin Trough Rheumatoid Factor Complement C4 Miscellaneous Test Crossmatch 09/08/16 09/08/16 09/08/16 06:18 06:51 10:55 WBC RBC Hgb Hct MCV MCH MCHC RDW Plt Count Lymph % (Auto) [place] % (Auto) Lymph # [place] # Baso # Seg Neutrophils % Seg Neuts % (Manual) Lymphocytes % (Manual) Monocytes % (Manual) Eosinophils % (Manual) Basophils % (Manual) Nucleated RBC % Seg Neutrophils # Seg Neutrophils # Man Lymphocytes # (Manual) Monocytes # (Manual) Eosinophils # (Manual) Basophils # (Manual) PT INR Fibrinogen dRVVT Confirm Interp Factor V Activity POC ABG pH POC ABG pCO2 POC ABG pO2 ABG pO2 ABG HCO3 ABG Base Excess ABG Hemoglobin Oxyhemoglobin Sodium 133 L Potassium Chloride 96.9 L Carbon Dioxide 20 L BUN 63 H Creatinine 2.7 H Glucose 195 H POC Glucose 204 H 169 H Lactic Acid Calcium Ionized Calcium Phosphorus Magnesium Direct Bilirubin AST ALT Alkaline Phosphatase Lactate Dehydrogenase Troponin T C-Reactive Protein Total Protein Albumin Prealbumin Triglycerides Cholesterol LDL Cholesterol Direct HDL Cholesterol 25-OH Vitamin D Total PTH Intact Urine pH Urine WBC (Auto) Urine Creatinine Urine Total Protein Fluid Total Protein Vancomycin Trough Rheumatoid Factor Complement C4 Miscellaneous Test Crossmatch 09/08/16 09/08/16 09/08/16 11:48 11:48 11:48 WBC RBC Hgb Hct MCV MCH MCHC RDW Plt Count Lymph % (Auto) [place] % (Auto) Lymph # [place] # Baso # Seg Neutrophils % Seg Neuts % (Manual) Lymphocytes % (Manual) Monocytes % (Manual) Eosinophils % (Manual) Basophils % (Manual) Nucleated RBC % Seg Neutrophils # Seg Neutrophils # Man Lymphocytes # (Manual) Monocytes # (Manual) Eosinophils # (Manual) Basophils # (Manual) PT INR Fibrinogen 750 H dRVVT Confirm Interp Factor V Activity POC ABG pH POC ABG pCO2 POC ABG pO2 ABG pO2 ABG HCO3 ABG Base Excess ABG Hemoglobin Oxyhemoglobin Sodium Potassium Chloride Carbon Dioxide BUN Creatinine Glucose POC Glucose Lactic Acid Calcium Ionized Calcium Phosphorus Magnesium Direct Bilirubin AST ALT Alkaline Phosphatase Lactate Dehydrogenase Troponin T C-Reactive Protein 15.70 H Total Protein Albumin Prealbumin Triglycerides Cholesterol LDL Cholesterol Direct HDL Cholesterol 25-OH Vitamin D Total PTH Intact Urine pH Urine WBC (Auto) Urine Creatinine Urine Total Protein Fluid Total Protein Vancomycin Trough Rheumatoid Factor 24 H Complement C4 Miscellaneous Test Crossmatch 09/08/16 09/08/16 09/09/16 15:35 18:25 00:24 WBC RBC Hgb Hct MCV MCH MCHC RDW Plt Count Lymph % (Auto) [place] % (Auto) Lymph # [place] # Baso # Seg Neutrophils % Seg Neuts % (Manual) Lymphocytes % (Manual) Monocytes % (Manual) Eosinophils % (Manual) Basophils % (Manual) Nucleated RBC % Seg Neutrophils # Seg Neutrophils # Man Lymphocytes # (Manual) Monocytes # (Manual) Eosinophils # (Manual) Basophils # (Manual) PT INR Fibrinogen dRVVT Confirm Interp Factor V Activity 182 H POC ABG pH POC ABG pCO2 POC ABG pO2 ABG pO2 ABG HCO3 ABG Base Excess ABG Hemoglobin Oxyhemoglobin Sodium Potassium Chloride Carbon Dioxide BUN Creatinine Glucose POC Glucose 184 H 216 H Lactic Acid Calcium Ionized Calcium Phosphorus Magnesium Direct Bilirubin AST ALT Alkaline Phosphatase Lactate Dehydrogenase Troponin T C-Reactive Protein Total Protein Albumin Prealbumin Triglycerides Cholesterol LDL Cholesterol Direct HDL Cholesterol 25-OH Vitamin D Total PTH Intact Urine pH Urine WBC (Auto) Urine Creatinine Urine Total Protein Fluid Total Protein Vancomycin Trough Rheumatoid Factor Complement C4 Miscellaneous Test Crossmatch 09/09/16 09/09/16 09/09/16 03:00 03:00 04:04 WBC 27.9 H RBC Hgb 8.7 L Hct 28.1 L MCV 72 L MCH 22 L MCHC RDW 18.4 H Plt Count 485 H Lymph % (Auto) [place] % (Auto) Lymph # [place] # Baso # Seg Neutrophils % Seg Neuts % (Manual) 77.0 H Lymphocytes % (Manual) 9.0 L Monocytes % (Manual) Eosinophils % (Manual) Basophils % (Manual) Nucleated RBC % Seg Neutrophils # Seg Neutrophils # Man 21.5 H Lymphocytes # (Manual) Monocytes # (Manual) 2.0 H Eosinophils # (Manual) Basophils # (Manual) PT INR Fibrinogen dRVVT Confirm Interp Factor V Activity POC ABG pH POC ABG pCO2 POC ABG pO2 121 H ABG pO2 ABG HCO3 ABG Base Excess ABG Hemoglobin Oxyhemoglobin Sodium 135 L Potassium Chloride 96.3 L Carbon Dioxide 21 L BUN 83 H Creatinine 3.0 H Glucose 135 H POC Glucose Lactic Acid Calcium Ionized Calcium Phosphorus Magnesium Direct Bilirubin AST ALT Alkaline Phosphatase Lactate Dehydrogenase Troponin T C-Reactive Protein Total Protein Albumin Prealbumin Triglycerides Cholesterol LDL Cholesterol Direct HDL Cholesterol 25-OH Vitamin D Total PTH Intact Urine pH Urine WBC (Auto) Urine Creatinine Urine Total Protein Fluid Total Protein Vancomycin Trough Rheumatoid Factor Complement C4 Miscellaneous Test Crossmatch 09/09/16 09/09/16 09/09/16 05:41 11:55 14:13 WBC RBC Hgb Hct MCV MCH MCHC RDW Plt Count Lymph % (Auto) [place] % (Auto) Lymph # [place] # Baso # Seg Neutrophils % Seg Neuts % (Manual) Lymphocytes % (Manual) Monocytes % (Manual) Eosinophils % (Manual) Basophils % (Manual) Nucleated RBC % Seg Neutrophils # Seg Neutrophils # Man Lymphocytes # (Manual) Monocytes # (Manual) Eosinophils # (Manual) Basophils # (Manual) PT INR Fibrinogen dRVVT Confirm Interp Factor V Activity POC ABG pH POC ABG pCO2 POC ABG pO2 ABG pO2 ABG HCO3 ABG Base Excess ABG Hemoglobin Oxyhemoglobin Sodium Potassium Chloride Carbon Dioxide BUN Creatinine Glucose POC Glucose 155 H 186 H Lactic Acid Calcium Ionized Calcium Phosphorus Magnesium Direct Bilirubin AST ALT Alkaline Phosphatase Lactate Dehydrogenase Troponin T C-Reactive Protein Total Protein Albumin Prealbumin Triglycerides Cholesterol LDL Cholesterol Direct HDL Cholesterol 25-OH Vitamin D Total PTH Intact Urine pH Urine WBC (Auto) 25.0 H Urine Creatinine Urine Total Protein Fluid Total Protein Vancomycin Trough Rheumatoid Factor Complement C4 Miscellaneous Test Crossmatch 09/09/16 09/09/16 09/10/16 17:33 23:13 05:09 WBC RBC Hgb Hct MCV MCH MCHC RDW Plt Count Lymph % (Auto) [place] % (Auto) Lymph # [place] # Baso # Seg Neutrophils % Seg Neuts % (Manual) Lymphocytes % (Manual) Monocytes % (Manual) Eosinophils % (Manual) Basophils % (Manual) Nucleated RBC % Seg Neutrophils # Seg Neutrophils # Man Lymphocytes # (Manual) Monocytes # (Manual) Eosinophils # (Manual) Basophils # (Manual) PT INR Fibrinogen dRVVT Confirm Interp Factor V Activity POC ABG pH POC ABG pCO2 POC ABG pO2 74 L ABG pO2 ABG HCO3 ABG Base Excess ABG Hemoglobin Oxyhemoglobin Sodium Potassium Chloride Carbon Dioxide BUN Creatinine Glucose POC Glucose 211 H 215 H Lactic Acid Calcium Ionized Calcium Phosphorus Magnesium Direct Bilirubin AST ALT Alkaline Phosphatase Lactate Dehydrogenase Troponin T C-Reactive Protein Total Protein Albumin Prealbumin Triglycerides Cholesterol LDL Cholesterol Direct HDL Cholesterol 25-OH Vitamin D Total PTH Intact Urine pH Urine WBC (Auto) Urine Creatinine Urine Total Protein Fluid Total Protein Vancomycin Trough Rheumatoid Factor Complement C4 Miscellaneous Test Crossmatch 09/10/16 09/10/16 09/10/16 05:17 05:17 11:31 WBC 15.8 H RBC 3.25 L Hgb 7.3 L Hct 22.9 L MCV 71 L MCH 23 L MCHC RDW 18.4 H Plt Count Lymph % (Auto) [place] % (Auto) Lymph # [place] # Baso # Seg Neutrophils % Seg Neuts % (Manual) 91.0 H Lymphocytes % (Manual) 4.0 L Monocytes % (Manual) Eosinophils % (Manual) Basophils % (Manual) Nucleated RBC % Seg Neutrophils # Seg Neutrophils # Man 14.4 H Lymphocytes # (Manual) 0.6 L Monocytes # (Manual) Eosinophils # (Manual) Basophils # (Manual) PT INR Fibrinogen dRVVT Confirm Interp Factor V Activity POC ABG pH POC ABG pCO2 POC ABG pO2 ABG pO2 ABG HCO3 ABG Base Excess ABG Hemoglobin Oxyhemoglobin Sodium Potassium Chloride Carbon Dioxide 21 L BUN 93 H Creatinine 2.9 H Glucose 146 H POC Glucose 188 H Lactic Acid Calcium 8.1 L Ionized Calcium Phosphorus Magnesium Direct Bilirubin AST ALT Alkaline Phosphatase Lactate Dehydrogenase Troponin T C-Reactive Protein Total Protein Albumin Prealbumin Triglycerides Cholesterol LDL Cholesterol Direct HDL Cholesterol 25-OH Vitamin D Total PTH Intact Urine pH Urine WBC (Auto) Urine Creatinine Urine Total Protein Fluid Total Protein Vancomycin Trough Rheumatoid Factor Complement C4 Miscellaneous Test Crossmatch 09/10/16 09/10/16 09/10/16 13:17 17:20 23:32 WBC RBC Hgb Hct MCV MCH MCHC RDW Plt Count Lymph % (Auto) [place] % (Auto) Lymph # [place] # Baso # Seg Neutrophils % Seg Neuts % (Manual) Lymphocytes % (Manual) Monocytes % (Manual) Eosinophils % (Manual) Basophils % (Manual) Nucleated RBC % Seg Neutrophils # Seg Neutrophils # Man Lymphocytes # (Manual) Monocytes # (Manual) Eosinophils # (Manual) Basophils # (Manual) PT INR Fibrinogen dRVVT Confirm Interp Factor V Activity POC ABG pH POC ABG pCO2 POC ABG pO2 ABG pO2 ABG HCO3 ABG Base Excess ABG Hemoglobin Oxyhemoglobin Sodium Potassium Chloride Carbon Dioxide BUN Creatinine Glucose POC Glucose 199 H 186 H Lactic Acid Calcium Ionized Calcium Phosphorus Magnesium Direct Bilirubin AST ALT Alkaline Phosphatase Lactate Dehydrogenase Troponin T C-Reactive Protein Total Protein Albumin Prealbumin Triglycerides Cholesterol LDL Cholesterol Direct HDL Cholesterol 25-OH Vitamin D Total PTH Intact Urine pH Urine WBC (Auto) Urine Creatinine Urine Total Protein Fluid Total Protein Vancomycin Trough Rheumatoid Factor Complement C4 Miscellaneous Test Crossmatch See Detail 09/11/16 09/11/16 09/11/16 05:10 05:10 05:17 WBC 28.4 H RBC Hgb 9.2 L Hct 29.3 L D MCV 73 L MCH 23 L MCHC RDW 18.9 H Plt Count 452 H Lymph % (Auto) [place] % (Auto) Lymph # [place] # Baso # Seg Neutrophils % Seg Neuts % (Manual) 89.5 H Lymphocytes % (Manual) 2.0 L Monocytes % (Manual) Eosinophils % (Manual) Basophils % (Manual) Nucleated RBC % Seg Neutrophils # Seg Neutrophils # Man 25.4 H Lymphocytes # (Manual) 0.6 L Monocytes # (Manual) 1.3 H Eosinophils # (Manual) Basophils # (Manual) PT INR Fibrinogen dRVVT Confirm Interp Factor V Activity POC ABG pH POC ABG pCO2 POC ABG pO2 ABG pO2 ABG HCO3 ABG Base Excess ABG Hemoglobin Oxyhemoglobin Sodium 136 L Potassium Chloride Carbon Dioxide 18 L BUN 107 H Creatinine 2.6 H Glucose 187 H POC Glucose 230 H Lactic Acid Calcium 8.3 L Ionized Calcium Phosphorus Magnesium Direct Bilirubin AST ALT Alkaline Phosphatase Lactate Dehydrogenase Troponin T C-Reactive Protein Total Protein Albumin Prealbumin Triglycerides Cholesterol LDL Cholesterol Direct HDL Cholesterol 25-OH Vitamin D Total PTH Intact Urine pH Urine WBC (Auto) Urine Creatinine Urine Total Protein Fluid Total Protein Vancomycin Trough Rheumatoid Factor Complement C4 Miscellaneous Test Crossmatch 09/11/16 09/11/16 09/11/16 05:55 12:02 17:32 WBC RBC Hgb Hct MCV MCH MCHC RDW Plt Count Lymph % (Auto) [place] % (Auto) Lymph # [place] # Baso # Seg Neutrophils % Seg Neuts % (Manual) Lymphocytes % (Manual) Monocytes % (Manual) Eosinophils % (Manual) Basophils % (Manual) Nucleated RBC % Seg Neutrophils # Seg Neutrophils # Man Lymphocytes # (Manual) Monocytes # (Manual) Eosinophils # (Manual) Basophils # (Manual) PT INR Fibrinogen dRVVT Confirm Interp Factor V Activity POC ABG pH POC ABG pCO2 33.8 L POC ABG pO2 ABG pO2 ABG HCO3 ABG Base Excess ABG Hemoglobin Oxyhemoglobin Sodium Potassium Chloride Carbon Dioxide BUN Creatinine Glucose POC Glucose 191 H 239 H Lactic Acid Calcium Ionized Calcium Phosphorus Magnesium Direct Bilirubin AST ALT Alkaline Phosphatase Lactate Dehydrogenase Troponin T C-Reactive Protein Total Protein Albumin Prealbumin Triglycerides Cholesterol LDL Cholesterol Direct HDL Cholesterol 25-OH Vitamin D Total PTH Intact Urine pH Urine WBC (Auto) Urine Creatinine Urine Total Protein Fluid Total Protein Vancomycin Trough Rheumatoid Factor Complement C4 Miscellaneous Test Crossmatch 09/11/16 09/12/16 09/12/16 23:52 05:09 05:32 WBC RBC Hgb Hct MCV MCH MCHC RDW Plt Count Lymph % (Auto) [place] % (Auto) Lymph # [place] # Baso # Seg Neutrophils % Seg Neuts % (Manual) Lymphocytes % (Manual) Monocytes % (Manual) Eosinophils % (Manual) Basophils % (Manual) Nucleated RBC % Seg Neutrophils # Seg Neutrophils # Man Lymphocytes # (Manual) Monocytes # (Manual) Eosinophils # (Manual) Basophils # (Manual) PT INR Fibrinogen dRVVT Confirm Interp Factor V Activity POC ABG pH POC ABG pCO2 34.6 L POC ABG pO2 ABG pO2 ABG HCO3 ABG Base Excess ABG Hemoglobin Oxyhemoglobin Sodium Potassium Chloride Carbon Dioxide BUN Creatinine Glucose POC Glucose 265 H 184 H Lactic Acid Calcium Ionized Calcium Phosphorus Magnesium Direct Bilirubin AST ALT Alkaline Phosphatase Lactate Dehydrogenase Troponin T C-Reactive Protein Total Protein Albumin Prealbumin Triglycerides Cholesterol LDL Cholesterol Direct HDL Cholesterol 25-OH Vitamin D Total PTH Intact Urine pH Urine WBC (Auto) Urine Creatinine Urine Total Protein Fluid Total Protein Vancomycin Trough Rheumatoid Factor Complement C4 Miscellaneous Test Crossmatch 09/12/16 09/12/16 09/12/16 06:45 06:45 07:22 WBC 31.7 H RBC 3.54 L Hgb 8.3 L Hct 25.9 L MCV 73 L MCH 23 L MCHC RDW 18.9 H Plt Count Lymph % (Auto) [place] % (Auto) Lymph # [place] # Baso # Seg Neutrophils % Seg Neuts % (Manual) 88.5 H Lymphocytes % (Manual) 4.5 L Monocytes % (Manual) Eosinophils % (Manual) Basophils % (Manual) Nucleated RBC % Seg Neutrophils # Seg Neutrophils # Man 28.1 H Lymphocytes # (Manual) Monocytes # (Manual) 1.0 H Eosinophils # (Manual) Basophils # (Manual) PT INR Fibrinogen dRVVT Confirm Interp Factor V Activity POC ABG pH POC ABG pCO2 POC ABG pO2 ABG pO2 ABG HCO3 ABG Base Excess ABG Hemoglobin Oxyhemoglobin Sodium Potassium Chloride Carbon Dioxide 20 L BUN 115 H Creatinine 2.7 H Glucose 165 H POC Glucose Lactic Acid Calcium 8.0 L Ionized Calcium Phosphorus Magnesium Direct Bilirubin AST ALT Alkaline Phosphatase Lactate Dehydrogenase Troponin T C-Reactive Protein Total Protein Albumin Prealbumin Triglycerides 217 H Cholesterol LDL Cholesterol Direct HDL Cholesterol 25-OH Vitamin D Total PTH Intact Urine pH Urine WBC (Auto) Urine Creatinine Urine Total Protein Fluid Total Protein Vancomycin Trough Rheumatoid Factor Complement C4 Miscellaneous Test Crossmatch 09/12/16 09/12/16 09/12/16 07:22 09:59 12:21 WBC RBC Hgb Hct MCV MCH MCHC RDW Plt Count Lymph % (Auto) [place] % (Auto) Lymph # [place] # Baso # Seg Neutrophils % Seg Neuts % (Manual) Lymphocytes % (Manual) Monocytes % (Manual) Eosinophils % (Manual) Basophils % (Manual) Nucleated RBC % Seg Neutrophils # Seg Neutrophils # Man Lymphocytes # (Manual) Monocytes # (Manual) Eosinophils # (Manual) Basophils # (Manual) PT INR Fibrinogen dRVVT Confirm Interp Positive H Factor V Activity POC ABG pH POC ABG pCO2 POC ABG pO2 ABG pO2 ABG HCO3 ABG Base Excess ABG Hemoglobin Oxyhemoglobin Sodium Potassium Chloride Carbon Dioxide BUN Creatinine Glucose POC Glucose 224 H Lactic Acid Calcium Ionized Calcium Phosphorus Magnesium Direct Bilirubin AST ALT Alkaline Phosphatase Lactate Dehydrogenase Troponin T C-Reactive Protein 1.70 H Total Protein Albumin Prealbumin Triglycerides Cholesterol LDL Cholesterol Direct HDL Cholesterol 25-OH Vitamin D Total PTH Intact Urine pH Urine WBC (Auto) Urine Creatinine Urine Total Protein Fluid Total Protein Vancomycin Trough Rheumatoid Factor Complement C4 Miscellaneous Test Crossmatch 09/12/16 09/12/16 09/13/16 16:51 23:28 04:00 WBC 45.0 H* RBC Hgb 9.4 L Hct MCV 75 L MCH 23 L MCHC RDW 19.0 H Plt Count 470 H Lymph % (Auto) [place] % (Auto) Lymph # [place] # Baso # Seg Neutrophils % Seg Neuts % (Manual) 89.0 H Lymphocytes % (Manual) 5.0 L Monocytes % (Manual) Eosinophils % (Manual) Basophils % (Manual) Nucleated RBC % Seg Neutrophils # Seg Neutrophils # Man 40.1 H Lymphocytes # (Manual) Monocytes # (Manual) Eosinophils # (Manual) Basophils # (Manual) PT INR Fibrinogen dRVVT Confirm Interp Factor V Activity POC ABG pH POC ABG pCO2 POC ABG pO2 ABG pO2 ABG HCO3 ABG Base Excess ABG Hemoglobin Oxyhemoglobin Sodium Potassium Chloride Carbon Dioxide BUN Creatinine Glucose POC Glucose 169 H 150 H Lactic Acid Calcium Ionized Calcium Phosphorus Magnesium Direct Bilirubin AST ALT Alkaline Phosphatase Lactate Dehydrogenase Troponin T C-Reactive Protein Total Protein Albumin Prealbumin Triglycerides Cholesterol LDL Cholesterol Direct HDL Cholesterol 25-OH Vitamin D Total PTH Intact Urine pH Urine WBC (Auto) Urine Creatinine Urine Total Protein Fluid Total Protein Vancomycin Trough Rheumatoid Factor Complement C4 Miscellaneous Test Crossmatch 09/13/16 09/13/16 09/13/16 04:00 11:26 17:31 WBC RBC Hgb Hct MCV MCH MCHC RDW Plt Count Lymph % (Auto) [place] % (Auto) Lymph # [place] # Baso # Seg Neutrophils % Seg Neuts % (Manual) Lymphocytes % (Manual) Monocytes % (Manual) Eosinophils % (Manual) Basophils % (Manual) Nucleated RBC % Seg Neutrophils # Seg Neutrophils # Man Lymphocytes # (Manual) Monocytes # (Manual) Eosinophils # (Manual) Basophils # (Manual) PT INR Fibrinogen dRVVT Confirm Interp Factor V Activity POC ABG pH POC ABG pCO2 POC ABG pO2 ABG pO2 ABG HCO3 ABG Base Excess ABG Hemoglobin Oxyhemoglobin Sodium Potassium Chloride Carbon Dioxide 20 L BUN 116 H Creatinine 3.0 H Glucose 172 H POC Glucose 140 H 183 H Lactic Acid Calcium Ionized Calcium Phosphorus Magnesium Direct Bilirubin AST ALT Alkaline Phosphatase Lactate Dehydrogenase Troponin T C-Reactive Protein Total Protein 6.2 L Albumin 2.9 L Prealbumin Triglycerides Cholesterol LDL Cholesterol Direct HDL Cholesterol 25-OH Vitamin D Total PTH Intact Urine pH Urine WBC (Auto) Urine Creatinine Urine Total Protein Fluid Total Protein Vancomycin Trough Rheumatoid Factor Complement C4 Miscellaneous Test Crossmatch 09/13/16 09/14/16 09/14/16 23:23 04:06 04:07 WBC 29.4 H RBC Hgb 8.9 L Hct 27.3 L MCV 75 L MCH 24 L MCHC RDW 19.1 H Plt Count Lymph % (Auto) [place] % (Auto) Lymph # [place] # Baso # Seg Neutrophils % Seg Neuts % (Manual) 84.0 H Lymphocytes % (Manual) 6.0 L Monocytes % (Manual) 9.0 H Eosinophils % (Manual) Basophils % (Manual) Nucleated RBC % Seg Neutrophils # Seg Neutrophils # Man 24.7 H Lymphocytes # (Manual) Monocytes # (Manual) 2.6 H Eosinophils # (Manual) Basophils # (Manual) PT INR Fibrinogen dRVVT Confirm Interp Factor V Activity POC ABG pH 7.342 L POC ABG pCO2 POC ABG pO2 116 H ABG pO2 ABG HCO3 ABG Base Excess ABG Hemoglobin Oxyhemoglobin Sodium Potassium Chloride Carbon Dioxide BUN Creatinine Glucose POC Glucose 154 H Lactic Acid Calcium Ionized Calcium Phosphorus Magnesium Direct Bilirubin AST ALT Alkaline Phosphatase Lactate Dehydrogenase Troponin T C-Reactive Protein Total Protein Albumin Prealbumin Triglycerides Cholesterol LDL Cholesterol Direct HDL Cholesterol 25-OH Vitamin D Total PTH Intact Urine pH Urine WBC (Auto) Urine Creatinine Urine Total Protein Fluid Total Protein Vancomycin Trough Rheumatoid Factor Complement C4 Miscellaneous Test Crossmatch 09/14/16 09/14/16 09/14/16 04:07 05:29 12:19 WBC RBC Hgb Hct MCV MCH MCHC RDW Plt Count Lymph % (Auto) [place] % (Auto) Lymph # [place] # Baso # Seg Neutrophils % Seg Neuts % (Manual) Lymphocytes % (Manual) Monocytes % (Manual) Eosinophils % (Manual) Basophils % (Manual) Nucleated RBC % Seg Neutrophils # Seg Neutrophils # Man Lymphocytes # (Manual) Monocytes # (Manual) Eosinophils # (Manual) Basophils # (Manual) PT INR Fibrinogen dRVVT Confirm Interp Factor V Activity POC ABG pH POC ABG pCO2 POC ABG pO2 ABG pO2 ABG HCO3 ABG Base Excess ABG Hemoglobin Oxyhemoglobin Sodium 136 L Potassium Chloride Carbon Dioxide 18 L BUN 121 H Creatinine 2.8 H Glucose 214 H POC Glucose 239 H 181 H Lactic Acid Calcium Ionized Calcium Phosphorus Magnesium Direct Bilirubin AST ALT Alkaline Phosphatase Lactate Dehydrogenase Troponin T C-Reactive Protein Total Protein Albumin Prealbumin Triglycerides Cholesterol LDL Cholesterol Direct HDL Cholesterol 25-OH Vitamin D Total PTH Intact Urine pH Urine WBC (Auto) Urine Creatinine Urine Total Protein Fluid Total Protein Vancomycin Trough Rheumatoid Factor Complement C4 Miscellaneous Test Crossmatch 09/14/16 09/14/16 09/15/16 18:12 23:37 05:00 WBC 26.1 H RBC 3.05 L Hgb 7.2 L Hct 22.9 L MCV 75 L MCH 24 L MCHC RDW 19.0 H Plt Count Lymph % (Auto) [place] % (Auto) Lymph # [place] # Baso # Seg Neutrophils % Seg Neuts % (Manual) Lymphocytes % (Manual) Monocytes % (Manual) Eosinophils % (Manual) Basophils % (Manual) Nucleated RBC % Seg Neutrophils # Seg Neutrophils # Man Lymphocytes # (Manual) Monocytes # (Manual) Eosinophils # (Manual) Basophils # (Manual) PT INR Fibrinogen dRVVT Confirm Interp Factor V Activity POC ABG pH POC ABG pCO2 POC ABG pO2 ABG pO2 ABG HCO3 ABG Base Excess ABG Hemoglobin Oxyhemoglobin Sodium Potassium Chloride Carbon Dioxide BUN Creatinine Glucose POC Glucose 266 H 154 H Lactic Acid Calcium Ionized Calcium Phosphorus Magnesium Direct Bilirubin AST ALT Alkaline Phosphatase Lactate Dehydrogenase Troponin T C-Reactive Protein Total Protein Albumin Prealbumin Triglycerides Cholesterol LDL Cholesterol Direct HDL Cholesterol 25-OH Vitamin D Total PTH Intact Urine pH Urine WBC (Auto) Urine Creatinine Urine Total Protein Fluid Total Protein Vancomycin Trough Rheumatoid Factor Complement C4 Miscellaneous Test Crossmatch 09/15/16 09/15/16 09/15/16 05:00 05:17 12:45 WBC RBC Hgb Hct MCV MCH MCHC RDW Plt Count Lymph % (Auto) [place] % (Auto) Lymph # [place] # Baso # Seg Neutrophils % Seg Neuts % (Manual) Lymphocytes % (Manual) Monocytes % (Manual) Eosinophils % (Manual) Basophils % (Manual) Nucleated RBC % Seg Neutrophils # Seg Neutrophils # Man Lymphocytes # (Manual) Monocytes # (Manual) Eosinophils # (Manual) Basophils # (Manual) PT INR Fibrinogen dRVVT Confirm Interp Factor V Activity POC ABG pH POC ABG pCO2 POC ABG pO2 ABG pO2 ABG HCO3 ABG Base Excess ABG Hemoglobin Oxyhemoglobin Sodium Potassium 5.2 H Chloride Carbon Dioxide 18 L BUN 139 H Creatinine 3.7 H Glucose 227 H POC Glucose 226 H 244 H Lactic Acid Calcium 8.3 L Ionized Calcium Phosphorus Magnesium Direct Bilirubin AST ALT Alkaline Phosphatase Lactate Dehydrogenase Troponin T C-Reactive Protein Total Protein Albumin Prealbumin Triglycerides Cholesterol LDL Cholesterol Direct HDL Cholesterol 25-OH Vitamin D Total PTH Intact Urine pH Urine WBC (Auto) Urine Creatinine Urine Total Protein Fluid Total Protein Vancomycin Trough Rheumatoid Factor Complement C4 Miscellaneous Test Crossmatch 09/15/16 09/15/16 09/15/16 14:32 17:33 23:35 WBC RBC Hgb Hct MCV MCH MCHC RDW Plt Count Lymph % (Auto) [place] % (Auto) Lymph # [place] # Baso # Seg Neutrophils % Seg Neuts % (Manual) Lymphocytes % (Manual) Monocytes % (Manual) Eosinophils % (Manual) Basophils % (Manual) Nucleated RBC % Seg Neutrophils # Seg Neutrophils # Man Lymphocytes # (Manual) Monocytes # (Manual) Eosinophils # (Manual) Basophils # (Manual) PT INR Fibrinogen dRVVT Confirm Interp Factor V Activity POC ABG pH POC ABG pCO2 27.7 L POC ABG pO2 120 H ABG pO2 ABG HCO3 ABG Base Excess ABG Hemoglobin Oxyhemoglobin Sodium Potassium Chloride Carbon Dioxide BUN Creatinine Glucose POC Glucose 232 H 167 H Lactic Acid Calcium Ionized Calcium Phosphorus Magnesium Direct Bilirubin AST ALT Alkaline Phosphatase Lactate Dehydrogenase Troponin T C-Reactive Protein Total Protein Albumin Prealbumin Triglycerides Cholesterol LDL Cholesterol Direct HDL Cholesterol 25-OH Vitamin D Total PTH Intact Urine pH Urine WBC (Auto) Urine Creatinine Urine Total Protein Fluid Total Protein Vancomycin Trough Rheumatoid Factor Complement C4 Miscellaneous Test Crossmatch 09/16/16 09/16/16 09/16/16 03:58 10:27 10:27 WBC 19.0 H RBC 2.77 L Hgb 6.5 L Hct 20.9 L MCV 76 L MCH 23 L MCHC RDW 19.3 H Plt Count Lymph % (Auto) 11.0 L [place] % (Auto) Lymph # [place] # 1.1 H Baso # Seg Neutrophils % 82.5 H Seg Neuts % (Manual) Lymphocytes % (Manual) Monocytes % (Manual) Eosinophils % (Manual) Basophils % (Manual) Nucleated RBC % Seg Neutrophils # 15.7 H Seg Neutrophils # Man Lymphocytes # (Manual) Monocytes # (Manual) Eosinophils # (Manual) Basophils # (Manual) PT INR Fibrinogen dRVVT Confirm Interp Factor V Activity POC ABG pH POC ABG pCO2 POC ABG pO2 ABG pO2 ABG HCO3 ABG Base Excess ABG Hemoglobin Oxyhemoglobin Sodium Potassium Chloride 109.3 H Carbon Dioxide 18 L BUN 139 H Creatinine 4.1 H Glucose 144 H POC Glucose 146 H Lactic Acid Calcium 8.1 L Ionized Calcium Phosphorus Magnesium Direct Bilirubin AST ALT Alkaline Phosphatase Lactate Dehydrogenase Troponin T C-Reactive Protein Total Protein Albumin Prealbumin Triglycerides Cholesterol LDL Cholesterol Direct HDL Cholesterol 25-OH Vitamin D Total PTH Intact Urine pH Urine WBC (Auto) Urine Creatinine Urine Total Protein Fluid Total Protein Vancomycin Trough Rheumatoid Factor Complement C4 Miscellaneous Test Crossmatch 09/16/16 09/16/16 09/16/16 12:04 12:10 13:55 WBC RBC Hgb Hct MCV MCH MCHC RDW Plt Count Lymph % (Auto) [place] % (Auto) Lymph # [place] # Baso # Seg Neutrophils % Seg Neuts % (Manual) Lymphocytes % (Manual) Monocytes % (Manual) Eosinophils % (Manual) Basophils % (Manual) Nucleated RBC % Seg Neutrophils # Seg Neutrophils # Man Lymphocytes # (Manual) Monocytes # (Manual) Eosinophils # (Manual) Basophils # (Manual) PT INR Fibrinogen dRVVT Confirm Interp Factor V Activity POC ABG pH POC ABG pCO2 32.9 L POC ABG pO2 ABG pO2 ABG HCO3 ABG Base Excess ABG Hemoglobin Oxyhemoglobin Sodium Potassium Chloride Carbon Dioxide BUN Creatinine Glucose POC Glucose 185 H Lactic Acid Calcium Ionized Calcium Phosphorus Magnesium Direct Bilirubin AST ALT Alkaline Phosphatase Lactate Dehydrogenase Troponin T C-Reactive Protein Total Protein Albumin Prealbumin Triglycerides Cholesterol LDL Cholesterol Direct HDL Cholesterol 25-OH Vitamin D Total PTH Intact Urine pH Urine WBC (Auto) Urine Creatinine Urine Total Protein Fluid Total Protein Vancomycin Trough Rheumatoid Factor Complement C4 Miscellaneous Test Crossmatch See Detail 09/16/16 09/16/16 09/16/16 17:55 19:19 23:48 WBC RBC Hgb Hct MCV MCH MCHC RDW Plt Count Lymph % (Auto) [place] % (Auto) Lymph # [place] # Baso # Seg Neutrophils % Seg Neuts % (Manual) Lymphocytes % (Manual) Monocytes % (Manual) Eosinophils % (Manual) Basophils % (Manual) Nucleated RBC % Seg Neutrophils # Seg Neutrophils # Man Lymphocytes # (Manual) Monocytes # (Manual) Eosinophils # (Manual) Basophils # (Manual) PT INR Fibrinogen dRVVT Confirm Interp Factor V Activity POC ABG pH POC ABG pCO2 POC ABG pO2 ABG pO2 ABG HCO3 ABG Base Excess ABG Hemoglobin Oxyhemoglobin Sodium Potassium Chloride Carbon Dioxide BUN Creatinine Glucose POC Glucose 222 H 107 H Lactic Acid Calcium Ionized Calcium Phosphorus Magnesium Direct Bilirubin AST ALT Alkaline Phosphatase Lactate Dehydrogenase Troponin T C-Reactive Protein Total Protein Albumin Prealbumin Triglycerides Cholesterol LDL Cholesterol Direct HDL Cholesterol 25-OH Vitamin D Total PTH Intact Urine pH Urine WBC (Auto) Urine Creatinine 47.4 H Urine Total Protein 16 H Fluid Total Protein Vancomycin Trough Rheumatoid Factor Complement C4 Miscellaneous Test Crossmatch 09/17/16 09/17/16 09/17/16 03:45 03:45 04:55 WBC 19.6 H RBC 3.41 L Hgb 8.5 L Hct 26.7 L MCV 78 L MCH 25 L MCHC RDW 19.9 H Plt Count Lymph % (Auto) 9.3 L [place] % (Auto) Lymph # [place] # 1.2 H Baso # Seg Neutrophils % 83.9 H Seg Neuts % (Manual) Lymphocytes % (Manual) Monocytes % (Manual) Eosinophils % (Manual) Basophils % (Manual) Nucleated RBC % Seg Neutrophils # 16.4 H Seg Neutrophils # Man Lymphocytes # (Manual) Monocytes # (Manual) Eosinophils # (Manual) Basophils # (Manual) PT INR Fibrinogen dRVVT Confirm Interp Factor V Activity POC ABG pH POC ABG pCO2 POC ABG pO2 ABG pO2 ABG HCO3 ABG Base Excess ABG Hemoglobin Oxyhemoglobin Sodium 146 H Potassium 5.1 H Chloride 110.9 H Carbon Dioxide 16 L BUN 146 H Creatinine 4.0 H Glucose 108 H POC Glucose 133 H Lactic Acid Calcium Ionized Calcium Phosphorus Magnesium 3.00 H Direct Bilirubin AST ALT Alkaline Phosphatase Lactate Dehydrogenase Troponin T C-Reactive Protein Total Protein Albumin Prealbumin Triglycerides Cholesterol LDL Cholesterol Direct HDL Cholesterol 25-OH Vitamin D Total PTH Intact Urine pH Urine WBC (Auto) Urine Creatinine Urine Total Protein Fluid Total Protein Vancomycin Trough Rheumatoid Factor Complement C4 Miscellaneous Test Crossmatch 09/17/16 09/17/16 09/17/16 11:15 17:33 23:47 WBC RBC Hgb Hct MCV MCH MCHC RDW Plt Count Lymph % (Auto) [place] % (Auto) Lymph # [place] # Baso # Seg Neutrophils % Seg Neuts % (Manual) Lymphocytes % (Manual) Monocytes % (Manual) Eosinophils % (Manual) Basophils % (Manual) Nucleated RBC % Seg Neutrophils # Seg Neutrophils # Man Lymphocytes # (Manual) Monocytes # (Manual) Eosinophils # (Manual) Basophils # (Manual) PT INR Fibrinogen dRVVT Confirm Interp Factor V Activity POC ABG pH POC ABG pCO2 POC ABG pO2 ABG pO2 ABG HCO3 ABG Base Excess ABG Hemoglobin Oxyhemoglobin Sodium Potassium Chloride Carbon Dioxide BUN Creatinine Glucose POC Glucose 176 H 246 H 148 H Lactic Acid Calcium Ionized Calcium Phosphorus Magnesium Direct Bilirubin AST ALT Alkaline Phosphatase Lactate Dehydrogenase Troponin T C-Reactive Protein Total Protein Albumin Prealbumin Triglycerides Cholesterol LDL Cholesterol Direct HDL Cholesterol 25-OH Vitamin D Total PTH Intact Urine pH Urine WBC (Auto) Urine Creatinine Urine Total Protein Fluid Total Protein Vancomycin Trough Rheumatoid Factor Complement C4 Miscellaneous Test Crossmatch 09/18/16 09/18/16 09/18/16 05:33 08:31 08:31 WBC 18.0 H RBC 3.17 L Hgb 9.0 L Hct 25.7 L MCV MCH MCHC 35 H RDW 20.4 H Plt Count Lymph % (Auto) [place] % (Auto) Lymph # [place] # Baso # Seg Neutrophils % Seg Neuts % (Manual) Lymphocytes % (Manual) Monocytes % (Manual) Eosinophils % (Manual) Basophils % (Manual) Nucleated RBC % Seg Neutrophils # Seg Neutrophils # Man Lymphocytes # (Manual) Monocytes # (Manual) Eosinophils # (Manual) Basophils # (Manual) PT INR Fibrinogen dRVVT Confirm Interp Factor V Activity POC ABG pH POC ABG pCO2 POC ABG pO2 ABG pO2 ABG HCO3 ABG Base Excess ABG Hemoglobin Oxyhemoglobin Sodium Potassium Chloride Carbon Dioxide 15 L BUN 124 H Creatinine 3.8 H Glucose POC Glucose 120 H Lactic Acid Calcium 8.1 L Ionized Calcium Phosphorus Magnesium Direct Bilirubin AST ALT Alkaline Phosphatase Lactate Dehydrogenase Troponin T C-Reactive Protein Total Protein Albumin Prealbumin Triglycerides Cholesterol LDL Cholesterol Direct HDL Cholesterol 25-OH Vitamin D Total PTH Intact Urine pH Urine WBC (Auto) Urine Creatinine Urine Total Protein Fluid Total Protein Vancomycin Trough Rheumatoid Factor Complement C4 Miscellaneous Test Crossmatch 09/18/16 09/18/16 09/18/16 12:03 15:34 17:50 WBC RBC Hgb Hct MCV MCH MCHC RDW Plt Count Lymph % (Auto) [place] % (Auto) Lymph # [place] # Baso # Seg Neutrophils % Seg Neuts % (Manual) Lymphocytes % (Manual) Monocytes % (Manual) Eosinophils % (Manual) Basophils % (Manual) Nucleated RBC % Seg Neutrophils # Seg Neutrophils # Man Lymphocytes # (Manual) Monocytes # (Manual) Eosinophils # (Manual) Basophils # (Manual) PT INR Fibrinogen dRVVT Confirm Interp Factor V Activity POC ABG pH POC ABG pCO2 25.7 L POC ABG pO2 66 L ABG pO2 ABG HCO3 ABG Base Excess ABG Hemoglobin Oxyhemoglobin Sodium Potassium Chloride Carbon Dioxide BUN Creatinine Glucose POC Glucose 156 H 220 H Lactic Acid Calcium Ionized Calcium Phosphorus Magnesium Direct Bilirubin AST ALT Alkaline Phosphatase Lactate Dehydrogenase Troponin T C-Reactive Protein Total Protein Albumin Prealbumin Triglycerides Cholesterol LDL Cholesterol Direct HDL Cholesterol 25-OH Vitamin D Total PTH Intact Urine pH Urine WBC (Auto) Urine Creatinine Urine Total Protein Fluid Total Protein Vancomycin Trough Rheumatoid Factor Complement C4 Miscellaneous Test Crossmatch 09/19/16 09/19/16 09/19/16 06:21 09:50 09:50 WBC 17.1 H RBC 3.49 L Hgb 9.0 L Hct 28.1 L MCV MCH 26 L MCHC RDW 20.8 H Plt Count Lymph % (Auto) 11.5 L [place] % (Auto) 7.5 H Lymph # [place] # 1.3 H Baso # Seg Neutrophils % 79.8 H Seg Neuts % (Manual) Lymphocytes % (Manual) Monocytes % (Manual) Eosinophils % (Manual) Basophils % (Manual) Nucleated RBC % Seg Neutrophils # 13.7 H Seg Neutrophils # Man Lymphocytes # (Manual) Monocytes # (Manual) Eosinophils # (Manual) Basophils # (Manual) PT INR Fibrinogen dRVVT Confirm Interp Factor V Activity POC ABG pH POC ABG pCO2 POC ABG pO2 ABG pO2 ABG HCO3 ABG Base Excess ABG Hemoglobin Oxyhemoglobin Sodium Potassium Chloride 108.6 H Carbon Dioxide 15 L BUN 125 H Creatinine 4.1 H Glucose 124 H POC Glucose 119 H Lactic Acid Calcium Ionized Calcium Phosphorus Magnesium Direct Bilirubin AST ALT Alkaline Phosphatase Lactate Dehydrogenase Troponin T C-Reactive Protein Total Protein Albumin Prealbumin Triglycerides Cholesterol LDL Cholesterol Direct HDL Cholesterol 25-OH Vitamin D Total PTH Intact Urine pH Urine WBC (Auto) Urine Creatinine Urine Total Protein Fluid Total Protein Vancomycin Trough Rheumatoid Factor Complement C4 Miscellaneous Test Crossmatch 09/19/16 09/19/16 09/19/16 11:25 17:53 23:36 WBC RBC Hgb Hct MCV MCH MCHC RDW Plt Count Lymph % (Auto) [place] % (Auto) Lymph # [place] # Baso # Seg Neutrophils % Seg Neuts % (Manual) Lymphocytes % (Manual) Monocytes % (Manual) Eosinophils % (Manual) Basophils % (Manual) Nucleated RBC % Seg Neutrophils # Seg Neutrophils # Man Lymphocytes # (Manual) Monocytes # (Manual) Eosinophils # (Manual) Basophils # (Manual) PT INR Fibrinogen dRVVT Confirm Interp Factor V Activity POC ABG pH POC ABG pCO2 POC ABG pO2 ABG pO2 ABG HCO3 ABG Base Excess ABG Hemoglobin Oxyhemoglobin Sodium Potassium Chloride Carbon Dioxide BUN Creatinine Glucose POC Glucose 160 H 245 H 121 H Lactic Acid Calcium Ionized Calcium Phosphorus Magnesium Direct Bilirubin AST ALT Alkaline Phosphatase Lactate Dehydrogenase Troponin T C-Reactive Protein Total Protein Albumin Prealbumin Triglycerides Cholesterol LDL Cholesterol Direct HDL Cholesterol 25-OH Vitamin D Total PTH Intact Urine pH Urine WBC (Auto) Urine Creatinine Urine Total Protein Fluid Total Protein Vancomycin Trough Rheumatoid Factor Complement C4 Miscellaneous Test Crossmatch 09/20/16 09/20/16 09/20/16 04:10 04:10 04:10 WBC 17.0 H RBC 3.21 L Hgb 8.2 L Hct 25.5 L MCV MCH 26 L MCHC RDW 20.9 H Plt Count Lymph % (Auto) [place] % (Auto) Lymph # [place] # Baso # Seg Neutrophils % Seg Neuts % (Manual) Lymphocytes % (Manual) Monocytes % (Manual) Eosinophils % (Manual) Basophils % (Manual) Nucleated RBC % Seg Neutrophils # Seg Neutrophils # Man Lymphocytes # (Manual) Monocytes # (Manual) Eosinophils # (Manual) Basophils # (Manual) PT INR Fibrinogen dRVVT Confirm Interp Factor V Activity POC ABG pH POC ABG pCO2 POC ABG pO2 ABG pO2 ABG HCO3 ABG Base Excess ABG Hemoglobin Oxyhemoglobin Sodium Potassium Chloride 111.0 H Carbon Dioxide 16 L BUN 129 H Creatinine 3.7 H Glucose 115 H POC Glucose Lactic Acid Calcium 8.2 L Ionized Calcium Phosphorus Magnesium Direct Bilirubin AST ALT Alkaline Phosphatase Lactate Dehydrogenase Troponin T C-Reactive Protein Total Protein Albumin Prealbumin Triglycerides 243 H Cholesterol LDL Cholesterol Direct HDL Cholesterol 25-OH Vitamin D Total PTH Intact Urine pH Urine WBC (Auto) Urine Creatinine Urine Total Protein Fluid Total Protein Vancomycin Trough Rheumatoid Factor Complement C4 Miscellaneous Test Crossmatch 09/20/16 09/20/16 09/20/16 05:40 11:52 16:50 WBC RBC Hgb Hct MCV MCH MCHC RDW Plt Count Lymph % (Auto) [place] % (Auto) Lymph # [place] # Baso # Seg Neutrophils % Seg Neuts % (Manual) Lymphocytes % (Manual) Monocytes % (Manual) Eosinophils % (Manual) Basophils % (Manual) Nucleated RBC % Seg Neutrophils # Seg Neutrophils # Man Lymphocytes # (Manual) Monocytes # (Manual) Eosinophils # (Manual) Basophils # (Manual) PT INR Fibrinogen dRVVT Confirm Interp Factor V Activity POC ABG pH POC ABG pCO2 POC ABG pO2 ABG pO2 ABG HCO3 ABG Base Excess ABG Hemoglobin Oxyhemoglobin Sodium Potassium Chloride Carbon Dioxide BUN Creatinine Glucose POC Glucose 131 H 183 H 236 H Lactic Acid Calcium Ionized Calcium Phosphorus Magnesium Direct Bilirubin AST ALT Alkaline Phosphatase Lactate Dehydrogenase Troponin T C-Reactive Protein Total Protein Albumin Prealbumin Triglycerides Cholesterol LDL Cholesterol Direct HDL Cholesterol 25-OH Vitamin D Total PTH Intact Urine pH Urine WBC (Auto) Urine Creatinine Urine Total Protein Fluid Total Protein Vancomycin Trough Rheumatoid Factor Complement C4 Miscellaneous Test Crossmatch 09/20/16 09/21/16 09/21/16 23:51 03:30 04:44 WBC RBC Hgb Hct MCV MCH MCHC RDW Plt Count Lymph % (Auto) [place] % (Auto) Lymph # [place] # Baso # Seg Neutrophils % Seg Neuts % (Manual) Lymphocytes % (Manual) Monocytes % (Manual) Eosinophils % (Manual) Basophils % (Manual) Nucleated RBC % Seg Neutrophils # Seg Neutrophils # Man Lymphocytes # (Manual) Monocytes # (Manual) Eosinophils # (Manual) Basophils # (Manual) PT INR Fibrinogen dRVVT Confirm Interp Factor V Activity POC ABG pH POC ABG pCO2 POC ABG pO2 ABG pO2 ABG HCO3 ABG Base Excess ABG Hemoglobin Oxyhemoglobin Sodium Potassium Chloride Carbon Dioxide BUN Creatinine Glucose POC Glucose 114 H 141 H Lactic Acid Calcium Ionized Calcium Phosphorus Magnesium 2.70 H Direct Bilirubin AST ALT Alkaline Phosphatase Lactate Dehydrogenase Troponin T C-Reactive Protein Total Protein Albumin Prealbumin Triglycerides Cholesterol LDL Cholesterol Direct HDL Cholesterol 25-OH Vitamin D Total PTH Intact Urine pH Urine WBC (Auto) Urine Creatinine Urine Total Protein Fluid Total Protein Vancomycin Trough Rheumatoid Factor Complement C4 Miscellaneous Test Crossmatch 09/21/16 09/21/16 09/21/16 07:45 07:45 10:01 WBC 13.8 H RBC 2.94 L Hgb 7.5 L Hct 23.5 L MCV MCH 26 L MCHC RDW 21.2 H Plt Count Lymph % (Auto) 6.9 L [place] % (Auto) 9.4 H Lymph # 0.9 L [place] # 1.3 H Baso # Seg Neutrophils % 83.2 H Seg Neuts % (Manual) Lymphocytes % (Manual) Monocytes % (Manual) Eosinophils % (Manual) Basophils % (Manual) Nucleated RBC % Seg Neutrophils # 11.5 H Seg Neutrophils # Man Lymphocytes # (Manual) Monocytes # (Manual) Eosinophils # (Manual) Basophils # (Manual) PT INR Fibrinogen dRVVT Confirm Interp Factor V Activity POC ABG pH 7.308 L POC ABG pCO2 31.9 L POC ABG pO2 148 H ABG pO2 ABG HCO3 ABG Base Excess ABG Hemoglobin Oxyhemoglobin Sodium 147 H Potassium Chloride 114.2 H Carbon Dioxide 15 L BUN 120 H Creatinine 3.9 H Glucose 156 H POC Glucose Lactic Acid Calcium 8.2 L Ionized Calcium Phosphorus Magnesium Direct Bilirubin AST ALT Alkaline Phosphatase Lactate Dehydrogenase Troponin T C-Reactive Protein Total Protein Albumin Prealbumin Triglycerides Cholesterol LDL Cholesterol Direct HDL Cholesterol 25-OH Vitamin D Total PTH Intact Urine pH Urine WBC (Auto) Urine Creatinine Urine Total Protein Fluid Total Protein Vancomycin Trough Rheumatoid Factor Complement C4 Miscellaneous Test Crossmatch 09/21/16 09/21/16 09/21/16 12:00 12:03 13:00 WBC RBC Hgb Hct MCV MCH MCHC RDW Plt Count Lymph % (Auto) [place] % (Auto) Lymph # [place] # Baso # Seg Neutrophils % Seg Neuts % (Manual) Lymphocytes % (Manual) Monocytes % (Manual) Eosinophils % (Manual) Basophils % (Manual) Nucleated RBC % Seg Neutrophils # Seg Neutrophils # Man Lymphocytes # (Manual) Monocytes # (Manual) Eosinophils # (Manual) Basophils # (Manual) PT INR Fibrinogen dRVVT Confirm Interp Factor V Activity POC ABG pH POC ABG pCO2 POC ABG pO2 ABG pO2 ABG HCO3 ABG Base Excess ABG Hemoglobin Oxyhemoglobin Sodium Potassium Chloride Carbon Dioxide BUN Creatinine Glucose POC Glucose 163 H Lactic Acid Calcium Ionized Calcium Phosphorus Magnesium Direct Bilirubin AST ALT Alkaline Phosphatase Lactate Dehydrogenase Troponin T C-Reactive Protein Total Protein Albumin Prealbumin Triglycerides Cholesterol LDL Cholesterol Direct HDL Cholesterol 25-OH Vitamin D Total PTH Intact Urine pH Urine WBC (Auto) Urine Creatinine 54.8 H Urine Total Protein Fluid Total Protein Vancomycin Trough 2.3 L Rheumatoid Factor Complement C4 Miscellaneous Test Crossmatch 09/21/16 09/21/16 09/22/16 16:51 23:17 06:27 WBC RBC Hgb Hct MCV MCH MCHC RDW Plt Count Lymph % (Auto) [place] % (Auto) Lymph # [place] # Baso # Seg Neutrophils % Seg Neuts % (Manual) Lymphocytes % (Manual) Monocytes % (Manual) Eosinophils % (Manual) Basophils % (Manual) Nucleated RBC % Seg Neutrophils # Seg Neutrophils # Man Lymphocytes # (Manual) Monocytes # (Manual) Eosinophils # (Manual) Basophils # (Manual) PT INR Fibrinogen dRVVT Confirm Interp Factor V Activity POC ABG pH POC ABG pCO2 POC ABG pO2 ABG pO2 ABG HCO3 ABG Base Excess ABG Hemoglobin Oxyhemoglobin Sodium Potassium Chloride Carbon Dioxide BUN Creatinine Glucose POC Glucose 206 H 114 H 115 H Lactic Acid Calcium Ionized Calcium Phosphorus Magnesium Direct Bilirubin AST ALT Alkaline Phosphatase Lactate Dehydrogenase Troponin T C-Reactive Protein Total Protein Albumin Prealbumin Triglycerides Cholesterol LDL Cholesterol Direct HDL Cholesterol 25-OH Vitamin D Total PTH Intact Urine pH Urine WBC (Auto) Urine Creatinine Urine Total Protein Fluid Total Protein Vancomycin Trough Rheumatoid Factor Complement C4 Miscellaneous Test Crossmatch 09/22/16 09/22/16 09/22/16 07:50 07:50 12:00 WBC 17.8 H RBC 3.04 L Hgb 8.0 L Hct 24.7 L MCV MCH 26 L MCHC RDW 21.6 H Plt Count Lymph % (Auto) [place] % (Auto) Lymph # [place] # Baso # Seg Neutrophils % Seg Neuts % (Manual) Lymphocytes % (Manual) Monocytes % (Manual) Eosinophils % (Manual) Basophils % (Manual) Nucleated RBC % Seg Neutrophils # Seg Neutrophils # Man Lymphocytes # (Manual) Monocytes # (Manual) Eosinophils # (Manual) Basophils # (Manual) PT INR Fibrinogen dRVVT Confirm Interp Factor V Activity POC ABG pH POC ABG pCO2 POC ABG pO2 ABG pO2 ABG HCO3 ABG Base Excess ABG Hemoglobin Oxyhemoglobin Sodium 150 H Potassium Chloride 118.2 H Carbon Dioxide 14 L BUN 111 H Creatinine 3.7 H Glucose 157 H POC Glucose 183 H Lactic Acid Calcium Ionized Calcium Phosphorus Magnesium Direct Bilirubin AST ALT Alkaline Phosphatase Lactate Dehydrogenase Troponin T C-Reactive Protein Total Protein Albumin Prealbumin Triglycerides Cholesterol LDL Cholesterol Direct HDL Cholesterol 25-OH Vitamin D Total PTH Intact Urine pH Urine WBC (Auto) Urine Creatinine Urine Total Protein Fluid Total Protein Vancomycin Trough Rheumatoid Factor Complement C4 Miscellaneous Test Crossmatch 09/22/16 09/22/16 09/23/16 17:29 23:10 05:00 WBC 19.2 H RBC 3.13 L Hgb 8.0 L Hct 25.2 L MCV MCH 26 L MCHC RDW 22.1 H Plt Count Lymph % (Auto) [place] % (Auto) Lymph # [place] # Baso # Seg Neutrophils % Seg Neuts % (Manual) 92.0 H Lymphocytes % (Manual) 3.0 L Monocytes % (Manual) Eosinophils % (Manual) Basophils % (Manual) Nucleated RBC % Seg Neutrophils # Seg Neutrophils # Man 17.7 H Lymphocytes # (Manual) 0.6 L Monocytes # (Manual) Eosinophils # (Manual) Basophils # (Manual) PT INR Fibrinogen dRVVT Confirm Interp Factor V Activity POC ABG pH POC ABG pCO2 POC ABG pO2 ABG pO2 ABG HCO3 ABG Base Excess ABG Hemoglobin Oxyhemoglobin Sodium Potassium Chloride Carbon Dioxide BUN Creatinine Glucose POC Glucose 197 H 169 H Lactic Acid Calcium Ionized Calcium Phosphorus Magnesium Direct Bilirubin AST ALT Alkaline Phosphatase Lactate Dehydrogenase Troponin T C-Reactive Protein Total Protein Albumin Prealbumin Triglycerides Cholesterol LDL Cholesterol Direct HDL Cholesterol 25-OH Vitamin D Total PTH Intact Urine pH Urine WBC (Auto) Urine Creatinine Urine Total Protein Fluid Total Protein Vancomycin Trough Rheumatoid Factor Complement C4 Miscellaneous Test Crossmatch 09/23/16 09/23/16 09/23/16 05:00 05:00 05:10 WBC RBC Hgb Hct MCV MCH MCHC RDW Plt Count Lymph % (Auto) [place] % (Auto) Lymph # [place] # Baso # Seg Neutrophils % Seg Neuts % (Manual) Lymphocytes % (Manual) Monocytes % (Manual) Eosinophils % (Manual) Basophils % (Manual) Nucleated RBC % Seg Neutrophils # Seg Neutrophils # Man Lymphocytes # (Manual) Monocytes # (Manual) Eosinophils # (Manual) Basophils # (Manual) PT INR Fibrinogen dRVVT Confirm Interp Factor V Activity POC ABG pH POC ABG pCO2 POC ABG pO2 ABG pO2 ABG HCO3 ABG Base Excess ABG Hemoglobin Oxyhemoglobin Sodium 147 H Potassium 3.2 L Chloride 115.7 H Carbon Dioxide 13 L BUN 111 H Creatinine 3.8 H Glucose 194 H POC Glucose 188 H Lactic Acid Calcium 7.3 L D Ionized Calcium Phosphorus Magnesium Direct Bilirubin AST ALT Alkaline Phosphatase Lactate Dehydrogenase Troponin T C-Reactive Protein 3.20 H Total Protein Albumin Prealbumin Triglycerides Cholesterol LDL Cholesterol Direct HDL Cholesterol 25-OH Vitamin D Total PTH Intact Urine pH Urine WBC (Auto) Urine Creatinine Urine Total Protein Fluid Total Protein Vancomycin Trough Rheumatoid Factor Complement C4 Miscellaneous Test Crossmatch 09/23/16 09/23/16 09/23/16 11:37 12:29 18:01 WBC RBC Hgb Hct MCV MCH MCHC RDW Plt Count Lymph % (Auto) [place] % (Auto) Lymph # [place] # Baso # Seg Neutrophils % Seg Neuts % (Manual) Lymphocytes % (Manual) Monocytes % (Manual) Eosinophils % (Manual) Basophils % (Manual) Nucleated RBC % Seg Neutrophils # Seg Neutrophils # Man Lymphocytes # (Manual) Monocytes # (Manual) Eosinophils # (Manual) Basophils # (Manual) PT INR Fibrinogen dRVVT Confirm Interp Factor V Activity POC ABG pH POC ABG pCO2 18.9 L POC ABG pO2 143 H ABG pO2 ABG HCO3 ABG Base Excess ABG Hemoglobin Oxyhemoglobin Sodium Potassium Chloride Carbon Dioxide BUN Creatinine Glucose POC Glucose 153 H 108 H Lactic Acid Calcium Ionized Calcium Phosphorus Magnesium Direct Bilirubin AST ALT Alkaline Phosphatase Lactate Dehydrogenase Troponin T C-Reactive Protein Total Protein Albumin Prealbumin Triglycerides Cholesterol LDL Cholesterol Direct HDL Cholesterol 25-OH Vitamin D Total PTH Intact Urine pH Urine WBC (Auto) Urine Creatinine Urine Total Protein Fluid Total Protein Vancomycin Trough Rheumatoid Factor Complement C4 Miscellaneous Test Crossmatch 09/23/16 09/23/16 09/24/16 21:19 23:43 05:16 WBC RBC Hgb Hct MCV MCH MCHC RDW Plt Count Lymph % (Auto) [place] % (Auto) Lymph # [place] # Baso # Seg Neutrophils % Seg Neuts % (Manual) Lymphocytes % (Manual) Monocytes % (Manual) Eosinophils % (Manual) Basophils % (Manual) Nucleated RBC % Seg Neutrophils # Seg Neutrophils # Man Lymphocytes # (Manual) Monocytes # (Manual) Eosinophils # (Manual) Basophils # (Manual) PT INR Fibrinogen dRVVT Confirm Interp Factor V Activity POC ABG pH POC ABG pCO2 17.3 L POC ABG pO2 112 H ABG pO2 ABG HCO3 ABG Base Excess ABG Hemoglobin Oxyhemoglobin Sodium Potassium Chloride Carbon Dioxide BUN Creatinine Glucose POC Glucose 143 H 164 H Lactic Acid Calcium Ionized Calcium Phosphorus Magnesium Direct Bilirubin AST ALT Alkaline Phosphatase Lactate Dehydrogenase Troponin T C-Reactive Protein Total Protein Albumin Prealbumin Triglycerides Cholesterol LDL Cholesterol Direct HDL Cholesterol 25-OH Vitamin D Total PTH Intact Urine pH Urine WBC (Auto) Urine Creatinine Urine Total Protein Fluid Total Protein Vancomycin Trough Rheumatoid Factor Complement C4 Miscellaneous Test Crossmatch 09/24/16 09/24/16 09/24/16 05:21 11:58 17:06 WBC RBC Hgb Hct MCV MCH MCHC RDW Plt Count Lymph % (Auto) [place] % (Auto) Lymph # [place] # Baso # Seg Neutrophils % Seg Neuts % (Manual) Lymphocytes % (Manual) Monocytes % (Manual) Eosinophils % (Manual) Basophils % (Manual) Nucleated RBC % Seg Neutrophils # Seg Neutrophils # Man Lymphocytes # (Manual) Monocytes # (Manual) Eosinophils # (Manual) Basophils # (Manual) PT INR Fibrinogen dRVVT Confirm Interp Factor V Activity POC ABG pH POC ABG pCO2 POC ABG pO2 ABG pO2 ABG HCO3 ABG Base Excess ABG Hemoglobin Oxyhemoglobin Sodium Potassium Chloride Carbon Dioxide 10 L BUN 103 H Creatinine 4.3 H Glucose 163 H POC Glucose 173 H 167 H Lactic Acid Calcium 6.5 L Ionized Calcium Phosphorus Magnesium Direct Bilirubin AST ALT Alkaline Phosphatase Lactate Dehydrogenase Troponin T C-Reactive Protein Total Protein Albumin Prealbumin Triglycerides Cholesterol LDL Cholesterol Direct HDL Cholesterol 25-OH Vitamin D Total PTH Intact Urine pH Urine WBC (Auto) Urine Creatinine Urine Total Protein Fluid Total Protein Vancomycin Trough Rheumatoid Factor Complement C4 Miscellaneous Test Crossmatch 09/24/16 09/24/16 09/24/16 20:15 21:02 23:48 WBC RBC Hgb Hct MCV MCH MCHC RDW Plt Count Lymph % (Auto) [place] % (Auto) Lymph # [place] # Baso # Seg Neutrophils % Seg Neuts % (Manual) Lymphocytes % (Manual) Monocytes % (Manual) Eosinophils % (Manual) Basophils % (Manual) Nucleated RBC % Seg Neutrophils # Seg Neutrophils # Man Lymphocytes # (Manual) Monocytes # (Manual) Eosinophils # (Manual) Basophils # (Manual) PT INR Fibrinogen dRVVT Confirm Interp Factor V Activity POC ABG pH 7.288 L POC ABG pCO2 30.2 L 21.5 L POC ABG pO2 32 L 39 L ABG pO2 ABG HCO3 ABG Base Excess ABG Hemoglobin Oxyhemoglobin Sodium Potassium Chloride Carbon Dioxide BUN Creatinine Glucose POC Glucose 109 H Lactic Acid Calcium Ionized Calcium Phosphorus Magnesium Direct Bilirubin AST ALT Alkaline Phosphatase Lactate Dehydrogenase Troponin T C-Reactive Protein Total Protein Albumin Prealbumin Triglycerides Cholesterol LDL Cholesterol Direct HDL Cholesterol 25-OH Vitamin D Total PTH Intact Urine pH Urine WBC (Auto) Urine Creatinine Urine Total Protein Fluid Total Protein Vancomycin Trough Rheumatoid Factor Complement C4 Miscellaneous Test Crossmatch 09/25/16 09/25/16 09/25/16 04:20 04:20 04:20 WBC RBC 2.58 L Hgb 7.0 L Hct 21.0 L MCV MCH 27 L MCHC RDW 23.8 H Plt Count Lymph % (Auto) [place] % (Auto) Lymph # [place] # Baso # Seg Neutrophils % Seg Neuts % (Manual) Lymphocytes % (Manual) 12.0 L Monocytes % (Manual) Eosinophils % (Manual) 7.0 H Basophils % (Manual) 2.0 H Nucleated RBC % Seg Neutrophils # Seg Neutrophils # Man Lymphocytes # (Manual) 0.9 L Monocytes # (Manual) Eosinophils # (Manual) 0.5 H Basophils # (Manual) PT INR Fibrinogen dRVVT Confirm Interp Factor V Activity POC ABG pH POC ABG pCO2 POC ABG pO2 ABG pO2 ABG HCO3 ABG Base Excess ABG Hemoglobin Oxyhemoglobin Sodium Potassium Chloride Carbon Dioxide 15 L BUN 72 H Creatinine 3.8 H Glucose POC Glucose Lactic Acid Calcium 6.0 L Ionized Calcium Phosphorus 4.60 H Magnesium 1.60 L Direct Bilirubin AST ALT Alkaline Phosphatase Lactate Dehydrogenase Troponin T C-Reactive Protein Total Protein Albumin Prealbumin Triglycerides Cholesterol LDL Cholesterol Direct HDL Cholesterol 25-OH Vitamin D Total PTH Intact Urine pH Urine WBC (Auto) Urine Creatinine Urine Total Protein Fluid Total Protein Vancomycin Trough Rheumatoid Factor Complement C4 Miscellaneous Test Crossmatch 09/25/16 09/25/16 09/25/16 04:57 08:02 10:30 WBC RBC Hgb Hct MCV MCH MCHC RDW Plt Count Lymph % (Auto) [place] % (Auto) Lymph # [place] # Baso # Seg Neutrophils % Seg Neuts % (Manual) Lymphocytes % (Manual) Monocytes % (Manual) Eosinophils % (Manual) Basophils % (Manual) Nucleated RBC % Seg Neutrophils # Seg Neutrophils # Man Lymphocytes # (Manual) Monocytes # (Manual) Eosinophils # (Manual) Basophils # (Manual) PT INR Fibrinogen dRVVT Confirm Interp Factor V Activity POC ABG pH POC ABG pCO2 24.7 L POC ABG pO2 152 H ABG pO2 ABG HCO3 ABG Base Excess ABG Hemoglobin Oxyhemoglobin Sodium Potassium Chloride Carbon Dioxide BUN Creatinine Glucose POC Glucose 113 H Lactic Acid Calcium Ionized Calcium Phosphorus Magnesium Direct Bilirubin AST ALT Alkaline Phosphatase Lactate Dehydrogenase Troponin T C-Reactive Protein Total Protein Albumin Prealbumin Triglycerides Cholesterol LDL Cholesterol Direct HDL Cholesterol 25-OH Vitamin D Total PTH Intact Urine pH Urine WBC (Auto) Urine Creatinine Urine Total Protein Fluid Total Protein Vancomycin Trough Rheumatoid Factor Complement C4 Miscellaneous Test Crossmatch See Detail 09/25/16 09/25/16 09/25/16 12:05 17:44 23:47 WBC RBC Hgb Hct MCV MCH MCHC RDW Plt Count Lymph % (Auto) [place] % (Auto) Lymph # [place] # Baso # Seg Neutrophils % Seg Neuts % (Manual) Lymphocytes % (Manual) Monocytes % (Manual) Eosinophils % (Manual) Basophils % (Manual) Nucleated RBC % Seg Neutrophils # Seg Neutrophils # Man Lymphocytes # (Manual) Monocytes # (Manual) Eosinophils # (Manual) Basophils # (Manual) PT INR Fibrinogen dRVVT Confirm Interp Factor V Activity POC ABG pH POC ABG pCO2 POC ABG pO2 ABG pO2 ABG HCO3 ABG Base Excess ABG Hemoglobin Oxyhemoglobin Sodium Potassium Chloride Carbon Dioxide BUN Creatinine Glucose POC Glucose 117 H 119 H 150 H Lactic Acid Calcium Ionized Calcium Phosphorus Magnesium Direct Bilirubin AST ALT Alkaline Phosphatase Lactate Dehydrogenase Troponin T C-Reactive Protein Total Protein Albumin Prealbumin Triglycerides Cholesterol LDL Cholesterol Direct HDL Cholesterol 25-OH Vitamin D Total PTH Intact Urine pH Urine WBC (Auto) Urine Creatinine Urine Total Protein Fluid Total Protein Vancomycin Trough Rheumatoid Factor Complement C4 Miscellaneous Test Crossmatch 09/26/16 09/26/16 09/26/16 04:25 04:25 04:25 WBC RBC 2.65 L Hgb 7.4 L Hct 21.6 L MCV MCH MCHC RDW 22.5 H Plt Count Lymph % (Auto) [place] % (Auto) Lymph # [place] # Baso # Seg Neutrophils % Seg Neuts % (Manual) Lymphocytes % (Manual) 6.0 L Monocytes % (Manual) Eosinophils % (Manual) 11.0 H Basophils % (Manual) Nucleated RBC % Seg Neutrophils # Seg Neutrophils # Man Lymphocytes # (Manual) 0.4 L Monocytes # (Manual) Eosinophils # (Manual) 0.6 H Basophils # (Manual) PT INR Fibrinogen dRVVT Confirm Interp Factor V Activity POC ABG pH POC ABG pCO2 POC ABG pO2 ABG pO2 ABG HCO3 ABG Base Excess ABG Hemoglobin Oxyhemoglobin Sodium Potassium Chloride 97.0 L Carbon Dioxide 19 L BUN 43 H Creatinine 2.6 H Glucose 130 H POC Glucose Lactic Acid 4.40 H* Calcium 6.7 L Ionized Calcium Phosphorus Magnesium Direct Bilirubin AST ALT Alkaline Phosphatase Lactate Dehydrogenase Troponin T C-Reactive Protein Total Protein Albumin Prealbumin Triglycerides Cholesterol LDL Cholesterol Direct HDL Cholesterol 25-OH Vitamin D Total PTH Intact Urine pH Urine WBC (Auto) Urine Creatinine Urine Total Protein Fluid Total Protein Vancomycin Trough Rheumatoid Factor Complement C4 Miscellaneous Test Crossmatch 09/26/16 09/26/16 09/26/16 05:20 11:44 12:12 WBC RBC Hgb Hct MCV MCH MCHC RDW Plt Count Lymph % (Auto) [place] % (Auto) Lymph # [place] # Baso # Seg Neutrophils % Seg Neuts % (Manual) Lymphocytes % (Manual) Monocytes % (Manual) Eosinophils % (Manual) Basophils % (Manual) Nucleated RBC % Seg Neutrophils # Seg Neutrophils # Man Lymphocytes # (Manual) Monocytes # (Manual) Eosinophils # (Manual) Basophils # (Manual) PT INR Fibrinogen dRVVT Confirm Interp Factor V Activity POC ABG pH POC ABG pCO2 27.0 L POC ABG pO2 69 L ABG pO2 ABG HCO3 ABG Base Excess ABG Hemoglobin Oxyhemoglobin Sodium Potassium Chloride Carbon Dioxide BUN Creatinine Glucose POC Glucose 121 H 128 H Lactic Acid Calcium Ionized Calcium Phosphorus Magnesium Direct Bilirubin AST ALT Alkaline Phosphatase Lactate Dehydrogenase Troponin T C-Reactive Protein Total Protein Albumin Prealbumin Triglycerides Cholesterol LDL Cholesterol Direct HDL Cholesterol 25-OH Vitamin D Total PTH Intact Urine pH Urine WBC (Auto) Urine Creatinine Urine Total Protein Fluid Total Protein Vancomycin Trough Rheumatoid Factor Complement C4 Miscellaneous Test Crossmatch 09/26/16 09/26/16 09/27/16 18:31 23:40 08:20 WBC RBC Hgb Hct MCV MCH MCHC RDW Plt Count Lymph % (Auto) [place] % (Auto) Lymph # [place] # Baso # Seg Neutrophils % Seg Neuts % (Manual) Lymphocytes % (Manual) Monocytes % (Manual) Eosinophils % (Manual) Basophils % (Manual) Nucleated RBC % Seg Neutrophils # Seg Neutrophils # Man Lymphocytes # (Manual) Monocytes # (Manual) Eosinophils # (Manual) Basophils # (Manual) PT INR Fibrinogen dRVVT Confirm Interp Factor V Activity POC ABG pH POC ABG pCO2 POC ABG pO2 ABG pO2 ABG HCO3 ABG Base Excess ABG Hemoglobin Oxyhemoglobin Sodium Potassium Chloride Carbon Dioxide BUN Creatinine Glucose POC Glucose 120 H 133 H Lactic Acid 4.10 H* Calcium Ionized Calcium Phosphorus Magnesium Direct Bilirubin AST ALT Alkaline Phosphatase Lactate Dehydrogenase Troponin T C-Reactive Protein Total Protein Albumin Prealbumin Triglycerides Cholesterol LDL Cholesterol Direct HDL Cholesterol 25-OH Vitamin D Total PTH Intact Urine pH Urine WBC (Auto) Urine Creatinine Urine Total Protein Fluid Total Protein Vancomycin Trough Rheumatoid Factor Complement C4 Miscellaneous Test Crossmatch 09/27/16 09/27/16 09/27/16 11:23 15:00 18:15 WBC RBC Hgb Hct MCV MCH MCHC RDW Plt Count Lymph % (Auto) [place] % (Auto) Lymph # [place] # Baso # Seg Neutrophils % Seg Neuts % (Manual) Lymphocytes % (Manual) Monocytes % (Manual) Eosinophils % (Manual) Basophils % (Manual) Nucleated RBC % Seg Neutrophils # Seg Neutrophils # Man Lymphocytes # (Manual) Monocytes # (Manual) Eosinophils # (Manual) Basophils # (Manual) PT INR Fibrinogen dRVVT Confirm Interp Factor V Activity POC ABG pH 7.459 H POC ABG pCO2 27.1 L POC ABG pO2 140 H ABG pO2 ABG HCO3 ABG Base Excess ABG Hemoglobin Oxyhemoglobin Sodium Potassium Chloride Carbon Dioxide BUN Creatinine Glucose POC Glucose 114 H 127 H Lactic Acid Calcium Ionized Calcium Phosphorus Magnesium Direct Bilirubin AST ALT Alkaline Phosphatase Lactate Dehydrogenase Troponin T C-Reactive Protein Total Protein Albumin Prealbumin Triglycerides Cholesterol LDL Cholesterol Direct HDL Cholesterol 25-OH Vitamin D Total PTH Intact Urine pH Urine WBC (Auto) Urine Creatinine Urine Total Protein Fluid Total Protein Vancomycin Trough Rheumatoid Factor Complement C4 Miscellaneous Test Crossmatch 09/27/16 09/27/16 09/28/16 Unknown Unknown 03:45 WBC RBC 2.49 L Hgb 6.8 L Hct 20.7 L MCV MCH 27 L MCHC RDW 22.1 H Plt Count Lymph % (Auto) [place] % (Auto) Lymph # [place] # Baso # Seg Neutrophils % Seg Neuts % (Manual) 32.0 L Lymphocytes % (Manual) 12.0 L Monocytes % (Manual) 11.0 H Eosinophils % (Manual) 10.0 H Basophils % (Manual) Nucleated RBC % Seg Neutrophils # Seg Neutrophils # Man Lymphocytes # (Manual) 1.0 L Monocytes # (Manual) 0.9 H Eosinophils # (Manual) 0.8 H Basophils # (Manual) PT INR Fibrinogen dRVVT Confirm Interp Factor V Activity POC ABG pH POC ABG pCO2 POC ABG pO2 ABG pO2 ABG HCO3 ABG Base Excess ABG Hemoglobin Oxyhemoglobin Sodium 135 L 135 L Potassium 3.5 L Chloride 93.6 L 94.4 L Carbon Dioxide 17 L 21 L BUN 45 H 28 H Creatinine 3.3 H 2.5 H Glucose 106 H POC Glucose Lactic Acid Calcium 7.3 L 7.1 L Ionized Calcium Phosphorus Magnesium Direct Bilirubin AST ALT Alkaline Phosphatase Lactate Dehydrogenase Troponin T C-Reactive Protein Total Protein Albumin Prealbumin Triglycerides Cholesterol LDL Cholesterol Direct HDL Cholesterol 25-OH Vitamin D Total PTH Intact Urine pH Urine WBC (Auto) Urine Creatinine Urine Total Protein Fluid Total Protein Vancomycin Trough Rheumatoid Factor Complement C4 Miscellaneous Test Crossmatch 09/28/16 09/28/16 09/28/16 03:45 07:25 11:58 WBC 13.3 H RBC 3.01 L Hgb 8.4 L Hct 25.0 L MCV MCH MCHC RDW 20.5 H Plt Count 128 L Lymph % (Auto) [place] % (Auto) Lymph # [place] # Baso # Seg Neutrophils % Seg Neuts % (Manual) Lymphocytes % (Manual) 7.0 L Monocytes % (Manual) Eosinophils % (Manual) 6.0 H Basophils % (Manual) Nucleated RBC % Seg Neutrophils # Seg Neutrophils # Man Lymphocytes # (Manual) 0.9 L Monocytes # (Manual) Eosinophils # (Manual) 0.8 H Basophils # (Manual) PT INR Fibrinogen dRVVT Confirm Interp Factor V Activity POC ABG pH POC ABG pCO2 POC ABG pO2 ABG pO2 ABG HCO3 ABG Base Excess ABG Hemoglobin Oxyhemoglobin Sodium Potassium Chloride Carbon Dioxide BUN Creatinine Glucose POC Glucose 121 H Lactic Acid 4.50 H* Calcium Ionized Calcium Phosphorus Magnesium Direct Bilirubin AST ALT Alkaline Phosphatase Lactate Dehydrogenase Troponin T C-Reactive Protein Total Protein Albumin Prealbumin Triglycerides Cholesterol LDL Cholesterol Direct HDL Cholesterol 25-OH Vitamin D Total PTH Intact Urine pH Urine WBC (Auto) Urine Creatinine Urine Total Protein Fluid Total Protein Vancomycin Trough Rheumatoid Factor Complement C4 Miscellaneous Test Crossmatch 09/29/16 09/29/16 09/29/16 06:45 06:45 06:45 WBC 14.9 H RBC 2.74 L Hgb 7.6 L Hct 23.2 L MCV MCH MCHC RDW 20.5 H Plt Count 81 L Lymph % (Auto) [place] % (Auto) Lymph # [place] # Baso # Seg Neutrophils % Seg Neuts % (Manual) 81.0 H Lymphocytes % (Manual) 4.0 L Monocytes % (Manual) Eosinophils % (Manual) Basophils % (Manual) Nucleated RBC % Seg Neutrophils # Seg Neutrophils # Man 12.1 H Lymphocytes # (Manual) 0.6 L Monocytes # (Manual) Eosinophils # (Manual) Basophils # (Manual) PT INR Fibrinogen dRVVT Confirm Interp Factor V Activity POC ABG pH POC ABG pCO2 POC ABG pO2 ABG pO2 ABG HCO3 ABG Base Excess ABG Hemoglobin Oxyhemoglobin Sodium 133 L Potassium 3.4 L Chloride 92.5 L Carbon Dioxide 21 L BUN 33 H Creatinine 3.0 H Glucose POC Glucose Lactic Acid Calcium 6.6 L Ionized Calcium Phosphorus Magnesium 1.40 L Direct Bilirubin 0.9 H AST ALT Alkaline Phosphatase Lactate Dehydrogenase Troponin T C-Reactive Protein Total Protein 4.3 L Albumin 1.3 L Prealbumin Triglycerides Cholesterol LDL Cholesterol Direct HDL Cholesterol 25-OH Vitamin D Total PTH Intact Urine pH Urine WBC (Auto) Urine Creatinine Urine Total Protein Fluid Total Protein Vancomycin Trough Rheumatoid Factor Complement C4 Miscellaneous Test Crossmatch 09/29/16 09/29/16 09/30/16 17:52 20:12 00:07 WBC RBC Hgb Hct MCV MCH MCHC RDW Plt Count Lymph % (Auto) [place] % (Auto) Lymph # [place] # Baso # Seg Neutrophils % Seg Neuts % (Manual) Lymphocytes % (Manual) Monocytes % (Manual) Eosinophils % (Manual) Basophils % (Manual) Nucleated RBC % Seg Neutrophils # Seg Neutrophils # Man Lymphocytes # (Manual) Monocytes # (Manual) Eosinophils # (Manual) Basophils # (Manual) PT INR Fibrinogen dRVVT Confirm Interp Factor V Activity POC ABG pH POC ABG pCO2 POC ABG pO2 ABG pO2 ABG HCO3 ABG Base Excess ABG Hemoglobin Oxyhemoglobin Sodium Potassium Chloride Carbon Dioxide BUN Creatinine Glucose POC Glucose 50 L 51 L Lactic Acid Calcium Ionized Calcium Phosphorus Magnesium Direct Bilirubin AST ALT Alkaline Phosphatase Lactate Dehydrogenase Troponin T 0.204 H* C-Reactive Protein Total Protein Albumin Prealbumin Triglycerides Cholesterol 31 L LDL Cholesterol Direct 4 L HDL Cholesterol 3 L 25-OH Vitamin D Total PTH Intact Urine pH Urine WBC (Auto) Urine Creatinine Urine Total Protein Fluid Total Protein Vancomycin Trough Rheumatoid Factor Complement C4 Miscellaneous Test Crossmatch 09/30/16 09/30/16 09/30/16 01:30 05:15 06:10 WBC RBC Hgb Hct MCV MCH MCHC RDW Plt Count Lymph % (Auto) [place] % (Auto) Lymph # [place] # Baso # Seg Neutrophils % Seg Neuts % (Manual) Lymphocytes % (Manual) Monocytes % (Manual) Eosinophils % (Manual) Basophils % (Manual) Nucleated RBC % Seg Neutrophils # Seg Neutrophils # Man Lymphocytes # (Manual) Monocytes # (Manual) Eosinophils # (Manual) Basophils # (Manual) PT INR Fibrinogen dRVVT Confirm Interp Factor V Activity POC ABG pH POC ABG pCO2 POC ABG pO2 ABG pO2 ABG HCO3 ABG Base Excess ABG Hemoglobin Oxyhemoglobin Sodium 133 L Potassium 3.2 L Chloride 93.2 L Carbon Dioxide 19 L BUN 36 H Creatinine 3.2 H Glucose 104 H POC Glucose 167 H 146 H Lactic Acid Calcium 6.4 L Ionized Calcium Phosphorus Magnesium 1.60 L Direct Bilirubin AST ALT Alkaline Phosphatase Lactate Dehydrogenase Troponin T C-Reactive Protein Total Protein Albumin Prealbumin Triglycerides Cholesterol LDL Cholesterol Direct HDL Cholesterol 25-OH Vitamin D Total PTH Intact Urine pH Urine WBC (Auto) Urine Creatinine Urine Total Protein Fluid Total Protein Vancomycin Trough Rheumatoid Factor Complement C4 Miscellaneous Test Crossmatch 09/30/16 09/30/16 09/30/16 11:26 13:39 18:38 WBC RBC Hgb Hct MCV MCH MCHC RDW Plt Count Lymph % (Auto) [place] % (Auto) Lymph # [place] # Baso # Seg Neutrophils % Seg Neuts % (Manual) Lymphocytes % (Manual) Monocytes % (Manual) Eosinophils % (Manual) Basophils % (Manual) Nucleated RBC % Seg Neutrophils # Seg Neutrophils # Man Lymphocytes # (Manual) Monocytes # (Manual) Eosinophils # (Manual) Basophils # (Manual) PT INR Fibrinogen dRVVT Confirm Interp Factor V Activity POC ABG pH 7.479 H POC ABG pCO2 29.8 L POC ABG pO2 117 H ABG pO2 ABG HCO3 ABG Base Excess ABG Hemoglobin Oxyhemoglobin Sodium Potassium Chloride Carbon Dioxide BUN Creatinine Glucose POC Glucose 140 H 122 H Lactic Acid Calcium Ionized Calcium Phosphorus Magnesium Direct Bilirubin AST ALT Alkaline Phosphatase Lactate Dehydrogenase Troponin T C-Reactive Protein Total Protein Albumin Prealbumin Triglycerides Cholesterol LDL Cholesterol Direct HDL Cholesterol 25-OH Vitamin D Total PTH Intact Urine pH Urine WBC (Auto) Urine Creatinine Urine Total Protein Fluid Total Protein Vancomycin Trough Rheumatoid Factor Complement C4 Miscellaneous Test Crossmatch 10/01/16 10/01/16 10/01/16 06:00 06:00 12:37 WBC 12.6 H RBC 2.75 L Hgb 7.3 L Hct 23.3 L MCV MCH 27 L MCHC RDW 20.6 H Plt Count 72 L Lymph % (Auto) [place] % (Auto) Lymph # [place] # Baso # Seg Neutrophils % Seg Neuts % (Manual) 31.0 L Lymphocytes % (Manual) 8.0 L Monocytes % (Manual) Eosinophils % (Manual) Basophils % (Manual) Nucleated RBC % 3.0 H Seg Neutrophils # Seg Neutrophils # Man Lymphocytes # (Manual) 1.0 L Monocytes # (Manual) Eosinophils # (Manual) Basophils # (Manual) PT INR Fibrinogen dRVVT Confirm Interp Factor V Activity POC ABG pH POC ABG pCO2 POC ABG pO2 ABG pO2 ABG HCO3 ABG Base Excess ABG Hemoglobin Oxyhemoglobin Sodium 127 L Potassium Chloride 86.8 L Carbon Dioxide 20 L BUN 42 H Creatinine 3.5 H Glucose POC Glucose 65 L Lactic Acid Calcium 7.0 L Ionized Calcium Phosphorus Magnesium Direct Bilirubin AST ALT Alkaline Phosphatase Lactate Dehydrogenase Troponin T C-Reactive Protein Total Protein Albumin Prealbumin Triglycerides Cholesterol LDL Cholesterol Direct HDL Cholesterol 25-OH Vitamin D Total PTH Intact Urine pH Urine WBC (Auto) Urine Creatinine Urine Total Protein Fluid Total Protein Vancomycin Trough Rheumatoid Factor Complement C4 Miscellaneous Test Crossmatch 10/01/16 10/01/16 10/02/16 17:39 23:32 00:59 WBC RBC Hgb Hct MCV MCH MCHC RDW Plt Count Lymph % (Auto) [place] % (Auto) Lymph # [place] # Baso # Seg Neutrophils % Seg Neuts % (Manual) Lymphocytes % (Manual) Monocytes % (Manual) Eosinophils % (Manual) Basophils % (Manual) Nucleated RBC % Seg Neutrophils # Seg Neutrophils # Man Lymphocytes # (Manual) Monocytes # (Manual) Eosinophils # (Manual) Basophils # (Manual) PT INR Fibrinogen dRVVT Confirm Interp Factor V Activity POC ABG pH POC ABG pCO2 POC ABG pO2 ABG pO2 ABG HCO3 ABG Base Excess ABG Hemoglobin Oxyhemoglobin Sodium Potassium Chloride Carbon Dioxide BUN Creatinine Glucose POC Glucose 107 H 52 L 145 H Lactic Acid Calcium Ionized Calcium Phosphorus Magnesium Direct Bilirubin AST ALT Alkaline Phosphatase Lactate Dehydrogenase Troponin T C-Reactive Protein Total Protein Albumin Prealbumin Triglycerides Cholesterol LDL Cholesterol Direct HDL Cholesterol 25-OH Vitamin D Total PTH Intact Urine pH Urine WBC (Auto) Urine Creatinine Urine Total Protein Fluid Total Protein Vancomycin Trough Rheumatoid Factor Complement C4 Miscellaneous Test Crossmatch 10/02/16 10/02/16 10/02/16 10:30 10:50 10:50 WBC 14.7 H RBC 2.76 L Hgb 7.4 L Hct 23.6 L MCV MCH 27 L MCHC RDW 20.2 H Plt Count 79 L Lymph % (Auto) [place] % (Auto) Lymph # [place] # Baso # Seg Neutrophils % Seg Neuts % (Manual) 86.0 H Lymphocytes % (Manual) 6.0 L Monocytes % (Manual) Eosinophils % (Manual) Basophils % (Manual) Nucleated RBC % Seg Neutrophils # Seg Neutrophils # Man 12.6 H Lymphocytes # (Manual) 0.9 L Monocytes # (Manual) Eosinophils # (Manual) Basophils # (Manual) PT INR Fibrinogen dRVVT Confirm Interp Factor V Activity POC ABG pH 7.486 H POC ABG pCO2 30.1 L POC ABG pO2 108 H ABG pO2 ABG HCO3 ABG Base Excess ABG Hemoglobin Oxyhemoglobin Sodium 131 L Potassium 3.4 L Chloride 89.9 L Carbon Dioxide BUN 26 H Creatinine 2.6 H Glucose POC Glucose Lactic Acid Calcium 7.0 L Ionized Calcium Phosphorus Magnesium Direct Bilirubin AST ALT Alkaline Phosphatase Lactate Dehydrogenase Troponin T C-Reactive Protein Total Protein Albumin Prealbumin Triglycerides Cholesterol LDL Cholesterol Direct HDL Cholesterol 25-OH Vitamin D Total PTH Intact Urine pH Urine WBC (Auto) Urine Creatinine Urine Total Protein Fluid Total Protein Vancomycin Trough Rheumatoid Factor Complement C4 Miscellaneous Test Crossmatch 10/02/16 10/03/16 10/03/16 23:45 00:45 05:10 WBC 12.9 H RBC 2.77 L Hgb 7.6 L Hct 23.7 L MCV MCH 27 L MCHC RDW 19.7 H Plt Count 89 L Lymph % (Auto) [place] % (Auto) Lymph # [place] # Baso # Seg Neutrophils % Seg Neuts % (Manual) Lymphocytes % (Manual) 8.0 L Monocytes % (Manual) Eosinophils % (Manual) Basophils % (Manual) Nucleated RBC % Seg Neutrophils # 11.9 H Seg Neutrophils # Man Lymphocytes # (Manual) 1.0 L Monocytes # (Manual) Eosinophils # (Manual) Basophils # (Manual) PT INR Fibrinogen dRVVT Confirm Interp Factor V Activity POC ABG pH POC ABG pCO2 POC ABG pO2 ABG pO2 ABG HCO3 ABG Base Excess ABG Hemoglobin Oxyhemoglobin Sodium Potassium Chloride Carbon Dioxide BUN Creatinine Glucose POC Glucose 55 L 199 H Lactic Acid Calcium Ionized Calcium Phosphorus Magnesium Direct Bilirubin AST ALT Alkaline Phosphatase Lactate Dehydrogenase Troponin T C-Reactive Protein Total Protein Albumin Prealbumin Triglycerides Cholesterol LDL Cholesterol Direct HDL Cholesterol 25-OH Vitamin D Total PTH Intact Urine pH Urine WBC (Auto) Urine Creatinine Urine Total Protein Fluid Total Protein Vancomycin Trough Rheumatoid Factor Complement C4 Miscellaneous Test Crossmatch 10/03/16 10/03/16 10/03/16 05:10 12:14 13:18 WBC RBC Hgb Hct MCV MCH MCHC RDW Plt Count Lymph % (Auto) [place] % (Auto) Lymph # [place] # Baso # Seg Neutrophils % Seg Neuts % (Manual) Lymphocytes % (Manual) Monocytes % (Manual) Eosinophils % (Manual) Basophils % (Manual) Nucleated RBC % Seg Neutrophils # Seg Neutrophils # Man Lymphocytes # (Manual) Monocytes # (Manual) Eosinophils # (Manual) Basophils # (Manual) PT INR Fibrinogen dRVVT Confirm Interp Factor V Activity POC ABG pH POC ABG pCO2 POC ABG pO2 ABG pO2 ABG HCO3 ABG Base Excess ABG Hemoglobin Oxyhemoglobin Sodium 129 L Potassium 3.3 L Chloride 88.8 L Carbon Dioxide 20 L BUN 29 H Creatinine 2.8 H Glucose POC Glucose 68 L 127 H Lactic Acid Calcium 7.2 L Ionized Calcium Phosphorus Magnesium Direct Bilirubin AST ALT Alkaline Phosphatase Lactate Dehydrogenase Troponin T C-Reactive Protein Total Protein Albumin Prealbumin Triglycerides Cholesterol LDL Cholesterol Direct HDL Cholesterol 25-OH Vitamin D Total PTH Intact Urine pH Urine WBC (Auto) Urine Creatinine Urine Total Protein Fluid Total Protein Vancomycin Trough Rheumatoid Factor Complement C4 Miscellaneous Test Crossmatch 10/03/16 10/03/16 10/03/16 14:42 18:21 19:09 WBC RBC Hgb Hct MCV MCH MCHC RDW Plt Count Lymph % (Auto) [place] % (Auto) Lymph # [place] # Baso # Seg Neutrophils % Seg Neuts % (Manual) Lymphocytes % (Manual) Monocytes % (Manual) Eosinophils % (Manual) Basophils % (Manual) Nucleated RBC % Seg Neutrophils # Seg Neutrophils # Man Lymphocytes # (Manual) Monocytes # (Manual) Eosinophils # (Manual) Basophils # (Manual) PT INR Fibrinogen dRVVT Confirm Interp Factor V Activity POC ABG pH 7.499 H POC ABG pCO2 28.4 L POC ABG pO2 44 L ABG pO2 ABG HCO3 ABG Base Excess ABG Hemoglobin Oxyhemoglobin Sodium Potassium Chloride Carbon Dioxide BUN Creatinine Glucose POC Glucose 64 L 205 H Lactic Acid Calcium Ionized Calcium Phosphorus Magnesium Direct Bilirubin AST ALT Alkaline Phosphatase Lactate Dehydrogenase Troponin T C-Reactive Protein Total Protein Albumin Prealbumin Triglycerides Cholesterol LDL Cholesterol Direct HDL Cholesterol 25-OH Vitamin D Total PTH Intact Urine pH Urine WBC (Auto) Urine Creatinine Urine Total Protein Fluid Total Protein Vancomycin Trough Rheumatoid Factor Complement C4 Miscellaneous Test Crossmatch 10/03/16 10/04/16 10/04/16 23:33 04:18 06:30 WBC RBC 2.54 L Hgb 7.1 L Hct 21.7 L MCV MCH MCHC RDW 19.5 H Plt Count 76 L Lymph % (Auto) [place] % (Auto) Lymph # [place] # Baso # Seg Neutrophils % Seg Neuts % (Manual) 88.0 H Lymphocytes % (Manual) 6.0 L Monocytes % (Manual) Eosinophils % (Manual) Basophils % (Manual) Nucleated RBC % Seg Neutrophils # Seg Neutrophils # Man 8.8 H Lymphocytes # (Manual) 0.6 L Monocytes # (Manual) Eosinophils # (Manual) Basophils # (Manual) PT INR Fibrinogen dRVVT Confirm Interp Factor V Activity POC ABG pH 7.461 H POC ABG pCO2 33.6 L POC ABG pO2 211 H ABG pO2 ABG HCO3 ABG Base Excess ABG Hemoglobin Oxyhemoglobin Sodium Potassium Chloride Carbon Dioxide BUN Creatinine Glucose POC Glucose 136 H Lactic Acid Calcium Ionized Calcium Phosphorus Magnesium Direct Bilirubin AST ALT Alkaline Phosphatase Lactate Dehydrogenase Troponin T C-Reactive Protein Total Protein Albumin Prealbumin Triglycerides Cholesterol LDL Cholesterol Direct HDL Cholesterol 25-OH Vitamin D Total PTH Intact Urine pH Urine WBC (Auto) Urine Creatinine Urine Total Protein Fluid Total Protein Vancomycin Trough Rheumatoid Factor Complement C4 Miscellaneous Test Crossmatch 10/04/16 10/04/16 10/04/16 06:30 11:45 17:54 WBC RBC Hgb Hct MCV MCH MCHC RDW Plt Count Lymph % (Auto) [place] % (Auto) Lymph # [place] # Baso # Seg Neutrophils % Seg Neuts % (Manual) Lymphocytes % (Manual) Monocytes % (Manual) Eosinophils % (Manual) Basophils % (Manual) Nucleated RBC % Seg Neutrophils # Seg Neutrophils # Man Lymphocytes # (Manual) Monocytes # (Manual) Eosinophils # (Manual) Basophils # (Manual) PT INR Fibrinogen dRVVT Confirm Interp Factor V Activity POC ABG pH POC ABG pCO2 POC ABG pO2 ABG pO2 ABG HCO3 ABG Base Excess ABG Hemoglobin Oxyhemoglobin Sodium 128 L Potassium Chloride 87.4 L Carbon Dioxide 20 L BUN 34 H Creatinine 2.9 H Glucose 127 H POC Glucose 158 H 160 H Lactic Acid Calcium 7.4 L Ionized Calcium Phosphorus Magnesium Direct Bilirubin AST ALT Alkaline Phosphatase Lactate Dehydrogenase Troponin T C-Reactive Protein Total Protein Albumin Prealbumin Triglycerides Cholesterol LDL Cholesterol Direct HDL Cholesterol 25-OH Vitamin D Total PTH Intact Urine pH Urine WBC (Auto) Urine Creatinine Urine Total Protein Fluid Total Protein Vancomycin Trough Rheumatoid Factor Complement C4 Miscellaneous Test Crossmatch 10/04/16 10/05/16 10/05/16 23:25 04:30 05:00 WBC RBC 2.64 L Hgb 7.5 L Hct 22.6 L MCV MCH MCHC RDW 19.3 H Plt Count 80 L Lymph % (Auto) [place] % (Auto) Lymph # [place] # Baso # Seg Neutrophils % Seg Neuts % (Manual) Lymphocytes % (Manual) 12.0 L Monocytes % (Manual) Eosinophils % (Manual) Basophils % (Manual) Nucleated RBC % Seg Neutrophils # Seg Neutrophils # Man Lymphocytes # (Manual) Monocytes # (Manual) Eosinophils # (Manual) Basophils # (Manual) PT INR Fibrinogen dRVVT Confirm Interp Factor V Activity POC ABG pH 7.475 H POC ABG pCO2 33.3 L POC ABG pO2 140 H ABG pO2 ABG HCO3 ABG Base Excess ABG Hemoglobin Oxyhemoglobin Sodium Potassium Chloride Carbon Dioxide BUN Creatinine Glucose POC Glucose 141 H Lactic Acid Calcium Ionized Calcium Phosphorus Magnesium Direct Bilirubin AST ALT Alkaline Phosphatase Lactate Dehydrogenase Troponin T C-Reactive Protein Total Protein Albumin Prealbumin Triglycerides Cholesterol LDL Cholesterol Direct HDL Cholesterol 25-OH Vitamin D Total PTH Intact Urine pH Urine WBC (Auto) Urine Creatinine Urine Total Protein Fluid Total Protein Vancomycin Trough Rheumatoid Factor Complement C4 Miscellaneous Test Crossmatch 10/05/16 10/05/16 10/05/16 05:00 05:09 12:58 WBC RBC Hgb Hct MCV MCH MCHC RDW Plt Count Lymph % (Auto) [place] % (Auto) Lymph # [place] # Baso # Seg Neutrophils % Seg Neuts % (Manual) Lymphocytes % (Manual) Monocytes % (Manual) Eosinophils % (Manual) Basophils % (Manual) Nucleated RBC % Seg Neutrophils # Seg Neutrophils # Man Lymphocytes # (Manual) Monocytes # (Manual) Eosinophils # (Manual) Basophils # (Manual) PT INR Fibrinogen dRVVT Confirm Interp Factor V Activity POC ABG pH POC ABG pCO2 POC ABG pO2 ABG pO2 ABG HCO3 ABG Base Excess ABG Hemoglobin Oxyhemoglobin Sodium 131 L Potassium Chloride 94.0 L Carbon Dioxide 20 L BUN 22 H Creatinine 2.0 H Glucose 123 H POC Glucose 166 H 179 H Lactic Acid Calcium 7.7 L Ionized Calcium Phosphorus 2.20 L D Magnesium Direct Bilirubin AST ALT Alkaline Phosphatase Lactate Dehydrogenase Troponin T C-Reactive Protein Total Protein Albumin Prealbumin Triglycerides Cholesterol LDL Cholesterol Direct HDL Cholesterol 25-OH Vitamin D Total PTH Intact Urine pH Urine WBC (Auto) Urine Creatinine Urine Total Protein Fluid Total Protein Vancomycin Trough Rheumatoid Factor Complement C4 Miscellaneous Test Crossmatch 10/05/16 10/05/16 10/05/16 15:50 18:53 23:12 WBC RBC Hgb Hct MCV MCH MCHC RDW Plt Count Lymph % (Auto) [place] % (Auto) Lymph # [place] # Baso # Seg Neutrophils % Seg Neuts % (Manual) Lymphocytes % (Manual) Monocytes % (Manual) Eosinophils % (Manual) Basophils % (Manual) Nucleated RBC % Seg Neutrophils # Seg Neutrophils # Man Lymphocytes # (Manual) Monocytes # (Manual) Eosinophils # (Manual) Basophils # (Manual) PT INR Fibrinogen dRVVT Confirm Interp Factor V Activity POC ABG pH POC ABG pCO2 POC ABG pO2 ABG pO2 ABG HCO3 ABG Base Excess ABG Hemoglobin Oxyhemoglobin Sodium Potassium Chloride Carbon Dioxide BUN Creatinine Glucose POC Glucose 150 H 164 H Lactic Acid Calcium Ionized Calcium Phosphorus Magnesium Direct Bilirubin AST ALT Alkaline Phosphatase Lactate Dehydrogenase Troponin T C-Reactive Protein Total Protein Albumin Prealbumin Triglycerides Cholesterol LDL Cholesterol Direct HDL Cholesterol 25-OH Vitamin D Total PTH Intact Urine pH Urine WBC (Auto) Urine Creatinine Urine Total Protein Fluid Total Protein Vancomycin Trough Rheumatoid Factor Complement C4 Miscellaneous Test Crossmatch See Detail 10/06/16 10/06/16 10/06/16 03:50 03:50 04:53 WBC RBC 3.00 L Hgb 8.6 L Hct 25.8 L MCV MCH MCHC RDW 17.9 H Plt Count 65 L Lymph % (Auto) [place] % (Auto) Lymph # [place] # Baso # Seg Neutrophils % Seg Neuts % (Manual) 30.0 L Lymphocytes % (Manual) 5.0 L Monocytes % (Manual) Eosinophils % (Manual) Basophils % (Manual) Nucleated RBC % Seg Neutrophils # Seg Neutrophils # Man Lymphocytes # (Manual) 0.4 L Monocytes # (Manual) Eosinophils # (Manual) Basophils # (Manual) PT INR Fibrinogen dRVVT Confirm Interp Factor V Activity POC ABG pH 7.310 L POC ABG pCO2 49.0 H POC ABG pO2 ABG pO2 ABG HCO3 ABG Base Excess ABG Hemoglobin Oxyhemoglobin Sodium 133 L Potassium Chloride 95.9 L Carbon Dioxide BUN 26 H Creatinine 2.0 H Glucose 116 H POC Glucose Lactic Acid Calcium 7.8 L Ionized Calcium Phosphorus Magnesium Direct Bilirubin AST ALT Alkaline Phosphatase Lactate Dehydrogenase Troponin T C-Reactive Protein Total Protein Albumin Prealbumin Triglycerides Cholesterol LDL Cholesterol Direct HDL Cholesterol 25-OH Vitamin D Total PTH Intact Urine pH Urine WBC (Auto) Urine Creatinine Urine Total Protein Fluid Total Protein Vancomycin Trough Rheumatoid Factor Complement C4 Miscellaneous Test Crossmatch 10/06/16 10/06/16 10/06/16 05:23 11:52 18:34 WBC RBC Hgb Hct MCV MCH MCHC RDW Plt Count Lymph % (Auto) [place] % (Auto) Lymph # [place] # Baso # Seg Neutrophils % Seg Neuts % (Manual) Lymphocytes % (Manual) Monocytes % (Manual) Eosinophils % (Manual) Basophils % (Manual) Nucleated RBC % Seg Neutrophils # Seg Neutrophils # Man Lymphocytes # (Manual) Monocytes # (Manual) Eosinophils # (Manual) Basophils # (Manual) PT INR Fibrinogen dRVVT Confirm Interp Factor V Activity POC ABG pH POC ABG pCO2 POC ABG pO2 ABG pO2 ABG HCO3 ABG Base Excess ABG Hemoglobin Oxyhemoglobin Sodium Potassium Chloride Carbon Dioxide BUN Creatinine Glucose POC Glucose 126 H 116 H 129 H Lactic Acid Calcium Ionized Calcium Phosphorus Magnesium Direct Bilirubin AST ALT Alkaline Phosphatase Lactate Dehydrogenase Troponin T C-Reactive Protein Total Protein Albumin Prealbumin Triglycerides Cholesterol LDL Cholesterol Direct HDL Cholesterol 25-OH Vitamin D Total PTH Intact Urine pH Urine WBC (Auto) Urine Creatinine Urine Total Protein Fluid Total Protein Vancomycin Trough Rheumatoid Factor Complement C4 Miscellaneous Test Crossmatch 10/07/16 10/07/16 10/07/16 03:45 05:00 10:00 WBC 17.0 H RBC 2.68 L Hgb 7.3 L Hct 25.3 L MCV MCH 27 L MCHC 29 L RDW 19.6 H Plt Count 74 L Lymph % (Auto) [place] % (Auto) Lymph # [place] # Baso # Seg Neutrophils % Seg Neuts % (Manual) Lymphocytes % (Manual) 12.0 L Monocytes % (Manual) Eosinophils % (Manual) Basophils % (Manual) Nucleated RBC % 4.0 H Seg Neutrophils # Seg Neutrophils # Man 10.7 H Lymphocytes # (Manual) Monocytes # (Manual) Eosinophils # (Manual) Basophils # (Manual) PT INR Fibrinogen dRVVT Confirm Interp Factor V Activity POC ABG pH POC ABG pCO2 POC ABG pO2 ABG pO2 ABG HCO3 ABG Base Excess ABG Hemoglobin Oxyhemoglobin Sodium 130 L Potassium 3.2 L Chloride 93.9 L Carbon Dioxide 20 L BUN 44 H Creatinine 2.7 H Glucose 129 H POC Glucose Lactic Acid Calcium 7.4 L Ionized Calcium Phosphorus Magnesium Direct Bilirubin AST ALT 6 L Alkaline Phosphatase 195 H Lactate Dehydrogenase Troponin T C-Reactive Protein Total Protein 4.9 L Albumin 1.0 L Prealbumin Triglycerides Cholesterol LDL Cholesterol Direct HDL Cholesterol 25-OH Vitamin D Total PTH Intact Urine pH Urine WBC (Auto) Urine Creatinine Urine Total Protein Fluid Total Protein Vancomycin Trough Rheumatoid Factor Complement C4 Miscellaneous Test Flexitest 1 H Crossmatch 10/07/16 10/07/16 10/07/16 10:00 11:24 18:10 WBC RBC Hgb Hct MCV MCH MCHC RDW Plt Count Lymph % (Auto) [place] % (Auto) Lymph # [place] # Baso # Seg Neutrophils % Seg Neuts % (Manual) Lymphocytes % (Manual) Monocytes % (Manual) Eosinophils % (Manual) Basophils % (Manual) Nucleated RBC % Seg Neutrophils # Seg Neutrophils # Man Lymphocytes # (Manual) Monocytes # (Manual) Eosinophils # (Manual) Basophils # (Manual) PT INR Fibrinogen dRVVT Confirm Interp Factor V Activity POC ABG pH POC ABG pCO2 POC ABG pO2 ABG pO2 ABG HCO3 ABG Base Excess ABG Hemoglobin Oxyhemoglobin Sodium Potassium Chloride Carbon Dioxide BUN Creatinine Glucose POC Glucose 116 H 130 H Lactic Acid Calcium Ionized Calcium Phosphorus Magnesium Direct Bilirubin AST ALT Alkaline Phosphatase Lactate Dehydrogenase Troponin T C-Reactive Protein 19.40 H Total Protein Albumin Prealbumin Triglycerides Cholesterol LDL Cholesterol Direct HDL Cholesterol 25-OH Vitamin D Total PTH Intact Urine pH Urine WBC (Auto) Urine Creatinine Urine Total Protein Fluid Total Protein Vancomycin Trough Rheumatoid Factor Complement C4 Miscellaneous Test Crossmatch 10/07/16 10/08/16 10/08/16 18:30 00:00 04:00 WBC RBC Hgb Hct MCV MCH MCHC RDW Plt Count Lymph % (Auto) [place] % (Auto) Lymph # [place] # Baso # Seg Neutrophils % Seg Neuts % (Manual) Lymphocytes % (Manual) Monocytes % (Manual) Eosinophils % (Manual) Basophils % (Manual) Nucleated RBC % Seg Neutrophils # Seg Neutrophils # Man Lymphocytes # (Manual) Monocytes # (Manual) Eosinophils # (Manual) Basophils # (Manual) PT INR Fibrinogen dRVVT Confirm Interp Factor V Activity POC ABG pH POC ABG pCO2 POC ABG pO2 ABG pO2 ABG HCO3 ABG Base Excess ABG Hemoglobin Oxyhemoglobin Sodium 132 L Potassium 3.3 L Chloride 93.6 L Carbon Dioxide 17 L BUN 59 H Creatinine 2.7 H Glucose 121 H POC Glucose 122 H Lactic Acid Calcium 7.6 L Ionized Calcium Phosphorus Magnesium Direct Bilirubin AST ALT Alkaline Phosphatase Lactate Dehydrogenase Troponin T C-Reactive Protein Total Protein Albumin Prealbumin Triglycerides Cholesterol LDL Cholesterol Direct HDL Cholesterol 25-OH Vitamin D Total PTH Intact Urine pH Urine WBC (Auto) > 182.0 H Urine Creatinine Urine Total Protein Fluid Total Protein Vancomycin Trough Rheumatoid Factor Complement C4 Miscellaneous Test Crossmatch 10/08/16 10/08/16 10/08/16 04:30 05:30 11:51 WBC RBC 5.15 H Hgb 14.4 H D Hct 44.5 H D MCV MCH MCHC RDW 19.5 H Plt Count 56 L Lymph % (Auto) [place] % (Auto) Lymph # [place] # Baso # Seg Neutrophils % Seg Neuts % (Manual) 24.0 L Lymphocytes % (Manual) 8.0 L Monocytes % (Manual) Eosinophils % (Manual) Basophils % (Manual) Nucleated RBC % 9.0 H Seg Neutrophils # Seg Neutrophils # Man Lymphocytes # (Manual) 0.7 L Monocytes # (Manual) Eosinophils # (Manual) Basophils # (Manual) PT INR Fibrinogen dRVVT Confirm Interp Factor V Activity POC ABG pH POC ABG pCO2 POC ABG pO2 ABG pO2 ABG HCO3 ABG Base Excess ABG Hemoglobin Oxyhemoglobin Sodium Potassium Chloride Carbon Dioxide BUN Creatinine Glucose POC Glucose 125 H 150 H Lactic Acid Calcium Ionized Calcium Phosphorus Magnesium Direct Bilirubin AST ALT Alkaline Phosphatase Lactate Dehydrogenase Troponin T C-Reactive Protein Total Protein Albumin Prealbumin Triglycerides Cholesterol LDL Cholesterol Direct HDL Cholesterol 25-OH Vitamin D Total PTH Intact Urine pH Urine WBC (Auto) Urine Creatinine Urine Total Protein Fluid Total Protein Vancomycin Trough Rheumatoid Factor Complement C4 Miscellaneous Test Crossmatch 10/08/16 10/08/16 10/08/16 12:49 17:07 19:30 WBC RBC Hgb 7.1 L D Hct 22.4 L D MCV MCH MCHC RDW Plt Count Lymph % (Auto) [place] % (Auto) Lymph # [place] # Baso # Seg Neutrophils % Seg Neuts % (Manual) Lymphocytes % (Manual) Monocytes % (Manual) Eosinophils % (Manual) Basophils % (Manual) Nucleated RBC % Seg Neutrophils # Seg Neutrophils # Man Lymphocytes # (Manual) Monocytes # (Manual) Eosinophils # (Manual) Basophils # (Manual) PT INR Fibrinogen dRVVT Confirm Interp Factor V Activity POC ABG pH POC ABG pCO2 28.2 L POC ABG pO2 111 H ABG pO2 ABG HCO3 ABG Base Excess ABG Hemoglobin Oxyhemoglobin Sodium Potassium Chloride Carbon Dioxide BUN Creatinine Glucose POC Glucose 145 H Lactic Acid Calcium Ionized Calcium Phosphorus Magnesium Direct Bilirubin AST ALT Alkaline Phosphatase Lactate Dehydrogenase Troponin T C-Reactive Protein Total Protein Albumin Prealbumin Triglycerides Cholesterol LDL Cholesterol Direct HDL Cholesterol 25-OH Vitamin D Total PTH Intact Urine pH Urine WBC (Auto) Urine Creatinine Urine Total Protein Fluid Total Protein Vancomycin Trough Rheumatoid Factor Complement C4 Miscellaneous Test Crossmatch 10/08/16 10/09/16 10/09/16 19:30 03:45 03:45 WBC 12.6 H RBC 2.36 L Hgb 6.7 L Hct 21.1 L MCV MCH MCHC RDW 19.5 H Plt Count 75 L Lymph % (Auto) [place] % (Auto) Lymph # [place] # Baso # Seg Neutrophils % Seg Neuts % (Manual) Lymphocytes % (Manual) Monocytes % (Manual) 10.0 H Eosinophils % (Manual) Basophils % (Manual) Nucleated RBC % 3.0 H Seg Neutrophils # Seg Neutrophils # Man Lymphocytes # (Manual) Monocytes # (Manual) 1.3 H Eosinophils # (Manual) Basophils # (Manual) PT 18.0 H INR 1.41 H Fibrinogen dRVVT Confirm Interp Factor V Activity POC ABG pH POC ABG pCO2 POC ABG pO2 ABG pO2 ABG HCO3 ABG Base Excess ABG Hemoglobin Oxyhemoglobin Sodium 135 L Potassium Chloride Carbon Dioxide 17 L BUN 81 H Creatinine 3.2 H Glucose 109 H POC Glucose Lactic Acid Calcium 7.4 L Ionized Calcium Phosphorus 4.60 H D Magnesium Direct Bilirubin AST ALT Alkaline Phosphatase Lactate Dehydrogenase Troponin T C-Reactive Protein Total Protein Albumin Prealbumin Triglycerides Cholesterol LDL Cholesterol Direct HDL Cholesterol 25-OH Vitamin D Total PTH Intact Urine pH Urine WBC (Auto) Urine Creatinine Urine Total Protein Fluid Total Protein Vancomycin Trough Rheumatoid Factor Complement C4 Miscellaneous Test Crossmatch 10/09/16 10/09/16 10/09/16 03:45 05:14 07:20 WBC RBC Hgb Hct MCV MCH MCHC RDW Plt Count Lymph % (Auto) [place] % (Auto) Lymph # [place] # Baso # Seg Neutrophils % Seg Neuts % (Manual) Lymphocytes % (Manual) Monocytes % (Manual) Eosinophils % (Manual) Basophils % (Manual) Nucleated RBC % Seg Neutrophils # Seg Neutrophils # Man Lymphocytes # (Manual) Monocytes # (Manual) Eosinophils # (Manual) Basophils # (Manual) PT 19.0 H INR 1.51 H Fibrinogen dRVVT Confirm Interp Factor V Activity POC ABG pH POC ABG pCO2 POC ABG pO2 ABG pO2 ABG HCO3 ABG Base Excess ABG Hemoglobin Oxyhemoglobin Sodium Potassium Chloride Carbon Dioxide BUN Creatinine Glucose POC Glucose 151 H Lactic Acid Calcium Ionized Calcium Phosphorus Magnesium Direct Bilirubin AST ALT Alkaline Phosphatase Lactate Dehydrogenase Troponin T C-Reactive Protein Total Protein Albumin Prealbumin Triglycerides Cholesterol LDL Cholesterol Direct HDL Cholesterol 25-OH Vitamin D Total PTH Intact Urine pH Urine WBC (Auto) Urine Creatinine Urine Total Protein Fluid Total Protein Vancomycin Trough Rheumatoid Factor Complement C4 Miscellaneous Test Crossmatch See Detail 10/09/16 10/09/16 10/09/16 11:46 16:20 16:43 WBC RBC Hgb 7.2 L Hct 22.2 L MCV MCH MCHC RDW Plt Count Lymph % (Auto) [place] % (Auto) Lymph # [place] # Baso # Seg Neutrophils % Seg Neuts % (Manual) Lymphocytes % (Manual) Monocytes % (Manual) Eosinophils % (Manual) Basophils % (Manual) Nucleated RBC % Seg Neutrophils # Seg Neutrophils # Man Lymphocytes # (Manual) Monocytes # (Manual) Eosinophils # (Manual) Basophils # (Manual) PT INR Fibrinogen dRVVT Confirm Interp Factor V Activity POC ABG pH POC ABG pCO2 POC ABG pO2 ABG pO2 ABG HCO3 ABG Base Excess ABG Hemoglobin Oxyhemoglobin Sodium Potassium Chloride Carbon Dioxide BUN Creatinine Glucose POC Glucose 133 H 141 H Lactic Acid Calcium Ionized Calcium Phosphorus Magnesium Direct Bilirubin AST ALT Alkaline Phosphatase Lactate Dehydrogenase Troponin T C-Reactive Protein Total Protein Albumin Prealbumin Triglycerides Cholesterol LDL Cholesterol Direct HDL Cholesterol 25-OH Vitamin D Total PTH Intact Urine pH Urine WBC (Auto) Urine Creatinine Urine Total Protein Fluid Total Protein Vancomycin Trough Rheumatoid Factor Complement C4 Miscellaneous Test Crossmatch 10/10/16 10/10/16 10/10/16 05:00 05:00 11:19 WBC 18.5 H RBC 2.19 L Hgb 6.4 L Hct 19.6 L* MCV MCH MCHC RDW 19.3 H Plt Count 93 L Lymph % (Auto) [place] % (Auto) Lymph # [place] # Baso # Seg Neutrophils % Seg Neuts % (Manual) Lymphocytes % (Manual) 10.0 L Monocytes % (Manual) Eosinophils % (Manual) Basophils % (Manual) Nucleated RBC % 4.0 H Seg Neutrophils # Seg Neutrophils # Man 11.3 H Lymphocytes # (Manual) Monocytes # (Manual) Eosinophils # (Manual) Basophils # (Manual) PT INR Fibrinogen dRVVT Confirm Interp Factor V Activity POC ABG pH POC ABG pCO2 POC ABG pO2 ABG pO2 ABG HCO3 ABG Base Excess ABG Hemoglobin Oxyhemoglobin Sodium Potassium 5.7 H D Chloride Carbon Dioxide 16 L BUN 94 H Creatinine 3.1 H Glucose 131 H POC Glucose 153 H Lactic Acid Calcium 8.2 L Ionized Calcium Phosphorus 5.10 H Magnesium 2.40 H Direct Bilirubin 0.3 H AST ALT < 5 L Alkaline Phosphatase 319 H Lactate Dehydrogenase Troponin T C-Reactive Protein Total Protein 5.1 L Albumin 1.0 L Prealbumin Triglycerides Cholesterol LDL Cholesterol Direct HDL Cholesterol 25-OH Vitamin D Total PTH Intact Urine pH Urine WBC (Auto) Urine Creatinine Urine Total Protein Fluid Total Protein Vancomycin Trough Rheumatoid Factor Complement C4 Miscellaneous Test Crossmatch 10/10/16 10/10/16 10/11/16 17:50 23:30 04:15 WBC RBC Hgb Hct MCV MCH MCHC RDW Plt Count Lymph % (Auto) [place] % (Auto) Lymph # [place] # Baso # Seg Neutrophils % Seg Neuts % (Manual) Lymphocytes % (Manual) Monocytes % (Manual) Eosinophils % (Manual) Basophils % (Manual) Nucleated RBC % Seg Neutrophils # Seg Neutrophils # Man Lymphocytes # (Manual) Monocytes # (Manual) Eosinophils # (Manual) Basophils # (Manual) PT INR Fibrinogen dRVVT Confirm Interp Factor V Activity POC ABG pH POC ABG pCO2 POC ABG pO2 ABG pO2 ABG HCO3 ABG Base Excess ABG Hemoglobin Oxyhemoglobin Sodium Potassium Chloride 96.4 L Carbon Dioxide 21 L BUN 57 H Creatinine 2.1 H Glucose 151 H POC Glucose 146 H 141 H Lactic Acid Calcium 8.3 L Ionized Calcium Phosphorus Magnesium Direct Bilirubin AST ALT Alkaline Phosphatase Lactate Dehydrogenase Troponin T C-Reactive Protein Total Protein Albumin Prealbumin Triglycerides Cholesterol LDL Cholesterol Direct HDL Cholesterol 25-OH Vitamin D Total PTH Intact Urine pH Urine WBC (Auto) Urine Creatinine Urine Total Protein Fluid Total Protein Vancomycin Trough Rheumatoid Factor Complement C4 Miscellaneous Test Crossmatch 10/11/16 10/11/16 10/11/16 04:15 04:15 05:30 WBC 28.3 H RBC 3.12 L Hgb 9.3 L Hct 28.7 L D MCV MCH MCHC RDW 17.7 H Plt Count 128 L Lymph % (Auto) [place] % (Auto) Lymph # [place] # Baso # Seg Neutrophils % Seg Neuts % (Manual) Lymphocytes % (Manual) Monocytes % (Manual) Eosinophils % (Manual) Basophils % (Manual) Nucleated RBC % Seg Neutrophils # Seg Neutrophils # Man Lymphocytes # (Manual) Monocytes # (Manual) Eosinophils # (Manual) Basophils # (Manual) PT INR Fibrinogen dRVVT Confirm Interp Factor V Activity POC ABG pH POC ABG pCO2 POC ABG pO2 ABG pO2 ABG HCO3 ABG Base Excess ABG Hemoglobin Oxyhemoglobin Sodium Potassium Chloride Carbon Dioxide BUN Creatinine Glucose POC Glucose 167 H Lactic Acid Calcium Ionized Calcium Phosphorus Magnesium Direct Bilirubin AST ALT Alkaline Phosphatase Lactate Dehydrogenase Troponin T C-Reactive Protein 15.80 H Total Protein Albumin Prealbumin Triglycerides Cholesterol LDL Cholesterol Direct HDL Cholesterol 25-OH Vitamin D Total PTH Intact Urine pH Urine WBC (Auto) Urine Creatinine Urine Total Protein Fluid Total Protein Vancomycin Trough Rheumatoid Factor Complement C4 Miscellaneous Test Crossmatch 10/11/16 10/11/16 10/11/16 11:40 15:49 23:57 WBC RBC Hgb Hct MCV MCH MCHC RDW Plt Count Lymph % (Auto) [place] % (Auto) Lymph # [place] # Baso # Seg Neutrophils % Seg Neuts % (Manual) Lymphocytes % (Manual) Monocytes % (Manual) Eosinophils % (Manual) Basophils % (Manual) Nucleated RBC % Seg Neutrophils # Seg Neutrophils # Man Lymphocytes # (Manual) Monocytes # (Manual) Eosinophils # (Manual) Basophils # (Manual) PT INR Fibrinogen dRVVT Confirm Interp Factor V Activity POC ABG pH POC ABG pCO2 POC ABG pO2 ABG pO2 ABG HCO3 ABG Base Excess ABG Hemoglobin Oxyhemoglobin Sodium Potassium Chloride Carbon Dioxide BUN Creatinine Glucose POC Glucose 139 H 168 H 161 H Lactic Acid Calcium Ionized Calcium Phosphorus Magnesium Direct Bilirubin AST ALT Alkaline Phosphatase Lactate Dehydrogenase Troponin T C-Reactive Protein Total Protein Albumin Prealbumin Triglycerides Cholesterol LDL Cholesterol Direct HDL Cholesterol 25-OH Vitamin D Total PTH Intact Urine pH Urine WBC (Auto) Urine Creatinine Urine Total Protein Fluid Total Protein Vancomycin Trough Rheumatoid Factor Complement C4 Miscellaneous Test Crossmatch 10/12/16 10/12/16 10/12/16 04:40 04:40 05:44 WBC 22.5 H RBC 2.88 L Hgb 8.8 L Hct 26.8 L MCV MCH MCHC RDW 17.8 H Plt Count Lymph % (Auto) [place] % (Auto) Lymph # [place] # Baso # Seg Neutrophils % Seg Neuts % (Manual) Lymphocytes % (Manual) Monocytes % (Manual) Eosinophils % (Manual) Basophils % (Manual) Nucleated RBC % Seg Neutrophils # Seg Neutrophils # Man Lymphocytes # (Manual) Monocytes # (Manual) Eosinophils # (Manual) Basophils # (Manual) PT INR Fibrinogen dRVVT Confirm Interp Factor V Activity POC ABG pH POC ABG pCO2 POC ABG pO2 ABG pO2 ABG HCO3 ABG Base Excess ABG Hemoglobin Oxyhemoglobin Sodium 134 L Potassium Chloride 93.0 L Carbon Dioxide BUN 74 H Creatinine 2.5 H Glucose 137 H POC Glucose 158 H Lactic Acid Calcium 8.2 L Ionized Calcium Phosphorus Magnesium Direct Bilirubin AST ALT Alkaline Phosphatase Lactate Dehydrogenase Troponin T C-Reactive Protein Total Protein Albumin Prealbumin Triglycerides Cholesterol LDL Cholesterol Direct HDL Cholesterol 25-OH Vitamin D Total PTH Intact Urine pH Urine WBC (Auto) Urine Creatinine Urine Total Protein Fluid Total Protein Vancomycin Trough Rheumatoid Factor Complement C4 Miscellaneous Test Crossmatch 10/12/16 10/12/16 10/12/16 12:27 18:18 23:46 WBC RBC Hgb Hct MCV MCH MCHC RDW Plt Count Lymph % (Auto) [place] % (Auto) Lymph # [place] # Baso # Seg Neutrophils % Seg Neuts % (Manual) Lymphocytes % (Manual) Monocytes % (Manual) Eosinophils % (Manual) Basophils % (Manual) Nucleated RBC % Seg Neutrophils # Seg Neutrophils # Man Lymphocytes # (Manual) Monocytes # (Manual) Eosinophils # (Manual) Basophils # (Manual) PT INR Fibrinogen dRVVT Confirm Interp Factor V Activity POC ABG pH POC ABG pCO2 POC ABG pO2 ABG pO2 ABG HCO3 ABG Base Excess ABG Hemoglobin Oxyhemoglobin Sodium Potassium Chloride Carbon Dioxide BUN Creatinine Glucose POC Glucose 153 H 140 H 150 H Lactic Acid Calcium Ionized Calcium Phosphorus Magnesium Direct Bilirubin AST ALT Alkaline Phosphatase Lactate Dehydrogenase Troponin T C-Reactive Protein Total Protein Albumin Prealbumin Triglycerides Cholesterol LDL Cholesterol Direct HDL Cholesterol 25-OH Vitamin D Total PTH Intact Urine pH Urine WBC (Auto) Urine Creatinine Urine Total Protein Fluid Total Protein Vancomycin Trough Rheumatoid Factor Complement C4 Miscellaneous Test Crossmatch 10/13/16 10/13/16 10/13/16 06:22 09:20 12:29 WBC RBC Hgb Hct MCV MCH MCHC RDW Plt Count Lymph % (Auto) [place] % (Auto) Lymph # [place] # Baso # Seg Neutrophils % Seg Neuts % (Manual) Lymphocytes % (Manual) Monocytes % (Manual) Eosinophils % (Manual) Basophils % (Manual) Nucleated RBC % Seg Neutrophils # Seg Neutrophils # Man Lymphocytes # (Manual) Monocytes # (Manual) Eosinophils # (Manual) Basophils # (Manual) PT INR Fibrinogen dRVVT Confirm Interp Factor V Activity POC ABG pH POC ABG pCO2 POC ABG pO2 ABG pO2 ABG HCO3 ABG Base Excess ABG Hemoglobin Oxyhemoglobin Sodium Potassium Chloride Carbon Dioxide BUN Creatinine Glucose POC Glucose 165 H 193 H Lactic Acid Calcium Ionized Calcium Phosphorus Magnesium Direct Bilirubin AST ALT Alkaline Phosphatase Lactate Dehydrogenase Troponin T C-Reactive Protein Total Protein Albumin Prealbumin Triglycerides Cholesterol LDL Cholesterol Direct HDL Cholesterol 25-OH Vitamin D Total PTH Intact Urine pH Urine WBC (Auto) Urine Creatinine Urine Total Protein Fluid Total Protein Vancomycin Trough Rheumatoid Factor Complement C4 Miscellaneous Test Flexitest 1 H Crossmatch 10/13/16 10/13/16 10/13/16 18:09 Unknown Unknown WBC 23.4 H RBC 2.83 L Hgb 8.7 L Hct 26.1 L MCV MCH MCHC RDW 18.1 H Plt Count Lymph % (Auto) [place] % (Auto) Lymph # [place] # Baso # Seg Neutrophils % Seg Neuts % (Manual) Lymphocytes % (Manual) Monocytes % (Manual) Eosinophils % (Manual) Basophils % (Manual) Nucleated RBC % Seg Neutrophils # Seg Neutrophils # Man Lymphocytes # (Manual) Monocytes # (Manual) Eosinophils # (Manual) Basophils # (Manual) PT INR Fibrinogen dRVVT Confirm Interp Factor V Activity POC ABG pH POC ABG pCO2 POC ABG pO2 ABG pO2 ABG HCO3 ABG Base Excess ABG Hemoglobin Oxyhemoglobin Sodium Potassium Chloride 95.8 L Carbon Dioxide BUN 82 H Creatinine 2.6 H Glucose 152 H POC Glucose 166 H Lactic Acid Calcium Ionized Calcium Phosphorus Magnesium Direct Bilirubin AST ALT Alkaline Phosphatase Lactate Dehydrogenase Troponin T C-Reactive Protein Total Protein Albumin Prealbumin Triglycerides Cholesterol LDL Cholesterol Direct HDL Cholesterol 25-OH Vitamin D Total PTH Intact Urine pH Urine WBC (Auto) Urine Creatinine Urine Total Protein Fluid Total Protein Vancomycin Trough Rheumatoid Factor Complement C4 Miscellaneous Test Crossmatch 10/14/16 10/14/16 10/14/16 05:38 06:35 08:10 WBC 20.7 H RBC 2.81 L Hgb 8.4 L Hct 27.2 L MCV MCH MCHC RDW 19.4 H Plt Count Lymph % (Auto) [place] % (Auto) Lymph # [place] # Baso # Seg Neutrophils % Seg Neuts % (Manual) Lymphocytes % (Manual) Monocytes % (Manual) Eosinophils % (Manual) Basophils % (Manual) Nucleated RBC % Seg Neutrophils # Seg Neutrophils # Man Lymphocytes # (Manual) Monocytes # (Manual) Eosinophils # (Manual) Basophils # (Manual) PT INR Fibrinogen dRVVT Confirm Interp Factor V Activity POC ABG pH POC ABG pCO2 POC ABG pO2 ABG pO2 ABG HCO3 ABG Base Excess ABG Hemoglobin Oxyhemoglobin Sodium Potassium Chloride Carbon Dioxide BUN 58 H Creatinine 1.9 H Glucose 169 H POC Glucose 195 H Lactic Acid Calcium Ionized Calcium Phosphorus Magnesium Direct Bilirubin AST ALT Alkaline Phosphatase Lactate Dehydrogenase Troponin T C-Reactive Protein Total Protein Albumin Prealbumin Triglycerides Cholesterol LDL Cholesterol Direct HDL Cholesterol 25-OH Vitamin D Total PTH Intact Urine pH Urine WBC (Auto) Urine Creatinine Urine Total Protein Fluid Total Protein Vancomycin Trough Rheumatoid Factor Complement C4 Miscellaneous Test Crossmatch 10/14/16 10/14/16 10/14/16 11:44 17:13 23:28 WBC RBC Hgb Hct MCV MCH MCHC RDW Plt Count Lymph % (Auto) [place] % (Auto) Lymph # [place] # Baso # Seg Neutrophils % Seg Neuts % (Manual) Lymphocytes % (Manual) Monocytes % (Manual) Eosinophils % (Manual) Basophils % (Manual) Nucleated RBC % Seg Neutrophils # Seg Neutrophils # Man Lymphocytes # (Manual) Monocytes # (Manual) Eosinophils # (Manual) Basophils # (Manual) PT INR Fibrinogen dRVVT Confirm Interp Factor V Activity POC ABG pH POC ABG pCO2 POC ABG pO2 ABG pO2 ABG HCO3 ABG Base Excess ABG Hemoglobin Oxyhemoglobin Sodium Potassium Chloride Carbon Dioxide BUN Creatinine Glucose POC Glucose 174 H 121 H 151 H Lactic Acid Calcium Ionized Calcium Phosphorus Magnesium Direct Bilirubin AST ALT Alkaline Phosphatase Lactate Dehydrogenase Troponin T C-Reactive Protein Total Protein Albumin Prealbumin Triglycerides Cholesterol LDL Cholesterol Direct HDL Cholesterol 25-OH Vitamin D Total PTH Intact Urine pH Urine WBC (Auto) Urine Creatinine Urine Total Protein Fluid Total Protein Vancomycin Trough Rheumatoid Factor Complement C4 Miscellaneous Test Crossmatch 10/15/16 10/15/16 10/15/16 05:06 12:26 17:48 WBC RBC Hgb Hct MCV MCH MCHC RDW Plt Count Lymph % (Auto) [place] % (Auto) Lymph # [place] # Baso # Seg Neutrophils % Seg Neuts % (Manual) Lymphocytes % (Manual) Monocytes % (Manual) Eosinophils % (Manual) Basophils % (Manual) Nucleated RBC % Seg Neutrophils # Seg Neutrophils # Man Lymphocytes # (Manual) Monocytes # (Manual) Eosinophils # (Manual) Basophils # (Manual) PT INR Fibrinogen dRVVT Confirm Interp Factor V Activity POC ABG pH POC ABG pCO2 POC ABG pO2 ABG pO2 ABG HCO3 ABG Base Excess ABG Hemoglobin Oxyhemoglobin Sodium Potassium Chloride Carbon Dioxide BUN Creatinine Glucose POC Glucose 151 H 149 H 153 H Lactic Acid Calcium Ionized Calcium Phosphorus Magnesium Direct Bilirubin AST ALT Alkaline Phosphatase Lactate Dehydrogenase Troponin T C-Reactive Protein Total Protein Albumin Prealbumin Triglycerides Cholesterol LDL Cholesterol Direct HDL Cholesterol 25-OH Vitamin D Total PTH Intact Urine pH Urine WBC (Auto) Urine Creatinine Urine Total Protein Fluid Total Protein Vancomycin Trough Rheumatoid Factor Complement C4 Miscellaneous Test Crossmatch 10/15/16 10/15/16 10/16/16 Unknown Unknown 00:02 WBC 23.4 H RBC 2.78 L Hgb 8.5 L Hct 25.7 L MCV MCH MCHC RDW 18.7 H Plt Count Lymph % (Auto) [place] % (Auto) Lymph # [place] # Baso # Seg Neutrophils % Seg Neuts % (Manual) Lymphocytes % (Manual) Monocytes % (Manual) Eosinophils % (Manual) Basophils % (Manual) Nucleated RBC % Seg Neutrophils # Seg Neutrophils # Man Lymphocytes # (Manual) Monocytes # (Manual) Eosinophils # (Manual) Basophils # (Manual) PT INR Fibrinogen dRVVT Confirm Interp Factor V Activity POC ABG pH POC ABG pCO2 POC ABG pO2 ABG pO2 ABG HCO3 ABG Base Excess ABG Hemoglobin Oxyhemoglobin Sodium Potassium Chloride Carbon Dioxide BUN 73 H Creatinine 2.3 H Glucose 120 H POC Glucose 137 H Lactic Acid Calcium Ionized Calcium Phosphorus Magnesium Direct Bilirubin AST ALT Alkaline Phosphatase Lactate Dehydrogenase Troponin T C-Reactive Protein Total Protein Albumin Prealbumin Triglycerides Cholesterol LDL Cholesterol Direct HDL Cholesterol 25-OH Vitamin D Total PTH Intact Urine pH Urine WBC (Auto) Urine Creatinine Urine Total Protein Fluid Total Protein Vancomycin Trough Rheumatoid Factor Complement C4 Miscellaneous Test Crossmatch 10/16/16 10/16/16 10/16/16 05:44 06:25 06:25 WBC 22.5 H RBC 2.76 L Hgb 8.3 L Hct 25.2 L MCV MCH MCHC RDW 18.3 H Plt Count Lymph % (Auto) [place] % (Auto) Lymph # [place] # Baso # Seg Neutrophils % Seg Neuts % (Manual) Lymphocytes % (Manual) Monocytes % (Manual) Eosinophils % (Manual) Basophils % (Manual) Nucleated RBC % Seg Neutrophils # Seg Neutrophils # Man Lymphocytes # (Manual) Monocytes # (Manual) Eosinophils # (Manual) Basophils # (Manual) PT INR Fibrinogen dRVVT Confirm Interp Factor V Activity POC ABG pH POC ABG pCO2 POC ABG pO2 ABG pO2 ABG HCO3 ABG Base Excess ABG Hemoglobin Oxyhemoglobin Sodium Potassium Chloride Carbon Dioxide BUN 92 H Creatinine 3.0 H Glucose 138 H POC Glucose 110 H Lactic Acid Calcium Ionized Calcium Phosphorus Magnesium Direct Bilirubin AST ALT Alkaline Phosphatase Lactate Dehydrogenase Troponin T C-Reactive Protein Total Protein Albumin Prealbumin Triglycerides Cholesterol LDL Cholesterol Direct HDL Cholesterol 25-OH Vitamin D Total PTH Intact Urine pH Urine WBC (Auto) Urine Creatinine Urine Total Protein Fluid Total Protein Vancomycin Trough Rheumatoid Factor Complement C4 Miscellaneous Test Crossmatch 10/16/16 10/16/16 10/16/16 11:27 11:48 17:36 WBC RBC Hgb Hct MCV MCH MCHC RDW Plt Count Lymph % (Auto) [place] % (Auto) Lymph # [place] # Baso # Seg Neutrophils % Seg Neuts % (Manual) Lymphocytes % (Manual) Monocytes % (Manual) Eosinophils % (Manual) Basophils % (Manual) Nucleated RBC % Seg Neutrophils # Seg Neutrophils # Man Lymphocytes # (Manual) Monocytes # (Manual) Eosinophils # (Manual) Basophils # (Manual) PT INR Fibrinogen dRVVT Confirm Interp Factor V Activity POC ABG pH 7.582 H POC ABG pCO2 27.4 L POC ABG pO2 110 H ABG pO2 ABG HCO3 ABG Base Excess ABG Hemoglobin Oxyhemoglobin Sodium Potassium Chloride Carbon Dioxide BUN Creatinine Glucose POC Glucose 121 H 133 H Lactic Acid Calcium Ionized Calcium Phosphorus Magnesium Direct Bilirubin AST ALT Alkaline Phosphatase Lactate Dehydrogenase Troponin T C-Reactive Protein Total Protein Albumin Prealbumin Triglycerides Cholesterol LDL Cholesterol Direct HDL Cholesterol 25-OH Vitamin D Total PTH Intact Urine pH Urine WBC (Auto) Urine Creatinine Urine Total Protein Fluid Total Protein Vancomycin Trough Rheumatoid Factor Complement C4 Miscellaneous Test Crossmatch 10/16/16 10/17/16 10/17/16 20:48 04:24 04:24 WBC 21.4 H RBC 2.72 L Hgb 8.0 L Hct 25.2 L MCV MCH MCHC RDW 18.0 H Plt Count Lymph % (Auto) [place] % (Auto) Lymph # [place] # Baso # Seg Neutrophils % Seg Neuts % (Manual) Lymphocytes % (Manual) Monocytes % (Manual) Eosinophils % (Manual) Basophils % (Manual) Nucleated RBC % Seg Neutrophils # Seg Neutrophils # Man Lymphocytes # (Manual) Monocytes # (Manual) Eosinophils # (Manual) Basophils # (Manual) PT INR Fibrinogen dRVVT Confirm Interp Factor V Activity POC ABG pH 7.561 H POC ABG pCO2 24.4 L POC ABG pO2 77 L ABG pO2 ABG HCO3 ABG Base Excess ABG Hemoglobin Oxyhemoglobin Sodium 148 H Potassium Chloride Carbon Dioxide BUN 104 H Creatinine 3.0 H Glucose 149 H POC Glucose Lactic Acid Calcium Ionized Calcium Phosphorus Magnesium Direct Bilirubin AST ALT Alkaline Phosphatase 138 H Lactate Dehydrogenase Troponin T C-Reactive Protein Total Protein 6.2 L Albumin 1.5 L Prealbumin Triglycerides Cholesterol LDL Cholesterol Direct HDL Cholesterol 25-OH Vitamin D Total PTH Intact Urine pH Urine WBC (Auto) Urine Creatinine Urine Total Protein Fluid Total Protein Vancomycin Trough Rheumatoid Factor Complement C4 Miscellaneous Test Crossmatch 10/17/16 10/17/16 10/17/16 06:02 12:17 17:14 WBC RBC Hgb Hct MCV MCH MCHC RDW Plt Count Lymph % (Auto) [place] % (Auto) Lymph # [place] # Baso # Seg Neutrophils % Seg Neuts % (Manual) Lymphocytes % (Manual) Monocytes % (Manual) Eosinophils % (Manual) Basophils % (Manual) Nucleated RBC % Seg Neutrophils # Seg Neutrophils # Man Lymphocytes # (Manual) Monocytes # (Manual) Eosinophils # (Manual) Basophils # (Manual) PT INR Fibrinogen dRVVT Confirm Interp Factor V Activity POC ABG pH POC ABG pCO2 POC ABG pO2 ABG pO2 ABG HCO3 ABG Base Excess ABG Hemoglobin Oxyhemoglobin Sodium Potassium Chloride Carbon Dioxide BUN Creatinine Glucose POC Glucose 170 H 167 H 126 H Lactic Acid Calcium Ionized Calcium Phosphorus Magnesium Direct Bilirubin AST ALT Alkaline Phosphatase Lactate Dehydrogenase Troponin T C-Reactive Protein Total Protein Albumin Prealbumin Triglycerides Cholesterol LDL Cholesterol Direct HDL Cholesterol 25-OH Vitamin D Total PTH Intact Urine pH Urine WBC (Auto) Urine Creatinine Urine Total Protein Fluid Total Protein Vancomycin Trough Rheumatoid Factor Complement C4 Miscellaneous Test Crossmatch 10/17/16 10/18/16 10/18/16 23:17 04:00 04:00 WBC 20.7 H RBC 2.47 L Hgb 7.4 L Hct 22.9 L MCV MCH MCHC RDW 17.5 H Plt Count Lymph % (Auto) [place] % (Auto) Lymph # [place] # Baso # Seg Neutrophils % Seg Neuts % (Manual) Lymphocytes % (Manual) Monocytes % (Manual) Eosinophils % (Manual) Basophils % (Manual) Nucleated RBC % Seg Neutrophils # Seg Neutrophils # Man Lymphocytes # (Manual) Monocytes # (Manual) Eosinophils # (Manual) Basophils # (Manual) PT INR Fibrinogen dRVVT Confirm Interp Factor V Activity POC ABG pH POC ABG pCO2 POC ABG pO2 ABG pO2 ABG HCO3 ABG Base Excess ABG Hemoglobin Oxyhemoglobin Sodium 149 H Potassium Chloride 107.9 H Carbon Dioxide 20 L BUN 117 H Creatinine 3.2 H Glucose 119 H POC Glucose 121 H Lactic Acid Calcium Ionized Calcium Phosphorus Magnesium Direct Bilirubin AST ALT Alkaline Phosphatase Lactate Dehydrogenase Troponin T C-Reactive Protein Total Protein Albumin Prealbumin Triglycerides Cholesterol LDL Cholesterol Direct HDL Cholesterol 25-OH Vitamin D Total PTH Intact Urine pH Urine WBC (Auto) Urine Creatinine Urine Total Protein Fluid Total Protein Vancomycin Trough Rheumatoid Factor Complement C4 Miscellaneous Test Crossmatch 10/18/16 10/18/16 10/18/16 05:23 10:46 17:30 WBC RBC Hgb Hct MCV MCH MCHC RDW Plt Count Lymph % (Auto) [place] % (Auto) Lymph # [place] # Baso # Seg Neutrophils % Seg Neuts % (Manual) Lymphocytes % (Manual) Monocytes % (Manual) Eosinophils % (Manual) Basophils % (Manual) Nucleated RBC % Seg Neutrophils # Seg Neutrophils # Man Lymphocytes # (Manual) Monocytes # (Manual) Eosinophils # (Manual) Basophils # (Manual) PT INR Fibrinogen dRVVT Confirm Interp Factor V Activity POC ABG pH POC ABG pCO2 POC ABG pO2 ABG pO2 ABG HCO3 ABG Base Excess ABG Hemoglobin Oxyhemoglobin Sodium Potassium Chloride Carbon Dioxide BUN Creatinine Glucose POC Glucose 119 H 155 H 124 H Lactic Acid Calcium Ionized Calcium Phosphorus Magnesium Direct Bilirubin AST ALT Alkaline Phosphatase Lactate Dehydrogenase Troponin T C-Reactive Protein Total Protein Albumin Prealbumin Triglycerides Cholesterol LDL Cholesterol Direct HDL Cholesterol 25-OH Vitamin D Total PTH Intact Urine pH Urine WBC (Auto) Urine Creatinine Urine Total Protein Fluid Total Protein Vancomycin Trough Rheumatoid Factor Complement C4 Miscellaneous Test Crossmatch 10/19/16 10/19/16 10/19/16 04:00 04:00 05:25 WBC 17.4 H RBC 2.54 L Hgb 7.7 L Hct 23.6 L MCV MCH MCHC RDW 17.3 H Plt Count Lymph % (Auto) [place] % (Auto) Lymph # [place] # Baso # Seg Neutrophils % Seg Neuts % (Manual) Lymphocytes % (Manual) Monocytes % (Manual) Eosinophils % (Manual) Basophils % (Manual) Nucleated RBC % Seg Neutrophils # Seg Neutrophils # Man Lymphocytes # (Manual) Monocytes # (Manual) Eosinophils # (Manual) Basophils # (Manual) PT INR Fibrinogen dRVVT Confirm Interp Factor V Activity POC ABG pH POC ABG pCO2 POC ABG pO2 ABG pO2 ABG HCO3 ABG Base Excess ABG Hemoglobin Oxyhemoglobin Sodium Potassium Chloride Carbon Dioxide BUN 72 H Creatinine 2.1 H Glucose 116 H POC Glucose 119 H Lactic Acid Calcium Ionized Calcium Phosphorus Magnesium Direct Bilirubin AST ALT Alkaline Phosphatase Lactate Dehydrogenase Troponin T C-Reactive Protein Total Protein Albumin Prealbumin Triglycerides Cholesterol LDL Cholesterol Direct HDL Cholesterol 25-OH Vitamin D Total PTH Intact Urine pH Urine WBC (Auto) Urine Creatinine Urine Total Protein Fluid Total Protein Vancomycin Trough Rheumatoid Factor Complement C4 Miscellaneous Test Crossmatch 10/19/16 10/19/16 10/20/16 11:46 23:59 06:00 WBC RBC Hgb Hct MCV MCH MCHC RDW Plt Count Lymph % (Auto) [place] % (Auto) Lymph # [place] # Baso # Seg Neutrophils % Seg Neuts % (Manual) Lymphocytes % (Manual) Monocytes % (Manual) Eosinophils % (Manual) Basophils % (Manual) Nucleated RBC % Seg Neutrophils # Seg Neutrophils # Man Lymphocytes # (Manual) Monocytes # (Manual) Eosinophils # (Manual) Basophils # (Manual) PT INR Fibrinogen dRVVT Confirm Interp Factor V Activity POC ABG pH POC ABG pCO2 POC ABG pO2 ABG pO2 ABG HCO3 ABG Base Excess ABG Hemoglobin Oxyhemoglobin Sodium Potassium Chloride Carbon Dioxide 17 L BUN 94 H Creatinine 2.7 H Glucose POC Glucose 116 H 117 H Lactic Acid Calcium Ionized Calcium Phosphorus Magnesium Direct Bilirubin AST ALT Alkaline Phosphatase Lactate Dehydrogenase Troponin T C-Reactive Protein Total Protein Albumin Prealbumin Triglycerides Cholesterol LDL Cholesterol Direct HDL Cholesterol 25-OH Vitamin D Total PTH Intact Urine pH Urine WBC (Auto) Urine Creatinine Urine Total Protein Fluid Total Protein Vancomycin Trough Rheumatoid Factor Complement C4 Miscellaneous Test Crossmatch 10/20/16 10/20/16 10/20/16 06:00 11:49 16:00 WBC 19.7 H RBC 2.51 L Hgb 7.7 L Hct 23.5 L MCV MCH MCHC RDW 17.5 H Plt Count Lymph % (Auto) [place] % (Auto) Lymph # [place] # Baso # Seg Neutrophils % Seg Neuts % (Manual) Lymphocytes % (Manual) Monocytes % (Manual) Eosinophils % (Manual) Basophils % (Manual) Nucleated RBC % Seg Neutrophils # Seg Neutrophils # Man Lymphocytes # (Manual) Monocytes # (Manual) Eosinophils # (Manual) Basophils # (Manual) PT INR Fibrinogen dRVVT Confirm Interp Factor V Activity POC ABG pH POC ABG pCO2 POC ABG pO2 ABG pO2 ABG HCO3 ABG Base Excess ABG Hemoglobin Oxyhemoglobin Sodium Potassium Chloride Carbon Dioxide BUN Creatinine Glucose POC Glucose 117 H Lactic Acid Calcium Ionized Calcium Phosphorus Magnesium Direct Bilirubin AST ALT Alkaline Phosphatase Lactate Dehydrogenase Troponin T C-Reactive Protein Total Protein Albumin Prealbumin Triglycerides Cholesterol LDL Cholesterol Direct HDL Cholesterol 25-OH Vitamin D Total PTH Intact Urine pH Urine WBC (Auto) Urine Creatinine Urine Total Protein Fluid Total Protein Vancomycin Trough Rheumatoid Factor Complement C4 Miscellaneous Test Flexitest 1 H Crossmatch 10/20/16 10/20/16 10/21/16 18:36 23:39 04:00 WBC RBC Hgb Hct MCV MCH MCHC RDW Plt Count Lymph % (Auto) [place] % (Auto) Lymph # [place] # Baso # Seg Neutrophils % Seg Neuts % (Manual) Lymphocytes % (Manual) Monocytes % (Manual) Eosinophils % (Manual) Basophils % (Manual) Nucleated RBC % Seg Neutrophils # Seg Neutrophils # Man Lymphocytes # (Manual) Monocytes # (Manual) Eosinophils # (Manual) Basophils # (Manual) PT INR Fibrinogen dRVVT Confirm Interp Factor V Activity POC ABG pH POC ABG pCO2 POC ABG pO2 ABG pO2 ABG HCO3 ABG Base Excess ABG Hemoglobin Oxyhemoglobin Sodium Potassium 5.4 H D Chloride Carbon Dioxide 15 L BUN 110 H Creatinine 3.0 H Glucose POC Glucose 127 H 114 H Lactic Acid Calcium Ionized Calcium Phosphorus Magnesium Direct Bilirubin AST ALT Alkaline Phosphatase Lactate Dehydrogenase Troponin T C-Reactive Protein Total Protein Albumin Prealbumin Triglycerides Cholesterol LDL Cholesterol Direct HDL Cholesterol 25-OH Vitamin D Total PTH Intact Urine pH Urine WBC (Auto) Urine Creatinine Urine Total Protein Fluid Total Protein Vancomycin Trough Rheumatoid Factor Complement C4 Miscellaneous Test Crossmatch 10/21/16 10/21/16 10/22/16 05:54 23:46 05:18 WBC RBC Hgb Hct MCV MCH MCHC RDW Plt Count Lymph % (Auto) [place] % (Auto) Lymph # [place] # Baso # Seg Neutrophils % Seg Neuts % (Manual) Lymphocytes % (Manual) Monocytes % (Manual) Eosinophils % (Manual) Basophils % (Manual) Nucleated RBC % Seg Neutrophils # Seg Neutrophils # Man Lymphocytes # (Manual) Monocytes # (Manual) Eosinophils # (Manual) Basophils # (Manual) PT INR Fibrinogen dRVVT Confirm Interp Factor V Activity POC ABG pH POC ABG pCO2 POC ABG pO2 ABG pO2 ABG HCO3 ABG Base Excess ABG Hemoglobin Oxyhemoglobin Sodium Potassium Chloride Carbon Dioxide BUN Creatinine Glucose POC Glucose 119 H 108 H 109 H Lactic Acid Calcium Ionized Calcium Phosphorus Magnesium Direct Bilirubin AST ALT Alkaline Phosphatase Lactate Dehydrogenase Troponin T C-Reactive Protein Total Protein Albumin Prealbumin Triglycerides Cholesterol LDL Cholesterol Direct HDL Cholesterol 25-OH Vitamin D Total PTH Intact Urine pH Urine WBC (Auto) Urine Creatinine Urine Total Protein Fluid Total Protein Vancomycin Trough Rheumatoid Factor Complement C4 Miscellaneous Test Crossmatch 10/22/16 10/22/16 10/22/16 06:40 06:40 06:40 WBC 14.0 H RBC 2.03 L Hgb 7.0 L Hct 20.5 L MCV 98 H MCH 34 H MCHC 35 H RDW 17.8 H Plt Count Lymph % (Auto) [place] % (Auto) 9.9 H Lymph # [place] # 1.4 H Baso # 0.2 H Seg Neutrophils % 72.0 H Seg Neuts % (Manual) Lymphocytes % (Manual) Monocytes % (Manual) Eosinophils % (Manual) Basophils % (Manual) Nucleated RBC % Seg Neutrophils # 10.0 H Seg Neutrophils # Man Lymphocytes # (Manual) Monocytes # (Manual) Eosinophils # (Manual) Basophils # (Manual) PT INR Fibrinogen dRVVT Confirm Interp Factor V Activity POC ABG pH POC ABG pCO2 POC ABG pO2 ABG pO2 ABG HCO3 ABG Base Excess ABG Hemoglobin Oxyhemoglobin Sodium 130 L D Potassium Chloride 92.4 L Carbon Dioxide 20 L BUN 50 H Creatinine 1.6 H Glucose 589 H* POC Glucose Lactic Acid Calcium 7.8 L D Ionized Calcium Phosphorus Magnesium 1.60 L Direct Bilirubin AST ALT Alkaline Phosphatase Lactate Dehydrogenase Troponin T C-Reactive Protein Total Protein Albumin Prealbumin Triglycerides Cholesterol LDL Cholesterol Direct HDL Cholesterol 25-OH Vitamin D Total PTH Intact Urine pH Urine WBC (Auto) Urine Creatinine Urine Total Protein Fluid Total Protein Vancomycin Trough Rheumatoid Factor Complement C4 Miscellaneous Test Crossmatch 10/22/16 10/22/16 10/22/16 11:39 16:44 23:36 WBC RBC Hgb Hct MCV MCH MCHC RDW Plt Count Lymph % (Auto) [place] % (Auto) Lymph # [place] # Baso # Seg Neutrophils % Seg Neuts % (Manual) Lymphocytes % (Manual) Monocytes % (Manual) Eosinophils % (Manual) Basophils % (Manual) Nucleated RBC % Seg Neutrophils # Seg Neutrophils # Man Lymphocytes # (Manual) Monocytes # (Manual) Eosinophils # (Manual) Basophils # (Manual) PT INR Fibrinogen dRVVT Confirm Interp Factor V Activity POC ABG pH POC ABG pCO2 POC ABG pO2 ABG pO2 ABG HCO3 ABG Base Excess ABG Hemoglobin Oxyhemoglobin Sodium Potassium Chloride Carbon Dioxide BUN Creatinine Glucose POC Glucose 142 H 163 H 123 H Lactic Acid Calcium Ionized Calcium Phosphorus Magnesium Direct Bilirubin AST ALT Alkaline Phosphatase Lactate Dehydrogenase Troponin T C-Reactive Protein Total Protein Albumin Prealbumin Triglycerides Cholesterol LDL Cholesterol Direct HDL Cholesterol 25-OH Vitamin D Total PTH Intact Urine pH Urine WBC (Auto) Urine Creatinine Urine Total Protein Fluid Total Protein Vancomycin Trough Rheumatoid Factor Complement C4 Miscellaneous Test Crossmatch 10/23/16 10/23/16 10/23/16 04:58 06:00 12:12 WBC RBC Hgb Hct MCV MCH MCHC RDW Plt Count Lymph % (Auto) [place] % (Auto) Lymph # [place] # Baso # Seg Neutrophils % Seg Neuts % (Manual) Lymphocytes % (Manual) Monocytes % (Manual) Eosinophils % (Manual) Basophils % (Manual) Nucleated RBC % Seg Neutrophils # Seg Neutrophils # Man Lymphocytes # (Manual) Monocytes # (Manual) Eosinophils # (Manual) Basophils # (Manual) PT INR Fibrinogen dRVVT Confirm Interp Factor V Activity POC ABG pH POC ABG pCO2 POC ABG pO2 ABG pO2 ABG HCO3 ABG Base Excess ABG Hemoglobin Oxyhemoglobin Sodium 133 L Potassium 3.5 L Chloride 96.1 L Carbon Dioxide 18 L BUN 76 H Creatinine 2.1 H Glucose POC Glucose 133 H 138 H Lactic Acid Calcium 8.3 L Ionized Calcium Phosphorus Magnesium Direct Bilirubin AST ALT Alkaline Phosphatase Lactate Dehydrogenase Troponin T C-Reactive Protein Total Protein Albumin Prealbumin Triglycerides Cholesterol LDL Cholesterol Direct HDL Cholesterol 25-OH Vitamin D Total PTH Intact Urine pH Urine WBC (Auto) Urine Creatinine Urine Total Protein Fluid Total Protein Vancomycin Trough Rheumatoid Factor Complement C4 Miscellaneous Test Crossmatch 10/23/16 10/23/16 10/24/16 16:53 23:37 04:00 WBC RBC Hgb Hct MCV MCH MCHC RDW Plt Count Lymph % (Auto) [place] % (Auto) Lymph # [place] # Baso # Seg Neutrophils % Seg Neuts % (Manual) Lymphocytes % (Manual) Monocytes % (Manual) Eosinophils % (Manual) Basophils % (Manual) Nucleated RBC % Seg Neutrophils # Seg Neutrophils # Man Lymphocytes # (Manual) Monocytes # (Manual) Eosinophils # (Manual) Basophils # (Manual) PT INR Fibrinogen dRVVT Confirm Interp Factor V Activity POC ABG pH POC ABG pCO2 POC ABG pO2 ABG pO2 ABG HCO3 ABG Base Excess ABG Hemoglobin Oxyhemoglobin Sodium 131 L Potassium Chloride 94.5 L Carbon Dioxide 19 L BUN 97 H Creatinine 2.6 H Glucose 110 H POC Glucose 125 H 123 H Lactic Acid Calcium 8.3 L Ionized Calcium Phosphorus Magnesium Direct Bilirubin AST ALT Alkaline Phosphatase Lactate Dehydrogenase Troponin T C-Reactive Protein Total Protein Albumin Prealbumin Triglycerides Cholesterol LDL Cholesterol Direct HDL Cholesterol 25-OH Vitamin D Total PTH Intact Urine pH Urine WBC (Auto) Urine Creatinine Urine Total Protein Fluid Total Protein Vancomycin Trough Rheumatoid Factor Complement C4 Miscellaneous Test Crossmatch 10/24/16 10/24/16 10/24/16 07:49 11:39 17:52 WBC RBC Hgb 6.0 L Hct 19.7 L* MCV MCH MCHC RDW Plt Count Lymph % (Auto) [place] % (Auto) Lymph # [place] # Baso # Seg Neutrophils % Seg Neuts % (Manual) Lymphocytes % (Manual) Monocytes % (Manual) Eosinophils % (Manual) Basophils % (Manual) Nucleated RBC % Seg Neutrophils # Seg Neutrophils # Man Lymphocytes # (Manual) Monocytes # (Manual) Eosinophils # (Manual) Basophils # (Manual) PT INR Fibrinogen dRVVT Confirm Interp Factor V Activity POC ABG pH POC ABG pCO2 POC ABG pO2 ABG pO2 ABG HCO3 ABG Base Excess ABG Hemoglobin Oxyhemoglobin Sodium Potassium Chloride Carbon Dioxide BUN Creatinine Glucose POC Glucose 106 H 158 H Lactic Acid Calcium Ionized Calcium Phosphorus Magnesium Direct Bilirubin AST ALT Alkaline Phosphatase Lactate Dehydrogenase Troponin T C-Reactive Protein Total Protein Albumin Prealbumin Triglycerides Cholesterol LDL Cholesterol Direct HDL Cholesterol 25-OH Vitamin D Total PTH Intact Urine pH Urine WBC (Auto) Urine Creatinine Urine Total Protein Fluid Total Protein Vancomycin Trough Rheumatoid Factor Complement C4 Miscellaneous Test Crossmatch 10/24/16 10/24/16 10/24/16 20:00 22:27 Unknown WBC RBC Hgb 9.4 L D Hct 27.5 L D MCV MCH MCHC RDW Plt Count Lymph % (Auto) [place] % (Auto) Lymph # [place] # Baso # Seg Neutrophils % Seg Neuts % (Manual) Lymphocytes % (Manual) Monocytes % (Manual) Eosinophils % (Manual) Basophils % (Manual) Nucleated RBC % Seg Neutrophils # Seg Neutrophils # Man Lymphocytes # (Manual) Monocytes # (Manual) Eosinophils # (Manual) Basophils # (Manual) PT INR Fibrinogen dRVVT Confirm Interp Factor V Activity POC ABG pH POC ABG pCO2 POC ABG pO2 ABG pO2 ABG HCO3 ABG Base Excess ABG Hemoglobin Oxyhemoglobin Sodium Potassium Chloride Carbon Dioxide BUN Creatinine Glucose POC Glucose 125 H Lactic Acid Calcium Ionized Calcium Phosphorus Magnesium Direct Bilirubin AST ALT Alkaline Phosphatase Lactate Dehydrogenase Troponin T C-Reactive Protein Total Protein Albumin Prealbumin Triglycerides Cholesterol LDL Cholesterol Direct HDL Cholesterol 25-OH Vitamin D Total PTH Intact Urine pH Urine WBC (Auto) Urine Creatinine Urine Total Protein Fluid Total Protein Vancomycin Trough Rheumatoid Factor Complement C4 Miscellaneous Test Crossmatch See Detail 10/25/16 10/25/16 10/25/16 04:00 04:00 04:00 WBC 14.2 H RBC 2.98 L Hgb 9.0 L Hct 26.2 L MCV MCH MCHC RDW 16.6 H Plt Count Lymph % (Auto) [place] % (Auto) 10.7 H Lymph # [place] # 1.5 H Baso # Seg Neutrophils % 73.6 H Seg Neuts % (Manual) Lymphocytes % (Manual) Monocytes % (Manual) Eosinophils % (Manual) Basophils % (Manual) Nucleated RBC % Seg Neutrophils # 10.5 H Seg Neutrophils # Man Lymphocytes # (Manual) Monocytes # (Manual) Eosinophils # (Manual) Basophils # (Manual) PT INR Fibrinogen dRVVT Confirm Interp Factor V Activity POC ABG pH POC ABG pCO2 POC ABG pO2 ABG pO2 ABG HCO3 ABG Base Excess ABG Hemoglobin Oxyhemoglobin Sodium 132 L Potassium Chloride 94.7 L Carbon Dioxide BUN 51 H Creatinine 1.6 H Glucose 130 H POC Glucose Lactic Acid Calcium 8.3 L Ionized Calcium Phosphorus 1.60 L D Magnesium Direct Bilirubin AST ALT Alkaline Phosphatase Lactate Dehydrogenase Troponin T C-Reactive Protein Total Protein Albumin Prealbumin Triglycerides Cholesterol LDL Cholesterol Direct HDL Cholesterol 25-OH Vitamin D Total PTH Intact Urine pH Urine WBC (Auto) Urine Creatinine Urine Total Protein Fluid Total Protein Vancomycin Trough Rheumatoid Factor Complement C4 Miscellaneous Test Crossmatch 10/25/16 10/25/16 10/25/16 04:32 11:48 17:22 WBC RBC Hgb Hct MCV MCH MCHC RDW Plt Count Lymph % (Auto) [place] % (Auto) Lymph # [place] # Baso # Seg Neutrophils % Seg Neuts % (Manual) Lymphocytes % (Manual) Monocytes % (Manual) Eosinophils % (Manual) Basophils % (Manual) Nucleated RBC % Seg Neutrophils # Seg Neutrophils # Man Lymphocytes # (Manual) Monocytes # (Manual) Eosinophils # (Manual) Basophils # (Manual) PT INR Fibrinogen dRVVT Confirm Interp Factor V Activity POC ABG pH POC ABG pCO2 POC ABG pO2 ABG pO2 ABG HCO3 ABG Base Excess ABG Hemoglobin Oxyhemoglobin Sodium Potassium Chloride Carbon Dioxide BUN Creatinine Glucose POC Glucose 124 H 171 H 120 H Lactic Acid Calcium Ionized Calcium Phosphorus Magnesium Direct Bilirubin AST ALT Alkaline Phosphatase Lactate Dehydrogenase Troponin T C-Reactive Protein Total Protein Albumin Prealbumin Triglycerides Cholesterol LDL Cholesterol Direct HDL Cholesterol 25-OH Vitamin D Total PTH Intact Urine pH Urine WBC (Auto) Urine Creatinine Urine Total Protein Fluid Total Protein Vancomycin Trough Rheumatoid Factor Complement C4 Miscellaneous Test Crossmatch 10/26/16 10/26/16 10/26/16 04:54 07:06 07:06 WBC 16.9 H RBC 3.06 L Hgb 9.1 L Hct 26.9 L MCV MCH MCHC RDW 16.9 H Plt Count Lymph % (Auto) [place] % (Auto) Lymph # [place] # Baso # Seg Neutrophils % Seg Neuts % (Manual) 71.0 H Lymphocytes % (Manual) 5.0 L Monocytes % (Manual) 12.0 H Eosinophils % (Manual) Basophils % (Manual) Nucleated RBC % Seg Neutrophils # Seg Neutrophils # Man 12.0 H Lymphocytes # (Manual) 0.8 L Monocytes # (Manual) 2.0 H Eosinophils # (Manual) Basophils # (Manual) PT INR Fibrinogen dRVVT Confirm Interp Factor V Activity POC ABG pH POC ABG pCO2 POC ABG pO2 ABG pO2 ABG HCO3 ABG Base Excess ABG Hemoglobin Oxyhemoglobin Sodium 135 L Potassium Chloride 97.1 L Carbon Dioxide BUN 73 H Creatinine 2.2 H Glucose 117 H POC Glucose 123 H Lactic Acid Calcium Ionized Calcium Phosphorus 1.70 L Magnesium Direct Bilirubin AST ALT Alkaline Phosphatase Lactate Dehydrogenase Troponin T C-Reactive Protein Total Protein Albumin Prealbumin Triglycerides Cholesterol LDL Cholesterol Direct HDL Cholesterol 25-OH Vitamin D Total PTH Intact Urine pH Urine WBC (Auto) Urine Creatinine Urine Total Protein Fluid Total Protein Vancomycin Trough Rheumatoid Factor Complement C4 Miscellaneous Test Crossmatch 10/26/16 10/26/16 10/26/16 12:12 17:29 23:42 WBC RBC Hgb Hct MCV MCH MCHC RDW Plt Count Lymph % (Auto) [place] % (Auto) Lymph # [place] # Baso # Seg Neutrophils % Seg Neuts % (Manual) Lymphocytes % (Manual) Monocytes % (Manual) Eosinophils % (Manual) Basophils % (Manual) Nucleated RBC % Seg Neutrophils # Seg Neutrophils # Man Lymphocytes # (Manual) Monocytes # (Manual) Eosinophils # (Manual) Basophils # (Manual) PT INR Fibrinogen dRVVT Confirm Interp Factor V Activity POC ABG pH POC ABG pCO2 POC ABG pO2 ABG pO2 ABG HCO3 ABG Base Excess ABG Hemoglobin Oxyhemoglobin Sodium Potassium Chloride Carbon Dioxide BUN Creatinine Glucose POC Glucose 126 H 161 H 118 H Lactic Acid Calcium Ionized Calcium Phosphorus Magnesium Direct Bilirubin AST ALT Alkaline Phosphatase Lactate Dehydrogenase Troponin T C-Reactive Protein Total Protein Albumin Prealbumin Triglycerides Cholesterol LDL Cholesterol Direct HDL Cholesterol 25-OH Vitamin D Total PTH Intact Urine pH Urine WBC (Auto) Urine Creatinine Urine Total Protein Fluid Total Protein Vancomycin Trough Rheumatoid Factor Complement C4 Miscellaneous Test Crossmatch 10/27/16 10/27/16 10/27/16 05:03 06:30 06:30 WBC 13.9 H RBC 3.09 L Hgb 9.2 L Hct 27.5 L MCV MCH MCHC RDW 17.0 H Plt Count Lymph % (Auto) [place] % (Auto) Lymph # [place] # Baso # Seg Neutrophils % Seg Neuts % (Manual) 78.0 H Lymphocytes % (Manual) Monocytes % (Manual) Eosinophils % (Manual) Basophils % (Manual) Nucleated RBC % 2.0 H Seg Neutrophils # Seg Neutrophils # Man 10.8 H Lymphocytes # (Manual) Monocytes # (Manual) 1.0 H Eosinophils # (Manual) Basophils # (Manual) PT INR Fibrinogen dRVVT Confirm Interp Factor V Activity POC ABG pH POC ABG pCO2 POC ABG pO2 ABG pO2 ABG HCO3 ABG Base Excess ABG Hemoglobin Oxyhemoglobin Sodium Potassium Chloride Carbon Dioxide BUN 40 H Creatinine 1.5 H Glucose 135 H POC Glucose 107 H Lactic Acid Calcium 8.3 L Ionized Calcium Phosphorus 1.30 L D Magnesium Direct Bilirubin AST ALT Alkaline Phosphatase Lactate Dehydrogenase Troponin T C-Reactive Protein Total Protein Albumin Prealbumin Triglycerides Cholesterol LDL Cholesterol Direct HDL Cholesterol 25-OH Vitamin D Total PTH Intact Urine pH Urine WBC (Auto) Urine Creatinine Urine Total Protein Fluid Total Protein Vancomycin Trough Rheumatoid Factor Complement C4 Miscellaneous Test Crossmatch 10/27/16 10/27/16 10/27/16 13:27 18:07 23:40 WBC RBC Hgb Hct MCV MCH MCHC RDW Plt Count Lymph % (Auto) [place] % (Auto) Lymph # [place] # Baso # Seg Neutrophils % Seg Neuts % (Manual) Lymphocytes % (Manual) Monocytes % (Manual) Eosinophils % (Manual) Basophils % (Manual) Nucleated RBC % Seg Neutrophils # Seg Neutrophils # Man Lymphocytes # (Manual) Monocytes # (Manual) Eosinophils # (Manual) Basophils # (Manual) PT INR Fibrinogen dRVVT Confirm Interp Factor V Activity POC ABG pH POC ABG pCO2 POC ABG pO2 ABG pO2 ABG HCO3 ABG Base Excess ABG Hemoglobin Oxyhemoglobin Sodium Potassium Chloride Carbon Dioxide BUN Creatinine Glucose POC Glucose 117 H 121 H 118 H Lactic Acid Calcium Ionized Calcium Phosphorus Magnesium Direct Bilirubin AST ALT Alkaline Phosphatase Lactate Dehydrogenase Troponin T C-Reactive Protein Total Protein Albumin Prealbumin Triglycerides Cholesterol LDL Cholesterol Direct HDL Cholesterol 25-OH Vitamin D Total PTH Intact Urine pH Urine WBC (Auto) Urine Creatinine Urine Total Protein Fluid Total Protein Vancomycin Trough Rheumatoid Factor Complement C4 Miscellaneous Test Crossmatch 10/28/16 10/28/16 10/28/16 05:48 06:45 06:45 WBC 14.7 H RBC 3.05 L Hgb 9.0 L Hct 26.9 L MCV MCH MCHC RDW 16.8 H Plt Count Lymph % (Auto) 8.2 L [place] % (Auto) 8.4 H Lymph # [place] # 1.2 H Baso # Seg Neutrophils % 81.9 H Seg Neuts % (Manual) Lymphocytes % (Manual) Monocytes % (Manual) Eosinophils % (Manual) Basophils % (Manual) Nucleated RBC % Seg Neutrophils # 12.1 H Seg Neutrophils # Man Lymphocytes # (Manual) Monocytes # (Manual) Eosinophils # (Manual) Basophils # (Manual) PT INR Fibrinogen dRVVT Confirm Interp Factor V Activity POC ABG pH POC ABG pCO2 POC ABG pO2 ABG pO2 ABG HCO3 ABG Base Excess ABG Hemoglobin Oxyhemoglobin Sodium Potassium Chloride Carbon Dioxide BUN 60 H Creatinine 1.9 H Glucose 120 H POC Glucose 114 H Lactic Acid Calcium Ionized Calcium Phosphorus Magnesium Direct Bilirubin AST ALT Alkaline Phosphatase Lactate Dehydrogenase Troponin T C-Reactive Protein Total Protein Albumin Prealbumin Triglycerides Cholesterol LDL Cholesterol Direct HDL Cholesterol 25-OH Vitamin D Total PTH Intact Urine pH Urine WBC (Auto) Urine Creatinine Urine Total Protein Fluid Total Protein Vancomycin Trough Rheumatoid Factor Complement C4 Miscellaneous Test Crossmatch 10/28/16 10/28/16 10/29/16 17:08 23:50 05:10 WBC RBC Hgb Hct MCV MCH MCHC RDW Plt Count Lymph % (Auto) [place] % (Auto) Lymph # [place] # Baso # Seg Neutrophils % Seg Neuts % (Manual) Lymphocytes % (Manual) Monocytes % (Manual) Eosinophils % (Manual) Basophils % (Manual) Nucleated RBC % Seg Neutrophils # Seg Neutrophils # Man Lymphocytes # (Manual) Monocytes # (Manual) Eosinophils # (Manual) Basophils # (Manual) PT INR Fibrinogen dRVVT Confirm Interp Factor V Activity POC ABG pH POC ABG pCO2 POC ABG pO2 ABG pO2 ABG HCO3 ABG Base Excess ABG Hemoglobin Oxyhemoglobin Sodium Potassium Chloride Carbon Dioxide BUN Creatinine Glucose POC Glucose 109 H 110 H 124 H Lactic Acid Calcium Ionized Calcium Phosphorus Magnesium Direct Bilirubin AST ALT Alkaline Phosphatase Lactate Dehydrogenase Troponin T C-Reactive Protein Total Protein Albumin Prealbumin Triglycerides Cholesterol LDL Cholesterol Direct HDL Cholesterol 25-OH Vitamin D Total PTH Intact Urine pH Urine WBC (Auto) Urine Creatinine Urine Total Protein Fluid Total Protein Vancomycin Trough Rheumatoid Factor Complement C4 Miscellaneous Test Crossmatch 10/29/16 10/29/16 10/29/16 07:45 07:45 12:19 WBC 14.7 H RBC 3.15 L Hgb 9.3 L Hct 28.9 L MCV MCH MCHC RDW 17.0 H Plt Count Lymph % (Auto) 11.9 L [place] % (Auto) 8.6 H Lymph # [place] # 1.3 H Baso # Seg Neutrophils % 78.1 H Seg Neuts % (Manual) Lymphocytes % (Manual) Monocytes % (Manual) Eosinophils % (Manual) Basophils % (Manual) Nucleated RBC % Seg Neutrophils # 11.4 H Seg Neutrophils # Man Lymphocytes # (Manual) Monocytes # (Manual) Eosinophils # (Manual) Basophils # (Manual) PT INR Fibrinogen dRVVT Confirm Interp Factor V Activity POC ABG pH POC ABG pCO2 POC ABG pO2 ABG pO2 ABG HCO3 ABG Base Excess ABG Hemoglobin Oxyhemoglobin Sodium Potassium 5.1 H Chloride Carbon Dioxide 19 L BUN 78 H Creatinine 2.2 H Glucose 116 H POC Glucose 118 H Lactic Acid Calcium Ionized Calcium Phosphorus Magnesium Direct Bilirubin AST ALT Alkaline Phosphatase Lactate Dehydrogenase Troponin T C-Reactive Protein Total Protein Albumin Prealbumin Triglycerides Cholesterol LDL Cholesterol Direct HDL Cholesterol 25-OH Vitamin D Total PTH Intact Urine pH Urine WBC (Auto) Urine Creatinine Urine Total Protein Fluid Total Protein Vancomycin Trough Rheumatoid Factor Complement C4 Miscellaneous Test Crossmatch 10/29/16 10/30/16 10/30/16 17:49 01:52 03:28 WBC RBC Hgb Hct MCV MCH MCHC RDW Plt Count Lymph % (Auto) [place] % (Auto) Lymph # [place] # Baso # Seg Neutrophils % Seg Neuts % (Manual) Lymphocytes % (Manual) Monocytes % (Manual) Eosinophils % (Manual) Basophils % (Manual) Nucleated RBC % Seg Neutrophils # Seg Neutrophils # Man Lymphocytes # (Manual) Monocytes # (Manual) Eosinophils # (Manual) Basophils # (Manual) PT INR Fibrinogen dRVVT Confirm Interp Factor V Activity POC ABG pH POC ABG pCO2 POC ABG pO2 ABG pO2 ABG HCO3 ABG Base Excess ABG Hemoglobin Oxyhemoglobin Sodium Potassium 5.4 H Chloride 97.5 L Carbon Dioxide 19 L BUN 90 H Creatinine 2.5 H Glucose POC Glucose 120 H 129 H Lactic Acid Calcium Ionized Calcium Phosphorus 5.20 H Magnesium Direct Bilirubin AST ALT Alkaline Phosphatase Lactate Dehydrogenase Troponin T C-Reactive Protein Total Protein Albumin Prealbumin Triglycerides Cholesterol LDL Cholesterol Direct HDL Cholesterol 25-OH Vitamin D Total PTH Intact Urine pH Urine WBC (Auto) Urine Creatinine Urine Total Protein Fluid Total Protein Vancomycin Trough Rheumatoid Factor Complement C4 Miscellaneous Test Crossmatch 10/30/16 10/30/16 10/30/16 03:28 08:19 08:19 WBC 11.6 H 15.9 H RBC 2.75 L 2.82 L Hgb 7.9 L 8.3 L Hct 24.2 L 25.2 L MCV MCH MCHC RDW 16.7 H 17.2 H Plt Count Lymph % (Auto) [place] % (Auto) 9.8 H Lymph # [place] # 1.1 H Baso # Seg Neutrophils % 74.2 H Seg Neuts % (Manual) Lymphocytes % (Manual) Monocytes % (Manual) Eosinophils % (Manual) Basophils % (Manual) Nucleated RBC % Seg Neutrophils # 8.6 H Seg Neutrophils # Man Lymphocytes # (Manual) Monocytes # (Manual) Eosinophils # (Manual) Basophils # (Manual) PT INR Fibrinogen dRVVT Confirm Interp Factor V Activity POC ABG pH POC ABG pCO2 POC ABG pO2 ABG pO2 ABG HCO3 ABG Base Excess ABG Hemoglobin Oxyhemoglobin Sodium Potassium 5.3 H Chloride 97.4 L Carbon Dioxide 19 L BUN 93 H Creatinine 2.6 H Glucose POC Glucose Lactic Acid Calcium Ionized Calcium Phosphorus Magnesium Direct Bilirubin AST ALT Alkaline Phosphatase Lactate Dehydrogenase Troponin T C-Reactive Protein Total Protein Albumin Prealbumin Triglycerides Cholesterol LDL Cholesterol Direct HDL Cholesterol 25-OH Vitamin D Total PTH Intact Urine pH Urine WBC (Auto) Urine Creatinine Urine Total Protein Fluid Total Protein Vancomycin Trough Rheumatoid Factor Complement C4 Miscellaneous Test Crossmatch 10/30/16 10/30/16 10/31/16 17:11 23:56 00:40 WBC RBC Hgb Hct MCV MCH MCHC RDW Plt Count Lymph % (Auto) [place] % (Auto) Lymph # [place] # Baso # Seg Neutrophils % Seg Neuts % (Manual) Lymphocytes % (Manual) Monocytes % (Manual) Eosinophils % (Manual) Basophils % (Manual) Nucleated RBC % Seg Neutrophils # Seg Neutrophils # Man Lymphocytes # (Manual) Monocytes # (Manual) Eosinophils # (Manual) Basophils # (Manual) PT INR Fibrinogen dRVVT Confirm Interp Factor V Activity POC ABG pH POC ABG pCO2 POC ABG pO2 ABG pO2 ABG HCO3 ABG Base Excess ABG Hemoglobin Oxyhemoglobin Sodium Potassium Chloride Carbon Dioxide BUN Creatinine Glucose POC Glucose 106 H 117 H 120 H Lactic Acid Calcium Ionized Calcium Phosphorus Magnesium Direct Bilirubin AST ALT Alkaline Phosphatase Lactate Dehydrogenase Troponin T C-Reactive Protein Total Protein Albumin Prealbumin Triglycerides Cholesterol LDL Cholesterol Direct HDL Cholesterol 25-OH Vitamin D Total PTH Intact Urine pH Urine WBC (Auto) Urine Creatinine Urine Total Protein Fluid Total Protein Vancomycin Trough Rheumatoid Factor Complement C4 Miscellaneous Test Crossmatch 10/31/16 10/31/16 10/31/16 05:43 07:15 07:15 WBC 12.1 H RBC 2.63 L Hgb 7.7 L Hct 23.3 L MCV MCH MCHC RDW 16.7 H Plt Count Lymph % (Auto) 11.7 L [place] % (Auto) 7.7 H Lymph # [place] # 0.9 H Baso # Seg Neutrophils % 78.0 H Seg Neuts % (Manual) Lymphocytes % (Manual) Monocytes % (Manual) Eosinophils % (Manual) Basophils % (Manual) Nucleated RBC % Seg Neutrophils # 9.4 H Seg Neutrophils # Man Lymphocytes # (Manual) Monocytes # (Manual) Eosinophils # (Manual) Basophils # (Manual) PT INR Fibrinogen dRVVT Confirm Interp Factor V Activity POC ABG pH POC ABG pCO2 POC ABG pO2 ABG pO2 ABG HCO3 ABG Base Excess ABG Hemoglobin Oxyhemoglobin Sodium Potassium Chloride 96.4 L Carbon Dioxide 21 L BUN 99 H Creatinine 2.6 H Glucose 144 H POC Glucose 125 H Lactic Acid Calcium Ionized Calcium Phosphorus 4.80 H Magnesium Direct Bilirubin AST ALT Alkaline Phosphatase Lactate Dehydrogenase Troponin T C-Reactive Protein Total Protein Albumin Prealbumin Triglycerides Cholesterol LDL Cholesterol Direct HDL Cholesterol 25-OH Vitamin D Total PTH Intact Urine pH Urine WBC (Auto) Urine Creatinine Urine Total Protein Fluid Total Protein Vancomycin Trough Rheumatoid Factor Complement C4 Miscellaneous Test Crossmatch 10/31/16 10/31/16 11/01/16 11:46 18:34 00:20 WBC RBC Hgb Hct MCV MCH MCHC RDW Plt Count Lymph % (Auto) [place] % (Auto) Lymph # [place] # Baso # Seg Neutrophils % Seg Neuts % (Manual) Lymphocytes % (Manual) Monocytes % (Manual) Eosinophils % (Manual) Basophils % (Manual) Nucleated RBC % Seg Neutrophils # Seg Neutrophils # Man Lymphocytes # (Manual) Monocytes # (Manual) Eosinophils # (Manual) Basophils # (Manual) PT INR Fibrinogen dRVVT Confirm Interp Factor V Activity POC ABG pH POC ABG pCO2 POC ABG pO2 ABG pO2 ABG HCO3 ABG Base Excess ABG Hemoglobin Oxyhemoglobin Sodium Potassium Chloride Carbon Dioxide BUN Creatinine Glucose POC Glucose 159 H 140 H 132 H Lactic Acid Calcium Ionized Calcium Phosphorus Magnesium Direct Bilirubin AST ALT Alkaline Phosphatase Lactate Dehydrogenase Troponin T C-Reactive Protein Total Protein Albumin Prealbumin Triglycerides Cholesterol LDL Cholesterol Direct HDL Cholesterol 25-OH Vitamin D Total PTH Intact Urine pH Urine WBC (Auto) Urine Creatinine Urine Total Protein Fluid Total Protein Vancomycin Trough Rheumatoid Factor Complement C4 Miscellaneous Test Crossmatch 11/01/16 11/01/16 11/01/16 04:55 04:55 06:11 WBC 11.2 H RBC 2.68 L Hgb 7.5 L Hct 23.7 L MCV MCH MCHC RDW 16.1 H Plt Count Lymph % (Auto) [place] % (Auto) 9.8 H Lymph # [place] # 1.1 H Baso # Seg Neutrophils % 70.8 H Seg Neuts % (Manual) Lymphocytes % (Manual) Monocytes % (Manual) Eosinophils % (Manual) Basophils % (Manual) Nucleated RBC % Seg Neutrophils # 7.9 H Seg Neutrophils # Man Lymphocytes # (Manual) Monocytes # (Manual) Eosinophils # (Manual) Basophils # (Manual) PT INR Fibrinogen dRVVT Confirm Interp Factor V Activity POC ABG pH POC ABG pCO2 POC ABG pO2 ABG pO2 ABG HCO3 ABG Base Excess ABG Hemoglobin Oxyhemoglobin Sodium Potassium 3.3 L D Chloride Carbon Dioxide BUN 61 H Creatinine 1.9 H Glucose 114 H POC Glucose 115 H Lactic Acid Calcium Ionized Calcium Phosphorus 1.80 L D Magnesium Direct Bilirubin AST ALT Alkaline Phosphatase Lactate Dehydrogenase Troponin T C-Reactive Protein Total Protein Albumin Prealbumin Triglycerides Cholesterol LDL Cholesterol Direct HDL Cholesterol 25-OH Vitamin D Total PTH Intact Urine pH Urine WBC (Auto) Urine Creatinine Urine Total Protein Fluid Total Protein Vancomycin Trough Rheumatoid Factor Complement C4 Miscellaneous Test Crossmatch 11/01/16 11/01/16 11/01/16 12:29 18:23 23:58 WBC RBC Hgb Hct MCV MCH MCHC RDW Plt Count Lymph % (Auto) [place] % (Auto) Lymph # [place] # Baso # Seg Neutrophils % Seg Neuts % (Manual) Lymphocytes % (Manual) Monocytes % (Manual) Eosinophils % (Manual) Basophils % (Manual) Nucleated RBC % Seg Neutrophils # Seg Neutrophils # Man Lymphocytes # (Manual) Monocytes # (Manual) Eosinophils # (Manual) Basophils # (Manual) PT INR Fibrinogen dRVVT Confirm Interp Factor V Activity POC ABG pH POC ABG pCO2 POC ABG pO2 ABG pO2 ABG HCO3 ABG Base Excess ABG Hemoglobin Oxyhemoglobin Sodium Potassium Chloride Carbon Dioxide BUN Creatinine Glucose POC Glucose 142 H 143 H 128 H Lactic Acid Calcium Ionized Calcium Phosphorus Magnesium Direct Bilirubin AST ALT Alkaline Phosphatase Lactate Dehydrogenase Troponin T C-Reactive Protein Total Protein Albumin Prealbumin Triglycerides Cholesterol LDL Cholesterol Direct HDL Cholesterol 25-OH Vitamin D Total PTH Intact Urine pH Urine WBC (Auto) Urine Creatinine Urine Total Protein Fluid Total Protein Vancomycin Trough Rheumatoid Factor Complement C4 Miscellaneous Test Crossmatch 11/02/16 11/02/16 11/02/16 04:16 05:29 11:58 WBC RBC Hgb Hct MCV MCH MCHC RDW Plt Count Lymph % (Auto) [place] % (Auto) Lymph # [place] # Baso # Seg Neutrophils % Seg Neuts % (Manual) Lymphocytes % (Manual) Monocytes % (Manual) Eosinophils % (Manual) Basophils % (Manual) Nucleated RBC % Seg Neutrophils # Seg Neutrophils # Man Lymphocytes # (Manual) Monocytes # (Manual) Eosinophils # (Manual) Basophils # (Manual) PT INR Fibrinogen dRVVT Confirm Interp Factor V Activity POC ABG pH POC ABG pCO2 POC ABG pO2 ABG pO2 ABG HCO3 ABG Base Excess ABG Hemoglobin Oxyhemoglobin Sodium Potassium 3.1 L Chloride Carbon Dioxide BUN 73 H Creatinine 2.3 H Glucose 112 H POC Glucose 135 H 149 H Lactic Acid Calcium Ionized Calcium Phosphorus Magnesium Direct Bilirubin AST ALT Alkaline Phosphatase Lactate Dehydrogenase Troponin T C-Reactive Protein Total Protein Albumin Prealbumin Triglycerides Cholesterol LDL Cholesterol Direct HDL Cholesterol 25-OH Vitamin D Total PTH Intact Urine pH Urine WBC (Auto) Urine Creatinine Urine Total Protein Fluid Total Protein Vancomycin Trough Rheumatoid Factor Complement C4 Miscellaneous Test Crossmatch 11/02/16 11/02/16 11/03/16 17:42 22:54 06:00 WBC RBC Hgb Hct MCV MCH MCHC RDW Plt Count Lymph % (Auto) [place] % (Auto) Lymph # [place] # Baso # Seg Neutrophils % Seg Neuts % (Manual) Lymphocytes % (Manual) Monocytes % (Manual) Eosinophils % (Manual) Basophils % (Manual) Nucleated RBC % Seg Neutrophils # Seg Neutrophils # Man Lymphocytes # (Manual) Monocytes # (Manual) Eosinophils # (Manual) Basophils # (Manual) PT INR Fibrinogen dRVVT Confirm Interp Factor V Activity POC ABG pH POC ABG pCO2 POC ABG pO2 ABG pO2 ABG HCO3 ABG Base Excess ABG Hemoglobin Oxyhemoglobin Sodium Potassium Chloride 96.7 L Carbon Dioxide BUN 41 H Creatinine 1.5 H Glucose 145 H POC Glucose 182 H 115 H Lactic Acid Calcium Ionized Calcium Phosphorus 1.60 L D Magnesium 1.50 L Direct Bilirubin AST ALT Alkaline Phosphatase Lactate Dehydrogenase Troponin T C-Reactive Protein Total Protein Albumin Prealbumin Triglycerides Cholesterol LDL Cholesterol Direct HDL Cholesterol 25-OH Vitamin D Total PTH Intact Urine pH Urine WBC (Auto) Urine Creatinine Urine Total Protein Fluid Total Protein Vancomycin Trough Rheumatoid Factor Complement C4 Miscellaneous Test Crossmatch 11/03/16 11/03/16 11/03/16 11:53 17:45 23:37 WBC RBC Hgb Hct MCV MCH MCHC RDW Plt Count Lymph % (Auto) [place] % (Auto) Lymph # [place] # Baso # Seg Neutrophils % Seg Neuts % (Manual) Lymphocytes % (Manual) Monocytes % (Manual) Eosinophils % (Manual) Basophils % (Manual) Nucleated RBC % Seg Neutrophils # Seg Neutrophils # Man Lymphocytes # (Manual) Monocytes # (Manual) Eosinophils # (Manual) Basophils # (Manual) PT INR Fibrinogen dRVVT Confirm Interp Factor V Activity POC ABG pH POC ABG pCO2 POC ABG pO2 ABG pO2 ABG HCO3 ABG Base Excess ABG Hemoglobin Oxyhemoglobin Sodium Potassium Chloride Carbon Dioxide BUN Creatinine Glucose POC Glucose 131 H 134 H 113 H Lactic Acid Calcium Ionized Calcium Phosphorus Magnesium Direct Bilirubin AST ALT Alkaline Phosphatase Lactate Dehydrogenase Troponin T C-Reactive Protein Total Protein Albumin Prealbumin Triglycerides Cholesterol LDL Cholesterol Direct HDL Cholesterol 25-OH Vitamin D Total PTH Intact Urine pH Urine WBC (Auto) Urine Creatinine Urine Total Protein Fluid Total Protein Vancomycin Trough Rheumatoid Factor Complement C4 Miscellaneous Test Crossmatch 11/04/16 11/04/16 11/04/16 05:41 06:00 12:10 WBC RBC Hgb Hct MCV MCH MCHC RDW Plt Count Lymph % (Auto) [place] % (Auto) Lymph # [place] # Baso # Seg Neutrophils % Seg Neuts % (Manual) Lymphocytes % (Manual) Monocytes % (Manual) Eosinophils % (Manual) Basophils % (Manual) Nucleated RBC % Seg Neutrophils # Seg Neutrophils # Man Lymphocytes # (Manual) Monocytes # (Manual) Eosinophils # (Manual) Basophils # (Manual) PT INR Fibrinogen dRVVT Confirm Interp Factor V Activity POC ABG pH POC ABG pCO2 POC ABG pO2 ABG pO2 ABG HCO3 ABG Base Excess ABG Hemoglobin Oxyhemoglobin Sodium Potassium Chloride 96.7 L Carbon Dioxide BUN 52 H Creatinine 1.9 H Glucose 126 H POC Glucose 137 H 191 H Lactic Acid Calcium Ionized Calcium Phosphorus Magnesium Direct Bilirubin AST ALT Alkaline Phosphatase Lactate Dehydrogenase Troponin T C-Reactive Protein Total Protein Albumin Prealbumin Triglycerides Cholesterol LDL Cholesterol Direct HDL Cholesterol 25-OH Vitamin D Total PTH Intact Urine pH Urine WBC (Auto) Urine Creatinine Urine Total Protein Fluid Total Protein Vancomycin Trough Rheumatoid Factor Complement C4 Miscellaneous Test Crossmatch 11/04/16 11/05/16 11/05/16 22:57 03:10 05:10 WBC RBC Hgb Hct MCV MCH MCHC RDW Plt Count Lymph % (Auto) [place] % (Auto) Lymph # [place] # Baso # Seg Neutrophils % Seg Neuts % (Manual) Lymphocytes % (Manual) Monocytes % (Manual) Eosinophils % (Manual) Basophils % (Manual) Nucleated RBC % Seg Neutrophils # Seg Neutrophils # Man Lymphocytes # (Manual) Monocytes # (Manual) Eosinophils # (Manual) Basophils # (Manual) PT INR Fibrinogen dRVVT Confirm Interp Factor V Activity POC ABG pH POC ABG pCO2 POC ABG pO2 ABG pO2 ABG HCO3 ABG Base Excess ABG Hemoglobin Oxyhemoglobin Sodium 136 L Potassium Chloride 97.2 L Carbon Dioxide BUN 32 H Creatinine 1.3 H Glucose 123 H POC Glucose 125 H 108 H Lactic Acid Calcium 7.8 L Ionized Calcium Phosphorus Magnesium Direct Bilirubin AST ALT Alkaline Phosphatase Lactate Dehydrogenase Troponin T C-Reactive Protein Total Protein Albumin Prealbumin Triglycerides Cholesterol LDL Cholesterol Direct HDL Cholesterol 25-OH Vitamin D Total PTH Intact Urine pH Urine WBC (Auto) Urine Creatinine Urine Total Protein Fluid Total Protein Vancomycin Trough Rheumatoid Factor Complement C4 Miscellaneous Test Crossmatch 11/05/16 11/05/16 11/05/16 12:23 13:09 13:25 WBC RBC Hgb Hct MCV MCH MCHC RDW Plt Count Lymph % (Auto) [place] % (Auto) Lymph # [place] # Baso # Seg Neutrophils % Seg Neuts % (Manual) Lymphocytes % (Manual) Monocytes % (Manual) Eosinophils % (Manual) Basophils % (Manual) Nucleated RBC % Seg Neutrophils # Seg Neutrophils # Man Lymphocytes # (Manual) Monocytes # (Manual) Eosinophils # (Manual) Basophils # (Manual) PT INR Fibrinogen dRVVT Confirm Interp Factor V Activity POC ABG pH POC ABG pCO2 POC ABG pO2 ABG pO2 ABG HCO3 ABG Base Excess ABG Hemoglobin Oxyhemoglobin Sodium Potassium Chloride Carbon Dioxide BUN Creatinine Glucose POC Glucose 124 H Lactic Acid Calcium Ionized Calcium Phosphorus Magnesium Direct Bilirubin AST ALT Alkaline Phosphatase Lactate Dehydrogenase Troponin T C-Reactive Protein 11.40 H Total Protein Albumin Prealbumin Triglycerides Cholesterol LDL Cholesterol Direct HDL Cholesterol 25-OH Vitamin D Total PTH Intact Urine pH 9.0 H Urine WBC (Auto) Urine Creatinine Urine Total Protein Fluid Total Protein Vancomycin Trough Rheumatoid Factor Complement C4 Miscellaneous Test Crossmatch 11/05/16 11/05/16 11/05/16 13:25 17:54 23:42 WBC RBC Hgb Hct MCV MCH MCHC RDW Plt Count Lymph % (Auto) [place] % (Auto) Lymph # [place] # Baso # Seg Neutrophils % Seg Neuts % (Manual) Lymphocytes % (Manual) Monocytes % (Manual) Eosinophils % (Manual) Basophils % (Manual) Nucleated RBC % Seg Neutrophils # Seg Neutrophils # Man Lymphocytes # (Manual) Monocytes # (Manual) Eosinophils # (Manual) Basophils # (Manual) PT INR Fibrinogen dRVVT Confirm Interp Factor V Activity POC ABG pH POC ABG pCO2 POC ABG pO2 ABG pO2 ABG HCO3 ABG Base Excess ABG Hemoglobin Oxyhemoglobin Sodium Potassium Chloride Carbon Dioxide BUN Creatinine Glucose POC Glucose 114 H 134 H Lactic Acid Calcium Ionized Calcium Phosphorus Magnesium Direct Bilirubin AST ALT Alkaline Phosphatase Lactate Dehydrogenase Troponin T C-Reactive Protein Total Protein Albumin Prealbumin Triglycerides Cholesterol LDL Cholesterol Direct HDL Cholesterol 25-OH Vitamin D Total PTH Intact Urine pH Urine WBC (Auto) Urine Creatinine Urine Total Protein Fluid Total Protein Vancomycin Trough Rheumatoid Factor Complement C4 Miscellaneous Test Flexitest 1 H Crossmatch 11/06/16 11/06/16 11/06/16 04:56 06:25 06:25 WBC RBC 2.50 L Hgb 7.3 L Hct 22.5 L MCV MCH MCHC RDW 16.9 H Plt Count Lymph % (Auto) [place] % (Auto) 10.5 H Lymph # [place] # 1.1 H Baso # Seg Neutrophils % Seg Neuts % (Manual) Lymphocytes % (Manual) Monocytes % (Manual) Eosinophils % (Manual) Basophils % (Manual) Nucleated RBC % Seg Neutrophils # Seg Neutrophils # Man Lymphocytes # (Manual) Monocytes # (Manual) Eosinophils # (Manual) Basophils # (Manual) PT INR Fibrinogen dRVVT Confirm Interp Factor V Activity POC ABG pH POC ABG pCO2 POC ABG pO2 ABG pO2 ABG HCO3 ABG Base Excess ABG Hemoglobin Oxyhemoglobin Sodium Potassium 5.1 H Chloride 95.9 L Carbon Dioxide BUN 52 H Creatinine 1.8 H Glucose 117 H POC Glucose 120 H Lactic Acid Calcium Ionized Calcium Phosphorus Magnesium Direct Bilirubin AST 103 H ALT 77 H Alkaline Phosphatase 285 H Lactate Dehydrogenase Troponin T C-Reactive Protein Total Protein 6.2 L Albumin 1.8 L Prealbumin 0.180 L Triglycerides Cholesterol LDL Cholesterol Direct HDL Cholesterol 25-OH Vitamin D Total PTH Intact Urine pH Urine WBC (Auto) Urine Creatinine Urine Total Protein Fluid Total Protein Vancomycin Trough Rheumatoid Factor Complement C4 Miscellaneous Test Crossmatch 11/06/16 11/06/16 11/06/16 11:56 17:14 23:52 WBC RBC Hgb Hct MCV MCH MCHC RDW Plt Count Lymph % (Auto) [place] % (Auto) Lymph # [place] # Baso # Seg Neutrophils % Seg Neuts % (Manual) Lymphocytes % (Manual) Monocytes % (Manual) Eosinophils % (Manual) Basophils % (Manual) Nucleated RBC % Seg Neutrophils # Seg Neutrophils # Man Lymphocytes # (Manual) Monocytes # (Manual) Eosinophils # (Manual) Basophils # (Manual) PT INR Fibrinogen dRVVT Confirm Interp Factor V Activity POC ABG pH POC ABG pCO2 POC ABG pO2 ABG pO2 ABG HCO3 ABG Base Excess ABG Hemoglobin Oxyhemoglobin Sodium Potassium Chloride Carbon Dioxide BUN Creatinine Glucose POC Glucose 141 H 125 H 130 H Lactic Acid Calcium Ionized Calcium Phosphorus Magnesium Direct Bilirubin AST ALT Alkaline Phosphatase Lactate Dehydrogenase Troponin T C-Reactive Protein Total Protein Albumin Prealbumin Triglycerides Cholesterol LDL Cholesterol Direct HDL Cholesterol 25-OH Vitamin D Total PTH Intact Urine pH Urine WBC (Auto) Urine Creatinine Urine Total Protein Fluid Total Protein Vancomycin Trough Rheumatoid Factor Complement C4 Miscellaneous Test Crossmatch 09/18/17 09/18/17 09/18/17 06:30 06:30 09:37 WBC RBC 2.18 L Hgb 6.3 L Hct 19.7 L* MCV MCH MCHC RDW 16.8 H Plt Count Lymph % (Auto) [place] % (Auto) 10.0 H Lymph # [place] # 1.0 H Baso # Seg Neutrophils % Seg Neuts % (Manual) Lymphocytes % (Manual) Monocytes % (Manual) Eosinophils % (Manual) Basophils % (Manual) Nucleated RBC % Seg Neutrophils # Seg Neutrophils # Man Lymphocytes # (Manual) Monocytes # (Manual) Eosinophils # (Manual) Basophils # (Manual) PT INR Fibrinogen dRVVT Confirm Interp Factor V Activity POC ABG pH POC ABG pCO2 POC ABG pO2 ABG pO2 ABG HCO3 ABG Base Excess ABG Hemoglobin Oxyhemoglobin Sodium 135 L Potassium Chloride 95.6 L Carbon Dioxide BUN 70 H Creatinine 2.0 H Glucose 126 H POC Glucose Lactic Acid Calcium Ionized Calcium Phosphorus Magnesium Direct Bilirubin AST ALT Alkaline Phosphatase Lactate Dehydrogenase Troponin T C-Reactive Protein Total Protein Albumin Prealbumin Triglycerides Cholesterol LDL Cholesterol Direct HDL Cholesterol 25-OH Vitamin D Total PTH Intact Urine pH Urine WBC (Auto) Urine Creatinine Urine Total Protein Fluid Total Protein Vancomycin Trough Rheumatoid Factor Complement C4 Miscellaneous Test Crossmatch See Detail 11/07/16 11/07/16 11/07/16 12:52 18:51 21:26 WBC RBC Hgb Hct MCV MCH MCHC RDW Plt Count Lymph % (Auto) [place] % (Auto) Lymph # [place] # Baso # Seg Neutrophils % Seg Neuts % (Manual) Lymphocytes % (Manual) Monocytes % (Manual) Eosinophils % (Manual) Basophils % (Manual) Nucleated RBC % Seg Neutrophils # Seg Neutrophils # Man Lymphocytes # (Manual) Monocytes # (Manual) Eosinophils # (Manual) Basophils # (Manual) PT INR Fibrinogen dRVVT Confirm Interp Factor V Activity POC ABG pH 7.523 H POC ABG pCO2 34.6 L POC ABG pO2 53 L ABG pO2 ABG HCO3 ABG Base Excess ABG Hemoglobin Oxyhemoglobin Sodium Potassium Chloride Carbon Dioxide BUN Creatinine Glucose POC Glucose 142 H 155 H Lactic Acid Calcium Ionized Calcium Phosphorus Magnesium Direct Bilirubin AST ALT Alkaline Phosphatase Lactate Dehydrogenase Troponin T C-Reactive Protein Total Protein Albumin Prealbumin Triglycerides Cholesterol LDL Cholesterol Direct HDL Cholesterol 25-OH Vitamin D Total PTH Intact Urine pH Urine WBC (Auto) Urine Creatinine Urine Total Protein Fluid Total Protein Vancomycin Trough Rheumatoid Factor Complement C4 Miscellaneous Test Crossmatch 11/07/16 11/08/16 11/08/16 21:34 13:03 23:37 WBC RBC 2.63 L Hgb 7.7 L Hct 22.7 L MCV MCH MCHC RDW 17.0 H Plt Count Lymph % (Auto) [place] % (Auto) Lymph # [place] # Baso # Seg Neutrophils % Seg Neuts % (Manual) Lymphocytes % (Manual) Monocytes % (Manual) Eosinophils % (Manual) Basophils % (Manual) Nucleated RBC % Seg Neutrophils # Seg Neutrophils # Man Lymphocytes # (Manual) Monocytes # (Manual) Eosinophils # (Manual) Basophils # (Manual) PT INR Fibrinogen dRVVT Confirm Interp Factor V Activity POC ABG pH 7.478 H POC ABG pCO2 34.0 L POC ABG pO2 50 L ABG pO2 ABG HCO3 ABG Base Excess ABG Hemoglobin Oxyhemoglobin Sodium Potassium Chloride Carbon Dioxide BUN Creatinine Glucose POC Glucose 113 H Lactic Acid Calcium Ionized Calcium Phosphorus Magnesium Direct Bilirubin AST ALT Alkaline Phosphatase Lactate Dehydrogenase Troponin T C-Reactive Protein Total Protein Albumin Prealbumin Triglycerides Cholesterol LDL Cholesterol Direct HDL Cholesterol 25-OH Vitamin D Total PTH Intact Urine pH Urine WBC (Auto) Urine Creatinine Urine Total Protein Fluid Total Protein Vancomycin Trough Rheumatoid Factor Complement C4 Miscellaneous Test Crossmatch 11/09/16 11/09/16 11/09/16 04:35 10:15 18:21 WBC RBC 2.68 L Hgb 7.8 L Hct 23.3 L MCV MCH MCHC RDW 17.0 H Plt Count Lymph % (Auto) [place] % (Auto) 12.1 H Lymph # [place] # 1.1 H Baso # Seg Neutrophils % Seg Neuts % (Manual) Lymphocytes % (Manual) Monocytes % (Manual) Eosinophils % (Manual) Basophils % (Manual) Nucleated RBC % Seg Neutrophils # Seg Neutrophils # Man Lymphocytes # (Manual) Monocytes # (Manual) Eosinophils # (Manual) Basophils # (Manual) PT INR Fibrinogen dRVVT Confirm Interp Factor V Activity POC ABG pH POC ABG pCO2 POC ABG pO2 ABG pO2 ABG HCO3 ABG Base Excess ABG Hemoglobin Oxyhemoglobin Sodium Potassium Chloride Carbon Dioxide BUN 51 H Creatinine 1.8 H Glucose POC Glucose 60 L Lactic Acid Calcium 8.3 L Ionized Calcium Phosphorus Magnesium Direct Bilirubin AST ALT Alkaline Phosphatase Lactate Dehydrogenase Troponin T C-Reactive Protein Total Protein Albumin Prealbumin Triglycerides Cholesterol LDL Cholesterol Direct HDL Cholesterol 25-OH Vitamin D Total PTH Intact Urine pH Urine WBC (Auto) Urine Creatinine Urine Total Protein Fluid Total Protein Vancomycin Trough Rheumatoid Factor Complement C4 Miscellaneous Test Crossmatch 11/09/16 11/10/16 11/10/16 18:55 07:00 11:51 WBC RBC Hgb Hct MCV MCH MCHC RDW Plt Count Lymph % (Auto) [place] % (Auto) Lymph # [place] # Baso # Seg Neutrophils % Seg Neuts % (Manual) Lymphocytes % (Manual) Monocytes % (Manual) Eosinophils % (Manual) Basophils % (Manual) Nucleated RBC % Seg Neutrophils # Seg Neutrophils # Man Lymphocytes # (Manual) Monocytes # (Manual) Eosinophils # (Manual) Basophils # (Manual) PT INR Fibrinogen dRVVT Confirm Interp Factor V Activity POC ABG pH POC ABG pCO2 POC ABG pO2 ABG pO2 ABG HCO3 ABG Base Excess ABG Hemoglobin Oxyhemoglobin Sodium Potassium 3.0 L D Chloride 97.4 L Carbon Dioxide BUN 28 H Creatinine 1.3 H Glucose POC Glucose 68 L 120 H Lactic Acid Calcium 7.8 L Ionized Calcium Phosphorus Magnesium Direct Bilirubin AST ALT Alkaline Phosphatase Lactate Dehydrogenase Troponin T C-Reactive Protein Total Protein Albumin Prealbumin Triglycerides Cholesterol LDL Cholesterol Direct HDL Cholesterol 25-OH Vitamin D Total PTH Intact Urine pH Urine WBC (Auto) Urine Creatinine Urine Total Protein Fluid Total Protein Vancomycin Trough Rheumatoid Factor Complement C4 Miscellaneous Test Crossmatch 11/10/16 11/11/16 11/11/16 14:20 06:59 06:59 WBC RBC 2.81 L Hgb 8.1 L Hct 24.4 L MCV MCH MCHC RDW 16.4 H Plt Count Lymph % (Auto) [place] % (Auto) 10.8 H Lymph # [place] # 1.0 H Baso # Seg Neutrophils % Seg Neuts % (Manual) Lymphocytes % (Manual) Monocytes % (Manual) Eosinophils % (Manual) Basophils % (Manual) Nucleated RBC % Seg Neutrophils # Seg Neutrophils # Man Lymphocytes # (Manual) Monocytes # (Manual) Eosinophils # (Manual) Basophils # (Manual) PT INR Fibrinogen dRVVT Confirm Interp Factor V Activity POC ABG pH POC ABG pCO2 POC ABG pO2 ABG pO2 ABG HCO3 ABG Base Excess ABG Hemoglobin Oxyhemoglobin Sodium Potassium Chloride Carbon Dioxide BUN Creatinine Glucose POC Glucose Lactic Acid Calcium Ionized Calcium Phosphorus Magnesium Direct Bilirubin AST ALT Alkaline Phosphatase Lactate Dehydrogenase 196 H Troponin T C-Reactive Protein Total Protein 6.1 L Albumin Prealbumin Triglycerides Cholesterol LDL Cholesterol Direct HDL Cholesterol 25-OH Vitamin D Total PTH Intact Urine pH Urine WBC (Auto) Urine Creatinine Urine Total Protein Fluid Total Protein < 3.0 L Vancomycin Trough Rheumatoid Factor Complement C4 Miscellaneous Test Crossmatch 11/11/16 11/11/16 11/12/16 06:59 09:50 04:00 WBC RBC Hgb Hct MCV MCH MCHC RDW Plt Count Lymph % (Auto) [place] % (Auto) Lymph # [place] # Baso # Seg Neutrophils % Seg Neuts % (Manual) Lymphocytes % (Manual) Monocytes % (Manual) Eosinophils % (Manual) Basophils % (Manual) Nucleated RBC % Seg Neutrophils # Seg Neutrophils # Man Lymphocytes # (Manual) Monocytes # (Manual) Eosinophils # (Manual) Basophils # (Manual) PT INR 1.18 H Fibrinogen dRVVT Confirm Interp Factor V Activity POC ABG pH POC ABG pCO2 POC ABG pO2 ABG pO2 ABG HCO3 ABG Base Excess ABG Hemoglobin Oxyhemoglobin Sodium 136 L 133 L Potassium Chloride 96.1 L 94.8 L Carbon Dioxide 21 L BUN 37 H 42 H Creatinine 1.8 H 2.0 H Glucose POC Glucose Lactic Acid Calcium Ionized Calcium Phosphorus Magnesium Direct Bilirubin AST ALT Alkaline Phosphatase Lactate Dehydrogenase Troponin T C-Reactive Protein Total Protein Albumin Prealbumin Triglycerides Cholesterol LDL Cholesterol Direct HDL Cholesterol 25-OH Vitamin D Total PTH Intact Urine pH Urine WBC (Auto) Urine Creatinine Urine Total Protein Fluid Total Protein Vancomycin Trough Rheumatoid Factor Complement C4 Miscellaneous Test Crossmatch 11/12/16 11/12/16 11/13/16 04:00 23:55 05:53 WBC RBC Hgb 8.9 L Hct 27.2 L MCV MCH MCHC RDW Plt Count Lymph % (Auto) [place] % (Auto) Lymph # [place] # Baso # Seg Neutrophils % Seg Neuts % (Manual) Lymphocytes % (Manual) Monocytes % (Manual) Eosinophils % (Manual) Basophils % (Manual) Nucleated RBC % Seg Neutrophils # Seg Neutrophils # Man Lymphocytes # (Manual) Monocytes # (Manual) Eosinophils # (Manual) Basophils # (Manual) PT INR Fibrinogen dRVVT Confirm Interp Factor V Activity POC ABG pH POC ABG pCO2 POC ABG pO2 ABG pO2 ABG HCO3 ABG Base Excess ABG Hemoglobin Oxyhemoglobin Sodium Potassium Chloride Carbon Dioxide BUN Creatinine Glucose POC Glucose 132 H 120 H Lactic Acid Calcium Ionized Calcium Phosphorus Magnesium Direct Bilirubin AST ALT Alkaline Phosphatase Lactate Dehydrogenase Troponin T C-Reactive Protein Total Protein Albumin Prealbumin Triglycerides Cholesterol LDL Cholesterol Direct HDL Cholesterol 25-OH Vitamin D Total PTH Intact Urine pH Urine WBC (Auto) Urine Creatinine Urine Total Protein Fluid Total Protein Vancomycin Trough Rheumatoid Factor Complement C4 Miscellaneous Test Crossmatch 11/13/16 11/13/16 11/13/16 11:43 17:09 23:41 WBC RBC Hgb Hct MCV MCH MCHC RDW Plt Count Lymph % (Auto) [place] % (Auto) Lymph # [place] # Baso # Seg Neutrophils % Seg Neuts % (Manual) Lymphocytes % (Manual) Monocytes % (Manual) Eosinophils % (Manual) Basophils % (Manual) Nucleated RBC % Seg Neutrophils # Seg Neutrophils # Man Lymphocytes # (Manual) Monocytes # (Manual) Eosinophils # (Manual) Basophils # (Manual) PT INR Fibrinogen dRVVT Confirm Interp Factor V Activity POC ABG pH POC ABG pCO2 POC ABG pO2 ABG pO2 ABG HCO3 ABG Base Excess ABG Hemoglobin Oxyhemoglobin Sodium Potassium Chloride Carbon Dioxide BUN Creatinine Glucose POC Glucose 114 H 113 H 108 H Lactic Acid Calcium Ionized Calcium Phosphorus Magnesium Direct Bilirubin AST ALT Alkaline Phosphatase Lactate Dehydrogenase Troponin T C-Reactive Protein Total Protein Albumin Prealbumin Triglycerides Cholesterol LDL Cholesterol Direct HDL Cholesterol 25-OH Vitamin D Total PTH Intact Urine pH Urine WBC (Auto) Urine Creatinine Urine Total Protein Fluid Total Protein Vancomycin Trough Rheumatoid Factor Complement C4 Miscellaneous Test Crossmatch 11/13/16 11/15/16 11/15/16 Unknown 00:37 03:30 WBC 11.2 H RBC 2.72 L Hgb 7.6 L Hct 23.4 L MCV MCH MCHC RDW 16.5 H Plt Count Lymph % (Auto) [place] % (Auto) Lymph # [place] # Baso # Seg Neutrophils % Seg Neuts % (Manual) Lymphocytes % (Manual) Monocytes % (Manual) Eosinophils % (Manual) Basophils % (Manual) Nucleated RBC % Seg Neutrophils # Seg Neutrophils # Man Lymphocytes # (Manual) Monocytes # (Manual) Eosinophils # (Manual) Basophils # (Manual) PT INR Fibrinogen dRVVT Confirm Interp Factor V Activity POC ABG pH POC ABG pCO2 POC ABG pO2 ABG pO2 ABG HCO3 ABG Base Excess ABG Hemoglobin Oxyhemoglobin Sodium 135 L Potassium Chloride 95.2 L Carbon Dioxide BUN 52 H Creatinine 2.2 H Glucose POC Glucose 108 H Lactic Acid Calcium Ionized Calcium Phosphorus Magnesium Direct Bilirubin AST ALT Alkaline Phosphatase Lactate Dehydrogenase Troponin T C-Reactive Protein Total Protein Albumin Prealbumin Triglycerides Cholesterol LDL Cholesterol Direct HDL Cholesterol 25-OH Vitamin D Total PTH Intact Urine pH Urine WBC (Auto) Urine Creatinine Urine Total Protein Fluid Total Protein Vancomycin Trough Rheumatoid Factor Complement C4 Miscellaneous Test Crossmatch 11/15/16 11/15/16 11/15/16 03:30 05:04 11:50 WBC RBC Hgb Hct MCV MCH MCHC RDW Plt Count Lymph % (Auto) [place] % (Auto) Lymph # [place] # Baso # Seg Neutrophils % Seg Neuts % (Manual) Lymphocytes % (Manual) Monocytes % (Manual) Eosinophils % (Manual) Basophils % (Manual) Nucleated RBC % Seg Neutrophils # Seg Neutrophils # Man Lymphocytes # (Manual) Monocytes # (Manual) Eosinophils # (Manual) Basophils # (Manual) PT INR Fibrinogen dRVVT Confirm Interp Factor V Activity POC ABG pH POC ABG pCO2 POC ABG pO2 ABG pO2 ABG HCO3 ABG Base Excess ABG Hemoglobin Oxyhemoglobin Sodium Potassium 3.4 L Chloride Carbon Dioxide BUN 25 H Creatinine 1.5 H Glucose 103 H POC Glucose 121 H 144 H Lactic Acid Calcium Ionized Calcium Phosphorus Magnesium Direct Bilirubin AST ALT Alkaline Phosphatase Lactate Dehydrogenase Troponin T C-Reactive Protein Total Protein Albumin Prealbumin Triglycerides Cholesterol LDL Cholesterol Direct HDL Cholesterol 25-OH Vitamin D Total PTH Intact Urine pH Urine WBC (Auto) Urine Creatinine Urine Total Protein Fluid Total Protein Vancomycin Trough Rheumatoid Factor Complement C4 Miscellaneous Test Crossmatch 11/15/16 11/15/16 11/16/16 21:28 23:20 11:44 WBC RBC Hgb Hct MCV MCH MCHC RDW Plt Count Lymph % (Auto) [place] % (Auto) Lymph # [place] # Baso # Seg Neutrophils % Seg Neuts % (Manual) Lymphocytes % (Manual) Monocytes % (Manual) Eosinophils % (Manual) Basophils % (Manual) Nucleated RBC % Seg Neutrophils # Seg Neutrophils # Man Lymphocytes # (Manual) Monocytes # (Manual) Eosinophils # (Manual) Basophils # (Manual) PT INR Fibrinogen dRVVT Confirm Interp Factor V Activity POC ABG pH 7.462 H POC ABG pCO2 POC ABG pO2 71 L ABG pO2 ABG HCO3 ABG Base Excess ABG Hemoglobin Oxyhemoglobin Sodium Potassium Chloride Carbon Dioxide BUN Creatinine Glucose POC Glucose 116 H 133 H Lactic Acid Calcium Ionized Calcium Phosphorus Magnesium Direct Bilirubin AST ALT Alkaline Phosphatase Lactate Dehydrogenase Troponin T C-Reactive Protein Total Protein Albumin Prealbumin Triglycerides Cholesterol LDL Cholesterol Direct HDL Cholesterol 25-OH Vitamin D Total PTH Intact Urine pH Urine WBC (Auto) Urine Creatinine Urine Total Protein Fluid Total Protein Vancomycin Trough Rheumatoid Factor Complement C4 Miscellaneous Test Crossmatch 11/16/16 11/16/16 11/16/16 12:20 17:05 23:35 WBC 11.7 H RBC 2.73 L Hgb 7.6 L Hct 23.7 L MCV MCH MCHC RDW 16.6 H Plt Count Lymph % (Auto) [place] % (Auto) Lymph # [place] # Baso # Seg Neutrophils % Seg Neuts % (Manual) Lymphocytes % (Manual) Monocytes % (Manual) Eosinophils % (Manual) Basophils % (Manual) Nucleated RBC % Seg Neutrophils # Seg Neutrophils # Man Lymphocytes # (Manual) Monocytes # (Manual) Eosinophils # (Manual) Basophils # (Manual) PT INR Fibrinogen dRVVT Confirm Interp Factor V Activity POC ABG pH POC ABG pCO2 POC ABG pO2 ABG pO2 ABG HCO3 ABG Base Excess ABG Hemoglobin Oxyhemoglobin Sodium Potassium Chloride Carbon Dioxide BUN Creatinine Glucose POC Glucose 154 H 125 H Lactic Acid Calcium Ionized Calcium Phosphorus Magnesium Direct Bilirubin AST ALT Alkaline Phosphatase Lactate Dehydrogenase Troponin T C-Reactive Protein Total Protein Albumin Prealbumin Triglycerides Cholesterol LDL Cholesterol Direct HDL Cholesterol 25-OH Vitamin D Total PTH Intact Urine pH Urine WBC (Auto) Urine Creatinine Urine Total Protein Fluid Total Protein Vancomycin Trough Rheumatoid Factor Complement C4 Miscellaneous Test Crossmatch 11/17/16 11/17/16 11/17/16 03:20 03:20 03:20 WBC RBC 2.55 L Hgb 7.3 L Hct 21.9 L MCV MCH MCHC RDW 16.6 H Plt Count Lymph % (Auto) [place] % (Auto) 11.5 H Lymph # [place] # 1.1 H Baso # Seg Neutrophils % Seg Neuts % (Manual) Lymphocytes % (Manual) Monocytes % (Manual) Eosinophils % (Manual) Basophils % (Manual) Nucleated RBC % Seg Neutrophils # Seg Neutrophils # Man Lymphocytes # (Manual) Monocytes # (Manual) Eosinophils # (Manual) Basophils # (Manual) PT 16.8 H INR 1.37 H Fibrinogen dRVVT Confirm Interp Factor V Activity POC ABG pH POC ABG pCO2 POC ABG pO2 ABG pO2 ABG HCO3 ABG Base Excess ABG Hemoglobin Oxyhemoglobin Sodium Potassium 3.5 L Chloride Carbon Dioxide BUN 21 H Creatinine Glucose POC Glucose Lactic Acid Calcium 7.9 L Ionized Calcium Phosphorus Magnesium Direct Bilirubin AST ALT Alkaline Phosphatase Lactate Dehydrogenase Troponin T C-Reactive Protein Total Protein Albumin Prealbumin Triglycerides Cholesterol LDL Cholesterol Direct HDL Cholesterol 25-OH Vitamin D Total PTH Intact Urine pH Urine WBC (Auto) Urine Creatinine Urine Total Protein Fluid Total Protein Vancomycin Trough Rheumatoid Factor Complement C4 Miscellaneous Test Crossmatch 11/17/16 11/17/16 11/17/16 06:34 11:21 21:22 WBC RBC Hgb Hct MCV MCH MCHC RDW Plt Count Lymph % (Auto) [place] % (Auto) Lymph # [place] # Baso # Seg Neutrophils % Seg Neuts % (Manual) Lymphocytes % (Manual) Monocytes % (Manual) Eosinophils % (Manual) Basophils % (Manual) Nucleated RBC % Seg Neutrophils # Seg Neutrophils # Man Lymphocytes # (Manual) Monocytes # (Manual) Eosinophils # (Manual) Basophils # (Manual) PT INR Fibrinogen dRVVT Confirm Interp Factor V Activity POC ABG pH 7.467 H POC ABG pCO2 POC ABG pO2 73 L ABG pO2 ABG HCO3 ABG Base Excess ABG Hemoglobin Oxyhemoglobin Sodium Potassium Chloride Carbon Dioxide BUN Creatinine Glucose POC Glucose 121 H 119 H Lactic Acid Calcium Ionized Calcium Phosphorus Magnesium Direct Bilirubin AST ALT Alkaline Phosphatase Lactate Dehydrogenase Troponin T C-Reactive Protein Total Protein Albumin Prealbumin Triglycerides Cholesterol LDL Cholesterol Direct HDL Cholesterol 25-OH Vitamin D Total PTH Intact Urine pH Urine WBC (Auto) Urine Creatinine Urine Total Protein Fluid Total Protein Vancomycin Trough Rheumatoid Factor Complement C4 Miscellaneous Test Crossmatch 11/18/16 11/18/16 11/19/16 12:16 17:19 00:00 WBC RBC Hgb Hct MCV MCH MCHC RDW Plt Count Lymph % (Auto) [place] % (Auto) Lymph # [place] # Baso # Seg Neutrophils % Seg Neuts % (Manual) Lymphocytes % (Manual) Monocytes % (Manual) Eosinophils % (Manual) Basophils % (Manual) Nucleated RBC % Seg Neutrophils # Seg Neutrophils # Man Lymphocytes # (Manual) Monocytes # (Manual) Eosinophils # (Manual) Basophils # (Manual) PT INR Fibrinogen dRVVT Confirm Interp Factor V Activity POC ABG pH POC ABG pCO2 POC ABG pO2 ABG pO2 ABG HCO3 ABG Base Excess ABG Hemoglobin Oxyhemoglobin Sodium Potassium Chloride Carbon Dioxide BUN Creatinine Glucose POC Glucose 124 H 162 H 139 H Lactic Acid Calcium Ionized Calcium Phosphorus Magnesium Direct Bilirubin AST ALT Alkaline Phosphatase Lactate Dehydrogenase Troponin T C-Reactive Protein Total Protein Albumin Prealbumin Triglycerides Cholesterol LDL Cholesterol Direct HDL Cholesterol 25-OH Vitamin D Total PTH Intact Urine pH Urine WBC (Auto) Urine Creatinine Urine Total Protein Fluid Total Protein Vancomycin Trough Rheumatoid Factor Complement C4 Miscellaneous Test Crossmatch 11/19/16 11/19/16 11/20/16 05:00 12:43 00:40 WBC RBC Hgb Hct MCV MCH MCHC RDW Plt Count Lymph % (Auto) [place] % (Auto) Lymph # [place] # Baso # Seg Neutrophils % Seg Neuts % (Manual) Lymphocytes % (Manual) Monocytes % (Manual) Eosinophils % (Manual) Basophils % (Manual) Nucleated RBC % Seg Neutrophils # Seg Neutrophils # Man Lymphocytes # (Manual) Monocytes # (Manual) Eosinophils # (Manual) Basophils # (Manual) PT INR Fibrinogen dRVVT Confirm Interp Factor V Activity POC ABG pH POC ABG pCO2 POC ABG pO2 ABG pO2 ABG HCO3 ABG Base Excess ABG Hemoglobin Oxyhemoglobin Sodium Potassium Chloride Carbon Dioxide BUN Creatinine Glucose POC Glucose 110 H 125 H 136 H Lactic Acid Calcium Ionized Calcium Phosphorus Magnesium Direct Bilirubin AST ALT Alkaline Phosphatase Lactate Dehydrogenase Troponin T C-Reactive Protein Total Protein Albumin Prealbumin Triglycerides Cholesterol LDL Cholesterol Direct HDL Cholesterol 25-OH Vitamin D Total PTH Intact Urine pH Urine WBC (Auto) Urine Creatinine Urine Total Protein Fluid Total Protein Vancomycin Trough Rheumatoid Factor Complement C4 Miscellaneous Test Crossmatch 11/20/16 11/20/16 11/20/16 05:00 05:00 05:51 WBC 13.1 H RBC 2.74 L Hgb 7.7 L Hct 23.6 L MCV MCH MCHC RDW 16.9 H Plt Count Lymph % (Auto) [place] % (Auto) 10.8 H Lymph # [place] # 1.4 H Baso # Seg Neutrophils % Seg Neuts % (Manual) Lymphocytes % (Manual) Monocytes % (Manual) Eosinophils % (Manual) Basophils % (Manual) Nucleated RBC % Seg Neutrophils # 7.9 H Seg Neutrophils # Man Lymphocytes # (Manual) Monocytes # (Manual) Eosinophils # (Manual) Basophils # (Manual) PT INR Fibrinogen dRVVT Confirm Interp Factor V Activity POC ABG pH POC ABG pCO2 POC ABG pO2 ABG pO2 ABG HCO3 ABG Base Excess ABG Hemoglobin Oxyhemoglobin Sodium Potassium Chloride Carbon Dioxide BUN 31 H Creatinine 1.8 H Glucose 129 H POC Glucose 133 H Lactic Acid Calcium Ionized Calcium Phosphorus Magnesium Direct Bilirubin AST ALT Alkaline Phosphatase Lactate Dehydrogenase Troponin T C-Reactive Protein Total Protein Albumin Prealbumin Triglycerides Cholesterol LDL Cholesterol Direct HDL Cholesterol 25-OH Vitamin D Total PTH Intact Urine pH Urine WBC (Auto) Urine Creatinine Urine Total Protein Fluid Total Protein Vancomycin Trough Rheumatoid Factor Complement C4 Miscellaneous Test Crossmatch 11/20/16 11/20/16 11/21/16 12:40 18:10 01:20 WBC RBC Hgb Hct MCV MCH MCHC RDW Plt Count Lymph % (Auto) [place] % (Auto) Lymph # [place] # Baso # Seg Neutrophils % Seg Neuts % (Manual) Lymphocytes % (Manual) Monocytes % (Manual) Eosinophils % (Manual) Basophils % (Manual) Nucleated RBC % Seg Neutrophils # Seg Neutrophils # Man Lymphocytes # (Manual) Monocytes # (Manual) Eosinophils # (Manual) Basophils # (Manual) PT INR Fibrinogen dRVVT Confirm Interp Factor V Activity POC ABG pH POC ABG pCO2 POC ABG pO2 ABG pO2 ABG HCO3 ABG Base Excess ABG Hemoglobin Oxyhemoglobin Sodium Potassium Chloride Carbon Dioxide BUN Creatinine Glucose POC Glucose 134 H 138 H 136 H Lactic Acid Calcium Ionized Calcium Phosphorus Magnesium Direct Bilirubin AST ALT Alkaline Phosphatase Lactate Dehydrogenase Troponin T C-Reactive Protein Total Protein Albumin Prealbumin Triglycerides Cholesterol LDL Cholesterol Direct HDL Cholesterol 25-OH Vitamin D Total PTH Intact Urine pH Urine WBC (Auto) Urine Creatinine Urine Total Protein Fluid Total Protein Vancomycin Trough Rheumatoid Factor Complement C4 Miscellaneous Test Crossmatch 11/21/16 11/21/16 11/21/16 07:04 07:45 07:45 WBC 22.0 H RBC 2.91 L Hgb 8.2 L Hct 25.4 L MCV MCH MCHC RDW 17.1 H Plt Count Lymph % (Auto) [place] % (Auto) Lymph # [place] # Baso # Seg Neutrophils % Seg Neuts % (Manual) Lymphocytes % (Manual) 8.0 L Monocytes % (Manual) Eosinophils % (Manual) Basophils % (Manual) Nucleated RBC % Seg Neutrophils # Seg Neutrophils # Man 14.7 H Lymphocytes # (Manual) Monocytes # (Manual) 1.1 H Eosinophils # (Manual) Basophils # (Manual) PT INR Fibrinogen dRVVT Confirm Interp Factor V Activity POC ABG pH POC ABG pCO2 POC ABG pO2 ABG pO2 ABG HCO3 ABG Base Excess ABG Hemoglobin Oxyhemoglobin Sodium Potassium Chloride Carbon Dioxide BUN 42 H Creatinine 2.0 H Glucose POC Glucose 108 H Lactic Acid Calcium Ionized Calcium Phosphorus Magnesium Direct Bilirubin AST ALT Alkaline Phosphatase Lactate Dehydrogenase Troponin T C-Reactive Protein Total Protein Albumin Prealbumin Triglycerides Cholesterol LDL Cholesterol Direct HDL Cholesterol 25-OH Vitamin D Total PTH Intact Urine pH Urine WBC (Auto) Urine Creatinine Urine Total Protein Fluid Total Protein Vancomycin Trough Rheumatoid Factor Complement C4 Miscellaneous Test Crossmatch 11/21/16 11/21/16 11/21/16 08:38 10:09 11:20 WBC RBC Hgb Hct MCV MCH MCHC RDW Plt Count Lymph % (Auto) [place] % (Auto) Lymph # [place] # Baso # Seg Neutrophils % Seg Neuts % (Manual) Lymphocytes % (Manual) Monocytes % (Manual) Eosinophils % (Manual) Basophils % (Manual) Nucleated RBC % Seg Neutrophils # Seg Neutrophils # Man Lymphocytes # (Manual) Monocytes # (Manual) Eosinophils # (Manual) Basophils # (Manual) PT INR Fibrinogen dRVVT Confirm Interp Factor V Activity POC ABG pH 7.346 L POC ABG pCO2 34.4 L POC ABG pO2 314 H ABG pO2 ABG HCO3 ABG Base Excess ABG Hemoglobin Oxyhemoglobin Sodium Potassium Chloride Carbon Dioxide BUN Creatinine Glucose POC Glucose 195 H 153 H Lactic Acid Calcium Ionized Calcium Phosphorus Magnesium Direct Bilirubin AST ALT Alkaline Phosphatase Lactate Dehydrogenase Troponin T C-Reactive Protein Total Protein Albumin Prealbumin Triglycerides Cholesterol LDL Cholesterol Direct HDL Cholesterol 25-OH Vitamin D Total PTH Intact Urine pH Urine WBC (Auto) Urine Creatinine Urine Total Protein Fluid Total Protein Vancomycin Trough Rheumatoid Factor Complement C4 Miscellaneous Test Crossmatch 11/21/16 11/22/16 11/22/16 23:37 04:48 05:00 WBC 29.7 H RBC 2.73 L Hgb 7.5 L Hct 24.2 L MCV MCH 27 L MCHC RDW 17.4 H Plt Count Lymph % (Auto) [place] % (Auto) Lymph # [place] # Baso # Seg Neutrophils % Seg Neuts % (Manual) Lymphocytes % (Manual) 7.0 L Monocytes % (Manual) Eosinophils % (Manual) Basophils % (Manual) Nucleated RBC % Seg Neutrophils # Seg Neutrophils # Man 15.4 H Lymphocytes # (Manual) Monocytes # (Manual) Eosinophils # (Manual) Basophils # (Manual) PT INR Fibrinogen dRVVT Confirm Interp Factor V Activity POC ABG pH POC ABG pCO2 24.6 L POC ABG pO2 189 H ABG pO2 ABG HCO3 ABG Base Excess ABG Hemoglobin Oxyhemoglobin Sodium Potassium Chloride Carbon Dioxide BUN Creatinine Glucose POC Glucose 65 L Lactic Acid Calcium Ionized Calcium Phosphorus Magnesium Direct Bilirubin AST ALT Alkaline Phosphatase Lactate Dehydrogenase Troponin T C-Reactive Protein Total Protein Albumin Prealbumin Triglycerides Cholesterol LDL Cholesterol Direct HDL Cholesterol 25-OH Vitamin D Total PTH Intact Urine pH Urine WBC (Auto) Urine Creatinine Urine Total Protein Fluid Total Protein Vancomycin Trough Rheumatoid Factor Complement C4 Miscellaneous Test Crossmatch 11/22/16 11/23/16 11/23/16 05:00 03:44 04:06 WBC RBC 2.52 L Hgb 7.2 L Hct 21.5 L MCV MCH MCHC RDW 17.1 H Plt Count Lymph % (Auto) [place] % (Auto) 12.4 H Lymph # [place] # 1.4 H Baso # Seg Neutrophils % Seg Neuts % (Manual) Lymphocytes % (Manual) Monocytes % (Manual) Eosinophils % (Manual) Basophils % (Manual) Nucleated RBC % Seg Neutrophils # Seg Neutrophils # Man Lymphocytes # (Manual) Monocytes # (Manual) Eosinophils # (Manual) Basophils # (Manual) PT INR Fibrinogen dRVVT Confirm Interp Factor V Activity POC ABG pH 7.493 H POC ABG pCO2 29.5 L POC ABG pO2 49 L ABG pO2 ABG HCO3 ABG Base Excess ABG Hemoglobin Oxyhemoglobin Sodium 134 L Potassium Chloride 95.9 L Carbon Dioxide 14 L D BUN 51 H Creatinine 2.6 H Glucose POC Glucose Lactic Acid Calcium Ionized Calcium Phosphorus Magnesium Direct Bilirubin AST ALT Alkaline Phosphatase Lactate Dehydrogenase Troponin T C-Reactive Protein Total Protein Albumin Prealbumin Triglycerides Cholesterol LDL Cholesterol Direct HDL Cholesterol 25-OH Vitamin D Total PTH Intact Urine pH Urine WBC (Auto) Urine Creatinine Urine Total Protein Fluid Total Protein Vancomycin Trough Rheumatoid Factor Complement C4 Miscellaneous Test Crossmatch 11/23/16 11/23/16 11/24/16 04:06 11:29 06:39 WBC RBC Hgb Hct MCV MCH MCHC RDW Plt Count Lymph % (Auto) [place] % (Auto) Lymph # [place] # Baso # Seg Neutrophils % Seg Neuts % (Manual) Lymphocytes % (Manual) Monocytes % (Manual) Eosinophils % (Manual) Basophils % (Manual) Nucleated RBC % Seg Neutrophils # Seg Neutrophils # Man Lymphocytes # (Manual) Monocytes # (Manual) Eosinophils # (Manual) Basophils # (Manual) PT INR Fibrinogen dRVVT Confirm Interp Factor V Activity POC ABG pH POC ABG pCO2 POC ABG pO2 ABG pO2 ABG HCO3 ABG Base Excess ABG Hemoglobin Oxyhemoglobin Sodium 136 L Potassium Chloride 95.2 L Carbon Dioxide BUN 60 H Creatinine 2.9 H Glucose POC Glucose 69 L 305 H Lactic Acid Calcium Ionized Calcium Phosphorus Magnesium 1.60 L Direct Bilirubin AST ALT Alkaline Phosphatase Lactate Dehydrogenase Troponin T C-Reactive Protein Total Protein Albumin Prealbumin Triglycerides Cholesterol LDL Cholesterol Direct HDL Cholesterol 25-OH Vitamin D Total PTH Intact Urine pH Urine WBC (Auto) Urine Creatinine Urine Total Protein Fluid Total Protein Vancomycin Trough Rheumatoid Factor Complement C4 Miscellaneous Test Crossmatch 11/24/16 11/24/16 11/24/16 06:43 08:08 08:08 WBC 11.2 H RBC 2.47 L Hgb 6.8 L Hct 20.6 L MCV MCH MCHC RDW 17.0 H Plt Count Lymph % (Auto) [place] % (Auto) 10.3 H Lymph # [place] # 1.2 H Baso # Seg Neutrophils % Seg Neuts % (Manual) Lymphocytes % (Manual) Monocytes % (Manual) Eosinophils % (Manual) Basophils % (Manual) Nucleated RBC % Seg Neutrophils # Seg Neutrophils # Man Lymphocytes # (Manual) Monocytes # (Manual) Eosinophils # (Manual) Basophils # (Manual) PT INR Fibrinogen dRVVT Confirm Interp Factor V Activity POC ABG pH POC ABG pCO2 POC ABG pO2 ABG pO2 ABG HCO3 ABG Base Excess ABG Hemoglobin Oxyhemoglobin Sodium 135 L Potassium Chloride 96.3 L Carbon Dioxide BUN 61 H Creatinine 3.1 H Glucose POC Glucose 62 L Lactic Acid Calcium 8.2 L Ionized Calcium Phosphorus Magnesium Direct Bilirubin AST ALT Alkaline Phosphatase Lactate Dehydrogenase Troponin T C-Reactive Protein Total Protein Albumin Prealbumin Triglycerides Cholesterol LDL Cholesterol Direct HDL Cholesterol 25-OH Vitamin D Total PTH Intact Urine pH Urine WBC (Auto) Urine Creatinine Urine Total Protein Fluid Total Protein Vancomycin Trough Rheumatoid Factor Complement C4 Miscellaneous Test Crossmatch 11/24/16 11/24/16 11/24/16 08:34 11:20 12:41 WBC RBC Hgb Hct MCV MCH MCHC RDW Plt Count Lymph % (Auto) [place] % (Auto) Lymph # [place] # Baso # Seg Neutrophils % Seg Neuts % (Manual) Lymphocytes % (Manual) Monocytes % (Manual) Eosinophils % (Manual) Basophils % (Manual) Nucleated RBC % Seg Neutrophils # Seg Neutrophils # Man Lymphocytes # (Manual) Monocytes # (Manual) Eosinophils # (Manual) Basophils # (Manual) PT INR Fibrinogen dRVVT Confirm Interp Factor V Activity POC ABG pH POC ABG pCO2 POC ABG pO2 ABG pO2 ABG HCO3 ABG Base Excess ABG Hemoglobin Oxyhemoglobin Sodium Potassium Chloride Carbon Dioxide BUN Creatinine Glucose POC Glucose 108 H Lactic Acid Calcium Ionized Calcium Phosphorus Magnesium 1.60 L Direct Bilirubin AST ALT Alkaline Phosphatase Lactate Dehydrogenase Troponin T C-Reactive Protein Total Protein Albumin Prealbumin Triglycerides Cholesterol LDL Cholesterol Direct HDL Cholesterol 25-OH Vitamin D Total PTH Intact Urine pH Urine WBC (Auto) Urine Creatinine Urine Total Protein Fluid Total Protein Vancomycin Trough Rheumatoid Factor Complement C4 Miscellaneous Test Crossmatch See Detail 11/25/16 11/25/16 11/25/16 00:03 04:42 04:42 WBC RBC 3.03 L Hgb 8.6 L Hct 25.3 L MCV MCH MCHC RDW 16.2 H Plt Count Lymph % (Auto) [place] % (Auto) 8.1 H Lymph # [place] # Baso # Seg Neutrophils % 71.3 H Seg Neuts % (Manual) Lymphocytes % (Manual) Monocytes % (Manual) Eosinophils % (Manual) Basophils % (Manual) Nucleated RBC % Seg Neutrophils # Seg Neutrophils # Man Lymphocytes # (Manual) Monocytes # (Manual) Eosinophils # (Manual) Basophils # (Manual) PT INR Fibrinogen dRVVT Confirm Interp Factor V Activity POC ABG pH POC ABG pCO2 POC ABG pO2 ABG pO2 ABG HCO3 ABG Base Excess ABG Hemoglobin Oxyhemoglobin Sodium Potassium Chloride Carbon Dioxide BUN 61 H Creatinine 3.0 H Glucose 102 H POC Glucose 113 H Lactic Acid Calcium 8.2 L Ionized Calcium Phosphorus Magnesium Direct Bilirubin AST ALT Alkaline Phosphatase 142 H Lactate Dehydrogenase Troponin T C-Reactive Protein Total Protein 5.7 L Albumin 1.5 L Prealbumin Triglycerides Cholesterol LDL Cholesterol Direct HDL Cholesterol 25-OH Vitamin D Total PTH Intact Urine pH Urine WBC (Auto) Urine Creatinine Urine Total Protein Fluid Total Protein Vancomycin Trough Rheumatoid Factor Complement C4 Miscellaneous Test Crossmatch 11/25/16 11/25/16 11/25/16 05:12 11:31 14:12 WBC RBC Hgb Hct MCV MCH MCHC RDW Plt Count Lymph % (Auto) [place] % (Auto) Lymph # [place] # Baso # Seg Neutrophils % Seg Neuts % (Manual) Lymphocytes % (Manual) Monocytes % (Manual) Eosinophils % (Manual) Basophils % (Manual) Nucleated RBC % Seg Neutrophils # Seg Neutrophils # Man Lymphocytes # (Manual) Monocytes # (Manual) Eosinophils # (Manual) Basophils # (Manual) PT INR Fibrinogen dRVVT Confirm Interp Factor V Activity POC ABG pH 7.487 H POC ABG pCO2 POC ABG pO2 153 H ABG pO2 ABG HCO3 ABG Base Excess ABG Hemoglobin Oxyhemoglobin Sodium Potassium Chloride Carbon Dioxide BUN Creatinine Glucose POC Glucose 131 H 140 H Lactic Acid Calcium Ionized Calcium Phosphorus Magnesium Direct Bilirubin AST ALT Alkaline Phosphatase Lactate Dehydrogenase Troponin T C-Reactive Protein Total Protein Albumin Prealbumin Triglycerides Cholesterol LDL Cholesterol Direct HDL Cholesterol 25-OH Vitamin D Total PTH Intact Urine pH Urine WBC (Auto) Urine Creatinine Urine Total Protein Fluid Total Protein Vancomycin Trough Rheumatoid Factor Complement C4 Miscellaneous Test Crossmatch 11/25/16 11/26/16 11/26/16 17:23 00:09 05:13 WBC RBC 2.94 L Hgb 8.4 L Hct 24.6 L MCV MCH MCHC RDW 16.4 H Plt Count Lymph % (Auto) [place] % (Auto) 12.3 H Lymph # [place] # 1.1 H Baso # Seg Neutrophils % Seg Neuts % (Manual) Lymphocytes % (Manual) Monocytes % (Manual) Eosinophils % (Manual) Basophils % (Manual) Nucleated RBC % Seg Neutrophils # Seg Neutrophils # Man Lymphocytes # (Manual) Monocytes # (Manual) Eosinophils # (Manual) Basophils # (Manual) PT INR Fibrinogen dRVVT Confirm Interp Factor V Activity POC ABG pH POC ABG pCO2 POC ABG pO2 ABG pO2 ABG HCO3 ABG Base Excess ABG Hemoglobin Oxyhemoglobin Sodium Potassium Chloride Carbon Dioxide BUN Creatinine Glucose POC Glucose 146 H 112 H Lactic Acid Calcium Ionized Calcium Phosphorus Magnesium Direct Bilirubin AST ALT Alkaline Phosphatase Lactate Dehydrogenase Troponin T C-Reactive Protein Total Protein Albumin Prealbumin Triglycerides Cholesterol LDL Cholesterol Direct HDL Cholesterol 25-OH Vitamin D Total PTH Intact Urine pH Urine WBC (Auto) Urine Creatinine Urine Total Protein Fluid Total Protein Vancomycin Trough Rheumatoid Factor Complement C4 Miscellaneous Test Crossmatch 11/26/16 11/26/16 11/26/16 05:13 05:28 11:53 WBC RBC Hgb Hct MCV MCH MCHC RDW Plt Count Lymph % (Auto) [place] % (Auto) Lymph # [place] # Baso # Seg Neutrophils % Seg Neuts % (Manual) Lymphocytes % (Manual) Monocytes % (Manual) Eosinophils % (Manual) Basophils % (Manual) Nucleated RBC % Seg Neutrophils # Seg Neutrophils # Man Lymphocytes # (Manual) Monocytes # (Manual) Eosinophils # (Manual) Basophils # (Manual) PT INR Fibrinogen dRVVT Confirm Interp Factor V Activity POC ABG pH POC ABG pCO2 POC ABG pO2 ABG pO2 ABG HCO3 ABG Base Excess ABG Hemoglobin Oxyhemoglobin Sodium Potassium Chloride 97.8 L Carbon Dioxide BUN 37 H Creatinine 2.0 H Glucose 109 H POC Glucose 117 H 111 H Lactic Acid Calcium 7.9 L Ionized Calcium Phosphorus 1.80 L D Magnesium Direct Bilirubin AST ALT Alkaline Phosphatase Lactate Dehydrogenase Troponin T C-Reactive Protein Total Protein Albumin Prealbumin Triglycerides Cholesterol LDL Cholesterol Direct HDL Cholesterol 25-OH Vitamin D Total PTH Intact Urine pH Urine WBC (Auto) Urine Creatinine Urine Total Protein Fluid Total Protein Vancomycin Trough Rheumatoid Factor Complement C4 Miscellaneous Test Crossmatch 11/26/16 11/27/16 11/27/16 17:14 04:50 06:02 WBC RBC Hgb Hct MCV MCH MCHC RDW Plt Count Lymph % (Auto) [place] % (Auto) Lymph # [place] # Baso # Seg Neutrophils % Seg Neuts % (Manual) Lymphocytes % (Manual) Monocytes % (Manual) Eosinophils % (Manual) Basophils % (Manual) Nucleated RBC % Seg Neutrophils # Seg Neutrophils # Man Lymphocytes # (Manual) Monocytes # (Manual) Eosinophils # (Manual) Basophils # (Manual) PT INR Fibrinogen dRVVT Confirm Interp Factor V Activity POC ABG pH POC ABG pCO2 POC ABG pO2 ABG pO2 75.2 L ABG HCO3 26.4 H ABG Base Excess ABG Hemoglobin 7.6 L Oxyhemoglobin 94.8 L Sodium Potassium Chloride Carbon Dioxide BUN 49 H Creatinine 2.3 H Glucose POC Glucose 115 H Lactic Acid Calcium Ionized Calcium Phosphorus 1.50 L Magnesium Direct Bilirubin AST ALT Alkaline Phosphatase Lactate Dehydrogenase Troponin T C-Reactive Protein Total Protein Albumin Prealbumin Triglycerides Cholesterol LDL Cholesterol Direct HDL Cholesterol 25-OH Vitamin D Total PTH Intact Urine pH Urine WBC (Auto) Urine Creatinine Urine Total Protein Fluid Total Protein Vancomycin Trough Rheumatoid Factor Complement C4 Miscellaneous Test Crossmatch 11/27/16 11/27/16 11/27/16 06:02 11:25 17:25 WBC 11.6 H RBC 2.75 L Hgb 7.6 L Hct 23.4 L MCV MCH MCHC RDW 16.5 H Plt Count Lymph % (Auto) [place] % (Auto) Lymph # [place] # Baso # Seg Neutrophils % Seg Neuts % (Manual) Lymphocytes % (Manual) Monocytes % (Manual) Eosinophils % (Manual) Basophils % (Manual) Nucleated RBC % Seg Neutrophils # Seg Neutrophils # Man Lymphocytes # (Manual) Monocytes # (Manual) Eosinophils # (Manual) Basophils # (Manual) PT INR Fibrinogen dRVVT Confirm Interp Factor V Activity POC ABG pH POC ABG pCO2 POC ABG pO2 ABG pO2 ABG HCO3 ABG Base Excess ABG Hemoglobin Oxyhemoglobin Sodium Potassium Chloride Carbon Dioxide BUN Creatinine Glucose POC Glucose 114 H 126 H Lactic Acid Calcium Ionized Calcium Phosphorus Magnesium Direct Bilirubin AST ALT Alkaline Phosphatase Lactate Dehydrogenase Troponin T C-Reactive Protein Total Protein Albumin Prealbumin Triglycerides Cholesterol LDL Cholesterol Direct HDL Cholesterol 25-OH Vitamin D Total PTH Intact Urine pH Urine WBC (Auto) Urine Creatinine Urine Total Protein Fluid Total Protein Vancomycin Trough Rheumatoid Factor Complement C4 Miscellaneous Test Crossmatch 11/28/16 11/28/16 11/28/16 04:45 05:33 05:44 WBC RBC Hgb Hct MCV MCH MCHC RDW Plt Count Lymph % (Auto) [place] % (Auto) Lymph # [place] # Baso # Seg Neutrophils % Seg Neuts % (Manual) Lymphocytes % (Manual) Monocytes % (Manual) Eosinophils % (Manual) Basophils % (Manual) Nucleated RBC % Seg Neutrophils # Seg Neutrophils # Man Lymphocytes # (Manual) Monocytes # (Manual) Eosinophils # (Manual) Basophils # (Manual) PT INR Fibrinogen dRVVT Confirm Interp Factor V Activity POC ABG pH POC ABG pCO2 POC ABG pO2 ABG pO2 99.3 H ABG HCO3 ABG Base Excess ABG Hemoglobin 8.3 L Oxyhemoglobin Sodium Potassium Chloride Carbon Dioxide BUN 63 H Creatinine 2.4 H Glucose 102 H POC Glucose 108 H Lactic Acid Calcium Ionized Calcium Phosphorus 1.80 L Magnesium Direct Bilirubin AST ALT Alkaline Phosphatase Lactate Dehydrogenase Troponin T C-Reactive Protein Total Protein Albumin Prealbumin Triglycerides Cholesterol LDL Cholesterol Direct HDL Cholesterol 25-OH Vitamin D Total PTH Intact Urine pH Urine WBC (Auto) Urine Creatinine Urine Total Protein Fluid Total Protein Vancomycin Trough Rheumatoid Factor Complement C4 Miscellaneous Test Crossmatch 1011/28/16 11/28/16 12:31 16:09 23:46 WBC RBC Hgb Hct MCV MCH MCHC RDW Plt Count Lymph % (Auto) [place] % (Auto) Lymph # [place] # Baso # Seg Neutrophils % Seg Neuts % (Manual) Lymphocytes % (Manual) Monocytes % (Manual) Eosinophils % (Manual) Basophils % (Manual) Nucleated RBC % Seg Neutrophils # Seg Neutrophils # Man Lymphocytes # (Manual) Monocytes # (Manual) Eosinophils # (Manual) Basophils # (Manual) PT INR Fibrinogen dRVVT Confirm Interp Factor V Activity POC ABG pH POC ABG pCO2 POC ABG pO2 ABG pO2 ABG HCO3 ABG Base Excess ABG Hemoglobin Oxyhemoglobin Sodium Potassium Chloride Carbon Dioxide BUN Creatinine Glucose POC Glucose 126 H 111 H 119 H Lactic Acid Calcium Ionized Calcium Phosphorus Magnesium Direct Bilirubin AST ALT Alkaline Phosphatase Lactate Dehydrogenase Troponin T C-Reactive Protein Total Protein Albumin Prealbumin Triglycerides Cholesterol LDL Cholesterol Direct HDL Cholesterol 25-OH Vitamin D Total PTH Intact Urine pH Urine WBC (Auto) Urine Creatinine Urine Total Protein Fluid Total Protein Vancomycin Trough Rheumatoid Factor Complement C4 Miscellaneous Test Crossmatch 11/29/16 11/29/16 11/29/16 03:33 04:52 05:10 WBC RBC Hgb Hct MCV MCH MCHC RDW Plt Count Lymph % (Auto) [place] % (Auto) Lymph # [place] # Baso # Seg Neutrophils % Seg Neuts % (Manual) Lymphocytes % (Manual) Monocytes % (Manual) Eosinophils % (Manual) Basophils % (Manual) Nucleated RBC % Seg Neutrophils # Seg Neutrophils # Man Lymphocytes # (Manual) Monocytes # (Manual) Eosinophils # (Manual) Basophils # (Manual) PT INR Fibrinogen dRVVT Confirm Interp Factor V Activity POC ABG pH POC ABG pCO2 POC ABG pO2 ABG pO2 ABG HCO3 ABG Base Excess ABG Hemoglobin 7.0 L Oxyhemoglobin 94.9 L Sodium Potassium Chloride Carbon Dioxide BUN 73 H Creatinine 2.7 H Glucose POC Glucose 108 H Lactic Acid Calcium Ionized Calcium Phosphorus Magnesium Direct Bilirubin AST ALT Alkaline Phosphatase Lactate Dehydrogenase Troponin T C-Reactive Protein Total Protein Albumin Prealbumin Triglycerides Cholesterol LDL Cholesterol Direct HDL Cholesterol 25-OH Vitamin D Total PTH Intact Urine pH Urine WBC (Auto) Urine Creatinine Urine Total Protein Fluid Total Protein Vancomycin Trough Rheumatoid Factor Complement C4 Miscellaneous Test Crossmatch 11/29/16 11/29/16 11/29/16 12:16 18:05 23:46 WBC RBC Hgb Hct MCV MCH MCHC RDW Plt Count Lymph % (Auto) [place] % (Auto) Lymph # [place] # Baso # Seg Neutrophils % Seg Neuts % (Manual) Lymphocytes % (Manual) Monocytes % (Manual) Eosinophils % (Manual) Basophils % (Manual) Nucleated RBC % Seg Neutrophils # Seg Neutrophils # Man Lymphocytes # (Manual) Monocytes # (Manual) Eosinophils # (Manual) Basophils # (Manual) PT INR Fibrinogen dRVVT Confirm Interp Factor V Activity POC ABG pH POC ABG pCO2 POC ABG pO2 ABG pO2 ABG HCO3 ABG Base Excess ABG Hemoglobin Oxyhemoglobin Sodium Potassium Chloride Carbon Dioxide BUN Creatinine Glucose POC Glucose 133 H 146 H 141 H Lactic Acid Calcium Ionized Calcium Phosphorus Magnesium Direct Bilirubin AST ALT Alkaline Phosphatase Lactate Dehydrogenase Troponin T C-Reactive Protein Total Protein Albumin Prealbumin Triglycerides Cholesterol LDL Cholesterol Direct HDL Cholesterol 25-OH Vitamin D Total PTH Intact Urine pH Urine WBC (Auto) Urine Creatinine Urine Total Protein Fluid Total Protein Vancomycin Trough Rheumatoid Factor Complement C4 Miscellaneous Test Crossmatch 11/30/16 11/30/16 11/30/16 04:17 04:17 04:32 WBC 12.0 H RBC 2.80 L Hgb 7.8 L Hct 23.6 L MCV MCH MCHC RDW 16.6 H Plt Count Lymph % (Auto) [place] % (Auto) 11.3 H Lymph # [place] # 1.4 H Baso # Seg Neutrophils % Seg Neuts % (Manual) Lymphocytes % (Manual) Monocytes % (Manual) Eosinophils % (Manual) Basophils % (Manual) Nucleated RBC % Seg Neutrophils # 8.2 H Seg Neutrophils # Man Lymphocytes # (Manual) Monocytes # (Manual) Eosinophils # (Manual) Basophils # (Manual) PT INR Fibrinogen dRVVT Confirm Interp Factor V Activity POC ABG pH POC ABG pCO2 POC ABG pO2 ABG pO2 ABG HCO3 ABG Base Excess ABG Hemoglobin Oxyhemoglobin Sodium 169 H* D Potassium 5.1 H Chloride 121.5 H Carbon Dioxide BUN 34 H Creatinine 1.3 H D Glucose 133 H POC Glucose 131 H Lactic Acid Calcium 10.3 H Ionized Calcium Phosphorus Magnesium Direct Bilirubin AST ALT Alkaline Phosphatase Lactate Dehydrogenase Troponin T C-Reactive Protein Total Protein Albumin Prealbumin Triglycerides Cholesterol LDL Cholesterol Direct HDL Cholesterol 25-OH Vitamin D Total PTH Intact Urine pH Urine WBC (Auto) Urine Creatinine Urine Total Protein Fluid Total Protein Vancomycin Trough Rheumatoid Factor Complement C4 Miscellaneous Test Crossmatch 11/30/16 11/30/16 11/30/16 05:45 11:10 17:26 WBC RBC Hgb Hct MCV MCH MCHC RDW Plt Count Lymph % (Auto) [place] % (Auto) Lymph # [place] # Baso # Seg Neutrophils % Seg Neuts % (Manual) Lymphocytes % (Manual) Monocytes % (Manual) Eosinophils % (Manual) Basophils % (Manual) Nucleated RBC % Seg Neutrophils # Seg Neutrophils # Man Lymphocytes # (Manual) Monocytes # (Manual) Eosinophils # (Manual) Basophils # (Manual) PT INR Fibrinogen dRVVT Confirm Interp Factor V Activity POC ABG pH POC ABG pCO2 POC ABG pO2 ABG pO2 ABG HCO3 ABG Base Excess ABG Hemoglobin Oxyhemoglobin Sodium Potassium Chloride Carbon Dioxide BUN 45 H Creatinine 1.6 H Glucose 131 H POC Glucose 146 H 134 H Lactic Acid Calcium Ionized Calcium Phosphorus Magnesium Direct Bilirubin AST ALT Alkaline Phosphatase Lactate Dehydrogenase Troponin T C-Reactive Protein Total Protein Albumin Prealbumin Triglycerides Cholesterol LDL Cholesterol Direct HDL Cholesterol 25-OH Vitamin D Total PTH Intact Urine pH Urine WBC (Auto) Urine Creatinine Urine Total Protein Fluid Total Protein Vancomycin Trough Rheumatoid Factor Complement C4 Miscellaneous Test Crossmatch 11/30/16 12/01/16 12/01/16 23:35 00:06 03:35 WBC RBC Hgb Hct MCV MCH MCHC RDW Plt Count Lymph % (Auto) [place] % (Auto) Lymph # [place] # Baso # Seg Neutrophils % Seg Neuts % (Manual) Lymphocytes % (Manual) Monocytes % (Manual) Eosinophils % (Manual) Basophils % (Manual) Nucleated RBC % Seg Neutrophils # Seg Neutrophils # Man Lymphocytes # (Manual) Monocytes # (Manual) Eosinophils # (Manual) Basophils # (Manual) PT INR Fibrinogen dRVVT Confirm Interp Factor V Activity POC ABG pH POC ABG pCO2 POC ABG pO2 ABG pO2 ABG HCO3 ABG Base Excess ABG Hemoglobin 6.9 L Oxyhemoglobin Sodium Potassium Chloride Carbon Dioxide BUN 58 H Creatinine 1.8 H Glucose 146 H POC Glucose 151 H Lactic Acid Calcium Ionized Calcium Phosphorus Magnesium Direct Bilirubin AST ALT Alkaline Phosphatase Lactate Dehydrogenase Troponin T C-Reactive Protein Total Protein Albumin Prealbumin Triglycerides Cholesterol LDL Cholesterol Direct HDL Cholesterol 25-OH Vitamin D Total PTH Intact Urine pH Urine WBC (Auto) Urine Creatinine Urine Total Protein Fluid Total Protein Vancomycin Trough Rheumatoid Factor Complement C4 Miscellaneous Test Crossmatch 12/01/16 12/01/16 12/01/16 03:35 05:47 11:52 WBC 12.3 H RBC 2.82 L Hgb 7.8 L Hct 23.7 L MCV MCH MCHC RDW 16.7 H Plt Count Lymph % (Auto) [place] % (Auto) 9.8 H Lymph # [place] # 1.2 H Baso # Seg Neutrophils % Seg Neuts % (Manual) Lymphocytes % (Manual) Monocytes % (Manual) Eosinophils % (Manual) Basophils % (Manual) Nucleated RBC % Seg Neutrophils # 8.4 H Seg Neutrophils # Man Lymphocytes # (Manual) Monocytes # (Manual) Eosinophils # (Manual) Basophils # (Manual) PT INR Fibrinogen dRVVT Confirm Interp Factor V Activity POC ABG pH POC ABG pCO2 POC ABG pO2 ABG pO2 ABG HCO3 ABG Base Excess ABG Hemoglobin Oxyhemoglobin Sodium Potassium Chloride Carbon Dioxide BUN Creatinine Glucose POC Glucose 152 H 152 H Lactic Acid Calcium Ionized Calcium Phosphorus Magnesium Direct Bilirubin AST ALT Alkaline Phosphatase Lactate Dehydrogenase Troponin T C-Reactive Protein Total Protein Albumin Prealbumin Triglycerides Cholesterol LDL Cholesterol Direct HDL Cholesterol 25-OH Vitamin D Total PTH Intact Urine pH Urine WBC (Auto) Urine Creatinine Urine Total Protein Fluid Total Protein Vancomycin Trough Rheumatoid Factor Complement C4 Miscellaneous Test Crossmatch 12/01/16 12/01/16 12/02/16 17:40 23:41 05:00 WBC RBC Hgb Hct MCV MCH MCHC RDW Plt Count Lymph % (Auto) [place] % (Auto) Lymph # [place] # Baso # Seg Neutrophils % Seg Neuts % (Manual) Lymphocytes % (Manual) Monocytes % (Manual) Eosinophils % (Manual) Basophils % (Manual) Nucleated RBC % Seg Neutrophils # Seg Neutrophils # Man Lymphocytes # (Manual) Monocytes # (Manual) Eosinophils # (Manual) Basophils # (Manual) PT INR Fibrinogen dRVVT Confirm Interp Factor V Activity POC ABG pH POC ABG pCO2 POC ABG pO2 ABG pO2 ABG HCO3 ABG Base Excess ABG Hemoglobin Oxyhemoglobin Sodium Potassium Chloride Carbon Dioxide BUN 45 H Creatinine Glucose 115 H POC Glucose 140 H 144 H Lactic Acid Calcium Ionized Calcium Phosphorus Magnesium Direct Bilirubin AST ALT Alkaline Phosphatase Lactate Dehydrogenase Troponin T C-Reactive Protein Total Protein Albumin Prealbumin Triglycerides Cholesterol LDL Cholesterol Direct HDL Cholesterol 25-OH Vitamin D Total PTH Intact Urine pH Urine WBC (Auto) Urine Creatinine Urine Total Protein Fluid Total Protein Vancomycin Trough Rheumatoid Factor Complement C4 Miscellaneous Test Crossmatch 12/02/16 12/02/16 12/02/16 05:31 11:20 17:38 WBC RBC Hgb Hct MCV MCH MCHC RDW Plt Count Lymph % (Auto) [place] % (Auto) Lymph # [place] # Baso # Seg Neutrophils % Seg Neuts % (Manual) Lymphocytes % (Manual) Monocytes % (Manual) Eosinophils % (Manual) Basophils % (Manual) Nucleated RBC % Seg Neutrophils # Seg Neutrophils # Man Lymphocytes # (Manual) Monocytes # (Manual) Eosinophils # (Manual) Basophils # (Manual) PT INR Fibrinogen dRVVT Confirm Interp Factor V Activity POC ABG pH POC ABG pCO2 POC ABG pO2 ABG pO2 ABG HCO3 ABG Base Excess ABG Hemoglobin Oxyhemoglobin Sodium Potassium Chloride Carbon Dioxide BUN Creatinine Glucose POC Glucose 136 H 177 H 139 H Lactic Acid Calcium Ionized Calcium Phosphorus Magnesium Direct Bilirubin AST ALT Alkaline Phosphatase Lactate Dehydrogenase Troponin T C-Reactive Protein Total Protein Albumin Prealbumin Triglycerides Cholesterol LDL Cholesterol Direct HDL Cholesterol 25-OH Vitamin D Total PTH Intact Urine pH Urine WBC (Auto) Urine Creatinine Urine Total Protein Fluid Total Protein Vancomycin Trough Rheumatoid Factor Complement C4 Miscellaneous Test Crossmatch 12/02/16 12/03/16 12/03/16 23:43 04:00 04:00 WBC 20.4 H RBC 2.74 L Hgb 7.4 L Hct 23.6 L MCV MCH 27 L MCHC RDW 17.1 H Plt Count Lymph % (Auto) [place] % (Auto) Lymph # [place] # Baso # Seg Neutrophils % Seg Neuts % (Manual) 31.0 L Lymphocytes % (Manual) Monocytes % (Manual) Eosinophils % (Manual) Basophils % (Manual) Nucleated RBC % Seg Neutrophils # Seg Neutrophils # Man Lymphocytes # (Manual) Monocytes # (Manual) Eosinophils # (Manual) Basophils # (Manual) PT INR Fibrinogen dRVVT Confirm Interp Factor V Activity POC ABG pH POC ABG pCO2 POC ABG pO2 ABG pO2 ABG HCO3 ABG Base Excess ABG Hemoglobin Oxyhemoglobin Sodium Potassium Chloride Carbon Dioxide BUN 61 H Creatinine 1.6 H Glucose 119 H POC Glucose 158 H Lactic Acid Calcium Ionized Calcium Phosphorus Magnesium Direct Bilirubin AST ALT Alkaline Phosphatase Lactate Dehydrogenase Troponin T C-Reactive Protein Total Protein Albumin Prealbumin Triglycerides Cholesterol LDL Cholesterol Direct HDL Cholesterol 25-OH Vitamin D Total PTH Intact Urine pH Urine WBC (Auto) Urine Creatinine Urine Total Protein Fluid Total Protein Vancomycin Trough Rheumatoid Factor Complement C4 Miscellaneous Test Crossmatch 12/03/16 12/03/16 12/03/16 05:02 12:11 18:16 WBC RBC Hgb Hct MCV MCH MCHC RDW Plt Count Lymph % (Auto) [place] % (Auto) Lymph # [place] # Baso # Seg Neutrophils % Seg Neuts % (Manual) Lymphocytes % (Manual) Monocytes % (Manual) Eosinophils % (Manual) Basophils % (Manual) Nucleated RBC % Seg Neutrophils # Seg Neutrophils # Man Lymphocytes # (Manual) Monocytes # (Manual) Eosinophils # (Manual) Basophils # (Manual) PT INR Fibrinogen dRVVT Confirm Interp Factor V Activity POC ABG pH POC ABG pCO2 POC ABG pO2 ABG pO2 ABG HCO3 ABG Base Excess ABG Hemoglobin Oxyhemoglobin Sodium Potassium Chloride Carbon Dioxide BUN Creatinine Glucose POC Glucose 146 H 157 H 124 H Lactic Acid Calcium Ionized Calcium Phosphorus Magnesium Direct Bilirubin AST ALT Alkaline Phosphatase Lactate Dehydrogenase Troponin T C-Reactive Protein Total Protein Albumin Prealbumin Triglycerides Cholesterol LDL Cholesterol Direct HDL Cholesterol 25-OH Vitamin D Total PTH Intact Urine pH Urine WBC (Auto) Urine Creatinine Urine Total Protein Fluid Total Protein Vancomycin Trough Rheumatoid Factor Complement C4 Miscellaneous Test Crossmatch 12/03/16 12/04/16 12/04/16 23:41 04:00 04:45 WBC RBC Hgb Hct MCV MCH MCHC RDW Plt Count Lymph % (Auto) [place] % (Auto) Lymph # [place] # Baso # Seg Neutrophils % Seg Neuts % (Manual) Lymphocytes % (Manual) Monocytes % (Manual) Eosinophils % (Manual) Basophils % (Manual) Nucleated RBC % Seg Neutrophils # Seg Neutrophils # Man Lymphocytes # (Manual) Monocytes # (Manual) Eosinophils # (Manual) Basophils # (Manual) PT INR Fibrinogen dRVVT Confirm Interp Factor V Activity POC ABG pH POC ABG pCO2 POC ABG pO2 ABG pO2 ABG HCO3 ABG Base Excess ABG Hemoglobin Oxyhemoglobin Sodium Potassium Chloride Carbon Dioxide BUN 76 H Creatinine 1.6 H Glucose POC Glucose 130 H 136 H Lactic Acid Calcium Ionized Calcium Phosphorus Magnesium Direct Bilirubin AST ALT Alkaline Phosphatase 155 H Lactate Dehydrogenase Troponin T C-Reactive Protein Total Protein 5.5 L Albumin 1.5 L Prealbumin Triglycerides Cholesterol LDL Cholesterol Direct HDL Cholesterol 25-OH Vitamin D Total PTH Intact Urine pH Urine WBC (Auto) Urine Creatinine Urine Total Protein Fluid Total Protein Vancomycin Trough Rheumatoid Factor Complement C4 Miscellaneous Test Crossmatch 12/04/16 12/04/16 12/05/16 12:08 17:23 00:10 WBC RBC Hgb Hct MCV MCH MCHC RDW Plt Count Lymph % (Auto) [place] % (Auto) Lymph # [place] # Baso # Seg Neutrophils % Seg Neuts % (Manual) Lymphocytes % (Manual) Monocytes % (Manual) Eosinophils % (Manual) Basophils % (Manual) Nucleated RBC % Seg Neutrophils # Seg Neutrophils # Man Lymphocytes # (Manual) Monocytes # (Manual) Eosinophils # (Manual) Basophils # (Manual) PT INR Fibrinogen dRVVT Confirm Interp Factor V Activity POC ABG pH POC ABG pCO2 POC ABG pO2 ABG pO2 ABG HCO3 ABG Base Excess ABG Hemoglobin Oxyhemoglobin Sodium Potassium Chloride Carbon Dioxide BUN Creatinine Glucose POC Glucose 114 H 129 H 124 H Lactic Acid Calcium Ionized Calcium Phosphorus Magnesium Direct Bilirubin AST ALT Alkaline Phosphatase Lactate Dehydrogenase Troponin T C-Reactive Protein Total Protein Albumin Prealbumin Triglycerides Cholesterol LDL Cholesterol Direct HDL Cholesterol 25-OH Vitamin D Total PTH Intact Urine pH Urine WBC (Auto) Urine Creatinine Urine Total Protein Fluid Total Protein Vancomycin Trough Rheumatoid Factor Complement C4 Miscellaneous Test Crossmatch 12/05/16 12/05/16 12/05/16 05:00 05:00 05:18 WBC RBC Hgb Hct MCV MCH MCHC RDW Plt Count Lymph % (Auto) [place] % (Auto) Lymph # [place] # Baso # Seg Neutrophils % Seg Neuts % (Manual) Lymphocytes % (Manual) Monocytes % (Manual) Eosinophils % (Manual) Basophils % (Manual) Nucleated RBC % Seg Neutrophils # Seg Neutrophils # Man Lymphocytes # (Manual) Monocytes # (Manual) Eosinophils # (Manual) Basophils # (Manual) PT INR Fibrinogen dRVVT Confirm Interp Factor V Activity POC ABG pH POC ABG pCO2 POC ABG pO2 ABG pO2 ABG HCO3 ABG Base Excess ABG Hemoglobin Oxyhemoglobin Sodium Potassium Chloride Carbon Dioxide 21 L BUN 85 H Creatinine 1.9 H Glucose 131 H POC Glucose 154 H Lactic Acid Calcium Ionized Calcium Phosphorus Magnesium Direct Bilirubin AST ALT Alkaline Phosphatase Lactate Dehydrogenase Troponin T C-Reactive Protein 19.30 H Total Protein Albumin Prealbumin Triglycerides Cholesterol LDL Cholesterol Direct HDL Cholesterol 25-OH Vitamin D Total PTH Intact Urine pH Urine WBC (Auto) Urine Creatinine Urine Total Protein Fluid Total Protein Vancomycin Trough Rheumatoid Factor Complement C4 Miscellaneous Test Crossmatch 12/05/16 12/05/16 12/05/16 11:43 17:46 23:25 WBC RBC Hgb Hct MCV MCH MCHC RDW Plt Count Lymph % (Auto) [place] % (Auto) Lymph # [place] # Baso # Seg Neutrophils % Seg Neuts % (Manual) Lymphocytes % (Manual) Monocytes % (Manual) Eosinophils % (Manual) Basophils % (Manual) Nucleated RBC % Seg Neutrophils # Seg Neutrophils # Man Lymphocytes # (Manual) Monocytes # (Manual) Eosinophils # (Manual) Basophils # (Manual) PT INR Fibrinogen dRVVT Confirm Interp Factor V Activity POC ABG pH POC ABG pCO2 POC ABG pO2 ABG pO2 ABG HCO3 ABG Base Excess ABG Hemoglobin Oxyhemoglobin Sodium Potassium Chloride Carbon Dioxide BUN Creatinine Glucose POC Glucose 117 H 113 H 111 H Lactic Acid Calcium Ionized Calcium Phosphorus Magnesium Direct Bilirubin AST ALT Alkaline Phosphatase Lactate Dehydrogenase Troponin T C-Reactive Protein Total Protein Albumin Prealbumin Triglycerides Cholesterol LDL Cholesterol Direct HDL Cholesterol 25-OH Vitamin D Total PTH Intact Urine pH Urine WBC (Auto) Urine Creatinine Urine Total Protein Fluid Total Protein Vancomycin Trough Rheumatoid Factor Complement C4 Miscellaneous Test Crossmatch 12/05/16 12/06/16 12/06/16 Unknown 04:58 06:00 WBC RBC Hgb Hct MCV MCH MCHC RDW Plt Count Lymph % (Auto) [place] % (Auto) Lymph # [place] # Baso # Seg Neutrophils % Seg Neuts % (Manual) Lymphocytes % (Manual) Monocytes % (Manual) Eosinophils % (Manual) Basophils % (Manual) Nucleated RBC % Seg Neutrophils # Seg Neutrophils # Man Lymphocytes # (Manual) Monocytes # (Manual) Eosinophils # (Manual) Basophils # (Manual) PT INR Fibrinogen dRVVT Confirm Interp Factor V Activity POC ABG pH POC ABG pCO2 POC ABG pO2 ABG pO2 75.2 L ABG HCO3 ABG Base Excess -3.4 L ABG Hemoglobin 7.4 L Oxyhemoglobin 94.5 L Sodium Potassium Chloride Carbon Dioxide 20 L BUN 99 H Creatinine 2.1 H Glucose 126 H POC Glucose 145 H Lactic Acid Calcium Ionized Calcium Phosphorus 4.80 H Magnesium Direct Bilirubin AST ALT Alkaline Phosphatase Lactate Dehydrogenase Troponin T C-Reactive Protein Total Protein Albumin Prealbumin Triglycerides Cholesterol LDL Cholesterol Direct HDL Cholesterol 25-OH Vitamin D Total PTH Intact Urine pH Urine WBC (Auto) Urine Creatinine Urine Total Protein Fluid Total Protein Vancomycin Trough Rheumatoid Factor Complement C4 Miscellaneous Test Crossmatch 12/06/16 12/06/16 12/06/16 06:46 11:54 17:55 WBC RBC Hgb 8.3 L Hct 26.4 L MCV MCH MCHC RDW Plt Count Lymph % (Auto) [place] % (Auto) Lymph # [place] # Baso # Seg Neutrophils % Seg Neuts % (Manual) Lymphocytes % (Manual) Monocytes % (Manual) Eosinophils % (Manual) Basophils % (Manual) Nucleated RBC % Seg Neutrophils # Seg Neutrophils # Man Lymphocytes # (Manual) Monocytes # (Manual) Eosinophils # (Manual) Basophils # (Manual) PT INR Fibrinogen dRVVT Confirm Interp Factor V Activity POC ABG pH POC ABG pCO2 POC ABG pO2 ABG pO2 ABG HCO3 ABG Base Excess ABG Hemoglobin Oxyhemoglobin Sodium Potassium Chloride Carbon Dioxide BUN Creatinine Glucose POC Glucose 126 H 157 H Lactic Acid Calcium Ionized Calcium Phosphorus Magnesium Direct Bilirubin AST ALT Alkaline Phosphatase Lactate Dehydrogenase Troponin T C-Reactive Protein Total Protein Albumin Prealbumin Triglycerides Cholesterol LDL Cholesterol Direct HDL Cholesterol 25-OH Vitamin D Total PTH Intact Urine pH Urine WBC (Auto) Urine Creatinine Urine Total Protein Fluid Total Protein Vancomycin Trough Rheumatoid Factor Complement C4 Miscellaneous Test Crossmatch 12/06/16 12/07/16 12/07/16 23:59 05:34 06:30 WBC RBC Hgb Hct MCV MCH MCHC RDW Plt Count Lymph % (Auto) [place] % (Auto) Lymph # [place] # Baso # Seg Neutrophils % Seg Neuts % (Manual) Lymphocytes % (Manual) Monocytes % (Manual) Eosinophils % (Manual) Basophils % (Manual) Nucleated RBC % Seg Neutrophils # Seg Neutrophils # Man Lymphocytes # (Manual) Monocytes # (Manual) Eosinophils # (Manual) Basophils # (Manual) PT INR Fibrinogen dRVVT Confirm Interp Factor V Activity POC ABG pH POC ABG pCO2 POC ABG pO2 ABG pO2 ABG HCO3 ABG Base Excess ABG Hemoglobin Oxyhemoglobin Sodium Potassium Chloride Carbon Dioxide BUN 67 H Creatinine 1.4 H Glucose 126 H POC Glucose 129 H 129 H Lactic Acid Calcium Ionized Calcium Phosphorus Magnesium Direct Bilirubin AST ALT Alkaline Phosphatase Lactate Dehydrogenase Troponin T C-Reactive Protein Total Protein Albumin Prealbumin Triglycerides Cholesterol LDL Cholesterol Direct HDL Cholesterol 25-OH Vitamin D Total PTH Intact Urine pH Urine WBC (Auto) Urine Creatinine Urine Total Protein Fluid Total Protein Vancomycin Trough Rheumatoid Factor Complement C4 Miscellaneous Test Crossmatch 12/07/16 12/07/16 12/07/16 06:30 08:00 09:45 WBC 18.8 H RBC 2.52 L Hgb 6.9 L 6.8 L Hct 21.2 L 21.1 L MCV MCH 27 L MCHC RDW 18.0 H Plt Count Lymph % (Auto) [place] % (Auto) 9.9 H Lymph # [place] # 1.9 H Baso # Seg Neutrophils % 71.8 H Seg Neuts % (Manual) Lymphocytes % (Manual) Monocytes % (Manual) Eosinophils % (Manual) Basophils % (Manual) Nucleated RBC % Seg Neutrophils # 13.5 H Seg Neutrophils # Man Lymphocytes # (Manual) Monocytes # (Manual) Eosinophils # (Manual) Basophils # (Manual) PT INR Fibrinogen dRVVT Confirm Interp Factor V Activity POC ABG pH POC ABG pCO2 POC ABG pO2 ABG pO2 ABG HCO3 ABG Base Excess ABG Hemoglobin Oxyhemoglobin Sodium Potassium Chloride Carbon Dioxide BUN Creatinine Glucose POC Glucose Lactic Acid Calcium Ionized Calcium Phosphorus Magnesium Direct Bilirubin AST ALT Alkaline Phosphatase Lactate Dehydrogenase Troponin T C-Reactive Protein Total Protein Albumin Prealbumin Triglycerides Cholesterol LDL Cholesterol Direct HDL Cholesterol 25-OH Vitamin D Total PTH Intact Urine pH Urine WBC (Auto) Urine Creatinine Urine Total Protein Fluid Total Protein Vancomycin Trough Rheumatoid Factor Complement C4 Miscellaneous Test Crossmatch See Detail 12/07/16 12/07/16 12/07/16 11:44 18:19 23:59 WBC RBC Hgb Hct MCV MCH MCHC RDW Plt Count Lymph % (Auto) [place] % (Auto) Lymph # [place] # Baso # Seg Neutrophils % Seg Neuts % (Manual) Lymphocytes % (Manual) Monocytes % (Manual) Eosinophils % (Manual) Basophils % (Manual) Nucleated RBC % Seg Neutrophils # Seg Neutrophils # Man Lymphocytes # (Manual) Monocytes # (Manual) Eosinophils # (Manual) Basophils # (Manual) PT INR Fibrinogen dRVVT Confirm Interp Factor V Activity POC ABG pH POC ABG pCO2 POC ABG pO2 ABG pO2 ABG HCO3 ABG Base Excess ABG Hemoglobin Oxyhemoglobin Sodium Potassium Chloride Carbon Dioxide BUN Creatinine Glucose POC Glucose 137 H 138 H 133 H Lactic Acid Calcium Ionized Calcium Phosphorus Magnesium Direct Bilirubin AST ALT Alkaline Phosphatase Lactate Dehydrogenase Troponin T C-Reactive Protein Total Protein Albumin Prealbumin Triglycerides Cholesterol LDL Cholesterol Direct HDL Cholesterol 25-OH Vitamin D Total PTH Intact Urine pH Urine WBC (Auto) Urine Creatinine Urine Total Protein Fluid Total Protein Vancomycin Trough Rheumatoid Factor Complement C4 Miscellaneous Test Crossmatch 12/08/16 12/08/16 12/08/16 05:25 05:30 05:30 WBC 23.8 H RBC 2.88 L Hgb 8.1 L Hct 24.3 L MCV MCH MCHC RDW 16.7 H Plt Count Lymph % (Auto) [place] % (Auto) Lymph # [place] # Baso # Seg Neutrophils % Seg Neuts % (Manual) 76.0 H Lymphocytes % (Manual) 9.0 L Monocytes % (Manual) 9.0 H Eosinophils % (Manual) Basophils % (Manual) Nucleated RBC % Seg Neutrophils # Seg Neutrophils # Man 18.1 H Lymphocytes # (Manual) Monocytes # (Manual) 2.1 H Eosinophils # (Manual) Basophils # (Manual) PT INR Fibrinogen dRVVT Confirm Interp Factor V Activity POC ABG pH POC ABG pCO2 POC ABG pO2 ABG pO2 ABG HCO3 ABG Base Excess ABG Hemoglobin Oxyhemoglobin Sodium Potassium Chloride Carbon Dioxide 21 L BUN 76 H Creatinine 1.6 H Glucose 133 H POC Glucose 177 H Lactic Acid Calcium Ionized Calcium Phosphorus Magnesium Direct Bilirubin AST ALT Alkaline Phosphatase Lactate Dehydrogenase Troponin T C-Reactive Protein Total Protein Albumin Prealbumin Triglycerides Cholesterol LDL Cholesterol Direct HDL Cholesterol 25-OH Vitamin D Total PTH Intact Urine pH Urine WBC (Auto) Urine Creatinine Urine Total Protein Fluid Total Protein Vancomycin Trough Rheumatoid Factor Complement C4 Miscellaneous Test Crossmatch 12/08/16 12/08/16 12/09/16 11:45 18:00 00:00 WBC RBC Hgb Hct MCV MCH MCHC RDW Plt Count Lymph % (Auto) [place] % (Auto) Lymph # [place] # Baso # Seg Neutrophils % Seg Neuts % (Manual) Lymphocytes % (Manual) Monocytes % (Manual) Eosinophils % (Manual) Basophils % (Manual) Nucleated RBC % Seg Neutrophils # Seg Neutrophils # Man Lymphocytes # (Manual) Monocytes # (Manual) Eosinophils # (Manual) Basophils # (Manual) PT INR Fibrinogen dRVVT Confirm Interp Factor V Activity POC ABG pH POC ABG pCO2 POC ABG pO2 ABG pO2 ABG HCO3 ABG Base Excess ABG Hemoglobin Oxyhemoglobin Sodium Potassium Chloride Carbon Dioxide BUN Creatinine Glucose POC Glucose 163 H 123 H 137 H Lactic Acid Calcium Ionized Calcium Phosphorus Magnesium Direct Bilirubin AST ALT Alkaline Phosphatase Lactate Dehydrogenase Troponin T C-Reactive Protein Total Protein Albumin Prealbumin Triglycerides Cholesterol LDL Cholesterol Direct HDL Cholesterol 25-OH Vitamin D Total PTH Intact Urine pH Urine WBC (Auto) Urine Creatinine Urine Total Protein Fluid Total Protein Vancomycin Trough Rheumatoid Factor Complement C4 Miscellaneous Test Crossmatch 12/09/16 12/09/16 12/09/16 05:34 06:00 06:00 WBC 15.5 H RBC 2.87 L Hgb 8.0 L Hct 24.2 L MCV MCH MCHC RDW 17.2 H Plt Count Lymph % (Auto) [place] % (Auto) 11.6 H Lymph # [place] # 1.8 H Baso # Seg Neutrophils % 70.8 H Seg Neuts % (Manual) Lymphocytes % (Manual) Monocytes % (Manual) Eosinophils % (Manual) Basophils % (Manual) Nucleated RBC % Seg Neutrophils # 11.0 H Seg Neutrophils # Man Lymphocytes # (Manual) Monocytes # (Manual) Eosinophils # (Manual) Basophils # (Manual) PT INR Fibrinogen dRVVT Confirm Interp Factor V Activity POC ABG pH POC ABG pCO2 POC ABG pO2 ABG pO2 ABG HCO3 ABG Base Excess ABG Hemoglobin Oxyhemoglobin Sodium Potassium Chloride Carbon Dioxide BUN 51 H Creatinine Glucose 117 H POC Glucose 136 H Lactic Acid Calcium Ionized Calcium Phosphorus Magnesium Direct Bilirubin AST ALT Alkaline Phosphatase Lactate Dehydrogenase Troponin T C-Reactive Protein Total Protein Albumin Prealbumin Triglycerides Cholesterol LDL Cholesterol Direct HDL Cholesterol 25-OH Vitamin D Total PTH Intact Urine pH Urine WBC (Auto) Urine Creatinine Urine Total Protein Fluid Total Protein Vancomycin Trough Rheumatoid Factor Complement C4 Miscellaneous Test Crossmatch 12/09/16 12/09/16 12/09/16 12:29 17:52 23:10 WBC RBC Hgb Hct MCV MCH MCHC RDW Plt Count Lymph % (Auto) [place] % (Auto) Lymph # [place] # Baso # Seg Neutrophils % Seg Neuts % (Manual) Lymphocytes % (Manual) Monocytes % (Manual) Eosinophils % (Manual) Basophils % (Manual) Nucleated RBC % Seg Neutrophils # Seg Neutrophils # Man Lymphocytes # (Manual) Monocytes # (Manual) Eosinophils # (Manual) Basophils # (Manual) PT INR Fibrinogen dRVVT Confirm Interp Factor V Activity POC ABG pH POC ABG pCO2 POC ABG pO2 ABG pO2 ABG HCO3 ABG Base Excess ABG Hemoglobin Oxyhemoglobin Sodium Potassium Chloride Carbon Dioxide BUN Creatinine Glucose POC Glucose 139 H 140 H 129 H Lactic Acid Calcium Ionized Calcium Phosphorus Magnesium Direct Bilirubin AST ALT Alkaline Phosphatase Lactate Dehydrogenase Troponin T C-Reactive Protein Total Protein Albumin Prealbumin Triglycerides Cholesterol LDL Cholesterol Direct HDL Cholesterol 25-OH Vitamin D Total PTH Intact Urine pH Urine WBC (Auto) Urine Creatinine Urine Total Protein Fluid Total Protein Vancomycin Trough Rheumatoid Factor Complement C4 Miscellaneous Test Crossmatch 12/10/16 12/10/16 12/10/16 05:00 05:00 06:54 WBC 15.7 H RBC 2.87 L Hgb 8.2 L Hct 24.4 L MCV MCH MCHC RDW 17.2 H Plt Count Lymph % (Auto) [place] % (Auto) 8.3 H Lymph # [place] # 1.3 H Baso # Seg Neutrophils % 72.8 H Seg Neuts % (Manual) Lymphocytes % (Manual) Monocytes % (Manual) Eosinophils % (Manual) Basophils % (Manual) Nucleated RBC % Seg Neutrophils # 11.4 H Seg Neutrophils # Man Lymphocytes # (Manual) Monocytes # (Manual) Eosinophils # (Manual) Basophils # (Manual) PT INR Fibrinogen dRVVT Confirm Interp Factor V Activity POC ABG pH POC ABG pCO2 POC ABG pO2 ABG pO2 ABG HCO3 ABG Base Excess ABG Hemoglobin Oxyhemoglobin Sodium Potassium Chloride Carbon Dioxide BUN 64 H Creatinine 1.4 H Glucose 134 H POC Glucose 154 H Lactic Acid Calcium Ionized Calcium Phosphorus Magnesium Direct Bilirubin AST ALT Alkaline Phosphatase Lactate Dehydrogenase Troponin T C-Reactive Protein Total Protein Albumin Prealbumin Triglycerides Cholesterol LDL Cholesterol Direct HDL Cholesterol 25-OH Vitamin D Total PTH Intact Urine pH Urine WBC (Auto) Urine Creatinine Urine Total Protein Fluid Total Protein Vancomycin Trough Rheumatoid Factor Complement C4 Miscellaneous Test Crossmatch 12/10/16 12/10/16 12/10/16 11:58 17:29 23:52 WBC RBC Hgb Hct MCV MCH MCHC RDW Plt Count Lymph % (Auto) [place] % (Auto) Lymph # [place] # Baso # Seg Neutrophils % Seg Neuts % (Manual) Lymphocytes % (Manual) Monocytes % (Manual) Eosinophils % (Manual) Basophils % (Manual) Nucleated RBC % Seg Neutrophils # Seg Neutrophils # Man Lymphocytes # (Manual) Monocytes # (Manual) Eosinophils # (Manual) Basophils # (Manual) PT INR Fibrinogen dRVVT Confirm Interp Factor V Activity POC ABG pH POC ABG pCO2 POC ABG pO2 ABG pO2 ABG HCO3 ABG Base Excess ABG Hemoglobin Oxyhemoglobin Sodium Potassium Chloride Carbon Dioxide BUN Creatinine Glucose POC Glucose 144 H 163 H 125 H Lactic Acid Calcium Ionized Calcium Phosphorus Magnesium Direct Bilirubin AST ALT Alkaline Phosphatase Lactate Dehydrogenase Troponin T C-Reactive Protein Total Protein Albumin Prealbumin Triglycerides Cholesterol LDL Cholesterol Direct HDL Cholesterol 25-OH Vitamin D Total PTH Intact Urine pH Urine WBC (Auto) Urine Creatinine Urine Total Protein Fluid Total Protein Vancomycin Trough Rheumatoid Factor Complement C4 Miscellaneous Test Crossmatch 12/11/16 12/11/16 12/11/16 05:38 06:30 06:30 WBC 14.4 H RBC 2.76 L Hgb 7.7 L Hct 23.4 L MCV MCH MCHC RDW 17.2 H Plt Count Lymph % (Auto) [place] % (Auto) 8.8 H Lymph # [place] # 1.3 H Baso # Seg Neutrophils % 72.5 H Seg Neuts % (Manual) Lymphocytes % (Manual) Monocytes % (Manual) Eosinophils % (Manual) Basophils % (Manual) Nucleated RBC % Seg Neutrophils # 10.5 H Seg Neutrophils # Man Lymphocytes # (Manual) Monocytes # (Manual) Eosinophils # (Manual) Basophils # (Manual) PT INR Fibrinogen dRVVT Confirm Interp Factor V Activity POC ABG pH POC ABG pCO2 POC ABG pO2 ABG pO2 ABG HCO3 ABG Base Excess ABG Hemoglobin Oxyhemoglobin Sodium Potassium Chloride Carbon Dioxide BUN 43 H Creatinine Glucose 124 H POC Glucose 141 H Lactic Acid Calcium 8.3 L Ionized Calcium Phosphorus Magnesium 1.60 L Direct Bilirubin AST ALT Alkaline Phosphatase Lactate Dehydrogenase Troponin T C-Reactive Protein Total Protein Albumin Prealbumin Triglycerides Cholesterol LDL Cholesterol Direct HDL Cholesterol 25-OH Vitamin D Total PTH Intact Urine pH Urine WBC (Auto) Urine Creatinine Urine Total Protein Fluid Total Protein Vancomycin Trough Rheumatoid Factor Complement C4 Miscellaneous Test Crossmatch 12/11/16 12/11/16 12/11/16 11:15 17:59 23:48 WBC RBC Hgb Hct MCV MCH MCHC RDW Plt Count Lymph % (Auto) [place] % (Auto) Lymph # [place] # Baso # Seg Neutrophils % Seg Neuts % (Manual) Lymphocytes % (Manual) Monocytes % (Manual) Eosinophils % (Manual) Basophils % (Manual) Nucleated RBC % Seg Neutrophils # Seg Neutrophils # Man Lymphocytes # (Manual) Monocytes # (Manual) Eosinophils # (Manual) Basophils # (Manual) PT INR Fibrinogen dRVVT Confirm Interp Factor V Activity POC ABG pH POC ABG pCO2 POC ABG pO2 ABG pO2 ABG HCO3 ABG Base Excess ABG Hemoglobin Oxyhemoglobin Sodium Potassium Chloride Carbon Dioxide BUN Creatinine Glucose POC Glucose 188 H 106 H 119 H Lactic Acid Calcium Ionized Calcium Phosphorus Magnesium Direct Bilirubin AST ALT Alkaline Phosphatase Lactate Dehydrogenase Troponin T C-Reactive Protein Total Protein Albumin Prealbumin Triglycerides Cholesterol LDL Cholesterol Direct HDL Cholesterol 25-OH Vitamin D Total PTH Intact Urine pH Urine WBC (Auto) Urine Creatinine Urine Total Protein Fluid Total Protein Vancomycin Trough Rheumatoid Factor Complement C4 Miscellaneous Test Crossmatch 12/12/16 12/12/16 12/12/16 05:00 06:01 12:20 WBC 16.7 H RBC 2.87 L Hgb 8.0 L Hct 24.2 L MCV MCH MCHC RDW 17.6 H Plt Count Lymph % (Auto) [place] % (Auto) Lymph # [place] # 1.2 H Baso # Seg Neutrophils % 75.3 H Seg Neuts % (Manual) Lymphocytes % (Manual) Monocytes % (Manual) Eosinophils % (Manual) Basophils % (Manual) Nucleated RBC % Seg Neutrophils # 12.6 H Seg Neutrophils # Man Lymphocytes # (Manual) Monocytes # (Manual) Eosinophils # (Manual) Basophils # (Manual) PT INR Fibrinogen dRVVT Confirm Interp Factor V Activity POC ABG pH POC ABG pCO2 POC ABG pO2 ABG pO2 ABG HCO3 ABG Base Excess ABG Hemoglobin Oxyhemoglobin Sodium Potassium Chloride Carbon Dioxide BUN Creatinine Glucose POC Glucose 134 H 149 H Lactic Acid Calcium Ionized Calcium Phosphorus Magnesium Direct Bilirubin AST ALT Alkaline Phosphatase Lactate Dehydrogenase Troponin T C-Reactive Protein Total Protein Albumin Prealbumin Triglycerides Cholesterol LDL Cholesterol Direct HDL Cholesterol 25-OH Vitamin D Total PTH Intact Urine pH Urine WBC (Auto) Urine Creatinine Urine Total Protein Fluid Total Protein Vancomycin Trough Rheumatoid Factor Complement C4 Miscellaneous Test Crossmatch 12/12/16 12/12/16 12/12/16 17:38 23:01 Unknown WBC RBC Hgb Hct MCV MCH MCHC RDW Plt Count Lymph % (Auto) [place] % (Auto) Lymph # [place] # Baso # Seg Neutrophils % Seg Neuts % (Manual) Lymphocytes % (Manual) Monocytes % (Manual) Eosinophils % (Manual) Basophils % (Manual) Nucleated RBC % Seg Neutrophils # Seg Neutrophils # Man Lymphocytes # (Manual) Monocytes # (Manual) Eosinophils # (Manual) Basophils # (Manual) PT INR Fibrinogen dRVVT Confirm Interp Factor V Activity POC ABG pH POC ABG pCO2 POC ABG pO2 ABG pO2 ABG HCO3 ABG Base Excess ABG Hemoglobin Oxyhemoglobin Sodium Potassium Chloride Carbon Dioxide BUN 60 H Creatinine 1.3 H Glucose 126 H POC Glucose 127 H 144 H Lactic Acid Calcium Ionized Calcium Phosphorus Magnesium Direct Bilirubin AST ALT Alkaline Phosphatase Lactate Dehydrogenase Troponin T C-Reactive Protein Total Protein Albumin Prealbumin Triglycerides Cholesterol LDL Cholesterol Direct HDL Cholesterol 25-OH Vitamin D Total PTH Intact Urine pH Urine WBC (Auto) Urine Creatinine Urine Total Protein Fluid Total Protein Vancomycin Trough Rheumatoid Factor Complement C4 Miscellaneous Test Crossmatch 12/13/16 12/13/16 12/13/16 04:00 04:00 05:19 WBC 18.7 H RBC 2.89 L Hgb 8.3 L Hct 24.6 L MCV MCH MCHC RDW 17.5 H Plt Count Lymph % (Auto) [place] % (Auto) Lymph # [place] # 1.3 H Baso # Seg Neutrophils % 71.5 H Seg Neuts % (Manual) Lymphocytes % (Manual) Monocytes % (Manual) Eosinophils % (Manual) Basophils % (Manual) Nucleated RBC % Seg Neutrophils # 13.4 H Seg Neutrophils # Man Lymphocytes # (Manual) Monocytes # (Manual) Eosinophils # (Manual) Basophils # (Manual) PT INR Fibrinogen dRVVT Confirm Interp Factor V Activity POC ABG pH POC ABG pCO2 POC ABG pO2 ABG pO2 ABG HCO3 ABG Base Excess ABG Hemoglobin Oxyhemoglobin Sodium Potassium Chloride Carbon Dioxide BUN 73 H Creatinine 1.5 H Glucose 141 H POC Glucose 171 H Lactic Acid Calcium Ionized Calcium Phosphorus Magnesium Direct Bilirubin AST ALT Alkaline Phosphatase Lactate Dehydrogenase Troponin T C-Reactive Protein Total Protein Albumin Prealbumin Triglycerides Cholesterol LDL Cholesterol Direct HDL Cholesterol 25-OH Vitamin D Total PTH Intact Urine pH Urine WBC (Auto) Urine Creatinine Urine Total Protein Fluid Total Protein Vancomycin Trough Rheumatoid Factor Complement C4 Miscellaneous Test Crossmatch 12/13/16 12/13/16 12/14/16 12:28 16:48 00:01 WBC RBC Hgb Hct MCV MCH MCHC RDW Plt Count Lymph % (Auto) [place] % (Auto) Lymph # [place] # Baso # Seg Neutrophils % Seg Neuts % (Manual) Lymphocytes % (Manual) Monocytes % (Manual) Eosinophils % (Manual) Basophils % (Manual) Nucleated RBC % Seg Neutrophils # Seg Neutrophils # Man Lymphocytes # (Manual) Monocytes # (Manual) Eosinophils # (Manual) Basophils # (Manual) PT INR Fibrinogen dRVVT Confirm Interp Factor V Activity POC ABG pH POC ABG pCO2 POC ABG pO2 ABG pO2 ABG HCO3 ABG Base Excess ABG Hemoglobin Oxyhemoglobin Sodium Potassium Chloride Carbon Dioxide BUN Creatinine Glucose POC Glucose 206 H 173 H 139 H Lactic Acid Calcium Ionized Calcium Phosphorus Magnesium Direct Bilirubin AST ALT Alkaline Phosphatase Lactate Dehydrogenase Troponin T C-Reactive Protein Total Protein Albumin Prealbumin Triglycerides Cholesterol LDL Cholesterol Direct HDL Cholesterol 25-OH Vitamin D Total PTH Intact Urine pH Urine WBC (Auto) Urine Creatinine Urine Total Protein Fluid Total Protein Vancomycin Trough Rheumatoid Factor Complement C4 Miscellaneous Test Crossmatch 12/14/16 12/14/16 12/14/16 05:16 06:10 11:17 WBC RBC Hgb Hct MCV MCH MCHC RDW Plt Count Lymph % (Auto) [place] % (Auto) Lymph # [place] # Baso # Seg Neutrophils % Seg Neuts % (Manual) Lymphocytes % (Manual) Monocytes % (Manual) Eosinophils % (Manual) Basophils % (Manual) Nucleated RBC % Seg Neutrophils # Seg Neutrophils # Man Lymphocytes # (Manual) Monocytes # (Manual) Eosinophils # (Manual) Basophils # (Manual) PT INR Fibrinogen dRVVT Confirm Interp Factor V Activity POC ABG pH POC ABG pCO2 POC ABG pO2 ABG pO2 ABG HCO3 ABG Base Excess ABG Hemoglobin Oxyhemoglobin Sodium Potassium Chloride Carbon Dioxide BUN 57 H Creatinine 1.4 H Glucose 135 H POC Glucose 158 H 137 H Lactic Acid Calcium Ionized Calcium Phosphorus Magnesium Direct Bilirubin AST ALT Alkaline Phosphatase Lactate Dehydrogenase Troponin T C-Reactive Protein Total Protein Albumin Prealbumin Triglycerides Cholesterol LDL Cholesterol Direct HDL Cholesterol 25-OH Vitamin D Total PTH Intact Urine pH Urine WBC (Auto) Urine Creatinine Urine Total Protein Fluid Total Protein Vancomycin Trough Rheumatoid Factor Complement C4 Miscellaneous Test Crossmatch 12/14/16 12/14/16 12/15/16 17:52 23:27 04:00 WBC RBC Hgb Hct MCV MCH MCHC RDW Plt Count Lymph % (Auto) [place] % (Auto) Lymph # [place] # Baso # Seg Neutrophils % Seg Neuts % (Manual) Lymphocytes % (Manual) Monocytes % (Manual) Eosinophils % (Manual) Basophils % (Manual) Nucleated RBC % Seg Neutrophils # Seg Neutrophils # Man Lymphocytes # (Manual) Monocytes # (Manual) Eosinophils # (Manual) Basophils # (Manual) PT INR Fibrinogen dRVVT Confirm Interp Factor V Activity POC ABG pH POC ABG pCO2 POC ABG pO2 ABG pO2 ABG HCO3 ABG Base Excess ABG Hemoglobin Oxyhemoglobin Sodium Potassium Chloride 97.9 L Carbon Dioxide BUN 75 H Creatinine 1.6 H Glucose 122 H POC Glucose 149 H 163 H Lactic Acid Calcium Ionized Calcium Phosphorus 5.20 H Magnesium Direct Bilirubin AST ALT Alkaline Phosphatase Lactate Dehydrogenase Troponin T C-Reactive Protein Total Protein Albumin Prealbumin Triglycerides Cholesterol LDL Cholesterol Direct HDL Cholesterol 25-OH Vitamin D Total PTH Intact Urine pH Urine WBC (Auto) Urine Creatinine Urine Total Protein Fluid Total Protein Vancomycin Trough Rheumatoid Factor Complement C4 Miscellaneous Test Crossmatch 12/15/16 12/15/16 12/15/16 05:50 11:24 17:01 WBC RBC Hgb Hct MCV MCH MCHC RDW Plt Count Lymph % (Auto) [place] % (Auto) Lymph # [place] # Baso # Seg Neutrophils % Seg Neuts % (Manual) Lymphocytes % (Manual) Monocytes % (Manual) Eosinophils % (Manual) Basophils % (Manual) Nucleated RBC % Seg Neutrophils # Seg Neutrophils # Man Lymphocytes # (Manual) Monocytes # (Manual) Eosinophils # (Manual) Basophils # (Manual) PT INR Fibrinogen dRVVT Confirm Interp Factor V Activity POC ABG pH POC ABG pCO2 POC ABG pO2 ABG pO2 ABG HCO3 ABG Base Excess ABG Hemoglobin Oxyhemoglobin Sodium Potassium Chloride Carbon Dioxide BUN Creatinine Glucose POC Glucose 150 H 146 H 167 H Lactic Acid Calcium Ionized Calcium Phosphorus Magnesium Direct Bilirubin AST ALT Alkaline Phosphatase Lactate Dehydrogenase Troponin T C-Reactive Protein Total Protein Albumin Prealbumin Triglycerides Cholesterol LDL Cholesterol Direct HDL Cholesterol 25-OH Vitamin D Total PTH Intact Urine pH Urine WBC (Auto) Urine Creatinine Urine Total Protein Fluid Total Protein Vancomycin Trough Rheumatoid Factor Complement C4 Miscellaneous Test Crossmatch 12/15/16 12/16/16 12/16/16 23:34 05:25 11:24 WBC RBC Hgb Hct MCV MCH MCHC RDW Plt Count Lymph % (Auto) [place] % (Auto) Lymph # [place] # Baso # Seg Neutrophils % Seg Neuts % (Manual) Lymphocytes % (Manual) Monocytes % (Manual) Eosinophils % (Manual) Basophils % (Manual) Nucleated RBC % Seg Neutrophils # Seg Neutrophils # Man Lymphocytes # (Manual) Monocytes # (Manual) Eosinophils # (Manual) Basophils # (Manual) PT INR Fibrinogen dRVVT Confirm Interp Factor V Activity POC ABG pH POC ABG pCO2 POC ABG pO2 ABG pO2 ABG HCO3 ABG Base Excess ABG Hemoglobin Oxyhemoglobin Sodium Potassium Chloride Carbon Dioxide BUN Creatinine Glucose POC Glucose 127 H 139 H 165 H Lactic Acid Calcium Ionized Calcium Phosphorus Magnesium Direct Bilirubin AST ALT Alkaline Phosphatase Lactate Dehydrogenase Troponin T C-Reactive Protein Total Protein Albumin Prealbumin Triglycerides Cholesterol LDL Cholesterol Direct HDL Cholesterol 25-OH Vitamin D Total PTH Intact Urine pH Urine WBC (Auto) Urine Creatinine Urine Total Protein Fluid Total Protein Vancomycin Trough Rheumatoid Factor Complement C4 Miscellaneous Test Crossmatch 12/16/16 12/16/16 12/16/16 15:30 16:25 17:31 WBC 17.8 H RBC 2.38 L Hgb 6.4 L Hct 20.3 L MCV MCH 27 L MCHC RDW 17.4 H Plt Count Lymph % (Auto) [place] % (Auto) Lymph # [place] # Baso # Seg Neutrophils % Seg Neuts % (Manual) Lymphocytes % (Manual) Monocytes % (Manual) 10.0 H Eosinophils % (Manual) Basophils % (Manual) Nucleated RBC % Seg Neutrophils # Seg Neutrophils # Man 8.5 H Lymphocytes # (Manual) Monocytes # (Manual) 1.8 H Eosinophils # (Manual) Basophils # (Manual) PT INR Fibrinogen dRVVT Confirm Interp Factor V Activity POC ABG pH POC ABG pCO2 POC ABG pO2 ABG pO2 ABG HCO3 ABG Base Excess ABG Hemoglobin Oxyhemoglobin Sodium Potassium Chloride Carbon Dioxide BUN Creatinine Glucose POC Glucose 176 H Lactic Acid Calcium Ionized Calcium Phosphorus Magnesium Direct Bilirubin AST ALT Alkaline Phosphatase Lactate Dehydrogenase Troponin T C-Reactive Protein Total Protein Albumin Prealbumin Triglycerides Cholesterol LDL Cholesterol Direct HDL Cholesterol 25-OH Vitamin D Total PTH Intact Urine pH Urine WBC (Auto) Urine Creatinine Urine Total Protein Fluid Total Protein Vancomycin Trough Rheumatoid Factor Complement C4 Miscellaneous Test Crossmatch See Detail 12/17/16 12/17/16 12/17/16 00:14 04:00 05:00 WBC 20.0 H RBC 2.99 L Hgb 8.5 L Hct 25.7 L MCV MCH MCHC RDW 17.2 H Plt Count Lymph % (Auto) [place] % (Auto) Lymph # [place] # Baso # Seg Neutrophils % Seg Neuts % (Manual) Lymphocytes % (Manual) Monocytes % (Manual) Eosinophils % (Manual) Basophils % (Manual) Nucleated RBC % Seg Neutrophils # Seg Neutrophils # Man Lymphocytes # (Manual) Monocytes # (Manual) Eosinophils # (Manual) Basophils # (Manual) PT INR Fibrinogen dRVVT Confirm Interp Factor V Activity POC ABG pH POC ABG pCO2 POC ABG pO2 ABG pO2 ABG HCO3 ABG Base Excess ABG Hemoglobin Oxyhemoglobin Sodium Potassium Chloride 97.7 L Carbon Dioxide BUN 73 H Creatinine 1.7 H Glucose 136 H POC Glucose 148 H Lactic Acid Calcium Ionized Calcium Phosphorus 2.20 L Magnesium 2.70 H Direct Bilirubin AST ALT Alkaline Phosphatase Lactate Dehydrogenase Troponin T C-Reactive Protein Total Protein Albumin Prealbumin Triglycerides Cholesterol LDL Cholesterol Direct HDL Cholesterol 25-OH Vitamin D Total PTH Intact Urine pH Urine WBC (Auto) Urine Creatinine Urine Total Protein Fluid Total Protein Vancomycin Trough Rheumatoid Factor Complement C4 Miscellaneous Test Crossmatch 12/17/16 12/17/16 12/17/16 05:39 12:50 16:32 WBC RBC Hgb Hct MCV MCH MCHC RDW Plt Count Lymph % (Auto) [place] % (Auto) Lymph # [place] # Baso # Seg Neutrophils % Seg Neuts % (Manual) Lymphocytes % (Manual) Monocytes % (Manual) Eosinophils % (Manual) Basophils % (Manual) Nucleated RBC % Seg Neutrophils # Seg Neutrophils # Man Lymphocytes # (Manual) Monocytes # (Manual) Eosinophils # (Manual) Basophils # (Manual) PT INR Fibrinogen dRVVT Confirm Interp Factor V Activity POC ABG pH POC ABG pCO2 POC ABG pO2 ABG pO2 ABG HCO3 ABG Base Excess ABG Hemoglobin Oxyhemoglobin Sodium Potassium Chloride Carbon Dioxide BUN Creatinine Glucose POC Glucose 162 H 146 H 169 H Lactic Acid Calcium Ionized Calcium Phosphorus Magnesium Direct Bilirubin AST ALT Alkaline Phosphatase Lactate Dehydrogenase Troponin T C-Reactive Protein Total Protein Albumin Prealbumin Triglycerides Cholesterol LDL Cholesterol Direct HDL Cholesterol 25-OH Vitamin D Total PTH Intact Urine pH Urine WBC (Auto) Urine Creatinine Urine Total Protein Fluid Total Protein Vancomycin Trough Rheumatoid Factor Complement C4 Miscellaneous Test Crossmatch 12/17/16 12/18/16 12/18/16 23:57 05:00 05:32 WBC RBC Hgb Hct MCV MCH MCHC RDW Plt Count Lymph % (Auto) [place] % (Auto) Lymph # [place] # Baso # Seg Neutrophils % Seg Neuts % (Manual) Lymphocytes % (Manual) Monocytes % (Manual) Eosinophils % (Manual) Basophils % (Manual) Nucleated RBC % Seg Neutrophils # Seg Neutrophils # Man Lymphocytes # (Manual) Monocytes # (Manual) Eosinophils # (Manual) Basophils # (Manual) PT INR Fibrinogen dRVVT Confirm Interp Factor V Activity POC ABG pH POC ABG pCO2 POC ABG pO2 ABG pO2 ABG HCO3 ABG Base Excess ABG Hemoglobin Oxyhemoglobin Sodium Potassium Chloride 97.0 L Carbon Dioxide BUN 63 H Creatinine 1.4 H Glucose 174 H POC Glucose 145 H 201 H Lactic Acid Calcium Ionized Calcium Phosphorus 1.70 L D Magnesium Direct Bilirubin AST ALT Alkaline Phosphatase 257 H Lactate Dehydrogenase Troponin T C-Reactive Protein Total Protein 5.9 L Albumin 1.8 L Prealbumin Triglycerides Cholesterol LDL Cholesterol Direct HDL Cholesterol 25-OH Vitamin D Total PTH Intact Urine pH Urine WBC (Auto) Urine Creatinine Urine Total Protein Fluid Total Protein Vancomycin Trough Rheumatoid Factor Complement C4 Miscellaneous Test Crossmatch 12/18/16 12/18/16 12/18/16 11:43 16:52 23:52 WBC RBC Hgb Hct MCV MCH MCHC RDW Plt Count Lymph % (Auto) [place] % (Auto) Lymph # [place] # Baso # Seg Neutrophils % Seg Neuts % (Manual) Lymphocytes % (Manual) Monocytes % (Manual) Eosinophils % (Manual) Basophils % (Manual) Nucleated RBC % Seg Neutrophils # Seg Neutrophils # Man Lymphocytes # (Manual) Monocytes # (Manual) Eosinophils # (Manual) Basophils # (Manual) PT INR Fibrinogen dRVVT Confirm Interp Factor V Activity POC ABG pH POC ABG pCO2 POC ABG pO2 ABG pO2 ABG HCO3 ABG Base Excess ABG Hemoglobin Oxyhemoglobin Sodium Potassium Chloride Carbon Dioxide BUN Creatinine Glucose POC Glucose 177 H 110 H 162 H Lactic Acid Calcium Ionized Calcium Phosphorus Magnesium Direct Bilirubin AST ALT Alkaline Phosphatase Lactate Dehydrogenase Troponin T C-Reactive Protein Total Protein Albumin Prealbumin Triglycerides Cholesterol LDL Cholesterol Direct HDL Cholesterol 25-OH Vitamin D Total PTH Intact Urine pH Urine WBC (Auto) Urine Creatinine Urine Total Protein Fluid Total Protein Vancomycin Trough Rheumatoid Factor Complement C4 Miscellaneous Test Crossmatch 12/19/16 12/19/16 12/19/16 05:02 05:24 09:30 WBC 20.1 H RBC 2.73 L Hgb 7.6 L Hct 23.6 L MCV MCH MCHC RDW 17.6 H Plt Count Lymph % (Auto) [place] % (Auto) Lymph # [place] # Baso # Seg Neutrophils % Seg Neuts % (Manual) Lymphocytes % (Manual) 13.0 L Monocytes % (Manual) Eosinophils % (Manual) Basophils % (Manual) Nucleated RBC % 1.0 H Seg Neutrophils # Seg Neutrophils # Man 12.9 H Lymphocytes # (Manual) Monocytes # (Manual) 1.4 H Eosinophils # (Manual) Basophils # (Manual) 0.2 H PT INR Fibrinogen dRVVT Confirm Interp Factor V Activity POC ABG pH POC ABG pCO2 POC ABG pO2 ABG pO2 ABG HCO3 ABG Base Excess ABG Hemoglobin Oxyhemoglobin Sodium Potassium Chloride 97.8 L Carbon Dioxide BUN 84 H Creatinine 1.6 H Glucose 133 H POC Glucose 134 H Lactic Acid Calcium Ionized Calcium Phosphorus Magnesium Direct Bilirubin AST ALT Alkaline Phosphatase Lactate Dehydrogenase Troponin T C-Reactive Protein Total Protein Albumin Prealbumin Triglycerides Cholesterol LDL Cholesterol Direct HDL Cholesterol 25-OH Vitamin D Total PTH Intact Urine pH Urine WBC (Auto) Urine Creatinine Urine Total Protein Fluid Total Protein Vancomycin Trough Rheumatoid Factor Complement C4 Miscellaneous Test Crossmatch 12/19/16 12/19/16 12/19/16 09:36 11:12 18:29 WBC RBC Hgb Hct MCV MCH MCHC RDW Plt Count Lymph % (Auto) [place] % (Auto) Lymph # [place] # Baso # Seg Neutrophils % Seg Neuts % (Manual) Lymphocytes % (Manual) Monocytes % (Manual) Eosinophils % (Manual) Basophils % (Manual) Nucleated RBC % Seg Neutrophils # Seg Neutrophils # Man Lymphocytes # (Manual) Monocytes # (Manual) Eosinophils # (Manual) Basophils # (Manual) PT INR Fibrinogen dRVVT Confirm Interp Factor V Activity POC ABG pH 7.503 H POC ABG pCO2 30.1 L POC ABG pO2 ABG pO2 ABG HCO3 ABG Base Excess ABG Hemoglobin Oxyhemoglobin Sodium Potassium Chloride Carbon Dioxide BUN Creatinine Glucose POC Glucose 138 H 156 H Lactic Acid Calcium Ionized Calcium Phosphorus Magnesium Direct Bilirubin AST ALT Alkaline Phosphatase Lactate Dehydrogenase Troponin T C-Reactive Protein Total Protein Albumin Prealbumin Triglycerides Cholesterol LDL Cholesterol Direct HDL Cholesterol 25-OH Vitamin D Total PTH Intact Urine pH Urine WBC (Auto) Urine Creatinine Urine Total Protein Fluid Total Protein Vancomycin Trough Rheumatoid Factor Complement C4 Miscellaneous Test Crossmatch 12/20/16 12/20/16 12/20/16 00:03 06:17 07:07 WBC RBC Hgb Hct MCV MCH MCHC RDW Plt Count Lymph % (Auto) [place] % (Auto) Lymph # [place] # Baso # Seg Neutrophils % Seg Neuts % (Manual) Lymphocytes % (Manual) Monocytes % (Manual) Eosinophils % (Manual) Basophils % (Manual) Nucleated RBC % Seg Neutrophils # Seg Neutrophils # Man Lymphocytes # (Manual) Monocytes # (Manual) Eosinophils # (Manual) Basophils # (Manual) PT INR Fibrinogen dRVVT Confirm Interp Factor V Activity POC ABG pH POC ABG pCO2 POC ABG pO2 ABG pO2 ABG HCO3 ABG Base Excess ABG Hemoglobin Oxyhemoglobin Sodium Potassium Chloride 97.1 L Carbon Dioxide 20 L BUN 97 H Creatinine 1.8 H Glucose 153 H POC Glucose 152 H 175 H Lactic Acid Calcium Ionized Calcium Phosphorus Magnesium Direct Bilirubin AST ALT Alkaline Phosphatase Lactate Dehydrogenase Troponin T C-Reactive Protein Total Protein Albumin Prealbumin Triglycerides Cholesterol LDL Cholesterol Direct HDL Cholesterol 25-OH Vitamin D Total PTH Intact Urine pH Urine WBC (Auto) Urine Creatinine Urine Total Protein Fluid Total Protein Vancomycin Trough Rheumatoid Factor Complement C4 Miscellaneous Test Crossmatch 12/20/16 12/20/16 12/20/16 12:00 17:42 23:53 WBC RBC Hgb Hct MCV MCH MCHC RDW Plt Count Lymph % (Auto) [place] % (Auto) Lymph # [place] # Baso # Seg Neutrophils % Seg Neuts % (Manual) Lymphocytes % (Manual) Monocytes % (Manual) Eosinophils % (Manual) Basophils % (Manual) Nucleated RBC % Seg Neutrophils # Seg Neutrophils # Man Lymphocytes # (Manual) Monocytes # (Manual) Eosinophils # (Manual) Basophils # (Manual) PT INR Fibrinogen dRVVT Confirm Interp Factor V Activity POC ABG pH POC ABG pCO2 POC ABG pO2 ABG pO2 ABG HCO3 ABG Base Excess ABG Hemoglobin Oxyhemoglobin Sodium Potassium Chloride Carbon Dioxide BUN Creatinine Glucose POC Glucose 141 H 156 H 132 H Lactic Acid Calcium Ionized Calcium Phosphorus Magnesium Direct Bilirubin AST ALT Alkaline Phosphatase Lactate Dehydrogenase Troponin T C-Reactive Protein Total Protein Albumin Prealbumin Triglycerides Cholesterol LDL Cholesterol Direct HDL Cholesterol 25-OH Vitamin D Total PTH Intact Urine pH Urine WBC (Auto) Urine Creatinine Urine Total Protein Fluid Total Protein Vancomycin Trough Rheumatoid Factor Complement C4 Miscellaneous Test Crossmatch 12/21/16 12/21/16 12/21/16 05:49 08:50 12:19 WBC RBC Hgb Hct MCV MCH MCHC RDW Plt Count Lymph % (Auto) [place] % (Auto) Lymph # [place] # Baso # Seg Neutrophils % Seg Neuts % (Manual) Lymphocytes % (Manual) Monocytes % (Manual) Eosinophils % (Manual) Basophils % (Manual) Nucleated RBC % Seg Neutrophils # Seg Neutrophils # Man Lymphocytes # (Manual) Monocytes # (Manual) Eosinophils # (Manual) Basophils # (Manual) PT INR Fibrinogen dRVVT Confirm Interp Factor V Activity POC ABG pH POC ABG pCO2 POC ABG pO2 ABG pO2 ABG HCO3 ABG Base Excess ABG Hemoglobin Oxyhemoglobin Sodium Potassium 5.2 H D Chloride Carbon Dioxide BUN 63 H Creatinine Glucose 122 H POC Glucose 132 H 136 H Lactic Acid Calcium 8.3 L Ionized Calcium Phosphorus Magnesium Direct Bilirubin AST ALT Alkaline Phosphatase Lactate Dehydrogenase Troponin T C-Reactive Protein Total Protein Albumin Prealbumin Triglycerides Cholesterol LDL Cholesterol Direct HDL Cholesterol 25-OH Vitamin D Total PTH Intact Urine pH Urine WBC (Auto) Urine Creatinine Urine Total Protein Fluid Total Protein Vancomycin Trough Rheumatoid Factor Complement C4 Miscellaneous Test Crossmatch 12/21/16 12/21/16 12/22/16 17:22 23:58 05:49 WBC RBC Hgb Hct MCV MCH MCHC RDW Plt Count Lymph % (Auto) [place] % (Auto) Lymph # [place] # Baso # Seg Neutrophils % Seg Neuts % (Manual) Lymphocytes % (Manual) Monocytes % (Manual) Eosinophils % (Manual) Basophils % (Manual) Nucleated RBC % Seg Neutrophils # Seg Neutrophils # Man Lymphocytes # (Manual) Monocytes # (Manual) Eosinophils # (Manual) Basophils # (Manual) PT INR Fibrinogen dRVVT Confirm Interp Factor V Activity POC ABG pH POC ABG pCO2 POC ABG pO2 ABG pO2 ABG HCO3 ABG Base Excess ABG Hemoglobin Oxyhemoglobin Sodium Potassium Chloride Carbon Dioxide BUN Creatinine Glucose POC Glucose 135 H 149 H 140 H Lactic Acid Calcium Ionized Calcium Phosphorus Magnesium Direct Bilirubin AST ALT Alkaline Phosphatase Lactate Dehydrogenase Troponin T C-Reactive Protein Total Protein Albumin Prealbumin Triglycerides Cholesterol LDL Cholesterol Direct HDL Cholesterol 25-OH Vitamin D Total PTH Intact Urine pH Urine WBC (Auto) Urine Creatinine Urine Total Protein Fluid Total Protein Vancomycin Trough Rheumatoid Factor Complement C4 Miscellaneous Test Crossmatch 12/22/16 12/22/16 12/22/16 06:10 11:17 17:31 WBC RBC Hgb Hct MCV MCH MCHC RDW Plt Count Lymph % (Auto) [place] % (Auto) Lymph # [place] # Baso # Seg Neutrophils % Seg Neuts % (Manual) Lymphocytes % (Manual) Monocytes % (Manual) Eosinophils % (Manual) Basophils % (Manual) Nucleated RBC % Seg Neutrophils # Seg Neutrophils # Man Lymphocytes # (Manual) Monocytes # (Manual) Eosinophils # (Manual) Basophils # (Manual) PT INR Fibrinogen dRVVT Confirm Interp Factor V Activity POC ABG pH POC ABG pCO2 POC ABG pO2 ABG pO2 ABG HCO3 ABG Base Excess ABG Hemoglobin Oxyhemoglobin Sodium Potassium Chloride Carbon Dioxide BUN 76 H Creatinine 1.5 H Glucose 241 H POC Glucose 193 H 148 H Lactic Acid Calcium Ionized Calcium Phosphorus Magnesium Direct Bilirubin AST ALT Alkaline Phosphatase Lactate Dehydrogenase Troponin T C-Reactive Protein Total Protein Albumin Prealbumin Triglycerides Cholesterol LDL Cholesterol Direct HDL Cholesterol 25-OH Vitamin D Total PTH Intact Urine pH Urine WBC (Auto) Urine Creatinine Urine Total Protein Fluid Total Protein Vancomycin Trough Rheumatoid Factor Complement C4 Miscellaneous Test Crossmatch 12/22/16 12/23/16 12/23/16 23:58 05:00 05:26 WBC RBC Hgb Hct MCV MCH MCHC RDW Plt Count Lymph % (Auto) [place] % (Auto) Lymph # [place] # Baso # Seg Neutrophils % Seg Neuts % (Manual) Lymphocytes % (Manual) Monocytes % (Manual) Eosinophils % (Manual) Basophils % (Manual) Nucleated RBC % Seg Neutrophils # Seg Neutrophils # Man Lymphocytes # (Manual) Monocytes # (Manual) Eosinophils # (Manual) Basophils # (Manual) PT INR Fibrinogen dRVVT Confirm Interp Factor V Activity POC ABG pH POC ABG pCO2 POC ABG pO2 ABG pO2 ABG HCO3 ABG Base Excess ABG Hemoglobin Oxyhemoglobin Sodium Potassium Chloride Carbon Dioxide BUN 49 H Creatinine Glucose 143 H POC Glucose 165 H 154 H Lactic Acid Calcium 8.2 L Ionized Calcium Phosphorus Magnesium 1.60 L Direct Bilirubin AST ALT Alkaline Phosphatase Lactate Dehydrogenase Troponin T C-Reactive Protein Total Protein Albumin Prealbumin Triglycerides Cholesterol LDL Cholesterol Direct HDL Cholesterol 25-OH Vitamin D Total PTH Intact Urine pH Urine WBC (Auto) Urine Creatinine Urine Total Protein Fluid Total Protein Vancomycin Trough Rheumatoid Factor Complement C4 Miscellaneous Test Crossmatch 12/23/16 12/23/16 12/24/16 12:35 17:01 00:01 WBC RBC Hgb Hct MCV MCH MCHC RDW Plt Count Lymph % (Auto) [place] % (Auto) Lymph # [place] # Baso # Seg Neutrophils % Seg Neuts % (Manual) Lymphocytes % (Manual) Monocytes % (Manual) Eosinophils % (Manual) Basophils % (Manual) Nucleated RBC % Seg Neutrophils # Seg Neutrophils # Man Lymphocytes # (Manual) Monocytes # (Manual) Eosinophils # (Manual) Basophils # (Manual) PT INR Fibrinogen dRVVT Confirm Interp Factor V Activity POC ABG pH POC ABG pCO2 POC ABG pO2 ABG pO2 ABG HCO3 ABG Base Excess ABG Hemoglobin Oxyhemoglobin Sodium Potassium Chloride Carbon Dioxide BUN Creatinine Glucose POC Glucose 164 H 149 H 135 H Lactic Acid Calcium Ionized Calcium Phosphorus Magnesium Direct Bilirubin AST ALT Alkaline Phosphatase Lactate Dehydrogenase Troponin T C-Reactive Protein Total Protein Albumin Prealbumin Triglycerides Cholesterol LDL Cholesterol Direct HDL Cholesterol 25-OH Vitamin D Total PTH Intact Urine pH Urine WBC (Auto) Urine Creatinine Urine Total Protein Fluid Total Protein Vancomycin Trough Rheumatoid Factor Complement C4 Miscellaneous Test Crossmatch 12/24/16 12/24/16 12/24/16 05:41 07:01 11:38 WBC RBC Hgb Hct MCV MCH MCHC RDW Plt Count Lymph % (Auto) [place] % (Auto) Lymph # [place] # Baso # Seg Neutrophils % Seg Neuts % (Manual) Lymphocytes % (Manual) Monocytes % (Manual) Eosinophils % (Manual) Basophils % (Manual) Nucleated RBC % Seg Neutrophils # Seg Neutrophils # Man Lymphocytes # (Manual) Monocytes # (Manual) Eosinophils # (Manual) Basophils # (Manual) PT INR Fibrinogen dRVVT Confirm Interp Factor V Activity POC ABG pH POC ABG pCO2 POC ABG pO2 ABG pO2 ABG HCO3 ABG Base Excess ABG Hemoglobin Oxyhemoglobin Sodium Potassium Chloride Carbon Dioxide BUN 72 H Creatinine 1.3 H Glucose 130 H POC Glucose 132 H 156 H Lactic Acid Calcium 8.2 L Ionized Calcium Phosphorus Magnesium Direct Bilirubin AST ALT Alkaline Phosphatase Lactate Dehydrogenase Troponin T C-Reactive Protein Total Protein Albumin Prealbumin Triglycerides Cholesterol LDL Cholesterol Direct HDL Cholesterol 25-OH Vitamin D Total PTH Intact Urine pH Urine WBC (Auto) Urine Creatinine Urine Total Protein Fluid Total Protein Vancomycin Trough Rheumatoid Factor Complement C4 Miscellaneous Test Crossmatch 12/24/16 12/25/16 12/25/16 17:53 00:23 05:45 WBC RBC Hgb Hct MCV MCH MCHC RDW Plt Count Lymph % (Auto) [place] % (Auto) Lymph # [place] # Baso # Seg Neutrophils % Seg Neuts % (Manual) Lymphocytes % (Manual) Monocytes % (Manual) Eosinophils % (Manual) Basophils % (Manual) Nucleated RBC % Seg Neutrophils # Seg Neutrophils # Man Lymphocytes # (Manual) Monocytes # (Manual) Eosinophils # (Manual) Basophils # (Manual) PT INR Fibrinogen dRVVT Confirm Interp Factor V Activity POC ABG pH POC ABG pCO2 POC ABG pO2 ABG pO2 ABG HCO3 ABG Base Excess ABG Hemoglobin Oxyhemoglobin Sodium 146 H Potassium Chloride Carbon Dioxide BUN 51 H Creatinine Glucose 109 H POC Glucose 169 H 117 H Lactic Acid Calcium Ionized Calcium Phosphorus Magnesium Direct Bilirubin AST ALT Alkaline Phosphatase Lactate Dehydrogenase Troponin T C-Reactive Protein Total Protein Albumin Prealbumin Triglycerides Cholesterol LDL Cholesterol Direct HDL Cholesterol 25-OH Vitamin D Total PTH Intact Urine pH Urine WBC (Auto) Urine Creatinine Urine Total Protein Fluid Total Protein Vancomycin Trough Rheumatoid Factor Complement C4 Miscellaneous Test Crossmatch 12/25/16 12/25/16 12/25/16 06:43 11:29 17:14 WBC RBC Hgb Hct MCV MCH MCHC RDW Plt Count Lymph % (Auto) [place] % (Auto) Lymph # [place] # Baso # Seg Neutrophils % Seg Neuts % (Manual) Lymphocytes % (Manual) Monocytes % (Manual) Eosinophils % (Manual) Basophils % (Manual) Nucleated RBC % Seg Neutrophils # Seg Neutrophils # Man Lymphocytes # (Manual) Monocytes # (Manual) Eosinophils # (Manual) Basophils # (Manual) PT INR Fibrinogen dRVVT Confirm Interp Factor V Activity POC ABG pH POC ABG pCO2 POC ABG pO2 ABG pO2 ABG HCO3 ABG Base Excess ABG Hemoglobin Oxyhemoglobin Sodium Potassium Chloride Carbon Dioxide BUN Creatinine Glucose POC Glucose 117 H 128 H 120 H Lactic Acid Calcium Ionized Calcium Phosphorus Magnesium Direct Bilirubin AST ALT Alkaline Phosphatase Lactate Dehydrogenase Troponin T C-Reactive Protein Total Protein Albumin Prealbumin Triglycerides Cholesterol LDL Cholesterol Direct HDL Cholesterol 25-OH Vitamin D Total PTH Intact Urine pH Urine WBC (Auto) Urine Creatinine Urine Total Protein Fluid Total Protein Vancomycin Trough Rheumatoid Factor Complement C4 Miscellaneous Test Crossmatch 12/25/16 12/26/16 12/26/16 23:54 05:40 05:50 WBC 16.2 H RBC 2.32 L Hgb 6.2 L Hct 20.1 L MCV MCH 27 L MCHC RDW 18.6 H Plt Count Lymph % (Auto) [place] % (Auto) Lymph # [place] # Baso # Seg Neutrophils % Seg Neuts % (Manual) Lymphocytes % (Manual) Monocytes % (Manual) Eosinophils % (Manual) Basophils % (Manual) Nucleated RBC % Seg Neutrophils # Seg Neutrophils # Man Lymphocytes # (Manual) Monocytes # (Manual) Eosinophils # (Manual) Basophils # (Manual) PT INR Fibrinogen dRVVT Confirm Interp Factor V Activity POC ABG pH POC ABG pCO2 POC ABG pO2 ABG pO2 ABG HCO3 ABG Base Excess ABG Hemoglobin Oxyhemoglobin Sodium Potassium Chloride Carbon Dioxide BUN Creatinine Glucose POC Glucose 126 H 132 H Lactic Acid Calcium Ionized Calcium Phosphorus Magnesium Direct Bilirubin AST ALT Alkaline Phosphatase Lactate Dehydrogenase Troponin T C-Reactive Protein Total Protein Albumin Prealbumin Triglycerides Cholesterol LDL Cholesterol Direct HDL Cholesterol 25-OH Vitamin D Total PTH Intact Urine pH Urine WBC (Auto) Urine Creatinine Urine Total Protein Fluid Total Protein Vancomycin Trough Rheumatoid Factor Complement C4 Miscellaneous Test Crossmatch 12/26/16 12/26/16 12/26/16 05:50 12:17 12:33 WBC RBC Hgb Hct MCV MCH MCHC RDW Plt Count Lymph % (Auto) [place] % (Auto) Lymph # [place] # Baso # Seg Neutrophils % Seg Neuts % (Manual) Lymphocytes % (Manual) Monocytes % (Manual) Eosinophils % (Manual) Basophils % (Manual) Nucleated RBC % Seg Neutrophils # Seg Neutrophils # Man Lymphocytes # (Manual) Monocytes # (Manual) Eosinophils # (Manual) Basophils # (Manual) PT INR Fibrinogen dRVVT Confirm Interp Factor V Activity POC ABG pH POC ABG pCO2 POC ABG pO2 ABG pO2 ABG HCO3 ABG Base Excess ABG Hemoglobin Oxyhemoglobin Sodium Potassium Chloride Carbon Dioxide BUN 73 H Creatinine 1.3 H Glucose 113 H POC Glucose 117 H Lactic Acid Calcium Ionized Calcium Phosphorus Magnesium Direct Bilirubin AST ALT Alkaline Phosphatase Lactate Dehydrogenase Troponin T C-Reactive Protein Total Protein Albumin Prealbumin Triglycerides Cholesterol LDL Cholesterol Direct HDL Cholesterol 25-OH Vitamin D Total PTH Intact Urine pH Urine WBC (Auto) Urine Creatinine Urine Total Protein Fluid Total Protein Vancomycin Trough Rheumatoid Factor Complement C4 Miscellaneous Test Crossmatch See Detail 12/26/16 12/26/16 12/27/16 20:00 23:21 05:00 WBC RBC Hgb 8.4 L Hct 26.3 L D MCV MCH MCHC RDW Plt Count Lymph % (Auto) [place] % (Auto) Lymph # [place] # Baso # Seg Neutrophils % Seg Neuts % (Manual) Lymphocytes % (Manual) Monocytes % (Manual) Eosinophils % (Manual) Basophils % (Manual) Nucleated RBC % Seg Neutrophils # Seg Neutrophils # Man Lymphocytes # (Manual) Monocytes # (Manual) Eosinophils # (Manual) Basophils # (Manual) PT INR Fibrinogen dRVVT Confirm Interp Factor V Activity POC ABG pH POC ABG pCO2 POC ABG pO2 ABG pO2 ABG HCO3 ABG Base Excess ABG Hemoglobin Oxyhemoglobin Sodium Potassium Chloride Carbon Dioxide BUN 85 H Creatinine 1.6 H Glucose 118 H POC Glucose 124 H Lactic Acid Calcium Ionized Calcium Phosphorus 4.80 H Magnesium Direct Bilirubin AST ALT Alkaline Phosphatase Lactate Dehydrogenase Troponin T C-Reactive Protein Total Protein Albumin Prealbumin Triglycerides Cholesterol LDL Cholesterol Direct HDL Cholesterol 25-OH Vitamin D Total PTH Intact Urine pH Urine WBC (Auto) Urine Creatinine Urine Total Protein Fluid Total Protein Vancomycin Trough Rheumatoid Factor Complement C4 Miscellaneous Test Crossmatch 12/27/16 12/27/16 12/27/16 05:00 05:35 12:24 WBC RBC Hgb 7.6 L Hct 22.8 L MCV MCH MCHC RDW Plt Count Lymph % (Auto) [place] % (Auto) Lymph # [place] # Baso # Seg Neutrophils % Seg Neuts % (Manual) Lymphocytes % (Manual) Monocytes % (Manual) Eosinophils % (Manual) Basophils % (Manual) Nucleated RBC % Seg Neutrophils # Seg Neutrophils # Man Lymphocytes # (Manual) Monocytes # (Manual) Eosinophils # (Manual) Basophils # (Manual) PT INR Fibrinogen dRVVT Confirm Interp Factor V Activity POC ABG pH POC ABG pCO2 POC ABG pO2 ABG pO2 ABG HCO3 ABG Base Excess ABG Hemoglobin Oxyhemoglobin Sodium Potassium Chloride Carbon Dioxide BUN Creatinine Glucose POC Glucose 115 H 131 H Lactic Acid Calcium Ionized Calcium Phosphorus Magnesium Direct Bilirubin AST ALT Alkaline Phosphatase Lactate Dehydrogenase Troponin T C-Reactive Protein Total Protein Albumin Prealbumin Triglycerides Cholesterol LDL Cholesterol Direct HDL Cholesterol 25-OH Vitamin D Total PTH Intact Urine pH Urine WBC (Auto) Urine Creatinine Urine Total Protein Fluid Total Protein Vancomycin Trough Rheumatoid Factor Complement C4 Miscellaneous Test Crossmatch 12/27/16 12/28/16 12/28/16 17:16 00:18 04:00 WBC RBC Hgb Hct MCV MCH MCHC RDW Plt Count Lymph % (Auto) [place] % (Auto) Lymph # [place] # Baso # Seg Neutrophils % Seg Neuts % (Manual) Lymphocytes % (Manual) Monocytes % (Manual) Eosinophils % (Manual) Basophils % (Manual) Nucleated RBC % Seg Neutrophils # Seg Neutrophils # Man Lymphocytes # (Manual) Monocytes # (Manual) Eosinophils # (Manual) Basophils # (Manual) PT INR Fibrinogen dRVVT Confirm Interp Factor V Activity POC ABG pH POC ABG pCO2 POC ABG pO2 ABG pO2 ABG HCO3 ABG Base Excess ABG Hemoglobin Oxyhemoglobin Sodium Potassium 3.5 L Chloride Carbon Dioxide BUN 57 H Creatinine Glucose 118 H POC Glucose 136 H 120 H Lactic Acid Calcium 8.3 L Ionized Calcium Phosphorus Magnesium Direct Bilirubin AST ALT Alkaline Phosphatase Lactate Dehydrogenase Troponin T C-Reactive Protein Total Protein Albumin Prealbumin Triglycerides Cholesterol LDL Cholesterol Direct HDL Cholesterol 25-OH Vitamin D Total PTH Intact Urine pH Urine WBC (Auto) Urine Creatinine Urine Total Protein Fluid Total Protein Vancomycin Trough Rheumatoid Factor Complement C4 Miscellaneous Test Crossmatch 12/28/16 12/28/16 12/28/16 04:00 05:11 08:30 WBC 17.0 H RBC 2.58 L Hgb 7.1 L Hct 22.0 L MCV MCH MCHC RDW 17.6 H Plt Count Lymph % (Auto) 12.2 L [place] % (Auto) Lymph # [place] # 1.1 H Baso # Seg Neutrophils % 80.5 H Seg Neuts % (Manual) Lymphocytes % (Manual) Monocytes % (Manual) Eosinophils % (Manual) Basophils % (Manual) Nucleated RBC % Seg Neutrophils # 13.7 H Seg Neutrophils # Man Lymphocytes # (Manual) Monocytes # (Manual) Eosinophils # (Manual) Basophils # (Manual) PT 16.1 H INR 1.23 H Fibrinogen dRVVT Confirm Interp Factor V Activity POC ABG pH POC ABG pCO2 POC ABG pO2 ABG pO2 ABG HCO3 ABG Base Excess ABG Hemoglobin Oxyhemoglobin Sodium Potassium Chloride Carbon Dioxide BUN Creatinine Glucose POC Glucose 122 H Lactic Acid Calcium Ionized Calcium Phosphorus Magnesium Direct Bilirubin AST ALT Alkaline Phosphatase Lactate Dehydrogenase Troponin T C-Reactive Protein Total Protein Albumin Prealbumin Triglycerides Cholesterol LDL Cholesterol Direct HDL Cholesterol 25-OH Vitamin D Total PTH Intact Urine pH Urine WBC (Auto) Urine Creatinine Urine Total Protein Fluid Total Protein Vancomycin Trough Rheumatoid Factor Complement C4 Miscellaneous Test Crossmatch 12/28/16 12/28/16 12/28/16 12:27 16:32 23:46 WBC RBC Hgb Hct MCV MCH MCHC RDW Plt Count Lymph % (Auto) [place] % (Auto) Lymph # [place] # Baso # Seg Neutrophils % Seg Neuts % (Manual) Lymphocytes % (Manual) Monocytes % (Manual) Eosinophils % (Manual) Basophils % (Manual) Nucleated RBC % Seg Neutrophils # Seg Neutrophils # Man Lymphocytes # (Manual) Monocytes # (Manual) Eosinophils # (Manual) Basophils # (Manual) PT INR Fibrinogen dRVVT Confirm Interp Factor V Activity POC ABG pH POC ABG pCO2 POC ABG pO2 ABG pO2 ABG HCO3 ABG Base Excess ABG Hemoglobin Oxyhemoglobin Sodium Potassium Chloride Carbon Dioxide BUN Creatinine Glucose POC Glucose 127 H 117 H 108 H Lactic Acid Calcium Ionized Calcium Phosphorus Magnesium Direct Bilirubin AST ALT Alkaline Phosphatase Lactate Dehydrogenase Troponin T C-Reactive Protein Total Protein Albumin Prealbumin Triglycerides Cholesterol LDL Cholesterol Direct HDL Cholesterol 25-OH Vitamin D Total PTH Intact Urine pH Urine WBC (Auto) Urine Creatinine Urine Total Protein Fluid Total Protein Vancomycin Trough Rheumatoid Factor Complement C4 Miscellaneous Test Crossmatch 12/29/16 12/29/16 12/29/16 05:15 05:15 05:32 WBC RBC Hgb Hct MCV MCH MCHC RDW Plt Count Lymph % (Auto) [place] % (Auto) Lymph # [place] # Baso # Seg Neutrophils % Seg Neuts % (Manual) Lymphocytes % (Manual) Monocytes % (Manual) Eosinophils % (Manual) Basophils % (Manual) Nucleated RBC % Seg Neutrophils # Seg Neutrophils # Man Lymphocytes # (Manual) Monocytes # (Manual) Eosinophils # (Manual) Basophils # (Manual) PT INR Fibrinogen dRVVT Confirm Interp Factor V Activity POC ABG pH POC ABG pCO2 POC ABG pO2 ABG pO2 ABG HCO3 ABG Base Excess ABG Hemoglobin Oxyhemoglobin Sodium Potassium Chloride Carbon Dioxide BUN 74 H Creatinine 1.6 H Glucose 111 H POC Glucose 123 H Lactic Acid Calcium Ionized Calcium Phosphorus Magnesium Direct Bilirubin AST ALT Alkaline Phosphatase Lactate Dehydrogenase Troponin T C-Reactive Protein Total Protein Albumin Prealbumin 0.110 L Triglycerides Cholesterol LDL Cholesterol Direct HDL Cholesterol 25-OH Vitamin D Total PTH Intact Urine pH Urine WBC (Auto) Urine Creatinine Urine Total Protein Fluid Total Protein Vancomycin Trough Rheumatoid Factor Complement C4 Miscellaneous Test Crossmatch 12/29/16 12/29/16 12/29/16 11:43 13:45 14:00 WBC 13.8 H RBC 2.26 L Hgb 6.3 L Hct 20.4 L MCV MCH MCHC RDW 18.3 H Plt Count Lymph % (Auto) [place] % (Auto) Lymph # [place] # 0.9 H Baso # Seg Neutrophils % 78.6 H Seg Neuts % (Manual) Lymphocytes % (Manual) Monocytes % (Manual) Eosinophils % (Manual) Basophils % (Manual) Nucleated RBC % Seg Neutrophils # 10.8 H Seg Neutrophils # Man Lymphocytes # (Manual) Monocytes # (Manual) Eosinophils # (Manual) Basophils # (Manual) PT INR Fibrinogen dRVVT Confirm Interp Factor V Activity POC ABG pH POC ABG pCO2 POC ABG pO2 ABG pO2 ABG HCO3 ABG Base Excess ABG Hemoglobin Oxyhemoglobin Sodium Potassium Chloride Carbon Dioxide BUN Creatinine Glucose POC Glucose 133 H Lactic Acid Calcium Ionized Calcium Phosphorus Magnesium Direct Bilirubin AST ALT Alkaline Phosphatase Lactate Dehydrogenase Troponin T C-Reactive Protein Total Protein Albumin Prealbumin Triglycerides Cholesterol LDL Cholesterol Direct HDL Cholesterol 25-OH Vitamin D Total PTH Intact Urine pH Urine WBC (Auto) Urine Creatinine Urine Total Protein Fluid Total Protein Vancomycin Trough Rheumatoid Factor Complement C4 Miscellaneous Test Crossmatch See Detail 12/29/16 12/29/16 12/29/16 17:03 23:15 23:22 WBC RBC Hgb 7.3 L Hct 22.3 L MCV MCH MCHC RDW Plt Count Lymph % (Auto) [place] % (Auto) Lymph # [place] # Baso # Seg Neutrophils % Seg Neuts % (Manual) Lymphocytes % (Manual) Monocytes % (Manual) Eosinophils % (Manual) Basophils % (Manual) Nucleated RBC % Seg Neutrophils # Seg Neutrophils # Man Lymphocytes # (Manual) Monocytes # (Manual) Eosinophils # (Manual) Basophils # (Manual) PT INR Fibrinogen dRVVT Confirm Interp Factor V Activity POC ABG pH POC ABG pCO2 POC ABG pO2 ABG pO2 ABG HCO3 ABG Base Excess ABG Hemoglobin Oxyhemoglobin Sodium Potassium Chloride Carbon Dioxide BUN Creatinine Glucose POC Glucose 139 H 120 H Lactic Acid Calcium Ionized Calcium Phosphorus Magnesium Direct Bilirubin AST ALT Alkaline Phosphatase Lactate Dehydrogenase Troponin T C-Reactive Protein Total Protein Albumin Prealbumin Triglycerides Cholesterol LDL Cholesterol Direct HDL Cholesterol 25-OH Vitamin D Total PTH Intact Urine pH Urine WBC (Auto) Urine Creatinine Urine Total Protein Fluid Total Protein Vancomycin Trough Rheumatoid Factor Complement C4 Miscellaneous Test Crossmatch 12/30/16 12/30/16 12/30/16 04:20 04:20 05:43 WBC 15.6 H RBC 2.81 L Hgb 8.0 L Hct 24.0 L MCV MCH MCHC RDW 16.9 H Plt Count Lymph % (Auto) [place] % (Auto) Lymph # [place] # 1.0 H Baso # Seg Neutrophils % 76.2 H Seg Neuts % (Manual) Lymphocytes % (Manual) Monocytes % (Manual) Eosinophils % (Manual) Basophils % (Manual) Nucleated RBC % Seg Neutrophils # 11.9 H Seg Neutrophils # Man Lymphocytes # (Manual) Monocytes # (Manual) Eosinophils # (Manual) Basophils # (Manual) PT INR Fibrinogen dRVVT Confirm Interp Factor V Activity POC ABG pH POC ABG pCO2 POC ABG pO2 ABG pO2 ABG HCO3 ABG Base Excess ABG Hemoglobin Oxyhemoglobin Sodium Potassium Chloride Carbon Dioxide BUN 87 H Creatinine 1.8 H Glucose 119 H POC Glucose 115 H Lactic Acid Calcium Ionized Calcium Phosphorus Magnesium Direct Bilirubin AST ALT Alkaline Phosphatase Lactate Dehydrogenase Troponin T C-Reactive Protein Total Protein Albumin Prealbumin Triglycerides Cholesterol LDL Cholesterol Direct HDL Cholesterol 25-OH Vitamin D Total PTH Intact Urine pH Urine WBC (Auto) Urine Creatinine Urine Total Protein Fluid Total Protein Vancomycin Trough Rheumatoid Factor Complement C4 Miscellaneous Test Crossmatch 12/30/16 12/30/16 12/31/16 17:27 23:21 04:00 WBC RBC Hgb Hct MCV MCH MCHC RDW Plt Count Lymph % (Auto) [place] % (Auto) Lymph # [place] # Baso # Seg Neutrophils % Seg Neuts % (Manual) Lymphocytes % (Manual) Monocytes % (Manual) Eosinophils % (Manual) Basophils % (Manual) Nucleated RBC % Seg Neutrophils # Seg Neutrophils # Man Lymphocytes # (Manual) Monocytes # (Manual) Eosinophils # (Manual) Basophils # (Manual) PT INR Fibrinogen dRVVT Confirm Interp Factor V Activity POC ABG pH POC ABG pCO2 POC ABG pO2 ABG pO2 ABG HCO3 ABG Base Excess ABG Hemoglobin Oxyhemoglobin Sodium Potassium Chloride Carbon Dioxide BUN 59 H Creatinine Glucose 298 H POC Glucose 144 H 125 H Lactic Acid Calcium Ionized Calcium Phosphorus Magnesium Direct Bilirubin AST ALT Alkaline Phosphatase Lactate Dehydrogenase Troponin T C-Reactive Protein Total Protein Albumin Prealbumin Triglycerides Cholesterol LDL Cholesterol Direct HDL Cholesterol 25-OH Vitamin D Total PTH Intact Urine pH Urine WBC (Auto) Urine Creatinine Urine Total Protein Fluid Total Protein Vancomycin Trough Rheumatoid Factor Complement C4 Miscellaneous Test Crossmatch 12/31/16 12/31/16 12/31/16 05:11 12:18 18:17 WBC RBC Hgb Hct MCV MCH MCHC RDW Plt Count Lymph % (Auto) [place] % (Auto) Lymph # [place] # Baso # Seg Neutrophils % Seg Neuts % (Manual) Lymphocytes % (Manual) Monocytes % (Manual) Eosinophils % (Manual) Basophils % (Manual) Nucleated RBC % Seg Neutrophils # Seg Neutrophils # Man Lymphocytes # (Manual) Monocytes # (Manual) Eosinophils # (Manual) Basophils # (Manual) PT INR Fibrinogen dRVVT Confirm Interp Factor V Activity POC ABG pH POC ABG pCO2 POC ABG pO2 ABG pO2 ABG HCO3 ABG Base Excess ABG Hemoglobin Oxyhemoglobin Sodium Potassium Chloride Carbon Dioxide BUN Creatinine Glucose POC Glucose 167 H 125 H 133 H Lactic Acid Calcium Ionized Calcium Phosphorus Magnesium Direct Bilirubin AST ALT Alkaline Phosphatase Lactate Dehydrogenase Troponin T C-Reactive Protein Total Protein Albumin Prealbumin Triglycerides Cholesterol LDL Cholesterol Direct HDL Cholesterol 25-OH Vitamin D Total PTH Intact Urine pH Urine WBC (Auto) Urine Creatinine Urine Total Protein Fluid Total Protein Vancomycin Trough Rheumatoid Factor Complement C4 Miscellaneous Test Crossmatch 12/31/16 01/01/17 01/01/17 23:55 05:00 05:12 WBC RBC Hgb Hct MCV MCH MCHC RDW Plt Count Lymph % (Auto) [place] % (Auto) Lymph # [place] # Baso # Seg Neutrophils % Seg Neuts % (Manual) Lymphocytes % (Manual) Monocytes % (Manual) Eosinophils % (Manual) Basophils % (Manual) Nucleated RBC % Seg Neutrophils # Seg Neutrophils # Man Lymphocytes # (Manual) Monocytes # (Manual) Eosinophils # (Manual) Basophils # (Manual) PT INR Fibrinogen dRVVT Confirm Interp Factor V Activity POC ABG pH POC ABG pCO2 POC ABG pO2 ABG pO2 ABG HCO3 ABG Base Excess ABG Hemoglobin Oxyhemoglobin Sodium Potassium Chloride Carbon Dioxide BUN 76 H Creatinine 1.5 H Glucose 109 H POC Glucose 129 H 129 H Lactic Acid Calcium Ionized Calcium Phosphorus Magnesium Direct Bilirubin AST ALT Alkaline Phosphatase 536 H Lactate Dehydrogenase Troponin T C-Reactive Protein Total Protein Albumin 1.5 L Prealbumin Triglycerides Cholesterol LDL Cholesterol Direct HDL Cholesterol 25-OH Vitamin D Total PTH Intact Urine pH Urine WBC (Auto) Urine Creatinine Urine Total Protein Fluid Total Protein Vancomycin Trough Rheumatoid Factor Complement C4 Miscellaneous Test Crossmatch 01/01/17 01/01/17 01/01/17 12:25 17:01 23:32 WBC RBC Hgb Hct MCV MCH MCHC RDW Plt Count Lymph % (Auto) [place] % (Auto) Lymph # [place] # Baso # Seg Neutrophils % Seg Neuts % (Manual) Lymphocytes % (Manual) Monocytes % (Manual) Eosinophils % (Manual) Basophils % (Manual) Nucleated RBC % Seg Neutrophils # Seg Neutrophils # Man Lymphocytes # (Manual) Monocytes # (Manual) Eosinophils # (Manual) Basophils # (Manual) PT INR Fibrinogen dRVVT Confirm Interp Factor V Activity POC ABG pH POC ABG pCO2 POC ABG pO2 ABG pO2 ABG HCO3 ABG Base Excess ABG Hemoglobin Oxyhemoglobin Sodium Potassium Chloride Carbon Dioxide BUN Creatinine Glucose POC Glucose 140 H 142 H 112 H Lactic Acid Calcium Ionized Calcium Phosphorus Magnesium Direct Bilirubin AST ALT Alkaline Phosphatase Lactate Dehydrogenase Troponin T C-Reactive Protein Total Protein Albumin Prealbumin Triglycerides Cholesterol LDL Cholesterol Direct HDL Cholesterol 25-OH Vitamin D Total PTH Intact Urine pH Urine WBC (Auto) Urine Creatinine Urine Total Protein Fluid Total Protein Vancomycin Trough Rheumatoid Factor Complement C4 Miscellaneous Test Crossmatch 01/02/17 01/02/17 01/02/17 04:56 06:00 11:37 WBC RBC Hgb Hct MCV MCH MCHC RDW Plt Count Lymph % (Auto) [place] % (Auto) Lymph # [place] # Baso # Seg Neutrophils % Seg Neuts % (Manual) Lymphocytes % (Manual) Monocytes % (Manual) Eosinophils % (Manual) Basophils % (Manual) Nucleated RBC % Seg Neutrophils # Seg Neutrophils # Man Lymphocytes # (Manual) Monocytes # (Manual) Eosinophils # (Manual) Basophils # (Manual) PT INR Fibrinogen dRVVT Confirm Interp Factor V Activity POC ABG pH POC ABG pCO2 POC ABG pO2 ABG pO2 ABG HCO3 ABG Base Excess ABG Hemoglobin Oxyhemoglobin Sodium Potassium Chloride Carbon Dioxide BUN 88 H Creatinine 1.7 H Glucose 113 H POC Glucose 136 H 200 H Lactic Acid Calcium Ionized Calcium Phosphorus Magnesium Direct Bilirubin AST ALT Alkaline Phosphatase Lactate Dehydrogenase Troponin T C-Reactive Protein Total Protein Albumin Prealbumin Triglycerides Cholesterol LDL Cholesterol Direct HDL Cholesterol 25-OH Vitamin D Total PTH Intact Urine pH Urine WBC (Auto) Urine Creatinine Urine Total Protein Fluid Total Protein Vancomycin Trough Rheumatoid Factor Complement C4 Miscellaneous Test Crossmatch 01/02/17 01/02/17 01/03/17 17:42 22:52 04:54 WBC RBC Hgb Hct MCV MCH MCHC RDW Plt Count Lymph % (Auto) [place] % (Auto) Lymph # [place] # Baso # Seg Neutrophils % Seg Neuts % (Manual) Lymphocytes % (Manual) Monocytes % (Manual) Eosinophils % (Manual) Basophils % (Manual) Nucleated RBC % Seg Neutrophils # Seg Neutrophils # Man Lymphocytes # (Manual) Monocytes # (Manual) Eosinophils # (Manual) Basophils # (Manual) PT INR Fibrinogen dRVVT Confirm Interp Factor V Activity POC ABG pH POC ABG pCO2 POC ABG pO2 ABG pO2 ABG HCO3 ABG Base Excess ABG Hemoglobin Oxyhemoglobin Sodium Potassium Chloride Carbon Dioxide BUN Creatinine Glucose POC Glucose 112 H 133 H 111 H Lactic Acid Calcium Ionized Calcium Phosphorus Magnesium Direct Bilirubin AST ALT Alkaline Phosphatase Lactate Dehydrogenase Troponin T C-Reactive Protein Total Protein Albumin Prealbumin Triglycerides Cholesterol LDL Cholesterol Direct HDL Cholesterol 25-OH Vitamin D Total PTH Intact Urine pH Urine WBC (Auto) Urine Creatinine Urine Total Protein Fluid Total Protein Vancomycin Trough Rheumatoid Factor Complement C4 Miscellaneous Test Crossmatch 01/03/17 01/03/17 01/03/17 05:00 05:00 14:02 WBC 11.2 H RBC 2.56 L Hgb 7.2 L Hct 22.3 L MCV MCH MCHC RDW 17.3 H Plt Count Lymph % (Auto) [place] % (Auto) 10.0 H Lymph # [place] # 1.1 H Baso # Seg Neutrophils % 70.5 H Seg Neuts % (Manual) Lymphocytes % (Manual) Monocytes % (Manual) Eosinophils % (Manual) Basophils % (Manual) Nucleated RBC % Seg Neutrophils # 7.9 H Seg Neutrophils # Man Lymphocytes # (Manual) Monocytes # (Manual) Eosinophils # (Manual) Basophils # (Manual) PT INR Fibrinogen dRVVT Confirm Interp Factor V Activity POC ABG pH POC ABG pCO2 POC ABG pO2 ABG pO2 ABG HCO3 ABG Base Excess ABG Hemoglobin Oxyhemoglobin Sodium Potassium Chloride Carbon Dioxide BUN 60 H Creatinine 1.3 H Glucose 110 H POC Glucose 119 H Lactic Acid Calcium Ionized Calcium Phosphorus Magnesium Direct Bilirubin AST ALT Alkaline Phosphatase Lactate Dehydrogenase Troponin T C-Reactive Protein Total Protein Albumin Prealbumin Triglycerides Cholesterol LDL Cholesterol Direct HDL Cholesterol 25-OH Vitamin D Total PTH Intact Urine pH Urine WBC (Auto) Urine Creatinine Urine Total Protein Fluid Total Protein Vancomycin Trough Rheumatoid Factor Complement C4 Miscellaneous Test Crossmatch 01/03/17 01/03/17 01/04/17 18:13 23:40 05:57 WBC RBC Hgb Hct MCV MCH MCHC RDW Plt Count Lymph % (Auto) [place] % (Auto) Lymph # [place] # Baso # Seg Neutrophils % Seg Neuts % (Manual) Lymphocytes % (Manual) Monocytes % (Manual) Eosinophils % (Manual) Basophils % (Manual) Nucleated RBC % Seg Neutrophils # Seg Neutrophils # Man Lymphocytes # (Manual) Monocytes # (Manual) Eosinophils # (Manual) Basophils # (Manual) PT INR Fibrinogen dRVVT Confirm Interp Factor V Activity POC ABG pH POC ABG pCO2 POC ABG pO2 ABG pO2 ABG HCO3 ABG Base Excess ABG Hemoglobin Oxyhemoglobin Sodium Potassium Chloride Carbon Dioxide BUN Creatinine Glucose POC Glucose 107 H 129 H 111 H Lactic Acid Calcium Ionized Calcium Phosphorus Magnesium Direct Bilirubin AST ALT Alkaline Phosphatase Lactate Dehydrogenase Troponin T C-Reactive Protein Total Protein Albumin Prealbumin Triglycerides Cholesterol LDL Cholesterol Direct HDL Cholesterol 25-OH Vitamin D Total PTH Intact Urine pH Urine WBC (Auto) Urine Creatinine Urine Total Protein Fluid Total Protein Vancomycin Trough Rheumatoid Factor Complement C4 Miscellaneous Test Crossmatch 01/04/17 01/04/17 01/04/17 12:46 15:27 17:11 WBC RBC Hgb Hct MCV MCH MCHC RDW Plt Count Lymph % (Auto) [place] % (Auto) Lymph # [place] # Baso # Seg Neutrophils % Seg Neuts % (Manual) Lymphocytes % (Manual) Monocytes % (Manual) Eosinophils % (Manual) Basophils % (Manual) Nucleated RBC % Seg Neutrophils # Seg Neutrophils # Man Lymphocytes # (Manual) Monocytes # (Manual) Eosinophils # (Manual) Basophils # (Manual) PT INR Fibrinogen dRVVT Confirm Interp Factor V Activity POC ABG pH POC ABG pCO2 POC ABG pO2 ABG pO2 ABG HCO3 ABG Base Excess ABG Hemoglobin Oxyhemoglobin Sodium Potassium Chloride Carbon Dioxide BUN 43 H Creatinine Glucose 124 H POC Glucose 159 H 125 H Lactic Acid Calcium 8.0 L Ionized Calcium Phosphorus 2.10 L Magnesium Direct Bilirubin AST ALT Alkaline Phosphatase Lactate Dehydrogenase Troponin T C-Reactive Protein Total Protein Albumin Prealbumin Triglycerides Cholesterol LDL Cholesterol Direct HDL Cholesterol 25-OH Vitamin D Total PTH Intact Urine pH Urine WBC (Auto) Urine Creatinine Urine Total Protein Fluid Total Protein Vancomycin Trough Rheumatoid Factor Complement C4 Miscellaneous Test Crossmatch 01/04/17 01/05/17 01/05/17 23:31 04:00 05:46 WBC RBC Hgb Hct MCV MCH MCHC RDW Plt Count Lymph % (Auto) [place] % (Auto) Lymph # [place] # Baso # Seg Neutrophils % Seg Neuts % (Manual) Lymphocytes % (Manual) Monocytes % (Manual) Eosinophils % (Manual) Basophils % (Manual) Nucleated RBC % Seg Neutrophils # Seg Neutrophils # Man Lymphocytes # (Manual) Monocytes # (Manual) Eosinophils # (Manual) Basophils # (Manual) PT INR Fibrinogen dRVVT Confirm Interp Factor V Activity POC ABG pH POC ABG pCO2 POC ABG pO2 ABG pO2 ABG HCO3 ABG Base Excess ABG Hemoglobin Oxyhemoglobin Sodium Potassium Chloride Carbon Dioxide BUN 52 H Creatinine 1.3 H Glucose 113 H POC Glucose 123 H 118 H Lactic Acid Calcium Ionized Calcium Phosphorus 2.40 L Magnesium Direct Bilirubin AST ALT Alkaline Phosphatase Lactate Dehydrogenase Troponin T C-Reactive Protein Total Protein Albumin Prealbumin Triglycerides Cholesterol LDL Cholesterol Direct HDL Cholesterol 25-OH Vitamin D Total PTH Intact Urine pH Urine WBC (Auto) Urine Creatinine Urine Total Protein Fluid Total Protein Vancomycin Trough Rheumatoid Factor Complement C4 Miscellaneous Test Crossmatch 01/05/17 01/05/17 01/05/17 11:41 17:48 23:27 WBC RBC Hgb Hct MCV MCH MCHC RDW Plt Count Lymph % (Auto) [place] % (Auto) Lymph # [place] # Baso # Seg Neutrophils % Seg Neuts % (Manual) Lymphocytes % (Manual) Monocytes % (Manual) Eosinophils % (Manual) Basophils % (Manual) Nucleated RBC % Seg Neutrophils # Seg Neutrophils # Man Lymphocytes # (Manual) Monocytes # (Manual) Eosinophils # (Manual) Basophils # (Manual) PT INR Fibrinogen dRVVT Confirm Interp Factor V Activity POC ABG pH POC ABG pCO2 POC ABG pO2 ABG pO2 ABG HCO3 ABG Base Excess ABG Hemoglobin Oxyhemoglobin Sodium Potassium Chloride Carbon Dioxide BUN Creatinine Glucose POC Glucose 163 H 142 H 155 H Lactic Acid Calcium Ionized Calcium Phosphorus Magnesium Direct Bilirubin AST ALT Alkaline Phosphatase Lactate Dehydrogenase Troponin T C-Reactive Protein Total Protein Albumin Prealbumin Triglycerides Cholesterol LDL Cholesterol Direct HDL Cholesterol 25-OH Vitamin D Total PTH Intact Urine pH Urine WBC (Auto) Urine Creatinine Urine Total Protein Fluid Total Protein Vancomycin Trough Rheumatoid Factor Complement C4 Miscellaneous Test Crossmatch 01/06/17 01/06/17 01/06/17 05:20 07:35 11:18 WBC RBC Hgb Hct MCV MCH MCHC RDW Plt Count Lymph % (Auto) [place] % (Auto) Lymph # [place] # Baso # Seg Neutrophils % Seg Neuts % (Manual) Lymphocytes % (Manual) Monocytes % (Manual) Eosinophils % (Manual) Basophils % (Manual) Nucleated RBC % Seg Neutrophils # Seg Neutrophils # Man Lymphocytes # (Manual) Monocytes # (Manual) Eosinophils # (Manual) Basophils # (Manual) PT INR Fibrinogen dRVVT Confirm Interp Factor V Activity POC ABG pH POC ABG pCO2 POC ABG pO2 ABG pO2 ABG HCO3 ABG Base Excess ABG Hemoglobin Oxyhemoglobin Sodium Potassium Chloride Carbon Dioxide BUN 74 H Creatinine 1.6 H Glucose 135 H POC Glucose 108 H 149 H Lactic Acid Calcium Ionized Calcium Phosphorus Magnesium Direct Bilirubin AST ALT Alkaline Phosphatase Lactate Dehydrogenase Troponin T C-Reactive Protein Total Protein Albumin Prealbumin Triglycerides Cholesterol LDL Cholesterol Direct HDL Cholesterol 25-OH Vitamin D Total PTH Intact Urine pH Urine WBC (Auto) Urine Creatinine Urine Total Protein Fluid Total Protein Vancomycin Trough Rheumatoid Factor Complement C4 Miscellaneous Test Crossmatch 01/06/17 01/07/17 01/07/17 17:17 00:23 05:31 WBC RBC Hgb Hct MCV MCH MCHC RDW Plt Count Lymph % (Auto) [place] % (Auto) Lymph # [place] # Baso # Seg Neutrophils % Seg Neuts % (Manual) Lymphocytes % (Manual) Monocytes % (Manual) Eosinophils % (Manual) Basophils % (Manual) Nucleated RBC % Seg Neutrophils # Seg Neutrophils # Man Lymphocytes # (Manual) Monocytes # (Manual) Eosinophils # (Manual) Basophils # (Manual) PT INR Fibrinogen dRVVT Confirm Interp Factor V Activity POC ABG pH POC ABG pCO2 POC ABG pO2 ABG pO2 ABG HCO3 ABG Base Excess ABG Hemoglobin Oxyhemoglobin Sodium Potassium Chloride Carbon Dioxide BUN Creatinine Glucose POC Glucose 146 H 165 H 153 H Lactic Acid Calcium Ionized Calcium Phosphorus Magnesium Direct Bilirubin AST ALT Alkaline Phosphatase Lactate Dehydrogenase Troponin T C-Reactive Protein Total Protein Albumin Prealbumin Triglycerides Cholesterol LDL Cholesterol Direct HDL Cholesterol 25-OH Vitamin D Total PTH Intact Urine pH Urine WBC (Auto) Urine Creatinine Urine Total Protein Fluid Total Protein Vancomycin Trough Rheumatoid Factor Complement C4 Miscellaneous Test Crossmatch 01/07/17 01/07/17 01/07/17 06:00 11:39 17:11 WBC RBC Hgb Hct MCV MCH MCHC RDW Plt Count Lymph % (Auto) [place] % (Auto) Lymph # [place] # Baso # Seg Neutrophils % Seg Neuts % (Manual) Lymphocytes % (Manual) Monocytes % (Manual) Eosinophils % (Manual) Basophils % (Manual) Nucleated RBC % Seg Neutrophils # Seg Neutrophils # Man Lymphocytes # (Manual) Monocytes # (Manual) Eosinophils # (Manual) Basophils # (Manual) PT INR Fibrinogen dRVVT Confirm Interp Factor V Activity POC ABG pH POC ABG pCO2 POC ABG pO2 ABG pO2 ABG HCO3 ABG Base Excess ABG Hemoglobin Oxyhemoglobin Sodium Potassium Chloride Carbon Dioxide BUN 42 H Creatinine Glucose 175 H POC Glucose 163 H 163 H Lactic Acid Calcium Ionized Calcium Phosphorus 2.40 L D Magnesium Direct Bilirubin AST ALT Alkaline Phosphatase Lactate Dehydrogenase Troponin T C-Reactive Protein Total Protein Albumin Prealbumin Triglycerides Cholesterol LDL Cholesterol Direct HDL Cholesterol 25-OH Vitamin D Total PTH Intact Urine pH Urine WBC (Auto) Urine Creatinine Urine Total Protein Fluid Total Protein Vancomycin Trough Rheumatoid Factor Complement C4 Miscellaneous Test Crossmatch 01/07/17 01/08/17 01/08/17 23:40 05:00 05:00 WBC 27.4 H RBC 2.27 L Hgb 6.1 L Hct 20.4 L MCV MCH 27 L MCHC RDW 17.8 H Plt Count Lymph % (Auto) [place] % (Auto) Lymph # [place] # Baso # Seg Neutrophils % Seg Neuts % (Manual) Lymphocytes % (Manual) Monocytes % (Manual) Eosinophils % (Manual) Basophils % (Manual) Nucleated RBC % Seg Neutrophils # Seg Neutrophils # Man Lymphocytes # (Manual) Monocytes # (Manual) Eosinophils # (Manual) Basophils # (Manual) PT INR Fibrinogen dRVVT Confirm Interp Factor V Activity POC ABG pH POC ABG pCO2 POC ABG pO2 ABG pO2 ABG HCO3 ABG Base Excess ABG Hemoglobin Oxyhemoglobin Sodium Potassium Chloride Carbon Dioxide 16 L D BUN 62 H Creatinine 1.6 H D Glucose 103 H POC Glucose 135 H Lactic Acid Calcium Ionized Calcium Phosphorus Magnesium Direct Bilirubin AST ALT Alkaline Phosphatase Lactate Dehydrogenase Troponin T C-Reactive Protein Total Protein Albumin Prealbumin Triglycerides Cholesterol LDL Cholesterol Direct HDL Cholesterol 25-OH Vitamin D Total PTH Intact Urine pH Urine WBC (Auto) Urine Creatinine Urine Total Protein Fluid Total Protein Vancomycin Trough Rheumatoid Factor Complement C4 Miscellaneous Test Crossmatch 01/08/17 01/08/17 01/08/17 05:25 10:37 10:37 WBC RBC Hgb Hct MCV MCH MCHC RDW Plt Count Lymph % (Auto) [place] % (Auto) Lymph # [place] # Baso # Seg Neutrophils % Seg Neuts % (Manual) Lymphocytes % (Manual) Monocytes % (Manual) Eosinophils % (Manual) Basophils % (Manual) Nucleated RBC % Seg Neutrophils # Seg Neutrophils # Man Lymphocytes # (Manual) Monocytes # (Manual) Eosinophils # (Manual) Basophils # (Manual) PT INR Fibrinogen dRVVT Confirm Interp Factor V Activity POC ABG pH POC ABG pCO2 POC ABG pO2 ABG pO2 ABG HCO3 ABG Base Excess ABG Hemoglobin Oxyhemoglobin Sodium Potassium Chloride Carbon Dioxide BUN Creatinine Glucose POC Glucose 106 H Lactic Acid Calcium Ionized Calcium Phosphorus Magnesium Direct Bilirubin AST ALT Alkaline Phosphatase Lactate Dehydrogenase Troponin T C-Reactive Protein 24.40 H Total Protein Albumin Prealbumin Triglycerides Cholesterol LDL Cholesterol Direct HDL Cholesterol 25-OH Vitamin D Total PTH Intact Urine pH Urine WBC (Auto) Urine Creatinine Urine Total Protein Fluid Total Protein Vancomycin Trough Rheumatoid Factor Complement C4 Miscellaneous Test Crossmatch See Detail 01/08/17 01/08/17 01/08/17 10:37 11:33 15:15 WBC RBC Hgb Hct MCV MCH MCHC RDW Plt Count Lymph % (Auto) [place] % (Auto) Lymph # [place] # Baso # Seg Neutrophils % Seg Neuts % (Manual) Lymphocytes % (Manual) Monocytes % (Manual) Eosinophils % (Manual) Basophils % (Manual) Nucleated RBC % Seg Neutrophils # Seg Neutrophils # Man Lymphocytes # (Manual) Monocytes # (Manual) Eosinophils # (Manual) Basophils # (Manual) PT INR Fibrinogen dRVVT Confirm Interp Factor V Activity POC ABG pH POC ABG pCO2 POC ABG pO2 ABG pO2 ABG HCO3 ABG Base Excess ABG Hemoglobin Oxyhemoglobin Sodium Potassium Chloride Carbon Dioxide BUN Creatinine Glucose POC Glucose 157 H Lactic Acid 9.70 H* 9.10 H* Calcium Ionized Calcium Phosphorus Magnesium Direct Bilirubin AST ALT Alkaline Phosphatase Lactate Dehydrogenase Troponin T C-Reactive Protein Total Protein Albumin Prealbumin Triglycerides Cholesterol LDL Cholesterol Direct HDL Cholesterol 25-OH Vitamin D Total PTH Intact Urine pH Urine WBC (Auto) Urine Creatinine Urine Total Protein Fluid Total Protein Vancomycin Trough Rheumatoid Factor Complement C4 Miscellaneous Test Crossmatch 01/08/17 01/08/17 01/09/17 17:19 23:12 04:40 WBC RBC Hgb Hct MCV MCH MCHC RDW Plt Count Lymph % (Auto) [place] % (Auto) Lymph # [place] # Baso # Seg Neutrophils % Seg Neuts % (Manual) Lymphocytes % (Manual) Monocytes % (Manual) Eosinophils % (Manual) Basophils % (Manual) Nucleated RBC % Seg Neutrophils # Seg Neutrophils # Man Lymphocytes # (Manual) Monocytes # (Manual) Eosinophils # (Manual) Basophils # (Manual) PT INR Fibrinogen dRVVT Confirm Interp Factor V Activity POC ABG pH POC ABG pCO2 POC ABG pO2 ABG pO2 ABG HCO3 ABG Base Excess ABG Hemoglobin Oxyhemoglobin Sodium 147 H Potassium Chloride Carbon Dioxide BUN 82 H Creatinine 1.8 H Glucose 137 H POC Glucose 164 H 157 H Lactic Acid Calcium Ionized Calcium Phosphorus Magnesium Direct Bilirubin AST ALT Alkaline Phosphatase Lactate Dehydrogenase Troponin T C-Reactive Protein Total Protein Albumin Prealbumin Triglycerides Cholesterol LDL Cholesterol Direct HDL Cholesterol 25-OH Vitamin D Total PTH Intact Urine pH Urine WBC (Auto) Urine Creatinine Urine Total Protein Fluid Total Protein Vancomycin Trough Rheumatoid Factor Complement C4 Miscellaneous Test Crossmatch 01/09/17 01/09/17 01/09/17 05:42 08:22 10:57 WBC RBC Hgb Hct MCV MCH MCHC RDW Plt Count Lymph % (Auto) [place] % (Auto) Lymph # [place] # Baso # Seg Neutrophils % Seg Neuts % (Manual) Lymphocytes % (Manual) Monocytes % (Manual) Eosinophils % (Manual) Basophils % (Manual) Nucleated RBC % Seg Neutrophils # Seg Neutrophils # Man Lymphocytes # (Manual) Monocytes # (Manual) Eosinophils # (Manual) Basophils # (Manual) PT INR Fibrinogen dRVVT Confirm Interp Factor V Activity POC ABG pH POC ABG pCO2 POC ABG pO2 ABG pO2 ABG HCO3 ABG Base Excess ABG Hemoglobin Oxyhemoglobin Sodium Potassium Chloride Carbon Dioxide BUN Creatinine Glucose POC Glucose 156 H 122 H Lactic Acid 2.30 H* Calcium Ionized Calcium Phosphorus Magnesium Direct Bilirubin AST ALT Alkaline Phosphatase Lactate Dehydrogenase Troponin T C-Reactive Protein Total Protein Albumin Prealbumin Triglycerides Cholesterol LDL Cholesterol Direct HDL Cholesterol 25-OH Vitamin D Total PTH Intact Urine pH Urine WBC (Auto) Urine Creatinine Urine Total Protein Fluid Total Protein Vancomycin Trough Rheumatoid Factor Complement C4 Miscellaneous Test Crossmatch 01/09/17 01/09/17 01/09/17 13:30 17:14 18:45 WBC RBC Hgb Hct MCV MCH MCHC RDW Plt Count Lymph % (Auto) [place] % (Auto) Lymph # [place] # Baso # Seg Neutrophils % Seg Neuts % (Manual) Lymphocytes % (Manual) Monocytes % (Manual) Eosinophils % (Manual) Basophils % (Manual) Nucleated RBC % Seg Neutrophils # Seg Neutrophils # Man Lymphocytes # (Manual) Monocytes # (Manual) Eosinophils # (Manual) Basophils # (Manual) PT INR Fibrinogen dRVVT Confirm Interp Factor V Activity POC ABG pH POC ABG pCO2 POC ABG pO2 ABG pO2 ABG HCO3 ABG Base Excess ABG Hemoglobin Oxyhemoglobin Sodium Potassium Chloride Carbon Dioxide BUN Creatinine Glucose POC Glucose 127 H Lactic Acid Calcium Ionized Calcium Phosphorus Magnesium Direct Bilirubin AST ALT Alkaline Phosphatase Lactate Dehydrogenase Troponin T C-Reactive Protein 24.70 H Total Protein Albumin Prealbumin Triglycerides Cholesterol LDL Cholesterol Direct HDL Cholesterol 25-OH Vitamin D Total PTH Intact Urine pH Urine WBC (Auto) Urine Creatinine Urine Total Protein Fluid Total Protein Vancomycin Trough Rheumatoid Factor Complement C4 Miscellaneous Test Flexitest 1 H Crossmatch 01/10/17 01/10/17 01/10/17 01:21 04:00 04:00 WBC 18.1 H RBC 3.22 L Hgb 8.8 L Hct 27.0 L D MCV MCH 27 L MCHC RDW 17.0 H Plt Count Lymph % (Auto) [place] % (Auto) Lymph # [place] # Baso # Seg Neutrophils % Seg Neuts % (Manual) Lymphocytes % (Manual) Monocytes % (Manual) Eosinophils % (Manual) Basophils % (Manual) Nucleated RBC % Seg Neutrophils # Seg Neutrophils # Man Lymphocytes # (Manual) Monocytes # (Manual) Eosinophils # (Manual) Basophils # (Manual) PT INR Fibrinogen dRVVT Confirm Interp Factor V Activity POC ABG pH POC ABG pCO2 POC ABG pO2 ABG pO2 ABG HCO3 ABG Base Excess ABG Hemoglobin Oxyhemoglobin Sodium Potassium Chloride Carbon Dioxide BUN 59 H Creatinine 1.3 H Glucose 122 H POC Glucose 160 H Lactic Acid Calcium Ionized Calcium Phosphorus Magnesium Direct Bilirubin AST ALT Alkaline Phosphatase Lactate Dehydrogenase Troponin T C-Reactive Protein Total Protein Albumin Prealbumin Triglycerides Cholesterol LDL Cholesterol Direct HDL Cholesterol 25-OH Vitamin D Total PTH Intact Urine pH Urine WBC (Auto) Urine Creatinine Urine Total Protein Fluid Total Protein Vancomycin Trough Rheumatoid Factor Complement C4 Miscellaneous Test Crossmatch 01/10/17 01/10/17 01/10/17 05:36 12:14 17:55 WBC RBC Hgb Hct MCV MCH MCHC RDW Plt Count Lymph % (Auto) [place] % (Auto) Lymph # [place] # Baso # Seg Neutrophils % Seg Neuts % (Manual) Lymphocytes % (Manual) Monocytes % (Manual) Eosinophils % (Manual) Basophils % (Manual) Nucleated RBC % Seg Neutrophils # Seg Neutrophils # Man Lymphocytes # (Manual) Monocytes # (Manual) Eosinophils # (Manual) Basophils # (Manual) PT INR Fibrinogen dRVVT Confirm Interp Factor V Activity POC ABG pH POC ABG pCO2 POC ABG pO2 ABG pO2 ABG HCO3 ABG Base Excess ABG Hemoglobin Oxyhemoglobin Sodium Potassium Chloride Carbon Dioxide BUN Creatinine Glucose POC Glucose 163 H 120 H 144 H Lactic Acid Calcium Ionized Calcium Phosphorus Magnesium Direct Bilirubin AST ALT Alkaline Phosphatase Lactate Dehydrogenase Troponin T C-Reactive Protein Total Protein Albumin Prealbumin Triglycerides Cholesterol LDL Cholesterol Direct HDL Cholesterol 25-OH Vitamin D Total PTH Intact Urine pH Urine WBC (Auto) Urine Creatinine Urine Total Protein Fluid Total Protein Vancomycin Trough Rheumatoid Factor Complement C4 Miscellaneous Test Crossmatch 01/11/17 01/11/17 01/11/17 00:09 04:00 04:00 WBC 15.8 H RBC 3.04 L Hgb 8.2 L Hct 25.5 L MCV MCH 27 L MCHC RDW 17.3 H Plt Count Lymph % (Auto) [place] % (Auto) Lymph # [place] # Baso # Seg Neutrophils % Seg Neuts % (Manual) Lymphocytes % (Manual) Monocytes % (Manual) Eosinophils % (Manual) Basophils % (Manual) Nucleated RBC % Seg Neutrophils # Seg Neutrophils # Man Lymphocytes # (Manual) Monocytes # (Manual) Eosinophils # (Manual) Basophils # (Manual) PT INR Fibrinogen dRVVT Confirm Interp Factor V Activity POC ABG pH POC ABG pCO2 POC ABG pO2 ABG pO2 ABG HCO3 ABG Base Excess ABG Hemoglobin Oxyhemoglobin Sodium Potassium Chloride Carbon Dioxide BUN 78 H Creatinine 1.6 H Glucose 109 H POC Glucose 122 H Lactic Acid Calcium Ionized Calcium Phosphorus Magnesium Direct Bilirubin AST ALT Alkaline Phosphatase Lactate Dehydrogenase Troponin T C-Reactive Protein Total Protein Albumin Prealbumin Triglycerides Cholesterol LDL Cholesterol Direct HDL Cholesterol 25-OH Vitamin D Total PTH Intact Urine pH Urine WBC (Auto) Urine Creatinine Urine Total Protein Fluid Total Protein Vancomycin Trough Rheumatoid Factor Complement C4 Miscellaneous Test Crossmatch 01/11/17 01/11/17 01/11/17 12:46 18:23 23:42 WBC RBC Hgb Hct MCV MCH MCHC RDW Plt Count Lymph % (Auto) [place] % (Auto) Lymph # [place] # Baso # Seg Neutrophils % Seg Neuts % (Manual) Lymphocytes % (Manual) Monocytes % (Manual) Eosinophils % (Manual) Basophils % (Manual) Nucleated RBC % Seg Neutrophils # Seg Neutrophils # Man Lymphocytes # (Manual) Monocytes # (Manual) Eosinophils # (Manual) Basophils # (Manual) PT INR Fibrinogen dRVVT Confirm Interp Factor V Activity POC ABG pH POC ABG pCO2 POC ABG pO2 ABG pO2 ABG HCO3 ABG Base Excess ABG Hemoglobin Oxyhemoglobin Sodium Potassium Chloride Carbon Dioxide BUN Creatinine Glucose POC Glucose 148 H 125 H 124 H Lactic Acid Calcium Ionized Calcium Phosphorus Magnesium Direct Bilirubin AST ALT Alkaline Phosphatase Lactate Dehydrogenase Troponin T C-Reactive Protein Total Protein Albumin Prealbumin Triglycerides Cholesterol LDL Cholesterol Direct HDL Cholesterol 25-OH Vitamin D Total PTH Intact Urine pH Urine WBC (Auto) Urine Creatinine Urine Total Protein Fluid Total Protein Vancomycin Trough Rheumatoid Factor Complement C4 Miscellaneous Test Crossmatch 01/12/17 01/12/17 01/12/17 04:30 04:30 05:47 WBC 15.8 H RBC 3.31 L Hgb 8.9 L Hct 27.9 L MCV MCH 27 L MCHC RDW 17.4 H Plt Count Lymph % (Auto) [place] % (Auto) Lymph # [place] # Baso # Seg Neutrophils % Seg Neuts % (Manual) Lymphocytes % (Manual) Monocytes % (Manual) Eosinophils % (Manual) Basophils % (Manual) Nucleated RBC % Seg Neutrophils # Seg Neutrophils # Man Lymphocytes # (Manual) Monocytes # (Manual) Eosinophils # (Manual) Basophils # (Manual) PT INR Fibrinogen dRVVT Confirm Interp Factor V Activity POC ABG pH POC ABG pCO2 POC ABG pO2 ABG pO2 ABG HCO3 ABG Base Excess ABG Hemoglobin Oxyhemoglobin Sodium Potassium Chloride Carbon Dioxide BUN 57 H Creatinine Glucose 121 H POC Glucose 110 H Lactic Acid Calcium Ionized Calcium Phosphorus 2.10 L Magnesium Direct Bilirubin AST ALT Alkaline Phosphatase Lactate Dehydrogenase Troponin T C-Reactive Protein Total Protein Albumin Prealbumin Triglycerides Cholesterol LDL Cholesterol Direct HDL Cholesterol 25-OH Vitamin D Total PTH Intact Urine pH Urine WBC (Auto) Urine Creatinine Urine Total Protein Fluid Total Protein Vancomycin Trough Rheumatoid Factor Complement C4 Miscellaneous Test Crossmatch 01/12/17 01/12/17 01/12/17 11:35 17:45 23:14 WBC RBC Hgb Hct MCV MCH MCHC RDW Plt Count Lymph % (Auto) [place] % (Auto) Lymph # [place] # Baso # Seg Neutrophils % Seg Neuts % (Manual) Lymphocytes % (Manual) Monocytes % (Manual) Eosinophils % (Manual) Basophils % (Manual) Nucleated RBC % Seg Neutrophils # Seg Neutrophils # Man Lymphocytes # (Manual) Monocytes # (Manual) Eosinophils # (Manual) Basophils # (Manual) PT INR Fibrinogen dRVVT Confirm Interp Factor V Activity POC ABG pH POC ABG pCO2 POC ABG pO2 ABG pO2 ABG HCO3 ABG Base Excess ABG Hemoglobin Oxyhemoglobin Sodium Potassium Chloride Carbon Dioxide BUN Creatinine Glucose POC Glucose 146 H 117 H 123 H Lactic Acid Calcium Ionized Calcium Phosphorus Magnesium Direct Bilirubin AST ALT Alkaline Phosphatase Lactate Dehydrogenase Troponin T C-Reactive Protein Total Protein Albumin Prealbumin Triglycerides Cholesterol LDL Cholesterol Direct HDL Cholesterol 25-OH Vitamin D Total PTH Intact Urine pH Urine WBC (Auto) Urine Creatinine Urine Total Protein Fluid Total Protein Vancomycin Trough Rheumatoid Factor Complement C4 Miscellaneous Test Crossmatch 01/13/17 01/13/17 01/13/17 05:32 06:00 12:10 WBC RBC Hgb Hct MCV MCH MCHC RDW Plt Count Lymph % (Auto) [place] % (Auto) Lymph # [place] # Baso # Seg Neutrophils % Seg Neuts % (Manual) Lymphocytes % (Manual) Monocytes % (Manual) Eosinophils % (Manual) Basophils % (Manual) Nucleated RBC % Seg Neutrophils # Seg Neutrophils # Man Lymphocytes # (Manual) Monocytes # (Manual) Eosinophils # (Manual) Basophils # (Manual) PT INR Fibrinogen dRVVT Confirm Interp Factor V Activity POC ABG pH POC ABG pCO2 POC ABG pO2 ABG pO2 ABG HCO3 ABG Base Excess ABG Hemoglobin Oxyhemoglobin Sodium Potassium Chloride Carbon Dioxide BUN 80 H Creatinine 1.4 H Glucose 106 H POC Glucose 106 H Lactic Acid Calcium Ionized Calcium Phosphorus Magnesium Direct Bilirubin AST ALT Alkaline Phosphatase Lactate Dehydrogenase Troponin T C-Reactive Protein Total Protein Albumin Prealbumin Triglycerides Cholesterol LDL Cholesterol Direct HDL Cholesterol 25-OH Vitamin D Total PTH Intact Urine pH Urine WBC (Auto) Urine Creatinine Urine Total Protein Fluid Total Protein 3.0 L Vancomycin Trough Rheumatoid Factor Complement C4 Miscellaneous Test Crossmatch 01/13/17 01/13/17 01/13/17 12:17 15:50 17:30 WBC RBC Hgb Hct MCV MCH MCHC RDW Plt Count Lymph % (Auto) [place] % (Auto) Lymph # [place] # Baso # Seg Neutrophils % Seg Neuts % (Manual) Lymphocytes % (Manual) Monocytes % (Manual) Eosinophils % (Manual) Basophils % (Manual) Nucleated RBC % Seg Neutrophils # Seg Neutrophils # Man Lymphocytes # (Manual) Monocytes # (Manual) Eosinophils # (Manual) Basophils # (Manual) PT 15.4 H INR 1.16 H Fibrinogen dRVVT Confirm Interp Factor V Activity POC ABG pH POC ABG pCO2 POC ABG pO2 ABG pO2 ABG HCO3 ABG Base Excess ABG Hemoglobin Oxyhemoglobin Sodium Potassium Chloride Carbon Dioxide BUN Creatinine Glucose POC Glucose 168 H 110 H Lactic Acid Calcium Ionized Calcium Phosphorus Magnesium Direct Bilirubin AST ALT Alkaline Phosphatase Lactate Dehydrogenase Troponin T C-Reactive Protein Total Protein Albumin Prealbumin Triglycerides Cholesterol LDL Cholesterol Direct HDL Cholesterol 25-OH Vitamin D Total PTH Intact Urine pH Urine WBC (Auto) Urine Creatinine Urine Total Protein Fluid Total Protein Vancomycin Trough Rheumatoid Factor Complement C4 Miscellaneous Test Crossmatch 01/13/17 01/14/17 01/14/17 23:42 05:24 05:30 WBC RBC Hgb Hct MCV MCH MCHC RDW Plt Count Lymph % (Auto) [place] % (Auto) Lymph # [place] # Baso # Seg Neutrophils % Seg Neuts % (Manual) Lymphocytes % (Manual) Monocytes % (Manual) Eosinophils % (Manual) Basophils % (Manual) Nucleated RBC % Seg Neutrophils # Seg Neutrophils # Man Lymphocytes # (Manual) Monocytes # (Manual) Eosinophils # (Manual) Basophils # (Manual) PT INR Fibrinogen dRVVT Confirm Interp Factor V Activity POC ABG pH POC ABG pCO2 POC ABG pO2 ABG pO2 ABG HCO3 ABG Base Excess ABG Hemoglobin Oxyhemoglobin Sodium Potassium Chloride Carbon Dioxide BUN 58 H Creatinine Glucose 114 H POC Glucose 155 H 121 H Lactic Acid Calcium Ionized Calcium Phosphorus Magnesium Direct Bilirubin AST ALT Alkaline Phosphatase Lactate Dehydrogenase Troponin T C-Reactive Protein Total Protein Albumin Prealbumin Triglycerides Cholesterol LDL Cholesterol Direct HDL Cholesterol 25-OH Vitamin D Total PTH Intact Urine pH Urine WBC (Auto) Urine Creatinine Urine Total Protein Fluid Total Protein Vancomycin Trough Rheumatoid Factor Complement C4 Miscellaneous Test Crossmatch 01/14/17 01/14/17 01/15/17 12:48 17:36 00:15 WBC RBC Hgb Hct MCV MCH MCHC RDW Plt Count Lymph % (Auto) [place] % (Auto) Lymph # [place] # Baso # Seg Neutrophils % Seg Neuts % (Manual) Lymphocytes % (Manual) Monocytes % (Manual) Eosinophils % (Manual) Basophils % (Manual) Nucleated RBC % Seg Neutrophils # Seg Neutrophils # Man Lymphocytes # (Manual) Monocytes # (Manual) Eosinophils # (Manual) Basophils # (Manual) PT INR Fibrinogen dRVVT Confirm Interp Factor V Activity POC ABG pH POC ABG pCO2 POC ABG pO2 ABG pO2 ABG HCO3 ABG Base Excess ABG Hemoglobin Oxyhemoglobin Sodium Potassium Chloride Carbon Dioxide BUN Creatinine Glucose POC Glucose 130 H 135 H 132 H Lactic Acid Calcium Ionized Calcium Phosphorus Magnesium Direct Bilirubin AST ALT Alkaline Phosphatase Lactate Dehydrogenase Troponin T C-Reactive Protein Total Protein Albumin Prealbumin Triglycerides Cholesterol LDL Cholesterol Direct HDL Cholesterol 25-OH Vitamin D Total PTH Intact Urine pH Urine WBC (Auto) Urine Creatinine Urine Total Protein Fluid Total Protein Vancomycin Trough Rheumatoid Factor Complement C4 Miscellaneous Test Crossmatch 01/15/17 01/15/17 01/15/17 05:01 11:55 12:45 WBC 16.2 H RBC 3.00 L Hgb 8.1 L Hct 25.4 L MCV MCH 27 L MCHC RDW 17.6 H Plt Count Lymph % (Auto) 11.7 L [place] % (Auto) 7.8 H Lymph # [place] # 1.3 H Baso # Seg Neutrophils % 80.1 H Seg Neuts % (Manual) Lymphocytes % (Manual) Monocytes % (Manual) Eosinophils % (Manual) Basophils % (Manual) Nucleated RBC % Seg Neutrophils # 13.0 H Seg Neutrophils # Man Lymphocytes # (Manual) Monocytes # (Manual) Eosinophils # (Manual) Basophils # (Manual) PT INR Fibrinogen dRVVT Confirm Interp Factor V Activity POC ABG pH POC ABG pCO2 POC ABG pO2 ABG pO2 ABG HCO3 ABG Base Excess ABG Hemoglobin Oxyhemoglobin Sodium Potassium Chloride Carbon Dioxide BUN Creatinine Glucose POC Glucose 126 H 125 H Lactic Acid Calcium Ionized Calcium Phosphorus Magnesium Direct Bilirubin AST ALT Alkaline Phosphatase Lactate Dehydrogenase Troponin T C-Reactive Protein Total Protein Albumin Prealbumin Triglycerides Cholesterol LDL Cholesterol Direct HDL Cholesterol 25-OH Vitamin D Total PTH Intact Urine pH Urine WBC (Auto) Urine Creatinine Urine Total Protein Fluid Total Protein Vancomycin Trough Rheumatoid Factor Complement C4 Miscellaneous Test Crossmatch 01/15/17 01/15/17 01/15/17 12:45 17:31 23:39 WBC RBC Hgb Hct MCV MCH MCHC RDW Plt Count Lymph % (Auto) [place] % (Auto) Lymph # [place] # Baso # Seg Neutrophils % Seg Neuts % (Manual) Lymphocytes % (Manual) Monocytes % (Manual) Eosinophils % (Manual) Basophils % (Manual) Nucleated RBC % Seg Neutrophils # Seg Neutrophils # Man Lymphocytes # (Manual) Monocytes # (Manual) Eosinophils # (Manual) Basophils # (Manual) PT INR Fibrinogen dRVVT Confirm Interp Factor V Activity POC ABG pH POC ABG pCO2 POC ABG pO2 ABG pO2 ABG HCO3 ABG Base Excess ABG Hemoglobin Oxyhemoglobin Sodium 136 L Potassium Chloride Carbon Dioxide BUN 87 H Creatinine 1.7 H Glucose 108 H POC Glucose 129 H 112 H Lactic Acid Calcium Ionized Calcium Phosphorus Magnesium Direct Bilirubin AST ALT Alkaline Phosphatase Lactate Dehydrogenase Troponin T C-Reactive Protein Total Protein Albumin Prealbumin Triglycerides Cholesterol LDL Cholesterol Direct HDL Cholesterol 25-OH Vitamin D Total PTH Intact Urine pH Urine WBC (Auto) Urine Creatinine Urine Total Protein Fluid Total Protein Vancomycin Trough Rheumatoid Factor Complement C4 Miscellaneous Test Crossmatch 01/16/17 01/16/17 01/16/17 05:23 11:42 12:32 WBC RBC Hgb Hct MCV MCH MCHC RDW Plt Count Lymph % (Auto) [place] % (Auto) Lymph # [place] # Baso # Seg Neutrophils % Seg Neuts % (Manual) Lymphocytes % (Manual) Monocytes % (Manual) Eosinophils % (Manual) Basophils % (Manual) Nucleated RBC % Seg Neutrophils # Seg Neutrophils # Man Lymphocytes # (Manual) Monocytes # (Manual) Eosinophils # (Manual) Basophils # (Manual) PT INR Fibrinogen dRVVT Confirm Interp Factor V Activity POC ABG pH 7.499 H POC ABG pCO2 30.9 L POC ABG pO2 51 L ABG pO2 ABG HCO3 ABG Base Excess ABG Hemoglobin Oxyhemoglobin Sodium Potassium Chloride Carbon Dioxide BUN Creatinine Glucose POC Glucose 118 H 133 H Lactic Acid Calcium Ionized Calcium Phosphorus Magnesium Direct Bilirubin AST ALT Alkaline Phosphatase Lactate Dehydrogenase Troponin T C-Reactive Protein Total Protein Albumin Prealbumin Triglycerides Cholesterol LDL Cholesterol Direct HDL Cholesterol 25-OH Vitamin D Total PTH Intact Urine pH Urine WBC (Auto) Urine Creatinine Urine Total Protein Fluid Total Protein Vancomycin Trough Rheumatoid Factor Complement C4 Miscellaneous Test Crossmatch 01/16/17 01/16/17 01/16/17 17:52 23:57 Unknown WBC RBC Hgb Hct MCV MCH MCHC RDW Plt Count Lymph % (Auto) [place] % (Auto) Lymph # [place] # Baso # Seg Neutrophils % Seg Neuts % (Manual) Lymphocytes % (Manual) Monocytes % (Manual) Eosinophils % (Manual) Basophils % (Manual) Nucleated RBC % Seg Neutrophils # Seg Neutrophils # Man Lymphocytes # (Manual) Monocytes # (Manual) Eosinophils # (Manual) Basophils # (Manual) PT INR Fibrinogen dRVVT Confirm Interp Factor V Activity POC ABG pH POC ABG pCO2 POC ABG pO2 ABG pO2 ABG HCO3 ABG Base Excess ABG Hemoglobin Oxyhemoglobin Sodium 135 L Potassium Chloride Carbon Dioxide BUN 101 H Creatinine 1.8 H Glucose 117 H POC Glucose 130 H 143 H Lactic Acid Calcium Ionized Calcium Phosphorus 5.80 H Magnesium Direct Bilirubin AST ALT Alkaline Phosphatase Lactate Dehydrogenase Troponin T C-Reactive Protein Total Protein Albumin Prealbumin Triglycerides Cholesterol LDL Cholesterol Direct HDL Cholesterol 25-OH Vitamin D Total PTH Intact Urine pH Urine WBC (Auto) Urine Creatinine Urine Total Protein Fluid Total Protein Vancomycin Trough Rheumatoid Factor Complement C4 Miscellaneous Test Crossmatch 01/17/17 01/17/17 01/17/17 05:30 05:46 11:49 WBC RBC Hgb Hct MCV MCH MCHC RDW Plt Count Lymph % (Auto) [place] % (Auto) Lymph # [place] # Baso # Seg Neutrophils % Seg Neuts % (Manual) Lymphocytes % (Manual) Monocytes % (Manual) Eosinophils % (Manual) Basophils % (Manual) Nucleated RBC % Seg Neutrophils # Seg Neutrophils # Man Lymphocytes # (Manual) Monocytes # (Manual) Eosinophils # (Manual) Basophils # (Manual) PT INR Fibrinogen dRVVT Confirm Interp Factor V Activity POC ABG pH POC ABG pCO2 POC ABG pO2 ABG pO2 ABG HCO3 ABG Base Excess ABG Hemoglobin Oxyhemoglobin Sodium 134 L Potassium Chloride 95.8 L Carbon Dioxide BUN 66 H Creatinine 1.3 H Glucose 138 H POC Glucose 147 H 124 H Lactic Acid Calcium Ionized Calcium Phosphorus Magnesium Direct Bilirubin AST ALT Alkaline Phosphatase 254 H Lactate Dehydrogenase Troponin T C-Reactive Protein Total Protein Albumin 1.3 L Prealbumin Triglycerides Cholesterol LDL Cholesterol Direct HDL Cholesterol 25-OH Vitamin D Total PTH Intact Urine pH Urine WBC (Auto) Urine Creatinine Urine Total Protein Fluid Total Protein Vancomycin Trough Rheumatoid Factor Complement C4 Miscellaneous Test Crossmatch 01/17/17 01/17/17 01/18/17 17:30 23:41 05:15 WBC RBC Hgb Hct MCV MCH MCHC RDW Plt Count Lymph % (Auto) [place] % (Auto) Lymph # [place] # Baso # Seg Neutrophils % Seg Neuts % (Manual) Lymphocytes % (Manual) Monocytes % (Manual) Eosinophils % (Manual) Basophils % (Manual) Nucleated RBC % Seg Neutrophils # Seg Neutrophils # Man Lymphocytes # (Manual) Monocytes # (Manual) Eosinophils # (Manual) Basophils # (Manual) PT INR Fibrinogen dRVVT Confirm Interp Factor V Activity POC ABG pH POC ABG pCO2 POC ABG pO2 ABG pO2 ABG HCO3 ABG Base Excess ABG Hemoglobin Oxyhemoglobin Sodium Potassium Chloride Carbon Dioxide BUN 89 H Creatinine 1.7 H Glucose 118 H POC Glucose 137 H 119 H Lactic Acid Calcium Ionized Calcium Phosphorus Magnesium Direct Bilirubin AST ALT Alkaline Phosphatase Lactate Dehydrogenase Troponin T C-Reactive Protein Total Protein Albumin Prealbumin Triglycerides Cholesterol LDL Cholesterol Direct HDL Cholesterol 25-OH Vitamin D Total PTH Intact Urine pH Urine WBC (Auto) Urine Creatinine Urine Total Protein Fluid Total Protein Vancomycin Trough Rheumatoid Factor Complement C4 Miscellaneous Test Crossmatch 01/18/17 01/18/17 01/18/17 05:19 12:16 18:11 WBC RBC Hgb Hct MCV MCH MCHC RDW Plt Count Lymph % (Auto) [place] % (Auto) Lymph # [place] # Baso # Seg Neutrophils % Seg Neuts % (Manual) Lymphocytes % (Manual) Monocytes % (Manual) Eosinophils % (Manual) Basophils % (Manual) Nucleated RBC % Seg Neutrophils # Seg Neutrophils # Man Lymphocytes # (Manual) Monocytes # (Manual) Eosinophils # (Manual) Basophils # (Manual) PT INR Fibrinogen dRVVT Confirm Interp Factor V Activity POC ABG pH POC ABG pCO2 POC ABG pO2 ABG pO2 ABG HCO3 ABG Base Excess ABG Hemoglobin Oxyhemoglobin Sodium Potassium Chloride Carbon Dioxide BUN Creatinine Glucose POC Glucose 134 H 188 H 113 H Lactic Acid Calcium Ionized Calcium Phosphorus Magnesium Direct Bilirubin AST ALT Alkaline Phosphatase Lactate Dehydrogenase Troponin T C-Reactive Protein Total Protein Albumin Prealbumin Triglycerides Cholesterol LDL Cholesterol Direct HDL Cholesterol 25-OH Vitamin D Total PTH Intact Urine pH Urine WBC (Auto) Urine Creatinine Urine Total Protein Fluid Total Protein Vancomycin Trough Rheumatoid Factor Complement C4 Miscellaneous Test Crossmatch 01/19/17 01/19/17 01/19/17 00:00 05:30 05:36 WBC RBC Hgb Hct MCV MCH MCHC RDW Plt Count Lymph % (Auto) [place] % (Auto) Lymph # [place] # Baso # Seg Neutrophils % Seg Neuts % (Manual) Lymphocytes % (Manual) Monocytes % (Manual) Eosinophils % (Manual) Basophils % (Manual) Nucleated RBC % Seg Neutrophils # Seg Neutrophils # Man Lymphocytes # (Manual) Monocytes # (Manual) Eosinophils # (Manual) Basophils # (Manual) PT INR Fibrinogen dRVVT Confirm Interp Factor V Activity POC ABG pH POC ABG pCO2 POC ABG pO2 ABG pO2 ABG HCO3 ABG Base Excess ABG Hemoglobin Oxyhemoglobin Sodium Potassium Chloride Carbon Dioxide BUN 70 H Creatinine 1.5 H Glucose 121 H POC Glucose 137 H 155 H Lactic Acid Calcium Ionized Calcium Phosphorus 2.10 L D Magnesium Direct Bilirubin AST ALT Alkaline Phosphatase Lactate Dehydrogenase Troponin T C-Reactive Protein Total Protein Albumin Prealbumin Triglycerides Cholesterol LDL Cholesterol Direct HDL Cholesterol 25-OH Vitamin D Total PTH Intact Urine pH Urine WBC (Auto) Urine Creatinine Urine Total Protein Fluid Total Protein Vancomycin Trough Rheumatoid Factor Complement C4 Miscellaneous Test Crossmatch 01/19/17 01/19/17 01/19/17 11:59 15:32 17:57 WBC RBC Hgb Hct MCV MCH MCHC RDW Plt Count Lymph % (Auto) [place] % (Auto) Lymph # [place] # Baso # Seg Neutrophils % Seg Neuts % (Manual) Lymphocytes % (Manual) Monocytes % (Manual) Eosinophils % (Manual) Basophils % (Manual) Nucleated RBC % Seg Neutrophils # Seg Neutrophils # Man Lymphocytes # (Manual) Monocytes # (Manual) Eosinophils # (Manual) Basophils # (Manual) PT INR Fibrinogen dRVVT Confirm Interp Factor V Activity POC ABG pH POC ABG pCO2 33.1 L POC ABG pO2 76 L ABG pO2 ABG HCO3 ABG Base Excess ABG Hemoglobin Oxyhemoglobin Sodium Potassium Chloride Carbon Dioxide BUN Creatinine Glucose POC Glucose 156 H 129 H Lactic Acid Calcium Ionized Calcium Phosphorus Magnesium Direct Bilirubin AST ALT Alkaline Phosphatase Lactate Dehydrogenase Troponin T C-Reactive Protein Total Protein Albumin Prealbumin Triglycerides Cholesterol LDL Cholesterol Direct HDL Cholesterol 25-OH Vitamin D Total PTH Intact Urine pH Urine WBC (Auto) Urine Creatinine Urine Total Protein Fluid Total Protein Vancomycin Trough Rheumatoid Factor Complement C4 Miscellaneous Test Crossmatch 01/19/17 01/20/17 01/20/17 23:49 04:00 05:21 WBC RBC Hgb Hct MCV MCH MCHC RDW Plt Count Lymph % (Auto) [place] % (Auto) Lymph # [place] # Baso # Seg Neutrophils % Seg Neuts % (Manual) Lymphocytes % (Manual) Monocytes % (Manual) Eosinophils % (Manual) Basophils % (Manual) Nucleated RBC % Seg Neutrophils # Seg Neutrophils # Man Lymphocytes # (Manual) Monocytes # (Manual) Eosinophils # (Manual) Basophils # (Manual) PT INR Fibrinogen dRVVT Confirm Interp Factor V Activity POC ABG pH POC ABG pCO2 POC ABG pO2 ABG pO2 ABG HCO3 ABG Base Excess ABG Hemoglobin Oxyhemoglobin Sodium Potassium Chloride Carbon Dioxide BUN 96 H Creatinine 1.9 H Glucose 106 H POC Glucose 125 H 130 H Lactic Acid Calcium Ionized Calcium Phosphorus 2.40 L Magnesium Direct Bilirubin AST ALT Alkaline Phosphatase Lactate Dehydrogenase Troponin T C-Reactive Protein Total Protein Albumin Prealbumin Triglycerides Cholesterol LDL Cholesterol Direct HDL Cholesterol 25-OH Vitamin D Total PTH Intact Urine pH Urine WBC (Auto) Urine Creatinine Urine Total Protein Fluid Total Protein Vancomycin Trough Rheumatoid Factor Complement C4 Miscellaneous Test Crossmatch 01/20/17 01/20/17 01/20/17 11:58 12:17 17:26 WBC RBC Hgb Hct MCV MCH MCHC RDW Plt Count Lymph % (Auto) [place] % (Auto) Lymph # [place] # Baso # Seg Neutrophils % Seg Neuts % (Manual) Lymphocytes % (Manual) Monocytes % (Manual) Eosinophils % (Manual) Basophils % (Manual) Nucleated RBC % Seg Neutrophils # Seg Neutrophils # Man Lymphocytes # (Manual) Monocytes # (Manual) Eosinophils # (Manual) Basophils # (Manual) PT INR Fibrinogen dRVVT Confirm Interp Factor V Activity POC ABG pH POC ABG pCO2 POC ABG pO2 70 L ABG pO2 ABG HCO3 ABG Base Excess ABG Hemoglobin Oxyhemoglobin Sodium Potassium Chloride Carbon Dioxide BUN Creatinine Glucose POC Glucose 118 H 154 H Lactic Acid Calcium Ionized Calcium Phosphorus Magnesium Direct Bilirubin AST ALT Alkaline Phosphatase Lactate Dehydrogenase Troponin T C-Reactive Protein Total Protein Albumin Prealbumin Triglycerides Cholesterol LDL Cholesterol Direct HDL Cholesterol 25-OH Vitamin D Total PTH Intact Urine pH Urine WBC (Auto) Urine Creatinine Urine Total Protein Fluid Total Protein Vancomycin Trough Rheumatoid Factor Complement C4 Miscellaneous Test Crossmatch 01/21/17 01/21/17 01/21/17 04:00 04:56 11:46 WBC RBC Hgb Hct MCV MCH MCHC RDW Plt Count Lymph % (Auto) [place] % (Auto) Lymph # [place] # Baso # Seg Neutrophils % Seg Neuts % (Manual) Lymphocytes % (Manual) Monocytes % (Manual) Eosinophils % (Manual) Basophils % (Manual) Nucleated RBC % Seg Neutrophils # Seg Neutrophils # Man Lymphocytes # (Manual) Monocytes # (Manual) Eosinophils # (Manual) Basophils # (Manual) PT INR Fibrinogen dRVVT Confirm Interp Factor V Activity POC ABG pH POC ABG pCO2 POC ABG pO2 ABG pO2 ABG HCO3 ABG Base Excess ABG Hemoglobin Oxyhemoglobin Sodium Potassium 3.5 L Chloride 97.4 L Carbon Dioxide BUN 66 H Creatinine 1.4 H Glucose POC Glucose 116 H 106 H Lactic Acid Calcium Ionized Calcium Phosphorus 2.10 L Magnesium Direct Bilirubin AST ALT Alkaline Phosphatase Lactate Dehydrogenase Troponin T C-Reactive Protein Total Protein Albumin Prealbumin Triglycerides Cholesterol LDL Cholesterol Direct HDL Cholesterol 25-OH Vitamin D Total PTH Intact Urine pH Urine WBC (Auto) Urine Creatinine Urine Total Protein Fluid Total Protein Vancomycin Trough Rheumatoid Factor Complement C4 Miscellaneous Test Crossmatch 01/21/17 01/21/17 01/22/17 17:25 23:49 05:35 WBC RBC Hgb Hct MCV MCH MCHC RDW Plt Count Lymph % (Auto) [place] % (Auto) Lymph # [place] # Baso # Seg Neutrophils % Seg Neuts % (Manual) Lymphocytes % (Manual) Monocytes % (Manual) Eosinophils % (Manual) Basophils % (Manual) Nucleated RBC % Seg Neutrophils # Seg Neutrophils # Man Lymphocytes # (Manual) Monocytes # (Manual) Eosinophils # (Manual) Basophils # (Manual) PT INR Fibrinogen dRVVT Confirm Interp Factor V Activity POC ABG pH POC ABG pCO2 POC ABG pO2 ABG pO2 ABG HCO3 ABG Base Excess ABG Hemoglobin Oxyhemoglobin Sodium Potassium Chloride Carbon Dioxide BUN Creatinine Glucose POC Glucose 106 H 133 H 107 H Lactic Acid Calcium Ionized Calcium Phosphorus Magnesium Direct Bilirubin AST ALT Alkaline Phosphatase Lactate Dehydrogenase Troponin T C-Reactive Protein Total Protein Albumin Prealbumin Triglycerides Cholesterol LDL Cholesterol Direct HDL Cholesterol 25-OH Vitamin D Total PTH Intact Urine pH Urine WBC (Auto) Urine Creatinine Urine Total Protein Fluid Total Protein Vancomycin Trough Rheumatoid Factor Complement C4 Miscellaneous Test Crossmatch 01/22/17 01/22/17 01/22/17 07:20 07:20 11:31 WBC RBC 2.75 L Hgb 7.5 L Hct 22.7 L MCV MCH 27 L MCHC RDW 17.5 H Plt Count Lymph % (Auto) [place] % (Auto) Lymph # [place] # Baso # Seg Neutrophils % Seg Neuts % (Manual) Lymphocytes % (Manual) Monocytes % (Manual) Eosinophils % (Manual) Basophils % (Manual) Nucleated RBC % Seg Neutrophils # Seg Neutrophils # Man Lymphocytes # (Manual) Monocytes # (Manual) Eosinophils # (Manual) Basophils # (Manual) PT INR Fibrinogen dRVVT Confirm Interp Factor V Activity POC ABG pH POC ABG pCO2 POC ABG pO2 ABG pO2 ABG HCO3 ABG Base Excess ABG Hemoglobin Oxyhemoglobin Sodium Potassium 3.3 L Chloride Carbon Dioxide BUN 42 H Creatinine Glucose 105 H POC Glucose 124 H Lactic Acid Calcium Ionized Calcium Phosphorus 1.70 L Magnesium Direct Bilirubin AST ALT Alkaline Phosphatase Lactate Dehydrogenase Troponin T C-Reactive Protein Total Protein Albumin Prealbumin Triglycerides Cholesterol LDL Cholesterol Direct HDL Cholesterol 25-OH Vitamin D Total PTH Intact Urine pH Urine WBC (Auto) Urine Creatinine Urine Total Protein Fluid Total Protein Vancomycin Trough Rheumatoid Factor Complement C4 Miscellaneous Test Crossmatch 01/22/17 01/22/17 01/23/17 17:16 23:35 05:35 WBC RBC Hgb Hct MCV MCH MCHC RDW Plt Count Lymph % (Auto) [place] % (Auto) Lymph # [place] # Baso # Seg Neutrophils % Seg Neuts % (Manual) Lymphocytes % (Manual) Monocytes % (Manual) Eosinophils % (Manual) Basophils % (Manual) Nucleated RBC % Seg Neutrophils # Seg Neutrophils # Man Lymphocytes # (Manual) Monocytes # (Manual) Eosinophils # (Manual) Basophils # (Manual) PT INR Fibrinogen dRVVT Confirm Interp Factor V Activity POC ABG pH POC ABG pCO2 POC ABG pO2 ABG pO2 ABG HCO3 ABG Base Excess ABG Hemoglobin Oxyhemoglobin Sodium Potassium Chloride Carbon Dioxide BUN Creatinine Glucose POC Glucose 135 H 120 H 111 H Lactic Acid Calcium Ionized Calcium Phosphorus Magnesium Direct Bilirubin AST ALT Alkaline Phosphatase Lactate Dehydrogenase Troponin T C-Reactive Protein Total Protein Albumin Prealbumin Triglycerides Cholesterol LDL Cholesterol Direct HDL Cholesterol 25-OH Vitamin D Total PTH Intact Urine pH Urine WBC (Auto) Urine Creatinine Urine Total Protein Fluid Total Protein Vancomycin Trough Rheumatoid Factor Complement C4 Miscellaneous Test Crossmatch 01/23/17 01/23/17 01/23/17 06:10 17:27 23:44 WBC RBC Hgb Hct MCV MCH MCHC RDW Plt Count Lymph % (Auto) [place] % (Auto) Lymph # [place] # Baso # Seg Neutrophils % Seg Neuts % (Manual) Lymphocytes % (Manual) Monocytes % (Manual) Eosinophils % (Manual) Basophils % (Manual) Nucleated RBC % Seg Neutrophils # Seg Neutrophils # Man Lymphocytes # (Manual) Monocytes # (Manual) Eosinophils # (Manual) Basophils # (Manual) PT INR Fibrinogen dRVVT Confirm Interp Factor V Activity POC ABG pH POC ABG pCO2 POC ABG pO2 ABG pO2 ABG HCO3 ABG Base Excess ABG Hemoglobin Oxyhemoglobin Sodium Potassium 3.3 L Chloride Carbon Dioxide BUN 66 H Creatinine 1.3 H Glucose 109 H POC Glucose 120 H 115 H Lactic Acid Calcium Ionized Calcium Phosphorus 2.20 L D Magnesium Direct Bilirubin AST ALT Alkaline Phosphatase Lactate Dehydrogenase Troponin T C-Reactive Protein Total Protein Albumin Prealbumin Triglycerides Cholesterol LDL Cholesterol Direct HDL Cholesterol 25-OH Vitamin D Total PTH Intact Urine pH Urine WBC (Auto) Urine Creatinine Urine Total Protein Fluid Total Protein Vancomycin Trough Rheumatoid Factor Complement C4 Miscellaneous Test Crossmatch 01/24/17 01/24/17 01/24/17 05:19 05:50 12:19 WBC RBC Hgb Hct MCV MCH MCHC RDW Plt Count Lymph % (Auto) [place] % (Auto) Lymph # [place] # Baso # Seg Neutrophils % Seg Neuts % (Manual) Lymphocytes % (Manual) Monocytes % (Manual) Eosinophils % (Manual) Basophils % (Manual) Nucleated RBC % Seg Neutrophils # Seg Neutrophils # Man Lymphocytes # (Manual) Monocytes # (Manual) Eosinophils # (Manual) Basophils # (Manual) PT INR Fibrinogen dRVVT Confirm Interp Factor V Activity POC ABG pH POC ABG pCO2 POC ABG pO2 ABG pO2 ABG HCO3 ABG Base Excess ABG Hemoglobin Oxyhemoglobin Sodium Potassium Chloride Carbon Dioxide BUN 47 H Creatinine Glucose 117 H POC Glucose 126 H 119 H Lactic Acid Calcium Ionized Calcium Phosphorus 2.30 L Magnesium 1.60 L Direct Bilirubin AST ALT Alkaline Phosphatase Lactate Dehydrogenase Troponin T C-Reactive Protein Total Protein Albumin Prealbumin Triglycerides Cholesterol LDL Cholesterol Direct HDL Cholesterol 25-OH Vitamin D Total PTH Intact Urine pH Urine WBC (Auto) Urine Creatinine Urine Total Protein Fluid Total Protein Vancomycin Trough Rheumatoid Factor Complement C4 Miscellaneous Test Crossmatch 01/24/17 01/25/17 01/25/17 17:08 00:37 04:00 WBC RBC Hgb Hct MCV MCH MCHC RDW Plt Count Lymph % (Auto) [place] % (Auto) Lymph # [place] # Baso # Seg Neutrophils % Seg Neuts % (Manual) Lymphocytes % (Manual) Monocytes % (Manual) Eosinophils % (Manual) Basophils % (Manual) Nucleated RBC % Seg Neutrophils # Seg Neutrophils # Man Lymphocytes # (Manual) Monocytes # (Manual) Eosinophils # (Manual) Basophils # (Manual) PT INR Fibrinogen dRVVT Confirm Interp Factor V Activity POC ABG pH POC ABG pCO2 POC ABG pO2 ABG pO2 ABG HCO3 ABG Base Excess ABG Hemoglobin Oxyhemoglobin Sodium Potassium Chloride Carbon Dioxide BUN 72 H Creatinine 1.3 H Glucose POC Glucose 127 H 110 H Lactic Acid Calcium Ionized Calcium Phosphorus Magnesium Direct Bilirubin AST ALT Alkaline Phosphatase Lactate Dehydrogenase Troponin T C-Reactive Protein Total Protein Albumin Prealbumin Triglycerides Cholesterol LDL Cholesterol Direct HDL Cholesterol 25-OH Vitamin D Total PTH Intact Urine pH Urine WBC (Auto) Urine Creatinine Urine Total Protein Fluid Total Protein Vancomycin Trough Rheumatoid Factor Complement C4 Miscellaneous Test Crossmatch 01/25/17 01/25/17 01/25/17 04:00 11:15 13:05 WBC RBC 2.49 L Hgb 6.7 L Hct 20.9 L MCV MCH 27 L MCHC RDW 18.8 H Plt Count Lymph % (Auto) [place] % (Auto) 10.1 H Lymph # [place] # 1.0 H Baso # Seg Neutrophils % Seg Neuts % (Manual) Lymphocytes % (Manual) Monocytes % (Manual) Eosinophils % (Manual) Basophils % (Manual) Nucleated RBC % Seg Neutrophils # Seg Neutrophils # Man Lymphocytes # (Manual) Monocytes # (Manual) Eosinophils # (Manual) Basophils # (Manual) PT INR Fibrinogen dRVVT Confirm Interp Factor V Activity POC ABG pH POC ABG pCO2 POC ABG pO2 ABG pO2 ABG HCO3 ABG Base Excess ABG Hemoglobin Oxyhemoglobin Sodium Potassium Chloride Carbon Dioxide BUN Creatinine Glucose POC Glucose 128 H Lactic Acid Calcium Ionized Calcium Phosphorus Magnesium Direct Bilirubin AST ALT Alkaline Phosphatase Lactate Dehydrogenase Troponin T C-Reactive Protein Total Protein Albumin Prealbumin Triglycerides Cholesterol LDL Cholesterol Direct HDL Cholesterol 25-OH Vitamin D Total PTH Intact Urine pH Urine WBC (Auto) Urine Creatinine Urine Total Protein Fluid Total Protein Vancomycin Trough Rheumatoid Factor Complement C4 Miscellaneous Test Crossmatch See Detail 01/25/17 01/25/17 01/26/17 18:02 23:07 01:20 WBC RBC Hgb Hct MCV MCH MCHC RDW Plt Count Lymph % (Auto) [place] % (Auto) Lymph # [place] # Baso # Seg Neutrophils % Seg Neuts % (Manual) Lymphocytes % (Manual) Monocytes % (Manual) Eosinophils % (Manual) Basophils % (Manual) Nucleated RBC % Seg Neutrophils # Seg Neutrophils # Man Lymphocytes # (Manual) Monocytes # (Manual) Eosinophils # (Manual) Basophils # (Manual) PT INR Fibrinogen dRVVT Confirm Interp Factor V Activity POC ABG pH POC ABG pCO2 POC ABG pO2 ABG pO2 ABG HCO3 ABG Base Excess ABG Hemoglobin Oxyhemoglobin Sodium Potassium Chloride Carbon Dioxide BUN Creatinine Glucose POC Glucose 120 H 123 H 112 H Lactic Acid Calcium Ionized Calcium Phosphorus Magnesium Direct Bilirubin AST ALT Alkaline Phosphatase Lactate Dehydrogenase Troponin T C-Reactive Protein Total Protein Albumin Prealbumin Triglycerides Cholesterol LDL Cholesterol Direct HDL Cholesterol 25-OH Vitamin D Total PTH Intact Urine pH Urine WBC (Auto) Urine Creatinine Urine Total Protein Fluid Total Protein Vancomycin Trough Rheumatoid Factor Complement C4 Miscellaneous Test Crossmatch 01/26/17 01/26/17 01/26/17 04:20 04:20 11:23 WBC 13.1 H RBC 3.28 L Hgb 9.0 L Hct 26.9 L D MCV MCH 27 L MCHC RDW 17.2 H Plt Count Lymph % (Auto) [place] % (Auto) 9.0 H Lymph # [place] # 1.2 H Baso # Seg Neutrophils % 73.1 H Seg Neuts % (Manual) Lymphocytes % (Manual) Monocytes % (Manual) Eosinophils % (Manual) Basophils % (Manual) Nucleated RBC % Seg Neutrophils # 9.6 H Seg Neutrophils # Man Lymphocytes # (Manual) Monocytes # (Manual) Eosinophils # (Manual) Basophils # (Manual) PT INR Fibrinogen dRVVT Confirm Interp Factor V Activity POC ABG pH POC ABG pCO2 POC ABG pO2 ABG pO2 ABG HCO3 ABG Base Excess ABG Hemoglobin Oxyhemoglobin Sodium Potassium Chloride Carbon Dioxide BUN 51 H Creatinine Glucose 117 H POC Glucose 125 H Lactic Acid Calcium Ionized Calcium Phosphorus Magnesium Direct Bilirubin AST ALT Alkaline Phosphatase Lactate Dehydrogenase Troponin T C-Reactive Protein Total Protein Albumin Prealbumin Triglycerides Cholesterol LDL Cholesterol Direct HDL Cholesterol 25-OH Vitamin D Total PTH Intact Urine pH Urine WBC (Auto) Urine Creatinine Urine Total Protein Fluid Total Protein Vancomycin Trough Rheumatoid Factor Complement C4 Miscellaneous Test Crossmatch 01/26/17 01/27/17 01/27/17 17:11 00:30 04:00 WBC RBC Hgb Hct MCV MCH MCHC RDW Plt Count Lymph % (Auto) [place] % (Auto) Lymph # [place] # Baso # Seg Neutrophils % Seg Neuts % (Manual) Lymphocytes % (Manual) Monocytes % (Manual) Eosinophils % (Manual) Basophils % (Manual) Nucleated RBC % Seg Neutrophils # Seg Neutrophils # Man Lymphocytes # (Manual) Monocytes # (Manual) Eosinophils # (Manual) Basophils # (Manual) PT INR Fibrinogen dRVVT Confirm Interp Factor V Activity POC ABG pH POC ABG pCO2 POC ABG pO2 ABG pO2 ABG HCO3 ABG Base Excess ABG Hemoglobin Oxyhemoglobin Sodium Potassium Chloride 97.7 L Carbon Dioxide 21 L BUN 79 H Creatinine 1.7 H D Glucose 112 H POC Glucose 133 H 135 H Lactic Acid Calcium Ionized Calcium Phosphorus 5.00 H D Magnesium Direct Bilirubin AST ALT Alkaline Phosphatase Lactate Dehydrogenase Troponin T C-Reactive Protein Total Protein Albumin Prealbumin Triglycerides Cholesterol LDL Cholesterol Direct HDL Cholesterol 25-OH Vitamin D Total PTH Intact Urine pH Urine WBC (Auto) Urine Creatinine Urine Total Protein Fluid Total Protein Vancomycin Trough Rheumatoid Factor Complement C4 Miscellaneous Test Crossmatch 01/27/17 01/27/17 01/27/17 05:12 12:18 17:25 WBC RBC Hgb Hct MCV MCH MCHC RDW Plt Count Lymph % (Auto) [place] % (Auto) Lymph # [place] # Baso # Seg Neutrophils % Seg Neuts % (Manual) Lymphocytes % (Manual) Monocytes % (Manual) Eosinophils % (Manual) Basophils % (Manual) Nucleated RBC % Seg Neutrophils # Seg Neutrophils # Man Lymphocytes # (Manual) Monocytes # (Manual) Eosinophils # (Manual) Basophils # (Manual) PT INR Fibrinogen dRVVT Confirm Interp Factor V Activity POC ABG pH POC ABG pCO2 POC ABG pO2 ABG pO2 ABG HCO3 ABG Base Excess ABG Hemoglobin Oxyhemoglobin Sodium Potassium Chloride Carbon Dioxide BUN Creatinine Glucose POC Glucose 116 H 153 H 152 H Lactic Acid Calcium Ionized Calcium Phosphorus Magnesium Direct Bilirubin AST ALT Alkaline Phosphatase Lactate Dehydrogenase Troponin T C-Reactive Protein Total Protein Albumin Prealbumin Triglycerides Cholesterol LDL Cholesterol Direct HDL Cholesterol 25-OH Vitamin D Total PTH Intact Urine pH Urine WBC (Auto) Urine Creatinine Urine Total Protein Fluid Total Protein Vancomycin Trough Rheumatoid Factor Complement C4 Miscellaneous Test Crossmatch 01/27/17 01/28/17 01/28/17 23:42 04:00 04:00 WBC 14.4 H RBC 2.82 L Hgb 7.4 L Hct 23.5 L MCV MCH 26 L MCHC RDW 17.6 H Plt Count Lymph % (Auto) 10.2 L [place] % (Auto) 11.0 H Lymph # [place] # 1.6 H Baso # Seg Neutrophils % 78.0 H Seg Neuts % (Manual) Lymphocytes % (Manual) Monocytes % (Manual) Eosinophils % (Manual) Basophils % (Manual) Nucleated RBC % Seg Neutrophils # 11.3 H Seg Neutrophils # Man Lymphocytes # (Manual) Monocytes # (Manual) Eosinophils # (Manual) Basophils # (Manual) PT INR Fibrinogen dRVVT Confirm Interp Factor V Activity POC ABG pH POC ABG pCO2 POC ABG pO2 ABG pO2 ABG HCO3 ABG Base Excess ABG Hemoglobin Oxyhemoglobin Sodium Potassium Chloride Carbon Dioxide BUN 55 H Creatinine 1.3 H Glucose 114 H POC Glucose 121 H Lactic Acid Calcium Ionized Calcium Phosphorus Magnesium Direct Bilirubin AST ALT Alkaline Phosphatase Lactate Dehydrogenase Troponin T C-Reactive Protein Total Protein Albumin 1.4 L Prealbumin Triglycerides Cholesterol LDL Cholesterol Direct HDL Cholesterol 25-OH Vitamin D Total PTH Intact Urine pH Urine WBC (Auto) Urine Creatinine Urine Total Protein Fluid Total Protein Vancomycin Trough Rheumatoid Factor Complement C4 Miscellaneous Test Crossmatch 01/28/17 01/28/17 01/29/17 04:59 12:30 00:02 WBC RBC Hgb Hct MCV MCH MCHC RDW Plt Count Lymph % (Auto) [place] % (Auto) Lymph # [place] # Baso # Seg Neutrophils % Seg Neuts % (Manual) Lymphocytes % (Manual) Monocytes % (Manual) Eosinophils % (Manual) Basophils % (Manual) Nucleated RBC % Seg Neutrophils # Seg Neutrophils # Man Lymphocytes # (Manual) Monocytes # (Manual) Eosinophils # (Manual) Basophils # (Manual) PT INR Fibrinogen dRVVT Confirm Interp Factor V Activity POC ABG pH POC ABG pCO2 POC ABG pO2 ABG pO2 ABG HCO3 ABG Base Excess ABG Hemoglobin Oxyhemoglobin Sodium Potassium Chloride Carbon Dioxide BUN Creatinine Glucose POC Glucose 126 H 119 H 138 H Lactic Acid Calcium Ionized Calcium Phosphorus Magnesium Direct Bilirubin AST ALT Alkaline Phosphatase Lactate Dehydrogenase Troponin T C-Reactive Protein Total Protein Albumin Prealbumin Triglycerides Cholesterol LDL Cholesterol Direct HDL Cholesterol 25-OH Vitamin D Total PTH Intact Urine pH Urine WBC (Auto) Urine Creatinine Urine Total Protein Fluid Total Protein Vancomycin Trough Rheumatoid Factor Complement C4 Miscellaneous Test Crossmatch 01/29/17 01/29/17 01/29/17 04:58 06:15 11:35 WBC RBC Hgb Hct MCV MCH MCHC RDW Plt Count Lymph % (Auto) [place] % (Auto) Lymph # [place] # Baso # Seg Neutrophils % Seg Neuts % (Manual) Lymphocytes % (Manual) Monocytes % (Manual) Eosinophils % (Manual) Basophils % (Manual) Nucleated RBC % Seg Neutrophils # Seg Neutrophils # Man Lymphocytes # (Manual) Monocytes # (Manual) Eosinophils # (Manual) Basophils # (Manual) PT INR Fibrinogen dRVVT Confirm Interp Factor V Activity POC ABG pH POC ABG pCO2 POC ABG pO2 ABG pO2 ABG HCO3 ABG Base Excess ABG Hemoglobin Oxyhemoglobin Sodium Potassium Chloride Carbon Dioxide BUN 85 H Creatinine 1.7 H Glucose 105 H POC Glucose 114 H 110 H Lactic Acid Calcium Ionized Calcium Phosphorus Magnesium 2.40 H Direct Bilirubin AST ALT Alkaline Phosphatase Lactate Dehydrogenase Troponin T C-Reactive Protein Total Protein Albumin Prealbumin Triglycerides Cholesterol LDL Cholesterol Direct HDL Cholesterol 25-OH Vitamin D Total PTH Intact Urine pH Urine WBC (Auto) Urine Creatinine Urine Total Protein Fluid Total Protein Vancomycin Trough Rheumatoid Factor Complement C4 Miscellaneous Test Crossmatch 01/29/17 01/29/17 01/30/17 18:24 23:41 05:12 WBC RBC Hgb Hct MCV MCH MCHC RDW Plt Count Lymph % (Auto) [place] % (Auto) Lymph # [place] # Baso # Seg Neutrophils % Seg Neuts % (Manual) Lymphocytes % (Manual) Monocytes % (Manual) Eosinophils % (Manual) Basophils % (Manual) Nucleated RBC % Seg Neutrophils # Seg Neutrophils # Man Lymphocytes # (Manual) Monocytes # (Manual) Eosinophils # (Manual) Basophils # (Manual) PT INR Fibrinogen dRVVT Confirm Interp Factor V Activity POC ABG pH POC ABG pCO2 POC ABG pO2 ABG pO2 ABG HCO3 ABG Base Excess ABG Hemoglobin Oxyhemoglobin Sodium Potassium Chloride Carbon Dioxide BUN Creatinine Glucose POC Glucose 109 H 134 H 109 H Lactic Acid Calcium Ionized Calcium Phosphorus Magnesium Direct Bilirubin AST ALT Alkaline Phosphatase Lactate Dehydrogenase Troponin T C-Reactive Protein Total Protein Albumin Prealbumin Triglycerides Cholesterol LDL Cholesterol Direct HDL Cholesterol 25-OH Vitamin D Total PTH Intact Urine pH Urine WBC (Auto) Urine Creatinine Urine Total Protein Fluid Total Protein Vancomycin Trough Rheumatoid Factor Complement C4 Miscellaneous Test Crossmatch 01/30/17 01/30/17 01/30/17 11:26 17:43 23:39 WBC RBC Hgb Hct MCV MCH MCHC RDW Plt Count Lymph % (Auto) [place] % (Auto) Lymph # [place] # Baso # Seg Neutrophils % Seg Neuts % (Manual) Lymphocytes % (Manual) Monocytes % (Manual) Eosinophils % (Manual) Basophils % (Manual) Nucleated RBC % Seg Neutrophils # Seg Neutrophils # Man Lymphocytes # (Manual) Monocytes # (Manual) Eosinophils # (Manual) Basophils # (Manual) PT INR Fibrinogen dRVVT Confirm Interp Factor V Activity POC ABG pH POC ABG pCO2 POC ABG pO2 ABG pO2 ABG HCO3 ABG Base Excess ABG Hemoglobin Oxyhemoglobin Sodium Potassium Chloride Carbon Dioxide BUN Creatinine Glucose POC Glucose 135 H 143 H 122 H Lactic Acid Calcium Ionized Calcium Phosphorus Magnesium Direct Bilirubin AST ALT Alkaline Phosphatase Lactate Dehydrogenase Troponin T C-Reactive Protein Total Protein Albumin Prealbumin Triglycerides Cholesterol LDL Cholesterol Direct HDL Cholesterol 25-OH Vitamin D Total PTH Intact Urine pH Urine WBC (Auto) Urine Creatinine Urine Total Protein Fluid Total Protein Vancomycin Trough Rheumatoid Factor Complement C4 Miscellaneous Test Crossmatch 01/31/17 01/31/17 01/31/17 04:00 05:40 11:12 WBC RBC Hgb Hct MCV MCH MCHC RDW Plt Count Lymph % (Auto) [place] % (Auto) Lymph # [place] # Baso # Seg Neutrophils % Seg Neuts % (Manual) Lymphocytes % (Manual) Monocytes % (Manual) Eosinophils % (Manual) Basophils % (Manual) Nucleated RBC % Seg Neutrophils # Seg Neutrophils # Man Lymphocytes # (Manual) Monocytes # (Manual) Eosinophils # (Manual) Basophils # (Manual) PT INR Fibrinogen dRVVT Confirm Interp Factor V Activity POC ABG pH POC ABG pCO2 POC ABG pO2 ABG pO2 ABG HCO3 ABG Base Excess ABG Hemoglobin Oxyhemoglobin Sodium Potassium Chloride Carbon Dioxide BUN 78 H Creatinine 1.5 H Glucose 108 H POC Glucose 123 H Lactic Acid Calcium Ionized Calcium Phosphorus Magnesium Direct Bilirubin AST ALT Alkaline Phosphatase Lactate Dehydrogenase Troponin T C-Reactive Protein 8.10 H Total Protein Albumin Prealbumin Triglycerides Cholesterol LDL Cholesterol Direct HDL Cholesterol 25-OH Vitamin D Total PTH Intact Urine pH Urine WBC (Auto) Urine Creatinine Urine Total Protein Fluid Total Protein Vancomycin Trough Rheumatoid Factor Complement C4 Miscellaneous Test Crossmatch 01/31/17 01/31/17 01/31/17 11:16 17:45 17:50 WBC RBC Hgb Hct MCV MCH MCHC RDW Plt Count Lymph % (Auto) [place] % (Auto) Lymph # [place] # Baso # Seg Neutrophils % Seg Neuts % (Manual) Lymphocytes % (Manual) Monocytes % (Manual) Eosinophils % (Manual) Basophils % (Manual) Nucleated RBC % Seg Neutrophils # Seg Neutrophils # Man Lymphocytes # (Manual) Monocytes # (Manual) Eosinophils # (Manual) Basophils # (Manual) PT INR Fibrinogen dRVVT Confirm Interp Factor V Activity POC ABG pH POC ABG pCO2 POC ABG pO2 ABG pO2 ABG HCO3 ABG Base Excess ABG Hemoglobin Oxyhemoglobin Sodium Potassium Chloride Carbon Dioxide BUN Creatinine Glucose POC Glucose 119 H 111 H Lactic Acid Calcium Ionized Calcium Phosphorus Magnesium Direct Bilirubin AST ALT Alkaline Phosphatase Lactate Dehydrogenase Troponin T C-Reactive Protein Total Protein Albumin Prealbumin Triglycerides Cholesterol LDL Cholesterol Direct HDL Cholesterol 25-OH Vitamin D Total PTH Intact 6.76 L Urine pH Urine WBC (Auto) Urine Creatinine Urine Total Protein Fluid Total Protein Vancomycin Trough Rheumatoid Factor Complement C4 Miscellaneous Test Crossmatch 01/31/17 02/01/17 02/01/17 23:19 05:42 09:24 WBC RBC Hgb Hct MCV MCH MCHC RDW Plt Count Lymph % (Auto) [place] % (Auto) Lymph # [place] # Baso # Seg Neutrophils % Seg Neuts % (Manual) Lymphocytes % (Manual) Monocytes % (Manual) Eosinophils % (Manual) Basophils % (Manual) Nucleated RBC % Seg Neutrophils # Seg Neutrophils # Man Lymphocytes # (Manual) Monocytes # (Manual) Eosinophils # (Manual) Basophils # (Manual) PT INR Fibrinogen dRVVT Confirm Interp Factor V Activity POC ABG pH POC ABG pCO2 POC ABG pO2 ABG pO2 ABG HCO3 ABG Base Excess ABG Hemoglobin Oxyhemoglobin Sodium Potassium Chloride Carbon Dioxide BUN Creatinine Glucose POC Glucose 118 H 122 H Lactic Acid Calcium Ionized Calcium Phosphorus Magnesium 2.60 H Direct Bilirubin AST ALT Alkaline Phosphatase Lactate Dehydrogenase Troponin T C-Reactive Protein Total Protein Albumin Prealbumin Triglycerides Cholesterol LDL Cholesterol Direct HDL Cholesterol 25-OH Vitamin D Total PTH Intact Urine pH Urine WBC (Auto) Urine Creatinine Urine Total Protein Fluid Total Protein Vancomycin Trough Rheumatoid Factor Complement C4 Miscellaneous Test Crossmatch 02/01/17 02/01/17 02/02/17 09:24 12:15 07:40 WBC RBC Hgb Hct MCV MCH MCHC RDW Plt Count Lymph % (Auto) [place] % (Auto) Lymph # [place] # Baso # Seg Neutrophils % Seg Neuts % (Manual) Lymphocytes % (Manual) Monocytes % (Manual) Eosinophils % (Manual) Basophils % (Manual) Nucleated RBC % Seg Neutrophils # Seg Neutrophils # Man Lymphocytes # (Manual) Monocytes # (Manual) Eosinophils # (Manual) Basophils # (Manual) PT INR Fibrinogen dRVVT Confirm Interp Factor V Activity POC ABG pH POC ABG pCO2 POC ABG pO2 ABG pO2 ABG HCO3 ABG Base Excess ABG Hemoglobin Oxyhemoglobin Sodium Potassium Chloride Carbon Dioxide BUN 102 H 72 H Creatinine 1.9 H 1.5 H Glucose 120 H POC Glucose 156 H Lactic Acid Calcium Ionized Calcium Phosphorus Magnesium Direct Bilirubin AST ALT Alkaline Phosphatase Lactate Dehydrogenase Troponin T C-Reactive Protein Total Protein Albumin Prealbumin Triglycerides Cholesterol LDL Cholesterol Direct HDL Cholesterol 25-OH Vitamin D Total PTH Intact Urine pH Urine WBC (Auto) Urine Creatinine Urine Total Protein Fluid Total Protein Vancomycin Trough Rheumatoid Factor Complement C4 Miscellaneous Test Crossmatch 02/02/17 02/02/17 02/03/17 10:16 12:11 00:08 WBC 12.0 H RBC 3.08 L Hgb 8.3 L Hct 25.6 L MCV MCH 27 L MCHC RDW 18.2 H Plt Count Lymph % (Auto) [place] % (Auto) Lymph # [place] # Baso # Seg Neutrophils % 78.4 H Seg Neuts % (Manual) Lymphocytes % (Manual) Monocytes % (Manual) Eosinophils % (Manual) Basophils % (Manual) Nucleated RBC % Seg Neutrophils # 9.4 H Seg Neutrophils # Man Lymphocytes # (Manual) Monocytes # (Manual) Eosinophils # (Manual) Basophils # (Manual) PT INR Fibrinogen dRVVT Confirm Interp Factor V Activity POC ABG pH POC ABG pCO2 POC ABG pO2 ABG pO2 ABG HCO3 ABG Base Excess ABG Hemoglobin Oxyhemoglobin Sodium Potassium Chloride Carbon Dioxide BUN Creatinine Glucose POC Glucose 110 H 120 H Lactic Acid Calcium Ionized Calcium Phosphorus Magnesium Direct Bilirubin AST ALT Alkaline Phosphatase Lactate Dehydrogenase Troponin T C-Reactive Protein Total Protein Albumin Prealbumin Triglycerides Cholesterol LDL Cholesterol Direct HDL Cholesterol 25-OH Vitamin D Total PTH Intact Urine pH Urine WBC (Auto) Urine Creatinine Urine Total Protein Fluid Total Protein Vancomycin Trough Rheumatoid Factor Complement C4 Miscellaneous Test Crossmatch 02/03/17 02/03/17 02/03/17 05:41 07:38 11:31 WBC RBC Hgb Hct MCV MCH MCHC RDW Plt Count Lymph % (Auto) [place] % (Auto) Lymph # [place] # Baso # Seg Neutrophils % Seg Neuts % (Manual) Lymphocytes % (Manual) Monocytes % (Manual) Eosinophils % (Manual) Basophils % (Manual) Nucleated RBC % Seg Neutrophils # Seg Neutrophils # Man Lymphocytes # (Manual) Monocytes # (Manual) Eosinophils # (Manual) Basophils # (Manual) PT INR Fibrinogen dRVVT Confirm Interp Factor V Activity POC ABG pH POC ABG pCO2 POC ABG pO2 ABG pO2 ABG HCO3 ABG Base Excess ABG Hemoglobin Oxyhemoglobin Sodium 134 L Potassium Chloride Carbon Dioxide 21 L BUN 91 H Creatinine 1.9 H Glucose 110 H POC Glucose 119 H 119 H Lactic Acid Calcium 10.3 H Ionized Calcium Phosphorus Magnesium Direct Bilirubin AST ALT Alkaline Phosphatase Lactate Dehydrogenase Troponin T C-Reactive Protein Total Protein Albumin Prealbumin Triglycerides Cholesterol LDL Cholesterol Direct HDL Cholesterol 25-OH Vitamin D Total PTH Intact Urine pH Urine WBC (Auto) Urine Creatinine Urine Total Protein Fluid Total Protein Vancomycin Trough Rheumatoid Factor Complement C4 Miscellaneous Test Crossmatch 02/03/17 02/04/17 02/04/17 17:13 04:00 05:18 WBC RBC Hgb Hct MCV MCH MCHC RDW Plt Count Lymph % (Auto) [place] % (Auto) Lymph # [place] # Baso # Seg Neutrophils % Seg Neuts % (Manual) Lymphocytes % (Manual) Monocytes % (Manual) Eosinophils % (Manual) Basophils % (Manual) Nucleated RBC % Seg Neutrophils # Seg Neutrophils # Man Lymphocytes # (Manual) Monocytes # (Manual) Eosinophils # (Manual) Basophils # (Manual) PT INR Fibrinogen dRVVT Confirm Interp Factor V Activity POC ABG pH POC ABG pCO2 POC ABG pO2 ABG pO2 ABG HCO3 ABG Base Excess ABG Hemoglobin Oxyhemoglobin Sodium 136 L Potassium Chloride Carbon Dioxide BUN 58 H Creatinine 1.3 H Glucose 103 H POC Glucose 133 H 132 H Lactic Acid Calcium Ionized Calcium Phosphorus 2.00 L D Magnesium 1.60 L Direct Bilirubin AST ALT Alkaline Phosphatase Lactate Dehydrogenase Troponin T C-Reactive Protein Total Protein Albumin Prealbumin Triglycerides Cholesterol LDL Cholesterol Direct HDL Cholesterol 25-OH Vitamin D Total PTH Intact Urine pH Urine WBC (Auto) Urine Creatinine Urine Total Protein Fluid Total Protein Vancomycin Trough Rheumatoid Factor Complement C4 Miscellaneous Test Crossmatch 02/05/17 02/05/17 02/05/17 00:01 04:00 06:42 WBC RBC Hgb Hct MCV MCH MCHC RDW Plt Count Lymph % (Auto) [place] % (Auto) Lymph # [place] # Baso # Seg Neutrophils % Seg Neuts % (Manual) Lymphocytes % (Manual) Monocytes % (Manual) Eosinophils % (Manual) Basophils % (Manual) Nucleated RBC % Seg Neutrophils # Seg Neutrophils # Man Lymphocytes # (Manual) Monocytes # (Manual) Eosinophils # (Manual) Basophils # (Manual) PT INR Fibrinogen dRVVT Confirm Interp Factor V Activity POC ABG pH POC ABG pCO2 POC ABG pO2 ABG pO2 ABG HCO3 ABG Base Excess ABG Hemoglobin Oxyhemoglobin Sodium Potassium Chloride Carbon Dioxide BUN 83 H Creatinine 1.8 H Glucose POC Glucose 119 H 110 H Lactic Acid Calcium 10.7 H Ionized Calcium Phosphorus Magnesium Direct Bilirubin AST ALT Alkaline Phosphatase Lactate Dehydrogenase Troponin T C-Reactive Protein Total Protein Albumin Prealbumin Triglycerides Cholesterol LDL Cholesterol Direct HDL Cholesterol 25-OH Vitamin D Total PTH Intact Urine pH Urine WBC (Auto) Urine Creatinine Urine Total Protein Fluid Total Protein Vancomycin Trough Rheumatoid Factor Complement C4 Miscellaneous Test Crossmatch 02/05/17 02/05/17 02/05/17 09:59 11:47 23:44 WBC RBC 2.69 L Hgb 7.2 L Hct 22.5 L MCV MCH 27 L MCHC RDW 18.6 H Plt Count Lymph % (Auto) [place] % (Auto) 9.2 H Lymph # [place] # 0.9 H Baso # Seg Neutrophils % Seg Neuts % (Manual) Lymphocytes % (Manual) Monocytes % (Manual) Eosinophils % (Manual) Basophils % (Manual) Nucleated RBC % Seg Neutrophils # Seg Neutrophils # Man Lymphocytes # (Manual) Monocytes # (Manual) Eosinophils # (Manual) Basophils # (Manual) PT INR Fibrinogen dRVVT Confirm Interp Factor V Activity POC ABG pH POC ABG pCO2 POC ABG pO2 ABG pO2 ABG HCO3 ABG Base Excess ABG Hemoglobin Oxyhemoglobin Sodium Potassium Chloride Carbon Dioxide BUN Creatinine Glucose POC Glucose 130 H 123 H Lactic Acid Calcium Ionized Calcium Phosphorus Magnesium Direct Bilirubin AST ALT Alkaline Phosphatase Lactate Dehydrogenase Troponin T C-Reactive Protein Total Protein Albumin Prealbumin Triglycerides Cholesterol LDL Cholesterol Direct HDL Cholesterol 25-OH Vitamin D Total PTH Intact Urine pH Urine WBC (Auto) Urine Creatinine Urine Total Protein Fluid Total Protein Vancomycin Trough Rheumatoid Factor Complement C4 Miscellaneous Test Crossmatch 02/06/17 02/06/17 02/06/17 04:45 05:58 12:01 WBC RBC Hgb Hct MCV MCH MCHC RDW Plt Count Lymph % (Auto) [place] % (Auto) Lymph # [place] # Baso # Seg Neutrophils % Seg Neuts % (Manual) Lymphocytes % (Manual) Monocytes % (Manual) Eosinophils % (Manual) Basophils % (Manual) Nucleated RBC % Seg Neutrophils # Seg Neutrophils # Man Lymphocytes # (Manual) Monocytes # (Manual) Eosinophils # (Manual) Basophils # (Manual) PT INR Fibrinogen dRVVT Confirm Interp Factor V Activity POC ABG pH POC ABG pCO2 POC ABG pO2 ABG pO2 ABG HCO3 ABG Base Excess ABG Hemoglobin Oxyhemoglobin Sodium Potassium Chloride Carbon Dioxide BUN 101 H Creatinine 2.0 H Glucose 102 H POC Glucose 115 H 132 H Lactic Acid Calcium 10.6 H Ionized Calcium Phosphorus Magnesium Direct Bilirubin AST ALT Alkaline Phosphatase 199 H Lactate Dehydrogenase Troponin T C-Reactive Protein Total Protein Albumin 1.4 L Prealbumin Triglycerides Cholesterol LDL Cholesterol Direct HDL Cholesterol 25-OH Vitamin D Total PTH Intact Urine pH Urine WBC (Auto) Urine Creatinine Urine Total Protein Fluid Total Protein Vancomycin Trough Rheumatoid Factor Complement C4 Miscellaneous Test Crossmatch 02/06/17 02/06/17 02/07/17 17:41 23:32 05:04 WBC RBC Hgb Hct MCV MCH MCHC RDW Plt Count Lymph % (Auto) [place] % (Auto) Lymph # [place] # Baso # Seg Neutrophils % Seg Neuts % (Manual) Lymphocytes % (Manual) Monocytes % (Manual) Eosinophils % (Manual) Basophils % (Manual) Nucleated RBC % Seg Neutrophils # Seg Neutrophils # Man Lymphocytes # (Manual) Monocytes # (Manual) Eosinophils # (Manual) Basophils # (Manual) PT INR Fibrinogen dRVVT Confirm Interp Factor V Activity POC ABG pH POC ABG pCO2 POC ABG pO2 ABG pO2 ABG HCO3 ABG Base Excess ABG Hemoglobin Oxyhemoglobin Sodium Potassium Chloride Carbon Dioxide BUN Creatinine Glucose POC Glucose 134 H 128 H 119 H Lactic Acid Calcium Ionized Calcium Phosphorus Magnesium Direct Bilirubin AST ALT Alkaline Phosphatase Lactate Dehydrogenase Troponin T C-Reactive Protein Total Protein Albumin Prealbumin Triglycerides Cholesterol LDL Cholesterol Direct HDL Cholesterol 25-OH Vitamin D Total PTH Intact Urine pH Urine WBC (Auto) Urine Creatinine Urine Total Protein Fluid Total Protein Vancomycin Trough Rheumatoid Factor Complement C4 Miscellaneous Test Crossmatch 02/07/17 02/07/17 02/07/17 06:30 11:20 17:13 WBC RBC Hgb Hct MCV MCH MCHC RDW Plt Count Lymph % (Auto) [place] % (Auto) Lymph # [place] # Baso # Seg Neutrophils % Seg Neuts % (Manual) Lymphocytes % (Manual) Monocytes % (Manual) Eosinophils % (Manual) Basophils % (Manual) Nucleated RBC % Seg Neutrophils # Seg Neutrophils # Man Lymphocytes # (Manual) Monocytes # (Manual) Eosinophils # (Manual) Basophils # (Manual) PT INR Fibrinogen dRVVT Confirm Interp Factor V Activity POC ABG pH POC ABG pCO2 POC ABG pO2 ABG pO2 ABG HCO3 ABG Base Excess ABG Hemoglobin Oxyhemoglobin Sodium Potassium 3.4 L Chloride Carbon Dioxide BUN 69 H Creatinine 1.5 H Glucose 105 H POC Glucose 117 H 110 H Lactic Acid Calcium Ionized Calcium Phosphorus Magnesium 1.50 L Direct Bilirubin AST ALT Alkaline Phosphatase Lactate Dehydrogenase Troponin T C-Reactive Protein Total Protein Albumin Prealbumin Triglycerides Cholesterol LDL Cholesterol Direct HDL Cholesterol 25-OH Vitamin D Total PTH Intact Urine pH Urine WBC (Auto) Urine Creatinine Urine Total Protein Fluid Total Protein Vancomycin Trough Rheumatoid Factor Complement C4 Miscellaneous Test Crossmatch 02/07/17 02/08/17 02/08/17 20:47 04:00 11:43 WBC RBC Hgb Hct MCV MCH MCHC RDW Plt Count Lymph % (Auto) [place] % (Auto) Lymph # [place] # Baso # Seg Neutrophils % Seg Neuts % (Manual) Lymphocytes % (Manual) Monocytes % (Manual) Eosinophils % (Manual) Basophils % (Manual) Nucleated RBC % Seg Neutrophils # Seg Neutrophils # Man Lymphocytes # (Manual) Monocytes # (Manual) Eosinophils # (Manual) Basophils # (Manual) PT INR Fibrinogen dRVVT Confirm Interp Factor V Activity POC ABG pH POC ABG pCO2 POC ABG pO2 ABG pO2 ABG HCO3 ABG Base Excess ABG Hemoglobin Oxyhemoglobin Sodium Potassium Chloride Carbon Dioxide BUN 86 H Creatinine 1.7 H Glucose POC Glucose 115 H 122 H Lactic Acid Calcium Ionized Calcium Phosphorus Magnesium 1.60 L Direct Bilirubin AST ALT Alkaline Phosphatase Lactate Dehydrogenase Troponin T C-Reactive Protein Total Protein Albumin Prealbumin Triglycerides Cholesterol LDL Cholesterol Direct HDL Cholesterol 25-OH Vitamin D Total PTH Intact Urine pH Urine WBC (Auto) Urine Creatinine Urine Total Protein Fluid Total Protein Vancomycin Trough Rheumatoid Factor Complement C4 Miscellaneous Test Crossmatch 02/08/17 02/09/17 02/09/17 17:36 05:44 11:30 WBC RBC Hgb Hct MCV MCH MCHC RDW Plt Count Lymph % (Auto) [place] % (Auto) Lymph # [place] # Baso # Seg Neutrophils % Seg Neuts % (Manual) Lymphocytes % (Manual) Monocytes % (Manual) Eosinophils % (Manual) Basophils % (Manual) Nucleated RBC % Seg Neutrophils # Seg Neutrophils # Man Lymphocytes # (Manual) Monocytes # (Manual) Eosinophils # (Manual) Basophils # (Manual) PT INR Fibrinogen dRVVT Confirm Interp Factor V Activity POC ABG pH POC ABG pCO2 POC ABG pO2 ABG pO2 ABG HCO3 ABG Base Excess ABG Hemoglobin Oxyhemoglobin Sodium Potassium Chloride Carbon Dioxide BUN Creatinine Glucose POC Glucose 125 H 117 H 120 H Lactic Acid Calcium Ionized Calcium Phosphorus Magnesium Direct Bilirubin AST ALT Alkaline Phosphatase Lactate Dehydrogenase Troponin T C-Reactive Protein Total Protein Albumin Prealbumin Triglycerides Cholesterol LDL Cholesterol Direct HDL Cholesterol 25-OH Vitamin D Total PTH Intact Urine pH Urine WBC (Auto) Urine Creatinine Urine Total Protein Fluid Total Protein Vancomycin Trough Rheumatoid Factor Complement C4 Miscellaneous Test Crossmatch 02/09/17 02/10/17 02/10/17 23:45 05:45 05:50 WBC RBC Hgb Hct MCV MCH MCHC RDW Plt Count Lymph % (Auto) [place] % (Auto) Lymph # [place] # Baso # Seg Neutrophils % Seg Neuts % (Manual) Lymphocytes % (Manual) Monocytes % (Manual) Eosinophils % (Manual) Basophils % (Manual) Nucleated RBC % Seg Neutrophils # Seg Neutrophils # Man Lymphocytes # (Manual) Monocytes # (Manual) Eosinophils # (Manual) Basophils # (Manual) PT INR Fibrinogen dRVVT Confirm Interp Factor V Activity POC ABG pH POC ABG pCO2 POC ABG pO2 ABG pO2 ABG HCO3 ABG Base Excess ABG Hemoglobin Oxyhemoglobin Sodium Potassium Chloride Carbon Dioxide BUN 85 H Creatinine 1.8 H Glucose 109 H POC Glucose 114 H 189 H Lactic Acid Calcium Ionized Calcium Phosphorus Magnesium 2.50 H Direct Bilirubin AST ALT Alkaline Phosphatase Lactate Dehydrogenase Troponin T C-Reactive Protein Total Protein Albumin Prealbumin Triglycerides Cholesterol LDL Cholesterol Direct HDL Cholesterol 25-OH Vitamin D Total PTH Intact Urine pH Urine WBC (Auto) Urine Creatinine Urine Total Protein Fluid Total Protein Vancomycin Trough Rheumatoid Factor Complement C4 Miscellaneous Test Crossmatch 02/10/17 02/10/17 02/10/17 05:51 11:55 17:42 WBC RBC Hgb Hct MCV MCH MCHC RDW Plt Count Lymph % (Auto) [place] % (Auto) Lymph # [place] # Baso # Seg Neutrophils % Seg Neuts % (Manual) Lymphocytes % (Manual) Monocytes % (Manual) Eosinophils % (Manual) Basophils % (Manual) Nucleated RBC % Seg Neutrophils # Seg Neutrophils # Man Lymphocytes # (Manual) Monocytes # (Manual) Eosinophils # (Manual) Basophils # (Manual) PT INR Fibrinogen dRVVT Confirm Interp Factor V Activity POC ABG pH POC ABG pCO2 POC ABG pO2 ABG pO2 ABG HCO3 ABG Base Excess ABG Hemoglobin Oxyhemoglobin Sodium Potassium Chloride Carbon Dioxide BUN Creatinine Glucose POC Glucose 106 H 146 H 132 H Lactic Acid Calcium Ionized Calcium Phosphorus Magnesium Direct Bilirubin AST ALT Alkaline Phosphatase Lactate Dehydrogenase Troponin T C-Reactive Protein Total Protein Albumin Prealbumin Triglycerides Cholesterol LDL Cholesterol Direct HDL Cholesterol 25-OH Vitamin D Total PTH Intact Urine pH Urine WBC (Auto) Urine Creatinine Urine Total Protein Fluid Total Protein Vancomycin Trough Rheumatoid Factor Complement C4 Miscellaneous Test Crossmatch 02/10/17 02/11/17 02/11/17 23:43 04:08 05:34 WBC RBC Hgb Hct MCV MCH MCHC RDW Plt Count Lymph % (Auto) [place] % (Auto) Lymph # [place] # Baso # Seg Neutrophils % Seg Neuts % (Manual) Lymphocytes % (Manual) Monocytes % (Manual) Eosinophils % (Manual) Basophils % (Manual) Nucleated RBC % Seg Neutrophils # Seg Neutrophils # Man Lymphocytes # (Manual) Monocytes # (Manual) Eosinophils # (Manual) Basophils # (Manual) PT INR Fibrinogen dRVVT Confirm Interp Factor V Activity POC ABG pH POC ABG pCO2 POC ABG pO2 ABG pO2 ABG HCO3 ABG Base Excess ABG Hemoglobin Oxyhemoglobin Sodium 136 L Potassium Chloride Carbon Dioxide BUN 65 H Creatinine 1.7 H Glucose 105 H POC Glucose 130 H 113 H Lactic Acid Calcium Ionized Calcium Phosphorus Magnesium Direct Bilirubin AST ALT Alkaline Phosphatase Lactate Dehydrogenase Troponin T C-Reactive Protein Total Protein Albumin Prealbumin Triglycerides Cholesterol LDL Cholesterol Direct HDL Cholesterol 25-OH Vitamin D Total PTH Intact Urine pH Urine WBC (Auto) Urine Creatinine Urine Total Protein Fluid Total Protein Vancomycin Trough Rheumatoid Factor Complement C4 Miscellaneous Test Crossmatch 02/11/17 02/11/17 02/12/17 11:56 23:18 06:19 WBC RBC Hgb Hct MCV MCH MCHC RDW Plt Count Lymph % (Auto) [place] % (Auto) Lymph # [place] # Baso # Seg Neutrophils % Seg Neuts % (Manual) Lymphocytes % (Manual) Monocytes % (Manual) Eosinophils % (Manual) Basophils % (Manual) Nucleated RBC % Seg Neutrophils # Seg Neutrophils # Man Lymphocytes # (Manual) Monocytes # (Manual) Eosinophils # (Manual) Basophils # (Manual) PT INR Fibrinogen dRVVT Confirm Interp Factor V Activity POC ABG pH POC ABG pCO2 POC ABG pO2 ABG pO2 ABG HCO3 ABG Base Excess ABG Hemoglobin Oxyhemoglobin Sodium 136 L Potassium Chloride 97.1 L Carbon Dioxide BUN 93 H Creatinine 2.4 H Glucose POC Glucose 126 H 119 H Lactic Acid Calcium 11.0 H Ionized Calcium Phosphorus Magnesium Direct Bilirubin AST ALT Alkaline Phosphatase Lactate Dehydrogenase Troponin T C-Reactive Protein Total Protein Albumin Prealbumin Triglycerides Cholesterol LDL Cholesterol Direct HDL Cholesterol 25-OH Vitamin D Total PTH Intact Urine pH Urine WBC (Auto) Urine Creatinine Urine Total Protein Fluid Total Protein Vancomycin Trough Rheumatoid Factor Complement C4 Miscellaneous Test Crossmatch 02/12/17 02/12/17 02/12/17 08:00 10:25 11:42 WBC 15.4 H RBC 2.63 L Hgb 6.9 L Hct 22.6 L MCV MCH 26 L MCHC RDW 20.5 H Plt Count Lymph % (Auto) [place] % (Auto) Lymph # [place] # Baso # Seg Neutrophils % Seg Neuts % (Manual) Lymphocytes % (Manual) Monocytes % (Manual) Eosinophils % (Manual) Basophils % (Manual) Nucleated RBC % Seg Neutrophils # Seg Neutrophils # Man Lymphocytes # (Manual) Monocytes # (Manual) Eosinophils # (Manual) Basophils # (Manual) PT INR Fibrinogen dRVVT Confirm Interp Factor V Activity POC ABG pH POC ABG pCO2 POC ABG pO2 ABG pO2 ABG HCO3 ABG Base Excess ABG Hemoglobin Oxyhemoglobin Sodium Potassium Chloride Carbon Dioxide BUN Creatinine Glucose POC Glucose 142 H Lactic Acid Calcium Ionized Calcium Phosphorus Magnesium Direct Bilirubin AST ALT Alkaline Phosphatase Lactate Dehydrogenase Troponin T C-Reactive Protein Total Protein Albumin Prealbumin Triglycerides Cholesterol LDL Cholesterol Direct HDL Cholesterol 25-OH Vitamin D Total PTH Intact Urine pH Urine WBC (Auto) Urine Creatinine Urine Total Protein Fluid Total Protein Vancomycin Trough Rheumatoid Factor Complement C4 Miscellaneous Test Crossmatch See Detail 02/12/17 02/13/17 02/13/17 18:04 00:04 05:00 WBC RBC Hgb Hct MCV MCH MCHC RDW Plt Count Lymph % (Auto) [place] % (Auto) Lymph # [place] # Baso # Seg Neutrophils % Seg Neuts % (Manual) Lymphocytes % (Manual) Monocytes % (Manual) Eosinophils % (Manual) Basophils % (Manual) Nucleated RBC % Seg Neutrophils # Seg Neutrophils # Man Lymphocytes # (Manual) Monocytes # (Manual) Eosinophils # (Manual) Basophils # (Manual) PT INR Fibrinogen dRVVT Confirm Interp Factor V Activity POC ABG pH POC ABG pCO2 POC ABG pO2 ABG pO2 ABG HCO3 ABG Base Excess ABG Hemoglobin Oxyhemoglobin Sodium 134 L Potassium Chloride 96.1 L Carbon Dioxide 20 L BUN 125 H Creatinine 3.0 H Glucose 111 H POC Glucose 135 H 109 H Lactic Acid Calcium 11.3 H Ionized Calcium Phosphorus Magnesium Direct Bilirubin AST ALT Alkaline Phosphatase Lactate Dehydrogenase Troponin T C-Reactive Protein Total Protein Albumin Prealbumin Triglycerides Cholesterol LDL Cholesterol Direct HDL Cholesterol 25-OH Vitamin D Total PTH Intact Urine pH Urine WBC (Auto) Urine Creatinine Urine Total Protein Fluid Total Protein Vancomycin Trough Rheumatoid Factor Complement C4 Miscellaneous Test Crossmatch 02/13/17 02/13/17 02/13/17 05:00 05:28 12:03 WBC 11.9 H RBC 2.92 L Hgb 7.8 L Hct 25.2 L MCV MCH 27 L MCHC RDW 19.3 H Plt Count Lymph % (Auto) [place] % (Auto) Lymph # [place] # Baso # Seg Neutrophils % Seg Neuts % (Manual) Lymphocytes % (Manual) Monocytes % (Manual) Eosinophils % (Manual) Basophils % (Manual) Nucleated RBC % Seg Neutrophils # Seg Neutrophils # Man Lymphocytes # (Manual) Monocytes # (Manual) Eosinophils # (Manual) Basophils # (Manual) PT INR Fibrinogen dRVVT Confirm Interp Factor V Activity POC ABG pH POC ABG pCO2 POC ABG pO2 ABG pO2 ABG HCO3 ABG Base Excess ABG Hemoglobin Oxyhemoglobin Sodium Potassium Chloride Carbon Dioxide BUN Creatinine Glucose POC Glucose 124 H 160 H Lactic Acid Calcium Ionized Calcium Phosphorus Magnesium Direct Bilirubin AST ALT Alkaline Phosphatase Lactate Dehydrogenase Troponin T C-Reactive Protein Total Protein Albumin Prealbumin Triglycerides Cholesterol LDL Cholesterol Direct HDL Cholesterol 25-OH Vitamin D Total PTH Intact Urine pH Urine WBC (Auto) Urine Creatinine Urine Total Protein Fluid Total Protein Vancomycin Trough Rheumatoid Factor Complement C4 Miscellaneous Test Crossmatch 02/13/17 02/14/17 02/14/17 18:09 06:16 08:08 WBC 15.2 H RBC 2.97 L Hgb 8.1 L Hct 26.3 L MCV MCH MCHC RDW 19.3 H Plt Count Lymph % (Auto) [place] % (Auto) Lymph # [place] # Baso # Seg Neutrophils % Seg Neuts % (Manual) Lymphocytes % (Manual) Monocytes % (Manual) Eosinophils % (Manual) Basophils % (Manual) Nucleated RBC % Seg Neutrophils # Seg Neutrophils # Man Lymphocytes # (Manual) Monocytes # (Manual) Eosinophils # (Manual) Basophils # (Manual) PT INR Fibrinogen dRVVT Confirm Interp Factor V Activity POC ABG pH POC ABG pCO2 POC ABG pO2 ABG pO2 ABG HCO3 ABG Base Excess ABG Hemoglobin Oxyhemoglobin Sodium Potassium Chloride Carbon Dioxide BUN Creatinine Glucose POC Glucose 110 H 112 H Lactic Acid Calcium Ionized Calcium Phosphorus Magnesium Direct Bilirubin AST ALT Alkaline Phosphatase Lactate Dehydrogenase Troponin T C-Reactive Protein Total Protein Albumin Prealbumin Triglycerides Cholesterol LDL Cholesterol Direct HDL Cholesterol 25-OH Vitamin D Total PTH Intact Urine pH Urine WBC (Auto) Urine Creatinine Urine Total Protein Fluid Total Protein Vancomycin Trough Rheumatoid Factor Complement C4 Miscellaneous Test Crossmatch 02/14/17 02/14/17 02/15/17 08:08 17:41 04:15 WBC RBC Hgb Hct MCV MCH MCHC RDW Plt Count Lymph % (Auto) [place] % (Auto) Lymph # [place] # Baso # Seg Neutrophils % Seg Neuts % (Manual) Lymphocytes % (Manual) Monocytes % (Manual) Eosinophils % (Manual) Basophils % (Manual) Nucleated RBC % Seg Neutrophils # Seg Neutrophils # Man Lymphocytes # (Manual) Monocytes # (Manual) Eosinophils # (Manual) Basophils # (Manual) PT INR Fibrinogen dRVVT Confirm Interp Factor V Activity POC ABG pH POC ABG pCO2 POC ABG pO2 ABG pO2 ABG HCO3 ABG Base Excess ABG Hemoglobin Oxyhemoglobin Sodium Potassium Chloride Carbon Dioxide 18 L 21 L BUN 79 H 113 H Creatinine 2.1 H 2.8 H Glucose POC Glucose 118 H Lactic Acid Calcium 10.7 H Ionized Calcium Phosphorus 1.70 L D Magnesium 1.60 L Direct Bilirubin AST ALT Alkaline Phosphatase Lactate Dehydrogenase Troponin T C-Reactive Protein Total Protein Albumin Prealbumin Triglycerides Cholesterol LDL Cholesterol Direct HDL Cholesterol 25-OH Vitamin D Total PTH Intact Urine pH Urine WBC (Auto) Urine Creatinine Urine Total Protein Fluid Total Protein Vancomycin Trough Rheumatoid Factor Complement C4 Miscellaneous Test Crossmatch 02/15/17 02/15/17 02/15/17 06:06 11:31 17:52 WBC RBC Hgb Hct MCV MCH MCHC RDW Plt Count Lymph % (Auto) [place] % (Auto) Lymph # [place] # Baso # Seg Neutrophils % Seg Neuts % (Manual) Lymphocytes % (Manual) Monocytes % (Manual) Eosinophils % (Manual) Basophils % (Manual) Nucleated RBC % Seg Neutrophils # Seg Neutrophils # Man Lymphocytes # (Manual) Monocytes # (Manual) Eosinophils # (Manual) Basophils # (Manual) PT INR Fibrinogen dRVVT Confirm Interp Factor V Activity POC ABG pH POC ABG pCO2 POC ABG pO2 ABG pO2 ABG HCO3 ABG Base Excess ABG Hemoglobin Oxyhemoglobin Sodium Potassium Chloride Carbon Dioxide BUN Creatinine Glucose POC Glucose 115 H 129 H 201 H Lactic Acid Calcium Ionized Calcium Phosphorus Magnesium Direct Bilirubin AST ALT Alkaline Phosphatase Lactate Dehydrogenase Troponin T C-Reactive Protein Total Protein Albumin Prealbumin Triglycerides Cholesterol LDL Cholesterol Direct HDL Cholesterol 25-OH Vitamin D Total PTH Intact Urine pH Urine WBC (Auto) Urine Creatinine Urine Total Protein Fluid Total Protein Vancomycin Trough Rheumatoid Factor Complement C4 Miscellaneous Test Crossmatch 02/15/17 02/15/17 02/15/17 19:08 19:08 19:08 WBC RBC Hgb Hct MCV MCH MCHC RDW Plt Count Lymph % (Auto) [place] % (Auto) Lymph # [place] # Baso # Seg Neutrophils % Seg Neuts % (Manual) Lymphocytes % (Manual) Monocytes % (Manual) Eosinophils % (Manual) Basophils % (Manual) Nucleated RBC % Seg Neutrophils # Seg Neutrophils # Man Lymphocytes # (Manual) Monocytes # (Manual) Eosinophils # (Manual) Basophils # (Manual) PT INR Fibrinogen dRVVT Confirm Interp Factor V Activity POC ABG pH POC ABG pCO2 POC ABG pO2 ABG pO2 ABG HCO3 ABG Base Excess ABG Hemoglobin Oxyhemoglobin Sodium Potassium Chloride Carbon Dioxide BUN Creatinine Glucose POC Glucose Lactic Acid Calcium Ionized Calcium 6.0 H Phosphorus Magnesium Direct Bilirubin AST ALT Alkaline Phosphatase Lactate Dehydrogenase Troponin T C-Reactive Protein Total Protein Albumin Prealbumin Triglycerides Cholesterol LDL Cholesterol Direct HDL Cholesterol 25-OH Vitamin D Total 13 L PTH Intact 10.88 L Urine pH Urine WBC (Auto) Urine Creatinine Urine Total Protein Fluid Total Protein Vancomycin Trough Rheumatoid Factor Complement C4 Miscellaneous Test Crossmatch 02/16/17 02/16/17 02/16/17 05:12 06:00 12:39 WBC RBC Hgb Hct MCV MCH MCHC RDW Plt Count Lymph % (Auto) [place] % (Auto) Lymph # [place] # Baso # Seg Neutrophils % Seg Neuts % (Manual) Lymphocytes % (Manual) Monocytes % (Manual) Eosinophils % (Manual) Basophils % (Manual) Nucleated RBC % Seg Neutrophils # Seg Neutrophils # Man Lymphocytes # (Manual) Monocytes # (Manual) Eosinophils # (Manual) Basophils # (Manual) PT INR Fibrinogen dRVVT Confirm Interp Factor V Activity POC ABG pH POC ABG pCO2 POC ABG pO2 ABG pO2 ABG HCO3 ABG Base Excess ABG Hemoglobin Oxyhemoglobin Sodium Potassium Chloride Carbon Dioxide BUN 74 H Creatinine 1.7 H Glucose 102 H POC Glucose 125 H 109 H Lactic Acid Calcium Ionized Calcium Phosphorus 2.10 L D Magnesium Direct Bilirubin AST ALT Alkaline Phosphatase Lactate Dehydrogenase Troponin T C-Reactive Protein Total Protein Albumin Prealbumin Triglycerides Cholesterol LDL Cholesterol Direct HDL Cholesterol 25-OH Vitamin D Total PTH Intact Urine pH Urine WBC (Auto) Urine Creatinine Urine Total Protein Fluid Total Protein Vancomycin Trough Rheumatoid Factor Complement C4 Miscellaneous Test Crossmatch 02/16/17 02/16/17 02/17/17 17:31 23:57 05:30 WBC RBC Hgb Hct MCV MCH MCHC RDW Plt Count Lymph % (Auto) [place] % (Auto) Lymph # [place] # Baso # Seg Neutrophils % Seg Neuts % (Manual) Lymphocytes % (Manual) Monocytes % (Manual) Eosinophils % (Manual) Basophils % (Manual) Nucleated RBC % Seg Neutrophils # Seg Neutrophils # Man Lymphocytes # (Manual) Monocytes # (Manual) Eosinophils # (Manual) Basophils # (Manual) PT INR Fibrinogen dRVVT Confirm Interp Factor V Activity POC ABG pH POC ABG pCO2 POC ABG pO2 ABG pO2 ABG HCO3 ABG Base Excess ABG Hemoglobin Oxyhemoglobin Sodium Potassium Chloride Carbon Dioxide BUN Creatinine Glucose POC Glucose 106 H 127 H 122 H Lactic Acid Calcium Ionized Calcium Phosphorus Magnesium Direct Bilirubin AST ALT Alkaline Phosphatase Lactate Dehydrogenase Troponin T C-Reactive Protein Total Protein Albumin Prealbumin Triglycerides Cholesterol LDL Cholesterol Direct HDL Cholesterol 25-OH Vitamin D Total PTH Intact Urine pH Urine WBC (Auto) Urine Creatinine Urine Total Protein Fluid Total Protein Vancomycin Trough Rheumatoid Factor Complement C4 Miscellaneous Test Crossmatch 02/17/17 02/17/17 02/17/17 06:00 12:17 17:57 WBC RBC Hgb Hct MCV MCH MCHC RDW Plt Count Lymph % (Auto) [place] % (Auto) Lymph # [place] # Baso # Seg Neutrophils % Seg Neuts % (Manual) Lymphocytes % (Manual) Monocytes % (Manual) Eosinophils % (Manual) Basophils % (Manual) Nucleated RBC % Seg Neutrophils # Seg Neutrophils # Man Lymphocytes # (Manual) Monocytes # (Manual) Eosinophils # (Manual) Basophils # (Manual) PT INR Fibrinogen dRVVT Confirm Interp Factor V Activity POC ABG pH POC ABG pCO2 POC ABG pO2 ABG pO2 ABG HCO3 ABG Base Excess ABG Hemoglobin Oxyhemoglobin Sodium Potassium Chloride Carbon Dioxide BUN 94 H Creatinine 2.3 H Glucose 106 H POC Glucose 173 H 140 H Lactic Acid Calcium Ionized Calcium Phosphorus Magnesium Direct Bilirubin AST ALT Alkaline Phosphatase Lactate Dehydrogenase Troponin T C-Reactive Protein Total Protein Albumin Prealbumin Triglycerides Cholesterol LDL Cholesterol Direct HDL Cholesterol 25-OH Vitamin D Total PTH Intact Urine pH Urine WBC (Auto) Urine Creatinine Urine Total Protein Fluid Total Protein Vancomycin Trough Rheumatoid Factor Complement C4 Miscellaneous Test Crossmatch 02/18/17 02/18/17 02/18/17 00:20 05:30 06:14 WBC RBC Hgb Hct MCV MCH MCHC RDW Plt Count Lymph % (Auto) [place] % (Auto) Lymph # [place] # Baso # Seg Neutrophils % Seg Neuts % (Manual) Lymphocytes % (Manual) Monocytes % (Manual) Eosinophils % (Manual) Basophils % (Manual) Nucleated RBC % Seg Neutrophils # Seg Neutrophils # Man Lymphocytes # (Manual) Monocytes # (Manual) Eosinophils # (Manual) Basophils # (Manual) PT INR Fibrinogen dRVVT Confirm Interp Factor V Activity POC ABG pH POC ABG pCO2 POC ABG pO2 ABG pO2 ABG HCO3 ABG Base Excess ABG Hemoglobin Oxyhemoglobin Sodium 136 L Potassium Chloride 97.5 L Carbon Dioxide BUN 73 H Creatinine 1.9 H Glucose POC Glucose 132 H 106 H Lactic Acid Calcium Ionized Calcium Phosphorus Magnesium Direct Bilirubin AST ALT Alkaline Phosphatase Lactate Dehydrogenase Troponin T C-Reactive Protein Total Protein Albumin Prealbumin Triglycerides Cholesterol LDL Cholesterol Direct HDL Cholesterol 25-OH Vitamin D Total PTH Intact Urine pH Urine WBC (Auto) Urine Creatinine Urine Total Protein Fluid Total Protein Vancomycin Trough Rheumatoid Factor Complement C4 Miscellaneous Test Crossmatch 02/18/17 02/18/17 02/18/17 09:51 11:32 17:59 WBC 13.1 H RBC 2.77 L Hgb 7.6 L Hct 23.9 L MCV MCH MCHC RDW 19.0 H Plt Count Lymph % (Auto) [place] % (Auto) 11.1 H Lymph # [place] # 1.5 H Baso # Seg Neutrophils % Seg Neuts % (Manual) Lymphocytes % (Manual) Monocytes % (Manual) Eosinophils % (Manual) Basophils % (Manual) Nucleated RBC % Seg Neutrophils # 9.1 H Seg Neutrophils # Man Lymphocytes # (Manual) Monocytes # (Manual) Eosinophils # (Manual) Basophils # (Manual) PT INR Fibrinogen dRVVT Confirm Interp Factor V Activity POC ABG pH POC ABG pCO2 POC ABG pO2 ABG pO2 ABG HCO3 ABG Base Excess ABG Hemoglobin Oxyhemoglobin Sodium Potassium Chloride Carbon Dioxide BUN Creatinine Glucose POC Glucose 123 H 119 H Lactic Acid Calcium Ionized Calcium Phosphorus Magnesium Direct Bilirubin AST ALT Alkaline Phosphatase Lactate Dehydrogenase Troponin T C-Reactive Protein Total Protein Albumin Prealbumin Triglycerides Cholesterol LDL Cholesterol Direct HDL Cholesterol 25-OH Vitamin D Total PTH Intact Urine pH Urine WBC (Auto) Urine Creatinine Urine Total Protein Fluid Total Protein Vancomycin Trough Rheumatoid Factor Complement C4 Miscellaneous Test Crossmatch 02/18/17 02/19/17 02/19/17 23:47 05:36 09:45 WBC RBC Hgb Hct MCV MCH 27 L MCHC RDW 19.2 H Plt Count Lymph % (Auto) [place] % (Auto) Lymph # [place] # Baso # Seg Neutrophils % Seg Neuts % (Manual) Lymphocytes % (Manual) Monocytes % (Manual) Eosinophils % (Manual) Basophils % (Manual) Nucleated RBC % Seg Neutrophils # Seg Neutrophils # Man Lymphocytes # (Manual) Monocytes # (Manual) Eosinophils # (Manual) Basophils # (Manual) PT INR Fibrinogen dRVVT Confirm Interp Factor V Activity POC ABG pH POC ABG pCO2 POC ABG pO2 ABG pO2 ABG HCO3 ABG Base Excess ABG Hemoglobin Oxyhemoglobin Sodium Potassium Chloride Carbon Dioxide BUN Creatinine Glucose POC Glucose 110 H 121 H Lactic Acid Calcium Ionized Calcium Phosphorus Magnesium Direct Bilirubin AST ALT Alkaline Phosphatase Lactate Dehydrogenase Troponin T C-Reactive Protein Total Protein Albumin Prealbumin Triglycerides Cholesterol LDL Cholesterol Direct HDL Cholesterol 25-OH Vitamin D Total PTH Intact Urine pH Urine WBC (Auto) Urine Creatinine Urine Total Protein Fluid Total Protein Vancomycin Trough Rheumatoid Factor Complement C4 Miscellaneous Test Crossmatch 02/19/17 02/20/17 02/20/17 09:45 00:10 06:15 WBC RBC Hgb Hct MCV MCH MCHC RDW Plt Count Lymph % (Auto) [place] % (Auto) Lymph # [place] # Baso # Seg Neutrophils % Seg Neuts % (Manual) Lymphocytes % (Manual) Monocytes % (Manual) Eosinophils % (Manual) Basophils % (Manual) Nucleated RBC % Seg Neutrophils # Seg Neutrophils # Man Lymphocytes # (Manual) Monocytes # (Manual) Eosinophils # (Manual) Basophils # (Manual) PT INR Fibrinogen dRVVT Confirm Interp Factor V Activity POC ABG pH POC ABG pCO2 POC ABG pO2 ABG pO2 ABG HCO3 ABG Base Excess ABG Hemoglobin Oxyhemoglobin Sodium 136 L Potassium 5.1 H Chloride 97.6 L Carbon Dioxide 20 L 18 L BUN 110 H 135 H Creatinine 2.6 H 3.2 H Glucose 106 H 110 H POC Glucose 117 H Lactic Acid Calcium Ionized Calcium Phosphorus 4.70 H D 5.60 H Magnesium Direct Bilirubin AST ALT Alkaline Phosphatase Lactate Dehydrogenase Troponin T C-Reactive Protein Total Protein Albumin Prealbumin Triglycerides Cholesterol LDL Cholesterol Direct HDL Cholesterol 25-OH Vitamin D Total PTH Intact Urine pH Urine WBC (Auto) Urine Creatinine Urine Total Protein Fluid Total Protein Vancomycin Trough Rheumatoid Factor Complement C4 Miscellaneous Test Crossmatch 02/20/17 02/20/17 02/21/17 11:30 17:51 00:14 WBC RBC Hgb Hct MCV MCH MCHC RDW Plt Count Lymph % (Auto) [place] % (Auto) Lymph # [place] # Baso # Seg Neutrophils % Seg Neuts % (Manual) Lymphocytes % (Manual) Monocytes % (Manual) Eosinophils % (Manual) Basophils % (Manual) Nucleated RBC % Seg Neutrophils # Seg Neutrophils # Man Lymphocytes # (Manual) Monocytes # (Manual) Eosinophils # (Manual) Basophils # (Manual) PT INR Fibrinogen dRVVT Confirm Interp Factor V Activity POC ABG pH POC ABG pCO2 POC ABG pO2 ABG pO2 ABG HCO3 ABG Base Excess ABG Hemoglobin Oxyhemoglobin Sodium Potassium Chloride Carbon Dioxide BUN Creatinine Glucose POC Glucose 173 H 133 H 125 H Lactic Acid Calcium Ionized Calcium Phosphorus Magnesium Direct Bilirubin AST ALT Alkaline Phosphatase Lactate Dehydrogenase Troponin T C-Reactive Protein Total Protein Albumin Prealbumin Triglycerides Cholesterol LDL Cholesterol Direct HDL Cholesterol 25-OH Vitamin D Total PTH Intact Urine pH Urine WBC (Auto) Urine Creatinine Urine Total Protein Fluid Total Protein Vancomycin Trough Rheumatoid Factor Complement C4 Miscellaneous Test Crossmatch 02/21/17 02/21/17 02/21/17 04:09 05:03 11:58 WBC RBC Hgb Hct MCV MCH MCHC RDW Plt Count Lymph % (Auto) [place] % (Auto) Lymph # [place] # Baso # Seg Neutrophils % Seg Neuts % (Manual) Lymphocytes % (Manual) Monocytes % (Manual) Eosinophils % (Manual) Basophils % (Manual) Nucleated RBC % Seg Neutrophils # Seg Neutrophils # Man Lymphocytes # (Manual) Monocytes # (Manual) Eosinophils # (Manual) Basophils # (Manual) PT INR Fibrinogen dRVVT Confirm Interp Factor V Activity POC ABG pH POC ABG pCO2 POC ABG pO2 ABG pO2 ABG HCO3 ABG Base Excess ABG Hemoglobin Oxyhemoglobin Sodium 135 L Potassium Chloride Carbon Dioxide 20 L BUN 76 H Creatinine 2.0 H Glucose 125 H POC Glucose 134 H 139 H Lactic Acid Calcium Ionized Calcium Phosphorus Magnesium Direct Bilirubin AST ALT Alkaline Phosphatase Lactate Dehydrogenase Troponin T C-Reactive Protein Total Protein Albumin Prealbumin Triglycerides Cholesterol LDL Cholesterol Direct HDL Cholesterol 25-OH Vitamin D Total PTH Intact Urine pH Urine WBC (Auto) Urine Creatinine Urine Total Protein Fluid Total Protein Vancomycin Trough Rheumatoid Factor Complement C4 Miscellaneous Test Crossmatch 02/21/17 02/21/17 02/22/17 17:16 23:41 04:10 WBC RBC Hgb Hct MCV MCH MCHC RDW Plt Count Lymph % (Auto) [place] % (Auto) Lymph # [place] # Baso # Seg Neutrophils % Seg Neuts % (Manual) Lymphocytes % (Manual) Monocytes % (Manual) Eosinophils % (Manual) Basophils % (Manual) Nucleated RBC % Seg Neutrophils # Seg Neutrophils # Man Lymphocytes # (Manual) Monocytes # (Manual) Eosinophils # (Manual) Basophils # (Manual) PT INR Fibrinogen dRVVT Confirm Interp Factor V Activity POC ABG pH POC ABG pCO2 POC ABG pO2 ABG pO2 ABG HCO3 ABG Base Excess ABG Hemoglobin Oxyhemoglobin Sodium 135 L Potassium Chloride 97.7 L Carbon Dioxide 21 L BUN 101 H Creatinine 2.5 H Glucose 116 H POC Glucose 120 H 128 H Lactic Acid Calcium Ionized Calcium Phosphorus Magnesium Direct Bilirubin AST ALT Alkaline Phosphatase Lactate Dehydrogenase Troponin T C-Reactive Protein Total Protein Albumin 1.3 L Prealbumin Triglycerides Cholesterol LDL Cholesterol Direct HDL Cholesterol 25-OH Vitamin D Total PTH Intact Urine pH Urine WBC (Auto) Urine Creatinine Urine Total Protein Fluid Total Protein Vancomycin Trough Rheumatoid Factor Complement C4 Miscellaneous Test Crossmatch 02/22/17 02/22/17 02/22/17 06:03 11:38 18:19 WBC RBC Hgb Hct MCV MCH MCHC RDW Plt Count Lymph % (Auto) [place] % (Auto) Lymph # [place] # Baso # Seg Neutrophils % Seg Neuts % (Manual) Lymphocytes % (Manual) Monocytes % (Manual) Eosinophils % (Manual) Basophils % (Manual) Nucleated RBC % Seg Neutrophils # Seg Neutrophils # Man Lymphocytes # (Manual) Monocytes # (Manual) Eosinophils # (Manual) Basophils # (Manual) PT INR Fibrinogen dRVVT Confirm Interp Factor V Activity POC ABG pH POC ABG pCO2 POC ABG pO2 ABG pO2 ABG HCO3 ABG Base Excess ABG Hemoglobin Oxyhemoglobin Sodium Potassium Chloride Carbon Dioxide BUN Creatinine Glucose POC Glucose 126 H 147 H 121 H Lactic Acid Calcium Ionized Calcium Phosphorus Magnesium Direct Bilirubin AST ALT Alkaline Phosphatase Lactate Dehydrogenase Troponin T C-Reactive Protein Total Protein Albumin Prealbumin Triglycerides Cholesterol LDL Cholesterol Direct HDL Cholesterol 25-OH Vitamin D Total PTH Intact Urine pH Urine WBC (Auto) Urine Creatinine Urine Total Protein Fluid Total Protein Vancomycin Trough Rheumatoid Factor Complement C4 Miscellaneous Test Crossmatch 02/23/17 02/23/17 02/23/17 05:00 05:46 12:27 WBC RBC Hgb Hct MCV MCH MCHC RDW Plt Count Lymph % (Auto) [place] % (Auto) Lymph # [place] # Baso # Seg Neutrophils % Seg Neuts % (Manual) Lymphocytes % (Manual) Monocytes % (Manual) Eosinophils % (Manual) Basophils % (Manual) Nucleated RBC % Seg Neutrophils # Seg Neutrophils # Man Lymphocytes # (Manual) Monocytes # (Manual) Eosinophils # (Manual) Basophils # (Manual) PT INR Fibrinogen dRVVT Confirm Interp Factor V Activity POC ABG pH POC ABG pCO2 POC ABG pO2 ABG pO2 ABG HCO3 ABG Base Excess ABG Hemoglobin Oxyhemoglobin Sodium 136 L Potassium Chloride 97.1 L Carbon Dioxide BUN 50 H Creatinine 1.5 H Glucose POC Glucose 110 H 115 H Lactic Acid Calcium 8.1 L Ionized Calcium Phosphorus 1.90 L D Magnesium Direct Bilirubin AST ALT Alkaline Phosphatase Lactate Dehydrogenase Troponin T C-Reactive Protein Total Protein Albumin Prealbumin Triglycerides Cholesterol LDL Cholesterol Direct HDL Cholesterol 25-OH Vitamin D Total PTH Intact Urine pH Urine WBC (Auto) Urine Creatinine Urine Total Protein Fluid Total Protein Vancomycin Trough Rheumatoid Factor Complement C4 Miscellaneous Test Crossmatch 02/23/17 02/23/17 02/24/17 18:02 23:18 05:04 WBC RBC Hgb Hct MCV MCH MCHC RDW Plt Count Lymph % (Auto) [place] % (Auto) Lymph # [place] # Baso # Seg Neutrophils % Seg Neuts % (Manual) Lymphocytes % (Manual) Monocytes % (Manual) Eosinophils % (Manual) Basophils % (Manual) Nucleated RBC % Seg Neutrophils # Seg Neutrophils # Man Lymphocytes # (Manual) Monocytes # (Manual) Eosinophils # (Manual) Basophils # (Manual) PT INR Fibrinogen dRVVT Confirm Interp Factor V Activity POC ABG pH POC ABG pCO2 POC ABG pO2 ABG pO2 ABG HCO3 ABG Base Excess ABG Hemoglobin Oxyhemoglobin Sodium Potassium Chloride Carbon Dioxide BUN Creatinine Glucose POC Glucose 111 H 126 H 121 H Lactic Acid Calcium Ionized Calcium Phosphorus Magnesium Direct Bilirubin AST ALT Alkaline Phosphatase Lactate Dehydrogenase Troponin T C-Reactive Protein Total Protein Albumin Prealbumin Triglycerides Cholesterol LDL Cholesterol Direct HDL Cholesterol 25-OH Vitamin D Total PTH Intact Urine pH Urine WBC (Auto) Urine Creatinine Urine Total Protein Fluid Total Protein Vancomycin Trough Rheumatoid Factor Complement C4 Miscellaneous Test Crossmatch 02/24/17 02/24/17 02/24/17 05:20 10:05 11:34 WBC RBC 2.95 L Hgb 8.4 L Hct 25.7 L MCV MCH MCHC RDW 20.8 H Plt Count Lymph % (Auto) [place] % (Auto) Lymph # [place] # Baso # Seg Neutrophils % 71.8 H Seg Neuts % (Manual) Lymphocytes % (Manual) Monocytes % (Manual) Eosinophils % (Manual) Basophils % (Manual) Nucleated RBC % Seg Neutrophils # Seg Neutrophils # Man Lymphocytes # (Manual) Monocytes # (Manual) Eosinophils # (Manual) Basophils # (Manual) PT INR Fibrinogen dRVVT Confirm Interp Factor V Activity POC ABG pH POC ABG pCO2 POC ABG pO2 ABG pO2 ABG HCO3 ABG Base Excess ABG Hemoglobin Oxyhemoglobin Sodium 136 L Potassium Chloride 95.5 L Carbon Dioxide BUN 76 H Creatinine 2.2 H Glucose 109 H POC Glucose 123 H Lactic Acid Calcium Ionized Calcium Phosphorus Magnesium Direct Bilirubin AST ALT Alkaline Phosphatase Lactate Dehydrogenase Troponin T C-Reactive Protein Total Protein Albumin Prealbumin Triglycerides Cholesterol LDL Cholesterol Direct HDL Cholesterol 25-OH Vitamin D Total PTH Intact Urine pH Urine WBC (Auto) Urine Creatinine Urine Total Protein Fluid Total Protein Vancomycin Trough Rheumatoid Factor Complement C4 Miscellaneous Test Crossmatch 02/24/17 02/24/17 02/25/17 17:43 23:02 05:00 WBC RBC Hgb Hct MCV MCH MCHC RDW Plt Count Lymph % (Auto) [place] % (Auto) Lymph # [place] # Baso # Seg Neutrophils % Seg Neuts % (Manual) Lymphocytes % (Manual) Monocytes % (Manual) Eosinophils % (Manual) Basophils % (Manual) Nucleated RBC % Seg Neutrophils # Seg Neutrophils # Man Lymphocytes # (Manual) Monocytes # (Manual) Eosinophils # (Manual) Basophils # (Manual) PT INR Fibrinogen dRVVT Confirm Interp Factor V Activity POC ABG pH POC ABG pCO2 POC ABG pO2 ABG pO2 ABG HCO3 ABG Base Excess ABG Hemoglobin Oxyhemoglobin Sodium Potassium Chloride 96.8 L Carbon Dioxide BUN 94 H Creatinine 2.8 H Glucose 118 H POC Glucose 128 H 144 H Lactic Acid Calcium Ionized Calcium Phosphorus Magnesium Direct Bilirubin AST ALT Alkaline Phosphatase Lactate Dehydrogenase Troponin T C-Reactive Protein Total Protein Albumin Prealbumin Triglycerides Cholesterol LDL Cholesterol Direct HDL Cholesterol 25-OH Vitamin D Total PTH Intact Urine pH Urine WBC (Auto) Urine Creatinine Urine Total Protein Fluid Total Protein Vancomycin Trough Rheumatoid Factor Complement C4 Miscellaneous Test Crossmatch 02/25/17 02/25/17 02/25/17 05:32 11:44 18:18 WBC RBC Hgb Hct MCV MCH MCHC RDW Plt Count Lymph % (Auto) [place] % (Auto) Lymph # [place] # Baso # Seg Neutrophils % Seg Neuts % (Manual) Lymphocytes % (Manual) Monocytes % (Manual) Eosinophils % (Manual) Basophils % (Manual) Nucleated RBC % Seg Neutrophils # Seg Neutrophils # Man Lymphocytes # (Manual) Monocytes # (Manual) Eosinophils # (Manual) Basophils # (Manual) PT INR Fibrinogen dRVVT Confirm Interp Factor V Activity POC ABG pH POC ABG pCO2 POC ABG pO2 ABG pO2 ABG HCO3 ABG Base Excess ABG Hemoglobin Oxyhemoglobin Sodium Potassium Chloride Carbon Dioxide BUN Creatinine Glucose POC Glucose 118 H 106 H 210 H Lactic Acid Calcium Ionized Calcium Phosphorus Magnesium Direct Bilirubin AST ALT Alkaline Phosphatase Lactate Dehydrogenase Troponin T C-Reactive Protein Total Protein Albumin Prealbumin Triglycerides Cholesterol LDL Cholesterol Direct HDL Cholesterol 25-OH Vitamin D Total PTH Intact Urine pH Urine WBC (Auto) Urine Creatinine Urine Total Protein Fluid Total Protein Vancomycin Trough Rheumatoid Factor Complement C4 Miscellaneous Test Crossmatch 02/26/17 02/26/17 02/26/17 00:07 05:14 12:07 WBC RBC Hgb Hct MCV MCH MCHC RDW Plt Count Lymph % (Auto) [place] % (Auto) Lymph # [place] # Baso # Seg Neutrophils % Seg Neuts % (Manual) Lymphocytes % (Manual) Monocytes % (Manual) Eosinophils % (Manual) Basophils % (Manual) Nucleated RBC % Seg Neutrophils # Seg Neutrophils # Man Lymphocytes # (Manual) Monocytes # (Manual) Eosinophils # (Manual) Basophils # (Manual) PT INR Fibrinogen dRVVT Confirm Interp Factor V Activity POC ABG pH POC ABG pCO2 POC ABG pO2 ABG pO2 ABG HCO3 ABG Base Excess ABG Hemoglobin Oxyhemoglobin Sodium Potassium Chloride Carbon Dioxide BUN Creatinine Glucose POC Glucose 136 H 142 H 132 H Lactic Acid Calcium Ionized Calcium Phosphorus Magnesium Direct Bilirubin AST ALT Alkaline Phosphatase Lactate Dehydrogenase Troponin T C-Reactive Protein Total Protein Albumin Prealbumin Triglycerides Cholesterol LDL Cholesterol Direct HDL Cholesterol 25-OH Vitamin D Total PTH Intact Urine pH Urine WBC (Auto) Urine Creatinine Urine Total Protein Fluid Total Protein Vancomycin Trough Rheumatoid Factor Complement C4 Miscellaneous Test Crossmatch 02/26/17 02/26/17 02/27/17 18:35 23:54 06:25 WBC RBC Hgb Hct MCV MCH MCHC RDW Plt Count Lymph % (Auto) [place] % (Auto) Lymph # [place] # Baso # Seg Neutrophils % Seg Neuts % (Manual) Lymphocytes % (Manual) Monocytes % (Manual) Eosinophils % (Manual) Basophils % (Manual) Nucleated RBC % Seg Neutrophils # Seg Neutrophils # Man Lymphocytes # (Manual) Monocytes # (Manual) Eosinophils # (Manual) Basophils # (Manual) PT INR Fibrinogen dRVVT Confirm Interp Factor V Activity POC ABG pH POC ABG pCO2 POC ABG pO2 ABG pO2 ABG HCO3 ABG Base Excess ABG Hemoglobin Oxyhemoglobin Sodium Potassium Chloride Carbon Dioxide BUN Creatinine Glucose POC Glucose 155 H 150 H 138 H Lactic Acid Calcium Ionized Calcium Phosphorus Magnesium Direct Bilirubin AST ALT Alkaline Phosphatase Lactate Dehydrogenase Troponin T C-Reactive Protein Total Protein Albumin Prealbumin Triglycerides Cholesterol LDL Cholesterol Direct HDL Cholesterol 25-OH Vitamin D Total PTH Intact Urine pH Urine WBC (Auto) Urine Creatinine Urine Total Protein Fluid Total Protein Vancomycin Trough Rheumatoid Factor Complement C4 Miscellaneous Test Crossmatch 02/27/17 02/27/17 02/27/17 08:50 11:50 17:38 WBC RBC Hgb Hct MCV MCH MCHC RDW Plt Count Lymph % (Auto) [place] % (Auto) Lymph # [place] # Baso # Seg Neutrophils % Seg Neuts % (Manual) Lymphocytes % (Manual) Monocytes % (Manual) Eosinophils % (Manual) Basophils % (Manual) Nucleated RBC % Seg Neutrophils # Seg Neutrophils # Man Lymphocytes # (Manual) Monocytes # (Manual) Eosinophils # (Manual) Basophils # (Manual) PT INR Fibrinogen dRVVT Confirm Interp Factor V Activity POC ABG pH POC ABG pCO2 POC ABG pO2 ABG pO2 ABG HCO3 ABG Base Excess ABG Hemoglobin Oxyhemoglobin Sodium Potassium 3.2 L Chloride Carbon Dioxide BUN 95 H Creatinine 2.7 H Glucose 179 H POC Glucose 150 H 133 H Lactic Acid Calcium Ionized Calcium Phosphorus Magnesium Direct Bilirubin AST ALT Alkaline Phosphatase Lactate Dehydrogenase Troponin T C-Reactive Protein Total Protein Albumin Prealbumin Triglycerides Cholesterol LDL Cholesterol Direct HDL Cholesterol 25-OH Vitamin D Total PTH Intact Urine pH Urine WBC (Auto) Urine Creatinine Urine Total Protein Fluid Total Protein Vancomycin Trough Rheumatoid Factor Complement C4 Miscellaneous Test Crossmatch 02/27/17 02/28/17 02/28/17 23:55 05:23 06:10 WBC RBC Hgb Hct MCV MCH MCHC RDW Plt Count Lymph % (Auto) [place] % (Auto) Lymph # [place] # Baso # Seg Neutrophils % Seg Neuts % (Manual) Lymphocytes % (Manual) Monocytes % (Manual) Eosinophils % (Manual) Basophils % (Manual) Nucleated RBC % Seg Neutrophils # Seg Neutrophils # Man Lymphocytes # (Manual) Monocytes # (Manual) Eosinophils # (Manual) Basophils # (Manual) PT INR Fibrinogen dRVVT Confirm Interp Factor V Activity POC ABG pH POC ABG pCO2 POC ABG pO2 ABG pO2 ABG HCO3 ABG Base Excess ABG Hemoglobin Oxyhemoglobin Sodium 134 L Potassium 3.0 L Chloride 94.9 L Carbon Dioxide BUN 53 H Creatinine 1.9 H Glucose 138 H POC Glucose 134 H 164 H Lactic Acid Calcium Ionized Calcium Phosphorus 2.00 L D Magnesium Direct Bilirubin AST ALT Alkaline Phosphatase Lactate Dehydrogenase Troponin T C-Reactive Protein Total Protein Albumin Prealbumin Triglycerides Cholesterol LDL Cholesterol Direct HDL Cholesterol 25-OH Vitamin D Total PTH Intact Urine pH Urine WBC (Auto) Urine Creatinine Urine Total Protein Fluid Total Protein Vancomycin Trough Rheumatoid Factor Complement C4 Miscellaneous Test Crossmatch 02/28/17 02/28/17 02/28/17 12:18 17:54 23:47 WBC RBC Hgb Hct MCV MCH MCHC RDW Plt Count Lymph % (Auto) [place] % (Auto) Lymph # [place] # Baso # Seg Neutrophils % Seg Neuts % (Manual) Lymphocytes % (Manual) Monocytes % (Manual) Eosinophils % (Manual) Basophils % (Manual) Nucleated RBC % Seg Neutrophils # Seg Neutrophils # Man Lymphocytes # (Manual) Monocytes # (Manual) Eosinophils # (Manual) Basophils # (Manual) PT INR Fibrinogen dRVVT Confirm Interp Factor V Activity POC ABG pH POC ABG pCO2 POC ABG pO2 ABG pO2 ABG HCO3 ABG Base Excess ABG Hemoglobin Oxyhemoglobin Sodium Potassium Chloride Carbon Dioxide BUN Creatinine Glucose POC Glucose 135 H 140 H 144 H Lactic Acid Calcium Ionized Calcium Phosphorus Magnesium Direct Bilirubin AST ALT Alkaline Phosphatase Lactate Dehydrogenase Troponin T C-Reactive Protein Total Protein Albumin Prealbumin Triglycerides Cholesterol LDL Cholesterol Direct HDL Cholesterol 25-OH Vitamin D Total PTH Intact Urine pH Urine WBC (Auto) Urine Creatinine Urine Total Protein Fluid Total Protein Vancomycin Trough Rheumatoid Factor Complement C4 Miscellaneous Test Crossmatch 03/01/17 03/01/17 03/01/17 04:00 12:02 17:13 WBC RBC Hgb Hct MCV MCH MCHC RDW Plt Count Lymph % (Auto) [place] % (Auto) Lymph # [place] # Baso # Seg Neutrophils % Seg Neuts % (Manual) Lymphocytes % (Manual) Monocytes % (Manual) Eosinophils % (Manual) Basophils % (Manual) Nucleated RBC % Seg Neutrophils # Seg Neutrophils # Man Lymphocytes # (Manual) Monocytes # (Manual) Eosinophils # (Manual) Basophils # (Manual) PT INR Fibrinogen dRVVT Confirm Interp Factor V Activity POC ABG pH POC ABG pCO2 POC ABG pO2 ABG pO2 ABG HCO3 ABG Base Excess ABG Hemoglobin Oxyhemoglobin Sodium Potassium 3.0 L Chloride 97.0 L Carbon Dioxide BUN 81 H Creatinine 2.6 H Glucose 121 H POC Glucose 165 H 126 H Lactic Acid Calcium Ionized Calcium Phosphorus Magnesium Direct Bilirubin AST ALT Alkaline Phosphatase Lactate Dehydrogenase Troponin T C-Reactive Protein Total Protein Albumin Prealbumin Triglycerides Cholesterol LDL Cholesterol Direct HDL Cholesterol 25-OH Vitamin D Total PTH Intact Urine pH Urine WBC (Auto) Urine Creatinine Urine Total Protein Fluid Total Protein Vancomycin Trough Rheumatoid Factor Complement C4 Miscellaneous Test Crossmatch 03/02/17 03/02/17 03/02/17 00:10 03:05 05:20 WBC RBC Hgb Hct MCV MCH MCHC RDW Plt Count Lymph % (Auto) [place] % (Auto) Lymph # [place] # Baso # Seg Neutrophils % Seg Neuts % (Manual) Lymphocytes % (Manual) Monocytes % (Manual) Eosinophils % (Manual) Basophils % (Manual) Nucleated RBC % Seg Neutrophils # Seg Neutrophils # Man Lymphocytes # (Manual) Monocytes # (Manual) Eosinophils # (Manual) Basophils # (Manual) PT INR Fibrinogen dRVVT Confirm Interp Factor V Activity POC ABG pH POC ABG pCO2 POC ABG pO2 ABG pO2 ABG HCO3 ABG Base Excess ABG Hemoglobin Oxyhemoglobin Sodium Potassium 3.0 L Chloride Carbon Dioxide BUN 41 H Creatinine 1.6 H Glucose 130 H POC Glucose 129 H 173 H Lactic Acid Calcium Ionized Calcium Phosphorus 1.70 L D Magnesium 1.40 L Direct Bilirubin AST ALT Alkaline Phosphatase Lactate Dehydrogenase Troponin T C-Reactive Protein Total Protein Albumin Prealbumin Triglycerides Cholesterol LDL Cholesterol Direct HDL Cholesterol 25-OH Vitamin D Total PTH Intact Urine pH Urine WBC (Auto) Urine Creatinine Urine Total Protein Fluid Total Protein Vancomycin Trough Rheumatoid Factor Complement C4 Miscellaneous Test Crossmatch 03/02/17 03/02/17 03/02/17 11:49 16:38 23:46 WBC RBC Hgb Hct MCV MCH MCHC RDW Plt Count Lymph % (Auto) [place] % (Auto) Lymph # [place] # Baso # Seg Neutrophils % Seg Neuts % (Manual) Lymphocytes % (Manual) Monocytes % (Manual) Eosinophils % (Manual) Basophils % (Manual) Nucleated RBC % Seg Neutrophils # Seg Neutrophils # Man Lymphocytes # (Manual) Monocytes # (Manual) Eosinophils # (Manual) Basophils # (Manual) PT INR Fibrinogen dRVVT Confirm Interp Factor V Activity POC ABG pH POC ABG pCO2 POC ABG pO2 ABG pO2 ABG HCO3 ABG Base Excess ABG Hemoglobin Oxyhemoglobin Sodium Potassium Chloride Carbon Dioxide BUN Creatinine Glucose POC Glucose 129 H 141 H 119 H Lactic Acid Calcium Ionized Calcium Phosphorus Magnesium Direct Bilirubin AST ALT Alkaline Phosphatase Lactate Dehydrogenase Troponin T C-Reactive Protein Total Protein Albumin Prealbumin Triglycerides Cholesterol LDL Cholesterol Direct HDL Cholesterol 25-OH Vitamin D Total PTH Intact Urine pH Urine WBC (Auto) Urine Creatinine Urine Total Protein Fluid Total Protein Vancomycin Trough Rheumatoid Factor Complement C4 Miscellaneous Test Crossmatch 03/03/17 03/03/17 03/03/17 04:00 11:59 18:08 WBC RBC Hgb Hct MCV MCH MCHC RDW Plt Count Lymph % (Auto) [place] % (Auto) Lymph # [place] # Baso # Seg Neutrophils % Seg Neuts % (Manual) Lymphocytes % (Manual) Monocytes % (Manual) Eosinophils % (Manual) Basophils % (Manual) Nucleated RBC % Seg Neutrophils # Seg Neutrophils # Man Lymphocytes # (Manual) Monocytes # (Manual) Eosinophils # (Manual) Basophils # (Manual) PT INR Fibrinogen dRVVT Confirm Interp Factor V Activity POC ABG pH POC ABG pCO2 POC ABG pO2 ABG pO2 ABG HCO3 ABG Base Excess ABG Hemoglobin Oxyhemoglobin Sodium Potassium Chloride Carbon Dioxide BUN 70 H Creatinine 2.3 H Glucose POC Glucose 125 H 131 H Lactic Acid Calcium Ionized Calcium Phosphorus Magnesium Direct Bilirubin AST ALT Alkaline Phosphatase Lactate Dehydrogenase Troponin T C-Reactive Protein Total Protein Albumin Prealbumin Triglycerides Cholesterol LDL Cholesterol Direct HDL Cholesterol 25-OH Vitamin D Total PTH Intact Urine pH Urine WBC (Auto) Urine Creatinine Urine Total Protein Fluid Total Protein Vancomycin Trough Rheumatoid Factor Complement C4 Miscellaneous Test Crossmatch 03/03/17 03/03/17 03/04/17 20:17 23:43 05:21 WBC RBC Hgb Hct MCV MCH MCHC RDW Plt Count Lymph % (Auto) [place] % (Auto) Lymph # [place] # Baso # Seg Neutrophils % Seg Neuts % (Manual) Lymphocytes % (Manual) Monocytes % (Manual) Eosinophils % (Manual) Basophils % (Manual) Nucleated RBC % Seg Neutrophils # Seg Neutrophils # Man Lymphocytes # (Manual) Monocytes # (Manual) Eosinophils # (Manual) Basophils # (Manual) PT INR Fibrinogen dRVVT Confirm Interp Factor V Activity POC ABG pH 7.518 H POC ABG pCO2 28.8 L POC ABG pO2 61 L ABG pO2 ABG HCO3 ABG Base Excess ABG Hemoglobin Oxyhemoglobin Sodium Potassium Chloride Carbon Dioxide BUN Creatinine Glucose POC Glucose 122 H 130 H Lactic Acid Calcium Ionized Calcium Phosphorus Magnesium Direct Bilirubin AST ALT Alkaline Phosphatase Lactate Dehydrogenase Troponin T C-Reactive Protein Total Protein Albumin Prealbumin Triglycerides Cholesterol LDL Cholesterol Direct HDL Cholesterol 25-OH Vitamin D Total PTH Intact Urine pH Urine WBC (Auto) Urine Creatinine Urine Total Protein Fluid Total Protein Vancomycin Trough Rheumatoid Factor Complement C4 Miscellaneous Test Crossmatch 03/04/17 03/05/17 03/06/17 06:10 06:15 03:52 WBC RBC Hgb Hct MCV MCH MCHC RDW Plt Count Lymph % (Auto) [place] % (Auto) Lymph # [place] # Baso # Seg Neutrophils % Seg Neuts % (Manual) Lymphocytes % (Manual) Monocytes % (Manual) Eosinophils % (Manual) Basophils % (Manual) Nucleated RBC % Seg Neutrophils # Seg Neutrophils # Man Lymphocytes # (Manual) Monocytes # (Manual) Eosinophils # (Manual) Basophils # (Manual) PT INR Fibrinogen dRVVT Confirm Interp Factor V Activity POC ABG pH POC ABG pCO2 POC ABG pO2 ABG pO2 ABG HCO3 ABG Base Excess ABG Hemoglobin Oxyhemoglobin Sodium 135 L 136 L Potassium 5.2 H 5.9 H Chloride 95.8 L 97.7 L 96.0 L Carbon Dioxide 21 L 21 L BUN 40 H 56 H 70 H Creatinine 1.7 H 2.4 H 3.0 H Glucose 118 H POC Glucose Lactic Acid Calcium Ionized Calcium Phosphorus 4.80 H D 6.00 H D Magnesium 2.60 H Direct Bilirubin AST ALT Alkaline Phosphatase 165 H Lactate Dehydrogenase Troponin T C-Reactive Protein Total Protein Albumin 1.5 L Prealbumin Triglycerides Cholesterol LDL Cholesterol Direct HDL Cholesterol 25-OH Vitamin D Total PTH Intact Urine pH Urine WBC (Auto) Urine Creatinine Urine Total Protein Fluid Total Protein Vancomycin Trough Rheumatoid Factor Complement C4 Miscellaneous Test Crossmatch 03/06/17 03/06/17 03/06/17 11:19 18:40 23:39 WBC RBC Hgb Hct MCV MCH MCHC RDW Plt Count Lymph % (Auto) [place] % (Auto) Lymph # [place] # Baso # Seg Neutrophils % Seg Neuts % (Manual) Lymphocytes % (Manual) Monocytes % (Manual) Eosinophils % (Manual) Basophils % (Manual) Nucleated RBC % Seg Neutrophils # Seg Neutrophils # Man Lymphocytes # (Manual) Monocytes # (Manual) Eosinophils # (Manual) Basophils # (Manual) PT INR Fibrinogen dRVVT Confirm Interp Factor V Activity POC ABG pH POC ABG pCO2 POC ABG pO2 ABG pO2 ABG HCO3 ABG Base Excess ABG Hemoglobin Oxyhemoglobin Sodium Potassium Chloride Carbon Dioxide BUN Creatinine Glucose POC Glucose 108 H 110 H 156 H Lactic Acid Calcium Ionized Calcium Phosphorus Magnesium Direct Bilirubin AST ALT Alkaline Phosphatase Lactate Dehydrogenase Troponin T C-Reactive Protein Total Protein Albumin Prealbumin Triglycerides Cholesterol LDL Cholesterol Direct HDL Cholesterol 25-OH Vitamin D Total PTH Intact Urine pH Urine WBC (Auto) Urine Creatinine Urine Total Protein Fluid Total Protein Vancomycin Trough Rheumatoid Factor Complement C4 Miscellaneous Test Crossmatch 03/07/17 03/07/17 03/07/17 06:04 11:56 23:31 WBC RBC Hgb Hct MCV MCH MCHC RDW Plt Count Lymph % (Auto) [place] % (Auto) Lymph # [place] # Baso # Seg Neutrophils % Seg Neuts % (Manual) Lymphocytes % (Manual) Monocytes % (Manual) Eosinophils % (Manual) Basophils % (Manual) Nucleated RBC % Seg Neutrophils # Seg Neutrophils # Man Lymphocytes # (Manual) Monocytes # (Manual) Eosinophils # (Manual) Basophils # (Manual) PT INR Fibrinogen dRVVT Confirm Interp Factor V Activity POC ABG pH POC ABG pCO2 POC ABG pO2 ABG pO2 ABG HCO3 ABG Base Excess ABG Hemoglobin Oxyhemoglobin Sodium Potassium Chloride 97.5 L Carbon Dioxide BUN 28 H Creatinine 1.5 H Glucose POC Glucose 106 H 131 H Lactic Acid Calcium 7.9 L Ionized Calcium Phosphorus Magnesium Direct Bilirubin AST ALT Alkaline Phosphatase Lactate Dehydrogenase Troponin T C-Reactive Protein Total Protein Albumin Prealbumin Triglycerides Cholesterol LDL Cholesterol Direct HDL Cholesterol 25-OH Vitamin D Total PTH Intact Urine pH Urine WBC (Auto) Urine Creatinine Urine Total Protein Fluid Total Protein Vancomycin Trough Rheumatoid Factor Complement C4 Miscellaneous Test Crossmatch 03/08/17 03/08/17 03/08/17 05:15 05:38 11:50 WBC RBC Hgb Hct MCV MCH MCHC RDW Plt Count Lymph % (Auto) [place] % (Auto) Lymph # [place] # Baso # Seg Neutrophils % Seg Neuts % (Manual) Lymphocytes % (Manual) Monocytes % (Manual) Eosinophils % (Manual) Basophils % (Manual) Nucleated RBC % Seg Neutrophils # Seg Neutrophils # Man Lymphocytes # (Manual) Monocytes # (Manual) Eosinophils # (Manual) Basophils # (Manual) PT INR Fibrinogen dRVVT Confirm Interp Factor V Activity POC ABG pH POC ABG pCO2 POC ABG pO2 ABG pO2 ABG HCO3 ABG Base Excess ABG Hemoglobin Oxyhemoglobin Sodium 135 L Potassium Chloride 96.6 L Carbon Dioxide 20 L BUN 46 H Creatinine 2.3 H D Glucose 117 H POC Glucose 156 H 131 H Lactic Acid Calcium Ionized Calcium Phosphorus Magnesium Direct Bilirubin AST ALT Alkaline Phosphatase Lactate Dehydrogenase Troponin T C-Reactive Protein Total Protein Albumin Prealbumin Triglycerides Cholesterol LDL Cholesterol Direct HDL Cholesterol 25-OH Vitamin D Total PTH Intact Urine pH Urine WBC (Auto) Urine Creatinine Urine Total Protein Fluid Total Protein Vancomycin Trough Rheumatoid Factor Complement C4 Miscellaneous Test Crossmatch 03/08/17 03/09/17 03/09/17 23:34 04:42 05:20 WBC RBC Hgb Hct MCV MCH MCHC RDW Plt Count Lymph % (Auto) [place] % (Auto) Lymph # [place] # Baso # Seg Neutrophils % Seg Neuts % (Manual) Lymphocytes % (Manual) Monocytes % (Manual) Eosinophils % (Manual) Basophils % (Manual) Nucleated RBC % Seg Neutrophils # Seg Neutrophils # Man Lymphocytes # (Manual) Monocytes # (Manual) Eosinophils # (Manual) Basophils # (Manual) PT INR Fibrinogen dRVVT Confirm Interp Factor V Activity POC ABG pH POC ABG pCO2 POC ABG pO2 ABG pO2 ABG HCO3 ABG Base Excess ABG Hemoglobin Oxyhemoglobin Sodium Potassium 3.2 L Chloride Carbon Dioxide BUN 30 H Creatinine 1.7 H Glucose 112 H POC Glucose 125 H 128 H Lactic Acid Calcium 8.2 L Ionized Calcium Phosphorus 1.80 L D Magnesium 1.40 L Direct Bilirubin AST ALT Alkaline Phosphatase Lactate Dehydrogenase Troponin T C-Reactive Protein Total Protein Albumin Prealbumin Triglycerides Cholesterol LDL Cholesterol Direct HDL Cholesterol 25-OH Vitamin D Total PTH Intact Urine pH Urine WBC (Auto) Urine Creatinine Urine Total Protein Fluid Total Protein Vancomycin Trough Rheumatoid Factor Complement C4 Miscellaneous Test Crossmatch 03/09/17 03/09/17 03/10/17 11:48 17:38 00:08 WBC RBC Hgb Hct MCV MCH MCHC RDW Plt Count Lymph % (Auto) [place] % (Auto) Lymph # [place] # Baso # Seg Neutrophils % Seg Neuts % (Manual) Lymphocytes % (Manual) Monocytes % (Manual) Eosinophils % (Manual) Basophils % (Manual) Nucleated RBC % Seg Neutrophils # Seg Neutrophils # Man Lymphocytes # (Manual) Monocytes # (Manual) Eosinophils # (Manual) Basophils # (Manual) PT INR Fibrinogen dRVVT Confirm Interp Factor V Activity POC ABG pH POC ABG pCO2 POC ABG pO2 ABG pO2 ABG HCO3 ABG Base Excess ABG Hemoglobin Oxyhemoglobin Sodium Potassium Chloride Carbon Dioxide BUN Creatinine Glucose POC Glucose 146 H 140 H 137 H Lactic Acid Calcium Ionized Calcium Phosphorus Magnesium Direct Bilirubin AST ALT Alkaline Phosphatase Lactate Dehydrogenase Troponin T C-Reactive Protein Total Protein Albumin Prealbumin Triglycerides Cholesterol LDL Cholesterol Direct HDL Cholesterol 25-OH Vitamin D Total PTH Intact Urine pH Urine WBC (Auto) Urine Creatinine Urine Total Protein Fluid Total Protein Vancomycin Trough Rheumatoid Factor Complement C4 Miscellaneous Test Crossmatch 03/10/17 03/10/17 03/10/17 04:46 06:37 11:22 WBC RBC Hgb Hct MCV MCH MCHC RDW Plt Count Lymph % (Auto) [place] % (Auto) Lymph # [place] # Baso # Seg Neutrophils % Seg Neuts % (Manual) Lymphocytes % (Manual) Monocytes % (Manual) Eosinophils % (Manual) Basophils % (Manual) Nucleated RBC % Seg Neutrophils # Seg Neutrophils # Man Lymphocytes # (Manual) Monocytes # (Manual) Eosinophils # (Manual) Basophils # (Manual) PT INR Fibrinogen dRVVT Confirm Interp Factor V Activity POC ABG pH POC ABG pCO2 POC ABG pO2 ABG pO2 ABG HCO3 ABG Base Excess ABG Hemoglobin Oxyhemoglobin Sodium 135 L Potassium Chloride 96.3 L Carbon Dioxide 21 L BUN 46 H Creatinine 2.2 H Glucose 106 H POC Glucose 115 H 151 H Lactic Acid Calcium 8.2 L Ionized Calcium Phosphorus Magnesium Direct Bilirubin AST ALT Alkaline Phosphatase Lactate Dehydrogenase Troponin T C-Reactive Protein Total Protein Albumin Prealbumin Triglycerides Cholesterol LDL Cholesterol Direct HDL Cholesterol 25-OH Vitamin D Total PTH Intact Urine pH Urine WBC (Auto) Urine Creatinine Urine Total Protein Fluid Total Protein Vancomycin Trough Rheumatoid Factor Complement C4 Miscellaneous Test Crossmatch Allied health notes reviewed: nursing
--- NOTE | 2017-03-10 12:07 | Progress Note ---
Assessment and Plan Assessment * End-stage renal disease on maintenance hemodialysis * Patient had acute kidney injury secondary to ATN. No evidence of renal recovery. 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 * Continue PRN albumin for blood pressure support * Packed RBC transfusion as needed per primary team * Patient's serum creatinine is noted to be low. However she is oliguric and remains volume overloaded. Needs to be maintained on dialysis at this time. . * Avoid nephrotoxins * Adjust meds for GFR less than 10 * No evidence of renal recovery at this time * Patient currently has left femoral Vas-Cath in place Subjective Date of service: 03/10/17 Principal diagnosis: Acute resp failure on MVS; S/P Acute CVA; Acute Encephalopathy; JUANITA Interval history: Patient is currently undergoing hemodialysis. She is currently on a Levophed drip as well as amiodarone drip. She is on the ventilator. Opens her eyes but does not respond to any commands Objective - Vital Signs Vital signs: Vital Signs - 12hr 03/10/17 03/10/17 03/10/17 00:15 00:30 00:45 Temperature Pulse Rate 105 H 109 H 111 H Pulse Rate [ Throughout] Respiratory 14 18 21 Rate Respiratory Rate [ Throughout] Blood Pressure 96/49 95/53 98/50 O2 Sat by Pulse 99 100 100 Oximetry O2 Sat by Pulse Oximetry [ Assessment] O2 Sat by Pulse Oximetry [ Throughout] 03/10/17 03/10/17 03/10/17 01:00 01:15 01:30 Temperature Pulse Rate 116 H 109 H 109 H Pulse Rate [ Throughout] Respiratory 19 18 22 Rate Respiratory Rate [ Throughout] Blood Pressure 104/45 96/51 87/53 O2 Sat by Pulse 97 98 100 Oximetry O2 Sat by Pulse Oximetry [ Assessment] O2 Sat by Pulse Oximetry [ Throughout] 03/10/17 03/10/17 03/10/17 01:45 02:00 02:15 Temperature Pulse Rate 105 H 107 H 98 H Pulse Rate [ Throughout] Respiratory 22 21 15 Rate Respiratory Rate [ Throughout] Blood Pressure 92/53 102/55 102/55 O2 Sat by Pulse 99 100 100 Oximetry O2 Sat by Pulse Oximetry [ Assessment] O2 Sat by Pulse Oximetry [ Throughout] 03/10/17 03/10/17 03/10/17 02:31 02:45 03:00 Temperature Pulse Rate 112 H 100 H 108 H Pulse Rate [ Throughout] Respiratory 24 15 26 H Rate Respiratory Rate [ Throughout] Blood Pressure 111/53 111/53 100/61 O2 Sat by Pulse 99 100 99 Oximetry O2 Sat by Pulse Oximetry [ Assessment] O2 Sat by Pulse Oximetry [ Throughout] 03/10/17 03/10/17 03/10/17 03:15 03:30 03:45 Temperature Pulse Rate 103 H 107 H 103 H Pulse Rate [ Throughout] Respiratory 16 24 22 Rate Respiratory Rate [ Throughout] Blood Pressure 100/61 111/54 111/54 O2 Sat by Pulse 100 97 100 Oximetry O2 Sat by Pulse Oximetry [ Assessment] O2 Sat by Pulse Oximetry [ Throughout] 03/10/17 03/10/17 03/10/17 04:00 04:15 04:30 Temperature 98.5 F Pulse Rate 118 H 102 H 108 H Pulse Rate [ Throughout] Respiratory 17 26 H 20 Rate Respiratory Rate [ Throughout] Blood Pressure 105/52 104/51 104/52 O2 Sat by Pulse 99 99 96 Oximetry O2 Sat by Pulse Oximetry [ Assessment] O2 Sat by Pulse Oximetry [ Throughout] 03/10/17 03/10/17 03/10/17 04:45 05:00 05:15 Temperature Pulse Rate 106 H 105 H 109 H Pulse Rate [ Throughout] Respiratory 16 17 24 Rate Respiratory Rate [ Throughout] Blood Pressure 104/52 102/48 102/48 O2 Sat by Pulse 99 94 98 Oximetry O2 Sat by Pulse Oximetry [ Assessment] O2 Sat by Pulse Oximetry [ Throughout] 03/10/17 03/10/17 03/10/17 05:30 05:45 06:00 Temperature Pulse Rate 105 H 109 H Pulse Rate [ Throughout] Respiratory 19 20 Rate Respiratory Rate [ Throughout] Blood Pressure 101/50 101/50 101/50 O2 Sat by Pulse 95 100 100 Oximetry O2 Sat by Pulse Oximetry [ Assessment] O2 Sat by Pulse Oximetry [ Throughout] 03/10/17 03/10/17 03/10/17 06:16 06:41 07:00 Temperature 99.2 F Pulse Rate 112 H 102 H Pulse Rate [ Throughout] Respiratory 21 21 Rate Respiratory Rate [ Throughout] Blood Pressure 112/67 112/58 O2 Sat by Pulse 95 98 Oximetry O2 Sat by Pulse Oximetry [ Assessment] O2 Sat by Pulse Oximetry [ Throughout] 03/10/17 03/10/17 03/10/17 07:16 07:30 07:32 Temperature Pulse Rate 100 H 106 H 102 H Pulse Rate [ Throughout] Respiratory 21 24 Rate Respiratory Rate [ Throughout] Blood Pressure 115/58 119/61 119/61 O2 Sat by Pulse 97 95 98 Oximetry O2 Sat by Pulse Oximetry [ Assessment] O2 Sat by Pulse Oximetry [ Throughout] 03/10/17 03/10/17 03/10/17 07:33 07:37 07:46 Temperature 98.5 F Pulse Rate 102 H Pulse Rate [ 102 H Throughout] Respiratory 25 H Rate Respiratory 20 Rate [ Throughout] Blood Pressure 101/61 O2 Sat by Pulse Oximetry O2 Sat by Pulse 98 Oximetry [ Assessment] O2 Sat by Pulse Oximetry [ Throughout] 03/10/17 03/10/17 03/10/17 07:53 08:00 08:12 Temperature 98.5 F Pulse Rate 103 H Pulse Rate [ 103 H Throughout] Respiratory 20 Rate Respiratory 20 Rate [ Throughout] Blood Pressure 102/52 O2 Sat by Pulse 97 Oximetry O2 Sat by Pulse Oximetry [ Assessment] O2 Sat by Pulse Oximetry [ Throughout] 03/10/17 03/10/17 03/10/17 08:15 08:30 08:46 Temperature Pulse Rate 102 H 100 H 102 H Pulse Rate [ Throughout] Respiratory 20 21 31 H Rate Respiratory Rate [ Throughout] Blood Pressure 101/55 104/54 95/56 O2 Sat by Pulse 98 96 90 Oximetry O2 Sat by Pulse Oximetry [ Assessment] O2 Sat by Pulse Oximetry [ Throughout] 03/10/17 03/10/17 03/10/17 09:00 09:15 09:30 Temperature Pulse Rate 99 H 98 H 103 H Pulse Rate [ Throughout] Respiratory 20 16 27 H Rate Respiratory Rate [ Throughout] Blood Pressure 95/58 101/52 102/54 O2 Sat by Pulse 94 99 95 Oximetry O2 Sat by Pulse Oximetry [ Assessment] O2 Sat by Pulse Oximetry [ Throughout] 03/10/17 03/10/17 03/10/17 09:45 10:00 10:20 Temperature 99.6 F Pulse Rate 103 H 101 H 105 H Pulse Rate [ Throughout] Respiratory 20 20 20 Rate Respiratory Rate [ Throughout] Blood Pressure 103/57 108/56 102/54 O2 Sat by Pulse 94 98 Oximetry O2 Sat by Pulse Oximetry [ Assessment] O2 Sat by Pulse 100 Oximetry [ Throughout] 03/10/17 03/10/17 03/10/17 10:30 10:45 11:00 Temperature Pulse Rate 101 H 105 H 105 H Pulse Rate [ Throughout] Respiratory Rate Respiratory Rate [ Throughout] Blood Pressure 97/48 91/49 91/55 O2 Sat by Pulse Oximetry O2 Sat by Pulse Oximetry [ Assessment] O2 Sat by Pulse Oximetry [ Throughout] 03/10/17 03/10/17 03/10/17 11:10 11:15 11:30 Temperature Pulse Rate 100 H 111 H 111 H Pulse Rate [ Throughout] Respiratory Rate Respiratory Rate [ Throughout] Blood Pressure 91/58 95/56 O2 Sat by Pulse 96 Oximetry O2 Sat by Pulse Oximetry [ Assessment] O2 Sat by Pulse Oximetry [ Throughout] 03/10/17 03/10/17 11:47 12:00 Temperature 98.1 F Pulse Rate 117 H Pulse Rate [ Throughout] Respiratory Rate Respiratory Rate [ Throughout] Blood Pressure 91/57 O2 Sat by Pulse Oximetry O2 Sat by Pulse Oximetry [ Assessment] O2 Sat by Pulse Oximetry [ Throughout] - General Appearance General appearance: chronically ill, intubated, frail EENT: ATNC, PERRL Neck: other (tracheostomy tube in place. Connected to the ventilator) Respiratory: Present: Ronchi (bilateral scattered rhonchi) Cardiology: regular, normal heart rate Gastrointestinal: normal, normoactive bowel sounds Integumentary: other (1+ edema. Left femoral Vas-Cath in place) - Lab 02/24/17 10:05 03/10/17 04:46 Most recent lab results ABG pH 7.450 pH Units (7.350-7.450) 12/05/16 Unknown ABG pCO2 29.6 mm Hg 12/05/16 Unknown ABG pO2 75.2 mm Hg (80.0-90.0) L 12/05/16 Unknown ABG HCO3 20.1 mmol/L (20.0-26.0) 12/05/16 Unknown ABG O2 Saturation 96.8 % (95.0-99.0) 12/05/16 Unknown Calcium 8.2 mg/dL (8.4-10.2) L 03/10/17 04:46 Phosphorus 3.10 mg/dL (2.5-4.5) D 03/10/17 04:46 Magnesium 1.90 mg/dL (1.7-2.3) 03/10/17 04:46 Urine Creatinine 19.7 mg/dL (0.1-20.0) 11/12/16 10:18 Urine Sodium 36 mEq/L 09/16/16 19:19 Urine Total Protein 16 mg/dL (5-11.8) H 09/16/16 19:19
--- NOTE | 2017-03-10 12:39 | Progress Note ---
Assessment and Plan Assessment and plan: Patient is 46-year-old woman with a history of hypertension, diabetes, asthma, hyperlipidemia, chronic kidney disease and anxiety , who was brought in by family because, she couldn't get her words out, her face was also twisted, she was admitted for acute CVA and accelerated hypertension, she had a hx of poor adherence with her medications, and uncontrolled htn. Patient's SBP on admission was noted be greater than 260. TPA was started but this was discontinued after 5 minutes because her blood pressure became uncontrolled. The TPA was not initiated again because the patient was outside the TPA window. --Acute respiratory failure status post tracheostomy vent dependent Continue current management pulmonary following --Status post cardiac arrest/anoxic encephalopathy/status post tracheostomy --Persistent agitated state/DO NOT RESUSCITATE status, family not ready for hospice --Enterococcal septicemia; continue current management ID following, PRINCE negative for vegetations --Peritonitis ; due to gastric perforation, status post exploratory laparotomy, but gastrostomy, abdominal washout and drain placement Continue current management --End-stage renal disease on hemodialysis --Large CVA; continue current management --Aspiration pneumonia; completed multiple courses of antibiotics, ID following --Atrial fibrillation, intermittent episodes of rapid ventricular rate, continue amiodarone --Severe protein calorie malnutrition; nutrition consult and supportive care --Multiple sacral and lower extremity decubitus ulcers; status post debridement , continue wound care --DO NOT RESUSCITATE status Poor prognosis Many consultations the recommendations noted appreciated Plan of care discussed with the patient's nurse Critical care time 32 minutes - The high probability of a clinically significant, sudden or life threatening deterioration of the [neurologic, CV] system(s) required my full and direct attention, intervention and personal management. The aggregate critical care time was [32] minutes. This time is in addition to time spent performing reported procedures but includes the following: [x] Data Review and interpretation [x] Patient assessment and monitoring of vital signs [x] Documentation [x] Medication orders and management History Interval history: Patient seen and examined medical records reviewed Clinically no change Status post tracheostomy on vent No new events reported by the nursing staff Hospitalist Physical - Constitutional Vitals: Temp Pulse Resp BP Pulse Ox 98.1 F 115 H 24 93/22 98 03/10/17 12:00 03/10/17 12:18 03/10/17 12:16 03/10/17 12:18 03/10/17 12:16 General appearance: Present: no acute distress, cachectic, other (unresponsive) - EENT Eyes: Present: PERRL, EOM intact - Neck Neck: Present: supple, normal ROM - Cardiovascular Rhythm: regular Heart Sounds: Present: S1 & S2 - Extremities Extremities: no ischemia Extremity abnormal: edema - Abdominal General gastrointestinal: soft, non-tender, non-distended, normal bowel sounds - Integumentary Integumentary: Present: clear, warm - Psychiatric Psychiatric: other (noncommunicative) - Neurologic Neurologic: CNII-XII intact (noncommunicative) Results - Labs CBC & Chem 7: 02/24/17 10:05 03/10/17 04:46 Labs: Laboratory Last Values WBC 10.2 K/mm3 (4.5-11.0) 02/24/17 10:05 RBC 2.95 M/mm3 (3.65-5.03) L 02/24/17 10:05 Hgb 8.4 gm/dl (10.1-14.3) L 02/24/17 10:05 Hct 25.7 % (30.3-42.9) L 02/24/17 10:05 MCV 87 fl (79-97) 02/24/17 10:05 MCH 28 pg (28-32) 02/24/17 10:05 MCHC 33 % (30-34) 02/24/17 10:05 RDW 20.8 % (13.2-15.2) H 02/24/17 10:05 Plt Count 333 K/mm3 (140-440) 02/24/17 10:05 Lymph % (Auto) 19.8 % (13.4-35.0) 02/24/17 10:05 [place] % (Auto) 7.2 % (0.0-7.3) 02/24/17 10:05 Eos % (Auto) 0.7 % (0.0-4.3) 02/24/17 10:05 Baso % (Auto) 0.5 % (0.0-1.8) 02/24/17 10:05 Lymph # 2.0 K/mm3 (1.2-5.4) 02/24/17 10:05 [place] # 0.7 K/mm3 (0.0-0.8) 02/24/17 10:05 Eos # 0.1 K/mm3 (0.0-0.4) 02/24/17 10:05 Baso # 0.0 K/mm3 (0.0-0.1) 02/24/17 10:05 Add Manual Diff Complete 12/19/16 05:02 Total Counted 100 12/19/16 05:02 Seg Neutrophils % 71.8 % (40.0-70.0) H 02/24/17 10:05 Seg Neuts % (Manual) 64.0 % (40.0-70.0) 12/19/16 05:02 Band Neutrophils % 15.0 % 12/19/16 05:02 Lymphocytes % (Manual) 13.0 % (13.4-35.0) L 12/19/16 05:02 Reactive Lymphs % (Man) 0 % 12/19/16 05:02 Monocytes % (Manual) 7.0 % (0.0-7.3) 12/19/16 05:02 Eosinophils % (Manual) 0 % (0.0-4.3) 12/19/16 05:02 Basophils % (Manual) 1.0 % (0.0-1.8) 12/19/16 05:02 Metamyelocytes % 0 % 12/19/16 05:02 Myelocytes % 0 % 12/19/16 05:02 Promyelocytes % 0 % 12/19/16 05:02 Blast Cells % 0 % 12/19/16 05:02 Nucleated RBC % 1.0 % (0.0-0.9) H 12/19/16 05:02 Seg Neutrophils # 7.3 K/mm3 (1.8-7.7) 02/24/17 10:05 Seg Neutrophils # Man 12.9 K/mm3 (1.8-7.7) H 12/19/16 05:02 Band Neutrophils # 3.0 K/mm3 12/19/16 05:02 Lymphocytes # (Manual) 2.6 K/mm3 (1.2-5.4) 12/19/16 05:02 Abs React Lymphs (Man) 0.0 K/mm3 12/19/16 05:02 Monocytes # (Manual) 1.4 K/mm3 (0.0-0.8) H 12/19/16 05:02 Eosinophils # (Manual) 0.0 K/mm3 (0.0-0.4) 12/19/16 05:02 Basophils # (Manual) 0.2 K/mm3 (0.0-0.1) H 12/19/16 05:02 Metamyelocytes # 0.0 K/mm3 12/19/16 05:02 Myelocytes # 0.0 K/mm3 12/19/16 05:02 Promyelocytes # 0.0 K/mm3 12/19/16 05:02 Blast Cells # 0.0 K/mm3 12/19/16 05:02 Pathologist Review 09/13/16 04:00 WBC Morphology Not Reportable 12/19/16 05:02 Hypersegmented Neuts Not Reportable 12/19/16 05:02 Hyposegmented Neuts Not Reportable 12/19/16 05:02 Hypogranular Neuts Not Reportable 12/19/16 05:02 Smudge Cells Not Reportable 12/19/16 05:02 Toxic Granulation Not Reportable 12/19/16 05:02 Toxic Vacuolation Not Reportable 12/19/16 05:02 Dohle Bodies Not Reportable 12/19/16 05:02 Pelger-Huet Anomaly Not Reportable 12/19/16 05:02 Jasmina Rods Not Reportable 12/19/16 05:02 Platelet Estimate Consistent w auto 12/19/16 05:02 Clumped Platelets Not Reportable 12/19/16 05:02 Plt Clumps, EDTA Not Reportable 12/19/16 05:02 Large Platelets Not Reportable 12/19/16 05:02 Giant Platelets Not Reportable 12/19/16 05:02 Platelet Satelliting Not Reportable 12/19/16 05:02 Plt Morphology Comment Not Reportable 12/19/16 05:02 RBC Morphology Not Reportable 12/19/16 05:02 Dimorphic RBCs Not Reportable 12/19/16 05:02 Polychromasia Not Reportable 12/19/16 05:02 Hypochromasia Not Reportable 12/19/16 05:02 Poikilocytosis Not Reportable 12/19/16 05:02 Anisocytosis Not Reportable 12/19/16 05:02 Microcytosis Not Reportable 12/19/16 05:02 Macrocytosis Not Reportable 12/19/16 05:02 Spherocytes Not Reportable 12/19/16 05:02 Pappenheimer Bodies Not Reportable 12/19/16 05:02 Sickle Cells Not Reportable 12/19/16 05:02 Target Cells Few 12/19/16 05:02 Tear Drop Cells Not Reportable 12/19/16 05:02 Ovalocytes Not Reportable 12/19/16 05:02 Stomatocytes Rare 12/03/16 04:00 Helmet Cells Not Reportable 12/19/16 05:02 [place] Bodies Not Reportable 12/19/16 05:02 [place] Rings Not Reportable 12/19/16 05:02 [place] Cells Not Reportable 12/19/16 05:02 Bite Cells Not Reportable 12/19/16 05:02 Crenated Cell Not Reportable 12/19/16 05:02 Elliptocytes Not Reportable 12/19/16 05:02 Acanthocytes (Spur) Not Reportable 12/19/16 05:02 Rouleaux Not Reportable 12/19/16 05:02 Hemoglobin C Crystals Not Reportable 12/19/16 05:02 Schistocytes Not Reportable 12/19/16 05:02 Malaria parasites Not Reportable 12/19/16 05:02 ESR > 140.0 mm/Hr (0-20) 09/08/16 11:48 Jun Bodies Not Reportable 12/19/16 05:02 Hem Pathologist Commnt No 12/19/16 05:02 PT 15.4 Sec. (12.2-14.9) H 01/13/17 15:50 INR 1.16 (0.87-1.13) H 01/13/17 15:50 APTT 33.0 Sec. (24.2-36.6) 10/09/16 03:45 Thrombin Time 16.8 Sec. (15.1-19.6) 09/03/16 00:10 Fibrinogen 750 mg/dl (211-480) H 09/08/16 11:48 Lupus Anticoagulant see below 09/12/16 09:59 LA PTT Baseline See scanned report 09/12/16 09:59 dRVVT Confirm Interp Positive (Negative) H 09/12/16 09:59 dRVVT Screen 50:50 See scanned report 09/12/16 09:59 dRVVT Mix Interpret See scanned report 09/12/16 09:59 Protein C Antigen 122 % (70-140) 09/08/16 15:35 Free Protein S 97 % normal (50-147) 09/08/16 15:35 Total Protein S 109 % (70-140) 09/08/16 15:35 Antithrombin III Ag 100 % (80-120) 09/08/16 15:35 Heparin Anti-Xa, Unfract Negative (Negative) 09/29/16 13:35 Factor V Activity 182 % (65-150) H 09/08/16 15:35 POC ABG pH 7.518 (7.35-7.45) H 03/03/17 20:17 ABG pH 7.450 pH Units (7.350-7.450) 12/05/16 Unknown POC ABG pCO2 28.8 (35-45) L 03/03/17 20: ABG pCO2 29.6 mm Hg 12/05/16 Unknown POC ABG pO2 61 (80-105) L 03/03/17 20: ABG pO2 75.2 mm Hg (80.0-90.0) L 12/05/16 Unknown POC ABG HCO3 23.4 03/03/17 20:17 ABG HCO3 20.1 mmol/L (20.0-26.0) 12/05/16 Unknown POC ABG Total CO2 24 03/03/17 20:17 POC ABG O2 Sat 94 03/03/17 20: ABG O2 Saturation 96.8 % (95.0-99.0) 12/05/16 Unknown ABG O2 Content 9.9 (0.0-44) 12/05/16 Unknown POC ABG Base Excess 0 03/03/17 20: ABG Base Excess -3.4 mmol/L (-2.0-3.0) L 12/05/16 Unknown ABG Hemoglobin 7.4 gm/dl (12.0-16.0) L 12/05/16 Unknown ABG Carboxyhemoglobin 1.8 % (0.0-5.0) 12/05/16 Unknown ABG Methemoglobin 0.6 % (0.0-1.5) 12/05/16 Unknown Oxyhemoglobin 94.5 % (95.0-99.0) L 12/05/16 Unknown FiO2 40 % 03/03/17 20:17 Sodium 135 mmol/L (137-145) L 03/10/17 04:46 Potassium 3.6 mmol/L (3.6-5.0) 03/10/17 04:46 Chloride 96.3 mmol/L (98-107) L 03/10/17 04:46 Carbon Dioxide 21 mmol/L (22-30) L 03/10/17 04:46 Anion Gap 21 mmol/L 03/10/17 04:46 BUN 46 mg/dL (7-17) H 03/10/17 04:46 Creatinine 2.2 mg/dL (0.7-1.2) H 03/10/17 04:46 Estimated GFR 29 ml/min 03/10/17 04:46 BUN/Creatinine Ratio 21 % 03/10/17 04:46 Glucose 106 mg/dL (65-100) H 03/10/17 04:46 POC Glucose 151 (70-105) H 03/10/17 11:22 Osmolality 351 Mosm/kg 09/16/16 11:47 Lactic Acid 2.30 mmol/L (0.7-2.0) H* 01/09/17 08:22 Calcium 8.2 mg/dL (8.4-10.2) L 03/10/17 04:46 Ionized Calcium 6.0 mg/dL (4.8-5.6) H 02/15/17 19:08 Phosphorus 3.10 mg/dL (2.5-4.5) D 03/10/17 04:46 Magnesium 1.90 mg/dL (1.7-2.3) 03/10/17 04:46 Total Bilirubin 0.50 mg/dL (0.1-1.2) 03/06/17 03:52 Direct Bilirubin 0.2 mg/dL (0-0.2) 01/28/17 04:00 Indirect Bilirubin 0.3 mg/dL 01/28/17 04:00 AST 18 units/L (5-40) 03/06/17 03:52 ALT 18 units/L (7-56) 03/06/17 03:52 Alkaline Phosphatase 165 units/L (35-129) H 03/06/17 03:52 Ammonia 27.0 umol/L (25-60) 09/07/16 08:37 Lactate Dehydrogenase 170 units/L (91-180) 11/24/17 15:50 Total Creatine Kinase 121 units/L (30-135) 09/29/16 20:12 CK-MB (CK-2) < 1.0 ng/mL (0.0-4.0) 09/29/16 20:12 CK-MB (CK-2) Rel Index 0.8 (0-4) 09/29/16 20:12 Troponin T 0.204 ng/mL (0.00-0.029) H* 09/29/16 20:12 C-Reactive Protein 8.10 mg/dL (0.00-1.30) H 01/31/17 11:12 Total Protein 7.0 g/dL (6.3-8.2) 03/06/17 03:52 Albumin 1.5 g/dL (3.9-5) L 03/06/17 03:52 Albumin/Globulin Ratio 0.3 % 03/06/17 03:52 Prealbumin 0.110 g/L (0.200-0.400) L 12/29/16 05:15 Triglycerides 55 mg/dL (2-149) 02/06/17 04:45 Cholesterol 31 mg/dL (50-199) L 09/29/16 20:12 LDL Cholesterol Direct 4 mg/dL (50-130) L 09/29/16 20:12 HDL Cholesterol 3 mg/dL (40-59) L 09/29/16 20:12 Cholesterol/HDL Ratio 10.33 % 09/29/16 20:12 Angiotensin Convert Enz See scanned report 09/08/16 11:48 Renin 0.99 ng/mL/h (0.25-5.82) 10/07/16 10:56 Aldosterone <1 ng/dL () 10/07/16 10:56 Aldosterone/Renin Dir see below 10/07/16 10:56 Serotonin Release Assay See scanned report 09/29/16 13:35 25-OH Vitamin D Total 13 ng/mL (30-100) L 02/15/17 19:08 25-Hydroxy Vitamin D2 . 02/15/17 19:08 25-Hydroxy Vitamin D3 . 02/15/17 19:08 TSH 1.010 mlU/mL (0.270-4.200) 09/07/16 08:37 HCG, Qual Negative (Negative) 09/03/16 00:10 PTH Intact 10.88 pg/mL (15-65) L 02/15/17 19:08 Total Cortisol 18.2 mcg/dL () 02/02/17 20:09 Urine Color Yellow (Yellow) 11/05/16 13:09 Urine Turbidity Clear (Clear) 11/05/16 13:09 Urine pH 9.0 (5.0-7.0) H 11/05/16 13:09 Ur Specific [place] 1.011 (1.003-1.030) 11/05/16 13:09 Urine Protein 100 mg/dl mg/dL (Negative) 11/05/16 13:09 Urine Glucose (UA) Neg mg/dL (Negative) 11/05/16 13:09 Urine Ketones Neg mg/dL (Negative) 11/05/16 13:09 Urine Blood Neg (Negative) 11/05/16 13:09 Urine Nitrite Neg (Negative) 11/05/16 13:09 Urine Bilirubin Neg (Negative) 11/05/16 13:09 Urine Urobilinogen < 2.0 mg/dL (<2.0) 11/05/16 13:09 Ur Leukocyte Esterase Neg (Negative) 11/05/16 13:09 Urine WBC (Auto) 4.0 /HPF (0.0-6.0) 11/05/16 13:09 Urine RBC (Auto) 1.0 /HPF (0.0-6.0) 11/05/16 13:09 U Epithel Cells (Auto) 1.0 /HPF (0-13.0) 10/07/16 18:30 Urine Bacteria (Auto) 4+ /HPF (Negative) 11/05/16 13:09 Urine WBC Clumps 2+ /HPF 09/07/16 02:47 Hyaline Casts 4 /LPF 09/07/16 02:47 Urine Mucus Few /HPF 10/07/16 18:30 Urine Yeast (Budding) 3+ /HPF 10/07/16 18:30 Urine Eosinophils None seen (None Seen) 09/07/16 16:00 Urine Total Volume 950 11/12/16 10:18 Urine Creatinine 19.7 mg/dL (0.1-20.0) 11/12/16 10:18 Height (in) 65.0 inches 11/12/16 10:18 Weight (lb) 181.0 lbs 11/12/16 10:18 Creatinine Clearance 5 11/12/16 10:18 Urine Sodium 36 mEq/L 09/16/16 19:19 Urine Total Protein 16 mg/dL (5-11.8) H 09/16/16 19:19 Fluid Type Pleural 01/13/17 12:10 Fluid Color Yellow 01/13/17 12:10 Fluid Appearance Hazy 01/13/17 12:10 Fluid WBC 182 /mm3 01/13/17 12:10 Fluid RBC 41 /mm3 01/13/17 12:10 Fluid Seg Neutrophils 85.0 % 01/13/17 12:10 Fluid Lymphocytes 8.0 % 01/13/17 12:10 Fluid Reactive Lymphs 0 % 01/13/17 12:10 Fluid Monocytes 6.0 % 01/13/17 12:10 Fluid Eosinophils 1.0 % 01/13/17 12:10 Fluid Basophils 0 % 01/13/17 12:10 Fluid Total Protein 3.0 (15.0-45.0) L 01/13/17 12:10 Fluid LDH 1322 01/13/17 12:10 Fluid Comment Diff performed 01/13/17 12:10 Vancomycin Trough 2.3 ug/mL (5.0-20.0) L 09/21/16 13:00 Random Vancomycin 17.7 ug/mL (0-40.0) 03/06/17 03:52 Urine Opiates Screen Presumptive negative 09/03/16 15:11 Urine Methadone Screen Presumptive positive 09/03/16 15:11 Ur Barbiturates Screen Presumptive positive 09/03/16 15:11 Ur Phencyclidine Scrn Presumptive negative 09/03/16 15:11 Ur Amphetamines Screen Presumptive negative 09/03/16 15:11 U Benzodiazepines Scrn Presumptive negative 09/03/16 15:11 Urine Cocaine Screen Presumptive negative 09/03/16 15:11 U Marijuana (THC) Screen Presumptive positive 09/03/16 15:11 Drugs of Abuse Note Disclamer 09/03/16 15:11 Rheumatoid Factor 24 IU/ml (0-13) H 09/08/16 11:48 SAHIL Screen Negative (Negative) 09/07/16 09:20 Proteinase 3 (PR3) Ab <1.0 AI (<1.0) 09/07/16 09:20 Myeloperoxidase Ab <1.0 AI (<1.0) 09/07/16 09:20 Sjogren's Antibody <1.0 AI (<1.0) 09/08/16 15:35 Scl-70 Scleroderma Ab <1.0 AI (<1.0) 09/08/16 15:35 Centromere B Antibody <1.0 AI (<1.0) 09/08/16 12:02 Heparin-induced Plt Ab Negative (Negative) 09/29/16 13:35 UF Heparin High Dose 11 % Release 09/29/16 13:35 SUDHIR UFH Low Dose 0.1 6 % Release 09/29/16 13:35 SUDHIR UFH Low Dose 0.5 8 % Release 09/29/16 13:35 Cardiolipid IgG Ab <14 GPL (<=14) 09/12/16 09:59 Cardiolipid IgA Ab <11 APL (<=11) 09/12/16 09:59 Cardiolipid IgM Ab <12 MPL (<=12) 09/12/16 09:59 Complement C3 148 mg/dL (90-180) 09/07/16 09:20 Complement C4 58 mg/dL (16-47) H 09/07/16 09:20 RPR Nonreactive (Nonreactive) 09/08/16 11:48 Hepatitis A IgM Ab Non-reactive (NonReactive) 09/24/16 14:40 Hep Bs Antigen Non-reactive (Negative) 09/24/16 14:40 Hep B Core IgM Ab Non-reactive (NonReactive) 09/24/16 14:40 Hepatitis C Antibody Non-reactive (NonReactive) 09/24/16 14:40 HIV 1&2 Antibody Rapid Non react (Non React) 09/08/16 11:48 HIV P24 Antigen Non react (Non React) 09/08/16 11:48 Miscellaneous Test Flexitest 1 H 01/09/17 18:45 Blood Type A POSITIVE 02/12/17 10:25 Antibody Screen Negative 02/12/17 10:25 DELORIS Antibody Screen Negative 11/24/16 11:20 Crossmatch See Detail 02/12/17 10:25
--- NOTE | 2017-03-10 15:59 | XRay Report ---
PORTABLE CHEST INDICATION: Left arm PICC placement. COMPARISON: 03/06/2017 FINDINGS: Portable, frontal chest radiograph demonstrates new left upper extremity PICC tip along mid to distal SVC. Stable tracheostomy and nasogastric tubes. Normal cardiomediastinal silhouette. Improving right basilar haziness/layering pleural fluid. EKG leads. Stable bones. CONCLUSION: Interval uncomplicated left upper extremity PICC placement with improving right lower lobe haziness and stable remainder supporting devices, as described. Thank you for the opportunity to participate in this patient's care.
[2017-03-10] MEDS ORDERED: TPN ADULT IV SCH (20:00)
[2017-03-10] MEDS ORDERED: INTRALIPID 20% 250 ML IV SCH (20:00)
[2017-03-10] MEDS: HEPARIN IV PRN (20:51)
[2017-03-10] MEDS: VANCOMYCIN VIAL 1,000 MG in NACL 0.9% 100 ML IV SCH (21:33)
[2017-03-11] MEDS: HumuLIN R SUB-Q SCH ×3 (01:38→18:35)
[2017-03-11] MEDS: LOPRESSOR IV SCH ×4 (02:29→20:06)
[2017-03-11] MEDS: REGLAN IV SCH ×3 (07:21→21:51)
[2017-03-11] MEDS: FLAGYL 500 MG/100 ML 500 MG/100 ML BAG IV SCH ×3 (07:21→21:52)
[2017-03-11] MEDS: DUONEB *Not for PRN Use IH SCH ×4 (08:58→19:43)
[2017-03-11] MEDS: MAXIPIME 1 GM in NACL 0.9% 20 ML IV SCH (09:09)
[2017-03-11] MEDS: HEPARIN SUB-Q SCH ×2 (09:09→21:52)
[2017-03-11] MEDS: PEPCID IV SCH (09:09)
--- NOTE | 2017-03-11 09:34 | Progress Note ---
Assessment and Plan Assessment and plan: 47-year-old female patient multiple medical problems, large CVA , hypoxic encephalopathy , status post cardiac arrest , vegetative state , atrial fibrillation , sepsis , aspiration pneumonia , end-stage renal disease on hemodialysis , multiple sacral and lower extremity decubiti requiring debridement , severe protein calorie malnutrition peritonitis / perforation, multiple surgeries, DO NOT RESUSCITATE status,prolonged hospital stay and poor prognosis, Remains febrile and tachycardic, tracheostomy vent dependent --Febrile illness and sepsis, follow cultures, continue antibiotics per ID, supportive care --Acute respiratory failure status post tracheostomy vent dependent Continue current management pulmonary following --Status post cardiac arrest/anoxic encephalopathy/status post tracheostomy --Persistent agitated state/DO NOT RESUSCITATE status, family not ready for hospice --Enterococcal septicemia; continue current management ID following, PRINCE negative for vegetations --Peritonitis ; due to gastric perforation, status post exploratory laparotomy, but gastrostomy, abdominal washout and drain placement Continue current management --End-stage renal disease on hemodialysis --Large CVA; continue current management --Aspiration pneumonia; completed multiple courses of antibiotics, ID following --Atrial fibrillation, intermittent episodes of rapid ventricular rate, continue amiodarone --Severe protein calorie malnutrition; nutrition consult and supportive care --Multiple sacral and lower extremity decubitus ulcers; status post debridement , continue wound care --DO NOT RESUSCITATE status Poor prognosis Many consultations the recommendations noted appreciated Critical care time 31 minutes - The high probability of a clinically significant, sudden or life threatening deterioration of the [neurologic, CV] system(s) required my full and direct attention, intervention and personal management. The aggregate critical care time was [31] minutes. This time is in addition to time spent performing reported procedures but includes the following: [x] Data Review and interpretation [x] Patient assessment and monitoring of vital signs [x] Documentation [x] Medication orders and management History Interval history: Patient seen and evaluated in her room this morning Medical records reviewed Febrile MAXIMUM TEMPERATURE of 101, cultures obtained Tachycardic on amiodarone Noncommunicative, vital signs reviewed Hospitalist Physical - Constitutional Vitals: Temp Pulse Resp BP Pulse Ox 99.4 F 111 H 32 H 99/52 100 03/11/17 08:00 03/11/17 08:53 03/11/17 08:53 03/11/17 08:00 03/11/17 08:00 General appearance: Present: no acute distress, cachectic, other (unresponsive) - Neck Neck: Present: supple, normal ROM (tracheostomy) - Respiratory Respiratory effort: normal Respiratory: bilateral: diminished, rhonchi, negative: rales, wheezing - Cardiovascular Rhythm: irregularly irregular Heart Sounds: Present: S1 & S2 (tachycardia) - Extremities Extremities: abnormal (contracted) Extremity abnormal: edema, other (decubitus ulcers) - Abdominal General gastrointestinal: soft, non-tender, non-distended, other (PEG tube in place) - Integumentary Integumentary: Present: clear, warm - Psychiatric Psychiatric: other (noncommunicative) - Neurologic Neurologic: other (unresponsive, spontaneous opening eyes) Results - Labs CBC & Chem 7: 02/24/17 10:05 03/10/17 04:46 Labs: Laboratory Last Values WBC 10.2 K/mm3 (4.5-11.0) 02/24/17 10:05 RBC 2.95 M/mm3 (3.65-5.03) L 02/24/17 10:05 Hgb 8.4 gm/dl (10.1-14.3) L 02/24/17 10:05 Hct 25.7 % (30.3-42.9) L 02/24/17 10:05 MCV 87 fl (79-97) 02/24/17 10:05 MCH 28 pg (28-32) 02/24/17 10:05 MCHC 33 % (30-34) 02/24/17 10:05 RDW 20.8 % (13.2-15.2) H 02/24/17 10:05 Plt Count 333 K/mm3 (140-440) 02/24/17 10:05 Lymph % (Auto) 19.8 % (13.4-35.0) 02/24/17 10:05 [place] % (Auto) 7.2 % (0.0-7.3) 02/24/17 10:05 Eos % (Auto) 0.7 % (0.0-4.3) 02/24/17 10:05 Baso % (Auto) 0.5 % (0.0-1.8) 02/24/17 10:05 Lymph # 2.0 K/mm3 (1.2-5.4) 02/24/17 10:05 Aurora # 0.7 K/mm3 (0.0-0.8) 02/24/17 10:05 Eos # 0.1 K/mm3 (0.0-0.4) 02/24/17 10:05 Baso # 0.0 K/mm3 (0.0-0.1) 02/24/17 10:05 Add Manual Diff Complete 12/19/16 05:02 Total Counted 100 12/19/16 05:02 Seg Neutrophils % 71.8 % (40.0-70.0) H 02/24/17 10:05 Seg Neuts % (Manual) 64.0 % (40.0-70.0) 12/19/16 05:02 Band Neutrophils % 15.0 % 12/19/16 05:02 Lymphocytes % (Manual) 13.0 % (13.4-35.0) L 12/19/16 05:02 Reactive Lymphs % (Man) 0 % 12/19/16 05:02 Monocytes % (Manual) 7.0 % (0.0-7.3) 12/19/16 05:02 Eosinophils % (Manual) 0 % (0.0-4.3) 12/19/16 05:02 Basophils % (Manual) 1.0 % (0.0-1.8) 12/19/16 05:02 Metamyelocytes % 0 % 12/19/16 05:02 Myelocytes % 0 % 12/19/16 05:02 Promyelocytes % 0 % 12/19/16 05:02 Blast Cells % 0 % 12/19/16 05:02 Nucleated RBC % 1.0 % (0.0-0.9) H 12/19/16 05:02 Seg Neutrophils # 7.3 K/mm3 (1.8-7.7) 02/24/17 10:05 Seg Neutrophils # Man 12.9 K/mm3 (1.8-7.7) H 12/19/16 05:02 Band Neutrophils # 3.0 K/mm3 12/19/16 05:02 Lymphocytes # (Manual) 2.6 K/mm3 (1.2-5.4) 12/19/16 05:02 Abs React Lymphs (Man) 0.0 K/mm3 12/19/16 05:02 Monocytes # (Manual) 1.4 K/mm3 (0.0-0.8) H 12/19/16 05:02 Eosinophils # (Manual) 0.0 K/mm3 (0.0-0.4) 12/19/16 05:02 Basophils # (Manual) 0.2 K/mm3 (0.0-0.1) H 12/19/16 05:02 Metamyelocytes # 0.0 K/mm3 12/19/16 05:02 Myelocytes # 0.0 K/mm3 12/19/16 05:02 Promyelocytes # 0.0 K/mm3 12/19/16 05:02 Blast Cells # 0.0 K/mm3 12/19/16 05:02 Pathologist Review 09/13/16 04:00 WBC Morphology Not Reportable 12/19/16 05:02 Hypersegmented Neuts Not Reportable 12/19/16 05:02 Hyposegmented Neuts Not Reportable 12/19/16 05:02 Hypogranular Neuts Not Reportable 12/19/16 05:02 Smudge Cells Not Reportable 12/19/16 05:02 Toxic Granulation Not Reportable 12/19/16 05:02 Toxic Vacuolation Not Reportable 12/19/16 05:02 Dohle Bodies Not Reportable 12/19/16 05:02 Pelger-Huet Anomaly Not Reportable 12/19/16 05:02 Jasmina Rods Not Reportable 12/19/16 05:02 Platelet Estimate Consistent w auto 12/19/16 05:02 Clumped Platelets Not Reportable 12/19/16 05:02 Plt Clumps, EDTA Not Reportable 12/19/16 05:02 Large Platelets Not Reportable 12/19/16 05:02 Giant Platelets Not Reportable 12/19/16 05:02 Platelet Satelliting Not Reportable 12/19/16 05:02 Plt Morphology Comment Not Reportable 12/19/16 05:02 RBC Morphology Not Reportable 12/19/16 05:02 Dimorphic RBCs Not Reportable 12/19/16 05:02 Polychromasia Not Reportable 12/19/16 05:02 Hypochromasia Not Reportable 12/19/16 05:02 Poikilocytosis Not Reportable 12/19/16 05:02 Anisocytosis Not Reportable 12/19/16 05:02 Microcytosis Not Reportable 12/19/16 05:02 Macrocytosis Not Reportable 12/19/16 05:02 Spherocytes Not Reportable 12/19/16 05:02 Pappenheimer Bodies Not Reportable 12/19/16 05:02 Sickle Cells Not Reportable 12/19/16 05:02 Target Cells Few 12/19/16 05:02 Tear Drop Cells Not Reportable 12/19/16 05:02 Ovalocytes Not Reportable 12/19/16 05:02 Stomatocytes Rare 12/03/16 04:00 Helmet Cells Not Reportable 12/19/16 05:02 [place] Bodies Not Reportable 12/19/16 05:02 [place] Rings Not Reportable 12/19/16 05:02 [place] Cells Not Reportable 12/19/16 05:02 Bite Cells Not Reportable 12/19/16 05:02 Crenated Cell Not Reportable 12/19/16 05:02 Elliptocytes Not Reportable 12/19/16 05:02 Acanthocytes (Spur) Not Reportable 12/19/16 05:02 Rouleaux Not Reportable 12/19/16 05:02 Hemoglobin C Crystals Not Reportable 12/19/16 05:02 Schistocytes Not Reportable 12/19/16 05:02 Malaria parasites Not Reportable 12/19/16 05:02 ESR > 140.0 mm/Hr (0-20) 09/08/16 11:48 Jun Bodies Not Reportable 12/19/16 05:02 Hem Pathologist Commnt No 12/19/16 05:02 PT 15.4 Sec. (12.2-14.9) H 01/13/17 15:50 INR 1.16 (0.87-1.13) H 01/13/17 15:50 APTT 33.0 Sec. (24.2-36.6) 10/09/16 03:45 Thrombin Time 16.8 Sec. (15.1-19.6) 09/03/16 00:10 Fibrinogen 750 mg/dl (211-480) H 09/08/16 11:48 Lupus Anticoagulant see below 09/12/16 09:59 LA PTT Baseline See scanned report 09/12/16 09:59 dRVVT Confirm Interp Positive (Negative) H 09/12/16 09:59 dRVVT Screen 50:50 See scanned report 09/12/16 09:59 dRVVT Mix Interpret See scanned report 09/12/16 09:59 Protein C Antigen 122 % (70-140) 09/08/16 15:35 Free Protein S 97 % normal (50-147) 09/08/16 15:35 Total Protein S 109 % (70-140) 09/08/16 15:35 Antithrombin III Ag 100 % (80-120) 09/08/16 15:35 Heparin Anti-Xa, Unfract Negative (Negative) 09/29/16 13:35 Factor V Activity 182 % (65-150) H 09/08/16 15:35 POC ABG pH 7.518 (7.35-7.45) H 03/03/17 20:17 ABG pH 7.450 pH Units (7.350-7.450) 12/05/16 Unknown POC ABG pCO2 28.8 (35-45) L 03/03/17 20: ABG pCO2 29.6 mm Hg 12/05/16 Unknown POC ABG pO2 61 (80-105) L 03/03/17 20: ABG pO2 75.2 mm Hg (80.0-90.0) L 12/05/16 Unknown POC ABG HCO3 23.4 03/03/17 20: ABG HCO3 20.1 mmol/L (20.0-26.0) 12/05/16 Unknown POC ABG Total CO2 24 03/03/17 20:17 POC ABG O2 Sat 94 03/03/17: ABG O2 Saturation 96.8 % (95.0-99.0) 12/05/16 Unknown ABG O2 Content 9.9 (0.0-44) 12/05/16 Unknown POC ABG Base Excess 0 03/03/17: ABG Base Excess -3.4 mmol/L (-2.0-3.0) L 12/05/16 Unknown ABG Hemoglobin 7.4 gm/dl (12.0-16.0) L 12/05/16 Unknown ABG Carboxyhemoglobin 1.8 % (0.0-5.0) 12/05/16 Unknown ABG Methemoglobin 0.6 % (0.0-1.5) 12/05/16 Unknown Oxyhemoglobin 94.5 % (95.0-99.0) L 12/05/16 Unknown FiO2 40 % 03/03/17 20:17 Sodium 135 mmol/L (137-145) L 03/10/17 04:46 Potassium 3.6 mmol/L (3.6-5.0) 03/10/17 04:46 Chloride 96.3 mmol/L (98-107) L 03/10/17 04:46 Carbon Dioxide 21 mmol/L (22-30) L 03/10/17 04:46 Anion Gap 21 mmol/L 03/10/17 04:46 BUN 46 mg/dL (7-17) H 03/10/17 04:46 Creatinine 2.2 mg/dL (0.7-1.2) H 03/10/17 04:46 Estimated GFR 29 ml/min 03/10/17 04:46 BUN/Creatinine Ratio 21 % 03/10/17 04:46 Glucose 106 mg/dL (65-100) H 03/10/17 04:46 POC Glucose 108 (70-105) H 03/11/17 05:19 Osmolality 351 Mosm/kg 09/16/16 11:47 Lactic Acid 2.30 mmol/L (0.7-2.0) H* 01/09/17 08:22 Calcium 8.2 mg/dL (8.4-10.2) L 03/10/17 04:46 Ionized Calcium 6.0 mg/dL (4.8-5.6) H 02/15/17 19:08 Phosphorus 3.10 mg/dL (2.5-4.5) D 03/10/17 04:46 Magnesium 1.90 mg/dL (1.7-2.3) 03/10/17 04:46 Total Bilirubin 0.50 mg/dL (0.1-1.2) 03/06/17 03:52 Direct Bilirubin 0.2 mg/dL (0-0.2) 01/28/17 04:00 Indirect Bilirubin 0.3 mg/dL 01/28/17 04:00 AST 18 units/L (5-40) 03/06/17 03:52 ALT 18 units/L (7-56) 03/06/17 03:52 Alkaline Phosphatase 165 units/L (35-129) H 03/06/17 03:52 Ammonia 27.0 umol/L (25-60) 09/07/16 08:37 Lactate Dehydrogenase 170 units/L (91-180) 01/13/17 15:50 Total Creatine Kinase 121 units/L (30-135) 09/29/16 20:12 CK-MB (CK-2) < 1.0 ng/mL (0.0-4.0) 09/29/16 20:12 CK-MB (CK-2) Rel Index 0.8 (0-4) 09/29/16 20:12 Troponin T 0.204 ng/mL (0.00-0.029) H* 09/29/16 20:12 C-Reactive Protein 8.10 mg/dL (0.00-1.30) H 01/31/17 11:12 Total Protein 7.0 g/dL (6.3-8.2) 03/06/17 03:52 Albumin 1.5 g/dL (3.9-5) L 03/06/17 03:52 Albumin/Globulin Ratio 0.3 % 03/06/17 03:52 Prealbumin 0.110 g/L (0.200-0.400) L 12/29/16 05:15 Triglycerides 55 mg/dL (2-149) 02/06/17 04:45 Cholesterol 31 mg/dL (50-199) L 09/29/16 20:12 LDL Cholesterol Direct 4 mg/dL (50-130) L 09/29/16 20:12 HDL Cholesterol 3 mg/dL (40-59) L 09/29/16 20:12 Cholesterol/HDL Ratio 10.33 % 09/29/16 20:12 Angiotensin Convert Enz See scanned report 09/08/16 11:48 Renin 0.99 ng/mL/h (0.25-5.82) 10/07/16 10:56 Aldosterone <1 ng/dL () 10/07/16 10:56 Aldosterone/Renin Dir see below 10/07/16 10:56 Serotonin Release Assay See scanned report 09/29/16 13:35 25-OH Vitamin D Total 13 ng/mL (30-100) L 02/15/17 19:08 25-Hydroxy Vitamin D2 . 02/15/17 19:08 25-Hydroxy Vitamin D3 . 02/15/17 19:08 TSH 1.010 mlU/mL (0.270-4.200) 09/07/16 08:37 HCG, Qual Negative (Negative) 09/03/16 00:10 PTH Intact 10.88 pg/mL (15-65) L 02/15/17 19:08 Total Cortisol 18.2 mcg/dL () 02/02/17 20:09 Urine Color Yellow (Yellow) 11/05/16 13:09 Urine Turbidity Clear (Clear) 11/05/16 13:09 Urine pH 9.0 (5.0-7.0) H 11/05/16 13:09 Ur Specific [place]ison 1.011 (1.003-1.030) 11/05/16 13:09 Urine Protein 100 mg/dl mg/dL (Negative) 11/05/16 13:09 Urine Glucose (UA) Neg mg/dL (Negative) 11/05/16 13:09 Urine Ketones Neg mg/dL (Negative) 11/05/16 13:09 Urine Blood Neg (Negative) 11/05/16 13:09 Urine Nitrite Neg (Negative) 11/05/16 13:09 Urine Bilirubin Neg (Negative) 11/05/16 13:09 Urine Urobilinogen < 2.0 mg/dL (<2.0) 11/05/16 13:09 Ur Leukocyte Esterase Neg (Negative) 11/05/16 13:09 Urine WBC (Auto) 4.0 /HPF (0.0-6.0) 11/05/16 13:09 Urine RBC (Auto) 1.0 /HPF (0.0-6.0) 11/05/16 13:09 U Epithel Cells (Auto) 1.0 /HPF (0-13.0) 10/07/16 18:30 Urine Bacteria (Auto) 4+ /HPF (Negative) 11/05/16 13:09 Urine WBC Clumps 2+ /HPF 09/07/16 02:47 Hyaline Casts 4 /LPF 09/07/16 02:47 Urine Mucus Few /HPF 10/07/16 18:30 Urine Yeast (Budding) 3+ /HPF 10/07/16 18:30 Urine Eosinophils None seen (None Seen) 09/07/16 16:00 Urine Total Volume 950 11/12/16 10:18 Urine Creatinine 19.7 mg/dL (0.1-20.0) 11/12/16 10:18 Height (in) 65.0 inches 11/12/16 10:18 Weight (lb) 181.0 lbs 11/12/16 10:18 Creatinine Clearance 5 11/12/16 10:18 Urine Sodium 36 mEq/L 09/16/16 19:19 Urine Total Protein 16 mg/dL (5-11.8) H 09/16/16 19:19 Fluid Type Pleural 01/13/17 12:10 Fluid Color Yellow 01/13/17 12:10 Fluid Appearance Hazy 01/13/17 12:10 Fluid WBC 182 /mm3 01/13/17 12:10 Fluid RBC 41 /mm3 01/13/17 12:10 Fluid Seg Neutrophils 85.0 % 01/13/17 12:10 Fluid Lymphocytes 8.0 % 01/13/17 12:10 Fluid Reactive Lymphs 0 % 01/13/17 12:10 Fluid Monocytes 6.0 % 01/13/17 12:10 Fluid Eosinophils 1.0 % 01/13/17 12:10 Fluid Basophils 0 % 01/13/17 12:10 Fluid Total Protein 3.0 (15.0-45.0) L 01/13/17 12:10 Fluid LDH 1322 01/13/17 12:10 Fluid Comment Diff performed 01/13/17 12:10 Vancomycin Trough 2.3 ug/mL (5.0-20.0) L 09/21/16 13:00 Random Vancomycin 17.7 ug/mL (0-40.0) 03/06/17 03:52 Urine Opiates Screen Presumptive negative 09/03/16 15:11 Urine Methadone Screen Presumptive positive 09/03/16 15:11 Ur Barbiturates Screen Presumptive positive 09/03/16 15:11 Ur Phencyclidine Scrn Presumptive negative 09/03/16 15:11 Ur Amphetamines Screen Presumptive negative 09/03/16 15:11 U Benzodiazepines Scrn Presumptive negative 09/03/16 15:11 Urine Cocaine Screen Presumptive negative 09/03/16 15:11 U Marijuana (THC) Screen Presumptive positive 09/03/16 15:11 Drugs of Abuse Note Disclamer 09/03/16 15:11 Rheumatoid Factor 24 IU/ml (0-13) H 09/08/16 11:48 SAHIL Screen Negative (Negative) 09/07/16 09:20 Proteinase 3 (PR3) Ab <1.0 AI (<1.0) 09/07/16 09:20 Myeloperoxidase Ab <1.0 AI (<1.0) 09/07/16 09:20 Sjogren's Antibody <1.0 AI (<1.0) 09/08/16 15:35 Scl-70 Scleroderma Ab <1.0 AI (<1.0) 09/08/16 15:35 Centromere B Antibody <1.0 AI (<1.0) 09/08/16 12:02 Heparin-induced Plt Ab Negative (Negative) 09/29/16 13:35 UF Heparin High Dose 11 % Release 09/29/16 13:35 SUDHIR UFH Low Dose 0.1 6 % Release 09/29/16 13:35 SUDHIR UFH Low Dose 0.5 8 % Release 09/29/16 13:35 Cardiolipid IgG Ab <14 GPL (<=14) 09/12/16 09:59 Cardiolipid IgA Ab <11 APL (<=11) 09/12/16 09:59 Cardiolipid IgM Ab <12 MPL (<=12) 09/12/16 09:59 Complement C3 148 mg/dL (90-180) 09/07/16 09:20 Complement C4 58 mg/dL (16-47) H 09/07/16 09:20 RPR Nonreactive (Nonreactive) 09/08/16 11:48 Hepatitis A IgM Ab Non-reactive (NonReactive) 09/24/16 14:40 Hep Bs Antigen Non-reactive (Negative) 09/24/16 14:40 Hep B Core IgM Ab Non-reactive (NonReactive) 09/24/16 14:40 Hepatitis C Antibody Non-reactive (NonReactive) 09/24/16 14:40 HIV 1&2 Antibody Rapid Non react (Non React) 09/08/16 11:48 HIV P24 Antigen Non react (Non React) 09/08/16 11:48 Miscellaneous Test Flexitest 1 H 01/09/17 18:45 Blood Type A POSITIVE 02/12/17 10:25 Antibody Screen Negative 02/12/17 10:25 DELORIS Antibody Screen Negative 11/24/16 11:20 Crossmatch See Detail 02/12/17 10:25
--- NOTE | 2017-03-11 10:51 | Progress Note ---
Assessment and Plan Assessment * End-stage renal disease on maintenance hemodialysis * Patient had acute kidney injury secondary to ATN. No evidence of renal recovery. Patient is dialysis dependent * GI bleed * Sepsis * s/p cardiac arrest * Candidemia * Acute CVA - left MCA with midline shift * Acute hypoxic respiratory failure * Left renal artery stenosis * Metabolic acidosis - improved * Anemia * Hyponatremia - multifactorial * tachycardia * Pleural effusion Plan: * Uneventful hemodialysis yesterday * Continue dialysis on Mondays, Wednesdays and Fridays schedule for now. * Continue PRN albumin for blood pressure support * Packed RBC transfusion as needed per primary team * Patient's serum creatinine is noted to be low. However she is oliguric and remains volume overloaded. Needs to be maintained on dialysis at this time. . * Avoid nephrotoxins * Adjust meds for GFR less than 10 * No evidence of renal recovery at this time * Patient currently has left femoral Vas-Cath in place Subjective Date of service: 03/11/17 Principal diagnosis: Acute resp failure on MVS; S/P Acute CVA; Acute Encephalopathy; JUANITA Interval history: She is currently on a Levophed drip as well as amiodarone drip. She is on the ventilator. Currently on 25% FiO2. Objective - Vital Signs Vital signs: Vital Signs - 12hr 03/10/17 03/10/17 03/10/17 23:00 23:16 23:30 Temperature Pulse Rate 103 H 106 H 107 H Pulse Rate [ From Monitor] Pulse Rate [ Throughout] Respiratory 27 H 29 H 24 Rate Respiratory Rate [ Throughout] Blood Pressure 92/55 92/55 92/55 O2 Sat by Pulse 99 96 96 Oximetry O2 Sat by Pulse Oximetry [ Assessment] 03/10/17 03/10/17 03/11/17 23:32 23:34 00:00 Temperature 98.6 F Pulse Rate 105 H 105 H Pulse Rate [ From Monitor] Pulse Rate [ Throughout] Respiratory 18 17 Rate Respiratory Rate [ Throughout] Blood Pressure 92/55 96/50 O2 Sat by Pulse 99 99 Oximetry O2 Sat by Pulse Oximetry [ Assessment] 03/11/17 03/11/17 03/11/17 00:30 01:00 01:30 Temperature Pulse Rate 105 H 108 H 108 H Pulse Rate [ From Monitor] Pulse Rate [ Throughout] Respiratory 23 20 24 Rate Respiratory Rate [ Throughout] Blood Pressure 96/50 86/46 99/59 O2 Sat by Pulse 99 98 99 Oximetry O2 Sat by Pulse Oximetry [ Assessment] 03/11/17 03/11/17 03/11/17 02:00 02:30 03:00 Temperature Pulse Rate 110 H 113 H 114 H Pulse Rate [ From Monitor] Pulse Rate [ Throughout] Respiratory 24 20 25 H Rate Respiratory Rate [ Throughout] Blood Pressure 99/59 93/51 95/60 O2 Sat by Pulse 100 100 99 Oximetry O2 Sat by Pulse 100 Oximetry [ Assessment] 03/11/17 03/11/17 03/11/17 03:22 03:30 04:00 Temperature 98.9 F Pulse Rate 111 H 107 H Pulse Rate [ From Monitor] Pulse Rate [ Throughout] Respiratory 25 H 22 Rate Respiratory Rate [ Throughout] Blood Pressure 95/60 97/54 O2 Sat by Pulse 100 100 Oximetry O2 Sat by Pulse Oximetry [ Assessment] 03/11/17 03/11/17 03/11/17 04:30 05:00 05:30 Temperature Pulse Rate 107 H 106 H 105 H Pulse Rate [ From Monitor] Pulse Rate [ Throughout] Respiratory 18 24 15 Rate Respiratory Rate [ Throughout] Blood Pressure 97/54 99/57 99/57 O2 Sat by Pulse 100 97 100 Oximetry O2 Sat by Pulse Oximetry [ Assessment] 03/11/17 03/11/17 03/11/17 06:00 06:30 07:00 Temperature Pulse Rate 112 H 111 H 111 H Pulse Rate [ From Monitor] Pulse Rate [ Throughout] Respiratory 24 22 23 Rate Respiratory Rate [ Throughout] Blood Pressure 95/57 95/57 89/50 O2 Sat by Pulse 100 100 100 Oximetry O2 Sat by Pulse Oximetry [ Assessment] 03/11/17 03/11/17 03/11/17 07:30 08:00 08:30 Temperature 99.4 F Pulse Rate 107 H 112 H 108 H Pulse Rate [ 105 H From Monitor] Pulse Rate [ Throughout] Respiratory 20 34 H 22 Rate Respiratory Rate [ Throughout] Blood Pressure 89/50 99/52 92/48 O2 Sat by Pulse 100 100 99 Oximetry O2 Sat by Pulse Oximetry [ Assessment] 03/11/17 03/11/17 03/11/17 08:40 08:53 09:00 Temperature Pulse Rate 113 H Pulse Rate [ From Monitor] Pulse Rate [ 112 H 111 H Throughout] Respiratory 28 H Rate Respiratory 33 H 32 H Rate [ Throughout] Blood Pressure 111/64 O2 Sat by Pulse 100 Oximetry O2 Sat by Pulse Oximetry [ Assessment] 03/11/17 03/11/17 09:30 10:00 Temperature Pulse Rate 118 H 116 H Pulse Rate [ From Monitor] Pulse Rate [ Throughout] Respiratory 34 H 33 H Rate Respiratory Rate [ Throughout] Blood Pressure 90/51 89/50 O2 Sat by Pulse 94 96 Oximetry O2 Sat by Pulse Oximetry [ Assessment] - General Appearance General appearance: well-developed, well-nourished, intubated EENT: ATNC Neck: other (tracheostomy tube in place. Connected to the ventilator) Respiratory: Present: Ronchi (few scattered rhonchi) Gastrointestinal: normoactive bowel sounds Integumentary: other (1+ edema. Left femoral Vas-Cath in place) - Lab 02/24/17 10:05 03/10/17 04:46 Most recent lab results ABG pH 7.450 pH Units (7.350-7.450) 12/05/16 Unknown ABG pCO2 29.6 mm Hg 12/05/16 Unknown ABG pO2 75.2 mm Hg (80.0-90.0) L 12/05/16 Unknown ABG HCO3 20.1 mmol/L (20.0-26.0) 12/05/16 Unknown ABG O2 Saturation 96.8 % (95.0-99.0) 12/05/16 Unknown Calcium 8.2 mg/dL (8.4-10.2) L 03/10/17 04:46 Phosphorus 3.10 mg/dL (2.5-4.5) D 03/10/17 04:46 Magnesium 1.90 mg/dL (1.7-2.3) 03/10/17 04:46 Urine Creatinine 19.7 mg/dL (0.1-20.0) 11/12/16 10:18 Urine Sodium 36 mEq/L 09/16/16 19:19 Urine Total Protein 16 mg/dL (5-11.8) H 09/16/16 19:19
[2017-03-11] MEDS: LEVOPHED DRIP 4 MG/NS 250 ML 4 MG/250 ML BAG IV SCH ×2 (11:37→21:58)
[2017-03-11] MEDS: DURAGESIC TD SCH (11:38)
[2017-03-11] MEDS: CORDARONE 900 MG in D5W 482 ML IV SCH (17:54)
[2017-03-11] MEDS ORDERED: TPN ADULT IV SCH (20:00)
[2017-03-12] MEDS: HumuLIN R SUB-Q SCH ×4 (02:24→18:03)
[2017-03-12] MEDS: LOPRESSOR IV SCH (04:40)
[2017-03-12] MEDS: FLAGYL 500 MG/100 ML 500 MG/100 ML BAG IV SCH ×3 (06:18→22:31)
[2017-03-12] MEDS: REGLAN IV SCH ×3 (06:19→22:32)
--- NOTE | 2017-03-12 08:13 | Progress Note ---
Assessment and Plan Assessment and plan: 47-year-old female patient multiple medical problems, large CVA , hypoxic encephalopathy , status post cardiac arrest , vegetative state , atrial fibrillation , sepsis , aspiration pneumonia , end-stage renal disease on hemodialysis , multiple sacral and lower extremity decubiti requiring debridement , severe protein calorie malnutrition peritonitis / perforation, multiple surgeries, DO NOT RESUSCITATE status,prolonged hospital stay and poor prognosis, Patient is afebrile > 24 hrs --Febrile illness and sepsis, follow cultures, continue antibiotics per ID, supportive care --Acute respiratory failure status post tracheostomy vent dependent Continue current management pulmonary following --Status post cardiac arrest/anoxic encephalopathy/status post tracheostomy --Persistent agitated state/DO NOT RESUSCITATE status, family not ready for hospice --Enterococcal septicemia; continue current management ID following, PRINCE negative for vegetations --Peritonitis ; due to gastric perforation, status post exploratory laparotomy, but gastrostomy, abdominal washout and drain placement Continue current management --End-stage renal disease on hemodialysis --Large CVA; continue current management --Aspiration pneumonia; completed multiple courses of antibiotics, ID following --Atrial fibrillation, intermittent episodes of rapid ventricular rate, continue amiodarone --Severe protein calorie malnutrition; nutrition consult and supportive care --Multiple sacral and lower extremity decubitus ulcers; status post debridement , continue wound care --DO NOT RESUSCITATE status Poor prognosis Many consultations the recommendations noted appreciated Critical care time 31 minutes - The high probability of a clinically significant, sudden or life threatening deterioration of the [neurologic, CV] system(s) required my full and direct attention, intervention and personal management. The aggregate critical care time was [31] minutes. This time is in addition to time spent performing reported procedures but includes the following: [x] Data Review and interpretation [x] Patient assessment and monitoring of vital signs [x] Documentation [x] Medication orders and management History Interval history: Patient seen and examined Afebrile >24 hrs,Clinically no change Non communicative on Levophed,amio drips Vitals reviewed Hospitalist Physical - Constitutional Vitals: Temp Pulse Resp BP Pulse Ox 97.9 F 87 17 124/59 100 03/12/17 03:24 03/12/17 07:00 03/12/17 07:00 03/12/17 07:00 03/12/17 07:00 General appearance: Present: no acute distress, cachectic, other (spontaneous opening of eyes, unresponsive) - EENT Eyes: Present: PERRL - Neck Neck: Present: supple, other (tracheostomy) - Respiratory Respiratory effort: normal Respiratory: bilateral: diminished, rhonchi, negative: rales, wheezing - Cardiovascular Rhythm: regular Heart Sounds: Present: S1 & S2 - Extremities Extremities: no ischemia, abnormal (decubiti heel) Extremity abnormal: edema (trace edema) - Abdominal General gastrointestinal: soft, non-tender, non-distended, normal bowel sounds - Integumentary Integumentary: Present: clear, warm - Psychiatric Psychiatric: other (noncommunicative) - Neurologic Neurologic: other (noncommunicative) Results - Labs CBC & Chem 7: 02/24/17 10:05 03/10/17 04:46 Labs: Laboratory Last Values WBC 10.2 K/mm3 (4.5-11.0) 02/24/17 10:05 RBC 2.95 M/mm3 (3.65-5.03) L 02/24/17 10:05 Hgb 8.4 gm/dl (10.1-14.3) L 02/24/17 10:05 Hct 25.7 % (30.3-42.9) L 02/24/17 10:05 MCV 87 fl (79-97) 02/24/17 10:05 MCH 28 pg (28-32) 02/24/17 10:05 MCHC 33 % (30-34) 02/24/17 10:05 RDW 20.8 % (13.2-15.2) H 02/24/17 10:05 Plt Count 333 K/mm3 (140-440) 02/24/17 10:05 Lymph % (Auto) 19.8 % (13.4-35.0) 02/24/17 10:05 [place] % (Auto) 7.2 % (0.0-7.3) 02/24/17 10:05 Eos % (Auto) 0.7 % (0.0-4.3) 02/24/17 10:05 Baso % (Auto) 0.5 % (0.0-1.8) 02/24/17 10:05 Lymph # 2.0 K/mm3 (1.2-5.4) 02/24/17 10:05 [place] # 0.7 K/mm3 (0.0-0.8) 02/24/17 10:05 Eos # 0.1 K/mm3 (0.0-0.4) 02/24/17 10:05 Baso # 0.0 K/mm3 (0.0-0.1) 02/24/17 10:05 Add Manual Diff Complete 12/19/16 05:02 Total Counted 100 12/19/16 05:02 Seg Neutrophils % 71.8 % (40.0-70.0) H 02/24/17 10:05 Seg Neuts % (Manual) 64.0 % (40.0-70.0) 12/19/16 05:02 Band Neutrophils % 15.0 % 12/19/16 05:02 Lymphocytes % (Manual) 13.0 % (13.4-35.0) L 12/19/16 05:02 Reactive Lymphs % (Man) 0 % 12/19/16 05:02 Monocytes % (Manual) 7.0 % (0.0-7.3) 12/19/16 05:02 Eosinophils % (Manual) 0 % (0.0-4.3) 12/19/16 05:02 Basophils % (Manual) 1.0 % (0.0-1.8) 12/19/16 05:02 Metamyelocytes % 0 % 12/19/16 05:02 Myelocytes % 0 % 12/19/16 05:02 Promyelocytes % 0 % 12/19/16 05:02 Blast Cells % 0 % 12/19/16 05:02 Nucleated RBC % 1.0 % (0.0-0.9) H 12/19/16 05:02 Seg Neutrophils # 7.3 K/mm3 (1.8-7.7) 02/24/17 10:05 Seg Neutrophils # Man 12.9 K/mm3 (1.8-7.7) H 12/19/16 05:02 Band Neutrophils # 3.0 K/mm3 12/19/16 05:02 Lymphocytes # (Manual) 2.6 K/mm3 (1.2-5.4) 12/19/16 05:02 Abs React Lymphs (Man) 0.0 K/mm3 12/19/16 05:02 Monocytes # (Manual) 1.4 K/mm3 (0.0-0.8) H 12/19/16 05:02 Eosinophils # (Manual) 0.0 K/mm3 (0.0-0.4) 12/19/16 05:02 Basophils # (Manual) 0.2 K/mm3 (0.0-0.1) H 12/19/16 05:02 Metamyelocytes # 0.0 K/mm3 12/19/16 05:02 Myelocytes # 0.0 K/mm3 12/19/16 05:02 Promyelocytes # 0.0 K/mm3 12/19/16 05:02 Blast Cells # 0.0 K/mm3 12/19/16 05:02 Pathologist Review 09/13/16 04:00 WBC Morphology Not Reportable 12/19/16 05:02 Hypersegmented Neuts Not Reportable 12/19/16 05:02 Hyposegmented Neuts Not Reportable 12/19/16 05:02 Hypogranular Neuts Not Reportable 12/19/16 05:02 Smudge Cells Not Reportable 12/19/16 05:02 Toxic Granulation Not Reportable 12/19/16 05:02 Toxic Vacuolation Not Reportable 12/19/16 05:02 Dohle Bodies Not Reportable 12/19/16 05:02 Pelger-Huet Anomaly Not Reportable 12/19/16 05:02 Jasmina Rods Not Reportable 12/19/16 05:02 Platelet Estimate Consistent w auto 12/19/16 05:02 Clumped Platelets Not Reportable 12/19/16 05:02 Plt Clumps, EDTA Not Reportable 12/19/16 05:02 Large Platelets Not Reportable 12/19/16 05:02 Giant Platelets Not Reportable 12/19/16 05:02 Platelet Satelliting Not Reportable 12/19/16 05:02 Plt Morphology Comment Not Reportable 12/19/16 05:02 RBC Morphology Not Reportable 12/19/16 05:02 Dimorphic RBCs Not Reportable 12/19/16 05:02 Polychromasia Not Reportable 12/19/16 05:02 Hypochromasia Not Reportable 12/19/16 05:02 Poikilocytosis Not Reportable 12/19/16 05:02 Anisocytosis Not Reportable 12/19/16 05:02 Microcytosis Not Reportable 12/19/16 05:02 Macrocytosis Not Reportable 12/19/16 05:02 Spherocytes Not Reportable 12/19/16 05:02 Pappenheimer Bodies Not Reportable 12/19/16 05:02 Sickle Cells Not Reportable 12/19/16 05:02 Target Cells Few 12/19/16 05:02 Tear Drop Cells Not Reportable 12/19/16 05:02 Ovalocytes Not Reportable 12/19/16 05:02 Stomatocytes Rare 12/03/16 04:00 Helmet Cells Not Reportable 12/19/16 05:02 [place] Bodies Not Reportable 12/19/16 05:02 [place] Rings Not Reportable 12/19/16 05:02 [place] Cells Not Reportable 12/19/16 05:02 Bite Cells Not Reportable 12/19/16 05:02 Crenated Cell Not Reportable 12/19/16 05:02 Elliptocytes Not Reportable 12/19/16 05:02 Acanthocytes (Spur) Not Reportable 12/19/16 05:02 Rouleaux Not Reportable 12/19/16 05:02 Hemoglobin C Crystals Not Reportable 12/19/16 05:02 Schistocytes Not Reportable 12/19/16 05:02 Malaria parasites Not Reportable 12/19/16 05:02 ESR > 140.0 mm/Hr (0-20) 09/08/16 11:48 Jun Bodies Not Reportable 12/19/16 05:02 Hem Pathologist Commnt No 12/19/16 05:02 PT 15.4 Sec. (12.2-14.9) H 01/13/17 15:50 INR 1.16 (0.87-1.13) H 01/13/17 15:50 APTT 33.0 Sec. (24.2-36.6) 10/09/16 03:45 Thrombin Time 16.8 Sec. (15.1-19.6) 09/03/16 00:10 Fibrinogen 750 mg/dl (211-480) H 09/08/16 11:48 Lupus Anticoagulant see below 09/12/16 09:59 LA PTT Baseline See scanned report 09/12/16 09:59 dRVVT Confirm Interp Positive (Negative) H 09/12/16 09:59 dRVVT Screen 50:50 See scanned report 09/12/16 09:59 dRVVT Mix Interpret See scanned report 09/12/16 09:59 Protein C Antigen 122 % (70-140) 09/08/16 15:35 Free Protein S 97 % normal (50-147) 09/08/16 15:35 Total Protein S 109 % (70-140) 09/08/16 15:35 Antithrombin III Ag 100 % (80-120) 09/08/16 15:35 Heparin Anti-Xa, Unfract Negative (Negative) 09/29/16 13:35 Factor V Activity 182 % (65-150) H 09/08/16 15:35 POC ABG pH 7.518 (7.35-7.45) H 03/03/17 20:17 ABG pH 7.450 pH Units (7.350-7.450) 12/05/16 Unknown POC ABG pCO2 28.8 (35-45) L 03/03/17 20:17 ABG pCO2 29.6 mm Hg 12/05/16 Unknown POC ABG pO2 61 (80-105) L 03/03/17 20: ABG pO2 75.2 mm Hg (80.0-90.0) L 12/05/16 Unknown POC ABG HCO3 23.4 03/03/17 20:17 ABG HCO3 20.1 mmol/L (20.0-26.0) 12/05/16 Unknown POC ABG Total CO2 24 03/03/17 20:17 POC ABG O2 Sat 94 03/03/17 20:17 ABG O2 Saturation 96.8 % (95.0-99.0) 12/05/16 Unknown ABG O2 Content 9.9 (0.0-44) 12/05/16 Unknown POC ABG Base Excess 0 03/03/17 20: ABG Base Excess -3.4 mmol/L (-2.0-3.0) L 12/05/16 Unknown ABG Hemoglobin 7.4 gm/dl (12.0-16.0) L 12/05/16 Unknown ABG Carboxyhemoglobin 1.8 % (0.0-5.0) 12/05/16 Unknown ABG Methemoglobin 0.6 % (0.0-1.5) 12/05/16 Unknown Oxyhemoglobin 94.5 % (95.0-99.0) L 12/05/16 Unknown FiO2 40 % 03/03/17 20:17 Sodium 135 mmol/L (137-145) L 03/10/17 04:46 Potassium 3.6 mmol/L (3.6-5.0) 03/10/17 04:46 Chloride 96.3 mmol/L (98-107) L 03/10/17 04:46 Carbon Dioxide 21 mmol/L (22-30) L 03/10/17 04:46 Anion Gap 21 mmol/L 03/10/17 04:46 BUN 46 mg/dL (7-17) H 03/10/17 04:46 Creatinine 2.2 mg/dL (0.7-1.2) H 03/10/17 04:46 Estimated GFR 29 ml/min 03/10/17 04:46 BUN/Creatinine Ratio 21 % 03/10/17 04:46 Glucose 106 mg/dL (65-100) H 03/10/17 04:46 POC Glucose 127 (70-105) H 03/12/17 05:06 Osmolality 351 Mosm/kg 09/16/16 11:47 Lactic Acid 2.30 mmol/L (0.7-2.0) H* 01/09/17 08:22 Calcium 8.2 mg/dL (8.4-10.2) L 03/10/17 04:46 Ionized Calcium 6.0 mg/dL (4.8-5.6) H 02/15/17 19:08 Phosphorus 3.10 mg/dL (2.5-4.5) D 03/10/17 04:46 Magnesium 1.90 mg/dL (1.7-2.3) 03/10/17 04:46 Total Bilirubin 0.50 mg/dL (0.1-1.2) 03/06/17 03:52 Direct Bilirubin 0.2 mg/dL (0-0.2) 01/28/17 04:00 Indirect Bilirubin 0.3 mg/dL 01/28/17 04:00 AST 18 units/L (5-40) 03/06/17 03:52 ALT 18 units/L (7-56) 03/06/17 03:52 Alkaline Phosphatase 165 units/L (35-129) H 03/06/17 03:52 Ammonia 27.0 umol/L (25-60) 09/07/16 08:37 Lactate Dehydrogenase 170 units/L (91-180) 01/13/17 15:50 Total Creatine Kinase 121 units/L (30-135) 09/29/16 20:12 CK-MB (CK-2) < 1.0 ng/mL (0.0-4.0) 09/29/16 20:12 CK-MB (CK-2) Rel Index 0.8 (0-4) 09/29/16 20:12 Troponin T 0.204 ng/mL (0.00-0.029) H* 09/29/16 20:12 C-Reactive Protein 8.10 mg/dL (0.00-1.30) H 01/31/17 11:12 Total Protein 7.0 g/dL (6.3-8.2) 03/06/17 03:52 Albumin 1.5 g/dL (3.9-5) L 03/06/17 03:52 Albumin/Globulin Ratio 0.3 % 03/06/17 03:52 Prealbumin 0.110 g/L (0.200-0.400) L 12/29/16 05:15 Triglycerides 55 mg/dL (2-149) 02/06/17 04:45 Cholesterol 31 mg/dL (50-199) L 09/29/16 20:12 LDL Cholesterol Direct 4 mg/dL (50-130) L 09/29/16 20:12 HDL Cholesterol 3 mg/dL (40-59) L 09/29/16 20:12 Cholesterol/HDL Ratio 10.33 % 09/29/16 20:12 Angiotensin Convert Enz See scanned report 09/08/16 11:48 Renin 0.99 ng/mL/h (0.25-5.82) 10/07/16 10:56 Aldosterone <1 ng/dL () 10/07/16 10:56 Aldosterone/Renin Dir see below 10/07/16 10:56 Serotonin Release Assay See scanned report 09/29/16 13:35 25-OH Vitamin D Total 13 ng/mL (30-100) L 02/15/17 19:08 25-Hydroxy Vitamin D2 . 02/15/17 19:08 25-Hydroxy Vitamin D3 . 02/15/17 19:08 TSH 1.010 mlU/mL (0.270-4.200) 09/07/16 08:37 HCG, Qual Negative (Negative) 09/03/16 00:10 PTH Intact 10.88 pg/mL (15-65) L 02/15/17 19:08 Total Cortisol 18.2 mcg/dL () 02/02/17 20:09 Urine Color Yellow (Yellow) 11/05/16 13:09 Urine Turbidity Clear (Clear) 11/05/16 13:09 Urine pH 9.0 (5.0-7.0) H 11/05/16 13:09 Ur Specific [place] 1.011 (1.003-1.030) 11/05/16 13:09 Urine Protein 100 mg/dl mg/dL (Negative) 11/05/16 13:09 Urine Glucose (UA) Neg mg/dL (Negative) 11/05/16 13:09 Urine Ketones Neg mg/dL (Negative) 11/05/16 13:09 Urine Blood Neg (Negative) 11/05/16 13:09 Urine Nitrite Neg (Negative) 11/05/16 13:09 Urine Bilirubin Neg (Negative) 11/05/16 13:09 Urine Urobilinogen < 2.0 mg/dL (<2.0) 11/05/16 13:09 Ur Leukocyte Esterase Neg (Negative) 11/05/16 13:09 Urine WBC (Auto) 4.0 /HPF (0.0-6.0) 11/05/16 13:09 Urine RBC (Auto) 1.0 /HPF (0.0-6.0) 11/05/16 13:09 U Epithel Cells (Auto) 1.0 /HPF (0-13.0) 10/07/16 18:30 Urine Bacteria (Auto) 4+ /HPF (Negative) 11/05/16 13:09 Urine WBC Clumps 2+ /HPF 09/07/16 02:47 Hyaline Casts 4 /LPF 09/07/16 02:47 Urine Mucus Few /HPF 10/07/16 18:30 Urine Yeast (Budding) 3+ /HPF 10/07/16 18:30 Urine Eosinophils None seen (None Seen) 09/07/16 16:00 Urine Total Volume 950 11/12/16 10:18 Urine Creatinine 19.7 mg/dL (0.1-20.0) 11/12/16 10:18 Height (in) 65.0 inches 11/12/16 10:18 Weight (lb) 181.0 lbs 11/12/16 10:18 Creatinine Clearance 5 11/12/16 10:18 Urine Sodium 36 mEq/L 09/16/16 19:19 Urine Total Protein 16 mg/dL (5-11.8) H 09/16/16 19:19 Fluid Type Pleural 01/13/17 12:10 Fluid Color Yellow 01/13/17 12:10 Fluid Appearance Hazy 01/13/17 12:10 Fluid WBC 182 /mm3 01/13/17 12:10 Fluid RBC 41 /mm3 01/13/17 12:10 Fluid Seg Neutrophils 85.0 % 01/13/17 12:10 Fluid Lymphocytes 8.0 % 01/13/17 12:10 Fluid Reactive Lymphs 0 % 01/13/17 12:10 Fluid Monocytes 6.0 % 01/13/17 12:10 Fluid Eosinophils 1.0 % 01/13/17 12:10 Fluid Basophils 0 % 01/13/17 12:10 Fluid Total Protein 3.0 (15.0-45.0) L 01/13/17 12:10 Fluid LDH 1322 01/13/17 12:10 Fluid Comment Diff performed 01/13/17 12:10 Vancomycin Trough 2.3 ug/mL (5.0-20.0) L 09/21/16 13:00 Random Vancomycin 17.7 ug/mL (0-40.0) 03/06/17 03:52 Urine Opiates Screen Presumptive negative 09/03/16 15:11 Urine Methadone Screen Presumptive positive 09/03/16 15:11 Ur Barbiturates Screen Presumptive positive 09/03/16 15:11 Ur Phencyclidine Scrn Presumptive negative 09/03/16 15:11 Ur Amphetamines Screen Presumptive negative 09/03/16 15:11 U Benzodiazepines Scrn Presumptive negative 09/03/16 15:11 Urine Cocaine Screen Presumptive negative 09/03/16 15:11 U Marijuana (THC) Screen Presumptive positive 09/03/16 15:11 Drugs of Abuse Note Disclamer 09/03/16 15:11 Rheumatoid Factor 24 IU/ml (0-13) H 09/08/16 11:48 SAHIL Screen Negative (Negative) 09/07/16 09:20 Proteinase 3 (PR3) Ab <1.0 AI (<1.0) 09/07/16 09:20 Myeloperoxidase Ab <1.0 AI (<1.0) 09/07/16 09:20 Sjogren's Antibody <1.0 AI (<1.0) 09/08/16 15:35 Scl-70 Scleroderma Ab <1.0 AI (<1.0) 09/08/16 15:35 Centromere B Antibody <1.0 AI (<1.0) 09/08/16 12:02 Heparin-induced Plt Ab Negative (Negative) 09/29/16 13:35 UF Heparin High Dose 11 % Release 09/29/16 13:35 SUDHIR UFH Low Dose 0.1 6 % Release 09/29/16 13:35 SUDHIR UFH Low Dose 0.5 8 % Release 09/29/16 13:35 Cardiolipid IgG Ab <14 GPL (<=14) 09/12/16 09:59 Cardiolipid IgA Ab <11 APL (<=11) 09/12/16 09:59 Cardiolipid IgM Ab <12 MPL (<=12) 09/12/16 09:59 Complement C3 148 mg/dL (90-180) 09/07/16 09:20 Complement C4 58 mg/dL (16-47) H 09/07/16 09:20 RPR Nonreactive (Nonreactive) 09/08/16 11:48 Hepatitis A IgM Ab Non-reactive (NonReactive) 09/24/16 14:40 Hep Bs Antigen Non-reactive (Negative) 09/24/16 14:40 Hep B Core IgM Ab Non-reactive (NonReactive) 09/24/16 14:40 Hepatitis C Antibody Non-reactive (NonReactive) 09/24/16 14:40 HIV 1&2 Antibody Rapid Non react (Non React) 09/08/16 11:48 HIV P24 Antigen Non react (Non React) 09/08/16 11:48 Miscellaneous Test Flexitest 1 H 01/09/17 18:45 Blood Type A POSITIVE 02/12/17 10:25 Antibody Screen Negative 02/12/17 10:25 DELORIS Antibody Screen Negative 11/24/16 11:20 Crossmatch See Detail 02/12/17 10:25
[2017-03-12] MEDS: DUONEB *Not for PRN Use IH SCH ×3 (08:24→20:19)
[2017-03-12] MEDS: MAXIPIME 1 GM in NACL 0.9% 20 ML IV SCH (09:43)
[2017-03-12] MEDS: HEPARIN SUB-Q SCH ×2 (09:43→22:32)
[2017-03-12] MEDS: PEPCID IV SCH (09:43)
--- NOTE | 2017-03-12 10:06 | Progress Note ---
Assessment and Plan Patient is 46-year-old woman with a history of hypertension, diabetes mellitus, asthma, hyperlipidemia, chronic kidney disease and anxiety, who was brought in by family because she couldn't get her words out, her face was also twisted, she was admitted for acute CVA and accelerated hypertension, she had a hx of poor adherence with her medications, and uncontrolled hypertension. Patient's SBP on admission was noted be greater than 260. TPA was started but this it was discontinued after 5 minutes because her blood pressure became uncontrolled. The TPA was not initiated again because the patient was outside the TPA window. Patient has had a prolonged hospital stay complicated with recurrent severe sepsis. Patient with most recent event also status post cardiac arrest on 11/21/16 , with CPR and ROSC. Acute on chronic Hypoxemic Respiratory Failure Sepsis -recurrent Intrabdominal abscess s/p peritoneal drain per IR s/p tracheostomy Hypertension Atrial Fibrillation with RVR Acute encephalopathy s/p CVA Oropharyngeal dysphagia Enterococcal bacteremia Sacral Decubitus Ulcer- unstageable s/p debridement Anemia Obesity JUANITA now on hemodialysis prn Enteric Fistula - VAP bundle addressed - continue NGT to LIS - continue wound care/wound vac per WCT - Vasopressor if MAP falls < 65mmHg - keep on with daily PSV trials and / or T-piece as tolerated - continue TPN administration (continue TPN; NPO except for meds) - continue airway clearance and secretion management - continue to wean FiO2 for sats > 94% - continue to monitor hemodynamics closely - continue HD/UF per nephrology - continue to follow electrolytes and correct as necessary - continue GI & VTE prophylaxis Transfuse 1 unit PRBC as needed to keep HgH>7g/dL .....she remains critically ill on life sustaining interventions including MVS and at risk for further deterioration including ...shelter prognosis remains poor ...DNR in the event of cardiac arrest - Patient Problems (1) Acute respiratory failure with hypoxia Current Visit: Yes Status: Acute (2) Acute blood loss anemia Current Visit: Yes Status: Resolved (3) Acute CVA (cerebrovascular accident) Current Visit: Yes Status: Acute (4) Chronic renal insufficiency Current Visit: Yes Status: Acute (5) Uncontrolled hypertension Current Visit: Yes Status: Acute (6) Leukocytosis (leucocytosis) Current Visit: Yes Status: Acute Qualifiers: Leukocytosis type: leukemoid reaction Qualified Code(s): D72.823 - Leukemoid reaction (7) Dislodged gastrostomy tube Current Visit: Yes Status: Acute (8) Fungemia Current Visit: Yes Status: Resolved (9) Cardiopulmonary arrest with successful resuscitation Current Visit: Yes Status: Acute Subjective Date of service: 03/12/17 Principal diagnosis: Acute resp failure on MVS; S/P Acute CVA; Acute Encephalopathy; JUANITA Interval history: Patient is seen today for: Acute resp failure on MVS; S/P Acute CVA; Acute Encephalopathy; JUANITA Seen and examined at bedside; 24hour events reviewed; nursing and respiratory care staff consulted; no adverse overnight events reported to me; she remains critically ill. Appears to be less responsive today with some posturing. No fevers Currently on norepinephrine at 4 mcg, to maintain MAP >65 Discussed with RT Discussed during interdisciplinary ICU team rounds Objective Vital Signs - 12hr 03/11/17 03/11/17 03/11/17 22:30 22:38 22:42 Temperature Pulse Rate 100 H 102 H 101 H Pulse Rate [ From Monitor] Pulse Rate [ Throughout] Respiratory 26 H 32 H Rate Respiratory Rate [ Throughout] Blood Pressure 113/64 113/64 O2 Sat by Pulse 100 100 Oximetry O2 Sat by Pulse Oximetry [ Assessment] 03/11/17 03/11/17 03/11/17 23:00 23:17 23:30 Temperature 98.7 F Pulse Rate 87 101 H Pulse Rate [ From Monitor] Pulse Rate [ Throughout] Respiratory 15 19 Rate Respiratory Rate [ Throughout] Blood Pressure 114/52 104/48 O2 Sat by Pulse 100 100 Oximetry O2 Sat by Pulse Oximetry [ Assessment] 03/12/17 03/12/17 03/12/17 00:00 00:23 00:30 Temperature Pulse Rate 95 H 102 H 95 H Pulse Rate [ From Monitor] Pulse Rate [ Throughout] Respiratory 15 20 Rate Respiratory Rate [ Throughout] Blood Pressure 87/38 113/64 77/32 O2 Sat by Pulse 100 100 100 Oximetry O2 Sat by Pulse Oximetry [ Assessment] 03/12/17 03/12/17 03/12/17 00:33 01:00 01:30 Temperature Pulse Rate 83 83 Pulse Rate [ 94 H From Monitor] Pulse Rate [ Throughout] Respiratory 22 20 21 Rate Respiratory Rate [ Throughout] Blood Pressure 112/52 103/51 O2 Sat by Pulse 100 100 100 Oximetry O2 Sat by Pulse Oximetry [ Assessment] 03/12/17 03/12/17 03/12/17 02:00 02:30 03:00 Temperature Pulse Rate 87 84 84 Pulse Rate [ From Monitor] Pulse Rate [ Throughout] Respiratory 15 15 14 Rate Respiratory Rate [ Throughout] Blood Pressure 108/63 108/54 100/51 O2 Sat by Pulse 100 100 100 Oximetry O2 Sat by Pulse Oximetry [ Assessment] 03/12/17 03/12/17 03/12/17 03:15 03:24 03:30 Temperature 97.9 F Pulse Rate 84 86 Pulse Rate [ From Monitor] Pulse Rate [ Throughout] Respiratory 17 Rate Respiratory Rate [ Throughout] Blood Pressure 100/51 100/53 O2 Sat by Pulse 100 100 Oximetry O2 Sat by Pulse 100 Oximetry [ Assessment] 03/12/17 03/12/17 03/12/17 04:00 04:05 04:30 Temperature Pulse Rate 92 H 85 Pulse Rate [ 85 From Monitor] Pulse Rate [ Throughout] Respiratory 19 16 14 Rate Respiratory Rate [ Throughout] Blood Pressure 112/64 103/54 O2 Sat by Pulse 100 100 100 Oximetry O2 Sat by Pulse Oximetry [ Assessment] 03/12/17 03/12/17 03/12/17 04:40 05:00 05:30 Temperature Pulse Rate 84 85 83 Pulse Rate [ From Monitor] Pulse Rate [ Throughout] Respiratory 17 19 Rate Respiratory Rate [ Throughout] Blood Pressure 103/51 104/50 100/51 O2 Sat by Pulse 100 100 Oximetry O2 Sat by Pulse Oximetry [ Assessment] 03/12/17 03/12/17 03/12/17 06:00 06:30 07:00 Temperature Pulse Rate 86 87 87 Pulse Rate [ From Monitor] Pulse Rate [ Throughout] Respiratory 19 17 17 Rate Respiratory Rate [ Throughout] Blood Pressure 113/60 128/64 124/59 O2 Sat by Pulse 100 100 100 Oximetry O2 Sat by Pulse Oximetry [ Assessment] 03/12/17 03/12/17 03/12/17 07:30 08:00 08:22 Temperature 97.5 F L Pulse Rate 83 87 83 Pulse Rate [ 87 From Monitor] Pulse Rate [ Throughout] Respiratory 14 28 H Rate Respiratory Rate [ Throughout] Blood Pressure 104/48 113/56 113/60 O2 Sat by Pulse 100 100 100 Oximetry O2 Sat by Pulse Oximetry [ Assessment] 03/12/17 03/12/17 08:24 08:39 Temperature Pulse Rate Pulse Rate [ From Monitor] Pulse Rate [ 90 94 H Throughout] Respiratory Rate Respiratory 17 14 Rate [ Throughout] Blood Pressure O2 Sat by Pulse Oximetry O2 Sat by Pulse Oximetry [ Assessment] Constitutional: appears uncomfortable, other (not tracking) Eyes: non-icteric, other (tracheostomy tube in midline of neck) ENT: oropharynx moist, oropharyngeal exudate pre, other (midline tracheostomy tube) Neck: supple, no lymphadenopathy, no JVD, other (no thyromegaly) Effort: mildly labored Ascultation: Bilateral: clear, diminished breath sounds (bases R>L), rales, rhonchi (and referred upper airway sounds) Percussion: Right: dull (base), Bilateral: not dull Cardiovascular: regular rate and rhythm, other (no rubs / murmurs) Gastrointestinal: hypoactive bowel sounds, soft, non-tender, non-distended, other (RLQ & LUQ stomas with colostomy bags) Integumentary: decubitus ulcer (sacral; stage 4 s/p surgical debridement), other (no rash; no cellulitis; poor turgor) Extremities: no cyanosis, pulses normal, no ischemia or petechiae, edema (1+ bilaterally) Neurologic: pupils equal and round, unable to assess, other (encephalopathic) Psychiatric: other (unable to assess) CBC and BMP: 03/27/17 05:30 04/01/17 07:15 ABG, PT/INR, D-dimer: ABG POC ABG pH 7.518 (7.35-7.45) H 03/03/17 20: ABG pH 7.450 pH Units (7.350-7.450) 12/05/16 Unknown POC ABG pCO2 28.8 (35-45) L 03/03/17 20:17 ABG pCO2 29.6 mm Hg 12/05/16 Unknown POC ABG pO2 61 (80-105) L 03/03/17 20: ABG pO2 75.2 mm Hg (80.0-90.0) L 12/05/16 Unknown POC ABG HCO3 23.4 03/03/17 20:17 POC ABG Total CO2 24 03/03/17 20:17 POC ABG O2 Sat 94 03/03/17 20:17 ABG O2 Saturation 96.8 % (95.0-99.0) 12/05/16 Unknown PT/INR, D-dimer PT 15.4 Sec. (12.2-14.9) H 01/13/17 15:50 INR 1.16 (0.87-1.13) H 01/13/17 15:50 Abnormal lab findings: Abnormal Labs 09/03/16 09/03/16 09/03/16 00:03 00:10 00:10 WBC 13.9 H RBC 5.95 H Hgb Hct 44.0 H MCV 74 L MCH 22 L MCHC RDW 17.5 H Plt Count Lymph % (Auto) [place] % (Auto) Lymph # [place] # Baso # Seg Neutrophils % Seg Neuts % (Manual) Lymphocytes % (Manual) 54.0 H Monocytes % (Manual) Eosinophils % (Manual) Basophils % (Manual) Nucleated RBC % Seg Neutrophils # Seg Neutrophils # Man Lymphocytes # (Manual) 7.5 H Monocytes # (Manual) Eosinophils # (Manual) Basophils # (Manual) PT INR Fibrinogen dRVVT Confirm Interp Factor V Activity POC ABG pH POC ABG pCO2 POC ABG pO2 ABG pO2 ABG HCO3 ABG Base Excess ABG Hemoglobin Oxyhemoglobin Sodium Potassium 2.8 L* Chloride Carbon Dioxide 21 L BUN Creatinine 1.7 H Glucose 159 H POC Glucose 177 H Lactic Acid Calcium Ionized Calcium Phosphorus Magnesium Direct Bilirubin AST ALT Alkaline Phosphatase Lactate Dehydrogenase Troponin T C-Reactive Protein Total Protein Albumin Prealbumin Triglycerides Cholesterol LDL Cholesterol Direct HDL Cholesterol 25-OH Vitamin D Total PTH Intact Urine pH Urine WBC (Auto) Urine Creatinine Urine Total Protein Fluid Total Protein Vancomycin Trough Rheumatoid Factor Complement C4 Miscellaneous Test Crossmatch 09/03/16 09/03/16 09/03/16 12:12 15:07 16:20 WBC RBC Hgb Hct MCV MCH MCHC RDW Plt Count Lymph % (Auto) [place] % (Auto) Lymph # [place] # Baso # Seg Neutrophils % Seg Neuts % (Manual) Lymphocytes % (Manual) Monocytes % (Manual) Eosinophils % (Manual) Basophils % (Manual) Nucleated RBC % Seg Neutrophils # Seg Neutrophils # Man Lymphocytes # (Manual) Monocytes # (Manual) Eosinophils # (Manual) Basophils # (Manual) PT INR Fibrinogen dRVVT Confirm Interp Factor V Activity POC ABG pH 7.452 H POC ABG pCO2 POC ABG pO2 ABG pO2 ABG HCO3 ABG Base Excess ABG Hemoglobin Oxyhemoglobin Sodium Potassium Chloride Carbon Dioxide BUN Creatinine Glucose POC Glucose 178 H Lactic Acid Calcium Ionized Calcium Phosphorus 2.20 L Magnesium 1.60 L Direct Bilirubin AST ALT Alkaline Phosphatase Lactate Dehydrogenase Troponin T C-Reactive Protein Total Protein Albumin Prealbumin Triglycerides Cholesterol LDL Cholesterol Direct HDL Cholesterol 25-OH Vitamin D Total PTH Intact Urine pH Urine WBC (Auto) Urine Creatinine Urine Total Protein Fluid Total Protein Vancomycin Trough Rheumatoid Factor Complement C4 Miscellaneous Test Crossmatch 09/03/16 09/03/16 09/03/16 17:57 17:58 23:50 WBC RBC Hgb Hct MCV MCH MCHC RDW Plt Count Lymph % (Auto) [place] % (Auto) Lymph # [place] # Baso # Seg Neutrophils % Seg Neuts % (Manual) Lymphocytes % (Manual) Monocytes % (Manual) Eosinophils % (Manual) Basophils % (Manual) Nucleated RBC % Seg Neutrophils # Seg Neutrophils # Man Lymphocytes # (Manual) Monocytes # (Manual) Eosinophils # (Manual) Basophils # (Manual) PT INR Fibrinogen dRVVT Confirm Interp Factor V Activity POC ABG pH POC ABG pCO2 POC ABG pO2 ABG pO2 ABG HCO3 ABG Base Excess ABG Hemoglobin Oxyhemoglobin Sodium Potassium Chloride Carbon Dioxide BUN Creatinine Glucose POC Glucose 162 H 145 H Lactic Acid Calcium Ionized Calcium Phosphorus 2.30 L Magnesium Direct Bilirubin AST ALT Alkaline Phosphatase Lactate Dehydrogenase Troponin T C-Reactive Protein Total Protein Albumin Prealbumin Triglycerides Cholesterol LDL Cholesterol Direct HDL Cholesterol 25-OH Vitamin D Total PTH Intact Urine pH Urine WBC (Auto) Urine Creatinine Urine Total Protein Fluid Total Protein Vancomycin Trough Rheumatoid Factor Complement C4 Miscellaneous Test Crossmatch 09/04/16 09/04/16 09/04/16 03:31 03:31 05:42 WBC RBC Hgb 9.7 L D Hct MCV 72 L MCH 23 L MCHC RDW 17.5 H Plt Count Lymph % (Auto) 11.1 L [place] % (Auto) Lymph # [place] # Baso # Seg Neutrophils % 84.3 H Seg Neuts % (Manual) Lymphocytes % (Manual) Monocytes % (Manual) Eosinophils % (Manual) Basophils % (Manual) Nucleated RBC % Seg Neutrophils # 8.9 H Seg Neutrophils # Man Lymphocytes # (Manual) Monocytes # (Manual) Eosinophils # (Manual) Basophils # (Manual) PT INR Fibrinogen dRVVT Confirm Interp Factor V Activity POC ABG pH POC ABG pCO2 POC ABG pO2 ABG pO2 ABG HCO3 ABG Base Excess ABG Hemoglobin Oxyhemoglobin Sodium 135 L Potassium 2.9 L* Chloride 97.2 L Carbon Dioxide 19 L BUN Creatinine 1.7 H Glucose 170 H POC Glucose 152 H Lactic Acid Calcium Ionized Calcium Phosphorus Magnesium Direct Bilirubin AST ALT Alkaline Phosphatase Lactate Dehydrogenase Troponin T C-Reactive Protein Total Protein Albumin Prealbumin Triglycerides 160 H Cholesterol LDL Cholesterol Direct HDL Cholesterol 31 L 25-OH Vitamin D Total PTH Intact Urine pH Urine WBC (Auto) Urine Creatinine Urine Total Protein Fluid Total Protein Vancomycin Trough Rheumatoid Factor Complement C4 Miscellaneous Test Crossmatch 09/04/16 09/04/16 09/04/16 11:34 17:46 23:29 WBC RBC Hgb Hct MCV MCH MCHC RDW Plt Count Lymph % (Auto) [place] % (Auto) Lymph # [place] # Baso # Seg Neutrophils % Seg Neuts % (Manual) Lymphocytes % (Manual) Monocytes % (Manual) Eosinophils % (Manual) Basophils % (Manual) Nucleated RBC % Seg Neutrophils # Seg Neutrophils # Man Lymphocytes # (Manual) Monocytes # (Manual) Eosinophils # (Manual) Basophils # (Manual) PT INR Fibrinogen dRVVT Confirm Interp Factor V Activity POC ABG pH POC ABG pCO2 POC ABG pO2 ABG pO2 ABG HCO3 ABG Base Excess ABG Hemoglobin Oxyhemoglobin Sodium Potassium Chloride Carbon Dioxide BUN Creatinine Glucose POC Glucose 165 H 210 H 139 H Lactic Acid Calcium Ionized Calcium Phosphorus Magnesium Direct Bilirubin AST ALT Alkaline Phosphatase Lactate Dehydrogenase Troponin T C-Reactive Protein Total Protein Albumin Prealbumin Triglycerides Cholesterol LDL Cholesterol Direct HDL Cholesterol 25-OH Vitamin D Total PTH Intact Urine pH Urine WBC (Auto) Urine Creatinine Urine Total Protein Fluid Total Protein Vancomycin Trough Rheumatoid Factor Complement C4 Miscellaneous Test Crossmatch 09/05/16 09/05/16 09/05/16 04:05 04:05 05:38 WBC RBC Hgb Hct MCV 76 L D MCH 23 L MCHC RDW 17.8 H Plt Count Lymph % (Auto) [place] % (Auto) Lymph # [place] # Baso # Seg Neutrophils % Seg Neuts % (Manual) Lymphocytes % (Manual) Monocytes % (Manual) Eosinophils % (Manual) Basophils % (Manual) Nucleated RBC % Seg Neutrophils # Seg Neutrophils # Man Lymphocytes # (Manual) Monocytes # (Manual) Eosinophils # (Manual) Basophils # (Manual) PT INR Fibrinogen dRVVT Confirm Interp Factor V Activity POC ABG pH POC ABG pCO2 POC ABG pO2 ABG pO2 ABG HCO3 ABG Base Excess ABG Hemoglobin Oxyhemoglobin Sodium 134 L Potassium Chloride Carbon Dioxide 18 L BUN Creatinine 1.8 H Glucose 192 H POC Glucose 175 H Lactic Acid Calcium Ionized Calcium Phosphorus Magnesium Direct Bilirubin AST ALT Alkaline Phosphatase Lactate Dehydrogenase Troponin T C-Reactive Protein Total Protein Albumin Prealbumin Triglycerides Cholesterol LDL Cholesterol Direct HDL Cholesterol 25-OH Vitamin D Total PTH Intact Urine pH Urine WBC (Auto) Urine Creatinine Urine Total Protein Fluid Total Protein Vancomycin Trough Rheumatoid Factor Complement C4 Miscellaneous Test Crossmatch 09/05/16 09/05/16 09/05/16 11:38 17:48 23:22 WBC RBC Hgb Hct MCV MCH MCHC RDW Plt Count Lymph % (Auto) [place] % (Auto) Lymph # [place] # Baso # Seg Neutrophils % Seg Neuts % (Manual) Lymphocytes % (Manual) Monocytes % (Manual) Eosinophils % (Manual) Basophils % (Manual) Nucleated RBC % Seg Neutrophils # Seg Neutrophils # Man Lymphocytes # (Manual) Monocytes # (Manual) Eosinophils # (Manual) Basophils # (Manual) PT INR Fibrinogen dRVVT Confirm Interp Factor V Activity POC ABG pH POC ABG pCO2 POC ABG pO2 ABG pO2 ABG HCO3 ABG Base Excess ABG Hemoglobin Oxyhemoglobin Sodium Potassium Chloride Carbon Dioxide BUN Creatinine Glucose POC Glucose 164 H 186 H 195 H Lactic Acid Calcium Ionized Calcium Phosphorus Magnesium Direct Bilirubin AST ALT Alkaline Phosphatase Lactate Dehydrogenase Troponin T C-Reactive Protein Total Protein Albumin Prealbumin Triglycerides Cholesterol LDL Cholesterol Direct HDL Cholesterol 25-OH Vitamin D Total PTH Intact Urine pH Urine WBC (Auto) Urine Creatinine Urine Total Protein Fluid Total Protein Vancomycin Trough Rheumatoid Factor Complement C4 Miscellaneous Test Crossmatch 09/06/16 09/06/16 09/06/16 04:12 05:59 07:32 WBC RBC Hgb Hct MCV MCH MCHC RDW Plt Count Lymph % (Auto) [place] % (Auto) Lymph # [place] # Baso # Seg Neutrophils % Seg Neuts % (Manual) Lymphocytes % (Manual) Monocytes % (Manual) Eosinophils % (Manual) Basophils % (Manual) Nucleated RBC % Seg Neutrophils # Seg Neutrophils # Man Lymphocytes # (Manual) Monocytes # (Manual) Eosinophils # (Manual) Basophils # (Manual) PT INR Fibrinogen dRVVT Confirm Interp Factor V Activity POC ABG pH 7.514 H POC ABG pCO2 29.1 L POC ABG pO2 72 L ABG pO2 ABG HCO3 ABG Base Excess ABG Hemoglobin Oxyhemoglobin Sodium 133 L Potassium 3.4 L Chloride 94.9 L Carbon Dioxide 19 L BUN 30 H Creatinine 2.1 H Glucose 139 H POC Glucose 146 H Lactic Acid Calcium Ionized Calcium Phosphorus Magnesium Direct Bilirubin AST ALT Alkaline Phosphatase Lactate Dehydrogenase Troponin T C-Reactive Protein Total Protein Albumin Prealbumin Triglycerides Cholesterol LDL Cholesterol Direct HDL Cholesterol 25-OH Vitamin D Total PTH Intact Urine pH Urine WBC (Auto) Urine Creatinine Urine Total Protein Fluid Total Protein Vancomycin Trough Rheumatoid Factor Complement C4 Miscellaneous Test Crossmatch 09/06/16 09/06/16 09/06/16 11:57 17:58 19:02 WBC RBC Hgb Hct MCV MCH MCHC RDW Plt Count Lymph % (Auto) [place] % (Auto) Lymph # [place] # Baso # Seg Neutrophils % Seg Neuts % (Manual) Lymphocytes % (Manual) Monocytes % (Manual) Eosinophils % (Manual) Basophils % (Manual) Nucleated RBC % Seg Neutrophils # Seg Neutrophils # Man Lymphocytes # (Manual) Monocytes # (Manual) Eosinophils # (Manual) Basophils # (Manual) PT INR Fibrinogen dRVVT Confirm Interp Factor V Activity POC ABG pH 7.465 H POC ABG pCO2 32.0 L POC ABG pO2 ABG pO2 ABG HCO3 ABG Base Excess ABG Hemoglobin Oxyhemoglobin Sodium Potassium Chloride Carbon Dioxide BUN Creatinine Glucose POC Glucose 165 H 160 H Lactic Acid Calcium Ionized Calcium Phosphorus Magnesium Direct Bilirubin AST ALT Alkaline Phosphatase Lactate Dehydrogenase Troponin T C-Reactive Protein Total Protein Albumin Prealbumin Triglycerides Cholesterol LDL Cholesterol Direct HDL Cholesterol 25-OH Vitamin D Total PTH Intact Urine pH Urine WBC (Auto) Urine Creatinine Urine Total Protein Fluid Total Protein Vancomycin Trough Rheumatoid Factor Complement C4 Miscellaneous Test Crossmatch 09/06/16 09/07/16 09/07/16 23:45 02:47 02:47 WBC RBC Hgb Hct MCV MCH MCHC RDW Plt Count Lymph % (Auto) [place] % (Auto) Lymph # [place] # Baso # Seg Neutrophils % Seg Neuts % (Manual) Lymphocytes % (Manual) Monocytes % (Manual) Eosinophils % (Manual) Basophils % (Manual) Nucleated RBC % Seg Neutrophils # Seg Neutrophils # Man Lymphocytes # (Manual) Monocytes # (Manual) Eosinophils # (Manual) Basophils # (Manual) PT INR Fibrinogen dRVVT Confirm Interp Factor V Activity POC ABG pH POC ABG pCO2 POC ABG pO2 ABG pO2 ABG HCO3 ABG Base Excess ABG Hemoglobin Oxyhemoglobin Sodium Potassium Chloride Carbon Dioxide BUN Creatinine Glucose POC Glucose 204 H Lactic Acid Calcium Ionized Calcium Phosphorus Magnesium Direct Bilirubin AST ALT Alkaline Phosphatase Lactate Dehydrogenase Troponin T C-Reactive Protein Total Protein Albumin Prealbumin Triglycerides Cholesterol LDL Cholesterol Direct HDL Cholesterol 25-OH Vitamin D Total PTH Intact Urine pH Urine WBC (Auto) 68.0 H Urine Creatinine 106.1 H Urine Total Protein Fluid Total Protein Vancomycin Trough Rheumatoid Factor Complement C4 Miscellaneous Test Crossmatch 09/07/16 09/07/16 09/07/16 04:50 06:19 06:39 WBC RBC Hgb Hct MCV MCH MCHC RDW Plt Count Lymph % (Auto) [place] % (Auto) Lymph # [place] # Baso # Seg Neutrophils % Seg Neuts % (Manual) Lymphocytes % (Manual) Monocytes % (Manual) Eosinophils % (Manual) Basophils % (Manual) Nucleated RBC % Seg Neutrophils # Seg Neutrophils # Man Lymphocytes # (Manual) Monocytes # (Manual) Eosinophils # (Manual) Basophils # (Manual) PT INR Fibrinogen dRVVT Confirm Interp Factor V Activity POC ABG pH 7.457 H POC ABG pCO2 32.1 L POC ABG pO2 76 L ABG pO2 ABG HCO3 ABG Base Excess ABG Hemoglobin Oxyhemoglobin Sodium 132 L Potassium Chloride 94.7 L Carbon Dioxide BUN 53 H Creatinine 2.9 H Glucose 151 H POC Glucose 149 H Lactic Acid Calcium Ionized Calcium Phosphorus Magnesium Direct Bilirubin AST ALT Alkaline Phosphatase Lactate Dehydrogenase Troponin T C-Reactive Protein Total Protein Albumin Prealbumin Triglycerides Cholesterol LDL Cholesterol Direct HDL Cholesterol 25-OH Vitamin D Total PTH Intact Urine pH Urine WBC (Auto) Urine Creatinine Urine Total Protein Fluid Total Protein Vancomycin Trough Rheumatoid Factor Complement C4 Miscellaneous Test Crossmatch 09/07/16 09/07/16 09/07/16 09:20 11:43 11:43 WBC 19.4 H RBC Hgb 8.3 L Hct 26.4 L D MCV 72 L D MCH 22 L MCHC RDW 17.9 H Plt Count Lymph % (Auto) 8.5 L [place] % (Auto) Lymph # [place] # 1.0 H Baso # Seg Neutrophils % 85.8 H Seg Neuts % (Manual) Lymphocytes % (Manual) Monocytes % (Manual) Eosinophils % (Manual) Basophils % (Manual) Nucleated RBC % Seg Neutrophils # 16.6 H Seg Neutrophils # Man Lymphocytes # (Manual) Monocytes # (Manual) Eosinophils # (Manual) Basophils # (Manual) PT INR Fibrinogen dRVVT Confirm Interp Factor V Activity POC ABG pH POC ABG pCO2 POC ABG pO2 ABG pO2 ABG HCO3 ABG Base Excess ABG Hemoglobin Oxyhemoglobin Sodium 134 L Potassium Chloride 97.2 L Carbon Dioxide 20 L BUN 58 H Creatinine 2.9 H Glucose 147 H POC Glucose Lactic Acid Calcium Ionized Calcium Phosphorus 2.40 L Magnesium 2.40 H Direct Bilirubin AST ALT Alkaline Phosphatase Lactate Dehydrogenase Troponin T C-Reactive Protein Total Protein 5.8 L Albumin 2.2 L Prealbumin Triglycerides Cholesterol LDL Cholesterol Direct HDL Cholesterol 25-OH Vitamin D Total PTH Intact Urine pH Urine WBC (Auto) Urine Creatinine Urine Total Protein Fluid Total Protein Vancomycin Trough Rheumatoid Factor Complement C4 58 H Miscellaneous Test Crossmatch 09/07/16 09/07/16 09/07/16 11:50 16:00 17:31 WBC RBC Hgb Hct MCV MCH MCHC RDW Plt Count Lymph % (Auto) [place] % (Auto) Lymph # [place] # Baso # Seg Neutrophils % Seg Neuts % (Manual) Lymphocytes % (Manual) Monocytes % (Manual) Eosinophils % (Manual) Basophils % (Manual) Nucleated RBC % Seg Neutrophils # Seg Neutrophils # Man Lymphocytes # (Manual) Monocytes # (Manual) Eosinophils # (Manual) Basophils # (Manual) PT INR Fibrinogen dRVVT Confirm Interp Factor V Activity POC ABG pH POC ABG pCO2 POC ABG pO2 158 H ABG pO2 ABG HCO3 ABG Base Excess ABG Hemoglobin Oxyhemoglobin Sodium Potassium Chloride Carbon Dioxide BUN Creatinine Glucose POC Glucose 175 H Lactic Acid Calcium Ionized Calcium Phosphorus Magnesium Direct Bilirubin AST ALT Alkaline Phosphatase Lactate Dehydrogenase Troponin T C-Reactive Protein Total Protein Albumin Prealbumin Triglycerides Cholesterol LDL Cholesterol Direct HDL Cholesterol 25-OH Vitamin D Total PTH Intact Urine pH Urine WBC (Auto) Urine Creatinine 66.3 H Urine Total Protein Fluid Total Protein Vancomycin Trough Rheumatoid Factor Complement C4 Miscellaneous Test Crossmatch 09/07/16 09/08/16 09/08/16 23:50 05:46 06:18 WBC 17.8 H RBC 3.58 L Hgb 8.1 L Hct 25.5 L MCV 71 L MCH 23 L MCHC RDW 18.4 H Plt Count Lymph % (Auto) [place] % (Auto) Lymph # [place] # Baso # Seg Neutrophils % Seg Neuts % (Manual) 92.0 H Lymphocytes % (Manual) 6.0 L Monocytes % (Manual) Eosinophils % (Manual) Basophils % (Manual) Nucleated RBC % Seg Neutrophils # Seg Neutrophils # Man 16.4 H Lymphocytes # (Manual) 1.1 L Monocytes # (Manual) Eosinophils # (Manual) Basophils # (Manual) PT INR Fibrinogen dRVVT Confirm Interp Factor V Activity POC ABG pH POC ABG pCO2 34.3 L POC ABG pO2 71 L ABG pO2 ABG HCO3 ABG Base Excess ABG Hemoglobin Oxyhemoglobin Sodium Potassium Chloride Carbon Dioxide BUN Creatinine Glucose POC Glucose 216 H Lactic Acid Calcium Ionized Calcium Phosphorus Magnesium Direct Bilirubin AST ALT Alkaline Phosphatase Lactate Dehydrogenase Troponin T C-Reactive Protein Total Protein Albumin Prealbumin Triglycerides Cholesterol LDL Cholesterol Direct HDL Cholesterol 25-OH Vitamin D Total PTH Intact Urine pH Urine WBC (Auto) Urine Creatinine Urine Total Protein Fluid Total Protein Vancomycin Trough Rheumatoid Factor Complement C4 Miscellaneous Test Crossmatch 09/08/16 09/08/16 09/08/16 06:18 06:51 10:55 WBC RBC Hgb Hct MCV MCH MCHC RDW Plt Count Lymph % (Auto) [place] % (Auto) Lymph # [place] # Baso # Seg Neutrophils % Seg Neuts % (Manual) Lymphocytes % (Manual) Monocytes % (Manual) Eosinophils % (Manual) Basophils % (Manual) Nucleated RBC % Seg Neutrophils # Seg Neutrophils # Man Lymphocytes # (Manual) Monocytes # (Manual) Eosinophils # (Manual) Basophils # (Manual) PT INR Fibrinogen dRVVT Confirm Interp Factor V Activity POC ABG pH POC ABG pCO2 POC ABG pO2 ABG pO2 ABG HCO3 ABG Base Excess ABG Hemoglobin Oxyhemoglobin Sodium 133 L Potassium Chloride 96.9 L Carbon Dioxide 20 L BUN 63 H Creatinine 2.7 H Glucose 195 H POC Glucose 204 H 169 H Lactic Acid Calcium Ionized Calcium Phosphorus Magnesium Direct Bilirubin AST ALT Alkaline Phosphatase Lactate Dehydrogenase Troponin T C-Reactive Protein Total Protein Albumin Prealbumin Triglycerides Cholesterol LDL Cholesterol Direct HDL Cholesterol 25-OH Vitamin D Total PTH Intact Urine pH Urine WBC (Auto) Urine Creatinine Urine Total Protein Fluid Total Protein Vancomycin Trough Rheumatoid Factor Complement C4 Miscellaneous Test Crossmatch 09/08/16 09/08/16 09/08/16 11:48 11:48 11:48 WBC RBC Hgb Hct MCV MCH MCHC RDW Plt Count Lymph % (Auto) [place] % (Auto) Lymph # [place] # Baso # Seg Neutrophils % Seg Neuts % (Manual) Lymphocytes % (Manual) Monocytes % (Manual) Eosinophils % (Manual) Basophils % (Manual) Nucleated RBC % Seg Neutrophils # Seg Neutrophils # Man Lymphocytes # (Manual) Monocytes # (Manual) Eosinophils # (Manual) Basophils # (Manual) PT INR Fibrinogen 750 H dRVVT Confirm Interp Factor V Activity POC ABG pH POC ABG pCO2 POC ABG pO2 ABG pO2 ABG HCO3 ABG Base Excess ABG Hemoglobin Oxyhemoglobin Sodium Potassium Chloride Carbon Dioxide BUN Creatinine Glucose POC Glucose Lactic Acid Calcium Ionized Calcium Phosphorus Magnesium Direct Bilirubin AST ALT Alkaline Phosphatase Lactate Dehydrogenase Troponin T C-Reactive Protein 15.70 H Total Protein Albumin Prealbumin Triglycerides Cholesterol LDL Cholesterol Direct HDL Cholesterol 25-OH Vitamin D Total PTH Intact Urine pH Urine WBC (Auto) Urine Creatinine Urine Total Protein Fluid Total Protein Vancomycin Trough Rheumatoid Factor 24 H Complement C4 Miscellaneous Test Crossmatch 09/08/16 09/08/16 09/09/16 15:35 18:25 00:24 WBC RBC Hgb Hct MCV MCH MCHC RDW Plt Count Lymph % (Auto) [place] % (Auto) Lymph # [place] # Baso # Seg Neutrophils % Seg Neuts % (Manual) Lymphocytes % (Manual) Monocytes % (Manual) Eosinophils % (Manual) Basophils % (Manual) Nucleated RBC % Seg Neutrophils # Seg Neutrophils # Man Lymphocytes # (Manual) Monocytes # (Manual) Eosinophils # (Manual) Basophils # (Manual) PT INR Fibrinogen dRVVT Confirm Interp Factor V Activity 182 H POC ABG pH POC ABG pCO2 POC ABG pO2 ABG pO2 ABG HCO3 ABG Base Excess ABG Hemoglobin Oxyhemoglobin Sodium Potassium Chloride Carbon Dioxide BUN Creatinine Glucose POC Glucose 184 H 216 H Lactic Acid Calcium Ionized Calcium Phosphorus Magnesium Direct Bilirubin AST ALT Alkaline Phosphatase Lactate Dehydrogenase Troponin T C-Reactive Protein Total Protein Albumin Prealbumin Triglycerides Cholesterol LDL Cholesterol Direct HDL Cholesterol 25-OH Vitamin D Total PTH Intact Urine pH Urine WBC (Auto) Urine Creatinine Urine Total Protein Fluid Total Protein Vancomycin Trough Rheumatoid Factor Complement C4 Miscellaneous Test Crossmatch 09/09/16 09/09/16 09/09/16 03:00 03:00 04:04 WBC 27.9 H RBC Hgb 8.7 L Hct 28.1 L MCV 72 L MCH 22 L MCHC RDW 18.4 H Plt Count 485 H Lymph % (Auto) [place] % (Auto) Lymph # [place] # Baso # Seg Neutrophils % Seg Neuts % (Manual) 77.0 H Lymphocytes % (Manual) 9.0 L Monocytes % (Manual) Eosinophils % (Manual) Basophils % (Manual) Nucleated RBC % Seg Neutrophils # Seg Neutrophils # Man 21.5 H Lymphocytes # (Manual) Monocytes # (Manual) 2.0 H Eosinophils # (Manual) Basophils # (Manual) PT INR Fibrinogen dRVVT Confirm Interp Factor V Activity POC ABG pH POC ABG pCO2 POC ABG pO2 121 H ABG pO2 ABG HCO3 ABG Base Excess ABG Hemoglobin Oxyhemoglobin Sodium 135 L Potassium Chloride 96.3 L Carbon Dioxide 21 L BUN 83 H Creatinine 3.0 H Glucose 135 H POC Glucose Lactic Acid Calcium Ionized Calcium Phosphorus Magnesium Direct Bilirubin AST ALT Alkaline Phosphatase Lactate Dehydrogenase Troponin T C-Reactive Protein Total Protein Albumin Prealbumin Triglycerides Cholesterol LDL Cholesterol Direct HDL Cholesterol 25-OH Vitamin D Total PTH Intact Urine pH Urine WBC (Auto) Urine Creatinine Urine Total Protein Fluid Total Protein Vancomycin Trough Rheumatoid Factor Complement C4 Miscellaneous Test Crossmatch 09/09/16 09/09/16 09/09/16 05:41 11:55 14:13 WBC RBC Hgb Hct MCV MCH MCHC RDW Plt Count Lymph % (Auto) [place] % (Auto) Lymph # [place] # Baso # Seg Neutrophils % Seg Neuts % (Manual) Lymphocytes % (Manual) Monocytes % (Manual) Eosinophils % (Manual) Basophils % (Manual) Nucleated RBC % Seg Neutrophils # Seg Neutrophils # Man Lymphocytes # (Manual) Monocytes # (Manual) Eosinophils # (Manual) Basophils # (Manual) PT INR Fibrinogen dRVVT Confirm Interp Factor V Activity POC ABG pH POC ABG pCO2 POC ABG pO2 ABG pO2 ABG HCO3 ABG Base Excess ABG Hemoglobin Oxyhemoglobin Sodium Potassium Chloride Carbon Dioxide BUN Creatinine Glucose POC Glucose 155 H 186 H Lactic Acid Calcium Ionized Calcium Phosphorus Magnesium Direct Bilirubin AST ALT Alkaline Phosphatase Lactate Dehydrogenase Troponin T C-Reactive Protein Total Protein Albumin Prealbumin Triglycerides Cholesterol LDL Cholesterol Direct HDL Cholesterol 25-OH Vitamin D Total PTH Intact Urine pH Urine WBC (Auto) 25.0 H Urine Creatinine Urine Total Protein Fluid Total Protein Vancomycin Trough Rheumatoid Factor Complement C4 Miscellaneous Test Crossmatch 09/09/16 09/09/16 09/10/16 17:33 23:13 05:09 WBC RBC Hgb Hct MCV MCH MCHC RDW Plt Count Lymph % (Auto) [place] % (Auto) Lymph # [place] # Baso # Seg Neutrophils % Seg Neuts % (Manual) Lymphocytes % (Manual) Monocytes % (Manual) Eosinophils % (Manual) Basophils % (Manual) Nucleated RBC % Seg Neutrophils # Seg Neutrophils # Man Lymphocytes # (Manual) Monocytes # (Manual) Eosinophils # (Manual) Basophils # (Manual) PT INR Fibrinogen dRVVT Confirm Interp Factor V Activity POC ABG pH POC ABG pCO2 POC ABG pO2 74 L ABG pO2 ABG HCO3 ABG Base Excess ABG Hemoglobin Oxyhemoglobin Sodium Potassium Chloride Carbon Dioxide BUN Creatinine Glucose POC Glucose 211 H 215 H Lactic Acid Calcium Ionized Calcium Phosphorus Magnesium Direct Bilirubin AST ALT Alkaline Phosphatase Lactate Dehydrogenase Troponin T C-Reactive Protein Total Protein Albumin Prealbumin Triglycerides Cholesterol LDL Cholesterol Direct HDL Cholesterol 25-OH Vitamin D Total PTH Intact Urine pH Urine WBC (Auto) Urine Creatinine Urine Total Protein Fluid Total Protein Vancomycin Trough Rheumatoid Factor Complement C4 Miscellaneous Test Crossmatch 09/10/16 09/10/16 09/10/16 05:17 05:17 11:31 WBC 15.8 H RBC 3.25 L Hgb 7.3 L Hct 22.9 L MCV 71 L MCH 23 L MCHC RDW 18.4 H Plt Count Lymph % (Auto) [place] % (Auto) Lymph # [place] # Baso # Seg Neutrophils % Seg Neuts % (Manual) 91.0 H Lymphocytes % (Manual) 4.0 L Monocytes % (Manual) Eosinophils % (Manual) Basophils % (Manual) Nucleated RBC % Seg Neutrophils # Seg Neutrophils # Man 14.4 H Lymphocytes # (Manual) 0.6 L Monocytes # (Manual) Eosinophils # (Manual) Basophils # (Manual) PT INR Fibrinogen dRVVT Confirm Interp Factor V Activity POC ABG pH POC ABG pCO2 POC ABG pO2 ABG pO2 ABG HCO3 ABG Base Excess ABG Hemoglobin Oxyhemoglobin Sodium Potassium Chloride Carbon Dioxide 21 L BUN 93 H Creatinine 2.9 H Glucose 146 H POC Glucose 188 H Lactic Acid Calcium 8.1 L Ionized Calcium Phosphorus Magnesium Direct Bilirubin AST ALT Alkaline Phosphatase Lactate Dehydrogenase Troponin T C-Reactive Protein Total Protein Albumin Prealbumin Triglycerides Cholesterol LDL Cholesterol Direct HDL Cholesterol 25-OH Vitamin D Total PTH Intact Urine pH Urine WBC (Auto) Urine Creatinine Urine Total Protein Fluid Total Protein Vancomycin Trough Rheumatoid Factor Complement C4 Miscellaneous Test Crossmatch 09/10/16 09/10/16 09/10/16 13:17 17:20 23:32 WBC RBC Hgb Hct MCV MCH MCHC RDW Plt Count Lymph % (Auto) [place] % (Auto) Lymph # [place] # Baso # Seg Neutrophils % Seg Neuts % (Manual) Lymphocytes % (Manual) Monocytes % (Manual) Eosinophils % (Manual) Basophils % (Manual) Nucleated RBC % Seg Neutrophils # Seg Neutrophils # Man Lymphocytes # (Manual) Monocytes # (Manual) Eosinophils # (Manual) Basophils # (Manual) PT INR Fibrinogen dRVVT Confirm Interp Factor V Activity POC ABG pH POC ABG pCO2 POC ABG pO2 ABG pO2 ABG HCO3 ABG Base Excess ABG Hemoglobin Oxyhemoglobin Sodium Potassium Chloride Carbon Dioxide BUN Creatinine Glucose POC Glucose 199 H 186 H Lactic Acid Calcium Ionized Calcium Phosphorus Magnesium Direct Bilirubin AST ALT Alkaline Phosphatase Lactate Dehydrogenase Troponin T C-Reactive Protein Total Protein Albumin Prealbumin Triglycerides Cholesterol LDL Cholesterol Direct HDL Cholesterol 25-OH Vitamin D Total PTH Intact Urine pH Urine WBC (Auto) Urine Creatinine Urine Total Protein Fluid Total Protein Vancomycin Trough Rheumatoid Factor Complement C4 Miscellaneous Test Crossmatch See Detail 09/11/16 09/11/16 09/11/16 05:10 05:10 05:17 WBC 28.4 H RBC Hgb 9.2 L Hct 29.3 L D MCV 73 L MCH 23 L MCHC RDW 18.9 H Plt Count 452 H Lymph % (Auto) [place] % (Auto) Lymph # [place] # Baso # Seg Neutrophils % Seg Neuts % (Manual) 89.5 H Lymphocytes % (Manual) 2.0 L Monocytes % (Manual) Eosinophils % (Manual) Basophils % (Manual) Nucleated RBC % Seg Neutrophils # Seg Neutrophils # Man 25.4 H Lymphocytes # (Manual) 0.6 L Monocytes # (Manual) 1.3 H Eosinophils # (Manual) Basophils # (Manual) PT INR Fibrinogen dRVVT Confirm Interp Factor V Activity POC ABG pH POC ABG pCO2 POC ABG pO2 ABG pO2 ABG HCO3 ABG Base Excess ABG Hemoglobin Oxyhemoglobin Sodium 136 L Potassium Chloride Carbon Dioxide 18 L BUN 107 H Creatinine 2.6 H Glucose 187 H POC Glucose 230 H Lactic Acid Calcium 8.3 L Ionized Calcium Phosphorus Magnesium Direct Bilirubin AST ALT Alkaline Phosphatase Lactate Dehydrogenase Troponin T C-Reactive Protein Total Protein Albumin Prealbumin Triglycerides Cholesterol LDL Cholesterol Direct HDL Cholesterol 25-OH Vitamin D Total PTH Intact Urine pH Urine WBC (Auto) Urine Creatinine Urine Total Protein Fluid Total Protein Vancomycin Trough Rheumatoid Factor Complement C4 Miscellaneous Test Crossmatch 09/11/16 09/11/16 09/11/16 05:55 12:02 17:32 WBC RBC Hgb Hct MCV MCH MCHC RDW Plt Count Lymph % (Auto) [place] % (Auto) Lymph # [place] # Baso # Seg Neutrophils % Seg Neuts % (Manual) Lymphocytes % (Manual) Monocytes % (Manual) Eosinophils % (Manual) Basophils % (Manual) Nucleated RBC % Seg Neutrophils # Seg Neutrophils # Man Lymphocytes # (Manual) Monocytes # (Manual) Eosinophils # (Manual) Basophils # (Manual) PT INR Fibrinogen dRVVT Confirm Interp Factor V Activity POC ABG pH POC ABG pCO2 33.8 L POC ABG pO2 ABG pO2 ABG HCO3 ABG Base Excess ABG Hemoglobin Oxyhemoglobin Sodium Potassium Chloride Carbon Dioxide BUN Creatinine Glucose POC Glucose 191 H 239 H Lactic Acid Calcium Ionized Calcium Phosphorus Magnesium Direct Bilirubin AST ALT Alkaline Phosphatase Lactate Dehydrogenase Troponin T C-Reactive Protein Total Protein Albumin Prealbumin Triglycerides Cholesterol LDL Cholesterol Direct HDL Cholesterol 25-OH Vitamin D Total PTH Intact Urine pH Urine WBC (Auto) Urine Creatinine Urine Total Protein Fluid Total Protein Vancomycin Trough Rheumatoid Factor Complement C4 Miscellaneous Test Crossmatch 09/11/16 09/12/16 09/12/16 23:52 05:09 05:32 WBC RBC Hgb Hct MCV MCH MCHC RDW Plt Count Lymph % (Auto) [place] % (Auto) Lymph # [place] # Baso # Seg Neutrophils % Seg Neuts % (Manual) Lymphocytes % (Manual) Monocytes % (Manual) Eosinophils % (Manual) Basophils % (Manual) Nucleated RBC % Seg Neutrophils # Seg Neutrophils # Man Lymphocytes # (Manual) Monocytes # (Manual) Eosinophils # (Manual) Basophils # (Manual) PT INR Fibrinogen dRVVT Confirm Interp Factor V Activity POC ABG pH POC ABG pCO2 34.6 L POC ABG pO2 ABG pO2 ABG HCO3 ABG Base Excess ABG Hemoglobin Oxyhemoglobin Sodium Potassium Chloride Carbon Dioxide BUN Creatinine Glucose POC Glucose 265 H 184 H Lactic Acid Calcium Ionized Calcium Phosphorus Magnesium Direct Bilirubin AST ALT Alkaline Phosphatase Lactate Dehydrogenase Troponin T C-Reactive Protein Total Protein Albumin Prealbumin Triglycerides Cholesterol LDL Cholesterol Direct HDL Cholesterol 25-OH Vitamin D Total PTH Intact Urine pH Urine WBC (Auto) Urine Creatinine Urine Total Protein Fluid Total Protein Vancomycin Trough Rheumatoid Factor Complement C4 Miscellaneous Test Crossmatch 09/12/16 09/12/16 09/12/16 06:45 06:45 07:22 WBC 31.7 H RBC 3.54 L Hgb 8.3 L Hct 25.9 L MCV 73 L MCH 23 L MCHC RDW 18.9 H Plt Count Lymph % (Auto) [place] % (Auto) Lymph # [place] # Baso # Seg Neutrophils % Seg Neuts % (Manual) 88.5 H Lymphocytes % (Manual) 4.5 L Monocytes % (Manual) Eosinophils % (Manual) Basophils % (Manual) Nucleated RBC % Seg Neutrophils # Seg Neutrophils # Man 28.1 H Lymphocytes # (Manual) Monocytes # (Manual) 1.0 H Eosinophils # (Manual) Basophils # (Manual) PT INR Fibrinogen dRVVT Confirm Interp Factor V Activity POC ABG pH POC ABG pCO2 POC ABG pO2 ABG pO2 ABG HCO3 ABG Base Excess ABG Hemoglobin Oxyhemoglobin Sodium Potassium Chloride Carbon Dioxide 20 L BUN 115 H Creatinine 2.7 H Glucose 165 H POC Glucose Lactic Acid Calcium 8.0 L Ionized Calcium Phosphorus Magnesium Direct Bilirubin AST ALT Alkaline Phosphatase Lactate Dehydrogenase Troponin T C-Reactive Protein Total Protein Albumin Prealbumin Triglycerides 217 H Cholesterol LDL Cholesterol Direct HDL Cholesterol 25-OH Vitamin D Total PTH Intact Urine pH Urine WBC (Auto) Urine Creatinine Urine Total Protein Fluid Total Protein Vancomycin Trough Rheumatoid Factor Complement C4 Miscellaneous Test Crossmatch 09/12/16 09/12/16 09/12/16 07:22 09:59 12:21 WBC RBC Hgb Hct MCV MCH MCHC RDW Plt Count Lymph % (Auto) [place] % (Auto) Lymph # [place] # Baso # Seg Neutrophils % Seg Neuts % (Manual) Lymphocytes % (Manual) Monocytes % (Manual) Eosinophils % (Manual) Basophils % (Manual) Nucleated RBC % Seg Neutrophils # Seg Neutrophils # Man Lymphocytes # (Manual) Monocytes # (Manual) Eosinophils # (Manual) Basophils # (Manual) PT INR Fibrinogen dRVVT Confirm Interp Positive H Factor V Activity POC ABG pH POC ABG pCO2 POC ABG pO2 ABG pO2 ABG HCO3 ABG Base Excess ABG Hemoglobin Oxyhemoglobin Sodium Potassium Chloride Carbon Dioxide BUN Creatinine Glucose POC Glucose 224 H Lactic Acid Calcium Ionized Calcium Phosphorus Magnesium Direct Bilirubin AST ALT Alkaline Phosphatase Lactate Dehydrogenase Troponin T C-Reactive Protein 1.70 H Total Protein Albumin Prealbumin Triglycerides Cholesterol LDL Cholesterol Direct HDL Cholesterol 25-OH Vitamin D Total PTH Intact Urine pH Urine WBC (Auto) Urine Creatinine Urine Total Protein Fluid Total Protein Vancomycin Trough Rheumatoid Factor Complement C4 Miscellaneous Test Crossmatch 09/12/16 09/12/16 09/13/16 16:51 23:28 04:00 WBC 45.0 H* RBC Hgb 9.4 L Hct MCV 75 L MCH 23 L MCHC RDW 19.0 H Plt Count 470 H Lymph % (Auto) [place] % (Auto) Lymph # [place] # Baso # Seg Neutrophils % Seg Neuts % (Manual) 89.0 H Lymphocytes % (Manual) 5.0 L Monocytes % (Manual) Eosinophils % (Manual) Basophils % (Manual) Nucleated RBC % Seg Neutrophils # Seg Neutrophils # Man 40.1 H Lymphocytes # (Manual) Monocytes # (Manual) Eosinophils # (Manual) Basophils # (Manual) PT INR Fibrinogen dRVVT Confirm Interp Factor V Activity POC ABG pH POC ABG pCO2 POC ABG pO2 ABG pO2 ABG HCO3 ABG Base Excess ABG Hemoglobin Oxyhemoglobin Sodium Potassium Chloride Carbon Dioxide BUN Creatinine Glucose POC Glucose 169 H 150 H Lactic Acid Calcium Ionized Calcium Phosphorus Magnesium Direct Bilirubin AST ALT Alkaline Phosphatase Lactate Dehydrogenase Troponin T C-Reactive Protein Total Protein Albumin Prealbumin Triglycerides Cholesterol LDL Cholesterol Direct HDL Cholesterol 25-OH Vitamin D Total PTH Intact Urine pH Urine WBC (Auto) Urine Creatinine Urine Total Protein Fluid Total Protein Vancomycin Trough Rheumatoid Factor Complement C4 Miscellaneous Test Crossmatch 09/13/16 09/13/16 09/13/16 04:00 11:26 17:31 WBC RBC Hgb Hct MCV MCH MCHC RDW Plt Count Lymph % (Auto) [place] % (Auto) Lymph # [place] # Baso # Seg Neutrophils % Seg Neuts % (Manual) Lymphocytes % (Manual) Monocytes % (Manual) Eosinophils % (Manual) Basophils % (Manual) Nucleated RBC % Seg Neutrophils # Seg Neutrophils # Man Lymphocytes # (Manual) Monocytes # (Manual) Eosinophils # (Manual) Basophils # (Manual) PT INR Fibrinogen dRVVT Confirm Interp Factor V Activity POC ABG pH POC ABG pCO2 POC ABG pO2 ABG pO2 ABG HCO3 ABG Base Excess ABG Hemoglobin Oxyhemoglobin Sodium Potassium Chloride Carbon Dioxide 20 L BUN 116 H Creatinine 3.0 H Glucose 172 H POC Glucose 140 H 183 H Lactic Acid Calcium Ionized Calcium Phosphorus Magnesium Direct Bilirubin AST ALT Alkaline Phosphatase Lactate Dehydrogenase Troponin T C-Reactive Protein Total Protein 6.2 L Albumin 2.9 L Prealbumin Triglycerides Cholesterol LDL Cholesterol Direct HDL Cholesterol 25-OH Vitamin D Total PTH Intact Urine pH Urine WBC (Auto) Urine Creatinine Urine Total Protein Fluid Total Protein Vancomycin Trough Rheumatoid Factor Complement C4 Miscellaneous Test Crossmatch 09/13/16 09/14/16 09/14/16 23:23 04:06 04:07 WBC 29.4 H RBC Hgb 8.9 L Hct 27.3 L MCV 75 L MCH 24 L MCHC RDW 19.1 H Plt Count Lymph % (Auto) [place] % (Auto) Lymph # [place] # Baso # Seg Neutrophils % Seg Neuts % (Manual) 84.0 H Lymphocytes % (Manual) 6.0 L Monocytes % (Manual) 9.0 H Eosinophils % (Manual) Basophils % (Manual) Nucleated RBC % Seg Neutrophils # Seg Neutrophils # Man 24.7 H Lymphocytes # (Manual) Monocytes # (Manual) 2.6 H Eosinophils # (Manual) Basophils # (Manual) PT INR Fibrinogen dRVVT Confirm Interp Factor V Activity POC ABG pH 7.342 L POC ABG pCO2 POC ABG pO2 116 H ABG pO2 ABG HCO3 ABG Base Excess ABG Hemoglobin Oxyhemoglobin Sodium Potassium Chloride Carbon Dioxide BUN Creatinine Glucose POC Glucose 154 H Lactic Acid Calcium Ionized Calcium Phosphorus Magnesium Direct Bilirubin AST ALT Alkaline Phosphatase Lactate Dehydrogenase Troponin T C-Reactive Protein Total Protein Albumin Prealbumin Triglycerides Cholesterol LDL Cholesterol Direct HDL Cholesterol 25-OH Vitamin D Total PTH Intact Urine pH Urine WBC (Auto) Urine Creatinine Urine Total Protein Fluid Total Protein Vancomycin Trough Rheumatoid Factor Complement C4 Miscellaneous Test Crossmatch 09/14/16 09/14/16 09/14/16 04:07 05:29 12:19 WBC RBC Hgb Hct MCV MCH MCHC RDW Plt Count Lymph % (Auto) [place] % (Auto) Lymph # [place] # Baso # Seg Neutrophils % Seg Neuts % (Manual) Lymphocytes % (Manual) Monocytes % (Manual) Eosinophils % (Manual) Basophils % (Manual) Nucleated RBC % Seg Neutrophils # Seg Neutrophils # Man Lymphocytes # (Manual) Monocytes # (Manual) Eosinophils # (Manual) Basophils # (Manual) PT INR Fibrinogen dRVVT Confirm Interp Factor V Activity POC ABG pH POC ABG pCO2 POC ABG pO2 ABG pO2 ABG HCO3 ABG Base Excess ABG Hemoglobin Oxyhemoglobin Sodium 136 L Potassium Chloride Carbon Dioxide 18 L BUN 121 H Creatinine 2.8 H Glucose 214 H POC Glucose 239 H 181 H Lactic Acid Calcium Ionized Calcium Phosphorus Magnesium Direct Bilirubin AST ALT Alkaline Phosphatase Lactate Dehydrogenase Troponin T C-Reactive Protein Total Protein Albumin Prealbumin Triglycerides Cholesterol LDL Cholesterol Direct HDL Cholesterol 25-OH Vitamin D Total PTH Intact Urine pH Urine WBC (Auto) Urine Creatinine Urine Total Protein Fluid Total Protein Vancomycin Trough Rheumatoid Factor Complement C4 Miscellaneous Test Crossmatch 09/14/16 09/14/16 09/15/16 18:12 23:37 05:00 WBC 26.1 H RBC 3.05 L Hgb 7.2 L Hct 22.9 L MCV 75 L MCH 24 L MCHC RDW 19.0 H Plt Count Lymph % (Auto) [place] % (Auto) Lymph # [place] # Baso # Seg Neutrophils % Seg Neuts % (Manual) Lymphocytes % (Manual) Monocytes % (Manual) Eosinophils % (Manual) Basophils % (Manual) Nucleated RBC % Seg Neutrophils # Seg Neutrophils # Man Lymphocytes # (Manual) Monocytes # (Manual) Eosinophils # (Manual) Basophils # (Manual) PT INR Fibrinogen dRVVT Confirm Interp Factor V Activity POC ABG pH POC ABG pCO2 POC ABG pO2 ABG pO2 ABG HCO3 ABG Base Excess ABG Hemoglobin Oxyhemoglobin Sodium Potassium Chloride Carbon Dioxide BUN Creatinine Glucose POC Glucose 266 H 154 H Lactic Acid Calcium Ionized Calcium Phosphorus Magnesium Direct Bilirubin AST ALT Alkaline Phosphatase Lactate Dehydrogenase Troponin T C-Reactive Protein Total Protein Albumin Prealbumin Triglycerides Cholesterol LDL Cholesterol Direct HDL Cholesterol 25-OH Vitamin D Total PTH Intact Urine pH Urine WBC (Auto) Urine Creatinine Urine Total Protein Fluid Total Protein Vancomycin Trough Rheumatoid Factor Complement C4 Miscellaneous Test Crossmatch 09/15/16 09/15/16 09/15/16 05:00 05:17 12:45 WBC RBC Hgb Hct MCV MCH MCHC RDW Plt Count Lymph % (Auto) [place] % (Auto) Lymph # [place] # Baso # Seg Neutrophils % Seg Neuts % (Manual) Lymphocytes % (Manual) Monocytes % (Manual) Eosinophils % (Manual) Basophils % (Manual) Nucleated RBC % Seg Neutrophils # Seg Neutrophils # Man Lymphocytes # (Manual) Monocytes # (Manual) Eosinophils # (Manual) Basophils # (Manual) PT INR Fibrinogen dRVVT Confirm Interp Factor V Activity POC ABG pH POC ABG pCO2 POC ABG pO2 ABG pO2 ABG HCO3 ABG Base Excess ABG Hemoglobin Oxyhemoglobin Sodium Potassium 5.2 H Chloride Carbon Dioxide 18 L BUN 139 H Creatinine 3.7 H Glucose 227 H POC Glucose 226 H 244 H Lactic Acid Calcium 8.3 L Ionized Calcium Phosphorus Magnesium Direct Bilirubin AST ALT Alkaline Phosphatase Lactate Dehydrogenase Troponin T C-Reactive Protein Total Protein Albumin Prealbumin Triglycerides Cholesterol LDL Cholesterol Direct HDL Cholesterol 25-OH Vitamin D Total PTH Intact Urine pH Urine WBC (Auto) Urine Creatinine Urine Total Protein Fluid Total Protein Vancomycin Trough Rheumatoid Factor Complement C4 Miscellaneous Test Crossmatch 09/15/16 09/15/16 09/15/16 14:32 17:33 23:35 WBC RBC Hgb Hct MCV MCH MCHC RDW Plt Count Lymph % (Auto) [place] % (Auto) Lymph # [place] # Baso # Seg Neutrophils % Seg Neuts % (Manual) Lymphocytes % (Manual) Monocytes % (Manual) Eosinophils % (Manual) Basophils % (Manual) Nucleated RBC % Seg Neutrophils # Seg Neutrophils # Man Lymphocytes # (Manual) Monocytes # (Manual) Eosinophils # (Manual) Basophils # (Manual) PT INR Fibrinogen dRVVT Confirm Interp Factor V Activity POC ABG pH POC ABG pCO2 27.7 L POC ABG pO2 120 H ABG pO2 ABG HCO3 ABG Base Excess ABG Hemoglobin Oxyhemoglobin Sodium Potassium Chloride Carbon Dioxide BUN Creatinine Glucose POC Glucose 232 H 167 H Lactic Acid Calcium Ionized Calcium Phosphorus Magnesium Direct Bilirubin AST ALT Alkaline Phosphatase Lactate Dehydrogenase Troponin T C-Reactive Protein Total Protein Albumin Prealbumin Triglycerides Cholesterol LDL Cholesterol Direct HDL Cholesterol 25-OH Vitamin D Total PTH Intact Urine pH Urine WBC (Auto) Urine Creatinine Urine Total Protein Fluid Total Protein Vancomycin Trough Rheumatoid Factor Complement C4 Miscellaneous Test Crossmatch 09/16/16 09/16/16 09/16/16 03:58 10:27 10:27 WBC 19.0 H RBC 2.77 L Hgb 6.5 L Hct 20.9 L MCV 76 L MCH 23 L MCHC RDW 19.3 H Plt Count Lymph % (Auto) 11.0 L [place] % (Auto) Lymph # [place] # 1.1 H Baso # Seg Neutrophils % 82.5 H Seg Neuts % (Manual) Lymphocytes % (Manual) Monocytes % (Manual) Eosinophils % (Manual) Basophils % (Manual) Nucleated RBC % Seg Neutrophils # 15.7 H Seg Neutrophils # Man Lymphocytes # (Manual) Monocytes # (Manual) Eosinophils # (Manual) Basophils # (Manual) PT INR Fibrinogen dRVVT Confirm Interp Factor V Activity POC ABG pH POC ABG pCO2 POC ABG pO2 ABG pO2 ABG HCO3 ABG Base Excess ABG Hemoglobin Oxyhemoglobin Sodium Potassium Chloride 109.3 H Carbon Dioxide 18 L BUN 139 H Creatinine 4.1 H Glucose 144 H POC Glucose 146 H Lactic Acid Calcium 8.1 L Ionized Calcium Phosphorus Magnesium Direct Bilirubin AST ALT Alkaline Phosphatase Lactate Dehydrogenase Troponin T C-Reactive Protein Total Protein Albumin Prealbumin Triglycerides Cholesterol LDL Cholesterol Direct HDL Cholesterol 25-OH Vitamin D Total PTH Intact Urine pH Urine WBC (Auto) Urine Creatinine Urine Total Protein Fluid Total Protein Vancomycin Trough Rheumatoid Factor Complement C4 Miscellaneous Test Crossmatch 09/16/16 09/16/16 09/16/16 12:04 12:10 13:55 WBC RBC Hgb Hct MCV MCH MCHC RDW Plt Count Lymph % (Auto) [place] % (Auto) Lymph # [place] # Baso # Seg Neutrophils % Seg Neuts % (Manual) Lymphocytes % (Manual) Monocytes % (Manual) Eosinophils % (Manual) Basophils % (Manual) Nucleated RBC % Seg Neutrophils # Seg Neutrophils # Man Lymphocytes # (Manual) Monocytes # (Manual) Eosinophils # (Manual) Basophils # (Manual) PT INR Fibrinogen dRVVT Confirm Interp Factor V Activity POC ABG pH POC ABG pCO2 32.9 L POC ABG pO2 ABG pO2 ABG HCO3 ABG Base Excess ABG Hemoglobin Oxyhemoglobin Sodium Potassium Chloride Carbon Dioxide BUN Creatinine Glucose POC Glucose 185 H Lactic Acid Calcium Ionized Calcium Phosphorus Magnesium Direct Bilirubin AST ALT Alkaline Phosphatase Lactate Dehydrogenase Troponin T C-Reactive Protein Total Protein Albumin Prealbumin Triglycerides Cholesterol LDL Cholesterol Direct HDL Cholesterol 25-OH Vitamin D Total PTH Intact Urine pH Urine WBC (Auto) Urine Creatinine Urine Total Protein Fluid Total Protein Vancomycin Trough Rheumatoid Factor Complement C4 Miscellaneous Test Crossmatch See Detail 09/16/16 09/16/16 09/16/16 17:55 19:19 23:48 WBC RBC Hgb Hct MCV MCH MCHC RDW Plt Count Lymph % (Auto) [place] % (Auto) Lymph # [place] # Baso # Seg Neutrophils % Seg Neuts % (Manual) Lymphocytes % (Manual) Monocytes % (Manual) Eosinophils % (Manual) Basophils % (Manual) Nucleated RBC % Seg Neutrophils # Seg Neutrophils # Man Lymphocytes # (Manual) Monocytes # (Manual) Eosinophils # (Manual) Basophils # (Manual) PT INR Fibrinogen dRVVT Confirm Interp Factor V Activity POC ABG pH POC ABG pCO2 POC ABG pO2 ABG pO2 ABG HCO3 ABG Base Excess ABG Hemoglobin Oxyhemoglobin Sodium Potassium Chloride Carbon Dioxide BUN Creatinine Glucose POC Glucose 222 H 107 H Lactic Acid Calcium Ionized Calcium Phosphorus Magnesium Direct Bilirubin AST ALT Alkaline Phosphatase Lactate Dehydrogenase Troponin T C-Reactive Protein Total Protein Albumin Prealbumin Triglycerides Cholesterol LDL Cholesterol Direct HDL Cholesterol 25-OH Vitamin D Total PTH Intact Urine pH Urine WBC (Auto) Urine Creatinine 47.4 H Urine Total Protein 16 H Fluid Total Protein Vancomycin Trough Rheumatoid Factor Complement C4 Miscellaneous Test Crossmatch 09/17/16 09/17/16 09/17/16 03:45 03:45 04:55 WBC 19.6 H RBC 3.41 L Hgb 8.5 L Hct 26.7 L MCV 78 L MCH 25 L MCHC RDW 19.9 H Plt Count Lymph % (Auto) 9.3 L [place] % (Auto) Lymph # [place] # 1.2 H Baso # Seg Neutrophils % 83.9 H Seg Neuts % (Manual) Lymphocytes % (Manual) Monocytes % (Manual) Eosinophils % (Manual) Basophils % (Manual) Nucleated RBC % Seg Neutrophils # 16.4 H Seg Neutrophils # Man Lymphocytes # (Manual) Monocytes # (Manual) Eosinophils # (Manual) Basophils # (Manual) PT INR Fibrinogen dRVVT Confirm Interp Factor V Activity POC ABG pH POC ABG pCO2 POC ABG pO2 ABG pO2 ABG HCO3 ABG Base Excess ABG Hemoglobin Oxyhemoglobin Sodium 146 H Potassium 5.1 H Chloride 110.9 H Carbon Dioxide 16 L BUN 146 H Creatinine 4.0 H Glucose 108 H POC Glucose 133 H Lactic Acid Calcium Ionized Calcium Phosphorus Magnesium 3.00 H Direct Bilirubin AST ALT Alkaline Phosphatase Lactate Dehydrogenase Troponin T C-Reactive Protein Total Protein Albumin Prealbumin Triglycerides Cholesterol LDL Cholesterol Direct HDL Cholesterol 25-OH Vitamin D Total PTH Intact Urine pH Urine WBC (Auto) Urine Creatinine Urine Total Protein Fluid Total Protein Vancomycin Trough Rheumatoid Factor Complement C4 Miscellaneous Test Crossmatch 09/17/16 09/17/16 09/17/16 11:15 17:33 23:47 WBC RBC Hgb Hct MCV MCH MCHC RDW Plt Count Lymph % (Auto) [place] % (Auto) Lymph # [place] # Baso # Seg Neutrophils % Seg Neuts % (Manual) Lymphocytes % (Manual) Monocytes % (Manual) Eosinophils % (Manual) Basophils % (Manual) Nucleated RBC % Seg Neutrophils # Seg Neutrophils # Man Lymphocytes # (Manual) Monocytes # (Manual) Eosinophils # (Manual) Basophils # (Manual) PT INR Fibrinogen dRVVT Confirm Interp Factor V Activity POC ABG pH POC ABG pCO2 POC ABG pO2 ABG pO2 ABG HCO3 ABG Base Excess ABG Hemoglobin Oxyhemoglobin Sodium Potassium Chloride Carbon Dioxide BUN Creatinine Glucose POC Glucose 176 H 246 H 148 H Lactic Acid Calcium Ionized Calcium Phosphorus Magnesium Direct Bilirubin AST ALT Alkaline Phosphatase Lactate Dehydrogenase Troponin T C-Reactive Protein Total Protein Albumin Prealbumin Triglycerides Cholesterol LDL Cholesterol Direct HDL Cholesterol 25-OH Vitamin D Total PTH Intact Urine pH Urine WBC (Auto) Urine Creatinine Urine Total Protein Fluid Total Protein Vancomycin Trough Rheumatoid Factor Complement C4 Miscellaneous Test Crossmatch 09/18/16 09/18/16 09/18/16 05:33 08:31 08:31 WBC 18.0 H RBC 3.17 L Hgb 9.0 L Hct 25.7 L MCV MCH MCHC 35 H RDW 20.4 H Plt Count Lymph % (Auto) [place] % (Auto) Lymph # [place] # Baso # Seg Neutrophils % Seg Neuts % (Manual) Lymphocytes % (Manual) Monocytes % (Manual) Eosinophils % (Manual) Basophils % (Manual) Nucleated RBC % Seg Neutrophils # Seg Neutrophils # Man Lymphocytes # (Manual) Monocytes # (Manual) Eosinophils # (Manual) Basophils # (Manual) PT INR Fibrinogen dRVVT Confirm Interp Factor V Activity POC ABG pH POC ABG pCO2 POC ABG pO2 ABG pO2 ABG HCO3 ABG Base Excess ABG Hemoglobin Oxyhemoglobin Sodium Potassium Chloride Carbon Dioxide 15 L BUN 124 H Creatinine 3.8 H Glucose POC Glucose 120 H Lactic Acid Calcium 8.1 L Ionized Calcium Phosphorus Magnesium Direct Bilirubin AST ALT Alkaline Phosphatase Lactate Dehydrogenase Troponin T C-Reactive Protein Total Protein Albumin Prealbumin Triglycerides Cholesterol LDL Cholesterol Direct HDL Cholesterol 25-OH Vitamin D Total PTH Intact Urine pH Urine WBC (Auto) Urine Creatinine Urine Total Protein Fluid Total Protein Vancomycin Trough Rheumatoid Factor Complement C4 Miscellaneous Test Crossmatch 09/18/16 09/18/16 09/18/16 12:03 15:34 17:50 WBC RBC Hgb Hct MCV MCH MCHC RDW Plt Count Lymph % (Auto) [place] % (Auto) Lymph # [place] # Baso # Seg Neutrophils % Seg Neuts % (Manual) Lymphocytes % (Manual) Monocytes % (Manual) Eosinophils % (Manual) Basophils % (Manual) Nucleated RBC % Seg Neutrophils # Seg Neutrophils # Man Lymphocytes # (Manual) Monocytes # (Manual) Eosinophils # (Manual) Basophils # (Manual) PT INR Fibrinogen dRVVT Confirm Interp Factor V Activity POC ABG pH POC ABG pCO2 25.7 L POC ABG pO2 66 L ABG pO2 ABG HCO3 ABG Base Excess ABG Hemoglobin Oxyhemoglobin Sodium Potassium Chloride Carbon Dioxide BUN Creatinine Glucose POC Glucose 156 H 220 H Lactic Acid Calcium Ionized Calcium Phosphorus Magnesium Direct Bilirubin AST ALT Alkaline Phosphatase Lactate Dehydrogenase Troponin T C-Reactive Protein Total Protein Albumin Prealbumin Triglycerides Cholesterol LDL Cholesterol Direct HDL Cholesterol 25-OH Vitamin D Total PTH Intact Urine pH Urine WBC (Auto) Urine Creatinine Urine Total Protein Fluid Total Protein Vancomycin Trough Rheumatoid Factor Complement C4 Miscellaneous Test Crossmatch 09/19/16 09/19/16 09/19/16 06:21 09:50 09:50 WBC 17.1 H RBC 3.49 L Hgb 9.0 L Hct 28.1 L MCV MCH 26 L MCHC RDW 20.8 H Plt Count Lymph % (Auto) 11.5 L [place] % (Auto) 7.5 H Lymph # [place] # 1.3 H Baso # Seg Neutrophils % 79.8 H Seg Neuts % (Manual) Lymphocytes % (Manual) Monocytes % (Manual) Eosinophils % (Manual) Basophils % (Manual) Nucleated RBC % Seg Neutrophils # 13.7 H Seg Neutrophils # Man Lymphocytes # (Manual) Monocytes # (Manual) Eosinophils # (Manual) Basophils # (Manual) PT INR Fibrinogen dRVVT Confirm Interp Factor V Activity POC ABG pH POC ABG pCO2 POC ABG pO2 ABG pO2 ABG HCO3 ABG Base Excess ABG Hemoglobin Oxyhemoglobin Sodium Potassium Chloride 108.6 H Carbon Dioxide 15 L BUN 125 H Creatinine 4.1 H Glucose 124 H POC Glucose 119 H Lactic Acid Calcium Ionized Calcium Phosphorus Magnesium Direct Bilirubin AST ALT Alkaline Phosphatase Lactate Dehydrogenase Troponin T C-Reactive Protein Total Protein Albumin Prealbumin Triglycerides Cholesterol LDL Cholesterol Direct HDL Cholesterol 25-OH Vitamin D Total PTH Intact Urine pH Urine WBC (Auto) Urine Creatinine Urine Total Protein Fluid Total Protein Vancomycin Trough Rheumatoid Factor Complement C4 Miscellaneous Test Crossmatch 09/19/16 09/19/16 09/19/16 11:25 17:53 23:36 WBC RBC Hgb Hct MCV MCH MCHC RDW Plt Count Lymph % (Auto) [place] % (Auto) Lymph # [place] # Baso # Seg Neutrophils % Seg Neuts % (Manual) Lymphocytes % (Manual) Monocytes % (Manual) Eosinophils % (Manual) Basophils % (Manual) Nucleated RBC % Seg Neutrophils # Seg Neutrophils # Man Lymphocytes # (Manual) Monocytes # (Manual) Eosinophils # (Manual) Basophils # (Manual) PT INR Fibrinogen dRVVT Confirm Interp Factor V Activity POC ABG pH POC ABG pCO2 POC ABG pO2 ABG pO2 ABG HCO3 ABG Base Excess ABG Hemoglobin Oxyhemoglobin Sodium Potassium Chloride Carbon Dioxide BUN Creatinine Glucose POC Glucose 160 H 245 H 121 H Lactic Acid Calcium Ionized Calcium Phosphorus Magnesium Direct Bilirubin AST ALT Alkaline Phosphatase Lactate Dehydrogenase Troponin T C-Reactive Protein Total Protein Albumin Prealbumin Triglycerides Cholesterol LDL Cholesterol Direct HDL Cholesterol 25-OH Vitamin D Total PTH Intact Urine pH Urine WBC (Auto) Urine Creatinine Urine Total Protein Fluid Total Protein Vancomycin Trough Rheumatoid Factor Complement C4 Miscellaneous Test Crossmatch 09/20/16 09/20/16 09/20/16 04:10 04:10 04:10 WBC 17.0 H RBC 3.21 L Hgb 8.2 L Hct 25.5 L MCV MCH 26 L MCHC RDW 20.9 H Plt Count Lymph % (Auto) [place] % (Auto) Lymph # [place] # Baso # Seg Neutrophils % Seg Neuts % (Manual) Lymphocytes % (Manual) Monocytes % (Manual) Eosinophils % (Manual) Basophils % (Manual) Nucleated RBC % Seg Neutrophils # Seg Neutrophils # Man Lymphocytes # (Manual) Monocytes # (Manual) Eosinophils # (Manual) Basophils # (Manual) PT INR Fibrinogen dRVVT Confirm Interp Factor V Activity POC ABG pH POC ABG pCO2 POC ABG pO2 ABG pO2 ABG HCO3 ABG Base Excess ABG Hemoglobin Oxyhemoglobin Sodium Potassium Chloride 111.0 H Carbon Dioxide 16 L BUN 129 H Creatinine 3.7 H Glucose 115 H POC Glucose Lactic Acid Calcium 8.2 L Ionized Calcium Phosphorus Magnesium Direct Bilirubin AST ALT Alkaline Phosphatase Lactate Dehydrogenase Troponin T C-Reactive Protein Total Protein Albumin Prealbumin Triglycerides 243 H Cholesterol LDL Cholesterol Direct HDL Cholesterol 25-OH Vitamin D Total PTH Intact Urine pH Urine WBC (Auto) Urine Creatinine Urine Total Protein Fluid Total Protein Vancomycin Trough Rheumatoid Factor Complement C4 Miscellaneous Test Crossmatch 09/20/16 09/20/16 09/20/16 05:40 11:52 16:50 WBC RBC Hgb Hct MCV MCH MCHC RDW Plt Count Lymph % (Auto) [place] % (Auto) Lymph # [place] # Baso # Seg Neutrophils % Seg Neuts % (Manual) Lymphocytes % (Manual) Monocytes % (Manual) Eosinophils % (Manual) Basophils % (Manual) Nucleated RBC % Seg Neutrophils # Seg Neutrophils # Man Lymphocytes # (Manual) Monocytes # (Manual) Eosinophils # (Manual) Basophils # (Manual) PT INR Fibrinogen dRVVT Confirm Interp Factor V Activity POC ABG pH POC ABG pCO2 POC ABG pO2 ABG pO2 ABG HCO3 ABG Base Excess ABG Hemoglobin Oxyhemoglobin Sodium Potassium Chloride Carbon Dioxide BUN Creatinine Glucose POC Glucose 131 H 183 H 236 H Lactic Acid Calcium Ionized Calcium Phosphorus Magnesium Direct Bilirubin AST ALT Alkaline Phosphatase Lactate Dehydrogenase Troponin T C-Reactive Protein Total Protein Albumin Prealbumin Triglycerides Cholesterol LDL Cholesterol Direct HDL Cholesterol 25-OH Vitamin D Total PTH Intact Urine pH Urine WBC (Auto) Urine Creatinine Urine Total Protein Fluid Total Protein Vancomycin Trough Rheumatoid Factor Complement C4 Miscellaneous Test Crossmatch 09/20/16 09/21/16 09/21/16 23:51 03:30 04:44 WBC RBC Hgb Hct MCV MCH MCHC RDW Plt Count Lymph % (Auto) [place] % (Auto) Lymph # [place] # Baso # Seg Neutrophils % Seg Neuts % (Manual) Lymphocytes % (Manual) Monocytes % (Manual) Eosinophils % (Manual) Basophils % (Manual) Nucleated RBC % Seg Neutrophils # Seg Neutrophils # Man Lymphocytes # (Manual) Monocytes # (Manual) Eosinophils # (Manual) Basophils # (Manual) PT INR Fibrinogen dRVVT Confirm Interp Factor V Activity POC ABG pH POC ABG pCO2 POC ABG pO2 ABG pO2 ABG HCO3 ABG Base Excess ABG Hemoglobin Oxyhemoglobin Sodium Potassium Chloride Carbon Dioxide BUN Creatinine Glucose POC Glucose 114 H 141 H Lactic Acid Calcium Ionized Calcium Phosphorus Magnesium 2.70 H Direct Bilirubin AST ALT Alkaline Phosphatase Lactate Dehydrogenase Troponin T C-Reactive Protein Total Protein Albumin Prealbumin Triglycerides Cholesterol LDL Cholesterol Direct HDL Cholesterol 25-OH Vitamin D Total PTH Intact Urine pH Urine WBC (Auto) Urine Creatinine Urine Total Protein Fluid Total Protein Vancomycin Trough Rheumatoid Factor Complement C4 Miscellaneous Test Crossmatch 09/21/16 09/21/16 09/21/16 07:45 07:45 10:01 WBC 13.8 H RBC 2.94 L Hgb 7.5 L Hct 23.5 L MCV MCH 26 L MCHC RDW 21.2 H Plt Count Lymph % (Auto) 6.9 L [place] % (Auto) 9.4 H Lymph # 0.9 L [place] # 1.3 H Baso # Seg Neutrophils % 83.2 H Seg Neuts % (Manual) Lymphocytes % (Manual) Monocytes % (Manual) Eosinophils % (Manual) Basophils % (Manual) Nucleated RBC % Seg Neutrophils # 11.5 H Seg Neutrophils # Man Lymphocytes # (Manual) Monocytes # (Manual) Eosinophils # (Manual) Basophils # (Manual) PT INR Fibrinogen dRVVT Confirm Interp Factor V Activity POC ABG pH 7.308 L POC ABG pCO2 31.9 L POC ABG pO2 148 H ABG pO2 ABG HCO3 ABG Base Excess ABG Hemoglobin Oxyhemoglobin Sodium 147 H Potassium Chloride 114.2 H Carbon Dioxide 15 L BUN 120 H Creatinine 3.9 H Glucose 156 H POC Glucose Lactic Acid Calcium 8.2 L Ionized Calcium Phosphorus Magnesium Direct Bilirubin AST ALT Alkaline Phosphatase Lactate Dehydrogenase Troponin T C-Reactive Protein Total Protein Albumin Prealbumin Triglycerides Cholesterol LDL Cholesterol Direct HDL Cholesterol 25-OH Vitamin D Total PTH Intact Urine pH Urine WBC (Auto) Urine Creatinine Urine Total Protein Fluid Total Protein Vancomycin Trough Rheumatoid Factor Complement C4 Miscellaneous Test Crossmatch 09/21/16 09/21/16 09/21/16 12:00 12:03 13:00 WBC RBC Hgb Hct MCV MCH MCHC RDW Plt Count Lymph % (Auto) [place] % (Auto) Lymph # [place] # Baso # Seg Neutrophils % Seg Neuts % (Manual) Lymphocytes % (Manual) Monocytes % (Manual) Eosinophils % (Manual) Basophils % (Manual) Nucleated RBC % Seg Neutrophils # Seg Neutrophils # Man Lymphocytes # (Manual) Monocytes # (Manual) Eosinophils # (Manual) Basophils # (Manual) PT INR Fibrinogen dRVVT Confirm Interp Factor V Activity POC ABG pH POC ABG pCO2 POC ABG pO2 ABG pO2 ABG HCO3 ABG Base Excess ABG Hemoglobin Oxyhemoglobin Sodium Potassium Chloride Carbon Dioxide BUN Creatinine Glucose POC Glucose 163 H Lactic Acid Calcium Ionized Calcium Phosphorus Magnesium Direct Bilirubin AST ALT Alkaline Phosphatase Lactate Dehydrogenase Troponin T C-Reactive Protein Total Protein Albumin Prealbumin Triglycerides Cholesterol LDL Cholesterol Direct HDL Cholesterol 25-OH Vitamin D Total PTH Intact Urine pH Urine WBC (Auto) Urine Creatinine 54.8 H Urine Total Protein Fluid Total Protein Vancomycin Trough 2.3 L Rheumatoid Factor Complement C4 Miscellaneous Test Crossmatch 09/21/16 09/21/16 09/22/16 16:51 23:17 06:27 WBC RBC Hgb Hct MCV MCH MCHC RDW Plt Count Lymph % (Auto) [place] % (Auto) Lymph # [place] # Baso # Seg Neutrophils % Seg Neuts % (Manual) Lymphocytes % (Manual) Monocytes % (Manual) Eosinophils % (Manual) Basophils % (Manual) Nucleated RBC % Seg Neutrophils # Seg Neutrophils # Man Lymphocytes # (Manual) Monocytes # (Manual) Eosinophils # (Manual) Basophils # (Manual) PT INR Fibrinogen dRVVT Confirm Interp Factor V Activity POC ABG pH POC ABG pCO2 POC ABG pO2 ABG pO2 ABG HCO3 ABG Base Excess ABG Hemoglobin Oxyhemoglobin Sodium Potassium Chloride Carbon Dioxide BUN Creatinine Glucose POC Glucose 206 H 114 H 115 H Lactic Acid Calcium Ionized Calcium Phosphorus Magnesium Direct Bilirubin AST ALT Alkaline Phosphatase Lactate Dehydrogenase Troponin T C-Reactive Protein Total Protein Albumin Prealbumin Triglycerides Cholesterol LDL Cholesterol Direct HDL Cholesterol 25-OH Vitamin D Total PTH Intact Urine pH Urine WBC (Auto) Urine Creatinine Urine Total Protein Fluid Total Protein Vancomycin Trough Rheumatoid Factor Complement C4 Miscellaneous Test Crossmatch 09/22/16 09/22/16 09/22/16 07:50 07:50 12:00 WBC 17.8 H RBC 3.04 L Hgb 8.0 L Hct 24.7 L MCV MCH 26 L MCHC RDW 21.6 H Plt Count Lymph % (Auto) [place] % (Auto) Lymph # [place] # Baso # Seg Neutrophils % Seg Neuts % (Manual) Lymphocytes % (Manual) Monocytes % (Manual) Eosinophils % (Manual) Basophils % (Manual) Nucleated RBC % Seg Neutrophils # Seg Neutrophils # Man Lymphocytes # (Manual) Monocytes # (Manual) Eosinophils # (Manual) Basophils # (Manual) PT INR Fibrinogen dRVVT Confirm Interp Factor V Activity POC ABG pH POC ABG pCO2 POC ABG pO2 ABG pO2 ABG HCO3 ABG Base Excess ABG Hemoglobin Oxyhemoglobin Sodium 150 H Potassium Chloride 118.2 H Carbon Dioxide 14 L BUN 111 H Creatinine 3.7 H Glucose 157 H POC Glucose 183 H Lactic Acid Calcium Ionized Calcium Phosphorus Magnesium Direct Bilirubin AST ALT Alkaline Phosphatase Lactate Dehydrogenase Troponin T C-Reactive Protein Total Protein Albumin Prealbumin Triglycerides Cholesterol LDL Cholesterol Direct HDL Cholesterol 25-OH Vitamin D Total PTH Intact Urine pH Urine WBC (Auto) Urine Creatinine Urine Total Protein Fluid Total Protein Vancomycin Trough Rheumatoid Factor Complement C4 Miscellaneous Test Crossmatch 09/22/16 09/22/16 09/23/16 17:29 23:10 05:00 WBC 19.2 H RBC 3.13 L Hgb 8.0 L Hct 25.2 L MCV MCH 26 L MCHC RDW 22.1 H Plt Count Lymph % (Auto) [place] % (Auto) Lymph # [place] # Baso # Seg Neutrophils % Seg Neuts % (Manual) 92.0 H Lymphocytes % (Manual) 3.0 L Monocytes % (Manual) Eosinophils % (Manual) Basophils % (Manual) Nucleated RBC % Seg Neutrophils # Seg Neutrophils # Man 17.7 H Lymphocytes # (Manual) 0.6 L Monocytes # (Manual) Eosinophils # (Manual) Basophils # (Manual) PT INR Fibrinogen dRVVT Confirm Interp Factor V Activity POC ABG pH POC ABG pCO2 POC ABG pO2 ABG pO2 ABG HCO3 ABG Base Excess ABG Hemoglobin Oxyhemoglobin Sodium Potassium Chloride Carbon Dioxide BUN Creatinine Glucose POC Glucose 197 H 169 H Lactic Acid Calcium Ionized Calcium Phosphorus Magnesium Direct Bilirubin AST ALT Alkaline Phosphatase Lactate Dehydrogenase Troponin T C-Reactive Protein Total Protein Albumin Prealbumin Triglycerides Cholesterol LDL Cholesterol Direct HDL Cholesterol 25-OH Vitamin D Total PTH Intact Urine pH Urine WBC (Auto) Urine Creatinine Urine Total Protein Fluid Total Protein Vancomycin Trough Rheumatoid Factor Complement C4 Miscellaneous Test Crossmatch 09/23/16 09/23/16 09/23/16 05:00 05:00 05:10 WBC RBC Hgb Hct MCV MCH MCHC RDW Plt Count Lymph % (Auto) [place] % (Auto) Lymph # [place] # Baso # Seg Neutrophils % Seg Neuts % (Manual) Lymphocytes % (Manual) Monocytes % (Manual) Eosinophils % (Manual) Basophils % (Manual) Nucleated RBC % Seg Neutrophils # Seg Neutrophils # Man Lymphocytes # (Manual) Monocytes # (Manual) Eosinophils # (Manual) Basophils # (Manual) PT INR Fibrinogen dRVVT Confirm Interp Factor V Activity POC ABG pH POC ABG pCO2 POC ABG pO2 ABG pO2 ABG HCO3 ABG Base Excess ABG Hemoglobin Oxyhemoglobin Sodium 147 H Potassium 3.2 L Chloride 115.7 H Carbon Dioxide 13 L BUN 111 H Creatinine 3.8 H Glucose 194 H POC Glucose 188 H Lactic Acid Calcium 7.3 L D Ionized Calcium Phosphorus Magnesium Direct Bilirubin AST ALT Alkaline Phosphatase Lactate Dehydrogenase Troponin T C-Reactive Protein 3.20 H Total Protein Albumin Prealbumin Triglycerides Cholesterol LDL Cholesterol Direct HDL Cholesterol 25-OH Vitamin D Total PTH Intact Urine pH Urine WBC (Auto) Urine Creatinine Urine Total Protein Fluid Total Protein Vancomycin Trough Rheumatoid Factor Complement C4 Miscellaneous Test Crossmatch 09/23/16 09/23/16 09/23/16 11:37 12:29 18:01 WBC RBC Hgb Hct MCV MCH MCHC RDW Plt Count Lymph % (Auto) [place] % (Auto) Lymph # [place] # Baso # Seg Neutrophils % Seg Neuts % (Manual) Lymphocytes % (Manual) Monocytes % (Manual) Eosinophils % (Manual) Basophils % (Manual) Nucleated RBC % Seg Neutrophils # Seg Neutrophils # Man Lymphocytes # (Manual) Monocytes # (Manual) Eosinophils # (Manual) Basophils # (Manual) PT INR Fibrinogen dRVVT Confirm Interp Factor V Activity POC ABG pH POC ABG pCO2 18.9 L POC ABG pO2 143 H ABG pO2 ABG HCO3 ABG Base Excess ABG Hemoglobin Oxyhemoglobin Sodium Potassium Chloride Carbon Dioxide BUN Creatinine Glucose POC Glucose 153 H 108 H Lactic Acid Calcium Ionized Calcium Phosphorus Magnesium Direct Bilirubin AST ALT Alkaline Phosphatase Lactate Dehydrogenase Troponin T C-Reactive Protein Total Protein Albumin Prealbumin Triglycerides Cholesterol LDL Cholesterol Direct HDL Cholesterol 25-OH Vitamin D Total PTH Intact Urine pH Urine WBC (Auto) Urine Creatinine Urine Total Protein Fluid Total Protein Vancomycin Trough Rheumatoid Factor Complement C4 Miscellaneous Test Crossmatch 09/23/16 09/23/16 09/24/16 21:19 23:43 05:16 WBC RBC Hgb Hct MCV MCH MCHC RDW Plt Count Lymph % (Auto) [place] % (Auto) Lymph # [place] # Baso # Seg Neutrophils % Seg Neuts % (Manual) Lymphocytes % (Manual) Monocytes % (Manual) Eosinophils % (Manual) Basophils % (Manual) Nucleated RBC % Seg Neutrophils # Seg Neutrophils # Man Lymphocytes # (Manual) Monocytes # (Manual) Eosinophils # (Manual) Basophils # (Manual) PT INR Fibrinogen dRVVT Confirm Interp Factor V Activity POC ABG pH POC ABG pCO2 17.3 L POC ABG pO2 112 H ABG pO2 ABG HCO3 ABG Base Excess ABG Hemoglobin Oxyhemoglobin Sodium Potassium Chloride Carbon Dioxide BUN Creatinine Glucose POC Glucose 143 H 164 H Lactic Acid Calcium Ionized Calcium Phosphorus Magnesium Direct Bilirubin AST ALT Alkaline Phosphatase Lactate Dehydrogenase Troponin T C-Reactive Protein Total Protein Albumin Prealbumin Triglycerides Cholesterol LDL Cholesterol Direct HDL Cholesterol 25-OH Vitamin D Total PTH Intact Urine pH Urine WBC (Auto) Urine Creatinine Urine Total Protein Fluid Total Protein Vancomycin Trough Rheumatoid Factor Complement C4 Miscellaneous Test Crossmatch 09/24/16 09/24/16 09/24/16 05:21 11:58 17:06 WBC RBC Hgb Hct MCV MCH MCHC RDW Plt Count Lymph % (Auto) [place] % (Auto) Lymph # [place] # Baso # Seg Neutrophils % Seg Neuts % (Manual) Lymphocytes % (Manual) Monocytes % (Manual) Eosinophils % (Manual) Basophils % (Manual) Nucleated RBC % Seg Neutrophils # Seg Neutrophils # Man Lymphocytes # (Manual) Monocytes # (Manual) Eosinophils # (Manual) Basophils # (Manual) PT INR Fibrinogen dRVVT Confirm Interp Factor V Activity POC ABG pH POC ABG pCO2 POC ABG pO2 ABG pO2 ABG HCO3 ABG Base Excess ABG Hemoglobin Oxyhemoglobin Sodium Potassium Chloride Carbon Dioxide 10 L BUN 103 H Creatinine 4.3 H Glucose 163 H POC Glucose 173 H 167 H Lactic Acid Calcium 6.5 L Ionized Calcium Phosphorus Magnesium Direct Bilirubin AST ALT Alkaline Phosphatase Lactate Dehydrogenase Troponin T C-Reactive Protein Total Protein Albumin Prealbumin Triglycerides Cholesterol LDL Cholesterol Direct HDL Cholesterol 25-OH Vitamin D Total PTH Intact Urine pH Urine WBC (Auto) Urine Creatinine Urine Total Protein Fluid Total Protein Vancomycin Trough Rheumatoid Factor Complement C4 Miscellaneous Test Crossmatch 09/24/16 09/24/16 09/24/16 20:15 21:02 23:48 WBC RBC Hgb Hct MCV MCH MCHC RDW Plt Count Lymph % (Auto) [place] % (Auto) Lymph # [place] # Baso # Seg Neutrophils % Seg Neuts % (Manual) Lymphocytes % (Manual) Monocytes % (Manual) Eosinophils % (Manual) Basophils % (Manual) Nucleated RBC % Seg Neutrophils # Seg Neutrophils # Man Lymphocytes # (Manual) Monocytes # (Manual) Eosinophils # (Manual) Basophils # (Manual) PT INR Fibrinogen dRVVT Confirm Interp Factor V Activity POC ABG pH 7.288 L POC ABG pCO2 30.2 L 21.5 L POC ABG pO2 32 L 39 L ABG pO2 ABG HCO3 ABG Base Excess ABG Hemoglobin Oxyhemoglobin Sodium Potassium Chloride Carbon Dioxide BUN Creatinine Glucose POC Glucose 109 H Lactic Acid Calcium Ionized Calcium Phosphorus Magnesium Direct Bilirubin AST ALT Alkaline Phosphatase Lactate Dehydrogenase Troponin T C-Reactive Protein Total Protein Albumin Prealbumin Triglycerides Cholesterol LDL Cholesterol Direct HDL Cholesterol 25-OH Vitamin D Total PTH Intact Urine pH Urine WBC (Auto) Urine Creatinine Urine Total Protein Fluid Total Protein Vancomycin Trough Rheumatoid Factor Complement C4 Miscellaneous Test Crossmatch 09/25/16 09/25/16 09/25/16 04:20 04:20 04:20 WBC RBC 2.58 L Hgb 7.0 L Hct 21.0 L MCV MCH 27 L MCHC RDW 23.8 H Plt Count Lymph % (Auto) [place] % (Auto) Lymph # [place] # Baso # Seg Neutrophils % Seg Neuts % (Manual) Lymphocytes % (Manual) 12.0 L Monocytes % (Manual) Eosinophils % (Manual) 7.0 H Basophils % (Manual) 2.0 H Nucleated RBC % Seg Neutrophils # Seg Neutrophils # Man Lymphocytes # (Manual) 0.9 L Monocytes # (Manual) Eosinophils # (Manual) 0.5 H Basophils # (Manual) PT INR Fibrinogen dRVVT Confirm Interp Factor V Activity POC ABG pH POC ABG pCO2 POC ABG pO2 ABG pO2 ABG HCO3 ABG Base Excess ABG Hemoglobin Oxyhemoglobin Sodium Potassium Chloride Carbon Dioxide 15 L BUN 72 H Creatinine 3.8 H Glucose POC Glucose Lactic Acid Calcium 6.0 L Ionized Calcium Phosphorus 4.60 H Magnesium 1.60 L Direct Bilirubin AST ALT Alkaline Phosphatase Lactate Dehydrogenase Troponin T C-Reactive Protein Total Protein Albumin Prealbumin Triglycerides Cholesterol LDL Cholesterol Direct HDL Cholesterol 25-OH Vitamin D Total PTH Intact Urine pH Urine WBC (Auto) Urine Creatinine Urine Total Protein Fluid Total Protein Vancomycin Trough Rheumatoid Factor Complement C4 Miscellaneous Test Crossmatch 09/25/16 09/25/16 09/25/16 04:57 08:02 10:30 WBC RBC Hgb Hct MCV MCH MCHC RDW Plt Count Lymph % (Auto) [place] % (Auto) Lymph # [place] # Baso # Seg Neutrophils % Seg Neuts % (Manual) Lymphocytes % (Manual) Monocytes % (Manual) Eosinophils % (Manual) Basophils % (Manual) Nucleated RBC % Seg Neutrophils # Seg Neutrophils # Man Lymphocytes # (Manual) Monocytes # (Manual) Eosinophils # (Manual) Basophils # (Manual) PT INR Fibrinogen dRVVT Confirm Interp Factor V Activity POC ABG pH POC ABG pCO2 24.7 L POC ABG pO2 152 H ABG pO2 ABG HCO3 ABG Base Excess ABG Hemoglobin Oxyhemoglobin Sodium Potassium Chloride Carbon Dioxide BUN Creatinine Glucose POC Glucose 113 H Lactic Acid Calcium Ionized Calcium Phosphorus Magnesium Direct Bilirubin AST ALT Alkaline Phosphatase Lactate Dehydrogenase Troponin T C-Reactive Protein Total Protein Albumin Prealbumin Triglycerides Cholesterol LDL Cholesterol Direct HDL Cholesterol 25-OH Vitamin D Total PTH Intact Urine pH Urine WBC (Auto) Urine Creatinine Urine Total Protein Fluid Total Protein Vancomycin Trough Rheumatoid Factor Complement C4 Miscellaneous Test Crossmatch See Detail 09/25/16 09/25/16 09/25/16 12:05 17:44 23:47 WBC RBC Hgb Hct MCV MCH MCHC RDW Plt Count Lymph % (Auto) [place] % (Auto) Lymph # [place] # Baso # Seg Neutrophils % Seg Neuts % (Manual) Lymphocytes % (Manual) Monocytes % (Manual) Eosinophils % (Manual) Basophils % (Manual) Nucleated RBC % Seg Neutrophils # Seg Neutrophils # Man Lymphocytes # (Manual) Monocytes # (Manual) Eosinophils # (Manual) Basophils # (Manual) PT INR Fibrinogen dRVVT Confirm Interp Factor V Activity POC ABG pH POC ABG pCO2 POC ABG pO2 ABG pO2 ABG HCO3 ABG Base Excess ABG Hemoglobin Oxyhemoglobin Sodium Potassium Chloride Carbon Dioxide BUN Creatinine Glucose POC Glucose 117 H 119 H 150 H Lactic Acid Calcium Ionized Calcium Phosphorus Magnesium Direct Bilirubin AST ALT Alkaline Phosphatase Lactate Dehydrogenase Troponin T C-Reactive Protein Total Protein Albumin Prealbumin Triglycerides Cholesterol LDL Cholesterol Direct HDL Cholesterol 25-OH Vitamin D Total PTH Intact Urine pH Urine WBC (Auto) Urine Creatinine Urine Total Protein Fluid Total Protein Vancomycin Trough Rheumatoid Factor Complement C4 Miscellaneous Test Crossmatch 09/26/16 09/26/16 09/26/16 04:25 04:25 04:25 WBC RBC 2.65 L Hgb 7.4 L Hct 21.6 L MCV MCH MCHC RDW 22.5 H Plt Count Lymph % (Auto) [place] % (Auto) Lymph # [place] # Baso # Seg Neutrophils % Seg Neuts % (Manual) Lymphocytes % (Manual) 6.0 L Monocytes % (Manual) Eosinophils % (Manual) 11.0 H Basophils % (Manual) Nucleated RBC % Seg Neutrophils # Seg Neutrophils # Man Lymphocytes # (Manual) 0.4 L Monocytes # (Manual) Eosinophils # (Manual) 0.6 H Basophils # (Manual) PT INR Fibrinogen dRVVT Confirm Interp Factor V Activity POC ABG pH POC ABG pCO2 POC ABG pO2 ABG pO2 ABG HCO3 ABG Base Excess ABG Hemoglobin Oxyhemoglobin Sodium Potassium Chloride 97.0 L Carbon Dioxide 19 L BUN 43 H Creatinine 2.6 H Glucose 130 H POC Glucose Lactic Acid 4.40 H* Calcium 6.7 L Ionized Calcium Phosphorus Magnesium Direct Bilirubin AST ALT Alkaline Phosphatase Lactate Dehydrogenase Troponin T C-Reactive Protein Total Protein Albumin Prealbumin Triglycerides Cholesterol LDL Cholesterol Direct HDL Cholesterol 25-OH Vitamin D Total PTH Intact Urine pH Urine WBC (Auto) Urine Creatinine Urine Total Protein Fluid Total Protein Vancomycin Trough Rheumatoid Factor Complement C4 Miscellaneous Test Crossmatch 09/26/16 09/26/16 09/26/16 05:20 11:44 12:12 WBC RBC Hgb Hct MCV MCH MCHC RDW Plt Count Lymph % (Auto) [place] % (Auto) Lymph # [place] # Baso # Seg Neutrophils % Seg Neuts % (Manual) Lymphocytes % (Manual) Monocytes % (Manual) Eosinophils % (Manual) Basophils % (Manual) Nucleated RBC % Seg Neutrophils # Seg Neutrophils # Man Lymphocytes # (Manual) Monocytes # (Manual) Eosinophils # (Manual) Basophils # (Manual) PT INR Fibrinogen dRVVT Confirm Interp Factor V Activity POC ABG pH POC ABG pCO2 27.0 L POC ABG pO2 69 L ABG pO2 ABG HCO3 ABG Base Excess ABG Hemoglobin Oxyhemoglobin Sodium Potassium Chloride Carbon Dioxide BUN Creatinine Glucose POC Glucose 121 H 128 H Lactic Acid Calcium Ionized Calcium Phosphorus Magnesium Direct Bilirubin AST ALT Alkaline Phosphatase Lactate Dehydrogenase Troponin T C-Reactive Protein Total Protein Albumin Prealbumin Triglycerides Cholesterol LDL Cholesterol Direct HDL Cholesterol 25-OH Vitamin D Total PTH Intact Urine pH Urine WBC (Auto) Urine Creatinine Urine Total Protein Fluid Total Protein Vancomycin Trough Rheumatoid Factor Complement C4 Miscellaneous Test Crossmatch 09/26/16 09/26/16 09/27/16 18:31 23:40 08:20 WBC RBC Hgb Hct MCV MCH MCHC RDW Plt Count Lymph % (Auto) [place] % (Auto) Lymph # [place] # Baso # Seg Neutrophils % Seg Neuts % (Manual) Lymphocytes % (Manual) Monocytes % (Manual) Eosinophils % (Manual) Basophils % (Manual) Nucleated RBC % Seg Neutrophils # Seg Neutrophils # Man Lymphocytes # (Manual) Monocytes # (Manual) Eosinophils # (Manual) Basophils # (Manual) PT INR Fibrinogen dRVVT Confirm Interp Factor V Activity POC ABG pH POC ABG pCO2 POC ABG pO2 ABG pO2 ABG HCO3 ABG Base Excess ABG Hemoglobin Oxyhemoglobin Sodium Potassium Chloride Carbon Dioxide BUN Creatinine Glucose POC Glucose 120 H 133 H Lactic Acid 4.10 H* Calcium Ionized Calcium Phosphorus Magnesium Direct Bilirubin AST ALT Alkaline Phosphatase Lactate Dehydrogenase Troponin T C-Reactive Protein Total Protein Albumin Prealbumin Triglycerides Cholesterol LDL Cholesterol Direct HDL Cholesterol 25-OH Vitamin D Total PTH Intact Urine pH Urine WBC (Auto) Urine Creatinine Urine Total Protein Fluid Total Protein Vancomycin Trough Rheumatoid Factor Complement C4 Miscellaneous Test Crossmatch 09/27/16 09/27/16 09/27/16 11:23 15:00 18:15 WBC RBC Hgb Hct MCV MCH MCHC RDW Plt Count Lymph % (Auto) [place] % (Auto) Lymph # [place] # Baso # Seg Neutrophils % Seg Neuts % (Manual) Lymphocytes % (Manual) Monocytes % (Manual) Eosinophils % (Manual) Basophils % (Manual) Nucleated RBC % Seg Neutrophils # Seg Neutrophils # Man Lymphocytes # (Manual) Monocytes # (Manual) Eosinophils # (Manual) Basophils # (Manual) PT INR Fibrinogen dRVVT Confirm Interp Factor V Activity POC ABG pH 7.459 H POC ABG pCO2 27.1 L POC ABG pO2 140 H ABG pO2 ABG HCO3 ABG Base Excess ABG Hemoglobin Oxyhemoglobin Sodium Potassium Chloride Carbon Dioxide BUN Creatinine Glucose POC Glucose 114 H 127 H Lactic Acid Calcium Ionized Calcium Phosphorus Magnesium Direct Bilirubin AST ALT Alkaline Phosphatase Lactate Dehydrogenase Troponin T C-Reactive Protein Total Protein Albumin Prealbumin Triglycerides Cholesterol LDL Cholesterol Direct HDL Cholesterol 25-OH Vitamin D Total PTH Intact Urine pH Urine WBC (Auto) Urine Creatinine Urine Total Protein Fluid Total Protein Vancomycin Trough Rheumatoid Factor Complement C4 Miscellaneous Test Crossmatch 09/27/16 09/27/16 09/28/16 Unknown Unknown 03:45 WBC RBC 2.49 L Hgb 6.8 L Hct 20.7 L MCV MCH 27 L MCHC RDW 22.1 H Plt Count Lymph % (Auto) [place] % (Auto) Lymph # [place] # Baso # Seg Neutrophils % Seg Neuts % (Manual) 32.0 L Lymphocytes % (Manual) 12.0 L Monocytes % (Manual) 11.0 H Eosinophils % (Manual) 10.0 H Basophils % (Manual) Nucleated RBC % Seg Neutrophils # Seg Neutrophils # Man Lymphocytes # (Manual) 1.0 L Monocytes # (Manual) 0.9 H Eosinophils # (Manual) 0.8 H Basophils # (Manual) PT INR Fibrinogen dRVVT Confirm Interp Factor V Activity POC ABG pH POC ABG pCO2 POC ABG pO2 ABG pO2 ABG HCO3 ABG Base Excess ABG Hemoglobin Oxyhemoglobin Sodium 135 L 135 L Potassium 3.5 L Chloride 93.6 L 94.4 L Carbon Dioxide 17 L 21 L BUN 45 H 28 H Creatinine 3.3 H 2.5 H Glucose 106 H POC Glucose Lactic Acid Calcium 7.3 L 7.1 L Ionized Calcium Phosphorus Magnesium Direct Bilirubin AST ALT Alkaline Phosphatase Lactate Dehydrogenase Troponin T C-Reactive Protein Total Protein Albumin Prealbumin Triglycerides Cholesterol LDL Cholesterol Direct HDL Cholesterol 25-OH Vitamin D Total PTH Intact Urine pH Urine WBC (Auto) Urine Creatinine Urine Total Protein Fluid Total Protein Vancomycin Trough Rheumatoid Factor Complement C4 Miscellaneous Test Crossmatch 09/28/16 09/28/16 09/28/16 03:45 07:25 11:58 WBC 13.3 H RBC 3.01 L Hgb 8.4 L Hct 25.0 L MCV MCH MCHC RDW 20.5 H Plt Count 128 L Lymph % (Auto) [place] % (Auto) Lymph # [place] # Baso # Seg Neutrophils % Seg Neuts % (Manual) Lymphocytes % (Manual) 7.0 L Monocytes % (Manual) Eosinophils % (Manual) 6.0 H Basophils % (Manual) Nucleated RBC % Seg Neutrophils # Seg Neutrophils # Man Lymphocytes # (Manual) 0.9 L Monocytes # (Manual) Eosinophils # (Manual) 0.8 H Basophils # (Manual) PT INR Fibrinogen dRVVT Confirm Interp Factor V Activity POC ABG pH POC ABG pCO2 POC ABG pO2 ABG pO2 ABG HCO3 ABG Base Excess ABG Hemoglobin Oxyhemoglobin Sodium Potassium Chloride Carbon Dioxide BUN Creatinine Glucose POC Glucose 121 H Lactic Acid 4.50 H* Calcium Ionized Calcium Phosphorus Magnesium Direct Bilirubin AST ALT Alkaline Phosphatase Lactate Dehydrogenase Troponin T C-Reactive Protein Total Protein Albumin Prealbumin Triglycerides Cholesterol LDL Cholesterol Direct HDL Cholesterol 25-OH Vitamin D Total PTH Intact Urine pH Urine WBC (Auto) Urine Creatinine Urine Total Protein Fluid Total Protein Vancomycin Trough Rheumatoid Factor Complement C4 Miscellaneous Test Crossmatch 09/29/16 09/29/16 09/29/16 06:45 06:45 06:45 WBC 14.9 H RBC 2.74 L Hgb 7.6 L Hct 23.2 L MCV MCH MCHC RDW 20.5 H Plt Count 81 L Lymph % (Auto) [place] % (Auto) Lymph # [place] # Baso # Seg Neutrophils % Seg Neuts % (Manual) 81.0 H Lymphocytes % (Manual) 4.0 L Monocytes % (Manual) Eosinophils % (Manual) Basophils % (Manual) Nucleated RBC % Seg Neutrophils # Seg Neutrophils # Man 12.1 H Lymphocytes # (Manual) 0.6 L Monocytes # (Manual) Eosinophils # (Manual) Basophils # (Manual) PT INR Fibrinogen dRVVT Confirm Interp Factor V Activity POC ABG pH POC ABG pCO2 POC ABG pO2 ABG pO2 ABG HCO3 ABG Base Excess ABG Hemoglobin Oxyhemoglobin Sodium 133 L Potassium 3.4 L Chloride 92.5 L Carbon Dioxide 21 L BUN 33 H Creatinine 3.0 H Glucose POC Glucose Lactic Acid Calcium 6.6 L Ionized Calcium Phosphorus Magnesium 1.40 L Direct Bilirubin 0.9 H AST ALT Alkaline Phosphatase Lactate Dehydrogenase Troponin T C-Reactive Protein Total Protein 4.3 L Albumin 1.3 L Prealbumin Triglycerides Cholesterol LDL Cholesterol Direct HDL Cholesterol 25-OH Vitamin D Total PTH Intact Urine pH Urine WBC (Auto) Urine Creatinine Urine Total Protein Fluid Total Protein Vancomycin Trough Rheumatoid Factor Complement C4 Miscellaneous Test Crossmatch 09/29/16 09/29/16 09/30/16 17:52 20:12 00:07 WBC RBC Hgb Hct MCV MCH MCHC RDW Plt Count Lymph % (Auto) [place] % (Auto) Lymph # [place] # Baso # Seg Neutrophils % Seg Neuts % (Manual) Lymphocytes % (Manual) Monocytes % (Manual) Eosinophils % (Manual) Basophils % (Manual) Nucleated RBC % Seg Neutrophils # Seg Neutrophils # Man Lymphocytes # (Manual) Monocytes # (Manual) Eosinophils # (Manual) Basophils # (Manual) PT INR Fibrinogen dRVVT Confirm Interp Factor V Activity POC ABG pH POC ABG pCO2 POC ABG pO2 ABG pO2 ABG HCO3 ABG Base Excess ABG Hemoglobin Oxyhemoglobin Sodium Potassium Chloride Carbon Dioxide BUN Creatinine Glucose POC Glucose 50 L 51 L Lactic Acid Calcium Ionized Calcium Phosphorus Magnesium Direct Bilirubin AST ALT Alkaline Phosphatase Lactate Dehydrogenase Troponin T 0.204 H* C-Reactive Protein Total Protein Albumin Prealbumin Triglycerides Cholesterol 31 L LDL Cholesterol Direct 4 L HDL Cholesterol 3 L 25-OH Vitamin D Total PTH Intact Urine pH Urine WBC (Auto) Urine Creatinine Urine Total Protein Fluid Total Protein Vancomycin Trough Rheumatoid Factor Complement C4 Miscellaneous Test Crossmatch 09/30/16 09/30/16 09/30/16 01:30 05:15 06:10 WBC RBC Hgb Hct MCV MCH MCHC RDW Plt Count Lymph % (Auto) [place] % (Auto) Lymph # [place] # Baso # Seg Neutrophils % Seg Neuts % (Manual) Lymphocytes % (Manual) Monocytes % (Manual) Eosinophils % (Manual) Basophils % (Manual) Nucleated RBC % Seg Neutrophils # Seg Neutrophils # Man Lymphocytes # (Manual) Monocytes # (Manual) Eosinophils # (Manual) Basophils # (Manual) PT INR Fibrinogen dRVVT Confirm Interp Factor V Activity POC ABG pH POC ABG pCO2 POC ABG pO2 ABG pO2 ABG HCO3 ABG Base Excess ABG Hemoglobin Oxyhemoglobin Sodium 133 L Potassium 3.2 L Chloride 93.2 L Carbon Dioxide 19 L BUN 36 H Creatinine 3.2 H Glucose 104 H POC Glucose 167 H 146 H Lactic Acid Calcium 6.4 L Ionized Calcium Phosphorus Magnesium 1.60 L Direct Bilirubin AST ALT Alkaline Phosphatase Lactate Dehydrogenase Troponin T C-Reactive Protein Total Protein Albumin Prealbumin Triglycerides Cholesterol LDL Cholesterol Direct HDL Cholesterol 25-OH Vitamin D Total PTH Intact Urine pH Urine WBC (Auto) Urine Creatinine Urine Total Protein Fluid Total Protein Vancomycin Trough Rheumatoid Factor Complement C4 Miscellaneous Test Crossmatch 09/30/16 09/30/16 09/30/16 11:26 13:39 18:38 WBC RBC Hgb Hct MCV MCH MCHC RDW Plt Count Lymph % (Auto) [place] % (Auto) Lymph # [place] # Baso # Seg Neutrophils % Seg Neuts % (Manual) Lymphocytes % (Manual) Monocytes % (Manual) Eosinophils % (Manual) Basophils % (Manual) Nucleated RBC % Seg Neutrophils # Seg Neutrophils # Man Lymphocytes # (Manual) Monocytes # (Manual) Eosinophils # (Manual) Basophils # (Manual) PT INR Fibrinogen dRVVT Confirm Interp Factor V Activity POC ABG pH 7.479 H POC ABG pCO2 29.8 L POC ABG pO2 117 H ABG pO2 ABG HCO3 ABG Base Excess ABG Hemoglobin Oxyhemoglobin Sodium Potassium Chloride Carbon Dioxide BUN Creatinine Glucose POC Glucose 140 H 122 H Lactic Acid Calcium Ionized Calcium Phosphorus Magnesium Direct Bilirubin AST ALT Alkaline Phosphatase Lactate Dehydrogenase Troponin T C-Reactive Protein Total Protein Albumin Prealbumin Triglycerides Cholesterol LDL Cholesterol Direct HDL Cholesterol 25-OH Vitamin D Total PTH Intact Urine pH Urine WBC (Auto) Urine Creatinine Urine Total Protein Fluid Total Protein Vancomycin Trough Rheumatoid Factor Complement C4 Miscellaneous Test Crossmatch 10/01/16 10/01/16 10/01/16 06:00 06:00 12:37 WBC 12.6 H RBC 2.75 L Hgb 7.3 L Hct 23.3 L MCV MCH 27 L MCHC RDW 20.6 H Plt Count 72 L Lymph % (Auto) [place] % (Auto) Lymph # [place] # Baso # Seg Neutrophils % Seg Neuts % (Manual) 31.0 L Lymphocytes % (Manual) 8.0 L Monocytes % (Manual) Eosinophils % (Manual) Basophils % (Manual) Nucleated RBC % 3.0 H Seg Neutrophils # Seg Neutrophils # Man Lymphocytes # (Manual) 1.0 L Monocytes # (Manual) Eosinophils # (Manual) Basophils # (Manual) PT INR Fibrinogen dRVVT Confirm Interp Factor V Activity POC ABG pH POC ABG pCO2 POC ABG pO2 ABG pO2 ABG HCO3 ABG Base Excess ABG Hemoglobin Oxyhemoglobin Sodium 127 L Potassium Chloride 86.8 L Carbon Dioxide 20 L BUN 42 H Creatinine 3.5 H Glucose POC Glucose 65 L Lactic Acid Calcium 7.0 L Ionized Calcium Phosphorus Magnesium Direct Bilirubin AST ALT Alkaline Phosphatase Lactate Dehydrogenase Troponin T C-Reactive Protein Total Protein Albumin Prealbumin Triglycerides Cholesterol LDL Cholesterol Direct HDL Cholesterol 25-OH Vitamin D Total PTH Intact Urine pH Urine WBC (Auto) Urine Creatinine Urine Total Protein Fluid Total Protein Vancomycin Trough Rheumatoid Factor Complement C4 Miscellaneous Test Crossmatch 10/01/16 10/01/16 10/02/16 17:39 23:32 00:59 WBC RBC Hgb Hct MCV MCH MCHC RDW Plt Count Lymph % (Auto) [place] % (Auto) Lymph # [place] # Baso # Seg Neutrophils % Seg Neuts % (Manual) Lymphocytes % (Manual) Monocytes % (Manual) Eosinophils % (Manual) Basophils % (Manual) Nucleated RBC % Seg Neutrophils # Seg Neutrophils # Man Lymphocytes # (Manual) Monocytes # (Manual) Eosinophils # (Manual) Basophils # (Manual) PT INR Fibrinogen dRVVT Confirm Interp Factor V Activity POC ABG pH POC ABG pCO2 POC ABG pO2 ABG pO2 ABG HCO3 ABG Base Excess ABG Hemoglobin Oxyhemoglobin Sodium Potassium Chloride Carbon Dioxide BUN Creatinine Glucose POC Glucose 107 H 52 L 145 H Lactic Acid Calcium Ionized Calcium Phosphorus Magnesium Direct Bilirubin AST ALT Alkaline Phosphatase Lactate Dehydrogenase Troponin T C-Reactive Protein Total Protein Albumin Prealbumin Triglycerides Cholesterol LDL Cholesterol Direct HDL Cholesterol 25-OH Vitamin D Total PTH Intact Urine pH Urine WBC (Auto) Urine Creatinine Urine Total Protein Fluid Total Protein Vancomycin Trough Rheumatoid Factor Complement C4 Miscellaneous Test Crossmatch 10/02/16 10/02/16 10/02/16 10:30 10:50 10:50 WBC 14.7 H RBC 2.76 L Hgb 7.4 L Hct 23.6 L MCV MCH 27 L MCHC RDW 20.2 H Plt Count 79 L Lymph % (Auto) [place] % (Auto) Lymph # [place] # Baso # Seg Neutrophils % Seg Neuts % (Manual) 86.0 H Lymphocytes % (Manual) 6.0 L Monocytes % (Manual) Eosinophils % (Manual) Basophils % (Manual) Nucleated RBC % Seg Neutrophils # Seg Neutrophils # Man 12.6 H Lymphocytes # (Manual) 0.9 L Monocytes # (Manual) Eosinophils # (Manual) Basophils # (Manual) PT INR Fibrinogen dRVVT Confirm Interp Factor V Activity POC ABG pH 7.486 H POC ABG pCO2 30.1 L POC ABG pO2 108 H ABG pO2 ABG HCO3 ABG Base Excess ABG Hemoglobin Oxyhemoglobin Sodium 131 L Potassium 3.4 L Chloride 89.9 L Carbon Dioxide BUN 26 H Creatinine 2.6 H Glucose POC Glucose Lactic Acid Calcium 7.0 L Ionized Calcium Phosphorus Magnesium Direct Bilirubin AST ALT Alkaline Phosphatase Lactate Dehydrogenase Troponin T C-Reactive Protein Total Protein Albumin Prealbumin Triglycerides Cholesterol LDL Cholesterol Direct HDL Cholesterol 25-OH Vitamin D Total PTH Intact Urine pH Urine WBC (Auto) Urine Creatinine Urine Total Protein Fluid Total Protein Vancomycin Trough Rheumatoid Factor Complement C4 Miscellaneous Test Crossmatch 10/02/16 10/03/16 10/03/16 23:45 00:45 05:10 WBC 12.9 H RBC 2.77 L Hgb 7.6 L Hct 23.7 L MCV MCH 27 L MCHC RDW 19.7 H Plt Count 89 L Lymph % (Auto) [place] % (Auto) Lymph # [place] # Baso # Seg Neutrophils % Seg Neuts % (Manual) Lymphocytes % (Manual) 8.0 L Monocytes % (Manual) Eosinophils % (Manual) Basophils % (Manual) Nucleated RBC % Seg Neutrophils # 11.9 H Seg Neutrophils # Man Lymphocytes # (Manual) 1.0 L Monocytes # (Manual) Eosinophils # (Manual) Basophils # (Manual) PT INR Fibrinogen dRVVT Confirm Interp Factor V Activity POC ABG pH POC ABG pCO2 POC ABG pO2 ABG pO2 ABG HCO3 ABG Base Excess ABG Hemoglobin Oxyhemoglobin Sodium Potassium Chloride Carbon Dioxide BUN Creatinine Glucose POC Glucose 55 L 199 H Lactic Acid Calcium Ionized Calcium Phosphorus Magnesium Direct Bilirubin AST ALT Alkaline Phosphatase Lactate Dehydrogenase Troponin T C-Reactive Protein Total Protein Albumin Prealbumin Triglycerides Cholesterol LDL Cholesterol Direct HDL Cholesterol 25-OH Vitamin D Total PTH Intact Urine pH Urine WBC (Auto) Urine Creatinine Urine Total Protein Fluid Total Protein Vancomycin Trough Rheumatoid Factor Complement C4 Miscellaneous Test Crossmatch 10/03/16 10/03/16 10/03/16 05:10 12:14 13:18 WBC RBC Hgb Hct MCV MCH MCHC RDW Plt Count Lymph % (Auto) [place] % (Auto) Lymph # [place] # Baso # Seg Neutrophils % Seg Neuts % (Manual) Lymphocytes % (Manual) Monocytes % (Manual) Eosinophils % (Manual) Basophils % (Manual) Nucleated RBC % Seg Neutrophils # Seg Neutrophils # Man Lymphocytes # (Manual) Monocytes # (Manual) Eosinophils # (Manual) Basophils # (Manual) PT INR Fibrinogen dRVVT Confirm Interp Factor V Activity POC ABG pH POC ABG pCO2 POC ABG pO2 ABG pO2 ABG HCO3 ABG Base Excess ABG Hemoglobin Oxyhemoglobin Sodium 129 L Potassium 3.3 L Chloride 88.8 L Carbon Dioxide 20 L BUN 29 H Creatinine 2.8 H Glucose POC Glucose 68 L 127 H Lactic Acid Calcium 7.2 L Ionized Calcium Phosphorus Magnesium Direct Bilirubin AST ALT Alkaline Phosphatase Lactate Dehydrogenase Troponin T C-Reactive Protein Total Protein Albumin Prealbumin Triglycerides Cholesterol LDL Cholesterol Direct HDL Cholesterol 25-OH Vitamin D Total PTH Intact Urine pH Urine WBC (Auto) Urine Creatinine Urine Total Protein Fluid Total Protein Vancomycin Trough Rheumatoid Factor Complement C4 Miscellaneous Test Crossmatch 10/03/16 10/03/16 10/03/16 14:42 18:21 19:09 WBC RBC Hgb Hct MCV MCH MCHC RDW Plt Count Lymph % (Auto) [place] % (Auto) Lymph # [place] # Baso # Seg Neutrophils % Seg Neuts % (Manual) Lymphocytes % (Manual) Monocytes % (Manual) Eosinophils % (Manual) Basophils % (Manual) Nucleated RBC % Seg Neutrophils # Seg Neutrophils # Man Lymphocytes # (Manual) Monocytes # (Manual) Eosinophils # (Manual) Basophils # (Manual) PT INR Fibrinogen dRVVT Confirm Interp Factor V Activity POC ABG pH 7.499 H POC ABG pCO2 28.4 L POC ABG pO2 44 L ABG pO2 ABG HCO3 ABG Base Excess ABG Hemoglobin Oxyhemoglobin Sodium Potassium Chloride Carbon Dioxide BUN Creatinine Glucose POC Glucose 64 L 205 H Lactic Acid Calcium Ionized Calcium Phosphorus Magnesium Direct Bilirubin AST ALT Alkaline Phosphatase Lactate Dehydrogenase Troponin T C-Reactive Protein Total Protein Albumin Prealbumin Triglycerides Cholesterol LDL Cholesterol Direct HDL Cholesterol 25-OH Vitamin D Total PTH Intact Urine pH Urine WBC (Auto) Urine Creatinine Urine Total Protein Fluid Total Protein Vancomycin Trough Rheumatoid Factor Complement C4 Miscellaneous Test Crossmatch 10/03/16 10/04/16 10/04/16 23:33 04:18 06:30 WBC RBC 2.54 L Hgb 7.1 L Hct 21.7 L MCV MCH MCHC RDW 19.5 H Plt Count 76 L Lymph % (Auto) [place] % (Auto) Lymph # [place] # Baso # Seg Neutrophils % Seg Neuts % (Manual) 88.0 H Lymphocytes % (Manual) 6.0 L Monocytes % (Manual) Eosinophils % (Manual) Basophils % (Manual) Nucleated RBC % Seg Neutrophils # Seg Neutrophils # Man 8.8 H Lymphocytes # (Manual) 0.6 L Monocytes # (Manual) Eosinophils # (Manual) Basophils # (Manual) PT INR Fibrinogen dRVVT Confirm Interp Factor V Activity POC ABG pH 7.461 H POC ABG pCO2 33.6 L POC ABG pO2 211 H ABG pO2 ABG HCO3 ABG Base Excess ABG Hemoglobin Oxyhemoglobin Sodium Potassium Chloride Carbon Dioxide BUN Creatinine Glucose POC Glucose 136 H Lactic Acid Calcium Ionized Calcium Phosphorus Magnesium Direct Bilirubin AST ALT Alkaline Phosphatase Lactate Dehydrogenase Troponin T C-Reactive Protein Total Protein Albumin Prealbumin Triglycerides Cholesterol LDL Cholesterol Direct HDL Cholesterol 25-OH Vitamin D Total PTH Intact Urine pH Urine WBC (Auto) Urine Creatinine Urine Total Protein Fluid Total Protein Vancomycin Trough Rheumatoid Factor Complement C4 Miscellaneous Test Crossmatch 10/04/16 10/04/16 10/04/16 06:30 11:45 17:54 WBC RBC Hgb Hct MCV MCH MCHC RDW Plt Count Lymph % (Auto) [place] % (Auto) Lymph # [place] # Baso # Seg Neutrophils % Seg Neuts % (Manual) Lymphocytes % (Manual) Monocytes % (Manual) Eosinophils % (Manual) Basophils % (Manual) Nucleated RBC % Seg Neutrophils # Seg Neutrophils # Man Lymphocytes # (Manual) Monocytes # (Manual) Eosinophils # (Manual) Basophils # (Manual) PT INR Fibrinogen dRVVT Confirm Interp Factor V Activity POC ABG pH POC ABG pCO2 POC ABG pO2 ABG pO2 ABG HCO3 ABG Base Excess ABG Hemoglobin Oxyhemoglobin Sodium 128 L Potassium Chloride 87.4 L Carbon Dioxide 20 L BUN 34 H Creatinine 2.9 H Glucose 127 H POC Glucose 158 H 160 H Lactic Acid Calcium 7.4 L Ionized Calcium Phosphorus Magnesium Direct Bilirubin AST ALT Alkaline Phosphatase Lactate Dehydrogenase Troponin T C-Reactive Protein Total Protein Albumin Prealbumin Triglycerides Cholesterol LDL Cholesterol Direct HDL Cholesterol 25-OH Vitamin D Total PTH Intact Urine pH Urine WBC (Auto) Urine Creatinine Urine Total Protein Fluid Total Protein Vancomycin Trough Rheumatoid Factor Complement C4 Miscellaneous Test Crossmatch 10/04/16 10/05/16 10/05/16 23:25 04:30 05:00 WBC RBC 2.64 L Hgb 7.5 L Hct 22.6 L MCV MCH MCHC RDW 19.3 H Plt Count 80 L Lymph % (Auto) [place] % (Auto) Lymph # [place] # Baso # Seg Neutrophils % Seg Neuts % (Manual) Lymphocytes % (Manual) 12.0 L Monocytes % (Manual) Eosinophils % (Manual) Basophils % (Manual) Nucleated RBC % Seg Neutrophils # Seg Neutrophils # Man Lymphocytes # (Manual) Monocytes # (Manual) Eosinophils # (Manual) Basophils # (Manual) PT INR Fibrinogen dRVVT Confirm Interp Factor V Activity POC ABG pH 7.475 H POC ABG pCO2 33.3 L POC ABG pO2 140 H ABG pO2 ABG HCO3 ABG Base Excess ABG Hemoglobin Oxyhemoglobin Sodium Potassium Chloride Carbon Dioxide BUN Creatinine Glucose POC Glucose 141 H Lactic Acid Calcium Ionized Calcium Phosphorus Magnesium Direct Bilirubin AST ALT Alkaline Phosphatase Lactate Dehydrogenase Troponin T C-Reactive Protein Total Protein Albumin Prealbumin Triglycerides Cholesterol LDL Cholesterol Direct HDL Cholesterol 25-OH Vitamin D Total PTH Intact Urine pH Urine WBC (Auto) Urine Creatinine Urine Total Protein Fluid Total Protein Vancomycin Trough Rheumatoid Factor Complement C4 Miscellaneous Test Crossmatch 10/05/16 10/05/16 10/05/16 05:00 05:09 12:58 WBC RBC Hgb Hct MCV MCH MCHC RDW Plt Count Lymph % (Auto) [place] % (Auto) Lymph # [place] # Baso # Seg Neutrophils % Seg Neuts % (Manual) Lymphocytes % (Manual) Monocytes % (Manual) Eosinophils % (Manual) Basophils % (Manual) Nucleated RBC % Seg Neutrophils # Seg Neutrophils # Man Lymphocytes # (Manual) Monocytes # (Manual) Eosinophils # (Manual) Basophils # (Manual) PT INR Fibrinogen dRVVT Confirm Interp Factor V Activity POC ABG pH POC ABG pCO2 POC ABG pO2 ABG pO2 ABG HCO3 ABG Base Excess ABG Hemoglobin Oxyhemoglobin Sodium 131 L Potassium Chloride 94.0 L Carbon Dioxide 20 L BUN 22 H Creatinine 2.0 H Glucose 123 H POC Glucose 166 H 179 H Lactic Acid Calcium 7.7 L Ionized Calcium Phosphorus 2.20 L D Magnesium Direct Bilirubin AST ALT Alkaline Phosphatase Lactate Dehydrogenase Troponin T C-Reactive Protein Total Protein Albumin Prealbumin Triglycerides Cholesterol LDL Cholesterol Direct HDL Cholesterol 25-OH Vitamin D Total PTH Intact Urine pH Urine WBC (Auto) Urine Creatinine Urine Total Protein Fluid Total Protein Vancomycin Trough Rheumatoid Factor Complement C4 Miscellaneous Test Crossmatch 10/05/16 10/05/16 10/05/16 15:50 18:53 23:12 WBC RBC Hgb Hct MCV MCH MCHC RDW Plt Count Lymph % (Auto) [place] % (Auto) Lymph # [place] # Baso # Seg Neutrophils % Seg Neuts % (Manual) Lymphocytes % (Manual) Monocytes % (Manual) Eosinophils % (Manual) Basophils % (Manual) Nucleated RBC % Seg Neutrophils # Seg Neutrophils # Man Lymphocytes # (Manual) Monocytes # (Manual) Eosinophils # (Manual) Basophils # (Manual) PT INR Fibrinogen dRVVT Confirm Interp Factor V Activity POC ABG pH POC ABG pCO2 POC ABG pO2 ABG pO2 ABG HCO3 ABG Base Excess ABG Hemoglobin Oxyhemoglobin Sodium Potassium Chloride Carbon Dioxide BUN Creatinine Glucose POC Glucose 150 H 164 H Lactic Acid Calcium Ionized Calcium Phosphorus Magnesium Direct Bilirubin AST ALT Alkaline Phosphatase Lactate Dehydrogenase Troponin T C-Reactive Protein Total Protein Albumin Prealbumin Triglycerides Cholesterol LDL Cholesterol Direct HDL Cholesterol 25-OH Vitamin D Total PTH Intact Urine pH Urine WBC (Auto) Urine Creatinine Urine Total Protein Fluid Total Protein Vancomycin Trough Rheumatoid Factor Complement C4 Miscellaneous Test Crossmatch See Detail 10/06/16 10/06/16 10/06/16 03:50 03:50 04:53 WBC RBC 3.00 L Hgb 8.6 L Hct 25.8 L MCV MCH MCHC RDW 17.9 H Plt Count 65 L Lymph % (Auto) [place] % (Auto) Lymph # [place] # Baso # Seg Neutrophils % Seg Neuts % (Manual) 30.0 L Lymphocytes % (Manual) 5.0 L Monocytes % (Manual) Eosinophils % (Manual) Basophils % (Manual) Nucleated RBC % Seg Neutrophils # Seg Neutrophils # Man Lymphocytes # (Manual) 0.4 L Monocytes # (Manual) Eosinophils # (Manual) Basophils # (Manual) PT INR Fibrinogen dRVVT Confirm Interp Factor V Activity POC ABG pH 7.310 L POC ABG pCO2 49.0 H POC ABG pO2 ABG pO2 ABG HCO3 ABG Base Excess ABG Hemoglobin Oxyhemoglobin Sodium 133 L Potassium Chloride 95.9 L Carbon Dioxide BUN 26 H Creatinine 2.0 H Glucose 116 H POC Glucose Lactic Acid Calcium 7.8 L Ionized Calcium Phosphorus Magnesium Direct Bilirubin AST ALT Alkaline Phosphatase Lactate Dehydrogenase Troponin T C-Reactive Protein Total Protein Albumin Prealbumin Triglycerides Cholesterol LDL Cholesterol Direct HDL Cholesterol 25-OH Vitamin D Total PTH Intact Urine pH Urine WBC (Auto) Urine Creatinine Urine Total Protein Fluid Total Protein Vancomycin Trough Rheumatoid Factor Complement C4 Miscellaneous Test Crossmatch 10/06/16 10/06/16 10/06/16 05:23 11:52 18:34 WBC RBC Hgb Hct MCV MCH MCHC RDW Plt Count Lymph % (Auto) [place] % (Auto) Lymph # [place] # Baso # Seg Neutrophils % Seg Neuts % (Manual) Lymphocytes % (Manual) Monocytes % (Manual) Eosinophils % (Manual) Basophils % (Manual) Nucleated RBC % Seg Neutrophils # Seg Neutrophils # Man Lymphocytes # (Manual) Monocytes # (Manual) Eosinophils # (Manual) Basophils # (Manual) PT INR Fibrinogen dRVVT Confirm Interp Factor V Activity POC ABG pH POC ABG pCO2 POC ABG pO2 ABG pO2 ABG HCO3 ABG Base Excess ABG Hemoglobin Oxyhemoglobin Sodium Potassium Chloride Carbon Dioxide BUN Creatinine Glucose POC Glucose 126 H 116 H 129 H Lactic Acid Calcium Ionized Calcium Phosphorus Magnesium Direct Bilirubin AST ALT Alkaline Phosphatase Lactate Dehydrogenase Troponin T C-Reactive Protein Total Protein Albumin Prealbumin Triglycerides Cholesterol LDL Cholesterol Direct HDL Cholesterol 25-OH Vitamin D Total PTH Intact Urine pH Urine WBC (Auto) Urine Creatinine Urine Total Protein Fluid Total Protein Vancomycin Trough Rheumatoid Factor Complement C4 Miscellaneous Test Crossmatch 10/07/16 10/07/16 10/07/16 03:45 05:00 10:00 WBC 17.0 H RBC 2.68 L Hgb 7.3 L Hct 25.3 L MCV MCH 27 L MCHC 29 L RDW 19.6 H Plt Count 74 L Lymph % (Auto) [place] % (Auto) Lymph # [place] # Baso # Seg Neutrophils % Seg Neuts % (Manual) Lymphocytes % (Manual) 12.0 L Monocytes % (Manual) Eosinophils % (Manual) Basophils % (Manual) Nucleated RBC % 4.0 H Seg Neutrophils # Seg Neutrophils # Man 10.7 H Lymphocytes # (Manual) Monocytes # (Manual) Eosinophils # (Manual) Basophils # (Manual) PT INR Fibrinogen dRVVT Confirm Interp Factor V Activity POC ABG pH POC ABG pCO2 POC ABG pO2 ABG pO2 ABG HCO3 ABG Base Excess ABG Hemoglobin Oxyhemoglobin Sodium 130 L Potassium 3.2 L Chloride 93.9 L Carbon Dioxide 20 L BUN 44 H Creatinine 2.7 H Glucose 129 H POC Glucose Lactic Acid Calcium 7.4 L Ionized Calcium Phosphorus Magnesium Direct Bilirubin AST ALT 6 L Alkaline Phosphatase 195 H Lactate Dehydrogenase Troponin T C-Reactive Protein Total Protein 4.9 L Albumin 1.0 L Prealbumin Triglycerides Cholesterol LDL Cholesterol Direct HDL Cholesterol 25-OH Vitamin D Total PTH Intact Urine pH Urine WBC (Auto) Urine Creatinine Urine Total Protein Fluid Total Protein Vancomycin Trough Rheumatoid Factor Complement C4 Miscellaneous Test Flexitest 1 H Crossmatch 10/07/16 10/07/16 10/07/16 10:00 11:24 18:10 WBC RBC Hgb Hct MCV MCH MCHC RDW Plt Count Lymph % (Auto) [place] % (Auto) Lymph # [place] # Baso # Seg Neutrophils % Seg Neuts % (Manual) Lymphocytes % (Manual) Monocytes % (Manual) Eosinophils % (Manual) Basophils % (Manual) Nucleated RBC % Seg Neutrophils # Seg Neutrophils # Man Lymphocytes # (Manual) Monocytes # (Manual) Eosinophils # (Manual) Basophils # (Manual) PT INR Fibrinogen dRVVT Confirm Interp Factor V Activity POC ABG pH POC ABG pCO2 POC ABG pO2 ABG pO2 ABG HCO3 ABG Base Excess ABG Hemoglobin Oxyhemoglobin Sodium Potassium Chloride Carbon Dioxide BUN Creatinine Glucose POC Glucose 116 H 130 H Lactic Acid Calcium Ionized Calcium Phosphorus Magnesium Direct Bilirubin AST ALT Alkaline Phosphatase Lactate Dehydrogenase Troponin T C-Reactive Protein 19.40 H Total Protein Albumin Prealbumin Triglycerides Cholesterol LDL Cholesterol Direct HDL Cholesterol 25-OH Vitamin D Total PTH Intact Urine pH Urine WBC (Auto) Urine Creatinine Urine Total Protein Fluid Total Protein Vancomycin Trough Rheumatoid Factor Complement C4 Miscellaneous Test Crossmatch 10/07/16 10/08/16 10/08/16 18:30 00:00 04:00 WBC RBC Hgb Hct MCV MCH MCHC RDW Plt Count Lymph % (Auto) [place] % (Auto) Lymph # [place] # Baso # Seg Neutrophils % Seg Neuts % (Manual) Lymphocytes % (Manual) Monocytes % (Manual) Eosinophils % (Manual) Basophils % (Manual) Nucleated RBC % Seg Neutrophils # Seg Neutrophils # Man Lymphocytes # (Manual) Monocytes # (Manual) Eosinophils # (Manual) Basophils # (Manual) PT INR Fibrinogen dRVVT Confirm Interp Factor V Activity POC ABG pH POC ABG pCO2 POC ABG pO2 ABG pO2 ABG HCO3 ABG Base Excess ABG Hemoglobin Oxyhemoglobin Sodium 132 L Potassium 3.3 L Chloride 93.6 L Carbon Dioxide 17 L BUN 59 H Creatinine 2.7 H Glucose 121 H POC Glucose 122 H Lactic Acid Calcium 7.6 L Ionized Calcium Phosphorus Magnesium Direct Bilirubin AST ALT Alkaline Phosphatase Lactate Dehydrogenase Troponin T C-Reactive Protein Total Protein Albumin Prealbumin Triglycerides Cholesterol LDL Cholesterol Direct HDL Cholesterol 25-OH Vitamin D Total PTH Intact Urine pH Urine WBC (Auto) > 182.0 H Urine Creatinine Urine Total Protein Fluid Total Protein Vancomycin Trough Rheumatoid Factor Complement C4 Miscellaneous Test Crossmatch 10/08/16 10/08/16 10/08/16 04:30 05:30 11:51 WBC RBC 5.15 H Hgb 14.4 H D Hct 44.5 H D MCV MCH MCHC RDW 19.5 H Plt Count 56 L Lymph % (Auto) [place] % (Auto) Lymph # [place] # Baso # Seg Neutrophils % Seg Neuts % (Manual) 24.0 L Lymphocytes % (Manual) 8.0 L Monocytes % (Manual) Eosinophils % (Manual) Basophils % (Manual) Nucleated RBC % 9.0 H Seg Neutrophils # Seg Neutrophils # Man Lymphocytes # (Manual) 0.7 L Monocytes # (Manual) Eosinophils # (Manual) Basophils # (Manual) PT INR Fibrinogen dRVVT Confirm Interp Factor V Activity POC ABG pH POC ABG pCO2 POC ABG pO2 ABG pO2 ABG HCO3 ABG Base Excess ABG Hemoglobin Oxyhemoglobin Sodium Potassium Chloride Carbon Dioxide BUN Creatinine Glucose POC Glucose 125 H 150 H Lactic Acid Calcium Ionized Calcium Phosphorus Magnesium Direct Bilirubin AST ALT Alkaline Phosphatase Lactate Dehydrogenase Troponin T C-Reactive Protein Total Protein Albumin Prealbumin Triglycerides Cholesterol LDL Cholesterol Direct HDL Cholesterol 25-OH Vitamin D Total PTH Intact Urine pH Urine WBC (Auto) Urine Creatinine Urine Total Protein Fluid Total Protein Vancomycin Trough Rheumatoid Factor Complement C4 Miscellaneous Test Crossmatch 10/08/16 10/08/16 10/08/16 12:49 17:07 19:30 WBC RBC Hgb 7.1 L D Hct 22.4 L D MCV MCH MCHC RDW Plt Count Lymph % (Auto) [place] % (Auto) Lymph # [place] # Baso # Seg Neutrophils % Seg Neuts % (Manual) Lymphocytes % (Manual) Monocytes % (Manual) Eosinophils % (Manual) Basophils % (Manual) Nucleated RBC % Seg Neutrophils # Seg Neutrophils # Man Lymphocytes # (Manual) Monocytes # (Manual) Eosinophils # (Manual) Basophils # (Manual) PT INR Fibrinogen dRVVT Confirm Interp Factor V Activity POC ABG pH POC ABG pCO2 28.2 L POC ABG pO2 111 H ABG pO2 ABG HCO3 ABG Base Excess ABG Hemoglobin Oxyhemoglobin Sodium Potassium Chloride Carbon Dioxide BUN Creatinine Glucose POC Glucose 145 H Lactic Acid Calcium Ionized Calcium Phosphorus Magnesium Direct Bilirubin AST ALT Alkaline Phosphatase Lactate Dehydrogenase Troponin T C-Reactive Protein Total Protein Albumin Prealbumin Triglycerides Cholesterol LDL Cholesterol Direct HDL Cholesterol 25-OH Vitamin D Total PTH Intact Urine pH Urine WBC (Auto) Urine Creatinine Urine Total Protein Fluid Total Protein Vancomycin Trough Rheumatoid Factor Complement C4 Miscellaneous Test Crossmatch 10/08/16 10/09/16 10/09/16 19:30 03:45 03:45 WBC 12.6 H RBC 2.36 L Hgb 6.7 L Hct 21.1 L MCV MCH MCHC RDW 19.5 H Plt Count 75 L Lymph % (Auto) [place] % (Auto) Lymph # [place] # Baso # Seg Neutrophils % Seg Neuts % (Manual) Lymphocytes % (Manual) Monocytes % (Manual) 10.0 H Eosinophils % (Manual) Basophils % (Manual) Nucleated RBC % 3.0 H Seg Neutrophils # Seg Neutrophils # Man Lymphocytes # (Manual) Monocytes # (Manual) 1.3 H Eosinophils # (Manual) Basophils # (Manual) PT 18.0 H INR 1.41 H Fibrinogen dRVVT Confirm Interp Factor V Activity POC ABG pH POC ABG pCO2 POC ABG pO2 ABG pO2 ABG HCO3 ABG Base Excess ABG Hemoglobin Oxyhemoglobin Sodium 135 L Potassium Chloride Carbon Dioxide 17 L BUN 81 H Creatinine 3.2 H Glucose 109 H POC Glucose Lactic Acid Calcium 7.4 L Ionized Calcium Phosphorus 4.60 H D Magnesium Direct Bilirubin AST ALT Alkaline Phosphatase Lactate Dehydrogenase Troponin T C-Reactive Protein Total Protein Albumin Prealbumin Triglycerides Cholesterol LDL Cholesterol Direct HDL Cholesterol 25-OH Vitamin D Total PTH Intact Urine pH Urine WBC (Auto) Urine Creatinine Urine Total Protein Fluid Total Protein Vancomycin Trough Rheumatoid Factor Complement C4 Miscellaneous Test Crossmatch 10/09/16 10/09/16 10/09/16 03:45 05:14 07:20 WBC RBC Hgb Hct MCV MCH MCHC RDW Plt Count Lymph % (Auto) [place] % (Auto) Lymph # [place] # Baso # Seg Neutrophils % Seg Neuts % (Manual) Lymphocytes % (Manual) Monocytes % (Manual) Eosinophils % (Manual) Basophils % (Manual) Nucleated RBC % Seg Neutrophils # Seg Neutrophils # Man Lymphocytes # (Manual) Monocytes # (Manual) Eosinophils # (Manual) Basophils # (Manual) PT 19.0 H INR 1.51 H Fibrinogen dRVVT Confirm Interp Factor V Activity POC ABG pH POC ABG pCO2 POC ABG pO2 ABG pO2 ABG HCO3 ABG Base Excess ABG Hemoglobin Oxyhemoglobin Sodium Potassium Chloride Carbon Dioxide BUN Creatinine Glucose POC Glucose 151 H Lactic Acid Calcium Ionized Calcium Phosphorus Magnesium Direct Bilirubin AST ALT Alkaline Phosphatase Lactate Dehydrogenase Troponin T C-Reactive Protein Total Protein Albumin Prealbumin Triglycerides Cholesterol LDL Cholesterol Direct HDL Cholesterol 25-OH Vitamin D Total PTH Intact Urine pH Urine WBC (Auto) Urine Creatinine Urine Total Protein Fluid Total Protein Vancomycin Trough Rheumatoid Factor Complement C4 Miscellaneous Test Crossmatch See Detail 10/09/16 10/09/16 10/09/16 11:46 16:20 16:43 WBC RBC Hgb 7.2 L Hct 22.2 L MCV MCH MCHC RDW Plt Count Lymph % (Auto) [place] % (Auto) Lymph # [place] # Baso # Seg Neutrophils % Seg Neuts % (Manual) Lymphocytes % (Manual) Monocytes % (Manual) Eosinophils % (Manual) Basophils % (Manual) Nucleated RBC % Seg Neutrophils # Seg Neutrophils # Man Lymphocytes # (Manual) Monocytes # (Manual) Eosinophils # (Manual) Basophils # (Manual) PT INR Fibrinogen dRVVT Confirm Interp Factor V Activity POC ABG pH POC ABG pCO2 POC ABG pO2 ABG pO2 ABG HCO3 ABG Base Excess ABG Hemoglobin Oxyhemoglobin Sodium Potassium Chloride Carbon Dioxide BUN Creatinine Glucose POC Glucose 133 H 141 H Lactic Acid Calcium Ionized Calcium Phosphorus Magnesium Direct Bilirubin AST ALT Alkaline Phosphatase Lactate Dehydrogenase Troponin T C-Reactive Protein Total Protein Albumin Prealbumin Triglycerides Cholesterol LDL Cholesterol Direct HDL Cholesterol 25-OH Vitamin D Total PTH Intact Urine pH Urine WBC (Auto) Urine Creatinine Urine Total Protein Fluid Total Protein Vancomycin Trough Rheumatoid Factor Complement C4 Miscellaneous Test Crossmatch 10/10/16 10/10/16 10/10/16 05:00 05:00 11:19 WBC 18.5 H RBC 2.19 L Hgb 6.4 L Hct 19.6 L* MCV MCH MCHC RDW 19.3 H Plt Count 93 L Lymph % (Auto) [place] % (Auto) Lymph # [place] # Baso # Seg Neutrophils % Seg Neuts % (Manual) Lymphocytes % (Manual) 10.0 L Monocytes % (Manual) Eosinophils % (Manual) Basophils % (Manual) Nucleated RBC % 4.0 H Seg Neutrophils # Seg Neutrophils # Man 11.3 H Lymphocytes # (Manual) Monocytes # (Manual) Eosinophils # (Manual) Basophils # (Manual) PT INR Fibrinogen dRVVT Confirm Interp Factor V Activity POC ABG pH POC ABG pCO2 POC ABG pO2 ABG pO2 ABG HCO3 ABG Base Excess ABG Hemoglobin Oxyhemoglobin Sodium Potassium 5.7 H D Chloride Carbon Dioxide 16 L BUN 94 H Creatinine 3.1 H Glucose 131 H POC Glucose 153 H Lactic Acid Calcium 8.2 L Ionized Calcium Phosphorus 5.10 H Magnesium 2.40 H Direct Bilirubin 0.3 H AST ALT < 5 L Alkaline Phosphatase 319 H Lactate Dehydrogenase Troponin T C-Reactive Protein Total Protein 5.1 L Albumin 1.0 L Prealbumin Triglycerides Cholesterol LDL Cholesterol Direct HDL Cholesterol 25-OH Vitamin D Total PTH Intact Urine pH Urine WBC (Auto) Urine Creatinine Urine Total Protein Fluid Total Protein Vancomycin Trough Rheumatoid Factor Complement C4 Miscellaneous Test Crossmatch 10/10/16 10/10/16 10/11/16 17:50 23:30 04:15 WBC RBC Hgb Hct MCV MCH MCHC RDW Plt Count Lymph % (Auto) [place] % (Auto) Lymph # [place] # Baso # Seg Neutrophils % Seg Neuts % (Manual) Lymphocytes % (Manual) Monocytes % (Manual) Eosinophils % (Manual) Basophils % (Manual) Nucleated RBC % Seg Neutrophils # Seg Neutrophils # Man Lymphocytes # (Manual) Monocytes # (Manual) Eosinophils # (Manual) Basophils # (Manual) PT INR Fibrinogen dRVVT Confirm Interp Factor V Activity POC ABG pH POC ABG pCO2 POC ABG pO2 ABG pO2 ABG HCO3 ABG Base Excess ABG Hemoglobin Oxyhemoglobin Sodium Potassium Chloride 96.4 L Carbon Dioxide 21 L BUN 57 H Creatinine 2.1 H Glucose 151 H POC Glucose 146 H 141 H Lactic Acid Calcium 8.3 L Ionized Calcium Phosphorus Magnesium Direct Bilirubin AST ALT Alkaline Phosphatase Lactate Dehydrogenase Troponin T C-Reactive Protein Total Protein Albumin Prealbumin Triglycerides Cholesterol LDL Cholesterol Direct HDL Cholesterol 25-OH Vitamin D Total PTH Intact Urine pH Urine WBC (Auto) Urine Creatinine Urine Total Protein Fluid Total Protein Vancomycin Trough Rheumatoid Factor Complement C4 Miscellaneous Test Crossmatch 10/11/16 10/11/16 10/11/16 04:15 04:15 05:30 WBC 28.3 H RBC 3.12 L Hgb 9.3 L Hct 28.7 L D MCV MCH MCHC RDW 17.7 H Plt Count 128 L Lymph % (Auto) [place] % (Auto) Lymph # [place] # Baso # Seg Neutrophils % Seg Neuts % (Manual) Lymphocytes % (Manual) Monocytes % (Manual) Eosinophils % (Manual) Basophils % (Manual) Nucleated RBC % Seg Neutrophils # Seg Neutrophils # Man Lymphocytes # (Manual) Monocytes # (Manual) Eosinophils # (Manual) Basophils # (Manual) PT INR Fibrinogen dRVVT Confirm Interp Factor V Activity POC ABG pH POC ABG pCO2 POC ABG pO2 ABG pO2 ABG HCO3 ABG Base Excess ABG Hemoglobin Oxyhemoglobin Sodium Potassium Chloride Carbon Dioxide BUN Creatinine Glucose POC Glucose 167 H Lactic Acid Calcium Ionized Calcium Phosphorus Magnesium Direct Bilirubin AST ALT Alkaline Phosphatase Lactate Dehydrogenase Troponin T C-Reactive Protein 15.80 H Total Protein Albumin Prealbumin Triglycerides Cholesterol LDL Cholesterol Direct HDL Cholesterol 25-OH Vitamin D Total PTH Intact Urine pH Urine WBC (Auto) Urine Creatinine Urine Total Protein Fluid Total Protein Vancomycin Trough Rheumatoid Factor Complement C4 Miscellaneous Test Crossmatch 10/11/16 10/11/16 10/11/16 11:40 15:49 23:57 WBC RBC Hgb Hct MCV MCH MCHC RDW Plt Count Lymph % (Auto) [place] % (Auto) Lymph # [place] # Baso # Seg Neutrophils % Seg Neuts % (Manual) Lymphocytes % (Manual) Monocytes % (Manual) Eosinophils % (Manual) Basophils % (Manual) Nucleated RBC % Seg Neutrophils # Seg Neutrophils # Man Lymphocytes # (Manual) Monocytes # (Manual) Eosinophils # (Manual) Basophils # (Manual) PT INR Fibrinogen dRVVT Confirm Interp Factor V Activity POC ABG pH POC ABG pCO2 POC ABG pO2 ABG pO2 ABG HCO3 ABG Base Excess ABG Hemoglobin Oxyhemoglobin Sodium Potassium Chloride Carbon Dioxide BUN Creatinine Glucose POC Glucose 139 H 168 H 161 H Lactic Acid Calcium Ionized Calcium Phosphorus Magnesium Direct Bilirubin AST ALT Alkaline Phosphatase Lactate Dehydrogenase Troponin T C-Reactive Protein Total Protein Albumin Prealbumin Triglycerides Cholesterol LDL Cholesterol Direct HDL Cholesterol 25-OH Vitamin D Total PTH Intact Urine pH Urine WBC (Auto) Urine Creatinine Urine Total Protein Fluid Total Protein Vancomycin Trough Rheumatoid Factor Complement C4 Miscellaneous Test Crossmatch 10/12/16 10/12/16 10/12/16 04:40 04:40 05:44 WBC 22.5 H RBC 2.88 L Hgb 8.8 L Hct 26.8 L MCV MCH MCHC RDW 17.8 H Plt Count Lymph % (Auto) [place] % (Auto) Lymph # [place] # Baso # Seg Neutrophils % Seg Neuts % (Manual) Lymphocytes % (Manual) Monocytes % (Manual) Eosinophils % (Manual) Basophils % (Manual) Nucleated RBC % Seg Neutrophils # Seg Neutrophils # Man Lymphocytes # (Manual) Monocytes # (Manual) Eosinophils # (Manual) Basophils # (Manual) PT INR Fibrinogen dRVVT Confirm Interp Factor V Activity POC ABG pH POC ABG pCO2 POC ABG pO2 ABG pO2 ABG HCO3 ABG Base Excess ABG Hemoglobin Oxyhemoglobin Sodium 134 L Potassium Chloride 93.0 L Carbon Dioxide BUN 74 H Creatinine 2.5 H Glucose 137 H POC Glucose 158 H Lactic Acid Calcium 8.2 L Ionized Calcium Phosphorus Magnesium Direct Bilirubin AST ALT Alkaline Phosphatase Lactate Dehydrogenase Troponin T C-Reactive Protein Total Protein Albumin Prealbumin Triglycerides Cholesterol LDL Cholesterol Direct HDL Cholesterol 25-OH Vitamin D Total PTH Intact Urine pH Urine WBC (Auto) Urine Creatinine Urine Total Protein Fluid Total Protein Vancomycin Trough Rheumatoid Factor Complement C4 Miscellaneous Test Crossmatch 10/12/16 10/12/16 10/12/16 12:27 18:18 23:46 WBC RBC Hgb Hct MCV MCH MCHC RDW Plt Count Lymph % (Auto) [place] % (Auto) Lymph # [place] # Baso # Seg Neutrophils % Seg Neuts % (Manual) Lymphocytes % (Manual) Monocytes % (Manual) Eosinophils % (Manual) Basophils % (Manual) Nucleated RBC % Seg Neutrophils # Seg Neutrophils # Man Lymphocytes # (Manual) Monocytes # (Manual) Eosinophils # (Manual) Basophils # (Manual) PT INR Fibrinogen dRVVT Confirm Interp Factor V Activity POC ABG pH POC ABG pCO2 POC ABG pO2 ABG pO2 ABG HCO3 ABG Base Excess ABG Hemoglobin Oxyhemoglobin Sodium Potassium Chloride Carbon Dioxide BUN Creatinine Glucose POC Glucose 153 H 140 H 150 H Lactic Acid Calcium Ionized Calcium Phosphorus Magnesium Direct Bilirubin AST ALT Alkaline Phosphatase Lactate Dehydrogenase Troponin T C-Reactive Protein Total Protein Albumin Prealbumin Triglycerides Cholesterol LDL Cholesterol Direct HDL Cholesterol 25-OH Vitamin D Total PTH Intact Urine pH Urine WBC (Auto) Urine Creatinine Urine Total Protein Fluid Total Protein Vancomycin Trough Rheumatoid Factor Complement C4 Miscellaneous Test Crossmatch 10/13/16 10/13/16 10/13/16 06:22 09:20 12:29 WBC RBC Hgb Hct MCV MCH MCHC RDW Plt Count Lymph % (Auto) [place] % (Auto) Lymph # [place] # Baso # Seg Neutrophils % Seg Neuts % (Manual) Lymphocytes % (Manual) Monocytes % (Manual) Eosinophils % (Manual) Basophils % (Manual) Nucleated RBC % Seg Neutrophils # Seg Neutrophils # Man Lymphocytes # (Manual) Monocytes # (Manual) Eosinophils # (Manual) Basophils # (Manual) PT INR Fibrinogen dRVVT Confirm Interp Factor V Activity POC ABG pH POC ABG pCO2 POC ABG pO2 ABG pO2 ABG HCO3 ABG Base Excess ABG Hemoglobin Oxyhemoglobin Sodium Potassium Chloride Carbon Dioxide BUN Creatinine Glucose POC Glucose 165 H 193 H Lactic Acid Calcium Ionized Calcium Phosphorus Magnesium Direct Bilirubin AST ALT Alkaline Phosphatase Lactate Dehydrogenase Troponin T C-Reactive Protein Total Protein Albumin Prealbumin Triglycerides Cholesterol LDL Cholesterol Direct HDL Cholesterol 25-OH Vitamin D Total PTH Intact Urine pH Urine WBC (Auto) Urine Creatinine Urine Total Protein Fluid Total Protein Vancomycin Trough Rheumatoid Factor Complement C4 Miscellaneous Test Flexitest 1 H Crossmatch 10/13/16 10/13/16 10/13/16 18:09 Unknown Unknown WBC 23.4 H RBC 2.83 L Hgb 8.7 L Hct 26.1 L MCV MCH MCHC RDW 18.1 H Plt Count Lymph % (Auto) [place] % (Auto) Lymph # [place] # Baso # Seg Neutrophils % Seg Neuts % (Manual) Lymphocytes % (Manual) Monocytes % (Manual) Eosinophils % (Manual) Basophils % (Manual) Nucleated RBC % Seg Neutrophils # Seg Neutrophils # Man Lymphocytes # (Manual) Monocytes # (Manual) Eosinophils # (Manual) Basophils # (Manual) PT INR Fibrinogen dRVVT Confirm Interp Factor V Activity POC ABG pH POC ABG pCO2 POC ABG pO2 ABG pO2 ABG HCO3 ABG Base Excess ABG Hemoglobin Oxyhemoglobin Sodium Potassium Chloride 95.8 L Carbon Dioxide BUN 82 H Creatinine 2.6 H Glucose 152 H POC Glucose 166 H Lactic Acid Calcium Ionized Calcium Phosphorus Magnesium Direct Bilirubin AST ALT Alkaline Phosphatase Lactate Dehydrogenase Troponin T C-Reactive Protein Total Protein Albumin Prealbumin Triglycerides Cholesterol LDL Cholesterol Direct HDL Cholesterol 25-OH Vitamin D Total PTH Intact Urine pH Urine WBC (Auto) Urine Creatinine Urine Total Protein Fluid Total Protein Vancomycin Trough Rheumatoid Factor Complement C4 Miscellaneous Test Crossmatch 10/14/16 10/14/16 10/14/16 05:38 06:35 08:10 WBC 20.7 H RBC 2.81 L Hgb 8.4 L Hct 27.2 L MCV MCH MCHC RDW 19.4 H Plt Count Lymph % (Auto) [place] % (Auto) Lymph # [place] # Baso # Seg Neutrophils % Seg Neuts % (Manual) Lymphocytes % (Manual) Monocytes % (Manual) Eosinophils % (Manual) Basophils % (Manual) Nucleated RBC % Seg Neutrophils # Seg Neutrophils # Man Lymphocytes # (Manual) Monocytes # (Manual) Eosinophils # (Manual) Basophils # (Manual) PT INR Fibrinogen dRVVT Confirm Interp Factor V Activity POC ABG pH POC ABG pCO2 POC ABG pO2 ABG pO2 ABG HCO3 ABG Base Excess ABG Hemoglobin Oxyhemoglobin Sodium Potassium Chloride Carbon Dioxide BUN 58 H Creatinine 1.9 H Glucose 169 H POC Glucose 195 H Lactic Acid Calcium Ionized Calcium Phosphorus Magnesium Direct Bilirubin AST ALT Alkaline Phosphatase Lactate Dehydrogenase Troponin T C-Reactive Protein Total Protein Albumin Prealbumin Triglycerides Cholesterol LDL Cholesterol Direct HDL Cholesterol 25-OH Vitamin D Total PTH Intact Urine pH Urine WBC (Auto) Urine Creatinine Urine Total Protein Fluid Total Protein Vancomycin Trough Rheumatoid Factor Complement C4 Miscellaneous Test Crossmatch 10/14/16 10/14/16 10/14/16 11:44 17:13 23:28 WBC RBC Hgb Hct MCV MCH MCHC RDW Plt Count Lymph % (Auto) [place] % (Auto) Lymph # [place] # Baso # Seg Neutrophils % Seg Neuts % (Manual) Lymphocytes % (Manual) Monocytes % (Manual) Eosinophils % (Manual) Basophils % (Manual) Nucleated RBC % Seg Neutrophils # Seg Neutrophils # Man Lymphocytes # (Manual) Monocytes # (Manual) Eosinophils # (Manual) Basophils # (Manual) PT INR Fibrinogen dRVVT Confirm Interp Factor V Activity POC ABG pH POC ABG pCO2 POC ABG pO2 ABG pO2 ABG HCO3 ABG Base Excess ABG Hemoglobin Oxyhemoglobin Sodium Potassium Chloride Carbon Dioxide BUN Creatinine Glucose POC Glucose 174 H 121 H 151 H Lactic Acid Calcium Ionized Calcium Phosphorus Magnesium Direct Bilirubin AST ALT Alkaline Phosphatase Lactate Dehydrogenase Troponin T C-Reactive Protein Total Protein Albumin Prealbumin Triglycerides Cholesterol LDL Cholesterol Direct HDL Cholesterol 25-OH Vitamin D Total PTH Intact Urine pH Urine WBC (Auto) Urine Creatinine Urine Total Protein Fluid Total Protein Vancomycin Trough Rheumatoid Factor Complement C4 Miscellaneous Test Crossmatch 10/15/16 10/15/16 10/15/16 05:06 12:26 17:48 WBC RBC Hgb Hct MCV MCH MCHC RDW Plt Count Lymph % (Auto) [place] % (Auto) Lymph # [place] # Baso # Seg Neutrophils % Seg Neuts % (Manual) Lymphocytes % (Manual) Monocytes % (Manual) Eosinophils % (Manual) Basophils % (Manual) Nucleated RBC % Seg Neutrophils # Seg Neutrophils # Man Lymphocytes # (Manual) Monocytes # (Manual) Eosinophils # (Manual) Basophils # (Manual) PT INR Fibrinogen dRVVT Confirm Interp Factor V Activity POC ABG pH POC ABG pCO2 POC ABG pO2 ABG pO2 ABG HCO3 ABG Base Excess ABG Hemoglobin Oxyhemoglobin Sodium Potassium Chloride Carbon Dioxide BUN Creatinine Glucose POC Glucose 151 H 149 H 153 H Lactic Acid Calcium Ionized Calcium Phosphorus Magnesium Direct Bilirubin AST ALT Alkaline Phosphatase Lactate Dehydrogenase Troponin T C-Reactive Protein Total Protein Albumin Prealbumin Triglycerides Cholesterol LDL Cholesterol Direct HDL Cholesterol 25-OH Vitamin D Total PTH Intact Urine pH Urine WBC (Auto) Urine Creatinine Urine Total Protein Fluid Total Protein Vancomycin Trough Rheumatoid Factor Complement C4 Miscellaneous Test Crossmatch 10/15/16 10/15/16 10/16/16 Unknown Unknown 00:02 WBC 23.4 H RBC 2.78 L Hgb 8.5 L Hct 25.7 L MCV MCH MCHC RDW 18.7 H Plt Count Lymph % (Auto) [place] % (Auto) Lymph # [place] # Baso # Seg Neutrophils % Seg Neuts % (Manual) Lymphocytes % (Manual) Monocytes % (Manual) Eosinophils % (Manual) Basophils % (Manual) Nucleated RBC % Seg Neutrophils # Seg Neutrophils # Man Lymphocytes # (Manual) Monocytes # (Manual) Eosinophils # (Manual) Basophils # (Manual) PT INR Fibrinogen dRVVT Confirm Interp Factor V Activity POC ABG pH POC ABG pCO2 POC ABG pO2 ABG pO2 ABG HCO3 ABG Base Excess ABG Hemoglobin Oxyhemoglobin Sodium Potassium Chloride Carbon Dioxide BUN 73 H Creatinine 2.3 H Glucose 120 H POC Glucose 137 H Lactic Acid Calcium Ionized Calcium Phosphorus Magnesium Direct Bilirubin AST ALT Alkaline Phosphatase Lactate Dehydrogenase Troponin T C-Reactive Protein Total Protein Albumin Prealbumin Triglycerides Cholesterol LDL Cholesterol Direct HDL Cholesterol 25-OH Vitamin D Total PTH Intact Urine pH Urine WBC (Auto) Urine Creatinine Urine Total Protein Fluid Total Protein Vancomycin Trough Rheumatoid Factor Complement C4 Miscellaneous Test Crossmatch 10/16/16 10/16/16 10/16/16 05:44 06:25 06:25 WBC 22.5 H RBC 2.76 L Hgb 8.3 L Hct 25.2 L MCV MCH MCHC RDW 18.3 H Plt Count Lymph % (Auto) [place] % (Auto) Lymph # [place] # Baso # Seg Neutrophils % Seg Neuts % (Manual) Lymphocytes % (Manual) Monocytes % (Manual) Eosinophils % (Manual) Basophils % (Manual) Nucleated RBC % Seg Neutrophils # Seg Neutrophils # Man Lymphocytes # (Manual) Monocytes # (Manual) Eosinophils # (Manual) Basophils # (Manual) PT INR Fibrinogen dRVVT Confirm Interp Factor V Activity POC ABG pH POC ABG pCO2 POC ABG pO2 ABG pO2 ABG HCO3 ABG Base Excess ABG Hemoglobin Oxyhemoglobin Sodium Potassium Chloride Carbon Dioxide BUN 92 H Creatinine 3.0 H Glucose 138 H POC Glucose 110 H Lactic Acid Calcium Ionized Calcium Phosphorus Magnesium Direct Bilirubin AST ALT Alkaline Phosphatase Lactate Dehydrogenase Troponin T C-Reactive Protein Total Protein Albumin Prealbumin Triglycerides Cholesterol LDL Cholesterol Direct HDL Cholesterol 25-OH Vitamin D Total PTH Intact Urine pH Urine WBC (Auto) Urine Creatinine Urine Total Protein Fluid Total Protein Vancomycin Trough Rheumatoid Factor Complement C4 Miscellaneous Test Crossmatch 10/16/16 10/16/16 10/16/16 11:27 11:48 17:36 WBC RBC Hgb Hct MCV MCH MCHC RDW Plt Count Lymph % (Auto) [place] % (Auto) Lymph # [place] # Baso # Seg Neutrophils % Seg Neuts % (Manual) Lymphocytes % (Manual) Monocytes % (Manual) Eosinophils % (Manual) Basophils % (Manual) Nucleated RBC % Seg Neutrophils # Seg Neutrophils # Man Lymphocytes # (Manual) Monocytes # (Manual) Eosinophils # (Manual) Basophils # (Manual) PT INR Fibrinogen dRVVT Confirm Interp Factor V Activity POC ABG pH 7.582 H POC ABG pCO2 27.4 L POC ABG pO2 110 H ABG pO2 ABG HCO3 ABG Base Excess ABG Hemoglobin Oxyhemoglobin Sodium Potassium Chloride Carbon Dioxide BUN Creatinine Glucose POC Glucose 121 H 133 H Lactic Acid Calcium Ionized Calcium Phosphorus Magnesium Direct Bilirubin AST ALT Alkaline Phosphatase Lactate Dehydrogenase Troponin T C-Reactive Protein Total Protein Albumin Prealbumin Triglycerides Cholesterol LDL Cholesterol Direct HDL Cholesterol 25-OH Vitamin D Total PTH Intact Urine pH Urine WBC (Auto) Urine Creatinine Urine Total Protein Fluid Total Protein Vancomycin Trough Rheumatoid Factor Complement C4 Miscellaneous Test Crossmatch 10/16/16 10/17/16 10/17/16 20:48 04:24 04:24 WBC 21.4 H RBC 2.72 L Hgb 8.0 L Hct 25.2 L MCV MCH MCHC RDW 18.0 H Plt Count Lymph % (Auto) [place] % (Auto) Lymph # [place] # Baso # Seg Neutrophils % Seg Neuts % (Manual) Lymphocytes % (Manual) Monocytes % (Manual) Eosinophils % (Manual) Basophils % (Manual) Nucleated RBC % Seg Neutrophils # Seg Neutrophils # Man Lymphocytes # (Manual) Monocytes # (Manual) Eosinophils # (Manual) Basophils # (Manual) PT INR Fibrinogen dRVVT Confirm Interp Factor V Activity POC ABG pH 7.561 H POC ABG pCO2 24.4 L POC ABG pO2 77 L ABG pO2 ABG HCO3 ABG Base Excess ABG Hemoglobin Oxyhemoglobin Sodium 148 H Potassium Chloride Carbon Dioxide BUN 104 H Creatinine 3.0 H Glucose 149 H POC Glucose Lactic Acid Calcium Ionized Calcium Phosphorus Magnesium Direct Bilirubin AST ALT Alkaline Phosphatase 138 H Lactate Dehydrogenase Troponin T C-Reactive Protein Total Protein 6.2 L Albumin 1.5 L Prealbumin Triglycerides Cholesterol LDL Cholesterol Direct HDL Cholesterol 25-OH Vitamin D Total PTH Intact Urine pH Urine WBC (Auto) Urine Creatinine Urine Total Protein Fluid Total Protein Vancomycin Trough Rheumatoid Factor Complement C4 Miscellaneous Test Crossmatch 10/17/16 10/17/16 10/17/16 06:02 12:17 17:14 WBC RBC Hgb Hct MCV MCH MCHC RDW Plt Count Lymph % (Auto) [place] % (Auto) Lymph # [place] # Baso # Seg Neutrophils % Seg Neuts % (Manual) Lymphocytes % (Manual) Monocytes % (Manual) Eosinophils % (Manual) Basophils % (Manual) Nucleated RBC % Seg Neutrophils # Seg Neutrophils # Man Lymphocytes # (Manual) Monocytes # (Manual) Eosinophils # (Manual) Basophils # (Manual) PT INR Fibrinogen dRVVT Confirm Interp Factor V Activity POC ABG pH POC ABG pCO2 POC ABG pO2 ABG pO2 ABG HCO3 ABG Base Excess ABG Hemoglobin Oxyhemoglobin Sodium Potassium Chloride Carbon Dioxide BUN Creatinine Glucose POC Glucose 170 H 167 H 126 H Lactic Acid Calcium Ionized Calcium Phosphorus Magnesium Direct Bilirubin AST ALT Alkaline Phosphatase Lactate Dehydrogenase Troponin T C-Reactive Protein Total Protein Albumin Prealbumin Triglycerides Cholesterol LDL Cholesterol Direct HDL Cholesterol 25-OH Vitamin D Total PTH Intact Urine pH Urine WBC (Auto) Urine Creatinine Urine Total Protein Fluid Total Protein Vancomycin Trough Rheumatoid Factor Complement C4 Miscellaneous Test Crossmatch 10/17/16 10/18/16 10/18/16 23:17 04:00 04:00 WBC 20.7 H RBC 2.47 L Hgb 7.4 L Hct 22.9 L MCV MCH MCHC RDW 17.5 H Plt Count Lymph % (Auto) [place] % (Auto) Lymph # [place] # Baso # Seg Neutrophils % Seg Neuts % (Manual) Lymphocytes % (Manual) Monocytes % (Manual) Eosinophils % (Manual) Basophils % (Manual) Nucleated RBC % Seg Neutrophils # Seg Neutrophils # Man Lymphocytes # (Manual) Monocytes # (Manual) Eosinophils # (Manual) Basophils # (Manual) PT INR Fibrinogen dRVVT Confirm Interp Factor V Activity POC ABG pH POC ABG pCO2 POC ABG pO2 ABG pO2 ABG HCO3 ABG Base Excess ABG Hemoglobin Oxyhemoglobin Sodium 149 H Potassium Chloride 107.9 H Carbon Dioxide 20 L BUN 117 H Creatinine 3.2 H Glucose 119 H POC Glucose 121 H Lactic Acid Calcium Ionized Calcium Phosphorus Magnesium Direct Bilirubin AST ALT Alkaline Phosphatase Lactate Dehydrogenase Troponin T C-Reactive Protein Total Protein Albumin Prealbumin Triglycerides Cholesterol LDL Cholesterol Direct HDL Cholesterol 25-OH Vitamin D Total PTH Intact Urine pH Urine WBC (Auto) Urine Creatinine Urine Total Protein Fluid Total Protein Vancomycin Trough Rheumatoid Factor Complement C4 Miscellaneous Test Crossmatch 10/18/16 10/18/16 10/18/16 05:23 10:46 17:30 WBC RBC Hgb Hct MCV MCH MCHC RDW Plt Count Lymph % (Auto) [place] % (Auto) Lymph # [place] # Baso # Seg Neutrophils % Seg Neuts % (Manual) Lymphocytes % (Manual) Monocytes % (Manual) Eosinophils % (Manual) Basophils % (Manual) Nucleated RBC % Seg Neutrophils # Seg Neutrophils # Man Lymphocytes # (Manual) Monocytes # (Manual) Eosinophils # (Manual) Basophils # (Manual) PT INR Fibrinogen dRVVT Confirm Interp Factor V Activity POC ABG pH POC ABG pCO2 POC ABG pO2 ABG pO2 ABG HCO3 ABG Base Excess ABG Hemoglobin Oxyhemoglobin Sodium Potassium Chloride Carbon Dioxide BUN Creatinine Glucose POC Glucose 119 H 155 H 124 H Lactic Acid Calcium Ionized Calcium Phosphorus Magnesium Direct Bilirubin AST ALT Alkaline Phosphatase Lactate Dehydrogenase Troponin T C-Reactive Protein Total Protein Albumin Prealbumin Triglycerides Cholesterol LDL Cholesterol Direct HDL Cholesterol 25-OH Vitamin D Total PTH Intact Urine pH Urine WBC (Auto) Urine Creatinine Urine Total Protein Fluid Total Protein Vancomycin Trough Rheumatoid Factor Complement C4 Miscellaneous Test Crossmatch 10/19/16 10/19/16 10/19/16 04:00 04:00 05:25 WBC 17.4 H RBC 2.54 L Hgb 7.7 L Hct 23.6 L MCV MCH MCHC RDW 17.3 H Plt Count Lymph % (Auto) [place] % (Auto) Lymph # [place] # Baso # Seg Neutrophils % Seg Neuts % (Manual) Lymphocytes % (Manual) Monocytes % (Manual) Eosinophils % (Manual) Basophils % (Manual) Nucleated RBC % Seg Neutrophils # Seg Neutrophils # Man Lymphocytes # (Manual) Monocytes # (Manual) Eosinophils # (Manual) Basophils # (Manual) PT INR Fibrinogen dRVVT Confirm Interp Factor V Activity POC ABG pH POC ABG pCO2 POC ABG pO2 ABG pO2 ABG HCO3 ABG Base Excess ABG Hemoglobin Oxyhemoglobin Sodium Potassium Chloride Carbon Dioxide BUN 72 H Creatinine 2.1 H Glucose 116 H POC Glucose 119 H Lactic Acid Calcium Ionized Calcium Phosphorus Magnesium Direct Bilirubin AST ALT Alkaline Phosphatase Lactate Dehydrogenase Troponin T C-Reactive Protein Total Protein Albumin Prealbumin Triglycerides Cholesterol LDL Cholesterol Direct HDL Cholesterol 25-OH Vitamin D Total PTH Intact Urine pH Urine WBC (Auto) Urine Creatinine Urine Total Protein Fluid Total Protein Vancomycin Trough Rheumatoid Factor Complement C4 Miscellaneous Test Crossmatch 10/19/16 10/19/16 10/20/16 11:46 23:59 06:00 WBC RBC Hgb Hct MCV MCH MCHC RDW Plt Count Lymph % (Auto) [place] % (Auto) Lymph # [place] # Baso # Seg Neutrophils % Seg Neuts % (Manual) Lymphocytes % (Manual) Monocytes % (Manual) Eosinophils % (Manual) Basophils % (Manual) Nucleated RBC % Seg Neutrophils # Seg Neutrophils # Man Lymphocytes # (Manual) Monocytes # (Manual) Eosinophils # (Manual) Basophils # (Manual) PT INR Fibrinogen dRVVT Confirm Interp Factor V Activity POC ABG pH POC ABG pCO2 POC ABG pO2 ABG pO2 ABG HCO3 ABG Base Excess ABG Hemoglobin Oxyhemoglobin Sodium Potassium Chloride Carbon Dioxide 17 L BUN 94 H Creatinine 2.7 H Glucose POC Glucose 116 H 117 H Lactic Acid Calcium Ionized Calcium Phosphorus Magnesium Direct Bilirubin AST ALT Alkaline Phosphatase Lactate Dehydrogenase Troponin T C-Reactive Protein Total Protein Albumin Prealbumin Triglycerides Cholesterol LDL Cholesterol Direct HDL Cholesterol 25-OH Vitamin D Total PTH Intact Urine pH Urine WBC (Auto) Urine Creatinine Urine Total Protein Fluid Total Protein Vancomycin Trough Rheumatoid Factor Complement C4 Miscellaneous Test Crossmatch 10/20/16 10/20/16 10/20/16 06:00 11:49 16:00 WBC 19.7 H RBC 2.51 L Hgb 7.7 L Hct 23.5 L MCV MCH MCHC RDW 17.5 H Plt Count Lymph % (Auto) [place] % (Auto) Lymph # [place] # Baso # Seg Neutrophils % Seg Neuts % (Manual) Lymphocytes % (Manual) Monocytes % (Manual) Eosinophils % (Manual) Basophils % (Manual) Nucleated RBC % Seg Neutrophils # Seg Neutrophils # Man Lymphocytes # (Manual) Monocytes # (Manual) Eosinophils # (Manual) Basophils # (Manual) PT INR Fibrinogen dRVVT Confirm Interp Factor V Activity POC ABG pH POC ABG pCO2 POC ABG pO2 ABG pO2 ABG HCO3 ABG Base Excess ABG Hemoglobin Oxyhemoglobin Sodium Potassium Chloride Carbon Dioxide BUN Creatinine Glucose POC Glucose 117 H Lactic Acid Calcium Ionized Calcium Phosphorus Magnesium Direct Bilirubin AST ALT Alkaline Phosphatase Lactate Dehydrogenase Troponin T C-Reactive Protein Total Protein Albumin Prealbumin Triglycerides Cholesterol LDL Cholesterol Direct HDL Cholesterol 25-OH Vitamin D Total PTH Intact Urine pH Urine WBC (Auto) Urine Creatinine Urine Total Protein Fluid Total Protein Vancomycin Trough Rheumatoid Factor Complement C4 Miscellaneous Test Flexitest 1 H Crossmatch 10/20/16 10/20/16 10/21/16 18:36 23:39 04:00 WBC RBC Hgb Hct MCV MCH MCHC RDW Plt Count Lymph % (Auto) [place] % (Auto) Lymph # [place] # Baso # Seg Neutrophils % Seg Neuts % (Manual) Lymphocytes % (Manual) Monocytes % (Manual) Eosinophils % (Manual) Basophils % (Manual) Nucleated RBC % Seg Neutrophils # Seg Neutrophils # Man Lymphocytes # (Manual) Monocytes # (Manual) Eosinophils # (Manual) Basophils # (Manual) PT INR Fibrinogen dRVVT Confirm Interp Factor V Activity POC ABG pH POC ABG pCO2 POC ABG pO2 ABG pO2 ABG HCO3 ABG Base Excess ABG Hemoglobin Oxyhemoglobin Sodium Potassium 5.4 H D Chloride Carbon Dioxide 15 L BUN 110 H Creatinine 3.0 H Glucose POC Glucose 127 H 114 H Lactic Acid Calcium Ionized Calcium Phosphorus Magnesium Direct Bilirubin AST ALT Alkaline Phosphatase Lactate Dehydrogenase Troponin T C-Reactive Protein Total Protein Albumin Prealbumin Triglycerides Cholesterol LDL Cholesterol Direct HDL Cholesterol 25-OH Vitamin D Total PTH Intact Urine pH Urine WBC (Auto) Urine Creatinine Urine Total Protein Fluid Total Protein Vancomycin Trough Rheumatoid Factor Complement C4 Miscellaneous Test Crossmatch 10/21/16 10/21/16 10/22/16 05:54 23:46 05:18 WBC RBC Hgb Hct MCV MCH MCHC RDW Plt Count Lymph % (Auto) [place] % (Auto) Lymph # [place] # Baso # Seg Neutrophils % Seg Neuts % (Manual) Lymphocytes % (Manual) Monocytes % (Manual) Eosinophils % (Manual) Basophils % (Manual) Nucleated RBC % Seg Neutrophils # Seg Neutrophils # Man Lymphocytes # (Manual) Monocytes # (Manual) Eosinophils # (Manual) Basophils # (Manual) PT INR Fibrinogen dRVVT Confirm Interp Factor V Activity POC ABG pH POC ABG pCO2 POC ABG pO2 ABG pO2 ABG HCO3 ABG Base Excess ABG Hemoglobin Oxyhemoglobin Sodium Potassium Chloride Carbon Dioxide BUN Creatinine Glucose POC Glucose 119 H 108 H 109 H Lactic Acid Calcium Ionized Calcium Phosphorus Magnesium Direct Bilirubin AST ALT Alkaline Phosphatase Lactate Dehydrogenase Troponin T C-Reactive Protein Total Protein Albumin Prealbumin Triglycerides Cholesterol LDL Cholesterol Direct HDL Cholesterol 25-OH Vitamin D Total PTH Intact Urine pH Urine WBC (Auto) Urine Creatinine Urine Total Protein Fluid Total Protein Vancomycin Trough Rheumatoid Factor Complement C4 Miscellaneous Test Crossmatch 10/22/16 10/22/16 10/22/16 06:40 06:40 06:40 WBC 14.0 H RBC 2.03 L Hgb 7.0 L Hct 20.5 L MCV 98 H MCH 34 H MCHC 35 H RDW 17.8 H Plt Count Lymph % (Auto) [place] % (Auto) 9.9 H Lymph # [place] # 1.4 H Baso # 0.2 H Seg Neutrophils % 72.0 H Seg Neuts % (Manual) Lymphocytes % (Manual) Monocytes % (Manual) Eosinophils % (Manual) Basophils % (Manual) Nucleated RBC % Seg Neutrophils # 10.0 H Seg Neutrophils # Man Lymphocytes # (Manual) Monocytes # (Manual) Eosinophils # (Manual) Basophils # (Manual) PT INR Fibrinogen dRVVT Confirm Interp Factor V Activity POC ABG pH POC ABG pCO2 POC ABG pO2 ABG pO2 ABG HCO3 ABG Base Excess ABG Hemoglobin Oxyhemoglobin Sodium 130 L D Potassium Chloride 92.4 L Carbon Dioxide 20 L BUN 50 H Creatinine 1.6 H Glucose 589 H* POC Glucose Lactic Acid Calcium 7.8 L D Ionized Calcium Phosphorus Magnesium 1.60 L Direct Bilirubin AST ALT Alkaline Phosphatase Lactate Dehydrogenase Troponin T C-Reactive Protein Total Protein Albumin Prealbumin Triglycerides Cholesterol LDL Cholesterol Direct HDL Cholesterol 25-OH Vitamin D Total PTH Intact Urine pH Urine WBC (Auto) Urine Creatinine Urine Total Protein Fluid Total Protein Vancomycin Trough Rheumatoid Factor Complement C4 Miscellaneous Test Crossmatch 10/22/16 10/22/16 10/22/16 11:39 16:44 23:36 WBC RBC Hgb Hct MCV MCH MCHC RDW Plt Count Lymph % (Auto) [place] % (Auto) Lymph # [place] # Baso # Seg Neutrophils % Seg Neuts % (Manual) Lymphocytes % (Manual) Monocytes % (Manual) Eosinophils % (Manual) Basophils % (Manual) Nucleated RBC % Seg Neutrophils # Seg Neutrophils # Man Lymphocytes # (Manual) Monocytes # (Manual) Eosinophils # (Manual) Basophils # (Manual) PT INR Fibrinogen dRVVT Confirm Interp Factor V Activity POC ABG pH POC ABG pCO2 POC ABG pO2 ABG pO2 ABG HCO3 ABG Base Excess ABG Hemoglobin Oxyhemoglobin Sodium Potassium Chloride Carbon Dioxide BUN Creatinine Glucose POC Glucose 142 H 163 H 123 H Lactic Acid Calcium Ionized Calcium Phosphorus Magnesium Direct Bilirubin AST ALT Alkaline Phosphatase Lactate Dehydrogenase Troponin T C-Reactive Protein Total Protein Albumin Prealbumin Triglycerides Cholesterol LDL Cholesterol Direct HDL Cholesterol 25-OH Vitamin D Total PTH Intact Urine pH Urine WBC (Auto) Urine Creatinine Urine Total Protein Fluid Total Protein Vancomycin Trough Rheumatoid Factor Complement C4 Miscellaneous Test Crossmatch 10/23/16 10/23/16 10/23/16 04:58 06:00 12:12 WBC RBC Hgb Hct MCV MCH MCHC RDW Plt Count Lymph % (Auto) [place] % (Auto) Lymph # [place] # Baso # Seg Neutrophils % Seg Neuts % (Manual) Lymphocytes % (Manual) Monocytes % (Manual) Eosinophils % (Manual) Basophils % (Manual) Nucleated RBC % Seg Neutrophils # Seg Neutrophils # Man Lymphocytes # (Manual) Monocytes # (Manual) Eosinophils # (Manual) Basophils # (Manual) PT INR Fibrinogen dRVVT Confirm Interp Factor V Activity POC ABG pH POC ABG pCO2 POC ABG pO2 ABG pO2 ABG HCO3 ABG Base Excess ABG Hemoglobin Oxyhemoglobin Sodium 133 L Potassium 3.5 L Chloride 96.1 L Carbon Dioxide 18 L BUN 76 H Creatinine 2.1 H Glucose POC Glucose 133 H 138 H Lactic Acid Calcium 8.3 L Ionized Calcium Phosphorus Magnesium Direct Bilirubin AST ALT Alkaline Phosphatase Lactate Dehydrogenase Troponin T C-Reactive Protein Total Protein Albumin Prealbumin Triglycerides Cholesterol LDL Cholesterol Direct HDL Cholesterol 25-OH Vitamin D Total PTH Intact Urine pH Urine WBC (Auto) Urine Creatinine Urine Total Protein Fluid Total Protein Vancomycin Trough Rheumatoid Factor Complement C4 Miscellaneous Test Crossmatch 10/23/16 10/23/16 10/24/16 16:53 23:37 04:00 WBC RBC Hgb Hct MCV MCH MCHC RDW Plt Count Lymph % (Auto) [place] % (Auto) Lymph # [place] # Baso # Seg Neutrophils % Seg Neuts % (Manual) Lymphocytes % (Manual) Monocytes % (Manual) Eosinophils % (Manual) Basophils % (Manual) Nucleated RBC % Seg Neutrophils # Seg Neutrophils # Man Lymphocytes # (Manual) Monocytes # (Manual) Eosinophils # (Manual) Basophils # (Manual) PT INR Fibrinogen dRVVT Confirm Interp Factor V Activity POC ABG pH POC ABG pCO2 POC ABG pO2 ABG pO2 ABG HCO3 ABG Base Excess ABG Hemoglobin Oxyhemoglobin Sodium 131 L Potassium Chloride 94.5 L Carbon Dioxide 19 L BUN 97 H Creatinine 2.6 H Glucose 110 H POC Glucose 125 H 123 H Lactic Acid Calcium 8.3 L Ionized Calcium Phosphorus Magnesium Direct Bilirubin AST ALT Alkaline Phosphatase Lactate Dehydrogenase Troponin T C-Reactive Protein Total Protein Albumin Prealbumin Triglycerides Cholesterol LDL Cholesterol Direct HDL Cholesterol 25-OH Vitamin D Total PTH Intact Urine pH Urine WBC (Auto) Urine Creatinine Urine Total Protein Fluid Total Protein Vancomycin Trough Rheumatoid Factor Complement C4 Miscellaneous Test Crossmatch 10/24/16 10/24/16 10/24/16 07:49 11:39 17:52 WBC RBC Hgb 6.0 L Hct 19.7 L* MCV MCH MCHC RDW Plt Count Lymph % (Auto) [place] % (Auto) Lymph # [place] # Baso # Seg Neutrophils % Seg Neuts % (Manual) Lymphocytes % (Manual) Monocytes % (Manual) Eosinophils % (Manual) Basophils % (Manual) Nucleated RBC % Seg Neutrophils # Seg Neutrophils # Man Lymphocytes # (Manual) Monocytes # (Manual) Eosinophils # (Manual) Basophils # (Manual) PT INR Fibrinogen dRVVT Confirm Interp Factor V Activity POC ABG pH POC ABG pCO2 POC ABG pO2 ABG pO2 ABG HCO3 ABG Base Excess ABG Hemoglobin Oxyhemoglobin Sodium Potassium Chloride Carbon Dioxide BUN Creatinine Glucose POC Glucose 106 H 158 H Lactic Acid Calcium Ionized Calcium Phosphorus Magnesium Direct Bilirubin AST ALT Alkaline Phosphatase Lactate Dehydrogenase Troponin T C-Reactive Protein Total Protein Albumin Prealbumin Triglycerides Cholesterol LDL Cholesterol Direct HDL Cholesterol 25-OH Vitamin D Total PTH Intact Urine pH Urine WBC (Auto) Urine Creatinine Urine Total Protein Fluid Total Protein Vancomycin Trough Rheumatoid Factor Complement C4 Miscellaneous Test Crossmatch 10/24/16 10/24/16 10/24/16 20:00 22:27 Unknown WBC RBC Hgb 9.4 L D Hct 27.5 L D MCV MCH MCHC RDW Plt Count Lymph % (Auto) [place] % (Auto) Lymph # [place] # Baso # Seg Neutrophils % Seg Neuts % (Manual) Lymphocytes % (Manual) Monocytes % (Manual) Eosinophils % (Manual) Basophils % (Manual) Nucleated RBC % Seg Neutrophils # Seg Neutrophils # Man Lymphocytes # (Manual) Monocytes # (Manual) Eosinophils # (Manual) Basophils # (Manual) PT INR Fibrinogen dRVVT Confirm Interp Factor V Activity POC ABG pH POC ABG pCO2 POC ABG pO2 ABG pO2 ABG HCO3 ABG Base Excess ABG Hemoglobin Oxyhemoglobin Sodium Potassium Chloride Carbon Dioxide BUN Creatinine Glucose POC Glucose 125 H Lactic Acid Calcium Ionized Calcium Phosphorus Magnesium Direct Bilirubin AST ALT Alkaline Phosphatase Lactate Dehydrogenase Troponin T C-Reactive Protein Total Protein Albumin Prealbumin Triglycerides Cholesterol LDL Cholesterol Direct HDL Cholesterol 25-OH Vitamin D Total PTH Intact Urine pH Urine WBC (Auto) Urine Creatinine Urine Total Protein Fluid Total Protein Vancomycin Trough Rheumatoid Factor Complement C4 Miscellaneous Test Crossmatch See Detail 10/25/16 10/25/16 10/25/16 04:00 04:00 04:00 WBC 14.2 H RBC 2.98 L Hgb 9.0 L Hct 26.2 L MCV MCH MCHC RDW 16.6 H Plt Count Lymph % (Auto) [place] % (Auto) 10.7 H Lymph # [place] # 1.5 H Baso # Seg Neutrophils % 73.6 H Seg Neuts % (Manual) Lymphocytes % (Manual) Monocytes % (Manual) Eosinophils % (Manual) Basophils % (Manual) Nucleated RBC % Seg Neutrophils # 10.5 H Seg Neutrophils # Man Lymphocytes # (Manual) Monocytes # (Manual) Eosinophils # (Manual) Basophils # (Manual) PT INR Fibrinogen dRVVT Confirm Interp Factor V Activity POC ABG pH POC ABG pCO2 POC ABG pO2 ABG pO2 ABG HCO3 ABG Base Excess ABG Hemoglobin Oxyhemoglobin Sodium 132 L Potassium Chloride 94.7 L Carbon Dioxide BUN 51 H Creatinine 1.6 H Glucose 130 H POC Glucose Lactic Acid Calcium 8.3 L Ionized Calcium Phosphorus 1.60 L D Magnesium Direct Bilirubin AST ALT Alkaline Phosphatase Lactate Dehydrogenase Troponin T C-Reactive Protein Total Protein Albumin Prealbumin Triglycerides Cholesterol LDL Cholesterol Direct HDL Cholesterol 25-OH Vitamin D Total PTH Intact Urine pH Urine WBC (Auto) Urine Creatinine Urine Total Protein Fluid Total Protein Vancomycin Trough Rheumatoid Factor Complement C4 Miscellaneous Test Crossmatch 10/25/16 10/25/16 10/25/16 04:32 11:48 17:22 WBC RBC Hgb Hct MCV MCH MCHC RDW Plt Count Lymph % (Auto) [place] % (Auto) Lymph # [place] # Baso # Seg Neutrophils % Seg Neuts % (Manual) Lymphocytes % (Manual) Monocytes % (Manual) Eosinophils % (Manual) Basophils % (Manual) Nucleated RBC % Seg Neutrophils # Seg Neutrophils # Man Lymphocytes # (Manual) Monocytes # (Manual) Eosinophils # (Manual) Basophils # (Manual) PT INR Fibrinogen dRVVT Confirm Interp Factor V Activity POC ABG pH POC ABG pCO2 POC ABG pO2 ABG pO2 ABG HCO3 ABG Base Excess ABG Hemoglobin Oxyhemoglobin Sodium Potassium Chloride Carbon Dioxide BUN Creatinine Glucose POC Glucose 124 H 171 H 120 H Lactic Acid Calcium Ionized Calcium Phosphorus Magnesium Direct Bilirubin AST ALT Alkaline Phosphatase Lactate Dehydrogenase Troponin T C-Reactive Protein Total Protein Albumin Prealbumin Triglycerides Cholesterol LDL Cholesterol Direct HDL Cholesterol 25-OH Vitamin D Total PTH Intact Urine pH Urine WBC (Auto) Urine Creatinine Urine Total Protein Fluid Total Protein Vancomycin Trough Rheumatoid Factor Complement C4 Miscellaneous Test Crossmatch 10/26/16 10/26/16 10/26/16 04:54 07:06 07:06 WBC 16.9 H RBC 3.06 L Hgb 9.1 L Hct 26.9 L MCV MCH MCHC RDW 16.9 H Plt Count Lymph % (Auto) [place] % (Auto) Lymph # [place] # Baso # Seg Neutrophils % Seg Neuts % (Manual) 71.0 H Lymphocytes % (Manual) 5.0 L Monocytes % (Manual) 12.0 H Eosinophils % (Manual) Basophils % (Manual) Nucleated RBC % Seg Neutrophils # Seg Neutrophils # Man 12.0 H Lymphocytes # (Manual) 0.8 L Monocytes # (Manual) 2.0 H Eosinophils # (Manual) Basophils # (Manual) PT INR Fibrinogen dRVVT Confirm Interp Factor V Activity POC ABG pH POC ABG pCO2 POC ABG pO2 ABG pO2 ABG HCO3 ABG Base Excess ABG Hemoglobin Oxyhemoglobin Sodium 135 L Potassium Chloride 97.1 L Carbon Dioxide BUN 73 H Creatinine 2.2 H Glucose 117 H POC Glucose 123 H Lactic Acid Calcium Ionized Calcium Phosphorus 1.70 L Magnesium Direct Bilirubin AST ALT Alkaline Phosphatase Lactate Dehydrogenase Troponin T C-Reactive Protein Total Protein Albumin Prealbumin Triglycerides Cholesterol LDL Cholesterol Direct HDL Cholesterol 25-OH Vitamin D Total PTH Intact Urine pH Urine WBC (Auto) Urine Creatinine Urine Total Protein Fluid Total Protein Vancomycin Trough Rheumatoid Factor Complement C4 Miscellaneous Test Crossmatch 10/26/16 10/26/16 10/26/16 12:12 17:29 23:42 WBC RBC Hgb Hct MCV MCH MCHC RDW Plt Count Lymph % (Auto) [place] % (Auto) Lymph # [place] # Baso # Seg Neutrophils % Seg Neuts % (Manual) Lymphocytes % (Manual) Monocytes % (Manual) Eosinophils % (Manual) Basophils % (Manual) Nucleated RBC % Seg Neutrophils # Seg Neutrophils # Man Lymphocytes # (Manual) Monocytes # (Manual) Eosinophils # (Manual) Basophils # (Manual) PT INR Fibrinogen dRVVT Confirm Interp Factor V Activity POC ABG pH POC ABG pCO2 POC ABG pO2 ABG pO2 ABG HCO3 ABG Base Excess ABG Hemoglobin Oxyhemoglobin Sodium Potassium Chloride Carbon Dioxide BUN Creatinine Glucose POC Glucose 126 H 161 H 118 H Lactic Acid Calcium Ionized Calcium Phosphorus Magnesium Direct Bilirubin AST ALT Alkaline Phosphatase Lactate Dehydrogenase Troponin T C-Reactive Protein Total Protein Albumin Prealbumin Triglycerides Cholesterol LDL Cholesterol Direct HDL Cholesterol 25-OH Vitamin D Total PTH Intact Urine pH Urine WBC (Auto) Urine Creatinine Urine Total Protein Fluid Total Protein Vancomycin Trough Rheumatoid Factor Complement C4 Miscellaneous Test Crossmatch 10/27/16 10/27/16 10/27/16 05:03 06:30 06:30 WBC 13.9 H RBC 3.09 L Hgb 9.2 L Hct 27.5 L MCV MCH MCHC RDW 17.0 H Plt Count Lymph % (Auto) [place] % (Auto) Lymph # [place] # Baso # Seg Neutrophils % Seg Neuts % (Manual) 78.0 H Lymphocytes % (Manual) Monocytes % (Manual) Eosinophils % (Manual) Basophils % (Manual) Nucleated RBC % 2.0 H Seg Neutrophils # Seg Neutrophils # Man 10.8 H Lymphocytes # (Manual) Monocytes # (Manual) 1.0 H Eosinophils # (Manual) Basophils # (Manual) PT INR Fibrinogen dRVVT Confirm Interp Factor V Activity POC ABG pH POC ABG pCO2 POC ABG pO2 ABG pO2 ABG HCO3 ABG Base Excess ABG Hemoglobin Oxyhemoglobin Sodium Potassium Chloride Carbon Dioxide BUN 40 H Creatinine 1.5 H Glucose 135 H POC Glucose 107 H Lactic Acid Calcium 8.3 L Ionized Calcium Phosphorus 1.30 L D Magnesium Direct Bilirubin AST ALT Alkaline Phosphatase Lactate Dehydrogenase Troponin T C-Reactive Protein Total Protein Albumin Prealbumin Triglycerides Cholesterol LDL Cholesterol Direct HDL Cholesterol 25-OH Vitamin D Total PTH Intact Urine pH Urine WBC (Auto) Urine Creatinine Urine Total Protein Fluid Total Protein Vancomycin Trough Rheumatoid Factor Complement C4 Miscellaneous Test Crossmatch 10/27/16 10/27/16 10/27/16 13:27 18:07 23:40 WBC RBC Hgb Hct MCV MCH MCHC RDW Plt Count Lymph % (Auto) [place] % (Auto) Lymph # [place] # Baso # Seg Neutrophils % Seg Neuts % (Manual) Lymphocytes % (Manual) Monocytes % (Manual) Eosinophils % (Manual) Basophils % (Manual) Nucleated RBC % Seg Neutrophils # Seg Neutrophils # Man Lymphocytes # (Manual) Monocytes # (Manual) Eosinophils # (Manual) Basophils # (Manual) PT INR Fibrinogen dRVVT Confirm Interp Factor V Activity POC ABG pH POC ABG pCO2 POC ABG pO2 ABG pO2 ABG HCO3 ABG Base Excess ABG Hemoglobin Oxyhemoglobin Sodium Potassium Chloride Carbon Dioxide BUN Creatinine Glucose POC Glucose 117 H 121 H 118 H Lactic Acid Calcium Ionized Calcium Phosphorus Magnesium Direct Bilirubin AST ALT Alkaline Phosphatase Lactate Dehydrogenase Troponin T C-Reactive Protein Total Protein Albumin Prealbumin Triglycerides Cholesterol LDL Cholesterol Direct HDL Cholesterol 25-OH Vitamin D Total PTH Intact Urine pH Urine WBC (Auto) Urine Creatinine Urine Total Protein Fluid Total Protein Vancomycin Trough Rheumatoid Factor Complement C4 Miscellaneous Test Crossmatch 10/28/16 10/28/16 10/28/16 05:48 06:45 06:45 WBC 14.7 H RBC 3.05 L Hgb 9.0 L Hct 26.9 L MCV MCH MCHC RDW 16.8 H Plt Count Lymph % (Auto) 8.2 L [place] % (Auto) 8.4 H Lymph # [place] # 1.2 H Baso # Seg Neutrophils % 81.9 H Seg Neuts % (Manual) Lymphocytes % (Manual) Monocytes % (Manual) Eosinophils % (Manual) Basophils % (Manual) Nucleated RBC % Seg Neutrophils # 12.1 H Seg Neutrophils # Man Lymphocytes # (Manual) Monocytes # (Manual) Eosinophils # (Manual) Basophils # (Manual) PT INR Fibrinogen dRVVT Confirm Interp Factor V Activity POC ABG pH POC ABG pCO2 POC ABG pO2 ABG pO2 ABG HCO3 ABG Base Excess ABG Hemoglobin Oxyhemoglobin Sodium Potassium Chloride Carbon Dioxide BUN 60 H Creatinine 1.9 H Glucose 120 H POC Glucose 114 H Lactic Acid Calcium Ionized Calcium Phosphorus Magnesium Direct Bilirubin AST ALT Alkaline Phosphatase Lactate Dehydrogenase Troponin T C-Reactive Protein Total Protein Albumin Prealbumin Triglycerides Cholesterol LDL Cholesterol Direct HDL Cholesterol 25-OH Vitamin D Total PTH Intact Urine pH Urine WBC (Auto) Urine Creatinine Urine Total Protein Fluid Total Protein Vancomycin Trough Rheumatoid Factor Complement C4 Miscellaneous Test Crossmatch 10/28/16 10/28/16 10/29/16 17:08 23:50 05:10 WBC RBC Hgb Hct MCV MCH MCHC RDW Plt Count Lymph % (Auto) [place] % (Auto) Lymph # [place] # Baso # Seg Neutrophils % Seg Neuts % (Manual) Lymphocytes % (Manual) Monocytes % (Manual) Eosinophils % (Manual) Basophils % (Manual) Nucleated RBC % Seg Neutrophils # Seg Neutrophils # Man Lymphocytes # (Manual) Monocytes # (Manual) Eosinophils # (Manual) Basophils # (Manual) PT INR Fibrinogen dRVVT Confirm Interp Factor V Activity POC ABG pH POC ABG pCO2 POC ABG pO2 ABG pO2 ABG HCO3 ABG Base Excess ABG Hemoglobin Oxyhemoglobin Sodium Potassium Chloride Carbon Dioxide BUN Creatinine Glucose POC Glucose 109 H 110 H 124 H Lactic Acid Calcium Ionized Calcium Phosphorus Magnesium Direct Bilirubin AST ALT Alkaline Phosphatase Lactate Dehydrogenase Troponin T C-Reactive Protein Total Protein Albumin Prealbumin Triglycerides Cholesterol LDL Cholesterol Direct HDL Cholesterol 25-OH Vitamin D Total PTH Intact Urine pH Urine WBC (Auto) Urine Creatinine Urine Total Protein Fluid Total Protein Vancomycin Trough Rheumatoid Factor Complement C4 Miscellaneous Test Crossmatch 10/29/16 10/29/16 10/29/16 07:45 07:45 12:19 WBC 14.7 H RBC 3.15 L Hgb 9.3 L Hct 28.9 L MCV MCH MCHC RDW 17.0 H Plt Count Lymph % (Auto) 11.9 L [place] % (Auto) 8.6 H Lymph # [place] # 1.3 H Baso # Seg Neutrophils % 78.1 H Seg Neuts % (Manual) Lymphocytes % (Manual) Monocytes % (Manual) Eosinophils % (Manual) Basophils % (Manual) Nucleated RBC % Seg Neutrophils # 11.4 H Seg Neutrophils # Man Lymphocytes # (Manual) Monocytes # (Manual) Eosinophils # (Manual) Basophils # (Manual) PT INR Fibrinogen dRVVT Confirm Interp Factor V Activity POC ABG pH POC ABG pCO2 POC ABG pO2 ABG pO2 ABG HCO3 ABG Base Excess ABG Hemoglobin Oxyhemoglobin Sodium Potassium 5.1 H Chloride Carbon Dioxide 19 L BUN 78 H Creatinine 2.2 H Glucose 116 H POC Glucose 118 H Lactic Acid Calcium Ionized Calcium Phosphorus Magnesium Direct Bilirubin AST ALT Alkaline Phosphatase Lactate Dehydrogenase Troponin T C-Reactive Protein Total Protein Albumin Prealbumin Triglycerides Cholesterol LDL Cholesterol Direct HDL Cholesterol 25-OH Vitamin D Total PTH Intact Urine pH Urine WBC (Auto) Urine Creatinine Urine Total Protein Fluid Total Protein Vancomycin Trough Rheumatoid Factor Complement C4 Miscellaneous Test Crossmatch 10/29/16 10/30/16 10/30/16 17:49 01:52 03:28 WBC RBC Hgb Hct MCV MCH MCHC RDW Plt Count Lymph % (Auto) [place] % (Auto) Lymph # [place] # Baso # Seg Neutrophils % Seg Neuts % (Manual) Lymphocytes % (Manual) Monocytes % (Manual) Eosinophils % (Manual) Basophils % (Manual) Nucleated RBC % Seg Neutrophils # Seg Neutrophils # Man Lymphocytes # (Manual) Monocytes # (Manual) Eosinophils # (Manual) Basophils # (Manual) PT INR Fibrinogen dRVVT Confirm Interp Factor V Activity POC ABG pH POC ABG pCO2 POC ABG pO2 ABG pO2 ABG HCO3 ABG Base Excess ABG Hemoglobin Oxyhemoglobin Sodium Potassium 5.4 H Chloride 97.5 L Carbon Dioxide 19 L BUN 90 H Creatinine 2.5 H Glucose POC Glucose 120 H 129 H Lactic Acid Calcium Ionized Calcium Phosphorus 5.20 H Magnesium Direct Bilirubin AST ALT Alkaline Phosphatase Lactate Dehydrogenase Troponin T C-Reactive Protein Total Protein Albumin Prealbumin Triglycerides Cholesterol LDL Cholesterol Direct HDL Cholesterol 25-OH Vitamin D Total PTH Intact Urine pH Urine WBC (Auto) Urine Creatinine Urine Total Protein Fluid Total Protein Vancomycin Trough Rheumatoid Factor Complement C4 Miscellaneous Test Crossmatch 10/30/16 10/30/16 10/30/16 03:28 08:19 08:19 WBC 11.6 H 15.9 H RBC 2.75 L 2.82 L Hgb 7.9 L 8.3 L Hct 24.2 L 25.2 L MCV MCH MCHC RDW 16.7 H 17.2 H Plt Count Lymph % (Auto) [place] % (Auto) 9.8 H Lymph # [place] # 1.1 H Baso # Seg Neutrophils % 74.2 H Seg Neuts % (Manual) Lymphocytes % (Manual) Monocytes % (Manual) Eosinophils % (Manual) Basophils % (Manual) Nucleated RBC % Seg Neutrophils # 8.6 H Seg Neutrophils # Man Lymphocytes # (Manual) Monocytes # (Manual) Eosinophils # (Manual) Basophils # (Manual) PT INR Fibrinogen dRVVT Confirm Interp Factor V Activity POC ABG pH POC ABG pCO2 POC ABG pO2 ABG pO2 ABG HCO3 ABG Base Excess ABG Hemoglobin Oxyhemoglobin Sodium Potassium 5.3 H Chloride 97.4 L Carbon Dioxide 19 L BUN 93 H Creatinine 2.6 H Glucose POC Glucose Lactic Acid Calcium Ionized Calcium Phosphorus Magnesium Direct Bilirubin AST ALT Alkaline Phosphatase Lactate Dehydrogenase Troponin T C-Reactive Protein Total Protein Albumin Prealbumin Triglycerides Cholesterol LDL Cholesterol Direct HDL Cholesterol 25-OH Vitamin D Total PTH Intact Urine pH Urine WBC (Auto) Urine Creatinine Urine Total Protein Fluid Total Protein Vancomycin Trough Rheumatoid Factor Complement C4 Miscellaneous Test Crossmatch 10/30/16 10/30/16 10/31/16 17:11 23:56 00:40 WBC RBC Hgb Hct MCV MCH MCHC RDW Plt Count Lymph % (Auto) [place] % (Auto) Lymph # [place] # Baso # Seg Neutrophils % Seg Neuts % (Manual) Lymphocytes % (Manual) Monocytes % (Manual) Eosinophils % (Manual) Basophils % (Manual) Nucleated RBC % Seg Neutrophils # Seg Neutrophils # Man Lymphocytes # (Manual) Monocytes # (Manual) Eosinophils # (Manual) Basophils # (Manual) PT INR Fibrinogen dRVVT Confirm Interp Factor V Activity POC ABG pH POC ABG pCO2 POC ABG pO2 ABG pO2 ABG HCO3 ABG Base Excess ABG Hemoglobin Oxyhemoglobin Sodium Potassium Chloride Carbon Dioxide BUN Creatinine Glucose POC Glucose 106 H 117 H 120 H Lactic Acid Calcium Ionized Calcium Phosphorus Magnesium Direct Bilirubin AST ALT Alkaline Phosphatase Lactate Dehydrogenase Troponin T C-Reactive Protein Total Protein Albumin Prealbumin Triglycerides Cholesterol LDL Cholesterol Direct HDL Cholesterol 25-OH Vitamin D Total PTH Intact Urine pH Urine WBC (Auto) Urine Creatinine Urine Total Protein Fluid Total Protein Vancomycin Trough Rheumatoid Factor Complement C4 Miscellaneous Test Crossmatch 10/31/16 10/31/16 10/31/16 05:43 07:15 07:15 WBC 12.1 H RBC 2.63 L Hgb 7.7 L Hct 23.3 L MCV MCH MCHC RDW 16.7 H Plt Count Lymph % (Auto) 11.7 L [place] % (Auto) 7.7 H Lymph # [place] # 0.9 H Baso # Seg Neutrophils % 78.0 H Seg Neuts % (Manual) Lymphocytes % (Manual) Monocytes % (Manual) Eosinophils % (Manual) Basophils % (Manual) Nucleated RBC % Seg Neutrophils # 9.4 H Seg Neutrophils # Man Lymphocytes # (Manual) Monocytes # (Manual) Eosinophils # (Manual) Basophils # (Manual) PT INR Fibrinogen dRVVT Confirm Interp Factor V Activity POC ABG pH POC ABG pCO2 POC ABG pO2 ABG pO2 ABG HCO3 ABG Base Excess ABG Hemoglobin Oxyhemoglobin Sodium Potassium Chloride 96.4 L Carbon Dioxide 21 L BUN 99 H Creatinine 2.6 H Glucose 144 H POC Glucose 125 H Lactic Acid Calcium Ionized Calcium Phosphorus 4.80 H Magnesium Direct Bilirubin AST ALT Alkaline Phosphatase Lactate Dehydrogenase Troponin T C-Reactive Protein Total Protein Albumin Prealbumin Triglycerides Cholesterol LDL Cholesterol Direct HDL Cholesterol 25-OH Vitamin D Total PTH Intact Urine pH Urine WBC (Auto) Urine Creatinine Urine Total Protein Fluid Total Protein Vancomycin Trough Rheumatoid Factor Complement C4 Miscellaneous Test Crossmatch 10/31/16 10/31/16 11/01/16 11:46 18:34 00:20 WBC RBC Hgb Hct MCV MCH MCHC RDW Plt Count Lymph % (Auto) [place] % (Auto) Lymph # [place] # Baso # Seg Neutrophils % Seg Neuts % (Manual) Lymphocytes % (Manual) Monocytes % (Manual) Eosinophils % (Manual) Basophils % (Manual) Nucleated RBC % Seg Neutrophils # Seg Neutrophils # Man Lymphocytes # (Manual) Monocytes # (Manual) Eosinophils # (Manual) Basophils # (Manual) PT INR Fibrinogen dRVVT Confirm Interp Factor V Activity POC ABG pH POC ABG pCO2 POC ABG pO2 ABG pO2 ABG HCO3 ABG Base Excess ABG Hemoglobin Oxyhemoglobin Sodium Potassium Chloride Carbon Dioxide BUN Creatinine Glucose POC Glucose 159 H 140 H 132 H Lactic Acid Calcium Ionized Calcium Phosphorus Magnesium Direct Bilirubin AST ALT Alkaline Phosphatase Lactate Dehydrogenase Troponin T C-Reactive Protein Total Protein Albumin Prealbumin Triglycerides Cholesterol LDL Cholesterol Direct HDL Cholesterol 25-OH Vitamin D Total PTH Intact Urine pH Urine WBC (Auto) Urine Creatinine Urine Total Protein Fluid Total Protein Vancomycin Trough Rheumatoid Factor Complement C4 Miscellaneous Test Crossmatch 11/01/16 11/01/16 11/01/16 04:55 04:55 06:11 WBC 11.2 H RBC 2.68 L Hgb 7.5 L Hct 23.7 L MCV MCH MCHC RDW 16.1 H Plt Count Lymph % (Auto) [place] % (Auto) 9.8 H Lymph # [place] # 1.1 H Baso # Seg Neutrophils % 70.8 H Seg Neuts % (Manual) Lymphocytes % (Manual) Monocytes % (Manual) Eosinophils % (Manual) Basophils % (Manual) Nucleated RBC % Seg Neutrophils # 7.9 H Seg Neutrophils # Man Lymphocytes # (Manual) Monocytes # (Manual) Eosinophils # (Manual) Basophils # (Manual) PT INR Fibrinogen dRVVT Confirm Interp Factor V Activity POC ABG pH POC ABG pCO2 POC ABG pO2 ABG pO2 ABG HCO3 ABG Base Excess ABG Hemoglobin Oxyhemoglobin Sodium Potassium 3.3 L D Chloride Carbon Dioxide BUN 61 H Creatinine 1.9 H Glucose 114 H POC Glucose 115 H Lactic Acid Calcium Ionized Calcium Phosphorus 1.80 L D Magnesium Direct Bilirubin AST ALT Alkaline Phosphatase Lactate Dehydrogenase Troponin T C-Reactive Protein Total Protein Albumin Prealbumin Triglycerides Cholesterol LDL Cholesterol Direct HDL Cholesterol 25-OH Vitamin D Total PTH Intact Urine pH Urine WBC (Auto) Urine Creatinine Urine Total Protein Fluid Total Protein Vancomycin Trough Rheumatoid Factor Complement C4 Miscellaneous Test Crossmatch 11/01/16 11/01/16 11/01/16 12:29 18:23 23:58 WBC RBC Hgb Hct MCV MCH MCHC RDW Plt Count Lymph % (Auto) [place] % (Auto) Lymph # [place] # Baso # Seg Neutrophils % Seg Neuts % (Manual) Lymphocytes % (Manual) Monocytes % (Manual) Eosinophils % (Manual) Basophils % (Manual) Nucleated RBC % Seg Neutrophils # Seg Neutrophils # Man Lymphocytes # (Manual) Monocytes # (Manual) Eosinophils # (Manual) Basophils # (Manual) PT INR Fibrinogen dRVVT Confirm Interp Factor V Activity POC ABG pH POC ABG pCO2 POC ABG pO2 ABG pO2 ABG HCO3 ABG Base Excess ABG Hemoglobin Oxyhemoglobin Sodium Potassium Chloride Carbon Dioxide BUN Creatinine Glucose POC Glucose 142 H 143 H 128 H Lactic Acid Calcium Ionized Calcium Phosphorus Magnesium Direct Bilirubin AST ALT Alkaline Phosphatase Lactate Dehydrogenase Troponin T C-Reactive Protein Total Protein Albumin Prealbumin Triglycerides Cholesterol LDL Cholesterol Direct HDL Cholesterol 25-OH Vitamin D Total PTH Intact Urine pH Urine WBC (Auto) Urine Creatinine Urine Total Protein Fluid Total Protein Vancomycin Trough Rheumatoid Factor Complement C4 Miscellaneous Test Crossmatch 11/02/16 11/02/16 11/02/16 04:16 05:29 11:58 WBC RBC Hgb Hct MCV MCH MCHC RDW Plt Count Lymph % (Auto) [place] % (Auto) Lymph # [place] # Baso # Seg Neutrophils % Seg Neuts % (Manual) Lymphocytes % (Manual) Monocytes % (Manual) Eosinophils % (Manual) Basophils % (Manual) Nucleated RBC % Seg Neutrophils # Seg Neutrophils # Man Lymphocytes # (Manual) Monocytes # (Manual) Eosinophils # (Manual) Basophils # (Manual) PT INR Fibrinogen dRVVT Confirm Interp Factor V Activity POC ABG pH POC ABG pCO2 POC ABG pO2 ABG pO2 ABG HCO3 ABG Base Excess ABG Hemoglobin Oxyhemoglobin Sodium Potassium 3.1 L Chloride Carbon Dioxide BUN 73 H Creatinine 2.3 H Glucose 112 H POC Glucose 135 H 149 H Lactic Acid Calcium Ionized Calcium Phosphorus Magnesium Direct Bilirubin AST ALT Alkaline Phosphatase Lactate Dehydrogenase Troponin T C-Reactive Protein Total Protein Albumin Prealbumin Triglycerides Cholesterol LDL Cholesterol Direct HDL Cholesterol 25-OH Vitamin D Total PTH Intact Urine pH Urine WBC (Auto) Urine Creatinine Urine Total Protein Fluid Total Protein Vancomycin Trough Rheumatoid Factor Complement C4 Miscellaneous Test Crossmatch 11/02/16 11/02/16 11/03/16 17:42 22:54 06:00 WBC RBC Hgb Hct MCV MCH MCHC RDW Plt Count Lymph % (Auto) [place] % (Auto) Lymph # [place] # Baso # Seg Neutrophils % Seg Neuts % (Manual) Lymphocytes % (Manual) Monocytes % (Manual) Eosinophils % (Manual) Basophils % (Manual) Nucleated RBC % Seg Neutrophils # Seg Neutrophils # Man Lymphocytes # (Manual) Monocytes # (Manual) Eosinophils # (Manual) Basophils # (Manual) PT INR Fibrinogen dRVVT Confirm Interp Factor V Activity POC ABG pH POC ABG pCO2 POC ABG pO2 ABG pO2 ABG HCO3 ABG Base Excess ABG Hemoglobin Oxyhemoglobin Sodium Potassium Chloride 96.7 L Carbon Dioxide BUN 41 H Creatinine 1.5 H Glucose 145 H POC Glucose 182 H 115 H Lactic Acid Calcium Ionized Calcium Phosphorus 1.60 L D Magnesium 1.50 L Direct Bilirubin AST ALT Alkaline Phosphatase Lactate Dehydrogenase Troponin T C-Reactive Protein Total Protein Albumin Prealbumin Triglycerides Cholesterol LDL Cholesterol Direct HDL Cholesterol 25-OH Vitamin D Total PTH Intact Urine pH Urine WBC (Auto) Urine Creatinine Urine Total Protein Fluid Total Protein Vancomycin Trough Rheumatoid Factor Complement C4 Miscellaneous Test Crossmatch 11/03/16 11/03/16 11/03/16 11:53 17:45 23:37 WBC RBC Hgb Hct MCV MCH MCHC RDW Plt Count Lymph % (Auto) [place] % (Auto) Lymph # [place] # Baso # Seg Neutrophils % Seg Neuts % (Manual) Lymphocytes % (Manual) Monocytes % (Manual) Eosinophils % (Manual) Basophils % (Manual) Nucleated RBC % Seg Neutrophils # Seg Neutrophils # Man Lymphocytes # (Manual) Monocytes # (Manual) Eosinophils # (Manual) Basophils # (Manual) PT INR Fibrinogen dRVVT Confirm Interp Factor V Activity POC ABG pH POC ABG pCO2 POC ABG pO2 ABG pO2 ABG HCO3 ABG Base Excess ABG Hemoglobin Oxyhemoglobin Sodium Potassium Chloride Carbon Dioxide BUN Creatinine Glucose POC Glucose 131 H 134 H 113 H Lactic Acid Calcium Ionized Calcium Phosphorus Magnesium Direct Bilirubin AST ALT Alkaline Phosphatase Lactate Dehydrogenase Troponin T C-Reactive Protein Total Protein Albumin Prealbumin Triglycerides Cholesterol LDL Cholesterol Direct HDL Cholesterol 25-OH Vitamin D Total PTH Intact Urine pH Urine WBC (Auto) Urine Creatinine Urine Total Protein Fluid Total Protein Vancomycin Trough Rheumatoid Factor Complement C4 Miscellaneous Test Crossmatch 11/04/16 11/04/16 11/04/16 05:41 06:00 12:10 WBC RBC Hgb Hct MCV MCH MCHC RDW Plt Count Lymph % (Auto) [place] % (Auto) Lymph # [place] # Baso # Seg Neutrophils % Seg Neuts % (Manual) Lymphocytes % (Manual) Monocytes % (Manual) Eosinophils % (Manual) Basophils % (Manual) Nucleated RBC % Seg Neutrophils # Seg Neutrophils # Man Lymphocytes # (Manual) Monocytes # (Manual) Eosinophils # (Manual) Basophils # (Manual) PT INR Fibrinogen dRVVT Confirm Interp Factor V Activity POC ABG pH POC ABG pCO2 POC ABG pO2 ABG pO2 ABG HCO3 ABG Base Excess ABG Hemoglobin Oxyhemoglobin Sodium Potassium Chloride 96.7 L Carbon Dioxide BUN 52 H Creatinine 1.9 H Glucose 126 H POC Glucose 137 H 191 H Lactic Acid Calcium Ionized Calcium Phosphorus Magnesium Direct Bilirubin AST ALT Alkaline Phosphatase Lactate Dehydrogenase Troponin T C-Reactive Protein Total Protein Albumin Prealbumin Triglycerides Cholesterol LDL Cholesterol Direct HDL Cholesterol 25-OH Vitamin D Total PTH Intact Urine pH Urine WBC (Auto) Urine Creatinine Urine Total Protein Fluid Total Protein Vancomycin Trough Rheumatoid Factor Complement C4 Miscellaneous Test Crossmatch 11/04/16 11/05/16 11/05/16 22:57 03:10 05:10 WBC RBC Hgb Hct MCV MCH MCHC RDW Plt Count Lymph % (Auto) [place] % (Auto) Lymph # [place] # Baso # Seg Neutrophils % Seg Neuts % (Manual) Lymphocytes % (Manual) Monocytes % (Manual) Eosinophils % (Manual) Basophils % (Manual) Nucleated RBC % Seg Neutrophils # Seg Neutrophils # Man Lymphocytes # (Manual) Monocytes # (Manual) Eosinophils # (Manual) Basophils # (Manual) PT INR Fibrinogen dRVVT Confirm Interp Factor V Activity POC ABG pH POC ABG pCO2 POC ABG pO2 ABG pO2 ABG HCO3 ABG Base Excess ABG Hemoglobin Oxyhemoglobin Sodium 136 L Potassium Chloride 97.2 L Carbon Dioxide BUN 32 H Creatinine 1.3 H Glucose 123 H POC Glucose 125 H 108 H Lactic Acid Calcium 7.8 L Ionized Calcium Phosphorus Magnesium Direct Bilirubin AST ALT Alkaline Phosphatase Lactate Dehydrogenase Troponin T C-Reactive Protein Total Protein Albumin Prealbumin Triglycerides Cholesterol LDL Cholesterol Direct HDL Cholesterol 25-OH Vitamin D Total PTH Intact Urine pH Urine WBC (Auto) Urine Creatinine Urine Total Protein Fluid Total Protein Vancomycin Trough Rheumatoid Factor Complement C4 Miscellaneous Test Crossmatch 11/05/16 11/05/16 11/05/16 12:23 13:09 13:25 WBC RBC Hgb Hct MCV MCH MCHC RDW Plt Count Lymph % (Auto) [place] % (Auto) Lymph # [place] # Baso # Seg Neutrophils % Seg Neuts % (Manual) Lymphocytes % (Manual) Monocytes % (Manual) Eosinophils % (Manual) Basophils % (Manual) Nucleated RBC % Seg Neutrophils # Seg Neutrophils # Man Lymphocytes # (Manual) Monocytes # (Manual) Eosinophils # (Manual) Basophils # (Manual) PT INR Fibrinogen dRVVT Confirm Interp Factor V Activity POC ABG pH POC ABG pCO2 POC ABG pO2 ABG pO2 ABG HCO3 ABG Base Excess ABG Hemoglobin Oxyhemoglobin Sodium Potassium Chloride Carbon Dioxide BUN Creatinine Glucose POC Glucose 124 H Lactic Acid Calcium Ionized Calcium Phosphorus Magnesium Direct Bilirubin AST ALT Alkaline Phosphatase Lactate Dehydrogenase Troponin T C-Reactive Protein 11.40 H Total Protein Albumin Prealbumin Triglycerides Cholesterol LDL Cholesterol Direct HDL Cholesterol 25-OH Vitamin D Total PTH Intact Urine pH 9.0 H Urine WBC (Auto) Urine Creatinine Urine Total Protein Fluid Total Protein Vancomycin Trough Rheumatoid Factor Complement C4 Miscellaneous Test Crossmatch 11/05/16 11/05/16 11/05/16 13:25 17:54 23:42 WBC RBC Hgb Hct MCV MCH MCHC RDW Plt Count Lymph % (Auto) [place] % (Auto) Lymph # [place] # Baso # Seg Neutrophils % Seg Neuts % (Manual) Lymphocytes % (Manual) Monocytes % (Manual) Eosinophils % (Manual) Basophils % (Manual) Nucleated RBC % Seg Neutrophils # Seg Neutrophils # Man Lymphocytes # (Manual) Monocytes # (Manual) Eosinophils # (Manual) Basophils # (Manual) PT INR Fibrinogen dRVVT Confirm Interp Factor V Activity POC ABG pH POC ABG pCO2 POC ABG pO2 ABG pO2 ABG HCO3 ABG Base Excess ABG Hemoglobin Oxyhemoglobin Sodium Potassium Chloride Carbon Dioxide BUN Creatinine Glucose POC Glucose 114 H 134 H Lactic Acid Calcium Ionized Calcium Phosphorus Magnesium Direct Bilirubin AST ALT Alkaline Phosphatase Lactate Dehydrogenase Troponin T C-Reactive Protein Total Protein Albumin Prealbumin Triglycerides Cholesterol LDL Cholesterol Direct HDL Cholesterol 25-OH Vitamin D Total PTH Intact Urine pH Urine WBC (Auto) Urine Creatinine Urine Total Protein Fluid Total Protein Vancomycin Trough Rheumatoid Factor Complement C4 Miscellaneous Test Flexitest 1 H Crossmatch 11/06/16 11/06/16 11/06/16 04:56 06:25 06:25 WBC RBC 2.50 L Hgb 7.3 L Hct 22.5 L MCV MCH MCHC RDW 16.9 H Plt Count Lymph % (Auto) [place] % (Auto) 10.5 H Lymph # [place] # 1.1 H Baso # Seg Neutrophils % Seg Neuts % (Manual) Lymphocytes % (Manual) Monocytes % (Manual) Eosinophils % (Manual) Basophils % (Manual) Nucleated RBC % Seg Neutrophils # Seg Neutrophils # Man Lymphocytes # (Manual) Monocytes # (Manual) Eosinophils # (Manual) Basophils # (Manual) PT INR Fibrinogen dRVVT Confirm Interp Factor V Activity POC ABG pH POC ABG pCO2 POC ABG pO2 ABG pO2 ABG HCO3 ABG Base Excess ABG Hemoglobin Oxyhemoglobin Sodium Potassium 5.1 H Chloride 95.9 L Carbon Dioxide BUN 52 H Creatinine 1.8 H Glucose 117 H POC Glucose 120 H Lactic Acid Calcium Ionized Calcium Phosphorus Magnesium Direct Bilirubin AST 103 H ALT 77 H Alkaline Phosphatase 285 H Lactate Dehydrogenase Troponin T C-Reactive Protein Total Protein 6.2 L Albumin 1.8 L Prealbumin 0.180 L Triglycerides Cholesterol LDL Cholesterol Direct HDL Cholesterol 25-OH Vitamin D Total PTH Intact Urine pH Urine WBC (Auto) Urine Creatinine Urine Total Protein Fluid Total Protein Vancomycin Trough Rheumatoid Factor Complement C4 Miscellaneous Test Crossmatch 11/06/16 11/06/16 11/06/16 11:56 17:14 23:52 WBC RBC Hgb Hct MCV MCH MCHC RDW Plt Count Lymph % (Auto) [place] % (Auto) Lymph # [place] # Baso # Seg Neutrophils % Seg Neuts % (Manual) Lymphocytes % (Manual) Monocytes % (Manual) Eosinophils % (Manual) Basophils % (Manual) Nucleated RBC % Seg Neutrophils # Seg Neutrophils # Man Lymphocytes # (Manual) Monocytes # (Manual) Eosinophils # (Manual) Basophils # (Manual) PT INR Fibrinogen dRVVT Confirm Interp Factor V Activity POC ABG pH POC ABG pCO2 POC ABG pO2 ABG pO2 ABG HCO3 ABG Base Excess ABG Hemoglobin Oxyhemoglobin Sodium Potassium Chloride Carbon Dioxide BUN Creatinine Glucose POC Glucose 141 H 125 H 130 H Lactic Acid Calcium Ionized Calcium Phosphorus Magnesium Direct Bilirubin AST ALT Alkaline Phosphatase Lactate Dehydrogenase Troponin T C-Reactive Protein Total Protein Albumin Prealbumin Triglycerides Cholesterol LDL Cholesterol Direct HDL Cholesterol 25-OH Vitamin D Total PTH Intact Urine pH Urine WBC (Auto) Urine Creatinine Urine Total Protein Fluid Total Protein Vancomycin Trough Rheumatoid Factor Complement C4 Miscellaneous Test Crossmatch 11/07/16 11/07/16 11/07/16 06:30 06:30 09:37 WBC RBC 2.18 L Hgb 6.3 L Hct 19.7 L* MCV MCH MCHC RDW 16.8 H Plt Count Lymph % (Auto) [place] % (Auto) 10.0 H Lymph # [place] # 1.0 H Baso # Seg Neutrophils % Seg Neuts % (Manual) Lymphocytes % (Manual) Monocytes % (Manual) Eosinophils % (Manual) Basophils % (Manual) Nucleated RBC % Seg Neutrophils # Seg Neutrophils # Man Lymphocytes # (Manual) Monocytes # (Manual) Eosinophils # (Manual) Basophils # (Manual) PT INR Fibrinogen dRVVT Confirm Interp Factor V Activity POC ABG pH POC ABG pCO2 POC ABG pO2 ABG pO2 ABG HCO3 ABG Base Excess ABG Hemoglobin Oxyhemoglobin Sodium 135 L Potassium Chloride 95.6 L Carbon Dioxide BUN 70 H Creatinine 2.0 H Glucose 126 H POC Glucose Lactic Acid Calcium Ionized Calcium Phosphorus Magnesium Direct Bilirubin AST ALT Alkaline Phosphatase Lactate Dehydrogenase Troponin T C-Reactive Protein Total Protein Albumin Prealbumin Triglycerides Cholesterol LDL Cholesterol Direct HDL Cholesterol 25-OH Vitamin D Total PTH Intact Urine pH Urine WBC (Auto) Urine Creatinine Urine Total Protein Fluid Total Protein Vancomycin Trough Rheumatoid Factor Complement C4 Miscellaneous Test Crossmatch See Detail 11/07/16 11/07/16 11/07/16 12:52 18:51 21:26 WBC RBC Hgb Hct MCV MCH MCHC RDW Plt Count Lymph % (Auto) [place] % (Auto) Lymph # [place] # Baso # Seg Neutrophils % Seg Neuts % (Manual) Lymphocytes % (Manual) Monocytes % (Manual) Eosinophils % (Manual) Basophils % (Manual) Nucleated RBC % Seg Neutrophils # Seg Neutrophils # Man Lymphocytes # (Manual) Monocytes # (Manual) Eosinophils # (Manual) Basophils # (Manual) PT INR Fibrinogen dRVVT Confirm Interp Factor V Activity POC ABG pH 7.523 H POC ABG pCO2 34.6 L POC ABG pO2 53 L ABG pO2 ABG HCO3 ABG Base Excess ABG Hemoglobin Oxyhemoglobin Sodium Potassium Chloride Carbon Dioxide BUN Creatinine Glucose POC Glucose 142 H 155 H Lactic Acid Calcium Ionized Calcium Phosphorus Magnesium Direct Bilirubin AST ALT Alkaline Phosphatase Lactate Dehydrogenase Troponin T C-Reactive Protein Total Protein Albumin Prealbumin Triglycerides Cholesterol LDL Cholesterol Direct HDL Cholesterol 25-OH Vitamin D Total PTH Intact Urine pH Urine WBC (Auto) Urine Creatinine Urine Total Protein Fluid Total Protein Vancomycin Trough Rheumatoid Factor Complement C4 Miscellaneous Test Crossmatch 11/07/16 11/08/16 11/08/16 21:34 13:03 23:37 WBC RBC 2.63 L Hgb 7.7 L Hct 22.7 L MCV MCH MCHC RDW 17.0 H Plt Count Lymph % (Auto) [place] % (Auto) Lymph # [place] # Baso # Seg Neutrophils % Seg Neuts % (Manual) Lymphocytes % (Manual) Monocytes % (Manual) Eosinophils % (Manual) Basophils % (Manual) Nucleated RBC % Seg Neutrophils # Seg Neutrophils # Man Lymphocytes # (Manual) Monocytes # (Manual) Eosinophils # (Manual) Basophils # (Manual) PT INR Fibrinogen dRVVT Confirm Interp Factor V Activity POC ABG pH 7.478 H POC ABG pCO2 34.0 L POC ABG pO2 50 L ABG pO2 ABG HCO3 ABG Base Excess ABG Hemoglobin Oxyhemoglobin Sodium Potassium Chloride Carbon Dioxide BUN Creatinine Glucose POC Glucose 113 H Lactic Acid Calcium Ionized Calcium Phosphorus Magnesium Direct Bilirubin AST ALT Alkaline Phosphatase Lactate Dehydrogenase Troponin T C-Reactive Protein Total Protein Albumin Prealbumin Triglycerides Cholesterol LDL Cholesterol Direct HDL Cholesterol 25-OH Vitamin D Total PTH Intact Urine pH Urine WBC (Auto) Urine Creatinine Urine Total Protein Fluid Total Protein Vancomycin Trough Rheumatoid Factor Complement C4 Miscellaneous Test Crossmatch 11/09/16 11/09/16 11/09/16 04:35 10:15 18:21 WBC RBC 2.68 L Hgb 7.8 L Hct 23.3 L MCV MCH MCHC RDW 17.0 H Plt Count Lymph % (Auto) [place] % (Auto) 12.1 H Lymph # [place] # 1.1 H Baso # Seg Neutrophils % Seg Neuts % (Manual) Lymphocytes % (Manual) Monocytes % (Manual) Eosinophils % (Manual) Basophils % (Manual) Nucleated RBC % Seg Neutrophils # Seg Neutrophils # Man Lymphocytes # (Manual) Monocytes # (Manual) Eosinophils # (Manual) Basophils # (Manual) PT INR Fibrinogen dRVVT Confirm Interp Factor V Activity POC ABG pH POC ABG pCO2 POC ABG pO2 ABG pO2 ABG HCO3 ABG Base Excess ABG Hemoglobin Oxyhemoglobin Sodium Potassium Chloride Carbon Dioxide BUN 51 H Creatinine 1.8 H Glucose POC Glucose 60 L Lactic Acid Calcium 8.3 L Ionized Calcium Phosphorus Magnesium Direct Bilirubin AST ALT Alkaline Phosphatase Lactate Dehydrogenase Troponin T C-Reactive Protein Total Protein Albumin Prealbumin Triglycerides Cholesterol LDL Cholesterol Direct HDL Cholesterol 25-OH Vitamin D Total PTH Intact Urine pH Urine WBC (Auto) Urine Creatinine Urine Total Protein Fluid Total Protein Vancomycin Trough Rheumatoid Factor Complement C4 Miscellaneous Test Crossmatch 11/09/16 11/10/16 11/10/16 18:55 07:00 11:51 WBC RBC Hgb Hct MCV MCH MCHC RDW Plt Count Lymph % (Auto) [place] % (Auto) Lymph # [place] # Baso # Seg Neutrophils % Seg Neuts % (Manual) Lymphocytes % (Manual) Monocytes % (Manual) Eosinophils % (Manual) Basophils % (Manual) Nucleated RBC % Seg Neutrophils # Seg Neutrophils # Man Lymphocytes # (Manual) Monocytes # (Manual) Eosinophils # (Manual) Basophils # (Manual) PT INR Fibrinogen dRVVT Confirm Interp Factor V Activity POC ABG pH POC ABG pCO2 POC ABG pO2 ABG pO2 ABG HCO3 ABG Base Excess ABG Hemoglobin Oxyhemoglobin Sodium Potassium 3.0 L D Chloride 97.4 L Carbon Dioxide BUN 28 H Creatinine 1.3 H Glucose POC Glucose 68 L 120 H Lactic Acid Calcium 7.8 L Ionized Calcium Phosphorus Magnesium Direct Bilirubin AST ALT Alkaline Phosphatase Lactate Dehydrogenase Troponin T C-Reactive Protein Total Protein Albumin Prealbumin Triglycerides Cholesterol LDL Cholesterol Direct HDL Cholesterol 25-OH Vitamin D Total PTH Intact Urine pH Urine WBC (Auto) Urine Creatinine Urine Total Protein Fluid Total Protein Vancomycin Trough Rheumatoid Factor Complement C4 Miscellaneous Test Crossmatch 11/10/16 11/11/16 11/11/16 14:20 06:59 06:59 WBC RBC 2.81 L Hgb 8.1 L Hct 24.4 L MCV MCH MCHC RDW 16.4 H Plt Count Lymph % (Auto) [place] % (Auto) 10.8 H Lymph # [place] # 1.0 H Baso # Seg Neutrophils % Seg Neuts % (Manual) Lymphocytes % (Manual) Monocytes % (Manual) Eosinophils % (Manual) Basophils % (Manual) Nucleated RBC % Seg Neutrophils # Seg Neutrophils # Man Lymphocytes # (Manual) Monocytes # (Manual) Eosinophils # (Manual) Basophils # (Manual) PT INR Fibrinogen dRVVT Confirm Interp Factor V Activity POC ABG pH POC ABG pCO2 POC ABG pO2 ABG pO2 ABG HCO3 ABG Base Excess ABG Hemoglobin Oxyhemoglobin Sodium Potassium Chloride Carbon Dioxide BUN Creatinine Glucose POC Glucose Lactic Acid Calcium Ionized Calcium Phosphorus Magnesium Direct Bilirubin AST ALT Alkaline Phosphatase Lactate Dehydrogenase 196 H Troponin T C-Reactive Protein Total Protein 6.1 L Albumin Prealbumin Triglycerides Cholesterol LDL Cholesterol Direct HDL Cholesterol 25-OH Vitamin D Total PTH Intact Urine pH Urine WBC (Auto) Urine Creatinine Urine Total Protein Fluid Total Protein < 3.0 L Vancomycin Trough Rheumatoid Factor Complement C4 Miscellaneous Test Crossmatch 11/11/16 11/11/16 11/12/16 06:59 09:50 04:00 WBC RBC Hgb Hct MCV MCH MCHC RDW Plt Count Lymph % (Auto) [place] % (Auto) Lymph # [place] # Baso # Seg Neutrophils % Seg Neuts % (Manual) Lymphocytes % (Manual) Monocytes % (Manual) Eosinophils % (Manual) Basophils % (Manual) Nucleated RBC % Seg Neutrophils # Seg Neutrophils # Man Lymphocytes # (Manual) Monocytes # (Manual) Eosinophils # (Manual) Basophils # (Manual) PT INR 1.18 H Fibrinogen dRVVT Confirm Interp Factor V Activity POC ABG pH POC ABG pCO2 POC ABG pO2 ABG pO2 ABG HCO3 ABG Base Excess ABG Hemoglobin Oxyhemoglobin Sodium 136 L 133 L Potassium Chloride 96.1 L 94.8 L Carbon Dioxide 21 L BUN 37 H 42 H Creatinine 1.8 H 2.0 H Glucose POC Glucose Lactic Acid Calcium Ionized Calcium Phosphorus Magnesium Direct Bilirubin AST ALT Alkaline Phosphatase Lactate Dehydrogenase Troponin T C-Reactive Protein Total Protein Albumin Prealbumin Triglycerides Cholesterol LDL Cholesterol Direct HDL Cholesterol 25-OH Vitamin D Total PTH Intact Urine pH Urine WBC (Auto) Urine Creatinine Urine Total Protein Fluid Total Protein Vancomycin Trough Rheumatoid Factor Complement C4 Miscellaneous Test Crossmatch 11/12/16 11/12/16 11/13/16 04:00 23:55 05:53 WBC RBC Hgb 8.9 L Hct 27.2 L MCV MCH MCHC RDW Plt Count Lymph % (Auto) [place] % (Auto) Lymph # [place] # Baso # Seg Neutrophils % Seg Neuts % (Manual) Lymphocytes % (Manual) Monocytes % (Manual) Eosinophils % (Manual) Basophils % (Manual) Nucleated RBC % Seg Neutrophils # Seg Neutrophils # Man Lymphocytes # (Manual) Monocytes # (Manual) Eosinophils # (Manual) Basophils # (Manual) PT INR Fibrinogen dRVVT Confirm Interp Factor V Activity POC ABG pH POC ABG pCO2 POC ABG pO2 ABG pO2 ABG HCO3 ABG Base Excess ABG Hemoglobin Oxyhemoglobin Sodium Potassium Chloride Carbon Dioxide BUN Creatinine Glucose POC Glucose 132 H 120 H Lactic Acid Calcium Ionized Calcium Phosphorus Magnesium Direct Bilirubin AST ALT Alkaline Phosphatase Lactate Dehydrogenase Troponin T C-Reactive Protein Total Protein Albumin Prealbumin Triglycerides Cholesterol LDL Cholesterol Direct HDL Cholesterol 25-OH Vitamin D Total PTH Intact Urine pH Urine WBC (Auto) Urine Creatinine Urine Total Protein Fluid Total Protein Vancomycin Trough Rheumatoid Factor Complement C4 Miscellaneous Test Crossmatch 11/13/16 11/13/16 11/13/16 11:43 17:09 23:41 WBC RBC Hgb Hct MCV MCH MCHC RDW Plt Count Lymph % (Auto) [place] % (Auto) Lymph # [place] # Baso # Seg Neutrophils % Seg Neuts % (Manual) Lymphocytes % (Manual) Monocytes % (Manual) Eosinophils % (Manual) Basophils % (Manual) Nucleated RBC % Seg Neutrophils # Seg Neutrophils # Man Lymphocytes # (Manual) Monocytes # (Manual) Eosinophils # (Manual) Basophils # (Manual) PT INR Fibrinogen dRVVT Confirm Interp Factor V Activity POC ABG pH POC ABG pCO2 POC ABG pO2 ABG pO2 ABG HCO3 ABG Base Excess ABG Hemoglobin Oxyhemoglobin Sodium Potassium Chloride Carbon Dioxide BUN Creatinine Glucose POC Glucose 114 H 113 H 108 H Lactic Acid Calcium Ionized Calcium Phosphorus Magnesium Direct Bilirubin AST ALT Alkaline Phosphatase Lactate Dehydrogenase Troponin T C-Reactive Protein Total Protein Albumin Prealbumin Triglycerides Cholesterol LDL Cholesterol Direct HDL Cholesterol 25-OH Vitamin D Total PTH Intact Urine pH Urine WBC (Auto) Urine Creatinine Urine Total Protein Fluid Total Protein Vancomycin Trough Rheumatoid Factor Complement C4 Miscellaneous Test Crossmatch 11/13/16 11/15/16 11/15/16 Unknown 00:37 03:30 WBC 11.2 H RBC 2.72 L Hgb 7.6 L Hct 23.4 L MCV MCH MCHC RDW 16.5 H Plt Count Lymph % (Auto) [place] % (Auto) Lymph # [place] # Baso # Seg Neutrophils % Seg Neuts % (Manual) Lymphocytes % (Manual) Monocytes % (Manual) Eosinophils % (Manual) Basophils % (Manual) Nucleated RBC % Seg Neutrophils # Seg Neutrophils # Man Lymphocytes # (Manual) Monocytes # (Manual) Eosinophils # (Manual) Basophils # (Manual) PT INR Fibrinogen dRVVT Confirm Interp Factor V Activity POC ABG pH POC ABG pCO2 POC ABG pO2 ABG pO2 ABG HCO3 ABG Base Excess ABG Hemoglobin Oxyhemoglobin Sodium 135 L Potassium Chloride 95.2 L Carbon Dioxide BUN 52 H Creatinine 2.2 H Glucose POC Glucose 108 H Lactic Acid Calcium Ionized Calcium Phosphorus Magnesium Direct Bilirubin AST ALT Alkaline Phosphatase Lactate Dehydrogenase Troponin T C-Reactive Protein Total Protein Albumin Prealbumin Triglycerides Cholesterol LDL Cholesterol Direct HDL Cholesterol 25-OH Vitamin D Total PTH Intact Urine pH Urine WBC (Auto) Urine Creatinine Urine Total Protein Fluid Total Protein Vancomycin Trough Rheumatoid Factor Complement C4 Miscellaneous Test Crossmatch 11/15/16 11/15/16 11/15/16 03:30 05:04 11:50 WBC RBC Hgb Hct MCV MCH MCHC RDW Plt Count Lymph % (Auto) [place] % (Auto) Lymph # [place] # Baso # Seg Neutrophils % Seg Neuts % (Manual) Lymphocytes % (Manual) Monocytes % (Manual) Eosinophils % (Manual) Basophils % (Manual) Nucleated RBC % Seg Neutrophils # Seg Neutrophils # Man Lymphocytes # (Manual) Monocytes # (Manual) Eosinophils # (Manual) Basophils # (Manual) PT INR Fibrinogen dRVVT Confirm Interp Factor V Activity POC ABG pH POC ABG pCO2 POC ABG pO2 ABG pO2 ABG HCO3 ABG Base Excess ABG Hemoglobin Oxyhemoglobin Sodium Potassium 3.4 L Chloride Carbon Dioxide BUN 25 H Creatinine 1.5 H Glucose 103 H POC Glucose 121 H 144 H Lactic Acid Calcium Ionized Calcium Phosphorus Magnesium Direct Bilirubin AST ALT Alkaline Phosphatase Lactate Dehydrogenase Troponin T C-Reactive Protein Total Protein Albumin Prealbumin Triglycerides Cholesterol LDL Cholesterol Direct HDL Cholesterol 25-OH Vitamin D Total PTH Intact Urine pH Urine WBC (Auto) Urine Creatinine Urine Total Protein Fluid Total Protein Vancomycin Trough Rheumatoid Factor Complement C4 Miscellaneous Test Crossmatch 11/15/16 11/15/16 11/16/16 21:28 23:20 11:44 WBC RBC Hgb Hct MCV MCH MCHC RDW Plt Count Lymph % (Auto) [place] % (Auto) Lymph # [place] # Baso # Seg Neutrophils % Seg Neuts % (Manual) Lymphocytes % (Manual) Monocytes % (Manual) Eosinophils % (Manual) Basophils % (Manual) Nucleated RBC % Seg Neutrophils # Seg Neutrophils # Man Lymphocytes # (Manual) Monocytes # (Manual) Eosinophils # (Manual) Basophils # (Manual) PT INR Fibrinogen dRVVT Confirm Interp Factor V Activity POC ABG pH 7.462 H POC ABG pCO2 POC ABG pO2 71 L ABG pO2 ABG HCO3 ABG Base Excess ABG Hemoglobin Oxyhemoglobin Sodium Potassium Chloride Carbon Dioxide BUN Creatinine Glucose POC Glucose 116 H 133 H Lactic Acid Calcium Ionized Calcium Phosphorus Magnesium Direct Bilirubin AST ALT Alkaline Phosphatase Lactate Dehydrogenase Troponin T C-Reactive Protein Total Protein Albumin Prealbumin Triglycerides Cholesterol LDL Cholesterol Direct HDL Cholesterol 25-OH Vitamin D Total PTH Intact Urine pH Urine WBC (Auto) Urine Creatinine Urine Total Protein Fluid Total Protein Vancomycin Trough Rheumatoid Factor Complement C4 Miscellaneous Test Crossmatch 11/16/16 11/16/16 11/16/16 12:20 17:05 23:35 WBC 11.7 H RBC 2.73 L Hgb 7.6 L Hct 23.7 L MCV MCH MCHC RDW 16.6 H Plt Count Lymph % (Auto) [place] % (Auto) Lymph # [place] # Baso # Seg Neutrophils % Seg Neuts % (Manual) Lymphocytes % (Manual) Monocytes % (Manual) Eosinophils % (Manual) Basophils % (Manual) Nucleated RBC % Seg Neutrophils # Seg Neutrophils # Man Lymphocytes # (Manual) Monocytes # (Manual) Eosinophils # (Manual) Basophils # (Manual) PT INR Fibrinogen dRVVT Confirm Interp Factor V Activity POC ABG pH POC ABG pCO2 POC ABG pO2 ABG pO2 ABG HCO3 ABG Base Excess ABG Hemoglobin Oxyhemoglobin Sodium Potassium Chloride Carbon Dioxide BUN Creatinine Glucose POC Glucose 154 H 125 H Lactic Acid Calcium Ionized Calcium Phosphorus Magnesium Direct Bilirubin AST ALT Alkaline Phosphatase Lactate Dehydrogenase Troponin T C-Reactive Protein Total Protein Albumin Prealbumin Triglycerides Cholesterol LDL Cholesterol Direct HDL Cholesterol 25-OH Vitamin D Total PTH Intact Urine pH Urine WBC (Auto) Urine Creatinine Urine Total Protein Fluid Total Protein Vancomycin Trough Rheumatoid Factor Complement C4 Miscellaneous Test Crossmatch 11/17/16 11/17/16 11/17/16 03:20 03:20 03:20 WBC RBC 2.55 L Hgb 7.3 L Hct 21.9 L MCV MCH MCHC RDW 16.6 H Plt Count Lymph % (Auto) [place] % (Auto) 11.5 H Lymph # [place] # 1.1 H Baso # Seg Neutrophils % Seg Neuts % (Manual) Lymphocytes % (Manual) Monocytes % (Manual) Eosinophils % (Manual) Basophils % (Manual) Nucleated RBC % Seg Neutrophils # Seg Neutrophils # Man Lymphocytes # (Manual) Monocytes # (Manual) Eosinophils # (Manual) Basophils # (Manual) PT 16.8 H INR 1.37 H Fibrinogen dRVVT Confirm Interp Factor V Activity POC ABG pH POC ABG pCO2 POC ABG pO2 ABG pO2 ABG HCO3 ABG Base Excess ABG Hemoglobin Oxyhemoglobin Sodium Potassium 3.5 L Chloride Carbon Dioxide BUN 21 H Creatinine Glucose POC Glucose Lactic Acid Calcium 7.9 L Ionized Calcium Phosphorus Magnesium Direct Bilirubin AST ALT Alkaline Phosphatase Lactate Dehydrogenase Troponin T C-Reactive Protein Total Protein Albumin Prealbumin Triglycerides Cholesterol LDL Cholesterol Direct HDL Cholesterol 25-OH Vitamin D Total PTH Intact Urine pH Urine WBC (Auto) Urine Creatinine Urine Total Protein Fluid Total Protein Vancomycin Trough Rheumatoid Factor Complement C4 Miscellaneous Test Crossmatch 11/17/16 11/17/16 11/17/16 06:34 11:21 21:22 WBC RBC Hgb Hct MCV MCH MCHC RDW Plt Count Lymph % (Auto) [place] % (Auto) Lymph # [place] # Baso # Seg Neutrophils % Seg Neuts % (Manual) Lymphocytes % (Manual) Monocytes % (Manual) Eosinophils % (Manual) Basophils % (Manual) Nucleated RBC % Seg Neutrophils # Seg Neutrophils # Man Lymphocytes # (Manual) Monocytes # (Manual) Eosinophils # (Manual) Basophils # (Manual) PT INR Fibrinogen dRVVT Confirm Interp Factor V Activity POC ABG pH 7.467 H POC ABG pCO2 POC ABG pO2 73 L ABG pO2 ABG HCO3 ABG Base Excess ABG Hemoglobin Oxyhemoglobin Sodium Potassium Chloride Carbon Dioxide BUN Creatinine Glucose POC Glucose 121 H 119 H Lactic Acid Calcium Ionized Calcium Phosphorus Magnesium Direct Bilirubin AST ALT Alkaline Phosphatase Lactate Dehydrogenase Troponin T C-Reactive Protein Total Protein Albumin Prealbumin Triglycerides Cholesterol LDL Cholesterol Direct HDL Cholesterol 25-OH Vitamin D Total PTH Intact Urine pH Urine WBC (Auto) Urine Creatinine Urine Total Protein Fluid Total Protein Vancomycin Trough Rheumatoid Factor Complement C4 Miscellaneous Test Crossmatch 11/18/16 11/18/16 11/19/16 12:16 17:19 00:00 WBC RBC Hgb Hct MCV MCH MCHC RDW Plt Count Lymph % (Auto) [place] % (Auto) Lymph # [place] # Baso # Seg Neutrophils % Seg Neuts % (Manual) Lymphocytes % (Manual) Monocytes % (Manual) Eosinophils % (Manual) Basophils % (Manual) Nucleated RBC % Seg Neutrophils # Seg Neutrophils # Man Lymphocytes # (Manual) Monocytes # (Manual) Eosinophils # (Manual) Basophils # (Manual) PT INR Fibrinogen dRVVT Confirm Interp Factor V Activity POC ABG pH POC ABG pCO2 POC ABG pO2 ABG pO2 ABG HCO3 ABG Base Excess ABG Hemoglobin Oxyhemoglobin Sodium Potassium Chloride Carbon Dioxide BUN Creatinine Glucose POC Glucose 124 H 162 H 139 H Lactic Acid Calcium Ionized Calcium Phosphorus Magnesium Direct Bilirubin AST ALT Alkaline Phosphatase Lactate Dehydrogenase Troponin T C-Reactive Protein Total Protein Albumin Prealbumin Triglycerides Cholesterol LDL Cholesterol Direct HDL Cholesterol 25-OH Vitamin D Total PTH Intact Urine pH Urine WBC (Auto) Urine Creatinine Urine Total Protein Fluid Total Protein Vancomycin Trough Rheumatoid Factor Complement C4 Miscellaneous Test Crossmatch 11/19/16 11/19/16 11/20/16 05:00 12:43 00:40 WBC RBC Hgb Hct MCV MCH MCHC RDW Plt Count Lymph % (Auto) [place] % (Auto) Lymph # [place] # Baso # Seg Neutrophils % Seg Neuts % (Manual) Lymphocytes % (Manual) Monocytes % (Manual) Eosinophils % (Manual) Basophils % (Manual) Nucleated RBC % Seg Neutrophils # Seg Neutrophils # Man Lymphocytes # (Manual) Monocytes # (Manual) Eosinophils # (Manual) Basophils # (Manual) PT INR Fibrinogen dRVVT Confirm Interp Factor V Activity POC ABG pH POC ABG pCO2 POC ABG pO2 ABG pO2 ABG HCO3 ABG Base Excess ABG Hemoglobin Oxyhemoglobin Sodium Potassium Chloride Carbon Dioxide BUN Creatinine Glucose POC Glucose 110 H 125 H 136 H Lactic Acid Calcium Ionized Calcium Phosphorus Magnesium Direct Bilirubin AST ALT Alkaline Phosphatase Lactate Dehydrogenase Troponin T C-Reactive Protein Total Protein Albumin Prealbumin Triglycerides Cholesterol LDL Cholesterol Direct HDL Cholesterol 25-OH Vitamin D Total PTH Intact Urine pH Urine WBC (Auto) Urine Creatinine Urine Total Protein Fluid Total Protein Vancomycin Trough Rheumatoid Factor Complement C4 Miscellaneous Test Crossmatch 11/20/16 11/20/16 11/20/16 05:00 05:00 05:51 WBC 13.1 H RBC 2.74 L Hgb 7.7 L Hct 23.6 L MCV MCH MCHC RDW 16.9 H Plt Count Lymph % (Auto) [place] % (Auto) 10.8 H Lymph # [place] # 1.4 H Baso # Seg Neutrophils % Seg Neuts % (Manual) Lymphocytes % (Manual) Monocytes % (Manual) Eosinophils % (Manual) Basophils % (Manual) Nucleated RBC % Seg Neutrophils # 7.9 H Seg Neutrophils # Man Lymphocytes # (Manual) Monocytes # (Manual) Eosinophils # (Manual) Basophils # (Manual) PT INR Fibrinogen dRVVT Confirm Interp Factor V Activity POC ABG pH POC ABG pCO2 POC ABG pO2 ABG pO2 ABG HCO3 ABG Base Excess ABG Hemoglobin Oxyhemoglobin Sodium Potassium Chloride Carbon Dioxide BUN 31 H Creatinine 1.8 H Glucose 129 H POC Glucose 133 H Lactic Acid Calcium Ionized Calcium Phosphorus Magnesium Direct Bilirubin AST ALT Alkaline Phosphatase Lactate Dehydrogenase Troponin T C-Reactive Protein Total Protein Albumin Prealbumin Triglycerides Cholesterol LDL Cholesterol Direct HDL Cholesterol 25-OH Vitamin D Total PTH Intact Urine pH Urine WBC (Auto) Urine Creatinine Urine Total Protein Fluid Total Protein Vancomycin Trough Rheumatoid Factor Complement C4 Miscellaneous Test Crossmatch 11/20/16 11/20/16 11/21/16 12:40 18:10 01:20 WBC RBC Hgb Hct MCV MCH MCHC RDW Plt Count Lymph % (Auto) [place] % (Auto) Lymph # [place] # Baso # Seg Neutrophils % Seg Neuts % (Manual) Lymphocytes % (Manual) Monocytes % (Manual) Eosinophils % (Manual) Basophils % (Manual) Nucleated RBC % Seg Neutrophils # Seg Neutrophils # Man Lymphocytes # (Manual) Monocytes # (Manual) Eosinophils # (Manual) Basophils # (Manual) PT INR Fibrinogen dRVVT Confirm Interp Factor V Activity POC ABG pH POC ABG pCO2 POC ABG pO2 ABG pO2 ABG HCO3 ABG Base Excess ABG Hemoglobin Oxyhemoglobin Sodium Potassium Chloride Carbon Dioxide BUN Creatinine Glucose POC Glucose 134 H 138 H 136 H Lactic Acid Calcium Ionized Calcium Phosphorus Magnesium Direct Bilirubin AST ALT Alkaline Phosphatase Lactate Dehydrogenase Troponin T C-Reactive Protein Total Protein Albumin Prealbumin Triglycerides Cholesterol LDL Cholesterol Direct HDL Cholesterol 25-OH Vitamin D Total PTH Intact Urine pH Urine WBC (Auto) Urine Creatinine Urine Total Protein Fluid Total Protein Vancomycin Trough Rheumatoid Factor Complement C4 Miscellaneous Test Crossmatch 11/21/16 11/21/16 11/21/16 07:04 07:45 07:45 WBC 22.0 H RBC 2.91 L Hgb 8.2 L Hct 25.4 L MCV MCH MCHC RDW 17.1 H Plt Count Lymph % (Auto) [place] % (Auto) Lymph # [place] # Baso # Seg Neutrophils % Seg Neuts % (Manual) Lymphocytes % (Manual) 8.0 L Monocytes % (Manual) Eosinophils % (Manual) Basophils % (Manual) Nucleated RBC % Seg Neutrophils # Seg Neutrophils # Man 14.7 H Lymphocytes # (Manual) Monocytes # (Manual) 1.1 H Eosinophils # (Manual) Basophils # (Manual) PT INR Fibrinogen dRVVT Confirm Interp Factor V Activity POC ABG pH POC ABG pCO2 POC ABG pO2 ABG pO2 ABG HCO3 ABG Base Excess ABG Hemoglobin Oxyhemoglobin Sodium Potassium Chloride Carbon Dioxide BUN 42 H Creatinine 2.0 H Glucose POC Glucose 108 H Lactic Acid Calcium Ionized Calcium Phosphorus Magnesium Direct Bilirubin AST ALT Alkaline Phosphatase Lactate Dehydrogenase Troponin T C-Reactive Protein Total Protein Albumin Prealbumin Triglycerides Cholesterol LDL Cholesterol Direct HDL Cholesterol 25-OH Vitamin D Total PTH Intact Urine pH Urine WBC (Auto) Urine Creatinine Urine Total Protein Fluid Total Protein Vancomycin Trough Rheumatoid Factor Complement C4 Miscellaneous Test Crossmatch 11/21/16 11/21/16 11/21/16 08:38 10:09 11:20 WBC RBC Hgb Hct MCV MCH MCHC RDW Plt Count Lymph % (Auto) [place] % (Auto) Lymph # [place] # Baso # Seg Neutrophils % Seg Neuts % (Manual) Lymphocytes % (Manual) Monocytes % (Manual) Eosinophils % (Manual) Basophils % (Manual) Nucleated RBC % Seg Neutrophils # Seg Neutrophils # Man Lymphocytes # (Manual) Monocytes # (Manual) Eosinophils # (Manual) Basophils # (Manual) PT INR Fibrinogen dRVVT Confirm Interp Factor V Activity POC ABG pH 7.346 L POC ABG pCO2 34.4 L POC ABG pO2 314 H ABG pO2 ABG HCO3 ABG Base Excess ABG Hemoglobin Oxyhemoglobin Sodium Potassium Chloride Carbon Dioxide BUN Creatinine Glucose POC Glucose 195 H 153 H Lactic Acid Calcium Ionized Calcium Phosphorus Magnesium Direct Bilirubin AST ALT Alkaline Phosphatase Lactate Dehydrogenase Troponin T C-Reactive Protein Total Protein Albumin Prealbumin Triglycerides Cholesterol LDL Cholesterol Direct HDL Cholesterol 25-OH Vitamin D Total PTH Intact Urine pH Urine WBC (Auto) Urine Creatinine Urine Total Protein Fluid Total Protein Vancomycin Trough Rheumatoid Factor Complement C4 Miscellaneous Test Crossmatch 11/21/16 11/22/16 11/22/16 23:37 04:48 05:00 WBC 29.7 H RBC 2.73 L Hgb 7.5 L Hct 24.2 L MCV MCH 27 L MCHC RDW 17.4 H Plt Count Lymph % (Auto) [place] % (Auto) Lymph # [place] # Baso # Seg Neutrophils % Seg Neuts % (Manual) Lymphocytes % (Manual) 7.0 L Monocytes % (Manual) Eosinophils % (Manual) Basophils % (Manual) Nucleated RBC % Seg Neutrophils # Seg Neutrophils # Man 15.4 H Lymphocytes # (Manual) Monocytes # (Manual) Eosinophils # (Manual) Basophils # (Manual) PT INR Fibrinogen dRVVT Confirm Interp Factor V Activity POC ABG pH POC ABG pCO2 24.6 L POC ABG pO2 189 H ABG pO2 ABG HCO3 ABG Base Excess ABG Hemoglobin Oxyhemoglobin Sodium Potassium Chloride Carbon Dioxide BUN Creatinine Glucose POC Glucose 65 L Lactic Acid Calcium Ionized Calcium Phosphorus Magnesium Direct Bilirubin AST ALT Alkaline Phosphatase Lactate Dehydrogenase Troponin T C-Reactive Protein Total Protein Albumin Prealbumin Triglycerides Cholesterol LDL Cholesterol Direct HDL Cholesterol 25-OH Vitamin D Total PTH Intact Urine pH Urine WBC (Auto) Urine Creatinine Urine Total Protein Fluid Total Protein Vancomycin Trough Rheumatoid Factor Complement C4 Miscellaneous Test Crossmatch 11/22/16 11/23/16 11/23/16 05:00 03:44 04:06 WBC RBC 2.52 L Hgb 7.2 L Hct 21.5 L MCV MCH MCHC RDW 17.1 H Plt Count Lymph % (Auto) [place] % (Auto) 12.4 H Lymph # [place] # 1.4 H Baso # Seg Neutrophils % Seg Neuts % (Manual) Lymphocytes % (Manual) Monocytes % (Manual) Eosinophils % (Manual) Basophils % (Manual) Nucleated RBC % Seg Neutrophils # Seg Neutrophils # Man Lymphocytes # (Manual) Monocytes # (Manual) Eosinophils # (Manual) Basophils # (Manual) PT INR Fibrinogen dRVVT Confirm Interp Factor V Activity POC ABG pH 7.493 H POC ABG pCO2 29.5 L POC ABG pO2 49 L ABG pO2 ABG HCO3 ABG Base Excess ABG Hemoglobin Oxyhemoglobin Sodium 134 L Potassium Chloride 95.9 L Carbon Dioxide 14 L D BUN 51 H Creatinine 2.6 H Glucose POC Glucose Lactic Acid Calcium Ionized Calcium Phosphorus Magnesium Direct Bilirubin AST ALT Alkaline Phosphatase Lactate Dehydrogenase Troponin T C-Reactive Protein Total Protein Albumin Prealbumin Triglycerides Cholesterol LDL Cholesterol Direct HDL Cholesterol 25-OH Vitamin D Total PTH Intact Urine pH Urine WBC (Auto) Urine Creatinine Urine Total Protein Fluid Total Protein Vancomycin Trough Rheumatoid Factor Complement C4 Miscellaneous Test Crossmatch 11/23/16 11/23/16 11/24/16 04:06 11:29 06:39 WBC RBC Hgb Hct MCV MCH MCHC RDW Plt Count Lymph % (Auto) [place] % (Auto) Lymph # [place] # Baso # Seg Neutrophils % Seg Neuts % (Manual) Lymphocytes % (Manual) Monocytes % (Manual) Eosinophils % (Manual) Basophils % (Manual) Nucleated RBC % Seg Neutrophils # Seg Neutrophils # Man Lymphocytes # (Manual) Monocytes # (Manual) Eosinophils # (Manual) Basophils # (Manual) PT INR Fibrinogen dRVVT Confirm Interp Factor V Activity POC ABG pH POC ABG pCO2 POC ABG pO2 ABG pO2 ABG HCO3 ABG Base Excess ABG Hemoglobin Oxyhemoglobin Sodium 136 L Potassium Chloride 95.2 L Carbon Dioxide BUN 60 H Creatinine 2.9 H Glucose POC Glucose 69 L 305 H Lactic Acid Calcium Ionized Calcium Phosphorus Magnesium 1.60 L Direct Bilirubin AST ALT Alkaline Phosphatase Lactate Dehydrogenase Troponin T C-Reactive Protein Total Protein Albumin Prealbumin Triglycerides Cholesterol LDL Cholesterol Direct HDL Cholesterol 25-OH Vitamin D Total PTH Intact Urine pH Urine WBC (Auto) Urine Creatinine Urine Total Protein Fluid Total Protein Vancomycin Trough Rheumatoid Factor Complement C4 Miscellaneous Test Crossmatch 11/24/16 11/24/16 11/24/16 06:43 08:08 08:08 WBC 11.2 H RBC 2.47 L Hgb 6.8 L Hct 20.6 L MCV MCH MCHC RDW 17.0 H Plt Count Lymph % (Auto) [place] % (Auto) 10.3 H Lymph # [place] # 1.2 H Baso # Seg Neutrophils % Seg Neuts % (Manual) Lymphocytes % (Manual) Monocytes % (Manual) Eosinophils % (Manual) Basophils % (Manual) Nucleated RBC % Seg Neutrophils # Seg Neutrophils # Man Lymphocytes # (Manual) Monocytes # (Manual) Eosinophils # (Manual) Basophils # (Manual) PT INR Fibrinogen dRVVT Confirm Interp Factor V Activity POC ABG pH POC ABG pCO2 POC ABG pO2 ABG pO2 ABG HCO3 ABG Base Excess ABG Hemoglobin Oxyhemoglobin Sodium 135 L Potassium Chloride 96.3 L Carbon Dioxide BUN 61 H Creatinine 3.1 H Glucose POC Glucose 62 L Lactic Acid Calcium 8.2 L Ionized Calcium Phosphorus Magnesium Direct Bilirubin AST ALT Alkaline Phosphatase Lactate Dehydrogenase Troponin T C-Reactive Protein Total Protein Albumin Prealbumin Triglycerides Cholesterol LDL Cholesterol Direct HDL Cholesterol 25-OH Vitamin D Total PTH Intact Urine pH Urine WBC (Auto) Urine Creatinine Urine Total Protein Fluid Total Protein Vancomycin Trough Rheumatoid Factor Complement C4 Miscellaneous Test Crossmatch 11/24/16 11/24/16 11/24/16 08:34 11:20 12:41 WBC RBC Hgb Hct MCV MCH MCHC RDW Plt Count Lymph % (Auto) [place] % (Auto) Lymph # [place] # Baso # Seg Neutrophils % Seg Neuts % (Manual) Lymphocytes % (Manual) Monocytes % (Manual) Eosinophils % (Manual) Basophils % (Manual) Nucleated RBC % Seg Neutrophils # Seg Neutrophils # Man Lymphocytes # (Manual) Monocytes # (Manual) Eosinophils # (Manual) Basophils # (Manual) PT INR Fibrinogen dRVVT Confirm Interp Factor V Activity POC ABG pH POC ABG pCO2 POC ABG pO2 ABG pO2 ABG HCO3 ABG Base Excess ABG Hemoglobin Oxyhemoglobin Sodium Potassium Chloride Carbon Dioxide BUN Creatinine Glucose POC Glucose 108 H Lactic Acid Calcium Ionized Calcium Phosphorus Magnesium 1.60 L Direct Bilirubin AST ALT Alkaline Phosphatase Lactate Dehydrogenase Troponin T C-Reactive Protein Total Protein Albumin Prealbumin Triglycerides Cholesterol LDL Cholesterol Direct HDL Cholesterol 25-OH Vitamin D Total PTH Intact Urine pH Urine WBC (Auto) Urine Creatinine Urine Total Protein Fluid Total Protein Vancomycin Trough Rheumatoid Factor Complement C4 Miscellaneous Test Crossmatch See Detail 11/25/16 11/25/16 11/25/16 00:03 04:42 04:42 WBC RBC 3.03 L Hgb 8.6 L Hct 25.3 L MCV MCH MCHC RDW 16.2 H Plt Count Lymph % (Auto) [place] % (Auto) 8.1 H Lymph # [place] # Baso # Seg Neutrophils % 71.3 H Seg Neuts % (Manual) Lymphocytes % (Manual) Monocytes % (Manual) Eosinophils % (Manual) Basophils % (Manual) Nucleated RBC % Seg Neutrophils # Seg Neutrophils # Man Lymphocytes # (Manual) Monocytes # (Manual) Eosinophils # (Manual) Basophils # (Manual) PT INR Fibrinogen dRVVT Confirm Interp Factor V Activity POC ABG pH POC ABG pCO2 POC ABG pO2 ABG pO2 ABG HCO3 ABG Base Excess ABG Hemoglobin Oxyhemoglobin Sodium Potassium Chloride Carbon Dioxide BUN 61 H Creatinine 3.0 H Glucose 102 H POC Glucose 113 H Lactic Acid Calcium 8.2 L Ionized Calcium Phosphorus Magnesium Direct Bilirubin AST ALT Alkaline Phosphatase 142 H Lactate Dehydrogenase Troponin T C-Reactive Protein Total Protein 5.7 L Albumin 1.5 L Prealbumin Triglycerides Cholesterol LDL Cholesterol Direct HDL Cholesterol 25-OH Vitamin D Total PTH Intact Urine pH Urine WBC (Auto) Urine Creatinine Urine Total Protein Fluid Total Protein Vancomycin Trough Rheumatoid Factor Complement C4 Miscellaneous Test Crossmatch 11/25/16 11/25/16 11/25/16 05:12 11:31 14:12 WBC RBC Hgb Hct MCV MCH MCHC RDW Plt Count Lymph % (Auto) [place] % (Auto) Lymph # [place] # Baso # Seg Neutrophils % Seg Neuts % (Manual) Lymphocytes % (Manual) Monocytes % (Manual) Eosinophils % (Manual) Basophils % (Manual) Nucleated RBC % Seg Neutrophils # Seg Neutrophils # Man Lymphocytes # (Manual) Monocytes # (Manual) Eosinophils # (Manual) Basophils # (Manual) PT INR Fibrinogen dRVVT Confirm Interp Factor V Activity POC ABG pH 7.487 H POC ABG pCO2 POC ABG pO2 153 H ABG pO2 ABG HCO3 ABG Base Excess ABG Hemoglobin Oxyhemoglobin Sodium Potassium Chloride Carbon Dioxide BUN Creatinine Glucose POC Glucose 131 H 140 H Lactic Acid Calcium Ionized Calcium Phosphorus Magnesium Direct Bilirubin AST ALT Alkaline Phosphatase Lactate Dehydrogenase Troponin T C-Reactive Protein Total Protein Albumin Prealbumin Triglycerides Cholesterol LDL Cholesterol Direct HDL Cholesterol 25-OH Vitamin D Total PTH Intact Urine pH Urine WBC (Auto) Urine Creatinine Urine Total Protein Fluid Total Protein Vancomycin Trough Rheumatoid Factor Complement C4 Miscellaneous Test Crossmatch 11/25/16 11/26/16 11/26/16 17:23 00:09 05:13 WBC RBC 2.94 L Hgb 8.4 L Hct 24.6 L MCV MCH MCHC RDW 16.4 H Plt Count Lymph % (Auto) [place] % (Auto) 12.3 H Lymph # [place] # 1.1 H Baso # Seg Neutrophils % Seg Neuts % (Manual) Lymphocytes % (Manual) Monocytes % (Manual) Eosinophils % (Manual) Basophils % (Manual) Nucleated RBC % Seg Neutrophils # Seg Neutrophils # Man Lymphocytes # (Manual) Monocytes # (Manual) Eosinophils # (Manual) Basophils # (Manual) PT INR Fibrinogen dRVVT Confirm Interp Factor V Activity POC ABG pH POC ABG pCO2 POC ABG pO2 ABG pO2 ABG HCO3 ABG Base Excess ABG Hemoglobin Oxyhemoglobin Sodium Potassium Chloride Carbon Dioxide BUN Creatinine Glucose POC Glucose 146 H 112 H Lactic Acid Calcium Ionized Calcium Phosphorus Magnesium Direct Bilirubin AST ALT Alkaline Phosphatase Lactate Dehydrogenase Troponin T C-Reactive Protein Total Protein Albumin Prealbumin Triglycerides Cholesterol LDL Cholesterol Direct HDL Cholesterol 25-OH Vitamin D Total PTH Intact Urine pH Urine WBC (Auto) Urine Creatinine Urine Total Protein Fluid Total Protein Vancomycin Trough Rheumatoid Factor Complement C4 Miscellaneous Test Crossmatch 11/26/16 11/26/16 11/26/16 05:13 05:28 11:53 WBC RBC Hgb Hct MCV MCH MCHC RDW Plt Count Lymph % (Auto) [place] % (Auto) Lymph # [place] # Baso # Seg Neutrophils % Seg Neuts % (Manual) Lymphocytes % (Manual) Monocytes % (Manual) Eosinophils % (Manual) Basophils % (Manual) Nucleated RBC % Seg Neutrophils # Seg Neutrophils # Man Lymphocytes # (Manual) Monocytes # (Manual) Eosinophils # (Manual) Basophils # (Manual) PT INR Fibrinogen dRVVT Confirm Interp Factor V Activity POC ABG pH POC ABG pCO2 POC ABG pO2 ABG pO2 ABG HCO3 ABG Base Excess ABG Hemoglobin Oxyhemoglobin Sodium Potassium Chloride 97.8 L Carbon Dioxide BUN 37 H Creatinine 2.0 H Glucose 109 H POC Glucose 117 H 111 H Lactic Acid Calcium 7.9 L Ionized Calcium Phosphorus 1.80 L D Magnesium Direct Bilirubin AST ALT Alkaline Phosphatase Lactate Dehydrogenase Troponin T C-Reactive Protein Total Protein Albumin Prealbumin Triglycerides Cholesterol LDL Cholesterol Direct HDL Cholesterol 25-OH Vitamin D Total PTH Intact Urine pH Urine WBC (Auto) Urine Creatinine Urine Total Protein Fluid Total Protein Vancomycin Trough Rheumatoid Factor Complement C4 Miscellaneous Test Crossmatch 11/26/16 11/27/16 11/27/16 17:14 04:50 06:02 WBC RBC Hgb Hct MCV MCH MCHC RDW Plt Count Lymph % (Auto) [place] % (Auto) Lymph # [place] # Baso # Seg Neutrophils % Seg Neuts % (Manual) Lymphocytes % (Manual) Monocytes % (Manual) Eosinophils % (Manual) Basophils % (Manual) Nucleated RBC % Seg Neutrophils # Seg Neutrophils # Man Lymphocytes # (Manual) Monocytes # (Manual) Eosinophils # (Manual) Basophils # (Manual) PT INR Fibrinogen dRVVT Confirm Interp Factor V Activity POC ABG pH POC ABG pCO2 POC ABG pO2 ABG pO2 75.2 L ABG HCO3 26.4 H ABG Base Excess ABG Hemoglobin 7.6 L Oxyhemoglobin 94.8 L Sodium Potassium Chloride Carbon Dioxide BUN 49 H Creatinine 2.3 H Glucose POC Glucose 115 H Lactic Acid Calcium Ionized Calcium Phosphorus 1.50 L Magnesium Direct Bilirubin AST ALT Alkaline Phosphatase Lactate Dehydrogenase Troponin T C-Reactive Protein Total Protein Albumin Prealbumin Triglycerides Cholesterol LDL Cholesterol Direct HDL Cholesterol 25-OH Vitamin D Total PTH Intact Urine pH Urine WBC (Auto) Urine Creatinine Urine Total Protein Fluid Total Protein Vancomycin Trough Rheumatoid Factor Complement C4 Miscellaneous Test Crossmatch 11/27/16 11/27/16 11/27/16 06:02 11:25 17:25 WBC 11.6 H RBC 2.75 L Hgb 7.6 L Hct 23.4 L MCV MCH MCHC RDW 16.5 H Plt Count Lymph % (Auto) [place] % (Auto) Lymph # [place] # Baso # Seg Neutrophils % Seg Neuts % (Manual) Lymphocytes % (Manual) Monocytes % (Manual) Eosinophils % (Manual) Basophils % (Manual) Nucleated RBC % Seg Neutrophils # Seg Neutrophils # Man Lymphocytes # (Manual) Monocytes # (Manual) Eosinophils # (Manual) Basophils # (Manual) PT INR Fibrinogen dRVVT Confirm Interp Factor V Activity POC ABG pH POC ABG pCO2 POC ABG pO2 ABG pO2 ABG HCO3 ABG Base Excess ABG Hemoglobin Oxyhemoglobin Sodium Potassium Chloride Carbon Dioxide BUN Creatinine Glucose POC Glucose 114 H 126 H Lactic Acid Calcium Ionized Calcium Phosphorus Magnesium Direct Bilirubin AST ALT Alkaline Phosphatase Lactate Dehydrogenase Troponin T C-Reactive Protein Total Protein Albumin Prealbumin Triglycerides Cholesterol LDL Cholesterol Direct HDL Cholesterol 25-OH Vitamin D Total PTH Intact Urine pH Urine WBC (Auto) Urine Creatinine Urine Total Protein Fluid Total Protein Vancomycin Trough Rheumatoid Factor Complement C4 Miscellaneous Test Crossmatch 11/28/16 11/28/16 11/28/16 04:45 05:33 05:44 WBC RBC Hgb Hct MCV MCH MCHC RDW Plt Count Lymph % (Auto) [place] % (Auto) Lymph # [place] # Baso # Seg Neutrophils % Seg Neuts % (Manual) Lymphocytes % (Manual) Monocytes % (Manual) Eosinophils % (Manual) Basophils % (Manual) Nucleated RBC % Seg Neutrophils # Seg Neutrophils # Man Lymphocytes # (Manual) Monocytes # (Manual) Eosinophils # (Manual) Basophils # (Manual) PT INR Fibrinogen dRVVT Confirm Interp Factor V Activity POC ABG pH POC ABG pCO2 POC ABG pO2 ABG pO2 99.3 H ABG HCO3 ABG Base Excess ABG Hemoglobin 8.3 L Oxyhemoglobin Sodium Potassium Chloride Carbon Dioxide BUN 63 H Creatinine 2.4 H Glucose 102 H POC Glucose 108 H Lactic Acid Calcium Ionized Calcium Phosphorus 1.80 L Magnesium Direct Bilirubin AST ALT Alkaline Phosphatase Lactate Dehydrogenase Troponin T C-Reactive Protein Total Protein Albumin Prealbumin Triglycerides Cholesterol LDL Cholesterol Direct HDL Cholesterol 25-OH Vitamin D Total PTH Intact Urine pH Urine WBC (Auto) Urine Creatinine Urine Total Protein Fluid Total Protein Vancomycin Trough Rheumatoid Factor Complement C4 Miscellaneous Test Crossmatch 11/28/16 11/28/16 11/28/16 12:31 16:09 23:46 WBC RBC Hgb Hct MCV MCH MCHC RDW Plt Count Lymph % (Auto) [place] % (Auto) Lymph # [place] # Baso # Seg Neutrophils % Seg Neuts % (Manual) Lymphocytes % (Manual) Monocytes % (Manual) Eosinophils % (Manual) Basophils % (Manual) Nucleated RBC % Seg Neutrophils # Seg Neutrophils # Man Lymphocytes # (Manual) Monocytes # (Manual) Eosinophils # (Manual) Basophils # (Manual) PT INR Fibrinogen dRVVT Confirm Interp Factor V Activity POC ABG pH POC ABG pCO2 POC ABG pO2 ABG pO2 ABG HCO3 ABG Base Excess ABG Hemoglobin Oxyhemoglobin Sodium Potassium Chloride Carbon Dioxide BUN Creatinine Glucose POC Glucose 126 H 111 H 119 H Lactic Acid Calcium Ionized Calcium Phosphorus Magnesium Direct Bilirubin AST ALT Alkaline Phosphatase Lactate Dehydrogenase Troponin T C-Reactive Protein Total Protein Albumin Prealbumin Triglycerides Cholesterol LDL Cholesterol Direct HDL Cholesterol 25-OH Vitamin D Total PTH Intact Urine pH Urine WBC (Auto) Urine Creatinine Urine Total Protein Fluid Total Protein Vancomycin Trough Rheumatoid Factor Complement C4 Miscellaneous Test Crossmatch 11/29/16 11/29/16 11/29/16 03:33 04:52 05:10 WBC RBC Hgb Hct MCV MCH MCHC RDW Plt Count Lymph % (Auto) [place] % (Auto) Lymph # [place] # Baso # Seg Neutrophils % Seg Neuts % (Manual) Lymphocytes % (Manual) Monocytes % (Manual) Eosinophils % (Manual) Basophils % (Manual) Nucleated RBC % Seg Neutrophils # Seg Neutrophils # Man Lymphocytes # (Manual) Monocytes # (Manual) Eosinophils # (Manual) Basophils # (Manual) PT INR Fibrinogen dRVVT Confirm Interp Factor V Activity POC ABG pH POC ABG pCO2 POC ABG pO2 ABG pO2 ABG HCO3 ABG Base Excess ABG Hemoglobin 7.0 L Oxyhemoglobin 94.9 L Sodium Potassium Chloride Carbon Dioxide BUN 73 H Creatinine 2.7 H Glucose POC Glucose 108 H Lactic Acid Calcium Ionized Calcium Phosphorus Magnesium Direct Bilirubin AST ALT Alkaline Phosphatase Lactate Dehydrogenase Troponin T C-Reactive Protein Total Protein Albumin Prealbumin Triglycerides Cholesterol LDL Cholesterol Direct HDL Cholesterol 25-OH Vitamin D Total PTH Intact Urine pH Urine WBC (Auto) Urine Creatinine Urine Total Protein Fluid Total Protein Vancomycin Trough Rheumatoid Factor Complement C4 Miscellaneous Test Crossmatch 11/29/16 11/29/16 11/29/16 12:16 18:05 23:46 WBC RBC Hgb Hct MCV MCH MCHC RDW Plt Count Lymph % (Auto) [place] % (Auto) Lymph # [place] # Baso # Seg Neutrophils % Seg Neuts % (Manual) Lymphocytes % (Manual) Monocytes % (Manual) Eosinophils % (Manual) Basophils % (Manual) Nucleated RBC % Seg Neutrophils # Seg Neutrophils # Man Lymphocytes # (Manual) Monocytes # (Manual) Eosinophils # (Manual) Basophils # (Manual) PT INR Fibrinogen dRVVT Confirm Interp Factor V Activity POC ABG pH POC ABG pCO2 POC ABG pO2 ABG pO2 ABG HCO3 ABG Base Excess ABG Hemoglobin Oxyhemoglobin Sodium Potassium Chloride Carbon Dioxide BUN Creatinine Glucose POC Glucose 133 H 146 H 141 H Lactic Acid Calcium Ionized Calcium Phosphorus Magnesium Direct Bilirubin AST ALT Alkaline Phosphatase Lactate Dehydrogenase Troponin T C-Reactive Protein Total Protein Albumin Prealbumin Triglycerides Cholesterol LDL Cholesterol Direct HDL Cholesterol 25-OH Vitamin D Total PTH Intact Urine pH Urine WBC (Auto) Urine Creatinine Urine Total Protein Fluid Total Protein Vancomycin Trough Rheumatoid Factor Complement C4 Miscellaneous Test Crossmatch 11/30/16 11/30/16 11/30/16 04:17 04:17 04:32 WBC 12.0 H RBC 2.80 L Hgb 7.8 L Hct 23.6 L MCV MCH MCHC RDW 16.6 H Plt Count Lymph % (Auto) [place] % (Auto) 11.3 H Lymph # [place] # 1.4 H Baso # Seg Neutrophils % Seg Neuts % (Manual) Lymphocytes % (Manual) Monocytes % (Manual) Eosinophils % (Manual) Basophils % (Manual) Nucleated RBC % Seg Neutrophils # 8.2 H Seg Neutrophils # Man Lymphocytes # (Manual) Monocytes # (Manual) Eosinophils # (Manual) Basophils # (Manual) PT INR Fibrinogen dRVVT Confirm Interp Factor V Activity POC ABG pH POC ABG pCO2 POC ABG pO2 ABG pO2 ABG HCO3 ABG Base Excess ABG Hemoglobin Oxyhemoglobin Sodium 169 H* D Potassium 5.1 H Chloride 121.5 H Carbon Dioxide BUN 34 H Creatinine 1.3 H D Glucose 133 H POC Glucose 131 H Lactic Acid Calcium 10.3 H Ionized Calcium Phosphorus Magnesium Direct Bilirubin AST ALT Alkaline Phosphatase Lactate Dehydrogenase Troponin T C-Reactive Protein Total Protein Albumin Prealbumin Triglycerides Cholesterol LDL Cholesterol Direct HDL Cholesterol 25-OH Vitamin D Total PTH Intact Urine pH Urine WBC (Auto) Urine Creatinine Urine Total Protein Fluid Total Protein Vancomycin Trough Rheumatoid Factor Complement C4 Miscellaneous Test Crossmatch 11/30/16 11/30/16 11/30/16 05:45 11:10 17:26 WBC RBC Hgb Hct MCV MCH MCHC RDW Plt Count Lymph % (Auto) [place] % (Auto) Lymph # [place] # Baso # Seg Neutrophils % Seg Neuts % (Manual) Lymphocytes % (Manual) Monocytes % (Manual) Eosinophils % (Manual) Basophils % (Manual) Nucleated RBC % Seg Neutrophils # Seg Neutrophils # Man Lymphocytes # (Manual) Monocytes # (Manual) Eosinophils # (Manual) Basophils # (Manual) PT INR Fibrinogen dRVVT Confirm Interp Factor V Activity POC ABG pH POC ABG pCO2 POC ABG pO2 ABG pO2 ABG HCO3 ABG Base Excess ABG Hemoglobin Oxyhemoglobin Sodium Potassium Chloride Carbon Dioxide BUN 45 H Creatinine 1.6 H Glucose 131 H POC Glucose 146 H 134 H Lactic Acid Calcium Ionized Calcium Phosphorus Magnesium Direct Bilirubin AST ALT Alkaline Phosphatase Lactate Dehydrogenase Troponin T C-Reactive Protein Total Protein Albumin Prealbumin Triglycerides Cholesterol LDL Cholesterol Direct HDL Cholesterol 25-OH Vitamin D Total PTH Intact Urine pH Urine WBC (Auto) Urine Creatinine Urine Total Protein Fluid Total Protein Vancomycin Trough Rheumatoid Factor Complement C4 Miscellaneous Test Crossmatch 11/30/16 12/01/16 12/01/16 23:35 00:06 03:35 WBC RBC Hgb Hct MCV MCH MCHC RDW Plt Count Lymph % (Auto) [place] % (Auto) Lymph # [place] # Baso # Seg Neutrophils % Seg Neuts % (Manual) Lymphocytes % (Manual) Monocytes % (Manual) Eosinophils % (Manual) Basophils % (Manual) Nucleated RBC % Seg Neutrophils # Seg Neutrophils # Man Lymphocytes # (Manual) Monocytes # (Manual) Eosinophils # (Manual) Basophils # (Manual) PT INR Fibrinogen dRVVT Confirm Interp Factor V Activity POC ABG pH POC ABG pCO2 POC ABG pO2 ABG pO2 ABG HCO3 ABG Base Excess ABG Hemoglobin 6.9 L Oxyhemoglobin Sodium Potassium Chloride Carbon Dioxide BUN 58 H Creatinine 1.8 H Glucose 146 H POC Glucose 151 H Lactic Acid Calcium Ionized Calcium Phosphorus Magnesium Direct Bilirubin AST ALT Alkaline Phosphatase Lactate Dehydrogenase Troponin T C-Reactive Protein Total Protein Albumin Prealbumin Triglycerides Cholesterol LDL Cholesterol Direct HDL Cholesterol 25-OH Vitamin D Total PTH Intact Urine pH Urine WBC (Auto) Urine Creatinine Urine Total Protein Fluid Total Protein Vancomycin Trough Rheumatoid Factor Complement C4 Miscellaneous Test Crossmatch 12/01/16 12/01/16 12/01/16 03:35 05:47 11:52 WBC 12.3 H RBC 2.82 L Hgb 7.8 L Hct 23.7 L MCV MCH MCHC RDW 16.7 H Plt Count Lymph % (Auto) [place] % (Auto) 9.8 H Lymph # [place] # 1.2 H Baso # Seg Neutrophils % Seg Neuts % (Manual) Lymphocytes % (Manual) Monocytes % (Manual) Eosinophils % (Manual) Basophils % (Manual) Nucleated RBC % Seg Neutrophils # 8.4 H Seg Neutrophils # Man Lymphocytes # (Manual) Monocytes # (Manual) Eosinophils # (Manual) Basophils # (Manual) PT INR Fibrinogen dRVVT Confirm Interp Factor V Activity POC ABG pH POC ABG pCO2 POC ABG pO2 ABG pO2 ABG HCO3 ABG Base Excess ABG Hemoglobin Oxyhemoglobin Sodium Potassium Chloride Carbon Dioxide BUN Creatinine Glucose POC Glucose 152 H 152 H Lactic Acid Calcium Ionized Calcium Phosphorus Magnesium Direct Bilirubin AST ALT Alkaline Phosphatase Lactate Dehydrogenase Troponin T C-Reactive Protein Total Protein Albumin Prealbumin Triglycerides Cholesterol LDL Cholesterol Direct HDL Cholesterol 25-OH Vitamin D Total PTH Intact Urine pH Urine WBC (Auto) Urine Creatinine Urine Total Protein Fluid Total Protein Vancomycin Trough Rheumatoid Factor Complement C4 Miscellaneous Test Crossmatch 12/01/16 12/01/16 12/02/16 17:40 23:41 05:00 WBC RBC Hgb Hct MCV MCH MCHC RDW Plt Count Lymph % (Auto) [place] % (Auto) Lymph # [place] # Baso # Seg Neutrophils % Seg Neuts % (Manual) Lymphocytes % (Manual) Monocytes % (Manual) Eosinophils % (Manual) Basophils % (Manual) Nucleated RBC % Seg Neutrophils # Seg Neutrophils # Man Lymphocytes # (Manual) Monocytes # (Manual) Eosinophils # (Manual) Basophils # (Manual) PT INR Fibrinogen dRVVT Confirm Interp Factor V Activity POC ABG pH POC ABG pCO2 POC ABG pO2 ABG pO2 ABG HCO3 ABG Base Excess ABG Hemoglobin Oxyhemoglobin Sodium Potassium Chloride Carbon Dioxide BUN 45 H Creatinine Glucose 115 H POC Glucose 140 H 144 H Lactic Acid Calcium Ionized Calcium Phosphorus Magnesium Direct Bilirubin AST ALT Alkaline Phosphatase Lactate Dehydrogenase Troponin T C-Reactive Protein Total Protein Albumin Prealbumin Triglycerides Cholesterol LDL Cholesterol Direct HDL Cholesterol 25-OH Vitamin D Total PTH Intact Urine pH Urine WBC (Auto) Urine Creatinine Urine Total Protein Fluid Total Protein Vancomycin Trough Rheumatoid Factor Complement C4 Miscellaneous Test Crossmatch 12/02/16 12/02/16 12/02/16 05:31 11:20 17:38 WBC RBC Hgb Hct MCV MCH MCHC RDW Plt Count Lymph % (Auto) [place] % (Auto) Lymph # [place] # Baso # Seg Neutrophils % Seg Neuts % (Manual) Lymphocytes % (Manual) Monocytes % (Manual) Eosinophils % (Manual) Basophils % (Manual) Nucleated RBC % Seg Neutrophils # Seg Neutrophils # Man Lymphocytes # (Manual) Monocytes # (Manual) Eosinophils # (Manual) Basophils # (Manual) PT INR Fibrinogen dRVVT Confirm Interp Factor V Activity POC ABG pH POC ABG pCO2 POC ABG pO2 ABG pO2 ABG HCO3 ABG Base Excess ABG Hemoglobin Oxyhemoglobin Sodium Potassium Chloride Carbon Dioxide BUN Creatinine Glucose POC Glucose 136 H 177 H 139 H Lactic Acid Calcium Ionized Calcium Phosphorus Magnesium Direct Bilirubin AST ALT Alkaline Phosphatase Lactate Dehydrogenase Troponin T C-Reactive Protein Total Protein Albumin Prealbumin Triglycerides Cholesterol LDL Cholesterol Direct HDL Cholesterol 25-OH Vitamin D Total PTH Intact Urine pH Urine WBC (Auto) Urine Creatinine Urine Total Protein Fluid Total Protein Vancomycin Trough Rheumatoid Factor Complement C4 Miscellaneous Test Crossmatch 12/02/16 12/03/16 12/03/16 23:43 04:00 04:00 WBC 20.4 H RBC 2.74 L Hgb 7.4 L Hct 23.6 L MCV MCH 27 L MCHC RDW 17.1 H Plt Count Lymph % (Auto) [place] % (Auto) Lymph # [place] # Baso # Seg Neutrophils % Seg Neuts % (Manual) 31.0 L Lymphocytes % (Manual) Monocytes % (Manual) Eosinophils % (Manual) Basophils % (Manual) Nucleated RBC % Seg Neutrophils # Seg Neutrophils # Man Lymphocytes # (Manual) Monocytes # (Manual) Eosinophils # (Manual) Basophils # (Manual) PT INR Fibrinogen dRVVT Confirm Interp Factor V Activity POC ABG pH POC ABG pCO2 POC ABG pO2 ABG pO2 ABG HCO3 ABG Base Excess ABG Hemoglobin Oxyhemoglobin Sodium Potassium Chloride Carbon Dioxide BUN 61 H Creatinine 1.6 H Glucose 119 H POC Glucose 158 H Lactic Acid Calcium Ionized Calcium Phosphorus Magnesium Direct Bilirubin AST ALT Alkaline Phosphatase Lactate Dehydrogenase Troponin T C-Reactive Protein Total Protein Albumin Prealbumin Triglycerides Cholesterol LDL Cholesterol Direct HDL Cholesterol 25-OH Vitamin D Total PTH Intact Urine pH Urine WBC (Auto) Urine Creatinine Urine Total Protein Fluid Total Protein Vancomycin Trough Rheumatoid Factor Complement C4 Miscellaneous Test Crossmatch 12/03/16 12/03/16 12/03/16 05:02 12:11 18:16 WBC RBC Hgb Hct MCV MCH MCHC RDW Plt Count Lymph % (Auto) [place] % (Auto) Lymph # [place] # Baso # Seg Neutrophils % Seg Neuts % (Manual) Lymphocytes % (Manual) Monocytes % (Manual) Eosinophils % (Manual) Basophils % (Manual) Nucleated RBC % Seg Neutrophils # Seg Neutrophils # Man Lymphocytes # (Manual) Monocytes # (Manual) Eosinophils # (Manual) Basophils # (Manual) PT INR Fibrinogen dRVVT Confirm Interp Factor V Activity POC ABG pH POC ABG pCO2 POC ABG pO2 ABG pO2 ABG HCO3 ABG Base Excess ABG Hemoglobin Oxyhemoglobin Sodium Potassium Chloride Carbon Dioxide BUN Creatinine Glucose POC Glucose 146 H 157 H 124 H Lactic Acid Calcium Ionized Calcium Phosphorus Magnesium Direct Bilirubin AST ALT Alkaline Phosphatase Lactate Dehydrogenase Troponin T C-Reactive Protein Total Protein Albumin Prealbumin Triglycerides Cholesterol LDL Cholesterol Direct HDL Cholesterol 25-OH Vitamin D Total PTH Intact Urine pH Urine WBC (Auto) Urine Creatinine Urine Total Protein Fluid Total Protein Vancomycin Trough Rheumatoid Factor Complement C4 Miscellaneous Test Crossmatch 12/03/16 12/04/16 12/04/16 23:41 04:00 04:45 WBC RBC Hgb Hct MCV MCH MCHC RDW Plt Count Lymph % (Auto) [place] % (Auto) Lymph # [place] # Baso # Seg Neutrophils % Seg Neuts % (Manual) Lymphocytes % (Manual) Monocytes % (Manual) Eosinophils % (Manual) Basophils % (Manual) Nucleated RBC % Seg Neutrophils # Seg Neutrophils # Man Lymphocytes # (Manual) Monocytes # (Manual) Eosinophils # (Manual) Basophils # (Manual) PT INR Fibrinogen dRVVT Confirm Interp Factor V Activity POC ABG pH POC ABG pCO2 POC ABG pO2 ABG pO2 ABG HCO3 ABG Base Excess ABG Hemoglobin Oxyhemoglobin Sodium Potassium Chloride Carbon Dioxide BUN 76 H Creatinine 1.6 H Glucose POC Glucose 130 H 136 H Lactic Acid Calcium Ionized Calcium Phosphorus Magnesium Direct Bilirubin AST ALT Alkaline Phosphatase 155 H Lactate Dehydrogenase Troponin T C-Reactive Protein Total Protein 5.5 L Albumin 1.5 L Prealbumin Triglycerides Cholesterol LDL Cholesterol Direct HDL Cholesterol 25-OH Vitamin D Total PTH Intact Urine pH Urine WBC (Auto) Urine Creatinine Urine Total Protein Fluid Total Protein Vancomycin Trough Rheumatoid Factor Complement C4 Miscellaneous Test Crossmatch 12/04/16 12/04/16 12/05/16 12:08 17:23 00:10 WBC RBC Hgb Hct MCV MCH MCHC RDW Plt Count Lymph % (Auto) [place] % (Auto) Lymph # [place] # Baso # Seg Neutrophils % Seg Neuts % (Manual) Lymphocytes % (Manual) Monocytes % (Manual) Eosinophils % (Manual) Basophils % (Manual) Nucleated RBC % Seg Neutrophils # Seg Neutrophils # Man Lymphocytes # (Manual) Monocytes # (Manual) Eosinophils # (Manual) Basophils # (Manual) PT INR Fibrinogen dRVVT Confirm Interp Factor V Activity POC ABG pH POC ABG pCO2 POC ABG pO2 ABG pO2 ABG HCO3 ABG Base Excess ABG Hemoglobin Oxyhemoglobin Sodium Potassium Chloride Carbon Dioxide BUN Creatinine Glucose POC Glucose 114 H 129 H 124 H Lactic Acid Calcium Ionized Calcium Phosphorus Magnesium Direct Bilirubin AST ALT Alkaline Phosphatase Lactate Dehydrogenase Troponin T C-Reactive Protein Total Protein Albumin Prealbumin Triglycerides Cholesterol LDL Cholesterol Direct HDL Cholesterol 25-OH Vitamin D Total PTH Intact Urine pH Urine WBC (Auto) Urine Creatinine Urine Total Protein Fluid Total Protein Vancomycin Trough Rheumatoid Factor Complement C4 Miscellaneous Test Crossmatch 12/05/16 12/05/16 12/05/16 05:00 05:00 05:18 WBC RBC Hgb Hct MCV MCH MCHC RDW Plt Count Lymph % (Auto) [place] % (Auto) Lymph # [place] # Baso # Seg Neutrophils % Seg Neuts % (Manual) Lymphocytes % (Manual) Monocytes % (Manual) Eosinophils % (Manual) Basophils % (Manual) Nucleated RBC % Seg Neutrophils # Seg Neutrophils # Man Lymphocytes # (Manual) Monocytes # (Manual) Eosinophils # (Manual) Basophils # (Manual) PT INR Fibrinogen dRVVT Confirm Interp Factor V Activity POC ABG pH POC ABG pCO2 POC ABG pO2 ABG pO2 ABG HCO3 ABG Base Excess ABG Hemoglobin Oxyhemoglobin Sodium Potassium Chloride Carbon Dioxide 21 L BUN 85 H Creatinine 1.9 H Glucose 131 H POC Glucose 154 H Lactic Acid Calcium Ionized Calcium Phosphorus Magnesium Direct Bilirubin AST ALT Alkaline Phosphatase Lactate Dehydrogenase Troponin T C-Reactive Protein 19.30 H Total Protein Albumin Prealbumin Triglycerides Cholesterol LDL Cholesterol Direct HDL Cholesterol 25-OH Vitamin D Total PTH Intact Urine pH Urine WBC (Auto) Urine Creatinine Urine Total Protein Fluid Total Protein Vancomycin Trough Rheumatoid Factor Complement C4 Miscellaneous Test Crossmatch 12/05/16 12/05/16 12/05/16 11:43 17:46 23:25 WBC RBC Hgb Hct MCV MCH MCHC RDW Plt Count Lymph % (Auto) [place] % (Auto) Lymph # [place] # Baso # Seg Neutrophils % Seg Neuts % (Manual) Lymphocytes % (Manual) Monocytes % (Manual) Eosinophils % (Manual) Basophils % (Manual) Nucleated RBC % Seg Neutrophils # Seg Neutrophils # Man Lymphocytes # (Manual) Monocytes # (Manual) Eosinophils # (Manual) Basophils # (Manual) PT INR Fibrinogen dRVVT Confirm Interp Factor V Activity POC ABG pH POC ABG pCO2 POC ABG pO2 ABG pO2 ABG HCO3 ABG Base Excess ABG Hemoglobin Oxyhemoglobin Sodium Potassium Chloride Carbon Dioxide BUN Creatinine Glucose POC Glucose 117 H 113 H 111 H Lactic Acid Calcium Ionized Calcium Phosphorus Magnesium Direct Bilirubin AST ALT Alkaline Phosphatase Lactate Dehydrogenase Troponin T C-Reactive Protein Total Protein Albumin Prealbumin Triglycerides Cholesterol LDL Cholesterol Direct HDL Cholesterol 25-OH Vitamin D Total PTH Intact Urine pH Urine WBC (Auto) Urine Creatinine Urine Total Protein Fluid Total Protein Vancomycin Trough Rheumatoid Factor Complement C4 Miscellaneous Test Crossmatch 12/05/16 12/06/16 12/06/16 Unknown 04:58 06:00 WBC RBC Hgb Hct MCV MCH MCHC RDW Plt Count Lymph % (Auto) [place] % (Auto) Lymph # [place] # Baso # Seg Neutrophils % Seg Neuts % (Manual) Lymphocytes % (Manual) Monocytes % (Manual) Eosinophils % (Manual) Basophils % (Manual) Nucleated RBC % Seg Neutrophils # Seg Neutrophils # Man Lymphocytes # (Manual) Monocytes # (Manual) Eosinophils # (Manual) Basophils # (Manual) PT INR Fibrinogen dRVVT Confirm Interp Factor V Activity POC ABG pH POC ABG pCO2 POC ABG pO2 ABG pO2 75.2 L ABG HCO3 ABG Base Excess -3.4 L ABG Hemoglobin 7.4 L Oxyhemoglobin 94.5 L Sodium Potassium Chloride Carbon Dioxide 20 L BUN 99 H Creatinine 2.1 H Glucose 126 H POC Glucose 145 H Lactic Acid Calcium Ionized Calcium Phosphorus 4.80 H Magnesium Direct Bilirubin AST ALT Alkaline Phosphatase Lactate Dehydrogenase Troponin T C-Reactive Protein Total Protein Albumin Prealbumin Triglycerides Cholesterol LDL Cholesterol Direct HDL Cholesterol 25-OH Vitamin D Total PTH Intact Urine pH Urine WBC (Auto) Urine Creatinine Urine Total Protein Fluid Total Protein Vancomycin Trough Rheumatoid Factor Complement C4 Miscellaneous Test Crossmatch 12/06/16 12/06/16 12/06/16 06:46 11:54 17:55 WBC RBC Hgb 8.3 L Hct 26.4 L MCV MCH MCHC RDW Plt Count Lymph % (Auto) [place] % (Auto) Lymph # [place] # Baso # Seg Neutrophils % Seg Neuts % (Manual) Lymphocytes % (Manual) Monocytes % (Manual) Eosinophils % (Manual) Basophils % (Manual) Nucleated RBC % Seg Neutrophils # Seg Neutrophils # Man Lymphocytes # (Manual) Monocytes # (Manual) Eosinophils # (Manual) Basophils # (Manual) PT INR Fibrinogen dRVVT Confirm Interp Factor V Activity POC ABG pH POC ABG pCO2 POC ABG pO2 ABG pO2 ABG HCO3 ABG Base Excess ABG Hemoglobin Oxyhemoglobin Sodium Potassium Chloride Carbon Dioxide BUN Creatinine Glucose POC Glucose 126 H 157 H Lactic Acid Calcium Ionized Calcium Phosphorus Magnesium Direct Bilirubin AST ALT Alkaline Phosphatase Lactate Dehydrogenase Troponin T C-Reactive Protein Total Protein Albumin Prealbumin Triglycerides Cholesterol LDL Cholesterol Direct HDL Cholesterol 25-OH Vitamin D Total PTH Intact Urine pH Urine WBC (Auto) Urine Creatinine Urine Total Protein Fluid Total Protein Vancomycin Trough Rheumatoid Factor Complement C4 Miscellaneous Test Crossmatch 12/06/16 12/07/16 12/07/16 23:59 05:34 06:30 WBC RBC Hgb Hct MCV MCH MCHC RDW Plt Count Lymph % (Auto) [place] % (Auto) Lymph # [place] # Baso # Seg Neutrophils % Seg Neuts % (Manual) Lymphocytes % (Manual) Monocytes % (Manual) Eosinophils % (Manual) Basophils % (Manual) Nucleated RBC % Seg Neutrophils # Seg Neutrophils # Man Lymphocytes # (Manual) Monocytes # (Manual) Eosinophils # (Manual) Basophils # (Manual) PT INR Fibrinogen dRVVT Confirm Interp Factor V Activity POC ABG pH POC ABG pCO2 POC ABG pO2 ABG pO2 ABG HCO3 ABG Base Excess ABG Hemoglobin Oxyhemoglobin Sodium Potassium Chloride Carbon Dioxide BUN 67 H Creatinine 1.4 H Glucose 126 H POC Glucose 129 H 129 H Lactic Acid Calcium Ionized Calcium Phosphorus Magnesium Direct Bilirubin AST ALT Alkaline Phosphatase Lactate Dehydrogenase Troponin T C-Reactive Protein Total Protein Albumin Prealbumin Triglycerides Cholesterol LDL Cholesterol Direct HDL Cholesterol 25-OH Vitamin D Total PTH Intact Urine pH Urine WBC (Auto) Urine Creatinine Urine Total Protein Fluid Total Protein Vancomycin Trough Rheumatoid Factor Complement C4 Miscellaneous Test Crossmatch 12/07/16 12/07/16 12/07/16 06:30 08:00 09:45 WBC 18.8 H RBC 2.52 L Hgb 6.9 L 6.8 L Hct 21.2 L 21.1 L MCV MCH 27 L MCHC RDW 18.0 H Plt Count Lymph % (Auto) [place] % (Auto) 9.9 H Lymph # [place] # 1.9 H Baso # Seg Neutrophils % 71.8 H Seg Neuts % (Manual) Lymphocytes % (Manual) Monocytes % (Manual) Eosinophils % (Manual) Basophils % (Manual) Nucleated RBC % Seg Neutrophils # 13.5 H Seg Neutrophils # Man Lymphocytes # (Manual) Monocytes # (Manual) Eosinophils # (Manual) Basophils # (Manual) PT INR Fibrinogen dRVVT Confirm Interp Factor V Activity POC ABG pH POC ABG pCO2 POC ABG pO2 ABG pO2 ABG HCO3 ABG Base Excess ABG Hemoglobin Oxyhemoglobin Sodium Potassium Chloride Carbon Dioxide BUN Creatinine Glucose POC Glucose Lactic Acid Calcium Ionized Calcium Phosphorus Magnesium Direct Bilirubin AST ALT Alkaline Phosphatase Lactate Dehydrogenase Troponin T C-Reactive Protein Total Protein Albumin Prealbumin Triglycerides Cholesterol LDL Cholesterol Direct HDL Cholesterol 25-OH Vitamin D Total PTH Intact Urine pH Urine WBC (Auto) Urine Creatinine Urine Total Protein Fluid Total Protein Vancomycin Trough Rheumatoid Factor Complement C4 Miscellaneous Test Crossmatch See Detail 12/07/16 12/07/16 12/07/16 11:44 18:19 23:59 WBC RBC Hgb Hct MCV MCH MCHC RDW Plt Count Lymph % (Auto) [place] % (Auto) Lymph # [place] # Baso # Seg Neutrophils % Seg Neuts % (Manual) Lymphocytes % (Manual) Monocytes % (Manual) Eosinophils % (Manual) Basophils % (Manual) Nucleated RBC % Seg Neutrophils # Seg Neutrophils # Man Lymphocytes # (Manual) Monocytes # (Manual) Eosinophils # (Manual) Basophils # (Manual) PT INR Fibrinogen dRVVT Confirm Interp Factor V Activity POC ABG pH POC ABG pCO2 POC ABG pO2 ABG pO2 ABG HCO3 ABG Base Excess ABG Hemoglobin Oxyhemoglobin Sodium Potassium Chloride Carbon Dioxide BUN Creatinine Glucose POC Glucose 137 H 138 H 133 H Lactic Acid Calcium Ionized Calcium Phosphorus Magnesium Direct Bilirubin AST ALT Alkaline Phosphatase Lactate Dehydrogenase Troponin T C-Reactive Protein Total Protein Albumin Prealbumin Triglycerides Cholesterol LDL Cholesterol Direct HDL Cholesterol 25-OH Vitamin D Total PTH Intact Urine pH Urine WBC (Auto) Urine Creatinine Urine Total Protein Fluid Total Protein Vancomycin Trough Rheumatoid Factor Complement C4 Miscellaneous Test Crossmatch 12/08/16 12/08/16 12/08/16 05:25 05:30 05:30 WBC 23.8 H RBC 2.88 L Hgb 8.1 L Hct 24.3 L MCV MCH MCHC RDW 16.7 H Plt Count Lymph % (Auto) [place] % (Auto) Lymph # [place] # Baso # Seg Neutrophils % Seg Neuts % (Manual) 76.0 H Lymphocytes % (Manual) 9.0 L Monocytes % (Manual) 9.0 H Eosinophils % (Manual) Basophils % (Manual) Nucleated RBC % Seg Neutrophils # Seg Neutrophils # Man 18.1 H Lymphocytes # (Manual) Monocytes # (Manual) 2.1 H Eosinophils # (Manual) Basophils # (Manual) PT INR Fibrinogen dRVVT Confirm Interp Factor V Activity POC ABG pH POC ABG pCO2 POC ABG pO2 ABG pO2 ABG HCO3 ABG Base Excess ABG Hemoglobin Oxyhemoglobin Sodium Potassium Chloride Carbon Dioxide 21 L BUN 76 H Creatinine 1.6 H Glucose 133 H POC Glucose 177 H Lactic Acid Calcium Ionized Calcium Phosphorus Magnesium Direct Bilirubin AST ALT Alkaline Phosphatase Lactate Dehydrogenase Troponin T C-Reactive Protein Total Protein Albumin Prealbumin Triglycerides Cholesterol LDL Cholesterol Direct HDL Cholesterol 25-OH Vitamin D Total PTH Intact Urine pH Urine WBC (Auto) Urine Creatinine Urine Total Protein Fluid Total Protein Vancomycin Trough Rheumatoid Factor Complement C4 Miscellaneous Test Crossmatch 12/08/16 12/08/16 12/09/16 11:45 18:00 00:00 WBC RBC Hgb Hct MCV MCH MCHC RDW Plt Count Lymph % (Auto) [place] % (Auto) Lymph # [place] # Baso # Seg Neutrophils % Seg Neuts % (Manual) Lymphocytes % (Manual) Monocytes % (Manual) Eosinophils % (Manual) Basophils % (Manual) Nucleated RBC % Seg Neutrophils # Seg Neutrophils # Man Lymphocytes # (Manual) Monocytes # (Manual) Eosinophils # (Manual) Basophils # (Manual) PT INR Fibrinogen dRVVT Confirm Interp Factor V Activity POC ABG pH POC ABG pCO2 POC ABG pO2 ABG pO2 ABG HCO3 ABG Base Excess ABG Hemoglobin Oxyhemoglobin Sodium Potassium Chloride Carbon Dioxide BUN Creatinine Glucose POC Glucose 163 H 123 H 137 H Lactic Acid Calcium Ionized Calcium Phosphorus Magnesium Direct Bilirubin AST ALT Alkaline Phosphatase Lactate Dehydrogenase Troponin T C-Reactive Protein Total Protein Albumin Prealbumin Triglycerides Cholesterol LDL Cholesterol Direct HDL Cholesterol 25-OH Vitamin D Total PTH Intact Urine pH Urine WBC (Auto) Urine Creatinine Urine Total Protein Fluid Total Protein Vancomycin Trough Rheumatoid Factor Complement C4 Miscellaneous Test Crossmatch 12/09/16 12/09/16 12/09/16 05:34 06:00 06:00 WBC 15.5 H RBC 2.87 L Hgb 8.0 L Hct 24.2 L MCV MCH MCHC RDW 17.2 H Plt Count Lymph % (Auto) [place] % (Auto) 11.6 H Lymph # [place] # 1.8 H Baso # Seg Neutrophils % 70.8 H Seg Neuts % (Manual) Lymphocytes % (Manual) Monocytes % (Manual) Eosinophils % (Manual) Basophils % (Manual) Nucleated RBC % Seg Neutrophils # 11.0 H Seg Neutrophils # Man Lymphocytes # (Manual) Monocytes # (Manual) Eosinophils # (Manual) Basophils # (Manual) PT INR Fibrinogen dRVVT Confirm Interp Factor V Activity POC ABG pH POC ABG pCO2 POC ABG pO2 ABG pO2 ABG HCO3 ABG Base Excess ABG Hemoglobin Oxyhemoglobin Sodium Potassium Chloride Carbon Dioxide BUN 51 H Creatinine Glucose 117 H POC Glucose 136 H Lactic Acid Calcium Ionized Calcium Phosphorus Magnesium Direct Bilirubin AST ALT Alkaline Phosphatase Lactate Dehydrogenase Troponin T C-Reactive Protein Total Protein Albumin Prealbumin Triglycerides Cholesterol LDL Cholesterol Direct HDL Cholesterol 25-OH Vitamin D Total PTH Intact Urine pH Urine WBC (Auto) Urine Creatinine Urine Total Protein Fluid Total Protein Vancomycin Trough Rheumatoid Factor Complement C4 Miscellaneous Test Crossmatch 12/09/16 12/09/16 12/09/16 12:29 17:52 23:10 WBC RBC Hgb Hct MCV MCH MCHC RDW Plt Count Lymph % (Auto) [place] % (Auto) Lymph # [place] # Baso # Seg Neutrophils % Seg Neuts % (Manual) Lymphocytes % (Manual) Monocytes % (Manual) Eosinophils % (Manual) Basophils % (Manual) Nucleated RBC % Seg Neutrophils # Seg Neutrophils # Man Lymphocytes # (Manual) Monocytes # (Manual) Eosinophils # (Manual) Basophils # (Manual) PT INR Fibrinogen dRVVT Confirm Interp Factor V Activity POC ABG pH POC ABG pCO2 POC ABG pO2 ABG pO2 ABG HCO3 ABG Base Excess ABG Hemoglobin Oxyhemoglobin Sodium Potassium Chloride Carbon Dioxide BUN Creatinine Glucose POC Glucose 139 H 140 H 129 H Lactic Acid Calcium Ionized Calcium Phosphorus Magnesium Direct Bilirubin AST ALT Alkaline Phosphatase Lactate Dehydrogenase Troponin T C-Reactive Protein Total Protein Albumin Prealbumin Triglycerides Cholesterol LDL Cholesterol Direct HDL Cholesterol 25-OH Vitamin D Total PTH Intact Urine pH Urine WBC (Auto) Urine Creatinine Urine Total Protein Fluid Total Protein Vancomycin Trough Rheumatoid Factor Complement C4 Miscellaneous Test Crossmatch 12/10/16 12/10/16 12/10/16 05:00 05:00 06:54 WBC 15.7 H RBC 2.87 L Hgb 8.2 L Hct 24.4 L MCV MCH MCHC RDW 17.2 H Plt Count Lymph % (Auto) [place] % (Auto) 8.3 H Lymph # [place] # 1.3 H Baso # Seg Neutrophils % 72.8 H Seg Neuts % (Manual) Lymphocytes % (Manual) Monocytes % (Manual) Eosinophils % (Manual) Basophils % (Manual) Nucleated RBC % Seg Neutrophils # 11.4 H Seg Neutrophils # Man Lymphocytes # (Manual) Monocytes # (Manual) Eosinophils # (Manual) Basophils # (Manual) PT INR Fibrinogen dRVVT Confirm Interp Factor V Activity POC ABG pH POC ABG pCO2 POC ABG pO2 ABG pO2 ABG HCO3 ABG Base Excess ABG Hemoglobin Oxyhemoglobin Sodium Potassium Chloride Carbon Dioxide BUN 64 H Creatinine 1.4 H Glucose 134 H POC Glucose 154 H Lactic Acid Calcium Ionized Calcium Phosphorus Magnesium Direct Bilirubin AST ALT Alkaline Phosphatase Lactate Dehydrogenase Troponin T C-Reactive Protein Total Protein Albumin Prealbumin Triglycerides Cholesterol LDL Cholesterol Direct HDL Cholesterol 25-OH Vitamin D Total PTH Intact Urine pH Urine WBC (Auto) Urine Creatinine Urine Total Protein Fluid Total Protein Vancomycin Trough Rheumatoid Factor Complement C4 Miscellaneous Test Crossmatch 12/10/16 12/10/16 12/10/16 11:58 17:29 23:52 WBC RBC Hgb Hct MCV MCH MCHC RDW Plt Count Lymph % (Auto) [place] % (Auto) Lymph # [place] # Baso # Seg Neutrophils % Seg Neuts % (Manual) Lymphocytes % (Manual) Monocytes % (Manual) Eosinophils % (Manual) Basophils % (Manual) Nucleated RBC % Seg Neutrophils # Seg Neutrophils # Man Lymphocytes # (Manual) Monocytes # (Manual) Eosinophils # (Manual) Basophils # (Manual) PT INR Fibrinogen dRVVT Confirm Interp Factor V Activity POC ABG pH POC ABG pCO2 POC ABG pO2 ABG pO2 ABG HCO3 ABG Base Excess ABG Hemoglobin Oxyhemoglobin Sodium Potassium Chloride Carbon Dioxide BUN Creatinine Glucose POC Glucose 144 H 163 H 125 H Lactic Acid Calcium Ionized Calcium Phosphorus Magnesium Direct Bilirubin AST ALT Alkaline Phosphatase Lactate Dehydrogenase Troponin T C-Reactive Protein Total Protein Albumin Prealbumin Triglycerides Cholesterol LDL Cholesterol Direct HDL Cholesterol 25-OH Vitamin D Total PTH Intact Urine pH Urine WBC (Auto) Urine Creatinine Urine Total Protein Fluid Total Protein Vancomycin Trough Rheumatoid Factor Complement C4 Miscellaneous Test Crossmatch 12/11/16 12/11/16 12/11/16 05:38 06:30 06:30 WBC 14.4 H RBC 2.76 L Hgb 7.7 L Hct 23.4 L MCV MCH MCHC RDW 17.2 H Plt Count Lymph % (Auto) [place] % (Auto) 8.8 H Lymph # [place] # 1.3 H Baso # Seg Neutrophils % 72.5 H Seg Neuts % (Manual) Lymphocytes % (Manual) Monocytes % (Manual) Eosinophils % (Manual) Basophils % (Manual) Nucleated RBC % Seg Neutrophils # 10.5 H Seg Neutrophils # Man Lymphocytes # (Manual) Monocytes # (Manual) Eosinophils # (Manual) Basophils # (Manual) PT INR Fibrinogen dRVVT Confirm Interp Factor V Activity POC ABG pH POC ABG pCO2 POC ABG pO2 ABG pO2 ABG HCO3 ABG Base Excess ABG Hemoglobin Oxyhemoglobin Sodium Potassium Chloride Carbon Dioxide BUN 43 H Creatinine Glucose 124 H POC Glucose 141 H Lactic Acid Calcium 8.3 L Ionized Calcium Phosphorus Magnesium 1.60 L Direct Bilirubin AST ALT Alkaline Phosphatase Lactate Dehydrogenase Troponin T C-Reactive Protein Total Protein Albumin Prealbumin Triglycerides Cholesterol LDL Cholesterol Direct HDL Cholesterol 25-OH Vitamin D Total PTH Intact Urine pH Urine WBC (Auto) Urine Creatinine Urine Total Protein Fluid Total Protein Vancomycin Trough Rheumatoid Factor Complement C4 Miscellaneous Test Crossmatch 12/11/16 12/11/16 12/11/16 11:15 17:59 23:48 WBC RBC Hgb Hct MCV MCH MCHC RDW Plt Count Lymph % (Auto) [place] % (Auto) Lymph # [place] # Baso # Seg Neutrophils % Seg Neuts % (Manual) Lymphocytes % (Manual) Monocytes % (Manual) Eosinophils % (Manual) Basophils % (Manual) Nucleated RBC % Seg Neutrophils # Seg Neutrophils # Man Lymphocytes # (Manual) Monocytes # (Manual) Eosinophils # (Manual) Basophils # (Manual) PT INR Fibrinogen dRVVT Confirm Interp Factor V Activity POC ABG pH POC ABG pCO2 POC ABG pO2 ABG pO2 ABG HCO3 ABG Base Excess ABG Hemoglobin Oxyhemoglobin Sodium Potassium Chloride Carbon Dioxide BUN Creatinine Glucose POC Glucose 188 H 106 H 119 H Lactic Acid Calcium Ionized Calcium Phosphorus Magnesium Direct Bilirubin AST ALT Alkaline Phosphatase Lactate Dehydrogenase Troponin T C-Reactive Protein Total Protein Albumin Prealbumin Triglycerides Cholesterol LDL Cholesterol Direct HDL Cholesterol 25-OH Vitamin D Total PTH Intact Urine pH Urine WBC (Auto) Urine Creatinine Urine Total Protein Fluid Total Protein Vancomycin Trough Rheumatoid Factor Complement C4 Miscellaneous Test Crossmatch 12/12/16 12/12/16 12/12/16 05:00 06:01 12:20 WBC 16.7 H RBC 2.87 L Hgb 8.0 L Hct 24.2 L MCV MCH MCHC RDW 17.6 H Plt Count Lymph % (Auto) [place] % (Auto) Lymph # [place] # 1.2 H Baso # Seg Neutrophils % 75.3 H Seg Neuts % (Manual) Lymphocytes % (Manual) Monocytes % (Manual) Eosinophils % (Manual) Basophils % (Manual) Nucleated RBC % Seg Neutrophils # 12.6 H Seg Neutrophils # Man Lymphocytes # (Manual) Monocytes # (Manual) Eosinophils # (Manual) Basophils # (Manual) PT INR Fibrinogen dRVVT Confirm Interp Factor V Activity POC ABG pH POC ABG pCO2 POC ABG pO2 ABG pO2 ABG HCO3 ABG Base Excess ABG Hemoglobin Oxyhemoglobin Sodium Potassium Chloride Carbon Dioxide BUN Creatinine Glucose POC Glucose 134 H 149 H Lactic Acid Calcium Ionized Calcium Phosphorus Magnesium Direct Bilirubin AST ALT Alkaline Phosphatase Lactate Dehydrogenase Troponin T C-Reactive Protein Total Protein Albumin Prealbumin Triglycerides Cholesterol LDL Cholesterol Direct HDL Cholesterol 25-OH Vitamin D Total PTH Intact Urine pH Urine WBC (Auto) Urine Creatinine Urine Total Protein Fluid Total Protein Vancomycin Trough Rheumatoid Factor Complement C4 Miscellaneous Test Crossmatch 12/12/16 12/12/16 12/12/16 17:38 23:01 Unknown WBC RBC Hgb Hct MCV MCH MCHC RDW Plt Count Lymph % (Auto) [place] % (Auto) Lymph # [place] # Baso # Seg Neutrophils % Seg Neuts % (Manual) Lymphocytes % (Manual) Monocytes % (Manual) Eosinophils % (Manual) Basophils % (Manual) Nucleated RBC % Seg Neutrophils # Seg Neutrophils # Man Lymphocytes # (Manual) Monocytes # (Manual) Eosinophils # (Manual) Basophils # (Manual) PT INR Fibrinogen dRVVT Confirm Interp Factor V Activity POC ABG pH POC ABG pCO2 POC ABG pO2 ABG pO2 ABG HCO3 ABG Base Excess ABG Hemoglobin Oxyhemoglobin Sodium Potassium Chloride Carbon Dioxide BUN 60 H Creatinine 1.3 H Glucose 126 H POC Glucose 127 H 144 H Lactic Acid Calcium Ionized Calcium Phosphorus Magnesium Direct Bilirubin AST ALT Alkaline Phosphatase Lactate Dehydrogenase Troponin T C-Reactive Protein Total Protein Albumin Prealbumin Triglycerides Cholesterol LDL Cholesterol Direct HDL Cholesterol 25-OH Vitamin D Total PTH Intact Urine pH Urine WBC (Auto) Urine Creatinine Urine Total Protein Fluid Total Protein Vancomycin Trough Rheumatoid Factor Complement C4 Miscellaneous Test Crossmatch 12/13/16 12/13/16 12/13/16 04:00 04:00 05:19 WBC 18.7 H RBC 2.89 L Hgb 8.3 L Hct 24.6 L MCV MCH MCHC RDW 17.5 H Plt Count Lymph % (Auto) [place] % (Auto) Lymph # [place] # 1.3 H Baso # Seg Neutrophils % 71.5 H Seg Neuts % (Manual) Lymphocytes % (Manual) Monocytes % (Manual) Eosinophils % (Manual) Basophils % (Manual) Nucleated RBC % Seg Neutrophils # 13.4 H Seg Neutrophils # Man Lymphocytes # (Manual) Monocytes # (Manual) Eosinophils # (Manual) Basophils # (Manual) PT INR Fibrinogen dRVVT Confirm Interp Factor V Activity POC ABG pH POC ABG pCO2 POC ABG pO2 ABG pO2 ABG HCO3 ABG Base Excess ABG Hemoglobin Oxyhemoglobin Sodium Potassium Chloride Carbon Dioxide BUN 73 H Creatinine 1.5 H Glucose 141 H POC Glucose 171 H Lactic Acid Calcium Ionized Calcium Phosphorus Magnesium Direct Bilirubin AST ALT Alkaline Phosphatase Lactate Dehydrogenase Troponin T C-Reactive Protein Total Protein Albumin Prealbumin Triglycerides Cholesterol LDL Cholesterol Direct HDL Cholesterol 25-OH Vitamin D Total PTH Intact Urine pH Urine WBC (Auto) Urine Creatinine Urine Total Protein Fluid Total Protein Vancomycin Trough Rheumatoid Factor Complement C4 Miscellaneous Test Crossmatch 12/13/16 12/13/16 12/14/16 12:28 16:48 00:01 WBC RBC Hgb Hct MCV MCH MCHC RDW Plt Count Lymph % (Auto) [place] % (Auto) Lymph # [place] # Baso # Seg Neutrophils % Seg Neuts % (Manual) Lymphocytes % (Manual) Monocytes % (Manual) Eosinophils % (Manual) Basophils % (Manual) Nucleated RBC % Seg Neutrophils # Seg Neutrophils # Man Lymphocytes # (Manual) Monocytes # (Manual) Eosinophils # (Manual) Basophils # (Manual) PT INR Fibrinogen dRVVT Confirm Interp Factor V Activity POC ABG pH POC ABG pCO2 POC ABG pO2 ABG pO2 ABG HCO3 ABG Base Excess ABG Hemoglobin Oxyhemoglobin Sodium Potassium Chloride Carbon Dioxide BUN Creatinine Glucose POC Glucose 206 H 173 H 139 H Lactic Acid Calcium Ionized Calcium Phosphorus Magnesium Direct Bilirubin AST ALT Alkaline Phosphatase Lactate Dehydrogenase Troponin T C-Reactive Protein Total Protein Albumin Prealbumin Triglycerides Cholesterol LDL Cholesterol Direct HDL Cholesterol 25-OH Vitamin D Total PTH Intact Urine pH Urine WBC (Auto) Urine Creatinine Urine Total Protein Fluid Total Protein Vancomycin Trough Rheumatoid Factor Complement C4 Miscellaneous Test Crossmatch 12/14/16 12/14/16 12/14/16 05:16 06:10 11:17 WBC RBC Hgb Hct MCV MCH MCHC RDW Plt Count Lymph % (Auto) [place] % (Auto) Lymph # [place] # Baso # Seg Neutrophils % Seg Neuts % (Manual) Lymphocytes % (Manual) Monocytes % (Manual) Eosinophils % (Manual) Basophils % (Manual) Nucleated RBC % Seg Neutrophils # Seg Neutrophils # Man Lymphocytes # (Manual) Monocytes # (Manual) Eosinophils # (Manual) Basophils # (Manual) PT INR Fibrinogen dRVVT Confirm Interp Factor V Activity POC ABG pH POC ABG pCO2 POC ABG pO2 ABG pO2 ABG HCO3 ABG Base Excess ABG Hemoglobin Oxyhemoglobin Sodium Potassium Chloride Carbon Dioxide BUN 57 H Creatinine 1.4 H Glucose 135 H POC Glucose 158 H 137 H Lactic Acid Calcium Ionized Calcium Phosphorus Magnesium Direct Bilirubin AST ALT Alkaline Phosphatase Lactate Dehydrogenase Troponin T C-Reactive Protein Total Protein Albumin Prealbumin Triglycerides Cholesterol LDL Cholesterol Direct HDL Cholesterol 25-OH Vitamin D Total PTH Intact Urine pH Urine WBC (Auto) Urine Creatinine Urine Total Protein Fluid Total Protein Vancomycin Trough Rheumatoid Factor Complement C4 Miscellaneous Test Crossmatch 12/14/16 12/14/16 12/15/16 17:52 23:27 04:00 WBC RBC Hgb Hct MCV MCH MCHC RDW Plt Count Lymph % (Auto) [place] % (Auto) Lymph # [place] # Baso # Seg Neutrophils % Seg Neuts % (Manual) Lymphocytes % (Manual) Monocytes % (Manual) Eosinophils % (Manual) Basophils % (Manual) Nucleated RBC % Seg Neutrophils # Seg Neutrophils # Man Lymphocytes # (Manual) Monocytes # (Manual) Eosinophils # (Manual) Basophils # (Manual) PT INR Fibrinogen dRVVT Confirm Interp Factor V Activity POC ABG pH POC ABG pCO2 POC ABG pO2 ABG pO2 ABG HCO3 ABG Base Excess ABG Hemoglobin Oxyhemoglobin Sodium Potassium Chloride 97.9 L Carbon Dioxide BUN 75 H Creatinine 1.6 H Glucose 122 H POC Glucose 149 H 163 H Lactic Acid Calcium Ionized Calcium Phosphorus 5.20 H Magnesium Direct Bilirubin AST ALT Alkaline Phosphatase Lactate Dehydrogenase Troponin T C-Reactive Protein Total Protein Albumin Prealbumin Triglycerides Cholesterol LDL Cholesterol Direct HDL Cholesterol 25-OH Vitamin D Total PTH Intact Urine pH Urine WBC (Auto) Urine Creatinine Urine Total Protein Fluid Total Protein Vancomycin Trough Rheumatoid Factor Complement C4 Miscellaneous Test Crossmatch 12/15/16 12/15/16 12/15/16 05:50 11:24 17:01 WBC RBC Hgb Hct MCV MCH MCHC RDW Plt Count Lymph % (Auto) [place] % (Auto) Lymph # [place] # Baso # Seg Neutrophils % Seg Neuts % (Manual) Lymphocytes % (Manual) Monocytes % (Manual) Eosinophils % (Manual) Basophils % (Manual) Nucleated RBC % Seg Neutrophils # Seg Neutrophils # Man Lymphocytes # (Manual) Monocytes # (Manual) Eosinophils # (Manual) Basophils # (Manual) PT INR Fibrinogen dRVVT Confirm Interp Factor V Activity POC ABG pH POC ABG pCO2 POC ABG pO2 ABG pO2 ABG HCO3 ABG Base Excess ABG Hemoglobin Oxyhemoglobin Sodium Potassium Chloride Carbon Dioxide BUN Creatinine Glucose POC Glucose 150 H 146 H 167 H Lactic Acid Calcium Ionized Calcium Phosphorus Magnesium Direct Bilirubin AST ALT Alkaline Phosphatase Lactate Dehydrogenase Troponin T C-Reactive Protein Total Protein Albumin Prealbumin Triglycerides Cholesterol LDL Cholesterol Direct HDL Cholesterol 25-OH Vitamin D Total PTH Intact Urine pH Urine WBC (Auto) Urine Creatinine Urine Total Protein Fluid Total Protein Vancomycin Trough Rheumatoid Factor Complement C4 Miscellaneous Test Crossmatch 12/15/16 12/16/16 12/16/16 23:34 05:25 11:24 WBC RBC Hgb Hct MCV MCH MCHC RDW Plt Count Lymph % (Auto) [place] % (Auto) Lymph # [place] # Baso # Seg Neutrophils % Seg Neuts % (Manual) Lymphocytes % (Manual) Monocytes % (Manual) Eosinophils % (Manual) Basophils % (Manual) Nucleated RBC % Seg Neutrophils # Seg Neutrophils # Man Lymphocytes # (Manual) Monocytes # (Manual) Eosinophils # (Manual) Basophils # (Manual) PT INR Fibrinogen dRVVT Confirm Interp Factor V Activity POC ABG pH POC ABG pCO2 POC ABG pO2 ABG pO2 ABG HCO3 ABG Base Excess ABG Hemoglobin Oxyhemoglobin Sodium Potassium Chloride Carbon Dioxide BUN Creatinine Glucose POC Glucose 127 H 139 H 165 H Lactic Acid Calcium Ionized Calcium Phosphorus Magnesium Direct Bilirubin AST ALT Alkaline Phosphatase Lactate Dehydrogenase Troponin T C-Reactive Protein Total Protein Albumin Prealbumin Triglycerides Cholesterol LDL Cholesterol Direct HDL Cholesterol 25-OH Vitamin D Total PTH Intact Urine pH Urine WBC (Auto) Urine Creatinine Urine Total Protein Fluid Total Protein Vancomycin Trough Rheumatoid Factor Complement C4 Miscellaneous Test Crossmatch 12/16/16 12/16/16 12/16/16 15:30 16:25 17:31 WBC 17.8 H RBC 2.38 L Hgb 6.4 L Hct 20.3 L MCV MCH 27 L MCHC RDW 17.4 H Plt Count Lymph % (Auto) [place] % (Auto) Lymph # [place] # Baso # Seg Neutrophils % Seg Neuts % (Manual) Lymphocytes % (Manual) Monocytes % (Manual) 10.0 H Eosinophils % (Manual) Basophils % (Manual) Nucleated RBC % Seg Neutrophils # Seg Neutrophils # Man 8.5 H Lymphocytes # (Manual) Monocytes # (Manual) 1.8 H Eosinophils # (Manual) Basophils # (Manual) PT INR Fibrinogen dRVVT Confirm Interp Factor V Activity POC ABG pH POC ABG pCO2 POC ABG pO2 ABG pO2 ABG HCO3 ABG Base Excess ABG Hemoglobin Oxyhemoglobin Sodium Potassium Chloride Carbon Dioxide BUN Creatinine Glucose POC Glucose 176 H Lactic Acid Calcium Ionized Calcium Phosphorus Magnesium Direct Bilirubin AST ALT Alkaline Phosphatase Lactate Dehydrogenase Troponin T C-Reactive Protein Total Protein Albumin Prealbumin Triglycerides Cholesterol LDL Cholesterol Direct HDL Cholesterol 25-OH Vitamin D Total PTH Intact Urine pH Urine WBC (Auto) Urine Creatinine Urine Total Protein Fluid Total Protein Vancomycin Trough Rheumatoid Factor Complement C4 Miscellaneous Test Crossmatch See Detail 12/17/16 12/17/16 12/17/16 00:14 04:00 05:00 WBC 20.0 H RBC 2.99 L Hgb 8.5 L Hct 25.7 L MCV MCH MCHC RDW 17.2 H Plt Count Lymph % (Auto) [place] % (Auto) Lymph # [place] # Baso # Seg Neutrophils % Seg Neuts % (Manual) Lymphocytes % (Manual) Monocytes % (Manual) Eosinophils % (Manual) Basophils % (Manual) Nucleated RBC % Seg Neutrophils # Seg Neutrophils # Man Lymphocytes # (Manual) Monocytes # (Manual) Eosinophils # (Manual) Basophils # (Manual) PT INR Fibrinogen dRVVT Confirm Interp Factor V Activity POC ABG pH POC ABG pCO2 POC ABG pO2 ABG pO2 ABG HCO3 ABG Base Excess ABG Hemoglobin Oxyhemoglobin Sodium Potassium Chloride 97.7 L Carbon Dioxide BUN 73 H Creatinine 1.7 H Glucose 136 H POC Glucose 148 H Lactic Acid Calcium Ionized Calcium Phosphorus 2.20 L Magnesium 2.70 H Direct Bilirubin AST ALT Alkaline Phosphatase Lactate Dehydrogenase Troponin T C-Reactive Protein Total Protein Albumin Prealbumin Triglycerides Cholesterol LDL Cholesterol Direct HDL Cholesterol 25-OH Vitamin D Total PTH Intact Urine pH Urine WBC (Auto) Urine Creatinine Urine Total Protein Fluid Total Protein Vancomycin Trough Rheumatoid Factor Complement C4 Miscellaneous Test Crossmatch 12/17/16 12/17/16 12/17/16 05:39 12:50 16:32 WBC RBC Hgb Hct MCV MCH MCHC RDW Plt Count Lymph % (Auto) [place] % (Auto) Lymph # [place] # Baso # Seg Neutrophils % Seg Neuts % (Manual) Lymphocytes % (Manual) Monocytes % (Manual) Eosinophils % (Manual) Basophils % (Manual) Nucleated RBC % Seg Neutrophils # Seg Neutrophils # Man Lymphocytes # (Manual) Monocytes # (Manual) Eosinophils # (Manual) Basophils # (Manual) PT INR Fibrinogen dRVVT Confirm Interp Factor V Activity POC ABG pH POC ABG pCO2 POC ABG pO2 ABG pO2 ABG HCO3 ABG Base Excess ABG Hemoglobin Oxyhemoglobin Sodium Potassium Chloride Carbon Dioxide BUN Creatinine Glucose POC Glucose 162 H 146 H 169 H Lactic Acid Calcium Ionized Calcium Phosphorus Magnesium Direct Bilirubin AST ALT Alkaline Phosphatase Lactate Dehydrogenase Troponin T C-Reactive Protein Total Protein Albumin Prealbumin Triglycerides Cholesterol LDL Cholesterol Direct HDL Cholesterol 25-OH Vitamin D Total PTH Intact Urine pH Urine WBC (Auto) Urine Creatinine Urine Total Protein Fluid Total Protein Vancomycin Trough Rheumatoid Factor Complement C4 Miscellaneous Test Crossmatch 12/17/16 12/18/16 12/18/16 23:57 05:00 05:32 WBC RBC Hgb Hct MCV MCH MCHC RDW Plt Count Lymph % (Auto) [place] % (Auto) Lymph # [place] # Baso # Seg Neutrophils % Seg Neuts % (Manual) Lymphocytes % (Manual) Monocytes % (Manual) Eosinophils % (Manual) Basophils % (Manual) Nucleated RBC % Seg Neutrophils # Seg Neutrophils # Man Lymphocytes # (Manual) Monocytes # (Manual) Eosinophils # (Manual) Basophils # (Manual) PT INR Fibrinogen dRVVT Confirm Interp Factor V Activity POC ABG pH POC ABG pCO2 POC ABG pO2 ABG pO2 ABG HCO3 ABG Base Excess ABG Hemoglobin Oxyhemoglobin Sodium Potassium Chloride 97.0 L Carbon Dioxide BUN 63 H Creatinine 1.4 H Glucose 174 H POC Glucose 145 H 201 H Lactic Acid Calcium Ionized Calcium Phosphorus 1.70 L D Magnesium Direct Bilirubin AST ALT Alkaline Phosphatase 257 H Lactate Dehydrogenase Troponin T C-Reactive Protein Total Protein 5.9 L Albumin 1.8 L Prealbumin Triglycerides Cholesterol LDL Cholesterol Direct HDL Cholesterol 25-OH Vitamin D Total PTH Intact Urine pH Urine WBC (Auto) Urine Creatinine Urine Total Protein Fluid Total Protein Vancomycin Trough Rheumatoid Factor Complement C4 Miscellaneous Test Crossmatch 12/18/16 12/18/16 12/18/16 11:43 16:52 23:52 WBC RBC Hgb Hct MCV MCH MCHC RDW Plt Count Lymph % (Auto) [place] % (Auto) Lymph # [place] # Baso # Seg Neutrophils % Seg Neuts % (Manual) Lymphocytes % (Manual) Monocytes % (Manual) Eosinophils % (Manual) Basophils % (Manual) Nucleated RBC % Seg Neutrophils # Seg Neutrophils # Man Lymphocytes # (Manual) Monocytes # (Manual) Eosinophils # (Manual) Basophils # (Manual) PT INR Fibrinogen dRVVT Confirm Interp Factor V Activity POC ABG pH POC ABG pCO2 POC ABG pO2 ABG pO2 ABG HCO3 ABG Base Excess ABG Hemoglobin Oxyhemoglobin Sodium Potassium Chloride Carbon Dioxide BUN Creatinine Glucose POC Glucose 177 H 110 H 162 H Lactic Acid Calcium Ionized Calcium Phosphorus Magnesium Direct Bilirubin AST ALT Alkaline Phosphatase Lactate Dehydrogenase Troponin T C-Reactive Protein Total Protein Albumin Prealbumin Triglycerides Cholesterol LDL Cholesterol Direct HDL Cholesterol 25-OH Vitamin D Total PTH Intact Urine pH Urine WBC (Auto) Urine Creatinine Urine Total Protein Fluid Total Protein Vancomycin Trough Rheumatoid Factor Complement C4 Miscellaneous Test Crossmatch 12/19/16 12/19/16 12/19/16 05:02 05:24 09:30 WBC 20.1 H RBC 2.73 L Hgb 7.6 L Hct 23.6 L MCV MCH MCHC RDW 17.6 H Plt Count Lymph % (Auto) [place] % (Auto) Lymph # [place] # Baso # Seg Neutrophils % Seg Neuts % (Manual) Lymphocytes % (Manual) 13.0 L Monocytes % (Manual) Eosinophils % (Manual) Basophils % (Manual) Nucleated RBC % 1.0 H Seg Neutrophils # Seg Neutrophils # Man 12.9 H Lymphocytes # (Manual) Monocytes # (Manual) 1.4 H Eosinophils # (Manual) Basophils # (Manual) 0.2 H PT INR Fibrinogen dRVVT Confirm Interp Factor V Activity POC ABG pH POC ABG pCO2 POC ABG pO2 ABG pO2 ABG HCO3 ABG Base Excess ABG Hemoglobin Oxyhemoglobin Sodium Potassium Chloride 97.8 L Carbon Dioxide BUN 84 H Creatinine 1.6 H Glucose 133 H POC Glucose 134 H Lactic Acid Calcium Ionized Calcium Phosphorus Magnesium Direct Bilirubin AST ALT Alkaline Phosphatase Lactate Dehydrogenase Troponin T C-Reactive Protein Total Protein Albumin Prealbumin Triglycerides Cholesterol LDL Cholesterol Direct HDL Cholesterol 25-OH Vitamin D Total PTH Intact Urine pH Urine WBC (Auto) Urine Creatinine Urine Total Protein Fluid Total Protein Vancomycin Trough Rheumatoid Factor Complement C4 Miscellaneous Test Crossmatch 12/19/16 12/19/16 12/19/16 09:36 11:12 18:29 WBC RBC Hgb Hct MCV MCH MCHC RDW Plt Count Lymph % (Auto) [place] % (Auto) Lymph # [place] # Baso # Seg Neutrophils % Seg Neuts % (Manual) Lymphocytes % (Manual) Monocytes % (Manual) Eosinophils % (Manual) Basophils % (Manual) Nucleated RBC % Seg Neutrophils # Seg Neutrophils # Man Lymphocytes # (Manual) Monocytes # (Manual) Eosinophils # (Manual) Basophils # (Manual) PT INR Fibrinogen dRVVT Confirm Interp Factor V Activity POC ABG pH 7.503 H POC ABG pCO2 30.1 L POC ABG pO2 ABG pO2 ABG HCO3 ABG Base Excess ABG Hemoglobin Oxyhemoglobin Sodium Potassium Chloride Carbon Dioxide BUN Creatinine Glucose POC Glucose 138 H 156 H Lactic Acid Calcium Ionized Calcium Phosphorus Magnesium Direct Bilirubin AST ALT Alkaline Phosphatase Lactate Dehydrogenase Troponin T C-Reactive Protein Total Protein Albumin Prealbumin Triglycerides Cholesterol LDL Cholesterol Direct HDL Cholesterol 25-OH Vitamin D Total PTH Intact Urine pH Urine WBC (Auto) Urine Creatinine Urine Total Protein Fluid Total Protein Vancomycin Trough Rheumatoid Factor Complement C4 Miscellaneous Test Crossmatch 12/20/16 12/20/16 12/20/16 00:03 06:17 07:07 WBC RBC Hgb Hct MCV MCH MCHC RDW Plt Count Lymph % (Auto) [place] % (Auto) Lymph # [place] # Baso # Seg Neutrophils % Seg Neuts % (Manual) Lymphocytes % (Manual) Monocytes % (Manual) Eosinophils % (Manual) Basophils % (Manual) Nucleated RBC % Seg Neutrophils # Seg Neutrophils # Man Lymphocytes # (Manual) Monocytes # (Manual) Eosinophils # (Manual) Basophils # (Manual) PT INR Fibrinogen dRVVT Confirm Interp Factor V Activity POC ABG pH POC ABG pCO2 POC ABG pO2 ABG pO2 ABG HCO3 ABG Base Excess ABG Hemoglobin Oxyhemoglobin Sodium Potassium Chloride 97.1 L Carbon Dioxide 20 L BUN 97 H Creatinine 1.8 H Glucose 153 H POC Glucose 152 H 175 H Lactic Acid Calcium Ionized Calcium Phosphorus Magnesium Direct Bilirubin AST ALT Alkaline Phosphatase Lactate Dehydrogenase Troponin T C-Reactive Protein Total Protein Albumin Prealbumin Triglycerides Cholesterol LDL Cholesterol Direct HDL Cholesterol 25-OH Vitamin D Total PTH Intact Urine pH Urine WBC (Auto) Urine Creatinine Urine Total Protein Fluid Total Protein Vancomycin Trough Rheumatoid Factor Complement C4 Miscellaneous Test Crossmatch 12/20/16 12/20/16 12/20/16 12:00 17:42 23:53 WBC RBC Hgb Hct MCV MCH MCHC RDW Plt Count Lymph % (Auto) [place] % (Auto) Lymph # [place] # Baso # Seg Neutrophils % Seg Neuts % (Manual) Lymphocytes % (Manual) Monocytes % (Manual) Eosinophils % (Manual) Basophils % (Manual) Nucleated RBC % Seg Neutrophils # Seg Neutrophils # Man Lymphocytes # (Manual) Monocytes # (Manual) Eosinophils # (Manual) Basophils # (Manual) PT INR Fibrinogen dRVVT Confirm Interp Factor V Activity POC ABG pH POC ABG pCO2 POC ABG pO2 ABG pO2 ABG HCO3 ABG Base Excess ABG Hemoglobin Oxyhemoglobin Sodium Potassium Chloride Carbon Dioxide BUN Creatinine Glucose POC Glucose 141 H 156 H 132 H Lactic Acid Calcium Ionized Calcium Phosphorus Magnesium Direct Bilirubin AST ALT Alkaline Phosphatase Lactate Dehydrogenase Troponin T C-Reactive Protein Total Protein Albumin Prealbumin Triglycerides Cholesterol LDL Cholesterol Direct HDL Cholesterol 25-OH Vitamin D Total PTH Intact Urine pH Urine WBC (Auto) Urine Creatinine Urine Total Protein Fluid Total Protein Vancomycin Trough Rheumatoid Factor Complement C4 Miscellaneous Test Crossmatch 12/21/16 12/21/16 12/21/16 05:49 08:50 12:19 WBC RBC Hgb Hct MCV MCH MCHC RDW Plt Count Lymph % (Auto) [place] % (Auto) Lymph # [place] # Baso # Seg Neutrophils % Seg Neuts % (Manual) Lymphocytes % (Manual) Monocytes % (Manual) Eosinophils % (Manual) Basophils % (Manual) Nucleated RBC % Seg Neutrophils # Seg Neutrophils # Man Lymphocytes # (Manual) Monocytes # (Manual) Eosinophils # (Manual) Basophils # (Manual) PT INR Fibrinogen dRVVT Confirm Interp Factor V Activity POC ABG pH POC ABG pCO2 POC ABG pO2 ABG pO2 ABG HCO3 ABG Base Excess ABG Hemoglobin Oxyhemoglobin Sodium Potassium 5.2 H D Chloride Carbon Dioxide BUN 63 H Creatinine Glucose 122 H POC Glucose 132 H 136 H Lactic Acid Calcium 8.3 L Ionized Calcium Phosphorus Magnesium Direct Bilirubin AST ALT Alkaline Phosphatase Lactate Dehydrogenase Troponin T C-Reactive Protein Total Protein Albumin Prealbumin Triglycerides Cholesterol LDL Cholesterol Direct HDL Cholesterol 25-OH Vitamin D Total PTH Intact Urine pH Urine WBC (Auto) Urine Creatinine Urine Total Protein Fluid Total Protein Vancomycin Trough Rheumatoid Factor Complement C4 Miscellaneous Test Crossmatch 12/21/16 12/21/16 12/22/16 17:22 23:58 05:49 WBC RBC Hgb Hct MCV MCH MCHC RDW Plt Count Lymph % (Auto) [place] % (Auto) Lymph # [place] # Baso # Seg Neutrophils % Seg Neuts % (Manual) Lymphocytes % (Manual) Monocytes % (Manual) Eosinophils % (Manual) Basophils % (Manual) Nucleated RBC % Seg Neutrophils # Seg Neutrophils # Man Lymphocytes # (Manual) Monocytes # (Manual) Eosinophils # (Manual) Basophils # (Manual) PT INR Fibrinogen dRVVT Confirm Interp Factor V Activity POC ABG pH POC ABG pCO2 POC ABG pO2 ABG pO2 ABG HCO3 ABG Base Excess ABG Hemoglobin Oxyhemoglobin Sodium Potassium Chloride Carbon Dioxide BUN Creatinine Glucose POC Glucose 135 H 149 H 140 H Lactic Acid Calcium Ionized Calcium Phosphorus Magnesium Direct Bilirubin AST ALT Alkaline Phosphatase Lactate Dehydrogenase Troponin T C-Reactive Protein Total Protein Albumin Prealbumin Triglycerides Cholesterol LDL Cholesterol Direct HDL Cholesterol 25-OH Vitamin D Total PTH Intact Urine pH Urine WBC (Auto) Urine Creatinine Urine Total Protein Fluid Total Protein Vancomycin Trough Rheumatoid Factor Complement C4 Miscellaneous Test Crossmatch 12/22/16 12/22/16 12/22/16 06:10 11:17 17:31 WBC RBC Hgb Hct MCV MCH MCHC RDW Plt Count Lymph % (Auto) [place] % (Auto) Lymph # [place] # Baso # Seg Neutrophils % Seg Neuts % (Manual) Lymphocytes % (Manual) Monocytes % (Manual) Eosinophils % (Manual) Basophils % (Manual) Nucleated RBC % Seg Neutrophils # Seg Neutrophils # Man Lymphocytes # (Manual) Monocytes # (Manual) Eosinophils # (Manual) Basophils # (Manual) PT INR Fibrinogen dRVVT Confirm Interp Factor V Activity POC ABG pH POC ABG pCO2 POC ABG pO2 ABG pO2 ABG HCO3 ABG Base Excess ABG Hemoglobin Oxyhemoglobin Sodium Potassium Chloride Carbon Dioxide BUN 76 H Creatinine 1.5 H Glucose 241 H POC Glucose 193 H 148 H Lactic Acid Calcium Ionized Calcium Phosphorus Magnesium Direct Bilirubin AST ALT Alkaline Phosphatase Lactate Dehydrogenase Troponin T C-Reactive Protein Total Protein Albumin Prealbumin Triglycerides Cholesterol LDL Cholesterol Direct HDL Cholesterol 25-OH Vitamin D Total PTH Intact Urine pH Urine WBC (Auto) Urine Creatinine Urine Total Protein Fluid Total Protein Vancomycin Trough Rheumatoid Factor Complement C4 Miscellaneous Test Crossmatch 12/22/16 12/23/16 12/23/16 23:58 05:00 05:26 WBC RBC Hgb Hct MCV MCH MCHC RDW Plt Count Lymph % (Auto) [place] % (Auto) Lymph # [place] # Baso # Seg Neutrophils % Seg Neuts % (Manual) Lymphocytes % (Manual) Monocytes % (Manual) Eosinophils % (Manual) Basophils % (Manual) Nucleated RBC % Seg Neutrophils # Seg Neutrophils # Man Lymphocytes # (Manual) Monocytes # (Manual) Eosinophils # (Manual) Basophils # (Manual) PT INR Fibrinogen dRVVT Confirm Interp Factor V Activity POC ABG pH POC ABG pCO2 POC ABG pO2 ABG pO2 ABG HCO3 ABG Base Excess ABG Hemoglobin Oxyhemoglobin Sodium Potassium Chloride Carbon Dioxide BUN 49 H Creatinine Glucose 143 H POC Glucose 165 H 154 H Lactic Acid Calcium 8.2 L Ionized Calcium Phosphorus Magnesium 1.60 L Direct Bilirubin AST ALT Alkaline Phosphatase Lactate Dehydrogenase Troponin T C-Reactive Protein Total Protein Albumin Prealbumin Triglycerides Cholesterol LDL Cholesterol Direct HDL Cholesterol 25-OH Vitamin D Total PTH Intact Urine pH Urine WBC (Auto) Urine Creatinine Urine Total Protein Fluid Total Protein Vancomycin Trough Rheumatoid Factor Complement C4 Miscellaneous Test Crossmatch 12/23/16 12/23/16 12/24/16 12:35 17:01 00:01 WBC RBC Hgb Hct MCV MCH MCHC RDW Plt Count Lymph % (Auto) [place] % (Auto) Lymph # [place] # Baso # Seg Neutrophils % Seg Neuts % (Manual) Lymphocytes % (Manual) Monocytes % (Manual) Eosinophils % (Manual) Basophils % (Manual) Nucleated RBC % Seg Neutrophils # Seg Neutrophils # Man Lymphocytes # (Manual) Monocytes # (Manual) Eosinophils # (Manual) Basophils # (Manual) PT INR Fibrinogen dRVVT Confirm Interp Factor V Activity POC ABG pH POC ABG pCO2 POC ABG pO2 ABG pO2 ABG HCO3 ABG Base Excess ABG Hemoglobin Oxyhemoglobin Sodium Potassium Chloride Carbon Dioxide BUN Creatinine Glucose POC Glucose 164 H 149 H 135 H Lactic Acid Calcium Ionized Calcium Phosphorus Magnesium Direct Bilirubin AST ALT Alkaline Phosphatase Lactate Dehydrogenase Troponin T C-Reactive Protein Total Protein Albumin Prealbumin Triglycerides Cholesterol LDL Cholesterol Direct HDL Cholesterol 25-OH Vitamin D Total PTH Intact Urine pH Urine WBC (Auto) Urine Creatinine Urine Total Protein Fluid Total Protein Vancomycin Trough Rheumatoid Factor Complement C4 Miscellaneous Test Crossmatch 12/24/16 12/24/16 12/24/16 05:41 07:01 11:38 WBC RBC Hgb Hct MCV MCH MCHC RDW Plt Count Lymph % (Auto) [place] % (Auto) Lymph # [place] # Baso # Seg Neutrophils % Seg Neuts % (Manual) Lymphocytes % (Manual) Monocytes % (Manual) Eosinophils % (Manual) Basophils % (Manual) Nucleated RBC % Seg Neutrophils # Seg Neutrophils # Man Lymphocytes # (Manual) Monocytes # (Manual) Eosinophils # (Manual) Basophils # (Manual) PT INR Fibrinogen dRVVT Confirm Interp Factor V Activity POC ABG pH POC ABG pCO2 POC ABG pO2 ABG pO2 ABG HCO3 ABG Base Excess ABG Hemoglobin Oxyhemoglobin Sodium Potassium Chloride Carbon Dioxide BUN 72 H Creatinine 1.3 H Glucose 130 H POC Glucose 132 H 156 H Lactic Acid Calcium 8.2 L Ionized Calcium Phosphorus Magnesium Direct Bilirubin AST ALT Alkaline Phosphatase Lactate Dehydrogenase Troponin T C-Reactive Protein Total Protein Albumin Prealbumin Triglycerides Cholesterol LDL Cholesterol Direct HDL Cholesterol 25-OH Vitamin D Total PTH Intact Urine pH Urine WBC (Auto) Urine Creatinine Urine Total Protein Fluid Total Protein Vancomycin Trough Rheumatoid Factor Complement C4 Miscellaneous Test Crossmatch 12/24/16 12/25/16 12/25/16 17:53 00:23 05:45 WBC RBC Hgb Hct MCV MCH MCHC RDW Plt Count Lymph % (Auto) [place] % (Auto) Lymph # [place] # Baso # Seg Neutrophils % Seg Neuts % (Manual) Lymphocytes % (Manual) Monocytes % (Manual) Eosinophils % (Manual) Basophils % (Manual) Nucleated RBC % Seg Neutrophils # Seg Neutrophils # Man Lymphocytes # (Manual) Monocytes # (Manual) Eosinophils # (Manual) Basophils # (Manual) PT INR Fibrinogen dRVVT Confirm Interp Factor V Activity POC ABG pH POC ABG pCO2 POC ABG pO2 ABG pO2 ABG HCO3 ABG Base Excess ABG Hemoglobin Oxyhemoglobin Sodium 146 H Potassium Chloride Carbon Dioxide BUN 51 H Creatinine Glucose 109 H POC Glucose 169 H 117 H Lactic Acid Calcium Ionized Calcium Phosphorus Magnesium Direct Bilirubin AST ALT Alkaline Phosphatase Lactate Dehydrogenase Troponin T C-Reactive Protein Total Protein Albumin Prealbumin Triglycerides Cholesterol LDL Cholesterol Direct HDL Cholesterol 25-OH Vitamin D Total PTH Intact Urine pH Urine WBC (Auto) Urine Creatinine Urine Total Protein Fluid Total Protein Vancomycin Trough Rheumatoid Factor Complement C4 Miscellaneous Test Crossmatch 12/25/16 12/25/16 12/25/16 06:43 11:29 17:14 WBC RBC Hgb Hct MCV MCH MCHC RDW Plt Count Lymph % (Auto) [place] % (Auto) Lymph # [place] # Baso # Seg Neutrophils % Seg Neuts % (Manual) Lymphocytes % (Manual) Monocytes % (Manual) Eosinophils % (Manual) Basophils % (Manual) Nucleated RBC % Seg Neutrophils # Seg Neutrophils # Man Lymphocytes # (Manual) Monocytes # (Manual) Eosinophils # (Manual) Basophils # (Manual) PT INR Fibrinogen dRVVT Confirm Interp Factor V Activity POC ABG pH POC ABG pCO2 POC ABG pO2 ABG pO2 ABG HCO3 ABG Base Excess ABG Hemoglobin Oxyhemoglobin Sodium Potassium Chloride Carbon Dioxide BUN Creatinine Glucose POC Glucose 117 H 128 H 120 H Lactic Acid Calcium Ionized Calcium Phosphorus Magnesium Direct Bilirubin AST ALT Alkaline Phosphatase Lactate Dehydrogenase Troponin T C-Reactive Protein Total Protein Albumin Prealbumin Triglycerides Cholesterol LDL Cholesterol Direct HDL Cholesterol 25-OH Vitamin D Total PTH Intact Urine pH Urine WBC (Auto) Urine Creatinine Urine Total Protein Fluid Total Protein Vancomycin Trough Rheumatoid Factor Complement C4 Miscellaneous Test Crossmatch 12/25/16 12/26/16 12/26/16 23:54 05:40 05:50 WBC 16.2 H RBC 2.32 L Hgb 6.2 L Hct 20.1 L MCV MCH 27 L MCHC RDW 18.6 H Plt Count Lymph % (Auto) [place] % (Auto) Lymph # [place] # Baso # Seg Neutrophils % Seg Neuts % (Manual) Lymphocytes % (Manual) Monocytes % (Manual) Eosinophils % (Manual) Basophils % (Manual) Nucleated RBC % Seg Neutrophils # Seg Neutrophils # Man Lymphocytes # (Manual) Monocytes # (Manual) Eosinophils # (Manual) Basophils # (Manual) PT INR Fibrinogen dRVVT Confirm Interp Factor V Activity POC ABG pH POC ABG pCO2 POC ABG pO2 ABG pO2 ABG HCO3 ABG Base Excess ABG Hemoglobin Oxyhemoglobin Sodium Potassium Chloride Carbon Dioxide BUN Creatinine Glucose POC Glucose 126 H 132 H Lactic Acid Calcium Ionized Calcium Phosphorus Magnesium Direct Bilirubin AST ALT Alkaline Phosphatase Lactate Dehydrogenase Troponin T C-Reactive Protein Total Protein Albumin Prealbumin Triglycerides Cholesterol LDL Cholesterol Direct HDL Cholesterol 25-OH Vitamin D Total PTH Intact Urine pH Urine WBC (Auto) Urine Creatinine Urine Total Protein Fluid Total Protein Vancomycin Trough Rheumatoid Factor Complement C4 Miscellaneous Test Crossmatch 12/26/16 12/26/16 12/26/16 05:50 12:17 12:33 WBC RBC Hgb Hct MCV MCH MCHC RDW Plt Count Lymph % (Auto) [place] % (Auto) Lymph # [place] # Baso # Seg Neutrophils % Seg Neuts % (Manual) Lymphocytes % (Manual) Monocytes % (Manual) Eosinophils % (Manual) Basophils % (Manual) Nucleated RBC % Seg Neutrophils # Seg Neutrophils # Man Lymphocytes # (Manual) Monocytes # (Manual) Eosinophils # (Manual) Basophils # (Manual) PT INR Fibrinogen dRVVT Confirm Interp Factor V Activity POC ABG pH POC ABG pCO2 POC ABG pO2 ABG pO2 ABG HCO3 ABG Base Excess ABG Hemoglobin Oxyhemoglobin Sodium Potassium Chloride Carbon Dioxide BUN 73 H Creatinine 1.3 H Glucose 113 H POC Glucose 117 H Lactic Acid Calcium Ionized Calcium Phosphorus Magnesium Direct Bilirubin AST ALT Alkaline Phosphatase Lactate Dehydrogenase Troponin T C-Reactive Protein Total Protein Albumin Prealbumin Triglycerides Cholesterol LDL Cholesterol Direct HDL Cholesterol 25-OH Vitamin D Total PTH Intact Urine pH Urine WBC (Auto) Urine Creatinine Urine Total Protein Fluid Total Protein Vancomycin Trough Rheumatoid Factor Complement C4 Miscellaneous Test Crossmatch See Detail 12/26/16 12/26/16 12/27/16 20:00 23:21 05:00 WBC RBC Hgb 8.4 L Hct 26.3 L D MCV MCH MCHC RDW Plt Count Lymph % (Auto) [place] % (Auto) Lymph # [place] # Baso # Seg Neutrophils % Seg Neuts % (Manual) Lymphocytes % (Manual) Monocytes % (Manual) Eosinophils % (Manual) Basophils % (Manual) Nucleated RBC % Seg Neutrophils # Seg Neutrophils # Man Lymphocytes # (Manual) Monocytes # (Manual) Eosinophils # (Manual) Basophils # (Manual) PT INR Fibrinogen dRVVT Confirm Interp Factor V Activity POC ABG pH POC ABG pCO2 POC ABG pO2 ABG pO2 ABG HCO3 ABG Base Excess ABG Hemoglobin Oxyhemoglobin Sodium Potassium Chloride Carbon Dioxide BUN 85 H Creatinine 1.6 H Glucose 118 H POC Glucose 124 H Lactic Acid Calcium Ionized Calcium Phosphorus 4.80 H Magnesium Direct Bilirubin AST ALT Alkaline Phosphatase Lactate Dehydrogenase Troponin T C-Reactive Protein Total Protein Albumin Prealbumin Triglycerides Cholesterol LDL Cholesterol Direct HDL Cholesterol 25-OH Vitamin D Total PTH Intact Urine pH Urine WBC (Auto) Urine Creatinine Urine Total Protein Fluid Total Protein Vancomycin Trough Rheumatoid Factor Complement C4 Miscellaneous Test Crossmatch 12/27/16 12/27/16 12/27/16 05:00 05:35 12:24 WBC RBC Hgb 7.6 L Hct 22.8 L MCV MCH MCHC RDW Plt Count Lymph % (Auto) [place] % (Auto) Lymph # [place] # Baso # Seg Neutrophils % Seg Neuts % (Manual) Lymphocytes % (Manual) Monocytes % (Manual) Eosinophils % (Manual) Basophils % (Manual) Nucleated RBC % Seg Neutrophils # Seg Neutrophils # Man Lymphocytes # (Manual) Monocytes # (Manual) Eosinophils # (Manual) Basophils # (Manual) PT INR Fibrinogen dRVVT Confirm Interp Factor V Activity POC ABG pH POC ABG pCO2 POC ABG pO2 ABG pO2 ABG HCO3 ABG Base Excess ABG Hemoglobin Oxyhemoglobin Sodium Potassium Chloride Carbon Dioxide BUN Creatinine Glucose POC Glucose 115 H 131 H Lactic Acid Calcium Ionized Calcium Phosphorus Magnesium Direct Bilirubin AST ALT Alkaline Phosphatase Lactate Dehydrogenase Troponin T C-Reactive Protein Total Protein Albumin Prealbumin Triglycerides Cholesterol LDL Cholesterol Direct HDL Cholesterol 25-OH Vitamin D Total PTH Intact Urine pH Urine WBC (Auto) Urine Creatinine Urine Total Protein Fluid Total Protein Vancomycin Trough Rheumatoid Factor Complement C4 Miscellaneous Test Crossmatch 12/27/16 12/28/16 12/28/16 17:16 00:18 04:00 WBC RBC Hgb Hct MCV MCH MCHC RDW Plt Count Lymph % (Auto) [place] % (Auto) Lymph # [place] # Baso # Seg Neutrophils % Seg Neuts % (Manual) Lymphocytes % (Manual) Monocytes % (Manual) Eosinophils % (Manual) Basophils % (Manual) Nucleated RBC % Seg Neutrophils # Seg Neutrophils # Man Lymphocytes # (Manual) Monocytes # (Manual) Eosinophils # (Manual) Basophils # (Manual) PT INR Fibrinogen dRVVT Confirm Interp Factor V Activity POC ABG pH POC ABG pCO2 POC ABG pO2 ABG pO2 ABG HCO3 ABG Base Excess ABG Hemoglobin Oxyhemoglobin Sodium Potassium 3.5 L Chloride Carbon Dioxide BUN 57 H Creatinine Glucose 118 H POC Glucose 136 H 120 H Lactic Acid Calcium 8.3 L Ionized Calcium Phosphorus Magnesium Direct Bilirubin AST ALT Alkaline Phosphatase Lactate Dehydrogenase Troponin T C-Reactive Protein Total Protein Albumin Prealbumin Triglycerides Cholesterol LDL Cholesterol Direct HDL Cholesterol 25-OH Vitamin D Total PTH Intact Urine pH Urine WBC (Auto) Urine Creatinine Urine Total Protein Fluid Total Protein Vancomycin Trough Rheumatoid Factor Complement C4 Miscellaneous Test Crossmatch 12/28/16 12/28/16 12/28/16 04:00 05:11 08:30 WBC 17.0 H RBC 2.58 L Hgb 7.1 L Hct 22.0 L MCV MCH MCHC RDW 17.6 H Plt Count Lymph % (Auto) 12.2 L [place] % (Auto) Lymph # [place] # 1.1 H Baso # Seg Neutrophils % 80.5 H Seg Neuts % (Manual) Lymphocytes % (Manual) Monocytes % (Manual) Eosinophils % (Manual) Basophils % (Manual) Nucleated RBC % Seg Neutrophils # 13.7 H Seg Neutrophils # Man Lymphocytes # (Manual) Monocytes # (Manual) Eosinophils # (Manual) Basophils # (Manual) PT 16.1 H INR 1.23 H Fibrinogen dRVVT Confirm Interp Factor V Activity POC ABG pH POC ABG pCO2 POC ABG pO2 ABG pO2 ABG HCO3 ABG Base Excess ABG Hemoglobin Oxyhemoglobin Sodium Potassium Chloride Carbon Dioxide BUN Creatinine Glucose POC Glucose 122 H Lactic Acid Calcium Ionized Calcium Phosphorus Magnesium Direct Bilirubin AST ALT Alkaline Phosphatase Lactate Dehydrogenase Troponin T C-Reactive Protein Total Protein Albumin Prealbumin Triglycerides Cholesterol LDL Cholesterol Direct HDL Cholesterol 25-OH Vitamin D Total PTH Intact Urine pH Urine WBC (Auto) Urine Creatinine Urine Total Protein Fluid Total Protein Vancomycin Trough Rheumatoid Factor Complement C4 Miscellaneous Test Crossmatch 12/28/16 12/28/16 12/28/16 12:27 16:32 23:46 WBC RBC Hgb Hct MCV MCH MCHC RDW Plt Count Lymph % (Auto) [place] % (Auto) Lymph # [place] # Baso # Seg Neutrophils % Seg Neuts % (Manual) Lymphocytes % (Manual) Monocytes % (Manual) Eosinophils % (Manual) Basophils % (Manual) Nucleated RBC % Seg Neutrophils # Seg Neutrophils # Man Lymphocytes # (Manual) Monocytes # (Manual) Eosinophils # (Manual) Basophils # (Manual) PT INR Fibrinogen dRVVT Confirm Interp Factor V Activity POC ABG pH POC ABG pCO2 POC ABG pO2 ABG pO2 ABG HCO3 ABG Base Excess ABG Hemoglobin Oxyhemoglobin Sodium Potassium Chloride Carbon Dioxide BUN Creatinine Glucose POC Glucose 127 H 117 H 108 H Lactic Acid Calcium Ionized Calcium Phosphorus Magnesium Direct Bilirubin AST ALT Alkaline Phosphatase Lactate Dehydrogenase Troponin T C-Reactive Protein Total Protein Albumin Prealbumin Triglycerides Cholesterol LDL Cholesterol Direct HDL Cholesterol 25-OH Vitamin D Total PTH Intact Urine pH Urine WBC (Auto) Urine Creatinine Urine Total Protein Fluid Total Protein Vancomycin Trough Rheumatoid Factor Complement C4 Miscellaneous Test Crossmatch 12/29/16 12/29/16 12/29/16 05:15 05:15 05:32 WBC RBC Hgb Hct MCV MCH MCHC RDW Plt Count Lymph % (Auto) [place] % (Auto) Lymph # [place] # Baso # Seg Neutrophils % Seg Neuts % (Manual) Lymphocytes % (Manual) Monocytes % (Manual) Eosinophils % (Manual) Basophils % (Manual) Nucleated RBC % Seg Neutrophils # Seg Neutrophils # Man Lymphocytes # (Manual) Monocytes # (Manual) Eosinophils # (Manual) Basophils # (Manual) PT INR Fibrinogen dRVVT Confirm Interp Factor V Activity POC ABG pH POC ABG pCO2 POC ABG pO2 ABG pO2 ABG HCO3 ABG Base Excess ABG Hemoglobin Oxyhemoglobin Sodium Potassium Chloride Carbon Dioxide BUN 74 H Creatinine 1.6 H Glucose 111 H POC Glucose 123 H Lactic Acid Calcium Ionized Calcium Phosphorus Magnesium Direct Bilirubin AST ALT Alkaline Phosphatase Lactate Dehydrogenase Troponin T C-Reactive Protein Total Protein Albumin Prealbumin 0.110 L Triglycerides Cholesterol LDL Cholesterol Direct HDL Cholesterol 25-OH Vitamin D Total PTH Intact Urine pH Urine WBC (Auto) Urine Creatinine Urine Total Protein Fluid Total Protein Vancomycin Trough Rheumatoid Factor Complement C4 Miscellaneous Test Crossmatch 12/29/16 12/29/16 12/29/16 11:43 13:45 14:00 WBC 13.8 H RBC 2.26 L Hgb 6.3 L Hct 20.4 L MCV MCH MCHC RDW 18.3 H Plt Count Lymph % (Auto) [place] % (Auto) Lymph # [place] # 0.9 H Baso # Seg Neutrophils % 78.6 H Seg Neuts % (Manual) Lymphocytes % (Manual) Monocytes % (Manual) Eosinophils % (Manual) Basophils % (Manual) Nucleated RBC % Seg Neutrophils # 10.8 H Seg Neutrophils # Man Lymphocytes # (Manual) Monocytes # (Manual) Eosinophils # (Manual) Basophils # (Manual) PT INR Fibrinogen dRVVT Confirm Interp Factor V Activity POC ABG pH POC ABG pCO2 POC ABG pO2 ABG pO2 ABG HCO3 ABG Base Excess ABG Hemoglobin Oxyhemoglobin Sodium Potassium Chloride Carbon Dioxide BUN Creatinine Glucose POC Glucose 133 H Lactic Acid Calcium Ionized Calcium Phosphorus Magnesium Direct Bilirubin AST ALT Alkaline Phosphatase Lactate Dehydrogenase Troponin T C-Reactive Protein Total Protein Albumin Prealbumin Triglycerides Cholesterol LDL Cholesterol Direct HDL Cholesterol 25-OH Vitamin D Total PTH Intact Urine pH Urine WBC (Auto) Urine Creatinine Urine Total Protein Fluid Total Protein Vancomycin Trough Rheumatoid Factor Complement C4 Miscellaneous Test Crossmatch See Detail 12/29/16 12/29/16 12/29/16 17:03 23:15 23:22 WBC RBC Hgb 7.3 L Hct 22.3 L MCV MCH MCHC RDW Plt Count Lymph % (Auto) [place] % (Auto) Lymph # [place] # Baso # Seg Neutrophils % Seg Neuts % (Manual) Lymphocytes % (Manual) Monocytes % (Manual) Eosinophils % (Manual) Basophils % (Manual) Nucleated RBC % Seg Neutrophils # Seg Neutrophils # Man Lymphocytes # (Manual) Monocytes # (Manual) Eosinophils # (Manual) Basophils # (Manual) PT INR Fibrinogen dRVVT Confirm Interp Factor V Activity POC ABG pH POC ABG pCO2 POC ABG pO2 ABG pO2 ABG HCO3 ABG Base Excess ABG Hemoglobin Oxyhemoglobin Sodium Potassium Chloride Carbon Dioxide BUN Creatinine Glucose POC Glucose 139 H 120 H Lactic Acid Calcium Ionized Calcium Phosphorus Magnesium Direct Bilirubin AST ALT Alkaline Phosphatase Lactate Dehydrogenase Troponin T C-Reactive Protein Total Protein Albumin Prealbumin Triglycerides Cholesterol LDL Cholesterol Direct HDL Cholesterol 25-OH Vitamin D Total PTH Intact Urine pH Urine WBC (Auto) Urine Creatinine Urine Total Protein Fluid Total Protein Vancomycin Trough Rheumatoid Factor Complement C4 Miscellaneous Test Crossmatch 12/30/16 12/30/16 12/30/16 04:20 04:20 05:43 WBC 15.6 H RBC 2.81 L Hgb 8.0 L Hct 24.0 L MCV MCH MCHC RDW 16.9 H Plt Count Lymph % (Auto) [place] % (Auto) Lymph # [place] # 1.0 H Baso # Seg Neutrophils % 76.2 H Seg Neuts % (Manual) Lymphocytes % (Manual) Monocytes % (Manual) Eosinophils % (Manual) Basophils % (Manual) Nucleated RBC % Seg Neutrophils # 11.9 H Seg Neutrophils # Man Lymphocytes # (Manual) Monocytes # (Manual) Eosinophils # (Manual) Basophils # (Manual) PT INR Fibrinogen dRVVT Confirm Interp Factor V Activity POC ABG pH POC ABG pCO2 POC ABG pO2 ABG pO2 ABG HCO3 ABG Base Excess ABG Hemoglobin Oxyhemoglobin Sodium Potassium Chloride Carbon Dioxide BUN 87 H Creatinine 1.8 H Glucose 119 H POC Glucose 115 H Lactic Acid Calcium Ionized Calcium Phosphorus Magnesium Direct Bilirubin AST ALT Alkaline Phosphatase Lactate Dehydrogenase Troponin T C-Reactive Protein Total Protein Albumin Prealbumin Triglycerides Cholesterol LDL Cholesterol Direct HDL Cholesterol 25-OH Vitamin D Total PTH Intact Urine pH Urine WBC (Auto) Urine Creatinine Urine Total Protein Fluid Total Protein Vancomycin Trough Rheumatoid Factor Complement C4 Miscellaneous Test Crossmatch 12/30/16 12/30/16 12/31/16 17:27 23:21 04:00 WBC RBC Hgb Hct MCV MCH MCHC RDW Plt Count Lymph % (Auto) [place] % (Auto) Lymph # [place] # Baso # Seg Neutrophils % Seg Neuts % (Manual) Lymphocytes % (Manual) Monocytes % (Manual) Eosinophils % (Manual) Basophils % (Manual) Nucleated RBC % Seg Neutrophils # Seg Neutrophils # Man Lymphocytes # (Manual) Monocytes # (Manual) Eosinophils # (Manual) Basophils # (Manual) PT INR Fibrinogen dRVVT Confirm Interp Factor V Activity POC ABG pH POC ABG pCO2 POC ABG pO2 ABG pO2 ABG HCO3 ABG Base Excess ABG Hemoglobin Oxyhemoglobin Sodium Potassium Chloride Carbon Dioxide BUN 59 H Creatinine Glucose 298 H POC Glucose 144 H 125 H Lactic Acid Calcium Ionized Calcium Phosphorus Magnesium Direct Bilirubin AST ALT Alkaline Phosphatase Lactate Dehydrogenase Troponin T C-Reactive Protein Total Protein Albumin Prealbumin Triglycerides Cholesterol LDL Cholesterol Direct HDL Cholesterol 25-OH Vitamin D Total PTH Intact Urine pH Urine WBC (Auto) Urine Creatinine Urine Total Protein Fluid Total Protein Vancomycin Trough Rheumatoid Factor Complement C4 Miscellaneous Test Crossmatch 12/31/16 12/31/16 12/31/16 05:11 12:18 18:17 WBC RBC Hgb Hct MCV MCH MCHC RDW Plt Count Lymph % (Auto) [place] % (Auto) Lymph # [place] # Baso # Seg Neutrophils % Seg Neuts % (Manual) Lymphocytes % (Manual) Monocytes % (Manual) Eosinophils % (Manual) Basophils % (Manual) Nucleated RBC % Seg Neutrophils # Seg Neutrophils # Man Lymphocytes # (Manual) Monocytes # (Manual) Eosinophils # (Manual) Basophils # (Manual) PT INR Fibrinogen dRVVT Confirm Interp Factor V Activity POC ABG pH POC ABG pCO2 POC ABG pO2 ABG pO2 ABG HCO3 ABG Base Excess ABG Hemoglobin Oxyhemoglobin Sodium Potassium Chloride Carbon Dioxide BUN Creatinine Glucose POC Glucose 167 H 125 H 133 H Lactic Acid Calcium Ionized Calcium Phosphorus Magnesium Direct Bilirubin AST ALT Alkaline Phosphatase Lactate Dehydrogenase Troponin T C-Reactive Protein Total Protein Albumin Prealbumin Triglycerides Cholesterol LDL Cholesterol Direct HDL Cholesterol 25-OH Vitamin D Total PTH Intact Urine pH Urine WBC (Auto) Urine Creatinine Urine Total Protein Fluid Total Protein Vancomycin Trough Rheumatoid Factor Complement C4 Miscellaneous Test Crossmatch 12/31/16 01/01/17 01/01/17 23:55 05:00 05:12 WBC RBC Hgb Hct MCV MCH MCHC RDW Plt Count Lymph % (Auto) [place] % (Auto) Lymph # [place] # Baso # Seg Neutrophils % Seg Neuts % (Manual) Lymphocytes % (Manual) Monocytes % (Manual) Eosinophils % (Manual) Basophils % (Manual) Nucleated RBC % Seg Neutrophils # Seg Neutrophils # Man Lymphocytes # (Manual) Monocytes # (Manual) Eosinophils # (Manual) Basophils # (Manual) PT INR Fibrinogen dRVVT Confirm Interp Factor V Activity POC ABG pH POC ABG pCO2 POC ABG pO2 ABG pO2 ABG HCO3 ABG Base Excess ABG Hemoglobin Oxyhemoglobin Sodium Potassium Chloride Carbon Dioxide BUN 76 H Creatinine 1.5 H Glucose 109 H POC Glucose 129 H 129 H Lactic Acid Calcium Ionized Calcium Phosphorus Magnesium Direct Bilirubin AST ALT Alkaline Phosphatase 536 H Lactate Dehydrogenase Troponin T C-Reactive Protein Total Protein Albumin 1.5 L Prealbumin Triglycerides Cholesterol LDL Cholesterol Direct HDL Cholesterol 25-OH Vitamin D Total PTH Intact Urine pH Urine WBC (Auto) Urine Creatinine Urine Total Protein Fluid Total Protein Vancomycin Trough Rheumatoid Factor Complement C4 Miscellaneous Test Crossmatch 01/01/17 01/01/17 01/01/17 12:25 17:01 23:32 WBC RBC Hgb Hct MCV MCH MCHC RDW Plt Count Lymph % (Auto) [place] % (Auto) Lymph # [place] # Baso # Seg Neutrophils % Seg Neuts % (Manual) Lymphocytes % (Manual) Monocytes % (Manual) Eosinophils % (Manual) Basophils % (Manual) Nucleated RBC % Seg Neutrophils # Seg Neutrophils # Man Lymphocytes # (Manual) Monocytes # (Manual) Eosinophils # (Manual) Basophils # (Manual) PT INR Fibrinogen dRVVT Confirm Interp Factor V Activity POC ABG pH POC ABG pCO2 POC ABG pO2 ABG pO2 ABG HCO3 ABG Base Excess ABG Hemoglobin Oxyhemoglobin Sodium Potassium Chloride Carbon Dioxide BUN Creatinine Glucose POC Glucose 140 H 142 H 112 H Lactic Acid Calcium Ionized Calcium Phosphorus Magnesium Direct Bilirubin AST ALT Alkaline Phosphatase Lactate Dehydrogenase Troponin T C-Reactive Protein Total Protein Albumin Prealbumin Triglycerides Cholesterol LDL Cholesterol Direct HDL Cholesterol 25-OH Vitamin D Total PTH Intact Urine pH Urine WBC (Auto) Urine Creatinine Urine Total Protein Fluid Total Protein Vancomycin Trough Rheumatoid Factor Complement C4 Miscellaneous Test Crossmatch 01/02/17 01/02/17 01/02/17 04:56 06:00 11:37 WBC RBC Hgb Hct MCV MCH MCHC RDW Plt Count Lymph % (Auto) [place] % (Auto) Lymph # [place] # Baso # Seg Neutrophils % Seg Neuts % (Manual) Lymphocytes % (Manual) Monocytes % (Manual) Eosinophils % (Manual) Basophils % (Manual) Nucleated RBC % Seg Neutrophils # Seg Neutrophils # Man Lymphocytes # (Manual) Monocytes # (Manual) Eosinophils # (Manual) Basophils # (Manual) PT INR Fibrinogen dRVVT Confirm Interp Factor V Activity POC ABG pH POC ABG pCO2 POC ABG pO2 ABG pO2 ABG HCO3 ABG Base Excess ABG Hemoglobin Oxyhemoglobin Sodium Potassium Chloride Carbon Dioxide BUN 88 H Creatinine 1.7 H Glucose 113 H POC Glucose 136 H 200 H Lactic Acid Calcium Ionized Calcium Phosphorus Magnesium Direct Bilirubin AST ALT Alkaline Phosphatase Lactate Dehydrogenase Troponin T C-Reactive Protein Total Protein Albumin Prealbumin Triglycerides Cholesterol LDL Cholesterol Direct HDL Cholesterol 25-OH Vitamin D Total PTH Intact Urine pH Urine WBC (Auto) Urine Creatinine Urine Total Protein Fluid Total Protein Vancomycin Trough Rheumatoid Factor Complement C4 Miscellaneous Test Crossmatch 01/02/17 01/02/17 01/03/17 17:42 22:52 04:54 WBC RBC Hgb Hct MCV MCH MCHC RDW Plt Count Lymph % (Auto) [place] % (Auto) Lymph # [place] # Baso # Seg Neutrophils % Seg Neuts % (Manual) Lymphocytes % (Manual) Monocytes % (Manual) Eosinophils % (Manual) Basophils % (Manual) Nucleated RBC % Seg Neutrophils # Seg Neutrophils # Man Lymphocytes # (Manual) Monocytes # (Manual) Eosinophils # (Manual) Basophils # (Manual) PT INR Fibrinogen dRVVT Confirm Interp Factor V Activity POC ABG pH POC ABG pCO2 POC ABG pO2 ABG pO2 ABG HCO3 ABG Base Excess ABG Hemoglobin Oxyhemoglobin Sodium Potassium Chloride Carbon Dioxide BUN Creatinine Glucose POC Glucose 112 H 133 H 111 H Lactic Acid Calcium Ionized Calcium Phosphorus Magnesium Direct Bilirubin AST ALT Alkaline Phosphatase Lactate Dehydrogenase Troponin T C-Reactive Protein Total Protein Albumin Prealbumin Triglycerides Cholesterol LDL Cholesterol Direct HDL Cholesterol 25-OH Vitamin D Total PTH Intact Urine pH Urine WBC (Auto) Urine Creatinine Urine Total Protein Fluid Total Protein Vancomycin Trough Rheumatoid Factor Complement C4 Miscellaneous Test Crossmatch 01/03/17 01/03/17 01/03/17 05:00 05:00 14:02 WBC 11.2 H RBC 2.56 L Hgb 7.2 L Hct 22.3 L MCV MCH MCHC RDW 17.3 H Plt Count Lymph % (Auto) [place] % (Auto) 10.0 H Lymph # [place] # 1.1 H Baso # Seg Neutrophils % 70.5 H Seg Neuts % (Manual) Lymphocytes % (Manual) Monocytes % (Manual) Eosinophils % (Manual) Basophils % (Manual) Nucleated RBC % Seg Neutrophils # 7.9 H Seg Neutrophils # Man Lymphocytes # (Manual) Monocytes # (Manual) Eosinophils # (Manual) Basophils # (Manual) PT INR Fibrinogen dRVVT Confirm Interp Factor V Activity POC ABG pH POC ABG pCO2 POC ABG pO2 ABG pO2 ABG HCO3 ABG Base Excess ABG Hemoglobin Oxyhemoglobin Sodium Potassium Chloride Carbon Dioxide BUN 60 H Creatinine 1.3 H Glucose 110 H POC Glucose 119 H Lactic Acid Calcium Ionized Calcium Phosphorus Magnesium Direct Bilirubin AST ALT Alkaline Phosphatase Lactate Dehydrogenase Troponin T C-Reactive Protein Total Protein Albumin Prealbumin Triglycerides Cholesterol LDL Cholesterol Direct HDL Cholesterol 25-OH Vitamin D Total PTH Intact Urine pH Urine WBC (Auto) Urine Creatinine Urine Total Protein Fluid Total Protein Vancomycin Trough Rheumatoid Factor Complement C4 Miscellaneous Test Crossmatch 01/03/17 01/03/17 01/04/17 18:13 23:40 05:57 WBC RBC Hgb Hct MCV MCH MCHC RDW Plt Count Lymph % (Auto) [place] % (Auto) Lymph # [place] # Baso # Seg Neutrophils % Seg Neuts % (Manual) Lymphocytes % (Manual) Monocytes % (Manual) Eosinophils % (Manual) Basophils % (Manual) Nucleated RBC % Seg Neutrophils # Seg Neutrophils # Man Lymphocytes # (Manual) Monocytes # (Manual) Eosinophils # (Manual) Basophils # (Manual) PT INR Fibrinogen dRVVT Confirm Interp Factor V Activity POC ABG pH POC ABG pCO2 POC ABG pO2 ABG pO2 ABG HCO3 ABG Base Excess ABG Hemoglobin Oxyhemoglobin Sodium Potassium Chloride Carbon Dioxide BUN Creatinine Glucose POC Glucose 107 H 129 H 111 H Lactic Acid Calcium Ionized Calcium Phosphorus Magnesium Direct Bilirubin AST ALT Alkaline Phosphatase Lactate Dehydrogenase Troponin T C-Reactive Protein Total Protein Albumin Prealbumin Triglycerides Cholesterol LDL Cholesterol Direct HDL Cholesterol 25-OH Vitamin D Total PTH Intact Urine pH Urine WBC (Auto) Urine Creatinine Urine Total Protein Fluid Total Protein Vancomycin Trough Rheumatoid Factor Complement C4 Miscellaneous Test Crossmatch 01/04/17 01/04/17 01/04/17 12:46 15:27 17:11 WBC RBC Hgb Hct MCV MCH MCHC RDW Plt Count Lymph % (Auto) [place] % (Auto) Lymph # [place] # Baso # Seg Neutrophils % Seg Neuts % (Manual) Lymphocytes % (Manual) Monocytes % (Manual) Eosinophils % (Manual) Basophils % (Manual) Nucleated RBC % Seg Neutrophils # Seg Neutrophils # Man Lymphocytes # (Manual) Monocytes # (Manual) Eosinophils # (Manual) Basophils # (Manual) PT INR Fibrinogen dRVVT Confirm Interp Factor V Activity POC ABG pH POC ABG pCO2 POC ABG pO2 ABG pO2 ABG HCO3 ABG Base Excess ABG Hemoglobin Oxyhemoglobin Sodium Potassium Chloride Carbon Dioxide BUN 43 H Creatinine Glucose 124 H POC Glucose 159 H 125 H Lactic Acid Calcium 8.0 L Ionized Calcium Phosphorus 2.10 L Magnesium Direct Bilirubin AST ALT Alkaline Phosphatase Lactate Dehydrogenase Troponin T C-Reactive Protein Total Protein Albumin Prealbumin Triglycerides Cholesterol LDL Cholesterol Direct HDL Cholesterol 25-OH Vitamin D Total PTH Intact Urine pH Urine WBC (Auto) Urine Creatinine Urine Total Protein Fluid Total Protein Vancomycin Trough Rheumatoid Factor Complement C4 Miscellaneous Test Crossmatch 01/04/17 01/05/17 01/05/17 23:31 04:00 05:46 WBC RBC Hgb Hct MCV MCH MCHC RDW Plt Count Lymph % (Auto) [place] % (Auto) Lymph # [place] # Baso # Seg Neutrophils % Seg Neuts % (Manual) Lymphocytes % (Manual) Monocytes % (Manual) Eosinophils % (Manual) Basophils % (Manual) Nucleated RBC % Seg Neutrophils # Seg Neutrophils # Man Lymphocytes # (Manual) Monocytes # (Manual) Eosinophils # (Manual) Basophils # (Manual) PT INR Fibrinogen dRVVT Confirm Interp Factor V Activity POC ABG pH POC ABG pCO2 POC ABG pO2 ABG pO2 ABG HCO3 ABG Base Excess ABG Hemoglobin Oxyhemoglobin Sodium Potassium Chloride Carbon Dioxide BUN 52 H Creatinine 1.3 H Glucose 113 H POC Glucose 123 H 118 H Lactic Acid Calcium Ionized Calcium Phosphorus 2.40 L Magnesium Direct Bilirubin AST ALT Alkaline Phosphatase Lactate Dehydrogenase Troponin T C-Reactive Protein Total Protein Albumin Prealbumin Triglycerides Cholesterol LDL Cholesterol Direct HDL Cholesterol 25-OH Vitamin D Total PTH Intact Urine pH Urine WBC (Auto) Urine Creatinine Urine Total Protein Fluid Total Protein Vancomycin Trough Rheumatoid Factor Complement C4 Miscellaneous Test Crossmatch 01/05/17 01/05/17 01/05/17 11:41 17:48 23:27 WBC RBC Hgb Hct MCV MCH MCHC RDW Plt Count Lymph % (Auto) [place] % (Auto) Lymph # [place] # Baso # Seg Neutrophils % Seg Neuts % (Manual) Lymphocytes % (Manual) Monocytes % (Manual) Eosinophils % (Manual) Basophils % (Manual) Nucleated RBC % Seg Neutrophils # Seg Neutrophils # Man Lymphocytes # (Manual) Monocytes # (Manual) Eosinophils # (Manual) Basophils # (Manual) PT INR Fibrinogen dRVVT Confirm Interp Factor V Activity POC ABG pH POC ABG pCO2 POC ABG pO2 ABG pO2 ABG HCO3 ABG Base Excess ABG Hemoglobin Oxyhemoglobin Sodium Potassium Chloride Carbon Dioxide BUN Creatinine Glucose POC Glucose 163 H 142 H 155 H Lactic Acid Calcium Ionized Calcium Phosphorus Magnesium Direct Bilirubin AST ALT Alkaline Phosphatase Lactate Dehydrogenase Troponin T C-Reactive Protein Total Protein Albumin Prealbumin Triglycerides Cholesterol LDL Cholesterol Direct HDL Cholesterol 25-OH Vitamin D Total PTH Intact Urine pH Urine WBC (Auto) Urine Creatinine Urine Total Protein Fluid Total Protein Vancomycin Trough Rheumatoid Factor Complement C4 Miscellaneous Test Crossmatch 01/06/17 01/06/17 01/06/17 05:20 07:35 11:18 WBC RBC Hgb Hct MCV MCH MCHC RDW Plt Count Lymph % (Auto) [place] % (Auto) Lymph # [place] # Baso # Seg Neutrophils % Seg Neuts % (Manual) Lymphocytes % (Manual) Monocytes % (Manual) Eosinophils % (Manual) Basophils % (Manual) Nucleated RBC % Seg Neutrophils # Seg Neutrophils # Man Lymphocytes # (Manual) Monocytes # (Manual) Eosinophils # (Manual) Basophils # (Manual) PT INR Fibrinogen dRVVT Confirm Interp Factor V Activity POC ABG pH POC ABG pCO2 POC ABG pO2 ABG pO2 ABG HCO3 ABG Base Excess ABG Hemoglobin Oxyhemoglobin Sodium Potassium Chloride Carbon Dioxide BUN 74 H Creatinine 1.6 H Glucose 135 H POC Glucose 108 H 149 H Lactic Acid Calcium Ionized Calcium Phosphorus Magnesium Direct Bilirubin AST ALT Alkaline Phosphatase Lactate Dehydrogenase Troponin T C-Reactive Protein Total Protein Albumin Prealbumin Triglycerides Cholesterol LDL Cholesterol Direct HDL Cholesterol 25-OH Vitamin D Total PTH Intact Urine pH Urine WBC (Auto) Urine Creatinine Urine Total Protein Fluid Total Protein Vancomycin Trough Rheumatoid Factor Complement C4 Miscellaneous Test Crossmatch 01/06/17 01/07/17 01/07/17 17:17 00:23 05:31 WBC RBC Hgb Hct MCV MCH MCHC RDW Plt Count Lymph % (Auto) [place] % (Auto) Lymph # [place] # Baso # Seg Neutrophils % Seg Neuts % (Manual) Lymphocytes % (Manual) Monocytes % (Manual) Eosinophils % (Manual) Basophils % (Manual) Nucleated RBC % Seg Neutrophils # Seg Neutrophils # Man Lymphocytes # (Manual) Monocytes # (Manual) Eosinophils # (Manual) Basophils # (Manual) PT INR Fibrinogen dRVVT Confirm Interp Factor V Activity POC ABG pH POC ABG pCO2 POC ABG pO2 ABG pO2 ABG HCO3 ABG Base Excess ABG Hemoglobin Oxyhemoglobin Sodium Potassium Chloride Carbon Dioxide BUN Creatinine Glucose POC Glucose 146 H 165 H 153 H Lactic Acid Calcium Ionized Calcium Phosphorus Magnesium Direct Bilirubin AST ALT Alkaline Phosphatase Lactate Dehydrogenase Troponin T C-Reactive Protein Total Protein Albumin Prealbumin Triglycerides Cholesterol LDL Cholesterol Direct HDL Cholesterol 25-OH Vitamin D Total PTH Intact Urine pH Urine WBC (Auto) Urine Creatinine Urine Total Protein Fluid Total Protein Vancomycin Trough Rheumatoid Factor Complement C4 Miscellaneous Test Crossmatch 01/07/17 01/07/17 01/07/17 06:00 11:39 17:11 WBC RBC Hgb Hct MCV MCH MCHC RDW Plt Count Lymph % (Auto) [place] % (Auto) Lymph # [place] # Baso # Seg Neutrophils % Seg Neuts % (Manual) Lymphocytes % (Manual) Monocytes % (Manual) Eosinophils % (Manual) Basophils % (Manual) Nucleated RBC % Seg Neutrophils # Seg Neutrophils # Man Lymphocytes # (Manual) Monocytes # (Manual) Eosinophils # (Manual) Basophils # (Manual) PT INR Fibrinogen dRVVT Confirm Interp Factor V Activity POC ABG pH POC ABG pCO2 POC ABG pO2 ABG pO2 ABG HCO3 ABG Base Excess ABG Hemoglobin Oxyhemoglobin Sodium Potassium Chloride Carbon Dioxide BUN 42 H Creatinine Glucose 175 H POC Glucose 163 H 163 H Lactic Acid Calcium Ionized Calcium Phosphorus 2.40 L D Magnesium Direct Bilirubin AST ALT Alkaline Phosphatase Lactate Dehydrogenase Troponin T C-Reactive Protein Total Protein Albumin Prealbumin Triglycerides Cholesterol LDL Cholesterol Direct HDL Cholesterol 25-OH Vitamin D Total PTH Intact Urine pH Urine WBC (Auto) Urine Creatinine Urine Total Protein Fluid Total Protein Vancomycin Trough Rheumatoid Factor Complement C4 Miscellaneous Test Crossmatch 01/07/17 01/08/17 01/08/17 23:40 05:00 05:00 WBC 27.4 H RBC 2.27 L Hgb 6.1 L Hct 20.4 L MCV MCH 27 L MCHC RDW 17.8 H Plt Count Lymph % (Auto) [place] % (Auto) Lymph # [place] # Baso # Seg Neutrophils % Seg Neuts % (Manual) Lymphocytes % (Manual) Monocytes % (Manual) Eosinophils % (Manual) Basophils % (Manual) Nucleated RBC % Seg Neutrophils # Seg Neutrophils # Man Lymphocytes # (Manual) Monocytes # (Manual) Eosinophils # (Manual) Basophils # (Manual) PT INR Fibrinogen dRVVT Confirm Interp Factor V Activity POC ABG pH POC ABG pCO2 POC ABG pO2 ABG pO2 ABG HCO3 ABG Base Excess ABG Hemoglobin Oxyhemoglobin Sodium Potassium Chloride Carbon Dioxide 16 L D BUN 62 H Creatinine 1.6 H D Glucose 103 H POC Glucose 135 H Lactic Acid Calcium Ionized Calcium Phosphorus Magnesium Direct Bilirubin AST ALT Alkaline Phosphatase Lactate Dehydrogenase Troponin T C-Reactive Protein Total Protein Albumin Prealbumin Triglycerides Cholesterol LDL Cholesterol Direct HDL Cholesterol 25-OH Vitamin D Total PTH Intact Urine pH Urine WBC (Auto) Urine Creatinine Urine Total Protein Fluid Total Protein Vancomycin Trough Rheumatoid Factor Complement C4 Miscellaneous Test Crossmatch 01/08/17 01/08/17 01/08/17 05:25 10:37 10:37 WBC RBC Hgb Hct MCV MCH MCHC RDW Plt Count Lymph % (Auto) [place] % (Auto) Lymph # [place] # Baso # Seg Neutrophils % Seg Neuts % (Manual) Lymphocytes % (Manual) Monocytes % (Manual) Eosinophils % (Manual) Basophils % (Manual) Nucleated RBC % Seg Neutrophils # Seg Neutrophils # Man Lymphocytes # (Manual) Monocytes # (Manual) Eosinophils # (Manual) Basophils # (Manual) PT INR Fibrinogen dRVVT Confirm Interp Factor V Activity POC ABG pH POC ABG pCO2 POC ABG pO2 ABG pO2 ABG HCO3 ABG Base Excess ABG Hemoglobin Oxyhemoglobin Sodium Potassium Chloride Carbon Dioxide BUN Creatinine Glucose POC Glucose 106 H Lactic Acid Calcium Ionized Calcium Phosphorus Magnesium Direct Bilirubin AST ALT Alkaline Phosphatase Lactate Dehydrogenase Troponin T C-Reactive Protein 24.40 H Total Protein Albumin Prealbumin Triglycerides Cholesterol LDL Cholesterol Direct HDL Cholesterol 25-OH Vitamin D Total PTH Intact Urine pH Urine WBC (Auto) Urine Creatinine Urine Total Protein Fluid Total Protein Vancomycin Trough Rheumatoid Factor Complement C4 Miscellaneous Test Crossmatch See Detail 01/08/17 01/08/17 01/08/17 10:37 11:33 15:15 WBC RBC Hgb Hct MCV MCH MCHC RDW Plt Count Lymph % (Auto) [place] % (Auto) Lymph # [place] # Baso # Seg Neutrophils % Seg Neuts % (Manual) Lymphocytes % (Manual) Monocytes % (Manual) Eosinophils % (Manual) Basophils % (Manual) Nucleated RBC % Seg Neutrophils # Seg Neutrophils # Man Lymphocytes # (Manual) Monocytes # (Manual) Eosinophils # (Manual) Basophils # (Manual) PT INR Fibrinogen dRVVT Confirm Interp Factor V Activity POC ABG pH POC ABG pCO2 POC ABG pO2 ABG pO2 ABG HCO3 ABG Base Excess ABG Hemoglobin Oxyhemoglobin Sodium Potassium Chloride Carbon Dioxide BUN Creatinine Glucose POC Glucose 157 H Lactic Acid 9.70 H* 9.10 H* Calcium Ionized Calcium Phosphorus Magnesium Direct Bilirubin AST ALT Alkaline Phosphatase Lactate Dehydrogenase Troponin T C-Reactive Protein Total Protein Albumin Prealbumin Triglycerides Cholesterol LDL Cholesterol Direct HDL Cholesterol 25-OH Vitamin D Total PTH Intact Urine pH Urine WBC (Auto) Urine Creatinine Urine Total Protein Fluid Total Protein Vancomycin Trough Rheumatoid Factor Complement C4 Miscellaneous Test Crossmatch 01/08/17 01/08/17 01/09/17 17:19 23:12 04:40 WBC RBC Hgb Hct MCV MCH MCHC RDW Plt Count Lymph % (Auto) [place] % (Auto) Lymph # [place] # Baso # Seg Neutrophils % Seg Neuts % (Manual) Lymphocytes % (Manual) Monocytes % (Manual) Eosinophils % (Manual) Basophils % (Manual) Nucleated RBC % Seg Neutrophils # Seg Neutrophils # Man Lymphocytes # (Manual) Monocytes # (Manual) Eosinophils # (Manual) Basophils # (Manual) PT INR Fibrinogen dRVVT Confirm Interp Factor V Activity POC ABG pH POC ABG pCO2 POC ABG pO2 ABG pO2 ABG HCO3 ABG Base Excess ABG Hemoglobin Oxyhemoglobin Sodium 147 H Potassium Chloride Carbon Dioxide BUN 82 H Creatinine 1.8 H Glucose 137 H POC Glucose 164 H 157 H Lactic Acid Calcium Ionized Calcium Phosphorus Magnesium Direct Bilirubin AST ALT Alkaline Phosphatase Lactate Dehydrogenase Troponin T C-Reactive Protein Total Protein Albumin Prealbumin Triglycerides Cholesterol LDL Cholesterol Direct HDL Cholesterol 25-OH Vitamin D Total PTH Intact Urine pH Urine WBC (Auto) Urine Creatinine Urine Total Protein Fluid Total Protein Vancomycin Trough Rheumatoid Factor Complement C4 Miscellaneous Test Crossmatch 01/09/17 01/09/17 01/09/17 05:42 08:22 10:57 WBC RBC Hgb Hct MCV MCH MCHC RDW Plt Count Lymph % (Auto) [place] % (Auto) Lymph # [place] # Baso # Seg Neutrophils % Seg Neuts % (Manual) Lymphocytes % (Manual) Monocytes % (Manual) Eosinophils % (Manual) Basophils % (Manual) Nucleated RBC % Seg Neutrophils # Seg Neutrophils # Man Lymphocytes # (Manual) Monocytes # (Manual) Eosinophils # (Manual) Basophils # (Manual) PT INR Fibrinogen dRVVT Confirm Interp Factor V Activity POC ABG pH POC ABG pCO2 POC ABG pO2 ABG pO2 ABG HCO3 ABG Base Excess ABG Hemoglobin Oxyhemoglobin Sodium Potassium Chloride Carbon Dioxide BUN Creatinine Glucose POC Glucose 156 H 122 H Lactic Acid 2.30 H* Calcium Ionized Calcium Phosphorus Magnesium Direct Bilirubin AST ALT Alkaline Phosphatase Lactate Dehydrogenase Troponin T C-Reactive Protein Total Protein Albumin Prealbumin Triglycerides Cholesterol LDL Cholesterol Direct HDL Cholesterol 25-OH Vitamin D Total PTH Intact Urine pH Urine WBC (Auto) Urine Creatinine Urine Total Protein Fluid Total Protein Vancomycin Trough Rheumatoid Factor Complement C4 Miscellaneous Test Crossmatch 01/09/17 01/09/17 01/09/17 13:30 17:14 18:45 WBC RBC Hgb Hct MCV MCH MCHC RDW Plt Count Lymph % (Auto) [place] % (Auto) Lymph # [place] # Baso # Seg Neutrophils % Seg Neuts % (Manual) Lymphocytes % (Manual) Monocytes % (Manual) Eosinophils % (Manual) Basophils % (Manual) Nucleated RBC % Seg Neutrophils # Seg Neutrophils # Man Lymphocytes # (Manual) Monocytes # (Manual) Eosinophils # (Manual) Basophils # (Manual) PT INR Fibrinogen dRVVT Confirm Interp Factor V Activity POC ABG pH POC ABG pCO2 POC ABG pO2 ABG pO2 ABG HCO3 ABG Base Excess ABG Hemoglobin Oxyhemoglobin Sodium Potassium Chloride Carbon Dioxide BUN Creatinine Glucose POC Glucose 127 H Lactic Acid Calcium Ionized Calcium Phosphorus Magnesium Direct Bilirubin AST ALT Alkaline Phosphatase Lactate Dehydrogenase Troponin T C-Reactive Protein 24.70 H Total Protein Albumin Prealbumin Triglycerides Cholesterol LDL Cholesterol Direct HDL Cholesterol 25-OH Vitamin D Total PTH Intact Urine pH Urine WBC (Auto) Urine Creatinine Urine Total Protein Fluid Total Protein Vancomycin Trough Rheumatoid Factor Complement C4 Miscellaneous Test Flexitest 1 H Crossmatch 01/10/17 01/10/17 01/10/17 01:21 04:00 04:00 WBC 18.1 H RBC 3.22 L Hgb 8.8 L Hct 27.0 L D MCV MCH 27 L MCHC RDW 17.0 H Plt Count Lymph % (Auto) [place] % (Auto) Lymph # [place] # Baso # Seg Neutrophils % Seg Neuts % (Manual) Lymphocytes % (Manual) Monocytes % (Manual) Eosinophils % (Manual) Basophils % (Manual) Nucleated RBC % Seg Neutrophils # Seg Neutrophils # Man Lymphocytes # (Manual) Monocytes # (Manual) Eosinophils # (Manual) Basophils # (Manual) PT INR Fibrinogen dRVVT Confirm Interp Factor V Activity POC ABG pH POC ABG pCO2 POC ABG pO2 ABG pO2 ABG HCO3 ABG Base Excess ABG Hemoglobin Oxyhemoglobin Sodium Potassium Chloride Carbon Dioxide BUN 59 H Creatinine 1.3 H Glucose 122 H POC Glucose 160 H Lactic Acid Calcium Ionized Calcium Phosphorus Magnesium Direct Bilirubin AST ALT Alkaline Phosphatase Lactate Dehydrogenase Troponin T C-Reactive Protein Total Protein Albumin Prealbumin Triglycerides Cholesterol LDL Cholesterol Direct HDL Cholesterol 25-OH Vitamin D Total PTH Intact Urine pH Urine WBC (Auto) Urine Creatinine Urine Total Protein Fluid Total Protein Vancomycin Trough Rheumatoid Factor Complement C4 Miscellaneous Test Crossmatch 01/10/17 01/10/17 01/10/17 05:36 12:14 17:55 WBC RBC Hgb Hct MCV MCH MCHC RDW Plt Count Lymph % (Auto) [place] % (Auto) Lymph # [place] # Baso # Seg Neutrophils % Seg Neuts % (Manual) Lymphocytes % (Manual) Monocytes % (Manual) Eosinophils % (Manual) Basophils % (Manual) Nucleated RBC % Seg Neutrophils # Seg Neutrophils # Man Lymphocytes # (Manual) Monocytes # (Manual) Eosinophils # (Manual) Basophils # (Manual) PT INR Fibrinogen dRVVT Confirm Interp Factor V Activity POC ABG pH POC ABG pCO2 POC ABG pO2 ABG pO2 ABG HCO3 ABG Base Excess ABG Hemoglobin Oxyhemoglobin Sodium Potassium Chloride Carbon Dioxide BUN Creatinine Glucose POC Glucose 163 H 120 H 144 H Lactic Acid Calcium Ionized Calcium Phosphorus Magnesium Direct Bilirubin AST ALT Alkaline Phosphatase Lactate Dehydrogenase Troponin T C-Reactive Protein Total Protein Albumin Prealbumin Triglycerides Cholesterol LDL Cholesterol Direct HDL Cholesterol 25-OH Vitamin D Total PTH Intact Urine pH Urine WBC (Auto) Urine Creatinine Urine Total Protein Fluid Total Protein Vancomycin Trough Rheumatoid Factor Complement C4 Miscellaneous Test Crossmatch 01/11/17 01/11/17 01/11/17 00:09 04:00 04:00 WBC 15.8 H RBC 3.04 L Hgb 8.2 L Hct 25.5 L MCV MCH 27 L MCHC RDW 17.3 H Plt Count Lymph % (Auto) [place] % (Auto) Lymph # [place] # Baso # Seg Neutrophils % Seg Neuts % (Manual) Lymphocytes % (Manual) Monocytes % (Manual) Eosinophils % (Manual) Basophils % (Manual) Nucleated RBC % Seg Neutrophils # Seg Neutrophils # Man Lymphocytes # (Manual) Monocytes # (Manual) Eosinophils # (Manual) Basophils # (Manual) PT INR Fibrinogen dRVVT Confirm Interp Factor V Activity POC ABG pH POC ABG pCO2 POC ABG pO2 ABG pO2 ABG HCO3 ABG Base Excess ABG Hemoglobin Oxyhemoglobin Sodium Potassium Chloride Carbon Dioxide BUN 78 H Creatinine 1.6 H Glucose 109 H POC Glucose 122 H Lactic Acid Calcium Ionized Calcium Phosphorus Magnesium Direct Bilirubin AST ALT Alkaline Phosphatase Lactate Dehydrogenase Troponin T C-Reactive Protein Total Protein Albumin Prealbumin Triglycerides Cholesterol LDL Cholesterol Direct HDL Cholesterol 25-OH Vitamin D Total PTH Intact Urine pH Urine WBC (Auto) Urine Creatinine Urine Total Protein Fluid Total Protein Vancomycin Trough Rheumatoid Factor Complement C4 Miscellaneous Test Crossmatch 01/11/17 01/11/17 01/11/17 12:46 18:23 23:42 WBC RBC Hgb Hct MCV MCH MCHC RDW Plt Count Lymph % (Auto) [place] % (Auto) Lymph # [place] # Baso # Seg Neutrophils % Seg Neuts % (Manual) Lymphocytes % (Manual) Monocytes % (Manual) Eosinophils % (Manual) Basophils % (Manual) Nucleated RBC % Seg Neutrophils # Seg Neutrophils # Man Lymphocytes # (Manual) Monocytes # (Manual) Eosinophils # (Manual) Basophils # (Manual) PT INR Fibrinogen dRVVT Confirm Interp Factor V Activity POC ABG pH POC ABG pCO2 POC ABG pO2 ABG pO2 ABG HCO3 ABG Base Excess ABG Hemoglobin Oxyhemoglobin Sodium Potassium Chloride Carbon Dioxide BUN Creatinine Glucose POC Glucose 148 H 125 H 124 H Lactic Acid Calcium Ionized Calcium Phosphorus Magnesium Direct Bilirubin AST ALT Alkaline Phosphatase Lactate Dehydrogenase Troponin T C-Reactive Protein Total Protein Albumin Prealbumin Triglycerides Cholesterol LDL Cholesterol Direct HDL Cholesterol 25-OH Vitamin D Total PTH Intact Urine pH Urine WBC (Auto) Urine Creatinine Urine Total Protein Fluid Total Protein Vancomycin Trough Rheumatoid Factor Complement C4 Miscellaneous Test Crossmatch 01/12/17 01/12/17 01/12/17 04:30 04:30 05:47 WBC 15.8 H RBC 3.31 L Hgb 8.9 L Hct 27.9 L MCV MCH 27 L MCHC RDW 17.4 H Plt Count Lymph % (Auto) [place] % (Auto) Lymph # [place] # Baso # Seg Neutrophils % Seg Neuts % (Manual) Lymphocytes % (Manual) Monocytes % (Manual) Eosinophils % (Manual) Basophils % (Manual) Nucleated RBC % Seg Neutrophils # Seg Neutrophils # Man Lymphocytes # (Manual) Monocytes # (Manual) Eosinophils # (Manual) Basophils # (Manual) PT INR Fibrinogen dRVVT Confirm Interp Factor V Activity POC ABG pH POC ABG pCO2 POC ABG pO2 ABG pO2 ABG HCO3 ABG Base Excess ABG Hemoglobin Oxyhemoglobin Sodium Potassium Chloride Carbon Dioxide BUN 57 H Creatinine Glucose 121 H POC Glucose 110 H Lactic Acid Calcium Ionized Calcium Phosphorus 2.10 L Magnesium Direct Bilirubin AST ALT Alkaline Phosphatase Lactate Dehydrogenase Troponin T C-Reactive Protein Total Protein Albumin Prealbumin Triglycerides Cholesterol LDL Cholesterol Direct HDL Cholesterol 25-OH Vitamin D Total PTH Intact Urine pH Urine WBC (Auto) Urine Creatinine Urine Total Protein Fluid Total Protein Vancomycin Trough Rheumatoid Factor Complement C4 Miscellaneous Test Crossmatch 01/12/17 01/12/17 01/12/17 11:35 17:45 23:14 WBC RBC Hgb Hct MCV MCH MCHC RDW Plt Count Lymph % (Auto) [place] % (Auto) Lymph # [place] # Baso # Seg Neutrophils % Seg Neuts % (Manual) Lymphocytes % (Manual) Monocytes % (Manual) Eosinophils % (Manual) Basophils % (Manual) Nucleated RBC % Seg Neutrophils # Seg Neutrophils # Man Lymphocytes # (Manual) Monocytes # (Manual) Eosinophils # (Manual) Basophils # (Manual) PT INR Fibrinogen dRVVT Confirm Interp Factor V Activity POC ABG pH POC ABG pCO2 POC ABG pO2 ABG pO2 ABG HCO3 ABG Base Excess ABG Hemoglobin Oxyhemoglobin Sodium Potassium Chloride Carbon Dioxide BUN Creatinine Glucose POC Glucose 146 H 117 H 123 H Lactic Acid Calcium Ionized Calcium Phosphorus Magnesium Direct Bilirubin AST ALT Alkaline Phosphatase Lactate Dehydrogenase Troponin T C-Reactive Protein Total Protein Albumin Prealbumin Triglycerides Cholesterol LDL Cholesterol Direct HDL Cholesterol 25-OH Vitamin D Total PTH Intact Urine pH Urine WBC (Auto) Urine Creatinine Urine Total Protein Fluid Total Protein Vancomycin Trough Rheumatoid Factor Complement C4 Miscellaneous Test Crossmatch 01/13/17 01/13/17 01/13/17 05:32 06:00 12:10 WBC RBC Hgb Hct MCV MCH MCHC RDW Plt Count Lymph % (Auto) [place] % (Auto) Lymph # [place] # Baso # Seg Neutrophils % Seg Neuts % (Manual) Lymphocytes % (Manual) Monocytes % (Manual) Eosinophils % (Manual) Basophils % (Manual) Nucleated RBC % Seg Neutrophils # Seg Neutrophils # Man Lymphocytes # (Manual) Monocytes # (Manual) Eosinophils # (Manual) Basophils # (Manual) PT INR Fibrinogen dRVVT Confirm Interp Factor V Activity POC ABG pH POC ABG pCO2 POC ABG pO2 ABG pO2 ABG HCO3 ABG Base Excess ABG Hemoglobin Oxyhemoglobin Sodium Potassium Chloride Carbon Dioxide BUN 80 H Creatinine 1.4 H Glucose 106 H POC Glucose 106 H Lactic Acid Calcium Ionized Calcium Phosphorus Magnesium Direct Bilirubin AST ALT Alkaline Phosphatase Lactate Dehydrogenase Troponin T C-Reactive Protein Total Protein Albumin Prealbumin Triglycerides Cholesterol LDL Cholesterol Direct HDL Cholesterol 25-OH Vitamin D Total PTH Intact Urine pH Urine WBC (Auto) Urine Creatinine Urine Total Protein Fluid Total Protein 3.0 L Vancomycin Trough Rheumatoid Factor Complement C4 Miscellaneous Test Crossmatch 01/13/17 01/13/17 01/13/17 12:17 15:50 17:30 WBC RBC Hgb Hct MCV MCH MCHC RDW Plt Count Lymph % (Auto) [place] % (Auto) Lymph # [place] # Baso # Seg Neutrophils % Seg Neuts % (Manual) Lymphocytes % (Manual) Monocytes % (Manual) Eosinophils % (Manual) Basophils % (Manual) Nucleated RBC % Seg Neutrophils # Seg Neutrophils # Man Lymphocytes # (Manual) Monocytes # (Manual) Eosinophils # (Manual) Basophils # (Manual) PT 15.4 H INR 1.16 H Fibrinogen dRVVT Confirm Interp Factor V Activity POC ABG pH POC ABG pCO2 POC ABG pO2 ABG pO2 ABG HCO3 ABG Base Excess ABG Hemoglobin Oxyhemoglobin Sodium Potassium Chloride Carbon Dioxide BUN Creatinine Glucose POC Glucose 168 H 110 H Lactic Acid Calcium Ionized Calcium Phosphorus Magnesium Direct Bilirubin AST ALT Alkaline Phosphatase Lactate Dehydrogenase Troponin T C-Reactive Protein Total Protein Albumin Prealbumin Triglycerides Cholesterol LDL Cholesterol Direct HDL Cholesterol 25-OH Vitamin D Total PTH Intact Urine pH Urine WBC (Auto) Urine Creatinine Urine Total Protein Fluid Total Protein Vancomycin Trough Rheumatoid Factor Complement C4 Miscellaneous Test Crossmatch 01/13/17 01/14/17 01/14/17 23:42 05:24 05:30 WBC RBC Hgb Hct MCV MCH MCHC RDW Plt Count Lymph % (Auto) [place] % (Auto) Lymph # [place] # Baso # Seg Neutrophils % Seg Neuts % (Manual) Lymphocytes % (Manual) Monocytes % (Manual) Eosinophils % (Manual) Basophils % (Manual) Nucleated RBC % Seg Neutrophils # Seg Neutrophils # Man Lymphocytes # (Manual) Monocytes # (Manual) Eosinophils # (Manual) Basophils # (Manual) PT INR Fibrinogen dRVVT Confirm Interp Factor V Activity POC ABG pH POC ABG pCO2 POC ABG pO2 ABG pO2 ABG HCO3 ABG Base Excess ABG Hemoglobin Oxyhemoglobin Sodium Potassium Chloride Carbon Dioxide BUN 58 H Creatinine Glucose 114 H POC Glucose 155 H 121 H Lactic Acid Calcium Ionized Calcium Phosphorus Magnesium Direct Bilirubin AST ALT Alkaline Phosphatase Lactate Dehydrogenase Troponin T C-Reactive Protein Total Protein Albumin Prealbumin Triglycerides Cholesterol LDL Cholesterol Direct HDL Cholesterol 25-OH Vitamin D Total PTH Intact Urine pH Urine WBC (Auto) Urine Creatinine Urine Total Protein Fluid Total Protein Vancomycin Trough Rheumatoid Factor Complement C4 Miscellaneous Test Crossmatch 01/14/17 01/14/17 01/15/17 12:48 17:36 00:15 WBC RBC Hgb Hct MCV MCH MCHC RDW Plt Count Lymph % (Auto) [place] % (Auto) Lymph # [place] # Baso # Seg Neutrophils % Seg Neuts % (Manual) Lymphocytes % (Manual) Monocytes % (Manual) Eosinophils % (Manual) Basophils % (Manual) Nucleated RBC % Seg Neutrophils # Seg Neutrophils # Man Lymphocytes # (Manual) Monocytes # (Manual) Eosinophils # (Manual) Basophils # (Manual) PT INR Fibrinogen dRVVT Confirm Interp Factor V Activity POC ABG pH POC ABG pCO2 POC ABG pO2 ABG pO2 ABG HCO3 ABG Base Excess ABG Hemoglobin Oxyhemoglobin Sodium Potassium Chloride Carbon Dioxide BUN Creatinine Glucose POC Glucose 130 H 135 H 132 H Lactic Acid Calcium Ionized Calcium Phosphorus Magnesium Direct Bilirubin AST ALT Alkaline Phosphatase Lactate Dehydrogenase Troponin T C-Reactive Protein Total Protein Albumin Prealbumin Triglycerides Cholesterol LDL Cholesterol Direct HDL Cholesterol 25-OH Vitamin D Total PTH Intact Urine pH Urine WBC (Auto) Urine Creatinine Urine Total Protein Fluid Total Protein Vancomycin Trough Rheumatoid Factor Complement C4 Miscellaneous Test Crossmatch 01/15/17 01/15/17 01/15/17 05:01 11:55 12:45 WBC 16.2 H RBC 3.00 L Hgb 8.1 L Hct 25.4 L MCV MCH 27 L MCHC RDW 17.6 H Plt Count Lymph % (Auto) 11.7 L [place] % (Auto) 7.8 H Lymph # [place] # 1.3 H Baso # Seg Neutrophils % 80.1 H Seg Neuts % (Manual) Lymphocytes % (Manual) Monocytes % (Manual) Eosinophils % (Manual) Basophils % (Manual) Nucleated RBC % Seg Neutrophils # 13.0 H Seg Neutrophils # Man Lymphocytes # (Manual) Monocytes # (Manual) Eosinophils # (Manual) Basophils # (Manual) PT INR Fibrinogen dRVVT Confirm Interp Factor V Activity POC ABG pH POC ABG pCO2 POC ABG pO2 ABG pO2 ABG HCO3 ABG Base Excess ABG Hemoglobin Oxyhemoglobin Sodium Potassium Chloride Carbon Dioxide BUN Creatinine Glucose POC Glucose 126 H 125 H Lactic Acid Calcium Ionized Calcium Phosphorus Magnesium Direct Bilirubin AST ALT Alkaline Phosphatase Lactate Dehydrogenase Troponin T C-Reactive Protein Total Protein Albumin Prealbumin Triglycerides Cholesterol LDL Cholesterol Direct HDL Cholesterol 25-OH Vitamin D Total PTH Intact Urine pH Urine WBC (Auto) Urine Creatinine Urine Total Protein Fluid Total Protein Vancomycin Trough Rheumatoid Factor Complement C4 Miscellaneous Test Crossmatch 01/15/17 01/15/17 01/15/17 12:45 17:31 23:39 WBC RBC Hgb Hct MCV MCH MCHC RDW Plt Count Lymph % (Auto) [place] % (Auto) Lymph # [place] # Baso # Seg Neutrophils % Seg Neuts % (Manual) Lymphocytes % (Manual) Monocytes % (Manual) Eosinophils % (Manual) Basophils % (Manual) Nucleated RBC % Seg Neutrophils # Seg Neutrophils # Man Lymphocytes # (Manual) Monocytes # (Manual) Eosinophils # (Manual) Basophils # (Manual) PT INR Fibrinogen dRVVT Confirm Interp Factor V Activity POC ABG pH POC ABG pCO2 POC ABG pO2 ABG pO2 ABG HCO3 ABG Base Excess ABG Hemoglobin Oxyhemoglobin Sodium 136 L Potassium Chloride Carbon Dioxide BUN 87 H Creatinine 1.7 H Glucose 108 H POC Glucose 129 H 112 H Lactic Acid Calcium Ionized Calcium Phosphorus Magnesium Direct Bilirubin AST ALT Alkaline Phosphatase Lactate Dehydrogenase Troponin T C-Reactive Protein Total Protein Albumin Prealbumin Triglycerides Cholesterol LDL Cholesterol Direct HDL Cholesterol 25-OH Vitamin D Total PTH Intact Urine pH Urine WBC (Auto) Urine Creatinine Urine Total Protein Fluid Total Protein Vancomycin Trough Rheumatoid Factor Complement C4 Miscellaneous Test Crossmatch 01/16/17 01/16/17 01/16/17 05:23 11:42 12:32 WBC RBC Hgb Hct MCV MCH MCHC RDW Plt Count Lymph % (Auto) [place] % (Auto) Lymph # [place] # Baso # Seg Neutrophils % Seg Neuts % (Manual) Lymphocytes % (Manual) Monocytes % (Manual) Eosinophils % (Manual) Basophils % (Manual) Nucleated RBC % Seg Neutrophils # Seg Neutrophils # Man Lymphocytes # (Manual) Monocytes # (Manual) Eosinophils # (Manual) Basophils # (Manual) PT INR Fibrinogen dRVVT Confirm Interp Factor V Activity POC ABG pH 7.499 H POC ABG pCO2 30.9 L POC ABG pO2 51 L ABG pO2 ABG HCO3 ABG Base Excess ABG Hemoglobin Oxyhemoglobin Sodium Potassium Chloride Carbon Dioxide BUN Creatinine Glucose POC Glucose 118 H 133 H Lactic Acid Calcium Ionized Calcium Phosphorus Magnesium Direct Bilirubin AST ALT Alkaline Phosphatase Lactate Dehydrogenase Troponin T C-Reactive Protein Total Protein Albumin Prealbumin Triglycerides Cholesterol LDL Cholesterol Direct HDL Cholesterol 25-OH Vitamin D Total PTH Intact Urine pH Urine WBC (Auto) Urine Creatinine Urine Total Protein Fluid Total Protein Vancomycin Trough Rheumatoid Factor Complement C4 Miscellaneous Test Crossmatch 01/16/17 01/16/17 01/16/17 17:52 23:57 Unknown WBC RBC Hgb Hct MCV MCH MCHC RDW Plt Count Lymph % (Auto) [place] % (Auto) Lymph # [place] # Baso # Seg Neutrophils % Seg Neuts % (Manual) Lymphocytes % (Manual) Monocytes % (Manual) Eosinophils % (Manual) Basophils % (Manual) Nucleated RBC % Seg Neutrophils # Seg Neutrophils # Man Lymphocytes # (Manual) Monocytes # (Manual) Eosinophils # (Manual) Basophils # (Manual) PT INR Fibrinogen dRVVT Confirm Interp Factor V Activity POC ABG pH POC ABG pCO2 POC ABG pO2 ABG pO2 ABG HCO3 ABG Base Excess ABG Hemoglobin Oxyhemoglobin Sodium 135 L Potassium Chloride Carbon Dioxide BUN 101 H Creatinine 1.8 H Glucose 117 H POC Glucose 130 H 143 H Lactic Acid Calcium Ionized Calcium Phosphorus 5.80 H Magnesium Direct Bilirubin AST ALT Alkaline Phosphatase Lactate Dehydrogenase Troponin T C-Reactive Protein Total Protein Albumin Prealbumin Triglycerides Cholesterol LDL Cholesterol Direct HDL Cholesterol 25-OH Vitamin D Total PTH Intact Urine pH Urine WBC (Auto) Urine Creatinine Urine Total Protein Fluid Total Protein Vancomycin Trough Rheumatoid Factor Complement C4 Miscellaneous Test Crossmatch 01/17/17 01/17/17 01/17/17 05:30 05:46 11:49 WBC RBC Hgb Hct MCV MCH MCHC RDW Plt Count Lymph % (Auto) [place] % (Auto) Lymph # [place] # Baso # Seg Neutrophils % Seg Neuts % (Manual) Lymphocytes % (Manual) Monocytes % (Manual) Eosinophils % (Manual) Basophils % (Manual) Nucleated RBC % Seg Neutrophils # Seg Neutrophils # Man Lymphocytes # (Manual) Monocytes # (Manual) Eosinophils # (Manual) Basophils # (Manual) PT INR Fibrinogen dRVVT Confirm Interp Factor V Activity POC ABG pH POC ABG pCO2 POC ABG pO2 ABG pO2 ABG HCO3 ABG Base Excess ABG Hemoglobin Oxyhemoglobin Sodium 134 L Potassium Chloride 95.8 L Carbon Dioxide BUN 66 H Creatinine 1.3 H Glucose 138 H POC Glucose 147 H 124 H Lactic Acid Calcium Ionized Calcium Phosphorus Magnesium Direct Bilirubin AST ALT Alkaline Phosphatase 254 H Lactate Dehydrogenase Troponin T C-Reactive Protein Total Protein Albumin 1.3 L Prealbumin Triglycerides Cholesterol LDL Cholesterol Direct HDL Cholesterol 25-OH Vitamin D Total PTH Intact Urine pH Urine WBC (Auto) Urine Creatinine Urine Total Protein Fluid Total Protein Vancomycin Trough Rheumatoid Factor Complement C4 Miscellaneous Test Crossmatch 01/17/17 01/17/17 01/18/17 17:30 23:41 05:15 WBC RBC Hgb Hct MCV MCH MCHC RDW Plt Count Lymph % (Auto) [place] % (Auto) Lymph # [place] # Baso # Seg Neutrophils % Seg Neuts % (Manual) Lymphocytes % (Manual) Monocytes % (Manual) Eosinophils % (Manual) Basophils % (Manual) Nucleated RBC % Seg Neutrophils # Seg Neutrophils # Man Lymphocytes # (Manual) Monocytes # (Manual) Eosinophils # (Manual) Basophils # (Manual) PT INR Fibrinogen dRVVT Confirm Interp Factor V Activity POC ABG pH POC ABG pCO2 POC ABG pO2 ABG pO2 ABG HCO3 ABG Base Excess ABG Hemoglobin Oxyhemoglobin Sodium Potassium Chloride Carbon Dioxide BUN 89 H Creatinine 1.7 H Glucose 118 H POC Glucose 137 H 119 H Lactic Acid Calcium Ionized Calcium Phosphorus Magnesium Direct Bilirubin AST ALT Alkaline Phosphatase Lactate Dehydrogenase Troponin T C-Reactive Protein Total Protein Albumin Prealbumin Triglycerides Cholesterol LDL Cholesterol Direct HDL Cholesterol 25-OH Vitamin D Total PTH Intact Urine pH Urine WBC (Auto) Urine Creatinine Urine Total Protein Fluid Total Protein Vancomycin Trough Rheumatoid Factor Complement C4 Miscellaneous Test Crossmatch 01/18/17 01/18/17 01/18/17 05:19 12:16 18:11 WBC RBC Hgb Hct MCV MCH MCHC RDW Plt Count Lymph % (Auto) [place] % (Auto) Lymph # [place] # Baso # Seg Neutrophils % Seg Neuts % (Manual) Lymphocytes % (Manual) Monocytes % (Manual) Eosinophils % (Manual) Basophils % (Manual) Nucleated RBC % Seg Neutrophils # Seg Neutrophils # Man Lymphocytes # (Manual) Monocytes # (Manual) Eosinophils # (Manual) Basophils # (Manual) PT INR Fibrinogen dRVVT Confirm Interp Factor V Activity POC ABG pH POC ABG pCO2 POC ABG pO2 ABG pO2 ABG HCO3 ABG Base Excess ABG Hemoglobin Oxyhemoglobin Sodium Potassium Chloride Carbon Dioxide BUN Creatinine Glucose POC Glucose 134 H 188 H 113 H Lactic Acid Calcium Ionized Calcium Phosphorus Magnesium Direct Bilirubin AST ALT Alkaline Phosphatase Lactate Dehydrogenase Troponin T C-Reactive Protein Total Protein Albumin Prealbumin Triglycerides Cholesterol LDL Cholesterol Direct HDL Cholesterol 25-OH Vitamin D Total PTH Intact Urine pH Urine WBC (Auto) Urine Creatinine Urine Total Protein Fluid Total Protein Vancomycin Trough Rheumatoid Factor Complement C4 Miscellaneous Test Crossmatch 01/19/17 01/19/17 01/19/17 00:00 05:30 05:36 WBC RBC Hgb Hct MCV MCH MCHC RDW Plt Count Lymph % (Auto) [place] % (Auto) Lymph # [place] # Baso # Seg Neutrophils % Seg Neuts % (Manual) Lymphocytes % (Manual) Monocytes % (Manual) Eosinophils % (Manual) Basophils % (Manual) Nucleated RBC % Seg Neutrophils # Seg Neutrophils # Man Lymphocytes # (Manual) Monocytes # (Manual) Eosinophils # (Manual) Basophils # (Manual) PT INR Fibrinogen dRVVT Confirm Interp Factor V Activity POC ABG pH POC ABG pCO2 POC ABG pO2 ABG pO2 ABG HCO3 ABG Base Excess ABG Hemoglobin Oxyhemoglobin Sodium Potassium Chloride Carbon Dioxide BUN 70 H Creatinine 1.5 H Glucose 121 H POC Glucose 137 H 155 H Lactic Acid Calcium Ionized Calcium Phosphorus 2.10 L D Magnesium Direct Bilirubin AST ALT Alkaline Phosphatase Lactate Dehydrogenase Troponin T C-Reactive Protein Total Protein Albumin Prealbumin Triglycerides Cholesterol LDL Cholesterol Direct HDL Cholesterol 25-OH Vitamin D Total PTH Intact Urine pH Urine WBC (Auto) Urine Creatinine Urine Total Protein Fluid Total Protein Vancomycin Trough Rheumatoid Factor Complement C4 Miscellaneous Test Crossmatch 01/19/17 01/19/17 01/19/17 11:59 15:32 17:57 WBC RBC Hgb Hct MCV MCH MCHC RDW Plt Count Lymph % (Auto) [place] % (Auto) Lymph # [place] # Baso # Seg Neutrophils % Seg Neuts % (Manual) Lymphocytes % (Manual) Monocytes % (Manual) Eosinophils % (Manual) Basophils % (Manual) Nucleated RBC % Seg Neutrophils # Seg Neutrophils # Man Lymphocytes # (Manual) Monocytes # (Manual) Eosinophils # (Manual) Basophils # (Manual) PT INR Fibrinogen dRVVT Confirm Interp Factor V Activity POC ABG pH POC ABG pCO2 33.1 L POC ABG pO2 76 L ABG pO2 ABG HCO3 ABG Base Excess ABG Hemoglobin Oxyhemoglobin Sodium Potassium Chloride Carbon Dioxide BUN Creatinine Glucose POC Glucose 156 H 129 H Lactic Acid Calcium Ionized Calcium Phosphorus Magnesium Direct Bilirubin AST ALT Alkaline Phosphatase Lactate Dehydrogenase Troponin T C-Reactive Protein Total Protein Albumin Prealbumin Triglycerides Cholesterol LDL Cholesterol Direct HDL Cholesterol 25-OH Vitamin D Total PTH Intact Urine pH Urine WBC (Auto) Urine Creatinine Urine Total Protein Fluid Total Protein Vancomycin Trough Rheumatoid Factor Complement C4 Miscellaneous Test Crossmatch 01/19/17 01/20/17 01/20/17 23:49 04:00 05:21 WBC RBC Hgb Hct MCV MCH MCHC RDW Plt Count Lymph % (Auto) [place] % (Auto) Lymph # [place] # Baso # Seg Neutrophils % Seg Neuts % (Manual) Lymphocytes % (Manual) Monocytes % (Manual) Eosinophils % (Manual) Basophils % (Manual) Nucleated RBC % Seg Neutrophils # Seg Neutrophils # Man Lymphocytes # (Manual) Monocytes # (Manual) Eosinophils # (Manual) Basophils # (Manual) PT INR Fibrinogen dRVVT Confirm Interp Factor V Activity POC ABG pH POC ABG pCO2 POC ABG pO2 ABG pO2 ABG HCO3 ABG Base Excess ABG Hemoglobin Oxyhemoglobin Sodium Potassium Chloride Carbon Dioxide BUN 96 H Creatinine 1.9 H Glucose 106 H POC Glucose 125 H 130 H Lactic Acid Calcium Ionized Calcium Phosphorus 2.40 L Magnesium Direct Bilirubin AST ALT Alkaline Phosphatase Lactate Dehydrogenase Troponin T C-Reactive Protein Total Protein Albumin Prealbumin Triglycerides Cholesterol LDL Cholesterol Direct HDL Cholesterol 25-OH Vitamin D Total PTH Intact Urine pH Urine WBC (Auto) Urine Creatinine Urine Total Protein Fluid Total Protein Vancomycin Trough Rheumatoid Factor Complement C4 Miscellaneous Test Crossmatch 01/20/17 01/20/17 01/20/17 11:58 12:17 17:26 WBC RBC Hgb Hct MCV MCH MCHC RDW Plt Count Lymph % (Auto) [place] % (Auto) Lymph # [place] # Baso # Seg Neutrophils % Seg Neuts % (Manual) Lymphocytes % (Manual) Monocytes % (Manual) Eosinophils % (Manual) Basophils % (Manual) Nucleated RBC % Seg Neutrophils # Seg Neutrophils # Man Lymphocytes # (Manual) Monocytes # (Manual) Eosinophils # (Manual) Basophils # (Manual) PT INR Fibrinogen dRVVT Confirm Interp Factor V Activity POC ABG pH POC ABG pCO2 POC ABG pO2 70 L ABG pO2 ABG HCO3 ABG Base Excess ABG Hemoglobin Oxyhemoglobin Sodium Potassium Chloride Carbon Dioxide BUN Creatinine Glucose POC Glucose 118 H 154 H Lactic Acid Calcium Ionized Calcium Phosphorus Magnesium Direct Bilirubin AST ALT Alkaline Phosphatase Lactate Dehydrogenase Troponin T C-Reactive Protein Total Protein Albumin Prealbumin Triglycerides Cholesterol LDL Cholesterol Direct HDL Cholesterol 25-OH Vitamin D Total PTH Intact Urine pH Urine WBC (Auto) Urine Creatinine Urine Total Protein Fluid Total Protein Vancomycin Trough Rheumatoid Factor Complement C4 Miscellaneous Test Crossmatch 01/21/17 01/21/17 01/21/17 04:00 04:56 11:46 WBC RBC Hgb Hct MCV MCH MCHC RDW Plt Count Lymph % (Auto) [place] % (Auto) Lymph # [place] # Baso # Seg Neutrophils % Seg Neuts % (Manual) Lymphocytes % (Manual) Monocytes % (Manual) Eosinophils % (Manual) Basophils % (Manual) Nucleated RBC % Seg Neutrophils # Seg Neutrophils # Man Lymphocytes # (Manual) Monocytes # (Manual) Eosinophils # (Manual) Basophils # (Manual) PT INR Fibrinogen dRVVT Confirm Interp Factor V Activity POC ABG pH POC ABG pCO2 POC ABG pO2 ABG pO2 ABG HCO3 ABG Base Excess ABG Hemoglobin Oxyhemoglobin Sodium Potassium 3.5 L Chloride 97.4 L Carbon Dioxide BUN 66 H Creatinine 1.4 H Glucose POC Glucose 116 H 106 H Lactic Acid Calcium Ionized Calcium Phosphorus 2.10 L Magnesium Direct Bilirubin AST ALT Alkaline Phosphatase Lactate Dehydrogenase Troponin T C-Reactive Protein Total Protein Albumin Prealbumin Triglycerides Cholesterol LDL Cholesterol Direct HDL Cholesterol 25-OH Vitamin D Total PTH Intact Urine pH Urine WBC (Auto) Urine Creatinine Urine Total Protein Fluid Total Protein Vancomycin Trough Rheumatoid Factor Complement C4 Miscellaneous Test Crossmatch 01/21/17 01/21/17 01/22/17 17:25 23:49 05:35 WBC RBC Hgb Hct MCV MCH MCHC RDW Plt Count Lymph % (Auto) [place] % (Auto) Lymph # [place] # Baso # Seg Neutrophils % Seg Neuts % (Manual) Lymphocytes % (Manual) Monocytes % (Manual) Eosinophils % (Manual) Basophils % (Manual) Nucleated RBC % Seg Neutrophils # Seg Neutrophils # Man Lymphocytes # (Manual) Monocytes # (Manual) Eosinophils # (Manual) Basophils # (Manual) PT INR Fibrinogen dRVVT Confirm Interp Factor V Activity POC ABG pH POC ABG pCO2 POC ABG pO2 ABG pO2 ABG HCO3 ABG Base Excess ABG Hemoglobin Oxyhemoglobin Sodium Potassium Chloride Carbon Dioxide BUN Creatinine Glucose POC Glucose 106 H 133 H 107 H Lactic Acid Calcium Ionized Calcium Phosphorus Magnesium Direct Bilirubin AST ALT Alkaline Phosphatase Lactate Dehydrogenase Troponin T C-Reactive Protein Total Protein Albumin Prealbumin Triglycerides Cholesterol LDL Cholesterol Direct HDL Cholesterol 25-OH Vitamin D Total PTH Intact Urine pH Urine WBC (Auto) Urine Creatinine Urine Total Protein Fluid Total Protein Vancomycin Trough Rheumatoid Factor Complement C4 Miscellaneous Test Crossmatch 01/22/17 01/22/17 01/22/17 07:20 07:20 11:31 WBC RBC 2.75 L Hgb 7.5 L Hct 22.7 L MCV MCH 27 L MCHC RDW 17.5 H Plt Count Lymph % (Auto) [place] % (Auto) Lymph # [place] # Baso # Seg Neutrophils % Seg Neuts % (Manual) Lymphocytes % (Manual) Monocytes % (Manual) Eosinophils % (Manual) Basophils % (Manual) Nucleated RBC % Seg Neutrophils # Seg Neutrophils # Man Lymphocytes # (Manual) Monocytes # (Manual) Eosinophils # (Manual) Basophils # (Manual) PT INR Fibrinogen dRVVT Confirm Interp Factor V Activity POC ABG pH POC ABG pCO2 POC ABG pO2 ABG pO2 ABG HCO3 ABG Base Excess ABG Hemoglobin Oxyhemoglobin Sodium Potassium 3.3 L Chloride Carbon Dioxide BUN 42 H Creatinine Glucose 105 H POC Glucose 124 H Lactic Acid Calcium Ionized Calcium Phosphorus 1.70 L Magnesium Direct Bilirubin AST ALT Alkaline Phosphatase Lactate Dehydrogenase Troponin T C-Reactive Protein Total Protein Albumin Prealbumin Triglycerides Cholesterol LDL Cholesterol Direct HDL Cholesterol 25-OH Vitamin D Total PTH Intact Urine pH Urine WBC (Auto) Urine Creatinine Urine Total Protein Fluid Total Protein Vancomycin Trough Rheumatoid Factor Complement C4 Miscellaneous Test Crossmatch 01/22/17 01/22/17 01/23/17 17:16 23:35 05:35 WBC RBC Hgb Hct MCV MCH MCHC RDW Plt Count Lymph % (Auto) [place] % (Auto) Lymph # [place] # Baso # Seg Neutrophils % Seg Neuts % (Manual) Lymphocytes % (Manual) Monocytes % (Manual) Eosinophils % (Manual) Basophils % (Manual) Nucleated RBC % Seg Neutrophils # Seg Neutrophils # Man Lymphocytes # (Manual) Monocytes # (Manual) Eosinophils # (Manual) Basophils # (Manual) PT INR Fibrinogen dRVVT Confirm Interp Factor V Activity POC ABG pH POC ABG pCO2 POC ABG pO2 ABG pO2 ABG HCO3 ABG Base Excess ABG Hemoglobin Oxyhemoglobin Sodium Potassium Chloride Carbon Dioxide BUN Creatinine Glucose POC Glucose 135 H 120 H 111 H Lactic Acid Calcium Ionized Calcium Phosphorus Magnesium Direct Bilirubin AST ALT Alkaline Phosphatase Lactate Dehydrogenase Troponin T C-Reactive Protein Total Protein Albumin Prealbumin Triglycerides Cholesterol LDL Cholesterol Direct HDL Cholesterol 25-OH Vitamin D Total PTH Intact Urine pH Urine WBC (Auto) Urine Creatinine Urine Total Protein Fluid Total Protein Vancomycin Trough Rheumatoid Factor Complement C4 Miscellaneous Test Crossmatch 01/23/17 01/23/17 01/23/17 06:10 17:27 23:44 WBC RBC Hgb Hct MCV MCH MCHC RDW Plt Count Lymph % (Auto) [place] % (Auto) Lymph # [place] # Baso # Seg Neutrophils % Seg Neuts % (Manual) Lymphocytes % (Manual) Monocytes % (Manual) Eosinophils % (Manual) Basophils % (Manual) Nucleated RBC % Seg Neutrophils # Seg Neutrophils # Man Lymphocytes # (Manual) Monocytes # (Manual) Eosinophils # (Manual) Basophils # (Manual) PT INR Fibrinogen dRVVT Confirm Interp Factor V Activity POC ABG pH POC ABG pCO2 POC ABG pO2 ABG pO2 ABG HCO3 ABG Base Excess ABG Hemoglobin Oxyhemoglobin Sodium Potassium 3.3 L Chloride Carbon Dioxide BUN 66 H Creatinine 1.3 H Glucose 109 H POC Glucose 120 H 115 H Lactic Acid Calcium Ionized Calcium Phosphorus 2.20 L D Magnesium Direct Bilirubin AST ALT Alkaline Phosphatase Lactate Dehydrogenase Troponin T C-Reactive Protein Total Protein Albumin Prealbumin Triglycerides Cholesterol LDL Cholesterol Direct HDL Cholesterol 25-OH Vitamin D Total PTH Intact Urine pH Urine WBC (Auto) Urine Creatinine Urine Total Protein Fluid Total Protein Vancomycin Trough Rheumatoid Factor Complement C4 Miscellaneous Test Crossmatch 01/24/17 01/24/17 01/24/17 05:19 05:50 12:19 WBC RBC Hgb Hct MCV MCH MCHC RDW Plt Count Lymph % (Auto) [place] % (Auto) Lymph # [place] # Baso # Seg Neutrophils % Seg Neuts % (Manual) Lymphocytes % (Manual) Monocytes % (Manual) Eosinophils % (Manual) Basophils % (Manual) Nucleated RBC % Seg Neutrophils # Seg Neutrophils # Man Lymphocytes # (Manual) Monocytes # (Manual) Eosinophils # (Manual) Basophils # (Manual) PT INR Fibrinogen dRVVT Confirm Interp Factor V Activity POC ABG pH POC ABG pCO2 POC ABG pO2 ABG pO2 ABG HCO3 ABG Base Excess ABG Hemoglobin Oxyhemoglobin Sodium Potassium Chloride Carbon Dioxide BUN 47 H Creatinine Glucose 117 H POC Glucose 126 H 119 H Lactic Acid Calcium Ionized Calcium Phosphorus 2.30 L Magnesium 1.60 L Direct Bilirubin AST ALT Alkaline Phosphatase Lactate Dehydrogenase Troponin T C-Reactive Protein Total Protein Albumin Prealbumin Triglycerides Cholesterol LDL Cholesterol Direct HDL Cholesterol 25-OH Vitamin D Total PTH Intact Urine pH Urine WBC (Auto) Urine Creatinine Urine Total Protein Fluid Total Protein Vancomycin Trough Rheumatoid Factor Complement C4 Miscellaneous Test Crossmatch 01/24/17 01/25/17 01/25/17 17:08 00:37 04:00 WBC RBC Hgb Hct MCV MCH MCHC RDW Plt Count Lymph % (Auto) [place] % (Auto) Lymph # [place] # Baso # Seg Neutrophils % Seg Neuts % (Manual) Lymphocytes % (Manual) Monocytes % (Manual) Eosinophils % (Manual) Basophils % (Manual) Nucleated RBC % Seg Neutrophils # Seg Neutrophils # Man Lymphocytes # (Manual) Monocytes # (Manual) Eosinophils # (Manual) Basophils # (Manual) PT INR Fibrinogen dRVVT Confirm Interp Factor V Activity POC ABG pH POC ABG pCO2 POC ABG pO2 ABG pO2 ABG HCO3 ABG Base Excess ABG Hemoglobin Oxyhemoglobin Sodium Potassium Chloride Carbon Dioxide BUN 72 H Creatinine 1.3 H Glucose POC Glucose 127 H 110 H Lactic Acid Calcium Ionized Calcium Phosphorus Magnesium Direct Bilirubin AST ALT Alkaline Phosphatase Lactate Dehydrogenase Troponin T C-Reactive Protein Total Protein Albumin Prealbumin Triglycerides Cholesterol LDL Cholesterol Direct HDL Cholesterol 25-OH Vitamin D Total PTH Intact Urine pH Urine WBC (Auto) Urine Creatinine Urine Total Protein Fluid Total Protein Vancomycin Trough Rheumatoid Factor Complement C4 Miscellaneous Test Crossmatch 01/25/17 01/25/17 01/25/17 04:00 11:15 13:05 WBC RBC 2.49 L Hgb 6.7 L Hct 20.9 L MCV MCH 27 L MCHC RDW 18.8 H Plt Count Lymph % (Auto) [place] % (Auto) 10.1 H Lymph # [place] # 1.0 H Baso # Seg Neutrophils % Seg Neuts % (Manual) Lymphocytes % (Manual) Monocytes % (Manual) Eosinophils % (Manual) Basophils % (Manual) Nucleated RBC % Seg Neutrophils # Seg Neutrophils # Man Lymphocytes # (Manual) Monocytes # (Manual) Eosinophils # (Manual) Basophils # (Manual) PT INR Fibrinogen dRVVT Confirm Interp Factor V Activity POC ABG pH POC ABG pCO2 POC ABG pO2 ABG pO2 ABG HCO3 ABG Base Excess ABG Hemoglobin Oxyhemoglobin Sodium Potassium Chloride Carbon Dioxide BUN Creatinine Glucose POC Glucose 128 H Lactic Acid Calcium Ionized Calcium Phosphorus Magnesium Direct Bilirubin AST ALT Alkaline Phosphatase Lactate Dehydrogenase Troponin T C-Reactive Protein Total Protein Albumin Prealbumin Triglycerides Cholesterol LDL Cholesterol Direct HDL Cholesterol 25-OH Vitamin D Total PTH Intact Urine pH Urine WBC (Auto) Urine Creatinine Urine Total Protein Fluid Total Protein Vancomycin Trough Rheumatoid Factor Complement C4 Miscellaneous Test Crossmatch See Detail 01/25/17 01/25/17 01/26/17 18:02 23:07 01:20 WBC RBC Hgb Hct MCV MCH MCHC RDW Plt Count Lymph % (Auto) [place] % (Auto) Lymph # [place] # Baso # Seg Neutrophils % Seg Neuts % (Manual) Lymphocytes % (Manual) Monocytes % (Manual) Eosinophils % (Manual) Basophils % (Manual) Nucleated RBC % Seg Neutrophils # Seg Neutrophils # Man Lymphocytes # (Manual) Monocytes # (Manual) Eosinophils # (Manual) Basophils # (Manual) PT INR Fibrinogen dRVVT Confirm Interp Factor V Activity POC ABG pH POC ABG pCO2 POC ABG pO2 ABG pO2 ABG HCO3 ABG Base Excess ABG Hemoglobin Oxyhemoglobin Sodium Potassium Chloride Carbon Dioxide BUN Creatinine Glucose POC Glucose 120 H 123 H 112 H Lactic Acid Calcium Ionized Calcium Phosphorus Magnesium Direct Bilirubin AST ALT Alkaline Phosphatase Lactate Dehydrogenase Troponin T C-Reactive Protein Total Protein Albumin Prealbumin Triglycerides Cholesterol LDL Cholesterol Direct HDL Cholesterol 25-OH Vitamin D Total PTH Intact Urine pH Urine WBC (Auto) Urine Creatinine Urine Total Protein Fluid Total Protein Vancomycin Trough Rheumatoid Factor Complement C4 Miscellaneous Test Crossmatch 01/26/17 01/26/17 01/26/17 04:20 04:20 11:23 WBC 13.1 H RBC 3.28 L Hgb 9.0 L Hct 26.9 L D MCV MCH 27 L MCHC RDW 17.2 H Plt Count Lymph % (Auto) [place] % (Auto) 9.0 H Lymph # [place] # 1.2 H Baso # Seg Neutrophils % 73.1 H Seg Neuts % (Manual) Lymphocytes % (Manual) Monocytes % (Manual) Eosinophils % (Manual) Basophils % (Manual) Nucleated RBC % Seg Neutrophils # 9.6 H Seg Neutrophils # Man Lymphocytes # (Manual) Monocytes # (Manual) Eosinophils # (Manual) Basophils # (Manual) PT INR Fibrinogen dRVVT Confirm Interp Factor V Activity POC ABG pH POC ABG pCO2 POC ABG pO2 ABG pO2 ABG HCO3 ABG Base Excess ABG Hemoglobin Oxyhemoglobin Sodium Potassium Chloride Carbon Dioxide BUN 51 H Creatinine Glucose 117 H POC Glucose 125 H Lactic Acid Calcium Ionized Calcium Phosphorus Magnesium Direct Bilirubin AST ALT Alkaline Phosphatase Lactate Dehydrogenase Troponin T C-Reactive Protein Total Protein Albumin Prealbumin Triglycerides Cholesterol LDL Cholesterol Direct HDL Cholesterol 25-OH Vitamin D Total PTH Intact Urine pH Urine WBC (Auto) Urine Creatinine Urine Total Protein Fluid Total Protein Vancomycin Trough Rheumatoid Factor Complement C4 Miscellaneous Test Crossmatch 01/26/17 01/27/17 01/27/17 17:11 00:30 04:00 WBC RBC Hgb Hct MCV MCH MCHC RDW Plt Count Lymph % (Auto) [place] % (Auto) Lymph # [place] # Baso # Seg Neutrophils % Seg Neuts % (Manual) Lymphocytes % (Manual) Monocytes % (Manual) Eosinophils % (Manual) Basophils % (Manual) Nucleated RBC % Seg Neutrophils # Seg Neutrophils # Man Lymphocytes # (Manual) Monocytes # (Manual) Eosinophils # (Manual) Basophils # (Manual) PT INR Fibrinogen dRVVT Confirm Interp Factor V Activity POC ABG pH POC ABG pCO2 POC ABG pO2 ABG pO2 ABG HCO3 ABG Base Excess ABG Hemoglobin Oxyhemoglobin Sodium Potassium Chloride 97.7 L Carbon Dioxide 21 L BUN 79 H Creatinine 1.7 H D Glucose 112 H POC Glucose 133 H 135 H Lactic Acid Calcium Ionized Calcium Phosphorus 5.00 H D Magnesium Direct Bilirubin AST ALT Alkaline Phosphatase Lactate Dehydrogenase Troponin T C-Reactive Protein Total Protein Albumin Prealbumin Triglycerides Cholesterol LDL Cholesterol Direct HDL Cholesterol 25-OH Vitamin D Total PTH Intact Urine pH Urine WBC (Auto) Urine Creatinine Urine Total Protein Fluid Total Protein Vancomycin Trough Rheumatoid Factor Complement C4 Miscellaneous Test Crossmatch 01/27/17 01/27/17 01/27/17 05:12 12:18 17:25 WBC RBC Hgb Hct MCV MCH MCHC RDW Plt Count Lymph % (Auto) [place] % (Auto) Lymph # [place] # Baso # Seg Neutrophils % Seg Neuts % (Manual) Lymphocytes % (Manual) Monocytes % (Manual) Eosinophils % (Manual) Basophils % (Manual) Nucleated RBC % Seg Neutrophils # Seg Neutrophils # Man Lymphocytes # (Manual) Monocytes # (Manual) Eosinophils # (Manual) Basophils # (Manual) PT INR Fibrinogen dRVVT Confirm Interp Factor V Activity POC ABG pH POC ABG pCO2 POC ABG pO2 ABG pO2 ABG HCO3 ABG Base Excess ABG Hemoglobin Oxyhemoglobin Sodium Potassium Chloride Carbon Dioxide BUN Creatinine Glucose POC Glucose 116 H 153 H 152 H Lactic Acid Calcium Ionized Calcium Phosphorus Magnesium Direct Bilirubin AST ALT Alkaline Phosphatase Lactate Dehydrogenase Troponin T C-Reactive Protein Total Protein Albumin Prealbumin Triglycerides Cholesterol LDL Cholesterol Direct HDL Cholesterol 25-OH Vitamin D Total PTH Intact Urine pH Urine WBC (Auto) Urine Creatinine Urine Total Protein Fluid Total Protein Vancomycin Trough Rheumatoid Factor Complement C4 Miscellaneous Test Crossmatch 01/27/17 01/28/17 01/28/17 23:42 04:00 04:00 WBC 14.4 H RBC 2.82 L Hgb 7.4 L Hct 23.5 L MCV MCH 26 L MCHC RDW 17.6 H Plt Count Lymph % (Auto) 10.2 L [place] % (Auto) 11.0 H Lymph # [place] # 1.6 H Baso # Seg Neutrophils % 78.0 H Seg Neuts % (Manual) Lymphocytes % (Manual) Monocytes % (Manual) Eosinophils % (Manual) Basophils % (Manual) Nucleated RBC % Seg Neutrophils # 11.3 H Seg Neutrophils # Man Lymphocytes # (Manual) Monocytes # (Manual) Eosinophils # (Manual) Basophils # (Manual) PT INR Fibrinogen dRVVT Confirm Interp Factor V Activity POC ABG pH POC ABG pCO2 POC ABG pO2 ABG pO2 ABG HCO3 ABG Base Excess ABG Hemoglobin Oxyhemoglobin Sodium Potassium Chloride Carbon Dioxide BUN 55 H Creatinine 1.3 H Glucose 114 H POC Glucose 121 H Lactic Acid Calcium Ionized Calcium Phosphorus Magnesium Direct Bilirubin AST ALT Alkaline Phosphatase Lactate Dehydrogenase Troponin T C-Reactive Protein Total Protein Albumin 1.4 L Prealbumin Triglycerides Cholesterol LDL Cholesterol Direct HDL Cholesterol 25-OH Vitamin D Total PTH Intact Urine pH Urine WBC (Auto) Urine Creatinine Urine Total Protein Fluid Total Protein Vancomycin Trough Rheumatoid Factor Complement C4 Miscellaneous Test Crossmatch 01/28/17 01/28/17 01/29/17 04:59 12:30 00:02 WBC RBC Hgb Hct MCV MCH MCHC RDW Plt Count Lymph % (Auto) [place] % (Auto) Lymph # [place] # Baso # Seg Neutrophils % Seg Neuts % (Manual) Lymphocytes % (Manual) Monocytes % (Manual) Eosinophils % (Manual) Basophils % (Manual) Nucleated RBC % Seg Neutrophils # Seg Neutrophils # Man Lymphocytes # (Manual) Monocytes # (Manual) Eosinophils # (Manual) Basophils # (Manual) PT INR Fibrinogen dRVVT Confirm Interp Factor V Activity POC ABG pH POC ABG pCO2 POC ABG pO2 ABG pO2 ABG HCO3 ABG Base Excess ABG Hemoglobin Oxyhemoglobin Sodium Potassium Chloride Carbon Dioxide BUN Creatinine Glucose POC Glucose 126 H 119 H 138 H Lactic Acid Calcium Ionized Calcium Phosphorus Magnesium Direct Bilirubin AST ALT Alkaline Phosphatase Lactate Dehydrogenase Troponin T C-Reactive Protein Total Protein Albumin Prealbumin Triglycerides Cholesterol LDL Cholesterol Direct HDL Cholesterol 25-OH Vitamin D Total PTH Intact Urine pH Urine WBC (Auto) Urine Creatinine Urine Total Protein Fluid Total Protein Vancomycin Trough Rheumatoid Factor Complement C4 Miscellaneous Test Crossmatch 01/29/17 01/29/17 01/29/17 04:58 06:15 11:35 WBC RBC Hgb Hct MCV MCH MCHC RDW Plt Count Lymph % (Auto) [place] % (Auto) Lymph # [place] # Baso # Seg Neutrophils % Seg Neuts % (Manual) Lymphocytes % (Manual) Monocytes % (Manual) Eosinophils % (Manual) Basophils % (Manual) Nucleated RBC % Seg Neutrophils # Seg Neutrophils # Man Lymphocytes # (Manual) Monocytes # (Manual) Eosinophils # (Manual) Basophils # (Manual) PT INR Fibrinogen dRVVT Confirm Interp Factor V Activity POC ABG pH POC ABG pCO2 POC ABG pO2 ABG pO2 ABG HCO3 ABG Base Excess ABG Hemoglobin Oxyhemoglobin Sodium Potassium Chloride Carbon Dioxide BUN 85 H Creatinine 1.7 H Glucose 105 H POC Glucose 114 H 110 H Lactic Acid Calcium Ionized Calcium Phosphorus Magnesium 2.40 H Direct Bilirubin AST ALT Alkaline Phosphatase Lactate Dehydrogenase Troponin T C-Reactive Protein Total Protein Albumin Prealbumin Triglycerides Cholesterol LDL Cholesterol Direct HDL Cholesterol 25-OH Vitamin D Total PTH Intact Urine pH Urine WBC (Auto) Urine Creatinine Urine Total Protein Fluid Total Protein Vancomycin Trough Rheumatoid Factor Complement C4 Miscellaneous Test Crossmatch 01/29/17 01/29/17 01/30/17 18:24 23:41 05:12 WBC RBC Hgb Hct MCV MCH MCHC RDW Plt Count Lymph % (Auto) [place] % (Auto) Lymph # [place] # Baso # Seg Neutrophils % Seg Neuts % (Manual) Lymphocytes % (Manual) Monocytes % (Manual) Eosinophils % (Manual) Basophils % (Manual) Nucleated RBC % Seg Neutrophils # Seg Neutrophils # Man Lymphocytes # (Manual) Monocytes # (Manual) Eosinophils # (Manual) Basophils # (Manual) PT INR Fibrinogen dRVVT Confirm Interp Factor V Activity POC ABG pH POC ABG pCO2 POC ABG pO2 ABG pO2 ABG HCO3 ABG Base Excess ABG Hemoglobin Oxyhemoglobin Sodium Potassium Chloride Carbon Dioxide BUN Creatinine Glucose POC Glucose 109 H 134 H 109 H Lactic Acid Calcium Ionized Calcium Phosphorus Magnesium Direct Bilirubin AST ALT Alkaline Phosphatase Lactate Dehydrogenase Troponin T C-Reactive Protein Total Protein Albumin Prealbumin Triglycerides Cholesterol LDL Cholesterol Direct HDL Cholesterol 25-OH Vitamin D Total PTH Intact Urine pH Urine WBC (Auto) Urine Creatinine Urine Total Protein Fluid Total Protein Vancomycin Trough Rheumatoid Factor Complement C4 Miscellaneous Test Crossmatch 01/30/17 01/30/17 01/30/17 11:26 17:43 23:39 WBC RBC Hgb Hct MCV MCH MCHC RDW Plt Count Lymph % (Auto) [place] % (Auto) Lymph # [place] # Baso # Seg Neutrophils % Seg Neuts % (Manual) Lymphocytes % (Manual) Monocytes % (Manual) Eosinophils % (Manual) Basophils % (Manual) Nucleated RBC % Seg Neutrophils # Seg Neutrophils # Man Lymphocytes # (Manual) Monocytes # (Manual) Eosinophils # (Manual) Basophils # (Manual) PT INR Fibrinogen dRVVT Confirm Interp Factor V Activity POC ABG pH POC ABG pCO2 POC ABG pO2 ABG pO2 ABG HCO3 ABG Base Excess ABG Hemoglobin Oxyhemoglobin Sodium Potassium Chloride Carbon Dioxide BUN Creatinine Glucose POC Glucose 135 H 143 H 122 H Lactic Acid Calcium Ionized Calcium Phosphorus Magnesium Direct Bilirubin AST ALT Alkaline Phosphatase Lactate Dehydrogenase Troponin T C-Reactive Protein Total Protein Albumin Prealbumin Triglycerides Cholesterol LDL Cholesterol Direct HDL Cholesterol 25-OH Vitamin D Total PTH Intact Urine pH Urine WBC (Auto) Urine Creatinine Urine Total Protein Fluid Total Protein Vancomycin Trough Rheumatoid Factor Complement C4 Miscellaneous Test Crossmatch 01/31/17 01/31/17 01/31/17 04:00 05:40 11:12 WBC RBC Hgb Hct MCV MCH MCHC RDW Plt Count Lymph % (Auto) [place] % (Auto) Lymph # [place] # Baso # Seg Neutrophils % Seg Neuts % (Manual) Lymphocytes % (Manual) Monocytes % (Manual) Eosinophils % (Manual) Basophils % (Manual) Nucleated RBC % Seg Neutrophils # Seg Neutrophils # Man Lymphocytes # (Manual) Monocytes # (Manual) Eosinophils # (Manual) Basophils # (Manual) PT INR Fibrinogen dRVVT Confirm Interp Factor V Activity POC ABG pH POC ABG pCO2 POC ABG pO2 ABG pO2 ABG HCO3 ABG Base Excess ABG Hemoglobin Oxyhemoglobin Sodium Potassium Chloride Carbon Dioxide BUN 78 H Creatinine 1.5 H Glucose 108 H POC Glucose 123 H Lactic Acid Calcium Ionized Calcium Phosphorus Magnesium Direct Bilirubin AST ALT Alkaline Phosphatase Lactate Dehydrogenase Troponin T C-Reactive Protein 8.10 H Total Protein Albumin Prealbumin Triglycerides Cholesterol LDL Cholesterol Direct HDL Cholesterol 25-OH Vitamin D Total PTH Intact Urine pH Urine WBC (Auto) Urine Creatinine Urine Total Protein Fluid Total Protein Vancomycin Trough Rheumatoid Factor Complement C4 Miscellaneous Test Crossmatch 01/31/17 01/31/17 01/31/17 11:16 17:45 17:50 WBC RBC Hgb Hct MCV MCH MCHC RDW Plt Count Lymph % (Auto) [place] % (Auto) Lymph # [place] # Baso # Seg Neutrophils % Seg Neuts % (Manual) Lymphocytes % (Manual) Monocytes % (Manual) Eosinophils % (Manual) Basophils % (Manual) Nucleated RBC % Seg Neutrophils # Seg Neutrophils # Man Lymphocytes # (Manual) Monocytes # (Manual) Eosinophils # (Manual) Basophils # (Manual) PT INR Fibrinogen dRVVT Confirm Interp Factor V Activity POC ABG pH POC ABG pCO2 POC ABG pO2 ABG pO2 ABG HCO3 ABG Base Excess ABG Hemoglobin Oxyhemoglobin Sodium Potassium Chloride Carbon Dioxide BUN Creatinine Glucose POC Glucose 119 H 111 H Lactic Acid Calcium Ionized Calcium Phosphorus Magnesium Direct Bilirubin AST ALT Alkaline Phosphatase Lactate Dehydrogenase Troponin T C-Reactive Protein Total Protein Albumin Prealbumin Triglycerides Cholesterol LDL Cholesterol Direct HDL Cholesterol 25-OH Vitamin D Total PTH Intact 6.76 L Urine pH Urine WBC (Auto) Urine Creatinine Urine Total Protein Fluid Total Protein Vancomycin Trough Rheumatoid Factor Complement C4 Miscellaneous Test Crossmatch 01/31/17 02/01/17 02/01/17 23:19 05:42 09:24 WBC RBC Hgb Hct MCV MCH MCHC RDW Plt Count Lymph % (Auto) [place] % (Auto) Lymph # [place] # Baso # Seg Neutrophils % Seg Neuts % (Manual) Lymphocytes % (Manual) Monocytes % (Manual) Eosinophils % (Manual) Basophils % (Manual) Nucleated RBC % Seg Neutrophils # Seg Neutrophils # Man Lymphocytes # (Manual) Monocytes # (Manual) Eosinophils # (Manual) Basophils # (Manual) PT INR Fibrinogen dRVVT Confirm Interp Factor V Activity POC ABG pH POC ABG pCO2 POC ABG pO2 ABG pO2 ABG HCO3 ABG Base Excess ABG Hemoglobin Oxyhemoglobin Sodium Potassium Chloride Carbon Dioxide BUN Creatinine Glucose POC Glucose 118 H 122 H Lactic Acid Calcium Ionized Calcium Phosphorus Magnesium 2.60 H Direct Bilirubin AST ALT Alkaline Phosphatase Lactate Dehydrogenase Troponin T C-Reactive Protein Total Protein Albumin Prealbumin Triglycerides Cholesterol LDL Cholesterol Direct HDL Cholesterol 25-OH Vitamin D Total PTH Intact Urine pH Urine WBC (Auto) Urine Creatinine Urine Total Protein Fluid Total Protein Vancomycin Trough Rheumatoid Factor Complement C4 Miscellaneous Test Crossmatch 02/01/17 02/01/17 02/02/17 09:24 12:15 07:40 WBC RBC Hgb Hct MCV MCH MCHC RDW Plt Count Lymph % (Auto) [place] % (Auto) Lymph # [place] # Baso # Seg Neutrophils % Seg Neuts % (Manual) Lymphocytes % (Manual) Monocytes % (Manual) Eosinophils % (Manual) Basophils % (Manual) Nucleated RBC % Seg Neutrophils # Seg Neutrophils # Man Lymphocytes # (Manual) Monocytes # (Manual) Eosinophils # (Manual) Basophils # (Manual) PT INR Fibrinogen dRVVT Confirm Interp Factor V Activity POC ABG pH POC ABG pCO2 POC ABG pO2 ABG pO2 ABG HCO3 ABG Base Excess ABG Hemoglobin Oxyhemoglobin Sodium Potassium Chloride Carbon Dioxide BUN 102 H 72 H Creatinine 1.9 H 1.5 H Glucose 120 H POC Glucose 156 H Lactic Acid Calcium Ionized Calcium Phosphorus Magnesium Direct Bilirubin AST ALT Alkaline Phosphatase Lactate Dehydrogenase Troponin T C-Reactive Protein Total Protein Albumin Prealbumin Triglycerides Cholesterol LDL Cholesterol Direct HDL Cholesterol 25-OH Vitamin D Total PTH Intact Urine pH Urine WBC (Auto) Urine Creatinine Urine Total Protein Fluid Total Protein Vancomycin Trough Rheumatoid Factor Complement C4 Miscellaneous Test Crossmatch 02/02/17 02/02/17 02/03/17 10:16 12:11 00:08 WBC 12.0 H RBC 3.08 L Hgb 8.3 L Hct 25.6 L MCV MCH 27 L MCHC RDW 18.2 H Plt Count Lymph % (Auto) [place] % (Auto) Lymph # [place] # Baso # Seg Neutrophils % 78.4 H Seg Neuts % (Manual) Lymphocytes % (Manual) Monocytes % (Manual) Eosinophils % (Manual) Basophils % (Manual) Nucleated RBC % Seg Neutrophils # 9.4 H Seg Neutrophils # Man Lymphocytes # (Manual) Monocytes # (Manual) Eosinophils # (Manual) Basophils # (Manual) PT INR Fibrinogen dRVVT Confirm Interp Factor V Activity POC ABG pH POC ABG pCO2 POC ABG pO2 ABG pO2 ABG HCO3 ABG Base Excess ABG Hemoglobin Oxyhemoglobin Sodium Potassium Chloride Carbon Dioxide BUN Creatinine Glucose POC Glucose 110 H 120 H Lactic Acid Calcium Ionized Calcium Phosphorus Magnesium Direct Bilirubin AST ALT Alkaline Phosphatase Lactate Dehydrogenase Troponin T C-Reactive Protein Total Protein Albumin Prealbumin Triglycerides Cholesterol LDL Cholesterol Direct HDL Cholesterol 25-OH Vitamin D Total PTH Intact Urine pH Urine WBC (Auto) Urine Creatinine Urine Total Protein Fluid Total Protein Vancomycin Trough Rheumatoid Factor Complement C4 Miscellaneous Test Crossmatch 02/03/17 02/03/17 02/03/17 05:41 07:38 11:31 WBC RBC Hgb Hct MCV MCH MCHC RDW Plt Count Lymph % (Auto) [place] % (Auto) Lymph # [place] # Baso # Seg Neutrophils % Seg Neuts % (Manual) Lymphocytes % (Manual) Monocytes % (Manual) Eosinophils % (Manual) Basophils % (Manual) Nucleated RBC % Seg Neutrophils # Seg Neutrophils # Man Lymphocytes # (Manual) Monocytes # (Manual) Eosinophils # (Manual) Basophils # (Manual) PT INR Fibrinogen dRVVT Confirm Interp Factor V Activity POC ABG pH POC ABG pCO2 POC ABG pO2 ABG pO2 ABG HCO3 ABG Base Excess ABG Hemoglobin Oxyhemoglobin Sodium 134 L Potassium Chloride Carbon Dioxide 21 L BUN 91 H Creatinine 1.9 H Glucose 110 H POC Glucose 119 H 119 H Lactic Acid Calcium 10.3 H Ionized Calcium Phosphorus Magnesium Direct Bilirubin AST ALT Alkaline Phosphatase Lactate Dehydrogenase Troponin T C-Reactive Protein Total Protein Albumin Prealbumin Triglycerides Cholesterol LDL Cholesterol Direct HDL Cholesterol 25-OH Vitamin D Total PTH Intact Urine pH Urine WBC (Auto) Urine Creatinine Urine Total Protein Fluid Total Protein Vancomycin Trough Rheumatoid Factor Complement C4 Miscellaneous Test Crossmatch 02/03/17 02/04/17 02/04/17 17:13 04:00 05:18 WBC RBC Hgb Hct MCV MCH MCHC RDW Plt Count Lymph % (Auto) [place] % (Auto) Lymph # [place] # Baso # Seg Neutrophils % Seg Neuts % (Manual) Lymphocytes % (Manual) Monocytes % (Manual) Eosinophils % (Manual) Basophils % (Manual) Nucleated RBC % Seg Neutrophils # Seg Neutrophils # Man Lymphocytes # (Manual) Monocytes # (Manual) Eosinophils # (Manual) Basophils # (Manual) PT INR Fibrinogen dRVVT Confirm Interp Factor V Activity POC ABG pH POC ABG pCO2 POC ABG pO2 ABG pO2 ABG HCO3 ABG Base Excess ABG Hemoglobin Oxyhemoglobin Sodium 136 L Potassium Chloride Carbon Dioxide BUN 58 H Creatinine 1.3 H Glucose 103 H POC Glucose 133 H 132 H Lactic Acid Calcium Ionized Calcium Phosphorus 2.00 L D Magnesium 1.60 L Direct Bilirubin AST ALT Alkaline Phosphatase Lactate Dehydrogenase Troponin T C-Reactive Protein Total Protein Albumin Prealbumin Triglycerides Cholesterol LDL Cholesterol Direct HDL Cholesterol 25-OH Vitamin D Total PTH Intact Urine pH Urine WBC (Auto) Urine Creatinine Urine Total Protein Fluid Total Protein Vancomycin Trough Rheumatoid Factor Complement C4 Miscellaneous Test Crossmatch 02/05/17 02/05/17 02/05/17 00:01 04:00 06:42 WBC RBC Hgb Hct MCV MCH MCHC RDW Plt Count Lymph % (Auto) [place] % (Auto) Lymph # [place] # Baso # Seg Neutrophils % Seg Neuts % (Manual) Lymphocytes % (Manual) Monocytes % (Manual) Eosinophils % (Manual) Basophils % (Manual) Nucleated RBC % Seg Neutrophils # Seg Neutrophils # Man Lymphocytes # (Manual) Monocytes # (Manual) Eosinophils # (Manual) Basophils # (Manual) PT INR Fibrinogen dRVVT Confirm Interp Factor V Activity POC ABG pH POC ABG pCO2 POC ABG pO2 ABG pO2 ABG HCO3 ABG Base Excess ABG Hemoglobin Oxyhemoglobin Sodium Potassium Chloride Carbon Dioxide BUN 83 H Creatinine 1.8 H Glucose POC Glucose 119 H 110 H Lactic Acid Calcium 10.7 H Ionized Calcium Phosphorus Magnesium Direct Bilirubin AST ALT Alkaline Phosphatase Lactate Dehydrogenase Troponin T C-Reactive Protein Total Protein Albumin Prealbumin Triglycerides Cholesterol LDL Cholesterol Direct HDL Cholesterol 25-OH Vitamin D Total PTH Intact Urine pH Urine WBC (Auto) Urine Creatinine Urine Total Protein Fluid Total Protein Vancomycin Trough Rheumatoid Factor Complement C4 Miscellaneous Test Crossmatch 02/05/17 02/05/17 02/05/17 09:59 11:47 23:44 WBC RBC 2.69 L Hgb 7.2 L Hct 22.5 L MCV MCH 27 L MCHC RDW 18.6 H Plt Count Lymph % (Auto) [place] % (Auto) 9.2 H Lymph # [place] # 0.9 H Baso # Seg Neutrophils % Seg Neuts % (Manual) Lymphocytes % (Manual) Monocytes % (Manual) Eosinophils % (Manual) Basophils % (Manual) Nucleated RBC % Seg Neutrophils # Seg Neutrophils # Man Lymphocytes # (Manual) Monocytes # (Manual) Eosinophils # (Manual) Basophils # (Manual) PT INR Fibrinogen dRVVT Confirm Interp Factor V Activity POC ABG pH POC ABG pCO2 POC ABG pO2 ABG pO2 ABG HCO3 ABG Base Excess ABG Hemoglobin Oxyhemoglobin Sodium Potassium Chloride Carbon Dioxide BUN Creatinine Glucose POC Glucose 130 H 123 H Lactic Acid Calcium Ionized Calcium Phosphorus Magnesium Direct Bilirubin AST ALT Alkaline Phosphatase Lactate Dehydrogenase Troponin T C-Reactive Protein Total Protein Albumin Prealbumin Triglycerides Cholesterol LDL Cholesterol Direct HDL Cholesterol 25-OH Vitamin D Total PTH Intact Urine pH Urine WBC (Auto) Urine Creatinine Urine Total Protein Fluid Total Protein Vancomycin Trough Rheumatoid Factor Complement C4 Miscellaneous Test Crossmatch 02/06/17 02/06/17 02/06/17 04:45 05:58 12:01 WBC RBC Hgb Hct MCV MCH MCHC RDW Plt Count Lymph % (Auto) [place] % (Auto) Lymph # [place] # Baso # Seg Neutrophils % Seg Neuts % (Manual) Lymphocytes % (Manual) Monocytes % (Manual) Eosinophils % (Manual) Basophils % (Manual) Nucleated RBC % Seg Neutrophils # Seg Neutrophils # Man Lymphocytes # (Manual) Monocytes # (Manual) Eosinophils # (Manual) Basophils # (Manual) PT INR Fibrinogen dRVVT Confirm Interp Factor V Activity POC ABG pH POC ABG pCO2 POC ABG pO2 ABG pO2 ABG HCO3 ABG Base Excess ABG Hemoglobin Oxyhemoglobin Sodium Potassium Chloride Carbon Dioxide BUN 101 H Creatinine 2.0 H Glucose 102 H POC Glucose 115 H 132 H Lactic Acid Calcium 10.6 H Ionized Calcium Phosphorus Magnesium Direct Bilirubin AST ALT Alkaline Phosphatase 199 H Lactate Dehydrogenase Troponin T C-Reactive Protein Total Protein Albumin 1.4 L Prealbumin Triglycerides Cholesterol LDL Cholesterol Direct HDL Cholesterol 25-OH Vitamin D Total PTH Intact Urine pH Urine WBC (Auto) Urine Creatinine Urine Total Protein Fluid Total Protein Vancomycin Trough Rheumatoid Factor Complement C4 Miscellaneous Test Crossmatch 02/06/17 02/06/17 02/07/17 17:41 23:32 05:04 WBC RBC Hgb Hct MCV MCH MCHC RDW Plt Count Lymph % (Auto) [place] % (Auto) Lymph # [place] # Baso # Seg Neutrophils % Seg Neuts % (Manual) Lymphocytes % (Manual) Monocytes % (Manual) Eosinophils % (Manual) Basophils % (Manual) Nucleated RBC % Seg Neutrophils # Seg Neutrophils # Man Lymphocytes # (Manual) Monocytes # (Manual) Eosinophils # (Manual) Basophils # (Manual) PT INR Fibrinogen dRVVT Confirm Interp Factor V Activity POC ABG pH POC ABG pCO2 POC ABG pO2 ABG pO2 ABG HCO3 ABG Base Excess ABG Hemoglobin Oxyhemoglobin Sodium Potassium Chloride Carbon Dioxide BUN Creatinine Glucose POC Glucose 134 H 128 H 119 H Lactic Acid Calcium Ionized Calcium Phosphorus Magnesium Direct Bilirubin AST ALT Alkaline Phosphatase Lactate Dehydrogenase Troponin T C-Reactive Protein Total Protein Albumin Prealbumin Triglycerides Cholesterol LDL Cholesterol Direct HDL Cholesterol 25-OH Vitamin D Total PTH Intact Urine pH Urine WBC (Auto) Urine Creatinine Urine Total Protein Fluid Total Protein Vancomycin Trough Rheumatoid Factor Complement C4 Miscellaneous Test Crossmatch 02/07/17 02/07/17 02/07/17 06:30 11:20 17:13 WBC RBC Hgb Hct MCV MCH MCHC RDW Plt Count Lymph % (Auto) [place] % (Auto) Lymph # [place] # Baso # Seg Neutrophils % Seg Neuts % (Manual) Lymphocytes % (Manual) Monocytes % (Manual) Eosinophils % (Manual) Basophils % (Manual) Nucleated RBC % Seg Neutrophils # Seg Neutrophils # Man Lymphocytes # (Manual) Monocytes # (Manual) Eosinophils # (Manual) Basophils # (Manual) PT INR Fibrinogen dRVVT Confirm Interp Factor V Activity POC ABG pH POC ABG pCO2 POC ABG pO2 ABG pO2 ABG HCO3 ABG Base Excess ABG Hemoglobin Oxyhemoglobin Sodium Potassium 3.4 L Chloride Carbon Dioxide BUN 69 H Creatinine 1.5 H Glucose 105 H POC Glucose 117 H 110 H Lactic Acid Calcium Ionized Calcium Phosphorus Magnesium 1.50 L Direct Bilirubin AST ALT Alkaline Phosphatase Lactate Dehydrogenase Troponin T C-Reactive Protein Total Protein Albumin Prealbumin Triglycerides Cholesterol LDL Cholesterol Direct HDL Cholesterol 25-OH Vitamin D Total PTH Intact Urine pH Urine WBC (Auto) Urine Creatinine Urine Total Protein Fluid Total Protein Vancomycin Trough Rheumatoid Factor Complement C4 Miscellaneous Test Crossmatch 02/07/17 02/08/17 02/08/17 20:47 04:00 11:43 WBC RBC Hgb Hct MCV MCH MCHC RDW Plt Count Lymph % (Auto) [place] % (Auto) Lymph # [place] # Baso # Seg Neutrophils % Seg Neuts % (Manual) Lymphocytes % (Manual) Monocytes % (Manual) Eosinophils % (Manual) Basophils % (Manual) Nucleated RBC % Seg Neutrophils # Seg Neutrophils # Man Lymphocytes # (Manual) Monocytes # (Manual) Eosinophils # (Manual) Basophils # (Manual) PT INR Fibrinogen dRVVT Confirm Interp Factor V Activity POC ABG pH POC ABG pCO2 POC ABG pO2 ABG pO2 ABG HCO3 ABG Base Excess ABG Hemoglobin Oxyhemoglobin Sodium Potassium Chloride Carbon Dioxide BUN 86 H Creatinine 1.7 H Glucose POC Glucose 115 H 122 H Lactic Acid Calcium Ionized Calcium Phosphorus Magnesium 1.60 L Direct Bilirubin AST ALT Alkaline Phosphatase Lactate Dehydrogenase Troponin T C-Reactive Protein Total Protein Albumin Prealbumin Triglycerides Cholesterol LDL Cholesterol Direct HDL Cholesterol 25-OH Vitamin D Total PTH Intact Urine pH Urine WBC (Auto) Urine Creatinine Urine Total Protein Fluid Total Protein Vancomycin Trough Rheumatoid Factor Complement C4 Miscellaneous Test Crossmatch 02/08/17 02/09/17 02/09/17 17:36 05:44 11:30 WBC RBC Hgb Hct MCV MCH MCHC RDW Plt Count Lymph % (Auto) [place] % (Auto) Lymph # [place] # Baso # Seg Neutrophils % Seg Neuts % (Manual) Lymphocytes % (Manual) Monocytes % (Manual) Eosinophils % (Manual) Basophils % (Manual) Nucleated RBC % Seg Neutrophils # Seg Neutrophils # Man Lymphocytes # (Manual) Monocytes # (Manual) Eosinophils # (Manual) Basophils # (Manual) PT INR Fibrinogen dRVVT Confirm Interp Factor V Activity POC ABG pH POC ABG pCO2 POC ABG pO2 ABG pO2 ABG HCO3 ABG Base Excess ABG Hemoglobin Oxyhemoglobin Sodium Potassium Chloride Carbon Dioxide BUN Creatinine Glucose POC Glucose 125 H 117 H 120 H Lactic Acid Calcium Ionized Calcium Phosphorus Magnesium Direct Bilirubin AST ALT Alkaline Phosphatase Lactate Dehydrogenase Troponin T C-Reactive Protein Total Protein Albumin Prealbumin Triglycerides Cholesterol LDL Cholesterol Direct HDL Cholesterol 25-OH Vitamin D Total PTH Intact Urine pH Urine WBC (Auto) Urine Creatinine Urine Total Protein Fluid Total Protein Vancomycin Trough Rheumatoid Factor Complement C4 Miscellaneous Test Crossmatch 02/09/17 02/10/17 02/10/17 23:45 05:45 05:50 WBC RBC Hgb Hct MCV MCH MCHC RDW Plt Count Lymph % (Auto) [place] % (Auto) Lymph # [place] # Baso # Seg Neutrophils % Seg Neuts % (Manual) Lymphocytes % (Manual) Monocytes % (Manual) Eosinophils % (Manual) Basophils % (Manual) Nucleated RBC % Seg Neutrophils # Seg Neutrophils # Man Lymphocytes # (Manual) Monocytes # (Manual) Eosinophils # (Manual) Basophils # (Manual) PT INR Fibrinogen dRVVT Confirm Interp Factor V Activity POC ABG pH POC ABG pCO2 POC ABG pO2 ABG pO2 ABG HCO3 ABG Base Excess ABG Hemoglobin Oxyhemoglobin Sodium Potassium Chloride Carbon Dioxide BUN 85 H Creatinine 1.8 H Glucose 109 H POC Glucose 114 H 189 H Lactic Acid Calcium Ionized Calcium Phosphorus Magnesium 2.50 H Direct Bilirubin AST ALT Alkaline Phosphatase Lactate Dehydrogenase Troponin T C-Reactive Protein Total Protein Albumin Prealbumin Triglycerides Cholesterol LDL Cholesterol Direct HDL Cholesterol 25-OH Vitamin D Total PTH Intact Urine pH Urine WBC (Auto) Urine Creatinine Urine Total Protein Fluid Total Protein Vancomycin Trough Rheumatoid Factor Complement C4 Miscellaneous Test Crossmatch 02/10/17 02/10/17 02/10/17 05:51 11:55 17:42 WBC RBC Hgb Hct MCV MCH MCHC RDW Plt Count Lymph % (Auto) [place] % (Auto) Lymph # [place] # Baso # Seg Neutrophils % Seg Neuts % (Manual) Lymphocytes % (Manual) Monocytes % (Manual) Eosinophils % (Manual) Basophils % (Manual) Nucleated RBC % Seg Neutrophils # Seg Neutrophils # Man Lymphocytes # (Manual) Monocytes # (Manual) Eosinophils # (Manual) Basophils # (Manual) PT INR Fibrinogen dRVVT Confirm Interp Factor V Activity POC ABG pH POC ABG pCO2 POC ABG pO2 ABG pO2 ABG HCO3 ABG Base Excess ABG Hemoglobin Oxyhemoglobin Sodium Potassium Chloride Carbon Dioxide BUN Creatinine Glucose POC Glucose 106 H 146 H 132 H Lactic Acid Calcium Ionized Calcium Phosphorus Magnesium Direct Bilirubin AST ALT Alkaline Phosphatase Lactate Dehydrogenase Troponin T C-Reactive Protein Total Protein Albumin Prealbumin Triglycerides Cholesterol LDL Cholesterol Direct HDL Cholesterol 25-OH Vitamin D Total PTH Intact Urine pH Urine WBC (Auto) Urine Creatinine Urine Total Protein Fluid Total Protein Vancomycin Trough Rheumatoid Factor Complement C4 Miscellaneous Test Crossmatch 02/10/17 02/11/17 02/11/17 23:43 04:08 05:34 WBC RBC Hgb Hct MCV MCH MCHC RDW Plt Count Lymph % (Auto) [place] % (Auto) Lymph # [place] # Baso # Seg Neutrophils % Seg Neuts % (Manual) Lymphocytes % (Manual) Monocytes % (Manual) Eosinophils % (Manual) Basophils % (Manual) Nucleated RBC % Seg Neutrophils # Seg Neutrophils # Man Lymphocytes # (Manual) Monocytes # (Manual) Eosinophils # (Manual) Basophils # (Manual) PT INR Fibrinogen dRVVT Confirm Interp Factor V Activity POC ABG pH POC ABG pCO2 POC ABG pO2 ABG pO2 ABG HCO3 ABG Base Excess ABG Hemoglobin Oxyhemoglobin Sodium 136 L Potassium Chloride Carbon Dioxide BUN 65 H Creatinine 1.7 H Glucose 105 H POC Glucose 130 H 113 H Lactic Acid Calcium Ionized Calcium Phosphorus Magnesium Direct Bilirubin AST ALT Alkaline Phosphatase Lactate Dehydrogenase Troponin T C-Reactive Protein Total Protein Albumin Prealbumin Triglycerides Cholesterol LDL Cholesterol Direct HDL Cholesterol 25-OH Vitamin D Total PTH Intact Urine pH Urine WBC (Auto) Urine Creatinine Urine Total Protein Fluid Total Protein Vancomycin Trough Rheumatoid Factor Complement C4 Miscellaneous Test Crossmatch 02/11/17 02/11/17 02/12/17 11:56 23:18 06:19 WBC RBC Hgb Hct MCV MCH MCHC RDW Plt Count Lymph % (Auto) [place] % (Auto) Lymph # [place] # Baso # Seg Neutrophils % Seg Neuts % (Manual) Lymphocytes % (Manual) Monocytes % (Manual) Eosinophils % (Manual) Basophils % (Manual) Nucleated RBC % Seg Neutrophils # Seg Neutrophils # Man Lymphocytes # (Manual) Monocytes # (Manual) Eosinophils # (Manual) Basophils # (Manual) PT INR Fibrinogen dRVVT Confirm Interp Factor V Activity POC ABG pH POC ABG pCO2 POC ABG pO2 ABG pO2 ABG HCO3 ABG Base Excess ABG Hemoglobin Oxyhemoglobin Sodium 136 L Potassium Chloride 97.1 L Carbon Dioxide BUN 93 H Creatinine 2.4 H Glucose POC Glucose 126 H 119 H Lactic Acid Calcium 11.0 H Ionized Calcium Phosphorus Magnesium Direct Bilirubin AST ALT Alkaline Phosphatase Lactate Dehydrogenase Troponin T C-Reactive Protein Total Protein Albumin Prealbumin Triglycerides Cholesterol LDL Cholesterol Direct HDL Cholesterol 25-OH Vitamin D Total PTH Intact Urine pH Urine WBC (Auto) Urine Creatinine Urine Total Protein Fluid Total Protein Vancomycin Trough Rheumatoid Factor Complement C4 Miscellaneous Test Crossmatch 02/12/17 02/12/17 02/12/17 08:00 10:25 11:42 WBC 15.4 H RBC 2.63 L Hgb 6.9 L Hct 22.6 L MCV MCH 26 L MCHC RDW 20.5 H Plt Count Lymph % (Auto) [place] % (Auto) Lymph # [place] # Baso # Seg Neutrophils % Seg Neuts % (Manual) Lymphocytes % (Manual) Monocytes % (Manual) Eosinophils % (Manual) Basophils % (Manual) Nucleated RBC % Seg Neutrophils # Seg Neutrophils # Man Lymphocytes # (Manual) Monocytes # (Manual) Eosinophils # (Manual) Basophils # (Manual) PT INR Fibrinogen dRVVT Confirm Interp Factor V Activity POC ABG pH POC ABG pCO2 POC ABG pO2 ABG pO2 ABG HCO3 ABG Base Excess ABG Hemoglobin Oxyhemoglobin Sodium Potassium Chloride Carbon Dioxide BUN Creatinine Glucose POC Glucose 142 H Lactic Acid Calcium Ionized Calcium Phosphorus Magnesium Direct Bilirubin AST ALT Alkaline Phosphatase Lactate Dehydrogenase Troponin T C-Reactive Protein Total Protein Albumin Prealbumin Triglycerides Cholesterol LDL Cholesterol Direct HDL Cholesterol 25-OH Vitamin D Total PTH Intact Urine pH Urine WBC (Auto) Urine Creatinine Urine Total Protein Fluid Total Protein Vancomycin Trough Rheumatoid Factor Complement C4 Miscellaneous Test Crossmatch See Detail 02/12/17 02/13/17 02/13/17 18:04 00:04 05:00 WBC RBC Hgb Hct MCV MCH MCHC RDW Plt Count Lymph % (Auto) [place] % (Auto) Lymph # [place] # Baso # Seg Neutrophils % Seg Neuts % (Manual) Lymphocytes % (Manual) Monocytes % (Manual) Eosinophils % (Manual) Basophils % (Manual) Nucleated RBC % Seg Neutrophils # Seg Neutrophils # Man Lymphocytes # (Manual) Monocytes # (Manual) Eosinophils # (Manual) Basophils # (Manual) PT INR Fibrinogen dRVVT Confirm Interp Factor V Activity POC ABG pH POC ABG pCO2 POC ABG pO2 ABG pO2 ABG HCO3 ABG Base Excess ABG Hemoglobin Oxyhemoglobin Sodium 134 L Potassium Chloride 96.1 L Carbon Dioxide 20 L BUN 125 H Creatinine 3.0 H Glucose 111 H POC Glucose 135 H 109 H Lactic Acid Calcium 11.3 H Ionized Calcium Phosphorus Magnesium Direct Bilirubin AST ALT Alkaline Phosphatase Lactate Dehydrogenase Troponin T C-Reactive Protein Total Protein Albumin Prealbumin Triglycerides Cholesterol LDL Cholesterol Direct HDL Cholesterol 25-OH Vitamin D Total PTH Intact Urine pH Urine WBC (Auto) Urine Creatinine Urine Total Protein Fluid Total Protein Vancomycin Trough Rheumatoid Factor Complement C4 Miscellaneous Test Crossmatch 02/13/17 02/13/17 02/13/17 05:00 05:28 12:03 WBC 11.9 H RBC 2.92 L Hgb 7.8 L Hct 25.2 L MCV MCH 27 L MCHC RDW 19.3 H Plt Count Lymph % (Auto) [place] % (Auto) Lymph # [place] # Baso # Seg Neutrophils % Seg Neuts % (Manual) Lymphocytes % (Manual) Monocytes % (Manual) Eosinophils % (Manual) Basophils % (Manual) Nucleated RBC % Seg Neutrophils # Seg Neutrophils # Man Lymphocytes # (Manual) Monocytes # (Manual) Eosinophils # (Manual) Basophils # (Manual) PT INR Fibrinogen dRVVT Confirm Interp Factor V Activity POC ABG pH POC ABG pCO2 POC ABG pO2 ABG pO2 ABG HCO3 ABG Base Excess ABG Hemoglobin Oxyhemoglobin Sodium Potassium Chloride Carbon Dioxide BUN Creatinine Glucose POC Glucose 124 H 160 H Lactic Acid Calcium Ionized Calcium Phosphorus Magnesium Direct Bilirubin AST ALT Alkaline Phosphatase Lactate Dehydrogenase Troponin T C-Reactive Protein Total Protein Albumin Prealbumin Triglycerides Cholesterol LDL Cholesterol Direct HDL Cholesterol 25-OH Vitamin D Total PTH Intact Urine pH Urine WBC (Auto) Urine Creatinine Urine Total Protein Fluid Total Protein Vancomycin Trough Rheumatoid Factor Complement C4 Miscellaneous Test Crossmatch 02/13/17 02/14/17 02/14/17 18:09 06:16 08:08 WBC 15.2 H RBC 2.97 L Hgb 8.1 L Hct 26.3 L MCV MCH MCHC RDW 19.3 H Plt Count Lymph % (Auto) [place] % (Auto) Lymph # [place] # Baso # Seg Neutrophils % Seg Neuts % (Manual) Lymphocytes % (Manual) Monocytes % (Manual) Eosinophils % (Manual) Basophils % (Manual) Nucleated RBC % Seg Neutrophils # Seg Neutrophils # Man Lymphocytes # (Manual) Monocytes # (Manual) Eosinophils # (Manual) Basophils # (Manual) PT INR Fibrinogen dRVVT Confirm Interp Factor V Activity POC ABG pH POC ABG pCO2 POC ABG pO2 ABG pO2 ABG HCO3 ABG Base Excess ABG Hemoglobin Oxyhemoglobin Sodium Potassium Chloride Carbon Dioxide BUN Creatinine Glucose POC Glucose 110 H 112 H Lactic Acid Calcium Ionized Calcium Phosphorus Magnesium Direct Bilirubin AST ALT Alkaline Phosphatase Lactate Dehydrogenase Troponin T C-Reactive Protein Total Protein Albumin Prealbumin Triglycerides Cholesterol LDL Cholesterol Direct HDL Cholesterol 25-OH Vitamin D Total PTH Intact Urine pH Urine WBC (Auto) Urine Creatinine Urine Total Protein Fluid Total Protein Vancomycin Trough Rheumatoid Factor Complement C4 Miscellaneous Test Crossmatch 02/14/17 02/14/17 02/15/17 08:08 17:41 04:15 WBC RBC Hgb Hct MCV MCH MCHC RDW Plt Count Lymph % (Auto) [place] % (Auto) Lymph # [place] # Baso # Seg Neutrophils % Seg Neuts % (Manual) Lymphocytes % (Manual) Monocytes % (Manual) Eosinophils % (Manual) Basophils % (Manual) Nucleated RBC % Seg Neutrophils # Seg Neutrophils # Man Lymphocytes # (Manual) Monocytes # (Manual) Eosinophils # (Manual) Basophils # (Manual) PT INR Fibrinogen dRVVT Confirm Interp Factor V Activity POC ABG pH POC ABG pCO2 POC ABG pO2 ABG pO2 ABG HCO3 ABG Base Excess ABG Hemoglobin Oxyhemoglobin Sodium Potassium Chloride Carbon Dioxide 18 L 21 L BUN 79 H 113 H Creatinine 2.1 H 2.8 H Glucose POC Glucose 118 H Lactic Acid Calcium 10.7 H Ionized Calcium Phosphorus 1.70 L D Magnesium 1.60 L Direct Bilirubin AST ALT Alkaline Phosphatase Lactate Dehydrogenase Troponin T C-Reactive Protein Total Protein Albumin Prealbumin Triglycerides Cholesterol LDL Cholesterol Direct HDL Cholesterol 25-OH Vitamin D Total PTH Intact Urine pH Urine WBC (Auto) Urine Creatinine Urine Total Protein Fluid Total Protein Vancomycin Trough Rheumatoid Factor Complement C4 Miscellaneous Test Crossmatch 02/15/17 02/15/17 02/15/17 06:06 11:31 17:52 WBC RBC Hgb Hct MCV MCH MCHC RDW Plt Count Lymph % (Auto) [place] % (Auto) Lymph # [place] # Baso # Seg Neutrophils % Seg Neuts % (Manual) Lymphocytes % (Manual) Monocytes % (Manual) Eosinophils % (Manual) Basophils % (Manual) Nucleated RBC % Seg Neutrophils # Seg Neutrophils # Man Lymphocytes # (Manual) Monocytes # (Manual) Eosinophils # (Manual) Basophils # (Manual) PT INR Fibrinogen dRVVT Confirm Interp Factor V Activity POC ABG pH POC ABG pCO2 POC ABG pO2 ABG pO2 ABG HCO3 ABG Base Excess ABG Hemoglobin Oxyhemoglobin Sodium Potassium Chloride Carbon Dioxide BUN Creatinine Glucose POC Glucose 115 H 129 H 201 H Lactic Acid Calcium Ionized Calcium Phosphorus Magnesium Direct Bilirubin AST ALT Alkaline Phosphatase Lactate Dehydrogenase Troponin T C-Reactive Protein Total Protein Albumin Prealbumin Triglycerides Cholesterol LDL Cholesterol Direct HDL Cholesterol 25-OH Vitamin D Total PTH Intact Urine pH Urine WBC (Auto) Urine Creatinine Urine Total Protein Fluid Total Protein Vancomycin Trough Rheumatoid Factor Complement C4 Miscellaneous Test Crossmatch 02/15/17 02/15/17 02/15/17 19:08 19:08 19:08 WBC RBC Hgb Hct MCV MCH MCHC RDW Plt Count Lymph % (Auto) [place] % (Auto) Lymph # [place] # Baso # Seg Neutrophils % Seg Neuts % (Manual) Lymphocytes % (Manual) Monocytes % (Manual) Eosinophils % (Manual) Basophils % (Manual) Nucleated RBC % Seg Neutrophils # Seg Neutrophils # Man Lymphocytes # (Manual) Monocytes # (Manual) Eosinophils # (Manual) Basophils # (Manual) PT INR Fibrinogen dRVVT Confirm Interp Factor V Activity POC ABG pH POC ABG pCO2 POC ABG pO2 ABG pO2 ABG HCO3 ABG Base Excess ABG Hemoglobin Oxyhemoglobin Sodium Potassium Chloride Carbon Dioxide BUN Creatinine Glucose POC Glucose Lactic Acid Calcium Ionized Calcium 6.0 H Phosphorus Magnesium Direct Bilirubin AST ALT Alkaline Phosphatase Lactate Dehydrogenase Troponin T C-Reactive Protein Total Protein Albumin Prealbumin Triglycerides Cholesterol LDL Cholesterol Direct HDL Cholesterol 25-OH Vitamin D Total 13 L PTH Intact 10.88 L Urine pH Urine WBC (Auto) Urine Creatinine Urine Total Protein Fluid Total Protein Vancomycin Trough Rheumatoid Factor Complement C4 Miscellaneous Test Crossmatch 02/16/17 02/16/17 02/16/17 05:12 06:00 12:39 WBC RBC Hgb Hct MCV MCH MCHC RDW Plt Count Lymph % (Auto) [place] % (Auto) Lymph # [place] # Baso # Seg Neutrophils % Seg Neuts % (Manual) Lymphocytes % (Manual) Monocytes % (Manual) Eosinophils % (Manual) Basophils % (Manual) Nucleated RBC % Seg Neutrophils # Seg Neutrophils # Man Lymphocytes # (Manual) Monocytes # (Manual) Eosinophils # (Manual) Basophils # (Manual) PT INR Fibrinogen dRVVT Confirm Interp Factor V Activity POC ABG pH POC ABG pCO2 POC ABG pO2 ABG pO2 ABG HCO3 ABG Base Excess ABG Hemoglobin Oxyhemoglobin Sodium Potassium Chloride Carbon Dioxide BUN 74 H Creatinine 1.7 H Glucose 102 H POC Glucose 125 H 109 H Lactic Acid Calcium Ionized Calcium Phosphorus 2.10 L D Magnesium Direct Bilirubin AST ALT Alkaline Phosphatase Lactate Dehydrogenase Troponin T C-Reactive Protein Total Protein Albumin Prealbumin Triglycerides Cholesterol LDL Cholesterol Direct HDL Cholesterol 25-OH Vitamin D Total PTH Intact Urine pH Urine WBC (Auto) Urine Creatinine Urine Total Protein Fluid Total Protein Vancomycin Trough Rheumatoid Factor Complement C4 Miscellaneous Test Crossmatch 02/16/17 02/16/17 02/17/17 17:31 23:57 05:30 WBC RBC Hgb Hct MCV MCH MCHC RDW Plt Count Lymph % (Auto) [place] % (Auto) Lymph # [place] # Baso # Seg Neutrophils % Seg Neuts % (Manual) Lymphocytes % (Manual) Monocytes % (Manual) Eosinophils % (Manual) Basophils % (Manual) Nucleated RBC % Seg Neutrophils # Seg Neutrophils # Man Lymphocytes # (Manual) Monocytes # (Manual) Eosinophils # (Manual) Basophils # (Manual) PT INR Fibrinogen dRVVT Confirm Interp Factor V Activity POC ABG pH POC ABG pCO2 POC ABG pO2 ABG pO2 ABG HCO3 ABG Base Excess ABG Hemoglobin Oxyhemoglobin Sodium Potassium Chloride Carbon Dioxide BUN Creatinine Glucose POC Glucose 106 H 127 H 122 H Lactic Acid Calcium Ionized Calcium Phosphorus Magnesium Direct Bilirubin AST ALT Alkaline Phosphatase Lactate Dehydrogenase Troponin T C-Reactive Protein Total Protein Albumin Prealbumin Triglycerides Cholesterol LDL Cholesterol Direct HDL Cholesterol 25-OH Vitamin D Total PTH Intact Urine pH Urine WBC (Auto) Urine Creatinine Urine Total Protein Fluid Total Protein Vancomycin Trough Rheumatoid Factor Complement C4 Miscellaneous Test Crossmatch 02/17/17 02/17/17 02/17/17 06:00 12:17 17:57 WBC RBC Hgb Hct MCV MCH MCHC RDW Plt Count Lymph % (Auto) [place] % (Auto) Lymph # [place] # Baso # Seg Neutrophils % Seg Neuts % (Manual) Lymphocytes % (Manual) Monocytes % (Manual) Eosinophils % (Manual) Basophils % (Manual) Nucleated RBC % Seg Neutrophils # Seg Neutrophils # Man Lymphocytes # (Manual) Monocytes # (Manual) Eosinophils # (Manual) Basophils # (Manual) PT INR Fibrinogen dRVVT Confirm Interp Factor V Activity POC ABG pH POC ABG pCO2 POC ABG pO2 ABG pO2 ABG HCO3 ABG Base Excess ABG Hemoglobin Oxyhemoglobin Sodium Potassium Chloride Carbon Dioxide BUN 94 H Creatinine 2.3 H Glucose 106 H POC Glucose 173 H 140 H Lactic Acid Calcium Ionized Calcium Phosphorus Magnesium Direct Bilirubin AST ALT Alkaline Phosphatase Lactate Dehydrogenase Troponin T C-Reactive Protein Total Protein Albumin Prealbumin Triglycerides Cholesterol LDL Cholesterol Direct HDL Cholesterol 25-OH Vitamin D Total PTH Intact Urine pH Urine WBC (Auto) Urine Creatinine Urine Total Protein Fluid Total Protein Vancomycin Trough Rheumatoid Factor Complement C4 Miscellaneous Test Crossmatch 02/18/17 02/18/17 02/18/17 00:20 05:30 06:14 WBC RBC Hgb Hct MCV MCH MCHC RDW Plt Count Lymph % (Auto) [place] % (Auto) Lymph # [place] # Baso # Seg Neutrophils % Seg Neuts % (Manual) Lymphocytes % (Manual) Monocytes % (Manual) Eosinophils % (Manual) Basophils % (Manual) Nucleated RBC % Seg Neutrophils # Seg Neutrophils # Man Lymphocytes # (Manual) Monocytes # (Manual) Eosinophils # (Manual) Basophils # (Manual) PT INR Fibrinogen dRVVT Confirm Interp Factor V Activity POC ABG pH POC ABG pCO2 POC ABG pO2 ABG pO2 ABG HCO3 ABG Base Excess ABG Hemoglobin Oxyhemoglobin Sodium 136 L Potassium Chloride 97.5 L Carbon Dioxide BUN 73 H Creatinine 1.9 H Glucose POC Glucose 132 H 106 H Lactic Acid Calcium Ionized Calcium Phosphorus Magnesium Direct Bilirubin AST ALT Alkaline Phosphatase Lactate Dehydrogenase Troponin T C-Reactive Protein Total Protein Albumin Prealbumin Triglycerides Cholesterol LDL Cholesterol Direct HDL Cholesterol 25-OH Vitamin D Total PTH Intact Urine pH Urine WBC (Auto) Urine Creatinine Urine Total Protein Fluid Total Protein Vancomycin Trough Rheumatoid Factor Complement C4 Miscellaneous Test Crossmatch 02/18/17 02/18/17 02/18/17 09:51 11:32 17:59 WBC 13.1 H RBC 2.77 L Hgb 7.6 L Hct 23.9 L MCV MCH MCHC RDW 19.0 H Plt Count Lymph % (Auto) [place] % (Auto) 11.1 H Lymph # [place] # 1.5 H Baso # Seg Neutrophils % Seg Neuts % (Manual) Lymphocytes % (Manual) Monocytes % (Manual) Eosinophils % (Manual) Basophils % (Manual) Nucleated RBC % Seg Neutrophils # 9.1 H Seg Neutrophils # Man Lymphocytes # (Manual) Monocytes # (Manual) Eosinophils # (Manual) Basophils # (Manual) PT INR Fibrinogen dRVVT Confirm Interp Factor V Activity POC ABG pH POC ABG pCO2 POC ABG pO2 ABG pO2 ABG HCO3 ABG Base Excess ABG Hemoglobin Oxyhemoglobin Sodium Potassium Chloride Carbon Dioxide BUN Creatinine Glucose POC Glucose 123 H 119 H Lactic Acid Calcium Ionized Calcium Phosphorus Magnesium Direct Bilirubin AST ALT Alkaline Phosphatase Lactate Dehydrogenase Troponin T C-Reactive Protein Total Protein Albumin Prealbumin Triglycerides Cholesterol LDL Cholesterol Direct HDL Cholesterol 25-OH Vitamin D Total PTH Intact Urine pH Urine WBC (Auto) Urine Creatinine Urine Total Protein Fluid Total Protein Vancomycin Trough Rheumatoid Factor Complement C4 Miscellaneous Test Crossmatch 02/18/17 02/19/17 02/19/17 23:47 05:36 09:45 WBC RBC Hgb Hct MCV MCH 27 L MCHC RDW 19.2 H Plt Count Lymph % (Auto) [place] % (Auto) Lymph # [place] # Baso # Seg Neutrophils % Seg Neuts % (Manual) Lymphocytes % (Manual) Monocytes % (Manual) Eosinophils % (Manual) Basophils % (Manual) Nucleated RBC % Seg Neutrophils # Seg Neutrophils # Man Lymphocytes # (Manual) Monocytes # (Manual) Eosinophils # (Manual) Basophils # (Manual) PT INR Fibrinogen dRVVT Confirm Interp Factor V Activity POC ABG pH POC ABG pCO2 POC ABG pO2 ABG pO2 ABG HCO3 ABG Base Excess ABG Hemoglobin Oxyhemoglobin Sodium Potassium Chloride Carbon Dioxide BUN Creatinine Glucose POC Glucose 110 H 121 H Lactic Acid Calcium Ionized Calcium Phosphorus Magnesium Direct Bilirubin AST ALT Alkaline Phosphatase Lactate Dehydrogenase Troponin T C-Reactive Protein Total Protein Albumin Prealbumin Triglycerides Cholesterol LDL Cholesterol Direct HDL Cholesterol 25-OH Vitamin D Total PTH Intact Urine pH Urine WBC (Auto) Urine Creatinine Urine Total Protein Fluid Total Protein Vancomycin Trough Rheumatoid Factor Complement C4 Miscellaneous Test Crossmatch 02/19/17 02/20/17 02/20/17 09:45 00:10 06:15 WBC RBC Hgb Hct MCV MCH MCHC RDW Plt Count Lymph % (Auto) [place] % (Auto) Lymph # [place] # Baso # Seg Neutrophils % Seg Neuts % (Manual) Lymphocytes % (Manual) Monocytes % (Manual) Eosinophils % (Manual) Basophils % (Manual) Nucleated RBC % Seg Neutrophils # Seg Neutrophils # Man Lymphocytes # (Manual) Monocytes # (Manual) Eosinophils # (Manual) Basophils # (Manual) PT INR Fibrinogen dRVVT Confirm Interp Factor V Activity POC ABG pH POC ABG pCO2 POC ABG pO2 ABG pO2 ABG HCO3 ABG Base Excess ABG Hemoglobin Oxyhemoglobin Sodium 136 L Potassium 5.1 H Chloride 97.6 L Carbon Dioxide 20 L 18 L BUN 110 H 135 H Creatinine 2.6 H 3.2 H Glucose 106 H 110 H POC Glucose 117 H Lactic Acid Calcium Ionized Calcium Phosphorus 4.70 H D 5.60 H Magnesium Direct Bilirubin AST ALT Alkaline Phosphatase Lactate Dehydrogenase Troponin T C-Reactive Protein Total Protein Albumin Prealbumin Triglycerides Cholesterol LDL Cholesterol Direct HDL Cholesterol 25-OH Vitamin D Total PTH Intact Urine pH Urine WBC (Auto) Urine Creatinine Urine Total Protein Fluid Total Protein Vancomycin Trough Rheumatoid Factor Complement C4 Miscellaneous Test Crossmatch 02/20/17 02/20/17 02/21/17 11:30 17:51 00:14 WBC RBC Hgb Hct MCV MCH MCHC RDW Plt Count Lymph % (Auto) [place] % (Auto) Lymph # [place] # Baso # Seg Neutrophils % Seg Neuts % (Manual) Lymphocytes % (Manual) Monocytes % (Manual) Eosinophils % (Manual) Basophils % (Manual) Nucleated RBC % Seg Neutrophils # Seg Neutrophils # Man Lymphocytes # (Manual) Monocytes # (Manual) Eosinophils # (Manual) Basophils # (Manual) PT INR Fibrinogen dRVVT Confirm Interp Factor V Activity POC ABG pH POC ABG pCO2 POC ABG pO2 ABG pO2 ABG HCO3 ABG Base Excess ABG Hemoglobin Oxyhemoglobin Sodium Potassium Chloride Carbon Dioxide BUN Creatinine Glucose POC Glucose 173 H 133 H 125 H Lactic Acid Calcium Ionized Calcium Phosphorus Magnesium Direct Bilirubin AST ALT Alkaline Phosphatase Lactate Dehydrogenase Troponin T C-Reactive Protein Total Protein Albumin Prealbumin Triglycerides Cholesterol LDL Cholesterol Direct HDL Cholesterol 25-OH Vitamin D Total PTH Intact Urine pH Urine WBC (Auto) Urine Creatinine Urine Total Protein Fluid Total Protein Vancomycin Trough Rheumatoid Factor Complement C4 Miscellaneous Test Crossmatch 02/21/17 02/21/17 02/21/17 04:09 05:03 11:58 WBC RBC Hgb Hct MCV MCH MCHC RDW Plt Count Lymph % (Auto) [place] % (Auto) Lymph # [place] # Baso # Seg Neutrophils % Seg Neuts % (Manual) Lymphocytes % (Manual) Monocytes % (Manual) Eosinophils % (Manual) Basophils % (Manual) Nucleated RBC % Seg Neutrophils # Seg Neutrophils # Man Lymphocytes # (Manual) Monocytes # (Manual) Eosinophils # (Manual) Basophils # (Manual) PT INR Fibrinogen dRVVT Confirm Interp Factor V Activity POC ABG pH POC ABG pCO2 POC ABG pO2 ABG pO2 ABG HCO3 ABG Base Excess ABG Hemoglobin Oxyhemoglobin Sodium 135 L Potassium Chloride Carbon Dioxide 20 L BUN 76 H Creatinine 2.0 H Glucose 125 H POC Glucose 134 H 139 H Lactic Acid Calcium Ionized Calcium Phosphorus Magnesium Direct Bilirubin AST ALT Alkaline Phosphatase Lactate Dehydrogenase Troponin T C-Reactive Protein Total Protein Albumin Prealbumin Triglycerides Cholesterol LDL Cholesterol Direct HDL Cholesterol 25-OH Vitamin D Total PTH Intact Urine pH Urine WBC (Auto) Urine Creatinine Urine Total Protein Fluid Total Protein Vancomycin Trough Rheumatoid Factor Complement C4 Miscellaneous Test Crossmatch 02/21/17 02/21/17 02/22/17 17:16 23:41 04:10 WBC RBC Hgb Hct MCV MCH MCHC RDW Plt Count Lymph % (Auto) [place] % (Auto) Lymph # [place] # Baso # Seg Neutrophils % Seg Neuts % (Manual) Lymphocytes % (Manual) Monocytes % (Manual) Eosinophils % (Manual) Basophils % (Manual) Nucleated RBC % Seg Neutrophils # Seg Neutrophils # Man Lymphocytes # (Manual) Monocytes # (Manual) Eosinophils # (Manual) Basophils # (Manual) PT INR Fibrinogen dRVVT Confirm Interp Factor V Activity POC ABG pH POC ABG pCO2 POC ABG pO2 ABG pO2 ABG HCO3 ABG Base Excess ABG Hemoglobin Oxyhemoglobin Sodium 135 L Potassium Chloride 97.7 L Carbon Dioxide 21 L BUN 101 H Creatinine 2.5 H Glucose 116 H POC Glucose 120 H 128 H Lactic Acid Calcium Ionized Calcium Phosphorus Magnesium Direct Bilirubin AST ALT Alkaline Phosphatase Lactate Dehydrogenase Troponin T C-Reactive Protein Total Protein Albumin 1.3 L Prealbumin Triglycerides Cholesterol LDL Cholesterol Direct HDL Cholesterol 25-OH Vitamin D Total PTH Intact Urine pH Urine WBC (Auto) Urine Creatinine Urine Total Protein Fluid Total Protein Vancomycin Trough Rheumatoid Factor Complement C4 Miscellaneous Test Crossmatch 02/22/17 02/22/17 02/22/17 06:03 11:38 18:19 WBC RBC Hgb Hct MCV MCH MCHC RDW Plt Count Lymph % (Auto) [place] % (Auto) Lymph # [place] # Baso # Seg Neutrophils % Seg Neuts % (Manual) Lymphocytes % (Manual) Monocytes % (Manual) Eosinophils % (Manual) Basophils % (Manual) Nucleated RBC % Seg Neutrophils # Seg Neutrophils # Man Lymphocytes # (Manual) Monocytes # (Manual) Eosinophils # (Manual) Basophils # (Manual) PT INR Fibrinogen dRVVT Confirm Interp Factor V Activity POC ABG pH POC ABG pCO2 POC ABG pO2 ABG pO2 ABG HCO3 ABG Base Excess ABG Hemoglobin Oxyhemoglobin Sodium Potassium Chloride Carbon Dioxide BUN Creatinine Glucose POC Glucose 126 H 147 H 121 H Lactic Acid Calcium Ionized Calcium Phosphorus Magnesium Direct Bilirubin AST ALT Alkaline Phosphatase Lactate Dehydrogenase Troponin T C-Reactive Protein Total Protein Albumin Prealbumin Triglycerides Cholesterol LDL Cholesterol Direct HDL Cholesterol 25-OH Vitamin D Total PTH Intact Urine pH Urine WBC (Auto) Urine Creatinine Urine Total Protein Fluid Total Protein Vancomycin Trough Rheumatoid Factor Complement C4 Miscellaneous Test Crossmatch 02/23/17 02/23/17 02/23/17 05:00 05:46 12:27 WBC RBC Hgb Hct MCV MCH MCHC RDW Plt Count Lymph % (Auto) [place] % (Auto) Lymph # [place] # Baso # Seg Neutrophils % Seg Neuts % (Manual) Lymphocytes % (Manual) Monocytes % (Manual) Eosinophils % (Manual) Basophils % (Manual) Nucleated RBC % Seg Neutrophils # Seg Neutrophils # Man Lymphocytes # (Manual) Monocytes # (Manual) Eosinophils # (Manual) Basophils # (Manual) PT INR Fibrinogen dRVVT Confirm Interp Factor V Activity POC ABG pH POC ABG pCO2 POC ABG pO2 ABG pO2 ABG HCO3 ABG Base Excess ABG Hemoglobin Oxyhemoglobin Sodium 136 L Potassium Chloride 97.1 L Carbon Dioxide BUN 50 H Creatinine 1.5 H Glucose POC Glucose 110 H 115 H Lactic Acid Calcium 8.1 L Ionized Calcium Phosphorus 1.90 L D Magnesium Direct Bilirubin AST ALT Alkaline Phosphatase Lactate Dehydrogenase Troponin T C-Reactive Protein Total Protein Albumin Prealbumin Triglycerides Cholesterol LDL Cholesterol Direct HDL Cholesterol 25-OH Vitamin D Total PTH Intact Urine pH Urine WBC (Auto) Urine Creatinine Urine Total Protein Fluid Total Protein Vancomycin Trough Rheumatoid Factor Complement C4 Miscellaneous Test Crossmatch 02/23/17 02/23/17 02/24/17 18:02 23:18 05:04 WBC RBC Hgb Hct MCV MCH MCHC RDW Plt Count Lymph % (Auto) [place] % (Auto) Lymph # [place] # Baso # Seg Neutrophils % Seg Neuts % (Manual) Lymphocytes % (Manual) Monocytes % (Manual) Eosinophils % (Manual) Basophils % (Manual) Nucleated RBC % Seg Neutrophils # Seg Neutrophils # Man Lymphocytes # (Manual) Monocytes # (Manual) Eosinophils # (Manual) Basophils # (Manual) PT INR Fibrinogen dRVVT Confirm Interp Factor V Activity POC ABG pH POC ABG pCO2 POC ABG pO2 ABG pO2 ABG HCO3 ABG Base Excess ABG Hemoglobin Oxyhemoglobin Sodium Potassium Chloride Carbon Dioxide BUN Creatinine Glucose POC Glucose 111 H 126 H 121 H Lactic Acid Calcium Ionized Calcium Phosphorus Magnesium Direct Bilirubin AST ALT Alkaline Phosphatase Lactate Dehydrogenase Troponin T C-Reactive Protein Total Protein Albumin Prealbumin Triglycerides Cholesterol LDL Cholesterol Direct HDL Cholesterol 25-OH Vitamin D Total PTH Intact Urine pH Urine WBC (Auto) Urine Creatinine Urine Total Protein Fluid Total Protein Vancomycin Trough Rheumatoid Factor Complement C4 Miscellaneous Test Crossmatch 02/24/17 02/24/17 02/24/17 05:20 10:05 11:34 WBC RBC 2.95 L Hgb 8.4 L Hct 25.7 L MCV MCH MCHC RDW 20.8 H Plt Count Lymph % (Auto) [place] % (Auto) Lymph # [place] # Baso # Seg Neutrophils % 71.8 H Seg Neuts % (Manual) Lymphocytes % (Manual) Monocytes % (Manual) Eosinophils % (Manual) Basophils % (Manual) Nucleated RBC % Seg Neutrophils # Seg Neutrophils # Man Lymphocytes # (Manual) Monocytes # (Manual) Eosinophils # (Manual) Basophils # (Manual) PT INR Fibrinogen dRVVT Confirm Interp Factor V Activity POC ABG pH POC ABG pCO2 POC ABG pO2 ABG pO2 ABG HCO3 ABG Base Excess ABG Hemoglobin Oxyhemoglobin Sodium 136 L Potassium Chloride 95.5 L Carbon Dioxide BUN 76 H Creatinine 2.2 H Glucose 109 H POC Glucose 123 H Lactic Acid Calcium Ionized Calcium Phosphorus Magnesium Direct Bilirubin AST ALT Alkaline Phosphatase Lactate Dehydrogenase Troponin T C-Reactive Protein Total Protein Albumin Prealbumin Triglycerides Cholesterol LDL Cholesterol Direct HDL Cholesterol 25-OH Vitamin D Total PTH Intact Urine pH Urine WBC (Auto) Urine Creatinine Urine Total Protein Fluid Total Protein Vancomycin Trough Rheumatoid Factor Complement C4 Miscellaneous Test Crossmatch 02/24/17 02/24/17 02/25/17 17:43 23:02 05:00 WBC RBC Hgb Hct MCV MCH MCHC RDW Plt Count Lymph % (Auto) [place] % (Auto) Lymph # [place] # Baso # Seg Neutrophils % Seg Neuts % (Manual) Lymphocytes % (Manual) Monocytes % (Manual) Eosinophils % (Manual) Basophils % (Manual) Nucleated RBC % Seg Neutrophils # Seg Neutrophils # Man Lymphocytes # (Manual) Monocytes # (Manual) Eosinophils # (Manual) Basophils # (Manual) PT INR Fibrinogen dRVVT Confirm Interp Factor V Activity POC ABG pH POC ABG pCO2 POC ABG pO2 ABG pO2 ABG HCO3 ABG Base Excess ABG Hemoglobin Oxyhemoglobin Sodium Potassium Chloride 96.8 L Carbon Dioxide BUN 94 H Creatinine 2.8 H Glucose 118 H POC Glucose 128 H 144 H Lactic Acid Calcium Ionized Calcium Phosphorus Magnesium Direct Bilirubin AST ALT Alkaline Phosphatase Lactate Dehydrogenase Troponin T C-Reactive Protein Total Protein Albumin Prealbumin Triglycerides Cholesterol LDL Cholesterol Direct HDL Cholesterol 25-OH Vitamin D Total PTH Intact Urine pH Urine WBC (Auto) Urine Creatinine Urine Total Protein Fluid Total Protein Vancomycin Trough Rheumatoid Factor Complement C4 Miscellaneous Test Crossmatch 02/25/17 02/25/17 02/25/17 05:32 11:44 18:18 WBC RBC Hgb Hct MCV MCH MCHC RDW Plt Count Lymph % (Auto) [place] % (Auto) Lymph # [place] # Baso # Seg Neutrophils % Seg Neuts % (Manual) Lymphocytes % (Manual) Monocytes % (Manual) Eosinophils % (Manual) Basophils % (Manual) Nucleated RBC % Seg Neutrophils # Seg Neutrophils # Man Lymphocytes # (Manual) Monocytes # (Manual) Eosinophils # (Manual) Basophils # (Manual) PT INR Fibrinogen dRVVT Confirm Interp Factor V Activity POC ABG pH POC ABG pCO2 POC ABG pO2 ABG pO2 ABG HCO3 ABG Base Excess ABG Hemoglobin Oxyhemoglobin Sodium Potassium Chloride Carbon Dioxide BUN Creatinine Glucose POC Glucose 118 H 106 H 210 H Lactic Acid Calcium Ionized Calcium Phosphorus Magnesium Direct Bilirubin AST ALT Alkaline Phosphatase Lactate Dehydrogenase Troponin T C-Reactive Protein Total Protein Albumin Prealbumin Triglycerides Cholesterol LDL Cholesterol Direct HDL Cholesterol 25-OH Vitamin D Total PTH Intact Urine pH Urine WBC (Auto) Urine Creatinine Urine Total Protein Fluid Total Protein Vancomycin Trough Rheumatoid Factor Complement C4 Miscellaneous Test Crossmatch 02/26/17 02/26/17 02/26/17 00:07 05:14 12:07 WBC RBC Hgb Hct MCV MCH MCHC RDW Plt Count Lymph % (Auto) [place] % (Auto) Lymph # [place] # Baso # Seg Neutrophils % Seg Neuts % (Manual) Lymphocytes % (Manual) Monocytes % (Manual) Eosinophils % (Manual) Basophils % (Manual) Nucleated RBC % Seg Neutrophils # Seg Neutrophils # Man Lymphocytes # (Manual) Monocytes # (Manual) Eosinophils # (Manual) Basophils # (Manual) PT INR Fibrinogen dRVVT Confirm Interp Factor V Activity POC ABG pH POC ABG pCO2 POC ABG pO2 ABG pO2 ABG HCO3 ABG Base Excess ABG Hemoglobin Oxyhemoglobin Sodium Potassium Chloride Carbon Dioxide BUN Creatinine Glucose POC Glucose 136 H 142 H 132 H Lactic Acid Calcium Ionized Calcium Phosphorus Magnesium Direct Bilirubin AST ALT Alkaline Phosphatase Lactate Dehydrogenase Troponin T C-Reactive Protein Total Protein Albumin Prealbumin Triglycerides Cholesterol LDL Cholesterol Direct HDL Cholesterol 25-OH Vitamin D Total PTH Intact Urine pH Urine WBC (Auto) Urine Creatinine Urine Total Protein Fluid Total Protein Vancomycin Trough Rheumatoid Factor Complement C4 Miscellaneous Test Crossmatch 02/26/17 02/26/17 02/27/17 18:35 23:54 06:25 WBC RBC Hgb Hct MCV MCH MCHC RDW Plt Count Lymph % (Auto) [place] % (Auto) Lymph # [place] # Baso # Seg Neutrophils % Seg Neuts % (Manual) Lymphocytes % (Manual) Monocytes % (Manual) Eosinophils % (Manual) Basophils % (Manual) Nucleated RBC % Seg Neutrophils # Seg Neutrophils # Man Lymphocytes # (Manual) Monocytes # (Manual) Eosinophils # (Manual) Basophils # (Manual) PT INR Fibrinogen dRVVT Confirm Interp Factor V Activity POC ABG pH POC ABG pCO2 POC ABG pO2 ABG pO2 ABG HCO3 ABG Base Excess ABG Hemoglobin Oxyhemoglobin Sodium Potassium Chloride Carbon Dioxide BUN Creatinine Glucose POC Glucose 155 H 150 H 138 H Lactic Acid Calcium Ionized Calcium Phosphorus Magnesium Direct Bilirubin AST ALT Alkaline Phosphatase Lactate Dehydrogenase Troponin T C-Reactive Protein Total Protein Albumin Prealbumin Triglycerides Cholesterol LDL Cholesterol Direct HDL Cholesterol 25-OH Vitamin D Total PTH Intact Urine pH Urine WBC (Auto) Urine Creatinine Urine Total Protein Fluid Total Protein Vancomycin Trough Rheumatoid Factor Complement C4 Miscellaneous Test Crossmatch 02/27/17 02/27/17 02/27/17 08:50 11:50 17:38 WBC RBC Hgb Hct MCV MCH MCHC RDW Plt Count Lymph % (Auto) [place] % (Auto) Lymph # [place] # Baso # Seg Neutrophils % Seg Neuts % (Manual) Lymphocytes % (Manual) Monocytes % (Manual) Eosinophils % (Manual) Basophils % (Manual) Nucleated RBC % Seg Neutrophils # Seg Neutrophils # Man Lymphocytes # (Manual) Monocytes # (Manual) Eosinophils # (Manual) Basophils # (Manual) PT INR Fibrinogen dRVVT Confirm Interp Factor V Activity POC ABG pH POC ABG pCO2 POC ABG pO2 ABG pO2 ABG HCO3 ABG Base Excess ABG Hemoglobin Oxyhemoglobin Sodium Potassium 3.2 L Chloride Carbon Dioxide BUN 95 H Creatinine 2.7 H Glucose 179 H POC Glucose 150 H 133 H Lactic Acid Calcium Ionized Calcium Phosphorus Magnesium Direct Bilirubin AST ALT Alkaline Phosphatase Lactate Dehydrogenase Troponin T C-Reactive Protein Total Protein Albumin Prealbumin Triglycerides Cholesterol LDL Cholesterol Direct HDL Cholesterol 25-OH Vitamin D Total PTH Intact Urine pH Urine WBC (Auto) Urine Creatinine Urine Total Protein Fluid Total Protein Vancomycin Trough Rheumatoid Factor Complement C4 Miscellaneous Test Crossmatch 02/27/17 02/28/17 02/28/17 23:55 05:23 06:10 WBC RBC Hgb Hct MCV MCH MCHC RDW Plt Count Lymph % (Auto) [place] % (Auto) Lymph # [place] # Baso # Seg Neutrophils % Seg Neuts % (Manual) Lymphocytes % (Manual) Monocytes % (Manual) Eosinophils % (Manual) Basophils % (Manual) Nucleated RBC % Seg Neutrophils # Seg Neutrophils # Man Lymphocytes # (Manual) Monocytes # (Manual) Eosinophils # (Manual) Basophils # (Manual) PT INR Fibrinogen dRVVT Confirm Interp Factor V Activity POC ABG pH POC ABG pCO2 POC ABG pO2 ABG pO2 ABG HCO3 ABG Base Excess ABG Hemoglobin Oxyhemoglobin Sodium 134 L Potassium 3.0 L Chloride 94.9 L Carbon Dioxide BUN 53 H Creatinine 1.9 H Glucose 138 H POC Glucose 134 H 164 H Lactic Acid Calcium Ionized Calcium Phosphorus 2.00 L D Magnesium Direct Bilirubin AST ALT Alkaline Phosphatase Lactate Dehydrogenase Troponin T C-Reactive Protein Total Protein Albumin Prealbumin Triglycerides Cholesterol LDL Cholesterol Direct HDL Cholesterol 25-OH Vitamin D Total PTH Intact Urine pH Urine WBC (Auto) Urine Creatinine Urine Total Protein Fluid Total Protein Vancomycin Trough Rheumatoid Factor Complement C4 Miscellaneous Test Crossmatch 02/28/17 02/28/17 02/28/17 12:18 17:54 23:47 WBC RBC Hgb Hct MCV MCH MCHC RDW Plt Count Lymph % (Auto) [place] % (Auto) Lymph # [place] # Baso # Seg Neutrophils % Seg Neuts % (Manual) Lymphocytes % (Manual) Monocytes % (Manual) Eosinophils % (Manual) Basophils % (Manual) Nucleated RBC % Seg Neutrophils # Seg Neutrophils # Man Lymphocytes # (Manual) Monocytes # (Manual) Eosinophils # (Manual) Basophils # (Manual) PT INR Fibrinogen dRVVT Confirm Interp Factor V Activity POC ABG pH POC ABG pCO2 POC ABG pO2 ABG pO2 ABG HCO3 ABG Base Excess ABG Hemoglobin Oxyhemoglobin Sodium Potassium Chloride Carbon Dioxide BUN Creatinine Glucose POC Glucose 135 H 140 H 144 H Lactic Acid Calcium Ionized Calcium Phosphorus Magnesium Direct Bilirubin AST ALT Alkaline Phosphatase Lactate Dehydrogenase Troponin T C-Reactive Protein Total Protein Albumin Prealbumin Triglycerides Cholesterol LDL Cholesterol Direct HDL Cholesterol 25-OH Vitamin D Total PTH Intact Urine pH Urine WBC (Auto) Urine Creatinine Urine Total Protein Fluid Total Protein Vancomycin Trough Rheumatoid Factor Complement C4 Miscellaneous Test Crossmatch 03/01/17 03/01/17 03/01/17 04:00 12:02 17:13 WBC RBC Hgb Hct MCV MCH MCHC RDW Plt Count Lymph % (Auto) [place] % (Auto) Lymph # [place] # Baso # Seg Neutrophils % Seg Neuts % (Manual) Lymphocytes % (Manual) Monocytes % (Manual) Eosinophils % (Manual) Basophils % (Manual) Nucleated RBC % Seg Neutrophils # Seg Neutrophils # Man Lymphocytes # (Manual) Monocytes # (Manual) Eosinophils # (Manual) Basophils # (Manual) PT INR Fibrinogen dRVVT Confirm Interp Factor V Activity POC ABG pH POC ABG pCO2 POC ABG pO2 ABG pO2 ABG HCO3 ABG Base Excess ABG Hemoglobin Oxyhemoglobin Sodium Potassium 3.0 L Chloride 97.0 L Carbon Dioxide BUN 81 H Creatinine 2.6 H Glucose 121 H POC Glucose 165 H 126 H Lactic Acid Calcium Ionized Calcium Phosphorus Magnesium Direct Bilirubin AST ALT Alkaline Phosphatase Lactate Dehydrogenase Troponin T C-Reactive Protein Total Protein Albumin Prealbumin Triglycerides Cholesterol LDL Cholesterol Direct HDL Cholesterol 25-OH Vitamin D Total PTH Intact Urine pH Urine WBC (Auto) Urine Creatinine Urine Total Protein Fluid Total Protein Vancomycin Trough Rheumatoid Factor Complement C4 Miscellaneous Test Crossmatch 03/02/17 03/02/17 03/02/17 00:10 03:05 05:20 WBC RBC Hgb Hct MCV MCH MCHC RDW Plt Count Lymph % (Auto) [place] % (Auto) Lymph # [place] # Baso # Seg Neutrophils % Seg Neuts % (Manual) Lymphocytes % (Manual) Monocytes % (Manual) Eosinophils % (Manual) Basophils % (Manual) Nucleated RBC % Seg Neutrophils # Seg Neutrophils # Man Lymphocytes # (Manual) Monocytes # (Manual) Eosinophils # (Manual) Basophils # (Manual) PT INR Fibrinogen dRVVT Confirm Interp Factor V Activity POC ABG pH POC ABG pCO2 POC ABG pO2 ABG pO2 ABG HCO3 ABG Base Excess ABG Hemoglobin Oxyhemoglobin Sodium Potassium 3.0 L Chloride Carbon Dioxide BUN 41 H Creatinine 1.6 H Glucose 130 H POC Glucose 129 H 173 H Lactic Acid Calcium Ionized Calcium Phosphorus 1.70 L D Magnesium 1.40 L Direct Bilirubin AST ALT Alkaline Phosphatase Lactate Dehydrogenase Troponin T C-Reactive Protein Total Protein Albumin Prealbumin Triglycerides Cholesterol LDL Cholesterol Direct HDL Cholesterol 25-OH Vitamin D Total PTH Intact Urine pH Urine WBC (Auto) Urine Creatinine Urine Total Protein Fluid Total Protein Vancomycin Trough Rheumatoid Factor Complement C4 Miscellaneous Test Crossmatch 03/02/17 03/02/17 03/02/17 11:49 16:38 23:46 WBC RBC Hgb Hct MCV MCH MCHC RDW Plt Count Lymph % (Auto) [place] % (Auto) Lymph # [place] # Baso # Seg Neutrophils % Seg Neuts % (Manual) Lymphocytes % (Manual) Monocytes % (Manual) Eosinophils % (Manual) Basophils % (Manual) Nucleated RBC % Seg Neutrophils # Seg Neutrophils # Man Lymphocytes # (Manual) Monocytes # (Manual) Eosinophils # (Manual) Basophils # (Manual) PT INR Fibrinogen dRVVT Confirm Interp Factor V Activity POC ABG pH POC ABG pCO2 POC ABG pO2 ABG pO2 ABG HCO3 ABG Base Excess ABG Hemoglobin Oxyhemoglobin Sodium Potassium Chloride Carbon Dioxide BUN Creatinine Glucose POC Glucose 129 H 141 H 119 H Lactic Acid Calcium Ionized Calcium Phosphorus Magnesium Direct Bilirubin AST ALT Alkaline Phosphatase Lactate Dehydrogenase Troponin T C-Reactive Protein Total Protein Albumin Prealbumin Triglycerides Cholesterol LDL Cholesterol Direct HDL Cholesterol 25-OH Vitamin D Total PTH Intact Urine pH Urine WBC (Auto) Urine Creatinine Urine Total Protein Fluid Total Protein Vancomycin Trough Rheumatoid Factor Complement C4 Miscellaneous Test Crossmatch 03/03/17 03/03/17 03/03/17 04:00 11:59 18:08 WBC RBC Hgb Hct MCV MCH MCHC RDW Plt Count Lymph % (Auto) [place] % (Auto) Lymph # [place] # Baso # Seg Neutrophils % Seg Neuts % (Manual) Lymphocytes % (Manual) Monocytes % (Manual) Eosinophils % (Manual) Basophils % (Manual) Nucleated RBC % Seg Neutrophils # Seg Neutrophils # Man Lymphocytes # (Manual) Monocytes # (Manual) Eosinophils # (Manual) Basophils # (Manual) PT INR Fibrinogen dRVVT Confirm Interp Factor V Activity POC ABG pH POC ABG pCO2 POC ABG pO2 ABG pO2 ABG HCO3 ABG Base Excess ABG Hemoglobin Oxyhemoglobin Sodium Potassium Chloride Carbon Dioxide BUN 70 H Creatinine 2.3 H Glucose POC Glucose 125 H 131 H Lactic Acid Calcium Ionized Calcium Phosphorus Magnesium Direct Bilirubin AST ALT Alkaline Phosphatase Lactate Dehydrogenase Troponin T C-Reactive Protein Total Protein Albumin Prealbumin Triglycerides Cholesterol LDL Cholesterol Direct HDL Cholesterol 25-OH Vitamin D Total PTH Intact Urine pH Urine WBC (Auto) Urine Creatinine Urine Total Protein Fluid Total Protein Vancomycin Trough Rheumatoid Factor Complement C4 Miscellaneous Test Crossmatch 03/03/17 03/03/17 03/04/17 20:17 23:43 05:21 WBC RBC Hgb Hct MCV MCH MCHC RDW Plt Count Lymph % (Auto) [place] % (Auto) Lymph # [place] # Baso # Seg Neutrophils % Seg Neuts % (Manual) Lymphocytes % (Manual) Monocytes % (Manual) Eosinophils % (Manual) Basophils % (Manual) Nucleated RBC % Seg Neutrophils # Seg Neutrophils # Man Lymphocytes # (Manual) Monocytes # (Manual) Eosinophils # (Manual) Basophils # (Manual) PT INR Fibrinogen dRVVT Confirm Interp Factor V Activity POC ABG pH 7.518 H POC ABG pCO2 28.8 L POC ABG pO2 61 L ABG pO2 ABG HCO3 ABG Base Excess ABG Hemoglobin Oxyhemoglobin Sodium Potassium Chloride Carbon Dioxide BUN Creatinine Glucose POC Glucose 122 H 130 H Lactic Acid Calcium Ionized Calcium Phosphorus Magnesium Direct Bilirubin AST ALT Alkaline Phosphatase Lactate Dehydrogenase Troponin T C-Reactive Protein Total Protein Albumin Prealbumin Triglycerides Cholesterol LDL Cholesterol Direct HDL Cholesterol 25-OH Vitamin D Total PTH Intact Urine pH Urine WBC (Auto) Urine Creatinine Urine Total Protein Fluid Total Protein Vancomycin Trough Rheumatoid Factor Complement C4 Miscellaneous Test Crossmatch 03/04/17 03/05/17 03/06/17 06:10 06:15 03:52 WBC RBC Hgb Hct MCV MCH MCHC RDW Plt Count Lymph % (Auto) [place] % (Auto) Lymph # [place] # Baso # Seg Neutrophils % Seg Neuts % (Manual) Lymphocytes % (Manual) Monocytes % (Manual) Eosinophils % (Manual) Basophils % (Manual) Nucleated RBC % Seg Neutrophils # Seg Neutrophils # Man Lymphocytes # (Manual) Monocytes # (Manual) Eosinophils # (Manual) Basophils # (Manual) PT INR Fibrinogen dRVVT Confirm Interp Factor V Activity POC ABG pH POC ABG pCO2 POC ABG pO2 ABG pO2 ABG HCO3 ABG Base Excess ABG Hemoglobin Oxyhemoglobin Sodium 135 L 136 L Potassium 5.2 H 5.9 H Chloride 95.8 L 97.7 L 96.0 L Carbon Dioxide 21 L 21 L BUN 40 H 56 H 70 H Creatinine 1.7 H 2.4 H 3.0 H Glucose 118 H POC Glucose Lactic Acid Calcium Ionized Calcium Phosphorus 4.80 H D 6.00 H D Magnesium 2.60 H Direct Bilirubin AST ALT Alkaline Phosphatase 165 H Lactate Dehydrogenase Troponin T C-Reactive Protein Total Protein Albumin 1.5 L Prealbumin Triglycerides Cholesterol LDL Cholesterol Direct HDL Cholesterol 25-OH Vitamin D Total PTH Intact Urine pH Urine WBC (Auto) Urine Creatinine Urine Total Protein Fluid Total Protein Vancomycin Trough Rheumatoid Factor Complement C4 Miscellaneous Test Crossmatch 03/06/17 03/06/17 03/06/17 11:19 18:40 23:39 WBC RBC Hgb Hct MCV MCH MCHC RDW Plt Count Lymph % (Auto) [place] % (Auto) Lymph # [place] # Baso # Seg Neutrophils % Seg Neuts % (Manual) Lymphocytes % (Manual) Monocytes % (Manual) Eosinophils % (Manual) Basophils % (Manual) Nucleated RBC % Seg Neutrophils # Seg Neutrophils # Man Lymphocytes # (Manual) Monocytes # (Manual) Eosinophils # (Manual) Basophils # (Manual) PT INR Fibrinogen dRVVT Confirm Interp Factor V Activity POC ABG pH POC ABG pCO2 POC ABG pO2 ABG pO2 ABG HCO3 ABG Base Excess ABG Hemoglobin Oxyhemoglobin Sodium Potassium Chloride Carbon Dioxide BUN Creatinine Glucose POC Glucose 108 H 110 H 156 H Lactic Acid Calcium Ionized Calcium Phosphorus Magnesium Direct Bilirubin AST ALT Alkaline Phosphatase Lactate Dehydrogenase Troponin T C-Reactive Protein Total Protein Albumin Prealbumin Triglycerides Cholesterol LDL Cholesterol Direct HDL Cholesterol 25-OH Vitamin D Total PTH Intact Urine pH Urine WBC (Auto) Urine Creatinine Urine Total Protein Fluid Total Protein Vancomycin Trough Rheumatoid Factor Complement C4 Miscellaneous Test Crossmatch 03/07/17 03/07/17 03/07/17 06:04 11:56 23:31 WBC RBC Hgb Hct MCV MCH MCHC RDW Plt Count Lymph % (Auto) [place] % (Auto) Lymph # [place] # Baso # Seg Neutrophils % Seg Neuts % (Manual) Lymphocytes % (Manual) Monocytes % (Manual) Eosinophils % (Manual) Basophils % (Manual) Nucleated RBC % Seg Neutrophils # Seg Neutrophils # Man Lymphocytes # (Manual) Monocytes # (Manual) Eosinophils # (Manual) Basophils # (Manual) PT INR Fibrinogen dRVVT Confirm Interp Factor V Activity POC ABG pH POC ABG pCO2 POC ABG pO2 ABG pO2 ABG HCO3 ABG Base Excess ABG Hemoglobin Oxyhemoglobin Sodium Potassium Chloride 97.5 L Carbon Dioxide BUN 28 H Creatinine 1.5 H Glucose POC Glucose 106 H 131 H Lactic Acid Calcium 7.9 L Ionized Calcium Phosphorus Magnesium Direct Bilirubin AST ALT Alkaline Phosphatase Lactate Dehydrogenase Troponin T C-Reactive Protein Total Protein Albumin Prealbumin Triglycerides Cholesterol LDL Cholesterol Direct HDL Cholesterol 25-OH Vitamin D Total PTH Intact Urine pH Urine WBC (Auto) Urine Creatinine Urine Total Protein Fluid Total Protein Vancomycin Trough Rheumatoid Factor Complement C4 Miscellaneous Test Crossmatch 03/08/17 03/08/17 03/08/17 05:15 05:38 11:50 WBC RBC Hgb Hct MCV MCH MCHC RDW Plt Count Lymph % (Auto) [place] % (Auto) Lymph # [place] # Baso # Seg Neutrophils % Seg Neuts % (Manual) Lymphocytes % (Manual) Monocytes % (Manual) Eosinophils % (Manual) Basophils % (Manual) Nucleated RBC % Seg Neutrophils # Seg Neutrophils # Man Lymphocytes # (Manual) Monocytes # (Manual) Eosinophils # (Manual) Basophils # (Manual) PT INR Fibrinogen dRVVT Confirm Interp Factor V Activity POC ABG pH POC ABG pCO2 POC ABG pO2 ABG pO2 ABG HCO3 ABG Base Excess ABG Hemoglobin Oxyhemoglobin Sodium 135 L Potassium Chloride 96.6 L Carbon Dioxide 20 L BUN 46 H Creatinine 2.3 H D Glucose 117 H POC Glucose 156 H 131 H Lactic Acid Calcium Ionized Calcium Phosphorus Magnesium Direct Bilirubin AST ALT Alkaline Phosphatase Lactate Dehydrogenase Troponin T C-Reactive Protein Total Protein Albumin Prealbumin Triglycerides Cholesterol LDL Cholesterol Direct HDL Cholesterol 25-OH Vitamin D Total PTH Intact Urine pH Urine WBC (Auto) Urine Creatinine Urine Total Protein Fluid Total Protein Vancomycin Trough Rheumatoid Factor Complement C4 Miscellaneous Test Crossmatch 03/08/17 03/09/17 03/09/17 23:34 04:42 05:20 WBC RBC Hgb Hct MCV MCH MCHC RDW Plt Count Lymph % (Auto) [place] % (Auto) Lymph # [place] # Baso # Seg Neutrophils % Seg Neuts % (Manual) Lymphocytes % (Manual) Monocytes % (Manual) Eosinophils % (Manual) Basophils % (Manual) Nucleated RBC % Seg Neutrophils # Seg Neutrophils # Man Lymphocytes # (Manual) Monocytes # (Manual) Eosinophils # (Manual) Basophils # (Manual) PT INR Fibrinogen dRVVT Confirm Interp Factor V Activity POC ABG pH POC ABG pCO2 POC ABG pO2 ABG pO2 ABG HCO3 ABG Base Excess ABG Hemoglobin Oxyhemoglobin Sodium Potassium 3.2 L Chloride Carbon Dioxide BUN 30 H Creatinine 1.7 H Glucose 112 H POC Glucose 125 H 128 H Lactic Acid Calcium 8.2 L Ionized Calcium Phosphorus 1.80 L D Magnesium 1.40 L Direct Bilirubin AST ALT Alkaline Phosphatase Lactate Dehydrogenase Troponin T C-Reactive Protein Total Protein Albumin Prealbumin Triglycerides Cholesterol LDL Cholesterol Direct HDL Cholesterol 25-OH Vitamin D Total PTH Intact Urine pH Urine WBC (Auto) Urine Creatinine Urine Total Protein Fluid Total Protein Vancomycin Trough Rheumatoid Factor Complement C4 Miscellaneous Test Crossmatch 03/09/17 03/09/17 03/10/17 11:48 17:38 00:08 WBC RBC Hgb Hct MCV MCH MCHC RDW Plt Count Lymph % (Auto) [place] % (Auto) Lymph # [place] # Baso # Seg Neutrophils % Seg Neuts % (Manual) Lymphocytes % (Manual) Monocytes % (Manual) Eosinophils % (Manual) Basophils % (Manual) Nucleated RBC % Seg Neutrophils # Seg Neutrophils # Man Lymphocytes # (Manual) Monocytes # (Manual) Eosinophils # (Manual) Basophils # (Manual) PT INR Fibrinogen dRVVT Confirm Interp Factor V Activity POC ABG pH POC ABG pCO2 POC ABG pO2 ABG pO2 ABG HCO3 ABG Base Excess ABG Hemoglobin Oxyhemoglobin Sodium Potassium Chloride Carbon Dioxide BUN Creatinine Glucose POC Glucose 146 H 140 H 137 H Lactic Acid Calcium Ionized Calcium Phosphorus Magnesium Direct Bilirubin AST ALT Alkaline Phosphatase Lactate Dehydrogenase Troponin T C-Reactive Protein Total Protein Albumin Prealbumin Triglycerides Cholesterol LDL Cholesterol Direct HDL Cholesterol 25-OH Vitamin D Total PTH Intact Urine pH Urine WBC (Auto) Urine Creatinine Urine Total Protein Fluid Total Protein Vancomycin Trough Rheumatoid Factor Complement C4 Miscellaneous Test Crossmatch 03/10/17 03/10/17 03/10/17 04:46 06:37 11:22 WBC RBC Hgb Hct MCV MCH MCHC RDW Plt Count Lymph % (Auto) [place] % (Auto) Lymph # [place] # Baso # Seg Neutrophils % Seg Neuts % (Manual) Lymphocytes % (Manual) Monocytes % (Manual) Eosinophils % (Manual) Basophils % (Manual) Nucleated RBC % Seg Neutrophils # Seg Neutrophils # Man Lymphocytes # (Manual) Monocytes # (Manual) Eosinophils # (Manual) Basophils # (Manual) PT INR Fibrinogen dRVVT Confirm Interp Factor V Activity POC ABG pH POC ABG pCO2 POC ABG pO2 ABG pO2 ABG HCO3 ABG Base Excess ABG Hemoglobin Oxyhemoglobin Sodium 135 L Potassium Chloride 96.3 L Carbon Dioxide 21 L BUN 46 H Creatinine 2.2 H Glucose 106 H POC Glucose 115 H 151 H Lactic Acid Calcium 8.2 L Ionized Calcium Phosphorus Magnesium Direct Bilirubin AST ALT Alkaline Phosphatase Lactate Dehydrogenase Troponin T C-Reactive Protein Total Protein Albumin Prealbumin Triglycerides Cholesterol LDL Cholesterol Direct HDL Cholesterol 25-OH Vitamin D Total PTH Intact Urine pH Urine WBC (Auto) Urine Creatinine Urine Total Protein Fluid Total Protein Vancomycin Trough Rheumatoid Factor Complement C4 Miscellaneous Test Crossmatch 03/10/17 03/10/17 03/11/17 17:53 23:46 05:19 WBC RBC Hgb Hct MCV MCH MCHC RDW Plt Count Lymph % (Auto) [place] % (Auto) Lymph # [place] # Baso # Seg Neutrophils % Seg Neuts % (Manual) Lymphocytes % (Manual) Monocytes % (Manual) Eosinophils % (Manual) Basophils % (Manual) Nucleated RBC % Seg Neutrophils # Seg Neutrophils # Man Lymphocytes # (Manual) Monocytes # (Manual) Eosinophils # (Manual) Basophils # (Manual) PT INR Fibrinogen dRVVT Confirm Interp Factor V Activity POC ABG pH POC ABG pCO2 POC ABG pO2 ABG pO2 ABG HCO3 ABG Base Excess ABG Hemoglobin Oxyhemoglobin Sodium Potassium Chloride Carbon Dioxide BUN Creatinine Glucose POC Glucose 137 H 131 H 108 H Lactic Acid Calcium Ionized Calcium Phosphorus Magnesium Direct Bilirubin AST ALT Alkaline Phosphatase Lactate Dehydrogenase Troponin T C-Reactive Protein Total Protein Albumin Prealbumin Triglycerides Cholesterol LDL Cholesterol Direct HDL Cholesterol 25-OH Vitamin D Total PTH Intact Urine pH Urine WBC (Auto) Urine Creatinine Urine Total Protein Fluid Total Protein Vancomycin Trough Rheumatoid Factor Complement C4 Miscellaneous Test Crossmatch 03/11/17 03/11/17 03/11/17 11:37 18:13 23:55 WBC RBC Hgb Hct MCV MCH MCHC RDW Plt Count Lymph % (Auto) [place] % (Auto) Lymph # [place] # Baso # Seg Neutrophils % Seg Neuts % (Manual) Lymphocytes % (Manual) Monocytes % (Manual) Eosinophils % (Manual) Basophils % (Manual) Nucleated RBC % Seg Neutrophils # Seg Neutrophils # Man Lymphocytes # (Manual) Monocytes # (Manual) Eosinophils # (Manual) Basophils # (Manual) PT INR Fibrinogen dRVVT Confirm Interp Factor V Activity POC ABG pH POC ABG pCO2 POC ABG pO2 ABG pO2 ABG HCO3 ABG Base Excess ABG Hemoglobin Oxyhemoglobin Sodium Potassium Chloride Carbon Dioxide BUN Creatinine Glucose POC Glucose 113 H 126 H 134 H Lactic Acid Calcium Ionized Calcium Phosphorus Magnesium Direct Bilirubin AST ALT Alkaline Phosphatase Lactate Dehydrogenase Troponin T C-Reactive Protein Total Protein Albumin Prealbumin Triglycerides Cholesterol LDL Cholesterol Direct HDL Cholesterol 25-OH Vitamin D Total PTH Intact Urine pH Urine WBC (Auto) Urine Creatinine Urine Total Protein Fluid Total Protein Vancomycin Trough Rheumatoid Factor Complement C4 Miscellaneous Test Crossmatch 03/12/17 05:06 WBC RBC Hgb Hct MCV MCH MCHC RDW Plt Count Lymph % (Auto) [place] % (Auto) Lymph # [place] # Baso # Seg Neutrophils % Seg Neuts % (Manual) Lymphocytes % (Manual) Monocytes % (Manual) Eosinophils % (Manual) Basophils % (Manual) Nucleated RBC % Seg Neutrophils # Seg Neutrophils # Man Lymphocytes # (Manual) Monocytes # (Manual) Eosinophils # (Manual) Basophils # (Manual) PT INR Fibrinogen dRVVT Confirm Interp Factor V Activity POC ABG pH POC ABG pCO2 POC ABG pO2 ABG pO2 ABG HCO3 ABG Base Excess ABG Hemoglobin Oxyhemoglobin Sodium Potassium Chloride Carbon Dioxide BUN Creatinine Glucose POC Glucose 127 H Lactic Acid Calcium Ionized Calcium Phosphorus Magnesium Direct Bilirubin AST ALT Alkaline Phosphatase Lactate Dehydrogenase Troponin T C-Reactive Protein Total Protein Albumin Prealbumin Triglycerides Cholesterol LDL Cholesterol Direct HDL Cholesterol 25-OH Vitamin D Total PTH Intact Urine pH Urine WBC (Auto) Urine Creatinine Urine Total Protein Fluid Total Protein Vancomycin Trough Rheumatoid Factor Complement C4 Miscellaneous Test Crossmatch Allied health notes reviewed: nursing
--- NOTE | 2017-03-12 10:36 | Progress Note ---
Assessment and Plan Assessment * End-stage renal disease on maintenance hemodialysis * Patient had acute kidney injury secondary to ATN. No evidence of renal recovery. 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 * Continue PRN albumin for blood pressure support * Packed RBC transfusion as needed per primary team * Patient's serum creatinine is noted to be low. However she is oliguric and remains volume overloaded. Needs to be maintained on dialysis at this time. . * Avoid nephrotoxins * Adjust meds for GFR less than 10 * No evidence of renal recovery at this time * Patient currently has left femoral Vas-Cath in place Subjective Date of service: 03/12/17 Principal diagnosis: Acute resp failure on MVS; S/P Acute CVA; Acute Encephalopathy; JUANITA Interval history: Patient remains in the ICU. Still on the ventilator with 25% FiO2. Unresponsive. Continues to be on amiodarone as well as Levophed drip Objective - Vital Signs Vital signs: Vital Signs - 12hr 03/11/17 03/11/17 03/11/17 22:38 22:42 23:00 Temperature Pulse Rate 102 H 101 H 87 Pulse Rate [ From Monitor] Pulse Rate [ Throughout] Respiratory 32 H 15 Rate Respiratory Rate [ Throughout] Blood Pressure 113/64 114/52 O2 Sat by Pulse 100 100 Oximetry O2 Sat by Pulse Oximetry [ Assessment] 03/11/17 03/11/17 03/12/17 23:17 23:30 00:00 Temperature 98.7 F Pulse Rate 101 H 95 H Pulse Rate [ From Monitor] Pulse Rate [ Throughout] Respiratory 19 15 Rate Respiratory Rate [ Throughout] Blood Pressure 104/48 87/38 O2 Sat by Pulse 100 100 Oximetry O2 Sat by Pulse Oximetry [ Assessment] 03/12/17 03/12/17 03/12/17 00:23 00:30 00:33 Temperature Pulse Rate 102 H 95 H Pulse Rate [ 94 H From Monitor] Pulse Rate [ Throughout] Respiratory 20 22 Rate Respiratory Rate [ Throughout] Blood Pressure 113/64 77/32 O2 Sat by Pulse 100 100 100 Oximetry O2 Sat by Pulse Oximetry [ Assessment] 03/12/17 03/12/17 03/12/17 01:00 01:30 02:00 Temperature Pulse Rate 83 83 87 Pulse Rate [ From Monitor] Pulse Rate [ Throughout] Respiratory 20 21 15 Rate Respiratory Rate [ Throughout] Blood Pressure 112/52 103/51 108/63 O2 Sat by Pulse 100 100 100 Oximetry O2 Sat by Pulse Oximetry [ Assessment] 03/12/17 03/12/17 03/12/17 02:30 03:00 03:15 Temperature Pulse Rate 84 84 84 Pulse Rate [ From Monitor] Pulse Rate [ Throughout] Respiratory 15 14 Rate Respiratory Rate [ Throughout] Blood Pressure 108/54 100/51 100/51 O2 Sat by Pulse 100 100 100 Oximetry O2 Sat by Pulse 100 Oximetry [ Assessment] 03/12/17 03/12/17 03/12/17 03:24 03:30 04:00 Temperature 97.9 F Pulse Rate 86 92 H Pulse Rate [ From Monitor] Pulse Rate [ Throughout] Respiratory 17 19 Rate Respiratory Rate [ Throughout] Blood Pressure 100/53 112/64 O2 Sat by Pulse 100 100 Oximetry O2 Sat by Pulse Oximetry [ Assessment] 03/12/17 03/12/17 03/12/17 04:05 04:30 04:40 Temperature Pulse Rate 85 84 Pulse Rate [ 85 From Monitor] Pulse Rate [ Throughout] Respiratory 16 14 Rate Respiratory Rate [ Throughout] Blood Pressure 103/54 103/51 O2 Sat by Pulse 100 100 Oximetry O2 Sat by Pulse Oximetry [ Assessment] 03/12/17 03/12/17 03/12/17 05:00 05:30 06:00 Temperature Pulse Rate 85 83 86 Pulse Rate [ From Monitor] Pulse Rate [ Throughout] Respiratory 17 19 19 Rate Respiratory Rate [ Throughout] Blood Pressure 104/50 100/51 113/60 O2 Sat by Pulse 100 100 100 Oximetry O2 Sat by Pulse Oximetry [ Assessment] 03/12/17 03/12/17 03/12/17 06:30 07:00 07:30 Temperature Pulse Rate 87 87 83 Pulse Rate [ From Monitor] Pulse Rate [ Throughout] Respiratory 17 17 14 Rate Respiratory Rate [ Throughout] Blood Pressure 128/64 124/59 104/48 O2 Sat by Pulse 100 100 100 Oximetry O2 Sat by Pulse Oximetry [ Assessment] 03/12/17 03/12/17 03/12/17 08:00 08:22 08:24 Temperature 97.5 F L Pulse Rate 87 83 Pulse Rate [ 87 From Monitor] Pulse Rate [ 90 Throughout] Respiratory 28 H Rate Respiratory 17 Rate [ Throughout] Blood Pressure 113/56 113/60 O2 Sat by Pulse 100 100 Oximetry O2 Sat by Pulse Oximetry [ Assessment] 03/12/17 08:39 Temperature Pulse Rate Pulse Rate [ From Monitor] Pulse Rate [ 94 H Throughout] Respiratory Rate Respiratory 14 Rate [ Throughout] Blood Pressure O2 Sat by Pulse Oximetry O2 Sat by Pulse Oximetry [ Assessment] - General Appearance General appearance: well-developed, well-nourished, appears stated age, intubated EENT: PERRL, mucous membranes moist Neck: other (tracheostomy tube in place. Connected to the ventilator) Respiratory: Present: Ronchi (scattered rhonchi) Cardiology: regular, normal heart rate Gastrointestinal: normal, normoactive bowel sounds Integumentary: other (1+ edema. Vas-Cath and left groin) - Lab 02/24/17 10:05 03/10/17 04:46 Most recent lab results ABG pH 7.450 pH Units (7.350-7.450) 12/05/16 Unknown ABG pCO2 29.6 mm Hg 12/05/16 Unknown ABG pO2 75.2 mm Hg (80.0-90.0) L 12/05/16 Unknown ABG HCO3 20.1 mmol/L (20.0-26.0) 12/05/16 Unknown ABG O2 Saturation 96.8 % (95.0-99.0) 12/05/16 Unknown Calcium 8.2 mg/dL (8.4-10.2) L 03/10/17 04:46 Phosphorus 3.10 mg/dL (2.5-4.5) D 03/10/17 04:46 Magnesium 1.90 mg/dL (1.7-2.3) 03/10/17 04:46 Urine Creatinine 19.7 mg/dL (0.1-20.0) 11/12/16 10:18 Urine Sodium 36 mEq/L 09/16/16 19:19 Urine Total Protein 16 mg/dL (5-11.8) H 09/16/16 19:19
[2017-03-12] MEDS: LEVOPHED DRIP 4 MG/NS 250 ML 4 MG/250 ML BAG IV SCH (18:01)
[2017-03-12] MEDS ORDERED: TPN ADULT IV SCH ×2 (20:00)
[2017-03-12] MEDS: CORDARONE 900 MG in D5W 482 ML IV SCH (22:36)
[2017-03-13] MEDS: HumuLIN R SUB-Q SCH ×2 (06:03→18:52)
[2017-03-13] MEDS: LOPRESSOR IV SCH ×5 (06:04→23:19)
[2017-03-13 06:26] LABS: Calcium 9.2 mg/dL (8.4-10.2)
[2017-03-13] MEDS: REGLAN IV SCH ×3 (06:34→22:58)
[2017-03-13] MEDS: FLAGYL 500 MG/100 ML 500 MG/100 ML BAG IV SCH ×3 (06:34→22:58)
[2017-03-13] MEDS: DUONEB *Not for PRN Use IH SCH ×3 (08:01→21:13)
--- NOTE | 2017-03-13 08:32 | Progress Note ---
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 UF as tolerated. Patient's serum creatinine is noted to be low - due to wasting of muscle mass. Needs to be maintained on dialysis at this time. * hypercalcemia work up - likely due to immobilization * Adjust Ca bath with dialysis prn * Transfuse pRBC per primary team. Epogen TIW prn * Vent management per pulm/CCM * Pressors prn for MAP>65 * Dose medications for renal function Subjective Date of service: 03/13/17 Principal diagnosis: Acute resp failure on MVS; S/P Acute CVA; Acute Encephalopathy; JUANITA Interval history: new events from last pm noted Objective - Exam Narrative Exam: Gen. appearance: Patient lying in bed, no apparent distress, 4. restraints HEENT: Normocephalic, atraumatic, pupils equally round and reactive to light, extraocular movement intact, and no sclericterus,. No JVD or thyromegaly or nodule,neck supple, no carotid bruit ,mucous membranes moist, unable to examine oral cavity Heart: S1, S2, regular rate and rhythm Lungs: Clear to auscultation bilaterally, breathing comfortable Abdomen: Positive bowel sounds, nontender, nondistended, no organomegaly Extremity: No edema, cyanosis, clubbing Skin: No rash, nodules, warm, dry Neuro: Difficult to assess, facial droop, moves all 4 extremities - Vital Signs Vital signs: Vital Signs - 12hr 03/12/17 03/12/17 03/12/17 21:00 21:30 21:44 Temperature Pulse Rate 83 83 86 Pulse Rate [ Throughout] Respiratory 25 H 23 27 H Rate Respiratory Rate [ Throughout] Blood Pressure 126/72 123/73 125/72 O2 Sat by Pulse 100 100 100 Oximetry 03/12/17 03/12/17 03/12/17 22:00 22:30 23:00 Temperature Pulse Rate 85 82 82 Pulse Rate [ Throughout] Respiratory 24 24 27 H Rate Respiratory Rate [ Throughout] Blood Pressure 114/71 118/63 112/64 O2 Sat by Pulse 100 100 100 Oximetry 03/12/17 03/12/17 03/13/17 23:30 23:33 00:00 Temperature 97.8 F Pulse Rate 82 82 82 Pulse Rate [ Throughout] Respiratory 26 H 20 Rate Respiratory Rate [ Throughout] Blood Pressure 108/60 122/69 O2 Sat by Pulse 100 100 100 Oximetry 03/13/17 03/13/17 03/13/17 00:30 01:00 01:30 Temperature Pulse Rate 82 81 85 Pulse Rate [ Throughout] Respiratory 25 H 26 H 23 Rate Respiratory Rate [ Throughout] Blood Pressure 104/55 101/61 121/74 O2 Sat by Pulse 98 100 Oximetry 03/13/17 03/13/17 03/13/17 02:00 02:30 03:00 Temperature Pulse Rate 81 81 79 Pulse Rate [ Throughout] Respiratory 23 24 24 Rate Respiratory Rate [ Throughout] Blood Pressure 119/70 112/67 114/67 O2 Sat by Pulse 99 100 100 Oximetry 03/13/17 03/13/17 03/13/17 03:17 03:30 04:00 Temperature 98.8 F Pulse Rate 83 80 Pulse Rate [ Throughout] Respiratory 20 23 Rate Respiratory Rate [ Throughout] Blood Pressure 126/73 125/73 O2 Sat by Pulse 100 100 Oximetry 03/13/17 03/13/17 03/13/17 04:30 05:00 05:16 Temperature Pulse Rate 98 H 82 83 Pulse Rate [ Throughout] Respiratory 25 H 27 H Rate Respiratory Rate [ Throughout] Blood Pressure 125/81 114/71 114/71 O2 Sat by Pulse 90 100 100 Oximetry 03/13/17 03/13/17 03/13/17 05:30 06:00 06:04 Temperature Pulse Rate 84 85 78 Pulse Rate [ Throughout] Respiratory 25 H 27 H Rate Respiratory Rate [ Throughout] Blood Pressure 111/71 102/61 107/68 O2 Sat by Pulse 100 100 Oximetry 03/13/17 03/13/17 03/13/17 06:05 06:30 07:00 Temperature Pulse Rate 77 86 85 Pulse Rate [ Throughout] Respiratory 23 27 H Rate Respiratory Rate [ Throughout] Blood Pressure 112/56 104/63 105/66 O2 Sat by Pulse 100 100 Oximetry 03/13/17 03/13/17 03/13/17 07:30 07:58 08:00 Temperature 97.7 F Pulse Rate 81 81 82 Pulse Rate [ 83 Throughout] Respiratory 25 H 27 H 15 Rate Respiratory 29 H Rate [ Throughout] Blood Pressure 97/59 102/55 108/66 O2 Sat by Pulse 100 100 100 Oximetry 03/13/17 08:25 Temperature Pulse Rate 82 Pulse Rate [ Throughout] Respiratory Rate Respiratory Rate [ Throughout] Blood Pressure 105/62 O2 Sat by Pulse Oximetry - Lab 02/24/17 10:05 03/13/17 05:39 Most recent lab results ABG pH 7.450 pH Units (7.350-7.450) 12/05/16 Unknown ABG pCO2 29.6 mm Hg 12/05/16 Unknown ABG pO2 75.2 mm Hg (80.0-90.0) L 12/05/16 Unknown ABG HCO3 20.1 mmol/L (20.0-26.0) 12/05/16 Unknown ABG O2 Saturation 96.8 % (95.0-99.0) 12/05/16 Unknown Calcium 9.2 mg/dL (8.4-10.2) 03/13/17 05:39 Phosphorus 3.00 mg/dL (2.5-4.5) 03/13/17 05:39 Magnesium 1.90 mg/dL (1.7-2.3) 03/13/17 05:39 Urine Creatinine 19.7 mg/dL (0.1-20.0) 11/12/16 10:18 Urine Sodium 36 mEq/L 09/16/16 19:19 Urine Total Protein 16 mg/dL (5-11.8) H 09/16/16 19:19
--- NOTE | 2017-03-13 10:30 | Progress Note ---
Assessment and Plan Assessment: 1) Recurrent SIRS: new septic shock ? - Likely due to recurrent Enterococcus bacteremia ? intrabdominal source ? PIV infected 2) History of Peritonitis: from gastric perforation from dislodged PEG with significant ascites -S/P exlap, repair of gastric perforation with wedge gastrectomy, abdominal washout, drain placement on 10/05 3) History of Candidemia: -Blood cultures positive for Silvia albicans on 09/23 and 09/25 -Blood cultures negative on 09/30 -PICC line changed on 10/03 -Source ? gastric perf (PEG placed on 09/20) +/- TPN +/- central lines -TTE 10/07 no vegetations -PICC exchanged on 10/03 -fully treated with micafungin for 14 days last day 10/13 4) History CA-UTI s/p gutierrez exchanged 5) Diarrhea - ? etiology ? antibiotic-induced, not better. 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 from GI bleed 13) Recent abdominal wall abscess at surgical site-treated 14 ) Recent Enterococcal bacteremia from PICC line infection. 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 -S/P debridement at bedside - new wound cx 01/24 +Proteus and MDR Pseudomonas (resistant to meropenem and cefepime/sensitive to ceftazidime) and wound VAC placement -CRP=24 --> 8 16) Presumed VAP: sputum + MDR Pseudomonas / Proteus / pleural effusion s/p thoracentesis 17) Resp failure - better 18) Perforated bowel: Ct showed presumed perf bowel with free air -repeat CT showed large 21x4.2 cm collection 19) Enterococcal septicemia from IV cath. TTE no vegetations 18) PIV site infection s/p line removed on 03/09 tip + Enterococcus Plan: -surg eval - pending -PIV with purulence was removed -if not candidate for surgery call radiology for CT guided drainage -continue cefepime and flagyl -day 4 -continue vancomycin for now total 14 days from perm cath removal until 03/16 [address] Dr Pierre for your consultation, will follow up with you. Pauline Carias MD Infectious Diseases Specialist [facility] ([facility]) M [phone] O [phone] Subjective Date of service: 03/13/17 Principal diagnosis: Acute resp failure on MVS; S/P Acute CVA; Acute Encephalopathy; JUANITA Interval history: Interval history: remains on the vent, tachy on monitor, on amiodarone gtt, had fever on 03/05, fever resolved, on levophed at 4 mcg/min Microbiology: Blood cultures: 09/13 neg 8/ Silvia albicans 09/25 Silvia 09/29 neg 10/07 neg 11/05 neg 11/07 ngtd 11/22 E faecalis 1 of 4 bottles 11/25 neg 12/27 neg 01/09 ngtd 02/14 ngtd 02/27 Enterococcus durans 1 of 4 bottles 03/06 ngtd PIV tip 03/09 Enterococcus Urine cultures: 09/10 neg 09/13 neg 8/ 10-100K mixed species 10/07 neg 11/05 VRE 11/07 mixed bacteria Respiratory cultures: 09/07 neg 09/13 neg 8/ neg 11/07 MDR Pseudomonas 11/21 tracheal + VRE 01/09 Pseudomonas x 3 and Proteues Pleural effusion: ngtd Wound cultures: 10/17 abd wall wound purulence + Pseudomonas MDR 01/24 GNRs Stool cultures: cath tip 11/07 + [employer] Current Antimicrobials: cefepime 03/09 flagyl 03/09 vanco Previous Antimicrobials: Zosyn 10/07 Vancomycin PO 10/01 Metronidazole 09/25 Micafungin 09/27-10/13 Meropenem 10/10 Vanco 10/17 zosyn 10/21 Cefepime 11/10 vancomyin 11/07 fluconazole 10/19 cefepime 10/29levaquin 11/05 vanco 11/23 meropenem 01/08 ceftaz 01/30 Objective - Exam Narrative Exam: General appearance: alert non communicative, on the vent via trach in mild resp distress, no following commands Eyes: anicteric sclera, moist conjunctivae; PERRLA HENT: Atraumatic; oropharynx limited; Normal external ears. +NGT with greenish secretion Neck: +trach in place; supple, no thyromegaly or lymphadenopathy Lungs: brit coarse BS CV: tachy Abdomen: Soft, tender, +old PEG site no drainage. +iliostomy. Right sided Surgical site x 2 with ostomy bags Extremities: +peripheral edema Skin: sacral area wounds - per wound care STAGE 4 PRESSURE INJURY TO SACRAL MEASURES 7.5X6X2.5, WITH UNDERMINING FROM @9-1 OCLOCK-2.8CM-ULCER CLEANED WITH WOUND WILDLIFE CONSERVATIONIST-ULCER NEW - Sacrum wound measuring 9x11cm. Necrotic tissue noted on the wound edges and in the wound bed Now with a wound VAC Psych: somnolent . Neuro: alert non verbal on the vent. Lines: PICC / gutierrez - Constitutional Vitals: Vital Signs Temp Pulse Resp BP Pulse Ox 97.7 F 82 29 H 105/62 100 03/13/17 08:00 03/13/17 08:25 03/13/17 08:00 03/13/17 08:25 03/13/17 08:00 Temperature -Last 24 Hours Temperature 97.7 F Temperature 98.8 F Temperature 97.8 F Temperature 97.7 F Temperature 98.9 F Temperature 98 F Temperature 98.0 F - Labs CBC & Chem 7: 02/24/17 10:05 03/13/17 05:39 Labs: Abnormal lab results 03/12/17 03/12/17 03/13/17 Range/Units 11:30 17:39 05:01 Sodium (137-145) mmol/L Potassium (3.6-5.0) mmol/L Chloride (98-107) mmol/L BUN (7-17) mg/dL Creatinine (0.7-1.2) mg/dL Glucose (65-100) mg/dL POC Glucose 144 H 151 H 123 H (70-105) 03/13/17 Range/Units 05:39 Sodium 136 L (137-145) mmol/L Potassium 3.4 L (3.6-5.0) mmol/L Chloride 94.6 L (98-107) mmol/L BUN 68 H (7-17) mg/dL Creatinine 2.9 H (0.7-1.2) mg/dL Glucose 105 H (65-100) mg/dL POC Glucose (70-105)
[2017-03-13] MEDS: HEPARIN SUB-Q SCH ×2 (12:00→22:58)
--- NOTE | 2017-03-13 12:04 | Progress Note ---
Assessment and Plan Assessment and plan: 47-year-old female patient multiple medical problems, large CVA , hypoxic encephalopathy , status post cardiac arrest , vegetative state , atrial fibrillation , sepsis , aspiration pneumonia , end-stage renal disease on hemodialysis , multiple sacral and lower extremity decubiti requiring debridement , severe protein calorie malnutrition peritonitis / perforation, multiple surgeries, DO NOT RESUSCITATE status,prolonged hospital stay and poor prognosis, --Febrile illness and sepsis, follow cultures, continue antibiotics per ID, supportive care Catheter tip cultures positive, management per ID --Acute respiratory failure status post tracheostomy vent dependent --Status post cardiac arrest/anoxic encephalopathy/status post tracheostomy --Persistent agitated state/DO NOT RESUSCITATE status, family not ready for hospice --Enterococcal septicemia; continue current management ID following, PRINCE negative for vegetations --Peritonitis ; due to gastric perforation, status post exploratory laparotomy, but gastrostomy, abdominal washout and drain placement, on TPN --End-stage renal disease on hemodialysis --Large CVA; continue current management --Aspiration pneumonia; completed multiple courses of antibiotics, ID following --Atrial fibrillation, intermittent episodes of rapid ventricular rate, continue amiodarone --Severe protein calorie malnutrition; nutrition consult and supportive care --Multiple sacral and lower extremity decubitus ulcers; status post debridement , continue wound care --DO NOT RESUSCITATE status Poor prognosis, had many family meetings in the past, family of areas of patient 's poor prognosis Critical care time 31 minutes - The high probability of a clinically significant, sudden or life threatening deterioration of the [neurologic, CV] system(s) required my full and direct attention, intervention and personal management. The aggregate critical care time was [31] minutes. This time is in addition to time spent performing reported procedures but includes the following: [x] Data Review and interpretation [x] Patient assessment and monitoring of vital signs [x] Documentation [x] Medication orders and management History Interval history: Patient seen and examined this morning Medical records reviewed No new events reported by nursing staff Status post tracheostomy on vent Hospitalist Physical - Constitutional Vitals: Temp Pulse Resp BP Pulse Ox 98.6 F 82 29 H 105/62 100 03/13/17 11:58 03/13/17 08:25 03/13/17 08:00 03/13/17 08:25 03/13/17 08:00 General appearance: Present: no acute distress, cachectic, other (spontaneous opening of eyes, unresponsive) - EENT Eyes: Present: PERRL, EOM intact - Neck Neck: Present: supple - Respiratory Respiratory effort: normal Respiratory: bilateral: diminished, rhonchi, negative: rales, wheezing - Cardiovascular Rhythm: regular Heart Sounds: Present: S1 & S2 - Extremities Extremities: abnormal (contracted, edema) - Abdominal General gastrointestinal: soft, non-tender, non-distended, normal bowel sounds - Integumentary Integumentary: Present: clear, warm - Psychiatric Psychiatric: other (noncommunicative) - Neurologic Neurologic: other (non-communicating) Results - Labs CBC & Chem 7: 02/24/17 10:05 03/13/17 05:39 Labs: Laboratory Last Values WBC 10.2 K/mm3 (4.5-11.0) 02/24/17 10:05 RBC 2.95 M/mm3 (3.65-5.03) L 02/24/17 10:05 Hgb 8.4 gm/dl (10.1-14.3) L 02/24/17 10:05 Hct 25.7 % (30.3-42.9) L 02/24/17 10:05 MCV 87 fl (79-97) 02/24/17 10:05 MCH 28 pg (28-32) 02/24/17 10:05 MCHC 33 % (30-34) 02/24/17 10:05 RDW 20.8 % (13.2-15.2) H 02/24/17 10:05 Plt Count 333 K/mm3 (140-440) 02/24/17 10:05 Lymph % (Auto) 19.8 % (13.4-35.0) 02/24/17 10:05 [place] % (Auto) 7.2 % (0.0-7.3) 02/24/17 10:05 Eos % (Auto) 0.7 % (0.0-4.3) 02/24/17 10:05 Baso % (Auto) 0.5 % (0.0-1.8) 02/24/17 10:05 Lymph # 2.0 K/mm3 (1.2-5.4) 02/24/17 10:05 [place] # 0.7 K/mm3 (0.0-0.8) 02/24/17 10:05 Eos # 0.1 K/mm3 (0.0-0.4) 02/24/17 10:05 Baso # 0.0 K/mm3 (0.0-0.1) 02/24/17 10:05 Add Manual Diff Complete 12/19/16 05:02 Total Counted 100 12/19/16 05:02 Seg Neutrophils % 71.8 % (40.0-70.0) H 02/24/17 10:05 Seg Neuts % (Manual) 64.0 % (40.0-70.0) 12/19/16 05:02 Band Neutrophils % 15.0 % 12/19/16 05:02 Lymphocytes % (Manual) 13.0 % (13.4-35.0) L 12/19/16 05:02 Reactive Lymphs % (Man) 0 % 12/19/16 05:02 Monocytes % (Manual) 7.0 % (0.0-7.3) 12/19/16 05:02 Eosinophils % (Manual) 0 % (0.0-4.3) 12/19/16 05:02 Basophils % (Manual) 1.0 % (0.0-1.8) 12/19/16 05:02 Metamyelocytes % 0 % 12/19/16 05:02 Myelocytes % 0 % 12/19/16 05:02 Promyelocytes % 0 % 12/19/16 05:02 Blast Cells % 0 % 12/19/16 05:02 Nucleated RBC % 1.0 % (0.0-0.9) H 12/19/16 05:02 Seg Neutrophils # 7.3 K/mm3 (1.8-7.7) 02/24/17 10:05 Seg Neutrophils # Man 12.9 K/mm3 (1.8-7.7) H 12/19/16 05:02 Band Neutrophils # 3.0 K/mm3 12/19/16 05:02 Lymphocytes # (Manual) 2.6 K/mm3 (1.2-5.4) 12/19/16 05:02 Abs React Lymphs (Man) 0.0 K/mm3 12/19/16 05:02 Monocytes # (Manual) 1.4 K/mm3 (0.0-0.8) H 12/19/16 05:02 Eosinophils # (Manual) 0.0 K/mm3 (0.0-0.4) 12/19/16 05:02 Basophils # (Manual) 0.2 K/mm3 (0.0-0.1) H 12/19/16 05:02 Metamyelocytes # 0.0 K/mm3 12/19/16 05:02 Myelocytes # 0.0 K/mm3 12/19/16 05:02 Promyelocytes # 0.0 K/mm3 12/19/16 05:02 Blast Cells # 0.0 K/mm3 12/19/16 05:02 Pathologist Review 09/13/16 04:00 WBC Morphology Not Reportable 12/19/16 05:02 Hypersegmented Neuts Not Reportable 12/19/16 05:02 Hyposegmented Neuts Not Reportable 12/19/16 05:02 Hypogranular Neuts Not Reportable 12/19/16 05:02 Smudge Cells Not Reportable 12/19/16 05:02 Toxic Granulation Not Reportable 12/19/16 05:02 Toxic Vacuolation Not Reportable 12/19/16 05:02 Dohle Bodies Not Reportable 12/19/16 05:02 Pelger-Huet Anomaly Not Reportable 12/19/16 05:02 Jasmina Rods Not Reportable 12/19/16 05:02 Platelet Estimate Consistent w auto 12/19/16 05:02 Clumped Platelets Not Reportable 12/19/16 05:02 Plt Clumps, EDTA Not Reportable 12/19/16 05:02 Large Platelets Not Reportable 12/19/16 05:02 Giant Platelets Not Reportable 12/19/16 05:02 Platelet Satelliting Not Reportable 12/19/16 05:02 Plt Morphology Comment Not Reportable 12/19/16 05:02 RBC Morphology Not Reportable 12/19/16 05:02 Dimorphic RBCs Not Reportable 12/19/16 05:02 Polychromasia Not Reportable 12/19/16 05:02 Hypochromasia Not Reportable 12/19/16 05:02 Poikilocytosis Not Reportable 12/19/16 05:02 Anisocytosis Not Reportable 12/19/16 05:02 Microcytosis Not Reportable 12/19/16 05:02 Macrocytosis Not Reportable 12/19/16 05:02 Spherocytes Not Reportable 12/19/16 05:02 Pappenheimer Bodies Not Reportable 12/19/16 05:02 Sickle Cells Not Reportable 12/19/16 05:02 Target Cells Few 12/19/16 05:02 Tear Drop Cells Not Reportable 12/19/16 05:02 Ovalocytes Not Reportable 12/19/16 05:02 Stomatocytes Rare 12/03/16 04:00 Helmet Cells Not Reportable 12/19/16 05:02 Monet-Morse Bodies Not Reportable 12/19/16 05:02 [place] Rings Not Reportable 12/19/16 05:02 [place] Cells Not Reportable 12/19/16 05:02 Bite Cells Not Reportable 12/19/16 05:02 Crenated Cell Not Reportable 12/19/16 05:02 Elliptocytes Not Reportable 12/19/16 05:02 Acanthocytes (Spur) Not Reportable 12/19/16 05:02 Rouleaux Not Reportable 12/19/16 05:02 Hemoglobin C Crystals Not Reportable 12/19/16 05:02 Schistocytes Not Reportable 12/19/16 05:02 Malaria parasites Not Reportable 12/19/16 05:02 ESR > 140.0 mm/Hr (0-20) 09/08/16 11:48 Jun Bodies Not Reportable 12/19/16 05:02 Hem Pathologist Commnt No 12/19/16 05:02 PT 15.4 Sec. (12.2-14.9) H 01/13/17 15:50 INR 1.16 (0.87-1.13) H 01/13/17 15:50 APTT 33.0 Sec. (24.2-36.6) 10/09/16 03:45 Thrombin Time 16.8 Sec. (15.1-19.6) 09/03/16 00:10 Fibrinogen 750 mg/dl (211-480) H 09/08/16 11:48 Lupus Anticoagulant see below 09/12/16 09:59 LA PTT Baseline See scanned report 09/12/16 09:59 dRVVT Confirm Interp Positive (Negative) H 09/12/16 09:59 dRVVT Screen 50:50 See scanned report 09/12/16 09:59 dRVVT Mix Interpret See scanned report 09/12/16 09:59 Protein C Antigen 122 % (70-140) 09/08/16 15:35 Free Protein S 97 % normal (50-147) 09/08/16 15:35 Total Protein S 109 % (70-140) 09/08/16 15:35 Antithrombin III Ag 100 % (80-120) 09/08/16 15:35 Heparin Anti-Xa, Unfract Negative (Negative) 09/29/16 13:35 Factor V Activity 182 % (65-150) H 09/08/16 15:35 POC ABG pH 7.518 (7.35-7.45) H 03/03/17 20:17 ABG pH 7.450 pH Units (7.350-7.450) 12/05/16 Unknown POC ABG pCO2 28.8 (35-45) L 03/03/17 20: ABG pCO2 29.6 mm Hg 12/05/16 Unknown POC ABG pO2 61 (80-105) L 03/03/17 20: ABG pO2 75.2 mm Hg (80.0-90.0) L 12/05/16 Unknown POC ABG HCO3 23.4 03/03/17 20: ABG HCO3 20.1 mmol/L (20.0-26.0) 12/05/16 Unknown POC ABG Total CO2 24 03/03/17 20: POC ABG O2 Sat 94 03/03/17 20: ABG O2 Saturation 96.8 % (95.0-99.0) 12/05/16 Unknown ABG O2 Content 9.9 (0.0-44) 12/05/16 Unknown POC ABG Base Excess 0 03/03/17: ABG Base Excess -3.4 mmol/L (-2.0-3.0) L 12/05/16 Unknown ABG Hemoglobin 7.4 gm/dl (12.0-16.0) L 12/05/16 Unknown ABG Carboxyhemoglobin 1.8 % (0.0-5.0) 12/05/16 Unknown ABG Methemoglobin 0.6 % (0.0-1.5) 12/05/16 Unknown Oxyhemoglobin 94.5 % (95.0-99.0) L 12/05/16 Unknown FiO2 40 % 03/03/17 20:17 Sodium 136 mmol/L (137-145) L 03/13/17 05:39 Potassium 3.4 mmol/L (3.6-5.0) L 03/13/17 05:39 Chloride 94.6 mmol/L (98-107) L 03/13/17 05:39 Carbon Dioxide 22 mmol/L (22-30) 03/13/17 05:39 Anion Gap 23 mmol/L 03/13/17 05:39 BUN 68 mg/dL (7-17) H 03/13/17 05:39 Creatinine 2.9 mg/dL (0.7-1.2) H 03/13/17 05:39 Estimated GFR 21 ml/min 03/13/17 05:39 BUN/Creatinine Ratio 23 % 03/13/17 05:39 Glucose 105 mg/dL (65-100) H 03/13/17 05:39 POC Glucose 123 (70-105) H 03/13/17 05:01 Osmolality 351 Mosm/kg 09/16/16 11:47 Lactic Acid 2.30 mmol/L (0.7-2.0) H* 01/09/17 08:22 Calcium 9.2 mg/dL (8.4-10.2) 03/13/17 05:39 Ionized Calcium 6.0 mg/dL (4.8-5.6) H 02/15/17 19:08 Phosphorus 3.00 mg/dL (2.5-4.5) 03/13/17 05:39 Magnesium 1.90 mg/dL (1.7-2.3) 03/13/17 05:39 Total Bilirubin 0.50 mg/dL (0.1-1.2) 03/06/17 03:52 Direct Bilirubin 0.2 mg/dL (0-0.2) 01/28/17 04:00 Indirect Bilirubin 0.3 mg/dL 01/28/17 04:00 AST 18 units/L (5-40) 03/06/17 03:52 ALT 18 units/L (7-56) 03/06/17 03:52 Alkaline Phosphatase 165 units/L (35-129) H 03/06/17 03:52 Ammonia 27.0 umol/L (25-60) 09/07/16 08:37 Lactate Dehydrogenase 170 units/L (91-180) 01/13/17 15:50 Total Creatine Kinase 121 units/L (30-135) 09/29/16 20:12 CK-MB (CK-2) < 1.0 ng/mL (0.0-4.0) 09/29/16 20:12 CK-MB (CK-2) Rel Index 0.8 (0-4) 09/29/16 20:12 Troponin T 0.204 ng/mL (0.00-0.029) H* 09/29/16 20:12 C-Reactive Protein 8.10 mg/dL (0.00-1.30) H 01/31/17 11:12 Total Protein 7.0 g/dL (6.3-8.2) 03/06/17 03:52 Albumin 1.5 g/dL (3.9-5) L 03/06/17 03:52 Albumin/Globulin Ratio 0.3 % 03/06/17 03:52 Prealbumin 0.110 g/L (0.200-0.400) L 12/29/16 05:15 Triglycerides 55 mg/dL (2-149) 02/06/17 04:45 Cholesterol 31 mg/dL (50-199) L 09/29/16 20:12 LDL Cholesterol Direct 4 mg/dL (50-130) L 09/29/16 20:12 HDL Cholesterol 3 mg/dL (40-59) L 09/29/16 20:12 Cholesterol/HDL Ratio 10.33 % 09/29/16 20:12 Angiotensin Convert Enz See scanned report 09/08/16 11:48 Renin 0.99 ng/mL/h (0.25-5.82) 10/07/16 10:56 Aldosterone <1 ng/dL () 10/07/16 10:56 Aldosterone/Renin Dir see below 10/07/16 10:56 Serotonin Release Assay See scanned report 09/29/16 13:35 25-OH Vitamin D Total 13 ng/mL (30-100) L 02/15/17 19:08 25-Hydroxy Vitamin D2 . 02/15/17 19:08 25-Hydroxy Vitamin D3 . 02/15/17 19:08 TSH 1.010 mlU/mL (0.270-4.200) 09/07/16 08:37 HCG, Qual Negative (Negative) 09/03/16 00:10 PTH Intact 10.88 pg/mL (15-65) L 02/15/17 19:08 Total Cortisol 18.2 mcg/dL () 02/02/17 20:09 Urine Color Yellow (Yellow) 11/05/16 13:09 Urine Turbidity Clear (Clear) 11/05/16 13:09 Urine pH 9.0 (5.0-7.0) H 11/05/16 13:09 Ur Specific [place] 1.011 (1.003-1.030) 11/05/16 13:09 Urine Protein 100 mg/dl mg/dL (Negative) 11/05/16 13:09 Urine Glucose (UA) Neg mg/dL (Negative) 11/05/16 13:09 Urine Ketones Neg mg/dL (Negative) 11/05/16 13:09 Urine Blood Neg (Negative) 11/05/16 13:09 Urine Nitrite Neg (Negative) 11/05/16 13:09 Urine Bilirubin Neg (Negative) 11/05/16 13:09 Urine Urobilinogen < 2.0 mg/dL (<2.0) 11/05/16 13:09 Ur Leukocyte Esterase Neg (Negative) 11/05/16 13:09 Urine WBC (Auto) 4.0 /HPF (0.0-6.0) 11/05/16 13:09 Urine RBC (Auto) 1.0 /HPF (0.0-6.0) 11/05/16 13:09 U Epithel Cells (Auto) 1.0 /HPF (0-13.0) 10/07/16 18:30 Urine Bacteria (Auto) 4+ /HPF (Negative) 11/05/16 13:09 Urine WBC Clumps 2+ /HPF 09/07/16 02:47 Hyaline Casts 4 /LPF 09/07/16 02:47 Urine Mucus Few /HPF 10/07/16 18:30 Urine Yeast (Budding) 3+ /HPF 10/07/16 18:30 Urine Eosinophils None seen (None Seen) 09/07/16 16:00 Urine Total Volume 950 11/12/16 10:18 Urine Creatinine 19.7 mg/dL (0.1-20.0) 11/12/16 10:18 Height (in) 65.0 inches 11/12/16 10:18 Weight (lb) 181.0 lbs 11/12/16 10:18 Creatinine Clearance 5 11/12/16 10:18 Urine Sodium 36 mEq/L 09/16/16 19:19 Urine Total Protein 16 mg/dL (5-11.8) H 09/16/16 19:19 Fluid Type Pleural 01/13/17 12:10 Fluid Color Yellow 01/13/17 12:10 Fluid Appearance Hazy 01/13/17 12:10 Fluid WBC 182 /mm3 01/13/17 12:10 Fluid RBC 41 /mm3 01/13/17 12:10 Fluid Seg Neutrophils 85.0 % 01/13/17 12:10 Fluid Lymphocytes 8.0 % 01/13/17 12:10 Fluid Reactive Lymphs 0 % 01/13/17 12:10 Fluid Monocytes 6.0 % 01/13/17 12:10 Fluid Eosinophils 1.0 % 01/13/17 12:10 Fluid Basophils 0 % 01/13/17 12:10 Fluid Total Protein 3.0 (15.0-45.0) L 01/13/17 12:10 Fluid LDH 1322 01/13/17 12:10 Fluid Comment Diff performed 01/13/17 12:10 Vancomycin Trough 2.3 ug/mL (5.0-20.0) L 09/21/16 13:00 Random Vancomycin 26.0 ug/mL (0-40.0) 03/13/17 05:39 Urine Opiates Screen Presumptive negative 09/03/16 15:11 Urine Methadone Screen Presumptive positive 09/03/16 15:11 Ur Barbiturates Screen Presumptive positive 09/03/16 15:11 Ur Phencyclidine Scrn Presumptive negative 09/03/16 15:11 Ur Amphetamines Screen Presumptive negative 09/03/16 15:11 U Benzodiazepines Scrn Presumptive negative 09/03/16 15:11 Urine Cocaine Screen Presumptive negative 09/03/16 15:11 U Marijuana (THC) Screen Presumptive positive 09/03/16 15:11 Drugs of Abuse Note Disclamer 09/03/16 15:11 Rheumatoid Factor 24 IU/ml (0-13) H 09/08/16 11:48 SAHIL Screen Negative (Negative) 09/07/16 09:20 Proteinase 3 (PR3) Ab <1.0 AI (<1.0) 09/07/16 09:20 Myeloperoxidase Ab <1.0 AI (<1.0) 09/07/16 09:20 Sjogren's Antibody <1.0 AI (<1.0) 09/08/16 15:35 Scl-70 Scleroderma Ab <1.0 AI (<1.0) 09/08/16 15:35 Centromere B Antibody <1.0 AI (<1.0) 09/08/16 12:02 Heparin-induced Plt Ab Negative (Negative) 09/29/16 13:35 UF Heparin High Dose 11 % Release 09/29/16 13:35 SUDHIR UFH Low Dose 0.1 6 % Release 09/29/16 13:35 SUDHIR UFH Low Dose 0.5 8 % Release 09/29/16 13:35 Cardiolipid IgG Ab <14 GPL (<=14) 09/12/16 09:59 Cardiolipid IgA Ab <11 APL (<=11) 09/12/16 09:59 Cardiolipid IgM Ab <12 MPL (<=12) 09/12/16 09:59 Complement C3 148 mg/dL (90-180) 09/07/16 09:20 Complement C4 58 mg/dL (16-47) H 09/07/16 09:20 RPR Nonreactive (Nonreactive) 09/08/16 11:48 Hepatitis A IgM Ab Non-reactive (NonReactive) 09/24/16 14:40 Hep Bs Antigen Non-reactive (Negative) 09/24/16 14:40 Hep B Core IgM Ab Non-reactive (NonReactive) 09/24/16 14:40 Hepatitis C Antibody Non-reactive (NonReactive) 09/24/16 14:40 HIV 1&2 Antibody Rapid Non react (Non React) 09/08/16 11:48 HIV P24 Antigen Non react (Non React) 09/08/16 11:48 Miscellaneous Test Flexitest 1 H 01/09/17 18:45 Blood Type A POSITIVE 02/12/17 10:25 Antibody Screen Negative 02/12/17 10:25 DELORIS Antibody Screen Negative 11/24/16 11:20 Crossmatch See Detail 02/12/17 10:25
--- NOTE | 2017-03-13 13:27 | Progress Note ---
Assessment and Plan Acute Hypoxemic Respiratory Failure (now with exacerbation and back on MVS) Hypertension (unable to receive p.o. meds) Atrial Fibrillation with RVR s/p tracheostomy Acute encephalopathy s/p CVA Oropharyngeal dysphagia Enterococcal bacteremia sepsis syndrome Sacral Decubitus Ulcer (s/p surgical debridement) Anemia Obesity JUANITA now on hemodialysis Enteric Fistula - IR to place drain to keep on with daily t-piece/PSV trials as tolerated - continue scheduled IV metoprolol with hold parameters - follow 2D ECHO re: ? SBE - stop Amiodarone drip once rate better controlled - continue to hold tube feeds due to continued intolerance; continue reglan at 10mg IV q8h - continue NGT to LIS - continue TPN - remains on amiodarone drip for persistent tachycardia - prn CXR's at this point - appreciate surgery input - continue fentanyl patch for pain issues especially s/p debridement - continue wound care per WCT and RN's (she is s/p surgical debridement) - continue anti-infectives per ID recs (Vancomycin now) - prn CRP & lactate levels if clinically indicated (Follow WBC also) - continue TPN administration (Change to PPN re: vascular access issues) - continue robinul & scopolamine for secretion control - continue to wean FiO2 for sats > 94% - continue bronchodilators and pulmonary toilet - VAP bundle addressed - continue to follow electrolytes and correct as necessary - continue GI & VTE prophylaxis - Continue flu & pneumovax per protocol - ethics consult placed and pending .....she remains critically ill on life sustaining interventions including MVS and at risk for further deterioration including ....30' CCT ....care plan discussed at length during team rounds ...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 and this has intermittently been conveyed to family Subjective Date of service: 03/13/17 Principal diagnosis: Acute resp failure on MVS; S/P Acute CVA; Acute Encephalopathy; JUANITA Interval history: Patient is seen today for: Acute resp failure on MVS; S/P Acute CVA; Acute Encephalopathy; JUANITA Seen and examined at bedside; 24hour events reviewed; nursing and respiratory care staff consulted; no adverse overnight events reported to me; remains on MVS ; remains septic; discussed with IR and will place drain in abdominal abscess Objective Vital Signs - 12hr 03/13/17 03/13/17 03/13/17 01:30 02:00 02:30 Temperature Pulse Rate 85 81 81 Pulse Rate [ Throughout] Respiratory 23 23 24 Rate Respiratory Rate [ Throughout] Blood Pressure 121/74 119/70 112/67 O2 Sat by Pulse 99 100 Oximetry 03/13/17 03/13/17 03/13/17 03:00 03:17 03:30 Temperature 98.8 F Pulse Rate 79 83 Pulse Rate [ Throughout] Respiratory 24 20 Rate Respiratory Rate [ Throughout] Blood Pressure 114/67 126/73 O2 Sat by Pulse 100 100 Oximetry 03/13/17 03/13/17 03/13/17 04:00 04:30 05:00 Temperature Pulse Rate 80 98 H 82 Pulse Rate [ Throughout] Respiratory 23 25 H 27 H Rate Respiratory Rate [ Throughout] Blood Pressure 125/73 125/81 114/71 O2 Sat by Pulse 100 90 100 Oximetry 03/13/17 03/13/17 03/13/17 05:16 05:30 06:00 Temperature Pulse Rate 83 84 85 Pulse Rate [ Throughout] Respiratory 25 H 27 H Rate Respiratory Rate [ Throughout] Blood Pressure 114/71 111/71 102/61 O2 Sat by Pulse 100 100 100 Oximetry 03/13/17 03/13/17 03/13/17 06:04 06:05 06:30 Temperature Pulse Rate 78 77 86 Pulse Rate [ Throughout] Respiratory 23 Rate Respiratory Rate [ Throughout] Blood Pressure 107/68 112/56 104/63 O2 Sat by Pulse 100 Oximetry 03/13/17 03/13/17 03/13/17 07:00 07:30 07:58 Temperature Pulse Rate 85 81 81 Pulse Rate [ Throughout] Respiratory 27 H 25 H 27 H Rate Respiratory Rate [ Throughout] Blood Pressure 105/66 97/59 102/55 O2 Sat by Pulse 100 100 100 Oximetry 03/13/17 03/13/17 03/13/17 08:00 08:25 08:30 Temperature 97.7 F Pulse Rate 82 82 81 Pulse Rate [ 83 Throughout] Respiratory 15 27 H Rate Respiratory 29 H Rate [ Throughout] Blood Pressure 108/66 105/62 102/62 O2 Sat by Pulse 100 100 Oximetry 03/13/17 03/13/17 03/13/17 09:00 09:30 10:00 Temperature Pulse Rate 80 78 84 Pulse Rate [ Throughout] Respiratory 26 H 24 30 H Rate Respiratory Rate [ Throughout] Blood Pressure 100/60 98/56 110/61 O2 Sat by Pulse 100 100 96 Oximetry 03/13/17 03/13/17 03/13/17 10:30 11:00 11:30 Temperature Pulse Rate 91 H 87 85 Pulse Rate [ Throughout] Respiratory 25 H 27 H 19 Rate Respiratory Rate [ Throughout] Blood Pressure 88/42 88/39 88/41 O2 Sat by Pulse 100 98 100 Oximetry 03/13/17 03/13/17 03/13/17 11:58 12:00 12:30 Temperature 98.6 F Pulse Rate 85 89 Pulse Rate [ Throughout] Respiratory 24 Rate Respiratory Rate [ Throughout] Blood Pressure 89/47 108/56 O2 Sat by Pulse 100 Oximetry 03/13/17 03/13/17 12:31 12:34 Temperature Pulse Rate 89 86 Pulse Rate [ Throughout] Respiratory 16 Rate Respiratory Rate [ Throughout] Blood Pressure 106/55 106/55 O2 Sat by Pulse 100 100 Oximetry Constitutional: appears uncomfortable, other (not tracking) Eyes: non-icteric, other (tracheostomy tube in midline of neck) ENT: oropharynx moist, oropharyngeal exudate pre, other (midline tracheostomy tube) Neck: supple, no lymphadenopathy, no JVD, other (no thyromegaly) Effort: mildly labored Ascultation: Bilateral: diminished breath sounds (bases R>L), rhonchi (and referred upper airway sounds) Percussion: Bilateral: not dull Cardiovascular: regular rate and rhythm, other (no rubs / murmurs) Gastrointestinal: hypoactive bowel sounds, soft, non-tender, non-distended, other (RLQ & LUQ stomas with colostomy bags) Integumentary: decubitus ulcer (sacral; stage 4 s/p surgical debridement), other (no rash; no cellulitis; poor turgor) Extremities: no cyanosis, pulses normal, no ischemia or petechiae, edema (1+ bilaterally) Neurologic: pupils equal and round, unable to assess, other (encephalopathic) Psychiatric: other (unable to assess) CBC and BMP: 03/15/17 05:03 03/17/17 04:00 ABG, PT/INR, D-dimer: ABG POC ABG pH 7.518 (7.35-7.45) H 03/03/17 20:17 ABG pH 7.450 pH Units (7.350-7.450) 12/05/16 Unknown POC ABG pCO2 28.8 (35-45) L 03/03/17 20: ABG pCO2 29.6 mm Hg 12/05/16 Unknown POC ABG pO2 61 (80-105) L 03/03/17 20:17 ABG pO2 75.2 mm Hg (80.0-90.0) L 12/05/16 Unknown POC ABG HCO3 23.4 03/03/17 20:17 POC ABG Total CO2 24 03/03/17 20:17 POC ABG O2 Sat 94 03/03/17 20:17 ABG O2 Saturation 96.8 % (95.0-99.0) 12/05/16 Unknown PT/INR, D-dimer PT 15.4 Sec. (12.2-14.9) H 01/13/17 15:50 INR 1.16 (0.87-1.13) H 01/13/17 15:50 Abnormal lab findings: Abnormal Labs 09/03/16 09/03/16 09/03/16 00:03 00:10 00:10 WBC 13.9 H RBC 5.95 H Hgb Hct 44.0 H MCV 74 L MCH 22 L MCHC RDW 17.5 H Plt Count Lymph % (Auto) [place] % (Auto) Lymph # [place] # Baso # Seg Neutrophils % Seg Neuts % (Manual) Lymphocytes % (Manual) 54.0 H Monocytes % (Manual) Eosinophils % (Manual) Basophils % (Manual) Nucleated RBC % Seg Neutrophils # Seg Neutrophils # Man Lymphocytes # (Manual) 7.5 H Monocytes # (Manual) Eosinophils # (Manual) Basophils # (Manual) PT INR Fibrinogen dRVVT Confirm Interp Factor V Activity POC ABG pH POC ABG pCO2 POC ABG pO2 ABG pO2 ABG HCO3 ABG Base Excess ABG Hemoglobin Oxyhemoglobin Sodium Potassium 2.8 L* Chloride Carbon Dioxide 21 L BUN Creatinine 1.7 H Glucose 159 H POC Glucose 177 H Lactic Acid Calcium Ionized Calcium Phosphorus Magnesium Direct Bilirubin AST ALT Alkaline Phosphatase Lactate Dehydrogenase Troponin T C-Reactive Protein Total Protein Albumin Prealbumin Triglycerides Cholesterol LDL Cholesterol Direct HDL Cholesterol 25-OH Vitamin D Total PTH Intact Urine pH Urine WBC (Auto) Urine Creatinine Urine Total Protein Fluid Total Protein Vancomycin Trough Rheumatoid Factor Complement C4 Miscellaneous Test Crossmatch 09/03/16 09/03/16 09/03/16 12:12 15:07 16:20 WBC RBC Hgb Hct MCV MCH MCHC RDW Plt Count Lymph % (Auto) [place] % (Auto) Lymph # [place] # Baso # Seg Neutrophils % Seg Neuts % (Manual) Lymphocytes % (Manual) Monocytes % (Manual) Eosinophils % (Manual) Basophils % (Manual) Nucleated RBC % Seg Neutrophils # Seg Neutrophils # Man Lymphocytes # (Manual) Monocytes # (Manual) Eosinophils # (Manual) Basophils # (Manual) PT INR Fibrinogen dRVVT Confirm Interp Factor V Activity POC ABG pH 7.452 H POC ABG pCO2 POC ABG pO2 ABG pO2 ABG HCO3 ABG Base Excess ABG Hemoglobin Oxyhemoglobin Sodium Potassium Chloride Carbon Dioxide BUN Creatinine Glucose POC Glucose 178 H Lactic Acid Calcium Ionized Calcium Phosphorus 2.20 L Magnesium 1.60 L Direct Bilirubin AST ALT Alkaline Phosphatase Lactate Dehydrogenase Troponin T C-Reactive Protein Total Protein Albumin Prealbumin Triglycerides Cholesterol LDL Cholesterol Direct HDL Cholesterol 25-OH Vitamin D Total PTH Intact Urine pH Urine WBC (Auto) Urine Creatinine Urine Total Protein Fluid Total Protein Vancomycin Trough Rheumatoid Factor Complement C4 Miscellaneous Test Crossmatch 09/03/16 09/03/16 09/03/16 17:57 17:58 23:50 WBC RBC Hgb Hct MCV MCH MCHC RDW Plt Count Lymph % (Auto) [place] % (Auto) Lymph # [place] # Baso # Seg Neutrophils % Seg Neuts % (Manual) Lymphocytes % (Manual) Monocytes % (Manual) Eosinophils % (Manual) Basophils % (Manual) Nucleated RBC % Seg Neutrophils # Seg Neutrophils # Man Lymphocytes # (Manual) Monocytes # (Manual) Eosinophils # (Manual) Basophils # (Manual) PT INR Fibrinogen dRVVT Confirm Interp Factor V Activity POC ABG pH POC ABG pCO2 POC ABG pO2 ABG pO2 ABG HCO3 ABG Base Excess ABG Hemoglobin Oxyhemoglobin Sodium Potassium Chloride Carbon Dioxide BUN Creatinine Glucose POC Glucose 162 H 145 H Lactic Acid Calcium Ionized Calcium Phosphorus 2.30 L Magnesium Direct Bilirubin AST ALT Alkaline Phosphatase Lactate Dehydrogenase Troponin T C-Reactive Protein Total Protein Albumin Prealbumin Triglycerides Cholesterol LDL Cholesterol Direct HDL Cholesterol 25-OH Vitamin D Total PTH Intact Urine pH Urine WBC (Auto) Urine Creatinine Urine Total Protein Fluid Total Protein Vancomycin Trough Rheumatoid Factor Complement C4 Miscellaneous Test Crossmatch 09/04/16 09/04/16 09/04/16 03:31 03:31 05:42 WBC RBC Hgb 9.7 L D Hct MCV 72 L MCH 23 L MCHC RDW 17.5 H Plt Count Lymph % (Auto) 11.1 L [place] % (Auto) Lymph # [place] # Baso # Seg Neutrophils % 84.3 H Seg Neuts % (Manual) Lymphocytes % (Manual) Monocytes % (Manual) Eosinophils % (Manual) Basophils % (Manual) Nucleated RBC % Seg Neutrophils # 8.9 H Seg Neutrophils # Man Lymphocytes # (Manual) Monocytes # (Manual) Eosinophils # (Manual) Basophils # (Manual) PT INR Fibrinogen dRVVT Confirm Interp Factor V Activity POC ABG pH POC ABG pCO2 POC ABG pO2 ABG pO2 ABG HCO3 ABG Base Excess ABG Hemoglobin Oxyhemoglobin Sodium 135 L Potassium 2.9 L* Chloride 97.2 L Carbon Dioxide 19 L BUN Creatinine 1.7 H Glucose 170 H POC Glucose 152 H Lactic Acid Calcium Ionized Calcium Phosphorus Magnesium Direct Bilirubin AST ALT Alkaline Phosphatase Lactate Dehydrogenase Troponin T C-Reactive Protein Total Protein Albumin Prealbumin Triglycerides 160 H Cholesterol LDL Cholesterol Direct HDL Cholesterol 31 L 25-OH Vitamin D Total PTH Intact Urine pH Urine WBC (Auto) Urine Creatinine Urine Total Protein Fluid Total Protein Vancomycin Trough Rheumatoid Factor Complement C4 Miscellaneous Test Crossmatch 09/04/16 09/04/16 09/04/16 11:34 17:46 23:29 WBC RBC Hgb Hct MCV MCH MCHC RDW Plt Count Lymph % (Auto) [place] % (Auto) Lymph # [place] # Baso # Seg Neutrophils % Seg Neuts % (Manual) Lymphocytes % (Manual) Monocytes % (Manual) Eosinophils % (Manual) Basophils % (Manual) Nucleated RBC % Seg Neutrophils # Seg Neutrophils # Man Lymphocytes # (Manual) Monocytes # (Manual) Eosinophils # (Manual) Basophils # (Manual) PT INR Fibrinogen dRVVT Confirm Interp Factor V Activity POC ABG pH POC ABG pCO2 POC ABG pO2 ABG pO2 ABG HCO3 ABG Base Excess ABG Hemoglobin Oxyhemoglobin Sodium Potassium Chloride Carbon Dioxide BUN Creatinine Glucose POC Glucose 165 H 210 H 139 H Lactic Acid Calcium Ionized Calcium Phosphorus Magnesium Direct Bilirubin AST ALT Alkaline Phosphatase Lactate Dehydrogenase Troponin T C-Reactive Protein Total Protein Albumin Prealbumin Triglycerides Cholesterol LDL Cholesterol Direct HDL Cholesterol 25-OH Vitamin D Total PTH Intact Urine pH Urine WBC (Auto) Urine Creatinine Urine Total Protein Fluid Total Protein Vancomycin Trough Rheumatoid Factor Complement C4 Miscellaneous Test Crossmatch 09/05/16 09/05/16 09/05/16 04:05 04:05 05:38 WBC RBC Hgb Hct MCV 76 L D MCH 23 L MCHC RDW 17.8 H Plt Count Lymph % (Auto) [place] % (Auto) Lymph # [place] # Baso # Seg Neutrophils % Seg Neuts % (Manual) Lymphocytes % (Manual) Monocytes % (Manual) Eosinophils % (Manual) Basophils % (Manual) Nucleated RBC % Seg Neutrophils # Seg Neutrophils # Man Lymphocytes # (Manual) Monocytes # (Manual) Eosinophils # (Manual) Basophils # (Manual) PT INR Fibrinogen dRVVT Confirm Interp Factor V Activity POC ABG pH POC ABG pCO2 POC ABG pO2 ABG pO2 ABG HCO3 ABG Base Excess ABG Hemoglobin Oxyhemoglobin Sodium 134 L Potassium Chloride Carbon Dioxide 18 L BUN Creatinine 1.8 H Glucose 192 H POC Glucose 175 H Lactic Acid Calcium Ionized Calcium Phosphorus Magnesium Direct Bilirubin AST ALT Alkaline Phosphatase Lactate Dehydrogenase Troponin T C-Reactive Protein Total Protein Albumin Prealbumin Triglycerides Cholesterol LDL Cholesterol Direct HDL Cholesterol 25-OH Vitamin D Total PTH Intact Urine pH Urine WBC (Auto) Urine Creatinine Urine Total Protein Fluid Total Protein Vancomycin Trough Rheumatoid Factor Complement C4 Miscellaneous Test Crossmatch 09/05/16 09/05/16 09/05/16 11:38 17:48 23:22 WBC RBC Hgb Hct MCV MCH MCHC RDW Plt Count Lymph % (Auto) [place] % (Auto) Lymph # [place] # Baso # Seg Neutrophils % Seg Neuts % (Manual) Lymphocytes % (Manual) Monocytes % (Manual) Eosinophils % (Manual) Basophils % (Manual) Nucleated RBC % Seg Neutrophils # Seg Neutrophils # Man Lymphocytes # (Manual) Monocytes # (Manual) Eosinophils # (Manual) Basophils # (Manual) PT INR Fibrinogen dRVVT Confirm Interp Factor V Activity POC ABG pH POC ABG pCO2 POC ABG pO2 ABG pO2 ABG HCO3 ABG Base Excess ABG Hemoglobin Oxyhemoglobin Sodium Potassium Chloride Carbon Dioxide BUN Creatinine Glucose POC Glucose 164 H 186 H 195 H Lactic Acid Calcium Ionized Calcium Phosphorus Magnesium Direct Bilirubin AST ALT Alkaline Phosphatase Lactate Dehydrogenase Troponin T C-Reactive Protein Total Protein Albumin Prealbumin Triglycerides Cholesterol LDL Cholesterol Direct HDL Cholesterol 25-OH Vitamin D Total PTH Intact Urine pH Urine WBC (Auto) Urine Creatinine Urine Total Protein Fluid Total Protein Vancomycin Trough Rheumatoid Factor Complement C4 Miscellaneous Test Crossmatch 0709/06/16 09/06/16 04:12 05:59 07:32 WBC RBC Hgb Hct MCV MCH MCHC RDW Plt Count Lymph % (Auto) [place] % (Auto) Lymph # [place] # Baso # Seg Neutrophils % Seg Neuts % (Manual) Lymphocytes % (Manual) Monocytes % (Manual) Eosinophils % (Manual) Basophils % (Manual) Nucleated RBC % Seg Neutrophils # Seg Neutrophils # Man Lymphocytes # (Manual) Monocytes # (Manual) Eosinophils # (Manual) Basophils # (Manual) PT INR Fibrinogen dRVVT Confirm Interp Factor V Activity POC ABG pH 7.514 H POC ABG pCO2 29.1 L POC ABG pO2 72 L ABG pO2 ABG HCO3 ABG Base Excess ABG Hemoglobin Oxyhemoglobin Sodium 133 L Potassium 3.4 L Chloride 94.9 L Carbon Dioxide 19 L BUN 30 H Creatinine 2.1 H Glucose 139 H POC Glucose 146 H Lactic Acid Calcium Ionized Calcium Phosphorus Magnesium Direct Bilirubin AST ALT Alkaline Phosphatase Lactate Dehydrogenase Troponin T C-Reactive Protein Total Protein Albumin Prealbumin Triglycerides Cholesterol LDL Cholesterol Direct HDL Cholesterol 25-OH Vitamin D Total PTH Intact Urine pH Urine WBC (Auto) Urine Creatinine Urine Total Protein Fluid Total Protein Vancomycin Trough Rheumatoid Factor Complement C4 Miscellaneous Test Crossmatch 09/06/16 09/06/16 09/06/16 11:57 17:58 19:02 WBC RBC Hgb Hct MCV MCH MCHC RDW Plt Count Lymph % (Auto) [place] % (Auto) Lymph # [place] # Baso # Seg Neutrophils % Seg Neuts % (Manual) Lymphocytes % (Manual) Monocytes % (Manual) Eosinophils % (Manual) Basophils % (Manual) Nucleated RBC % Seg Neutrophils # Seg Neutrophils # Man Lymphocytes # (Manual) Monocytes # (Manual) Eosinophils # (Manual) Basophils # (Manual) PT INR Fibrinogen dRVVT Confirm Interp Factor V Activity POC ABG pH 7.465 H POC ABG pCO2 32.0 L POC ABG pO2 ABG pO2 ABG HCO3 ABG Base Excess ABG Hemoglobin Oxyhemoglobin Sodium Potassium Chloride Carbon Dioxide BUN Creatinine Glucose POC Glucose 165 H 160 H Lactic Acid Calcium Ionized Calcium Phosphorus Magnesium Direct Bilirubin AST ALT Alkaline Phosphatase Lactate Dehydrogenase Troponin T C-Reactive Protein Total Protein Albumin Prealbumin Triglycerides Cholesterol LDL Cholesterol Direct HDL Cholesterol 25-OH Vitamin D Total PTH Intact Urine pH Urine WBC (Auto) Urine Creatinine Urine Total Protein Fluid Total Protein Vancomycin Trough Rheumatoid Factor Complement C4 Miscellaneous Test Crossmatch 07/18/17 07/19/17 07/19/17 23:45 02:47 02:47 WBC RBC Hgb Hct MCV MCH MCHC RDW Plt Count Lymph % (Auto) [place] % (Auto) Lymph # [place] # Baso # Seg Neutrophils % Seg Neuts % (Manual) Lymphocytes % (Manual) Monocytes % (Manual) Eosinophils % (Manual) Basophils % (Manual) Nucleated RBC % Seg Neutrophils # Seg Neutrophils # Man Lymphocytes # (Manual) Monocytes # (Manual) Eosinophils # (Manual) Basophils # (Manual) PT INR Fibrinogen dRVVT Confirm Interp Factor V Activity POC ABG pH POC ABG pCO2 POC ABG pO2 ABG pO2 ABG HCO3 ABG Base Excess ABG Hemoglobin Oxyhemoglobin Sodium Potassium Chloride Carbon Dioxide BUN Creatinine Glucose POC Glucose 204 H Lactic Acid Calcium Ionized Calcium Phosphorus Magnesium Direct Bilirubin AST ALT Alkaline Phosphatase Lactate Dehydrogenase Troponin T C-Reactive Protein Total Protein Albumin Prealbumin Triglycerides Cholesterol LDL Cholesterol Direct HDL Cholesterol 25-OH Vitamin D Total PTH Intact Urine pH Urine WBC (Auto) 68.0 H Urine Creatinine 106.1 H Urine Total Protein Fluid Total Protein Vancomycin Trough Rheumatoid Factor Complement C4 Miscellaneous Test Crossmatch 09/07/16 09/07/16 09/07/16 04:50 06:19 06:39 WBC RBC Hgb Hct MCV MCH MCHC RDW Plt Count Lymph % (Auto) [place] % (Auto) Lymph # [place] # Baso # Seg Neutrophils % Seg Neuts % (Manual) Lymphocytes % (Manual) Monocytes % (Manual) Eosinophils % (Manual) Basophils % (Manual) Nucleated RBC % Seg Neutrophils # Seg Neutrophils # Man Lymphocytes # (Manual) Monocytes # (Manual) Eosinophils # (Manual) Basophils # (Manual) PT INR Fibrinogen dRVVT Confirm Interp Factor V Activity POC ABG pH 7.457 H POC ABG pCO2 32.1 L POC ABG pO2 76 L ABG pO2 ABG HCO3 ABG Base Excess ABG Hemoglobin Oxyhemoglobin Sodium 132 L Potassium Chloride 94.7 L Carbon Dioxide BUN 53 H Creatinine 2.9 H Glucose 151 H POC Glucose 149 H Lactic Acid Calcium Ionized Calcium Phosphorus Magnesium Direct Bilirubin AST ALT Alkaline Phosphatase Lactate Dehydrogenase Troponin T C-Reactive Protein Total Protein Albumin Prealbumin Triglycerides Cholesterol LDL Cholesterol Direct HDL Cholesterol 25-OH Vitamin D Total PTH Intact Urine pH Urine WBC (Auto) Urine Creatinine Urine Total Protein Fluid Total Protein Vancomycin Trough Rheumatoid Factor Complement C4 Miscellaneous Test Crossmatch 09/07/16 09/07/16 09/07/16 09:20 11:43 11:43 WBC 19.4 H RBC Hgb 8.3 L Hct 26.4 L D MCV 72 L D MCH 22 L MCHC RDW 17.9 H Plt Count Lymph % (Auto) 8.5 L [place] % (Auto) Lymph # [place] # 1.0 H Baso # Seg Neutrophils % 85.8 H Seg Neuts % (Manual) Lymphocytes % (Manual) Monocytes % (Manual) Eosinophils % (Manual) Basophils % (Manual) Nucleated RBC % Seg Neutrophils # 16.6 H Seg Neutrophils # Man Lymphocytes # (Manual) Monocytes # (Manual) Eosinophils # (Manual) Basophils # (Manual) PT INR Fibrinogen dRVVT Confirm Interp Factor V Activity POC ABG pH POC ABG pCO2 POC ABG pO2 ABG pO2 ABG HCO3 ABG Base Excess ABG Hemoglobin Oxyhemoglobin Sodium 134 L Potassium Chloride 97.2 L Carbon Dioxide 20 L BUN 58 H Creatinine 2.9 H Glucose 147 H POC Glucose Lactic Acid Calcium Ionized Calcium Phosphorus 2.40 L Magnesium 2.40 H Direct Bilirubin AST ALT Alkaline Phosphatase Lactate Dehydrogenase Troponin T C-Reactive Protein Total Protein 5.8 L Albumin 2.2 L Prealbumin Triglycerides Cholesterol LDL Cholesterol Direct HDL Cholesterol 25-OH Vitamin D Total PTH Intact Urine pH Urine WBC (Auto) Urine Creatinine Urine Total Protein Fluid Total Protein Vancomycin Trough Rheumatoid Factor Complement C4 58 H Miscellaneous Test Crossmatch 09/07/16 09/07/16 09/07/16 11:50 16:00 17:31 WBC RBC Hgb Hct MCV MCH MCHC RDW Plt Count Lymph % (Auto) [place] % (Auto) Lymph # [place] # Baso # Seg Neutrophils % Seg Neuts % (Manual) Lymphocytes % (Manual) Monocytes % (Manual) Eosinophils % (Manual) Basophils % (Manual) Nucleated RBC % Seg Neutrophils # Seg Neutrophils # Man Lymphocytes # (Manual) Monocytes # (Manual) Eosinophils # (Manual) Basophils # (Manual) PT INR Fibrinogen dRVVT Confirm Interp Factor V Activity POC ABG pH POC ABG pCO2 POC ABG pO2 158 H ABG pO2 ABG HCO3 ABG Base Excess ABG Hemoglobin Oxyhemoglobin Sodium Potassium Chloride Carbon Dioxide BUN Creatinine Glucose POC Glucose 175 H Lactic Acid Calcium Ionized Calcium Phosphorus Magnesium Direct Bilirubin AST ALT Alkaline Phosphatase Lactate Dehydrogenase Troponin T C-Reactive Protein Total Protein Albumin Prealbumin Triglycerides Cholesterol LDL Cholesterol Direct HDL Cholesterol 25-OH Vitamin D Total PTH Intact Urine pH Urine WBC (Auto) Urine Creatinine 66.3 H Urine Total Protein Fluid Total Protein Vancomycin Trough Rheumatoid Factor Complement C4 Miscellaneous Test Crossmatch 09/07/16 09/08/16 09/08/16 23:50 05:46 06:18 WBC 17.8 H RBC 3.58 L Hgb 8.1 L Hct 25.5 L MCV 71 L MCH 23 L MCHC RDW 18.4 H Plt Count Lymph % (Auto) [place] % (Auto) Lymph # [place] # Baso # Seg Neutrophils % Seg Neuts % (Manual) 92.0 H Lymphocytes % (Manual) 6.0 L Monocytes % (Manual) Eosinophils % (Manual) Basophils % (Manual) Nucleated RBC % Seg Neutrophils # Seg Neutrophils # Man 16.4 H Lymphocytes # (Manual) 1.1 L Monocytes # (Manual) Eosinophils # (Manual) Basophils # (Manual) PT INR Fibrinogen dRVVT Confirm Interp Factor V Activity POC ABG pH POC ABG pCO2 34.3 L POC ABG pO2 71 L ABG pO2 ABG HCO3 ABG Base Excess ABG Hemoglobin Oxyhemoglobin Sodium Potassium Chloride Carbon Dioxide BUN Creatinine Glucose POC Glucose 216 H Lactic Acid Calcium Ionized Calcium Phosphorus Magnesium Direct Bilirubin AST ALT Alkaline Phosphatase Lactate Dehydrogenase Troponin T C-Reactive Protein Total Protein Albumin Prealbumin Triglycerides Cholesterol LDL Cholesterol Direct HDL Cholesterol 25-OH Vitamin D Total PTH Intact Urine pH Urine WBC (Auto) Urine Creatinine Urine Total Protein Fluid Total Protein Vancomycin Trough Rheumatoid Factor Complement C4 Miscellaneous Test Crossmatch 09/08/16 09/08/16 09/08/16 06:18 06:51 10:55 WBC RBC Hgb Hct MCV MCH MCHC RDW Plt Count Lymph % (Auto) [place] % (Auto) Lymph # [place] # Baso # Seg Neutrophils % Seg Neuts % (Manual) Lymphocytes % (Manual) Monocytes % (Manual) Eosinophils % (Manual) Basophils % (Manual) Nucleated RBC % Seg Neutrophils # Seg Neutrophils # Man Lymphocytes # (Manual) Monocytes # (Manual) Eosinophils # (Manual) Basophils # (Manual) PT INR Fibrinogen dRVVT Confirm Interp Factor V Activity POC ABG pH POC ABG pCO2 POC ABG pO2 ABG pO2 ABG HCO3 ABG Base Excess ABG Hemoglobin Oxyhemoglobin Sodium 133 L Potassium Chloride 96.9 L Carbon Dioxide 20 L BUN 63 H Creatinine 2.7 H Glucose 195 H POC Glucose 204 H 169 H Lactic Acid Calcium Ionized Calcium Phosphorus Magnesium Direct Bilirubin AST ALT Alkaline Phosphatase Lactate Dehydrogenase Troponin T C-Reactive Protein Total Protein Albumin Prealbumin Triglycerides Cholesterol LDL Cholesterol Direct HDL Cholesterol 25-OH Vitamin D Total PTH Intact Urine pH Urine WBC (Auto) Urine Creatinine Urine Total Protein Fluid Total Protein Vancomycin Trough Rheumatoid Factor Complement C4 Miscellaneous Test Crossmatch 09/08/16 09/08/16 09/08/16 11:48 11:48 11:48 WBC RBC Hgb Hct MCV MCH MCHC RDW Plt Count Lymph % (Auto) [place] % (Auto) Lymph # [place] # Baso # Seg Neutrophils % Seg Neuts % (Manual) Lymphocytes % (Manual) Monocytes % (Manual) Eosinophils % (Manual) Basophils % (Manual) Nucleated RBC % Seg Neutrophils # Seg Neutrophils # Man Lymphocytes # (Manual) Monocytes # (Manual) Eosinophils # (Manual) Basophils # (Manual) PT INR Fibrinogen 750 H dRVVT Confirm Interp Factor V Activity POC ABG pH POC ABG pCO2 POC ABG pO2 ABG pO2 ABG HCO3 ABG Base Excess ABG Hemoglobin Oxyhemoglobin Sodium Potassium Chloride Carbon Dioxide BUN Creatinine Glucose POC Glucose Lactic Acid Calcium Ionized Calcium Phosphorus Magnesium Direct Bilirubin AST ALT Alkaline Phosphatase Lactate Dehydrogenase Troponin T C-Reactive Protein 15.70 H Total Protein Albumin Prealbumin Triglycerides Cholesterol LDL Cholesterol Direct HDL Cholesterol 25-OH Vitamin D Total PTH Intact Urine pH Urine WBC (Auto) Urine Creatinine Urine Total Protein Fluid Total Protein Vancomycin Trough Rheumatoid Factor 24 H Complement C4 Miscellaneous Test Crossmatch 09/08/16 09/08/16 09/09/16 15:35 18:25 00:24 WBC RBC Hgb Hct MCV MCH MCHC RDW Plt Count Lymph % (Auto) [place] % (Auto) Lymph # [place] # Baso # Seg Neutrophils % Seg Neuts % (Manual) Lymphocytes % (Manual) Monocytes % (Manual) Eosinophils % (Manual) Basophils % (Manual) Nucleated RBC % Seg Neutrophils # Seg Neutrophils # Man Lymphocytes # (Manual) Monocytes # (Manual) Eosinophils # (Manual) Basophils # (Manual) PT INR Fibrinogen dRVVT Confirm Interp Factor V Activity 182 H POC ABG pH POC ABG pCO2 POC ABG pO2 ABG pO2 ABG HCO3 ABG Base Excess ABG Hemoglobin Oxyhemoglobin Sodium Potassium Chloride Carbon Dioxide BUN Creatinine Glucose POC Glucose 184 H 216 H Lactic Acid Calcium Ionized Calcium Phosphorus Magnesium Direct Bilirubin AST ALT Alkaline Phosphatase Lactate Dehydrogenase Troponin T C-Reactive Protein Total Protein Albumin Prealbumin Triglycerides Cholesterol LDL Cholesterol Direct HDL Cholesterol 25-OH Vitamin D Total PTH Intact Urine pH Urine WBC (Auto) Urine Creatinine Urine Total Protein Fluid Total Protein Vancomycin Trough Rheumatoid Factor Complement C4 Miscellaneous Test Crossmatch 09/09/16 09/09/16 09/09/16 03:00 03:00 04:04 WBC 27.9 H RBC Hgb 8.7 L Hct 28.1 L MCV 72 L MCH 22 L MCHC RDW 18.4 H Plt Count 485 H Lymph % (Auto) [place] % (Auto) Lymph # [place] # Baso # Seg Neutrophils % Seg Neuts % (Manual) 77.0 H Lymphocytes % (Manual) 9.0 L Monocytes % (Manual) Eosinophils % (Manual) Basophils % (Manual) Nucleated RBC % Seg Neutrophils # Seg Neutrophils # Man 21.5 H Lymphocytes # (Manual) Monocytes # (Manual) 2.0 H Eosinophils # (Manual) Basophils # (Manual) PT INR Fibrinogen dRVVT Confirm Interp Factor V Activity POC ABG pH POC ABG pCO2 POC ABG pO2 121 H ABG pO2 ABG HCO3 ABG Base Excess ABG Hemoglobin Oxyhemoglobin Sodium 135 L Potassium Chloride 96.3 L Carbon Dioxide 21 L BUN 83 H Creatinine 3.0 H Glucose 135 H POC Glucose Lactic Acid Calcium Ionized Calcium Phosphorus Magnesium Direct Bilirubin AST ALT Alkaline Phosphatase Lactate Dehydrogenase Troponin T C-Reactive Protein Total Protein Albumin Prealbumin Triglycerides Cholesterol LDL Cholesterol Direct HDL Cholesterol 25-OH Vitamin D Total PTH Intact Urine pH Urine WBC (Auto) Urine Creatinine Urine Total Protein Fluid Total Protein Vancomycin Trough Rheumatoid Factor Complement C4 Miscellaneous Test Crossmatch 09/09/16 09/09/16 09/09/16 05:41 11:55 14:13 WBC RBC Hgb Hct MCV MCH MCHC RDW Plt Count Lymph % (Auto) [place] % (Auto) Lymph # [place] # Baso # Seg Neutrophils % Seg Neuts % (Manual) Lymphocytes % (Manual) Monocytes % (Manual) Eosinophils % (Manual) Basophils % (Manual) Nucleated RBC % Seg Neutrophils # Seg Neutrophils # Man Lymphocytes # (Manual) Monocytes # (Manual) Eosinophils # (Manual) Basophils # (Manual) PT INR Fibrinogen dRVVT Confirm Interp Factor V Activity POC ABG pH POC ABG pCO2 POC ABG pO2 ABG pO2 ABG HCO3 ABG Base Excess ABG Hemoglobin Oxyhemoglobin Sodium Potassium Chloride Carbon Dioxide BUN Creatinine Glucose POC Glucose 155 H 186 H Lactic Acid Calcium Ionized Calcium Phosphorus Magnesium Direct Bilirubin AST ALT Alkaline Phosphatase Lactate Dehydrogenase Troponin T C-Reactive Protein Total Protein Albumin Prealbumin Triglycerides Cholesterol LDL Cholesterol Direct HDL Cholesterol 25-OH Vitamin D Total PTH Intact Urine pH Urine WBC (Auto) 25.0 H Urine Creatinine Urine Total Protein Fluid Total Protein Vancomycin Trough Rheumatoid Factor Complement C4 Miscellaneous Test Crossmatch 09/09/16 09/09/16 09/10/16 17:33 23:13 05:09 WBC RBC Hgb Hct MCV MCH MCHC RDW Plt Count Lymph % (Auto) [place] % (Auto) Lymph # [place] # Baso # Seg Neutrophils % Seg Neuts % (Manual) Lymphocytes % (Manual) Monocytes % (Manual) Eosinophils % (Manual) Basophils % (Manual) Nucleated RBC % Seg Neutrophils # Seg Neutrophils # Man Lymphocytes # (Manual) Monocytes # (Manual) Eosinophils # (Manual) Basophils # (Manual) PT INR Fibrinogen dRVVT Confirm Interp Factor V Activity POC ABG pH POC ABG pCO2 POC ABG pO2 74 L ABG pO2 ABG HCO3 ABG Base Excess ABG Hemoglobin Oxyhemoglobin Sodium Potassium Chloride Carbon Dioxide BUN Creatinine Glucose POC Glucose 211 H 215 H Lactic Acid Calcium Ionized Calcium Phosphorus Magnesium Direct Bilirubin AST ALT Alkaline Phosphatase Lactate Dehydrogenase Troponin T C-Reactive Protein Total Protein Albumin Prealbumin Triglycerides Cholesterol LDL Cholesterol Direct HDL Cholesterol 25-OH Vitamin D Total PTH Intact Urine pH Urine WBC (Auto) Urine Creatinine Urine Total Protein Fluid Total Protein Vancomycin Trough Rheumatoid Factor Complement C4 Miscellaneous Test Crossmatch 09/10/16 09/10/16 09/10/16 05:17 05:17 11:31 WBC 15.8 H RBC 3.25 L Hgb 7.3 L Hct 22.9 L MCV 71 L MCH 23 L MCHC RDW 18.4 H Plt Count Lymph % (Auto) [place] % (Auto) Lymph # [place] # Baso # Seg Neutrophils % Seg Neuts % (Manual) 91.0 H Lymphocytes % (Manual) 4.0 L Monocytes % (Manual) Eosinophils % (Manual) Basophils % (Manual) Nucleated RBC % Seg Neutrophils # Seg Neutrophils # Man 14.4 H Lymphocytes # (Manual) 0.6 L Monocytes # (Manual) Eosinophils # (Manual) Basophils # (Manual) PT INR Fibrinogen dRVVT Confirm Interp Factor V Activity POC ABG pH POC ABG pCO2 POC ABG pO2 ABG pO2 ABG HCO3 ABG Base Excess ABG Hemoglobin Oxyhemoglobin Sodium Potassium Chloride Carbon Dioxide 21 L BUN 93 H Creatinine 2.9 H Glucose 146 H POC Glucose 188 H Lactic Acid Calcium 8.1 L Ionized Calcium Phosphorus Magnesium Direct Bilirubin AST ALT Alkaline Phosphatase Lactate Dehydrogenase Troponin T C-Reactive Protein Total Protein Albumin Prealbumin Triglycerides Cholesterol LDL Cholesterol Direct HDL Cholesterol 25-OH Vitamin D Total PTH Intact Urine pH Urine WBC (Auto) Urine Creatinine Urine Total Protein Fluid Total Protein Vancomycin Trough Rheumatoid Factor Complement C4 Miscellaneous Test Crossmatch 09/10/16 09/10/16 09/10/16 13:17 17:20 23:32 WBC RBC Hgb Hct MCV MCH MCHC RDW Plt Count Lymph % (Auto) [place] % (Auto) Lymph # [place] # Baso # Seg Neutrophils % Seg Neuts % (Manual) Lymphocytes % (Manual) Monocytes % (Manual) Eosinophils % (Manual) Basophils % (Manual) Nucleated RBC % Seg Neutrophils # Seg Neutrophils # Man Lymphocytes # (Manual) Monocytes # (Manual) Eosinophils # (Manual) Basophils # (Manual) PT INR Fibrinogen dRVVT Confirm Interp Factor V Activity POC ABG pH POC ABG pCO2 POC ABG pO2 ABG pO2 ABG HCO3 ABG Base Excess ABG Hemoglobin Oxyhemoglobin Sodium Potassium Chloride Carbon Dioxide BUN Creatinine Glucose POC Glucose 199 H 186 H Lactic Acid Calcium Ionized Calcium Phosphorus Magnesium Direct Bilirubin AST ALT Alkaline Phosphatase Lactate Dehydrogenase Troponin T C-Reactive Protein Total Protein Albumin Prealbumin Triglycerides Cholesterol LDL Cholesterol Direct HDL Cholesterol 25-OH Vitamin D Total PTH Intact Urine pH Urine WBC (Auto) Urine Creatinine Urine Total Protein Fluid Total Protein Vancomycin Trough Rheumatoid Factor Complement C4 Miscellaneous Test Crossmatch See Detail 09/11/16 09/11/16 09/11/16 05:10 05:10 05:17 WBC 28.4 H RBC Hgb 9.2 L Hct 29.3 L D MCV 73 L MCH 23 L MCHC RDW 18.9 H Plt Count 452 H Lymph % (Auto) [place] % (Auto) Lymph # [place] # Baso # Seg Neutrophils % Seg Neuts % (Manual) 89.5 H Lymphocytes % (Manual) 2.0 L Monocytes % (Manual) Eosinophils % (Manual) Basophils % (Manual) Nucleated RBC % Seg Neutrophils # Seg Neutrophils # Man 25.4 H Lymphocytes # (Manual) 0.6 L Monocytes # (Manual) 1.3 H Eosinophils # (Manual) Basophils # (Manual) PT INR Fibrinogen dRVVT Confirm Interp Factor V Activity POC ABG pH POC ABG pCO2 POC ABG pO2 ABG pO2 ABG HCO3 ABG Base Excess ABG Hemoglobin Oxyhemoglobin Sodium 136 L Potassium Chloride Carbon Dioxide 18 L BUN 107 H Creatinine 2.6 H Glucose 187 H POC Glucose 230 H Lactic Acid Calcium 8.3 L Ionized Calcium Phosphorus Magnesium Direct Bilirubin AST ALT Alkaline Phosphatase Lactate Dehydrogenase Troponin T C-Reactive Protein Total Protein Albumin Prealbumin Triglycerides Cholesterol LDL Cholesterol Direct HDL Cholesterol 25-OH Vitamin D Total PTH Intact Urine pH Urine WBC (Auto) Urine Creatinine Urine Total Protein Fluid Total Protein Vancomycin Trough Rheumatoid Factor Complement C4 Miscellaneous Test Crossmatch 09/11/16 09/11/16 09/11/16 05:55 12:02 17:32 WBC RBC Hgb Hct MCV MCH MCHC RDW Plt Count Lymph % (Auto) [place] % (Auto) Lymph # [place] # Baso # Seg Neutrophils % Seg Neuts % (Manual) Lymphocytes % (Manual) Monocytes % (Manual) Eosinophils % (Manual) Basophils % (Manual) Nucleated RBC % Seg Neutrophils # Seg Neutrophils # Man Lymphocytes # (Manual) Monocytes # (Manual) Eosinophils # (Manual) Basophils # (Manual) PT INR Fibrinogen dRVVT Confirm Interp Factor V Activity POC ABG pH POC ABG pCO2 33.8 L POC ABG pO2 ABG pO2 ABG HCO3 ABG Base Excess ABG Hemoglobin Oxyhemoglobin Sodium Potassium Chloride Carbon Dioxide BUN Creatinine Glucose POC Glucose 191 H 239 H Lactic Acid Calcium Ionized Calcium Phosphorus Magnesium Direct Bilirubin AST ALT Alkaline Phosphatase Lactate Dehydrogenase Troponin T C-Reactive Protein Total Protein Albumin Prealbumin Triglycerides Cholesterol LDL Cholesterol Direct HDL Cholesterol 25-OH Vitamin D Total PTH Intact Urine pH Urine WBC (Auto) Urine Creatinine Urine Total Protein Fluid Total Protein Vancomycin Trough Rheumatoid Factor Complement C4 Miscellaneous Test Crossmatch 09/11/16 09/12/16 09/12/16 23:52 05:09 05:32 WBC RBC Hgb Hct MCV MCH MCHC RDW Plt Count Lymph % (Auto) [place] % (Auto) Lymph # [place] # Baso # Seg Neutrophils % Seg Neuts % (Manual) Lymphocytes % (Manual) Monocytes % (Manual) Eosinophils % (Manual) Basophils % (Manual) Nucleated RBC % Seg Neutrophils # Seg Neutrophils # Man Lymphocytes # (Manual) Monocytes # (Manual) Eosinophils # (Manual) Basophils # (Manual) PT INR Fibrinogen dRVVT Confirm Interp Factor V Activity POC ABG pH POC ABG pCO2 34.6 L POC ABG pO2 ABG pO2 ABG HCO3 ABG Base Excess ABG Hemoglobin Oxyhemoglobin Sodium Potassium Chloride Carbon Dioxide BUN Creatinine Glucose POC Glucose 265 H 184 H Lactic Acid Calcium Ionized Calcium Phosphorus Magnesium Direct Bilirubin AST ALT Alkaline Phosphatase Lactate Dehydrogenase Troponin T C-Reactive Protein Total Protein Albumin Prealbumin Triglycerides Cholesterol LDL Cholesterol Direct HDL Cholesterol 25-OH Vitamin D Total PTH Intact Urine pH Urine WBC (Auto) Urine Creatinine Urine Total Protein Fluid Total Protein Vancomycin Trough Rheumatoid Factor Complement C4 Miscellaneous Test Crossmatch 09/12/16 09/12/16 09/12/16 06:45 06:45 07:22 WBC 31.7 H RBC 3.54 L Hgb 8.3 L Hct 25.9 L MCV 73 L MCH 23 L MCHC RDW 18.9 H Plt Count Lymph % (Auto) [place] % (Auto) Lymph # [place] # Baso # Seg Neutrophils % Seg Neuts % (Manual) 88.5 H Lymphocytes % (Manual) 4.5 L Monocytes % (Manual) Eosinophils % (Manual) Basophils % (Manual) Nucleated RBC % Seg Neutrophils # Seg Neutrophils # Man 28.1 H Lymphocytes # (Manual) Monocytes # (Manual) 1.0 H Eosinophils # (Manual) Basophils # (Manual) PT INR Fibrinogen dRVVT Confirm Interp Factor V Activity POC ABG pH POC ABG pCO2 POC ABG pO2 ABG pO2 ABG HCO3 ABG Base Excess ABG Hemoglobin Oxyhemoglobin Sodium Potassium Chloride Carbon Dioxide 20 L BUN 115 H Creatinine 2.7 H Glucose 165 H POC Glucose Lactic Acid Calcium 8.0 L Ionized Calcium Phosphorus Magnesium Direct Bilirubin AST ALT Alkaline Phosphatase Lactate Dehydrogenase Troponin T C-Reactive Protein Total Protein Albumin Prealbumin Triglycerides 217 H Cholesterol LDL Cholesterol Direct HDL Cholesterol 25-OH Vitamin D Total PTH Intact Urine pH Urine WBC (Auto) Urine Creatinine Urine Total Protein Fluid Total Protein Vancomycin Trough Rheumatoid Factor Complement C4 Miscellaneous Test Crossmatch 09/12/16 09/12/16 09/12/16 07:22 09:59 12:21 WBC RBC Hgb Hct MCV MCH MCHC RDW Plt Count Lymph % (Auto) [place] % (Auto) Lymph # [place] # Baso # Seg Neutrophils % Seg Neuts % (Manual) Lymphocytes % (Manual) Monocytes % (Manual) Eosinophils % (Manual) Basophils % (Manual) Nucleated RBC % Seg Neutrophils # Seg Neutrophils # Man Lymphocytes # (Manual) Monocytes # (Manual) Eosinophils # (Manual) Basophils # (Manual) PT INR Fibrinogen dRVVT Confirm Interp Positive H Factor V Activity POC ABG pH POC ABG pCO2 POC ABG pO2 ABG pO2 ABG HCO3 ABG Base Excess ABG Hemoglobin Oxyhemoglobin Sodium Potassium Chloride Carbon Dioxide BUN Creatinine Glucose POC Glucose 224 H Lactic Acid Calcium Ionized Calcium Phosphorus Magnesium Direct Bilirubin AST ALT Alkaline Phosphatase Lactate Dehydrogenase Troponin T C-Reactive Protein 1.70 H Total Protein Albumin Prealbumin Triglycerides Cholesterol LDL Cholesterol Direct HDL Cholesterol 25-OH Vitamin D Total PTH Intact Urine pH Urine WBC (Auto) Urine Creatinine Urine Total Protein Fluid Total Protein Vancomycin Trough Rheumatoid Factor Complement C4 Miscellaneous Test Crossmatch 09/12/16 09/12/16 09/13/16 16:51 23:28 04:00 WBC 45.0 H* RBC Hgb 9.4 L Hct MCV 75 L MCH 23 L MCHC RDW 19.0 H Plt Count 470 H Lymph % (Auto) [place] % (Auto) Lymph # [place] # Baso # Seg Neutrophils % Seg Neuts % (Manual) 89.0 H Lymphocytes % (Manual) 5.0 L Monocytes % (Manual) Eosinophils % (Manual) Basophils % (Manual) Nucleated RBC % Seg Neutrophils # Seg Neutrophils # Man 40.1 H Lymphocytes # (Manual) Monocytes # (Manual) Eosinophils # (Manual) Basophils # (Manual) PT INR Fibrinogen dRVVT Confirm Interp Factor V Activity POC ABG pH POC ABG pCO2 POC ABG pO2 ABG pO2 ABG HCO3 ABG Base Excess ABG Hemoglobin Oxyhemoglobin Sodium Potassium Chloride Carbon Dioxide BUN Creatinine Glucose POC Glucose 169 H 150 H Lactic Acid Calcium Ionized Calcium Phosphorus Magnesium Direct Bilirubin AST ALT Alkaline Phosphatase Lactate Dehydrogenase Troponin T C-Reactive Protein Total Protein Albumin Prealbumin Triglycerides Cholesterol LDL Cholesterol Direct HDL Cholesterol 25-OH Vitamin D Total PTH Intact Urine pH Urine WBC (Auto) Urine Creatinine Urine Total Protein Fluid Total Protein Vancomycin Trough Rheumatoid Factor Complement C4 Miscellaneous Test Crossmatch 09/13/16 09/13/16 09/13/16 04:00 11:26 17:31 WBC RBC Hgb Hct MCV MCH MCHC RDW Plt Count Lymph % (Auto) [place] % (Auto) Lymph # [place] # Baso # Seg Neutrophils % Seg Neuts % (Manual) Lymphocytes % (Manual) Monocytes % (Manual) Eosinophils % (Manual) Basophils % (Manual) Nucleated RBC % Seg Neutrophils # Seg Neutrophils # Man Lymphocytes # (Manual) Monocytes # (Manual) Eosinophils # (Manual) Basophils # (Manual) PT INR Fibrinogen dRVVT Confirm Interp Factor V Activity POC ABG pH POC ABG pCO2 POC ABG pO2 ABG pO2 ABG HCO3 ABG Base Excess ABG Hemoglobin Oxyhemoglobin Sodium Potassium Chloride Carbon Dioxide 20 L BUN 116 H Creatinine 3.0 H Glucose 172 H POC Glucose 140 H 183 H Lactic Acid Calcium Ionized Calcium Phosphorus Magnesium Direct Bilirubin AST ALT Alkaline Phosphatase Lactate Dehydrogenase Troponin T C-Reactive Protein Total Protein 6.2 L Albumin 2.9 L Prealbumin Triglycerides Cholesterol LDL Cholesterol Direct HDL Cholesterol 25-OH Vitamin D Total PTH Intact Urine pH Urine WBC (Auto) Urine Creatinine Urine Total Protein Fluid Total Protein Vancomycin Trough Rheumatoid Factor Complement C4 Miscellaneous Test Crossmatch 09/13/16 09/14/16 09/14/16 23:23 04:06 04:07 WBC 29.4 H RBC Hgb 8.9 L Hct 27.3 L MCV 75 L MCH 24 L MCHC RDW 19.1 H Plt Count Lymph % (Auto) [place] % (Auto) Lymph # [place] # Baso # Seg Neutrophils % Seg Neuts % (Manual) 84.0 H Lymphocytes % (Manual) 6.0 L Monocytes % (Manual) 9.0 H Eosinophils % (Manual) Basophils % (Manual) Nucleated RBC % Seg Neutrophils # Seg Neutrophils # Man 24.7 H Lymphocytes # (Manual) Monocytes # (Manual) 2.6 H Eosinophils # (Manual) Basophils # (Manual) PT INR Fibrinogen dRVVT Confirm Interp Factor V Activity POC ABG pH 7.342 L POC ABG pCO2 POC ABG pO2 116 H ABG pO2 ABG HCO3 ABG Base Excess ABG Hemoglobin Oxyhemoglobin Sodium Potassium Chloride Carbon Dioxide BUN Creatinine Glucose POC Glucose 154 H Lactic Acid Calcium Ionized Calcium Phosphorus Magnesium Direct Bilirubin AST ALT Alkaline Phosphatase Lactate Dehydrogenase Troponin T C-Reactive Protein Total Protein Albumin Prealbumin Triglycerides Cholesterol LDL Cholesterol Direct HDL Cholesterol 25-OH Vitamin D Total PTH Intact Urine pH Urine WBC (Auto) Urine Creatinine Urine Total Protein Fluid Total Protein Vancomycin Trough Rheumatoid Factor Complement C4 Miscellaneous Test Crossmatch 09/14/16 09/14/16 09/14/16 04:07 05:29 12:19 WBC RBC Hgb Hct MCV MCH MCHC RDW Plt Count Lymph % (Auto) [place] % (Auto) Lymph # [place] # Baso # Seg Neutrophils % Seg Neuts % (Manual) Lymphocytes % (Manual) Monocytes % (Manual) Eosinophils % (Manual) Basophils % (Manual) Nucleated RBC % Seg Neutrophils # Seg Neutrophils # Man Lymphocytes # (Manual) Monocytes # (Manual) Eosinophils # (Manual) Basophils # (Manual) PT INR Fibrinogen dRVVT Confirm Interp Factor V Activity POC ABG pH POC ABG pCO2 POC ABG pO2 ABG pO2 ABG HCO3 ABG Base Excess ABG Hemoglobin Oxyhemoglobin Sodium 136 L Potassium Chloride Carbon Dioxide 18 L BUN 121 H Creatinine 2.8 H Glucose 214 H POC Glucose 239 H 181 H Lactic Acid Calcium Ionized Calcium Phosphorus Magnesium Direct Bilirubin AST ALT Alkaline Phosphatase Lactate Dehydrogenase Troponin T C-Reactive Protein Total Protein Albumin Prealbumin Triglycerides Cholesterol LDL Cholesterol Direct HDL Cholesterol 25-OH Vitamin D Total PTH Intact Urine pH Urine WBC (Auto) Urine Creatinine Urine Total Protein Fluid Total Protein Vancomycin Trough Rheumatoid Factor Complement C4 Miscellaneous Test Crossmatch 09/14/16 09/14/16 09/15/16 18:12 23:37 05:00 WBC 26.1 H RBC 3.05 L Hgb 7.2 L Hct 22.9 L MCV 75 L MCH 24 L MCHC RDW 19.0 H Plt Count Lymph % (Auto) [place] % (Auto) Lymph # [place] # Baso # Seg Neutrophils % Seg Neuts % (Manual) Lymphocytes % (Manual) Monocytes % (Manual) Eosinophils % (Manual) Basophils % (Manual) Nucleated RBC % Seg Neutrophils # Seg Neutrophils # Man Lymphocytes # (Manual) Monocytes # (Manual) Eosinophils # (Manual) Basophils # (Manual) PT INR Fibrinogen dRVVT Confirm Interp Factor V Activity POC ABG pH POC ABG pCO2 POC ABG pO2 ABG pO2 ABG HCO3 ABG Base Excess ABG Hemoglobin Oxyhemoglobin Sodium Potassium Chloride Carbon Dioxide BUN Creatinine Glucose POC Glucose 266 H 154 H Lactic Acid Calcium Ionized Calcium Phosphorus Magnesium Direct Bilirubin AST ALT Alkaline Phosphatase Lactate Dehydrogenase Troponin T C-Reactive Protein Total Protein Albumin Prealbumin Triglycerides Cholesterol LDL Cholesterol Direct HDL Cholesterol 25-OH Vitamin D Total PTH Intact Urine pH Urine WBC (Auto) Urine Creatinine Urine Total Protein Fluid Total Protein Vancomycin Trough Rheumatoid Factor Complement C4 Miscellaneous Test Crossmatch 09/15/16 09/15/16 09/15/16 05:00 05:17 12:45 WBC RBC Hgb Hct MCV MCH MCHC RDW Plt Count Lymph % (Auto) [place] % (Auto) Lymph # [place] # Baso # Seg Neutrophils % Seg Neuts % (Manual) Lymphocytes % (Manual) Monocytes % (Manual) Eosinophils % (Manual) Basophils % (Manual) Nucleated RBC % Seg Neutrophils # Seg Neutrophils # Man Lymphocytes # (Manual) Monocytes # (Manual) Eosinophils # (Manual) Basophils # (Manual) PT INR Fibrinogen dRVVT Confirm Interp Factor V Activity POC ABG pH POC ABG pCO2 POC ABG pO2 ABG pO2 ABG HCO3 ABG Base Excess ABG Hemoglobin Oxyhemoglobin Sodium Potassium 5.2 H Chloride Carbon Dioxide 18 L BUN 139 H Creatinine 3.7 H Glucose 227 H POC Glucose 226 H 244 H Lactic Acid Calcium 8.3 L Ionized Calcium Phosphorus Magnesium Direct Bilirubin AST ALT Alkaline Phosphatase Lactate Dehydrogenase Troponin T C-Reactive Protein Total Protein Albumin Prealbumin Triglycerides Cholesterol LDL Cholesterol Direct HDL Cholesterol 25-OH Vitamin D Total PTH Intact Urine pH Urine WBC (Auto) Urine Creatinine Urine Total Protein Fluid Total Protein Vancomycin Trough Rheumatoid Factor Complement C4 Miscellaneous Test Crossmatch 09/15/16 09/15/16 09/15/16 14:32 17:33 23:35 WBC RBC Hgb Hct MCV MCH MCHC RDW Plt Count Lymph % (Auto) [place] % (Auto) Lymph # [place] # Baso # Seg Neutrophils % Seg Neuts % (Manual) Lymphocytes % (Manual) Monocytes % (Manual) Eosinophils % (Manual) Basophils % (Manual) Nucleated RBC % Seg Neutrophils # Seg Neutrophils # Man Lymphocytes # (Manual) Monocytes # (Manual) Eosinophils # (Manual) Basophils # (Manual) PT INR Fibrinogen dRVVT Confirm Interp Factor V Activity POC ABG pH POC ABG pCO2 27.7 L POC ABG pO2 120 H ABG pO2 ABG HCO3 ABG Base Excess ABG Hemoglobin Oxyhemoglobin Sodium Potassium Chloride Carbon Dioxide BUN Creatinine Glucose POC Glucose 232 H 167 H Lactic Acid Calcium Ionized Calcium Phosphorus Magnesium Direct Bilirubin AST ALT Alkaline Phosphatase Lactate Dehydrogenase Troponin T C-Reactive Protein Total Protein Albumin Prealbumin Triglycerides Cholesterol LDL Cholesterol Direct HDL Cholesterol 25-OH Vitamin D Total PTH Intact Urine pH Urine WBC (Auto) Urine Creatinine Urine Total Protein Fluid Total Protein Vancomycin Trough Rheumatoid Factor Complement C4 Miscellaneous Test Crossmatch 09/16/16 09/16/16 09/16/16 03:58 10:27 10:27 WBC 19.0 H RBC 2.77 L Hgb 6.5 L Hct 20.9 L MCV 76 L MCH 23 L MCHC RDW 19.3 H Plt Count Lymph % (Auto) 11.0 L [place] % (Auto) Lymph # [place] # 1.1 H Baso # Seg Neutrophils % 82.5 H Seg Neuts % (Manual) Lymphocytes % (Manual) Monocytes % (Manual) Eosinophils % (Manual) Basophils % (Manual) Nucleated RBC % Seg Neutrophils # 15.7 H Seg Neutrophils # Man Lymphocytes # (Manual) Monocytes # (Manual) Eosinophils # (Manual) Basophils # (Manual) PT INR Fibrinogen dRVVT Confirm Interp Factor V Activity POC ABG pH POC ABG pCO2 POC ABG pO2 ABG pO2 ABG HCO3 ABG Base Excess ABG Hemoglobin Oxyhemoglobin Sodium Potassium Chloride 109.3 H Carbon Dioxide 18 L BUN 139 H Creatinine 4.1 H Glucose 144 H POC Glucose 146 H Lactic Acid Calcium 8.1 L Ionized Calcium Phosphorus Magnesium Direct Bilirubin AST ALT Alkaline Phosphatase Lactate Dehydrogenase Troponin T C-Reactive Protein Total Protein Albumin Prealbumin Triglycerides Cholesterol LDL Cholesterol Direct HDL Cholesterol 25-OH Vitamin D Total PTH Intact Urine pH Urine WBC (Auto) Urine Creatinine Urine Total Protein Fluid Total Protein Vancomycin Trough Rheumatoid Factor Complement C4 Miscellaneous Test Crossmatch 09/16/16 09/16/16 09/16/16 12:04 12:10 13:55 WBC RBC Hgb Hct MCV MCH MCHC RDW Plt Count Lymph % (Auto) [place] % (Auto) Lymph # [place] # Baso # Seg Neutrophils % Seg Neuts % (Manual) Lymphocytes % (Manual) Monocytes % (Manual) Eosinophils % (Manual) Basophils % (Manual) Nucleated RBC % Seg Neutrophils # Seg Neutrophils # Man Lymphocytes # (Manual) Monocytes # (Manual) Eosinophils # (Manual) Basophils # (Manual) PT INR Fibrinogen dRVVT Confirm Interp Factor V Activity POC ABG pH POC ABG pCO2 32.9 L POC ABG pO2 ABG pO2 ABG HCO3 ABG Base Excess ABG Hemoglobin Oxyhemoglobin Sodium Potassium Chloride Carbon Dioxide BUN Creatinine Glucose POC Glucose 185 H Lactic Acid Calcium Ionized Calcium Phosphorus Magnesium Direct Bilirubin AST ALT Alkaline Phosphatase Lactate Dehydrogenase Troponin T C-Reactive Protein Total Protein Albumin Prealbumin Triglycerides Cholesterol LDL Cholesterol Direct HDL Cholesterol 25-OH Vitamin D Total PTH Intact Urine pH Urine WBC (Auto) Urine Creatinine Urine Total Protein Fluid Total Protein Vancomycin Trough Rheumatoid Factor Complement C4 Miscellaneous Test Crossmatch See Detail 09/16/16 09/16/16 09/16/16 17:55 19:19 23:48 WBC RBC Hgb Hct MCV MCH MCHC RDW Plt Count Lymph % (Auto) [place] % (Auto) Lymph # [place] # Baso # Seg Neutrophils % Seg Neuts % (Manual) Lymphocytes % (Manual) Monocytes % (Manual) Eosinophils % (Manual) Basophils % (Manual) Nucleated RBC % Seg Neutrophils # Seg Neutrophils # Man Lymphocytes # (Manual) Monocytes # (Manual) Eosinophils # (Manual) Basophils # (Manual) PT INR Fibrinogen dRVVT Confirm Interp Factor V Activity POC ABG pH POC ABG pCO2 POC ABG pO2 ABG pO2 ABG HCO3 ABG Base Excess ABG Hemoglobin Oxyhemoglobin Sodium Potassium Chloride Carbon Dioxide BUN Creatinine Glucose POC Glucose 222 H 107 H Lactic Acid Calcium Ionized Calcium Phosphorus Magnesium Direct Bilirubin AST ALT Alkaline Phosphatase Lactate Dehydrogenase Troponin T C-Reactive Protein Total Protein Albumin Prealbumin Triglycerides Cholesterol LDL Cholesterol Direct HDL Cholesterol 25-OH Vitamin D Total PTH Intact Urine pH Urine WBC (Auto) Urine Creatinine 47.4 H Urine Total Protein 16 H Fluid Total Protein Vancomycin Trough Rheumatoid Factor Complement C4 Miscellaneous Test Crossmatch 09/17/16 09/17/16 09/17/16 03:45 03:45 04:55 WBC 19.6 H RBC 3.41 L Hgb 8.5 L Hct 26.7 L MCV 78 L MCH 25 L MCHC RDW 19.9 H Plt Count Lymph % (Auto) 9.3 L [place] % (Auto) Lymph # [place] # 1.2 H Baso # Seg Neutrophils % 83.9 H Seg Neuts % (Manual) Lymphocytes % (Manual) Monocytes % (Manual) Eosinophils % (Manual) Basophils % (Manual) Nucleated RBC % Seg Neutrophils # 16.4 H Seg Neutrophils # Man Lymphocytes # (Manual) Monocytes # (Manual) Eosinophils # (Manual) Basophils # (Manual) PT INR Fibrinogen dRVVT Confirm Interp Factor V Activity POC ABG pH POC ABG pCO2 POC ABG pO2 ABG pO2 ABG HCO3 ABG Base Excess ABG Hemoglobin Oxyhemoglobin Sodium 146 H Potassium 5.1 H Chloride 110.9 H Carbon Dioxide 16 L BUN 146 H Creatinine 4.0 H Glucose 108 H POC Glucose 133 H Lactic Acid Calcium Ionized Calcium Phosphorus Magnesium 3.00 H Direct Bilirubin AST ALT Alkaline Phosphatase Lactate Dehydrogenase Troponin T C-Reactive Protein Total Protein Albumin Prealbumin Triglycerides Cholesterol LDL Cholesterol Direct HDL Cholesterol 25-OH Vitamin D Total PTH Intact Urine pH Urine WBC (Auto) Urine Creatinine Urine Total Protein Fluid Total Protein Vancomycin Trough Rheumatoid Factor Complement C4 Miscellaneous Test Crossmatch 09/17/16 09/17/16 09/17/16 11:15 17:33 23:47 WBC RBC Hgb Hct MCV MCH MCHC RDW Plt Count Lymph % (Auto) [place] % (Auto) Lymph # [place] # Baso # Seg Neutrophils % Seg Neuts % (Manual) Lymphocytes % (Manual) Monocytes % (Manual) Eosinophils % (Manual) Basophils % (Manual) Nucleated RBC % Seg Neutrophils # Seg Neutrophils # Man Lymphocytes # (Manual) Monocytes # (Manual) Eosinophils # (Manual) Basophils # (Manual) PT INR Fibrinogen dRVVT Confirm Interp Factor V Activity POC ABG pH POC ABG pCO2 POC ABG pO2 ABG pO2 ABG HCO3 ABG Base Excess ABG Hemoglobin Oxyhemoglobin Sodium Potassium Chloride Carbon Dioxide BUN Creatinine Glucose POC Glucose 176 H 246 H 148 H Lactic Acid Calcium Ionized Calcium Phosphorus Magnesium Direct Bilirubin AST ALT Alkaline Phosphatase Lactate Dehydrogenase Troponin T C-Reactive Protein Total Protein Albumin Prealbumin Triglycerides Cholesterol LDL Cholesterol Direct HDL Cholesterol 25-OH Vitamin D Total PTH Intact Urine pH Urine WBC (Auto) Urine Creatinine Urine Total Protein Fluid Total Protein Vancomycin Trough Rheumatoid Factor Complement C4 Miscellaneous Test Crossmatch 09/18/16 09/18/16 09/18/16 05:33 08:31 08:31 WBC 18.0 H RBC 3.17 L Hgb 9.0 L Hct 25.7 L MCV MCH MCHC 35 H RDW 20.4 H Plt Count Lymph % (Auto) [place] % (Auto) Lymph # [place] # Baso # Seg Neutrophils % Seg Neuts % (Manual) Lymphocytes % (Manual) Monocytes % (Manual) Eosinophils % (Manual) Basophils % (Manual) Nucleated RBC % Seg Neutrophils # Seg Neutrophils # Man Lymphocytes # (Manual) Monocytes # (Manual) Eosinophils # (Manual) Basophils # (Manual) PT INR Fibrinogen dRVVT Confirm Interp Factor V Activity POC ABG pH POC ABG pCO2 POC ABG pO2 ABG pO2 ABG HCO3 ABG Base Excess ABG Hemoglobin Oxyhemoglobin Sodium Potassium Chloride Carbon Dioxide 15 L BUN 124 H Creatinine 3.8 H Glucose POC Glucose 120 H Lactic Acid Calcium 8.1 L Ionized Calcium Phosphorus Magnesium Direct Bilirubin AST ALT Alkaline Phosphatase Lactate Dehydrogenase Troponin T C-Reactive Protein Total Protein Albumin Prealbumin Triglycerides Cholesterol LDL Cholesterol Direct HDL Cholesterol 25-OH Vitamin D Total PTH Intact Urine pH Urine WBC (Auto) Urine Creatinine Urine Total Protein Fluid Total Protein Vancomycin Trough Rheumatoid Factor Complement C4 Miscellaneous Test Crossmatch 09/18/16 09/18/16 09/18/16 12:03 15:34 17:50 WBC RBC Hgb Hct MCV MCH MCHC RDW Plt Count Lymph % (Auto) [place] % (Auto) Lymph # [place] # Baso # Seg Neutrophils % Seg Neuts % (Manual) Lymphocytes % (Manual) Monocytes % (Manual) Eosinophils % (Manual) Basophils % (Manual) Nucleated RBC % Seg Neutrophils # Seg Neutrophils # Man Lymphocytes # (Manual) Monocytes # (Manual) Eosinophils # (Manual) Basophils # (Manual) PT INR Fibrinogen dRVVT Confirm Interp Factor V Activity POC ABG pH POC ABG pCO2 25.7 L POC ABG pO2 66 L ABG pO2 ABG HCO3 ABG Base Excess ABG Hemoglobin Oxyhemoglobin Sodium Potassium Chloride Carbon Dioxide BUN Creatinine Glucose POC Glucose 156 H 220 H Lactic Acid Calcium Ionized Calcium Phosphorus Magnesium Direct Bilirubin AST ALT Alkaline Phosphatase Lactate Dehydrogenase Troponin T C-Reactive Protein Total Protein Albumin Prealbumin Triglycerides Cholesterol LDL Cholesterol Direct HDL Cholesterol 25-OH Vitamin D Total PTH Intact Urine pH Urine WBC (Auto) Urine Creatinine Urine Total Protein Fluid Total Protein Vancomycin Trough Rheumatoid Factor Complement C4 Miscellaneous Test Crossmatch 09/19/16 09/19/16 09/19/16 06:21 09:50 09:50 WBC 17.1 H RBC 3.49 L Hgb 9.0 L Hct 28.1 L MCV MCH 26 L MCHC RDW 20.8 H Plt Count Lymph % (Auto) 11.5 L [place] % (Auto) 7.5 H Lymph # [place] # 1.3 H Baso # Seg Neutrophils % 79.8 H Seg Neuts % (Manual) Lymphocytes % (Manual) Monocytes % (Manual) Eosinophils % (Manual) Basophils % (Manual) Nucleated RBC % Seg Neutrophils # 13.7 H Seg Neutrophils # Man Lymphocytes # (Manual) Monocytes # (Manual) Eosinophils # (Manual) Basophils # (Manual) PT INR Fibrinogen dRVVT Confirm Interp Factor V Activity POC ABG pH POC ABG pCO2 POC ABG pO2 ABG pO2 ABG HCO3 ABG Base Excess ABG Hemoglobin Oxyhemoglobin Sodium Potassium Chloride 108.6 H Carbon Dioxide 15 L BUN 125 H Creatinine 4.1 H Glucose 124 H POC Glucose 119 H Lactic Acid Calcium Ionized Calcium Phosphorus Magnesium Direct Bilirubin AST ALT Alkaline Phosphatase Lactate Dehydrogenase Troponin T C-Reactive Protein Total Protein Albumin Prealbumin Triglycerides Cholesterol LDL Cholesterol Direct HDL Cholesterol 25-OH Vitamin D Total PTH Intact Urine pH Urine WBC (Auto) Urine Creatinine Urine Total Protein Fluid Total Protein Vancomycin Trough Rheumatoid Factor Complement C4 Miscellaneous Test Crossmatch 09/19/16 09/19/16 09/19/16 11:25 17:53 23:36 WBC RBC Hgb Hct MCV MCH MCHC RDW Plt Count Lymph % (Auto) [place] % (Auto) Lymph # [place] # Baso # Seg Neutrophils % Seg Neuts % (Manual) Lymphocytes % (Manual) Monocytes % (Manual) Eosinophils % (Manual) Basophils % (Manual) Nucleated RBC % Seg Neutrophils # Seg Neutrophils # Man Lymphocytes # (Manual) Monocytes # (Manual) Eosinophils # (Manual) Basophils # (Manual) PT INR Fibrinogen dRVVT Confirm Interp Factor V Activity POC ABG pH POC ABG pCO2 POC ABG pO2 ABG pO2 ABG HCO3 ABG Base Excess ABG Hemoglobin Oxyhemoglobin Sodium Potassium Chloride Carbon Dioxide BUN Creatinine Glucose POC Glucose 160 H 245 H 121 H Lactic Acid Calcium Ionized Calcium Phosphorus Magnesium Direct Bilirubin AST ALT Alkaline Phosphatase Lactate Dehydrogenase Troponin T C-Reactive Protein Total Protein Albumin Prealbumin Triglycerides Cholesterol LDL Cholesterol Direct HDL Cholesterol 25-OH Vitamin D Total PTH Intact Urine pH Urine WBC (Auto) Urine Creatinine Urine Total Protein Fluid Total Protein Vancomycin Trough Rheumatoid Factor Complement C4 Miscellaneous Test Crossmatch 09/20/16 09/20/16 09/20/16 04:10 04:10 04:10 WBC 17.0 H RBC 3.21 L Hgb 8.2 L Hct 25.5 L MCV MCH 26 L MCHC RDW 20.9 H Plt Count Lymph % (Auto) [place] % (Auto) Lymph # [place] # Baso # Seg Neutrophils % Seg Neuts % (Manual) Lymphocytes % (Manual) Monocytes % (Manual) Eosinophils % (Manual) Basophils % (Manual) Nucleated RBC % Seg Neutrophils # Seg Neutrophils # Man Lymphocytes # (Manual) Monocytes # (Manual) Eosinophils # (Manual) Basophils # (Manual) PT INR Fibrinogen dRVVT Confirm Interp Factor V Activity POC ABG pH POC ABG pCO2 POC ABG pO2 ABG pO2 ABG HCO3 ABG Base Excess ABG Hemoglobin Oxyhemoglobin Sodium Potassium Chloride 111.0 H Carbon Dioxide 16 L BUN 129 H Creatinine 3.7 H Glucose 115 H POC Glucose Lactic Acid Calcium 8.2 L Ionized Calcium Phosphorus Magnesium Direct Bilirubin AST ALT Alkaline Phosphatase Lactate Dehydrogenase Troponin T C-Reactive Protein Total Protein Albumin Prealbumin Triglycerides 243 H Cholesterol LDL Cholesterol Direct HDL Cholesterol 25-OH Vitamin D Total PTH Intact Urine pH Urine WBC (Auto) Urine Creatinine Urine Total Protein Fluid Total Protein Vancomycin Trough Rheumatoid Factor Complement C4 Miscellaneous Test Crossmatch 09/20/16 09/20/16 09/20/16 05:40 11:52 16:50 WBC RBC Hgb Hct MCV MCH MCHC RDW Plt Count Lymph % (Auto) [place] % (Auto) Lymph # [place] # Baso # Seg Neutrophils % Seg Neuts % (Manual) Lymphocytes % (Manual) Monocytes % (Manual) Eosinophils % (Manual) Basophils % (Manual) Nucleated RBC % Seg Neutrophils # Seg Neutrophils # Man Lymphocytes # (Manual) Monocytes # (Manual) Eosinophils # (Manual) Basophils # (Manual) PT INR Fibrinogen dRVVT Confirm Interp Factor V Activity POC ABG pH POC ABG pCO2 POC ABG pO2 ABG pO2 ABG HCO3 ABG Base Excess ABG Hemoglobin Oxyhemoglobin Sodium Potassium Chloride Carbon Dioxide BUN Creatinine Glucose POC Glucose 131 H 183 H 236 H Lactic Acid Calcium Ionized Calcium Phosphorus Magnesium Direct Bilirubin AST ALT Alkaline Phosphatase Lactate Dehydrogenase Troponin T C-Reactive Protein Total Protein Albumin Prealbumin Triglycerides Cholesterol LDL Cholesterol Direct HDL Cholesterol 25-OH Vitamin D Total PTH Intact Urine pH Urine WBC (Auto) Urine Creatinine Urine Total Protein Fluid Total Protein Vancomycin Trough Rheumatoid Factor Complement C4 Miscellaneous Test Crossmatch 09/20/16 09/21/16 09/21/16 23:51 03:30 04:44 WBC RBC Hgb Hct MCV MCH MCHC RDW Plt Count Lymph % (Auto) [place] % (Auto) Lymph # [place] # Baso # Seg Neutrophils % Seg Neuts % (Manual) Lymphocytes % (Manual) Monocytes % (Manual) Eosinophils % (Manual) Basophils % (Manual) Nucleated RBC % Seg Neutrophils # Seg Neutrophils # Man Lymphocytes # (Manual) Monocytes # (Manual) Eosinophils # (Manual) Basophils # (Manual) PT INR Fibrinogen dRVVT Confirm Interp Factor V Activity POC ABG pH POC ABG pCO2 POC ABG pO2 ABG pO2 ABG HCO3 ABG Base Excess ABG Hemoglobin Oxyhemoglobin Sodium Potassium Chloride Carbon Dioxide BUN Creatinine Glucose POC Glucose 114 H 141 H Lactic Acid Calcium Ionized Calcium Phosphorus Magnesium 2.70 H Direct Bilirubin AST ALT Alkaline Phosphatase Lactate Dehydrogenase Troponin T C-Reactive Protein Total Protein Albumin Prealbumin Triglycerides Cholesterol LDL Cholesterol Direct HDL Cholesterol 25-OH Vitamin D Total PTH Intact Urine pH Urine WBC (Auto) Urine Creatinine Urine Total Protein Fluid Total Protein Vancomycin Trough Rheumatoid Factor Complement C4 Miscellaneous Test Crossmatch 09/21/16 09/21/16 09/21/16 07:45 07:45 10:01 WBC 13.8 H RBC 2.94 L Hgb 7.5 L Hct 23.5 L MCV MCH 26 L MCHC RDW 21.2 H Plt Count Lymph % (Auto) 6.9 L [place] % (Auto) 9.4 H Lymph # 0.9 L [place] # 1.3 H Baso # Seg Neutrophils % 83.2 H Seg Neuts % (Manual) Lymphocytes % (Manual) Monocytes % (Manual) Eosinophils % (Manual) Basophils % (Manual) Nucleated RBC % Seg Neutrophils # 11.5 H Seg Neutrophils # Man Lymphocytes # (Manual) Monocytes # (Manual) Eosinophils # (Manual) Basophils # (Manual) PT INR Fibrinogen dRVVT Confirm Interp Factor V Activity POC ABG pH 7.308 L POC ABG pCO2 31.9 L POC ABG pO2 148 H ABG pO2 ABG HCO3 ABG Base Excess ABG Hemoglobin Oxyhemoglobin Sodium 147 H Potassium Chloride 114.2 H Carbon Dioxide 15 L BUN 120 H Creatinine 3.9 H Glucose 156 H POC Glucose Lactic Acid Calcium 8.2 L Ionized Calcium Phosphorus Magnesium Direct Bilirubin AST ALT Alkaline Phosphatase Lactate Dehydrogenase Troponin T C-Reactive Protein Total Protein Albumin Prealbumin Triglycerides Cholesterol LDL Cholesterol Direct HDL Cholesterol 25-OH Vitamin D Total PTH Intact Urine pH Urine WBC (Auto) Urine Creatinine Urine Total Protein Fluid Total Protein Vancomycin Trough Rheumatoid Factor Complement C4 Miscellaneous Test Crossmatch 09/21/16 09/21/16 09/21/16 12:00 12:03 13:00 WBC RBC Hgb Hct MCV MCH MCHC RDW Plt Count Lymph % (Auto) [place] % (Auto) Lymph # [place] # Baso # Seg Neutrophils % Seg Neuts % (Manual) Lymphocytes % (Manual) Monocytes % (Manual) Eosinophils % (Manual) Basophils % (Manual) Nucleated RBC % Seg Neutrophils # Seg Neutrophils # Man Lymphocytes # (Manual) Monocytes # (Manual) Eosinophils # (Manual) Basophils # (Manual) PT INR Fibrinogen dRVVT Confirm Interp Factor V Activity POC ABG pH POC ABG pCO2 POC ABG pO2 ABG pO2 ABG HCO3 ABG Base Excess ABG Hemoglobin Oxyhemoglobin Sodium Potassium Chloride Carbon Dioxide BUN Creatinine Glucose POC Glucose 163 H Lactic Acid Calcium Ionized Calcium Phosphorus Magnesium Direct Bilirubin AST ALT Alkaline Phosphatase Lactate Dehydrogenase Troponin T C-Reactive Protein Total Protein Albumin Prealbumin Triglycerides Cholesterol LDL Cholesterol Direct HDL Cholesterol 25-OH Vitamin D Total PTH Intact Urine pH Urine WBC (Auto) Urine Creatinine 54.8 H Urine Total Protein Fluid Total Protein Vancomycin Trough 2.3 L Rheumatoid Factor Complement C4 Miscellaneous Test Crossmatch 09/21/16 09/21/16 09/22/16 16:51 23:17 06:27 WBC RBC Hgb Hct MCV MCH MCHC RDW Plt Count Lymph % (Auto) [place] % (Auto) Lymph # [place] # Baso # Seg Neutrophils % Seg Neuts % (Manual) Lymphocytes % (Manual) Monocytes % (Manual) Eosinophils % (Manual) Basophils % (Manual) Nucleated RBC % Seg Neutrophils # Seg Neutrophils # Man Lymphocytes # (Manual) Monocytes # (Manual) Eosinophils # (Manual) Basophils # (Manual) PT INR Fibrinogen dRVVT Confirm Interp Factor V Activity POC ABG pH POC ABG pCO2 POC ABG pO2 ABG pO2 ABG HCO3 ABG Base Excess ABG Hemoglobin Oxyhemoglobin Sodium Potassium Chloride Carbon Dioxide BUN Creatinine Glucose POC Glucose 206 H 114 H 115 H Lactic Acid Calcium Ionized Calcium Phosphorus Magnesium Direct Bilirubin AST ALT Alkaline Phosphatase Lactate Dehydrogenase Troponin T C-Reactive Protein Total Protein Albumin Prealbumin Triglycerides Cholesterol LDL Cholesterol Direct HDL Cholesterol 25-OH Vitamin D Total PTH Intact Urine pH Urine WBC (Auto) Urine Creatinine Urine Total Protein Fluid Total Protein Vancomycin Trough Rheumatoid Factor Complement C4 Miscellaneous Test Crossmatch 09/22/16 09/22/16 09/22/16 07:50 07:50 12:00 WBC 17.8 H RBC 3.04 L Hgb 8.0 L Hct 24.7 L MCV MCH 26 L MCHC RDW 21.6 H Plt Count Lymph % (Auto) [place] % (Auto) Lymph # [place] # Baso # Seg Neutrophils % Seg Neuts % (Manual) Lymphocytes % (Manual) Monocytes % (Manual) Eosinophils % (Manual) Basophils % (Manual) Nucleated RBC % Seg Neutrophils # Seg Neutrophils # Man Lymphocytes # (Manual) Monocytes # (Manual) Eosinophils # (Manual) Basophils # (Manual) PT INR Fibrinogen dRVVT Confirm Interp Factor V Activity POC ABG pH POC ABG pCO2 POC ABG pO2 ABG pO2 ABG HCO3 ABG Base Excess ABG Hemoglobin Oxyhemoglobin Sodium 150 H Potassium Chloride 118.2 H Carbon Dioxide 14 L BUN 111 H Creatinine 3.7 H Glucose 157 H POC Glucose 183 H Lactic Acid Calcium Ionized Calcium Phosphorus Magnesium Direct Bilirubin AST ALT Alkaline Phosphatase Lactate Dehydrogenase Troponin T C-Reactive Protein Total Protein Albumin Prealbumin Triglycerides Cholesterol LDL Cholesterol Direct HDL Cholesterol 25-OH Vitamin D Total PTH Intact Urine pH Urine WBC (Auto) Urine Creatinine Urine Total Protein Fluid Total Protein Vancomycin Trough Rheumatoid Factor Complement C4 Miscellaneous Test Crossmatch 09/22/16 09/22/16 09/23/16 17:29 23:10 05:00 WBC 19.2 H RBC 3.13 L Hgb 8.0 L Hct 25.2 L MCV MCH 26 L MCHC RDW 22.1 H Plt Count Lymph % (Auto) [place] % (Auto) Lymph # [place] # Baso # Seg Neutrophils % Seg Neuts % (Manual) 92.0 H Lymphocytes % (Manual) 3.0 L Monocytes % (Manual) Eosinophils % (Manual) Basophils % (Manual) Nucleated RBC % Seg Neutrophils # Seg Neutrophils # Man 17.7 H Lymphocytes # (Manual) 0.6 L Monocytes # (Manual) Eosinophils # (Manual) Basophils # (Manual) PT INR Fibrinogen dRVVT Confirm Interp Factor V Activity POC ABG pH POC ABG pCO2 POC ABG pO2 ABG pO2 ABG HCO3 ABG Base Excess ABG Hemoglobin Oxyhemoglobin Sodium Potassium Chloride Carbon Dioxide BUN Creatinine Glucose POC Glucose 197 H 169 H Lactic Acid Calcium Ionized Calcium Phosphorus Magnesium Direct Bilirubin AST ALT Alkaline Phosphatase Lactate Dehydrogenase Troponin T C-Reactive Protein Total Protein Albumin Prealbumin Triglycerides Cholesterol LDL Cholesterol Direct HDL Cholesterol 25-OH Vitamin D Total PTH Intact Urine pH Urine WBC (Auto) Urine Creatinine Urine Total Protein Fluid Total Protein Vancomycin Trough Rheumatoid Factor Complement C4 Miscellaneous Test Crossmatch 09/23/16 09/23/16 09/23/16 05:00 05:00 05:10 WBC RBC Hgb Hct MCV MCH MCHC RDW Plt Count Lymph % (Auto) [place] % (Auto) Lymph # [place] # Baso # Seg Neutrophils % Seg Neuts % (Manual) Lymphocytes % (Manual) Monocytes % (Manual) Eosinophils % (Manual) Basophils % (Manual) Nucleated RBC % Seg Neutrophils # Seg Neutrophils # Man Lymphocytes # (Manual) Monocytes # (Manual) Eosinophils # (Manual) Basophils # (Manual) PT INR Fibrinogen dRVVT Confirm Interp Factor V Activity POC ABG pH POC ABG pCO2 POC ABG pO2 ABG pO2 ABG HCO3 ABG Base Excess ABG Hemoglobin Oxyhemoglobin Sodium 147 H Potassium 3.2 L Chloride 115.7 H Carbon Dioxide 13 L BUN 111 H Creatinine 3.8 H Glucose 194 H POC Glucose 188 H Lactic Acid Calcium 7.3 L D Ionized Calcium Phosphorus Magnesium Direct Bilirubin AST ALT Alkaline Phosphatase Lactate Dehydrogenase Troponin T C-Reactive Protein 3.20 H Total Protein Albumin Prealbumin Triglycerides Cholesterol LDL Cholesterol Direct HDL Cholesterol 25-OH Vitamin D Total PTH Intact Urine pH Urine WBC (Auto) Urine Creatinine Urine Total Protein Fluid Total Protein Vancomycin Trough Rheumatoid Factor Complement C4 Miscellaneous Test Crossmatch 09/23/16 09/23/16 09/23/16 11:37 12:29 18:01 WBC RBC Hgb Hct MCV MCH MCHC RDW Plt Count Lymph % (Auto) [place] % (Auto) Lymph # [place] # Baso # Seg Neutrophils % Seg Neuts % (Manual) Lymphocytes % (Manual) Monocytes % (Manual) Eosinophils % (Manual) Basophils % (Manual) Nucleated RBC % Seg Neutrophils # Seg Neutrophils # Man Lymphocytes # (Manual) Monocytes # (Manual) Eosinophils # (Manual) Basophils # (Manual) PT INR Fibrinogen dRVVT Confirm Interp Factor V Activity POC ABG pH POC ABG pCO2 18.9 L POC ABG pO2 143 H ABG pO2 ABG HCO3 ABG Base Excess ABG Hemoglobin Oxyhemoglobin Sodium Potassium Chloride Carbon Dioxide BUN Creatinine Glucose POC Glucose 153 H 108 H Lactic Acid Calcium Ionized Calcium Phosphorus Magnesium Direct Bilirubin AST ALT Alkaline Phosphatase Lactate Dehydrogenase Troponin T C-Reactive Protein Total Protein Albumin Prealbumin Triglycerides Cholesterol LDL Cholesterol Direct HDL Cholesterol 25-OH Vitamin D Total PTH Intact Urine pH Urine WBC (Auto) Urine Creatinine Urine Total Protein Fluid Total Protein Vancomycin Trough Rheumatoid Factor Complement C4 Miscellaneous Test Crossmatch 09/23/16 09/23/16 09/24/16 21:19 23:43 05:16 WBC RBC Hgb Hct MCV MCH MCHC RDW Plt Count Lymph % (Auto) [place] % (Auto) Lymph # [place] # Baso # Seg Neutrophils % Seg Neuts % (Manual) Lymphocytes % (Manual) Monocytes % (Manual) Eosinophils % (Manual) Basophils % (Manual) Nucleated RBC % Seg Neutrophils # Seg Neutrophils # Man Lymphocytes # (Manual) Monocytes # (Manual) Eosinophils # (Manual) Basophils # (Manual) PT INR Fibrinogen dRVVT Confirm Interp Factor V Activity POC ABG pH POC ABG pCO2 17.3 L POC ABG pO2 112 H ABG pO2 ABG HCO3 ABG Base Excess ABG Hemoglobin Oxyhemoglobin Sodium Potassium Chloride Carbon Dioxide BUN Creatinine Glucose POC Glucose 143 H 164 H Lactic Acid Calcium Ionized Calcium Phosphorus Magnesium Direct Bilirubin AST ALT Alkaline Phosphatase Lactate Dehydrogenase Troponin T C-Reactive Protein Total Protein Albumin Prealbumin Triglycerides Cholesterol LDL Cholesterol Direct HDL Cholesterol 25-OH Vitamin D Total PTH Intact Urine pH Urine WBC (Auto) Urine Creatinine Urine Total Protein Fluid Total Protein Vancomycin Trough Rheumatoid Factor Complement C4 Miscellaneous Test Crossmatch 09/24/16 09/24/16 09/24/16 05:21 11:58 17:06 WBC RBC Hgb Hct MCV MCH MCHC RDW Plt Count Lymph % (Auto) [place] % (Auto) Lymph # [place] # Baso # Seg Neutrophils % Seg Neuts % (Manual) Lymphocytes % (Manual) Monocytes % (Manual) Eosinophils % (Manual) Basophils % (Manual) Nucleated RBC % Seg Neutrophils # Seg Neutrophils # Man Lymphocytes # (Manual) Monocytes # (Manual) Eosinophils # (Manual) Basophils # (Manual) PT INR Fibrinogen dRVVT Confirm Interp Factor V Activity POC ABG pH POC ABG pCO2 POC ABG pO2 ABG pO2 ABG HCO3 ABG Base Excess ABG Hemoglobin Oxyhemoglobin Sodium Potassium Chloride Carbon Dioxide 10 L BUN 103 H Creatinine 4.3 H Glucose 163 H POC Glucose 173 H 167 H Lactic Acid Calcium 6.5 L Ionized Calcium Phosphorus Magnesium Direct Bilirubin AST ALT Alkaline Phosphatase Lactate Dehydrogenase Troponin T C-Reactive Protein Total Protein Albumin Prealbumin Triglycerides Cholesterol LDL Cholesterol Direct HDL Cholesterol 25-OH Vitamin D Total PTH Intact Urine pH Urine WBC (Auto) Urine Creatinine Urine Total Protein Fluid Total Protein Vancomycin Trough Rheumatoid Factor Complement C4 Miscellaneous Test Crossmatch 09/24/16 09/24/16 09/24/16 20:15 21:02 23:48 WBC RBC Hgb Hct MCV MCH MCHC RDW Plt Count Lymph % (Auto) [place] % (Auto) Lymph # [place] # Baso # Seg Neutrophils % Seg Neuts % (Manual) Lymphocytes % (Manual) Monocytes % (Manual) Eosinophils % (Manual) Basophils % (Manual) Nucleated RBC % Seg Neutrophils # Seg Neutrophils # Man Lymphocytes # (Manual) Monocytes # (Manual) Eosinophils # (Manual) Basophils # (Manual) PT INR Fibrinogen dRVVT Confirm Interp Factor V Activity POC ABG pH 7.288 L POC ABG pCO2 30.2 L 21.5 L POC ABG pO2 32 L 39 L ABG pO2 ABG HCO3 ABG Base Excess ABG Hemoglobin Oxyhemoglobin Sodium Potassium Chloride Carbon Dioxide BUN Creatinine Glucose POC Glucose 109 H Lactic Acid Calcium Ionized Calcium Phosphorus Magnesium Direct Bilirubin AST ALT Alkaline Phosphatase Lactate Dehydrogenase Troponin T C-Reactive Protein Total Protein Albumin Prealbumin Triglycerides Cholesterol LDL Cholesterol Direct HDL Cholesterol 25-OH Vitamin D Total PTH Intact Urine pH Urine WBC (Auto) Urine Creatinine Urine Total Protein Fluid Total Protein Vancomycin Trough Rheumatoid Factor Complement C4 Miscellaneous Test Crossmatch 09/25/16 09/25/16 09/25/16 04:20 04:20 04:20 WBC RBC 2.58 L Hgb 7.0 L Hct 21.0 L MCV MCH 27 L MCHC RDW 23.8 H Plt Count Lymph % (Auto) [place] % (Auto) Lymph # [place] # Baso # Seg Neutrophils % Seg Neuts % (Manual) Lymphocytes % (Manual) 12.0 L Monocytes % (Manual) Eosinophils % (Manual) 7.0 H Basophils % (Manual) 2.0 H Nucleated RBC % Seg Neutrophils # Seg Neutrophils # Man Lymphocytes # (Manual) 0.9 L Monocytes # (Manual) Eosinophils # (Manual) 0.5 H Basophils # (Manual) PT INR Fibrinogen dRVVT Confirm Interp Factor V Activity POC ABG pH POC ABG pCO2 POC ABG pO2 ABG pO2 ABG HCO3 ABG Base Excess ABG Hemoglobin Oxyhemoglobin Sodium Potassium Chloride Carbon Dioxide 15 L BUN 72 H Creatinine 3.8 H Glucose POC Glucose Lactic Acid Calcium 6.0 L Ionized Calcium Phosphorus 4.60 H Magnesium 1.60 L Direct Bilirubin AST ALT Alkaline Phosphatase Lactate Dehydrogenase Troponin T C-Reactive Protein Total Protein Albumin Prealbumin Triglycerides Cholesterol LDL Cholesterol Direct HDL Cholesterol 25-OH Vitamin D Total PTH Intact Urine pH Urine WBC (Auto) Urine Creatinine Urine Total Protein Fluid Total Protein Vancomycin Trough Rheumatoid Factor Complement C4 Miscellaneous Test Crossmatch 09/25/16 09/25/16 09/25/16 04:57 08:02 10:30 WBC RBC Hgb Hct MCV MCH MCHC RDW Plt Count Lymph % (Auto) [place] % (Auto) Lymph # [place] # Baso # Seg Neutrophils % Seg Neuts % (Manual) Lymphocytes % (Manual) Monocytes % (Manual) Eosinophils % (Manual) Basophils % (Manual) Nucleated RBC % Seg Neutrophils # Seg Neutrophils # Man Lymphocytes # (Manual) Monocytes # (Manual) Eosinophils # (Manual) Basophils # (Manual) PT INR Fibrinogen dRVVT Confirm Interp Factor V Activity POC ABG pH POC ABG pCO2 24.7 L POC ABG pO2 152 H ABG pO2 ABG HCO3 ABG Base Excess ABG Hemoglobin Oxyhemoglobin Sodium Potassium Chloride Carbon Dioxide BUN Creatinine Glucose POC Glucose 113 H Lactic Acid Calcium Ionized Calcium Phosphorus Magnesium Direct Bilirubin AST ALT Alkaline Phosphatase Lactate Dehydrogenase Troponin T C-Reactive Protein Total Protein Albumin Prealbumin Triglycerides Cholesterol LDL Cholesterol Direct HDL Cholesterol 25-OH Vitamin D Total PTH Intact Urine pH Urine WBC (Auto) Urine Creatinine Urine Total Protein Fluid Total Protein Vancomycin Trough Rheumatoid Factor Complement C4 Miscellaneous Test Crossmatch See Detail 09/25/16 09/25/16 09/25/16 12:05 17:44 23:47 WBC RBC Hgb Hct MCV MCH MCHC RDW Plt Count Lymph % (Auto) [place] % (Auto) Lymph # [place] # Baso # Seg Neutrophils % Seg Neuts % (Manual) Lymphocytes % (Manual) Monocytes % (Manual) Eosinophils % (Manual) Basophils % (Manual) Nucleated RBC % Seg Neutrophils # Seg Neutrophils # Man Lymphocytes # (Manual) Monocytes # (Manual) Eosinophils # (Manual) Basophils # (Manual) PT INR Fibrinogen dRVVT Confirm Interp Factor V Activity POC ABG pH POC ABG pCO2 POC ABG pO2 ABG pO2 ABG HCO3 ABG Base Excess ABG Hemoglobin Oxyhemoglobin Sodium Potassium Chloride Carbon Dioxide BUN Creatinine Glucose POC Glucose 117 H 119 H 150 H Lactic Acid Calcium Ionized Calcium Phosphorus Magnesium Direct Bilirubin AST ALT Alkaline Phosphatase Lactate Dehydrogenase Troponin T C-Reactive Protein Total Protein Albumin Prealbumin Triglycerides Cholesterol LDL Cholesterol Direct HDL Cholesterol 25-OH Vitamin D Total PTH Intact Urine pH Urine WBC (Auto) Urine Creatinine Urine Total Protein Fluid Total Protein Vancomycin Trough Rheumatoid Factor Complement C4 Miscellaneous Test Crossmatch 09/26/16 09/26/16 09/26/16 04:25 04:25 04:25 WBC RBC 2.65 L Hgb 7.4 L Hct 21.6 L MCV MCH MCHC RDW 22.5 H Plt Count Lymph % (Auto) [place] % (Auto) Lymph # [place] # Baso # Seg Neutrophils % Seg Neuts % (Manual) Lymphocytes % (Manual) 6.0 L Monocytes % (Manual) Eosinophils % (Manual) 11.0 H Basophils % (Manual) Nucleated RBC % Seg Neutrophils # Seg Neutrophils # Man Lymphocytes # (Manual) 0.4 L Monocytes # (Manual) Eosinophils # (Manual) 0.6 H Basophils # (Manual) PT INR Fibrinogen dRVVT Confirm Interp Factor V Activity POC ABG pH POC ABG pCO2 POC ABG pO2 ABG pO2 ABG HCO3 ABG Base Excess ABG Hemoglobin Oxyhemoglobin Sodium Potassium Chloride 97.0 L Carbon Dioxide 19 L BUN 43 H Creatinine 2.6 H Glucose 130 H POC Glucose Lactic Acid 4.40 H* Calcium 6.7 L Ionized Calcium Phosphorus Magnesium Direct Bilirubin AST ALT Alkaline Phosphatase Lactate Dehydrogenase Troponin T C-Reactive Protein Total Protein Albumin Prealbumin Triglycerides Cholesterol LDL Cholesterol Direct HDL Cholesterol 25-OH Vitamin D Total PTH Intact Urine pH Urine WBC (Auto) Urine Creatinine Urine Total Protein Fluid Total Protein Vancomycin Trough Rheumatoid Factor Complement C4 Miscellaneous Test Crossmatch 09/26/16 09/26/16 09/26/16 05:20 11:44 12:12 WBC RBC Hgb Hct MCV MCH MCHC RDW Plt Count Lymph % (Auto) [place] % (Auto) Lymph # [place] # Baso # Seg Neutrophils % Seg Neuts % (Manual) Lymphocytes % (Manual) Monocytes % (Manual) Eosinophils % (Manual) Basophils % (Manual) Nucleated RBC % Seg Neutrophils # Seg Neutrophils # Man Lymphocytes # (Manual) Monocytes # (Manual) Eosinophils # (Manual) Basophils # (Manual) PT INR Fibrinogen dRVVT Confirm Interp Factor V Activity POC ABG pH POC ABG pCO2 27.0 L POC ABG pO2 69 L ABG pO2 ABG HCO3 ABG Base Excess ABG Hemoglobin Oxyhemoglobin Sodium Potassium Chloride Carbon Dioxide BUN Creatinine Glucose POC Glucose 121 H 128 H Lactic Acid Calcium Ionized Calcium Phosphorus Magnesium Direct Bilirubin AST ALT Alkaline Phosphatase Lactate Dehydrogenase Troponin T C-Reactive Protein Total Protein Albumin Prealbumin Triglycerides Cholesterol LDL Cholesterol Direct HDL Cholesterol 25-OH Vitamin D Total PTH Intact Urine pH Urine WBC (Auto) Urine Creatinine Urine Total Protein Fluid Total Protein Vancomycin Trough Rheumatoid Factor Complement C4 Miscellaneous Test Crossmatch 09/26/16 09/26/16 09/27/16 18:31 23:40 08:20 WBC RBC Hgb Hct MCV MCH MCHC RDW Plt Count Lymph % (Auto) [place] % (Auto) Lymph # [place] # Baso # Seg Neutrophils % Seg Neuts % (Manual) Lymphocytes % (Manual) Monocytes % (Manual) Eosinophils % (Manual) Basophils % (Manual) Nucleated RBC % Seg Neutrophils # Seg Neutrophils # Man Lymphocytes # (Manual) Monocytes # (Manual) Eosinophils # (Manual) Basophils # (Manual) PT INR Fibrinogen dRVVT Confirm Interp Factor V Activity POC ABG pH POC ABG pCO2 POC ABG pO2 ABG pO2 ABG HCO3 ABG Base Excess ABG Hemoglobin Oxyhemoglobin Sodium Potassium Chloride Carbon Dioxide BUN Creatinine Glucose POC Glucose 120 H 133 H Lactic Acid 4.10 H* Calcium Ionized Calcium Phosphorus Magnesium Direct Bilirubin AST ALT Alkaline Phosphatase Lactate Dehydrogenase Troponin T C-Reactive Protein Total Protein Albumin Prealbumin Triglycerides Cholesterol LDL Cholesterol Direct HDL Cholesterol 25-OH Vitamin D Total PTH Intact Urine pH Urine WBC (Auto) Urine Creatinine Urine Total Protein Fluid Total Protein Vancomycin Trough Rheumatoid Factor Complement C4 Miscellaneous Test Crossmatch 09/27/16 09/27/16 09/27/16 11:23 15:00 18:15 WBC RBC Hgb Hct MCV MCH MCHC RDW Plt Count Lymph % (Auto) [place] % (Auto) Lymph # [place] # Baso # Seg Neutrophils % Seg Neuts % (Manual) Lymphocytes % (Manual) Monocytes % (Manual) Eosinophils % (Manual) Basophils % (Manual) Nucleated RBC % Seg Neutrophils # Seg Neutrophils # Man Lymphocytes # (Manual) Monocytes # (Manual) Eosinophils # (Manual) Basophils # (Manual) PT INR Fibrinogen dRVVT Confirm Interp Factor V Activity POC ABG pH 7.459 H POC ABG pCO2 27.1 L POC ABG pO2 140 H ABG pO2 ABG HCO3 ABG Base Excess ABG Hemoglobin Oxyhemoglobin Sodium Potassium Chloride Carbon Dioxide BUN Creatinine Glucose POC Glucose 114 H 127 H Lactic Acid Calcium Ionized Calcium Phosphorus Magnesium Direct Bilirubin AST ALT Alkaline Phosphatase Lactate Dehydrogenase Troponin T C-Reactive Protein Total Protein Albumin Prealbumin Triglycerides Cholesterol LDL Cholesterol Direct HDL Cholesterol 25-OH Vitamin D Total PTH Intact Urine pH Urine WBC (Auto) Urine Creatinine Urine Total Protein Fluid Total Protein Vancomycin Trough Rheumatoid Factor Complement C4 Miscellaneous Test Crossmatch 09/27/16 09/27/16 09/28/16 Unknown Unknown 03:45 WBC RBC 2.49 L Hgb 6.8 L Hct 20.7 L MCV MCH 27 L MCHC RDW 22.1 H Plt Count Lymph % (Auto) [place] % (Auto) Lymph # [place] # Baso # Seg Neutrophils % Seg Neuts % (Manual) 32.0 L Lymphocytes % (Manual) 12.0 L Monocytes % (Manual) 11.0 H Eosinophils % (Manual) 10.0 H Basophils % (Manual) Nucleated RBC % Seg Neutrophils # Seg Neutrophils # Man Lymphocytes # (Manual) 1.0 L Monocytes # (Manual) 0.9 H Eosinophils # (Manual) 0.8 H Basophils # (Manual) PT INR Fibrinogen dRVVT Confirm Interp Factor V Activity POC ABG pH POC ABG pCO2 POC ABG pO2 ABG pO2 ABG HCO3 ABG Base Excess ABG Hemoglobin Oxyhemoglobin Sodium 135 L 135 L Potassium 3.5 L Chloride 93.6 L 94.4 L Carbon Dioxide 17 L 21 L BUN 45 H 28 H Creatinine 3.3 H 2.5 H Glucose 106 H POC Glucose Lactic Acid Calcium 7.3 L 7.1 L Ionized Calcium Phosphorus Magnesium Direct Bilirubin AST ALT Alkaline Phosphatase Lactate Dehydrogenase Troponin T C-Reactive Protein Total Protein Albumin Prealbumin Triglycerides Cholesterol LDL Cholesterol Direct HDL Cholesterol 25-OH Vitamin D Total PTH Intact Urine pH Urine WBC (Auto) Urine Creatinine Urine Total Protein Fluid Total Protein Vancomycin Trough Rheumatoid Factor Complement C4 Miscellaneous Test Crossmatch 09/28/16 09/28/16 09/28/16 03:45 07:25 11:58 WBC 13.3 H RBC 3.01 L Hgb 8.4 L Hct 25.0 L MCV MCH MCHC RDW 20.5 H Plt Count 128 L Lymph % (Auto) [place] % (Auto) Lymph # [place] # Baso # Seg Neutrophils % Seg Neuts % (Manual) Lymphocytes % (Manual) 7.0 L Monocytes % (Manual) Eosinophils % (Manual) 6.0 H Basophils % (Manual) Nucleated RBC % Seg Neutrophils # Seg Neutrophils # Man Lymphocytes # (Manual) 0.9 L Monocytes # (Manual) Eosinophils # (Manual) 0.8 H Basophils # (Manual) PT INR Fibrinogen dRVVT Confirm Interp Factor V Activity POC ABG pH POC ABG pCO2 POC ABG pO2 ABG pO2 ABG HCO3 ABG Base Excess ABG Hemoglobin Oxyhemoglobin Sodium Potassium Chloride Carbon Dioxide BUN Creatinine Glucose POC Glucose 121 H Lactic Acid 4.50 H* Calcium Ionized Calcium Phosphorus Magnesium Direct Bilirubin AST ALT Alkaline Phosphatase Lactate Dehydrogenase Troponin T C-Reactive Protein Total Protein Albumin Prealbumin Triglycerides Cholesterol LDL Cholesterol Direct HDL Cholesterol 25-OH Vitamin D Total PTH Intact Urine pH Urine WBC (Auto) Urine Creatinine Urine Total Protein Fluid Total Protein Vancomycin Trough Rheumatoid Factor Complement C4 Miscellaneous Test Crossmatch 09/29/16 09/29/16 09/29/16 06:45 06:45 06:45 WBC 14.9 H RBC 2.74 L Hgb 7.6 L Hct 23.2 L MCV MCH MCHC RDW 20.5 H Plt Count 81 L Lymph % (Auto) [place] % (Auto) Lymph # [place] # Baso # Seg Neutrophils % Seg Neuts % (Manual) 81.0 H Lymphocytes % (Manual) 4.0 L Monocytes % (Manual) Eosinophils % (Manual) Basophils % (Manual) Nucleated RBC % Seg Neutrophils # Seg Neutrophils # Man 12.1 H Lymphocytes # (Manual) 0.6 L Monocytes # (Manual) Eosinophils # (Manual) Basophils # (Manual) PT INR Fibrinogen dRVVT Confirm Interp Factor V Activity POC ABG pH POC ABG pCO2 POC ABG pO2 ABG pO2 ABG HCO3 ABG Base Excess ABG Hemoglobin Oxyhemoglobin Sodium 133 L Potassium 3.4 L Chloride 92.5 L Carbon Dioxide 21 L BUN 33 H Creatinine 3.0 H Glucose POC Glucose Lactic Acid Calcium 6.6 L Ionized Calcium Phosphorus Magnesium 1.40 L Direct Bilirubin 0.9 H AST ALT Alkaline Phosphatase Lactate Dehydrogenase Troponin T C-Reactive Protein Total Protein 4.3 L Albumin 1.3 L Prealbumin Triglycerides Cholesterol LDL Cholesterol Direct HDL Cholesterol 25-OH Vitamin D Total PTH Intact Urine pH Urine WBC (Auto) Urine Creatinine Urine Total Protein Fluid Total Protein Vancomycin Trough Rheumatoid Factor Complement C4 Miscellaneous Test Crossmatch 09/29/16 09/29/16 09/30/16 17:52 20:12 00:07 WBC RBC Hgb Hct MCV MCH MCHC RDW Plt Count Lymph % (Auto) [place] % (Auto) Lymph # [place] # Baso # Seg Neutrophils % Seg Neuts % (Manual) Lymphocytes % (Manual) Monocytes % (Manual) Eosinophils % (Manual) Basophils % (Manual) Nucleated RBC % Seg Neutrophils # Seg Neutrophils # Man Lymphocytes # (Manual) Monocytes # (Manual) Eosinophils # (Manual) Basophils # (Manual) PT INR Fibrinogen dRVVT Confirm Interp Factor V Activity POC ABG pH POC ABG pCO2 POC ABG pO2 ABG pO2 ABG HCO3 ABG Base Excess ABG Hemoglobin Oxyhemoglobin Sodium Potassium Chloride Carbon Dioxide BUN Creatinine Glucose POC Glucose 50 L 51 L Lactic Acid Calcium Ionized Calcium Phosphorus Magnesium Direct Bilirubin AST ALT Alkaline Phosphatase Lactate Dehydrogenase Troponin T 0.204 H* C-Reactive Protein Total Protein Albumin Prealbumin Triglycerides Cholesterol 31 L LDL Cholesterol Direct 4 L HDL Cholesterol 3 L 25-OH Vitamin D Total PTH Intact Urine pH Urine WBC (Auto) Urine Creatinine Urine Total Protein Fluid Total Protein Vancomycin Trough Rheumatoid Factor Complement C4 Miscellaneous Test Crossmatch 09/30/16 09/30/16 09/30/16 01:30 05:15 06:10 WBC RBC Hgb Hct MCV MCH MCHC RDW Plt Count Lymph % (Auto) [place] % (Auto) Lymph # [place] # Baso # Seg Neutrophils % Seg Neuts % (Manual) Lymphocytes % (Manual) Monocytes % (Manual) Eosinophils % (Manual) Basophils % (Manual) Nucleated RBC % Seg Neutrophils # Seg Neutrophils # Man Lymphocytes # (Manual) Monocytes # (Manual) Eosinophils # (Manual) Basophils # (Manual) PT INR Fibrinogen dRVVT Confirm Interp Factor V Activity POC ABG pH POC ABG pCO2 POC ABG pO2 ABG pO2 ABG HCO3 ABG Base Excess ABG Hemoglobin Oxyhemoglobin Sodium 133 L Potassium 3.2 L Chloride 93.2 L Carbon Dioxide 19 L BUN 36 H Creatinine 3.2 H Glucose 104 H POC Glucose 167 H 146 H Lactic Acid Calcium 6.4 L Ionized Calcium Phosphorus Magnesium 1.60 L Direct Bilirubin AST ALT Alkaline Phosphatase Lactate Dehydrogenase Troponin T C-Reactive Protein Total Protein Albumin Prealbumin Triglycerides Cholesterol LDL Cholesterol Direct HDL Cholesterol 25-OH Vitamin D Total PTH Intact Urine pH Urine WBC (Auto) Urine Creatinine Urine Total Protein Fluid Total Protein Vancomycin Trough Rheumatoid Factor Complement C4 Miscellaneous Test Crossmatch 09/30/16 09/30/16 09/30/16 11:26 13:39 18:38 WBC RBC Hgb Hct MCV MCH MCHC RDW Plt Count Lymph % (Auto) [place] % (Auto) Lymph # [place] # Baso # Seg Neutrophils % Seg Neuts % (Manual) Lymphocytes % (Manual) Monocytes % (Manual) Eosinophils % (Manual) Basophils % (Manual) Nucleated RBC % Seg Neutrophils # Seg Neutrophils # Man Lymphocytes # (Manual) Monocytes # (Manual) Eosinophils # (Manual) Basophils # (Manual) PT INR Fibrinogen dRVVT Confirm Interp Factor V Activity POC ABG pH 7.479 H POC ABG pCO2 29.8 L POC ABG pO2 117 H ABG pO2 ABG HCO3 ABG Base Excess ABG Hemoglobin Oxyhemoglobin Sodium Potassium Chloride Carbon Dioxide BUN Creatinine Glucose POC Glucose 140 H 122 H Lactic Acid Calcium Ionized Calcium Phosphorus Magnesium Direct Bilirubin AST ALT Alkaline Phosphatase Lactate Dehydrogenase Troponin T C-Reactive Protein Total Protein Albumin Prealbumin Triglycerides Cholesterol LDL Cholesterol Direct HDL Cholesterol 25-OH Vitamin D Total PTH Intact Urine pH Urine WBC (Auto) Urine Creatinine Urine Total Protein Fluid Total Protein Vancomycin Trough Rheumatoid Factor Complement C4 Miscellaneous Test Crossmatch 10/01/16 10/01/16 10/01/16 06:00 06:00 12:37 WBC 12.6 H RBC 2.75 L Hgb 7.3 L Hct 23.3 L MCV MCH 27 L MCHC RDW 20.6 H Plt Count 72 L Lymph % (Auto) [place] % (Auto) Lymph # [place] # Baso # Seg Neutrophils % Seg Neuts % (Manual) 31.0 L Lymphocytes % (Manual) 8.0 L Monocytes % (Manual) Eosinophils % (Manual) Basophils % (Manual) Nucleated RBC % 3.0 H Seg Neutrophils # Seg Neutrophils # Man Lymphocytes # (Manual) 1.0 L Monocytes # (Manual) Eosinophils # (Manual) Basophils # (Manual) PT INR Fibrinogen dRVVT Confirm Interp Factor V Activity POC ABG pH POC ABG pCO2 POC ABG pO2 ABG pO2 ABG HCO3 ABG Base Excess ABG Hemoglobin Oxyhemoglobin Sodium 127 L Potassium Chloride 86.8 L Carbon Dioxide 20 L BUN 42 H Creatinine 3.5 H Glucose POC Glucose 65 L Lactic Acid Calcium 7.0 L Ionized Calcium Phosphorus Magnesium Direct Bilirubin AST ALT Alkaline Phosphatase Lactate Dehydrogenase Troponin T C-Reactive Protein Total Protein Albumin Prealbumin Triglycerides Cholesterol LDL Cholesterol Direct HDL Cholesterol 25-OH Vitamin D Total PTH Intact Urine pH Urine WBC (Auto) Urine Creatinine Urine Total Protein Fluid Total Protein Vancomycin Trough Rheumatoid Factor Complement C4 Miscellaneous Test Crossmatch 10/01/16 10/01/16 10/02/16 17:39 23:32 00:59 WBC RBC Hgb Hct MCV MCH MCHC RDW Plt Count Lymph % (Auto) [place] % (Auto) Lymph # [place] # Baso # Seg Neutrophils % Seg Neuts % (Manual) Lymphocytes % (Manual) Monocytes % (Manual) Eosinophils % (Manual) Basophils % (Manual) Nucleated RBC % Seg Neutrophils # Seg Neutrophils # Man Lymphocytes # (Manual) Monocytes # (Manual) Eosinophils # (Manual) Basophils # (Manual) PT INR Fibrinogen dRVVT Confirm Interp Factor V Activity POC ABG pH POC ABG pCO2 POC ABG pO2 ABG pO2 ABG HCO3 ABG Base Excess ABG Hemoglobin Oxyhemoglobin Sodium Potassium Chloride Carbon Dioxide BUN Creatinine Glucose POC Glucose 107 H 52 L 145 H Lactic Acid Calcium Ionized Calcium Phosphorus Magnesium Direct Bilirubin AST ALT Alkaline Phosphatase Lactate Dehydrogenase Troponin T C-Reactive Protein Total Protein Albumin Prealbumin Triglycerides Cholesterol LDL Cholesterol Direct HDL Cholesterol 25-OH Vitamin D Total PTH Intact Urine pH Urine WBC (Auto) Urine Creatinine Urine Total Protein Fluid Total Protein Vancomycin Trough Rheumatoid Factor Complement C4 Miscellaneous Test Crossmatch 10/02/16 10/02/16 10/02/16 10:30 10:50 10:50 WBC 14.7 H RBC 2.76 L Hgb 7.4 L Hct 23.6 L MCV MCH 27 L MCHC RDW 20.2 H Plt Count 79 L Lymph % (Auto) [place] % (Auto) Lymph # [place] # Baso # Seg Neutrophils % Seg Neuts % (Manual) 86.0 H Lymphocytes % (Manual) 6.0 L Monocytes % (Manual) Eosinophils % (Manual) Basophils % (Manual) Nucleated RBC % Seg Neutrophils # Seg Neutrophils # Man 12.6 H Lymphocytes # (Manual) 0.9 L Monocytes # (Manual) Eosinophils # (Manual) Basophils # (Manual) PT INR Fibrinogen dRVVT Confirm Interp Factor V Activity POC ABG pH 7.486 H POC ABG pCO2 30.1 L POC ABG pO2 108 H ABG pO2 ABG HCO3 ABG Base Excess ABG Hemoglobin Oxyhemoglobin Sodium 131 L Potassium 3.4 L Chloride 89.9 L Carbon Dioxide BUN 26 H Creatinine 2.6 H Glucose POC Glucose Lactic Acid Calcium 7.0 L Ionized Calcium Phosphorus Magnesium Direct Bilirubin AST ALT Alkaline Phosphatase Lactate Dehydrogenase Troponin T C-Reactive Protein Total Protein Albumin Prealbumin Triglycerides Cholesterol LDL Cholesterol Direct HDL Cholesterol 25-OH Vitamin D Total PTH Intact Urine pH Urine WBC (Auto) Urine Creatinine Urine Total Protein Fluid Total Protein Vancomycin Trough Rheumatoid Factor Complement C4 Miscellaneous Test Crossmatch 10/02/16 10/03/16 10/03/16 23:45 00:45 05:10 WBC 12.9 H RBC 2.77 L Hgb 7.6 L Hct 23.7 L MCV MCH 27 L MCHC RDW 19.7 H Plt Count 89 L Lymph % (Auto) [place] % (Auto) Lymph # [place] # Baso # Seg Neutrophils % Seg Neuts % (Manual) Lymphocytes % (Manual) 8.0 L Monocytes % (Manual) Eosinophils % (Manual) Basophils % (Manual) Nucleated RBC % Seg Neutrophils # 11.9 H Seg Neutrophils # Man Lymphocytes # (Manual) 1.0 L Monocytes # (Manual) Eosinophils # (Manual) Basophils # (Manual) PT INR Fibrinogen dRVVT Confirm Interp Factor V Activity POC ABG pH POC ABG pCO2 POC ABG pO2 ABG pO2 ABG HCO3 ABG Base Excess ABG Hemoglobin Oxyhemoglobin Sodium Potassium Chloride Carbon Dioxide BUN Creatinine Glucose POC Glucose 55 L 199 H Lactic Acid Calcium Ionized Calcium Phosphorus Magnesium Direct Bilirubin AST ALT Alkaline Phosphatase Lactate Dehydrogenase Troponin T C-Reactive Protein Total Protein Albumin Prealbumin Triglycerides Cholesterol LDL Cholesterol Direct HDL Cholesterol 25-OH Vitamin D Total PTH Intact Urine pH Urine WBC (Auto) Urine Creatinine Urine Total Protein Fluid Total Protein Vancomycin Trough Rheumatoid Factor Complement C4 Miscellaneous Test Crossmatch 10/03/16 10/03/16 10/03/16 05:10 12:14 13:18 WBC RBC Hgb Hct MCV MCH MCHC RDW Plt Count Lymph % (Auto) [place] % (Auto) Lymph # [place] # Baso # Seg Neutrophils % Seg Neuts % (Manual) Lymphocytes % (Manual) Monocytes % (Manual) Eosinophils % (Manual) Basophils % (Manual) Nucleated RBC % Seg Neutrophils # Seg Neutrophils # Man Lymphocytes # (Manual) Monocytes # (Manual) Eosinophils # (Manual) Basophils # (Manual) PT INR Fibrinogen dRVVT Confirm Interp Factor V Activity POC ABG pH POC ABG pCO2 POC ABG pO2 ABG pO2 ABG HCO3 ABG Base Excess ABG Hemoglobin Oxyhemoglobin Sodium 129 L Potassium 3.3 L Chloride 88.8 L Carbon Dioxide 20 L BUN 29 H Creatinine 2.8 H Glucose POC Glucose 68 L 127 H Lactic Acid Calcium 7.2 L Ionized Calcium Phosphorus Magnesium Direct Bilirubin AST ALT Alkaline Phosphatase Lactate Dehydrogenase Troponin T C-Reactive Protein Total Protein Albumin Prealbumin Triglycerides Cholesterol LDL Cholesterol Direct HDL Cholesterol 25-OH Vitamin D Total PTH Intact Urine pH Urine WBC (Auto) Urine Creatinine Urine Total Protein Fluid Total Protein Vancomycin Trough Rheumatoid Factor Complement C4 Miscellaneous Test Crossmatch 10/03/16 10/03/16 10/03/16 14:42 18:21 19:09 WBC RBC Hgb Hct MCV MCH MCHC RDW Plt Count Lymph % (Auto) [place] % (Auto) Lymph # [place] # Baso # Seg Neutrophils % Seg Neuts % (Manual) Lymphocytes % (Manual) Monocytes % (Manual) Eosinophils % (Manual) Basophils % (Manual) Nucleated RBC % Seg Neutrophils # Seg Neutrophils # Man Lymphocytes # (Manual) Monocytes # (Manual) Eosinophils # (Manual) Basophils # (Manual) PT INR Fibrinogen dRVVT Confirm Interp Factor V Activity POC ABG pH 7.499 H POC ABG pCO2 28.4 L POC ABG pO2 44 L ABG pO2 ABG HCO3 ABG Base Excess ABG Hemoglobin Oxyhemoglobin Sodium Potassium Chloride Carbon Dioxide BUN Creatinine Glucose POC Glucose 64 L 205 H Lactic Acid Calcium Ionized Calcium Phosphorus Magnesium Direct Bilirubin AST ALT Alkaline Phosphatase Lactate Dehydrogenase Troponin T C-Reactive Protein Total Protein Albumin Prealbumin Triglycerides Cholesterol LDL Cholesterol Direct HDL Cholesterol 25-OH Vitamin D Total PTH Intact Urine pH Urine WBC (Auto) Urine Creatinine Urine Total Protein Fluid Total Protein Vancomycin Trough Rheumatoid Factor Complement C4 Miscellaneous Test Crossmatch 10/03/16 10/04/16 10/04/16 23:33 04:18 06:30 WBC RBC 2.54 L Hgb 7.1 L Hct 21.7 L MCV MCH MCHC RDW 19.5 H Plt Count 76 L Lymph % (Auto) [place] % (Auto) Lymph # [place] # Baso # Seg Neutrophils % Seg Neuts % (Manual) 88.0 H Lymphocytes % (Manual) 6.0 L Monocytes % (Manual) Eosinophils % (Manual) Basophils % (Manual) Nucleated RBC % Seg Neutrophils # Seg Neutrophils # Man 8.8 H Lymphocytes # (Manual) 0.6 L Monocytes # (Manual) Eosinophils # (Manual) Basophils # (Manual) PT INR Fibrinogen dRVVT Confirm Interp Factor V Activity POC ABG pH 7.461 H POC ABG pCO2 33.6 L POC ABG pO2 211 H ABG pO2 ABG HCO3 ABG Base Excess ABG Hemoglobin Oxyhemoglobin Sodium Potassium Chloride Carbon Dioxide BUN Creatinine Glucose POC Glucose 136 H Lactic Acid Calcium Ionized Calcium Phosphorus Magnesium Direct Bilirubin AST ALT Alkaline Phosphatase Lactate Dehydrogenase Troponin T C-Reactive Protein Total Protein Albumin Prealbumin Triglycerides Cholesterol LDL Cholesterol Direct HDL Cholesterol 25-OH Vitamin D Total PTH Intact Urine pH Urine WBC (Auto) Urine Creatinine Urine Total Protein Fluid Total Protein Vancomycin Trough Rheumatoid Factor Complement C4 Miscellaneous Test Crossmatch 10/04/16 10/04/16 10/04/16 06:30 11:45 17:54 WBC RBC Hgb Hct MCV MCH MCHC RDW Plt Count Lymph % (Auto) [place] % (Auto) Lymph # [place] # Baso # Seg Neutrophils % Seg Neuts % (Manual) Lymphocytes % (Manual) Monocytes % (Manual) Eosinophils % (Manual) Basophils % (Manual) Nucleated RBC % Seg Neutrophils # Seg Neutrophils # Man Lymphocytes # (Manual) Monocytes # (Manual) Eosinophils # (Manual) Basophils # (Manual) PT INR Fibrinogen dRVVT Confirm Interp Factor V Activity POC ABG pH POC ABG pCO2 POC ABG pO2 ABG pO2 ABG HCO3 ABG Base Excess ABG Hemoglobin Oxyhemoglobin Sodium 128 L Potassium Chloride 87.4 L Carbon Dioxide 20 L BUN 34 H Creatinine 2.9 H Glucose 127 H POC Glucose 158 H 160 H Lactic Acid Calcium 7.4 L Ionized Calcium Phosphorus Magnesium Direct Bilirubin AST ALT Alkaline Phosphatase Lactate Dehydrogenase Troponin T C-Reactive Protein Total Protein Albumin Prealbumin Triglycerides Cholesterol LDL Cholesterol Direct HDL Cholesterol 25-OH Vitamin D Total PTH Intact Urine pH Urine WBC (Auto) Urine Creatinine Urine Total Protein Fluid Total Protein Vancomycin Trough Rheumatoid Factor Complement C4 Miscellaneous Test Crossmatch 10/04/16 10/05/16 10/05/16 23:25 04:30 05:00 WBC RBC 2.64 L Hgb 7.5 L Hct 22.6 L MCV MCH MCHC RDW 19.3 H Plt Count 80 L Lymph % (Auto) [place] % (Auto) Lymph # [place] # Baso # Seg Neutrophils % Seg Neuts % (Manual) Lymphocytes % (Manual) 12.0 L Monocytes % (Manual) Eosinophils % (Manual) Basophils % (Manual) Nucleated RBC % Seg Neutrophils # Seg Neutrophils # Man Lymphocytes # (Manual) Monocytes # (Manual) Eosinophils # (Manual) Basophils # (Manual) PT INR Fibrinogen dRVVT Confirm Interp Factor V Activity POC ABG pH 7.475 H POC ABG pCO2 33.3 L POC ABG pO2 140 H ABG pO2 ABG HCO3 ABG Base Excess ABG Hemoglobin Oxyhemoglobin Sodium Potassium Chloride Carbon Dioxide BUN Creatinine Glucose POC Glucose 141 H Lactic Acid Calcium Ionized Calcium Phosphorus Magnesium Direct Bilirubin AST ALT Alkaline Phosphatase Lactate Dehydrogenase Troponin T C-Reactive Protein Total Protein Albumin Prealbumin Triglycerides Cholesterol LDL Cholesterol Direct HDL Cholesterol 25-OH Vitamin D Total PTH Intact Urine pH Urine WBC (Auto) Urine Creatinine Urine Total Protein Fluid Total Protein Vancomycin Trough Rheumatoid Factor Complement C4 Miscellaneous Test Crossmatch 10/05/16 10/05/16 10/05/16 05:00 05:09 12:58 WBC RBC Hgb Hct MCV MCH MCHC RDW Plt Count Lymph % (Auto) [place] % (Auto) Lymph # [place] # Baso # Seg Neutrophils % Seg Neuts % (Manual) Lymphocytes % (Manual) Monocytes % (Manual) Eosinophils % (Manual) Basophils % (Manual) Nucleated RBC % Seg Neutrophils # Seg Neutrophils # Man Lymphocytes # (Manual) Monocytes # (Manual) Eosinophils # (Manual) Basophils # (Manual) PT INR Fibrinogen dRVVT Confirm Interp Factor V Activity POC ABG pH POC ABG pCO2 POC ABG pO2 ABG pO2 ABG HCO3 ABG Base Excess ABG Hemoglobin Oxyhemoglobin Sodium 131 L Potassium Chloride 94.0 L Carbon Dioxide 20 L BUN 22 H Creatinine 2.0 H Glucose 123 H POC Glucose 166 H 179 H Lactic Acid Calcium 7.7 L Ionized Calcium Phosphorus 2.20 L D Magnesium Direct Bilirubin AST ALT Alkaline Phosphatase Lactate Dehydrogenase Troponin T C-Reactive Protein Total Protein Albumin Prealbumin Triglycerides Cholesterol LDL Cholesterol Direct HDL Cholesterol 25-OH Vitamin D Total PTH Intact Urine pH Urine WBC (Auto) Urine Creatinine Urine Total Protein Fluid Total Protein Vancomycin Trough Rheumatoid Factor Complement C4 Miscellaneous Test Crossmatch 10/05/16 10/05/16 10/05/16 15:50 18:53 23:12 WBC RBC Hgb Hct MCV MCH MCHC RDW Plt Count Lymph % (Auto) [place] % (Auto) Lymph # [place] # Baso # Seg Neutrophils % Seg Neuts % (Manual) Lymphocytes % (Manual) Monocytes % (Manual) Eosinophils % (Manual) Basophils % (Manual) Nucleated RBC % Seg Neutrophils # Seg Neutrophils # Man Lymphocytes # (Manual) Monocytes # (Manual) Eosinophils # (Manual) Basophils # (Manual) PT INR Fibrinogen dRVVT Confirm Interp Factor V Activity POC ABG pH POC ABG pCO2 POC ABG pO2 ABG pO2 ABG HCO3 ABG Base Excess ABG Hemoglobin Oxyhemoglobin Sodium Potassium Chloride Carbon Dioxide BUN Creatinine Glucose POC Glucose 150 H 164 H Lactic Acid Calcium Ionized Calcium Phosphorus Magnesium Direct Bilirubin AST ALT Alkaline Phosphatase Lactate Dehydrogenase Troponin T C-Reactive Protein Total Protein Albumin Prealbumin Triglycerides Cholesterol LDL Cholesterol Direct HDL Cholesterol 25-OH Vitamin D Total PTH Intact Urine pH Urine WBC (Auto) Urine Creatinine Urine Total Protein Fluid Total Protein Vancomycin Trough Rheumatoid Factor Complement C4 Miscellaneous Test Crossmatch See Detail 10/06/16 10/06/16 10/06/16 03:50 03:50 04:53 WBC RBC 3.00 L Hgb 8.6 L Hct 25.8 L MCV MCH MCHC RDW 17.9 H Plt Count 65 L Lymph % (Auto) [place] % (Auto) Lymph # [place] # Baso # Seg Neutrophils % Seg Neuts % (Manual) 30.0 L Lymphocytes % (Manual) 5.0 L Monocytes % (Manual) Eosinophils % (Manual) Basophils % (Manual) Nucleated RBC % Seg Neutrophils # Seg Neutrophils # Man Lymphocytes # (Manual) 0.4 L Monocytes # (Manual) Eosinophils # (Manual) Basophils # (Manual) PT INR Fibrinogen dRVVT Confirm Interp Factor V Activity POC ABG pH 7.310 L POC ABG pCO2 49.0 H POC ABG pO2 ABG pO2 ABG HCO3 ABG Base Excess ABG Hemoglobin Oxyhemoglobin Sodium 133 L Potassium Chloride 95.9 L Carbon Dioxide BUN 26 H Creatinine 2.0 H Glucose 116 H POC Glucose Lactic Acid Calcium 7.8 L Ionized Calcium Phosphorus Magnesium Direct Bilirubin AST ALT Alkaline Phosphatase Lactate Dehydrogenase Troponin T C-Reactive Protein Total Protein Albumin Prealbumin Triglycerides Cholesterol LDL Cholesterol Direct HDL Cholesterol 25-OH Vitamin D Total PTH Intact Urine pH Urine WBC (Auto) Urine Creatinine Urine Total Protein Fluid Total Protein Vancomycin Trough Rheumatoid Factor Complement C4 Miscellaneous Test Crossmatch 10/06/16 10/06/16 10/06/16 05:23 11:52 18:34 WBC RBC Hgb Hct MCV MCH MCHC RDW Plt Count Lymph % (Auto) [place] % (Auto) Lymph # [place] # Baso # Seg Neutrophils % Seg Neuts % (Manual) Lymphocytes % (Manual) Monocytes % (Manual) Eosinophils % (Manual) Basophils % (Manual) Nucleated RBC % Seg Neutrophils # Seg Neutrophils # Man Lymphocytes # (Manual) Monocytes # (Manual) Eosinophils # (Manual) Basophils # (Manual) PT INR Fibrinogen dRVVT Confirm Interp Factor V Activity POC ABG pH POC ABG pCO2 POC ABG pO2 ABG pO2 ABG HCO3 ABG Base Excess ABG Hemoglobin Oxyhemoglobin Sodium Potassium Chloride Carbon Dioxide BUN Creatinine Glucose POC Glucose 126 H 116 H 129 H Lactic Acid Calcium Ionized Calcium Phosphorus Magnesium Direct Bilirubin AST ALT Alkaline Phosphatase Lactate Dehydrogenase Troponin T C-Reactive Protein Total Protein Albumin Prealbumin Triglycerides Cholesterol LDL Cholesterol Direct HDL Cholesterol 25-OH Vitamin D Total PTH Intact Urine pH Urine WBC (Auto) Urine Creatinine Urine Total Protein Fluid Total Protein Vancomycin Trough Rheumatoid Factor Complement C4 Miscellaneous Test Crossmatch 10/07/16 10/07/16 10/07/16 03:45 05:00 10:00 WBC 17.0 H RBC 2.68 L Hgb 7.3 L Hct 25.3 L MCV MCH 27 L MCHC 29 L RDW 19.6 H Plt Count 74 L Lymph % (Auto) [place] % (Auto) Lymph # [place] # Baso # Seg Neutrophils % Seg Neuts % (Manual) Lymphocytes % (Manual) 12.0 L Monocytes % (Manual) Eosinophils % (Manual) Basophils % (Manual) Nucleated RBC % 4.0 H Seg Neutrophils # Seg Neutrophils # Man 10.7 H Lymphocytes # (Manual) Monocytes # (Manual) Eosinophils # (Manual) Basophils # (Manual) PT INR Fibrinogen dRVVT Confirm Interp Factor V Activity POC ABG pH POC ABG pCO2 POC ABG pO2 ABG pO2 ABG HCO3 ABG Base Excess ABG Hemoglobin Oxyhemoglobin Sodium 130 L Potassium 3.2 L Chloride 93.9 L Carbon Dioxide 20 L BUN 44 H Creatinine 2.7 H Glucose 129 H POC Glucose Lactic Acid Calcium 7.4 L Ionized Calcium Phosphorus Magnesium Direct Bilirubin AST ALT 6 L Alkaline Phosphatase 195 H Lactate Dehydrogenase Troponin T C-Reactive Protein Total Protein 4.9 L Albumin 1.0 L Prealbumin Triglycerides Cholesterol LDL Cholesterol Direct HDL Cholesterol 25-OH Vitamin D Total PTH Intact Urine pH Urine WBC (Auto) Urine Creatinine Urine Total Protein Fluid Total Protein Vancomycin Trough Rheumatoid Factor Complement C4 Miscellaneous Test Flexitest 1 H Crossmatch 10/07/16 10/07/16 10/07/16 10:00 11:24 18:10 WBC RBC Hgb Hct MCV MCH MCHC RDW Plt Count Lymph % (Auto) [place] % (Auto) Lymph # [place] # Baso # Seg Neutrophils % Seg Neuts % (Manual) Lymphocytes % (Manual) Monocytes % (Manual) Eosinophils % (Manual) Basophils % (Manual) Nucleated RBC % Seg Neutrophils # Seg Neutrophils # Man Lymphocytes # (Manual) Monocytes # (Manual) Eosinophils # (Manual) Basophils # (Manual) PT INR Fibrinogen dRVVT Confirm Interp Factor V Activity POC ABG pH POC ABG pCO2 POC ABG pO2 ABG pO2 ABG HCO3 ABG Base Excess ABG Hemoglobin Oxyhemoglobin Sodium Potassium Chloride Carbon Dioxide BUN Creatinine Glucose POC Glucose 116 H 130 H Lactic Acid Calcium Ionized Calcium Phosphorus Magnesium Direct Bilirubin AST ALT Alkaline Phosphatase Lactate Dehydrogenase Troponin T C-Reactive Protein 19.40 H Total Protein Albumin Prealbumin Triglycerides Cholesterol LDL Cholesterol Direct HDL Cholesterol 25-OH Vitamin D Total PTH Intact Urine pH Urine WBC (Auto) Urine Creatinine Urine Total Protein Fluid Total Protein Vancomycin Trough Rheumatoid Factor Complement C4 Miscellaneous Test Crossmatch 10/07/16 10/08/16 10/08/16 18:30 00:00 04:00 WBC RBC Hgb Hct MCV MCH MCHC RDW Plt Count Lymph % (Auto) [place] % (Auto) Lymph # [place] # Baso # Seg Neutrophils % Seg Neuts % (Manual) Lymphocytes % (Manual) Monocytes % (Manual) Eosinophils % (Manual) Basophils % (Manual) Nucleated RBC % Seg Neutrophils # Seg Neutrophils # Man Lymphocytes # (Manual) Monocytes # (Manual) Eosinophils # (Manual) Basophils # (Manual) PT INR Fibrinogen dRVVT Confirm Interp Factor V Activity POC ABG pH POC ABG pCO2 POC ABG pO2 ABG pO2 ABG HCO3 ABG Base Excess ABG Hemoglobin Oxyhemoglobin Sodium 132 L Potassium 3.3 L Chloride 93.6 L Carbon Dioxide 17 L BUN 59 H Creatinine 2.7 H Glucose 121 H POC Glucose 122 H Lactic Acid Calcium 7.6 L Ionized Calcium Phosphorus Magnesium Direct Bilirubin AST ALT Alkaline Phosphatase Lactate Dehydrogenase Troponin T C-Reactive Protein Total Protein Albumin Prealbumin Triglycerides Cholesterol LDL Cholesterol Direct HDL Cholesterol 25-OH Vitamin D Total PTH Intact Urine pH Urine WBC (Auto) > 182.0 H Urine Creatinine Urine Total Protein Fluid Total Protein Vancomycin Trough Rheumatoid Factor Complement C4 Miscellaneous Test Crossmatch 10/08/16 10/08/16 10/08/16 04:30 05:30 11:51 WBC RBC 5.15 H Hgb 14.4 H D Hct 44.5 H D MCV MCH MCHC RDW 19.5 H Plt Count 56 L Lymph % (Auto) [place] % (Auto) Lymph # [place] # Baso # Seg Neutrophils % Seg Neuts % (Manual) 24.0 L Lymphocytes % (Manual) 8.0 L Monocytes % (Manual) Eosinophils % (Manual) Basophils % (Manual) Nucleated RBC % 9.0 H Seg Neutrophils # Seg Neutrophils # Man Lymphocytes # (Manual) 0.7 L Monocytes # (Manual) Eosinophils # (Manual) Basophils # (Manual) PT INR Fibrinogen dRVVT Confirm Interp Factor V Activity POC ABG pH POC ABG pCO2 POC ABG pO2 ABG pO2 ABG HCO3 ABG Base Excess ABG Hemoglobin Oxyhemoglobin Sodium Potassium Chloride Carbon Dioxide BUN Creatinine Glucose POC Glucose 125 H 150 H Lactic Acid Calcium Ionized Calcium Phosphorus Magnesium Direct Bilirubin AST ALT Alkaline Phosphatase Lactate Dehydrogenase Troponin T C-Reactive Protein Total Protein Albumin Prealbumin Triglycerides Cholesterol LDL Cholesterol Direct HDL Cholesterol 25-OH Vitamin D Total PTH Intact Urine pH Urine WBC (Auto) Urine Creatinine Urine Total Protein Fluid Total Protein Vancomycin Trough Rheumatoid Factor Complement C4 Miscellaneous Test Crossmatch 10/08/16 10/08/16 10/08/16 12:49 17:07 19:30 WBC RBC Hgb 7.1 L D Hct 22.4 L D MCV MCH MCHC RDW Plt Count Lymph % (Auto) [place] % (Auto) Lymph # [place] # Baso # Seg Neutrophils % Seg Neuts % (Manual) Lymphocytes % (Manual) Monocytes % (Manual) Eosinophils % (Manual) Basophils % (Manual) Nucleated RBC % Seg Neutrophils # Seg Neutrophils # Man Lymphocytes # (Manual) Monocytes # (Manual) Eosinophils # (Manual) Basophils # (Manual) PT INR Fibrinogen dRVVT Confirm Interp Factor V Activity POC ABG pH POC ABG pCO2 28.2 L POC ABG pO2 111 H ABG pO2 ABG HCO3 ABG Base Excess ABG Hemoglobin Oxyhemoglobin Sodium Potassium Chloride Carbon Dioxide BUN Creatinine Glucose POC Glucose 145 H Lactic Acid Calcium Ionized Calcium Phosphorus Magnesium Direct Bilirubin AST ALT Alkaline Phosphatase Lactate Dehydrogenase Troponin T C-Reactive Protein Total Protein Albumin Prealbumin Triglycerides Cholesterol LDL Cholesterol Direct HDL Cholesterol 25-OH Vitamin D Total PTH Intact Urine pH Urine WBC (Auto) Urine Creatinine Urine Total Protein Fluid Total Protein Vancomycin Trough Rheumatoid Factor Complement C4 Miscellaneous Test Crossmatch 10/08/16 10/09/16 10/09/16 19:30 03:45 03:45 WBC 12.6 H RBC 2.36 L Hgb 6.7 L Hct 21.1 L MCV MCH MCHC RDW 19.5 H Plt Count 75 L Lymph % (Auto) [place] % (Auto) Lymph # [place] # Baso # Seg Neutrophils % Seg Neuts % (Manual) Lymphocytes % (Manual) Monocytes % (Manual) 10.0 H Eosinophils % (Manual) Basophils % (Manual) Nucleated RBC % 3.0 H Seg Neutrophils # Seg Neutrophils # Man Lymphocytes # (Manual) Monocytes # (Manual) 1.3 H Eosinophils # (Manual) Basophils # (Manual) PT 18.0 H INR 1.41 H Fibrinogen dRVVT Confirm Interp Factor V Activity POC ABG pH POC ABG pCO2 POC ABG pO2 ABG pO2 ABG HCO3 ABG Base Excess ABG Hemoglobin Oxyhemoglobin Sodium 135 L Potassium Chloride Carbon Dioxide 17 L BUN 81 H Creatinine 3.2 H Glucose 109 H POC Glucose Lactic Acid Calcium 7.4 L Ionized Calcium Phosphorus 4.60 H D Magnesium Direct Bilirubin AST ALT Alkaline Phosphatase Lactate Dehydrogenase Troponin T C-Reactive Protein Total Protein Albumin Prealbumin Triglycerides Cholesterol LDL Cholesterol Direct HDL Cholesterol 25-OH Vitamin D Total PTH Intact Urine pH Urine WBC (Auto) Urine Creatinine Urine Total Protein Fluid Total Protein Vancomycin Trough Rheumatoid Factor Complement C4 Miscellaneous Test Crossmatch 10/09/16 10/09/16 10/09/16 03:45 05:14 07:20 WBC RBC Hgb Hct MCV MCH MCHC RDW Plt Count Lymph % (Auto) [place] % (Auto) Lymph # [place] # Baso # Seg Neutrophils % Seg Neuts % (Manual) Lymphocytes % (Manual) Monocytes % (Manual) Eosinophils % (Manual) Basophils % (Manual) Nucleated RBC % Seg Neutrophils # Seg Neutrophils # Man Lymphocytes # (Manual) Monocytes # (Manual) Eosinophils # (Manual) Basophils # (Manual) PT 19.0 H INR 1.51 H Fibrinogen dRVVT Confirm Interp Factor V Activity POC ABG pH POC ABG pCO2 POC ABG pO2 ABG pO2 ABG HCO3 ABG Base Excess ABG Hemoglobin Oxyhemoglobin Sodium Potassium Chloride Carbon Dioxide BUN Creatinine Glucose POC Glucose 151 H Lactic Acid Calcium Ionized Calcium Phosphorus Magnesium Direct Bilirubin AST ALT Alkaline Phosphatase Lactate Dehydrogenase Troponin T C-Reactive Protein Total Protein Albumin Prealbumin Triglycerides Cholesterol LDL Cholesterol Direct HDL Cholesterol 25-OH Vitamin D Total PTH Intact Urine pH Urine WBC (Auto) Urine Creatinine Urine Total Protein Fluid Total Protein Vancomycin Trough Rheumatoid Factor Complement C4 Miscellaneous Test Crossmatch See Detail 10/09/16 10/09/16 10/09/16 11:46 16:20 16:43 WBC RBC Hgb 7.2 L Hct 22.2 L MCV MCH MCHC RDW Plt Count Lymph % (Auto) [place] % (Auto) Lymph # [place] # Baso # Seg Neutrophils % Seg Neuts % (Manual) Lymphocytes % (Manual) Monocytes % (Manual) Eosinophils % (Manual) Basophils % (Manual) Nucleated RBC % Seg Neutrophils # Seg Neutrophils # Man Lymphocytes # (Manual) Monocytes # (Manual) Eosinophils # (Manual) Basophils # (Manual) PT INR Fibrinogen dRVVT Confirm Interp Factor V Activity POC ABG pH POC ABG pCO2 POC ABG pO2 ABG pO2 ABG HCO3 ABG Base Excess ABG Hemoglobin Oxyhemoglobin Sodium Potassium Chloride Carbon Dioxide BUN Creatinine Glucose POC Glucose 133 H 141 H Lactic Acid Calcium Ionized Calcium Phosphorus Magnesium Direct Bilirubin AST ALT Alkaline Phosphatase Lactate Dehydrogenase Troponin T C-Reactive Protein Total Protein Albumin Prealbumin Triglycerides Cholesterol LDL Cholesterol Direct HDL Cholesterol 25-OH Vitamin D Total PTH Intact Urine pH Urine WBC (Auto) Urine Creatinine Urine Total Protein Fluid Total Protein Vancomycin Trough Rheumatoid Factor Complement C4 Miscellaneous Test Crossmatch 10/10/16 10/10/16 10/10/16 05:00 05:00 11:19 WBC 18.5 H RBC 2.19 L Hgb 6.4 L Hct 19.6 L* MCV MCH MCHC RDW 19.3 H Plt Count 93 L Lymph % (Auto) [place] % (Auto) Lymph # [place] # Baso # Seg Neutrophils % Seg Neuts % (Manual) Lymphocytes % (Manual) 10.0 L Monocytes % (Manual) Eosinophils % (Manual) Basophils % (Manual) Nucleated RBC % 4.0 H Seg Neutrophils # Seg Neutrophils # Man 11.3 H Lymphocytes # (Manual) Monocytes # (Manual) Eosinophils # (Manual) Basophils # (Manual) PT INR Fibrinogen dRVVT Confirm Interp Factor V Activity POC ABG pH POC ABG pCO2 POC ABG pO2 ABG pO2 ABG HCO3 ABG Base Excess ABG Hemoglobin Oxyhemoglobin Sodium Potassium 5.7 H D Chloride Carbon Dioxide 16 L BUN 94 H Creatinine 3.1 H Glucose 131 H POC Glucose 153 H Lactic Acid Calcium 8.2 L Ionized Calcium Phosphorus 5.10 H Magnesium 2.40 H Direct Bilirubin 0.3 H AST ALT < 5 L Alkaline Phosphatase 319 H Lactate Dehydrogenase Troponin T C-Reactive Protein Total Protein 5.1 L Albumin 1.0 L Prealbumin Triglycerides Cholesterol LDL Cholesterol Direct HDL Cholesterol 25-OH Vitamin D Total PTH Intact Urine pH Urine WBC (Auto) Urine Creatinine Urine Total Protein Fluid Total Protein Vancomycin Trough Rheumatoid Factor Complement C4 Miscellaneous Test Crossmatch 10/10/16 10/10/16 10/11/16 17:50 23:30 04:15 WBC RBC Hgb Hct MCV MCH MCHC RDW Plt Count Lymph % (Auto) [place] % (Auto) Lymph # [place] # Baso # Seg Neutrophils % Seg Neuts % (Manual) Lymphocytes % (Manual) Monocytes % (Manual) Eosinophils % (Manual) Basophils % (Manual) Nucleated RBC % Seg Neutrophils # Seg Neutrophils # Man Lymphocytes # (Manual) Monocytes # (Manual) Eosinophils # (Manual) Basophils # (Manual) PT INR Fibrinogen dRVVT Confirm Interp Factor V Activity POC ABG pH POC ABG pCO2 POC ABG pO2 ABG pO2 ABG HCO3 ABG Base Excess ABG Hemoglobin Oxyhemoglobin Sodium Potassium Chloride 96.4 L Carbon Dioxide 21 L BUN 57 H Creatinine 2.1 H Glucose 151 H POC Glucose 146 H 141 H Lactic Acid Calcium 8.3 L Ionized Calcium Phosphorus Magnesium Direct Bilirubin AST ALT Alkaline Phosphatase Lactate Dehydrogenase Troponin T C-Reactive Protein Total Protein Albumin Prealbumin Triglycerides Cholesterol LDL Cholesterol Direct HDL Cholesterol 25-OH Vitamin D Total PTH Intact Urine pH Urine WBC (Auto) Urine Creatinine Urine Total Protein Fluid Total Protein Vancomycin Trough Rheumatoid Factor Complement C4 Miscellaneous Test Crossmatch 10/11/16 10/11/16 10/11/16 04:15 04:15 05:30 WBC 28.3 H RBC 3.12 L Hgb 9.3 L Hct 28.7 L D MCV MCH MCHC RDW 17.7 H Plt Count 128 L Lymph % (Auto) [place] % (Auto) Lymph # [place] # Baso # Seg Neutrophils % Seg Neuts % (Manual) Lymphocytes % (Manual) Monocytes % (Manual) Eosinophils % (Manual) Basophils % (Manual) Nucleated RBC % Seg Neutrophils # Seg Neutrophils # Man Lymphocytes # (Manual) Monocytes # (Manual) Eosinophils # (Manual) Basophils # (Manual) PT INR Fibrinogen dRVVT Confirm Interp Factor V Activity POC ABG pH POC ABG pCO2 POC ABG pO2 ABG pO2 ABG HCO3 ABG Base Excess ABG Hemoglobin Oxyhemoglobin Sodium Potassium Chloride Carbon Dioxide BUN Creatinine Glucose POC Glucose 167 H Lactic Acid Calcium Ionized Calcium Phosphorus Magnesium Direct Bilirubin AST ALT Alkaline Phosphatase Lactate Dehydrogenase Troponin T C-Reactive Protein 15.80 H Total Protein Albumin Prealbumin Triglycerides Cholesterol LDL Cholesterol Direct HDL Cholesterol 25-OH Vitamin D Total PTH Intact Urine pH Urine WBC (Auto) Urine Creatinine Urine Total Protein Fluid Total Protein Vancomycin Trough Rheumatoid Factor Complement C4 Miscellaneous Test Crossmatch 10/11/16 10/11/16 10/11/16 11:40 15:49 23:57 WBC RBC Hgb Hct MCV MCH MCHC RDW Plt Count Lymph % (Auto) [place] % (Auto) Lymph # [place] # Baso # Seg Neutrophils % Seg Neuts % (Manual) Lymphocytes % (Manual) Monocytes % (Manual) Eosinophils % (Manual) Basophils % (Manual) Nucleated RBC % Seg Neutrophils # Seg Neutrophils # Man Lymphocytes # (Manual) Monocytes # (Manual) Eosinophils # (Manual) Basophils # (Manual) PT INR Fibrinogen dRVVT Confirm Interp Factor V Activity POC ABG pH POC ABG pCO2 POC ABG pO2 ABG pO2 ABG HCO3 ABG Base Excess ABG Hemoglobin Oxyhemoglobin Sodium Potassium Chloride Carbon Dioxide BUN Creatinine Glucose POC Glucose 139 H 168 H 161 H Lactic Acid Calcium Ionized Calcium Phosphorus Magnesium Direct Bilirubin AST ALT Alkaline Phosphatase Lactate Dehydrogenase Troponin T C-Reactive Protein Total Protein Albumin Prealbumin Triglycerides Cholesterol LDL Cholesterol Direct HDL Cholesterol 25-OH Vitamin D Total PTH Intact Urine pH Urine WBC (Auto) Urine Creatinine Urine Total Protein Fluid Total Protein Vancomycin Trough Rheumatoid Factor Complement C4 Miscellaneous Test Crossmatch 10/12/16 10/12/16 10/12/16 04:40 04:40 05:44 WBC 22.5 H RBC 2.88 L Hgb 8.8 L Hct 26.8 L MCV MCH MCHC RDW 17.8 H Plt Count Lymph % (Auto) [place] % (Auto) Lymph # [place] # Baso # Seg Neutrophils % Seg Neuts % (Manual) Lymphocytes % (Manual) Monocytes % (Manual) Eosinophils % (Manual) Basophils % (Manual) Nucleated RBC % Seg Neutrophils # Seg Neutrophils # Man Lymphocytes # (Manual) Monocytes # (Manual) Eosinophils # (Manual) Basophils # (Manual) PT INR Fibrinogen dRVVT Confirm Interp Factor V Activity POC ABG pH POC ABG pCO2 POC ABG pO2 ABG pO2 ABG HCO3 ABG Base Excess ABG Hemoglobin Oxyhemoglobin Sodium 134 L Potassium Chloride 93.0 L Carbon Dioxide BUN 74 H Creatinine 2.5 H Glucose 137 H POC Glucose 158 H Lactic Acid Calcium 8.2 L Ionized Calcium Phosphorus Magnesium Direct Bilirubin AST ALT Alkaline Phosphatase Lactate Dehydrogenase Troponin T C-Reactive Protein Total Protein Albumin Prealbumin Triglycerides Cholesterol LDL Cholesterol Direct HDL Cholesterol 25-OH Vitamin D Total PTH Intact Urine pH Urine WBC (Auto) Urine Creatinine Urine Total Protein Fluid Total Protein Vancomycin Trough Rheumatoid Factor Complement C4 Miscellaneous Test Crossmatch 10/12/16 10/12/16 10/12/16 12:27 18:18 23:46 WBC RBC Hgb Hct MCV MCH MCHC RDW Plt Count Lymph % (Auto) [place] % (Auto) Lymph # [place] # Baso # Seg Neutrophils % Seg Neuts % (Manual) Lymphocytes % (Manual) Monocytes % (Manual) Eosinophils % (Manual) Basophils % (Manual) Nucleated RBC % Seg Neutrophils # Seg Neutrophils # Man Lymphocytes # (Manual) Monocytes # (Manual) Eosinophils # (Manual) Basophils # (Manual) PT INR Fibrinogen dRVVT Confirm Interp Factor V Activity POC ABG pH POC ABG pCO2 POC ABG pO2 ABG pO2 ABG HCO3 ABG Base Excess ABG Hemoglobin Oxyhemoglobin Sodium Potassium Chloride Carbon Dioxide BUN Creatinine Glucose POC Glucose 153 H 140 H 150 H Lactic Acid Calcium Ionized Calcium Phosphorus Magnesium Direct Bilirubin AST ALT Alkaline Phosphatase Lactate Dehydrogenase Troponin T C-Reactive Protein Total Protein Albumin Prealbumin Triglycerides Cholesterol LDL Cholesterol Direct HDL Cholesterol 25-OH Vitamin D Total PTH Intact Urine pH Urine WBC (Auto) Urine Creatinine Urine Total Protein Fluid Total Protein Vancomycin Trough Rheumatoid Factor Complement C4 Miscellaneous Test Crossmatch 10/13/16 10/13/16 10/13/16 06:22 09:20 12:29 WBC RBC Hgb Hct MCV MCH MCHC RDW Plt Count Lymph % (Auto) [place] % (Auto) Lymph # [place] # Baso # Seg Neutrophils % Seg Neuts % (Manual) Lymphocytes % (Manual) Monocytes % (Manual) Eosinophils % (Manual) Basophils % (Manual) Nucleated RBC % Seg Neutrophils # Seg Neutrophils # Man Lymphocytes # (Manual) Monocytes # (Manual) Eosinophils # (Manual) Basophils # (Manual) PT INR Fibrinogen dRVVT Confirm Interp Factor V Activity POC ABG pH POC ABG pCO2 POC ABG pO2 ABG pO2 ABG HCO3 ABG Base Excess ABG Hemoglobin Oxyhemoglobin Sodium Potassium Chloride Carbon Dioxide BUN Creatinine Glucose POC Glucose 165 H 193 H Lactic Acid Calcium Ionized Calcium Phosphorus Magnesium Direct Bilirubin AST ALT Alkaline Phosphatase Lactate Dehydrogenase Troponin T C-Reactive Protein Total Protein Albumin Prealbumin Triglycerides Cholesterol LDL Cholesterol Direct HDL Cholesterol 25-OH Vitamin D Total PTH Intact Urine pH Urine WBC (Auto) Urine Creatinine Urine Total Protein Fluid Total Protein Vancomycin Trough Rheumatoid Factor Complement C4 Miscellaneous Test Flexitest 1 H Crossmatch 10/13/16 10/13/16 10/13/16 18:09 Unknown Unknown WBC 23.4 H RBC 2.83 L Hgb 8.7 L Hct 26.1 L MCV MCH MCHC RDW 18.1 H Plt Count Lymph % (Auto) [place] % (Auto) Lymph # [place] # Baso # Seg Neutrophils % Seg Neuts % (Manual) Lymphocytes % (Manual) Monocytes % (Manual) Eosinophils % (Manual) Basophils % (Manual) Nucleated RBC % Seg Neutrophils # Seg Neutrophils # Man Lymphocytes # (Manual) Monocytes # (Manual) Eosinophils # (Manual) Basophils # (Manual) PT INR Fibrinogen dRVVT Confirm Interp Factor V Activity POC ABG pH POC ABG pCO2 POC ABG pO2 ABG pO2 ABG HCO3 ABG Base Excess ABG Hemoglobin Oxyhemoglobin Sodium Potassium Chloride 95.8 L Carbon Dioxide BUN 82 H Creatinine 2.6 H Glucose 152 H POC Glucose 166 H Lactic Acid Calcium Ionized Calcium Phosphorus Magnesium Direct Bilirubin AST ALT Alkaline Phosphatase Lactate Dehydrogenase Troponin T C-Reactive Protein Total Protein Albumin Prealbumin Triglycerides Cholesterol LDL Cholesterol Direct HDL Cholesterol 25-OH Vitamin D Total PTH Intact Urine pH Urine WBC (Auto) Urine Creatinine Urine Total Protein Fluid Total Protein Vancomycin Trough Rheumatoid Factor Complement C4 Miscellaneous Test Crossmatch 10/14/16 10/14/16 10/14/16 05:38 06:35 08:10 WBC 20.7 H RBC 2.81 L Hgb 8.4 L Hct 27.2 L MCV MCH MCHC RDW 19.4 H Plt Count Lymph % (Auto) [place] % (Auto) Lymph # [place] # Baso # Seg Neutrophils % Seg Neuts % (Manual) Lymphocytes % (Manual) Monocytes % (Manual) Eosinophils % (Manual) Basophils % (Manual) Nucleated RBC % Seg Neutrophils # Seg Neutrophils # Man Lymphocytes # (Manual) Monocytes # (Manual) Eosinophils # (Manual) Basophils # (Manual) PT INR Fibrinogen dRVVT Confirm Interp Factor V Activity POC ABG pH POC ABG pCO2 POC ABG pO2 ABG pO2 ABG HCO3 ABG Base Excess ABG Hemoglobin Oxyhemoglobin Sodium Potassium Chloride Carbon Dioxide BUN 58 H Creatinine 1.9 H Glucose 169 H POC Glucose 195 H Lactic Acid Calcium Ionized Calcium Phosphorus Magnesium Direct Bilirubin AST ALT Alkaline Phosphatase Lactate Dehydrogenase Troponin T C-Reactive Protein Total Protein Albumin Prealbumin Triglycerides Cholesterol LDL Cholesterol Direct HDL Cholesterol 25-OH Vitamin D Total PTH Intact Urine pH Urine WBC (Auto) Urine Creatinine Urine Total Protein Fluid Total Protein Vancomycin Trough Rheumatoid Factor Complement C4 Miscellaneous Test Crossmatch 10/14/16 10/14/16 10/14/16 11:44 17:13 23:28 WBC RBC Hgb Hct MCV MCH MCHC RDW Plt Count Lymph % (Auto) [place] % (Auto) Lymph # [place] # Baso # Seg Neutrophils % Seg Neuts % (Manual) Lymphocytes % (Manual) Monocytes % (Manual) Eosinophils % (Manual) Basophils % (Manual) Nucleated RBC % Seg Neutrophils # Seg Neutrophils # Man Lymphocytes # (Manual) Monocytes # (Manual) Eosinophils # (Manual) Basophils # (Manual) PT INR Fibrinogen dRVVT Confirm Interp Factor V Activity POC ABG pH POC ABG pCO2 POC ABG pO2 ABG pO2 ABG HCO3 ABG Base Excess ABG Hemoglobin Oxyhemoglobin Sodium Potassium Chloride Carbon Dioxide BUN Creatinine Glucose POC Glucose 174 H 121 H 151 H Lactic Acid Calcium Ionized Calcium Phosphorus Magnesium Direct Bilirubin AST ALT Alkaline Phosphatase Lactate Dehydrogenase Troponin T C-Reactive Protein Total Protein Albumin Prealbumin Triglycerides Cholesterol LDL Cholesterol Direct HDL Cholesterol 25-OH Vitamin D Total PTH Intact Urine pH Urine WBC (Auto) Urine Creatinine Urine Total Protein Fluid Total Protein Vancomycin Trough Rheumatoid Factor Complement C4 Miscellaneous Test Crossmatch 10/15/16 10/15/16 10/15/16 05:06 12:26 17:48 WBC RBC Hgb Hct MCV MCH MCHC RDW Plt Count Lymph % (Auto) [place] % (Auto) Lymph # [place] # Baso # Seg Neutrophils % Seg Neuts % (Manual) Lymphocytes % (Manual) Monocytes % (Manual) Eosinophils % (Manual) Basophils % (Manual) Nucleated RBC % Seg Neutrophils # Seg Neutrophils # Man Lymphocytes # (Manual) Monocytes # (Manual) Eosinophils # (Manual) Basophils # (Manual) PT INR Fibrinogen dRVVT Confirm Interp Factor V Activity POC ABG pH POC ABG pCO2 POC ABG pO2 ABG pO2 ABG HCO3 ABG Base Excess ABG Hemoglobin Oxyhemoglobin Sodium Potassium Chloride Carbon Dioxide BUN Creatinine Glucose POC Glucose 151 H 149 H 153 H Lactic Acid Calcium Ionized Calcium Phosphorus Magnesium Direct Bilirubin AST ALT Alkaline Phosphatase Lactate Dehydrogenase Troponin T C-Reactive Protein Total Protein Albumin Prealbumin Triglycerides Cholesterol LDL Cholesterol Direct HDL Cholesterol 25-OH Vitamin D Total PTH Intact Urine pH Urine WBC (Auto) Urine Creatinine Urine Total Protein Fluid Total Protein Vancomycin Trough Rheumatoid Factor Complement C4 Miscellaneous Test Crossmatch 10/15/16 10/15/16 10/16/16 Unknown Unknown 00:02 WBC 23.4 H RBC 2.78 L Hgb 8.5 L Hct 25.7 L MCV MCH MCHC RDW 18.7 H Plt Count Lymph % (Auto) [place] % (Auto) Lymph # [place] # Baso # Seg Neutrophils % Seg Neuts % (Manual) Lymphocytes % (Manual) Monocytes % (Manual) Eosinophils % (Manual) Basophils % (Manual) Nucleated RBC % Seg Neutrophils # Seg Neutrophils # Man Lymphocytes # (Manual) Monocytes # (Manual) Eosinophils # (Manual) Basophils # (Manual) PT INR Fibrinogen dRVVT Confirm Interp Factor V Activity POC ABG pH POC ABG pCO2 POC ABG pO2 ABG pO2 ABG HCO3 ABG Base Excess ABG Hemoglobin Oxyhemoglobin Sodium Potassium Chloride Carbon Dioxide BUN 73 H Creatinine 2.3 H Glucose 120 H POC Glucose 137 H Lactic Acid Calcium Ionized Calcium Phosphorus Magnesium Direct Bilirubin AST ALT Alkaline Phosphatase Lactate Dehydrogenase Troponin T C-Reactive Protein Total Protein Albumin Prealbumin Triglycerides Cholesterol LDL Cholesterol Direct HDL Cholesterol 25-OH Vitamin D Total PTH Intact Urine pH Urine WBC (Auto) Urine Creatinine Urine Total Protein Fluid Total Protein Vancomycin Trough Rheumatoid Factor Complement C4 Miscellaneous Test Crossmatch 10/16/16 10/16/16 10/16/16 05:44 06:25 06:25 WBC 22.5 H RBC 2.76 L Hgb 8.3 L Hct 25.2 L MCV MCH MCHC RDW 18.3 H Plt Count Lymph % (Auto) [place] % (Auto) Lymph # [place] # Baso # Seg Neutrophils % Seg Neuts % (Manual) Lymphocytes % (Manual) Monocytes % (Manual) Eosinophils % (Manual) Basophils % (Manual) Nucleated RBC % Seg Neutrophils # Seg Neutrophils # Man Lymphocytes # (Manual) Monocytes # (Manual) Eosinophils # (Manual) Basophils # (Manual) PT INR Fibrinogen dRVVT Confirm Interp Factor V Activity POC ABG pH POC ABG pCO2 POC ABG pO2 ABG pO2 ABG HCO3 ABG Base Excess ABG Hemoglobin Oxyhemoglobin Sodium Potassium Chloride Carbon Dioxide BUN 92 H Creatinine 3.0 H Glucose 138 H POC Glucose 110 H Lactic Acid Calcium Ionized Calcium Phosphorus Magnesium Direct Bilirubin AST ALT Alkaline Phosphatase Lactate Dehydrogenase Troponin T C-Reactive Protein Total Protein Albumin Prealbumin Triglycerides Cholesterol LDL Cholesterol Direct HDL Cholesterol 25-OH Vitamin D Total PTH Intact Urine pH Urine WBC (Auto) Urine Creatinine Urine Total Protein Fluid Total Protein Vancomycin Trough Rheumatoid Factor Complement C4 Miscellaneous Test Crossmatch 10/16/16 10/16/16 10/16/16 11:27 11:48 17:36 WBC RBC Hgb Hct MCV MCH MCHC RDW Plt Count Lymph % (Auto) [place] % (Auto) Lymph # [place] # Baso # Seg Neutrophils % Seg Neuts % (Manual) Lymphocytes % (Manual) Monocytes % (Manual) Eosinophils % (Manual) Basophils % (Manual) Nucleated RBC % Seg Neutrophils # Seg Neutrophils # Man Lymphocytes # (Manual) Monocytes # (Manual) Eosinophils # (Manual) Basophils # (Manual) PT INR Fibrinogen dRVVT Confirm Interp Factor V Activity POC ABG pH 7.582 H POC ABG pCO2 27.4 L POC ABG pO2 110 H ABG pO2 ABG HCO3 ABG Base Excess ABG Hemoglobin Oxyhemoglobin Sodium Potassium Chloride Carbon Dioxide BUN Creatinine Glucose POC Glucose 121 H 133 H Lactic Acid Calcium Ionized Calcium Phosphorus Magnesium Direct Bilirubin AST ALT Alkaline Phosphatase Lactate Dehydrogenase Troponin T C-Reactive Protein Total Protein Albumin Prealbumin Triglycerides Cholesterol LDL Cholesterol Direct HDL Cholesterol 25-OH Vitamin D Total PTH Intact Urine pH Urine WBC (Auto) Urine Creatinine Urine Total Protein Fluid Total Protein Vancomycin Trough Rheumatoid Factor Complement C4 Miscellaneous Test Crossmatch 10/16/16 10/17/16 10/17/16 20:48 04:24 04:24 WBC 21.4 H RBC 2.72 L Hgb 8.0 L Hct 25.2 L MCV MCH MCHC RDW 18.0 H Plt Count Lymph % (Auto) [place] % (Auto) Lymph # [place] # Baso # Seg Neutrophils % Seg Neuts % (Manual) Lymphocytes % (Manual) Monocytes % (Manual) Eosinophils % (Manual) Basophils % (Manual) Nucleated RBC % Seg Neutrophils # Seg Neutrophils # Man Lymphocytes # (Manual) Monocytes # (Manual) Eosinophils # (Manual) Basophils # (Manual) PT INR Fibrinogen dRVVT Confirm Interp Factor V Activity POC ABG pH 7.561 H POC ABG pCO2 24.4 L POC ABG pO2 77 L ABG pO2 ABG HCO3 ABG Base Excess ABG Hemoglobin Oxyhemoglobin Sodium 148 H Potassium Chloride Carbon Dioxide BUN 104 H Creatinine 3.0 H Glucose 149 H POC Glucose Lactic Acid Calcium Ionized Calcium Phosphorus Magnesium Direct Bilirubin AST ALT Alkaline Phosphatase 138 H Lactate Dehydrogenase Troponin T C-Reactive Protein Total Protein 6.2 L Albumin 1.5 L Prealbumin Triglycerides Cholesterol LDL Cholesterol Direct HDL Cholesterol 25-OH Vitamin D Total PTH Intact Urine pH Urine WBC (Auto) Urine Creatinine Urine Total Protein Fluid Total Protein Vancomycin Trough Rheumatoid Factor Complement C4 Miscellaneous Test Crossmatch 10/17/16 10/17/16 10/17/16 06:02 12:17 17:14 WBC RBC Hgb Hct MCV MCH MCHC RDW Plt Count Lymph % (Auto) [place] % (Auto) Lymph # [place] # Baso # Seg Neutrophils % Seg Neuts % (Manual) Lymphocytes % (Manual) Monocytes % (Manual) Eosinophils % (Manual) Basophils % (Manual) Nucleated RBC % Seg Neutrophils # Seg Neutrophils # Man Lymphocytes # (Manual) Monocytes # (Manual) Eosinophils # (Manual) Basophils # (Manual) PT INR Fibrinogen dRVVT Confirm Interp Factor V Activity POC ABG pH POC ABG pCO2 POC ABG pO2 ABG pO2 ABG HCO3 ABG Base Excess ABG Hemoglobin Oxyhemoglobin Sodium Potassium Chloride Carbon Dioxide BUN Creatinine Glucose POC Glucose 170 H 167 H 126 H Lactic Acid Calcium Ionized Calcium Phosphorus Magnesium Direct Bilirubin AST ALT Alkaline Phosphatase Lactate Dehydrogenase Troponin T C-Reactive Protein Total Protein Albumin Prealbumin Triglycerides Cholesterol LDL Cholesterol Direct HDL Cholesterol 25-OH Vitamin D Total PTH Intact Urine pH Urine WBC (Auto) Urine Creatinine Urine Total Protein Fluid Total Protein Vancomycin Trough Rheumatoid Factor Complement C4 Miscellaneous Test Crossmatch 10/17/16 10/18/16 10/18/16 23:17 04:00 04:00 WBC 20.7 H RBC 2.47 L Hgb 7.4 L Hct 22.9 L MCV MCH MCHC RDW 17.5 H Plt Count Lymph % (Auto) [place] % (Auto) Lymph # [place] # Baso # Seg Neutrophils % Seg Neuts % (Manual) Lymphocytes % (Manual) Monocytes % (Manual) Eosinophils % (Manual) Basophils % (Manual) Nucleated RBC % Seg Neutrophils # Seg Neutrophils # Man Lymphocytes # (Manual) Monocytes # (Manual) Eosinophils # (Manual) Basophils # (Manual) PT INR Fibrinogen dRVVT Confirm Interp Factor V Activity POC ABG pH POC ABG pCO2 POC ABG pO2 ABG pO2 ABG HCO3 ABG Base Excess ABG Hemoglobin Oxyhemoglobin Sodium 149 H Potassium Chloride 107.9 H Carbon Dioxide 20 L BUN 117 H Creatinine 3.2 H Glucose 119 H POC Glucose 121 H Lactic Acid Calcium Ionized Calcium Phosphorus Magnesium Direct Bilirubin AST ALT Alkaline Phosphatase Lactate Dehydrogenase Troponin T C-Reactive Protein Total Protein Albumin Prealbumin Triglycerides Cholesterol LDL Cholesterol Direct HDL Cholesterol 25-OH Vitamin D Total PTH Intact Urine pH Urine WBC (Auto) Urine Creatinine Urine Total Protein Fluid Total Protein Vancomycin Trough Rheumatoid Factor Complement C4 Miscellaneous Test Crossmatch 10/18/16 10/18/16 10/18/16 05:23 10:46 17:30 WBC RBC Hgb Hct MCV MCH MCHC RDW Plt Count Lymph % (Auto) [place] % (Auto) Lymph # [place] # Baso # Seg Neutrophils % Seg Neuts % (Manual) Lymphocytes % (Manual) Monocytes % (Manual) Eosinophils % (Manual) Basophils % (Manual) Nucleated RBC % Seg Neutrophils # Seg Neutrophils # Man Lymphocytes # (Manual) Monocytes # (Manual) Eosinophils # (Manual) Basophils # (Manual) PT INR Fibrinogen dRVVT Confirm Interp Factor V Activity POC ABG pH POC ABG pCO2 POC ABG pO2 ABG pO2 ABG HCO3 ABG Base Excess ABG Hemoglobin Oxyhemoglobin Sodium Potassium Chloride Carbon Dioxide BUN Creatinine Glucose POC Glucose 119 H 155 H 124 H Lactic Acid Calcium Ionized Calcium Phosphorus Magnesium Direct Bilirubin AST ALT Alkaline Phosphatase Lactate Dehydrogenase Troponin T C-Reactive Protein Total Protein Albumin Prealbumin Triglycerides Cholesterol LDL Cholesterol Direct HDL Cholesterol 25-OH Vitamin D Total PTH Intact Urine pH Urine WBC (Auto) Urine Creatinine Urine Total Protein Fluid Total Protein Vancomycin Trough Rheumatoid Factor Complement C4 Miscellaneous Test Crossmatch 10/19/16 10/19/16 10/19/16 04:00 04:00 05:25 WBC 17.4 H RBC 2.54 L Hgb 7.7 L Hct 23.6 L MCV MCH MCHC RDW 17.3 H Plt Count Lymph % (Auto) [place] % (Auto) Lymph # [place] # Baso # Seg Neutrophils % Seg Neuts % (Manual) Lymphocytes % (Manual) Monocytes % (Manual) Eosinophils % (Manual) Basophils % (Manual) Nucleated RBC % Seg Neutrophils # Seg Neutrophils # Man Lymphocytes # (Manual) Monocytes # (Manual) Eosinophils # (Manual) Basophils # (Manual) PT INR Fibrinogen dRVVT Confirm Interp Factor V Activity POC ABG pH POC ABG pCO2 POC ABG pO2 ABG pO2 ABG HCO3 ABG Base Excess ABG Hemoglobin Oxyhemoglobin Sodium Potassium Chloride Carbon Dioxide BUN 72 H Creatinine 2.1 H Glucose 116 H POC Glucose 119 H Lactic Acid Calcium Ionized Calcium Phosphorus Magnesium Direct Bilirubin AST ALT Alkaline Phosphatase Lactate Dehydrogenase Troponin T C-Reactive Protein Total Protein Albumin Prealbumin Triglycerides Cholesterol LDL Cholesterol Direct HDL Cholesterol 25-OH Vitamin D Total PTH Intact Urine pH Urine WBC (Auto) Urine Creatinine Urine Total Protein Fluid Total Protein Vancomycin Trough Rheumatoid Factor Complement C4 Miscellaneous Test Crossmatch 10/19/16 10/19/16 10/20/16 11:46 23:59 06:00 WBC RBC Hgb Hct MCV MCH MCHC RDW Plt Count Lymph % (Auto) [place] % (Auto) Lymph # [place] # Baso # Seg Neutrophils % Seg Neuts % (Manual) Lymphocytes % (Manual) Monocytes % (Manual) Eosinophils % (Manual) Basophils % (Manual) Nucleated RBC % Seg Neutrophils # Seg Neutrophils # Man Lymphocytes # (Manual) Monocytes # (Manual) Eosinophils # (Manual) Basophils # (Manual) PT INR Fibrinogen dRVVT Confirm Interp Factor V Activity POC ABG pH POC ABG pCO2 POC ABG pO2 ABG pO2 ABG HCO3 ABG Base Excess ABG Hemoglobin Oxyhemoglobin Sodium Potassium Chloride Carbon Dioxide 17 L BUN 94 H Creatinine 2.7 H Glucose POC Glucose 116 H 117 H Lactic Acid Calcium Ionized Calcium Phosphorus Magnesium Direct Bilirubin AST ALT Alkaline Phosphatase Lactate Dehydrogenase Troponin T C-Reactive Protein Total Protein Albumin Prealbumin Triglycerides Cholesterol LDL Cholesterol Direct HDL Cholesterol 25-OH Vitamin D Total PTH Intact Urine pH Urine WBC (Auto) Urine Creatinine Urine Total Protein Fluid Total Protein Vancomycin Trough Rheumatoid Factor Complement C4 Miscellaneous Test Crossmatch 10/20/16 10/20/16 10/20/16 06:00 11:49 16:00 WBC 19.7 H RBC 2.51 L Hgb 7.7 L Hct 23.5 L MCV MCH MCHC RDW 17.5 H Plt Count Lymph % (Auto) [place] % (Auto) Lymph # [place] # Baso # Seg Neutrophils % Seg Neuts % (Manual) Lymphocytes % (Manual) Monocytes % (Manual) Eosinophils % (Manual) Basophils % (Manual) Nucleated RBC % Seg Neutrophils # Seg Neutrophils # Man Lymphocytes # (Manual) Monocytes # (Manual) Eosinophils # (Manual) Basophils # (Manual) PT INR Fibrinogen dRVVT Confirm Interp Factor V Activity POC ABG pH POC ABG pCO2 POC ABG pO2 ABG pO2 ABG HCO3 ABG Base Excess ABG Hemoglobin Oxyhemoglobin Sodium Potassium Chloride Carbon Dioxide BUN Creatinine Glucose POC Glucose 117 H Lactic Acid Calcium Ionized Calcium Phosphorus Magnesium Direct Bilirubin AST ALT Alkaline Phosphatase Lactate Dehydrogenase Troponin T C-Reactive Protein Total Protein Albumin Prealbumin Triglycerides Cholesterol LDL Cholesterol Direct HDL Cholesterol 25-OH Vitamin D Total PTH Intact Urine pH Urine WBC (Auto) Urine Creatinine Urine Total Protein Fluid Total Protein Vancomycin Trough Rheumatoid Factor Complement C4 Miscellaneous Test Flexitest 1 H Crossmatch 10/20/16 10/20/16 10/21/16 18:36 23:39 04:00 WBC RBC Hgb Hct MCV MCH MCHC RDW Plt Count Lymph % (Auto) [place] % (Auto) Lymph # [place] # Baso # Seg Neutrophils % Seg Neuts % (Manual) Lymphocytes % (Manual) Monocytes % (Manual) Eosinophils % (Manual) Basophils % (Manual) Nucleated RBC % Seg Neutrophils # Seg Neutrophils # Man Lymphocytes # (Manual) Monocytes # (Manual) Eosinophils # (Manual) Basophils # (Manual) PT INR Fibrinogen dRVVT Confirm Interp Factor V Activity POC ABG pH POC ABG pCO2 POC ABG pO2 ABG pO2 ABG HCO3 ABG Base Excess ABG Hemoglobin Oxyhemoglobin Sodium Potassium 5.4 H D Chloride Carbon Dioxide 15 L BUN 110 H Creatinine 3.0 H Glucose POC Glucose 127 H 114 H Lactic Acid Calcium Ionized Calcium Phosphorus Magnesium Direct Bilirubin AST ALT Alkaline Phosphatase Lactate Dehydrogenase Troponin T C-Reactive Protein Total Protein Albumin Prealbumin Triglycerides Cholesterol LDL Cholesterol Direct HDL Cholesterol 25-OH Vitamin D Total PTH Intact Urine pH Urine WBC (Auto) Urine Creatinine Urine Total Protein Fluid Total Protein Vancomycin Trough Rheumatoid Factor Complement C4 Miscellaneous Test Crossmatch 10/21/16 10/21/16 10/22/16 05:54 23:46 05:18 WBC RBC Hgb Hct MCV MCH MCHC RDW Plt Count Lymph % (Auto) [place] % (Auto) Lymph # [place] # Baso # Seg Neutrophils % Seg Neuts % (Manual) Lymphocytes % (Manual) Monocytes % (Manual) Eosinophils % (Manual) Basophils % (Manual) Nucleated RBC % Seg Neutrophils # Seg Neutrophils # Man Lymphocytes # (Manual) Monocytes # (Manual) Eosinophils # (Manual) Basophils # (Manual) PT INR Fibrinogen dRVVT Confirm Interp Factor V Activity POC ABG pH POC ABG pCO2 POC ABG pO2 ABG pO2 ABG HCO3 ABG Base Excess ABG Hemoglobin Oxyhemoglobin Sodium Potassium Chloride Carbon Dioxide BUN Creatinine Glucose POC Glucose 119 H 108 H 109 H Lactic Acid Calcium Ionized Calcium Phosphorus Magnesium Direct Bilirubin AST ALT Alkaline Phosphatase Lactate Dehydrogenase Troponin T C-Reactive Protein Total Protein Albumin Prealbumin Triglycerides Cholesterol LDL Cholesterol Direct HDL Cholesterol 25-OH Vitamin D Total PTH Intact Urine pH Urine WBC (Auto) Urine Creatinine Urine Total Protein Fluid Total Protein Vancomycin Trough Rheumatoid Factor Complement C4 Miscellaneous Test Crossmatch 10/22/16 10/22/16 10/22/16 06:40 06:40 06:40 WBC 14.0 H RBC 2.03 L Hgb 7.0 L Hct 20.5 L MCV 98 H MCH 34 H MCHC 35 H RDW 17.8 H Plt Count Lymph % (Auto) [place] % (Auto) 9.9 H Lymph # [place] # 1.4 H Baso # 0.2 H Seg Neutrophils % 72.0 H Seg Neuts % (Manual) Lymphocytes % (Manual) Monocytes % (Manual) Eosinophils % (Manual) Basophils % (Manual) Nucleated RBC % Seg Neutrophils # 10.0 H Seg Neutrophils # Man Lymphocytes # (Manual) Monocytes # (Manual) Eosinophils # (Manual) Basophils # (Manual) PT INR Fibrinogen dRVVT Confirm Interp Factor V Activity POC ABG pH POC ABG pCO2 POC ABG pO2 ABG pO2 ABG HCO3 ABG Base Excess ABG Hemoglobin Oxyhemoglobin Sodium 130 L D Potassium Chloride 92.4 L Carbon Dioxide 20 L BUN 50 H Creatinine 1.6 H Glucose 589 H* POC Glucose Lactic Acid Calcium 7.8 L D Ionized Calcium Phosphorus Magnesium 1.60 L Direct Bilirubin AST ALT Alkaline Phosphatase Lactate Dehydrogenase Troponin T C-Reactive Protein Total Protein Albumin Prealbumin Triglycerides Cholesterol LDL Cholesterol Direct HDL Cholesterol 25-OH Vitamin D Total PTH Intact Urine pH Urine WBC (Auto) Urine Creatinine Urine Total Protein Fluid Total Protein Vancomycin Trough Rheumatoid Factor Complement C4 Miscellaneous Test Crossmatch 10/22/16 10/22/16 10/22/16 11:39 16:44 23:36 WBC RBC Hgb Hct MCV MCH MCHC RDW Plt Count Lymph % (Auto) [place] % (Auto) Lymph # [place] # Baso # Seg Neutrophils % Seg Neuts % (Manual) Lymphocytes % (Manual) Monocytes % (Manual) Eosinophils % (Manual) Basophils % (Manual) Nucleated RBC % Seg Neutrophils # Seg Neutrophils # Man Lymphocytes # (Manual) Monocytes # (Manual) Eosinophils # (Manual) Basophils # (Manual) PT INR Fibrinogen dRVVT Confirm Interp Factor V Activity POC ABG pH POC ABG pCO2 POC ABG pO2 ABG pO2 ABG HCO3 ABG Base Excess ABG Hemoglobin Oxyhemoglobin Sodium Potassium Chloride Carbon Dioxide BUN Creatinine Glucose POC Glucose 142 H 163 H 123 H Lactic Acid Calcium Ionized Calcium Phosphorus Magnesium Direct Bilirubin AST ALT Alkaline Phosphatase Lactate Dehydrogenase Troponin T C-Reactive Protein Total Protein Albumin Prealbumin Triglycerides Cholesterol LDL Cholesterol Direct HDL Cholesterol 25-OH Vitamin D Total PTH Intact Urine pH Urine WBC (Auto) Urine Creatinine Urine Total Protein Fluid Total Protein Vancomycin Trough Rheumatoid Factor Complement C4 Miscellaneous Test Crossmatch 10/23/16 10/23/16 10/23/16 04:58 06:00 12:12 WBC RBC Hgb Hct MCV MCH MCHC RDW Plt Count Lymph % (Auto) [place] % (Auto) Lymph # [place] # Baso # Seg Neutrophils % Seg Neuts % (Manual) Lymphocytes % (Manual) Monocytes % (Manual) Eosinophils % (Manual) Basophils % (Manual) Nucleated RBC % Seg Neutrophils # Seg Neutrophils # Man Lymphocytes # (Manual) Monocytes # (Manual) Eosinophils # (Manual) Basophils # (Manual) PT INR Fibrinogen dRVVT Confirm Interp Factor V Activity POC ABG pH POC ABG pCO2 POC ABG pO2 ABG pO2 ABG HCO3 ABG Base Excess ABG Hemoglobin Oxyhemoglobin Sodium 133 L Potassium 3.5 L Chloride 96.1 L Carbon Dioxide 18 L BUN 76 H Creatinine 2.1 H Glucose POC Glucose 133 H 138 H Lactic Acid Calcium 8.3 L Ionized Calcium Phosphorus Magnesium Direct Bilirubin AST ALT Alkaline Phosphatase Lactate Dehydrogenase Troponin T C-Reactive Protein Total Protein Albumin Prealbumin Triglycerides Cholesterol LDL Cholesterol Direct HDL Cholesterol 25-OH Vitamin D Total PTH Intact Urine pH Urine WBC (Auto) Urine Creatinine Urine Total Protein Fluid Total Protein Vancomycin Trough Rheumatoid Factor Complement C4 Miscellaneous Test Crossmatch 10/23/16 10/23/16 10/24/16 16:53 23:37 04:00 WBC RBC Hgb Hct MCV MCH MCHC RDW Plt Count Lymph % (Auto) [place] % (Auto) Lymph # [place] # Baso # Seg Neutrophils % Seg Neuts % (Manual) Lymphocytes % (Manual) Monocytes % (Manual) Eosinophils % (Manual) Basophils % (Manual) Nucleated RBC % Seg Neutrophils # Seg Neutrophils # Man Lymphocytes # (Manual) Monocytes # (Manual) Eosinophils # (Manual) Basophils # (Manual) PT INR Fibrinogen dRVVT Confirm Interp Factor V Activity POC ABG pH POC ABG pCO2 POC ABG pO2 ABG pO2 ABG HCO3 ABG Base Excess ABG Hemoglobin Oxyhemoglobin Sodium 131 L Potassium Chloride 94.5 L Carbon Dioxide 19 L BUN 97 H Creatinine 2.6 H Glucose 110 H POC Glucose 125 H 123 H Lactic Acid Calcium 8.3 L Ionized Calcium Phosphorus Magnesium Direct Bilirubin AST ALT Alkaline Phosphatase Lactate Dehydrogenase Troponin T C-Reactive Protein Total Protein Albumin Prealbumin Triglycerides Cholesterol LDL Cholesterol Direct HDL Cholesterol 25-OH Vitamin D Total PTH Intact Urine pH Urine WBC (Auto) Urine Creatinine Urine Total Protein Fluid Total Protein Vancomycin Trough Rheumatoid Factor Complement C4 Miscellaneous Test Crossmatch 10/24/16 10/24/16 10/24/16 07:49 11:39 17:52 WBC RBC Hgb 6.0 L Hct 19.7 L* MCV MCH MCHC RDW Plt Count Lymph % (Auto) [place] % (Auto) Lymph # [place] # Baso # Seg Neutrophils % Seg Neuts % (Manual) Lymphocytes % (Manual) Monocytes % (Manual) Eosinophils % (Manual) Basophils % (Manual) Nucleated RBC % Seg Neutrophils # Seg Neutrophils # Man Lymphocytes # (Manual) Monocytes # (Manual) Eosinophils # (Manual) Basophils # (Manual) PT INR Fibrinogen dRVVT Confirm Interp Factor V Activity POC ABG pH POC ABG pCO2 POC ABG pO2 ABG pO2 ABG HCO3 ABG Base Excess ABG Hemoglobin Oxyhemoglobin Sodium Potassium Chloride Carbon Dioxide BUN Creatinine Glucose POC Glucose 106 H 158 H Lactic Acid Calcium Ionized Calcium Phosphorus Magnesium Direct Bilirubin AST ALT Alkaline Phosphatase Lactate Dehydrogenase Troponin T C-Reactive Protein Total Protein Albumin Prealbumin Triglycerides Cholesterol LDL Cholesterol Direct HDL Cholesterol 25-OH Vitamin D Total PTH Intact Urine pH Urine WBC (Auto) Urine Creatinine Urine Total Protein Fluid Total Protein Vancomycin Trough Rheumatoid Factor Complement C4 Miscellaneous Test Crossmatch 10/24/16 10/24/16 10/24/16 20:00 22:27 Unknown WBC RBC Hgb 9.4 L D Hct 27.5 L D MCV MCH MCHC RDW Plt Count Lymph % (Auto) [place] % (Auto) Lymph # [place] # Baso # Seg Neutrophils % Seg Neuts % (Manual) Lymphocytes % (Manual) Monocytes % (Manual) Eosinophils % (Manual) Basophils % (Manual) Nucleated RBC % Seg Neutrophils # Seg Neutrophils # Man Lymphocytes # (Manual) Monocytes # (Manual) Eosinophils # (Manual) Basophils # (Manual) PT INR Fibrinogen dRVVT Confirm Interp Factor V Activity POC ABG pH POC ABG pCO2 POC ABG pO2 ABG pO2 ABG HCO3 ABG Base Excess ABG Hemoglobin Oxyhemoglobin Sodium Potassium Chloride Carbon Dioxide BUN Creatinine Glucose POC Glucose 125 H Lactic Acid Calcium Ionized Calcium Phosphorus Magnesium Direct Bilirubin AST ALT Alkaline Phosphatase Lactate Dehydrogenase Troponin T C-Reactive Protein Total Protein Albumin Prealbumin Triglycerides Cholesterol LDL Cholesterol Direct HDL Cholesterol 25-OH Vitamin D Total PTH Intact Urine pH Urine WBC (Auto) Urine Creatinine Urine Total Protein Fluid Total Protein Vancomycin Trough Rheumatoid Factor Complement C4 Miscellaneous Test Crossmatch See Detail 10/25/16 10/25/16 10/25/16 04:00 04:00 04:00 WBC 14.2 H RBC 2.98 L Hgb 9.0 L Hct 26.2 L MCV MCH MCHC RDW 16.6 H Plt Count Lymph % (Auto) [place] % (Auto) 10.7 H Lymph # [place] # 1.5 H Baso # Seg Neutrophils % 73.6 H Seg Neuts % (Manual) Lymphocytes % (Manual) Monocytes % (Manual) Eosinophils % (Manual) Basophils % (Manual) Nucleated RBC % Seg Neutrophils # 10.5 H Seg Neutrophils # Man Lymphocytes # (Manual) Monocytes # (Manual) Eosinophils # (Manual) Basophils # (Manual) PT INR Fibrinogen dRVVT Confirm Interp Factor V Activity POC ABG pH POC ABG pCO2 POC ABG pO2 ABG pO2 ABG HCO3 ABG Base Excess ABG Hemoglobin Oxyhemoglobin Sodium 132 L Potassium Chloride 94.7 L Carbon Dioxide BUN 51 H Creatinine 1.6 H Glucose 130 H POC Glucose Lactic Acid Calcium 8.3 L Ionized Calcium Phosphorus 1.60 L D Magnesium Direct Bilirubin AST ALT Alkaline Phosphatase Lactate Dehydrogenase Troponin T C-Reactive Protein Total Protein Albumin Prealbumin Triglycerides Cholesterol LDL Cholesterol Direct HDL Cholesterol 25-OH Vitamin D Total PTH Intact Urine pH Urine WBC (Auto) Urine Creatinine Urine Total Protein Fluid Total Protein Vancomycin Trough Rheumatoid Factor Complement C4 Miscellaneous Test Crossmatch 10/25/16 10/25/16 10/25/16 04:32 11:48 17:22 WBC RBC Hgb Hct MCV MCH MCHC RDW Plt Count Lymph % (Auto) [place] % (Auto) Lymph # [place] # Baso # Seg Neutrophils % Seg Neuts % (Manual) Lymphocytes % (Manual) Monocytes % (Manual) Eosinophils % (Manual) Basophils % (Manual) Nucleated RBC % Seg Neutrophils # Seg Neutrophils # Man Lymphocytes # (Manual) Monocytes # (Manual) Eosinophils # (Manual) Basophils # (Manual) PT INR Fibrinogen dRVVT Confirm Interp Factor V Activity POC ABG pH POC ABG pCO2 POC ABG pO2 ABG pO2 ABG HCO3 ABG Base Excess ABG Hemoglobin Oxyhemoglobin Sodium Potassium Chloride Carbon Dioxide BUN Creatinine Glucose POC Glucose 124 H 171 H 120 H Lactic Acid Calcium Ionized Calcium Phosphorus Magnesium Direct Bilirubin AST ALT Alkaline Phosphatase Lactate Dehydrogenase Troponin T C-Reactive Protein Total Protein Albumin Prealbumin Triglycerides Cholesterol LDL Cholesterol Direct HDL Cholesterol 25-OH Vitamin D Total PTH Intact Urine pH Urine WBC (Auto) Urine Creatinine Urine Total Protein Fluid Total Protein Vancomycin Trough Rheumatoid Factor Complement C4 Miscellaneous Test Crossmatch 10/26/16 10/26/16 10/26/16 04:54 07:06 07:06 WBC 16.9 H RBC 3.06 L Hgb 9.1 L Hct 26.9 L MCV MCH MCHC RDW 16.9 H Plt Count Lymph % (Auto) [place] % (Auto) Lymph # [place] # Baso # Seg Neutrophils % Seg Neuts % (Manual) 71.0 H Lymphocytes % (Manual) 5.0 L Monocytes % (Manual) 12.0 H Eosinophils % (Manual) Basophils % (Manual) Nucleated RBC % Seg Neutrophils # Seg Neutrophils # Man 12.0 H Lymphocytes # (Manual) 0.8 L Monocytes # (Manual) 2.0 H Eosinophils # (Manual) Basophils # (Manual) PT INR Fibrinogen dRVVT Confirm Interp Factor V Activity POC ABG pH POC ABG pCO2 POC ABG pO2 ABG pO2 ABG HCO3 ABG Base Excess ABG Hemoglobin Oxyhemoglobin Sodium 135 L Potassium Chloride 97.1 L Carbon Dioxide BUN 73 H Creatinine 2.2 H Glucose 117 H POC Glucose 123 H Lactic Acid Calcium Ionized Calcium Phosphorus 1.70 L Magnesium Direct Bilirubin AST ALT Alkaline Phosphatase Lactate Dehydrogenase Troponin T C-Reactive Protein Total Protein Albumin Prealbumin Triglycerides Cholesterol LDL Cholesterol Direct HDL Cholesterol 25-OH Vitamin D Total PTH Intact Urine pH Urine WBC (Auto) Urine Creatinine Urine Total Protein Fluid Total Protein Vancomycin Trough Rheumatoid Factor Complement C4 Miscellaneous Test Crossmatch 10/26/16 10/26/16 10/26/16 12:12 17:29 23:42 WBC RBC Hgb Hct MCV MCH MCHC RDW Plt Count Lymph % (Auto) [place] % (Auto) Lymph # [place] # Baso # Seg Neutrophils % Seg Neuts % (Manual) Lymphocytes % (Manual) Monocytes % (Manual) Eosinophils % (Manual) Basophils % (Manual) Nucleated RBC % Seg Neutrophils # Seg Neutrophils # Man Lymphocytes # (Manual) Monocytes # (Manual) Eosinophils # (Manual) Basophils # (Manual) PT INR Fibrinogen dRVVT Confirm Interp Factor V Activity POC ABG pH POC ABG pCO2 POC ABG pO2 ABG pO2 ABG HCO3 ABG Base Excess ABG Hemoglobin Oxyhemoglobin Sodium Potassium Chloride Carbon Dioxide BUN Creatinine Glucose POC Glucose 126 H 161 H 118 H Lactic Acid Calcium Ionized Calcium Phosphorus Magnesium Direct Bilirubin AST ALT Alkaline Phosphatase Lactate Dehydrogenase Troponin T C-Reactive Protein Total Protein Albumin Prealbumin Triglycerides Cholesterol LDL Cholesterol Direct HDL Cholesterol 25-OH Vitamin D Total PTH Intact Urine pH Urine WBC (Auto) Urine Creatinine Urine Total Protein Fluid Total Protein Vancomycin Trough Rheumatoid Factor Complement C4 Miscellaneous Test Crossmatch 10/27/16 10/27/16 10/27/16 05:03 06:30 06:30 WBC 13.9 H RBC 3.09 L Hgb 9.2 L Hct 27.5 L MCV MCH MCHC RDW 17.0 H Plt Count Lymph % (Auto) [place] % (Auto) Lymph # [place] # Baso # Seg Neutrophils % Seg Neuts % (Manual) 78.0 H Lymphocytes % (Manual) Monocytes % (Manual) Eosinophils % (Manual) Basophils % (Manual) Nucleated RBC % 2.0 H Seg Neutrophils # Seg Neutrophils # Man 10.8 H Lymphocytes # (Manual) Monocytes # (Manual) 1.0 H Eosinophils # (Manual) Basophils # (Manual) PT INR Fibrinogen dRVVT Confirm Interp Factor V Activity POC ABG pH POC ABG pCO2 POC ABG pO2 ABG pO2 ABG HCO3 ABG Base Excess ABG Hemoglobin Oxyhemoglobin Sodium Potassium Chloride Carbon Dioxide BUN 40 H Creatinine 1.5 H Glucose 135 H POC Glucose 107 H Lactic Acid Calcium 8.3 L Ionized Calcium Phosphorus 1.30 L D Magnesium Direct Bilirubin AST ALT Alkaline Phosphatase Lactate Dehydrogenase Troponin T C-Reactive Protein Total Protein Albumin Prealbumin Triglycerides Cholesterol LDL Cholesterol Direct HDL Cholesterol 25-OH Vitamin D Total PTH Intact Urine pH Urine WBC (Auto) Urine Creatinine Urine Total Protein Fluid Total Protein Vancomycin Trough Rheumatoid Factor Complement C4 Miscellaneous Test Crossmatch 10/27/16 10/27/16 10/27/16 13:27 18:07 23:40 WBC RBC Hgb Hct MCV MCH MCHC RDW Plt Count Lymph % (Auto) [place] % (Auto) Lymph # [place] # Baso # Seg Neutrophils % Seg Neuts % (Manual) Lymphocytes % (Manual) Monocytes % (Manual) Eosinophils % (Manual) Basophils % (Manual) Nucleated RBC % Seg Neutrophils # Seg Neutrophils # Man Lymphocytes # (Manual) Monocytes # (Manual) Eosinophils # (Manual) Basophils # (Manual) PT INR Fibrinogen dRVVT Confirm Interp Factor V Activity POC ABG pH POC ABG pCO2 POC ABG pO2 ABG pO2 ABG HCO3 ABG Base Excess ABG Hemoglobin Oxyhemoglobin Sodium Potassium Chloride Carbon Dioxide BUN Creatinine Glucose POC Glucose 117 H 121 H 118 H Lactic Acid Calcium Ionized Calcium Phosphorus Magnesium Direct Bilirubin AST ALT Alkaline Phosphatase Lactate Dehydrogenase Troponin T C-Reactive Protein Total Protein Albumin Prealbumin Triglycerides Cholesterol LDL Cholesterol Direct HDL Cholesterol 25-OH Vitamin D Total PTH Intact Urine pH Urine WBC (Auto) Urine Creatinine Urine Total Protein Fluid Total Protein Vancomycin Trough Rheumatoid Factor Complement C4 Miscellaneous Test Crossmatch 10/28/16 10/28/16 10/28/16 05:48 06:45 06:45 WBC 14.7 H RBC 3.05 L Hgb 9.0 L Hct 26.9 L MCV MCH MCHC RDW 16.8 H Plt Count Lymph % (Auto) 8.2 L [place] % (Auto) 8.4 H Lymph # [place] # 1.2 H Baso # Seg Neutrophils % 81.9 H Seg Neuts % (Manual) Lymphocytes % (Manual) Monocytes % (Manual) Eosinophils % (Manual) Basophils % (Manual) Nucleated RBC % Seg Neutrophils # 12.1 H Seg Neutrophils # Man Lymphocytes # (Manual) Monocytes # (Manual) Eosinophils # (Manual) Basophils # (Manual) PT INR Fibrinogen dRVVT Confirm Interp Factor V Activity POC ABG pH POC ABG pCO2 POC ABG pO2 ABG pO2 ABG HCO3 ABG Base Excess ABG Hemoglobin Oxyhemoglobin Sodium Potassium Chloride Carbon Dioxide BUN 60 H Creatinine 1.9 H Glucose 120 H POC Glucose 114 H Lactic Acid Calcium Ionized Calcium Phosphorus Magnesium Direct Bilirubin AST ALT Alkaline Phosphatase Lactate Dehydrogenase Troponin T C-Reactive Protein Total Protein Albumin Prealbumin Triglycerides Cholesterol LDL Cholesterol Direct HDL Cholesterol 25-OH Vitamin D Total PTH Intact Urine pH Urine WBC (Auto) Urine Creatinine Urine Total Protein Fluid Total Protein Vancomycin Trough Rheumatoid Factor Complement C4 Miscellaneous Test Crossmatch 10/28/16 10/28/16 10/29/16 17:08 23:50 05:10 WBC RBC Hgb Hct MCV MCH MCHC RDW Plt Count Lymph % (Auto) [place] % (Auto) Lymph # [place] # Baso # Seg Neutrophils % Seg Neuts % (Manual) Lymphocytes % (Manual) Monocytes % (Manual) Eosinophils % (Manual) Basophils % (Manual) Nucleated RBC % Seg Neutrophils # Seg Neutrophils # Man Lymphocytes # (Manual) Monocytes # (Manual) Eosinophils # (Manual) Basophils # (Manual) PT INR Fibrinogen dRVVT Confirm Interp Factor V Activity POC ABG pH POC ABG pCO2 POC ABG pO2 ABG pO2 ABG HCO3 ABG Base Excess ABG Hemoglobin Oxyhemoglobin Sodium Potassium Chloride Carbon Dioxide BUN Creatinine Glucose POC Glucose 109 H 110 H 124 H Lactic Acid Calcium Ionized Calcium Phosphorus Magnesium Direct Bilirubin AST ALT Alkaline Phosphatase Lactate Dehydrogenase Troponin T C-Reactive Protein Total Protein Albumin Prealbumin Triglycerides Cholesterol LDL Cholesterol Direct HDL Cholesterol 25-OH Vitamin D Total PTH Intact Urine pH Urine WBC (Auto) Urine Creatinine Urine Total Protein Fluid Total Protein Vancomycin Trough Rheumatoid Factor Complement C4 Miscellaneous Test Crossmatch 10/29/16 10/29/16 10/29/16 07:45 07:45 12:19 WBC 14.7 H RBC 3.15 L Hgb 9.3 L Hct 28.9 L MCV MCH MCHC RDW 17.0 H Plt Count Lymph % (Auto) 11.9 L [place] % (Auto) 8.6 H Lymph # [place] # 1.3 H Baso # Seg Neutrophils % 78.1 H Seg Neuts % (Manual) Lymphocytes % (Manual) Monocytes % (Manual) Eosinophils % (Manual) Basophils % (Manual) Nucleated RBC % Seg Neutrophils # 11.4 H Seg Neutrophils # Man Lymphocytes # (Manual) Monocytes # (Manual) Eosinophils # (Manual) Basophils # (Manual) PT INR Fibrinogen dRVVT Confirm Interp Factor V Activity POC ABG pH POC ABG pCO2 POC ABG pO2 ABG pO2 ABG HCO3 ABG Base Excess ABG Hemoglobin Oxyhemoglobin Sodium Potassium 5.1 H Chloride Carbon Dioxide 19 L BUN 78 H Creatinine 2.2 H Glucose 116 H POC Glucose 118 H Lactic Acid Calcium Ionized Calcium Phosphorus Magnesium Direct Bilirubin AST ALT Alkaline Phosphatase Lactate Dehydrogenase Troponin T C-Reactive Protein Total Protein Albumin Prealbumin Triglycerides Cholesterol LDL Cholesterol Direct HDL Cholesterol 25-OH Vitamin D Total PTH Intact Urine pH Urine WBC (Auto) Urine Creatinine Urine Total Protein Fluid Total Protein Vancomycin Trough Rheumatoid Factor Complement C4 Miscellaneous Test Crossmatch 10/29/16 10/30/16 10/30/16 17:49 01:52 03:28 WBC RBC Hgb Hct MCV MCH MCHC RDW Plt Count Lymph % (Auto) [place] % (Auto) Lymph # [place] # Baso # Seg Neutrophils % Seg Neuts % (Manual) Lymphocytes % (Manual) Monocytes % (Manual) Eosinophils % (Manual) Basophils % (Manual) Nucleated RBC % Seg Neutrophils # Seg Neutrophils # Man Lymphocytes # (Manual) Monocytes # (Manual) Eosinophils # (Manual) Basophils # (Manual) PT INR Fibrinogen dRVVT Confirm Interp Factor V Activity POC ABG pH POC ABG pCO2 POC ABG pO2 ABG pO2 ABG HCO3 ABG Base Excess ABG Hemoglobin Oxyhemoglobin Sodium Potassium 5.4 H Chloride 97.5 L Carbon Dioxide 19 L BUN 90 H Creatinine 2.5 H Glucose POC Glucose 120 H 129 H Lactic Acid Calcium Ionized Calcium Phosphorus 5.20 H Magnesium Direct Bilirubin AST ALT Alkaline Phosphatase Lactate Dehydrogenase Troponin T C-Reactive Protein Total Protein Albumin Prealbumin Triglycerides Cholesterol LDL Cholesterol Direct HDL Cholesterol 25-OH Vitamin D Total PTH Intact Urine pH Urine WBC (Auto) Urine Creatinine Urine Total Protein Fluid Total Protein Vancomycin Trough Rheumatoid Factor Complement C4 Miscellaneous Test Crossmatch 10/30/16 10/30/16 10/30/16 03:28 08:19 08:19 WBC 11.6 H 15.9 H RBC 2.75 L 2.82 L Hgb 7.9 L 8.3 L Hct 24.2 L 25.2 L MCV MCH MCHC RDW 16.7 H 17.2 H Plt Count Lymph % (Auto) [place] % (Auto) 9.8 H Lymph # [place] # 1.1 H Baso # Seg Neutrophils % 74.2 H Seg Neuts % (Manual) Lymphocytes % (Manual) Monocytes % (Manual) Eosinophils % (Manual) Basophils % (Manual) Nucleated RBC % Seg Neutrophils # 8.6 H Seg Neutrophils # Man Lymphocytes # (Manual) Monocytes # (Manual) Eosinophils # (Manual) Basophils # (Manual) PT INR Fibrinogen dRVVT Confirm Interp Factor V Activity POC ABG pH POC ABG pCO2 POC ABG pO2 ABG pO2 ABG HCO3 ABG Base Excess ABG Hemoglobin Oxyhemoglobin Sodium Potassium 5.3 H Chloride 97.4 L Carbon Dioxide 19 L BUN 93 H Creatinine 2.6 H Glucose POC Glucose Lactic Acid Calcium Ionized Calcium Phosphorus Magnesium Direct Bilirubin AST ALT Alkaline Phosphatase Lactate Dehydrogenase Troponin T C-Reactive Protein Total Protein Albumin Prealbumin Triglycerides Cholesterol LDL Cholesterol Direct HDL Cholesterol 25-OH Vitamin D Total PTH Intact Urine pH Urine WBC (Auto) Urine Creatinine Urine Total Protein Fluid Total Protein Vancomycin Trough Rheumatoid Factor Complement C4 Miscellaneous Test Crossmatch 10/30/16 10/30/16 10/31/16 17:11 23:56 00:40 WBC RBC Hgb Hct MCV MCH MCHC RDW Plt Count Lymph % (Auto) [place] % (Auto) Lymph # [place] # Baso # Seg Neutrophils % Seg Neuts % (Manual) Lymphocytes % (Manual) Monocytes % (Manual) Eosinophils % (Manual) Basophils % (Manual) Nucleated RBC % Seg Neutrophils # Seg Neutrophils # Man Lymphocytes # (Manual) Monocytes # (Manual) Eosinophils # (Manual) Basophils # (Manual) PT INR Fibrinogen dRVVT Confirm Interp Factor V Activity POC ABG pH POC ABG pCO2 POC ABG pO2 ABG pO2 ABG HCO3 ABG Base Excess ABG Hemoglobin Oxyhemoglobin Sodium Potassium Chloride Carbon Dioxide BUN Creatinine Glucose POC Glucose 106 H 117 H 120 H Lactic Acid Calcium Ionized Calcium Phosphorus Magnesium Direct Bilirubin AST ALT Alkaline Phosphatase Lactate Dehydrogenase Troponin T C-Reactive Protein Total Protein Albumin Prealbumin Triglycerides Cholesterol LDL Cholesterol Direct HDL Cholesterol 25-OH Vitamin D Total PTH Intact Urine pH Urine WBC (Auto) Urine Creatinine Urine Total Protein Fluid Total Protein Vancomycin Trough Rheumatoid Factor Complement C4 Miscellaneous Test Crossmatch 10/31/16 10/31/16 10/31/16 05:43 07:15 07:15 WBC 12.1 H RBC 2.63 L Hgb 7.7 L Hct 23.3 L MCV MCH MCHC RDW 16.7 H Plt Count Lymph % (Auto) 11.7 L [place] % (Auto) 7.7 H Lymph # [place] # 0.9 H Baso # Seg Neutrophils % 78.0 H Seg Neuts % (Manual) Lymphocytes % (Manual) Monocytes % (Manual) Eosinophils % (Manual) Basophils % (Manual) Nucleated RBC % Seg Neutrophils # 9.4 H Seg Neutrophils # Man Lymphocytes # (Manual) Monocytes # (Manual) Eosinophils # (Manual) Basophils # (Manual) PT INR Fibrinogen dRVVT Confirm Interp Factor V Activity POC ABG pH POC ABG pCO2 POC ABG pO2 ABG pO2 ABG HCO3 ABG Base Excess ABG Hemoglobin Oxyhemoglobin Sodium Potassium Chloride 96.4 L Carbon Dioxide 21 L BUN 99 H Creatinine 2.6 H Glucose 144 H POC Glucose 125 H Lactic Acid Calcium Ionized Calcium Phosphorus 4.80 H Magnesium Direct Bilirubin AST ALT Alkaline Phosphatase Lactate Dehydrogenase Troponin T C-Reactive Protein Total Protein Albumin Prealbumin Triglycerides Cholesterol LDL Cholesterol Direct HDL Cholesterol 25-OH Vitamin D Total PTH Intact Urine pH Urine WBC (Auto) Urine Creatinine Urine Total Protein Fluid Total Protein Vancomycin Trough Rheumatoid Factor Complement C4 Miscellaneous Test Crossmatch 10/31/16 10/31/16 11/01/16 11:46 18:34 00:20 WBC RBC Hgb Hct MCV MCH MCHC RDW Plt Count Lymph % (Auto) [place] % (Auto) Lymph # [place] # Baso # Seg Neutrophils % Seg Neuts % (Manual) Lymphocytes % (Manual) Monocytes % (Manual) Eosinophils % (Manual) Basophils % (Manual) Nucleated RBC % Seg Neutrophils # Seg Neutrophils # Man Lymphocytes # (Manual) Monocytes # (Manual) Eosinophils # (Manual) Basophils # (Manual) PT INR Fibrinogen dRVVT Confirm Interp Factor V Activity POC ABG pH POC ABG pCO2 POC ABG pO2 ABG pO2 ABG HCO3 ABG Base Excess ABG Hemoglobin Oxyhemoglobin Sodium Potassium Chloride Carbon Dioxide BUN Creatinine Glucose POC Glucose 159 H 140 H 132 H Lactic Acid Calcium Ionized Calcium Phosphorus Magnesium Direct Bilirubin AST ALT Alkaline Phosphatase Lactate Dehydrogenase Troponin T C-Reactive Protein Total Protein Albumin Prealbumin Triglycerides Cholesterol LDL Cholesterol Direct HDL Cholesterol 25-OH Vitamin D Total PTH Intact Urine pH Urine WBC (Auto) Urine Creatinine Urine Total Protein Fluid Total Protein Vancomycin Trough Rheumatoid Factor Complement C4 Miscellaneous Test Crossmatch 11/01/16 11/01/16 11/01/16 04:55 04:55 06:11 WBC 11.2 H RBC 2.68 L Hgb 7.5 L Hct 23.7 L MCV MCH MCHC RDW 16.1 H Plt Count Lymph % (Auto) [place] % (Auto) 9.8 H Lymph # [place] # 1.1 H Baso # Seg Neutrophils % 70.8 H Seg Neuts % (Manual) Lymphocytes % (Manual) Monocytes % (Manual) Eosinophils % (Manual) Basophils % (Manual) Nucleated RBC % Seg Neutrophils # 7.9 H Seg Neutrophils # Man Lymphocytes # (Manual) Monocytes # (Manual) Eosinophils # (Manual) Basophils # (Manual) PT INR Fibrinogen dRVVT Confirm Interp Factor V Activity POC ABG pH POC ABG pCO2 POC ABG pO2 ABG pO2 ABG HCO3 ABG Base Excess ABG Hemoglobin Oxyhemoglobin Sodium Potassium 3.3 L D Chloride Carbon Dioxide BUN 61 H Creatinine 1.9 H Glucose 114 H POC Glucose 115 H Lactic Acid Calcium Ionized Calcium Phosphorus 1.80 L D Magnesium Direct Bilirubin AST ALT Alkaline Phosphatase Lactate Dehydrogenase Troponin T C-Reactive Protein Total Protein Albumin Prealbumin Triglycerides Cholesterol LDL Cholesterol Direct HDL Cholesterol 25-OH Vitamin D Total PTH Intact Urine pH Urine WBC (Auto) Urine Creatinine Urine Total Protein Fluid Total Protein Vancomycin Trough Rheumatoid Factor Complement C4 Miscellaneous Test Crossmatch 11/01/16 11/01/16 11/01/16 12:29 18:23 23:58 WBC RBC Hgb Hct MCV MCH MCHC RDW Plt Count Lymph % (Auto) [place] % (Auto) Lymph # [place] # Baso # Seg Neutrophils % Seg Neuts % (Manual) Lymphocytes % (Manual) Monocytes % (Manual) Eosinophils % (Manual) Basophils % (Manual) Nucleated RBC % Seg Neutrophils # Seg Neutrophils # Man Lymphocytes # (Manual) Monocytes # (Manual) Eosinophils # (Manual) Basophils # (Manual) PT INR Fibrinogen dRVVT Confirm Interp Factor V Activity POC ABG pH POC ABG pCO2 POC ABG pO2 ABG pO2 ABG HCO3 ABG Base Excess ABG Hemoglobin Oxyhemoglobin Sodium Potassium Chloride Carbon Dioxide BUN Creatinine Glucose POC Glucose 142 H 143 H 128 H Lactic Acid Calcium Ionized Calcium Phosphorus Magnesium Direct Bilirubin AST ALT Alkaline Phosphatase Lactate Dehydrogenase Troponin T C-Reactive Protein Total Protein Albumin Prealbumin Triglycerides Cholesterol LDL Cholesterol Direct HDL Cholesterol 25-OH Vitamin D Total PTH Intact Urine pH Urine WBC (Auto) Urine Creatinine Urine Total Protein Fluid Total Protein Vancomycin Trough Rheumatoid Factor Complement C4 Miscellaneous Test Crossmatch 11/02/16 11/02/16 11/02/16 04:16 05:29 11:58 WBC RBC Hgb Hct MCV MCH MCHC RDW Plt Count Lymph % (Auto) [place] % (Auto) Lymph # [place] # Baso # Seg Neutrophils % Seg Neuts % (Manual) Lymphocytes % (Manual) Monocytes % (Manual) Eosinophils % (Manual) Basophils % (Manual) Nucleated RBC % Seg Neutrophils # Seg Neutrophils # Man Lymphocytes # (Manual) Monocytes # (Manual) Eosinophils # (Manual) Basophils # (Manual) PT INR Fibrinogen dRVVT Confirm Interp Factor V Activity POC ABG pH POC ABG pCO2 POC ABG pO2 ABG pO2 ABG HCO3 ABG Base Excess ABG Hemoglobin Oxyhemoglobin Sodium Potassium 3.1 L Chloride Carbon Dioxide BUN 73 H Creatinine 2.3 H Glucose 112 H POC Glucose 135 H 149 H Lactic Acid Calcium Ionized Calcium Phosphorus Magnesium Direct Bilirubin AST ALT Alkaline Phosphatase Lactate Dehydrogenase Troponin T C-Reactive Protein Total Protein Albumin Prealbumin Triglycerides Cholesterol LDL Cholesterol Direct HDL Cholesterol 25-OH Vitamin D Total PTH Intact Urine pH Urine WBC (Auto) Urine Creatinine Urine Total Protein Fluid Total Protein Vancomycin Trough Rheumatoid Factor Complement C4 Miscellaneous Test Crossmatch 11/02/16 11/02/16 11/03/16 17:42 22:54 06:00 WBC RBC Hgb Hct MCV MCH MCHC RDW Plt Count Lymph % (Auto) [place] % (Auto) Lymph # [place] # Baso # Seg Neutrophils % Seg Neuts % (Manual) Lymphocytes % (Manual) Monocytes % (Manual) Eosinophils % (Manual) Basophils % (Manual) Nucleated RBC % Seg Neutrophils # Seg Neutrophils # Man Lymphocytes # (Manual) Monocytes # (Manual) Eosinophils # (Manual) Basophils # (Manual) PT INR Fibrinogen dRVVT Confirm Interp Factor V Activity POC ABG pH POC ABG pCO2 POC ABG pO2 ABG pO2 ABG HCO3 ABG Base Excess ABG Hemoglobin Oxyhemoglobin Sodium Potassium Chloride 96.7 L Carbon Dioxide BUN 41 H Creatinine 1.5 H Glucose 145 H POC Glucose 182 H 115 H Lactic Acid Calcium Ionized Calcium Phosphorus 1.60 L D Magnesium 1.50 L Direct Bilirubin AST ALT Alkaline Phosphatase Lactate Dehydrogenase Troponin T C-Reactive Protein Total Protein Albumin Prealbumin Triglycerides Cholesterol LDL Cholesterol Direct HDL Cholesterol 25-OH Vitamin D Total PTH Intact Urine pH Urine WBC (Auto) Urine Creatinine Urine Total Protein Fluid Total Protein Vancomycin Trough Rheumatoid Factor Complement C4 Miscellaneous Test Crossmatch 11/03/16 11/03/16 11/03/16 11:53 17:45 23:37 WBC RBC Hgb Hct MCV MCH MCHC RDW Plt Count Lymph % (Auto) [place] % (Auto) Lymph # [place] # Baso # Seg Neutrophils % Seg Neuts % (Manual) Lymphocytes % (Manual) Monocytes % (Manual) Eosinophils % (Manual) Basophils % (Manual) Nucleated RBC % Seg Neutrophils # Seg Neutrophils # Man Lymphocytes # (Manual) Monocytes # (Manual) Eosinophils # (Manual) Basophils # (Manual) PT INR Fibrinogen dRVVT Confirm Interp Factor V Activity POC ABG pH POC ABG pCO2 POC ABG pO2 ABG pO2 ABG HCO3 ABG Base Excess ABG Hemoglobin Oxyhemoglobin Sodium Potassium Chloride Carbon Dioxide BUN Creatinine Glucose POC Glucose 131 H 134 H 113 H Lactic Acid Calcium Ionized Calcium Phosphorus Magnesium Direct Bilirubin AST ALT Alkaline Phosphatase Lactate Dehydrogenase Troponin T C-Reactive Protein Total Protein Albumin Prealbumin Triglycerides Cholesterol LDL Cholesterol Direct HDL Cholesterol 25-OH Vitamin D Total PTH Intact Urine pH Urine WBC (Auto) Urine Creatinine Urine Total Protein Fluid Total Protein Vancomycin Trough Rheumatoid Factor Complement C4 Miscellaneous Test Crossmatch 11/04/16 11/04/16 11/04/16 05:41 06:00 12:10 WBC RBC Hgb Hct MCV MCH MCHC RDW Plt Count Lymph % (Auto) [place] % (Auto) Lymph # [place] # Baso # Seg Neutrophils % Seg Neuts % (Manual) Lymphocytes % (Manual) Monocytes % (Manual) Eosinophils % (Manual) Basophils % (Manual) Nucleated RBC % Seg Neutrophils # Seg Neutrophils # Man Lymphocytes # (Manual) Monocytes # (Manual) Eosinophils # (Manual) Basophils # (Manual) PT INR Fibrinogen dRVVT Confirm Interp Factor V Activity POC ABG pH POC ABG pCO2 POC ABG pO2 ABG pO2 ABG HCO3 ABG Base Excess ABG Hemoglobin Oxyhemoglobin Sodium Potassium Chloride 96.7 L Carbon Dioxide BUN 52 H Creatinine 1.9 H Glucose 126 H POC Glucose 137 H 191 H Lactic Acid Calcium Ionized Calcium Phosphorus Magnesium Direct Bilirubin AST ALT Alkaline Phosphatase Lactate Dehydrogenase Troponin T C-Reactive Protein Total Protein Albumin Prealbumin Triglycerides Cholesterol LDL Cholesterol Direct HDL Cholesterol 25-OH Vitamin D Total PTH Intact Urine pH Urine WBC (Auto) Urine Creatinine Urine Total Protein Fluid Total Protein Vancomycin Trough Rheumatoid Factor Complement C4 Miscellaneous Test Crossmatch 11/04/16 11/05/16 11/05/16 22:57 03:10 05:10 WBC RBC Hgb Hct MCV MCH MCHC RDW Plt Count Lymph % (Auto) [place] % (Auto) Lymph # [place] # Baso # Seg Neutrophils % Seg Neuts % (Manual) Lymphocytes % (Manual) Monocytes % (Manual) Eosinophils % (Manual) Basophils % (Manual) Nucleated RBC % Seg Neutrophils # Seg Neutrophils # Man Lymphocytes # (Manual) Monocytes # (Manual) Eosinophils # (Manual) Basophils # (Manual) PT INR Fibrinogen dRVVT Confirm Interp Factor V Activity POC ABG pH POC ABG pCO2 POC ABG pO2 ABG pO2 ABG HCO3 ABG Base Excess ABG Hemoglobin Oxyhemoglobin Sodium 136 L Potassium Chloride 97.2 L Carbon Dioxide BUN 32 H Creatinine 1.3 H Glucose 123 H POC Glucose 125 H 108 H Lactic Acid Calcium 7.8 L Ionized Calcium Phosphorus Magnesium Direct Bilirubin AST ALT Alkaline Phosphatase Lactate Dehydrogenase Troponin T C-Reactive Protein Total Protein Albumin Prealbumin Triglycerides Cholesterol LDL Cholesterol Direct HDL Cholesterol 25-OH Vitamin D Total PTH Intact Urine pH Urine WBC (Auto) Urine Creatinine Urine Total Protein Fluid Total Protein Vancomycin Trough Rheumatoid Factor Complement C4 Miscellaneous Test Crossmatch 11/05/16 11/05/16 11/05/16 12:23 13:09 13:25 WBC RBC Hgb Hct MCV MCH MCHC RDW Plt Count Lymph % (Auto) [place] % (Auto) Lymph # [place] # Baso # Seg Neutrophils % Seg Neuts % (Manual) Lymphocytes % (Manual) Monocytes % (Manual) Eosinophils % (Manual) Basophils % (Manual) Nucleated RBC % Seg Neutrophils # Seg Neutrophils # Man Lymphocytes # (Manual) Monocytes # (Manual) Eosinophils # (Manual) Basophils # (Manual) PT INR Fibrinogen dRVVT Confirm Interp Factor V Activity POC ABG pH POC ABG pCO2 POC ABG pO2 ABG pO2 ABG HCO3 ABG Base Excess ABG Hemoglobin Oxyhemoglobin Sodium Potassium Chloride Carbon Dioxide BUN Creatinine Glucose POC Glucose 124 H Lactic Acid Calcium Ionized Calcium Phosphorus Magnesium Direct Bilirubin AST ALT Alkaline Phosphatase Lactate Dehydrogenase Troponin T C-Reactive Protein 11.40 H Total Protein Albumin Prealbumin Triglycerides Cholesterol LDL Cholesterol Direct HDL Cholesterol 25-OH Vitamin D Total PTH Intact Urine pH 9.0 H Urine WBC (Auto) Urine Creatinine Urine Total Protein Fluid Total Protein Vancomycin Trough Rheumatoid Factor Complement C4 Miscellaneous Test Crossmatch 11/05/16 11/05/16 11/05/16 13:25 17:54 23:42 WBC RBC Hgb Hct MCV MCH MCHC RDW Plt Count Lymph % (Auto) [place] % (Auto) Lymph # [place] # Baso # Seg Neutrophils % Seg Neuts % (Manual) Lymphocytes % (Manual) Monocytes % (Manual) Eosinophils % (Manual) Basophils % (Manual) Nucleated RBC % Seg Neutrophils # Seg Neutrophils # Man Lymphocytes # (Manual) Monocytes # (Manual) Eosinophils # (Manual) Basophils # (Manual) PT INR Fibrinogen dRVVT Confirm Interp Factor V Activity POC ABG pH POC ABG pCO2 POC ABG pO2 ABG pO2 ABG HCO3 ABG Base Excess ABG Hemoglobin Oxyhemoglobin Sodium Potassium Chloride Carbon Dioxide BUN Creatinine Glucose POC Glucose 114 H 134 H Lactic Acid Calcium Ionized Calcium Phosphorus Magnesium Direct Bilirubin AST ALT Alkaline Phosphatase Lactate Dehydrogenase Troponin T C-Reactive Protein Total Protein Albumin Prealbumin Triglycerides Cholesterol LDL Cholesterol Direct HDL Cholesterol 25-OH Vitamin D Total PTH Intact Urine pH Urine WBC (Auto) Urine Creatinine Urine Total Protein Fluid Total Protein Vancomycin Trough Rheumatoid Factor Complement C4 Miscellaneous Test Flexitest 1 H Crossmatch 11/06/16 11/06/16 11/06/16 04:56 06:25 06:25 WBC RBC 2.50 L Hgb 7.3 L Hct 22.5 L MCV MCH MCHC RDW 16.9 H Plt Count Lymph % (Auto) [place] % (Auto) 10.5 H Lymph # [place] # 1.1 H Baso # Seg Neutrophils % Seg Neuts % (Manual) Lymphocytes % (Manual) Monocytes % (Manual) Eosinophils % (Manual) Basophils % (Manual) Nucleated RBC % Seg Neutrophils # Seg Neutrophils # Man Lymphocytes # (Manual) Monocytes # (Manual) Eosinophils # (Manual) Basophils # (Manual) PT INR Fibrinogen dRVVT Confirm Interp Factor V Activity POC ABG pH POC ABG pCO2 POC ABG pO2 ABG pO2 ABG HCO3 ABG Base Excess ABG Hemoglobin Oxyhemoglobin Sodium Potassium 5.1 H Chloride 95.9 L Carbon Dioxide BUN 52 H Creatinine 1.8 H Glucose 117 H POC Glucose 120 H Lactic Acid Calcium Ionized Calcium Phosphorus Magnesium Direct Bilirubin AST 103 H ALT 77 H Alkaline Phosphatase 285 H Lactate Dehydrogenase Troponin T C-Reactive Protein Total Protein 6.2 L Albumin 1.8 L Prealbumin 0.180 L Triglycerides Cholesterol LDL Cholesterol Direct HDL Cholesterol 25-OH Vitamin D Total PTH Intact Urine pH Urine WBC (Auto) Urine Creatinine Urine Total Protein Fluid Total Protein Vancomycin Trough Rheumatoid Factor Complement C4 Miscellaneous Test Crossmatch 11/06/16 11/06/16 11/06/16 11:56 17:14 23:52 WBC RBC Hgb Hct MCV MCH MCHC RDW Plt Count Lymph % (Auto) [place] % (Auto) Lymph # [place] # Baso # Seg Neutrophils % Seg Neuts % (Manual) Lymphocytes % (Manual) Monocytes % (Manual) Eosinophils % (Manual) Basophils % (Manual) Nucleated RBC % Seg Neutrophils # Seg Neutrophils # Man Lymphocytes # (Manual) Monocytes # (Manual) Eosinophils # (Manual) Basophils # (Manual) PT INR Fibrinogen dRVVT Confirm Interp Factor V Activity POC ABG pH POC ABG pCO2 POC ABG pO2 ABG pO2 ABG HCO3 ABG Base Excess ABG Hemoglobin Oxyhemoglobin Sodium Potassium Chloride Carbon Dioxide BUN Creatinine Glucose POC Glucose 141 H 125 H 130 H Lactic Acid Calcium Ionized Calcium Phosphorus Magnesium Direct Bilirubin AST ALT Alkaline Phosphatase Lactate Dehydrogenase Troponin T C-Reactive Protein Total Protein Albumin Prealbumin Triglycerides Cholesterol LDL Cholesterol Direct HDL Cholesterol 25-OH Vitamin D Total PTH Intact Urine pH Urine WBC (Auto) Urine Creatinine Urine Total Protein Fluid Total Protein Vancomycin Trough Rheumatoid Factor Complement C4 Miscellaneous Test Crossmatch 11/07/16 11/07/16 11/07/16 06:30 06:30 09:37 WBC RBC 2.18 L Hgb 6.3 L Hct 19.7 L* MCV MCH MCHC RDW 16.8 H Plt Count Lymph % (Auto) [place] % (Auto) 10.0 H Lymph # [place] # 1.0 H Baso # Seg Neutrophils % Seg Neuts % (Manual) Lymphocytes % (Manual) Monocytes % (Manual) Eosinophils % (Manual) Basophils % (Manual) Nucleated RBC % Seg Neutrophils # Seg Neutrophils # Man Lymphocytes # (Manual) Monocytes # (Manual) Eosinophils # (Manual) Basophils # (Manual) PT INR Fibrinogen dRVVT Confirm Interp Factor V Activity POC ABG pH POC ABG pCO2 POC ABG pO2 ABG pO2 ABG HCO3 ABG Base Excess ABG Hemoglobin Oxyhemoglobin Sodium 135 L Potassium Chloride 95.6 L Carbon Dioxide BUN 70 H Creatinine 2.0 H Glucose 126 H POC Glucose Lactic Acid Calcium Ionized Calcium Phosphorus Magnesium Direct Bilirubin AST ALT Alkaline Phosphatase Lactate Dehydrogenase Troponin T C-Reactive Protein Total Protein Albumin Prealbumin Triglycerides Cholesterol LDL Cholesterol Direct HDL Cholesterol 25-OH Vitamin D Total PTH Intact Urine pH Urine WBC (Auto) Urine Creatinine Urine Total Protein Fluid Total Protein Vancomycin Trough Rheumatoid Factor Complement C4 Miscellaneous Test Crossmatch See Detail 11/07/16 11/07/16 11/07/16 12:52 18:51 21:26 WBC RBC Hgb Hct MCV MCH MCHC RDW Plt Count Lymph % (Auto) [place] % (Auto) Lymph # [place] # Baso # Seg Neutrophils % Seg Neuts % (Manual) Lymphocytes % (Manual) Monocytes % (Manual) Eosinophils % (Manual) Basophils % (Manual) Nucleated RBC % Seg Neutrophils # Seg Neutrophils # Man Lymphocytes # (Manual) Monocytes # (Manual) Eosinophils # (Manual) Basophils # (Manual) PT INR Fibrinogen dRVVT Confirm Interp Factor V Activity POC ABG pH 7.523 H POC ABG pCO2 34.6 L POC ABG pO2 53 L ABG pO2 ABG HCO3 ABG Base Excess ABG Hemoglobin Oxyhemoglobin Sodium Potassium Chloride Carbon Dioxide BUN Creatinine Glucose POC Glucose 142 H 155 H Lactic Acid Calcium Ionized Calcium Phosphorus Magnesium Direct Bilirubin AST ALT Alkaline Phosphatase Lactate Dehydrogenase Troponin T C-Reactive Protein Total Protein Albumin Prealbumin Triglycerides Cholesterol LDL Cholesterol Direct HDL Cholesterol 25-OH Vitamin D Total PTH Intact Urine pH Urine WBC (Auto) Urine Creatinine Urine Total Protein Fluid Total Protein Vancomycin Trough Rheumatoid Factor Complement C4 Miscellaneous Test Crossmatch 11/07/16 11/08/16 11/08/16 21:34 13:03 23:37 WBC RBC 2.63 L Hgb 7.7 L Hct 22.7 L MCV MCH MCHC RDW 17.0 H Plt Count Lymph % (Auto) [place] % (Auto) Lymph # [place] # Baso # Seg Neutrophils % Seg Neuts % (Manual) Lymphocytes % (Manual) Monocytes % (Manual) Eosinophils % (Manual) Basophils % (Manual) Nucleated RBC % Seg Neutrophils # Seg Neutrophils # Man Lymphocytes # (Manual) Monocytes # (Manual) Eosinophils # (Manual) Basophils # (Manual) PT INR Fibrinogen dRVVT Confirm Interp Factor V Activity POC ABG pH 7.478 H POC ABG pCO2 34.0 L POC ABG pO2 50 L ABG pO2 ABG HCO3 ABG Base Excess ABG Hemoglobin Oxyhemoglobin Sodium Potassium Chloride Carbon Dioxide BUN Creatinine Glucose POC Glucose 113 H Lactic Acid Calcium Ionized Calcium Phosphorus Magnesium Direct Bilirubin AST ALT Alkaline Phosphatase Lactate Dehydrogenase Troponin T C-Reactive Protein Total Protein Albumin Prealbumin Triglycerides Cholesterol LDL Cholesterol Direct HDL Cholesterol 25-OH Vitamin D Total PTH Intact Urine pH Urine WBC (Auto) Urine Creatinine Urine Total Protein Fluid Total Protein Vancomycin Trough Rheumatoid Factor Complement C4 Miscellaneous Test Crossmatch 11/09/16 11/09/16 11/09/16 04:35 10:15 18:21 WBC RBC 2.68 L Hgb 7.8 L Hct 23.3 L MCV MCH MCHC RDW 17.0 H Plt Count Lymph % (Auto) [place] % (Auto) 12.1 H Lymph # [place] # 1.1 H Baso # Seg Neutrophils % Seg Neuts % (Manual) Lymphocytes % (Manual) Monocytes % (Manual) Eosinophils % (Manual) Basophils % (Manual) Nucleated RBC % Seg Neutrophils # Seg Neutrophils # Man Lymphocytes # (Manual) Monocytes # (Manual) Eosinophils # (Manual) Basophils # (Manual) PT INR Fibrinogen dRVVT Confirm Interp Factor V Activity POC ABG pH POC ABG pCO2 POC ABG pO2 ABG pO2 ABG HCO3 ABG Base Excess ABG Hemoglobin Oxyhemoglobin Sodium Potassium Chloride Carbon Dioxide BUN 51 H Creatinine 1.8 H Glucose POC Glucose 60 L Lactic Acid Calcium 8.3 L Ionized Calcium Phosphorus Magnesium Direct Bilirubin AST ALT Alkaline Phosphatase Lactate Dehydrogenase Troponin T C-Reactive Protein Total Protein Albumin Prealbumin Triglycerides Cholesterol LDL Cholesterol Direct HDL Cholesterol 25-OH Vitamin D Total PTH Intact Urine pH Urine WBC (Auto) Urine Creatinine Urine Total Protein Fluid Total Protein Vancomycin Trough Rheumatoid Factor Complement C4 Miscellaneous Test Crossmatch 11/09/16 11/10/16 11/10/16 18:55 07:00 11:51 WBC RBC Hgb Hct MCV MCH MCHC RDW Plt Count Lymph % (Auto) [place] % (Auto) Lymph # [place] # Baso # Seg Neutrophils % Seg Neuts % (Manual) Lymphocytes % (Manual) Monocytes % (Manual) Eosinophils % (Manual) Basophils % (Manual) Nucleated RBC % Seg Neutrophils # Seg Neutrophils # Man Lymphocytes # (Manual) Monocytes # (Manual) Eosinophils # (Manual) Basophils # (Manual) PT INR Fibrinogen dRVVT Confirm Interp Factor V Activity POC ABG pH POC ABG pCO2 POC ABG pO2 ABG pO2 ABG HCO3 ABG Base Excess ABG Hemoglobin Oxyhemoglobin Sodium Potassium 3.0 L D Chloride 97.4 L Carbon Dioxide BUN 28 H Creatinine 1.3 H Glucose POC Glucose 68 L 120 H Lactic Acid Calcium 7.8 L Ionized Calcium Phosphorus Magnesium Direct Bilirubin AST ALT Alkaline Phosphatase Lactate Dehydrogenase Troponin T C-Reactive Protein Total Protein Albumin Prealbumin Triglycerides Cholesterol LDL Cholesterol Direct HDL Cholesterol 25-OH Vitamin D Total PTH Intact Urine pH Urine WBC (Auto) Urine Creatinine Urine Total Protein Fluid Total Protein Vancomycin Trough Rheumatoid Factor Complement C4 Miscellaneous Test Crossmatch 11/10/16 11/11/16 11/11/16 14:20 06:59 06:59 WBC RBC 2.81 L Hgb 8.1 L Hct 24.4 L MCV MCH MCHC RDW 16.4 H Plt Count Lymph % (Auto) [place] % (Auto) 10.8 H Lymph # [place] # 1.0 H Baso # Seg Neutrophils % Seg Neuts % (Manual) Lymphocytes % (Manual) Monocytes % (Manual) Eosinophils % (Manual) Basophils % (Manual) Nucleated RBC % Seg Neutrophils # Seg Neutrophils # Man Lymphocytes # (Manual) Monocytes # (Manual) Eosinophils # (Manual) Basophils # (Manual) PT INR Fibrinogen dRVVT Confirm Interp Factor V Activity POC ABG pH POC ABG pCO2 POC ABG pO2 ABG pO2 ABG HCO3 ABG Base Excess ABG Hemoglobin Oxyhemoglobin Sodium Potassium Chloride Carbon Dioxide BUN Creatinine Glucose POC Glucose Lactic Acid Calcium Ionized Calcium Phosphorus Magnesium Direct Bilirubin AST ALT Alkaline Phosphatase Lactate Dehydrogenase 196 H Troponin T C-Reactive Protein Total Protein 6.1 L Albumin Prealbumin Triglycerides Cholesterol LDL Cholesterol Direct HDL Cholesterol 25-OH Vitamin D Total PTH Intact Urine pH Urine WBC (Auto) Urine Creatinine Urine Total Protein Fluid Total Protein < 3.0 L Vancomycin Trough Rheumatoid Factor Complement C4 Miscellaneous Test Crossmatch 11/11/16 11/11/16 11/12/16 06:59 09:50 04:00 WBC RBC Hgb Hct MCV MCH MCHC RDW Plt Count Lymph % (Auto) [place] % (Auto) Lymph # [place] # Baso # Seg Neutrophils % Seg Neuts % (Manual) Lymphocytes % (Manual) Monocytes % (Manual) Eosinophils % (Manual) Basophils % (Manual) Nucleated RBC % Seg Neutrophils # Seg Neutrophils # Man Lymphocytes # (Manual) Monocytes # (Manual) Eosinophils # (Manual) Basophils # (Manual) PT INR 1.18 H Fibrinogen dRVVT Confirm Interp Factor V Activity POC ABG pH POC ABG pCO2 POC ABG pO2 ABG pO2 ABG HCO3 ABG Base Excess ABG Hemoglobin Oxyhemoglobin Sodium 136 L 133 L Potassium Chloride 96.1 L 94.8 L Carbon Dioxide 21 L BUN 37 H 42 H Creatinine 1.8 H 2.0 H Glucose POC Glucose Lactic Acid Calcium Ionized Calcium Phosphorus Magnesium Direct Bilirubin AST ALT Alkaline Phosphatase Lactate Dehydrogenase Troponin T C-Reactive Protein Total Protein Albumin Prealbumin Triglycerides Cholesterol LDL Cholesterol Direct HDL Cholesterol 25-OH Vitamin D Total PTH Intact Urine pH Urine WBC (Auto) Urine Creatinine Urine Total Protein Fluid Total Protein Vancomycin Trough Rheumatoid Factor Complement C4 Miscellaneous Test Crossmatch 11/12/16 11/12/16 11/13/16 04:00 23:55 05:53 WBC RBC Hgb 8.9 L Hct 27.2 L MCV MCH MCHC RDW Plt Count Lymph % (Auto) [place] % (Auto) Lymph # [place] # Baso # Seg Neutrophils % Seg Neuts % (Manual) Lymphocytes % (Manual) Monocytes % (Manual) Eosinophils % (Manual) Basophils % (Manual) Nucleated RBC % Seg Neutrophils # Seg Neutrophils # Man Lymphocytes # (Manual) Monocytes # (Manual) Eosinophils # (Manual) Basophils # (Manual) PT INR Fibrinogen dRVVT Confirm Interp Factor V Activity POC ABG pH POC ABG pCO2 POC ABG pO2 ABG pO2 ABG HCO3 ABG Base Excess ABG Hemoglobin Oxyhemoglobin Sodium Potassium Chloride Carbon Dioxide BUN Creatinine Glucose POC Glucose 132 H 120 H Lactic Acid Calcium Ionized Calcium Phosphorus Magnesium Direct Bilirubin AST ALT Alkaline Phosphatase Lactate Dehydrogenase Troponin T C-Reactive Protein Total Protein Albumin Prealbumin Triglycerides Cholesterol LDL Cholesterol Direct HDL Cholesterol 25-OH Vitamin D Total PTH Intact Urine pH Urine WBC (Auto) Urine Creatinine Urine Total Protein Fluid Total Protein Vancomycin Trough Rheumatoid Factor Complement C4 Miscellaneous Test Crossmatch 11/13/16 11/13/16 11/13/16 11:43 17:09 23:41 WBC RBC Hgb Hct MCV MCH MCHC RDW Plt Count Lymph % (Auto) [place] % (Auto) Lymph # [place] # Baso # Seg Neutrophils % Seg Neuts % (Manual) Lymphocytes % (Manual) Monocytes % (Manual) Eosinophils % (Manual) Basophils % (Manual) Nucleated RBC % Seg Neutrophils # Seg Neutrophils # Man Lymphocytes # (Manual) Monocytes # (Manual) Eosinophils # (Manual) Basophils # (Manual) PT INR Fibrinogen dRVVT Confirm Interp Factor V Activity POC ABG pH POC ABG pCO2 POC ABG pO2 ABG pO2 ABG HCO3 ABG Base Excess ABG Hemoglobin Oxyhemoglobin Sodium Potassium Chloride Carbon Dioxide BUN Creatinine Glucose POC Glucose 114 H 113 H 108 H Lactic Acid Calcium Ionized Calcium Phosphorus Magnesium Direct Bilirubin AST ALT Alkaline Phosphatase Lactate Dehydrogenase Troponin T C-Reactive Protein Total Protein Albumin Prealbumin Triglycerides Cholesterol LDL Cholesterol Direct HDL Cholesterol 25-OH Vitamin D Total PTH Intact Urine pH Urine WBC (Auto) Urine Creatinine Urine Total Protein Fluid Total Protein Vancomycin Trough Rheumatoid Factor Complement C4 Miscellaneous Test Crossmatch 11/13/16 11/15/16 11/15/16 Unknown 00:37 03:30 WBC 11.2 H RBC 2.72 L Hgb 7.6 L Hct 23.4 L MCV MCH MCHC RDW 16.5 H Plt Count Lymph % (Auto) [place] % (Auto) Lymph # [place] # Baso # Seg Neutrophils % Seg Neuts % (Manual) Lymphocytes % (Manual) Monocytes % (Manual) Eosinophils % (Manual) Basophils % (Manual) Nucleated RBC % Seg Neutrophils # Seg Neutrophils # Man Lymphocytes # (Manual) Monocytes # (Manual) Eosinophils # (Manual) Basophils # (Manual) PT INR Fibrinogen dRVVT Confirm Interp Factor V Activity POC ABG pH POC ABG pCO2 POC ABG pO2 ABG pO2 ABG HCO3 ABG Base Excess ABG Hemoglobin Oxyhemoglobin Sodium 135 L Potassium Chloride 95.2 L Carbon Dioxide BUN 52 H Creatinine 2.2 H Glucose POC Glucose 108 H Lactic Acid Calcium Ionized Calcium Phosphorus Magnesium Direct Bilirubin AST ALT Alkaline Phosphatase Lactate Dehydrogenase Troponin T C-Reactive Protein Total Protein Albumin Prealbumin Triglycerides Cholesterol LDL Cholesterol Direct HDL Cholesterol 25-OH Vitamin D Total PTH Intact Urine pH Urine WBC (Auto) Urine Creatinine Urine Total Protein Fluid Total Protein Vancomycin Trough Rheumatoid Factor Complement C4 Miscellaneous Test Crossmatch 11/15/16 11/15/16 11/15/16 03:30 05:04 11:50 WBC RBC Hgb Hct MCV MCH MCHC RDW Plt Count Lymph % (Auto) [place] % (Auto) Lymph # [place] # Baso # Seg Neutrophils % Seg Neuts % (Manual) Lymphocytes % (Manual) Monocytes % (Manual) Eosinophils % (Manual) Basophils % (Manual) Nucleated RBC % Seg Neutrophils # Seg Neutrophils # Man Lymphocytes # (Manual) Monocytes # (Manual) Eosinophils # (Manual) Basophils # (Manual) PT INR Fibrinogen dRVVT Confirm Interp Factor V Activity POC ABG pH POC ABG pCO2 POC ABG pO2 ABG pO2 ABG HCO3 ABG Base Excess ABG Hemoglobin Oxyhemoglobin Sodium Potassium 3.4 L Chloride Carbon Dioxide BUN 25 H Creatinine 1.5 H Glucose 103 H POC Glucose 121 H 144 H Lactic Acid Calcium Ionized Calcium Phosphorus Magnesium Direct Bilirubin AST ALT Alkaline Phosphatase Lactate Dehydrogenase Troponin T C-Reactive Protein Total Protein Albumin Prealbumin Triglycerides Cholesterol LDL Cholesterol Direct HDL Cholesterol 25-OH Vitamin D Total PTH Intact Urine pH Urine WBC (Auto) Urine Creatinine Urine Total Protein Fluid Total Protein Vancomycin Trough Rheumatoid Factor Complement C4 Miscellaneous Test Crossmatch 11/15/16 11/15/16 11/16/16 21:28 23:20 11:44 WBC RBC Hgb Hct MCV MCH MCHC RDW Plt Count Lymph % (Auto) [place] % (Auto) Lymph # [place] # Baso # Seg Neutrophils % Seg Neuts % (Manual) Lymphocytes % (Manual) Monocytes % (Manual) Eosinophils % (Manual) Basophils % (Manual) Nucleated RBC % Seg Neutrophils # Seg Neutrophils # Man Lymphocytes # (Manual) Monocytes # (Manual) Eosinophils # (Manual) Basophils # (Manual) PT INR Fibrinogen dRVVT Confirm Interp Factor V Activity POC ABG pH 7.462 H POC ABG pCO2 POC ABG pO2 71 L ABG pO2 ABG HCO3 ABG Base Excess ABG Hemoglobin Oxyhemoglobin Sodium Potassium Chloride Carbon Dioxide BUN Creatinine Glucose POC Glucose 116 H 133 H Lactic Acid Calcium Ionized Calcium Phosphorus Magnesium Direct Bilirubin AST ALT Alkaline Phosphatase Lactate Dehydrogenase Troponin T C-Reactive Protein Total Protein Albumin Prealbumin Triglycerides Cholesterol LDL Cholesterol Direct HDL Cholesterol 25-OH Vitamin D Total PTH Intact Urine pH Urine WBC (Auto) Urine Creatinine Urine Total Protein Fluid Total Protein Vancomycin Trough Rheumatoid Factor Complement C4 Miscellaneous Test Crossmatch 11/16/16 11/16/16 11/16/16 12:20 17:05 23:35 WBC 11.7 H RBC 2.73 L Hgb 7.6 L Hct 23.7 L MCV MCH MCHC RDW 16.6 H Plt Count Lymph % (Auto) [place] % (Auto) Lymph # [place] # Baso # Seg Neutrophils % Seg Neuts % (Manual) Lymphocytes % (Manual) Monocytes % (Manual) Eosinophils % (Manual) Basophils % (Manual) Nucleated RBC % Seg Neutrophils # Seg Neutrophils # Man Lymphocytes # (Manual) Monocytes # (Manual) Eosinophils # (Manual) Basophils # (Manual) PT INR Fibrinogen dRVVT Confirm Interp Factor V Activity POC ABG pH POC ABG pCO2 POC ABG pO2 ABG pO2 ABG HCO3 ABG Base Excess ABG Hemoglobin Oxyhemoglobin Sodium Potassium Chloride Carbon Dioxide BUN Creatinine Glucose POC Glucose 154 H 125 H Lactic Acid Calcium Ionized Calcium Phosphorus Magnesium Direct Bilirubin AST ALT Alkaline Phosphatase Lactate Dehydrogenase Troponin T C-Reactive Protein Total Protein Albumin Prealbumin Triglycerides Cholesterol LDL Cholesterol Direct HDL Cholesterol 25-OH Vitamin D Total PTH Intact Urine pH Urine WBC (Auto) Urine Creatinine Urine Total Protein Fluid Total Protein Vancomycin Trough Rheumatoid Factor Complement C4 Miscellaneous Test Crossmatch 11/17/16 11/17/16 11/17/16 03:20 03:20 03:20 WBC RBC 2.55 L Hgb 7.3 L Hct 21.9 L MCV MCH MCHC RDW 16.6 H Plt Count Lymph % (Auto) [place] % (Auto) 11.5 H Lymph # [place] # 1.1 H Baso # Seg Neutrophils % Seg Neuts % (Manual) Lymphocytes % (Manual) Monocytes % (Manual) Eosinophils % (Manual) Basophils % (Manual) Nucleated RBC % Seg Neutrophils # Seg Neutrophils # Man Lymphocytes # (Manual) Monocytes # (Manual) Eosinophils # (Manual) Basophils # (Manual) PT 16.8 H INR 1.37 H Fibrinogen dRVVT Confirm Interp Factor V Activity POC ABG pH POC ABG pCO2 POC ABG pO2 ABG pO2 ABG HCO3 ABG Base Excess ABG Hemoglobin Oxyhemoglobin Sodium Potassium 3.5 L Chloride Carbon Dioxide BUN 21 H Creatinine Glucose POC Glucose Lactic Acid Calcium 7.9 L Ionized Calcium Phosphorus Magnesium Direct Bilirubin AST ALT Alkaline Phosphatase Lactate Dehydrogenase Troponin T C-Reactive Protein Total Protein Albumin Prealbumin Triglycerides Cholesterol LDL Cholesterol Direct HDL Cholesterol 25-OH Vitamin D Total PTH Intact Urine pH Urine WBC (Auto) Urine Creatinine Urine Total Protein Fluid Total Protein Vancomycin Trough Rheumatoid Factor Complement C4 Miscellaneous Test Crossmatch 11/17/16 11/17/16 11/17/16 06:34 11:21 21:22 WBC RBC Hgb Hct MCV MCH MCHC RDW Plt Count Lymph % (Auto) [place] % (Auto) Lymph # [place] # Baso # Seg Neutrophils % Seg Neuts % (Manual) Lymphocytes % (Manual) Monocytes % (Manual) Eosinophils % (Manual) Basophils % (Manual) Nucleated RBC % Seg Neutrophils # Seg Neutrophils # Man Lymphocytes # (Manual) Monocytes # (Manual) Eosinophils # (Manual) Basophils # (Manual) PT INR Fibrinogen dRVVT Confirm Interp Factor V Activity POC ABG pH 7.467 H POC ABG pCO2 POC ABG pO2 73 L ABG pO2 ABG HCO3 ABG Base Excess ABG Hemoglobin Oxyhemoglobin Sodium Potassium Chloride Carbon Dioxide BUN Creatinine Glucose POC Glucose 121 H 119 H Lactic Acid Calcium Ionized Calcium Phosphorus Magnesium Direct Bilirubin AST ALT Alkaline Phosphatase Lactate Dehydrogenase Troponin T C-Reactive Protein Total Protein Albumin Prealbumin Triglycerides Cholesterol LDL Cholesterol Direct HDL Cholesterol 25-OH Vitamin D Total PTH Intact Urine pH Urine WBC (Auto) Urine Creatinine Urine Total Protein Fluid Total Protein Vancomycin Trough Rheumatoid Factor Complement C4 Miscellaneous Test Crossmatch 11/18/16 11/18/16 11/19/16 12:16 17:19 00:00 WBC RBC Hgb Hct MCV MCH MCHC RDW Plt Count Lymph % (Auto) [place] % (Auto) Lymph # [place] # Baso # Seg Neutrophils % Seg Neuts % (Manual) Lymphocytes % (Manual) Monocytes % (Manual) Eosinophils % (Manual) Basophils % (Manual) Nucleated RBC % Seg Neutrophils # Seg Neutrophils # Man Lymphocytes # (Manual) Monocytes # (Manual) Eosinophils # (Manual) Basophils # (Manual) PT INR Fibrinogen dRVVT Confirm Interp Factor V Activity POC ABG pH POC ABG pCO2 POC ABG pO2 ABG pO2 ABG HCO3 ABG Base Excess ABG Hemoglobin Oxyhemoglobin Sodium Potassium Chloride Carbon Dioxide BUN Creatinine Glucose POC Glucose 124 H 162 H 139 H Lactic Acid Calcium Ionized Calcium Phosphorus Magnesium Direct Bilirubin AST ALT Alkaline Phosphatase Lactate Dehydrogenase Troponin T C-Reactive Protein Total Protein Albumin Prealbumin Triglycerides Cholesterol LDL Cholesterol Direct HDL Cholesterol 25-OH Vitamin D Total PTH Intact Urine pH Urine WBC (Auto) Urine Creatinine Urine Total Protein Fluid Total Protein Vancomycin Trough Rheumatoid Factor Complement C4 Miscellaneous Test Crossmatch 11/19/16 11/19/16 11/20/16 05:00 12:43 00:40 WBC RBC Hgb Hct MCV MCH MCHC RDW Plt Count Lymph % (Auto) [place] % (Auto) Lymph # [place] # Baso # Seg Neutrophils % Seg Neuts % (Manual) Lymphocytes % (Manual) Monocytes % (Manual) Eosinophils % (Manual) Basophils % (Manual) Nucleated RBC % Seg Neutrophils # Seg Neutrophils # Man Lymphocytes # (Manual) Monocytes # (Manual) Eosinophils # (Manual) Basophils # (Manual) PT INR Fibrinogen dRVVT Confirm Interp Factor V Activity POC ABG pH POC ABG pCO2 POC ABG pO2 ABG pO2 ABG HCO3 ABG Base Excess ABG Hemoglobin Oxyhemoglobin Sodium Potassium Chloride Carbon Dioxide BUN Creatinine Glucose POC Glucose 110 H 125 H 136 H Lactic Acid Calcium Ionized Calcium Phosphorus Magnesium Direct Bilirubin AST ALT Alkaline Phosphatase Lactate Dehydrogenase Troponin T C-Reactive Protein Total Protein Albumin Prealbumin Triglycerides Cholesterol LDL Cholesterol Direct HDL Cholesterol 25-OH Vitamin D Total PTH Intact Urine pH Urine WBC (Auto) Urine Creatinine Urine Total Protein Fluid Total Protein Vancomycin Trough Rheumatoid Factor Complement C4 Miscellaneous Test Crossmatch 11/20/16 11/20/16 11/20/16 05:00 05:00 05:51 WBC 13.1 H RBC 2.74 L Hgb 7.7 L Hct 23.6 L MCV MCH MCHC RDW 16.9 H Plt Count Lymph % (Auto) [place] % (Auto) 10.8 H Lymph # [place] # 1.4 H Baso # Seg Neutrophils % Seg Neuts % (Manual) Lymphocytes % (Manual) Monocytes % (Manual) Eosinophils % (Manual) Basophils % (Manual) Nucleated RBC % Seg Neutrophils # 7.9 H Seg Neutrophils # Man Lymphocytes # (Manual) Monocytes # (Manual) Eosinophils # (Manual) Basophils # (Manual) PT INR Fibrinogen dRVVT Confirm Interp Factor V Activity POC ABG pH POC ABG pCO2 POC ABG pO2 ABG pO2 ABG HCO3 ABG Base Excess ABG Hemoglobin Oxyhemoglobin Sodium Potassium Chloride Carbon Dioxide BUN 31 H Creatinine 1.8 H Glucose 129 H POC Glucose 133 H Lactic Acid Calcium Ionized Calcium Phosphorus Magnesium Direct Bilirubin AST ALT Alkaline Phosphatase Lactate Dehydrogenase Troponin T C-Reactive Protein Total Protein Albumin Prealbumin Triglycerides Cholesterol LDL Cholesterol Direct HDL Cholesterol 25-OH Vitamin D Total PTH Intact Urine pH Urine WBC (Auto) Urine Creatinine Urine Total Protein Fluid Total Protein Vancomycin Trough Rheumatoid Factor Complement C4 Miscellaneous Test Crossmatch 11/20/16 11/20/16 11/21/16 12:40 18:10 01:20 WBC RBC Hgb Hct MCV MCH MCHC RDW Plt Count Lymph % (Auto) [place] % (Auto) Lymph # [place] # Baso # Seg Neutrophils % Seg Neuts % (Manual) Lymphocytes % (Manual) Monocytes % (Manual) Eosinophils % (Manual) Basophils % (Manual) Nucleated RBC % Seg Neutrophils # Seg Neutrophils # Man Lymphocytes # (Manual) Monocytes # (Manual) Eosinophils # (Manual) Basophils # (Manual) PT INR Fibrinogen dRVVT Confirm Interp Factor V Activity POC ABG pH POC ABG pCO2 POC ABG pO2 ABG pO2 ABG HCO3 ABG Base Excess ABG Hemoglobin Oxyhemoglobin Sodium Potassium Chloride Carbon Dioxide BUN Creatinine Glucose POC Glucose 134 H 138 H 136 H Lactic Acid Calcium Ionized Calcium Phosphorus Magnesium Direct Bilirubin AST ALT Alkaline Phosphatase Lactate Dehydrogenase Troponin T C-Reactive Protein Total Protein Albumin Prealbumin Triglycerides Cholesterol LDL Cholesterol Direct HDL Cholesterol 25-OH Vitamin D Total PTH Intact Urine pH Urine WBC (Auto) Urine Creatinine Urine Total Protein Fluid Total Protein Vancomycin Trough Rheumatoid Factor Complement C4 Miscellaneous Test Crossmatch 11/21/16 11/21/16 11/21/16 07:04 07:45 07:45 WBC 22.0 H RBC 2.91 L Hgb 8.2 L Hct 25.4 L MCV MCH MCHC RDW 17.1 H Plt Count Lymph % (Auto) [place] % (Auto) Lymph # [place] # Baso # Seg Neutrophils % Seg Neuts % (Manual) Lymphocytes % (Manual) 8.0 L Monocytes % (Manual) Eosinophils % (Manual) Basophils % (Manual) Nucleated RBC % Seg Neutrophils # Seg Neutrophils # Man 14.7 H Lymphocytes # (Manual) Monocytes # (Manual) 1.1 H Eosinophils # (Manual) Basophils # (Manual) PT INR Fibrinogen dRVVT Confirm Interp Factor V Activity POC ABG pH POC ABG pCO2 POC ABG pO2 ABG pO2 ABG HCO3 ABG Base Excess ABG Hemoglobin Oxyhemoglobin Sodium Potassium Chloride Carbon Dioxide BUN 42 H Creatinine 2.0 H Glucose POC Glucose 108 H Lactic Acid Calcium Ionized Calcium Phosphorus Magnesium Direct Bilirubin AST ALT Alkaline Phosphatase Lactate Dehydrogenase Troponin T C-Reactive Protein Total Protein Albumin Prealbumin Triglycerides Cholesterol LDL Cholesterol Direct HDL Cholesterol 25-OH Vitamin D Total PTH Intact Urine pH Urine WBC (Auto) Urine Creatinine Urine Total Protein Fluid Total Protein Vancomycin Trough Rheumatoid Factor Complement C4 Miscellaneous Test Crossmatch 11/21/16 11/21/16 11/21/16 08:38 10:09 11:20 WBC RBC Hgb Hct MCV MCH MCHC RDW Plt Count Lymph % (Auto) [place] % (Auto) Lymph # [place] # Baso # Seg Neutrophils % Seg Neuts % (Manual) Lymphocytes % (Manual) Monocytes % (Manual) Eosinophils % (Manual) Basophils % (Manual) Nucleated RBC % Seg Neutrophils # Seg Neutrophils # Man Lymphocytes # (Manual) Monocytes # (Manual) Eosinophils # (Manual) Basophils # (Manual) PT INR Fibrinogen dRVVT Confirm Interp Factor V Activity POC ABG pH 7.346 L POC ABG pCO2 34.4 L POC ABG pO2 314 H ABG pO2 ABG HCO3 ABG Base Excess ABG Hemoglobin Oxyhemoglobin Sodium Potassium Chloride Carbon Dioxide BUN Creatinine Glucose POC Glucose 195 H 153 H Lactic Acid Calcium Ionized Calcium Phosphorus Magnesium Direct Bilirubin AST ALT Alkaline Phosphatase Lactate Dehydrogenase Troponin T C-Reactive Protein Total Protein Albumin Prealbumin Triglycerides Cholesterol LDL Cholesterol Direct HDL Cholesterol 25-OH Vitamin D Total PTH Intact Urine pH Urine WBC (Auto) Urine Creatinine Urine Total Protein Fluid Total Protein Vancomycin Trough Rheumatoid Factor Complement C4 Miscellaneous Test Crossmatch 11/21/16 11/22/16 11/22/16 23:37 04:48 05:00 WBC 29.7 H RBC 2.73 L Hgb 7.5 L Hct 24.2 L MCV MCH 27 L MCHC RDW 17.4 H Plt Count Lymph % (Auto) [place] % (Auto) Lymph # [place] # Baso # Seg Neutrophils % Seg Neuts % (Manual) Lymphocytes % (Manual) 7.0 L Monocytes % (Manual) Eosinophils % (Manual) Basophils % (Manual) Nucleated RBC % Seg Neutrophils # Seg Neutrophils # Man 15.4 H Lymphocytes # (Manual) Monocytes # (Manual) Eosinophils # (Manual) Basophils # (Manual) PT INR Fibrinogen dRVVT Confirm Interp Factor V Activity POC ABG pH POC ABG pCO2 24.6 L POC ABG pO2 189 H ABG pO2 ABG HCO3 ABG Base Excess ABG Hemoglobin Oxyhemoglobin Sodium Potassium Chloride Carbon Dioxide BUN Creatinine Glucose POC Glucose 65 L Lactic Acid Calcium Ionized Calcium Phosphorus Magnesium Direct Bilirubin AST ALT Alkaline Phosphatase Lactate Dehydrogenase Troponin T C-Reactive Protein Total Protein Albumin Prealbumin Triglycerides Cholesterol LDL Cholesterol Direct HDL Cholesterol 25-OH Vitamin D Total PTH Intact Urine pH Urine WBC (Auto) Urine Creatinine Urine Total Protein Fluid Total Protein Vancomycin Trough Rheumatoid Factor Complement C4 Miscellaneous Test Crossmatch 11/22/16 11/23/16 11/23/16 05:00 03:44 04:06 WBC RBC 2.52 L Hgb 7.2 L Hct 21.5 L MCV MCH MCHC RDW 17.1 H Plt Count Lymph % (Auto) [place] % (Auto) 12.4 H Lymph # [place] # 1.4 H Baso # Seg Neutrophils % Seg Neuts % (Manual) Lymphocytes % (Manual) Monocytes % (Manual) Eosinophils % (Manual) Basophils % (Manual) Nucleated RBC % Seg Neutrophils # Seg Neutrophils # Man Lymphocytes # (Manual) Monocytes # (Manual) Eosinophils # (Manual) Basophils # (Manual) PT INR Fibrinogen dRVVT Confirm Interp Factor V Activity POC ABG pH 7.493 H POC ABG pCO2 29.5 L POC ABG pO2 49 L ABG pO2 ABG HCO3 ABG Base Excess ABG Hemoglobin Oxyhemoglobin Sodium 134 L Potassium Chloride 95.9 L Carbon Dioxide 14 L D BUN 51 H Creatinine 2.6 H Glucose POC Glucose Lactic Acid Calcium Ionized Calcium Phosphorus Magnesium Direct Bilirubin AST ALT Alkaline Phosphatase Lactate Dehydrogenase Troponin T C-Reactive Protein Total Protein Albumin Prealbumin Triglycerides Cholesterol LDL Cholesterol Direct HDL Cholesterol 25-OH Vitamin D Total PTH Intact Urine pH Urine WBC (Auto) Urine Creatinine Urine Total Protein Fluid Total Protein Vancomycin Trough Rheumatoid Factor Complement C4 Miscellaneous Test Crossmatch 11/23/16 11/23/16 11/24/16 04:06 11:29 06:39 WBC RBC Hgb Hct MCV MCH MCHC RDW Plt Count Lymph % (Auto) [place] % (Auto) Lymph # [place] # Baso # Seg Neutrophils % Seg Neuts % (Manual) Lymphocytes % (Manual) Monocytes % (Manual) Eosinophils % (Manual) Basophils % (Manual) Nucleated RBC % Seg Neutrophils # Seg Neutrophils # Man Lymphocytes # (Manual) Monocytes # (Manual) Eosinophils # (Manual) Basophils # (Manual) PT INR Fibrinogen dRVVT Confirm Interp Factor V Activity POC ABG pH POC ABG pCO2 POC ABG pO2 ABG pO2 ABG HCO3 ABG Base Excess ABG Hemoglobin Oxyhemoglobin Sodium 136 L Potassium Chloride 95.2 L Carbon Dioxide BUN 60 H Creatinine 2.9 H Glucose POC Glucose 69 L 305 H Lactic Acid Calcium Ionized Calcium Phosphorus Magnesium 1.60 L Direct Bilirubin AST ALT Alkaline Phosphatase Lactate Dehydrogenase Troponin T C-Reactive Protein Total Protein Albumin Prealbumin Triglycerides Cholesterol LDL Cholesterol Direct HDL Cholesterol 25-OH Vitamin D Total PTH Intact Urine pH Urine WBC (Auto) Urine Creatinine Urine Total Protein Fluid Total Protein Vancomycin Trough Rheumatoid Factor Complement C4 Miscellaneous Test Crossmatch 11/24/16 11/24/16 11/24/16 06:43 08:08 08:08 WBC 11.2 H RBC 2.47 L Hgb 6.8 L Hct 20.6 L MCV MCH MCHC RDW 17.0 H Plt Count Lymph % (Auto) [place] % (Auto) 10.3 H Lymph # [place] # 1.2 H Baso # Seg Neutrophils % Seg Neuts % (Manual) Lymphocytes % (Manual) Monocytes % (Manual) Eosinophils % (Manual) Basophils % (Manual) Nucleated RBC % Seg Neutrophils # Seg Neutrophils # Man Lymphocytes # (Manual) Monocytes # (Manual) Eosinophils # (Manual) Basophils # (Manual) PT INR Fibrinogen dRVVT Confirm Interp Factor V Activity POC ABG pH POC ABG pCO2 POC ABG pO2 ABG pO2 ABG HCO3 ABG Base Excess ABG Hemoglobin Oxyhemoglobin Sodium 135 L Potassium Chloride 96.3 L Carbon Dioxide BUN 61 H Creatinine 3.1 H Glucose POC Glucose 62 L Lactic Acid Calcium 8.2 L Ionized Calcium Phosphorus Magnesium Direct Bilirubin AST ALT Alkaline Phosphatase Lactate Dehydrogenase Troponin T C-Reactive Protein Total Protein Albumin Prealbumin Triglycerides Cholesterol LDL Cholesterol Direct HDL Cholesterol 25-OH Vitamin D Total PTH Intact Urine pH Urine WBC (Auto) Urine Creatinine Urine Total Protein Fluid Total Protein Vancomycin Trough Rheumatoid Factor Complement C4 Miscellaneous Test Crossmatch 11/24/16 11/24/16 11/24/16 08:34 11:20 12:41 WBC RBC Hgb Hct MCV MCH MCHC RDW Plt Count Lymph % (Auto) [place] % (Auto) Lymph # [place] # Baso # Seg Neutrophils % Seg Neuts % (Manual) Lymphocytes % (Manual) Monocytes % (Manual) Eosinophils % (Manual) Basophils % (Manual) Nucleated RBC % Seg Neutrophils # Seg Neutrophils # Man Lymphocytes # (Manual) Monocytes # (Manual) Eosinophils # (Manual) Basophils # (Manual) PT INR Fibrinogen dRVVT Confirm Interp Factor V Activity POC ABG pH POC ABG pCO2 POC ABG pO2 ABG pO2 ABG HCO3 ABG Base Excess ABG Hemoglobin Oxyhemoglobin Sodium Potassium Chloride Carbon Dioxide BUN Creatinine Glucose POC Glucose 108 H Lactic Acid Calcium Ionized Calcium Phosphorus Magnesium 1.60 L Direct Bilirubin AST ALT Alkaline Phosphatase Lactate Dehydrogenase Troponin T C-Reactive Protein Total Protein Albumin Prealbumin Triglycerides Cholesterol LDL Cholesterol Direct HDL Cholesterol 25-OH Vitamin D Total PTH Intact Urine pH Urine WBC (Auto) Urine Creatinine Urine Total Protein Fluid Total Protein Vancomycin Trough Rheumatoid Factor Complement C4 Miscellaneous Test Crossmatch See Detail 11/25/16 11/25/16 11/25/16 00:03 04:42 04:42 WBC RBC 3.03 L Hgb 8.6 L Hct 25.3 L MCV MCH MCHC RDW 16.2 H Plt Count Lymph % (Auto) [place] % (Auto) 8.1 H Lymph # [place] # Baso # Seg Neutrophils % 71.3 H Seg Neuts % (Manual) Lymphocytes % (Manual) Monocytes % (Manual) Eosinophils % (Manual) Basophils % (Manual) Nucleated RBC % Seg Neutrophils # Seg Neutrophils # Man Lymphocytes # (Manual) Monocytes # (Manual) Eosinophils # (Manual) Basophils # (Manual) PT INR Fibrinogen dRVVT Confirm Interp Factor V Activity POC ABG pH POC ABG pCO2 POC ABG pO2 ABG pO2 ABG HCO3 ABG Base Excess ABG Hemoglobin Oxyhemoglobin Sodium Potassium Chloride Carbon Dioxide BUN 61 H Creatinine 3.0 H Glucose 102 H POC Glucose 113 H Lactic Acid Calcium 8.2 L Ionized Calcium Phosphorus Magnesium Direct Bilirubin AST ALT Alkaline Phosphatase 142 H Lactate Dehydrogenase Troponin T C-Reactive Protein Total Protein 5.7 L Albumin 1.5 L Prealbumin Triglycerides Cholesterol LDL Cholesterol Direct HDL Cholesterol 25-OH Vitamin D Total PTH Intact Urine pH Urine WBC (Auto) Urine Creatinine Urine Total Protein Fluid Total Protein Vancomycin Trough Rheumatoid Factor Complement C4 Miscellaneous Test Crossmatch 11/25/16 11/25/16 11/25/16 05:12 11:31 14:12 WBC RBC Hgb Hct MCV MCH MCHC RDW Plt Count Lymph % (Auto) [place] % (Auto) Lymph # [place] # Baso # Seg Neutrophils % Seg Neuts % (Manual) Lymphocytes % (Manual) Monocytes % (Manual) Eosinophils % (Manual) Basophils % (Manual) Nucleated RBC % Seg Neutrophils # Seg Neutrophils # Man Lymphocytes # (Manual) Monocytes # (Manual) Eosinophils # (Manual) Basophils # (Manual) PT INR Fibrinogen dRVVT Confirm Interp Factor V Activity POC ABG pH 7.487 H POC ABG pCO2 POC ABG pO2 153 H ABG pO2 ABG HCO3 ABG Base Excess ABG Hemoglobin Oxyhemoglobin Sodium Potassium Chloride Carbon Dioxide BUN Creatinine Glucose POC Glucose 131 H 140 H Lactic Acid Calcium Ionized Calcium Phosphorus Magnesium Direct Bilirubin AST ALT Alkaline Phosphatase Lactate Dehydrogenase Troponin T C-Reactive Protein Total Protein Albumin Prealbumin Triglycerides Cholesterol LDL Cholesterol Direct HDL Cholesterol 25-OH Vitamin D Total PTH Intact Urine pH Urine WBC (Auto) Urine Creatinine Urine Total Protein Fluid Total Protein Vancomycin Trough Rheumatoid Factor Complement C4 Miscellaneous Test Crossmatch 11/25/16 11/26/16 11/26/16 17:23 00:09 05:13 WBC RBC 2.94 L Hgb 8.4 L Hct 24.6 L MCV MCH MCHC RDW 16.4 H Plt Count Lymph % (Auto) [place] % (Auto) 12.3 H Lymph # [place] # 1.1 H Baso # Seg Neutrophils % Seg Neuts % (Manual) Lymphocytes % (Manual) Monocytes % (Manual) Eosinophils % (Manual) Basophils % (Manual) Nucleated RBC % Seg Neutrophils # Seg Neutrophils # Man Lymphocytes # (Manual) Monocytes # (Manual) Eosinophils # (Manual) Basophils # (Manual) PT INR Fibrinogen dRVVT Confirm Interp Factor V Activity POC ABG pH POC ABG pCO2 POC ABG pO2 ABG pO2 ABG HCO3 ABG Base Excess ABG Hemoglobin Oxyhemoglobin Sodium Potassium Chloride Carbon Dioxide BUN Creatinine Glucose POC Glucose 146 H 112 H Lactic Acid Calcium Ionized Calcium Phosphorus Magnesium Direct Bilirubin AST ALT Alkaline Phosphatase Lactate Dehydrogenase Troponin T C-Reactive Protein Total Protein Albumin Prealbumin Triglycerides Cholesterol LDL Cholesterol Direct HDL Cholesterol 25-OH Vitamin D Total PTH Intact Urine pH Urine WBC (Auto) Urine Creatinine Urine Total Protein Fluid Total Protein Vancomycin Trough Rheumatoid Factor Complement C4 Miscellaneous Test Crossmatch 11/26/16 11/26/16 11/26/16 05:13 05:28 11:53 WBC RBC Hgb Hct MCV MCH MCHC RDW Plt Count Lymph % (Auto) [place] % (Auto) Lymph # [place] # Baso # Seg Neutrophils % Seg Neuts % (Manual) Lymphocytes % (Manual) Monocytes % (Manual) Eosinophils % (Manual) Basophils % (Manual) Nucleated RBC % Seg Neutrophils # Seg Neutrophils # Man Lymphocytes # (Manual) Monocytes # (Manual) Eosinophils # (Manual) Basophils # (Manual) PT INR Fibrinogen dRVVT Confirm Interp Factor V Activity POC ABG pH POC ABG pCO2 POC ABG pO2 ABG pO2 ABG HCO3 ABG Base Excess ABG Hemoglobin Oxyhemoglobin Sodium Potassium Chloride 97.8 L Carbon Dioxide BUN 37 H Creatinine 2.0 H Glucose 109 H POC Glucose 117 H 111 H Lactic Acid Calcium 7.9 L Ionized Calcium Phosphorus 1.80 L D Magnesium Direct Bilirubin AST ALT Alkaline Phosphatase Lactate Dehydrogenase Troponin T C-Reactive Protein Total Protein Albumin Prealbumin Triglycerides Cholesterol LDL Cholesterol Direct HDL Cholesterol 25-OH Vitamin D Total PTH Intact Urine pH Urine WBC (Auto) Urine Creatinine Urine Total Protein Fluid Total Protein Vancomycin Trough Rheumatoid Factor Complement C4 Miscellaneous Test Crossmatch 11/26/16 11/27/16 11/27/16 17:14 04:50 06:02 WBC RBC Hgb Hct MCV MCH MCHC RDW Plt Count Lymph % (Auto) [place] % (Auto) Lymph # [place] # Baso # Seg Neutrophils % Seg Neuts % (Manual) Lymphocytes % (Manual) Monocytes % (Manual) Eosinophils % (Manual) Basophils % (Manual) Nucleated RBC % Seg Neutrophils # Seg Neutrophils # Man Lymphocytes # (Manual) Monocytes # (Manual) Eosinophils # (Manual) Basophils # (Manual) PT INR Fibrinogen dRVVT Confirm Interp Factor V Activity POC ABG pH POC ABG pCO2 POC ABG pO2 ABG pO2 75.2 L ABG HCO3 26.4 H ABG Base Excess ABG Hemoglobin 7.6 L Oxyhemoglobin 94.8 L Sodium Potassium Chloride Carbon Dioxide BUN 49 H Creatinine 2.3 H Glucose POC Glucose 115 H Lactic Acid Calcium Ionized Calcium Phosphorus 1.50 L Magnesium Direct Bilirubin AST ALT Alkaline Phosphatase Lactate Dehydrogenase Troponin T C-Reactive Protein Total Protein Albumin Prealbumin Triglycerides Cholesterol LDL Cholesterol Direct HDL Cholesterol 25-OH Vitamin D Total PTH Intact Urine pH Urine WBC (Auto) Urine Creatinine Urine Total Protein Fluid Total Protein Vancomycin Trough Rheumatoid Factor Complement C4 Miscellaneous Test Crossmatch 11/27/16 11/27/16 11/27/16 06:02 11:25 17:25 WBC 11.6 H RBC 2.75 L Hgb 7.6 L Hct 23.4 L MCV MCH MCHC RDW 16.5 H Plt Count Lymph % (Auto) [place] % (Auto) Lymph # [place] # Baso # Seg Neutrophils % Seg Neuts % (Manual) Lymphocytes % (Manual) Monocytes % (Manual) Eosinophils % (Manual) Basophils % (Manual) Nucleated RBC % Seg Neutrophils # Seg Neutrophils # Man Lymphocytes # (Manual) Monocytes # (Manual) Eosinophils # (Manual) Basophils # (Manual) PT INR Fibrinogen dRVVT Confirm Interp Factor V Activity POC ABG pH POC ABG pCO2 POC ABG pO2 ABG pO2 ABG HCO3 ABG Base Excess ABG Hemoglobin Oxyhemoglobin Sodium Potassium Chloride Carbon Dioxide BUN Creatinine Glucose POC Glucose 114 H 126 H Lactic Acid Calcium Ionized Calcium Phosphorus Magnesium Direct Bilirubin AST ALT Alkaline Phosphatase Lactate Dehydrogenase Troponin T C-Reactive Protein Total Protein Albumin Prealbumin Triglycerides Cholesterol LDL Cholesterol Direct HDL Cholesterol 25-OH Vitamin D Total PTH Intact Urine pH Urine WBC (Auto) Urine Creatinine Urine Total Protein Fluid Total Protein Vancomycin Trough Rheumatoid Factor Complement C4 Miscellaneous Test Crossmatch 11/28/16 11/28/16 11/28/16 04:45 05:33 05:44 WBC RBC Hgb Hct MCV MCH MCHC RDW Plt Count Lymph % (Auto) [place] % (Auto) Lymph # [place] # Baso # Seg Neutrophils % Seg Neuts % (Manual) Lymphocytes % (Manual) Monocytes % (Manual) Eosinophils % (Manual) Basophils % (Manual) Nucleated RBC % Seg Neutrophils # Seg Neutrophils # Man Lymphocytes # (Manual) Monocytes # (Manual) Eosinophils # (Manual) Basophils # (Manual) PT INR Fibrinogen dRVVT Confirm Interp Factor V Activity POC ABG pH POC ABG pCO2 POC ABG pO2 ABG pO2 99.3 H ABG HCO3 ABG Base Excess ABG Hemoglobin 8.3 L Oxyhemoglobin Sodium Potassium Chloride Carbon Dioxide BUN 63 H Creatinine 2.4 H Glucose 102 H POC Glucose 108 H Lactic Acid Calcium Ionized Calcium Phosphorus 1.80 L Magnesium Direct Bilirubin AST ALT Alkaline Phosphatase Lactate Dehydrogenase Troponin T C-Reactive Protein Total Protein Albumin Prealbumin Triglycerides Cholesterol LDL Cholesterol Direct HDL Cholesterol 25-OH Vitamin D Total PTH Intact Urine pH Urine WBC (Auto) Urine Creatinine Urine Total Protein Fluid Total Protein Vancomycin Trough Rheumatoid Factor Complement C4 Miscellaneous Test Crossmatch 11/28/16 11/28/16 11/28/16 12:31 16:09 23:46 WBC RBC Hgb Hct MCV MCH MCHC RDW Plt Count Lymph % (Auto) [place] % (Auto) Lymph # [place] # Baso # Seg Neutrophils % Seg Neuts % (Manual) Lymphocytes % (Manual) Monocytes % (Manual) Eosinophils % (Manual) Basophils % (Manual) Nucleated RBC % Seg Neutrophils # Seg Neutrophils # Man Lymphocytes # (Manual) Monocytes # (Manual) Eosinophils # (Manual) Basophils # (Manual) PT INR Fibrinogen dRVVT Confirm Interp Factor V Activity POC ABG pH POC ABG pCO2 POC ABG pO2 ABG pO2 ABG HCO3 ABG Base Excess ABG Hemoglobin Oxyhemoglobin Sodium Potassium Chloride Carbon Dioxide BUN Creatinine Glucose POC Glucose 126 H 111 H 119 H Lactic Acid Calcium Ionized Calcium Phosphorus Magnesium Direct Bilirubin AST ALT Alkaline Phosphatase Lactate Dehydrogenase Troponin T C-Reactive Protein Total Protein Albumin Prealbumin Triglycerides Cholesterol LDL Cholesterol Direct HDL Cholesterol 25-OH Vitamin D Total PTH Intact Urine pH Urine WBC (Auto) Urine Creatinine Urine Total Protein Fluid Total Protein Vancomycin Trough Rheumatoid Factor Complement C4 Miscellaneous Test Crossmatch 11/29/16 11/29/16 11/29/16 03:33 04:52 05:10 WBC RBC Hgb Hct MCV MCH MCHC RDW Plt Count Lymph % (Auto) [place] % (Auto) Lymph # [place] # Baso # Seg Neutrophils % Seg Neuts % (Manual) Lymphocytes % (Manual) Monocytes % (Manual) Eosinophils % (Manual) Basophils % (Manual) Nucleated RBC % Seg Neutrophils # Seg Neutrophils # Man Lymphocytes # (Manual) Monocytes # (Manual) Eosinophils # (Manual) Basophils # (Manual) PT INR Fibrinogen dRVVT Confirm Interp Factor V Activity POC ABG pH POC ABG pCO2 POC ABG pO2 ABG pO2 ABG HCO3 ABG Base Excess ABG Hemoglobin 7.0 L Oxyhemoglobin 94.9 L Sodium Potassium Chloride Carbon Dioxide BUN 73 H Creatinine 2.7 H Glucose POC Glucose 108 H Lactic Acid Calcium Ionized Calcium Phosphorus Magnesium Direct Bilirubin AST ALT Alkaline Phosphatase Lactate Dehydrogenase Troponin T C-Reactive Protein Total Protein Albumin Prealbumin Triglycerides Cholesterol LDL Cholesterol Direct HDL Cholesterol 25-OH Vitamin D Total PTH Intact Urine pH Urine WBC (Auto) Urine Creatinine Urine Total Protein Fluid Total Protein Vancomycin Trough Rheumatoid Factor Complement C4 Miscellaneous Test Crossmatch 11/29/16 11/29/16 11/29/16 12:16 18:05 23:46 WBC RBC Hgb Hct MCV MCH MCHC RDW Plt Count Lymph % (Auto) [place] % (Auto) Lymph # [place] # Baso # Seg Neutrophils % Seg Neuts % (Manual) Lymphocytes % (Manual) Monocytes % (Manual) Eosinophils % (Manual) Basophils % (Manual) Nucleated RBC % Seg Neutrophils # Seg Neutrophils # Man Lymphocytes # (Manual) Monocytes # (Manual) Eosinophils # (Manual) Basophils # (Manual) PT INR Fibrinogen dRVVT Confirm Interp Factor V Activity POC ABG pH POC ABG pCO2 POC ABG pO2 ABG pO2 ABG HCO3 ABG Base Excess ABG Hemoglobin Oxyhemoglobin Sodium Potassium Chloride Carbon Dioxide BUN Creatinine Glucose POC Glucose 133 H 146 H 141 H Lactic Acid Calcium Ionized Calcium Phosphorus Magnesium Direct Bilirubin AST ALT Alkaline Phosphatase Lactate Dehydrogenase Troponin T C-Reactive Protein Total Protein Albumin Prealbumin Triglycerides Cholesterol LDL Cholesterol Direct HDL Cholesterol 25-OH Vitamin D Total PTH Intact Urine pH Urine WBC (Auto) Urine Creatinine Urine Total Protein Fluid Total Protein Vancomycin Trough Rheumatoid Factor Complement C4 Miscellaneous Test Crossmatch 11/30/16 11/30/16 11/30/16 04:17 04:17 04:32 WBC 12.0 H RBC 2.80 L Hgb 7.8 L Hct 23.6 L MCV MCH MCHC RDW 16.6 H Plt Count Lymph % (Auto) [place] % (Auto) 11.3 H Lymph # [place] # 1.4 H Baso # Seg Neutrophils % Seg Neuts % (Manual) Lymphocytes % (Manual) Monocytes % (Manual) Eosinophils % (Manual) Basophils % (Manual) Nucleated RBC % Seg Neutrophils # 8.2 H Seg Neutrophils # Man Lymphocytes # (Manual) Monocytes # (Manual) Eosinophils # (Manual) Basophils # (Manual) PT INR Fibrinogen dRVVT Confirm Interp Factor V Activity POC ABG pH POC ABG pCO2 POC ABG pO2 ABG pO2 ABG HCO3 ABG Base Excess ABG Hemoglobin Oxyhemoglobin Sodium 169 H* D Potassium 5.1 H Chloride 121.5 H Carbon Dioxide BUN 34 H Creatinine 1.3 H D Glucose 133 H POC Glucose 131 H Lactic Acid Calcium 10.3 H Ionized Calcium Phosphorus Magnesium Direct Bilirubin AST ALT Alkaline Phosphatase Lactate Dehydrogenase Troponin T C-Reactive Protein Total Protein Albumin Prealbumin Triglycerides Cholesterol LDL Cholesterol Direct HDL Cholesterol 25-OH Vitamin D Total PTH Intact Urine pH Urine WBC (Auto) Urine Creatinine Urine Total Protein Fluid Total Protein Vancomycin Trough Rheumatoid Factor Complement C4 Miscellaneous Test Crossmatch 11/30/16 11/30/16 11/30/16 05:45 11:10 17:26 WBC RBC Hgb Hct MCV MCH MCHC RDW Plt Count Lymph % (Auto) [place] % (Auto) Lymph # [place] # Baso # Seg Neutrophils % Seg Neuts % (Manual) Lymphocytes % (Manual) Monocytes % (Manual) Eosinophils % (Manual) Basophils % (Manual) Nucleated RBC % Seg Neutrophils # Seg Neutrophils # Man Lymphocytes # (Manual) Monocytes # (Manual) Eosinophils # (Manual) Basophils # (Manual) PT INR Fibrinogen dRVVT Confirm Interp Factor V Activity POC ABG pH POC ABG pCO2 POC ABG pO2 ABG pO2 ABG HCO3 ABG Base Excess ABG Hemoglobin Oxyhemoglobin Sodium Potassium Chloride Carbon Dioxide BUN 45 H Creatinine 1.6 H Glucose 131 H POC Glucose 146 H 134 H Lactic Acid Calcium Ionized Calcium Phosphorus Magnesium Direct Bilirubin AST ALT Alkaline Phosphatase Lactate Dehydrogenase Troponin T C-Reactive Protein Total Protein Albumin Prealbumin Triglycerides Cholesterol LDL Cholesterol Direct HDL Cholesterol 25-OH Vitamin D Total PTH Intact Urine pH Urine WBC (Auto) Urine Creatinine Urine Total Protein Fluid Total Protein Vancomycin Trough Rheumatoid Factor Complement C4 Miscellaneous Test Crossmatch 11/30/16 12/01/16 12/01/16 23:35 00:06 03:35 WBC RBC Hgb Hct MCV MCH MCHC RDW Plt Count Lymph % (Auto) [place] % (Auto) Lymph # [place] # Baso # Seg Neutrophils % Seg Neuts % (Manual) Lymphocytes % (Manual) Monocytes % (Manual) Eosinophils % (Manual) Basophils % (Manual) Nucleated RBC % Seg Neutrophils # Seg Neutrophils # Man Lymphocytes # (Manual) Monocytes # (Manual) Eosinophils # (Manual) Basophils # (Manual) PT INR Fibrinogen dRVVT Confirm Interp Factor V Activity POC ABG pH POC ABG pCO2 POC ABG pO2 ABG pO2 ABG HCO3 ABG Base Excess ABG Hemoglobin 6.9 L Oxyhemoglobin Sodium Potassium Chloride Carbon Dioxide BUN 58 H Creatinine 1.8 H Glucose 146 H POC Glucose 151 H Lactic Acid Calcium Ionized Calcium Phosphorus Magnesium Direct Bilirubin AST ALT Alkaline Phosphatase Lactate Dehydrogenase Troponin T C-Reactive Protein Total Protein Albumin Prealbumin Triglycerides Cholesterol LDL Cholesterol Direct HDL Cholesterol 25-OH Vitamin D Total PTH Intact Urine pH Urine WBC (Auto) Urine Creatinine Urine Total Protein Fluid Total Protein Vancomycin Trough Rheumatoid Factor Complement C4 Miscellaneous Test Crossmatch 12/01/16 12/01/16 12/01/16 03:35 05:47 11:52 WBC 12.3 H RBC 2.82 L Hgb 7.8 L Hct 23.7 L MCV MCH MCHC RDW 16.7 H Plt Count Lymph % (Auto) [place] % (Auto) 9.8 H Lymph # [place] # 1.2 H Baso # Seg Neutrophils % Seg Neuts % (Manual) Lymphocytes % (Manual) Monocytes % (Manual) Eosinophils % (Manual) Basophils % (Manual) Nucleated RBC % Seg Neutrophils # 8.4 H Seg Neutrophils # Man Lymphocytes # (Manual) Monocytes # (Manual) Eosinophils # (Manual) Basophils # (Manual) PT INR Fibrinogen dRVVT Confirm Interp Factor V Activity POC ABG pH POC ABG pCO2 POC ABG pO2 ABG pO2 ABG HCO3 ABG Base Excess ABG Hemoglobin Oxyhemoglobin Sodium Potassium Chloride Carbon Dioxide BUN Creatinine Glucose POC Glucose 152 H 152 H Lactic Acid Calcium Ionized Calcium Phosphorus Magnesium Direct Bilirubin AST ALT Alkaline Phosphatase Lactate Dehydrogenase Troponin T C-Reactive Protein Total Protein Albumin Prealbumin Triglycerides Cholesterol LDL Cholesterol Direct HDL Cholesterol 25-OH Vitamin D Total PTH Intact Urine pH Urine WBC (Auto) Urine Creatinine Urine Total Protein Fluid Total Protein Vancomycin Trough Rheumatoid Factor Complement C4 Miscellaneous Test Crossmatch 12/01/16 12/01/16 12/02/16 17:40 23:41 05:00 WBC RBC Hgb Hct MCV MCH MCHC RDW Plt Count Lymph % (Auto) [place] % (Auto) Lymph # [place] # Baso # Seg Neutrophils % Seg Neuts % (Manual) Lymphocytes % (Manual) Monocytes % (Manual) Eosinophils % (Manual) Basophils % (Manual) Nucleated RBC % Seg Neutrophils # Seg Neutrophils # Man Lymphocytes # (Manual) Monocytes # (Manual) Eosinophils # (Manual) Basophils # (Manual) PT INR Fibrinogen dRVVT Confirm Interp Factor V Activity POC ABG pH POC ABG pCO2 POC ABG pO2 ABG pO2 ABG HCO3 ABG Base Excess ABG Hemoglobin Oxyhemoglobin Sodium Potassium Chloride Carbon Dioxide BUN 45 H Creatinine Glucose 115 H POC Glucose 140 H 144 H Lactic Acid Calcium Ionized Calcium Phosphorus Magnesium Direct Bilirubin AST ALT Alkaline Phosphatase Lactate Dehydrogenase Troponin T C-Reactive Protein Total Protein Albumin Prealbumin Triglycerides Cholesterol LDL Cholesterol Direct HDL Cholesterol 25-OH Vitamin D Total PTH Intact Urine pH Urine WBC (Auto) Urine Creatinine Urine Total Protein Fluid Total Protein Vancomycin Trough Rheumatoid Factor Complement C4 Miscellaneous Test Crossmatch 12/02/16 12/02/16 12/02/16 05:31 11:20 17:38 WBC RBC Hgb Hct MCV MCH MCHC RDW Plt Count Lymph % (Auto) [place] % (Auto) Lymph # [place] # Baso # Seg Neutrophils % Seg Neuts % (Manual) Lymphocytes % (Manual) Monocytes % (Manual) Eosinophils % (Manual) Basophils % (Manual) Nucleated RBC % Seg Neutrophils # Seg Neutrophils # Man Lymphocytes # (Manual) Monocytes # (Manual) Eosinophils # (Manual) Basophils # (Manual) PT INR Fibrinogen dRVVT Confirm Interp Factor V Activity POC ABG pH POC ABG pCO2 POC ABG pO2 ABG pO2 ABG HCO3 ABG Base Excess ABG Hemoglobin Oxyhemoglobin Sodium Potassium Chloride Carbon Dioxide BUN Creatinine Glucose POC Glucose 136 H 177 H 139 H Lactic Acid Calcium Ionized Calcium Phosphorus Magnesium Direct Bilirubin AST ALT Alkaline Phosphatase Lactate Dehydrogenase Troponin T C-Reactive Protein Total Protein Albumin Prealbumin Triglycerides Cholesterol LDL Cholesterol Direct HDL Cholesterol 25-OH Vitamin D Total PTH Intact Urine pH Urine WBC (Auto) Urine Creatinine Urine Total Protein Fluid Total Protein Vancomycin Trough Rheumatoid Factor Complement C4 Miscellaneous Test Crossmatch 12/02/16 12/03/16 12/03/16 23:43 04:00 04:00 WBC 20.4 H RBC 2.74 L Hgb 7.4 L Hct 23.6 L MCV MCH 27 L MCHC RDW 17.1 H Plt Count Lymph % (Auto) [place] % (Auto) Lymph # [place] # Baso # Seg Neutrophils % Seg Neuts % (Manual) 31.0 L Lymphocytes % (Manual) Monocytes % (Manual) Eosinophils % (Manual) Basophils % (Manual) Nucleated RBC % Seg Neutrophils # Seg Neutrophils # Man Lymphocytes # (Manual) Monocytes # (Manual) Eosinophils # (Manual) Basophils # (Manual) PT INR Fibrinogen dRVVT Confirm Interp Factor V Activity POC ABG pH POC ABG pCO2 POC ABG pO2 ABG pO2 ABG HCO3 ABG Base Excess ABG Hemoglobin Oxyhemoglobin Sodium Potassium Chloride Carbon Dioxide BUN 61 H Creatinine 1.6 H Glucose 119 H POC Glucose 158 H Lactic Acid Calcium Ionized Calcium Phosphorus Magnesium Direct Bilirubin AST ALT Alkaline Phosphatase Lactate Dehydrogenase Troponin T C-Reactive Protein Total Protein Albumin Prealbumin Triglycerides Cholesterol LDL Cholesterol Direct HDL Cholesterol 25-OH Vitamin D Total PTH Intact Urine pH Urine WBC (Auto) Urine Creatinine Urine Total Protein Fluid Total Protein Vancomycin Trough Rheumatoid Factor Complement C4 Miscellaneous Test Crossmatch 12/03/16 12/03/16 12/03/16 05:02 12:11 18:16 WBC RBC Hgb Hct MCV MCH MCHC RDW Plt Count Lymph % (Auto) [place] % (Auto) Lymph # [place] # Baso # Seg Neutrophils % Seg Neuts % (Manual) Lymphocytes % (Manual) Monocytes % (Manual) Eosinophils % (Manual) Basophils % (Manual) Nucleated RBC % Seg Neutrophils # Seg Neutrophils # Man Lymphocytes # (Manual) Monocytes # (Manual) Eosinophils # (Manual) Basophils # (Manual) PT INR Fibrinogen dRVVT Confirm Interp Factor V Activity POC ABG pH POC ABG pCO2 POC ABG pO2 ABG pO2 ABG HCO3 ABG Base Excess ABG Hemoglobin Oxyhemoglobin Sodium Potassium Chloride Carbon Dioxide BUN Creatinine Glucose POC Glucose 146 H 157 H 124 H Lactic Acid Calcium Ionized Calcium Phosphorus Magnesium Direct Bilirubin AST ALT Alkaline Phosphatase Lactate Dehydrogenase Troponin T C-Reactive Protein Total Protein Albumin Prealbumin Triglycerides Cholesterol LDL Cholesterol Direct HDL Cholesterol 25-OH Vitamin D Total PTH Intact Urine pH Urine WBC (Auto) Urine Creatinine Urine Total Protein Fluid Total Protein Vancomycin Trough Rheumatoid Factor Complement C4 Miscellaneous Test Crossmatch 12/03/16 12/04/16 12/04/16 23:41 04:00 04:45 WBC RBC Hgb Hct MCV MCH MCHC RDW Plt Count Lymph % (Auto) [place] % (Auto) Lymph # [place] # Baso # Seg Neutrophils % Seg Neuts % (Manual) Lymphocytes % (Manual) Monocytes % (Manual) Eosinophils % (Manual) Basophils % (Manual) Nucleated RBC % Seg Neutrophils # Seg Neutrophils # Man Lymphocytes # (Manual) Monocytes # (Manual) Eosinophils # (Manual) Basophils # (Manual) PT INR Fibrinogen dRVVT Confirm Interp Factor V Activity POC ABG pH POC ABG pCO2 POC ABG pO2 ABG pO2 ABG HCO3 ABG Base Excess ABG Hemoglobin Oxyhemoglobin Sodium Potassium Chloride Carbon Dioxide BUN 76 H Creatinine 1.6 H Glucose POC Glucose 130 H 136 H Lactic Acid Calcium Ionized Calcium Phosphorus Magnesium Direct Bilirubin AST ALT Alkaline Phosphatase 155 H Lactate Dehydrogenase Troponin T C-Reactive Protein Total Protein 5.5 L Albumin 1.5 L Prealbumin Triglycerides Cholesterol LDL Cholesterol Direct HDL Cholesterol 25-OH Vitamin D Total PTH Intact Urine pH Urine WBC (Auto) Urine Creatinine Urine Total Protein Fluid Total Protein Vancomycin Trough Rheumatoid Factor Complement C4 Miscellaneous Test Crossmatch 12/04/16 12/04/16 12/05/16 12:08 17:23 00:10 WBC RBC Hgb Hct MCV MCH MCHC RDW Plt Count Lymph % (Auto) [place] % (Auto) Lymph # [place] # Baso # Seg Neutrophils % Seg Neuts % (Manual) Lymphocytes % (Manual) Monocytes % (Manual) Eosinophils % (Manual) Basophils % (Manual) Nucleated RBC % Seg Neutrophils # Seg Neutrophils # Man Lymphocytes # (Manual) Monocytes # (Manual) Eosinophils # (Manual) Basophils # (Manual) PT INR Fibrinogen dRVVT Confirm Interp Factor V Activity POC ABG pH POC ABG pCO2 POC ABG pO2 ABG pO2 ABG HCO3 ABG Base Excess ABG Hemoglobin Oxyhemoglobin Sodium Potassium Chloride Carbon Dioxide BUN Creatinine Glucose POC Glucose 114 H 129 H 124 H Lactic Acid Calcium Ionized Calcium Phosphorus Magnesium Direct Bilirubin AST ALT Alkaline Phosphatase Lactate Dehydrogenase Troponin T C-Reactive Protein Total Protein Albumin Prealbumin Triglycerides Cholesterol LDL Cholesterol Direct HDL Cholesterol 25-OH Vitamin D Total PTH Intact Urine pH Urine WBC (Auto) Urine Creatinine Urine Total Protein Fluid Total Protein Vancomycin Trough Rheumatoid Factor Complement C4 Miscellaneous Test Crossmatch 12/05/16 12/05/16 12/05/16 05:00 05:00 05:18 WBC RBC Hgb Hct MCV MCH MCHC RDW Plt Count Lymph % (Auto) [place] % (Auto) Lymph # [place] # Baso # Seg Neutrophils % Seg Neuts % (Manual) Lymphocytes % (Manual) Monocytes % (Manual) Eosinophils % (Manual) Basophils % (Manual) Nucleated RBC % Seg Neutrophils # Seg Neutrophils # Man Lymphocytes # (Manual) Monocytes # (Manual) Eosinophils # (Manual) Basophils # (Manual) PT INR Fibrinogen dRVVT Confirm Interp Factor V Activity POC ABG pH POC ABG pCO2 POC ABG pO2 ABG pO2 ABG HCO3 ABG Base Excess ABG Hemoglobin Oxyhemoglobin Sodium Potassium Chloride Carbon Dioxide 21 L BUN 85 H Creatinine 1.9 H Glucose 131 H POC Glucose 154 H Lactic Acid Calcium Ionized Calcium Phosphorus Magnesium Direct Bilirubin AST ALT Alkaline Phosphatase Lactate Dehydrogenase Troponin T C-Reactive Protein 19.30 H Total Protein Albumin Prealbumin Triglycerides Cholesterol LDL Cholesterol Direct HDL Cholesterol 25-OH Vitamin D Total PTH Intact Urine pH Urine WBC (Auto) Urine Creatinine Urine Total Protein Fluid Total Protein Vancomycin Trough Rheumatoid Factor Complement C4 Miscellaneous Test Crossmatch 12/05/16 12/05/16 12/05/16 11:43 17:46 23:25 WBC RBC Hgb Hct MCV MCH MCHC RDW Plt Count Lymph % (Auto) [place] % (Auto) Lymph # [place] # Baso # Seg Neutrophils % Seg Neuts % (Manual) Lymphocytes % (Manual) Monocytes % (Manual) Eosinophils % (Manual) Basophils % (Manual) Nucleated RBC % Seg Neutrophils # Seg Neutrophils # Man Lymphocytes # (Manual) Monocytes # (Manual) Eosinophils # (Manual) Basophils # (Manual) PT INR Fibrinogen dRVVT Confirm Interp Factor V Activity POC ABG pH POC ABG pCO2 POC ABG pO2 ABG pO2 ABG HCO3 ABG Base Excess ABG Hemoglobin Oxyhemoglobin Sodium Potassium Chloride Carbon Dioxide BUN Creatinine Glucose POC Glucose 117 H 113 H 111 H Lactic Acid Calcium Ionized Calcium Phosphorus Magnesium Direct Bilirubin AST ALT Alkaline Phosphatase Lactate Dehydrogenase Troponin T C-Reactive Protein Total Protein Albumin Prealbumin Triglycerides Cholesterol LDL Cholesterol Direct HDL Cholesterol 25-OH Vitamin D Total PTH Intact Urine pH Urine WBC (Auto) Urine Creatinine Urine Total Protein Fluid Total Protein Vancomycin Trough Rheumatoid Factor Complement C4 Miscellaneous Test Crossmatch 12/05/16 12/06/16 12/06/16 Unknown 04:58 06:00 WBC RBC Hgb Hct MCV MCH MCHC RDW Plt Count Lymph % (Auto) [place] % (Auto) Lymph # [place] # Baso # Seg Neutrophils % Seg Neuts % (Manual) Lymphocytes % (Manual) Monocytes % (Manual) Eosinophils % (Manual) Basophils % (Manual) Nucleated RBC % Seg Neutrophils # Seg Neutrophils # Man Lymphocytes # (Manual) Monocytes # (Manual) Eosinophils # (Manual) Basophils # (Manual) PT INR Fibrinogen dRVVT Confirm Interp Factor V Activity POC ABG pH POC ABG pCO2 POC ABG pO2 ABG pO2 75.2 L ABG HCO3 ABG Base Excess -3.4 L ABG Hemoglobin 7.4 L Oxyhemoglobin 94.5 L Sodium Potassium Chloride Carbon Dioxide 20 L BUN 99 H Creatinine 2.1 H Glucose 126 H POC Glucose 145 H Lactic Acid Calcium Ionized Calcium Phosphorus 4.80 H Magnesium Direct Bilirubin AST ALT Alkaline Phosphatase Lactate Dehydrogenase Troponin T C-Reactive Protein Total Protein Albumin Prealbumin Triglycerides Cholesterol LDL Cholesterol Direct HDL Cholesterol 25-OH Vitamin D Total PTH Intact Urine pH Urine WBC (Auto) Urine Creatinine Urine Total Protein Fluid Total Protein Vancomycin Trough Rheumatoid Factor Complement C4 Miscellaneous Test Crossmatch 12/06/16 12/06/16 12/06/16 06:46 11:54 17:55 WBC RBC Hgb 8.3 L Hct 26.4 L MCV MCH MCHC RDW Plt Count Lymph % (Auto) [place] % (Auto) Lymph # [place] # Baso # Seg Neutrophils % Seg Neuts % (Manual) Lymphocytes % (Manual) Monocytes % (Manual) Eosinophils % (Manual) Basophils % (Manual) Nucleated RBC % Seg Neutrophils # Seg Neutrophils # Man Lymphocytes # (Manual) Monocytes # (Manual) Eosinophils # (Manual) Basophils # (Manual) PT INR Fibrinogen dRVVT Confirm Interp Factor V Activity POC ABG pH POC ABG pCO2 POC ABG pO2 ABG pO2 ABG HCO3 ABG Base Excess ABG Hemoglobin Oxyhemoglobin Sodium Potassium Chloride Carbon Dioxide BUN Creatinine Glucose POC Glucose 126 H 157 H Lactic Acid Calcium Ionized Calcium Phosphorus Magnesium Direct Bilirubin AST ALT Alkaline Phosphatase Lactate Dehydrogenase Troponin T C-Reactive Protein Total Protein Albumin Prealbumin Triglycerides Cholesterol LDL Cholesterol Direct HDL Cholesterol 25-OH Vitamin D Total PTH Intact Urine pH Urine WBC (Auto) Urine Creatinine Urine Total Protein Fluid Total Protein Vancomycin Trough Rheumatoid Factor Complement C4 Miscellaneous Test Crossmatch 12/06/16 12/07/16 12/07/16 23:59 05:34 06:30 WBC RBC Hgb Hct MCV MCH MCHC RDW Plt Count Lymph % (Auto) [place] % (Auto) Lymph # [place] # Baso # Seg Neutrophils % Seg Neuts % (Manual) Lymphocytes % (Manual) Monocytes % (Manual) Eosinophils % (Manual) Basophils % (Manual) Nucleated RBC % Seg Neutrophils # Seg Neutrophils # Man Lymphocytes # (Manual) Monocytes # (Manual) Eosinophils # (Manual) Basophils # (Manual) PT INR Fibrinogen dRVVT Confirm Interp Factor V Activity POC ABG pH POC ABG pCO2 POC ABG pO2 ABG pO2 ABG HCO3 ABG Base Excess ABG Hemoglobin Oxyhemoglobin Sodium Potassium Chloride Carbon Dioxide BUN 67 H Creatinine 1.4 H Glucose 126 H POC Glucose 129 H 129 H Lactic Acid Calcium Ionized Calcium Phosphorus Magnesium Direct Bilirubin AST ALT Alkaline Phosphatase Lactate Dehydrogenase Troponin T C-Reactive Protein Total Protein Albumin Prealbumin Triglycerides Cholesterol LDL Cholesterol Direct HDL Cholesterol 25-OH Vitamin D Total PTH Intact Urine pH Urine WBC (Auto) Urine Creatinine Urine Total Protein Fluid Total Protein Vancomycin Trough Rheumatoid Factor Complement C4 Miscellaneous Test Crossmatch 12/07/16 12/07/16 12/07/16 06:30 08:00 09:45 WBC 18.8 H RBC 2.52 L Hgb 6.9 L 6.8 L Hct 21.2 L 21.1 L MCV MCH 27 L MCHC RDW 18.0 H Plt Count Lymph % (Auto) [place] % (Auto) 9.9 H Lymph # [place] # 1.9 H Baso # Seg Neutrophils % 71.8 H Seg Neuts % (Manual) Lymphocytes % (Manual) Monocytes % (Manual) Eosinophils % (Manual) Basophils % (Manual) Nucleated RBC % Seg Neutrophils # 13.5 H Seg Neutrophils # Man Lymphocytes # (Manual) Monocytes # (Manual) Eosinophils # (Manual) Basophils # (Manual) PT INR Fibrinogen dRVVT Confirm Interp Factor V Activity POC ABG pH POC ABG pCO2 POC ABG pO2 ABG pO2 ABG HCO3 ABG Base Excess ABG Hemoglobin Oxyhemoglobin Sodium Potassium Chloride Carbon Dioxide BUN Creatinine Glucose POC Glucose Lactic Acid Calcium Ionized Calcium Phosphorus Magnesium Direct Bilirubin AST ALT Alkaline Phosphatase Lactate Dehydrogenase Troponin T C-Reactive Protein Total Protein Albumin Prealbumin Triglycerides Cholesterol LDL Cholesterol Direct HDL Cholesterol 25-OH Vitamin D Total PTH Intact Urine pH Urine WBC (Auto) Urine Creatinine Urine Total Protein Fluid Total Protein Vancomycin Trough Rheumatoid Factor Complement C4 Miscellaneous Test Crossmatch See Detail 12/07/16 12/07/16 12/07/16 11:44 18:19 23:59 WBC RBC Hgb Hct MCV MCH MCHC RDW Plt Count Lymph % (Auto) [place] % (Auto) Lymph # [place] # Baso # Seg Neutrophils % Seg Neuts % (Manual) Lymphocytes % (Manual) Monocytes % (Manual) Eosinophils % (Manual) Basophils % (Manual) Nucleated RBC % Seg Neutrophils # Seg Neutrophils # Man Lymphocytes # (Manual) Monocytes # (Manual) Eosinophils # (Manual) Basophils # (Manual) PT INR Fibrinogen dRVVT Confirm Interp Factor V Activity POC ABG pH POC ABG pCO2 POC ABG pO2 ABG pO2 ABG HCO3 ABG Base Excess ABG Hemoglobin Oxyhemoglobin Sodium Potassium Chloride Carbon Dioxide BUN Creatinine Glucose POC Glucose 137 H 138 H 133 H Lactic Acid Calcium Ionized Calcium Phosphorus Magnesium Direct Bilirubin AST ALT Alkaline Phosphatase Lactate Dehydrogenase Troponin T C-Reactive Protein Total Protein Albumin Prealbumin Triglycerides Cholesterol LDL Cholesterol Direct HDL Cholesterol 25-OH Vitamin D Total PTH Intact Urine pH Urine WBC (Auto) Urine Creatinine Urine Total Protein Fluid Total Protein Vancomycin Trough Rheumatoid Factor Complement C4 Miscellaneous Test Crossmatch 12/08/16 12/08/16 12/08/16 05:25 05:30 05:30 WBC 23.8 H RBC 2.88 L Hgb 8.1 L Hct 24.3 L MCV MCH MCHC RDW 16.7 H Plt Count Lymph % (Auto) [place] % (Auto) Lymph # [place] # Baso # Seg Neutrophils % Seg Neuts % (Manual) 76.0 H Lymphocytes % (Manual) 9.0 L Monocytes % (Manual) 9.0 H Eosinophils % (Manual) Basophils % (Manual) Nucleated RBC % Seg Neutrophils # Seg Neutrophils # Man 18.1 H Lymphocytes # (Manual) Monocytes # (Manual) 2.1 H Eosinophils # (Manual) Basophils # (Manual) PT INR Fibrinogen dRVVT Confirm Interp Factor V Activity POC ABG pH POC ABG pCO2 POC ABG pO2 ABG pO2 ABG HCO3 ABG Base Excess ABG Hemoglobin Oxyhemoglobin Sodium Potassium Chloride Carbon Dioxide 21 L BUN 76 H Creatinine 1.6 H Glucose 133 H POC Glucose 177 H Lactic Acid Calcium Ionized Calcium Phosphorus Magnesium Direct Bilirubin AST ALT Alkaline Phosphatase Lactate Dehydrogenase Troponin T C-Reactive Protein Total Protein Albumin Prealbumin Triglycerides Cholesterol LDL Cholesterol Direct HDL Cholesterol 25-OH Vitamin D Total PTH Intact Urine pH Urine WBC (Auto) Urine Creatinine Urine Total Protein Fluid Total Protein Vancomycin Trough Rheumatoid Factor Complement C4 Miscellaneous Test Crossmatch 12/08/16 12/08/16 12/09/16 11:45 18:00 00:00 WBC RBC Hgb Hct MCV MCH MCHC RDW Plt Count Lymph % (Auto) [place] % (Auto) Lymph # [place] # Baso # Seg Neutrophils % Seg Neuts % (Manual) Lymphocytes % (Manual) Monocytes % (Manual) Eosinophils % (Manual) Basophils % (Manual) Nucleated RBC % Seg Neutrophils # Seg Neutrophils # Man Lymphocytes # (Manual) Monocytes # (Manual) Eosinophils # (Manual) Basophils # (Manual) PT INR Fibrinogen dRVVT Confirm Interp Factor V Activity POC ABG pH POC ABG pCO2 POC ABG pO2 ABG pO2 ABG HCO3 ABG Base Excess ABG Hemoglobin Oxyhemoglobin Sodium Potassium Chloride Carbon Dioxide BUN Creatinine Glucose POC Glucose 163 H 123 H 137 H Lactic Acid Calcium Ionized Calcium Phosphorus Magnesium Direct Bilirubin AST ALT Alkaline Phosphatase Lactate Dehydrogenase Troponin T C-Reactive Protein Total Protein Albumin Prealbumin Triglycerides Cholesterol LDL Cholesterol Direct HDL Cholesterol 25-OH Vitamin D Total PTH Intact Urine pH Urine WBC (Auto) Urine Creatinine Urine Total Protein Fluid Total Protein Vancomycin Trough Rheumatoid Factor Complement C4 Miscellaneous Test Crossmatch 12/09/16 12/09/16 12/09/16 05:34 06:00 06:00 WBC 15.5 H RBC 2.87 L Hgb 8.0 L Hct 24.2 L MCV MCH MCHC RDW 17.2 H Plt Count Lymph % (Auto) [place] % (Auto) 11.6 H Lymph # [place] # 1.8 H Baso # Seg Neutrophils % 70.8 H Seg Neuts % (Manual) Lymphocytes % (Manual) Monocytes % (Manual) Eosinophils % (Manual) Basophils % (Manual) Nucleated RBC % Seg Neutrophils # 11.0 H Seg Neutrophils # Man Lymphocytes # (Manual) Monocytes # (Manual) Eosinophils # (Manual) Basophils # (Manual) PT INR Fibrinogen dRVVT Confirm Interp Factor V Activity POC ABG pH POC ABG pCO2 POC ABG pO2 ABG pO2 ABG HCO3 ABG Base Excess ABG Hemoglobin Oxyhemoglobin Sodium Potassium Chloride Carbon Dioxide BUN 51 H Creatinine Glucose 117 H POC Glucose 136 H Lactic Acid Calcium Ionized Calcium Phosphorus Magnesium Direct Bilirubin AST ALT Alkaline Phosphatase Lactate Dehydrogenase Troponin T C-Reactive Protein Total Protein Albumin Prealbumin Triglycerides Cholesterol LDL Cholesterol Direct HDL Cholesterol 25-OH Vitamin D Total PTH Intact Urine pH Urine WBC (Auto) Urine Creatinine Urine Total Protein Fluid Total Protein Vancomycin Trough Rheumatoid Factor Complement C4 Miscellaneous Test Crossmatch 12/09/16 12/09/16 12/09/16 12:29 17:52 23:10 WBC RBC Hgb Hct MCV MCH MCHC RDW Plt Count Lymph % (Auto) [place] % (Auto) Lymph # [place] # Baso # Seg Neutrophils % Seg Neuts % (Manual) Lymphocytes % (Manual) Monocytes % (Manual) Eosinophils % (Manual) Basophils % (Manual) Nucleated RBC % Seg Neutrophils # Seg Neutrophils # Man Lymphocytes # (Manual) Monocytes # (Manual) Eosinophils # (Manual) Basophils # (Manual) PT INR Fibrinogen dRVVT Confirm Interp Factor V Activity POC ABG pH POC ABG pCO2 POC ABG pO2 ABG pO2 ABG HCO3 ABG Base Excess ABG Hemoglobin Oxyhemoglobin Sodium Potassium Chloride Carbon Dioxide BUN Creatinine Glucose POC Glucose 139 H 140 H 129 H Lactic Acid Calcium Ionized Calcium Phosphorus Magnesium Direct Bilirubin AST ALT Alkaline Phosphatase Lactate Dehydrogenase Troponin T C-Reactive Protein Total Protein Albumin Prealbumin Triglycerides Cholesterol LDL Cholesterol Direct HDL Cholesterol 25-OH Vitamin D Total PTH Intact Urine pH Urine WBC (Auto) Urine Creatinine Urine Total Protein Fluid Total Protein Vancomycin Trough Rheumatoid Factor Complement C4 Miscellaneous Test Crossmatch 12/10/16 12/10/16 12/10/16 05:00 05:00 06:54 WBC 15.7 H RBC 2.87 L Hgb 8.2 L Hct 24.4 L MCV MCH MCHC RDW 17.2 H Plt Count Lymph % (Auto) [place] % (Auto) 8.3 H Lymph # [place] # 1.3 H Baso # Seg Neutrophils % 72.8 H Seg Neuts % (Manual) Lymphocytes % (Manual) Monocytes % (Manual) Eosinophils % (Manual) Basophils % (Manual) Nucleated RBC % Seg Neutrophils # 11.4 H Seg Neutrophils # Man Lymphocytes # (Manual) Monocytes # (Manual) Eosinophils # (Manual) Basophils # (Manual) PT INR Fibrinogen dRVVT Confirm Interp Factor V Activity POC ABG pH POC ABG pCO2 POC ABG pO2 ABG pO2 ABG HCO3 ABG Base Excess ABG Hemoglobin Oxyhemoglobin Sodium Potassium Chloride Carbon Dioxide BUN 64 H Creatinine 1.4 H Glucose 134 H POC Glucose 154 H Lactic Acid Calcium Ionized Calcium Phosphorus Magnesium Direct Bilirubin AST ALT Alkaline Phosphatase Lactate Dehydrogenase Troponin T C-Reactive Protein Total Protein Albumin Prealbumin Triglycerides Cholesterol LDL Cholesterol Direct HDL Cholesterol 25-OH Vitamin D Total PTH Intact Urine pH Urine WBC (Auto) Urine Creatinine Urine Total Protein Fluid Total Protein Vancomycin Trough Rheumatoid Factor Complement C4 Miscellaneous Test Crossmatch 12/10/16 12/10/16 12/10/16 11:58 17:29 23:52 WBC RBC Hgb Hct MCV MCH MCHC RDW Plt Count Lymph % (Auto) [place] % (Auto) Lymph # [place] # Baso # Seg Neutrophils % Seg Neuts % (Manual) Lymphocytes % (Manual) Monocytes % (Manual) Eosinophils % (Manual) Basophils % (Manual) Nucleated RBC % Seg Neutrophils # Seg Neutrophils # Man Lymphocytes # (Manual) Monocytes # (Manual) Eosinophils # (Manual) Basophils # (Manual) PT INR Fibrinogen dRVVT Confirm Interp Factor V Activity POC ABG pH POC ABG pCO2 POC ABG pO2 ABG pO2 ABG HCO3 ABG Base Excess ABG Hemoglobin Oxyhemoglobin Sodium Potassium Chloride Carbon Dioxide BUN Creatinine Glucose POC Glucose 144 H 163 H 125 H Lactic Acid Calcium Ionized Calcium Phosphorus Magnesium Direct Bilirubin AST ALT Alkaline Phosphatase Lactate Dehydrogenase Troponin T C-Reactive Protein Total Protein Albumin Prealbumin Triglycerides Cholesterol LDL Cholesterol Direct HDL Cholesterol 25-OH Vitamin D Total PTH Intact Urine pH Urine WBC (Auto) Urine Creatinine Urine Total Protein Fluid Total Protein Vancomycin Trough Rheumatoid Factor Complement C4 Miscellaneous Test Crossmatch 12/11/16 12/11/16 12/11/16 05:38 06:30 06:30 WBC 14.4 H RBC 2.76 L Hgb 7.7 L Hct 23.4 L MCV MCH MCHC RDW 17.2 H Plt Count Lymph % (Auto) [place] % (Auto) 8.8 H Lymph # [place] # 1.3 H Baso # Seg Neutrophils % 72.5 H Seg Neuts % (Manual) Lymphocytes % (Manual) Monocytes % (Manual) Eosinophils % (Manual) Basophils % (Manual) Nucleated RBC % Seg Neutrophils # 10.5 H Seg Neutrophils # Man Lymphocytes # (Manual) Monocytes # (Manual) Eosinophils # (Manual) Basophils # (Manual) PT INR Fibrinogen dRVVT Confirm Interp Factor V Activity POC ABG pH POC ABG pCO2 POC ABG pO2 ABG pO2 ABG HCO3 ABG Base Excess ABG Hemoglobin Oxyhemoglobin Sodium Potassium Chloride Carbon Dioxide BUN 43 H Creatinine Glucose 124 H POC Glucose 141 H Lactic Acid Calcium 8.3 L Ionized Calcium Phosphorus Magnesium 1.60 L Direct Bilirubin AST ALT Alkaline Phosphatase Lactate Dehydrogenase Troponin T C-Reactive Protein Total Protein Albumin Prealbumin Triglycerides Cholesterol LDL Cholesterol Direct HDL Cholesterol 25-OH Vitamin D Total PTH Intact Urine pH Urine WBC (Auto) Urine Creatinine Urine Total Protein Fluid Total Protein Vancomycin Trough Rheumatoid Factor Complement C4 Miscellaneous Test Crossmatch 12/11/16 12/11/16 12/11/16 11:15 17:59 23:48 WBC RBC Hgb Hct MCV MCH MCHC RDW Plt Count Lymph % (Auto) [place] % (Auto) Lymph # [place] # Baso # Seg Neutrophils % Seg Neuts % (Manual) Lymphocytes % (Manual) Monocytes % (Manual) Eosinophils % (Manual) Basophils % (Manual) Nucleated RBC % Seg Neutrophils # Seg Neutrophils # Man Lymphocytes # (Manual) Monocytes # (Manual) Eosinophils # (Manual) Basophils # (Manual) PT INR Fibrinogen dRVVT Confirm Interp Factor V Activity POC ABG pH POC ABG pCO2 POC ABG pO2 ABG pO2 ABG HCO3 ABG Base Excess ABG Hemoglobin Oxyhemoglobin Sodium Potassium Chloride Carbon Dioxide BUN Creatinine Glucose POC Glucose 188 H 106 H 119 H Lactic Acid Calcium Ionized Calcium Phosphorus Magnesium Direct Bilirubin AST ALT Alkaline Phosphatase Lactate Dehydrogenase Troponin T C-Reactive Protein Total Protein Albumin Prealbumin Triglycerides Cholesterol LDL Cholesterol Direct HDL Cholesterol 25-OH Vitamin D Total PTH Intact Urine pH Urine WBC (Auto) Urine Creatinine Urine Total Protein Fluid Total Protein Vancomycin Trough Rheumatoid Factor Complement C4 Miscellaneous Test Crossmatch 12/12/16 12/12/16 12/12/16 05:00 06:01 12:20 WBC 16.7 H RBC 2.87 L Hgb 8.0 L Hct 24.2 L MCV MCH MCHC RDW 17.6 H Plt Count Lymph % (Auto) [place] % (Auto) Lymph # [place] # 1.2 H Baso # Seg Neutrophils % 75.3 H Seg Neuts % (Manual) Lymphocytes % (Manual) Monocytes % (Manual) Eosinophils % (Manual) Basophils % (Manual) Nucleated RBC % Seg Neutrophils # 12.6 H Seg Neutrophils # Man Lymphocytes # (Manual) Monocytes # (Manual) Eosinophils # (Manual) Basophils # (Manual) PT INR Fibrinogen dRVVT Confirm Interp Factor V Activity POC ABG pH POC ABG pCO2 POC ABG pO2 ABG pO2 ABG HCO3 ABG Base Excess ABG Hemoglobin Oxyhemoglobin Sodium Potassium Chloride Carbon Dioxide BUN Creatinine Glucose POC Glucose 134 H 149 H Lactic Acid Calcium Ionized Calcium Phosphorus Magnesium Direct Bilirubin AST ALT Alkaline Phosphatase Lactate Dehydrogenase Troponin T C-Reactive Protein Total Protein Albumin Prealbumin Triglycerides Cholesterol LDL Cholesterol Direct HDL Cholesterol 25-OH Vitamin D Total PTH Intact Urine pH Urine WBC (Auto) Urine Creatinine Urine Total Protein Fluid Total Protein Vancomycin Trough Rheumatoid Factor Complement C4 Miscellaneous Test Crossmatch 12/12/16 12/12/16 12/12/16 17:38 23:01 Unknown WBC RBC Hgb Hct MCV MCH MCHC RDW Plt Count Lymph % (Auto) [place] % (Auto) Lymph # [place] # Baso # Seg Neutrophils % Seg Neuts % (Manual) Lymphocytes % (Manual) Monocytes % (Manual) Eosinophils % (Manual) Basophils % (Manual) Nucleated RBC % Seg Neutrophils # Seg Neutrophils # Man Lymphocytes # (Manual) Monocytes # (Manual) Eosinophils # (Manual) Basophils # (Manual) PT INR Fibrinogen dRVVT Confirm Interp Factor V Activity POC ABG pH POC ABG pCO2 POC ABG pO2 ABG pO2 ABG HCO3 ABG Base Excess ABG Hemoglobin Oxyhemoglobin Sodium Potassium Chloride Carbon Dioxide BUN 60 H Creatinine 1.3 H Glucose 126 H POC Glucose 127 H 144 H Lactic Acid Calcium Ionized Calcium Phosphorus Magnesium Direct Bilirubin AST ALT Alkaline Phosphatase Lactate Dehydrogenase Troponin T C-Reactive Protein Total Protein Albumin Prealbumin Triglycerides Cholesterol LDL Cholesterol Direct HDL Cholesterol 25-OH Vitamin D Total PTH Intact Urine pH Urine WBC (Auto) Urine Creatinine Urine Total Protein Fluid Total Protein Vancomycin Trough Rheumatoid Factor Complement C4 Miscellaneous Test Crossmatch 12/13/16 12/13/16 12/13/16 04:00 04:00 05:19 WBC 18.7 H RBC 2.89 L Hgb 8.3 L Hct 24.6 L MCV MCH MCHC RDW 17.5 H Plt Count Lymph % (Auto) [place] % (Auto) Lymph # [place] # 1.3 H Baso # Seg Neutrophils % 71.5 H Seg Neuts % (Manual) Lymphocytes % (Manual) Monocytes % (Manual) Eosinophils % (Manual) Basophils % (Manual) Nucleated RBC % Seg Neutrophils # 13.4 H Seg Neutrophils # Man Lymphocytes # (Manual) Monocytes # (Manual) Eosinophils # (Manual) Basophils # (Manual) PT INR Fibrinogen dRVVT Confirm Interp Factor V Activity POC ABG pH POC ABG pCO2 POC ABG pO2 ABG pO2 ABG HCO3 ABG Base Excess ABG Hemoglobin Oxyhemoglobin Sodium Potassium Chloride Carbon Dioxide BUN 73 H Creatinine 1.5 H Glucose 141 H POC Glucose 171 H Lactic Acid Calcium Ionized Calcium Phosphorus Magnesium Direct Bilirubin AST ALT Alkaline Phosphatase Lactate Dehydrogenase Troponin T C-Reactive Protein Total Protein Albumin Prealbumin Triglycerides Cholesterol LDL Cholesterol Direct HDL Cholesterol 25-OH Vitamin D Total PTH Intact Urine pH Urine WBC (Auto) Urine Creatinine Urine Total Protein Fluid Total Protein Vancomycin Trough Rheumatoid Factor Complement C4 Miscellaneous Test Crossmatch 12/13/16 12/13/16 12/14/16 12:28 16:48 00:01 WBC RBC Hgb Hct MCV MCH MCHC RDW Plt Count Lymph % (Auto) [place] % (Auto) Lymph # [place] # Baso # Seg Neutrophils % Seg Neuts % (Manual) Lymphocytes % (Manual) Monocytes % (Manual) Eosinophils % (Manual) Basophils % (Manual) Nucleated RBC % Seg Neutrophils # Seg Neutrophils # Man Lymphocytes # (Manual) Monocytes # (Manual) Eosinophils # (Manual) Basophils # (Manual) PT INR Fibrinogen dRVVT Confirm Interp Factor V Activity POC ABG pH POC ABG pCO2 POC ABG pO2 ABG pO2 ABG HCO3 ABG Base Excess ABG Hemoglobin Oxyhemoglobin Sodium Potassium Chloride Carbon Dioxide BUN Creatinine Glucose POC Glucose 206 H 173 H 139 H Lactic Acid Calcium Ionized Calcium Phosphorus Magnesium Direct Bilirubin AST ALT Alkaline Phosphatase Lactate Dehydrogenase Troponin T C-Reactive Protein Total Protein Albumin Prealbumin Triglycerides Cholesterol LDL Cholesterol Direct HDL Cholesterol 25-OH Vitamin D Total PTH Intact Urine pH Urine WBC (Auto) Urine Creatinine Urine Total Protein Fluid Total Protein Vancomycin Trough Rheumatoid Factor Complement C4 Miscellaneous Test Crossmatch 12/14/16 12/14/16 12/14/16 05:16 06:10 11:17 WBC RBC Hgb Hct MCV MCH MCHC RDW Plt Count Lymph % (Auto) [place] % (Auto) Lymph # [place] # Baso # Seg Neutrophils % Seg Neuts % (Manual) Lymphocytes % (Manual) Monocytes % (Manual) Eosinophils % (Manual) Basophils % (Manual) Nucleated RBC % Seg Neutrophils # Seg Neutrophils # Man Lymphocytes # (Manual) Monocytes # (Manual) Eosinophils # (Manual) Basophils # (Manual) PT INR Fibrinogen dRVVT Confirm Interp Factor V Activity POC ABG pH POC ABG pCO2 POC ABG pO2 ABG pO2 ABG HCO3 ABG Base Excess ABG Hemoglobin Oxyhemoglobin Sodium Potassium Chloride Carbon Dioxide BUN 57 H Creatinine 1.4 H Glucose 135 H POC Glucose 158 H 137 H Lactic Acid Calcium Ionized Calcium Phosphorus Magnesium Direct Bilirubin AST ALT Alkaline Phosphatase Lactate Dehydrogenase Troponin T C-Reactive Protein Total Protein Albumin Prealbumin Triglycerides Cholesterol LDL Cholesterol Direct HDL Cholesterol 25-OH Vitamin D Total PTH Intact Urine pH Urine WBC (Auto) Urine Creatinine Urine Total Protein Fluid Total Protein Vancomycin Trough Rheumatoid Factor Complement C4 Miscellaneous Test Crossmatch 12/14/16 12/14/16 12/15/16 17:52 23:27 04:00 WBC RBC Hgb Hct MCV MCH MCHC RDW Plt Count Lymph % (Auto) [place] % (Auto) Lymph # [place] # Baso # Seg Neutrophils % Seg Neuts % (Manual) Lymphocytes % (Manual) Monocytes % (Manual) Eosinophils % (Manual) Basophils % (Manual) Nucleated RBC % Seg Neutrophils # Seg Neutrophils # Man Lymphocytes # (Manual) Monocytes # (Manual) Eosinophils # (Manual) Basophils # (Manual) PT INR Fibrinogen dRVVT Confirm Interp Factor V Activity POC ABG pH POC ABG pCO2 POC ABG pO2 ABG pO2 ABG HCO3 ABG Base Excess ABG Hemoglobin Oxyhemoglobin Sodium Potassium Chloride 97.9 L Carbon Dioxide BUN 75 H Creatinine 1.6 H Glucose 122 H POC Glucose 149 H 163 H Lactic Acid Calcium Ionized Calcium Phosphorus 5.20 H Magnesium Direct Bilirubin AST ALT Alkaline Phosphatase Lactate Dehydrogenase Troponin T C-Reactive Protein Total Protein Albumin Prealbumin Triglycerides Cholesterol LDL Cholesterol Direct HDL Cholesterol 25-OH Vitamin D Total PTH Intact Urine pH Urine WBC (Auto) Urine Creatinine Urine Total Protein Fluid Total Protein Vancomycin Trough Rheumatoid Factor Complement C4 Miscellaneous Test Crossmatch 12/15/16 12/15/16 12/15/16 05:50 11:24 17:01 WBC RBC Hgb Hct MCV MCH MCHC RDW Plt Count Lymph % (Auto) [place] % (Auto) Lymph # [place] # Baso # Seg Neutrophils % Seg Neuts % (Manual) Lymphocytes % (Manual) Monocytes % (Manual) Eosinophils % (Manual) Basophils % (Manual) Nucleated RBC % Seg Neutrophils # Seg Neutrophils # Man Lymphocytes # (Manual) Monocytes # (Manual) Eosinophils # (Manual) Basophils # (Manual) PT INR Fibrinogen dRVVT Confirm Interp Factor V Activity POC ABG pH POC ABG pCO2 POC ABG pO2 ABG pO2 ABG HCO3 ABG Base Excess ABG Hemoglobin Oxyhemoglobin Sodium Potassium Chloride Carbon Dioxide BUN Creatinine Glucose POC Glucose 150 H 146 H 167 H Lactic Acid Calcium Ionized Calcium Phosphorus Magnesium Direct Bilirubin AST ALT Alkaline Phosphatase Lactate Dehydrogenase Troponin T C-Reactive Protein Total Protein Albumin Prealbumin Triglycerides Cholesterol LDL Cholesterol Direct HDL Cholesterol 25-OH Vitamin D Total PTH Intact Urine pH Urine WBC (Auto) Urine Creatinine Urine Total Protein Fluid Total Protein Vancomycin Trough Rheumatoid Factor Complement C4 Miscellaneous Test Crossmatch 12/15/16 12/16/16 12/16/16 23:34 05:25 11:24 WBC RBC Hgb Hct MCV MCH MCHC RDW Plt Count Lymph % (Auto) [place] % (Auto) Lymph # [place] # Baso # Seg Neutrophils % Seg Neuts % (Manual) Lymphocytes % (Manual) Monocytes % (Manual) Eosinophils % (Manual) Basophils % (Manual) Nucleated RBC % Seg Neutrophils # Seg Neutrophils # Man Lymphocytes # (Manual) Monocytes # (Manual) Eosinophils # (Manual) Basophils # (Manual) PT INR Fibrinogen dRVVT Confirm Interp Factor V Activity POC ABG pH POC ABG pCO2 POC ABG pO2 ABG pO2 ABG HCO3 ABG Base Excess ABG Hemoglobin Oxyhemoglobin Sodium Potassium Chloride Carbon Dioxide BUN Creatinine Glucose POC Glucose 127 H 139 H 165 H Lactic Acid Calcium Ionized Calcium Phosphorus Magnesium Direct Bilirubin AST ALT Alkaline Phosphatase Lactate Dehydrogenase Troponin T C-Reactive Protein Total Protein Albumin Prealbumin Triglycerides Cholesterol LDL Cholesterol Direct HDL Cholesterol 25-OH Vitamin D Total PTH Intact Urine pH Urine WBC (Auto) Urine Creatinine Urine Total Protein Fluid Total Protein Vancomycin Trough Rheumatoid Factor Complement C4 Miscellaneous Test Crossmatch 12/16/16 12/16/16 12/16/16 15:30 16:25 17:31 WBC 17.8 H RBC 2.38 L Hgb 6.4 L Hct 20.3 L MCV MCH 27 L MCHC RDW 17.4 H Plt Count Lymph % (Auto) [place] % (Auto) Lymph # [place] # Baso # Seg Neutrophils % Seg Neuts % (Manual) Lymphocytes % (Manual) Monocytes % (Manual) 10.0 H Eosinophils % (Manual) Basophils % (Manual) Nucleated RBC % Seg Neutrophils # Seg Neutrophils # Man 8.5 H Lymphocytes # (Manual) Monocytes # (Manual) 1.8 H Eosinophils # (Manual) Basophils # (Manual) PT INR Fibrinogen dRVVT Confirm Interp Factor V Activity POC ABG pH POC ABG pCO2 POC ABG pO2 ABG pO2 ABG HCO3 ABG Base Excess ABG Hemoglobin Oxyhemoglobin Sodium Potassium Chloride Carbon Dioxide BUN Creatinine Glucose POC Glucose 176 H Lactic Acid Calcium Ionized Calcium Phosphorus Magnesium Direct Bilirubin AST ALT Alkaline Phosphatase Lactate Dehydrogenase Troponin T C-Reactive Protein Total Protein Albumin Prealbumin Triglycerides Cholesterol LDL Cholesterol Direct HDL Cholesterol 25-OH Vitamin D Total PTH Intact Urine pH Urine WBC (Auto) Urine Creatinine Urine Total Protein Fluid Total Protein Vancomycin Trough Rheumatoid Factor Complement C4 Miscellaneous Test Crossmatch See Detail 12/17/16 12/17/16 12/17/16 00:14 04:00 05:00 WBC 20.0 H RBC 2.99 L Hgb 8.5 L Hct 25.7 L MCV MCH MCHC RDW 17.2 H Plt Count Lymph % (Auto) [place] % (Auto) Lymph # [place] # Baso # Seg Neutrophils % Seg Neuts % (Manual) Lymphocytes % (Manual) Monocytes % (Manual) Eosinophils % (Manual) Basophils % (Manual) Nucleated RBC % Seg Neutrophils # Seg Neutrophils # Man Lymphocytes # (Manual) Monocytes # (Manual) Eosinophils # (Manual) Basophils # (Manual) PT INR Fibrinogen dRVVT Confirm Interp Factor V Activity POC ABG pH POC ABG pCO2 POC ABG pO2 ABG pO2 ABG HCO3 ABG Base Excess ABG Hemoglobin Oxyhemoglobin Sodium Potassium Chloride 97.7 L Carbon Dioxide BUN 73 H Creatinine 1.7 H Glucose 136 H POC Glucose 148 H Lactic Acid Calcium Ionized Calcium Phosphorus 2.20 L Magnesium 2.70 H Direct Bilirubin AST ALT Alkaline Phosphatase Lactate Dehydrogenase Troponin T C-Reactive Protein Total Protein Albumin Prealbumin Triglycerides Cholesterol LDL Cholesterol Direct HDL Cholesterol 25-OH Vitamin D Total PTH Intact Urine pH Urine WBC (Auto) Urine Creatinine Urine Total Protein Fluid Total Protein Vancomycin Trough Rheumatoid Factor Complement C4 Miscellaneous Test Crossmatch 12/17/16 12/17/16 12/17/16 05:39 12:50 16:32 WBC RBC Hgb Hct MCV MCH MCHC RDW Plt Count Lymph % (Auto) [place] % (Auto) Lymph # [place] # Baso # Seg Neutrophils % Seg Neuts % (Manual) Lymphocytes % (Manual) Monocytes % (Manual) Eosinophils % (Manual) Basophils % (Manual) Nucleated RBC % Seg Neutrophils # Seg Neutrophils # Man Lymphocytes # (Manual) Monocytes # (Manual) Eosinophils # (Manual) Basophils # (Manual) PT INR Fibrinogen dRVVT Confirm Interp Factor V Activity POC ABG pH POC ABG pCO2 POC ABG pO2 ABG pO2 ABG HCO3 ABG Base Excess ABG Hemoglobin Oxyhemoglobin Sodium Potassium Chloride Carbon Dioxide BUN Creatinine Glucose POC Glucose 162 H 146 H 169 H Lactic Acid Calcium Ionized Calcium Phosphorus Magnesium Direct Bilirubin AST ALT Alkaline Phosphatase Lactate Dehydrogenase Troponin T C-Reactive Protein Total Protein Albumin Prealbumin Triglycerides Cholesterol LDL Cholesterol Direct HDL Cholesterol 25-OH Vitamin D Total PTH Intact Urine pH Urine WBC (Auto) Urine Creatinine Urine Total Protein Fluid Total Protein Vancomycin Trough Rheumatoid Factor Complement C4 Miscellaneous Test Crossmatch 12/17/16 12/18/16 12/18/16 23:57 05:00 05:32 WBC RBC Hgb Hct MCV MCH MCHC RDW Plt Count Lymph % (Auto) [place] % (Auto) Lymph # [place] # Baso # Seg Neutrophils % Seg Neuts % (Manual) Lymphocytes % (Manual) Monocytes % (Manual) Eosinophils % (Manual) Basophils % (Manual) Nucleated RBC % Seg Neutrophils # Seg Neutrophils # Man Lymphocytes # (Manual) Monocytes # (Manual) Eosinophils # (Manual) Basophils # (Manual) PT INR Fibrinogen dRVVT Confirm Interp Factor V Activity POC ABG pH POC ABG pCO2 POC ABG pO2 ABG pO2 ABG HCO3 ABG Base Excess ABG Hemoglobin Oxyhemoglobin Sodium Potassium Chloride 97.0 L Carbon Dioxide BUN 63 H Creatinine 1.4 H Glucose 174 H POC Glucose 145 H 201 H Lactic Acid Calcium Ionized Calcium Phosphorus 1.70 L D Magnesium Direct Bilirubin AST ALT Alkaline Phosphatase 257 H Lactate Dehydrogenase Troponin T C-Reactive Protein Total Protein 5.9 L Albumin 1.8 L Prealbumin Triglycerides Cholesterol LDL Cholesterol Direct HDL Cholesterol 25-OH Vitamin D Total PTH Intact Urine pH Urine WBC (Auto) Urine Creatinine Urine Total Protein Fluid Total Protein Vancomycin Trough Rheumatoid Factor Complement C4 Miscellaneous Test Crossmatch 12/18/16 12/18/16 12/18/16 11:43 16:52 23:52 WBC RBC Hgb Hct MCV MCH MCHC RDW Plt Count Lymph % (Auto) [place] % (Auto) Lymph # [place] # Baso # Seg Neutrophils % Seg Neuts % (Manual) Lymphocytes % (Manual) Monocytes % (Manual) Eosinophils % (Manual) Basophils % (Manual) Nucleated RBC % Seg Neutrophils # Seg Neutrophils # Man Lymphocytes # (Manual) Monocytes # (Manual) Eosinophils # (Manual) Basophils # (Manual) PT INR Fibrinogen dRVVT Confirm Interp Factor V Activity POC ABG pH POC ABG pCO2 POC ABG pO2 ABG pO2 ABG HCO3 ABG Base Excess ABG Hemoglobin Oxyhemoglobin Sodium Potassium Chloride Carbon Dioxide BUN Creatinine Glucose POC Glucose 177 H 110 H 162 H Lactic Acid Calcium Ionized Calcium Phosphorus Magnesium Direct Bilirubin AST ALT Alkaline Phosphatase Lactate Dehydrogenase Troponin T C-Reactive Protein Total Protein Albumin Prealbumin Triglycerides Cholesterol LDL Cholesterol Direct HDL Cholesterol 25-OH Vitamin D Total PTH Intact Urine pH Urine WBC (Auto) Urine Creatinine Urine Total Protein Fluid Total Protein Vancomycin Trough Rheumatoid Factor Complement C4 Miscellaneous Test Crossmatch 12/19/16 12/19/16 12/19/16 05:02 05:24 09:30 WBC 20.1 H RBC 2.73 L Hgb 7.6 L Hct 23.6 L MCV MCH MCHC RDW 17.6 H Plt Count Lymph % (Auto) [place] % (Auto) Lymph # [place] # Baso # Seg Neutrophils % Seg Neuts % (Manual) Lymphocytes % (Manual) 13.0 L Monocytes % (Manual) Eosinophils % (Manual) Basophils % (Manual) Nucleated RBC % 1.0 H Seg Neutrophils # Seg Neutrophils # Man 12.9 H Lymphocytes # (Manual) Monocytes # (Manual) 1.4 H Eosinophils # (Manual) Basophils # (Manual) 0.2 H PT INR Fibrinogen dRVVT Confirm Interp Factor V Activity POC ABG pH POC ABG pCO2 POC ABG pO2 ABG pO2 ABG HCO3 ABG Base Excess ABG Hemoglobin Oxyhemoglobin Sodium Potassium Chloride 97.8 L Carbon Dioxide BUN 84 H Creatinine 1.6 H Glucose 133 H POC Glucose 134 H Lactic Acid Calcium Ionized Calcium Phosphorus Magnesium Direct Bilirubin AST ALT Alkaline Phosphatase Lactate Dehydrogenase Troponin T C-Reactive Protein Total Protein Albumin Prealbumin Triglycerides Cholesterol LDL Cholesterol Direct HDL Cholesterol 25-OH Vitamin D Total PTH Intact Urine pH Urine WBC (Auto) Urine Creatinine Urine Total Protein Fluid Total Protein Vancomycin Trough Rheumatoid Factor Complement C4 Miscellaneous Test Crossmatch 12/19/16 12/19/16 12/19/16 09:36 11:12 18:29 WBC RBC Hgb Hct MCV MCH MCHC RDW Plt Count Lymph % (Auto) [place] % (Auto) Lymph # [place] # Baso # Seg Neutrophils % Seg Neuts % (Manual) Lymphocytes % (Manual) Monocytes % (Manual) Eosinophils % (Manual) Basophils % (Manual) Nucleated RBC % Seg Neutrophils # Seg Neutrophils # Man Lymphocytes # (Manual) Monocytes # (Manual) Eosinophils # (Manual) Basophils # (Manual) PT INR Fibrinogen dRVVT Confirm Interp Factor V Activity POC ABG pH 7.503 H POC ABG pCO2 30.1 L POC ABG pO2 ABG pO2 ABG HCO3 ABG Base Excess ABG Hemoglobin Oxyhemoglobin Sodium Potassium Chloride Carbon Dioxide BUN Creatinine Glucose POC Glucose 138 H 156 H Lactic Acid Calcium Ionized Calcium Phosphorus Magnesium Direct Bilirubin AST ALT Alkaline Phosphatase Lactate Dehydrogenase Troponin T C-Reactive Protein Total Protein Albumin Prealbumin Triglycerides Cholesterol LDL Cholesterol Direct HDL Cholesterol 25-OH Vitamin D Total PTH Intact Urine pH Urine WBC (Auto) Urine Creatinine Urine Total Protein Fluid Total Protein Vancomycin Trough Rheumatoid Factor Complement C4 Miscellaneous Test Crossmatch 12/20/16 12/20/16 12/20/16 00:03 06:17 07:07 WBC RBC Hgb Hct MCV MCH MCHC RDW Plt Count Lymph % (Auto) [place] % (Auto) Lymph # [place] # Baso # Seg Neutrophils % Seg Neuts % (Manual) Lymphocytes % (Manual) Monocytes % (Manual) Eosinophils % (Manual) Basophils % (Manual) Nucleated RBC % Seg Neutrophils # Seg Neutrophils # Man Lymphocytes # (Manual) Monocytes # (Manual) Eosinophils # (Manual) Basophils # (Manual) PT INR Fibrinogen dRVVT Confirm Interp Factor V Activity POC ABG pH POC ABG pCO2 POC ABG pO2 ABG pO2 ABG HCO3 ABG Base Excess ABG Hemoglobin Oxyhemoglobin Sodium Potassium Chloride 97.1 L Carbon Dioxide 20 L BUN 97 H Creatinine 1.8 H Glucose 153 H POC Glucose 152 H 175 H Lactic Acid Calcium Ionized Calcium Phosphorus Magnesium Direct Bilirubin AST ALT Alkaline Phosphatase Lactate Dehydrogenase Troponin T C-Reactive Protein Total Protein Albumin Prealbumin Triglycerides Cholesterol LDL Cholesterol Direct HDL Cholesterol 25-OH Vitamin D Total PTH Intact Urine pH Urine WBC (Auto) Urine Creatinine Urine Total Protein Fluid Total Protein Vancomycin Trough Rheumatoid Factor Complement C4 Miscellaneous Test Crossmatch 12/20/16 12/20/16 12/20/16 12:00 17:42 23:53 WBC RBC Hgb Hct MCV MCH MCHC RDW Plt Count Lymph % (Auto) [place] % (Auto) Lymph # [place] # Baso # Seg Neutrophils % Seg Neuts % (Manual) Lymphocytes % (Manual) Monocytes % (Manual) Eosinophils % (Manual) Basophils % (Manual) Nucleated RBC % Seg Neutrophils # Seg Neutrophils # Man Lymphocytes # (Manual) Monocytes # (Manual) Eosinophils # (Manual) Basophils # (Manual) PT INR Fibrinogen dRVVT Confirm Interp Factor V Activity POC ABG pH POC ABG pCO2 POC ABG pO2 ABG pO2 ABG HCO3 ABG Base Excess ABG Hemoglobin Oxyhemoglobin Sodium Potassium Chloride Carbon Dioxide BUN Creatinine Glucose POC Glucose 141 H 156 H 132 H Lactic Acid Calcium Ionized Calcium Phosphorus Magnesium Direct Bilirubin AST ALT Alkaline Phosphatase Lactate Dehydrogenase Troponin T C-Reactive Protein Total Protein Albumin Prealbumin Triglycerides Cholesterol LDL Cholesterol Direct HDL Cholesterol 25-OH Vitamin D Total PTH Intact Urine pH Urine WBC (Auto) Urine Creatinine Urine Total Protein Fluid Total Protein Vancomycin Trough Rheumatoid Factor Complement C4 Miscellaneous Test Crossmatch 12/21/16 12/21/16 12/21/16 05:49 08:50 12:19 WBC RBC Hgb Hct MCV MCH MCHC RDW Plt Count Lymph % (Auto) [place] % (Auto) Lymph # [place] # Baso # Seg Neutrophils % Seg Neuts % (Manual) Lymphocytes % (Manual) Monocytes % (Manual) Eosinophils % (Manual) Basophils % (Manual) Nucleated RBC % Seg Neutrophils # Seg Neutrophils # Man Lymphocytes # (Manual) Monocytes # (Manual) Eosinophils # (Manual) Basophils # (Manual) PT INR Fibrinogen dRVVT Confirm Interp Factor V Activity POC ABG pH POC ABG pCO2 POC ABG pO2 ABG pO2 ABG HCO3 ABG Base Excess ABG Hemoglobin Oxyhemoglobin Sodium Potassium 5.2 H D Chloride Carbon Dioxide BUN 63 H Creatinine Glucose 122 H POC Glucose 132 H 136 H Lactic Acid Calcium 8.3 L Ionized Calcium Phosphorus Magnesium Direct Bilirubin AST ALT Alkaline Phosphatase Lactate Dehydrogenase Troponin T C-Reactive Protein Total Protein Albumin Prealbumin Triglycerides Cholesterol LDL Cholesterol Direct HDL Cholesterol 25-OH Vitamin D Total PTH Intact Urine pH Urine WBC (Auto) Urine Creatinine Urine Total Protein Fluid Total Protein Vancomycin Trough Rheumatoid Factor Complement C4 Miscellaneous Test Crossmatch 12/21/16 12/21/16 12/22/16 17:22 23:58 05:49 WBC RBC Hgb Hct MCV MCH MCHC RDW Plt Count Lymph % (Auto) [place] % (Auto) Lymph # [place] # Baso # Seg Neutrophils % Seg Neuts % (Manual) Lymphocytes % (Manual) Monocytes % (Manual) Eosinophils % (Manual) Basophils % (Manual) Nucleated RBC % Seg Neutrophils # Seg Neutrophils # Man Lymphocytes # (Manual) Monocytes # (Manual) Eosinophils # (Manual) Basophils # (Manual) PT INR Fibrinogen dRVVT Confirm Interp Factor V Activity POC ABG pH POC ABG pCO2 POC ABG pO2 ABG pO2 ABG HCO3 ABG Base Excess ABG Hemoglobin Oxyhemoglobin Sodium Potassium Chloride Carbon Dioxide BUN Creatinine Glucose POC Glucose 135 H 149 H 140 H Lactic Acid Calcium Ionized Calcium Phosphorus Magnesium Direct Bilirubin AST ALT Alkaline Phosphatase Lactate Dehydrogenase Troponin T C-Reactive Protein Total Protein Albumin Prealbumin Triglycerides Cholesterol LDL Cholesterol Direct HDL Cholesterol 25-OH Vitamin D Total PTH Intact Urine pH Urine WBC (Auto) Urine Creatinine Urine Total Protein Fluid Total Protein Vancomycin Trough Rheumatoid Factor Complement C4 Miscellaneous Test Crossmatch 12/22/16 12/22/16 12/22/16 06:10 11:17 17:31 WBC RBC Hgb Hct MCV MCH MCHC RDW Plt Count Lymph % (Auto) [place] % (Auto) Lymph # [place] # Baso # Seg Neutrophils % Seg Neuts % (Manual) Lymphocytes % (Manual) Monocytes % (Manual) Eosinophils % (Manual) Basophils % (Manual) Nucleated RBC % Seg Neutrophils # Seg Neutrophils # Man Lymphocytes # (Manual) Monocytes # (Manual) Eosinophils # (Manual) Basophils # (Manual) PT INR Fibrinogen dRVVT Confirm Interp Factor V Activity POC ABG pH POC ABG pCO2 POC ABG pO2 ABG pO2 ABG HCO3 ABG Base Excess ABG Hemoglobin Oxyhemoglobin Sodium Potassium Chloride Carbon Dioxide BUN 76 H Creatinine 1.5 H Glucose 241 H POC Glucose 193 H 148 H Lactic Acid Calcium Ionized Calcium Phosphorus Magnesium Direct Bilirubin AST ALT Alkaline Phosphatase Lactate Dehydrogenase Troponin T C-Reactive Protein Total Protein Albumin Prealbumin Triglycerides Cholesterol LDL Cholesterol Direct HDL Cholesterol 25-OH Vitamin D Total PTH Intact Urine pH Urine WBC (Auto) Urine Creatinine Urine Total Protein Fluid Total Protein Vancomycin Trough Rheumatoid Factor Complement C4 Miscellaneous Test Crossmatch 12/22/16 12/23/16 12/23/16 23:58 05:00 05:26 WBC RBC Hgb Hct MCV MCH MCHC RDW Plt Count Lymph % (Auto) [place] % (Auto) Lymph # [place] # Baso # Seg Neutrophils % Seg Neuts % (Manual) Lymphocytes % (Manual) Monocytes % (Manual) Eosinophils % (Manual) Basophils % (Manual) Nucleated RBC % Seg Neutrophils # Seg Neutrophils # Man Lymphocytes # (Manual) Monocytes # (Manual) Eosinophils # (Manual) Basophils # (Manual) PT INR Fibrinogen dRVVT Confirm Interp Factor V Activity POC ABG pH POC ABG pCO2 POC ABG pO2 ABG pO2 ABG HCO3 ABG Base Excess ABG Hemoglobin Oxyhemoglobin Sodium Potassium Chloride Carbon Dioxide BUN 49 H Creatinine Glucose 143 H POC Glucose 165 H 154 H Lactic Acid Calcium 8.2 L Ionized Calcium Phosphorus Magnesium 1.60 L Direct Bilirubin AST ALT Alkaline Phosphatase Lactate Dehydrogenase Troponin T C-Reactive Protein Total Protein Albumin Prealbumin Triglycerides Cholesterol LDL Cholesterol Direct HDL Cholesterol 25-OH Vitamin D Total PTH Intact Urine pH Urine WBC (Auto) Urine Creatinine Urine Total Protein Fluid Total Protein Vancomycin Trough Rheumatoid Factor Complement C4 Miscellaneous Test Crossmatch 12/23/16 12/23/16 12/24/16 12:35 17:01 00:01 WBC RBC Hgb Hct MCV MCH MCHC RDW Plt Count Lymph % (Auto) [place] % (Auto) Lymph # [place] # Baso # Seg Neutrophils % Seg Neuts % (Manual) Lymphocytes % (Manual) Monocytes % (Manual) Eosinophils % (Manual) Basophils % (Manual) Nucleated RBC % Seg Neutrophils # Seg Neutrophils # Man Lymphocytes # (Manual) Monocytes # (Manual) Eosinophils # (Manual) Basophils # (Manual) PT INR Fibrinogen dRVVT Confirm Interp Factor V Activity POC ABG pH POC ABG pCO2 POC ABG pO2 ABG pO2 ABG HCO3 ABG Base Excess ABG Hemoglobin Oxyhemoglobin Sodium Potassium Chloride Carbon Dioxide BUN Creatinine Glucose POC Glucose 164 H 149 H 135 H Lactic Acid Calcium Ionized Calcium Phosphorus Magnesium Direct Bilirubin AST ALT Alkaline Phosphatase Lactate Dehydrogenase Troponin T C-Reactive Protein Total Protein Albumin Prealbumin Triglycerides Cholesterol LDL Cholesterol Direct HDL Cholesterol 25-OH Vitamin D Total PTH Intact Urine pH Urine WBC (Auto) Urine Creatinine Urine Total Protein Fluid Total Protein Vancomycin Trough Rheumatoid Factor Complement C4 Miscellaneous Test Crossmatch 12/24/16 12/24/16 12/24/16 05:41 07:01 11:38 WBC RBC Hgb Hct MCV MCH MCHC RDW Plt Count Lymph % (Auto) [place] % (Auto) Lymph # [place] # Baso # Seg Neutrophils % Seg Neuts % (Manual) Lymphocytes % (Manual) Monocytes % (Manual) Eosinophils % (Manual) Basophils % (Manual) Nucleated RBC % Seg Neutrophils # Seg Neutrophils # Man Lymphocytes # (Manual) Monocytes # (Manual) Eosinophils # (Manual) Basophils # (Manual) PT INR Fibrinogen dRVVT Confirm Interp Factor V Activity POC ABG pH POC ABG pCO2 POC ABG pO2 ABG pO2 ABG HCO3 ABG Base Excess ABG Hemoglobin Oxyhemoglobin Sodium Potassium Chloride Carbon Dioxide BUN 72 H Creatinine 1.3 H Glucose 130 H POC Glucose 132 H 156 H Lactic Acid Calcium 8.2 L Ionized Calcium Phosphorus Magnesium Direct Bilirubin AST ALT Alkaline Phosphatase Lactate Dehydrogenase Troponin T C-Reactive Protein Total Protein Albumin Prealbumin Triglycerides Cholesterol LDL Cholesterol Direct HDL Cholesterol 25-OH Vitamin D Total PTH Intact Urine pH Urine WBC (Auto) Urine Creatinine Urine Total Protein Fluid Total Protein Vancomycin Trough Rheumatoid Factor Complement C4 Miscellaneous Test Crossmatch 12/24/16 12/25/16 12/25/16 17:53 00:23 05:45 WBC RBC Hgb Hct MCV MCH MCHC RDW Plt Count Lymph % (Auto) [place] % (Auto) Lymph # [place] # Baso # Seg Neutrophils % Seg Neuts % (Manual) Lymphocytes % (Manual) Monocytes % (Manual) Eosinophils % (Manual) Basophils % (Manual) Nucleated RBC % Seg Neutrophils # Seg Neutrophils # Man Lymphocytes # (Manual) Monocytes # (Manual) Eosinophils # (Manual) Basophils # (Manual) PT INR Fibrinogen dRVVT Confirm Interp Factor V Activity POC ABG pH POC ABG pCO2 POC ABG pO2 ABG pO2 ABG HCO3 ABG Base Excess ABG Hemoglobin Oxyhemoglobin Sodium 146 H Potassium Chloride Carbon Dioxide BUN 51 H Creatinine Glucose 109 H POC Glucose 169 H 117 H Lactic Acid Calcium Ionized Calcium Phosphorus Magnesium Direct Bilirubin AST ALT Alkaline Phosphatase Lactate Dehydrogenase Troponin T C-Reactive Protein Total Protein Albumin Prealbumin Triglycerides Cholesterol LDL Cholesterol Direct HDL Cholesterol 25-OH Vitamin D Total PTH Intact Urine pH Urine WBC (Auto) Urine Creatinine Urine Total Protein Fluid Total Protein Vancomycin Trough Rheumatoid Factor Complement C4 Miscellaneous Test Crossmatch 12/25/16 12/25/16 12/25/16 06:43 11:29 17:14 WBC RBC Hgb Hct MCV MCH MCHC RDW Plt Count Lymph % (Auto) [place] % (Auto) Lymph # [place] # Baso # Seg Neutrophils % Seg Neuts % (Manual) Lymphocytes % (Manual) Monocytes % (Manual) Eosinophils % (Manual) Basophils % (Manual) Nucleated RBC % Seg Neutrophils # Seg Neutrophils # Man Lymphocytes # (Manual) Monocytes # (Manual) Eosinophils # (Manual) Basophils # (Manual) PT INR Fibrinogen dRVVT Confirm Interp Factor V Activity POC ABG pH POC ABG pCO2 POC ABG pO2 ABG pO2 ABG HCO3 ABG Base Excess ABG Hemoglobin Oxyhemoglobin Sodium Potassium Chloride Carbon Dioxide BUN Creatinine Glucose POC Glucose 117 H 128 H 120 H Lactic Acid Calcium Ionized Calcium Phosphorus Magnesium Direct Bilirubin AST ALT Alkaline Phosphatase Lactate Dehydrogenase Troponin T C-Reactive Protein Total Protein Albumin Prealbumin Triglycerides Cholesterol LDL Cholesterol Direct HDL Cholesterol 25-OH Vitamin D Total PTH Intact Urine pH Urine WBC (Auto) Urine Creatinine Urine Total Protein Fluid Total Protein Vancomycin Trough Rheumatoid Factor Complement C4 Miscellaneous Test Crossmatch 12/25/16 12/26/16 12/26/16 23:54 05:40 05:50 WBC 16.2 H RBC 2.32 L Hgb 6.2 L Hct 20.1 L MCV MCH 27 L MCHC RDW 18.6 H Plt Count Lymph % (Auto) [place] % (Auto) Lymph # [place] # Baso # Seg Neutrophils % Seg Neuts % (Manual) Lymphocytes % (Manual) Monocytes % (Manual) Eosinophils % (Manual) Basophils % (Manual) Nucleated RBC % Seg Neutrophils # Seg Neutrophils # Man Lymphocytes # (Manual) Monocytes # (Manual) Eosinophils # (Manual) Basophils # (Manual) PT INR Fibrinogen dRVVT Confirm Interp Factor V Activity POC ABG pH POC ABG pCO2 POC ABG pO2 ABG pO2 ABG HCO3 ABG Base Excess ABG Hemoglobin Oxyhemoglobin Sodium Potassium Chloride Carbon Dioxide BUN Creatinine Glucose POC Glucose 126 H 132 H Lactic Acid Calcium Ionized Calcium Phosphorus Magnesium Direct Bilirubin AST ALT Alkaline Phosphatase Lactate Dehydrogenase Troponin T C-Reactive Protein Total Protein Albumin Prealbumin Triglycerides Cholesterol LDL Cholesterol Direct HDL Cholesterol 25-OH Vitamin D Total PTH Intact Urine pH Urine WBC (Auto) Urine Creatinine Urine Total Protein Fluid Total Protein Vancomycin Trough Rheumatoid Factor Complement C4 Miscellaneous Test Crossmatch 12/26/16 12/26/16 12/26/16 05:50 12:17 12:33 WBC RBC Hgb Hct MCV MCH MCHC RDW Plt Count Lymph % (Auto) [place] % (Auto) Lymph # [place] # Baso # Seg Neutrophils % Seg Neuts % (Manual) Lymphocytes % (Manual) Monocytes % (Manual) Eosinophils % (Manual) Basophils % (Manual) Nucleated RBC % Seg Neutrophils # Seg Neutrophils # Man Lymphocytes # (Manual) Monocytes # (Manual) Eosinophils # (Manual) Basophils # (Manual) PT INR Fibrinogen dRVVT Confirm Interp Factor V Activity POC ABG pH POC ABG pCO2 POC ABG pO2 ABG pO2 ABG HCO3 ABG Base Excess ABG Hemoglobin Oxyhemoglobin Sodium Potassium Chloride Carbon Dioxide BUN 73 H Creatinine 1.3 H Glucose 113 H POC Glucose 117 H Lactic Acid Calcium Ionized Calcium Phosphorus Magnesium Direct Bilirubin AST ALT Alkaline Phosphatase Lactate Dehydrogenase Troponin T C-Reactive Protein Total Protein Albumin Prealbumin Triglycerides Cholesterol LDL Cholesterol Direct HDL Cholesterol 25-OH Vitamin D Total PTH Intact Urine pH Urine WBC (Auto) Urine Creatinine Urine Total Protein Fluid Total Protein Vancomycin Trough Rheumatoid Factor Complement C4 Miscellaneous Test Crossmatch See Detail 12/26/16 12/26/16 12/27/16 20:00 23:21 05:00 WBC RBC Hgb 8.4 L Hct 26.3 L D MCV MCH MCHC RDW Plt Count Lymph % (Auto) [place] % (Auto) Lymph # [place] # Baso # Seg Neutrophils % Seg Neuts % (Manual) Lymphocytes % (Manual) Monocytes % (Manual) Eosinophils % (Manual) Basophils % (Manual) Nucleated RBC % Seg Neutrophils # Seg Neutrophils # Man Lymphocytes # (Manual) Monocytes # (Manual) Eosinophils # (Manual) Basophils # (Manual) PT INR Fibrinogen dRVVT Confirm Interp Factor V Activity POC ABG pH POC ABG pCO2 POC ABG pO2 ABG pO2 ABG HCO3 ABG Base Excess ABG Hemoglobin Oxyhemoglobin Sodium Potassium Chloride Carbon Dioxide BUN 85 H Creatinine 1.6 H Glucose 118 H POC Glucose 124 H Lactic Acid Calcium Ionized Calcium Phosphorus 4.80 H Magnesium Direct Bilirubin AST ALT Alkaline Phosphatase Lactate Dehydrogenase Troponin T C-Reactive Protein Total Protein Albumin Prealbumin Triglycerides Cholesterol LDL Cholesterol Direct HDL Cholesterol 25-OH Vitamin D Total PTH Intact Urine pH Urine WBC (Auto) Urine Creatinine Urine Total Protein Fluid Total Protein Vancomycin Trough Rheumatoid Factor Complement C4 Miscellaneous Test Crossmatch 12/27/16 12/27/16 12/27/16 05:00 05:35 12:24 WBC RBC Hgb 7.6 L Hct 22.8 L MCV MCH MCHC RDW Plt Count Lymph % (Auto) [place] % (Auto) Lymph # [place] # Baso # Seg Neutrophils % Seg Neuts % (Manual) Lymphocytes % (Manual) Monocytes % (Manual) Eosinophils % (Manual) Basophils % (Manual) Nucleated RBC % Seg Neutrophils # Seg Neutrophils # Man Lymphocytes # (Manual) Monocytes # (Manual) Eosinophils # (Manual) Basophils # (Manual) PT INR Fibrinogen dRVVT Confirm Interp Factor V Activity POC ABG pH POC ABG pCO2 POC ABG pO2 ABG pO2 ABG HCO3 ABG Base Excess ABG Hemoglobin Oxyhemoglobin Sodium Potassium Chloride Carbon Dioxide BUN Creatinine Glucose POC Glucose 115 H 131 H Lactic Acid Calcium Ionized Calcium Phosphorus Magnesium Direct Bilirubin AST ALT Alkaline Phosphatase Lactate Dehydrogenase Troponin T C-Reactive Protein Total Protein Albumin Prealbumin Triglycerides Cholesterol LDL Cholesterol Direct HDL Cholesterol 25-OH Vitamin D Total PTH Intact Urine pH Urine WBC (Auto) Urine Creatinine Urine Total Protein Fluid Total Protein Vancomycin Trough Rheumatoid Factor Complement C4 Miscellaneous Test Crossmatch 12/27/16 12/28/16 12/28/16 17:16 00:18 04:00 WBC RBC Hgb Hct MCV MCH MCHC RDW Plt Count Lymph % (Auto) [place] % (Auto) Lymph # [place] # Baso # Seg Neutrophils % Seg Neuts % (Manual) Lymphocytes % (Manual) Monocytes % (Manual) Eosinophils % (Manual) Basophils % (Manual) Nucleated RBC % Seg Neutrophils # Seg Neutrophils # Man Lymphocytes # (Manual) Monocytes # (Manual) Eosinophils # (Manual) Basophils # (Manual) PT INR Fibrinogen dRVVT Confirm Interp Factor V Activity POC ABG pH POC ABG pCO2 POC ABG pO2 ABG pO2 ABG HCO3 ABG Base Excess ABG Hemoglobin Oxyhemoglobin Sodium Potassium 3.5 L Chloride Carbon Dioxide BUN 57 H Creatinine Glucose 118 H POC Glucose 136 H 120 H Lactic Acid Calcium 8.3 L Ionized Calcium Phosphorus Magnesium Direct Bilirubin AST ALT Alkaline Phosphatase Lactate Dehydrogenase Troponin T C-Reactive Protein Total Protein Albumin Prealbumin Triglycerides Cholesterol LDL Cholesterol Direct HDL Cholesterol 25-OH Vitamin D Total PTH Intact Urine pH Urine WBC (Auto) Urine Creatinine Urine Total Protein Fluid Total Protein Vancomycin Trough Rheumatoid Factor Complement C4 Miscellaneous Test Crossmatch 12/28/16 12/28/16 12/28/16 04:00 05:11 08:30 WBC 17.0 H RBC 2.58 L Hgb 7.1 L Hct 22.0 L MCV MCH MCHC RDW 17.6 H Plt Count Lymph % (Auto) 12.2 L [place] % (Auto) Lymph # [place] # 1.1 H Baso # Seg Neutrophils % 80.5 H Seg Neuts % (Manual) Lymphocytes % (Manual) Monocytes % (Manual) Eosinophils % (Manual) Basophils % (Manual) Nucleated RBC % Seg Neutrophils # 13.7 H Seg Neutrophils # Man Lymphocytes # (Manual) Monocytes # (Manual) Eosinophils # (Manual) Basophils # (Manual) PT 16.1 H INR 1.23 H Fibrinogen dRVVT Confirm Interp Factor V Activity POC ABG pH POC ABG pCO2 POC ABG pO2 ABG pO2 ABG HCO3 ABG Base Excess ABG Hemoglobin Oxyhemoglobin Sodium Potassium Chloride Carbon Dioxide BUN Creatinine Glucose POC Glucose 122 H Lactic Acid Calcium Ionized Calcium Phosphorus Magnesium Direct Bilirubin AST ALT Alkaline Phosphatase Lactate Dehydrogenase Troponin T C-Reactive Protein Total Protein Albumin Prealbumin Triglycerides Cholesterol LDL Cholesterol Direct HDL Cholesterol 25-OH Vitamin D Total PTH Intact Urine pH Urine WBC (Auto) Urine Creatinine Urine Total Protein Fluid Total Protein Vancomycin Trough Rheumatoid Factor Complement C4 Miscellaneous Test Crossmatch 12/28/16 12/28/16 12/28/16 12:27 16:32 23:46 WBC RBC Hgb Hct MCV MCH MCHC RDW Plt Count Lymph % (Auto) [place] % (Auto) Lymph # [place] # Baso # Seg Neutrophils % Seg Neuts % (Manual) Lymphocytes % (Manual) Monocytes % (Manual) Eosinophils % (Manual) Basophils % (Manual) Nucleated RBC % Seg Neutrophils # Seg Neutrophils # Man Lymphocytes # (Manual) Monocytes # (Manual) Eosinophils # (Manual) Basophils # (Manual) PT INR Fibrinogen dRVVT Confirm Interp Factor V Activity POC ABG pH POC ABG pCO2 POC ABG pO2 ABG pO2 ABG HCO3 ABG Base Excess ABG Hemoglobin Oxyhemoglobin Sodium Potassium Chloride Carbon Dioxide BUN Creatinine Glucose POC Glucose 127 H 117 H 108 H Lactic Acid Calcium Ionized Calcium Phosphorus Magnesium Direct Bilirubin AST ALT Alkaline Phosphatase Lactate Dehydrogenase Troponin T C-Reactive Protein Total Protein Albumin Prealbumin Triglycerides Cholesterol LDL Cholesterol Direct HDL Cholesterol 25-OH Vitamin D Total PTH Intact Urine pH Urine WBC (Auto) Urine Creatinine Urine Total Protein Fluid Total Protein Vancomycin Trough Rheumatoid Factor Complement C4 Miscellaneous Test Crossmatch 12/29/16 12/29/16 12/29/16 05:15 05:15 05:32 WBC RBC Hgb Hct MCV MCH MCHC RDW Plt Count Lymph % (Auto) [place] % (Auto) Lymph # [place] # Baso # Seg Neutrophils % Seg Neuts % (Manual) Lymphocytes % (Manual) Monocytes % (Manual) Eosinophils % (Manual) Basophils % (Manual) Nucleated RBC % Seg Neutrophils # Seg Neutrophils # Man Lymphocytes # (Manual) Monocytes # (Manual) Eosinophils # (Manual) Basophils # (Manual) PT INR Fibrinogen dRVVT Confirm Interp Factor V Activity POC ABG pH POC ABG pCO2 POC ABG pO2 ABG pO2 ABG HCO3 ABG Base Excess ABG Hemoglobin Oxyhemoglobin Sodium Potassium Chloride Carbon Dioxide BUN 74 H Creatinine 1.6 H Glucose 111 H POC Glucose 123 H Lactic Acid Calcium Ionized Calcium Phosphorus Magnesium Direct Bilirubin AST ALT Alkaline Phosphatase Lactate Dehydrogenase Troponin T C-Reactive Protein Total Protein Albumin Prealbumin 0.110 L Triglycerides Cholesterol LDL Cholesterol Direct HDL Cholesterol 25-OH Vitamin D Total PTH Intact Urine pH Urine WBC (Auto) Urine Creatinine Urine Total Protein Fluid Total Protein Vancomycin Trough Rheumatoid Factor Complement C4 Miscellaneous Test Crossmatch 12/29/16 12/29/16 12/29/16 11:43 13:45 14:00 WBC 13.8 H RBC 2.26 L Hgb 6.3 L Hct 20.4 L MCV MCH MCHC RDW 18.3 H Plt Count Lymph % (Auto) [place] % (Auto) Lymph # [place] # 0.9 H Baso # Seg Neutrophils % 78.6 H Seg Neuts % (Manual) Lymphocytes % (Manual) Monocytes % (Manual) Eosinophils % (Manual) Basophils % (Manual) Nucleated RBC % Seg Neutrophils # 10.8 H Seg Neutrophils # Man Lymphocytes # (Manual) Monocytes # (Manual) Eosinophils # (Manual) Basophils # (Manual) PT INR Fibrinogen dRVVT Confirm Interp Factor V Activity POC ABG pH POC ABG pCO2 POC ABG pO2 ABG pO2 ABG HCO3 ABG Base Excess ABG Hemoglobin Oxyhemoglobin Sodium Potassium Chloride Carbon Dioxide BUN Creatinine Glucose POC Glucose 133 H Lactic Acid Calcium Ionized Calcium Phosphorus Magnesium Direct Bilirubin AST ALT Alkaline Phosphatase Lactate Dehydrogenase Troponin T C-Reactive Protein Total Protein Albumin Prealbumin Triglycerides Cholesterol LDL Cholesterol Direct HDL Cholesterol 25-OH Vitamin D Total PTH Intact Urine pH Urine WBC (Auto) Urine Creatinine Urine Total Protein Fluid Total Protein Vancomycin Trough Rheumatoid Factor Complement C4 Miscellaneous Test Crossmatch See Detail 12/29/16 12/29/16 12/29/16 17:03 23:15 23:22 WBC RBC Hgb 7.3 L Hct 22.3 L MCV MCH MCHC RDW Plt Count Lymph % (Auto) [place] % (Auto) Lymph # [place] # Baso # Seg Neutrophils % Seg Neuts % (Manual) Lymphocytes % (Manual) Monocytes % (Manual) Eosinophils % (Manual) Basophils % (Manual) Nucleated RBC % Seg Neutrophils # Seg Neutrophils # Man Lymphocytes # (Manual) Monocytes # (Manual) Eosinophils # (Manual) Basophils # (Manual) PT INR Fibrinogen dRVVT Confirm Interp Factor V Activity POC ABG pH POC ABG pCO2 POC ABG pO2 ABG pO2 ABG HCO3 ABG Base Excess ABG Hemoglobin Oxyhemoglobin Sodium Potassium Chloride Carbon Dioxide BUN Creatinine Glucose POC Glucose 139 H 120 H Lactic Acid Calcium Ionized Calcium Phosphorus Magnesium Direct Bilirubin AST ALT Alkaline Phosphatase Lactate Dehydrogenase Troponin T C-Reactive Protein Total Protein Albumin Prealbumin Triglycerides Cholesterol LDL Cholesterol Direct HDL Cholesterol 25-OH Vitamin D Total PTH Intact Urine pH Urine WBC (Auto) Urine Creatinine Urine Total Protein Fluid Total Protein Vancomycin Trough Rheumatoid Factor Complement C4 Miscellaneous Test Crossmatch 12/30/16 12/30/16 12/30/16 04:20 04:20 05:43 WBC 15.6 H RBC 2.81 L Hgb 8.0 L Hct 24.0 L MCV MCH MCHC RDW 16.9 H Plt Count Lymph % (Auto) [place] % (Auto) Lymph # [place] # 1.0 H Baso # Seg Neutrophils % 76.2 H Seg Neuts % (Manual) Lymphocytes % (Manual) Monocytes % (Manual) Eosinophils % (Manual) Basophils % (Manual) Nucleated RBC % Seg Neutrophils # 11.9 H Seg Neutrophils # Man Lymphocytes # (Manual) Monocytes # (Manual) Eosinophils # (Manual) Basophils # (Manual) PT INR Fibrinogen dRVVT Confirm Interp Factor V Activity POC ABG pH POC ABG pCO2 POC ABG pO2 ABG pO2 ABG HCO3 ABG Base Excess ABG Hemoglobin Oxyhemoglobin Sodium Potassium Chloride Carbon Dioxide BUN 87 H Creatinine 1.8 H Glucose 119 H POC Glucose 115 H Lactic Acid Calcium Ionized Calcium Phosphorus Magnesium Direct Bilirubin AST ALT Alkaline Phosphatase Lactate Dehydrogenase Troponin T C-Reactive Protein Total Protein Albumin Prealbumin Triglycerides Cholesterol LDL Cholesterol Direct HDL Cholesterol 25-OH Vitamin D Total PTH Intact Urine pH Urine WBC (Auto) Urine Creatinine Urine Total Protein Fluid Total Protein Vancomycin Trough Rheumatoid Factor Complement C4 Miscellaneous Test Crossmatch 12/30/16 12/30/16 12/31/16 17:27 23:21 04:00 WBC RBC Hgb Hct MCV MCH MCHC RDW Plt Count Lymph % (Auto) [place] % (Auto) Lymph # [place] # Baso # Seg Neutrophils % Seg Neuts % (Manual) Lymphocytes % (Manual) Monocytes % (Manual) Eosinophils % (Manual) Basophils % (Manual) Nucleated RBC % Seg Neutrophils # Seg Neutrophils # Man Lymphocytes # (Manual) Monocytes # (Manual) Eosinophils # (Manual) Basophils # (Manual) PT INR Fibrinogen dRVVT Confirm Interp Factor V Activity POC ABG pH POC ABG pCO2 POC ABG pO2 ABG pO2 ABG HCO3 ABG Base Excess ABG Hemoglobin Oxyhemoglobin Sodium Potassium Chloride Carbon Dioxide BUN 59 H Creatinine Glucose 298 H POC Glucose 144 H 125 H Lactic Acid Calcium Ionized Calcium Phosphorus Magnesium Direct Bilirubin AST ALT Alkaline Phosphatase Lactate Dehydrogenase Troponin T C-Reactive Protein Total Protein Albumin Prealbumin Triglycerides Cholesterol LDL Cholesterol Direct HDL Cholesterol 25-OH Vitamin D Total PTH Intact Urine pH Urine WBC (Auto) Urine Creatinine Urine Total Protein Fluid Total Protein Vancomycin Trough Rheumatoid Factor Complement C4 Miscellaneous Test Crossmatch 12/31/16 12/31/16 12/31/16 05:11 12:18 18:17 WBC RBC Hgb Hct MCV MCH MCHC RDW Plt Count Lymph % (Auto) [place] % (Auto) Lymph # [place] # Baso # Seg Neutrophils % Seg Neuts % (Manual) Lymphocytes % (Manual) Monocytes % (Manual) Eosinophils % (Manual) Basophils % (Manual) Nucleated RBC % Seg Neutrophils # Seg Neutrophils # Man Lymphocytes # (Manual) Monocytes # (Manual) Eosinophils # (Manual) Basophils # (Manual) PT INR Fibrinogen dRVVT Confirm Interp Factor V Activity POC ABG pH POC ABG pCO2 POC ABG pO2 ABG pO2 ABG HCO3 ABG Base Excess ABG Hemoglobin Oxyhemoglobin Sodium Potassium Chloride Carbon Dioxide BUN Creatinine Glucose POC Glucose 167 H 125 H 133 H Lactic Acid Calcium Ionized Calcium Phosphorus Magnesium Direct Bilirubin AST ALT Alkaline Phosphatase Lactate Dehydrogenase Troponin T C-Reactive Protein Total Protein Albumin Prealbumin Triglycerides Cholesterol LDL Cholesterol Direct HDL Cholesterol 25-OH Vitamin D Total PTH Intact Urine pH Urine WBC (Auto) Urine Creatinine Urine Total Protein Fluid Total Protein Vancomycin Trough Rheumatoid Factor Complement C4 Miscellaneous Test Crossmatch 12/31/16 01/01/17 01/01/17 23:55 05:00 05:12 WBC RBC Hgb Hct MCV MCH MCHC RDW Plt Count Lymph % (Auto) [place] % (Auto) Lymph # [place] # Baso # Seg Neutrophils % Seg Neuts % (Manual) Lymphocytes % (Manual) Monocytes % (Manual) Eosinophils % (Manual) Basophils % (Manual) Nucleated RBC % Seg Neutrophils # Seg Neutrophils # Man Lymphocytes # (Manual) Monocytes # (Manual) Eosinophils # (Manual) Basophils # (Manual) PT INR Fibrinogen dRVVT Confirm Interp Factor V Activity POC ABG pH POC ABG pCO2 POC ABG pO2 ABG pO2 ABG HCO3 ABG Base Excess ABG Hemoglobin Oxyhemoglobin Sodium Potassium Chloride Carbon Dioxide BUN 76 H Creatinine 1.5 H Glucose 109 H POC Glucose 129 H 129 H Lactic Acid Calcium Ionized Calcium Phosphorus Magnesium Direct Bilirubin AST ALT Alkaline Phosphatase 536 H Lactate Dehydrogenase Troponin T C-Reactive Protein Total Protein Albumin 1.5 L Prealbumin Triglycerides Cholesterol LDL Cholesterol Direct HDL Cholesterol 25-OH Vitamin D Total PTH Intact Urine pH Urine WBC (Auto) Urine Creatinine Urine Total Protein Fluid Total Protein Vancomycin Trough Rheumatoid Factor Complement C4 Miscellaneous Test Crossmatch 01/01/17 01/01/17 01/01/17 12:25 17:01 23:32 WBC RBC Hgb Hct MCV MCH MCHC RDW Plt Count Lymph % (Auto) [place] % (Auto) Lymph # [place] # Baso # Seg Neutrophils % Seg Neuts % (Manual) Lymphocytes % (Manual) Monocytes % (Manual) Eosinophils % (Manual) Basophils % (Manual) Nucleated RBC % Seg Neutrophils # Seg Neutrophils # Man Lymphocytes # (Manual) Monocytes # (Manual) Eosinophils # (Manual) Basophils # (Manual) PT INR Fibrinogen dRVVT Confirm Interp Factor V Activity POC ABG pH POC ABG pCO2 POC ABG pO2 ABG pO2 ABG HCO3 ABG Base Excess ABG Hemoglobin Oxyhemoglobin Sodium Potassium Chloride Carbon Dioxide BUN Creatinine Glucose POC Glucose 140 H 142 H 112 H Lactic Acid Calcium Ionized Calcium Phosphorus Magnesium Direct Bilirubin AST ALT Alkaline Phosphatase Lactate Dehydrogenase Troponin T C-Reactive Protein Total Protein Albumin Prealbumin Triglycerides Cholesterol LDL Cholesterol Direct HDL Cholesterol 25-OH Vitamin D Total PTH Intact Urine pH Urine WBC (Auto) Urine Creatinine Urine Total Protein Fluid Total Protein Vancomycin Trough Rheumatoid Factor Complement C4 Miscellaneous Test Crossmatch 01/02/17 01/02/17 01/02/17 04:56 06:00 11:37 WBC RBC Hgb Hct MCV MCH MCHC RDW Plt Count Lymph % (Auto) [place] % (Auto) Lymph # [place] # Baso # Seg Neutrophils % Seg Neuts % (Manual) Lymphocytes % (Manual) Monocytes % (Manual) Eosinophils % (Manual) Basophils % (Manual) Nucleated RBC % Seg Neutrophils # Seg Neutrophils # Man Lymphocytes # (Manual) Monocytes # (Manual) Eosinophils # (Manual) Basophils # (Manual) PT INR Fibrinogen dRVVT Confirm Interp Factor V Activity POC ABG pH POC ABG pCO2 POC ABG pO2 ABG pO2 ABG HCO3 ABG Base Excess ABG Hemoglobin Oxyhemoglobin Sodium Potassium Chloride Carbon Dioxide BUN 88 H Creatinine 1.7 H Glucose 113 H POC Glucose 136 H 200 H Lactic Acid Calcium Ionized Calcium Phosphorus Magnesium Direct Bilirubin AST ALT Alkaline Phosphatase Lactate Dehydrogenase Troponin T C-Reactive Protein Total Protein Albumin Prealbumin Triglycerides Cholesterol LDL Cholesterol Direct HDL Cholesterol 25-OH Vitamin D Total PTH Intact Urine pH Urine WBC (Auto) Urine Creatinine Urine Total Protein Fluid Total Protein Vancomycin Trough Rheumatoid Factor Complement C4 Miscellaneous Test Crossmatch 01/02/17 01/02/17 01/03/17 17:42 22:52 04:54 WBC RBC Hgb Hct MCV MCH MCHC RDW Plt Count Lymph % (Auto) [place] % (Auto) Lymph # [place] # Baso # Seg Neutrophils % Seg Neuts % (Manual) Lymphocytes % (Manual) Monocytes % (Manual) Eosinophils % (Manual) Basophils % (Manual) Nucleated RBC % Seg Neutrophils # Seg Neutrophils # Man Lymphocytes # (Manual) Monocytes # (Manual) Eosinophils # (Manual) Basophils # (Manual) PT INR Fibrinogen dRVVT Confirm Interp Factor V Activity POC ABG pH POC ABG pCO2 POC ABG pO2 ABG pO2 ABG HCO3 ABG Base Excess ABG Hemoglobin Oxyhemoglobin Sodium Potassium Chloride Carbon Dioxide BUN Creatinine Glucose POC Glucose 112 H 133 H 111 H Lactic Acid Calcium Ionized Calcium Phosphorus Magnesium Direct Bilirubin AST ALT Alkaline Phosphatase Lactate Dehydrogenase Troponin T C-Reactive Protein Total Protein Albumin Prealbumin Triglycerides Cholesterol LDL Cholesterol Direct HDL Cholesterol 25-OH Vitamin D Total PTH Intact Urine pH Urine WBC (Auto) Urine Creatinine Urine Total Protein Fluid Total Protein Vancomycin Trough Rheumatoid Factor Complement C4 Miscellaneous Test Crossmatch 01/03/17 01/03/17 01/03/17 05:00 05:00 14:02 WBC 11.2 H RBC 2.56 L Hgb 7.2 L Hct 22.3 L MCV MCH MCHC RDW 17.3 H Plt Count Lymph % (Auto) [place] % (Auto) 10.0 H Lymph # [place] # 1.1 H Baso # Seg Neutrophils % 70.5 H Seg Neuts % (Manual) Lymphocytes % (Manual) Monocytes % (Manual) Eosinophils % (Manual) Basophils % (Manual) Nucleated RBC % Seg Neutrophils # 7.9 H Seg Neutrophils # Man Lymphocytes # (Manual) Monocytes # (Manual) Eosinophils # (Manual) Basophils # (Manual) PT INR Fibrinogen dRVVT Confirm Interp Factor V Activity POC ABG pH POC ABG pCO2 POC ABG pO2 ABG pO2 ABG HCO3 ABG Base Excess ABG Hemoglobin Oxyhemoglobin Sodium Potassium Chloride Carbon Dioxide BUN 60 H Creatinine 1.3 H Glucose 110 H POC Glucose 119 H Lactic Acid Calcium Ionized Calcium Phosphorus Magnesium Direct Bilirubin AST ALT Alkaline Phosphatase Lactate Dehydrogenase Troponin T C-Reactive Protein Total Protein Albumin Prealbumin Triglycerides Cholesterol LDL Cholesterol Direct HDL Cholesterol 25-OH Vitamin D Total PTH Intact Urine pH Urine WBC (Auto) Urine Creatinine Urine Total Protein Fluid Total Protein Vancomycin Trough Rheumatoid Factor Complement C4 Miscellaneous Test Crossmatch 01/03/17 01/03/17 01/04/17 18:13 23:40 05:57 WBC RBC Hgb Hct MCV MCH MCHC RDW Plt Count Lymph % (Auto) [place] % (Auto) Lymph # [place] # Baso # Seg Neutrophils % Seg Neuts % (Manual) Lymphocytes % (Manual) Monocytes % (Manual) Eosinophils % (Manual) Basophils % (Manual) Nucleated RBC % Seg Neutrophils # Seg Neutrophils # Man Lymphocytes # (Manual) Monocytes # (Manual) Eosinophils # (Manual) Basophils # (Manual) PT INR Fibrinogen dRVVT Confirm Interp Factor V Activity POC ABG pH POC ABG pCO2 POC ABG pO2 ABG pO2 ABG HCO3 ABG Base Excess ABG Hemoglobin Oxyhemoglobin Sodium Potassium Chloride Carbon Dioxide BUN Creatinine Glucose POC Glucose 107 H 129 H 111 H Lactic Acid Calcium Ionized Calcium Phosphorus Magnesium Direct Bilirubin AST ALT Alkaline Phosphatase Lactate Dehydrogenase Troponin T C-Reactive Protein Total Protein Albumin Prealbumin Triglycerides Cholesterol LDL Cholesterol Direct HDL Cholesterol 25-OH Vitamin D Total PTH Intact Urine pH Urine WBC (Auto) Urine Creatinine Urine Total Protein Fluid Total Protein Vancomycin Trough Rheumatoid Factor Complement C4 Miscellaneous Test Crossmatch 01/04/17 01/04/17 01/04/17 12:46 15:27 17:11 WBC RBC Hgb Hct MCV MCH MCHC RDW Plt Count Lymph % (Auto) [place] % (Auto) Lymph # [place] # Baso # Seg Neutrophils % Seg Neuts % (Manual) Lymphocytes % (Manual) Monocytes % (Manual) Eosinophils % (Manual) Basophils % (Manual) Nucleated RBC % Seg Neutrophils # Seg Neutrophils # Man Lymphocytes # (Manual) Monocytes # (Manual) Eosinophils # (Manual) Basophils # (Manual) PT INR Fibrinogen dRVVT Confirm Interp Factor V Activity POC ABG pH POC ABG pCO2 POC ABG pO2 ABG pO2 ABG HCO3 ABG Base Excess ABG Hemoglobin Oxyhemoglobin Sodium Potassium Chloride Carbon Dioxide BUN 43 H Creatinine Glucose 124 H POC Glucose 159 H 125 H Lactic Acid Calcium 8.0 L Ionized Calcium Phosphorus 2.10 L Magnesium Direct Bilirubin AST ALT Alkaline Phosphatase Lactate Dehydrogenase Troponin T C-Reactive Protein Total Protein Albumin Prealbumin Triglycerides Cholesterol LDL Cholesterol Direct HDL Cholesterol 25-OH Vitamin D Total PTH Intact Urine pH Urine WBC (Auto) Urine Creatinine Urine Total Protein Fluid Total Protein Vancomycin Trough Rheumatoid Factor Complement C4 Miscellaneous Test Crossmatch 01/04/17 01/05/17 01/05/17 23:31 04:00 05:46 WBC RBC Hgb Hct MCV MCH MCHC RDW Plt Count Lymph % (Auto) [place] % (Auto) Lymph # [place] # Baso # Seg Neutrophils % Seg Neuts % (Manual) Lymphocytes % (Manual) Monocytes % (Manual) Eosinophils % (Manual) Basophils % (Manual) Nucleated RBC % Seg Neutrophils # Seg Neutrophils # Man Lymphocytes # (Manual) Monocytes # (Manual) Eosinophils # (Manual) Basophils # (Manual) PT INR Fibrinogen dRVVT Confirm Interp Factor V Activity POC ABG pH POC ABG pCO2 POC ABG pO2 ABG pO2 ABG HCO3 ABG Base Excess ABG Hemoglobin Oxyhemoglobin Sodium Potassium Chloride Carbon Dioxide BUN 52 H Creatinine 1.3 H Glucose 113 H POC Glucose 123 H 118 H Lactic Acid Calcium Ionized Calcium Phosphorus 2.40 L Magnesium Direct Bilirubin AST ALT Alkaline Phosphatase Lactate Dehydrogenase Troponin T C-Reactive Protein Total Protein Albumin Prealbumin Triglycerides Cholesterol LDL Cholesterol Direct HDL Cholesterol 25-OH Vitamin D Total PTH Intact Urine pH Urine WBC (Auto) Urine Creatinine Urine Total Protein Fluid Total Protein Vancomycin Trough Rheumatoid Factor Complement C4 Miscellaneous Test Crossmatch 01/05/17 01/05/17 01/05/17 11:41 17:48 23:27 WBC RBC Hgb Hct MCV MCH MCHC RDW Plt Count Lymph % (Auto) [place] % (Auto) Lymph # [place] # Baso # Seg Neutrophils % Seg Neuts % (Manual) Lymphocytes % (Manual) Monocytes % (Manual) Eosinophils % (Manual) Basophils % (Manual) Nucleated RBC % Seg Neutrophils # Seg Neutrophils # Man Lymphocytes # (Manual) Monocytes # (Manual) Eosinophils # (Manual) Basophils # (Manual) PT INR Fibrinogen dRVVT Confirm Interp Factor V Activity POC ABG pH POC ABG pCO2 POC ABG pO2 ABG pO2 ABG HCO3 ABG Base Excess ABG Hemoglobin Oxyhemoglobin Sodium Potassium Chloride Carbon Dioxide BUN Creatinine Glucose POC Glucose 163 H 142 H 155 H Lactic Acid Calcium Ionized Calcium Phosphorus Magnesium Direct Bilirubin AST ALT Alkaline Phosphatase Lactate Dehydrogenase Troponin T C-Reactive Protein Total Protein Albumin Prealbumin Triglycerides Cholesterol LDL Cholesterol Direct HDL Cholesterol 25-OH Vitamin D Total PTH Intact Urine pH Urine WBC (Auto) Urine Creatinine Urine Total Protein Fluid Total Protein Vancomycin Trough Rheumatoid Factor Complement C4 Miscellaneous Test Crossmatch 01/06/17 01/06/17 01/06/17 05:20 07:35 11:18 WBC RBC Hgb Hct MCV MCH MCHC RDW Plt Count Lymph % (Auto) [place] % (Auto) Lymph # [place] # Baso # Seg Neutrophils % Seg Neuts % (Manual) Lymphocytes % (Manual) Monocytes % (Manual) Eosinophils % (Manual) Basophils % (Manual) Nucleated RBC % Seg Neutrophils # Seg Neutrophils # Man Lymphocytes # (Manual) Monocytes # (Manual) Eosinophils # (Manual) Basophils # (Manual) PT INR Fibrinogen dRVVT Confirm Interp Factor V Activity POC ABG pH POC ABG pCO2 POC ABG pO2 ABG pO2 ABG HCO3 ABG Base Excess ABG Hemoglobin Oxyhemoglobin Sodium Potassium Chloride Carbon Dioxide BUN 74 H Creatinine 1.6 H Glucose 135 H POC Glucose 108 H 149 H Lactic Acid Calcium Ionized Calcium Phosphorus Magnesium Direct Bilirubin AST ALT Alkaline Phosphatase Lactate Dehydrogenase Troponin T C-Reactive Protein Total Protein Albumin Prealbumin Triglycerides Cholesterol LDL Cholesterol Direct HDL Cholesterol 25-OH Vitamin D Total PTH Intact Urine pH Urine WBC (Auto) Urine Creatinine Urine Total Protein Fluid Total Protein Vancomycin Trough Rheumatoid Factor Complement C4 Miscellaneous Test Crossmatch 01/06/17 01/07/17 01/07/17 17:17 00:23 05:31 WBC RBC Hgb Hct MCV MCH MCHC RDW Plt Count Lymph % (Auto) [place] % (Auto) Lymph # [place] # Baso # Seg Neutrophils % Seg Neuts % (Manual) Lymphocytes % (Manual) Monocytes % (Manual) Eosinophils % (Manual) Basophils % (Manual) Nucleated RBC % Seg Neutrophils # Seg Neutrophils # Man Lymphocytes # (Manual) Monocytes # (Manual) Eosinophils # (Manual) Basophils # (Manual) PT INR Fibrinogen dRVVT Confirm Interp Factor V Activity POC ABG pH POC ABG pCO2 POC ABG pO2 ABG pO2 ABG HCO3 ABG Base Excess ABG Hemoglobin Oxyhemoglobin Sodium Potassium Chloride Carbon Dioxide BUN Creatinine Glucose POC Glucose 146 H 165 H 153 H Lactic Acid Calcium Ionized Calcium Phosphorus Magnesium Direct Bilirubin AST ALT Alkaline Phosphatase Lactate Dehydrogenase Troponin T C-Reactive Protein Total Protein Albumin Prealbumin Triglycerides Cholesterol LDL Cholesterol Direct HDL Cholesterol 25-OH Vitamin D Total PTH Intact Urine pH Urine WBC (Auto) Urine Creatinine Urine Total Protein Fluid Total Protein Vancomycin Trough Rheumatoid Factor Complement C4 Miscellaneous Test Crossmatch 01/07/17 01/07/17 01/07/17 06:00 11:39 17:11 WBC RBC Hgb Hct MCV MCH MCHC RDW Plt Count Lymph % (Auto) [place] % (Auto) Lymph # [place] # Baso # Seg Neutrophils % Seg Neuts % (Manual) Lymphocytes % (Manual) Monocytes % (Manual) Eosinophils % (Manual) Basophils % (Manual) Nucleated RBC % Seg Neutrophils # Seg Neutrophils # Man Lymphocytes # (Manual) Monocytes # (Manual) Eosinophils # (Manual) Basophils # (Manual) PT INR Fibrinogen dRVVT Confirm Interp Factor V Activity POC ABG pH POC ABG pCO2 POC ABG pO2 ABG pO2 ABG HCO3 ABG Base Excess ABG Hemoglobin Oxyhemoglobin Sodium Potassium Chloride Carbon Dioxide BUN 42 H Creatinine Glucose 175 H POC Glucose 163 H 163 H Lactic Acid Calcium Ionized Calcium Phosphorus 2.40 L D Magnesium Direct Bilirubin AST ALT Alkaline Phosphatase Lactate Dehydrogenase Troponin T C-Reactive Protein Total Protein Albumin Prealbumin Triglycerides Cholesterol LDL Cholesterol Direct HDL Cholesterol 25-OH Vitamin D Total PTH Intact Urine pH Urine WBC (Auto) Urine Creatinine Urine Total Protein Fluid Total Protein Vancomycin Trough Rheumatoid Factor Complement C4 Miscellaneous Test Crossmatch 01/07/17 01/08/17 01/08/17 23:40 05:00 05:00 WBC 27.4 H RBC 2.27 L Hgb 6.1 L Hct 20.4 L MCV MCH 27 L MCHC RDW 17.8 H Plt Count Lymph % (Auto) [place] % (Auto) Lymph # [place] # Baso # Seg Neutrophils % Seg Neuts % (Manual) Lymphocytes % (Manual) Monocytes % (Manual) Eosinophils % (Manual) Basophils % (Manual) Nucleated RBC % Seg Neutrophils # Seg Neutrophils # Man Lymphocytes # (Manual) Monocytes # (Manual) Eosinophils # (Manual) Basophils # (Manual) PT INR Fibrinogen dRVVT Confirm Interp Factor V Activity POC ABG pH POC ABG pCO2 POC ABG pO2 ABG pO2 ABG HCO3 ABG Base Excess ABG Hemoglobin Oxyhemoglobin Sodium Potassium Chloride Carbon Dioxide 16 L D BUN 62 H Creatinine 1.6 H D Glucose 103 H POC Glucose 135 H Lactic Acid Calcium Ionized Calcium Phosphorus Magnesium Direct Bilirubin AST ALT Alkaline Phosphatase Lactate Dehydrogenase Troponin T C-Reactive Protein Total Protein Albumin Prealbumin Triglycerides Cholesterol LDL Cholesterol Direct HDL Cholesterol 25-OH Vitamin D Total PTH Intact Urine pH Urine WBC (Auto) Urine Creatinine Urine Total Protein Fluid Total Protein Vancomycin Trough Rheumatoid Factor Complement C4 Miscellaneous Test Crossmatch 01/08/17 01/08/17 01/08/17 05:25 10:37 10:37 WBC RBC Hgb Hct MCV MCH MCHC RDW Plt Count Lymph % (Auto) [place] % (Auto) Lymph # [place] # Baso # Seg Neutrophils % Seg Neuts % (Manual) Lymphocytes % (Manual) Monocytes % (Manual) Eosinophils % (Manual) Basophils % (Manual) Nucleated RBC % Seg Neutrophils # Seg Neutrophils # Man Lymphocytes # (Manual) Monocytes # (Manual) Eosinophils # (Manual) Basophils # (Manual) PT INR Fibrinogen dRVVT Confirm Interp Factor V Activity POC ABG pH POC ABG pCO2 POC ABG pO2 ABG pO2 ABG HCO3 ABG Base Excess ABG Hemoglobin Oxyhemoglobin Sodium Potassium Chloride Carbon Dioxide BUN Creatinine Glucose POC Glucose 106 H Lactic Acid Calcium Ionized Calcium Phosphorus Magnesium Direct Bilirubin AST ALT Alkaline Phosphatase Lactate Dehydrogenase Troponin T C-Reactive Protein 24.40 H Total Protein Albumin Prealbumin Triglycerides Cholesterol LDL Cholesterol Direct HDL Cholesterol 25-OH Vitamin D Total PTH Intact Urine pH Urine WBC (Auto) Urine Creatinine Urine Total Protein Fluid Total Protein Vancomycin Trough Rheumatoid Factor Complement C4 Miscellaneous Test Crossmatch See Detail 01/08/17 01/08/17 01/08/17 10:37 11:33 15:15 WBC RBC Hgb Hct MCV MCH MCHC RDW Plt Count Lymph % (Auto) [place] % (Auto) Lymph # [place] # Baso # Seg Neutrophils % Seg Neuts % (Manual) Lymphocytes % (Manual) Monocytes % (Manual) Eosinophils % (Manual) Basophils % (Manual) Nucleated RBC % Seg Neutrophils # Seg Neutrophils # Man Lymphocytes # (Manual) Monocytes # (Manual) Eosinophils # (Manual) Basophils # (Manual) PT INR Fibrinogen dRVVT Confirm Interp Factor V Activity POC ABG pH POC ABG pCO2 POC ABG pO2 ABG pO2 ABG HCO3 ABG Base Excess ABG Hemoglobin Oxyhemoglobin Sodium Potassium Chloride Carbon Dioxide BUN Creatinine Glucose POC Glucose 157 H Lactic Acid 9.70 H* 9.10 H* Calcium Ionized Calcium Phosphorus Magnesium Direct Bilirubin AST ALT Alkaline Phosphatase Lactate Dehydrogenase Troponin T C-Reactive Protein Total Protein Albumin Prealbumin Triglycerides Cholesterol LDL Cholesterol Direct HDL Cholesterol 25-OH Vitamin D Total PTH Intact Urine pH Urine WBC (Auto) Urine Creatinine Urine Total Protein Fluid Total Protein Vancomycin Trough Rheumatoid Factor Complement C4 Miscellaneous Test Crossmatch 01/08/17 01/08/17 01/09/17 17:19 23:12 04:40 WBC RBC Hgb Hct MCV MCH MCHC RDW Plt Count Lymph % (Auto) [place] % (Auto) Lymph # [place] # Baso # Seg Neutrophils % Seg Neuts % (Manual) Lymphocytes % (Manual) Monocytes % (Manual) Eosinophils % (Manual) Basophils % (Manual) Nucleated RBC % Seg Neutrophils # Seg Neutrophils # Man Lymphocytes # (Manual) Monocytes # (Manual) Eosinophils # (Manual) Basophils # (Manual) PT INR Fibrinogen dRVVT Confirm Interp Factor V Activity POC ABG pH POC ABG pCO2 POC ABG pO2 ABG pO2 ABG HCO3 ABG Base Excess ABG Hemoglobin Oxyhemoglobin Sodium 147 H Potassium Chloride Carbon Dioxide BUN 82 H Creatinine 1.8 H Glucose 137 H POC Glucose 164 H 157 H Lactic Acid Calcium Ionized Calcium Phosphorus Magnesium Direct Bilirubin AST ALT Alkaline Phosphatase Lactate Dehydrogenase Troponin T C-Reactive Protein Total Protein Albumin Prealbumin Triglycerides Cholesterol LDL Cholesterol Direct HDL Cholesterol 25-OH Vitamin D Total PTH Intact Urine pH Urine WBC (Auto) Urine Creatinine Urine Total Protein Fluid Total Protein Vancomycin Trough Rheumatoid Factor Complement C4 Miscellaneous Test Crossmatch 01/09/17 01/09/17 01/09/17 05:42 08:22 10:57 WBC RBC Hgb Hct MCV MCH MCHC RDW Plt Count Lymph % (Auto) [place] % (Auto) Lymph # [place] # Baso # Seg Neutrophils % Seg Neuts % (Manual) Lymphocytes % (Manual) Monocytes % (Manual) Eosinophils % (Manual) Basophils % (Manual) Nucleated RBC % Seg Neutrophils # Seg Neutrophils # Man Lymphocytes # (Manual) Monocytes # (Manual) Eosinophils # (Manual) Basophils # (Manual) PT INR Fibrinogen dRVVT Confirm Interp Factor V Activity POC ABG pH POC ABG pCO2 POC ABG pO2 ABG pO2 ABG HCO3 ABG Base Excess ABG Hemoglobin Oxyhemoglobin Sodium Potassium Chloride Carbon Dioxide BUN Creatinine Glucose POC Glucose 156 H 122 H Lactic Acid 2.30 H* Calcium Ionized Calcium Phosphorus Magnesium Direct Bilirubin AST ALT Alkaline Phosphatase Lactate Dehydrogenase Troponin T C-Reactive Protein Total Protein Albumin Prealbumin Triglycerides Cholesterol LDL Cholesterol Direct HDL Cholesterol 25-OH Vitamin D Total PTH Intact Urine pH Urine WBC (Auto) Urine Creatinine Urine Total Protein Fluid Total Protein Vancomycin Trough Rheumatoid Factor Complement C4 Miscellaneous Test Crossmatch 01/09/17 01/09/17 01/09/17 13:30 17:14 18:45 WBC RBC Hgb Hct MCV MCH MCHC RDW Plt Count Lymph % (Auto) [place] % (Auto) Lymph # [place] # Baso # Seg Neutrophils % Seg Neuts % (Manual) Lymphocytes % (Manual) Monocytes % (Manual) Eosinophils % (Manual) Basophils % (Manual) Nucleated RBC % Seg Neutrophils # Seg Neutrophils # Man Lymphocytes # (Manual) Monocytes # (Manual) Eosinophils # (Manual) Basophils # (Manual) PT INR Fibrinogen dRVVT Confirm Interp Factor V Activity POC ABG pH POC ABG pCO2 POC ABG pO2 ABG pO2 ABG HCO3 ABG Base Excess ABG Hemoglobin Oxyhemoglobin Sodium Potassium Chloride Carbon Dioxide BUN Creatinine Glucose POC Glucose 127 H Lactic Acid Calcium Ionized Calcium Phosphorus Magnesium Direct Bilirubin AST ALT Alkaline Phosphatase Lactate Dehydrogenase Troponin T C-Reactive Protein 24.70 H Total Protein Albumin Prealbumin Triglycerides Cholesterol LDL Cholesterol Direct HDL Cholesterol 25-OH Vitamin D Total PTH Intact Urine pH Urine WBC (Auto) Urine Creatinine Urine Total Protein Fluid Total Protein Vancomycin Trough Rheumatoid Factor Complement C4 Miscellaneous Test Flexitest 1 H Crossmatch 01/10/17 01/10/17 01/10/17 01:21 04:00 04:00 WBC 18.1 H RBC 3.22 L Hgb 8.8 L Hct 27.0 L D MCV MCH 27 L MCHC RDW 17.0 H Plt Count Lymph % (Auto) [place] % (Auto) Lymph # [place] # Baso # Seg Neutrophils % Seg Neuts % (Manual) Lymphocytes % (Manual) Monocytes % (Manual) Eosinophils % (Manual) Basophils % (Manual) Nucleated RBC % Seg Neutrophils # Seg Neutrophils # Man Lymphocytes # (Manual) Monocytes # (Manual) Eosinophils # (Manual) Basophils # (Manual) PT INR Fibrinogen dRVVT Confirm Interp Factor V Activity POC ABG pH POC ABG pCO2 POC ABG pO2 ABG pO2 ABG HCO3 ABG Base Excess ABG Hemoglobin Oxyhemoglobin Sodium Potassium Chloride Carbon Dioxide BUN 59 H Creatinine 1.3 H Glucose 122 H POC Glucose 160 H Lactic Acid Calcium Ionized Calcium Phosphorus Magnesium Direct Bilirubin AST ALT Alkaline Phosphatase Lactate Dehydrogenase Troponin T C-Reactive Protein Total Protein Albumin Prealbumin Triglycerides Cholesterol LDL Cholesterol Direct HDL Cholesterol 25-OH Vitamin D Total PTH Intact Urine pH Urine WBC (Auto) Urine Creatinine Urine Total Protein Fluid Total Protein Vancomycin Trough Rheumatoid Factor Complement C4 Miscellaneous Test Crossmatch 01/10/17 01/10/17 01/10/17 05:36 12:14 17:55 WBC RBC Hgb Hct MCV MCH MCHC RDW Plt Count Lymph % (Auto) [place] % (Auto) Lymph # [place] # Baso # Seg Neutrophils % Seg Neuts % (Manual) Lymphocytes % (Manual) Monocytes % (Manual) Eosinophils % (Manual) Basophils % (Manual) Nucleated RBC % Seg Neutrophils # Seg Neutrophils # Man Lymphocytes # (Manual) Monocytes # (Manual) Eosinophils # (Manual) Basophils # (Manual) PT INR Fibrinogen dRVVT Confirm Interp Factor V Activity POC ABG pH POC ABG pCO2 POC ABG pO2 ABG pO2 ABG HCO3 ABG Base Excess ABG Hemoglobin Oxyhemoglobin Sodium Potassium Chloride Carbon Dioxide BUN Creatinine Glucose POC Glucose 163 H 120 H 144 H Lactic Acid Calcium Ionized Calcium Phosphorus Magnesium Direct Bilirubin AST ALT Alkaline Phosphatase Lactate Dehydrogenase Troponin T C-Reactive Protein Total Protein Albumin Prealbumin Triglycerides Cholesterol LDL Cholesterol Direct HDL Cholesterol 25-OH Vitamin D Total PTH Intact Urine pH Urine WBC (Auto) Urine Creatinine Urine Total Protein Fluid Total Protein Vancomycin Trough Rheumatoid Factor Complement C4 Miscellaneous Test Crossmatch 01/11/17 01/11/17 01/11/17 00:09 04:00 04:00 WBC 15.8 H RBC 3.04 L Hgb 8.2 L Hct 25.5 L MCV MCH 27 L MCHC RDW 17.3 H Plt Count Lymph % (Auto) [place] % (Auto) Lymph # [place] # Baso # Seg Neutrophils % Seg Neuts % (Manual) Lymphocytes % (Manual) Monocytes % (Manual) Eosinophils % (Manual) Basophils % (Manual) Nucleated RBC % Seg Neutrophils # Seg Neutrophils # Man Lymphocytes # (Manual) Monocytes # (Manual) Eosinophils # (Manual) Basophils # (Manual) PT INR Fibrinogen dRVVT Confirm Interp Factor V Activity POC ABG pH POC ABG pCO2 POC ABG pO2 ABG pO2 ABG HCO3 ABG Base Excess ABG Hemoglobin Oxyhemoglobin Sodium Potassium Chloride Carbon Dioxide BUN 78 H Creatinine 1.6 H Glucose 109 H POC Glucose 122 H Lactic Acid Calcium Ionized Calcium Phosphorus Magnesium Direct Bilirubin AST ALT Alkaline Phosphatase Lactate Dehydrogenase Troponin T C-Reactive Protein Total Protein Albumin Prealbumin Triglycerides Cholesterol LDL Cholesterol Direct HDL Cholesterol 25-OH Vitamin D Total PTH Intact Urine pH Urine WBC (Auto) Urine Creatinine Urine Total Protein Fluid Total Protein Vancomycin Trough Rheumatoid Factor Complement C4 Miscellaneous Test Crossmatch 01/11/17 01/11/17 01/11/17 12:46 18:23 23:42 WBC RBC Hgb Hct MCV MCH MCHC RDW Plt Count Lymph % (Auto) [place] % (Auto) Lymph # [place] # Baso # Seg Neutrophils % Seg Neuts % (Manual) Lymphocytes % (Manual) Monocytes % (Manual) Eosinophils % (Manual) Basophils % (Manual) Nucleated RBC % Seg Neutrophils # Seg Neutrophils # Man Lymphocytes # (Manual) Monocytes # (Manual) Eosinophils # (Manual) Basophils # (Manual) PT INR Fibrinogen dRVVT Confirm Interp Factor V Activity POC ABG pH POC ABG pCO2 POC ABG pO2 ABG pO2 ABG HCO3 ABG Base Excess ABG Hemoglobin Oxyhemoglobin Sodium Potassium Chloride Carbon Dioxide BUN Creatinine Glucose POC Glucose 148 H 125 H 124 H Lactic Acid Calcium Ionized Calcium Phosphorus Magnesium Direct Bilirubin AST ALT Alkaline Phosphatase Lactate Dehydrogenase Troponin T C-Reactive Protein Total Protein Albumin Prealbumin Triglycerides Cholesterol LDL Cholesterol Direct HDL Cholesterol 25-OH Vitamin D Total PTH Intact Urine pH Urine WBC (Auto) Urine Creatinine Urine Total Protein Fluid Total Protein Vancomycin Trough Rheumatoid Factor Complement C4 Miscellaneous Test Crossmatch 01/12/17 01/12/17 01/12/17 04:30 04:30 05:47 WBC 15.8 H RBC 3.31 L Hgb 8.9 L Hct 27.9 L MCV MCH 27 L MCHC RDW 17.4 H Plt Count Lymph % (Auto) [place] % (Auto) Lymph # [place] # Baso # Seg Neutrophils % Seg Neuts % (Manual) Lymphocytes % (Manual) Monocytes % (Manual) Eosinophils % (Manual) Basophils % (Manual) Nucleated RBC % Seg Neutrophils # Seg Neutrophils # Man Lymphocytes # (Manual) Monocytes # (Manual) Eosinophils # (Manual) Basophils # (Manual) PT INR Fibrinogen dRVVT Confirm Interp Factor V Activity POC ABG pH POC ABG pCO2 POC ABG pO2 ABG pO2 ABG HCO3 ABG Base Excess ABG Hemoglobin Oxyhemoglobin Sodium Potassium Chloride Carbon Dioxide BUN 57 H Creatinine Glucose 121 H POC Glucose 110 H Lactic Acid Calcium Ionized Calcium Phosphorus 2.10 L Magnesium Direct Bilirubin AST ALT Alkaline Phosphatase Lactate Dehydrogenase Troponin T C-Reactive Protein Total Protein Albumin Prealbumin Triglycerides Cholesterol LDL Cholesterol Direct HDL Cholesterol 25-OH Vitamin D Total PTH Intact Urine pH Urine WBC (Auto) Urine Creatinine Urine Total Protein Fluid Total Protein Vancomycin Trough Rheumatoid Factor Complement C4 Miscellaneous Test Crossmatch 01/12/17 01/12/17 01/12/17 11:35 17:45 23:14 WBC RBC Hgb Hct MCV MCH MCHC RDW Plt Count Lymph % (Auto) [place] % (Auto) Lymph # [place] # Baso # Seg Neutrophils % Seg Neuts % (Manual) Lymphocytes % (Manual) Monocytes % (Manual) Eosinophils % (Manual) Basophils % (Manual) Nucleated RBC % Seg Neutrophils # Seg Neutrophils # Man Lymphocytes # (Manual) Monocytes # (Manual) Eosinophils # (Manual) Basophils # (Manual) PT INR Fibrinogen dRVVT Confirm Interp Factor V Activity POC ABG pH POC ABG pCO2 POC ABG pO2 ABG pO2 ABG HCO3 ABG Base Excess ABG Hemoglobin Oxyhemoglobin Sodium Potassium Chloride Carbon Dioxide BUN Creatinine Glucose POC Glucose 146 H 117 H 123 H Lactic Acid Calcium Ionized Calcium Phosphorus Magnesium Direct Bilirubin AST ALT Alkaline Phosphatase Lactate Dehydrogenase Troponin T C-Reactive Protein Total Protein Albumin Prealbumin Triglycerides Cholesterol LDL Cholesterol Direct HDL Cholesterol 25-OH Vitamin D Total PTH Intact Urine pH Urine WBC (Auto) Urine Creatinine Urine Total Protein Fluid Total Protein Vancomycin Trough Rheumatoid Factor Complement C4 Miscellaneous Test Crossmatch 01/13/17 01/13/17 01/13/17 05:32 06:00 12:10 WBC RBC Hgb Hct MCV MCH MCHC RDW Plt Count Lymph % (Auto) [place] % (Auto) Lymph # [place] # Baso # Seg Neutrophils % Seg Neuts % (Manual) Lymphocytes % (Manual) Monocytes % (Manual) Eosinophils % (Manual) Basophils % (Manual) Nucleated RBC % Seg Neutrophils # Seg Neutrophils # Man Lymphocytes # (Manual) Monocytes # (Manual) Eosinophils # (Manual) Basophils # (Manual) PT INR Fibrinogen dRVVT Confirm Interp Factor V Activity POC ABG pH POC ABG pCO2 POC ABG pO2 ABG pO2 ABG HCO3 ABG Base Excess ABG Hemoglobin Oxyhemoglobin Sodium Potassium Chloride Carbon Dioxide BUN 80 H Creatinine 1.4 H Glucose 106 H POC Glucose 106 H Lactic Acid Calcium Ionized Calcium Phosphorus Magnesium Direct Bilirubin AST ALT Alkaline Phosphatase Lactate Dehydrogenase Troponin T C-Reactive Protein Total Protein Albumin Prealbumin Triglycerides Cholesterol LDL Cholesterol Direct HDL Cholesterol 25-OH Vitamin D Total PTH Intact Urine pH Urine WBC (Auto) Urine Creatinine Urine Total Protein Fluid Total Protein 3.0 L Vancomycin Trough Rheumatoid Factor Complement C4 Miscellaneous Test Crossmatch 01/13/17 01/13/17 01/13/17 12:17 15:50 17:30 WBC RBC Hgb Hct MCV MCH MCHC RDW Plt Count Lymph % (Auto) [place] % (Auto) Lymph # [place] # Baso # Seg Neutrophils % Seg Neuts % (Manual) Lymphocytes % (Manual) Monocytes % (Manual) Eosinophils % (Manual) Basophils % (Manual) Nucleated RBC % Seg Neutrophils # Seg Neutrophils # Man Lymphocytes # (Manual) Monocytes # (Manual) Eosinophils # (Manual) Basophils # (Manual) PT 15.4 H INR 1.16 H Fibrinogen dRVVT Confirm Interp Factor V Activity POC ABG pH POC ABG pCO2 POC ABG pO2 ABG pO2 ABG HCO3 ABG Base Excess ABG Hemoglobin Oxyhemoglobin Sodium Potassium Chloride Carbon Dioxide BUN Creatinine Glucose POC Glucose 168 H 110 H Lactic Acid Calcium Ionized Calcium Phosphorus Magnesium Direct Bilirubin AST ALT Alkaline Phosphatase Lactate Dehydrogenase Troponin T C-Reactive Protein Total Protein Albumin Prealbumin Triglycerides Cholesterol LDL Cholesterol Direct HDL Cholesterol 25-OH Vitamin D Total PTH Intact Urine pH Urine WBC (Auto) Urine Creatinine Urine Total Protein Fluid Total Protein Vancomycin Trough Rheumatoid Factor Complement C4 Miscellaneous Test Crossmatch 01/13/17 01/14/17 01/14/17 23:42 05:24 05:30 WBC RBC Hgb Hct MCV MCH MCHC RDW Plt Count Lymph % (Auto) [place] % (Auto) Lymph # [place] # Baso # Seg Neutrophils % Seg Neuts % (Manual) Lymphocytes % (Manual) Monocytes % (Manual) Eosinophils % (Manual) Basophils % (Manual) Nucleated RBC % Seg Neutrophils # Seg Neutrophils # Man Lymphocytes # (Manual) Monocytes # (Manual) Eosinophils # (Manual) Basophils # (Manual) PT INR Fibrinogen dRVVT Confirm Interp Factor V Activity POC ABG pH POC ABG pCO2 POC ABG pO2 ABG pO2 ABG HCO3 ABG Base Excess ABG Hemoglobin Oxyhemoglobin Sodium Potassium Chloride Carbon Dioxide BUN 58 H Creatinine Glucose 114 H POC Glucose 155 H 121 H Lactic Acid Calcium Ionized Calcium Phosphorus Magnesium Direct Bilirubin AST ALT Alkaline Phosphatase Lactate Dehydrogenase Troponin T C-Reactive Protein Total Protein Albumin Prealbumin Triglycerides Cholesterol LDL Cholesterol Direct HDL Cholesterol 25-OH Vitamin D Total PTH Intact Urine pH Urine WBC (Auto) Urine Creatinine Urine Total Protein Fluid Total Protein Vancomycin Trough Rheumatoid Factor Complement C4 Miscellaneous Test Crossmatch 01/14/17 01/14/17 01/15/17 12:48 17:36 00:15 WBC RBC Hgb Hct MCV MCH MCHC RDW Plt Count Lymph % (Auto) [place] % (Auto) Lymph # [place] # Baso # Seg Neutrophils % Seg Neuts % (Manual) Lymphocytes % (Manual) Monocytes % (Manual) Eosinophils % (Manual) Basophils % (Manual) Nucleated RBC % Seg Neutrophils # Seg Neutrophils # Man Lymphocytes # (Manual) Monocytes # (Manual) Eosinophils # (Manual) Basophils # (Manual) PT INR Fibrinogen dRVVT Confirm Interp Factor V Activity POC ABG pH POC ABG pCO2 POC ABG pO2 ABG pO2 ABG HCO3 ABG Base Excess ABG Hemoglobin Oxyhemoglobin Sodium Potassium Chloride Carbon Dioxide BUN Creatinine Glucose POC Glucose 130 H 135 H 132 H Lactic Acid Calcium Ionized Calcium Phosphorus Magnesium Direct Bilirubin AST ALT Alkaline Phosphatase Lactate Dehydrogenase Troponin T C-Reactive Protein Total Protein Albumin Prealbumin Triglycerides Cholesterol LDL Cholesterol Direct HDL Cholesterol 25-OH Vitamin D Total PTH Intact Urine pH Urine WBC (Auto) Urine Creatinine Urine Total Protein Fluid Total Protein Vancomycin Trough Rheumatoid Factor Complement C4 Miscellaneous Test Crossmatch 01/15/17 01/15/17 01/15/17 05:01 11:55 12:45 WBC 16.2 H RBC 3.00 L Hgb 8.1 L Hct 25.4 L MCV MCH 27 L MCHC RDW 17.6 H Plt Count Lymph % (Auto) 11.7 L [place] % (Auto) 7.8 H Lymph # [place] # 1.3 H Baso # Seg Neutrophils % 80.1 H Seg Neuts % (Manual) Lymphocytes % (Manual) Monocytes % (Manual) Eosinophils % (Manual) Basophils % (Manual) Nucleated RBC % Seg Neutrophils # 13.0 H Seg Neutrophils # Man Lymphocytes # (Manual) Monocytes # (Manual) Eosinophils # (Manual) Basophils # (Manual) PT INR Fibrinogen dRVVT Confirm Interp Factor V Activity POC ABG pH POC ABG pCO2 POC ABG pO2 ABG pO2 ABG HCO3 ABG Base Excess ABG Hemoglobin Oxyhemoglobin Sodium Potassium Chloride Carbon Dioxide BUN Creatinine Glucose POC Glucose 126 H 125 H Lactic Acid Calcium Ionized Calcium Phosphorus Magnesium Direct Bilirubin AST ALT Alkaline Phosphatase Lactate Dehydrogenase Troponin T C-Reactive Protein Total Protein Albumin Prealbumin Triglycerides Cholesterol LDL Cholesterol Direct HDL Cholesterol 25-OH Vitamin D Total PTH Intact Urine pH Urine WBC (Auto) Urine Creatinine Urine Total Protein Fluid Total Protein Vancomycin Trough Rheumatoid Factor Complement C4 Miscellaneous Test Crossmatch 01/15/17 01/15/17 01/15/17 12:45 17:31 23:39 WBC RBC Hgb Hct MCV MCH MCHC RDW Plt Count Lymph % (Auto) [place] % (Auto) Lymph # [place] # Baso # Seg Neutrophils % Seg Neuts % (Manual) Lymphocytes % (Manual) Monocytes % (Manual) Eosinophils % (Manual) Basophils % (Manual) Nucleated RBC % Seg Neutrophils # Seg Neutrophils # Man Lymphocytes # (Manual) Monocytes # (Manual) Eosinophils # (Manual) Basophils # (Manual) PT INR Fibrinogen dRVVT Confirm Interp Factor V Activity POC ABG pH POC ABG pCO2 POC ABG pO2 ABG pO2 ABG HCO3 ABG Base Excess ABG Hemoglobin Oxyhemoglobin Sodium 136 L Potassium Chloride Carbon Dioxide BUN 87 H Creatinine 1.7 H Glucose 108 H POC Glucose 129 H 112 H Lactic Acid Calcium Ionized Calcium Phosphorus Magnesium Direct Bilirubin AST ALT Alkaline Phosphatase Lactate Dehydrogenase Troponin T C-Reactive Protein Total Protein Albumin Prealbumin Triglycerides Cholesterol LDL Cholesterol Direct HDL Cholesterol 25-OH Vitamin D Total PTH Intact Urine pH Urine WBC (Auto) Urine Creatinine Urine Total Protein Fluid Total Protein Vancomycin Trough Rheumatoid Factor Complement C4 Miscellaneous Test Crossmatch 01/16/17 01/16/17 01/16/17 05:23 11:42 12:32 WBC RBC Hgb Hct MCV MCH MCHC RDW Plt Count Lymph % (Auto) [place] % (Auto) Lymph # [place] # Baso # Seg Neutrophils % Seg Neuts % (Manual) Lymphocytes % (Manual) Monocytes % (Manual) Eosinophils % (Manual) Basophils % (Manual) Nucleated RBC % Seg Neutrophils # Seg Neutrophils # Man Lymphocytes # (Manual) Monocytes # (Manual) Eosinophils # (Manual) Basophils # (Manual) PT INR Fibrinogen dRVVT Confirm Interp Factor V Activity POC ABG pH 7.499 H POC ABG pCO2 30.9 L POC ABG pO2 51 L ABG pO2 ABG HCO3 ABG Base Excess ABG Hemoglobin Oxyhemoglobin Sodium Potassium Chloride Carbon Dioxide BUN Creatinine Glucose POC Glucose 118 H 133 H Lactic Acid Calcium Ionized Calcium Phosphorus Magnesium Direct Bilirubin AST ALT Alkaline Phosphatase Lactate Dehydrogenase Troponin T C-Reactive Protein Total Protein Albumin Prealbumin Triglycerides Cholesterol LDL Cholesterol Direct HDL Cholesterol 25-OH Vitamin D Total PTH Intact Urine pH Urine WBC (Auto) Urine Creatinine Urine Total Protein Fluid Total Protein Vancomycin Trough Rheumatoid Factor Complement C4 Miscellaneous Test Crossmatch 01/16/17 01/16/17 01/16/17 17:52 23:57 Unknown WBC RBC Hgb Hct MCV MCH MCHC RDW Plt Count Lymph % (Auto) [place] % (Auto) Lymph # [place] # Baso # Seg Neutrophils % Seg Neuts % (Manual) Lymphocytes % (Manual) Monocytes % (Manual) Eosinophils % (Manual) Basophils % (Manual) Nucleated RBC % Seg Neutrophils # Seg Neutrophils # Man Lymphocytes # (Manual) Monocytes # (Manual) Eosinophils # (Manual) Basophils # (Manual) PT INR Fibrinogen dRVVT Confirm Interp Factor V Activity POC ABG pH POC ABG pCO2 POC ABG pO2 ABG pO2 ABG HCO3 ABG Base Excess ABG Hemoglobin Oxyhemoglobin Sodium 135 L Potassium Chloride Carbon Dioxide BUN 101 H Creatinine 1.8 H Glucose 117 H POC Glucose 130 H 143 H Lactic Acid Calcium Ionized Calcium Phosphorus 5.80 H Magnesium Direct Bilirubin AST ALT Alkaline Phosphatase Lactate Dehydrogenase Troponin T C-Reactive Protein Total Protein Albumin Prealbumin Triglycerides Cholesterol LDL Cholesterol Direct HDL Cholesterol 25-OH Vitamin D Total PTH Intact Urine pH Urine WBC (Auto) Urine Creatinine Urine Total Protein Fluid Total Protein Vancomycin Trough Rheumatoid Factor Complement C4 Miscellaneous Test Crossmatch 01/17/17 01/17/17 01/17/17 05:30 05:46 11:49 WBC RBC Hgb Hct MCV MCH MCHC RDW Plt Count Lymph % (Auto) [place] % (Auto) Lymph # [place] # Baso # Seg Neutrophils % Seg Neuts % (Manual) Lymphocytes % (Manual) Monocytes % (Manual) Eosinophils % (Manual) Basophils % (Manual) Nucleated RBC % Seg Neutrophils # Seg Neutrophils # Man Lymphocytes # (Manual) Monocytes # (Manual) Eosinophils # (Manual) Basophils # (Manual) PT INR Fibrinogen dRVVT Confirm Interp Factor V Activity POC ABG pH POC ABG pCO2 POC ABG pO2 ABG pO2 ABG HCO3 ABG Base Excess ABG Hemoglobin Oxyhemoglobin Sodium 134 L Potassium Chloride 95.8 L Carbon Dioxide BUN 66 H Creatinine 1.3 H Glucose 138 H POC Glucose 147 H 124 H Lactic Acid Calcium Ionized Calcium Phosphorus Magnesium Direct Bilirubin AST ALT Alkaline Phosphatase 254 H Lactate Dehydrogenase Troponin T C-Reactive Protein Total Protein Albumin 1.3 L Prealbumin Triglycerides Cholesterol LDL Cholesterol Direct HDL Cholesterol 25-OH Vitamin D Total PTH Intact Urine pH Urine WBC (Auto) Urine Creatinine Urine Total Protein Fluid Total Protein Vancomycin Trough Rheumatoid Factor Complement C4 Miscellaneous Test Crossmatch 01/17/17 01/17/17 01/18/17 17:30 23:41 05:15 WBC RBC Hgb Hct MCV MCH MCHC RDW Plt Count Lymph % (Auto) [place] % (Auto) Lymph # [place] # Baso # Seg Neutrophils % Seg Neuts % (Manual) Lymphocytes % (Manual) Monocytes % (Manual) Eosinophils % (Manual) Basophils % (Manual) Nucleated RBC % Seg Neutrophils # Seg Neutrophils # Man Lymphocytes # (Manual) Monocytes # (Manual) Eosinophils # (Manual) Basophils # (Manual) PT INR Fibrinogen dRVVT Confirm Interp Factor V Activity POC ABG pH POC ABG pCO2 POC ABG pO2 ABG pO2 ABG HCO3 ABG Base Excess ABG Hemoglobin Oxyhemoglobin Sodium Potassium Chloride Carbon Dioxide BUN 89 H Creatinine 1.7 H Glucose 118 H POC Glucose 137 H 119 H Lactic Acid Calcium Ionized Calcium Phosphorus Magnesium Direct Bilirubin AST ALT Alkaline Phosphatase Lactate Dehydrogenase Troponin T C-Reactive Protein Total Protein Albumin Prealbumin Triglycerides Cholesterol LDL Cholesterol Direct HDL Cholesterol 25-OH Vitamin D Total PTH Intact Urine pH Urine WBC (Auto) Urine Creatinine Urine Total Protein Fluid Total Protein Vancomycin Trough Rheumatoid Factor Complement C4 Miscellaneous Test Crossmatch 01/18/17 01/18/17 01/18/17 05:19 12:16 18:11 WBC RBC Hgb Hct MCV MCH MCHC RDW Plt Count Lymph % (Auto) [place] % (Auto) Lymph # [place] # Baso # Seg Neutrophils % Seg Neuts % (Manual) Lymphocytes % (Manual) Monocytes % (Manual) Eosinophils % (Manual) Basophils % (Manual) Nucleated RBC % Seg Neutrophils # Seg Neutrophils # Man Lymphocytes # (Manual) Monocytes # (Manual) Eosinophils # (Manual) Basophils # (Manual) PT INR Fibrinogen dRVVT Confirm Interp Factor V Activity POC ABG pH POC ABG pCO2 POC ABG pO2 ABG pO2 ABG HCO3 ABG Base Excess ABG Hemoglobin Oxyhemoglobin Sodium Potassium Chloride Carbon Dioxide BUN Creatinine Glucose POC Glucose 134 H 188 H 113 H Lactic Acid Calcium Ionized Calcium Phosphorus Magnesium Direct Bilirubin AST ALT Alkaline Phosphatase Lactate Dehydrogenase Troponin T C-Reactive Protein Total Protein Albumin Prealbumin Triglycerides Cholesterol LDL Cholesterol Direct HDL Cholesterol 25-OH Vitamin D Total PTH Intact Urine pH Urine WBC (Auto) Urine Creatinine Urine Total Protein Fluid Total Protein Vancomycin Trough Rheumatoid Factor Complement C4 Miscellaneous Test Crossmatch 01/19/17 01/19/17 01/19/17 00:00 05:30 05:36 WBC RBC Hgb Hct MCV MCH MCHC RDW Plt Count Lymph % (Auto) [place] % (Auto) Lymph # [place] # Baso # Seg Neutrophils % Seg Neuts % (Manual) Lymphocytes % (Manual) Monocytes % (Manual) Eosinophils % (Manual) Basophils % (Manual) Nucleated RBC % Seg Neutrophils # Seg Neutrophils # Man Lymphocytes # (Manual) Monocytes # (Manual) Eosinophils # (Manual) Basophils # (Manual) PT INR Fibrinogen dRVVT Confirm Interp Factor V Activity POC ABG pH POC ABG pCO2 POC ABG pO2 ABG pO2 ABG HCO3 ABG Base Excess ABG Hemoglobin Oxyhemoglobin Sodium Potassium Chloride Carbon Dioxide BUN 70 H Creatinine 1.5 H Glucose 121 H POC Glucose 137 H 155 H Lactic Acid Calcium Ionized Calcium Phosphorus 2.10 L D Magnesium Direct Bilirubin AST ALT Alkaline Phosphatase Lactate Dehydrogenase Troponin T C-Reactive Protein Total Protein Albumin Prealbumin Triglycerides Cholesterol LDL Cholesterol Direct HDL Cholesterol 25-OH Vitamin D Total PTH Intact Urine pH Urine WBC (Auto) Urine Creatinine Urine Total Protein Fluid Total Protein Vancomycin Trough Rheumatoid Factor Complement C4 Miscellaneous Test Crossmatch 01/19/17 01/19/17 01/19/17 11:59 15:32 17:57 WBC RBC Hgb Hct MCV MCH MCHC RDW Plt Count Lymph % (Auto) [place] % (Auto) Lymph # [place] # Baso # Seg Neutrophils % Seg Neuts % (Manual) Lymphocytes % (Manual) Monocytes % (Manual) Eosinophils % (Manual) Basophils % (Manual) Nucleated RBC % Seg Neutrophils # Seg Neutrophils # Man Lymphocytes # (Manual) Monocytes # (Manual) Eosinophils # (Manual) Basophils # (Manual) PT INR Fibrinogen dRVVT Confirm Interp Factor V Activity POC ABG pH POC ABG pCO2 33.1 L POC ABG pO2 76 L ABG pO2 ABG HCO3 ABG Base Excess ABG Hemoglobin Oxyhemoglobin Sodium Potassium Chloride Carbon Dioxide BUN Creatinine Glucose POC Glucose 156 H 129 H Lactic Acid Calcium Ionized Calcium Phosphorus Magnesium Direct Bilirubin AST ALT Alkaline Phosphatase Lactate Dehydrogenase Troponin T C-Reactive Protein Total Protein Albumin Prealbumin Triglycerides Cholesterol LDL Cholesterol Direct HDL Cholesterol 25-OH Vitamin D Total PTH Intact Urine pH Urine WBC (Auto) Urine Creatinine Urine Total Protein Fluid Total Protein Vancomycin Trough Rheumatoid Factor Complement C4 Miscellaneous Test Crossmatch 01/19/17 01/20/17 01/20/17 23:49 04:00 05:21 WBC RBC Hgb Hct MCV MCH MCHC RDW Plt Count Lymph % (Auto) [place] % (Auto) Lymph # [place] # Baso # Seg Neutrophils % Seg Neuts % (Manual) Lymphocytes % (Manual) Monocytes % (Manual) Eosinophils % (Manual) Basophils % (Manual) Nucleated RBC % Seg Neutrophils # Seg Neutrophils # Man Lymphocytes # (Manual) Monocytes # (Manual) Eosinophils # (Manual) Basophils # (Manual) PT INR Fibrinogen dRVVT Confirm Interp Factor V Activity POC ABG pH POC ABG pCO2 POC ABG pO2 ABG pO2 ABG HCO3 ABG Base Excess ABG Hemoglobin Oxyhemoglobin Sodium Potassium Chloride Carbon Dioxide BUN 96 H Creatinine 1.9 H Glucose 106 H POC Glucose 125 H 130 H Lactic Acid Calcium Ionized Calcium Phosphorus 2.40 L Magnesium Direct Bilirubin AST ALT Alkaline Phosphatase Lactate Dehydrogenase Troponin T C-Reactive Protein Total Protein Albumin Prealbumin Triglycerides Cholesterol LDL Cholesterol Direct HDL Cholesterol 25-OH Vitamin D Total PTH Intact Urine pH Urine WBC (Auto) Urine Creatinine Urine Total Protein Fluid Total Protein Vancomycin Trough Rheumatoid Factor Complement C4 Miscellaneous Test Crossmatch 01/20/17 01/20/17 01/20/17 11:58 12:17 17:26 WBC RBC Hgb Hct MCV MCH MCHC RDW Plt Count Lymph % (Auto) [place] % (Auto) Lymph # [place] # Baso # Seg Neutrophils % Seg Neuts % (Manual) Lymphocytes % (Manual) Monocytes % (Manual) Eosinophils % (Manual) Basophils % (Manual) Nucleated RBC % Seg Neutrophils # Seg Neutrophils # Man Lymphocytes # (Manual) Monocytes # (Manual) Eosinophils # (Manual) Basophils # (Manual) PT INR Fibrinogen dRVVT Confirm Interp Factor V Activity POC ABG pH POC ABG pCO2 POC ABG pO2 70 L ABG pO2 ABG HCO3 ABG Base Excess ABG Hemoglobin Oxyhemoglobin Sodium Potassium Chloride Carbon Dioxide BUN Creatinine Glucose POC Glucose 118 H 154 H Lactic Acid Calcium Ionized Calcium Phosphorus Magnesium Direct Bilirubin AST ALT Alkaline Phosphatase Lactate Dehydrogenase Troponin T C-Reactive Protein Total Protein Albumin Prealbumin Triglycerides Cholesterol LDL Cholesterol Direct HDL Cholesterol 25-OH Vitamin D Total PTH Intact Urine pH Urine WBC (Auto) Urine Creatinine Urine Total Protein Fluid Total Protein Vancomycin Trough Rheumatoid Factor Complement C4 Miscellaneous Test Crossmatch 01/21/17 01/21/17 01/21/17 04:00 04:56 11:46 WBC RBC Hgb Hct MCV MCH MCHC RDW Plt Count Lymph % (Auto) [place] % (Auto) Lymph # [place] # Baso # Seg Neutrophils % Seg Neuts % (Manual) Lymphocytes % (Manual) Monocytes % (Manual) Eosinophils % (Manual) Basophils % (Manual) Nucleated RBC % Seg Neutrophils # Seg Neutrophils # Man Lymphocytes # (Manual) Monocytes # (Manual) Eosinophils # (Manual) Basophils # (Manual) PT INR Fibrinogen dRVVT Confirm Interp Factor V Activity POC ABG pH POC ABG pCO2 POC ABG pO2 ABG pO2 ABG HCO3 ABG Base Excess ABG Hemoglobin Oxyhemoglobin Sodium Potassium 3.5 L Chloride 97.4 L Carbon Dioxide BUN 66 H Creatinine 1.4 H Glucose POC Glucose 116 H 106 H Lactic Acid Calcium Ionized Calcium Phosphorus 2.10 L Magnesium Direct Bilirubin AST ALT Alkaline Phosphatase Lactate Dehydrogenase Troponin T C-Reactive Protein Total Protein Albumin Prealbumin Triglycerides Cholesterol LDL Cholesterol Direct HDL Cholesterol 25-OH Vitamin D Total PTH Intact Urine pH Urine WBC (Auto) Urine Creatinine Urine Total Protein Fluid Total Protein Vancomycin Trough Rheumatoid Factor Complement C4 Miscellaneous Test Crossmatch 01/21/17 01/21/17 01/22/17 17:25 23:49 05:35 WBC RBC Hgb Hct MCV MCH MCHC RDW Plt Count Lymph % (Auto) [place] % (Auto) Lymph # [place] # Baso # Seg Neutrophils % Seg Neuts % (Manual) Lymphocytes % (Manual) Monocytes % (Manual) Eosinophils % (Manual) Basophils % (Manual) Nucleated RBC % Seg Neutrophils # Seg Neutrophils # Man Lymphocytes # (Manual) Monocytes # (Manual) Eosinophils # (Manual) Basophils # (Manual) PT INR Fibrinogen dRVVT Confirm Interp Factor V Activity POC ABG pH POC ABG pCO2 POC ABG pO2 ABG pO2 ABG HCO3 ABG Base Excess ABG Hemoglobin Oxyhemoglobin Sodium Potassium Chloride Carbon Dioxide BUN Creatinine Glucose POC Glucose 106 H 133 H 107 H Lactic Acid Calcium Ionized Calcium Phosphorus Magnesium Direct Bilirubin AST ALT Alkaline Phosphatase Lactate Dehydrogenase Troponin T C-Reactive Protein Total Protein Albumin Prealbumin Triglycerides Cholesterol LDL Cholesterol Direct HDL Cholesterol 25-OH Vitamin D Total PTH Intact Urine pH Urine WBC (Auto) Urine Creatinine Urine Total Protein Fluid Total Protein Vancomycin Trough Rheumatoid Factor Complement C4 Miscellaneous Test Crossmatch 01/22/17 01/22/17 01/22/17 07:20 07:20 11:31 WBC RBC 2.75 L Hgb 7.5 L Hct 22.7 L MCV MCH 27 L MCHC RDW 17.5 H Plt Count Lymph % (Auto) [place] % (Auto) Lymph # [place] # Baso # Seg Neutrophils % Seg Neuts % (Manual) Lymphocytes % (Manual) Monocytes % (Manual) Eosinophils % (Manual) Basophils % (Manual) Nucleated RBC % Seg Neutrophils # Seg Neutrophils # Man Lymphocytes # (Manual) Monocytes # (Manual) Eosinophils # (Manual) Basophils # (Manual) PT INR Fibrinogen dRVVT Confirm Interp Factor V Activity POC ABG pH POC ABG pCO2 POC ABG pO2 ABG pO2 ABG HCO3 ABG Base Excess ABG Hemoglobin Oxyhemoglobin Sodium Potassium 3.3 L Chloride Carbon Dioxide BUN 42 H Creatinine Glucose 105 H POC Glucose 124 H Lactic Acid Calcium Ionized Calcium Phosphorus 1.70 L Magnesium Direct Bilirubin AST ALT Alkaline Phosphatase Lactate Dehydrogenase Troponin T C-Reactive Protein Total Protein Albumin Prealbumin Triglycerides Cholesterol LDL Cholesterol Direct HDL Cholesterol 25-OH Vitamin D Total PTH Intact Urine pH Urine WBC (Auto) Urine Creatinine Urine Total Protein Fluid Total Protein Vancomycin Trough Rheumatoid Factor Complement C4 Miscellaneous Test Crossmatch 01/22/17 01/22/17 01/23/17 17:16 23:35 05:35 WBC RBC Hgb Hct MCV MCH MCHC RDW Plt Count Lymph % (Auto) [place] % (Auto) Lymph # [place] # Baso # Seg Neutrophils % Seg Neuts % (Manual) Lymphocytes % (Manual) Monocytes % (Manual) Eosinophils % (Manual) Basophils % (Manual) Nucleated RBC % Seg Neutrophils # Seg Neutrophils # Man Lymphocytes # (Manual) Monocytes # (Manual) Eosinophils # (Manual) Basophils # (Manual) PT INR Fibrinogen dRVVT Confirm Interp Factor V Activity POC ABG pH POC ABG pCO2 POC ABG pO2 ABG pO2 ABG HCO3 ABG Base Excess ABG Hemoglobin Oxyhemoglobin Sodium Potassium Chloride Carbon Dioxide BUN Creatinine Glucose POC Glucose 135 H 120 H 111 H Lactic Acid Calcium Ionized Calcium Phosphorus Magnesium Direct Bilirubin AST ALT Alkaline Phosphatase Lactate Dehydrogenase Troponin T C-Reactive Protein Total Protein Albumin Prealbumin Triglycerides Cholesterol LDL Cholesterol Direct HDL Cholesterol 25-OH Vitamin D Total PTH Intact Urine pH Urine WBC (Auto) Urine Creatinine Urine Total Protein Fluid Total Protein Vancomycin Trough Rheumatoid Factor Complement C4 Miscellaneous Test Crossmatch 01/23/17 01/23/17 01/23/17 06:10 17:27 23:44 WBC RBC Hgb Hct MCV MCH MCHC RDW Plt Count Lymph % (Auto) [place] % (Auto) Lymph # [place] # Baso # Seg Neutrophils % Seg Neuts % (Manual) Lymphocytes % (Manual) Monocytes % (Manual) Eosinophils % (Manual) Basophils % (Manual) Nucleated RBC % Seg Neutrophils # Seg Neutrophils # Man Lymphocytes # (Manual) Monocytes # (Manual) Eosinophils # (Manual) Basophils # (Manual) PT INR Fibrinogen dRVVT Confirm Interp Factor V Activity POC ABG pH POC ABG pCO2 POC ABG pO2 ABG pO2 ABG HCO3 ABG Base Excess ABG Hemoglobin Oxyhemoglobin Sodium Potassium 3.3 L Chloride Carbon Dioxide BUN 66 H Creatinine 1.3 H Glucose 109 H POC Glucose 120 H 115 H Lactic Acid Calcium Ionized Calcium Phosphorus 2.20 L D Magnesium Direct Bilirubin AST ALT Alkaline Phosphatase Lactate Dehydrogenase Troponin T C-Reactive Protein Total Protein Albumin Prealbumin Triglycerides Cholesterol LDL Cholesterol Direct HDL Cholesterol 25-OH Vitamin D Total PTH Intact Urine pH Urine WBC (Auto) Urine Creatinine Urine Total Protein Fluid Total Protein Vancomycin Trough Rheumatoid Factor Complement C4 Miscellaneous Test Crossmatch 01/24/17 01/24/17 01/24/17 05:19 05:50 12:19 WBC RBC Hgb Hct MCV MCH MCHC RDW Plt Count Lymph % (Auto) [place] % (Auto) Lymph # [place] # Baso # Seg Neutrophils % Seg Neuts % (Manual) Lymphocytes % (Manual) Monocytes % (Manual) Eosinophils % (Manual) Basophils % (Manual) Nucleated RBC % Seg Neutrophils # Seg Neutrophils # Man Lymphocytes # (Manual) Monocytes # (Manual) Eosinophils # (Manual) Basophils # (Manual) PT INR Fibrinogen dRVVT Confirm Interp Factor V Activity POC ABG pH POC ABG pCO2 POC ABG pO2 ABG pO2 ABG HCO3 ABG Base Excess ABG Hemoglobin Oxyhemoglobin Sodium Potassium Chloride Carbon Dioxide BUN 47 H Creatinine Glucose 117 H POC Glucose 126 H 119 H Lactic Acid Calcium Ionized Calcium Phosphorus 2.30 L Magnesium 1.60 L Direct Bilirubin AST ALT Alkaline Phosphatase Lactate Dehydrogenase Troponin T C-Reactive Protein Total Protein Albumin Prealbumin Triglycerides Cholesterol LDL Cholesterol Direct HDL Cholesterol 25-OH Vitamin D Total PTH Intact Urine pH Urine WBC (Auto) Urine Creatinine Urine Total Protein Fluid Total Protein Vancomycin Trough Rheumatoid Factor Complement C4 Miscellaneous Test Crossmatch 01/24/17 01/25/17 01/25/17 17:08 00:37 04:00 WBC RBC Hgb Hct MCV MCH MCHC RDW Plt Count Lymph % (Auto) [place] % (Auto) Lymph # [place] # Baso # Seg Neutrophils % Seg Neuts % (Manual) Lymphocytes % (Manual) Monocytes % (Manual) Eosinophils % (Manual) Basophils % (Manual) Nucleated RBC % Seg Neutrophils # Seg Neutrophils # Man Lymphocytes # (Manual) Monocytes # (Manual) Eosinophils # (Manual) Basophils # (Manual) PT INR Fibrinogen dRVVT Confirm Interp Factor V Activity POC ABG pH POC ABG pCO2 POC ABG pO2 ABG pO2 ABG HCO3 ABG Base Excess ABG Hemoglobin Oxyhemoglobin Sodium Potassium Chloride Carbon Dioxide BUN 72 H Creatinine 1.3 H Glucose POC Glucose 127 H 110 H Lactic Acid Calcium Ionized Calcium Phosphorus Magnesium Direct Bilirubin AST ALT Alkaline Phosphatase Lactate Dehydrogenase Troponin T C-Reactive Protein Total Protein Albumin Prealbumin Triglycerides Cholesterol LDL Cholesterol Direct HDL Cholesterol 25-OH Vitamin D Total PTH Intact Urine pH Urine WBC (Auto) Urine Creatinine Urine Total Protein Fluid Total Protein Vancomycin Trough Rheumatoid Factor Complement C4 Miscellaneous Test Crossmatch 01/25/17 01/25/17 01/25/17 04:00 11:15 13:05 WBC RBC 2.49 L Hgb 6.7 L Hct 20.9 L MCV MCH 27 L MCHC RDW 18.8 H Plt Count Lymph % (Auto) [place] % (Auto) 10.1 H Lymph # [place] # 1.0 H Baso # Seg Neutrophils % Seg Neuts % (Manual) Lymphocytes % (Manual) Monocytes % (Manual) Eosinophils % (Manual) Basophils % (Manual) Nucleated RBC % Seg Neutrophils # Seg Neutrophils # Man Lymphocytes # (Manual) Monocytes # (Manual) Eosinophils # (Manual) Basophils # (Manual) PT INR Fibrinogen dRVVT Confirm Interp Factor V Activity POC ABG pH POC ABG pCO2 POC ABG pO2 ABG pO2 ABG HCO3 ABG Base Excess ABG Hemoglobin Oxyhemoglobin Sodium Potassium Chloride Carbon Dioxide BUN Creatinine Glucose POC Glucose 128 H Lactic Acid Calcium Ionized Calcium Phosphorus Magnesium Direct Bilirubin AST ALT Alkaline Phosphatase Lactate Dehydrogenase Troponin T C-Reactive Protein Total Protein Albumin Prealbumin Triglycerides Cholesterol LDL Cholesterol Direct HDL Cholesterol 25-OH Vitamin D Total PTH Intact Urine pH Urine WBC (Auto) Urine Creatinine Urine Total Protein Fluid Total Protein Vancomycin Trough Rheumatoid Factor Complement C4 Miscellaneous Test Crossmatch See Detail 01/25/17 01/25/17 01/26/17 18:02 23:07 01:20 WBC RBC Hgb Hct MCV MCH MCHC RDW Plt Count Lymph % (Auto) [place] % (Auto) Lymph # [place] # Baso # Seg Neutrophils % Seg Neuts % (Manual) Lymphocytes % (Manual) Monocytes % (Manual) Eosinophils % (Manual) Basophils % (Manual) Nucleated RBC % Seg Neutrophils # Seg Neutrophils # Man Lymphocytes # (Manual) Monocytes # (Manual) Eosinophils # (Manual) Basophils # (Manual) PT INR Fibrinogen dRVVT Confirm Interp Factor V Activity POC ABG pH POC ABG pCO2 POC ABG pO2 ABG pO2 ABG HCO3 ABG Base Excess ABG Hemoglobin Oxyhemoglobin Sodium Potassium Chloride Carbon Dioxide BUN Creatinine Glucose POC Glucose 120 H 123 H 112 H Lactic Acid Calcium Ionized Calcium Phosphorus Magnesium Direct Bilirubin AST ALT Alkaline Phosphatase Lactate Dehydrogenase Troponin T C-Reactive Protein Total Protein Albumin Prealbumin Triglycerides Cholesterol LDL Cholesterol Direct HDL Cholesterol 25-OH Vitamin D Total PTH Intact Urine pH Urine WBC (Auto) Urine Creatinine Urine Total Protein Fluid Total Protein Vancomycin Trough Rheumatoid Factor Complement C4 Miscellaneous Test Crossmatch 01/26/17 01/26/17 01/26/17 04:20 04:20 11:23 WBC 13.1 H RBC 3.28 L Hgb 9.0 L Hct 26.9 L D MCV MCH 27 L MCHC RDW 17.2 H Plt Count Lymph % (Auto) [place] % (Auto) 9.0 H Lymph # [place] # 1.2 H Baso # Seg Neutrophils % 73.1 H Seg Neuts % (Manual) Lymphocytes % (Manual) Monocytes % (Manual) Eosinophils % (Manual) Basophils % (Manual) Nucleated RBC % Seg Neutrophils # 9.6 H Seg Neutrophils # Man Lymphocytes # (Manual) Monocytes # (Manual) Eosinophils # (Manual) Basophils # (Manual) PT INR Fibrinogen dRVVT Confirm Interp Factor V Activity POC ABG pH POC ABG pCO2 POC ABG pO2 ABG pO2 ABG HCO3 ABG Base Excess ABG Hemoglobin Oxyhemoglobin Sodium Potassium Chloride Carbon Dioxide BUN 51 H Creatinine Glucose 117 H POC Glucose 125 H Lactic Acid Calcium Ionized Calcium Phosphorus Magnesium Direct Bilirubin AST ALT Alkaline Phosphatase Lactate Dehydrogenase Troponin T C-Reactive Protein Total Protein Albumin Prealbumin Triglycerides Cholesterol LDL Cholesterol Direct HDL Cholesterol 25-OH Vitamin D Total PTH Intact Urine pH Urine WBC (Auto) Urine Creatinine Urine Total Protein Fluid Total Protein Vancomycin Trough Rheumatoid Factor Complement C4 Miscellaneous Test Crossmatch 01/26/17 01/27/17 01/27/17 17:11 00:30 04:00 WBC RBC Hgb Hct MCV MCH MCHC RDW Plt Count Lymph % (Auto) [place] % (Auto) Lymph # [place] # Baso # Seg Neutrophils % Seg Neuts % (Manual) Lymphocytes % (Manual) Monocytes % (Manual) Eosinophils % (Manual) Basophils % (Manual) Nucleated RBC % Seg Neutrophils # Seg Neutrophils # Man Lymphocytes # (Manual) Monocytes # (Manual) Eosinophils # (Manual) Basophils # (Manual) PT INR Fibrinogen dRVVT Confirm Interp Factor V Activity POC ABG pH POC ABG pCO2 POC ABG pO2 ABG pO2 ABG HCO3 ABG Base Excess ABG Hemoglobin Oxyhemoglobin Sodium Potassium Chloride 97.7 L Carbon Dioxide 21 L BUN 79 H Creatinine 1.7 H D Glucose 112 H POC Glucose 133 H 135 H Lactic Acid Calcium Ionized Calcium Phosphorus 5.00 H D Magnesium Direct Bilirubin AST ALT Alkaline Phosphatase Lactate Dehydrogenase Troponin T C-Reactive Protein Total Protein Albumin Prealbumin Triglycerides Cholesterol LDL Cholesterol Direct HDL Cholesterol 25-OH Vitamin D Total PTH Intact Urine pH Urine WBC (Auto) Urine Creatinine Urine Total Protein Fluid Total Protein Vancomycin Trough Rheumatoid Factor Complement C4 Miscellaneous Test Crossmatch 01/27/17 01/27/17 01/27/17 05:12 12:18 17:25 WBC RBC Hgb Hct MCV MCH MCHC RDW Plt Count Lymph % (Auto) [place] % (Auto) Lymph # [place] # Baso # Seg Neutrophils % Seg Neuts % (Manual) Lymphocytes % (Manual) Monocytes % (Manual) Eosinophils % (Manual) Basophils % (Manual) Nucleated RBC % Seg Neutrophils # Seg Neutrophils # Man Lymphocytes # (Manual) Monocytes # (Manual) Eosinophils # (Manual) Basophils # (Manual) PT INR Fibrinogen dRVVT Confirm Interp Factor V Activity POC ABG pH POC ABG pCO2 POC ABG pO2 ABG pO2 ABG HCO3 ABG Base Excess ABG Hemoglobin Oxyhemoglobin Sodium Potassium Chloride Carbon Dioxide BUN Creatinine Glucose POC Glucose 116 H 153 H 152 H Lactic Acid Calcium Ionized Calcium Phosphorus Magnesium Direct Bilirubin AST ALT Alkaline Phosphatase Lactate Dehydrogenase Troponin T C-Reactive Protein Total Protein Albumin Prealbumin Triglycerides Cholesterol LDL Cholesterol Direct HDL Cholesterol 25-OH Vitamin D Total PTH Intact Urine pH Urine WBC (Auto) Urine Creatinine Urine Total Protein Fluid Total Protein Vancomycin Trough Rheumatoid Factor Complement C4 Miscellaneous Test Crossmatch 01/27/17 01/28/17 01/28/17 23:42 04:00 04:00 WBC 14.4 H RBC 2.82 L Hgb 7.4 L Hct 23.5 L MCV MCH 26 L MCHC RDW 17.6 H Plt Count Lymph % (Auto) 10.2 L [place] % (Auto) 11.0 H Lymph # [place] # 1.6 H Baso # Seg Neutrophils % 78.0 H Seg Neuts % (Manual) Lymphocytes % (Manual) Monocytes % (Manual) Eosinophils % (Manual) Basophils % (Manual) Nucleated RBC % Seg Neutrophils # 11.3 H Seg Neutrophils # Man Lymphocytes # (Manual) Monocytes # (Manual) Eosinophils # (Manual) Basophils # (Manual) PT INR Fibrinogen dRVVT Confirm Interp Factor V Activity POC ABG pH POC ABG pCO2 POC ABG pO2 ABG pO2 ABG HCO3 ABG Base Excess ABG Hemoglobin Oxyhemoglobin Sodium Potassium Chloride Carbon Dioxide BUN 55 H Creatinine 1.3 H Glucose 114 H POC Glucose 121 H Lactic Acid Calcium Ionized Calcium Phosphorus Magnesium Direct Bilirubin AST ALT Alkaline Phosphatase Lactate Dehydrogenase Troponin T C-Reactive Protein Total Protein Albumin 1.4 L Prealbumin Triglycerides Cholesterol LDL Cholesterol Direct HDL Cholesterol 25-OH Vitamin D Total PTH Intact Urine pH Urine WBC (Auto) Urine Creatinine Urine Total Protein Fluid Total Protein Vancomycin Trough Rheumatoid Factor Complement C4 Miscellaneous Test Crossmatch 01/28/17 01/28/17 01/29/17 04:59 12:30 00:02 WBC RBC Hgb Hct MCV MCH MCHC RDW Plt Count Lymph % (Auto) [place] % (Auto) Lymph # [place] # Baso # Seg Neutrophils % Seg Neuts % (Manual) Lymphocytes % (Manual) Monocytes % (Manual) Eosinophils % (Manual) Basophils % (Manual) Nucleated RBC % Seg Neutrophils # Seg Neutrophils # Man Lymphocytes # (Manual) Monocytes # (Manual) Eosinophils # (Manual) Basophils # (Manual) PT INR Fibrinogen dRVVT Confirm Interp Factor V Activity POC ABG pH POC ABG pCO2 POC ABG pO2 ABG pO2 ABG HCO3 ABG Base Excess ABG Hemoglobin Oxyhemoglobin Sodium Potassium Chloride Carbon Dioxide BUN Creatinine Glucose POC Glucose 126 H 119 H 138 H Lactic Acid Calcium Ionized Calcium Phosphorus Magnesium Direct Bilirubin AST ALT Alkaline Phosphatase Lactate Dehydrogenase Troponin T C-Reactive Protein Total Protein Albumin Prealbumin Triglycerides Cholesterol LDL Cholesterol Direct HDL Cholesterol 25-OH Vitamin D Total PTH Intact Urine pH Urine WBC (Auto) Urine Creatinine Urine Total Protein Fluid Total Protein Vancomycin Trough Rheumatoid Factor Complement C4 Miscellaneous Test Crossmatch 01/29/17 01/29/17 01/29/17 04:58 06:15 11:35 WBC RBC Hgb Hct MCV MCH MCHC RDW Plt Count Lymph % (Auto) [place] % (Auto) Lymph # [place] # Baso # Seg Neutrophils % Seg Neuts % (Manual) Lymphocytes % (Manual) Monocytes % (Manual) Eosinophils % (Manual) Basophils % (Manual) Nucleated RBC % Seg Neutrophils # Seg Neutrophils # Man Lymphocytes # (Manual) Monocytes # (Manual) Eosinophils # (Manual) Basophils # (Manual) PT INR Fibrinogen dRVVT Confirm Interp Factor V Activity POC ABG pH POC ABG pCO2 POC ABG pO2 ABG pO2 ABG HCO3 ABG Base Excess ABG Hemoglobin Oxyhemoglobin Sodium Potassium Chloride Carbon Dioxide BUN 85 H Creatinine 1.7 H Glucose 105 H POC Glucose 114 H 110 H Lactic Acid Calcium Ionized Calcium Phosphorus Magnesium 2.40 H Direct Bilirubin AST ALT Alkaline Phosphatase Lactate Dehydrogenase Troponin T C-Reactive Protein Total Protein Albumin Prealbumin Triglycerides Cholesterol LDL Cholesterol Direct HDL Cholesterol 25-OH Vitamin D Total PTH Intact Urine pH Urine WBC (Auto) Urine Creatinine Urine Total Protein Fluid Total Protein Vancomycin Trough Rheumatoid Factor Complement C4 Miscellaneous Test Crossmatch 01/29/17 01/29/17 01/30/17 18:24 23:41 05:12 WBC RBC Hgb Hct MCV MCH MCHC RDW Plt Count Lymph % (Auto) [place] % (Auto) Lymph # [place] # Baso # Seg Neutrophils % Seg Neuts % (Manual) Lymphocytes % (Manual) Monocytes % (Manual) Eosinophils % (Manual) Basophils % (Manual) Nucleated RBC % Seg Neutrophils # Seg Neutrophils # Man Lymphocytes # (Manual) Monocytes # (Manual) Eosinophils # (Manual) Basophils # (Manual) PT INR Fibrinogen dRVVT Confirm Interp Factor V Activity POC ABG pH POC ABG pCO2 POC ABG pO2 ABG pO2 ABG HCO3 ABG Base Excess ABG Hemoglobin Oxyhemoglobin Sodium Potassium Chloride Carbon Dioxide BUN Creatinine Glucose POC Glucose 109 H 134 H 109 H Lactic Acid Calcium Ionized Calcium Phosphorus Magnesium Direct Bilirubin AST ALT Alkaline Phosphatase Lactate Dehydrogenase Troponin T C-Reactive Protein Total Protein Albumin Prealbumin Triglycerides Cholesterol LDL Cholesterol Direct HDL Cholesterol 25-OH Vitamin D Total PTH Intact Urine pH Urine WBC (Auto) Urine Creatinine Urine Total Protein Fluid Total Protein Vancomycin Trough Rheumatoid Factor Complement C4 Miscellaneous Test Crossmatch 01/30/17 01/30/17 01/30/17 11:26 17:43 23:39 WBC RBC Hgb Hct MCV MCH MCHC RDW Plt Count Lymph % (Auto) [place] % (Auto) Lymph # [place] # Baso # Seg Neutrophils % Seg Neuts % (Manual) Lymphocytes % (Manual) Monocytes % (Manual) Eosinophils % (Manual) Basophils % (Manual) Nucleated RBC % Seg Neutrophils # Seg Neutrophils # Man Lymphocytes # (Manual) Monocytes # (Manual) Eosinophils # (Manual) Basophils # (Manual) PT INR Fibrinogen dRVVT Confirm Interp Factor V Activity POC ABG pH POC ABG pCO2 POC ABG pO2 ABG pO2 ABG HCO3 ABG Base Excess ABG Hemoglobin Oxyhemoglobin Sodium Potassium Chloride Carbon Dioxide BUN Creatinine Glucose POC Glucose 135 H 143 H 122 H Lactic Acid Calcium Ionized Calcium Phosphorus Magnesium Direct Bilirubin AST ALT Alkaline Phosphatase Lactate Dehydrogenase Troponin T C-Reactive Protein Total Protein Albumin Prealbumin Triglycerides Cholesterol LDL Cholesterol Direct HDL Cholesterol 25-OH Vitamin D Total PTH Intact Urine pH Urine WBC (Auto) Urine Creatinine Urine Total Protein Fluid Total Protein Vancomycin Trough Rheumatoid Factor Complement C4 Miscellaneous Test Crossmatch 01/31/17 01/31/17 01/31/17 04:00 05:40 11:12 WBC RBC Hgb Hct MCV MCH MCHC RDW Plt Count Lymph % (Auto) [place] % (Auto) Lymph # [place] # Baso # Seg Neutrophils % Seg Neuts % (Manual) Lymphocytes % (Manual) Monocytes % (Manual) Eosinophils % (Manual) Basophils % (Manual) Nucleated RBC % Seg Neutrophils # Seg Neutrophils # Man Lymphocytes # (Manual) Monocytes # (Manual) Eosinophils # (Manual) Basophils # (Manual) PT INR Fibrinogen dRVVT Confirm Interp Factor V Activity POC ABG pH POC ABG pCO2 POC ABG pO2 ABG pO2 ABG HCO3 ABG Base Excess ABG Hemoglobin Oxyhemoglobin Sodium Potassium Chloride Carbon Dioxide BUN 78 H Creatinine 1.5 H Glucose 108 H POC Glucose 123 H Lactic Acid Calcium Ionized Calcium Phosphorus Magnesium Direct Bilirubin AST ALT Alkaline Phosphatase Lactate Dehydrogenase Troponin T C-Reactive Protein 8.10 H Total Protein Albumin Prealbumin Triglycerides Cholesterol LDL Cholesterol Direct HDL Cholesterol 25-OH Vitamin D Total PTH Intact Urine pH Urine WBC (Auto) Urine Creatinine Urine Total Protein Fluid Total Protein Vancomycin Trough Rheumatoid Factor Complement C4 Miscellaneous Test Crossmatch 01/31/17 01/31/17 01/31/17 11:16 17:45 17:50 WBC RBC Hgb Hct MCV MCH MCHC RDW Plt Count Lymph % (Auto) [place] % (Auto) Lymph # [place] # Baso # Seg Neutrophils % Seg Neuts % (Manual) Lymphocytes % (Manual) Monocytes % (Manual) Eosinophils % (Manual) Basophils % (Manual) Nucleated RBC % Seg Neutrophils # Seg Neutrophils # Man Lymphocytes # (Manual) Monocytes # (Manual) Eosinophils # (Manual) Basophils # (Manual) PT INR Fibrinogen dRVVT Confirm Interp Factor V Activity POC ABG pH POC ABG pCO2 POC ABG pO2 ABG pO2 ABG HCO3 ABG Base Excess ABG Hemoglobin Oxyhemoglobin Sodium Potassium Chloride Carbon Dioxide BUN Creatinine Glucose POC Glucose 119 H 111 H Lactic Acid Calcium Ionized Calcium Phosphorus Magnesium Direct Bilirubin AST ALT Alkaline Phosphatase Lactate Dehydrogenase Troponin T C-Reactive Protein Total Protein Albumin Prealbumin Triglycerides Cholesterol LDL Cholesterol Direct HDL Cholesterol 25-OH Vitamin D Total PTH Intact 6.76 L Urine pH Urine WBC (Auto) Urine Creatinine Urine Total Protein Fluid Total Protein Vancomycin Trough Rheumatoid Factor Complement C4 Miscellaneous Test Crossmatch 01/31/17 02/01/17 02/01/17 23:19 05:42 09:24 WBC RBC Hgb Hct MCV MCH MCHC RDW Plt Count Lymph % (Auto) [place] % (Auto) Lymph # [place] # Baso # Seg Neutrophils % Seg Neuts % (Manual) Lymphocytes % (Manual) Monocytes % (Manual) Eosinophils % (Manual) Basophils % (Manual) Nucleated RBC % Seg Neutrophils # Seg Neutrophils # Man Lymphocytes # (Manual) Monocytes # (Manual) Eosinophils # (Manual) Basophils # (Manual) PT INR Fibrinogen dRVVT Confirm Interp Factor V Activity POC ABG pH POC ABG pCO2 POC ABG pO2 ABG pO2 ABG HCO3 ABG Base Excess ABG Hemoglobin Oxyhemoglobin Sodium Potassium Chloride Carbon Dioxide BUN Creatinine Glucose POC Glucose 118 H 122 H Lactic Acid Calcium Ionized Calcium Phosphorus Magnesium 2.60 H Direct Bilirubin AST ALT Alkaline Phosphatase Lactate Dehydrogenase Troponin T C-Reactive Protein Total Protein Albumin Prealbumin Triglycerides Cholesterol LDL Cholesterol Direct HDL Cholesterol 25-OH Vitamin D Total PTH Intact Urine pH Urine WBC (Auto) Urine Creatinine Urine Total Protein Fluid Total Protein Vancomycin Trough Rheumatoid Factor Complement C4 Miscellaneous Test Crossmatch 02/01/17 02/01/17 02/02/17 09:24 12:15 07:40 WBC RBC Hgb Hct MCV MCH MCHC RDW Plt Count Lymph % (Auto) [place] % (Auto) Lymph # [place] # Baso # Seg Neutrophils % Seg Neuts % (Manual) Lymphocytes % (Manual) Monocytes % (Manual) Eosinophils % (Manual) Basophils % (Manual) Nucleated RBC % Seg Neutrophils # Seg Neutrophils # Man Lymphocytes # (Manual) Monocytes # (Manual) Eosinophils # (Manual) Basophils # (Manual) PT INR Fibrinogen dRVVT Confirm Interp Factor V Activity POC ABG pH POC ABG pCO2 POC ABG pO2 ABG pO2 ABG HCO3 ABG Base Excess ABG Hemoglobin Oxyhemoglobin Sodium Potassium Chloride Carbon Dioxide BUN 102 H 72 H Creatinine 1.9 H 1.5 H Glucose 120 H POC Glucose 156 H Lactic Acid Calcium Ionized Calcium Phosphorus Magnesium Direct Bilirubin AST ALT Alkaline Phosphatase Lactate Dehydrogenase Troponin T C-Reactive Protein Total Protein Albumin Prealbumin Triglycerides Cholesterol LDL Cholesterol Direct HDL Cholesterol 25-OH Vitamin D Total PTH Intact Urine pH Urine WBC (Auto) Urine Creatinine Urine Total Protein Fluid Total Protein Vancomycin Trough Rheumatoid Factor Complement C4 Miscellaneous Test Crossmatch 02/02/17 02/02/17 02/03/17 10:16 12:11 00:08 WBC 12.0 H RBC 3.08 L Hgb 8.3 L Hct 25.6 L MCV MCH 27 L MCHC RDW 18.2 H Plt Count Lymph % (Auto) [place] % (Auto) Lymph # [place] # Baso # Seg Neutrophils % 78.4 H Seg Neuts % (Manual) Lymphocytes % (Manual) Monocytes % (Manual) Eosinophils % (Manual) Basophils % (Manual) Nucleated RBC % Seg Neutrophils # 9.4 H Seg Neutrophils # Man Lymphocytes # (Manual) Monocytes # (Manual) Eosinophils # (Manual) Basophils # (Manual) PT INR Fibrinogen dRVVT Confirm Interp Factor V Activity POC ABG pH POC ABG pCO2 POC ABG pO2 ABG pO2 ABG HCO3 ABG Base Excess ABG Hemoglobin Oxyhemoglobin Sodium Potassium Chloride Carbon Dioxide BUN Creatinine Glucose POC Glucose 110 H 120 H Lactic Acid Calcium Ionized Calcium Phosphorus Magnesium Direct Bilirubin AST ALT Alkaline Phosphatase Lactate Dehydrogenase Troponin T C-Reactive Protein Total Protein Albumin Prealbumin Triglycerides Cholesterol LDL Cholesterol Direct HDL Cholesterol 25-OH Vitamin D Total PTH Intact Urine pH Urine WBC (Auto) Urine Creatinine Urine Total Protein Fluid Total Protein Vancomycin Trough Rheumatoid Factor Complement C4 Miscellaneous Test Crossmatch 02/03/17 02/03/17 02/03/17 05:41 07:38 11:31 WBC RBC Hgb Hct MCV MCH MCHC RDW Plt Count Lymph % (Auto) [place] % (Auto) Lymph # [place] # Baso # Seg Neutrophils % Seg Neuts % (Manual) Lymphocytes % (Manual) Monocytes % (Manual) Eosinophils % (Manual) Basophils % (Manual) Nucleated RBC % Seg Neutrophils # Seg Neutrophils # Man Lymphocytes # (Manual) Monocytes # (Manual) Eosinophils # (Manual) Basophils # (Manual) PT INR Fibrinogen dRVVT Confirm Interp Factor V Activity POC ABG pH POC ABG pCO2 POC ABG pO2 ABG pO2 ABG HCO3 ABG Base Excess ABG Hemoglobin Oxyhemoglobin Sodium 134 L Potassium Chloride Carbon Dioxide 21 L BUN 91 H Creatinine 1.9 H Glucose 110 H POC Glucose 119 H 119 H Lactic Acid Calcium 10.3 H Ionized Calcium Phosphorus Magnesium Direct Bilirubin AST ALT Alkaline Phosphatase Lactate Dehydrogenase Troponin T C-Reactive Protein Total Protein Albumin Prealbumin Triglycerides Cholesterol LDL Cholesterol Direct HDL Cholesterol 25-OH Vitamin D Total PTH Intact Urine pH Urine WBC (Auto) Urine Creatinine Urine Total Protein Fluid Total Protein Vancomycin Trough Rheumatoid Factor Complement C4 Miscellaneous Test Crossmatch 02/03/17 02/04/17 02/04/17 17:13 04:00 05:18 WBC RBC Hgb Hct MCV MCH MCHC RDW Plt Count Lymph % (Auto) [place] % (Auto) Lymph # [place] # Baso # Seg Neutrophils % Seg Neuts % (Manual) Lymphocytes % (Manual) Monocytes % (Manual) Eosinophils % (Manual) Basophils % (Manual) Nucleated RBC % Seg Neutrophils # Seg Neutrophils # Man Lymphocytes # (Manual) Monocytes # (Manual) Eosinophils # (Manual) Basophils # (Manual) PT INR Fibrinogen dRVVT Confirm Interp Factor V Activity POC ABG pH POC ABG pCO2 POC ABG pO2 ABG pO2 ABG HCO3 ABG Base Excess ABG Hemoglobin Oxyhemoglobin Sodium 136 L Potassium Chloride Carbon Dioxide BUN 58 H Creatinine 1.3 H Glucose 103 H POC Glucose 133 H 132 H Lactic Acid Calcium Ionized Calcium Phosphorus 2.00 L D Magnesium 1.60 L Direct Bilirubin AST ALT Alkaline Phosphatase Lactate Dehydrogenase Troponin T C-Reactive Protein Total Protein Albumin Prealbumin Triglycerides Cholesterol LDL Cholesterol Direct HDL Cholesterol 25-OH Vitamin D Total PTH Intact Urine pH Urine WBC (Auto) Urine Creatinine Urine Total Protein Fluid Total Protein Vancomycin Trough Rheumatoid Factor Complement C4 Miscellaneous Test Crossmatch 02/05/17 02/05/17 02/05/17 00:01 04:00 06:42 WBC RBC Hgb Hct MCV MCH MCHC RDW Plt Count Lymph % (Auto) [place] % (Auto) Lymph # [place] # Baso # Seg Neutrophils % Seg Neuts % (Manual) Lymphocytes % (Manual) Monocytes % (Manual) Eosinophils % (Manual) Basophils % (Manual) Nucleated RBC % Seg Neutrophils # Seg Neutrophils # Man Lymphocytes # (Manual) Monocytes # (Manual) Eosinophils # (Manual) Basophils # (Manual) PT INR Fibrinogen dRVVT Confirm Interp Factor V Activity POC ABG pH POC ABG pCO2 POC ABG pO2 ABG pO2 ABG HCO3 ABG Base Excess ABG Hemoglobin Oxyhemoglobin Sodium Potassium Chloride Carbon Dioxide BUN 83 H Creatinine 1.8 H Glucose POC Glucose 119 H 110 H Lactic Acid Calcium 10.7 H Ionized Calcium Phosphorus Magnesium Direct Bilirubin AST ALT Alkaline Phosphatase Lactate Dehydrogenase Troponin T C-Reactive Protein Total Protein Albumin Prealbumin Triglycerides Cholesterol LDL Cholesterol Direct HDL Cholesterol 25-OH Vitamin D Total PTH Intact Urine pH Urine WBC (Auto) Urine Creatinine Urine Total Protein Fluid Total Protein Vancomycin Trough Rheumatoid Factor Complement C4 Miscellaneous Test Crossmatch 02/05/17 02/05/17 02/05/17 09:59 11:47 23:44 WBC RBC 2.69 L Hgb 7.2 L Hct 22.5 L MCV MCH 27 L MCHC RDW 18.6 H Plt Count Lymph % (Auto) [place] % (Auto) 9.2 H Lymph # [place] # 0.9 H Baso # Seg Neutrophils % Seg Neuts % (Manual) Lymphocytes % (Manual) Monocytes % (Manual) Eosinophils % (Manual) Basophils % (Manual) Nucleated RBC % Seg Neutrophils # Seg Neutrophils # Man Lymphocytes # (Manual) Monocytes # (Manual) Eosinophils # (Manual) Basophils # (Manual) PT INR Fibrinogen dRVVT Confirm Interp Factor V Activity POC ABG pH POC ABG pCO2 POC ABG pO2 ABG pO2 ABG HCO3 ABG Base Excess ABG Hemoglobin Oxyhemoglobin Sodium Potassium Chloride Carbon Dioxide BUN Creatinine Glucose POC Glucose 130 H 123 H Lactic Acid Calcium Ionized Calcium Phosphorus Magnesium Direct Bilirubin AST ALT Alkaline Phosphatase Lactate Dehydrogenase Troponin T C-Reactive Protein Total Protein Albumin Prealbumin Triglycerides Cholesterol LDL Cholesterol Direct HDL Cholesterol 25-OH Vitamin D Total PTH Intact Urine pH Urine WBC (Auto) Urine Creatinine Urine Total Protein Fluid Total Protein Vancomycin Trough Rheumatoid Factor Complement C4 Miscellaneous Test Crossmatch 02/06/17 02/06/17 02/06/17 04:45 05:58 12:01 WBC RBC Hgb Hct MCV MCH MCHC RDW Plt Count Lymph % (Auto) [place] % (Auto) Lymph # [place] # Baso # Seg Neutrophils % Seg Neuts % (Manual) Lymphocytes % (Manual) Monocytes % (Manual) Eosinophils % (Manual) Basophils % (Manual) Nucleated RBC % Seg Neutrophils # Seg Neutrophils # Man Lymphocytes # (Manual) Monocytes # (Manual) Eosinophils # (Manual) Basophils # (Manual) PT INR Fibrinogen dRVVT Confirm Interp Factor V Activity POC ABG pH POC ABG pCO2 POC ABG pO2 ABG pO2 ABG HCO3 ABG Base Excess ABG Hemoglobin Oxyhemoglobin Sodium Potassium Chloride Carbon Dioxide BUN 101 H Creatinine 2.0 H Glucose 102 H POC Glucose 115 H 132 H Lactic Acid Calcium 10.6 H Ionized Calcium Phosphorus Magnesium Direct Bilirubin AST ALT Alkaline Phosphatase 199 H Lactate Dehydrogenase Troponin T C-Reactive Protein Total Protein Albumin 1.4 L Prealbumin Triglycerides Cholesterol LDL Cholesterol Direct HDL Cholesterol 25-OH Vitamin D Total PTH Intact Urine pH Urine WBC (Auto) Urine Creatinine Urine Total Protein Fluid Total Protein Vancomycin Trough Rheumatoid Factor Complement C4 Miscellaneous Test Crossmatch 02/06/17 02/06/17 02/07/17 17:41 23:32 05:04 WBC RBC Hgb Hct MCV MCH MCHC RDW Plt Count Lymph % (Auto) [place] % (Auto) Lymph # [place] # Baso # Seg Neutrophils % Seg Neuts % (Manual) Lymphocytes % (Manual) Monocytes % (Manual) Eosinophils % (Manual) Basophils % (Manual) Nucleated RBC % Seg Neutrophils # Seg Neutrophils # Man Lymphocytes # (Manual) Monocytes # (Manual) Eosinophils # (Manual) Basophils # (Manual) PT INR Fibrinogen dRVVT Confirm Interp Factor V Activity POC ABG pH POC ABG pCO2 POC ABG pO2 ABG pO2 ABG HCO3 ABG Base Excess ABG Hemoglobin Oxyhemoglobin Sodium Potassium Chloride Carbon Dioxide BUN Creatinine Glucose POC Glucose 134 H 128 H 119 H Lactic Acid Calcium Ionized Calcium Phosphorus Magnesium Direct Bilirubin AST ALT Alkaline Phosphatase Lactate Dehydrogenase Troponin T C-Reactive Protein Total Protein Albumin Prealbumin Triglycerides Cholesterol LDL Cholesterol Direct HDL Cholesterol 25-OH Vitamin D Total PTH Intact Urine pH Urine WBC (Auto) Urine Creatinine Urine Total Protein Fluid Total Protein Vancomycin Trough Rheumatoid Factor Complement C4 Miscellaneous Test Crossmatch 02/07/17 02/07/17 02/07/17 06:30 11:20 17:13 WBC RBC Hgb Hct MCV MCH MCHC RDW Plt Count Lymph % (Auto) [place] % (Auto) Lymph # [place] # Baso # Seg Neutrophils % Seg Neuts % (Manual) Lymphocytes % (Manual) Monocytes % (Manual) Eosinophils % (Manual) Basophils % (Manual) Nucleated RBC % Seg Neutrophils # Seg Neutrophils # Man Lymphocytes # (Manual) Monocytes # (Manual) Eosinophils # (Manual) Basophils # (Manual) PT INR Fibrinogen dRVVT Confirm Interp Factor V Activity POC ABG pH POC ABG pCO2 POC ABG pO2 ABG pO2 ABG HCO3 ABG Base Excess ABG Hemoglobin Oxyhemoglobin Sodium Potassium 3.4 L Chloride Carbon Dioxide BUN 69 H Creatinine 1.5 H Glucose 105 H POC Glucose 117 H 110 H Lactic Acid Calcium Ionized Calcium Phosphorus Magnesium 1.50 L Direct Bilirubin AST ALT Alkaline Phosphatase Lactate Dehydrogenase Troponin T C-Reactive Protein Total Protein Albumin Prealbumin Triglycerides Cholesterol LDL Cholesterol Direct HDL Cholesterol 25-OH Vitamin D Total PTH Intact Urine pH Urine WBC (Auto) Urine Creatinine Urine Total Protein Fluid Total Protein Vancomycin Trough Rheumatoid Factor Complement C4 Miscellaneous Test Crossmatch 02/07/17 02/08/17 02/08/17 20:47 04:00 11:43 WBC RBC Hgb Hct MCV MCH MCHC RDW Plt Count Lymph % (Auto) [place] % (Auto) Lymph # [place] # Baso # Seg Neutrophils % Seg Neuts % (Manual) Lymphocytes % (Manual) Monocytes % (Manual) Eosinophils % (Manual) Basophils % (Manual) Nucleated RBC % Seg Neutrophils # Seg Neutrophils # Man Lymphocytes # (Manual) Monocytes # (Manual) Eosinophils # (Manual) Basophils # (Manual) PT INR Fibrinogen dRVVT Confirm Interp Factor V Activity POC ABG pH POC ABG pCO2 POC ABG pO2 ABG pO2 ABG HCO3 ABG Base Excess ABG Hemoglobin Oxyhemoglobin Sodium Potassium Chloride Carbon Dioxide BUN 86 H Creatinine 1.7 H Glucose POC Glucose 115 H 122 H Lactic Acid Calcium Ionized Calcium Phosphorus Magnesium 1.60 L Direct Bilirubin AST ALT Alkaline Phosphatase Lactate Dehydrogenase Troponin T C-Reactive Protein Total Protein Albumin Prealbumin Triglycerides Cholesterol LDL Cholesterol Direct HDL Cholesterol 25-OH Vitamin D Total PTH Intact Urine pH Urine WBC (Auto) Urine Creatinine Urine Total Protein Fluid Total Protein Vancomycin Trough Rheumatoid Factor Complement C4 Miscellaneous Test Crossmatch 02/08/17 02/09/17 02/09/17 17:36 05:44 11:30 WBC RBC Hgb Hct MCV MCH MCHC RDW Plt Count Lymph % (Auto) [place] % (Auto) Lymph # [place] # Baso # Seg Neutrophils % Seg Neuts % (Manual) Lymphocytes % (Manual) Monocytes % (Manual) Eosinophils % (Manual) Basophils % (Manual) Nucleated RBC % Seg Neutrophils # Seg Neutrophils # Man Lymphocytes # (Manual) Monocytes # (Manual) Eosinophils # (Manual) Basophils # (Manual) PT INR Fibrinogen dRVVT Confirm Interp Factor V Activity POC ABG pH POC ABG pCO2 POC ABG pO2 ABG pO2 ABG HCO3 ABG Base Excess ABG Hemoglobin Oxyhemoglobin Sodium Potassium Chloride Carbon Dioxide BUN Creatinine Glucose POC Glucose 125 H 117 H 120 H Lactic Acid Calcium Ionized Calcium Phosphorus Magnesium Direct Bilirubin AST ALT Alkaline Phosphatase Lactate Dehydrogenase Troponin T C-Reactive Protein Total Protein Albumin Prealbumin Triglycerides Cholesterol LDL Cholesterol Direct HDL Cholesterol 25-OH Vitamin D Total PTH Intact Urine pH Urine WBC (Auto) Urine Creatinine Urine Total Protein Fluid Total Protein Vancomycin Trough Rheumatoid Factor Complement C4 Miscellaneous Test Crossmatch 02/09/17 02/10/17 02/10/17 23:45 05:45 05:50 WBC RBC Hgb Hct MCV MCH MCHC RDW Plt Count Lymph % (Auto) [place] % (Auto) Lymph # [place] # Baso # Seg Neutrophils % Seg Neuts % (Manual) Lymphocytes % (Manual) Monocytes % (Manual) Eosinophils % (Manual) Basophils % (Manual) Nucleated RBC % Seg Neutrophils # Seg Neutrophils # Man Lymphocytes # (Manual) Monocytes # (Manual) Eosinophils # (Manual) Basophils # (Manual) PT INR Fibrinogen dRVVT Confirm Interp Factor V Activity POC ABG pH POC ABG pCO2 POC ABG pO2 ABG pO2 ABG HCO3 ABG Base Excess ABG Hemoglobin Oxyhemoglobin Sodium Potassium Chloride Carbon Dioxide BUN 85 H Creatinine 1.8 H Glucose 109 H POC Glucose 114 H 189 H Lactic Acid Calcium Ionized Calcium Phosphorus Magnesium 2.50 H Direct Bilirubin AST ALT Alkaline Phosphatase Lactate Dehydrogenase Troponin T C-Reactive Protein Total Protein Albumin Prealbumin Triglycerides Cholesterol LDL Cholesterol Direct HDL Cholesterol 25-OH Vitamin D Total PTH Intact Urine pH Urine WBC (Auto) Urine Creatinine Urine Total Protein Fluid Total Protein Vancomycin Trough Rheumatoid Factor Complement C4 Miscellaneous Test Crossmatch 02/10/17 02/10/17 02/10/17 05:51 11:55 17:42 WBC RBC Hgb Hct MCV MCH MCHC RDW Plt Count Lymph % (Auto) [place] % (Auto) Lymph # [place] # Baso # Seg Neutrophils % Seg Neuts % (Manual) Lymphocytes % (Manual) Monocytes % (Manual) Eosinophils % (Manual) Basophils % (Manual) Nucleated RBC % Seg Neutrophils # Seg Neutrophils # Man Lymphocytes # (Manual) Monocytes # (Manual) Eosinophils # (Manual) Basophils # (Manual) PT INR Fibrinogen dRVVT Confirm Interp Factor V Activity POC ABG pH POC ABG pCO2 POC ABG pO2 ABG pO2 ABG HCO3 ABG Base Excess ABG Hemoglobin Oxyhemoglobin Sodium Potassium Chloride Carbon Dioxide BUN Creatinine Glucose POC Glucose 106 H 146 H 132 H Lactic Acid Calcium Ionized Calcium Phosphorus Magnesium Direct Bilirubin AST ALT Alkaline Phosphatase Lactate Dehydrogenase Troponin T C-Reactive Protein Total Protein Albumin Prealbumin Triglycerides Cholesterol LDL Cholesterol Direct HDL Cholesterol 25-OH Vitamin D Total PTH Intact Urine pH Urine WBC (Auto) Urine Creatinine Urine Total Protein Fluid Total Protein Vancomycin Trough Rheumatoid Factor Complement C4 Miscellaneous Test Crossmatch 02/10/17 02/11/17 02/11/17 23:43 04:08 05:34 WBC RBC Hgb Hct MCV MCH MCHC RDW Plt Count Lymph % (Auto) [place] % (Auto) Lymph # [place] # Baso # Seg Neutrophils % Seg Neuts % (Manual) Lymphocytes % (Manual) Monocytes % (Manual) Eosinophils % (Manual) Basophils % (Manual) Nucleated RBC % Seg Neutrophils # Seg Neutrophils # Man Lymphocytes # (Manual) Monocytes # (Manual) Eosinophils # (Manual) Basophils # (Manual) PT INR Fibrinogen dRVVT Confirm Interp Factor V Activity POC ABG pH POC ABG pCO2 POC ABG pO2 ABG pO2 ABG HCO3 ABG Base Excess ABG Hemoglobin Oxyhemoglobin Sodium 136 L Potassium Chloride Carbon Dioxide BUN 65 H Creatinine 1.7 H Glucose 105 H POC Glucose 130 H 113 H Lactic Acid Calcium Ionized Calcium Phosphorus Magnesium Direct Bilirubin AST ALT Alkaline Phosphatase Lactate Dehydrogenase Troponin T C-Reactive Protein Total Protein Albumin Prealbumin Triglycerides Cholesterol LDL Cholesterol Direct HDL Cholesterol 25-OH Vitamin D Total PTH Intact Urine pH Urine WBC (Auto) Urine Creatinine Urine Total Protein Fluid Total Protein Vancomycin Trough Rheumatoid Factor Complement C4 Miscellaneous Test Crossmatch 02/11/17 02/11/17 02/12/17 11:56 23:18 06:19 WBC RBC Hgb Hct MCV MCH MCHC RDW Plt Count Lymph % (Auto) [place] % (Auto) Lymph # [place] # Baso # Seg Neutrophils % Seg Neuts % (Manual) Lymphocytes % (Manual) Monocytes % (Manual) Eosinophils % (Manual) Basophils % (Manual) Nucleated RBC % Seg Neutrophils # Seg Neutrophils # Man Lymphocytes # (Manual) Monocytes # (Manual) Eosinophils # (Manual) Basophils # (Manual) PT INR Fibrinogen dRVVT Confirm Interp Factor V Activity POC ABG pH POC ABG pCO2 POC ABG pO2 ABG pO2 ABG HCO3 ABG Base Excess ABG Hemoglobin Oxyhemoglobin Sodium 136 L Potassium Chloride 97.1 L Carbon Dioxide BUN 93 H Creatinine 2.4 H Glucose POC Glucose 126 H 119 H Lactic Acid Calcium 11.0 H Ionized Calcium Phosphorus Magnesium Direct Bilirubin AST ALT Alkaline Phosphatase Lactate Dehydrogenase Troponin T C-Reactive Protein Total Protein Albumin Prealbumin Triglycerides Cholesterol LDL Cholesterol Direct HDL Cholesterol 25-OH Vitamin D Total PTH Intact Urine pH Urine WBC (Auto) Urine Creatinine Urine Total Protein Fluid Total Protein Vancomycin Trough Rheumatoid Factor Complement C4 Miscellaneous Test Crossmatch 02/12/17 02/12/17 02/12/17 08:00 10:25 11:42 WBC 15.4 H RBC 2.63 L Hgb 6.9 L Hct 22.6 L MCV MCH 26 L MCHC RDW 20.5 H Plt Count Lymph % (Auto) [place] % (Auto) Lymph # [place] # Baso # Seg Neutrophils % Seg Neuts % (Manual) Lymphocytes % (Manual) Monocytes % (Manual) Eosinophils % (Manual) Basophils % (Manual) Nucleated RBC % Seg Neutrophils # Seg Neutrophils # Man Lymphocytes # (Manual) Monocytes # (Manual) Eosinophils # (Manual) Basophils # (Manual) PT INR Fibrinogen dRVVT Confirm Interp Factor V Activity POC ABG pH POC ABG pCO2 POC ABG pO2 ABG pO2 ABG HCO3 ABG Base Excess ABG Hemoglobin Oxyhemoglobin Sodium Potassium Chloride Carbon Dioxide BUN Creatinine Glucose POC Glucose 142 H Lactic Acid Calcium Ionized Calcium Phosphorus Magnesium Direct Bilirubin AST ALT Alkaline Phosphatase Lactate Dehydrogenase Troponin T C-Reactive Protein Total Protein Albumin Prealbumin Triglycerides Cholesterol LDL Cholesterol Direct HDL Cholesterol 25-OH Vitamin D Total PTH Intact Urine pH Urine WBC (Auto) Urine Creatinine Urine Total Protein Fluid Total Protein Vancomycin Trough Rheumatoid Factor Complement C4 Miscellaneous Test Crossmatch See Detail 02/12/17 02/13/17 02/13/17 18:04 00:04 05:00 WBC RBC Hgb Hct MCV MCH MCHC RDW Plt Count Lymph % (Auto) [place] % (Auto) Lymph # [place] # Baso # Seg Neutrophils % Seg Neuts % (Manual) Lymphocytes % (Manual) Monocytes % (Manual) Eosinophils % (Manual) Basophils % (Manual) Nucleated RBC % Seg Neutrophils # Seg Neutrophils # Man Lymphocytes # (Manual) Monocytes # (Manual) Eosinophils # (Manual) Basophils # (Manual) PT INR Fibrinogen dRVVT Confirm Interp Factor V Activity POC ABG pH POC ABG pCO2 POC ABG pO2 ABG pO2 ABG HCO3 ABG Base Excess ABG Hemoglobin Oxyhemoglobin Sodium 134 L Potassium Chloride 96.1 L Carbon Dioxide 20 L BUN 125 H Creatinine 3.0 H Glucose 111 H POC Glucose 135 H 109 H Lactic Acid Calcium 11.3 H Ionized Calcium Phosphorus Magnesium Direct Bilirubin AST ALT Alkaline Phosphatase Lactate Dehydrogenase Troponin T C-Reactive Protein Total Protein Albumin Prealbumin Triglycerides Cholesterol LDL Cholesterol Direct HDL Cholesterol 25-OH Vitamin D Total PTH Intact Urine pH Urine WBC (Auto) Urine Creatinine Urine Total Protein Fluid Total Protein Vancomycin Trough Rheumatoid Factor Complement C4 Miscellaneous Test Crossmatch 02/13/17 02/13/17 02/13/17 05:00 05:28 12:03 WBC 11.9 H RBC 2.92 L Hgb 7.8 L Hct 25.2 L MCV MCH 27 L MCHC RDW 19.3 H Plt Count Lymph % (Auto) [place] % (Auto) Lymph # [place] # Baso # Seg Neutrophils % Seg Neuts % (Manual) Lymphocytes % (Manual) Monocytes % (Manual) Eosinophils % (Manual) Basophils % (Manual) Nucleated RBC % Seg Neutrophils # Seg Neutrophils # Man Lymphocytes # (Manual) Monocytes # (Manual) Eosinophils # (Manual) Basophils # (Manual) PT INR Fibrinogen dRVVT Confirm Interp Factor V Activity POC ABG pH POC ABG pCO2 POC ABG pO2 ABG pO2 ABG HCO3 ABG Base Excess ABG Hemoglobin Oxyhemoglobin Sodium Potassium Chloride Carbon Dioxide BUN Creatinine Glucose POC Glucose 124 H 160 H Lactic Acid Calcium Ionized Calcium Phosphorus Magnesium Direct Bilirubin AST ALT Alkaline Phosphatase Lactate Dehydrogenase Troponin T C-Reactive Protein Total Protein Albumin Prealbumin Triglycerides Cholesterol LDL Cholesterol Direct HDL Cholesterol 25-OH Vitamin D Total PTH Intact Urine pH Urine WBC (Auto) Urine Creatinine Urine Total Protein Fluid Total Protein Vancomycin Trough Rheumatoid Factor Complement C4 Miscellaneous Test Crossmatch 02/13/17 02/14/17 02/14/17 18:09 06:16 08:08 WBC 15.2 H RBC 2.97 L Hgb 8.1 L Hct 26.3 L MCV MCH MCHC RDW 19.3 H Plt Count Lymph % (Auto) [place] % (Auto) Lymph # [place] # Baso # Seg Neutrophils % Seg Neuts % (Manual) Lymphocytes % (Manual) Monocytes % (Manual) Eosinophils % (Manual) Basophils % (Manual) Nucleated RBC % Seg Neutrophils # Seg Neutrophils # Man Lymphocytes # (Manual) Monocytes # (Manual) Eosinophils # (Manual) Basophils # (Manual) PT INR Fibrinogen dRVVT Confirm Interp Factor V Activity POC ABG pH POC ABG pCO2 POC ABG pO2 ABG pO2 ABG HCO3 ABG Base Excess ABG Hemoglobin Oxyhemoglobin Sodium Potassium Chloride Carbon Dioxide BUN Creatinine Glucose POC Glucose 110 H 112 H Lactic Acid Calcium Ionized Calcium Phosphorus Magnesium Direct Bilirubin AST ALT Alkaline Phosphatase Lactate Dehydrogenase Troponin T C-Reactive Protein Total Protein Albumin Prealbumin Triglycerides Cholesterol LDL Cholesterol Direct HDL Cholesterol 25-OH Vitamin D Total PTH Intact Urine pH Urine WBC (Auto) Urine Creatinine Urine Total Protein Fluid Total Protein Vancomycin Trough Rheumatoid Factor Complement C4 Miscellaneous Test Crossmatch 02/14/17 02/14/17 02/15/17 08:08 17:41 04:15 WBC RBC Hgb Hct MCV MCH MCHC RDW Plt Count Lymph % (Auto) [place] % (Auto) Lymph # [place] # Baso # Seg Neutrophils % Seg Neuts % (Manual) Lymphocytes % (Manual) Monocytes % (Manual) Eosinophils % (Manual) Basophils % (Manual) Nucleated RBC % Seg Neutrophils # Seg Neutrophils # Man Lymphocytes # (Manual) Monocytes # (Manual) Eosinophils # (Manual) Basophils # (Manual) PT INR Fibrinogen dRVVT Confirm Interp Factor V Activity POC ABG pH POC ABG pCO2 POC ABG pO2 ABG pO2 ABG HCO3 ABG Base Excess ABG Hemoglobin Oxyhemoglobin Sodium Potassium Chloride Carbon Dioxide 18 L 21 L BUN 79 H 113 H Creatinine 2.1 H 2.8 H Glucose POC Glucose 118 H Lactic Acid Calcium 10.7 H Ionized Calcium Phosphorus 1.70 L D Magnesium 1.60 L Direct Bilirubin AST ALT Alkaline Phosphatase Lactate Dehydrogenase Troponin T C-Reactive Protein Total Protein Albumin Prealbumin Triglycerides Cholesterol LDL Cholesterol Direct HDL Cholesterol 25-OH Vitamin D Total PTH Intact Urine pH Urine WBC (Auto) Urine Creatinine Urine Total Protein Fluid Total Protein Vancomycin Trough Rheumatoid Factor Complement C4 Miscellaneous Test Crossmatch 02/15/17 02/15/17 02/15/17 06:06 11:31 17:52 WBC RBC Hgb Hct MCV MCH MCHC RDW Plt Count Lymph % (Auto) [place] % (Auto) Lymph # [place] # Baso # Seg Neutrophils % Seg Neuts % (Manual) Lymphocytes % (Manual) Monocytes % (Manual) Eosinophils % (Manual) Basophils % (Manual) Nucleated RBC % Seg Neutrophils # Seg Neutrophils # Man Lymphocytes # (Manual) Monocytes # (Manual) Eosinophils # (Manual) Basophils # (Manual) PT INR Fibrinogen dRVVT Confirm Interp Factor V Activity POC ABG pH POC ABG pCO2 POC ABG pO2 ABG pO2 ABG HCO3 ABG Base Excess ABG Hemoglobin Oxyhemoglobin Sodium Potassium Chloride Carbon Dioxide BUN Creatinine Glucose POC Glucose 115 H 129 H 201 H Lactic Acid Calcium Ionized Calcium Phosphorus Magnesium Direct Bilirubin AST ALT Alkaline Phosphatase Lactate Dehydrogenase Troponin T C-Reactive Protein Total Protein Albumin Prealbumin Triglycerides Cholesterol LDL Cholesterol Direct HDL Cholesterol 25-OH Vitamin D Total PTH Intact Urine pH Urine WBC (Auto) Urine Creatinine Urine Total Protein Fluid Total Protein Vancomycin Trough Rheumatoid Factor Complement C4 Miscellaneous Test Crossmatch 02/15/17 02/15/17 02/15/17 19:08 19:08 19:08 WBC RBC Hgb Hct MCV MCH MCHC RDW Plt Count Lymph % (Auto) [place] % (Auto) Lymph # [place] # Baso # Seg Neutrophils % Seg Neuts % (Manual) Lymphocytes % (Manual) Monocytes % (Manual) Eosinophils % (Manual) Basophils % (Manual) Nucleated RBC % Seg Neutrophils # Seg Neutrophils # Man Lymphocytes # (Manual) Monocytes # (Manual) Eosinophils # (Manual) Basophils # (Manual) PT INR Fibrinogen dRVVT Confirm Interp Factor V Activity POC ABG pH POC ABG pCO2 POC ABG pO2 ABG pO2 ABG HCO3 ABG Base Excess ABG Hemoglobin Oxyhemoglobin Sodium Potassium Chloride Carbon Dioxide BUN Creatinine Glucose POC Glucose Lactic Acid Calcium Ionized Calcium 6.0 H Phosphorus Magnesium Direct Bilirubin AST ALT Alkaline Phosphatase Lactate Dehydrogenase Troponin T C-Reactive Protein Total Protein Albumin Prealbumin Triglycerides Cholesterol LDL Cholesterol Direct HDL Cholesterol 25-OH Vitamin D Total 13 L PTH Intact 10.88 L Urine pH Urine WBC (Auto) Urine Creatinine Urine Total Protein Fluid Total Protein Vancomycin Trough Rheumatoid Factor Complement C4 Miscellaneous Test Crossmatch 02/16/17 02/16/17 02/16/17 05:12 06:00 12:39 WBC RBC Hgb Hct MCV MCH MCHC RDW Plt Count Lymph % (Auto) [place] % (Auto) Lymph # [place] # Baso # Seg Neutrophils % Seg Neuts % (Manual) Lymphocytes % (Manual) Monocytes % (Manual) Eosinophils % (Manual) Basophils % (Manual) Nucleated RBC % Seg Neutrophils # Seg Neutrophils # Man Lymphocytes # (Manual) Monocytes # (Manual) Eosinophils # (Manual) Basophils # (Manual) PT INR Fibrinogen dRVVT Confirm Interp Factor V Activity POC ABG pH POC ABG pCO2 POC ABG pO2 ABG pO2 ABG HCO3 ABG Base Excess ABG Hemoglobin Oxyhemoglobin Sodium Potassium Chloride Carbon Dioxide BUN 74 H Creatinine 1.7 H Glucose 102 H POC Glucose 125 H 109 H Lactic Acid Calcium Ionized Calcium Phosphorus 2.10 L D Magnesium Direct Bilirubin AST ALT Alkaline Phosphatase Lactate Dehydrogenase Troponin T C-Reactive Protein Total Protein Albumin Prealbumin Triglycerides Cholesterol LDL Cholesterol Direct HDL Cholesterol 25-OH Vitamin D Total PTH Intact Urine pH Urine WBC (Auto) Urine Creatinine Urine Total Protein Fluid Total Protein Vancomycin Trough Rheumatoid Factor Complement C4 Miscellaneous Test Crossmatch 02/16/17 02/16/17 02/17/17 17:31 23:57 05:30 WBC RBC Hgb Hct MCV MCH MCHC RDW Plt Count Lymph % (Auto) [place] % (Auto) Lymph # [place] # Baso # Seg Neutrophils % Seg Neuts % (Manual) Lymphocytes % (Manual) Monocytes % (Manual) Eosinophils % (Manual) Basophils % (Manual) Nucleated RBC % Seg Neutrophils # Seg Neutrophils # Man Lymphocytes # (Manual) Monocytes # (Manual) Eosinophils # (Manual) Basophils # (Manual) PT INR Fibrinogen dRVVT Confirm Interp Factor V Activity POC ABG pH POC ABG pCO2 POC ABG pO2 ABG pO2 ABG HCO3 ABG Base Excess ABG Hemoglobin Oxyhemoglobin Sodium Potassium Chloride Carbon Dioxide BUN Creatinine Glucose POC Glucose 106 H 127 H 122 H Lactic Acid Calcium Ionized Calcium Phosphorus Magnesium Direct Bilirubin AST ALT Alkaline Phosphatase Lactate Dehydrogenase Troponin T C-Reactive Protein Total Protein Albumin Prealbumin Triglycerides Cholesterol LDL Cholesterol Direct HDL Cholesterol 25-OH Vitamin D Total PTH Intact Urine pH Urine WBC (Auto) Urine Creatinine Urine Total Protein Fluid Total Protein Vancomycin Trough Rheumatoid Factor Complement C4 Miscellaneous Test Crossmatch 02/17/17 02/17/17 02/17/17 06:00 12:17 17:57 WBC RBC Hgb Hct MCV MCH MCHC RDW Plt Count Lymph % (Auto) [place] % (Auto) Lymph # [place] # Baso # Seg Neutrophils % Seg Neuts % (Manual) Lymphocytes % (Manual) Monocytes % (Manual) Eosinophils % (Manual) Basophils % (Manual) Nucleated RBC % Seg Neutrophils # Seg Neutrophils # Man Lymphocytes # (Manual) Monocytes # (Manual) Eosinophils # (Manual) Basophils # (Manual) PT INR Fibrinogen dRVVT Confirm Interp Factor V Activity POC ABG pH POC ABG pCO2 POC ABG pO2 ABG pO2 ABG HCO3 ABG Base Excess ABG Hemoglobin Oxyhemoglobin Sodium Potassium Chloride Carbon Dioxide BUN 94 H Creatinine 2.3 H Glucose 106 H POC Glucose 173 H 140 H Lactic Acid Calcium Ionized Calcium Phosphorus Magnesium Direct Bilirubin AST ALT Alkaline Phosphatase Lactate Dehydrogenase Troponin T C-Reactive Protein Total Protein Albumin Prealbumin Triglycerides Cholesterol LDL Cholesterol Direct HDL Cholesterol 25-OH Vitamin D Total PTH Intact Urine pH Urine WBC (Auto) Urine Creatinine Urine Total Protein Fluid Total Protein Vancomycin Trough Rheumatoid Factor Complement C4 Miscellaneous Test Crossmatch 02/18/17 02/18/17 02/18/17 00:20 05:30 06:14 WBC RBC Hgb Hct MCV MCH MCHC RDW Plt Count Lymph % (Auto) [place] % (Auto) Lymph # [place] # Baso # Seg Neutrophils % Seg Neuts % (Manual) Lymphocytes % (Manual) Monocytes % (Manual) Eosinophils % (Manual) Basophils % (Manual) Nucleated RBC % Seg Neutrophils # Seg Neutrophils # Man Lymphocytes # (Manual) Monocytes # (Manual) Eosinophils # (Manual) Basophils # (Manual) PT INR Fibrinogen dRVVT Confirm Interp Factor V Activity POC ABG pH POC ABG pCO2 POC ABG pO2 ABG pO2 ABG HCO3 ABG Base Excess ABG Hemoglobin Oxyhemoglobin Sodium 136 L Potassium Chloride 97.5 L Carbon Dioxide BUN 73 H Creatinine 1.9 H Glucose POC Glucose 132 H 106 H Lactic Acid Calcium Ionized Calcium Phosphorus Magnesium Direct Bilirubin AST ALT Alkaline Phosphatase Lactate Dehydrogenase Troponin T C-Reactive Protein Total Protein Albumin Prealbumin Triglycerides Cholesterol LDL Cholesterol Direct HDL Cholesterol 25-OH Vitamin D Total PTH Intact Urine pH Urine WBC (Auto) Urine Creatinine Urine Total Protein Fluid Total Protein Vancomycin Trough Rheumatoid Factor Complement C4 Miscellaneous Test Crossmatch 02/18/17 02/18/17 02/18/17 09:51 11:32 17:59 WBC 13.1 H RBC 2.77 L Hgb 7.6 L Hct 23.9 L MCV MCH MCHC RDW 19.0 H Plt Count Lymph % (Auto) [place] % (Auto) 11.1 H Lymph # [place] # 1.5 H Baso # Seg Neutrophils % Seg Neuts % (Manual) Lymphocytes % (Manual) Monocytes % (Manual) Eosinophils % (Manual) Basophils % (Manual) Nucleated RBC % Seg Neutrophils # 9.1 H Seg Neutrophils # Man Lymphocytes # (Manual) Monocytes # (Manual) Eosinophils # (Manual) Basophils # (Manual) PT INR Fibrinogen dRVVT Confirm Interp Factor V Activity POC ABG pH POC ABG pCO2 POC ABG pO2 ABG pO2 ABG HCO3 ABG Base Excess ABG Hemoglobin Oxyhemoglobin Sodium Potassium Chloride Carbon Dioxide BUN Creatinine Glucose POC Glucose 123 H 119 H Lactic Acid Calcium Ionized Calcium Phosphorus Magnesium Direct Bilirubin AST ALT Alkaline Phosphatase Lactate Dehydrogenase Troponin T C-Reactive Protein Total Protein Albumin Prealbumin Triglycerides Cholesterol LDL Cholesterol Direct HDL Cholesterol 25-OH Vitamin D Total PTH Intact Urine pH Urine WBC (Auto) Urine Creatinine Urine Total Protein Fluid Total Protein Vancomycin Trough Rheumatoid Factor Complement C4 Miscellaneous Test Crossmatch 02/18/17 02/19/17 02/19/17 23:47 05:36 09:45 WBC RBC Hgb Hct MCV MCH 27 L MCHC RDW 19.2 H Plt Count Lymph % (Auto) [place] % (Auto) Lymph # [place] # Baso # Seg Neutrophils % Seg Neuts % (Manual) Lymphocytes % (Manual) Monocytes % (Manual) Eosinophils % (Manual) Basophils % (Manual) Nucleated RBC % Seg Neutrophils # Seg Neutrophils # Man Lymphocytes # (Manual) Monocytes # (Manual) Eosinophils # (Manual) Basophils # (Manual) PT INR Fibrinogen dRVVT Confirm Interp Factor V Activity POC ABG pH POC ABG pCO2 POC ABG pO2 ABG pO2 ABG HCO3 ABG Base Excess ABG Hemoglobin Oxyhemoglobin Sodium Potassium Chloride Carbon Dioxide BUN Creatinine Glucose POC Glucose 110 H 121 H Lactic Acid Calcium Ionized Calcium Phosphorus Magnesium Direct Bilirubin AST ALT Alkaline Phosphatase Lactate Dehydrogenase Troponin T C-Reactive Protein Total Protein Albumin Prealbumin Triglycerides Cholesterol LDL Cholesterol Direct HDL Cholesterol 25-OH Vitamin D Total PTH Intact Urine pH Urine WBC (Auto) Urine Creatinine Urine Total Protein Fluid Total Protein Vancomycin Trough Rheumatoid Factor Complement C4 Miscellaneous Test Crossmatch 02/19/17 02/20/17 02/20/17 09:45 00:10 06:15 WBC RBC Hgb Hct MCV MCH MCHC RDW Plt Count Lymph % (Auto) [place] % (Auto) Lymph # [place] # Baso # Seg Neutrophils % Seg Neuts % (Manual) Lymphocytes % (Manual) Monocytes % (Manual) Eosinophils % (Manual) Basophils % (Manual) Nucleated RBC % Seg Neutrophils # Seg Neutrophils # Man Lymphocytes # (Manual) Monocytes # (Manual) Eosinophils # (Manual) Basophils # (Manual) PT INR Fibrinogen dRVVT Confirm Interp Factor V Activity POC ABG pH POC ABG pCO2 POC ABG pO2 ABG pO2 ABG HCO3 ABG Base Excess ABG Hemoglobin Oxyhemoglobin Sodium 136 L Potassium 5.1 H Chloride 97.6 L Carbon Dioxide 20 L 18 L BUN 110 H 135 H Creatinine 2.6 H 3.2 H Glucose 106 H 110 H POC Glucose 117 H Lactic Acid Calcium Ionized Calcium Phosphorus 4.70 H D 5.60 H Magnesium Direct Bilirubin AST ALT Alkaline Phosphatase Lactate Dehydrogenase Troponin T C-Reactive Protein Total Protein Albumin Prealbumin Triglycerides Cholesterol LDL Cholesterol Direct HDL Cholesterol 25-OH Vitamin D Total PTH Intact Urine pH Urine WBC (Auto) Urine Creatinine Urine Total Protein Fluid Total Protein Vancomycin Trough Rheumatoid Factor Complement C4 Miscellaneous Test Crossmatch 02/20/17 02/20/17 02/21/17 11:30 17:51 00:14 WBC RBC Hgb Hct MCV MCH MCHC RDW Plt Count Lymph % (Auto) [place] % (Auto) Lymph # [place] # Baso # Seg Neutrophils % Seg Neuts % (Manual) Lymphocytes % (Manual) Monocytes % (Manual) Eosinophils % (Manual) Basophils % (Manual) Nucleated RBC % Seg Neutrophils # Seg Neutrophils # Man Lymphocytes # (Manual) Monocytes # (Manual) Eosinophils # (Manual) Basophils # (Manual) PT INR Fibrinogen dRVVT Confirm Interp Factor V Activity POC ABG pH POC ABG pCO2 POC ABG pO2 ABG pO2 ABG HCO3 ABG Base Excess ABG Hemoglobin Oxyhemoglobin Sodium Potassium Chloride Carbon Dioxide BUN Creatinine Glucose POC Glucose 173 H 133 H 125 H Lactic Acid Calcium Ionized Calcium Phosphorus Magnesium Direct Bilirubin AST ALT Alkaline Phosphatase Lactate Dehydrogenase Troponin T C-Reactive Protein Total Protein Albumin Prealbumin Triglycerides Cholesterol LDL Cholesterol Direct HDL Cholesterol 25-OH Vitamin D Total PTH Intact Urine pH Urine WBC (Auto) Urine Creatinine Urine Total Protein Fluid Total Protein Vancomycin Trough Rheumatoid Factor Complement C4 Miscellaneous Test Crossmatch 02/21/17 02/21/17 02/21/17 04:09 05:03 11:58 WBC RBC Hgb Hct MCV MCH MCHC RDW Plt Count Lymph % (Auto) [place] % (Auto) Lymph # [place] # Baso # Seg Neutrophils % Seg Neuts % (Manual) Lymphocytes % (Manual) Monocytes % (Manual) Eosinophils % (Manual) Basophils % (Manual) Nucleated RBC % Seg Neutrophils # Seg Neutrophils # Man Lymphocytes # (Manual) Monocytes # (Manual) Eosinophils # (Manual) Basophils # (Manual) PT INR Fibrinogen dRVVT Confirm Interp Factor V Activity POC ABG pH POC ABG pCO2 POC ABG pO2 ABG pO2 ABG HCO3 ABG Base Excess ABG Hemoglobin Oxyhemoglobin Sodium 135 L Potassium Chloride Carbon Dioxide 20 L BUN 76 H Creatinine 2.0 H Glucose 125 H POC Glucose 134 H 139 H Lactic Acid Calcium Ionized Calcium Phosphorus Magnesium Direct Bilirubin AST ALT Alkaline Phosphatase Lactate Dehydrogenase Troponin T C-Reactive Protein Total Protein Albumin Prealbumin Triglycerides Cholesterol LDL Cholesterol Direct HDL Cholesterol 25-OH Vitamin D Total PTH Intact Urine pH Urine WBC (Auto) Urine Creatinine Urine Total Protein Fluid Total Protein Vancomycin Trough Rheumatoid Factor Complement C4 Miscellaneous Test Crossmatch 02/21/17 02/21/17 02/22/17 17:16 23:41 04:10 WBC RBC Hgb Hct MCV MCH MCHC RDW Plt Count Lymph % (Auto) [place] % (Auto) Lymph # [place] # Baso # Seg Neutrophils % Seg Neuts % (Manual) Lymphocytes % (Manual) Monocytes % (Manual) Eosinophils % (Manual) Basophils % (Manual) Nucleated RBC % Seg Neutrophils # Seg Neutrophils # Man Lymphocytes # (Manual) Monocytes # (Manual) Eosinophils # (Manual) Basophils # (Manual) PT INR Fibrinogen dRVVT Confirm Interp Factor V Activity POC ABG pH POC ABG pCO2 POC ABG pO2 ABG pO2 ABG HCO3 ABG Base Excess ABG Hemoglobin Oxyhemoglobin Sodium 135 L Potassium Chloride 97.7 L Carbon Dioxide 21 L BUN 101 H Creatinine 2.5 H Glucose 116 H POC Glucose 120 H 128 H Lactic Acid Calcium Ionized Calcium Phosphorus Magnesium Direct Bilirubin AST ALT Alkaline Phosphatase Lactate Dehydrogenase Troponin T C-Reactive Protein Total Protein Albumin 1.3 L Prealbumin Triglycerides Cholesterol LDL Cholesterol Direct HDL Cholesterol 25-OH Vitamin D Total PTH Intact Urine pH Urine WBC (Auto) Urine Creatinine Urine Total Protein Fluid Total Protein Vancomycin Trough Rheumatoid Factor Complement C4 Miscellaneous Test Crossmatch 02/22/17 02/22/17 02/22/17 06:03 11:38 18:19 WBC RBC Hgb Hct MCV MCH MCHC RDW Plt Count Lymph % (Auto) [place] % (Auto) Lymph # [place] # Baso # Seg Neutrophils % Seg Neuts % (Manual) Lymphocytes % (Manual) Monocytes % (Manual) Eosinophils % (Manual) Basophils % (Manual) Nucleated RBC % Seg Neutrophils # Seg Neutrophils # Man Lymphocytes # (Manual) Monocytes # (Manual) Eosinophils # (Manual) Basophils # (Manual) PT INR Fibrinogen dRVVT Confirm Interp Factor V Activity POC ABG pH POC ABG pCO2 POC ABG pO2 ABG pO2 ABG HCO3 ABG Base Excess ABG Hemoglobin Oxyhemoglobin Sodium Potassium Chloride Carbon Dioxide BUN Creatinine Glucose POC Glucose 126 H 147 H 121 H Lactic Acid Calcium Ionized Calcium Phosphorus Magnesium Direct Bilirubin AST ALT Alkaline Phosphatase Lactate Dehydrogenase Troponin T C-Reactive Protein Total Protein Albumin Prealbumin Triglycerides Cholesterol LDL Cholesterol Direct HDL Cholesterol 25-OH Vitamin D Total PTH Intact Urine pH Urine WBC (Auto) Urine Creatinine Urine Total Protein Fluid Total Protein Vancomycin Trough Rheumatoid Factor Complement C4 Miscellaneous Test Crossmatch 02/23/17 02/23/17 02/23/17 05:00 05:46 12:27 WBC RBC Hgb Hct MCV MCH MCHC RDW Plt Count Lymph % (Auto) [place] % (Auto) Lymph # [place] # Baso # Seg Neutrophils % Seg Neuts % (Manual) Lymphocytes % (Manual) Monocytes % (Manual) Eosinophils % (Manual) Basophils % (Manual) Nucleated RBC % Seg Neutrophils # Seg Neutrophils # Man Lymphocytes # (Manual) Monocytes # (Manual) Eosinophils # (Manual) Basophils # (Manual) PT INR Fibrinogen dRVVT Confirm Interp Factor V Activity POC ABG pH POC ABG pCO2 POC ABG pO2 ABG pO2 ABG HCO3 ABG Base Excess ABG Hemoglobin Oxyhemoglobin Sodium 136 L Potassium Chloride 97.1 L Carbon Dioxide BUN 50 H Creatinine 1.5 H Glucose POC Glucose 110 H 115 H Lactic Acid Calcium 8.1 L Ionized Calcium Phosphorus 1.90 L D Magnesium Direct Bilirubin AST ALT Alkaline Phosphatase Lactate Dehydrogenase Troponin T C-Reactive Protein Total Protein Albumin Prealbumin Triglycerides Cholesterol LDL Cholesterol Direct HDL Cholesterol 25-OH Vitamin D Total PTH Intact Urine pH Urine WBC (Auto) Urine Creatinine Urine Total Protein Fluid Total Protein Vancomycin Trough Rheumatoid Factor Complement C4 Miscellaneous Test Crossmatch 02/23/17 02/23/17 02/24/17 18:02 23:18 05:04 WBC RBC Hgb Hct MCV MCH MCHC RDW Plt Count Lymph % (Auto) [place] % (Auto) Lymph # [place] # Baso # Seg Neutrophils % Seg Neuts % (Manual) Lymphocytes % (Manual) Monocytes % (Manual) Eosinophils % (Manual) Basophils % (Manual) Nucleated RBC % Seg Neutrophils # Seg Neutrophils # Man Lymphocytes # (Manual) Monocytes # (Manual) Eosinophils # (Manual) Basophils # (Manual) PT INR Fibrinogen dRVVT Confirm Interp Factor V Activity POC ABG pH POC ABG pCO2 POC ABG pO2 ABG pO2 ABG HCO3 ABG Base Excess ABG Hemoglobin Oxyhemoglobin Sodium Potassium Chloride Carbon Dioxide BUN Creatinine Glucose POC Glucose 111 H 126 H 121 H Lactic Acid Calcium Ionized Calcium Phosphorus Magnesium Direct Bilirubin AST ALT Alkaline Phosphatase Lactate Dehydrogenase Troponin T C-Reactive Protein Total Protein Albumin Prealbumin Triglycerides Cholesterol LDL Cholesterol Direct HDL Cholesterol 25-OH Vitamin D Total PTH Intact Urine pH Urine WBC (Auto) Urine Creatinine Urine Total Protein Fluid Total Protein Vancomycin Trough Rheumatoid Factor Complement C4 Miscellaneous Test Crossmatch 02/24/17 02/24/17 02/24/17 05:20 10:05 11:34 WBC RBC 2.95 L Hgb 8.4 L Hct 25.7 L MCV MCH MCHC RDW 20.8 H Plt Count Lymph % (Auto) [place] % (Auto) Lymph # [place] # Baso # Seg Neutrophils % 71.8 H Seg Neuts % (Manual) Lymphocytes % (Manual) Monocytes % (Manual) Eosinophils % (Manual) Basophils % (Manual) Nucleated RBC % Seg Neutrophils # Seg Neutrophils # Man Lymphocytes # (Manual) Monocytes # (Manual) Eosinophils # (Manual) Basophils # (Manual) PT INR Fibrinogen dRVVT Confirm Interp Factor V Activity POC ABG pH POC ABG pCO2 POC ABG pO2 ABG pO2 ABG HCO3 ABG Base Excess ABG Hemoglobin Oxyhemoglobin Sodium 136 L Potassium Chloride 95.5 L Carbon Dioxide BUN 76 H Creatinine 2.2 H Glucose 109 H POC Glucose 123 H Lactic Acid Calcium Ionized Calcium Phosphorus Magnesium Direct Bilirubin AST ALT Alkaline Phosphatase Lactate Dehydrogenase Troponin T C-Reactive Protein Total Protein Albumin Prealbumin Triglycerides Cholesterol LDL Cholesterol Direct HDL Cholesterol 25-OH Vitamin D Total PTH Intact Urine pH Urine WBC (Auto) Urine Creatinine Urine Total Protein Fluid Total Protein Vancomycin Trough Rheumatoid Factor Complement C4 Miscellaneous Test Crossmatch 02/24/17 02/24/17 02/25/17 17:43 23:02 05:00 WBC RBC Hgb Hct MCV MCH MCHC RDW Plt Count Lymph % (Auto) [place] % (Auto) Lymph # [place] # Baso # Seg Neutrophils % Seg Neuts % (Manual) Lymphocytes % (Manual) Monocytes % (Manual) Eosinophils % (Manual) Basophils % (Manual) Nucleated RBC % Seg Neutrophils # Seg Neutrophils # Man Lymphocytes # (Manual) Monocytes # (Manual) Eosinophils # (Manual) Basophils # (Manual) PT INR Fibrinogen dRVVT Confirm Interp Factor V Activity POC ABG pH POC ABG pCO2 POC ABG pO2 ABG pO2 ABG HCO3 ABG Base Excess ABG Hemoglobin Oxyhemoglobin Sodium Potassium Chloride 96.8 L Carbon Dioxide BUN 94 H Creatinine 2.8 H Glucose 118 H POC Glucose 128 H 144 H Lactic Acid Calcium Ionized Calcium Phosphorus Magnesium Direct Bilirubin AST ALT Alkaline Phosphatase Lactate Dehydrogenase Troponin T C-Reactive Protein Total Protein Albumin Prealbumin Triglycerides Cholesterol LDL Cholesterol Direct HDL Cholesterol 25-OH Vitamin D Total PTH Intact Urine pH Urine WBC (Auto) Urine Creatinine Urine Total Protein Fluid Total Protein Vancomycin Trough Rheumatoid Factor Complement C4 Miscellaneous Test Crossmatch 02/25/17 02/25/17 02/25/17 05:32 11:44 18:18 WBC RBC Hgb Hct MCV MCH MCHC RDW Plt Count Lymph % (Auto) [place] % (Auto) Lymph # [place] # Baso # Seg Neutrophils % Seg Neuts % (Manual) Lymphocytes % (Manual) Monocytes % (Manual) Eosinophils % (Manual) Basophils % (Manual) Nucleated RBC % Seg Neutrophils # Seg Neutrophils # Man Lymphocytes # (Manual) Monocytes # (Manual) Eosinophils # (Manual) Basophils # (Manual) PT INR Fibrinogen dRVVT Confirm Interp Factor V Activity POC ABG pH POC ABG pCO2 POC ABG pO2 ABG pO2 ABG HCO3 ABG Base Excess ABG Hemoglobin Oxyhemoglobin Sodium Potassium Chloride Carbon Dioxide BUN Creatinine Glucose POC Glucose 118 H 106 H 210 H Lactic Acid Calcium Ionized Calcium Phosphorus Magnesium Direct Bilirubin AST ALT Alkaline Phosphatase Lactate Dehydrogenase Troponin T C-Reactive Protein Total Protein Albumin Prealbumin Triglycerides Cholesterol LDL Cholesterol Direct HDL Cholesterol 25-OH Vitamin D Total PTH Intact Urine pH Urine WBC (Auto) Urine Creatinine Urine Total Protein Fluid Total Protein Vancomycin Trough Rheumatoid Factor Complement C4 Miscellaneous Test Crossmatch 02/26/17 02/26/17 02/26/17 00:07 05:14 12:07 WBC RBC Hgb Hct MCV MCH MCHC RDW Plt Count Lymph % (Auto) [place] % (Auto) Lymph # [place] # Baso # Seg Neutrophils % Seg Neuts % (Manual) Lymphocytes % (Manual) Monocytes % (Manual) Eosinophils % (Manual) Basophils % (Manual) Nucleated RBC % Seg Neutrophils # Seg Neutrophils # Man Lymphocytes # (Manual) Monocytes # (Manual) Eosinophils # (Manual) Basophils # (Manual) PT INR Fibrinogen dRVVT Confirm Interp Factor V Activity POC ABG pH POC ABG pCO2 POC ABG pO2 ABG pO2 ABG HCO3 ABG Base Excess ABG Hemoglobin Oxyhemoglobin Sodium Potassium Chloride Carbon Dioxide BUN Creatinine Glucose POC Glucose 136 H 142 H 132 H Lactic Acid Calcium Ionized Calcium Phosphorus Magnesium Direct Bilirubin AST ALT Alkaline Phosphatase Lactate Dehydrogenase Troponin T C-Reactive Protein Total Protein Albumin Prealbumin Triglycerides Cholesterol LDL Cholesterol Direct HDL Cholesterol 25-OH Vitamin D Total PTH Intact Urine pH Urine WBC (Auto) Urine Creatinine Urine Total Protein Fluid Total Protein Vancomycin Trough Rheumatoid Factor Complement C4 Miscellaneous Test Crossmatch 02/26/17 02/26/17 02/27/17 18:35 23:54 06:25 WBC RBC Hgb Hct MCV MCH MCHC RDW Plt Count Lymph % (Auto) [place] % (Auto) Lymph # [place] # Baso # Seg Neutrophils % Seg Neuts % (Manual) Lymphocytes % (Manual) Monocytes % (Manual) Eosinophils % (Manual) Basophils % (Manual) Nucleated RBC % Seg Neutrophils # Seg Neutrophils # Man Lymphocytes # (Manual) Monocytes # (Manual) Eosinophils # (Manual) Basophils # (Manual) PT INR Fibrinogen dRVVT Confirm Interp Factor V Activity POC ABG pH POC ABG pCO2 POC ABG pO2 ABG pO2 ABG HCO3 ABG Base Excess ABG Hemoglobin Oxyhemoglobin Sodium Potassium Chloride Carbon Dioxide BUN Creatinine Glucose POC Glucose 155 H 150 H 138 H Lactic Acid Calcium Ionized Calcium Phosphorus Magnesium Direct Bilirubin AST ALT Alkaline Phosphatase Lactate Dehydrogenase Troponin T C-Reactive Protein Total Protein Albumin Prealbumin Triglycerides Cholesterol LDL Cholesterol Direct HDL Cholesterol 25-OH Vitamin D Total PTH Intact Urine pH Urine WBC (Auto) Urine Creatinine Urine Total Protein Fluid Total Protein Vancomycin Trough Rheumatoid Factor Complement C4 Miscellaneous Test Crossmatch 02/27/17 02/27/17 02/27/17 08:50 11:50 17:38 WBC RBC Hgb Hct MCV MCH MCHC RDW Plt Count Lymph % (Auto) [place] % (Auto) Lymph # [place] # Baso # Seg Neutrophils % Seg Neuts % (Manual) Lymphocytes % (Manual) Monocytes % (Manual) Eosinophils % (Manual) Basophils % (Manual) Nucleated RBC % Seg Neutrophils # Seg Neutrophils # Man Lymphocytes # (Manual) Monocytes # (Manual) Eosinophils # (Manual) Basophils # (Manual) PT INR Fibrinogen dRVVT Confirm Interp Factor V Activity POC ABG pH POC ABG pCO2 POC ABG pO2 ABG pO2 ABG HCO3 ABG Base Excess ABG Hemoglobin Oxyhemoglobin Sodium Potassium 3.2 L Chloride Carbon Dioxide BUN 95 H Creatinine 2.7 H Glucose 179 H POC Glucose 150 H 133 H Lactic Acid Calcium Ionized Calcium Phosphorus Magnesium Direct Bilirubin AST ALT Alkaline Phosphatase Lactate Dehydrogenase Troponin T C-Reactive Protein Total Protein Albumin Prealbumin Triglycerides Cholesterol LDL Cholesterol Direct HDL Cholesterol 25-OH Vitamin D Total PTH Intact Urine pH Urine WBC (Auto) Urine Creatinine Urine Total Protein Fluid Total Protein Vancomycin Trough Rheumatoid Factor Complement C4 Miscellaneous Test Crossmatch 02/27/17 02/28/17 02/28/17 23:55 05:23 06:10 WBC RBC Hgb Hct MCV MCH MCHC RDW Plt Count Lymph % (Auto) [place] % (Auto) Lymph # [place] # Baso # Seg Neutrophils % Seg Neuts % (Manual) Lymphocytes % (Manual) Monocytes % (Manual) Eosinophils % (Manual) Basophils % (Manual) Nucleated RBC % Seg Neutrophils # Seg Neutrophils # Man Lymphocytes # (Manual) Monocytes # (Manual) Eosinophils # (Manual) Basophils # (Manual) PT INR Fibrinogen dRVVT Confirm Interp Factor V Activity POC ABG pH POC ABG pCO2 POC ABG pO2 ABG pO2 ABG HCO3 ABG Base Excess ABG Hemoglobin Oxyhemoglobin Sodium 134 L Potassium 3.0 L Chloride 94.9 L Carbon Dioxide BUN 53 H Creatinine 1.9 H Glucose 138 H POC Glucose 134 H 164 H Lactic Acid Calcium Ionized Calcium Phosphorus 2.00 L D Magnesium Direct Bilirubin AST ALT Alkaline Phosphatase Lactate Dehydrogenase Troponin T C-Reactive Protein Total Protein Albumin Prealbumin Triglycerides Cholesterol LDL Cholesterol Direct HDL Cholesterol 25-OH Vitamin D Total PTH Intact Urine pH Urine WBC (Auto) Urine Creatinine Urine Total Protein Fluid Total Protein Vancomycin Trough Rheumatoid Factor Complement C4 Miscellaneous Test Crossmatch 02/28/17 02/28/17 02/28/17 12:18 17:54 23:47 WBC RBC Hgb Hct MCV MCH MCHC RDW Plt Count Lymph % (Auto) [place] % (Auto) Lymph # [place] # Baso # Seg Neutrophils % Seg Neuts % (Manual) Lymphocytes % (Manual) Monocytes % (Manual) Eosinophils % (Manual) Basophils % (Manual) Nucleated RBC % Seg Neutrophils # Seg Neutrophils # Man Lymphocytes # (Manual) Monocytes # (Manual) Eosinophils # (Manual) Basophils # (Manual) PT INR Fibrinogen dRVVT Confirm Interp Factor V Activity POC ABG pH POC ABG pCO2 POC ABG pO2 ABG pO2 ABG HCO3 ABG Base Excess ABG Hemoglobin Oxyhemoglobin Sodium Potassium Chloride Carbon Dioxide BUN Creatinine Glucose POC Glucose 135 H 140 H 144 H Lactic Acid Calcium Ionized Calcium Phosphorus Magnesium Direct Bilirubin AST ALT Alkaline Phosphatase Lactate Dehydrogenase Troponin T C-Reactive Protein Total Protein Albumin Prealbumin Triglycerides Cholesterol LDL Cholesterol Direct HDL Cholesterol 25-OH Vitamin D Total PTH Intact Urine pH Urine WBC (Auto) Urine Creatinine Urine Total Protein Fluid Total Protein Vancomycin Trough Rheumatoid Factor Complement C4 Miscellaneous Test Crossmatch 03/01/17 03/01/17 03/01/17 04:00 12:02 17:13 WBC RBC Hgb Hct MCV MCH MCHC RDW Plt Count Lymph % (Auto) [place] % (Auto) Lymph # [place] # Baso # Seg Neutrophils % Seg Neuts % (Manual) Lymphocytes % (Manual) Monocytes % (Manual) Eosinophils % (Manual) Basophils % (Manual) Nucleated RBC % Seg Neutrophils # Seg Neutrophils # Man Lymphocytes # (Manual) Monocytes # (Manual) Eosinophils # (Manual) Basophils # (Manual) PT INR Fibrinogen dRVVT Confirm Interp Factor V Activity POC ABG pH POC ABG pCO2 POC ABG pO2 ABG pO2 ABG HCO3 ABG Base Excess ABG Hemoglobin Oxyhemoglobin Sodium Potassium 3.0 L Chloride 97.0 L Carbon Dioxide BUN 81 H Creatinine 2.6 H Glucose 121 H POC Glucose 165 H 126 H Lactic Acid Calcium Ionized Calcium Phosphorus Magnesium Direct Bilirubin AST ALT Alkaline Phosphatase Lactate Dehydrogenase Troponin T C-Reactive Protein Total Protein Albumin Prealbumin Triglycerides Cholesterol LDL Cholesterol Direct HDL Cholesterol 25-OH Vitamin D Total PTH Intact Urine pH Urine WBC (Auto) Urine Creatinine Urine Total Protein Fluid Total Protein Vancomycin Trough Rheumatoid Factor Complement C4 Miscellaneous Test Crossmatch 03/02/17 03/02/17 03/02/17 00:10 03:05 05:20 WBC RBC Hgb Hct MCV MCH MCHC RDW Plt Count Lymph % (Auto) [place] % (Auto) Lymph # [place] # Baso # Seg Neutrophils % Seg Neuts % (Manual) Lymphocytes % (Manual) Monocytes % (Manual) Eosinophils % (Manual) Basophils % (Manual) Nucleated RBC % Seg Neutrophils # Seg Neutrophils # Man Lymphocytes # (Manual) Monocytes # (Manual) Eosinophils # (Manual) Basophils # (Manual) PT INR Fibrinogen dRVVT Confirm Interp Factor V Activity POC ABG pH POC ABG pCO2 POC ABG pO2 ABG pO2 ABG HCO3 ABG Base Excess ABG Hemoglobin Oxyhemoglobin Sodium Potassium 3.0 L Chloride Carbon Dioxide BUN 41 H Creatinine 1.6 H Glucose 130 H POC Glucose 129 H 173 H Lactic Acid Calcium Ionized Calcium Phosphorus 1.70 L D Magnesium 1.40 L Direct Bilirubin AST ALT Alkaline Phosphatase Lactate Dehydrogenase Troponin T C-Reactive Protein Total Protein Albumin Prealbumin Triglycerides Cholesterol LDL Cholesterol Direct HDL Cholesterol 25-OH Vitamin D Total PTH Intact Urine pH Urine WBC (Auto) Urine Creatinine Urine Total Protein Fluid Total Protein Vancomycin Trough Rheumatoid Factor Complement C4 Miscellaneous Test Crossmatch 03/02/17 03/02/17 03/02/17 11:49 16:38 23:46 WBC RBC Hgb Hct MCV MCH MCHC RDW Plt Count Lymph % (Auto) [place] % (Auto) Lymph # [place] # Baso # Seg Neutrophils % Seg Neuts % (Manual) Lymphocytes % (Manual) Monocytes % (Manual) Eosinophils % (Manual) Basophils % (Manual) Nucleated RBC % Seg Neutrophils # Seg Neutrophils # Man Lymphocytes # (Manual) Monocytes # (Manual) Eosinophils # (Manual) Basophils # (Manual) PT INR Fibrinogen dRVVT Confirm Interp Factor V Activity POC ABG pH POC ABG pCO2 POC ABG pO2 ABG pO2 ABG HCO3 ABG Base Excess ABG Hemoglobin Oxyhemoglobin Sodium Potassium Chloride Carbon Dioxide BUN Creatinine Glucose POC Glucose 129 H 141 H 119 H Lactic Acid Calcium Ionized Calcium Phosphorus Magnesium Direct Bilirubin AST ALT Alkaline Phosphatase Lactate Dehydrogenase Troponin T C-Reactive Protein Total Protein Albumin Prealbumin Triglycerides Cholesterol LDL Cholesterol Direct HDL Cholesterol 25-OH Vitamin D Total PTH Intact Urine pH Urine WBC (Auto) Urine Creatinine Urine Total Protein Fluid Total Protein Vancomycin Trough Rheumatoid Factor Complement C4 Miscellaneous Test Crossmatch 03/03/17 03/03/17 03/03/17 04:00 11:59 18:08 WBC RBC Hgb Hct MCV MCH MCHC RDW Plt Count Lymph % (Auto) [place] % (Auto) Lymph # [place] # Baso # Seg Neutrophils % Seg Neuts % (Manual) Lymphocytes % (Manual) Monocytes % (Manual) Eosinophils % (Manual) Basophils % (Manual) Nucleated RBC % Seg Neutrophils # Seg Neutrophils # Man Lymphocytes # (Manual) Monocytes # (Manual) Eosinophils # (Manual) Basophils # (Manual) PT INR Fibrinogen dRVVT Confirm Interp Factor V Activity POC ABG pH POC ABG pCO2 POC ABG pO2 ABG pO2 ABG HCO3 ABG Base Excess ABG Hemoglobin Oxyhemoglobin Sodium Potassium Chloride Carbon Dioxide BUN 70 H Creatinine 2.3 H Glucose POC Glucose 125 H 131 H Lactic Acid Calcium Ionized Calcium Phosphorus Magnesium Direct Bilirubin AST ALT Alkaline Phosphatase Lactate Dehydrogenase Troponin T C-Reactive Protein Total Protein Albumin Prealbumin Triglycerides Cholesterol LDL Cholesterol Direct HDL Cholesterol 25-OH Vitamin D Total PTH Intact Urine pH Urine WBC (Auto) Urine Creatinine Urine Total Protein Fluid Total Protein Vancomycin Trough Rheumatoid Factor Complement C4 Miscellaneous Test Crossmatch 03/03/17 03/03/17 03/04/17 20:17 23:43 05:21 WBC RBC Hgb Hct MCV MCH MCHC RDW Plt Count Lymph % (Auto) [place] % (Auto) Lymph # [place] # Baso # Seg Neutrophils % Seg Neuts % (Manual) Lymphocytes % (Manual) Monocytes % (Manual) Eosinophils % (Manual) Basophils % (Manual) Nucleated RBC % Seg Neutrophils # Seg Neutrophils # Man Lymphocytes # (Manual) Monocytes # (Manual) Eosinophils # (Manual) Basophils # (Manual) PT INR Fibrinogen dRVVT Confirm Interp Factor V Activity POC ABG pH 7.518 H POC ABG pCO2 28.8 L POC ABG pO2 61 L ABG pO2 ABG HCO3 ABG Base Excess ABG Hemoglobin Oxyhemoglobin Sodium Potassium Chloride Carbon Dioxide BUN Creatinine Glucose POC Glucose 122 H 130 H Lactic Acid Calcium Ionized Calcium Phosphorus Magnesium Direct Bilirubin AST ALT Alkaline Phosphatase Lactate Dehydrogenase Troponin T C-Reactive Protein Total Protein Albumin Prealbumin Triglycerides Cholesterol LDL Cholesterol Direct HDL Cholesterol 25-OH Vitamin D Total PTH Intact Urine pH Urine WBC (Auto) Urine Creatinine Urine Total Protein Fluid Total Protein Vancomycin Trough Rheumatoid Factor Complement C4 Miscellaneous Test Crossmatch 03/04/17 03/05/17 03/06/17 06:10 06:15 03:52 WBC RBC Hgb Hct MCV MCH MCHC RDW Plt Count Lymph % (Auto) [place] % (Auto) Lymph # [place] # Baso # Seg Neutrophils % Seg Neuts % (Manual) Lymphocytes % (Manual) Monocytes % (Manual) Eosinophils % (Manual) Basophils % (Manual) Nucleated RBC % Seg Neutrophils # Seg Neutrophils # Man Lymphocytes # (Manual) Monocytes # (Manual) Eosinophils # (Manual) Basophils # (Manual) PT INR Fibrinogen dRVVT Confirm Interp Factor V Activity POC ABG pH POC ABG pCO2 POC ABG pO2 ABG pO2 ABG HCO3 ABG Base Excess ABG Hemoglobin Oxyhemoglobin Sodium 135 L 136 L Potassium 5.2 H 5.9 H Chloride 95.8 L 97.7 L 96.0 L Carbon Dioxide 21 L 21 L BUN 40 H 56 H 70 H Creatinine 1.7 H 2.4 H 3.0 H Glucose 118 H POC Glucose Lactic Acid Calcium Ionized Calcium Phosphorus 4.80 H D 6.00 H D Magnesium 2.60 H Direct Bilirubin AST ALT Alkaline Phosphatase 165 H Lactate Dehydrogenase Troponin T C-Reactive Protein Total Protein Albumin 1.5 L Prealbumin Triglycerides Cholesterol LDL Cholesterol Direct HDL Cholesterol 25-OH Vitamin D Total PTH Intact Urine pH Urine WBC (Auto) Urine Creatinine Urine Total Protein Fluid Total Protein Vancomycin Trough Rheumatoid Factor Complement C4 Miscellaneous Test Crossmatch 03/06/17 03/06/17 03/06/17 11:19 18:40 23:39 WBC RBC Hgb Hct MCV MCH MCHC RDW Plt Count Lymph % (Auto) [place] % (Auto) Lymph # [place] # Baso # Seg Neutrophils % Seg Neuts % (Manual) Lymphocytes % (Manual) Monocytes % (Manual) Eosinophils % (Manual) Basophils % (Manual) Nucleated RBC % Seg Neutrophils # Seg Neutrophils # Man Lymphocytes # (Manual) Monocytes # (Manual) Eosinophils # (Manual) Basophils # (Manual) PT INR Fibrinogen dRVVT Confirm Interp Factor V Activity POC ABG pH POC ABG pCO2 POC ABG pO2 ABG pO2 ABG HCO3 ABG Base Excess ABG Hemoglobin Oxyhemoglobin Sodium Potassium Chloride Carbon Dioxide BUN Creatinine Glucose POC Glucose 108 H 110 H 156 H Lactic Acid Calcium Ionized Calcium Phosphorus Magnesium Direct Bilirubin AST ALT Alkaline Phosphatase Lactate Dehydrogenase Troponin T C-Reactive Protein Total Protein Albumin Prealbumin Triglycerides Cholesterol LDL Cholesterol Direct HDL Cholesterol 25-OH Vitamin D Total PTH Intact Urine pH Urine WBC (Auto) Urine Creatinine Urine Total Protein Fluid Total Protein Vancomycin Trough Rheumatoid Factor Complement C4 Miscellaneous Test Crossmatch 03/07/17 03/07/17 03/07/17 06:04 11:56 23:31 WBC RBC Hgb Hct MCV MCH MCHC RDW Plt Count Lymph % (Auto) [place] % (Auto) Lymph # [place] # Baso # Seg Neutrophils % Seg Neuts % (Manual) Lymphocytes % (Manual) Monocytes % (Manual) Eosinophils % (Manual) Basophils % (Manual) Nucleated RBC % Seg Neutrophils # Seg Neutrophils # Man Lymphocytes # (Manual) Monocytes # (Manual) Eosinophils # (Manual) Basophils # (Manual) PT INR Fibrinogen dRVVT Confirm Interp Factor V Activity POC ABG pH POC ABG pCO2 POC ABG pO2 ABG pO2 ABG HCO3 ABG Base Excess ABG Hemoglobin Oxyhemoglobin Sodium Potassium Chloride 97.5 L Carbon Dioxide BUN 28 H Creatinine 1.5 H Glucose POC Glucose 106 H 131 H Lactic Acid Calcium 7.9 L Ionized Calcium Phosphorus Magnesium Direct Bilirubin AST ALT Alkaline Phosphatase Lactate Dehydrogenase Troponin T C-Reactive Protein Total Protein Albumin Prealbumin Triglycerides Cholesterol LDL Cholesterol Direct HDL Cholesterol 25-OH Vitamin D Total PTH Intact Urine pH Urine WBC (Auto) Urine Creatinine Urine Total Protein Fluid Total Protein Vancomycin Trough Rheumatoid Factor Complement C4 Miscellaneous Test Crossmatch 03/08/17 03/08/17 03/08/17 05:15 05:38 11:50 WBC RBC Hgb Hct MCV MCH MCHC RDW Plt Count Lymph % (Auto) [place] % (Auto) Lymph # [place] # Baso # Seg Neutrophils % Seg Neuts % (Manual) Lymphocytes % (Manual) Monocytes % (Manual) Eosinophils % (Manual) Basophils % (Manual) Nucleated RBC % Seg Neutrophils # Seg Neutrophils # Man Lymphocytes # (Manual) Monocytes # (Manual) Eosinophils # (Manual) Basophils # (Manual) PT INR Fibrinogen dRVVT Confirm Interp Factor V Activity POC ABG pH POC ABG pCO2 POC ABG pO2 ABG pO2 ABG HCO3 ABG Base Excess ABG Hemoglobin Oxyhemoglobin Sodium 135 L Potassium Chloride 96.6 L Carbon Dioxide 20 L BUN 46 H Creatinine 2.3 H D Glucose 117 H POC Glucose 156 H 131 H Lactic Acid Calcium Ionized Calcium Phosphorus Magnesium Direct Bilirubin AST ALT Alkaline Phosphatase Lactate Dehydrogenase Troponin T C-Reactive Protein Total Protein Albumin Prealbumin Triglycerides Cholesterol LDL Cholesterol Direct HDL Cholesterol 25-OH Vitamin D Total PTH Intact Urine pH Urine WBC (Auto) Urine Creatinine Urine Total Protein Fluid Total Protein Vancomycin Trough Rheumatoid Factor Complement C4 Miscellaneous Test Crossmatch 03/08/17 03/09/17 03/09/17 23:34 04:42 05:20 WBC RBC Hgb Hct MCV MCH MCHC RDW Plt Count Lymph % (Auto) [place] % (Auto) Lymph # [place] # Baso # Seg Neutrophils % Seg Neuts % (Manual) Lymphocytes % (Manual) Monocytes % (Manual) Eosinophils % (Manual) Basophils % (Manual) Nucleated RBC % Seg Neutrophils # Seg Neutrophils # Man Lymphocytes # (Manual) Monocytes # (Manual) Eosinophils # (Manual) Basophils # (Manual) PT INR Fibrinogen dRVVT Confirm Interp Factor V Activity POC ABG pH POC ABG pCO2 POC ABG pO2 ABG pO2 ABG HCO3 ABG Base Excess ABG Hemoglobin Oxyhemoglobin Sodium Potassium 3.2 L Chloride Carbon Dioxide BUN 30 H Creatinine 1.7 H Glucose 112 H POC Glucose 125 H 128 H Lactic Acid Calcium 8.2 L Ionized Calcium Phosphorus 1.80 L D Magnesium 1.40 L Direct Bilirubin AST ALT Alkaline Phosphatase Lactate Dehydrogenase Troponin T C-Reactive Protein Total Protein Albumin Prealbumin Triglycerides Cholesterol LDL Cholesterol Direct HDL Cholesterol 25-OH Vitamin D Total PTH Intact Urine pH Urine WBC (Auto) Urine Creatinine Urine Total Protein Fluid Total Protein Vancomycin Trough Rheumatoid Factor Complement C4 Miscellaneous Test Crossmatch 03/09/17 03/09/17 03/10/17 11:48 17:38 00:08 WBC RBC Hgb Hct MCV MCH MCHC RDW Plt Count Lymph % (Auto) [place] % (Auto) Lymph # [place] # Baso # Seg Neutrophils % Seg Neuts % (Manual) Lymphocytes % (Manual) Monocytes % (Manual) Eosinophils % (Manual) Basophils % (Manual) Nucleated RBC % Seg Neutrophils # Seg Neutrophils # Man Lymphocytes # (Manual) Monocytes # (Manual) Eosinophils # (Manual) Basophils # (Manual) PT INR Fibrinogen dRVVT Confirm Interp Factor V Activity POC ABG pH POC ABG pCO2 POC ABG pO2 ABG pO2 ABG HCO3 ABG Base Excess ABG Hemoglobin Oxyhemoglobin Sodium Potassium Chloride Carbon Dioxide BUN Creatinine Glucose POC Glucose 146 H 140 H 137 H Lactic Acid Calcium Ionized Calcium Phosphorus Magnesium Direct Bilirubin AST ALT Alkaline Phosphatase Lactate Dehydrogenase Troponin T C-Reactive Protein Total Protein Albumin Prealbumin Triglycerides Cholesterol LDL Cholesterol Direct HDL Cholesterol 25-OH Vitamin D Total PTH Intact Urine pH Urine WBC (Auto) Urine Creatinine Urine Total Protein Fluid Total Protein Vancomycin Trough Rheumatoid Factor Complement C4 Miscellaneous Test Crossmatch 03/10/17 03/10/17 03/10/17 04:46 06:37 11:22 WBC RBC Hgb Hct MCV MCH MCHC RDW Plt Count Lymph % (Auto) [place] % (Auto) Lymph # [place] # Baso # Seg Neutrophils % Seg Neuts % (Manual) Lymphocytes % (Manual) Monocytes % (Manual) Eosinophils % (Manual) Basophils % (Manual) Nucleated RBC % Seg Neutrophils # Seg Neutrophils # Man Lymphocytes # (Manual) Monocytes # (Manual) Eosinophils # (Manual) Basophils # (Manual) PT INR Fibrinogen dRVVT Confirm Interp Factor V Activity POC ABG pH POC ABG pCO2 POC ABG pO2 ABG pO2 ABG HCO3 ABG Base Excess ABG Hemoglobin Oxyhemoglobin Sodium 135 L Potassium Chloride 96.3 L Carbon Dioxide 21 L BUN 46 H Creatinine 2.2 H Glucose 106 H POC Glucose 115 H 151 H Lactic Acid Calcium 8.2 L Ionized Calcium Phosphorus Magnesium Direct Bilirubin AST ALT Alkaline Phosphatase Lactate Dehydrogenase Troponin T C-Reactive Protein Total Protein Albumin Prealbumin Triglycerides Cholesterol LDL Cholesterol Direct HDL Cholesterol 25-OH Vitamin D Total PTH Intact Urine pH Urine WBC (Auto) Urine Creatinine Urine Total Protein Fluid Total Protein Vancomycin Trough Rheumatoid Factor Complement C4 Miscellaneous Test Crossmatch 03/10/17 03/10/17 03/11/17 17:53 23:46 05:19 WBC RBC Hgb Hct MCV MCH MCHC RDW Plt Count Lymph % (Auto) [place] % (Auto) Lymph # [place] # Baso # Seg Neutrophils % Seg Neuts % (Manual) Lymphocytes % (Manual) Monocytes % (Manual) Eosinophils % (Manual) Basophils % (Manual) Nucleated RBC % Seg Neutrophils # Seg Neutrophils # Man Lymphocytes # (Manual) Monocytes # (Manual) Eosinophils # (Manual) Basophils # (Manual) PT INR Fibrinogen dRVVT Confirm Interp Factor V Activity POC ABG pH POC ABG pCO2 POC ABG pO2 ABG pO2 ABG HCO3 ABG Base Excess ABG Hemoglobin Oxyhemoglobin Sodium Potassium Chloride Carbon Dioxide BUN Creatinine Glucose POC Glucose 137 H 131 H 108 H Lactic Acid Calcium Ionized Calcium Phosphorus Magnesium Direct Bilirubin AST ALT Alkaline Phosphatase Lactate Dehydrogenase Troponin T C-Reactive Protein Total Protein Albumin Prealbumin Triglycerides Cholesterol LDL Cholesterol Direct HDL Cholesterol 25-OH Vitamin D Total PTH Intact Urine pH Urine WBC (Auto) Urine Creatinine Urine Total Protein Fluid Total Protein Vancomycin Trough Rheumatoid Factor Complement C4 Miscellaneous Test Crossmatch 03/11/17 03/11/17 03/11/17 11:37 18:13 23:55 WBC RBC Hgb Hct MCV MCH MCHC RDW Plt Count Lymph % (Auto) [place] % (Auto) Lymph # [place] # Baso # Seg Neutrophils % Seg Neuts % (Manual) Lymphocytes % (Manual) Monocytes % (Manual) Eosinophils % (Manual) Basophils % (Manual) Nucleated RBC % Seg Neutrophils # Seg Neutrophils # Man Lymphocytes # (Manual) Monocytes # (Manual) Eosinophils # (Manual) Basophils # (Manual) PT INR Fibrinogen dRVVT Confirm Interp Factor V Activity POC ABG pH POC ABG pCO2 POC ABG pO2 ABG pO2 ABG HCO3 ABG Base Excess ABG Hemoglobin Oxyhemoglobin Sodium Potassium Chloride Carbon Dioxide BUN Creatinine Glucose POC Glucose 113 H 126 H 134 H Lactic Acid Calcium Ionized Calcium Phosphorus Magnesium Direct Bilirubin AST ALT Alkaline Phosphatase Lactate Dehydrogenase Troponin T C-Reactive Protein Total Protein Albumin Prealbumin Triglycerides Cholesterol LDL Cholesterol Direct HDL Cholesterol 25-OH Vitamin D Total PTH Intact Urine pH Urine WBC (Auto) Urine Creatinine Urine Total Protein Fluid Total Protein Vancomycin Trough Rheumatoid Factor Complement C4 Miscellaneous Test Crossmatch 03/12/17 03/12/17 03/12/17 05:06 11:30 17:39 WBC RBC Hgb Hct MCV MCH MCHC RDW Plt Count Lymph % (Auto) [place] % (Auto) Lymph # [place] # Baso # Seg Neutrophils % Seg Neuts % (Manual) Lymphocytes % (Manual) Monocytes % (Manual) Eosinophils % (Manual) Basophils % (Manual) Nucleated RBC % Seg Neutrophils # Seg Neutrophils # Man Lymphocytes # (Manual) Monocytes # (Manual) Eosinophils # (Manual) Basophils # (Manual) PT INR Fibrinogen dRVVT Confirm Interp Factor V Activity POC ABG pH POC ABG pCO2 POC ABG pO2 ABG pO2 ABG HCO3 ABG Base Excess ABG Hemoglobin Oxyhemoglobin Sodium Potassium Chloride Carbon Dioxide BUN Creatinine Glucose POC Glucose 127 H 144 H 151 H Lactic Acid Calcium Ionized Calcium Phosphorus Magnesium Direct Bilirubin AST ALT Alkaline Phosphatase Lactate Dehydrogenase Troponin T C-Reactive Protein Total Protein Albumin Prealbumin Triglycerides Cholesterol LDL Cholesterol Direct HDL Cholesterol 25-OH Vitamin D Total PTH Intact Urine pH Urine WBC (Auto) Urine Creatinine Urine Total Protein Fluid Total Protein Vancomycin Trough Rheumatoid Factor Complement C4 Miscellaneous Test Crossmatch 03/13/17 03/13/17 05:01 05:39 WBC RBC Hgb Hct MCV MCH MCHC RDW Plt Count Lymph % (Auto) [place] % (Auto) Lymph # [place] # Baso # Seg Neutrophils % Seg Neuts % (Manual) Lymphocytes % (Manual) Monocytes % (Manual) Eosinophils % (Manual) Basophils % (Manual) Nucleated RBC % Seg Neutrophils # Seg Neutrophils # Man Lymphocytes # (Manual) Monocytes # (Manual) Eosinophils # (Manual) Basophils # (Manual) PT INR Fibrinogen dRVVT Confirm Interp Factor V Activity POC ABG pH POC ABG pCO2 POC ABG pO2 ABG pO2 ABG HCO3 ABG Base Excess ABG Hemoglobin Oxyhemoglobin Sodium 136 L Potassium 3.4 L Chloride 94.6 L Carbon Dioxide BUN 68 H Creatinine 2.9 H Glucose 105 H POC Glucose 123 H Lactic Acid Calcium Ionized Calcium Phosphorus Magnesium Direct Bilirubin AST ALT Alkaline Phosphatase Lactate Dehydrogenase Troponin T C-Reactive Protein Total Protein Albumin Prealbumin Triglycerides Cholesterol LDL Cholesterol Direct HDL Cholesterol 25-OH Vitamin D Total PTH Intact Urine pH Urine WBC (Auto) Urine Creatinine Urine Total Protein Fluid Total Protein Vancomycin Trough Rheumatoid Factor Complement C4 Miscellaneous Test Crossmatch Allied health notes reviewed: nursing
[2017-03-13] MEDS: HEPARIN IV PRN (16:24)
[2017-03-13] MEDS: PEPCID IV SCH (17:55)
[2017-03-13] MEDS: MAXIPIME 1 GM in NACL 0.9% 20 ML IV SCH (17:56)
[2017-03-13] MEDS ORDERED: TPN ADULT IV SCH (20:00)
[2017-03-13] MEDS ORDERED: INTRALIPID 20% 250 ML IV SCH (20:00)
[2017-03-13] MEDS ORDERED: NACL 0.9% 1000 ML 1,000 ML ONE (22:00)
[2017-03-13] MEDS: VANCOMYCIN VIAL 1,000 MG in NACL 0.9% 100 ML IV SCH (22:57)
[2017-03-13] MEDS: LEVOPHED DRIP 4 MG/NS 250 ML 4 MG/250 ML BAG IV SCH (23:03)
[2017-03-14] MEDS: CORDARONE 900 MG in D5W 482 ML IV SCH (00:11)
[2017-03-14] MEDS: HumuLIN R SUB-Q SCH ×4 (00:11→17:05)
[2017-03-14] MEDS: LOPRESSOR IV SCH ×4 (01:30→20:00)
[2017-03-14 05:13] LABS: Calcium 8.1 mg/dL (8.4-10.2)
[2017-03-14] MEDS: FLAGYL 500 MG/100 ML 500 MG/100 ML BAG IV SCH ×3 (06:13→22:00)
[2017-03-14] MEDS: LEVOPHED DRIP 4 MG/NS 250 ML 4 MG/250 ML BAG IV SCH ×2 (07:49→17:01)
[2017-03-14] MEDS: DUONEB *Not for PRN Use IH SCH ×3 (08:53→22:32)
--- NOTE | 2017-03-14 08:55 | Progress Note ---
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 UF as tolerated. Patient's serum creatinine is noted to be low - due to wasting of muscle mass. Needs to be maintained on dialysis at this time. * hypercalcemia work up - likely due to immobilization * Abx management per ID * Adjust Ca bath with dialysis prn * Transfuse pRBC per primary team. Epogen TIW prn * Vent management per pulm/CCM * Pressors prn for MAP>65 * Dose medications for renal function Subjective Date of service: 03/14/17 Principal diagnosis: Acute resp failure on MVS; S/P Acute CVA; Acute Encephalopathy; JUANITA Interval history: new events from last pm noted Objective - Exam Narrative Exam: Gen. appearance: Patient lying in bed, no apparent distress, 4. restraints HEENT: Normocephalic, atraumatic, pupils equally round and reactive to light, extraocular movement intact, and no sclericterus,. No JVD or thyromegaly or nodule,neck supple, no carotid bruit ,mucous membranes moist, unable to examine oral cavity Heart: S1, S2, regular rate and rhythm Lungs: Clear to auscultation bilaterally, breathing comfortable Abdomen: Positive bowel sounds, nontender, nondistended, no organomegaly Extremity: No edema, cyanosis, clubbing Skin: No rash, nodules, warm, dry Neuro: Difficult to assess, facial droop, moves all 4 extremities - Vital Signs Vital signs: Vital Signs - 12hr 03/13/17 03/13/17 03/13/17 21:00 21:15 21:16 Temperature Pulse Rate 92 H 93 H Pulse Rate [ 97 H Throughout] Respiratory 19 Rate Respiratory 26 H Rate [ Throughout] Blood Pressure 111/58 116/67 O2 Sat by Pulse 100 100 Oximetry O2 Sat by Pulse Oximetry [ Assessment] 03/13/17 03/13/17 03/13/17 21:20 22:00 23:00 Temperature Pulse Rate 96 H 94 H Pulse Rate [ 92 H Throughout] Respiratory 24 16 Rate Respiratory 22 Rate [ Throughout] Blood Pressure 114/62 99/56 O2 Sat by Pulse 100 100 Oximetry O2 Sat by Pulse Oximetry [ Assessment] 03/13/17 03/14/17 03/14/17 23:19 00:00 00:10 Temperature 98.6 F Pulse Rate 100 H 103 H 99 H Pulse Rate [ Throughout] Respiratory 21 Rate Respiratory Rate [ Throughout] Blood Pressure 119/70 100/49 100/49 O2 Sat by Pulse 99 100 Oximetry O2 Sat by Pulse Oximetry [ Assessment] 03/14/17 03/14/17 03/14/17 01:00 01:30 02:00 Temperature Pulse Rate 97 H 100 H 93 H Pulse Rate [ Throughout] Respiratory 23 15 Rate Respiratory Rate [ Throughout] Blood Pressure 100/46 103/48 97/46 O2 Sat by Pulse 100 100 Oximetry O2 Sat by Pulse Oximetry [ Assessment] 03/14/17 03/14/17 03/14/17 03:00 03:53 04:00 Temperature 97.8 F Pulse Rate 102 H 95 H 93 H Pulse Rate [ Throughout] Respiratory 25 H 16 Rate Respiratory Rate [ Throughout] Blood Pressure 108/60 100/54 108/57 O2 Sat by Pulse 100 100 100 Oximetry O2 Sat by Pulse Oximetry [ Assessment] 03/14/17 03/14/17 03/14/17 05:00 06:01 07:00 Temperature Pulse Rate 91 H 106 H 91 H Pulse Rate [ Throughout] Respiratory 19 26 H 17 Rate Respiratory Rate [ Throughout] Blood Pressure 103/58 75/35 112/60 O2 Sat by Pulse 100 100 100 Oximetry O2 Sat by Pulse Oximetry [ Assessment] 03/14/17 03/14/17 03/14/17 07:50 07:55 08:00 Temperature 99.5 F Pulse Rate 98 H Pulse Rate [ Throughout] Respiratory 25 H Rate Respiratory Rate [ Throughout] Blood Pressure 102/56 O2 Sat by Pulse 99 Oximetry O2 Sat by Pulse 98 Oximetry [ Assessment] - Lab 02/24/17 10:05 03/14/17 03:30 Most recent lab results ABG pH 7.450 pH Units (7.350-7.450) 12/05/16 Unknown ABG pCO2 29.6 mm Hg 12/05/16 Unknown ABG pO2 75.2 mm Hg (80.0-90.0) L 12/05/16 Unknown ABG HCO3 20.1 mmol/L (20.0-26.0) 12/05/16 Unknown ABG O2 Saturation 96.8 % (95.0-99.0) 12/05/16 Unknown Calcium 8.1 mg/dL (8.4-10.2) L 03/14/17 03:30 Phosphorus 2.10 mg/dL (2.5-4.5) L D 03/14/17 03:30 Magnesium 1.60 mg/dL (1.7-2.3) L 03/14/17 03:30 Urine Creatinine 19.7 mg/dL (0.1-20.0) 11/12/16 10:18 Urine Sodium 36 mEq/L 09/16/16 19:19 Urine Total Protein 16 mg/dL (5-11.8) H 09/16/16 19:19
--- NOTE | 2017-03-14 09:07 | Progress Note ---
Assessment and Plan Assessment and plan: 47-year-old female patient multiple medical problems, large CVA , hypoxic encephalopathy , status post cardiac arrest , vegetative state , atrial fibrillation , sepsis , aspiration pneumonia , end-stage renal disease on hemodialysis , multiple sacral and lower extremity decubiti requiring debridement , severe protein calorie malnutrition peritonitis / perforation, multiple surgeries, DO NOT RESUSCITATE status,prolonged hospital stay and poor prognosis, --Hypophosphatemia/hypomagnesemia: replace and monitor levels -- sepsis,recurrent enterococcal bacteremia, continue antibiotics per ID, --Hypotension; continue Levophed --A. fib with rapid ventricular rate; continue amiodarone drip --Acute respiratory failure status post tracheostomy vent dependent --Status post cardiac arrest/anoxic encephalopathy/status post tracheostomy --Persistent agitated state/DO NOT RESUSCITATE status, family not ready for hospice --Enterococcal septicemia; continue current management ID following, PRINCE negative for vegetations --Peritonitis ; due to gastric perforation, status post exploratory laparotomy, but gastrostomy, abdominal washout and drain placement, on TPN --End-stage renal disease on hemodialysis --Large CVA; continue current management --Aspiration pneumonia; completed multiple courses of antibiotics, ID following --Severe protein calorie malnutrition; nutrition consult and supportive care --Multiple sacral and lower extremity decubitus ulcers; status post debridement , continue wound care --DO NOT RESUSCITATE status Poor prognosis, had many family meetings in the past, family of areas of patient 's poor prognosis Critical care time 32 minutes - The high probability of a clinically significant, sudden or life threatening deterioration of the [neurologic, CV] system(s) required my full and direct attention, intervention and personal management. The aggregate critical care time was [32] minutes. This time is in addition to time spent performing reported procedures but includes the following: [x] Data Review and interpretation [x] Patient assessment and monitoring of vital signs [x] Documentation [x] Medication orders and management History Interval history: Patient seen and evaluated, medical records reviewed Clinically no change, low-grade fever ,tracheostomy on vent On amio,levophed drips and TPN Hospitalist Physical - Constitutional Vitals: Temp Pulse Resp BP Pulse Ox 99.5 F 98 H 18 102/56 98 03/14/17 08:00 03/14/17 08:55 03/14/17 08:55 03/14/17 07:50 03/14/17 07:55 General appearance: Present: no acute distress, cachectic, other (spontaneous opening of eyes, unresponsive) - EENT Eyes: Present: PERRL - Neck Neck: Present: supple - Respiratory Respiratory effort: normal Respiratory: bilateral: diminished, rhonchi, negative: rales, wheezing - Cardiovascular Rhythm: regular Heart Sounds: Present: S1 & S2 - Extremities Extremities: abnormal (contracted,edema) Extremity abnormal: edema - Abdominal General gastrointestinal: soft, non-distended, absent bowel sounds - Integumentary Integumentary: Present: clear, warm - Psychiatric Psychiatric: other (unresponsive) - Neurologic Neurologic: other (non communicative) Results - Labs CBC & Chem 7: 03/14/17 14:30 03/14/17 03:30 Labs: Laboratory Last Values WBC 10.2 K/mm3 (4.5-11.0) 02/24/17 10:05 RBC 2.95 M/mm3 (3.65-5.03) L 02/24/17 10:05 Hgb 8.4 gm/dl (10.1-14.3) L 02/24/17 10:05 Hct 25.7 % (30.3-42.9) L 02/24/17 10:05 MCV 87 fl (79-97) 02/24/17 10:05 MCH 28 pg (28-32) 02/24/17 10:05 MCHC 33 % (30-34) 02/24/17 10:05 RDW 20.8 % (13.2-15.2) H 02/24/17 10:05 Plt Count 333 K/mm3 (140-440) 02/24/17 10:05 Lymph % (Auto) 19.8 % (13.4-35.0) 02/24/17 10:05 [place] % (Auto) 7.2 % (0.0-7.3) 02/24/17 10:05 Eos % (Auto) 0.7 % (0.0-4.3) 02/24/17 10:05 Baso % (Auto) 0.5 % (0.0-1.8) 02/24/17 10:05 Lymph # 2.0 K/mm3 (1.2-5.4) 02/24/17 10:05 [place] # 0.7 K/mm3 (0.0-0.8) 02/24/17 10:05 Eos # 0.1 K/mm3 (0.0-0.4) 02/24/17 10:05 Baso # 0.0 K/mm3 (0.0-0.1) 02/24/17 10:05 Add Manual Diff Complete 12/19/16 05:02 Total Counted 100 12/19/16 05:02 Seg Neutrophils % 71.8 % (40.0-70.0) H 02/24/17 10:05 Seg Neuts % (Manual) 64.0 % (40.0-70.0) 12/19/16 05:02 Band Neutrophils % 15.0 % 12/19/16 05:02 Lymphocytes % (Manual) 13.0 % (13.4-35.0) L 12/19/16 05:02 Reactive Lymphs % (Man) 0 % 12/19/16 05:02 Monocytes % (Manual) 7.0 % (0.0-7.3) 12/19/16 05:02 Eosinophils % (Manual) 0 % (0.0-4.3) 12/19/16 05:02 Basophils % (Manual) 1.0 % (0.0-1.8) 12/19/16 05:02 Metamyelocytes % 0 % 12/19/16 05:02 Myelocytes % 0 % 12/19/16 05:02 Promyelocytes % 0 % 12/19/16 05:02 Blast Cells % 0 % 12/19/16 05:02 Nucleated RBC % 1.0 % (0.0-0.9) H 12/19/16 05:02 Seg Neutrophils # 7.3 K/mm3 (1.8-7.7) 02/24/17 10:05 Seg Neutrophils # Man 12.9 K/mm3 (1.8-7.7) H 12/19/16 05:02 Band Neutrophils # 3.0 K/mm3 12/19/16 05:02 Lymphocytes # (Manual) 2.6 K/mm3 (1.2-5.4) 12/19/16 05:02 Abs React Lymphs (Man) 0.0 K/mm3 12/19/16 05:02 Monocytes # (Manual) 1.4 K/mm3 (0.0-0.8) H 12/19/16 05:02 Eosinophils # (Manual) 0.0 K/mm3 (0.0-0.4) 12/19/16 05:02 Basophils # (Manual) 0.2 K/mm3 (0.0-0.1) H 12/19/16 05:02 Metamyelocytes # 0.0 K/mm3 12/19/16 05:02 Myelocytes # 0.0 K/mm3 12/19/16 05:02 Promyelocytes # 0.0 K/mm3 12/19/16 05:02 Blast Cells # 0.0 K/mm3 12/19/16 05:02 Pathologist Review 09/13/16 04:00 WBC Morphology Not Reportable 12/19/16 05:02 Hypersegmented Neuts Not Reportable 12/19/16 05:02 Hyposegmented Neuts Not Reportable 12/19/16 05:02 Hypogranular Neuts Not Reportable 12/19/16 05:02 Smudge Cells Not Reportable 12/19/16 05:02 Toxic Granulation Not Reportable 12/19/16 05:02 Toxic Vacuolation Not Reportable 12/19/16 05:02 Dohle Bodies Not Reportable 12/19/16 05:02 Pelger-Huet Anomaly Not Reportable 12/19/16 05:02 Jasmina Rods Not Reportable 12/19/16 05:02 Platelet Estimate Consistent w auto 12/19/16 05:02 Clumped Platelets Not Reportable 12/19/16 05:02 Plt Clumps, EDTA Not Reportable 12/19/16 05:02 Large Platelets Not Reportable 12/19/16 05:02 Giant Platelets Not Reportable 12/19/16 05:02 Platelet Satelliting Not Reportable 12/19/16 05:02 Plt Morphology Comment Not Reportable 12/19/16 05:02 RBC Morphology Not Reportable 12/19/16 05:02 Dimorphic RBCs Not Reportable 12/19/16 05:02 Polychromasia Not Reportable 12/19/16 05:02 Hypochromasia Not Reportable 12/19/16 05:02 Poikilocytosis Not Reportable 12/19/16 05:02 Anisocytosis Not Reportable 12/19/16 05:02 Microcytosis Not Reportable 12/19/16 05:02 Macrocytosis Not Reportable 12/19/16 05:02 Spherocytes Not Reportable 12/19/16 05:02 Pappenheimer Bodies Not Reportable 12/19/16 05:02 Sickle Cells Not Reportable 12/19/16 05:02 Target Cells Few 12/19/16 05:02 Tear Drop Cells Not Reportable 12/19/16 05:02 Ovalocytes Not Reportable 12/19/16 05:02 Stomatocytes Rare 12/03/16 04:00 Helmet Cells Not Reportable 12/19/16 05:02 [place] Bodies Not Reportable 12/19/16 05:02 [place] Rings Not Reportable 12/19/16 05:02 [place] Cells Not Reportable 12/19/16 05:02 Bite Cells Not Reportable 12/19/16 05:02 Crenated Cell Not Reportable 12/19/16 05:02 Elliptocytes Not Reportable 12/19/16 05:02 Acanthocytes (Spur) Not Reportable 12/19/16 05:02 Rouleaux Not Reportable 12/19/16 05:02 Hemoglobin C Crystals Not Reportable 12/19/16 05:02 Schistocytes Not Reportable 12/19/16 05:02 Malaria parasites Not Reportable 12/19/16 05:02 ESR > 140.0 mm/Hr (0-20) 09/08/16 11:48 Jun Bodies Not Reportable 12/19/16 05:02 Hem Pathologist Commnt No 12/19/16 05:02 PT 15.4 Sec. (12.2-14.9) H 01/13/17 15:50 INR 1.16 (0.87-1.13) H 01/13/17 15:50 APTT 33.0 Sec. (24.2-36.6) 10/09/16 03:45 Thrombin Time 16.8 Sec. (15.1-19.6) 09/03/16 00:10 Fibrinogen 750 mg/dl (211-480) H 09/08/16 11:48 Lupus Anticoagulant see below 09/12/16 09:59 LA PTT Baseline See scanned report 09/12/16 09:59 dRVVT Confirm Interp Positive (Negative) H 09/12/16 09:59 dRVVT Screen 50:50 See scanned report 09/12/16 09:59 dRVVT Mix Interpret See scanned report 09/12/16 09:59 Protein C Antigen 122 % (70-140) 09/08/16 15:35 Free Protein S 97 % normal (50-147) 09/08/16 15:35 Total Protein S 109 % (70-140) 09/08/16 15:35 Antithrombin III Ag 100 % (80-120) 09/08/16 15:35 Heparin Anti-Xa, Unfract Negative (Negative) 09/29/16 13:35 Factor V Activity 182 % (65-150) H 09/08/16 15:35 POC ABG pH 7.518 (7.35-7.45) H 03/03/17 20:17 ABG pH 7.450 pH Units (7.350-7.450) 12/05/16 Unknown POC ABG pCO2 28.8 (35-45) L 03/03/17 20: ABG pCO2 29.6 mm Hg 12/05/16 Unknown POC ABG pO2 61 (80-105) L 03/03/17 20: ABG pO2 75.2 mm Hg (80.0-90.0) L 12/05/16 Unknown POC ABG HCO3 23.4 03/03/17 20: ABG HCO3 20.1 mmol/L (20.0-26.0) 12/05/16 Unknown POC ABG Total CO2 24 03/03/17 20:17 POC ABG O2 Sat 94 03/03/17 20: ABG O2 Saturation 96.8 % (95.0-99.0) 12/05/16 Unknown ABG O2 Content 9.9 (0.0-44) 12/05/16 Unknown POC ABG Base Excess 0 03/03/17 20: ABG Base Excess -3.4 mmol/L (-2.0-3.0) L 12/05/16 Unknown ABG Hemoglobin 7.4 gm/dl (12.0-16.0) L 12/05/16 Unknown ABG Carboxyhemoglobin 1.8 % (0.0-5.0) 12/05/16 Unknown ABG Methemoglobin 0.6 % (0.0-1.5) 12/05/16 Unknown Oxyhemoglobin 94.5 % (95.0-99.0) L 12/05/16 Unknown FiO2 40 % 03/03/17 20:17 Sodium 133 mmol/L (137-145) L 03/14/17 03:30 Potassium 4.0 mmol/L (3.6-5.0) 03/14/17 03:30 Chloride 95.7 mmol/L (98-107) L 03/14/17 03:30 Carbon Dioxide 21 mmol/L (22-30) L 03/14/17 03:30 Anion Gap 20 mmol/L 03/14/17 03:30 BUN 37 mg/dL (7-17) H 03/14/17 03:30 Creatinine 1.8 mg/dL (0.7-1.2) H 03/14/17 03:30 Estimated GFR 37 ml/min 03/14/17 03:30 BUN/Creatinine Ratio 21 % 03/14/17 03:30 Glucose 138 mg/dL (65-100) H 03/14/17 03:30 POC Glucose 147 (70-105) H 03/13/17 21:53 Osmolality 351 Mosm/kg 09/16/16 11:47 Lactic Acid 2.30 mmol/L (0.7-2.0) H* 01/09/17 08:22 Calcium 8.1 mg/dL (8.4-10.2) L 03/14/17 03:30 Ionized Calcium 6.0 mg/dL (4.8-5.6) H 02/15/17 19:08 Phosphorus 2.10 mg/dL (2.5-4.5) L D 03/14/17 03:30 Magnesium 1.60 mg/dL (1.7-2.3) L 03/14/17 03:30 Total Bilirubin 0.50 mg/dL (0.1-1.2) 03/06/17 03:52 Direct Bilirubin 0.2 mg/dL (0-0.2) 01/28/17 04:00 Indirect Bilirubin 0.3 mg/dL 01/28/17 04:00 AST 18 units/L (5-40) 03/06/17 03:52 ALT 18 units/L (7-56) 03/06/17 03:52 Alkaline Phosphatase 165 units/L (35-129) H 03/06/17 03:52 Ammonia 27.0 umol/L (25-60) 09/07/16 08:37 Lactate Dehydrogenase 170 units/L (91-180) 01/13/17 15:50 Total Creatine Kinase 121 units/L (30-135) 09/29/16 20:12 CK-MB (CK-2) < 1.0 ng/mL (0.0-4.0) 09/29/16 20:12 CK-MB (CK-2) Rel Index 0.8 (0-4) 09/29/16 20:12 Troponin T 0.204 ng/mL (0.00-0.029) H* 09/29/16 20:12 C-Reactive Protein 8.10 mg/dL (0.00-1.30) H 01/31/17 11:12 Total Protein 7.0 g/dL (6.3-8.2) 03/06/17 03:52 Albumin 1.5 g/dL (3.9-5) L 03/06/17 03:52 Albumin/Globulin Ratio 0.3 % 03/06/17 03:52 Prealbumin 0.110 g/L (0.200-0.400) L 12/29/16 05:15 Triglycerides 55 mg/dL (2-149) 02/06/17 04:45 Cholesterol 31 mg/dL (50-199) L 09/29/16 20:12 LDL Cholesterol Direct 4 mg/dL (50-130) L 09/29/16 20:12 HDL Cholesterol 3 mg/dL (40-59) L 09/29/16 20:12 Cholesterol/HDL Ratio 10.33 % 09/29/16 20:12 Angiotensin Convert Enz See scanned report 09/08/16 11:48 Renin 0.99 ng/mL/h (0.25-5.82) 10/07/16 10:56 Aldosterone <1 ng/dL () 10/07/16 10:56 Aldosterone/Renin Dir see below 10/07/16 10:56 Serotonin Release Assay See scanned report 09/29/16 13:35 25-OH Vitamin D Total 13 ng/mL (30-100) L 02/15/17 19:08 25-Hydroxy Vitamin D2 . 02/15/17 19:08 25-Hydroxy Vitamin D3 . 02/15/17 19:08 TSH 1.010 mlU/mL (0.270-4.200) 09/07/16 08:37 HCG, Qual Negative (Negative) 09/03/16 00:10 PTH Intact 10.88 pg/mL (15-65) L 02/15/17 19:08 Total Cortisol 18.2 mcg/dL () 02/02/17 20:09 Urine Color Yellow (Yellow) 11/05/16 13:09 Urine Turbidity Clear (Clear) 11/05/16 13:09 Urine pH 9.0 (5.0-7.0) H 11/05/16 13:09 Ur Specific [place] 1.011 (1.003-1.030) 11/05/16 13:09 Urine Protein 100 mg/dl mg/dL (Negative) 11/05/16 13:09 Urine Glucose (UA) Neg mg/dL (Negative) 11/05/16 13:09 Urine Ketones Neg mg/dL (Negative) 11/05/16 13:09 Urine Blood Neg (Negative) 11/05/16 13:09 Urine Nitrite Neg (Negative) 11/05/16 13:09 Urine Bilirubin Neg (Negative) 11/05/16 13:09 Urine Urobilinogen < 2.0 mg/dL (<2.0) 11/05/16 13:09 Ur Leukocyte Esterase Neg (Negative) 11/05/16 13:09 Urine WBC (Auto) 4.0 /HPF (0.0-6.0) 11/05/16 13:09 Urine RBC (Auto) 1.0 /HPF (0.0-6.0) 11/05/16 13:09 U Epithel Cells (Auto) 1.0 /HPF (0-13.0) 10/07/16 18:30 Urine Bacteria (Auto) 4+ /HPF (Negative) 11/05/16 13:09 Urine WBC Clumps 2+ /HPF 09/07/16 02:47 Hyaline Casts 4 /LPF 09/07/16 02:47 Urine Mucus Few /HPF 10/07/16 18:30 Urine Yeast (Budding) 3+ /HPF 10/07/16 18:30 Urine Eosinophils None seen (None Seen) 09/07/16 16:00 Urine Total Volume 950 11/12/16 10:18 Urine Creatinine 19.7 mg/dL (0.1-20.0) 11/12/16 10:18 Height (in) 65.0 inches 11/12/16 10:18 Weight (lb) 181.0 lbs 11/12/16 10:18 Creatinine Clearance 5 11/12/16 10:18 Urine Sodium 36 mEq/L 09/16/16 19:19 Urine Total Protein 16 mg/dL (5-11.8) H 09/16/16 19:19 Fluid Type Pleural 01/13/17 12:10 Fluid Color Yellow 01/13/17 12:10 Fluid Appearance Hazy 01/13/17 12:10 Fluid WBC 182 /mm3 01/13/17 12:10 Fluid RBC 41 /mm3 01/13/17 12:10 Fluid Seg Neutrophils 85.0 % 01/13/17 12:10 Fluid Lymphocytes 8.0 % 01/13/17 12:10 Fluid Reactive Lymphs 0 % 01/13/17 12:10 Fluid Monocytes 6.0 % 01/13/17 12:10 Fluid Eosinophils 1.0 % 01/13/17 12:10 Fluid Basophils 0 % 01/13/17 12:10 Fluid Total Protein 3.0 (15.0-45.0) L 01/13/17 12:10 Fluid LDH 1322 01/13/17 12:10 Fluid Comment Diff performed 01/13/17 12:10 Vancomycin Trough 2.3 ug/mL (5.0-20.0) L 09/21/16 13:00 Random Vancomycin 26.0 ug/mL (0-40.0) 03/13/17 05:39 Urine Opiates Screen Presumptive negative 09/03/16 15:11 Urine Methadone Screen Presumptive positive 09/03/16 15:11 Ur Barbiturates Screen Presumptive positive 09/03/16 15:11 Ur Phencyclidine Scrn Presumptive negative 09/03/16 15:11 Ur Amphetamines Screen Presumptive negative 09/03/16 15:11 U Benzodiazepines Scrn Presumptive negative 09/03/16 15:11 Urine Cocaine Screen Presumptive negative 09/03/16 15:11 U Marijuana (THC) Screen Presumptive positive 09/03/16 15:11 Drugs of Abuse Note Disclamer 09/03/16 15:11 Rheumatoid Factor 24 IU/ml (0-13) H 09/08/16 11:48 SAHIL Screen Negative (Negative) 09/07/16 09:20 Proteinase 3 (PR3) Ab <1.0 AI (<1.0) 09/07/16 09:20 Myeloperoxidase Ab <1.0 AI (<1.0) 09/07/16 09:20 Sjogren's Antibody <1.0 AI (<1.0) 09/08/16 15:35 Scl-70 Scleroderma Ab <1.0 AI (<1.0) 09/08/16 15:35 Centromere B Antibody <1.0 AI (<1.0) 09/08/16 12:02 Heparin-induced Plt Ab Negative (Negative) 09/29/16 13:35 UF Heparin High Dose 11 % Release 09/29/16 13:35 SUDHIR UFH Low Dose 0.1 6 % Release 09/29/16 13:35 SUDHIR UFH Low Dose 0.5 8 % Release 09/29/16 13:35 Cardiolipid IgG Ab <14 GPL (<=14) 09/12/16 09:59 Cardiolipid IgA Ab <11 APL (<=11) 09/12/16 09:59 Cardiolipid IgM Ab <12 MPL (<=12) 09/12/16 09:59 Complement C3 148 mg/dL (90-180) 09/07/16 09:20 Complement C4 58 mg/dL (16-47) H 09/07/16 09:20 RPR Nonreactive (Nonreactive) 09/08/16 11:48 Hepatitis A IgM Ab Non-reactive (NonReactive) 09/24/16 14:40 Hep Bs Antigen Non-reactive (Negative) 09/24/16 14:40 Hep B Core IgM Ab Non-reactive (NonReactive) 09/24/16 14:40 Hepatitis C Antibody Non-reactive (NonReactive) 09/24/16 14:40 HIV 1&2 Antibody Rapid Non react (Non React) 09/08/16 11:48 HIV P24 Antigen Non react (Non React) 09/08/16 11:48 Miscellaneous Test Flexitest 1 H 01/09/17 18:45 Blood Type A POSITIVE 02/12/17 10:25 Antibody Screen Negative 02/12/17 10:25 DELORIS Antibody Screen Negative 11/24/16 11:20 Crossmatch See Detail 02/12/17 10:25
[2017-03-14] MEDS ORDERED: MAGNESIUM SULFATE 2GM/50ML 2 GM/50 ML BAG IV ONE (10:00)
[2017-03-14] MEDS: HEPARIN SUB-Q SCH ×2 (10:30→22:00)
[2017-03-14] MEDS: MAXIPIME 1 GM in NACL 0.9% 20 ML IV SCH (10:31)
[2017-03-14] MEDS: PEPCID IV SCH (10:31)
--- NOTE | 2017-03-14 10:45 | Progress Note ---
Assessment and Plan Assessment: 1) Recurrent SIRS: new septic shock ? - Likely due to recurrent Enterococcus bacteremia ? intrabdominal source ? PIV infected 2) History of Peritonitis: from gastric perforation from dislodged PEG with significant ascites -S/P exlap, repair of gastric perforation with wedge gastrectomy, abdominal washout, drain placement on 10/05 3) History of Candidemia: -Blood cultures positive for Silvia albicans on 09/23 and 09/25 -Blood cultures negative on 09/30 -PICC line changed on 10/03 -Source ? gastric perf (PEG placed on 09/20) +/- TPN +/- central lines -TTE 10/07 no vegetations -PICC exchanged on 10/03 -fully treated with micafungin for 14 days last day 10/13 4) History CA-UTI s/p gutierrez exchanged 5) Diarrhea - ? etiology ? antibiotic-induced, not better. 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 from GI bleed 13) Recent abdominal wall abscess at surgical site-treated 14 ) Recent Enterococcal bacteremia from PICC line infection. 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 -S/P debridement at bedside - new wound cx 01/24 +Proteus and MDR Pseudomonas (resistant to meropenem and cefepime/sensitive to ceftazidime) and wound VAC placement -CRP=24 --> 8 16) Presumed VAP: sputum + MDR Pseudomonas / Proteus / pleural effusion s/p thoracentesis 17) Resp failure - better 18) Perforated bowel: Ct showed presumed perf bowel with free air -repeat CT showed large 21x4.2 cm collection 19) Enterococcal septicemia from IV cath. TTE no vegetations 18) PIV site infection s/p line removed on 03/09 tip + Enterococcus Plan: -surg eval - pending -CT guided drainage - pending -continue cefepime and flagyl -day 4 -continue vancomycin for now total 14 days from perm cath removal until 03/16 poor prognosis Thank you for your consultation, will follow up with you. Pauline Carias MD Infectious Diseases Specialist [facility] ([facility]) M [phone] O [phone] Subjective Date of service: 03/14/17 Principal diagnosis: Acute resp failure on MVS; S/P Acute CVA; Acute Encephalopathy; JUANITA Interval history: Interval history: remains on the vent, tachy on monitor, on amiodarone gtt, had fever on 03/05, fever resolved, on levophed at 8 mcg/min Microbiology: Blood cultures: 09/13 neg 09/23 Silvia albicans 09/25 Silvia 09/29 neg 10/07 neg 11/05 neg 11/07 ngtd 11/22 E faecalis 1 of 4 bottles 11/25 neg 12/27 neg 01/09 ngtd 02/14 ngtd 02/27 Enterococcus durans 1 of 4 bottles 03/06 ngtd PIV tip 03/09 Enterococcus, SEO ASSISTANT, Proteus Urine cultures: 09/10 neg 09/13 neg 8/ 10-100K mixed species 10/07 neg 11/05 VRE 11/07 mixed bacteria Respiratory cultures: 09/07 neg 09/13 neg 09/23 neg 11/07 MDR Pseudomonas 10 tracheal + VRE 01/09 Pseudomonas x 3 and Proteues Pleural effusion: ngtd Wound cultures: 10/17 abd wall wound purulence + Pseudomonas MDR 01/24 GNRs Stool cultures: cath tip 11/07 + SEO ASSISTANT Current Antimicrobials: cefepime 03/09 flagyl 03/09 vanco Previous Antimicrobials: Zosyn 10/07 Vancomycin PO 10/01 Metronidazole 09/25 Micafungin 09/27-10/13 Meropenem 10/10 Vanco 10/17 zosyn 10/21 Cefepime 11/10 vancomyin 11/07 fluconazole 10/19 cefepime 10/29levaquin 11/05 vanco 11/23 meropenem 01/08 ceftaz 01/30 Objective - Exam Narrative Exam: General appearance: alert non communicative, on the vent via trach in mild resp distress, no following commands Eyes: anicteric sclera, moist conjunctivae; PERRLA HENT: Atraumatic; oropharynx limited; Normal external ears. +NGT with greenish secretion Neck: +trach in place; supple, no thyromegaly or lymphadenopathy Lungs: brit coarse BS CV: tachy Abdomen: Soft, tender, +old PEG site no drainage. +iliostomy. Right sided Surgical site x 2 with ostomy bags Extremities: +peripheral edema Skin: sacral area wounds - per wound care STAGE 4 PRESSURE INJURY TO SACRAL MEASURES 7.5X6X2.5, WITH UNDERMINING FROM @9-1 OCLOCK-2.8CM-ULCER CLEANED WITH WOUND MERRY GO ROUND OPERATOR-ULCER NEW - Sacrum wound measuring 9x11cm. Necrotic tissue noted on the wound edges and in the wound bed Now with a wound VAC Psych: somnolent . Neuro: alert non verbal on the vent. Lines: PICC / gutierrez - Constitutional Vitals: Vital Signs Temp Pulse Resp BP Pulse Ox 99.5 F 115 H 18 120/71 98 03/14/17 08:00 03/14/17 10:38 03/14/17 09:03 03/14/17 10:38 03/14/17 10:38 Temperature -Last 24 Hours Temperature 99.5 F Temperature 97.8 F Temperature 98.6 F Temperature 99.1 F Temperature 99.1 F Temperature 98.6 F Temperature 98.6 F - Labs CBC & Chem 7: 02/24/17 10:05 03/14/17 03:30 Labs: Abnormal lab results 03/13/17 03/13/17 03/13/17 Range/Units 11:29 17:39 21:53 Sodium (137-145) mmol/L Chloride (98-107) mmol/L Carbon Dioxide (22-30) mmol/L BUN (7-17) mg/dL Creatinine (0.7-1.2) mg/dL Glucose (65-100) mg/dL POC Glucose 128 H 160 H 147 H (70-105) Calcium (8.4-10.2) mg/dL Phosphorus (2.5-4.5) mg/dL Magnesium (1.7-2.3) mg/dL 03/14/17 Range/Units 03:30 Sodium 133 L (137-145) mmol/L Chloride 95.7 L (98-107) mmol/L Carbon Dioxide 21 L (22-30) mmol/L BUN 37 H (7-17) mg/dL Creatinine 1.8 H (0.7-1.2) mg/dL Glucose 138 H (65-100) mg/dL POC Glucose (70-105) Calcium 8.1 L (8.4-10.2) mg/dL Phosphorus 2.10 L D (2.5-4.5) mg/dL Magnesium 1.60 L (1.7-2.3) mg/dL
[2017-03-14] MEDS: DURAGESIC TD SCH (11:01)
[2017-03-14] MEDS: REGLAN IV SCH ×3 (14:00→23:56)
[2017-03-14 14:44] LABS: Mean Corpuscular HGB Conc 30 % (30-34); Mean Corpuscular Hemoglobin 28 pg (28-32); Mean Corpuscular Volume 91 fl (79-97); Platelet Count 232 K/mm3 (140-440); Red Blood Count 2.18 M/mm3 (3.65-5.03); Red Cell Distribution Width 19.9 % (13.2-15.2)
[2017-03-14 14:49] LABS: Hematocrit 19.8 % (30.3-42.9)
[2017-03-14 15:26] LABS: Anisocytosis 1+; Basophils % (Manual) 0 % (0.0-1.8); Hypochromasia 2+; Stomatocytes 2+; Total Cells Counted 100
[2017-03-14 15:27] LABS: Platelet Estimate Consistent w Auto
[2017-03-14] MEDS ORDERED: NACL 0.9% 500 ML 500 ML IV NR (16:29)
[2017-03-14] MEDS ORDERED: TPN ADULT IV SCH (20:00)
[2017-03-15] MEDS: HumuLIN R SUB-Q SCH ×5 (00:29→17:59)
[2017-03-15] MEDS: LOPRESSOR IV SCH ×4 (05:24→20:45)
[2017-03-15 05:26] LABS: Hematocrit 22.2 % (30.3-42.9); Hemoglobin 6.9 gm/dl (10.1-14.3); Mean Corpuscular HGB Conc 31 % (30-34); Mean Corpuscular Hemoglobin 28 pg (28-32); Mean Corpuscular Volume 91 fl (79-97); Platelet Count 193 K/mm3 (140-440); Red Blood Count 2.42 M/mm3 (3.65-5.03); Red Cell Distribution Width 18.4 % (13.2-15.2)
[2017-03-15] MEDS: FLAGYL 500 MG/100 ML 500 MG/100 ML BAG IV SCH ×3 (05:26→22:11)
[2017-03-15] MEDS: REGLAN IV SCH ×3 (05:26→22:11)
[2017-03-15 05:51] LABS: Calcium 8.8 mg/dL (8.4-10.2)
[2017-03-15] MEDS: CORDARONE 900 MG in D5W 482 ML IV SCH (06:34)
[2017-03-15] MEDS: DUONEB *Not for PRN Use IH SCH ×3 (07:44→19:35)
--- NOTE | 2017-03-15 09:07 | Progress Note ---
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 UF as tolerated. Patient's serum creatinine is noted to be low - due to wasting of muscle mass. Needs to be maintained on dialysis at this time. * hypercalcemia work up - likely due to immobilization * Abx management per ID * Adjust Ca bath with dialysis prn * Transfuse pRBC per primary team. Epogen TIW prn * Vent management per pulm/CCM * Pressors prn for MAP>65 * Dose medications for renal function Subjective Date of service: 03/15/17 Principal diagnosis: Acute resp failure on MVS; S/P Acute CVA; Acute Encephalopathy; JUANITA Interval history: new events from last pm noted Objective - Exam Narrative Exam: Gen. appearance: Patient lying in bed, no apparent distress, 4. restraints HEENT: Normocephalic, atraumatic, pupils equally round and reactive to light, extraocular movement intact, and no sclericterus,. No JVD or thyromegaly or nodule,neck supple, no carotid bruit ,mucous membranes moist, unable to examine oral cavity Heart: S1, S2, regular rate and rhythm Lungs: Clear to auscultation bilaterally, breathing comfortable Abdomen: Positive bowel sounds, nontender, nondistended, no organomegaly Extremity: No edema, cyanosis, clubbing Skin: No rash, nodules, warm, dry Neuro: Difficult to assess, facial droop, moves all 4 extremities - Vital Signs Vital signs: Vital Signs - 12hr 03/14/17 03/14/17 03/14/17 21:15 21:26 21:30 Temperature Pulse Rate 82 81 83 Pulse Rate [ Apical] Pulse Rate [ From Monitor] Pulse Rate [ Left Dorsalis Pedis] Pulse Rate [ Left Radial] Pulse Rate [ Right Dorsalis Pedis] Pulse Rate [ Right Radial] Pulse Rate [ Throughout] Respiratory 17 16 Rate Respiratory Rate [ Throughout] Blood Pressure 104/55 116/64 109/68 O2 Sat by Pulse 100 100 Oximetry O2 Sat by Pulse Oximetry [ Assessment] 03/14/17 03/14/17 03/14/17 21:39 21:45 21:54 Temperature 99.6 F 98.9 F Pulse Rate 80 83 83 Pulse Rate [ Apical] Pulse Rate [ From Monitor] Pulse Rate [ Left Dorsalis Pedis] Pulse Rate [ Left Radial] Pulse Rate [ Right Dorsalis Pedis] Pulse Rate [ Right Radial] Pulse Rate [ Throughout] Respiratory 18 17 16 Rate Respiratory Rate [ Throughout] Blood Pressure 113/66 113/66 112/66 O2 Sat by Pulse 100 100 100 Oximetry O2 Sat by Pulse Oximetry [ Assessment] 03/14/17 03/14/17 03/14/17 22:00 22:30 22:32 Temperature 98.9 F 98.6 F Pulse Rate 82 84 Pulse Rate [ Apical] Pulse Rate [ From Monitor] Pulse Rate [ Left Dorsalis Pedis] Pulse Rate [ Left Radial] Pulse Rate [ Right Dorsalis Pedis] Pulse Rate [ Right Radial] Pulse Rate [ 99 H Throughout] Respiratory 15 18 Rate Respiratory 18 Rate [ Throughout] Blood Pressure 116/67 143/85 O2 Sat by Pulse 100 100 Oximetry O2 Sat by Pulse Oximetry [ Assessment] 03/14/17 03/14/17 03/14/17 23:00 23:01 23:13 Temperature 98.7 F Pulse Rate 82 83 84 Pulse Rate [ Apical] Pulse Rate [ From Monitor] Pulse Rate [ Left Dorsalis Pedis] Pulse Rate [ Left Radial] Pulse Rate [ Right Dorsalis Pedis] Pulse Rate [ Right Radial] Pulse Rate [ 102 H Throughout] Respiratory 20 24 28 H Rate Respiratory 16 Rate [ Throughout] Blood Pressure 108/68 134/81 134/81 O2 Sat by Pulse 100 100 100 Oximetry O2 Sat by Pulse Oximetry [ Assessment] 03/14/17 03/14/17 03/15/17 23:15 23:30 00:00 Temperature 98.8 F 98.7 F Pulse Rate 80 85 Pulse Rate [ 80 Apical] Pulse Rate [ 80 From Monitor] Pulse Rate [ 80 Left Dorsalis Pedis] Pulse Rate [ 80 Left Radial] Pulse Rate [ 80 Right Dorsalis Pedis] Pulse Rate [ 80 Right Radial] Pulse Rate [ Throughout] Respiratory 22 26 H Rate Respiratory Rate [ Throughout] Blood Pressure 116/60 123/58 O2 Sat by Pulse 99 100 Oximetry O2 Sat by Pulse 98 Oximetry [ Assessment] 03/15/17 03/15/17 03/15/17 01:00 02:00 03:01 Temperature Pulse Rate 81 82 84 Pulse Rate [ Apical] Pulse Rate [ From Monitor] Pulse Rate [ Left Dorsalis Pedis] Pulse Rate [ Left Radial] Pulse Rate [ Right Dorsalis Pedis] Pulse Rate [ Right Radial] Pulse Rate [ Throughout] Respiratory 23 23 23 Rate Respiratory Rate [ Throughout] Blood Pressure 116/78 116/78 111/78 O2 Sat by Pulse 100 100 100 Oximetry O2 Sat by Pulse Oximetry [ Assessment] 03/15/17 03/15/17 03/15/17 03:24 03:46 04:00 Temperature 99.2 F Pulse Rate 85 Pulse Rate [ Apical] Pulse Rate [ From Monitor] Pulse Rate [ Left Dorsalis Pedis] Pulse Rate [ Left Radial] Pulse Rate [ Right Dorsalis Pedis] Pulse Rate [ Right Radial] Pulse Rate [ Throughout] Respiratory Rate Respiratory Rate [ Throughout] Blood Pressure 111/78 O2 Sat by Pulse 100 100 Oximetry O2 Sat by Pulse Oximetry [ Assessment] 03/15/17 03/15/17 03/15/17 04:01 05:00 05:24 Temperature Pulse Rate 85 83 72 Pulse Rate [ Apical] Pulse Rate [ From Monitor] Pulse Rate [ Left Dorsalis Pedis] Pulse Rate [ Left Radial] Pulse Rate [ Right Dorsalis Pedis] Pulse Rate [ Right Radial] Pulse Rate [ Throughout] Respiratory 24 14 Rate Respiratory Rate [ Throughout] Blood Pressure 89/45 100/58 111/61 O2 Sat by Pulse 100 100 Oximetry O2 Sat by Pulse Oximetry [ Assessment] 03/15/17 03/15/17 03/15/17 06:00 07:01 07:44 Temperature Pulse Rate 89 76 Pulse Rate [ Apical] Pulse Rate [ From Monitor] Pulse Rate [ Left Dorsalis Pedis] Pulse Rate [ Left Radial] Pulse Rate [ Right Dorsalis Pedis] Pulse Rate [ Right Radial] Pulse Rate [ 77 Throughout] Respiratory 17 14 Rate Respiratory 16 Rate [ Throughout] Blood Pressure 86/48 104/59 O2 Sat by Pulse 100 100 Oximetry O2 Sat by Pulse Oximetry [ Assessment] 03/15/17 03/15/17 03/15/17 07:45 07:50 08:33 Temperature Pulse Rate 78 Pulse Rate [ Apical] Pulse Rate [ From Monitor] Pulse Rate [ Left Dorsalis Pedis] Pulse Rate [ Left Radial] Pulse Rate [ Right Dorsalis Pedis] Pulse Rate [ Right Radial] Pulse Rate [ Throughout] Respiratory Rate Respiratory Rate [ Throughout] Blood Pressure 104/59 94/39 O2 Sat by Pulse 100 Oximetry O2 Sat by Pulse 100 Oximetry [ Assessment] - Lab 03/15/17 05:03 03/15/17 05:03 Most recent lab results ABG pH 7.450 pH Units (7.350-7.450) 12/05/16 Unknown ABG pCO2 29.6 mm Hg 12/05/16 Unknown ABG pO2 75.2 mm Hg (80.0-90.0) L 12/05/16 Unknown ABG HCO3 20.1 mmol/L (20.0-26.0) 12/05/16 Unknown ABG O2 Saturation 96.8 % (95.0-99.0) 12/05/16 Unknown Calcium 8.8 mg/dL (8.4-10.2) 03/15/17 05:03 Phosphorus 2.80 mg/dL (2.5-4.5) D 03/15/17 05:03 Magnesium 2.20 mg/dL (1.7-2.3) 03/15/17 05:03 Urine Creatinine 19.7 mg/dL (0.1-20.0) 11/12/16 10:18 Urine Sodium 36 mEq/L 09/16/16 19:19 Urine Total Protein 16 mg/dL (5-11.8) H 09/16/16 19:19
[2017-03-15] MEDS: LEVOPHED DRIP 4 MG/NS 250 ML 4 MG/250 ML BAG IV SCH (09:48)
[2017-03-15] MEDS: MAXIPIME 1 GM in NACL 0.9% 20 ML IV SCH (09:50)
[2017-03-15] MEDS: HEPARIN SUB-Q SCH ×2 (09:53→22:11)
[2017-03-15] MEDS: PEPCID IV SCH (09:53)
--- NOTE | 2017-03-15 11:58 | Progress Note ---
Assessment and Plan Assessment and plan: 47-year-old female patient multiple medical problems, large CVA , hypoxic encephalopathy , status post cardiac arrest , vegetative state , atrial fibrillation , sepsis , aspiration pneumonia , end-stage renal disease on hemodialysis , multiple sacral and lower extremity decubiti requiring debridement , severe protein calorie malnutrition peritonitis / perforation, multiple surgeries, DO NOT RESUSCITATE status,prolonged hospital stay and poor prognosis, --Acute respiratory failure status post tracheostomy vent dependent -- sepsis,recurrent enterococcal bacteremia, continue antibiotics per ID, --Hypotension; continue Levophed --A. fib with rapid ventricular rate; continue amiodarone drip --Status post cardiac arrest/anoxic encephalopathy/status post tracheostomy --Persistent agitated state/DO NOT RESUSCITATE status, family not ready for hospice --Enterococcal septicemia; continue current management ID following, PRINCE negative for vegetations --Peritonitis ; due to gastric perforation, status post exploratory laparotomy, but gastrostomy, abdominal washout and drain placement, on TPN --End-stage renal disease on hemodialysis --Large CVA; continue current management --Aspiration pneumonia; completed multiple courses of antibiotics, ID following --Severe protein calorie malnutrition; nutrition consult and supportive care --Multiple sacral and lower extremity decubitus ulcers; status post debridement , continue wound care --DO NOT RESUSCITATE status Poor prognosis, had many family meetings in the past, family of areas of patient 's poor prognosis Critical care time 31 minutes - The high probability of a clinically significant, sudden or life threatening deterioration of the [neurologic, CV] system(s) required my full and direct attention, intervention and personal management. The aggregate critical care time was [31] minutes. This time is in addition to time spent performing reported procedures but includes the following: [x] Data Review and interpretation [x] Patient assessment and monitoring of vital signs [x] Documentation [x] Medication orders and management History Interval history: Patient seen and evaluated, medical records reviewed Patient underwent abdominal drain placement, draining well Afebrile, tracheostomy on vent Vital signs reviewed Hospitalist Physical - Constitutional Vitals: Temp Pulse Resp BP Pulse Ox 98.1 F 78 16 103/61 100 03/15/17 08:00 03/15/17 07:45 03/15/17 07:44 03/15/17 11:53 03/15/17 11:53 General appearance: Present: no acute distress, cachectic, other (spontaneous opening of eyes, unresponsive) - EENT Eyes: Present: PERRL, EOM intact - Neck Neck: Present: supple, normal ROM - Respiratory Respiratory effort: normal Respiratory: bilateral: diminished, rhonchi, negative: rales, wheezing - Cardiovascular Rhythm: regular Heart Sounds: Present: S1 & S2 - Extremities Extremities: abnormal (contracted) Extremity abnormal: edema - Abdominal General gastrointestinal: soft, non-tender, non-distended, normal bowel sounds - Integumentary Integumentary: Present: clear, warm - Psychiatric Psychiatric: other ( non-communicative) - Neurologic Neurologic: other (noncommunicative) Results - Labs CBC & Chem 7: 03/15/17 05:03 03/15/17 05:03 Labs: Laboratory Last Values WBC 15.2 K/mm3 (4.5-11.0) H 03/15/17 05:03 RBC 2.42 M/mm3 (3.65-5.03) L 03/15/17 05:03 Hgb 6.9 gm/dl (10.1-14.3) L 03/15/17 05:03 Hct 22.2 % (30.3-42.9) L 03/15/17 05:03 MCV 91 fl (79-97) 03/15/17 05:03 MCH 28 pg (28-32) 03/15/17 05:03 MCHC 31 % (30-34) 03/15/17 05:03 RDW 18.4 % (13.2-15.2) H 03/15/17 05:03 Plt Count 193 K/mm3 (140-440) 03/15/17 05:03 Lymph % (Auto) Remelt Operator 03/14/17 14:30 [place] % (Auto) Remelt Operator 03/14/17 14:30 Eos % (Auto) Remelt Operator 03/14/17 14:30 Baso % (Auto) Remelt Operator 03/14/17 14:30 Lymph # Remelt Operator 03/14/17 14:30 [place] # Remelt Operator 03/14/17 14:30 Eos # Remelt Operator 03/14/17 14:30 Baso # Remelt Operator 03/14/17 14:30 Add Manual Diff Complete 03/14/17 14:30 Total Counted 100 03/14/17 14:30 Seg Neutrophils % Remelt Operator 03/14/17 14:30 Seg Neuts % (Manual) 70.0 % (40.0-70.0) 03/14/17 14:30 Band Neutrophils % 0 % 03/14/17 14:30 Lymphocytes % (Manual) 13.0 % (13.4-35.0) L 03/14/17 14:30 Reactive Lymphs % (Man) 1.0 % 03/14/17 14:30 Monocytes % (Manual) 15.0 % (0.0-7.3) H 03/14/17 14:30 Eosinophils % (Manual) 1.0 % (0.0-4.3) 03/14/17 14:30 Basophils % (Manual) 0 % (0.0-1.8) 03/14/17 14:30 Metamyelocytes % 0 % 03/14/17 14:30 Myelocytes % 0 % 03/14/17 14:30 Promyelocytes % 0 % 03/14/17 14:30 Blast Cells % 0 % 03/14/17 14:30 Nucleated RBC % Not Reportable 03/14/17 14:30 Seg Neutrophils # Remelt Operator 03/14/17 14:30 Seg Neutrophils # Man 12.3 K/mm3 (1.8-7.7) H 03/14/17 14:30 Band Neutrophils # 0.0 K/mm3 03/14/17 14:30 Lymphocytes # (Manual) 2.3 K/mm3 (1.2-5.4) 03/14/17 14:30 Abs React Lymphs (Man) 0.2 K/mm3 03/14/17 14:30 Monocytes # (Manual) 2.6 K/mm3 (0.0-0.8) H 03/14/17 14:30 Eosinophils # (Manual) 0.2 K/mm3 (0.0-0.4) 03/14/17 14:30 Basophils # (Manual) 0.0 K/mm3 (0.0-0.1) 03/14/17 14:30 Metamyelocytes # 0.0 K/mm3 03/14/17 14:30 Myelocytes # 0.0 K/mm3 03/14/17 14:30 Promyelocytes # 0.0 K/mm3 03/14/17 14:30 Blast Cells # 0.0 K/mm3 03/14/17 14:30 Pathologist Review 07/25/17 04:00 WBC Morphology Not Reportable 03/14/17 14:30 Hypersegmented Neuts Not Reportable 03/14/17 14:30 Hyposegmented Neuts Not Reportable 03/14/17 14:30 Hypogranular Neuts Not Reportable 03/14/17 14:30 Smudge Cells Not Reportable 03/14/17 14:30 Toxic Granulation Not Reportable 03/14/17 14:30 Toxic Vacuolation Not Reportable 03/14/17 14:30 Dohle Bodies Not Reportable 03/14/17 14:30 Pelger-Huet Anomaly Not Reportable 03/14/17 14:30 Jasmina Rods Not Reportable 03/14/17 14:30 Platelet Estimate Consistent w auto 03/14/17 14:30 Clumped Platelets Not Reportable 03/14/17 14:30 Plt Clumps, EDTA Not Reportable 03/14/17 14:30 Large Platelets Not Reportable 03/14/17 14:30 Giant Platelets Not Reportable 03/14/17 14:30 Platelet Satelliting Not Reportable 03/14/17 14:30 Plt Morphology Comment Not Reportable 03/14/17 14:30 RBC Morphology Not Reportable 03/14/17 14:30 Dimorphic RBCs Not Reportable 03/14/17 14:30 Polychromasia Not Reportable 03/14/17 14:30 Hypochromasia 2+ 03/14/17 14:30 Poikilocytosis Not Reportable 03/14/17 14:30 Anisocytosis 1+ 03/14/17 14:30 Microcytosis Not Reportable 03/14/17 14:30 Macrocytosis Not Reportable 03/14/17 14:30 Spherocytes Not Reportable 03/14/17 14:30 Pappenheimer Bodies Not Reportable 03/14/17 14:30 Sickle Cells Not Reportable 03/14/17 14:30 Target Cells Not Reportable 03/14/17 14:30 Tear Drop Cells Not Reportable 03/14/17 14:30 Ovalocytes Not Reportable 03/14/17 14:30 Stomatocytes 2+ 03/14/17 14:30 Helmet Cells Not Reportable 03/14/17 14:30 [place] Bodies Not Reportable 03/14/17 14:30 [place] Rings Not Reportable 03/14/17 14:30 Chuck Cells Not Reportable 03/14/17 14:30 Bite Cells Not Reportable 03/14/17 14:30 Crenated Cell Not Reportable 03/14/17 14:30 Elliptocytes Not Reportable 03/14/17 14:30 Acanthocytes (Spur) Not Reportable 03/14/17 14:30 Rouleaux Not Reportable 03/14/17 14:30 Hemoglobin C Crystals Not Reportable 03/14/17 14:30 Schistocytes Not Reportable 03/14/17 14:30 Malaria parasites Not Reportable 03/14/17 14:30 ESR > 140.0 mm/Hr (0-20) 09/08/16 11:48 Jun Bodies Not Reportable 03/14/17 14:30 Hem Pathologist Commnt No 03/14/17 14:30 PT 15.4 Sec. (12.2-14.9) H 01/13/17 15:50 INR 1.16 (0.87-1.13) H 01/13/17 15:50 APTT 33.0 Sec. (24.2-36.6) 10/09/16 03:45 Thrombin Time 16.8 Sec. (15.1-19.6) 09/03/16 00:10 Fibrinogen 750 mg/dl (211-480) H 09/08/16 11:48 Lupus Anticoagulant see below 09/12/16 09:59 LA PTT Baseline See scanned report 09/12/16 09:59 dRVVT Confirm Interp Positive (Negative) H 09/12/16 09:59 dRVVT Screen 50:50 See scanned report 09/12/16 09:59 dRVVT Mix Interpret See scanned report 09/12/16 09:59 Protein C Antigen 122 % (70-140) 09/08/16 15:35 Free Protein S 97 % normal (50-147) 09/08/16 15:35 Total Protein S 109 % (70-140) 09/08/16 15:35 Antithrombin III Ag 100 % (80-120) 09/08/16 15:35 Heparin Anti-Xa, Unfract Negative (Negative) 09/29/16 13:35 Factor V Activity 182 % (65-150) H 09/08/16 15:35 POC ABG pH 7.518 (7.35-7.45) H 03/03/17 20:17 ABG pH 7.450 pH Units (7.350-7.450) 12/05/16 Unknown POC ABG pCO2 28.8 (35-45) L 03/03/17 20: ABG pCO2 29.6 mm Hg 12/05/16 Unknown POC ABG pO2 61 (80-105) L 03/03/17 20: ABG pO2 75.2 mm Hg (80.0-90.0) L 12/05/16 Unknown POC ABG HCO3 23.4 03/03/17 20: ABG HCO3 20.1 mmol/L (20.0-26.0) 12/05/16 Unknown POC ABG Total CO2 24 03/03/17 20: POC ABG O2 Sat 94 03/03/17 20: ABG O2 Saturation 96.8 % (95.0-99.0) 12/05/16 Unknown ABG O2 Content 9.9 (0.0-44) 12/05/16 Unknown POC ABG Base Excess 0 03/03/17 20: ABG Base Excess -3.4 mmol/L (-2.0-3.0) L 12/05/16 Unknown ABG Hemoglobin 7.4 gm/dl (12.0-16.0) L 12/05/16 Unknown ABG Carboxyhemoglobin 1.8 % (0.0-5.0) 12/05/16 Unknown ABG Methemoglobin 0.6 % (0.0-1.5) 12/05/16 Unknown Oxyhemoglobin 94.5 % (95.0-99.0) L 12/05/16 Unknown FiO2 40 % 03/03/17 20:17 Sodium 137 mmol/L (137-145) 03/15/17 05:03 Potassium 3.5 mmol/L (3.6-5.0) L 03/15/17 05:03 Chloride 98.6 mmol/L (98-107) 03/15/17 05:03 Carbon Dioxide 23 mmol/L (22-30) 03/15/17 05:03 Anion Gap 19 mmol/L 03/15/17 05:03 BUN 54 mg/dL (7-17) H 03/15/17 05:03 Creatinine 2.6 mg/dL (0.7-1.2) H 03/15/17 05:03 Estimated GFR 24 ml/min 03/15/17 05:03 BUN/Creatinine Ratio 21 % 03/15/17 05:03 Glucose 127 mg/dL (65-100) H 03/15/17 05:03 POC Glucose 106 (70-105) H 03/15/17 05:04 Osmolality 351 Mosm/kg 09/16/16 11:47 Lactic Acid 2.30 mmol/L (0.7-2.0) H* 01/09/17 08:22 Calcium 8.8 mg/dL (8.4-10.2) 03/15/17 05:03 Ionized Calcium 6.0 mg/dL (4.8-5.6) H 02/15/17 19:08 Phosphorus 2.80 mg/dL (2.5-4.5) D 03/15/17 05:03 Magnesium 2.20 mg/dL (1.7-2.3) 03/15/17 05:03 Total Bilirubin 0.50 mg/dL (0.1-1.2) 03/06/17 03:52 Direct Bilirubin 0.2 mg/dL (0-0.2) 01/28/17 04:00 Indirect Bilirubin 0.3 mg/dL 01/28/17 04:00 AST 18 units/L (5-40) 03/06/17 03:52 ALT 18 units/L (7-56) 03/06/17 03:52 Alkaline Phosphatase 165 units/L (35-129) H 03/06/17 03:52 Ammonia 27.0 umol/L (25-60) 09/07/16 08:37 Lactate Dehydrogenase 170 units/L (91-180) 01/13/17 15:50 Total Creatine Kinase 121 units/L (30-135) 09/29/16 20:12 CK-MB (CK-2) < 1.0 ng/mL (0.0-4.0) 09/29/16 20:12 CK-MB (CK-2) Rel Index 0.8 (0-4) 09/29/16 20:12 Troponin T 0.204 ng/mL (0.00-0.029) H* 09/29/16 20:12 C-Reactive Protein 19.50 mg/dL (0.00-1.30) H 03/14/17 12:51 Total Protein 7.0 g/dL (6.3-8.2) 03/06/17 03:52 Albumin 1.5 g/dL (3.9-5) L 03/06/17 03:52 Albumin/Globulin Ratio 0.3 % 03/06/17 03:52 Prealbumin 0.110 g/L (0.200-0.400) L 12/29/16 05:15 Triglycerides 55 mg/dL (2-149) 02/06/17 04:45 Cholesterol 31 mg/dL (50-199) L 09/29/16 20:12 LDL Cholesterol Direct 4 mg/dL (50-130) L 09/29/16 20:12 HDL Cholesterol 3 mg/dL (40-59) L 09/29/16 20:12 Cholesterol/HDL Ratio 10.33 % 09/29/16 20:12 Angiotensin Convert Enz See scanned report 09/08/16 11:48 Renin 0.99 ng/mL/h (0.25-5.82) 10/07/16 10:56 Aldosterone <1 ng/dL () 10/07/16 10:56 Aldosterone/Renin Dir see below 10/07/16 10:56 Serotonin Release Assay See scanned report 09/29/16 13:35 25-OH Vitamin D Total 13 ng/mL (30-100) L 02/15/17 19:08 25-Hydroxy Vitamin D2 . 02/15/17 19:08 25-Hydroxy Vitamin D3 . 02/15/17 19:08 TSH 1.010 mlU/mL (0.270-4.200) 09/07/16 08:37 HCG, Qual Negative (Negative) 09/03/16 00:10 PTH Intact 10.88 pg/mL (15-65) L 02/15/17 19:08 Total Cortisol 18.2 mcg/dL () 02/02/17 20:09 Urine Color Yellow (Yellow) 11/05/16 13:09 Urine Turbidity Clear (Clear) 11/05/16 13:09 Urine pH 9.0 (5.0-7.0) H 11/05/16 13:09 Ur Specific [place] 1.011 (1.003-1.030) 11/05/16 13:09 Urine Protein 100 mg/dl mg/dL (Negative) 11/05/16 13:09 Urine Glucose (UA) Neg mg/dL (Negative) 11/05/16 13:09 Urine Ketones Neg mg/dL (Negative) 11/05/16 13:09 Urine Blood Neg (Negative) 11/05/16 13:09 Urine Nitrite Neg (Negative) 11/05/16 13:09 Urine Bilirubin Neg (Negative) 11/05/16 13:09 Urine Urobilinogen < 2.0 mg/dL (<2.0) 11/05/16 13:09 Ur Leukocyte Esterase Neg (Negative) 11/05/16 13:09 Urine WBC (Auto) 4.0 /HPF (0.0-6.0) 11/05/16 13:09 Urine RBC (Auto) 1.0 /HPF (0.0-6.0) 11/05/16 13:09 U Epithel Cells (Auto) 1.0 /HPF (0-13.0) 10/07/16 18:30 Urine Bacteria (Auto) 4+ /HPF (Negative) 11/05/16 13:09 Urine WBC Clumps 2+ /HPF 09/07/16 02:47 Hyaline Casts 4 /LPF 09/07/16 02:47 Urine Mucus Few /HPF 10/07/16 18:30 Urine Yeast (Budding) 3+ /HPF 10/07/16 18:30 Urine Eosinophils None seen (None Seen) 09/07/16 16:00 Urine Total Volume 950 11/12/16 10:18 Urine Creatinine 19.7 mg/dL (0.1-20.0) 11/12/16 10:18 Height (in) 65.0 inches 11/12/16 10:18 Weight (lb) 181.0 lbs 11/12/16 10:18 Creatinine Clearance 5 11/12/16 10:18 Urine Sodium 36 mEq/L 09/16/16 19:19 Urine Total Protein 16 mg/dL (5-11.8) H 09/16/16 19:19 Fluid Type Pleural 01/13/17 12:10 Fluid Color Yellow 01/13/17 12:10 Fluid Appearance Hazy 01/13/17 12:10 Fluid WBC 182 /mm3 01/13/17 12:10 Fluid RBC 41 /mm3 01/13/17 12:10 Fluid Seg Neutrophils 85.0 % 01/13/17 12:10 Fluid Lymphocytes 8.0 % 01/13/17 12:10 Fluid Reactive Lymphs 0 % 01/13/17 12:10 Fluid Monocytes 6.0 % 01/13/17 12:10 Fluid Eosinophils 1.0 % 01/13/17 12:10 Fluid Basophils 0 % 01/13/17 12:10 Fluid Total Protein 3.0 (15.0-45.0) L 01/13/17 12:10 Fluid LDH 1322 01/13/17 12:10 Fluid Comment Diff performed 01/13/17 12:10 Vancomycin Trough 2.3 ug/mL (5.0-20.0) L 09/21/16 13:00 Random Vancomycin 26.0 ug/mL (0-40.0) 03/13/17 05:39 Urine Opiates Screen Presumptive negative 09/03/16 15:11 Urine Methadone Screen Presumptive positive 09/03/16 15:11 Ur Barbiturates Screen Presumptive positive 09/03/16 15:11 Ur Phencyclidine Scrn Presumptive negative 09/03/16 15:11 Ur Amphetamines Screen Presumptive negative 09/03/16 15:11 U Benzodiazepines Scrn Presumptive negative 09/03/16 15:11 Urine Cocaine Screen Presumptive negative 09/03/16 15:11 U Marijuana (THC) Screen Presumptive positive 09/03/16 15:11 Drugs of Abuse Note Disclamer 09/03/16 15:11 Rheumatoid Factor 24 IU/ml (0-13) H 09/08/16 11:48 SAHIL Screen Negative (Negative) 09/07/16 09:20 Proteinase 3 (PR3) Ab <1.0 AI (<1.0) 09/07/16 09:20 Myeloperoxidase Ab <1.0 AI (<1.0) 09/07/16 09:20 Sjogren's Antibody <1.0 AI (<1.0) 09/08/16 15:35 Scl-70 Scleroderma Ab <1.0 AI (<1.0) 09/08/16 15:35 Centromere B Antibody <1.0 AI (<1.0) 09/08/16 12:02 Heparin-induced Plt Ab Negative (Negative) 09/29/16 13:35 UF Heparin High Dose 11 % Release 09/29/16 13:35 SUDHIR UFH Low Dose 0.1 6 % Release 09/29/16 13:35 SUDHIR UFH Low Dose 0.5 8 % Release 09/29/16 13:35 Cardiolipid IgG Ab <14 GPL (<=14) 09/12/16 09:59 Cardiolipid IgA Ab <11 APL (<=11) 09/12/16 09:59 Cardiolipid IgM Ab <12 MPL (<=12) 09/12/16 09:59 Complement C3 148 mg/dL (90-180) 09/07/16 09:20 Complement C4 58 mg/dL (16-47) H 09/07/16 09:20 RPR Nonreactive (Nonreactive) 09/08/16 11:48 Hepatitis A IgM Ab Non-reactive (NonReactive) 09/24/16 14:40 Hep Bs Antigen Non-reactive (Negative) 09/24/16 14:40 Hep B Core IgM Ab Non-reactive (NonReactive) 09/24/16 14:40 Hepatitis C Antibody Non-reactive (NonReactive) 09/24/16 14:40 HIV 1&2 Antibody Rapid Non react (Non React) 09/08/16 11:48 HIV P24 Antigen Non react (Non React) 09/08/16 11:48 Miscellaneous Test Flexitest 1 H 01/09/17 18:45 Blood Type A POSITIVE 03/14/17 16:55 Antibody Screen Negative 03/14/17 16:55 DELORIS Antibody Screen Negative 11/24/16 11:20 Crossmatch See Detail 03/14/17 16:55
--- NOTE | 2017-03-15 13:19 | Operative Report ---
Operative Report Operative Report: EXAM: ULTRASOUND GUIDED PLACEMENT OF INTRA-ABDOMINAL DRAIN CLINICAL INDICATION: PATIENT WITH INTRA-ABDOMINAL FLUID COLLECTION DATE: 03/15/2017 PROCEDURE: Following an excellent addition of the risks, benefits and alternatives; written informed consent was obtained from the patient's next of kin. The patient's procedure was performed at bedside in the ICU. Initial ultrasound evaluation of the abdomen demonstrated a fluid collection within the anterior aspect of the abdomen. The patient's left lower quadrant was prepped and draped in the usual sterile fashion. 1% lidocaine was used for anesthesia. Under ultrasound guidance, an 18-gauge 10 cm trocar needle was advanced into the fluid collection. The trocar was removed and a 0.035 guidewire advanced through the needle and coiled within the fluid collection. The needle was removed. Following serial dilation, a 12 Spanish pigtail drainage catheter was placed over the guidewire and advanced to position the pigtail within the central aspect of the fluid collection. 30 mL's of dark purulent fluid was aspirated and sent for laboratory analysis. The catheter was then placed to drainage of. The catheter was securely fastened in's place with a 2-0 silk suture and sta-fix device. Sterile dressings were then applied. The patient tolerated the procedure well. There were no immediate post procedure complications. Sedation was not utilize secondary to patient's altered mental status. IMPRESSION: 1) Ultrasound-guided placement of 12-F intra-abdominal drain with samples of fluid sent for laboratory analysis.
[2017-03-15] MEDS: HEPARIN IV PRN (17:11)
--- NOTE | 2017-03-15 18:28 | Progress Note ---
Assessment and Plan Assessment: 1) Recurrent SIRS: new septic shock ? - Likely due to recurrent Enterococcus bacteremia ? intrabdominal source ? PIV infected 2) History of Peritonitis: from gastric perforation from dislodged PEG with significant ascites -S/P exlap, repair of gastric perforation with wedge gastrectomy, abdominal washout, drain placement on 10/05 3) History of Candidemia: -Blood cultures positive for Silvia albicans on 09/23 and 09/25 -Blood cultures negative on 09/30 -PICC line changed on 10/03 -Source ? gastric perf (PEG placed on 09/20) +/- TPN +/- central lines -TTE 10/07 no vegetations -PICC exchanged on 10/03 -fully treated with micafungin for 14 days last day 10/13 4) History CA-UTI s/p gutierrez exchanged 5) Diarrhea - ? etiology ? antibiotic-induced, not better. 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 from GI bleed 13) Recent abdominal wall abscess at surgical site-treated 14 ) Recent Enterococcal bacteremia from PICC line infection. 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 -S/P debridement at bedside - new wound cx 01/24 +Proteus and MDR Pseudomonas (resistant to meropenem and cefepime/sensitive to ceftazidime) and wound VAC placement -CRP=24 --> 8 16) Presumed VAP: sputum + MDR Pseudomonas / Proteus / pleural effusion s/p thoracentesis 17) Resp failure - better 18) Perforated bowel: Ct showed presumed perf bowel with free air -repeat CT showed large 21x4.2 cm collection -s/p CT guided drainage -30 mL's of dark purulent fluid was aspirated 19) Enterococcal septicemia from IV cath. TTE no vegetations 18) PIV site infection s/p line removed on 03/09 tip + Enterococcus Plan: -f/u drainage cultures -continue cefepime and flagyl -day 5 -continue vancomycin for now total 14 days from perm cath removal until 03/16 poor prognosis Thank you for your consultation, will follow up with you. Pauline Carias MD Infectious Diseases Specialist [facility] ([facility]) M [phone] O [phone] Subjective Date of service: 03/15/17 Principal diagnosis: Acute resp failure on MVS; S/P Acute CVA; Acute Encephalopathy; JUANITA Interval history: Interval history: remains on the vent, tachy on monitor, on amiodarone gtt, had fever on 03/05, fever resolved, on levophed at 2 mcg/min Microbiology: Blood cultures: 09/13 neg 8/ Silvia albicans 09/25 Silvia 09/29 neg 10/07 neg 11/05 neg 11/07 ngtd 11/22 E faecalis 1 of 4 bottles 11/25 neg 12/27 neg 01/09 ngtd 02/14 ngtd 02/27 Enterococcus durans 1 of 4 bottles 03/06 ngtd PIV tip 03/09 Enterococcus, INSURANCE SALES ASSISTANT, Proteus Urine cultures: 09/10 neg 09/13 neg 8/ 10-100K mixed species 10/07 neg 11/05 VRE 11/07 mixed bacteria Respiratory cultures: 09/07 neg 09/13 neg 09/23 neg 11/07 MDR Pseudomonas 10 tracheal + VRE 01/09 Pseudomonas x 3 and Proteues Pleural effusion: ngtd Wound cultures: 10/17 abd wall wound purulence + Pseudomonas MDR 01/24 GNRs Stool cultures: cath tip 11/07 + INSURANCE SALES ASSISTANT Current Antimicrobials: cefepime 03/09 flagyl 03/09 vanco Previous Antimicrobials: Zosyn 10/07 Vancomycin PO 10/01 Metronidazole 09/25 Micafungin 09/27-10/13 Meropenem 10/10 Vanco 10/17 zosyn 10/21 Cefepime 11/10 vancomyin 11/07 fluconazole 10/19 cefepime 10/29levaquin 11/05 vanco 11/23 meropenem 01/08 ceftaz 01/30 Objective - Exam Narrative Exam: General appearance: alert non communicative, on the vent via trach in mild resp distress, no following commands Eyes: anicteric sclera, moist conjunctivae; PERRLA HENT: Atraumatic; oropharynx limited; Normal external ears. +NGT with greenish secretion Neck: +trach in place; supple, no thyromegaly or lymphadenopathy Lungs: brit coarse BS CV: tachy Abdomen: Soft, tender, +old PEG site no drainage. +iliostomy. Right sided Surgical site x 2 with ostomy bags. +drain with copious purulence Extremities: +peripheral edema Skin: sacral area wounds - per wound care STAGE 4 PRESSURE INJURY TO SACRAL MEASURES 7.5X6X2.5, WITH UNDERMINING FROM @9-1 OCLOCK-2.8CM-ULCER CLEANED WITH WOUND LEAD INSTALLER-ULCER NEW - Sacrum wound measuring 9x11cm. Necrotic tissue noted on the wound edges and in the wound bed Now with a wound VAC Psych: somnolent . Neuro: alert non verbal on the vent. Lines: PICC / gutierrez - Constitutional Vitals: Vital Signs Temp Pulse Resp BP Pulse Ox 98.6 F 93 H 34 H 96/57 91 03/15/17 17:05 03/15/17 18:00 03/15/17 18:00 03/15/17 18:00 03/15/17 17:05 Temperature -Last 24 Hours Temperature 98.6 F Temperature 98.6 F Temperature 98.6 F Temperature 98.1 F Temperature 99.2 F Temperature 98.7 F Temperature 98.8 F Temperature 98.7 F Temperature 98.6 F Temperature 98.9 F Temperature 98.9 F Temperature 99.6 F Temperature 99.6 F - Labs CBC & Chem 7: 03/15/17 05:03 03/15/17 05:03 Labs: Abnormal lab results 03/14/17 03/14/17 03/14/17 Range/Units 05:19 16:55 23:31 WBC (4.5-11.0) K/mm3 RBC (3.65-5.03) M/mm3 Hgb (10.1-14.3) gm/dl Hct (30.3-42.9) % RDW (13.2-15.2) % Potassium (3.6-5.0) mmol/L BUN (7-17) mg/dL Creatinine (0.7-1.2) mg/dL Glucose (65-100) mg/dL POC Glucose 159 H 176 H (70-105) Crossmatch See Detail 03/15/17 03/15/17 03/15/17 Range/Units 05:03 05:03 05:04 WBC 15.2 H (4.5-11.0) K/mm3 RBC 2.42 L (3.65-5.03) M/mm3 Hgb 6.9 L (10.1-14.3) gm/dl Hct 22.2 L (30.3-42.9) % RDW 18.4 H (13.2-15.2) % Potassium 3.5 L (3.6-5.0) mmol/L BUN 54 H (7-17) mg/dL Creatinine 2.6 H (0.7-1.2) mg/dL Glucose 127 H (65-100) mg/dL POC Glucose 106 H (70-105) Crossmatch 03/15/17 Range/Units 12:52 WBC (4.5-11.0) K/mm3 RBC (3.65-5.03) M/mm3 Hgb (10.1-14.3) gm/dl Hct (30.3-42.9) % RDW (13.2-15.2) % Potassium (3.6-5.0) mmol/L BUN (7-17) mg/dL Creatinine (0.7-1.2) mg/dL Glucose (65-100) mg/dL POC Glucose 141 H (70-105) Crossmatch
[2017-03-15] MEDS ORDERED: TPN ADULT IV SCH (20:00)
[2017-03-15] MEDS ORDERED: INTRALIPID 20% 250 ML IV SCH (20:00)
[2017-03-15] MEDS: VANCOMYCIN VIAL 1,000 MG in NACL 0.9% 100 ML IV SCH (20:56)
[2017-03-16] MEDS: HumuLIN R SUB-Q SCH ×4 (00:31→18:29)
[2017-03-16] MEDS: LOPRESSOR IV SCH ×4 (02:00→20:00)
[2017-03-16 04:37] LABS: Calcium 7.9 mg/dL (8.4-10.2)
[2017-03-16] MEDS: REGLAN IV SCH ×4 (06:39→21:02)
[2017-03-16] MEDS: FLAGYL 500 MG/100 ML 500 MG/100 ML BAG IV SCH ×3 (06:39→21:03)
[2017-03-16] MEDS: DUONEB *Not for PRN Use IH SCH ×3 (08:38→19:35)
[2017-03-16] MEDS ORDERED: KPHOS 30 MMOL in NACL 0.9% 500 ML 500 ML IV ONE (09:04)
[2017-03-16] MEDS: PEPCID IV SCH (09:05)
[2017-03-16] MEDS: MAXIPIME 1 GM in NACL 0.9% 20 ML IV SCH (09:06)
[2017-03-16] MEDS: HEPARIN SUB-Q SCH ×3 (09:06→21:04)
--- NOTE | 2017-03-16 09:37 | Progress Note ---
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 UF as tolerated. Patient's serum creatinine is noted to be low - due to wasting of muscle mass. Needs to be maintained on dialysis at this time. * hypercalcemia work up - likely due to immobilization * Abx management per ID * Adjust Ca bath with dialysis prn * Transfuse pRBC per primary team. Epogen TIW prn * Vent management per pulm/CCM * Pressors prn for MAP>65 * Dose medications for renal function Subjective Date of service: 03/16/17 Principal diagnosis: Acute resp failure on MVS; S/P Acute CVA; Acute Encephalopathy; JUANITA Interval history: new events from last pm noted Objective - Exam Narrative Exam: Gen. appearance: Patient lying in bed, no apparent distress, 4. restraints HEENT: Normocephalic, atraumatic, pupils equally round and reactive to light, extraocular movement intact, and no sclericterus,. No JVD or thyromegaly or nodule,neck supple, no carotid bruit ,mucous membranes moist, unable to examine oral cavity Heart: S1, S2, regular rate and rhythm Lungs: Clear to auscultation bilaterally, breathing comfortable Abdomen: Positive bowel sounds, nontender, nondistended, no organomegaly Extremity: No edema, cyanosis, clubbing Skin: No rash, nodules, warm, dry Neuro: Difficult to assess, facial droop, moves all 4 extremities - Vital Signs Vital signs: Vital Signs - 12hr 03/15/17 03/15/17 03/15/17 22:00 23:00 23:11 Temperature Pulse Rate 84 89 79 Pulse Rate [ From Monitor] Pulse Rate [ Throughout] Respiratory 14 12 14 Rate Respiratory Rate [ Throughout] Blood Pressure 102/66 92/60 92/60 O2 Sat by Pulse 100 100 Oximetry O2 Sat by Pulse Oximetry [ Assessment] 03/15/17 03/15/17 03/16/17 23:33 23:52 00:00 Temperature 99.2 F Pulse Rate 84 86 Pulse Rate [ From Monitor] Pulse Rate [ Throughout] Respiratory 19 Rate Respiratory Rate [ Throughout] Blood Pressure 96/64 92/57 O2 Sat by Pulse 100 100 Oximetry O2 Sat by Pulse Oximetry [ Assessment] 03/16/17 03/16/17 03/16/17 01:00 02:00 03:00 Temperature Pulse Rate 88 86 88 Pulse Rate [ From Monitor] Pulse Rate [ Throughout] Respiratory 13 16 15 Rate Respiratory Rate [ Throughout] Blood Pressure 95/62 101/59 101/70 O2 Sat by Pulse 96 99 Oximetry O2 Sat by Pulse Oximetry [ Assessment] 03/16/17 03/16/17 03/16/17 03:12 03:36 04:00 Temperature 98.5 F Pulse Rate 88 88 Pulse Rate [ From Monitor] Pulse Rate [ Throughout] Respiratory 14 Rate Respiratory Rate [ Throughout] Blood Pressure 101/70 101/62 O2 Sat by Pulse 100 100 Oximetry O2 Sat by Pulse Oximetry [ Assessment] 03/16/17 03/16/17 03/16/17 05:00 06:00 07:00 Temperature Pulse Rate 89 92 H 93 H Pulse Rate [ From Monitor] Pulse Rate [ Throughout] Respiratory 12 15 16 Rate Respiratory Rate [ Throughout] Blood Pressure 91/56 99/64 94/61 O2 Sat by Pulse 100 99 Oximetry O2 Sat by Pulse Oximetry [ Assessment] 03/16/17 03/16/17 03/16/17 07:45 07:51 08:00 Temperature 99.6 F Pulse Rate 91 H 89 Pulse Rate [ 89 From Monitor] Pulse Rate [ Throughout] Respiratory 24 27 H Rate Respiratory Rate [ Throughout] Blood Pressure 95/59 96/57 O2 Sat by Pulse 98 98 Oximetry O2 Sat by Pulse 98 Oximetry [ Assessment] 03/16/17 03/16/17 08:40 08:46 Temperature Pulse Rate Pulse Rate [ From Monitor] Pulse Rate [ 88 89 Throughout] Respiratory Rate Respiratory 30 H 30 H Rate [ Throughout] Blood Pressure O2 Sat by Pulse Oximetry O2 Sat by Pulse Oximetry [ Assessment] - Lab 03/15/17 05:03 03/16/17 03:35 Most recent lab results ABG pH 7.450 pH Units (7.350-7.450) 12/05/16 Unknown ABG pCO2 29.6 mm Hg 12/05/16 Unknown ABG pO2 75.2 mm Hg (80.0-90.0) L 12/05/16 Unknown ABG HCO3 20.1 mmol/L (20.0-26.0) 12/05/16 Unknown ABG O2 Saturation 96.8 % (95.0-99.0) 12/05/16 Unknown Calcium 7.9 mg/dL (8.4-10.2) L 03/16/17 03:35 Phosphorus 2.20 mg/dL (2.5-4.5) L D 03/16/17 03:35 Magnesium 1.70 mg/dL (1.7-2.3) 03/16/17 03:35 Urine Creatinine 19.7 mg/dL (0.1-20.0) 11/12/16 10:18 Urine Sodium 36 mEq/L 09/16/16 19:19 Urine Total Protein 16 mg/dL (5-11.8) H 09/16/16 19:19
[2017-03-16] MEDS ORDERED: SODIUM BICARBONATE IV ONE (11:55)
[2017-03-16] MEDS ORDERED: ADRENALIN ONE (11:55)
[2017-03-16] MEDS ORDERED: D50W (25GM) Syringe IV ONE (11:55)
[2017-03-16] MEDS: CORDARONE 900 MG in D5W 482 ML IV SCH (12:21)
--- NOTE | 2017-03-16 12:48 | Progress Note ---
Assessment and Plan Assessment: 1) Recurrent SIRS: new septic shock ? - Likely due to recurrent Enterococcus bacteremia ? intrabdominal source ? PIV infected 2) History of Peritonitis: from gastric perforation from dislodged PEG with significant ascites -S/P exlap, repair of gastric perforation with wedge gastrectomy, abdominal washout, drain placement on 10/05 3) History of Candidemia: -Blood cultures positive for Silvia albicans on 09/23 and 09/25 -Blood cultures negative on 09/30 -PICC line changed on 10/03 -Source ? gastric perf (PEG placed on 09/20) +/- TPN +/- central lines -TTE 10/07 no vegetations -PICC exchanged on 10/03 -fully treated with micafungin for 14 days last day 10/13 4) History CA-UTI s/p gutierrez exchanged 5) Diarrhea - ? etiology ? antibiotic-induced, not better. 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 from GI bleed 13) Recent abdominal wall abscess at surgical site-treated 14 ) Recent Enterococcal bacteremia from PICC line infection. 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 -S/P debridement at bedside - new wound cx 01/24 +Proteus and MDR Pseudomonas (resistant to meropenem and cefepime/sensitive to ceftazidime) and wound VAC placement -CRP=24 --> 8 16) Presumed VAP: sputum + MDR Pseudomonas / Proteus / pleural effusion s/p thoracentesis 17) Resp failure - better 18) Perforated bowel: Ct showed presumed perf bowel with free air -repeat CT showed large 21x4.2 cm collection -s/p CT guided drainage -30 mL's of dark purulent fluid was aspirated 19) Enterococcal septicemia from IV cath. TTE no vegetations 18) PIV site infection s/p line removed on 03/09 tip + Enterococcus Plan: -f/u drainage cultures -still on levophed -continue cefepime and flagyl -day 6 -stop vancomycin for now total 14 days from perm cath removal until 03/16 poor prognosis Thank you for your consultation, will follow up with you. Pauline Carias MD Infectious Diseases Specialist [facility] ([facility]) M [phone] O [phone] Subjective Date of service: 03/16/17 Principal diagnosis: Acute resp failure on MVS; S/P Acute CVA; Acute Encephalopathy; JUANITA Interval history: Interval history: remains on the vent, tachy on monitor, on amiodarone gtt, fever resolved, on levophed at 2 mcg/min Microbiology: Blood cultures: 09/13 neg 8/ Silvia albicans 09/25 Silvia 09/29 neg 10/07 neg 11/05 neg 11/07 ngtd 11/22 E faecalis 1 of 4 bottles 11/25 neg 12/27 neg 01/09 ngtd 02/14 ngtd 02/27 Enterococcus durans 1 of 4 bottles 03/06 ngtd PIV tip 03/09 Enterococcus, GREENSKEEPER, Proteus Urine cultures: 09/10 neg 09/13 neg 8/ 10-100K mixed species 10/07 neg 11/05 VRE 11/07 mixed bacteria Respiratory cultures: 09/07 neg 09/13 neg 09/23 neg 11/07 MDR Pseudomonas 10 tracheal + VRE 01/09 Pseudomonas x 3 and Proteues Pleural effusion: ngtd Wound cultures: 10/17 abd wall wound purulence + Pseudomonas MDR 01/24 GNRs 03/15 drainage - pending Stool cultures: cath tip 11/07 + GREENSKEEPER Current Antimicrobials: cefepime 03/09 flagyl 03/09 vanco Previous Antimicrobials: Zosyn 10/07 Vancomycin PO 10/01 Metronidazole 09/25 Micafungin 09/27-10/13 Meropenem 10/10 Vanco 10/17 zosyn 10/21 Cefepime 11/10 vancomyin 11/07 fluconazole 10/19 cefepime 10/29levaquin 11/05 vanco 11/23 meropenem 01/08 ceftaz 01/30 Objective - Exam Narrative Exam: General appearance: alert non communicative, on the vent via trach in mild resp distress, no following commands Eyes: anicteric sclera, moist conjunctivae; PERRLA HENT: Atraumatic; oropharynx limited; Normal external ears. +NGT with greenish secretion Neck: +trach in place; supple, no thyromegaly or lymphadenopathy Lungs: brit coarse BS CV: tachy Abdomen: Soft, tender, +old PEG site no drainage. +iliostomy. Right sided Surgical site x 2 with ostomy bags. +drain with copious purulence Extremities: +peripheral edema Skin: sacral area wounds - per wound care STAGE 4 PRESSURE INJURY TO SACRAL MEASURES 7.5X6X2.5, WITH UNDERMINING FROM @9-1 OCLOCK-2.8CM-ULCER CLEANED WITH WOUND LOSS PREVENTION OPERATIONS MANAGER-ULCER NEW - Sacrum wound measuring 9x11cm. Necrotic tissue noted on the wound edges and in the wound bed Now with a wound VAC Psych: somnolent . Neuro: alert non verbal on the vent. Lines: PICC / gutierrez - Constitutional Vitals: Vital Signs Temp Pulse Resp BP Pulse Ox 98.1 F 104 H 18 99/59 94 03/16/17 12:00 03/16/17 10:39 03/16/17 10:00 03/16/17 10:39 03/16/17 10:39 Temperature -Last 24 Hours Temperature 98.1 F Temperature 99.6 F Temperature 98.5 F Temperature 99.2 F Temperature 99.2 F Temperature 98.6 F Temperature 98.6 F Temperature 98.6 F - Labs CBC & Chem 7: 03/15/17 05:03 03/16/17 03:35 Labs: Abnormal lab results 03/15/17 03/15/17 03/16/17 Range/Units 12:52 17:46 00:16 Potassium (3.6-5.0) mmol/L BUN (7-17) mg/dL Creatinine (0.7-1.2) mg/dL Glucose (65-100) mg/dL POC Glucose 141 H 170 H 120 H (70-105) Calcium (8.4-10.2) mg/dL Phosphorus (2.5-4.5) mg/dL 03/16/17 03/16/17 Range/Units 03:35 05:15 Potassium 3.5 L (3.6-5.0) mmol/L BUN 26 H (7-17) mg/dL Creatinine 1.3 H (0.7-1.2) mg/dL Glucose 129 H (65-100) mg/dL POC Glucose 140 H (70-105) Calcium 7.9 L (8.4-10.2) mg/dL Phosphorus 2.20 L D (2.5-4.5) mg/dL
--- NOTE | 2017-03-16 16:12 | Progress Note ---
Assessment and Plan Assessment and plan: 47-year-old female patient multiple medical problems, large CVA , hypoxic encephalopathy , status post cardiac arrest , vegetative state , atrial fibrillation , sepsis , aspiration pneumonia , end-stage renal disease on hemodialysis , multiple sacral and lower extremity decubiti requiring debridement , severe protein calorie malnutrition peritonitis / perforation, multiple surgeries, DO NOT RESUSCITATE status,prolonged hospital stay and poor prognosis, -- sepsis,recurrent enterococcal bacteremia, continue antibiotics per ID, PRINCE negative for vegetations --Perforated bowel/large fluid collection, s/p drain placement --Acute respiratory failure status post tracheostomy vent dependent --Hypotension; on Levophed --A. fib with rapid ventricular rate; continue amiodarone --Status post cardiac arrest/anoxic encephalopathy/status post tracheostomy --Persistent vegetative state/DO NOT RESUSCITATE status, family not ready for hospice --Peritonitis ; due to gastric perforation, status post exploratory laparotomy, but gastrostomy, abdominal washout and drain placement, on TPN --End-stage renal disease on hemodialysis --Large CVA; with midline shift, continue current management --Aspiration pneumonia; completed multiple courses of antibiotics, ID following --Severe protein calorie malnutrition; nutrition consult and supportive care --Multiple sacral and lower extremity decubitus ulcers; status post debridement , continue wound care --DO NOT RESUSCITATE status Poor prognosis, had many family meetings in the past, family of areas of patient 's poor prognosis Critical care time 32 minutes - The high probability of a clinically significant, sudden or life threatening deterioration of the [neurologic, CV] system(s) required my full and direct attention, intervention and personal management. The aggregate critical care time was [32] minutes. This time is in addition to time spent performing reported procedures but includes the following: [x] Data Review and interpretation [x] Patient assessment and monitoring of vital signs [x] Documentation [x] Medication orders and management Hospitalist Physical - Constitutional Vitals: Temp Pulse Resp BP Pulse Ox 98.1 F 92 H 16 106/62 99 03/16/17 12:00 03/16/17 14:00 03/16/17 14:00 03/16/17 14:00 03/16/17 14:00 General appearance: Present: no acute distress, cachectic, other (spontaneous opening of eyes, unresponsive) - EENT Eyes: Present: PERRL, EOM intact - Neck Neck: Present: supple, normal ROM - Respiratory Respiratory effort: normal Respiratory: bilateral: diminished, negative: rales, rhonchi - Cardiovascular Rhythm: regular Heart Sounds: Present: S1 & S2 - Extremities Extremities: abnormal (contracted) Extremity abnormal: edema - Abdominal General gastrointestinal: soft, non-tender, non-distended, normal bowel sounds - Integumentary Integumentary: Present: clear, warm Results - Labs CBC & Chem 7: 03/15/17 05:03 03/16/17 03:35 Labs: Laboratory Last Values WBC 15.2 K/mm3 (4.5-11.0) H 03/15/17 05:03 RBC 2.42 M/mm3 (3.65-5.03) L 03/15/17 05:03 Hgb 6.9 gm/dl (10.1-14.3) L 03/15/17 05:03 Hct 22.2 % (30.3-42.9) L 03/15/17 05:03 MCV 91 fl (79-97) 03/15/17 05:03 MCH 28 pg (28-32) 03/15/17 05:03 MCHC 31 % (30-34) 03/15/17 05:03 RDW 18.4 % (13.2-15.2) H 03/15/17 05:03 Plt Count 193 K/mm3 (140-440) 03/15/17 05:03 Lymph % (Auto) Rn Rehab 03/14/17 14:30 [place] % (Auto) Rn Rehab 03/14/17 14:30 Eos % (Auto) Rn Rehab 03/14/17 14:30 Baso % (Auto) Rn Rehab 03/14/17 14:30 Lymph # Rn Rehab 03/14/17 14:30 [place] # Rn Rehab 03/14/17 14:30 Eos # Rn Rehab 03/14/17 14:30 Baso # Rn Rehab 03/14/17 14:30 Add Manual Diff Complete 03/14/17 14:30 Total Counted 100 03/14/17 14:30 Seg Neutrophils % Rn Rehab 03/14/17 14:30 Seg Neuts % (Manual) 70.0 % (40.0-70.0) 03/14/17 14:30 Band Neutrophils % 0 % 03/14/17 14:30 Lymphocytes % (Manual) 13.0 % (13.4-35.0) L 03/14/17 14:30 Reactive Lymphs % (Man) 1.0 % 03/14/17 14:30 Monocytes % (Manual) 15.0 % (0.0-7.3) H 03/14/17 14:30 Eosinophils % (Manual) 1.0 % (0.0-4.3) 03/14/17 14:30 Basophils % (Manual) 0 % (0.0-1.8) 03/14/17 14:30 Metamyelocytes % 0 % 03/14/17 14:30 Myelocytes % 0 % 03/14/17 14:30 Promyelocytes % 0 % 03/14/17 14:30 Blast Cells % 0 % 03/14/17 14:30 Nucleated RBC % Not Reportable 03/14/17 14:30 Seg Neutrophils # Rn Rehab 03/14/17 14:30 Seg Neutrophils # Man 12.3 K/mm3 (1.8-7.7) H 03/14/17 14:30 Band Neutrophils # 0.0 K/mm3 03/14/17 14:30 Lymphocytes # (Manual) 2.3 K/mm3 (1.2-5.4) 03/14/17 14:30 Abs React Lymphs (Man) 0.2 K/mm3 03/14/17 14:30 Monocytes # (Manual) 2.6 K/mm3 (0.0-0.8) H 03/14/17 14:30 Eosinophils # (Manual) 0.2 K/mm3 (0.0-0.4) 03/14/17 14:30 Basophils # (Manual) 0.0 K/mm3 (0.0-0.1) 03/14/17 14:30 Metamyelocytes # 0.0 K/mm3 03/14/17 14:30 Myelocytes # 0.0 K/mm3 03/14/17 14:30 Promyelocytes # 0.0 K/mm3 03/14/17 14:30 Blast Cells # 0.0 K/mm3 03/14/17 14:30 Pathologist Review 09/13/16 04:00 WBC Morphology Not Reportable 03/14/17 14:30 Hypersegmented Neuts Not Reportable 03/14/17 14:30 Hyposegmented Neuts Not Reportable 03/14/17 14:30 Hypogranular Neuts Not Reportable 03/14/17 14:30 Smudge Cells Not Reportable 03/14/17 14:30 Toxic Granulation Not Reportable 03/14/17 14:30 Toxic Vacuolation Not Reportable 03/14/17 14:30 Dohle Bodies Not Reportable 03/14/17 14:30 Pelger-Huet Anomaly Not Reportable 03/14/17 14:30 Jasmina Rods Not Reportable 03/14/17 14:30 Platelet Estimate Consistent w auto 03/14/17 14:30 Clumped Platelets Not Reportable 03/14/17 14:30 Plt Clumps, EDTA Not Reportable 03/14/17 14:30 Large Platelets Not Reportable 03/14/17 14:30 Giant Platelets Not Reportable 03/14/17 14:30 Platelet Satelliting Not Reportable 03/14/17 14:30 Plt Morphology Comment Not Reportable 03/14/17 14:30 RBC Morphology Not Reportable 03/14/17 14:30 Dimorphic RBCs Not Reportable 03/14/17 14:30 Polychromasia Not Reportable 03/14/17 14:30 Hypochromasia 2+ 03/14/17 14:30 Poikilocytosis Not Reportable 03/14/17 14:30 Anisocytosis 1+ 03/14/17 14:30 Microcytosis Not Reportable 03/14/17 14:30 Macrocytosis Not Reportable 03/14/17 14:30 Spherocytes Not Reportable 03/14/17 14:30 Pappenheimer Bodies Not Reportable 03/14/17 14:30 Sickle Cells Not Reportable 03/14/17 14:30 Target Cells Not Reportable 03/14/17 14:30 Tear Drop Cells Not Reportable 03/14/17 14:30 Ovalocytes Not Reportable 03/14/17 14:30 Stomatocytes 2+ 03/14/17 14:30 Helmet Cells Not Reportable 03/14/17 14:30 [place] Bodies Not Reportable 03/14/17 14:30 Odell Rings Not Reportable 03/14/17 14:30 [place] Cells Not Reportable 03/14/17 14:30 Bite Cells Not Reportable 03/14/17 14:30 Crenated Cell Not Reportable 03/14/17 14:30 Elliptocytes Not Reportable 03/14/17 14:30 Acanthocytes (Spur) Not Reportable 03/14/17 14:30 Rouleaux Not Reportable 03/14/17 14:30 Hemoglobin C Crystals Not Reportable 03/14/17 14:30 Schistocytes Not Reportable 03/14/17 14:30 Malaria parasites Not Reportable 03/14/17 14:30 ESR > 140.0 mm/Hr (0-20) 09/08/16 11:48 Jun Bodies Not Reportable 03/14/17 14:30 Hem Pathologist Commnt No 03/14/17 14:30 PT 15.4 Sec. (12.2-14.9) H 01/13/17 15:50 INR 1.16 (0.87-1.13) H 01/13/17 15:50 APTT 33.0 Sec. (24.2-36.6) 10/09/16 03:45 Thrombin Time 16.8 Sec. (15.1-19.6) 09/03/16 00:10 Fibrinogen 750 mg/dl (211-480) H 09/08/16 11:48 Lupus Anticoagulant see below 09/12/16 09:59 LA PTT Baseline See scanned report 09/12/16 09:59 dRVVT Confirm Interp Positive (Negative) H 09/12/16 09:59 dRVVT Screen 50:50 See scanned report 09/12/16 09:59 dRVVT Mix Interpret See scanned report 09/12/16 09:59 Protein C Antigen 122 % (70-140) 09/08/16 15:35 Free Protein S 97 % normal (50-147) 09/08/16 15:35 Total Protein S 109 % (70-140) 09/08/16 15:35 Antithrombin III Ag 100 % (80-120) 09/08/16 15:35 Heparin Anti-Xa, Unfract Negative (Negative) 09/29/16 13:35 Factor V Activity 182 % (65-150) H 09/08/16 15:35 POC ABG pH 7.518 (7.35-7.45) H 03/03/17 20: ABG pH 7.450 pH Units (7.350-7.450) 12/05/16 Unknown POC ABG pCO2 28.8 (35-45) L 03/03/17 20:17 ABG pCO2 29.6 mm Hg 12/05/16 Unknown POC ABG pO2 61 (80-105) L 03/03/17 20: ABG pO2 75.2 mm Hg (80.0-90.0) L 12/05/16 Unknown POC ABG HCO3 23.4 03/03/17 20:17 ABG HCO3 20.1 mmol/L (20.0-26.0) 12/05/16 Unknown POC ABG Total CO2 24 03/03/17 20: POC ABG O2 Sat 94 03/03/17 20: ABG O2 Saturation 96.8 % (95.0-99.0) 12/05/16 Unknown ABG O2 Content 9.9 (0.0-44) 12/05/16 Unknown POC ABG Base Excess 0 03/03/17 20: ABG Base Excess -3.4 mmol/L (-2.0-3.0) L 12/05/16 Unknown ABG Hemoglobin 7.4 gm/dl (12.0-16.0) L 12/05/16 Unknown ABG Carboxyhemoglobin 1.8 % (0.0-5.0) 12/05/16 Unknown ABG Methemoglobin 0.6 % (0.0-1.5) 12/05/16 Unknown Oxyhemoglobin 94.5 % (95.0-99.0) L 12/05/16 Unknown FiO2 40 % 03/03/17 20:17 Sodium 137 mmol/L (137-145) 03/16/17 03:35 Potassium 3.5 mmol/L (3.6-5.0) L 03/16/17 03:35 Chloride 99.8 mmol/L (98-107) 03/16/17 03:35 Carbon Dioxide 26 mmol/L (22-30) 03/16/17 03:35 Anion Gap 15 mmol/L 03/16/17 03:35 BUN 26 mg/dL (7-17) H 03/16/17 03:35 Creatinine 1.3 mg/dL (0.7-1.2) H 03/16/17 03:35 Estimated GFR 53 ml/min 03/16/17 03:35 BUN/Creatinine Ratio 20 % 03/16/17 03:35 Glucose 129 mg/dL (65-100) H 03/16/17 03:35 POC Glucose 133 (70-105) H 03/16/17 12:26 Osmolality 351 Mosm/kg 09/16/16 11:47 Lactic Acid 2.30 mmol/L (0.7-2.0) H* 01/09/17 08:22 Calcium 7.9 mg/dL (8.4-10.2) L 03/16/17 03:35 Ionized Calcium 6.0 mg/dL (4.8-5.6) H 02/15/17 19:08 Phosphorus 2.20 mg/dL (2.5-4.5) L D 03/16/17 03:35 Magnesium 1.70 mg/dL (1.7-2.3) 03/16/17 03:35 Total Bilirubin 0.50 mg/dL (0.1-1.2) 03/06/17 03:52 Direct Bilirubin 0.2 mg/dL (0-0.2) 01/28/17 04:00 Indirect Bilirubin 0.3 mg/dL 01/28/17 04:00 AST 18 units/L (5-40) 03/06/17 03:52 ALT 18 units/L (7-56) 03/06/17 03:52 Alkaline Phosphatase 165 units/L (35-129) H 03/06/17 03:52 Ammonia 27.0 umol/L (25-60) 09/07/16 08:37 Lactate Dehydrogenase 170 units/L (91-180) 01/13/17 15:50 Total Creatine Kinase 121 units/L (30-135) 09/29/16 20:12 CK-MB (CK-2) < 1.0 ng/mL (0.0-4.0) 09/29/16 20:12 CK-MB (CK-2) Rel Index 0.8 (0-4) 09/29/16 20:12 Troponin T 0.204 ng/mL (0.00-0.029) H* 09/29/16 20:12 C-Reactive Protein 19.50 mg/dL (0.00-1.30) H 03/14/17 12:51 Total Protein 7.0 g/dL (6.3-8.2) 03/06/17 03:52 Albumin 1.5 g/dL (3.9-5) L 03/06/17 03:52 Albumin/Globulin Ratio 0.3 % 03/06/17 03:52 Prealbumin 0.110 g/L (0.200-0.400) L 12/29/16 05:15 Triglycerides 55 mg/dL (2-149) 02/06/17 04:45 Cholesterol 31 mg/dL (50-199) L 09/29/16 20:12 LDL Cholesterol Direct 4 mg/dL (50-130) L 09/29/16 20:12 HDL Cholesterol 3 mg/dL (40-59) L 09/29/16 20:12 Cholesterol/HDL Ratio 10.33 % 09/29/16 20:12 Angiotensin Convert Enz See scanned report 09/08/16 11:48 Renin 0.99 ng/mL/h (0.25-5.82) 10/07/16 10:56 Aldosterone <1 ng/dL () 10/07/16 10:56 Aldosterone/Renin Dir see below 10/07/16 10:56 Serotonin Release Assay See scanned report 09/29/16 13:35 25-OH Vitamin D Total 13 ng/mL (30-100) L 02/15/17 19:08 25-Hydroxy Vitamin D2 . 02/15/17 19:08 25-Hydroxy Vitamin D3 . 02/15/17 19:08 TSH 1.010 mlU/mL (0.270-4.200) 09/07/16 08:37 HCG, Qual Negative (Negative) 09/03/16 00:10 PTH Intact 10.88 pg/mL (15-65) L 02/15/17 19:08 Total Cortisol 18.2 mcg/dL () 02/02/17 20:09 Urine Color Yellow (Yellow) 11/05/16 13:09 Urine Turbidity Clear (Clear) 11/05/16 13:09 Urine pH 9.0 (5.0-7.0) H 11/05/16 13:09 Ur Specific [place] 1.011 (1.003-1.030) 11/05/16 13:09 Urine Protein 100 mg/dl mg/dL (Negative) 11/05/16 13:09 Urine Glucose (UA) Neg mg/dL (Negative) 11/05/16 13:09 Urine Ketones Neg mg/dL (Negative) 11/05/16 13:09 Urine Blood Neg (Negative) 11/05/16 13:09 Urine Nitrite Neg (Negative) 11/05/16 13:09 Urine Bilirubin Neg (Negative) 11/05/16 13:09 Urine Urobilinogen < 2.0 mg/dL (<2.0) 11/05/16 13:09 Ur Leukocyte Esterase Neg (Negative) 11/05/16 13:09 Urine WBC (Auto) 4.0 /HPF (0.0-6.0) 11/05/16 13:09 Urine RBC (Auto) 1.0 /HPF (0.0-6.0) 11/05/16 13:09 U Epithel Cells (Auto) 1.0 /HPF (0-13.0) 10/07/16 18:30 Urine Bacteria (Auto) 4+ /HPF (Negative) 11/05/16 13:09 Urine WBC Clumps 2+ /HPF 09/07/16 02:47 Hyaline Casts 4 /LPF 09/07/16 02:47 Urine Mucus Few /HPF 10/07/16 18:30 Urine Yeast (Budding) 3+ /HPF 10/07/16 18:30 Urine Eosinophils None seen (None Seen) 09/07/16 16:00 Urine Total Volume 950 11/12/16 10:18 Urine Creatinine 19.7 mg/dL (0.1-20.0) 11/12/16 10:18 Height (in) 65.0 inches 11/12/16 10:18 Weight (lb) 181.0 lbs 11/12/16 10:18 Creatinine Clearance 5 11/12/16 10:18 Urine Sodium 36 mEq/L 09/16/16 19:19 Urine Total Protein 16 mg/dL (5-11.8) H 09/16/16 19:19 Fluid Type Pleural 01/13/17 12:10 Fluid Color Yellow 01/13/17 12:10 Fluid Appearance Hazy 01/13/17 12:10 Fluid WBC 182 /mm3 01/13/17 12:10 Fluid RBC 41 /mm3 01/13/17 12:10 Fluid Seg Neutrophils 85.0 % 01/13/17 12:10 Fluid Lymphocytes 8.0 % 01/13/17 12:10 Fluid Reactive Lymphs 0 % 01/13/17 12:10 Fluid Monocytes 6.0 % 01/13/17 12:10 Fluid Eosinophils 1.0 % 01/13/17 12:10 Fluid Basophils 0 % 01/13/17 12:10 Fluid Total Protein 3.0 (15.0-45.0) L 01/13/17 12:10 Fluid LDH 1322 01/13/17 12:10 Fluid Comment Diff performed 01/13/17 12:10 Vancomycin Trough 2.3 ug/mL (5.0-20.0) L 09/21/16 13:00 Random Vancomycin 26.0 ug/mL (0-40.0) 03/13/17 05:39 Urine Opiates Screen Presumptive negative 09/03/16 15:11 Urine Methadone Screen Presumptive positive 09/03/16 15:11 Ur Barbiturates Screen Presumptive positive 09/03/16 15:11 Ur Phencyclidine Scrn Presumptive negative 09/03/16 15:11 Ur Amphetamines Screen Presumptive negative 09/03/16 15:11 U Benzodiazepines Scrn Presumptive negative 09/03/16 15:11 Urine Cocaine Screen Presumptive negative 09/03/16 15:11 U Marijuana (THC) Screen Presumptive positive 09/03/16 15:11 Drugs of Abuse Note Disclamer 09/03/16 15:11 Rheumatoid Factor 24 IU/ml (0-13) H 09/08/16 11:48 SAHIL Screen Negative (Negative) 09/07/16 09:20 Proteinase 3 (PR3) Ab <1.0 AI (<1.0) 09/07/16 09:20 Myeloperoxidase Ab <1.0 AI (<1.0) 09/07/16 09:20 Sjogren's Antibody <1.0 AI (<1.0) 09/08/16 15:35 Scl-70 Scleroderma Ab <1.0 AI (<1.0) 09/08/16 15:35 Centromere B Antibody <1.0 AI (<1.0) 09/08/16 12:02 Heparin-induced Plt Ab Negative (Negative) 09/29/16 13:35 UF Heparin High Dose 11 % Release 09/29/16 13:35 SUDHIR UFH Low Dose 0.1 6 % Release 09/29/16 13:35 SUDHIR UFH Low Dose 0.5 8 % Release 09/29/16 13:35 Cardiolipid IgG Ab <14 GPL (<=14) 09/12/16 09:59 Cardiolipid IgA Ab <11 APL (<=11) 09/12/16 09:59 Cardiolipid IgM Ab <12 MPL (<=12) 09/12/16 09:59 Complement C3 148 mg/dL (90-180) 09/07/16 09:20 Complement C4 58 mg/dL (16-47) H 09/07/16 09:20 RPR Nonreactive (Nonreactive) 09/08/16 11:48 Hepatitis A IgM Ab Non-reactive (NonReactive) 09/24/16 14:40 Hep Bs Antigen Non-reactive (Negative) 09/24/16 14:40 Hep B Core IgM Ab Non-reactive (NonReactive) 09/24/16 14:40 Hepatitis C Antibody Non-reactive (NonReactive) 09/24/16 14:40 HIV 1&2 Antibody Rapid Non react (Non React) 09/08/16 11:48 HIV P24 Antigen Non react (Non React) 09/08/16 11:48 Miscellaneous Test Flexitest 1 H 01/09/17 18:45 Blood Type A POSITIVE 03/14/17 16:55 Antibody Screen Negative 03/14/17 16:55 DELORIS Antibody Screen Negative 11/24/16 11:20 Crossmatch See Detail 03/14/17 16:55
[2017-03-16] MEDS: LEVOPHED DRIP 4 MG/NS 250 ML 4 MG/250 ML BAG IV SCH (18:28)
[2017-03-16] MEDS ORDERED: TPN ADULT IV SCH (20:00)
[2017-03-17] MEDS: LOPRESSOR IV SCH ×3 (02:15→17:43)
[2017-03-17] MEDS: FLAGYL 500 MG/100 ML 500 MG/100 ML BAG IV SCH ×3 (04:45→21:33)
[2017-03-17] MEDS: REGLAN IV SCH ×2 (04:50→13:27)
[2017-03-17 06:27] LABS: Calcium 8.3 mg/dL (8.4-10.2)
[2017-03-17] MEDS: DUONEB *Not for PRN Use IH SCH ×3 (09:50→21:00)
[2017-03-17] MEDS: HEPARIN SUB-Q SCH ×2 (10:43→21:34)
[2017-03-17] MEDS: PEPCID IV SCH (10:43)
[2017-03-17] MEDS: MAXIPIME 1 GM in NACL 0.9% 20 ML IV SCH (13:27)
--- NOTE | 2017-03-17 13:30 | Progress Note ---
Assessment and Plan Assessment: 1) Recurrent SIRS: new septic shock - resolved - Likely due to intra-abdominal abscess 2) History of Peritonitis: from gastric perforation from dislodged PEG with significant ascites -S/P exlap, repair of gastric perforation with wedge gastrectomy, abdominal washout, drain placement on 10/05 3) History of Candidemia: -Blood cultures positive for Silvia albicans on 09/23 and 09/25 -Blood cultures negative on 09/30 -PICC line changed on 10/03 -Source ? gastric perf (PEG placed on 09/20) +/- TPN +/- central lines -TTE 10/07 no vegetations -PICC exchanged on 10/03 -fully treated with micafungin for 14 days last day 10/13 4) History CA-UTI s/p gutierrez exchanged 5) Diarrhea - ? etiology ? antibiotic-induced, not better. 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 from GI bleed 13) Recent abdominal wall abscess at surgical site-treated 14 ) Recent Enterococcal bacteremia from PICC line infection. 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 -S/P debridement at bedside - new wound cx 01/24 +Proteus and MDR Pseudomonas (resistant to meropenem and cefepime/sensitive to ceftazidime) and wound VAC placement -CRP=24 --> 8 16) Presumed VAP: sputum + MDR Pseudomonas / Proteus / pleural effusion s/p thoracentesis 17) Resp failure - better 18) Perforated bowel: Ct showed presumed perf bowel with free air -repeat CT showed large 21x4.2 cm collection -s/p CT guided drainage -30 mL's of dark purulent fluid was aspirated 19) Enterococcal septicemia from IV cath. TTE no vegetations 18) PIV site infection s/p line removed on 03/09 tip + Enterococcus Plan: -f/u drainage cultures -continue cefepime and flagyl -day 7 I will be covering the weekend. patient will be seen on Monday poor prognosis Thank you for your consultation, will follow up with you. Pauline Carias MD Infectious Diseases Specialist [facility] ([facility]) M [phone] O [phone] Subjective Date of service: 03/17/17 Principal diagnosis: Acute resp failure on MVS; S/P Acute CVA; Acute Encephalopathy; JUANITA Interval history: Interval history: remains on the vent, tachy on monitor, on amiodarone gtt, fever resolved, off levophed Microbiology: Blood cultures: 09/13 neg 09/23 Silvia albicans 09/25 Silvia 09/29 neg 10/07 neg 11/05 neg 11/07 ngtd 11/22 E faecalis 1 of 4 bottles 11/25 neg 12/27 neg 01/09 ngtd 02/14 ngtd 02/27 Enterococcus durans 1 of 4 bottles 03/06 ngtd PIV tip 03/09 Enterococcus, FINISHED [employer], Proteus Urine cultures: 09/10 neg 09/13 neg 8/ 10-100K mixed species 10/07 neg 11/05 VRE 11/07 mixed bacteria Respiratory cultures: 09/07 neg 09/13 neg 09/23 neg 11/07 MDR Pseudomonas 10 tracheal + VRE 01/09 Pseudomonas x 3 and Proteues Pleural effusion: ngtd Wound cultures: 10/17 abd wall wound purulence + Pseudomonas MDR 01/24 GNRs 03/15 drainage - GNB x 2 and Enterococcus Stool cultures: cath tip 11/07 + FINISHED [employer] Current Antimicrobials: cefepime 03/09 flagyl 03/09 vanco Previous Antimicrobials: Zosyn 10/07 Vancomycin PO 10/01 Metronidazole 09/25 Micafungin 09/27-10/13 Meropenem 10/10 Vanco 10/17 zosyn 10/21 Cefepime 11/10 vancomyin 11/07 fluconazole 10/19 cefepime 10/29levaquin 11/05 vanco 11/23 meropenem 01/08 ceftaz 01/30 Objective - Exam Narrative Exam: General appearance: alert non communicative, on the vent via trach in mild resp distress, no following commands Eyes: anicteric sclera, moist conjunctivae; PERRLA HENT: Atraumatic; oropharynx limited; Normal external ears. +NGT with greenish secretion Neck: +trach in place; supple, no thyromegaly or lymphadenopathy Lungs: brit coarse BS CV: tachy Abdomen: Soft, tender, +old PEG site no drainage. +iliostomy. Right sided Surgical site x 2 with ostomy bags. +drain with copious purulence Extremities: +peripheral edema Skin: sacral area wounds - per wound care STAGE 4 PRESSURE INJURY TO SACRAL MEASURES 7.5X6X2.5, WITH UNDERMINING FROM @9-1 OCLOCK-2.8CM-ULCER CLEANED WITH WOUND TEMPLATE INSPECTOR-ULCER NEW - Sacrum wound measuring 9x11cm. Necrotic tissue noted on the wound edges and in the wound bed Now with a wound VAC Psych: somnolent . Neuro: alert non verbal on the vent. Lines: PICC / gutierrez - Constitutional Vitals: Vital Signs Temp Pulse Resp BP Pulse Ox 97.2 F L 99 H 31 H 112/76 100 03/17/17 08:00 03/17/17 11:00 03/17/17 11:00 03/17/17 11:00 03/17/17 11:00 Temperature -Last 24 Hours Temperature 97.2 F Temperature 98.4 F Temperature 98.9 F Temperature 98.6 F Temperature 97.2 F - Labs CBC & Chem 7: 03/15/17 05:03 03/17/17 04:00 Labs: Abnormal lab results 03/16/17 03/17/17 03/17/17 Range/Units 18:16 00:00 04:00 Sodium 134 L (137-145) mmol/L Chloride 95.1 L (98-107) mmol/L BUN 37 H (7-17) mg/dL Creatinine 1.8 H (0.7-1.2) mg/dL Glucose 115 H (65-100) mg/dL POC Glucose 107 H 124 H (70-105) Calcium 8.3 L (8.4-10.2) mg/dL Phosphorus 5.50 H D (2.5-4.5) mg/dL 03/17/17 Range/Units 05:57 Sodium (137-145) mmol/L Chloride (98-107) mmol/L BUN (7-17) mg/dL Creatinine (0.7-1.2) mg/dL Glucose (65-100) mg/dL POC Glucose 141 H (70-105) Calcium (8.4-10.2) mg/dL Phosphorus (2.5-4.5) mg/dL
[2017-03-17] MEDS: HumuLIN R SUB-Q SCH ×3 (13:32→19:03)
--- NOTE | 2017-03-17 14:05 | Progress Note ---
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 UF as tolerated. Patient's serum creatinine is noted to be low - due to wasting of muscle mass. Needs to be maintained on dialysis at this time. * hypercalcemia work up - likely due to immobilization * Abx management per ID * Adjust Ca bath with dialysis prn * Transfuse pRBC per primary team. Epogen TIW prn * Vent management per pulm/CCM * Pressors prn for MAP>65 * Dose medications for renal function Subjective Date of service: 03/17/17 Principal diagnosis: Acute resp failure on MVS; S/P Acute CVA; Acute Encephalopathy; JUANITA Interval history: new events from last pm noted Objective - Exam Narrative Exam: Gen. appearance: Patient lying in bed, no apparent distress, 4. restraints HEENT: Normocephalic, atraumatic, pupils equally round and reactive to light, extraocular movement intact, and no sclericterus,. No JVD or thyromegaly or nodule,neck supple, no carotid bruit ,mucous membranes moist, unable to examine oral cavity Heart: S1, S2, regular rate and rhythm Lungs: Clear to auscultation bilaterally, breathing comfortable Abdomen: Positive bowel sounds, nontender, nondistended, no organomegaly Extremity: No edema, cyanosis, clubbing Skin: No rash, nodules, warm, dry Neuro: Difficult to assess, facial droop, moves all 4 extremities - Vital Signs Vital signs: Vital Signs - 12hr 03/17/17 03/17/17 03/17/17 02:15 02:35 03:00 Temperature Pulse Rate 100 H 103 H 103 H Pulse Rate [ 100 H From Monitor] Respiratory 23 21 Rate Blood Pressure 111/74 116/75 O2 Sat by Pulse 100 100 Oximetry 03/17/17 03/17/17 03/17/17 03:15 04:00 04:45 Temperature 98.4 F Pulse Rate 101 H 103 H 103 H Pulse Rate [ 100 H From Monitor] Respiratory 15 23 Rate Blood Pressure 116/75 102/65 O2 Sat by Pulse 100 100 100 Oximetry 03/17/17 03/17/17 03/17/17 05:00 06:00 06:51 Temperature Pulse Rate 96 H 103 H Pulse Rate [ From Monitor] Respiratory 16 24 23 Rate Blood Pressure 108/65 112/73 O2 Sat by Pulse 100 Oximetry 03/17/17 03/17/17 03/17/17 07:00 08:00 09:00 Temperature 97.2 F L Pulse Rate 98 H 107 H 104 H Pulse Rate [ From Monitor] Respiratory 16 13 16 Rate Blood Pressure 104/67 105/69 118/82 O2 Sat by Pulse 100 100 100 Oximetry 03/17/17 03/17/17 03/17/17 10:00 10:16 11:00 Temperature Pulse Rate 100 H 101 H 99 H Pulse Rate [ From Monitor] Respiratory 15 29 H 31 H Rate Blood Pressure 117/71 125/85 112/76 O2 Sat by Pulse 99 100 Oximetry 03/17/17 13:58 Temperature Pulse Rate 100 H Pulse Rate [ From Monitor] Respiratory 39 H Rate Blood Pressure 125/83 O2 Sat by Pulse 100 Oximetry - Lab 03/15/17 05:03 03/17/17 04:00 Most recent lab results ABG pH 7.450 pH Units (7.350-7.450) 12/05/16 Unknown ABG pCO2 29.6 mm Hg 12/05/16 Unknown ABG pO2 75.2 mm Hg (80.0-90.0) L 12/05/16 Unknown ABG HCO3 20.1 mmol/L (20.0-26.0) 12/05/16 Unknown ABG O2 Saturation 96.8 % (95.0-99.0) 12/05/16 Unknown Calcium 8.3 mg/dL (8.4-10.2) L 03/17/17 04:00 Phosphorus 5.50 mg/dL (2.5-4.5) H D 03/17/17 04:00 Magnesium 1.90 mg/dL (1.7-2.3) 03/17/17 04:00 Urine Creatinine 19.7 mg/dL (0.1-20.0) 11/12/16 10:18 Urine Sodium 36 mEq/L 09/16/16 19:19 Urine Total Protein 16 mg/dL (5-11.8) H 09/16/16 19:19
[2017-03-17] MEDS ORDERED: NACL 0.9% 1000 ML 2,000 ML ONE (14:12)
[2017-03-17] MEDS: CORDARONE 900 MG in D5W 482 ML IV SCH (17:42)
[2017-03-17] MEDS: DURAGESIC TD SCH (17:43)
[2017-03-17] MEDS: HEPARIN IV PRN (17:54)
--- NOTE | 2017-03-17 19:05 | Progress Note ---
Assessment and Plan Assessment and plan: 47-year-old female patient multiple medical problems, large CVA , hypoxic encephalopathy , status post cardiac arrest , vegetative state , atrial fibrillation , sepsis , aspiration pneumonia , end-stage renal disease on hemodialysis , multiple sacral and lower extremity decubiti requiring debridement , severe protein calorie malnutrition peritonitis / perforation, multiple surgeries, DO NOT RESUSCITATE status,prolonged hospital stay and poor prognosis, -- sepsis,recurrent enterococcal bacteremia, continue cefepime and metronidazole per ID, PRINCE negative for vegetations --Perforated bowel/large fluid collection, s/p drain placement --Acute respiratory failure status post tracheostomy vent dependent --Hypotension; now blood pressures are reasonable level, off Levophed --A. fib with rapid ventricular rate; continue amiodarone --Status post cardiac arrest/anoxic encephalopathy/status post tracheostomy --Persistent vegetative state/DO NOT RESUSCITATE status, family not ready for hospice --Peritonitis ; due to gastric perforation, status post exploratory laparotomy, but gastrostomy, abdominal washout and drain placement, on TPN --End-stage renal disease on hemodialysis --Large CVA; with midline shift, continue current management --Aspiration pneumonia; completed multiple courses of antibiotics, ID following --Severe protein calorie malnutrition; nutrition consult and supportive care --Multiple sacral and lower extremity decubitus ulcers; status post debridement , continue wound care --DO NOT RESUSCITATE status Poor prognosis, had many family meetings in the past, family of areas of patient 's poor prognosis Critical care time 31 minutes - The high probability of a clinically significant, sudden or life threatening deterioration of the [neurologic, CV] system(s) required my full and direct attention, intervention and personal management. The aggregate critical care time was [31] minutes. This time is in addition to time spent performing reported procedures but includes the following: [x] Data Review and interpretation [x] Patient assessment and monitoring of vital signs [x] Documentation [x] Medication orders and management History Interval history: Patient seen and examined medical records reviewed Tracheostomy on vent Chronically ill looking, unresponsive Vital signs reviewed Hospitalist Physical - Constitutional Vitals: Temp Pulse Resp BP Pulse Ox 97.6 F 110 H 35 H 117/75 100 03/17/17 18:00 03/17/17 18:00 03/17/17 18:00 03/17/17 18:00 03/17/17 18:00 General appearance: Present: no acute distress, cachectic, other (spontaneous opening of eyes, unresponsive) - EENT Eyes: Present: PERRL, EOM intact - Neck Neck: Present: supple, normal ROM - Respiratory Respiratory effort: normal Respiratory: bilateral: diminished, rhonchi, negative: rales, wheezing - Cardiovascular Rhythm: irregularly irregular (tachycardia) Heart Sounds: Present: S1 & S2 - Extremities Extremity abnormal: edema, other ( contracted) - Abdominal General gastrointestinal: soft, non-tender, non-distended, normal bowel sounds - Integumentary Integumentary: Present: clear, warm - Psychiatric Psychiatric: other (noncommunicative) - Neurologic Neurologic: other (noncommunicative) Results - Labs CBC & Chem 7: 03/15/17 05:03 03/17/17 04:00 Labs: Laboratory Last Values WBC 15.2 K/mm3 (4.5-11.0) H 03/15/17 05:03 RBC 2.42 M/mm3 (3.65-5.03) L 03/15/17 05:03 Hgb 6.9 gm/dl (10.1-14.3) L 03/15/17 05:03 Hct 22.2 % (30.3-42.9) L 03/15/17 05:03 MCV 91 fl (79-97) 03/15/17 05:03 MCH 28 pg (28-32) 03/15/17 05:03 MCHC 31 % (30-34) 03/15/17 05:03 RDW 18.4 % (13.2-15.2) H 03/15/17 05:03 Plt Count 193 K/mm3 (140-440) 03/15/17 05:03 Lymph % (Auto) Brick Carrier 03/14/17 14:30 Stewart % (Auto) Brick Carrier 03/14/17 14:30 Eos % (Auto) Brick Carrier 03/14/17 14:30 Baso % (Auto) Brick Carrier 03/14/17 14:30 Lymph # Brick Carrier 03/14/17 14:30 Stewart # Brick Carrier 03/14/17 14:30 Eos # Brick Carrier 03/14/17 14:30 Baso # Brick Carrier 03/14/17 14:30 Add Manual Diff Complete 03/14/17 14:30 Total Counted 100 03/14/17 14:30 Seg Neutrophils % Brick Carrier 03/14/17 14:30 Seg Neuts % (Manual) 70.0 % (40.0-70.0) 03/14/17 14:30 Band Neutrophils % 0 % 03/14/17 14:30 Lymphocytes % (Manual) 13.0 % (13.4-35.0) L 03/14/17 14:30 Reactive Lymphs % (Man) 1.0 % 03/14/17 14:30 Monocytes % (Manual) 15.0 % (0.0-7.3) H 03/14/17 14:30 Eosinophils % (Manual) 1.0 % (0.0-4.3) 03/14/17 14:30 Basophils % (Manual) 0 % (0.0-1.8) 03/14/17 14:30 Metamyelocytes % 0 % 03/14/17 14:30 Myelocytes % 0 % 03/14/17 14:30 Promyelocytes % 0 % 03/14/17 14:30 Blast Cells % 0 % 03/14/17 14:30 Nucleated RBC % Not Reportable 03/14/17 14:30 Seg Neutrophils # Brick Carrier 03/14/17 14:30 Seg Neutrophils # Man 12.3 K/mm3 (1.8-7.7) H 03/14/17 14:30 Band Neutrophils # 0.0 K/mm3 03/14/17 14:30 Lymphocytes # (Manual) 2.3 K/mm3 (1.2-5.4) 03/14/17 14:30 Abs React Lymphs (Man) 0.2 K/mm3 03/14/17 14:30 Monocytes # (Manual) 2.6 K/mm3 (0.0-0.8) H 03/14/17 14:30 Eosinophils # (Manual) 0.2 K/mm3 (0.0-0.4) 03/14/17 14:30 Basophils # (Manual) 0.0 K/mm3 (0.0-0.1) 03/14/17 14:30 Metamyelocytes # 0.0 K/mm3 03/14/17 14:30 Myelocytes # 0.0 K/mm3 03/14/17 14:30 Promyelocytes # 0.0 K/mm3 03/14/17 14:30 Blast Cells # 0.0 K/mm3 03/14/17 14:30 Pathologist Review 09/13/16 04:00 WBC Morphology Not Reportable 03/14/17 14:30 Hypersegmented Neuts Not Reportable 03/14/17 14:30 Hyposegmented Neuts Not Reportable 03/14/17 14:30 Hypogranular Neuts Not Reportable 03/14/17 14:30 Smudge Cells Not Reportable 03/14/17 14:30 Toxic Granulation Not Reportable 03/14/17 14:30 Toxic Vacuolation Not Reportable 03/14/17 14:30 Dohle Bodies Not Reportable 03/14/17 14:30 Pelger-Huet Anomaly Not Reportable 03/14/17 14:30 Jasmina Rods Not Reportable 03/14/17 14:30 Platelet Estimate Consistent w auto 03/14/17 14:30 Clumped Platelets Not Reportable 03/14/17 14:30 Plt Clumps, EDTA Not Reportable 03/14/17 14:30 Large Platelets Not Reportable 03/14/17 14:30 Giant Platelets Not Reportable 03/14/17 14:30 Platelet Satelliting Not Reportable 03/14/17 14:30 Plt Morphology Comment Not Reportable 03/14/17 14:30 RBC Morphology Not Reportable 03/14/17 14:30 Dimorphic RBCs Not Reportable 03/14/17 14:30 Polychromasia Not Reportable 03/14/17 14:30 Hypochromasia 2+ 03/14/17 14:30 Poikilocytosis Not Reportable 03/14/17 14:30 Anisocytosis 1+ 03/14/17 14:30 Microcytosis Not Reportable 03/14/17 14:30 Macrocytosis Not Reportable 03/14/17 14:30 Spherocytes Not Reportable 03/14/17 14:30 Pappenheimer Bodies Not Reportable 03/14/17 14:30 Sickle Cells Not Reportable 03/14/17 14:30 Target Cells Not Reportable 03/14/17 14:30 Tear Drop Cells Not Reportable 03/14/17 14:30 Ovalocytes Not Reportable 03/14/17 14:30 Stomatocytes 2+ 03/14/17 14:30 Helmet Cells Not Reportable 03/14/17 14:30 Monet-[place] Bodies Not Reportable 03/14/17 14:30 [place] Rings Not Reportable 03/14/17 14:30 [place] Cells Not Reportable 03/14/17 14:30 Bite Cells Not Reportable 03/14/17 14:30 Crenated Cell Not Reportable 03/14/17 14:30 Elliptocytes Not Reportable 03/14/17 14:30 Acanthocytes (Spur) Not Reportable 03/14/17 14:30 Rouleaux Not Reportable 03/14/17 14:30 Hemoglobin C Crystals Not Reportable 03/14/17 14:30 Schistocytes Not Reportable 03/14/17 14:30 Malaria parasites Not Reportable 03/14/17 14:30 ESR > 140.0 mm/Hr (0-20) 09/08/16 11:48 Jun Bodies Not Reportable 03/14/17 14:30 Hem Pathologist Commnt No 03/14/17 14:30 PT 15.4 Sec. (12.2-14.9) H 01/13/17 15:50 INR 1.16 (0.87-1.13) H 01/13/17 15:50 APTT 33.0 Sec. (24.2-36.6) 10/09/16 03:45 Thrombin Time 16.8 Sec. (15.1-19.6) 09/03/16 00:10 Fibrinogen 750 mg/dl (211-480) H 09/08/16 11:48 Lupus Anticoagulant see below 09/12/16 09:59 LA PTT Baseline See scanned report 09/12/16 09:59 dRVVT Confirm Interp Positive (Negative) H 09/12/16 09:59 dRVVT Screen 50:50 See scanned report 09/12/16 09:59 dRVVT Mix Interpret See scanned report 09/12/16 09:59 Protein C Antigen 122 % (70-140) 09/08/16 15:35 Free Protein S 97 % normal (50-147) 09/08/16 15:35 Total Protein S 109 % (70-140) 09/08/16 15:35 Antithrombin III Ag 100 % (80-120) 09/08/16 15:35 Heparin Anti-Xa, Unfract Negative (Negative) 09/29/16 13:35 Factor V Activity 182 % (65-150) H 09/08/16 15:35 POC ABG pH 7.518 (7.35-7.45) H 03/03/17 20: ABG pH 7.450 pH Units (7.350-7.450) 12/05/16 Unknown POC ABG pCO2 28.8 (35-45) L 03/03/17 20: ABG pCO2 29.6 mm Hg 12/05/16 Unknown POC ABG pO2 61 (80-105) L 03/03/17: ABG pO2 75.2 mm Hg (80.0-90.0) L 12/05/16 Unknown POC ABG HCO3 23.4 03/03/17 20: ABG HCO3 20.1 mmol/L (20.0-26.0) 12/05/16 Unknown POC ABG Total CO2 24 03/03/17 20: POC ABG O2 Sat 94 03/03/17 20: ABG O2 Saturation 96.8 % (95.0-99.0) 12/05/16 Unknown ABG O2 Content 9.9 (0.0-44) 12/05/16 Unknown POC ABG Base Excess 0 03/03/17 20: ABG Base Excess -3.4 mmol/L (-2.0-3.0) L 12/05/16 Unknown ABG Hemoglobin 7.4 gm/dl (12.0-16.0) L 12/05/16 Unknown ABG Carboxyhemoglobin 1.8 % (0.0-5.0) 12/05/16 Unknown ABG Methemoglobin 0.6 % (0.0-1.5) 12/05/16 Unknown Oxyhemoglobin 94.5 % (95.0-99.0) L 12/05/16 Unknown FiO2 40 % 03/03/17 20: Sodium 134 mmol/L (137-145) L 03/17/17 04:00 Potassium 4.4 mmol/L (3.6-5.0) D 03/17/17 04:00 Chloride 95.1 mmol/L (98-107) L 03/17/17 04:00 Carbon Dioxide 24 mmol/L (22-30) 03/17/17 04:00 Anion Gap 19 mmol/L 03/17/17 04:00 BUN 37 mg/dL (7-17) H 03/17/17 04:00 Creatinine 1.8 mg/dL (0.7-1.2) H 03/17/17 04:00 Estimated GFR 37 ml/min 03/17/17 04:00 BUN/Creatinine Ratio 21 % 03/17/17 04:00 Glucose 115 mg/dL (65-100) H 03/17/17 04:00 POC Glucose 141 (70-105) H 03/17/17 05:57 Osmolality 351 Mosm/kg 09/16/16 11:47 Lactic Acid 2.30 mmol/L (0.7-2.0) H* 01/09/17 08:22 Calcium 8.3 mg/dL (8.4-10.2) L 03/17/17 04:00 Ionized Calcium 6.0 mg/dL (4.8-5.6) H 02/15/17 19:08 Phosphorus 5.50 mg/dL (2.5-4.5) H D 03/17/17 04:00 Magnesium 1.90 mg/dL (1.7-2.3) 03/17/17 04:00 Total Bilirubin 0.50 mg/dL (0.1-1.2) 03/06/17 03:52 Direct Bilirubin 0.2 mg/dL (0-0.2) 01/28/17 04:00 Indirect Bilirubin 0.3 mg/dL 01/28/17 04:00 AST 18 units/L (5-40) 03/06/17 03:52 ALT 18 units/L (7-56) 03/06/17 03:52 Alkaline Phosphatase 165 units/L (35-129) H 03/06/17 03:52 Ammonia 27.0 umol/L (25-60) 09/07/16 08:37 Lactate Dehydrogenase 170 units/L (91-180) 01/13/17 15:50 Total Creatine Kinase 121 units/L (30-135) 09/29/16 20:12 CK-MB (CK-2) < 1.0 ng/mL (0.0-4.0) 09/29/16 20:12 CK-MB (CK-2) Rel Index 0.8 (0-4) 09/29/16 20:12 Troponin T 0.204 ng/mL (0.00-0.029) H* 09/29/16 20:12 C-Reactive Protein 19.50 mg/dL (0.00-1.30) H 03/14/17 12:51 Total Protein 7.0 g/dL (6.3-8.2) 03/06/17 03:52 Albumin 1.5 g/dL (3.9-5) L 03/06/17 03:52 Albumin/Globulin Ratio 0.3 % 03/06/17 03:52 Prealbumin 0.110 g/L (0.200-0.400) L 12/29/16 05:15 Triglycerides 55 mg/dL (2-149) 02/06/17 04:45 Cholesterol 31 mg/dL (50-199) L 09/29/16 20:12 LDL Cholesterol Direct 4 mg/dL (50-130) L 09/29/16 20:12 HDL Cholesterol 3 mg/dL (40-59) L 09/29/16 20:12 Cholesterol/HDL Ratio 10.33 % 09/29/16 20:12 Angiotensin Convert Enz See scanned report 09/08/16 11:48 Renin 0.99 ng/mL/h (0.25-5.82) 10/07/16 10:56 Aldosterone <1 ng/dL () 10/07/16 10:56 Aldosterone/Renin Dir see below 10/07/16 10:56 Serotonin Release Assay See scanned report 09/29/16 13:35 25-OH Vitamin D Total 13 ng/mL (30-100) L 02/15/17 19:08 25-Hydroxy Vitamin D2 . 02/15/17 19:08 25-Hydroxy Vitamin D3 . 02/15/17 19:08 TSH 1.010 mlU/mL (0.270-4.200) 09/07/16 08:37 HCG, Qual Negative (Negative) 09/03/16 00:10 PTH Intact 10.88 pg/mL (15-65) L 02/15/17 19:08 Total Cortisol 18.2 mcg/dL () 02/02/17 20:09 Urine Color Yellow (Yellow) 11/05/16 13:09 Urine Turbidity Clear (Clear) 11/05/16 13:09 Urine pH 9.0 (5.0-7.0) H 11/05/16 13:09 Ur Specific [place] 1.011 (1.003-1.030) 11/05/16 13:09 Urine Protein 100 mg/dl mg/dL (Negative) 11/05/16 13:09 Urine Glucose (UA) Neg mg/dL (Negative) 11/05/16 13:09 Urine Ketones Neg mg/dL (Negative) 11/05/16 13:09 Urine Blood Neg (Negative) 11/05/16 13:09 Urine Nitrite Neg (Negative) 11/05/16 13:09 Urine Bilirubin Neg (Negative) 11/05/16 13:09 Urine Urobilinogen < 2.0 mg/dL (<2.0) 11/05/16 13:09 Ur Leukocyte Esterase Neg (Negative) 11/05/16 13:09 Urine WBC (Auto) 4.0 /HPF (0.0-6.0) 11/05/16 13:09 Urine RBC (Auto) 1.0 /HPF (0.0-6.0) 11/05/16 13:09 U Epithel Cells (Auto) 1.0 /HPF (0-13.0) 10/07/16 18:30 Urine Bacteria (Auto) 4+ /HPF (Negative) 11/05/16 13:09 Urine WBC Clumps 2+ /HPF 09/07/16 02:47 Hyaline Casts 4 /LPF 09/07/16 02:47 Urine Mucus Few /HPF 10/07/16 18:30 Urine Yeast (Budding) 3+ /HPF 10/07/16 18:30 Urine Eosinophils None seen (None Seen) 09/07/16 16:00 Urine Total Volume 950 11/12/16 10:18 Urine Creatinine 19.7 mg/dL (0.1-20.0) 11/12/16 10:18 Height (in) 65.0 inches 11/12/16 10:18 Weight (lb) 181.0 lbs 11/12/16 10:18 Creatinine Clearance 5 11/12/16 10:18 Urine Sodium 36 mEq/L 09/16/16 19:19 Urine Total Protein 16 mg/dL (5-11.8) H 09/16/16 19:19 Fluid Type Pleural 01/13/17 12:10 Fluid Color Yellow 01/13/17 12:10 Fluid Appearance Hazy 01/13/17 12:10 Fluid WBC 182 /mm3 01/13/17 12:10 Fluid RBC 41 /mm3 01/13/17 12:10 Fluid Seg Neutrophils 85.0 % 01/13/17 12:10 Fluid Lymphocytes 8.0 % 01/13/17 12:10 Fluid Reactive Lymphs 0 % 01/13/17 12:10 Fluid Monocytes 6.0 % 01/13/17 12:10 Fluid Eosinophils 1.0 % 01/13/17 12:10 Fluid Basophils 0 % 01/13/17 12:10 Fluid Total Protein 3.0 (15.0-45.0) L 01/13/17 12:10 Fluid LDH 1322 01/13/17 12:10 Fluid Comment Diff performed 01/13/17 12:10 Vancomycin Trough 2.3 ug/mL (5.0-20.0) L 09/21/16 13:00 Random Vancomycin 26.0 ug/mL (0-40.0) 03/13/17 05:39 Urine Opiates Screen Presumptive negative 09/03/16 15:11 Urine Methadone Screen Presumptive positive 09/03/16 15:11 Ur Barbiturates Screen Presumptive positive 09/03/16 15:11 Ur Phencyclidine Scrn Presumptive negative 09/03/16 15:11 Ur Amphetamines Screen Presumptive negative 09/03/16 15:11 U Benzodiazepines Scrn Presumptive negative 09/03/16 15:11 Urine Cocaine Screen Presumptive negative 09/03/16 15:11 U Marijuana (THC) Screen Presumptive positive 09/03/16 15:11 Drugs of Abuse Note Disclamer 09/03/16 15:11 Rheumatoid Factor 24 IU/ml (0-13) H 09/08/16 11:48 SAHIL Screen Negative (Negative) 09/07/16 09:20 Proteinase 3 (PR3) Ab <1.0 AI (<1.0) 09/07/16 09:20 Myeloperoxidase Ab <1.0 AI (<1.0) 09/07/16 09:20 Sjogren's Antibody <1.0 AI (<1.0) 09/08/16 15:35 Scl-70 Scleroderma Ab <1.0 AI (<1.0) 09/08/16 15:35 Centromere B Antibody <1.0 AI (<1.0) 09/08/16 12:02 Heparin-induced Plt Ab Negative (Negative) 09/29/16 13:35 UF Heparin High Dose 11 % Release 09/29/16 13:35 SUDHIR UFH Low Dose 0.1 6 % Release 09/29/16 13:35 SUDHIR UFH Low Dose 0.5 8 % Release 09/29/16 13:35 Cardiolipid IgG Ab <14 GPL (<=14) 09/12/16 09:59 Cardiolipid IgA Ab <11 APL (<=11) 09/12/16 09:59 Cardiolipid IgM Ab <12 MPL (<=12) 09/12/16 09:59 Complement C3 148 mg/dL (90-180) 09/07/16 09:20 Complement C4 58 mg/dL (16-47) H 09/07/16 09:20 RPR Nonreactive (Nonreactive) 09/08/16 11:48 Hepatitis A IgM Ab Non-reactive (NonReactive) 09/24/16 14:40 Hep Bs Antigen Non-reactive (Negative) 09/24/16 14:40 Hep B Core IgM Ab Non-reactive (NonReactive) 09/24/16 14:40 Hepatitis C Antibody Non-reactive (NonReactive) 09/24/16 14:40 HIV 1&2 Antibody Rapid Non react (Non React) 09/08/16 11:48 HIV P24 Antigen Non react (Non React) 09/08/16 11:48 Miscellaneous Test Flexitest 1 H 01/09/17 18:45 Blood Type A POSITIVE 03/14/17 16:55 Antibody Screen Negative 03/14/17 16:55 DELORIS Antibody Screen Negative 11/24/16 11:20 Crossmatch See Detail 03/14/17 16:55
[2017-03-17] MEDS ORDERED: TPN ADULT IV SCH (20:00)
[2017-03-17] MEDS ORDERED: INTRALIPID 20% 250 ML IV SCH (20:00)
[2017-03-18] MEDS: HumuLIN R SUB-Q SCH ×4 (00:48→18:12)
[2017-03-18 05:29] LABS: Calcium 8.3 mg/dL (8.4-10.2)
[2017-03-18] MEDS: FLAGYL 500 MG/100 ML 500 MG/100 ML BAG IV SCH ×3 (07:20→22:26)
--- NOTE | 2017-03-18 07:30 | Progress Note ---
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 UF as tolerated. Patient's serum creatinine is noted to be low - due to wasting of muscle mass. Needs to be maintained on dialysis at this time. * hypercalcemia work up - likely due to immobilization * Abx management per ID * Adjust Ca bath with dialysis prn * Transfuse pRBC per primary team. Epogen TIW prn * Vent management per pulm/CCM * Pressors prn for MAP>65 * Dose medications for renal function Subjective Date of service: 03/18/17 Principal diagnosis: Acute resp failure on MVS; S/P Acute CVA; Acute Encephalopathy; JUANITA Interval history: new events from last pm noted Objective - Exam Narrative Exam: Gen. appearance: Patient lying in bed, no apparent distress, 4. restraints HEENT: Normocephalic, atraumatic, pupils equally round and reactive to light, extraocular movement intact, and no sclericterus,. No JVD or thyromegaly or nodule,neck supple, no carotid bruit ,mucous membranes moist, unable to examine oral cavity Heart: S1, S2, regular rate and rhythm Lungs: Clear to auscultation bilaterally, breathing comfortable Abdomen: Positive bowel sounds, nontender, nondistended, no organomegaly Extremity: No edema, cyanosis, clubbing Skin: No rash, nodules, warm, dry Neuro: Difficult to assess, facial droop, moves all 4 extremities - Vital Signs Vital signs: Vital Signs - 12hr 03/17/17 03/17/17 03/17/17 20:00 20:55 21:00 Temperature 98.3 F Pulse Rate 104 H 107 H 110 H Pulse Rate [ 107 H Throughout] Respiratory 35 H 19 12 Rate Respiratory 19 Rate [ Throughout] Blood Pressure 103/64 115/85 115/85 O2 Sat by Pulse 99 100 Oximetry O2 Sat by Pulse Oximetry [ Assessment] 03/18/17 03/18/17 03/18/17 00:00 00:30 04:00 Temperature 98.9 F 98.8 F Pulse Rate 100 H Pulse Rate [ Throughout] Respiratory Rate Respiratory Rate [ Throughout] Blood Pressure 90/61 O2 Sat by Pulse 100 Oximetry O2 Sat by Pulse Oximetry [ Assessment] 03/18/17 03/18/17 05:00 05:28 Temperature Pulse Rate 101 H Pulse Rate [ Throughout] Respiratory Rate Respiratory Rate [ Throughout] Blood Pressure 89/60 O2 Sat by Pulse 100 Oximetry O2 Sat by Pulse 100 Oximetry [ Assessment] - Lab 03/15/17 05:03 03/18/17 04:00 Most recent lab results ABG pH 7.450 pH Units (7.350-7.450) 12/05/16 Unknown ABG pCO2 29.6 mm Hg 12/05/16 Unknown ABG pO2 75.2 mm Hg (80.0-90.0) L 12/05/16 Unknown ABG HCO3 20.1 mmol/L (20.0-26.0) 12/05/16 Unknown ABG O2 Saturation 96.8 % (95.0-99.0) 12/05/16 Unknown Calcium 8.3 mg/dL (8.4-10.2) L 03/18/17 04:00 Phosphorus 4.10 mg/dL (2.5-4.5) D 03/18/17 04:00 Magnesium 1.70 mg/dL (1.7-2.3) 03/18/17 04:00 Urine Creatinine 19.7 mg/dL (0.1-20.0) 11/12/16 10:18 Urine Sodium 36 mEq/L 09/16/16 19:19 Urine Total Protein 16 mg/dL (5-11.8) H 09/16/16 19:19
[2017-03-18] MEDS: DUONEB *Not for PRN Use IH SCH ×3 (07:37→19:50)
[2017-03-18] MEDS: LOPRESSOR IV SCH ×3 (08:50→22:27)
--- NOTE | 2017-03-18 09:09 | Progress Note ---
Assessment and Plan Assessment and plan: 47-year-old female patient multiple medical problems, large CVA , hypoxic encephalopathy , status post cardiac arrest , vegetative state , atrial fibrillation , sepsis , aspiration pneumonia , end-stage renal disease on hemodialysis , multiple sacral and lower extremity decubiti requiring debridement , severe protein calorie malnutrition peritonitis / perforation, multiple surgeries, DO NOT RESUSCITATE status,prolonged hospital stay and poor prognosis, --Status post cardiac arrest/anoxic encephalopathy/status post tracheostomy --Large CVA; with midline shift, continue current management --Persistent vegetative state/DO NOT RESUSCITATE status, family not ready for hospice -- sepsis,recurrent enterococcal bacteremia ; continue cefepime and metronidazole per ID --Perforated bowel/large fluid collection, s/p drain placement; management per surgery --Acute respiratory failure status post tracheostomy vent dependent --Hypotension; monitor Levophed as needed --A. fib with rapid ventricular rate; continue amiodarone --Peritonitis ; due to gastric perforation, status post exploratory laparotomy, but gastrostomy, abdominal washout and drain placement, on TPN --End-stage renal disease on hemodialysis --Aspiration pneumonia; completed multiple courses of antibiotics, ID following --Severe protein calorie malnutrition; nutrition consult and supportive care --Multiple sacral and lower extremity decubitus ulcers; status post debridement , continue wound care --DO NOT RESUSCITATE status Poor prognosis, had many family meetings in the past, family aware of patient's poor prognosis Critical care time 31 minutes - The high probability of a clinically significant, sudden or life threatening deterioration of the [neurologic, CV] system(s) required my full and direct attention, intervention and personal management. The aggregate critical care time was [31] minutes. This time is in addition to time spent performing reported procedures but includes the following: [x] Data Review and interpretation [x] Patient assessment and monitoring of vital signs [x] Documentation [x] Medication orders and management History Interval history: Patient seen and examined Clinically no change Spontaneous opening eyes Tracheostomy on vent Vital signs reviewed Hospitalist Physical - Constitutional Vitals: Temp Pulse Resp BP Pulse Ox 97.4 F L 101 H 21 87/60 100 03/18/17 08:00 03/18/17 08:00 03/18/17 08:00 03/18/17 08:00 03/18/17 07:50 General appearance: Present: no acute distress, cachectic, other (spontaneous opening of eyes, unresponsive) - EENT Eyes: Present: PERRL, EOM intact - Neck Neck: Present: supple, normal ROM - Respiratory Respiratory effort: normal Respiratory: bilateral: diminished, rales, rhonchi, negative: wheezing - Cardiovascular Rhythm: regular Heart Sounds: Present: S1 & S2 - Extremities Extremities: no ischemia Extremity abnormal: edema - Abdominal General gastrointestinal: soft, non-tender, non-distended, normal bowel sounds - Integumentary Integumentary: Present: clear, warm - Psychiatric Psychiatric: other (noncommunicative) - Neurologic Neurologic: other (noncommunicative) Results - Labs CBC & Chem 7: 03/15/17 05:03 03/18/17 04:00 Labs: Laboratory Last Values WBC 15.2 K/mm3 (4.5-11.0) H 03/15/17 05:03 RBC 2.42 M/mm3 (3.65-5.03) L 03/15/17 05:03 Hgb 6.9 gm/dl (10.1-14.3) L 03/15/17 05:03 Hct 22.2 % (30.3-42.9) L 03/15/17 05:03 MCV 91 fl (79-97) 03/15/17 05:03 MCH 28 pg (28-32) 03/15/17 05:03 MCHC 31 % (30-34) 03/15/17 05:03 RDW 18.4 % (13.2-15.2) H 03/15/17 05:03 Plt Count 193 K/mm3 (140-440) 03/15/17 05:03 Lymph % (Auto) [place] Worker 03/14/17 14:30 [place] % (Auto) [place] Worker 03/14/17 14:30 Eos % (Auto) [place] Worker 03/14/17 14:30 Baso % (Auto) [place] Worker 03/14/17 14:30 Lymph # [place] Worker 03/14/17 14:30 [place] # [place] Worker 03/14/17 14:30 Eos # [place] Worker 03/14/17 14:30 Baso # [place] Worker 03/14/17 14:30 Add Manual Diff Complete 03/14/17 14:30 Total Counted 100 03/14/17 14:30 Seg Neutrophils % [place] Worker 03/14/17 14:30 Seg Neuts % (Manual) 70.0 % (40.0-70.0) 03/14/17 14:30 Band Neutrophils % 0 % 03/14/17 14:30 Lymphocytes % (Manual) 13.0 % (13.4-35.0) L 03/14/17 14:30 Reactive Lymphs % (Man) 1.0 % 03/14/17 14:30 Monocytes % (Manual) 15.0 % (0.0-7.3) H 03/14/17 14:30 Eosinophils % (Manual) 1.0 % (0.0-4.3) 03/14/17 14:30 Basophils % (Manual) 0 % (0.0-1.8) 03/14/17 14:30 Metamyelocytes % 0 % 03/14/17 14:30 Myelocytes % 0 % 03/14/17 14:30 Promyelocytes % 0 % 03/14/17 14:30 Blast Cells % 0 % 03/14/17 14:30 Nucleated RBC % Not Reportable 03/14/17 14:30 Seg Neutrophils # [place] Worker 03/14/17 14:30 Seg Neutrophils # Man 12.3 K/mm3 (1.8-7.7) H 03/14/17 14:30 Band Neutrophils # 0.0 K/mm3 03/14/17 14:30 Lymphocytes # (Manual) 2.3 K/mm3 (1.2-5.4) 03/14/17 14:30 Abs React Lymphs (Man) 0.2 K/mm3 03/14/17 14:30 Monocytes # (Manual) 2.6 K/mm3 (0.0-0.8) H 03/14/17 14:30 Eosinophils # (Manual) 0.2 K/mm3 (0.0-0.4) 03/14/17 14:30 Basophils # (Manual) 0.0 K/mm3 (0.0-0.1) 03/14/17 14:30 Metamyelocytes # 0.0 K/mm3 03/14/17 14:30 Myelocytes # 0.0 K/mm3 03/14/17 14:30 Promyelocytes # 0.0 K/mm3 03/14/17 14:30 Blast Cells # 0.0 K/mm3 03/14/17 14:30 Pathologist Review 09/13/16 04:00 WBC Morphology Not Reportable 03/14/17 14:30 Hypersegmented Neuts Not Reportable 03/14/17 14:30 Hyposegmented Neuts Not Reportable 03/14/17 14:30 Hypogranular Neuts Not Reportable 03/14/17 14:30 Smudge Cells Not Reportable 03/14/17 14:30 Toxic Granulation Not Reportable 03/14/17 14:30 Toxic Vacuolation Not Reportable 03/14/17 14:30 Dohle Bodies Not Reportable 03/14/17 14:30 Pelger-Huet Anomaly Not Reportable 03/14/17 14:30 Jasmina Rods Not Reportable 03/14/17 14:30 Platelet Estimate Consistent w auto 03/14/17 14:30 Clumped Platelets Not Reportable 03/14/17 14:30 Plt Clumps, EDTA Not Reportable 03/14/17 14:30 Large Platelets Not Reportable 03/14/17 14:30 Giant Platelets Not Reportable 03/14/17 14:30 Platelet Satelliting Not Reportable 03/14/17 14:30 Plt Morphology Comment Not Reportable 03/14/17 14:30 RBC Morphology Not Reportable 03/14/17 14:30 Dimorphic RBCs Not Reportable 03/14/17 14:30 Polychromasia Not Reportable 03/14/17 14:30 Hypochromasia 2+ 03/14/17 14:30 Poikilocytosis Not Reportable 03/14/17 14:30 Anisocytosis 1+ 03/14/17 14:30 Microcytosis Not Reportable 03/14/17 14:30 Macrocytosis Not Reportable 03/14/17 14:30 Spherocytes Not Reportable 03/14/17 14:30 Pappenheimer Bodies Not Reportable 03/14/17 14:30 Sickle Cells Not Reportable 03/14/17 14:30 Target Cells Not Reportable 03/14/17 14:30 Tear Drop Cells Not Reportable 03/14/17 14:30 Ovalocytes Not Reportable 03/14/17 14:30 Stomatocytes 2+ 03/14/17 14:30 Helmet Cells Not Reportable 03/14/17 14:30 [place] Bodies Not Reportable 03/14/17 14:30 [place] Rings Not Reportable 03/14/17 14:30 Chuck Cells Not Reportable 03/14/17 14:30 Bite Cells Not Reportable 03/14/17 14:30 Crenated Cell Not Reportable 03/14/17 14:30 Elliptocytes Not Reportable 03/14/17 14:30 Acanthocytes (Spur) Not Reportable 03/14/17 14:30 Rouleaux Not Reportable 03/14/17 14:30 Hemoglobin C Crystals Not Reportable 03/14/17 14:30 Schistocytes Not Reportable 03/14/17 14:30 Malaria parasites Not Reportable 03/14/17 14:30 ESR > 140.0 mm/Hr (0-20) 09/08/16 11:48 Jun Bodies Not Reportable 03/14/17 14:30 Hem Pathologist Commnt No 03/14/17 14:30 PT 15.4 Sec. (12.2-14.9) H 01/13/17 15:50 INR 1.16 (0.87-1.13) H 01/13/17 15:50 APTT 33.0 Sec. (24.2-36.6) 10/09/16 03:45 Thrombin Time 16.8 Sec. (15.1-19.6) 09/03/16 00:10 Fibrinogen 750 mg/dl (211-480) H 09/08/16 11:48 Lupus Anticoagulant see below 09/12/16 09:59 LA PTT Baseline See scanned report 09/12/16 09:59 dRVVT Confirm Interp Positive (Negative) H 09/12/16 09:59 dRVVT Screen 50:50 See scanned report 09/12/16 09:59 dRVVT Mix Interpret See scanned report 09/12/16 09:59 Protein C Antigen 122 % (70-140) 09/08/16 15:35 Free Protein S 97 % normal (50-147) 09/08/16 15:35 Total Protein S 109 % (70-140) 09/08/16 15:35 Antithrombin III Ag 100 % (80-120) 09/08/16 15:35 Heparin Anti-Xa, Unfract Negative (Negative) 09/29/16 13:35 Factor V Activity 182 % (65-150) H 09/08/16 15:35 POC ABG pH 7.518 (7.35-7.45) H 03/03/17 20:17 ABG pH 7.450 pH Units (7.350-7.450) 12/05/16 Unknown POC ABG pCO2 28.8 (35-45) L 03/03/17 20: ABG pCO2 29.6 mm Hg 12/05/16 Unknown POC ABG pO2 61 (80-105) L 03/03/17 20: ABG pO2 75.2 mm Hg (80.0-90.0) L 12/05/16 Unknown POC ABG HCO3 23.4 03/03/17 20: ABG HCO3 20.1 mmol/L (20.0-26.0) 12/05/16 Unknown POC ABG Total CO2 24 03/03/17 20: POC ABG O2 Sat 94 03/03/17: ABG O2 Saturation 96.8 % (95.0-99.0) 12/05/16 Unknown ABG O2 Content 9.9 (0.0-44) 12/05/16 Unknown POC ABG Base Excess 0 03/03/17: ABG Base Excess -3.4 mmol/L (-2.0-3.0) L 12/05/16 Unknown ABG Hemoglobin 7.4 gm/dl (12.0-16.0) L 12/05/16 Unknown ABG Carboxyhemoglobin 1.8 % (0.0-5.0) 12/05/16 Unknown ABG Methemoglobin 0.6 % (0.0-1.5) 12/05/16 Unknown Oxyhemoglobin 94.5 % (95.0-99.0) L 12/05/16 Unknown FiO2 40 % 03/03/17 20: Sodium 137 mmol/L (137-145) 03/18/17 04:00 Potassium 4.2 mmol/L (3.6-5.0) 03/18/17 04:00 Chloride 98.8 mmol/L (98-107) 03/18/17 04:00 Carbon Dioxide 26 mmol/L (22-30) 03/18/17 04:00 Anion Gap 16 mmol/L 03/18/17 04:00 BUN 23 mg/dL (7-17) H 03/18/17 04:00 Creatinine 1.3 mg/dL (0.7-1.2) H 03/18/17 04:00 Estimated GFR 53 ml/min 03/18/17 04:00 BUN/Creatinine Ratio 18 % 03/18/17 04:00 Glucose 122 mg/dL (65-100) H 03/18/17 04:00 POC Glucose 139 (70-105) H 03/18/17 05:47 Osmolality 351 Mosm/kg 09/16/16 11:47 Lactic Acid 2.30 mmol/L (0.7-2.0) H* 01/09/17 08:22 Calcium 8.3 mg/dL (8.4-10.2) L 03/18/17 04:00 Ionized Calcium 6.0 mg/dL (4.8-5.6) H 02/15/17 19:08 Phosphorus 4.10 mg/dL (2.5-4.5) D 03/18/17 04:00 Magnesium 1.70 mg/dL (1.7-2.3) 03/18/17 04:00 Total Bilirubin 0.50 mg/dL (0.1-1.2) 03/06/17 03:52 Direct Bilirubin 0.2 mg/dL (0-0.2) 01/28/17 04:00 Indirect Bilirubin 0.3 mg/dL 01/28/17 04:00 AST 18 units/L (5-40) 03/06/17 03:52 ALT 18 units/L (7-56) 03/06/17 03:52 Alkaline Phosphatase 165 units/L (35-129) H 03/06/17 03:52 Ammonia 27.0 umol/L (25-60) 09/07/16 08:37 Lactate Dehydrogenase 170 units/L (91-180) 01/13/17 15:50 Total Creatine Kinase 121 units/L (30-135) 09/29/16 20:12 CK-MB (CK-2) < 1.0 ng/mL (0.0-4.0) 09/29/16 20:12 CK-MB (CK-2) Rel Index 0.8 (0-4) 09/29/16 20:12 Troponin T 0.204 ng/mL (0.00-0.029) H* 09/29/16 20:12 C-Reactive Protein 19.50 mg/dL (0.00-1.30) H 03/14/17 12:51 Total Protein 7.0 g/dL (6.3-8.2) 03/06/17 03:52 Albumin 1.5 g/dL (3.9-5) L 03/06/17 03:52 Albumin/Globulin Ratio 0.3 % 03/06/17 03:52 Prealbumin 0.110 g/L (0.200-0.400) L 12/29/16 05:15 Triglycerides 55 mg/dL (2-149) 02/06/17 04:45 Cholesterol 31 mg/dL (50-199) L 09/29/16 20:12 LDL Cholesterol Direct 4 mg/dL (50-130) L 09/29/16 20:12 HDL Cholesterol 3 mg/dL (40-59) L 09/29/16 20:12 Cholesterol/HDL Ratio 10.33 % 09/29/16 20:12 Angiotensin Convert Enz See scanned report 09/08/16 11:48 Renin 0.99 ng/mL/h (0.25-5.82) 10/07/16 10:56 Aldosterone <1 ng/dL () 10/07/16 10:56 Aldosterone/Renin Dir see below 10/07/16 10:56 Serotonin Release Assay See scanned report 09/29/16 13:35 25-OH Vitamin D Total 13 ng/mL (30-100) L 02/15/17 19:08 25-Hydroxy Vitamin D2 . 02/15/17 19:08 25-Hydroxy Vitamin D3 . 02/15/17 19:08 TSH 1.010 mlU/mL (0.270-4.200) 09/07/16 08:37 HCG, Qual Negative (Negative) 09/03/16 00:10 PTH Intact 10.88 pg/mL (15-65) L 02/15/17 19:08 Total Cortisol 18.2 mcg/dL () 02/02/17 20:09 Urine Color Yellow (Yellow) 11/05/16 13:09 Urine Turbidity Clear (Clear) 11/05/16 13:09 Urine pH 9.0 (5.0-7.0) H 11/05/16 13:09 Ur Specific [place] 1.011 (1.003-1.030) 11/05/16 13:09 Urine Protein 100 mg/dl mg/dL (Negative) 11/05/16 13:09 Urine Glucose (UA) Neg mg/dL (Negative) 11/05/16 13:09 Urine Ketones Neg mg/dL (Negative) 11/05/16 13:09 Urine Blood Neg (Negative) 11/05/16 13:09 Urine Nitrite Neg (Negative) 11/05/16 13:09 Urine Bilirubin Neg (Negative) 11/05/16 13:09 Urine Urobilinogen < 2.0 mg/dL (<2.0) 11/05/16 13:09 Ur Leukocyte Esterase Neg (Negative) 11/05/16 13:09 Urine WBC (Auto) 4.0 /HPF (0.0-6.0) 11/05/16 13:09 Urine RBC (Auto) 1.0 /HPF (0.0-6.0) 11/05/16 13:09 U Epithel Cells (Auto) 1.0 /HPF (0-13.0) 10/07/16 18:30 Urine Bacteria (Auto) 4+ /HPF (Negative) 11/05/16 13:09 Urine WBC Clumps 2+ /HPF 09/07/16 02:47 Hyaline Casts 4 /LPF 09/07/16 02:47 Urine Mucus Few /HPF 10/07/16 18:30 Urine Yeast (Budding) 3+ /HPF 10/07/16 18:30 Urine Eosinophils None seen (None Seen) 09/07/16 16:00 Urine Total Volume 950 11/12/16 10:18 Urine Creatinine 19.7 mg/dL (0.1-20.0) 11/12/16 10:18 Height (in) 65.0 inches 11/12/16 10:18 Weight (lb) 181.0 lbs 11/12/16 10:18 Creatinine Clearance 5 11/12/16 10:18 Urine Sodium 36 mEq/L 09/16/16 19:19 Urine Total Protein 16 mg/dL (5-11.8) H 09/16/16 19:19 Fluid Type Pleural 01/13/17 12:10 Fluid Color Yellow 01/13/17 12:10 Fluid Appearance Hazy 01/13/17 12:10 Fluid WBC 182 /mm3 01/13/17 12:10 Fluid RBC 41 /mm3 01/13/17 12:10 Fluid Seg Neutrophils 85.0 % 01/13/17 12:10 Fluid Lymphocytes 8.0 % 01/13/17 12:10 Fluid Reactive Lymphs 0 % 01/13/17 12:10 Fluid Monocytes 6.0 % 01/13/17 12:10 Fluid Eosinophils 1.0 % 01/13/17 12:10 Fluid Basophils 0 % 01/13/17 12:10 Fluid Total Protein 3.0 (15.0-45.0) L 01/13/17 12:10 Fluid LDH 1322 01/13/17 12:10 Fluid Comment Diff performed 01/13/17 12:10 Vancomycin Trough 2.3 ug/mL (5.0-20.0) L 09/21/16 13:00 Random Vancomycin 26.0 ug/mL (0-40.0) 03/13/17 05:39 Urine Opiates Screen Presumptive negative 09/03/16 15:11 Urine Methadone Screen Presumptive positive 09/03/16 15:11 Ur Barbiturates Screen Presumptive positive 09/03/16 15:11 Ur Phencyclidine Scrn Presumptive negative 09/03/16 15:11 Ur Amphetamines Screen Presumptive negative 09/03/16 15:11 U Benzodiazepines Scrn Presumptive negative 09/03/16 15:11 Urine Cocaine Screen Presumptive negative 09/03/16 15:11 U Marijuana (THC) Screen Presumptive positive 09/03/16 15:11 Drugs of Abuse Note Disclamer 09/03/16 15:11 Rheumatoid Factor 24 IU/ml (0-13) H 09/08/16 11:48 SAHIL Screen Negative (Negative) 09/07/16 09:20 Proteinase 3 (PR3) Ab <1.0 AI (<1.0) 09/07/16 09:20 Myeloperoxidase Ab <1.0 AI (<1.0) 09/07/16 09:20 Sjogren's Antibody <1.0 AI (<1.0) 09/08/16 15:35 Scl-70 Scleroderma Ab <1.0 AI (<1.0) 09/08/16 15:35 Centromere B Antibody <1.0 AI (<1.0) 09/08/16 12:02 Heparin-induced Plt Ab Negative (Negative) 09/29/16 13:35 UF Heparin High Dose 11 % Release 09/29/16 13:35 SUDHIR UFH Low Dose 0.1 6 % Release 09/29/16 13:35 SUDHIR UFH Low Dose 0.5 8 % Release 09/29/16 13:35 Cardiolipid IgG Ab <14 GPL (<=14) 09/12/16 09:59 Cardiolipid IgA Ab <11 APL (<=11) 09/12/16 09:59 Cardiolipid IgM Ab <12 MPL (<=12) 09/12/16 09:59 Complement C3 148 mg/dL (90-180) 09/07/16 09:20 Complement C4 58 mg/dL (16-47) H 09/07/16 09:20 RPR Nonreactive (Nonreactive) 09/08/16 11:48 Hepatitis A IgM Ab Non-reactive (NonReactive) 09/24/16 14:40 Hep Bs Antigen Non-reactive (Negative) 09/24/16 14:40 Hep B Core IgM Ab Non-reactive (NonReactive) 09/24/16 14:40 Hepatitis C Antibody Non-reactive (NonReactive) 09/24/16 14:40 HIV 1&2 Antibody Rapid Non react (Non React) 09/08/16 11:48 HIV P24 Antigen Non react (Non React) 09/08/16 11:48 Miscellaneous Test Flexitest 1 H 01/09/17 18:45 Blood Type A POSITIVE 03/14/17 16:55 Antibody Screen Negative 03/14/17 16:55 DELORIS Antibody Screen Negative 11/24/16 11:20 Crossmatch See Detail 03/14/17 16:55
--- NOTE | 2017-03-18 10:18 | Progress Note ---
Assessment and Plan Patient is 46-year-old woman with a history of hypertension, diabetes mellitus, asthma, hyperlipidemia, chronic kidney disease and anxiety, who was brought in by family because she couldn't get her words out, her face was also twisted, she was admitted for acute CVA and accelerated hypertension, she had a hx of poor adherence with her medications, and uncontrolled hypertension. Patient's SBP on admission was noted be greater than 260. TPA was started but this it was discontinued after 5 minutes because her blood pressure became uncontrolled. The TPA was not initiated again because the patient was outside the TPA window. Patient has had a prolonged hospital stay complicated with recurrent severe sepsis. Patient with most recent event also status post cardiac arrest on 11/21/16 , with CPR and ROSC. Acute on chronic Hypoxemic Respiratory Failure Sepsis -recurrent Intrabdominal abscess s/p peritoneal drain per IR s/p tracheostomy Hypertension Atrial Fibrillation with RVR Acute encephalopathy s/p CVA Oropharyngeal dysphagia Enterococcal bacteremia Sacral Decubitus Ulcer- unstageable s/p debridement Anemia Obesity JUANITA now on hemodialysis prn Enteric Fistula - VAP bundle addressed - continue NGT to LIS - continue wound care/wound vac per WCT - Vasopressor if MAP falls < 65mmHg - keep on with daily PSV trials and / or T-piece as tolerated - continue TPN administration (continue TPN; NPO except for meds) - continue airway clearance and secretion management - continue to wean FiO2 for sats > 94% - continue to monitor hemodynamics closely - continue HD/UF per nephrology - continue to follow electrolytes and correct as necessary - continue GI & VTE prophylaxis Transfuse 1 unit PRBC as needed to keep HgH>7g/dL .....she remains critically ill on life sustaining interventions including MVS and at risk for further deterioration including ...ch[facility] prognosis remains poor ...DNR in the event of cardiac arrest - Patient Problems (1) Acute respiratory failure with hypoxia Current Visit: Yes Status: Acute (2) Acute blood loss anemia Current Visit: Yes Status: Resolved (3) Acute CVA (cerebrovascular accident) Current Visit: Yes Status: Acute (4) Chronic renal insufficiency Current Visit: Yes Status: Acute (5) Uncontrolled hypertension Current Visit: Yes Status: Acute (6) Leukocytosis (leucocytosis) Current Visit: Yes Status: Acute Qualifiers: Leukocytosis type: leukemoid reaction Qualified Code(s): D72.823 - Leukemoid reaction (7) Dislodged gastrostomy tube Current Visit: Yes Status: Acute (8) Fungemia Current Visit: Yes Status: Resolved (9) Cardiopulmonary arrest with successful resuscitation Current Visit: Yes Status: Acute Subjective Date of service: 03/18/17 Principal diagnosis: Acute resp failure on MVS; S/P Acute CVA; Acute Encephalopathy; JUANITA Interval history: Patient is seen today for: Acute resp failure on MVS; S/P Acute CVA; Acute Encephalopathy; JUANITA Seen and examined at bedside; 24hour events reviewed; nursing and respiratory care staff consulted; no adverse overnight events reported to me; she remains chronically critically ill. No fevers Off norepinephrine and WCC trending down since bed side intra abdominal drain was placed. Discussed during interdisciplinary ICU team rounds Objective - Exam Narrative Exam: Gen. appearance: Patient lying in bed, no apparent distress,s/p tracheostomy to MVS HEENT: Normocephalic, atraumatic, pupils equally round and reactive to light, extraocular movement intact, and no sclericterus,. No JVD or thyromegaly or nodule,neck supple, no carotid bruit ,mucous membranes moist, unable to examine oral cavity, ulcerations of lower lip Heart: S1, S2, regular rate and rhythm Lungs: Clear to auscultation bilaterally, breathing comfortable Abdomen: Positive bowel sounds, nontender, nondistended, no organomegaly Extremity: No edema, cyanosis, clubbing Skin: No rash, nodules, warm, dry Neuro:Posturing with touch, awake, spontaneous eye opening, remains encephalopathic Vital Signs - 12hr 03/17/17 03/17/17 03/17/17 22:30 23:00 23:30 Temperature Pulse Rate 106 H 103 H 103 H Pulse Rate [ Throughout] Respiratory 19 16 16 Rate Respiratory Rate [ Throughout] Blood Pressure 87/55 91/56 83/55 O2 Sat by Pulse 100 100 100 Oximetry O2 Sat by Pulse Oximetry [ Assessment] 03/18/17 03/18/17 03/18/17 00:00 00:30 01:00 Temperature 98.9 F Pulse Rate 101 H 101 H 100 H Pulse Rate [ Throughout] Respiratory 16 22 14 Rate Respiratory Rate [ Throughout] Blood Pressure 90/58 89/57 106/70 O2 Sat by Pulse 100 99 100 Oximetry O2 Sat by Pulse Oximetry [ Assessment] 03/18/17 03/18/17 03/18/17 01:30 02:00 02:30 Temperature Pulse Rate 99 H 102 H 112 H Pulse Rate [ Throughout] Respiratory 24 15 22 Rate Respiratory Rate [ Throughout] Blood Pressure 91/52 90/62 108/80 O2 Sat by Pulse 100 100 93 Oximetry O2 Sat by Pulse Oximetry [ Assessment] 03/18/17 03/18/17 03/18/17 03:00 03:30 04:00 Temperature 98.8 F Pulse Rate 100 H 101 H 100 H Pulse Rate [ Throughout] Respiratory 12 14 17 Rate Respiratory Rate [ Throughout] Blood Pressure 101/70 95/64 89/60 O2 Sat by Pulse 100 100 96 Oximetry O2 Sat by Pulse Oximetry [ Assessment] 03/18/17 03/18/17 03/18/17 04:30 05:00 05:01 Temperature Pulse Rate 105 H 101 H 109 H Pulse Rate [ Throughout] Respiratory 16 16 Rate Respiratory Rate [ Throughout] Blood Pressure 107/73 89/60 109/74 O2 Sat by Pulse 100 100 100 Oximetry O2 Sat by Pulse Oximetry [ Assessment] 03/18/17 03/18/17 03/18/17 05:28 05:30 06:00 Temperature Pulse Rate 99 H 95 H Pulse Rate [ Throughout] Respiratory 14 14 Rate Respiratory Rate [ Throughout] Blood Pressure 101/65 97/59 O2 Sat by Pulse 100 Oximetry O2 Sat by Pulse 100 Oximetry [ Assessment] 03/18/17 03/18/17 03/18/17 06:30 07:00 07:30 Temperature Pulse Rate 94 H 95 H 98 H Pulse Rate [ Throughout] Respiratory 18 11 L 12 Rate Respiratory Rate [ Throughout] Blood Pressure 99/61 104/60 103/63 O2 Sat by Pulse 100 Oximetry O2 Sat by Pulse Oximetry [ Assessment] 03/18/17 03/18/17 03/18/17 07:37 07:50 08:00 Temperature 97.4 F L Pulse Rate 97 H 101 H Pulse Rate [ 96 H Throughout] Respiratory 21 Rate Respiratory 20 Rate [ Throughout] Blood Pressure 97/66 87/60 O2 Sat by Pulse 100 Oximetry O2 Sat by Pulse Oximetry [ Assessment] Constitutional: appears uncomfortable, other (not tracking) Eyes: non-icteric, other (tracheostomy tube in midline of neck) ENT: oropharynx moist, oropharyngeal exudate pre, other (midline tracheostomy tube) Neck: supple, no lymphadenopathy, no JVD, other (no thyromegaly) Effort: mildly labored Ascultation: Bilateral: clear, diminished breath sounds (bases R>L), rales, rhonchi (and referred upper airway sounds) Percussion: Right: dull (base), Bilateral: not dull Cardiovascular: regular rate and rhythm, other (no rubs / murmurs) Gastrointestinal: hypoactive bowel sounds, soft, non-tender, non-distended, other (RLQ & LUQ stomas with colostomy bags) Integumentary: decubitus ulcer (sacral; stage 4 s/p surgical debridement), other (no rash; no cellulitis; poor turgor) Extremities: no cyanosis, pulses normal, no ischemia or petechiae, edema (1+ bilaterally) Neurologic: pupils equal and round, unable to assess, other (encephalopathic) Psychiatric: other (unable to assess) CBC and BMP: 03/15/17 05:03 03/18/17 04:00 ABG, PT/INR, D-dimer: ABG POC ABG pH 7.518 (7.35-7.45) H 03/03/17 20: ABG pH 7.450 pH Units (7.350-7.450) 12/05/16 Unknown POC ABG pCO2 28.8 (35-45) L 03/03/17 20: ABG pCO2 29.6 mm Hg 12/05/16 Unknown POC ABG pO2 61 (80-105) L 03/03/17 20: ABG pO2 75.2 mm Hg (80.0-90.0) L 12/05/16 Unknown POC ABG HCO3 23.4 03/03/17 20: POC ABG Total CO2 24 03/03/17 20:17 POC ABG O2 Sat 94 03/03/17 20: ABG O2 Saturation 96.8 % (95.0-99.0) 12/05/16 Unknown PT/INR, D-dimer PT 15.4 Sec. (12.2-14.9) H 01/13/17 15:50 INR 1.16 (0.87-1.13) H 01/13/17 15:50 Abnormal lab findings: Abnormal Labs 09/03/16 09/03/16 09/03/16 00:03 00:10 00:10 WBC 13.9 H RBC 5.95 H Hgb Hct 44.0 H MCV 74 L MCH 22 L MCHC RDW 17.5 H Plt Count Lymph % (Auto) [place] % (Auto) Lymph # [place] # Baso # Seg Neutrophils % Seg Neuts % (Manual) Lymphocytes % (Manual) 54.0 H Monocytes % (Manual) Eosinophils % (Manual) Basophils % (Manual) Nucleated RBC % Seg Neutrophils # Seg Neutrophils # Man Lymphocytes # (Manual) 7.5 H Monocytes # (Manual) Eosinophils # (Manual) Basophils # (Manual) PT INR Fibrinogen dRVVT Confirm Interp Factor V Activity POC ABG pH POC ABG pCO2 POC ABG pO2 ABG pO2 ABG HCO3 ABG Base Excess ABG Hemoglobin Oxyhemoglobin Sodium Potassium 2.8 L* Chloride Carbon Dioxide 21 L BUN Creatinine 1.7 H Glucose 159 H POC Glucose 177 H Lactic Acid Calcium Ionized Calcium Phosphorus Magnesium Direct Bilirubin AST ALT Alkaline Phosphatase Lactate Dehydrogenase Troponin T C-Reactive Protein Total Protein Albumin Prealbumin Triglycerides Cholesterol LDL Cholesterol Direct HDL Cholesterol 25-OH Vitamin D Total PTH Intact Urine pH Urine WBC (Auto) Urine Creatinine Urine Total Protein Fluid Total Protein Vancomycin Trough Rheumatoid Factor Complement C4 Miscellaneous Test Crossmatch 09/03/16 09/03/16 09/03/16 12:12 15:07 16:20 WBC RBC Hgb Hct MCV MCH MCHC RDW Plt Count Lymph % (Auto) [place] % (Auto) Lymph # [place] # Baso # Seg Neutrophils % Seg Neuts % (Manual) Lymphocytes % (Manual) Monocytes % (Manual) Eosinophils % (Manual) Basophils % (Manual) Nucleated RBC % Seg Neutrophils # Seg Neutrophils # Man Lymphocytes # (Manual) Monocytes # (Manual) Eosinophils # (Manual) Basophils # (Manual) PT INR Fibrinogen dRVVT Confirm Interp Factor V Activity POC ABG pH 7.452 H POC ABG pCO2 POC ABG pO2 ABG pO2 ABG HCO3 ABG Base Excess ABG Hemoglobin Oxyhemoglobin Sodium Potassium Chloride Carbon Dioxide BUN Creatinine Glucose POC Glucose 178 H Lactic Acid Calcium Ionized Calcium Phosphorus 2.20 L Magnesium 1.60 L Direct Bilirubin AST ALT Alkaline Phosphatase Lactate Dehydrogenase Troponin T C-Reactive Protein Total Protein Albumin Prealbumin Triglycerides Cholesterol LDL Cholesterol Direct HDL Cholesterol 25-OH Vitamin D Total PTH Intact Urine pH Urine WBC (Auto) Urine Creatinine Urine Total Protein Fluid Total Protein Vancomycin Trough Rheumatoid Factor Complement C4 Miscellaneous Test Crossmatch 09/03/16 09/03/16 09/03/16 17:57 17:58 23:50 WBC RBC Hgb Hct MCV MCH MCHC RDW Plt Count Lymph % (Auto) [place] % (Auto) Lymph # [place] # Baso # Seg Neutrophils % Seg Neuts % (Manual) Lymphocytes % (Manual) Monocytes % (Manual) Eosinophils % (Manual) Basophils % (Manual) Nucleated RBC % Seg Neutrophils # Seg Neutrophils # Man Lymphocytes # (Manual) Monocytes # (Manual) Eosinophils # (Manual) Basophils # (Manual) PT INR Fibrinogen dRVVT Confirm Interp Factor V Activity POC ABG pH POC ABG pCO2 POC ABG pO2 ABG pO2 ABG HCO3 ABG Base Excess ABG Hemoglobin Oxyhemoglobin Sodium Potassium Chloride Carbon Dioxide BUN Creatinine Glucose POC Glucose 162 H 145 H Lactic Acid Calcium Ionized Calcium Phosphorus 2.30 L Magnesium Direct Bilirubin AST ALT Alkaline Phosphatase Lactate Dehydrogenase Troponin T C-Reactive Protein Total Protein Albumin Prealbumin Triglycerides Cholesterol LDL Cholesterol Direct HDL Cholesterol 25-OH Vitamin D Total PTH Intact Urine pH Urine WBC (Auto) Urine Creatinine Urine Total Protein Fluid Total Protein Vancomycin Trough Rheumatoid Factor Complement C4 Miscellaneous Test Crossmatch 09/04/16 09/04/16 09/04/16 03:31 03:31 05:42 WBC RBC Hgb 9.7 L D Hct MCV 72 L MCH 23 L MCHC RDW 17.5 H Plt Count Lymph % (Auto) 11.1 L [place] % (Auto) Lymph # [place] # Baso # Seg Neutrophils % 84.3 H Seg Neuts % (Manual) Lymphocytes % (Manual) Monocytes % (Manual) Eosinophils % (Manual) Basophils % (Manual) Nucleated RBC % Seg Neutrophils # 8.9 H Seg Neutrophils # Man Lymphocytes # (Manual) Monocytes # (Manual) Eosinophils # (Manual) Basophils # (Manual) PT INR Fibrinogen dRVVT Confirm Interp Factor V Activity POC ABG pH POC ABG pCO2 POC ABG pO2 ABG pO2 ABG HCO3 ABG Base Excess ABG Hemoglobin Oxyhemoglobin Sodium 135 L Potassium 2.9 L* Chloride 97.2 L Carbon Dioxide 19 L BUN Creatinine 1.7 H Glucose 170 H POC Glucose 152 H Lactic Acid Calcium Ionized Calcium Phosphorus Magnesium Direct Bilirubin AST ALT Alkaline Phosphatase Lactate Dehydrogenase Troponin T C-Reactive Protein Total Protein Albumin Prealbumin Triglycerides 160 H Cholesterol LDL Cholesterol Direct HDL Cholesterol 31 L 25-OH Vitamin D Total PTH Intact Urine pH Urine WBC (Auto) Urine Creatinine Urine Total Protein Fluid Total Protein Vancomycin Trough Rheumatoid Factor Complement C4 Miscellaneous Test Crossmatch 09/04/16 09/04/16 09/04/16 11:34 17:46 23:29 WBC RBC Hgb Hct MCV MCH MCHC RDW Plt Count Lymph % (Auto) [place] % (Auto) Lymph # [place] # Baso # Seg Neutrophils % Seg Neuts % (Manual) Lymphocytes % (Manual) Monocytes % (Manual) Eosinophils % (Manual) Basophils % (Manual) Nucleated RBC % Seg Neutrophils # Seg Neutrophils # Man Lymphocytes # (Manual) Monocytes # (Manual) Eosinophils # (Manual) Basophils # (Manual) PT INR Fibrinogen dRVVT Confirm Interp Factor V Activity POC ABG pH POC ABG pCO2 POC ABG pO2 ABG pO2 ABG HCO3 ABG Base Excess ABG Hemoglobin Oxyhemoglobin Sodium Potassium Chloride Carbon Dioxide BUN Creatinine Glucose POC Glucose 165 H 210 H 139 H Lactic Acid Calcium Ionized Calcium Phosphorus Magnesium Direct Bilirubin AST ALT Alkaline Phosphatase Lactate Dehydrogenase Troponin T C-Reactive Protein Total Protein Albumin Prealbumin Triglycerides Cholesterol LDL Cholesterol Direct HDL Cholesterol 25-OH Vitamin D Total PTH Intact Urine pH Urine WBC (Auto) Urine Creatinine Urine Total Protein Fluid Total Protein Vancomycin Trough Rheumatoid Factor Complement C4 Miscellaneous Test Crossmatch 09/05/16 09/05/16 09/05/16 04:05 04:05 05:38 WBC RBC Hgb Hct MCV 76 L D MCH 23 L MCHC RDW 17.8 H Plt Count Lymph % (Auto) [place] % (Auto) Lymph # [place] # Baso # Seg Neutrophils % Seg Neuts % (Manual) Lymphocytes % (Manual) Monocytes % (Manual) Eosinophils % (Manual) Basophils % (Manual) Nucleated RBC % Seg Neutrophils # Seg Neutrophils # Man Lymphocytes # (Manual) Monocytes # (Manual) Eosinophils # (Manual) Basophils # (Manual) PT INR Fibrinogen dRVVT Confirm Interp Factor V Activity POC ABG pH POC ABG pCO2 POC ABG pO2 ABG pO2 ABG HCO3 ABG Base Excess ABG Hemoglobin Oxyhemoglobin Sodium 134 L Potassium Chloride Carbon Dioxide 18 L BUN Creatinine 1.8 H Glucose 192 H POC Glucose 175 H Lactic Acid Calcium Ionized Calcium Phosphorus Magnesium Direct Bilirubin AST ALT Alkaline Phosphatase Lactate Dehydrogenase Troponin T C-Reactive Protein Total Protein Albumin Prealbumin Triglycerides Cholesterol LDL Cholesterol Direct HDL Cholesterol 25-OH Vitamin D Total PTH Intact Urine pH Urine WBC (Auto) Urine Creatinine Urine Total Protein Fluid Total Protein Vancomycin Trough Rheumatoid Factor Complement C4 Miscellaneous Test Crossmatch 09/05/16 09/05/16 09/05/16 11:38 17:48 23:22 WBC RBC Hgb Hct MCV MCH MCHC RDW Plt Count Lymph % (Auto) [place] % (Auto) Lymph # [place] # Baso # Seg Neutrophils % Seg Neuts % (Manual) Lymphocytes % (Manual) Monocytes % (Manual) Eosinophils % (Manual) Basophils % (Manual) Nucleated RBC % Seg Neutrophils # Seg Neutrophils # Man Lymphocytes # (Manual) Monocytes # (Manual) Eosinophils # (Manual) Basophils # (Manual) PT INR Fibrinogen dRVVT Confirm Interp Factor V Activity POC ABG pH POC ABG pCO2 POC ABG pO2 ABG pO2 ABG HCO3 ABG Base Excess ABG Hemoglobin Oxyhemoglobin Sodium Potassium Chloride Carbon Dioxide BUN Creatinine Glucose POC Glucose 164 H 186 H 195 H Lactic Acid Calcium Ionized Calcium Phosphorus Magnesium Direct Bilirubin AST ALT Alkaline Phosphatase Lactate Dehydrogenase Troponin T C-Reactive Protein Total Protein Albumin Prealbumin Triglycerides Cholesterol LDL Cholesterol Direct HDL Cholesterol 25-OH Vitamin D Total PTH Intact Urine pH Urine WBC (Auto) Urine Creatinine Urine Total Protein Fluid Total Protein Vancomycin Trough Rheumatoid Factor Complement C4 Miscellaneous Test Crossmatch 09/06/16 09/06/16 09/06/16 04:12 05:59 07:32 WBC RBC Hgb Hct MCV MCH MCHC RDW Plt Count Lymph % (Auto) [place] % (Auto) Lymph # [place] # Baso # Seg Neutrophils % Seg Neuts % (Manual) Lymphocytes % (Manual) Monocytes % (Manual) Eosinophils % (Manual) Basophils % (Manual) Nucleated RBC % Seg Neutrophils # Seg Neutrophils # Man Lymphocytes # (Manual) Monocytes # (Manual) Eosinophils # (Manual) Basophils # (Manual) PT INR Fibrinogen dRVVT Confirm Interp Factor V Activity POC ABG pH 7.514 H POC ABG pCO2 29.1 L POC ABG pO2 72 L ABG pO2 ABG HCO3 ABG Base Excess ABG Hemoglobin Oxyhemoglobin Sodium 133 L Potassium 3.4 L Chloride 94.9 L Carbon Dioxide 19 L BUN 30 H Creatinine 2.1 H Glucose 139 H POC Glucose 146 H Lactic Acid Calcium Ionized Calcium Phosphorus Magnesium Direct Bilirubin AST ALT Alkaline Phosphatase Lactate Dehydrogenase Troponin T C-Reactive Protein Total Protein Albumin Prealbumin Triglycerides Cholesterol LDL Cholesterol Direct HDL Cholesterol 25-OH Vitamin D Total PTH Intact Urine pH Urine WBC (Auto) Urine Creatinine Urine Total Protein Fluid Total Protein Vancomycin Trough Rheumatoid Factor Complement C4 Miscellaneous Test Crossmatch 09/06/16 09/06/16 09/06/16 11:57 17:58 19:02 WBC RBC Hgb Hct MCV MCH MCHC RDW Plt Count Lymph % (Auto) [place] % (Auto) Lymph # [place] # Baso # Seg Neutrophils % Seg Neuts % (Manual) Lymphocytes % (Manual) Monocytes % (Manual) Eosinophils % (Manual) Basophils % (Manual) Nucleated RBC % Seg Neutrophils # Seg Neutrophils # Man Lymphocytes # (Manual) Monocytes # (Manual) Eosinophils # (Manual) Basophils # (Manual) PT INR Fibrinogen dRVVT Confirm Interp Factor V Activity POC ABG pH 7.465 H POC ABG pCO2 32.0 L POC ABG pO2 ABG pO2 ABG HCO3 ABG Base Excess ABG Hemoglobin Oxyhemoglobin Sodium Potassium Chloride Carbon Dioxide BUN Creatinine Glucose POC Glucose 165 H 160 H Lactic Acid Calcium Ionized Calcium Phosphorus Magnesium Direct Bilirubin AST ALT Alkaline Phosphatase Lactate Dehydrogenase Troponin T C-Reactive Protein Total Protein Albumin Prealbumin Triglycerides Cholesterol LDL Cholesterol Direct HDL Cholesterol 25-OH Vitamin D Total PTH Intact Urine pH Urine WBC (Auto) Urine Creatinine Urine Total Protein Fluid Total Protein Vancomycin Trough Rheumatoid Factor Complement C4 Miscellaneous Test Crossmatch 09/06/16 09/07/16 09/07/16 23:45 02:47 02:47 WBC RBC Hgb Hct MCV MCH MCHC RDW Plt Count Lymph % (Auto) [place] % (Auto) Lymph # [place] # Baso # Seg Neutrophils % Seg Neuts % (Manual) Lymphocytes % (Manual) Monocytes % (Manual) Eosinophils % (Manual) Basophils % (Manual) Nucleated RBC % Seg Neutrophils # Seg Neutrophils # Man Lymphocytes # (Manual) Monocytes # (Manual) Eosinophils # (Manual) Basophils # (Manual) PT INR Fibrinogen dRVVT Confirm Interp Factor V Activity POC ABG pH POC ABG pCO2 POC ABG pO2 ABG pO2 ABG HCO3 ABG Base Excess ABG Hemoglobin Oxyhemoglobin Sodium Potassium Chloride Carbon Dioxide BUN Creatinine Glucose POC Glucose 204 H Lactic Acid Calcium Ionized Calcium Phosphorus Magnesium Direct Bilirubin AST ALT Alkaline Phosphatase Lactate Dehydrogenase Troponin T C-Reactive Protein Total Protein Albumin Prealbumin Triglycerides Cholesterol LDL Cholesterol Direct HDL Cholesterol 25-OH Vitamin D Total PTH Intact Urine pH Urine WBC (Auto) 68.0 H Urine Creatinine 106.1 H Urine Total Protein Fluid Total Protein Vancomycin Trough Rheumatoid Factor Complement C4 Miscellaneous Test Crossmatch 09/07/16 09/07/16 09/07/16 04:50 06:19 06:39 WBC RBC Hgb Hct MCV MCH MCHC RDW Plt Count Lymph % (Auto) [place] % (Auto) Lymph # [place] # Baso # Seg Neutrophils % Seg Neuts % (Manual) Lymphocytes % (Manual) Monocytes % (Manual) Eosinophils % (Manual) Basophils % (Manual) Nucleated RBC % Seg Neutrophils # Seg Neutrophils # Man Lymphocytes # (Manual) Monocytes # (Manual) Eosinophils # (Manual) Basophils # (Manual) PT INR Fibrinogen dRVVT Confirm Interp Factor V Activity POC ABG pH 7.457 H POC ABG pCO2 32.1 L POC ABG pO2 76 L ABG pO2 ABG HCO3 ABG Base Excess ABG Hemoglobin Oxyhemoglobin Sodium 132 L Potassium Chloride 94.7 L Carbon Dioxide BUN 53 H Creatinine 2.9 H Glucose 151 H POC Glucose 149 H Lactic Acid Calcium Ionized Calcium Phosphorus Magnesium Direct Bilirubin AST ALT Alkaline Phosphatase Lactate Dehydrogenase Troponin T C-Reactive Protein Total Protein Albumin Prealbumin Triglycerides Cholesterol LDL Cholesterol Direct HDL Cholesterol 25-OH Vitamin D Total PTH Intact Urine pH Urine WBC (Auto) Urine Creatinine Urine Total Protein Fluid Total Protein Vancomycin Trough Rheumatoid Factor Complement C4 Miscellaneous Test Crossmatch 09/07/16 09/07/16 09/07/16 09:20 11:43 11:43 WBC 19.4 H RBC Hgb 8.3 L Hct 26.4 L D MCV 72 L D MCH 22 L MCHC RDW 17.9 H Plt Count Lymph % (Auto) 8.5 L [place] % (Auto) Lymph # [place] # 1.0 H Baso # Seg Neutrophils % 85.8 H Seg Neuts % (Manual) Lymphocytes % (Manual) Monocytes % (Manual) Eosinophils % (Manual) Basophils % (Manual) Nucleated RBC % Seg Neutrophils # 16.6 H Seg Neutrophils # Man Lymphocytes # (Manual) Monocytes # (Manual) Eosinophils # (Manual) Basophils # (Manual) PT INR Fibrinogen dRVVT Confirm Interp Factor V Activity POC ABG pH POC ABG pCO2 POC ABG pO2 ABG pO2 ABG HCO3 ABG Base Excess ABG Hemoglobin Oxyhemoglobin Sodium 134 L Potassium Chloride 97.2 L Carbon Dioxide 20 L BUN 58 H Creatinine 2.9 H Glucose 147 H POC Glucose Lactic Acid Calcium Ionized Calcium Phosphorus 2.40 L Magnesium 2.40 H Direct Bilirubin AST ALT Alkaline Phosphatase Lactate Dehydrogenase Troponin T C-Reactive Protein Total Protein 5.8 L Albumin 2.2 L Prealbumin Triglycerides Cholesterol LDL Cholesterol Direct HDL Cholesterol 25-OH Vitamin D Total PTH Intact Urine pH Urine WBC (Auto) Urine Creatinine Urine Total Protein Fluid Total Protein Vancomycin Trough Rheumatoid Factor Complement C4 58 H Miscellaneous Test Crossmatch 09/07/16 09/07/16 09/07/16 11:50 16:00 17:31 WBC RBC Hgb Hct MCV MCH MCHC RDW Plt Count Lymph % (Auto) [place] % (Auto) Lymph # [place] # Baso # Seg Neutrophils % Seg Neuts % (Manual) Lymphocytes % (Manual) Monocytes % (Manual) Eosinophils % (Manual) Basophils % (Manual) Nucleated RBC % Seg Neutrophils # Seg Neutrophils # Man Lymphocytes # (Manual) Monocytes # (Manual) Eosinophils # (Manual) Basophils # (Manual) PT INR Fibrinogen dRVVT Confirm Interp Factor V Activity POC ABG pH POC ABG pCO2 POC ABG pO2 158 H ABG pO2 ABG HCO3 ABG Base Excess ABG Hemoglobin Oxyhemoglobin Sodium Potassium Chloride Carbon Dioxide BUN Creatinine Glucose POC Glucose 175 H Lactic Acid Calcium Ionized Calcium Phosphorus Magnesium Direct Bilirubin AST ALT Alkaline Phosphatase Lactate Dehydrogenase Troponin T C-Reactive Protein Total Protein Albumin Prealbumin Triglycerides Cholesterol LDL Cholesterol Direct HDL Cholesterol 25-OH Vitamin D Total PTH Intact Urine pH Urine WBC (Auto) Urine Creatinine 66.3 H Urine Total Protein Fluid Total Protein Vancomycin Trough Rheumatoid Factor Complement C4 Miscellaneous Test Crossmatch 09/07/16 09/08/16 09/08/16 23:50 05:46 06:18 WBC 17.8 H RBC 3.58 L Hgb 8.1 L Hct 25.5 L MCV 71 L MCH 23 L MCHC RDW 18.4 H Plt Count Lymph % (Auto) [place] % (Auto) Lymph # [place] # Baso # Seg Neutrophils % Seg Neuts % (Manual) 92.0 H Lymphocytes % (Manual) 6.0 L Monocytes % (Manual) Eosinophils % (Manual) Basophils % (Manual) Nucleated RBC % Seg Neutrophils # Seg Neutrophils # Man 16.4 H Lymphocytes # (Manual) 1.1 L Monocytes # (Manual) Eosinophils # (Manual) Basophils # (Manual) PT INR Fibrinogen dRVVT Confirm Interp Factor V Activity POC ABG pH POC ABG pCO2 34.3 L POC ABG pO2 71 L ABG pO2 ABG HCO3 ABG Base Excess ABG Hemoglobin Oxyhemoglobin Sodium Potassium Chloride Carbon Dioxide BUN Creatinine Glucose POC Glucose 216 H Lactic Acid Calcium Ionized Calcium Phosphorus Magnesium Direct Bilirubin AST ALT Alkaline Phosphatase Lactate Dehydrogenase Troponin T C-Reactive Protein Total Protein Albumin Prealbumin Triglycerides Cholesterol LDL Cholesterol Direct HDL Cholesterol 25-OH Vitamin D Total PTH Intact Urine pH Urine WBC (Auto) Urine Creatinine Urine Total Protein Fluid Total Protein Vancomycin Trough Rheumatoid Factor Complement C4 Miscellaneous Test Crossmatch 09/08/16 09/08/16 09/08/16 06:18 06:51 10:55 WBC RBC Hgb Hct MCV MCH MCHC RDW Plt Count Lymph % (Auto) [place] % (Auto) Lymph # [place] # Baso # Seg Neutrophils % Seg Neuts % (Manual) Lymphocytes % (Manual) Monocytes % (Manual) Eosinophils % (Manual) Basophils % (Manual) Nucleated RBC % Seg Neutrophils # Seg Neutrophils # Man Lymphocytes # (Manual) Monocytes # (Manual) Eosinophils # (Manual) Basophils # (Manual) PT INR Fibrinogen dRVVT Confirm Interp Factor V Activity POC ABG pH POC ABG pCO2 POC ABG pO2 ABG pO2 ABG HCO3 ABG Base Excess ABG Hemoglobin Oxyhemoglobin Sodium 133 L Potassium Chloride 96.9 L Carbon Dioxide 20 L BUN 63 H Creatinine 2.7 H Glucose 195 H POC Glucose 204 H 169 H Lactic Acid Calcium Ionized Calcium Phosphorus Magnesium Direct Bilirubin AST ALT Alkaline Phosphatase Lactate Dehydrogenase Troponin T C-Reactive Protein Total Protein Albumin Prealbumin Triglycerides Cholesterol LDL Cholesterol Direct HDL Cholesterol 25-OH Vitamin D Total PTH Intact Urine pH Urine WBC (Auto) Urine Creatinine Urine Total Protein Fluid Total Protein Vancomycin Trough Rheumatoid Factor Complement C4 Miscellaneous Test Crossmatch 09/08/16 09/08/16 09/08/16 11:48 11:48 11:48 WBC RBC Hgb Hct MCV MCH MCHC RDW Plt Count Lymph % (Auto) [place] % (Auto) Lymph # [place] # Baso # Seg Neutrophils % Seg Neuts % (Manual) Lymphocytes % (Manual) Monocytes % (Manual) Eosinophils % (Manual) Basophils % (Manual) Nucleated RBC % Seg Neutrophils # Seg Neutrophils # Man Lymphocytes # (Manual) Monocytes # (Manual) Eosinophils # (Manual) Basophils # (Manual) PT INR Fibrinogen 750 H dRVVT Confirm Interp Factor V Activity POC ABG pH POC ABG pCO2 POC ABG pO2 ABG pO2 ABG HCO3 ABG Base Excess ABG Hemoglobin Oxyhemoglobin Sodium Potassium Chloride Carbon Dioxide BUN Creatinine Glucose POC Glucose Lactic Acid Calcium Ionized Calcium Phosphorus Magnesium Direct Bilirubin AST ALT Alkaline Phosphatase Lactate Dehydrogenase Troponin T C-Reactive Protein 15.70 H Total Protein Albumin Prealbumin Triglycerides Cholesterol LDL Cholesterol Direct HDL Cholesterol 25-OH Vitamin D Total PTH Intact Urine pH Urine WBC (Auto) Urine Creatinine Urine Total Protein Fluid Total Protein Vancomycin Trough Rheumatoid Factor 24 H Complement C4 Miscellaneous Test Crossmatch 09/08/16 09/08/16 09/09/16 15:35 18:25 00:24 WBC RBC Hgb Hct MCV MCH MCHC RDW Plt Count Lymph % (Auto) [place] % (Auto) Lymph # [place] # Baso # Seg Neutrophils % Seg Neuts % (Manual) Lymphocytes % (Manual) Monocytes % (Manual) Eosinophils % (Manual) Basophils % (Manual) Nucleated RBC % Seg Neutrophils # Seg Neutrophils # Man Lymphocytes # (Manual) Monocytes # (Manual) Eosinophils # (Manual) Basophils # (Manual) PT INR Fibrinogen dRVVT Confirm Interp Factor V Activity 182 H POC ABG pH POC ABG pCO2 POC ABG pO2 ABG pO2 ABG HCO3 ABG Base Excess ABG Hemoglobin Oxyhemoglobin Sodium Potassium Chloride Carbon Dioxide BUN Creatinine Glucose POC Glucose 184 H 216 H Lactic Acid Calcium Ionized Calcium Phosphorus Magnesium Direct Bilirubin AST ALT Alkaline Phosphatase Lactate Dehydrogenase Troponin T C-Reactive Protein Total Protein Albumin Prealbumin Triglycerides Cholesterol LDL Cholesterol Direct HDL Cholesterol 25-OH Vitamin D Total PTH Intact Urine pH Urine WBC (Auto) Urine Creatinine Urine Total Protein Fluid Total Protein Vancomycin Trough Rheumatoid Factor Complement C4 Miscellaneous Test Crossmatch 09/09/16 09/09/16 09/09/16 03:00 03:00 04:04 WBC 27.9 H RBC Hgb 8.7 L Hct 28.1 L MCV 72 L MCH 22 L MCHC RDW 18.4 H Plt Count 485 H Lymph % (Auto) [place] % (Auto) Lymph # [place] # Baso # Seg Neutrophils % Seg Neuts % (Manual) 77.0 H Lymphocytes % (Manual) 9.0 L Monocytes % (Manual) Eosinophils % (Manual) Basophils % (Manual) Nucleated RBC % Seg Neutrophils # Seg Neutrophils # Man 21.5 H Lymphocytes # (Manual) Monocytes # (Manual) 2.0 H Eosinophils # (Manual) Basophils # (Manual) PT INR Fibrinogen dRVVT Confirm Interp Factor V Activity POC ABG pH POC ABG pCO2 POC ABG pO2 121 H ABG pO2 ABG HCO3 ABG Base Excess ABG Hemoglobin Oxyhemoglobin Sodium 135 L Potassium Chloride 96.3 L Carbon Dioxide 21 L BUN 83 H Creatinine 3.0 H Glucose 135 H POC Glucose Lactic Acid Calcium Ionized Calcium Phosphorus Magnesium Direct Bilirubin AST ALT Alkaline Phosphatase Lactate Dehydrogenase Troponin T C-Reactive Protein Total Protein Albumin Prealbumin Triglycerides Cholesterol LDL Cholesterol Direct HDL Cholesterol 25-OH Vitamin D Total PTH Intact Urine pH Urine WBC (Auto) Urine Creatinine Urine Total Protein Fluid Total Protein Vancomycin Trough Rheumatoid Factor Complement C4 Miscellaneous Test Crossmatch 09/09/16 09/09/16 09/09/16 05:41 11:55 14:13 WBC RBC Hgb Hct MCV MCH MCHC RDW Plt Count Lymph % (Auto) [place] % (Auto) Lymph # [place] # Baso # Seg Neutrophils % Seg Neuts % (Manual) Lymphocytes % (Manual) Monocytes % (Manual) Eosinophils % (Manual) Basophils % (Manual) Nucleated RBC % Seg Neutrophils # Seg Neutrophils # Man Lymphocytes # (Manual) Monocytes # (Manual) Eosinophils # (Manual) Basophils # (Manual) PT INR Fibrinogen dRVVT Confirm Interp Factor V Activity POC ABG pH POC ABG pCO2 POC ABG pO2 ABG pO2 ABG HCO3 ABG Base Excess ABG Hemoglobin Oxyhemoglobin Sodium Potassium Chloride Carbon Dioxide BUN Creatinine Glucose POC Glucose 155 H 186 H Lactic Acid Calcium Ionized Calcium Phosphorus Magnesium Direct Bilirubin AST ALT Alkaline Phosphatase Lactate Dehydrogenase Troponin T C-Reactive Protein Total Protein Albumin Prealbumin Triglycerides Cholesterol LDL Cholesterol Direct HDL Cholesterol 25-OH Vitamin D Total PTH Intact Urine pH Urine WBC (Auto) 25.0 H Urine Creatinine Urine Total Protein Fluid Total Protein Vancomycin Trough Rheumatoid Factor Complement C4 Miscellaneous Test Crossmatch 09/09/16 09/09/16 09/10/16 17:33 23:13 05:09 WBC RBC Hgb Hct MCV MCH MCHC RDW Plt Count Lymph % (Auto) [place] % (Auto) Lymph # [place] # Baso # Seg Neutrophils % Seg Neuts % (Manual) Lymphocytes % (Manual) Monocytes % (Manual) Eosinophils % (Manual) Basophils % (Manual) Nucleated RBC % Seg Neutrophils # Seg Neutrophils # Man Lymphocytes # (Manual) Monocytes # (Manual) Eosinophils # (Manual) Basophils # (Manual) PT INR Fibrinogen dRVVT Confirm Interp Factor V Activity POC ABG pH POC ABG pCO2 POC ABG pO2 74 L ABG pO2 ABG HCO3 ABG Base Excess ABG Hemoglobin Oxyhemoglobin Sodium Potassium Chloride Carbon Dioxide BUN Creatinine Glucose POC Glucose 211 H 215 H Lactic Acid Calcium Ionized Calcium Phosphorus Magnesium Direct Bilirubin AST ALT Alkaline Phosphatase Lactate Dehydrogenase Troponin T C-Reactive Protein Total Protein Albumin Prealbumin Triglycerides Cholesterol LDL Cholesterol Direct HDL Cholesterol 25-OH Vitamin D Total PTH Intact Urine pH Urine WBC (Auto) Urine Creatinine Urine Total Protein Fluid Total Protein Vancomycin Trough Rheumatoid Factor Complement C4 Miscellaneous Test Crossmatch 09/10/16 09/10/16 09/10/16 05:17 05:17 11:31 WBC 15.8 H RBC 3.25 L Hgb 7.3 L Hct 22.9 L MCV 71 L MCH 23 L MCHC RDW 18.4 H Plt Count Lymph % (Auto) [place] % (Auto) Lymph # [place] # Baso # Seg Neutrophils % Seg Neuts % (Manual) 91.0 H Lymphocytes % (Manual) 4.0 L Monocytes % (Manual) Eosinophils % (Manual) Basophils % (Manual) Nucleated RBC % Seg Neutrophils # Seg Neutrophils # Man 14.4 H Lymphocytes # (Manual) 0.6 L Monocytes # (Manual) Eosinophils # (Manual) Basophils # (Manual) PT INR Fibrinogen dRVVT Confirm Interp Factor V Activity POC ABG pH POC ABG pCO2 POC ABG pO2 ABG pO2 ABG HCO3 ABG Base Excess ABG Hemoglobin Oxyhemoglobin Sodium Potassium Chloride Carbon Dioxide 21 L BUN 93 H Creatinine 2.9 H Glucose 146 H POC Glucose 188 H Lactic Acid Calcium 8.1 L Ionized Calcium Phosphorus Magnesium Direct Bilirubin AST ALT Alkaline Phosphatase Lactate Dehydrogenase Troponin T C-Reactive Protein Total Protein Albumin Prealbumin Triglycerides Cholesterol LDL Cholesterol Direct HDL Cholesterol 25-OH Vitamin D Total PTH Intact Urine pH Urine WBC (Auto) Urine Creatinine Urine Total Protein Fluid Total Protein Vancomycin Trough Rheumatoid Factor Complement C4 Miscellaneous Test Crossmatch 09/10/16 09/10/16 09/10/16 13:17 17:20 23:32 WBC RBC Hgb Hct MCV MCH MCHC RDW Plt Count Lymph % (Auto) [place] % (Auto) Lymph # [place] # Baso # Seg Neutrophils % Seg Neuts % (Manual) Lymphocytes % (Manual) Monocytes % (Manual) Eosinophils % (Manual) Basophils % (Manual) Nucleated RBC % Seg Neutrophils # Seg Neutrophils # Man Lymphocytes # (Manual) Monocytes # (Manual) Eosinophils # (Manual) Basophils # (Manual) PT INR Fibrinogen dRVVT Confirm Interp Factor V Activity POC ABG pH POC ABG pCO2 POC ABG pO2 ABG pO2 ABG HCO3 ABG Base Excess ABG Hemoglobin Oxyhemoglobin Sodium Potassium Chloride Carbon Dioxide BUN Creatinine Glucose POC Glucose 199 H 186 H Lactic Acid Calcium Ionized Calcium Phosphorus Magnesium Direct Bilirubin AST ALT Alkaline Phosphatase Lactate Dehydrogenase Troponin T C-Reactive Protein Total Protein Albumin Prealbumin Triglycerides Cholesterol LDL Cholesterol Direct HDL Cholesterol 25-OH Vitamin D Total PTH Intact Urine pH Urine WBC (Auto) Urine Creatinine Urine Total Protein Fluid Total Protein Vancomycin Trough Rheumatoid Factor Complement C4 Miscellaneous Test Crossmatch See Detail 09/11/16 09/11/16 09/11/16 05:10 05:10 05:17 WBC 28.4 H RBC Hgb 9.2 L Hct 29.3 L D MCV 73 L MCH 23 L MCHC RDW 18.9 H Plt Count 452 H Lymph % (Auto) [place] % (Auto) Lymph # [place] # Baso # Seg Neutrophils % Seg Neuts % (Manual) 89.5 H Lymphocytes % (Manual) 2.0 L Monocytes % (Manual) Eosinophils % (Manual) Basophils % (Manual) Nucleated RBC % Seg Neutrophils # Seg Neutrophils # Man 25.4 H Lymphocytes # (Manual) 0.6 L Monocytes # (Manual) 1.3 H Eosinophils # (Manual) Basophils # (Manual) PT INR Fibrinogen dRVVT Confirm Interp Factor V Activity POC ABG pH POC ABG pCO2 POC ABG pO2 ABG pO2 ABG HCO3 ABG Base Excess ABG Hemoglobin Oxyhemoglobin Sodium 136 L Potassium Chloride Carbon Dioxide 18 L BUN 107 H Creatinine 2.6 H Glucose 187 H POC Glucose 230 H Lactic Acid Calcium 8.3 L Ionized Calcium Phosphorus Magnesium Direct Bilirubin AST ALT Alkaline Phosphatase Lactate Dehydrogenase Troponin T C-Reactive Protein Total Protein Albumin Prealbumin Triglycerides Cholesterol LDL Cholesterol Direct HDL Cholesterol 25-OH Vitamin D Total PTH Intact Urine pH Urine WBC (Auto) Urine Creatinine Urine Total Protein Fluid Total Protein Vancomycin Trough Rheumatoid Factor Complement C4 Miscellaneous Test Crossmatch 09/11/16 09/11/16 09/11/16 05:55 12:02 17:32 WBC RBC Hgb Hct MCV MCH MCHC RDW Plt Count Lymph % (Auto) [place] % (Auto) Lymph # [place] # Baso # Seg Neutrophils % Seg Neuts % (Manual) Lymphocytes % (Manual) Monocytes % (Manual) Eosinophils % (Manual) Basophils % (Manual) Nucleated RBC % Seg Neutrophils # Seg Neutrophils # Man Lymphocytes # (Manual) Monocytes # (Manual) Eosinophils # (Manual) Basophils # (Manual) PT INR Fibrinogen dRVVT Confirm Interp Factor V Activity POC ABG pH POC ABG pCO2 33.8 L POC ABG pO2 ABG pO2 ABG HCO3 ABG Base Excess ABG Hemoglobin Oxyhemoglobin Sodium Potassium Chloride Carbon Dioxide BUN Creatinine Glucose POC Glucose 191 H 239 H Lactic Acid Calcium Ionized Calcium Phosphorus Magnesium Direct Bilirubin AST ALT Alkaline Phosphatase Lactate Dehydrogenase Troponin T C-Reactive Protein Total Protein Albumin Prealbumin Triglycerides Cholesterol LDL Cholesterol Direct HDL Cholesterol 25-OH Vitamin D Total PTH Intact Urine pH Urine WBC (Auto) Urine Creatinine Urine Total Protein Fluid Total Protein Vancomycin Trough Rheumatoid Factor Complement C4 Miscellaneous Test Crossmatch 09/11/16 09/12/16 09/12/16 23:52 05:09 05:32 WBC RBC Hgb Hct MCV MCH MCHC RDW Plt Count Lymph % (Auto) [place] % (Auto) Lymph # [place] # Baso # Seg Neutrophils % Seg Neuts % (Manual) Lymphocytes % (Manual) Monocytes % (Manual) Eosinophils % (Manual) Basophils % (Manual) Nucleated RBC % Seg Neutrophils # Seg Neutrophils # Man Lymphocytes # (Manual) Monocytes # (Manual) Eosinophils # (Manual) Basophils # (Manual) PT INR Fibrinogen dRVVT Confirm Interp Factor V Activity POC ABG pH POC ABG pCO2 34.6 L POC ABG pO2 ABG pO2 ABG HCO3 ABG Base Excess ABG Hemoglobin Oxyhemoglobin Sodium Potassium Chloride Carbon Dioxide BUN Creatinine Glucose POC Glucose 265 H 184 H Lactic Acid Calcium Ionized Calcium Phosphorus Magnesium Direct Bilirubin AST ALT Alkaline Phosphatase Lactate Dehydrogenase Troponin T C-Reactive Protein Total Protein Albumin Prealbumin Triglycerides Cholesterol LDL Cholesterol Direct HDL Cholesterol 25-OH Vitamin D Total PTH Intact Urine pH Urine WBC (Auto) Urine Creatinine Urine Total Protein Fluid Total Protein Vancomycin Trough Rheumatoid Factor Complement C4 Miscellaneous Test Crossmatch 09/12/16 09/12/16 09/12/16 06:45 06:45 07:22 WBC 31.7 H RBC 3.54 L Hgb 8.3 L Hct 25.9 L MCV 73 L MCH 23 L MCHC RDW 18.9 H Plt Count Lymph % (Auto) [place] % (Auto) Lymph # [place] # Baso # Seg Neutrophils % Seg Neuts % (Manual) 88.5 H Lymphocytes % (Manual) 4.5 L Monocytes % (Manual) Eosinophils % (Manual) Basophils % (Manual) Nucleated RBC % Seg Neutrophils # Seg Neutrophils # Man 28.1 H Lymphocytes # (Manual) Monocytes # (Manual) 1.0 H Eosinophils # (Manual) Basophils # (Manual) PT INR Fibrinogen dRVVT Confirm Interp Factor V Activity POC ABG pH POC ABG pCO2 POC ABG pO2 ABG pO2 ABG HCO3 ABG Base Excess ABG Hemoglobin Oxyhemoglobin Sodium Potassium Chloride Carbon Dioxide 20 L BUN 115 H Creatinine 2.7 H Glucose 165 H POC Glucose Lactic Acid Calcium 8.0 L Ionized Calcium Phosphorus Magnesium Direct Bilirubin AST ALT Alkaline Phosphatase Lactate Dehydrogenase Troponin T C-Reactive Protein Total Protein Albumin Prealbumin Triglycerides 217 H Cholesterol LDL Cholesterol Direct HDL Cholesterol 25-OH Vitamin D Total PTH Intact Urine pH Urine WBC (Auto) Urine Creatinine Urine Total Protein Fluid Total Protein Vancomycin Trough Rheumatoid Factor Complement C4 Miscellaneous Test Crossmatch 09/12/16 09/12/16 09/12/16 07:22 09:59 12:21 WBC RBC Hgb Hct MCV MCH MCHC RDW Plt Count Lymph % (Auto) [place] % (Auto) Lymph # [place] # Baso # Seg Neutrophils % Seg Neuts % (Manual) Lymphocytes % (Manual) Monocytes % (Manual) Eosinophils % (Manual) Basophils % (Manual) Nucleated RBC % Seg Neutrophils # Seg Neutrophils # Man Lymphocytes # (Manual) Monocytes # (Manual) Eosinophils # (Manual) Basophils # (Manual) PT INR Fibrinogen dRVVT Confirm Interp Positive H Factor V Activity POC ABG pH POC ABG pCO2 POC ABG pO2 ABG pO2 ABG HCO3 ABG Base Excess ABG Hemoglobin Oxyhemoglobin Sodium Potassium Chloride Carbon Dioxide BUN Creatinine Glucose POC Glucose 224 H Lactic Acid Calcium Ionized Calcium Phosphorus Magnesium Direct Bilirubin AST ALT Alkaline Phosphatase Lactate Dehydrogenase Troponin T C-Reactive Protein 1.70 H Total Protein Albumin Prealbumin Triglycerides Cholesterol LDL Cholesterol Direct HDL Cholesterol 25-OH Vitamin D Total PTH Intact Urine pH Urine WBC (Auto) Urine Creatinine Urine Total Protein Fluid Total Protein Vancomycin Trough Rheumatoid Factor Complement C4 Miscellaneous Test Crossmatch 09/12/16 09/12/16 09/13/16 16:51 23:28 04:00 WBC 45.0 H* RBC Hgb 9.4 L Hct MCV 75 L MCH 23 L MCHC RDW 19.0 H Plt Count 470 H Lymph % (Auto) [place] % (Auto) Lymph # [place] # Baso # Seg Neutrophils % Seg Neuts % (Manual) 89.0 H Lymphocytes % (Manual) 5.0 L Monocytes % (Manual) Eosinophils % (Manual) Basophils % (Manual) Nucleated RBC % Seg Neutrophils # Seg Neutrophils # Man 40.1 H Lymphocytes # (Manual) Monocytes # (Manual) Eosinophils # (Manual) Basophils # (Manual) PT INR Fibrinogen dRVVT Confirm Interp Factor V Activity POC ABG pH POC ABG pCO2 POC ABG pO2 ABG pO2 ABG HCO3 ABG Base Excess ABG Hemoglobin Oxyhemoglobin Sodium Potassium Chloride Carbon Dioxide BUN Creatinine Glucose POC Glucose 169 H 150 H Lactic Acid Calcium Ionized Calcium Phosphorus Magnesium Direct Bilirubin AST ALT Alkaline Phosphatase Lactate Dehydrogenase Troponin T C-Reactive Protein Total Protein Albumin Prealbumin Triglycerides Cholesterol LDL Cholesterol Direct HDL Cholesterol 25-OH Vitamin D Total PTH Intact Urine pH Urine WBC (Auto) Urine Creatinine Urine Total Protein Fluid Total Protein Vancomycin Trough Rheumatoid Factor Complement C4 Miscellaneous Test Crossmatch 09/13/16 09/13/16 09/13/16 04:00 11:26 17:31 WBC RBC Hgb Hct MCV MCH MCHC RDW Plt Count Lymph % (Auto) [place] % (Auto) Lymph # [place] # Baso # Seg Neutrophils % Seg Neuts % (Manual) Lymphocytes % (Manual) Monocytes % (Manual) Eosinophils % (Manual) Basophils % (Manual) Nucleated RBC % Seg Neutrophils # Seg Neutrophils # Man Lymphocytes # (Manual) Monocytes # (Manual) Eosinophils # (Manual) Basophils # (Manual) PT INR Fibrinogen dRVVT Confirm Interp Factor V Activity POC ABG pH POC ABG pCO2 POC ABG pO2 ABG pO2 ABG HCO3 ABG Base Excess ABG Hemoglobin Oxyhemoglobin Sodium Potassium Chloride Carbon Dioxide 20 L BUN 116 H Creatinine 3.0 H Glucose 172 H POC Glucose 140 H 183 H Lactic Acid Calcium Ionized Calcium Phosphorus Magnesium Direct Bilirubin AST ALT Alkaline Phosphatase Lactate Dehydrogenase Troponin T C-Reactive Protein Total Protein 6.2 L Albumin 2.9 L Prealbumin Triglycerides Cholesterol LDL Cholesterol Direct HDL Cholesterol 25-OH Vitamin D Total PTH Intact Urine pH Urine WBC (Auto) Urine Creatinine Urine Total Protein Fluid Total Protein Vancomycin Trough Rheumatoid Factor Complement C4 Miscellaneous Test Crossmatch 09/13/16 09/14/16 09/14/16 23:23 04:06 04:07 WBC 29.4 H RBC Hgb 8.9 L Hct 27.3 L MCV 75 L MCH 24 L MCHC RDW 19.1 H Plt Count Lymph % (Auto) [place] % (Auto) Lymph # [place] # Baso # Seg Neutrophils % Seg Neuts % (Manual) 84.0 H Lymphocytes % (Manual) 6.0 L Monocytes % (Manual) 9.0 H Eosinophils % (Manual) Basophils % (Manual) Nucleated RBC % Seg Neutrophils # Seg Neutrophils # Man 24.7 H Lymphocytes # (Manual) Monocytes # (Manual) 2.6 H Eosinophils # (Manual) Basophils # (Manual) PT INR Fibrinogen dRVVT Confirm Interp Factor V Activity POC ABG pH 7.342 L POC ABG pCO2 POC ABG pO2 116 H ABG pO2 ABG HCO3 ABG Base Excess ABG Hemoglobin Oxyhemoglobin Sodium Potassium Chloride Carbon Dioxide BUN Creatinine Glucose POC Glucose 154 H Lactic Acid Calcium Ionized Calcium Phosphorus Magnesium Direct Bilirubin AST ALT Alkaline Phosphatase Lactate Dehydrogenase Troponin T C-Reactive Protein Total Protein Albumin Prealbumin Triglycerides Cholesterol LDL Cholesterol Direct HDL Cholesterol 25-OH Vitamin D Total PTH Intact Urine pH Urine WBC (Auto) Urine Creatinine Urine Total Protein Fluid Total Protein Vancomycin Trough Rheumatoid Factor Complement C4 Miscellaneous Test Crossmatch 09/14/16 09/14/16 09/14/16 04:07 05:29 12:19 WBC RBC Hgb Hct MCV MCH MCHC RDW Plt Count Lymph % (Auto) [place] % (Auto) Lymph # [place] # Baso # Seg Neutrophils % Seg Neuts % (Manual) Lymphocytes % (Manual) Monocytes % (Manual) Eosinophils % (Manual) Basophils % (Manual) Nucleated RBC % Seg Neutrophils # Seg Neutrophils # Man Lymphocytes # (Manual) Monocytes # (Manual) Eosinophils # (Manual) Basophils # (Manual) PT INR Fibrinogen dRVVT Confirm Interp Factor V Activity POC ABG pH POC ABG pCO2 POC ABG pO2 ABG pO2 ABG HCO3 ABG Base Excess ABG Hemoglobin Oxyhemoglobin Sodium 136 L Potassium Chloride Carbon Dioxide 18 L BUN 121 H Creatinine 2.8 H Glucose 214 H POC Glucose 239 H 181 H Lactic Acid Calcium Ionized Calcium Phosphorus Magnesium Direct Bilirubin AST ALT Alkaline Phosphatase Lactate Dehydrogenase Troponin T C-Reactive Protein Total Protein Albumin Prealbumin Triglycerides Cholesterol LDL Cholesterol Direct HDL Cholesterol 25-OH Vitamin D Total PTH Intact Urine pH Urine WBC (Auto) Urine Creatinine Urine Total Protein Fluid Total Protein Vancomycin Trough Rheumatoid Factor Complement C4 Miscellaneous Test Crossmatch 09/14/16 09/14/16 09/15/16 18:12 23:37 05:00 WBC 26.1 H RBC 3.05 L Hgb 7.2 L Hct 22.9 L MCV 75 L MCH 24 L MCHC RDW 19.0 H Plt Count Lymph % (Auto) [place] % (Auto) Lymph # [place] # Baso # Seg Neutrophils % Seg Neuts % (Manual) Lymphocytes % (Manual) Monocytes % (Manual) Eosinophils % (Manual) Basophils % (Manual) Nucleated RBC % Seg Neutrophils # Seg Neutrophils # Man Lymphocytes # (Manual) Monocytes # (Manual) Eosinophils # (Manual) Basophils # (Manual) PT INR Fibrinogen dRVVT Confirm Interp Factor V Activity POC ABG pH POC ABG pCO2 POC ABG pO2 ABG pO2 ABG HCO3 ABG Base Excess ABG Hemoglobin Oxyhemoglobin Sodium Potassium Chloride Carbon Dioxide BUN Creatinine Glucose POC Glucose 266 H 154 H Lactic Acid Calcium Ionized Calcium Phosphorus Magnesium Direct Bilirubin AST ALT Alkaline Phosphatase Lactate Dehydrogenase Troponin T C-Reactive Protein Total Protein Albumin Prealbumin Triglycerides Cholesterol LDL Cholesterol Direct HDL Cholesterol 25-OH Vitamin D Total PTH Intact Urine pH Urine WBC (Auto) Urine Creatinine Urine Total Protein Fluid Total Protein Vancomycin Trough Rheumatoid Factor Complement C4 Miscellaneous Test Crossmatch 09/15/16 09/15/16 09/15/16 05:00 05:17 12:45 WBC RBC Hgb Hct MCV MCH MCHC RDW Plt Count Lymph % (Auto) [place] % (Auto) Lymph # [place] # Baso # Seg Neutrophils % Seg Neuts % (Manual) Lymphocytes % (Manual) Monocytes % (Manual) Eosinophils % (Manual) Basophils % (Manual) Nucleated RBC % Seg Neutrophils # Seg Neutrophils # Man Lymphocytes # (Manual) Monocytes # (Manual) Eosinophils # (Manual) Basophils # (Manual) PT INR Fibrinogen dRVVT Confirm Interp Factor V Activity POC ABG pH POC ABG pCO2 POC ABG pO2 ABG pO2 ABG HCO3 ABG Base Excess ABG Hemoglobin Oxyhemoglobin Sodium Potassium 5.2 H Chloride Carbon Dioxide 18 L BUN 139 H Creatinine 3.7 H Glucose 227 H POC Glucose 226 H 244 H Lactic Acid Calcium 8.3 L Ionized Calcium Phosphorus Magnesium Direct Bilirubin AST ALT Alkaline Phosphatase Lactate Dehydrogenase Troponin T C-Reactive Protein Total Protein Albumin Prealbumin Triglycerides Cholesterol LDL Cholesterol Direct HDL Cholesterol 25-OH Vitamin D Total PTH Intact Urine pH Urine WBC (Auto) Urine Creatinine Urine Total Protein Fluid Total Protein Vancomycin Trough Rheumatoid Factor Complement C4 Miscellaneous Test Crossmatch 09/15/16 09/15/16 09/15/16 14:32 17:33 23:35 WBC RBC Hgb Hct MCV MCH MCHC RDW Plt Count Lymph % (Auto) [place] % (Auto) Lymph # [place] # Baso # Seg Neutrophils % Seg Neuts % (Manual) Lymphocytes % (Manual) Monocytes % (Manual) Eosinophils % (Manual) Basophils % (Manual) Nucleated RBC % Seg Neutrophils # Seg Neutrophils # Man Lymphocytes # (Manual) Monocytes # (Manual) Eosinophils # (Manual) Basophils # (Manual) PT INR Fibrinogen dRVVT Confirm Interp Factor V Activity POC ABG pH POC ABG pCO2 27.7 L POC ABG pO2 120 H ABG pO2 ABG HCO3 ABG Base Excess ABG Hemoglobin Oxyhemoglobin Sodium Potassium Chloride Carbon Dioxide BUN Creatinine Glucose POC Glucose 232 H 167 H Lactic Acid Calcium Ionized Calcium Phosphorus Magnesium Direct Bilirubin AST ALT Alkaline Phosphatase Lactate Dehydrogenase Troponin T C-Reactive Protein Total Protein Albumin Prealbumin Triglycerides Cholesterol LDL Cholesterol Direct HDL Cholesterol 25-OH Vitamin D Total PTH Intact Urine pH Urine WBC (Auto) Urine Creatinine Urine Total Protein Fluid Total Protein Vancomycin Trough Rheumatoid Factor Complement C4 Miscellaneous Test Crossmatch 09/16/16 09/16/16 09/16/16 03:58 10:27 10:27 WBC 19.0 H RBC 2.77 L Hgb 6.5 L Hct 20.9 L MCV 76 L MCH 23 L MCHC RDW 19.3 H Plt Count Lymph % (Auto) 11.0 L [place] % (Auto) Lymph # [place] # 1.1 H Baso # Seg Neutrophils % 82.5 H Seg Neuts % (Manual) Lymphocytes % (Manual) Monocytes % (Manual) Eosinophils % (Manual) Basophils % (Manual) Nucleated RBC % Seg Neutrophils # 15.7 H Seg Neutrophils # Man Lymphocytes # (Manual) Monocytes # (Manual) Eosinophils # (Manual) Basophils # (Manual) PT INR Fibrinogen dRVVT Confirm Interp Factor V Activity POC ABG pH POC ABG pCO2 POC ABG pO2 ABG pO2 ABG HCO3 ABG Base Excess ABG Hemoglobin Oxyhemoglobin Sodium Potassium Chloride 109.3 H Carbon Dioxide 18 L BUN 139 H Creatinine 4.1 H Glucose 144 H POC Glucose 146 H Lactic Acid Calcium 8.1 L Ionized Calcium Phosphorus Magnesium Direct Bilirubin AST ALT Alkaline Phosphatase Lactate Dehydrogenase Troponin T C-Reactive Protein Total Protein Albumin Prealbumin Triglycerides Cholesterol LDL Cholesterol Direct HDL Cholesterol 25-OH Vitamin D Total PTH Intact Urine pH Urine WBC (Auto) Urine Creatinine Urine Total Protein Fluid Total Protein Vancomycin Trough Rheumatoid Factor Complement C4 Miscellaneous Test Crossmatch 09/16/16 09/16/16 09/16/16 12:04 12:10 13:55 WBC RBC Hgb Hct MCV MCH MCHC RDW Plt Count Lymph % (Auto) [place] % (Auto) Lymph # [place] # Baso # Seg Neutrophils % Seg Neuts % (Manual) Lymphocytes % (Manual) Monocytes % (Manual) Eosinophils % (Manual) Basophils % (Manual) Nucleated RBC % Seg Neutrophils # Seg Neutrophils # Man Lymphocytes # (Manual) Monocytes # (Manual) Eosinophils # (Manual) Basophils # (Manual) PT INR Fibrinogen dRVVT Confirm Interp Factor V Activity POC ABG pH POC ABG pCO2 32.9 L POC ABG pO2 ABG pO2 ABG HCO3 ABG Base Excess ABG Hemoglobin Oxyhemoglobin Sodium Potassium Chloride Carbon Dioxide BUN Creatinine Glucose POC Glucose 185 H Lactic Acid Calcium Ionized Calcium Phosphorus Magnesium Direct Bilirubin AST ALT Alkaline Phosphatase Lactate Dehydrogenase Troponin T C-Reactive Protein Total Protein Albumin Prealbumin Triglycerides Cholesterol LDL Cholesterol Direct HDL Cholesterol 25-OH Vitamin D Total PTH Intact Urine pH Urine WBC (Auto) Urine Creatinine Urine Total Protein Fluid Total Protein Vancomycin Trough Rheumatoid Factor Complement C4 Miscellaneous Test Crossmatch See Detail 09/16/16 09/16/16 09/16/16 17:55 19:19 23:48 WBC RBC Hgb Hct MCV MCH MCHC RDW Plt Count Lymph % (Auto) [place] % (Auto) Lymph # [place] # Baso # Seg Neutrophils % Seg Neuts % (Manual) Lymphocytes % (Manual) Monocytes % (Manual) Eosinophils % (Manual) Basophils % (Manual) Nucleated RBC % Seg Neutrophils # Seg Neutrophils # Man Lymphocytes # (Manual) Monocytes # (Manual) Eosinophils # (Manual) Basophils # (Manual) PT INR Fibrinogen dRVVT Confirm Interp Factor V Activity POC ABG pH POC ABG pCO2 POC ABG pO2 ABG pO2 ABG HCO3 ABG Base Excess ABG Hemoglobin Oxyhemoglobin Sodium Potassium Chloride Carbon Dioxide BUN Creatinine Glucose POC Glucose 222 H 107 H Lactic Acid Calcium Ionized Calcium Phosphorus Magnesium Direct Bilirubin AST ALT Alkaline Phosphatase Lactate Dehydrogenase Troponin T C-Reactive Protein Total Protein Albumin Prealbumin Triglycerides Cholesterol LDL Cholesterol Direct HDL Cholesterol 25-OH Vitamin D Total PTH Intact Urine pH Urine WBC (Auto) Urine Creatinine 47.4 H Urine Total Protein 16 H Fluid Total Protein Vancomycin Trough Rheumatoid Factor Complement C4 Miscellaneous Test Crossmatch 09/17/16 09/17/16 09/17/16 03:45 03:45 04:55 WBC 19.6 H RBC 3.41 L Hgb 8.5 L Hct 26.7 L MCV 78 L MCH 25 L MCHC RDW 19.9 H Plt Count Lymph % (Auto) 9.3 L [place] % (Auto) Lymph # [place] # 1.2 H Baso # Seg Neutrophils % 83.9 H Seg Neuts % (Manual) Lymphocytes % (Manual) Monocytes % (Manual) Eosinophils % (Manual) Basophils % (Manual) Nucleated RBC % Seg Neutrophils # 16.4 H Seg Neutrophils # Man Lymphocytes # (Manual) Monocytes # (Manual) Eosinophils # (Manual) Basophils # (Manual) PT INR Fibrinogen dRVVT Confirm Interp Factor V Activity POC ABG pH POC ABG pCO2 POC ABG pO2 ABG pO2 ABG HCO3 ABG Base Excess ABG Hemoglobin Oxyhemoglobin Sodium 146 H Potassium 5.1 H Chloride 110.9 H Carbon Dioxide 16 L BUN 146 H Creatinine 4.0 H Glucose 108 H POC Glucose 133 H Lactic Acid Calcium Ionized Calcium Phosphorus Magnesium 3.00 H Direct Bilirubin AST ALT Alkaline Phosphatase Lactate Dehydrogenase Troponin T C-Reactive Protein Total Protein Albumin Prealbumin Triglycerides Cholesterol LDL Cholesterol Direct HDL Cholesterol 25-OH Vitamin D Total PTH Intact Urine pH Urine WBC (Auto) Urine Creatinine Urine Total Protein Fluid Total Protein Vancomycin Trough Rheumatoid Factor Complement C4 Miscellaneous Test Crossmatch 09/17/16 09/17/16 09/17/16 11:15 17:33 23:47 WBC RBC Hgb Hct MCV MCH MCHC RDW Plt Count Lymph % (Auto) [place] % (Auto) Lymph # [place] # Baso # Seg Neutrophils % Seg Neuts % (Manual) Lymphocytes % (Manual) Monocytes % (Manual) Eosinophils % (Manual) Basophils % (Manual) Nucleated RBC % Seg Neutrophils # Seg Neutrophils # Man Lymphocytes # (Manual) Monocytes # (Manual) Eosinophils # (Manual) Basophils # (Manual) PT INR Fibrinogen dRVVT Confirm Interp Factor V Activity POC ABG pH POC ABG pCO2 POC ABG pO2 ABG pO2 ABG HCO3 ABG Base Excess ABG Hemoglobin Oxyhemoglobin Sodium Potassium Chloride Carbon Dioxide BUN Creatinine Glucose POC Glucose 176 H 246 H 148 H Lactic Acid Calcium Ionized Calcium Phosphorus Magnesium Direct Bilirubin AST ALT Alkaline Phosphatase Lactate Dehydrogenase Troponin T C-Reactive Protein Total Protein Albumin Prealbumin Triglycerides Cholesterol LDL Cholesterol Direct HDL Cholesterol 25-OH Vitamin D Total PTH Intact Urine pH Urine WBC (Auto) Urine Creatinine Urine Total Protein Fluid Total Protein Vancomycin Trough Rheumatoid Factor Complement C4 Miscellaneous Test Crossmatch 09/18/16 09/18/16 09/18/16 05:33 08:31 08:31 WBC 18.0 H RBC 3.17 L Hgb 9.0 L Hct 25.7 L MCV MCH MCHC 35 H RDW 20.4 H Plt Count Lymph % (Auto) [place] % (Auto) Lymph # [place] # Baso # Seg Neutrophils % Seg Neuts % (Manual) Lymphocytes % (Manual) Monocytes % (Manual) Eosinophils % (Manual) Basophils % (Manual) Nucleated RBC % Seg Neutrophils # Seg Neutrophils # Man Lymphocytes # (Manual) Monocytes # (Manual) Eosinophils # (Manual) Basophils # (Manual) PT INR Fibrinogen dRVVT Confirm Interp Factor V Activity POC ABG pH POC ABG pCO2 POC ABG pO2 ABG pO2 ABG HCO3 ABG Base Excess ABG Hemoglobin Oxyhemoglobin Sodium Potassium Chloride Carbon Dioxide 15 L BUN 124 H Creatinine 3.8 H Glucose POC Glucose 120 H Lactic Acid Calcium 8.1 L Ionized Calcium Phosphorus Magnesium Direct Bilirubin AST ALT Alkaline Phosphatase Lactate Dehydrogenase Troponin T C-Reactive Protein Total Protein Albumin Prealbumin Triglycerides Cholesterol LDL Cholesterol Direct HDL Cholesterol 25-OH Vitamin D Total PTH Intact Urine pH Urine WBC (Auto) Urine Creatinine Urine Total Protein Fluid Total Protein Vancomycin Trough Rheumatoid Factor Complement C4 Miscellaneous Test Crossmatch 09/18/16 09/18/16 09/18/16 12:03 15:34 17:50 WBC RBC Hgb Hct MCV MCH MCHC RDW Plt Count Lymph % (Auto) [place] % (Auto) Lymph # [place] # Baso # Seg Neutrophils % Seg Neuts % (Manual) Lymphocytes % (Manual) Monocytes % (Manual) Eosinophils % (Manual) Basophils % (Manual) Nucleated RBC % Seg Neutrophils # Seg Neutrophils # Man Lymphocytes # (Manual) Monocytes # (Manual) Eosinophils # (Manual) Basophils # (Manual) PT INR Fibrinogen dRVVT Confirm Interp Factor V Activity POC ABG pH POC ABG pCO2 25.7 L POC ABG pO2 66 L ABG pO2 ABG HCO3 ABG Base Excess ABG Hemoglobin Oxyhemoglobin Sodium Potassium Chloride Carbon Dioxide BUN Creatinine Glucose POC Glucose 156 H 220 H Lactic Acid Calcium Ionized Calcium Phosphorus Magnesium Direct Bilirubin AST ALT Alkaline Phosphatase Lactate Dehydrogenase Troponin T C-Reactive Protein Total Protein Albumin Prealbumin Triglycerides Cholesterol LDL Cholesterol Direct HDL Cholesterol 25-OH Vitamin D Total PTH Intact Urine pH Urine WBC (Auto) Urine Creatinine Urine Total Protein Fluid Total Protein Vancomycin Trough Rheumatoid Factor Complement C4 Miscellaneous Test Crossmatch 09/19/16 09/19/16 09/19/16 06:21 09:50 09:50 WBC 17.1 H RBC 3.49 L Hgb 9.0 L Hct 28.1 L MCV MCH 26 L MCHC RDW 20.8 H Plt Count Lymph % (Auto) 11.5 L [place] % (Auto) 7.5 H Lymph # [place] # 1.3 H Baso # Seg Neutrophils % 79.8 H Seg Neuts % (Manual) Lymphocytes % (Manual) Monocytes % (Manual) Eosinophils % (Manual) Basophils % (Manual) Nucleated RBC % Seg Neutrophils # 13.7 H Seg Neutrophils # Man Lymphocytes # (Manual) Monocytes # (Manual) Eosinophils # (Manual) Basophils # (Manual) PT INR Fibrinogen dRVVT Confirm Interp Factor V Activity POC ABG pH POC ABG pCO2 POC ABG pO2 ABG pO2 ABG HCO3 ABG Base Excess ABG Hemoglobin Oxyhemoglobin Sodium Potassium Chloride 108.6 H Carbon Dioxide 15 L BUN 125 H Creatinine 4.1 H Glucose 124 H POC Glucose 119 H Lactic Acid Calcium Ionized Calcium Phosphorus Magnesium Direct Bilirubin AST ALT Alkaline Phosphatase Lactate Dehydrogenase Troponin T C-Reactive Protein Total Protein Albumin Prealbumin Triglycerides Cholesterol LDL Cholesterol Direct HDL Cholesterol 25-OH Vitamin D Total PTH Intact Urine pH Urine WBC (Auto) Urine Creatinine Urine Total Protein Fluid Total Protein Vancomycin Trough Rheumatoid Factor Complement C4 Miscellaneous Test Crossmatch 09/19/16 09/19/16 09/19/16 11:25 17:53 23:36 WBC RBC Hgb Hct MCV MCH MCHC RDW Plt Count Lymph % (Auto) [place] % (Auto) Lymph # [place] # Baso # Seg Neutrophils % Seg Neuts % (Manual) Lymphocytes % (Manual) Monocytes % (Manual) Eosinophils % (Manual) Basophils % (Manual) Nucleated RBC % Seg Neutrophils # Seg Neutrophils # Man Lymphocytes # (Manual) Monocytes # (Manual) Eosinophils # (Manual) Basophils # (Manual) PT INR Fibrinogen dRVVT Confirm Interp Factor V Activity POC ABG pH POC ABG pCO2 POC ABG pO2 ABG pO2 ABG HCO3 ABG Base Excess ABG Hemoglobin Oxyhemoglobin Sodium Potassium Chloride Carbon Dioxide BUN Creatinine Glucose POC Glucose 160 H 245 H 121 H Lactic Acid Calcium Ionized Calcium Phosphorus Magnesium Direct Bilirubin AST ALT Alkaline Phosphatase Lactate Dehydrogenase Troponin T C-Reactive Protein Total Protein Albumin Prealbumin Triglycerides Cholesterol LDL Cholesterol Direct HDL Cholesterol 25-OH Vitamin D Total PTH Intact Urine pH Urine WBC (Auto) Urine Creatinine Urine Total Protein Fluid Total Protein Vancomycin Trough Rheumatoid Factor Complement C4 Miscellaneous Test Crossmatch 09/20/16 09/20/16 09/20/16 04:10 04:10 04:10 WBC 17.0 H RBC 3.21 L Hgb 8.2 L Hct 25.5 L MCV MCH 26 L MCHC RDW 20.9 H Plt Count Lymph % (Auto) [place] % (Auto) Lymph # [place] # Baso # Seg Neutrophils % Seg Neuts % (Manual) Lymphocytes % (Manual) Monocytes % (Manual) Eosinophils % (Manual) Basophils % (Manual) Nucleated RBC % Seg Neutrophils # Seg Neutrophils # Man Lymphocytes # (Manual) Monocytes # (Manual) Eosinophils # (Manual) Basophils # (Manual) PT INR Fibrinogen dRVVT Confirm Interp Factor V Activity POC ABG pH POC ABG pCO2 POC ABG pO2 ABG pO2 ABG HCO3 ABG Base Excess ABG Hemoglobin Oxyhemoglobin Sodium Potassium Chloride 111.0 H Carbon Dioxide 16 L BUN 129 H Creatinine 3.7 H Glucose 115 H POC Glucose Lactic Acid Calcium 8.2 L Ionized Calcium Phosphorus Magnesium Direct Bilirubin AST ALT Alkaline Phosphatase Lactate Dehydrogenase Troponin T C-Reactive Protein Total Protein Albumin Prealbumin Triglycerides 243 H Cholesterol LDL Cholesterol Direct HDL Cholesterol 25-OH Vitamin D Total PTH Intact Urine pH Urine WBC (Auto) Urine Creatinine Urine Total Protein Fluid Total Protein Vancomycin Trough Rheumatoid Factor Complement C4 Miscellaneous Test Crossmatch 09/20/16 09/20/16 09/20/16 05:40 11:52 16:50 WBC RBC Hgb Hct MCV MCH MCHC RDW Plt Count Lymph % (Auto) [place] % (Auto) Lymph # [place] # Baso # Seg Neutrophils % Seg Neuts % (Manual) Lymphocytes % (Manual) Monocytes % (Manual) Eosinophils % (Manual) Basophils % (Manual) Nucleated RBC % Seg Neutrophils # Seg Neutrophils # Man Lymphocytes # (Manual) Monocytes # (Manual) Eosinophils # (Manual) Basophils # (Manual) PT INR Fibrinogen dRVVT Confirm Interp Factor V Activity POC ABG pH POC ABG pCO2 POC ABG pO2 ABG pO2 ABG HCO3 ABG Base Excess ABG Hemoglobin Oxyhemoglobin Sodium Potassium Chloride Carbon Dioxide BUN Creatinine Glucose POC Glucose 131 H 183 H 236 H Lactic Acid Calcium Ionized Calcium Phosphorus Magnesium Direct Bilirubin AST ALT Alkaline Phosphatase Lactate Dehydrogenase Troponin T C-Reactive Protein Total Protein Albumin Prealbumin Triglycerides Cholesterol LDL Cholesterol Direct HDL Cholesterol 25-OH Vitamin D Total PTH Intact Urine pH Urine WBC (Auto) Urine Creatinine Urine Total Protein Fluid Total Protein Vancomycin Trough Rheumatoid Factor Complement C4 Miscellaneous Test Crossmatch 09/20/16 09/21/16 09/21/16 23:51 03:30 04:44 WBC RBC Hgb Hct MCV MCH MCHC RDW Plt Count Lymph % (Auto) [place] % (Auto) Lymph # [place] # Baso # Seg Neutrophils % Seg Neuts % (Manual) Lymphocytes % (Manual) Monocytes % (Manual) Eosinophils % (Manual) Basophils % (Manual) Nucleated RBC % Seg Neutrophils # Seg Neutrophils # Man Lymphocytes # (Manual) Monocytes # (Manual) Eosinophils # (Manual) Basophils # (Manual) PT INR Fibrinogen dRVVT Confirm Interp Factor V Activity POC ABG pH POC ABG pCO2 POC ABG pO2 ABG pO2 ABG HCO3 ABG Base Excess ABG Hemoglobin Oxyhemoglobin Sodium Potassium Chloride Carbon Dioxide BUN Creatinine Glucose POC Glucose 114 H 141 H Lactic Acid Calcium Ionized Calcium Phosphorus Magnesium 2.70 H Direct Bilirubin AST ALT Alkaline Phosphatase Lactate Dehydrogenase Troponin T C-Reactive Protein Total Protein Albumin Prealbumin Triglycerides Cholesterol LDL Cholesterol Direct HDL Cholesterol 25-OH Vitamin D Total PTH Intact Urine pH Urine WBC (Auto) Urine Creatinine Urine Total Protein Fluid Total Protein Vancomycin Trough Rheumatoid Factor Complement C4 Miscellaneous Test Crossmatch 09/21/16 09/21/16 09/21/16 07:45 07:45 10:01 WBC 13.8 H RBC 2.94 L Hgb 7.5 L Hct 23.5 L MCV MCH 26 L MCHC RDW 21.2 H Plt Count Lymph % (Auto) 6.9 L [place] % (Auto) 9.4 H Lymph # 0.9 L [place] # 1.3 H Baso # Seg Neutrophils % 83.2 H Seg Neuts % (Manual) Lymphocytes % (Manual) Monocytes % (Manual) Eosinophils % (Manual) Basophils % (Manual) Nucleated RBC % Seg Neutrophils # 11.5 H Seg Neutrophils # Man Lymphocytes # (Manual) Monocytes # (Manual) Eosinophils # (Manual) Basophils # (Manual) PT INR Fibrinogen dRVVT Confirm Interp Factor V Activity POC ABG pH 7.308 L POC ABG pCO2 31.9 L POC ABG pO2 148 H ABG pO2 ABG HCO3 ABG Base Excess ABG Hemoglobin Oxyhemoglobin Sodium 147 H Potassium Chloride 114.2 H Carbon Dioxide 15 L BUN 120 H Creatinine 3.9 H Glucose 156 H POC Glucose Lactic Acid Calcium 8.2 L Ionized Calcium Phosphorus Magnesium Direct Bilirubin AST ALT Alkaline Phosphatase Lactate Dehydrogenase Troponin T C-Reactive Protein Total Protein Albumin Prealbumin Triglycerides Cholesterol LDL Cholesterol Direct HDL Cholesterol 25-OH Vitamin D Total PTH Intact Urine pH Urine WBC (Auto) Urine Creatinine Urine Total Protein Fluid Total Protein Vancomycin Trough Rheumatoid Factor Complement C4 Miscellaneous Test Crossmatch 09/21/16 09/21/16 09/21/16 12:00 12:03 13:00 WBC RBC Hgb Hct MCV MCH MCHC RDW Plt Count Lymph % (Auto) [place] % (Auto) Lymph # [place] # Baso # Seg Neutrophils % Seg Neuts % (Manual) Lymphocytes % (Manual) Monocytes % (Manual) Eosinophils % (Manual) Basophils % (Manual) Nucleated RBC % Seg Neutrophils # Seg Neutrophils # Man Lymphocytes # (Manual) Monocytes # (Manual) Eosinophils # (Manual) Basophils # (Manual) PT INR Fibrinogen dRVVT Confirm Interp Factor V Activity POC ABG pH POC ABG pCO2 POC ABG pO2 ABG pO2 ABG HCO3 ABG Base Excess ABG Hemoglobin Oxyhemoglobin Sodium Potassium Chloride Carbon Dioxide BUN Creatinine Glucose POC Glucose 163 H Lactic Acid Calcium Ionized Calcium Phosphorus Magnesium Direct Bilirubin AST ALT Alkaline Phosphatase Lactate Dehydrogenase Troponin T C-Reactive Protein Total Protein Albumin Prealbumin Triglycerides Cholesterol LDL Cholesterol Direct HDL Cholesterol 25-OH Vitamin D Total PTH Intact Urine pH Urine WBC (Auto) Urine Creatinine 54.8 H Urine Total Protein Fluid Total Protein Vancomycin Trough 2.3 L Rheumatoid Factor Complement C4 Miscellaneous Test Crossmatch 09/21/16 09/21/16 09/22/16 16:51 23:17 06:27 WBC RBC Hgb Hct MCV MCH MCHC RDW Plt Count Lymph % (Auto) [place] % (Auto) Lymph # [place] # Baso # Seg Neutrophils % Seg Neuts % (Manual) Lymphocytes % (Manual) Monocytes % (Manual) Eosinophils % (Manual) Basophils % (Manual) Nucleated RBC % Seg Neutrophils # Seg Neutrophils # Man Lymphocytes # (Manual) Monocytes # (Manual) Eosinophils # (Manual) Basophils # (Manual) PT INR Fibrinogen dRVVT Confirm Interp Factor V Activity POC ABG pH POC ABG pCO2 POC ABG pO2 ABG pO2 ABG HCO3 ABG Base Excess ABG Hemoglobin Oxyhemoglobin Sodium Potassium Chloride Carbon Dioxide BUN Creatinine Glucose POC Glucose 206 H 114 H 115 H Lactic Acid Calcium Ionized Calcium Phosphorus Magnesium Direct Bilirubin AST ALT Alkaline Phosphatase Lactate Dehydrogenase Troponin T C-Reactive Protein Total Protein Albumin Prealbumin Triglycerides Cholesterol LDL Cholesterol Direct HDL Cholesterol 25-OH Vitamin D Total PTH Intact Urine pH Urine WBC (Auto) Urine Creatinine Urine Total Protein Fluid Total Protein Vancomycin Trough Rheumatoid Factor Complement C4 Miscellaneous Test Crossmatch 09/22/16 09/22/16 09/22/16 07:50 07:50 12:00 WBC 17.8 H RBC 3.04 L Hgb 8.0 L Hct 24.7 L MCV MCH 26 L MCHC RDW 21.6 H Plt Count Lymph % (Auto) [place] % (Auto) Lymph # [place] # Baso # Seg Neutrophils % Seg Neuts % (Manual) Lymphocytes % (Manual) Monocytes % (Manual) Eosinophils % (Manual) Basophils % (Manual) Nucleated RBC % Seg Neutrophils # Seg Neutrophils # Man Lymphocytes # (Manual) Monocytes # (Manual) Eosinophils # (Manual) Basophils # (Manual) PT INR Fibrinogen dRVVT Confirm Interp Factor V Activity POC ABG pH POC ABG pCO2 POC ABG pO2 ABG pO2 ABG HCO3 ABG Base Excess ABG Hemoglobin Oxyhemoglobin Sodium 150 H Potassium Chloride 118.2 H Carbon Dioxide 14 L BUN 111 H Creatinine 3.7 H Glucose 157 H POC Glucose 183 H Lactic Acid Calcium Ionized Calcium Phosphorus Magnesium Direct Bilirubin AST ALT Alkaline Phosphatase Lactate Dehydrogenase Troponin T C-Reactive Protein Total Protein Albumin Prealbumin Triglycerides Cholesterol LDL Cholesterol Direct HDL Cholesterol 25-OH Vitamin D Total PTH Intact Urine pH Urine WBC (Auto) Urine Creatinine Urine Total Protein Fluid Total Protein Vancomycin Trough Rheumatoid Factor Complement C4 Miscellaneous Test Crossmatch 09/22/16 09/22/16 09/23/16 17:29 23:10 05:00 WBC 19.2 H RBC 3.13 L Hgb 8.0 L Hct 25.2 L MCV MCH 26 L MCHC RDW 22.1 H Plt Count Lymph % (Auto) [place] % (Auto) Lymph # [place] # Baso # Seg Neutrophils % Seg Neuts % (Manual) 92.0 H Lymphocytes % (Manual) 3.0 L Monocytes % (Manual) Eosinophils % (Manual) Basophils % (Manual) Nucleated RBC % Seg Neutrophils # Seg Neutrophils # Man 17.7 H Lymphocytes # (Manual) 0.6 L Monocytes # (Manual) Eosinophils # (Manual) Basophils # (Manual) PT INR Fibrinogen dRVVT Confirm Interp Factor V Activity POC ABG pH POC ABG pCO2 POC ABG pO2 ABG pO2 ABG HCO3 ABG Base Excess ABG Hemoglobin Oxyhemoglobin Sodium Potassium Chloride Carbon Dioxide BUN Creatinine Glucose POC Glucose 197 H 169 H Lactic Acid Calcium Ionized Calcium Phosphorus Magnesium Direct Bilirubin AST ALT Alkaline Phosphatase Lactate Dehydrogenase Troponin T C-Reactive Protein Total Protein Albumin Prealbumin Triglycerides Cholesterol LDL Cholesterol Direct HDL Cholesterol 25-OH Vitamin D Total PTH Intact Urine pH Urine WBC (Auto) Urine Creatinine Urine Total Protein Fluid Total Protein Vancomycin Trough Rheumatoid Factor Complement C4 Miscellaneous Test Crossmatch 09/23/16 09/23/16 09/23/16 05:00 05:00 05:10 WBC RBC Hgb Hct MCV MCH MCHC RDW Plt Count Lymph % (Auto) [place] % (Auto) Lymph # [place] # Baso # Seg Neutrophils % Seg Neuts % (Manual) Lymphocytes % (Manual) Monocytes % (Manual) Eosinophils % (Manual) Basophils % (Manual) Nucleated RBC % Seg Neutrophils # Seg Neutrophils # Man Lymphocytes # (Manual) Monocytes # (Manual) Eosinophils # (Manual) Basophils # (Manual) PT INR Fibrinogen dRVVT Confirm Interp Factor V Activity POC ABG pH POC ABG pCO2 POC ABG pO2 ABG pO2 ABG HCO3 ABG Base Excess ABG Hemoglobin Oxyhemoglobin Sodium 147 H Potassium 3.2 L Chloride 115.7 H Carbon Dioxide 13 L BUN 111 H Creatinine 3.8 H Glucose 194 H POC Glucose 188 H Lactic Acid Calcium 7.3 L D Ionized Calcium Phosphorus Magnesium Direct Bilirubin AST ALT Alkaline Phosphatase Lactate Dehydrogenase Troponin T C-Reactive Protein 3.20 H Total Protein Albumin Prealbumin Triglycerides Cholesterol LDL Cholesterol Direct HDL Cholesterol 25-OH Vitamin D Total PTH Intact Urine pH Urine WBC (Auto) Urine Creatinine Urine Total Protein Fluid Total Protein Vancomycin Trough Rheumatoid Factor Complement C4 Miscellaneous Test Crossmatch 09/23/16 09/23/16 09/23/16 11:37 12:29 18:01 WBC RBC Hgb Hct MCV MCH MCHC RDW Plt Count Lymph % (Auto) [place] % (Auto) Lymph # [place] # Baso # Seg Neutrophils % Seg Neuts % (Manual) Lymphocytes % (Manual) Monocytes % (Manual) Eosinophils % (Manual) Basophils % (Manual) Nucleated RBC % Seg Neutrophils # Seg Neutrophils # Man Lymphocytes # (Manual) Monocytes # (Manual) Eosinophils # (Manual) Basophils # (Manual) PT INR Fibrinogen dRVVT Confirm Interp Factor V Activity POC ABG pH POC ABG pCO2 18.9 L POC ABG pO2 143 H ABG pO2 ABG HCO3 ABG Base Excess ABG Hemoglobin Oxyhemoglobin Sodium Potassium Chloride Carbon Dioxide BUN Creatinine Glucose POC Glucose 153 H 108 H Lactic Acid Calcium Ionized Calcium Phosphorus Magnesium Direct Bilirubin AST ALT Alkaline Phosphatase Lactate Dehydrogenase Troponin T C-Reactive Protein Total Protein Albumin Prealbumin Triglycerides Cholesterol LDL Cholesterol Direct HDL Cholesterol 25-OH Vitamin D Total PTH Intact Urine pH Urine WBC (Auto) Urine Creatinine Urine Total Protein Fluid Total Protein Vancomycin Trough Rheumatoid Factor Complement C4 Miscellaneous Test Crossmatch 09/23/16 09/23/16 09/24/16 21:19 23:43 05:16 WBC RBC Hgb Hct MCV MCH MCHC RDW Plt Count Lymph % (Auto) [place] % (Auto) Lymph # [place] # Baso # Seg Neutrophils % Seg Neuts % (Manual) Lymphocytes % (Manual) Monocytes % (Manual) Eosinophils % (Manual) Basophils % (Manual) Nucleated RBC % Seg Neutrophils # Seg Neutrophils # Man Lymphocytes # (Manual) Monocytes # (Manual) Eosinophils # (Manual) Basophils # (Manual) PT INR Fibrinogen dRVVT Confirm Interp Factor V Activity POC ABG pH POC ABG pCO2 17.3 L POC ABG pO2 112 H ABG pO2 ABG HCO3 ABG Base Excess ABG Hemoglobin Oxyhemoglobin Sodium Potassium Chloride Carbon Dioxide BUN Creatinine Glucose POC Glucose 143 H 164 H Lactic Acid Calcium Ionized Calcium Phosphorus Magnesium Direct Bilirubin AST ALT Alkaline Phosphatase Lactate Dehydrogenase Troponin T C-Reactive Protein Total Protein Albumin Prealbumin Triglycerides Cholesterol LDL Cholesterol Direct HDL Cholesterol 25-OH Vitamin D Total PTH Intact Urine pH Urine WBC (Auto) Urine Creatinine Urine Total Protein Fluid Total Protein Vancomycin Trough Rheumatoid Factor Complement C4 Miscellaneous Test Crossmatch 09/24/16 09/24/16 09/24/16 05:21 11:58 17:06 WBC RBC Hgb Hct MCV MCH MCHC RDW Plt Count Lymph % (Auto) [place] % (Auto) Lymph # [place] # Baso # Seg Neutrophils % Seg Neuts % (Manual) Lymphocytes % (Manual) Monocytes % (Manual) Eosinophils % (Manual) Basophils % (Manual) Nucleated RBC % Seg Neutrophils # Seg Neutrophils # Man Lymphocytes # (Manual) Monocytes # (Manual) Eosinophils # (Manual) Basophils # (Manual) PT INR Fibrinogen dRVVT Confirm Interp Factor V Activity POC ABG pH POC ABG pCO2 POC ABG pO2 ABG pO2 ABG HCO3 ABG Base Excess ABG Hemoglobin Oxyhemoglobin Sodium Potassium Chloride Carbon Dioxide 10 L BUN 103 H Creatinine 4.3 H Glucose 163 H POC Glucose 173 H 167 H Lactic Acid Calcium 6.5 L Ionized Calcium Phosphorus Magnesium Direct Bilirubin AST ALT Alkaline Phosphatase Lactate Dehydrogenase Troponin T C-Reactive Protein Total Protein Albumin Prealbumin Triglycerides Cholesterol LDL Cholesterol Direct HDL Cholesterol 25-OH Vitamin D Total PTH Intact Urine pH Urine WBC (Auto) Urine Creatinine Urine Total Protein Fluid Total Protein Vancomycin Trough Rheumatoid Factor Complement C4 Miscellaneous Test Crossmatch 09/24/16 09/24/16 09/24/16 20:15 21:02 23:48 WBC RBC Hgb Hct MCV MCH MCHC RDW Plt Count Lymph % (Auto) [place] % (Auto) Lymph # [place] # Baso # Seg Neutrophils % Seg Neuts % (Manual) Lymphocytes % (Manual) Monocytes % (Manual) Eosinophils % (Manual) Basophils % (Manual) Nucleated RBC % Seg Neutrophils # Seg Neutrophils # Man Lymphocytes # (Manual) Monocytes # (Manual) Eosinophils # (Manual) Basophils # (Manual) PT INR Fibrinogen dRVVT Confirm Interp Factor V Activity POC ABG pH 7.288 L POC ABG pCO2 30.2 L 21.5 L POC ABG pO2 32 L 39 L ABG pO2 ABG HCO3 ABG Base Excess ABG Hemoglobin Oxyhemoglobin Sodium Potassium Chloride Carbon Dioxide BUN Creatinine Glucose POC Glucose 109 H Lactic Acid Calcium Ionized Calcium Phosphorus Magnesium Direct Bilirubin AST ALT Alkaline Phosphatase Lactate Dehydrogenase Troponin T C-Reactive Protein Total Protein Albumin Prealbumin Triglycerides Cholesterol LDL Cholesterol Direct HDL Cholesterol 25-OH Vitamin D Total PTH Intact Urine pH Urine WBC (Auto) Urine Creatinine Urine Total Protein Fluid Total Protein Vancomycin Trough Rheumatoid Factor Complement C4 Miscellaneous Test Crossmatch 09/25/16 09/25/16 09/25/16 04:20 04:20 04:20 WBC RBC 2.58 L Hgb 7.0 L Hct 21.0 L MCV MCH 27 L MCHC RDW 23.8 H Plt Count Lymph % (Auto) [place] % (Auto) Lymph # [place] # Baso # Seg Neutrophils % Seg Neuts % (Manual) Lymphocytes % (Manual) 12.0 L Monocytes % (Manual) Eosinophils % (Manual) 7.0 H Basophils % (Manual) 2.0 H Nucleated RBC % Seg Neutrophils # Seg Neutrophils # Man Lymphocytes # (Manual) 0.9 L Monocytes # (Manual) Eosinophils # (Manual) 0.5 H Basophils # (Manual) PT INR Fibrinogen dRVVT Confirm Interp Factor V Activity POC ABG pH POC ABG pCO2 POC ABG pO2 ABG pO2 ABG HCO3 ABG Base Excess ABG Hemoglobin Oxyhemoglobin Sodium Potassium Chloride Carbon Dioxide 15 L BUN 72 H Creatinine 3.8 H Glucose POC Glucose Lactic Acid Calcium 6.0 L Ionized Calcium Phosphorus 4.60 H Magnesium 1.60 L Direct Bilirubin AST ALT Alkaline Phosphatase Lactate Dehydrogenase Troponin T C-Reactive Protein Total Protein Albumin Prealbumin Triglycerides Cholesterol LDL Cholesterol Direct HDL Cholesterol 25-OH Vitamin D Total PTH Intact Urine pH Urine WBC (Auto) Urine Creatinine Urine Total Protein Fluid Total Protein Vancomycin Trough Rheumatoid Factor Complement C4 Miscellaneous Test Crossmatch 09/25/16 09/25/16 09/25/16 04:57 08:02 10:30 WBC RBC Hgb Hct MCV MCH MCHC RDW Plt Count Lymph % (Auto) [place] % (Auto) Lymph # [place] # Baso # Seg Neutrophils % Seg Neuts % (Manual) Lymphocytes % (Manual) Monocytes % (Manual) Eosinophils % (Manual) Basophils % (Manual) Nucleated RBC % Seg Neutrophils # Seg Neutrophils # Man Lymphocytes # (Manual) Monocytes # (Manual) Eosinophils # (Manual) Basophils # (Manual) PT INR Fibrinogen dRVVT Confirm Interp Factor V Activity POC ABG pH POC ABG pCO2 24.7 L POC ABG pO2 152 H ABG pO2 ABG HCO3 ABG Base Excess ABG Hemoglobin Oxyhemoglobin Sodium Potassium Chloride Carbon Dioxide BUN Creatinine Glucose POC Glucose 113 H Lactic Acid Calcium Ionized Calcium Phosphorus Magnesium Direct Bilirubin AST ALT Alkaline Phosphatase Lactate Dehydrogenase Troponin T C-Reactive Protein Total Protein Albumin Prealbumin Triglycerides Cholesterol LDL Cholesterol Direct HDL Cholesterol 25-OH Vitamin D Total PTH Intact Urine pH Urine WBC (Auto) Urine Creatinine Urine Total Protein Fluid Total Protein Vancomycin Trough Rheumatoid Factor Complement C4 Miscellaneous Test Crossmatch See Detail 09/25/16 09/25/1617 12:05 17:44 23:47 WBC RBC Hgb Hct MCV MCH MCHC RDW Plt Count Lymph % (Auto) [place] % (Auto) Lymph # [place] # Baso # Seg Neutrophils % Seg Neuts % (Manual) Lymphocytes % (Manual) Monocytes % (Manual) Eosinophils % (Manual) Basophils % (Manual) Nucleated RBC % Seg Neutrophils # Seg Neutrophils # Man Lymphocytes # (Manual) Monocytes # (Manual) Eosinophils # (Manual) Basophils # (Manual) PT INR Fibrinogen dRVVT Confirm Interp Factor V Activity POC ABG pH POC ABG pCO2 POC ABG pO2 ABG pO2 ABG HCO3 ABG Base Excess ABG Hemoglobin Oxyhemoglobin Sodium Potassium Chloride Carbon Dioxide BUN Creatinine Glucose POC Glucose 117 H 119 H 150 H Lactic Acid Calcium Ionized Calcium Phosphorus Magnesium Direct Bilirubin AST ALT Alkaline Phosphatase Lactate Dehydrogenase Troponin T C-Reactive Protein Total Protein Albumin Prealbumin Triglycerides Cholesterol LDL Cholesterol Direct HDL Cholesterol 25-OH Vitamin D Total PTH Intact Urine pH Urine WBC (Auto) Urine Creatinine Urine Total Protein Fluid Total Protein Vancomycin Trough Rheumatoid Factor Complement C4 Miscellaneous Test Crossmatch 09/26/16 09/26/16 09/26/16 04:25 04:25 04:25 WBC RBC 2.65 L Hgb 7.4 L Hct 21.6 L MCV MCH MCHC RDW 22.5 H Plt Count Lymph % (Auto) [place] % (Auto) Lymph # [place] # Baso # Seg Neutrophils % Seg Neuts % (Manual) Lymphocytes % (Manual) 6.0 L Monocytes % (Manual) Eosinophils % (Manual) 11.0 H Basophils % (Manual) Nucleated RBC % Seg Neutrophils # Seg Neutrophils # Man Lymphocytes # (Manual) 0.4 L Monocytes # (Manual) Eosinophils # (Manual) 0.6 H Basophils # (Manual) PT INR Fibrinogen dRVVT Confirm Interp Factor V Activity POC ABG pH POC ABG pCO2 POC ABG pO2 ABG pO2 ABG HCO3 ABG Base Excess ABG Hemoglobin Oxyhemoglobin Sodium Potassium Chloride 97.0 L Carbon Dioxide 19 L BUN 43 H Creatinine 2.6 H Glucose 130 H POC Glucose Lactic Acid 4.40 H* Calcium 6.7 L Ionized Calcium Phosphorus Magnesium Direct Bilirubin AST ALT Alkaline Phosphatase Lactate Dehydrogenase Troponin T C-Reactive Protein Total Protein Albumin Prealbumin Triglycerides Cholesterol LDL Cholesterol Direct HDL Cholesterol 25-OH Vitamin D Total PTH Intact Urine pH Urine WBC (Auto) Urine Creatinine Urine Total Protein Fluid Total Protein Vancomycin Trough Rheumatoid Factor Complement C4 Miscellaneous Test Crossmatch 09/26/16 09/26/16 09/26/16 05:20 11:44 12:12 WBC RBC Hgb Hct MCV MCH MCHC RDW Plt Count Lymph % (Auto) [place] % (Auto) Lymph # [place] # Baso # Seg Neutrophils % Seg Neuts % (Manual) Lymphocytes % (Manual) Monocytes % (Manual) Eosinophils % (Manual) Basophils % (Manual) Nucleated RBC % Seg Neutrophils # Seg Neutrophils # Man Lymphocytes # (Manual) Monocytes # (Manual) Eosinophils # (Manual) Basophils # (Manual) PT INR Fibrinogen dRVVT Confirm Interp Factor V Activity POC ABG pH POC ABG pCO2 27.0 L POC ABG pO2 69 L ABG pO2 ABG HCO3 ABG Base Excess ABG Hemoglobin Oxyhemoglobin Sodium Potassium Chloride Carbon Dioxide BUN Creatinine Glucose POC Glucose 121 H 128 H Lactic Acid Calcium Ionized Calcium Phosphorus Magnesium Direct Bilirubin AST ALT Alkaline Phosphatase Lactate Dehydrogenase Troponin T C-Reactive Protein Total Protein Albumin Prealbumin Triglycerides Cholesterol LDL Cholesterol Direct HDL Cholesterol 25-OH Vitamin D Total PTH Intact Urine pH Urine WBC (Auto) Urine Creatinine Urine Total Protein Fluid Total Protein Vancomycin Trough Rheumatoid Factor Complement C4 Miscellaneous Test Crossmatch 09/26/16 09/26/16 09/27/16 18:31 23:40 08:20 WBC RBC Hgb Hct MCV MCH MCHC RDW Plt Count Lymph % (Auto) [place] % (Auto) Lymph # [place] # Baso # Seg Neutrophils % Seg Neuts % (Manual) Lymphocytes % (Manual) Monocytes % (Manual) Eosinophils % (Manual) Basophils % (Manual) Nucleated RBC % Seg Neutrophils # Seg Neutrophils # Man Lymphocytes # (Manual) Monocytes # (Manual) Eosinophils # (Manual) Basophils # (Manual) PT INR Fibrinogen dRVVT Confirm Interp Factor V Activity POC ABG pH POC ABG pCO2 POC ABG pO2 ABG pO2 ABG HCO3 ABG Base Excess ABG Hemoglobin Oxyhemoglobin Sodium Potassium Chloride Carbon Dioxide BUN Creatinine Glucose POC Glucose 120 H 133 H Lactic Acid 4.10 H* Calcium Ionized Calcium Phosphorus Magnesium Direct Bilirubin AST ALT Alkaline Phosphatase Lactate Dehydrogenase Troponin T C-Reactive Protein Total Protein Albumin Prealbumin Triglycerides Cholesterol LDL Cholesterol Direct HDL Cholesterol 25-OH Vitamin D Total PTH Intact Urine pH Urine WBC (Auto) Urine Creatinine Urine Total Protein Fluid Total Protein Vancomycin Trough Rheumatoid Factor Complement C4 Miscellaneous Test Crossmatch 09/27/16 09/27/16 09/27/16 11:23 15:00 18:15 WBC RBC Hgb Hct MCV MCH MCHC RDW Plt Count Lymph % (Auto) [place] % (Auto) Lymph # [place] # Baso # Seg Neutrophils % Seg Neuts % (Manual) Lymphocytes % (Manual) Monocytes % (Manual) Eosinophils % (Manual) Basophils % (Manual) Nucleated RBC % Seg Neutrophils # Seg Neutrophils # Man Lymphocytes # (Manual) Monocytes # (Manual) Eosinophils # (Manual) Basophils # (Manual) PT INR Fibrinogen dRVVT Confirm Interp Factor V Activity POC ABG pH 7.459 H POC ABG pCO2 27.1 L POC ABG pO2 140 H ABG pO2 ABG HCO3 ABG Base Excess ABG Hemoglobin Oxyhemoglobin Sodium Potassium Chloride Carbon Dioxide BUN Creatinine Glucose POC Glucose 114 H 127 H Lactic Acid Calcium Ionized Calcium Phosphorus Magnesium Direct Bilirubin AST ALT Alkaline Phosphatase Lactate Dehydrogenase Troponin T C-Reactive Protein Total Protein Albumin Prealbumin Triglycerides Cholesterol LDL Cholesterol Direct HDL Cholesterol 25-OH Vitamin D Total PTH Intact Urine pH Urine WBC (Auto) Urine Creatinine Urine Total Protein Fluid Total Protein Vancomycin Trough Rheumatoid Factor Complement C4 Miscellaneous Test Crossmatch 09/27/16 09/27/16 09/28/16 Unknown Unknown 03:45 WBC RBC 2.49 L Hgb 6.8 L Hct 20.7 L MCV MCH 27 L MCHC RDW 22.1 H Plt Count Lymph % (Auto) [place] % (Auto) Lymph # [place] # Baso # Seg Neutrophils % Seg Neuts % (Manual) 32.0 L Lymphocytes % (Manual) 12.0 L Monocytes % (Manual) 11.0 H Eosinophils % (Manual) 10.0 H Basophils % (Manual) Nucleated RBC % Seg Neutrophils # Seg Neutrophils # Man Lymphocytes # (Manual) 1.0 L Monocytes # (Manual) 0.9 H Eosinophils # (Manual) 0.8 H Basophils # (Manual) PT INR Fibrinogen dRVVT Confirm Interp Factor V Activity POC ABG pH POC ABG pCO2 POC ABG pO2 ABG pO2 ABG HCO3 ABG Base Excess ABG Hemoglobin Oxyhemoglobin Sodium 135 L 135 L Potassium 3.5 L Chloride 93.6 L 94.4 L Carbon Dioxide 17 L 21 L BUN 45 H 28 H Creatinine 3.3 H 2.5 H Glucose 106 H POC Glucose Lactic Acid Calcium 7.3 L 7.1 L Ionized Calcium Phosphorus Magnesium Direct Bilirubin AST ALT Alkaline Phosphatase Lactate Dehydrogenase Troponin T C-Reactive Protein Total Protein Albumin Prealbumin Triglycerides Cholesterol LDL Cholesterol Direct HDL Cholesterol 25-OH Vitamin D Total PTH Intact Urine pH Urine WBC (Auto) Urine Creatinine Urine Total Protein Fluid Total Protein Vancomycin Trough Rheumatoid Factor Complement C4 Miscellaneous Test Crossmatch 09/28/16 09/28/16 09/28/16 03:45 07:25 11:58 WBC 13.3 H RBC 3.01 L Hgb 8.4 L Hct 25.0 L MCV MCH MCHC RDW 20.5 H Plt Count 128 L Lymph % (Auto) [place] % (Auto) Lymph # [place] # Baso # Seg Neutrophils % Seg Neuts % (Manual) Lymphocytes % (Manual) 7.0 L Monocytes % (Manual) Eosinophils % (Manual) 6.0 H Basophils % (Manual) Nucleated RBC % Seg Neutrophils # Seg Neutrophils # Man Lymphocytes # (Manual) 0.9 L Monocytes # (Manual) Eosinophils # (Manual) 0.8 H Basophils # (Manual) PT INR Fibrinogen dRVVT Confirm Interp Factor V Activity POC ABG pH POC ABG pCO2 POC ABG pO2 ABG pO2 ABG HCO3 ABG Base Excess ABG Hemoglobin Oxyhemoglobin Sodium Potassium Chloride Carbon Dioxide BUN Creatinine Glucose POC Glucose 121 H Lactic Acid 4.50 H* Calcium Ionized Calcium Phosphorus Magnesium Direct Bilirubin AST ALT Alkaline Phosphatase Lactate Dehydrogenase Troponin T C-Reactive Protein Total Protein Albumin Prealbumin Triglycerides Cholesterol LDL Cholesterol Direct HDL Cholesterol 25-OH Vitamin D Total PTH Intact Urine pH Urine WBC (Auto) Urine Creatinine Urine Total Protein Fluid Total Protein Vancomycin Trough Rheumatoid Factor Complement C4 Miscellaneous Test Crossmatch 09/29/16 09/29/16 09/29/16 06:45 06:45 06:45 WBC 14.9 H RBC 2.74 L Hgb 7.6 L Hct 23.2 L MCV MCH MCHC RDW 20.5 H Plt Count 81 L Lymph % (Auto) [place] % (Auto) Lymph # [place] # Baso # Seg Neutrophils % Seg Neuts % (Manual) 81.0 H Lymphocytes % (Manual) 4.0 L Monocytes % (Manual) Eosinophils % (Manual) Basophils % (Manual) Nucleated RBC % Seg Neutrophils # Seg Neutrophils # Man 12.1 H Lymphocytes # (Manual) 0.6 L Monocytes # (Manual) Eosinophils # (Manual) Basophils # (Manual) PT INR Fibrinogen dRVVT Confirm Interp Factor V Activity POC ABG pH POC ABG pCO2 POC ABG pO2 ABG pO2 ABG HCO3 ABG Base Excess ABG Hemoglobin Oxyhemoglobin Sodium 133 L Potassium 3.4 L Chloride 92.5 L Carbon Dioxide 21 L BUN 33 H Creatinine 3.0 H Glucose POC Glucose Lactic Acid Calcium 6.6 L Ionized Calcium Phosphorus Magnesium 1.40 L Direct Bilirubin 0.9 H AST ALT Alkaline Phosphatase Lactate Dehydrogenase Troponin T C-Reactive Protein Total Protein 4.3 L Albumin 1.3 L Prealbumin Triglycerides Cholesterol LDL Cholesterol Direct HDL Cholesterol 25-OH Vitamin D Total PTH Intact Urine pH Urine WBC (Auto) Urine Creatinine Urine Total Protein Fluid Total Protein Vancomycin Trough Rheumatoid Factor Complement C4 Miscellaneous Test Crossmatch 09/29/16 09/29/16 09/30/16 17:52 20:12 00:07 WBC RBC Hgb Hct MCV MCH MCHC RDW Plt Count Lymph % (Auto) [place] % (Auto) Lymph # [place] # Baso # Seg Neutrophils % Seg Neuts % (Manual) Lymphocytes % (Manual) Monocytes % (Manual) Eosinophils % (Manual) Basophils % (Manual) Nucleated RBC % Seg Neutrophils # Seg Neutrophils # Man Lymphocytes # (Manual) Monocytes # (Manual) Eosinophils # (Manual) Basophils # (Manual) PT INR Fibrinogen dRVVT Confirm Interp Factor V Activity POC ABG pH POC ABG pCO2 POC ABG pO2 ABG pO2 ABG HCO3 ABG Base Excess ABG Hemoglobin Oxyhemoglobin Sodium Potassium Chloride Carbon Dioxide BUN Creatinine Glucose POC Glucose 50 L 51 L Lactic Acid Calcium Ionized Calcium Phosphorus Magnesium Direct Bilirubin AST ALT Alkaline Phosphatase Lactate Dehydrogenase Troponin T 0.204 H* C-Reactive Protein Total Protein Albumin Prealbumin Triglycerides Cholesterol 31 L LDL Cholesterol Direct 4 L HDL Cholesterol 3 L 25-OH Vitamin D Total PTH Intact Urine pH Urine WBC (Auto) Urine Creatinine Urine Total Protein Fluid Total Protein Vancomycin Trough Rheumatoid Factor Complement C4 Miscellaneous Test Crossmatch 09/30/16 09/30/16 09/30/16 01:30 05:15 06:10 WBC RBC Hgb Hct MCV MCH MCHC RDW Plt Count Lymph % (Auto) [place] % (Auto) Lymph # [place] # Baso # Seg Neutrophils % Seg Neuts % (Manual) Lymphocytes % (Manual) Monocytes % (Manual) Eosinophils % (Manual) Basophils % (Manual) Nucleated RBC % Seg Neutrophils # Seg Neutrophils # Man Lymphocytes # (Manual) Monocytes # (Manual) Eosinophils # (Manual) Basophils # (Manual) PT INR Fibrinogen dRVVT Confirm Interp Factor V Activity POC ABG pH POC ABG pCO2 POC ABG pO2 ABG pO2 ABG HCO3 ABG Base Excess ABG Hemoglobin Oxyhemoglobin Sodium 133 L Potassium 3.2 L Chloride 93.2 L Carbon Dioxide 19 L BUN 36 H Creatinine 3.2 H Glucose 104 H POC Glucose 167 H 146 H Lactic Acid Calcium 6.4 L Ionized Calcium Phosphorus Magnesium 1.60 L Direct Bilirubin AST ALT Alkaline Phosphatase Lactate Dehydrogenase Troponin T C-Reactive Protein Total Protein Albumin Prealbumin Triglycerides Cholesterol LDL Cholesterol Direct HDL Cholesterol 25-OH Vitamin D Total PTH Intact Urine pH Urine WBC (Auto) Urine Creatinine Urine Total Protein Fluid Total Protein Vancomycin Trough Rheumatoid Factor Complement C4 Miscellaneous Test Crossmatch 09/30/16 09/30/16 09/30/16 11:26 13:39 18:38 WBC RBC Hgb Hct MCV MCH MCHC RDW Plt Count Lymph % (Auto) [place] % (Auto) Lymph # [place] # Baso # Seg Neutrophils % Seg Neuts % (Manual) Lymphocytes % (Manual) Monocytes % (Manual) Eosinophils % (Manual) Basophils % (Manual) Nucleated RBC % Seg Neutrophils # Seg Neutrophils # Man Lymphocytes # (Manual) Monocytes # (Manual) Eosinophils # (Manual) Basophils # (Manual) PT INR Fibrinogen dRVVT Confirm Interp Factor V Activity POC ABG pH 7.479 H POC ABG pCO2 29.8 L POC ABG pO2 117 H ABG pO2 ABG HCO3 ABG Base Excess ABG Hemoglobin Oxyhemoglobin Sodium Potassium Chloride Carbon Dioxide BUN Creatinine Glucose POC Glucose 140 H 122 H Lactic Acid Calcium Ionized Calcium Phosphorus Magnesium Direct Bilirubin AST ALT Alkaline Phosphatase Lactate Dehydrogenase Troponin T C-Reactive Protein Total Protein Albumin Prealbumin Triglycerides Cholesterol LDL Cholesterol Direct HDL Cholesterol 25-OH Vitamin D Total PTH Intact Urine pH Urine WBC (Auto) Urine Creatinine Urine Total Protein Fluid Total Protein Vancomycin Trough Rheumatoid Factor Complement C4 Miscellaneous Test Crossmatch 10/01/16 10/01/16 10/01/16 06:00 06:00 12:37 WBC 12.6 H RBC 2.75 L Hgb 7.3 L Hct 23.3 L MCV MCH 27 L MCHC RDW 20.6 H Plt Count 72 L Lymph % (Auto) [place] % (Auto) Lymph # [place] # Baso # Seg Neutrophils % Seg Neuts % (Manual) 31.0 L Lymphocytes % (Manual) 8.0 L Monocytes % (Manual) Eosinophils % (Manual) Basophils % (Manual) Nucleated RBC % 3.0 H Seg Neutrophils # Seg Neutrophils # Man Lymphocytes # (Manual) 1.0 L Monocytes # (Manual) Eosinophils # (Manual) Basophils # (Manual) PT INR Fibrinogen dRVVT Confirm Interp Factor V Activity POC ABG pH POC ABG pCO2 POC ABG pO2 ABG pO2 ABG HCO3 ABG Base Excess ABG Hemoglobin Oxyhemoglobin Sodium 127 L Potassium Chloride 86.8 L Carbon Dioxide 20 L BUN 42 H Creatinine 3.5 H Glucose POC Glucose 65 L Lactic Acid Calcium 7.0 L Ionized Calcium Phosphorus Magnesium Direct Bilirubin AST ALT Alkaline Phosphatase Lactate Dehydrogenase Troponin T C-Reactive Protein Total Protein Albumin Prealbumin Triglycerides Cholesterol LDL Cholesterol Direct HDL Cholesterol 25-OH Vitamin D Total PTH Intact Urine pH Urine WBC (Auto) Urine Creatinine Urine Total Protein Fluid Total Protein Vancomycin Trough Rheumatoid Factor Complement C4 Miscellaneous Test Crossmatch 10/01/16 10/01/16 10/02/16 17:39 23:32 00:59 WBC RBC Hgb Hct MCV MCH MCHC RDW Plt Count Lymph % (Auto) [place] % (Auto) Lymph # [place] # Baso # Seg Neutrophils % Seg Neuts % (Manual) Lymphocytes % (Manual) Monocytes % (Manual) Eosinophils % (Manual) Basophils % (Manual) Nucleated RBC % Seg Neutrophils # Seg Neutrophils # Man Lymphocytes # (Manual) Monocytes # (Manual) Eosinophils # (Manual) Basophils # (Manual) PT INR Fibrinogen dRVVT Confirm Interp Factor V Activity POC ABG pH POC ABG pCO2 POC ABG pO2 ABG pO2 ABG HCO3 ABG Base Excess ABG Hemoglobin Oxyhemoglobin Sodium Potassium Chloride Carbon Dioxide BUN Creatinine Glucose POC Glucose 107 H 52 L 145 H Lactic Acid Calcium Ionized Calcium Phosphorus Magnesium Direct Bilirubin AST ALT Alkaline Phosphatase Lactate Dehydrogenase Troponin T C-Reactive Protein Total Protein Albumin Prealbumin Triglycerides Cholesterol LDL Cholesterol Direct HDL Cholesterol 25-OH Vitamin D Total PTH Intact Urine pH Urine WBC (Auto) Urine Creatinine Urine Total Protein Fluid Total Protein Vancomycin Trough Rheumatoid Factor Complement C4 Miscellaneous Test Crossmatch 10/02/16 10/02/16 10/02/16 10:30 10:50 10:50 WBC 14.7 H RBC 2.76 L Hgb 7.4 L Hct 23.6 L MCV MCH 27 L MCHC RDW 20.2 H Plt Count 79 L Lymph % (Auto) [place] % (Auto) Lymph # [place] # Baso # Seg Neutrophils % Seg Neuts % (Manual) 86.0 H Lymphocytes % (Manual) 6.0 L Monocytes % (Manual) Eosinophils % (Manual) Basophils % (Manual) Nucleated RBC % Seg Neutrophils # Seg Neutrophils # Man 12.6 H Lymphocytes # (Manual) 0.9 L Monocytes # (Manual) Eosinophils # (Manual) Basophils # (Manual) PT INR Fibrinogen dRVVT Confirm Interp Factor V Activity POC ABG pH 7.486 H POC ABG pCO2 30.1 L POC ABG pO2 108 H ABG pO2 ABG HCO3 ABG Base Excess ABG Hemoglobin Oxyhemoglobin Sodium 131 L Potassium 3.4 L Chloride 89.9 L Carbon Dioxide BUN 26 H Creatinine 2.6 H Glucose POC Glucose Lactic Acid Calcium 7.0 L Ionized Calcium Phosphorus Magnesium Direct Bilirubin AST ALT Alkaline Phosphatase Lactate Dehydrogenase Troponin T C-Reactive Protein Total Protein Albumin Prealbumin Triglycerides Cholesterol LDL Cholesterol Direct HDL Cholesterol 25-OH Vitamin D Total PTH Intact Urine pH Urine WBC (Auto) Urine Creatinine Urine Total Protein Fluid Total Protein Vancomycin Trough Rheumatoid Factor Complement C4 Miscellaneous Test Crossmatch 10/02/16 10/03/16 10/03/16 23:45 00:45 05:10 WBC 12.9 H RBC 2.77 L Hgb 7.6 L Hct 23.7 L MCV MCH 27 L MCHC RDW 19.7 H Plt Count 89 L Lymph % (Auto) [place] % (Auto) Lymph # [place] # Baso # Seg Neutrophils % Seg Neuts % (Manual) Lymphocytes % (Manual) 8.0 L Monocytes % (Manual) Eosinophils % (Manual) Basophils % (Manual) Nucleated RBC % Seg Neutrophils # 11.9 H Seg Neutrophils # Man Lymphocytes # (Manual) 1.0 L Monocytes # (Manual) Eosinophils # (Manual) Basophils # (Manual) PT INR Fibrinogen dRVVT Confirm Interp Factor V Activity POC ABG pH POC ABG pCO2 POC ABG pO2 ABG pO2 ABG HCO3 ABG Base Excess ABG Hemoglobin Oxyhemoglobin Sodium Potassium Chloride Carbon Dioxide BUN Creatinine Glucose POC Glucose 55 L 199 H Lactic Acid Calcium Ionized Calcium Phosphorus Magnesium Direct Bilirubin AST ALT Alkaline Phosphatase Lactate Dehydrogenase Troponin T C-Reactive Protein Total Protein Albumin Prealbumin Triglycerides Cholesterol LDL Cholesterol Direct HDL Cholesterol 25-OH Vitamin D Total PTH Intact Urine pH Urine WBC (Auto) Urine Creatinine Urine Total Protein Fluid Total Protein Vancomycin Trough Rheumatoid Factor Complement C4 Miscellaneous Test Crossmatch 10/03/16 10/03/16 10/03/16 05:10 12:14 13:18 WBC RBC Hgb Hct MCV MCH MCHC RDW Plt Count Lymph % (Auto) [place] % (Auto) Lymph # [place] # Baso # Seg Neutrophils % Seg Neuts % (Manual) Lymphocytes % (Manual) Monocytes % (Manual) Eosinophils % (Manual) Basophils % (Manual) Nucleated RBC % Seg Neutrophils # Seg Neutrophils # Man Lymphocytes # (Manual) Monocytes # (Manual) Eosinophils # (Manual) Basophils # (Manual) PT INR Fibrinogen dRVVT Confirm Interp Factor V Activity POC ABG pH POC ABG pCO2 POC ABG pO2 ABG pO2 ABG HCO3 ABG Base Excess ABG Hemoglobin Oxyhemoglobin Sodium 129 L Potassium 3.3 L Chloride 88.8 L Carbon Dioxide 20 L BUN 29 H Creatinine 2.8 H Glucose POC Glucose 68 L 127 H Lactic Acid Calcium 7.2 L Ionized Calcium Phosphorus Magnesium Direct Bilirubin AST ALT Alkaline Phosphatase Lactate Dehydrogenase Troponin T C-Reactive Protein Total Protein Albumin Prealbumin Triglycerides Cholesterol LDL Cholesterol Direct HDL Cholesterol 25-OH Vitamin D Total PTH Intact Urine pH Urine WBC (Auto) Urine Creatinine Urine Total Protein Fluid Total Protein Vancomycin Trough Rheumatoid Factor Complement C4 Miscellaneous Test Crossmatch 10/03/16 10/03/16 10/03/16 14:42 18:21 19:09 WBC RBC Hgb Hct MCV MCH MCHC RDW Plt Count Lymph % (Auto) [place] % (Auto) Lymph # [place] # Baso # Seg Neutrophils % Seg Neuts % (Manual) Lymphocytes % (Manual) Monocytes % (Manual) Eosinophils % (Manual) Basophils % (Manual) Nucleated RBC % Seg Neutrophils # Seg Neutrophils # Man Lymphocytes # (Manual) Monocytes # (Manual) Eosinophils # (Manual) Basophils # (Manual) PT INR Fibrinogen dRVVT Confirm Interp Factor V Activity POC ABG pH 7.499 H POC ABG pCO2 28.4 L POC ABG pO2 44 L ABG pO2 ABG HCO3 ABG Base Excess ABG Hemoglobin Oxyhemoglobin Sodium Potassium Chloride Carbon Dioxide BUN Creatinine Glucose POC Glucose 64 L 205 H Lactic Acid Calcium Ionized Calcium Phosphorus Magnesium Direct Bilirubin AST ALT Alkaline Phosphatase Lactate Dehydrogenase Troponin T C-Reactive Protein Total Protein Albumin Prealbumin Triglycerides Cholesterol LDL Cholesterol Direct HDL Cholesterol 25-OH Vitamin D Total PTH Intact Urine pH Urine WBC (Auto) Urine Creatinine Urine Total Protein Fluid Total Protein Vancomycin Trough Rheumatoid Factor Complement C4 Miscellaneous Test Crossmatch 10/03/16 10/04/16 10/04/16 23:33 04:18 06:30 WBC RBC 2.54 L Hgb 7.1 L Hct 21.7 L MCV MCH MCHC RDW 19.5 H Plt Count 76 L Lymph % (Auto) [place] % (Auto) Lymph # [place] # Baso # Seg Neutrophils % Seg Neuts % (Manual) 88.0 H Lymphocytes % (Manual) 6.0 L Monocytes % (Manual) Eosinophils % (Manual) Basophils % (Manual) Nucleated RBC % Seg Neutrophils # Seg Neutrophils # Man 8.8 H Lymphocytes # (Manual) 0.6 L Monocytes # (Manual) Eosinophils # (Manual) Basophils # (Manual) PT INR Fibrinogen dRVVT Confirm Interp Factor V Activity POC ABG pH 7.461 H POC ABG pCO2 33.6 L POC ABG pO2 211 H ABG pO2 ABG HCO3 ABG Base Excess ABG Hemoglobin Oxyhemoglobin Sodium Potassium Chloride Carbon Dioxide BUN Creatinine Glucose POC Glucose 136 H Lactic Acid Calcium Ionized Calcium Phosphorus Magnesium Direct Bilirubin AST ALT Alkaline Phosphatase Lactate Dehydrogenase Troponin T C-Reactive Protein Total Protein Albumin Prealbumin Triglycerides Cholesterol LDL Cholesterol Direct HDL Cholesterol 25-OH Vitamin D Total PTH Intact Urine pH Urine WBC (Auto) Urine Creatinine Urine Total Protein Fluid Total Protein Vancomycin Trough Rheumatoid Factor Complement C4 Miscellaneous Test Crossmatch 10/04/16 10/04/16 10/04/16 06:30 11:45 17:54 WBC RBC Hgb Hct MCV MCH MCHC RDW Plt Count Lymph % (Auto) [place] % (Auto) Lymph # [place] # Baso # Seg Neutrophils % Seg Neuts % (Manual) Lymphocytes % (Manual) Monocytes % (Manual) Eosinophils % (Manual) Basophils % (Manual) Nucleated RBC % Seg Neutrophils # Seg Neutrophils # Man Lymphocytes # (Manual) Monocytes # (Manual) Eosinophils # (Manual) Basophils # (Manual) PT INR Fibrinogen dRVVT Confirm Interp Factor V Activity POC ABG pH POC ABG pCO2 POC ABG pO2 ABG pO2 ABG HCO3 ABG Base Excess ABG Hemoglobin Oxyhemoglobin Sodium 128 L Potassium Chloride 87.4 L Carbon Dioxide 20 L BUN 34 H Creatinine 2.9 H Glucose 127 H POC Glucose 158 H 160 H Lactic Acid Calcium 7.4 L Ionized Calcium Phosphorus Magnesium Direct Bilirubin AST ALT Alkaline Phosphatase Lactate Dehydrogenase Troponin T C-Reactive Protein Total Protein Albumin Prealbumin Triglycerides Cholesterol LDL Cholesterol Direct HDL Cholesterol 25-OH Vitamin D Total PTH Intact Urine pH Urine WBC (Auto) Urine Creatinine Urine Total Protein Fluid Total Protein Vancomycin Trough Rheumatoid Factor Complement C4 Miscellaneous Test Crossmatch 10/04/16 10/05/16 10/05/16 23:25 04:30 05:00 WBC RBC 2.64 L Hgb 7.5 L Hct 22.6 L MCV MCH MCHC RDW 19.3 H Plt Count 80 L Lymph % (Auto) [place] % (Auto) Lymph # [place] # Baso # Seg Neutrophils % Seg Neuts % (Manual) Lymphocytes % (Manual) 12.0 L Monocytes % (Manual) Eosinophils % (Manual) Basophils % (Manual) Nucleated RBC % Seg Neutrophils # Seg Neutrophils # Man Lymphocytes # (Manual) Monocytes # (Manual) Eosinophils # (Manual) Basophils # (Manual) PT INR Fibrinogen dRVVT Confirm Interp Factor V Activity POC ABG pH 7.475 H POC ABG pCO2 33.3 L POC ABG pO2 140 H ABG pO2 ABG HCO3 ABG Base Excess ABG Hemoglobin Oxyhemoglobin Sodium Potassium Chloride Carbon Dioxide BUN Creatinine Glucose POC Glucose 141 H Lactic Acid Calcium Ionized Calcium Phosphorus Magnesium Direct Bilirubin AST ALT Alkaline Phosphatase Lactate Dehydrogenase Troponin T C-Reactive Protein Total Protein Albumin Prealbumin Triglycerides Cholesterol LDL Cholesterol Direct HDL Cholesterol 25-OH Vitamin D Total PTH Intact Urine pH Urine WBC (Auto) Urine Creatinine Urine Total Protein Fluid Total Protein Vancomycin Trough Rheumatoid Factor Complement C4 Miscellaneous Test Crossmatch 10/05/16 10/05/16 10/05/16 05:00 05:09 12:58 WBC RBC Hgb Hct MCV MCH MCHC RDW Plt Count Lymph % (Auto) [place] % (Auto) Lymph # [place] # Baso # Seg Neutrophils % Seg Neuts % (Manual) Lymphocytes % (Manual) Monocytes % (Manual) Eosinophils % (Manual) Basophils % (Manual) Nucleated RBC % Seg Neutrophils # Seg Neutrophils # Man Lymphocytes # (Manual) Monocytes # (Manual) Eosinophils # (Manual) Basophils # (Manual) PT INR Fibrinogen dRVVT Confirm Interp Factor V Activity POC ABG pH POC ABG pCO2 POC ABG pO2 ABG pO2 ABG HCO3 ABG Base Excess ABG Hemoglobin Oxyhemoglobin Sodium 131 L Potassium Chloride 94.0 L Carbon Dioxide 20 L BUN 22 H Creatinine 2.0 H Glucose 123 H POC Glucose 166 H 179 H Lactic Acid Calcium 7.7 L Ionized Calcium Phosphorus 2.20 L D Magnesium Direct Bilirubin AST ALT Alkaline Phosphatase Lactate Dehydrogenase Troponin T C-Reactive Protein Total Protein Albumin Prealbumin Triglycerides Cholesterol LDL Cholesterol Direct HDL Cholesterol 25-OH Vitamin D Total PTH Intact Urine pH Urine WBC (Auto) Urine Creatinine Urine Total Protein Fluid Total Protein Vancomycin Trough Rheumatoid Factor Complement C4 Miscellaneous Test Crossmatch 10/05/16 10/05/16 10/05/16 15:50 18:53 23:12 WBC RBC Hgb Hct MCV MCH MCHC RDW Plt Count Lymph % (Auto) [place] % (Auto) Lymph # [place] # Baso # Seg Neutrophils % Seg Neuts % (Manual) Lymphocytes % (Manual) Monocytes % (Manual) Eosinophils % (Manual) Basophils % (Manual) Nucleated RBC % Seg Neutrophils # Seg Neutrophils # Man Lymphocytes # (Manual) Monocytes # (Manual) Eosinophils # (Manual) Basophils # (Manual) PT INR Fibrinogen dRVVT Confirm Interp Factor V Activity POC ABG pH POC ABG pCO2 POC ABG pO2 ABG pO2 ABG HCO3 ABG Base Excess ABG Hemoglobin Oxyhemoglobin Sodium Potassium Chloride Carbon Dioxide BUN Creatinine Glucose POC Glucose 150 H 164 H Lactic Acid Calcium Ionized Calcium Phosphorus Magnesium Direct Bilirubin AST ALT Alkaline Phosphatase Lactate Dehydrogenase Troponin T C-Reactive Protein Total Protein Albumin Prealbumin Triglycerides Cholesterol LDL Cholesterol Direct HDL Cholesterol 25-OH Vitamin D Total PTH Intact Urine pH Urine WBC (Auto) Urine Creatinine Urine Total Protein Fluid Total Protein Vancomycin Trough Rheumatoid Factor Complement C4 Miscellaneous Test Crossmatch See Detail 10/06/16 10/06/16 10/06/16 03:50 03:50 04:53 WBC RBC 3.00 L Hgb 8.6 L Hct 25.8 L MCV MCH MCHC RDW 17.9 H Plt Count 65 L Lymph % (Auto) [place] % (Auto) Lymph # [place] # Baso # Seg Neutrophils % Seg Neuts % (Manual) 30.0 L Lymphocytes % (Manual) 5.0 L Monocytes % (Manual) Eosinophils % (Manual) Basophils % (Manual) Nucleated RBC % Seg Neutrophils # Seg Neutrophils # Man Lymphocytes # (Manual) 0.4 L Monocytes # (Manual) Eosinophils # (Manual) Basophils # (Manual) PT INR Fibrinogen dRVVT Confirm Interp Factor V Activity POC ABG pH 7.310 L POC ABG pCO2 49.0 H POC ABG pO2 ABG pO2 ABG HCO3 ABG Base Excess ABG Hemoglobin Oxyhemoglobin Sodium 133 L Potassium Chloride 95.9 L Carbon Dioxide BUN 26 H Creatinine 2.0 H Glucose 116 H POC Glucose Lactic Acid Calcium 7.8 L Ionized Calcium Phosphorus Magnesium Direct Bilirubin AST ALT Alkaline Phosphatase Lactate Dehydrogenase Troponin T C-Reactive Protein Total Protein Albumin Prealbumin Triglycerides Cholesterol LDL Cholesterol Direct HDL Cholesterol 25-OH Vitamin D Total PTH Intact Urine pH Urine WBC (Auto) Urine Creatinine Urine Total Protein Fluid Total Protein Vancomycin Trough Rheumatoid Factor Complement C4 Miscellaneous Test Crossmatch 10/06/16 10/06/16 10/06/16 05:23 11:52 18:34 WBC RBC Hgb Hct MCV MCH MCHC RDW Plt Count Lymph % (Auto) [place] % (Auto) Lymph # [place] # Baso # Seg Neutrophils % Seg Neuts % (Manual) Lymphocytes % (Manual) Monocytes % (Manual) Eosinophils % (Manual) Basophils % (Manual) Nucleated RBC % Seg Neutrophils # Seg Neutrophils # Man Lymphocytes # (Manual) Monocytes # (Manual) Eosinophils # (Manual) Basophils # (Manual) PT INR Fibrinogen dRVVT Confirm Interp Factor V Activity POC ABG pH POC ABG pCO2 POC ABG pO2 ABG pO2 ABG HCO3 ABG Base Excess ABG Hemoglobin Oxyhemoglobin Sodium Potassium Chloride Carbon Dioxide BUN Creatinine Glucose POC Glucose 126 H 116 H 129 H Lactic Acid Calcium Ionized Calcium Phosphorus Magnesium Direct Bilirubin AST ALT Alkaline Phosphatase Lactate Dehydrogenase Troponin T C-Reactive Protein Total Protein Albumin Prealbumin Triglycerides Cholesterol LDL Cholesterol Direct HDL Cholesterol 25-OH Vitamin D Total PTH Intact Urine pH Urine WBC (Auto) Urine Creatinine Urine Total Protein Fluid Total Protein Vancomycin Trough Rheumatoid Factor Complement C4 Miscellaneous Test Crossmatch 10/07/16 10/07/16 10/07/16 03:45 05:00 10:00 WBC 17.0 H RBC 2.68 L Hgb 7.3 L Hct 25.3 L MCV MCH 27 L MCHC 29 L RDW 19.6 H Plt Count 74 L Lymph % (Auto) [place] % (Auto) Lymph # [place] # Baso # Seg Neutrophils % Seg Neuts % (Manual) Lymphocytes % (Manual) 12.0 L Monocytes % (Manual) Eosinophils % (Manual) Basophils % (Manual) Nucleated RBC % 4.0 H Seg Neutrophils # Seg Neutrophils # Man 10.7 H Lymphocytes # (Manual) Monocytes # (Manual) Eosinophils # (Manual) Basophils # (Manual) PT INR Fibrinogen dRVVT Confirm Interp Factor V Activity POC ABG pH POC ABG pCO2 POC ABG pO2 ABG pO2 ABG HCO3 ABG Base Excess ABG Hemoglobin Oxyhemoglobin Sodium 130 L Potassium 3.2 L Chloride 93.9 L Carbon Dioxide 20 L BUN 44 H Creatinine 2.7 H Glucose 129 H POC Glucose Lactic Acid Calcium 7.4 L Ionized Calcium Phosphorus Magnesium Direct Bilirubin AST ALT 6 L Alkaline Phosphatase 195 H Lactate Dehydrogenase Troponin T C-Reactive Protein Total Protein 4.9 L Albumin 1.0 L Prealbumin Triglycerides Cholesterol LDL Cholesterol Direct HDL Cholesterol 25-OH Vitamin D Total PTH Intact Urine pH Urine WBC (Auto) Urine Creatinine Urine Total Protein Fluid Total Protein Vancomycin Trough Rheumatoid Factor Complement C4 Miscellaneous Test Flexitest 1 H Crossmatch 10/07/16 10/07/16 10/07/16 10:00 11:24 18:10 WBC RBC Hgb Hct MCV MCH MCHC RDW Plt Count Lymph % (Auto) [place] % (Auto) Lymph # [place] # Baso # Seg Neutrophils % Seg Neuts % (Manual) Lymphocytes % (Manual) Monocytes % (Manual) Eosinophils % (Manual) Basophils % (Manual) Nucleated RBC % Seg Neutrophils # Seg Neutrophils # Man Lymphocytes # (Manual) Monocytes # (Manual) Eosinophils # (Manual) Basophils # (Manual) PT INR Fibrinogen dRVVT Confirm Interp Factor V Activity POC ABG pH POC ABG pCO2 POC ABG pO2 ABG pO2 ABG HCO3 ABG Base Excess ABG Hemoglobin Oxyhemoglobin Sodium Potassium Chloride Carbon Dioxide BUN Creatinine Glucose POC Glucose 116 H 130 H Lactic Acid Calcium Ionized Calcium Phosphorus Magnesium Direct Bilirubin AST ALT Alkaline Phosphatase Lactate Dehydrogenase Troponin T C-Reactive Protein 19.40 H Total Protein Albumin Prealbumin Triglycerides Cholesterol LDL Cholesterol Direct HDL Cholesterol 25-OH Vitamin D Total PTH Intact Urine pH Urine WBC (Auto) Urine Creatinine Urine Total Protein Fluid Total Protein Vancomycin Trough Rheumatoid Factor Complement C4 Miscellaneous Test Crossmatch 10/07/16 10/08/16 10/08/16 18:30 00:00 04:00 WBC RBC Hgb Hct MCV MCH MCHC RDW Plt Count Lymph % (Auto) [place] % (Auto) Lymph # [place] # Baso # Seg Neutrophils % Seg Neuts % (Manual) Lymphocytes % (Manual) Monocytes % (Manual) Eosinophils % (Manual) Basophils % (Manual) Nucleated RBC % Seg Neutrophils # Seg Neutrophils # Man Lymphocytes # (Manual) Monocytes # (Manual) Eosinophils # (Manual) Basophils # (Manual) PT INR Fibrinogen dRVVT Confirm Interp Factor V Activity POC ABG pH POC ABG pCO2 POC ABG pO2 ABG pO2 ABG HCO3 ABG Base Excess ABG Hemoglobin Oxyhemoglobin Sodium 132 L Potassium 3.3 L Chloride 93.6 L Carbon Dioxide 17 L BUN 59 H Creatinine 2.7 H Glucose 121 H POC Glucose 122 H Lactic Acid Calcium 7.6 L Ionized Calcium Phosphorus Magnesium Direct Bilirubin AST ALT Alkaline Phosphatase Lactate Dehydrogenase Troponin T C-Reactive Protein Total Protein Albumin Prealbumin Triglycerides Cholesterol LDL Cholesterol Direct HDL Cholesterol 25-OH Vitamin D Total PTH Intact Urine pH Urine WBC (Auto) > 182.0 H Urine Creatinine Urine Total Protein Fluid Total Protein Vancomycin Trough Rheumatoid Factor Complement C4 Miscellaneous Test Crossmatch 10/08/16 10/08/16 10/08/16 04:30 05:30 11:51 WBC RBC 5.15 H Hgb 14.4 H D Hct 44.5 H D MCV MCH MCHC RDW 19.5 H Plt Count 56 L Lymph % (Auto) [place] % (Auto) Lymph # [place] # Baso # Seg Neutrophils % Seg Neuts % (Manual) 24.0 L Lymphocytes % (Manual) 8.0 L Monocytes % (Manual) Eosinophils % (Manual) Basophils % (Manual) Nucleated RBC % 9.0 H Seg Neutrophils # Seg Neutrophils # Man Lymphocytes # (Manual) 0.7 L Monocytes # (Manual) Eosinophils # (Manual) Basophils # (Manual) PT INR Fibrinogen dRVVT Confirm Interp Factor V Activity POC ABG pH POC ABG pCO2 POC ABG pO2 ABG pO2 ABG HCO3 ABG Base Excess ABG Hemoglobin Oxyhemoglobin Sodium Potassium Chloride Carbon Dioxide BUN Creatinine Glucose POC Glucose 125 H 150 H Lactic Acid Calcium Ionized Calcium Phosphorus Magnesium Direct Bilirubin AST ALT Alkaline Phosphatase Lactate Dehydrogenase Troponin T C-Reactive Protein Total Protein Albumin Prealbumin Triglycerides Cholesterol LDL Cholesterol Direct HDL Cholesterol 25-OH Vitamin D Total PTH Intact Urine pH Urine WBC (Auto) Urine Creatinine Urine Total Protein Fluid Total Protein Vancomycin Trough Rheumatoid Factor Complement C4 Miscellaneous Test Crossmatch 10/08/16 10/08/16 10/08/16 12:49 17:07 19:30 WBC RBC Hgb 7.1 L D Hct 22.4 L D MCV MCH MCHC RDW Plt Count Lymph % (Auto) [place] % (Auto) Lymph # [place] # Baso # Seg Neutrophils % Seg Neuts % (Manual) Lymphocytes % (Manual) Monocytes % (Manual) Eosinophils % (Manual) Basophils % (Manual) Nucleated RBC % Seg Neutrophils # Seg Neutrophils # Man Lymphocytes # (Manual) Monocytes # (Manual) Eosinophils # (Manual) Basophils # (Manual) PT INR Fibrinogen dRVVT Confirm Interp Factor V Activity POC ABG pH POC ABG pCO2 28.2 L POC ABG pO2 111 H ABG pO2 ABG HCO3 ABG Base Excess ABG Hemoglobin Oxyhemoglobin Sodium Potassium Chloride Carbon Dioxide BUN Creatinine Glucose POC Glucose 145 H Lactic Acid Calcium Ionized Calcium Phosphorus Magnesium Direct Bilirubin AST ALT Alkaline Phosphatase Lactate Dehydrogenase Troponin T C-Reactive Protein Total Protein Albumin Prealbumin Triglycerides Cholesterol LDL Cholesterol Direct HDL Cholesterol 25-OH Vitamin D Total PTH Intact Urine pH Urine WBC (Auto) Urine Creatinine Urine Total Protein Fluid Total Protein Vancomycin Trough Rheumatoid Factor Complement C4 Miscellaneous Test Crossmatch 10/08/16 10/09/16 10/09/16 19:30 03:45 03:45 WBC 12.6 H RBC 2.36 L Hgb 6.7 L Hct 21.1 L MCV MCH MCHC RDW 19.5 H Plt Count 75 L Lymph % (Auto) [place] % (Auto) Lymph # [place] # Baso # Seg Neutrophils % Seg Neuts % (Manual) Lymphocytes % (Manual) Monocytes % (Manual) 10.0 H Eosinophils % (Manual) Basophils % (Manual) Nucleated RBC % 3.0 H Seg Neutrophils # Seg Neutrophils # Man Lymphocytes # (Manual) Monocytes # (Manual) 1.3 H Eosinophils # (Manual) Basophils # (Manual) PT 18.0 H INR 1.41 H Fibrinogen dRVVT Confirm Interp Factor V Activity POC ABG pH POC ABG pCO2 POC ABG pO2 ABG pO2 ABG HCO3 ABG Base Excess ABG Hemoglobin Oxyhemoglobin Sodium 135 L Potassium Chloride Carbon Dioxide 17 L BUN 81 H Creatinine 3.2 H Glucose 109 H POC Glucose Lactic Acid Calcium 7.4 L Ionized Calcium Phosphorus 4.60 H D Magnesium Direct Bilirubin AST ALT Alkaline Phosphatase Lactate Dehydrogenase Troponin T C-Reactive Protein Total Protein Albumin Prealbumin Triglycerides Cholesterol LDL Cholesterol Direct HDL Cholesterol 25-OH Vitamin D Total PTH Intact Urine pH Urine WBC (Auto) Urine Creatinine Urine Total Protein Fluid Total Protein Vancomycin Trough Rheumatoid Factor Complement C4 Miscellaneous Test Crossmatch 10/09/16 10/09/16 10/09/16 03:45 05:14 07:20 WBC RBC Hgb Hct MCV MCH MCHC RDW Plt Count Lymph % (Auto) [place] % (Auto) Lymph # [place] # Baso # Seg Neutrophils % Seg Neuts % (Manual) Lymphocytes % (Manual) Monocytes % (Manual) Eosinophils % (Manual) Basophils % (Manual) Nucleated RBC % Seg Neutrophils # Seg Neutrophils # Man Lymphocytes # (Manual) Monocytes # (Manual) Eosinophils # (Manual) Basophils # (Manual) PT 19.0 H INR 1.51 H Fibrinogen dRVVT Confirm Interp Factor V Activity POC ABG pH POC ABG pCO2 POC ABG pO2 ABG pO2 ABG HCO3 ABG Base Excess ABG Hemoglobin Oxyhemoglobin Sodium Potassium Chloride Carbon Dioxide BUN Creatinine Glucose POC Glucose 151 H Lactic Acid Calcium Ionized Calcium Phosphorus Magnesium Direct Bilirubin AST ALT Alkaline Phosphatase Lactate Dehydrogenase Troponin T C-Reactive Protein Total Protein Albumin Prealbumin Triglycerides Cholesterol LDL Cholesterol Direct HDL Cholesterol 25-OH Vitamin D Total PTH Intact Urine pH Urine WBC (Auto) Urine Creatinine Urine Total Protein Fluid Total Protein Vancomycin Trough Rheumatoid Factor Complement C4 Miscellaneous Test Crossmatch See Detail 10/09/16 10/09/16 10/09/16 11:46 16:20 16:43 WBC RBC Hgb 7.2 L Hct 22.2 L MCV MCH MCHC RDW Plt Count Lymph % (Auto) [place] % (Auto) Lymph # [place] # Baso # Seg Neutrophils % Seg Neuts % (Manual) Lymphocytes % (Manual) Monocytes % (Manual) Eosinophils % (Manual) Basophils % (Manual) Nucleated RBC % Seg Neutrophils # Seg Neutrophils # Man Lymphocytes # (Manual) Monocytes # (Manual) Eosinophils # (Manual) Basophils # (Manual) PT INR Fibrinogen dRVVT Confirm Interp Factor V Activity POC ABG pH POC ABG pCO2 POC ABG pO2 ABG pO2 ABG HCO3 ABG Base Excess ABG Hemoglobin Oxyhemoglobin Sodium Potassium Chloride Carbon Dioxide BUN Creatinine Glucose POC Glucose 133 H 141 H Lactic Acid Calcium Ionized Calcium Phosphorus Magnesium Direct Bilirubin AST ALT Alkaline Phosphatase Lactate Dehydrogenase Troponin T C-Reactive Protein Total Protein Albumin Prealbumin Triglycerides Cholesterol LDL Cholesterol Direct HDL Cholesterol 25-OH Vitamin D Total PTH Intact Urine pH Urine WBC (Auto) Urine Creatinine Urine Total Protein Fluid Total Protein Vancomycin Trough Rheumatoid Factor Complement C4 Miscellaneous Test Crossmatch 10/10/16 10/10/16 10/10/16 05:00 05:00 11:19 WBC 18.5 H RBC 2.19 L Hgb 6.4 L Hct 19.6 L* MCV MCH MCHC RDW 19.3 H Plt Count 93 L Lymph % (Auto) [place] % (Auto) Lymph # [place] # Baso # Seg Neutrophils % Seg Neuts % (Manual) Lymphocytes % (Manual) 10.0 L Monocytes % (Manual) Eosinophils % (Manual) Basophils % (Manual) Nucleated RBC % 4.0 H Seg Neutrophils # Seg Neutrophils # Man 11.3 H Lymphocytes # (Manual) Monocytes # (Manual) Eosinophils # (Manual) Basophils # (Manual) PT INR Fibrinogen dRVVT Confirm Interp Factor V Activity POC ABG pH POC ABG pCO2 POC ABG pO2 ABG pO2 ABG HCO3 ABG Base Excess ABG Hemoglobin Oxyhemoglobin Sodium Potassium 5.7 H D Chloride Carbon Dioxide 16 L BUN 94 H Creatinine 3.1 H Glucose 131 H POC Glucose 153 H Lactic Acid Calcium 8.2 L Ionized Calcium Phosphorus 5.10 H Magnesium 2.40 H Direct Bilirubin 0.3 H AST ALT < 5 L Alkaline Phosphatase 319 H Lactate Dehydrogenase Troponin T C-Reactive Protein Total Protein 5.1 L Albumin 1.0 L Prealbumin Triglycerides Cholesterol LDL Cholesterol Direct HDL Cholesterol 25-OH Vitamin D Total PTH Intact Urine pH Urine WBC (Auto) Urine Creatinine Urine Total Protein Fluid Total Protein Vancomycin Trough Rheumatoid Factor Complement C4 Miscellaneous Test Crossmatch 10/10/16 10/10/16 10/11/16 17:50 23:30 04:15 WBC RBC Hgb Hct MCV MCH MCHC RDW Plt Count Lymph % (Auto) [place] % (Auto) Lymph # [place] # Baso # Seg Neutrophils % Seg Neuts % (Manual) Lymphocytes % (Manual) Monocytes % (Manual) Eosinophils % (Manual) Basophils % (Manual) Nucleated RBC % Seg Neutrophils # Seg Neutrophils # Man Lymphocytes # (Manual) Monocytes # (Manual) Eosinophils # (Manual) Basophils # (Manual) PT INR Fibrinogen dRVVT Confirm Interp Factor V Activity POC ABG pH POC ABG pCO2 POC ABG pO2 ABG pO2 ABG HCO3 ABG Base Excess ABG Hemoglobin Oxyhemoglobin Sodium Potassium Chloride 96.4 L Carbon Dioxide 21 L BUN 57 H Creatinine 2.1 H Glucose 151 H POC Glucose 146 H 141 H Lactic Acid Calcium 8.3 L Ionized Calcium Phosphorus Magnesium Direct Bilirubin AST ALT Alkaline Phosphatase Lactate Dehydrogenase Troponin T C-Reactive Protein Total Protein Albumin Prealbumin Triglycerides Cholesterol LDL Cholesterol Direct HDL Cholesterol 25-OH Vitamin D Total PTH Intact Urine pH Urine WBC (Auto) Urine Creatinine Urine Total Protein Fluid Total Protein Vancomycin Trough Rheumatoid Factor Complement C4 Miscellaneous Test Crossmatch 10/11/16 10/11/16 10/11/16 04:15 04:15 05:30 WBC 28.3 H RBC 3.12 L Hgb 9.3 L Hct 28.7 L D MCV MCH MCHC RDW 17.7 H Plt Count 128 L Lymph % (Auto) [place] % (Auto) Lymph # [place] # Baso # Seg Neutrophils % Seg Neuts % (Manual) Lymphocytes % (Manual) Monocytes % (Manual) Eosinophils % (Manual) Basophils % (Manual) Nucleated RBC % Seg Neutrophils # Seg Neutrophils # Man Lymphocytes # (Manual) Monocytes # (Manual) Eosinophils # (Manual) Basophils # (Manual) PT INR Fibrinogen dRVVT Confirm Interp Factor V Activity POC ABG pH POC ABG pCO2 POC ABG pO2 ABG pO2 ABG HCO3 ABG Base Excess ABG Hemoglobin Oxyhemoglobin Sodium Potassium Chloride Carbon Dioxide BUN Creatinine Glucose POC Glucose 167 H Lactic Acid Calcium Ionized Calcium Phosphorus Magnesium Direct Bilirubin AST ALT Alkaline Phosphatase Lactate Dehydrogenase Troponin T C-Reactive Protein 15.80 H Total Protein Albumin Prealbumin Triglycerides Cholesterol LDL Cholesterol Direct HDL Cholesterol 25-OH Vitamin D Total PTH Intact Urine pH Urine WBC (Auto) Urine Creatinine Urine Total Protein Fluid Total Protein Vancomycin Trough Rheumatoid Factor Complement C4 Miscellaneous Test Crossmatch 10/11/16 10/11/16 10/11/16 11:40 15:49 23:57 WBC RBC Hgb Hct MCV MCH MCHC RDW Plt Count Lymph % (Auto) [place] % (Auto) Lymph # [place] # Baso # Seg Neutrophils % Seg Neuts % (Manual) Lymphocytes % (Manual) Monocytes % (Manual) Eosinophils % (Manual) Basophils % (Manual) Nucleated RBC % Seg Neutrophils # Seg Neutrophils # Man Lymphocytes # (Manual) Monocytes # (Manual) Eosinophils # (Manual) Basophils # (Manual) PT INR Fibrinogen dRVVT Confirm Interp Factor V Activity POC ABG pH POC ABG pCO2 POC ABG pO2 ABG pO2 ABG HCO3 ABG Base Excess ABG Hemoglobin Oxyhemoglobin Sodium Potassium Chloride Carbon Dioxide BUN Creatinine Glucose POC Glucose 139 H 168 H 161 H Lactic Acid Calcium Ionized Calcium Phosphorus Magnesium Direct Bilirubin AST ALT Alkaline Phosphatase Lactate Dehydrogenase Troponin T C-Reactive Protein Total Protein Albumin Prealbumin Triglycerides Cholesterol LDL Cholesterol Direct HDL Cholesterol 25-OH Vitamin D Total PTH Intact Urine pH Urine WBC (Auto) Urine Creatinine Urine Total Protein Fluid Total Protein Vancomycin Trough Rheumatoid Factor Complement C4 Miscellaneous Test Crossmatch 10/12/16 10/12/16 10/12/16 04:40 04:40 05:44 WBC 22.5 H RBC 2.88 L Hgb 8.8 L Hct 26.8 L MCV MCH MCHC RDW 17.8 H Plt Count Lymph % (Auto) [place] % (Auto) Lymph # [place] # Baso # Seg Neutrophils % Seg Neuts % (Manual) Lymphocytes % (Manual) Monocytes % (Manual) Eosinophils % (Manual) Basophils % (Manual) Nucleated RBC % Seg Neutrophils # Seg Neutrophils # Man Lymphocytes # (Manual) Monocytes # (Manual) Eosinophils # (Manual) Basophils # (Manual) PT INR Fibrinogen dRVVT Confirm Interp Factor V Activity POC ABG pH POC ABG pCO2 POC ABG pO2 ABG pO2 ABG HCO3 ABG Base Excess ABG Hemoglobin Oxyhemoglobin Sodium 134 L Potassium Chloride 93.0 L Carbon Dioxide BUN 74 H Creatinine 2.5 H Glucose 137 H POC Glucose 158 H Lactic Acid Calcium 8.2 L Ionized Calcium Phosphorus Magnesium Direct Bilirubin AST ALT Alkaline Phosphatase Lactate Dehydrogenase Troponin T C-Reactive Protein Total Protein Albumin Prealbumin Triglycerides Cholesterol LDL Cholesterol Direct HDL Cholesterol 25-OH Vitamin D Total PTH Intact Urine pH Urine WBC (Auto) Urine Creatinine Urine Total Protein Fluid Total Protein Vancomycin Trough Rheumatoid Factor Complement C4 Miscellaneous Test Crossmatch 10/12/16 10/12/16 10/12/16 12:27 18:18 23:46 WBC RBC Hgb Hct MCV MCH MCHC RDW Plt Count Lymph % (Auto) [place] % (Auto) Lymph # [place] # Baso # Seg Neutrophils % Seg Neuts % (Manual) Lymphocytes % (Manual) Monocytes % (Manual) Eosinophils % (Manual) Basophils % (Manual) Nucleated RBC % Seg Neutrophils # Seg Neutrophils # Man Lymphocytes # (Manual) Monocytes # (Manual) Eosinophils # (Manual) Basophils # (Manual) PT INR Fibrinogen dRVVT Confirm Interp Factor V Activity POC ABG pH POC ABG pCO2 POC ABG pO2 ABG pO2 ABG HCO3 ABG Base Excess ABG Hemoglobin Oxyhemoglobin Sodium Potassium Chloride Carbon Dioxide BUN Creatinine Glucose POC Glucose 153 H 140 H 150 H Lactic Acid Calcium Ionized Calcium Phosphorus Magnesium Direct Bilirubin AST ALT Alkaline Phosphatase Lactate Dehydrogenase Troponin T C-Reactive Protein Total Protein Albumin Prealbumin Triglycerides Cholesterol LDL Cholesterol Direct HDL Cholesterol 25-OH Vitamin D Total PTH Intact Urine pH Urine WBC (Auto) Urine Creatinine Urine Total Protein Fluid Total Protein Vancomycin Trough Rheumatoid Factor Complement C4 Miscellaneous Test Crossmatch 10/13/16 10/13/16 10/13/16 06:22 09:20 12:29 WBC RBC Hgb Hct MCV MCH MCHC RDW Plt Count Lymph % (Auto) [place] % (Auto) Lymph # [place] # Baso # Seg Neutrophils % Seg Neuts % (Manual) Lymphocytes % (Manual) Monocytes % (Manual) Eosinophils % (Manual) Basophils % (Manual) Nucleated RBC % Seg Neutrophils # Seg Neutrophils # Man Lymphocytes # (Manual) Monocytes # (Manual) Eosinophils # (Manual) Basophils # (Manual) PT INR Fibrinogen dRVVT Confirm Interp Factor V Activity POC ABG pH POC ABG pCO2 POC ABG pO2 ABG pO2 ABG HCO3 ABG Base Excess ABG Hemoglobin Oxyhemoglobin Sodium Potassium Chloride Carbon Dioxide BUN Creatinine Glucose POC Glucose 165 H 193 H Lactic Acid Calcium Ionized Calcium Phosphorus Magnesium Direct Bilirubin AST ALT Alkaline Phosphatase Lactate Dehydrogenase Troponin T C-Reactive Protein Total Protein Albumin Prealbumin Triglycerides Cholesterol LDL Cholesterol Direct HDL Cholesterol 25-OH Vitamin D Total PTH Intact Urine pH Urine WBC (Auto) Urine Creatinine Urine Total Protein Fluid Total Protein Vancomycin Trough Rheumatoid Factor Complement C4 Miscellaneous Test Flexitest 1 H Crossmatch 10/13/16 10/13/16 10/13/16 18:09 Unknown Unknown WBC 23.4 H RBC 2.83 L Hgb 8.7 L Hct 26.1 L MCV MCH MCHC RDW 18.1 H Plt Count Lymph % (Auto) [place] % (Auto) Lymph # [place] # Baso # Seg Neutrophils % Seg Neuts % (Manual) Lymphocytes % (Manual) Monocytes % (Manual) Eosinophils % (Manual) Basophils % (Manual) Nucleated RBC % Seg Neutrophils # Seg Neutrophils # Man Lymphocytes # (Manual) Monocytes # (Manual) Eosinophils # (Manual) Basophils # (Manual) PT INR Fibrinogen dRVVT Confirm Interp Factor V Activity POC ABG pH POC ABG pCO2 POC ABG pO2 ABG pO2 ABG HCO3 ABG Base Excess ABG Hemoglobin Oxyhemoglobin Sodium Potassium Chloride 95.8 L Carbon Dioxide BUN 82 H Creatinine 2.6 H Glucose 152 H POC Glucose 166 H Lactic Acid Calcium Ionized Calcium Phosphorus Magnesium Direct Bilirubin AST ALT Alkaline Phosphatase Lactate Dehydrogenase Troponin T C-Reactive Protein Total Protein Albumin Prealbumin Triglycerides Cholesterol LDL Cholesterol Direct HDL Cholesterol 25-OH Vitamin D Total PTH Intact Urine pH Urine WBC (Auto) Urine Creatinine Urine Total Protein Fluid Total Protein Vancomycin Trough Rheumatoid Factor Complement C4 Miscellaneous Test Crossmatch 10/14/16 10/14/16 10/14/16 05:38 06:35 08:10 WBC 20.7 H RBC 2.81 L Hgb 8.4 L Hct 27.2 L MCV MCH MCHC RDW 19.4 H Plt Count Lymph % (Auto) [place] % (Auto) Lymph # [place] # Baso # Seg Neutrophils % Seg Neuts % (Manual) Lymphocytes % (Manual) Monocytes % (Manual) Eosinophils % (Manual) Basophils % (Manual) Nucleated RBC % Seg Neutrophils # Seg Neutrophils # Man Lymphocytes # (Manual) Monocytes # (Manual) Eosinophils # (Manual) Basophils # (Manual) PT INR Fibrinogen dRVVT Confirm Interp Factor V Activity POC ABG pH POC ABG pCO2 POC ABG pO2 ABG pO2 ABG HCO3 ABG Base Excess ABG Hemoglobin Oxyhemoglobin Sodium Potassium Chloride Carbon Dioxide BUN 58 H Creatinine 1.9 H Glucose 169 H POC Glucose 195 H Lactic Acid Calcium Ionized Calcium Phosphorus Magnesium Direct Bilirubin AST ALT Alkaline Phosphatase Lactate Dehydrogenase Troponin T C-Reactive Protein Total Protein Albumin Prealbumin Triglycerides Cholesterol LDL Cholesterol Direct HDL Cholesterol 25-OH Vitamin D Total PTH Intact Urine pH Urine WBC (Auto) Urine Creatinine Urine Total Protein Fluid Total Protein Vancomycin Trough Rheumatoid Factor Complement C4 Miscellaneous Test Crossmatch 10/14/16 10/14/16 10/14/16 11:44 17:13 23:28 WBC RBC Hgb Hct MCV MCH MCHC RDW Plt Count Lymph % (Auto) [place] % (Auto) Lymph # [place] # Baso # Seg Neutrophils % Seg Neuts % (Manual) Lymphocytes % (Manual) Monocytes % (Manual) Eosinophils % (Manual) Basophils % (Manual) Nucleated RBC % Seg Neutrophils # Seg Neutrophils # Man Lymphocytes # (Manual) Monocytes # (Manual) Eosinophils # (Manual) Basophils # (Manual) PT INR Fibrinogen dRVVT Confirm Interp Factor V Activity POC ABG pH POC ABG pCO2 POC ABG pO2 ABG pO2 ABG HCO3 ABG Base Excess ABG Hemoglobin Oxyhemoglobin Sodium Potassium Chloride Carbon Dioxide BUN Creatinine Glucose POC Glucose 174 H 121 H 151 H Lactic Acid Calcium Ionized Calcium Phosphorus Magnesium Direct Bilirubin AST ALT Alkaline Phosphatase Lactate Dehydrogenase Troponin T C-Reactive Protein Total Protein Albumin Prealbumin Triglycerides Cholesterol LDL Cholesterol Direct HDL Cholesterol 25-OH Vitamin D Total PTH Intact Urine pH Urine WBC (Auto) Urine Creatinine Urine Total Protein Fluid Total Protein Vancomycin Trough Rheumatoid Factor Complement C4 Miscellaneous Test Crossmatch 10/15/16 10/15/16 10/15/16 05:06 12:26 17:48 WBC RBC Hgb Hct MCV MCH MCHC RDW Plt Count Lymph % (Auto) [place] % (Auto) Lymph # [place] # Baso # Seg Neutrophils % Seg Neuts % (Manual) Lymphocytes % (Manual) Monocytes % (Manual) Eosinophils % (Manual) Basophils % (Manual) Nucleated RBC % Seg Neutrophils # Seg Neutrophils # Man Lymphocytes # (Manual) Monocytes # (Manual) Eosinophils # (Manual) Basophils # (Manual) PT INR Fibrinogen dRVVT Confirm Interp Factor V Activity POC ABG pH POC ABG pCO2 POC ABG pO2 ABG pO2 ABG HCO3 ABG Base Excess ABG Hemoglobin Oxyhemoglobin Sodium Potassium Chloride Carbon Dioxide BUN Creatinine Glucose POC Glucose 151 H 149 H 153 H Lactic Acid Calcium Ionized Calcium Phosphorus Magnesium Direct Bilirubin AST ALT Alkaline Phosphatase Lactate Dehydrogenase Troponin T C-Reactive Protein Total Protein Albumin Prealbumin Triglycerides Cholesterol LDL Cholesterol Direct HDL Cholesterol 25-OH Vitamin D Total PTH Intact Urine pH Urine WBC (Auto) Urine Creatinine Urine Total Protein Fluid Total Protein Vancomycin Trough Rheumatoid Factor Complement C4 Miscellaneous Test Crossmatch 10/15/16 10/15/16 10/16/16 Unknown Unknown 00:02 WBC 23.4 H RBC 2.78 L Hgb 8.5 L Hct 25.7 L MCV MCH MCHC RDW 18.7 H Plt Count Lymph % (Auto) [place] % (Auto) Lymph # [place] # Baso # Seg Neutrophils % Seg Neuts % (Manual) Lymphocytes % (Manual) Monocytes % (Manual) Eosinophils % (Manual) Basophils % (Manual) Nucleated RBC % Seg Neutrophils # Seg Neutrophils # Man Lymphocytes # (Manual) Monocytes # (Manual) Eosinophils # (Manual) Basophils # (Manual) PT INR Fibrinogen dRVVT Confirm Interp Factor V Activity POC ABG pH POC ABG pCO2 POC ABG pO2 ABG pO2 ABG HCO3 ABG Base Excess ABG Hemoglobin Oxyhemoglobin Sodium Potassium Chloride Carbon Dioxide BUN 73 H Creatinine 2.3 H Glucose 120 H POC Glucose 137 H Lactic Acid Calcium Ionized Calcium Phosphorus Magnesium Direct Bilirubin AST ALT Alkaline Phosphatase Lactate Dehydrogenase Troponin T C-Reactive Protein Total Protein Albumin Prealbumin Triglycerides Cholesterol LDL Cholesterol Direct HDL Cholesterol 25-OH Vitamin D Total PTH Intact Urine pH Urine WBC (Auto) Urine Creatinine Urine Total Protein Fluid Total Protein Vancomycin Trough Rheumatoid Factor Complement C4 Miscellaneous Test Crossmatch 10/16/16 10/16/16 10/16/16 05:44 06:25 06:25 WBC 22.5 H RBC 2.76 L Hgb 8.3 L Hct 25.2 L MCV MCH MCHC RDW 18.3 H Plt Count Lymph % (Auto) [place] % (Auto) Lymph # [place] # Baso # Seg Neutrophils % Seg Neuts % (Manual) Lymphocytes % (Manual) Monocytes % (Manual) Eosinophils % (Manual) Basophils % (Manual) Nucleated RBC % Seg Neutrophils # Seg Neutrophils # Man Lymphocytes # (Manual) Monocytes # (Manual) Eosinophils # (Manual) Basophils # (Manual) PT INR Fibrinogen dRVVT Confirm Interp Factor V Activity POC ABG pH POC ABG pCO2 POC ABG pO2 ABG pO2 ABG HCO3 ABG Base Excess ABG Hemoglobin Oxyhemoglobin Sodium Potassium Chloride Carbon Dioxide BUN 92 H Creatinine 3.0 H Glucose 138 H POC Glucose 110 H Lactic Acid Calcium Ionized Calcium Phosphorus Magnesium Direct Bilirubin AST ALT Alkaline Phosphatase Lactate Dehydrogenase Troponin T C-Reactive Protein Total Protein Albumin Prealbumin Triglycerides Cholesterol LDL Cholesterol Direct HDL Cholesterol 25-OH Vitamin D Total PTH Intact Urine pH Urine WBC (Auto) Urine Creatinine Urine Total Protein Fluid Total Protein Vancomycin Trough Rheumatoid Factor Complement C4 Miscellaneous Test Crossmatch 10/16/16 10/16/16 10/16/16 11:27 11:48 17:36 WBC RBC Hgb Hct MCV MCH MCHC RDW Plt Count Lymph % (Auto) [place] % (Auto) Lymph # [place] # Baso # Seg Neutrophils % Seg Neuts % (Manual) Lymphocytes % (Manual) Monocytes % (Manual) Eosinophils % (Manual) Basophils % (Manual) Nucleated RBC % Seg Neutrophils # Seg Neutrophils # Man Lymphocytes # (Manual) Monocytes # (Manual) Eosinophils # (Manual) Basophils # (Manual) PT INR Fibrinogen dRVVT Confirm Interp Factor V Activity POC ABG pH 7.582 H POC ABG pCO2 27.4 L POC ABG pO2 110 H ABG pO2 ABG HCO3 ABG Base Excess ABG Hemoglobin Oxyhemoglobin Sodium Potassium Chloride Carbon Dioxide BUN Creatinine Glucose POC Glucose 121 H 133 H Lactic Acid Calcium Ionized Calcium Phosphorus Magnesium Direct Bilirubin AST ALT Alkaline Phosphatase Lactate Dehydrogenase Troponin T C-Reactive Protein Total Protein Albumin Prealbumin Triglycerides Cholesterol LDL Cholesterol Direct HDL Cholesterol 25-OH Vitamin D Total PTH Intact Urine pH Urine WBC (Auto) Urine Creatinine Urine Total Protein Fluid Total Protein Vancomycin Trough Rheumatoid Factor Complement C4 Miscellaneous Test Crossmatch 10/16/16 10/17/16 10/17/16 20:48 04:24 04:24 WBC 21.4 H RBC 2.72 L Hgb 8.0 L Hct 25.2 L MCV MCH MCHC RDW 18.0 H Plt Count Lymph % (Auto) [place] % (Auto) Lymph # [place] # Baso # Seg Neutrophils % Seg Neuts % (Manual) Lymphocytes % (Manual) Monocytes % (Manual) Eosinophils % (Manual) Basophils % (Manual) Nucleated RBC % Seg Neutrophils # Seg Neutrophils # Man Lymphocytes # (Manual) Monocytes # (Manual) Eosinophils # (Manual) Basophils # (Manual) PT INR Fibrinogen dRVVT Confirm Interp Factor V Activity POC ABG pH 7.561 H POC ABG pCO2 24.4 L POC ABG pO2 77 L ABG pO2 ABG HCO3 ABG Base Excess ABG Hemoglobin Oxyhemoglobin Sodium 148 H Potassium Chloride Carbon Dioxide BUN 104 H Creatinine 3.0 H Glucose 149 H POC Glucose Lactic Acid Calcium Ionized Calcium Phosphorus Magnesium Direct Bilirubin AST ALT Alkaline Phosphatase 138 H Lactate Dehydrogenase Troponin T C-Reactive Protein Total Protein 6.2 L Albumin 1.5 L Prealbumin Triglycerides Cholesterol LDL Cholesterol Direct HDL Cholesterol 25-OH Vitamin D Total PTH Intact Urine pH Urine WBC (Auto) Urine Creatinine Urine Total Protein Fluid Total Protein Vancomycin Trough Rheumatoid Factor Complement C4 Miscellaneous Test Crossmatch 10/17/16 10/17/16 10/17/16 06:02 12:17 17:14 WBC RBC Hgb Hct MCV MCH MCHC RDW Plt Count Lymph % (Auto) [place] % (Auto) Lymph # [place] # Baso # Seg Neutrophils % Seg Neuts % (Manual) Lymphocytes % (Manual) Monocytes % (Manual) Eosinophils % (Manual) Basophils % (Manual) Nucleated RBC % Seg Neutrophils # Seg Neutrophils # Man Lymphocytes # (Manual) Monocytes # (Manual) Eosinophils # (Manual) Basophils # (Manual) PT INR Fibrinogen dRVVT Confirm Interp Factor V Activity POC ABG pH POC ABG pCO2 POC ABG pO2 ABG pO2 ABG HCO3 ABG Base Excess ABG Hemoglobin Oxyhemoglobin Sodium Potassium Chloride Carbon Dioxide BUN Creatinine Glucose POC Glucose 170 H 167 H 126 H Lactic Acid Calcium Ionized Calcium Phosphorus Magnesium Direct Bilirubin AST ALT Alkaline Phosphatase Lactate Dehydrogenase Troponin T C-Reactive Protein Total Protein Albumin Prealbumin Triglycerides Cholesterol LDL Cholesterol Direct HDL Cholesterol 25-OH Vitamin D Total PTH Intact Urine pH Urine WBC (Auto) Urine Creatinine Urine Total Protein Fluid Total Protein Vancomycin Trough Rheumatoid Factor Complement C4 Miscellaneous Test Crossmatch 10/17/16 10/18/16 10/18/16 23:17 04:00 04:00 WBC 20.7 H RBC 2.47 L Hgb 7.4 L Hct 22.9 L MCV MCH MCHC RDW 17.5 H Plt Count Lymph % (Auto) [place] % (Auto) Lymph # [place] # Baso # Seg Neutrophils % Seg Neuts % (Manual) Lymphocytes % (Manual) Monocytes % (Manual) Eosinophils % (Manual) Basophils % (Manual) Nucleated RBC % Seg Neutrophils # Seg Neutrophils # Man Lymphocytes # (Manual) Monocytes # (Manual) Eosinophils # (Manual) Basophils # (Manual) PT INR Fibrinogen dRVVT Confirm Interp Factor V Activity POC ABG pH POC ABG pCO2 POC ABG pO2 ABG pO2 ABG HCO3 ABG Base Excess ABG Hemoglobin Oxyhemoglobin Sodium 149 H Potassium Chloride 107.9 H Carbon Dioxide 20 L BUN 117 H Creatinine 3.2 H Glucose 119 H POC Glucose 121 H Lactic Acid Calcium Ionized Calcium Phosphorus Magnesium Direct Bilirubin AST ALT Alkaline Phosphatase Lactate Dehydrogenase Troponin T C-Reactive Protein Total Protein Albumin Prealbumin Triglycerides Cholesterol LDL Cholesterol Direct HDL Cholesterol 25-OH Vitamin D Total PTH Intact Urine pH Urine WBC (Auto) Urine Creatinine Urine Total Protein Fluid Total Protein Vancomycin Trough Rheumatoid Factor Complement C4 Miscellaneous Test Crossmatch 10/18/16 10/18/16 10/18/16 05:23 10:46 17:30 WBC RBC Hgb Hct MCV MCH MCHC RDW Plt Count Lymph % (Auto) [place] % (Auto) Lymph # [place] # Baso # Seg Neutrophils % Seg Neuts % (Manual) Lymphocytes % (Manual) Monocytes % (Manual) Eosinophils % (Manual) Basophils % (Manual) Nucleated RBC % Seg Neutrophils # Seg Neutrophils # Man Lymphocytes # (Manual) Monocytes # (Manual) Eosinophils # (Manual) Basophils # (Manual) PT INR Fibrinogen dRVVT Confirm Interp Factor V Activity POC ABG pH POC ABG pCO2 POC ABG pO2 ABG pO2 ABG HCO3 ABG Base Excess ABG Hemoglobin Oxyhemoglobin Sodium Potassium Chloride Carbon Dioxide BUN Creatinine Glucose POC Glucose 119 H 155 H 124 H Lactic Acid Calcium Ionized Calcium Phosphorus Magnesium Direct Bilirubin AST ALT Alkaline Phosphatase Lactate Dehydrogenase Troponin T C-Reactive Protein Total Protein Albumin Prealbumin Triglycerides Cholesterol LDL Cholesterol Direct HDL Cholesterol 25-OH Vitamin D Total PTH Intact Urine pH Urine WBC (Auto) Urine Creatinine Urine Total Protein Fluid Total Protein Vancomycin Trough Rheumatoid Factor Complement C4 Miscellaneous Test Crossmatch 10/19/16 10/19/16 10/19/16 04:00 04:00 05:25 WBC 17.4 H RBC 2.54 L Hgb 7.7 L Hct 23.6 L MCV MCH MCHC RDW 17.3 H Plt Count Lymph % (Auto) [place] % (Auto) Lymph # [place] # Baso # Seg Neutrophils % Seg Neuts % (Manual) Lymphocytes % (Manual) Monocytes % (Manual) Eosinophils % (Manual) Basophils % (Manual) Nucleated RBC % Seg Neutrophils # Seg Neutrophils # Man Lymphocytes # (Manual) Monocytes # (Manual) Eosinophils # (Manual) Basophils # (Manual) PT INR Fibrinogen dRVVT Confirm Interp Factor V Activity POC ABG pH POC ABG pCO2 POC ABG pO2 ABG pO2 ABG HCO3 ABG Base Excess ABG Hemoglobin Oxyhemoglobin Sodium Potassium Chloride Carbon Dioxide BUN 72 H Creatinine 2.1 H Glucose 116 H POC Glucose 119 H Lactic Acid Calcium Ionized Calcium Phosphorus Magnesium Direct Bilirubin AST ALT Alkaline Phosphatase Lactate Dehydrogenase Troponin T C-Reactive Protein Total Protein Albumin Prealbumin Triglycerides Cholesterol LDL Cholesterol Direct HDL Cholesterol 25-OH Vitamin D Total PTH Intact Urine pH Urine WBC (Auto) Urine Creatinine Urine Total Protein Fluid Total Protein Vancomycin Trough Rheumatoid Factor Complement C4 Miscellaneous Test Crossmatch 10/19/16 10/19/16 10/20/16 11:46 23:59 06:00 WBC RBC Hgb Hct MCV MCH MCHC RDW Plt Count Lymph % (Auto) [place] % (Auto) Lymph # [place] # Baso # Seg Neutrophils % Seg Neuts % (Manual) Lymphocytes % (Manual) Monocytes % (Manual) Eosinophils % (Manual) Basophils % (Manual) Nucleated RBC % Seg Neutrophils # Seg Neutrophils # Man Lymphocytes # (Manual) Monocytes # (Manual) Eosinophils # (Manual) Basophils # (Manual) PT INR Fibrinogen dRVVT Confirm Interp Factor V Activity POC ABG pH POC ABG pCO2 POC ABG pO2 ABG pO2 ABG HCO3 ABG Base Excess ABG Hemoglobin Oxyhemoglobin Sodium Potassium Chloride Carbon Dioxide 17 L BUN 94 H Creatinine 2.7 H Glucose POC Glucose 116 H 117 H Lactic Acid Calcium Ionized Calcium Phosphorus Magnesium Direct Bilirubin AST ALT Alkaline Phosphatase Lactate Dehydrogenase Troponin T C-Reactive Protein Total Protein Albumin Prealbumin Triglycerides Cholesterol LDL Cholesterol Direct HDL Cholesterol 25-OH Vitamin D Total PTH Intact Urine pH Urine WBC (Auto) Urine Creatinine Urine Total Protein Fluid Total Protein Vancomycin Trough Rheumatoid Factor Complement C4 Miscellaneous Test Crossmatch 10/20/16 10/20/16 10/20/16 06:00 11:49 16:00 WBC 19.7 H RBC 2.51 L Hgb 7.7 L Hct 23.5 L MCV MCH MCHC RDW 17.5 H Plt Count Lymph % (Auto) [place] % (Auto) Lymph # [place] # Baso # Seg Neutrophils % Seg Neuts % (Manual) Lymphocytes % (Manual) Monocytes % (Manual) Eosinophils % (Manual) Basophils % (Manual) Nucleated RBC % Seg Neutrophils # Seg Neutrophils # Man Lymphocytes # (Manual) Monocytes # (Manual) Eosinophils # (Manual) Basophils # (Manual) PT INR Fibrinogen dRVVT Confirm Interp Factor V Activity POC ABG pH POC ABG pCO2 POC ABG pO2 ABG pO2 ABG HCO3 ABG Base Excess ABG Hemoglobin Oxyhemoglobin Sodium Potassium Chloride Carbon Dioxide BUN Creatinine Glucose POC Glucose 117 H Lactic Acid Calcium Ionized Calcium Phosphorus Magnesium Direct Bilirubin AST ALT Alkaline Phosphatase Lactate Dehydrogenase Troponin T C-Reactive Protein Total Protein Albumin Prealbumin Triglycerides Cholesterol LDL Cholesterol Direct HDL Cholesterol 25-OH Vitamin D Total PTH Intact Urine pH Urine WBC (Auto) Urine Creatinine Urine Total Protein Fluid Total Protein Vancomycin Trough Rheumatoid Factor Complement C4 Miscellaneous Test Flexitest 1 H Crossmatch 10/20/16 10/20/16 10/21/16 18:36 23:39 04:00 WBC RBC Hgb Hct MCV MCH MCHC RDW Plt Count Lymph % (Auto) [place] % (Auto) Lymph # [place] # Baso # Seg Neutrophils % Seg Neuts % (Manual) Lymphocytes % (Manual) Monocytes % (Manual) Eosinophils % (Manual) Basophils % (Manual) Nucleated RBC % Seg Neutrophils # Seg Neutrophils # Man Lymphocytes # (Manual) Monocytes # (Manual) Eosinophils # (Manual) Basophils # (Manual) PT INR Fibrinogen dRVVT Confirm Interp Factor V Activity POC ABG pH POC ABG pCO2 POC ABG pO2 ABG pO2 ABG HCO3 ABG Base Excess ABG Hemoglobin Oxyhemoglobin Sodium Potassium 5.4 H D Chloride Carbon Dioxide 15 L BUN 110 H Creatinine 3.0 H Glucose POC Glucose 127 H 114 H Lactic Acid Calcium Ionized Calcium Phosphorus Magnesium Direct Bilirubin AST ALT Alkaline Phosphatase Lactate Dehydrogenase Troponin T C-Reactive Protein Total Protein Albumin Prealbumin Triglycerides Cholesterol LDL Cholesterol Direct HDL Cholesterol 25-OH Vitamin D Total PTH Intact Urine pH Urine WBC (Auto) Urine Creatinine Urine Total Protein Fluid Total Protein Vancomycin Trough Rheumatoid Factor Complement C4 Miscellaneous Test Crossmatch 10/21/16 10/21/16 10/22/16 05:54 23:46 05:18 WBC RBC Hgb Hct MCV MCH MCHC RDW Plt Count Lymph % (Auto) [place] % (Auto) Lymph # [place] # Baso # Seg Neutrophils % Seg Neuts % (Manual) Lymphocytes % (Manual) Monocytes % (Manual) Eosinophils % (Manual) Basophils % (Manual) Nucleated RBC % Seg Neutrophils # Seg Neutrophils # Man Lymphocytes # (Manual) Monocytes # (Manual) Eosinophils # (Manual) Basophils # (Manual) PT INR Fibrinogen dRVVT Confirm Interp Factor V Activity POC ABG pH POC ABG pCO2 POC ABG pO2 ABG pO2 ABG HCO3 ABG Base Excess ABG Hemoglobin Oxyhemoglobin Sodium Potassium Chloride Carbon Dioxide BUN Creatinine Glucose POC Glucose 119 H 108 H 109 H Lactic Acid Calcium Ionized Calcium Phosphorus Magnesium Direct Bilirubin AST ALT Alkaline Phosphatase Lactate Dehydrogenase Troponin T C-Reactive Protein Total Protein Albumin Prealbumin Triglycerides Cholesterol LDL Cholesterol Direct HDL Cholesterol 25-OH Vitamin D Total PTH Intact Urine pH Urine WBC (Auto) Urine Creatinine Urine Total Protein Fluid Total Protein Vancomycin Trough Rheumatoid Factor Complement C4 Miscellaneous Test Crossmatch 10/22/16 10/22/16 10/22/16 06:40 06:40 06:40 WBC 14.0 H RBC 2.03 L Hgb 7.0 L Hct 20.5 L MCV 98 H MCH 34 H MCHC 35 H RDW 17.8 H Plt Count Lymph % (Auto) [place] % (Auto) 9.9 H Lymph # [place] # 1.4 H Baso # 0.2 H Seg Neutrophils % 72.0 H Seg Neuts % (Manual) Lymphocytes % (Manual) Monocytes % (Manual) Eosinophils % (Manual) Basophils % (Manual) Nucleated RBC % Seg Neutrophils # 10.0 H Seg Neutrophils # Man Lymphocytes # (Manual) Monocytes # (Manual) Eosinophils # (Manual) Basophils # (Manual) PT INR Fibrinogen dRVVT Confirm Interp Factor V Activity POC ABG pH POC ABG pCO2 POC ABG pO2 ABG pO2 ABG HCO3 ABG Base Excess ABG Hemoglobin Oxyhemoglobin Sodium 130 L D Potassium Chloride 92.4 L Carbon Dioxide 20 L BUN 50 H Creatinine 1.6 H Glucose 589 H* POC Glucose Lactic Acid Calcium 7.8 L D Ionized Calcium Phosphorus Magnesium 1.60 L Direct Bilirubin AST ALT Alkaline Phosphatase Lactate Dehydrogenase Troponin T C-Reactive Protein Total Protein Albumin Prealbumin Triglycerides Cholesterol LDL Cholesterol Direct HDL Cholesterol 25-OH Vitamin D Total PTH Intact Urine pH Urine WBC (Auto) Urine Creatinine Urine Total Protein Fluid Total Protein Vancomycin Trough Rheumatoid Factor Complement C4 Miscellaneous Test Crossmatch 10/22/16 10/22/16 10/22/16 11:39 16:44 23:36 WBC RBC Hgb Hct MCV MCH MCHC RDW Plt Count Lymph % (Auto) [place] % (Auto) Lymph # [place] # Baso # Seg Neutrophils % Seg Neuts % (Manual) Lymphocytes % (Manual) Monocytes % (Manual) Eosinophils % (Manual) Basophils % (Manual) Nucleated RBC % Seg Neutrophils # Seg Neutrophils # Man Lymphocytes # (Manual) Monocytes # (Manual) Eosinophils # (Manual) Basophils # (Manual) PT INR Fibrinogen dRVVT Confirm Interp Factor V Activity POC ABG pH POC ABG pCO2 POC ABG pO2 ABG pO2 ABG HCO3 ABG Base Excess ABG Hemoglobin Oxyhemoglobin Sodium Potassium Chloride Carbon Dioxide BUN Creatinine Glucose POC Glucose 142 H 163 H 123 H Lactic Acid Calcium Ionized Calcium Phosphorus Magnesium Direct Bilirubin AST ALT Alkaline Phosphatase Lactate Dehydrogenase Troponin T C-Reactive Protein Total Protein Albumin Prealbumin Triglycerides Cholesterol LDL Cholesterol Direct HDL Cholesterol 25-OH Vitamin D Total PTH Intact Urine pH Urine WBC (Auto) Urine Creatinine Urine Total Protein Fluid Total Protein Vancomycin Trough Rheumatoid Factor Complement C4 Miscellaneous Test Crossmatch 10/23/16 10/23/16 10/23/16 04:58 06:00 12:12 WBC RBC Hgb Hct MCV MCH MCHC RDW Plt Count Lymph % (Auto) [place] % (Auto) Lymph # [place] # Baso # Seg Neutrophils % Seg Neuts % (Manual) Lymphocytes % (Manual) Monocytes % (Manual) Eosinophils % (Manual) Basophils % (Manual) Nucleated RBC % Seg Neutrophils # Seg Neutrophils # Man Lymphocytes # (Manual) Monocytes # (Manual) Eosinophils # (Manual) Basophils # (Manual) PT INR Fibrinogen dRVVT Confirm Interp Factor V Activity POC ABG pH POC ABG pCO2 POC ABG pO2 ABG pO2 ABG HCO3 ABG Base Excess ABG Hemoglobin Oxyhemoglobin Sodium 133 L Potassium 3.5 L Chloride 96.1 L Carbon Dioxide 18 L BUN 76 H Creatinine 2.1 H Glucose POC Glucose 133 H 138 H Lactic Acid Calcium 8.3 L Ionized Calcium Phosphorus Magnesium Direct Bilirubin AST ALT Alkaline Phosphatase Lactate Dehydrogenase Troponin T C-Reactive Protein Total Protein Albumin Prealbumin Triglycerides Cholesterol LDL Cholesterol Direct HDL Cholesterol 25-OH Vitamin D Total PTH Intact Urine pH Urine WBC (Auto) Urine Creatinine Urine Total Protein Fluid Total Protein Vancomycin Trough Rheumatoid Factor Complement C4 Miscellaneous Test Crossmatch 10/23/16 10/23/16 10/24/16 16:53 23:37 04:00 WBC RBC Hgb Hct MCV MCH MCHC RDW Plt Count Lymph % (Auto) [place] % (Auto) Lymph # [place] # Baso # Seg Neutrophils % Seg Neuts % (Manual) Lymphocytes % (Manual) Monocytes % (Manual) Eosinophils % (Manual) Basophils % (Manual) Nucleated RBC % Seg Neutrophils # Seg Neutrophils # Man Lymphocytes # (Manual) Monocytes # (Manual) Eosinophils # (Manual) Basophils # (Manual) PT INR Fibrinogen dRVVT Confirm Interp Factor V Activity POC ABG pH POC ABG pCO2 POC ABG pO2 ABG pO2 ABG HCO3 ABG Base Excess ABG Hemoglobin Oxyhemoglobin Sodium 131 L Potassium Chloride 94.5 L Carbon Dioxide 19 L BUN 97 H Creatinine 2.6 H Glucose 110 H POC Glucose 125 H 123 H Lactic Acid Calcium 8.3 L Ionized Calcium Phosphorus Magnesium Direct Bilirubin AST ALT Alkaline Phosphatase Lactate Dehydrogenase Troponin T C-Reactive Protein Total Protein Albumin Prealbumin Triglycerides Cholesterol LDL Cholesterol Direct HDL Cholesterol 25-OH Vitamin D Total PTH Intact Urine pH Urine WBC (Auto) Urine Creatinine Urine Total Protein Fluid Total Protein Vancomycin Trough Rheumatoid Factor Complement C4 Miscellaneous Test Crossmatch 10/24/16 10/24/16 10/24/16 07:49 11:39 17:52 WBC RBC Hgb 6.0 L Hct 19.7 L* MCV MCH MCHC RDW Plt Count Lymph % (Auto) [place] % (Auto) Lymph # [place] # Baso # Seg Neutrophils % Seg Neuts % (Manual) Lymphocytes % (Manual) Monocytes % (Manual) Eosinophils % (Manual) Basophils % (Manual) Nucleated RBC % Seg Neutrophils # Seg Neutrophils # Man Lymphocytes # (Manual) Monocytes # (Manual) Eosinophils # (Manual) Basophils # (Manual) PT INR Fibrinogen dRVVT Confirm Interp Factor V Activity POC ABG pH POC ABG pCO2 POC ABG pO2 ABG pO2 ABG HCO3 ABG Base Excess ABG Hemoglobin Oxyhemoglobin Sodium Potassium Chloride Carbon Dioxide BUN Creatinine Glucose POC Glucose 106 H 158 H Lactic Acid Calcium Ionized Calcium Phosphorus Magnesium Direct Bilirubin AST ALT Alkaline Phosphatase Lactate Dehydrogenase Troponin T C-Reactive Protein Total Protein Albumin Prealbumin Triglycerides Cholesterol LDL Cholesterol Direct HDL Cholesterol 25-OH Vitamin D Total PTH Intact Urine pH Urine WBC (Auto) Urine Creatinine Urine Total Protein Fluid Total Protein Vancomycin Trough Rheumatoid Factor Complement C4 Miscellaneous Test Crossmatch 10/24/16 10/24/16 10/24/16 20:00 22:27 Unknown WBC RBC Hgb 9.4 L D Hct 27.5 L D MCV MCH MCHC RDW Plt Count Lymph % (Auto) [place] % (Auto) Lymph # [place] # Baso # Seg Neutrophils % Seg Neuts % (Manual) Lymphocytes % (Manual) Monocytes % (Manual) Eosinophils % (Manual) Basophils % (Manual) Nucleated RBC % Seg Neutrophils # Seg Neutrophils # Man Lymphocytes # (Manual) Monocytes # (Manual) Eosinophils # (Manual) Basophils # (Manual) PT INR Fibrinogen dRVVT Confirm Interp Factor V Activity POC ABG pH POC ABG pCO2 POC ABG pO2 ABG pO2 ABG HCO3 ABG Base Excess ABG Hemoglobin Oxyhemoglobin Sodium Potassium Chloride Carbon Dioxide BUN Creatinine Glucose POC Glucose 125 H Lactic Acid Calcium Ionized Calcium Phosphorus Magnesium Direct Bilirubin AST ALT Alkaline Phosphatase Lactate Dehydrogenase Troponin T C-Reactive Protein Total Protein Albumin Prealbumin Triglycerides Cholesterol LDL Cholesterol Direct HDL Cholesterol 25-OH Vitamin D Total PTH Intact Urine pH Urine WBC (Auto) Urine Creatinine Urine Total Protein Fluid Total Protein Vancomycin Trough Rheumatoid Factor Complement C4 Miscellaneous Test Crossmatch See Detail 10/25/16 10/25/16 10/25/16 04:00 04:00 04:00 WBC 14.2 H RBC 2.98 L Hgb 9.0 L Hct 26.2 L MCV MCH MCHC RDW 16.6 H Plt Count Lymph % (Auto) [place] % (Auto) 10.7 H Lymph # [place] # 1.5 H Baso # Seg Neutrophils % 73.6 H Seg Neuts % (Manual) Lymphocytes % (Manual) Monocytes % (Manual) Eosinophils % (Manual) Basophils % (Manual) Nucleated RBC % Seg Neutrophils # 10.5 H Seg Neutrophils # Man Lymphocytes # (Manual) Monocytes # (Manual) Eosinophils # (Manual) Basophils # (Manual) PT INR Fibrinogen dRVVT Confirm Interp Factor V Activity POC ABG pH POC ABG pCO2 POC ABG pO2 ABG pO2 ABG HCO3 ABG Base Excess ABG Hemoglobin Oxyhemoglobin Sodium 132 L Potassium Chloride 94.7 L Carbon Dioxide BUN 51 H Creatinine 1.6 H Glucose 130 H POC Glucose Lactic Acid Calcium 8.3 L Ionized Calcium Phosphorus 1.60 L D Magnesium Direct Bilirubin AST ALT Alkaline Phosphatase Lactate Dehydrogenase Troponin T C-Reactive Protein Total Protein Albumin Prealbumin Triglycerides Cholesterol LDL Cholesterol Direct HDL Cholesterol 25-OH Vitamin D Total PTH Intact Urine pH Urine WBC (Auto) Urine Creatinine Urine Total Protein Fluid Total Protein Vancomycin Trough Rheumatoid Factor Complement C4 Miscellaneous Test Crossmatch 10/25/16 10/25/16 10/25/16 04:32 11:48 17:22 WBC RBC Hgb Hct MCV MCH MCHC RDW Plt Count Lymph % (Auto) [place] % (Auto) Lymph # [place] # Baso # Seg Neutrophils % Seg Neuts % (Manual) Lymphocytes % (Manual) Monocytes % (Manual) Eosinophils % (Manual) Basophils % (Manual) Nucleated RBC % Seg Neutrophils # Seg Neutrophils # Man Lymphocytes # (Manual) Monocytes # (Manual) Eosinophils # (Manual) Basophils # (Manual) PT INR Fibrinogen dRVVT Confirm Interp Factor V Activity POC ABG pH POC ABG pCO2 POC ABG pO2 ABG pO2 ABG HCO3 ABG Base Excess ABG Hemoglobin Oxyhemoglobin Sodium Potassium Chloride Carbon Dioxide BUN Creatinine Glucose POC Glucose 124 H 171 H 120 H Lactic Acid Calcium Ionized Calcium Phosphorus Magnesium Direct Bilirubin AST ALT Alkaline Phosphatase Lactate Dehydrogenase Troponin T C-Reactive Protein Total Protein Albumin Prealbumin Triglycerides Cholesterol LDL Cholesterol Direct HDL Cholesterol 25-OH Vitamin D Total PTH Intact Urine pH Urine WBC (Auto) Urine Creatinine Urine Total Protein Fluid Total Protein Vancomycin Trough Rheumatoid Factor Complement C4 Miscellaneous Test Crossmatch 10/26/16 10/26/16 10/26/16 04:54 07:06 07:06 WBC 16.9 H RBC 3.06 L Hgb 9.1 L Hct 26.9 L MCV MCH MCHC RDW 16.9 H Plt Count Lymph % (Auto) [place] % (Auto) Lymph # [place] # Baso # Seg Neutrophils % Seg Neuts % (Manual) 71.0 H Lymphocytes % (Manual) 5.0 L Monocytes % (Manual) 12.0 H Eosinophils % (Manual) Basophils % (Manual) Nucleated RBC % Seg Neutrophils # Seg Neutrophils # Man 12.0 H Lymphocytes # (Manual) 0.8 L Monocytes # (Manual) 2.0 H Eosinophils # (Manual) Basophils # (Manual) PT INR Fibrinogen dRVVT Confirm Interp Factor V Activity POC ABG pH POC ABG pCO2 POC ABG pO2 ABG pO2 ABG HCO3 ABG Base Excess ABG Hemoglobin Oxyhemoglobin Sodium 135 L Potassium Chloride 97.1 L Carbon Dioxide BUN 73 H Creatinine 2.2 H Glucose 117 H POC Glucose 123 H Lactic Acid Calcium Ionized Calcium Phosphorus 1.70 L Magnesium Direct Bilirubin AST ALT Alkaline Phosphatase Lactate Dehydrogenase Troponin T C-Reactive Protein Total Protein Albumin Prealbumin Triglycerides Cholesterol LDL Cholesterol Direct HDL Cholesterol 25-OH Vitamin D Total PTH Intact Urine pH Urine WBC (Auto) Urine Creatinine Urine Total Protein Fluid Total Protein Vancomycin Trough Rheumatoid Factor Complement C4 Miscellaneous Test Crossmatch 10/26/16 10/26/16 10/26/16 12:12 17:29 23:42 WBC RBC Hgb Hct MCV MCH MCHC RDW Plt Count Lymph % (Auto) [place] % (Auto) Lymph # [place] # Baso # Seg Neutrophils % Seg Neuts % (Manual) Lymphocytes % (Manual) Monocytes % (Manual) Eosinophils % (Manual) Basophils % (Manual) Nucleated RBC % Seg Neutrophils # Seg Neutrophils # Man Lymphocytes # (Manual) Monocytes # (Manual) Eosinophils # (Manual) Basophils # (Manual) PT INR Fibrinogen dRVVT Confirm Interp Factor V Activity POC ABG pH POC ABG pCO2 POC ABG pO2 ABG pO2 ABG HCO3 ABG Base Excess ABG Hemoglobin Oxyhemoglobin Sodium Potassium Chloride Carbon Dioxide BUN Creatinine Glucose POC Glucose 126 H 161 H 118 H Lactic Acid Calcium Ionized Calcium Phosphorus Magnesium Direct Bilirubin AST ALT Alkaline Phosphatase Lactate Dehydrogenase Troponin T C-Reactive Protein Total Protein Albumin Prealbumin Triglycerides Cholesterol LDL Cholesterol Direct HDL Cholesterol 25-OH Vitamin D Total PTH Intact Urine pH Urine WBC (Auto) Urine Creatinine Urine Total Protein Fluid Total Protein Vancomycin Trough Rheumatoid Factor Complement C4 Miscellaneous Test Crossmatch 10/27/16 10/27/16 10/27/16 05:03 06:30 06:30 WBC 13.9 H RBC 3.09 L Hgb 9.2 L Hct 27.5 L MCV MCH MCHC RDW 17.0 H Plt Count Lymph % (Auto) [place] % (Auto) Lymph # [place] # Baso # Seg Neutrophils % Seg Neuts % (Manual) 78.0 H Lymphocytes % (Manual) Monocytes % (Manual) Eosinophils % (Manual) Basophils % (Manual) Nucleated RBC % 2.0 H Seg Neutrophils # Seg Neutrophils # Man 10.8 H Lymphocytes # (Manual) Monocytes # (Manual) 1.0 H Eosinophils # (Manual) Basophils # (Manual) PT INR Fibrinogen dRVVT Confirm Interp Factor V Activity POC ABG pH POC ABG pCO2 POC ABG pO2 ABG pO2 ABG HCO3 ABG Base Excess ABG Hemoglobin Oxyhemoglobin Sodium Potassium Chloride Carbon Dioxide BUN 40 H Creatinine 1.5 H Glucose 135 H POC Glucose 107 H Lactic Acid Calcium 8.3 L Ionized Calcium Phosphorus 1.30 L D Magnesium Direct Bilirubin AST ALT Alkaline Phosphatase Lactate Dehydrogenase Troponin T C-Reactive Protein Total Protein Albumin Prealbumin Triglycerides Cholesterol LDL Cholesterol Direct HDL Cholesterol 25-OH Vitamin D Total PTH Intact Urine pH Urine WBC (Auto) Urine Creatinine Urine Total Protein Fluid Total Protein Vancomycin Trough Rheumatoid Factor Complement C4 Miscellaneous Test Crossmatch 10/27/16 10/27/16 10/27/16 13:27 18:07 23:40 WBC RBC Hgb Hct MCV MCH MCHC RDW Plt Count Lymph % (Auto) [place] % (Auto) Lymph # [place] # Baso # Seg Neutrophils % Seg Neuts % (Manual) Lymphocytes % (Manual) Monocytes % (Manual) Eosinophils % (Manual) Basophils % (Manual) Nucleated RBC % Seg Neutrophils # Seg Neutrophils # Man Lymphocytes # (Manual) Monocytes # (Manual) Eosinophils # (Manual) Basophils # (Manual) PT INR Fibrinogen dRVVT Confirm Interp Factor V Activity POC ABG pH POC ABG pCO2 POC ABG pO2 ABG pO2 ABG HCO3 ABG Base Excess ABG Hemoglobin Oxyhemoglobin Sodium Potassium Chloride Carbon Dioxide BUN Creatinine Glucose POC Glucose 117 H 121 H 118 H Lactic Acid Calcium Ionized Calcium Phosphorus Magnesium Direct Bilirubin AST ALT Alkaline Phosphatase Lactate Dehydrogenase Troponin T C-Reactive Protein Total Protein Albumin Prealbumin Triglycerides Cholesterol LDL Cholesterol Direct HDL Cholesterol 25-OH Vitamin D Total PTH Intact Urine pH Urine WBC (Auto) Urine Creatinine Urine Total Protein Fluid Total Protein Vancomycin Trough Rheumatoid Factor Complement C4 Miscellaneous Test Crossmatch 10/28/16 10/28/16 10/28/16 05:48 06:45 06:45 WBC 14.7 H RBC 3.05 L Hgb 9.0 L Hct 26.9 L MCV MCH MCHC RDW 16.8 H Plt Count Lymph % (Auto) 8.2 L [place] % (Auto) 8.4 H Lymph # [place] # 1.2 H Baso # Seg Neutrophils % 81.9 H Seg Neuts % (Manual) Lymphocytes % (Manual) Monocytes % (Manual) Eosinophils % (Manual) Basophils % (Manual) Nucleated RBC % Seg Neutrophils # 12.1 H Seg Neutrophils # Man Lymphocytes # (Manual) Monocytes # (Manual) Eosinophils # (Manual) Basophils # (Manual) PT INR Fibrinogen dRVVT Confirm Interp Factor V Activity POC ABG pH POC ABG pCO2 POC ABG pO2 ABG pO2 ABG HCO3 ABG Base Excess ABG Hemoglobin Oxyhemoglobin Sodium Potassium Chloride Carbon Dioxide BUN 60 H Creatinine 1.9 H Glucose 120 H POC Glucose 114 H Lactic Acid Calcium Ionized Calcium Phosphorus Magnesium Direct Bilirubin AST ALT Alkaline Phosphatase Lactate Dehydrogenase Troponin T C-Reactive Protein Total Protein Albumin Prealbumin Triglycerides Cholesterol LDL Cholesterol Direct HDL Cholesterol 25-OH Vitamin D Total PTH Intact Urine pH Urine WBC (Auto) Urine Creatinine Urine Total Protein Fluid Total Protein Vancomycin Trough Rheumatoid Factor Complement C4 Miscellaneous Test Crossmatch 10/28/16 10/28/16 10/29/16 17:08 23:50 05:10 WBC RBC Hgb Hct MCV MCH MCHC RDW Plt Count Lymph % (Auto) [place] % (Auto) Lymph # [place] # Baso # Seg Neutrophils % Seg Neuts % (Manual) Lymphocytes % (Manual) Monocytes % (Manual) Eosinophils % (Manual) Basophils % (Manual) Nucleated RBC % Seg Neutrophils # Seg Neutrophils # Man Lymphocytes # (Manual) Monocytes # (Manual) Eosinophils # (Manual) Basophils # (Manual) PT INR Fibrinogen dRVVT Confirm Interp Factor V Activity POC ABG pH POC ABG pCO2 POC ABG pO2 ABG pO2 ABG HCO3 ABG Base Excess ABG Hemoglobin Oxyhemoglobin Sodium Potassium Chloride Carbon Dioxide BUN Creatinine Glucose POC Glucose 109 H 110 H 124 H Lactic Acid Calcium Ionized Calcium Phosphorus Magnesium Direct Bilirubin AST ALT Alkaline Phosphatase Lactate Dehydrogenase Troponin T C-Reactive Protein Total Protein Albumin Prealbumin Triglycerides Cholesterol LDL Cholesterol Direct HDL Cholesterol 25-OH Vitamin D Total PTH Intact Urine pH Urine WBC (Auto) Urine Creatinine Urine Total Protein Fluid Total Protein Vancomycin Trough Rheumatoid Factor Complement C4 Miscellaneous Test Crossmatch 10/29/16 10/29/16 10/29/16 07:45 07:45 12:19 WBC 14.7 H RBC 3.15 L Hgb 9.3 L Hct 28.9 L MCV MCH MCHC RDW 17.0 H Plt Count Lymph % (Auto) 11.9 L [place] % (Auto) 8.6 H Lymph # [place] # 1.3 H Baso # Seg Neutrophils % 78.1 H Seg Neuts % (Manual) Lymphocytes % (Manual) Monocytes % (Manual) Eosinophils % (Manual) Basophils % (Manual) Nucleated RBC % Seg Neutrophils # 11.4 H Seg Neutrophils # Man Lymphocytes # (Manual) Monocytes # (Manual) Eosinophils # (Manual) Basophils # (Manual) PT INR Fibrinogen dRVVT Confirm Interp Factor V Activity POC ABG pH POC ABG pCO2 POC ABG pO2 ABG pO2 ABG HCO3 ABG Base Excess ABG Hemoglobin Oxyhemoglobin Sodium Potassium 5.1 H Chloride Carbon Dioxide 19 L BUN 78 H Creatinine 2.2 H Glucose 116 H POC Glucose 118 H Lactic Acid Calcium Ionized Calcium Phosphorus Magnesium Direct Bilirubin AST ALT Alkaline Phosphatase Lactate Dehydrogenase Troponin T C-Reactive Protein Total Protein Albumin Prealbumin Triglycerides Cholesterol LDL Cholesterol Direct HDL Cholesterol 25-OH Vitamin D Total PTH Intact Urine pH Urine WBC (Auto) Urine Creatinine Urine Total Protein Fluid Total Protein Vancomycin Trough Rheumatoid Factor Complement C4 Miscellaneous Test Crossmatch 10/29/16 10/30/16 10/30/16 17:49 01:52 03:28 WBC RBC Hgb Hct MCV MCH MCHC RDW Plt Count Lymph % (Auto) [place] % (Auto) Lymph # [place] # Baso # Seg Neutrophils % Seg Neuts % (Manual) Lymphocytes % (Manual) Monocytes % (Manual) Eosinophils % (Manual) Basophils % (Manual) Nucleated RBC % Seg Neutrophils # Seg Neutrophils # Man Lymphocytes # (Manual) Monocytes # (Manual) Eosinophils # (Manual) Basophils # (Manual) PT INR Fibrinogen dRVVT Confirm Interp Factor V Activity POC ABG pH POC ABG pCO2 POC ABG pO2 ABG pO2 ABG HCO3 ABG Base Excess ABG Hemoglobin Oxyhemoglobin Sodium Potassium 5.4 H Chloride 97.5 L Carbon Dioxide 19 L BUN 90 H Creatinine 2.5 H Glucose POC Glucose 120 H 129 H Lactic Acid Calcium Ionized Calcium Phosphorus 5.20 H Magnesium Direct Bilirubin AST ALT Alkaline Phosphatase Lactate Dehydrogenase Troponin T C-Reactive Protein Total Protein Albumin Prealbumin Triglycerides Cholesterol LDL Cholesterol Direct HDL Cholesterol 25-OH Vitamin D Total PTH Intact Urine pH Urine WBC (Auto) Urine Creatinine Urine Total Protein Fluid Total Protein Vancomycin Trough Rheumatoid Factor Complement C4 Miscellaneous Test Crossmatch 10/30/16 10/30/16 10/30/16 03:28 08:19 08:19 WBC 11.6 H 15.9 H RBC 2.75 L 2.82 L Hgb 7.9 L 8.3 L Hct 24.2 L 25.2 L MCV MCH MCHC RDW 16.7 H 17.2 H Plt Count Lymph % (Auto) [place] % (Auto) 9.8 H Lymph # [place] # 1.1 H Baso # Seg Neutrophils % 74.2 H Seg Neuts % (Manual) Lymphocytes % (Manual) Monocytes % (Manual) Eosinophils % (Manual) Basophils % (Manual) Nucleated RBC % Seg Neutrophils # 8.6 H Seg Neutrophils # Man Lymphocytes # (Manual) Monocytes # (Manual) Eosinophils # (Manual) Basophils # (Manual) PT INR Fibrinogen dRVVT Confirm Interp Factor V Activity POC ABG pH POC ABG pCO2 POC ABG pO2 ABG pO2 ABG HCO3 ABG Base Excess ABG Hemoglobin Oxyhemoglobin Sodium Potassium 5.3 H Chloride 97.4 L Carbon Dioxide 19 L BUN 93 H Creatinine 2.6 H Glucose POC Glucose Lactic Acid Calcium Ionized Calcium Phosphorus Magnesium Direct Bilirubin AST ALT Alkaline Phosphatase Lactate Dehydrogenase Troponin T C-Reactive Protein Total Protein Albumin Prealbumin Triglycerides Cholesterol LDL Cholesterol Direct HDL Cholesterol 25-OH Vitamin D Total PTH Intact Urine pH Urine WBC (Auto) Urine Creatinine Urine Total Protein Fluid Total Protein Vancomycin Trough Rheumatoid Factor Complement C4 Miscellaneous Test Crossmatch 10/30/16 10/30/16 10/31/16 17:11 23:56 00:40 WBC RBC Hgb Hct MCV MCH MCHC RDW Plt Count Lymph % (Auto) [place] % (Auto) Lymph # [place] # Baso # Seg Neutrophils % Seg Neuts % (Manual) Lymphocytes % (Manual) Monocytes % (Manual) Eosinophils % (Manual) Basophils % (Manual) Nucleated RBC % Seg Neutrophils # Seg Neutrophils # Man Lymphocytes # (Manual) Monocytes # (Manual) Eosinophils # (Manual) Basophils # (Manual) PT INR Fibrinogen dRVVT Confirm Interp Factor V Activity POC ABG pH POC ABG pCO2 POC ABG pO2 ABG pO2 ABG HCO3 ABG Base Excess ABG Hemoglobin Oxyhemoglobin Sodium Potassium Chloride Carbon Dioxide BUN Creatinine Glucose POC Glucose 106 H 117 H 120 H Lactic Acid Calcium Ionized Calcium Phosphorus Magnesium Direct Bilirubin AST ALT Alkaline Phosphatase Lactate Dehydrogenase Troponin T C-Reactive Protein Total Protein Albumin Prealbumin Triglycerides Cholesterol LDL Cholesterol Direct HDL Cholesterol 25-OH Vitamin D Total PTH Intact Urine pH Urine WBC (Auto) Urine Creatinine Urine Total Protein Fluid Total Protein Vancomycin Trough Rheumatoid Factor Complement C4 Miscellaneous Test Crossmatch 10/31/16 10/31/16 10/31/16 05:43 07:15 07:15 WBC 12.1 H RBC 2.63 L Hgb 7.7 L Hct 23.3 L MCV MCH MCHC RDW 16.7 H Plt Count Lymph % (Auto) 11.7 L [place] % (Auto) 7.7 H Lymph # [place] # 0.9 H Baso # Seg Neutrophils % 78.0 H Seg Neuts % (Manual) Lymphocytes % (Manual) Monocytes % (Manual) Eosinophils % (Manual) Basophils % (Manual) Nucleated RBC % Seg Neutrophils # 9.4 H Seg Neutrophils # Man Lymphocytes # (Manual) Monocytes # (Manual) Eosinophils # (Manual) Basophils # (Manual) PT INR Fibrinogen dRVVT Confirm Interp Factor V Activity POC ABG pH POC ABG pCO2 POC ABG pO2 ABG pO2 ABG HCO3 ABG Base Excess ABG Hemoglobin Oxyhemoglobin Sodium Potassium Chloride 96.4 L Carbon Dioxide 21 L BUN 99 H Creatinine 2.6 H Glucose 144 H POC Glucose 125 H Lactic Acid Calcium Ionized Calcium Phosphorus 4.80 H Magnesium Direct Bilirubin AST ALT Alkaline Phosphatase Lactate Dehydrogenase Troponin T C-Reactive Protein Total Protein Albumin Prealbumin Triglycerides Cholesterol LDL Cholesterol Direct HDL Cholesterol 25-OH Vitamin D Total PTH Intact Urine pH Urine WBC (Auto) Urine Creatinine Urine Total Protein Fluid Total Protein Vancomycin Trough Rheumatoid Factor Complement C4 Miscellaneous Test Crossmatch 10/31/16 10/31/16 11/01/16 11:46 18:34 00:20 WBC RBC Hgb Hct MCV MCH MCHC RDW Plt Count Lymph % (Auto) [place] % (Auto) Lymph # [place] # Baso # Seg Neutrophils % Seg Neuts % (Manual) Lymphocytes % (Manual) Monocytes % (Manual) Eosinophils % (Manual) Basophils % (Manual) Nucleated RBC % Seg Neutrophils # Seg Neutrophils # Man Lymphocytes # (Manual) Monocytes # (Manual) Eosinophils # (Manual) Basophils # (Manual) PT INR Fibrinogen dRVVT Confirm Interp Factor V Activity POC ABG pH POC ABG pCO2 POC ABG pO2 ABG pO2 ABG HCO3 ABG Base Excess ABG Hemoglobin Oxyhemoglobin Sodium Potassium Chloride Carbon Dioxide BUN Creatinine Glucose POC Glucose 159 H 140 H 132 H Lactic Acid Calcium Ionized Calcium Phosphorus Magnesium Direct Bilirubin AST ALT Alkaline Phosphatase Lactate Dehydrogenase Troponin T C-Reactive Protein Total Protein Albumin Prealbumin Triglycerides Cholesterol LDL Cholesterol Direct HDL Cholesterol 25-OH Vitamin D Total PTH Intact Urine pH Urine WBC (Auto) Urine Creatinine Urine Total Protein Fluid Total Protein Vancomycin Trough Rheumatoid Factor Complement C4 Miscellaneous Test Crossmatch 11/01/16 11/01/16 11/01/16 04:55 04:55 06:11 WBC 11.2 H RBC 2.68 L Hgb 7.5 L Hct 23.7 L MCV MCH MCHC RDW 16.1 H Plt Count Lymph % (Auto) [place] % (Auto) 9.8 H Lymph # [place] # 1.1 H Baso # Seg Neutrophils % 70.8 H Seg Neuts % (Manual) Lymphocytes % (Manual) Monocytes % (Manual) Eosinophils % (Manual) Basophils % (Manual) Nucleated RBC % Seg Neutrophils # 7.9 H Seg Neutrophils # Man Lymphocytes # (Manual) Monocytes # (Manual) Eosinophils # (Manual) Basophils # (Manual) PT INR Fibrinogen dRVVT Confirm Interp Factor V Activity POC ABG pH POC ABG pCO2 POC ABG pO2 ABG pO2 ABG HCO3 ABG Base Excess ABG Hemoglobin Oxyhemoglobin Sodium Potassium 3.3 L D Chloride Carbon Dioxide BUN 61 H Creatinine 1.9 H Glucose 114 H POC Glucose 115 H Lactic Acid Calcium Ionized Calcium Phosphorus 1.80 L D Magnesium Direct Bilirubin AST ALT Alkaline Phosphatase Lactate Dehydrogenase Troponin T C-Reactive Protein Total Protein Albumin Prealbumin Triglycerides Cholesterol LDL Cholesterol Direct HDL Cholesterol 25-OH Vitamin D Total PTH Intact Urine pH Urine WBC (Auto) Urine Creatinine Urine Total Protein Fluid Total Protein Vancomycin Trough Rheumatoid Factor Complement C4 Miscellaneous Test Crossmatch 11/01/16 11/01/16 11/01/16 12:29 18:23 23:58 WBC RBC Hgb Hct MCV MCH MCHC RDW Plt Count Lymph % (Auto) [place] % (Auto) Lymph # [place] # Baso # Seg Neutrophils % Seg Neuts % (Manual) Lymphocytes % (Manual) Monocytes % (Manual) Eosinophils % (Manual) Basophils % (Manual) Nucleated RBC % Seg Neutrophils # Seg Neutrophils # Man Lymphocytes # (Manual) Monocytes # (Manual) Eosinophils # (Manual) Basophils # (Manual) PT INR Fibrinogen dRVVT Confirm Interp Factor V Activity POC ABG pH POC ABG pCO2 POC ABG pO2 ABG pO2 ABG HCO3 ABG Base Excess ABG Hemoglobin Oxyhemoglobin Sodium Potassium Chloride Carbon Dioxide BUN Creatinine Glucose POC Glucose 142 H 143 H 128 H Lactic Acid Calcium Ionized Calcium Phosphorus Magnesium Direct Bilirubin AST ALT Alkaline Phosphatase Lactate Dehydrogenase Troponin T C-Reactive Protein Total Protein Albumin Prealbumin Triglycerides Cholesterol LDL Cholesterol Direct HDL Cholesterol 25-OH Vitamin D Total PTH Intact Urine pH Urine WBC (Auto) Urine Creatinine Urine Total Protein Fluid Total Protein Vancomycin Trough Rheumatoid Factor Complement C4 Miscellaneous Test Crossmatch 11/02/16 11/02/16 11/02/16 04:16 05:29 11:58 WBC RBC Hgb Hct MCV MCH MCHC RDW Plt Count Lymph % (Auto) [place] % (Auto) Lymph # [place] # Baso # Seg Neutrophils % Seg Neuts % (Manual) Lymphocytes % (Manual) Monocytes % (Manual) Eosinophils % (Manual) Basophils % (Manual) Nucleated RBC % Seg Neutrophils # Seg Neutrophils # Man Lymphocytes # (Manual) Monocytes # (Manual) Eosinophils # (Manual) Basophils # (Manual) PT INR Fibrinogen dRVVT Confirm Interp Factor V Activity POC ABG pH POC ABG pCO2 POC ABG pO2 ABG pO2 ABG HCO3 ABG Base Excess ABG Hemoglobin Oxyhemoglobin Sodium Potassium 3.1 L Chloride Carbon Dioxide BUN 73 H Creatinine 2.3 H Glucose 112 H POC Glucose 135 H 149 H Lactic Acid Calcium Ionized Calcium Phosphorus Magnesium Direct Bilirubin AST ALT Alkaline Phosphatase Lactate Dehydrogenase Troponin T C-Reactive Protein Total Protein Albumin Prealbumin Triglycerides Cholesterol LDL Cholesterol Direct HDL Cholesterol 25-OH Vitamin D Total PTH Intact Urine pH Urine WBC (Auto) Urine Creatinine Urine Total Protein Fluid Total Protein Vancomycin Trough Rheumatoid Factor Complement C4 Miscellaneous Test Crossmatch 11/02/16 11/02/16 11/03/16 17:42 22:54 06:00 WBC RBC Hgb Hct MCV MCH MCHC RDW Plt Count Lymph % (Auto) [place] % (Auto) Lymph # [place] # Baso # Seg Neutrophils % Seg Neuts % (Manual) Lymphocytes % (Manual) Monocytes % (Manual) Eosinophils % (Manual) Basophils % (Manual) Nucleated RBC % Seg Neutrophils # Seg Neutrophils # Man Lymphocytes # (Manual) Monocytes # (Manual) Eosinophils # (Manual) Basophils # (Manual) PT INR Fibrinogen dRVVT Confirm Interp Factor V Activity POC ABG pH POC ABG pCO2 POC ABG pO2 ABG pO2 ABG HCO3 ABG Base Excess ABG Hemoglobin Oxyhemoglobin Sodium Potassium Chloride 96.7 L Carbon Dioxide BUN 41 H Creatinine 1.5 H Glucose 145 H POC Glucose 182 H 115 H Lactic Acid Calcium Ionized Calcium Phosphorus 1.60 L D Magnesium 1.50 L Direct Bilirubin AST ALT Alkaline Phosphatase Lactate Dehydrogenase Troponin T C-Reactive Protein Total Protein Albumin Prealbumin Triglycerides Cholesterol LDL Cholesterol Direct HDL Cholesterol 25-OH Vitamin D Total PTH Intact Urine pH Urine WBC (Auto) Urine Creatinine Urine Total Protein Fluid Total Protein Vancomycin Trough Rheumatoid Factor Complement C4 Miscellaneous Test Crossmatch 11/03/16 11/03/16 11/03/16 11:53 17:45 23:37 WBC RBC Hgb Hct MCV MCH MCHC RDW Plt Count Lymph % (Auto) [place] % (Auto) Lymph # [place] # Baso # Seg Neutrophils % Seg Neuts % (Manual) Lymphocytes % (Manual) Monocytes % (Manual) Eosinophils % (Manual) Basophils % (Manual) Nucleated RBC % Seg Neutrophils # Seg Neutrophils # Man Lymphocytes # (Manual) Monocytes # (Manual) Eosinophils # (Manual) Basophils # (Manual) PT INR Fibrinogen dRVVT Confirm Interp Factor V Activity POC ABG pH POC ABG pCO2 POC ABG pO2 ABG pO2 ABG HCO3 ABG Base Excess ABG Hemoglobin Oxyhemoglobin Sodium Potassium Chloride Carbon Dioxide BUN Creatinine Glucose POC Glucose 131 H 134 H 113 H Lactic Acid Calcium Ionized Calcium Phosphorus Magnesium Direct Bilirubin AST ALT Alkaline Phosphatase Lactate Dehydrogenase Troponin T C-Reactive Protein Total Protein Albumin Prealbumin Triglycerides Cholesterol LDL Cholesterol Direct HDL Cholesterol 25-OH Vitamin D Total PTH Intact Urine pH Urine WBC (Auto) Urine Creatinine Urine Total Protein Fluid Total Protein Vancomycin Trough Rheumatoid Factor Complement C4 Miscellaneous Test Crossmatch 11/04/16 11/04/16 11/04/16 05:41 06:00 12:10 WBC RBC Hgb Hct MCV MCH MCHC RDW Plt Count Lymph % (Auto) [place] % (Auto) Lymph # [place] # Baso # Seg Neutrophils % Seg Neuts % (Manual) Lymphocytes % (Manual) Monocytes % (Manual) Eosinophils % (Manual) Basophils % (Manual) Nucleated RBC % Seg Neutrophils # Seg Neutrophils # Man Lymphocytes # (Manual) Monocytes # (Manual) Eosinophils # (Manual) Basophils # (Manual) PT INR Fibrinogen dRVVT Confirm Interp Factor V Activity POC ABG pH POC ABG pCO2 POC ABG pO2 ABG pO2 ABG HCO3 ABG Base Excess ABG Hemoglobin Oxyhemoglobin Sodium Potassium Chloride 96.7 L Carbon Dioxide BUN 52 H Creatinine 1.9 H Glucose 126 H POC Glucose 137 H 191 H Lactic Acid Calcium Ionized Calcium Phosphorus Magnesium Direct Bilirubin AST ALT Alkaline Phosphatase Lactate Dehydrogenase Troponin T C-Reactive Protein Total Protein Albumin Prealbumin Triglycerides Cholesterol LDL Cholesterol Direct HDL Cholesterol 25-OH Vitamin D Total PTH Intact Urine pH Urine WBC (Auto) Urine Creatinine Urine Total Protein Fluid Total Protein Vancomycin Trough Rheumatoid Factor Complement C4 Miscellaneous Test Crossmatch 11/04/16 11/05/16 11/05/16 22:57 03:10 05:10 WBC RBC Hgb Hct MCV MCH MCHC RDW Plt Count Lymph % (Auto) [place] % (Auto) Lymph # [place] # Baso # Seg Neutrophils % Seg Neuts % (Manual) Lymphocytes % (Manual) Monocytes % (Manual) Eosinophils % (Manual) Basophils % (Manual) Nucleated RBC % Seg Neutrophils # Seg Neutrophils # Man Lymphocytes # (Manual) Monocytes # (Manual) Eosinophils # (Manual) Basophils # (Manual) PT INR Fibrinogen dRVVT Confirm Interp Factor V Activity POC ABG pH POC ABG pCO2 POC ABG pO2 ABG pO2 ABG HCO3 ABG Base Excess ABG Hemoglobin Oxyhemoglobin Sodium 136 L Potassium Chloride 97.2 L Carbon Dioxide BUN 32 H Creatinine 1.3 H Glucose 123 H POC Glucose 125 H 108 H Lactic Acid Calcium 7.8 L Ionized Calcium Phosphorus Magnesium Direct Bilirubin AST ALT Alkaline Phosphatase Lactate Dehydrogenase Troponin T C-Reactive Protein Total Protein Albumin Prealbumin Triglycerides Cholesterol LDL Cholesterol Direct HDL Cholesterol 25-OH Vitamin D Total PTH Intact Urine pH Urine WBC (Auto) Urine Creatinine Urine Total Protein Fluid Total Protein Vancomycin Trough Rheumatoid Factor Complement C4 Miscellaneous Test Crossmatch 11/05/16 11/05/16 11/05/16 12:23 13:09 13:25 WBC RBC Hgb Hct MCV MCH MCHC RDW Plt Count Lymph % (Auto) [place] % (Auto) Lymph # [place] # Baso # Seg Neutrophils % Seg Neuts % (Manual) Lymphocytes % (Manual) Monocytes % (Manual) Eosinophils % (Manual) Basophils % (Manual) Nucleated RBC % Seg Neutrophils # Seg Neutrophils # Man Lymphocytes # (Manual) Monocytes # (Manual) Eosinophils # (Manual) Basophils # (Manual) PT INR Fibrinogen dRVVT Confirm Interp Factor V Activity POC ABG pH POC ABG pCO2 POC ABG pO2 ABG pO2 ABG HCO3 ABG Base Excess ABG Hemoglobin Oxyhemoglobin Sodium Potassium Chloride Carbon Dioxide BUN Creatinine Glucose POC Glucose 124 H Lactic Acid Calcium Ionized Calcium Phosphorus Magnesium Direct Bilirubin AST ALT Alkaline Phosphatase Lactate Dehydrogenase Troponin T C-Reactive Protein 11.40 H Total Protein Albumin Prealbumin Triglycerides Cholesterol LDL Cholesterol Direct HDL Cholesterol 25-OH Vitamin D Total PTH Intact Urine pH 9.0 H Urine WBC (Auto) Urine Creatinine Urine Total Protein Fluid Total Protein Vancomycin Trough Rheumatoid Factor Complement C4 Miscellaneous Test Crossmatch 11/05/16 11/05/16 11/05/16 13:25 17:54 23:42 WBC RBC Hgb Hct MCV MCH MCHC RDW Plt Count Lymph % (Auto) [place] % (Auto) Lymph # [place] # Baso # Seg Neutrophils % Seg Neuts % (Manual) Lymphocytes % (Manual) Monocytes % (Manual) Eosinophils % (Manual) Basophils % (Manual) Nucleated RBC % Seg Neutrophils # Seg Neutrophils # Man Lymphocytes # (Manual) Monocytes # (Manual) Eosinophils # (Manual) Basophils # (Manual) PT INR Fibrinogen dRVVT Confirm Interp Factor V Activity POC ABG pH POC ABG pCO2 POC ABG pO2 ABG pO2 ABG HCO3 ABG Base Excess ABG Hemoglobin Oxyhemoglobin Sodium Potassium Chloride Carbon Dioxide BUN Creatinine Glucose POC Glucose 114 H 134 H Lactic Acid Calcium Ionized Calcium Phosphorus Magnesium Direct Bilirubin AST ALT Alkaline Phosphatase Lactate Dehydrogenase Troponin T C-Reactive Protein Total Protein Albumin Prealbumin Triglycerides Cholesterol LDL Cholesterol Direct HDL Cholesterol 25-OH Vitamin D Total PTH Intact Urine pH Urine WBC (Auto) Urine Creatinine Urine Total Protein Fluid Total Protein Vancomycin Trough Rheumatoid Factor Complement C4 Miscellaneous Test Flexitest 1 H Crossmatch 11/06/16 11/06/16 11/06/16 04:56 06:25 06:25 WBC RBC 2.50 L Hgb 7.3 L Hct 22.5 L MCV MCH MCHC RDW 16.9 H Plt Count Lymph % (Auto) [place] % (Auto) 10.5 H Lymph # [place] # 1.1 H Baso # Seg Neutrophils % Seg Neuts % (Manual) Lymphocytes % (Manual) Monocytes % (Manual) Eosinophils % (Manual) Basophils % (Manual) Nucleated RBC % Seg Neutrophils # Seg Neutrophils # Man Lymphocytes # (Manual) Monocytes # (Manual) Eosinophils # (Manual) Basophils # (Manual) PT INR Fibrinogen dRVVT Confirm Interp Factor V Activity POC ABG pH POC ABG pCO2 POC ABG pO2 ABG pO2 ABG HCO3 ABG Base Excess ABG Hemoglobin Oxyhemoglobin Sodium Potassium 5.1 H Chloride 95.9 L Carbon Dioxide BUN 52 H Creatinine 1.8 H Glucose 117 H POC Glucose 120 H Lactic Acid Calcium Ionized Calcium Phosphorus Magnesium Direct Bilirubin AST 103 H ALT 77 H Alkaline Phosphatase 285 H Lactate Dehydrogenase Troponin T C-Reactive Protein Total Protein 6.2 L Albumin 1.8 L Prealbumin 0.180 L Triglycerides Cholesterol LDL Cholesterol Direct HDL Cholesterol 25-OH Vitamin D Total PTH Intact Urine pH Urine WBC (Auto) Urine Creatinine Urine Total Protein Fluid Total Protein Vancomycin Trough Rheumatoid Factor Complement C4 Miscellaneous Test Crossmatch 11/06/16 11/06/16 11/06/16 11:56 17:14 23:52 WBC RBC Hgb Hct MCV MCH MCHC RDW Plt Count Lymph % (Auto) [place] % (Auto) Lymph # [place] # Baso # Seg Neutrophils % Seg Neuts % (Manual) Lymphocytes % (Manual) Monocytes % (Manual) Eosinophils % (Manual) Basophils % (Manual) Nucleated RBC % Seg Neutrophils # Seg Neutrophils # Man Lymphocytes # (Manual) Monocytes # (Manual) Eosinophils # (Manual) Basophils # (Manual) PT INR Fibrinogen dRVVT Confirm Interp Factor V Activity POC ABG pH POC ABG pCO2 POC ABG pO2 ABG pO2 ABG HCO3 ABG Base Excess ABG Hemoglobin Oxyhemoglobin Sodium Potassium Chloride Carbon Dioxide BUN Creatinine Glucose POC Glucose 141 H 125 H 130 H Lactic Acid Calcium Ionized Calcium Phosphorus Magnesium Direct Bilirubin AST ALT Alkaline Phosphatase Lactate Dehydrogenase Troponin T C-Reactive Protein Total Protein Albumin Prealbumin Triglycerides Cholesterol LDL Cholesterol Direct HDL Cholesterol 25-OH Vitamin D Total PTH Intact Urine pH Urine WBC (Auto) Urine Creatinine Urine Total Protein Fluid Total Protein Vancomycin Trough Rheumatoid Factor Complement C4 Miscellaneous Test Crossmatch 11/07/16 11/07/16 11/07/16 06:30 06:30 09:37 WBC RBC 2.18 L Hgb 6.3 L Hct 19.7 L* MCV MCH MCHC RDW 16.8 H Plt Count Lymph % (Auto) [place] % (Auto) 10.0 H Lymph # [place] # 1.0 H Baso # Seg Neutrophils % Seg Neuts % (Manual) Lymphocytes % (Manual) Monocytes % (Manual) Eosinophils % (Manual) Basophils % (Manual) Nucleated RBC % Seg Neutrophils # Seg Neutrophils # Man Lymphocytes # (Manual) Monocytes # (Manual) Eosinophils # (Manual) Basophils # (Manual) PT INR Fibrinogen dRVVT Confirm Interp Factor V Activity POC ABG pH POC ABG pCO2 POC ABG pO2 ABG pO2 ABG HCO3 ABG Base Excess ABG Hemoglobin Oxyhemoglobin Sodium 135 L Potassium Chloride 95.6 L Carbon Dioxide BUN 70 H Creatinine 2.0 H Glucose 126 H POC Glucose Lactic Acid Calcium Ionized Calcium Phosphorus Magnesium Direct Bilirubin AST ALT Alkaline Phosphatase Lactate Dehydrogenase Troponin T C-Reactive Protein Total Protein Albumin Prealbumin Triglycerides Cholesterol LDL Cholesterol Direct HDL Cholesterol 25-OH Vitamin D Total PTH Intact Urine pH Urine WBC (Auto) Urine Creatinine Urine Total Protein Fluid Total Protein Vancomycin Trough Rheumatoid Factor Complement C4 Miscellaneous Test Crossmatch See Detail 11/07/16 11/07/16 11/07/16 12:52 18:51 21:26 WBC RBC Hgb Hct MCV MCH MCHC RDW Plt Count Lymph % (Auto) [place] % (Auto) Lymph # [place] # Baso # Seg Neutrophils % Seg Neuts % (Manual) Lymphocytes % (Manual) Monocytes % (Manual) Eosinophils % (Manual) Basophils % (Manual) Nucleated RBC % Seg Neutrophils # Seg Neutrophils # Man Lymphocytes # (Manual) Monocytes # (Manual) Eosinophils # (Manual) Basophils # (Manual) PT INR Fibrinogen dRVVT Confirm Interp Factor V Activity POC ABG pH 7.523 H POC ABG pCO2 34.6 L POC ABG pO2 53 L ABG pO2 ABG HCO3 ABG Base Excess ABG Hemoglobin Oxyhemoglobin Sodium Potassium Chloride Carbon Dioxide BUN Creatinine Glucose POC Glucose 142 H 155 H Lactic Acid Calcium Ionized Calcium Phosphorus Magnesium Direct Bilirubin AST ALT Alkaline Phosphatase Lactate Dehydrogenase Troponin T C-Reactive Protein Total Protein Albumin Prealbumin Triglycerides Cholesterol LDL Cholesterol Direct HDL Cholesterol 25-OH Vitamin D Total PTH Intact Urine pH Urine WBC (Auto) Urine Creatinine Urine Total Protein Fluid Total Protein Vancomycin Trough Rheumatoid Factor Complement C4 Miscellaneous Test Crossmatch 11/07/16 11/08/16 11/08/16 21:34 13:03 23:37 WBC RBC 2.63 L Hgb 7.7 L Hct 22.7 L MCV MCH MCHC RDW 17.0 H Plt Count Lymph % (Auto) [place] % (Auto) Lymph # [place] # Baso # Seg Neutrophils % Seg Neuts % (Manual) Lymphocytes % (Manual) Monocytes % (Manual) Eosinophils % (Manual) Basophils % (Manual) Nucleated RBC % Seg Neutrophils # Seg Neutrophils # Man Lymphocytes # (Manual) Monocytes # (Manual) Eosinophils # (Manual) Basophils # (Manual) PT INR Fibrinogen dRVVT Confirm Interp Factor V Activity POC ABG pH 7.478 H POC ABG pCO2 34.0 L POC ABG pO2 50 L ABG pO2 ABG HCO3 ABG Base Excess ABG Hemoglobin Oxyhemoglobin Sodium Potassium Chloride Carbon Dioxide BUN Creatinine Glucose POC Glucose 113 H Lactic Acid Calcium Ionized Calcium Phosphorus Magnesium Direct Bilirubin AST ALT Alkaline Phosphatase Lactate Dehydrogenase Troponin T C-Reactive Protein Total Protein Albumin Prealbumin Triglycerides Cholesterol LDL Cholesterol Direct HDL Cholesterol 25-OH Vitamin D Total PTH Intact Urine pH Urine WBC (Auto) Urine Creatinine Urine Total Protein Fluid Total Protein Vancomycin Trough Rheumatoid Factor Complement C4 Miscellaneous Test Crossmatch 11/09/16 11/09/16 11/09/16 04:35 10:15 18:21 WBC RBC 2.68 L Hgb 7.8 L Hct 23.3 L MCV MCH MCHC RDW 17.0 H Plt Count Lymph % (Auto) [place] % (Auto) 12.1 H Lymph # [place] # 1.1 H Baso # Seg Neutrophils % Seg Neuts % (Manual) Lymphocytes % (Manual) Monocytes % (Manual) Eosinophils % (Manual) Basophils % (Manual) Nucleated RBC % Seg Neutrophils # Seg Neutrophils # Man Lymphocytes # (Manual) Monocytes # (Manual) Eosinophils # (Manual) Basophils # (Manual) PT INR Fibrinogen dRVVT Confirm Interp Factor V Activity POC ABG pH POC ABG pCO2 POC ABG pO2 ABG pO2 ABG HCO3 ABG Base Excess ABG Hemoglobin Oxyhemoglobin Sodium Potassium Chloride Carbon Dioxide BUN 51 H Creatinine 1.8 H Glucose POC Glucose 60 L Lactic Acid Calcium 8.3 L Ionized Calcium Phosphorus Magnesium Direct Bilirubin AST ALT Alkaline Phosphatase Lactate Dehydrogenase Troponin T C-Reactive Protein Total Protein Albumin Prealbumin Triglycerides Cholesterol LDL Cholesterol Direct HDL Cholesterol 25-OH Vitamin D Total PTH Intact Urine pH Urine WBC (Auto) Urine Creatinine Urine Total Protein Fluid Total Protein Vancomycin Trough Rheumatoid Factor Complement C4 Miscellaneous Test Crossmatch 11/09/16 11/10/16 11/10/16 18:55 07:00 11:51 WBC RBC Hgb Hct MCV MCH MCHC RDW Plt Count Lymph % (Auto) [place] % (Auto) Lymph # [place] # Baso # Seg Neutrophils % Seg Neuts % (Manual) Lymphocytes % (Manual) Monocytes % (Manual) Eosinophils % (Manual) Basophils % (Manual) Nucleated RBC % Seg Neutrophils # Seg Neutrophils # Man Lymphocytes # (Manual) Monocytes # (Manual) Eosinophils # (Manual) Basophils # (Manual) PT INR Fibrinogen dRVVT Confirm Interp Factor V Activity POC ABG pH POC ABG pCO2 POC ABG pO2 ABG pO2 ABG HCO3 ABG Base Excess ABG Hemoglobin Oxyhemoglobin Sodium Potassium 3.0 L D Chloride 97.4 L Carbon Dioxide BUN 28 H Creatinine 1.3 H Glucose POC Glucose 68 L 120 H Lactic Acid Calcium 7.8 L Ionized Calcium Phosphorus Magnesium Direct Bilirubin AST ALT Alkaline Phosphatase Lactate Dehydrogenase Troponin T C-Reactive Protein Total Protein Albumin Prealbumin Triglycerides Cholesterol LDL Cholesterol Direct HDL Cholesterol 25-OH Vitamin D Total PTH Intact Urine pH Urine WBC (Auto) Urine Creatinine Urine Total Protein Fluid Total Protein Vancomycin Trough Rheumatoid Factor Complement C4 Miscellaneous Test Crossmatch 11/10/16 11/11/16 11/11/16 14:20 06:59 06:59 WBC RBC 2.81 L Hgb 8.1 L Hct 24.4 L MCV MCH MCHC RDW 16.4 H Plt Count Lymph % (Auto) [place] % (Auto) 10.8 H Lymph # [place] # 1.0 H Baso # Seg Neutrophils % Seg Neuts % (Manual) Lymphocytes % (Manual) Monocytes % (Manual) Eosinophils % (Manual) Basophils % (Manual) Nucleated RBC % Seg Neutrophils # Seg Neutrophils # Man Lymphocytes # (Manual) Monocytes # (Manual) Eosinophils # (Manual) Basophils # (Manual) PT INR Fibrinogen dRVVT Confirm Interp Factor V Activity POC ABG pH POC ABG pCO2 POC ABG pO2 ABG pO2 ABG HCO3 ABG Base Excess ABG Hemoglobin Oxyhemoglobin Sodium Potassium Chloride Carbon Dioxide BUN Creatinine Glucose POC Glucose Lactic Acid Calcium Ionized Calcium Phosphorus Magnesium Direct Bilirubin AST ALT Alkaline Phosphatase Lactate Dehydrogenase 196 H Troponin T C-Reactive Protein Total Protein 6.1 L Albumin Prealbumin Triglycerides Cholesterol LDL Cholesterol Direct HDL Cholesterol 25-OH Vitamin D Total PTH Intact Urine pH Urine WBC (Auto) Urine Creatinine Urine Total Protein Fluid Total Protein < 3.0 L Vancomycin Trough Rheumatoid Factor Complement C4 Miscellaneous Test Crossmatch 11/11/16 11/11/16 11/12/16 06:59 09:50 04:00 WBC RBC Hgb Hct MCV MCH MCHC RDW Plt Count Lymph % (Auto) [place] % (Auto) Lymph # [place] # Baso # Seg Neutrophils % Seg Neuts % (Manual) Lymphocytes % (Manual) Monocytes % (Manual) Eosinophils % (Manual) Basophils % (Manual) Nucleated RBC % Seg Neutrophils # Seg Neutrophils # Man Lymphocytes # (Manual) Monocytes # (Manual) Eosinophils # (Manual) Basophils # (Manual) PT INR 1.18 H Fibrinogen dRVVT Confirm Interp Factor V Activity POC ABG pH POC ABG pCO2 POC ABG pO2 ABG pO2 ABG HCO3 ABG Base Excess ABG Hemoglobin Oxyhemoglobin Sodium 136 L 133 L Potassium Chloride 96.1 L 94.8 L Carbon Dioxide 21 L BUN 37 H 42 H Creatinine 1.8 H 2.0 H Glucose POC Glucose Lactic Acid Calcium Ionized Calcium Phosphorus Magnesium Direct Bilirubin AST ALT Alkaline Phosphatase Lactate Dehydrogenase Troponin T C-Reactive Protein Total Protein Albumin Prealbumin Triglycerides Cholesterol LDL Cholesterol Direct HDL Cholesterol 25-OH Vitamin D Total PTH Intact Urine pH Urine WBC (Auto) Urine Creatinine Urine Total Protein Fluid Total Protein Vancomycin Trough Rheumatoid Factor Complement C4 Miscellaneous Test Crossmatch 11/12/16 11/12/16 11/13/16 04:00 23:55 05:53 WBC RBC Hgb 8.9 L Hct 27.2 L MCV MCH MCHC RDW Plt Count Lymph % (Auto) [place] % (Auto) Lymph # [place] # Baso # Seg Neutrophils % Seg Neuts % (Manual) Lymphocytes % (Manual) Monocytes % (Manual) Eosinophils % (Manual) Basophils % (Manual) Nucleated RBC % Seg Neutrophils # Seg Neutrophils # Man Lymphocytes # (Manual) Monocytes # (Manual) Eosinophils # (Manual) Basophils # (Manual) PT INR Fibrinogen dRVVT Confirm Interp Factor V Activity POC ABG pH POC ABG pCO2 POC ABG pO2 ABG pO2 ABG HCO3 ABG Base Excess ABG Hemoglobin Oxyhemoglobin Sodium Potassium Chloride Carbon Dioxide BUN Creatinine Glucose POC Glucose 132 H 120 H Lactic Acid Calcium Ionized Calcium Phosphorus Magnesium Direct Bilirubin AST ALT Alkaline Phosphatase Lactate Dehydrogenase Troponin T C-Reactive Protein Total Protein Albumin Prealbumin Triglycerides Cholesterol LDL Cholesterol Direct HDL Cholesterol 25-OH Vitamin D Total PTH Intact Urine pH Urine WBC (Auto) Urine Creatinine Urine Total Protein Fluid Total Protein Vancomycin Trough Rheumatoid Factor Complement C4 Miscellaneous Test Crossmatch 11/13/16 11/13/16 11/13/16 11:43 17:09 23:41 WBC RBC Hgb Hct MCV MCH MCHC RDW Plt Count Lymph % (Auto) [place] % (Auto) Lymph # [place] # Baso # Seg Neutrophils % Seg Neuts % (Manual) Lymphocytes % (Manual) Monocytes % (Manual) Eosinophils % (Manual) Basophils % (Manual) Nucleated RBC % Seg Neutrophils # Seg Neutrophils # Man Lymphocytes # (Manual) Monocytes # (Manual) Eosinophils # (Manual) Basophils # (Manual) PT INR Fibrinogen dRVVT Confirm Interp Factor V Activity POC ABG pH POC ABG pCO2 POC ABG pO2 ABG pO2 ABG HCO3 ABG Base Excess ABG Hemoglobin Oxyhemoglobin Sodium Potassium Chloride Carbon Dioxide BUN Creatinine Glucose POC Glucose 114 H 113 H 108 H Lactic Acid Calcium Ionized Calcium Phosphorus Magnesium Direct Bilirubin AST ALT Alkaline Phosphatase Lactate Dehydrogenase Troponin T C-Reactive Protein Total Protein Albumin Prealbumin Triglycerides Cholesterol LDL Cholesterol Direct HDL Cholesterol 25-OH Vitamin D Total PTH Intact Urine pH Urine WBC (Auto) Urine Creatinine Urine Total Protein Fluid Total Protein Vancomycin Trough Rheumatoid Factor Complement C4 Miscellaneous Test Crossmatch 11/13/16 11/15/16 11/15/16 Unknown 00:37 03:30 WBC 11.2 H RBC 2.72 L Hgb 7.6 L Hct 23.4 L MCV MCH MCHC RDW 16.5 H Plt Count Lymph % (Auto) [place] % (Auto) Lymph # [place] # Baso # Seg Neutrophils % Seg Neuts % (Manual) Lymphocytes % (Manual) Monocytes % (Manual) Eosinophils % (Manual) Basophils % (Manual) Nucleated RBC % Seg Neutrophils # Seg Neutrophils # Man Lymphocytes # (Manual) Monocytes # (Manual) Eosinophils # (Manual) Basophils # (Manual) PT INR Fibrinogen dRVVT Confirm Interp Factor V Activity POC ABG pH POC ABG pCO2 POC ABG pO2 ABG pO2 ABG HCO3 ABG Base Excess ABG Hemoglobin Oxyhemoglobin Sodium 135 L Potassium Chloride 95.2 L Carbon Dioxide BUN 52 H Creatinine 2.2 H Glucose POC Glucose 108 H Lactic Acid Calcium Ionized Calcium Phosphorus Magnesium Direct Bilirubin AST ALT Alkaline Phosphatase Lactate Dehydrogenase Troponin T C-Reactive Protein Total Protein Albumin Prealbumin Triglycerides Cholesterol LDL Cholesterol Direct HDL Cholesterol 25-OH Vitamin D Total PTH Intact Urine pH Urine WBC (Auto) Urine Creatinine Urine Total Protein Fluid Total Protein Vancomycin Trough Rheumatoid Factor Complement C4 Miscellaneous Test Crossmatch 11/15/16 11/15/16 11/15/16 03:30 05:04 11:50 WBC RBC Hgb Hct MCV MCH MCHC RDW Plt Count Lymph % (Auto) [place] % (Auto) Lymph # [place] # Baso # Seg Neutrophils % Seg Neuts % (Manual) Lymphocytes % (Manual) Monocytes % (Manual) Eosinophils % (Manual) Basophils % (Manual) Nucleated RBC % Seg Neutrophils # Seg Neutrophils # Man Lymphocytes # (Manual) Monocytes # (Manual) Eosinophils # (Manual) Basophils # (Manual) PT INR Fibrinogen dRVVT Confirm Interp Factor V Activity POC ABG pH POC ABG pCO2 POC ABG pO2 ABG pO2 ABG HCO3 ABG Base Excess ABG Hemoglobin Oxyhemoglobin Sodium Potassium 3.4 L Chloride Carbon Dioxide BUN 25 H Creatinine 1.5 H Glucose 103 H POC Glucose 121 H 144 H Lactic Acid Calcium Ionized Calcium Phosphorus Magnesium Direct Bilirubin AST ALT Alkaline Phosphatase Lactate Dehydrogenase Troponin T C-Reactive Protein Total Protein Albumin Prealbumin Triglycerides Cholesterol LDL Cholesterol Direct HDL Cholesterol 25-OH Vitamin D Total PTH Intact Urine pH Urine WBC (Auto) Urine Creatinine Urine Total Protein Fluid Total Protein Vancomycin Trough Rheumatoid Factor Complement C4 Miscellaneous Test Crossmatch 11/15/16 11/15/16 11/16/16 21:28 23:20 11:44 WBC RBC Hgb Hct MCV MCH MCHC RDW Plt Count Lymph % (Auto) [place] % (Auto) Lymph # [place] # Baso # Seg Neutrophils % Seg Neuts % (Manual) Lymphocytes % (Manual) Monocytes % (Manual) Eosinophils % (Manual) Basophils % (Manual) Nucleated RBC % Seg Neutrophils # Seg Neutrophils # Man Lymphocytes # (Manual) Monocytes # (Manual) Eosinophils # (Manual) Basophils # (Manual) PT INR Fibrinogen dRVVT Confirm Interp Factor V Activity POC ABG pH 7.462 H POC ABG pCO2 POC ABG pO2 71 L ABG pO2 ABG HCO3 ABG Base Excess ABG Hemoglobin Oxyhemoglobin Sodium Potassium Chloride Carbon Dioxide BUN Creatinine Glucose POC Glucose 116 H 133 H Lactic Acid Calcium Ionized Calcium Phosphorus Magnesium Direct Bilirubin AST ALT Alkaline Phosphatase Lactate Dehydrogenase Troponin T C-Reactive Protein Total Protein Albumin Prealbumin Triglycerides Cholesterol LDL Cholesterol Direct HDL Cholesterol 25-OH Vitamin D Total PTH Intact Urine pH Urine WBC (Auto) Urine Creatinine Urine Total Protein Fluid Total Protein Vancomycin Trough Rheumatoid Factor Complement C4 Miscellaneous Test Crossmatch 11/16/16 11/16/16 11/16/16 12:20 17:05 23:35 WBC 11.7 H RBC 2.73 L Hgb 7.6 L Hct 23.7 L MCV MCH MCHC RDW 16.6 H Plt Count Lymph % (Auto) [place] % (Auto) Lymph # [place] # Baso # Seg Neutrophils % Seg Neuts % (Manual) Lymphocytes % (Manual) Monocytes % (Manual) Eosinophils % (Manual) Basophils % (Manual) Nucleated RBC % Seg Neutrophils # Seg Neutrophils # Man Lymphocytes # (Manual) Monocytes # (Manual) Eosinophils # (Manual) Basophils # (Manual) PT INR Fibrinogen dRVVT Confirm Interp Factor V Activity POC ABG pH POC ABG pCO2 POC ABG pO2 ABG pO2 ABG HCO3 ABG Base Excess ABG Hemoglobin Oxyhemoglobin Sodium Potassium Chloride Carbon Dioxide BUN Creatinine Glucose POC Glucose 154 H 125 H Lactic Acid Calcium Ionized Calcium Phosphorus Magnesium Direct Bilirubin AST ALT Alkaline Phosphatase Lactate Dehydrogenase Troponin T C-Reactive Protein Total Protein Albumin Prealbumin Triglycerides Cholesterol LDL Cholesterol Direct HDL Cholesterol 25-OH Vitamin D Total PTH Intact Urine pH Urine WBC (Auto) Urine Creatinine Urine Total Protein Fluid Total Protein Vancomycin Trough Rheumatoid Factor Complement C4 Miscellaneous Test Crossmatch 11/17/16 11/17/16 11/17/16 03:20 03:20 03:20 WBC RBC 2.55 L Hgb 7.3 L Hct 21.9 L MCV MCH MCHC RDW 16.6 H Plt Count Lymph % (Auto) [place] % (Auto) 11.5 H Lymph # [place] # 1.1 H Baso # Seg Neutrophils % Seg Neuts % (Manual) Lymphocytes % (Manual) Monocytes % (Manual) Eosinophils % (Manual) Basophils % (Manual) Nucleated RBC % Seg Neutrophils # Seg Neutrophils # Man Lymphocytes # (Manual) Monocytes # (Manual) Eosinophils # (Manual) Basophils # (Manual) PT 16.8 H INR 1.37 H Fibrinogen dRVVT Confirm Interp Factor V Activity POC ABG pH POC ABG pCO2 POC ABG pO2 ABG pO2 ABG HCO3 ABG Base Excess ABG Hemoglobin Oxyhemoglobin Sodium Potassium 3.5 L Chloride Carbon Dioxide BUN 21 H Creatinine Glucose POC Glucose Lactic Acid Calcium 7.9 L Ionized Calcium Phosphorus Magnesium Direct Bilirubin AST ALT Alkaline Phosphatase Lactate Dehydrogenase Troponin T C-Reactive Protein Total Protein Albumin Prealbumin Triglycerides Cholesterol LDL Cholesterol Direct HDL Cholesterol 25-OH Vitamin D Total PTH Intact Urine pH Urine WBC (Auto) Urine Creatinine Urine Total Protein Fluid Total Protein Vancomycin Trough Rheumatoid Factor Complement C4 Miscellaneous Test Crossmatch 11/17/16 11/17/16 11/17/16 06:34 11:21 21:22 WBC RBC Hgb Hct MCV MCH MCHC RDW Plt Count Lymph % (Auto) [place] % (Auto) Lymph # [place] # Baso # Seg Neutrophils % Seg Neuts % (Manual) Lymphocytes % (Manual) Monocytes % (Manual) Eosinophils % (Manual) Basophils % (Manual) Nucleated RBC % Seg Neutrophils # Seg Neutrophils # Man Lymphocytes # (Manual) Monocytes # (Manual) Eosinophils # (Manual) Basophils # (Manual) PT INR Fibrinogen dRVVT Confirm Interp Factor V Activity POC ABG pH 7.467 H POC ABG pCO2 POC ABG pO2 73 L ABG pO2 ABG HCO3 ABG Base Excess ABG Hemoglobin Oxyhemoglobin Sodium Potassium Chloride Carbon Dioxide BUN Creatinine Glucose POC Glucose 121 H 119 H Lactic Acid Calcium Ionized Calcium Phosphorus Magnesium Direct Bilirubin AST ALT Alkaline Phosphatase Lactate Dehydrogenase Troponin T C-Reactive Protein Total Protein Albumin Prealbumin Triglycerides Cholesterol LDL Cholesterol Direct HDL Cholesterol 25-OH Vitamin D Total PTH Intact Urine pH Urine WBC (Auto) Urine Creatinine Urine Total Protein Fluid Total Protein Vancomycin Trough Rheumatoid Factor Complement C4 Miscellaneous Test Crossmatch 11/18/16 11/18/16 11/19/16 12:16 17:19 00:00 WBC RBC Hgb Hct MCV MCH MCHC RDW Plt Count Lymph % (Auto) [place] % (Auto) Lymph # [place] # Baso # Seg Neutrophils % Seg Neuts % (Manual) Lymphocytes % (Manual) Monocytes % (Manual) Eosinophils % (Manual) Basophils % (Manual) Nucleated RBC % Seg Neutrophils # Seg Neutrophils # Man Lymphocytes # (Manual) Monocytes # (Manual) Eosinophils # (Manual) Basophils # (Manual) PT INR Fibrinogen dRVVT Confirm Interp Factor V Activity POC ABG pH POC ABG pCO2 POC ABG pO2 ABG pO2 ABG HCO3 ABG Base Excess ABG Hemoglobin Oxyhemoglobin Sodium Potassium Chloride Carbon Dioxide BUN Creatinine Glucose POC Glucose 124 H 162 H 139 H Lactic Acid Calcium Ionized Calcium Phosphorus Magnesium Direct Bilirubin AST ALT Alkaline Phosphatase Lactate Dehydrogenase Troponin T C-Reactive Protein Total Protein Albumin Prealbumin Triglycerides Cholesterol LDL Cholesterol Direct HDL Cholesterol 25-OH Vitamin D Total PTH Intact Urine pH Urine WBC (Auto) Urine Creatinine Urine Total Protein Fluid Total Protein Vancomycin Trough Rheumatoid Factor Complement C4 Miscellaneous Test Crossmatch 11/19/16 11/19/16 11/20/16 05:00 12:43 00:40 WBC RBC Hgb Hct MCV MCH MCHC RDW Plt Count Lymph % (Auto) [place] % (Auto) Lymph # [place] # Baso # Seg Neutrophils % Seg Neuts % (Manual) Lymphocytes % (Manual) Monocytes % (Manual) Eosinophils % (Manual) Basophils % (Manual) Nucleated RBC % Seg Neutrophils # Seg Neutrophils # Man Lymphocytes # (Manual) Monocytes # (Manual) Eosinophils # (Manual) Basophils # (Manual) PT INR Fibrinogen dRVVT Confirm Interp Factor V Activity POC ABG pH POC ABG pCO2 POC ABG pO2 ABG pO2 ABG HCO3 ABG Base Excess ABG Hemoglobin Oxyhemoglobin Sodium Potassium Chloride Carbon Dioxide BUN Creatinine Glucose POC Glucose 110 H 125 H 136 H Lactic Acid Calcium Ionized Calcium Phosphorus Magnesium Direct Bilirubin AST ALT Alkaline Phosphatase Lactate Dehydrogenase Troponin T C-Reactive Protein Total Protein Albumin Prealbumin Triglycerides Cholesterol LDL Cholesterol Direct HDL Cholesterol 25-OH Vitamin D Total PTH Intact Urine pH Urine WBC (Auto) Urine Creatinine Urine Total Protein Fluid Total Protein Vancomycin Trough Rheumatoid Factor Complement C4 Miscellaneous Test Crossmatch 11/20/16 11/20/16 11/20/16 05:00 05:00 05:51 WBC 13.1 H RBC 2.74 L Hgb 7.7 L Hct 23.6 L MCV MCH MCHC RDW 16.9 H Plt Count Lymph % (Auto) [place] % (Auto) 10.8 H Lymph # [place] # 1.4 H Baso # Seg Neutrophils % Seg Neuts % (Manual) Lymphocytes % (Manual) Monocytes % (Manual) Eosinophils % (Manual) Basophils % (Manual) Nucleated RBC % Seg Neutrophils # 7.9 H Seg Neutrophils # Man Lymphocytes # (Manual) Monocytes # (Manual) Eosinophils # (Manual) Basophils # (Manual) PT INR Fibrinogen dRVVT Confirm Interp Factor V Activity POC ABG pH POC ABG pCO2 POC ABG pO2 ABG pO2 ABG HCO3 ABG Base Excess ABG Hemoglobin Oxyhemoglobin Sodium Potassium Chloride Carbon Dioxide BUN 31 H Creatinine 1.8 H Glucose 129 H POC Glucose 133 H Lactic Acid Calcium Ionized Calcium Phosphorus Magnesium Direct Bilirubin AST ALT Alkaline Phosphatase Lactate Dehydrogenase Troponin T C-Reactive Protein Total Protein Albumin Prealbumin Triglycerides Cholesterol LDL Cholesterol Direct HDL Cholesterol 25-OH Vitamin D Total PTH Intact Urine pH Urine WBC (Auto) Urine Creatinine Urine Total Protein Fluid Total Protein Vancomycin Trough Rheumatoid Factor Complement C4 Miscellaneous Test Crossmatch 11/20/16 11/20/16 11/21/16 12:40 18:10 01:20 WBC RBC Hgb Hct MCV MCH MCHC RDW Plt Count Lymph % (Auto) [place] % (Auto) Lymph # [place] # Baso # Seg Neutrophils % Seg Neuts % (Manual) Lymphocytes % (Manual) Monocytes % (Manual) Eosinophils % (Manual) Basophils % (Manual) Nucleated RBC % Seg Neutrophils # Seg Neutrophils # Man Lymphocytes # (Manual) Monocytes # (Manual) Eosinophils # (Manual) Basophils # (Manual) PT INR Fibrinogen dRVVT Confirm Interp Factor V Activity POC ABG pH POC ABG pCO2 POC ABG pO2 ABG pO2 ABG HCO3 ABG Base Excess ABG Hemoglobin Oxyhemoglobin Sodium Potassium Chloride Carbon Dioxide BUN Creatinine Glucose POC Glucose 134 H 138 H 136 H Lactic Acid Calcium Ionized Calcium Phosphorus Magnesium Direct Bilirubin AST ALT Alkaline Phosphatase Lactate Dehydrogenase Troponin T C-Reactive Protein Total Protein Albumin Prealbumin Triglycerides Cholesterol LDL Cholesterol Direct HDL Cholesterol 25-OH Vitamin D Total PTH Intact Urine pH Urine WBC (Auto) Urine Creatinine Urine Total Protein Fluid Total Protein Vancomycin Trough Rheumatoid Factor Complement C4 Miscellaneous Test Crossmatch 11/21/16 11/21/16 11/21/16 07:04 07:45 07:45 WBC 22.0 H RBC 2.91 L Hgb 8.2 L Hct 25.4 L MCV MCH MCHC RDW 17.1 H Plt Count Lymph % (Auto) [place] % (Auto) Lymph # [place] # Baso # Seg Neutrophils % Seg Neuts % (Manual) Lymphocytes % (Manual) 8.0 L Monocytes % (Manual) Eosinophils % (Manual) Basophils % (Manual) Nucleated RBC % Seg Neutrophils # Seg Neutrophils # Man 14.7 H Lymphocytes # (Manual) Monocytes # (Manual) 1.1 H Eosinophils # (Manual) Basophils # (Manual) PT INR Fibrinogen dRVVT Confirm Interp Factor V Activity POC ABG pH POC ABG pCO2 POC ABG pO2 ABG pO2 ABG HCO3 ABG Base Excess ABG Hemoglobin Oxyhemoglobin Sodium Potassium Chloride Carbon Dioxide BUN 42 H Creatinine 2.0 H Glucose POC Glucose 108 H Lactic Acid Calcium Ionized Calcium Phosphorus Magnesium Direct Bilirubin AST ALT Alkaline Phosphatase Lactate Dehydrogenase Troponin T C-Reactive Protein Total Protein Albumin Prealbumin Triglycerides Cholesterol LDL Cholesterol Direct HDL Cholesterol 25-OH Vitamin D Total PTH Intact Urine pH Urine WBC (Auto) Urine Creatinine Urine Total Protein Fluid Total Protein Vancomycin Trough Rheumatoid Factor Complement C4 Miscellaneous Test Crossmatch 11/21/16 11/21/16 11/21/16 08:38 10:09 11:20 WBC RBC Hgb Hct MCV MCH MCHC RDW Plt Count Lymph % (Auto) [place] % (Auto) Lymph # [place] # Baso # Seg Neutrophils % Seg Neuts % (Manual) Lymphocytes % (Manual) Monocytes % (Manual) Eosinophils % (Manual) Basophils % (Manual) Nucleated RBC % Seg Neutrophils # Seg Neutrophils # Man Lymphocytes # (Manual) Monocytes # (Manual) Eosinophils # (Manual) Basophils # (Manual) PT INR Fibrinogen dRVVT Confirm Interp Factor V Activity POC ABG pH 7.346 L POC ABG pCO2 34.4 L POC ABG pO2 314 H ABG pO2 ABG HCO3 ABG Base Excess ABG Hemoglobin Oxyhemoglobin Sodium Potassium Chloride Carbon Dioxide BUN Creatinine Glucose POC Glucose 195 H 153 H Lactic Acid Calcium Ionized Calcium Phosphorus Magnesium Direct Bilirubin AST ALT Alkaline Phosphatase Lactate Dehydrogenase Troponin T C-Reactive Protein Total Protein Albumin Prealbumin Triglycerides Cholesterol LDL Cholesterol Direct HDL Cholesterol 25-OH Vitamin D Total PTH Intact Urine pH Urine WBC (Auto) Urine Creatinine Urine Total Protein Fluid Total Protein Vancomycin Trough Rheumatoid Factor Complement C4 Miscellaneous Test Crossmatch 11/21/16 11/22/16 11/22/16 23:37 04:48 05:00 WBC 29.7 H RBC 2.73 L Hgb 7.5 L Hct 24.2 L MCV MCH 27 L MCHC RDW 17.4 H Plt Count Lymph % (Auto) [place] % (Auto) Lymph # [place] # Baso # Seg Neutrophils % Seg Neuts % (Manual) Lymphocytes % (Manual) 7.0 L Monocytes % (Manual) Eosinophils % (Manual) Basophils % (Manual) Nucleated RBC % Seg Neutrophils # Seg Neutrophils # Man 15.4 H Lymphocytes # (Manual) Monocytes # (Manual) Eosinophils # (Manual) Basophils # (Manual) PT INR Fibrinogen dRVVT Confirm Interp Factor V Activity POC ABG pH POC ABG pCO2 24.6 L POC ABG pO2 189 H ABG pO2 ABG HCO3 ABG Base Excess ABG Hemoglobin Oxyhemoglobin Sodium Potassium Chloride Carbon Dioxide BUN Creatinine Glucose POC Glucose 65 L Lactic Acid Calcium Ionized Calcium Phosphorus Magnesium Direct Bilirubin AST ALT Alkaline Phosphatase Lactate Dehydrogenase Troponin T C-Reactive Protein Total Protein Albumin Prealbumin Triglycerides Cholesterol LDL Cholesterol Direct HDL Cholesterol 25-OH Vitamin D Total PTH Intact Urine pH Urine WBC (Auto) Urine Creatinine Urine Total Protein Fluid Total Protein Vancomycin Trough Rheumatoid Factor Complement C4 Miscellaneous Test Crossmatch 11/22/16 11/23/16 11/23/16 05:00 03:44 04:06 WBC RBC 2.52 L Hgb 7.2 L Hct 21.5 L MCV MCH MCHC RDW 17.1 H Plt Count Lymph % (Auto) [place] % (Auto) 12.4 H Lymph # [place] # 1.4 H Baso # Seg Neutrophils % Seg Neuts % (Manual) Lymphocytes % (Manual) Monocytes % (Manual) Eosinophils % (Manual) Basophils % (Manual) Nucleated RBC % Seg Neutrophils # Seg Neutrophils # Man Lymphocytes # (Manual) Monocytes # (Manual) Eosinophils # (Manual) Basophils # (Manual) PT INR Fibrinogen dRVVT Confirm Interp Factor V Activity POC ABG pH 7.493 H POC ABG pCO2 29.5 L POC ABG pO2 49 L ABG pO2 ABG HCO3 ABG Base Excess ABG Hemoglobin Oxyhemoglobin Sodium 134 L Potassium Chloride 95.9 L Carbon Dioxide 14 L D BUN 51 H Creatinine 2.6 H Glucose POC Glucose Lactic Acid Calcium Ionized Calcium Phosphorus Magnesium Direct Bilirubin AST ALT Alkaline Phosphatase Lactate Dehydrogenase Troponin T C-Reactive Protein Total Protein Albumin Prealbumin Triglycerides Cholesterol LDL Cholesterol Direct HDL Cholesterol 25-OH Vitamin D Total PTH Intact Urine pH Urine WBC (Auto) Urine Creatinine Urine Total Protein Fluid Total Protein Vancomycin Trough Rheumatoid Factor Complement C4 Miscellaneous Test Crossmatch 11/23/16 11/23/16 11/24/16 04:06 11:29 06:39 WBC RBC Hgb Hct MCV MCH MCHC RDW Plt Count Lymph % (Auto) [place] % (Auto) Lymph # [place] # Baso # Seg Neutrophils % Seg Neuts % (Manual) Lymphocytes % (Manual) Monocytes % (Manual) Eosinophils % (Manual) Basophils % (Manual) Nucleated RBC % Seg Neutrophils # Seg Neutrophils # Man Lymphocytes # (Manual) Monocytes # (Manual) Eosinophils # (Manual) Basophils # (Manual) PT INR Fibrinogen dRVVT Confirm Interp Factor V Activity POC ABG pH POC ABG pCO2 POC ABG pO2 ABG pO2 ABG HCO3 ABG Base Excess ABG Hemoglobin Oxyhemoglobin Sodium 136 L Potassium Chloride 95.2 L Carbon Dioxide BUN 60 H Creatinine 2.9 H Glucose POC Glucose 69 L 305 H Lactic Acid Calcium Ionized Calcium Phosphorus Magnesium 1.60 L Direct Bilirubin AST ALT Alkaline Phosphatase Lactate Dehydrogenase Troponin T C-Reactive Protein Total Protein Albumin Prealbumin Triglycerides Cholesterol LDL Cholesterol Direct HDL Cholesterol 25-OH Vitamin D Total PTH Intact Urine pH Urine WBC (Auto) Urine Creatinine Urine Total Protein Fluid Total Protein Vancomycin Trough Rheumatoid Factor Complement C4 Miscellaneous Test Crossmatch 11/24/16 11/24/16 11/24/16 06:43 08:08 08:08 WBC 11.2 H RBC 2.47 L Hgb 6.8 L Hct 20.6 L MCV MCH MCHC RDW 17.0 H Plt Count Lymph % (Auto) [place] % (Auto) 10.3 H Lymph # [place] # 1.2 H Baso # Seg Neutrophils % Seg Neuts % (Manual) Lymphocytes % (Manual) Monocytes % (Manual) Eosinophils % (Manual) Basophils % (Manual) Nucleated RBC % Seg Neutrophils # Seg Neutrophils # Man Lymphocytes # (Manual) Monocytes # (Manual) Eosinophils # (Manual) Basophils # (Manual) PT INR Fibrinogen dRVVT Confirm Interp Factor V Activity POC ABG pH POC ABG pCO2 POC ABG pO2 ABG pO2 ABG HCO3 ABG Base Excess ABG Hemoglobin Oxyhemoglobin Sodium 135 L Potassium Chloride 96.3 L Carbon Dioxide BUN 61 H Creatinine 3.1 H Glucose POC Glucose 62 L Lactic Acid Calcium 8.2 L Ionized Calcium Phosphorus Magnesium Direct Bilirubin AST ALT Alkaline Phosphatase Lactate Dehydrogenase Troponin T C-Reactive Protein Total Protein Albumin Prealbumin Triglycerides Cholesterol LDL Cholesterol Direct HDL Cholesterol 25-OH Vitamin D Total PTH Intact Urine pH Urine WBC (Auto) Urine Creatinine Urine Total Protein Fluid Total Protein Vancomycin Trough Rheumatoid Factor Complement C4 Miscellaneous Test Crossmatch 11/24/16 11/24/16 11/24/16 08:34 11:20 12:41 WBC RBC Hgb Hct MCV MCH MCHC RDW Plt Count Lymph % (Auto) [place] % (Auto) Lymph # [place] # Baso # Seg Neutrophils % Seg Neuts % (Manual) Lymphocytes % (Manual) Monocytes % (Manual) Eosinophils % (Manual) Basophils % (Manual) Nucleated RBC % Seg Neutrophils # Seg Neutrophils # Man Lymphocytes # (Manual) Monocytes # (Manual) Eosinophils # (Manual) Basophils # (Manual) PT INR Fibrinogen dRVVT Confirm Interp Factor V Activity POC ABG pH POC ABG pCO2 POC ABG pO2 ABG pO2 ABG HCO3 ABG Base Excess ABG Hemoglobin Oxyhemoglobin Sodium Potassium Chloride Carbon Dioxide BUN Creatinine Glucose POC Glucose 108 H Lactic Acid Calcium Ionized Calcium Phosphorus Magnesium 1.60 L Direct Bilirubin AST ALT Alkaline Phosphatase Lactate Dehydrogenase Troponin T C-Reactive Protein Total Protein Albumin Prealbumin Triglycerides Cholesterol LDL Cholesterol Direct HDL Cholesterol 25-OH Vitamin D Total PTH Intact Urine pH Urine WBC (Auto) Urine Creatinine Urine Total Protein Fluid Total Protein Vancomycin Trough Rheumatoid Factor Complement C4 Miscellaneous Test Crossmatch See Detail 11/25/16 11/25/16 11/25/16 00:03 04:42 04:42 WBC RBC 3.03 L Hgb 8.6 L Hct 25.3 L MCV MCH MCHC RDW 16.2 H Plt Count Lymph % (Auto) [place] % (Auto) 8.1 H Lymph # [place] # Baso # Seg Neutrophils % 71.3 H Seg Neuts % (Manual) Lymphocytes % (Manual) Monocytes % (Manual) Eosinophils % (Manual) Basophils % (Manual) Nucleated RBC % Seg Neutrophils # Seg Neutrophils # Man Lymphocytes # (Manual) Monocytes # (Manual) Eosinophils # (Manual) Basophils # (Manual) PT INR Fibrinogen dRVVT Confirm Interp Factor V Activity POC ABG pH POC ABG pCO2 POC ABG pO2 ABG pO2 ABG HCO3 ABG Base Excess ABG Hemoglobin Oxyhemoglobin Sodium Potassium Chloride Carbon Dioxide BUN 61 H Creatinine 3.0 H Glucose 102 H POC Glucose 113 H Lactic Acid Calcium 8.2 L Ionized Calcium Phosphorus Magnesium Direct Bilirubin AST ALT Alkaline Phosphatase 142 H Lactate Dehydrogenase Troponin T C-Reactive Protein Total Protein 5.7 L Albumin 1.5 L Prealbumin Triglycerides Cholesterol LDL Cholesterol Direct HDL Cholesterol 25-OH Vitamin D Total PTH Intact Urine pH Urine WBC (Auto) Urine Creatinine Urine Total Protein Fluid Total Protein Vancomycin Trough Rheumatoid Factor Complement C4 Miscellaneous Test Crossmatch 11/25/16 11/25/16 11/25/16 05:12 11:31 14:12 WBC RBC Hgb Hct MCV MCH MCHC RDW Plt Count Lymph % (Auto) [place] % (Auto) Lymph # [place] # Baso # Seg Neutrophils % Seg Neuts % (Manual) Lymphocytes % (Manual) Monocytes % (Manual) Eosinophils % (Manual) Basophils % (Manual) Nucleated RBC % Seg Neutrophils # Seg Neutrophils # Man Lymphocytes # (Manual) Monocytes # (Manual) Eosinophils # (Manual) Basophils # (Manual) PT INR Fibrinogen dRVVT Confirm Interp Factor V Activity POC ABG pH 7.487 H POC ABG pCO2 POC ABG pO2 153 H ABG pO2 ABG HCO3 ABG Base Excess ABG Hemoglobin Oxyhemoglobin Sodium Potassium Chloride Carbon Dioxide BUN Creatinine Glucose POC Glucose 131 H 140 H Lactic Acid Calcium Ionized Calcium Phosphorus Magnesium Direct Bilirubin AST ALT Alkaline Phosphatase Lactate Dehydrogenase Troponin T C-Reactive Protein Total Protein Albumin Prealbumin Triglycerides Cholesterol LDL Cholesterol Direct HDL Cholesterol 25-OH Vitamin D Total PTH Intact Urine pH Urine WBC (Auto) Urine Creatinine Urine Total Protein Fluid Total Protein Vancomycin Trough Rheumatoid Factor Complement C4 Miscellaneous Test Crossmatch 11/25/16 11/26/16 11/26/16 17:23 00:09 05:13 WBC RBC 2.94 L Hgb 8.4 L Hct 24.6 L MCV MCH MCHC RDW 16.4 H Plt Count Lymph % (Auto) [place] % (Auto) 12.3 H Lymph # [place] # 1.1 H Baso # Seg Neutrophils % Seg Neuts % (Manual) Lymphocytes % (Manual) Monocytes % (Manual) Eosinophils % (Manual) Basophils % (Manual) Nucleated RBC % Seg Neutrophils # Seg Neutrophils # Man Lymphocytes # (Manual) Monocytes # (Manual) Eosinophils # (Manual) Basophils # (Manual) PT INR Fibrinogen dRVVT Confirm Interp Factor V Activity POC ABG pH POC ABG pCO2 POC ABG pO2 ABG pO2 ABG HCO3 ABG Base Excess ABG Hemoglobin Oxyhemoglobin Sodium Potassium Chloride Carbon Dioxide BUN Creatinine Glucose POC Glucose 146 H 112 H Lactic Acid Calcium Ionized Calcium Phosphorus Magnesium Direct Bilirubin AST ALT Alkaline Phosphatase Lactate Dehydrogenase Troponin T C-Reactive Protein Total Protein Albumin Prealbumin Triglycerides Cholesterol LDL Cholesterol Direct HDL Cholesterol 25-OH Vitamin D Total PTH Intact Urine pH Urine WBC (Auto) Urine Creatinine Urine Total Protein Fluid Total Protein Vancomycin Trough Rheumatoid Factor Complement C4 Miscellaneous Test Crossmatch 11/26/16 11/26/16 11/26/16 05:13 05:28 11:53 WBC RBC Hgb Hct MCV MCH MCHC RDW Plt Count Lymph % (Auto) [place] % (Auto) Lymph # [place] # Baso # Seg Neutrophils % Seg Neuts % (Manual) Lymphocytes % (Manual) Monocytes % (Manual) Eosinophils % (Manual) Basophils % (Manual) Nucleated RBC % Seg Neutrophils # Seg Neutrophils # Man Lymphocytes # (Manual) Monocytes # (Manual) Eosinophils # (Manual) Basophils # (Manual) PT INR Fibrinogen dRVVT Confirm Interp Factor V Activity POC ABG pH POC ABG pCO2 POC ABG pO2 ABG pO2 ABG HCO3 ABG Base Excess ABG Hemoglobin Oxyhemoglobin Sodium Potassium Chloride 97.8 L Carbon Dioxide BUN 37 H Creatinine 2.0 H Glucose 109 H POC Glucose 117 H 111 H Lactic Acid Calcium 7.9 L Ionized Calcium Phosphorus 1.80 L D Magnesium Direct Bilirubin AST ALT Alkaline Phosphatase Lactate Dehydrogenase Troponin T C-Reactive Protein Total Protein Albumin Prealbumin Triglycerides Cholesterol LDL Cholesterol Direct HDL Cholesterol 25-OH Vitamin D Total PTH Intact Urine pH Urine WBC (Auto) Urine Creatinine Urine Total Protein Fluid Total Protein Vancomycin Trough Rheumatoid Factor Complement C4 Miscellaneous Test Crossmatch 11/26/16 11/27/16 11/27/16 17:14 04:50 06:02 WBC RBC Hgb Hct MCV MCH MCHC RDW Plt Count Lymph % (Auto) [place] % (Auto) Lymph # [place] # Baso # Seg Neutrophils % Seg Neuts % (Manual) Lymphocytes % (Manual) Monocytes % (Manual) Eosinophils % (Manual) Basophils % (Manual) Nucleated RBC % Seg Neutrophils # Seg Neutrophils # Man Lymphocytes # (Manual) Monocytes # (Manual) Eosinophils # (Manual) Basophils # (Manual) PT INR Fibrinogen dRVVT Confirm Interp Factor V Activity POC ABG pH POC ABG pCO2 POC ABG pO2 ABG pO2 75.2 L ABG HCO3 26.4 H ABG Base Excess ABG Hemoglobin 7.6 L Oxyhemoglobin 94.8 L Sodium Potassium Chloride Carbon Dioxide BUN 49 H Creatinine 2.3 H Glucose POC Glucose 115 H Lactic Acid Calcium Ionized Calcium Phosphorus 1.50 L Magnesium Direct Bilirubin AST ALT Alkaline Phosphatase Lactate Dehydrogenase Troponin T C-Reactive Protein Total Protein Albumin Prealbumin Triglycerides Cholesterol LDL Cholesterol Direct HDL Cholesterol 25-OH Vitamin D Total PTH Intact Urine pH Urine WBC (Auto) Urine Creatinine Urine Total Protein Fluid Total Protein Vancomycin Trough Rheumatoid Factor Complement C4 Miscellaneous Test Crossmatch 11/27/16 11/27/16 11/27/16 06:02 11:25 17:25 WBC 11.6 H RBC 2.75 L Hgb 7.6 L Hct 23.4 L MCV MCH MCHC RDW 16.5 H Plt Count Lymph % (Auto) [place] % (Auto) Lymph # [place] # Baso # Seg Neutrophils % Seg Neuts % (Manual) Lymphocytes % (Manual) Monocytes % (Manual) Eosinophils % (Manual) Basophils % (Manual) Nucleated RBC % Seg Neutrophils # Seg Neutrophils # Man Lymphocytes # (Manual) Monocytes # (Manual) Eosinophils # (Manual) Basophils # (Manual) PT INR Fibrinogen dRVVT Confirm Interp Factor V Activity POC ABG pH POC ABG pCO2 POC ABG pO2 ABG pO2 ABG HCO3 ABG Base Excess ABG Hemoglobin Oxyhemoglobin Sodium Potassium Chloride Carbon Dioxide BUN Creatinine Glucose POC Glucose 114 H 126 H Lactic Acid Calcium Ionized Calcium Phosphorus Magnesium Direct Bilirubin AST ALT Alkaline Phosphatase Lactate Dehydrogenase Troponin T C-Reactive Protein Total Protein Albumin Prealbumin Triglycerides Cholesterol LDL Cholesterol Direct HDL Cholesterol 25-OH Vitamin D Total PTH Intact Urine pH Urine WBC (Auto) Urine Creatinine Urine Total Protein Fluid Total Protein Vancomycin Trough Rheumatoid Factor Complement C4 Miscellaneous Test Crossmatch 11/28/16 11/28/16 11/28/16 04:45 05:33 05:44 WBC RBC Hgb Hct MCV MCH MCHC RDW Plt Count Lymph % (Auto) [place] % (Auto) Lymph # [place] # Baso # Seg Neutrophils % Seg Neuts % (Manual) Lymphocytes % (Manual) Monocytes % (Manual) Eosinophils % (Manual) Basophils % (Manual) Nucleated RBC % Seg Neutrophils # Seg Neutrophils # Man Lymphocytes # (Manual) Monocytes # (Manual) Eosinophils # (Manual) Basophils # (Manual) PT INR Fibrinogen dRVVT Confirm Interp Factor V Activity POC ABG pH POC ABG pCO2 POC ABG pO2 ABG pO2 99.3 H ABG HCO3 ABG Base Excess ABG Hemoglobin 8.3 L Oxyhemoglobin Sodium Potassium Chloride Carbon Dioxide BUN 63 H Creatinine 2.4 H Glucose 102 H POC Glucose 108 H Lactic Acid Calcium Ionized Calcium Phosphorus 1.80 L Magnesium Direct Bilirubin AST ALT Alkaline Phosphatase Lactate Dehydrogenase Troponin T C-Reactive Protein Total Protein Albumin Prealbumin Triglycerides Cholesterol LDL Cholesterol Direct HDL Cholesterol 25-OH Vitamin D Total PTH Intact Urine pH Urine WBC (Auto) Urine Creatinine Urine Total Protein Fluid Total Protein Vancomycin Trough Rheumatoid Factor Complement C4 Miscellaneous Test Crossmatch 11/28/16 11/28/16 11/28/16 12:31 16:09 23:46 WBC RBC Hgb Hct MCV MCH MCHC RDW Plt Count Lymph % (Auto) [place] % (Auto) Lymph # [place] # Baso # Seg Neutrophils % Seg Neuts % (Manual) Lymphocytes % (Manual) Monocytes % (Manual) Eosinophils % (Manual) Basophils % (Manual) Nucleated RBC % Seg Neutrophils # Seg Neutrophils # Man Lymphocytes # (Manual) Monocytes # (Manual) Eosinophils # (Manual) Basophils # (Manual) PT INR Fibrinogen dRVVT Confirm Interp Factor V Activity POC ABG pH POC ABG pCO2 POC ABG pO2 ABG pO2 ABG HCO3 ABG Base Excess ABG Hemoglobin Oxyhemoglobin Sodium Potassium Chloride Carbon Dioxide BUN Creatinine Glucose POC Glucose 126 H 111 H 119 H Lactic Acid Calcium Ionized Calcium Phosphorus Magnesium Direct Bilirubin AST ALT Alkaline Phosphatase Lactate Dehydrogenase Troponin T C-Reactive Protein Total Protein Albumin Prealbumin Triglycerides Cholesterol LDL Cholesterol Direct HDL Cholesterol 25-OH Vitamin D Total PTH Intact Urine pH Urine WBC (Auto) Urine Creatinine Urine Total Protein Fluid Total Protein Vancomycin Trough Rheumatoid Factor Complement C4 Miscellaneous Test Crossmatch 11/29/16 11/29/16 11/29/16 03:33 04:52 05:10 WBC RBC Hgb Hct MCV MCH MCHC RDW Plt Count Lymph % (Auto) [place] % (Auto) Lymph # [place] # Baso # Seg Neutrophils % Seg Neuts % (Manual) Lymphocytes % (Manual) Monocytes % (Manual) Eosinophils % (Manual) Basophils % (Manual) Nucleated RBC % Seg Neutrophils # Seg Neutrophils # Man Lymphocytes # (Manual) Monocytes # (Manual) Eosinophils # (Manual) Basophils # (Manual) PT INR Fibrinogen dRVVT Confirm Interp Factor V Activity POC ABG pH POC ABG pCO2 POC ABG pO2 ABG pO2 ABG HCO3 ABG Base Excess ABG Hemoglobin 7.0 L Oxyhemoglobin 94.9 L Sodium Potassium Chloride Carbon Dioxide BUN 73 H Creatinine 2.7 H Glucose POC Glucose 108 H Lactic Acid Calcium Ionized Calcium Phosphorus Magnesium Direct Bilirubin AST ALT Alkaline Phosphatase Lactate Dehydrogenase Troponin T C-Reactive Protein Total Protein Albumin Prealbumin Triglycerides Cholesterol LDL Cholesterol Direct HDL Cholesterol 25-OH Vitamin D Total PTH Intact Urine pH Urine WBC (Auto) Urine Creatinine Urine Total Protein Fluid Total Protein Vancomycin Trough Rheumatoid Factor Complement C4 Miscellaneous Test Crossmatch 11/29/16 11/29/16 11/29/16 12:16 18:05 23:46 WBC RBC Hgb Hct MCV MCH MCHC RDW Plt Count Lymph % (Auto) [place] % (Auto) Lymph # [place] # Baso # Seg Neutrophils % Seg Neuts % (Manual) Lymphocytes % (Manual) Monocytes % (Manual) Eosinophils % (Manual) Basophils % (Manual) Nucleated RBC % Seg Neutrophils # Seg Neutrophils # Man Lymphocytes # (Manual) Monocytes # (Manual) Eosinophils # (Manual) Basophils # (Manual) PT INR Fibrinogen dRVVT Confirm Interp Factor V Activity POC ABG pH POC ABG pCO2 POC ABG pO2 ABG pO2 ABG HCO3 ABG Base Excess ABG Hemoglobin Oxyhemoglobin Sodium Potassium Chloride Carbon Dioxide BUN Creatinine Glucose POC Glucose 133 H 146 H 141 H Lactic Acid Calcium Ionized Calcium Phosphorus Magnesium Direct Bilirubin AST ALT Alkaline Phosphatase Lactate Dehydrogenase Troponin T C-Reactive Protein Total Protein Albumin Prealbumin Triglycerides Cholesterol LDL Cholesterol Direct HDL Cholesterol 25-OH Vitamin D Total PTH Intact Urine pH Urine WBC (Auto) Urine Creatinine Urine Total Protein Fluid Total Protein Vancomycin Trough Rheumatoid Factor Complement C4 Miscellaneous Test Crossmatch 11/30/16 11/30/16 11/30/16 04:17 04:17 04:32 WBC 12.0 H RBC 2.80 L Hgb 7.8 L Hct 23.6 L MCV MCH MCHC RDW 16.6 H Plt Count Lymph % (Auto) [place] % (Auto) 11.3 H Lymph # [place] # 1.4 H Baso # Seg Neutrophils % Seg Neuts % (Manual) Lymphocytes % (Manual) Monocytes % (Manual) Eosinophils % (Manual) Basophils % (Manual) Nucleated RBC % Seg Neutrophils # 8.2 H Seg Neutrophils # Man Lymphocytes # (Manual) Monocytes # (Manual) Eosinophils # (Manual) Basophils # (Manual) PT INR Fibrinogen dRVVT Confirm Interp Factor V Activity POC ABG pH POC ABG pCO2 POC ABG pO2 ABG pO2 ABG HCO3 ABG Base Excess ABG Hemoglobin Oxyhemoglobin Sodium 169 H* D Potassium 5.1 H Chloride 121.5 H Carbon Dioxide BUN 34 H Creatinine 1.3 H D Glucose 133 H POC Glucose 131 H Lactic Acid Calcium 10.3 H Ionized Calcium Phosphorus Magnesium Direct Bilirubin AST ALT Alkaline Phosphatase Lactate Dehydrogenase Troponin T C-Reactive Protein Total Protein Albumin Prealbumin Triglycerides Cholesterol LDL Cholesterol Direct HDL Cholesterol 25-OH Vitamin D Total PTH Intact Urine pH Urine WBC (Auto) Urine Creatinine Urine Total Protein Fluid Total Protein Vancomycin Trough Rheumatoid Factor Complement C4 Miscellaneous Test Crossmatch 11/30/16 11/30/16 11/30/16 05:45 11:10 17:26 WBC RBC Hgb Hct MCV MCH MCHC RDW Plt Count Lymph % (Auto) [place] % (Auto) Lymph # [place] # Baso # Seg Neutrophils % Seg Neuts % (Manual) Lymphocytes % (Manual) Monocytes % (Manual) Eosinophils % (Manual) Basophils % (Manual) Nucleated RBC % Seg Neutrophils # Seg Neutrophils # Man Lymphocytes # (Manual) Monocytes # (Manual) Eosinophils # (Manual) Basophils # (Manual) PT INR Fibrinogen dRVVT Confirm Interp Factor V Activity POC ABG pH POC ABG pCO2 POC ABG pO2 ABG pO2 ABG HCO3 ABG Base Excess ABG Hemoglobin Oxyhemoglobin Sodium Potassium Chloride Carbon Dioxide BUN 45 H Creatinine 1.6 H Glucose 131 H POC Glucose 146 H 134 H Lactic Acid Calcium Ionized Calcium Phosphorus Magnesium Direct Bilirubin AST ALT Alkaline Phosphatase Lactate Dehydrogenase Troponin T C-Reactive Protein Total Protein Albumin Prealbumin Triglycerides Cholesterol LDL Cholesterol Direct HDL Cholesterol 25-OH Vitamin D Total PTH Intact Urine pH Urine WBC (Auto) Urine Creatinine Urine Total Protein Fluid Total Protein Vancomycin Trough Rheumatoid Factor Complement C4 Miscellaneous Test Crossmatch 11/30/16 12/01/16 12/01/16 23:35 00:06 03:35 WBC RBC Hgb Hct MCV MCH MCHC RDW Plt Count Lymph % (Auto) [place] % (Auto) Lymph # [place] # Baso # Seg Neutrophils % Seg Neuts % (Manual) Lymphocytes % (Manual) Monocytes % (Manual) Eosinophils % (Manual) Basophils % (Manual) Nucleated RBC % Seg Neutrophils # Seg Neutrophils # Man Lymphocytes # (Manual) Monocytes # (Manual) Eosinophils # (Manual) Basophils # (Manual) PT INR Fibrinogen dRVVT Confirm Interp Factor V Activity POC ABG pH POC ABG pCO2 POC ABG pO2 ABG pO2 ABG HCO3 ABG Base Excess ABG Hemoglobin 6.9 L Oxyhemoglobin Sodium Potassium Chloride Carbon Dioxide BUN 58 H Creatinine 1.8 H Glucose 146 H POC Glucose 151 H Lactic Acid Calcium Ionized Calcium Phosphorus Magnesium Direct Bilirubin AST ALT Alkaline Phosphatase Lactate Dehydrogenase Troponin T C-Reactive Protein Total Protein Albumin Prealbumin Triglycerides Cholesterol LDL Cholesterol Direct HDL Cholesterol 25-OH Vitamin D Total PTH Intact Urine pH Urine WBC (Auto) Urine Creatinine Urine Total Protein Fluid Total Protein Vancomycin Trough Rheumatoid Factor Complement C4 Miscellaneous Test Crossmatch 12/01/16 12/01/16 12/01/16 03:35 05:47 11:52 WBC 12.3 H RBC 2.82 L Hgb 7.8 L Hct 23.7 L MCV MCH MCHC RDW 16.7 H Plt Count Lymph % (Auto) [place] % (Auto) 9.8 H Lymph # [place] # 1.2 H Baso # Seg Neutrophils % Seg Neuts % (Manual) Lymphocytes % (Manual) Monocytes % (Manual) Eosinophils % (Manual) Basophils % (Manual) Nucleated RBC % Seg Neutrophils # 8.4 H Seg Neutrophils # Man Lymphocytes # (Manual) Monocytes # (Manual) Eosinophils # (Manual) Basophils # (Manual) PT INR Fibrinogen dRVVT Confirm Interp Factor V Activity POC ABG pH POC ABG pCO2 POC ABG pO2 ABG pO2 ABG HCO3 ABG Base Excess ABG Hemoglobin Oxyhemoglobin Sodium Potassium Chloride Carbon Dioxide BUN Creatinine Glucose POC Glucose 152 H 152 H Lactic Acid Calcium Ionized Calcium Phosphorus Magnesium Direct Bilirubin AST ALT Alkaline Phosphatase Lactate Dehydrogenase Troponin T C-Reactive Protein Total Protein Albumin Prealbumin Triglycerides Cholesterol LDL Cholesterol Direct HDL Cholesterol 25-OH Vitamin D Total PTH Intact Urine pH Urine WBC (Auto) Urine Creatinine Urine Total Protein Fluid Total Protein Vancomycin Trough Rheumatoid Factor Complement C4 Miscellaneous Test Crossmatch 12/01/16 12/01/16 12/02/16 17:40 23:41 05:00 WBC RBC Hgb Hct MCV MCH MCHC RDW Plt Count Lymph % (Auto) [place] % (Auto) Lymph # [place] # Baso # Seg Neutrophils % Seg Neuts % (Manual) Lymphocytes % (Manual) Monocytes % (Manual) Eosinophils % (Manual) Basophils % (Manual) Nucleated RBC % Seg Neutrophils # Seg Neutrophils # Man Lymphocytes # (Manual) Monocytes # (Manual) Eosinophils # (Manual) Basophils # (Manual) PT INR Fibrinogen dRVVT Confirm Interp Factor V Activity POC ABG pH POC ABG pCO2 POC ABG pO2 ABG pO2 ABG HCO3 ABG Base Excess ABG Hemoglobin Oxyhemoglobin Sodium Potassium Chloride Carbon Dioxide BUN 45 H Creatinine Glucose 115 H POC Glucose 140 H 144 H Lactic Acid Calcium Ionized Calcium Phosphorus Magnesium Direct Bilirubin AST ALT Alkaline Phosphatase Lactate Dehydrogenase Troponin T C-Reactive Protein Total Protein Albumin Prealbumin Triglycerides Cholesterol LDL Cholesterol Direct HDL Cholesterol 25-OH Vitamin D Total PTH Intact Urine pH Urine WBC (Auto) Urine Creatinine Urine Total Protein Fluid Total Protein Vancomycin Trough Rheumatoid Factor Complement C4 Miscellaneous Test Crossmatch 12/02/16 12/02/16 12/02/16 05:31 11:20 17:38 WBC RBC Hgb Hct MCV MCH MCHC RDW Plt Count Lymph % (Auto) [place] % (Auto) Lymph # [place] # Baso # Seg Neutrophils % Seg Neuts % (Manual) Lymphocytes % (Manual) Monocytes % (Manual) Eosinophils % (Manual) Basophils % (Manual) Nucleated RBC % Seg Neutrophils # Seg Neutrophils # Man Lymphocytes # (Manual) Monocytes # (Manual) Eosinophils # (Manual) Basophils # (Manual) PT INR Fibrinogen dRVVT Confirm Interp Factor V Activity POC ABG pH POC ABG pCO2 POC ABG pO2 ABG pO2 ABG HCO3 ABG Base Excess ABG Hemoglobin Oxyhemoglobin Sodium Potassium Chloride Carbon Dioxide BUN Creatinine Glucose POC Glucose 136 H 177 H 139 H Lactic Acid Calcium Ionized Calcium Phosphorus Magnesium Direct Bilirubin AST ALT Alkaline Phosphatase Lactate Dehydrogenase Troponin T C-Reactive Protein Total Protein Albumin Prealbumin Triglycerides Cholesterol LDL Cholesterol Direct HDL Cholesterol 25-OH Vitamin D Total PTH Intact Urine pH Urine WBC (Auto) Urine Creatinine Urine Total Protein Fluid Total Protein Vancomycin Trough Rheumatoid Factor Complement C4 Miscellaneous Test Crossmatch 12/02/16 12/03/16 12/03/16 23:43 04:00 04:00 WBC 20.4 H RBC 2.74 L Hgb 7.4 L Hct 23.6 L MCV MCH 27 L MCHC RDW 17.1 H Plt Count Lymph % (Auto) [place] % (Auto) Lymph # [place] # Baso # Seg Neutrophils % Seg Neuts % (Manual) 31.0 L Lymphocytes % (Manual) Monocytes % (Manual) Eosinophils % (Manual) Basophils % (Manual) Nucleated RBC % Seg Neutrophils # Seg Neutrophils # Man Lymphocytes # (Manual) Monocytes # (Manual) Eosinophils # (Manual) Basophils # (Manual) PT INR Fibrinogen dRVVT Confirm Interp Factor V Activity POC ABG pH POC ABG pCO2 POC ABG pO2 ABG pO2 ABG HCO3 ABG Base Excess ABG Hemoglobin Oxyhemoglobin Sodium Potassium Chloride Carbon Dioxide BUN 61 H Creatinine 1.6 H Glucose 119 H POC Glucose 158 H Lactic Acid Calcium Ionized Calcium Phosphorus Magnesium Direct Bilirubin AST ALT Alkaline Phosphatase Lactate Dehydrogenase Troponin T C-Reactive Protein Total Protein Albumin Prealbumin Triglycerides Cholesterol LDL Cholesterol Direct HDL Cholesterol 25-OH Vitamin D Total PTH Intact Urine pH Urine WBC (Auto) Urine Creatinine Urine Total Protein Fluid Total Protein Vancomycin Trough Rheumatoid Factor Complement C4 Miscellaneous Test Crossmatch 12/03/16 12/03/16 12/03/16 05:02 12:11 18:16 WBC RBC Hgb Hct MCV MCH MCHC RDW Plt Count Lymph % (Auto) [place] % (Auto) Lymph # [place] # Baso # Seg Neutrophils % Seg Neuts % (Manual) Lymphocytes % (Manual) Monocytes % (Manual) Eosinophils % (Manual) Basophils % (Manual) Nucleated RBC % Seg Neutrophils # Seg Neutrophils # Man Lymphocytes # (Manual) Monocytes # (Manual) Eosinophils # (Manual) Basophils # (Manual) PT INR Fibrinogen dRVVT Confirm Interp Factor V Activity POC ABG pH POC ABG pCO2 POC ABG pO2 ABG pO2 ABG HCO3 ABG Base Excess ABG Hemoglobin Oxyhemoglobin Sodium Potassium Chloride Carbon Dioxide BUN Creatinine Glucose POC Glucose 146 H 157 H 124 H Lactic Acid Calcium Ionized Calcium Phosphorus Magnesium Direct Bilirubin AST ALT Alkaline Phosphatase Lactate Dehydrogenase Troponin T C-Reactive Protein Total Protein Albumin Prealbumin Triglycerides Cholesterol LDL Cholesterol Direct HDL Cholesterol 25-OH Vitamin D Total PTH Intact Urine pH Urine WBC (Auto) Urine Creatinine Urine Total Protein Fluid Total Protein Vancomycin Trough Rheumatoid Factor Complement C4 Miscellaneous Test Crossmatch 12/03/16 12/04/16 12/04/16 23:41 04:00 04:45 WBC RBC Hgb Hct MCV MCH MCHC RDW Plt Count Lymph % (Auto) [place] % (Auto) Lymph # [place] # Baso # Seg Neutrophils % Seg Neuts % (Manual) Lymphocytes % (Manual) Monocytes % (Manual) Eosinophils % (Manual) Basophils % (Manual) Nucleated RBC % Seg Neutrophils # Seg Neutrophils # Man Lymphocytes # (Manual) Monocytes # (Manual) Eosinophils # (Manual) Basophils # (Manual) PT INR Fibrinogen dRVVT Confirm Interp Factor V Activity POC ABG pH POC ABG pCO2 POC ABG pO2 ABG pO2 ABG HCO3 ABG Base Excess ABG Hemoglobin Oxyhemoglobin Sodium Potassium Chloride Carbon Dioxide BUN 76 H Creatinine 1.6 H Glucose POC Glucose 130 H 136 H Lactic Acid Calcium Ionized Calcium Phosphorus Magnesium Direct Bilirubin AST ALT Alkaline Phosphatase 155 H Lactate Dehydrogenase Troponin T C-Reactive Protein Total Protein 5.5 L Albumin 1.5 L Prealbumin Triglycerides Cholesterol LDL Cholesterol Direct HDL Cholesterol 25-OH Vitamin D Total PTH Intact Urine pH Urine WBC (Auto) Urine Creatinine Urine Total Protein Fluid Total Protein Vancomycin Trough Rheumatoid Factor Complement C4 Miscellaneous Test Crossmatch 12/04/16 12/04/16 12/05/16 12:08 17:23 00:10 WBC RBC Hgb Hct MCV MCH MCHC RDW Plt Count Lymph % (Auto) [place] % (Auto) Lymph # [place] # Baso # Seg Neutrophils % Seg Neuts % (Manual) Lymphocytes % (Manual) Monocytes % (Manual) Eosinophils % (Manual) Basophils % (Manual) Nucleated RBC % Seg Neutrophils # Seg Neutrophils # Man Lymphocytes # (Manual) Monocytes # (Manual) Eosinophils # (Manual) Basophils # (Manual) PT INR Fibrinogen dRVVT Confirm Interp Factor V Activity POC ABG pH POC ABG pCO2 POC ABG pO2 ABG pO2 ABG HCO3 ABG Base Excess ABG Hemoglobin Oxyhemoglobin Sodium Potassium Chloride Carbon Dioxide BUN Creatinine Glucose POC Glucose 114 H 129 H 124 H Lactic Acid Calcium Ionized Calcium Phosphorus Magnesium Direct Bilirubin AST ALT Alkaline Phosphatase Lactate Dehydrogenase Troponin T C-Reactive Protein Total Protein Albumin Prealbumin Triglycerides Cholesterol LDL Cholesterol Direct HDL Cholesterol 25-OH Vitamin D Total PTH Intact Urine pH Urine WBC (Auto) Urine Creatinine Urine Total Protein Fluid Total Protein Vancomycin Trough Rheumatoid Factor Complement C4 Miscellaneous Test Crossmatch 12/05/16 12/05/16 12/05/16 05:00 05:00 05:18 WBC RBC Hgb Hct MCV MCH MCHC RDW Plt Count Lymph % (Auto) [place] % (Auto) Lymph # [place] # Baso # Seg Neutrophils % Seg Neuts % (Manual) Lymphocytes % (Manual) Monocytes % (Manual) Eosinophils % (Manual) Basophils % (Manual) Nucleated RBC % Seg Neutrophils # Seg Neutrophils # Man Lymphocytes # (Manual) Monocytes # (Manual) Eosinophils # (Manual) Basophils # (Manual) PT INR Fibrinogen dRVVT Confirm Interp Factor V Activity POC ABG pH POC ABG pCO2 POC ABG pO2 ABG pO2 ABG HCO3 ABG Base Excess ABG Hemoglobin Oxyhemoglobin Sodium Potassium Chloride Carbon Dioxide 21 L BUN 85 H Creatinine 1.9 H Glucose 131 H POC Glucose 154 H Lactic Acid Calcium Ionized Calcium Phosphorus Magnesium Direct Bilirubin AST ALT Alkaline Phosphatase Lactate Dehydrogenase Troponin T C-Reactive Protein 19.30 H Total Protein Albumin Prealbumin Triglycerides Cholesterol LDL Cholesterol Direct HDL Cholesterol 25-OH Vitamin D Total PTH Intact Urine pH Urine WBC (Auto) Urine Creatinine Urine Total Protein Fluid Total Protein Vancomycin Trough Rheumatoid Factor Complement C4 Miscellaneous Test Crossmatch 12/05/16 12/05/16 12/05/16 11:43 17:46 23:25 WBC RBC Hgb Hct MCV MCH MCHC RDW Plt Count Lymph % (Auto) [place] % (Auto) Lymph # [place] # Baso # Seg Neutrophils % Seg Neuts % (Manual) Lymphocytes % (Manual) Monocytes % (Manual) Eosinophils % (Manual) Basophils % (Manual) Nucleated RBC % Seg Neutrophils # Seg Neutrophils # Man Lymphocytes # (Manual) Monocytes # (Manual) Eosinophils # (Manual) Basophils # (Manual) PT INR Fibrinogen dRVVT Confirm Interp Factor V Activity POC ABG pH POC ABG pCO2 POC ABG pO2 ABG pO2 ABG HCO3 ABG Base Excess ABG Hemoglobin Oxyhemoglobin Sodium Potassium Chloride Carbon Dioxide BUN Creatinine Glucose POC Glucose 117 H 113 H 111 H Lactic Acid Calcium Ionized Calcium Phosphorus Magnesium Direct Bilirubin AST ALT Alkaline Phosphatase Lactate Dehydrogenase Troponin T C-Reactive Protein Total Protein Albumin Prealbumin Triglycerides Cholesterol LDL Cholesterol Direct HDL Cholesterol 25-OH Vitamin D Total PTH Intact Urine pH Urine WBC (Auto) Urine Creatinine Urine Total Protein Fluid Total Protein Vancomycin Trough Rheumatoid Factor Complement C4 Miscellaneous Test Crossmatch 12/05/16 12/06/16 12/06/16 Unknown 04:58 06:00 WBC RBC Hgb Hct MCV MCH MCHC RDW Plt Count Lymph % (Auto) [place] % (Auto) Lymph # [place] # Baso # Seg Neutrophils % Seg Neuts % (Manual) Lymphocytes % (Manual) Monocytes % (Manual) Eosinophils % (Manual) Basophils % (Manual) Nucleated RBC % Seg Neutrophils # Seg Neutrophils # Man Lymphocytes # (Manual) Monocytes # (Manual) Eosinophils # (Manual) Basophils # (Manual) PT INR Fibrinogen dRVVT Confirm Interp Factor V Activity POC ABG pH POC ABG pCO2 POC ABG pO2 ABG pO2 75.2 L ABG HCO3 ABG Base Excess -3.4 L ABG Hemoglobin 7.4 L Oxyhemoglobin 94.5 L Sodium Potassium Chloride Carbon Dioxide 20 L BUN 99 H Creatinine 2.1 H Glucose 126 H POC Glucose 145 H Lactic Acid Calcium Ionized Calcium Phosphorus 4.80 H Magnesium Direct Bilirubin AST ALT Alkaline Phosphatase Lactate Dehydrogenase Troponin T C-Reactive Protein Total Protein Albumin Prealbumin Triglycerides Cholesterol LDL Cholesterol Direct HDL Cholesterol 25-OH Vitamin D Total PTH Intact Urine pH Urine WBC (Auto) Urine Creatinine Urine Total Protein Fluid Total Protein Vancomycin Trough Rheumatoid Factor Complement C4 Miscellaneous Test Crossmatch 12/06/16 12/06/16 12/06/16 06:46 11:54 17:55 WBC RBC Hgb 8.3 L Hct 26.4 L MCV MCH MCHC RDW Plt Count Lymph % (Auto) [place] % (Auto) Lymph # [place] # Baso # Seg Neutrophils % Seg Neuts % (Manual) Lymphocytes % (Manual) Monocytes % (Manual) Eosinophils % (Manual) Basophils % (Manual) Nucleated RBC % Seg Neutrophils # Seg Neutrophils # Man Lymphocytes # (Manual) Monocytes # (Manual) Eosinophils # (Manual) Basophils # (Manual) PT INR Fibrinogen dRVVT Confirm Interp Factor V Activity POC ABG pH POC ABG pCO2 POC ABG pO2 ABG pO2 ABG HCO3 ABG Base Excess ABG Hemoglobin Oxyhemoglobin Sodium Potassium Chloride Carbon Dioxide BUN Creatinine Glucose POC Glucose 126 H 157 H Lactic Acid Calcium Ionized Calcium Phosphorus Magnesium Direct Bilirubin AST ALT Alkaline Phosphatase Lactate Dehydrogenase Troponin T C-Reactive Protein Total Protein Albumin Prealbumin Triglycerides Cholesterol LDL Cholesterol Direct HDL Cholesterol 25-OH Vitamin D Total PTH Intact Urine pH Urine WBC (Auto) Urine Creatinine Urine Total Protein Fluid Total Protein Vancomycin Trough Rheumatoid Factor Complement C4 Miscellaneous Test Crossmatch 12/06/16 12/07/16 12/07/16 23:59 05:34 06:30 WBC RBC Hgb Hct MCV MCH MCHC RDW Plt Count Lymph % (Auto) [place] % (Auto) Lymph # [place] # Baso # Seg Neutrophils % Seg Neuts % (Manual) Lymphocytes % (Manual) Monocytes % (Manual) Eosinophils % (Manual) Basophils % (Manual) Nucleated RBC % Seg Neutrophils # Seg Neutrophils # Man Lymphocytes # (Manual) Monocytes # (Manual) Eosinophils # (Manual) Basophils # (Manual) PT INR Fibrinogen dRVVT Confirm Interp Factor V Activity POC ABG pH POC ABG pCO2 POC ABG pO2 ABG pO2 ABG HCO3 ABG Base Excess ABG Hemoglobin Oxyhemoglobin Sodium Potassium Chloride Carbon Dioxide BUN 67 H Creatinine 1.4 H Glucose 126 H POC Glucose 129 H 129 H Lactic Acid Calcium Ionized Calcium Phosphorus Magnesium Direct Bilirubin AST ALT Alkaline Phosphatase Lactate Dehydrogenase Troponin T C-Reactive Protein Total Protein Albumin Prealbumin Triglycerides Cholesterol LDL Cholesterol Direct HDL Cholesterol 25-OH Vitamin D Total PTH Intact Urine pH Urine WBC (Auto) Urine Creatinine Urine Total Protein Fluid Total Protein Vancomycin Trough Rheumatoid Factor Complement C4 Miscellaneous Test Crossmatch 12/07/16 12/07/16 12/07/16 06:30 08:00 09:45 WBC 18.8 H RBC 2.52 L Hgb 6.9 L 6.8 L Hct 21.2 L 21.1 L MCV MCH 27 L MCHC RDW 18.0 H Plt Count Lymph % (Auto) [place] % (Auto) 9.9 H Lymph # [place] # 1.9 H Baso # Seg Neutrophils % 71.8 H Seg Neuts % (Manual) Lymphocytes % (Manual) Monocytes % (Manual) Eosinophils % (Manual) Basophils % (Manual) Nucleated RBC % Seg Neutrophils # 13.5 H Seg Neutrophils # Man Lymphocytes # (Manual) Monocytes # (Manual) Eosinophils # (Manual) Basophils # (Manual) PT INR Fibrinogen dRVVT Confirm Interp Factor V Activity POC ABG pH POC ABG pCO2 POC ABG pO2 ABG pO2 ABG HCO3 ABG Base Excess ABG Hemoglobin Oxyhemoglobin Sodium Potassium Chloride Carbon Dioxide BUN Creatinine Glucose POC Glucose Lactic Acid Calcium Ionized Calcium Phosphorus Magnesium Direct Bilirubin AST ALT Alkaline Phosphatase Lactate Dehydrogenase Troponin T C-Reactive Protein Total Protein Albumin Prealbumin Triglycerides Cholesterol LDL Cholesterol Direct HDL Cholesterol 25-OH Vitamin D Total PTH Intact Urine pH Urine WBC (Auto) Urine Creatinine Urine Total Protein Fluid Total Protein Vancomycin Trough Rheumatoid Factor Complement C4 Miscellaneous Test Crossmatch See Detail 12/07/16 12/07/16 12/07/16 11:44 18:19 23:59 WBC RBC Hgb Hct MCV MCH MCHC RDW Plt Count Lymph % (Auto) [place] % (Auto) Lymph # [place] # Baso # Seg Neutrophils % Seg Neuts % (Manual) Lymphocytes % (Manual) Monocytes % (Manual) Eosinophils % (Manual) Basophils % (Manual) Nucleated RBC % Seg Neutrophils # Seg Neutrophils # Man Lymphocytes # (Manual) Monocytes # (Manual) Eosinophils # (Manual) Basophils # (Manual) PT INR Fibrinogen dRVVT Confirm Interp Factor V Activity POC ABG pH POC ABG pCO2 POC ABG pO2 ABG pO2 ABG HCO3 ABG Base Excess ABG Hemoglobin Oxyhemoglobin Sodium Potassium Chloride Carbon Dioxide BUN Creatinine Glucose POC Glucose 137 H 138 H 133 H Lactic Acid Calcium Ionized Calcium Phosphorus Magnesium Direct Bilirubin AST ALT Alkaline Phosphatase Lactate Dehydrogenase Troponin T C-Reactive Protein Total Protein Albumin Prealbumin Triglycerides Cholesterol LDL Cholesterol Direct HDL Cholesterol 25-OH Vitamin D Total PTH Intact Urine pH Urine WBC (Auto) Urine Creatinine Urine Total Protein Fluid Total Protein Vancomycin Trough Rheumatoid Factor Complement C4 Miscellaneous Test Crossmatch 12/08/16 12/08/16 12/08/16 05:25 05:30 05:30 WBC 23.8 H RBC 2.88 L Hgb 8.1 L Hct 24.3 L MCV MCH MCHC RDW 16.7 H Plt Count Lymph % (Auto) [place] % (Auto) Lymph # [place] # Baso # Seg Neutrophils % Seg Neuts % (Manual) 76.0 H Lymphocytes % (Manual) 9.0 L Monocytes % (Manual) 9.0 H Eosinophils % (Manual) Basophils % (Manual) Nucleated RBC % Seg Neutrophils # Seg Neutrophils # Man 18.1 H Lymphocytes # (Manual) Monocytes # (Manual) 2.1 H Eosinophils # (Manual) Basophils # (Manual) PT INR Fibrinogen dRVVT Confirm Interp Factor V Activity POC ABG pH POC ABG pCO2 POC ABG pO2 ABG pO2 ABG HCO3 ABG Base Excess ABG Hemoglobin Oxyhemoglobin Sodium Potassium Chloride Carbon Dioxide 21 L BUN 76 H Creatinine 1.6 H Glucose 133 H POC Glucose 177 H Lactic Acid Calcium Ionized Calcium Phosphorus Magnesium Direct Bilirubin AST ALT Alkaline Phosphatase Lactate Dehydrogenase Troponin T C-Reactive Protein Total Protein Albumin Prealbumin Triglycerides Cholesterol LDL Cholesterol Direct HDL Cholesterol 25-OH Vitamin D Total PTH Intact Urine pH Urine WBC (Auto) Urine Creatinine Urine Total Protein Fluid Total Protein Vancomycin Trough Rheumatoid Factor Complement C4 Miscellaneous Test Crossmatch 12/08/16 12/08/16 12/09/16 11:45 18:00 00:00 WBC RBC Hgb Hct MCV MCH MCHC RDW Plt Count Lymph % (Auto) [place] % (Auto) Lymph # [place] # Baso # Seg Neutrophils % Seg Neuts % (Manual) Lymphocytes % (Manual) Monocytes % (Manual) Eosinophils % (Manual) Basophils % (Manual) Nucleated RBC % Seg Neutrophils # Seg Neutrophils # Man Lymphocytes # (Manual) Monocytes # (Manual) Eosinophils # (Manual) Basophils # (Manual) PT INR Fibrinogen dRVVT Confirm Interp Factor V Activity POC ABG pH POC ABG pCO2 POC ABG pO2 ABG pO2 ABG HCO3 ABG Base Excess ABG Hemoglobin Oxyhemoglobin Sodium Potassium Chloride Carbon Dioxide BUN Creatinine Glucose POC Glucose 163 H 123 H 137 H Lactic Acid Calcium Ionized Calcium Phosphorus Magnesium Direct Bilirubin AST ALT Alkaline Phosphatase Lactate Dehydrogenase Troponin T C-Reactive Protein Total Protein Albumin Prealbumin Triglycerides Cholesterol LDL Cholesterol Direct HDL Cholesterol 25-OH Vitamin D Total PTH Intact Urine pH Urine WBC (Auto) Urine Creatinine Urine Total Protein Fluid Total Protein Vancomycin Trough Rheumatoid Factor Complement C4 Miscellaneous Test Crossmatch 12/09/16 12/09/16 12/09/16 05:34 06:00 06:00 WBC 15.5 H RBC 2.87 L Hgb 8.0 L Hct 24.2 L MCV MCH MCHC RDW 17.2 H Plt Count Lymph % (Auto) [place] % (Auto) 11.6 H Lymph # [place] # 1.8 H Baso # Seg Neutrophils % 70.8 H Seg Neuts % (Manual) Lymphocytes % (Manual) Monocytes % (Manual) Eosinophils % (Manual) Basophils % (Manual) Nucleated RBC % Seg Neutrophils # 11.0 H Seg Neutrophils # Man Lymphocytes # (Manual) Monocytes # (Manual) Eosinophils # (Manual) Basophils # (Manual) PT INR Fibrinogen dRVVT Confirm Interp Factor V Activity POC ABG pH POC ABG pCO2 POC ABG pO2 ABG pO2 ABG HCO3 ABG Base Excess ABG Hemoglobin Oxyhemoglobin Sodium Potassium Chloride Carbon Dioxide BUN 51 H Creatinine Glucose 117 H POC Glucose 136 H Lactic Acid Calcium Ionized Calcium Phosphorus Magnesium Direct Bilirubin AST ALT Alkaline Phosphatase Lactate Dehydrogenase Troponin T C-Reactive Protein Total Protein Albumin Prealbumin Triglycerides Cholesterol LDL Cholesterol Direct HDL Cholesterol 25-OH Vitamin D Total PTH Intact Urine pH Urine WBC (Auto) Urine Creatinine Urine Total Protein Fluid Total Protein Vancomycin Trough Rheumatoid Factor Complement C4 Miscellaneous Test Crossmatch 12/09/16 12/09/16 12/09/16 12:29 17:52 23:10 WBC RBC Hgb Hct MCV MCH MCHC RDW Plt Count Lymph % (Auto) [place] % (Auto) Lymph # [place] # Baso # Seg Neutrophils % Seg Neuts % (Manual) Lymphocytes % (Manual) Monocytes % (Manual) Eosinophils % (Manual) Basophils % (Manual) Nucleated RBC % Seg Neutrophils # Seg Neutrophils # Man Lymphocytes # (Manual) Monocytes # (Manual) Eosinophils # (Manual) Basophils # (Manual) PT INR Fibrinogen dRVVT Confirm Interp Factor V Activity POC ABG pH POC ABG pCO2 POC ABG pO2 ABG pO2 ABG HCO3 ABG Base Excess ABG Hemoglobin Oxyhemoglobin Sodium Potassium Chloride Carbon Dioxide BUN Creatinine Glucose POC Glucose 139 H 140 H 129 H Lactic Acid Calcium Ionized Calcium Phosphorus Magnesium Direct Bilirubin AST ALT Alkaline Phosphatase Lactate Dehydrogenase Troponin T C-Reactive Protein Total Protein Albumin Prealbumin Triglycerides Cholesterol LDL Cholesterol Direct HDL Cholesterol 25-OH Vitamin D Total PTH Intact Urine pH Urine WBC (Auto) Urine Creatinine Urine Total Protein Fluid Total Protein Vancomycin Trough Rheumatoid Factor Complement C4 Miscellaneous Test Crossmatch 12/10/16 12/10/16 12/10/16 05:00 05:00 06:54 WBC 15.7 H RBC 2.87 L Hgb 8.2 L Hct 24.4 L MCV MCH MCHC RDW 17.2 H Plt Count Lymph % (Auto) [place] % (Auto) 8.3 H Lymph # [place] # 1.3 H Baso # Seg Neutrophils % 72.8 H Seg Neuts % (Manual) Lymphocytes % (Manual) Monocytes % (Manual) Eosinophils % (Manual) Basophils % (Manual) Nucleated RBC % Seg Neutrophils # 11.4 H Seg Neutrophils # Man Lymphocytes # (Manual) Monocytes # (Manual) Eosinophils # (Manual) Basophils # (Manual) PT INR Fibrinogen dRVVT Confirm Interp Factor V Activity POC ABG pH POC ABG pCO2 POC ABG pO2 ABG pO2 ABG HCO3 ABG Base Excess ABG Hemoglobin Oxyhemoglobin Sodium Potassium Chloride Carbon Dioxide BUN 64 H Creatinine 1.4 H Glucose 134 H POC Glucose 154 H Lactic Acid Calcium Ionized Calcium Phosphorus Magnesium Direct Bilirubin AST ALT Alkaline Phosphatase Lactate Dehydrogenase Troponin T C-Reactive Protein Total Protein Albumin Prealbumin Triglycerides Cholesterol LDL Cholesterol Direct HDL Cholesterol 25-OH Vitamin D Total PTH Intact Urine pH Urine WBC (Auto) Urine Creatinine Urine Total Protein Fluid Total Protein Vancomycin Trough Rheumatoid Factor Complement C4 Miscellaneous Test Crossmatch 12/10/16 12/10/16 12/10/16 11:58 17:29 23:52 WBC RBC Hgb Hct MCV MCH MCHC RDW Plt Count Lymph % (Auto) [place] % (Auto) Lymph # [place] # Baso # Seg Neutrophils % Seg Neuts % (Manual) Lymphocytes % (Manual) Monocytes % (Manual) Eosinophils % (Manual) Basophils % (Manual) Nucleated RBC % Seg Neutrophils # Seg Neutrophils # Man Lymphocytes # (Manual) Monocytes # (Manual) Eosinophils # (Manual) Basophils # (Manual) PT INR Fibrinogen dRVVT Confirm Interp Factor V Activity POC ABG pH POC ABG pCO2 POC ABG pO2 ABG pO2 ABG HCO3 ABG Base Excess ABG Hemoglobin Oxyhemoglobin Sodium Potassium Chloride Carbon Dioxide BUN Creatinine Glucose POC Glucose 144 H 163 H 125 H Lactic Acid Calcium Ionized Calcium Phosphorus Magnesium Direct Bilirubin AST ALT Alkaline Phosphatase Lactate Dehydrogenase Troponin T C-Reactive Protein Total Protein Albumin Prealbumin Triglycerides Cholesterol LDL Cholesterol Direct HDL Cholesterol 25-OH Vitamin D Total PTH Intact Urine pH Urine WBC (Auto) Urine Creatinine Urine Total Protein Fluid Total Protein Vancomycin Trough Rheumatoid Factor Complement C4 Miscellaneous Test Crossmatch 12/11/16 12/11/16 12/11/16 05:38 06:30 06:30 WBC 14.4 H RBC 2.76 L Hgb 7.7 L Hct 23.4 L MCV MCH MCHC RDW 17.2 H Plt Count Lymph % (Auto) [place] % (Auto) 8.8 H Lymph # [place] # 1.3 H Baso # Seg Neutrophils % 72.5 H Seg Neuts % (Manual) Lymphocytes % (Manual) Monocytes % (Manual) Eosinophils % (Manual) Basophils % (Manual) Nucleated RBC % Seg Neutrophils # 10.5 H Seg Neutrophils # Man Lymphocytes # (Manual) Monocytes # (Manual) Eosinophils # (Manual) Basophils # (Manual) PT INR Fibrinogen dRVVT Confirm Interp Factor V Activity POC ABG pH POC ABG pCO2 POC ABG pO2 ABG pO2 ABG HCO3 ABG Base Excess ABG Hemoglobin Oxyhemoglobin Sodium Potassium Chloride Carbon Dioxide BUN 43 H Creatinine Glucose 124 H POC Glucose 141 H Lactic Acid Calcium 8.3 L Ionized Calcium Phosphorus Magnesium 1.60 L Direct Bilirubin AST ALT Alkaline Phosphatase Lactate Dehydrogenase Troponin T C-Reactive Protein Total Protein Albumin Prealbumin Triglycerides Cholesterol LDL Cholesterol Direct HDL Cholesterol 25-OH Vitamin D Total PTH Intact Urine pH Urine WBC (Auto) Urine Creatinine Urine Total Protein Fluid Total Protein Vancomycin Trough Rheumatoid Factor Complement C4 Miscellaneous Test Crossmatch 12/11/16 12/11/16 12/11/16 11:15 17:59 23:48 WBC RBC Hgb Hct MCV MCH MCHC RDW Plt Count Lymph % (Auto) [place] % (Auto) Lymph # [place] # Baso # Seg Neutrophils % Seg Neuts % (Manual) Lymphocytes % (Manual) Monocytes % (Manual) Eosinophils % (Manual) Basophils % (Manual) Nucleated RBC % Seg Neutrophils # Seg Neutrophils # Man Lymphocytes # (Manual) Monocytes # (Manual) Eosinophils # (Manual) Basophils # (Manual) PT INR Fibrinogen dRVVT Confirm Interp Factor V Activity POC ABG pH POC ABG pCO2 POC ABG pO2 ABG pO2 ABG HCO3 ABG Base Excess ABG Hemoglobin Oxyhemoglobin Sodium Potassium Chloride Carbon Dioxide BUN Creatinine Glucose POC Glucose 188 H 106 H 119 H Lactic Acid Calcium Ionized Calcium Phosphorus Magnesium Direct Bilirubin AST ALT Alkaline Phosphatase Lactate Dehydrogenase Troponin T C-Reactive Protein Total Protein Albumin Prealbumin Triglycerides Cholesterol LDL Cholesterol Direct HDL Cholesterol 25-OH Vitamin D Total PTH Intact Urine pH Urine WBC (Auto) Urine Creatinine Urine Total Protein Fluid Total Protein Vancomycin Trough Rheumatoid Factor Complement C4 Miscellaneous Test Crossmatch 12/12/16 12/12/16 12/12/16 05:00 06:01 12:20 WBC 16.7 H RBC 2.87 L Hgb 8.0 L Hct 24.2 L MCV MCH MCHC RDW 17.6 H Plt Count Lymph % (Auto) [place] % (Auto) Lymph # [place] # 1.2 H Baso # Seg Neutrophils % 75.3 H Seg Neuts % (Manual) Lymphocytes % (Manual) Monocytes % (Manual) Eosinophils % (Manual) Basophils % (Manual) Nucleated RBC % Seg Neutrophils # 12.6 H Seg Neutrophils # Man Lymphocytes # (Manual) Monocytes # (Manual) Eosinophils # (Manual) Basophils # (Manual) PT INR Fibrinogen dRVVT Confirm Interp Factor V Activity POC ABG pH POC ABG pCO2 POC ABG pO2 ABG pO2 ABG HCO3 ABG Base Excess ABG Hemoglobin Oxyhemoglobin Sodium Potassium Chloride Carbon Dioxide BUN Creatinine Glucose POC Glucose 134 H 149 H Lactic Acid Calcium Ionized Calcium Phosphorus Magnesium Direct Bilirubin AST ALT Alkaline Phosphatase Lactate Dehydrogenase Troponin T C-Reactive Protein Total Protein Albumin Prealbumin Triglycerides Cholesterol LDL Cholesterol Direct HDL Cholesterol 25-OH Vitamin D Total PTH Intact Urine pH Urine WBC (Auto) Urine Creatinine Urine Total Protein Fluid Total Protein Vancomycin Trough Rheumatoid Factor Complement C4 Miscellaneous Test Crossmatch 12/12/16 12/12/16 12/12/16 17:38 23:01 Unknown WBC RBC Hgb Hct MCV MCH MCHC RDW Plt Count Lymph % (Auto) [place] % (Auto) Lymph # [place] # Baso # Seg Neutrophils % Seg Neuts % (Manual) Lymphocytes % (Manual) Monocytes % (Manual) Eosinophils % (Manual) Basophils % (Manual) Nucleated RBC % Seg Neutrophils # Seg Neutrophils # Man Lymphocytes # (Manual) Monocytes # (Manual) Eosinophils # (Manual) Basophils # (Manual) PT INR Fibrinogen dRVVT Confirm Interp Factor V Activity POC ABG pH POC ABG pCO2 POC ABG pO2 ABG pO2 ABG HCO3 ABG Base Excess ABG Hemoglobin Oxyhemoglobin Sodium Potassium Chloride Carbon Dioxide BUN 60 H Creatinine 1.3 H Glucose 126 H POC Glucose 127 H 144 H Lactic Acid Calcium Ionized Calcium Phosphorus Magnesium Direct Bilirubin AST ALT Alkaline Phosphatase Lactate Dehydrogenase Troponin T C-Reactive Protein Total Protein Albumin Prealbumin Triglycerides Cholesterol LDL Cholesterol Direct HDL Cholesterol 25-OH Vitamin D Total PTH Intact Urine pH Urine WBC (Auto) Urine Creatinine Urine Total Protein Fluid Total Protein Vancomycin Trough Rheumatoid Factor Complement C4 Miscellaneous Test Crossmatch 12/13/16 12/13/16 12/13/16 04:00 04:00 05:19 WBC 18.7 H RBC 2.89 L Hgb 8.3 L Hct 24.6 L MCV MCH MCHC RDW 17.5 H Plt Count Lymph % (Auto) [place] % (Auto) Lymph # [place] # 1.3 H Baso # Seg Neutrophils % 71.5 H Seg Neuts % (Manual) Lymphocytes % (Manual) Monocytes % (Manual) Eosinophils % (Manual) Basophils % (Manual) Nucleated RBC % Seg Neutrophils # 13.4 H Seg Neutrophils # Man Lymphocytes # (Manual) Monocytes # (Manual) Eosinophils # (Manual) Basophils # (Manual) PT INR Fibrinogen dRVVT Confirm Interp Factor V Activity POC ABG pH POC ABG pCO2 POC ABG pO2 ABG pO2 ABG HCO3 ABG Base Excess ABG Hemoglobin Oxyhemoglobin Sodium Potassium Chloride Carbon Dioxide BUN 73 H Creatinine 1.5 H Glucose 141 H POC Glucose 171 H Lactic Acid Calcium Ionized Calcium Phosphorus Magnesium Direct Bilirubin AST ALT Alkaline Phosphatase Lactate Dehydrogenase Troponin T C-Reactive Protein Total Protein Albumin Prealbumin Triglycerides Cholesterol LDL Cholesterol Direct HDL Cholesterol 25-OH Vitamin D Total PTH Intact Urine pH Urine WBC (Auto) Urine Creatinine Urine Total Protein Fluid Total Protein Vancomycin Trough Rheumatoid Factor Complement C4 Miscellaneous Test Crossmatch 12/13/16 12/13/16 12/14/16 12:28 16:48 00:01 WBC RBC Hgb Hct MCV MCH MCHC RDW Plt Count Lymph % (Auto) [place] % (Auto) Lymph # [place] # Baso # Seg Neutrophils % Seg Neuts % (Manual) Lymphocytes % (Manual) Monocytes % (Manual) Eosinophils % (Manual) Basophils % (Manual) Nucleated RBC % Seg Neutrophils # Seg Neutrophils # Man Lymphocytes # (Manual) Monocytes # (Manual) Eosinophils # (Manual) Basophils # (Manual) PT INR Fibrinogen dRVVT Confirm Interp Factor V Activity POC ABG pH POC ABG pCO2 POC ABG pO2 ABG pO2 ABG HCO3 ABG Base Excess ABG Hemoglobin Oxyhemoglobin Sodium Potassium Chloride Carbon Dioxide BUN Creatinine Glucose POC Glucose 206 H 173 H 139 H Lactic Acid Calcium Ionized Calcium Phosphorus Magnesium Direct Bilirubin AST ALT Alkaline Phosphatase Lactate Dehydrogenase Troponin T C-Reactive Protein Total Protein Albumin Prealbumin Triglycerides Cholesterol LDL Cholesterol Direct HDL Cholesterol 25-OH Vitamin D Total PTH Intact Urine pH Urine WBC (Auto) Urine Creatinine Urine Total Protein Fluid Total Protein Vancomycin Trough Rheumatoid Factor Complement C4 Miscellaneous Test Crossmatch 12/14/16 12/14/16 12/14/16 05:16 06:10 11:17 WBC RBC Hgb Hct MCV MCH MCHC RDW Plt Count Lymph % (Auto) [place] % (Auto) Lymph # [place] # Baso # Seg Neutrophils % Seg Neuts % (Manual) Lymphocytes % (Manual) Monocytes % (Manual) Eosinophils % (Manual) Basophils % (Manual) Nucleated RBC % Seg Neutrophils # Seg Neutrophils # Man Lymphocytes # (Manual) Monocytes # (Manual) Eosinophils # (Manual) Basophils # (Manual) PT INR Fibrinogen dRVVT Confirm Interp Factor V Activity POC ABG pH POC ABG pCO2 POC ABG pO2 ABG pO2 ABG HCO3 ABG Base Excess ABG Hemoglobin Oxyhemoglobin Sodium Potassium Chloride Carbon Dioxide BUN 57 H Creatinine 1.4 H Glucose 135 H POC Glucose 158 H 137 H Lactic Acid Calcium Ionized Calcium Phosphorus Magnesium Direct Bilirubin AST ALT Alkaline Phosphatase Lactate Dehydrogenase Troponin T C-Reactive Protein Total Protein Albumin Prealbumin Triglycerides Cholesterol LDL Cholesterol Direct HDL Cholesterol 25-OH Vitamin D Total PTH Intact Urine pH Urine WBC (Auto) Urine Creatinine Urine Total Protein Fluid Total Protein Vancomycin Trough Rheumatoid Factor Complement C4 Miscellaneous Test Crossmatch 12/14/16 12/14/16 12/15/16 17:52 23:27 04:00 WBC RBC Hgb Hct MCV MCH MCHC RDW Plt Count Lymph % (Auto) [place] % (Auto) Lymph # [place] # Baso # Seg Neutrophils % Seg Neuts % (Manual) Lymphocytes % (Manual) Monocytes % (Manual) Eosinophils % (Manual) Basophils % (Manual) Nucleated RBC % Seg Neutrophils # Seg Neutrophils # Man Lymphocytes # (Manual) Monocytes # (Manual) Eosinophils # (Manual) Basophils # (Manual) PT INR Fibrinogen dRVVT Confirm Interp Factor V Activity POC ABG pH POC ABG pCO2 POC ABG pO2 ABG pO2 ABG HCO3 ABG Base Excess ABG Hemoglobin Oxyhemoglobin Sodium Potassium Chloride 97.9 L Carbon Dioxide BUN 75 H Creatinine 1.6 H Glucose 122 H POC Glucose 149 H 163 H Lactic Acid Calcium Ionized Calcium Phosphorus 5.20 H Magnesium Direct Bilirubin AST ALT Alkaline Phosphatase Lactate Dehydrogenase Troponin T C-Reactive Protein Total Protein Albumin Prealbumin Triglycerides Cholesterol LDL Cholesterol Direct HDL Cholesterol 25-OH Vitamin D Total PTH Intact Urine pH Urine WBC (Auto) Urine Creatinine Urine Total Protein Fluid Total Protein Vancomycin Trough Rheumatoid Factor Complement C4 Miscellaneous Test Crossmatch 12/15/16 12/15/16 12/15/16 05:50 11:24 17:01 WBC RBC Hgb Hct MCV MCH MCHC RDW Plt Count Lymph % (Auto) [place] % (Auto) Lymph # [place] # Baso # Seg Neutrophils % Seg Neuts % (Manual) Lymphocytes % (Manual) Monocytes % (Manual) Eosinophils % (Manual) Basophils % (Manual) Nucleated RBC % Seg Neutrophils # Seg Neutrophils # Man Lymphocytes # (Manual) Monocytes # (Manual) Eosinophils # (Manual) Basophils # (Manual) PT INR Fibrinogen dRVVT Confirm Interp Factor V Activity POC ABG pH POC ABG pCO2 POC ABG pO2 ABG pO2 ABG HCO3 ABG Base Excess ABG Hemoglobin Oxyhemoglobin Sodium Potassium Chloride Carbon Dioxide BUN Creatinine Glucose POC Glucose 150 H 146 H 167 H Lactic Acid Calcium Ionized Calcium Phosphorus Magnesium Direct Bilirubin AST ALT Alkaline Phosphatase Lactate Dehydrogenase Troponin T C-Reactive Protein Total Protein Albumin Prealbumin Triglycerides Cholesterol LDL Cholesterol Direct HDL Cholesterol 25-OH Vitamin D Total PTH Intact Urine pH Urine WBC (Auto) Urine Creatinine Urine Total Protein Fluid Total Protein Vancomycin Trough Rheumatoid Factor Complement C4 Miscellaneous Test Crossmatch 12/15/16 12/16/16 12/16/16 23:34 05:25 11:24 WBC RBC Hgb Hct MCV MCH MCHC RDW Plt Count Lymph % (Auto) [place] % (Auto) Lymph # [place] # Baso # Seg Neutrophils % Seg Neuts % (Manual) Lymphocytes % (Manual) Monocytes % (Manual) Eosinophils % (Manual) Basophils % (Manual) Nucleated RBC % Seg Neutrophils # Seg Neutrophils # Man Lymphocytes # (Manual) Monocytes # (Manual) Eosinophils # (Manual) Basophils # (Manual) PT INR Fibrinogen dRVVT Confirm Interp Factor V Activity POC ABG pH POC ABG pCO2 POC ABG pO2 ABG pO2 ABG HCO3 ABG Base Excess ABG Hemoglobin Oxyhemoglobin Sodium Potassium Chloride Carbon Dioxide BUN Creatinine Glucose POC Glucose 127 H 139 H 165 H Lactic Acid Calcium Ionized Calcium Phosphorus Magnesium Direct Bilirubin AST ALT Alkaline Phosphatase Lactate Dehydrogenase Troponin T C-Reactive Protein Total Protein Albumin Prealbumin Triglycerides Cholesterol LDL Cholesterol Direct HDL Cholesterol 25-OH Vitamin D Total PTH Intact Urine pH Urine WBC (Auto) Urine Creatinine Urine Total Protein Fluid Total Protein Vancomycin Trough Rheumatoid Factor Complement C4 Miscellaneous Test Crossmatch 12/16/16 12/16/16 12/16/16 15:30 16:25 17:31 WBC 17.8 H RBC 2.38 L Hgb 6.4 L Hct 20.3 L MCV MCH 27 L MCHC RDW 17.4 H Plt Count Lymph % (Auto) [place] % (Auto) Lymph # [place] # Baso # Seg Neutrophils % Seg Neuts % (Manual) Lymphocytes % (Manual) Monocytes % (Manual) 10.0 H Eosinophils % (Manual) Basophils % (Manual) Nucleated RBC % Seg Neutrophils # Seg Neutrophils # Man 8.5 H Lymphocytes # (Manual) Monocytes # (Manual) 1.8 H Eosinophils # (Manual) Basophils # (Manual) PT INR Fibrinogen dRVVT Confirm Interp Factor V Activity POC ABG pH POC ABG pCO2 POC ABG pO2 ABG pO2 ABG HCO3 ABG Base Excess ABG Hemoglobin Oxyhemoglobin Sodium Potassium Chloride Carbon Dioxide BUN Creatinine Glucose POC Glucose 176 H Lactic Acid Calcium Ionized Calcium Phosphorus Magnesium Direct Bilirubin AST ALT Alkaline Phosphatase Lactate Dehydrogenase Troponin T C-Reactive Protein Total Protein Albumin Prealbumin Triglycerides Cholesterol LDL Cholesterol Direct HDL Cholesterol 25-OH Vitamin D Total PTH Intact Urine pH Urine WBC (Auto) Urine Creatinine Urine Total Protein Fluid Total Protein Vancomycin Trough Rheumatoid Factor Complement C4 Miscellaneous Test Crossmatch See Detail 12/17/16 12/17/16 12/17/16 00:14 04:00 05:00 WBC 20.0 H RBC 2.99 L Hgb 8.5 L Hct 25.7 L MCV MCH MCHC RDW 17.2 H Plt Count Lymph % (Auto) [place] % (Auto) Lymph # [place] # Baso # Seg Neutrophils % Seg Neuts % (Manual) Lymphocytes % (Manual) Monocytes % (Manual) Eosinophils % (Manual) Basophils % (Manual) Nucleated RBC % Seg Neutrophils # Seg Neutrophils # Man Lymphocytes # (Manual) Monocytes # (Manual) Eosinophils # (Manual) Basophils # (Manual) PT INR Fibrinogen dRVVT Confirm Interp Factor V Activity POC ABG pH POC ABG pCO2 POC ABG pO2 ABG pO2 ABG HCO3 ABG Base Excess ABG Hemoglobin Oxyhemoglobin Sodium Potassium Chloride 97.7 L Carbon Dioxide BUN 73 H Creatinine 1.7 H Glucose 136 H POC Glucose 148 H Lactic Acid Calcium Ionized Calcium Phosphorus 2.20 L Magnesium 2.70 H Direct Bilirubin AST ALT Alkaline Phosphatase Lactate Dehydrogenase Troponin T C-Reactive Protein Total Protein Albumin Prealbumin Triglycerides Cholesterol LDL Cholesterol Direct HDL Cholesterol 25-OH Vitamin D Total PTH Intact Urine pH Urine WBC (Auto) Urine Creatinine Urine Total Protein Fluid Total Protein Vancomycin Trough Rheumatoid Factor Complement C4 Miscellaneous Test Crossmatch 12/17/16 12/17/16 12/17/16 05:39 12:50 16:32 WBC RBC Hgb Hct MCV MCH MCHC RDW Plt Count Lymph % (Auto) [place] % (Auto) Lymph # [place] # Baso # Seg Neutrophils % Seg Neuts % (Manual) Lymphocytes % (Manual) Monocytes % (Manual) Eosinophils % (Manual) Basophils % (Manual) Nucleated RBC % Seg Neutrophils # Seg Neutrophils # Man Lymphocytes # (Manual) Monocytes # (Manual) Eosinophils # (Manual) Basophils # (Manual) PT INR Fibrinogen dRVVT Confirm Interp Factor V Activity POC ABG pH POC ABG pCO2 POC ABG pO2 ABG pO2 ABG HCO3 ABG Base Excess ABG Hemoglobin Oxyhemoglobin Sodium Potassium Chloride Carbon Dioxide BUN Creatinine Glucose POC Glucose 162 H 146 H 169 H Lactic Acid Calcium Ionized Calcium Phosphorus Magnesium Direct Bilirubin AST ALT Alkaline Phosphatase Lactate Dehydrogenase Troponin T C-Reactive Protein Total Protein Albumin Prealbumin Triglycerides Cholesterol LDL Cholesterol Direct HDL Cholesterol 25-OH Vitamin D Total PTH Intact Urine pH Urine WBC (Auto) Urine Creatinine Urine Total Protein Fluid Total Protein Vancomycin Trough Rheumatoid Factor Complement C4 Miscellaneous Test Crossmatch 12/17/16 12/18/16 12/18/16 23:57 05:00 05:32 WBC RBC Hgb Hct MCV MCH MCHC RDW Plt Count Lymph % (Auto) [place] % (Auto) Lymph # [place] # Baso # Seg Neutrophils % Seg Neuts % (Manual) Lymphocytes % (Manual) Monocytes % (Manual) Eosinophils % (Manual) Basophils % (Manual) Nucleated RBC % Seg Neutrophils # Seg Neutrophils # Man Lymphocytes # (Manual) Monocytes # (Manual) Eosinophils # (Manual) Basophils # (Manual) PT INR Fibrinogen dRVVT Confirm Interp Factor V Activity POC ABG pH POC ABG pCO2 POC ABG pO2 ABG pO2 ABG HCO3 ABG Base Excess ABG Hemoglobin Oxyhemoglobin Sodium Potassium Chloride 97.0 L Carbon Dioxide BUN 63 H Creatinine 1.4 H Glucose 174 H POC Glucose 145 H 201 H Lactic Acid Calcium Ionized Calcium Phosphorus 1.70 L D Magnesium Direct Bilirubin AST ALT Alkaline Phosphatase 257 H Lactate Dehydrogenase Troponin T C-Reactive Protein Total Protein 5.9 L Albumin 1.8 L Prealbumin Triglycerides Cholesterol LDL Cholesterol Direct HDL Cholesterol 25-OH Vitamin D Total PTH Intact Urine pH Urine WBC (Auto) Urine Creatinine Urine Total Protein Fluid Total Protein Vancomycin Trough Rheumatoid Factor Complement C4 Miscellaneous Test Crossmatch 12/18/16 12/18/16 12/18/16 11:43 16:52 23:52 WBC RBC Hgb Hct MCV MCH MCHC RDW Plt Count Lymph % (Auto) [place] % (Auto) Lymph # [place] # Baso # Seg Neutrophils % Seg Neuts % (Manual) Lymphocytes % (Manual) Monocytes % (Manual) Eosinophils % (Manual) Basophils % (Manual) Nucleated RBC % Seg Neutrophils # Seg Neutrophils # Man Lymphocytes # (Manual) Monocytes # (Manual) Eosinophils # (Manual) Basophils # (Manual) PT INR Fibrinogen dRVVT Confirm Interp Factor V Activity POC ABG pH POC ABG pCO2 POC ABG pO2 ABG pO2 ABG HCO3 ABG Base Excess ABG Hemoglobin Oxyhemoglobin Sodium Potassium Chloride Carbon Dioxide BUN Creatinine Glucose POC Glucose 177 H 110 H 162 H Lactic Acid Calcium Ionized Calcium Phosphorus Magnesium Direct Bilirubin AST ALT Alkaline Phosphatase Lactate Dehydrogenase Troponin T C-Reactive Protein Total Protein Albumin Prealbumin Triglycerides Cholesterol LDL Cholesterol Direct HDL Cholesterol 25-OH Vitamin D Total PTH Intact Urine pH Urine WBC (Auto) Urine Creatinine Urine Total Protein Fluid Total Protein Vancomycin Trough Rheumatoid Factor Complement C4 Miscellaneous Test Crossmatch 12/19/16 12/19/16 12/19/16 05:02 05:24 09:30 WBC 20.1 H RBC 2.73 L Hgb 7.6 L Hct 23.6 L MCV MCH MCHC RDW 17.6 H Plt Count Lymph % (Auto) [place] % (Auto) Lymph # [place] # Baso # Seg Neutrophils % Seg Neuts % (Manual) Lymphocytes % (Manual) 13.0 L Monocytes % (Manual) Eosinophils % (Manual) Basophils % (Manual) Nucleated RBC % 1.0 H Seg Neutrophils # Seg Neutrophils # Man 12.9 H Lymphocytes # (Manual) Monocytes # (Manual) 1.4 H Eosinophils # (Manual) Basophils # (Manual) 0.2 H PT INR Fibrinogen dRVVT Confirm Interp Factor V Activity POC ABG pH POC ABG pCO2 POC ABG pO2 ABG pO2 ABG HCO3 ABG Base Excess ABG Hemoglobin Oxyhemoglobin Sodium Potassium Chloride 97.8 L Carbon Dioxide BUN 84 H Creatinine 1.6 H Glucose 133 H POC Glucose 134 H Lactic Acid Calcium Ionized Calcium Phosphorus Magnesium Direct Bilirubin AST ALT Alkaline Phosphatase Lactate Dehydrogenase Troponin T C-Reactive Protein Total Protein Albumin Prealbumin Triglycerides Cholesterol LDL Cholesterol Direct HDL Cholesterol 25-OH Vitamin D Total PTH Intact Urine pH Urine WBC (Auto) Urine Creatinine Urine Total Protein Fluid Total Protein Vancomycin Trough Rheumatoid Factor Complement C4 Miscellaneous Test Crossmatch 12/19/16 12/19/16 12/19/16 09:36 11:12 18:29 WBC RBC Hgb Hct MCV MCH MCHC RDW Plt Count Lymph % (Auto) [place] % (Auto) Lymph # [place] # Baso # Seg Neutrophils % Seg Neuts % (Manual) Lymphocytes % (Manual) Monocytes % (Manual) Eosinophils % (Manual) Basophils % (Manual) Nucleated RBC % Seg Neutrophils # Seg Neutrophils # Man Lymphocytes # (Manual) Monocytes # (Manual) Eosinophils # (Manual) Basophils # (Manual) PT INR Fibrinogen dRVVT Confirm Interp Factor V Activity POC ABG pH 7.503 H POC ABG pCO2 30.1 L POC ABG pO2 ABG pO2 ABG HCO3 ABG Base Excess ABG Hemoglobin Oxyhemoglobin Sodium Potassium Chloride Carbon Dioxide BUN Creatinine Glucose POC Glucose 138 H 156 H Lactic Acid Calcium Ionized Calcium Phosphorus Magnesium Direct Bilirubin AST ALT Alkaline Phosphatase Lactate Dehydrogenase Troponin T C-Reactive Protein Total Protein Albumin Prealbumin Triglycerides Cholesterol LDL Cholesterol Direct HDL Cholesterol 25-OH Vitamin D Total PTH Intact Urine pH Urine WBC (Auto) Urine Creatinine Urine Total Protein Fluid Total Protein Vancomycin Trough Rheumatoid Factor Complement C4 Miscellaneous Test Crossmatch 12/20/16 12/20/16 12/20/16 00:03 06:17 07:07 WBC RBC Hgb Hct MCV MCH MCHC RDW Plt Count Lymph % (Auto) [place] % (Auto) Lymph # [place] # Baso # Seg Neutrophils % Seg Neuts % (Manual) Lymphocytes % (Manual) Monocytes % (Manual) Eosinophils % (Manual) Basophils % (Manual) Nucleated RBC % Seg Neutrophils # Seg Neutrophils # Man Lymphocytes # (Manual) Monocytes # (Manual) Eosinophils # (Manual) Basophils # (Manual) PT INR Fibrinogen dRVVT Confirm Interp Factor V Activity POC ABG pH POC ABG pCO2 POC ABG pO2 ABG pO2 ABG HCO3 ABG Base Excess ABG Hemoglobin Oxyhemoglobin Sodium Potassium Chloride 97.1 L Carbon Dioxide 20 L BUN 97 H Creatinine 1.8 H Glucose 153 H POC Glucose 152 H 175 H Lactic Acid Calcium Ionized Calcium Phosphorus Magnesium Direct Bilirubin AST ALT Alkaline Phosphatase Lactate Dehydrogenase Troponin T C-Reactive Protein Total Protein Albumin Prealbumin Triglycerides Cholesterol LDL Cholesterol Direct HDL Cholesterol 25-OH Vitamin D Total PTH Intact Urine pH Urine WBC (Auto) Urine Creatinine Urine Total Protein Fluid Total Protein Vancomycin Trough Rheumatoid Factor Complement C4 Miscellaneous Test Crossmatch 12/20/16 12/20/16 12/20/16 12:00 17:42 23:53 WBC RBC Hgb Hct MCV MCH MCHC RDW Plt Count Lymph % (Auto) [place] % (Auto) Lymph # [place] # Baso # Seg Neutrophils % Seg Neuts % (Manual) Lymphocytes % (Manual) Monocytes % (Manual) Eosinophils % (Manual) Basophils % (Manual) Nucleated RBC % Seg Neutrophils # Seg Neutrophils # Man Lymphocytes # (Manual) Monocytes # (Manual) Eosinophils # (Manual) Basophils # (Manual) PT INR Fibrinogen dRVVT Confirm Interp Factor V Activity POC ABG pH POC ABG pCO2 POC ABG pO2 ABG pO2 ABG HCO3 ABG Base Excess ABG Hemoglobin Oxyhemoglobin Sodium Potassium Chloride Carbon Dioxide BUN Creatinine Glucose POC Glucose 141 H 156 H 132 H Lactic Acid Calcium Ionized Calcium Phosphorus Magnesium Direct Bilirubin AST ALT Alkaline Phosphatase Lactate Dehydrogenase Troponin T C-Reactive Protein Total Protein Albumin Prealbumin Triglycerides Cholesterol LDL Cholesterol Direct HDL Cholesterol 25-OH Vitamin D Total PTH Intact Urine pH Urine WBC (Auto) Urine Creatinine Urine Total Protein Fluid Total Protein Vancomycin Trough Rheumatoid Factor Complement C4 Miscellaneous Test Crossmatch 12/21/16 12/21/16 12/21/16 05:49 08:50 12:19 WBC RBC Hgb Hct MCV MCH MCHC RDW Plt Count Lymph % (Auto) [place] % (Auto) Lymph # [place] # Baso # Seg Neutrophils % Seg Neuts % (Manual) Lymphocytes % (Manual) Monocytes % (Manual) Eosinophils % (Manual) Basophils % (Manual) Nucleated RBC % Seg Neutrophils # Seg Neutrophils # Man Lymphocytes # (Manual) Monocytes # (Manual) Eosinophils # (Manual) Basophils # (Manual) PT INR Fibrinogen dRVVT Confirm Interp Factor V Activity POC ABG pH POC ABG pCO2 POC ABG pO2 ABG pO2 ABG HCO3 ABG Base Excess ABG Hemoglobin Oxyhemoglobin Sodium Potassium 5.2 H D Chloride Carbon Dioxide BUN 63 H Creatinine Glucose 122 H POC Glucose 132 H 136 H Lactic Acid Calcium 8.3 L Ionized Calcium Phosphorus Magnesium Direct Bilirubin AST ALT Alkaline Phosphatase Lactate Dehydrogenase Troponin T C-Reactive Protein Total Protein Albumin Prealbumin Triglycerides Cholesterol LDL Cholesterol Direct HDL Cholesterol 25-OH Vitamin D Total PTH Intact Urine pH Urine WBC (Auto) Urine Creatinine Urine Total Protein Fluid Total Protein Vancomycin Trough Rheumatoid Factor Complement C4 Miscellaneous Test Crossmatch 12/21/16 12/21/16 12/22/16 17:22 23:58 05:49 WBC RBC Hgb Hct MCV MCH MCHC RDW Plt Count Lymph % (Auto) [place] % (Auto) Lymph # [place] # Baso # Seg Neutrophils % Seg Neuts % (Manual) Lymphocytes % (Manual) Monocytes % (Manual) Eosinophils % (Manual) Basophils % (Manual) Nucleated RBC % Seg Neutrophils # Seg Neutrophils # Man Lymphocytes # (Manual) Monocytes # (Manual) Eosinophils # (Manual) Basophils # (Manual) PT INR Fibrinogen dRVVT Confirm Interp Factor V Activity POC ABG pH POC ABG pCO2 POC ABG pO2 ABG pO2 ABG HCO3 ABG Base Excess ABG Hemoglobin Oxyhemoglobin Sodium Potassium Chloride Carbon Dioxide BUN Creatinine Glucose POC Glucose 135 H 149 H 140 H Lactic Acid Calcium Ionized Calcium Phosphorus Magnesium Direct Bilirubin AST ALT Alkaline Phosphatase Lactate Dehydrogenase Troponin T C-Reactive Protein Total Protein Albumin Prealbumin Triglycerides Cholesterol LDL Cholesterol Direct HDL Cholesterol 25-OH Vitamin D Total PTH Intact Urine pH Urine WBC (Auto) Urine Creatinine Urine Total Protein Fluid Total Protein Vancomycin Trough Rheumatoid Factor Complement C4 Miscellaneous Test Crossmatch 12/22/16 12/22/16 12/22/16 06:10 11:17 17:31 WBC RBC Hgb Hct MCV MCH MCHC RDW Plt Count Lymph % (Auto) [place] % (Auto) Lymph # [place] # Baso # Seg Neutrophils % Seg Neuts % (Manual) Lymphocytes % (Manual) Monocytes % (Manual) Eosinophils % (Manual) Basophils % (Manual) Nucleated RBC % Seg Neutrophils # Seg Neutrophils # Man Lymphocytes # (Manual) Monocytes # (Manual) Eosinophils # (Manual) Basophils # (Manual) PT INR Fibrinogen dRVVT Confirm Interp Factor V Activity POC ABG pH POC ABG pCO2 POC ABG pO2 ABG pO2 ABG HCO3 ABG Base Excess ABG Hemoglobin Oxyhemoglobin Sodium Potassium Chloride Carbon Dioxide BUN 76 H Creatinine 1.5 H Glucose 241 H POC Glucose 193 H 148 H Lactic Acid Calcium Ionized Calcium Phosphorus Magnesium Direct Bilirubin AST ALT Alkaline Phosphatase Lactate Dehydrogenase Troponin T C-Reactive Protein Total Protein Albumin Prealbumin Triglycerides Cholesterol LDL Cholesterol Direct HDL Cholesterol 25-OH Vitamin D Total PTH Intact Urine pH Urine WBC (Auto) Urine Creatinine Urine Total Protein Fluid Total Protein Vancomycin Trough Rheumatoid Factor Complement C4 Miscellaneous Test Crossmatch 12/22/16 12/23/16 12/23/16 23:58 05:00 05:26 WBC RBC Hgb Hct MCV MCH MCHC RDW Plt Count Lymph % (Auto) [place] % (Auto) Lymph # [place] # Baso # Seg Neutrophils % Seg Neuts % (Manual) Lymphocytes % (Manual) Monocytes % (Manual) Eosinophils % (Manual) Basophils % (Manual) Nucleated RBC % Seg Neutrophils # Seg Neutrophils # Man Lymphocytes # (Manual) Monocytes # (Manual) Eosinophils # (Manual) Basophils # (Manual) PT INR Fibrinogen dRVVT Confirm Interp Factor V Activity POC ABG pH POC ABG pCO2 POC ABG pO2 ABG pO2 ABG HCO3 ABG Base Excess ABG Hemoglobin Oxyhemoglobin Sodium Potassium Chloride Carbon Dioxide BUN 49 H Creatinine Glucose 143 H POC Glucose 165 H 154 H Lactic Acid Calcium 8.2 L Ionized Calcium Phosphorus Magnesium 1.60 L Direct Bilirubin AST ALT Alkaline Phosphatase Lactate Dehydrogenase Troponin T C-Reactive Protein Total Protein Albumin Prealbumin Triglycerides Cholesterol LDL Cholesterol Direct HDL Cholesterol 25-OH Vitamin D Total PTH Intact Urine pH Urine WBC (Auto) Urine Creatinine Urine Total Protein Fluid Total Protein Vancomycin Trough Rheumatoid Factor Complement C4 Miscellaneous Test Crossmatch 12/23/16 12/23/16 12/24/16 12:35 17:01 00:01 WBC RBC Hgb Hct MCV MCH MCHC RDW Plt Count Lymph % (Auto) [place] % (Auto) Lymph # [place] # Baso # Seg Neutrophils % Seg Neuts % (Manual) Lymphocytes % (Manual) Monocytes % (Manual) Eosinophils % (Manual) Basophils % (Manual) Nucleated RBC % Seg Neutrophils # Seg Neutrophils # Man Lymphocytes # (Manual) Monocytes # (Manual) Eosinophils # (Manual) Basophils # (Manual) PT INR Fibrinogen dRVVT Confirm Interp Factor V Activity POC ABG pH POC ABG pCO2 POC ABG pO2 ABG pO2 ABG HCO3 ABG Base Excess ABG Hemoglobin Oxyhemoglobin Sodium Potassium Chloride Carbon Dioxide BUN Creatinine Glucose POC Glucose 164 H 149 H 135 H Lactic Acid Calcium Ionized Calcium Phosphorus Magnesium Direct Bilirubin AST ALT Alkaline Phosphatase Lactate Dehydrogenase Troponin T C-Reactive Protein Total Protein Albumin Prealbumin Triglycerides Cholesterol LDL Cholesterol Direct HDL Cholesterol 25-OH Vitamin D Total PTH Intact Urine pH Urine WBC (Auto) Urine Creatinine Urine Total Protein Fluid Total Protein Vancomycin Trough Rheumatoid Factor Complement C4 Miscellaneous Test Crossmatch 12/24/16 12/24/16 12/24/16 05:41 07:01 11:38 WBC RBC Hgb Hct MCV MCH MCHC RDW Plt Count Lymph % (Auto) [place] % (Auto) Lymph # [place] # Baso # Seg Neutrophils % Seg Neuts % (Manual) Lymphocytes % (Manual) Monocytes % (Manual) Eosinophils % (Manual) Basophils % (Manual) Nucleated RBC % Seg Neutrophils # Seg Neutrophils # Man Lymphocytes # (Manual) Monocytes # (Manual) Eosinophils # (Manual) Basophils # (Manual) PT INR Fibrinogen dRVVT Confirm Interp Factor V Activity POC ABG pH POC ABG pCO2 POC ABG pO2 ABG pO2 ABG HCO3 ABG Base Excess ABG Hemoglobin Oxyhemoglobin Sodium Potassium Chloride Carbon Dioxide BUN 72 H Creatinine 1.3 H Glucose 130 H POC Glucose 132 H 156 H Lactic Acid Calcium 8.2 L Ionized Calcium Phosphorus Magnesium Direct Bilirubin AST ALT Alkaline Phosphatase Lactate Dehydrogenase Troponin T C-Reactive Protein Total Protein Albumin Prealbumin Triglycerides Cholesterol LDL Cholesterol Direct HDL Cholesterol 25-OH Vitamin D Total PTH Intact Urine pH Urine WBC (Auto) Urine Creatinine Urine Total Protein Fluid Total Protein Vancomycin Trough Rheumatoid Factor Complement C4 Miscellaneous Test Crossmatch 12/24/16 12/25/16 12/25/16 17:53 00:23 05:45 WBC RBC Hgb Hct MCV MCH MCHC RDW Plt Count Lymph % (Auto) [place] % (Auto) Lymph # [place] # Baso # Seg Neutrophils % Seg Neuts % (Manual) Lymphocytes % (Manual) Monocytes % (Manual) Eosinophils % (Manual) Basophils % (Manual) Nucleated RBC % Seg Neutrophils # Seg Neutrophils # Man Lymphocytes # (Manual) Monocytes # (Manual) Eosinophils # (Manual) Basophils # (Manual) PT INR Fibrinogen dRVVT Confirm Interp Factor V Activity POC ABG pH POC ABG pCO2 POC ABG pO2 ABG pO2 ABG HCO3 ABG Base Excess ABG Hemoglobin Oxyhemoglobin Sodium 146 H Potassium Chloride Carbon Dioxide BUN 51 H Creatinine Glucose 109 H POC Glucose 169 H 117 H Lactic Acid Calcium Ionized Calcium Phosphorus Magnesium Direct Bilirubin AST ALT Alkaline Phosphatase Lactate Dehydrogenase Troponin T C-Reactive Protein Total Protein Albumin Prealbumin Triglycerides Cholesterol LDL Cholesterol Direct HDL Cholesterol 25-OH Vitamin D Total PTH Intact Urine pH Urine WBC (Auto) Urine Creatinine Urine Total Protein Fluid Total Protein Vancomycin Trough Rheumatoid Factor Complement C4 Miscellaneous Test Crossmatch 12/25/16 12/25/16 12/25/16 06:43 11:29 17:14 WBC RBC Hgb Hct MCV MCH MCHC RDW Plt Count Lymph % (Auto) [place] % (Auto) Lymph # [place] # Baso # Seg Neutrophils % Seg Neuts % (Manual) Lymphocytes % (Manual) Monocytes % (Manual) Eosinophils % (Manual) Basophils % (Manual) Nucleated RBC % Seg Neutrophils # Seg Neutrophils # Man Lymphocytes # (Manual) Monocytes # (Manual) Eosinophils # (Manual) Basophils # (Manual) PT INR Fibrinogen dRVVT Confirm Interp Factor V Activity POC ABG pH POC ABG pCO2 POC ABG pO2 ABG pO2 ABG HCO3 ABG Base Excess ABG Hemoglobin Oxyhemoglobin Sodium Potassium Chloride Carbon Dioxide BUN Creatinine Glucose POC Glucose 117 H 128 H 120 H Lactic Acid Calcium Ionized Calcium Phosphorus Magnesium Direct Bilirubin AST ALT Alkaline Phosphatase Lactate Dehydrogenase Troponin T C-Reactive Protein Total Protein Albumin Prealbumin Triglycerides Cholesterol LDL Cholesterol Direct HDL Cholesterol 25-OH Vitamin D Total PTH Intact Urine pH Urine WBC (Auto) Urine Creatinine Urine Total Protein Fluid Total Protein Vancomycin Trough Rheumatoid Factor Complement C4 Miscellaneous Test Crossmatch 12/25/16 12/26/16 12/26/16 23:54 05:40 05:50 WBC 16.2 H RBC 2.32 L Hgb 6.2 L Hct 20.1 L MCV MCH 27 L MCHC RDW 18.6 H Plt Count Lymph % (Auto) [place] % (Auto) Lymph # [place] # Baso # Seg Neutrophils % Seg Neuts % (Manual) Lymphocytes % (Manual) Monocytes % (Manual) Eosinophils % (Manual) Basophils % (Manual) Nucleated RBC % Seg Neutrophils # Seg Neutrophils # Man Lymphocytes # (Manual) Monocytes # (Manual) Eosinophils # (Manual) Basophils # (Manual) PT INR Fibrinogen dRVVT Confirm Interp Factor V Activity POC ABG pH POC ABG pCO2 POC ABG pO2 ABG pO2 ABG HCO3 ABG Base Excess ABG Hemoglobin Oxyhemoglobin Sodium Potassium Chloride Carbon Dioxide BUN Creatinine Glucose POC Glucose 126 H 132 H Lactic Acid Calcium Ionized Calcium Phosphorus Magnesium Direct Bilirubin AST ALT Alkaline Phosphatase Lactate Dehydrogenase Troponin T C-Reactive Protein Total Protein Albumin Prealbumin Triglycerides Cholesterol LDL Cholesterol Direct HDL Cholesterol 25-OH Vitamin D Total PTH Intact Urine pH Urine WBC (Auto) Urine Creatinine Urine Total Protein Fluid Total Protein Vancomycin Trough Rheumatoid Factor Complement C4 Miscellaneous Test Crossmatch 12/26/16 12/26/16 12/26/16 05:50 12:17 12:33 WBC RBC Hgb Hct MCV MCH MCHC RDW Plt Count Lymph % (Auto) [place] % (Auto) Lymph # [place] # Baso # Seg Neutrophils % Seg Neuts % (Manual) Lymphocytes % (Manual) Monocytes % (Manual) Eosinophils % (Manual) Basophils % (Manual) Nucleated RBC % Seg Neutrophils # Seg Neutrophils # Man Lymphocytes # (Manual) Monocytes # (Manual) Eosinophils # (Manual) Basophils # (Manual) PT INR Fibrinogen dRVVT Confirm Interp Factor V Activity POC ABG pH POC ABG pCO2 POC ABG pO2 ABG pO2 ABG HCO3 ABG Base Excess ABG Hemoglobin Oxyhemoglobin Sodium Potassium Chloride Carbon Dioxide BUN 73 H Creatinine 1.3 H Glucose 113 H POC Glucose 117 H Lactic Acid Calcium Ionized Calcium Phosphorus Magnesium Direct Bilirubin AST ALT Alkaline Phosphatase Lactate Dehydrogenase Troponin T C-Reactive Protein Total Protein Albumin Prealbumin Triglycerides Cholesterol LDL Cholesterol Direct HDL Cholesterol 25-OH Vitamin D Total PTH Intact Urine pH Urine WBC (Auto) Urine Creatinine Urine Total Protein Fluid Total Protein Vancomycin Trough Rheumatoid Factor Complement C4 Miscellaneous Test Crossmatch See Detail 12/26/16 12/26/16 12/27/16 20:00 23:21 05:00 WBC RBC Hgb 8.4 L Hct 26.3 L D MCV MCH MCHC RDW Plt Count Lymph % (Auto) [place] % (Auto) Lymph # [place] # Baso # Seg Neutrophils % Seg Neuts % (Manual) Lymphocytes % (Manual) Monocytes % (Manual) Eosinophils % (Manual) Basophils % (Manual) Nucleated RBC % Seg Neutrophils # Seg Neutrophils # Man Lymphocytes # (Manual) Monocytes # (Manual) Eosinophils # (Manual) Basophils # (Manual) PT INR Fibrinogen dRVVT Confirm Interp Factor V Activity POC ABG pH POC ABG pCO2 POC ABG pO2 ABG pO2 ABG HCO3 ABG Base Excess ABG Hemoglobin Oxyhemoglobin Sodium Potassium Chloride Carbon Dioxide BUN 85 H Creatinine 1.6 H Glucose 118 H POC Glucose 124 H Lactic Acid Calcium Ionized Calcium Phosphorus 4.80 H Magnesium Direct Bilirubin AST ALT Alkaline Phosphatase Lactate Dehydrogenase Troponin T C-Reactive Protein Total Protein Albumin Prealbumin Triglycerides Cholesterol LDL Cholesterol Direct HDL Cholesterol 25-OH Vitamin D Total PTH Intact Urine pH Urine WBC (Auto) Urine Creatinine Urine Total Protein Fluid Total Protein Vancomycin Trough Rheumatoid Factor Complement C4 Miscellaneous Test Crossmatch 12/27/16 12/27/16 12/27/16 05:00 05:35 12:24 WBC RBC Hgb 7.6 L Hct 22.8 L MCV MCH MCHC RDW Plt Count Lymph % (Auto) [place] % (Auto) Lymph # [place] # Baso # Seg Neutrophils % Seg Neuts % (Manual) Lymphocytes % (Manual) Monocytes % (Manual) Eosinophils % (Manual) Basophils % (Manual) Nucleated RBC % Seg Neutrophils # Seg Neutrophils # Man Lymphocytes # (Manual) Monocytes # (Manual) Eosinophils # (Manual) Basophils # (Manual) PT INR Fibrinogen dRVVT Confirm Interp Factor V Activity POC ABG pH POC ABG pCO2 POC ABG pO2 ABG pO2 ABG HCO3 ABG Base Excess ABG Hemoglobin Oxyhemoglobin Sodium Potassium Chloride Carbon Dioxide BUN Creatinine Glucose POC Glucose 115 H 131 H Lactic Acid Calcium Ionized Calcium Phosphorus Magnesium Direct Bilirubin AST ALT Alkaline Phosphatase Lactate Dehydrogenase Troponin T C-Reactive Protein Total Protein Albumin Prealbumin Triglycerides Cholesterol LDL Cholesterol Direct HDL Cholesterol 25-OH Vitamin D Total PTH Intact Urine pH Urine WBC (Auto) Urine Creatinine Urine Total Protein Fluid Total Protein Vancomycin Trough Rheumatoid Factor Complement C4 Miscellaneous Test Crossmatch 12/27/16 12/28/16 12/28/16 17:16 00:18 04:00 WBC RBC Hgb Hct MCV MCH MCHC RDW Plt Count Lymph % (Auto) [place] % (Auto) Lymph # [place] # Baso # Seg Neutrophils % Seg Neuts % (Manual) Lymphocytes % (Manual) Monocytes % (Manual) Eosinophils % (Manual) Basophils % (Manual) Nucleated RBC % Seg Neutrophils # Seg Neutrophils # Man Lymphocytes # (Manual) Monocytes # (Manual) Eosinophils # (Manual) Basophils # (Manual) PT INR Fibrinogen dRVVT Confirm Interp Factor V Activity POC ABG pH POC ABG pCO2 POC ABG pO2 ABG pO2 ABG HCO3 ABG Base Excess ABG Hemoglobin Oxyhemoglobin Sodium Potassium 3.5 L Chloride Carbon Dioxide BUN 57 H Creatinine Glucose 118 H POC Glucose 136 H 120 H Lactic Acid Calcium 8.3 L Ionized Calcium Phosphorus Magnesium Direct Bilirubin AST ALT Alkaline Phosphatase Lactate Dehydrogenase Troponin T C-Reactive Protein Total Protein Albumin Prealbumin Triglycerides Cholesterol LDL Cholesterol Direct HDL Cholesterol 25-OH Vitamin D Total PTH Intact Urine pH Urine WBC (Auto) Urine Creatinine Urine Total Protein Fluid Total Protein Vancomycin Trough Rheumatoid Factor Complement C4 Miscellaneous Test Crossmatch 12/28/16 12/28/16 12/28/16 04:00 05:11 08:30 WBC 17.0 H RBC 2.58 L Hgb 7.1 L Hct 22.0 L MCV MCH MCHC RDW 17.6 H Plt Count Lymph % (Auto) 12.2 L [place] % (Auto) Lymph # [place] # 1.1 H Baso # Seg Neutrophils % 80.5 H Seg Neuts % (Manual) Lymphocytes % (Manual) Monocytes % (Manual) Eosinophils % (Manual) Basophils % (Manual) Nucleated RBC % Seg Neutrophils # 13.7 H Seg Neutrophils # Man Lymphocytes # (Manual) Monocytes # (Manual) Eosinophils # (Manual) Basophils # (Manual) PT 16.1 H INR 1.23 H Fibrinogen dRVVT Confirm Interp Factor V Activity POC ABG pH POC ABG pCO2 POC ABG pO2 ABG pO2 ABG HCO3 ABG Base Excess ABG Hemoglobin Oxyhemoglobin Sodium Potassium Chloride Carbon Dioxide BUN Creatinine Glucose POC Glucose 122 H Lactic Acid Calcium Ionized Calcium Phosphorus Magnesium Direct Bilirubin AST ALT Alkaline Phosphatase Lactate Dehydrogenase Troponin T C-Reactive Protein Total Protein Albumin Prealbumin Triglycerides Cholesterol LDL Cholesterol Direct HDL Cholesterol 25-OH Vitamin D Total PTH Intact Urine pH Urine WBC (Auto) Urine Creatinine Urine Total Protein Fluid Total Protein Vancomycin Trough Rheumatoid Factor Complement C4 Miscellaneous Test Crossmatch 12/28/16 12/28/16 12/28/16 12:27 16:32 23:46 WBC RBC Hgb Hct MCV MCH MCHC RDW Plt Count Lymph % (Auto) [place] % (Auto) Lymph # [place] # Baso # Seg Neutrophils % Seg Neuts % (Manual) Lymphocytes % (Manual) Monocytes % (Manual) Eosinophils % (Manual) Basophils % (Manual) Nucleated RBC % Seg Neutrophils # Seg Neutrophils # Man Lymphocytes # (Manual) Monocytes # (Manual) Eosinophils # (Manual) Basophils # (Manual) PT INR Fibrinogen dRVVT Confirm Interp Factor V Activity POC ABG pH POC ABG pCO2 POC ABG pO2 ABG pO2 ABG HCO3 ABG Base Excess ABG Hemoglobin Oxyhemoglobin Sodium Potassium Chloride Carbon Dioxide BUN Creatinine Glucose POC Glucose 127 H 117 H 108 H Lactic Acid Calcium Ionized Calcium Phosphorus Magnesium Direct Bilirubin AST ALT Alkaline Phosphatase Lactate Dehydrogenase Troponin T C-Reactive Protein Total Protein Albumin Prealbumin Triglycerides Cholesterol LDL Cholesterol Direct HDL Cholesterol 25-OH Vitamin D Total PTH Intact Urine pH Urine WBC (Auto) Urine Creatinine Urine Total Protein Fluid Total Protein Vancomycin Trough Rheumatoid Factor Complement C4 Miscellaneous Test Crossmatch 12/29/16 12/29/16 12/29/16 05:15 05:15 05:32 WBC RBC Hgb Hct MCV MCH MCHC RDW Plt Count Lymph % (Auto) [place] % (Auto) Lymph # [place] # Baso # Seg Neutrophils % Seg Neuts % (Manual) Lymphocytes % (Manual) Monocytes % (Manual) Eosinophils % (Manual) Basophils % (Manual) Nucleated RBC % Seg Neutrophils # Seg Neutrophils # Man Lymphocytes # (Manual) Monocytes # (Manual) Eosinophils # (Manual) Basophils # (Manual) PT INR Fibrinogen dRVVT Confirm Interp Factor V Activity POC ABG pH POC ABG pCO2 POC ABG pO2 ABG pO2 ABG HCO3 ABG Base Excess ABG Hemoglobin Oxyhemoglobin Sodium Potassium Chloride Carbon Dioxide BUN 74 H Creatinine 1.6 H Glucose 111 H POC Glucose 123 H Lactic Acid Calcium Ionized Calcium Phosphorus Magnesium Direct Bilirubin AST ALT Alkaline Phosphatase Lactate Dehydrogenase Troponin T C-Reactive Protein Total Protein Albumin Prealbumin 0.110 L Triglycerides Cholesterol LDL Cholesterol Direct HDL Cholesterol 25-OH Vitamin D Total PTH Intact Urine pH Urine WBC (Auto) Urine Creatinine Urine Total Protein Fluid Total Protein Vancomycin Trough Rheumatoid Factor Complement C4 Miscellaneous Test Crossmatch 12/29/16 12/29/16 12/29/16 11:43 13:45 14:00 WBC 13.8 H RBC 2.26 L Hgb 6.3 L Hct 20.4 L MCV MCH MCHC RDW 18.3 H Plt Count Lymph % (Auto) [place] % (Auto) Lymph # [place] # 0.9 H Baso # Seg Neutrophils % 78.6 H Seg Neuts % (Manual) Lymphocytes % (Manual) Monocytes % (Manual) Eosinophils % (Manual) Basophils % (Manual) Nucleated RBC % Seg Neutrophils # 10.8 H Seg Neutrophils # Man Lymphocytes # (Manual) Monocytes # (Manual) Eosinophils # (Manual) Basophils # (Manual) PT INR Fibrinogen dRVVT Confirm Interp Factor V Activity POC ABG pH POC ABG pCO2 POC ABG pO2 ABG pO2 ABG HCO3 ABG Base Excess ABG Hemoglobin Oxyhemoglobin Sodium Potassium Chloride Carbon Dioxide BUN Creatinine Glucose POC Glucose 133 H Lactic Acid Calcium Ionized Calcium Phosphorus Magnesium Direct Bilirubin AST ALT Alkaline Phosphatase Lactate Dehydrogenase Troponin T C-Reactive Protein Total Protein Albumin Prealbumin Triglycerides Cholesterol LDL Cholesterol Direct HDL Cholesterol 25-OH Vitamin D Total PTH Intact Urine pH Urine WBC (Auto) Urine Creatinine Urine Total Protein Fluid Total Protein Vancomycin Trough Rheumatoid Factor Complement C4 Miscellaneous Test Crossmatch See Detail 12/29/16 12/29/16 12/29/16 17:03 23:15 23:22 WBC RBC Hgb 7.3 L Hct 22.3 L MCV MCH MCHC RDW Plt Count Lymph % (Auto) [place] % (Auto) Lymph # [place] # Baso # Seg Neutrophils % Seg Neuts % (Manual) Lymphocytes % (Manual) Monocytes % (Manual) Eosinophils % (Manual) Basophils % (Manual) Nucleated RBC % Seg Neutrophils # Seg Neutrophils # Man Lymphocytes # (Manual) Monocytes # (Manual) Eosinophils # (Manual) Basophils # (Manual) PT INR Fibrinogen dRVVT Confirm Interp Factor V Activity POC ABG pH POC ABG pCO2 POC ABG pO2 ABG pO2 ABG HCO3 ABG Base Excess ABG Hemoglobin Oxyhemoglobin Sodium Potassium Chloride Carbon Dioxide BUN Creatinine Glucose POC Glucose 139 H 120 H Lactic Acid Calcium Ionized Calcium Phosphorus Magnesium Direct Bilirubin AST ALT Alkaline Phosphatase Lactate Dehydrogenase Troponin T C-Reactive Protein Total Protein Albumin Prealbumin Triglycerides Cholesterol LDL Cholesterol Direct HDL Cholesterol 25-OH Vitamin D Total PTH Intact Urine pH Urine WBC (Auto) Urine Creatinine Urine Total Protein Fluid Total Protein Vancomycin Trough Rheumatoid Factor Complement C4 Miscellaneous Test Crossmatch 12/30/16 12/30/16 12/30/16 04:20 04:20 05:43 WBC 15.6 H RBC 2.81 L Hgb 8.0 L Hct 24.0 L MCV MCH MCHC RDW 16.9 H Plt Count Lymph % (Auto) [place] % (Auto) Lymph # [place] # 1.0 H Baso # Seg Neutrophils % 76.2 H Seg Neuts % (Manual) Lymphocytes % (Manual) Monocytes % (Manual) Eosinophils % (Manual) Basophils % (Manual) Nucleated RBC % Seg Neutrophils # 11.9 H Seg Neutrophils # Man Lymphocytes # (Manual) Monocytes # (Manual) Eosinophils # (Manual) Basophils # (Manual) PT INR Fibrinogen dRVVT Confirm Interp Factor V Activity POC ABG pH POC ABG pCO2 POC ABG pO2 ABG pO2 ABG HCO3 ABG Base Excess ABG Hemoglobin Oxyhemoglobin Sodium Potassium Chloride Carbon Dioxide BUN 87 H Creatinine 1.8 H Glucose 119 H POC Glucose 115 H Lactic Acid Calcium Ionized Calcium Phosphorus Magnesium Direct Bilirubin AST ALT Alkaline Phosphatase Lactate Dehydrogenase Troponin T C-Reactive Protein Total Protein Albumin Prealbumin Triglycerides Cholesterol LDL Cholesterol Direct HDL Cholesterol 25-OH Vitamin D Total PTH Intact Urine pH Urine WBC (Auto) Urine Creatinine Urine Total Protein Fluid Total Protein Vancomycin Trough Rheumatoid Factor Complement C4 Miscellaneous Test Crossmatch 12/30/16 12/30/16 12/31/16 17:27 23:21 04:00 WBC RBC Hgb Hct MCV MCH MCHC RDW Plt Count Lymph % (Auto) [place] % (Auto) Lymph # [place] # Baso # Seg Neutrophils % Seg Neuts % (Manual) Lymphocytes % (Manual) Monocytes % (Manual) Eosinophils % (Manual) Basophils % (Manual) Nucleated RBC % Seg Neutrophils # Seg Neutrophils # Man Lymphocytes # (Manual) Monocytes # (Manual) Eosinophils # (Manual) Basophils # (Manual) PT INR Fibrinogen dRVVT Confirm Interp Factor V Activity POC ABG pH POC ABG pCO2 POC ABG pO2 ABG pO2 ABG HCO3 ABG Base Excess ABG Hemoglobin Oxyhemoglobin Sodium Potassium Chloride Carbon Dioxide BUN 59 H Creatinine Glucose 298 H POC Glucose 144 H 125 H Lactic Acid Calcium Ionized Calcium Phosphorus Magnesium Direct Bilirubin AST ALT Alkaline Phosphatase Lactate Dehydrogenase Troponin T C-Reactive Protein Total Protein Albumin Prealbumin Triglycerides Cholesterol LDL Cholesterol Direct HDL Cholesterol 25-OH Vitamin D Total PTH Intact Urine pH Urine WBC (Auto) Urine Creatinine Urine Total Protein Fluid Total Protein Vancomycin Trough Rheumatoid Factor Complement C4 Miscellaneous Test Crossmatch 12/31/16 12/31/16 12/31/16 05:11 12:18 18:17 WBC RBC Hgb Hct MCV MCH MCHC RDW Plt Count Lymph % (Auto) [place] % (Auto) Lymph # [place] # Baso # Seg Neutrophils % Seg Neuts % (Manual) Lymphocytes % (Manual) Monocytes % (Manual) Eosinophils % (Manual) Basophils % (Manual) Nucleated RBC % Seg Neutrophils # Seg Neutrophils # Man Lymphocytes # (Manual) Monocytes # (Manual) Eosinophils # (Manual) Basophils # (Manual) PT INR Fibrinogen dRVVT Confirm Interp Factor V Activity POC ABG pH POC ABG pCO2 POC ABG pO2 ABG pO2 ABG HCO3 ABG Base Excess ABG Hemoglobin Oxyhemoglobin Sodium Potassium Chloride Carbon Dioxide BUN Creatinine Glucose POC Glucose 167 H 125 H 133 H Lactic Acid Calcium Ionized Calcium Phosphorus Magnesium Direct Bilirubin AST ALT Alkaline Phosphatase Lactate Dehydrogenase Troponin T C-Reactive Protein Total Protein Albumin Prealbumin Triglycerides Cholesterol LDL Cholesterol Direct HDL Cholesterol 25-OH Vitamin D Total PTH Intact Urine pH Urine WBC (Auto) Urine Creatinine Urine Total Protein Fluid Total Protein Vancomycin Trough Rheumatoid Factor Complement C4 Miscellaneous Test Crossmatch 12/31/16 01/01/17 01/01/17 23:55 05:00 05:12 WBC RBC Hgb Hct MCV MCH MCHC RDW Plt Count Lymph % (Auto) [place] % (Auto) Lymph # [place] # Baso # Seg Neutrophils % Seg Neuts % (Manual) Lymphocytes % (Manual) Monocytes % (Manual) Eosinophils % (Manual) Basophils % (Manual) Nucleated RBC % Seg Neutrophils # Seg Neutrophils # Man Lymphocytes # (Manual) Monocytes # (Manual) Eosinophils # (Manual) Basophils # (Manual) PT INR Fibrinogen dRVVT Confirm Interp Factor V Activity POC ABG pH POC ABG pCO2 POC ABG pO2 ABG pO2 ABG HCO3 ABG Base Excess ABG Hemoglobin Oxyhemoglobin Sodium Potassium Chloride Carbon Dioxide BUN 76 H Creatinine 1.5 H Glucose 109 H POC Glucose 129 H 129 H Lactic Acid Calcium Ionized Calcium Phosphorus Magnesium Direct Bilirubin AST ALT Alkaline Phosphatase 536 H Lactate Dehydrogenase Troponin T C-Reactive Protein Total Protein Albumin 1.5 L Prealbumin Triglycerides Cholesterol LDL Cholesterol Direct HDL Cholesterol 25-OH Vitamin D Total PTH Intact Urine pH Urine WBC (Auto) Urine Creatinine Urine Total Protein Fluid Total Protein Vancomycin Trough Rheumatoid Factor Complement C4 Miscellaneous Test Crossmatch 01/01/17 01/01/17 01/01/17 12:25 17:01 23:32 WBC RBC Hgb Hct MCV MCH MCHC RDW Plt Count Lymph % (Auto) [place] % (Auto) Lymph # [place] # Baso # Seg Neutrophils % Seg Neuts % (Manual) Lymphocytes % (Manual) Monocytes % (Manual) Eosinophils % (Manual) Basophils % (Manual) Nucleated RBC % Seg Neutrophils # Seg Neutrophils # Man Lymphocytes # (Manual) Monocytes # (Manual) Eosinophils # (Manual) Basophils # (Manual) PT INR Fibrinogen dRVVT Confirm Interp Factor V Activity POC ABG pH POC ABG pCO2 POC ABG pO2 ABG pO2 ABG HCO3 ABG Base Excess ABG Hemoglobin Oxyhemoglobin Sodium Potassium Chloride Carbon Dioxide BUN Creatinine Glucose POC Glucose 140 H 142 H 112 H Lactic Acid Calcium Ionized Calcium Phosphorus Magnesium Direct Bilirubin AST ALT Alkaline Phosphatase Lactate Dehydrogenase Troponin T C-Reactive Protein Total Protein Albumin Prealbumin Triglycerides Cholesterol LDL Cholesterol Direct HDL Cholesterol 25-OH Vitamin D Total PTH Intact Urine pH Urine WBC (Auto) Urine Creatinine Urine Total Protein Fluid Total Protein Vancomycin Trough Rheumatoid Factor Complement C4 Miscellaneous Test Crossmatch 01/02/17 01/02/17 01/02/17 04:56 06:00 11:37 WBC RBC Hgb Hct MCV MCH MCHC RDW Plt Count Lymph % (Auto) [place] % (Auto) Lymph # [place] # Baso # Seg Neutrophils % Seg Neuts % (Manual) Lymphocytes % (Manual) Monocytes % (Manual) Eosinophils % (Manual) Basophils % (Manual) Nucleated RBC % Seg Neutrophils # Seg Neutrophils # Man Lymphocytes # (Manual) Monocytes # (Manual) Eosinophils # (Manual) Basophils # (Manual) PT INR Fibrinogen dRVVT Confirm Interp Factor V Activity POC ABG pH POC ABG pCO2 POC ABG pO2 ABG pO2 ABG HCO3 ABG Base Excess ABG Hemoglobin Oxyhemoglobin Sodium Potassium Chloride Carbon Dioxide BUN 88 H Creatinine 1.7 H Glucose 113 H POC Glucose 136 H 200 H Lactic Acid Calcium Ionized Calcium Phosphorus Magnesium Direct Bilirubin AST ALT Alkaline Phosphatase Lactate Dehydrogenase Troponin T C-Reactive Protein Total Protein Albumin Prealbumin Triglycerides Cholesterol LDL Cholesterol Direct HDL Cholesterol 25-OH Vitamin D Total PTH Intact Urine pH Urine WBC (Auto) Urine Creatinine Urine Total Protein Fluid Total Protein Vancomycin Trough Rheumatoid Factor Complement C4 Miscellaneous Test Crossmatch 01/02/17 01/02/17 01/03/17 17:42 22:52 04:54 WBC RBC Hgb Hct MCV MCH MCHC RDW Plt Count Lymph % (Auto) [place] % (Auto) Lymph # [place] # Baso # Seg Neutrophils % Seg Neuts % (Manual) Lymphocytes % (Manual) Monocytes % (Manual) Eosinophils % (Manual) Basophils % (Manual) Nucleated RBC % Seg Neutrophils # Seg Neutrophils # Man Lymphocytes # (Manual) Monocytes # (Manual) Eosinophils # (Manual) Basophils # (Manual) PT INR Fibrinogen dRVVT Confirm Interp Factor V Activity POC ABG pH POC ABG pCO2 POC ABG pO2 ABG pO2 ABG HCO3 ABG Base Excess ABG Hemoglobin Oxyhemoglobin Sodium Potassium Chloride Carbon Dioxide BUN Creatinine Glucose POC Glucose 112 H 133 H 111 H Lactic Acid Calcium Ionized Calcium Phosphorus Magnesium Direct Bilirubin AST ALT Alkaline Phosphatase Lactate Dehydrogenase Troponin T C-Reactive Protein Total Protein Albumin Prealbumin Triglycerides Cholesterol LDL Cholesterol Direct HDL Cholesterol 25-OH Vitamin D Total PTH Intact Urine pH Urine WBC (Auto) Urine Creatinine Urine Total Protein Fluid Total Protein Vancomycin Trough Rheumatoid Factor Complement C4 Miscellaneous Test Crossmatch 01/03/17 01/03/17 01/03/17 05:00 05:00 14:02 WBC 11.2 H RBC 2.56 L Hgb 7.2 L Hct 22.3 L MCV MCH MCHC RDW 17.3 H Plt Count Lymph % (Auto) [place] % (Auto) 10.0 H Lymph # [place] # 1.1 H Baso # Seg Neutrophils % 70.5 H Seg Neuts % (Manual) Lymphocytes % (Manual) Monocytes % (Manual) Eosinophils % (Manual) Basophils % (Manual) Nucleated RBC % Seg Neutrophils # 7.9 H Seg Neutrophils # Man Lymphocytes # (Manual) Monocytes # (Manual) Eosinophils # (Manual) Basophils # (Manual) PT INR Fibrinogen dRVVT Confirm Interp Factor V Activity POC ABG pH POC ABG pCO2 POC ABG pO2 ABG pO2 ABG HCO3 ABG Base Excess ABG Hemoglobin Oxyhemoglobin Sodium Potassium Chloride Carbon Dioxide BUN 60 H Creatinine 1.3 H Glucose 110 H POC Glucose 119 H Lactic Acid Calcium Ionized Calcium Phosphorus Magnesium Direct Bilirubin AST ALT Alkaline Phosphatase Lactate Dehydrogenase Troponin T C-Reactive Protein Total Protein Albumin Prealbumin Triglycerides Cholesterol LDL Cholesterol Direct HDL Cholesterol 25-OH Vitamin D Total PTH Intact Urine pH Urine WBC (Auto) Urine Creatinine Urine Total Protein Fluid Total Protein Vancomycin Trough Rheumatoid Factor Complement C4 Miscellaneous Test Crossmatch 01/03/17 01/03/17 01/04/17 18:13 23:40 05:57 WBC RBC Hgb Hct MCV MCH MCHC RDW Plt Count Lymph % (Auto) [place] % (Auto) Lymph # [place] # Baso # Seg Neutrophils % Seg Neuts % (Manual) Lymphocytes % (Manual) Monocytes % (Manual) Eosinophils % (Manual) Basophils % (Manual) Nucleated RBC % Seg Neutrophils # Seg Neutrophils # Man Lymphocytes # (Manual) Monocytes # (Manual) Eosinophils # (Manual) Basophils # (Manual) PT INR Fibrinogen dRVVT Confirm Interp Factor V Activity POC ABG pH POC ABG pCO2 POC ABG pO2 ABG pO2 ABG HCO3 ABG Base Excess ABG Hemoglobin Oxyhemoglobin Sodium Potassium Chloride Carbon Dioxide BUN Creatinine Glucose POC Glucose 107 H 129 H 111 H Lactic Acid Calcium Ionized Calcium Phosphorus Magnesium Direct Bilirubin AST ALT Alkaline Phosphatase Lactate Dehydrogenase Troponin T C-Reactive Protein Total Protein Albumin Prealbumin Triglycerides Cholesterol LDL Cholesterol Direct HDL Cholesterol 25-OH Vitamin D Total PTH Intact Urine pH Urine WBC (Auto) Urine Creatinine Urine Total Protein Fluid Total Protein Vancomycin Trough Rheumatoid Factor Complement C4 Miscellaneous Test Crossmatch 01/04/17 01/04/17 01/04/17 12:46 15:27 17:11 WBC RBC Hgb Hct MCV MCH MCHC RDW Plt Count Lymph % (Auto) [place] % (Auto) Lymph # [place] # Baso # Seg Neutrophils % Seg Neuts % (Manual) Lymphocytes % (Manual) Monocytes % (Manual) Eosinophils % (Manual) Basophils % (Manual) Nucleated RBC % Seg Neutrophils # Seg Neutrophils # Man Lymphocytes # (Manual) Monocytes # (Manual) Eosinophils # (Manual) Basophils # (Manual) PT INR Fibrinogen dRVVT Confirm Interp Factor V Activity POC ABG pH POC ABG pCO2 POC ABG pO2 ABG pO2 ABG HCO3 ABG Base Excess ABG Hemoglobin Oxyhemoglobin Sodium Potassium Chloride Carbon Dioxide BUN 43 H Creatinine Glucose 124 H POC Glucose 159 H 125 H Lactic Acid Calcium 8.0 L Ionized Calcium Phosphorus 2.10 L Magnesium Direct Bilirubin AST ALT Alkaline Phosphatase Lactate Dehydrogenase Troponin T C-Reactive Protein Total Protein Albumin Prealbumin Triglycerides Cholesterol LDL Cholesterol Direct HDL Cholesterol 25-OH Vitamin D Total PTH Intact Urine pH Urine WBC (Auto) Urine Creatinine Urine Total Protein Fluid Total Protein Vancomycin Trough Rheumatoid Factor Complement C4 Miscellaneous Test Crossmatch 01/04/17 01/05/17 01/05/17 23:31 04:00 05:46 WBC RBC Hgb Hct MCV MCH MCHC RDW Plt Count Lymph % (Auto) [place] % (Auto) Lymph # [place] # Baso # Seg Neutrophils % Seg Neuts % (Manual) Lymphocytes % (Manual) Monocytes % (Manual) Eosinophils % (Manual) Basophils % (Manual) Nucleated RBC % Seg Neutrophils # Seg Neutrophils # Man Lymphocytes # (Manual) Monocytes # (Manual) Eosinophils # (Manual) Basophils # (Manual) PT INR Fibrinogen dRVVT Confirm Interp Factor V Activity POC ABG pH POC ABG pCO2 POC ABG pO2 ABG pO2 ABG HCO3 ABG Base Excess ABG Hemoglobin Oxyhemoglobin Sodium Potassium Chloride Carbon Dioxide BUN 52 H Creatinine 1.3 H Glucose 113 H POC Glucose 123 H 118 H Lactic Acid Calcium Ionized Calcium Phosphorus 2.40 L Magnesium Direct Bilirubin AST ALT Alkaline Phosphatase Lactate Dehydrogenase Troponin T C-Reactive Protein Total Protein Albumin Prealbumin Triglycerides Cholesterol LDL Cholesterol Direct HDL Cholesterol 25-OH Vitamin D Total PTH Intact Urine pH Urine WBC (Auto) Urine Creatinine Urine Total Protein Fluid Total Protein Vancomycin Trough Rheumatoid Factor Complement C4 Miscellaneous Test Crossmatch 01/05/17 01/05/17 01/05/17 11:41 17:48 23:27 WBC RBC Hgb Hct MCV MCH MCHC RDW Plt Count Lymph % (Auto) [place] % (Auto) Lymph # [place] # Baso # Seg Neutrophils % Seg Neuts % (Manual) Lymphocytes % (Manual) Monocytes % (Manual) Eosinophils % (Manual) Basophils % (Manual) Nucleated RBC % Seg Neutrophils # Seg Neutrophils # Man Lymphocytes # (Manual) Monocytes # (Manual) Eosinophils # (Manual) Basophils # (Manual) PT INR Fibrinogen dRVVT Confirm Interp Factor V Activity POC ABG pH POC ABG pCO2 POC ABG pO2 ABG pO2 ABG HCO3 ABG Base Excess ABG Hemoglobin Oxyhemoglobin Sodium Potassium Chloride Carbon Dioxide BUN Creatinine Glucose POC Glucose 163 H 142 H 155 H Lactic Acid Calcium Ionized Calcium Phosphorus Magnesium Direct Bilirubin AST ALT Alkaline Phosphatase Lactate Dehydrogenase Troponin T C-Reactive Protein Total Protein Albumin Prealbumin Triglycerides Cholesterol LDL Cholesterol Direct HDL Cholesterol 25-OH Vitamin D Total PTH Intact Urine pH Urine WBC (Auto) Urine Creatinine Urine Total Protein Fluid Total Protein Vancomycin Trough Rheumatoid Factor Complement C4 Miscellaneous Test Crossmatch 01/06/17 01/06/17 01/06/17 05:20 07:35 11:18 WBC RBC Hgb Hct MCV MCH MCHC RDW Plt Count Lymph % (Auto) [place] % (Auto) Lymph # [place] # Baso # Seg Neutrophils % Seg Neuts % (Manual) Lymphocytes % (Manual) Monocytes % (Manual) Eosinophils % (Manual) Basophils % (Manual) Nucleated RBC % Seg Neutrophils # Seg Neutrophils # Man Lymphocytes # (Manual) Monocytes # (Manual) Eosinophils # (Manual) Basophils # (Manual) PT INR Fibrinogen dRVVT Confirm Interp Factor V Activity POC ABG pH POC ABG pCO2 POC ABG pO2 ABG pO2 ABG HCO3 ABG Base Excess ABG Hemoglobin Oxyhemoglobin Sodium Potassium Chloride Carbon Dioxide BUN 74 H Creatinine 1.6 H Glucose 135 H POC Glucose 108 H 149 H Lactic Acid Calcium Ionized Calcium Phosphorus Magnesium Direct Bilirubin AST ALT Alkaline Phosphatase Lactate Dehydrogenase Troponin T C-Reactive Protein Total Protein Albumin Prealbumin Triglycerides Cholesterol LDL Cholesterol Direct HDL Cholesterol 25-OH Vitamin D Total PTH Intact Urine pH Urine WBC (Auto) Urine Creatinine Urine Total Protein Fluid Total Protein Vancomycin Trough Rheumatoid Factor Complement C4 Miscellaneous Test Crossmatch 01/06/17 01/07/17 01/07/17 17:17 00:23 05:31 WBC RBC Hgb Hct MCV MCH MCHC RDW Plt Count Lymph % (Auto) [place] % (Auto) Lymph # [place] # Baso # Seg Neutrophils % Seg Neuts % (Manual) Lymphocytes % (Manual) Monocytes % (Manual) Eosinophils % (Manual) Basophils % (Manual) Nucleated RBC % Seg Neutrophils # Seg Neutrophils # Man Lymphocytes # (Manual) Monocytes # (Manual) Eosinophils # (Manual) Basophils # (Manual) PT INR Fibrinogen dRVVT Confirm Interp Factor V Activity POC ABG pH POC ABG pCO2 POC ABG pO2 ABG pO2 ABG HCO3 ABG Base Excess ABG Hemoglobin Oxyhemoglobin Sodium Potassium Chloride Carbon Dioxide BUN Creatinine Glucose POC Glucose 146 H 165 H 153 H Lactic Acid Calcium Ionized Calcium Phosphorus Magnesium Direct Bilirubin AST ALT Alkaline Phosphatase Lactate Dehydrogenase Troponin T C-Reactive Protein Total Protein Albumin Prealbumin Triglycerides Cholesterol LDL Cholesterol Direct HDL Cholesterol 25-OH Vitamin D Total PTH Intact Urine pH Urine WBC (Auto) Urine Creatinine Urine Total Protein Fluid Total Protein Vancomycin Trough Rheumatoid Factor Complement C4 Miscellaneous Test Crossmatch 01/07/17 01/07/17 01/07/17 06:00 11:39 17:11 WBC RBC Hgb Hct MCV MCH MCHC RDW Plt Count Lymph % (Auto) [place] % (Auto) Lymph # [place] # Baso # Seg Neutrophils % Seg Neuts % (Manual) Lymphocytes % (Manual) Monocytes % (Manual) Eosinophils % (Manual) Basophils % (Manual) Nucleated RBC % Seg Neutrophils # Seg Neutrophils # Man Lymphocytes # (Manual) Monocytes # (Manual) Eosinophils # (Manual) Basophils # (Manual) PT INR Fibrinogen dRVVT Confirm Interp Factor V Activity POC ABG pH POC ABG pCO2 POC ABG pO2 ABG pO2 ABG HCO3 ABG Base Excess ABG Hemoglobin Oxyhemoglobin Sodium Potassium Chloride Carbon Dioxide BUN 42 H Creatinine Glucose 175 H POC Glucose 163 H 163 H Lactic Acid Calcium Ionized Calcium Phosphorus 2.40 L D Magnesium Direct Bilirubin AST ALT Alkaline Phosphatase Lactate Dehydrogenase Troponin T C-Reactive Protein Total Protein Albumin Prealbumin Triglycerides Cholesterol LDL Cholesterol Direct HDL Cholesterol 25-OH Vitamin D Total PTH Intact Urine pH Urine WBC (Auto) Urine Creatinine Urine Total Protein Fluid Total Protein Vancomycin Trough Rheumatoid Factor Complement C4 Miscellaneous Test Crossmatch 01/07/17 01/08/17 01/08/17 23:40 05:00 05:00 WBC 27.4 H RBC 2.27 L Hgb 6.1 L Hct 20.4 L MCV MCH 27 L MCHC RDW 17.8 H Plt Count Lymph % (Auto) [place] % (Auto) Lymph # [place] # Baso # Seg Neutrophils % Seg Neuts % (Manual) Lymphocytes % (Manual) Monocytes % (Manual) Eosinophils % (Manual) Basophils % (Manual) Nucleated RBC % Seg Neutrophils # Seg Neutrophils # Man Lymphocytes # (Manual) Monocytes # (Manual) Eosinophils # (Manual) Basophils # (Manual) PT INR Fibrinogen dRVVT Confirm Interp Factor V Activity POC ABG pH POC ABG pCO2 POC ABG pO2 ABG pO2 ABG HCO3 ABG Base Excess ABG Hemoglobin Oxyhemoglobin Sodium Potassium Chloride Carbon Dioxide 16 L D BUN 62 H Creatinine 1.6 H D Glucose 103 H POC Glucose 135 H Lactic Acid Calcium Ionized Calcium Phosphorus Magnesium Direct Bilirubin AST ALT Alkaline Phosphatase Lactate Dehydrogenase Troponin T C-Reactive Protein Total Protein Albumin Prealbumin Triglycerides Cholesterol LDL Cholesterol Direct HDL Cholesterol 25-OH Vitamin D Total PTH Intact Urine pH Urine WBC (Auto) Urine Creatinine Urine Total Protein Fluid Total Protein Vancomycin Trough Rheumatoid Factor Complement C4 Miscellaneous Test Crossmatch 01/08/17 01/08/17 01/08/17 05:25 10:37 10:37 WBC RBC Hgb Hct MCV MCH MCHC RDW Plt Count Lymph % (Auto) [place] % (Auto) Lymph # [place] # Baso # Seg Neutrophils % Seg Neuts % (Manual) Lymphocytes % (Manual) Monocytes % (Manual) Eosinophils % (Manual) Basophils % (Manual) Nucleated RBC % Seg Neutrophils # Seg Neutrophils # Man Lymphocytes # (Manual) Monocytes # (Manual) Eosinophils # (Manual) Basophils # (Manual) PT INR Fibrinogen dRVVT Confirm Interp Factor V Activity POC ABG pH POC ABG pCO2 POC ABG pO2 ABG pO2 ABG HCO3 ABG Base Excess ABG Hemoglobin Oxyhemoglobin Sodium Potassium Chloride Carbon Dioxide BUN Creatinine Glucose POC Glucose 106 H Lactic Acid Calcium Ionized Calcium Phosphorus Magnesium Direct Bilirubin AST ALT Alkaline Phosphatase Lactate Dehydrogenase Troponin T C-Reactive Protein 24.40 H Total Protein Albumin Prealbumin Triglycerides Cholesterol LDL Cholesterol Direct HDL Cholesterol 25-OH Vitamin D Total PTH Intact Urine pH Urine WBC (Auto) Urine Creatinine Urine Total Protein Fluid Total Protein Vancomycin Trough Rheumatoid Factor Complement C4 Miscellaneous Test Crossmatch See Detail 01/08/17 01/08/17 01/08/17 10:37 11:33 15:15 WBC RBC Hgb Hct MCV MCH MCHC RDW Plt Count Lymph % (Auto) [place] % (Auto) Lymph # [place] # Baso # Seg Neutrophils % Seg Neuts % (Manual) Lymphocytes % (Manual) Monocytes % (Manual) Eosinophils % (Manual) Basophils % (Manual) Nucleated RBC % Seg Neutrophils # Seg Neutrophils # Man Lymphocytes # (Manual) Monocytes # (Manual) Eosinophils # (Manual) Basophils # (Manual) PT INR Fibrinogen dRVVT Confirm Interp Factor V Activity POC ABG pH POC ABG pCO2 POC ABG pO2 ABG pO2 ABG HCO3 ABG Base Excess ABG Hemoglobin Oxyhemoglobin Sodium Potassium Chloride Carbon Dioxide BUN Creatinine Glucose POC Glucose 157 H Lactic Acid 9.70 H* 9.10 H* Calcium Ionized Calcium Phosphorus Magnesium Direct Bilirubin AST ALT Alkaline Phosphatase Lactate Dehydrogenase Troponin T C-Reactive Protein Total Protein Albumin Prealbumin Triglycerides Cholesterol LDL Cholesterol Direct HDL Cholesterol 25-OH Vitamin D Total PTH Intact Urine pH Urine WBC (Auto) Urine Creatinine Urine Total Protein Fluid Total Protein Vancomycin Trough Rheumatoid Factor Complement C4 Miscellaneous Test Crossmatch 01/08/17 01/08/17 01/09/17 17:19 23:12 04:40 WBC RBC Hgb Hct MCV MCH MCHC RDW Plt Count Lymph % (Auto) [place] % (Auto) Lymph # [place] # Baso # Seg Neutrophils % Seg Neuts % (Manual) Lymphocytes % (Manual) Monocytes % (Manual) Eosinophils % (Manual) Basophils % (Manual) Nucleated RBC % Seg Neutrophils # Seg Neutrophils # Man Lymphocytes # (Manual) Monocytes # (Manual) Eosinophils # (Manual) Basophils # (Manual) PT INR Fibrinogen dRVVT Confirm Interp Factor V Activity POC ABG pH POC ABG pCO2 POC ABG pO2 ABG pO2 ABG HCO3 ABG Base Excess ABG Hemoglobin Oxyhemoglobin Sodium 147 H Potassium Chloride Carbon Dioxide BUN 82 H Creatinine 1.8 H Glucose 137 H POC Glucose 164 H 157 H Lactic Acid Calcium Ionized Calcium Phosphorus Magnesium Direct Bilirubin AST ALT Alkaline Phosphatase Lactate Dehydrogenase Troponin T C-Reactive Protein Total Protein Albumin Prealbumin Triglycerides Cholesterol LDL Cholesterol Direct HDL Cholesterol 25-OH Vitamin D Total PTH Intact Urine pH Urine WBC (Auto) Urine Creatinine Urine Total Protein Fluid Total Protein Vancomycin Trough Rheumatoid Factor Complement C4 Miscellaneous Test Crossmatch 01/09/17 01/09/17 01/09/17 05:42 08:22 10:57 WBC RBC Hgb Hct MCV MCH MCHC RDW Plt Count Lymph % (Auto) [place] % (Auto) Lymph # [place] # Baso # Seg Neutrophils % Seg Neuts % (Manual) Lymphocytes % (Manual) Monocytes % (Manual) Eosinophils % (Manual) Basophils % (Manual) Nucleated RBC % Seg Neutrophils # Seg Neutrophils # Man Lymphocytes # (Manual) Monocytes # (Manual) Eosinophils # (Manual) Basophils # (Manual) PT INR Fibrinogen dRVVT Confirm Interp Factor V Activity POC ABG pH POC ABG pCO2 POC ABG pO2 ABG pO2 ABG HCO3 ABG Base Excess ABG Hemoglobin Oxyhemoglobin Sodium Potassium Chloride Carbon Dioxide BUN Creatinine Glucose POC Glucose 156 H 122 H Lactic Acid 2.30 H* Calcium Ionized Calcium Phosphorus Magnesium Direct Bilirubin AST ALT Alkaline Phosphatase Lactate Dehydrogenase Troponin T C-Reactive Protein Total Protein Albumin Prealbumin Triglycerides Cholesterol LDL Cholesterol Direct HDL Cholesterol 25-OH Vitamin D Total PTH Intact Urine pH Urine WBC (Auto) Urine Creatinine Urine Total Protein Fluid Total Protein Vancomycin Trough Rheumatoid Factor Complement C4 Miscellaneous Test Crossmatch 01/09/17 01/09/17 01/09/17 13:30 17:14 18:45 WBC RBC Hgb Hct MCV MCH MCHC RDW Plt Count Lymph % (Auto) [place] % (Auto) Lymph # [place] # Baso # Seg Neutrophils % Seg Neuts % (Manual) Lymphocytes % (Manual) Monocytes % (Manual) Eosinophils % (Manual) Basophils % (Manual) Nucleated RBC % Seg Neutrophils # Seg Neutrophils # Man Lymphocytes # (Manual) Monocytes # (Manual) Eosinophils # (Manual) Basophils # (Manual) PT INR Fibrinogen dRVVT Confirm Interp Factor V Activity POC ABG pH POC ABG pCO2 POC ABG pO2 ABG pO2 ABG HCO3 ABG Base Excess ABG Hemoglobin Oxyhemoglobin Sodium Potassium Chloride Carbon Dioxide BUN Creatinine Glucose POC Glucose 127 H Lactic Acid Calcium Ionized Calcium Phosphorus Magnesium Direct Bilirubin AST ALT Alkaline Phosphatase Lactate Dehydrogenase Troponin T C-Reactive Protein 24.70 H Total Protein Albumin Prealbumin Triglycerides Cholesterol LDL Cholesterol Direct HDL Cholesterol 25-OH Vitamin D Total PTH Intact Urine pH Urine WBC (Auto) Urine Creatinine Urine Total Protein Fluid Total Protein Vancomycin Trough Rheumatoid Factor Complement C4 Miscellaneous Test Flexitest 1 H Crossmatch 01/10/17 01/10/17 01/10/17 01:21 04:00 04:00 WBC 18.1 H RBC 3.22 L Hgb 8.8 L Hct 27.0 L D MCV MCH 27 L MCHC RDW 17.0 H Plt Count Lymph % (Auto) [place] % (Auto) Lymph # [place] # Baso # Seg Neutrophils % Seg Neuts % (Manual) Lymphocytes % (Manual) Monocytes % (Manual) Eosinophils % (Manual) Basophils % (Manual) Nucleated RBC % Seg Neutrophils # Seg Neutrophils # Man Lymphocytes # (Manual) Monocytes # (Manual) Eosinophils # (Manual) Basophils # (Manual) PT INR Fibrinogen dRVVT Confirm Interp Factor V Activity POC ABG pH POC ABG pCO2 POC ABG pO2 ABG pO2 ABG HCO3 ABG Base Excess ABG Hemoglobin Oxyhemoglobin Sodium Potassium Chloride Carbon Dioxide BUN 59 H Creatinine 1.3 H Glucose 122 H POC Glucose 160 H Lactic Acid Calcium Ionized Calcium Phosphorus Magnesium Direct Bilirubin AST ALT Alkaline Phosphatase Lactate Dehydrogenase Troponin T C-Reactive Protein Total Protein Albumin Prealbumin Triglycerides Cholesterol LDL Cholesterol Direct HDL Cholesterol 25-OH Vitamin D Total PTH Intact Urine pH Urine WBC (Auto) Urine Creatinine Urine Total Protein Fluid Total Protein Vancomycin Trough Rheumatoid Factor Complement C4 Miscellaneous Test Crossmatch 01/10/17 01/10/17 01/10/17 05:36 12:14 17:55 WBC RBC Hgb Hct MCV MCH MCHC RDW Plt Count Lymph % (Auto) [place] % (Auto) Lymph # [place] # Baso # Seg Neutrophils % Seg Neuts % (Manual) Lymphocytes % (Manual) Monocytes % (Manual) Eosinophils % (Manual) Basophils % (Manual) Nucleated RBC % Seg Neutrophils # Seg Neutrophils # Man Lymphocytes # (Manual) Monocytes # (Manual) Eosinophils # (Manual) Basophils # (Manual) PT INR Fibrinogen dRVVT Confirm Interp Factor V Activity POC ABG pH POC ABG pCO2 POC ABG pO2 ABG pO2 ABG HCO3 ABG Base Excess ABG Hemoglobin Oxyhemoglobin Sodium Potassium Chloride Carbon Dioxide BUN Creatinine Glucose POC Glucose 163 H 120 H 144 H Lactic Acid Calcium Ionized Calcium Phosphorus Magnesium Direct Bilirubin AST ALT Alkaline Phosphatase Lactate Dehydrogenase Troponin T C-Reactive Protein Total Protein Albumin Prealbumin Triglycerides Cholesterol LDL Cholesterol Direct HDL Cholesterol 25-OH Vitamin D Total PTH Intact Urine pH Urine WBC (Auto) Urine Creatinine Urine Total Protein Fluid Total Protein Vancomycin Trough Rheumatoid Factor Complement C4 Miscellaneous Test Crossmatch 01/11/17 01/11/17 01/11/17 00:09 04:00 04:00 WBC 15.8 H RBC 3.04 L Hgb 8.2 L Hct 25.5 L MCV MCH 27 L MCHC RDW 17.3 H Plt Count Lymph % (Auto) [place] % (Auto) Lymph # [place] # Baso # Seg Neutrophils % Seg Neuts % (Manual) Lymphocytes % (Manual) Monocytes % (Manual) Eosinophils % (Manual) Basophils % (Manual) Nucleated RBC % Seg Neutrophils # Seg Neutrophils # Man Lymphocytes # (Manual) Monocytes # (Manual) Eosinophils # (Manual) Basophils # (Manual) PT INR Fibrinogen dRVVT Confirm Interp Factor V Activity POC ABG pH POC ABG pCO2 POC ABG pO2 ABG pO2 ABG HCO3 ABG Base Excess ABG Hemoglobin Oxyhemoglobin Sodium Potassium Chloride Carbon Dioxide BUN 78 H Creatinine 1.6 H Glucose 109 H POC Glucose 122 H Lactic Acid Calcium Ionized Calcium Phosphorus Magnesium Direct Bilirubin AST ALT Alkaline Phosphatase Lactate Dehydrogenase Troponin T C-Reactive Protein Total Protein Albumin Prealbumin Triglycerides Cholesterol LDL Cholesterol Direct HDL Cholesterol 25-OH Vitamin D Total PTH Intact Urine pH Urine WBC (Auto) Urine Creatinine Urine Total Protein Fluid Total Protein Vancomycin Trough Rheumatoid Factor Complement C4 Miscellaneous Test Crossmatch 01/11/17 01/11/17 01/11/17 12:46 18:23 23:42 WBC RBC Hgb Hct MCV MCH MCHC RDW Plt Count Lymph % (Auto) [place] % (Auto) Lymph # [place] # Baso # Seg Neutrophils % Seg Neuts % (Manual) Lymphocytes % (Manual) Monocytes % (Manual) Eosinophils % (Manual) Basophils % (Manual) Nucleated RBC % Seg Neutrophils # Seg Neutrophils # Man Lymphocytes # (Manual) Monocytes # (Manual) Eosinophils # (Manual) Basophils # (Manual) PT INR Fibrinogen dRVVT Confirm Interp Factor V Activity POC ABG pH POC ABG pCO2 POC ABG pO2 ABG pO2 ABG HCO3 ABG Base Excess ABG Hemoglobin Oxyhemoglobin Sodium Potassium Chloride Carbon Dioxide BUN Creatinine Glucose POC Glucose 148 H 125 H 124 H Lactic Acid Calcium Ionized Calcium Phosphorus Magnesium Direct Bilirubin AST ALT Alkaline Phosphatase Lactate Dehydrogenase Troponin T C-Reactive Protein Total Protein Albumin Prealbumin Triglycerides Cholesterol LDL Cholesterol Direct HDL Cholesterol 25-OH Vitamin D Total PTH Intact Urine pH Urine WBC (Auto) Urine Creatinine Urine Total Protein Fluid Total Protein Vancomycin Trough Rheumatoid Factor Complement C4 Miscellaneous Test Crossmatch 01/12/17 01/12/17 01/12/17 04:30 04:30 05:47 WBC 15.8 H RBC 3.31 L Hgb 8.9 L Hct 27.9 L MCV MCH 27 L MCHC RDW 17.4 H Plt Count Lymph % (Auto) [place] % (Auto) Lymph # [place] # Baso # Seg Neutrophils % Seg Neuts % (Manual) Lymphocytes % (Manual) Monocytes % (Manual) Eosinophils % (Manual) Basophils % (Manual) Nucleated RBC % Seg Neutrophils # Seg Neutrophils # Man Lymphocytes # (Manual) Monocytes # (Manual) Eosinophils # (Manual) Basophils # (Manual) PT INR Fibrinogen dRVVT Confirm Interp Factor V Activity POC ABG pH POC ABG pCO2 POC ABG pO2 ABG pO2 ABG HCO3 ABG Base Excess ABG Hemoglobin Oxyhemoglobin Sodium Potassium Chloride Carbon Dioxide BUN 57 H Creatinine Glucose 121 H POC Glucose 110 H Lactic Acid Calcium Ionized Calcium Phosphorus 2.10 L Magnesium Direct Bilirubin AST ALT Alkaline Phosphatase Lactate Dehydrogenase Troponin T C-Reactive Protein Total Protein Albumin Prealbumin Triglycerides Cholesterol LDL Cholesterol Direct HDL Cholesterol 25-OH Vitamin D Total PTH Intact Urine pH Urine WBC (Auto) Urine Creatinine Urine Total Protein Fluid Total Protein Vancomycin Trough Rheumatoid Factor Complement C4 Miscellaneous Test Crossmatch 01/12/17 01/12/17 01/12/17 11:35 17:45 23:14 WBC RBC Hgb Hct MCV MCH MCHC RDW Plt Count Lymph % (Auto) [place] % (Auto) Lymph # [place] # Baso # Seg Neutrophils % Seg Neuts % (Manual) Lymphocytes % (Manual) Monocytes % (Manual) Eosinophils % (Manual) Basophils % (Manual) Nucleated RBC % Seg Neutrophils # Seg Neutrophils # Man Lymphocytes # (Manual) Monocytes # (Manual) Eosinophils # (Manual) Basophils # (Manual) PT INR Fibrinogen dRVVT Confirm Interp Factor V Activity POC ABG pH POC ABG pCO2 POC ABG pO2 ABG pO2 ABG HCO3 ABG Base Excess ABG Hemoglobin Oxyhemoglobin Sodium Potassium Chloride Carbon Dioxide BUN Creatinine Glucose POC Glucose 146 H 117 H 123 H Lactic Acid Calcium Ionized Calcium Phosphorus Magnesium Direct Bilirubin AST ALT Alkaline Phosphatase Lactate Dehydrogenase Troponin T C-Reactive Protein Total Protein Albumin Prealbumin Triglycerides Cholesterol LDL Cholesterol Direct HDL Cholesterol 25-OH Vitamin D Total PTH Intact Urine pH Urine WBC (Auto) Urine Creatinine Urine Total Protein Fluid Total Protein Vancomycin Trough Rheumatoid Factor Complement C4 Miscellaneous Test Crossmatch 01/13/17 01/13/17 01/13/17 05:32 06:00 12:10 WBC RBC Hgb Hct MCV MCH MCHC RDW Plt Count Lymph % (Auto) [place] % (Auto) Lymph # [place] # Baso # Seg Neutrophils % Seg Neuts % (Manual) Lymphocytes % (Manual) Monocytes % (Manual) Eosinophils % (Manual) Basophils % (Manual) Nucleated RBC % Seg Neutrophils # Seg Neutrophils # Man Lymphocytes # (Manual) Monocytes # (Manual) Eosinophils # (Manual) Basophils # (Manual) PT INR Fibrinogen dRVVT Confirm Interp Factor V Activity POC ABG pH POC ABG pCO2 POC ABG pO2 ABG pO2 ABG HCO3 ABG Base Excess ABG Hemoglobin Oxyhemoglobin Sodium Potassium Chloride Carbon Dioxide BUN 80 H Creatinine 1.4 H Glucose 106 H POC Glucose 106 H Lactic Acid Calcium Ionized Calcium Phosphorus Magnesium Direct Bilirubin AST ALT Alkaline Phosphatase Lactate Dehydrogenase Troponin T C-Reactive Protein Total Protein Albumin Prealbumin Triglycerides Cholesterol LDL Cholesterol Direct HDL Cholesterol 25-OH Vitamin D Total PTH Intact Urine pH Urine WBC (Auto) Urine Creatinine Urine Total Protein Fluid Total Protein 3.0 L Vancomycin Trough Rheumatoid Factor Complement C4 Miscellaneous Test Crossmatch 01/13/17 01/13/17 01/13/17 12:17 15:50 17:30 WBC RBC Hgb Hct MCV MCH MCHC RDW Plt Count Lymph % (Auto) [place] % (Auto) Lymph # [place] # Baso # Seg Neutrophils % Seg Neuts % (Manual) Lymphocytes % (Manual) Monocytes % (Manual) Eosinophils % (Manual) Basophils % (Manual) Nucleated RBC % Seg Neutrophils # Seg Neutrophils # Man Lymphocytes # (Manual) Monocytes # (Manual) Eosinophils # (Manual) Basophils # (Manual) PT 15.4 H INR 1.16 H Fibrinogen dRVVT Confirm Interp Factor V Activity POC ABG pH POC ABG pCO2 POC ABG pO2 ABG pO2 ABG HCO3 ABG Base Excess ABG Hemoglobin Oxyhemoglobin Sodium Potassium Chloride Carbon Dioxide BUN Creatinine Glucose POC Glucose 168 H 110 H Lactic Acid Calcium Ionized Calcium Phosphorus Magnesium Direct Bilirubin AST ALT Alkaline Phosphatase Lactate Dehydrogenase Troponin T C-Reactive Protein Total Protein Albumin Prealbumin Triglycerides Cholesterol LDL Cholesterol Direct HDL Cholesterol 25-OH Vitamin D Total PTH Intact Urine pH Urine WBC (Auto) Urine Creatinine Urine Total Protein Fluid Total Protein Vancomycin Trough Rheumatoid Factor Complement C4 Miscellaneous Test Crossmatch 01/13/17 01/14/17 01/14/17 23:42 05:24 05:30 WBC RBC Hgb Hct MCV MCH MCHC RDW Plt Count Lymph % (Auto) [place] % (Auto) Lymph # [place] # Baso # Seg Neutrophils % Seg Neuts % (Manual) Lymphocytes % (Manual) Monocytes % (Manual) Eosinophils % (Manual) Basophils % (Manual) Nucleated RBC % Seg Neutrophils # Seg Neutrophils # Man Lymphocytes # (Manual) Monocytes # (Manual) Eosinophils # (Manual) Basophils # (Manual) PT INR Fibrinogen dRVVT Confirm Interp Factor V Activity POC ABG pH POC ABG pCO2 POC ABG pO2 ABG pO2 ABG HCO3 ABG Base Excess ABG Hemoglobin Oxyhemoglobin Sodium Potassium Chloride Carbon Dioxide BUN 58 H Creatinine Glucose 114 H POC Glucose 155 H 121 H Lactic Acid Calcium Ionized Calcium Phosphorus Magnesium Direct Bilirubin AST ALT Alkaline Phosphatase Lactate Dehydrogenase Troponin T C-Reactive Protein Total Protein Albumin Prealbumin Triglycerides Cholesterol LDL Cholesterol Direct HDL Cholesterol 25-OH Vitamin D Total PTH Intact Urine pH Urine WBC (Auto) Urine Creatinine Urine Total Protein Fluid Total Protein Vancomycin Trough Rheumatoid Factor Complement C4 Miscellaneous Test Crossmatch 01/14/17 01/14/17 01/15/17 12:48 17:36 00:15 WBC RBC Hgb Hct MCV MCH MCHC RDW Plt Count Lymph % (Auto) [place] % (Auto) Lymph # [place] # Baso # Seg Neutrophils % Seg Neuts % (Manual) Lymphocytes % (Manual) Monocytes % (Manual) Eosinophils % (Manual) Basophils % (Manual) Nucleated RBC % Seg Neutrophils # Seg Neutrophils # Man Lymphocytes # (Manual) Monocytes # (Manual) Eosinophils # (Manual) Basophils # (Manual) PT INR Fibrinogen dRVVT Confirm Interp Factor V Activity POC ABG pH POC ABG pCO2 POC ABG pO2 ABG pO2 ABG HCO3 ABG Base Excess ABG Hemoglobin Oxyhemoglobin Sodium Potassium Chloride Carbon Dioxide BUN Creatinine Glucose POC Glucose 130 H 135 H 132 H Lactic Acid Calcium Ionized Calcium Phosphorus Magnesium Direct Bilirubin AST ALT Alkaline Phosphatase Lactate Dehydrogenase Troponin T C-Reactive Protein Total Protein Albumin Prealbumin Triglycerides Cholesterol LDL Cholesterol Direct HDL Cholesterol 25-OH Vitamin D Total PTH Intact Urine pH Urine WBC (Auto) Urine Creatinine Urine Total Protein Fluid Total Protein Vancomycin Trough Rheumatoid Factor Complement C4 Miscellaneous Test Crossmatch 01/15/17 01/15/17 01/15/17 05:01 11:55 12:45 WBC 16.2 H RBC 3.00 L Hgb 8.1 L Hct 25.4 L MCV MCH 27 L MCHC RDW 17.6 H Plt Count Lymph % (Auto) 11.7 L [place] % (Auto) 7.8 H Lymph # [place] # 1.3 H Baso # Seg Neutrophils % 80.1 H Seg Neuts % (Manual) Lymphocytes % (Manual) Monocytes % (Manual) Eosinophils % (Manual) Basophils % (Manual) Nucleated RBC % Seg Neutrophils # 13.0 H Seg Neutrophils # Man Lymphocytes # (Manual) Monocytes # (Manual) Eosinophils # (Manual) Basophils # (Manual) PT INR Fibrinogen dRVVT Confirm Interp Factor V Activity POC ABG pH POC ABG pCO2 POC ABG pO2 ABG pO2 ABG HCO3 ABG Base Excess ABG Hemoglobin Oxyhemoglobin Sodium Potassium Chloride Carbon Dioxide BUN Creatinine Glucose POC Glucose 126 H 125 H Lactic Acid Calcium Ionized Calcium Phosphorus Magnesium Direct Bilirubin AST ALT Alkaline Phosphatase Lactate Dehydrogenase Troponin T C-Reactive Protein Total Protein Albumin Prealbumin Triglycerides Cholesterol LDL Cholesterol Direct HDL Cholesterol 25-OH Vitamin D Total PTH Intact Urine pH Urine WBC (Auto) Urine Creatinine Urine Total Protein Fluid Total Protein Vancomycin Trough Rheumatoid Factor Complement C4 Miscellaneous Test Crossmatch 01/15/17 01/15/17 01/15/17 12:45 17:31 23:39 WBC RBC Hgb Hct MCV MCH MCHC RDW Plt Count Lymph % (Auto) [place] % (Auto) Lymph # [place] # Baso # Seg Neutrophils % Seg Neuts % (Manual) Lymphocytes % (Manual) Monocytes % (Manual) Eosinophils % (Manual) Basophils % (Manual) Nucleated RBC % Seg Neutrophils # Seg Neutrophils # Man Lymphocytes # (Manual) Monocytes # (Manual) Eosinophils # (Manual) Basophils # (Manual) PT INR Fibrinogen dRVVT Confirm Interp Factor V Activity POC ABG pH POC ABG pCO2 POC ABG pO2 ABG pO2 ABG HCO3 ABG Base Excess ABG Hemoglobin Oxyhemoglobin Sodium 136 L Potassium Chloride Carbon Dioxide BUN 87 H Creatinine 1.7 H Glucose 108 H POC Glucose 129 H 112 H Lactic Acid Calcium Ionized Calcium Phosphorus Magnesium Direct Bilirubin AST ALT Alkaline Phosphatase Lactate Dehydrogenase Troponin T C-Reactive Protein Total Protein Albumin Prealbumin Triglycerides Cholesterol LDL Cholesterol Direct HDL Cholesterol 25-OH Vitamin D Total PTH Intact Urine pH Urine WBC (Auto) Urine Creatinine Urine Total Protein Fluid Total Protein Vancomycin Trough Rheumatoid Factor Complement C4 Miscellaneous Test Crossmatch 01/16/17 01/16/17 01/16/17 05:23 11:42 12:32 WBC RBC Hgb Hct MCV MCH MCHC RDW Plt Count Lymph % (Auto) [place] % (Auto) Lymph # [place] # Baso # Seg Neutrophils % Seg Neuts % (Manual) Lymphocytes % (Manual) Monocytes % (Manual) Eosinophils % (Manual) Basophils % (Manual) Nucleated RBC % Seg Neutrophils # Seg Neutrophils # Man Lymphocytes # (Manual) Monocytes # (Manual) Eosinophils # (Manual) Basophils # (Manual) PT INR Fibrinogen dRVVT Confirm Interp Factor V Activity POC ABG pH 7.499 H POC ABG pCO2 30.9 L POC ABG pO2 51 L ABG pO2 ABG HCO3 ABG Base Excess ABG Hemoglobin Oxyhemoglobin Sodium Potassium Chloride Carbon Dioxide BUN Creatinine Glucose POC Glucose 118 H 133 H Lactic Acid Calcium Ionized Calcium Phosphorus Magnesium Direct Bilirubin AST ALT Alkaline Phosphatase Lactate Dehydrogenase Troponin T C-Reactive Protein Total Protein Albumin Prealbumin Triglycerides Cholesterol LDL Cholesterol Direct HDL Cholesterol 25-OH Vitamin D Total PTH Intact Urine pH Urine WBC (Auto) Urine Creatinine Urine Total Protein Fluid Total Protein Vancomycin Trough Rheumatoid Factor Complement C4 Miscellaneous Test Crossmatch 01/16/17 01/16/17 01/16/17 17:52 23:57 Unknown WBC RBC Hgb Hct MCV MCH MCHC RDW Plt Count Lymph % (Auto) [place] % (Auto) Lymph # [place] # Baso # Seg Neutrophils % Seg Neuts % (Manual) Lymphocytes % (Manual) Monocytes % (Manual) Eosinophils % (Manual) Basophils % (Manual) Nucleated RBC % Seg Neutrophils # Seg Neutrophils # Man Lymphocytes # (Manual) Monocytes # (Manual) Eosinophils # (Manual) Basophils # (Manual) PT INR Fibrinogen dRVVT Confirm Interp Factor V Activity POC ABG pH POC ABG pCO2 POC ABG pO2 ABG pO2 ABG HCO3 ABG Base Excess ABG Hemoglobin Oxyhemoglobin Sodium 135 L Potassium Chloride Carbon Dioxide BUN 101 H Creatinine 1.8 H Glucose 117 H POC Glucose 130 H 143 H Lactic Acid Calcium Ionized Calcium Phosphorus 5.80 H Magnesium Direct Bilirubin AST ALT Alkaline Phosphatase Lactate Dehydrogenase Troponin T C-Reactive Protein Total Protein Albumin Prealbumin Triglycerides Cholesterol LDL Cholesterol Direct HDL Cholesterol 25-OH Vitamin D Total PTH Intact Urine pH Urine WBC (Auto) Urine Creatinine Urine Total Protein Fluid Total Protein Vancomycin Trough Rheumatoid Factor Complement C4 Miscellaneous Test Crossmatch 01/17/17 01/17/17 01/17/17 05:30 05:46 11:49 WBC RBC Hgb Hct MCV MCH MCHC RDW Plt Count Lymph % (Auto) [place] % (Auto) Lymph # [place] # Baso # Seg Neutrophils % Seg Neuts % (Manual) Lymphocytes % (Manual) Monocytes % (Manual) Eosinophils % (Manual) Basophils % (Manual) Nucleated RBC % Seg Neutrophils # Seg Neutrophils # Man Lymphocytes # (Manual) Monocytes # (Manual) Eosinophils # (Manual) Basophils # (Manual) PT INR Fibrinogen dRVVT Confirm Interp Factor V Activity POC ABG pH POC ABG pCO2 POC ABG pO2 ABG pO2 ABG HCO3 ABG Base Excess ABG Hemoglobin Oxyhemoglobin Sodium 134 L Potassium Chloride 95.8 L Carbon Dioxide BUN 66 H Creatinine 1.3 H Glucose 138 H POC Glucose 147 H 124 H Lactic Acid Calcium Ionized Calcium Phosphorus Magnesium Direct Bilirubin AST ALT Alkaline Phosphatase 254 H Lactate Dehydrogenase Troponin T C-Reactive Protein Total Protein Albumin 1.3 L Prealbumin Triglycerides Cholesterol LDL Cholesterol Direct HDL Cholesterol 25-OH Vitamin D Total PTH Intact Urine pH Urine WBC (Auto) Urine Creatinine Urine Total Protein Fluid Total Protein Vancomycin Trough Rheumatoid Factor Complement C4 Miscellaneous Test Crossmatch 01/17/17 01/17/17 01/18/17 17:30 23:41 05:15 WBC RBC Hgb Hct MCV MCH MCHC RDW Plt Count Lymph % (Auto) [place] % (Auto) Lymph # [place] # Baso # Seg Neutrophils % Seg Neuts % (Manual) Lymphocytes % (Manual) Monocytes % (Manual) Eosinophils % (Manual) Basophils % (Manual) Nucleated RBC % Seg Neutrophils # Seg Neutrophils # Man Lymphocytes # (Manual) Monocytes # (Manual) Eosinophils # (Manual) Basophils # (Manual) PT INR Fibrinogen dRVVT Confirm Interp Factor V Activity POC ABG pH POC ABG pCO2 POC ABG pO2 ABG pO2 ABG HCO3 ABG Base Excess ABG Hemoglobin Oxyhemoglobin Sodium Potassium Chloride Carbon Dioxide BUN 89 H Creatinine 1.7 H Glucose 118 H POC Glucose 137 H 119 H Lactic Acid Calcium Ionized Calcium Phosphorus Magnesium Direct Bilirubin AST ALT Alkaline Phosphatase Lactate Dehydrogenase Troponin T C-Reactive Protein Total Protein Albumin Prealbumin Triglycerides Cholesterol LDL Cholesterol Direct HDL Cholesterol 25-OH Vitamin D Total PTH Intact Urine pH Urine WBC (Auto) Urine Creatinine Urine Total Protein Fluid Total Protein Vancomycin Trough Rheumatoid Factor Complement C4 Miscellaneous Test Crossmatch 01/18/17 01/18/17 01/18/17 05:19 12:16 18:11 WBC RBC Hgb Hct MCV MCH MCHC RDW Plt Count Lymph % (Auto) [place] % (Auto) Lymph # [place] # Baso # Seg Neutrophils % Seg Neuts % (Manual) Lymphocytes % (Manual) Monocytes % (Manual) Eosinophils % (Manual) Basophils % (Manual) Nucleated RBC % Seg Neutrophils # Seg Neutrophils # Man Lymphocytes # (Manual) Monocytes # (Manual) Eosinophils # (Manual) Basophils # (Manual) PT INR Fibrinogen dRVVT Confirm Interp Factor V Activity POC ABG pH POC ABG pCO2 POC ABG pO2 ABG pO2 ABG HCO3 ABG Base Excess ABG Hemoglobin Oxyhemoglobin Sodium Potassium Chloride Carbon Dioxide BUN Creatinine Glucose POC Glucose 134 H 188 H 113 H Lactic Acid Calcium Ionized Calcium Phosphorus Magnesium Direct Bilirubin AST ALT Alkaline Phosphatase Lactate Dehydrogenase Troponin T C-Reactive Protein Total Protein Albumin Prealbumin Triglycerides Cholesterol LDL Cholesterol Direct HDL Cholesterol 25-OH Vitamin D Total PTH Intact Urine pH Urine WBC (Auto) Urine Creatinine Urine Total Protein Fluid Total Protein Vancomycin Trough Rheumatoid Factor Complement C4 Miscellaneous Test Crossmatch 01/19/17 01/19/17 01/19/17 00:00 05:30 05:36 WBC RBC Hgb Hct MCV MCH MCHC RDW Plt Count Lymph % (Auto) [place] % (Auto) Lymph # [place] # Baso # Seg Neutrophils % Seg Neuts % (Manual) Lymphocytes % (Manual) Monocytes % (Manual) Eosinophils % (Manual) Basophils % (Manual) Nucleated RBC % Seg Neutrophils # Seg Neutrophils # Man Lymphocytes # (Manual) Monocytes # (Manual) Eosinophils # (Manual) Basophils # (Manual) PT INR Fibrinogen dRVVT Confirm Interp Factor V Activity POC ABG pH POC ABG pCO2 POC ABG pO2 ABG pO2 ABG HCO3 ABG Base Excess ABG Hemoglobin Oxyhemoglobin Sodium Potassium Chloride Carbon Dioxide BUN 70 H Creatinine 1.5 H Glucose 121 H POC Glucose 137 H 155 H Lactic Acid Calcium Ionized Calcium Phosphorus 2.10 L D Magnesium Direct Bilirubin AST ALT Alkaline Phosphatase Lactate Dehydrogenase Troponin T C-Reactive Protein Total Protein Albumin Prealbumin Triglycerides Cholesterol LDL Cholesterol Direct HDL Cholesterol 25-OH Vitamin D Total PTH Intact Urine pH Urine WBC (Auto) Urine Creatinine Urine Total Protein Fluid Total Protein Vancomycin Trough Rheumatoid Factor Complement C4 Miscellaneous Test Crossmatch 01/19/17 01/19/17 01/19/17 11:59 15:32 17:57 WBC RBC Hgb Hct MCV MCH MCHC RDW Plt Count Lymph % (Auto) [place] % (Auto) Lymph # [place] # Baso # Seg Neutrophils % Seg Neuts % (Manual) Lymphocytes % (Manual) Monocytes % (Manual) Eosinophils % (Manual) Basophils % (Manual) Nucleated RBC % Seg Neutrophils # Seg Neutrophils # Man Lymphocytes # (Manual) Monocytes # (Manual) Eosinophils # (Manual) Basophils # (Manual) PT INR Fibrinogen dRVVT Confirm Interp Factor V Activity POC ABG pH POC ABG pCO2 33.1 L POC ABG pO2 76 L ABG pO2 ABG HCO3 ABG Base Excess ABG Hemoglobin Oxyhemoglobin Sodium Potassium Chloride Carbon Dioxide BUN Creatinine Glucose POC Glucose 156 H 129 H Lactic Acid Calcium Ionized Calcium Phosphorus Magnesium Direct Bilirubin AST ALT Alkaline Phosphatase Lactate Dehydrogenase Troponin T C-Reactive Protein Total Protein Albumin Prealbumin Triglycerides Cholesterol LDL Cholesterol Direct HDL Cholesterol 25-OH Vitamin D Total PTH Intact Urine pH Urine WBC (Auto) Urine Creatinine Urine Total Protein Fluid Total Protein Vancomycin Trough Rheumatoid Factor Complement C4 Miscellaneous Test Crossmatch 01/19/17 01/20/17 01/20/17 23:49 04:00 05:21 WBC RBC Hgb Hct MCV MCH MCHC RDW Plt Count Lymph % (Auto) [place] % (Auto) Lymph # [place] # Baso # Seg Neutrophils % Seg Neuts % (Manual) Lymphocytes % (Manual) Monocytes % (Manual) Eosinophils % (Manual) Basophils % (Manual) Nucleated RBC % Seg Neutrophils # Seg Neutrophils # Man Lymphocytes # (Manual) Monocytes # (Manual) Eosinophils # (Manual) Basophils # (Manual) PT INR Fibrinogen dRVVT Confirm Interp Factor V Activity POC ABG pH POC ABG pCO2 POC ABG pO2 ABG pO2 ABG HCO3 ABG Base Excess ABG Hemoglobin Oxyhemoglobin Sodium Potassium Chloride Carbon Dioxide BUN 96 H Creatinine 1.9 H Glucose 106 H POC Glucose 125 H 130 H Lactic Acid Calcium Ionized Calcium Phosphorus 2.40 L Magnesium Direct Bilirubin AST ALT Alkaline Phosphatase Lactate Dehydrogenase Troponin T C-Reactive Protein Total Protein Albumin Prealbumin Triglycerides Cholesterol LDL Cholesterol Direct HDL Cholesterol 25-OH Vitamin D Total PTH Intact Urine pH Urine WBC (Auto) Urine Creatinine Urine Total Protein Fluid Total Protein Vancomycin Trough Rheumatoid Factor Complement C4 Miscellaneous Test Crossmatch 01/20/17 01/20/17 01/20/17 11:58 12:17 17:26 WBC RBC Hgb Hct MCV MCH MCHC RDW Plt Count Lymph % (Auto) [place] % (Auto) Lymph # [place] # Baso # Seg Neutrophils % Seg Neuts % (Manual) Lymphocytes % (Manual) Monocytes % (Manual) Eosinophils % (Manual) Basophils % (Manual) Nucleated RBC % Seg Neutrophils # Seg Neutrophils # Man Lymphocytes # (Manual) Monocytes # (Manual) Eosinophils # (Manual) Basophils # (Manual) PT INR Fibrinogen dRVVT Confirm Interp Factor V Activity POC ABG pH POC ABG pCO2 POC ABG pO2 70 L ABG pO2 ABG HCO3 ABG Base Excess ABG Hemoglobin Oxyhemoglobin Sodium Potassium Chloride Carbon Dioxide BUN Creatinine Glucose POC Glucose 118 H 154 H Lactic Acid Calcium Ionized Calcium Phosphorus Magnesium Direct Bilirubin AST ALT Alkaline Phosphatase Lactate Dehydrogenase Troponin T C-Reactive Protein Total Protein Albumin Prealbumin Triglycerides Cholesterol LDL Cholesterol Direct HDL Cholesterol 25-OH Vitamin D Total PTH Intact Urine pH Urine WBC (Auto) Urine Creatinine Urine Total Protein Fluid Total Protein Vancomycin Trough Rheumatoid Factor Complement C4 Miscellaneous Test Crossmatch 01/21/17 01/21/17 01/21/17 04:00 04:56 11:46 WBC RBC Hgb Hct MCV MCH MCHC RDW Plt Count Lymph % (Auto) [place] % (Auto) Lymph # [place] # Baso # Seg Neutrophils % Seg Neuts % (Manual) Lymphocytes % (Manual) Monocytes % (Manual) Eosinophils % (Manual) Basophils % (Manual) Nucleated RBC % Seg Neutrophils # Seg Neutrophils # Man Lymphocytes # (Manual) Monocytes # (Manual) Eosinophils # (Manual) Basophils # (Manual) PT INR Fibrinogen dRVVT Confirm Interp Factor V Activity POC ABG pH POC ABG pCO2 POC ABG pO2 ABG pO2 ABG HCO3 ABG Base Excess ABG Hemoglobin Oxyhemoglobin Sodium Potassium 3.5 L Chloride 97.4 L Carbon Dioxide BUN 66 H Creatinine 1.4 H Glucose POC Glucose 116 H 106 H Lactic Acid Calcium Ionized Calcium Phosphorus 2.10 L Magnesium Direct Bilirubin AST ALT Alkaline Phosphatase Lactate Dehydrogenase Troponin T C-Reactive Protein Total Protein Albumin Prealbumin Triglycerides Cholesterol LDL Cholesterol Direct HDL Cholesterol 25-OH Vitamin D Total PTH Intact Urine pH Urine WBC (Auto) Urine Creatinine Urine Total Protein Fluid Total Protein Vancomycin Trough Rheumatoid Factor Complement C4 Miscellaneous Test Crossmatch 01/21/17 01/21/17 01/22/17 17:25 23:49 05:35 WBC RBC Hgb Hct MCV MCH MCHC RDW Plt Count Lymph % (Auto) [place] % (Auto) Lymph # [place] # Baso # Seg Neutrophils % Seg Neuts % (Manual) Lymphocytes % (Manual) Monocytes % (Manual) Eosinophils % (Manual) Basophils % (Manual) Nucleated RBC % Seg Neutrophils # Seg Neutrophils # Man Lymphocytes # (Manual) Monocytes # (Manual) Eosinophils # (Manual) Basophils # (Manual) PT INR Fibrinogen dRVVT Confirm Interp Factor V Activity POC ABG pH POC ABG pCO2 POC ABG pO2 ABG pO2 ABG HCO3 ABG Base Excess ABG Hemoglobin Oxyhemoglobin Sodium Potassium Chloride Carbon Dioxide BUN Creatinine Glucose POC Glucose 106 H 133 H 107 H Lactic Acid Calcium Ionized Calcium Phosphorus Magnesium Direct Bilirubin AST ALT Alkaline Phosphatase Lactate Dehydrogenase Troponin T C-Reactive Protein Total Protein Albumin Prealbumin Triglycerides Cholesterol LDL Cholesterol Direct HDL Cholesterol 25-OH Vitamin D Total PTH Intact Urine pH Urine WBC (Auto) Urine Creatinine Urine Total Protein Fluid Total Protein Vancomycin Trough Rheumatoid Factor Complement C4 Miscellaneous Test Crossmatch 01/22/17 01/22/17 01/22/17 07:20 07:20 11:31 WBC RBC 2.75 L Hgb 7.5 L Hct 22.7 L MCV MCH 27 L MCHC RDW 17.5 H Plt Count Lymph % (Auto) [place] % (Auto) Lymph # [place] # Baso # Seg Neutrophils % Seg Neuts % (Manual) Lymphocytes % (Manual) Monocytes % (Manual) Eosinophils % (Manual) Basophils % (Manual) Nucleated RBC % Seg Neutrophils # Seg Neutrophils # Man Lymphocytes # (Manual) Monocytes # (Manual) Eosinophils # (Manual) Basophils # (Manual) PT INR Fibrinogen dRVVT Confirm Interp Factor V Activity POC ABG pH POC ABG pCO2 POC ABG pO2 ABG pO2 ABG HCO3 ABG Base Excess ABG Hemoglobin Oxyhemoglobin Sodium Potassium 3.3 L Chloride Carbon Dioxide BUN 42 H Creatinine Glucose 105 H POC Glucose 124 H Lactic Acid Calcium Ionized Calcium Phosphorus 1.70 L Magnesium Direct Bilirubin AST ALT Alkaline Phosphatase Lactate Dehydrogenase Troponin T C-Reactive Protein Total Protein Albumin Prealbumin Triglycerides Cholesterol LDL Cholesterol Direct HDL Cholesterol 25-OH Vitamin D Total PTH Intact Urine pH Urine WBC (Auto) Urine Creatinine Urine Total Protein Fluid Total Protein Vancomycin Trough Rheumatoid Factor Complement C4 Miscellaneous Test Crossmatch 01/22/17 01/22/17 01/23/17 17:16 23:35 05:35 WBC RBC Hgb Hct MCV MCH MCHC RDW Plt Count Lymph % (Auto) [place] % (Auto) Lymph # [place] # Baso # Seg Neutrophils % Seg Neuts % (Manual) Lymphocytes % (Manual) Monocytes % (Manual) Eosinophils % (Manual) Basophils % (Manual) Nucleated RBC % Seg Neutrophils # Seg Neutrophils # Man Lymphocytes # (Manual) Monocytes # (Manual) Eosinophils # (Manual) Basophils # (Manual) PT INR Fibrinogen dRVVT Confirm Interp Factor V Activity POC ABG pH POC ABG pCO2 POC ABG pO2 ABG pO2 ABG HCO3 ABG Base Excess ABG Hemoglobin Oxyhemoglobin Sodium Potassium Chloride Carbon Dioxide BUN Creatinine Glucose POC Glucose 135 H 120 H 111 H Lactic Acid Calcium Ionized Calcium Phosphorus Magnesium Direct Bilirubin AST ALT Alkaline Phosphatase Lactate Dehydrogenase Troponin T C-Reactive Protein Total Protein Albumin Prealbumin Triglycerides Cholesterol LDL Cholesterol Direct HDL Cholesterol 25-OH Vitamin D Total PTH Intact Urine pH Urine WBC (Auto) Urine Creatinine Urine Total Protein Fluid Total Protein Vancomycin Trough Rheumatoid Factor Complement C4 Miscellaneous Test Crossmatch 01/23/17 01/23/17 01/23/17 06:10 17:27 23:44 WBC RBC Hgb Hct MCV MCH MCHC RDW Plt Count Lymph % (Auto) [place] % (Auto) Lymph # [place] # Baso # Seg Neutrophils % Seg Neuts % (Manual) Lymphocytes % (Manual) Monocytes % (Manual) Eosinophils % (Manual) Basophils % (Manual) Nucleated RBC % Seg Neutrophils # Seg Neutrophils # Man Lymphocytes # (Manual) Monocytes # (Manual) Eosinophils # (Manual) Basophils # (Manual) PT INR Fibrinogen dRVVT Confirm Interp Factor V Activity POC ABG pH POC ABG pCO2 POC ABG pO2 ABG pO2 ABG HCO3 ABG Base Excess ABG Hemoglobin Oxyhemoglobin Sodium Potassium 3.3 L Chloride Carbon Dioxide BUN 66 H Creatinine 1.3 H Glucose 109 H POC Glucose 120 H 115 H Lactic Acid Calcium Ionized Calcium Phosphorus 2.20 L D Magnesium Direct Bilirubin AST ALT Alkaline Phosphatase Lactate Dehydrogenase Troponin T C-Reactive Protein Total Protein Albumin Prealbumin Triglycerides Cholesterol LDL Cholesterol Direct HDL Cholesterol 25-OH Vitamin D Total PTH Intact Urine pH Urine WBC (Auto) Urine Creatinine Urine Total Protein Fluid Total Protein Vancomycin Trough Rheumatoid Factor Complement C4 Miscellaneous Test Crossmatch 01/24/17 01/24/17 01/24/17 05:19 05:50 12:19 WBC RBC Hgb Hct MCV MCH MCHC RDW Plt Count Lymph % (Auto) [place] % (Auto) Lymph # [place] # Baso # Seg Neutrophils % Seg Neuts % (Manual) Lymphocytes % (Manual) Monocytes % (Manual) Eosinophils % (Manual) Basophils % (Manual) Nucleated RBC % Seg Neutrophils # Seg Neutrophils # Man Lymphocytes # (Manual) Monocytes # (Manual) Eosinophils # (Manual) Basophils # (Manual) PT INR Fibrinogen dRVVT Confirm Interp Factor V Activity POC ABG pH POC ABG pCO2 POC ABG pO2 ABG pO2 ABG HCO3 ABG Base Excess ABG Hemoglobin Oxyhemoglobin Sodium Potassium Chloride Carbon Dioxide BUN 47 H Creatinine Glucose 117 H POC Glucose 126 H 119 H Lactic Acid Calcium Ionized Calcium Phosphorus 2.30 L Magnesium 1.60 L Direct Bilirubin AST ALT Alkaline Phosphatase Lactate Dehydrogenase Troponin T C-Reactive Protein Total Protein Albumin Prealbumin Triglycerides Cholesterol LDL Cholesterol Direct HDL Cholesterol 25-OH Vitamin D Total PTH Intact Urine pH Urine WBC (Auto) Urine Creatinine Urine Total Protein Fluid Total Protein Vancomycin Trough Rheumatoid Factor Complement C4 Miscellaneous Test Crossmatch 01/24/17 01/25/17 01/25/17 17:08 00:37 04:00 WBC RBC Hgb Hct MCV MCH MCHC RDW Plt Count Lymph % (Auto) [place] % (Auto) Lymph # [place] # Baso # Seg Neutrophils % Seg Neuts % (Manual) Lymphocytes % (Manual) Monocytes % (Manual) Eosinophils % (Manual) Basophils % (Manual) Nucleated RBC % Seg Neutrophils # Seg Neutrophils # Man Lymphocytes # (Manual) Monocytes # (Manual) Eosinophils # (Manual) Basophils # (Manual) PT INR Fibrinogen dRVVT Confirm Interp Factor V Activity POC ABG pH POC ABG pCO2 POC ABG pO2 ABG pO2 ABG HCO3 ABG Base Excess ABG Hemoglobin Oxyhemoglobin Sodium Potassium Chloride Carbon Dioxide BUN 72 H Creatinine 1.3 H Glucose POC Glucose 127 H 110 H Lactic Acid Calcium Ionized Calcium Phosphorus Magnesium Direct Bilirubin AST ALT Alkaline Phosphatase Lactate Dehydrogenase Troponin T C-Reactive Protein Total Protein Albumin Prealbumin Triglycerides Cholesterol LDL Cholesterol Direct HDL Cholesterol 25-OH Vitamin D Total PTH Intact Urine pH Urine WBC (Auto) Urine Creatinine Urine Total Protein Fluid Total Protein Vancomycin Trough Rheumatoid Factor Complement C4 Miscellaneous Test Crossmatch 01/25/17 01/25/17 01/25/17 04:00 11:15 13:05 WBC RBC 2.49 L Hgb 6.7 L Hct 20.9 L MCV MCH 27 L MCHC RDW 18.8 H Plt Count Lymph % (Auto) [place] % (Auto) 10.1 H Lymph # [place] # 1.0 H Baso # Seg Neutrophils % Seg Neuts % (Manual) Lymphocytes % (Manual) Monocytes % (Manual) Eosinophils % (Manual) Basophils % (Manual) Nucleated RBC % Seg Neutrophils # Seg Neutrophils # Man Lymphocytes # (Manual) Monocytes # (Manual) Eosinophils # (Manual) Basophils # (Manual) PT INR Fibrinogen dRVVT Confirm Interp Factor V Activity POC ABG pH POC ABG pCO2 POC ABG pO2 ABG pO2 ABG HCO3 ABG Base Excess ABG Hemoglobin Oxyhemoglobin Sodium Potassium Chloride Carbon Dioxide BUN Creatinine Glucose POC Glucose 128 H Lactic Acid Calcium Ionized Calcium Phosphorus Magnesium Direct Bilirubin AST ALT Alkaline Phosphatase Lactate Dehydrogenase Troponin T C-Reactive Protein Total Protein Albumin Prealbumin Triglycerides Cholesterol LDL Cholesterol Direct HDL Cholesterol 25-OH Vitamin D Total PTH Intact Urine pH Urine WBC (Auto) Urine Creatinine Urine Total Protein Fluid Total Protein Vancomycin Trough Rheumatoid Factor Complement C4 Miscellaneous Test Crossmatch See Detail 01/25/17 01/25/17 01/26/17 18:02 23:07 01:20 WBC RBC Hgb Hct MCV MCH MCHC RDW Plt Count Lymph % (Auto) [place] % (Auto) Lymph # [place] # Baso # Seg Neutrophils % Seg Neuts % (Manual) Lymphocytes % (Manual) Monocytes % (Manual) Eosinophils % (Manual) Basophils % (Manual) Nucleated RBC % Seg Neutrophils # Seg Neutrophils # Man Lymphocytes # (Manual) Monocytes # (Manual) Eosinophils # (Manual) Basophils # (Manual) PT INR Fibrinogen dRVVT Confirm Interp Factor V Activity POC ABG pH POC ABG pCO2 POC ABG pO2 ABG pO2 ABG HCO3 ABG Base Excess ABG Hemoglobin Oxyhemoglobin Sodium Potassium Chloride Carbon Dioxide BUN Creatinine Glucose POC Glucose 120 H 123 H 112 H Lactic Acid Calcium Ionized Calcium Phosphorus Magnesium Direct Bilirubin AST ALT Alkaline Phosphatase Lactate Dehydrogenase Troponin T C-Reactive Protein Total Protein Albumin Prealbumin Triglycerides Cholesterol LDL Cholesterol Direct HDL Cholesterol 25-OH Vitamin D Total PTH Intact Urine pH Urine WBC (Auto) Urine Creatinine Urine Total Protein Fluid Total Protein Vancomycin Trough Rheumatoid Factor Complement C4 Miscellaneous Test Crossmatch 01/26/17 01/26/17 01/26/17 04:20 04:20 11:23 WBC 13.1 H RBC 3.28 L Hgb 9.0 L Hct 26.9 L D MCV MCH 27 L MCHC RDW 17.2 H Plt Count Lymph % (Auto) [place] % (Auto) 9.0 H Lymph # [place] # 1.2 H Baso # Seg Neutrophils % 73.1 H Seg Neuts % (Manual) Lymphocytes % (Manual) Monocytes % (Manual) Eosinophils % (Manual) Basophils % (Manual) Nucleated RBC % Seg Neutrophils # 9.6 H Seg Neutrophils # Man Lymphocytes # (Manual) Monocytes # (Manual) Eosinophils # (Manual) Basophils # (Manual) PT INR Fibrinogen dRVVT Confirm Interp Factor V Activity POC ABG pH POC ABG pCO2 POC ABG pO2 ABG pO2 ABG HCO3 ABG Base Excess ABG Hemoglobin Oxyhemoglobin Sodium Potassium Chloride Carbon Dioxide BUN 51 H Creatinine Glucose 117 H POC Glucose 125 H Lactic Acid Calcium Ionized Calcium Phosphorus Magnesium Direct Bilirubin AST ALT Alkaline Phosphatase Lactate Dehydrogenase Troponin T C-Reactive Protein Total Protein Albumin Prealbumin Triglycerides Cholesterol LDL Cholesterol Direct HDL Cholesterol 25-OH Vitamin D Total PTH Intact Urine pH Urine WBC (Auto) Urine Creatinine Urine Total Protein Fluid Total Protein Vancomycin Trough Rheumatoid Factor Complement C4 Miscellaneous Test Crossmatch 01/26/17 01/27/17 01/27/17 17:11 00:30 04:00 WBC RBC Hgb Hct MCV MCH MCHC RDW Plt Count Lymph % (Auto) [place] % (Auto) Lymph # [place] # Baso # Seg Neutrophils % Seg Neuts % (Manual) Lymphocytes % (Manual) Monocytes % (Manual) Eosinophils % (Manual) Basophils % (Manual) Nucleated RBC % Seg Neutrophils # Seg Neutrophils # Man Lymphocytes # (Manual) Monocytes # (Manual) Eosinophils # (Manual) Basophils # (Manual) PT INR Fibrinogen dRVVT Confirm Interp Factor V Activity POC ABG pH POC ABG pCO2 POC ABG pO2 ABG pO2 ABG HCO3 ABG Base Excess ABG Hemoglobin Oxyhemoglobin Sodium Potassium Chloride 97.7 L Carbon Dioxide 21 L BUN 79 H Creatinine 1.7 H D Glucose 112 H POC Glucose 133 H 135 H Lactic Acid Calcium Ionized Calcium Phosphorus 5.00 H D Magnesium Direct Bilirubin AST ALT Alkaline Phosphatase Lactate Dehydrogenase Troponin T C-Reactive Protein Total Protein Albumin Prealbumin Triglycerides Cholesterol LDL Cholesterol Direct HDL Cholesterol 25-OH Vitamin D Total PTH Intact Urine pH Urine WBC (Auto) Urine Creatinine Urine Total Protein Fluid Total Protein Vancomycin Trough Rheumatoid Factor Complement C4 Miscellaneous Test Crossmatch 01/27/17 01/27/17 01/27/17 05:12 12:18 17:25 WBC RBC Hgb Hct MCV MCH MCHC RDW Plt Count Lymph % (Auto) [place] % (Auto) Lymph # [place] # Baso # Seg Neutrophils % Seg Neuts % (Manual) Lymphocytes % (Manual) Monocytes % (Manual) Eosinophils % (Manual) Basophils % (Manual) Nucleated RBC % Seg Neutrophils # Seg Neutrophils # Man Lymphocytes # (Manual) Monocytes # (Manual) Eosinophils # (Manual) Basophils # (Manual) PT INR Fibrinogen dRVVT Confirm Interp Factor V Activity POC ABG pH POC ABG pCO2 POC ABG pO2 ABG pO2 ABG HCO3 ABG Base Excess ABG Hemoglobin Oxyhemoglobin Sodium Potassium Chloride Carbon Dioxide BUN Creatinine Glucose POC Glucose 116 H 153 H 152 H Lactic Acid Calcium Ionized Calcium Phosphorus Magnesium Direct Bilirubin AST ALT Alkaline Phosphatase Lactate Dehydrogenase Troponin T C-Reactive Protein Total Protein Albumin Prealbumin Triglycerides Cholesterol LDL Cholesterol Direct HDL Cholesterol 25-OH Vitamin D Total PTH Intact Urine pH Urine WBC (Auto) Urine Creatinine Urine Total Protein Fluid Total Protein Vancomycin Trough Rheumatoid Factor Complement C4 Miscellaneous Test Crossmatch 01/27/17 01/28/17 01/28/17 23:42 04:00 04:00 WBC 14.4 H RBC 2.82 L Hgb 7.4 L Hct 23.5 L MCV MCH 26 L MCHC RDW 17.6 H Plt Count Lymph % (Auto) 10.2 L [place] % (Auto) 11.0 H Lymph # [place] # 1.6 H Baso # Seg Neutrophils % 78.0 H Seg Neuts % (Manual) Lymphocytes % (Manual) Monocytes % (Manual) Eosinophils % (Manual) Basophils % (Manual) Nucleated RBC % Seg Neutrophils # 11.3 H Seg Neutrophils # Man Lymphocytes # (Manual) Monocytes # (Manual) Eosinophils # (Manual) Basophils # (Manual) PT INR Fibrinogen dRVVT Confirm Interp Factor V Activity POC ABG pH POC ABG pCO2 POC ABG pO2 ABG pO2 ABG HCO3 ABG Base Excess ABG Hemoglobin Oxyhemoglobin Sodium Potassium Chloride Carbon Dioxide BUN 55 H Creatinine 1.3 H Glucose 114 H POC Glucose 121 H Lactic Acid Calcium Ionized Calcium Phosphorus Magnesium Direct Bilirubin AST ALT Alkaline Phosphatase Lactate Dehydrogenase Troponin T C-Reactive Protein Total Protein Albumin 1.4 L Prealbumin Triglycerides Cholesterol LDL Cholesterol Direct HDL Cholesterol 25-OH Vitamin D Total PTH Intact Urine pH Urine WBC (Auto) Urine Creatinine Urine Total Protein Fluid Total Protein Vancomycin Trough Rheumatoid Factor Complement C4 Miscellaneous Test Crossmatch 01/28/17 01/28/17 01/29/17 04:59 12:30 00:02 WBC RBC Hgb Hct MCV MCH MCHC RDW Plt Count Lymph % (Auto) [place] % (Auto) Lymph # [place] # Baso # Seg Neutrophils % Seg Neuts % (Manual) Lymphocytes % (Manual) Monocytes % (Manual) Eosinophils % (Manual) Basophils % (Manual) Nucleated RBC % Seg Neutrophils # Seg Neutrophils # Man Lymphocytes # (Manual) Monocytes # (Manual) Eosinophils # (Manual) Basophils # (Manual) PT INR Fibrinogen dRVVT Confirm Interp Factor V Activity POC ABG pH POC ABG pCO2 POC ABG pO2 ABG pO2 ABG HCO3 ABG Base Excess ABG Hemoglobin Oxyhemoglobin Sodium Potassium Chloride Carbon Dioxide BUN Creatinine Glucose POC Glucose 126 H 119 H 138 H Lactic Acid Calcium Ionized Calcium Phosphorus Magnesium Direct Bilirubin AST ALT Alkaline Phosphatase Lactate Dehydrogenase Troponin T C-Reactive Protein Total Protein Albumin Prealbumin Triglycerides Cholesterol LDL Cholesterol Direct HDL Cholesterol 25-OH Vitamin D Total PTH Intact Urine pH Urine WBC (Auto) Urine Creatinine Urine Total Protein Fluid Total Protein Vancomycin Trough Rheumatoid Factor Complement C4 Miscellaneous Test Crossmatch 01/29/17 01/29/17 01/29/17 04:58 06:15 11:35 WBC RBC Hgb Hct MCV MCH MCHC RDW Plt Count Lymph % (Auto) [place] % (Auto) Lymph # [place] # Baso # Seg Neutrophils % Seg Neuts % (Manual) Lymphocytes % (Manual) Monocytes % (Manual) Eosinophils % (Manual) Basophils % (Manual) Nucleated RBC % Seg Neutrophils # Seg Neutrophils # Man Lymphocytes # (Manual) Monocytes # (Manual) Eosinophils # (Manual) Basophils # (Manual) PT INR Fibrinogen dRVVT Confirm Interp Factor V Activity POC ABG pH POC ABG pCO2 POC ABG pO2 ABG pO2 ABG HCO3 ABG Base Excess ABG Hemoglobin Oxyhemoglobin Sodium Potassium Chloride Carbon Dioxide BUN 85 H Creatinine 1.7 H Glucose 105 H POC Glucose 114 H 110 H Lactic Acid Calcium Ionized Calcium Phosphorus Magnesium 2.40 H Direct Bilirubin AST ALT Alkaline Phosphatase Lactate Dehydrogenase Troponin T C-Reactive Protein Total Protein Albumin Prealbumin Triglycerides Cholesterol LDL Cholesterol Direct HDL Cholesterol 25-OH Vitamin D Total PTH Intact Urine pH Urine WBC (Auto) Urine Creatinine Urine Total Protein Fluid Total Protein Vancomycin Trough Rheumatoid Factor Complement C4 Miscellaneous Test Crossmatch 01/29/17 01/29/17 01/30/17 18:24 23:41 05:12 WBC RBC Hgb Hct MCV MCH MCHC RDW Plt Count Lymph % (Auto) [place] % (Auto) Lymph # [place] # Baso # Seg Neutrophils % Seg Neuts % (Manual) Lymphocytes % (Manual) Monocytes % (Manual) Eosinophils % (Manual) Basophils % (Manual) Nucleated RBC % Seg Neutrophils # Seg Neutrophils # Man Lymphocytes # (Manual) Monocytes # (Manual) Eosinophils # (Manual) Basophils # (Manual) PT INR Fibrinogen dRVVT Confirm Interp Factor V Activity POC ABG pH POC ABG pCO2 POC ABG pO2 ABG pO2 ABG HCO3 ABG Base Excess ABG Hemoglobin Oxyhemoglobin Sodium Potassium Chloride Carbon Dioxide BUN Creatinine Glucose POC Glucose 109 H 134 H 109 H Lactic Acid Calcium Ionized Calcium Phosphorus Magnesium Direct Bilirubin AST ALT Alkaline Phosphatase Lactate Dehydrogenase Troponin T C-Reactive Protein Total Protein Albumin Prealbumin Triglycerides Cholesterol LDL Cholesterol Direct HDL Cholesterol 25-OH Vitamin D Total PTH Intact Urine pH Urine WBC (Auto) Urine Creatinine Urine Total Protein Fluid Total Protein Vancomycin Trough Rheumatoid Factor Complement C4 Miscellaneous Test Crossmatch 01/30/17 01/30/17 01/30/17 11:26 17:43 23:39 WBC RBC Hgb Hct MCV MCH MCHC RDW Plt Count Lymph % (Auto) [place] % (Auto) Lymph # [place] # Baso # Seg Neutrophils % Seg Neuts % (Manual) Lymphocytes % (Manual) Monocytes % (Manual) Eosinophils % (Manual) Basophils % (Manual) Nucleated RBC % Seg Neutrophils # Seg Neutrophils # Man Lymphocytes # (Manual) Monocytes # (Manual) Eosinophils # (Manual) Basophils # (Manual) PT INR Fibrinogen dRVVT Confirm Interp Factor V Activity POC ABG pH POC ABG pCO2 POC ABG pO2 ABG pO2 ABG HCO3 ABG Base Excess ABG Hemoglobin Oxyhemoglobin Sodium Potassium Chloride Carbon Dioxide BUN Creatinine Glucose POC Glucose 135 H 143 H 122 H Lactic Acid Calcium Ionized Calcium Phosphorus Magnesium Direct Bilirubin AST ALT Alkaline Phosphatase Lactate Dehydrogenase Troponin T C-Reactive Protein Total Protein Albumin Prealbumin Triglycerides Cholesterol LDL Cholesterol Direct HDL Cholesterol 25-OH Vitamin D Total PTH Intact Urine pH Urine WBC (Auto) Urine Creatinine Urine Total Protein Fluid Total Protein Vancomycin Trough Rheumatoid Factor Complement C4 Miscellaneous Test Crossmatch 01/31/17 01/31/17 01/31/17 04:00 05:40 11:12 WBC RBC Hgb Hct MCV MCH MCHC RDW Plt Count Lymph % (Auto) [place] % (Auto) Lymph # [place] # Baso # Seg Neutrophils % Seg Neuts % (Manual) Lymphocytes % (Manual) Monocytes % (Manual) Eosinophils % (Manual) Basophils % (Manual) Nucleated RBC % Seg Neutrophils # Seg Neutrophils # Man Lymphocytes # (Manual) Monocytes # (Manual) Eosinophils # (Manual) Basophils # (Manual) PT INR Fibrinogen dRVVT Confirm Interp Factor V Activity POC ABG pH POC ABG pCO2 POC ABG pO2 ABG pO2 ABG HCO3 ABG Base Excess ABG Hemoglobin Oxyhemoglobin Sodium Potassium Chloride Carbon Dioxide BUN 78 H Creatinine 1.5 H Glucose 108 H POC Glucose 123 H Lactic Acid Calcium Ionized Calcium Phosphorus Magnesium Direct Bilirubin AST ALT Alkaline Phosphatase Lactate Dehydrogenase Troponin T C-Reactive Protein 8.10 H Total Protein Albumin Prealbumin Triglycerides Cholesterol LDL Cholesterol Direct HDL Cholesterol 25-OH Vitamin D Total PTH Intact Urine pH Urine WBC (Auto) Urine Creatinine Urine Total Protein Fluid Total Protein Vancomycin Trough Rheumatoid Factor Complement C4 Miscellaneous Test Crossmatch 01/31/17 01/31/17 01/31/17 11:16 17:45 17:50 WBC RBC Hgb Hct MCV MCH MCHC RDW Plt Count Lymph % (Auto) [place] % (Auto) Lymph # [place] # Baso # Seg Neutrophils % Seg Neuts % (Manual) Lymphocytes % (Manual) Monocytes % (Manual) Eosinophils % (Manual) Basophils % (Manual) Nucleated RBC % Seg Neutrophils # Seg Neutrophils # Man Lymphocytes # (Manual) Monocytes # (Manual) Eosinophils # (Manual) Basophils # (Manual) PT INR Fibrinogen dRVVT Confirm Interp Factor V Activity POC ABG pH POC ABG pCO2 POC ABG pO2 ABG pO2 ABG HCO3 ABG Base Excess ABG Hemoglobin Oxyhemoglobin Sodium Potassium Chloride Carbon Dioxide BUN Creatinine Glucose POC Glucose 119 H 111 H Lactic Acid Calcium Ionized Calcium Phosphorus Magnesium Direct Bilirubin AST ALT Alkaline Phosphatase Lactate Dehydrogenase Troponin T C-Reactive Protein Total Protein Albumin Prealbumin Triglycerides Cholesterol LDL Cholesterol Direct HDL Cholesterol 25-OH Vitamin D Total PTH Intact 6.76 L Urine pH Urine WBC (Auto) Urine Creatinine Urine Total Protein Fluid Total Protein Vancomycin Trough Rheumatoid Factor Complement C4 Miscellaneous Test Crossmatch 01/31/17 02/01/17 02/01/17 23:19 05:42 09:24 WBC RBC Hgb Hct MCV MCH MCHC RDW Plt Count Lymph % (Auto) [place] % (Auto) Lymph # [place] # Baso # Seg Neutrophils % Seg Neuts % (Manual) Lymphocytes % (Manual) Monocytes % (Manual) Eosinophils % (Manual) Basophils % (Manual) Nucleated RBC % Seg Neutrophils # Seg Neutrophils # Man Lymphocytes # (Manual) Monocytes # (Manual) Eosinophils # (Manual) Basophils # (Manual) PT INR Fibrinogen dRVVT Confirm Interp Factor V Activity POC ABG pH POC ABG pCO2 POC ABG pO2 ABG pO2 ABG HCO3 ABG Base Excess ABG Hemoglobin Oxyhemoglobin Sodium Potassium Chloride Carbon Dioxide BUN Creatinine Glucose POC Glucose 118 H 122 H Lactic Acid Calcium Ionized Calcium Phosphorus Magnesium 2.60 H Direct Bilirubin AST ALT Alkaline Phosphatase Lactate Dehydrogenase Troponin T C-Reactive Protein Total Protein Albumin Prealbumin Triglycerides Cholesterol LDL Cholesterol Direct HDL Cholesterol 25-OH Vitamin D Total PTH Intact Urine pH Urine WBC (Auto) Urine Creatinine Urine Total Protein Fluid Total Protein Vancomycin Trough Rheumatoid Factor Complement C4 Miscellaneous Test Crossmatch 02/01/17 02/01/17 02/02/17 09:24 12:15 07:40 WBC RBC Hgb Hct MCV MCH MCHC RDW Plt Count Lymph % (Auto) [place] % (Auto) Lymph # [place] # Baso # Seg Neutrophils % Seg Neuts % (Manual) Lymphocytes % (Manual) Monocytes % (Manual) Eosinophils % (Manual) Basophils % (Manual) Nucleated RBC % Seg Neutrophils # Seg Neutrophils # Man Lymphocytes # (Manual) Monocytes # (Manual) Eosinophils # (Manual) Basophils # (Manual) PT INR Fibrinogen dRVVT Confirm Interp Factor V Activity POC ABG pH POC ABG pCO2 POC ABG pO2 ABG pO2 ABG HCO3 ABG Base Excess ABG Hemoglobin Oxyhemoglobin Sodium Potassium Chloride Carbon Dioxide BUN 102 H 72 H Creatinine 1.9 H 1.5 H Glucose 120 H POC Glucose 156 H Lactic Acid Calcium Ionized Calcium Phosphorus Magnesium Direct Bilirubin AST ALT Alkaline Phosphatase Lactate Dehydrogenase Troponin T C-Reactive Protein Total Protein Albumin Prealbumin Triglycerides Cholesterol LDL Cholesterol Direct HDL Cholesterol 25-OH Vitamin D Total PTH Intact Urine pH Urine WBC (Auto) Urine Creatinine Urine Total Protein Fluid Total Protein Vancomycin Trough Rheumatoid Factor Complement C4 Miscellaneous Test Crossmatch 02/02/17 02/02/17 02/03/17 10:16 12:11 00:08 WBC 12.0 H RBC 3.08 L Hgb 8.3 L Hct 25.6 L MCV MCH 27 L MCHC RDW 18.2 H Plt Count Lymph % (Auto) [place] % (Auto) Lymph # [place] # Baso # Seg Neutrophils % 78.4 H Seg Neuts % (Manual) Lymphocytes % (Manual) Monocytes % (Manual) Eosinophils % (Manual) Basophils % (Manual) Nucleated RBC % Seg Neutrophils # 9.4 H Seg Neutrophils # Man Lymphocytes # (Manual) Monocytes # (Manual) Eosinophils # (Manual) Basophils # (Manual) PT INR Fibrinogen dRVVT Confirm Interp Factor V Activity POC ABG pH POC ABG pCO2 POC ABG pO2 ABG pO2 ABG HCO3 ABG Base Excess ABG Hemoglobin Oxyhemoglobin Sodium Potassium Chloride Carbon Dioxide BUN Creatinine Glucose POC Glucose 110 H 120 H Lactic Acid Calcium Ionized Calcium Phosphorus Magnesium Direct Bilirubin AST ALT Alkaline Phosphatase Lactate Dehydrogenase Troponin T C-Reactive Protein Total Protein Albumin Prealbumin Triglycerides Cholesterol LDL Cholesterol Direct HDL Cholesterol 25-OH Vitamin D Total PTH Intact Urine pH Urine WBC (Auto) Urine Creatinine Urine Total Protein Fluid Total Protein Vancomycin Trough Rheumatoid Factor Complement C4 Miscellaneous Test Crossmatch 02/03/17 02/03/17 02/03/17 05:41 07:38 11:31 WBC RBC Hgb Hct MCV MCH MCHC RDW Plt Count Lymph % (Auto) [place] % (Auto) Lymph # [place] # Baso # Seg Neutrophils % Seg Neuts % (Manual) Lymphocytes % (Manual) Monocytes % (Manual) Eosinophils % (Manual) Basophils % (Manual) Nucleated RBC % Seg Neutrophils # Seg Neutrophils # Man Lymphocytes # (Manual) Monocytes # (Manual) Eosinophils # (Manual) Basophils # (Manual) PT INR Fibrinogen dRVVT Confirm Interp Factor V Activity POC ABG pH POC ABG pCO2 POC ABG pO2 ABG pO2 ABG HCO3 ABG Base Excess ABG Hemoglobin Oxyhemoglobin Sodium 134 L Potassium Chloride Carbon Dioxide 21 L BUN 91 H Creatinine 1.9 H Glucose 110 H POC Glucose 119 H 119 H Lactic Acid Calcium 10.3 H Ionized Calcium Phosphorus Magnesium Direct Bilirubin AST ALT Alkaline Phosphatase Lactate Dehydrogenase Troponin T C-Reactive Protein Total Protein Albumin Prealbumin Triglycerides Cholesterol LDL Cholesterol Direct HDL Cholesterol 25-OH Vitamin D Total PTH Intact Urine pH Urine WBC (Auto) Urine Creatinine Urine Total Protein Fluid Total Protein Vancomycin Trough Rheumatoid Factor Complement C4 Miscellaneous Test Crossmatch 02/03/17 02/04/17 02/04/17 17:13 04:00 05:18 WBC RBC Hgb Hct MCV MCH MCHC RDW Plt Count Lymph % (Auto) [place] % (Auto) Lymph # [place] # Baso # Seg Neutrophils % Seg Neuts % (Manual) Lymphocytes % (Manual) Monocytes % (Manual) Eosinophils % (Manual) Basophils % (Manual) Nucleated RBC % Seg Neutrophils # Seg Neutrophils # Man Lymphocytes # (Manual) Monocytes # (Manual) Eosinophils # (Manual) Basophils # (Manual) PT INR Fibrinogen dRVVT Confirm Interp Factor V Activity POC ABG pH POC ABG pCO2 POC ABG pO2 ABG pO2 ABG HCO3 ABG Base Excess ABG Hemoglobin Oxyhemoglobin Sodium 136 L Potassium Chloride Carbon Dioxide BUN 58 H Creatinine 1.3 H Glucose 103 H POC Glucose 133 H 132 H Lactic Acid Calcium Ionized Calcium Phosphorus 2.00 L D Magnesium 1.60 L Direct Bilirubin AST ALT Alkaline Phosphatase Lactate Dehydrogenase Troponin T C-Reactive Protein Total Protein Albumin Prealbumin Triglycerides Cholesterol LDL Cholesterol Direct HDL Cholesterol 25-OH Vitamin D Total PTH Intact Urine pH Urine WBC (Auto) Urine Creatinine Urine Total Protein Fluid Total Protein Vancomycin Trough Rheumatoid Factor Complement C4 Miscellaneous Test Crossmatch 02/05/17 02/05/17 02/05/17 00:01 04:00 06:42 WBC RBC Hgb Hct MCV MCH MCHC RDW Plt Count Lymph % (Auto) [place] % (Auto) Lymph # [place] # Baso # Seg Neutrophils % Seg Neuts % (Manual) Lymphocytes % (Manual) Monocytes % (Manual) Eosinophils % (Manual) Basophils % (Manual) Nucleated RBC % Seg Neutrophils # Seg Neutrophils # Man Lymphocytes # (Manual) Monocytes # (Manual) Eosinophils # (Manual) Basophils # (Manual) PT INR Fibrinogen dRVVT Confirm Interp Factor V Activity POC ABG pH POC ABG pCO2 POC ABG pO2 ABG pO2 ABG HCO3 ABG Base Excess ABG Hemoglobin Oxyhemoglobin Sodium Potassium Chloride Carbon Dioxide BUN 83 H Creatinine 1.8 H Glucose POC Glucose 119 H 110 H Lactic Acid Calcium 10.7 H Ionized Calcium Phosphorus Magnesium Direct Bilirubin AST ALT Alkaline Phosphatase Lactate Dehydrogenase Troponin T C-Reactive Protein Total Protein Albumin Prealbumin Triglycerides Cholesterol LDL Cholesterol Direct HDL Cholesterol 25-OH Vitamin D Total PTH Intact Urine pH Urine WBC (Auto) Urine Creatinine Urine Total Protein Fluid Total Protein Vancomycin Trough Rheumatoid Factor Complement C4 Miscellaneous Test Crossmatch 02/05/17 02/05/17 02/05/17 09:59 11:47 23:44 WBC RBC 2.69 L Hgb 7.2 L Hct 22.5 L MCV MCH 27 L MCHC RDW 18.6 H Plt Count Lymph % (Auto) [place] % (Auto) 9.2 H Lymph # [place] # 0.9 H Baso # Seg Neutrophils % Seg Neuts % (Manual) Lymphocytes % (Manual) Monocytes % (Manual) Eosinophils % (Manual) Basophils % (Manual) Nucleated RBC % Seg Neutrophils # Seg Neutrophils # Man Lymphocytes # (Manual) Monocytes # (Manual) Eosinophils # (Manual) Basophils # (Manual) PT INR Fibrinogen dRVVT Confirm Interp Factor V Activity POC ABG pH POC ABG pCO2 POC ABG pO2 ABG pO2 ABG HCO3 ABG Base Excess ABG Hemoglobin Oxyhemoglobin Sodium Potassium Chloride Carbon Dioxide BUN Creatinine Glucose POC Glucose 130 H 123 H Lactic Acid Calcium Ionized Calcium Phosphorus Magnesium Direct Bilirubin AST ALT Alkaline Phosphatase Lactate Dehydrogenase Troponin T C-Reactive Protein Total Protein Albumin Prealbumin Triglycerides Cholesterol LDL Cholesterol Direct HDL Cholesterol 25-OH Vitamin D Total PTH Intact Urine pH Urine WBC (Auto) Urine Creatinine Urine Total Protein Fluid Total Protein Vancomycin Trough Rheumatoid Factor Complement C4 Miscellaneous Test Crossmatch 02/06/17 02/06/17 02/06/17 04:45 05:58 12:01 WBC RBC Hgb Hct MCV MCH MCHC RDW Plt Count Lymph % (Auto) [place] % (Auto) Lymph # [place] # Baso # Seg Neutrophils % Seg Neuts % (Manual) Lymphocytes % (Manual) Monocytes % (Manual) Eosinophils % (Manual) Basophils % (Manual) Nucleated RBC % Seg Neutrophils # Seg Neutrophils # Man Lymphocytes # (Manual) Monocytes # (Manual) Eosinophils # (Manual) Basophils # (Manual) PT INR Fibrinogen dRVVT Confirm Interp Factor V Activity POC ABG pH POC ABG pCO2 POC ABG pO2 ABG pO2 ABG HCO3 ABG Base Excess ABG Hemoglobin Oxyhemoglobin Sodium Potassium Chloride Carbon Dioxide BUN 101 H Creatinine 2.0 H Glucose 102 H POC Glucose 115 H 132 H Lactic Acid Calcium 10.6 H Ionized Calcium Phosphorus Magnesium Direct Bilirubin AST ALT Alkaline Phosphatase 199 H Lactate Dehydrogenase Troponin T C-Reactive Protein Total Protein Albumin 1.4 L Prealbumin Triglycerides Cholesterol LDL Cholesterol Direct HDL Cholesterol 25-OH Vitamin D Total PTH Intact Urine pH Urine WBC (Auto) Urine Creatinine Urine Total Protein Fluid Total Protein Vancomycin Trough Rheumatoid Factor Complement C4 Miscellaneous Test Crossmatch 02/06/17 02/06/17 02/07/17 17:41 23:32 05:04 WBC RBC Hgb Hct MCV MCH MCHC RDW Plt Count Lymph % (Auto) [place] % (Auto) Lymph # [place] # Baso # Seg Neutrophils % Seg Neuts % (Manual) Lymphocytes % (Manual) Monocytes % (Manual) Eosinophils % (Manual) Basophils % (Manual) Nucleated RBC % Seg Neutrophils # Seg Neutrophils # Man Lymphocytes # (Manual) Monocytes # (Manual) Eosinophils # (Manual) Basophils # (Manual) PT INR Fibrinogen dRVVT Confirm Interp Factor V Activity POC ABG pH POC ABG pCO2 POC ABG pO2 ABG pO2 ABG HCO3 ABG Base Excess ABG Hemoglobin Oxyhemoglobin Sodium Potassium Chloride Carbon Dioxide BUN Creatinine Glucose POC Glucose 134 H 128 H 119 H Lactic Acid Calcium Ionized Calcium Phosphorus Magnesium Direct Bilirubin AST ALT Alkaline Phosphatase Lactate Dehydrogenase Troponin T C-Reactive Protein Total Protein Albumin Prealbumin Triglycerides Cholesterol LDL Cholesterol Direct HDL Cholesterol 25-OH Vitamin D Total PTH Intact Urine pH Urine WBC (Auto) Urine Creatinine Urine Total Protein Fluid Total Protein Vancomycin Trough Rheumatoid Factor Complement C4 Miscellaneous Test Crossmatch 02/07/17 02/07/17 02/07/17 06:30 11:20 17:13 WBC RBC Hgb Hct MCV MCH MCHC RDW Plt Count Lymph % (Auto) [place] % (Auto) Lymph # [place] # Baso # Seg Neutrophils % Seg Neuts % (Manual) Lymphocytes % (Manual) Monocytes % (Manual) Eosinophils % (Manual) Basophils % (Manual) Nucleated RBC % Seg Neutrophils # Seg Neutrophils # Man Lymphocytes # (Manual) Monocytes # (Manual) Eosinophils # (Manual) Basophils # (Manual) PT INR Fibrinogen dRVVT Confirm Interp Factor V Activity POC ABG pH POC ABG pCO2 POC ABG pO2 ABG pO2 ABG HCO3 ABG Base Excess ABG Hemoglobin Oxyhemoglobin Sodium Potassium 3.4 L Chloride Carbon Dioxide BUN 69 H Creatinine 1.5 H Glucose 105 H POC Glucose 117 H 110 H Lactic Acid Calcium Ionized Calcium Phosphorus Magnesium 1.50 L Direct Bilirubin AST ALT Alkaline Phosphatase Lactate Dehydrogenase Troponin T C-Reactive Protein Total Protein Albumin Prealbumin Triglycerides Cholesterol LDL Cholesterol Direct HDL Cholesterol 25-OH Vitamin D Total PTH Intact Urine pH Urine WBC (Auto) Urine Creatinine Urine Total Protein Fluid Total Protein Vancomycin Trough Rheumatoid Factor Complement C4 Miscellaneous Test Crossmatch 02/07/17 02/08/17 02/08/17 20:47 04:00 11:43 WBC RBC Hgb Hct MCV MCH MCHC RDW Plt Count Lymph % (Auto) [place] % (Auto) Lymph # [place] # Baso # Seg Neutrophils % Seg Neuts % (Manual) Lymphocytes % (Manual) Monocytes % (Manual) Eosinophils % (Manual) Basophils % (Manual) Nucleated RBC % Seg Neutrophils # Seg Neutrophils # Man Lymphocytes # (Manual) Monocytes # (Manual) Eosinophils # (Manual) Basophils # (Manual) PT INR Fibrinogen dRVVT Confirm Interp Factor V Activity POC ABG pH POC ABG pCO2 POC ABG pO2 ABG pO2 ABG HCO3 ABG Base Excess ABG Hemoglobin Oxyhemoglobin Sodium Potassium Chloride Carbon Dioxide BUN 86 H Creatinine 1.7 H Glucose POC Glucose 115 H 122 H Lactic Acid Calcium Ionized Calcium Phosphorus Magnesium 1.60 L Direct Bilirubin AST ALT Alkaline Phosphatase Lactate Dehydrogenase Troponin T C-Reactive Protein Total Protein Albumin Prealbumin Triglycerides Cholesterol LDL Cholesterol Direct HDL Cholesterol 25-OH Vitamin D Total PTH Intact Urine pH Urine WBC (Auto) Urine Creatinine Urine Total Protein Fluid Total Protein Vancomycin Trough Rheumatoid Factor Complement C4 Miscellaneous Test Crossmatch 02/08/17 02/09/17 02/09/17 17:36 05:44 11:30 WBC RBC Hgb Hct MCV MCH MCHC RDW Plt Count Lymph % (Auto) [place] % (Auto) Lymph # [place] # Baso # Seg Neutrophils % Seg Neuts % (Manual) Lymphocytes % (Manual) Monocytes % (Manual) Eosinophils % (Manual) Basophils % (Manual) Nucleated RBC % Seg Neutrophils # Seg Neutrophils # Man Lymphocytes # (Manual) Monocytes # (Manual) Eosinophils # (Manual) Basophils # (Manual) PT INR Fibrinogen dRVVT Confirm Interp Factor V Activity POC ABG pH POC ABG pCO2 POC ABG pO2 ABG pO2 ABG HCO3 ABG Base Excess ABG Hemoglobin Oxyhemoglobin Sodium Potassium Chloride Carbon Dioxide BUN Creatinine Glucose POC Glucose 125 H 117 H 120 H Lactic Acid Calcium Ionized Calcium Phosphorus Magnesium Direct Bilirubin AST ALT Alkaline Phosphatase Lactate Dehydrogenase Troponin T C-Reactive Protein Total Protein Albumin Prealbumin Triglycerides Cholesterol LDL Cholesterol Direct HDL Cholesterol 25-OH Vitamin D Total PTH Intact Urine pH Urine WBC (Auto) Urine Creatinine Urine Total Protein Fluid Total Protein Vancomycin Trough Rheumatoid Factor Complement C4 Miscellaneous Test Crossmatch 02/09/17 02/10/17 02/10/17 23:45 05:45 05:50 WBC RBC Hgb Hct MCV MCH MCHC RDW Plt Count Lymph % (Auto) [place] % (Auto) Lymph # [place] # Baso # Seg Neutrophils % Seg Neuts % (Manual) Lymphocytes % (Manual) Monocytes % (Manual) Eosinophils % (Manual) Basophils % (Manual) Nucleated RBC % Seg Neutrophils # Seg Neutrophils # Man Lymphocytes # (Manual) Monocytes # (Manual) Eosinophils # (Manual) Basophils # (Manual) PT INR Fibrinogen dRVVT Confirm Interp Factor V Activity POC ABG pH POC ABG pCO2 POC ABG pO2 ABG pO2 ABG HCO3 ABG Base Excess ABG Hemoglobin Oxyhemoglobin Sodium Potassium Chloride Carbon Dioxide BUN 85 H Creatinine 1.8 H Glucose 109 H POC Glucose 114 H 189 H Lactic Acid Calcium Ionized Calcium Phosphorus Magnesium 2.50 H Direct Bilirubin AST ALT Alkaline Phosphatase Lactate Dehydrogenase Troponin T C-Reactive Protein Total Protein Albumin Prealbumin Triglycerides Cholesterol LDL Cholesterol Direct HDL Cholesterol 25-OH Vitamin D Total PTH Intact Urine pH Urine WBC (Auto) Urine Creatinine Urine Total Protein Fluid Total Protein Vancomycin Trough Rheumatoid Factor Complement C4 Miscellaneous Test Crossmatch 02/10/17 02/10/17 02/10/17 05:51 11:55 17:42 WBC RBC Hgb Hct MCV MCH MCHC RDW Plt Count Lymph % (Auto) [place] % (Auto) Lymph # [place] # Baso # Seg Neutrophils % Seg Neuts % (Manual) Lymphocytes % (Manual) Monocytes % (Manual) Eosinophils % (Manual) Basophils % (Manual) Nucleated RBC % Seg Neutrophils # Seg Neutrophils # Man Lymphocytes # (Manual) Monocytes # (Manual) Eosinophils # (Manual) Basophils # (Manual) PT INR Fibrinogen dRVVT Confirm Interp Factor V Activity POC ABG pH POC ABG pCO2 POC ABG pO2 ABG pO2 ABG HCO3 ABG Base Excess ABG Hemoglobin Oxyhemoglobin Sodium Potassium Chloride Carbon Dioxide BUN Creatinine Glucose POC Glucose 106 H 146 H 132 H Lactic Acid Calcium Ionized Calcium Phosphorus Magnesium Direct Bilirubin AST ALT Alkaline Phosphatase Lactate Dehydrogenase Troponin T C-Reactive Protein Total Protein Albumin Prealbumin Triglycerides Cholesterol LDL Cholesterol Direct HDL Cholesterol 25-OH Vitamin D Total PTH Intact Urine pH Urine WBC (Auto) Urine Creatinine Urine Total Protein Fluid Total Protein Vancomycin Trough Rheumatoid Factor Complement C4 Miscellaneous Test Crossmatch 02/10/17 02/11/17 02/11/17 23:43 04:08 05:34 WBC RBC Hgb Hct MCV MCH MCHC RDW Plt Count Lymph % (Auto) [place] % (Auto) Lymph # [place] # Baso # Seg Neutrophils % Seg Neuts % (Manual) Lymphocytes % (Manual) Monocytes % (Manual) Eosinophils % (Manual) Basophils % (Manual) Nucleated RBC % Seg Neutrophils # Seg Neutrophils # Man Lymphocytes # (Manual) Monocytes # (Manual) Eosinophils # (Manual) Basophils # (Manual) PT INR Fibrinogen dRVVT Confirm Interp Factor V Activity POC ABG pH POC ABG pCO2 POC ABG pO2 ABG pO2 ABG HCO3 ABG Base Excess ABG Hemoglobin Oxyhemoglobin Sodium 136 L Potassium Chloride Carbon Dioxide BUN 65 H Creatinine 1.7 H Glucose 105 H POC Glucose 130 H 113 H Lactic Acid Calcium Ionized Calcium Phosphorus Magnesium Direct Bilirubin AST ALT Alkaline Phosphatase Lactate Dehydrogenase Troponin T C-Reactive Protein Total Protein Albumin Prealbumin Triglycerides Cholesterol LDL Cholesterol Direct HDL Cholesterol 25-OH Vitamin D Total PTH Intact Urine pH Urine WBC (Auto) Urine Creatinine Urine Total Protein Fluid Total Protein Vancomycin Trough Rheumatoid Factor Complement C4 Miscellaneous Test Crossmatch 02/11/17 02/11/17 02/12/17 11:56 23:18 06:19 WBC RBC Hgb Hct MCV MCH MCHC RDW Plt Count Lymph % (Auto) [place] % (Auto) Lymph # [place] # Baso # Seg Neutrophils % Seg Neuts % (Manual) Lymphocytes % (Manual) Monocytes % (Manual) Eosinophils % (Manual) Basophils % (Manual) Nucleated RBC % Seg Neutrophils # Seg Neutrophils # Man Lymphocytes # (Manual) Monocytes # (Manual) Eosinophils # (Manual) Basophils # (Manual) PT INR Fibrinogen dRVVT Confirm Interp Factor V Activity POC ABG pH POC ABG pCO2 POC ABG pO2 ABG pO2 ABG HCO3 ABG Base Excess ABG Hemoglobin Oxyhemoglobin Sodium 136 L Potassium Chloride 97.1 L Carbon Dioxide BUN 93 H Creatinine 2.4 H Glucose POC Glucose 126 H 119 H Lactic Acid Calcium 11.0 H Ionized Calcium Phosphorus Magnesium Direct Bilirubin AST ALT Alkaline Phosphatase Lactate Dehydrogenase Troponin T C-Reactive Protein Total Protein Albumin Prealbumin Triglycerides Cholesterol LDL Cholesterol Direct HDL Cholesterol 25-OH Vitamin D Total PTH Intact Urine pH Urine WBC (Auto) Urine Creatinine Urine Total Protein Fluid Total Protein Vancomycin Trough Rheumatoid Factor Complement C4 Miscellaneous Test Crossmatch 02/12/17 02/12/17 02/12/17 08:00 10:25 11:42 WBC 15.4 H RBC 2.63 L Hgb 6.9 L Hct 22.6 L MCV MCH 26 L MCHC RDW 20.5 H Plt Count Lymph % (Auto) [place] % (Auto) Lymph # [place] # Baso # Seg Neutrophils % Seg Neuts % (Manual) Lymphocytes % (Manual) Monocytes % (Manual) Eosinophils % (Manual) Basophils % (Manual) Nucleated RBC % Seg Neutrophils # Seg Neutrophils # Man Lymphocytes # (Manual) Monocytes # (Manual) Eosinophils # (Manual) Basophils # (Manual) PT INR Fibrinogen dRVVT Confirm Interp Factor V Activity POC ABG pH POC ABG pCO2 POC ABG pO2 ABG pO2 ABG HCO3 ABG Base Excess ABG Hemoglobin Oxyhemoglobin Sodium Potassium Chloride Carbon Dioxide BUN Creatinine Glucose POC Glucose 142 H Lactic Acid Calcium Ionized Calcium Phosphorus Magnesium Direct Bilirubin AST ALT Alkaline Phosphatase Lactate Dehydrogenase Troponin T C-Reactive Protein Total Protein Albumin Prealbumin Triglycerides Cholesterol LDL Cholesterol Direct HDL Cholesterol 25-OH Vitamin D Total PTH Intact Urine pH Urine WBC (Auto) Urine Creatinine Urine Total Protein Fluid Total Protein Vancomycin Trough Rheumatoid Factor Complement C4 Miscellaneous Test Crossmatch See Detail 02/12/17 02/13/17 02/13/17 18:04 00:04 05:00 WBC RBC Hgb Hct MCV MCH MCHC RDW Plt Count Lymph % (Auto) [place] % (Auto) Lymph # [place] # Baso # Seg Neutrophils % Seg Neuts % (Manual) Lymphocytes % (Manual) Monocytes % (Manual) Eosinophils % (Manual) Basophils % (Manual) Nucleated RBC % Seg Neutrophils # Seg Neutrophils # Man Lymphocytes # (Manual) Monocytes # (Manual) Eosinophils # (Manual) Basophils # (Manual) PT INR Fibrinogen dRVVT Confirm Interp Factor V Activity POC ABG pH POC ABG pCO2 POC ABG pO2 ABG pO2 ABG HCO3 ABG Base Excess ABG Hemoglobin Oxyhemoglobin Sodium 134 L Potassium Chloride 96.1 L Carbon Dioxide 20 L BUN 125 H Creatinine 3.0 H Glucose 111 H POC Glucose 135 H 109 H Lactic Acid Calcium 11.3 H Ionized Calcium Phosphorus Magnesium Direct Bilirubin AST ALT Alkaline Phosphatase Lactate Dehydrogenase Troponin T C-Reactive Protein Total Protein Albumin Prealbumin Triglycerides Cholesterol LDL Cholesterol Direct HDL Cholesterol 25-OH Vitamin D Total PTH Intact Urine pH Urine WBC (Auto) Urine Creatinine Urine Total Protein Fluid Total Protein Vancomycin Trough Rheumatoid Factor Complement C4 Miscellaneous Test Crossmatch 02/13/17 02/13/17 02/13/17 05:00 05:28 12:03 WBC 11.9 H RBC 2.92 L Hgb 7.8 L Hct 25.2 L MCV MCH 27 L MCHC RDW 19.3 H Plt Count Lymph % (Auto) [place] % (Auto) Lymph # [place] # Baso # Seg Neutrophils % Seg Neuts % (Manual) Lymphocytes % (Manual) Monocytes % (Manual) Eosinophils % (Manual) Basophils % (Manual) Nucleated RBC % Seg Neutrophils # Seg Neutrophils # Man Lymphocytes # (Manual) Monocytes # (Manual) Eosinophils # (Manual) Basophils # (Manual) PT INR Fibrinogen dRVVT Confirm Interp Factor V Activity POC ABG pH POC ABG pCO2 POC ABG pO2 ABG pO2 ABG HCO3 ABG Base Excess ABG Hemoglobin Oxyhemoglobin Sodium Potassium Chloride Carbon Dioxide BUN Creatinine Glucose POC Glucose 124 H 160 H Lactic Acid Calcium Ionized Calcium Phosphorus Magnesium Direct Bilirubin AST ALT Alkaline Phosphatase Lactate Dehydrogenase Troponin T C-Reactive Protein Total Protein Albumin Prealbumin Triglycerides Cholesterol LDL Cholesterol Direct HDL Cholesterol 25-OH Vitamin D Total PTH Intact Urine pH Urine WBC (Auto) Urine Creatinine Urine Total Protein Fluid Total Protein Vancomycin Trough Rheumatoid Factor Complement C4 Miscellaneous Test Crossmatch 02/13/17 02/14/17 02/14/17 18:09 06:16 08:08 WBC 15.2 H RBC 2.97 L Hgb 8.1 L Hct 26.3 L MCV MCH MCHC RDW 19.3 H Plt Count Lymph % (Auto) [place] % (Auto) Lymph # [place] # Baso # Seg Neutrophils % Seg Neuts % (Manual) Lymphocytes % (Manual) Monocytes % (Manual) Eosinophils % (Manual) Basophils % (Manual) Nucleated RBC % Seg Neutrophils # Seg Neutrophils # Man Lymphocytes # (Manual) Monocytes # (Manual) Eosinophils # (Manual) Basophils # (Manual) PT INR Fibrinogen dRVVT Confirm Interp Factor V Activity POC ABG pH POC ABG pCO2 POC ABG pO2 ABG pO2 ABG HCO3 ABG Base Excess ABG Hemoglobin Oxyhemoglobin Sodium Potassium Chloride Carbon Dioxide BUN Creatinine Glucose POC Glucose 110 H 112 H Lactic Acid Calcium Ionized Calcium Phosphorus Magnesium Direct Bilirubin AST ALT Alkaline Phosphatase Lactate Dehydrogenase Troponin T C-Reactive Protein Total Protein Albumin Prealbumin Triglycerides Cholesterol LDL Cholesterol Direct HDL Cholesterol 25-OH Vitamin D Total PTH Intact Urine pH Urine WBC (Auto) Urine Creatinine Urine Total Protein Fluid Total Protein Vancomycin Trough Rheumatoid Factor Complement C4 Miscellaneous Test Crossmatch 02/14/17 02/14/17 02/15/17 08:08 17:41 04:15 WBC RBC Hgb Hct MCV MCH MCHC RDW Plt Count Lymph % (Auto) [place] % (Auto) Lymph # [place] # Baso # Seg Neutrophils % Seg Neuts % (Manual) Lymphocytes % (Manual) Monocytes % (Manual) Eosinophils % (Manual) Basophils % (Manual) Nucleated RBC % Seg Neutrophils # Seg Neutrophils # Man Lymphocytes # (Manual) Monocytes # (Manual) Eosinophils # (Manual) Basophils # (Manual) PT INR Fibrinogen dRVVT Confirm Interp Factor V Activity POC ABG pH POC ABG pCO2 POC ABG pO2 ABG pO2 ABG HCO3 ABG Base Excess ABG Hemoglobin Oxyhemoglobin Sodium Potassium Chloride Carbon Dioxide 18 L 21 L BUN 79 H 113 H Creatinine 2.1 H 2.8 H Glucose POC Glucose 118 H Lactic Acid Calcium 10.7 H Ionized Calcium Phosphorus 1.70 L D Magnesium 1.60 L Direct Bilirubin AST ALT Alkaline Phosphatase Lactate Dehydrogenase Troponin T C-Reactive Protein Total Protein Albumin Prealbumin Triglycerides Cholesterol LDL Cholesterol Direct HDL Cholesterol 25-OH Vitamin D Total PTH Intact Urine pH Urine WBC (Auto) Urine Creatinine Urine Total Protein Fluid Total Protein Vancomycin Trough Rheumatoid Factor Complement C4 Miscellaneous Test Crossmatch 02/15/17 02/15/17 02/15/17 06:06 11:31 17:52 WBC RBC Hgb Hct MCV MCH MCHC RDW Plt Count Lymph % (Auto) [place] % (Auto) Lymph # [place] # Baso # Seg Neutrophils % Seg Neuts % (Manual) Lymphocytes % (Manual) Monocytes % (Manual) Eosinophils % (Manual) Basophils % (Manual) Nucleated RBC % Seg Neutrophils # Seg Neutrophils # Man Lymphocytes # (Manual) Monocytes # (Manual) Eosinophils # (Manual) Basophils # (Manual) PT INR Fibrinogen dRVVT Confirm Interp Factor V Activity POC ABG pH POC ABG pCO2 POC ABG pO2 ABG pO2 ABG HCO3 ABG Base Excess ABG Hemoglobin Oxyhemoglobin Sodium Potassium Chloride Carbon Dioxide BUN Creatinine Glucose POC Glucose 115 H 129 H 201 H Lactic Acid Calcium Ionized Calcium Phosphorus Magnesium Direct Bilirubin AST ALT Alkaline Phosphatase Lactate Dehydrogenase Troponin T C-Reactive Protein Total Protein Albumin Prealbumin Triglycerides Cholesterol LDL Cholesterol Direct HDL Cholesterol 25-OH Vitamin D Total PTH Intact Urine pH Urine WBC (Auto) Urine Creatinine Urine Total Protein Fluid Total Protein Vancomycin Trough Rheumatoid Factor Complement C4 Miscellaneous Test Crossmatch 02/15/17 02/15/17 02/15/17 19:08 19:08 19:08 WBC RBC Hgb Hct MCV MCH MCHC RDW Plt Count Lymph % (Auto) [place] % (Auto) Lymph # [place] # Baso # Seg Neutrophils % Seg Neuts % (Manual) Lymphocytes % (Manual) Monocytes % (Manual) Eosinophils % (Manual) Basophils % (Manual) Nucleated RBC % Seg Neutrophils # Seg Neutrophils # Man Lymphocytes # (Manual) Monocytes # (Manual) Eosinophils # (Manual) Basophils # (Manual) PT INR Fibrinogen dRVVT Confirm Interp Factor V Activity POC ABG pH POC ABG pCO2 POC ABG pO2 ABG pO2 ABG HCO3 ABG Base Excess ABG Hemoglobin Oxyhemoglobin Sodium Potassium Chloride Carbon Dioxide BUN Creatinine Glucose POC Glucose Lactic Acid Calcium Ionized Calcium 6.0 H Phosphorus Magnesium Direct Bilirubin AST ALT Alkaline Phosphatase Lactate Dehydrogenase Troponin T C-Reactive Protein Total Protein Albumin Prealbumin Triglycerides Cholesterol LDL Cholesterol Direct HDL Cholesterol 25-OH Vitamin D Total 13 L PTH Intact 10.88 L Urine pH Urine WBC (Auto) Urine Creatinine Urine Total Protein Fluid Total Protein Vancomycin Trough Rheumatoid Factor Complement C4 Miscellaneous Test Crossmatch 02/16/17 02/16/17 02/16/17 05:12 06:00 12:39 WBC RBC Hgb Hct MCV MCH MCHC RDW Plt Count Lymph % (Auto) [place] % (Auto) Lymph # [place] # Baso # Seg Neutrophils % Seg Neuts % (Manual) Lymphocytes % (Manual) Monocytes % (Manual) Eosinophils % (Manual) Basophils % (Manual) Nucleated RBC % Seg Neutrophils # Seg Neutrophils # Man Lymphocytes # (Manual) Monocytes # (Manual) Eosinophils # (Manual) Basophils # (Manual) PT INR Fibrinogen dRVVT Confirm Interp Factor V Activity POC ABG pH POC ABG pCO2 POC ABG pO2 ABG pO2 ABG HCO3 ABG Base Excess ABG Hemoglobin Oxyhemoglobin Sodium Potassium Chloride Carbon Dioxide BUN 74 H Creatinine 1.7 H Glucose 102 H POC Glucose 125 H 109 H Lactic Acid Calcium Ionized Calcium Phosphorus 2.10 L D Magnesium Direct Bilirubin AST ALT Alkaline Phosphatase Lactate Dehydrogenase Troponin T C-Reactive Protein Total Protein Albumin Prealbumin Triglycerides Cholesterol LDL Cholesterol Direct HDL Cholesterol 25-OH Vitamin D Total PTH Intact Urine pH Urine WBC (Auto) Urine Creatinine Urine Total Protein Fluid Total Protein Vancomycin Trough Rheumatoid Factor Complement C4 Miscellaneous Test Crossmatch 02/16/17 02/16/17 02/17/17 17:31 23:57 05:30 WBC RBC Hgb Hct MCV MCH MCHC RDW Plt Count Lymph % (Auto) [place] % (Auto) Lymph # [place] # Baso # Seg Neutrophils % Seg Neuts % (Manual) Lymphocytes % (Manual) Monocytes % (Manual) Eosinophils % (Manual) Basophils % (Manual) Nucleated RBC % Seg Neutrophils # Seg Neutrophils # Man Lymphocytes # (Manual) Monocytes # (Manual) Eosinophils # (Manual) Basophils # (Manual) PT INR Fibrinogen dRVVT Confirm Interp Factor V Activity POC ABG pH POC ABG pCO2 POC ABG pO2 ABG pO2 ABG HCO3 ABG Base Excess ABG Hemoglobin Oxyhemoglobin Sodium Potassium Chloride Carbon Dioxide BUN Creatinine Glucose POC Glucose 106 H 127 H 122 H Lactic Acid Calcium Ionized Calcium Phosphorus Magnesium Direct Bilirubin AST ALT Alkaline Phosphatase Lactate Dehydrogenase Troponin T C-Reactive Protein Total Protein Albumin Prealbumin Triglycerides Cholesterol LDL Cholesterol Direct HDL Cholesterol 25-OH Vitamin D Total PTH Intact Urine pH Urine WBC (Auto) Urine Creatinine Urine Total Protein Fluid Total Protein Vancomycin Trough Rheumatoid Factor Complement C4 Miscellaneous Test Crossmatch 02/17/17 02/17/17 02/17/17 06:00 12:17 17:57 WBC RBC Hgb Hct MCV MCH MCHC RDW Plt Count Lymph % (Auto) [place] % (Auto) Lymph # [place] # Baso # Seg Neutrophils % Seg Neuts % (Manual) Lymphocytes % (Manual) Monocytes % (Manual) Eosinophils % (Manual) Basophils % (Manual) Nucleated RBC % Seg Neutrophils # Seg Neutrophils # Man Lymphocytes # (Manual) Monocytes # (Manual) Eosinophils # (Manual) Basophils # (Manual) PT INR Fibrinogen dRVVT Confirm Interp Factor V Activity POC ABG pH POC ABG pCO2 POC ABG pO2 ABG pO2 ABG HCO3 ABG Base Excess ABG Hemoglobin Oxyhemoglobin Sodium Potassium Chloride Carbon Dioxide BUN 94 H Creatinine 2.3 H Glucose 106 H POC Glucose 173 H 140 H Lactic Acid Calcium Ionized Calcium Phosphorus Magnesium Direct Bilirubin AST ALT Alkaline Phosphatase Lactate Dehydrogenase Troponin T C-Reactive Protein Total Protein Albumin Prealbumin Triglycerides Cholesterol LDL Cholesterol Direct HDL Cholesterol 25-OH Vitamin D Total PTH Intact Urine pH Urine WBC (Auto) Urine Creatinine Urine Total Protein Fluid Total Protein Vancomycin Trough Rheumatoid Factor Complement C4 Miscellaneous Test Crossmatch 02/18/17 02/18/17 02/18/17 00:20 05:30 06:14 WBC RBC Hgb Hct MCV MCH MCHC RDW Plt Count Lymph % (Auto) [place] % (Auto) Lymph # [place] # Baso # Seg Neutrophils % Seg Neuts % (Manual) Lymphocytes % (Manual) Monocytes % (Manual) Eosinophils % (Manual) Basophils % (Manual) Nucleated RBC % Seg Neutrophils # Seg Neutrophils # Man Lymphocytes # (Manual) Monocytes # (Manual) Eosinophils # (Manual) Basophils # (Manual) PT INR Fibrinogen dRVVT Confirm Interp Factor V Activity POC ABG pH POC ABG pCO2 POC ABG pO2 ABG pO2 ABG HCO3 ABG Base Excess ABG Hemoglobin Oxyhemoglobin Sodium 136 L Potassium Chloride 97.5 L Carbon Dioxide BUN 73 H Creatinine 1.9 H Glucose POC Glucose 132 H 106 H Lactic Acid Calcium Ionized Calcium Phosphorus Magnesium Direct Bilirubin AST ALT Alkaline Phosphatase Lactate Dehydrogenase Troponin T C-Reactive Protein Total Protein Albumin Prealbumin Triglycerides Cholesterol LDL Cholesterol Direct HDL Cholesterol 25-OH Vitamin D Total PTH Intact Urine pH Urine WBC (Auto) Urine Creatinine Urine Total Protein Fluid Total Protein Vancomycin Trough Rheumatoid Factor Complement C4 Miscellaneous Test Crossmatch 02/18/17 02/18/17 02/18/17 09:51 11:32 17:59 WBC 13.1 H RBC 2.77 L Hgb 7.6 L Hct 23.9 L MCV MCH MCHC RDW 19.0 H Plt Count Lymph % (Auto) [place] % (Auto) 11.1 H Lymph # [place] # 1.5 H Baso # Seg Neutrophils % Seg Neuts % (Manual) Lymphocytes % (Manual) Monocytes % (Manual) Eosinophils % (Manual) Basophils % (Manual) Nucleated RBC % Seg Neutrophils # 9.1 H Seg Neutrophils # Man Lymphocytes # (Manual) Monocytes # (Manual) Eosinophils # (Manual) Basophils # (Manual) PT INR Fibrinogen dRVVT Confirm Interp Factor V Activity POC ABG pH POC ABG pCO2 POC ABG pO2 ABG pO2 ABG HCO3 ABG Base Excess ABG Hemoglobin Oxyhemoglobin Sodium Potassium Chloride Carbon Dioxide BUN Creatinine Glucose POC Glucose 123 H 119 H Lactic Acid Calcium Ionized Calcium Phosphorus Magnesium Direct Bilirubin AST ALT Alkaline Phosphatase Lactate Dehydrogenase Troponin T C-Reactive Protein Total Protein Albumin Prealbumin Triglycerides Cholesterol LDL Cholesterol Direct HDL Cholesterol 25-OH Vitamin D Total PTH Intact Urine pH Urine WBC (Auto) Urine Creatinine Urine Total Protein Fluid Total Protein Vancomycin Trough Rheumatoid Factor Complement C4 Miscellaneous Test Crossmatch 02/18/17 02/19/17 02/19/17 23:47 05:36 09:45 WBC RBC Hgb Hct MCV MCH 27 L MCHC RDW 19.2 H Plt Count Lymph % (Auto) [place] % (Auto) Lymph # [place] # Baso # Seg Neutrophils % Seg Neuts % (Manual) Lymphocytes % (Manual) Monocytes % (Manual) Eosinophils % (Manual) Basophils % (Manual) Nucleated RBC % Seg Neutrophils # Seg Neutrophils # Man Lymphocytes # (Manual) Monocytes # (Manual) Eosinophils # (Manual) Basophils # (Manual) PT INR Fibrinogen dRVVT Confirm Interp Factor V Activity POC ABG pH POC ABG pCO2 POC ABG pO2 ABG pO2 ABG HCO3 ABG Base Excess ABG Hemoglobin Oxyhemoglobin Sodium Potassium Chloride Carbon Dioxide BUN Creatinine Glucose POC Glucose 110 H 121 H Lactic Acid Calcium Ionized Calcium Phosphorus Magnesium Direct Bilirubin AST ALT Alkaline Phosphatase Lactate Dehydrogenase Troponin T C-Reactive Protein Total Protein Albumin Prealbumin Triglycerides Cholesterol LDL Cholesterol Direct HDL Cholesterol 25-OH Vitamin D Total PTH Intact Urine pH Urine WBC (Auto) Urine Creatinine Urine Total Protein Fluid Total Protein Vancomycin Trough Rheumatoid Factor Complement C4 Miscellaneous Test Crossmatch 02/19/17 02/20/17 02/20/17 09:45 00:10 06:15 WBC RBC Hgb Hct MCV MCH MCHC RDW Plt Count Lymph % (Auto) [place] % (Auto) Lymph # [place] # Baso # Seg Neutrophils % Seg Neuts % (Manual) Lymphocytes % (Manual) Monocytes % (Manual) Eosinophils % (Manual) Basophils % (Manual) Nucleated RBC % Seg Neutrophils # Seg Neutrophils # Man Lymphocytes # (Manual) Monocytes # (Manual) Eosinophils # (Manual) Basophils # (Manual) PT INR Fibrinogen dRVVT Confirm Interp Factor V Activity POC ABG pH POC ABG pCO2 POC ABG pO2 ABG pO2 ABG HCO3 ABG Base Excess ABG Hemoglobin Oxyhemoglobin Sodium 136 L Potassium 5.1 H Chloride 97.6 L Carbon Dioxide 20 L 18 L BUN 110 H 135 H Creatinine 2.6 H 3.2 H Glucose 106 H 110 H POC Glucose 117 H Lactic Acid Calcium Ionized Calcium Phosphorus 4.70 H D 5.60 H Magnesium Direct Bilirubin AST ALT Alkaline Phosphatase Lactate Dehydrogenase Troponin T C-Reactive Protein Total Protein Albumin Prealbumin Triglycerides Cholesterol LDL Cholesterol Direct HDL Cholesterol 25-OH Vitamin D Total PTH Intact Urine pH Urine WBC (Auto) Urine Creatinine Urine Total Protein Fluid Total Protein Vancomycin Trough Rheumatoid Factor Complement C4 Miscellaneous Test Crossmatch 02/20/17 02/20/17 02/21/17 11:30 17:51 00:14 WBC RBC Hgb Hct MCV MCH MCHC RDW Plt Count Lymph % (Auto) [place] % (Auto) Lymph # [place] # Baso # Seg Neutrophils % Seg Neuts % (Manual) Lymphocytes % (Manual) Monocytes % (Manual) Eosinophils % (Manual) Basophils % (Manual) Nucleated RBC % Seg Neutrophils # Seg Neutrophils # Man Lymphocytes # (Manual) Monocytes # (Manual) Eosinophils # (Manual) Basophils # (Manual) PT INR Fibrinogen dRVVT Confirm Interp Factor V Activity POC ABG pH POC ABG pCO2 POC ABG pO2 ABG pO2 ABG HCO3 ABG Base Excess ABG Hemoglobin Oxyhemoglobin Sodium Potassium Chloride Carbon Dioxide BUN Creatinine Glucose POC Glucose 173 H 133 H 125 H Lactic Acid Calcium Ionized Calcium Phosphorus Magnesium Direct Bilirubin AST ALT Alkaline Phosphatase Lactate Dehydrogenase Troponin T C-Reactive Protein Total Protein Albumin Prealbumin Triglycerides Cholesterol LDL Cholesterol Direct HDL Cholesterol 25-OH Vitamin D Total PTH Intact Urine pH Urine WBC (Auto) Urine Creatinine Urine Total Protein Fluid Total Protein Vancomycin Trough Rheumatoid Factor Complement C4 Miscellaneous Test Crossmatch 02/21/17 02/21/17 02/21/17 04:09 05:03 11:58 WBC RBC Hgb Hct MCV MCH MCHC RDW Plt Count Lymph % (Auto) [place] % (Auto) Lymph # [place] # Baso # Seg Neutrophils % Seg Neuts % (Manual) Lymphocytes % (Manual) Monocytes % (Manual) Eosinophils % (Manual) Basophils % (Manual) Nucleated RBC % Seg Neutrophils # Seg Neutrophils # Man Lymphocytes # (Manual) Monocytes # (Manual) Eosinophils # (Manual) Basophils # (Manual) PT INR Fibrinogen dRVVT Confirm Interp Factor V Activity POC ABG pH POC ABG pCO2 POC ABG pO2 ABG pO2 ABG HCO3 ABG Base Excess ABG Hemoglobin Oxyhemoglobin Sodium 135 L Potassium Chloride Carbon Dioxide 20 L BUN 76 H Creatinine 2.0 H Glucose 125 H POC Glucose 134 H 139 H Lactic Acid Calcium Ionized Calcium Phosphorus Magnesium Direct Bilirubin AST ALT Alkaline Phosphatase Lactate Dehydrogenase Troponin T C-Reactive Protein Total Protein Albumin Prealbumin Triglycerides Cholesterol LDL Cholesterol Direct HDL Cholesterol 25-OH Vitamin D Total PTH Intact Urine pH Urine WBC (Auto) Urine Creatinine Urine Total Protein Fluid Total Protein Vancomycin Trough Rheumatoid Factor Complement C4 Miscellaneous Test Crossmatch 02/21/17 02/21/17 02/22/17 17:16 23:41 04:10 WBC RBC Hgb Hct MCV MCH MCHC RDW Plt Count Lymph % (Auto) [place] % (Auto) Lymph # [place] # Baso # Seg Neutrophils % Seg Neuts % (Manual) Lymphocytes % (Manual) Monocytes % (Manual) Eosinophils % (Manual) Basophils % (Manual) Nucleated RBC % Seg Neutrophils # Seg Neutrophils # Man Lymphocytes # (Manual) Monocytes # (Manual) Eosinophils # (Manual) Basophils # (Manual) PT INR Fibrinogen dRVVT Confirm Interp Factor V Activity POC ABG pH POC ABG pCO2 POC ABG pO2 ABG pO2 ABG HCO3 ABG Base Excess ABG Hemoglobin Oxyhemoglobin Sodium 135 L Potassium Chloride 97.7 L Carbon Dioxide 21 L BUN 101 H Creatinine 2.5 H Glucose 116 H POC Glucose 120 H 128 H Lactic Acid Calcium Ionized Calcium Phosphorus Magnesium Direct Bilirubin AST ALT Alkaline Phosphatase Lactate Dehydrogenase Troponin T C-Reactive Protein Total Protein Albumin 1.3 L Prealbumin Triglycerides Cholesterol LDL Cholesterol Direct HDL Cholesterol 25-OH Vitamin D Total PTH Intact Urine pH Urine WBC (Auto) Urine Creatinine Urine Total Protein Fluid Total Protein Vancomycin Trough Rheumatoid Factor Complement C4 Miscellaneous Test Crossmatch 02/22/17 02/22/17 02/22/17 06:03 11:38 18:19 WBC RBC Hgb Hct MCV MCH MCHC RDW Plt Count Lymph % (Auto) [place] % (Auto) Lymph # [place] # Baso # Seg Neutrophils % Seg Neuts % (Manual) Lymphocytes % (Manual) Monocytes % (Manual) Eosinophils % (Manual) Basophils % (Manual) Nucleated RBC % Seg Neutrophils # Seg Neutrophils # Man Lymphocytes # (Manual) Monocytes # (Manual) Eosinophils # (Manual) Basophils # (Manual) PT INR Fibrinogen dRVVT Confirm Interp Factor V Activity POC ABG pH POC ABG pCO2 POC ABG pO2 ABG pO2 ABG HCO3 ABG Base Excess ABG Hemoglobin Oxyhemoglobin Sodium Potassium Chloride Carbon Dioxide BUN Creatinine Glucose POC Glucose 126 H 147 H 121 H Lactic Acid Calcium Ionized Calcium Phosphorus Magnesium Direct Bilirubin AST ALT Alkaline Phosphatase Lactate Dehydrogenase Troponin T C-Reactive Protein Total Protein Albumin Prealbumin Triglycerides Cholesterol LDL Cholesterol Direct HDL Cholesterol 25-OH Vitamin D Total PTH Intact Urine pH Urine WBC (Auto) Urine Creatinine Urine Total Protein Fluid Total Protein Vancomycin Trough Rheumatoid Factor Complement C4 Miscellaneous Test Crossmatch 02/23/17 02/23/17 02/23/17 05:00 05:46 12:27 WBC RBC Hgb Hct MCV MCH MCHC RDW Plt Count Lymph % (Auto) [place] % (Auto) Lymph # [place] # Baso # Seg Neutrophils % Seg Neuts % (Manual) Lymphocytes % (Manual) Monocytes % (Manual) Eosinophils % (Manual) Basophils % (Manual) Nucleated RBC % Seg Neutrophils # Seg Neutrophils # Man Lymphocytes # (Manual) Monocytes # (Manual) Eosinophils # (Manual) Basophils # (Manual) PT INR Fibrinogen dRVVT Confirm Interp Factor V Activity POC ABG pH POC ABG pCO2 POC ABG pO2 ABG pO2 ABG HCO3 ABG Base Excess ABG Hemoglobin Oxyhemoglobin Sodium 136 L Potassium Chloride 97.1 L Carbon Dioxide BUN 50 H Creatinine 1.5 H Glucose POC Glucose 110 H 115 H Lactic Acid Calcium 8.1 L Ionized Calcium Phosphorus 1.90 L D Magnesium Direct Bilirubin AST ALT Alkaline Phosphatase Lactate Dehydrogenase Troponin T C-Reactive Protein Total Protein Albumin Prealbumin Triglycerides Cholesterol LDL Cholesterol Direct HDL Cholesterol 25-OH Vitamin D Total PTH Intact Urine pH Urine WBC (Auto) Urine Creatinine Urine Total Protein Fluid Total Protein Vancomycin Trough Rheumatoid Factor Complement C4 Miscellaneous Test Crossmatch 02/23/17 02/23/17 02/24/17 18:02 23:18 05:04 WBC RBC Hgb Hct MCV MCH MCHC RDW Plt Count Lymph % (Auto) [place] % (Auto) Lymph # [place] # Baso # Seg Neutrophils % Seg Neuts % (Manual) Lymphocytes % (Manual) Monocytes % (Manual) Eosinophils % (Manual) Basophils % (Manual) Nucleated RBC % Seg Neutrophils # Seg Neutrophils # Man Lymphocytes # (Manual) Monocytes # (Manual) Eosinophils # (Manual) Basophils # (Manual) PT INR Fibrinogen dRVVT Confirm Interp Factor V Activity POC ABG pH POC ABG pCO2 POC ABG pO2 ABG pO2 ABG HCO3 ABG Base Excess ABG Hemoglobin Oxyhemoglobin Sodium Potassium Chloride Carbon Dioxide BUN Creatinine Glucose POC Glucose 111 H 126 H 121 H Lactic Acid Calcium Ionized Calcium Phosphorus Magnesium Direct Bilirubin AST ALT Alkaline Phosphatase Lactate Dehydrogenase Troponin T C-Reactive Protein Total Protein Albumin Prealbumin Triglycerides Cholesterol LDL Cholesterol Direct HDL Cholesterol 25-OH Vitamin D Total PTH Intact Urine pH Urine WBC (Auto) Urine Creatinine Urine Total Protein Fluid Total Protein Vancomycin Trough Rheumatoid Factor Complement C4 Miscellaneous Test Crossmatch 02/24/17 02/24/17 02/24/17 05:20 10:05 11:34 WBC RBC 2.95 L Hgb 8.4 L Hct 25.7 L MCV MCH MCHC RDW 20.8 H Plt Count Lymph % (Auto) [place] % (Auto) Lymph # [place] # Baso # Seg Neutrophils % 71.8 H Seg Neuts % (Manual) Lymphocytes % (Manual) Monocytes % (Manual) Eosinophils % (Manual) Basophils % (Manual) Nucleated RBC % Seg Neutrophils # Seg Neutrophils # Man Lymphocytes # (Manual) Monocytes # (Manual) Eosinophils # (Manual) Basophils # (Manual) PT INR Fibrinogen dRVVT Confirm Interp Factor V Activity POC ABG pH POC ABG pCO2 POC ABG pO2 ABG pO2 ABG HCO3 ABG Base Excess ABG Hemoglobin Oxyhemoglobin Sodium 136 L Potassium Chloride 95.5 L Carbon Dioxide BUN 76 H Creatinine 2.2 H Glucose 109 H POC Glucose 123 H Lactic Acid Calcium Ionized Calcium Phosphorus Magnesium Direct Bilirubin AST ALT Alkaline Phosphatase Lactate Dehydrogenase Troponin T C-Reactive Protein Total Protein Albumin Prealbumin Triglycerides Cholesterol LDL Cholesterol Direct HDL Cholesterol 25-OH Vitamin D Total PTH Intact Urine pH Urine WBC (Auto) Urine Creatinine Urine Total Protein Fluid Total Protein Vancomycin Trough Rheumatoid Factor Complement C4 Miscellaneous Test Crossmatch 02/24/17 02/24/17 02/25/17 17:43 23:02 05:00 WBC RBC Hgb Hct MCV MCH MCHC RDW Plt Count Lymph % (Auto) [place] % (Auto) Lymph # [place] # Baso # Seg Neutrophils % Seg Neuts % (Manual) Lymphocytes % (Manual) Monocytes % (Manual) Eosinophils % (Manual) Basophils % (Manual) Nucleated RBC % Seg Neutrophils # Seg Neutrophils # Man Lymphocytes # (Manual) Monocytes # (Manual) Eosinophils # (Manual) Basophils # (Manual) PT INR Fibrinogen dRVVT Confirm Interp Factor V Activity POC ABG pH POC ABG pCO2 POC ABG pO2 ABG pO2 ABG HCO3 ABG Base Excess ABG Hemoglobin Oxyhemoglobin Sodium Potassium Chloride 96.8 L Carbon Dioxide BUN 94 H Creatinine 2.8 H Glucose 118 H POC Glucose 128 H 144 H Lactic Acid Calcium Ionized Calcium Phosphorus Magnesium Direct Bilirubin AST ALT Alkaline Phosphatase Lactate Dehydrogenase Troponin T C-Reactive Protein Total Protein Albumin Prealbumin Triglycerides Cholesterol LDL Cholesterol Direct HDL Cholesterol 25-OH Vitamin D Total PTH Intact Urine pH Urine WBC (Auto) Urine Creatinine Urine Total Protein Fluid Total Protein Vancomycin Trough Rheumatoid Factor Complement C4 Miscellaneous Test Crossmatch 02/25/17 02/25/17 02/25/17 05:32 11:44 18:18 WBC RBC Hgb Hct MCV MCH MCHC RDW Plt Count Lymph % (Auto) [place] % (Auto) Lymph # [place] # Baso # Seg Neutrophils % Seg Neuts % (Manual) Lymphocytes % (Manual) Monocytes % (Manual) Eosinophils % (Manual) Basophils % (Manual) Nucleated RBC % Seg Neutrophils # Seg Neutrophils # Man Lymphocytes # (Manual) Monocytes # (Manual) Eosinophils # (Manual) Basophils # (Manual) PT INR Fibrinogen dRVVT Confirm Interp Factor V Activity POC ABG pH POC ABG pCO2 POC ABG pO2 ABG pO2 ABG HCO3 ABG Base Excess ABG Hemoglobin Oxyhemoglobin Sodium Potassium Chloride Carbon Dioxide BUN Creatinine Glucose POC Glucose 118 H 106 H 210 H Lactic Acid Calcium Ionized Calcium Phosphorus Magnesium Direct Bilirubin AST ALT Alkaline Phosphatase Lactate Dehydrogenase Troponin T C-Reactive Protein Total Protein Albumin Prealbumin Triglycerides Cholesterol LDL Cholesterol Direct HDL Cholesterol 25-OH Vitamin D Total PTH Intact Urine pH Urine WBC (Auto) Urine Creatinine Urine Total Protein Fluid Total Protein Vancomycin Trough Rheumatoid Factor Complement C4 Miscellaneous Test Crossmatch 02/26/17 02/26/17 02/26/17 00:07 05:14 12:07 WBC RBC Hgb Hct MCV MCH MCHC RDW Plt Count Lymph % (Auto) [place] % (Auto) Lymph # [place] # Baso # Seg Neutrophils % Seg Neuts % (Manual) Lymphocytes % (Manual) Monocytes % (Manual) Eosinophils % (Manual) Basophils % (Manual) Nucleated RBC % Seg Neutrophils # Seg Neutrophils # Man Lymphocytes # (Manual) Monocytes # (Manual) Eosinophils # (Manual) Basophils # (Manual) PT INR Fibrinogen dRVVT Confirm Interp Factor V Activity POC ABG pH POC ABG pCO2 POC ABG pO2 ABG pO2 ABG HCO3 ABG Base Excess ABG Hemoglobin Oxyhemoglobin Sodium Potassium Chloride Carbon Dioxide BUN Creatinine Glucose POC Glucose 136 H 142 H 132 H Lactic Acid Calcium Ionized Calcium Phosphorus Magnesium Direct Bilirubin AST ALT Alkaline Phosphatase Lactate Dehydrogenase Troponin T C-Reactive Protein Total Protein Albumin Prealbumin Triglycerides Cholesterol LDL Cholesterol Direct HDL Cholesterol 25-OH Vitamin D Total PTH Intact Urine pH Urine WBC (Auto) Urine Creatinine Urine Total Protein Fluid Total Protein Vancomycin Trough Rheumatoid Factor Complement C4 Miscellaneous Test Crossmatch 02/26/17 02/26/17 02/27/17 18:35 23:54 06:25 WBC RBC Hgb Hct MCV MCH MCHC RDW Plt Count Lymph % (Auto) [place] % (Auto) Lymph # [place] # Baso # Seg Neutrophils % Seg Neuts % (Manual) Lymphocytes % (Manual) Monocytes % (Manual) Eosinophils % (Manual) Basophils % (Manual) Nucleated RBC % Seg Neutrophils # Seg Neutrophils # Man Lymphocytes # (Manual) Monocytes # (Manual) Eosinophils # (Manual) Basophils # (Manual) PT INR Fibrinogen dRVVT Confirm Interp Factor V Activity POC ABG pH POC ABG pCO2 POC ABG pO2 ABG pO2 ABG HCO3 ABG Base Excess ABG Hemoglobin Oxyhemoglobin Sodium Potassium Chloride Carbon Dioxide BUN Creatinine Glucose POC Glucose 155 H 150 H 138 H Lactic Acid Calcium Ionized Calcium Phosphorus Magnesium Direct Bilirubin AST ALT Alkaline Phosphatase Lactate Dehydrogenase Troponin T C-Reactive Protein Total Protein Albumin Prealbumin Triglycerides Cholesterol LDL Cholesterol Direct HDL Cholesterol 25-OH Vitamin D Total PTH Intact Urine pH Urine WBC (Auto) Urine Creatinine Urine Total Protein Fluid Total Protein Vancomycin Trough Rheumatoid Factor Complement C4 Miscellaneous Test Crossmatch 02/27/17 02/27/17 02/27/17 08:50 11:50 17:38 WBC RBC Hgb Hct MCV MCH MCHC RDW Plt Count Lymph % (Auto) [place] % (Auto) Lymph # [place] # Baso # Seg Neutrophils % Seg Neuts % (Manual) Lymphocytes % (Manual) Monocytes % (Manual) Eosinophils % (Manual) Basophils % (Manual) Nucleated RBC % Seg Neutrophils # Seg Neutrophils # Man Lymphocytes # (Manual) Monocytes # (Manual) Eosinophils # (Manual) Basophils # (Manual) PT INR Fibrinogen dRVVT Confirm Interp Factor V Activity POC ABG pH POC ABG pCO2 POC ABG pO2 ABG pO2 ABG HCO3 ABG Base Excess ABG Hemoglobin Oxyhemoglobin Sodium Potassium 3.2 L Chloride Carbon Dioxide BUN 95 H Creatinine 2.7 H Glucose 179 H POC Glucose 150 H 133 H Lactic Acid Calcium Ionized Calcium Phosphorus Magnesium Direct Bilirubin AST ALT Alkaline Phosphatase Lactate Dehydrogenase Troponin T C-Reactive Protein Total Protein Albumin Prealbumin Triglycerides Cholesterol LDL Cholesterol Direct HDL Cholesterol 25-OH Vitamin D Total PTH Intact Urine pH Urine WBC (Auto) Urine Creatinine Urine Total Protein Fluid Total Protein Vancomycin Trough Rheumatoid Factor Complement C4 Miscellaneous Test Crossmatch 02/27/17 02/28/17 02/28/17 23:55 05:23 06:10 WBC RBC Hgb Hct MCV MCH MCHC RDW Plt Count Lymph % (Auto) [place] % (Auto) Lymph # [place] # Baso # Seg Neutrophils % Seg Neuts % (Manual) Lymphocytes % (Manual) Monocytes % (Manual) Eosinophils % (Manual) Basophils % (Manual) Nucleated RBC % Seg Neutrophils # Seg Neutrophils # Man Lymphocytes # (Manual) Monocytes # (Manual) Eosinophils # (Manual) Basophils # (Manual) PT INR Fibrinogen dRVVT Confirm Interp Factor V Activity POC ABG pH POC ABG pCO2 POC ABG pO2 ABG pO2 ABG HCO3 ABG Base Excess ABG Hemoglobin Oxyhemoglobin Sodium 134 L Potassium 3.0 L Chloride 94.9 L Carbon Dioxide BUN 53 H Creatinine 1.9 H Glucose 138 H POC Glucose 134 H 164 H Lactic Acid Calcium Ionized Calcium Phosphorus 2.00 L D Magnesium Direct Bilirubin AST ALT Alkaline Phosphatase Lactate Dehydrogenase Troponin T C-Reactive Protein Total Protein Albumin Prealbumin Triglycerides Cholesterol LDL Cholesterol Direct HDL Cholesterol 25-OH Vitamin D Total PTH Intact Urine pH Urine WBC (Auto) Urine Creatinine Urine Total Protein Fluid Total Protein Vancomycin Trough Rheumatoid Factor Complement C4 Miscellaneous Test Crossmatch 02/28/17 02/28/17 02/28/17 12:18 17:54 23:47 WBC RBC Hgb Hct MCV MCH MCHC RDW Plt Count Lymph % (Auto) [place] % (Auto) Lymph # [place] # Baso # Seg Neutrophils % Seg Neuts % (Manual) Lymphocytes % (Manual) Monocytes % (Manual) Eosinophils % (Manual) Basophils % (Manual) Nucleated RBC % Seg Neutrophils # Seg Neutrophils # Man Lymphocytes # (Manual) Monocytes # (Manual) Eosinophils # (Manual) Basophils # (Manual) PT INR Fibrinogen dRVVT Confirm Interp Factor V Activity POC ABG pH POC ABG pCO2 POC ABG pO2 ABG pO2 ABG HCO3 ABG Base Excess ABG Hemoglobin Oxyhemoglobin Sodium Potassium Chloride Carbon Dioxide BUN Creatinine Glucose POC Glucose 135 H 140 H 144 H Lactic Acid Calcium Ionized Calcium Phosphorus Magnesium Direct Bilirubin AST ALT Alkaline Phosphatase Lactate Dehydrogenase Troponin T C-Reactive Protein Total Protein Albumin Prealbumin Triglycerides Cholesterol LDL Cholesterol Direct HDL Cholesterol 25-OH Vitamin D Total PTH Intact Urine pH Urine WBC (Auto) Urine Creatinine Urine Total Protein Fluid Total Protein Vancomycin Trough Rheumatoid Factor Complement C4 Miscellaneous Test Crossmatch 03/01/17 03/01/17 03/01/17 04:00 12:02 17:13 WBC RBC Hgb Hct MCV MCH MCHC RDW Plt Count Lymph % (Auto) [place] % (Auto) Lymph # [place] # Baso # Seg Neutrophils % Seg Neuts % (Manual) Lymphocytes % (Manual) Monocytes % (Manual) Eosinophils % (Manual) Basophils % (Manual) Nucleated RBC % Seg Neutrophils # Seg Neutrophils # Man Lymphocytes # (Manual) Monocytes # (Manual) Eosinophils # (Manual) Basophils # (Manual) PT INR Fibrinogen dRVVT Confirm Interp Factor V Activity POC ABG pH POC ABG pCO2 POC ABG pO2 ABG pO2 ABG HCO3 ABG Base Excess ABG Hemoglobin Oxyhemoglobin Sodium Potassium 3.0 L Chloride 97.0 L Carbon Dioxide BUN 81 H Creatinine 2.6 H Glucose 121 H POC Glucose 165 H 126 H Lactic Acid Calcium Ionized Calcium Phosphorus Magnesium Direct Bilirubin AST ALT Alkaline Phosphatase Lactate Dehydrogenase Troponin T C-Reactive Protein Total Protein Albumin Prealbumin Triglycerides Cholesterol LDL Cholesterol Direct HDL Cholesterol 25-OH Vitamin D Total PTH Intact Urine pH Urine WBC (Auto) Urine Creatinine Urine Total Protein Fluid Total Protein Vancomycin Trough Rheumatoid Factor Complement C4 Miscellaneous Test Crossmatch 03/02/17 03/02/17 03/02/17 00:10 03:05 05:20 WBC RBC Hgb Hct MCV MCH MCHC RDW Plt Count Lymph % (Auto) [place] % (Auto) Lymph # [place] # Baso # Seg Neutrophils % Seg Neuts % (Manual) Lymphocytes % (Manual) Monocytes % (Manual) Eosinophils % (Manual) Basophils % (Manual) Nucleated RBC % Seg Neutrophils # Seg Neutrophils # Man Lymphocytes # (Manual) Monocytes # (Manual) Eosinophils # (Manual) Basophils # (Manual) PT INR Fibrinogen dRVVT Confirm Interp Factor V Activity POC ABG pH POC ABG pCO2 POC ABG pO2 ABG pO2 ABG HCO3 ABG Base Excess ABG Hemoglobin Oxyhemoglobin Sodium Potassium 3.0 L Chloride Carbon Dioxide BUN 41 H Creatinine 1.6 H Glucose 130 H POC Glucose 129 H 173 H Lactic Acid Calcium Ionized Calcium Phosphorus 1.70 L D Magnesium 1.40 L Direct Bilirubin AST ALT Alkaline Phosphatase Lactate Dehydrogenase Troponin T C-Reactive Protein Total Protein Albumin Prealbumin Triglycerides Cholesterol LDL Cholesterol Direct HDL Cholesterol 25-OH Vitamin D Total PTH Intact Urine pH Urine WBC (Auto) Urine Creatinine Urine Total Protein Fluid Total Protein Vancomycin Trough Rheumatoid Factor Complement C4 Miscellaneous Test Crossmatch 03/02/17 03/02/17 03/02/17 11:49 16:38 23:46 WBC RBC Hgb Hct MCV MCH MCHC RDW Plt Count Lymph % (Auto) [place] % (Auto) Lymph # [place] # Baso # Seg Neutrophils % Seg Neuts % (Manual) Lymphocytes % (Manual) Monocytes % (Manual) Eosinophils % (Manual) Basophils % (Manual) Nucleated RBC % Seg Neutrophils # Seg Neutrophils # Man Lymphocytes # (Manual) Monocytes # (Manual) Eosinophils # (Manual) Basophils # (Manual) PT INR Fibrinogen dRVVT Confirm Interp Factor V Activity POC ABG pH POC ABG pCO2 POC ABG pO2 ABG pO2 ABG HCO3 ABG Base Excess ABG Hemoglobin Oxyhemoglobin Sodium Potassium Chloride Carbon Dioxide BUN Creatinine Glucose POC Glucose 129 H 141 H 119 H Lactic Acid Calcium Ionized Calcium Phosphorus Magnesium Direct Bilirubin AST ALT Alkaline Phosphatase Lactate Dehydrogenase Troponin T C-Reactive Protein Total Protein Albumin Prealbumin Triglycerides Cholesterol LDL Cholesterol Direct HDL Cholesterol 25-OH Vitamin D Total PTH Intact Urine pH Urine WBC (Auto) Urine Creatinine Urine Total Protein Fluid Total Protein Vancomycin Trough Rheumatoid Factor Complement C4 Miscellaneous Test Crossmatch 03/03/17 03/03/17 03/03/17 04:00 11:59 18:08 WBC RBC Hgb Hct MCV MCH MCHC RDW Plt Count Lymph % (Auto) [place] % (Auto) Lymph # [place] # Baso # Seg Neutrophils % Seg Neuts % (Manual) Lymphocytes % (Manual) Monocytes % (Manual) Eosinophils % (Manual) Basophils % (Manual) Nucleated RBC % Seg Neutrophils # Seg Neutrophils # Man Lymphocytes # (Manual) Monocytes # (Manual) Eosinophils # (Manual) Basophils # (Manual) PT INR Fibrinogen dRVVT Confirm Interp Factor V Activity POC ABG pH POC ABG pCO2 POC ABG pO2 ABG pO2 ABG HCO3 ABG Base Excess ABG Hemoglobin Oxyhemoglobin Sodium Potassium Chloride Carbon Dioxide BUN 70 H Creatinine 2.3 H Glucose POC Glucose 125 H 131 H Lactic Acid Calcium Ionized Calcium Phosphorus Magnesium Direct Bilirubin AST ALT Alkaline Phosphatase Lactate Dehydrogenase Troponin T C-Reactive Protein Total Protein Albumin Prealbumin Triglycerides Cholesterol LDL Cholesterol Direct HDL Cholesterol 25-OH Vitamin D Total PTH Intact Urine pH Urine WBC (Auto) Urine Creatinine Urine Total Protein Fluid Total Protein Vancomycin Trough Rheumatoid Factor Complement C4 Miscellaneous Test Crossmatch 03/03/17 03/03/17 03/04/17 20:17 23:43 05:21 WBC RBC Hgb Hct MCV MCH MCHC RDW Plt Count Lymph % (Auto) [place] % (Auto) Lymph # [place] # Baso # Seg Neutrophils % Seg Neuts % (Manual) Lymphocytes % (Manual) Monocytes % (Manual) Eosinophils % (Manual) Basophils % (Manual) Nucleated RBC % Seg Neutrophils # Seg Neutrophils # Man Lymphocytes # (Manual) Monocytes # (Manual) Eosinophils # (Manual) Basophils # (Manual) PT INR Fibrinogen dRVVT Confirm Interp Factor V Activity POC ABG pH 7.518 H POC ABG pCO2 28.8 L POC ABG pO2 61 L ABG pO2 ABG HCO3 ABG Base Excess ABG Hemoglobin Oxyhemoglobin Sodium Potassium Chloride Carbon Dioxide BUN Creatinine Glucose POC Glucose 122 H 130 H Lactic Acid Calcium Ionized Calcium Phosphorus Magnesium Direct Bilirubin AST ALT Alkaline Phosphatase Lactate Dehydrogenase Troponin T C-Reactive Protein Total Protein Albumin Prealbumin Triglycerides Cholesterol LDL Cholesterol Direct HDL Cholesterol 25-OH Vitamin D Total PTH Intact Urine pH Urine WBC (Auto) Urine Creatinine Urine Total Protein Fluid Total Protein Vancomycin Trough Rheumatoid Factor Complement C4 Miscellaneous Test Crossmatch 03/04/17 03/05/17 03/06/17 06:10 06:15 03:52 WBC RBC Hgb Hct MCV MCH MCHC RDW Plt Count Lymph % (Auto) [place] % (Auto) Lymph # [place] # Baso # Seg Neutrophils % Seg Neuts % (Manual) Lymphocytes % (Manual) Monocytes % (Manual) Eosinophils % (Manual) Basophils % (Manual) Nucleated RBC % Seg Neutrophils # Seg Neutrophils # Man Lymphocytes # (Manual) Monocytes # (Manual) Eosinophils # (Manual) Basophils # (Manual) PT INR Fibrinogen dRVVT Confirm Interp Factor V Activity POC ABG pH POC ABG pCO2 POC ABG pO2 ABG pO2 ABG HCO3 ABG Base Excess ABG Hemoglobin Oxyhemoglobin Sodium 135 L 136 L Potassium 5.2 H 5.9 H Chloride 95.8 L 97.7 L 96.0 L Carbon Dioxide 21 L 21 L BUN 40 H 56 H 70 H Creatinine 1.7 H 2.4 H 3.0 H Glucose 118 H POC Glucose Lactic Acid Calcium Ionized Calcium Phosphorus 4.80 H D 6.00 H D Magnesium 2.60 H Direct Bilirubin AST ALT Alkaline Phosphatase 165 H Lactate Dehydrogenase Troponin T C-Reactive Protein Total Protein Albumin 1.5 L Prealbumin Triglycerides Cholesterol LDL Cholesterol Direct HDL Cholesterol 25-OH Vitamin D Total PTH Intact Urine pH Urine WBC (Auto) Urine Creatinine Urine Total Protein Fluid Total Protein Vancomycin Trough Rheumatoid Factor Complement C4 Miscellaneous Test Crossmatch 03/06/17 03/06/17 03/06/17 11:19 18:40 23:39 WBC RBC Hgb Hct MCV MCH MCHC RDW Plt Count Lymph % (Auto) [place] % (Auto) Lymph # [place] # Baso # Seg Neutrophils % Seg Neuts % (Manual) Lymphocytes % (Manual) Monocytes % (Manual) Eosinophils % (Manual) Basophils % (Manual) Nucleated RBC % Seg Neutrophils # Seg Neutrophils # Man Lymphocytes # (Manual) Monocytes # (Manual) Eosinophils # (Manual) Basophils # (Manual) PT INR Fibrinogen dRVVT Confirm Interp Factor V Activity POC ABG pH POC ABG pCO2 POC ABG pO2 ABG pO2 ABG HCO3 ABG Base Excess ABG Hemoglobin Oxyhemoglobin Sodium Potassium Chloride Carbon Dioxide BUN Creatinine Glucose POC Glucose 108 H 110 H 156 H Lactic Acid Calcium Ionized Calcium Phosphorus Magnesium Direct Bilirubin AST ALT Alkaline Phosphatase Lactate Dehydrogenase Troponin T C-Reactive Protein Total Protein Albumin Prealbumin Triglycerides Cholesterol LDL Cholesterol Direct HDL Cholesterol 25-OH Vitamin D Total PTH Intact Urine pH Urine WBC (Auto) Urine Creatinine Urine Total Protein Fluid Total Protein Vancomycin Trough Rheumatoid Factor Complement C4 Miscellaneous Test Crossmatch 03/07/17 03/07/17 03/07/17 06:04 11:56 23:31 WBC RBC Hgb Hct MCV MCH MCHC RDW Plt Count Lymph % (Auto) [place] % (Auto) Lymph # [place] # Baso # Seg Neutrophils % Seg Neuts % (Manual) Lymphocytes % (Manual) Monocytes % (Manual) Eosinophils % (Manual) Basophils % (Manual) Nucleated RBC % Seg Neutrophils # Seg Neutrophils # Man Lymphocytes # (Manual) Monocytes # (Manual) Eosinophils # (Manual) Basophils # (Manual) PT INR Fibrinogen dRVVT Confirm Interp Factor V Activity POC ABG pH POC ABG pCO2 POC ABG pO2 ABG pO2 ABG HCO3 ABG Base Excess ABG Hemoglobin Oxyhemoglobin Sodium Potassium Chloride 97.5 L Carbon Dioxide BUN 28 H Creatinine 1.5 H Glucose POC Glucose 106 H 131 H Lactic Acid Calcium 7.9 L Ionized Calcium Phosphorus Magnesium Direct Bilirubin AST ALT Alkaline Phosphatase Lactate Dehydrogenase Troponin T C-Reactive Protein Total Protein Albumin Prealbumin Triglycerides Cholesterol LDL Cholesterol Direct HDL Cholesterol 25-OH Vitamin D Total PTH Intact Urine pH Urine WBC (Auto) Urine Creatinine Urine Total Protein Fluid Total Protein Vancomycin Trough Rheumatoid Factor Complement C4 Miscellaneous Test Crossmatch 03/08/17 03/08/17 03/08/17 05:15 05:38 11:50 WBC RBC Hgb Hct MCV MCH MCHC RDW Plt Count Lymph % (Auto) [place] % (Auto) Lymph # [place] # Baso # Seg Neutrophils % Seg Neuts % (Manual) Lymphocytes % (Manual) Monocytes % (Manual) Eosinophils % (Manual) Basophils % (Manual) Nucleated RBC % Seg Neutrophils # Seg Neutrophils # Man Lymphocytes # (Manual) Monocytes # (Manual) Eosinophils # (Manual) Basophils # (Manual) PT INR Fibrinogen dRVVT Confirm Interp Factor V Activity POC ABG pH POC ABG pCO2 POC ABG pO2 ABG pO2 ABG HCO3 ABG Base Excess ABG Hemoglobin Oxyhemoglobin Sodium 135 L Potassium Chloride 96.6 L Carbon Dioxide 20 L BUN 46 H Creatinine 2.3 H D Glucose 117 H POC Glucose 156 H 131 H Lactic Acid Calcium Ionized Calcium Phosphorus Magnesium Direct Bilirubin AST ALT Alkaline Phosphatase Lactate Dehydrogenase Troponin T C-Reactive Protein Total Protein Albumin Prealbumin Triglycerides Cholesterol LDL Cholesterol Direct HDL Cholesterol 25-OH Vitamin D Total PTH Intact Urine pH Urine WBC (Auto) Urine Creatinine Urine Total Protein Fluid Total Protein Vancomycin Trough Rheumatoid Factor Complement C4 Miscellaneous Test Crossmatch 03/08/17 03/09/17 03/09/17 23:34 04:42 05:20 WBC RBC Hgb Hct MCV MCH MCHC RDW Plt Count Lymph % (Auto) [place] % (Auto) Lymph # [place] # Baso # Seg Neutrophils % Seg Neuts % (Manual) Lymphocytes % (Manual) Monocytes % (Manual) Eosinophils % (Manual) Basophils % (Manual) Nucleated RBC % Seg Neutrophils # Seg Neutrophils # Man Lymphocytes # (Manual) Monocytes # (Manual) Eosinophils # (Manual) Basophils # (Manual) PT INR Fibrinogen dRVVT Confirm Interp Factor V Activity POC ABG pH POC ABG pCO2 POC ABG pO2 ABG pO2 ABG HCO3 ABG Base Excess ABG Hemoglobin Oxyhemoglobin Sodium Potassium 3.2 L Chloride Carbon Dioxide BUN 30 H Creatinine 1.7 H Glucose 112 H POC Glucose 125 H 128 H Lactic Acid Calcium 8.2 L Ionized Calcium Phosphorus 1.80 L D Magnesium 1.40 L Direct Bilirubin AST ALT Alkaline Phosphatase Lactate Dehydrogenase Troponin T C-Reactive Protein Total Protein Albumin Prealbumin Triglycerides Cholesterol LDL Cholesterol Direct HDL Cholesterol 25-OH Vitamin D Total PTH Intact Urine pH Urine WBC (Auto) Urine Creatinine Urine Total Protein Fluid Total Protein Vancomycin Trough Rheumatoid Factor Complement C4 Miscellaneous Test Crossmatch 03/09/17 03/09/17 03/10/17 11:48 17:38 00:08 WBC RBC Hgb Hct MCV MCH MCHC RDW Plt Count Lymph % (Auto) [place] % (Auto) Lymph # [place] # Baso # Seg Neutrophils % Seg Neuts % (Manual) Lymphocytes % (Manual) Monocytes % (Manual) Eosinophils % (Manual) Basophils % (Manual) Nucleated RBC % Seg Neutrophils # Seg Neutrophils # Man Lymphocytes # (Manual) Monocytes # (Manual) Eosinophils # (Manual) Basophils # (Manual) PT INR Fibrinogen dRVVT Confirm Interp Factor V Activity POC ABG pH POC ABG pCO2 POC ABG pO2 ABG pO2 ABG HCO3 ABG Base Excess ABG Hemoglobin Oxyhemoglobin Sodium Potassium Chloride Carbon Dioxide BUN Creatinine Glucose POC Glucose 146 H 140 H 137 H Lactic Acid Calcium Ionized Calcium Phosphorus Magnesium Direct Bilirubin AST ALT Alkaline Phosphatase Lactate Dehydrogenase Troponin T C-Reactive Protein Total Protein Albumin Prealbumin Triglycerides Cholesterol LDL Cholesterol Direct HDL Cholesterol 25-OH Vitamin D Total PTH Intact Urine pH Urine WBC (Auto) Urine Creatinine Urine Total Protein Fluid Total Protein Vancomycin Trough Rheumatoid Factor Complement C4 Miscellaneous Test Crossmatch 03/10/17 03/10/17 03/10/17 04:46 06:37 11:22 WBC RBC Hgb Hct MCV MCH MCHC RDW Plt Count Lymph % (Auto) [place] % (Auto) Lymph # [place] # Baso # Seg Neutrophils % Seg Neuts % (Manual) Lymphocytes % (Manual) Monocytes % (Manual) Eosinophils % (Manual) Basophils % (Manual) Nucleated RBC % Seg Neutrophils # Seg Neutrophils # Man Lymphocytes # (Manual) Monocytes # (Manual) Eosinophils # (Manual) Basophils # (Manual) PT INR Fibrinogen dRVVT Confirm Interp Factor V Activity POC ABG pH POC ABG pCO2 POC ABG pO2 ABG pO2 ABG HCO3 ABG Base Excess ABG Hemoglobin Oxyhemoglobin Sodium 135 L Potassium Chloride 96.3 L Carbon Dioxide 21 L BUN 46 H Creatinine 2.2 H Glucose 106 H POC Glucose 115 H 151 H Lactic Acid Calcium 8.2 L Ionized Calcium Phosphorus Magnesium Direct Bilirubin AST ALT Alkaline Phosphatase Lactate Dehydrogenase Troponin T C-Reactive Protein Total Protein Albumin Prealbumin Triglycerides Cholesterol LDL Cholesterol Direct HDL Cholesterol 25-OH Vitamin D Total PTH Intact Urine pH Urine WBC (Auto) Urine Creatinine Urine Total Protein Fluid Total Protein Vancomycin Trough Rheumatoid Factor Complement C4 Miscellaneous Test Crossmatch 03/10/17 03/10/17 03/11/17 17:53 23:46 05:19 WBC RBC Hgb Hct MCV MCH MCHC RDW Plt Count Lymph % (Auto) [place] % (Auto) Lymph # [place] # Baso # Seg Neutrophils % Seg Neuts % (Manual) Lymphocytes % (Manual) Monocytes % (Manual) Eosinophils % (Manual) Basophils % (Manual) Nucleated RBC % Seg Neutrophils # Seg Neutrophils # Man Lymphocytes # (Manual) Monocytes # (Manual) Eosinophils # (Manual) Basophils # (Manual) PT INR Fibrinogen dRVVT Confirm Interp Factor V Activity POC ABG pH POC ABG pCO2 POC ABG pO2 ABG pO2 ABG HCO3 ABG Base Excess ABG Hemoglobin Oxyhemoglobin Sodium Potassium Chloride Carbon Dioxide BUN Creatinine Glucose POC Glucose 137 H 131 H 108 H Lactic Acid Calcium Ionized Calcium Phosphorus Magnesium Direct Bilirubin AST ALT Alkaline Phosphatase Lactate Dehydrogenase Troponin T C-Reactive Protein Total Protein Albumin Prealbumin Triglycerides Cholesterol LDL Cholesterol Direct HDL Cholesterol 25-OH Vitamin D Total PTH Intact Urine pH Urine WBC (Auto) Urine Creatinine Urine Total Protein Fluid Total Protein Vancomycin Trough Rheumatoid Factor Complement C4 Miscellaneous Test Crossmatch 03/11/17 03/11/17 03/11/17 11:37 18:13 23:55 WBC RBC Hgb Hct MCV MCH MCHC RDW Plt Count Lymph % (Auto) [place] % (Auto) Lymph # [place] # Baso # Seg Neutrophils % Seg Neuts % (Manual) Lymphocytes % (Manual) Monocytes % (Manual) Eosinophils % (Manual) Basophils % (Manual) Nucleated RBC % Seg Neutrophils # Seg Neutrophils # Man Lymphocytes # (Manual) Monocytes # (Manual) Eosinophils # (Manual) Basophils # (Manual) PT INR Fibrinogen dRVVT Confirm Interp Factor V Activity POC ABG pH POC ABG pCO2 POC ABG pO2 ABG pO2 ABG HCO3 ABG Base Excess ABG Hemoglobin Oxyhemoglobin Sodium Potassium Chloride Carbon Dioxide BUN Creatinine Glucose POC Glucose 113 H 126 H 134 H Lactic Acid Calcium Ionized Calcium Phosphorus Magnesium Direct Bilirubin AST ALT Alkaline Phosphatase Lactate Dehydrogenase Troponin T C-Reactive Protein Total Protein Albumin Prealbumin Triglycerides Cholesterol LDL Cholesterol Direct HDL Cholesterol 25-OH Vitamin D Total PTH Intact Urine pH Urine WBC (Auto) Urine Creatinine Urine Total Protein Fluid Total Protein Vancomycin Trough Rheumatoid Factor Complement C4 Miscellaneous Test Crossmatch 03/12/17 03/12/17 03/12/17 05:06 11:30 17:39 WBC RBC Hgb Hct MCV MCH MCHC RDW Plt Count Lymph % (Auto) [place] % (Auto) Lymph # [place] # Baso # Seg Neutrophils % Seg Neuts % (Manual) Lymphocytes % (Manual) Monocytes % (Manual) Eosinophils % (Manual) Basophils % (Manual) Nucleated RBC % Seg Neutrophils # Seg Neutrophils # Man Lymphocytes # (Manual) Monocytes # (Manual) Eosinophils # (Manual) Basophils # (Manual) PT INR Fibrinogen dRVVT Confirm Interp Factor V Activity POC ABG pH POC ABG pCO2 POC ABG pO2 ABG pO2 ABG HCO3 ABG Base Excess ABG Hemoglobin Oxyhemoglobin Sodium Potassium Chloride Carbon Dioxide BUN Creatinine Glucose POC Glucose 127 H 144 H 151 H Lactic Acid Calcium Ionized Calcium Phosphorus Magnesium Direct Bilirubin AST ALT Alkaline Phosphatase Lactate Dehydrogenase Troponin T C-Reactive Protein Total Protein Albumin Prealbumin Triglycerides Cholesterol LDL Cholesterol Direct HDL Cholesterol 25-OH Vitamin D Total PTH Intact Urine pH Urine WBC (Auto) Urine Creatinine Urine Total Protein Fluid Total Protein Vancomycin Trough Rheumatoid Factor Complement C4 Miscellaneous Test Crossmatch 03/13/17 03/13/17 03/13/17 05:01 05:39 11:29 WBC RBC Hgb Hct MCV MCH MCHC RDW Plt Count Lymph % (Auto) [place] % (Auto) Lymph # [place] # Baso # Seg Neutrophils % Seg Neuts % (Manual) Lymphocytes % (Manual) Monocytes % (Manual) Eosinophils % (Manual) Basophils % (Manual) Nucleated RBC % Seg Neutrophils # Seg Neutrophils # Man Lymphocytes # (Manual) Monocytes # (Manual) Eosinophils # (Manual) Basophils # (Manual) PT INR Fibrinogen dRVVT Confirm Interp Factor V Activity POC ABG pH POC ABG pCO2 POC ABG pO2 ABG pO2 ABG HCO3 ABG Base Excess ABG Hemoglobin Oxyhemoglobin Sodium 136 L Potassium 3.4 L Chloride 94.6 L Carbon Dioxide BUN 68 H Creatinine 2.9 H Glucose 105 H POC Glucose 123 H 128 H Lactic Acid Calcium Ionized Calcium Phosphorus Magnesium Direct Bilirubin AST ALT Alkaline Phosphatase Lactate Dehydrogenase Troponin T C-Reactive Protein Total Protein Albumin Prealbumin Triglycerides Cholesterol LDL Cholesterol Direct HDL Cholesterol 25-OH Vitamin D Total PTH Intact Urine pH Urine WBC (Auto) Urine Creatinine Urine Total Protein Fluid Total Protein Vancomycin Trough Rheumatoid Factor Complement C4 Miscellaneous Test Crossmatch 03/13/17 03/13/17 03/14/17 17:39 21:53 03:30 WBC RBC Hgb Hct MCV MCH MCHC RDW Plt Count Lymph % (Auto) [place] % (Auto) Lymph # [place] # Baso # Seg Neutrophils % Seg Neuts % (Manual) Lymphocytes % (Manual) Monocytes % (Manual) Eosinophils % (Manual) Basophils % (Manual) Nucleated RBC % Seg Neutrophils # Seg Neutrophils # Man Lymphocytes # (Manual) Monocytes # (Manual) Eosinophils # (Manual) Basophils # (Manual) PT INR Fibrinogen dRVVT Confirm Interp Factor V Activity POC ABG pH POC ABG pCO2 POC ABG pO2 ABG pO2 ABG HCO3 ABG Base Excess ABG Hemoglobin Oxyhemoglobin Sodium 133 L Potassium Chloride 95.7 L Carbon Dioxide 21 L BUN 37 H Creatinine 1.8 H Glucose 138 H POC Glucose 160 H 147 H Lactic Acid Calcium 8.1 L Ionized Calcium Phosphorus 2.10 L D Magnesium 1.60 L Direct Bilirubin AST ALT Alkaline Phosphatase Lactate Dehydrogenase Troponin T C-Reactive Protein Total Protein Albumin Prealbumin Triglycerides Cholesterol LDL Cholesterol Direct HDL Cholesterol 25-OH Vitamin D Total PTH Intact Urine pH Urine WBC (Auto) Urine Creatinine Urine Total Protein Fluid Total Protein Vancomycin Trough Rheumatoid Factor Complement C4 Miscellaneous Test Crossmatch 03/14/17 03/14/17 03/14/17 05:19 11:08 12:51 WBC RBC Hgb Hct MCV MCH MCHC RDW Plt Count Lymph % (Auto) [place] % (Auto) Lymph # [place] # Baso # Seg Neutrophils % Seg Neuts % (Manual) Lymphocytes % (Manual) Monocytes % (Manual) Eosinophils % (Manual) Basophils % (Manual) Nucleated RBC % Seg Neutrophils # Seg Neutrophils # Man Lymphocytes # (Manual) Monocytes # (Manual) Eosinophils # (Manual) Basophils # (Manual) PT INR Fibrinogen dRVVT Confirm Interp Factor V Activity POC ABG pH POC ABG pCO2 POC ABG pO2 ABG pO2 ABG HCO3 ABG Base Excess ABG Hemoglobin Oxyhemoglobin Sodium Potassium Chloride Carbon Dioxide BUN Creatinine Glucose POC Glucose 159 H 144 H Lactic Acid Calcium Ionized Calcium Phosphorus Magnesium Direct Bilirubin AST ALT Alkaline Phosphatase Lactate Dehydrogenase Troponin T C-Reactive Protein 19.50 H Total Protein Albumin Prealbumin Triglycerides Cholesterol LDL Cholesterol Direct HDL Cholesterol 25-OH Vitamin D Total PTH Intact Urine pH Urine WBC (Auto) Urine Creatinine Urine Total Protein Fluid Total Protein Vancomycin Trough Rheumatoid Factor Complement C4 Miscellaneous Test Crossmatch 03/14/17 03/14/17 03/14/17 14:30 16:50 16:55 WBC 17.6 H RBC 2.18 L Hgb 6.0 L Hct 19.8 L* MCV MCH MCHC RDW 19.9 H Plt Count Lymph % (Auto) [place] % (Auto) Lymph # [place] # Baso # Seg Neutrophils % Seg Neuts % (Manual) Lymphocytes % (Manual) 13.0 L Monocytes % (Manual) 15.0 H Eosinophils % (Manual) Basophils % (Manual) Nucleated RBC % Seg Neutrophils # Seg Neutrophils # Man 12.3 H Lymphocytes # (Manual) Monocytes # (Manual) 2.6 H Eosinophils # (Manual) Basophils # (Manual) PT INR Fibrinogen dRVVT Confirm Interp Factor V Activity POC ABG pH POC ABG pCO2 POC ABG pO2 ABG pO2 ABG HCO3 ABG Base Excess ABG Hemoglobin Oxyhemoglobin Sodium Potassium Chloride Carbon Dioxide BUN Creatinine Glucose POC Glucose 156 H Lactic Acid Calcium Ionized Calcium Phosphorus Magnesium Direct Bilirubin AST ALT Alkaline Phosphatase Lactate Dehydrogenase Troponin T C-Reactive Protein Total Protein Albumin Prealbumin Triglycerides Cholesterol LDL Cholesterol Direct HDL Cholesterol 25-OH Vitamin D Total PTH Intact Urine pH Urine WBC (Auto) Urine Creatinine Urine Total Protein Fluid Total Protein Vancomycin Trough Rheumatoid Factor Complement C4 Miscellaneous Test Crossmatch See Detail 03/14/17 03/15/17 03/15/17 23:31 05:03 05:03 WBC 15.2 H RBC 2.42 L Hgb 6.9 L Hct 22.2 L MCV MCH MCHC RDW 18.4 H Plt Count Lymph % (Auto) [place] % (Auto) Lymph # [place] # Baso # Seg Neutrophils % Seg Neuts % (Manual) Lymphocytes % (Manual) Monocytes % (Manual) Eosinophils % (Manual) Basophils % (Manual) Nucleated RBC % Seg Neutrophils # Seg Neutrophils # Man Lymphocytes # (Manual) Monocytes # (Manual) Eosinophils # (Manual) Basophils # (Manual) PT INR Fibrinogen dRVVT Confirm Interp Factor V Activity POC ABG pH POC ABG pCO2 POC ABG pO2 ABG pO2 ABG HCO3 ABG Base Excess ABG Hemoglobin Oxyhemoglobin Sodium Potassium 3.5 L Chloride Carbon Dioxide BUN 54 H Creatinine 2.6 H Glucose 127 H POC Glucose 176 H Lactic Acid Calcium Ionized Calcium Phosphorus Magnesium Direct Bilirubin AST ALT Alkaline Phosphatase Lactate Dehydrogenase Troponin T C-Reactive Protein Total Protein Albumin Prealbumin Triglycerides Cholesterol LDL Cholesterol Direct HDL Cholesterol 25-OH Vitamin D Total PTH Intact Urine pH Urine WBC (Auto) Urine Creatinine Urine Total Protein Fluid Total Protein Vancomycin Trough Rheumatoid Factor Complement C4 Miscellaneous Test Crossmatch 03/15/17 03/15/17 03/15/17 05:04 12:52 17:46 WBC RBC Hgb Hct MCV MCH MCHC RDW Plt Count Lymph % (Auto) [place] % (Auto) Lymph # [place] # Baso # Seg Neutrophils % Seg Neuts % (Manual) Lymphocytes % (Manual) Monocytes % (Manual) Eosinophils % (Manual) Basophils % (Manual) Nucleated RBC % Seg Neutrophils # Seg Neutrophils # Man Lymphocytes # (Manual) Monocytes # (Manual) Eosinophils # (Manual) Basophils # (Manual) PT INR Fibrinogen dRVVT Confirm Interp Factor V Activity POC ABG pH POC ABG pCO2 POC ABG pO2 ABG pO2 ABG HCO3 ABG Base Excess ABG Hemoglobin Oxyhemoglobin Sodium Potassium Chloride Carbon Dioxide BUN Creatinine Glucose POC Glucose 106 H 141 H 170 H Lactic Acid Calcium Ionized Calcium Phosphorus Magnesium Direct Bilirubin AST ALT Alkaline Phosphatase Lactate Dehydrogenase Troponin T C-Reactive Protein Total Protein Albumin Prealbumin Triglycerides Cholesterol LDL Cholesterol Direct HDL Cholesterol 25-OH Vitamin D Total PTH Intact Urine pH Urine WBC (Auto) Urine Creatinine Urine Total Protein Fluid Total Protein Vancomycin Trough Rheumatoid Factor Complement C4 Miscellaneous Test Crossmatch 03/16/17 03/16/17 03/16/17 00:16 03:35 05:15 WBC RBC Hgb Hct MCV MCH MCHC RDW Plt Count Lymph % (Auto) [place] % (Auto) Lymph # [place] # Baso # Seg Neutrophils % Seg Neuts % (Manual) Lymphocytes % (Manual) Monocytes % (Manual) Eosinophils % (Manual) Basophils % (Manual) Nucleated RBC % Seg Neutrophils # Seg Neutrophils # Man Lymphocytes # (Manual) Monocytes # (Manual) Eosinophils # (Manual) Basophils # (Manual) PT INR Fibrinogen dRVVT Confirm Interp Factor V Activity POC ABG pH POC ABG pCO2 POC ABG pO2 ABG pO2 ABG HCO3 ABG Base Excess ABG Hemoglobin Oxyhemoglobin Sodium Potassium 3.5 L Chloride Carbon Dioxide BUN 26 H Creatinine 1.3 H Glucose 129 H POC Glucose 120 H 140 H Lactic Acid Calcium 7.9 L Ionized Calcium Phosphorus 2.20 L D Magnesium Direct Bilirubin AST ALT Alkaline Phosphatase Lactate Dehydrogenase Troponin T C-Reactive Protein Total Protein Albumin Prealbumin Triglycerides Cholesterol LDL Cholesterol Direct HDL Cholesterol 25-OH Vitamin D Total PTH Intact Urine pH Urine WBC (Auto) Urine Creatinine Urine Total Protein Fluid Total Protein Vancomycin Trough Rheumatoid Factor Complement C4 Miscellaneous Test Crossmatch 03/16/17 03/16/17 03/17/17 12:26 18:16 00:00 WBC RBC Hgb Hct MCV MCH MCHC RDW Plt Count Lymph % (Auto) [place] % (Auto) Lymph # [place] # Baso # Seg Neutrophils % Seg Neuts % (Manual) Lymphocytes % (Manual) Monocytes % (Manual) Eosinophils % (Manual) Basophils % (Manual) Nucleated RBC % Seg Neutrophils # Seg Neutrophils # Man Lymphocytes # (Manual) Monocytes # (Manual) Eosinophils # (Manual) Basophils # (Manual) PT INR Fibrinogen dRVVT Confirm Interp Factor V Activity POC ABG pH POC ABG pCO2 POC ABG pO2 ABG pO2 ABG HCO3 ABG Base Excess ABG Hemoglobin Oxyhemoglobin Sodium Potassium Chloride Carbon Dioxide BUN Creatinine Glucose POC Glucose 133 H 107 H 124 H Lactic Acid Calcium Ionized Calcium Phosphorus Magnesium Direct Bilirubin AST ALT Alkaline Phosphatase Lactate Dehydrogenase Troponin T C-Reactive Protein Total Protein Albumin Prealbumin Triglycerides Cholesterol LDL Cholesterol Direct HDL Cholesterol 25-OH Vitamin D Total PTH Intact Urine pH Urine WBC (Auto) Urine Creatinine Urine Total Protein Fluid Total Protein Vancomycin Trough Rheumatoid Factor Complement C4 Miscellaneous Test Crossmatch 03/17/17 03/17/17 03/17/17 04:00 05:57 12:00 WBC RBC Hgb Hct MCV MCH MCHC RDW Plt Count Lymph % (Auto) [place] % (Auto) Lymph # [place] # Baso # Seg Neutrophils % Seg Neuts % (Manual) Lymphocytes % (Manual) Monocytes % (Manual) Eosinophils % (Manual) Basophils % (Manual) Nucleated RBC % Seg Neutrophils # Seg Neutrophils # Man Lymphocytes # (Manual) Monocytes # (Manual) Eosinophils # (Manual) Basophils # (Manual) PT INR Fibrinogen dRVVT Confirm Interp Factor V Activity POC ABG pH POC ABG pCO2 POC ABG pO2 ABG pO2 ABG HCO3 ABG Base Excess ABG Hemoglobin Oxyhemoglobin Sodium 134 L Potassium Chloride 95.1 L Carbon Dioxide BUN 37 H Creatinine 1.8 H Glucose 115 H POC Glucose 141 H 129 H Lactic Acid Calcium 8.3 L Ionized Calcium Phosphorus 5.50 H D Magnesium Direct Bilirubin AST ALT Alkaline Phosphatase Lactate Dehydrogenase Troponin T C-Reactive Protein Total Protein Albumin Prealbumin Triglycerides Cholesterol LDL Cholesterol Direct HDL Cholesterol 25-OH Vitamin D Total PTH Intact Urine pH Urine WBC (Auto) Urine Creatinine Urine Total Protein Fluid Total Protein Vancomycin Trough Rheumatoid Factor Complement C4 Miscellaneous Test Crossmatch 03/17/17 03/18/17 03/18/17 17:23 00:04 04:00 WBC RBC Hgb Hct MCV MCH MCHC RDW Plt Count Lymph % (Auto) [place] % (Auto) Lymph # [place] # Baso # Seg Neutrophils % Seg Neuts % (Manual) Lymphocytes % (Manual) Monocytes % (Manual) Eosinophils % (Manual) Basophils % (Manual) Nucleated RBC % Seg Neutrophils # Seg Neutrophils # Man Lymphocytes # (Manual) Monocytes # (Manual) Eosinophils # (Manual) Basophils # (Manual) PT INR Fibrinogen dRVVT Confirm Interp Factor V Activity POC ABG pH POC ABG pCO2 POC ABG pO2 ABG pO2 ABG HCO3 ABG Base Excess ABG Hemoglobin Oxyhemoglobin Sodium Potassium Chloride Carbon Dioxide BUN 23 H Creatinine 1.3 H Glucose 122 H POC Glucose 155 H 126 H Lactic Acid Calcium 8.3 L Ionized Calcium Phosphorus Magnesium Direct Bilirubin AST ALT Alkaline Phosphatase Lactate Dehydrogenase Troponin T C-Reactive Protein Total Protein Albumin Prealbumin Triglycerides Cholesterol LDL Cholesterol Direct HDL Cholesterol 25-OH Vitamin D Total PTH Intact Urine pH Urine WBC (Auto) Urine Creatinine Urine Total Protein Fluid Total Protein Vancomycin Trough Rheumatoid Factor Complement C4 Miscellaneous Test Crossmatch 03/18/17 05:47 WBC RBC Hgb Hct MCV MCH MCHC RDW Plt Count Lymph % (Auto) [place] % (Auto) Lymph # [place] # Baso # Seg Neutrophils % Seg Neuts % (Manual) Lymphocytes % (Manual) Monocytes % (Manual) Eosinophils % (Manual) Basophils % (Manual) Nucleated RBC % Seg Neutrophils # Seg Neutrophils # Man Lymphocytes # (Manual) Monocytes # (Manual) Eosinophils # (Manual) Basophils # (Manual) PT INR Fibrinogen dRVVT Confirm Interp Factor V Activity POC ABG pH POC ABG pCO2 POC ABG pO2 ABG pO2 ABG HCO3 ABG Base Excess ABG Hemoglobin Oxyhemoglobin Sodium Potassium Chloride Carbon Dioxide BUN Creatinine Glucose POC Glucose 139 H Lactic Acid Calcium Ionized Calcium Phosphorus Magnesium Direct Bilirubin AST ALT Alkaline Phosphatase Lactate Dehydrogenase Troponin T C-Reactive Protein Total Protein Albumin Prealbumin Triglycerides Cholesterol LDL Cholesterol Direct HDL Cholesterol 25-OH Vitamin D Total PTH Intact Urine pH Urine WBC (Auto) Urine Creatinine Urine Total Protein Fluid Total Protein Vancomycin Trough Rheumatoid Factor Complement C4 Miscellaneous Test Crossmatch Allied health notes reviewed: nursing
[2017-03-18] MEDS: PEPCID IV SCH (10:39)
[2017-03-18] MEDS: HEPARIN SUB-Q SCH ×2 (10:39→22:26)
[2017-03-18] MEDS: MAXIPIME 1 GM in NACL 0.9% 20 ML IV SCH (12:20)
[2017-03-18] MEDS ORDERED: TPN ADULT IV SCH (20:00)
[2017-03-18] MEDS: CORDARONE 900 MG in D5W 482 ML IV SCH (22:26)
[2017-03-19 06:30] LABS: Calcium 8.6 mg/dL (8.4-10.2)
[2017-03-19] MEDS: HumuLIN R SUB-Q SCH ×5 (06:30→23:23)
[2017-03-19] MEDS: FLAGYL 500 MG/100 ML 500 MG/100 ML BAG IV SCH ×3 (06:32→23:01)
--- NOTE | 2017-03-19 07:49 | Progress Note ---
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 UF as tolerated. Patient's serum creatinine is noted to be low - due to wasting of muscle mass. Needs to be maintained on dialysis at this time. * hypercalcemia work up - likely due to immobilization * Abx management per ID * Adjust Ca bath with dialysis prn * Transfuse pRBC per primary team. Epogen TIW prn * Vent management per pulm/CCM * Pressors prn for MAP>65 * Dose medications for renal function Subjective Date of service: 03/19/17 Principal diagnosis: Acute resp failure on MVS; S/P Acute CVA; Acute Encephalopathy; JUANITA Interval history: new events from last pm noted Objective - Exam Narrative Exam: Gen. appearance: Patient lying in bed, no apparent distress, 4. restraints HEENT: Normocephalic, atraumatic, pupils equally round and reactive to light, extraocular movement intact, and no sclericterus,. No JVD or thyromegaly or nodule,neck supple, no carotid bruit ,mucous membranes moist, unable to examine oral cavity Heart: S1, S2, regular rate and rhythm Lungs: Clear to auscultation bilaterally, breathing comfortable Abdomen: Positive bowel sounds, nontender, nondistended, no organomegaly Extremity: No edema, cyanosis, clubbing Skin: No rash, nodules, warm, dry Neuro: Difficult to assess, facial droop, moves all 4 extremities - Vital Signs Vital signs: Vital Signs - 12hr 03/18/17 03/18/17 03/18/17 19:50 19:51 20:00 Temperature Pulse Rate 93 H 97 H Pulse Rate [ 100 H Throughout] Respiratory 12 Rate Respiratory 16 Rate [ Throughout] Blood Pressure 103/64 118/73 O2 Sat by Pulse 100 Oximetry O2 Sat by Pulse Oximetry [ Assessment] 03/18/17 03/18/17 03/18/17 20:30 20:46 21:00 Temperature Pulse Rate 99 H 100 H Pulse Rate [ 100 H Throughout] Respiratory 23 14 Rate Respiratory 18 Rate [ Throughout] Blood Pressure 111/67 101/75 O2 Sat by Pulse 100 Oximetry O2 Sat by Pulse Oximetry [ Assessment] 03/18/17 03/18/17 03/18/17 21:30 22:00 22:27 Temperature Pulse Rate 97 H 91 H 95 H Pulse Rate [ Throughout] Respiratory 14 14 Rate Respiratory Rate [ Throughout] Blood Pressure 111/71 106/65 105/68 O2 Sat by Pulse Oximetry O2 Sat by Pulse Oximetry [ Assessment] 03/18/17 03/18/17 03/18/17 22:30 22:40 23:00 Temperature Pulse Rate 94 H 94 H Pulse Rate [ Throughout] Respiratory 11 L 15 Rate Respiratory Rate [ Throughout] Blood Pressure 105/69 114/76 O2 Sat by Pulse Oximetry O2 Sat by Pulse 100 Oximetry [ Assessment] 03/18/17 03/19/17 03/19/17 23:30 00:00 00:30 Temperature 98.7 F Pulse Rate 93 H 101 H 94 H Pulse Rate [ Throughout] Respiratory 13 19 17 Rate Respiratory Rate [ Throughout] Blood Pressure 118/71 112/79 118/77 O2 Sat by Pulse 93 99 Oximetry O2 Sat by Pulse Oximetry [ Assessment] 03/19/17 03/19/17 03/19/17 01:00 01:30 02:00 Temperature Pulse Rate 94 H 95 H 94 H Pulse Rate [ Throughout] Respiratory 20 13 14 Rate Respiratory Rate [ Throughout] Blood Pressure 120/81 111/75 125/80 O2 Sat by Pulse 98 100 Oximetry O2 Sat by Pulse Oximetry [ Assessment] 03/19/17 03/19/17 03/19/17 02:30 03:00 03:30 Temperature Pulse Rate 92 H 95 H 92 H Pulse Rate [ Throughout] Respiratory 14 13 11 L Rate Respiratory Rate [ Throughout] Blood Pressure 123/81 137/89 130/86 O2 Sat by Pulse 100 100 Oximetry O2 Sat by Pulse Oximetry [ Assessment] 03/19/17 03/19/17 04:00 04:30 Temperature 97.5 F L Pulse Rate 90 95 H Pulse Rate [ Throughout] Respiratory 11 L 15 Rate Respiratory Rate [ Throughout] Blood Pressure 123/74 112/79 O2 Sat by Pulse 100 100 Oximetry O2 Sat by Pulse Oximetry [ Assessment] - Lab 03/15/17 05:03 03/19/17 Unknown Most recent lab results ABG pH 7.450 pH Units (7.350-7.450) 12/05/16 Unknown ABG pCO2 29.6 mm Hg 12/05/16 Unknown ABG pO2 75.2 mm Hg (80.0-90.0) L 12/05/16 Unknown ABG HCO3 20.1 mmol/L (20.0-26.0) 12/05/16 Unknown ABG O2 Saturation 96.8 % (95.0-99.0) 12/05/16 Unknown Calcium 8.6 mg/dL (8.4-10.2) 03/19/17 Unknown Phosphorus 5.20 mg/dL (2.5-4.5) H D 03/19/17 Unknown Magnesium 1.90 mg/dL (1.7-2.3) 03/19/17 Unknown Urine Creatinine 19.7 mg/dL (0.1-20.0) 11/12/16 10:18 Urine Sodium 36 mEq/L 09/16/16 19:19 Urine Total Protein 16 mg/dL (5-11.8) H 09/16/16 19:19
[2017-03-19] MEDS: DUONEB *Not for PRN Use IH SCH ×3 (08:45→19:21)
[2017-03-19] MEDS: HEPARIN SUB-Q SCH ×2 (09:35→23:02)
[2017-03-19] MEDS: PEPCID IV SCH (09:35)
--- NOTE | 2017-03-19 11:28 | Progress Note ---
Assessment and Plan Assessment and plan: 47-year-old female patient multiple medical problems, large CVA , hypoxic encephalopathy , status post cardiac arrest , vegetative state , atrial fibrillation , sepsis , aspiration pneumonia , end-stage renal disease on hemodialysis , multiple sacral and lower extremity decubiti requiring debridement , severe protein calorie malnutrition peritonitis / perforation, multiple surgeries, DO NOT RESUSCITATE status,prolonged hospital stay and poor prognosis, --Status post cardiac arrest/anoxic encephalopathy/status post tracheostomy --Large CVA; with midline shift, continue current management --Persistent vegetative state/DO NOT RESUSCITATE status, family not ready for hospice -- sepsis,recurrent enterococcal bacteremia ; continue cefepime and metronidazole per ID --Perforated bowel/large fluid collection, s/p drain placement; management per surgery --Acute respiratory failure status post tracheostomy vent dependent --Hypotension; monitor Levophed as needed --A. fib with rapid ventricular rate; continue amiodarone --Peritonitis ; due to gastric perforation, status post exploratory laparotomy, but gastrostomy, abdominal washout and drain placement, on TPN --End-stage renal disease on hemodialysis --Aspiration pneumonia; completed multiple courses of antibiotics, ID following --Severe protein calorie malnutrition; nutrition consult and supportive care --Multiple sacral and lower extremity decubitus ulcers; status post debridement , continue wound care --DO NOT RESUSCITATE status Poor prognosis, had many family meetings in the past, family aware of patient's poor prognosis Critical care time 31 minutes - The high probability of a clinically significant, sudden or life threatening deterioration of the [neurologic, CV] system(s) required my full and direct attention, intervention and personal management. The aggregate critical care time was [31] minutes. This time is in addition to time spent performing reported procedures but includes the following: [x] Data Review and interpretation [x] Patient assessment and monitoring of vital signs [x] Documentation [x] Medication orders and management History Interval history: Patient seen and evaluated Medical records reviewed Status post tracheostomy on vent vitals reviewed Hospitalist Physical - Constitutional Vitals: Temp Pulse Resp BP Pulse Ox 98.9 F 87 20 119/79 100 03/19/17 08:00 03/19/17 08:45 03/19/17 08:45 03/19/17 08:45 03/19/17 08:45 General appearance: Present: no acute distress, cachectic, other (spontaneous opening of eyes, unresponsive) - EENT Eyes: Present: PERRL, EOM intact - Neck Neck: Present: supple, normal ROM - Respiratory Respiratory effort: normal Respiratory: bilateral: diminished, rhonchi, negative: rales, wheezing - Cardiovascular Rhythm: regular Heart Sounds: Present: S1 & S2 - Extremities Extremities: no ischemia Extremity abnormal: edema - Abdominal General gastrointestinal: soft, non-tender, non-distended - Integumentary Integumentary: Present: clear, warm - Psychiatric Psychiatric: other (noncommunicative) - Neurologic Neurologic: other (noncommunicative) Results - Labs CBC & Chem 7: 03/15/17 05:03 03/19/17 Unknown Labs: Laboratory Last Values WBC 15.2 K/mm3 (4.5-11.0) H 03/15/17 05:03 RBC 2.42 M/mm3 (3.65-5.03) L 03/15/17 05:03 Hgb 6.9 gm/dl (10.1-14.3) L 03/15/17 05:03 Hct 22.2 % (30.3-42.9) L 03/15/17 05:03 MCV 91 fl (79-97) 03/15/17 05:03 MCH 28 pg (28-32) 03/15/17 05:03 MCHC 31 % (30-34) 03/15/17 05:03 RDW 18.4 % (13.2-15.2) H 03/15/17 05:03 Plt Count 193 K/mm3 (140-440) 03/15/17 05:03 Lymph % (Auto) Lab Intern 03/14/17 14:30 [place] % (Auto) Lab Intern 03/14/17 14:30 Eos % (Auto) Lab Intern 03/14/17 14:30 Baso % (Auto) Lab Intern 03/14/17 14:30 Lymph # Lab Intern 03/14/17 14:30 [place] # Lab Intern 03/14/17 14:30 Eos # Lab Intern 03/14/17 14:30 Baso # Lab Intern 03/14/17 14:30 Add Manual Diff Complete 03/14/17 14:30 Total Counted 100 03/14/17 14:30 Seg Neutrophils % Lab Intern 03/14/17 14:30 Seg Neuts % (Manual) 70.0 % (40.0-70.0) 03/14/17 14:30 Band Neutrophils % 0 % 03/14/17 14:30 Lymphocytes % (Manual) 13.0 % (13.4-35.0) L 03/14/17 14:30 Reactive Lymphs % (Man) 1.0 % 03/14/17 14:30 Monocytes % (Manual) 15.0 % (0.0-7.3) H 03/14/17 14:30 Eosinophils % (Manual) 1.0 % (0.0-4.3) 03/14/17 14:30 Basophils % (Manual) 0 % (0.0-1.8) 03/14/17 14:30 Metamyelocytes % 0 % 03/14/17 14:30 Myelocytes % 0 % 03/14/17 14:30 Promyelocytes % 0 % 03/14/17 14:30 Blast Cells % 0 % 03/14/17 14:30 Nucleated RBC % Not Reportable 03/14/17 14:30 Seg Neutrophils # Lab Intern 03/14/17 14:30 Seg Neutrophils # Man 12.3 K/mm3 (1.8-7.7) H 03/14/17 14:30 Band Neutrophils # 0.0 K/mm3 03/14/17 14:30 Lymphocytes # (Manual) 2.3 K/mm3 (1.2-5.4) 03/14/17 14:30 Abs React Lymphs (Man) 0.2 K/mm3 03/14/17 14:30 Monocytes # (Manual) 2.6 K/mm3 (0.0-0.8) H 03/14/17 14:30 Eosinophils # (Manual) 0.2 K/mm3 (0.0-0.4) 03/14/17 14:30 Basophils # (Manual) 0.0 K/mm3 (0.0-0.1) 03/14/17 14:30 Metamyelocytes # 0.0 K/mm3 03/14/17 14:30 Myelocytes # 0.0 K/mm3 03/14/17 14:30 Promyelocytes # 0.0 K/mm3 03/14/17 14:30 Blast Cells # 0.0 K/mm3 03/14/17 14:30 Pathologist Review 09/13/16 04:00 WBC Morphology Not Reportable 03/14/17 14:30 Hypersegmented Neuts Not Reportable 03/14/17 14:30 Hyposegmented Neuts Not Reportable 03/14/17 14:30 Hypogranular Neuts Not Reportable 03/14/17 14:30 Smudge Cells Not Reportable 03/14/17 14:30 Toxic Granulation Not Reportable 03/14/17 14:30 Toxic Vacuolation Not Reportable 03/14/17 14:30 Dohle Bodies Not Reportable 03/14/17 14:30 Pelger-Huet Anomaly Not Reportable 03/14/17 14:30 Jasmina Rods Not Reportable 03/14/17 14:30 Platelet Estimate Consistent w auto 03/14/17 14:30 Clumped Platelets Not Reportable 03/14/17 14:30 Plt Clumps, EDTA Not Reportable 03/14/17 14:30 Large Platelets Not Reportable 03/14/17 14:30 Giant Platelets Not Reportable 03/14/17 14:30 Platelet Satelliting Not Reportable 03/14/17 14:30 Plt Morphology Comment Not Reportable 03/14/17 14:30 RBC Morphology Not Reportable 03/14/17 14:30 Dimorphic RBCs Not Reportable 03/14/17 14:30 Polychromasia Not Reportable 03/14/17 14:30 Hypochromasia 2+ 03/14/17 14:30 Poikilocytosis Not Reportable 03/14/17 14:30 Anisocytosis 1+ 03/14/17 14:30 Microcytosis Not Reportable 03/14/17 14:30 Macrocytosis Not Reportable 03/14/17 14:30 Spherocytes Not Reportable 03/14/17 14:30 Pappenheimer Bodies Not Reportable 03/14/17 14:30 Sickle Cells Not Reportable 03/14/17 14:30 Target Cells Not Reportable 03/14/17 14:30 Tear Drop Cells Not Reportable 03/14/17 14:30 Ovalocytes Not Reportable 03/14/17 14:30 Stomatocytes 2+ 03/14/17 14:30 Helmet Cells Not Reportable 03/14/17 14:30 Monet-Kayenta Bodies Not Reportable 03/14/17 14:30 Graham Rings Not Reportable 03/14/17 14:30 Chuck Cells Not Reportable 03/14/17 14:30 Bite Cells Not Reportable 03/14/17 14:30 Crenated Cell Not Reportable 03/14/17 14:30 Elliptocytes Not Reportable 03/14/17 14:30 Acanthocytes (Spur) Not Reportable 03/14/17 14:30 Rouleaux Not Reportable 03/14/17 14:30 Hemoglobin C Crystals Not Reportable 03/14/17 14:30 Schistocytes Not Reportable 03/14/17 14:30 Malaria parasites Not Reportable 03/14/17 14:30 ESR > 140.0 mm/Hr (0-20) 09/08/16 11:48 Jun Bodies Not Reportable 03/14/17 14:30 Hem Pathologist Commnt No 03/14/17 14:30 PT 15.4 Sec. (12.2-14.9) H 01/13/17 15:50 INR 1.16 (0.87-1.13) H 01/13/17 15:50 APTT 33.0 Sec. (24.2-36.6) 10/09/16 03:45 Thrombin Time 16.8 Sec. (15.1-19.6) 09/03/16 00:10 Fibrinogen 750 mg/dl (211-480) H 09/08/16 11:48 Lupus Anticoagulant see below 09/12/16 09:59 LA PTT Baseline See scanned report 09/12/16 09:59 dRVVT Confirm Interp Positive (Negative) H 09/12/16 09:59 dRVVT Screen 50:50 See scanned report 09/12/16 09:59 dRVVT Mix Interpret See scanned report 09/12/16 09:59 Protein C Antigen 122 % (70-140) 09/08/16 15:35 Free Protein S 97 % normal (50-147) 09/08/16 15:35 Total Protein S 109 % (70-140) 09/08/16 15:35 Antithrombin III Ag 100 % (80-120) 09/08/16 15:35 Heparin Anti-Xa, Unfract Negative (Negative) 09/29/16 13:35 Factor V Activity 182 % (65-150) H 09/08/16 15:35 POC ABG pH 7.518 (7.35-7.45) H 03/03/17 20:17 ABG pH 7.450 pH Units (7.350-7.450) 12/05/16 Unknown POC ABG pCO2 28.8 (35-45) L 03/03/17 20: ABG pCO2 29.6 mm Hg 12/05/16 Unknown POC ABG pO2 61 (80-105) L 03/03/17 20: ABG pO2 75.2 mm Hg (80.0-90.0) L 12/05/16 Unknown POC ABG HCO3 23.4 03/03/17 20: ABG HCO3 20.1 mmol/L (20.0-26.0) 12/05/16 Unknown POC ABG Total CO2 24 03/03/17 20: POC ABG O2 Sat 94 03/03/17: ABG O2 Saturation 96.8 % (95.0-99.0) 12/05/16 Unknown ABG O2 Content 9.9 (0.0-44) 12/05/16 Unknown POC ABG Base Excess 0 03/03/17: ABG Base Excess -3.4 mmol/L (-2.0-3.0) L 12/05/16 Unknown ABG Hemoglobin 7.4 gm/dl (12.0-16.0) L 12/05/16 Unknown ABG Carboxyhemoglobin 1.8 % (0.0-5.0) 12/05/16 Unknown ABG Methemoglobin 0.6 % (0.0-1.5) 12/05/16 Unknown Oxyhemoglobin 94.5 % (95.0-99.0) L 12/05/16 Unknown FiO2 40 % 03/03/17 20: Sodium 137 mmol/L (137-145) 03/19/17 Unknown Potassium 4.6 mmol/L (3.6-5.0) 03/19/17 Unknown Chloride 96.8 mmol/L (98-107) L 03/19/17 Unknown Carbon Dioxide 26 mmol/L (22-30) 03/19/17 Unknown Anion Gap 19 mmol/L 03/19/17 Unknown BUN 34 mg/dL (7-17) H 03/19/17 Unknown Creatinine 1.9 mg/dL (0.7-1.2) H 03/19/17 Unknown Estimated GFR 34 ml/min 03/19/17 Unknown BUN/Creatinine Ratio 18 % 03/19/17 Unknown Glucose 138 mg/dL (65-100) H 03/19/17 Unknown POC Glucose 146 (70-105) H 03/19/17 06:11 Osmolality 351 Mosm/kg 09/16/16 11:47 Lactic Acid 2.30 mmol/L (0.7-2.0) H* 01/09/17 08:22 Calcium 8.6 mg/dL (8.4-10.2) 03/19/17 Unknown Ionized Calcium 6.0 mg/dL (4.8-5.6) H 02/15/17 19:08 Phosphorus 5.20 mg/dL (2.5-4.5) H D 03/19/17 Unknown Magnesium 1.90 mg/dL (1.7-2.3) 03/19/17 Unknown Total Bilirubin 0.50 mg/dL (0.1-1.2) 03/06/17 03:52 Direct Bilirubin 0.2 mg/dL (0-0.2) 01/28/17 04:00 Indirect Bilirubin 0.3 mg/dL 01/28/17 04:00 AST 18 units/L (5-40) 03/06/17 03:52 ALT 18 units/L (7-56) 03/06/17 03:52 Alkaline Phosphatase 165 units/L (35-129) H 03/06/17 03:52 Ammonia 27.0 umol/L (25-60) 09/07/16 08:37 Lactate Dehydrogenase 170 units/L (91-180) 01/13/17 15:50 Total Creatine Kinase 121 units/L (30-135) 09/29/16 20:12 CK-MB (CK-2) < 1.0 ng/mL (0.0-4.0) 09/29/16 20:12 CK-MB (CK-2) Rel Index 0.8 (0-4) 09/29/16 20:12 Troponin T 0.204 ng/mL (0.00-0.029) H* 09/29/16 20:12 C-Reactive Protein 19.50 mg/dL (0.00-1.30) H 03/14/17 12:51 Total Protein 7.0 g/dL (6.3-8.2) 03/06/17 03:52 Albumin 1.5 g/dL (3.9-5) L 03/06/17 03:52 Albumin/Globulin Ratio 0.3 % 03/06/17 03:52 Prealbumin 0.110 g/L (0.200-0.400) L 12/29/16 05:15 Triglycerides 55 mg/dL (2-149) 02/06/17 04:45 Cholesterol 31 mg/dL (50-199) L 09/29/16 20:12 LDL Cholesterol Direct 4 mg/dL (50-130) L 09/29/16 20:12 HDL Cholesterol 3 mg/dL (40-59) L 09/29/16 20:12 Cholesterol/HDL Ratio 10.33 % 09/29/16 20:12 Angiotensin Convert Enz See scanned report 09/08/16 11:48 Renin 0.99 ng/mL/h (0.25-5.82) 10/07/16 10:56 Aldosterone <1 ng/dL () 10/07/16 10:56 Aldosterone/Renin Dir see below 10/07/16 10:56 Serotonin Release Assay See scanned report 09/29/16 13:35 25-OH Vitamin D Total 13 ng/mL (30-100) L 02/15/17 19:08 25-Hydroxy Vitamin D2 . 02/15/17 19:08 25-Hydroxy Vitamin D3 . 02/15/17 19:08 TSH 1.010 mlU/mL (0.270-4.200) 09/07/16 08:37 HCG, Qual Negative (Negative) 09/03/16 00:10 PTH Intact 10.88 pg/mL (15-65) L 02/15/17 19:08 Total Cortisol 18.2 mcg/dL () 02/02/17 20:09 Urine Color Yellow (Yellow) 11/05/16 13:09 Urine Turbidity Clear (Clear) 11/05/16 13:09 Urine pH 9.0 (5.0-7.0) H 11/05/16 13:09 Ur Specific [place] 1.011 (1.003-1.030) 11/05/16 13:09 Urine Protein 100 mg/dl mg/dL (Negative) 11/05/16 13:09 Urine Glucose (UA) Neg mg/dL (Negative) 11/05/16 13:09 Urine Ketones Neg mg/dL (Negative) 11/05/16 13:09 Urine Blood Neg (Negative) 11/05/16 13:09 Urine Nitrite Neg (Negative) 11/05/16 13:09 Urine Bilirubin Neg (Negative) 11/05/16 13:09 Urine Urobilinogen < 2.0 mg/dL (<2.0) 11/05/16 13:09 Ur Leukocyte Esterase Neg (Negative) 11/05/16 13:09 Urine WBC (Auto) 4.0 /HPF (0.0-6.0) 11/05/16 13:09 Urine RBC (Auto) 1.0 /HPF (0.0-6.0) 11/05/16 13:09 U Epithel Cells (Auto) 1.0 /HPF (0-13.0) 10/07/16 18:30 Urine Bacteria (Auto) 4+ /HPF (Negative) 11/05/16 13:09 Urine WBC Clumps 2+ /HPF 09/07/16 02:47 Hyaline Casts 4 /LPF 09/07/16 02:47 Urine Mucus Few /HPF 10/07/16 18:30 Urine Yeast (Budding) 3+ /HPF 10/07/16 18:30 Urine Eosinophils None seen (None Seen) 09/07/16 16:00 Urine Total Volume 950 11/12/16 10:18 Urine Creatinine 19.7 mg/dL (0.1-20.0) 11/12/16 10:18 Height (in) 65.0 inches 11/12/16 10:18 Weight (lb) 181.0 lbs 11/12/16 10:18 Creatinine Clearance 5 11/12/16 10:18 Urine Sodium 36 mEq/L 09/16/16 19:19 Urine Total Protein 16 mg/dL (5-11.8) H 09/16/16 19:19 Fluid Type Pleural 01/13/17 12:10 Fluid Color Yellow 01/13/17 12:10 Fluid Appearance Hazy 01/13/17 12:10 Fluid WBC 182 /mm3 01/13/17 12:10 Fluid RBC 41 /mm3 01/13/17 12:10 Fluid Seg Neutrophils 85.0 % 01/13/17 12:10 Fluid Lymphocytes 8.0 % 01/13/17 12:10 Fluid Reactive Lymphs 0 % 01/13/17 12:10 Fluid Monocytes 6.0 % 01/13/17 12:10 Fluid Eosinophils 1.0 % 01/13/17 12:10 Fluid Basophils 0 % 01/13/17 12:10 Fluid Total Protein 3.0 (15.0-45.0) L 01/13/17 12:10 Fluid LDH 1322 01/13/17 12:10 Fluid Comment Diff performed 01/13/17 12:10 Vancomycin Trough 2.3 ug/mL (5.0-20.0) L 09/21/16 13:00 Random Vancomycin 26.0 ug/mL (0-40.0) 03/13/17 05:39 Urine Opiates Screen Presumptive negative 09/03/16 15:11 Urine Methadone Screen Presumptive positive 09/03/16 15:11 Ur Barbiturates Screen Presumptive positive 09/03/16 15:11 Ur Phencyclidine Scrn Presumptive negative 09/03/16 15:11 Ur Amphetamines Screen Presumptive negative 09/03/16 15:11 U Benzodiazepines Scrn Presumptive negative 09/03/16 15:11 Urine Cocaine Screen Presumptive negative 09/03/16 15:11 U Marijuana (THC) Screen Presumptive positive 09/03/16 15:11 Drugs of Abuse Note Disclamer 09/03/16 15:11 Rheumatoid Factor 24 IU/ml (0-13) H 09/08/16 11:48 SAHIL Screen Negative (Negative) 09/07/16 09:20 Proteinase 3 (PR3) Ab <1.0 AI (<1.0) 09/07/16 09:20 Myeloperoxidase Ab <1.0 AI (<1.0) 09/07/16 09:20 Sjogren's Antibody <1.0 AI (<1.0) 09/08/16 15:35 Scl-70 Scleroderma Ab <1.0 AI (<1.0) 09/08/16 15:35 Centromere B Antibody <1.0 AI (<1.0) 09/08/16 12:02 Heparin-induced Plt Ab Negative (Negative) 09/29/16 13:35 UF Heparin High Dose 11 % Release 09/29/16 13:35 SUDHIR UFH Low Dose 0.1 6 % Release 09/29/16 13:35 SUDHIR UFH Low Dose 0.5 8 % Release 09/29/16 13:35 Cardiolipid IgG Ab <14 GPL (<=14) 09/12/16 09:59 Cardiolipid IgA Ab <11 APL (<=11) 09/12/16 09:59 Cardiolipid IgM Ab <12 MPL (<=12) 09/12/16 09:59 Complement C3 148 mg/dL (90-180) 09/07/16 09:20 Complement C4 58 mg/dL (16-47) H 09/07/16 09:20 RPR Nonreactive (Nonreactive) 09/08/16 11:48 Hepatitis A IgM Ab Non-reactive (NonReactive) 09/24/16 14:40 Hep Bs Antigen Non-reactive (Negative) 09/24/16 14:40 Hep B Core IgM Ab Non-reactive (NonReactive) 09/24/16 14:40 Hepatitis C Antibody Non-reactive (NonReactive) 09/24/16 14:40 HIV 1&2 Antibody Rapid Non react (Non React) 09/08/16 11:48 HIV P24 Antigen Non react (Non React) 09/08/16 11:48 Miscellaneous Test Flexitest 1 H 01/09/17 18:45 Blood Type A POSITIVE 03/14/17 16:55 Antibody Screen Negative 03/14/17 16:55 DELORIS Antibody Screen Negative 11/24/16 11:20 Crossmatch See Detail 03/14/17 16:55
[2017-03-19] MEDS: LOPRESSOR IV SCH ×2 (14:00→20:00)
[2017-03-19] MEDS: MAXIPIME 1 GM in NACL 0.9% 20 ML IV SCH (14:07)
--- NOTE | 2017-03-19 16:58 | Progress Note ---
Assessment and Plan Acute Hypoxemic Respiratory Failure (now with exacerbation and back on MVS) Hypertension (unable to receive p.o. 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 SBE - stop Amiodarone drip once rate better controlled - continue to hold tube feeds due to continued intolerance; continue reglan at 10mg IV q8h - continue NGT to LIS - continue TPN - remains on amiodarone drip for persistent tachycardia - prn CXR's at this point - appreciate surgery input - continue fentanyl patch for pain issues especially s/p debridement - continue wound care per WCT and RN's (she is s/p surgical debridement) - continue anti-infectives per ID recs (Vancomycin now) - prn CRP & lactate levels if clinically indicated (Follow WBC also) - continue TPN administration (Change to PPN re: vascular access issues) - continue robinul & scopolamine for secretion control - continue to wean FiO2 for sats > 94% - continue bronchodilators and pulmonary toilet - VAP bundle addressed - continue to follow electrolytes and correct as necessary - continue GI & VTE prophylaxis - Continue flu & pneumovax per protocol .....she remains critically ill on life sustaining interventions including MVS and at risk for further deterioration including ....34' CCT ....care plan discussed at length during team rounds ...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 and this has intermittently been conveyed to family Subjective Date of service: 03/19/17 Principal diagnosis: Acute resp failure on MVS; S/P Acute CVA; Acute Encephalopathy; JUANITA Interval history: Patient is seen today for: Acute resp failure on MVS; S/P Acute CVA; Acute Encephalopathy; JUANITA Seen and examined at bedside; 24hour events reviewed; nursing and respiratory care staff consulted; no adverse overnight events reported to me; remains on MVS ; AMs is persistent; remains off vasopressors; No emesis; oropharyngeal secretions large today Objective Vital Signs - 12hr 03/19/17 03/19/17 03/19/17 05:00 05:30 06:00 Temperature Pulse Rate 97 H 93 H 90 Pulse Rate [ Throughout] Respiratory 16 18 15 Rate Respiratory Rate [ Throughout] Blood Pressure 127/93 113/73 123/70 O2 Sat by Pulse 100 100 100 Oximetry O2 Sat by Pulse Oximetry [ Assessment] 03/19/17 03/19/17 03/19/17 06:30 07:00 07:30 Temperature Pulse Rate 89 87 87 Pulse Rate [ Throughout] Respiratory 19 18 22 Rate Respiratory Rate [ Throughout] Blood Pressure 122/82 109/71 109/82 O2 Sat by Pulse 100 Oximetry O2 Sat by Pulse Oximetry [ Assessment] 03/19/17 03/19/17 03/19/17 08:00 08:30 08:45 Temperature 98.9 F Pulse Rate 89 87 87 Pulse Rate [ 87 Throughout] Respiratory 15 18 Rate Respiratory 20 Rate [ Throughout] Blood Pressure 134/88 124/80 119/79 O2 Sat by Pulse 100 100 100 Oximetry O2 Sat by Pulse 100 Oximetry [ Assessment] 03/19/17 03/19/17 03/19/17 09:00 09:30 10:00 Temperature Pulse Rate 88 85 84 Pulse Rate [ Throughout] Respiratory 12 12 12 Rate Respiratory Rate [ Throughout] Blood Pressure 139/91 124/82 120/80 O2 Sat by Pulse 100 100 100 Oximetry O2 Sat by Pulse Oximetry [ Assessment] 03/19/17 03/19/17 03/19/17 10:30 11:00 11:31 Temperature Pulse Rate 85 82 86 Pulse Rate [ Throughout] Respiratory 13 12 12 Rate Respiratory Rate [ Throughout] Blood Pressure 129/81 122/79 134/86 O2 Sat by Pulse 100 100 100 Oximetry O2 Sat by Pulse Oximetry [ Assessment] 03/19/17 03/19/17 03/19/17 11:55 12:00 12:30 Temperature 97.4 F L Pulse Rate 86 86 Pulse Rate [ Throughout] Respiratory 12 12 Rate Respiratory Rate [ Throughout] Blood Pressure 118/83 125/78 O2 Sat by Pulse 100 100 Oximetry O2 Sat by Pulse Oximetry [ Assessment] 03/19/17 03/19/17 03/19/17 13:00 13:30 13:45 Temperature Pulse Rate 84 89 85 Pulse Rate [ Throughout] Respiratory 12 20 Rate Respiratory Rate [ Throughout] Blood Pressure 119/93 124/95 141/89 O2 Sat by Pulse 100 100 100 Oximetry O2 Sat by Pulse Oximetry [ Assessment] 01/03/19/17 03/19/17 13:58 14:00 16:00 Temperature 97.4 F L Pulse Rate 84 Pulse Rate [ 86 Throughout] Respiratory 12 Rate Respiratory 13 Rate [ Throughout] Blood Pressure 136/83 O2 Sat by Pulse 100 Oximetry O2 Sat by Pulse Oximetry [ Assessment] 03/19/17 16:20 Temperature Pulse Rate 105 H Pulse Rate [ Throughout] Respiratory Rate Respiratory Rate [ Throughout] Blood Pressure 175/78 O2 Sat by Pulse 98 Oximetry O2 Sat by Pulse 98 Oximetry [ Assessment] Constitutional: appears uncomfortable, other (not tracking) Eyes: non-icteric, other (tracheostomy tube in midline of neck) ENT: oropharynx moist, oropharyngeal exudate pre, other (midline tracheostomy tube) Neck: supple, no lymphadenopathy, no JVD, other (no thyromegaly) Effort: mildly labored Ascultation: Bilateral: rhonchi (and referred upper airway sounds) Percussion: Bilateral: not dull Cardiovascular: regular rate and rhythm, other (no rubs / murmurs) Gastrointestinal: hypoactive bowel sounds, soft, non-tender, non-distended, other (RLQ & LUQ stomas with colostomy bags) Integumentary: decubitus ulcer (sacral; stage 4 s/p surgical debridement), other (no rash; no cellulitis; poor turgor) Extremities: no cyanosis, pulses normal, no ischemia or petechiae, edema (1+ bilaterally) Neurologic: pupils equal and round, unable to assess, other (encephalopathic) Psychiatric: other (unable to assess) CBC and BMP: 03/15/17 05:03 03/19/17 Unknown ABG, PT/INR, D-dimer: ABG POC ABG pH 7.518 (7.35-7.45) H 03/03/17 20: ABG pH 7.450 pH Units (7.350-7.450) 12/05/16 Unknown POC ABG pCO2 28.8 (35-45) L 03/03/17 20:17 ABG pCO2 29.6 mm Hg 12/05/16 Unknown POC ABG pO2 61 (80-105) L 03/03/17 20:17 ABG pO2 75.2 mm Hg (80.0-90.0) L 12/05/16 Unknown POC ABG HCO3 23.4 03/03/17 20:17 POC ABG Total CO2 24 03/03/17 20:17 POC ABG O2 Sat 94 03/03/17 20:17 ABG O2 Saturation 96.8 % (95.0-99.0) 12/05/16 Unknown PT/INR, D-dimer PT 15.4 Sec. (12.2-14.9) H 01/13/17 15:50 INR 1.16 (0.87-1.13) H 01/13/17 15:50 Abnormal lab findings: Abnormal Labs 09/03/16 09/03/16 09/03/16 00:03 00:10 00:10 WBC 13.9 H RBC 5.95 H Hgb Hct 44.0 H MCV 74 L MCH 22 L MCHC RDW 17.5 H Plt Count Lymph % (Auto) [place] % (Auto) Lymph # [place] # Baso # Seg Neutrophils % Seg Neuts % (Manual) Lymphocytes % (Manual) 54.0 H Monocytes % (Manual) Eosinophils % (Manual) Basophils % (Manual) Nucleated RBC % Seg Neutrophils # Seg Neutrophils # Man Lymphocytes # (Manual) 7.5 H Monocytes # (Manual) Eosinophils # (Manual) Basophils # (Manual) PT INR Fibrinogen dRVVT Confirm Interp Factor V Activity POC ABG pH POC ABG pCO2 POC ABG pO2 ABG pO2 ABG HCO3 ABG Base Excess ABG Hemoglobin Oxyhemoglobin Sodium Potassium 2.8 L* Chloride Carbon Dioxide 21 L BUN Creatinine 1.7 H Glucose 159 H POC Glucose 177 H Lactic Acid Calcium Ionized Calcium Phosphorus Magnesium Direct Bilirubin AST ALT Alkaline Phosphatase Lactate Dehydrogenase Troponin T C-Reactive Protein Total Protein Albumin Prealbumin Triglycerides Cholesterol LDL Cholesterol Direct HDL Cholesterol 25-OH Vitamin D Total PTH Intact Urine pH Urine WBC (Auto) Urine Creatinine Urine Total Protein Fluid Total Protein Vancomycin Trough Rheumatoid Factor Complement C4 Miscellaneous Test Crossmatch 09/03/16 09/03/16 09/03/16 12:12 15:07 16:20 WBC RBC Hgb Hct MCV MCH MCHC RDW Plt Count Lymph % (Auto) [place] % (Auto) Lymph # [place] # Baso # Seg Neutrophils % Seg Neuts % (Manual) Lymphocytes % (Manual) Monocytes % (Manual) Eosinophils % (Manual) Basophils % (Manual) Nucleated RBC % Seg Neutrophils # Seg Neutrophils # Man Lymphocytes # (Manual) Monocytes # (Manual) Eosinophils # (Manual) Basophils # (Manual) PT INR Fibrinogen dRVVT Confirm Interp Factor V Activity POC ABG pH 7.452 H POC ABG pCO2 POC ABG pO2 ABG pO2 ABG HCO3 ABG Base Excess ABG Hemoglobin Oxyhemoglobin Sodium Potassium Chloride Carbon Dioxide BUN Creatinine Glucose POC Glucose 178 H Lactic Acid Calcium Ionized Calcium Phosphorus 2.20 L Magnesium 1.60 L Direct Bilirubin AST ALT Alkaline Phosphatase Lactate Dehydrogenase Troponin T C-Reactive Protein Total Protein Albumin Prealbumin Triglycerides Cholesterol LDL Cholesterol Direct HDL Cholesterol 25-OH Vitamin D Total PTH Intact Urine pH Urine WBC (Auto) Urine Creatinine Urine Total Protein Fluid Total Protein Vancomycin Trough Rheumatoid Factor Complement C4 Miscellaneous Test Crossmatch 09/03/16 09/03/16 09/03/16 17:57 17:58 23:50 WBC RBC Hgb Hct MCV MCH MCHC RDW Plt Count Lymph % (Auto) [place] % (Auto) Lymph # [place] # Baso # Seg Neutrophils % Seg Neuts % (Manual) Lymphocytes % (Manual) Monocytes % (Manual) Eosinophils % (Manual) Basophils % (Manual) Nucleated RBC % Seg Neutrophils # Seg Neutrophils # Man Lymphocytes # (Manual) Monocytes # (Manual) Eosinophils # (Manual) Basophils # (Manual) PT INR Fibrinogen dRVVT Confirm Interp Factor V Activity POC ABG pH POC ABG pCO2 POC ABG pO2 ABG pO2 ABG HCO3 ABG Base Excess ABG Hemoglobin Oxyhemoglobin Sodium Potassium Chloride Carbon Dioxide BUN Creatinine Glucose POC Glucose 162 H 145 H Lactic Acid Calcium Ionized Calcium Phosphorus 2.30 L Magnesium Direct Bilirubin AST ALT Alkaline Phosphatase Lactate Dehydrogenase Troponin T C-Reactive Protein Total Protein Albumin Prealbumin Triglycerides Cholesterol LDL Cholesterol Direct HDL Cholesterol 25-OH Vitamin D Total PTH Intact Urine pH Urine WBC (Auto) Urine Creatinine Urine Total Protein Fluid Total Protein Vancomycin Trough Rheumatoid Factor Complement C4 Miscellaneous Test Crossmatch 09/04/16 09/04/16 09/04/16 03:31 03:31 05:42 WBC RBC Hgb 9.7 L D Hct MCV 72 L MCH 23 L MCHC RDW 17.5 H Plt Count Lymph % (Auto) 11.1 L [place] % (Auto) Lymph # [place] # Baso # Seg Neutrophils % 84.3 H Seg Neuts % (Manual) Lymphocytes % (Manual) Monocytes % (Manual) Eosinophils % (Manual) Basophils % (Manual) Nucleated RBC % Seg Neutrophils # 8.9 H Seg Neutrophils # Man Lymphocytes # (Manual) Monocytes # (Manual) Eosinophils # (Manual) Basophils # (Manual) PT INR Fibrinogen dRVVT Confirm Interp Factor V Activity POC ABG pH POC ABG pCO2 POC ABG pO2 ABG pO2 ABG HCO3 ABG Base Excess ABG Hemoglobin Oxyhemoglobin Sodium 135 L Potassium 2.9 L* Chloride 97.2 L Carbon Dioxide 19 L BUN Creatinine 1.7 H Glucose 170 H POC Glucose 152 H Lactic Acid Calcium Ionized Calcium Phosphorus Magnesium Direct Bilirubin AST ALT Alkaline Phosphatase Lactate Dehydrogenase Troponin T C-Reactive Protein Total Protein Albumin Prealbumin Triglycerides 160 H Cholesterol LDL Cholesterol Direct HDL Cholesterol 31 L 25-OH Vitamin D Total PTH Intact Urine pH Urine WBC (Auto) Urine Creatinine Urine Total Protein Fluid Total Protein Vancomycin Trough Rheumatoid Factor Complement C4 Miscellaneous Test Crossmatch 09/04/16 09/04/16 09/04/16 11:34 17:46 23:29 WBC RBC Hgb Hct MCV MCH MCHC RDW Plt Count Lymph % (Auto) [place] % (Auto) Lymph # [place] # Baso # Seg Neutrophils % Seg Neuts % (Manual) Lymphocytes % (Manual) Monocytes % (Manual) Eosinophils % (Manual) Basophils % (Manual) Nucleated RBC % Seg Neutrophils # Seg Neutrophils # Man Lymphocytes # (Manual) Monocytes # (Manual) Eosinophils # (Manual) Basophils # (Manual) PT INR Fibrinogen dRVVT Confirm Interp Factor V Activity POC ABG pH POC ABG pCO2 POC ABG pO2 ABG pO2 ABG HCO3 ABG Base Excess ABG Hemoglobin Oxyhemoglobin Sodium Potassium Chloride Carbon Dioxide BUN Creatinine Glucose POC Glucose 165 H 210 H 139 H Lactic Acid Calcium Ionized Calcium Phosphorus Magnesium Direct Bilirubin AST ALT Alkaline Phosphatase Lactate Dehydrogenase Troponin T C-Reactive Protein Total Protein Albumin Prealbumin Triglycerides Cholesterol LDL Cholesterol Direct HDL Cholesterol 25-OH Vitamin D Total PTH Intact Urine pH Urine WBC (Auto) Urine Creatinine Urine Total Protein Fluid Total Protein Vancomycin Trough Rheumatoid Factor Complement C4 Miscellaneous Test Crossmatch 09/05/16 09/05/16 09/05/16 04:05 04:05 05:38 WBC RBC Hgb Hct MCV 76 L D MCH 23 L MCHC RDW 17.8 H Plt Count Lymph % (Auto) [place] % (Auto) Lymph # [place] # Baso # Seg Neutrophils % Seg Neuts % (Manual) Lymphocytes % (Manual) Monocytes % (Manual) Eosinophils % (Manual) Basophils % (Manual) Nucleated RBC % Seg Neutrophils # Seg Neutrophils # Man Lymphocytes # (Manual) Monocytes # (Manual) Eosinophils # (Manual) Basophils # (Manual) PT INR Fibrinogen dRVVT Confirm Interp Factor V Activity POC ABG pH POC ABG pCO2 POC ABG pO2 ABG pO2 ABG HCO3 ABG Base Excess ABG Hemoglobin Oxyhemoglobin Sodium 134 L Potassium Chloride Carbon Dioxide 18 L BUN Creatinine 1.8 H Glucose 192 H POC Glucose 175 H Lactic Acid Calcium Ionized Calcium Phosphorus Magnesium Direct Bilirubin AST ALT Alkaline Phosphatase Lactate Dehydrogenase Troponin T C-Reactive Protein Total Protein Albumin Prealbumin Triglycerides Cholesterol LDL Cholesterol Direct HDL Cholesterol 25-OH Vitamin D Total PTH Intact Urine pH Urine WBC (Auto) Urine Creatinine Urine Total Protein Fluid Total Protein Vancomycin Trough Rheumatoid Factor Complement C4 Miscellaneous Test Crossmatch 09/05/16 09/05/16 09/05/16 11:38 17:48 23:22 WBC RBC Hgb Hct MCV MCH MCHC RDW Plt Count Lymph % (Auto) [place] % (Auto) Lymph # [place] # Baso # Seg Neutrophils % Seg Neuts % (Manual) Lymphocytes % (Manual) Monocytes % (Manual) Eosinophils % (Manual) Basophils % (Manual) Nucleated RBC % Seg Neutrophils # Seg Neutrophils # Man Lymphocytes # (Manual) Monocytes # (Manual) Eosinophils # (Manual) Basophils # (Manual) PT INR Fibrinogen dRVVT Confirm Interp Factor V Activity POC ABG pH POC ABG pCO2 POC ABG pO2 ABG pO2 ABG HCO3 ABG Base Excess ABG Hemoglobin Oxyhemoglobin Sodium Potassium Chloride Carbon Dioxide BUN Creatinine Glucose POC Glucose 164 H 186 H 195 H Lactic Acid Calcium Ionized Calcium Phosphorus Magnesium Direct Bilirubin AST ALT Alkaline Phosphatase Lactate Dehydrogenase Troponin T C-Reactive Protein Total Protein Albumin Prealbumin Triglycerides Cholesterol LDL Cholesterol Direct HDL Cholesterol 25-OH Vitamin D Total PTH Intact Urine pH Urine WBC (Auto) Urine Creatinine Urine Total Protein Fluid Total Protein Vancomycin Trough Rheumatoid Factor Complement C4 Miscellaneous Test Crossmatch 09/06/16 09/06/16 09/06/16 04:12 05:59 07:32 WBC RBC Hgb Hct MCV MCH MCHC RDW Plt Count Lymph % (Auto) [place] % (Auto) Lymph # [place] # Baso # Seg Neutrophils % Seg Neuts % (Manual) Lymphocytes % (Manual) Monocytes % (Manual) Eosinophils % (Manual) Basophils % (Manual) Nucleated RBC % Seg Neutrophils # Seg Neutrophils # Man Lymphocytes # (Manual) Monocytes # (Manual) Eosinophils # (Manual) Basophils # (Manual) PT INR Fibrinogen dRVVT Confirm Interp Factor V Activity POC ABG pH 7.514 H POC ABG pCO2 29.1 L POC ABG pO2 72 L ABG pO2 ABG HCO3 ABG Base Excess ABG Hemoglobin Oxyhemoglobin Sodium 133 L Potassium 3.4 L Chloride 94.9 L Carbon Dioxide 19 L BUN 30 H Creatinine 2.1 H Glucose 139 H POC Glucose 146 H Lactic Acid Calcium Ionized Calcium Phosphorus Magnesium Direct Bilirubin AST ALT Alkaline Phosphatase Lactate Dehydrogenase Troponin T C-Reactive Protein Total Protein Albumin Prealbumin Triglycerides Cholesterol LDL Cholesterol Direct HDL Cholesterol 25-OH Vitamin D Total PTH Intact Urine pH Urine WBC (Auto) Urine Creatinine Urine Total Protein Fluid Total Protein Vancomycin Trough Rheumatoid Factor Complement C4 Miscellaneous Test Crossmatch 09/06/16 09/06/16 09/06/16 11:57 17:58 19:02 WBC RBC Hgb Hct MCV MCH MCHC RDW Plt Count Lymph % (Auto) [place] % (Auto) Lymph # [place] # Baso # Seg Neutrophils % Seg Neuts % (Manual) Lymphocytes % (Manual) Monocytes % (Manual) Eosinophils % (Manual) Basophils % (Manual) Nucleated RBC % Seg Neutrophils # Seg Neutrophils # Man Lymphocytes # (Manual) Monocytes # (Manual) Eosinophils # (Manual) Basophils # (Manual) PT INR Fibrinogen dRVVT Confirm Interp Factor V Activity POC ABG pH 7.465 H POC ABG pCO2 32.0 L POC ABG pO2 ABG pO2 ABG HCO3 ABG Base Excess ABG Hemoglobin Oxyhemoglobin Sodium Potassium Chloride Carbon Dioxide BUN Creatinine Glucose POC Glucose 165 H 160 H Lactic Acid Calcium Ionized Calcium Phosphorus Magnesium Direct Bilirubin AST ALT Alkaline Phosphatase Lactate Dehydrogenase Troponin T C-Reactive Protein Total Protein Albumin Prealbumin Triglycerides Cholesterol LDL Cholesterol Direct HDL Cholesterol 25-OH Vitamin D Total PTH Intact Urine pH Urine WBC (Auto) Urine Creatinine Urine Total Protein Fluid Total Protein Vancomycin Trough Rheumatoid Factor Complement C4 Miscellaneous Test Crossmatch 09/06/16 09/07/16 09/07/16 23:45 02:47 02:47 WBC RBC Hgb Hct MCV MCH MCHC RDW Plt Count Lymph % (Auto) [place] % (Auto) Lymph # [place] # Baso # Seg Neutrophils % Seg Neuts % (Manual) Lymphocytes % (Manual) Monocytes % (Manual) Eosinophils % (Manual) Basophils % (Manual) Nucleated RBC % Seg Neutrophils # Seg Neutrophils # Man Lymphocytes # (Manual) Monocytes # (Manual) Eosinophils # (Manual) Basophils # (Manual) PT INR Fibrinogen dRVVT Confirm Interp Factor V Activity POC ABG pH POC ABG pCO2 POC ABG pO2 ABG pO2 ABG HCO3 ABG Base Excess ABG Hemoglobin Oxyhemoglobin Sodium Potassium Chloride Carbon Dioxide BUN Creatinine Glucose POC Glucose 204 H Lactic Acid Calcium Ionized Calcium Phosphorus Magnesium Direct Bilirubin AST ALT Alkaline Phosphatase Lactate Dehydrogenase Troponin T C-Reactive Protein Total Protein Albumin Prealbumin Triglycerides Cholesterol LDL Cholesterol Direct HDL Cholesterol 25-OH Vitamin D Total PTH Intact Urine pH Urine WBC (Auto) 68.0 H Urine Creatinine 106.1 H Urine Total Protein Fluid Total Protein Vancomycin Trough Rheumatoid Factor Complement C4 Miscellaneous Test Crossmatch 09/07/16 09/07/16 09/07/16 04:50 06:19 06:39 WBC RBC Hgb Hct MCV MCH MCHC RDW Plt Count Lymph % (Auto) [place] % (Auto) Lymph # [place] # Baso # Seg Neutrophils % Seg Neuts % (Manual) Lymphocytes % (Manual) Monocytes % (Manual) Eosinophils % (Manual) Basophils % (Manual) Nucleated RBC % Seg Neutrophils # Seg Neutrophils # Man Lymphocytes # (Manual) Monocytes # (Manual) Eosinophils # (Manual) Basophils # (Manual) PT INR Fibrinogen dRVVT Confirm Interp Factor V Activity POC ABG pH 7.457 H POC ABG pCO2 32.1 L POC ABG pO2 76 L ABG pO2 ABG HCO3 ABG Base Excess ABG Hemoglobin Oxyhemoglobin Sodium 132 L Potassium Chloride 94.7 L Carbon Dioxide BUN 53 H Creatinine 2.9 H Glucose 151 H POC Glucose 149 H Lactic Acid Calcium Ionized Calcium Phosphorus Magnesium Direct Bilirubin AST ALT Alkaline Phosphatase Lactate Dehydrogenase Troponin T C-Reactive Protein Total Protein Albumin Prealbumin Triglycerides Cholesterol LDL Cholesterol Direct HDL Cholesterol 25-OH Vitamin D Total PTH Intact Urine pH Urine WBC (Auto) Urine Creatinine Urine Total Protein Fluid Total Protein Vancomycin Trough Rheumatoid Factor Complement C4 Miscellaneous Test Crossmatch 09/07/16 09/07/16 09/07/16 09:20 11:43 11:43 WBC 19.4 H RBC Hgb 8.3 L Hct 26.4 L D MCV 72 L D MCH 22 L MCHC RDW 17.9 H Plt Count Lymph % (Auto) 8.5 L [place] % (Auto) Lymph # [place] # 1.0 H Baso # Seg Neutrophils % 85.8 H Seg Neuts % (Manual) Lymphocytes % (Manual) Monocytes % (Manual) Eosinophils % (Manual) Basophils % (Manual) Nucleated RBC % Seg Neutrophils # 16.6 H Seg Neutrophils # Man Lymphocytes # (Manual) Monocytes # (Manual) Eosinophils # (Manual) Basophils # (Manual) PT INR Fibrinogen dRVVT Confirm Interp Factor V Activity POC ABG pH POC ABG pCO2 POC ABG pO2 ABG pO2 ABG HCO3 ABG Base Excess ABG Hemoglobin Oxyhemoglobin Sodium 134 L Potassium Chloride 97.2 L Carbon Dioxide 20 L BUN 58 H Creatinine 2.9 H Glucose 147 H POC Glucose Lactic Acid Calcium Ionized Calcium Phosphorus 2.40 L Magnesium 2.40 H Direct Bilirubin AST ALT Alkaline Phosphatase Lactate Dehydrogenase Troponin T C-Reactive Protein Total Protein 5.8 L Albumin 2.2 L Prealbumin Triglycerides Cholesterol LDL Cholesterol Direct HDL Cholesterol 25-OH Vitamin D Total PTH Intact Urine pH Urine WBC (Auto) Urine Creatinine Urine Total Protein Fluid Total Protein Vancomycin Trough Rheumatoid Factor Complement C4 58 H Miscellaneous Test Crossmatch 09/07/16 09/07/16 09/07/16 11:50 16:00 17:31 WBC RBC Hgb Hct MCV MCH MCHC RDW Plt Count Lymph % (Auto) [place] % (Auto) Lymph # [place] # Baso # Seg Neutrophils % Seg Neuts % (Manual) Lymphocytes % (Manual) Monocytes % (Manual) Eosinophils % (Manual) Basophils % (Manual) Nucleated RBC % Seg Neutrophils # Seg Neutrophils # Man Lymphocytes # (Manual) Monocytes # (Manual) Eosinophils # (Manual) Basophils # (Manual) PT INR Fibrinogen dRVVT Confirm Interp Factor V Activity POC ABG pH POC ABG pCO2 POC ABG pO2 158 H ABG pO2 ABG HCO3 ABG Base Excess ABG Hemoglobin Oxyhemoglobin Sodium Potassium Chloride Carbon Dioxide BUN Creatinine Glucose POC Glucose 175 H Lactic Acid Calcium Ionized Calcium Phosphorus Magnesium Direct Bilirubin AST ALT Alkaline Phosphatase Lactate Dehydrogenase Troponin T C-Reactive Protein Total Protein Albumin Prealbumin Triglycerides Cholesterol LDL Cholesterol Direct HDL Cholesterol 25-OH Vitamin D Total PTH Intact Urine pH Urine WBC (Auto) Urine Creatinine 66.3 H Urine Total Protein Fluid Total Protein Vancomycin Trough Rheumatoid Factor Complement C4 Miscellaneous Test Crossmatch 09/07/16 09/08/16 09/08/16 23:50 05:46 06:18 WBC 17.8 H RBC 3.58 L Hgb 8.1 L Hct 25.5 L MCV 71 L MCH 23 L MCHC RDW 18.4 H Plt Count Lymph % (Auto) [place] % (Auto) Lymph # [place] # Baso # Seg Neutrophils % Seg Neuts % (Manual) 92.0 H Lymphocytes % (Manual) 6.0 L Monocytes % (Manual) Eosinophils % (Manual) Basophils % (Manual) Nucleated RBC % Seg Neutrophils # Seg Neutrophils # Man 16.4 H Lymphocytes # (Manual) 1.1 L Monocytes # (Manual) Eosinophils # (Manual) Basophils # (Manual) PT INR Fibrinogen dRVVT Confirm Interp Factor V Activity POC ABG pH POC ABG pCO2 34.3 L POC ABG pO2 71 L ABG pO2 ABG HCO3 ABG Base Excess ABG Hemoglobin Oxyhemoglobin Sodium Potassium Chloride Carbon Dioxide BUN Creatinine Glucose POC Glucose 216 H Lactic Acid Calcium Ionized Calcium Phosphorus Magnesium Direct Bilirubin AST ALT Alkaline Phosphatase Lactate Dehydrogenase Troponin T C-Reactive Protein Total Protein Albumin Prealbumin Triglycerides Cholesterol LDL Cholesterol Direct HDL Cholesterol 25-OH Vitamin D Total PTH Intact Urine pH Urine WBC (Auto) Urine Creatinine Urine Total Protein Fluid Total Protein Vancomycin Trough Rheumatoid Factor Complement C4 Miscellaneous Test Crossmatch 09/08/16 09/08/16 09/08/16 06:18 06:51 10:55 WBC RBC Hgb Hct MCV MCH MCHC RDW Plt Count Lymph % (Auto) [place] % (Auto) Lymph # [place] # Baso # Seg Neutrophils % Seg Neuts % (Manual) Lymphocytes % (Manual) Monocytes % (Manual) Eosinophils % (Manual) Basophils % (Manual) Nucleated RBC % Seg Neutrophils # Seg Neutrophils # Man Lymphocytes # (Manual) Monocytes # (Manual) Eosinophils # (Manual) Basophils # (Manual) PT INR Fibrinogen dRVVT Confirm Interp Factor V Activity POC ABG pH POC ABG pCO2 POC ABG pO2 ABG pO2 ABG HCO3 ABG Base Excess ABG Hemoglobin Oxyhemoglobin Sodium 133 L Potassium Chloride 96.9 L Carbon Dioxide 20 L BUN 63 H Creatinine 2.7 H Glucose 195 H POC Glucose 204 H 169 H Lactic Acid Calcium Ionized Calcium Phosphorus Magnesium Direct Bilirubin AST ALT Alkaline Phosphatase Lactate Dehydrogenase Troponin T C-Reactive Protein Total Protein Albumin Prealbumin Triglycerides Cholesterol LDL Cholesterol Direct HDL Cholesterol 25-OH Vitamin D Total PTH Intact Urine pH Urine WBC (Auto) Urine Creatinine Urine Total Protein Fluid Total Protein Vancomycin Trough Rheumatoid Factor Complement C4 Miscellaneous Test Crossmatch 09/08/16 09/08/1617 11:48 11:48 11:48 WBC RBC Hgb Hct MCV MCH MCHC RDW Plt Count Lymph % (Auto) [place] % (Auto) Lymph # [place] # Baso # Seg Neutrophils % Seg Neuts % (Manual) Lymphocytes % (Manual) Monocytes % (Manual) Eosinophils % (Manual) Basophils % (Manual) Nucleated RBC % Seg Neutrophils # Seg Neutrophils # Man Lymphocytes # (Manual) Monocytes # (Manual) Eosinophils # (Manual) Basophils # (Manual) PT INR Fibrinogen 750 H dRVVT Confirm Interp Factor V Activity POC ABG pH POC ABG pCO2 POC ABG pO2 ABG pO2 ABG HCO3 ABG Base Excess ABG Hemoglobin Oxyhemoglobin Sodium Potassium Chloride Carbon Dioxide BUN Creatinine Glucose POC Glucose Lactic Acid Calcium Ionized Calcium Phosphorus Magnesium Direct Bilirubin AST ALT Alkaline Phosphatase Lactate Dehydrogenase Troponin T C-Reactive Protein 15.70 H Total Protein Albumin Prealbumin Triglycerides Cholesterol LDL Cholesterol Direct HDL Cholesterol 25-OH Vitamin D Total PTH Intact Urine pH Urine WBC (Auto) Urine Creatinine Urine Total Protein Fluid Total Protein Vancomycin Trough Rheumatoid Factor 24 H Complement C4 Miscellaneous Test Crossmatch 09/08/16 09/08/16 09/09/16 15:35 18:25 00:24 WBC RBC Hgb Hct MCV MCH MCHC RDW Plt Count Lymph % (Auto) [place] % (Auto) Lymph # [place] # Baso # Seg Neutrophils % Seg Neuts % (Manual) Lymphocytes % (Manual) Monocytes % (Manual) Eosinophils % (Manual) Basophils % (Manual) Nucleated RBC % Seg Neutrophils # Seg Neutrophils # Man Lymphocytes # (Manual) Monocytes # (Manual) Eosinophils # (Manual) Basophils # (Manual) PT INR Fibrinogen dRVVT Confirm Interp Factor V Activity 182 H POC ABG pH POC ABG pCO2 POC ABG pO2 ABG pO2 ABG HCO3 ABG Base Excess ABG Hemoglobin Oxyhemoglobin Sodium Potassium Chloride Carbon Dioxide BUN Creatinine Glucose POC Glucose 184 H 216 H Lactic Acid Calcium Ionized Calcium Phosphorus Magnesium Direct Bilirubin AST ALT Alkaline Phosphatase Lactate Dehydrogenase Troponin T C-Reactive Protein Total Protein Albumin Prealbumin Triglycerides Cholesterol LDL Cholesterol Direct HDL Cholesterol 25-OH Vitamin D Total PTH Intact Urine pH Urine WBC (Auto) Urine Creatinine Urine Total Protein Fluid Total Protein Vancomycin Trough Rheumatoid Factor Complement C4 Miscellaneous Test Crossmatch 09/09/16 09/09/16 09/09/16 03:00 03:00 04:04 WBC 27.9 H RBC Hgb 8.7 L Hct 28.1 L MCV 72 L MCH 22 L MCHC RDW 18.4 H Plt Count 485 H Lymph % (Auto) [place] % (Auto) Lymph # [place] # Baso # Seg Neutrophils % Seg Neuts % (Manual) 77.0 H Lymphocytes % (Manual) 9.0 L Monocytes % (Manual) Eosinophils % (Manual) Basophils % (Manual) Nucleated RBC % Seg Neutrophils # Seg Neutrophils # Man 21.5 H Lymphocytes # (Manual) Monocytes # (Manual) 2.0 H Eosinophils # (Manual) Basophils # (Manual) PT INR Fibrinogen dRVVT Confirm Interp Factor V Activity POC ABG pH POC ABG pCO2 POC ABG pO2 121 H ABG pO2 ABG HCO3 ABG Base Excess ABG Hemoglobin Oxyhemoglobin Sodium 135 L Potassium Chloride 96.3 L Carbon Dioxide 21 L BUN 83 H Creatinine 3.0 H Glucose 135 H POC Glucose Lactic Acid Calcium Ionized Calcium Phosphorus Magnesium Direct Bilirubin AST ALT Alkaline Phosphatase Lactate Dehydrogenase Troponin T C-Reactive Protein Total Protein Albumin Prealbumin Triglycerides Cholesterol LDL Cholesterol Direct HDL Cholesterol 25-OH Vitamin D Total PTH Intact Urine pH Urine WBC (Auto) Urine Creatinine Urine Total Protein Fluid Total Protein Vancomycin Trough Rheumatoid Factor Complement C4 Miscellaneous Test Crossmatch 09/09/16 09/09/16 09/09/16 05:41 11:55 14:13 WBC RBC Hgb Hct MCV MCH MCHC RDW Plt Count Lymph % (Auto) [place] % (Auto) Lymph # [place] # Baso # Seg Neutrophils % Seg Neuts % (Manual) Lymphocytes % (Manual) Monocytes % (Manual) Eosinophils % (Manual) Basophils % (Manual) Nucleated RBC % Seg Neutrophils # Seg Neutrophils # Man Lymphocytes # (Manual) Monocytes # (Manual) Eosinophils # (Manual) Basophils # (Manual) PT INR Fibrinogen dRVVT Confirm Interp Factor V Activity POC ABG pH POC ABG pCO2 POC ABG pO2 ABG pO2 ABG HCO3 ABG Base Excess ABG Hemoglobin Oxyhemoglobin Sodium Potassium Chloride Carbon Dioxide BUN Creatinine Glucose POC Glucose 155 H 186 H Lactic Acid Calcium Ionized Calcium Phosphorus Magnesium Direct Bilirubin AST ALT Alkaline Phosphatase Lactate Dehydrogenase Troponin T C-Reactive Protein Total Protein Albumin Prealbumin Triglycerides Cholesterol LDL Cholesterol Direct HDL Cholesterol 25-OH Vitamin D Total PTH Intact Urine pH Urine WBC (Auto) 25.0 H Urine Creatinine Urine Total Protein Fluid Total Protein Vancomycin Trough Rheumatoid Factor Complement C4 Miscellaneous Test Crossmatch 09/09/16 09/09/16 09/10/16 17:33 23:13 05:09 WBC RBC Hgb Hct MCV MCH MCHC RDW Plt Count Lymph % (Auto) [place] % (Auto) Lymph # [place] # Baso # Seg Neutrophils % Seg Neuts % (Manual) Lymphocytes % (Manual) Monocytes % (Manual) Eosinophils % (Manual) Basophils % (Manual) Nucleated RBC % Seg Neutrophils # Seg Neutrophils # Man Lymphocytes # (Manual) Monocytes # (Manual) Eosinophils # (Manual) Basophils # (Manual) PT INR Fibrinogen dRVVT Confirm Interp Factor V Activity POC ABG pH POC ABG pCO2 POC ABG pO2 74 L ABG pO2 ABG HCO3 ABG Base Excess ABG Hemoglobin Oxyhemoglobin Sodium Potassium Chloride Carbon Dioxide BUN Creatinine Glucose POC Glucose 211 H 215 H Lactic Acid Calcium Ionized Calcium Phosphorus Magnesium Direct Bilirubin AST ALT Alkaline Phosphatase Lactate Dehydrogenase Troponin T C-Reactive Protein Total Protein Albumin Prealbumin Triglycerides Cholesterol LDL Cholesterol Direct HDL Cholesterol 25-OH Vitamin D Total PTH Intact Urine pH Urine WBC (Auto) Urine Creatinine Urine Total Protein Fluid Total Protein Vancomycin Trough Rheumatoid Factor Complement C4 Miscellaneous Test Crossmatch 09/10/16 09/10/16 09/10/16 05:17 05:17 11:31 WBC 15.8 H RBC 3.25 L Hgb 7.3 L Hct 22.9 L MCV 71 L MCH 23 L MCHC RDW 18.4 H Plt Count Lymph % (Auto) [place] % (Auto) Lymph # [place] # Baso # Seg Neutrophils % Seg Neuts % (Manual) 91.0 H Lymphocytes % (Manual) 4.0 L Monocytes % (Manual) Eosinophils % (Manual) Basophils % (Manual) Nucleated RBC % Seg Neutrophils # Seg Neutrophils # Man 14.4 H Lymphocytes # (Manual) 0.6 L Monocytes # (Manual) Eosinophils # (Manual) Basophils # (Manual) PT INR Fibrinogen dRVVT Confirm Interp Factor V Activity POC ABG pH POC ABG pCO2 POC ABG pO2 ABG pO2 ABG HCO3 ABG Base Excess ABG Hemoglobin Oxyhemoglobin Sodium Potassium Chloride Carbon Dioxide 21 L BUN 93 H Creatinine 2.9 H Glucose 146 H POC Glucose 188 H Lactic Acid Calcium 8.1 L Ionized Calcium Phosphorus Magnesium Direct Bilirubin AST ALT Alkaline Phosphatase Lactate Dehydrogenase Troponin T C-Reactive Protein Total Protein Albumin Prealbumin Triglycerides Cholesterol LDL Cholesterol Direct HDL Cholesterol 25-OH Vitamin D Total PTH Intact Urine pH Urine WBC (Auto) Urine Creatinine Urine Total Protein Fluid Total Protein Vancomycin Trough Rheumatoid Factor Complement C4 Miscellaneous Test Crossmatch 09/10/16 09/10/16 09/10/16 13:17 17:20 23:32 WBC RBC Hgb Hct MCV MCH MCHC RDW Plt Count Lymph % (Auto) [place] % (Auto) Lymph # [place] # Baso # Seg Neutrophils % Seg Neuts % (Manual) Lymphocytes % (Manual) Monocytes % (Manual) Eosinophils % (Manual) Basophils % (Manual) Nucleated RBC % Seg Neutrophils # Seg Neutrophils # Man Lymphocytes # (Manual) Monocytes # (Manual) Eosinophils # (Manual) Basophils # (Manual) PT INR Fibrinogen dRVVT Confirm Interp Factor V Activity POC ABG pH POC ABG pCO2 POC ABG pO2 ABG pO2 ABG HCO3 ABG Base Excess ABG Hemoglobin Oxyhemoglobin Sodium Potassium Chloride Carbon Dioxide BUN Creatinine Glucose POC Glucose 199 H 186 H Lactic Acid Calcium Ionized Calcium Phosphorus Magnesium Direct Bilirubin AST ALT Alkaline Phosphatase Lactate Dehydrogenase Troponin T C-Reactive Protein Total Protein Albumin Prealbumin Triglycerides Cholesterol LDL Cholesterol Direct HDL Cholesterol 25-OH Vitamin D Total PTH Intact Urine pH Urine WBC (Auto) Urine Creatinine Urine Total Protein Fluid Total Protein Vancomycin Trough Rheumatoid Factor Complement C4 Miscellaneous Test Crossmatch See Detail 09/11/16 09/11/16 09/11/16 05:10 05:10 05:17 WBC 28.4 H RBC Hgb 9.2 L Hct 29.3 L D MCV 73 L MCH 23 L MCHC RDW 18.9 H Plt Count 452 H Lymph % (Auto) [place] % (Auto) Lymph # [place] # Baso # Seg Neutrophils % Seg Neuts % (Manual) 89.5 H Lymphocytes % (Manual) 2.0 L Monocytes % (Manual) Eosinophils % (Manual) Basophils % (Manual) Nucleated RBC % Seg Neutrophils # Seg Neutrophils # Man 25.4 H Lymphocytes # (Manual) 0.6 L Monocytes # (Manual) 1.3 H Eosinophils # (Manual) Basophils # (Manual) PT INR Fibrinogen dRVVT Confirm Interp Factor V Activity POC ABG pH POC ABG pCO2 POC ABG pO2 ABG pO2 ABG HCO3 ABG Base Excess ABG Hemoglobin Oxyhemoglobin Sodium 136 L Potassium Chloride Carbon Dioxide 18 L BUN 107 H Creatinine 2.6 H Glucose 187 H POC Glucose 230 H Lactic Acid Calcium 8.3 L Ionized Calcium Phosphorus Magnesium Direct Bilirubin AST ALT Alkaline Phosphatase Lactate Dehydrogenase Troponin T C-Reactive Protein Total Protein Albumin Prealbumin Triglycerides Cholesterol LDL Cholesterol Direct HDL Cholesterol 25-OH Vitamin D Total PTH Intact Urine pH Urine WBC (Auto) Urine Creatinine Urine Total Protein Fluid Total Protein Vancomycin Trough Rheumatoid Factor Complement C4 Miscellaneous Test Crossmatch 09/11/16 09/11/16 09/11/16 05:55 12:02 17:32 WBC RBC Hgb Hct MCV MCH MCHC RDW Plt Count Lymph % (Auto) [place] % (Auto) Lymph # [place] # Baso # Seg Neutrophils % Seg Neuts % (Manual) Lymphocytes % (Manual) Monocytes % (Manual) Eosinophils % (Manual) Basophils % (Manual) Nucleated RBC % Seg Neutrophils # Seg Neutrophils # Man Lymphocytes # (Manual) Monocytes # (Manual) Eosinophils # (Manual) Basophils # (Manual) PT INR Fibrinogen dRVVT Confirm Interp Factor V Activity POC ABG pH POC ABG pCO2 33.8 L POC ABG pO2 ABG pO2 ABG HCO3 ABG Base Excess ABG Hemoglobin Oxyhemoglobin Sodium Potassium Chloride Carbon Dioxide BUN Creatinine Glucose POC Glucose 191 H 239 H Lactic Acid Calcium Ionized Calcium Phosphorus Magnesium Direct Bilirubin AST ALT Alkaline Phosphatase Lactate Dehydrogenase Troponin T C-Reactive Protein Total Protein Albumin Prealbumin Triglycerides Cholesterol LDL Cholesterol Direct HDL Cholesterol 25-OH Vitamin D Total PTH Intact Urine pH Urine WBC (Auto) Urine Creatinine Urine Total Protein Fluid Total Protein Vancomycin Trough Rheumatoid Factor Complement C4 Miscellaneous Test Crossmatch 09/11/16 09/12/16 09/12/16 23:52 05:09 05:32 WBC RBC Hgb Hct MCV MCH MCHC RDW Plt Count Lymph % (Auto) [place] % (Auto) Lymph # [place] # Baso # Seg Neutrophils % Seg Neuts % (Manual) Lymphocytes % (Manual) Monocytes % (Manual) Eosinophils % (Manual) Basophils % (Manual) Nucleated RBC % Seg Neutrophils # Seg Neutrophils # Man Lymphocytes # (Manual) Monocytes # (Manual) Eosinophils # (Manual) Basophils # (Manual) PT INR Fibrinogen dRVVT Confirm Interp Factor V Activity POC ABG pH POC ABG pCO2 34.6 L POC ABG pO2 ABG pO2 ABG HCO3 ABG Base Excess ABG Hemoglobin Oxyhemoglobin Sodium Potassium Chloride Carbon Dioxide BUN Creatinine Glucose POC Glucose 265 H 184 H Lactic Acid Calcium Ionized Calcium Phosphorus Magnesium Direct Bilirubin AST ALT Alkaline Phosphatase Lactate Dehydrogenase Troponin T C-Reactive Protein Total Protein Albumin Prealbumin Triglycerides Cholesterol LDL Cholesterol Direct HDL Cholesterol 25-OH Vitamin D Total PTH Intact Urine pH Urine WBC (Auto) Urine Creatinine Urine Total Protein Fluid Total Protein Vancomycin Trough Rheumatoid Factor Complement C4 Miscellaneous Test Crossmatch 09/12/16 09/12/16 09/12/16 06:45 06:45 07:22 WBC 31.7 H RBC 3.54 L Hgb 8.3 L Hct 25.9 L MCV 73 L MCH 23 L MCHC RDW 18.9 H Plt Count Lymph % (Auto) [place] % (Auto) Lymph # [place] # Baso # Seg Neutrophils % Seg Neuts % (Manual) 88.5 H Lymphocytes % (Manual) 4.5 L Monocytes % (Manual) Eosinophils % (Manual) Basophils % (Manual) Nucleated RBC % Seg Neutrophils # Seg Neutrophils # Man 28.1 H Lymphocytes # (Manual) Monocytes # (Manual) 1.0 H Eosinophils # (Manual) Basophils # (Manual) PT INR Fibrinogen dRVVT Confirm Interp Factor V Activity POC ABG pH POC ABG pCO2 POC ABG pO2 ABG pO2 ABG HCO3 ABG Base Excess ABG Hemoglobin Oxyhemoglobin Sodium Potassium Chloride Carbon Dioxide 20 L BUN 115 H Creatinine 2.7 H Glucose 165 H POC Glucose Lactic Acid Calcium 8.0 L Ionized Calcium Phosphorus Magnesium Direct Bilirubin AST ALT Alkaline Phosphatase Lactate Dehydrogenase Troponin T C-Reactive Protein Total Protein Albumin Prealbumin Triglycerides 217 H Cholesterol LDL Cholesterol Direct HDL Cholesterol 25-OH Vitamin D Total PTH Intact Urine pH Urine WBC (Auto) Urine Creatinine Urine Total Protein Fluid Total Protein Vancomycin Trough Rheumatoid Factor Complement C4 Miscellaneous Test Crossmatch 09/12/16 09/12/16 09/12/16 07:22 09:59 12:21 WBC RBC Hgb Hct MCV MCH MCHC RDW Plt Count Lymph % (Auto) [place] % (Auto) Lymph # [place] # Baso # Seg Neutrophils % Seg Neuts % (Manual) Lymphocytes % (Manual) Monocytes % (Manual) Eosinophils % (Manual) Basophils % (Manual) Nucleated RBC % Seg Neutrophils # Seg Neutrophils # Man Lymphocytes # (Manual) Monocytes # (Manual) Eosinophils # (Manual) Basophils # (Manual) PT INR Fibrinogen dRVVT Confirm Interp Positive H Factor V Activity POC ABG pH POC ABG pCO2 POC ABG pO2 ABG pO2 ABG HCO3 ABG Base Excess ABG Hemoglobin Oxyhemoglobin Sodium Potassium Chloride Carbon Dioxide BUN Creatinine Glucose POC Glucose 224 H Lactic Acid Calcium Ionized Calcium Phosphorus Magnesium Direct Bilirubin AST ALT Alkaline Phosphatase Lactate Dehydrogenase Troponin T C-Reactive Protein 1.70 H Total Protein Albumin Prealbumin Triglycerides Cholesterol LDL Cholesterol Direct HDL Cholesterol 25-OH Vitamin D Total PTH Intact Urine pH Urine WBC (Auto) Urine Creatinine Urine Total Protein Fluid Total Protein Vancomycin Trough Rheumatoid Factor Complement C4 Miscellaneous Test Crossmatch 09/12/16 09/12/16 09/13/16 16:51 23:28 04:00 WBC 45.0 H* RBC Hgb 9.4 L Hct MCV 75 L MCH 23 L MCHC RDW 19.0 H Plt Count 470 H Lymph % (Auto) [place] % (Auto) Lymph # [place] # Baso # Seg Neutrophils % Seg Neuts % (Manual) 89.0 H Lymphocytes % (Manual) 5.0 L Monocytes % (Manual) Eosinophils % (Manual) Basophils % (Manual) Nucleated RBC % Seg Neutrophils # Seg Neutrophils # Man 40.1 H Lymphocytes # (Manual) Monocytes # (Manual) Eosinophils # (Manual) Basophils # (Manual) PT INR Fibrinogen dRVVT Confirm Interp Factor V Activity POC ABG pH POC ABG pCO2 POC ABG pO2 ABG pO2 ABG HCO3 ABG Base Excess ABG Hemoglobin Oxyhemoglobin Sodium Potassium Chloride Carbon Dioxide BUN Creatinine Glucose POC Glucose 169 H 150 H Lactic Acid Calcium Ionized Calcium Phosphorus Magnesium Direct Bilirubin AST ALT Alkaline Phosphatase Lactate Dehydrogenase Troponin T C-Reactive Protein Total Protein Albumin Prealbumin Triglycerides Cholesterol LDL Cholesterol Direct HDL Cholesterol 25-OH Vitamin D Total PTH Intact Urine pH Urine WBC (Auto) Urine Creatinine Urine Total Protein Fluid Total Protein Vancomycin Trough Rheumatoid Factor Complement C4 Miscellaneous Test Crossmatch 09/13/16 09/13/16 09/13/16 04:00 11:26 17:31 WBC RBC Hgb Hct MCV MCH MCHC RDW Plt Count Lymph % (Auto) [place] % (Auto) Lymph # [place] # Baso # Seg Neutrophils % Seg Neuts % (Manual) Lymphocytes % (Manual) Monocytes % (Manual) Eosinophils % (Manual) Basophils % (Manual) Nucleated RBC % Seg Neutrophils # Seg Neutrophils # Man Lymphocytes # (Manual) Monocytes # (Manual) Eosinophils # (Manual) Basophils # (Manual) PT INR Fibrinogen dRVVT Confirm Interp Factor V Activity POC ABG pH POC ABG pCO2 POC ABG pO2 ABG pO2 ABG HCO3 ABG Base Excess ABG Hemoglobin Oxyhemoglobin Sodium Potassium Chloride Carbon Dioxide 20 L BUN 116 H Creatinine 3.0 H Glucose 172 H POC Glucose 140 H 183 H Lactic Acid Calcium Ionized Calcium Phosphorus Magnesium Direct Bilirubin AST ALT Alkaline Phosphatase Lactate Dehydrogenase Troponin T C-Reactive Protein Total Protein 6.2 L Albumin 2.9 L Prealbumin Triglycerides Cholesterol LDL Cholesterol Direct HDL Cholesterol 25-OH Vitamin D Total PTH Intact Urine pH Urine WBC (Auto) Urine Creatinine Urine Total Protein Fluid Total Protein Vancomycin Trough Rheumatoid Factor Complement C4 Miscellaneous Test Crossmatch 09/13/16 09/14/16 09/14/16 23:23 04:06 04:07 WBC 29.4 H RBC Hgb 8.9 L Hct 27.3 L MCV 75 L MCH 24 L MCHC RDW 19.1 H Plt Count Lymph % (Auto) [place] % (Auto) Lymph # [place] # Baso # Seg Neutrophils % Seg Neuts % (Manual) 84.0 H Lymphocytes % (Manual) 6.0 L Monocytes % (Manual) 9.0 H Eosinophils % (Manual) Basophils % (Manual) Nucleated RBC % Seg Neutrophils # Seg Neutrophils # Man 24.7 H Lymphocytes # (Manual) Monocytes # (Manual) 2.6 H Eosinophils # (Manual) Basophils # (Manual) PT INR Fibrinogen dRVVT Confirm Interp Factor V Activity POC ABG pH 7.342 L POC ABG pCO2 POC ABG pO2 116 H ABG pO2 ABG HCO3 ABG Base Excess ABG Hemoglobin Oxyhemoglobin Sodium Potassium Chloride Carbon Dioxide BUN Creatinine Glucose POC Glucose 154 H Lactic Acid Calcium Ionized Calcium Phosphorus Magnesium Direct Bilirubin AST ALT Alkaline Phosphatase Lactate Dehydrogenase Troponin T C-Reactive Protein Total Protein Albumin Prealbumin Triglycerides Cholesterol LDL Cholesterol Direct HDL Cholesterol 25-OH Vitamin D Total PTH Intact Urine pH Urine WBC (Auto) Urine Creatinine Urine Total Protein Fluid Total Protein Vancomycin Trough Rheumatoid Factor Complement C4 Miscellaneous Test Crossmatch 09/14/16 09/14/16 09/14/16 04:07 05:29 12:19 WBC RBC Hgb Hct MCV MCH MCHC RDW Plt Count Lymph % (Auto) [place] % (Auto) Lymph # [place] # Baso # Seg Neutrophils % Seg Neuts % (Manual) Lymphocytes % (Manual) Monocytes % (Manual) Eosinophils % (Manual) Basophils % (Manual) Nucleated RBC % Seg Neutrophils # Seg Neutrophils # Man Lymphocytes # (Manual) Monocytes # (Manual) Eosinophils # (Manual) Basophils # (Manual) PT INR Fibrinogen dRVVT Confirm Interp Factor V Activity POC ABG pH POC ABG pCO2 POC ABG pO2 ABG pO2 ABG HCO3 ABG Base Excess ABG Hemoglobin Oxyhemoglobin Sodium 136 L Potassium Chloride Carbon Dioxide 18 L BUN 121 H Creatinine 2.8 H Glucose 214 H POC Glucose 239 H 181 H Lactic Acid Calcium Ionized Calcium Phosphorus Magnesium Direct Bilirubin AST ALT Alkaline Phosphatase Lactate Dehydrogenase Troponin T C-Reactive Protein Total Protein Albumin Prealbumin Triglycerides Cholesterol LDL Cholesterol Direct HDL Cholesterol 25-OH Vitamin D Total PTH Intact Urine pH Urine WBC (Auto) Urine Creatinine Urine Total Protein Fluid Total Protein Vancomycin Trough Rheumatoid Factor Complement C4 Miscellaneous Test Crossmatch 09/14/16 09/14/16 09/15/16 18:12 23:37 05:00 WBC 26.1 H RBC 3.05 L Hgb 7.2 L Hct 22.9 L MCV 75 L MCH 24 L MCHC RDW 19.0 H Plt Count Lymph % (Auto) [place] % (Auto) Lymph # [place] # Baso # Seg Neutrophils % Seg Neuts % (Manual) Lymphocytes % (Manual) Monocytes % (Manual) Eosinophils % (Manual) Basophils % (Manual) Nucleated RBC % Seg Neutrophils # Seg Neutrophils # Man Lymphocytes # (Manual) Monocytes # (Manual) Eosinophils # (Manual) Basophils # (Manual) PT INR Fibrinogen dRVVT Confirm Interp Factor V Activity POC ABG pH POC ABG pCO2 POC ABG pO2 ABG pO2 ABG HCO3 ABG Base Excess ABG Hemoglobin Oxyhemoglobin Sodium Potassium Chloride Carbon Dioxide BUN Creatinine Glucose POC Glucose 266 H 154 H Lactic Acid Calcium Ionized Calcium Phosphorus Magnesium Direct Bilirubin AST ALT Alkaline Phosphatase Lactate Dehydrogenase Troponin T C-Reactive Protein Total Protein Albumin Prealbumin Triglycerides Cholesterol LDL Cholesterol Direct HDL Cholesterol 25-OH Vitamin D Total PTH Intact Urine pH Urine WBC (Auto) Urine Creatinine Urine Total Protein Fluid Total Protein Vancomycin Trough Rheumatoid Factor Complement C4 Miscellaneous Test Crossmatch 09/15/16 09/15/16 09/15/16 05:00 05:17 12:45 WBC RBC Hgb Hct MCV MCH MCHC RDW Plt Count Lymph % (Auto) [place] % (Auto) Lymph # [place] # Baso # Seg Neutrophils % Seg Neuts % (Manual) Lymphocytes % (Manual) Monocytes % (Manual) Eosinophils % (Manual) Basophils % (Manual) Nucleated RBC % Seg Neutrophils # Seg Neutrophils # Man Lymphocytes # (Manual) Monocytes # (Manual) Eosinophils # (Manual) Basophils # (Manual) PT INR Fibrinogen dRVVT Confirm Interp Factor V Activity POC ABG pH POC ABG pCO2 POC ABG pO2 ABG pO2 ABG HCO3 ABG Base Excess ABG Hemoglobin Oxyhemoglobin Sodium Potassium 5.2 H Chloride Carbon Dioxide 18 L BUN 139 H Creatinine 3.7 H Glucose 227 H POC Glucose 226 H 244 H Lactic Acid Calcium 8.3 L Ionized Calcium Phosphorus Magnesium Direct Bilirubin AST ALT Alkaline Phosphatase Lactate Dehydrogenase Troponin T C-Reactive Protein Total Protein Albumin Prealbumin Triglycerides Cholesterol LDL Cholesterol Direct HDL Cholesterol 25-OH Vitamin D Total PTH Intact Urine pH Urine WBC (Auto) Urine Creatinine Urine Total Protein Fluid Total Protein Vancomycin Trough Rheumatoid Factor Complement C4 Miscellaneous Test Crossmatch 09/15/16 09/15/16 09/15/16 14:32 17:33 23:35 WBC RBC Hgb Hct MCV MCH MCHC RDW Plt Count Lymph % (Auto) [place] % (Auto) Lymph # [place] # Baso # Seg Neutrophils % Seg Neuts % (Manual) Lymphocytes % (Manual) Monocytes % (Manual) Eosinophils % (Manual) Basophils % (Manual) Nucleated RBC % Seg Neutrophils # Seg Neutrophils # Man Lymphocytes # (Manual) Monocytes # (Manual) Eosinophils # (Manual) Basophils # (Manual) PT INR Fibrinogen dRVVT Confirm Interp Factor V Activity POC ABG pH POC ABG pCO2 27.7 L POC ABG pO2 120 H ABG pO2 ABG HCO3 ABG Base Excess ABG Hemoglobin Oxyhemoglobin Sodium Potassium Chloride Carbon Dioxide BUN Creatinine Glucose POC Glucose 232 H 167 H Lactic Acid Calcium Ionized Calcium Phosphorus Magnesium Direct Bilirubin AST ALT Alkaline Phosphatase Lactate Dehydrogenase Troponin T C-Reactive Protein Total Protein Albumin Prealbumin Triglycerides Cholesterol LDL Cholesterol Direct HDL Cholesterol 25-OH Vitamin D Total PTH Intact Urine pH Urine WBC (Auto) Urine Creatinine Urine Total Protein Fluid Total Protein Vancomycin Trough Rheumatoid Factor Complement C4 Miscellaneous Test Crossmatch 09/16/16 09/16/16 09/16/16 03:58 10:27 10:27 WBC 19.0 H RBC 2.77 L Hgb 6.5 L Hct 20.9 L MCV 76 L MCH 23 L MCHC RDW 19.3 H Plt Count Lymph % (Auto) 11.0 L [place] % (Auto) Lymph # [place] # 1.1 H Baso # Seg Neutrophils % 82.5 H Seg Neuts % (Manual) Lymphocytes % (Manual) Monocytes % (Manual) Eosinophils % (Manual) Basophils % (Manual) Nucleated RBC % Seg Neutrophils # 15.7 H Seg Neutrophils # Man Lymphocytes # (Manual) Monocytes # (Manual) Eosinophils # (Manual) Basophils # (Manual) PT INR Fibrinogen dRVVT Confirm Interp Factor V Activity POC ABG pH POC ABG pCO2 POC ABG pO2 ABG pO2 ABG HCO3 ABG Base Excess ABG Hemoglobin Oxyhemoglobin Sodium Potassium Chloride 109.3 H Carbon Dioxide 18 L BUN 139 H Creatinine 4.1 H Glucose 144 H POC Glucose 146 H Lactic Acid Calcium 8.1 L Ionized Calcium Phosphorus Magnesium Direct Bilirubin AST ALT Alkaline Phosphatase Lactate Dehydrogenase Troponin T C-Reactive Protein Total Protein Albumin Prealbumin Triglycerides Cholesterol LDL Cholesterol Direct HDL Cholesterol 25-OH Vitamin D Total PTH Intact Urine pH Urine WBC (Auto) Urine Creatinine Urine Total Protein Fluid Total Protein Vancomycin Trough Rheumatoid Factor Complement C4 Miscellaneous Test Crossmatch 09/16/16 09/16/16 09/16/16 12:04 12:10 13:55 WBC RBC Hgb Hct MCV MCH MCHC RDW Plt Count Lymph % (Auto) [place] % (Auto) Lymph # [place] # Baso # Seg Neutrophils % Seg Neuts % (Manual) Lymphocytes % (Manual) Monocytes % (Manual) Eosinophils % (Manual) Basophils % (Manual) Nucleated RBC % Seg Neutrophils # Seg Neutrophils # Man Lymphocytes # (Manual) Monocytes # (Manual) Eosinophils # (Manual) Basophils # (Manual) PT INR Fibrinogen dRVVT Confirm Interp Factor V Activity POC ABG pH POC ABG pCO2 32.9 L POC ABG pO2 ABG pO2 ABG HCO3 ABG Base Excess ABG Hemoglobin Oxyhemoglobin Sodium Potassium Chloride Carbon Dioxide BUN Creatinine Glucose POC Glucose 185 H Lactic Acid Calcium Ionized Calcium Phosphorus Magnesium Direct Bilirubin AST ALT Alkaline Phosphatase Lactate Dehydrogenase Troponin T C-Reactive Protein Total Protein Albumin Prealbumin Triglycerides Cholesterol LDL Cholesterol Direct HDL Cholesterol 25-OH Vitamin D Total PTH Intact Urine pH Urine WBC (Auto) Urine Creatinine Urine Total Protein Fluid Total Protein Vancomycin Trough Rheumatoid Factor Complement C4 Miscellaneous Test Crossmatch See Detail 09/16/16 09/16/16 09/16/16 17:55 19:19 23:48 WBC RBC Hgb Hct MCV MCH MCHC RDW Plt Count Lymph % (Auto) [place] % (Auto) Lymph # [place] # Baso # Seg Neutrophils % Seg Neuts % (Manual) Lymphocytes % (Manual) Monocytes % (Manual) Eosinophils % (Manual) Basophils % (Manual) Nucleated RBC % Seg Neutrophils # Seg Neutrophils # Man Lymphocytes # (Manual) Monocytes # (Manual) Eosinophils # (Manual) Basophils # (Manual) PT INR Fibrinogen dRVVT Confirm Interp Factor V Activity POC ABG pH POC ABG pCO2 POC ABG pO2 ABG pO2 ABG HCO3 ABG Base Excess ABG Hemoglobin Oxyhemoglobin Sodium Potassium Chloride Carbon Dioxide BUN Creatinine Glucose POC Glucose 222 H 107 H Lactic Acid Calcium Ionized Calcium Phosphorus Magnesium Direct Bilirubin AST ALT Alkaline Phosphatase Lactate Dehydrogenase Troponin T C-Reactive Protein Total Protein Albumin Prealbumin Triglycerides Cholesterol LDL Cholesterol Direct HDL Cholesterol 25-OH Vitamin D Total PTH Intact Urine pH Urine WBC (Auto) Urine Creatinine 47.4 H Urine Total Protein 16 H Fluid Total Protein Vancomycin Trough Rheumatoid Factor Complement C4 Miscellaneous Test Crossmatch 09/17/16 09/17/16 09/17/16 03:45 03:45 04:55 WBC 19.6 H RBC 3.41 L Hgb 8.5 L Hct 26.7 L MCV 78 L MCH 25 L MCHC RDW 19.9 H Plt Count Lymph % (Auto) 9.3 L [place] % (Auto) Lymph # [place] # 1.2 H Baso # Seg Neutrophils % 83.9 H Seg Neuts % (Manual) Lymphocytes % (Manual) Monocytes % (Manual) Eosinophils % (Manual) Basophils % (Manual) Nucleated RBC % Seg Neutrophils # 16.4 H Seg Neutrophils # Man Lymphocytes # (Manual) Monocytes # (Manual) Eosinophils # (Manual) Basophils # (Manual) PT INR Fibrinogen dRVVT Confirm Interp Factor V Activity POC ABG pH POC ABG pCO2 POC ABG pO2 ABG pO2 ABG HCO3 ABG Base Excess ABG Hemoglobin Oxyhemoglobin Sodium 146 H Potassium 5.1 H Chloride 110.9 H Carbon Dioxide 16 L BUN 146 H Creatinine 4.0 H Glucose 108 H POC Glucose 133 H Lactic Acid Calcium Ionized Calcium Phosphorus Magnesium 3.00 H Direct Bilirubin AST ALT Alkaline Phosphatase Lactate Dehydrogenase Troponin T C-Reactive Protein Total Protein Albumin Prealbumin Triglycerides Cholesterol LDL Cholesterol Direct HDL Cholesterol 25-OH Vitamin D Total PTH Intact Urine pH Urine WBC (Auto) Urine Creatinine Urine Total Protein Fluid Total Protein Vancomycin Trough Rheumatoid Factor Complement C4 Miscellaneous Test Crossmatch 09/17/16 09/17/16 09/17/16 11:15 17:33 23:47 WBC RBC Hgb Hct MCV MCH MCHC RDW Plt Count Lymph % (Auto) [place] % (Auto) Lymph # [place] # Baso # Seg Neutrophils % Seg Neuts % (Manual) Lymphocytes % (Manual) Monocytes % (Manual) Eosinophils % (Manual) Basophils % (Manual) Nucleated RBC % Seg Neutrophils # Seg Neutrophils # Man Lymphocytes # (Manual) Monocytes # (Manual) Eosinophils # (Manual) Basophils # (Manual) PT INR Fibrinogen dRVVT Confirm Interp Factor V Activity POC ABG pH POC ABG pCO2 POC ABG pO2 ABG pO2 ABG HCO3 ABG Base Excess ABG Hemoglobin Oxyhemoglobin Sodium Potassium Chloride Carbon Dioxide BUN Creatinine Glucose POC Glucose 176 H 246 H 148 H Lactic Acid Calcium Ionized Calcium Phosphorus Magnesium Direct Bilirubin AST ALT Alkaline Phosphatase Lactate Dehydrogenase Troponin T C-Reactive Protein Total Protein Albumin Prealbumin Triglycerides Cholesterol LDL Cholesterol Direct HDL Cholesterol 25-OH Vitamin D Total PTH Intact Urine pH Urine WBC (Auto) Urine Creatinine Urine Total Protein Fluid Total Protein Vancomycin Trough Rheumatoid Factor Complement C4 Miscellaneous Test Crossmatch 09/18/16 09/18/16 09/18/16 05:33 08:31 08:31 WBC 18.0 H RBC 3.17 L Hgb 9.0 L Hct 25.7 L MCV MCH MCHC 35 H RDW 20.4 H Plt Count Lymph % (Auto) [place] % (Auto) Lymph # [place] # Baso # Seg Neutrophils % Seg Neuts % (Manual) Lymphocytes % (Manual) Monocytes % (Manual) Eosinophils % (Manual) Basophils % (Manual) Nucleated RBC % Seg Neutrophils # Seg Neutrophils # Man Lymphocytes # (Manual) Monocytes # (Manual) Eosinophils # (Manual) Basophils # (Manual) PT INR Fibrinogen dRVVT Confirm Interp Factor V Activity POC ABG pH POC ABG pCO2 POC ABG pO2 ABG pO2 ABG HCO3 ABG Base Excess ABG Hemoglobin Oxyhemoglobin Sodium Potassium Chloride Carbon Dioxide 15 L BUN 124 H Creatinine 3.8 H Glucose POC Glucose 120 H Lactic Acid Calcium 8.1 L Ionized Calcium Phosphorus Magnesium Direct Bilirubin AST ALT Alkaline Phosphatase Lactate Dehydrogenase Troponin T C-Reactive Protein Total Protein Albumin Prealbumin Triglycerides Cholesterol LDL Cholesterol Direct HDL Cholesterol 25-OH Vitamin D Total PTH Intact Urine pH Urine WBC (Auto) Urine Creatinine Urine Total Protein Fluid Total Protein Vancomycin Trough Rheumatoid Factor Complement C4 Miscellaneous Test Crossmatch 09/18/16 09/18/16 09/18/16 12:03 15:34 17:50 WBC RBC Hgb Hct MCV MCH MCHC RDW Plt Count Lymph % (Auto) [place] % (Auto) Lymph # [place] # Baso # Seg Neutrophils % Seg Neuts % (Manual) Lymphocytes % (Manual) Monocytes % (Manual) Eosinophils % (Manual) Basophils % (Manual) Nucleated RBC % Seg Neutrophils # Seg Neutrophils # Man Lymphocytes # (Manual) Monocytes # (Manual) Eosinophils # (Manual) Basophils # (Manual) PT INR Fibrinogen dRVVT Confirm Interp Factor V Activity POC ABG pH POC ABG pCO2 25.7 L POC ABG pO2 66 L ABG pO2 ABG HCO3 ABG Base Excess ABG Hemoglobin Oxyhemoglobin Sodium Potassium Chloride Carbon Dioxide BUN Creatinine Glucose POC Glucose 156 H 220 H Lactic Acid Calcium Ionized Calcium Phosphorus Magnesium Direct Bilirubin AST ALT Alkaline Phosphatase Lactate Dehydrogenase Troponin T C-Reactive Protein Total Protein Albumin Prealbumin Triglycerides Cholesterol LDL Cholesterol Direct HDL Cholesterol 25-OH Vitamin D Total PTH Intact Urine pH Urine WBC (Auto) Urine Creatinine Urine Total Protein Fluid Total Protein Vancomycin Trough Rheumatoid Factor Complement C4 Miscellaneous Test Crossmatch 09/19/16 09/19/16 09/19/16 06:21 09:50 09:50 WBC 17.1 H RBC 3.49 L Hgb 9.0 L Hct 28.1 L MCV MCH 26 L MCHC RDW 20.8 H Plt Count Lymph % (Auto) 11.5 L [place] % (Auto) 7.5 H Lymph # [place] # 1.3 H Baso # Seg Neutrophils % 79.8 H Seg Neuts % (Manual) Lymphocytes % (Manual) Monocytes % (Manual) Eosinophils % (Manual) Basophils % (Manual) Nucleated RBC % Seg Neutrophils # 13.7 H Seg Neutrophils # Man Lymphocytes # (Manual) Monocytes # (Manual) Eosinophils # (Manual) Basophils # (Manual) PT INR Fibrinogen dRVVT Confirm Interp Factor V Activity POC ABG pH POC ABG pCO2 POC ABG pO2 ABG pO2 ABG HCO3 ABG Base Excess ABG Hemoglobin Oxyhemoglobin Sodium Potassium Chloride 108.6 H Carbon Dioxide 15 L BUN 125 H Creatinine 4.1 H Glucose 124 H POC Glucose 119 H Lactic Acid Calcium Ionized Calcium Phosphorus Magnesium Direct Bilirubin AST ALT Alkaline Phosphatase Lactate Dehydrogenase Troponin T C-Reactive Protein Total Protein Albumin Prealbumin Triglycerides Cholesterol LDL Cholesterol Direct HDL Cholesterol 25-OH Vitamin D Total PTH Intact Urine pH Urine WBC (Auto) Urine Creatinine Urine Total Protein Fluid Total Protein Vancomycin Trough Rheumatoid Factor Complement C4 Miscellaneous Test Crossmatch 09/19/16 09/19/16 09/19/16 11:25 17:53 23:36 WBC RBC Hgb Hct MCV MCH MCHC RDW Plt Count Lymph % (Auto) [place] % (Auto) Lymph # [place] # Baso # Seg Neutrophils % Seg Neuts % (Manual) Lymphocytes % (Manual) Monocytes % (Manual) Eosinophils % (Manual) Basophils % (Manual) Nucleated RBC % Seg Neutrophils # Seg Neutrophils # Man Lymphocytes # (Manual) Monocytes # (Manual) Eosinophils # (Manual) Basophils # (Manual) PT INR Fibrinogen dRVVT Confirm Interp Factor V Activity POC ABG pH POC ABG pCO2 POC ABG pO2 ABG pO2 ABG HCO3 ABG Base Excess ABG Hemoglobin Oxyhemoglobin Sodium Potassium Chloride Carbon Dioxide BUN Creatinine Glucose POC Glucose 160 H 245 H 121 H Lactic Acid Calcium Ionized Calcium Phosphorus Magnesium Direct Bilirubin AST ALT Alkaline Phosphatase Lactate Dehydrogenase Troponin T C-Reactive Protein Total Protein Albumin Prealbumin Triglycerides Cholesterol LDL Cholesterol Direct HDL Cholesterol 25-OH Vitamin D Total PTH Intact Urine pH Urine WBC (Auto) Urine Creatinine Urine Total Protein Fluid Total Protein Vancomycin Trough Rheumatoid Factor Complement C4 Miscellaneous Test Crossmatch 09/20/16 09/20/16 09/20/16 04:10 04:10 04:10 WBC 17.0 H RBC 3.21 L Hgb 8.2 L Hct 25.5 L MCV MCH 26 L MCHC RDW 20.9 H Plt Count Lymph % (Auto) [place] % (Auto) Lymph # [place] # Baso # Seg Neutrophils % Seg Neuts % (Manual) Lymphocytes % (Manual) Monocytes % (Manual) Eosinophils % (Manual) Basophils % (Manual) Nucleated RBC % Seg Neutrophils # Seg Neutrophils # Man Lymphocytes # (Manual) Monocytes # (Manual) Eosinophils # (Manual) Basophils # (Manual) PT INR Fibrinogen dRVVT Confirm Interp Factor V Activity POC ABG pH POC ABG pCO2 POC ABG pO2 ABG pO2 ABG HCO3 ABG Base Excess ABG Hemoglobin Oxyhemoglobin Sodium Potassium Chloride 111.0 H Carbon Dioxide 16 L BUN 129 H Creatinine 3.7 H Glucose 115 H POC Glucose Lactic Acid Calcium 8.2 L Ionized Calcium Phosphorus Magnesium Direct Bilirubin AST ALT Alkaline Phosphatase Lactate Dehydrogenase Troponin T C-Reactive Protein Total Protein Albumin Prealbumin Triglycerides 243 H Cholesterol LDL Cholesterol Direct HDL Cholesterol 25-OH Vitamin D Total PTH Intact Urine pH Urine WBC (Auto) Urine Creatinine Urine Total Protein Fluid Total Protein Vancomycin Trough Rheumatoid Factor Complement C4 Miscellaneous Test Crossmatch 09/20/16 09/20/16 09/20/16 05:40 11:52 16:50 WBC RBC Hgb Hct MCV MCH MCHC RDW Plt Count Lymph % (Auto) [place] % (Auto) Lymph # [place] # Baso # Seg Neutrophils % Seg Neuts % (Manual) Lymphocytes % (Manual) Monocytes % (Manual) Eosinophils % (Manual) Basophils % (Manual) Nucleated RBC % Seg Neutrophils # Seg Neutrophils # Man Lymphocytes # (Manual) Monocytes # (Manual) Eosinophils # (Manual) Basophils # (Manual) PT INR Fibrinogen dRVVT Confirm Interp Factor V Activity POC ABG pH POC ABG pCO2 POC ABG pO2 ABG pO2 ABG HCO3 ABG Base Excess ABG Hemoglobin Oxyhemoglobin Sodium Potassium Chloride Carbon Dioxide BUN Creatinine Glucose POC Glucose 131 H 183 H 236 H Lactic Acid Calcium Ionized Calcium Phosphorus Magnesium Direct Bilirubin AST ALT Alkaline Phosphatase Lactate Dehydrogenase Troponin T C-Reactive Protein Total Protein Albumin Prealbumin Triglycerides Cholesterol LDL Cholesterol Direct HDL Cholesterol 25-OH Vitamin D Total PTH Intact Urine pH Urine WBC (Auto) Urine Creatinine Urine Total Protein Fluid Total Protein Vancomycin Trough Rheumatoid Factor Complement C4 Miscellaneous Test Crossmatch 09/20/16 09/21/16 09/21/16 23:51 03:30 04:44 WBC RBC Hgb Hct MCV MCH MCHC RDW Plt Count Lymph % (Auto) [place] % (Auto) Lymph # [place] # Baso # Seg Neutrophils % Seg Neuts % (Manual) Lymphocytes % (Manual) Monocytes % (Manual) Eosinophils % (Manual) Basophils % (Manual) Nucleated RBC % Seg Neutrophils # Seg Neutrophils # Man Lymphocytes # (Manual) Monocytes # (Manual) Eosinophils # (Manual) Basophils # (Manual) PT INR Fibrinogen dRVVT Confirm Interp Factor V Activity POC ABG pH POC ABG pCO2 POC ABG pO2 ABG pO2 ABG HCO3 ABG Base Excess ABG Hemoglobin Oxyhemoglobin Sodium Potassium Chloride Carbon Dioxide BUN Creatinine Glucose POC Glucose 114 H 141 H Lactic Acid Calcium Ionized Calcium Phosphorus Magnesium 2.70 H Direct Bilirubin AST ALT Alkaline Phosphatase Lactate Dehydrogenase Troponin T C-Reactive Protein Total Protein Albumin Prealbumin Triglycerides Cholesterol LDL Cholesterol Direct HDL Cholesterol 25-OH Vitamin D Total PTH Intact Urine pH Urine WBC (Auto) Urine Creatinine Urine Total Protein Fluid Total Protein Vancomycin Trough Rheumatoid Factor Complement C4 Miscellaneous Test Crossmatch 09/21/16 09/21/16 09/21/16 07:45 07:45 10:01 WBC 13.8 H RBC 2.94 L Hgb 7.5 L Hct 23.5 L MCV MCH 26 L MCHC RDW 21.2 H Plt Count Lymph % (Auto) 6.9 L [place] % (Auto) 9.4 H Lymph # 0.9 L [place] # 1.3 H Baso # Seg Neutrophils % 83.2 H Seg Neuts % (Manual) Lymphocytes % (Manual) Monocytes % (Manual) Eosinophils % (Manual) Basophils % (Manual) Nucleated RBC % Seg Neutrophils # 11.5 H Seg Neutrophils # Man Lymphocytes # (Manual) Monocytes # (Manual) Eosinophils # (Manual) Basophils # (Manual) PT INR Fibrinogen dRVVT Confirm Interp Factor V Activity POC ABG pH 7.308 L POC ABG pCO2 31.9 L POC ABG pO2 148 H ABG pO2 ABG HCO3 ABG Base Excess ABG Hemoglobin Oxyhemoglobin Sodium 147 H Potassium Chloride 114.2 H Carbon Dioxide 15 L BUN 120 H Creatinine 3.9 H Glucose 156 H POC Glucose Lactic Acid Calcium 8.2 L Ionized Calcium Phosphorus Magnesium Direct Bilirubin AST ALT Alkaline Phosphatase Lactate Dehydrogenase Troponin T C-Reactive Protein Total Protein Albumin Prealbumin Triglycerides Cholesterol LDL Cholesterol Direct HDL Cholesterol 25-OH Vitamin D Total PTH Intact Urine pH Urine WBC (Auto) Urine Creatinine Urine Total Protein Fluid Total Protein Vancomycin Trough Rheumatoid Factor Complement C4 Miscellaneous Test Crossmatch 09/21/16 09/21/16 09/21/16 12:00 12:03 13:00 WBC RBC Hgb Hct MCV MCH MCHC RDW Plt Count Lymph % (Auto) [place] % (Auto) Lymph # [place] # Baso # Seg Neutrophils % Seg Neuts % (Manual) Lymphocytes % (Manual) Monocytes % (Manual) Eosinophils % (Manual) Basophils % (Manual) Nucleated RBC % Seg Neutrophils # Seg Neutrophils # Man Lymphocytes # (Manual) Monocytes # (Manual) Eosinophils # (Manual) Basophils # (Manual) PT INR Fibrinogen dRVVT Confirm Interp Factor V Activity POC ABG pH POC ABG pCO2 POC ABG pO2 ABG pO2 ABG HCO3 ABG Base Excess ABG Hemoglobin Oxyhemoglobin Sodium Potassium Chloride Carbon Dioxide BUN Creatinine Glucose POC Glucose 163 H Lactic Acid Calcium Ionized Calcium Phosphorus Magnesium Direct Bilirubin AST ALT Alkaline Phosphatase Lactate Dehydrogenase Troponin T C-Reactive Protein Total Protein Albumin Prealbumin Triglycerides Cholesterol LDL Cholesterol Direct HDL Cholesterol 25-OH Vitamin D Total PTH Intact Urine pH Urine WBC (Auto) Urine Creatinine 54.8 H Urine Total Protein Fluid Total Protein Vancomycin Trough 2.3 L Rheumatoid Factor Complement C4 Miscellaneous Test Crossmatch 09/21/16 09/21/16 09/22/16 16:51 23:17 06:27 WBC RBC Hgb Hct MCV MCH MCHC RDW Plt Count Lymph % (Auto) [place] % (Auto) Lymph # [place] # Baso # Seg Neutrophils % Seg Neuts % (Manual) Lymphocytes % (Manual) Monocytes % (Manual) Eosinophils % (Manual) Basophils % (Manual) Nucleated RBC % Seg Neutrophils # Seg Neutrophils # Man Lymphocytes # (Manual) Monocytes # (Manual) Eosinophils # (Manual) Basophils # (Manual) PT INR Fibrinogen dRVVT Confirm Interp Factor V Activity POC ABG pH POC ABG pCO2 POC ABG pO2 ABG pO2 ABG HCO3 ABG Base Excess ABG Hemoglobin Oxyhemoglobin Sodium Potassium Chloride Carbon Dioxide BUN Creatinine Glucose POC Glucose 206 H 114 H 115 H Lactic Acid Calcium Ionized Calcium Phosphorus Magnesium Direct Bilirubin AST ALT Alkaline Phosphatase Lactate Dehydrogenase Troponin T C-Reactive Protein Total Protein Albumin Prealbumin Triglycerides Cholesterol LDL Cholesterol Direct HDL Cholesterol 25-OH Vitamin D Total PTH Intact Urine pH Urine WBC (Auto) Urine Creatinine Urine Total Protein Fluid Total Protein Vancomycin Trough Rheumatoid Factor Complement C4 Miscellaneous Test Crossmatch 09/22/16 09/22/16 09/22/16 07:50 07:50 12:00 WBC 17.8 H RBC 3.04 L Hgb 8.0 L Hct 24.7 L MCV MCH 26 L MCHC RDW 21.6 H Plt Count Lymph % (Auto) [place] % (Auto) Lymph # [place] # Baso # Seg Neutrophils % Seg Neuts % (Manual) Lymphocytes % (Manual) Monocytes % (Manual) Eosinophils % (Manual) Basophils % (Manual) Nucleated RBC % Seg Neutrophils # Seg Neutrophils # Man Lymphocytes # (Manual) Monocytes # (Manual) Eosinophils # (Manual) Basophils # (Manual) PT INR Fibrinogen dRVVT Confirm Interp Factor V Activity POC ABG pH POC ABG pCO2 POC ABG pO2 ABG pO2 ABG HCO3 ABG Base Excess ABG Hemoglobin Oxyhemoglobin Sodium 150 H Potassium Chloride 118.2 H Carbon Dioxide 14 L BUN 111 H Creatinine 3.7 H Glucose 157 H POC Glucose 183 H Lactic Acid Calcium Ionized Calcium Phosphorus Magnesium Direct Bilirubin AST ALT Alkaline Phosphatase Lactate Dehydrogenase Troponin T C-Reactive Protein Total Protein Albumin Prealbumin Triglycerides Cholesterol LDL Cholesterol Direct HDL Cholesterol 25-OH Vitamin D Total PTH Intact Urine pH Urine WBC (Auto) Urine Creatinine Urine Total Protein Fluid Total Protein Vancomycin Trough Rheumatoid Factor Complement C4 Miscellaneous Test Crossmatch 09/22/16 09/22/16 09/23/16 17:29 23:10 05:00 WBC 19.2 H RBC 3.13 L Hgb 8.0 L Hct 25.2 L MCV MCH 26 L MCHC RDW 22.1 H Plt Count Lymph % (Auto) [place] % (Auto) Lymph # [place] # Baso # Seg Neutrophils % Seg Neuts % (Manual) 92.0 H Lymphocytes % (Manual) 3.0 L Monocytes % (Manual) Eosinophils % (Manual) Basophils % (Manual) Nucleated RBC % Seg Neutrophils # Seg Neutrophils # Man 17.7 H Lymphocytes # (Manual) 0.6 L Monocytes # (Manual) Eosinophils # (Manual) Basophils # (Manual) PT INR Fibrinogen dRVVT Confirm Interp Factor V Activity POC ABG pH POC ABG pCO2 POC ABG pO2 ABG pO2 ABG HCO3 ABG Base Excess ABG Hemoglobin Oxyhemoglobin Sodium Potassium Chloride Carbon Dioxide BUN Creatinine Glucose POC Glucose 197 H 169 H Lactic Acid Calcium Ionized Calcium Phosphorus Magnesium Direct Bilirubin AST ALT Alkaline Phosphatase Lactate Dehydrogenase Troponin T C-Reactive Protein Total Protein Albumin Prealbumin Triglycerides Cholesterol LDL Cholesterol Direct HDL Cholesterol 25-OH Vitamin D Total PTH Intact Urine pH Urine WBC (Auto) Urine Creatinine Urine Total Protein Fluid Total Protein Vancomycin Trough Rheumatoid Factor Complement C4 Miscellaneous Test Crossmatch 09/23/16 09/23/16 09/23/16 05:00 05:00 05:10 WBC RBC Hgb Hct MCV MCH MCHC RDW Plt Count Lymph % (Auto) [place] % (Auto) Lymph # [place] # Baso # Seg Neutrophils % Seg Neuts % (Manual) Lymphocytes % (Manual) Monocytes % (Manual) Eosinophils % (Manual) Basophils % (Manual) Nucleated RBC % Seg Neutrophils # Seg Neutrophils # Man Lymphocytes # (Manual) Monocytes # (Manual) Eosinophils # (Manual) Basophils # (Manual) PT INR Fibrinogen dRVVT Confirm Interp Factor V Activity POC ABG pH POC ABG pCO2 POC ABG pO2 ABG pO2 ABG HCO3 ABG Base Excess ABG Hemoglobin Oxyhemoglobin Sodium 147 H Potassium 3.2 L Chloride 115.7 H Carbon Dioxide 13 L BUN 111 H Creatinine 3.8 H Glucose 194 H POC Glucose 188 H Lactic Acid Calcium 7.3 L D Ionized Calcium Phosphorus Magnesium Direct Bilirubin AST ALT Alkaline Phosphatase Lactate Dehydrogenase Troponin T C-Reactive Protein 3.20 H Total Protein Albumin Prealbumin Triglycerides Cholesterol LDL Cholesterol Direct HDL Cholesterol 25-OH Vitamin D Total PTH Intact Urine pH Urine WBC (Auto) Urine Creatinine Urine Total Protein Fluid Total Protein Vancomycin Trough Rheumatoid Factor Complement C4 Miscellaneous Test Crossmatch 09/23/16 09/23/16 09/23/16 11:37 12:29 18:01 WBC RBC Hgb Hct MCV MCH MCHC RDW Plt Count Lymph % (Auto) [place] % (Auto) Lymph # [place] # Baso # Seg Neutrophils % Seg Neuts % (Manual) Lymphocytes % (Manual) Monocytes % (Manual) Eosinophils % (Manual) Basophils % (Manual) Nucleated RBC % Seg Neutrophils # Seg Neutrophils # Man Lymphocytes # (Manual) Monocytes # (Manual) Eosinophils # (Manual) Basophils # (Manual) PT INR Fibrinogen dRVVT Confirm Interp Factor V Activity POC ABG pH POC ABG pCO2 18.9 L POC ABG pO2 143 H ABG pO2 ABG HCO3 ABG Base Excess ABG Hemoglobin Oxyhemoglobin Sodium Potassium Chloride Carbon Dioxide BUN Creatinine Glucose POC Glucose 153 H 108 H Lactic Acid Calcium Ionized Calcium Phosphorus Magnesium Direct Bilirubin AST ALT Alkaline Phosphatase Lactate Dehydrogenase Troponin T C-Reactive Protein Total Protein Albumin Prealbumin Triglycerides Cholesterol LDL Cholesterol Direct HDL Cholesterol 25-OH Vitamin D Total PTH Intact Urine pH Urine WBC (Auto) Urine Creatinine Urine Total Protein Fluid Total Protein Vancomycin Trough Rheumatoid Factor Complement C4 Miscellaneous Test Crossmatch 09/23/16 09/23/16 09/24/16 21:19 23:43 05:16 WBC RBC Hgb Hct MCV MCH MCHC RDW Plt Count Lymph % (Auto) [place] % (Auto) Lymph # [place] # Baso # Seg Neutrophils % Seg Neuts % (Manual) Lymphocytes % (Manual) Monocytes % (Manual) Eosinophils % (Manual) Basophils % (Manual) Nucleated RBC % Seg Neutrophils # Seg Neutrophils # Man Lymphocytes # (Manual) Monocytes # (Manual) Eosinophils # (Manual) Basophils # (Manual) PT INR Fibrinogen dRVVT Confirm Interp Factor V Activity POC ABG pH POC ABG pCO2 17.3 L POC ABG pO2 112 H ABG pO2 ABG HCO3 ABG Base Excess ABG Hemoglobin Oxyhemoglobin Sodium Potassium Chloride Carbon Dioxide BUN Creatinine Glucose POC Glucose 143 H 164 H Lactic Acid Calcium Ionized Calcium Phosphorus Magnesium Direct Bilirubin AST ALT Alkaline Phosphatase Lactate Dehydrogenase Troponin T C-Reactive Protein Total Protein Albumin Prealbumin Triglycerides Cholesterol LDL Cholesterol Direct HDL Cholesterol 25-OH Vitamin D Total PTH Intact Urine pH Urine WBC (Auto) Urine Creatinine Urine Total Protein Fluid Total Protein Vancomycin Trough Rheumatoid Factor Complement C4 Miscellaneous Test Crossmatch 09/24/16 09/24/16 09/24/16 05:21 11:58 17:06 WBC RBC Hgb Hct MCV MCH MCHC RDW Plt Count Lymph % (Auto) [place] % (Auto) Lymph # [place] # Baso # Seg Neutrophils % Seg Neuts % (Manual) Lymphocytes % (Manual) Monocytes % (Manual) Eosinophils % (Manual) Basophils % (Manual) Nucleated RBC % Seg Neutrophils # Seg Neutrophils # Man Lymphocytes # (Manual) Monocytes # (Manual) Eosinophils # (Manual) Basophils # (Manual) PT INR Fibrinogen dRVVT Confirm Interp Factor V Activity POC ABG pH POC ABG pCO2 POC ABG pO2 ABG pO2 ABG HCO3 ABG Base Excess ABG Hemoglobin Oxyhemoglobin Sodium Potassium Chloride Carbon Dioxide 10 L BUN 103 H Creatinine 4.3 H Glucose 163 H POC Glucose 173 H 167 H Lactic Acid Calcium 6.5 L Ionized Calcium Phosphorus Magnesium Direct Bilirubin AST ALT Alkaline Phosphatase Lactate Dehydrogenase Troponin T C-Reactive Protein Total Protein Albumin Prealbumin Triglycerides Cholesterol LDL Cholesterol Direct HDL Cholesterol 25-OH Vitamin D Total PTH Intact Urine pH Urine WBC (Auto) Urine Creatinine Urine Total Protein Fluid Total Protein Vancomycin Trough Rheumatoid Factor Complement C4 Miscellaneous Test Crossmatch 09/24/16 09/24/16 09/24/16 20:15 21:02 23:48 WBC RBC Hgb Hct MCV MCH MCHC RDW Plt Count Lymph % (Auto) [place] % (Auto) Lymph # [place] # Baso # Seg Neutrophils % Seg Neuts % (Manual) Lymphocytes % (Manual) Monocytes % (Manual) Eosinophils % (Manual) Basophils % (Manual) Nucleated RBC % Seg Neutrophils # Seg Neutrophils # Man Lymphocytes # (Manual) Monocytes # (Manual) Eosinophils # (Manual) Basophils # (Manual) PT INR Fibrinogen dRVVT Confirm Interp Factor V Activity POC ABG pH 7.288 L POC ABG pCO2 30.2 L 21.5 L POC ABG pO2 32 L 39 L ABG pO2 ABG HCO3 ABG Base Excess ABG Hemoglobin Oxyhemoglobin Sodium Potassium Chloride Carbon Dioxide BUN Creatinine Glucose POC Glucose 109 H Lactic Acid Calcium Ionized Calcium Phosphorus Magnesium Direct Bilirubin AST ALT Alkaline Phosphatase Lactate Dehydrogenase Troponin T C-Reactive Protein Total Protein Albumin Prealbumin Triglycerides Cholesterol LDL Cholesterol Direct HDL Cholesterol 25-OH Vitamin D Total PTH Intact Urine pH Urine WBC (Auto) Urine Creatinine Urine Total Protein Fluid Total Protein Vancomycin Trough Rheumatoid Factor Complement C4 Miscellaneous Test Crossmatch 09/25/16 09/25/16 09/25/16 04:20 04:20 04:20 WBC RBC 2.58 L Hgb 7.0 L Hct 21.0 L MCV MCH 27 L MCHC RDW 23.8 H Plt Count Lymph % (Auto) [place] % (Auto) Lymph # [place] # Baso # Seg Neutrophils % Seg Neuts % (Manual) Lymphocytes % (Manual) 12.0 L Monocytes % (Manual) Eosinophils % (Manual) 7.0 H Basophils % (Manual) 2.0 H Nucleated RBC % Seg Neutrophils # Seg Neutrophils # Man Lymphocytes # (Manual) 0.9 L Monocytes # (Manual) Eosinophils # (Manual) 0.5 H Basophils # (Manual) PT INR Fibrinogen dRVVT Confirm Interp Factor V Activity POC ABG pH POC ABG pCO2 POC ABG pO2 ABG pO2 ABG HCO3 ABG Base Excess ABG Hemoglobin Oxyhemoglobin Sodium Potassium Chloride Carbon Dioxide 15 L BUN 72 H Creatinine 3.8 H Glucose POC Glucose Lactic Acid Calcium 6.0 L Ionized Calcium Phosphorus 4.60 H Magnesium 1.60 L Direct Bilirubin AST ALT Alkaline Phosphatase Lactate Dehydrogenase Troponin T C-Reactive Protein Total Protein Albumin Prealbumin Triglycerides Cholesterol LDL Cholesterol Direct HDL Cholesterol 25-OH Vitamin D Total PTH Intact Urine pH Urine WBC (Auto) Urine Creatinine Urine Total Protein Fluid Total Protein Vancomycin Trough Rheumatoid Factor Complement C4 Miscellaneous Test Crossmatch 09/25/16 09/25/16 09/25/16 04:57 08:02 10:30 WBC RBC Hgb Hct MCV MCH MCHC RDW Plt Count Lymph % (Auto) [place] % (Auto) Lymph # [place] # Baso # Seg Neutrophils % Seg Neuts % (Manual) Lymphocytes % (Manual) Monocytes % (Manual) Eosinophils % (Manual) Basophils % (Manual) Nucleated RBC % Seg Neutrophils # Seg Neutrophils # Man Lymphocytes # (Manual) Monocytes # (Manual) Eosinophils # (Manual) Basophils # (Manual) PT INR Fibrinogen dRVVT Confirm Interp Factor V Activity POC ABG pH POC ABG pCO2 24.7 L POC ABG pO2 152 H ABG pO2 ABG HCO3 ABG Base Excess ABG Hemoglobin Oxyhemoglobin Sodium Potassium Chloride Carbon Dioxide BUN Creatinine Glucose POC Glucose 113 H Lactic Acid Calcium Ionized Calcium Phosphorus Magnesium Direct Bilirubin AST ALT Alkaline Phosphatase Lactate Dehydrogenase Troponin T C-Reactive Protein Total Protein Albumin Prealbumin Triglycerides Cholesterol LDL Cholesterol Direct HDL Cholesterol 25-OH Vitamin D Total PTH Intact Urine pH Urine WBC (Auto) Urine Creatinine Urine Total Protein Fluid Total Protein Vancomycin Trough Rheumatoid Factor Complement C4 Miscellaneous Test Crossmatch See Detail 09/25/16 09/25/16 09/25/16 12:05 17:44 23:47 WBC RBC Hgb Hct MCV MCH MCHC RDW Plt Count Lymph % (Auto) [place] % (Auto) Lymph # [place] # Baso # Seg Neutrophils % Seg Neuts % (Manual) Lymphocytes % (Manual) Monocytes % (Manual) Eosinophils % (Manual) Basophils % (Manual) Nucleated RBC % Seg Neutrophils # Seg Neutrophils # Man Lymphocytes # (Manual) Monocytes # (Manual) Eosinophils # (Manual) Basophils # (Manual) PT INR Fibrinogen dRVVT Confirm Interp Factor V Activity POC ABG pH POC ABG pCO2 POC ABG pO2 ABG pO2 ABG HCO3 ABG Base Excess ABG Hemoglobin Oxyhemoglobin Sodium Potassium Chloride Carbon Dioxide BUN Creatinine Glucose POC Glucose 117 H 119 H 150 H Lactic Acid Calcium Ionized Calcium Phosphorus Magnesium Direct Bilirubin AST ALT Alkaline Phosphatase Lactate Dehydrogenase Troponin T C-Reactive Protein Total Protein Albumin Prealbumin Triglycerides Cholesterol LDL Cholesterol Direct HDL Cholesterol 25-OH Vitamin D Total PTH Intact Urine pH Urine WBC (Auto) Urine Creatinine Urine Total Protein Fluid Total Protein Vancomycin Trough Rheumatoid Factor Complement C4 Miscellaneous Test Crossmatch 09/26/16 09/26/16 09/26/16 04:25 04:25 04:25 WBC RBC 2.65 L Hgb 7.4 L Hct 21.6 L MCV MCH MCHC RDW 22.5 H Plt Count Lymph % (Auto) [place] % (Auto) Lymph # [place] # Baso # Seg Neutrophils % Seg Neuts % (Manual) Lymphocytes % (Manual) 6.0 L Monocytes % (Manual) Eosinophils % (Manual) 11.0 H Basophils % (Manual) Nucleated RBC % Seg Neutrophils # Seg Neutrophils # Man Lymphocytes # (Manual) 0.4 L Monocytes # (Manual) Eosinophils # (Manual) 0.6 H Basophils # (Manual) PT INR Fibrinogen dRVVT Confirm Interp Factor V Activity POC ABG pH POC ABG pCO2 POC ABG pO2 ABG pO2 ABG HCO3 ABG Base Excess ABG Hemoglobin Oxyhemoglobin Sodium Potassium Chloride 97.0 L Carbon Dioxide 19 L BUN 43 H Creatinine 2.6 H Glucose 130 H POC Glucose Lactic Acid 4.40 H* Calcium 6.7 L Ionized Calcium Phosphorus Magnesium Direct Bilirubin AST ALT Alkaline Phosphatase Lactate Dehydrogenase Troponin T C-Reactive Protein Total Protein Albumin Prealbumin Triglycerides Cholesterol LDL Cholesterol Direct HDL Cholesterol 25-OH Vitamin D Total PTH Intact Urine pH Urine WBC (Auto) Urine Creatinine Urine Total Protein Fluid Total Protein Vancomycin Trough Rheumatoid Factor Complement C4 Miscellaneous Test Crossmatch 09/26/16 09/26/16 09/26/16 05:20 11:44 12:12 WBC RBC Hgb Hct MCV MCH MCHC RDW Plt Count Lymph % (Auto) [place] % (Auto) Lymph # [place] # Baso # Seg Neutrophils % Seg Neuts % (Manual) Lymphocytes % (Manual) Monocytes % (Manual) Eosinophils % (Manual) Basophils % (Manual) Nucleated RBC % Seg Neutrophils # Seg Neutrophils # Man Lymphocytes # (Manual) Monocytes # (Manual) Eosinophils # (Manual) Basophils # (Manual) PT INR Fibrinogen dRVVT Confirm Interp Factor V Activity POC ABG pH POC ABG pCO2 27.0 L POC ABG pO2 69 L ABG pO2 ABG HCO3 ABG Base Excess ABG Hemoglobin Oxyhemoglobin Sodium Potassium Chloride Carbon Dioxide BUN Creatinine Glucose POC Glucose 121 H 128 H Lactic Acid Calcium Ionized Calcium Phosphorus Magnesium Direct Bilirubin AST ALT Alkaline Phosphatase Lactate Dehydrogenase Troponin T C-Reactive Protein Total Protein Albumin Prealbumin Triglycerides Cholesterol LDL Cholesterol Direct HDL Cholesterol 25-OH Vitamin D Total PTH Intact Urine pH Urine WBC (Auto) Urine Creatinine Urine Total Protein Fluid Total Protein Vancomycin Trough Rheumatoid Factor Complement C4 Miscellaneous Test Crossmatch 09/26/16 09/26/16 09/27/16 18:31 23:40 08:20 WBC RBC Hgb Hct MCV MCH MCHC RDW Plt Count Lymph % (Auto) [place] % (Auto) Lymph # [place] # Baso # Seg Neutrophils % Seg Neuts % (Manual) Lymphocytes % (Manual) Monocytes % (Manual) Eosinophils % (Manual) Basophils % (Manual) Nucleated RBC % Seg Neutrophils # Seg Neutrophils # Man Lymphocytes # (Manual) Monocytes # (Manual) Eosinophils # (Manual) Basophils # (Manual) PT INR Fibrinogen dRVVT Confirm Interp Factor V Activity POC ABG pH POC ABG pCO2 POC ABG pO2 ABG pO2 ABG HCO3 ABG Base Excess ABG Hemoglobin Oxyhemoglobin Sodium Potassium Chloride Carbon Dioxide BUN Creatinine Glucose POC Glucose 120 H 133 H Lactic Acid 4.10 H* Calcium Ionized Calcium Phosphorus Magnesium Direct Bilirubin AST ALT Alkaline Phosphatase Lactate Dehydrogenase Troponin T C-Reactive Protein Total Protein Albumin Prealbumin Triglycerides Cholesterol LDL Cholesterol Direct HDL Cholesterol 25-OH Vitamin D Total PTH Intact Urine pH Urine WBC (Auto) Urine Creatinine Urine Total Protein Fluid Total Protein Vancomycin Trough Rheumatoid Factor Complement C4 Miscellaneous Test Crossmatch 09/27/16 09/27/16 09/27/16 11:23 15:00 18:15 WBC RBC Hgb Hct MCV MCH MCHC RDW Plt Count Lymph % (Auto) [place] % (Auto) Lymph # [place] # Baso # Seg Neutrophils % Seg Neuts % (Manual) Lymphocytes % (Manual) Monocytes % (Manual) Eosinophils % (Manual) Basophils % (Manual) Nucleated RBC % Seg Neutrophils # Seg Neutrophils # Man Lymphocytes # (Manual) Monocytes # (Manual) Eosinophils # (Manual) Basophils # (Manual) PT INR Fibrinogen dRVVT Confirm Interp Factor V Activity POC ABG pH 7.459 H POC ABG pCO2 27.1 L POC ABG pO2 140 H ABG pO2 ABG HCO3 ABG Base Excess ABG Hemoglobin Oxyhemoglobin Sodium Potassium Chloride Carbon Dioxide BUN Creatinine Glucose POC Glucose 114 H 127 H Lactic Acid Calcium Ionized Calcium Phosphorus Magnesium Direct Bilirubin AST ALT Alkaline Phosphatase Lactate Dehydrogenase Troponin T C-Reactive Protein Total Protein Albumin Prealbumin Triglycerides Cholesterol LDL Cholesterol Direct HDL Cholesterol 25-OH Vitamin D Total PTH Intact Urine pH Urine WBC (Auto) Urine Creatinine Urine Total Protein Fluid Total Protein Vancomycin Trough Rheumatoid Factor Complement C4 Miscellaneous Test Crossmatch 09/27/16 09/27/16 09/28/16 Unknown Unknown 03:45 WBC RBC 2.49 L Hgb 6.8 L Hct 20.7 L MCV MCH 27 L MCHC RDW 22.1 H Plt Count Lymph % (Auto) [place] % (Auto) Lymph # [place] # Baso # Seg Neutrophils % Seg Neuts % (Manual) 32.0 L Lymphocytes % (Manual) 12.0 L Monocytes % (Manual) 11.0 H Eosinophils % (Manual) 10.0 H Basophils % (Manual) Nucleated RBC % Seg Neutrophils # Seg Neutrophils # Man Lymphocytes # (Manual) 1.0 L Monocytes # (Manual) 0.9 H Eosinophils # (Manual) 0.8 H Basophils # (Manual) PT INR Fibrinogen dRVVT Confirm Interp Factor V Activity POC ABG pH POC ABG pCO2 POC ABG pO2 ABG pO2 ABG HCO3 ABG Base Excess ABG Hemoglobin Oxyhemoglobin Sodium 135 L 135 L Potassium 3.5 L Chloride 93.6 L 94.4 L Carbon Dioxide 17 L 21 L BUN 45 H 28 H Creatinine 3.3 H 2.5 H Glucose 106 H POC Glucose Lactic Acid Calcium 7.3 L 7.1 L Ionized Calcium Phosphorus Magnesium Direct Bilirubin AST ALT Alkaline Phosphatase Lactate Dehydrogenase Troponin T C-Reactive Protein Total Protein Albumin Prealbumin Triglycerides Cholesterol LDL Cholesterol Direct HDL Cholesterol 25-OH Vitamin D Total PTH Intact Urine pH Urine WBC (Auto) Urine Creatinine Urine Total Protein Fluid Total Protein Vancomycin Trough Rheumatoid Factor Complement C4 Miscellaneous Test Crossmatch 09/28/16 09/28/16 09/28/16 03:45 07:25 11:58 WBC 13.3 H RBC 3.01 L Hgb 8.4 L Hct 25.0 L MCV MCH MCHC RDW 20.5 H Plt Count 128 L Lymph % (Auto) [place] % (Auto) Lymph # [place] # Baso # Seg Neutrophils % Seg Neuts % (Manual) Lymphocytes % (Manual) 7.0 L Monocytes % (Manual) Eosinophils % (Manual) 6.0 H Basophils % (Manual) Nucleated RBC % Seg Neutrophils # Seg Neutrophils # Man Lymphocytes # (Manual) 0.9 L Monocytes # (Manual) Eosinophils # (Manual) 0.8 H Basophils # (Manual) PT INR Fibrinogen dRVVT Confirm Interp Factor V Activity POC ABG pH POC ABG pCO2 POC ABG pO2 ABG pO2 ABG HCO3 ABG Base Excess ABG Hemoglobin Oxyhemoglobin Sodium Potassium Chloride Carbon Dioxide BUN Creatinine Glucose POC Glucose 121 H Lactic Acid 4.50 H* Calcium Ionized Calcium Phosphorus Magnesium Direct Bilirubin AST ALT Alkaline Phosphatase Lactate Dehydrogenase Troponin T C-Reactive Protein Total Protein Albumin Prealbumin Triglycerides Cholesterol LDL Cholesterol Direct HDL Cholesterol 25-OH Vitamin D Total PTH Intact Urine pH Urine WBC (Auto) Urine Creatinine Urine Total Protein Fluid Total Protein Vancomycin Trough Rheumatoid Factor Complement C4 Miscellaneous Test Crossmatch 09/29/16 09/29/16 09/29/16 06:45 06:45 06:45 WBC 14.9 H RBC 2.74 L Hgb 7.6 L Hct 23.2 L MCV MCH MCHC RDW 20.5 H Plt Count 81 L Lymph % (Auto) [place] % (Auto) Lymph # [place] # Baso # Seg Neutrophils % Seg Neuts % (Manual) 81.0 H Lymphocytes % (Manual) 4.0 L Monocytes % (Manual) Eosinophils % (Manual) Basophils % (Manual) Nucleated RBC % Seg Neutrophils # Seg Neutrophils # Man 12.1 H Lymphocytes # (Manual) 0.6 L Monocytes # (Manual) Eosinophils # (Manual) Basophils # (Manual) PT INR Fibrinogen dRVVT Confirm Interp Factor V Activity POC ABG pH POC ABG pCO2 POC ABG pO2 ABG pO2 ABG HCO3 ABG Base Excess ABG Hemoglobin Oxyhemoglobin Sodium 133 L Potassium 3.4 L Chloride 92.5 L Carbon Dioxide 21 L BUN 33 H Creatinine 3.0 H Glucose POC Glucose Lactic Acid Calcium 6.6 L Ionized Calcium Phosphorus Magnesium 1.40 L Direct Bilirubin 0.9 H AST ALT Alkaline Phosphatase Lactate Dehydrogenase Troponin T C-Reactive Protein Total Protein 4.3 L Albumin 1.3 L Prealbumin Triglycerides Cholesterol LDL Cholesterol Direct HDL Cholesterol 25-OH Vitamin D Total PTH Intact Urine pH Urine WBC (Auto) Urine Creatinine Urine Total Protein Fluid Total Protein Vancomycin Trough Rheumatoid Factor Complement C4 Miscellaneous Test Crossmatch 09/29/16 09/29/16 09/30/16 17:52 20:12 00:07 WBC RBC Hgb Hct MCV MCH MCHC RDW Plt Count Lymph % (Auto) [place] % (Auto) Lymph # [place] # Baso # Seg Neutrophils % Seg Neuts % (Manual) Lymphocytes % (Manual) Monocytes % (Manual) Eosinophils % (Manual) Basophils % (Manual) Nucleated RBC % Seg Neutrophils # Seg Neutrophils # Man Lymphocytes # (Manual) Monocytes # (Manual) Eosinophils # (Manual) Basophils # (Manual) PT INR Fibrinogen dRVVT Confirm Interp Factor V Activity POC ABG pH POC ABG pCO2 POC ABG pO2 ABG pO2 ABG HCO3 ABG Base Excess ABG Hemoglobin Oxyhemoglobin Sodium Potassium Chloride Carbon Dioxide BUN Creatinine Glucose POC Glucose 50 L 51 L Lactic Acid Calcium Ionized Calcium Phosphorus Magnesium Direct Bilirubin AST ALT Alkaline Phosphatase Lactate Dehydrogenase Troponin T 0.204 H* C-Reactive Protein Total Protein Albumin Prealbumin Triglycerides Cholesterol 31 L LDL Cholesterol Direct 4 L HDL Cholesterol 3 L 25-OH Vitamin D Total PTH Intact Urine pH Urine WBC (Auto) Urine Creatinine Urine Total Protein Fluid Total Protein Vancomycin Trough Rheumatoid Factor Complement C4 Miscellaneous Test Crossmatch 09/30/16 09/30/16 09/30/16 01:30 05:15 06:10 WBC RBC Hgb Hct MCV MCH MCHC RDW Plt Count Lymph % (Auto) [place] % (Auto) Lymph # [place] # Baso # Seg Neutrophils % Seg Neuts % (Manual) Lymphocytes % (Manual) Monocytes % (Manual) Eosinophils % (Manual) Basophils % (Manual) Nucleated RBC % Seg Neutrophils # Seg Neutrophils # Man Lymphocytes # (Manual) Monocytes # (Manual) Eosinophils # (Manual) Basophils # (Manual) PT INR Fibrinogen dRVVT Confirm Interp Factor V Activity POC ABG pH POC ABG pCO2 POC ABG pO2 ABG pO2 ABG HCO3 ABG Base Excess ABG Hemoglobin Oxyhemoglobin Sodium 133 L Potassium 3.2 L Chloride 93.2 L Carbon Dioxide 19 L BUN 36 H Creatinine 3.2 H Glucose 104 H POC Glucose 167 H 146 H Lactic Acid Calcium 6.4 L Ionized Calcium Phosphorus Magnesium 1.60 L Direct Bilirubin AST ALT Alkaline Phosphatase Lactate Dehydrogenase Troponin T C-Reactive Protein Total Protein Albumin Prealbumin Triglycerides Cholesterol LDL Cholesterol Direct HDL Cholesterol 25-OH Vitamin D Total PTH Intact Urine pH Urine WBC (Auto) Urine Creatinine Urine Total Protein Fluid Total Protein Vancomycin Trough Rheumatoid Factor Complement C4 Miscellaneous Test Crossmatch 09/30/16 09/30/16 09/30/16 11:26 13:39 18:38 WBC RBC Hgb Hct MCV MCH MCHC RDW Plt Count Lymph % (Auto) [place] % (Auto) Lymph # [place] # Baso # Seg Neutrophils % Seg Neuts % (Manual) Lymphocytes % (Manual) Monocytes % (Manual) Eosinophils % (Manual) Basophils % (Manual) Nucleated RBC % Seg Neutrophils # Seg Neutrophils # Man Lymphocytes # (Manual) Monocytes # (Manual) Eosinophils # (Manual) Basophils # (Manual) PT INR Fibrinogen dRVVT Confirm Interp Factor V Activity POC ABG pH 7.479 H POC ABG pCO2 29.8 L POC ABG pO2 117 H ABG pO2 ABG HCO3 ABG Base Excess ABG Hemoglobin Oxyhemoglobin Sodium Potassium Chloride Carbon Dioxide BUN Creatinine Glucose POC Glucose 140 H 122 H Lactic Acid Calcium Ionized Calcium Phosphorus Magnesium Direct Bilirubin AST ALT Alkaline Phosphatase Lactate Dehydrogenase Troponin T C-Reactive Protein Total Protein Albumin Prealbumin Triglycerides Cholesterol LDL Cholesterol Direct HDL Cholesterol 25-OH Vitamin D Total PTH Intact Urine pH Urine WBC (Auto) Urine Creatinine Urine Total Protein Fluid Total Protein Vancomycin Trough Rheumatoid Factor Complement C4 Miscellaneous Test Crossmatch 10/01/16 10/01/16 10/01/16 06:00 06:00 12:37 WBC 12.6 H RBC 2.75 L Hgb 7.3 L Hct 23.3 L MCV MCH 27 L MCHC RDW 20.6 H Plt Count 72 L Lymph % (Auto) [place] % (Auto) Lymph # [place] # Baso # Seg Neutrophils % Seg Neuts % (Manual) 31.0 L Lymphocytes % (Manual) 8.0 L Monocytes % (Manual) Eosinophils % (Manual) Basophils % (Manual) Nucleated RBC % 3.0 H Seg Neutrophils # Seg Neutrophils # Man Lymphocytes # (Manual) 1.0 L Monocytes # (Manual) Eosinophils # (Manual) Basophils # (Manual) PT INR Fibrinogen dRVVT Confirm Interp Factor V Activity POC ABG pH POC ABG pCO2 POC ABG pO2 ABG pO2 ABG HCO3 ABG Base Excess ABG Hemoglobin Oxyhemoglobin Sodium 127 L Potassium Chloride 86.8 L Carbon Dioxide 20 L BUN 42 H Creatinine 3.5 H Glucose POC Glucose 65 L Lactic Acid Calcium 7.0 L Ionized Calcium Phosphorus Magnesium Direct Bilirubin AST ALT Alkaline Phosphatase Lactate Dehydrogenase Troponin T C-Reactive Protein Total Protein Albumin Prealbumin Triglycerides Cholesterol LDL Cholesterol Direct HDL Cholesterol 25-OH Vitamin D Total PTH Intact Urine pH Urine WBC (Auto) Urine Creatinine Urine Total Protein Fluid Total Protein Vancomycin Trough Rheumatoid Factor Complement C4 Miscellaneous Test Crossmatch 10/01/16 10/01/16 10/02/16 17:39 23:32 00:59 WBC RBC Hgb Hct MCV MCH MCHC RDW Plt Count Lymph % (Auto) [place] % (Auto) Lymph # [place] # Baso # Seg Neutrophils % Seg Neuts % (Manual) Lymphocytes % (Manual) Monocytes % (Manual) Eosinophils % (Manual) Basophils % (Manual) Nucleated RBC % Seg Neutrophils # Seg Neutrophils # Man Lymphocytes # (Manual) Monocytes # (Manual) Eosinophils # (Manual) Basophils # (Manual) PT INR Fibrinogen dRVVT Confirm Interp Factor V Activity POC ABG pH POC ABG pCO2 POC ABG pO2 ABG pO2 ABG HCO3 ABG Base Excess ABG Hemoglobin Oxyhemoglobin Sodium Potassium Chloride Carbon Dioxide BUN Creatinine Glucose POC Glucose 107 H 52 L 145 H Lactic Acid Calcium Ionized Calcium Phosphorus Magnesium Direct Bilirubin AST ALT Alkaline Phosphatase Lactate Dehydrogenase Troponin T C-Reactive Protein Total Protein Albumin Prealbumin Triglycerides Cholesterol LDL Cholesterol Direct HDL Cholesterol 25-OH Vitamin D Total PTH Intact Urine pH Urine WBC (Auto) Urine Creatinine Urine Total Protein Fluid Total Protein Vancomycin Trough Rheumatoid Factor Complement C4 Miscellaneous Test Crossmatch 10/02/16 10/02/16 10/02/16 10:30 10:50 10:50 WBC 14.7 H RBC 2.76 L Hgb 7.4 L Hct 23.6 L MCV MCH 27 L MCHC RDW 20.2 H Plt Count 79 L Lymph % (Auto) [place] % (Auto) Lymph # [place] # Baso # Seg Neutrophils % Seg Neuts % (Manual) 86.0 H Lymphocytes % (Manual) 6.0 L Monocytes % (Manual) Eosinophils % (Manual) Basophils % (Manual) Nucleated RBC % Seg Neutrophils # Seg Neutrophils # Man 12.6 H Lymphocytes # (Manual) 0.9 L Monocytes # (Manual) Eosinophils # (Manual) Basophils # (Manual) PT INR Fibrinogen dRVVT Confirm Interp Factor V Activity POC ABG pH 7.486 H POC ABG pCO2 30.1 L POC ABG pO2 108 H ABG pO2 ABG HCO3 ABG Base Excess ABG Hemoglobin Oxyhemoglobin Sodium 131 L Potassium 3.4 L Chloride 89.9 L Carbon Dioxide BUN 26 H Creatinine 2.6 H Glucose POC Glucose Lactic Acid Calcium 7.0 L Ionized Calcium Phosphorus Magnesium Direct Bilirubin AST ALT Alkaline Phosphatase Lactate Dehydrogenase Troponin T C-Reactive Protein Total Protein Albumin Prealbumin Triglycerides Cholesterol LDL Cholesterol Direct HDL Cholesterol 25-OH Vitamin D Total PTH Intact Urine pH Urine WBC (Auto) Urine Creatinine Urine Total Protein Fluid Total Protein Vancomycin Trough Rheumatoid Factor Complement C4 Miscellaneous Test Crossmatch 10/02/16 10/03/16 10/03/16 23:45 00:45 05:10 WBC 12.9 H RBC 2.77 L Hgb 7.6 L Hct 23.7 L MCV MCH 27 L MCHC RDW 19.7 H Plt Count 89 L Lymph % (Auto) [place] % (Auto) Lymph # [place] # Baso # Seg Neutrophils % Seg Neuts % (Manual) Lymphocytes % (Manual) 8.0 L Monocytes % (Manual) Eosinophils % (Manual) Basophils % (Manual) Nucleated RBC % Seg Neutrophils # 11.9 H Seg Neutrophils # Man Lymphocytes # (Manual) 1.0 L Monocytes # (Manual) Eosinophils # (Manual) Basophils # (Manual) PT INR Fibrinogen dRVVT Confirm Interp Factor V Activity POC ABG pH POC ABG pCO2 POC ABG pO2 ABG pO2 ABG HCO3 ABG Base Excess ABG Hemoglobin Oxyhemoglobin Sodium Potassium Chloride Carbon Dioxide BUN Creatinine Glucose POC Glucose 55 L 199 H Lactic Acid Calcium Ionized Calcium Phosphorus Magnesium Direct Bilirubin AST ALT Alkaline Phosphatase Lactate Dehydrogenase Troponin T C-Reactive Protein Total Protein Albumin Prealbumin Triglycerides Cholesterol LDL Cholesterol Direct HDL Cholesterol 25-OH Vitamin D Total PTH Intact Urine pH Urine WBC (Auto) Urine Creatinine Urine Total Protein Fluid Total Protein Vancomycin Trough Rheumatoid Factor Complement C4 Miscellaneous Test Crossmatch 10/03/16 10/03/16 10/03/16 05:10 12:14 13:18 WBC RBC Hgb Hct MCV MCH MCHC RDW Plt Count Lymph % (Auto) [place] % (Auto) Lymph # [place] # Baso # Seg Neutrophils % Seg Neuts % (Manual) Lymphocytes % (Manual) Monocytes % (Manual) Eosinophils % (Manual) Basophils % (Manual) Nucleated RBC % Seg Neutrophils # Seg Neutrophils # Man Lymphocytes # (Manual) Monocytes # (Manual) Eosinophils # (Manual) Basophils # (Manual) PT INR Fibrinogen dRVVT Confirm Interp Factor V Activity POC ABG pH POC ABG pCO2 POC ABG pO2 ABG pO2 ABG HCO3 ABG Base Excess ABG Hemoglobin Oxyhemoglobin Sodium 129 L Potassium 3.3 L Chloride 88.8 L Carbon Dioxide 20 L BUN 29 H Creatinine 2.8 H Glucose POC Glucose 68 L 127 H Lactic Acid Calcium 7.2 L Ionized Calcium Phosphorus Magnesium Direct Bilirubin AST ALT Alkaline Phosphatase Lactate Dehydrogenase Troponin T C-Reactive Protein Total Protein Albumin Prealbumin Triglycerides Cholesterol LDL Cholesterol Direct HDL Cholesterol 25-OH Vitamin D Total PTH Intact Urine pH Urine WBC (Auto) Urine Creatinine Urine Total Protein Fluid Total Protein Vancomycin Trough Rheumatoid Factor Complement C4 Miscellaneous Test Crossmatch 10/03/16 10/03/16 10/03/16 14:42 18:21 19:09 WBC RBC Hgb Hct MCV MCH MCHC RDW Plt Count Lymph % (Auto) [place] % (Auto) Lymph # [place] # Baso # Seg Neutrophils % Seg Neuts % (Manual) Lymphocytes % (Manual) Monocytes % (Manual) Eosinophils % (Manual) Basophils % (Manual) Nucleated RBC % Seg Neutrophils # Seg Neutrophils # Man Lymphocytes # (Manual) Monocytes # (Manual) Eosinophils # (Manual) Basophils # (Manual) PT INR Fibrinogen dRVVT Confirm Interp Factor V Activity POC ABG pH 7.499 H POC ABG pCO2 28.4 L POC ABG pO2 44 L ABG pO2 ABG HCO3 ABG Base Excess ABG Hemoglobin Oxyhemoglobin Sodium Potassium Chloride Carbon Dioxide BUN Creatinine Glucose POC Glucose 64 L 205 H Lactic Acid Calcium Ionized Calcium Phosphorus Magnesium Direct Bilirubin AST ALT Alkaline Phosphatase Lactate Dehydrogenase Troponin T C-Reactive Protein Total Protein Albumin Prealbumin Triglycerides Cholesterol LDL Cholesterol Direct HDL Cholesterol 25-OH Vitamin D Total PTH Intact Urine pH Urine WBC (Auto) Urine Creatinine Urine Total Protein Fluid Total Protein Vancomycin Trough Rheumatoid Factor Complement C4 Miscellaneous Test Crossmatch 10/03/16 10/04/16 10/04/16 23:33 04:18 06:30 WBC RBC 2.54 L Hgb 7.1 L Hct 21.7 L MCV MCH MCHC RDW 19.5 H Plt Count 76 L Lymph % (Auto) [place] % (Auto) Lymph # [place] # Baso # Seg Neutrophils % Seg Neuts % (Manual) 88.0 H Lymphocytes % (Manual) 6.0 L Monocytes % (Manual) Eosinophils % (Manual) Basophils % (Manual) Nucleated RBC % Seg Neutrophils # Seg Neutrophils # Man 8.8 H Lymphocytes # (Manual) 0.6 L Monocytes # (Manual) Eosinophils # (Manual) Basophils # (Manual) PT INR Fibrinogen dRVVT Confirm Interp Factor V Activity POC ABG pH 7.461 H POC ABG pCO2 33.6 L POC ABG pO2 211 H ABG pO2 ABG HCO3 ABG Base Excess ABG Hemoglobin Oxyhemoglobin Sodium Potassium Chloride Carbon Dioxide BUN Creatinine Glucose POC Glucose 136 H Lactic Acid Calcium Ionized Calcium Phosphorus Magnesium Direct Bilirubin AST ALT Alkaline Phosphatase Lactate Dehydrogenase Troponin T C-Reactive Protein Total Protein Albumin Prealbumin Triglycerides Cholesterol LDL Cholesterol Direct HDL Cholesterol 25-OH Vitamin D Total PTH Intact Urine pH Urine WBC (Auto) Urine Creatinine Urine Total Protein Fluid Total Protein Vancomycin Trough Rheumatoid Factor Complement C4 Miscellaneous Test Crossmatch 10/04/16 10/04/16 10/04/16 06:30 11:45 17:54 WBC RBC Hgb Hct MCV MCH MCHC RDW Plt Count Lymph % (Auto) [place] % (Auto) Lymph # [place] # Baso # Seg Neutrophils % Seg Neuts % (Manual) Lymphocytes % (Manual) Monocytes % (Manual) Eosinophils % (Manual) Basophils % (Manual) Nucleated RBC % Seg Neutrophils # Seg Neutrophils # Man Lymphocytes # (Manual) Monocytes # (Manual) Eosinophils # (Manual) Basophils # (Manual) PT INR Fibrinogen dRVVT Confirm Interp Factor V Activity POC ABG pH POC ABG pCO2 POC ABG pO2 ABG pO2 ABG HCO3 ABG Base Excess ABG Hemoglobin Oxyhemoglobin Sodium 128 L Potassium Chloride 87.4 L Carbon Dioxide 20 L BUN 34 H Creatinine 2.9 H Glucose 127 H POC Glucose 158 H 160 H Lactic Acid Calcium 7.4 L Ionized Calcium Phosphorus Magnesium Direct Bilirubin AST ALT Alkaline Phosphatase Lactate Dehydrogenase Troponin T C-Reactive Protein Total Protein Albumin Prealbumin Triglycerides Cholesterol LDL Cholesterol Direct HDL Cholesterol 25-OH Vitamin D Total PTH Intact Urine pH Urine WBC (Auto) Urine Creatinine Urine Total Protein Fluid Total Protein Vancomycin Trough Rheumatoid Factor Complement C4 Miscellaneous Test Crossmatch 10/04/16 10/05/16 10/05/16 23:25 04:30 05:00 WBC RBC 2.64 L Hgb 7.5 L Hct 22.6 L MCV MCH MCHC RDW 19.3 H Plt Count 80 L Lymph % (Auto) [place] % (Auto) Lymph # [place] # Baso # Seg Neutrophils % Seg Neuts % (Manual) Lymphocytes % (Manual) 12.0 L Monocytes % (Manual) Eosinophils % (Manual) Basophils % (Manual) Nucleated RBC % Seg Neutrophils # Seg Neutrophils # Man Lymphocytes # (Manual) Monocytes # (Manual) Eosinophils # (Manual) Basophils # (Manual) PT INR Fibrinogen dRVVT Confirm Interp Factor V Activity POC ABG pH 7.475 H POC ABG pCO2 33.3 L POC ABG pO2 140 H ABG pO2 ABG HCO3 ABG Base Excess ABG Hemoglobin Oxyhemoglobin Sodium Potassium Chloride Carbon Dioxide BUN Creatinine Glucose POC Glucose 141 H Lactic Acid Calcium Ionized Calcium Phosphorus Magnesium Direct Bilirubin AST ALT Alkaline Phosphatase Lactate Dehydrogenase Troponin T C-Reactive Protein Total Protein Albumin Prealbumin Triglycerides Cholesterol LDL Cholesterol Direct HDL Cholesterol 25-OH Vitamin D Total PTH Intact Urine pH Urine WBC (Auto) Urine Creatinine Urine Total Protein Fluid Total Protein Vancomycin Trough Rheumatoid Factor Complement C4 Miscellaneous Test Crossmatch 10/05/16 10/05/16 10/05/16 05:00 05:09 12:58 WBC RBC Hgb Hct MCV MCH MCHC RDW Plt Count Lymph % (Auto) [place] % (Auto) Lymph # [place] # Baso # Seg Neutrophils % Seg Neuts % (Manual) Lymphocytes % (Manual) Monocytes % (Manual) Eosinophils % (Manual) Basophils % (Manual) Nucleated RBC % Seg Neutrophils # Seg Neutrophils # Man Lymphocytes # (Manual) Monocytes # (Manual) Eosinophils # (Manual) Basophils # (Manual) PT INR Fibrinogen dRVVT Confirm Interp Factor V Activity POC ABG pH POC ABG pCO2 POC ABG pO2 ABG pO2 ABG HCO3 ABG Base Excess ABG Hemoglobin Oxyhemoglobin Sodium 131 L Potassium Chloride 94.0 L Carbon Dioxide 20 L BUN 22 H Creatinine 2.0 H Glucose 123 H POC Glucose 166 H 179 H Lactic Acid Calcium 7.7 L Ionized Calcium Phosphorus 2.20 L D Magnesium Direct Bilirubin AST ALT Alkaline Phosphatase Lactate Dehydrogenase Troponin T C-Reactive Protein Total Protein Albumin Prealbumin Triglycerides Cholesterol LDL Cholesterol Direct HDL Cholesterol 25-OH Vitamin D Total PTH Intact Urine pH Urine WBC (Auto) Urine Creatinine Urine Total Protein Fluid Total Protein Vancomycin Trough Rheumatoid Factor Complement C4 Miscellaneous Test Crossmatch 10/05/16 10/05/16 10/05/16 15:50 18:53 23:12 WBC RBC Hgb Hct MCV MCH MCHC RDW Plt Count Lymph % (Auto) [place] % (Auto) Lymph # [place] # Baso # Seg Neutrophils % Seg Neuts % (Manual) Lymphocytes % (Manual) Monocytes % (Manual) Eosinophils % (Manual) Basophils % (Manual) Nucleated RBC % Seg Neutrophils # Seg Neutrophils # Man Lymphocytes # (Manual) Monocytes # (Manual) Eosinophils # (Manual) Basophils # (Manual) PT INR Fibrinogen dRVVT Confirm Interp Factor V Activity POC ABG pH POC ABG pCO2 POC ABG pO2 ABG pO2 ABG HCO3 ABG Base Excess ABG Hemoglobin Oxyhemoglobin Sodium Potassium Chloride Carbon Dioxide BUN Creatinine Glucose POC Glucose 150 H 164 H Lactic Acid Calcium Ionized Calcium Phosphorus Magnesium Direct Bilirubin AST ALT Alkaline Phosphatase Lactate Dehydrogenase Troponin T C-Reactive Protein Total Protein Albumin Prealbumin Triglycerides Cholesterol LDL Cholesterol Direct HDL Cholesterol 25-OH Vitamin D Total PTH Intact Urine pH Urine WBC (Auto) Urine Creatinine Urine Total Protein Fluid Total Protein Vancomycin Trough Rheumatoid Factor Complement C4 Miscellaneous Test Crossmatch See Detail 10/06/16 10/06/16 10/06/16 03:50 03:50 04:53 WBC RBC 3.00 L Hgb 8.6 L Hct 25.8 L MCV MCH MCHC RDW 17.9 H Plt Count 65 L Lymph % (Auto) [place] % (Auto) Lymph # [place] # Baso # Seg Neutrophils % Seg Neuts % (Manual) 30.0 L Lymphocytes % (Manual) 5.0 L Monocytes % (Manual) Eosinophils % (Manual) Basophils % (Manual) Nucleated RBC % Seg Neutrophils # Seg Neutrophils # Man Lymphocytes # (Manual) 0.4 L Monocytes # (Manual) Eosinophils # (Manual) Basophils # (Manual) PT INR Fibrinogen dRVVT Confirm Interp Factor V Activity POC ABG pH 7.310 L POC ABG pCO2 49.0 H POC ABG pO2 ABG pO2 ABG HCO3 ABG Base Excess ABG Hemoglobin Oxyhemoglobin Sodium 133 L Potassium Chloride 95.9 L Carbon Dioxide BUN 26 H Creatinine 2.0 H Glucose 116 H POC Glucose Lactic Acid Calcium 7.8 L Ionized Calcium Phosphorus Magnesium Direct Bilirubin AST ALT Alkaline Phosphatase Lactate Dehydrogenase Troponin T C-Reactive Protein Total Protein Albumin Prealbumin Triglycerides Cholesterol LDL Cholesterol Direct HDL Cholesterol 25-OH Vitamin D Total PTH Intact Urine pH Urine WBC (Auto) Urine Creatinine Urine Total Protein Fluid Total Protein Vancomycin Trough Rheumatoid Factor Complement C4 Miscellaneous Test Crossmatch 10/06/16 10/06/16 10/06/16 05:23 11:52 18:34 WBC RBC Hgb Hct MCV MCH MCHC RDW Plt Count Lymph % (Auto) [place] % (Auto) Lymph # [place] # Baso # Seg Neutrophils % Seg Neuts % (Manual) Lymphocytes % (Manual) Monocytes % (Manual) Eosinophils % (Manual) Basophils % (Manual) Nucleated RBC % Seg Neutrophils # Seg Neutrophils # Man Lymphocytes # (Manual) Monocytes # (Manual) Eosinophils # (Manual) Basophils # (Manual) PT INR Fibrinogen dRVVT Confirm Interp Factor V Activity POC ABG pH POC ABG pCO2 POC ABG pO2 ABG pO2 ABG HCO3 ABG Base Excess ABG Hemoglobin Oxyhemoglobin Sodium Potassium Chloride Carbon Dioxide BUN Creatinine Glucose POC Glucose 126 H 116 H 129 H Lactic Acid Calcium Ionized Calcium Phosphorus Magnesium Direct Bilirubin AST ALT Alkaline Phosphatase Lactate Dehydrogenase Troponin T C-Reactive Protein Total Protein Albumin Prealbumin Triglycerides Cholesterol LDL Cholesterol Direct HDL Cholesterol 25-OH Vitamin D Total PTH Intact Urine pH Urine WBC (Auto) Urine Creatinine Urine Total Protein Fluid Total Protein Vancomycin Trough Rheumatoid Factor Complement C4 Miscellaneous Test Crossmatch 10/07/16 10/07/16 10/07/16 03:45 05:00 10:00 WBC 17.0 H RBC 2.68 L Hgb 7.3 L Hct 25.3 L MCV MCH 27 L MCHC 29 L RDW 19.6 H Plt Count 74 L Lymph % (Auto) [place] % (Auto) Lymph # [place] # Baso # Seg Neutrophils % Seg Neuts % (Manual) Lymphocytes % (Manual) 12.0 L Monocytes % (Manual) Eosinophils % (Manual) Basophils % (Manual) Nucleated RBC % 4.0 H Seg Neutrophils # Seg Neutrophils # Man 10.7 H Lymphocytes # (Manual) Monocytes # (Manual) Eosinophils # (Manual) Basophils # (Manual) PT INR Fibrinogen dRVVT Confirm Interp Factor V Activity POC ABG pH POC ABG pCO2 POC ABG pO2 ABG pO2 ABG HCO3 ABG Base Excess ABG Hemoglobin Oxyhemoglobin Sodium 130 L Potassium 3.2 L Chloride 93.9 L Carbon Dioxide 20 L BUN 44 H Creatinine 2.7 H Glucose 129 H POC Glucose Lactic Acid Calcium 7.4 L Ionized Calcium Phosphorus Magnesium Direct Bilirubin AST ALT 6 L Alkaline Phosphatase 195 H Lactate Dehydrogenase Troponin T C-Reactive Protein Total Protein 4.9 L Albumin 1.0 L Prealbumin Triglycerides Cholesterol LDL Cholesterol Direct HDL Cholesterol 25-OH Vitamin D Total PTH Intact Urine pH Urine WBC (Auto) Urine Creatinine Urine Total Protein Fluid Total Protein Vancomycin Trough Rheumatoid Factor Complement C4 Miscellaneous Test Flexitest 1 H Crossmatch 10/07/16 10/07/16 10/07/16 10:00 11:24 18:10 WBC RBC Hgb Hct MCV MCH MCHC RDW Plt Count Lymph % (Auto) [place] % (Auto) Lymph # [place] # Baso # Seg Neutrophils % Seg Neuts % (Manual) Lymphocytes % (Manual) Monocytes % (Manual) Eosinophils % (Manual) Basophils % (Manual) Nucleated RBC % Seg Neutrophils # Seg Neutrophils # Man Lymphocytes # (Manual) Monocytes # (Manual) Eosinophils # (Manual) Basophils # (Manual) PT INR Fibrinogen dRVVT Confirm Interp Factor V Activity POC ABG pH POC ABG pCO2 POC ABG pO2 ABG pO2 ABG HCO3 ABG Base Excess ABG Hemoglobin Oxyhemoglobin Sodium Potassium Chloride Carbon Dioxide BUN Creatinine Glucose POC Glucose 116 H 130 H Lactic Acid Calcium Ionized Calcium Phosphorus Magnesium Direct Bilirubin AST ALT Alkaline Phosphatase Lactate Dehydrogenase Troponin T C-Reactive Protein 19.40 H Total Protein Albumin Prealbumin Triglycerides Cholesterol LDL Cholesterol Direct HDL Cholesterol 25-OH Vitamin D Total PTH Intact Urine pH Urine WBC (Auto) Urine Creatinine Urine Total Protein Fluid Total Protein Vancomycin Trough Rheumatoid Factor Complement C4 Miscellaneous Test Crossmatch 10/07/16 10/08/16 10/08/16 18:30 00:00 04:00 WBC RBC Hgb Hct MCV MCH MCHC RDW Plt Count Lymph % (Auto) [place] % (Auto) Lymph # [place] # Baso # Seg Neutrophils % Seg Neuts % (Manual) Lymphocytes % (Manual) Monocytes % (Manual) Eosinophils % (Manual) Basophils % (Manual) Nucleated RBC % Seg Neutrophils # Seg Neutrophils # Man Lymphocytes # (Manual) Monocytes # (Manual) Eosinophils # (Manual) Basophils # (Manual) PT INR Fibrinogen dRVVT Confirm Interp Factor V Activity POC ABG pH POC ABG pCO2 POC ABG pO2 ABG pO2 ABG HCO3 ABG Base Excess ABG Hemoglobin Oxyhemoglobin Sodium 132 L Potassium 3.3 L Chloride 93.6 L Carbon Dioxide 17 L BUN 59 H Creatinine 2.7 H Glucose 121 H POC Glucose 122 H Lactic Acid Calcium 7.6 L Ionized Calcium Phosphorus Magnesium Direct Bilirubin AST ALT Alkaline Phosphatase Lactate Dehydrogenase Troponin T C-Reactive Protein Total Protein Albumin Prealbumin Triglycerides Cholesterol LDL Cholesterol Direct HDL Cholesterol 25-OH Vitamin D Total PTH Intact Urine pH Urine WBC (Auto) > 182.0 H Urine Creatinine Urine Total Protein Fluid Total Protein Vancomycin Trough Rheumatoid Factor Complement C4 Miscellaneous Test Crossmatch 10/08/16 10/08/16 10/08/16 04:30 05:30 11:51 WBC RBC 5.15 H Hgb 14.4 H D Hct 44.5 H D MCV MCH MCHC RDW 19.5 H Plt Count 56 L Lymph % (Auto) [place] % (Auto) Lymph # [place] # Baso # Seg Neutrophils % Seg Neuts % (Manual) 24.0 L Lymphocytes % (Manual) 8.0 L Monocytes % (Manual) Eosinophils % (Manual) Basophils % (Manual) Nucleated RBC % 9.0 H Seg Neutrophils # Seg Neutrophils # Man Lymphocytes # (Manual) 0.7 L Monocytes # (Manual) Eosinophils # (Manual) Basophils # (Manual) PT INR Fibrinogen dRVVT Confirm Interp Factor V Activity POC ABG pH POC ABG pCO2 POC ABG pO2 ABG pO2 ABG HCO3 ABG Base Excess ABG Hemoglobin Oxyhemoglobin Sodium Potassium Chloride Carbon Dioxide BUN Creatinine Glucose POC Glucose 125 H 150 H Lactic Acid Calcium Ionized Calcium Phosphorus Magnesium Direct Bilirubin AST ALT Alkaline Phosphatase Lactate Dehydrogenase Troponin T C-Reactive Protein Total Protein Albumin Prealbumin Triglycerides Cholesterol LDL Cholesterol Direct HDL Cholesterol 25-OH Vitamin D Total PTH Intact Urine pH Urine WBC (Auto) Urine Creatinine Urine Total Protein Fluid Total Protein Vancomycin Trough Rheumatoid Factor Complement C4 Miscellaneous Test Crossmatch 10/08/16 10/08/16 10/08/16 12:49 17:07 19:30 WBC RBC Hgb 7.1 L D Hct 22.4 L D MCV MCH MCHC RDW Plt Count Lymph % (Auto) [place] % (Auto) Lymph # [place] # Baso # Seg Neutrophils % Seg Neuts % (Manual) Lymphocytes % (Manual) Monocytes % (Manual) Eosinophils % (Manual) Basophils % (Manual) Nucleated RBC % Seg Neutrophils # Seg Neutrophils # Man Lymphocytes # (Manual) Monocytes # (Manual) Eosinophils # (Manual) Basophils # (Manual) PT INR Fibrinogen dRVVT Confirm Interp Factor V Activity POC ABG pH POC ABG pCO2 28.2 L POC ABG pO2 111 H ABG pO2 ABG HCO3 ABG Base Excess ABG Hemoglobin Oxyhemoglobin Sodium Potassium Chloride Carbon Dioxide BUN Creatinine Glucose POC Glucose 145 H Lactic Acid Calcium Ionized Calcium Phosphorus Magnesium Direct Bilirubin AST ALT Alkaline Phosphatase Lactate Dehydrogenase Troponin T C-Reactive Protein Total Protein Albumin Prealbumin Triglycerides Cholesterol LDL Cholesterol Direct HDL Cholesterol 25-OH Vitamin D Total PTH Intact Urine pH Urine WBC (Auto) Urine Creatinine Urine Total Protein Fluid Total Protein Vancomycin Trough Rheumatoid Factor Complement C4 Miscellaneous Test Crossmatch 10/08/16 10/09/16 10/09/16 19:30 03:45 03:45 WBC 12.6 H RBC 2.36 L Hgb 6.7 L Hct 21.1 L MCV MCH MCHC RDW 19.5 H Plt Count 75 L Lymph % (Auto) [place] % (Auto) Lymph # [place] # Baso # Seg Neutrophils % Seg Neuts % (Manual) Lymphocytes % (Manual) Monocytes % (Manual) 10.0 H Eosinophils % (Manual) Basophils % (Manual) Nucleated RBC % 3.0 H Seg Neutrophils # Seg Neutrophils # Man Lymphocytes # (Manual) Monocytes # (Manual) 1.3 H Eosinophils # (Manual) Basophils # (Manual) PT 18.0 H INR 1.41 H Fibrinogen dRVVT Confirm Interp Factor V Activity POC ABG pH POC ABG pCO2 POC ABG pO2 ABG pO2 ABG HCO3 ABG Base Excess ABG Hemoglobin Oxyhemoglobin Sodium 135 L Potassium Chloride Carbon Dioxide 17 L BUN 81 H Creatinine 3.2 H Glucose 109 H POC Glucose Lactic Acid Calcium 7.4 L Ionized Calcium Phosphorus 4.60 H D Magnesium Direct Bilirubin AST ALT Alkaline Phosphatase Lactate Dehydrogenase Troponin T C-Reactive Protein Total Protein Albumin Prealbumin Triglycerides Cholesterol LDL Cholesterol Direct HDL Cholesterol 25-OH Vitamin D Total PTH Intact Urine pH Urine WBC (Auto) Urine Creatinine Urine Total Protein Fluid Total Protein Vancomycin Trough Rheumatoid Factor Complement C4 Miscellaneous Test Crossmatch 10/09/16 10/09/16 10/09/16 03:45 05:14 07:20 WBC RBC Hgb Hct MCV MCH MCHC RDW Plt Count Lymph % (Auto) [place] % (Auto) Lymph # [place] # Baso # Seg Neutrophils % Seg Neuts % (Manual) Lymphocytes % (Manual) Monocytes % (Manual) Eosinophils % (Manual) Basophils % (Manual) Nucleated RBC % Seg Neutrophils # Seg Neutrophils # Man Lymphocytes # (Manual) Monocytes # (Manual) Eosinophils # (Manual) Basophils # (Manual) PT 19.0 H INR 1.51 H Fibrinogen dRVVT Confirm Interp Factor V Activity POC ABG pH POC ABG pCO2 POC ABG pO2 ABG pO2 ABG HCO3 ABG Base Excess ABG Hemoglobin Oxyhemoglobin Sodium Potassium Chloride Carbon Dioxide BUN Creatinine Glucose POC Glucose 151 H Lactic Acid Calcium Ionized Calcium Phosphorus Magnesium Direct Bilirubin AST ALT Alkaline Phosphatase Lactate Dehydrogenase Troponin T C-Reactive Protein Total Protein Albumin Prealbumin Triglycerides Cholesterol LDL Cholesterol Direct HDL Cholesterol 25-OH Vitamin D Total PTH Intact Urine pH Urine WBC (Auto) Urine Creatinine Urine Total Protein Fluid Total Protein Vancomycin Trough Rheumatoid Factor Complement C4 Miscellaneous Test Crossmatch See Detail 10/09/16 10/09/16 10/09/16 11:46 16:20 16:43 WBC RBC Hgb 7.2 L Hct 22.2 L MCV MCH MCHC RDW Plt Count Lymph % (Auto) [place] % (Auto) Lymph # [place] # Baso # Seg Neutrophils % Seg Neuts % (Manual) Lymphocytes % (Manual) Monocytes % (Manual) Eosinophils % (Manual) Basophils % (Manual) Nucleated RBC % Seg Neutrophils # Seg Neutrophils # Man Lymphocytes # (Manual) Monocytes # (Manual) Eosinophils # (Manual) Basophils # (Manual) PT INR Fibrinogen dRVVT Confirm Interp Factor V Activity POC ABG pH POC ABG pCO2 POC ABG pO2 ABG pO2 ABG HCO3 ABG Base Excess ABG Hemoglobin Oxyhemoglobin Sodium Potassium Chloride Carbon Dioxide BUN Creatinine Glucose POC Glucose 133 H 141 H Lactic Acid Calcium Ionized Calcium Phosphorus Magnesium Direct Bilirubin AST ALT Alkaline Phosphatase Lactate Dehydrogenase Troponin T C-Reactive Protein Total Protein Albumin Prealbumin Triglycerides Cholesterol LDL Cholesterol Direct HDL Cholesterol 25-OH Vitamin D Total PTH Intact Urine pH Urine WBC (Auto) Urine Creatinine Urine Total Protein Fluid Total Protein Vancomycin Trough Rheumatoid Factor Complement C4 Miscellaneous Test Crossmatch 10/10/16 10/10/16 10/10/16 05:00 05:00 11:19 WBC 18.5 H RBC 2.19 L Hgb 6.4 L Hct 19.6 L* MCV MCH MCHC RDW 19.3 H Plt Count 93 L Lymph % (Auto) [place] % (Auto) Lymph # [place] # Baso # Seg Neutrophils % Seg Neuts % (Manual) Lymphocytes % (Manual) 10.0 L Monocytes % (Manual) Eosinophils % (Manual) Basophils % (Manual) Nucleated RBC % 4.0 H Seg Neutrophils # Seg Neutrophils # Man 11.3 H Lymphocytes # (Manual) Monocytes # (Manual) Eosinophils # (Manual) Basophils # (Manual) PT INR Fibrinogen dRVVT Confirm Interp Factor V Activity POC ABG pH POC ABG pCO2 POC ABG pO2 ABG pO2 ABG HCO3 ABG Base Excess ABG Hemoglobin Oxyhemoglobin Sodium Potassium 5.7 H D Chloride Carbon Dioxide 16 L BUN 94 H Creatinine 3.1 H Glucose 131 H POC Glucose 153 H Lactic Acid Calcium 8.2 L Ionized Calcium Phosphorus 5.10 H Magnesium 2.40 H Direct Bilirubin 0.3 H AST ALT < 5 L Alkaline Phosphatase 319 H Lactate Dehydrogenase Troponin T C-Reactive Protein Total Protein 5.1 L Albumin 1.0 L Prealbumin Triglycerides Cholesterol LDL Cholesterol Direct HDL Cholesterol 25-OH Vitamin D Total PTH Intact Urine pH Urine WBC (Auto) Urine Creatinine Urine Total Protein Fluid Total Protein Vancomycin Trough Rheumatoid Factor Complement C4 Miscellaneous Test Crossmatch 10/10/16 10/10/16 10/11/16 17:50 23:30 04:15 WBC RBC Hgb Hct MCV MCH MCHC RDW Plt Count Lymph % (Auto) [place] % (Auto) Lymph # [place] # Baso # Seg Neutrophils % Seg Neuts % (Manual) Lymphocytes % (Manual) Monocytes % (Manual) Eosinophils % (Manual) Basophils % (Manual) Nucleated RBC % Seg Neutrophils # Seg Neutrophils # Man Lymphocytes # (Manual) Monocytes # (Manual) Eosinophils # (Manual) Basophils # (Manual) PT INR Fibrinogen dRVVT Confirm Interp Factor V Activity POC ABG pH POC ABG pCO2 POC ABG pO2 ABG pO2 ABG HCO3 ABG Base Excess ABG Hemoglobin Oxyhemoglobin Sodium Potassium Chloride 96.4 L Carbon Dioxide 21 L BUN 57 H Creatinine 2.1 H Glucose 151 H POC Glucose 146 H 141 H Lactic Acid Calcium 8.3 L Ionized Calcium Phosphorus Magnesium Direct Bilirubin AST ALT Alkaline Phosphatase Lactate Dehydrogenase Troponin T C-Reactive Protein Total Protein Albumin Prealbumin Triglycerides Cholesterol LDL Cholesterol Direct HDL Cholesterol 25-OH Vitamin D Total PTH Intact Urine pH Urine WBC (Auto) Urine Creatinine Urine Total Protein Fluid Total Protein Vancomycin Trough Rheumatoid Factor Complement C4 Miscellaneous Test Crossmatch 10/11/16 10/11/16 10/11/16 04:15 04:15 05:30 WBC 28.3 H RBC 3.12 L Hgb 9.3 L Hct 28.7 L D MCV MCH MCHC RDW 17.7 H Plt Count 128 L Lymph % (Auto) [place] % (Auto) Lymph # [place] # Baso # Seg Neutrophils % Seg Neuts % (Manual) Lymphocytes % (Manual) Monocytes % (Manual) Eosinophils % (Manual) Basophils % (Manual) Nucleated RBC % Seg Neutrophils # Seg Neutrophils # Man Lymphocytes # (Manual) Monocytes # (Manual) Eosinophils # (Manual) Basophils # (Manual) PT INR Fibrinogen dRVVT Confirm Interp Factor V Activity POC ABG pH POC ABG pCO2 POC ABG pO2 ABG pO2 ABG HCO3 ABG Base Excess ABG Hemoglobin Oxyhemoglobin Sodium Potassium Chloride Carbon Dioxide BUN Creatinine Glucose POC Glucose 167 H Lactic Acid Calcium Ionized Calcium Phosphorus Magnesium Direct Bilirubin AST ALT Alkaline Phosphatase Lactate Dehydrogenase Troponin T C-Reactive Protein 15.80 H Total Protein Albumin Prealbumin Triglycerides Cholesterol LDL Cholesterol Direct HDL Cholesterol 25-OH Vitamin D Total PTH Intact Urine pH Urine WBC (Auto) Urine Creatinine Urine Total Protein Fluid Total Protein Vancomycin Trough Rheumatoid Factor Complement C4 Miscellaneous Test Crossmatch 10/11/16 10/11/16 10/11/16 11:40 15:49 23:57 WBC RBC Hgb Hct MCV MCH MCHC RDW Plt Count Lymph % (Auto) [place] % (Auto) Lymph # [place] # Baso # Seg Neutrophils % Seg Neuts % (Manual) Lymphocytes % (Manual) Monocytes % (Manual) Eosinophils % (Manual) Basophils % (Manual) Nucleated RBC % Seg Neutrophils # Seg Neutrophils # Man Lymphocytes # (Manual) Monocytes # (Manual) Eosinophils # (Manual) Basophils # (Manual) PT INR Fibrinogen dRVVT Confirm Interp Factor V Activity POC ABG pH POC ABG pCO2 POC ABG pO2 ABG pO2 ABG HCO3 ABG Base Excess ABG Hemoglobin Oxyhemoglobin Sodium Potassium Chloride Carbon Dioxide BUN Creatinine Glucose POC Glucose 139 H 168 H 161 H Lactic Acid Calcium Ionized Calcium Phosphorus Magnesium Direct Bilirubin AST ALT Alkaline Phosphatase Lactate Dehydrogenase Troponin T C-Reactive Protein Total Protein Albumin Prealbumin Triglycerides Cholesterol LDL Cholesterol Direct HDL Cholesterol 25-OH Vitamin D Total PTH Intact Urine pH Urine WBC (Auto) Urine Creatinine Urine Total Protein Fluid Total Protein Vancomycin Trough Rheumatoid Factor Complement C4 Miscellaneous Test Crossmatch 10/12/16 10/12/16 10/12/16 04:40 04:40 05:44 WBC 22.5 H RBC 2.88 L Hgb 8.8 L Hct 26.8 L MCV MCH MCHC RDW 17.8 H Plt Count Lymph % (Auto) [place] % (Auto) Lymph # [place] # Baso # Seg Neutrophils % Seg Neuts % (Manual) Lymphocytes % (Manual) Monocytes % (Manual) Eosinophils % (Manual) Basophils % (Manual) Nucleated RBC % Seg Neutrophils # Seg Neutrophils # Man Lymphocytes # (Manual) Monocytes # (Manual) Eosinophils # (Manual) Basophils # (Manual) PT INR Fibrinogen dRVVT Confirm Interp Factor V Activity POC ABG pH POC ABG pCO2 POC ABG pO2 ABG pO2 ABG HCO3 ABG Base Excess ABG Hemoglobin Oxyhemoglobin Sodium 134 L Potassium Chloride 93.0 L Carbon Dioxide BUN 74 H Creatinine 2.5 H Glucose 137 H POC Glucose 158 H Lactic Acid Calcium 8.2 L Ionized Calcium Phosphorus Magnesium Direct Bilirubin AST ALT Alkaline Phosphatase Lactate Dehydrogenase Troponin T C-Reactive Protein Total Protein Albumin Prealbumin Triglycerides Cholesterol LDL Cholesterol Direct HDL Cholesterol 25-OH Vitamin D Total PTH Intact Urine pH Urine WBC (Auto) Urine Creatinine Urine Total Protein Fluid Total Protein Vancomycin Trough Rheumatoid Factor Complement C4 Miscellaneous Test Crossmatch 10/12/16 10/12/16 10/12/16 12:27 18:18 23:46 WBC RBC Hgb Hct MCV MCH MCHC RDW Plt Count Lymph % (Auto) [place] % (Auto) Lymph # [place] # Baso # Seg Neutrophils % Seg Neuts % (Manual) Lymphocytes % (Manual) Monocytes % (Manual) Eosinophils % (Manual) Basophils % (Manual) Nucleated RBC % Seg Neutrophils # Seg Neutrophils # Man Lymphocytes # (Manual) Monocytes # (Manual) Eosinophils # (Manual) Basophils # (Manual) PT INR Fibrinogen dRVVT Confirm Interp Factor V Activity POC ABG pH POC ABG pCO2 POC ABG pO2 ABG pO2 ABG HCO3 ABG Base Excess ABG Hemoglobin Oxyhemoglobin Sodium Potassium Chloride Carbon Dioxide BUN Creatinine Glucose POC Glucose 153 H 140 H 150 H Lactic Acid Calcium Ionized Calcium Phosphorus Magnesium Direct Bilirubin AST ALT Alkaline Phosphatase Lactate Dehydrogenase Troponin T C-Reactive Protein Total Protein Albumin Prealbumin Triglycerides Cholesterol LDL Cholesterol Direct HDL Cholesterol 25-OH Vitamin D Total PTH Intact Urine pH Urine WBC (Auto) Urine Creatinine Urine Total Protein Fluid Total Protein Vancomycin Trough Rheumatoid Factor Complement C4 Miscellaneous Test Crossmatch 10/13/16 10/13/16 10/13/16 06:22 09:20 12:29 WBC RBC Hgb Hct MCV MCH MCHC RDW Plt Count Lymph % (Auto) [place] % (Auto) Lymph # [place] # Baso # Seg Neutrophils % Seg Neuts % (Manual) Lymphocytes % (Manual) Monocytes % (Manual) Eosinophils % (Manual) Basophils % (Manual) Nucleated RBC % Seg Neutrophils # Seg Neutrophils # Man Lymphocytes # (Manual) Monocytes # (Manual) Eosinophils # (Manual) Basophils # (Manual) PT INR Fibrinogen dRVVT Confirm Interp Factor V Activity POC ABG pH POC ABG pCO2 POC ABG pO2 ABG pO2 ABG HCO3 ABG Base Excess ABG Hemoglobin Oxyhemoglobin Sodium Potassium Chloride Carbon Dioxide BUN Creatinine Glucose POC Glucose 165 H 193 H Lactic Acid Calcium Ionized Calcium Phosphorus Magnesium Direct Bilirubin AST ALT Alkaline Phosphatase Lactate Dehydrogenase Troponin T C-Reactive Protein Total Protein Albumin Prealbumin Triglycerides Cholesterol LDL Cholesterol Direct HDL Cholesterol 25-OH Vitamin D Total PTH Intact Urine pH Urine WBC (Auto) Urine Creatinine Urine Total Protein Fluid Total Protein Vancomycin Trough Rheumatoid Factor Complement C4 Miscellaneous Test Flexitest 1 H Crossmatch 10/13/16 10/13/16 10/13/16 18:09 Unknown Unknown WBC 23.4 H RBC 2.83 L Hgb 8.7 L Hct 26.1 L MCV MCH MCHC RDW 18.1 H Plt Count Lymph % (Auto) [place] % (Auto) Lymph # [place] # Baso # Seg Neutrophils % Seg Neuts % (Manual) Lymphocytes % (Manual) Monocytes % (Manual) Eosinophils % (Manual) Basophils % (Manual) Nucleated RBC % Seg Neutrophils # Seg Neutrophils # Man Lymphocytes # (Manual) Monocytes # (Manual) Eosinophils # (Manual) Basophils # (Manual) PT INR Fibrinogen dRVVT Confirm Interp Factor V Activity POC ABG pH POC ABG pCO2 POC ABG pO2 ABG pO2 ABG HCO3 ABG Base Excess ABG Hemoglobin Oxyhemoglobin Sodium Potassium Chloride 95.8 L Carbon Dioxide BUN 82 H Creatinine 2.6 H Glucose 152 H POC Glucose 166 H Lactic Acid Calcium Ionized Calcium Phosphorus Magnesium Direct Bilirubin AST ALT Alkaline Phosphatase Lactate Dehydrogenase Troponin T C-Reactive Protein Total Protein Albumin Prealbumin Triglycerides Cholesterol LDL Cholesterol Direct HDL Cholesterol 25-OH Vitamin D Total PTH Intact Urine pH Urine WBC (Auto) Urine Creatinine Urine Total Protein Fluid Total Protein Vancomycin Trough Rheumatoid Factor Complement C4 Miscellaneous Test Crossmatch 10/14/16 10/14/16 10/14/16 05:38 06:35 08:10 WBC 20.7 H RBC 2.81 L Hgb 8.4 L Hct 27.2 L MCV MCH MCHC RDW 19.4 H Plt Count Lymph % (Auto) [place] % (Auto) Lymph # [place] # Baso # Seg Neutrophils % Seg Neuts % (Manual) Lymphocytes % (Manual) Monocytes % (Manual) Eosinophils % (Manual) Basophils % (Manual) Nucleated RBC % Seg Neutrophils # Seg Neutrophils # Man Lymphocytes # (Manual) Monocytes # (Manual) Eosinophils # (Manual) Basophils # (Manual) PT INR Fibrinogen dRVVT Confirm Interp Factor V Activity POC ABG pH POC ABG pCO2 POC ABG pO2 ABG pO2 ABG HCO3 ABG Base Excess ABG Hemoglobin Oxyhemoglobin Sodium Potassium Chloride Carbon Dioxide BUN 58 H Creatinine 1.9 H Glucose 169 H POC Glucose 195 H Lactic Acid Calcium Ionized Calcium Phosphorus Magnesium Direct Bilirubin AST ALT Alkaline Phosphatase Lactate Dehydrogenase Troponin T C-Reactive Protein Total Protein Albumin Prealbumin Triglycerides Cholesterol LDL Cholesterol Direct HDL Cholesterol 25-OH Vitamin D Total PTH Intact Urine pH Urine WBC (Auto) Urine Creatinine Urine Total Protein Fluid Total Protein Vancomycin Trough Rheumatoid Factor Complement C4 Miscellaneous Test Crossmatch 10/14/16 10/14/16 10/14/16 11:44 17:13 23:28 WBC RBC Hgb Hct MCV MCH MCHC RDW Plt Count Lymph % (Auto) [place] % (Auto) Lymph # [place] # Baso # Seg Neutrophils % Seg Neuts % (Manual) Lymphocytes % (Manual) Monocytes % (Manual) Eosinophils % (Manual) Basophils % (Manual) Nucleated RBC % Seg Neutrophils # Seg Neutrophils # Man Lymphocytes # (Manual) Monocytes # (Manual) Eosinophils # (Manual) Basophils # (Manual) PT INR Fibrinogen dRVVT Confirm Interp Factor V Activity POC ABG pH POC ABG pCO2 POC ABG pO2 ABG pO2 ABG HCO3 ABG Base Excess ABG Hemoglobin Oxyhemoglobin Sodium Potassium Chloride Carbon Dioxide BUN Creatinine Glucose POC Glucose 174 H 121 H 151 H Lactic Acid Calcium Ionized Calcium Phosphorus Magnesium Direct Bilirubin AST ALT Alkaline Phosphatase Lactate Dehydrogenase Troponin T C-Reactive Protein Total Protein Albumin Prealbumin Triglycerides Cholesterol LDL Cholesterol Direct HDL Cholesterol 25-OH Vitamin D Total PTH Intact Urine pH Urine WBC (Auto) Urine Creatinine Urine Total Protein Fluid Total Protein Vancomycin Trough Rheumatoid Factor Complement C4 Miscellaneous Test Crossmatch 10/15/16 10/15/16 10/15/16 05:06 12:26 17:48 WBC RBC Hgb Hct MCV MCH MCHC RDW Plt Count Lymph % (Auto) [place] % (Auto) Lymph # [place] # Baso # Seg Neutrophils % Seg Neuts % (Manual) Lymphocytes % (Manual) Monocytes % (Manual) Eosinophils % (Manual) Basophils % (Manual) Nucleated RBC % Seg Neutrophils # Seg Neutrophils # Man Lymphocytes # (Manual) Monocytes # (Manual) Eosinophils # (Manual) Basophils # (Manual) PT INR Fibrinogen dRVVT Confirm Interp Factor V Activity POC ABG pH POC ABG pCO2 POC ABG pO2 ABG pO2 ABG HCO3 ABG Base Excess ABG Hemoglobin Oxyhemoglobin Sodium Potassium Chloride Carbon Dioxide BUN Creatinine Glucose POC Glucose 151 H 149 H 153 H Lactic Acid Calcium Ionized Calcium Phosphorus Magnesium Direct Bilirubin AST ALT Alkaline Phosphatase Lactate Dehydrogenase Troponin T C-Reactive Protein Total Protein Albumin Prealbumin Triglycerides Cholesterol LDL Cholesterol Direct HDL Cholesterol 25-OH Vitamin D Total PTH Intact Urine pH Urine WBC (Auto) Urine Creatinine Urine Total Protein Fluid Total Protein Vancomycin Trough Rheumatoid Factor Complement C4 Miscellaneous Test Crossmatch 10/15/16 10/15/16 10/16/16 Unknown Unknown 00:02 WBC 23.4 H RBC 2.78 L Hgb 8.5 L Hct 25.7 L MCV MCH MCHC RDW 18.7 H Plt Count Lymph % (Auto) [place] % (Auto) Lymph # [place] # Baso # Seg Neutrophils % Seg Neuts % (Manual) Lymphocytes % (Manual) Monocytes % (Manual) Eosinophils % (Manual) Basophils % (Manual) Nucleated RBC % Seg Neutrophils # Seg Neutrophils # Man Lymphocytes # (Manual) Monocytes # (Manual) Eosinophils # (Manual) Basophils # (Manual) PT INR Fibrinogen dRVVT Confirm Interp Factor V Activity POC ABG pH POC ABG pCO2 POC ABG pO2 ABG pO2 ABG HCO3 ABG Base Excess ABG Hemoglobin Oxyhemoglobin Sodium Potassium Chloride Carbon Dioxide BUN 73 H Creatinine 2.3 H Glucose 120 H POC Glucose 137 H Lactic Acid Calcium Ionized Calcium Phosphorus Magnesium Direct Bilirubin AST ALT Alkaline Phosphatase Lactate Dehydrogenase Troponin T C-Reactive Protein Total Protein Albumin Prealbumin Triglycerides Cholesterol LDL Cholesterol Direct HDL Cholesterol 25-OH Vitamin D Total PTH Intact Urine pH Urine WBC (Auto) Urine Creatinine Urine Total Protein Fluid Total Protein Vancomycin Trough Rheumatoid Factor Complement C4 Miscellaneous Test Crossmatch 10/16/16 10/16/16 10/16/16 05:44 06:25 06:25 WBC 22.5 H RBC 2.76 L Hgb 8.3 L Hct 25.2 L MCV MCH MCHC RDW 18.3 H Plt Count Lymph % (Auto) [place] % (Auto) Lymph # [place] # Baso # Seg Neutrophils % Seg Neuts % (Manual) Lymphocytes % (Manual) Monocytes % (Manual) Eosinophils % (Manual) Basophils % (Manual) Nucleated RBC % Seg Neutrophils # Seg Neutrophils # Man Lymphocytes # (Manual) Monocytes # (Manual) Eosinophils # (Manual) Basophils # (Manual) PT INR Fibrinogen dRVVT Confirm Interp Factor V Activity POC ABG pH POC ABG pCO2 POC ABG pO2 ABG pO2 ABG HCO3 ABG Base Excess ABG Hemoglobin Oxyhemoglobin Sodium Potassium Chloride Carbon Dioxide BUN 92 H Creatinine 3.0 H Glucose 138 H POC Glucose 110 H Lactic Acid Calcium Ionized Calcium Phosphorus Magnesium Direct Bilirubin AST ALT Alkaline Phosphatase Lactate Dehydrogenase Troponin T C-Reactive Protein Total Protein Albumin Prealbumin Triglycerides Cholesterol LDL Cholesterol Direct HDL Cholesterol 25-OH Vitamin D Total PTH Intact Urine pH Urine WBC (Auto) Urine Creatinine Urine Total Protein Fluid Total Protein Vancomycin Trough Rheumatoid Factor Complement C4 Miscellaneous Test Crossmatch 10/16/16 10/16/16 10/16/16 11:27 11:48 17:36 WBC RBC Hgb Hct MCV MCH MCHC RDW Plt Count Lymph % (Auto) [place] % (Auto) Lymph # [place] # Baso # Seg Neutrophils % Seg Neuts % (Manual) Lymphocytes % (Manual) Monocytes % (Manual) Eosinophils % (Manual) Basophils % (Manual) Nucleated RBC % Seg Neutrophils # Seg Neutrophils # Man Lymphocytes # (Manual) Monocytes # (Manual) Eosinophils # (Manual) Basophils # (Manual) PT INR Fibrinogen dRVVT Confirm Interp Factor V Activity POC ABG pH 7.582 H POC ABG pCO2 27.4 L POC ABG pO2 110 H ABG pO2 ABG HCO3 ABG Base Excess ABG Hemoglobin Oxyhemoglobin Sodium Potassium Chloride Carbon Dioxide BUN Creatinine Glucose POC Glucose 121 H 133 H Lactic Acid Calcium Ionized Calcium Phosphorus Magnesium Direct Bilirubin AST ALT Alkaline Phosphatase Lactate Dehydrogenase Troponin T C-Reactive Protein Total Protein Albumin Prealbumin Triglycerides Cholesterol LDL Cholesterol Direct HDL Cholesterol 25-OH Vitamin D Total PTH Intact Urine pH Urine WBC (Auto) Urine Creatinine Urine Total Protein Fluid Total Protein Vancomycin Trough Rheumatoid Factor Complement C4 Miscellaneous Test Crossmatch 10/16/16 10/17/16 10/17/16 20:48 04:24 04:24 WBC 21.4 H RBC 2.72 L Hgb 8.0 L Hct 25.2 L MCV MCH MCHC RDW 18.0 H Plt Count Lymph % (Auto) [place] % (Auto) Lymph # [place] # Baso # Seg Neutrophils % Seg Neuts % (Manual) Lymphocytes % (Manual) Monocytes % (Manual) Eosinophils % (Manual) Basophils % (Manual) Nucleated RBC % Seg Neutrophils # Seg Neutrophils # Man Lymphocytes # (Manual) Monocytes # (Manual) Eosinophils # (Manual) Basophils # (Manual) PT INR Fibrinogen dRVVT Confirm Interp Factor V Activity POC ABG pH 7.561 H POC ABG pCO2 24.4 L POC ABG pO2 77 L ABG pO2 ABG HCO3 ABG Base Excess ABG Hemoglobin Oxyhemoglobin Sodium 148 H Potassium Chloride Carbon Dioxide BUN 104 H Creatinine 3.0 H Glucose 149 H POC Glucose Lactic Acid Calcium Ionized Calcium Phosphorus Magnesium Direct Bilirubin AST ALT Alkaline Phosphatase 138 H Lactate Dehydrogenase Troponin T C-Reactive Protein Total Protein 6.2 L Albumin 1.5 L Prealbumin Triglycerides Cholesterol LDL Cholesterol Direct HDL Cholesterol 25-OH Vitamin D Total PTH Intact Urine pH Urine WBC (Auto) Urine Creatinine Urine Total Protein Fluid Total Protein Vancomycin Trough Rheumatoid Factor Complement C4 Miscellaneous Test Crossmatch 10/17/16 10/17/16 10/17/16 06:02 12:17 17:14 WBC RBC Hgb Hct MCV MCH MCHC RDW Plt Count Lymph % (Auto) [place] % (Auto) Lymph # [place] # Baso # Seg Neutrophils % Seg Neuts % (Manual) Lymphocytes % (Manual) Monocytes % (Manual) Eosinophils % (Manual) Basophils % (Manual) Nucleated RBC % Seg Neutrophils # Seg Neutrophils # Man Lymphocytes # (Manual) Monocytes # (Manual) Eosinophils # (Manual) Basophils # (Manual) PT INR Fibrinogen dRVVT Confirm Interp Factor V Activity POC ABG pH POC ABG pCO2 POC ABG pO2 ABG pO2 ABG HCO3 ABG Base Excess ABG Hemoglobin Oxyhemoglobin Sodium Potassium Chloride Carbon Dioxide BUN Creatinine Glucose POC Glucose 170 H 167 H 126 H Lactic Acid Calcium Ionized Calcium Phosphorus Magnesium Direct Bilirubin AST ALT Alkaline Phosphatase Lactate Dehydrogenase Troponin T C-Reactive Protein Total Protein Albumin Prealbumin Triglycerides Cholesterol LDL Cholesterol Direct HDL Cholesterol 25-OH Vitamin D Total PTH Intact Urine pH Urine WBC (Auto) Urine Creatinine Urine Total Protein Fluid Total Protein Vancomycin Trough Rheumatoid Factor Complement C4 Miscellaneous Test Crossmatch 10/17/16 10/18/16 10/18/16 23:17 04:00 04:00 WBC 20.7 H RBC 2.47 L Hgb 7.4 L Hct 22.9 L MCV MCH MCHC RDW 17.5 H Plt Count Lymph % (Auto) [place] % (Auto) Lymph # [place] # Baso # Seg Neutrophils % Seg Neuts % (Manual) Lymphocytes % (Manual) Monocytes % (Manual) Eosinophils % (Manual) Basophils % (Manual) Nucleated RBC % Seg Neutrophils # Seg Neutrophils # Man Lymphocytes # (Manual) Monocytes # (Manual) Eosinophils # (Manual) Basophils # (Manual) PT INR Fibrinogen dRVVT Confirm Interp Factor V Activity POC ABG pH POC ABG pCO2 POC ABG pO2 ABG pO2 ABG HCO3 ABG Base Excess ABG Hemoglobin Oxyhemoglobin Sodium 149 H Potassium Chloride 107.9 H Carbon Dioxide 20 L BUN 117 H Creatinine 3.2 H Glucose 119 H POC Glucose 121 H Lactic Acid Calcium Ionized Calcium Phosphorus Magnesium Direct Bilirubin AST ALT Alkaline Phosphatase Lactate Dehydrogenase Troponin T C-Reactive Protein Total Protein Albumin Prealbumin Triglycerides Cholesterol LDL Cholesterol Direct HDL Cholesterol 25-OH Vitamin D Total PTH Intact Urine pH Urine WBC (Auto) Urine Creatinine Urine Total Protein Fluid Total Protein Vancomycin Trough Rheumatoid Factor Complement C4 Miscellaneous Test Crossmatch 10/18/16 10/18/16 10/18/16 05:23 10:46 17:30 WBC RBC Hgb Hct MCV MCH MCHC RDW Plt Count Lymph % (Auto) [place] % (Auto) Lymph # [place] # Baso # Seg Neutrophils % Seg Neuts % (Manual) Lymphocytes % (Manual) Monocytes % (Manual) Eosinophils % (Manual) Basophils % (Manual) Nucleated RBC % Seg Neutrophils # Seg Neutrophils # Man Lymphocytes # (Manual) Monocytes # (Manual) Eosinophils # (Manual) Basophils # (Manual) PT INR Fibrinogen dRVVT Confirm Interp Factor V Activity POC ABG pH POC ABG pCO2 POC ABG pO2 ABG pO2 ABG HCO3 ABG Base Excess ABG Hemoglobin Oxyhemoglobin Sodium Potassium Chloride Carbon Dioxide BUN Creatinine Glucose POC Glucose 119 H 155 H 124 H Lactic Acid Calcium Ionized Calcium Phosphorus Magnesium Direct Bilirubin AST ALT Alkaline Phosphatase Lactate Dehydrogenase Troponin T C-Reactive Protein Total Protein Albumin Prealbumin Triglycerides Cholesterol LDL Cholesterol Direct HDL Cholesterol 25-OH Vitamin D Total PTH Intact Urine pH Urine WBC (Auto) Urine Creatinine Urine Total Protein Fluid Total Protein Vancomycin Trough Rheumatoid Factor Complement C4 Miscellaneous Test Crossmatch 10/19/16 10/19/16 10/19/16 04:00 04:00 05:25 WBC 17.4 H RBC 2.54 L Hgb 7.7 L Hct 23.6 L MCV MCH MCHC RDW 17.3 H Plt Count Lymph % (Auto) [place] % (Auto) Lymph # [place] # Baso # Seg Neutrophils % Seg Neuts % (Manual) Lymphocytes % (Manual) Monocytes % (Manual) Eosinophils % (Manual) Basophils % (Manual) Nucleated RBC % Seg Neutrophils # Seg Neutrophils # Man Lymphocytes # (Manual) Monocytes # (Manual) Eosinophils # (Manual) Basophils # (Manual) PT INR Fibrinogen dRVVT Confirm Interp Factor V Activity POC ABG pH POC ABG pCO2 POC ABG pO2 ABG pO2 ABG HCO3 ABG Base Excess ABG Hemoglobin Oxyhemoglobin Sodium Potassium Chloride Carbon Dioxide BUN 72 H Creatinine 2.1 H Glucose 116 H POC Glucose 119 H Lactic Acid Calcium Ionized Calcium Phosphorus Magnesium Direct Bilirubin AST ALT Alkaline Phosphatase Lactate Dehydrogenase Troponin T C-Reactive Protein Total Protein Albumin Prealbumin Triglycerides Cholesterol LDL Cholesterol Direct HDL Cholesterol 25-OH Vitamin D Total PTH Intact Urine pH Urine WBC (Auto) Urine Creatinine Urine Total Protein Fluid Total Protein Vancomycin Trough Rheumatoid Factor Complement C4 Miscellaneous Test Crossmatch 10/19/16 10/19/16 10/20/16 11:46 23:59 06:00 WBC RBC Hgb Hct MCV MCH MCHC RDW Plt Count Lymph % (Auto) [place] % (Auto) Lymph # [place] # Baso # Seg Neutrophils % Seg Neuts % (Manual) Lymphocytes % (Manual) Monocytes % (Manual) Eosinophils % (Manual) Basophils % (Manual) Nucleated RBC % Seg Neutrophils # Seg Neutrophils # Man Lymphocytes # (Manual) Monocytes # (Manual) Eosinophils # (Manual) Basophils # (Manual) PT INR Fibrinogen dRVVT Confirm Interp Factor V Activity POC ABG pH POC ABG pCO2 POC ABG pO2 ABG pO2 ABG HCO3 ABG Base Excess ABG Hemoglobin Oxyhemoglobin Sodium Potassium Chloride Carbon Dioxide 17 L BUN 94 H Creatinine 2.7 H Glucose POC Glucose 116 H 117 H Lactic Acid Calcium Ionized Calcium Phosphorus Magnesium Direct Bilirubin AST ALT Alkaline Phosphatase Lactate Dehydrogenase Troponin T C-Reactive Protein Total Protein Albumin Prealbumin Triglycerides Cholesterol LDL Cholesterol Direct HDL Cholesterol 25-OH Vitamin D Total PTH Intact Urine pH Urine WBC (Auto) Urine Creatinine Urine Total Protein Fluid Total Protein Vancomycin Trough Rheumatoid Factor Complement C4 Miscellaneous Test Crossmatch 10/20/16 10/20/16 10/20/16 06:00 11:49 16:00 WBC 19.7 H RBC 2.51 L Hgb 7.7 L Hct 23.5 L MCV MCH MCHC RDW 17.5 H Plt Count Lymph % (Auto) [place] % (Auto) Lymph # [place] # Baso # Seg Neutrophils % Seg Neuts % (Manual) Lymphocytes % (Manual) Monocytes % (Manual) Eosinophils % (Manual) Basophils % (Manual) Nucleated RBC % Seg Neutrophils # Seg Neutrophils # Man Lymphocytes # (Manual) Monocytes # (Manual) Eosinophils # (Manual) Basophils # (Manual) PT INR Fibrinogen dRVVT Confirm Interp Factor V Activity POC ABG pH POC ABG pCO2 POC ABG pO2 ABG pO2 ABG HCO3 ABG Base Excess ABG Hemoglobin Oxyhemoglobin Sodium Potassium Chloride Carbon Dioxide BUN Creatinine Glucose POC Glucose 117 H Lactic Acid Calcium Ionized Calcium Phosphorus Magnesium Direct Bilirubin AST ALT Alkaline Phosphatase Lactate Dehydrogenase Troponin T C-Reactive Protein Total Protein Albumin Prealbumin Triglycerides Cholesterol LDL Cholesterol Direct HDL Cholesterol 25-OH Vitamin D Total PTH Intact Urine pH Urine WBC (Auto) Urine Creatinine Urine Total Protein Fluid Total Protein Vancomycin Trough Rheumatoid Factor Complement C4 Miscellaneous Test Flexitest 1 H Crossmatch 10/20/16 10/20/16 10/21/16 18:36 23:39 04:00 WBC RBC Hgb Hct MCV MCH MCHC RDW Plt Count Lymph % (Auto) [place] % (Auto) Lymph # [place] # Baso # Seg Neutrophils % Seg Neuts % (Manual) Lymphocytes % (Manual) Monocytes % (Manual) Eosinophils % (Manual) Basophils % (Manual) Nucleated RBC % Seg Neutrophils # Seg Neutrophils # Man Lymphocytes # (Manual) Monocytes # (Manual) Eosinophils # (Manual) Basophils # (Manual) PT INR Fibrinogen dRVVT Confirm Interp Factor V Activity POC ABG pH POC ABG pCO2 POC ABG pO2 ABG pO2 ABG HCO3 ABG Base Excess ABG Hemoglobin Oxyhemoglobin Sodium Potassium 5.4 H D Chloride Carbon Dioxide 15 L BUN 110 H Creatinine 3.0 H Glucose POC Glucose 127 H 114 H Lactic Acid Calcium Ionized Calcium Phosphorus Magnesium Direct Bilirubin AST ALT Alkaline Phosphatase Lactate Dehydrogenase Troponin T C-Reactive Protein Total Protein Albumin Prealbumin Triglycerides Cholesterol LDL Cholesterol Direct HDL Cholesterol 25-OH Vitamin D Total PTH Intact Urine pH Urine WBC (Auto) Urine Creatinine Urine Total Protein Fluid Total Protein Vancomycin Trough Rheumatoid Factor Complement C4 Miscellaneous Test Crossmatch 10/21/16 10/21/16 10/22/16 05:54 23:46 05:18 WBC RBC Hgb Hct MCV MCH MCHC RDW Plt Count Lymph % (Auto) [place] % (Auto) Lymph # [place] # Baso # Seg Neutrophils % Seg Neuts % (Manual) Lymphocytes % (Manual) Monocytes % (Manual) Eosinophils % (Manual) Basophils % (Manual) Nucleated RBC % Seg Neutrophils # Seg Neutrophils # Man Lymphocytes # (Manual) Monocytes # (Manual) Eosinophils # (Manual) Basophils # (Manual) PT INR Fibrinogen dRVVT Confirm Interp Factor V Activity POC ABG pH POC ABG pCO2 POC ABG pO2 ABG pO2 ABG HCO3 ABG Base Excess ABG Hemoglobin Oxyhemoglobin Sodium Potassium Chloride Carbon Dioxide BUN Creatinine Glucose POC Glucose 119 H 108 H 109 H Lactic Acid Calcium Ionized Calcium Phosphorus Magnesium Direct Bilirubin AST ALT Alkaline Phosphatase Lactate Dehydrogenase Troponin T C-Reactive Protein Total Protein Albumin Prealbumin Triglycerides Cholesterol LDL Cholesterol Direct HDL Cholesterol 25-OH Vitamin D Total PTH Intact Urine pH Urine WBC (Auto) Urine Creatinine Urine Total Protein Fluid Total Protein Vancomycin Trough Rheumatoid Factor Complement C4 Miscellaneous Test Crossmatch 10/22/16 10/22/16 10/22/16 06:40 06:40 06:40 WBC 14.0 H RBC 2.03 L Hgb 7.0 L Hct 20.5 L MCV 98 H MCH 34 H MCHC 35 H RDW 17.8 H Plt Count Lymph % (Auto) [place] % (Auto) 9.9 H Lymph # [place] # 1.4 H Baso # 0.2 H Seg Neutrophils % 72.0 H Seg Neuts % (Manual) Lymphocytes % (Manual) Monocytes % (Manual) Eosinophils % (Manual) Basophils % (Manual) Nucleated RBC % Seg Neutrophils # 10.0 H Seg Neutrophils # Man Lymphocytes # (Manual) Monocytes # (Manual) Eosinophils # (Manual) Basophils # (Manual) PT INR Fibrinogen dRVVT Confirm Interp Factor V Activity POC ABG pH POC ABG pCO2 POC ABG pO2 ABG pO2 ABG HCO3 ABG Base Excess ABG Hemoglobin Oxyhemoglobin Sodium 130 L D Potassium Chloride 92.4 L Carbon Dioxide 20 L BUN 50 H Creatinine 1.6 H Glucose 589 H* POC Glucose Lactic Acid Calcium 7.8 L D Ionized Calcium Phosphorus Magnesium 1.60 L Direct Bilirubin AST ALT Alkaline Phosphatase Lactate Dehydrogenase Troponin T C-Reactive Protein Total Protein Albumin Prealbumin Triglycerides Cholesterol LDL Cholesterol Direct HDL Cholesterol 25-OH Vitamin D Total PTH Intact Urine pH Urine WBC (Auto) Urine Creatinine Urine Total Protein Fluid Total Protein Vancomycin Trough Rheumatoid Factor Complement C4 Miscellaneous Test Crossmatch 10/22/16 10/22/16 10/22/16 11:39 16:44 23:36 WBC RBC Hgb Hct MCV MCH MCHC RDW Plt Count Lymph % (Auto) [place] % (Auto) Lymph # [place] # Baso # Seg Neutrophils % Seg Neuts % (Manual) Lymphocytes % (Manual) Monocytes % (Manual) Eosinophils % (Manual) Basophils % (Manual) Nucleated RBC % Seg Neutrophils # Seg Neutrophils # Man Lymphocytes # (Manual) Monocytes # (Manual) Eosinophils # (Manual) Basophils # (Manual) PT INR Fibrinogen dRVVT Confirm Interp Factor V Activity POC ABG pH POC ABG pCO2 POC ABG pO2 ABG pO2 ABG HCO3 ABG Base Excess ABG Hemoglobin Oxyhemoglobin Sodium Potassium Chloride Carbon Dioxide BUN Creatinine Glucose POC Glucose 142 H 163 H 123 H Lactic Acid Calcium Ionized Calcium Phosphorus Magnesium Direct Bilirubin AST ALT Alkaline Phosphatase Lactate Dehydrogenase Troponin T C-Reactive Protein Total Protein Albumin Prealbumin Triglycerides Cholesterol LDL Cholesterol Direct HDL Cholesterol 25-OH Vitamin D Total PTH Intact Urine pH Urine WBC (Auto) Urine Creatinine Urine Total Protein Fluid Total Protein Vancomycin Trough Rheumatoid Factor Complement C4 Miscellaneous Test Crossmatch 10/23/16 10/23/16 10/23/16 04:58 06:00 12:12 WBC RBC Hgb Hct MCV MCH MCHC RDW Plt Count Lymph % (Auto) [place] % (Auto) Lymph # [place] # Baso # Seg Neutrophils % Seg Neuts % (Manual) Lymphocytes % (Manual) Monocytes % (Manual) Eosinophils % (Manual) Basophils % (Manual) Nucleated RBC % Seg Neutrophils # Seg Neutrophils # Man Lymphocytes # (Manual) Monocytes # (Manual) Eosinophils # (Manual) Basophils # (Manual) PT INR Fibrinogen dRVVT Confirm Interp Factor V Activity POC ABG pH POC ABG pCO2 POC ABG pO2 ABG pO2 ABG HCO3 ABG Base Excess ABG Hemoglobin Oxyhemoglobin Sodium 133 L Potassium 3.5 L Chloride 96.1 L Carbon Dioxide 18 L BUN 76 H Creatinine 2.1 H Glucose POC Glucose 133 H 138 H Lactic Acid Calcium 8.3 L Ionized Calcium Phosphorus Magnesium Direct Bilirubin AST ALT Alkaline Phosphatase Lactate Dehydrogenase Troponin T C-Reactive Protein Total Protein Albumin Prealbumin Triglycerides Cholesterol LDL Cholesterol Direct HDL Cholesterol 25-OH Vitamin D Total PTH Intact Urine pH Urine WBC (Auto) Urine Creatinine Urine Total Protein Fluid Total Protein Vancomycin Trough Rheumatoid Factor Complement C4 Miscellaneous Test Crossmatch 10/23/16 10/23/16 10/24/16 16:53 23:37 04:00 WBC RBC Hgb Hct MCV MCH MCHC RDW Plt Count Lymph % (Auto) [place] % (Auto) Lymph # [place] # Baso # Seg Neutrophils % Seg Neuts % (Manual) Lymphocytes % (Manual) Monocytes % (Manual) Eosinophils % (Manual) Basophils % (Manual) Nucleated RBC % Seg Neutrophils # Seg Neutrophils # Man Lymphocytes # (Manual) Monocytes # (Manual) Eosinophils # (Manual) Basophils # (Manual) PT INR Fibrinogen dRVVT Confirm Interp Factor V Activity POC ABG pH POC ABG pCO2 POC ABG pO2 ABG pO2 ABG HCO3 ABG Base Excess ABG Hemoglobin Oxyhemoglobin Sodium 131 L Potassium Chloride 94.5 L Carbon Dioxide 19 L BUN 97 H Creatinine 2.6 H Glucose 110 H POC Glucose 125 H 123 H Lactic Acid Calcium 8.3 L Ionized Calcium Phosphorus Magnesium Direct Bilirubin AST ALT Alkaline Phosphatase Lactate Dehydrogenase Troponin T C-Reactive Protein Total Protein Albumin Prealbumin Triglycerides Cholesterol LDL Cholesterol Direct HDL Cholesterol 25-OH Vitamin D Total PTH Intact Urine pH Urine WBC (Auto) Urine Creatinine Urine Total Protein Fluid Total Protein Vancomycin Trough Rheumatoid Factor Complement C4 Miscellaneous Test Crossmatch 10/24/16 10/24/16 10/24/16 07:49 11:39 17:52 WBC RBC Hgb 6.0 L Hct 19.7 L* MCV MCH MCHC RDW Plt Count Lymph % (Auto) [place] % (Auto) Lymph # [place] # Baso # Seg Neutrophils % Seg Neuts % (Manual) Lymphocytes % (Manual) Monocytes % (Manual) Eosinophils % (Manual) Basophils % (Manual) Nucleated RBC % Seg Neutrophils # Seg Neutrophils # Man Lymphocytes # (Manual) Monocytes # (Manual) Eosinophils # (Manual) Basophils # (Manual) PT INR Fibrinogen dRVVT Confirm Interp Factor V Activity POC ABG pH POC ABG pCO2 POC ABG pO2 ABG pO2 ABG HCO3 ABG Base Excess ABG Hemoglobin Oxyhemoglobin Sodium Potassium Chloride Carbon Dioxide BUN Creatinine Glucose POC Glucose 106 H 158 H Lactic Acid Calcium Ionized Calcium Phosphorus Magnesium Direct Bilirubin AST ALT Alkaline Phosphatase Lactate Dehydrogenase Troponin T C-Reactive Protein Total Protein Albumin Prealbumin Triglycerides Cholesterol LDL Cholesterol Direct HDL Cholesterol 25-OH Vitamin D Total PTH Intact Urine pH Urine WBC (Auto) Urine Creatinine Urine Total Protein Fluid Total Protein Vancomycin Trough Rheumatoid Factor Complement C4 Miscellaneous Test Crossmatch 10/24/16 10/24/16 10/24/16 20:00 22:27 Unknown WBC RBC Hgb 9.4 L D Hct 27.5 L D MCV MCH MCHC RDW Plt Count Lymph % (Auto) [place] % (Auto) Lymph # [place] # Baso # Seg Neutrophils % Seg Neuts % (Manual) Lymphocytes % (Manual) Monocytes % (Manual) Eosinophils % (Manual) Basophils % (Manual) Nucleated RBC % Seg Neutrophils # Seg Neutrophils # Man Lymphocytes # (Manual) Monocytes # (Manual) Eosinophils # (Manual) Basophils # (Manual) PT INR Fibrinogen dRVVT Confirm Interp Factor V Activity POC ABG pH POC ABG pCO2 POC ABG pO2 ABG pO2 ABG HCO3 ABG Base Excess ABG Hemoglobin Oxyhemoglobin Sodium Potassium Chloride Carbon Dioxide BUN Creatinine Glucose POC Glucose 125 H Lactic Acid Calcium Ionized Calcium Phosphorus Magnesium Direct Bilirubin AST ALT Alkaline Phosphatase Lactate Dehydrogenase Troponin T C-Reactive Protein Total Protein Albumin Prealbumin Triglycerides Cholesterol LDL Cholesterol Direct HDL Cholesterol 25-OH Vitamin D Total PTH Intact Urine pH Urine WBC (Auto) Urine Creatinine Urine Total Protein Fluid Total Protein Vancomycin Trough Rheumatoid Factor Complement C4 Miscellaneous Test Crossmatch See Detail 10/25/16 10/25/16 10/25/16 04:00 04:00 04:00 WBC 14.2 H RBC 2.98 L Hgb 9.0 L Hct 26.2 L MCV MCH MCHC RDW 16.6 H Plt Count Lymph % (Auto) [place] % (Auto) 10.7 H Lymph # [place] # 1.5 H Baso # Seg Neutrophils % 73.6 H Seg Neuts % (Manual) Lymphocytes % (Manual) Monocytes % (Manual) Eosinophils % (Manual) Basophils % (Manual) Nucleated RBC % Seg Neutrophils # 10.5 H Seg Neutrophils # Man Lymphocytes # (Manual) Monocytes # (Manual) Eosinophils # (Manual) Basophils # (Manual) PT INR Fibrinogen dRVVT Confirm Interp Factor V Activity POC ABG pH POC ABG pCO2 POC ABG pO2 ABG pO2 ABG HCO3 ABG Base Excess ABG Hemoglobin Oxyhemoglobin Sodium 132 L Potassium Chloride 94.7 L Carbon Dioxide BUN 51 H Creatinine 1.6 H Glucose 130 H POC Glucose Lactic Acid Calcium 8.3 L Ionized Calcium Phosphorus 1.60 L D Magnesium Direct Bilirubin AST ALT Alkaline Phosphatase Lactate Dehydrogenase Troponin T C-Reactive Protein Total Protein Albumin Prealbumin Triglycerides Cholesterol LDL Cholesterol Direct HDL Cholesterol 25-OH Vitamin D Total PTH Intact Urine pH Urine WBC (Auto) Urine Creatinine Urine Total Protein Fluid Total Protein Vancomycin Trough Rheumatoid Factor Complement C4 Miscellaneous Test Crossmatch 10/25/16 10/25/16 10/25/16 04:32 11:48 17:22 WBC RBC Hgb Hct MCV MCH MCHC RDW Plt Count Lymph % (Auto) [place] % (Auto) Lymph # [place] # Baso # Seg Neutrophils % Seg Neuts % (Manual) Lymphocytes % (Manual) Monocytes % (Manual) Eosinophils % (Manual) Basophils % (Manual) Nucleated RBC % Seg Neutrophils # Seg Neutrophils # Man Lymphocytes # (Manual) Monocytes # (Manual) Eosinophils # (Manual) Basophils # (Manual) PT INR Fibrinogen dRVVT Confirm Interp Factor V Activity POC ABG pH POC ABG pCO2 POC ABG pO2 ABG pO2 ABG HCO3 ABG Base Excess ABG Hemoglobin Oxyhemoglobin Sodium Potassium Chloride Carbon Dioxide BUN Creatinine Glucose POC Glucose 124 H 171 H 120 H Lactic Acid Calcium Ionized Calcium Phosphorus Magnesium Direct Bilirubin AST ALT Alkaline Phosphatase Lactate Dehydrogenase Troponin T C-Reactive Protein Total Protein Albumin Prealbumin Triglycerides Cholesterol LDL Cholesterol Direct HDL Cholesterol 25-OH Vitamin D Total PTH Intact Urine pH Urine WBC (Auto) Urine Creatinine Urine Total Protein Fluid Total Protein Vancomycin Trough Rheumatoid Factor Complement C4 Miscellaneous Test Crossmatch 10/26/16 10/26/16 10/26/16 04:54 07:06 07:06 WBC 16.9 H RBC 3.06 L Hgb 9.1 L Hct 26.9 L MCV MCH MCHC RDW 16.9 H Plt Count Lymph % (Auto) [place] % (Auto) Lymph # [place] # Baso # Seg Neutrophils % Seg Neuts % (Manual) 71.0 H Lymphocytes % (Manual) 5.0 L Monocytes % (Manual) 12.0 H Eosinophils % (Manual) Basophils % (Manual) Nucleated RBC % Seg Neutrophils # Seg Neutrophils # Man 12.0 H Lymphocytes # (Manual) 0.8 L Monocytes # (Manual) 2.0 H Eosinophils # (Manual) Basophils # (Manual) PT INR Fibrinogen dRVVT Confirm Interp Factor V Activity POC ABG pH POC ABG pCO2 POC ABG pO2 ABG pO2 ABG HCO3 ABG Base Excess ABG Hemoglobin Oxyhemoglobin Sodium 135 L Potassium Chloride 97.1 L Carbon Dioxide BUN 73 H Creatinine 2.2 H Glucose 117 H POC Glucose 123 H Lactic Acid Calcium Ionized Calcium Phosphorus 1.70 L Magnesium Direct Bilirubin AST ALT Alkaline Phosphatase Lactate Dehydrogenase Troponin T C-Reactive Protein Total Protein Albumin Prealbumin Triglycerides Cholesterol LDL Cholesterol Direct HDL Cholesterol 25-OH Vitamin D Total PTH Intact Urine pH Urine WBC (Auto) Urine Creatinine Urine Total Protein Fluid Total Protein Vancomycin Trough Rheumatoid Factor Complement C4 Miscellaneous Test Crossmatch 10/26/16 10/26/16 10/26/16 12:12 17:29 23:42 WBC RBC Hgb Hct MCV MCH MCHC RDW Plt Count Lymph % (Auto) [place] % (Auto) Lymph # [place] # Baso # Seg Neutrophils % Seg Neuts % (Manual) Lymphocytes % (Manual) Monocytes % (Manual) Eosinophils % (Manual) Basophils % (Manual) Nucleated RBC % Seg Neutrophils # Seg Neutrophils # Man Lymphocytes # (Manual) Monocytes # (Manual) Eosinophils # (Manual) Basophils # (Manual) PT INR Fibrinogen dRVVT Confirm Interp Factor V Activity POC ABG pH POC ABG pCO2 POC ABG pO2 ABG pO2 ABG HCO3 ABG Base Excess ABG Hemoglobin Oxyhemoglobin Sodium Potassium Chloride Carbon Dioxide BUN Creatinine Glucose POC Glucose 126 H 161 H 118 H Lactic Acid Calcium Ionized Calcium Phosphorus Magnesium Direct Bilirubin AST ALT Alkaline Phosphatase Lactate Dehydrogenase Troponin T C-Reactive Protein Total Protein Albumin Prealbumin Triglycerides Cholesterol LDL Cholesterol Direct HDL Cholesterol 25-OH Vitamin D Total PTH Intact Urine pH Urine WBC (Auto) Urine Creatinine Urine Total Protein Fluid Total Protein Vancomycin Trough Rheumatoid Factor Complement C4 Miscellaneous Test Crossmatch 10/27/16 10/27/16 10/27/16 05:03 06:30 06:30 WBC 13.9 H RBC 3.09 L Hgb 9.2 L Hct 27.5 L MCV MCH MCHC RDW 17.0 H Plt Count Lymph % (Auto) [place] % (Auto) Lymph # [place] # Baso # Seg Neutrophils % Seg Neuts % (Manual) 78.0 H Lymphocytes % (Manual) Monocytes % (Manual) Eosinophils % (Manual) Basophils % (Manual) Nucleated RBC % 2.0 H Seg Neutrophils # Seg Neutrophils # Man 10.8 H Lymphocytes # (Manual) Monocytes # (Manual) 1.0 H Eosinophils # (Manual) Basophils # (Manual) PT INR Fibrinogen dRVVT Confirm Interp Factor V Activity POC ABG pH POC ABG pCO2 POC ABG pO2 ABG pO2 ABG HCO3 ABG Base Excess ABG Hemoglobin Oxyhemoglobin Sodium Potassium Chloride Carbon Dioxide BUN 40 H Creatinine 1.5 H Glucose 135 H POC Glucose 107 H Lactic Acid Calcium 8.3 L Ionized Calcium Phosphorus 1.30 L D Magnesium Direct Bilirubin AST ALT Alkaline Phosphatase Lactate Dehydrogenase Troponin T C-Reactive Protein Total Protein Albumin Prealbumin Triglycerides Cholesterol LDL Cholesterol Direct HDL Cholesterol 25-OH Vitamin D Total PTH Intact Urine pH Urine WBC (Auto) Urine Creatinine Urine Total Protein Fluid Total Protein Vancomycin Trough Rheumatoid Factor Complement C4 Miscellaneous Test Crossmatch 10/27/16 10/27/16 10/27/16 13:27 18:07 23:40 WBC RBC Hgb Hct MCV MCH MCHC RDW Plt Count Lymph % (Auto) [place] % (Auto) Lymph # [place] # Baso # Seg Neutrophils % Seg Neuts % (Manual) Lymphocytes % (Manual) Monocytes % (Manual) Eosinophils % (Manual) Basophils % (Manual) Nucleated RBC % Seg Neutrophils # Seg Neutrophils # Man Lymphocytes # (Manual) Monocytes # (Manual) Eosinophils # (Manual) Basophils # (Manual) PT INR Fibrinogen dRVVT Confirm Interp Factor V Activity POC ABG pH POC ABG pCO2 POC ABG pO2 ABG pO2 ABG HCO3 ABG Base Excess ABG Hemoglobin Oxyhemoglobin Sodium Potassium Chloride Carbon Dioxide BUN Creatinine Glucose POC Glucose 117 H 121 H 118 H Lactic Acid Calcium Ionized Calcium Phosphorus Magnesium Direct Bilirubin AST ALT Alkaline Phosphatase Lactate Dehydrogenase Troponin T C-Reactive Protein Total Protein Albumin Prealbumin Triglycerides Cholesterol LDL Cholesterol Direct HDL Cholesterol 25-OH Vitamin D Total PTH Intact Urine pH Urine WBC (Auto) Urine Creatinine Urine Total Protein Fluid Total Protein Vancomycin Trough Rheumatoid Factor Complement C4 Miscellaneous Test Crossmatch 10/28/16 10/28/16 10/28/16 05:48 06:45 06:45 WBC 14.7 H RBC 3.05 L Hgb 9.0 L Hct 26.9 L MCV MCH MCHC RDW 16.8 H Plt Count Lymph % (Auto) 8.2 L [place] % (Auto) 8.4 H Lymph # [place] # 1.2 H Baso # Seg Neutrophils % 81.9 H Seg Neuts % (Manual) Lymphocytes % (Manual) Monocytes % (Manual) Eosinophils % (Manual) Basophils % (Manual) Nucleated RBC % Seg Neutrophils # 12.1 H Seg Neutrophils # Man Lymphocytes # (Manual) Monocytes # (Manual) Eosinophils # (Manual) Basophils # (Manual) PT INR Fibrinogen dRVVT Confirm Interp Factor V Activity POC ABG pH POC ABG pCO2 POC ABG pO2 ABG pO2 ABG HCO3 ABG Base Excess ABG Hemoglobin Oxyhemoglobin Sodium Potassium Chloride Carbon Dioxide BUN 60 H Creatinine 1.9 H Glucose 120 H POC Glucose 114 H Lactic Acid Calcium Ionized Calcium Phosphorus Magnesium Direct Bilirubin AST ALT Alkaline Phosphatase Lactate Dehydrogenase Troponin T C-Reactive Protein Total Protein Albumin Prealbumin Triglycerides Cholesterol LDL Cholesterol Direct HDL Cholesterol 25-OH Vitamin D Total PTH Intact Urine pH Urine WBC (Auto) Urine Creatinine Urine Total Protein Fluid Total Protein Vancomycin Trough Rheumatoid Factor Complement C4 Miscellaneous Test Crossmatch 10/28/16 10/28/16 10/29/16 17:08 23:50 05:10 WBC RBC Hgb Hct MCV MCH MCHC RDW Plt Count Lymph % (Auto) [place] % (Auto) Lymph # [place] # Baso # Seg Neutrophils % Seg Neuts % (Manual) Lymphocytes % (Manual) Monocytes % (Manual) Eosinophils % (Manual) Basophils % (Manual) Nucleated RBC % Seg Neutrophils # Seg Neutrophils # Man Lymphocytes # (Manual) Monocytes # (Manual) Eosinophils # (Manual) Basophils # (Manual) PT INR Fibrinogen dRVVT Confirm Interp Factor V Activity POC ABG pH POC ABG pCO2 POC ABG pO2 ABG pO2 ABG HCO3 ABG Base Excess ABG Hemoglobin Oxyhemoglobin Sodium Potassium Chloride Carbon Dioxide BUN Creatinine Glucose POC Glucose 109 H 110 H 124 H Lactic Acid Calcium Ionized Calcium Phosphorus Magnesium Direct Bilirubin AST ALT Alkaline Phosphatase Lactate Dehydrogenase Troponin T C-Reactive Protein Total Protein Albumin Prealbumin Triglycerides Cholesterol LDL Cholesterol Direct HDL Cholesterol 25-OH Vitamin D Total PTH Intact Urine pH Urine WBC (Auto) Urine Creatinine Urine Total Protein Fluid Total Protein Vancomycin Trough Rheumatoid Factor Complement C4 Miscellaneous Test Crossmatch 10/29/16 10/29/16 10/29/16 07:45 07:45 12:19 WBC 14.7 H RBC 3.15 L Hgb 9.3 L Hct 28.9 L MCV MCH MCHC RDW 17.0 H Plt Count Lymph % (Auto) 11.9 L [place] % (Auto) 8.6 H Lymph # [place] # 1.3 H Baso # Seg Neutrophils % 78.1 H Seg Neuts % (Manual) Lymphocytes % (Manual) Monocytes % (Manual) Eosinophils % (Manual) Basophils % (Manual) Nucleated RBC % Seg Neutrophils # 11.4 H Seg Neutrophils # Man Lymphocytes # (Manual) Monocytes # (Manual) Eosinophils # (Manual) Basophils # (Manual) PT INR Fibrinogen dRVVT Confirm Interp Factor V Activity POC ABG pH POC ABG pCO2 POC ABG pO2 ABG pO2 ABG HCO3 ABG Base Excess ABG Hemoglobin Oxyhemoglobin Sodium Potassium 5.1 H Chloride Carbon Dioxide 19 L BUN 78 H Creatinine 2.2 H Glucose 116 H POC Glucose 118 H Lactic Acid Calcium Ionized Calcium Phosphorus Magnesium Direct Bilirubin AST ALT Alkaline Phosphatase Lactate Dehydrogenase Troponin T C-Reactive Protein Total Protein Albumin Prealbumin Triglycerides Cholesterol LDL Cholesterol Direct HDL Cholesterol 25-OH Vitamin D Total PTH Intact Urine pH Urine WBC (Auto) Urine Creatinine Urine Total Protein Fluid Total Protein Vancomycin Trough Rheumatoid Factor Complement C4 Miscellaneous Test Crossmatch 10/29/16 10/30/16 10/30/16 17:49 01:52 03:28 WBC RBC Hgb Hct MCV MCH MCHC RDW Plt Count Lymph % (Auto) [place] % (Auto) Lymph # [place] # Baso # Seg Neutrophils % Seg Neuts % (Manual) Lymphocytes % (Manual) Monocytes % (Manual) Eosinophils % (Manual) Basophils % (Manual) Nucleated RBC % Seg Neutrophils # Seg Neutrophils # Man Lymphocytes # (Manual) Monocytes # (Manual) Eosinophils # (Manual) Basophils # (Manual) PT INR Fibrinogen dRVVT Confirm Interp Factor V Activity POC ABG pH POC ABG pCO2 POC ABG pO2 ABG pO2 ABG HCO3 ABG Base Excess ABG Hemoglobin Oxyhemoglobin Sodium Potassium 5.4 H Chloride 97.5 L Carbon Dioxide 19 L BUN 90 H Creatinine 2.5 H Glucose POC Glucose 120 H 129 H Lactic Acid Calcium Ionized Calcium Phosphorus 5.20 H Magnesium Direct Bilirubin AST ALT Alkaline Phosphatase Lactate Dehydrogenase Troponin T C-Reactive Protein Total Protein Albumin Prealbumin Triglycerides Cholesterol LDL Cholesterol Direct HDL Cholesterol 25-OH Vitamin D Total PTH Intact Urine pH Urine WBC (Auto) Urine Creatinine Urine Total Protein Fluid Total Protein Vancomycin Trough Rheumatoid Factor Complement C4 Miscellaneous Test Crossmatch 10/30/16 10/30/16 10/30/16 03:28 08:19 08:19 WBC 11.6 H 15.9 H RBC 2.75 L 2.82 L Hgb 7.9 L 8.3 L Hct 24.2 L 25.2 L MCV MCH MCHC RDW 16.7 H 17.2 H Plt Count Lymph % (Auto) [place] % (Auto) 9.8 H Lymph # [place] # 1.1 H Baso # Seg Neutrophils % 74.2 H Seg Neuts % (Manual) Lymphocytes % (Manual) Monocytes % (Manual) Eosinophils % (Manual) Basophils % (Manual) Nucleated RBC % Seg Neutrophils # 8.6 H Seg Neutrophils # Man Lymphocytes # (Manual) Monocytes # (Manual) Eosinophils # (Manual) Basophils # (Manual) PT INR Fibrinogen dRVVT Confirm Interp Factor V Activity POC ABG pH POC ABG pCO2 POC ABG pO2 ABG pO2 ABG HCO3 ABG Base Excess ABG Hemoglobin Oxyhemoglobin Sodium Potassium 5.3 H Chloride 97.4 L Carbon Dioxide 19 L BUN 93 H Creatinine 2.6 H Glucose POC Glucose Lactic Acid Calcium Ionized Calcium Phosphorus Magnesium Direct Bilirubin AST ALT Alkaline Phosphatase Lactate Dehydrogenase Troponin T C-Reactive Protein Total Protein Albumin Prealbumin Triglycerides Cholesterol LDL Cholesterol Direct HDL Cholesterol 25-OH Vitamin D Total PTH Intact Urine pH Urine WBC (Auto) Urine Creatinine Urine Total Protein Fluid Total Protein Vancomycin Trough Rheumatoid Factor Complement C4 Miscellaneous Test Crossmatch 10/30/16 10/30/16 10/31/16 17:11 23:56 00:40 WBC RBC Hgb Hct MCV MCH MCHC RDW Plt Count Lymph % (Auto) [place] % (Auto) Lymph # [place] # Baso # Seg Neutrophils % Seg Neuts % (Manual) Lymphocytes % (Manual) Monocytes % (Manual) Eosinophils % (Manual) Basophils % (Manual) Nucleated RBC % Seg Neutrophils # Seg Neutrophils # Man Lymphocytes # (Manual) Monocytes # (Manual) Eosinophils # (Manual) Basophils # (Manual) PT INR Fibrinogen dRVVT Confirm Interp Factor V Activity POC ABG pH POC ABG pCO2 POC ABG pO2 ABG pO2 ABG HCO3 ABG Base Excess ABG Hemoglobin Oxyhemoglobin Sodium Potassium Chloride Carbon Dioxide BUN Creatinine Glucose POC Glucose 106 H 117 H 120 H Lactic Acid Calcium Ionized Calcium Phosphorus Magnesium Direct Bilirubin AST ALT Alkaline Phosphatase Lactate Dehydrogenase Troponin T C-Reactive Protein Total Protein Albumin Prealbumin Triglycerides Cholesterol LDL Cholesterol Direct HDL Cholesterol 25-OH Vitamin D Total PTH Intact Urine pH Urine WBC (Auto) Urine Creatinine Urine Total Protein Fluid Total Protein Vancomycin Trough Rheumatoid Factor Complement C4 Miscellaneous Test Crossmatch 10/31/16 10/31/16 10/31/16 05:43 07:15 07:15 WBC 12.1 H RBC 2.63 L Hgb 7.7 L Hct 23.3 L MCV MCH MCHC RDW 16.7 H Plt Count Lymph % (Auto) 11.7 L [place] % (Auto) 7.7 H Lymph # [place] # 0.9 H Baso # Seg Neutrophils % 78.0 H Seg Neuts % (Manual) Lymphocytes % (Manual) Monocytes % (Manual) Eosinophils % (Manual) Basophils % (Manual) Nucleated RBC % Seg Neutrophils # 9.4 H Seg Neutrophils # Man Lymphocytes # (Manual) Monocytes # (Manual) Eosinophils # (Manual) Basophils # (Manual) PT INR Fibrinogen dRVVT Confirm Interp Factor V Activity POC ABG pH POC ABG pCO2 POC ABG pO2 ABG pO2 ABG HCO3 ABG Base Excess ABG Hemoglobin Oxyhemoglobin Sodium Potassium Chloride 96.4 L Carbon Dioxide 21 L BUN 99 H Creatinine 2.6 H Glucose 144 H POC Glucose 125 H Lactic Acid Calcium Ionized Calcium Phosphorus 4.80 H Magnesium Direct Bilirubin AST ALT Alkaline Phosphatase Lactate Dehydrogenase Troponin T C-Reactive Protein Total Protein Albumin Prealbumin Triglycerides Cholesterol LDL Cholesterol Direct HDL Cholesterol 25-OH Vitamin D Total PTH Intact Urine pH Urine WBC (Auto) Urine Creatinine Urine Total Protein Fluid Total Protein Vancomycin Trough Rheumatoid Factor Complement C4 Miscellaneous Test Crossmatch 10/31/16 10/31/16 11/01/16 11:46 18:34 00:20 WBC RBC Hgb Hct MCV MCH MCHC RDW Plt Count Lymph % (Auto) [place] % (Auto) Lymph # [place] # Baso # Seg Neutrophils % Seg Neuts % (Manual) Lymphocytes % (Manual) Monocytes % (Manual) Eosinophils % (Manual) Basophils % (Manual) Nucleated RBC % Seg Neutrophils # Seg Neutrophils # Man Lymphocytes # (Manual) Monocytes # (Manual) Eosinophils # (Manual) Basophils # (Manual) PT INR Fibrinogen dRVVT Confirm Interp Factor V Activity POC ABG pH POC ABG pCO2 POC ABG pO2 ABG pO2 ABG HCO3 ABG Base Excess ABG Hemoglobin Oxyhemoglobin Sodium Potassium Chloride Carbon Dioxide BUN Creatinine Glucose POC Glucose 159 H 140 H 132 H Lactic Acid Calcium Ionized Calcium Phosphorus Magnesium Direct Bilirubin AST ALT Alkaline Phosphatase Lactate Dehydrogenase Troponin T C-Reactive Protein Total Protein Albumin Prealbumin Triglycerides Cholesterol LDL Cholesterol Direct HDL Cholesterol 25-OH Vitamin D Total PTH Intact Urine pH Urine WBC (Auto) Urine Creatinine Urine Total Protein Fluid Total Protein Vancomycin Trough Rheumatoid Factor Complement C4 Miscellaneous Test Crossmatch 11/01/16 11/01/16 11/01/16 04:55 04:55 06:11 WBC 11.2 H RBC 2.68 L Hgb 7.5 L Hct 23.7 L MCV MCH MCHC RDW 16.1 H Plt Count Lymph % (Auto) [place] % (Auto) 9.8 H Lymph # [place] # 1.1 H Baso # Seg Neutrophils % 70.8 H Seg Neuts % (Manual) Lymphocytes % (Manual) Monocytes % (Manual) Eosinophils % (Manual) Basophils % (Manual) Nucleated RBC % Seg Neutrophils # 7.9 H Seg Neutrophils # Man Lymphocytes # (Manual) Monocytes # (Manual) Eosinophils # (Manual) Basophils # (Manual) PT INR Fibrinogen dRVVT Confirm Interp Factor V Activity POC ABG pH POC ABG pCO2 POC ABG pO2 ABG pO2 ABG HCO3 ABG Base Excess ABG Hemoglobin Oxyhemoglobin Sodium Potassium 3.3 L D Chloride Carbon Dioxide BUN 61 H Creatinine 1.9 H Glucose 114 H POC Glucose 115 H Lactic Acid Calcium Ionized Calcium Phosphorus 1.80 L D Magnesium Direct Bilirubin AST ALT Alkaline Phosphatase Lactate Dehydrogenase Troponin T C-Reactive Protein Total Protein Albumin Prealbumin Triglycerides Cholesterol LDL Cholesterol Direct HDL Cholesterol 25-OH Vitamin D Total PTH Intact Urine pH Urine WBC (Auto) Urine Creatinine Urine Total Protein Fluid Total Protein Vancomycin Trough Rheumatoid Factor Complement C4 Miscellaneous Test Crossmatch 11/01/16 11/01/16 11/01/16 12:29 18:23 23:58 WBC RBC Hgb Hct MCV MCH MCHC RDW Plt Count Lymph % (Auto) [place] % (Auto) Lymph # [place] # Baso # Seg Neutrophils % Seg Neuts % (Manual) Lymphocytes % (Manual) Monocytes % (Manual) Eosinophils % (Manual) Basophils % (Manual) Nucleated RBC % Seg Neutrophils # Seg Neutrophils # Man Lymphocytes # (Manual) Monocytes # (Manual) Eosinophils # (Manual) Basophils # (Manual) PT INR Fibrinogen dRVVT Confirm Interp Factor V Activity POC ABG pH POC ABG pCO2 POC ABG pO2 ABG pO2 ABG HCO3 ABG Base Excess ABG Hemoglobin Oxyhemoglobin Sodium Potassium Chloride Carbon Dioxide BUN Creatinine Glucose POC Glucose 142 H 143 H 128 H Lactic Acid Calcium Ionized Calcium Phosphorus Magnesium Direct Bilirubin AST ALT Alkaline Phosphatase Lactate Dehydrogenase Troponin T C-Reactive Protein Total Protein Albumin Prealbumin Triglycerides Cholesterol LDL Cholesterol Direct HDL Cholesterol 25-OH Vitamin D Total PTH Intact Urine pH Urine WBC (Auto) Urine Creatinine Urine Total Protein Fluid Total Protein Vancomycin Trough Rheumatoid Factor Complement C4 Miscellaneous Test Crossmatch 11/02/16 11/02/16 11/02/16 04:16 05:29 11:58 WBC RBC Hgb Hct MCV MCH MCHC RDW Plt Count Lymph % (Auto) [place] % (Auto) Lymph # [place] # Baso # Seg Neutrophils % Seg Neuts % (Manual) Lymphocytes % (Manual) Monocytes % (Manual) Eosinophils % (Manual) Basophils % (Manual) Nucleated RBC % Seg Neutrophils # Seg Neutrophils # Man Lymphocytes # (Manual) Monocytes # (Manual) Eosinophils # (Manual) Basophils # (Manual) PT INR Fibrinogen dRVVT Confirm Interp Factor V Activity POC ABG pH POC ABG pCO2 POC ABG pO2 ABG pO2 ABG HCO3 ABG Base Excess ABG Hemoglobin Oxyhemoglobin Sodium Potassium 3.1 L Chloride Carbon Dioxide BUN 73 H Creatinine 2.3 H Glucose 112 H POC Glucose 135 H 149 H Lactic Acid Calcium Ionized Calcium Phosphorus Magnesium Direct Bilirubin AST ALT Alkaline Phosphatase Lactate Dehydrogenase Troponin T C-Reactive Protein Total Protein Albumin Prealbumin Triglycerides Cholesterol LDL Cholesterol Direct HDL Cholesterol 25-OH Vitamin D Total PTH Intact Urine pH Urine WBC (Auto) Urine Creatinine Urine Total Protein Fluid Total Protein Vancomycin Trough Rheumatoid Factor Complement C4 Miscellaneous Test Crossmatch 11/02/16 11/02/16 11/03/16 17:42 22:54 06:00 WBC RBC Hgb Hct MCV MCH MCHC RDW Plt Count Lymph % (Auto) [place] % (Auto) Lymph # [place] # Baso # Seg Neutrophils % Seg Neuts % (Manual) Lymphocytes % (Manual) Monocytes % (Manual) Eosinophils % (Manual) Basophils % (Manual) Nucleated RBC % Seg Neutrophils # Seg Neutrophils # Man Lymphocytes # (Manual) Monocytes # (Manual) Eosinophils # (Manual) Basophils # (Manual) PT INR Fibrinogen dRVVT Confirm Interp Factor V Activity POC ABG pH POC ABG pCO2 POC ABG pO2 ABG pO2 ABG HCO3 ABG Base Excess ABG Hemoglobin Oxyhemoglobin Sodium Potassium Chloride 96.7 L Carbon Dioxide BUN 41 H Creatinine 1.5 H Glucose 145 H POC Glucose 182 H 115 H Lactic Acid Calcium Ionized Calcium Phosphorus 1.60 L D Magnesium 1.50 L Direct Bilirubin AST ALT Alkaline Phosphatase Lactate Dehydrogenase Troponin T C-Reactive Protein Total Protein Albumin Prealbumin Triglycerides Cholesterol LDL Cholesterol Direct HDL Cholesterol 25-OH Vitamin D Total PTH Intact Urine pH Urine WBC (Auto) Urine Creatinine Urine Total Protein Fluid Total Protein Vancomycin Trough Rheumatoid Factor Complement C4 Miscellaneous Test Crossmatch 11/03/16 11/03/16 11/03/16 11:53 17:45 23:37 WBC RBC Hgb Hct MCV MCH MCHC RDW Plt Count Lymph % (Auto) [place] % (Auto) Lymph # [place] # Baso # Seg Neutrophils % Seg Neuts % (Manual) Lymphocytes % (Manual) Monocytes % (Manual) Eosinophils % (Manual) Basophils % (Manual) Nucleated RBC % Seg Neutrophils # Seg Neutrophils # Man Lymphocytes # (Manual) Monocytes # (Manual) Eosinophils # (Manual) Basophils # (Manual) PT INR Fibrinogen dRVVT Confirm Interp Factor V Activity POC ABG pH POC ABG pCO2 POC ABG pO2 ABG pO2 ABG HCO3 ABG Base Excess ABG Hemoglobin Oxyhemoglobin Sodium Potassium Chloride Carbon Dioxide BUN Creatinine Glucose POC Glucose 131 H 134 H 113 H Lactic Acid Calcium Ionized Calcium Phosphorus Magnesium Direct Bilirubin AST ALT Alkaline Phosphatase Lactate Dehydrogenase Troponin T C-Reactive Protein Total Protein Albumin Prealbumin Triglycerides Cholesterol LDL Cholesterol Direct HDL Cholesterol 25-OH Vitamin D Total PTH Intact Urine pH Urine WBC (Auto) Urine Creatinine Urine Total Protein Fluid Total Protein Vancomycin Trough Rheumatoid Factor Complement C4 Miscellaneous Test Crossmatch 11/04/16 11/04/16 11/04/16 05:41 06:00 12:10 WBC RBC Hgb Hct MCV MCH MCHC RDW Plt Count Lymph % (Auto) [place] % (Auto) Lymph # [place] # Baso # Seg Neutrophils % Seg Neuts % (Manual) Lymphocytes % (Manual) Monocytes % (Manual) Eosinophils % (Manual) Basophils % (Manual) Nucleated RBC % Seg Neutrophils # Seg Neutrophils # Man Lymphocytes # (Manual) Monocytes # (Manual) Eosinophils # (Manual) Basophils # (Manual) PT INR Fibrinogen dRVVT Confirm Interp Factor V Activity POC ABG pH POC ABG pCO2 POC ABG pO2 ABG pO2 ABG HCO3 ABG Base Excess ABG Hemoglobin Oxyhemoglobin Sodium Potassium Chloride 96.7 L Carbon Dioxide BUN 52 H Creatinine 1.9 H Glucose 126 H POC Glucose 137 H 191 H Lactic Acid Calcium Ionized Calcium Phosphorus Magnesium Direct Bilirubin AST ALT Alkaline Phosphatase Lactate Dehydrogenase Troponin T C-Reactive Protein Total Protein Albumin Prealbumin Triglycerides Cholesterol LDL Cholesterol Direct HDL Cholesterol 25-OH Vitamin D Total PTH Intact Urine pH Urine WBC (Auto) Urine Creatinine Urine Total Protein Fluid Total Protein Vancomycin Trough Rheumatoid Factor Complement C4 Miscellaneous Test Crossmatch 11/04/16 11/05/16 11/05/16 22:57 03:10 05:10 WBC RBC Hgb Hct MCV MCH MCHC RDW Plt Count Lymph % (Auto) [place] % (Auto) Lymph # [place] # Baso # Seg Neutrophils % Seg Neuts % (Manual) Lymphocytes % (Manual) Monocytes % (Manual) Eosinophils % (Manual) Basophils % (Manual) Nucleated RBC % Seg Neutrophils # Seg Neutrophils # Man Lymphocytes # (Manual) Monocytes # (Manual) Eosinophils # (Manual) Basophils # (Manual) PT INR Fibrinogen dRVVT Confirm Interp Factor V Activity POC ABG pH POC ABG pCO2 POC ABG pO2 ABG pO2 ABG HCO3 ABG Base Excess ABG Hemoglobin Oxyhemoglobin Sodium 136 L Potassium Chloride 97.2 L Carbon Dioxide BUN 32 H Creatinine 1.3 H Glucose 123 H POC Glucose 125 H 108 H Lactic Acid Calcium 7.8 L Ionized Calcium Phosphorus Magnesium Direct Bilirubin AST ALT Alkaline Phosphatase Lactate Dehydrogenase Troponin T C-Reactive Protein Total Protein Albumin Prealbumin Triglycerides Cholesterol LDL Cholesterol Direct HDL Cholesterol 25-OH Vitamin D Total PTH Intact Urine pH Urine WBC (Auto) Urine Creatinine Urine Total Protein Fluid Total Protein Vancomycin Trough Rheumatoid Factor Complement C4 Miscellaneous Test Crossmatch 11/05/16 11/05/16 11/05/16 12:23 13:09 13:25 WBC RBC Hgb Hct MCV MCH MCHC RDW Plt Count Lymph % (Auto) [place] % (Auto) Lymph # [place] # Baso # Seg Neutrophils % Seg Neuts % (Manual) Lymphocytes % (Manual) Monocytes % (Manual) Eosinophils % (Manual) Basophils % (Manual) Nucleated RBC % Seg Neutrophils # Seg Neutrophils # Man Lymphocytes # (Manual) Monocytes # (Manual) Eosinophils # (Manual) Basophils # (Manual) PT INR Fibrinogen dRVVT Confirm Interp Factor V Activity POC ABG pH POC ABG pCO2 POC ABG pO2 ABG pO2 ABG HCO3 ABG Base Excess ABG Hemoglobin Oxyhemoglobin Sodium Potassium Chloride Carbon Dioxide BUN Creatinine Glucose POC Glucose 124 H Lactic Acid Calcium Ionized Calcium Phosphorus Magnesium Direct Bilirubin AST ALT Alkaline Phosphatase Lactate Dehydrogenase Troponin T C-Reactive Protein 11.40 H Total Protein Albumin Prealbumin Triglycerides Cholesterol LDL Cholesterol Direct HDL Cholesterol 25-OH Vitamin D Total PTH Intact Urine pH 9.0 H Urine WBC (Auto) Urine Creatinine Urine Total Protein Fluid Total Protein Vancomycin Trough Rheumatoid Factor Complement C4 Miscellaneous Test Crossmatch 11/05/16 11/05/16 11/05/16 13:25 17:54 23:42 WBC RBC Hgb Hct MCV MCH MCHC RDW Plt Count Lymph % (Auto) [place] % (Auto) Lymph # [place] # Baso # Seg Neutrophils % Seg Neuts % (Manual) Lymphocytes % (Manual) Monocytes % (Manual) Eosinophils % (Manual) Basophils % (Manual) Nucleated RBC % Seg Neutrophils # Seg Neutrophils # Man Lymphocytes # (Manual) Monocytes # (Manual) Eosinophils # (Manual) Basophils # (Manual) PT INR Fibrinogen dRVVT Confirm Interp Factor V Activity POC ABG pH POC ABG pCO2 POC ABG pO2 ABG pO2 ABG HCO3 ABG Base Excess ABG Hemoglobin Oxyhemoglobin Sodium Potassium Chloride Carbon Dioxide BUN Creatinine Glucose POC Glucose 114 H 134 H Lactic Acid Calcium Ionized Calcium Phosphorus Magnesium Direct Bilirubin AST ALT Alkaline Phosphatase Lactate Dehydrogenase Troponin T C-Reactive Protein Total Protein Albumin Prealbumin Triglycerides Cholesterol LDL Cholesterol Direct HDL Cholesterol 25-OH Vitamin D Total PTH Intact Urine pH Urine WBC (Auto) Urine Creatinine Urine Total Protein Fluid Total Protein Vancomycin Trough Rheumatoid Factor Complement C4 Miscellaneous Test Flexitest 1 H Crossmatch 11/06/16 11/06/16 11/06/16 04:56 06:25 06:25 WBC RBC 2.50 L Hgb 7.3 L Hct 22.5 L MCV MCH MCHC RDW 16.9 H Plt Count Lymph % (Auto) [place] % (Auto) 10.5 H Lymph # [place] # 1.1 H Baso # Seg Neutrophils % Seg Neuts % (Manual) Lymphocytes % (Manual) Monocytes % (Manual) Eosinophils % (Manual) Basophils % (Manual) Nucleated RBC % Seg Neutrophils # Seg Neutrophils # Man Lymphocytes # (Manual) Monocytes # (Manual) Eosinophils # (Manual) Basophils # (Manual) PT INR Fibrinogen dRVVT Confirm Interp Factor V Activity POC ABG pH POC ABG pCO2 POC ABG pO2 ABG pO2 ABG HCO3 ABG Base Excess ABG Hemoglobin Oxyhemoglobin Sodium Potassium 5.1 H Chloride 95.9 L Carbon Dioxide BUN 52 H Creatinine 1.8 H Glucose 117 H POC Glucose 120 H Lactic Acid Calcium Ionized Calcium Phosphorus Magnesium Direct Bilirubin AST 103 H ALT 77 H Alkaline Phosphatase 285 H Lactate Dehydrogenase Troponin T C-Reactive Protein Total Protein 6.2 L Albumin 1.8 L Prealbumin 0.180 L Triglycerides Cholesterol LDL Cholesterol Direct HDL Cholesterol 25-OH Vitamin D Total PTH Intact Urine pH Urine WBC (Auto) Urine Creatinine Urine Total Protein Fluid Total Protein Vancomycin Trough Rheumatoid Factor Complement C4 Miscellaneous Test Crossmatch 11/06/16 11/06/16 11/06/16 11:56 17:14 23:52 WBC RBC Hgb Hct MCV MCH MCHC RDW Plt Count Lymph % (Auto) [place] % (Auto) Lymph # [place] # Baso # Seg Neutrophils % Seg Neuts % (Manual) Lymphocytes % (Manual) Monocytes % (Manual) Eosinophils % (Manual) Basophils % (Manual) Nucleated RBC % Seg Neutrophils # Seg Neutrophils # Man Lymphocytes # (Manual) Monocytes # (Manual) Eosinophils # (Manual) Basophils # (Manual) PT INR Fibrinogen dRVVT Confirm Interp Factor V Activity POC ABG pH POC ABG pCO2 POC ABG pO2 ABG pO2 ABG HCO3 ABG Base Excess ABG Hemoglobin Oxyhemoglobin Sodium Potassium Chloride Carbon Dioxide BUN Creatinine Glucose POC Glucose 141 H 125 H 130 H Lactic Acid Calcium Ionized Calcium Phosphorus Magnesium Direct Bilirubin AST ALT Alkaline Phosphatase Lactate Dehydrogenase Troponin T C-Reactive Protein Total Protein Albumin Prealbumin Triglycerides Cholesterol LDL Cholesterol Direct HDL Cholesterol 25-OH Vitamin D Total PTH Intact Urine pH Urine WBC (Auto) Urine Creatinine Urine Total Protein Fluid Total Protein Vancomycin Trough Rheumatoid Factor Complement C4 Miscellaneous Test Crossmatch 11/07/16 11/07/16 11/07/16 06:30 06:30 09:37 WBC RBC 2.18 L Hgb 6.3 L Hct 19.7 L* MCV MCH MCHC RDW 16.8 H Plt Count Lymph % (Auto) [place] % (Auto) 10.0 H Lymph # [place] # 1.0 H Baso # Seg Neutrophils % Seg Neuts % (Manual) Lymphocytes % (Manual) Monocytes % (Manual) Eosinophils % (Manual) Basophils % (Manual) Nucleated RBC % Seg Neutrophils # Seg Neutrophils # Man Lymphocytes # (Manual) Monocytes # (Manual) Eosinophils # (Manual) Basophils # (Manual) PT INR Fibrinogen dRVVT Confirm Interp Factor V Activity POC ABG pH POC ABG pCO2 POC ABG pO2 ABG pO2 ABG HCO3 ABG Base Excess ABG Hemoglobin Oxyhemoglobin Sodium 135 L Potassium Chloride 95.6 L Carbon Dioxide BUN 70 H Creatinine 2.0 H Glucose 126 H POC Glucose Lactic Acid Calcium Ionized Calcium Phosphorus Magnesium Direct Bilirubin AST ALT Alkaline Phosphatase Lactate Dehydrogenase Troponin T C-Reactive Protein Total Protein Albumin Prealbumin Triglycerides Cholesterol LDL Cholesterol Direct HDL Cholesterol 25-OH Vitamin D Total PTH Intact Urine pH Urine WBC (Auto) Urine Creatinine Urine Total Protein Fluid Total Protein Vancomycin Trough Rheumatoid Factor Complement C4 Miscellaneous Test Crossmatch See Detail 11/07/16 11/07/16 11/07/16 12:52 18:51 21:26 WBC RBC Hgb Hct MCV MCH MCHC RDW Plt Count Lymph % (Auto) [place] % (Auto) Lymph # [place] # Baso # Seg Neutrophils % Seg Neuts % (Manual) Lymphocytes % (Manual) Monocytes % (Manual) Eosinophils % (Manual) Basophils % (Manual) Nucleated RBC % Seg Neutrophils # Seg Neutrophils # Man Lymphocytes # (Manual) Monocytes # (Manual) Eosinophils # (Manual) Basophils # (Manual) PT INR Fibrinogen dRVVT Confirm Interp Factor V Activity POC ABG pH 7.523 H POC ABG pCO2 34.6 L POC ABG pO2 53 L ABG pO2 ABG HCO3 ABG Base Excess ABG Hemoglobin Oxyhemoglobin Sodium Potassium Chloride Carbon Dioxide BUN Creatinine Glucose POC Glucose 142 H 155 H Lactic Acid Calcium Ionized Calcium Phosphorus Magnesium Direct Bilirubin AST ALT Alkaline Phosphatase Lactate Dehydrogenase Troponin T C-Reactive Protein Total Protein Albumin Prealbumin Triglycerides Cholesterol LDL Cholesterol Direct HDL Cholesterol 25-OH Vitamin D Total PTH Intact Urine pH Urine WBC (Auto) Urine Creatinine Urine Total Protein Fluid Total Protein Vancomycin Trough Rheumatoid Factor Complement C4 Miscellaneous Test Crossmatch 11/07/16 11/08/16 11/08/16 21:34 13:03 23:37 WBC RBC 2.63 L Hgb 7.7 L Hct 22.7 L MCV MCH MCHC RDW 17.0 H Plt Count Lymph % (Auto) [place] % (Auto) Lymph # [place] # Baso # Seg Neutrophils % Seg Neuts % (Manual) Lymphocytes % (Manual) Monocytes % (Manual) Eosinophils % (Manual) Basophils % (Manual) Nucleated RBC % Seg Neutrophils # Seg Neutrophils # Man Lymphocytes # (Manual) Monocytes # (Manual) Eosinophils # (Manual) Basophils # (Manual) PT INR Fibrinogen dRVVT Confirm Interp Factor V Activity POC ABG pH 7.478 H POC ABG pCO2 34.0 L POC ABG pO2 50 L ABG pO2 ABG HCO3 ABG Base Excess ABG Hemoglobin Oxyhemoglobin Sodium Potassium Chloride Carbon Dioxide BUN Creatinine Glucose POC Glucose 113 H Lactic Acid Calcium Ionized Calcium Phosphorus Magnesium Direct Bilirubin AST ALT Alkaline Phosphatase Lactate Dehydrogenase Troponin T C-Reactive Protein Total Protein Albumin Prealbumin Triglycerides Cholesterol LDL Cholesterol Direct HDL Cholesterol 25-OH Vitamin D Total PTH Intact Urine pH Urine WBC (Auto) Urine Creatinine Urine Total Protein Fluid Total Protein Vancomycin Trough Rheumatoid Factor Complement C4 Miscellaneous Test Crossmatch 11/09/16 11/09/16 11/09/16 04:35 10:15 18:21 WBC RBC 2.68 L Hgb 7.8 L Hct 23.3 L MCV MCH MCHC RDW 17.0 H Plt Count Lymph % (Auto) [place] % (Auto) 12.1 H Lymph # [place] # 1.1 H Baso # Seg Neutrophils % Seg Neuts % (Manual) Lymphocytes % (Manual) Monocytes % (Manual) Eosinophils % (Manual) Basophils % (Manual) Nucleated RBC % Seg Neutrophils # Seg Neutrophils # Man Lymphocytes # (Manual) Monocytes # (Manual) Eosinophils # (Manual) Basophils # (Manual) PT INR Fibrinogen dRVVT Confirm Interp Factor V Activity POC ABG pH POC ABG pCO2 POC ABG pO2 ABG pO2 ABG HCO3 ABG Base Excess ABG Hemoglobin Oxyhemoglobin Sodium Potassium Chloride Carbon Dioxide BUN 51 H Creatinine 1.8 H Glucose POC Glucose 60 L Lactic Acid Calcium 8.3 L Ionized Calcium Phosphorus Magnesium Direct Bilirubin AST ALT Alkaline Phosphatase Lactate Dehydrogenase Troponin T C-Reactive Protein Total Protein Albumin Prealbumin Triglycerides Cholesterol LDL Cholesterol Direct HDL Cholesterol 25-OH Vitamin D Total PTH Intact Urine pH Urine WBC (Auto) Urine Creatinine Urine Total Protein Fluid Total Protein Vancomycin Trough Rheumatoid Factor Complement C4 Miscellaneous Test Crossmatch 11/09/16 11/10/16 11/10/16 18:55 07:00 11:51 WBC RBC Hgb Hct MCV MCH MCHC RDW Plt Count Lymph % (Auto) [place] % (Auto) Lymph # [place] # Baso # Seg Neutrophils % Seg Neuts % (Manual) Lymphocytes % (Manual) Monocytes % (Manual) Eosinophils % (Manual) Basophils % (Manual) Nucleated RBC % Seg Neutrophils # Seg Neutrophils # Man Lymphocytes # (Manual) Monocytes # (Manual) Eosinophils # (Manual) Basophils # (Manual) PT INR Fibrinogen dRVVT Confirm Interp Factor V Activity POC ABG pH POC ABG pCO2 POC ABG pO2 ABG pO2 ABG HCO3 ABG Base Excess ABG Hemoglobin Oxyhemoglobin Sodium Potassium 3.0 L D Chloride 97.4 L Carbon Dioxide BUN 28 H Creatinine 1.3 H Glucose POC Glucose 68 L 120 H Lactic Acid Calcium 7.8 L Ionized Calcium Phosphorus Magnesium Direct Bilirubin AST ALT Alkaline Phosphatase Lactate Dehydrogenase Troponin T C-Reactive Protein Total Protein Albumin Prealbumin Triglycerides Cholesterol LDL Cholesterol Direct HDL Cholesterol 25-OH Vitamin D Total PTH Intact Urine pH Urine WBC (Auto) Urine Creatinine Urine Total Protein Fluid Total Protein Vancomycin Trough Rheumatoid Factor Complement C4 Miscellaneous Test Crossmatch 11/10/16 11/11/16 11/11/16 14:20 06:59 06:59 WBC RBC 2.81 L Hgb 8.1 L Hct 24.4 L MCV MCH MCHC RDW 16.4 H Plt Count Lymph % (Auto) [place] % (Auto) 10.8 H Lymph # [place] # 1.0 H Baso # Seg Neutrophils % Seg Neuts % (Manual) Lymphocytes % (Manual) Monocytes % (Manual) Eosinophils % (Manual) Basophils % (Manual) Nucleated RBC % Seg Neutrophils # Seg Neutrophils # Man Lymphocytes # (Manual) Monocytes # (Manual) Eosinophils # (Manual) Basophils # (Manual) PT INR Fibrinogen dRVVT Confirm Interp Factor V Activity POC ABG pH POC ABG pCO2 POC ABG pO2 ABG pO2 ABG HCO3 ABG Base Excess ABG Hemoglobin Oxyhemoglobin Sodium Potassium Chloride Carbon Dioxide BUN Creatinine Glucose POC Glucose Lactic Acid Calcium Ionized Calcium Phosphorus Magnesium Direct Bilirubin AST ALT Alkaline Phosphatase Lactate Dehydrogenase 196 H Troponin T C-Reactive Protein Total Protein 6.1 L Albumin Prealbumin Triglycerides Cholesterol LDL Cholesterol Direct HDL Cholesterol 25-OH Vitamin D Total PTH Intact Urine pH Urine WBC (Auto) Urine Creatinine Urine Total Protein Fluid Total Protein < 3.0 L Vancomycin Trough Rheumatoid Factor Complement C4 Miscellaneous Test Crossmatch 11/11/16 11/11/16 11/12/16 06:59 09:50 04:00 WBC RBC Hgb Hct MCV MCH MCHC RDW Plt Count Lymph % (Auto) [place] % (Auto) Lymph # [place] # Baso # Seg Neutrophils % Seg Neuts % (Manual) Lymphocytes % (Manual) Monocytes % (Manual) Eosinophils % (Manual) Basophils % (Manual) Nucleated RBC % Seg Neutrophils # Seg Neutrophils # Man Lymphocytes # (Manual) Monocytes # (Manual) Eosinophils # (Manual) Basophils # (Manual) PT INR 1.18 H Fibrinogen dRVVT Confirm Interp Factor V Activity POC ABG pH POC ABG pCO2 POC ABG pO2 ABG pO2 ABG HCO3 ABG Base Excess ABG Hemoglobin Oxyhemoglobin Sodium 136 L 133 L Potassium Chloride 96.1 L 94.8 L Carbon Dioxide 21 L BUN 37 H 42 H Creatinine 1.8 H 2.0 H Glucose POC Glucose Lactic Acid Calcium Ionized Calcium Phosphorus Magnesium Direct Bilirubin AST ALT Alkaline Phosphatase Lactate Dehydrogenase Troponin T C-Reactive Protein Total Protein Albumin Prealbumin Triglycerides Cholesterol LDL Cholesterol Direct HDL Cholesterol 25-OH Vitamin D Total PTH Intact Urine pH Urine WBC (Auto) Urine Creatinine Urine Total Protein Fluid Total Protein Vancomycin Trough Rheumatoid Factor Complement C4 Miscellaneous Test Crossmatch 11/12/16 11/12/16 11/13/16 04:00 23:55 05:53 WBC RBC Hgb 8.9 L Hct 27.2 L MCV MCH MCHC RDW Plt Count Lymph % (Auto) [place] % (Auto) Lymph # [place] # Baso # Seg Neutrophils % Seg Neuts % (Manual) Lymphocytes % (Manual) Monocytes % (Manual) Eosinophils % (Manual) Basophils % (Manual) Nucleated RBC % Seg Neutrophils # Seg Neutrophils # Man Lymphocytes # (Manual) Monocytes # (Manual) Eosinophils # (Manual) Basophils # (Manual) PT INR Fibrinogen dRVVT Confirm Interp Factor V Activity POC ABG pH POC ABG pCO2 POC ABG pO2 ABG pO2 ABG HCO3 ABG Base Excess ABG Hemoglobin Oxyhemoglobin Sodium Potassium Chloride Carbon Dioxide BUN Creatinine Glucose POC Glucose 132 H 120 H Lactic Acid Calcium Ionized Calcium Phosphorus Magnesium Direct Bilirubin AST ALT Alkaline Phosphatase Lactate Dehydrogenase Troponin T C-Reactive Protein Total Protein Albumin Prealbumin Triglycerides Cholesterol LDL Cholesterol Direct HDL Cholesterol 25-OH Vitamin D Total PTH Intact Urine pH Urine WBC (Auto) Urine Creatinine Urine Total Protein Fluid Total Protein Vancomycin Trough Rheumatoid Factor Complement C4 Miscellaneous Test Crossmatch 11/13/16 11/13/16 11/13/16 11:43 17:09 23:41 WBC RBC Hgb Hct MCV MCH MCHC RDW Plt Count Lymph % (Auto) [place] % (Auto) Lymph # [place] # Baso # Seg Neutrophils % Seg Neuts % (Manual) Lymphocytes % (Manual) Monocytes % (Manual) Eosinophils % (Manual) Basophils % (Manual) Nucleated RBC % Seg Neutrophils # Seg Neutrophils # Man Lymphocytes # (Manual) Monocytes # (Manual) Eosinophils # (Manual) Basophils # (Manual) PT INR Fibrinogen dRVVT Confirm Interp Factor V Activity POC ABG pH POC ABG pCO2 POC ABG pO2 ABG pO2 ABG HCO3 ABG Base Excess ABG Hemoglobin Oxyhemoglobin Sodium Potassium Chloride Carbon Dioxide BUN Creatinine Glucose POC Glucose 114 H 113 H 108 H Lactic Acid Calcium Ionized Calcium Phosphorus Magnesium Direct Bilirubin AST ALT Alkaline Phosphatase Lactate Dehydrogenase Troponin T C-Reactive Protein Total Protein Albumin Prealbumin Triglycerides Cholesterol LDL Cholesterol Direct HDL Cholesterol 25-OH Vitamin D Total PTH Intact Urine pH Urine WBC (Auto) Urine Creatinine Urine Total Protein Fluid Total Protein Vancomycin Trough Rheumatoid Factor Complement C4 Miscellaneous Test Crossmatch 11/13/16 11/15/16 11/15/16 Unknown 00:37 03:30 WBC 11.2 H RBC 2.72 L Hgb 7.6 L Hct 23.4 L MCV MCH MCHC RDW 16.5 H Plt Count Lymph % (Auto) [place] % (Auto) Lymph # [place] # Baso # Seg Neutrophils % Seg Neuts % (Manual) Lymphocytes % (Manual) Monocytes % (Manual) Eosinophils % (Manual) Basophils % (Manual) Nucleated RBC % Seg Neutrophils # Seg Neutrophils # Man Lymphocytes # (Manual) Monocytes # (Manual) Eosinophils # (Manual) Basophils # (Manual) PT INR Fibrinogen dRVVT Confirm Interp Factor V Activity POC ABG pH POC ABG pCO2 POC ABG pO2 ABG pO2 ABG HCO3 ABG Base Excess ABG Hemoglobin Oxyhemoglobin Sodium 135 L Potassium Chloride 95.2 L Carbon Dioxide BUN 52 H Creatinine 2.2 H Glucose POC Glucose 108 H Lactic Acid Calcium Ionized Calcium Phosphorus Magnesium Direct Bilirubin AST ALT Alkaline Phosphatase Lactate Dehydrogenase Troponin T C-Reactive Protein Total Protein Albumin Prealbumin Triglycerides Cholesterol LDL Cholesterol Direct HDL Cholesterol 25-OH Vitamin D Total PTH Intact Urine pH Urine WBC (Auto) Urine Creatinine Urine Total Protein Fluid Total Protein Vancomycin Trough Rheumatoid Factor Complement C4 Miscellaneous Test Crossmatch 11/15/16 11/15/16 11/15/16 03:30 05:04 11:50 WBC RBC Hgb Hct MCV MCH MCHC RDW Plt Count Lymph % (Auto) [place] % (Auto) Lymph # [place] # Baso # Seg Neutrophils % Seg Neuts % (Manual) Lymphocytes % (Manual) Monocytes % (Manual) Eosinophils % (Manual) Basophils % (Manual) Nucleated RBC % Seg Neutrophils # Seg Neutrophils # Man Lymphocytes # (Manual) Monocytes # (Manual) Eosinophils # (Manual) Basophils # (Manual) PT INR Fibrinogen dRVVT Confirm Interp Factor V Activity POC ABG pH POC ABG pCO2 POC ABG pO2 ABG pO2 ABG HCO3 ABG Base Excess ABG Hemoglobin Oxyhemoglobin Sodium Potassium 3.4 L Chloride Carbon Dioxide BUN 25 H Creatinine 1.5 H Glucose 103 H POC Glucose 121 H 144 H Lactic Acid Calcium Ionized Calcium Phosphorus Magnesium Direct Bilirubin AST ALT Alkaline Phosphatase Lactate Dehydrogenase Troponin T C-Reactive Protein Total Protein Albumin Prealbumin Triglycerides Cholesterol LDL Cholesterol Direct HDL Cholesterol 25-OH Vitamin D Total PTH Intact Urine pH Urine WBC (Auto) Urine Creatinine Urine Total Protein Fluid Total Protein Vancomycin Trough Rheumatoid Factor Complement C4 Miscellaneous Test Crossmatch 11/15/16 11/15/16 11/16/16 21:28 23:20 11:44 WBC RBC Hgb Hct MCV MCH MCHC RDW Plt Count Lymph % (Auto) [place] % (Auto) Lymph # [place] # Baso # Seg Neutrophils % Seg Neuts % (Manual) Lymphocytes % (Manual) Monocytes % (Manual) Eosinophils % (Manual) Basophils % (Manual) Nucleated RBC % Seg Neutrophils # Seg Neutrophils # Man Lymphocytes # (Manual) Monocytes # (Manual) Eosinophils # (Manual) Basophils # (Manual) PT INR Fibrinogen dRVVT Confirm Interp Factor V Activity POC ABG pH 7.462 H POC ABG pCO2 POC ABG pO2 71 L ABG pO2 ABG HCO3 ABG Base Excess ABG Hemoglobin Oxyhemoglobin Sodium Potassium Chloride Carbon Dioxide BUN Creatinine Glucose POC Glucose 116 H 133 H Lactic Acid Calcium Ionized Calcium Phosphorus Magnesium Direct Bilirubin AST ALT Alkaline Phosphatase Lactate Dehydrogenase Troponin T C-Reactive Protein Total Protein Albumin Prealbumin Triglycerides Cholesterol LDL Cholesterol Direct HDL Cholesterol 25-OH Vitamin D Total PTH Intact Urine pH Urine WBC (Auto) Urine Creatinine Urine Total Protein Fluid Total Protein Vancomycin Trough Rheumatoid Factor Complement C4 Miscellaneous Test Crossmatch 11/16/16 11/16/16 11/16/16 12:20 17:05 23:35 WBC 11.7 H RBC 2.73 L Hgb 7.6 L Hct 23.7 L MCV MCH MCHC RDW 16.6 H Plt Count Lymph % (Auto) [place] % (Auto) Lymph # [place] # Baso # Seg Neutrophils % Seg Neuts % (Manual) Lymphocytes % (Manual) Monocytes % (Manual) Eosinophils % (Manual) Basophils % (Manual) Nucleated RBC % Seg Neutrophils # Seg Neutrophils # Man Lymphocytes # (Manual) Monocytes # (Manual) Eosinophils # (Manual) Basophils # (Manual) PT INR Fibrinogen dRVVT Confirm Interp Factor V Activity POC ABG pH POC ABG pCO2 POC ABG pO2 ABG pO2 ABG HCO3 ABG Base Excess ABG Hemoglobin Oxyhemoglobin Sodium Potassium Chloride Carbon Dioxide BUN Creatinine Glucose POC Glucose 154 H 125 H Lactic Acid Calcium Ionized Calcium Phosphorus Magnesium Direct Bilirubin AST ALT Alkaline Phosphatase Lactate Dehydrogenase Troponin T C-Reactive Protein Total Protein Albumin Prealbumin Triglycerides Cholesterol LDL Cholesterol Direct HDL Cholesterol 25-OH Vitamin D Total PTH Intact Urine pH Urine WBC (Auto) Urine Creatinine Urine Total Protein Fluid Total Protein Vancomycin Trough Rheumatoid Factor Complement C4 Miscellaneous Test Crossmatch 11/17/16 11/17/16 11/17/16 03:20 03:20 03:20 WBC RBC 2.55 L Hgb 7.3 L Hct 21.9 L MCV MCH MCHC RDW 16.6 H Plt Count Lymph % (Auto) [place] % (Auto) 11.5 H Lymph # [place] # 1.1 H Baso # Seg Neutrophils % Seg Neuts % (Manual) Lymphocytes % (Manual) Monocytes % (Manual) Eosinophils % (Manual) Basophils % (Manual) Nucleated RBC % Seg Neutrophils # Seg Neutrophils # Man Lymphocytes # (Manual) Monocytes # (Manual) Eosinophils # (Manual) Basophils # (Manual) PT 16.8 H INR 1.37 H Fibrinogen dRVVT Confirm Interp Factor V Activity POC ABG pH POC ABG pCO2 POC ABG pO2 ABG pO2 ABG HCO3 ABG Base Excess ABG Hemoglobin Oxyhemoglobin Sodium Potassium 3.5 L Chloride Carbon Dioxide BUN 21 H Creatinine Glucose POC Glucose Lactic Acid Calcium 7.9 L Ionized Calcium Phosphorus Magnesium Direct Bilirubin AST ALT Alkaline Phosphatase Lactate Dehydrogenase Troponin T C-Reactive Protein Total Protein Albumin Prealbumin Triglycerides Cholesterol LDL Cholesterol Direct HDL Cholesterol 25-OH Vitamin D Total PTH Intact Urine pH Urine WBC (Auto) Urine Creatinine Urine Total Protein Fluid Total Protein Vancomycin Trough Rheumatoid Factor Complement C4 Miscellaneous Test Crossmatch 11/17/16 11/17/16 11/17/16 06:34 11:21 21:22 WBC RBC Hgb Hct MCV MCH MCHC RDW Plt Count Lymph % (Auto) [place] % (Auto) Lymph # [place] # Baso # Seg Neutrophils % Seg Neuts % (Manual) Lymphocytes % (Manual) Monocytes % (Manual) Eosinophils % (Manual) Basophils % (Manual) Nucleated RBC % Seg Neutrophils # Seg Neutrophils # Man Lymphocytes # (Manual) Monocytes # (Manual) Eosinophils # (Manual) Basophils # (Manual) PT INR Fibrinogen dRVVT Confirm Interp Factor V Activity POC ABG pH 7.467 H POC ABG pCO2 POC ABG pO2 73 L ABG pO2 ABG HCO3 ABG Base Excess ABG Hemoglobin Oxyhemoglobin Sodium Potassium Chloride Carbon Dioxide BUN Creatinine Glucose POC Glucose 121 H 119 H Lactic Acid Calcium Ionized Calcium Phosphorus Magnesium Direct Bilirubin AST ALT Alkaline Phosphatase Lactate Dehydrogenase Troponin T C-Reactive Protein Total Protein Albumin Prealbumin Triglycerides Cholesterol LDL Cholesterol Direct HDL Cholesterol 25-OH Vitamin D Total PTH Intact Urine pH Urine WBC (Auto) Urine Creatinine Urine Total Protein Fluid Total Protein Vancomycin Trough Rheumatoid Factor Complement C4 Miscellaneous Test Crossmatch 11/18/16 11/18/16 11/19/16 12:16 17:19 00:00 WBC RBC Hgb Hct MCV MCH MCHC RDW Plt Count Lymph % (Auto) [place] % (Auto) Lymph # [place] # Baso # Seg Neutrophils % Seg Neuts % (Manual) Lymphocytes % (Manual) Monocytes % (Manual) Eosinophils % (Manual) Basophils % (Manual) Nucleated RBC % Seg Neutrophils # Seg Neutrophils # Man Lymphocytes # (Manual) Monocytes # (Manual) Eosinophils # (Manual) Basophils # (Manual) PT INR Fibrinogen dRVVT Confirm Interp Factor V Activity POC ABG pH POC ABG pCO2 POC ABG pO2 ABG pO2 ABG HCO3 ABG Base Excess ABG Hemoglobin Oxyhemoglobin Sodium Potassium Chloride Carbon Dioxide BUN Creatinine Glucose POC Glucose 124 H 162 H 139 H Lactic Acid Calcium Ionized Calcium Phosphorus Magnesium Direct Bilirubin AST ALT Alkaline Phosphatase Lactate Dehydrogenase Troponin T C-Reactive Protein Total Protein Albumin Prealbumin Triglycerides Cholesterol LDL Cholesterol Direct HDL Cholesterol 25-OH Vitamin D Total PTH Intact Urine pH Urine WBC (Auto) Urine Creatinine Urine Total Protein Fluid Total Protein Vancomycin Trough Rheumatoid Factor Complement C4 Miscellaneous Test Crossmatch 11/19/16 11/19/16 11/20/16 05:00 12:43 00:40 WBC RBC Hgb Hct MCV MCH MCHC RDW Plt Count Lymph % (Auto) [place] % (Auto) Lymph # [place] # Baso # Seg Neutrophils % Seg Neuts % (Manual) Lymphocytes % (Manual) Monocytes % (Manual) Eosinophils % (Manual) Basophils % (Manual) Nucleated RBC % Seg Neutrophils # Seg Neutrophils # Man Lymphocytes # (Manual) Monocytes # (Manual) Eosinophils # (Manual) Basophils # (Manual) PT INR Fibrinogen dRVVT Confirm Interp Factor V Activity POC ABG pH POC ABG pCO2 POC ABG pO2 ABG pO2 ABG HCO3 ABG Base Excess ABG Hemoglobin Oxyhemoglobin Sodium Potassium Chloride Carbon Dioxide BUN Creatinine Glucose POC Glucose 110 H 125 H 136 H Lactic Acid Calcium Ionized Calcium Phosphorus Magnesium Direct Bilirubin AST ALT Alkaline Phosphatase Lactate Dehydrogenase Troponin T C-Reactive Protein Total Protein Albumin Prealbumin Triglycerides Cholesterol LDL Cholesterol Direct HDL Cholesterol 25-OH Vitamin D Total PTH Intact Urine pH Urine WBC (Auto) Urine Creatinine Urine Total Protein Fluid Total Protein Vancomycin Trough Rheumatoid Factor Complement C4 Miscellaneous Test Crossmatch 11/20/16 11/20/16 11/20/16 05:00 05:00 05:51 WBC 13.1 H RBC 2.74 L Hgb 7.7 L Hct 23.6 L MCV MCH MCHC RDW 16.9 H Plt Count Lymph % (Auto) [place] % (Auto) 10.8 H Lymph # [place] # 1.4 H Baso # Seg Neutrophils % Seg Neuts % (Manual) Lymphocytes % (Manual) Monocytes % (Manual) Eosinophils % (Manual) Basophils % (Manual) Nucleated RBC % Seg Neutrophils # 7.9 H Seg Neutrophils # Man Lymphocytes # (Manual) Monocytes # (Manual) Eosinophils # (Manual) Basophils # (Manual) PT INR Fibrinogen dRVVT Confirm Interp Factor V Activity POC ABG pH POC ABG pCO2 POC ABG pO2 ABG pO2 ABG HCO3 ABG Base Excess ABG Hemoglobin Oxyhemoglobin Sodium Potassium Chloride Carbon Dioxide BUN 31 H Creatinine 1.8 H Glucose 129 H POC Glucose 133 H Lactic Acid Calcium Ionized Calcium Phosphorus Magnesium Direct Bilirubin AST ALT Alkaline Phosphatase Lactate Dehydrogenase Troponin T C-Reactive Protein Total Protein Albumin Prealbumin Triglycerides Cholesterol LDL Cholesterol Direct HDL Cholesterol 25-OH Vitamin D Total PTH Intact Urine pH Urine WBC (Auto) Urine Creatinine Urine Total Protein Fluid Total Protein Vancomycin Trough Rheumatoid Factor Complement C4 Miscellaneous Test Crossmatch 11/20/16 11/20/16 11/21/16 12:40 18:10 01:20 WBC RBC Hgb Hct MCV MCH MCHC RDW Plt Count Lymph % (Auto) [place] % (Auto) Lymph # [place] # Baso # Seg Neutrophils % Seg Neuts % (Manual) Lymphocytes % (Manual) Monocytes % (Manual) Eosinophils % (Manual) Basophils % (Manual) Nucleated RBC % Seg Neutrophils # Seg Neutrophils # Man Lymphocytes # (Manual) Monocytes # (Manual) Eosinophils # (Manual) Basophils # (Manual) PT INR Fibrinogen dRVVT Confirm Interp Factor V Activity POC ABG pH POC ABG pCO2 POC ABG pO2 ABG pO2 ABG HCO3 ABG Base Excess ABG Hemoglobin Oxyhemoglobin Sodium Potassium Chloride Carbon Dioxide BUN Creatinine Glucose POC Glucose 134 H 138 H 136 H Lactic Acid Calcium Ionized Calcium Phosphorus Magnesium Direct Bilirubin AST ALT Alkaline Phosphatase Lactate Dehydrogenase Troponin T C-Reactive Protein Total Protein Albumin Prealbumin Triglycerides Cholesterol LDL Cholesterol Direct HDL Cholesterol 25-OH Vitamin D Total PTH Intact Urine pH Urine WBC (Auto) Urine Creatinine Urine Total Protein Fluid Total Protein Vancomycin Trough Rheumatoid Factor Complement C4 Miscellaneous Test Crossmatch 11/21/16 11/21/16 11/21/16 07:04 07:45 07:45 WBC 22.0 H RBC 2.91 L Hgb 8.2 L Hct 25.4 L MCV MCH MCHC RDW 17.1 H Plt Count Lymph % (Auto) [place] % (Auto) Lymph # [place] # Baso # Seg Neutrophils % Seg Neuts % (Manual) Lymphocytes % (Manual) 8.0 L Monocytes % (Manual) Eosinophils % (Manual) Basophils % (Manual) Nucleated RBC % Seg Neutrophils # Seg Neutrophils # Man 14.7 H Lymphocytes # (Manual) Monocytes # (Manual) 1.1 H Eosinophils # (Manual) Basophils # (Manual) PT INR Fibrinogen dRVVT Confirm Interp Factor V Activity POC ABG pH POC ABG pCO2 POC ABG pO2 ABG pO2 ABG HCO3 ABG Base Excess ABG Hemoglobin Oxyhemoglobin Sodium Potassium Chloride Carbon Dioxide BUN 42 H Creatinine 2.0 H Glucose POC Glucose 108 H Lactic Acid Calcium Ionized Calcium Phosphorus Magnesium Direct Bilirubin AST ALT Alkaline Phosphatase Lactate Dehydrogenase Troponin T C-Reactive Protein Total Protein Albumin Prealbumin Triglycerides Cholesterol LDL Cholesterol Direct HDL Cholesterol 25-OH Vitamin D Total PTH Intact Urine pH Urine WBC (Auto) Urine Creatinine Urine Total Protein Fluid Total Protein Vancomycin Trough Rheumatoid Factor Complement C4 Miscellaneous Test Crossmatch 11/21/16 11/21/16 11/21/16 08:38 10:09 11:20 WBC RBC Hgb Hct MCV MCH MCHC RDW Plt Count Lymph % (Auto) [place] % (Auto) Lymph # [place] # Baso # Seg Neutrophils % Seg Neuts % (Manual) Lymphocytes % (Manual) Monocytes % (Manual) Eosinophils % (Manual) Basophils % (Manual) Nucleated RBC % Seg Neutrophils # Seg Neutrophils # Man Lymphocytes # (Manual) Monocytes # (Manual) Eosinophils # (Manual) Basophils # (Manual) PT INR Fibrinogen dRVVT Confirm Interp Factor V Activity POC ABG pH 7.346 L POC ABG pCO2 34.4 L POC ABG pO2 314 H ABG pO2 ABG HCO3 ABG Base Excess ABG Hemoglobin Oxyhemoglobin Sodium Potassium Chloride Carbon Dioxide BUN Creatinine Glucose POC Glucose 195 H 153 H Lactic Acid Calcium Ionized Calcium Phosphorus Magnesium Direct Bilirubin AST ALT Alkaline Phosphatase Lactate Dehydrogenase Troponin T C-Reactive Protein Total Protein Albumin Prealbumin Triglycerides Cholesterol LDL Cholesterol Direct HDL Cholesterol 25-OH Vitamin D Total PTH Intact Urine pH Urine WBC (Auto) Urine Creatinine Urine Total Protein Fluid Total Protein Vancomycin Trough Rheumatoid Factor Complement C4 Miscellaneous Test Crossmatch 11/21/16 11/22/16 11/22/16 23:37 04:48 05:00 WBC 29.7 H RBC 2.73 L Hgb 7.5 L Hct 24.2 L MCV MCH 27 L MCHC RDW 17.4 H Plt Count Lymph % (Auto) [place] % (Auto) Lymph # [place] # Baso # Seg Neutrophils % Seg Neuts % (Manual) Lymphocytes % (Manual) 7.0 L Monocytes % (Manual) Eosinophils % (Manual) Basophils % (Manual) Nucleated RBC % Seg Neutrophils # Seg Neutrophils # Man 15.4 H Lymphocytes # (Manual) Monocytes # (Manual) Eosinophils # (Manual) Basophils # (Manual) PT INR Fibrinogen dRVVT Confirm Interp Factor V Activity POC ABG pH POC ABG pCO2 24.6 L POC ABG pO2 189 H ABG pO2 ABG HCO3 ABG Base Excess ABG Hemoglobin Oxyhemoglobin Sodium Potassium Chloride Carbon Dioxide BUN Creatinine Glucose POC Glucose 65 L Lactic Acid Calcium Ionized Calcium Phosphorus Magnesium Direct Bilirubin AST ALT Alkaline Phosphatase Lactate Dehydrogenase Troponin T C-Reactive Protein Total Protein Albumin Prealbumin Triglycerides Cholesterol LDL Cholesterol Direct HDL Cholesterol 25-OH Vitamin D Total PTH Intact Urine pH Urine WBC (Auto) Urine Creatinine Urine Total Protein Fluid Total Protein Vancomycin Trough Rheumatoid Factor Complement C4 Miscellaneous Test Crossmatch 11/22/16 11/23/16 11/23/16 05:00 03:44 04:06 WBC RBC 2.52 L Hgb 7.2 L Hct 21.5 L MCV MCH MCHC RDW 17.1 H Plt Count Lymph % (Auto) [place] % (Auto) 12.4 H Lymph # [place] # 1.4 H Baso # Seg Neutrophils % Seg Neuts % (Manual) Lymphocytes % (Manual) Monocytes % (Manual) Eosinophils % (Manual) Basophils % (Manual) Nucleated RBC % Seg Neutrophils # Seg Neutrophils # Man Lymphocytes # (Manual) Monocytes # (Manual) Eosinophils # (Manual) Basophils # (Manual) PT INR Fibrinogen dRVVT Confirm Interp Factor V Activity POC ABG pH 7.493 H POC ABG pCO2 29.5 L POC ABG pO2 49 L ABG pO2 ABG HCO3 ABG Base Excess ABG Hemoglobin Oxyhemoglobin Sodium 134 L Potassium Chloride 95.9 L Carbon Dioxide 14 L D BUN 51 H Creatinine 2.6 H Glucose POC Glucose Lactic Acid Calcium Ionized Calcium Phosphorus Magnesium Direct Bilirubin AST ALT Alkaline Phosphatase Lactate Dehydrogenase Troponin T C-Reactive Protein Total Protein Albumin Prealbumin Triglycerides Cholesterol LDL Cholesterol Direct HDL Cholesterol 25-OH Vitamin D Total PTH Intact Urine pH Urine WBC (Auto) Urine Creatinine Urine Total Protein Fluid Total Protein Vancomycin Trough Rheumatoid Factor Complement C4 Miscellaneous Test Crossmatch 11/23/16 11/23/16 11/24/16 04:06 11:29 06:39 WBC RBC Hgb Hct MCV MCH MCHC RDW Plt Count Lymph % (Auto) [place] % (Auto) Lymph # [place] # Baso # Seg Neutrophils % Seg Neuts % (Manual) Lymphocytes % (Manual) Monocytes % (Manual) Eosinophils % (Manual) Basophils % (Manual) Nucleated RBC % Seg Neutrophils # Seg Neutrophils # Man Lymphocytes # (Manual) Monocytes # (Manual) Eosinophils # (Manual) Basophils # (Manual) PT INR Fibrinogen dRVVT Confirm Interp Factor V Activity POC ABG pH POC ABG pCO2 POC ABG pO2 ABG pO2 ABG HCO3 ABG Base Excess ABG Hemoglobin Oxyhemoglobin Sodium 136 L Potassium Chloride 95.2 L Carbon Dioxide BUN 60 H Creatinine 2.9 H Glucose POC Glucose 69 L 305 H Lactic Acid Calcium Ionized Calcium Phosphorus Magnesium 1.60 L Direct Bilirubin AST ALT Alkaline Phosphatase Lactate Dehydrogenase Troponin T C-Reactive Protein Total Protein Albumin Prealbumin Triglycerides Cholesterol LDL Cholesterol Direct HDL Cholesterol 25-OH Vitamin D Total PTH Intact Urine pH Urine WBC (Auto) Urine Creatinine Urine Total Protein Fluid Total Protein Vancomycin Trough Rheumatoid Factor Complement C4 Miscellaneous Test Crossmatch 11/24/16 11/24/16 11/24/16 06:43 08:08 08:08 WBC 11.2 H RBC 2.47 L Hgb 6.8 L Hct 20.6 L MCV MCH MCHC RDW 17.0 H Plt Count Lymph % (Auto) [place] % (Auto) 10.3 H Lymph # [place] # 1.2 H Baso # Seg Neutrophils % Seg Neuts % (Manual) Lymphocytes % (Manual) Monocytes % (Manual) Eosinophils % (Manual) Basophils % (Manual) Nucleated RBC % Seg Neutrophils # Seg Neutrophils # Man Lymphocytes # (Manual) Monocytes # (Manual) Eosinophils # (Manual) Basophils # (Manual) PT INR Fibrinogen dRVVT Confirm Interp Factor V Activity POC ABG pH POC ABG pCO2 POC ABG pO2 ABG pO2 ABG HCO3 ABG Base Excess ABG Hemoglobin Oxyhemoglobin Sodium 135 L Potassium Chloride 96.3 L Carbon Dioxide BUN 61 H Creatinine 3.1 H Glucose POC Glucose 62 L Lactic Acid Calcium 8.2 L Ionized Calcium Phosphorus Magnesium Direct Bilirubin AST ALT Alkaline Phosphatase Lactate Dehydrogenase Troponin T C-Reactive Protein Total Protein Albumin Prealbumin Triglycerides Cholesterol LDL Cholesterol Direct HDL Cholesterol 25-OH Vitamin D Total PTH Intact Urine pH Urine WBC (Auto) Urine Creatinine Urine Total Protein Fluid Total Protein Vancomycin Trough Rheumatoid Factor Complement C4 Miscellaneous Test Crossmatch 11/24/16 11/24/16 11/24/16 08:34 11:20 12:41 WBC RBC Hgb Hct MCV MCH MCHC RDW Plt Count Lymph % (Auto) [place] % (Auto) Lymph # [place] # Baso # Seg Neutrophils % Seg Neuts % (Manual) Lymphocytes % (Manual) Monocytes % (Manual) Eosinophils % (Manual) Basophils % (Manual) Nucleated RBC % Seg Neutrophils # Seg Neutrophils # Man Lymphocytes # (Manual) Monocytes # (Manual) Eosinophils # (Manual) Basophils # (Manual) PT INR Fibrinogen dRVVT Confirm Interp Factor V Activity POC ABG pH POC ABG pCO2 POC ABG pO2 ABG pO2 ABG HCO3 ABG Base Excess ABG Hemoglobin Oxyhemoglobin Sodium Potassium Chloride Carbon Dioxide BUN Creatinine Glucose POC Glucose 108 H Lactic Acid Calcium Ionized Calcium Phosphorus Magnesium 1.60 L Direct Bilirubin AST ALT Alkaline Phosphatase Lactate Dehydrogenase Troponin T C-Reactive Protein Total Protein Albumin Prealbumin Triglycerides Cholesterol LDL Cholesterol Direct HDL Cholesterol 25-OH Vitamin D Total PTH Intact Urine pH Urine WBC (Auto) Urine Creatinine Urine Total Protein Fluid Total Protein Vancomycin Trough Rheumatoid Factor Complement C4 Miscellaneous Test Crossmatch See Detail 11/25/16 11/25/16 11/25/16 00:03 04:42 04:42 WBC RBC 3.03 L Hgb 8.6 L Hct 25.3 L MCV MCH MCHC RDW 16.2 H Plt Count Lymph % (Auto) [place] % (Auto) 8.1 H Lymph # [place] # Baso # Seg Neutrophils % 71.3 H Seg Neuts % (Manual) Lymphocytes % (Manual) Monocytes % (Manual) Eosinophils % (Manual) Basophils % (Manual) Nucleated RBC % Seg Neutrophils # Seg Neutrophils # Man Lymphocytes # (Manual) Monocytes # (Manual) Eosinophils # (Manual) Basophils # (Manual) PT INR Fibrinogen dRVVT Confirm Interp Factor V Activity POC ABG pH POC ABG pCO2 POC ABG pO2 ABG pO2 ABG HCO3 ABG Base Excess ABG Hemoglobin Oxyhemoglobin Sodium Potassium Chloride Carbon Dioxide BUN 61 H Creatinine 3.0 H Glucose 102 H POC Glucose 113 H Lactic Acid Calcium 8.2 L Ionized Calcium Phosphorus Magnesium Direct Bilirubin AST ALT Alkaline Phosphatase 142 H Lactate Dehydrogenase Troponin T C-Reactive Protein Total Protein 5.7 L Albumin 1.5 L Prealbumin Triglycerides Cholesterol LDL Cholesterol Direct HDL Cholesterol 25-OH Vitamin D Total PTH Intact Urine pH Urine WBC (Auto) Urine Creatinine Urine Total Protein Fluid Total Protein Vancomycin Trough Rheumatoid Factor Complement C4 Miscellaneous Test Crossmatch 11/25/16 11/25/16 11/25/16 05:12 11:31 14:12 WBC RBC Hgb Hct MCV MCH MCHC RDW Plt Count Lymph % (Auto) [place] % (Auto) Lymph # [place] # Baso # Seg Neutrophils % Seg Neuts % (Manual) Lymphocytes % (Manual) Monocytes % (Manual) Eosinophils % (Manual) Basophils % (Manual) Nucleated RBC % Seg Neutrophils # Seg Neutrophils # Man Lymphocytes # (Manual) Monocytes # (Manual) Eosinophils # (Manual) Basophils # (Manual) PT INR Fibrinogen dRVVT Confirm Interp Factor V Activity POC ABG pH 7.487 H POC ABG pCO2 POC ABG pO2 153 H ABG pO2 ABG HCO3 ABG Base Excess ABG Hemoglobin Oxyhemoglobin Sodium Potassium Chloride Carbon Dioxide BUN Creatinine Glucose POC Glucose 131 H 140 H Lactic Acid Calcium Ionized Calcium Phosphorus Magnesium Direct Bilirubin AST ALT Alkaline Phosphatase Lactate Dehydrogenase Troponin T C-Reactive Protein Total Protein Albumin Prealbumin Triglycerides Cholesterol LDL Cholesterol Direct HDL Cholesterol 25-OH Vitamin D Total PTH Intact Urine pH Urine WBC (Auto) Urine Creatinine Urine Total Protein Fluid Total Protein Vancomycin Trough Rheumatoid Factor Complement C4 Miscellaneous Test Crossmatch 11/25/16 11/26/16 11/26/16 17:23 00:09 05:13 WBC RBC 2.94 L Hgb 8.4 L Hct 24.6 L MCV MCH MCHC RDW 16.4 H Plt Count Lymph % (Auto) [place] % (Auto) 12.3 H Lymph # [place] # 1.1 H Baso # Seg Neutrophils % Seg Neuts % (Manual) Lymphocytes % (Manual) Monocytes % (Manual) Eosinophils % (Manual) Basophils % (Manual) Nucleated RBC % Seg Neutrophils # Seg Neutrophils # Man Lymphocytes # (Manual) Monocytes # (Manual) Eosinophils # (Manual) Basophils # (Manual) PT INR Fibrinogen dRVVT Confirm Interp Factor V Activity POC ABG pH POC ABG pCO2 POC ABG pO2 ABG pO2 ABG HCO3 ABG Base Excess ABG Hemoglobin Oxyhemoglobin Sodium Potassium Chloride Carbon Dioxide BUN Creatinine Glucose POC Glucose 146 H 112 H Lactic Acid Calcium Ionized Calcium Phosphorus Magnesium Direct Bilirubin AST ALT Alkaline Phosphatase Lactate Dehydrogenase Troponin T C-Reactive Protein Total Protein Albumin Prealbumin Triglycerides Cholesterol LDL Cholesterol Direct HDL Cholesterol 25-OH Vitamin D Total PTH Intact Urine pH Urine WBC (Auto) Urine Creatinine Urine Total Protein Fluid Total Protein Vancomycin Trough Rheumatoid Factor Complement C4 Miscellaneous Test Crossmatch 11/26/16 11/26/16 11/26/16 05:13 05:28 11:53 WBC RBC Hgb Hct MCV MCH MCHC RDW Plt Count Lymph % (Auto) [place] % (Auto) Lymph # [place] # Baso # Seg Neutrophils % Seg Neuts % (Manual) Lymphocytes % (Manual) Monocytes % (Manual) Eosinophils % (Manual) Basophils % (Manual) Nucleated RBC % Seg Neutrophils # Seg Neutrophils # Man Lymphocytes # (Manual) Monocytes # (Manual) Eosinophils # (Manual) Basophils # (Manual) PT INR Fibrinogen dRVVT Confirm Interp Factor V Activity POC ABG pH POC ABG pCO2 POC ABG pO2 ABG pO2 ABG HCO3 ABG Base Excess ABG Hemoglobin Oxyhemoglobin Sodium Potassium Chloride 97.8 L Carbon Dioxide BUN 37 H Creatinine 2.0 H Glucose 109 H POC Glucose 117 H 111 H Lactic Acid Calcium 7.9 L Ionized Calcium Phosphorus 1.80 L D Magnesium Direct Bilirubin AST ALT Alkaline Phosphatase Lactate Dehydrogenase Troponin T C-Reactive Protein Total Protein Albumin Prealbumin Triglycerides Cholesterol LDL Cholesterol Direct HDL Cholesterol 25-OH Vitamin D Total PTH Intact Urine pH Urine WBC (Auto) Urine Creatinine Urine Total Protein Fluid Total Protein Vancomycin Trough Rheumatoid Factor Complement C4 Miscellaneous Test Crossmatch 11/26/16 11/27/16 11/27/16 17:14 04:50 06:02 WBC RBC Hgb Hct MCV MCH MCHC RDW Plt Count Lymph % (Auto) [place] % (Auto) Lymph # [place] # Baso # Seg Neutrophils % Seg Neuts % (Manual) Lymphocytes % (Manual) Monocytes % (Manual) Eosinophils % (Manual) Basophils % (Manual) Nucleated RBC % Seg Neutrophils # Seg Neutrophils # Man Lymphocytes # (Manual) Monocytes # (Manual) Eosinophils # (Manual) Basophils # (Manual) PT INR Fibrinogen dRVVT Confirm Interp Factor V Activity POC ABG pH POC ABG pCO2 POC ABG pO2 ABG pO2 75.2 L ABG HCO3 26.4 H ABG Base Excess ABG Hemoglobin 7.6 L Oxyhemoglobin 94.8 L Sodium Potassium Chloride Carbon Dioxide BUN 49 H Creatinine 2.3 H Glucose POC Glucose 115 H Lactic Acid Calcium Ionized Calcium Phosphorus 1.50 L Magnesium Direct Bilirubin AST ALT Alkaline Phosphatase Lactate Dehydrogenase Troponin T C-Reactive Protein Total Protein Albumin Prealbumin Triglycerides Cholesterol LDL Cholesterol Direct HDL Cholesterol 25-OH Vitamin D Total PTH Intact Urine pH Urine WBC (Auto) Urine Creatinine Urine Total Protein Fluid Total Protein Vancomycin Trough Rheumatoid Factor Complement C4 Miscellaneous Test Crossmatch 11/27/16 11/27/16 11/27/16 06:02 11:25 17:25 WBC 11.6 H RBC 2.75 L Hgb 7.6 L Hct 23.4 L MCV MCH MCHC RDW 16.5 H Plt Count Lymph % (Auto) [place] % (Auto) Lymph # [place] # Baso # Seg Neutrophils % Seg Neuts % (Manual) Lymphocytes % (Manual) Monocytes % (Manual) Eosinophils % (Manual) Basophils % (Manual) Nucleated RBC % Seg Neutrophils # Seg Neutrophils # Man Lymphocytes # (Manual) Monocytes # (Manual) Eosinophils # (Manual) Basophils # (Manual) PT INR Fibrinogen dRVVT Confirm Interp Factor V Activity POC ABG pH POC ABG pCO2 POC ABG pO2 ABG pO2 ABG HCO3 ABG Base Excess ABG Hemoglobin Oxyhemoglobin Sodium Potassium Chloride Carbon Dioxide BUN Creatinine Glucose POC Glucose 114 H 126 H Lactic Acid Calcium Ionized Calcium Phosphorus Magnesium Direct Bilirubin AST ALT Alkaline Phosphatase Lactate Dehydrogenase Troponin T C-Reactive Protein Total Protein Albumin Prealbumin Triglycerides Cholesterol LDL Cholesterol Direct HDL Cholesterol 25-OH Vitamin D Total PTH Intact Urine pH Urine WBC (Auto) Urine Creatinine Urine Total Protein Fluid Total Protein Vancomycin Trough Rheumatoid Factor Complement C4 Miscellaneous Test Crossmatch 11/28/16 11/28/16 11/28/16 04:45 05:33 05:44 WBC RBC Hgb Hct MCV MCH MCHC RDW Plt Count Lymph % (Auto) [place] % (Auto) Lymph # [place] # Baso # Seg Neutrophils % Seg Neuts % (Manual) Lymphocytes % (Manual) Monocytes % (Manual) Eosinophils % (Manual) Basophils % (Manual) Nucleated RBC % Seg Neutrophils # Seg Neutrophils # Man Lymphocytes # (Manual) Monocytes # (Manual) Eosinophils # (Manual) Basophils # (Manual) PT INR Fibrinogen dRVVT Confirm Interp Factor V Activity POC ABG pH POC ABG pCO2 POC ABG pO2 ABG pO2 99.3 H ABG HCO3 ABG Base Excess ABG Hemoglobin 8.3 L Oxyhemoglobin Sodium Potassium Chloride Carbon Dioxide BUN 63 H Creatinine 2.4 H Glucose 102 H POC Glucose 108 H Lactic Acid Calcium Ionized Calcium Phosphorus 1.80 L Magnesium Direct Bilirubin AST ALT Alkaline Phosphatase Lactate Dehydrogenase Troponin T C-Reactive Protein Total Protein Albumin Prealbumin Triglycerides Cholesterol LDL Cholesterol Direct HDL Cholesterol 25-OH Vitamin D Total PTH Intact Urine pH Urine WBC (Auto) Urine Creatinine Urine Total Protein Fluid Total Protein Vancomycin Trough Rheumatoid Factor Complement C4 Miscellaneous Test Crossmatch 11/28/16 11/28/16 11/28/16 12:31 16:09 23:46 WBC RBC Hgb Hct MCV MCH MCHC RDW Plt Count Lymph % (Auto) [place] % (Auto) Lymph # [place] # Baso # Seg Neutrophils % Seg Neuts % (Manual) Lymphocytes % (Manual) Monocytes % (Manual) Eosinophils % (Manual) Basophils % (Manual) Nucleated RBC % Seg Neutrophils # Seg Neutrophils # Man Lymphocytes # (Manual) Monocytes # (Manual) Eosinophils # (Manual) Basophils # (Manual) PT INR Fibrinogen dRVVT Confirm Interp Factor V Activity POC ABG pH POC ABG pCO2 POC ABG pO2 ABG pO2 ABG HCO3 ABG Base Excess ABG Hemoglobin Oxyhemoglobin Sodium Potassium Chloride Carbon Dioxide BUN Creatinine Glucose POC Glucose 126 H 111 H 119 H Lactic Acid Calcium Ionized Calcium Phosphorus Magnesium Direct Bilirubin AST ALT Alkaline Phosphatase Lactate Dehydrogenase Troponin T C-Reactive Protein Total Protein Albumin Prealbumin Triglycerides Cholesterol LDL Cholesterol Direct HDL Cholesterol 25-OH Vitamin D Total PTH Intact Urine pH Urine WBC (Auto) Urine Creatinine Urine Total Protein Fluid Total Protein Vancomycin Trough Rheumatoid Factor Complement C4 Miscellaneous Test Crossmatch 11/29/16 11/29/16 11/29/16 03:33 04:52 05:10 WBC RBC Hgb Hct MCV MCH MCHC RDW Plt Count Lymph % (Auto) [place] % (Auto) Lymph # [place] # Baso # Seg Neutrophils % Seg Neuts % (Manual) Lymphocytes % (Manual) Monocytes % (Manual) Eosinophils % (Manual) Basophils % (Manual) Nucleated RBC % Seg Neutrophils # Seg Neutrophils # Man Lymphocytes # (Manual) Monocytes # (Manual) Eosinophils # (Manual) Basophils # (Manual) PT INR Fibrinogen dRVVT Confirm Interp Factor V Activity POC ABG pH POC ABG pCO2 POC ABG pO2 ABG pO2 ABG HCO3 ABG Base Excess ABG Hemoglobin 7.0 L Oxyhemoglobin 94.9 L Sodium Potassium Chloride Carbon Dioxide BUN 73 H Creatinine 2.7 H Glucose POC Glucose 108 H Lactic Acid Calcium Ionized Calcium Phosphorus Magnesium Direct Bilirubin AST ALT Alkaline Phosphatase Lactate Dehydrogenase Troponin T C-Reactive Protein Total Protein Albumin Prealbumin Triglycerides Cholesterol LDL Cholesterol Direct HDL Cholesterol 25-OH Vitamin D Total PTH Intact Urine pH Urine WBC (Auto) Urine Creatinine Urine Total Protein Fluid Total Protein Vancomycin Trough Rheumatoid Factor Complement C4 Miscellaneous Test Crossmatch 11/29/16 11/29/16 11/29/16 12:16 18:05 23:46 WBC RBC Hgb Hct MCV MCH MCHC RDW Plt Count Lymph % (Auto) [place] % (Auto) Lymph # [place] # Baso # Seg Neutrophils % Seg Neuts % (Manual) Lymphocytes % (Manual) Monocytes % (Manual) Eosinophils % (Manual) Basophils % (Manual) Nucleated RBC % Seg Neutrophils # Seg Neutrophils # Man Lymphocytes # (Manual) Monocytes # (Manual) Eosinophils # (Manual) Basophils # (Manual) PT INR Fibrinogen dRVVT Confirm Interp Factor V Activity POC ABG pH POC ABG pCO2 POC ABG pO2 ABG pO2 ABG HCO3 ABG Base Excess ABG Hemoglobin Oxyhemoglobin Sodium Potassium Chloride Carbon Dioxide BUN Creatinine Glucose POC Glucose 133 H 146 H 141 H Lactic Acid Calcium Ionized Calcium Phosphorus Magnesium Direct Bilirubin AST ALT Alkaline Phosphatase Lactate Dehydrogenase Troponin T C-Reactive Protein Total Protein Albumin Prealbumin Triglycerides Cholesterol LDL Cholesterol Direct HDL Cholesterol 25-OH Vitamin D Total PTH Intact Urine pH Urine WBC (Auto) Urine Creatinine Urine Total Protein Fluid Total Protein Vancomycin Trough Rheumatoid Factor Complement C4 Miscellaneous Test Crossmatch 11/30/16 11/30/16 11/30/16 04:17 04:17 04:32 WBC 12.0 H RBC 2.80 L Hgb 7.8 L Hct 23.6 L MCV MCH MCHC RDW 16.6 H Plt Count Lymph % (Auto) [place] % (Auto) 11.3 H Lymph # [place] # 1.4 H Baso # Seg Neutrophils % Seg Neuts % (Manual) Lymphocytes % (Manual) Monocytes % (Manual) Eosinophils % (Manual) Basophils % (Manual) Nucleated RBC % Seg Neutrophils # 8.2 H Seg Neutrophils # Man Lymphocytes # (Manual) Monocytes # (Manual) Eosinophils # (Manual) Basophils # (Manual) PT INR Fibrinogen dRVVT Confirm Interp Factor V Activity POC ABG pH POC ABG pCO2 POC ABG pO2 ABG pO2 ABG HCO3 ABG Base Excess ABG Hemoglobin Oxyhemoglobin Sodium 169 H* D Potassium 5.1 H Chloride 121.5 H Carbon Dioxide BUN 34 H Creatinine 1.3 H D Glucose 133 H POC Glucose 131 H Lactic Acid Calcium 10.3 H Ionized Calcium Phosphorus Magnesium Direct Bilirubin AST ALT Alkaline Phosphatase Lactate Dehydrogenase Troponin T C-Reactive Protein Total Protein Albumin Prealbumin Triglycerides Cholesterol LDL Cholesterol Direct HDL Cholesterol 25-OH Vitamin D Total PTH Intact Urine pH Urine WBC (Auto) Urine Creatinine Urine Total Protein Fluid Total Protein Vancomycin Trough Rheumatoid Factor Complement C4 Miscellaneous Test Crossmatch 11/30/16 11/30/16 11/30/16 05:45 11:10 17:26 WBC RBC Hgb Hct MCV MCH MCHC RDW Plt Count Lymph % (Auto) [place] % (Auto) Lymph # [place] # Baso # Seg Neutrophils % Seg Neuts % (Manual) Lymphocytes % (Manual) Monocytes % (Manual) Eosinophils % (Manual) Basophils % (Manual) Nucleated RBC % Seg Neutrophils # Seg Neutrophils # Man Lymphocytes # (Manual) Monocytes # (Manual) Eosinophils # (Manual) Basophils # (Manual) PT INR Fibrinogen dRVVT Confirm Interp Factor V Activity POC ABG pH POC ABG pCO2 POC ABG pO2 ABG pO2 ABG HCO3 ABG Base Excess ABG Hemoglobin Oxyhemoglobin Sodium Potassium Chloride Carbon Dioxide BUN 45 H Creatinine 1.6 H Glucose 131 H POC Glucose 146 H 134 H Lactic Acid Calcium Ionized Calcium Phosphorus Magnesium Direct Bilirubin AST ALT Alkaline Phosphatase Lactate Dehydrogenase Troponin T C-Reactive Protein Total Protein Albumin Prealbumin Triglycerides Cholesterol LDL Cholesterol Direct HDL Cholesterol 25-OH Vitamin D Total PTH Intact Urine pH Urine WBC (Auto) Urine Creatinine Urine Total Protein Fluid Total Protein Vancomycin Trough Rheumatoid Factor Complement C4 Miscellaneous Test Crossmatch 11/30/16 12/01/16 12/01/16 23:35 00:06 03:35 WBC RBC Hgb Hct MCV MCH MCHC RDW Plt Count Lymph % (Auto) [place] % (Auto) Lymph # [place] # Baso # Seg Neutrophils % Seg Neuts % (Manual) Lymphocytes % (Manual) Monocytes % (Manual) Eosinophils % (Manual) Basophils % (Manual) Nucleated RBC % Seg Neutrophils # Seg Neutrophils # Man Lymphocytes # (Manual) Monocytes # (Manual) Eosinophils # (Manual) Basophils # (Manual) PT INR Fibrinogen dRVVT Confirm Interp Factor V Activity POC ABG pH POC ABG pCO2 POC ABG pO2 ABG pO2 ABG HCO3 ABG Base Excess ABG Hemoglobin 6.9 L Oxyhemoglobin Sodium Potassium Chloride Carbon Dioxide BUN 58 H Creatinine 1.8 H Glucose 146 H POC Glucose 151 H Lactic Acid Calcium Ionized Calcium Phosphorus Magnesium Direct Bilirubin AST ALT Alkaline Phosphatase Lactate Dehydrogenase Troponin T C-Reactive Protein Total Protein Albumin Prealbumin Triglycerides Cholesterol LDL Cholesterol Direct HDL Cholesterol 25-OH Vitamin D Total PTH Intact Urine pH Urine WBC (Auto) Urine Creatinine Urine Total Protein Fluid Total Protein Vancomycin Trough Rheumatoid Factor Complement C4 Miscellaneous Test Crossmatch 12/01/16 12/01/16 12/01/16 03:35 05:47 11:52 WBC 12.3 H RBC 2.82 L Hgb 7.8 L Hct 23.7 L MCV MCH MCHC RDW 16.7 H Plt Count Lymph % (Auto) [place] % (Auto) 9.8 H Lymph # [place] # 1.2 H Baso # Seg Neutrophils % Seg Neuts % (Manual) Lymphocytes % (Manual) Monocytes % (Manual) Eosinophils % (Manual) Basophils % (Manual) Nucleated RBC % Seg Neutrophils # 8.4 H Seg Neutrophils # Man Lymphocytes # (Manual) Monocytes # (Manual) Eosinophils # (Manual) Basophils # (Manual) PT INR Fibrinogen dRVVT Confirm Interp Factor V Activity POC ABG pH POC ABG pCO2 POC ABG pO2 ABG pO2 ABG HCO3 ABG Base Excess ABG Hemoglobin Oxyhemoglobin Sodium Potassium Chloride Carbon Dioxide BUN Creatinine Glucose POC Glucose 152 H 152 H Lactic Acid Calcium Ionized Calcium Phosphorus Magnesium Direct Bilirubin AST ALT Alkaline Phosphatase Lactate Dehydrogenase Troponin T C-Reactive Protein Total Protein Albumin Prealbumin Triglycerides Cholesterol LDL Cholesterol Direct HDL Cholesterol 25-OH Vitamin D Total PTH Intact Urine pH Urine WBC (Auto) Urine Creatinine Urine Total Protein Fluid Total Protein Vancomycin Trough Rheumatoid Factor Complement C4 Miscellaneous Test Crossmatch 12/01/16 12/01/16 12/02/16 17:40 23:41 05:00 WBC RBC Hgb Hct MCV MCH MCHC RDW Plt Count Lymph % (Auto) [place] % (Auto) Lymph # [place] # Baso # Seg Neutrophils % Seg Neuts % (Manual) Lymphocytes % (Manual) Monocytes % (Manual) Eosinophils % (Manual) Basophils % (Manual) Nucleated RBC % Seg Neutrophils # Seg Neutrophils # Man Lymphocytes # (Manual) Monocytes # (Manual) Eosinophils # (Manual) Basophils # (Manual) PT INR Fibrinogen dRVVT Confirm Interp Factor V Activity POC ABG pH POC ABG pCO2 POC ABG pO2 ABG pO2 ABG HCO3 ABG Base Excess ABG Hemoglobin Oxyhemoglobin Sodium Potassium Chloride Carbon Dioxide BUN 45 H Creatinine Glucose 115 H POC Glucose 140 H 144 H Lactic Acid Calcium Ionized Calcium Phosphorus Magnesium Direct Bilirubin AST ALT Alkaline Phosphatase Lactate Dehydrogenase Troponin T C-Reactive Protein Total Protein Albumin Prealbumin Triglycerides Cholesterol LDL Cholesterol Direct HDL Cholesterol 25-OH Vitamin D Total PTH Intact Urine pH Urine WBC (Auto) Urine Creatinine Urine Total Protein Fluid Total Protein Vancomycin Trough Rheumatoid Factor Complement C4 Miscellaneous Test Crossmatch 12/02/16 12/02/16 12/02/16 05:31 11:20 17:38 WBC RBC Hgb Hct MCV MCH MCHC RDW Plt Count Lymph % (Auto) [place] % (Auto) Lymph # [place] # Baso # Seg Neutrophils % Seg Neuts % (Manual) Lymphocytes % (Manual) Monocytes % (Manual) Eosinophils % (Manual) Basophils % (Manual) Nucleated RBC % Seg Neutrophils # Seg Neutrophils # Man Lymphocytes # (Manual) Monocytes # (Manual) Eosinophils # (Manual) Basophils # (Manual) PT INR Fibrinogen dRVVT Confirm Interp Factor V Activity POC ABG pH POC ABG pCO2 POC ABG pO2 ABG pO2 ABG HCO3 ABG Base Excess ABG Hemoglobin Oxyhemoglobin Sodium Potassium Chloride Carbon Dioxide BUN Creatinine Glucose POC Glucose 136 H 177 H 139 H Lactic Acid Calcium Ionized Calcium Phosphorus Magnesium Direct Bilirubin AST ALT Alkaline Phosphatase Lactate Dehydrogenase Troponin T C-Reactive Protein Total Protein Albumin Prealbumin Triglycerides Cholesterol LDL Cholesterol Direct HDL Cholesterol 25-OH Vitamin D Total PTH Intact Urine pH Urine WBC (Auto) Urine Creatinine Urine Total Protein Fluid Total Protein Vancomycin Trough Rheumatoid Factor Complement C4 Miscellaneous Test Crossmatch 12/02/16 12/03/16 12/03/16 23:43 04:00 04:00 WBC 20.4 H RBC 2.74 L Hgb 7.4 L Hct 23.6 L MCV MCH 27 L MCHC RDW 17.1 H Plt Count Lymph % (Auto) [place] % (Auto) Lymph # [place] # Baso # Seg Neutrophils % Seg Neuts % (Manual) 31.0 L Lymphocytes % (Manual) Monocytes % (Manual) Eosinophils % (Manual) Basophils % (Manual) Nucleated RBC % Seg Neutrophils # Seg Neutrophils # Man Lymphocytes # (Manual) Monocytes # (Manual) Eosinophils # (Manual) Basophils # (Manual) PT INR Fibrinogen dRVVT Confirm Interp Factor V Activity POC ABG pH POC ABG pCO2 POC ABG pO2 ABG pO2 ABG HCO3 ABG Base Excess ABG Hemoglobin Oxyhemoglobin Sodium Potassium Chloride Carbon Dioxide BUN 61 H Creatinine 1.6 H Glucose 119 H POC Glucose 158 H Lactic Acid Calcium Ionized Calcium Phosphorus Magnesium Direct Bilirubin AST ALT Alkaline Phosphatase Lactate Dehydrogenase Troponin T C-Reactive Protein Total Protein Albumin Prealbumin Triglycerides Cholesterol LDL Cholesterol Direct HDL Cholesterol 25-OH Vitamin D Total PTH Intact Urine pH Urine WBC (Auto) Urine Creatinine Urine Total Protein Fluid Total Protein Vancomycin Trough Rheumatoid Factor Complement C4 Miscellaneous Test Crossmatch 12/03/16 12/03/16 12/03/16 05:02 12:11 18:16 WBC RBC Hgb Hct MCV MCH MCHC RDW Plt Count Lymph % (Auto) [place] % (Auto) Lymph # [place] # Baso # Seg Neutrophils % Seg Neuts % (Manual) Lymphocytes % (Manual) Monocytes % (Manual) Eosinophils % (Manual) Basophils % (Manual) Nucleated RBC % Seg Neutrophils # Seg Neutrophils # Man Lymphocytes # (Manual) Monocytes # (Manual) Eosinophils # (Manual) Basophils # (Manual) PT INR Fibrinogen dRVVT Confirm Interp Factor V Activity POC ABG pH POC ABG pCO2 POC ABG pO2 ABG pO2 ABG HCO3 ABG Base Excess ABG Hemoglobin Oxyhemoglobin Sodium Potassium Chloride Carbon Dioxide BUN Creatinine Glucose POC Glucose 146 H 157 H 124 H Lactic Acid Calcium Ionized Calcium Phosphorus Magnesium Direct Bilirubin AST ALT Alkaline Phosphatase Lactate Dehydrogenase Troponin T C-Reactive Protein Total Protein Albumin Prealbumin Triglycerides Cholesterol LDL Cholesterol Direct HDL Cholesterol 25-OH Vitamin D Total PTH Intact Urine pH Urine WBC (Auto) Urine Creatinine Urine Total Protein Fluid Total Protein Vancomycin Trough Rheumatoid Factor Complement C4 Miscellaneous Test Crossmatch 12/03/16 12/04/16 12/04/16 23:41 04:00 04:45 WBC RBC Hgb Hct MCV MCH MCHC RDW Plt Count Lymph % (Auto) [place] % (Auto) Lymph # [place] # Baso # Seg Neutrophils % Seg Neuts % (Manual) Lymphocytes % (Manual) Monocytes % (Manual) Eosinophils % (Manual) Basophils % (Manual) Nucleated RBC % Seg Neutrophils # Seg Neutrophils # Man Lymphocytes # (Manual) Monocytes # (Manual) Eosinophils # (Manual) Basophils # (Manual) PT INR Fibrinogen dRVVT Confirm Interp Factor V Activity POC ABG pH POC ABG pCO2 POC ABG pO2 ABG pO2 ABG HCO3 ABG Base Excess ABG Hemoglobin Oxyhemoglobin Sodium Potassium Chloride Carbon Dioxide BUN 76 H Creatinine 1.6 H Glucose POC Glucose 130 H 136 H Lactic Acid Calcium Ionized Calcium Phosphorus Magnesium Direct Bilirubin AST ALT Alkaline Phosphatase 155 H Lactate Dehydrogenase Troponin T C-Reactive Protein Total Protein 5.5 L Albumin 1.5 L Prealbumin Triglycerides Cholesterol LDL Cholesterol Direct HDL Cholesterol 25-OH Vitamin D Total PTH Intact Urine pH Urine WBC (Auto) Urine Creatinine Urine Total Protein Fluid Total Protein Vancomycin Trough Rheumatoid Factor Complement C4 Miscellaneous Test Crossmatch 12/04/16 12/04/16 12/05/16 12:08 17:23 00:10 WBC RBC Hgb Hct MCV MCH MCHC RDW Plt Count Lymph % (Auto) [place] % (Auto) Lymph # [place] # Baso # Seg Neutrophils % Seg Neuts % (Manual) Lymphocytes % (Manual) Monocytes % (Manual) Eosinophils % (Manual) Basophils % (Manual) Nucleated RBC % Seg Neutrophils # Seg Neutrophils # Man Lymphocytes # (Manual) Monocytes # (Manual) Eosinophils # (Manual) Basophils # (Manual) PT INR Fibrinogen dRVVT Confirm Interp Factor V Activity POC ABG pH POC ABG pCO2 POC ABG pO2 ABG pO2 ABG HCO3 ABG Base Excess ABG Hemoglobin Oxyhemoglobin Sodium Potassium Chloride Carbon Dioxide BUN Creatinine Glucose POC Glucose 114 H 129 H 124 H Lactic Acid Calcium Ionized Calcium Phosphorus Magnesium Direct Bilirubin AST ALT Alkaline Phosphatase Lactate Dehydrogenase Troponin T C-Reactive Protein Total Protein Albumin Prealbumin Triglycerides Cholesterol LDL Cholesterol Direct HDL Cholesterol 25-OH Vitamin D Total PTH Intact Urine pH Urine WBC (Auto) Urine Creatinine Urine Total Protein Fluid Total Protein Vancomycin Trough Rheumatoid Factor Complement C4 Miscellaneous Test Crossmatch 12/05/16 12/05/16 12/05/16 05:00 05:00 05:18 WBC RBC Hgb Hct MCV MCH MCHC RDW Plt Count Lymph % (Auto) [place] % (Auto) Lymph # [place] # Baso # Seg Neutrophils % Seg Neuts % (Manual) Lymphocytes % (Manual) Monocytes % (Manual) Eosinophils % (Manual) Basophils % (Manual) Nucleated RBC % Seg Neutrophils # Seg Neutrophils # Man Lymphocytes # (Manual) Monocytes # (Manual) Eosinophils # (Manual) Basophils # (Manual) PT INR Fibrinogen dRVVT Confirm Interp Factor V Activity POC ABG pH POC ABG pCO2 POC ABG pO2 ABG pO2 ABG HCO3 ABG Base Excess ABG Hemoglobin Oxyhemoglobin Sodium Potassium Chloride Carbon Dioxide 21 L BUN 85 H Creatinine 1.9 H Glucose 131 H POC Glucose 154 H Lactic Acid Calcium Ionized Calcium Phosphorus Magnesium Direct Bilirubin AST ALT Alkaline Phosphatase Lactate Dehydrogenase Troponin T C-Reactive Protein 19.30 H Total Protein Albumin Prealbumin Triglycerides Cholesterol LDL Cholesterol Direct HDL Cholesterol 25-OH Vitamin D Total PTH Intact Urine pH Urine WBC (Auto) Urine Creatinine Urine Total Protein Fluid Total Protein Vancomycin Trough Rheumatoid Factor Complement C4 Miscellaneous Test Crossmatch 12/05/16 12/05/16 12/05/16 11:43 17:46 23:25 WBC RBC Hgb Hct MCV MCH MCHC RDW Plt Count Lymph % (Auto) [place] % (Auto) Lymph # [place] # Baso # Seg Neutrophils % Seg Neuts % (Manual) Lymphocytes % (Manual) Monocytes % (Manual) Eosinophils % (Manual) Basophils % (Manual) Nucleated RBC % Seg Neutrophils # Seg Neutrophils # Man Lymphocytes # (Manual) Monocytes # (Manual) Eosinophils # (Manual) Basophils # (Manual) PT INR Fibrinogen dRVVT Confirm Interp Factor V Activity POC ABG pH POC ABG pCO2 POC ABG pO2 ABG pO2 ABG HCO3 ABG Base Excess ABG Hemoglobin Oxyhemoglobin Sodium Potassium Chloride Carbon Dioxide BUN Creatinine Glucose POC Glucose 117 H 113 H 111 H Lactic Acid Calcium Ionized Calcium Phosphorus Magnesium Direct Bilirubin AST ALT Alkaline Phosphatase Lactate Dehydrogenase Troponin T C-Reactive Protein Total Protein Albumin Prealbumin Triglycerides Cholesterol LDL Cholesterol Direct HDL Cholesterol 25-OH Vitamin D Total PTH Intact Urine pH Urine WBC (Auto) Urine Creatinine Urine Total Protein Fluid Total Protein Vancomycin Trough Rheumatoid Factor Complement C4 Miscellaneous Test Crossmatch 12/05/16 12/06/16 12/06/16 Unknown 04:58 06:00 WBC RBC Hgb Hct MCV MCH MCHC RDW Plt Count Lymph % (Auto) [place] % (Auto) Lymph # [place] # Baso # Seg Neutrophils % Seg Neuts % (Manual) Lymphocytes % (Manual) Monocytes % (Manual) Eosinophils % (Manual) Basophils % (Manual) Nucleated RBC % Seg Neutrophils # Seg Neutrophils # Man Lymphocytes # (Manual) Monocytes # (Manual) Eosinophils # (Manual) Basophils # (Manual) PT INR Fibrinogen dRVVT Confirm Interp Factor V Activity POC ABG pH POC ABG pCO2 POC ABG pO2 ABG pO2 75.2 L ABG HCO3 ABG Base Excess -3.4 L ABG Hemoglobin 7.4 L Oxyhemoglobin 94.5 L Sodium Potassium Chloride Carbon Dioxide 20 L BUN 99 H Creatinine 2.1 H Glucose 126 H POC Glucose 145 H Lactic Acid Calcium Ionized Calcium Phosphorus 4.80 H Magnesium Direct Bilirubin AST ALT Alkaline Phosphatase Lactate Dehydrogenase Troponin T C-Reactive Protein Total Protein Albumin Prealbumin Triglycerides Cholesterol LDL Cholesterol Direct HDL Cholesterol 25-OH Vitamin D Total PTH Intact Urine pH Urine WBC (Auto) Urine Creatinine Urine Total Protein Fluid Total Protein Vancomycin Trough Rheumatoid Factor Complement C4 Miscellaneous Test Crossmatch 12/06/16 12/06/16 12/06/16 06:46 11:54 17:55 WBC RBC Hgb 8.3 L Hct 26.4 L MCV MCH MCHC RDW Plt Count Lymph % (Auto) [place] % (Auto) Lymph # [place] # Baso # Seg Neutrophils % Seg Neuts % (Manual) Lymphocytes % (Manual) Monocytes % (Manual) Eosinophils % (Manual) Basophils % (Manual) Nucleated RBC % Seg Neutrophils # Seg Neutrophils # Man Lymphocytes # (Manual) Monocytes # (Manual) Eosinophils # (Manual) Basophils # (Manual) PT INR Fibrinogen dRVVT Confirm Interp Factor V Activity POC ABG pH POC ABG pCO2 POC ABG pO2 ABG pO2 ABG HCO3 ABG Base Excess ABG Hemoglobin Oxyhemoglobin Sodium Potassium Chloride Carbon Dioxide BUN Creatinine Glucose POC Glucose 126 H 157 H Lactic Acid Calcium Ionized Calcium Phosphorus Magnesium Direct Bilirubin AST ALT Alkaline Phosphatase Lactate Dehydrogenase Troponin T C-Reactive Protein Total Protein Albumin Prealbumin Triglycerides Cholesterol LDL Cholesterol Direct HDL Cholesterol 25-OH Vitamin D Total PTH Intact Urine pH Urine WBC (Auto) Urine Creatinine Urine Total Protein Fluid Total Protein Vancomycin Trough Rheumatoid Factor Complement C4 Miscellaneous Test Crossmatch 12/06/16 12/07/16 12/07/16 23:59 05:34 06:30 WBC RBC Hgb Hct MCV MCH MCHC RDW Plt Count Lymph % (Auto) [place] % (Auto) Lymph # [place] # Baso # Seg Neutrophils % Seg Neuts % (Manual) Lymphocytes % (Manual) Monocytes % (Manual) Eosinophils % (Manual) Basophils % (Manual) Nucleated RBC % Seg Neutrophils # Seg Neutrophils # Man Lymphocytes # (Manual) Monocytes # (Manual) Eosinophils # (Manual) Basophils # (Manual) PT INR Fibrinogen dRVVT Confirm Interp Factor V Activity POC ABG pH POC ABG pCO2 POC ABG pO2 ABG pO2 ABG HCO3 ABG Base Excess ABG Hemoglobin Oxyhemoglobin Sodium Potassium Chloride Carbon Dioxide BUN 67 H Creatinine 1.4 H Glucose 126 H POC Glucose 129 H 129 H Lactic Acid Calcium Ionized Calcium Phosphorus Magnesium Direct Bilirubin AST ALT Alkaline Phosphatase Lactate Dehydrogenase Troponin T C-Reactive Protein Total Protein Albumin Prealbumin Triglycerides Cholesterol LDL Cholesterol Direct HDL Cholesterol 25-OH Vitamin D Total PTH Intact Urine pH Urine WBC (Auto) Urine Creatinine Urine Total Protein Fluid Total Protein Vancomycin Trough Rheumatoid Factor Complement C4 Miscellaneous Test Crossmatch 12/07/16 12/07/16 12/07/16 06:30 08:00 09:45 WBC 18.8 H RBC 2.52 L Hgb 6.9 L 6.8 L Hct 21.2 L 21.1 L MCV MCH 27 L MCHC RDW 18.0 H Plt Count Lymph % (Auto) [place] % (Auto) 9.9 H Lymph # [place] # 1.9 H Baso # Seg Neutrophils % 71.8 H Seg Neuts % (Manual) Lymphocytes % (Manual) Monocytes % (Manual) Eosinophils % (Manual) Basophils % (Manual) Nucleated RBC % Seg Neutrophils # 13.5 H Seg Neutrophils # Man Lymphocytes # (Manual) Monocytes # (Manual) Eosinophils # (Manual) Basophils # (Manual) PT INR Fibrinogen dRVVT Confirm Interp Factor V Activity POC ABG pH POC ABG pCO2 POC ABG pO2 ABG pO2 ABG HCO3 ABG Base Excess ABG Hemoglobin Oxyhemoglobin Sodium Potassium Chloride Carbon Dioxide BUN Creatinine Glucose POC Glucose Lactic Acid Calcium Ionized Calcium Phosphorus Magnesium Direct Bilirubin AST ALT Alkaline Phosphatase Lactate Dehydrogenase Troponin T C-Reactive Protein Total Protein Albumin Prealbumin Triglycerides Cholesterol LDL Cholesterol Direct HDL Cholesterol 25-OH Vitamin D Total PTH Intact Urine pH Urine WBC (Auto) Urine Creatinine Urine Total Protein Fluid Total Protein Vancomycin Trough Rheumatoid Factor Complement C4 Miscellaneous Test Crossmatch See Detail 12/07/16 12/07/16 12/07/16 11:44 18:19 23:59 WBC RBC Hgb Hct MCV MCH MCHC RDW Plt Count Lymph % (Auto) [place] % (Auto) Lymph # [place] # Baso # Seg Neutrophils % Seg Neuts % (Manual) Lymphocytes % (Manual) Monocytes % (Manual) Eosinophils % (Manual) Basophils % (Manual) Nucleated RBC % Seg Neutrophils # Seg Neutrophils # Man Lymphocytes # (Manual) Monocytes # (Manual) Eosinophils # (Manual) Basophils # (Manual) PT INR Fibrinogen dRVVT Confirm Interp Factor V Activity POC ABG pH POC ABG pCO2 POC ABG pO2 ABG pO2 ABG HCO3 ABG Base Excess ABG Hemoglobin Oxyhemoglobin Sodium Potassium Chloride Carbon Dioxide BUN Creatinine Glucose POC Glucose 137 H 138 H 133 H Lactic Acid Calcium Ionized Calcium Phosphorus Magnesium Direct Bilirubin AST ALT Alkaline Phosphatase Lactate Dehydrogenase Troponin T C-Reactive Protein Total Protein Albumin Prealbumin Triglycerides Cholesterol LDL Cholesterol Direct HDL Cholesterol 25-OH Vitamin D Total PTH Intact Urine pH Urine WBC (Auto) Urine Creatinine Urine Total Protein Fluid Total Protein Vancomycin Trough Rheumatoid Factor Complement C4 Miscellaneous Test Crossmatch 12/08/16 12/08/16 12/08/16 05:25 05:30 05:30 WBC 23.8 H RBC 2.88 L Hgb 8.1 L Hct 24.3 L MCV MCH MCHC RDW 16.7 H Plt Count Lymph % (Auto) [place] % (Auto) Lymph # [place] # Baso # Seg Neutrophils % Seg Neuts % (Manual) 76.0 H Lymphocytes % (Manual) 9.0 L Monocytes % (Manual) 9.0 H Eosinophils % (Manual) Basophils % (Manual) Nucleated RBC % Seg Neutrophils # Seg Neutrophils # Man 18.1 H Lymphocytes # (Manual) Monocytes # (Manual) 2.1 H Eosinophils # (Manual) Basophils # (Manual) PT INR Fibrinogen dRVVT Confirm Interp Factor V Activity POC ABG pH POC ABG pCO2 POC ABG pO2 ABG pO2 ABG HCO3 ABG Base Excess ABG Hemoglobin Oxyhemoglobin Sodium Potassium Chloride Carbon Dioxide 21 L BUN 76 H Creatinine 1.6 H Glucose 133 H POC Glucose 177 H Lactic Acid Calcium Ionized Calcium Phosphorus Magnesium Direct Bilirubin AST ALT Alkaline Phosphatase Lactate Dehydrogenase Troponin T C-Reactive Protein Total Protein Albumin Prealbumin Triglycerides Cholesterol LDL Cholesterol Direct HDL Cholesterol 25-OH Vitamin D Total PTH Intact Urine pH Urine WBC (Auto) Urine Creatinine Urine Total Protein Fluid Total Protein Vancomycin Trough Rheumatoid Factor Complement C4 Miscellaneous Test Crossmatch 12/08/16 12/08/16 12/09/16 11:45 18:00 00:00 WBC RBC Hgb Hct MCV MCH MCHC RDW Plt Count Lymph % (Auto) [place] % (Auto) Lymph # [place] # Baso # Seg Neutrophils % Seg Neuts % (Manual) Lymphocytes % (Manual) Monocytes % (Manual) Eosinophils % (Manual) Basophils % (Manual) Nucleated RBC % Seg Neutrophils # Seg Neutrophils # Man Lymphocytes # (Manual) Monocytes # (Manual) Eosinophils # (Manual) Basophils # (Manual) PT INR Fibrinogen dRVVT Confirm Interp Factor V Activity POC ABG pH POC ABG pCO2 POC ABG pO2 ABG pO2 ABG HCO3 ABG Base Excess ABG Hemoglobin Oxyhemoglobin Sodium Potassium Chloride Carbon Dioxide BUN Creatinine Glucose POC Glucose 163 H 123 H 137 H Lactic Acid Calcium Ionized Calcium Phosphorus Magnesium Direct Bilirubin AST ALT Alkaline Phosphatase Lactate Dehydrogenase Troponin T C-Reactive Protein Total Protein Albumin Prealbumin Triglycerides Cholesterol LDL Cholesterol Direct HDL Cholesterol 25-OH Vitamin D Total PTH Intact Urine pH Urine WBC (Auto) Urine Creatinine Urine Total Protein Fluid Total Protein Vancomycin Trough Rheumatoid Factor Complement C4 Miscellaneous Test Crossmatch 12/09/16 12/09/16 12/09/16 05:34 06:00 06:00 WBC 15.5 H RBC 2.87 L Hgb 8.0 L Hct 24.2 L MCV MCH MCHC RDW 17.2 H Plt Count Lymph % (Auto) [place] % (Auto) 11.6 H Lymph # [place] # 1.8 H Baso # Seg Neutrophils % 70.8 H Seg Neuts % (Manual) Lymphocytes % (Manual) Monocytes % (Manual) Eosinophils % (Manual) Basophils % (Manual) Nucleated RBC % Seg Neutrophils # 11.0 H Seg Neutrophils # Man Lymphocytes # (Manual) Monocytes # (Manual) Eosinophils # (Manual) Basophils # (Manual) PT INR Fibrinogen dRVVT Confirm Interp Factor V Activity POC ABG pH POC ABG pCO2 POC ABG pO2 ABG pO2 ABG HCO3 ABG Base Excess ABG Hemoglobin Oxyhemoglobin Sodium Potassium Chloride Carbon Dioxide BUN 51 H Creatinine Glucose 117 H POC Glucose 136 H Lactic Acid Calcium Ionized Calcium Phosphorus Magnesium Direct Bilirubin AST ALT Alkaline Phosphatase Lactate Dehydrogenase Troponin T C-Reactive Protein Total Protein Albumin Prealbumin Triglycerides Cholesterol LDL Cholesterol Direct HDL Cholesterol 25-OH Vitamin D Total PTH Intact Urine pH Urine WBC (Auto) Urine Creatinine Urine Total Protein Fluid Total Protein Vancomycin Trough Rheumatoid Factor Complement C4 Miscellaneous Test Crossmatch 12/09/16 12/09/16 12/09/16 12:29 17:52 23:10 WBC RBC Hgb Hct MCV MCH MCHC RDW Plt Count Lymph % (Auto) [place] % (Auto) Lymph # [place] # Baso # Seg Neutrophils % Seg Neuts % (Manual) Lymphocytes % (Manual) Monocytes % (Manual) Eosinophils % (Manual) Basophils % (Manual) Nucleated RBC % Seg Neutrophils # Seg Neutrophils # Man Lymphocytes # (Manual) Monocytes # (Manual) Eosinophils # (Manual) Basophils # (Manual) PT INR Fibrinogen dRVVT Confirm Interp Factor V Activity POC ABG pH POC ABG pCO2 POC ABG pO2 ABG pO2 ABG HCO3 ABG Base Excess ABG Hemoglobin Oxyhemoglobin Sodium Potassium Chloride Carbon Dioxide BUN Creatinine Glucose POC Glucose 139 H 140 H 129 H Lactic Acid Calcium Ionized Calcium Phosphorus Magnesium Direct Bilirubin AST ALT Alkaline Phosphatase Lactate Dehydrogenase Troponin T C-Reactive Protein Total Protein Albumin Prealbumin Triglycerides Cholesterol LDL Cholesterol Direct HDL Cholesterol 25-OH Vitamin D Total PTH Intact Urine pH Urine WBC (Auto) Urine Creatinine Urine Total Protein Fluid Total Protein Vancomycin Trough Rheumatoid Factor Complement C4 Miscellaneous Test Crossmatch 12/10/16 12/10/16 12/10/16 05:00 05:00 06:54 WBC 15.7 H RBC 2.87 L Hgb 8.2 L Hct 24.4 L MCV MCH MCHC RDW 17.2 H Plt Count Lymph % (Auto) [place] % (Auto) 8.3 H Lymph # [place] # 1.3 H Baso # Seg Neutrophils % 72.8 H Seg Neuts % (Manual) Lymphocytes % (Manual) Monocytes % (Manual) Eosinophils % (Manual) Basophils % (Manual) Nucleated RBC % Seg Neutrophils # 11.4 H Seg Neutrophils # Man Lymphocytes # (Manual) Monocytes # (Manual) Eosinophils # (Manual) Basophils # (Manual) PT INR Fibrinogen dRVVT Confirm Interp Factor V Activity POC ABG pH POC ABG pCO2 POC ABG pO2 ABG pO2 ABG HCO3 ABG Base Excess ABG Hemoglobin Oxyhemoglobin Sodium Potassium Chloride Carbon Dioxide BUN 64 H Creatinine 1.4 H Glucose 134 H POC Glucose 154 H Lactic Acid Calcium Ionized Calcium Phosphorus Magnesium Direct Bilirubin AST ALT Alkaline Phosphatase Lactate Dehydrogenase Troponin T C-Reactive Protein Total Protein Albumin Prealbumin Triglycerides Cholesterol LDL Cholesterol Direct HDL Cholesterol 25-OH Vitamin D Total PTH Intact Urine pH Urine WBC (Auto) Urine Creatinine Urine Total Protein Fluid Total Protein Vancomycin Trough Rheumatoid Factor Complement C4 Miscellaneous Test Crossmatch 12/10/16 12/10/16 12/10/16 11:58 17:29 23:52 WBC RBC Hgb Hct MCV MCH MCHC RDW Plt Count Lymph % (Auto) [place] % (Auto) Lymph # [place] # Baso # Seg Neutrophils % Seg Neuts % (Manual) Lymphocytes % (Manual) Monocytes % (Manual) Eosinophils % (Manual) Basophils % (Manual) Nucleated RBC % Seg Neutrophils # Seg Neutrophils # Man Lymphocytes # (Manual) Monocytes # (Manual) Eosinophils # (Manual) Basophils # (Manual) PT INR Fibrinogen dRVVT Confirm Interp Factor V Activity POC ABG pH POC ABG pCO2 POC ABG pO2 ABG pO2 ABG HCO3 ABG Base Excess ABG Hemoglobin Oxyhemoglobin Sodium Potassium Chloride Carbon Dioxide BUN Creatinine Glucose POC Glucose 144 H 163 H 125 H Lactic Acid Calcium Ionized Calcium Phosphorus Magnesium Direct Bilirubin AST ALT Alkaline Phosphatase Lactate Dehydrogenase Troponin T C-Reactive Protein Total Protein Albumin Prealbumin Triglycerides Cholesterol LDL Cholesterol Direct HDL Cholesterol 25-OH Vitamin D Total PTH Intact Urine pH Urine WBC (Auto) Urine Creatinine Urine Total Protein Fluid Total Protein Vancomycin Trough Rheumatoid Factor Complement C4 Miscellaneous Test Crossmatch 12/11/16 12/11/16 12/11/16 05:38 06:30 06:30 WBC 14.4 H RBC 2.76 L Hgb 7.7 L Hct 23.4 L MCV MCH MCHC RDW 17.2 H Plt Count Lymph % (Auto) [place] % (Auto) 8.8 H Lymph # [place] # 1.3 H Baso # Seg Neutrophils % 72.5 H Seg Neuts % (Manual) Lymphocytes % (Manual) Monocytes % (Manual) Eosinophils % (Manual) Basophils % (Manual) Nucleated RBC % Seg Neutrophils # 10.5 H Seg Neutrophils # Man Lymphocytes # (Manual) Monocytes # (Manual) Eosinophils # (Manual) Basophils # (Manual) PT INR Fibrinogen dRVVT Confirm Interp Factor V Activity POC ABG pH POC ABG pCO2 POC ABG pO2 ABG pO2 ABG HCO3 ABG Base Excess ABG Hemoglobin Oxyhemoglobin Sodium Potassium Chloride Carbon Dioxide BUN 43 H Creatinine Glucose 124 H POC Glucose 141 H Lactic Acid Calcium 8.3 L Ionized Calcium Phosphorus Magnesium 1.60 L Direct Bilirubin AST ALT Alkaline Phosphatase Lactate Dehydrogenase Troponin T C-Reactive Protein Total Protein Albumin Prealbumin Triglycerides Cholesterol LDL Cholesterol Direct HDL Cholesterol 25-OH Vitamin D Total PTH Intact Urine pH Urine WBC (Auto) Urine Creatinine Urine Total Protein Fluid Total Protein Vancomycin Trough Rheumatoid Factor Complement C4 Miscellaneous Test Crossmatch 12/11/16 12/11/16 12/11/16 11:15 17:59 23:48 WBC RBC Hgb Hct MCV MCH MCHC RDW Plt Count Lymph % (Auto) [place] % (Auto) Lymph # [place] # Baso # Seg Neutrophils % Seg Neuts % (Manual) Lymphocytes % (Manual) Monocytes % (Manual) Eosinophils % (Manual) Basophils % (Manual) Nucleated RBC % Seg Neutrophils # Seg Neutrophils # Man Lymphocytes # (Manual) Monocytes # (Manual) Eosinophils # (Manual) Basophils # (Manual) PT INR Fibrinogen dRVVT Confirm Interp Factor V Activity POC ABG pH POC ABG pCO2 POC ABG pO2 ABG pO2 ABG HCO3 ABG Base Excess ABG Hemoglobin Oxyhemoglobin Sodium Potassium Chloride Carbon Dioxide BUN Creatinine Glucose POC Glucose 188 H 106 H 119 H Lactic Acid Calcium Ionized Calcium Phosphorus Magnesium Direct Bilirubin AST ALT Alkaline Phosphatase Lactate Dehydrogenase Troponin T C-Reactive Protein Total Protein Albumin Prealbumin Triglycerides Cholesterol LDL Cholesterol Direct HDL Cholesterol 25-OH Vitamin D Total PTH Intact Urine pH Urine WBC (Auto) Urine Creatinine Urine Total Protein Fluid Total Protein Vancomycin Trough Rheumatoid Factor Complement C4 Miscellaneous Test Crossmatch 12/12/16 12/12/16 12/12/16 05:00 06:01 12:20 WBC 16.7 H RBC 2.87 L Hgb 8.0 L Hct 24.2 L MCV MCH MCHC RDW 17.6 H Plt Count Lymph % (Auto) [place] % (Auto) Lymph # [place] # 1.2 H Baso # Seg Neutrophils % 75.3 H Seg Neuts % (Manual) Lymphocytes % (Manual) Monocytes % (Manual) Eosinophils % (Manual) Basophils % (Manual) Nucleated RBC % Seg Neutrophils # 12.6 H Seg Neutrophils # Man Lymphocytes # (Manual) Monocytes # (Manual) Eosinophils # (Manual) Basophils # (Manual) PT INR Fibrinogen dRVVT Confirm Interp Factor V Activity POC ABG pH POC ABG pCO2 POC ABG pO2 ABG pO2 ABG HCO3 ABG Base Excess ABG Hemoglobin Oxyhemoglobin Sodium Potassium Chloride Carbon Dioxide BUN Creatinine Glucose POC Glucose 134 H 149 H Lactic Acid Calcium Ionized Calcium Phosphorus Magnesium Direct Bilirubin AST ALT Alkaline Phosphatase Lactate Dehydrogenase Troponin T C-Reactive Protein Total Protein Albumin Prealbumin Triglycerides Cholesterol LDL Cholesterol Direct HDL Cholesterol 25-OH Vitamin D Total PTH Intact Urine pH Urine WBC (Auto) Urine Creatinine Urine Total Protein Fluid Total Protein Vancomycin Trough Rheumatoid Factor Complement C4 Miscellaneous Test Crossmatch 12/12/16 12/12/16 12/12/16 17:38 23:01 Unknown WBC RBC Hgb Hct MCV MCH MCHC RDW Plt Count Lymph % (Auto) [place] % (Auto) Lymph # [place] # Baso # Seg Neutrophils % Seg Neuts % (Manual) Lymphocytes % (Manual) Monocytes % (Manual) Eosinophils % (Manual) Basophils % (Manual) Nucleated RBC % Seg Neutrophils # Seg Neutrophils # Man Lymphocytes # (Manual) Monocytes # (Manual) Eosinophils # (Manual) Basophils # (Manual) PT INR Fibrinogen dRVVT Confirm Interp Factor V Activity POC ABG pH POC ABG pCO2 POC ABG pO2 ABG pO2 ABG HCO3 ABG Base Excess ABG Hemoglobin Oxyhemoglobin Sodium Potassium Chloride Carbon Dioxide BUN 60 H Creatinine 1.3 H Glucose 126 H POC Glucose 127 H 144 H Lactic Acid Calcium Ionized Calcium Phosphorus Magnesium Direct Bilirubin AST ALT Alkaline Phosphatase Lactate Dehydrogenase Troponin T C-Reactive Protein Total Protein Albumin Prealbumin Triglycerides Cholesterol LDL Cholesterol Direct HDL Cholesterol 25-OH Vitamin D Total PTH Intact Urine pH Urine WBC (Auto) Urine Creatinine Urine Total Protein Fluid Total Protein Vancomycin Trough Rheumatoid Factor Complement C4 Miscellaneous Test Crossmatch 12/13/16 12/13/16 12/13/16 04:00 04:00 05:19 WBC 18.7 H RBC 2.89 L Hgb 8.3 L Hct 24.6 L MCV MCH MCHC RDW 17.5 H Plt Count Lymph % (Auto) [place] % (Auto) Lymph # [place] # 1.3 H Baso # Seg Neutrophils % 71.5 H Seg Neuts % (Manual) Lymphocytes % (Manual) Monocytes % (Manual) Eosinophils % (Manual) Basophils % (Manual) Nucleated RBC % Seg Neutrophils # 13.4 H Seg Neutrophils # Man Lymphocytes # (Manual) Monocytes # (Manual) Eosinophils # (Manual) Basophils # (Manual) PT INR Fibrinogen dRVVT Confirm Interp Factor V Activity POC ABG pH POC ABG pCO2 POC ABG pO2 ABG pO2 ABG HCO3 ABG Base Excess ABG Hemoglobin Oxyhemoglobin Sodium Potassium Chloride Carbon Dioxide BUN 73 H Creatinine 1.5 H Glucose 141 H POC Glucose 171 H Lactic Acid Calcium Ionized Calcium Phosphorus Magnesium Direct Bilirubin AST ALT Alkaline Phosphatase Lactate Dehydrogenase Troponin T C-Reactive Protein Total Protein Albumin Prealbumin Triglycerides Cholesterol LDL Cholesterol Direct HDL Cholesterol 25-OH Vitamin D Total PTH Intact Urine pH Urine WBC (Auto) Urine Creatinine Urine Total Protein Fluid Total Protein Vancomycin Trough Rheumatoid Factor Complement C4 Miscellaneous Test Crossmatch 12/13/16 12/13/16 12/14/16 12:28 16:48 00:01 WBC RBC Hgb Hct MCV MCH MCHC RDW Plt Count Lymph % (Auto) [place] % (Auto) Lymph # [place] # Baso # Seg Neutrophils % Seg Neuts % (Manual) Lymphocytes % (Manual) Monocytes % (Manual) Eosinophils % (Manual) Basophils % (Manual) Nucleated RBC % Seg Neutrophils # Seg Neutrophils # Man Lymphocytes # (Manual) Monocytes # (Manual) Eosinophils # (Manual) Basophils # (Manual) PT INR Fibrinogen dRVVT Confirm Interp Factor V Activity POC ABG pH POC ABG pCO2 POC ABG pO2 ABG pO2 ABG HCO3 ABG Base Excess ABG Hemoglobin Oxyhemoglobin Sodium Potassium Chloride Carbon Dioxide BUN Creatinine Glucose POC Glucose 206 H 173 H 139 H Lactic Acid Calcium Ionized Calcium Phosphorus Magnesium Direct Bilirubin AST ALT Alkaline Phosphatase Lactate Dehydrogenase Troponin T C-Reactive Protein Total Protein Albumin Prealbumin Triglycerides Cholesterol LDL Cholesterol Direct HDL Cholesterol 25-OH Vitamin D Total PTH Intact Urine pH Urine WBC (Auto) Urine Creatinine Urine Total Protein Fluid Total Protein Vancomycin Trough Rheumatoid Factor Complement C4 Miscellaneous Test Crossmatch 12/14/16 12/14/16 12/14/16 05:16 06:10 11:17 WBC RBC Hgb Hct MCV MCH MCHC RDW Plt Count Lymph % (Auto) [place] % (Auto) Lymph # [place] # Baso # Seg Neutrophils % Seg Neuts % (Manual) Lymphocytes % (Manual) Monocytes % (Manual) Eosinophils % (Manual) Basophils % (Manual) Nucleated RBC % Seg Neutrophils # Seg Neutrophils # Man Lymphocytes # (Manual) Monocytes # (Manual) Eosinophils # (Manual) Basophils # (Manual) PT INR Fibrinogen dRVVT Confirm Interp Factor V Activity POC ABG pH POC ABG pCO2 POC ABG pO2 ABG pO2 ABG HCO3 ABG Base Excess ABG Hemoglobin Oxyhemoglobin Sodium Potassium Chloride Carbon Dioxide BUN 57 H Creatinine 1.4 H Glucose 135 H POC Glucose 158 H 137 H Lactic Acid Calcium Ionized Calcium Phosphorus Magnesium Direct Bilirubin AST ALT Alkaline Phosphatase Lactate Dehydrogenase Troponin T C-Reactive Protein Total Protein Albumin Prealbumin Triglycerides Cholesterol LDL Cholesterol Direct HDL Cholesterol 25-OH Vitamin D Total PTH Intact Urine pH Urine WBC (Auto) Urine Creatinine Urine Total Protein Fluid Total Protein Vancomycin Trough Rheumatoid Factor Complement C4 Miscellaneous Test Crossmatch 12/14/16 12/14/16 12/15/16 17:52 23:27 04:00 WBC RBC Hgb Hct MCV MCH MCHC RDW Plt Count Lymph % (Auto) [place] % (Auto) Lymph # [place] # Baso # Seg Neutrophils % Seg Neuts % (Manual) Lymphocytes % (Manual) Monocytes % (Manual) Eosinophils % (Manual) Basophils % (Manual) Nucleated RBC % Seg Neutrophils # Seg Neutrophils # Man Lymphocytes # (Manual) Monocytes # (Manual) Eosinophils # (Manual) Basophils # (Manual) PT INR Fibrinogen dRVVT Confirm Interp Factor V Activity POC ABG pH POC ABG pCO2 POC ABG pO2 ABG pO2 ABG HCO3 ABG Base Excess ABG Hemoglobin Oxyhemoglobin Sodium Potassium Chloride 97.9 L Carbon Dioxide BUN 75 H Creatinine 1.6 H Glucose 122 H POC Glucose 149 H 163 H Lactic Acid Calcium Ionized Calcium Phosphorus 5.20 H Magnesium Direct Bilirubin AST ALT Alkaline Phosphatase Lactate Dehydrogenase Troponin T C-Reactive Protein Total Protein Albumin Prealbumin Triglycerides Cholesterol LDL Cholesterol Direct HDL Cholesterol 25-OH Vitamin D Total PTH Intact Urine pH Urine WBC (Auto) Urine Creatinine Urine Total Protein Fluid Total Protein Vancomycin Trough Rheumatoid Factor Complement C4 Miscellaneous Test Crossmatch 12/15/16 12/15/16 12/15/16 05:50 11:24 17:01 WBC RBC Hgb Hct MCV MCH MCHC RDW Plt Count Lymph % (Auto) [place] % (Auto) Lymph # [place] # Baso # Seg Neutrophils % Seg Neuts % (Manual) Lymphocytes % (Manual) Monocytes % (Manual) Eosinophils % (Manual) Basophils % (Manual) Nucleated RBC % Seg Neutrophils # Seg Neutrophils # Man Lymphocytes # (Manual) Monocytes # (Manual) Eosinophils # (Manual) Basophils # (Manual) PT INR Fibrinogen dRVVT Confirm Interp Factor V Activity POC ABG pH POC ABG pCO2 POC ABG pO2 ABG pO2 ABG HCO3 ABG Base Excess ABG Hemoglobin Oxyhemoglobin Sodium Potassium Chloride Carbon Dioxide BUN Creatinine Glucose POC Glucose 150 H 146 H 167 H Lactic Acid Calcium Ionized Calcium Phosphorus Magnesium Direct Bilirubin AST ALT Alkaline Phosphatase Lactate Dehydrogenase Troponin T C-Reactive Protein Total Protein Albumin Prealbumin Triglycerides Cholesterol LDL Cholesterol Direct HDL Cholesterol 25-OH Vitamin D Total PTH Intact Urine pH Urine WBC (Auto) Urine Creatinine Urine Total Protein Fluid Total Protein Vancomycin Trough Rheumatoid Factor Complement C4 Miscellaneous Test Crossmatch 12/15/16 12/16/16 12/16/16 23:34 05:25 11:24 WBC RBC Hgb Hct MCV MCH MCHC RDW Plt Count Lymph % (Auto) [place] % (Auto) Lymph # [place] # Baso # Seg Neutrophils % Seg Neuts % (Manual) Lymphocytes % (Manual) Monocytes % (Manual) Eosinophils % (Manual) Basophils % (Manual) Nucleated RBC % Seg Neutrophils # Seg Neutrophils # Man Lymphocytes # (Manual) Monocytes # (Manual) Eosinophils # (Manual) Basophils # (Manual) PT INR Fibrinogen dRVVT Confirm Interp Factor V Activity POC ABG pH POC ABG pCO2 POC ABG pO2 ABG pO2 ABG HCO3 ABG Base Excess ABG Hemoglobin Oxyhemoglobin Sodium Potassium Chloride Carbon Dioxide BUN Creatinine Glucose POC Glucose 127 H 139 H 165 H Lactic Acid Calcium Ionized Calcium Phosphorus Magnesium Direct Bilirubin AST ALT Alkaline Phosphatase Lactate Dehydrogenase Troponin T C-Reactive Protein Total Protein Albumin Prealbumin Triglycerides Cholesterol LDL Cholesterol Direct HDL Cholesterol 25-OH Vitamin D Total PTH Intact Urine pH Urine WBC (Auto) Urine Creatinine Urine Total Protein Fluid Total Protein Vancomycin Trough Rheumatoid Factor Complement C4 Miscellaneous Test Crossmatch 12/16/16 12/16/16 12/16/16 15:30 16:25 17:31 WBC 17.8 H RBC 2.38 L Hgb 6.4 L Hct 20.3 L MCV MCH 27 L MCHC RDW 17.4 H Plt Count Lymph % (Auto) [place] % (Auto) Lymph # [place] # Baso # Seg Neutrophils % Seg Neuts % (Manual) Lymphocytes % (Manual) Monocytes % (Manual) 10.0 H Eosinophils % (Manual) Basophils % (Manual) Nucleated RBC % Seg Neutrophils # Seg Neutrophils # Man 8.5 H Lymphocytes # (Manual) Monocytes # (Manual) 1.8 H Eosinophils # (Manual) Basophils # (Manual) PT INR Fibrinogen dRVVT Confirm Interp Factor V Activity POC ABG pH POC ABG pCO2 POC ABG pO2 ABG pO2 ABG HCO3 ABG Base Excess ABG Hemoglobin Oxyhemoglobin Sodium Potassium Chloride Carbon Dioxide BUN Creatinine Glucose POC Glucose 176 H Lactic Acid Calcium Ionized Calcium Phosphorus Magnesium Direct Bilirubin AST ALT Alkaline Phosphatase Lactate Dehydrogenase Troponin T C-Reactive Protein Total Protein Albumin Prealbumin Triglycerides Cholesterol LDL Cholesterol Direct HDL Cholesterol 25-OH Vitamin D Total PTH Intact Urine pH Urine WBC (Auto) Urine Creatinine Urine Total Protein Fluid Total Protein Vancomycin Trough Rheumatoid Factor Complement C4 Miscellaneous Test Crossmatch See Detail 12/17/16 12/17/16 12/17/16 00:14 04:00 05:00 WBC 20.0 H RBC 2.99 L Hgb 8.5 L Hct 25.7 L MCV MCH MCHC RDW 17.2 H Plt Count Lymph % (Auto) [place] % (Auto) Lymph # [place] # Baso # Seg Neutrophils % Seg Neuts % (Manual) Lymphocytes % (Manual) Monocytes % (Manual) Eosinophils % (Manual) Basophils % (Manual) Nucleated RBC % Seg Neutrophils # Seg Neutrophils # Man Lymphocytes # (Manual) Monocytes # (Manual) Eosinophils # (Manual) Basophils # (Manual) PT INR Fibrinogen dRVVT Confirm Interp Factor V Activity POC ABG pH POC ABG pCO2 POC ABG pO2 ABG pO2 ABG HCO3 ABG Base Excess ABG Hemoglobin Oxyhemoglobin Sodium Potassium Chloride 97.7 L Carbon Dioxide BUN 73 H Creatinine 1.7 H Glucose 136 H POC Glucose 148 H Lactic Acid Calcium Ionized Calcium Phosphorus 2.20 L Magnesium 2.70 H Direct Bilirubin AST ALT Alkaline Phosphatase Lactate Dehydrogenase Troponin T C-Reactive Protein Total Protein Albumin Prealbumin Triglycerides Cholesterol LDL Cholesterol Direct HDL Cholesterol 25-OH Vitamin D Total PTH Intact Urine pH Urine WBC (Auto) Urine Creatinine Urine Total Protein Fluid Total Protein Vancomycin Trough Rheumatoid Factor Complement C4 Miscellaneous Test Crossmatch 12/17/16 12/17/16 12/17/16 05:39 12:50 16:32 WBC RBC Hgb Hct MCV MCH MCHC RDW Plt Count Lymph % (Auto) [place] % (Auto) Lymph # [place] # Baso # Seg Neutrophils % Seg Neuts % (Manual) Lymphocytes % (Manual) Monocytes % (Manual) Eosinophils % (Manual) Basophils % (Manual) Nucleated RBC % Seg Neutrophils # Seg Neutrophils # Man Lymphocytes # (Manual) Monocytes # (Manual) Eosinophils # (Manual) Basophils # (Manual) PT INR Fibrinogen dRVVT Confirm Interp Factor V Activity POC ABG pH POC ABG pCO2 POC ABG pO2 ABG pO2 ABG HCO3 ABG Base Excess ABG Hemoglobin Oxyhemoglobin Sodium Potassium Chloride Carbon Dioxide BUN Creatinine Glucose POC Glucose 162 H 146 H 169 H Lactic Acid Calcium Ionized Calcium Phosphorus Magnesium Direct Bilirubin AST ALT Alkaline Phosphatase Lactate Dehydrogenase Troponin T C-Reactive Protein Total Protein Albumin Prealbumin Triglycerides Cholesterol LDL Cholesterol Direct HDL Cholesterol 25-OH Vitamin D Total PTH Intact Urine pH Urine WBC (Auto) Urine Creatinine Urine Total Protein Fluid Total Protein Vancomycin Trough Rheumatoid Factor Complement C4 Miscellaneous Test Crossmatch 12/17/16 12/18/16 12/18/16 23:57 05:00 05:32 WBC RBC Hgb Hct MCV MCH MCHC RDW Plt Count Lymph % (Auto) [place] % (Auto) Lymph # [place] # Baso # Seg Neutrophils % Seg Neuts % (Manual) Lymphocytes % (Manual) Monocytes % (Manual) Eosinophils % (Manual) Basophils % (Manual) Nucleated RBC % Seg Neutrophils # Seg Neutrophils # Man Lymphocytes # (Manual) Monocytes # (Manual) Eosinophils # (Manual) Basophils # (Manual) PT INR Fibrinogen dRVVT Confirm Interp Factor V Activity POC ABG pH POC ABG pCO2 POC ABG pO2 ABG pO2 ABG HCO3 ABG Base Excess ABG Hemoglobin Oxyhemoglobin Sodium Potassium Chloride 97.0 L Carbon Dioxide BUN 63 H Creatinine 1.4 H Glucose 174 H POC Glucose 145 H 201 H Lactic Acid Calcium Ionized Calcium Phosphorus 1.70 L D Magnesium Direct Bilirubin AST ALT Alkaline Phosphatase 257 H Lactate Dehydrogenase Troponin T C-Reactive Protein Total Protein 5.9 L Albumin 1.8 L Prealbumin Triglycerides Cholesterol LDL Cholesterol Direct HDL Cholesterol 25-OH Vitamin D Total PTH Intact Urine pH Urine WBC (Auto) Urine Creatinine Urine Total Protein Fluid Total Protein Vancomycin Trough Rheumatoid Factor Complement C4 Miscellaneous Test Crossmatch 12/18/16 12/18/16 12/18/16 11:43 16:52 23:52 WBC RBC Hgb Hct MCV MCH MCHC RDW Plt Count Lymph % (Auto) [place] % (Auto) Lymph # [place] # Baso # Seg Neutrophils % Seg Neuts % (Manual) Lymphocytes % (Manual) Monocytes % (Manual) Eosinophils % (Manual) Basophils % (Manual) Nucleated RBC % Seg Neutrophils # Seg Neutrophils # Man Lymphocytes # (Manual) Monocytes # (Manual) Eosinophils # (Manual) Basophils # (Manual) PT INR Fibrinogen dRVVT Confirm Interp Factor V Activity POC ABG pH POC ABG pCO2 POC ABG pO2 ABG pO2 ABG HCO3 ABG Base Excess ABG Hemoglobin Oxyhemoglobin Sodium Potassium Chloride Carbon Dioxide BUN Creatinine Glucose POC Glucose 177 H 110 H 162 H Lactic Acid Calcium Ionized Calcium Phosphorus Magnesium Direct Bilirubin AST ALT Alkaline Phosphatase Lactate Dehydrogenase Troponin T C-Reactive Protein Total Protein Albumin Prealbumin Triglycerides Cholesterol LDL Cholesterol Direct HDL Cholesterol 25-OH Vitamin D Total PTH Intact Urine pH Urine WBC (Auto) Urine Creatinine Urine Total Protein Fluid Total Protein Vancomycin Trough Rheumatoid Factor Complement C4 Miscellaneous Test Crossmatch 12/19/16 12/19/16 12/19/16 05:02 05:24 09:30 WBC 20.1 H RBC 2.73 L Hgb 7.6 L Hct 23.6 L MCV MCH MCHC RDW 17.6 H Plt Count Lymph % (Auto) [place] % (Auto) Lymph # [place] # Baso # Seg Neutrophils % Seg Neuts % (Manual) Lymphocytes % (Manual) 13.0 L Monocytes % (Manual) Eosinophils % (Manual) Basophils % (Manual) Nucleated RBC % 1.0 H Seg Neutrophils # Seg Neutrophils # Man 12.9 H Lymphocytes # (Manual) Monocytes # (Manual) 1.4 H Eosinophils # (Manual) Basophils # (Manual) 0.2 H PT INR Fibrinogen dRVVT Confirm Interp Factor V Activity POC ABG pH POC ABG pCO2 POC ABG pO2 ABG pO2 ABG HCO3 ABG Base Excess ABG Hemoglobin Oxyhemoglobin Sodium Potassium Chloride 97.8 L Carbon Dioxide BUN 84 H Creatinine 1.6 H Glucose 133 H POC Glucose 134 H Lactic Acid Calcium Ionized Calcium Phosphorus Magnesium Direct Bilirubin AST ALT Alkaline Phosphatase Lactate Dehydrogenase Troponin T C-Reactive Protein Total Protein Albumin Prealbumin Triglycerides Cholesterol LDL Cholesterol Direct HDL Cholesterol 25-OH Vitamin D Total PTH Intact Urine pH Urine WBC (Auto) Urine Creatinine Urine Total Protein Fluid Total Protein Vancomycin Trough Rheumatoid Factor Complement C4 Miscellaneous Test Crossmatch 12/19/16 12/19/16 12/19/16 09:36 11:12 18:29 WBC RBC Hgb Hct MCV MCH MCHC RDW Plt Count Lymph % (Auto) [place] % (Auto) Lymph # [place] # Baso # Seg Neutrophils % Seg Neuts % (Manual) Lymphocytes % (Manual) Monocytes % (Manual) Eosinophils % (Manual) Basophils % (Manual) Nucleated RBC % Seg Neutrophils # Seg Neutrophils # Man Lymphocytes # (Manual) Monocytes # (Manual) Eosinophils # (Manual) Basophils # (Manual) PT INR Fibrinogen dRVVT Confirm Interp Factor V Activity POC ABG pH 7.503 H POC ABG pCO2 30.1 L POC ABG pO2 ABG pO2 ABG HCO3 ABG Base Excess ABG Hemoglobin Oxyhemoglobin Sodium Potassium Chloride Carbon Dioxide BUN Creatinine Glucose POC Glucose 138 H 156 H Lactic Acid Calcium Ionized Calcium Phosphorus Magnesium Direct Bilirubin AST ALT Alkaline Phosphatase Lactate Dehydrogenase Troponin T C-Reactive Protein Total Protein Albumin Prealbumin Triglycerides Cholesterol LDL Cholesterol Direct HDL Cholesterol 25-OH Vitamin D Total PTH Intact Urine pH Urine WBC (Auto) Urine Creatinine Urine Total Protein Fluid Total Protein Vancomycin Trough Rheumatoid Factor Complement C4 Miscellaneous Test Crossmatch 12/20/16 12/20/16 12/20/16 00:03 06:17 07:07 WBC RBC Hgb Hct MCV MCH MCHC RDW Plt Count Lymph % (Auto) [place] % (Auto) Lymph # [place] # Baso # Seg Neutrophils % Seg Neuts % (Manual) Lymphocytes % (Manual) Monocytes % (Manual) Eosinophils % (Manual) Basophils % (Manual) Nucleated RBC % Seg Neutrophils # Seg Neutrophils # Man Lymphocytes # (Manual) Monocytes # (Manual) Eosinophils # (Manual) Basophils # (Manual) PT INR Fibrinogen dRVVT Confirm Interp Factor V Activity POC ABG pH POC ABG pCO2 POC ABG pO2 ABG pO2 ABG HCO3 ABG Base Excess ABG Hemoglobin Oxyhemoglobin Sodium Potassium Chloride 97.1 L Carbon Dioxide 20 L BUN 97 H Creatinine 1.8 H Glucose 153 H POC Glucose 152 H 175 H Lactic Acid Calcium Ionized Calcium Phosphorus Magnesium Direct Bilirubin AST ALT Alkaline Phosphatase Lactate Dehydrogenase Troponin T C-Reactive Protein Total Protein Albumin Prealbumin Triglycerides Cholesterol LDL Cholesterol Direct HDL Cholesterol 25-OH Vitamin D Total PTH Intact Urine pH Urine WBC (Auto) Urine Creatinine Urine Total Protein Fluid Total Protein Vancomycin Trough Rheumatoid Factor Complement C4 Miscellaneous Test Crossmatch 12/20/16 12/20/16 12/20/16 12:00 17:42 23:53 WBC RBC Hgb Hct MCV MCH MCHC RDW Plt Count Lymph % (Auto) [place] % (Auto) Lymph # [place] # Baso # Seg Neutrophils % Seg Neuts % (Manual) Lymphocytes % (Manual) Monocytes % (Manual) Eosinophils % (Manual) Basophils % (Manual) Nucleated RBC % Seg Neutrophils # Seg Neutrophils # Man Lymphocytes # (Manual) Monocytes # (Manual) Eosinophils # (Manual) Basophils # (Manual) PT INR Fibrinogen dRVVT Confirm Interp Factor V Activity POC ABG pH POC ABG pCO2 POC ABG pO2 ABG pO2 ABG HCO3 ABG Base Excess ABG Hemoglobin Oxyhemoglobin Sodium Potassium Chloride Carbon Dioxide BUN Creatinine Glucose POC Glucose 141 H 156 H 132 H Lactic Acid Calcium Ionized Calcium Phosphorus Magnesium Direct Bilirubin AST ALT Alkaline Phosphatase Lactate Dehydrogenase Troponin T C-Reactive Protein Total Protein Albumin Prealbumin Triglycerides Cholesterol LDL Cholesterol Direct HDL Cholesterol 25-OH Vitamin D Total PTH Intact Urine pH Urine WBC (Auto) Urine Creatinine Urine Total Protein Fluid Total Protein Vancomycin Trough Rheumatoid Factor Complement C4 Miscellaneous Test Crossmatch 12/21/16 12/21/16 12/21/16 05:49 08:50 12:19 WBC RBC Hgb Hct MCV MCH MCHC RDW Plt Count Lymph % (Auto) [place] % (Auto) Lymph # [place] # Baso # Seg Neutrophils % Seg Neuts % (Manual) Lymphocytes % (Manual) Monocytes % (Manual) Eosinophils % (Manual) Basophils % (Manual) Nucleated RBC % Seg Neutrophils # Seg Neutrophils # Man Lymphocytes # (Manual) Monocytes # (Manual) Eosinophils # (Manual) Basophils # (Manual) PT INR Fibrinogen dRVVT Confirm Interp Factor V Activity POC ABG pH POC ABG pCO2 POC ABG pO2 ABG pO2 ABG HCO3 ABG Base Excess ABG Hemoglobin Oxyhemoglobin Sodium Potassium 5.2 H D Chloride Carbon Dioxide BUN 63 H Creatinine Glucose 122 H POC Glucose 132 H 136 H Lactic Acid Calcium 8.3 L Ionized Calcium Phosphorus Magnesium Direct Bilirubin AST ALT Alkaline Phosphatase Lactate Dehydrogenase Troponin T C-Reactive Protein Total Protein Albumin Prealbumin Triglycerides Cholesterol LDL Cholesterol Direct HDL Cholesterol 25-OH Vitamin D Total PTH Intact Urine pH Urine WBC (Auto) Urine Creatinine Urine Total Protein Fluid Total Protein Vancomycin Trough Rheumatoid Factor Complement C4 Miscellaneous Test Crossmatch 12/21/16 12/21/16 12/22/16 17:22 23:58 05:49 WBC RBC Hgb Hct MCV MCH MCHC RDW Plt Count Lymph % (Auto) [place] % (Auto) Lymph # [place] # Baso # Seg Neutrophils % Seg Neuts % (Manual) Lymphocytes % (Manual) Monocytes % (Manual) Eosinophils % (Manual) Basophils % (Manual) Nucleated RBC % Seg Neutrophils # Seg Neutrophils # Man Lymphocytes # (Manual) Monocytes # (Manual) Eosinophils # (Manual) Basophils # (Manual) PT INR Fibrinogen dRVVT Confirm Interp Factor V Activity POC ABG pH POC ABG pCO2 POC ABG pO2 ABG pO2 ABG HCO3 ABG Base Excess ABG Hemoglobin Oxyhemoglobin Sodium Potassium Chloride Carbon Dioxide BUN Creatinine Glucose POC Glucose 135 H 149 H 140 H Lactic Acid Calcium Ionized Calcium Phosphorus Magnesium Direct Bilirubin AST ALT Alkaline Phosphatase Lactate Dehydrogenase Troponin T C-Reactive Protein Total Protein Albumin Prealbumin Triglycerides Cholesterol LDL Cholesterol Direct HDL Cholesterol 25-OH Vitamin D Total PTH Intact Urine pH Urine WBC (Auto) Urine Creatinine Urine Total Protein Fluid Total Protein Vancomycin Trough Rheumatoid Factor Complement C4 Miscellaneous Test Crossmatch 12/22/16 12/22/16 12/22/16 06:10 11:17 17:31 WBC RBC Hgb Hct MCV MCH MCHC RDW Plt Count Lymph % (Auto) [place] % (Auto) Lymph # [place] # Baso # Seg Neutrophils % Seg Neuts % (Manual) Lymphocytes % (Manual) Monocytes % (Manual) Eosinophils % (Manual) Basophils % (Manual) Nucleated RBC % Seg Neutrophils # Seg Neutrophils # Man Lymphocytes # (Manual) Monocytes # (Manual) Eosinophils # (Manual) Basophils # (Manual) PT INR Fibrinogen dRVVT Confirm Interp Factor V Activity POC ABG pH POC ABG pCO2 POC ABG pO2 ABG pO2 ABG HCO3 ABG Base Excess ABG Hemoglobin Oxyhemoglobin Sodium Potassium Chloride Carbon Dioxide BUN 76 H Creatinine 1.5 H Glucose 241 H POC Glucose 193 H 148 H Lactic Acid Calcium Ionized Calcium Phosphorus Magnesium Direct Bilirubin AST ALT Alkaline Phosphatase Lactate Dehydrogenase Troponin T C-Reactive Protein Total Protein Albumin Prealbumin Triglycerides Cholesterol LDL Cholesterol Direct HDL Cholesterol 25-OH Vitamin D Total PTH Intact Urine pH Urine WBC (Auto) Urine Creatinine Urine Total Protein Fluid Total Protein Vancomycin Trough Rheumatoid Factor Complement C4 Miscellaneous Test Crossmatch 12/22/16 12/23/16 12/23/16 23:58 05:00 05:26 WBC RBC Hgb Hct MCV MCH MCHC RDW Plt Count Lymph % (Auto) [place] % (Auto) Lymph # [place] # Baso # Seg Neutrophils % Seg Neuts % (Manual) Lymphocytes % (Manual) Monocytes % (Manual) Eosinophils % (Manual) Basophils % (Manual) Nucleated RBC % Seg Neutrophils # Seg Neutrophils # Man Lymphocytes # (Manual) Monocytes # (Manual) Eosinophils # (Manual) Basophils # (Manual) PT INR Fibrinogen dRVVT Confirm Interp Factor V Activity POC ABG pH POC ABG pCO2 POC ABG pO2 ABG pO2 ABG HCO3 ABG Base Excess ABG Hemoglobin Oxyhemoglobin Sodium Potassium Chloride Carbon Dioxide BUN 49 H Creatinine Glucose 143 H POC Glucose 165 H 154 H Lactic Acid Calcium 8.2 L Ionized Calcium Phosphorus Magnesium 1.60 L Direct Bilirubin AST ALT Alkaline Phosphatase Lactate Dehydrogenase Troponin T C-Reactive Protein Total Protein Albumin Prealbumin Triglycerides Cholesterol LDL Cholesterol Direct HDL Cholesterol 25-OH Vitamin D Total PTH Intact Urine pH Urine WBC (Auto) Urine Creatinine Urine Total Protein Fluid Total Protein Vancomycin Trough Rheumatoid Factor Complement C4 Miscellaneous Test Crossmatch 12/23/16 12/23/16 12/24/16 12:35 17:01 00:01 WBC RBC Hgb Hct MCV MCH MCHC RDW Plt Count Lymph % (Auto) [place] % (Auto) Lymph # [place] # Baso # Seg Neutrophils % Seg Neuts % (Manual) Lymphocytes % (Manual) Monocytes % (Manual) Eosinophils % (Manual) Basophils % (Manual) Nucleated RBC % Seg Neutrophils # Seg Neutrophils # Man Lymphocytes # (Manual) Monocytes # (Manual) Eosinophils # (Manual) Basophils # (Manual) PT INR Fibrinogen dRVVT Confirm Interp Factor V Activity POC ABG pH POC ABG pCO2 POC ABG pO2 ABG pO2 ABG HCO3 ABG Base Excess ABG Hemoglobin Oxyhemoglobin Sodium Potassium Chloride Carbon Dioxide BUN Creatinine Glucose POC Glucose 164 H 149 H 135 H Lactic Acid Calcium Ionized Calcium Phosphorus Magnesium Direct Bilirubin AST ALT Alkaline Phosphatase Lactate Dehydrogenase Troponin T C-Reactive Protein Total Protein Albumin Prealbumin Triglycerides Cholesterol LDL Cholesterol Direct HDL Cholesterol 25-OH Vitamin D Total PTH Intact Urine pH Urine WBC (Auto) Urine Creatinine Urine Total Protein Fluid Total Protein Vancomycin Trough Rheumatoid Factor Complement C4 Miscellaneous Test Crossmatch 12/24/16 12/24/16 12/24/16 05:41 07:01 11:38 WBC RBC Hgb Hct MCV MCH MCHC RDW Plt Count Lymph % (Auto) [place] % (Auto) Lymph # [place] # Baso # Seg Neutrophils % Seg Neuts % (Manual) Lymphocytes % (Manual) Monocytes % (Manual) Eosinophils % (Manual) Basophils % (Manual) Nucleated RBC % Seg Neutrophils # Seg Neutrophils # Man Lymphocytes # (Manual) Monocytes # (Manual) Eosinophils # (Manual) Basophils # (Manual) PT INR Fibrinogen dRVVT Confirm Interp Factor V Activity POC ABG pH POC ABG pCO2 POC ABG pO2 ABG pO2 ABG HCO3 ABG Base Excess ABG Hemoglobin Oxyhemoglobin Sodium Potassium Chloride Carbon Dioxide BUN 72 H Creatinine 1.3 H Glucose 130 H POC Glucose 132 H 156 H Lactic Acid Calcium 8.2 L Ionized Calcium Phosphorus Magnesium Direct Bilirubin AST ALT Alkaline Phosphatase Lactate Dehydrogenase Troponin T C-Reactive Protein Total Protein Albumin Prealbumin Triglycerides Cholesterol LDL Cholesterol Direct HDL Cholesterol 25-OH Vitamin D Total PTH Intact Urine pH Urine WBC (Auto) Urine Creatinine Urine Total Protein Fluid Total Protein Vancomycin Trough Rheumatoid Factor Complement C4 Miscellaneous Test Crossmatch 12/24/16 12/25/1612/25/17 17:53 00:23 05:45 WBC RBC Hgb Hct MCV MCH MCHC RDW Plt Count Lymph % (Auto) [place] % (Auto) Lymph # [place] # Baso # Seg Neutrophils % Seg Neuts % (Manual) Lymphocytes % (Manual) Monocytes % (Manual) Eosinophils % (Manual) Basophils % (Manual) Nucleated RBC % Seg Neutrophils # Seg Neutrophils # Man Lymphocytes # (Manual) Monocytes # (Manual) Eosinophils # (Manual) Basophils # (Manual) PT INR Fibrinogen dRVVT Confirm Interp Factor V Activity POC ABG pH POC ABG pCO2 POC ABG pO2 ABG pO2 ABG HCO3 ABG Base Excess ABG Hemoglobin Oxyhemoglobin Sodium 146 H Potassium Chloride Carbon Dioxide BUN 51 H Creatinine Glucose 109 H POC Glucose 169 H 117 H Lactic Acid Calcium Ionized Calcium Phosphorus Magnesium Direct Bilirubin AST ALT Alkaline Phosphatase Lactate Dehydrogenase Troponin T C-Reactive Protein Total Protein Albumin Prealbumin Triglycerides Cholesterol LDL Cholesterol Direct HDL Cholesterol 25-OH Vitamin D Total PTH Intact Urine pH Urine WBC (Auto) Urine Creatinine Urine Total Protein Fluid Total Protein Vancomycin Trough Rheumatoid Factor Complement C4 Miscellaneous Test Crossmatch 12/25/16 12/25/16 12/25/16 06:43 11:29 17:14 WBC RBC Hgb Hct MCV MCH MCHC RDW Plt Count Lymph % (Auto) [place] % (Auto) Lymph # [place] # Baso # Seg Neutrophils % Seg Neuts % (Manual) Lymphocytes % (Manual) Monocytes % (Manual) Eosinophils % (Manual) Basophils % (Manual) Nucleated RBC % Seg Neutrophils # Seg Neutrophils # Man Lymphocytes # (Manual) Monocytes # (Manual) Eosinophils # (Manual) Basophils # (Manual) PT INR Fibrinogen dRVVT Confirm Interp Factor V Activity POC ABG pH POC ABG pCO2 POC ABG pO2 ABG pO2 ABG HCO3 ABG Base Excess ABG Hemoglobin Oxyhemoglobin Sodium Potassium Chloride Carbon Dioxide BUN Creatinine Glucose POC Glucose 117 H 128 H 120 H Lactic Acid Calcium Ionized Calcium Phosphorus Magnesium Direct Bilirubin AST ALT Alkaline Phosphatase Lactate Dehydrogenase Troponin T C-Reactive Protein Total Protein Albumin Prealbumin Triglycerides Cholesterol LDL Cholesterol Direct HDL Cholesterol 25-OH Vitamin D Total PTH Intact Urine pH Urine WBC (Auto) Urine Creatinine Urine Total Protein Fluid Total Protein Vancomycin Trough Rheumatoid Factor Complement C4 Miscellaneous Test Crossmatch 12/25/16 12/26/16 12/26/16 23:54 05:40 05:50 WBC 16.2 H RBC 2.32 L Hgb 6.2 L Hct 20.1 L MCV MCH 27 L MCHC RDW 18.6 H Plt Count Lymph % (Auto) [place] % (Auto) Lymph # [place] # Baso # Seg Neutrophils % Seg Neuts % (Manual) Lymphocytes % (Manual) Monocytes % (Manual) Eosinophils % (Manual) Basophils % (Manual) Nucleated RBC % Seg Neutrophils # Seg Neutrophils # Man Lymphocytes # (Manual) Monocytes # (Manual) Eosinophils # (Manual) Basophils # (Manual) PT INR Fibrinogen dRVVT Confirm Interp Factor V Activity POC ABG pH POC ABG pCO2 POC ABG pO2 ABG pO2 ABG HCO3 ABG Base Excess ABG Hemoglobin Oxyhemoglobin Sodium Potassium Chloride Carbon Dioxide BUN Creatinine Glucose POC Glucose 126 H 132 H Lactic Acid Calcium Ionized Calcium Phosphorus Magnesium Direct Bilirubin AST ALT Alkaline Phosphatase Lactate Dehydrogenase Troponin T C-Reactive Protein Total Protein Albumin Prealbumin Triglycerides Cholesterol LDL Cholesterol Direct HDL Cholesterol 25-OH Vitamin D Total PTH Intact Urine pH Urine WBC (Auto) Urine Creatinine Urine Total Protein Fluid Total Protein Vancomycin Trough Rheumatoid Factor Complement C4 Miscellaneous Test Crossmatch 12/26/16 12/26/16 12/26/16 05:50 12:17 12:33 WBC RBC Hgb Hct MCV MCH MCHC RDW Plt Count Lymph % (Auto) [place] % (Auto) Lymph # [place] # Baso # Seg Neutrophils % Seg Neuts % (Manual) Lymphocytes % (Manual) Monocytes % (Manual) Eosinophils % (Manual) Basophils % (Manual) Nucleated RBC % Seg Neutrophils # Seg Neutrophils # Man Lymphocytes # (Manual) Monocytes # (Manual) Eosinophils # (Manual) Basophils # (Manual) PT INR Fibrinogen dRVVT Confirm Interp Factor V Activity POC ABG pH POC ABG pCO2 POC ABG pO2 ABG pO2 ABG HCO3 ABG Base Excess ABG Hemoglobin Oxyhemoglobin Sodium Potassium Chloride Carbon Dioxide BUN 73 H Creatinine 1.3 H Glucose 113 H POC Glucose 117 H Lactic Acid Calcium Ionized Calcium Phosphorus Magnesium Direct Bilirubin AST ALT Alkaline Phosphatase Lactate Dehydrogenase Troponin T C-Reactive Protein Total Protein Albumin Prealbumin Triglycerides Cholesterol LDL Cholesterol Direct HDL Cholesterol 25-OH Vitamin D Total PTH Intact Urine pH Urine WBC (Auto) Urine Creatinine Urine Total Protein Fluid Total Protein Vancomycin Trough Rheumatoid Factor Complement C4 Miscellaneous Test Crossmatch See Detail 12/26/16 12/26/16 12/27/16 20:00 23:21 05:00 WBC RBC Hgb 8.4 L Hct 26.3 L D MCV MCH MCHC RDW Plt Count Lymph % (Auto) [place] % (Auto) Lymph # [place] # Baso # Seg Neutrophils % Seg Neuts % (Manual) Lymphocytes % (Manual) Monocytes % (Manual) Eosinophils % (Manual) Basophils % (Manual) Nucleated RBC % Seg Neutrophils # Seg Neutrophils # Man Lymphocytes # (Manual) Monocytes # (Manual) Eosinophils # (Manual) Basophils # (Manual) PT INR Fibrinogen dRVVT Confirm Interp Factor V Activity POC ABG pH POC ABG pCO2 POC ABG pO2 ABG pO2 ABG HCO3 ABG Base Excess ABG Hemoglobin Oxyhemoglobin Sodium Potassium Chloride Carbon Dioxide BUN 85 H Creatinine 1.6 H Glucose 118 H POC Glucose 124 H Lactic Acid Calcium Ionized Calcium Phosphorus 4.80 H Magnesium Direct Bilirubin AST ALT Alkaline Phosphatase Lactate Dehydrogenase Troponin T C-Reactive Protein Total Protein Albumin Prealbumin Triglycerides Cholesterol LDL Cholesterol Direct HDL Cholesterol 25-OH Vitamin D Total PTH Intact Urine pH Urine WBC (Auto) Urine Creatinine Urine Total Protein Fluid Total Protein Vancomycin Trough Rheumatoid Factor Complement C4 Miscellaneous Test Crossmatch 12/27/16 12/27/16 12/27/16 05:00 05:35 12:24 WBC RBC Hgb 7.6 L Hct 22.8 L MCV MCH MCHC RDW Plt Count Lymph % (Auto) [place] % (Auto) Lymph # [place] # Baso # Seg Neutrophils % Seg Neuts % (Manual) Lymphocytes % (Manual) Monocytes % (Manual) Eosinophils % (Manual) Basophils % (Manual) Nucleated RBC % Seg Neutrophils # Seg Neutrophils # Man Lymphocytes # (Manual) Monocytes # (Manual) Eosinophils # (Manual) Basophils # (Manual) PT INR Fibrinogen dRVVT Confirm Interp Factor V Activity POC ABG pH POC ABG pCO2 POC ABG pO2 ABG pO2 ABG HCO3 ABG Base Excess ABG Hemoglobin Oxyhemoglobin Sodium Potassium Chloride Carbon Dioxide BUN Creatinine Glucose POC Glucose 115 H 131 H Lactic Acid Calcium Ionized Calcium Phosphorus Magnesium Direct Bilirubin AST ALT Alkaline Phosphatase Lactate Dehydrogenase Troponin T C-Reactive Protein Total Protein Albumin Prealbumin Triglycerides Cholesterol LDL Cholesterol Direct HDL Cholesterol 25-OH Vitamin D Total PTH Intact Urine pH Urine WBC (Auto) Urine Creatinine Urine Total Protein Fluid Total Protein Vancomycin Trough Rheumatoid Factor Complement C4 Miscellaneous Test Crossmatch 12/27/16 12/28/16 12/28/16 17:16 00:18 04:00 WBC RBC Hgb Hct MCV MCH MCHC RDW Plt Count Lymph % (Auto) [place] % (Auto) Lymph # [place] # Baso # Seg Neutrophils % Seg Neuts % (Manual) Lymphocytes % (Manual) Monocytes % (Manual) Eosinophils % (Manual) Basophils % (Manual) Nucleated RBC % Seg Neutrophils # Seg Neutrophils # Man Lymphocytes # (Manual) Monocytes # (Manual) Eosinophils # (Manual) Basophils # (Manual) PT INR Fibrinogen dRVVT Confirm Interp Factor V Activity POC ABG pH POC ABG pCO2 POC ABG pO2 ABG pO2 ABG HCO3 ABG Base Excess ABG Hemoglobin Oxyhemoglobin Sodium Potassium 3.5 L Chloride Carbon Dioxide BUN 57 H Creatinine Glucose 118 H POC Glucose 136 H 120 H Lactic Acid Calcium 8.3 L Ionized Calcium Phosphorus Magnesium Direct Bilirubin AST ALT Alkaline Phosphatase Lactate Dehydrogenase Troponin T C-Reactive Protein Total Protein Albumin Prealbumin Triglycerides Cholesterol LDL Cholesterol Direct HDL Cholesterol 25-OH Vitamin D Total PTH Intact Urine pH Urine WBC (Auto) Urine Creatinine Urine Total Protein Fluid Total Protein Vancomycin Trough Rheumatoid Factor Complement C4 Miscellaneous Test Crossmatch 12/28/16 12/28/16 12/28/16 04:00 05:11 08:30 WBC 17.0 H RBC 2.58 L Hgb 7.1 L Hct 22.0 L MCV MCH MCHC RDW 17.6 H Plt Count Lymph % (Auto) 12.2 L [place] % (Auto) Lymph # [place] # 1.1 H Baso # Seg Neutrophils % 80.5 H Seg Neuts % (Manual) Lymphocytes % (Manual) Monocytes % (Manual) Eosinophils % (Manual) Basophils % (Manual) Nucleated RBC % Seg Neutrophils # 13.7 H Seg Neutrophils # Man Lymphocytes # (Manual) Monocytes # (Manual) Eosinophils # (Manual) Basophils # (Manual) PT 16.1 H INR 1.23 H Fibrinogen dRVVT Confirm Interp Factor V Activity POC ABG pH POC ABG pCO2 POC ABG pO2 ABG pO2 ABG HCO3 ABG Base Excess ABG Hemoglobin Oxyhemoglobin Sodium Potassium Chloride Carbon Dioxide BUN Creatinine Glucose POC Glucose 122 H Lactic Acid Calcium Ionized Calcium Phosphorus Magnesium Direct Bilirubin AST ALT Alkaline Phosphatase Lactate Dehydrogenase Troponin T C-Reactive Protein Total Protein Albumin Prealbumin Triglycerides Cholesterol LDL Cholesterol Direct HDL Cholesterol 25-OH Vitamin D Total PTH Intact Urine pH Urine WBC (Auto) Urine Creatinine Urine Total Protein Fluid Total Protein Vancomycin Trough Rheumatoid Factor Complement C4 Miscellaneous Test Crossmatch 12/28/16 12/28/16 12/28/16 12:27 16:32 23:46 WBC RBC Hgb Hct MCV MCH MCHC RDW Plt Count Lymph % (Auto) [place] % (Auto) Lymph # [place] # Baso # Seg Neutrophils % Seg Neuts % (Manual) Lymphocytes % (Manual) Monocytes % (Manual) Eosinophils % (Manual) Basophils % (Manual) Nucleated RBC % Seg Neutrophils # Seg Neutrophils # Man Lymphocytes # (Manual) Monocytes # (Manual) Eosinophils # (Manual) Basophils # (Manual) PT INR Fibrinogen dRVVT Confirm Interp Factor V Activity POC ABG pH POC ABG pCO2 POC ABG pO2 ABG pO2 ABG HCO3 ABG Base Excess ABG Hemoglobin Oxyhemoglobin Sodium Potassium Chloride Carbon Dioxide BUN Creatinine Glucose POC Glucose 127 H 117 H 108 H Lactic Acid Calcium Ionized Calcium Phosphorus Magnesium Direct Bilirubin AST ALT Alkaline Phosphatase Lactate Dehydrogenase Troponin T C-Reactive Protein Total Protein Albumin Prealbumin Triglycerides Cholesterol LDL Cholesterol Direct HDL Cholesterol 25-OH Vitamin D Total PTH Intact Urine pH Urine WBC (Auto) Urine Creatinine Urine Total Protein Fluid Total Protein Vancomycin Trough Rheumatoid Factor Complement C4 Miscellaneous Test Crossmatch 12/29/16 12/29/16 12/29/16 05:15 05:15 05:32 WBC RBC Hgb Hct MCV MCH MCHC RDW Plt Count Lymph % (Auto) [place] % (Auto) Lymph # [place] # Baso # Seg Neutrophils % Seg Neuts % (Manual) Lymphocytes % (Manual) Monocytes % (Manual) Eosinophils % (Manual) Basophils % (Manual) Nucleated RBC % Seg Neutrophils # Seg Neutrophils # Man Lymphocytes # (Manual) Monocytes # (Manual) Eosinophils # (Manual) Basophils # (Manual) PT INR Fibrinogen dRVVT Confirm Interp Factor V Activity POC ABG pH POC ABG pCO2 POC ABG pO2 ABG pO2 ABG HCO3 ABG Base Excess ABG Hemoglobin Oxyhemoglobin Sodium Potassium Chloride Carbon Dioxide BUN 74 H Creatinine 1.6 H Glucose 111 H POC Glucose 123 H Lactic Acid Calcium Ionized Calcium Phosphorus Magnesium Direct Bilirubin AST ALT Alkaline Phosphatase Lactate Dehydrogenase Troponin T C-Reactive Protein Total Protein Albumin Prealbumin 0.110 L Triglycerides Cholesterol LDL Cholesterol Direct HDL Cholesterol 25-OH Vitamin D Total PTH Intact Urine pH Urine WBC (Auto) Urine Creatinine Urine Total Protein Fluid Total Protein Vancomycin Trough Rheumatoid Factor Complement C4 Miscellaneous Test Crossmatch 11/11/0612/29/16 12/29/16 11:43 13:45 14:00 WBC 13.8 H RBC 2.26 L Hgb 6.3 L Hct 20.4 L MCV MCH MCHC RDW 18.3 H Plt Count Lymph % (Auto) [place] % (Auto) Lymph # [place] # 0.9 H Baso # Seg Neutrophils % 78.6 H Seg Neuts % (Manual) Lymphocytes % (Manual) Monocytes % (Manual) Eosinophils % (Manual) Basophils % (Manual) Nucleated RBC % Seg Neutrophils # 10.8 H Seg Neutrophils # Man Lymphocytes # (Manual) Monocytes # (Manual) Eosinophils # (Manual) Basophils # (Manual) PT INR Fibrinogen dRVVT Confirm Interp Factor V Activity POC ABG pH POC ABG pCO2 POC ABG pO2 ABG pO2 ABG HCO3 ABG Base Excess ABG Hemoglobin Oxyhemoglobin Sodium Potassium Chloride Carbon Dioxide BUN Creatinine Glucose POC Glucose 133 H Lactic Acid Calcium Ionized Calcium Phosphorus Magnesium Direct Bilirubin AST ALT Alkaline Phosphatase Lactate Dehydrogenase Troponin T C-Reactive Protein Total Protein Albumin Prealbumin Triglycerides Cholesterol LDL Cholesterol Direct HDL Cholesterol 25-OH Vitamin D Total PTH Intact Urine pH Urine WBC (Auto) Urine Creatinine Urine Total Protein Fluid Total Protein Vancomycin Trough Rheumatoid Factor Complement C4 Miscellaneous Test Crossmatch See Detail 12/29/16 12/29/16 12/29/16 17:03 23:15 23:22 WBC RBC Hgb 7.3 L Hct 22.3 L MCV MCH MCHC RDW Plt Count Lymph % (Auto) [place] % (Auto) Lymph # [place] # Baso # Seg Neutrophils % Seg Neuts % (Manual) Lymphocytes % (Manual) Monocytes % (Manual) Eosinophils % (Manual) Basophils % (Manual) Nucleated RBC % Seg Neutrophils # Seg Neutrophils # Man Lymphocytes # (Manual) Monocytes # (Manual) Eosinophils # (Manual) Basophils # (Manual) PT INR Fibrinogen dRVVT Confirm Interp Factor V Activity POC ABG pH POC ABG pCO2 POC ABG pO2 ABG pO2 ABG HCO3 ABG Base Excess ABG Hemoglobin Oxyhemoglobin Sodium Potassium Chloride Carbon Dioxide BUN Creatinine Glucose POC Glucose 139 H 120 H Lactic Acid Calcium Ionized Calcium Phosphorus Magnesium Direct Bilirubin AST ALT Alkaline Phosphatase Lactate Dehydrogenase Troponin T C-Reactive Protein Total Protein Albumin Prealbumin Triglycerides Cholesterol LDL Cholesterol Direct HDL Cholesterol 25-OH Vitamin D Total PTH Intact Urine pH Urine WBC (Auto) Urine Creatinine Urine Total Protein Fluid Total Protein Vancomycin Trough Rheumatoid Factor Complement C4 Miscellaneous Test Crossmatch 12/30/16 12/30/16 12/30/16 04:20 04:20 05:43 WBC 15.6 H RBC 2.81 L Hgb 8.0 L Hct 24.0 L MCV MCH MCHC RDW 16.9 H Plt Count Lymph % (Auto) [place] % (Auto) Lymph # [place] # 1.0 H Baso # Seg Neutrophils % 76.2 H Seg Neuts % (Manual) Lymphocytes % (Manual) Monocytes % (Manual) Eosinophils % (Manual) Basophils % (Manual) Nucleated RBC % Seg Neutrophils # 11.9 H Seg Neutrophils # Man Lymphocytes # (Manual) Monocytes # (Manual) Eosinophils # (Manual) Basophils # (Manual) PT INR Fibrinogen dRVVT Confirm Interp Factor V Activity POC ABG pH POC ABG pCO2 POC ABG pO2 ABG pO2 ABG HCO3 ABG Base Excess ABG Hemoglobin Oxyhemoglobin Sodium Potassium Chloride Carbon Dioxide BUN 87 H Creatinine 1.8 H Glucose 119 H POC Glucose 115 H Lactic Acid Calcium Ionized Calcium Phosphorus Magnesium Direct Bilirubin AST ALT Alkaline Phosphatase Lactate Dehydrogenase Troponin T C-Reactive Protein Total Protein Albumin Prealbumin Triglycerides Cholesterol LDL Cholesterol Direct HDL Cholesterol 25-OH Vitamin D Total PTH Intact Urine pH Urine WBC (Auto) Urine Creatinine Urine Total Protein Fluid Total Protein Vancomycin Trough Rheumatoid Factor Complement C4 Miscellaneous Test Crossmatch 12/30/16 12/30/16 12/31/16 17:27 23:21 04:00 WBC RBC Hgb Hct MCV MCH MCHC RDW Plt Count Lymph % (Auto) [place] % (Auto) Lymph # [place] # Baso # Seg Neutrophils % Seg Neuts % (Manual) Lymphocytes % (Manual) Monocytes % (Manual) Eosinophils % (Manual) Basophils % (Manual) Nucleated RBC % Seg Neutrophils # Seg Neutrophils # Man Lymphocytes # (Manual) Monocytes # (Manual) Eosinophils # (Manual) Basophils # (Manual) PT INR Fibrinogen dRVVT Confirm Interp Factor V Activity POC ABG pH POC ABG pCO2 POC ABG pO2 ABG pO2 ABG HCO3 ABG Base Excess ABG Hemoglobin Oxyhemoglobin Sodium Potassium Chloride Carbon Dioxide BUN 59 H Creatinine Glucose 298 H POC Glucose 144 H 125 H Lactic Acid Calcium Ionized Calcium Phosphorus Magnesium Direct Bilirubin AST ALT Alkaline Phosphatase Lactate Dehydrogenase Troponin T C-Reactive Protein Total Protein Albumin Prealbumin Triglycerides Cholesterol LDL Cholesterol Direct HDL Cholesterol 25-OH Vitamin D Total PTH Intact Urine pH Urine WBC (Auto) Urine Creatinine Urine Total Protein Fluid Total Protein Vancomycin Trough Rheumatoid Factor Complement C4 Miscellaneous Test Crossmatch 12/31/16 12/31/16 12/31/16 05:11 12:18 18:17 WBC RBC Hgb Hct MCV MCH MCHC RDW Plt Count Lymph % (Auto) [place] % (Auto) Lymph # [place] # Baso # Seg Neutrophils % Seg Neuts % (Manual) Lymphocytes % (Manual) Monocytes % (Manual) Eosinophils % (Manual) Basophils % (Manual) Nucleated RBC % Seg Neutrophils # Seg Neutrophils # Man Lymphocytes # (Manual) Monocytes # (Manual) Eosinophils # (Manual) Basophils # (Manual) PT INR Fibrinogen dRVVT Confirm Interp Factor V Activity POC ABG pH POC ABG pCO2 POC ABG pO2 ABG pO2 ABG HCO3 ABG Base Excess ABG Hemoglobin Oxyhemoglobin Sodium Potassium Chloride Carbon Dioxide BUN Creatinine Glucose POC Glucose 167 H 125 H 133 H Lactic Acid Calcium Ionized Calcium Phosphorus Magnesium Direct Bilirubin AST ALT Alkaline Phosphatase Lactate Dehydrogenase Troponin T C-Reactive Protein Total Protein Albumin Prealbumin Triglycerides Cholesterol LDL Cholesterol Direct HDL Cholesterol 25-OH Vitamin D Total PTH Intact Urine pH Urine WBC (Auto) Urine Creatinine Urine Total Protein Fluid Total Protein Vancomycin Trough Rheumatoid Factor Complement C4 Miscellaneous Test Crossmatch 12/31/16 01/01/17 01/01/17 23:55 05:00 05:12 WBC RBC Hgb Hct MCV MCH MCHC RDW Plt Count Lymph % (Auto) [place] % (Auto) Lymph # [place] # Baso # Seg Neutrophils % Seg Neuts % (Manual) Lymphocytes % (Manual) Monocytes % (Manual) Eosinophils % (Manual) Basophils % (Manual) Nucleated RBC % Seg Neutrophils # Seg Neutrophils # Man Lymphocytes # (Manual) Monocytes # (Manual) Eosinophils # (Manual) Basophils # (Manual) PT INR Fibrinogen dRVVT Confirm Interp Factor V Activity POC ABG pH POC ABG pCO2 POC ABG pO2 ABG pO2 ABG HCO3 ABG Base Excess ABG Hemoglobin Oxyhemoglobin Sodium Potassium Chloride Carbon Dioxide BUN 76 H Creatinine 1.5 H Glucose 109 H POC Glucose 129 H 129 H Lactic Acid Calcium Ionized Calcium Phosphorus Magnesium Direct Bilirubin AST ALT Alkaline Phosphatase 536 H Lactate Dehydrogenase Troponin T C-Reactive Protein Total Protein Albumin 1.5 L Prealbumin Triglycerides Cholesterol LDL Cholesterol Direct HDL Cholesterol 25-OH Vitamin D Total PTH Intact Urine pH Urine WBC (Auto) Urine Creatinine Urine Total Protein Fluid Total Protein Vancomycin Trough Rheumatoid Factor Complement C4 Miscellaneous Test Crossmatch 01/01/17 01/01/17 01/01/17 12:25 17:01 23:32 WBC RBC Hgb Hct MCV MCH MCHC RDW Plt Count Lymph % (Auto) [place] % (Auto) Lymph # [place] # Baso # Seg Neutrophils % Seg Neuts % (Manual) Lymphocytes % (Manual) Monocytes % (Manual) Eosinophils % (Manual) Basophils % (Manual) Nucleated RBC % Seg Neutrophils # Seg Neutrophils # Man Lymphocytes # (Manual) Monocytes # (Manual) Eosinophils # (Manual) Basophils # (Manual) PT INR Fibrinogen dRVVT Confirm Interp Factor V Activity POC ABG pH POC ABG pCO2 POC ABG pO2 ABG pO2 ABG HCO3 ABG Base Excess ABG Hemoglobin Oxyhemoglobin Sodium Potassium Chloride Carbon Dioxide BUN Creatinine Glucose POC Glucose 140 H 142 H 112 H Lactic Acid Calcium Ionized Calcium Phosphorus Magnesium Direct Bilirubin AST ALT Alkaline Phosphatase Lactate Dehydrogenase Troponin T C-Reactive Protein Total Protein Albumin Prealbumin Triglycerides Cholesterol LDL Cholesterol Direct HDL Cholesterol 25-OH Vitamin D Total PTH Intact Urine pH Urine WBC (Auto) Urine Creatinine Urine Total Protein Fluid Total Protein Vancomycin Trough Rheumatoid Factor Complement C4 Miscellaneous Test Crossmatch 01/02/17 01/02/17 01/02/17 04:56 06:00 11:37 WBC RBC Hgb Hct MCV MCH MCHC RDW Plt Count Lymph % (Auto) [place] % (Auto) Lymph # [place] # Baso # Seg Neutrophils % Seg Neuts % (Manual) Lymphocytes % (Manual) Monocytes % (Manual) Eosinophils % (Manual) Basophils % (Manual) Nucleated RBC % Seg Neutrophils # Seg Neutrophils # Man Lymphocytes # (Manual) Monocytes # (Manual) Eosinophils # (Manual) Basophils # (Manual) PT INR Fibrinogen dRVVT Confirm Interp Factor V Activity POC ABG pH POC ABG pCO2 POC ABG pO2 ABG pO2 ABG HCO3 ABG Base Excess ABG Hemoglobin Oxyhemoglobin Sodium Potassium Chloride Carbon Dioxide BUN 88 H Creatinine 1.7 H Glucose 113 H POC Glucose 136 H 200 H Lactic Acid Calcium Ionized Calcium Phosphorus Magnesium Direct Bilirubin AST ALT Alkaline Phosphatase Lactate Dehydrogenase Troponin T C-Reactive Protein Total Protein Albumin Prealbumin Triglycerides Cholesterol LDL Cholesterol Direct HDL Cholesterol 25-OH Vitamin D Total PTH Intact Urine pH Urine WBC (Auto) Urine Creatinine Urine Total Protein Fluid Total Protein Vancomycin Trough Rheumatoid Factor Complement C4 Miscellaneous Test Crossmatch 01/02/17 01/02/17 01/03/17 17:42 22:52 04:54 WBC RBC Hgb Hct MCV MCH MCHC RDW Plt Count Lymph % (Auto) [place] % (Auto) Lymph # [place] # Baso # Seg Neutrophils % Seg Neuts % (Manual) Lymphocytes % (Manual) Monocytes % (Manual) Eosinophils % (Manual) Basophils % (Manual) Nucleated RBC % Seg Neutrophils # Seg Neutrophils # Man Lymphocytes # (Manual) Monocytes # (Manual) Eosinophils # (Manual) Basophils # (Manual) PT INR Fibrinogen dRVVT Confirm Interp Factor V Activity POC ABG pH POC ABG pCO2 POC ABG pO2 ABG pO2 ABG HCO3 ABG Base Excess ABG Hemoglobin Oxyhemoglobin Sodium Potassium Chloride Carbon Dioxide BUN Creatinine Glucose POC Glucose 112 H 133 H 111 H Lactic Acid Calcium Ionized Calcium Phosphorus Magnesium Direct Bilirubin AST ALT Alkaline Phosphatase Lactate Dehydrogenase Troponin T C-Reactive Protein Total Protein Albumin Prealbumin Triglycerides Cholesterol LDL Cholesterol Direct HDL Cholesterol 25-OH Vitamin D Total PTH Intact Urine pH Urine WBC (Auto) Urine Creatinine Urine Total Protein Fluid Total Protein Vancomycin Trough Rheumatoid Factor Complement C4 Miscellaneous Test Crossmatch 01/03/17 01/03/17 01/03/17 05:00 05:00 14:02 WBC 11.2 H RBC 2.56 L Hgb 7.2 L Hct 22.3 L MCV MCH MCHC RDW 17.3 H Plt Count Lymph % (Auto) [place] % (Auto) 10.0 H Lymph # [place] # 1.1 H Baso # Seg Neutrophils % 70.5 H Seg Neuts % (Manual) Lymphocytes % (Manual) Monocytes % (Manual) Eosinophils % (Manual) Basophils % (Manual) Nucleated RBC % Seg Neutrophils # 7.9 H Seg Neutrophils # Man Lymphocytes # (Manual) Monocytes # (Manual) Eosinophils # (Manual) Basophils # (Manual) PT INR Fibrinogen dRVVT Confirm Interp Factor V Activity POC ABG pH POC ABG pCO2 POC ABG pO2 ABG pO2 ABG HCO3 ABG Base Excess ABG Hemoglobin Oxyhemoglobin Sodium Potassium Chloride Carbon Dioxide BUN 60 H Creatinine 1.3 H Glucose 110 H POC Glucose 119 H Lactic Acid Calcium Ionized Calcium Phosphorus Magnesium Direct Bilirubin AST ALT Alkaline Phosphatase Lactate Dehydrogenase Troponin T C-Reactive Protein Total Protein Albumin Prealbumin Triglycerides Cholesterol LDL Cholesterol Direct HDL Cholesterol 25-OH Vitamin D Total PTH Intact Urine pH Urine WBC (Auto) Urine Creatinine Urine Total Protein Fluid Total Protein Vancomycin Trough Rheumatoid Factor Complement C4 Miscellaneous Test Crossmatch 01/03/17 01/03/17 01/04/17 18:13 23:40 05:57 WBC RBC Hgb Hct MCV MCH MCHC RDW Plt Count Lymph % (Auto) [place] % (Auto) Lymph # [place] # Baso # Seg Neutrophils % Seg Neuts % (Manual) Lymphocytes % (Manual) Monocytes % (Manual) Eosinophils % (Manual) Basophils % (Manual) Nucleated RBC % Seg Neutrophils # Seg Neutrophils # Man Lymphocytes # (Manual) Monocytes # (Manual) Eosinophils # (Manual) Basophils # (Manual) PT INR Fibrinogen dRVVT Confirm Interp Factor V Activity POC ABG pH POC ABG pCO2 POC ABG pO2 ABG pO2 ABG HCO3 ABG Base Excess ABG Hemoglobin Oxyhemoglobin Sodium Potassium Chloride Carbon Dioxide BUN Creatinine Glucose POC Glucose 107 H 129 H 111 H Lactic Acid Calcium Ionized Calcium Phosphorus Magnesium Direct Bilirubin AST ALT Alkaline Phosphatase Lactate Dehydrogenase Troponin T C-Reactive Protein Total Protein Albumin Prealbumin Triglycerides Cholesterol LDL Cholesterol Direct HDL Cholesterol 25-OH Vitamin D Total PTH Intact Urine pH Urine WBC (Auto) Urine Creatinine Urine Total Protein Fluid Total Protein Vancomycin Trough Rheumatoid Factor Complement C4 Miscellaneous Test Crossmatch 01/04/17 01/04/17 01/04/17 12:46 15:27 17:11 WBC RBC Hgb Hct MCV MCH MCHC RDW Plt Count Lymph % (Auto) [place] % (Auto) Lymph # [place] # Baso # Seg Neutrophils % Seg Neuts % (Manual) Lymphocytes % (Manual) Monocytes % (Manual) Eosinophils % (Manual) Basophils % (Manual) Nucleated RBC % Seg Neutrophils # Seg Neutrophils # Man Lymphocytes # (Manual) Monocytes # (Manual) Eosinophils # (Manual) Basophils # (Manual) PT INR Fibrinogen dRVVT Confirm Interp Factor V Activity POC ABG pH POC ABG pCO2 POC ABG pO2 ABG pO2 ABG HCO3 ABG Base Excess ABG Hemoglobin Oxyhemoglobin Sodium Potassium Chloride Carbon Dioxide BUN 43 H Creatinine Glucose 124 H POC Glucose 159 H 125 H Lactic Acid Calcium 8.0 L Ionized Calcium Phosphorus 2.10 L Magnesium Direct Bilirubin AST ALT Alkaline Phosphatase Lactate Dehydrogenase Troponin T C-Reactive Protein Total Protein Albumin Prealbumin Triglycerides Cholesterol LDL Cholesterol Direct HDL Cholesterol 25-OH Vitamin D Total PTH Intact Urine pH Urine WBC (Auto) Urine Creatinine Urine Total Protein Fluid Total Protein Vancomycin Trough Rheumatoid Factor Complement C4 Miscellaneous Test Crossmatch 01/04/17 01/05/17 01/05/17 23:31 04:00 05:46 WBC RBC Hgb Hct MCV MCH MCHC RDW Plt Count Lymph % (Auto) [place] % (Auto) Lymph # [place] # Baso # Seg Neutrophils % Seg Neuts % (Manual) Lymphocytes % (Manual) Monocytes % (Manual) Eosinophils % (Manual) Basophils % (Manual) Nucleated RBC % Seg Neutrophils # Seg Neutrophils # Man Lymphocytes # (Manual) Monocytes # (Manual) Eosinophils # (Manual) Basophils # (Manual) PT INR Fibrinogen dRVVT Confirm Interp Factor V Activity POC ABG pH POC ABG pCO2 POC ABG pO2 ABG pO2 ABG HCO3 ABG Base Excess ABG Hemoglobin Oxyhemoglobin Sodium Potassium Chloride Carbon Dioxide BUN 52 H Creatinine 1.3 H Glucose 113 H POC Glucose 123 H 118 H Lactic Acid Calcium Ionized Calcium Phosphorus 2.40 L Magnesium Direct Bilirubin AST ALT Alkaline Phosphatase Lactate Dehydrogenase Troponin T C-Reactive Protein Total Protein Albumin Prealbumin Triglycerides Cholesterol LDL Cholesterol Direct HDL Cholesterol 25-OH Vitamin D Total PTH Intact Urine pH Urine WBC (Auto) Urine Creatinine Urine Total Protein Fluid Total Protein Vancomycin Trough Rheumatoid Factor Complement C4 Miscellaneous Test Crossmatch 01/05/17 01/05/17 01/05/17 11:41 17:48 23:27 WBC RBC Hgb Hct MCV MCH MCHC RDW Plt Count Lymph % (Auto) [place] % (Auto) Lymph # [place] # Baso # Seg Neutrophils % Seg Neuts % (Manual) Lymphocytes % (Manual) Monocytes % (Manual) Eosinophils % (Manual) Basophils % (Manual) Nucleated RBC % Seg Neutrophils # Seg Neutrophils # Man Lymphocytes # (Manual) Monocytes # (Manual) Eosinophils # (Manual) Basophils # (Manual) PT INR Fibrinogen dRVVT Confirm Interp Factor V Activity POC ABG pH POC ABG pCO2 POC ABG pO2 ABG pO2 ABG HCO3 ABG Base Excess ABG Hemoglobin Oxyhemoglobin Sodium Potassium Chloride Carbon Dioxide BUN Creatinine Glucose POC Glucose 163 H 142 H 155 H Lactic Acid Calcium Ionized Calcium Phosphorus Magnesium Direct Bilirubin AST ALT Alkaline Phosphatase Lactate Dehydrogenase Troponin T C-Reactive Protein Total Protein Albumin Prealbumin Triglycerides Cholesterol LDL Cholesterol Direct HDL Cholesterol 25-OH Vitamin D Total PTH Intact Urine pH Urine WBC (Auto) Urine Creatinine Urine Total Protein Fluid Total Protein Vancomycin Trough Rheumatoid Factor Complement C4 Miscellaneous Test Crossmatch 01/06/17 01/06/1701/06/17 05:20 07:35 11:18 WBC RBC Hgb Hct MCV MCH MCHC RDW Plt Count Lymph % (Auto) [place] % (Auto) Lymph # [place] # Baso # Seg Neutrophils % Seg Neuts % (Manual) Lymphocytes % (Manual) Monocytes % (Manual) Eosinophils % (Manual) Basophils % (Manual) Nucleated RBC % Seg Neutrophils # Seg Neutrophils # Man Lymphocytes # (Manual) Monocytes # (Manual) Eosinophils # (Manual) Basophils # (Manual) PT INR Fibrinogen dRVVT Confirm Interp Factor V Activity POC ABG pH POC ABG pCO2 POC ABG pO2 ABG pO2 ABG HCO3 ABG Base Excess ABG Hemoglobin Oxyhemoglobin Sodium Potassium Chloride Carbon Dioxide BUN 74 H Creatinine 1.6 H Glucose 135 H POC Glucose 108 H 149 H Lactic Acid Calcium Ionized Calcium Phosphorus Magnesium Direct Bilirubin AST ALT Alkaline Phosphatase Lactate Dehydrogenase Troponin T C-Reactive Protein Total Protein Albumin Prealbumin Triglycerides Cholesterol LDL Cholesterol Direct HDL Cholesterol 25-OH Vitamin D Total PTH Intact Urine pH Urine WBC (Auto) Urine Creatinine Urine Total Protein Fluid Total Protein Vancomycin Trough Rheumatoid Factor Complement C4 Miscellaneous Test Crossmatch 01/06/17 01/07/17 01/07/17 17:17 00:23 05:31 WBC RBC Hgb Hct MCV MCH MCHC RDW Plt Count Lymph % (Auto) [place] % (Auto) Lymph # [place] # Baso # Seg Neutrophils % Seg Neuts % (Manual) Lymphocytes % (Manual) Monocytes % (Manual) Eosinophils % (Manual) Basophils % (Manual) Nucleated RBC % Seg Neutrophils # Seg Neutrophils # Man Lymphocytes # (Manual) Monocytes # (Manual) Eosinophils # (Manual) Basophils # (Manual) PT INR Fibrinogen dRVVT Confirm Interp Factor V Activity POC ABG pH POC ABG pCO2 POC ABG pO2 ABG pO2 ABG HCO3 ABG Base Excess ABG Hemoglobin Oxyhemoglobin Sodium Potassium Chloride Carbon Dioxide BUN Creatinine Glucose POC Glucose 146 H 165 H 153 H Lactic Acid Calcium Ionized Calcium Phosphorus Magnesium Direct Bilirubin AST ALT Alkaline Phosphatase Lactate Dehydrogenase Troponin T C-Reactive Protein Total Protein Albumin Prealbumin Triglycerides Cholesterol LDL Cholesterol Direct HDL Cholesterol 25-OH Vitamin D Total PTH Intact Urine pH Urine WBC (Auto) Urine Creatinine Urine Total Protein Fluid Total Protein Vancomycin Trough Rheumatoid Factor Complement C4 Miscellaneous Test Crossmatch 01/07/17 01/07/17 01/07/17 06:00 11:39 17:11 WBC RBC Hgb Hct MCV MCH MCHC RDW Plt Count Lymph % (Auto) [place] % (Auto) Lymph # [place] # Baso # Seg Neutrophils % Seg Neuts % (Manual) Lymphocytes % (Manual) Monocytes % (Manual) Eosinophils % (Manual) Basophils % (Manual) Nucleated RBC % Seg Neutrophils # Seg Neutrophils # Man Lymphocytes # (Manual) Monocytes # (Manual) Eosinophils # (Manual) Basophils # (Manual) PT INR Fibrinogen dRVVT Confirm Interp Factor V Activity POC ABG pH POC ABG pCO2 POC ABG pO2 ABG pO2 ABG HCO3 ABG Base Excess ABG Hemoglobin Oxyhemoglobin Sodium Potassium Chloride Carbon Dioxide BUN 42 H Creatinine Glucose 175 H POC Glucose 163 H 163 H Lactic Acid Calcium Ionized Calcium Phosphorus 2.40 L D Magnesium Direct Bilirubin AST ALT Alkaline Phosphatase Lactate Dehydrogenase Troponin T C-Reactive Protein Total Protein Albumin Prealbumin Triglycerides Cholesterol LDL Cholesterol Direct HDL Cholesterol 25-OH Vitamin D Total PTH Intact Urine pH Urine WBC (Auto) Urine Creatinine Urine Total Protein Fluid Total Protein Vancomycin Trough Rheumatoid Factor Complement C4 Miscellaneous Test Crossmatch 01/07/17 01/08/17 01/08/17 23:40 05:00 05:00 WBC 27.4 H RBC 2.27 L Hgb 6.1 L Hct 20.4 L MCV MCH 27 L MCHC RDW 17.8 H Plt Count Lymph % (Auto) [place] % (Auto) Lymph # [place] # Baso # Seg Neutrophils % Seg Neuts % (Manual) Lymphocytes % (Manual) Monocytes % (Manual) Eosinophils % (Manual) Basophils % (Manual) Nucleated RBC % Seg Neutrophils # Seg Neutrophils # Man Lymphocytes # (Manual) Monocytes # (Manual) Eosinophils # (Manual) Basophils # (Manual) PT INR Fibrinogen dRVVT Confirm Interp Factor V Activity POC ABG pH POC ABG pCO2 POC ABG pO2 ABG pO2 ABG HCO3 ABG Base Excess ABG Hemoglobin Oxyhemoglobin Sodium Potassium Chloride Carbon Dioxide 16 L D BUN 62 H Creatinine 1.6 H D Glucose 103 H POC Glucose 135 H Lactic Acid Calcium Ionized Calcium Phosphorus Magnesium Direct Bilirubin AST ALT Alkaline Phosphatase Lactate Dehydrogenase Troponin T C-Reactive Protein Total Protein Albumin Prealbumin Triglycerides Cholesterol LDL Cholesterol Direct HDL Cholesterol 25-OH Vitamin D Total PTH Intact Urine pH Urine WBC (Auto) Urine Creatinine Urine Total Protein Fluid Total Protein Vancomycin Trough Rheumatoid Factor Complement C4 Miscellaneous Test Crossmatch 01/08/17 01/08/1717 05:25 10:37 10:37 WBC RBC Hgb Hct MCV MCH MCHC RDW Plt Count Lymph % (Auto) [place] % (Auto) Lymph # [place] # Baso # Seg Neutrophils % Seg Neuts % (Manual) Lymphocytes % (Manual) Monocytes % (Manual) Eosinophils % (Manual) Basophils % (Manual) Nucleated RBC % Seg Neutrophils # Seg Neutrophils # Man Lymphocytes # (Manual) Monocytes # (Manual) Eosinophils # (Manual) Basophils # (Manual) PT INR Fibrinogen dRVVT Confirm Interp Factor V Activity POC ABG pH POC ABG pCO2 POC ABG pO2 ABG pO2 ABG HCO3 ABG Base Excess ABG Hemoglobin Oxyhemoglobin Sodium Potassium Chloride Carbon Dioxide BUN Creatinine Glucose POC Glucose 106 H Lactic Acid Calcium Ionized Calcium Phosphorus Magnesium Direct Bilirubin AST ALT Alkaline Phosphatase Lactate Dehydrogenase Troponin T C-Reactive Protein 24.40 H Total Protein Albumin Prealbumin Triglycerides Cholesterol LDL Cholesterol Direct HDL Cholesterol 25-OH Vitamin D Total PTH Intact Urine pH Urine WBC (Auto) Urine Creatinine Urine Total Protein Fluid Total Protein Vancomycin Trough Rheumatoid Factor Complement C4 Miscellaneous Test Crossmatch See Detail 01/08/17 01/08/17 01/08/17 10:37 11:33 15:15 WBC RBC Hgb Hct MCV MCH MCHC RDW Plt Count Lymph % (Auto) [place] % (Auto) Lymph # [place] # Baso # Seg Neutrophils % Seg Neuts % (Manual) Lymphocytes % (Manual) Monocytes % (Manual) Eosinophils % (Manual) Basophils % (Manual) Nucleated RBC % Seg Neutrophils # Seg Neutrophils # Man Lymphocytes # (Manual) Monocytes # (Manual) Eosinophils # (Manual) Basophils # (Manual) PT INR Fibrinogen dRVVT Confirm Interp Factor V Activity POC ABG pH POC ABG pCO2 POC ABG pO2 ABG pO2 ABG HCO3 ABG Base Excess ABG Hemoglobin Oxyhemoglobin Sodium Potassium Chloride Carbon Dioxide BUN Creatinine Glucose POC Glucose 157 H Lactic Acid 9.70 H* 9.10 H* Calcium Ionized Calcium Phosphorus Magnesium Direct Bilirubin AST ALT Alkaline Phosphatase Lactate Dehydrogenase Troponin T C-Reactive Protein Total Protein Albumin Prealbumin Triglycerides Cholesterol LDL Cholesterol Direct HDL Cholesterol 25-OH Vitamin D Total PTH Intact Urine pH Urine WBC (Auto) Urine Creatinine Urine Total Protein Fluid Total Protein Vancomycin Trough Rheumatoid Factor Complement C4 Miscellaneous Test Crossmatch 01/08/17 01/08/17 01/09/17 17:19 23:12 04:40 WBC RBC Hgb Hct MCV MCH MCHC RDW Plt Count Lymph % (Auto) [place] % (Auto) Lymph # [place] # Baso # Seg Neutrophils % Seg Neuts % (Manual) Lymphocytes % (Manual) Monocytes % (Manual) Eosinophils % (Manual) Basophils % (Manual) Nucleated RBC % Seg Neutrophils # Seg Neutrophils # Man Lymphocytes # (Manual) Monocytes # (Manual) Eosinophils # (Manual) Basophils # (Manual) PT INR Fibrinogen dRVVT Confirm Interp Factor V Activity POC ABG pH POC ABG pCO2 POC ABG pO2 ABG pO2 ABG HCO3 ABG Base Excess ABG Hemoglobin Oxyhemoglobin Sodium 147 H Potassium Chloride Carbon Dioxide BUN 82 H Creatinine 1.8 H Glucose 137 H POC Glucose 164 H 157 H Lactic Acid Calcium Ionized Calcium Phosphorus Magnesium Direct Bilirubin AST ALT Alkaline Phosphatase Lactate Dehydrogenase Troponin T C-Reactive Protein Total Protein Albumin Prealbumin Triglycerides Cholesterol LDL Cholesterol Direct HDL Cholesterol 25-OH Vitamin D Total PTH Intact Urine pH Urine WBC (Auto) Urine Creatinine Urine Total Protein Fluid Total Protein Vancomycin Trough Rheumatoid Factor Complement C4 Miscellaneous Test Crossmatch 01/09/17 01/09/17 01/09/17 05:42 08:22 10:57 WBC RBC Hgb Hct MCV MCH MCHC RDW Plt Count Lymph % (Auto) [place] % (Auto) Lymph # [place] # Baso # Seg Neutrophils % Seg Neuts % (Manual) Lymphocytes % (Manual) Monocytes % (Manual) Eosinophils % (Manual) Basophils % (Manual) Nucleated RBC % Seg Neutrophils # Seg Neutrophils # Man Lymphocytes # (Manual) Monocytes # (Manual) Eosinophils # (Manual) Basophils # (Manual) PT INR Fibrinogen dRVVT Confirm Interp Factor V Activity POC ABG pH POC ABG pCO2 POC ABG pO2 ABG pO2 ABG HCO3 ABG Base Excess ABG Hemoglobin Oxyhemoglobin Sodium Potassium Chloride Carbon Dioxide BUN Creatinine Glucose POC Glucose 156 H 122 H Lactic Acid 2.30 H* Calcium Ionized Calcium Phosphorus Magnesium Direct Bilirubin AST ALT Alkaline Phosphatase Lactate Dehydrogenase Troponin T C-Reactive Protein Total Protein Albumin Prealbumin Triglycerides Cholesterol LDL Cholesterol Direct HDL Cholesterol 25-OH Vitamin D Total PTH Intact Urine pH Urine WBC (Auto) Urine Creatinine Urine Total Protein Fluid Total Protein Vancomycin Trough Rheumatoid Factor Complement C4 Miscellaneous Test Crossmatch 01/09/17 01/09/17 01/09/17 13:30 17:14 18:45 WBC RBC Hgb Hct MCV MCH MCHC RDW Plt Count Lymph % (Auto) [place] % (Auto) Lymph # [place] # Baso # Seg Neutrophils % Seg Neuts % (Manual) Lymphocytes % (Manual) Monocytes % (Manual) Eosinophils % (Manual) Basophils % (Manual) Nucleated RBC % Seg Neutrophils # Seg Neutrophils # Man Lymphocytes # (Manual) Monocytes # (Manual) Eosinophils # (Manual) Basophils # (Manual) PT INR Fibrinogen dRVVT Confirm Interp Factor V Activity POC ABG pH POC ABG pCO2 POC ABG pO2 ABG pO2 ABG HCO3 ABG Base Excess ABG Hemoglobin Oxyhemoglobin Sodium Potassium Chloride Carbon Dioxide BUN Creatinine Glucose POC Glucose 127 H Lactic Acid Calcium Ionized Calcium Phosphorus Magnesium Direct Bilirubin AST ALT Alkaline Phosphatase Lactate Dehydrogenase Troponin T C-Reactive Protein 24.70 H Total Protein Albumin Prealbumin Triglycerides Cholesterol LDL Cholesterol Direct HDL Cholesterol 25-OH Vitamin D Total PTH Intact Urine pH Urine WBC (Auto) Urine Creatinine Urine Total Protein Fluid Total Protein Vancomycin Trough Rheumatoid Factor Complement C4 Miscellaneous Test Flexitest 1 H Crossmatch 01/10/17 01/10/17 01/10/17 01:21 04:00 04:00 WBC 18.1 H RBC 3.22 L Hgb 8.8 L Hct 27.0 L D MCV MCH 27 L MCHC RDW 17.0 H Plt Count Lymph % (Auto) [place] % (Auto) Lymph # [place] # Baso # Seg Neutrophils % Seg Neuts % (Manual) Lymphocytes % (Manual) Monocytes % (Manual) Eosinophils % (Manual) Basophils % (Manual) Nucleated RBC % Seg Neutrophils # Seg Neutrophils # Man Lymphocytes # (Manual) Monocytes # (Manual) Eosinophils # (Manual) Basophils # (Manual) PT INR Fibrinogen dRVVT Confirm Interp Factor V Activity POC ABG pH POC ABG pCO2 POC ABG pO2 ABG pO2 ABG HCO3 ABG Base Excess ABG Hemoglobin Oxyhemoglobin Sodium Potassium Chloride Carbon Dioxide BUN 59 H Creatinine 1.3 H Glucose 122 H POC Glucose 160 H Lactic Acid Calcium Ionized Calcium Phosphorus Magnesium Direct Bilirubin AST ALT Alkaline Phosphatase Lactate Dehydrogenase Troponin T C-Reactive Protein Total Protein Albumin Prealbumin Triglycerides Cholesterol LDL Cholesterol Direct HDL Cholesterol 25-OH Vitamin D Total PTH Intact Urine pH Urine WBC (Auto) Urine Creatinine Urine Total Protein Fluid Total Protein Vancomycin Trough Rheumatoid Factor Complement C4 Miscellaneous Test Crossmatch 01/10/17 01/10/17 01/10/17 05:36 12:14 17:55 WBC RBC Hgb Hct MCV MCH MCHC RDW Plt Count Lymph % (Auto) [place] % (Auto) Lymph # [place] # Baso # Seg Neutrophils % Seg Neuts % (Manual) Lymphocytes % (Manual) Monocytes % (Manual) Eosinophils % (Manual) Basophils % (Manual) Nucleated RBC % Seg Neutrophils # Seg Neutrophils # Man Lymphocytes # (Manual) Monocytes # (Manual) Eosinophils # (Manual) Basophils # (Manual) PT INR Fibrinogen dRVVT Confirm Interp Factor V Activity POC ABG pH POC ABG pCO2 POC ABG pO2 ABG pO2 ABG HCO3 ABG Base Excess ABG Hemoglobin Oxyhemoglobin Sodium Potassium Chloride Carbon Dioxide BUN Creatinine Glucose POC Glucose 163 H 120 H 144 H Lactic Acid Calcium Ionized Calcium Phosphorus Magnesium Direct Bilirubin AST ALT Alkaline Phosphatase Lactate Dehydrogenase Troponin T C-Reactive Protein Total Protein Albumin Prealbumin Triglycerides Cholesterol LDL Cholesterol Direct HDL Cholesterol 25-OH Vitamin D Total PTH Intact Urine pH Urine WBC (Auto) Urine Creatinine Urine Total Protein Fluid Total Protein Vancomycin Trough Rheumatoid Factor Complement C4 Miscellaneous Test Crossmatch 01/11/17 01/11/17 01/11/17 00:09 04:00 04:00 WBC 15.8 H RBC 3.04 L Hgb 8.2 L Hct 25.5 L MCV MCH 27 L MCHC RDW 17.3 H Plt Count Lymph % (Auto) [place] % (Auto) Lymph # [place] # Baso # Seg Neutrophils % Seg Neuts % (Manual) Lymphocytes % (Manual) Monocytes % (Manual) Eosinophils % (Manual) Basophils % (Manual) Nucleated RBC % Seg Neutrophils # Seg Neutrophils # Man Lymphocytes # (Manual) Monocytes # (Manual) Eosinophils # (Manual) Basophils # (Manual) PT INR Fibrinogen dRVVT Confirm Interp Factor V Activity POC ABG pH POC ABG pCO2 POC ABG pO2 ABG pO2 ABG HCO3 ABG Base Excess ABG Hemoglobin Oxyhemoglobin Sodium Potassium Chloride Carbon Dioxide BUN 78 H Creatinine 1.6 H Glucose 109 H POC Glucose 122 H Lactic Acid Calcium Ionized Calcium Phosphorus Magnesium Direct Bilirubin AST ALT Alkaline Phosphatase Lactate Dehydrogenase Troponin T C-Reactive Protein Total Protein Albumin Prealbumin Triglycerides Cholesterol LDL Cholesterol Direct HDL Cholesterol 25-OH Vitamin D Total PTH Intact Urine pH Urine WBC (Auto) Urine Creatinine Urine Total Protein Fluid Total Protein Vancomycin Trough Rheumatoid Factor Complement C4 Miscellaneous Test Crossmatch 01/11/17 01/11/17 01/11/17 12:46 18:23 23:42 WBC RBC Hgb Hct MCV MCH MCHC RDW Plt Count Lymph % (Auto) [place] % (Auto) Lymph # [place] # Baso # Seg Neutrophils % Seg Neuts % (Manual) Lymphocytes % (Manual) Monocytes % (Manual) Eosinophils % (Manual) Basophils % (Manual) Nucleated RBC % Seg Neutrophils # Seg Neutrophils # Man Lymphocytes # (Manual) Monocytes # (Manual) Eosinophils # (Manual) Basophils # (Manual) PT INR Fibrinogen dRVVT Confirm Interp Factor V Activity POC ABG pH POC ABG pCO2 POC ABG pO2 ABG pO2 ABG HCO3 ABG Base Excess ABG Hemoglobin Oxyhemoglobin Sodium Potassium Chloride Carbon Dioxide BUN Creatinine Glucose POC Glucose 148 H 125 H 124 H Lactic Acid Calcium Ionized Calcium Phosphorus Magnesium Direct Bilirubin AST ALT Alkaline Phosphatase Lactate Dehydrogenase Troponin T C-Reactive Protein Total Protein Albumin Prealbumin Triglycerides Cholesterol LDL Cholesterol Direct HDL Cholesterol 25-OH Vitamin D Total PTH Intact Urine pH Urine WBC (Auto) Urine Creatinine Urine Total Protein Fluid Total Protein Vancomycin Trough Rheumatoid Factor Complement C4 Miscellaneous Test Crossmatch 01/12/17 01/12/17 01/12/17 04:30 04:30 05:47 WBC 15.8 H RBC 3.31 L Hgb 8.9 L Hct 27.9 L MCV MCH 27 L MCHC RDW 17.4 H Plt Count Lymph % (Auto) [place] % (Auto) Lymph # [place] # Baso # Seg Neutrophils % Seg Neuts % (Manual) Lymphocytes % (Manual) Monocytes % (Manual) Eosinophils % (Manual) Basophils % (Manual) Nucleated RBC % Seg Neutrophils # Seg Neutrophils # Man Lymphocytes # (Manual) Monocytes # (Manual) Eosinophils # (Manual) Basophils # (Manual) PT INR Fibrinogen dRVVT Confirm Interp Factor V Activity POC ABG pH POC ABG pCO2 POC ABG pO2 ABG pO2 ABG HCO3 ABG Base Excess ABG Hemoglobin Oxyhemoglobin Sodium Potassium Chloride Carbon Dioxide BUN 57 H Creatinine Glucose 121 H POC Glucose 110 H Lactic Acid Calcium Ionized Calcium Phosphorus 2.10 L Magnesium Direct Bilirubin AST ALT Alkaline Phosphatase Lactate Dehydrogenase Troponin T C-Reactive Protein Total Protein Albumin Prealbumin Triglycerides Cholesterol LDL Cholesterol Direct HDL Cholesterol 25-OH Vitamin D Total PTH Intact Urine pH Urine WBC (Auto) Urine Creatinine Urine Total Protein Fluid Total Protein Vancomycin Trough Rheumatoid Factor Complement C4 Miscellaneous Test Crossmatch 01/12/17 01/12/17 01/12/17 11:35 17:45 23:14 WBC RBC Hgb Hct MCV MCH MCHC RDW Plt Count Lymph % (Auto) [place] % (Auto) Lymph # [place] # Baso # Seg Neutrophils % Seg Neuts % (Manual) Lymphocytes % (Manual) Monocytes % (Manual) Eosinophils % (Manual) Basophils % (Manual) Nucleated RBC % Seg Neutrophils # Seg Neutrophils # Man Lymphocytes # (Manual) Monocytes # (Manual) Eosinophils # (Manual) Basophils # (Manual) PT INR Fibrinogen dRVVT Confirm Interp Factor V Activity POC ABG pH POC ABG pCO2 POC ABG pO2 ABG pO2 ABG HCO3 ABG Base Excess ABG Hemoglobin Oxyhemoglobin Sodium Potassium Chloride Carbon Dioxide BUN Creatinine Glucose POC Glucose 146 H 117 H 123 H Lactic Acid Calcium Ionized Calcium Phosphorus Magnesium Direct Bilirubin AST ALT Alkaline Phosphatase Lactate Dehydrogenase Troponin T C-Reactive Protein Total Protein Albumin Prealbumin Triglycerides Cholesterol LDL Cholesterol Direct HDL Cholesterol 25-OH Vitamin D Total PTH Intact Urine pH Urine WBC (Auto) Urine Creatinine Urine Total Protein Fluid Total Protein Vancomycin Trough Rheumatoid Factor Complement C4 Miscellaneous Test Crossmatch 01/13/17 01/13/17 01/13/17 05:32 06:00 12:10 WBC RBC Hgb Hct MCV MCH MCHC RDW Plt Count Lymph % (Auto) [place] % (Auto) Lymph # [place] # Baso # Seg Neutrophils % Seg Neuts % (Manual) Lymphocytes % (Manual) Monocytes % (Manual) Eosinophils % (Manual) Basophils % (Manual) Nucleated RBC % Seg Neutrophils # Seg Neutrophils # Man Lymphocytes # (Manual) Monocytes # (Manual) Eosinophils # (Manual) Basophils # (Manual) PT INR Fibrinogen dRVVT Confirm Interp Factor V Activity POC ABG pH POC ABG pCO2 POC ABG pO2 ABG pO2 ABG HCO3 ABG Base Excess ABG Hemoglobin Oxyhemoglobin Sodium Potassium Chloride Carbon Dioxide BUN 80 H Creatinine 1.4 H Glucose 106 H POC Glucose 106 H Lactic Acid Calcium Ionized Calcium Phosphorus Magnesium Direct Bilirubin AST ALT Alkaline Phosphatase Lactate Dehydrogenase Troponin T C-Reactive Protein Total Protein Albumin Prealbumin Triglycerides Cholesterol LDL Cholesterol Direct HDL Cholesterol 25-OH Vitamin D Total PTH Intact Urine pH Urine WBC (Auto) Urine Creatinine Urine Total Protein Fluid Total Protein 3.0 L Vancomycin Trough Rheumatoid Factor Complement C4 Miscellaneous Test Crossmatch 01/13/17 01/13/17 01/13/17 12:17 15:50 17:30 WBC RBC Hgb Hct MCV MCH MCHC RDW Plt Count Lymph % (Auto) [place] % (Auto) Lymph # [place] # Baso # Seg Neutrophils % Seg Neuts % (Manual) Lymphocytes % (Manual) Monocytes % (Manual) Eosinophils % (Manual) Basophils % (Manual) Nucleated RBC % Seg Neutrophils # Seg Neutrophils # Man Lymphocytes # (Manual) Monocytes # (Manual) Eosinophils # (Manual) Basophils # (Manual) PT 15.4 H INR 1.16 H Fibrinogen dRVVT Confirm Interp Factor V Activity POC ABG pH POC ABG pCO2 POC ABG pO2 ABG pO2 ABG HCO3 ABG Base Excess ABG Hemoglobin Oxyhemoglobin Sodium Potassium Chloride Carbon Dioxide BUN Creatinine Glucose POC Glucose 168 H 110 H Lactic Acid Calcium Ionized Calcium Phosphorus Magnesium Direct Bilirubin AST ALT Alkaline Phosphatase Lactate Dehydrogenase Troponin T C-Reactive Protein Total Protein Albumin Prealbumin Triglycerides Cholesterol LDL Cholesterol Direct HDL Cholesterol 25-OH Vitamin D Total PTH Intact Urine pH Urine WBC (Auto) Urine Creatinine Urine Total Protein Fluid Total Protein Vancomycin Trough Rheumatoid Factor Complement C4 Miscellaneous Test Crossmatch 01/13/17 01/14/17 01/14/17 23:42 05:24 05:30 WBC RBC Hgb Hct MCV MCH MCHC RDW Plt Count Lymph % (Auto) [place] % (Auto) Lymph # [place] # Baso # Seg Neutrophils % Seg Neuts % (Manual) Lymphocytes % (Manual) Monocytes % (Manual) Eosinophils % (Manual) Basophils % (Manual) Nucleated RBC % Seg Neutrophils # Seg Neutrophils # Man Lymphocytes # (Manual) Monocytes # (Manual) Eosinophils # (Manual) Basophils # (Manual) PT INR Fibrinogen dRVVT Confirm Interp Factor V Activity POC ABG pH POC ABG pCO2 POC ABG pO2 ABG pO2 ABG HCO3 ABG Base Excess ABG Hemoglobin Oxyhemoglobin Sodium Potassium Chloride Carbon Dioxide BUN 58 H Creatinine Glucose 114 H POC Glucose 155 H 121 H Lactic Acid Calcium Ionized Calcium Phosphorus Magnesium Direct Bilirubin AST ALT Alkaline Phosphatase Lactate Dehydrogenase Troponin T C-Reactive Protein Total Protein Albumin Prealbumin Triglycerides Cholesterol LDL Cholesterol Direct HDL Cholesterol 25-OH Vitamin D Total PTH Intact Urine pH Urine WBC (Auto) Urine Creatinine Urine Total Protein Fluid Total Protein Vancomycin Trough Rheumatoid Factor Complement C4 Miscellaneous Test Crossmatch 01/14/17 01/14/17 01/15/17 12:48 17:36 00:15 WBC RBC Hgb Hct MCV MCH MCHC RDW Plt Count Lymph % (Auto) [place] % (Auto) Lymph # [place] # Baso # Seg Neutrophils % Seg Neuts % (Manual) Lymphocytes % (Manual) Monocytes % (Manual) Eosinophils % (Manual) Basophils % (Manual) Nucleated RBC % Seg Neutrophils # Seg Neutrophils # Man Lymphocytes # (Manual) Monocytes # (Manual) Eosinophils # (Manual) Basophils # (Manual) PT INR Fibrinogen dRVVT Confirm Interp Factor V Activity POC ABG pH POC ABG pCO2 POC ABG pO2 ABG pO2 ABG HCO3 ABG Base Excess ABG Hemoglobin Oxyhemoglobin Sodium Potassium Chloride Carbon Dioxide BUN Creatinine Glucose POC Glucose 130 H 135 H 132 H Lactic Acid Calcium Ionized Calcium Phosphorus Magnesium Direct Bilirubin AST ALT Alkaline Phosphatase Lactate Dehydrogenase Troponin T C-Reactive Protein Total Protein Albumin Prealbumin Triglycerides Cholesterol LDL Cholesterol Direct HDL Cholesterol 25-OH Vitamin D Total PTH Intact Urine pH Urine WBC (Auto) Urine Creatinine Urine Total Protein Fluid Total Protein Vancomycin Trough Rheumatoid Factor Complement C4 Miscellaneous Test Crossmatch 01/15/17 01/15/17 01/15/17 05:01 11:55 12:45 WBC 16.2 H RBC 3.00 L Hgb 8.1 L Hct 25.4 L MCV MCH 27 L MCHC RDW 17.6 H Plt Count Lymph % (Auto) 11.7 L [place] % (Auto) 7.8 H Lymph # [place] # 1.3 H Baso # Seg Neutrophils % 80.1 H Seg Neuts % (Manual) Lymphocytes % (Manual) Monocytes % (Manual) Eosinophils % (Manual) Basophils % (Manual) Nucleated RBC % Seg Neutrophils # 13.0 H Seg Neutrophils # Man Lymphocytes # (Manual) Monocytes # (Manual) Eosinophils # (Manual) Basophils # (Manual) PT INR Fibrinogen dRVVT Confirm Interp Factor V Activity POC ABG pH POC ABG pCO2 POC ABG pO2 ABG pO2 ABG HCO3 ABG Base Excess ABG Hemoglobin Oxyhemoglobin Sodium Potassium Chloride Carbon Dioxide BUN Creatinine Glucose POC Glucose 126 H 125 H Lactic Acid Calcium Ionized Calcium Phosphorus Magnesium Direct Bilirubin AST ALT Alkaline Phosphatase Lactate Dehydrogenase Troponin T C-Reactive Protein Total Protein Albumin Prealbumin Triglycerides Cholesterol LDL Cholesterol Direct HDL Cholesterol 25-OH Vitamin D Total PTH Intact Urine pH Urine WBC (Auto) Urine Creatinine Urine Total Protein Fluid Total Protein Vancomycin Trough Rheumatoid Factor Complement C4 Miscellaneous Test Crossmatch 01/15/17 01/15/17 01/15/17 12:45 17:31 23:39 WBC RBC Hgb Hct MCV MCH MCHC RDW Plt Count Lymph % (Auto) [place] % (Auto) Lymph # [place] # Baso # Seg Neutrophils % Seg Neuts % (Manual) Lymphocytes % (Manual) Monocytes % (Manual) Eosinophils % (Manual) Basophils % (Manual) Nucleated RBC % Seg Neutrophils # Seg Neutrophils # Man Lymphocytes # (Manual) Monocytes # (Manual) Eosinophils # (Manual) Basophils # (Manual) PT INR Fibrinogen dRVVT Confirm Interp Factor V Activity POC ABG pH POC ABG pCO2 POC ABG pO2 ABG pO2 ABG HCO3 ABG Base Excess ABG Hemoglobin Oxyhemoglobin Sodium 136 L Potassium Chloride Carbon Dioxide BUN 87 H Creatinine 1.7 H Glucose 108 H POC Glucose 129 H 112 H Lactic Acid Calcium Ionized Calcium Phosphorus Magnesium Direct Bilirubin AST ALT Alkaline Phosphatase Lactate Dehydrogenase Troponin T C-Reactive Protein Total Protein Albumin Prealbumin Triglycerides Cholesterol LDL Cholesterol Direct HDL Cholesterol 25-OH Vitamin D Total PTH Intact Urine pH Urine WBC (Auto) Urine Creatinine Urine Total Protein Fluid Total Protein Vancomycin Trough Rheumatoid Factor Complement C4 Miscellaneous Test Crossmatch 01/16/17 01/16/17 01/16/17 05:23 11:42 12:32 WBC RBC Hgb Hct MCV MCH MCHC RDW Plt Count Lymph % (Auto) [place] % (Auto) Lymph # [place] # Baso # Seg Neutrophils % Seg Neuts % (Manual) Lymphocytes % (Manual) Monocytes % (Manual) Eosinophils % (Manual) Basophils % (Manual) Nucleated RBC % Seg Neutrophils # Seg Neutrophils # Man Lymphocytes # (Manual) Monocytes # (Manual) Eosinophils # (Manual) Basophils # (Manual) PT INR Fibrinogen dRVVT Confirm Interp Factor V Activity POC ABG pH 7.499 H POC ABG pCO2 30.9 L POC ABG pO2 51 L ABG pO2 ABG HCO3 ABG Base Excess ABG Hemoglobin Oxyhemoglobin Sodium Potassium Chloride Carbon Dioxide BUN Creatinine Glucose POC Glucose 118 H 133 H Lactic Acid Calcium Ionized Calcium Phosphorus Magnesium Direct Bilirubin AST ALT Alkaline Phosphatase Lactate Dehydrogenase Troponin T C-Reactive Protein Total Protein Albumin Prealbumin Triglycerides Cholesterol LDL Cholesterol Direct HDL Cholesterol 25-OH Vitamin D Total PTH Intact Urine pH Urine WBC (Auto) Urine Creatinine Urine Total Protein Fluid Total Protein Vancomycin Trough Rheumatoid Factor Complement C4 Miscellaneous Test Crossmatch 01/16/17 01/16/17 01/16/17 17:52 23:57 Unknown WBC RBC Hgb Hct MCV MCH MCHC RDW Plt Count Lymph % (Auto) [place] % (Auto) Lymph # [place] # Baso # Seg Neutrophils % Seg Neuts % (Manual) Lymphocytes % (Manual) Monocytes % (Manual) Eosinophils % (Manual) Basophils % (Manual) Nucleated RBC % Seg Neutrophils # Seg Neutrophils # Man Lymphocytes # (Manual) Monocytes # (Manual) Eosinophils # (Manual) Basophils # (Manual) PT INR Fibrinogen dRVVT Confirm Interp Factor V Activity POC ABG pH POC ABG pCO2 POC ABG pO2 ABG pO2 ABG HCO3 ABG Base Excess ABG Hemoglobin Oxyhemoglobin Sodium 135 L Potassium Chloride Carbon Dioxide BUN 101 H Creatinine 1.8 H Glucose 117 H POC Glucose 130 H 143 H Lactic Acid Calcium Ionized Calcium Phosphorus 5.80 H Magnesium Direct Bilirubin AST ALT Alkaline Phosphatase Lactate Dehydrogenase Troponin T C-Reactive Protein Total Protein Albumin Prealbumin Triglycerides Cholesterol LDL Cholesterol Direct HDL Cholesterol 25-OH Vitamin D Total PTH Intact Urine pH Urine WBC (Auto) Urine Creatinine Urine Total Protein Fluid Total Protein Vancomycin Trough Rheumatoid Factor Complement C4 Miscellaneous Test Crossmatch 01/17/17 01/17/17 01/17/17 05:30 05:46 11:49 WBC RBC Hgb Hct MCV MCH MCHC RDW Plt Count Lymph % (Auto) [place] % (Auto) Lymph # [place] # Baso # Seg Neutrophils % Seg Neuts % (Manual) Lymphocytes % (Manual) Monocytes % (Manual) Eosinophils % (Manual) Basophils % (Manual) Nucleated RBC % Seg Neutrophils # Seg Neutrophils # Man Lymphocytes # (Manual) Monocytes # (Manual) Eosinophils # (Manual) Basophils # (Manual) PT INR Fibrinogen dRVVT Confirm Interp Factor V Activity POC ABG pH POC ABG pCO2 POC ABG pO2 ABG pO2 ABG HCO3 ABG Base Excess ABG Hemoglobin Oxyhemoglobin Sodium 134 L Potassium Chloride 95.8 L Carbon Dioxide BUN 66 H Creatinine 1.3 H Glucose 138 H POC Glucose 147 H 124 H Lactic Acid Calcium Ionized Calcium Phosphorus Magnesium Direct Bilirubin AST ALT Alkaline Phosphatase 254 H Lactate Dehydrogenase Troponin T C-Reactive Protein Total Protein Albumin 1.3 L Prealbumin Triglycerides Cholesterol LDL Cholesterol Direct HDL Cholesterol 25-OH Vitamin D Total PTH Intact Urine pH Urine WBC (Auto) Urine Creatinine Urine Total Protein Fluid Total Protein Vancomycin Trough Rheumatoid Factor Complement C4 Miscellaneous Test Crossmatch 01/17/17 01/17/17 01/18/17 17:30 23:41 05:15 WBC RBC Hgb Hct MCV MCH MCHC RDW Plt Count Lymph % (Auto) [place] % (Auto) Lymph # [place] # Baso # Seg Neutrophils % Seg Neuts % (Manual) Lymphocytes % (Manual) Monocytes % (Manual) Eosinophils % (Manual) Basophils % (Manual) Nucleated RBC % Seg Neutrophils # Seg Neutrophils # Man Lymphocytes # (Manual) Monocytes # (Manual) Eosinophils # (Manual) Basophils # (Manual) PT INR Fibrinogen dRVVT Confirm Interp Factor V Activity POC ABG pH POC ABG pCO2 POC ABG pO2 ABG pO2 ABG HCO3 ABG Base Excess ABG Hemoglobin Oxyhemoglobin Sodium Potassium Chloride Carbon Dioxide BUN 89 H Creatinine 1.7 H Glucose 118 H POC Glucose 137 H 119 H Lactic Acid Calcium Ionized Calcium Phosphorus Magnesium Direct Bilirubin AST ALT Alkaline Phosphatase Lactate Dehydrogenase Troponin T C-Reactive Protein Total Protein Albumin Prealbumin Triglycerides Cholesterol LDL Cholesterol Direct HDL Cholesterol 25-OH Vitamin D Total PTH Intact Urine pH Urine WBC (Auto) Urine Creatinine Urine Total Protein Fluid Total Protein Vancomycin Trough Rheumatoid Factor Complement C4 Miscellaneous Test Crossmatch 01/18/17 01/18/17 01/18/17 05:19 12:16 18:11 WBC RBC Hgb Hct MCV MCH MCHC RDW Plt Count Lymph % (Auto) [place] % (Auto) Lymph # [place] # Baso # Seg Neutrophils % Seg Neuts % (Manual) Lymphocytes % (Manual) Monocytes % (Manual) Eosinophils % (Manual) Basophils % (Manual) Nucleated RBC % Seg Neutrophils # Seg Neutrophils # Man Lymphocytes # (Manual) Monocytes # (Manual) Eosinophils # (Manual) Basophils # (Manual) PT INR Fibrinogen dRVVT Confirm Interp Factor V Activity POC ABG pH POC ABG pCO2 POC ABG pO2 ABG pO2 ABG HCO3 ABG Base Excess ABG Hemoglobin Oxyhemoglobin Sodium Potassium Chloride Carbon Dioxide BUN Creatinine Glucose POC Glucose 134 H 188 H 113 H Lactic Acid Calcium Ionized Calcium Phosphorus Magnesium Direct Bilirubin AST ALT Alkaline Phosphatase Lactate Dehydrogenase Troponin T C-Reactive Protein Total Protein Albumin Prealbumin Triglycerides Cholesterol LDL Cholesterol Direct HDL Cholesterol 25-OH Vitamin D Total PTH Intact Urine pH Urine WBC (Auto) Urine Creatinine Urine Total Protein Fluid Total Protein Vancomycin Trough Rheumatoid Factor Complement C4 Miscellaneous Test Crossmatch 01/19/17 01/19/17 01/19/17 00:00 05:30 05:36 WBC RBC Hgb Hct MCV MCH MCHC RDW Plt Count Lymph % (Auto) [place] % (Auto) Lymph # [place] # Baso # Seg Neutrophils % Seg Neuts % (Manual) Lymphocytes % (Manual) Monocytes % (Manual) Eosinophils % (Manual) Basophils % (Manual) Nucleated RBC % Seg Neutrophils # Seg Neutrophils # Man Lymphocytes # (Manual) Monocytes # (Manual) Eosinophils # (Manual) Basophils # (Manual) PT INR Fibrinogen dRVVT Confirm Interp Factor V Activity POC ABG pH POC ABG pCO2 POC ABG pO2 ABG pO2 ABG HCO3 ABG Base Excess ABG Hemoglobin Oxyhemoglobin Sodium Potassium Chloride Carbon Dioxide BUN 70 H Creatinine 1.5 H Glucose 121 H POC Glucose 137 H 155 H Lactic Acid Calcium Ionized Calcium Phosphorus 2.10 L D Magnesium Direct Bilirubin AST ALT Alkaline Phosphatase Lactate Dehydrogenase Troponin T C-Reactive Protein Total Protein Albumin Prealbumin Triglycerides Cholesterol LDL Cholesterol Direct HDL Cholesterol 25-OH Vitamin D Total PTH Intact Urine pH Urine WBC (Auto) Urine Creatinine Urine Total Protein Fluid Total Protein Vancomycin Trough Rheumatoid Factor Complement C4 Miscellaneous Test Crossmatch 01/19/17 01/19/17 01/19/17 11:59 15:32 17:57 WBC RBC Hgb Hct MCV MCH MCHC RDW Plt Count Lymph % (Auto) [place] % (Auto) Lymph # [place] # Baso # Seg Neutrophils % Seg Neuts % (Manual) Lymphocytes % (Manual) Monocytes % (Manual) Eosinophils % (Manual) Basophils % (Manual) Nucleated RBC % Seg Neutrophils # Seg Neutrophils # Man Lymphocytes # (Manual) Monocytes # (Manual) Eosinophils # (Manual) Basophils # (Manual) PT INR Fibrinogen dRVVT Confirm Interp Factor V Activity POC ABG pH POC ABG pCO2 33.1 L POC ABG pO2 76 L ABG pO2 ABG HCO3 ABG Base Excess ABG Hemoglobin Oxyhemoglobin Sodium Potassium Chloride Carbon Dioxide BUN Creatinine Glucose POC Glucose 156 H 129 H Lactic Acid Calcium Ionized Calcium Phosphorus Magnesium Direct Bilirubin AST ALT Alkaline Phosphatase Lactate Dehydrogenase Troponin T C-Reactive Protein Total Protein Albumin Prealbumin Triglycerides Cholesterol LDL Cholesterol Direct HDL Cholesterol 25-OH Vitamin D Total PTH Intact Urine pH Urine WBC (Auto) Urine Creatinine Urine Total Protein Fluid Total Protein Vancomycin Trough Rheumatoid Factor Complement C4 Miscellaneous Test Crossmatch 01/19/17 01/20/17 01/20/17 23:49 04:00 05:21 WBC RBC Hgb Hct MCV MCH MCHC RDW Plt Count Lymph % (Auto) [place] % (Auto) Lymph # [place] # Baso # Seg Neutrophils % Seg Neuts % (Manual) Lymphocytes % (Manual) Monocytes % (Manual) Eosinophils % (Manual) Basophils % (Manual) Nucleated RBC % Seg Neutrophils # Seg Neutrophils # Man Lymphocytes # (Manual) Monocytes # (Manual) Eosinophils # (Manual) Basophils # (Manual) PT INR Fibrinogen dRVVT Confirm Interp Factor V Activity POC ABG pH POC ABG pCO2 POC ABG pO2 ABG pO2 ABG HCO3 ABG Base Excess ABG Hemoglobin Oxyhemoglobin Sodium Potassium Chloride Carbon Dioxide BUN 96 H Creatinine 1.9 H Glucose 106 H POC Glucose 125 H 130 H Lactic Acid Calcium Ionized Calcium Phosphorus 2.40 L Magnesium Direct Bilirubin AST ALT Alkaline Phosphatase Lactate Dehydrogenase Troponin T C-Reactive Protein Total Protein Albumin Prealbumin Triglycerides Cholesterol LDL Cholesterol Direct HDL Cholesterol 25-OH Vitamin D Total PTH Intact Urine pH Urine WBC (Auto) Urine Creatinine Urine Total Protein Fluid Total Protein Vancomycin Trough Rheumatoid Factor Complement C4 Miscellaneous Test Crossmatch 01/20/17 01/20/17 01/20/17 11:58 12:17 17:26 WBC RBC Hgb Hct MCV MCH MCHC RDW Plt Count Lymph % (Auto) [place] % (Auto) Lymph # [place] # Baso # Seg Neutrophils % Seg Neuts % (Manual) Lymphocytes % (Manual) Monocytes % (Manual) Eosinophils % (Manual) Basophils % (Manual) Nucleated RBC % Seg Neutrophils # Seg Neutrophils # Man Lymphocytes # (Manual) Monocytes # (Manual) Eosinophils # (Manual) Basophils # (Manual) PT INR Fibrinogen dRVVT Confirm Interp Factor V Activity POC ABG pH POC ABG pCO2 POC ABG pO2 70 L ABG pO2 ABG HCO3 ABG Base Excess ABG Hemoglobin Oxyhemoglobin Sodium Potassium Chloride Carbon Dioxide BUN Creatinine Glucose POC Glucose 118 H 154 H Lactic Acid Calcium Ionized Calcium Phosphorus Magnesium Direct Bilirubin AST ALT Alkaline Phosphatase Lactate Dehydrogenase Troponin T C-Reactive Protein Total Protein Albumin Prealbumin Triglycerides Cholesterol LDL Cholesterol Direct HDL Cholesterol 25-OH Vitamin D Total PTH Intact Urine pH Urine WBC (Auto) Urine Creatinine Urine Total Protein Fluid Total Protein Vancomycin Trough Rheumatoid Factor Complement C4 Miscellaneous Test Crossmatch 01/21/17 01/21/17 01/21/17 04:00 04:56 11:46 WBC RBC Hgb Hct MCV MCH MCHC RDW Plt Count Lymph % (Auto) [place] % (Auto) Lymph # [place] # Baso # Seg Neutrophils % Seg Neuts % (Manual) Lymphocytes % (Manual) Monocytes % (Manual) Eosinophils % (Manual) Basophils % (Manual) Nucleated RBC % Seg Neutrophils # Seg Neutrophils # Man Lymphocytes # (Manual) Monocytes # (Manual) Eosinophils # (Manual) Basophils # (Manual) PT INR Fibrinogen dRVVT Confirm Interp Factor V Activity POC ABG pH POC ABG pCO2 POC ABG pO2 ABG pO2 ABG HCO3 ABG Base Excess ABG Hemoglobin Oxyhemoglobin Sodium Potassium 3.5 L Chloride 97.4 L Carbon Dioxide BUN 66 H Creatinine 1.4 H Glucose POC Glucose 116 H 106 H Lactic Acid Calcium Ionized Calcium Phosphorus 2.10 L Magnesium Direct Bilirubin AST ALT Alkaline Phosphatase Lactate Dehydrogenase Troponin T C-Reactive Protein Total Protein Albumin Prealbumin Triglycerides Cholesterol LDL Cholesterol Direct HDL Cholesterol 25-OH Vitamin D Total PTH Intact Urine pH Urine WBC (Auto) Urine Creatinine Urine Total Protein Fluid Total Protein Vancomycin Trough Rheumatoid Factor Complement C4 Miscellaneous Test Crossmatch 01/21/17 01/21/17 01/22/17 17:25 23:49 05:35 WBC RBC Hgb Hct MCV MCH MCHC RDW Plt Count Lymph % (Auto) [place] % (Auto) Lymph # [place] # Baso # Seg Neutrophils % Seg Neuts % (Manual) Lymphocytes % (Manual) Monocytes % (Manual) Eosinophils % (Manual) Basophils % (Manual) Nucleated RBC % Seg Neutrophils # Seg Neutrophils # Man Lymphocytes # (Manual) Monocytes # (Manual) Eosinophils # (Manual) Basophils # (Manual) PT INR Fibrinogen dRVVT Confirm Interp Factor V Activity POC ABG pH POC ABG pCO2 POC ABG pO2 ABG pO2 ABG HCO3 ABG Base Excess ABG Hemoglobin Oxyhemoglobin Sodium Potassium Chloride Carbon Dioxide BUN Creatinine Glucose POC Glucose 106 H 133 H 107 H Lactic Acid Calcium Ionized Calcium Phosphorus Magnesium Direct Bilirubin AST ALT Alkaline Phosphatase Lactate Dehydrogenase Troponin T C-Reactive Protein Total Protein Albumin Prealbumin Triglycerides Cholesterol LDL Cholesterol Direct HDL Cholesterol 25-OH Vitamin D Total PTH Intact Urine pH Urine WBC (Auto) Urine Creatinine Urine Total Protein Fluid Total Protein Vancomycin Trough Rheumatoid Factor Complement C4 Miscellaneous Test Crossmatch 01/22/17 01/22/17 01/22/17 07:20 07:20 11:31 WBC RBC 2.75 L Hgb 7.5 L Hct 22.7 L MCV MCH 27 L MCHC RDW 17.5 H Plt Count Lymph % (Auto) [place] % (Auto) Lymph # [place] # Baso # Seg Neutrophils % Seg Neuts % (Manual) Lymphocytes % (Manual) Monocytes % (Manual) Eosinophils % (Manual) Basophils % (Manual) Nucleated RBC % Seg Neutrophils # Seg Neutrophils # Man Lymphocytes # (Manual) Monocytes # (Manual) Eosinophils # (Manual) Basophils # (Manual) PT INR Fibrinogen dRVVT Confirm Interp Factor V Activity POC ABG pH POC ABG pCO2 POC ABG pO2 ABG pO2 ABG HCO3 ABG Base Excess ABG Hemoglobin Oxyhemoglobin Sodium Potassium 3.3 L Chloride Carbon Dioxide BUN 42 H Creatinine Glucose 105 H POC Glucose 124 H Lactic Acid Calcium Ionized Calcium Phosphorus 1.70 L Magnesium Direct Bilirubin AST ALT Alkaline Phosphatase Lactate Dehydrogenase Troponin T C-Reactive Protein Total Protein Albumin Prealbumin Triglycerides Cholesterol LDL Cholesterol Direct HDL Cholesterol 25-OH Vitamin D Total PTH Intact Urine pH Urine WBC (Auto) Urine Creatinine Urine Total Protein Fluid Total Protein Vancomycin Trough Rheumatoid Factor Complement C4 Miscellaneous Test Crossmatch 01/22/17 01/22/17 01/23/17 17:16 23:35 05:35 WBC RBC Hgb Hct MCV MCH MCHC RDW Plt Count Lymph % (Auto) [place] % (Auto) Lymph # [place] # Baso # Seg Neutrophils % Seg Neuts % (Manual) Lymphocytes % (Manual) Monocytes % (Manual) Eosinophils % (Manual) Basophils % (Manual) Nucleated RBC % Seg Neutrophils # Seg Neutrophils # Man Lymphocytes # (Manual) Monocytes # (Manual) Eosinophils # (Manual) Basophils # (Manual) PT INR Fibrinogen dRVVT Confirm Interp Factor V Activity POC ABG pH POC ABG pCO2 POC ABG pO2 ABG pO2 ABG HCO3 ABG Base Excess ABG Hemoglobin Oxyhemoglobin Sodium Potassium Chloride Carbon Dioxide BUN Creatinine Glucose POC Glucose 135 H 120 H 111 H Lactic Acid Calcium Ionized Calcium Phosphorus Magnesium Direct Bilirubin AST ALT Alkaline Phosphatase Lactate Dehydrogenase Troponin T C-Reactive Protein Total Protein Albumin Prealbumin Triglycerides Cholesterol LDL Cholesterol Direct HDL Cholesterol 25-OH Vitamin D Total PTH Intact Urine pH Urine WBC (Auto) Urine Creatinine Urine Total Protein Fluid Total Protein Vancomycin Trough Rheumatoid Factor Complement C4 Miscellaneous Test Crossmatch 01/23/17 01/23/17 01/23/17 06:10 17:27 23:44 WBC RBC Hgb Hct MCV MCH MCHC RDW Plt Count Lymph % (Auto) [place] % (Auto) Lymph # [place] # Baso # Seg Neutrophils % Seg Neuts % (Manual) Lymphocytes % (Manual) Monocytes % (Manual) Eosinophils % (Manual) Basophils % (Manual) Nucleated RBC % Seg Neutrophils # Seg Neutrophils # Man Lymphocytes # (Manual) Monocytes # (Manual) Eosinophils # (Manual) Basophils # (Manual) PT INR Fibrinogen dRVVT Confirm Interp Factor V Activity POC ABG pH POC ABG pCO2 POC ABG pO2 ABG pO2 ABG HCO3 ABG Base Excess ABG Hemoglobin Oxyhemoglobin Sodium Potassium 3.3 L Chloride Carbon Dioxide BUN 66 H Creatinine 1.3 H Glucose 109 H POC Glucose 120 H 115 H Lactic Acid Calcium Ionized Calcium Phosphorus 2.20 L D Magnesium Direct Bilirubin AST ALT Alkaline Phosphatase Lactate Dehydrogenase Troponin T C-Reactive Protein Total Protein Albumin Prealbumin Triglycerides Cholesterol LDL Cholesterol Direct HDL Cholesterol 25-OH Vitamin D Total PTH Intact Urine pH Urine WBC (Auto) Urine Creatinine Urine Total Protein Fluid Total Protein Vancomycin Trough Rheumatoid Factor Complement C4 Miscellaneous Test Crossmatch 01/24/17 01/24/17 01/24/17 05:19 05:50 12:19 WBC RBC Hgb Hct MCV MCH MCHC RDW Plt Count Lymph % (Auto) [place] % (Auto) Lymph # [place] # Baso # Seg Neutrophils % Seg Neuts % (Manual) Lymphocytes % (Manual) Monocytes % (Manual) Eosinophils % (Manual) Basophils % (Manual) Nucleated RBC % Seg Neutrophils # Seg Neutrophils # Man Lymphocytes # (Manual) Monocytes # (Manual) Eosinophils # (Manual) Basophils # (Manual) PT INR Fibrinogen dRVVT Confirm Interp Factor V Activity POC ABG pH POC ABG pCO2 POC ABG pO2 ABG pO2 ABG HCO3 ABG Base Excess ABG Hemoglobin Oxyhemoglobin Sodium Potassium Chloride Carbon Dioxide BUN 47 H Creatinine Glucose 117 H POC Glucose 126 H 119 H Lactic Acid Calcium Ionized Calcium Phosphorus 2.30 L Magnesium 1.60 L Direct Bilirubin AST ALT Alkaline Phosphatase Lactate Dehydrogenase Troponin T C-Reactive Protein Total Protein Albumin Prealbumin Triglycerides Cholesterol LDL Cholesterol Direct HDL Cholesterol 25-OH Vitamin D Total PTH Intact Urine pH Urine WBC (Auto) Urine Creatinine Urine Total Protein Fluid Total Protein Vancomycin Trough Rheumatoid Factor Complement C4 Miscellaneous Test Crossmatch 01/24/17 01/25/17 01/25/17 17:08 00:37 04:00 WBC RBC Hgb Hct MCV MCH MCHC RDW Plt Count Lymph % (Auto) [place] % (Auto) Lymph # [place] # Baso # Seg Neutrophils % Seg Neuts % (Manual) Lymphocytes % (Manual) Monocytes % (Manual) Eosinophils % (Manual) Basophils % (Manual) Nucleated RBC % Seg Neutrophils # Seg Neutrophils # Man Lymphocytes # (Manual) Monocytes # (Manual) Eosinophils # (Manual) Basophils # (Manual) PT INR Fibrinogen dRVVT Confirm Interp Factor V Activity POC ABG pH POC ABG pCO2 POC ABG pO2 ABG pO2 ABG HCO3 ABG Base Excess ABG Hemoglobin Oxyhemoglobin Sodium Potassium Chloride Carbon Dioxide BUN 72 H Creatinine 1.3 H Glucose POC Glucose 127 H 110 H Lactic Acid Calcium Ionized Calcium Phosphorus Magnesium Direct Bilirubin AST ALT Alkaline Phosphatase Lactate Dehydrogenase Troponin T C-Reactive Protein Total Protein Albumin Prealbumin Triglycerides Cholesterol LDL Cholesterol Direct HDL Cholesterol 25-OH Vitamin D Total PTH Intact Urine pH Urine WBC (Auto) Urine Creatinine Urine Total Protein Fluid Total Protein Vancomycin Trough Rheumatoid Factor Complement C4 Miscellaneous Test Crossmatch 01/25/17 01/25/17 01/25/17 04:00 11:15 13:05 WBC RBC 2.49 L Hgb 6.7 L Hct 20.9 L MCV MCH 27 L MCHC RDW 18.8 H Plt Count Lymph % (Auto) [place] % (Auto) 10.1 H Lymph # [place] # 1.0 H Baso # Seg Neutrophils % Seg Neuts % (Manual) Lymphocytes % (Manual) Monocytes % (Manual) Eosinophils % (Manual) Basophils % (Manual) Nucleated RBC % Seg Neutrophils # Seg Neutrophils # Man Lymphocytes # (Manual) Monocytes # (Manual) Eosinophils # (Manual) Basophils # (Manual) PT INR Fibrinogen dRVVT Confirm Interp Factor V Activity POC ABG pH POC ABG pCO2 POC ABG pO2 ABG pO2 ABG HCO3 ABG Base Excess ABG Hemoglobin Oxyhemoglobin Sodium Potassium Chloride Carbon Dioxide BUN Creatinine Glucose POC Glucose 128 H Lactic Acid Calcium Ionized Calcium Phosphorus Magnesium Direct Bilirubin AST ALT Alkaline Phosphatase Lactate Dehydrogenase Troponin T C-Reactive Protein Total Protein Albumin Prealbumin Triglycerides Cholesterol LDL Cholesterol Direct HDL Cholesterol 25-OH Vitamin D Total PTH Intact Urine pH Urine WBC (Auto) Urine Creatinine Urine Total Protein Fluid Total Protein Vancomycin Trough Rheumatoid Factor Complement C4 Miscellaneous Test Crossmatch See Detail 01/25/17 01/25/17 01/26/17 18:02 23:07 01:20 WBC RBC Hgb Hct MCV MCH MCHC RDW Plt Count Lymph % (Auto) [place] % (Auto) Lymph # [place] # Baso # Seg Neutrophils % Seg Neuts % (Manual) Lymphocytes % (Manual) Monocytes % (Manual) Eosinophils % (Manual) Basophils % (Manual) Nucleated RBC % Seg Neutrophils # Seg Neutrophils # Man Lymphocytes # (Manual) Monocytes # (Manual) Eosinophils # (Manual) Basophils # (Manual) PT INR Fibrinogen dRVVT Confirm Interp Factor V Activity POC ABG pH POC ABG pCO2 POC ABG pO2 ABG pO2 ABG HCO3 ABG Base Excess ABG Hemoglobin Oxyhemoglobin Sodium Potassium Chloride Carbon Dioxide BUN Creatinine Glucose POC Glucose 120 H 123 H 112 H Lactic Acid Calcium Ionized Calcium Phosphorus Magnesium Direct Bilirubin AST ALT Alkaline Phosphatase Lactate Dehydrogenase Troponin T C-Reactive Protein Total Protein Albumin Prealbumin Triglycerides Cholesterol LDL Cholesterol Direct HDL Cholesterol 25-OH Vitamin D Total PTH Intact Urine pH Urine WBC (Auto) Urine Creatinine Urine Total Protein Fluid Total Protein Vancomycin Trough Rheumatoid Factor Complement C4 Miscellaneous Test Crossmatch 01/26/17 01/26/17 01/26/17 04:20 04:20 11:23 WBC 13.1 H RBC 3.28 L Hgb 9.0 L Hct 26.9 L D MCV MCH 27 L MCHC RDW 17.2 H Plt Count Lymph % (Auto) [place] % (Auto) 9.0 H Lymph # [place] # 1.2 H Baso # Seg Neutrophils % 73.1 H Seg Neuts % (Manual) Lymphocytes % (Manual) Monocytes % (Manual) Eosinophils % (Manual) Basophils % (Manual) Nucleated RBC % Seg Neutrophils # 9.6 H Seg Neutrophils # Man Lymphocytes # (Manual) Monocytes # (Manual) Eosinophils # (Manual) Basophils # (Manual) PT INR Fibrinogen dRVVT Confirm Interp Factor V Activity POC ABG pH POC ABG pCO2 POC ABG pO2 ABG pO2 ABG HCO3 ABG Base Excess ABG Hemoglobin Oxyhemoglobin Sodium Potassium Chloride Carbon Dioxide BUN 51 H Creatinine Glucose 117 H POC Glucose 125 H Lactic Acid Calcium Ionized Calcium Phosphorus Magnesium Direct Bilirubin AST ALT Alkaline Phosphatase Lactate Dehydrogenase Troponin T C-Reactive Protein Total Protein Albumin Prealbumin Triglycerides Cholesterol LDL Cholesterol Direct HDL Cholesterol 25-OH Vitamin D Total PTH Intact Urine pH Urine WBC (Auto) Urine Creatinine Urine Total Protein Fluid Total Protein Vancomycin Trough Rheumatoid Factor Complement C4 Miscellaneous Test Crossmatch 01/26/17 01/27/17 01/27/17 17:11 00:30 04:00 WBC RBC Hgb Hct MCV MCH MCHC RDW Plt Count Lymph % (Auto) [place] % (Auto) Lymph # [place] # Baso # Seg Neutrophils % Seg Neuts % (Manual) Lymphocytes % (Manual) Monocytes % (Manual) Eosinophils % (Manual) Basophils % (Manual) Nucleated RBC % Seg Neutrophils # Seg Neutrophils # Man Lymphocytes # (Manual) Monocytes # (Manual) Eosinophils # (Manual) Basophils # (Manual) PT INR Fibrinogen dRVVT Confirm Interp Factor V Activity POC ABG pH POC ABG pCO2 POC ABG pO2 ABG pO2 ABG HCO3 ABG Base Excess ABG Hemoglobin Oxyhemoglobin Sodium Potassium Chloride 97.7 L Carbon Dioxide 21 L BUN 79 H Creatinine 1.7 H D Glucose 112 H POC Glucose 133 H 135 H Lactic Acid Calcium Ionized Calcium Phosphorus 5.00 H D Magnesium Direct Bilirubin AST ALT Alkaline Phosphatase Lactate Dehydrogenase Troponin T C-Reactive Protein Total Protein Albumin Prealbumin Triglycerides Cholesterol LDL Cholesterol Direct HDL Cholesterol 25-OH Vitamin D Total PTH Intact Urine pH Urine WBC (Auto) Urine Creatinine Urine Total Protein Fluid Total Protein Vancomycin Trough Rheumatoid Factor Complement C4 Miscellaneous Test Crossmatch 01/27/17 01/27/17 01/27/17 05:12 12:18 17:25 WBC RBC Hgb Hct MCV MCH MCHC RDW Plt Count Lymph % (Auto) [place] % (Auto) Lymph # [place] # Baso # Seg Neutrophils % Seg Neuts % (Manual) Lymphocytes % (Manual) Monocytes % (Manual) Eosinophils % (Manual) Basophils % (Manual) Nucleated RBC % Seg Neutrophils # Seg Neutrophils # Man Lymphocytes # (Manual) Monocytes # (Manual) Eosinophils # (Manual) Basophils # (Manual) PT INR Fibrinogen dRVVT Confirm Interp Factor V Activity POC ABG pH POC ABG pCO2 POC ABG pO2 ABG pO2 ABG HCO3 ABG Base Excess ABG Hemoglobin Oxyhemoglobin Sodium Potassium Chloride Carbon Dioxide BUN Creatinine Glucose POC Glucose 116 H 153 H 152 H Lactic Acid Calcium Ionized Calcium Phosphorus Magnesium Direct Bilirubin AST ALT Alkaline Phosphatase Lactate Dehydrogenase Troponin T C-Reactive Protein Total Protein Albumin Prealbumin Triglycerides Cholesterol LDL Cholesterol Direct HDL Cholesterol 25-OH Vitamin D Total PTH Intact Urine pH Urine WBC (Auto) Urine Creatinine Urine Total Protein Fluid Total Protein Vancomycin Trough Rheumatoid Factor Complement C4 Miscellaneous Test Crossmatch 01/27/17 01/28/17 01/28/17 23:42 04:00 04:00 WBC 14.4 H RBC 2.82 L Hgb 7.4 L Hct 23.5 L MCV MCH 26 L MCHC RDW 17.6 H Plt Count Lymph % (Auto) 10.2 L [place] % (Auto) 11.0 H Lymph # [place] # 1.6 H Baso # Seg Neutrophils % 78.0 H Seg Neuts % (Manual) Lymphocytes % (Manual) Monocytes % (Manual) Eosinophils % (Manual) Basophils % (Manual) Nucleated RBC % Seg Neutrophils # 11.3 H Seg Neutrophils # Man Lymphocytes # (Manual) Monocytes # (Manual) Eosinophils # (Manual) Basophils # (Manual) PT INR Fibrinogen dRVVT Confirm Interp Factor V Activity POC ABG pH POC ABG pCO2 POC ABG pO2 ABG pO2 ABG HCO3 ABG Base Excess ABG Hemoglobin Oxyhemoglobin Sodium Potassium Chloride Carbon Dioxide BUN 55 H Creatinine 1.3 H Glucose 114 H POC Glucose 121 H Lactic Acid Calcium Ionized Calcium Phosphorus Magnesium Direct Bilirubin AST ALT Alkaline Phosphatase Lactate Dehydrogenase Troponin T C-Reactive Protein Total Protein Albumin 1.4 L Prealbumin Triglycerides Cholesterol LDL Cholesterol Direct HDL Cholesterol 25-OH Vitamin D Total PTH Intact Urine pH Urine WBC (Auto) Urine Creatinine Urine Total Protein Fluid Total Protein Vancomycin Trough Rheumatoid Factor Complement C4 Miscellaneous Test Crossmatch 01/28/17 01/28/17 01/29/17 04:59 12:30 00:02 WBC RBC Hgb Hct MCV MCH MCHC RDW Plt Count Lymph % (Auto) [place] % (Auto) Lymph # [place] # Baso # Seg Neutrophils % Seg Neuts % (Manual) Lymphocytes % (Manual) Monocytes % (Manual) Eosinophils % (Manual) Basophils % (Manual) Nucleated RBC % Seg Neutrophils # Seg Neutrophils # Man Lymphocytes # (Manual) Monocytes # (Manual) Eosinophils # (Manual) Basophils # (Manual) PT INR Fibrinogen dRVVT Confirm Interp Factor V Activity POC ABG pH POC ABG pCO2 POC ABG pO2 ABG pO2 ABG HCO3 ABG Base Excess ABG Hemoglobin Oxyhemoglobin Sodium Potassium Chloride Carbon Dioxide BUN Creatinine Glucose POC Glucose 126 H 119 H 138 H Lactic Acid Calcium Ionized Calcium Phosphorus Magnesium Direct Bilirubin AST ALT Alkaline Phosphatase Lactate Dehydrogenase Troponin T C-Reactive Protein Total Protein Albumin Prealbumin Triglycerides Cholesterol LDL Cholesterol Direct HDL Cholesterol 25-OH Vitamin D Total PTH Intact Urine pH Urine WBC (Auto) Urine Creatinine Urine Total Protein Fluid Total Protein Vancomycin Trough Rheumatoid Factor Complement C4 Miscellaneous Test Crossmatch 01/29/17 01/29/17 01/29/17 04:58 06:15 11:35 WBC RBC Hgb Hct MCV MCH MCHC RDW Plt Count Lymph % (Auto) [place] % (Auto) Lymph # [place] # Baso # Seg Neutrophils % Seg Neuts % (Manual) Lymphocytes % (Manual) Monocytes % (Manual) Eosinophils % (Manual) Basophils % (Manual) Nucleated RBC % Seg Neutrophils # Seg Neutrophils # Man Lymphocytes # (Manual) Monocytes # (Manual) Eosinophils # (Manual) Basophils # (Manual) PT INR Fibrinogen dRVVT Confirm Interp Factor V Activity POC ABG pH POC ABG pCO2 POC ABG pO2 ABG pO2 ABG HCO3 ABG Base Excess ABG Hemoglobin Oxyhemoglobin Sodium Potassium Chloride Carbon Dioxide BUN 85 H Creatinine 1.7 H Glucose 105 H POC Glucose 114 H 110 H Lactic Acid Calcium Ionized Calcium Phosphorus Magnesium 2.40 H Direct Bilirubin AST ALT Alkaline Phosphatase Lactate Dehydrogenase Troponin T C-Reactive Protein Total Protein Albumin Prealbumin Triglycerides Cholesterol LDL Cholesterol Direct HDL Cholesterol 25-OH Vitamin D Total PTH Intact Urine pH Urine WBC (Auto) Urine Creatinine Urine Total Protein Fluid Total Protein Vancomycin Trough Rheumatoid Factor Complement C4 Miscellaneous Test Crossmatch 01/29/17 01/29/17 01/30/17 18:24 23:41 05:12 WBC RBC Hgb Hct MCV MCH MCHC RDW Plt Count Lymph % (Auto) [place] % (Auto) Lymph # [place] # Baso # Seg Neutrophils % Seg Neuts % (Manual) Lymphocytes % (Manual) Monocytes % (Manual) Eosinophils % (Manual) Basophils % (Manual) Nucleated RBC % Seg Neutrophils # Seg Neutrophils # Man Lymphocytes # (Manual) Monocytes # (Manual) Eosinophils # (Manual) Basophils # (Manual) PT INR Fibrinogen dRVVT Confirm Interp Factor V Activity POC ABG pH POC ABG pCO2 POC ABG pO2 ABG pO2 ABG HCO3 ABG Base Excess ABG Hemoglobin Oxyhemoglobin Sodium Potassium Chloride Carbon Dioxide BUN Creatinine Glucose POC Glucose 109 H 134 H 109 H Lactic Acid Calcium Ionized Calcium Phosphorus Magnesium Direct Bilirubin AST ALT Alkaline Phosphatase Lactate Dehydrogenase Troponin T C-Reactive Protein Total Protein Albumin Prealbumin Triglycerides Cholesterol LDL Cholesterol Direct HDL Cholesterol 25-OH Vitamin D Total PTH Intact Urine pH Urine WBC (Auto) Urine Creatinine Urine Total Protein Fluid Total Protein Vancomycin Trough Rheumatoid Factor Complement C4 Miscellaneous Test Crossmatch 01/30/17 01/30/17 01/30/17 11:26 17:43 23:39 WBC RBC Hgb Hct MCV MCH MCHC RDW Plt Count Lymph % (Auto) [place] % (Auto) Lymph # [place] # Baso # Seg Neutrophils % Seg Neuts % (Manual) Lymphocytes % (Manual) Monocytes % (Manual) Eosinophils % (Manual) Basophils % (Manual) Nucleated RBC % Seg Neutrophils # Seg Neutrophils # Man Lymphocytes # (Manual) Monocytes # (Manual) Eosinophils # (Manual) Basophils # (Manual) PT INR Fibrinogen dRVVT Confirm Interp Factor V Activity POC ABG pH POC ABG pCO2 POC ABG pO2 ABG pO2 ABG HCO3 ABG Base Excess ABG Hemoglobin Oxyhemoglobin Sodium Potassium Chloride Carbon Dioxide BUN Creatinine Glucose POC Glucose 135 H 143 H 122 H Lactic Acid Calcium Ionized Calcium Phosphorus Magnesium Direct Bilirubin AST ALT Alkaline Phosphatase Lactate Dehydrogenase Troponin T C-Reactive Protein Total Protein Albumin Prealbumin Triglycerides Cholesterol LDL Cholesterol Direct HDL Cholesterol 25-OH Vitamin D Total PTH Intact Urine pH Urine WBC (Auto) Urine Creatinine Urine Total Protein Fluid Total Protein Vancomycin Trough Rheumatoid Factor Complement C4 Miscellaneous Test Crossmatch 01/31/17 01/31/17 01/31/17 04:00 05:40 11:12 WBC RBC Hgb Hct MCV MCH MCHC RDW Plt Count Lymph % (Auto) [place] % (Auto) Lymph # [place] # Baso # Seg Neutrophils % Seg Neuts % (Manual) Lymphocytes % (Manual) Monocytes % (Manual) Eosinophils % (Manual) Basophils % (Manual) Nucleated RBC % Seg Neutrophils # Seg Neutrophils # Man Lymphocytes # (Manual) Monocytes # (Manual) Eosinophils # (Manual) Basophils # (Manual) PT INR Fibrinogen dRVVT Confirm Interp Factor V Activity POC ABG pH POC ABG pCO2 POC ABG pO2 ABG pO2 ABG HCO3 ABG Base Excess ABG Hemoglobin Oxyhemoglobin Sodium Potassium Chloride Carbon Dioxide BUN 78 H Creatinine 1.5 H Glucose 108 H POC Glucose 123 H Lactic Acid Calcium Ionized Calcium Phosphorus Magnesium Direct Bilirubin AST ALT Alkaline Phosphatase Lactate Dehydrogenase Troponin T C-Reactive Protein 8.10 H Total Protein Albumin Prealbumin Triglycerides Cholesterol LDL Cholesterol Direct HDL Cholesterol 25-OH Vitamin D Total PTH Intact Urine pH Urine WBC (Auto) Urine Creatinine Urine Total Protein Fluid Total Protein Vancomycin Trough Rheumatoid Factor Complement C4 Miscellaneous Test Crossmatch 01/31/17 01/31/17 01/31/17 11:16 17:45 17:50 WBC RBC Hgb Hct MCV MCH MCHC RDW Plt Count Lymph % (Auto) [place] % (Auto) Lymph # [place] # Baso # Seg Neutrophils % Seg Neuts % (Manual) Lymphocytes % (Manual) Monocytes % (Manual) Eosinophils % (Manual) Basophils % (Manual) Nucleated RBC % Seg Neutrophils # Seg Neutrophils # Man Lymphocytes # (Manual) Monocytes # (Manual) Eosinophils # (Manual) Basophils # (Manual) PT INR Fibrinogen dRVVT Confirm Interp Factor V Activity POC ABG pH POC ABG pCO2 POC ABG pO2 ABG pO2 ABG HCO3 ABG Base Excess ABG Hemoglobin Oxyhemoglobin Sodium Potassium Chloride Carbon Dioxide BUN Creatinine Glucose POC Glucose 119 H 111 H Lactic Acid Calcium Ionized Calcium Phosphorus Magnesium Direct Bilirubin AST ALT Alkaline Phosphatase Lactate Dehydrogenase Troponin T C-Reactive Protein Total Protein Albumin Prealbumin Triglycerides Cholesterol LDL Cholesterol Direct HDL Cholesterol 25-OH Vitamin D Total PTH Intact 6.76 L Urine pH Urine WBC (Auto) Urine Creatinine Urine Total Protein Fluid Total Protein Vancomycin Trough Rheumatoid Factor Complement C4 Miscellaneous Test Crossmatch 01/31/17 02/01/17 02/01/17 23:19 05:42 09:24 WBC RBC Hgb Hct MCV MCH MCHC RDW Plt Count Lymph % (Auto) [place] % (Auto) Lymph # [place] # Baso # Seg Neutrophils % Seg Neuts % (Manual) Lymphocytes % (Manual) Monocytes % (Manual) Eosinophils % (Manual) Basophils % (Manual) Nucleated RBC % Seg Neutrophils # Seg Neutrophils # Man Lymphocytes # (Manual) Monocytes # (Manual) Eosinophils # (Manual) Basophils # (Manual) PT INR Fibrinogen dRVVT Confirm Interp Factor V Activity POC ABG pH POC ABG pCO2 POC ABG pO2 ABG pO2 ABG HCO3 ABG Base Excess ABG Hemoglobin Oxyhemoglobin Sodium Potassium Chloride Carbon Dioxide BUN Creatinine Glucose POC Glucose 118 H 122 H Lactic Acid Calcium Ionized Calcium Phosphorus Magnesium 2.60 H Direct Bilirubin AST ALT Alkaline Phosphatase Lactate Dehydrogenase Troponin T C-Reactive Protein Total Protein Albumin Prealbumin Triglycerides Cholesterol LDL Cholesterol Direct HDL Cholesterol 25-OH Vitamin D Total PTH Intact Urine pH Urine WBC (Auto) Urine Creatinine Urine Total Protein Fluid Total Protein Vancomycin Trough Rheumatoid Factor Complement C4 Miscellaneous Test Crossmatch 02/01/17 02/01/17 02/02/17 09:24 12:15 07:40 WBC RBC Hgb Hct MCV MCH MCHC RDW Plt Count Lymph % (Auto) [place] % (Auto) Lymph # [place] # Baso # Seg Neutrophils % Seg Neuts % (Manual) Lymphocytes % (Manual) Monocytes % (Manual) Eosinophils % (Manual) Basophils % (Manual) Nucleated RBC % Seg Neutrophils # Seg Neutrophils # Man Lymphocytes # (Manual) Monocytes # (Manual) Eosinophils # (Manual) Basophils # (Manual) PT INR Fibrinogen dRVVT Confirm Interp Factor V Activity POC ABG pH POC ABG pCO2 POC ABG pO2 ABG pO2 ABG HCO3 ABG Base Excess ABG Hemoglobin Oxyhemoglobin Sodium Potassium Chloride Carbon Dioxide BUN 102 H 72 H Creatinine 1.9 H 1.5 H Glucose 120 H POC Glucose 156 H Lactic Acid Calcium Ionized Calcium Phosphorus Magnesium Direct Bilirubin AST ALT Alkaline Phosphatase Lactate Dehydrogenase Troponin T C-Reactive Protein Total Protein Albumin Prealbumin Triglycerides Cholesterol LDL Cholesterol Direct HDL Cholesterol 25-OH Vitamin D Total PTH Intact Urine pH Urine WBC (Auto) Urine Creatinine Urine Total Protein Fluid Total Protein Vancomycin Trough Rheumatoid Factor Complement C4 Miscellaneous Test Crossmatch 02/02/17 02/02/17 02/03/17 10:16 12:11 00:08 WBC 12.0 H RBC 3.08 L Hgb 8.3 L Hct 25.6 L MCV MCH 27 L MCHC RDW 18.2 H Plt Count Lymph % (Auto) [place] % (Auto) Lymph # [place] # Baso # Seg Neutrophils % 78.4 H Seg Neuts % (Manual) Lymphocytes % (Manual) Monocytes % (Manual) Eosinophils % (Manual) Basophils % (Manual) Nucleated RBC % Seg Neutrophils # 9.4 H Seg Neutrophils # Man Lymphocytes # (Manual) Monocytes # (Manual) Eosinophils # (Manual) Basophils # (Manual) PT INR Fibrinogen dRVVT Confirm Interp Factor V Activity POC ABG pH POC ABG pCO2 POC ABG pO2 ABG pO2 ABG HCO3 ABG Base Excess ABG Hemoglobin Oxyhemoglobin Sodium Potassium Chloride Carbon Dioxide BUN Creatinine Glucose POC Glucose 110 H 120 H Lactic Acid Calcium Ionized Calcium Phosphorus Magnesium Direct Bilirubin AST ALT Alkaline Phosphatase Lactate Dehydrogenase Troponin T C-Reactive Protein Total Protein Albumin Prealbumin Triglycerides Cholesterol LDL Cholesterol Direct HDL Cholesterol 25-OH Vitamin D Total PTH Intact Urine pH Urine WBC (Auto) Urine Creatinine Urine Total Protein Fluid Total Protein Vancomycin Trough Rheumatoid Factor Complement C4 Miscellaneous Test Crossmatch 02/03/17 02/03/17 02/03/17 05:41 07:38 11:31 WBC RBC Hgb Hct MCV MCH MCHC RDW Plt Count Lymph % (Auto) [place] % (Auto) Lymph # [place] # Baso # Seg Neutrophils % Seg Neuts % (Manual) Lymphocytes % (Manual) Monocytes % (Manual) Eosinophils % (Manual) Basophils % (Manual) Nucleated RBC % Seg Neutrophils # Seg Neutrophils # Man Lymphocytes # (Manual) Monocytes # (Manual) Eosinophils # (Manual) Basophils # (Manual) PT INR Fibrinogen dRVVT Confirm Interp Factor V Activity POC ABG pH POC ABG pCO2 POC ABG pO2 ABG pO2 ABG HCO3 ABG Base Excess ABG Hemoglobin Oxyhemoglobin Sodium 134 L Potassium Chloride Carbon Dioxide 21 L BUN 91 H Creatinine 1.9 H Glucose 110 H POC Glucose 119 H 119 H Lactic Acid Calcium 10.3 H Ionized Calcium Phosphorus Magnesium Direct Bilirubin AST ALT Alkaline Phosphatase Lactate Dehydrogenase Troponin T C-Reactive Protein Total Protein Albumin Prealbumin Triglycerides Cholesterol LDL Cholesterol Direct HDL Cholesterol 25-OH Vitamin D Total PTH Intact Urine pH Urine WBC (Auto) Urine Creatinine Urine Total Protein Fluid Total Protein Vancomycin Trough Rheumatoid Factor Complement C4 Miscellaneous Test Crossmatch 02/03/17 02/04/17 02/04/17 17:13 04:00 05:18 WBC RBC Hgb Hct MCV MCH MCHC RDW Plt Count Lymph % (Auto) [place] % (Auto) Lymph # [place] # Baso # Seg Neutrophils % Seg Neuts % (Manual) Lymphocytes % (Manual) Monocytes % (Manual) Eosinophils % (Manual) Basophils % (Manual) Nucleated RBC % Seg Neutrophils # Seg Neutrophils # Man Lymphocytes # (Manual) Monocytes # (Manual) Eosinophils # (Manual) Basophils # (Manual) PT INR Fibrinogen dRVVT Confirm Interp Factor V Activity POC ABG pH POC ABG pCO2 POC ABG pO2 ABG pO2 ABG HCO3 ABG Base Excess ABG Hemoglobin Oxyhemoglobin Sodium 136 L Potassium Chloride Carbon Dioxide BUN 58 H Creatinine 1.3 H Glucose 103 H POC Glucose 133 H 132 H Lactic Acid Calcium Ionized Calcium Phosphorus 2.00 L D Magnesium 1.60 L Direct Bilirubin AST ALT Alkaline Phosphatase Lactate Dehydrogenase Troponin T C-Reactive Protein Total Protein Albumin Prealbumin Triglycerides Cholesterol LDL Cholesterol Direct HDL Cholesterol 25-OH Vitamin D Total PTH Intact Urine pH Urine WBC (Auto) Urine Creatinine Urine Total Protein Fluid Total Protein Vancomycin Trough Rheumatoid Factor Complement C4 Miscellaneous Test Crossmatch 02/05/17 02/05/17 02/05/17 00:01 04:00 06:42 WBC RBC Hgb Hct MCV MCH MCHC RDW Plt Count Lymph % (Auto) [place] % (Auto) Lymph # [place] # Baso # Seg Neutrophils % Seg Neuts % (Manual) Lymphocytes % (Manual) Monocytes % (Manual) Eosinophils % (Manual) Basophils % (Manual) Nucleated RBC % Seg Neutrophils # Seg Neutrophils # Man Lymphocytes # (Manual) Monocytes # (Manual) Eosinophils # (Manual) Basophils # (Manual) PT INR Fibrinogen dRVVT Confirm Interp Factor V Activity POC ABG pH POC ABG pCO2 POC ABG pO2 ABG pO2 ABG HCO3 ABG Base Excess ABG Hemoglobin Oxyhemoglobin Sodium Potassium Chloride Carbon Dioxide BUN 83 H Creatinine 1.8 H Glucose POC Glucose 119 H 110 H Lactic Acid Calcium 10.7 H Ionized Calcium Phosphorus Magnesium Direct Bilirubin AST ALT Alkaline Phosphatase Lactate Dehydrogenase Troponin T C-Reactive Protein Total Protein Albumin Prealbumin Triglycerides Cholesterol LDL Cholesterol Direct HDL Cholesterol 25-OH Vitamin D Total PTH Intact Urine pH Urine WBC (Auto) Urine Creatinine Urine Total Protein Fluid Total Protein Vancomycin Trough Rheumatoid Factor Complement C4 Miscellaneous Test Crossmatch 02/05/17 02/05/17 02/05/17 09:59 11:47 23:44 WBC RBC 2.69 L Hgb 7.2 L Hct 22.5 L MCV MCH 27 L MCHC RDW 18.6 H Plt Count Lymph % (Auto) [place] % (Auto) 9.2 H Lymph # [place] # 0.9 H Baso # Seg Neutrophils % Seg Neuts % (Manual) Lymphocytes % (Manual) Monocytes % (Manual) Eosinophils % (Manual) Basophils % (Manual) Nucleated RBC % Seg Neutrophils # Seg Neutrophils # Man Lymphocytes # (Manual) Monocytes # (Manual) Eosinophils # (Manual) Basophils # (Manual) PT INR Fibrinogen dRVVT Confirm Interp Factor V Activity POC ABG pH POC ABG pCO2 POC ABG pO2 ABG pO2 ABG HCO3 ABG Base Excess ABG Hemoglobin Oxyhemoglobin Sodium Potassium Chloride Carbon Dioxide BUN Creatinine Glucose POC Glucose 130 H 123 H Lactic Acid Calcium Ionized Calcium Phosphorus Magnesium Direct Bilirubin AST ALT Alkaline Phosphatase Lactate Dehydrogenase Troponin T C-Reactive Protein Total Protein Albumin Prealbumin Triglycerides Cholesterol LDL Cholesterol Direct HDL Cholesterol 25-OH Vitamin D Total PTH Intact Urine pH Urine WBC (Auto) Urine Creatinine Urine Total Protein Fluid Total Protein Vancomycin Trough Rheumatoid Factor Complement C4 Miscellaneous Test Crossmatch 02/06/17 02/06/17 02/06/17 04:45 05:58 12:01 WBC RBC Hgb Hct MCV MCH MCHC RDW Plt Count Lymph % (Auto) [place] % (Auto) Lymph # [place] # Baso # Seg Neutrophils % Seg Neuts % (Manual) Lymphocytes % (Manual) Monocytes % (Manual) Eosinophils % (Manual) Basophils % (Manual) Nucleated RBC % Seg Neutrophils # Seg Neutrophils # Man Lymphocytes # (Manual) Monocytes # (Manual) Eosinophils # (Manual) Basophils # (Manual) PT INR Fibrinogen dRVVT Confirm Interp Factor V Activity POC ABG pH POC ABG pCO2 POC ABG pO2 ABG pO2 ABG HCO3 ABG Base Excess ABG Hemoglobin Oxyhemoglobin Sodium Potassium Chloride Carbon Dioxide BUN 101 H Creatinine 2.0 H Glucose 102 H POC Glucose 115 H 132 H Lactic Acid Calcium 10.6 H Ionized Calcium Phosphorus Magnesium Direct Bilirubin AST ALT Alkaline Phosphatase 199 H Lactate Dehydrogenase Troponin T C-Reactive Protein Total Protein Albumin 1.4 L Prealbumin Triglycerides Cholesterol LDL Cholesterol Direct HDL Cholesterol 25-OH Vitamin D Total PTH Intact Urine pH Urine WBC (Auto) Urine Creatinine Urine Total Protein Fluid Total Protein Vancomycin Trough Rheumatoid Factor Complement C4 Miscellaneous Test Crossmatch 02/06/17 02/06/17 02/07/17 17:41 23:32 05:04 WBC RBC Hgb Hct MCV MCH MCHC RDW Plt Count Lymph % (Auto) [place] % (Auto) Lymph # [place] # Baso # Seg Neutrophils % Seg Neuts % (Manual) Lymphocytes % (Manual) Monocytes % (Manual) Eosinophils % (Manual) Basophils % (Manual) Nucleated RBC % Seg Neutrophils # Seg Neutrophils # Man Lymphocytes # (Manual) Monocytes # (Manual) Eosinophils # (Manual) Basophils # (Manual) PT INR Fibrinogen dRVVT Confirm Interp Factor V Activity POC ABG pH POC ABG pCO2 POC ABG pO2 ABG pO2 ABG HCO3 ABG Base Excess ABG Hemoglobin Oxyhemoglobin Sodium Potassium Chloride Carbon Dioxide BUN Creatinine Glucose POC Glucose 134 H 128 H 119 H Lactic Acid Calcium Ionized Calcium Phosphorus Magnesium Direct Bilirubin AST ALT Alkaline Phosphatase Lactate Dehydrogenase Troponin T C-Reactive Protein Total Protein Albumin Prealbumin Triglycerides Cholesterol LDL Cholesterol Direct HDL Cholesterol 25-OH Vitamin D Total PTH Intact Urine pH Urine WBC (Auto) Urine Creatinine Urine Total Protein Fluid Total Protein Vancomycin Trough Rheumatoid Factor Complement C4 Miscellaneous Test Crossmatch 02/07/17 02/07/17 02/07/17 06:30 11:20 17:13 WBC RBC Hgb Hct MCV MCH MCHC RDW Plt Count Lymph % (Auto) [place] % (Auto) Lymph # [place] # Baso # Seg Neutrophils % Seg Neuts % (Manual) Lymphocytes % (Manual) Monocytes % (Manual) Eosinophils % (Manual) Basophils % (Manual) Nucleated RBC % Seg Neutrophils # Seg Neutrophils # Man Lymphocytes # (Manual) Monocytes # (Manual) Eosinophils # (Manual) Basophils # (Manual) PT INR Fibrinogen dRVVT Confirm Interp Factor V Activity POC ABG pH POC ABG pCO2 POC ABG pO2 ABG pO2 ABG HCO3 ABG Base Excess ABG Hemoglobin Oxyhemoglobin Sodium Potassium 3.4 L Chloride Carbon Dioxide BUN 69 H Creatinine 1.5 H Glucose 105 H POC Glucose 117 H 110 H Lactic Acid Calcium Ionized Calcium Phosphorus Magnesium 1.50 L Direct Bilirubin AST ALT Alkaline Phosphatase Lactate Dehydrogenase Troponin T C-Reactive Protein Total Protein Albumin Prealbumin Triglycerides Cholesterol LDL Cholesterol Direct HDL Cholesterol 25-OH Vitamin D Total PTH Intact Urine pH Urine WBC (Auto) Urine Creatinine Urine Total Protein Fluid Total Protein Vancomycin Trough Rheumatoid Factor Complement C4 Miscellaneous Test Crossmatch 02/07/17 02/08/17 02/08/17 20:47 04:00 11:43 WBC RBC Hgb Hct MCV MCH MCHC RDW Plt Count Lymph % (Auto) [place] % (Auto) Lymph # [place] # Baso # Seg Neutrophils % Seg Neuts % (Manual) Lymphocytes % (Manual) Monocytes % (Manual) Eosinophils % (Manual) Basophils % (Manual) Nucleated RBC % Seg Neutrophils # Seg Neutrophils # Man Lymphocytes # (Manual) Monocytes # (Manual) Eosinophils # (Manual) Basophils # (Manual) PT INR Fibrinogen dRVVT Confirm Interp Factor V Activity POC ABG pH POC ABG pCO2 POC ABG pO2 ABG pO2 ABG HCO3 ABG Base Excess ABG Hemoglobin Oxyhemoglobin Sodium Potassium Chloride Carbon Dioxide BUN 86 H Creatinine 1.7 H Glucose POC Glucose 115 H 122 H Lactic Acid Calcium Ionized Calcium Phosphorus Magnesium 1.60 L Direct Bilirubin AST ALT Alkaline Phosphatase Lactate Dehydrogenase Troponin T C-Reactive Protein Total Protein Albumin Prealbumin Triglycerides Cholesterol LDL Cholesterol Direct HDL Cholesterol 25-OH Vitamin D Total PTH Intact Urine pH Urine WBC (Auto) Urine Creatinine Urine Total Protein Fluid Total Protein Vancomycin Trough Rheumatoid Factor Complement C4 Miscellaneous Test Crossmatch 02/08/17 02/09/17 02/09/17 17:36 05:44 11:30 WBC RBC Hgb Hct MCV MCH MCHC RDW Plt Count Lymph % (Auto) [place] % (Auto) Lymph # [place] # Baso # Seg Neutrophils % Seg Neuts % (Manual) Lymphocytes % (Manual) Monocytes % (Manual) Eosinophils % (Manual) Basophils % (Manual) Nucleated RBC % Seg Neutrophils # Seg Neutrophils # Man Lymphocytes # (Manual) Monocytes # (Manual) Eosinophils # (Manual) Basophils # (Manual) PT INR Fibrinogen dRVVT Confirm Interp Factor V Activity POC ABG pH POC ABG pCO2 POC ABG pO2 ABG pO2 ABG HCO3 ABG Base Excess ABG Hemoglobin Oxyhemoglobin Sodium Potassium Chloride Carbon Dioxide BUN Creatinine Glucose POC Glucose 125 H 117 H 120 H Lactic Acid Calcium Ionized Calcium Phosphorus Magnesium Direct Bilirubin AST ALT Alkaline Phosphatase Lactate Dehydrogenase Troponin T C-Reactive Protein Total Protein Albumin Prealbumin Triglycerides Cholesterol LDL Cholesterol Direct HDL Cholesterol 25-OH Vitamin D Total PTH Intact Urine pH Urine WBC (Auto) Urine Creatinine Urine Total Protein Fluid Total Protein Vancomycin Trough Rheumatoid Factor Complement C4 Miscellaneous Test Crossmatch 02/09/17 02/10/17 02/10/17 23:45 05:45 05:50 WBC RBC Hgb Hct MCV MCH MCHC RDW Plt Count Lymph % (Auto) [place] % (Auto) Lymph # [place] # Baso # Seg Neutrophils % Seg Neuts % (Manual) Lymphocytes % (Manual) Monocytes % (Manual) Eosinophils % (Manual) Basophils % (Manual) Nucleated RBC % Seg Neutrophils # Seg Neutrophils # Man Lymphocytes # (Manual) Monocytes # (Manual) Eosinophils # (Manual) Basophils # (Manual) PT INR Fibrinogen dRVVT Confirm Interp Factor V Activity POC ABG pH POC ABG pCO2 POC ABG pO2 ABG pO2 ABG HCO3 ABG Base Excess ABG Hemoglobin Oxyhemoglobin Sodium Potassium Chloride Carbon Dioxide BUN 85 H Creatinine 1.8 H Glucose 109 H POC Glucose 114 H 189 H Lactic Acid Calcium Ionized Calcium Phosphorus Magnesium 2.50 H Direct Bilirubin AST ALT Alkaline Phosphatase Lactate Dehydrogenase Troponin T C-Reactive Protein Total Protein Albumin Prealbumin Triglycerides Cholesterol LDL Cholesterol Direct HDL Cholesterol 25-OH Vitamin D Total PTH Intact Urine pH Urine WBC (Auto) Urine Creatinine Urine Total Protein Fluid Total Protein Vancomycin Trough Rheumatoid Factor Complement C4 Miscellaneous Test Crossmatch 02/10/17 02/10/17 02/10/17 05:51 11:55 17:42 WBC RBC Hgb Hct MCV MCH MCHC RDW Plt Count Lymph % (Auto) [place] % (Auto) Lymph # [place] # Baso # Seg Neutrophils % Seg Neuts % (Manual) Lymphocytes % (Manual) Monocytes % (Manual) Eosinophils % (Manual) Basophils % (Manual) Nucleated RBC % Seg Neutrophils # Seg Neutrophils # Man Lymphocytes # (Manual) Monocytes # (Manual) Eosinophils # (Manual) Basophils # (Manual) PT INR Fibrinogen dRVVT Confirm Interp Factor V Activity POC ABG pH POC ABG pCO2 POC ABG pO2 ABG pO2 ABG HCO3 ABG Base Excess ABG Hemoglobin Oxyhemoglobin Sodium Potassium Chloride Carbon Dioxide BUN Creatinine Glucose POC Glucose 106 H 146 H 132 H Lactic Acid Calcium Ionized Calcium Phosphorus Magnesium Direct Bilirubin AST ALT Alkaline Phosphatase Lactate Dehydrogenase Troponin T C-Reactive Protein Total Protein Albumin Prealbumin Triglycerides Cholesterol LDL Cholesterol Direct HDL Cholesterol 25-OH Vitamin D Total PTH Intact Urine pH Urine WBC (Auto) Urine Creatinine Urine Total Protein Fluid Total Protein Vancomycin Trough Rheumatoid Factor Complement C4 Miscellaneous Test Crossmatch 02/10/17 02/11/17 02/11/17 23:43 04:08 05:34 WBC RBC Hgb Hct MCV MCH MCHC RDW Plt Count Lymph % (Auto) [place] % (Auto) Lymph # [place] # Baso # Seg Neutrophils % Seg Neuts % (Manual) Lymphocytes % (Manual) Monocytes % (Manual) Eosinophils % (Manual) Basophils % (Manual) Nucleated RBC % Seg Neutrophils # Seg Neutrophils # Man Lymphocytes # (Manual) Monocytes # (Manual) Eosinophils # (Manual) Basophils # (Manual) PT INR Fibrinogen dRVVT Confirm Interp Factor V Activity POC ABG pH POC ABG pCO2 POC ABG pO2 ABG pO2 ABG HCO3 ABG Base Excess ABG Hemoglobin Oxyhemoglobin Sodium 136 L Potassium Chloride Carbon Dioxide BUN 65 H Creatinine 1.7 H Glucose 105 H POC Glucose 130 H 113 H Lactic Acid Calcium Ionized Calcium Phosphorus Magnesium Direct Bilirubin AST ALT Alkaline Phosphatase Lactate Dehydrogenase Troponin T C-Reactive Protein Total Protein Albumin Prealbumin Triglycerides Cholesterol LDL Cholesterol Direct HDL Cholesterol 25-OH Vitamin D Total PTH Intact Urine pH Urine WBC (Auto) Urine Creatinine Urine Total Protein Fluid Total Protein Vancomycin Trough Rheumatoid Factor Complement C4 Miscellaneous Test Crossmatch 02/11/17 02/11/17 02/12/17 11:56 23:18 06:19 WBC RBC Hgb Hct MCV MCH MCHC RDW Plt Count Lymph % (Auto) [place] % (Auto) Lymph # [place] # Baso # Seg Neutrophils % Seg Neuts % (Manual) Lymphocytes % (Manual) Monocytes % (Manual) Eosinophils % (Manual) Basophils % (Manual) Nucleated RBC % Seg Neutrophils # Seg Neutrophils # Man Lymphocytes # (Manual) Monocytes # (Manual) Eosinophils # (Manual) Basophils # (Manual) PT INR Fibrinogen dRVVT Confirm Interp Factor V Activity POC ABG pH POC ABG pCO2 POC ABG pO2 ABG pO2 ABG HCO3 ABG Base Excess ABG Hemoglobin Oxyhemoglobin Sodium 136 L Potassium Chloride 97.1 L Carbon Dioxide BUN 93 H Creatinine 2.4 H Glucose POC Glucose 126 H 119 H Lactic Acid Calcium 11.0 H Ionized Calcium Phosphorus Magnesium Direct Bilirubin AST ALT Alkaline Phosphatase Lactate Dehydrogenase Troponin T C-Reactive Protein Total Protein Albumin Prealbumin Triglycerides Cholesterol LDL Cholesterol Direct HDL Cholesterol 25-OH Vitamin D Total PTH Intact Urine pH Urine WBC (Auto) Urine Creatinine Urine Total Protein Fluid Total Protein Vancomycin Trough Rheumatoid Factor Complement C4 Miscellaneous Test Crossmatch 02/12/17 02/12/17 02/12/17 08:00 10:25 11:42 WBC 15.4 H RBC 2.63 L Hgb 6.9 L Hct 22.6 L MCV MCH 26 L MCHC RDW 20.5 H Plt Count Lymph % (Auto) [place] % (Auto) Lymph # [place] # Baso # Seg Neutrophils % Seg Neuts % (Manual) Lymphocytes % (Manual) Monocytes % (Manual) Eosinophils % (Manual) Basophils % (Manual) Nucleated RBC % Seg Neutrophils # Seg Neutrophils # Man Lymphocytes # (Manual) Monocytes # (Manual) Eosinophils # (Manual) Basophils # (Manual) PT INR Fibrinogen dRVVT Confirm Interp Factor V Activity POC ABG pH POC ABG pCO2 POC ABG pO2 ABG pO2 ABG HCO3 ABG Base Excess ABG Hemoglobin Oxyhemoglobin Sodium Potassium Chloride Carbon Dioxide BUN Creatinine Glucose POC Glucose 142 H Lactic Acid Calcium Ionized Calcium Phosphorus Magnesium Direct Bilirubin AST ALT Alkaline Phosphatase Lactate Dehydrogenase Troponin T C-Reactive Protein Total Protein Albumin Prealbumin Triglycerides Cholesterol LDL Cholesterol Direct HDL Cholesterol 25-OH Vitamin D Total PTH Intact Urine pH Urine WBC (Auto) Urine Creatinine Urine Total Protein Fluid Total Protein Vancomycin Trough Rheumatoid Factor Complement C4 Miscellaneous Test Crossmatch See Detail 02/12/17 02/13/17 02/13/17 18:04 00:04 05:00 WBC RBC Hgb Hct MCV MCH MCHC RDW Plt Count Lymph % (Auto) [place] % (Auto) Lymph # [place] # Baso # Seg Neutrophils % Seg Neuts % (Manual) Lymphocytes % (Manual) Monocytes % (Manual) Eosinophils % (Manual) Basophils % (Manual) Nucleated RBC % Seg Neutrophils # Seg Neutrophils # Man Lymphocytes # (Manual) Monocytes # (Manual) Eosinophils # (Manual) Basophils # (Manual) PT INR Fibrinogen dRVVT Confirm Interp Factor V Activity POC ABG pH POC ABG pCO2 POC ABG pO2 ABG pO2 ABG HCO3 ABG Base Excess ABG Hemoglobin Oxyhemoglobin Sodium 134 L Potassium Chloride 96.1 L Carbon Dioxide 20 L BUN 125 H Creatinine 3.0 H Glucose 111 H POC Glucose 135 H 109 H Lactic Acid Calcium 11.3 H Ionized Calcium Phosphorus Magnesium Direct Bilirubin AST ALT Alkaline Phosphatase Lactate Dehydrogenase Troponin T C-Reactive Protein Total Protein Albumin Prealbumin Triglycerides Cholesterol LDL Cholesterol Direct HDL Cholesterol 25-OH Vitamin D Total PTH Intact Urine pH Urine WBC (Auto) Urine Creatinine Urine Total Protein Fluid Total Protein Vancomycin Trough Rheumatoid Factor Complement C4 Miscellaneous Test Crossmatch 02/13/17 02/13/17 02/13/17 05:00 05:28 12:03 WBC 11.9 H RBC 2.92 L Hgb 7.8 L Hct 25.2 L MCV MCH 27 L MCHC RDW 19.3 H Plt Count Lymph % (Auto) [place] % (Auto) Lymph # [place] # Baso # Seg Neutrophils % Seg Neuts % (Manual) Lymphocytes % (Manual) Monocytes % (Manual) Eosinophils % (Manual) Basophils % (Manual) Nucleated RBC % Seg Neutrophils # Seg Neutrophils # Man Lymphocytes # (Manual) Monocytes # (Manual) Eosinophils # (Manual) Basophils # (Manual) PT INR Fibrinogen dRVVT Confirm Interp Factor V Activity POC ABG pH POC ABG pCO2 POC ABG pO2 ABG pO2 ABG HCO3 ABG Base Excess ABG Hemoglobin Oxyhemoglobin Sodium Potassium Chloride Carbon Dioxide BUN Creatinine Glucose POC Glucose 124 H 160 H Lactic Acid Calcium Ionized Calcium Phosphorus Magnesium Direct Bilirubin AST ALT Alkaline Phosphatase Lactate Dehydrogenase Troponin T C-Reactive Protein Total Protein Albumin Prealbumin Triglycerides Cholesterol LDL Cholesterol Direct HDL Cholesterol 25-OH Vitamin D Total PTH Intact Urine pH Urine WBC (Auto) Urine Creatinine Urine Total Protein Fluid Total Protein Vancomycin Trough Rheumatoid Factor Complement C4 Miscellaneous Test Crossmatch 02/13/17 02/14/17 02/14/17 18:09 06:16 08:08 WBC 15.2 H RBC 2.97 L Hgb 8.1 L Hct 26.3 L MCV MCH MCHC RDW 19.3 H Plt Count Lymph % (Auto) [place] % (Auto) Lymph # [place] # Baso # Seg Neutrophils % Seg Neuts % (Manual) Lymphocytes % (Manual) Monocytes % (Manual) Eosinophils % (Manual) Basophils % (Manual) Nucleated RBC % Seg Neutrophils # Seg Neutrophils # Man Lymphocytes # (Manual) Monocytes # (Manual) Eosinophils # (Manual) Basophils # (Manual) PT INR Fibrinogen dRVVT Confirm Interp Factor V Activity POC ABG pH POC ABG pCO2 POC ABG pO2 ABG pO2 ABG HCO3 ABG Base Excess ABG Hemoglobin Oxyhemoglobin Sodium Potassium Chloride Carbon Dioxide BUN Creatinine Glucose POC Glucose 110 H 112 H Lactic Acid Calcium Ionized Calcium Phosphorus Magnesium Direct Bilirubin AST ALT Alkaline Phosphatase Lactate Dehydrogenase Troponin T C-Reactive Protein Total Protein Albumin Prealbumin Triglycerides Cholesterol LDL Cholesterol Direct HDL Cholesterol 25-OH Vitamin D Total PTH Intact Urine pH Urine WBC (Auto) Urine Creatinine Urine Total Protein Fluid Total Protein Vancomycin Trough Rheumatoid Factor Complement C4 Miscellaneous Test Crossmatch 02/14/17 02/14/17 02/15/17 08:08 17:41 04:15 WBC RBC Hgb Hct MCV MCH MCHC RDW Plt Count Lymph % (Auto) [place] % (Auto) Lymph # [place] # Baso # Seg Neutrophils % Seg Neuts % (Manual) Lymphocytes % (Manual) Monocytes % (Manual) Eosinophils % (Manual) Basophils % (Manual) Nucleated RBC % Seg Neutrophils # Seg Neutrophils # Man Lymphocytes # (Manual) Monocytes # (Manual) Eosinophils # (Manual) Basophils # (Manual) PT INR Fibrinogen dRVVT Confirm Interp Factor V Activity POC ABG pH POC ABG pCO2 POC ABG pO2 ABG pO2 ABG HCO3 ABG Base Excess ABG Hemoglobin Oxyhemoglobin Sodium Potassium Chloride Carbon Dioxide 18 L 21 L BUN 79 H 113 H Creatinine 2.1 H 2.8 H Glucose POC Glucose 118 H Lactic Acid Calcium 10.7 H Ionized Calcium Phosphorus 1.70 L D Magnesium 1.60 L Direct Bilirubin AST ALT Alkaline Phosphatase Lactate Dehydrogenase Troponin T C-Reactive Protein Total Protein Albumin Prealbumin Triglycerides Cholesterol LDL Cholesterol Direct HDL Cholesterol 25-OH Vitamin D Total PTH Intact Urine pH Urine WBC (Auto) Urine Creatinine Urine Total Protein Fluid Total Protein Vancomycin Trough Rheumatoid Factor Complement C4 Miscellaneous Test Crossmatch 02/15/17 02/15/17 02/15/17 06:06 11:31 17:52 WBC RBC Hgb Hct MCV MCH MCHC RDW Plt Count Lymph % (Auto) [place] % (Auto) Lymph # [place] # Baso # Seg Neutrophils % Seg Neuts % (Manual) Lymphocytes % (Manual) Monocytes % (Manual) Eosinophils % (Manual) Basophils % (Manual) Nucleated RBC % Seg Neutrophils # Seg Neutrophils # Man Lymphocytes # (Manual) Monocytes # (Manual) Eosinophils # (Manual) Basophils # (Manual) PT INR Fibrinogen dRVVT Confirm Interp Factor V Activity POC ABG pH POC ABG pCO2 POC ABG pO2 ABG pO2 ABG HCO3 ABG Base Excess ABG Hemoglobin Oxyhemoglobin Sodium Potassium Chloride Carbon Dioxide BUN Creatinine Glucose POC Glucose 115 H 129 H 201 H Lactic Acid Calcium Ionized Calcium Phosphorus Magnesium Direct Bilirubin AST ALT Alkaline Phosphatase Lactate Dehydrogenase Troponin T C-Reactive Protein Total Protein Albumin Prealbumin Triglycerides Cholesterol LDL Cholesterol Direct HDL Cholesterol 25-OH Vitamin D Total PTH Intact Urine pH Urine WBC (Auto) Urine Creatinine Urine Total Protein Fluid Total Protein Vancomycin Trough Rheumatoid Factor Complement C4 Miscellaneous Test Crossmatch 02/15/17 02/15/17 02/15/17 19:08 19:08 19:08 WBC RBC Hgb Hct MCV MCH MCHC RDW Plt Count Lymph % (Auto) [place] % (Auto) Lymph # [place] # Baso # Seg Neutrophils % Seg Neuts % (Manual) Lymphocytes % (Manual) Monocytes % (Manual) Eosinophils % (Manual) Basophils % (Manual) Nucleated RBC % Seg Neutrophils # Seg Neutrophils # Man Lymphocytes # (Manual) Monocytes # (Manual) Eosinophils # (Manual) Basophils # (Manual) PT INR Fibrinogen dRVVT Confirm Interp Factor V Activity POC ABG pH POC ABG pCO2 POC ABG pO2 ABG pO2 ABG HCO3 ABG Base Excess ABG Hemoglobin Oxyhemoglobin Sodium Potassium Chloride Carbon Dioxide BUN Creatinine Glucose POC Glucose Lactic Acid Calcium Ionized Calcium 6.0 H Phosphorus Magnesium Direct Bilirubin AST ALT Alkaline Phosphatase Lactate Dehydrogenase Troponin T C-Reactive Protein Total Protein Albumin Prealbumin Triglycerides Cholesterol LDL Cholesterol Direct HDL Cholesterol 25-OH Vitamin D Total 13 L PTH Intact 10.88 L Urine pH Urine WBC (Auto) Urine Creatinine Urine Total Protein Fluid Total Protein Vancomycin Trough Rheumatoid Factor Complement C4 Miscellaneous Test Crossmatch 02/16/17 02/16/17 02/16/17 05:12 06:00 12:39 WBC RBC Hgb Hct MCV MCH MCHC RDW Plt Count Lymph % (Auto) [place] % (Auto) Lymph # [place] # Baso # Seg Neutrophils % Seg Neuts % (Manual) Lymphocytes % (Manual) Monocytes % (Manual) Eosinophils % (Manual) Basophils % (Manual) Nucleated RBC % Seg Neutrophils # Seg Neutrophils # Man Lymphocytes # (Manual) Monocytes # (Manual) Eosinophils # (Manual) Basophils # (Manual) PT INR Fibrinogen dRVVT Confirm Interp Factor V Activity POC ABG pH POC ABG pCO2 POC ABG pO2 ABG pO2 ABG HCO3 ABG Base Excess ABG Hemoglobin Oxyhemoglobin Sodium Potassium Chloride Carbon Dioxide BUN 74 H Creatinine 1.7 H Glucose 102 H POC Glucose 125 H 109 H Lactic Acid Calcium Ionized Calcium Phosphorus 2.10 L D Magnesium Direct Bilirubin AST ALT Alkaline Phosphatase Lactate Dehydrogenase Troponin T C-Reactive Protein Total Protein Albumin Prealbumin Triglycerides Cholesterol LDL Cholesterol Direct HDL Cholesterol 25-OH Vitamin D Total PTH Intact Urine pH Urine WBC (Auto) Urine Creatinine Urine Total Protein Fluid Total Protein Vancomycin Trough Rheumatoid Factor Complement C4 Miscellaneous Test Crossmatch 02/16/17 02/16/17 02/17/17 17:31 23:57 05:30 WBC RBC Hgb Hct MCV MCH MCHC RDW Plt Count Lymph % (Auto) [place] % (Auto) Lymph # [place] # Baso # Seg Neutrophils % Seg Neuts % (Manual) Lymphocytes % (Manual) Monocytes % (Manual) Eosinophils % (Manual) Basophils % (Manual) Nucleated RBC % Seg Neutrophils # Seg Neutrophils # Man Lymphocytes # (Manual) Monocytes # (Manual) Eosinophils # (Manual) Basophils # (Manual) PT INR Fibrinogen dRVVT Confirm Interp Factor V Activity POC ABG pH POC ABG pCO2 POC ABG pO2 ABG pO2 ABG HCO3 ABG Base Excess ABG Hemoglobin Oxyhemoglobin Sodium Potassium Chloride Carbon Dioxide BUN Creatinine Glucose POC Glucose 106 H 127 H 122 H Lactic Acid Calcium Ionized Calcium Phosphorus Magnesium Direct Bilirubin AST ALT Alkaline Phosphatase Lactate Dehydrogenase Troponin T C-Reactive Protein Total Protein Albumin Prealbumin Triglycerides Cholesterol LDL Cholesterol Direct HDL Cholesterol 25-OH Vitamin D Total PTH Intact Urine pH Urine WBC (Auto) Urine Creatinine Urine Total Protein Fluid Total Protein Vancomycin Trough Rheumatoid Factor Complement C4 Miscellaneous Test Crossmatch 02/17/17 02/17/17 02/17/17 06:00 12:17 17:57 WBC RBC Hgb Hct MCV MCH MCHC RDW Plt Count Lymph % (Auto) [place] % (Auto) Lymph # [place] # Baso # Seg Neutrophils % Seg Neuts % (Manual) Lymphocytes % (Manual) Monocytes % (Manual) Eosinophils % (Manual) Basophils % (Manual) Nucleated RBC % Seg Neutrophils # Seg Neutrophils # Man Lymphocytes # (Manual) Monocytes # (Manual) Eosinophils # (Manual) Basophils # (Manual) PT INR Fibrinogen dRVVT Confirm Interp Factor V Activity POC ABG pH POC ABG pCO2 POC ABG pO2 ABG pO2 ABG HCO3 ABG Base Excess ABG Hemoglobin Oxyhemoglobin Sodium Potassium Chloride Carbon Dioxide BUN 94 H Creatinine 2.3 H Glucose 106 H POC Glucose 173 H 140 H Lactic Acid Calcium Ionized Calcium Phosphorus Magnesium Direct Bilirubin AST ALT Alkaline Phosphatase Lactate Dehydrogenase Troponin T C-Reactive Protein Total Protein Albumin Prealbumin Triglycerides Cholesterol LDL Cholesterol Direct HDL Cholesterol 25-OH Vitamin D Total PTH Intact Urine pH Urine WBC (Auto) Urine Creatinine Urine Total Protein Fluid Total Protein Vancomycin Trough Rheumatoid Factor Complement C4 Miscellaneous Test Crossmatch 02/18/17 02/18/17 02/18/17 00:20 05:30 06:14 WBC RBC Hgb Hct MCV MCH MCHC RDW Plt Count Lymph % (Auto) [place] % (Auto) Lymph # [place] # Baso # Seg Neutrophils % Seg Neuts % (Manual) Lymphocytes % (Manual) Monocytes % (Manual) Eosinophils % (Manual) Basophils % (Manual) Nucleated RBC % Seg Neutrophils # Seg Neutrophils # Man Lymphocytes # (Manual) Monocytes # (Manual) Eosinophils # (Manual) Basophils # (Manual) PT INR Fibrinogen dRVVT Confirm Interp Factor V Activity POC ABG pH POC ABG pCO2 POC ABG pO2 ABG pO2 ABG HCO3 ABG Base Excess ABG Hemoglobin Oxyhemoglobin Sodium 136 L Potassium Chloride 97.5 L Carbon Dioxide BUN 73 H Creatinine 1.9 H Glucose POC Glucose 132 H 106 H Lactic Acid Calcium Ionized Calcium Phosphorus Magnesium Direct Bilirubin AST ALT Alkaline Phosphatase Lactate Dehydrogenase Troponin T C-Reactive Protein Total Protein Albumin Prealbumin Triglycerides Cholesterol LDL Cholesterol Direct HDL Cholesterol 25-OH Vitamin D Total PTH Intact Urine pH Urine WBC (Auto) Urine Creatinine Urine Total Protein Fluid Total Protein Vancomycin Trough Rheumatoid Factor Complement C4 Miscellaneous Test Crossmatch 02/18/17 02/18/17 02/18/17 09:51 11:32 17:59 WBC 13.1 H RBC 2.77 L Hgb 7.6 L Hct 23.9 L MCV MCH MCHC RDW 19.0 H Plt Count Lymph % (Auto) [place] % (Auto) 11.1 H Lymph # [place] # 1.5 H Baso # Seg Neutrophils % Seg Neuts % (Manual) Lymphocytes % (Manual) Monocytes % (Manual) Eosinophils % (Manual) Basophils % (Manual) Nucleated RBC % Seg Neutrophils # 9.1 H Seg Neutrophils # Man Lymphocytes # (Manual) Monocytes # (Manual) Eosinophils # (Manual) Basophils # (Manual) PT INR Fibrinogen dRVVT Confirm Interp Factor V Activity POC ABG pH POC ABG pCO2 POC ABG pO2 ABG pO2 ABG HCO3 ABG Base Excess ABG Hemoglobin Oxyhemoglobin Sodium Potassium Chloride Carbon Dioxide BUN Creatinine Glucose POC Glucose 123 H 119 H Lactic Acid Calcium Ionized Calcium Phosphorus Magnesium Direct Bilirubin AST ALT Alkaline Phosphatase Lactate Dehydrogenase Troponin T C-Reactive Protein Total Protein Albumin Prealbumin Triglycerides Cholesterol LDL Cholesterol Direct HDL Cholesterol 25-OH Vitamin D Total PTH Intact Urine pH Urine WBC (Auto) Urine Creatinine Urine Total Protein Fluid Total Protein Vancomycin Trough Rheumatoid Factor Complement C4 Miscellaneous Test Crossmatch 02/18/17 02/19/17 02/19/17 23:47 05:36 09:45 WBC RBC Hgb Hct MCV MCH 27 L MCHC RDW 19.2 H Plt Count Lymph % (Auto) [place] % (Auto) Lymph # [place] # Baso # Seg Neutrophils % Seg Neuts % (Manual) Lymphocytes % (Manual) Monocytes % (Manual) Eosinophils % (Manual) Basophils % (Manual) Nucleated RBC % Seg Neutrophils # Seg Neutrophils # Man Lymphocytes # (Manual) Monocytes # (Manual) Eosinophils # (Manual) Basophils # (Manual) PT INR Fibrinogen dRVVT Confirm Interp Factor V Activity POC ABG pH POC ABG pCO2 POC ABG pO2 ABG pO2 ABG HCO3 ABG Base Excess ABG Hemoglobin Oxyhemoglobin Sodium Potassium Chloride Carbon Dioxide BUN Creatinine Glucose POC Glucose 110 H 121 H Lactic Acid Calcium Ionized Calcium Phosphorus Magnesium Direct Bilirubin AST ALT Alkaline Phosphatase Lactate Dehydrogenase Troponin T C-Reactive Protein Total Protein Albumin Prealbumin Triglycerides Cholesterol LDL Cholesterol Direct HDL Cholesterol 25-OH Vitamin D Total PTH Intact Urine pH Urine WBC (Auto) Urine Creatinine Urine Total Protein Fluid Total Protein Vancomycin Trough Rheumatoid Factor Complement C4 Miscellaneous Test Crossmatch 02/19/17 02/20/17 02/20/17 09:45 00:10 06:15 WBC RBC Hgb Hct MCV MCH MCHC RDW Plt Count Lymph % (Auto) [place] % (Auto) Lymph # [place] # Baso # Seg Neutrophils % Seg Neuts % (Manual) Lymphocytes % (Manual) Monocytes % (Manual) Eosinophils % (Manual) Basophils % (Manual) Nucleated RBC % Seg Neutrophils # Seg Neutrophils # Man Lymphocytes # (Manual) Monocytes # (Manual) Eosinophils # (Manual) Basophils # (Manual) PT INR Fibrinogen dRVVT Confirm Interp Factor V Activity POC ABG pH POC ABG pCO2 POC ABG pO2 ABG pO2 ABG HCO3 ABG Base Excess ABG Hemoglobin Oxyhemoglobin Sodium 136 L Potassium 5.1 H Chloride 97.6 L Carbon Dioxide 20 L 18 L BUN 110 H 135 H Creatinine 2.6 H 3.2 H Glucose 106 H 110 H POC Glucose 117 H Lactic Acid Calcium Ionized Calcium Phosphorus 4.70 H D 5.60 H Magnesium Direct Bilirubin AST ALT Alkaline Phosphatase Lactate Dehydrogenase Troponin T C-Reactive Protein Total Protein Albumin Prealbumin Triglycerides Cholesterol LDL Cholesterol Direct HDL Cholesterol 25-OH Vitamin D Total PTH Intact Urine pH Urine WBC (Auto) Urine Creatinine Urine Total Protein Fluid Total Protein Vancomycin Trough Rheumatoid Factor Complement C4 Miscellaneous Test Crossmatch 02/20/17 02/20/17 02/21/17 11:30 17:51 00:14 WBC RBC Hgb Hct MCV MCH MCHC RDW Plt Count Lymph % (Auto) [place] % (Auto) Lymph # [place] # Baso # Seg Neutrophils % Seg Neuts % (Manual) Lymphocytes % (Manual) Monocytes % (Manual) Eosinophils % (Manual) Basophils % (Manual) Nucleated RBC % Seg Neutrophils # Seg Neutrophils # Man Lymphocytes # (Manual) Monocytes # (Manual) Eosinophils # (Manual) Basophils # (Manual) PT INR Fibrinogen dRVVT Confirm Interp Factor V Activity POC ABG pH POC ABG pCO2 POC ABG pO2 ABG pO2 ABG HCO3 ABG Base Excess ABG Hemoglobin Oxyhemoglobin Sodium Potassium Chloride Carbon Dioxide BUN Creatinine Glucose POC Glucose 173 H 133 H 125 H Lactic Acid Calcium Ionized Calcium Phosphorus Magnesium Direct Bilirubin AST ALT Alkaline Phosphatase Lactate Dehydrogenase Troponin T C-Reactive Protein Total Protein Albumin Prealbumin Triglycerides Cholesterol LDL Cholesterol Direct HDL Cholesterol 25-OH Vitamin D Total PTH Intact Urine pH Urine WBC (Auto) Urine Creatinine Urine Total Protein Fluid Total Protein Vancomycin Trough Rheumatoid Factor Complement C4 Miscellaneous Test Crossmatch 02/21/17 02/21/17 02/21/17 04:09 05:03 11:58 WBC RBC Hgb Hct MCV MCH MCHC RDW Plt Count Lymph % (Auto) [place] % (Auto) Lymph # [place] # Baso # Seg Neutrophils % Seg Neuts % (Manual) Lymphocytes % (Manual) Monocytes % (Manual) Eosinophils % (Manual) Basophils % (Manual) Nucleated RBC % Seg Neutrophils # Seg Neutrophils # Man Lymphocytes # (Manual) Monocytes # (Manual) Eosinophils # (Manual) Basophils # (Manual) PT INR Fibrinogen dRVVT Confirm Interp Factor V Activity POC ABG pH POC ABG pCO2 POC ABG pO2 ABG pO2 ABG HCO3 ABG Base Excess ABG Hemoglobin Oxyhemoglobin Sodium 135 L Potassium Chloride Carbon Dioxide 20 L BUN 76 H Creatinine 2.0 H Glucose 125 H POC Glucose 134 H 139 H Lactic Acid Calcium Ionized Calcium Phosphorus Magnesium Direct Bilirubin AST ALT Alkaline Phosphatase Lactate Dehydrogenase Troponin T C-Reactive Protein Total Protein Albumin Prealbumin Triglycerides Cholesterol LDL Cholesterol Direct HDL Cholesterol 25-OH Vitamin D Total PTH Intact Urine pH Urine WBC (Auto) Urine Creatinine Urine Total Protein Fluid Total Protein Vancomycin Trough Rheumatoid Factor Complement C4 Miscellaneous Test Crossmatch 02/21/17 02/21/17 02/22/17 17:16 23:41 04:10 WBC RBC Hgb Hct MCV MCH MCHC RDW Plt Count Lymph % (Auto) [place] % (Auto) Lymph # [place] # Baso # Seg Neutrophils % Seg Neuts % (Manual) Lymphocytes % (Manual) Monocytes % (Manual) Eosinophils % (Manual) Basophils % (Manual) Nucleated RBC % Seg Neutrophils # Seg Neutrophils # Man Lymphocytes # (Manual) Monocytes # (Manual) Eosinophils # (Manual) Basophils # (Manual) PT INR Fibrinogen dRVVT Confirm Interp Factor V Activity POC ABG pH POC ABG pCO2 POC ABG pO2 ABG pO2 ABG HCO3 ABG Base Excess ABG Hemoglobin Oxyhemoglobin Sodium 135 L Potassium Chloride 97.7 L Carbon Dioxide 21 L BUN 101 H Creatinine 2.5 H Glucose 116 H POC Glucose 120 H 128 H Lactic Acid Calcium Ionized Calcium Phosphorus Magnesium Direct Bilirubin AST ALT Alkaline Phosphatase Lactate Dehydrogenase Troponin T C-Reactive Protein Total Protein Albumin 1.3 L Prealbumin Triglycerides Cholesterol LDL Cholesterol Direct HDL Cholesterol 25-OH Vitamin D Total PTH Intact Urine pH Urine WBC (Auto) Urine Creatinine Urine Total Protein Fluid Total Protein Vancomycin Trough Rheumatoid Factor Complement C4 Miscellaneous Test Crossmatch 02/22/17 02/22/1718 06:03 11:38 18:19 WBC RBC Hgb Hct MCV MCH MCHC RDW Plt Count Lymph % (Auto) [place] % (Auto) Lymph # [place] # Baso # Seg Neutrophils % Seg Neuts % (Manual) Lymphocytes % (Manual) Monocytes % (Manual) Eosinophils % (Manual) Basophils % (Manual) Nucleated RBC % Seg Neutrophils # Seg Neutrophils # Man Lymphocytes # (Manual) Monocytes # (Manual) Eosinophils # (Manual) Basophils # (Manual) PT INR Fibrinogen dRVVT Confirm Interp Factor V Activity POC ABG pH POC ABG pCO2 POC ABG pO2 ABG pO2 ABG HCO3 ABG Base Excess ABG Hemoglobin Oxyhemoglobin Sodium Potassium Chloride Carbon Dioxide BUN Creatinine Glucose POC Glucose 126 H 147 H 121 H Lactic Acid Calcium Ionized Calcium Phosphorus Magnesium Direct Bilirubin AST ALT Alkaline Phosphatase Lactate Dehydrogenase Troponin T C-Reactive Protein Total Protein Albumin Prealbumin Triglycerides Cholesterol LDL Cholesterol Direct HDL Cholesterol 25-OH Vitamin D Total PTH Intact Urine pH Urine WBC (Auto) Urine Creatinine Urine Total Protein Fluid Total Protein Vancomycin Trough Rheumatoid Factor Complement C4 Miscellaneous Test Crossmatch 02/23/17 02/23/17 02/23/17 05:00 05:46 12:27 WBC RBC Hgb Hct MCV MCH MCHC RDW Plt Count Lymph % (Auto) [place] % (Auto) Lymph # [place] # Baso # Seg Neutrophils % Seg Neuts % (Manual) Lymphocytes % (Manual) Monocytes % (Manual) Eosinophils % (Manual) Basophils % (Manual) Nucleated RBC % Seg Neutrophils # Seg Neutrophils # Man Lymphocytes # (Manual) Monocytes # (Manual) Eosinophils # (Manual) Basophils # (Manual) PT INR Fibrinogen dRVVT Confirm Interp Factor V Activity POC ABG pH POC ABG pCO2 POC ABG pO2 ABG pO2 ABG HCO3 ABG Base Excess ABG Hemoglobin Oxyhemoglobin Sodium 136 L Potassium Chloride 97.1 L Carbon Dioxide BUN 50 H Creatinine 1.5 H Glucose POC Glucose 110 H 115 H Lactic Acid Calcium 8.1 L Ionized Calcium Phosphorus 1.90 L D Magnesium Direct Bilirubin AST ALT Alkaline Phosphatase Lactate Dehydrogenase Troponin T C-Reactive Protein Total Protein Albumin Prealbumin Triglycerides Cholesterol LDL Cholesterol Direct HDL Cholesterol 25-OH Vitamin D Total PTH Intact Urine pH Urine WBC (Auto) Urine Creatinine Urine Total Protein Fluid Total Protein Vancomycin Trough Rheumatoid Factor Complement C4 Miscellaneous Test Crossmatch 02/23/17 02/23/17 02/24/17 18:02 23:18 05:04 WBC RBC Hgb Hct MCV MCH MCHC RDW Plt Count Lymph % (Auto) [place] % (Auto) Lymph # [place] # Baso # Seg Neutrophils % Seg Neuts % (Manual) Lymphocytes % (Manual) Monocytes % (Manual) Eosinophils % (Manual) Basophils % (Manual) Nucleated RBC % Seg Neutrophils # Seg Neutrophils # Man Lymphocytes # (Manual) Monocytes # (Manual) Eosinophils # (Manual) Basophils # (Manual) PT INR Fibrinogen dRVVT Confirm Interp Factor V Activity POC ABG pH POC ABG pCO2 POC ABG pO2 ABG pO2 ABG HCO3 ABG Base Excess ABG Hemoglobin Oxyhemoglobin Sodium Potassium Chloride Carbon Dioxide BUN Creatinine Glucose POC Glucose 111 H 126 H 121 H Lactic Acid Calcium Ionized Calcium Phosphorus Magnesium Direct Bilirubin AST ALT Alkaline Phosphatase Lactate Dehydrogenase Troponin T C-Reactive Protein Total Protein Albumin Prealbumin Triglycerides Cholesterol LDL Cholesterol Direct HDL Cholesterol 25-OH Vitamin D Total PTH Intact Urine pH Urine WBC (Auto) Urine Creatinine Urine Total Protein Fluid Total Protein Vancomycin Trough Rheumatoid Factor Complement C4 Miscellaneous Test Crossmatch 02/24/17 02/24/17 02/24/17 05:20 10:05 11:34 WBC RBC 2.95 L Hgb 8.4 L Hct 25.7 L MCV MCH MCHC RDW 20.8 H Plt Count Lymph % (Auto) [place] % (Auto) Lymph # [place] # Baso # Seg Neutrophils % 71.8 H Seg Neuts % (Manual) Lymphocytes % (Manual) Monocytes % (Manual) Eosinophils % (Manual) Basophils % (Manual) Nucleated RBC % Seg Neutrophils # Seg Neutrophils # Man Lymphocytes # (Manual) Monocytes # (Manual) Eosinophils # (Manual) Basophils # (Manual) PT INR Fibrinogen dRVVT Confirm Interp Factor V Activity POC ABG pH POC ABG pCO2 POC ABG pO2 ABG pO2 ABG HCO3 ABG Base Excess ABG Hemoglobin Oxyhemoglobin Sodium 136 L Potassium Chloride 95.5 L Carbon Dioxide BUN 76 H Creatinine 2.2 H Glucose 109 H POC Glucose 123 H Lactic Acid Calcium Ionized Calcium Phosphorus Magnesium Direct Bilirubin AST ALT Alkaline Phosphatase Lactate Dehydrogenase Troponin T C-Reactive Protein Total Protein Albumin Prealbumin Triglycerides Cholesterol LDL Cholesterol Direct HDL Cholesterol 25-OH Vitamin D Total PTH Intact Urine pH Urine WBC (Auto) Urine Creatinine Urine Total Protein Fluid Total Protein Vancomycin Trough Rheumatoid Factor Complement C4 Miscellaneous Test Crossmatch 02/24/17 02/24/17 02/25/17 17:43 23:02 05:00 WBC RBC Hgb Hct MCV MCH MCHC RDW Plt Count Lymph % (Auto) [place] % (Auto) Lymph # [place] # Baso # Seg Neutrophils % Seg Neuts % (Manual) Lymphocytes % (Manual) Monocytes % (Manual) Eosinophils % (Manual) Basophils % (Manual) Nucleated RBC % Seg Neutrophils # Seg Neutrophils # Man Lymphocytes # (Manual) Monocytes # (Manual) Eosinophils # (Manual) Basophils # (Manual) PT INR Fibrinogen dRVVT Confirm Interp Factor V Activity POC ABG pH POC ABG pCO2 POC ABG pO2 ABG pO2 ABG HCO3 ABG Base Excess ABG Hemoglobin Oxyhemoglobin Sodium Potassium Chloride 96.8 L Carbon Dioxide BUN 94 H Creatinine 2.8 H Glucose 118 H POC Glucose 128 H 144 H Lactic Acid Calcium Ionized Calcium Phosphorus Magnesium Direct Bilirubin AST ALT Alkaline Phosphatase Lactate Dehydrogenase Troponin T C-Reactive Protein Total Protein Albumin Prealbumin Triglycerides Cholesterol LDL Cholesterol Direct HDL Cholesterol 25-OH Vitamin D Total PTH Intact Urine pH Urine WBC (Auto) Urine Creatinine Urine Total Protein Fluid Total Protein Vancomycin Trough Rheumatoid Factor Complement C4 Miscellaneous Test Crossmatch 02/25/17 02/25/17 02/25/17 05:32 11:44 18:18 WBC RBC Hgb Hct MCV MCH MCHC RDW Plt Count Lymph % (Auto) [place] % (Auto) Lymph # [place] # Baso # Seg Neutrophils % Seg Neuts % (Manual) Lymphocytes % (Manual) Monocytes % (Manual) Eosinophils % (Manual) Basophils % (Manual) Nucleated RBC % Seg Neutrophils # Seg Neutrophils # Man Lymphocytes # (Manual) Monocytes # (Manual) Eosinophils # (Manual) Basophils # (Manual) PT INR Fibrinogen dRVVT Confirm Interp Factor V Activity POC ABG pH POC ABG pCO2 POC ABG pO2 ABG pO2 ABG HCO3 ABG Base Excess ABG Hemoglobin Oxyhemoglobin Sodium Potassium Chloride Carbon Dioxide BUN Creatinine Glucose POC Glucose 118 H 106 H 210 H Lactic Acid Calcium Ionized Calcium Phosphorus Magnesium Direct Bilirubin AST ALT Alkaline Phosphatase Lactate Dehydrogenase Troponin T C-Reactive Protein Total Protein Albumin Prealbumin Triglycerides Cholesterol LDL Cholesterol Direct HDL Cholesterol 25-OH Vitamin D Total PTH Intact Urine pH Urine WBC (Auto) Urine Creatinine Urine Total Protein Fluid Total Protein Vancomycin Trough Rheumatoid Factor Complement C4 Miscellaneous Test Crossmatch 02/26/17 02/26/17 02/26/17 00:07 05:14 12:07 WBC RBC Hgb Hct MCV MCH MCHC RDW Plt Count Lymph % (Auto) [place] % (Auto) Lymph # [place] # Baso # Seg Neutrophils % Seg Neuts % (Manual) Lymphocytes % (Manual) Monocytes % (Manual) Eosinophils % (Manual) Basophils % (Manual) Nucleated RBC % Seg Neutrophils # Seg Neutrophils # Man Lymphocytes # (Manual) Monocytes # (Manual) Eosinophils # (Manual) Basophils # (Manual) PT INR Fibrinogen dRVVT Confirm Interp Factor V Activity POC ABG pH POC ABG pCO2 POC ABG pO2 ABG pO2 ABG HCO3 ABG Base Excess ABG Hemoglobin Oxyhemoglobin Sodium Potassium Chloride Carbon Dioxide BUN Creatinine Glucose POC Glucose 136 H 142 H 132 H Lactic Acid Calcium Ionized Calcium Phosphorus Magnesium Direct Bilirubin AST ALT Alkaline Phosphatase Lactate Dehydrogenase Troponin T C-Reactive Protein Total Protein Albumin Prealbumin Triglycerides Cholesterol LDL Cholesterol Direct HDL Cholesterol 25-OH Vitamin D Total PTH Intact Urine pH Urine WBC (Auto) Urine Creatinine Urine Total Protein Fluid Total Protein Vancomycin Trough Rheumatoid Factor Complement C4 Miscellaneous Test Crossmatch 02/26/17 02/26/17 02/27/17 18:35 23:54 06:25 WBC RBC Hgb Hct MCV MCH MCHC RDW Plt Count Lymph % (Auto) [place] % (Auto) Lymph # [place] # Baso # Seg Neutrophils % Seg Neuts % (Manual) Lymphocytes % (Manual) Monocytes % (Manual) Eosinophils % (Manual) Basophils % (Manual) Nucleated RBC % Seg Neutrophils # Seg Neutrophils # Man Lymphocytes # (Manual) Monocytes # (Manual) Eosinophils # (Manual) Basophils # (Manual) PT INR Fibrinogen dRVVT Confirm Interp Factor V Activity POC ABG pH POC ABG pCO2 POC ABG pO2 ABG pO2 ABG HCO3 ABG Base Excess ABG Hemoglobin Oxyhemoglobin Sodium Potassium Chloride Carbon Dioxide BUN Creatinine Glucose POC Glucose 155 H 150 H 138 H Lactic Acid Calcium Ionized Calcium Phosphorus Magnesium Direct Bilirubin AST ALT Alkaline Phosphatase Lactate Dehydrogenase Troponin T C-Reactive Protein Total Protein Albumin Prealbumin Triglycerides Cholesterol LDL Cholesterol Direct HDL Cholesterol 25-OH Vitamin D Total PTH Intact Urine pH Urine WBC (Auto) Urine Creatinine Urine Total Protein Fluid Total Protein Vancomycin Trough Rheumatoid Factor Complement C4 Miscellaneous Test Crossmatch 02/27/17 02/27/17 02/27/17 08:50 11:50 17:38 WBC RBC Hgb Hct MCV MCH MCHC RDW Plt Count Lymph % (Auto) [place] % (Auto) Lymph # [place] # Baso # Seg Neutrophils % Seg Neuts % (Manual) Lymphocytes % (Manual) Monocytes % (Manual) Eosinophils % (Manual) Basophils % (Manual) Nucleated RBC % Seg Neutrophils # Seg Neutrophils # Man Lymphocytes # (Manual) Monocytes # (Manual) Eosinophils # (Manual) Basophils # (Manual) PT INR Fibrinogen dRVVT Confirm Interp Factor V Activity POC ABG pH POC ABG pCO2 POC ABG pO2 ABG pO2 ABG HCO3 ABG Base Excess ABG Hemoglobin Oxyhemoglobin Sodium Potassium 3.2 L Chloride Carbon Dioxide BUN 95 H Creatinine 2.7 H Glucose 179 H POC Glucose 150 H 133 H Lactic Acid Calcium Ionized Calcium Phosphorus Magnesium Direct Bilirubin AST ALT Alkaline Phosphatase Lactate Dehydrogenase Troponin T C-Reactive Protein Total Protein Albumin Prealbumin Triglycerides Cholesterol LDL Cholesterol Direct HDL Cholesterol 25-OH Vitamin D Total PTH Intact Urine pH Urine WBC (Auto) Urine Creatinine Urine Total Protein Fluid Total Protein Vancomycin Trough Rheumatoid Factor Complement C4 Miscellaneous Test Crossmatch 02/27/17 02/28/17 02/28/17 23:55 05:23 06:10 WBC RBC Hgb Hct MCV MCH MCHC RDW Plt Count Lymph % (Auto) [place] % (Auto) Lymph # [place] # Baso # Seg Neutrophils % Seg Neuts % (Manual) Lymphocytes % (Manual) Monocytes % (Manual) Eosinophils % (Manual) Basophils % (Manual) Nucleated RBC % Seg Neutrophils # Seg Neutrophils # Man Lymphocytes # (Manual) Monocytes # (Manual) Eosinophils # (Manual) Basophils # (Manual) PT INR Fibrinogen dRVVT Confirm Interp Factor V Activity POC ABG pH POC ABG pCO2 POC ABG pO2 ABG pO2 ABG HCO3 ABG Base Excess ABG Hemoglobin Oxyhemoglobin Sodium 134 L Potassium 3.0 L Chloride 94.9 L Carbon Dioxide BUN 53 H Creatinine 1.9 H Glucose 138 H POC Glucose 134 H 164 H Lactic Acid Calcium Ionized Calcium Phosphorus 2.00 L D Magnesium Direct Bilirubin AST ALT Alkaline Phosphatase Lactate Dehydrogenase Troponin T C-Reactive Protein Total Protein Albumin Prealbumin Triglycerides Cholesterol LDL Cholesterol Direct HDL Cholesterol 25-OH Vitamin D Total PTH Intact Urine pH Urine WBC (Auto) Urine Creatinine Urine Total Protein Fluid Total Protein Vancomycin Trough Rheumatoid Factor Complement C4 Miscellaneous Test Crossmatch 02/28/17 02/28/17 02/28/17 12:18 17:54 23:47 WBC RBC Hgb Hct MCV MCH MCHC RDW Plt Count Lymph % (Auto) [place] % (Auto) Lymph # [place] # Baso # Seg Neutrophils % Seg Neuts % (Manual) Lymphocytes % (Manual) Monocytes % (Manual) Eosinophils % (Manual) Basophils % (Manual) Nucleated RBC % Seg Neutrophils # Seg Neutrophils # Man Lymphocytes # (Manual) Monocytes # (Manual) Eosinophils # (Manual) Basophils # (Manual) PT INR Fibrinogen dRVVT Confirm Interp Factor V Activity POC ABG pH POC ABG pCO2 POC ABG pO2 ABG pO2 ABG HCO3 ABG Base Excess ABG Hemoglobin Oxyhemoglobin Sodium Potassium Chloride Carbon Dioxide BUN Creatinine Glucose POC Glucose 135 H 140 H 144 H Lactic Acid Calcium Ionized Calcium Phosphorus Magnesium Direct Bilirubin AST ALT Alkaline Phosphatase Lactate Dehydrogenase Troponin T C-Reactive Protein Total Protein Albumin Prealbumin Triglycerides Cholesterol LDL Cholesterol Direct HDL Cholesterol 25-OH Vitamin D Total PTH Intact Urine pH Urine WBC (Auto) Urine Creatinine Urine Total Protein Fluid Total Protein Vancomycin Trough Rheumatoid Factor Complement C4 Miscellaneous Test Crossmatch 03/01/17 03/01/17 03/01/17 04:00 12:02 17:13 WBC RBC Hgb Hct MCV MCH MCHC RDW Plt Count Lymph % (Auto) [place] % (Auto) Lymph # [place] # Baso # Seg Neutrophils % Seg Neuts % (Manual) Lymphocytes % (Manual) Monocytes % (Manual) Eosinophils % (Manual) Basophils % (Manual) Nucleated RBC % Seg Neutrophils # Seg Neutrophils # Man Lymphocytes # (Manual) Monocytes # (Manual) Eosinophils # (Manual) Basophils # (Manual) PT INR Fibrinogen dRVVT Confirm Interp Factor V Activity POC ABG pH POC ABG pCO2 POC ABG pO2 ABG pO2 ABG HCO3 ABG Base Excess ABG Hemoglobin Oxyhemoglobin Sodium Potassium 3.0 L Chloride 97.0 L Carbon Dioxide BUN 81 H Creatinine 2.6 H Glucose 121 H POC Glucose 165 H 126 H Lactic Acid Calcium Ionized Calcium Phosphorus Magnesium Direct Bilirubin AST ALT Alkaline Phosphatase Lactate Dehydrogenase Troponin T C-Reactive Protein Total Protein Albumin Prealbumin Triglycerides Cholesterol LDL Cholesterol Direct HDL Cholesterol 25-OH Vitamin D Total PTH Intact Urine pH Urine WBC (Auto) Urine Creatinine Urine Total Protein Fluid Total Protein Vancomycin Trough Rheumatoid Factor Complement C4 Miscellaneous Test Crossmatch 03/02/17 03/02/17 03/02/17 00:10 03:05 05:20 WBC RBC Hgb Hct MCV MCH MCHC RDW Plt Count Lymph % (Auto) [place] % (Auto) Lymph # [place] # Baso # Seg Neutrophils % Seg Neuts % (Manual) Lymphocytes % (Manual) Monocytes % (Manual) Eosinophils % (Manual) Basophils % (Manual) Nucleated RBC % Seg Neutrophils # Seg Neutrophils # Man Lymphocytes # (Manual) Monocytes # (Manual) Eosinophils # (Manual) Basophils # (Manual) PT INR Fibrinogen dRVVT Confirm Interp Factor V Activity POC ABG pH POC ABG pCO2 POC ABG pO2 ABG pO2 ABG HCO3 ABG Base Excess ABG Hemoglobin Oxyhemoglobin Sodium Potassium 3.0 L Chloride Carbon Dioxide BUN 41 H Creatinine 1.6 H Glucose 130 H POC Glucose 129 H 173 H Lactic Acid Calcium Ionized Calcium Phosphorus 1.70 L D Magnesium 1.40 L Direct Bilirubin AST ALT Alkaline Phosphatase Lactate Dehydrogenase Troponin T C-Reactive Protein Total Protein Albumin Prealbumin Triglycerides Cholesterol LDL Cholesterol Direct HDL Cholesterol 25-OH Vitamin D Total PTH Intact Urine pH Urine WBC (Auto) Urine Creatinine Urine Total Protein Fluid Total Protein Vancomycin Trough Rheumatoid Factor Complement C4 Miscellaneous Test Crossmatch 03/02/17 03/02/17 03/02/17 11:49 16:38 23:46 WBC RBC Hgb Hct MCV MCH MCHC RDW Plt Count Lymph % (Auto) [place] % (Auto) Lymph # [place] # Baso # Seg Neutrophils % Seg Neuts % (Manual) Lymphocytes % (Manual) Monocytes % (Manual) Eosinophils % (Manual) Basophils % (Manual) Nucleated RBC % Seg Neutrophils # Seg Neutrophils # Man Lymphocytes # (Manual) Monocytes # (Manual) Eosinophils # (Manual) Basophils # (Manual) PT INR Fibrinogen dRVVT Confirm Interp Factor V Activity POC ABG pH POC ABG pCO2 POC ABG pO2 ABG pO2 ABG HCO3 ABG Base Excess ABG Hemoglobin Oxyhemoglobin Sodium Potassium Chloride Carbon Dioxide BUN Creatinine Glucose POC Glucose 129 H 141 H 119 H Lactic Acid Calcium Ionized Calcium Phosphorus Magnesium Direct Bilirubin AST ALT Alkaline Phosphatase Lactate Dehydrogenase Troponin T C-Reactive Protein Total Protein Albumin Prealbumin Triglycerides Cholesterol LDL Cholesterol Direct HDL Cholesterol 25-OH Vitamin D Total PTH Intact Urine pH Urine WBC (Auto) Urine Creatinine Urine Total Protein Fluid Total Protein Vancomycin Trough Rheumatoid Factor Complement C4 Miscellaneous Test Crossmatch 03/03/17 03/03/17 03/03/17 04:00 11:59 18:08 WBC RBC Hgb Hct MCV MCH MCHC RDW Plt Count Lymph % (Auto) [place] % (Auto) Lymph # [place] # Baso # Seg Neutrophils % Seg Neuts % (Manual) Lymphocytes % (Manual) Monocytes % (Manual) Eosinophils % (Manual) Basophils % (Manual) Nucleated RBC % Seg Neutrophils # Seg Neutrophils # Man Lymphocytes # (Manual) Monocytes # (Manual) Eosinophils # (Manual) Basophils # (Manual) PT INR Fibrinogen dRVVT Confirm Interp Factor V Activity POC ABG pH POC ABG pCO2 POC ABG pO2 ABG pO2 ABG HCO3 ABG Base Excess ABG Hemoglobin Oxyhemoglobin Sodium Potassium Chloride Carbon Dioxide BUN 70 H Creatinine 2.3 H Glucose POC Glucose 125 H 131 H Lactic Acid Calcium Ionized Calcium Phosphorus Magnesium Direct Bilirubin AST ALT Alkaline Phosphatase Lactate Dehydrogenase Troponin T C-Reactive Protein Total Protein Albumin Prealbumin Triglycerides Cholesterol LDL Cholesterol Direct HDL Cholesterol 25-OH Vitamin D Total PTH Intact Urine pH Urine WBC (Auto) Urine Creatinine Urine Total Protein Fluid Total Protein Vancomycin Trough Rheumatoid Factor Complement C4 Miscellaneous Test Crossmatch 03/03/17 03/03/17 03/04/17 20:17 23:43 05:21 WBC RBC Hgb Hct MCV MCH MCHC RDW Plt Count Lymph % (Auto) [place] % (Auto) Lymph # [place] # Baso # Seg Neutrophils % Seg Neuts % (Manual) Lymphocytes % (Manual) Monocytes % (Manual) Eosinophils % (Manual) Basophils % (Manual) Nucleated RBC % Seg Neutrophils # Seg Neutrophils # Man Lymphocytes # (Manual) Monocytes # (Manual) Eosinophils # (Manual) Basophils # (Manual) PT INR Fibrinogen dRVVT Confirm Interp Factor V Activity POC ABG pH 7.518 H POC ABG pCO2 28.8 L POC ABG pO2 61 L ABG pO2 ABG HCO3 ABG Base Excess ABG Hemoglobin Oxyhemoglobin Sodium Potassium Chloride Carbon Dioxide BUN Creatinine Glucose POC Glucose 122 H 130 H Lactic Acid Calcium Ionized Calcium Phosphorus Magnesium Direct Bilirubin AST ALT Alkaline Phosphatase Lactate Dehydrogenase Troponin T C-Reactive Protein Total Protein Albumin Prealbumin Triglycerides Cholesterol LDL Cholesterol Direct HDL Cholesterol 25-OH Vitamin D Total PTH Intact Urine pH Urine WBC (Auto) Urine Creatinine Urine Total Protein Fluid Total Protein Vancomycin Trough Rheumatoid Factor Complement C4 Miscellaneous Test Crossmatch 03/04/17 03/05/17 03/06/17 06:10 06:15 03:52 WBC RBC Hgb Hct MCV MCH MCHC RDW Plt Count Lymph % (Auto) [place] % (Auto) Lymph # [place] # Baso # Seg Neutrophils % Seg Neuts % (Manual) Lymphocytes % (Manual) Monocytes % (Manual) Eosinophils % (Manual) Basophils % (Manual) Nucleated RBC % Seg Neutrophils # Seg Neutrophils # Man Lymphocytes # (Manual) Monocytes # (Manual) Eosinophils # (Manual) Basophils # (Manual) PT INR Fibrinogen dRVVT Confirm Interp Factor V Activity POC ABG pH POC ABG pCO2 POC ABG pO2 ABG pO2 ABG HCO3 ABG Base Excess ABG Hemoglobin Oxyhemoglobin Sodium 135 L 136 L Potassium 5.2 H 5.9 H Chloride 95.8 L 97.7 L 96.0 L Carbon Dioxide 21 L 21 L BUN 40 H 56 H 70 H Creatinine 1.7 H 2.4 H 3.0 H Glucose 118 H POC Glucose Lactic Acid Calcium Ionized Calcium Phosphorus 4.80 H D 6.00 H D Magnesium 2.60 H Direct Bilirubin AST ALT Alkaline Phosphatase 165 H Lactate Dehydrogenase Troponin T C-Reactive Protein Total Protein Albumin 1.5 L Prealbumin Triglycerides Cholesterol LDL Cholesterol Direct HDL Cholesterol 25-OH Vitamin D Total PTH Intact Urine pH Urine WBC (Auto) Urine Creatinine Urine Total Protein Fluid Total Protein Vancomycin Trough Rheumatoid Factor Complement C4 Miscellaneous Test Crossmatch 03/06/17 03/06/17 03/06/17 11:19 18:40 23:39 WBC RBC Hgb Hct MCV MCH MCHC RDW Plt Count Lymph % (Auto) [place] % (Auto) Lymph # [place] # Baso # Seg Neutrophils % Seg Neuts % (Manual) Lymphocytes % (Manual) Monocytes % (Manual) Eosinophils % (Manual) Basophils % (Manual) Nucleated RBC % Seg Neutrophils # Seg Neutrophils # Man Lymphocytes # (Manual) Monocytes # (Manual) Eosinophils # (Manual) Basophils # (Manual) PT INR Fibrinogen dRVVT Confirm Interp Factor V Activity POC ABG pH POC ABG pCO2 POC ABG pO2 ABG pO2 ABG HCO3 ABG Base Excess ABG Hemoglobin Oxyhemoglobin Sodium Potassium Chloride Carbon Dioxide BUN Creatinine Glucose POC Glucose 108 H 110 H 156 H Lactic Acid Calcium Ionized Calcium Phosphorus Magnesium Direct Bilirubin AST ALT Alkaline Phosphatase Lactate Dehydrogenase Troponin T C-Reactive Protein Total Protein Albumin Prealbumin Triglycerides Cholesterol LDL Cholesterol Direct HDL Cholesterol 25-OH Vitamin D Total PTH Intact Urine pH Urine WBC (Auto) Urine Creatinine Urine Total Protein Fluid Total Protein Vancomycin Trough Rheumatoid Factor Complement C4 Miscellaneous Test Crossmatch 03/07/17 03/07/1718 06:04 11:56 23:31 WBC RBC Hgb Hct MCV MCH MCHC RDW Plt Count Lymph % (Auto) [place] % (Auto) Lymph # [place] # Baso # Seg Neutrophils % Seg Neuts % (Manual) Lymphocytes % (Manual) Monocytes % (Manual) Eosinophils % (Manual) Basophils % (Manual) Nucleated RBC % Seg Neutrophils # Seg Neutrophils # Man Lymphocytes # (Manual) Monocytes # (Manual) Eosinophils # (Manual) Basophils # (Manual) PT INR Fibrinogen dRVVT Confirm Interp Factor V Activity POC ABG pH POC ABG pCO2 POC ABG pO2 ABG pO2 ABG HCO3 ABG Base Excess ABG Hemoglobin Oxyhemoglobin Sodium Potassium Chloride 97.5 L Carbon Dioxide BUN 28 H Creatinine 1.5 H Glucose POC Glucose 106 H 131 H Lactic Acid Calcium 7.9 L Ionized Calcium Phosphorus Magnesium Direct Bilirubin AST ALT Alkaline Phosphatase Lactate Dehydrogenase Troponin T C-Reactive Protein Total Protein Albumin Prealbumin Triglycerides Cholesterol LDL Cholesterol Direct HDL Cholesterol 25-OH Vitamin D Total PTH Intact Urine pH Urine WBC (Auto) Urine Creatinine Urine Total Protein Fluid Total Protein Vancomycin Trough Rheumatoid Factor Complement C4 Miscellaneous Test Crossmatch 03/08/17 03/08/17 03/08/17 05:15 05:38 11:50 WBC RBC Hgb Hct MCV MCH MCHC RDW Plt Count Lymph % (Auto) [place] % (Auto) Lymph # [place] # Baso # Seg Neutrophils % Seg Neuts % (Manual) Lymphocytes % (Manual) Monocytes % (Manual) Eosinophils % (Manual) Basophils % (Manual) Nucleated RBC % Seg Neutrophils # Seg Neutrophils # Man Lymphocytes # (Manual) Monocytes # (Manual) Eosinophils # (Manual) Basophils # (Manual) PT INR Fibrinogen dRVVT Confirm Interp Factor V Activity POC ABG pH POC ABG pCO2 POC ABG pO2 ABG pO2 ABG HCO3 ABG Base Excess ABG Hemoglobin Oxyhemoglobin Sodium 135 L Potassium Chloride 96.6 L Carbon Dioxide 20 L BUN 46 H Creatinine 2.3 H D Glucose 117 H POC Glucose 156 H 131 H Lactic Acid Calcium Ionized Calcium Phosphorus Magnesium Direct Bilirubin AST ALT Alkaline Phosphatase Lactate Dehydrogenase Troponin T C-Reactive Protein Total Protein Albumin Prealbumin Triglycerides Cholesterol LDL Cholesterol Direct HDL Cholesterol 25-OH Vitamin D Total PTH Intact Urine pH Urine WBC (Auto) Urine Creatinine Urine Total Protein Fluid Total Protein Vancomycin Trough Rheumatoid Factor Complement C4 Miscellaneous Test Crossmatch 03/08/17 03/09/17 03/09/17 23:34 04:42 05:20 WBC RBC Hgb Hct MCV MCH MCHC RDW Plt Count Lymph % (Auto) [place] % (Auto) Lymph # [place] # Baso # Seg Neutrophils % Seg Neuts % (Manual) Lymphocytes % (Manual) Monocytes % (Manual) Eosinophils % (Manual) Basophils % (Manual) Nucleated RBC % Seg Neutrophils # Seg Neutrophils # Man Lymphocytes # (Manual) Monocytes # (Manual) Eosinophils # (Manual) Basophils # (Manual) PT INR Fibrinogen dRVVT Confirm Interp Factor V Activity POC ABG pH POC ABG pCO2 POC ABG pO2 ABG pO2 ABG HCO3 ABG Base Excess ABG Hemoglobin Oxyhemoglobin Sodium Potassium 3.2 L Chloride Carbon Dioxide BUN 30 H Creatinine 1.7 H Glucose 112 H POC Glucose 125 H 128 H Lactic Acid Calcium 8.2 L Ionized Calcium Phosphorus 1.80 L D Magnesium 1.40 L Direct Bilirubin AST ALT Alkaline Phosphatase Lactate Dehydrogenase Troponin T C-Reactive Protein Total Protein Albumin Prealbumin Triglycerides Cholesterol LDL Cholesterol Direct HDL Cholesterol 25-OH Vitamin D Total PTH Intact Urine pH Urine WBC (Auto) Urine Creatinine Urine Total Protein Fluid Total Protein Vancomycin Trough Rheumatoid Factor Complement C4 Miscellaneous Test Crossmatch 03/09/17 03/09/17 03/10/17 11:48 17:38 00:08 WBC RBC Hgb Hct MCV MCH MCHC RDW Plt Count Lymph % (Auto) [place] % (Auto) Lymph # [place] # Baso # Seg Neutrophils % Seg Neuts % (Manual) Lymphocytes % (Manual) Monocytes % (Manual) Eosinophils % (Manual) Basophils % (Manual) Nucleated RBC % Seg Neutrophils # Seg Neutrophils # Man Lymphocytes # (Manual) Monocytes # (Manual) Eosinophils # (Manual) Basophils # (Manual) PT INR Fibrinogen dRVVT Confirm Interp Factor V Activity POC ABG pH POC ABG pCO2 POC ABG pO2 ABG pO2 ABG HCO3 ABG Base Excess ABG Hemoglobin Oxyhemoglobin Sodium Potassium Chloride Carbon Dioxide BUN Creatinine Glucose POC Glucose 146 H 140 H 137 H Lactic Acid Calcium Ionized Calcium Phosphorus Magnesium Direct Bilirubin AST ALT Alkaline Phosphatase Lactate Dehydrogenase Troponin T C-Reactive Protein Total Protein Albumin Prealbumin Triglycerides Cholesterol LDL Cholesterol Direct HDL Cholesterol 25-OH Vitamin D Total PTH Intact Urine pH Urine WBC (Auto) Urine Creatinine Urine Total Protein Fluid Total Protein Vancomycin Trough Rheumatoid Factor Complement C4 Miscellaneous Test Crossmatch 03/10/17 03/10/17 03/10/17 04:46 06:37 11:22 WBC RBC Hgb Hct MCV MCH MCHC RDW Plt Count Lymph % (Auto) [place] % (Auto) Lymph # [place] # Baso # Seg Neutrophils % Seg Neuts % (Manual) Lymphocytes % (Manual) Monocytes % (Manual) Eosinophils % (Manual) Basophils % (Manual) Nucleated RBC % Seg Neutrophils # Seg Neutrophils # Man Lymphocytes # (Manual) Monocytes # (Manual) Eosinophils # (Manual) Basophils # (Manual) PT INR Fibrinogen dRVVT Confirm Interp Factor V Activity POC ABG pH POC ABG pCO2 POC ABG pO2 ABG pO2 ABG HCO3 ABG Base Excess ABG Hemoglobin Oxyhemoglobin Sodium 135 L Potassium Chloride 96.3 L Carbon Dioxide 21 L BUN 46 H Creatinine 2.2 H Glucose 106 H POC Glucose 115 H 151 H Lactic Acid Calcium 8.2 L Ionized Calcium Phosphorus Magnesium Direct Bilirubin AST ALT Alkaline Phosphatase Lactate Dehydrogenase Troponin T C-Reactive Protein Total Protein Albumin Prealbumin Triglycerides Cholesterol LDL Cholesterol Direct HDL Cholesterol 25-OH Vitamin D Total PTH Intact Urine pH Urine WBC (Auto) Urine Creatinine Urine Total Protein Fluid Total Protein Vancomycin Trough Rheumatoid Factor Complement C4 Miscellaneous Test Crossmatch 03/10/17 03/10/17 03/11/17 17:53 23:46 05:19 WBC RBC Hgb Hct MCV MCH MCHC RDW Plt Count Lymph % (Auto) [place] % (Auto) Lymph # [place] # Baso # Seg Neutrophils % Seg Neuts % (Manual) Lymphocytes % (Manual) Monocytes % (Manual) Eosinophils % (Manual) Basophils % (Manual) Nucleated RBC % Seg Neutrophils # Seg Neutrophils # Man Lymphocytes # (Manual) Monocytes # (Manual) Eosinophils # (Manual) Basophils # (Manual) PT INR Fibrinogen dRVVT Confirm Interp Factor V Activity POC ABG pH POC ABG pCO2 POC ABG pO2 ABG pO2 ABG HCO3 ABG Base Excess ABG Hemoglobin Oxyhemoglobin Sodium Potassium Chloride Carbon Dioxide BUN Creatinine Glucose POC Glucose 137 H 131 H 108 H Lactic Acid Calcium Ionized Calcium Phosphorus Magnesium Direct Bilirubin AST ALT Alkaline Phosphatase Lactate Dehydrogenase Troponin T C-Reactive Protein Total Protein Albumin Prealbumin Triglycerides Cholesterol LDL Cholesterol Direct HDL Cholesterol 25-OH Vitamin D Total PTH Intact Urine pH Urine WBC (Auto) Urine Creatinine Urine Total Protein Fluid Total Protein Vancomycin Trough Rheumatoid Factor Complement C4 Miscellaneous Test Crossmatch 01/03/11/17 03/11/17 11:37 18:13 23:55 WBC RBC Hgb Hct MCV MCH MCHC RDW Plt Count Lymph % (Auto) [place] % (Auto) Lymph # [place] # Baso # Seg Neutrophils % Seg Neuts % (Manual) Lymphocytes % (Manual) Monocytes % (Manual) Eosinophils % (Manual) Basophils % (Manual) Nucleated RBC % Seg Neutrophils # Seg Neutrophils # Man Lymphocytes # (Manual) Monocytes # (Manual) Eosinophils # (Manual) Basophils # (Manual) PT INR Fibrinogen dRVVT Confirm Interp Factor V Activity POC ABG pH POC ABG pCO2 POC ABG pO2 ABG pO2 ABG HCO3 ABG Base Excess ABG Hemoglobin Oxyhemoglobin Sodium Potassium Chloride Carbon Dioxide BUN Creatinine Glucose POC Glucose 113 H 126 H 134 H Lactic Acid Calcium Ionized Calcium Phosphorus Magnesium Direct Bilirubin AST ALT Alkaline Phosphatase Lactate Dehydrogenase Troponin T C-Reactive Protein Total Protein Albumin Prealbumin Triglycerides Cholesterol LDL Cholesterol Direct HDL Cholesterol 25-OH Vitamin D Total PTH Intact Urine pH Urine WBC (Auto) Urine Creatinine Urine Total Protein Fluid Total Protein Vancomycin Trough Rheumatoid Factor Complement C4 Miscellaneous Test Crossmatch 03/12/17 03/12/17 03/12/17 05:06 11:30 17:39 WBC RBC Hgb Hct MCV MCH MCHC RDW Plt Count Lymph % (Auto) [place] % (Auto) Lymph # [place] # Baso # Seg Neutrophils % Seg Neuts % (Manual) Lymphocytes % (Manual) Monocytes % (Manual) Eosinophils % (Manual) Basophils % (Manual) Nucleated RBC % Seg Neutrophils # Seg Neutrophils # Man Lymphocytes # (Manual) Monocytes # (Manual) Eosinophils # (Manual) Basophils # (Manual) PT INR Fibrinogen dRVVT Confirm Interp Factor V Activity POC ABG pH POC ABG pCO2 POC ABG pO2 ABG pO2 ABG HCO3 ABG Base Excess ABG Hemoglobin Oxyhemoglobin Sodium Potassium Chloride Carbon Dioxide BUN Creatinine Glucose POC Glucose 127 H 144 H 151 H Lactic Acid Calcium Ionized Calcium Phosphorus Magnesium Direct Bilirubin AST ALT Alkaline Phosphatase Lactate Dehydrogenase Troponin T C-Reactive Protein Total Protein Albumin Prealbumin Triglycerides Cholesterol LDL Cholesterol Direct HDL Cholesterol 25-OH Vitamin D Total PTH Intact Urine pH Urine WBC (Auto) Urine Creatinine Urine Total Protein Fluid Total Protein Vancomycin Trough Rheumatoid Factor Complement C4 Miscellaneous Test Crossmatch 03/13/17 03/13/17 03/13/17 05:01 05:39 11:29 WBC RBC Hgb Hct MCV MCH MCHC RDW Plt Count Lymph % (Auto) [place] % (Auto) Lymph # [place] # Baso # Seg Neutrophils % Seg Neuts % (Manual) Lymphocytes % (Manual) Monocytes % (Manual) Eosinophils % (Manual) Basophils % (Manual) Nucleated RBC % Seg Neutrophils # Seg Neutrophils # Man Lymphocytes # (Manual) Monocytes # (Manual) Eosinophils # (Manual) Basophils # (Manual) PT INR Fibrinogen dRVVT Confirm Interp Factor V Activity POC ABG pH POC ABG pCO2 POC ABG pO2 ABG pO2 ABG HCO3 ABG Base Excess ABG Hemoglobin Oxyhemoglobin Sodium 136 L Potassium 3.4 L Chloride 94.6 L Carbon Dioxide BUN 68 H Creatinine 2.9 H Glucose 105 H POC Glucose 123 H 128 H Lactic Acid Calcium Ionized Calcium Phosphorus Magnesium Direct Bilirubin AST ALT Alkaline Phosphatase Lactate Dehydrogenase Troponin T C-Reactive Protein Total Protein Albumin Prealbumin Triglycerides Cholesterol LDL Cholesterol Direct HDL Cholesterol 25-OH Vitamin D Total PTH Intact Urine pH Urine WBC (Auto) Urine Creatinine Urine Total Protein Fluid Total Protein Vancomycin Trough Rheumatoid Factor Complement C4 Miscellaneous Test Crossmatch 03/13/17 03/13/17 03/14/17 17:39 21:53 03:30 WBC RBC Hgb Hct MCV MCH MCHC RDW Plt Count Lymph % (Auto) [place] % (Auto) Lymph # [place] # Baso # Seg Neutrophils % Seg Neuts % (Manual) Lymphocytes % (Manual) Monocytes % (Manual) Eosinophils % (Manual) Basophils % (Manual) Nucleated RBC % Seg Neutrophils # Seg Neutrophils # Man Lymphocytes # (Manual) Monocytes # (Manual) Eosinophils # (Manual) Basophils # (Manual) PT INR Fibrinogen dRVVT Confirm Interp Factor V Activity POC ABG pH POC ABG pCO2 POC ABG pO2 ABG pO2 ABG HCO3 ABG Base Excess ABG Hemoglobin Oxyhemoglobin Sodium 133 L Potassium Chloride 95.7 L Carbon Dioxide 21 L BUN 37 H Creatinine 1.8 H Glucose 138 H POC Glucose 160 H 147 H Lactic Acid Calcium 8.1 L Ionized Calcium Phosphorus 2.10 L D Magnesium 1.60 L Direct Bilirubin AST ALT Alkaline Phosphatase Lactate Dehydrogenase Troponin T C-Reactive Protein Total Protein Albumin Prealbumin Triglycerides Cholesterol LDL Cholesterol Direct HDL Cholesterol 25-OH Vitamin D Total PTH Intact Urine pH Urine WBC (Auto) Urine Creatinine Urine Total Protein Fluid Total Protein Vancomycin Trough Rheumatoid Factor Complement C4 Miscellaneous Test Crossmatch 03/14/17 03/14/1703/14/18 05:19 11:08 12:51 WBC RBC Hgb Hct MCV MCH MCHC RDW Plt Count Lymph % (Auto) [place] % (Auto) Lymph # [place] # Baso # Seg Neutrophils % Seg Neuts % (Manual) Lymphocytes % (Manual) Monocytes % (Manual) Eosinophils % (Manual) Basophils % (Manual) Nucleated RBC % Seg Neutrophils # Seg Neutrophils # Man Lymphocytes # (Manual) Monocytes # (Manual) Eosinophils # (Manual) Basophils # (Manual) PT INR Fibrinogen dRVVT Confirm Interp Factor V Activity POC ABG pH POC ABG pCO2 POC ABG pO2 ABG pO2 ABG HCO3 ABG Base Excess ABG Hemoglobin Oxyhemoglobin Sodium Potassium Chloride Carbon Dioxide BUN Creatinine Glucose POC Glucose 159 H 144 H Lactic Acid Calcium Ionized Calcium Phosphorus Magnesium Direct Bilirubin AST ALT Alkaline Phosphatase Lactate Dehydrogenase Troponin T C-Reactive Protein 19.50 H Total Protein Albumin Prealbumin Triglycerides Cholesterol LDL Cholesterol Direct HDL Cholesterol 25-OH Vitamin D Total PTH Intact Urine pH Urine WBC (Auto) Urine Creatinine Urine Total Protein Fluid Total Protein Vancomycin Trough Rheumatoid Factor Complement C4 Miscellaneous Test Crossmatch 03/14/17 03/14/17 03/14/17 14:30 16:50 16:55 WBC 17.6 H RBC 2.18 L Hgb 6.0 L Hct 19.8 L* MCV MCH MCHC RDW 19.9 H Plt Count Lymph % (Auto) [place] % (Auto) Lymph # [place] # Baso # Seg Neutrophils % Seg Neuts % (Manual) Lymphocytes % (Manual) 13.0 L Monocytes % (Manual) 15.0 H Eosinophils % (Manual) Basophils % (Manual) Nucleated RBC % Seg Neutrophils # Seg Neutrophils # Man 12.3 H Lymphocytes # (Manual) Monocytes # (Manual) 2.6 H Eosinophils # (Manual) Basophils # (Manual) PT INR Fibrinogen dRVVT Confirm Interp Factor V Activity POC ABG pH POC ABG pCO2 POC ABG pO2 ABG pO2 ABG HCO3 ABG Base Excess ABG Hemoglobin Oxyhemoglobin Sodium Potassium Chloride Carbon Dioxide BUN Creatinine Glucose POC Glucose 156 H Lactic Acid Calcium Ionized Calcium Phosphorus Magnesium Direct Bilirubin AST ALT Alkaline Phosphatase Lactate Dehydrogenase Troponin T C-Reactive Protein Total Protein Albumin Prealbumin Triglycerides Cholesterol LDL Cholesterol Direct HDL Cholesterol 25-OH Vitamin D Total PTH Intact Urine pH Urine WBC (Auto) Urine Creatinine Urine Total Protein Fluid Total Protein Vancomycin Trough Rheumatoid Factor Complement C4 Miscellaneous Test Crossmatch See Detail 03/14/17 03/15/17 03/15/17 23:31 05:03 05:03 WBC 15.2 H RBC 2.42 L Hgb 6.9 L Hct 22.2 L MCV MCH MCHC RDW 18.4 H Plt Count Lymph % (Auto) [place] % (Auto) Lymph # [place] # Baso # Seg Neutrophils % Seg Neuts % (Manual) Lymphocytes % (Manual) Monocytes % (Manual) Eosinophils % (Manual) Basophils % (Manual) Nucleated RBC % Seg Neutrophils # Seg Neutrophils # Man Lymphocytes # (Manual) Monocytes # (Manual) Eosinophils # (Manual) Basophils # (Manual) PT INR Fibrinogen dRVVT Confirm Interp Factor V Activity POC ABG pH POC ABG pCO2 POC ABG pO2 ABG pO2 ABG HCO3 ABG Base Excess ABG Hemoglobin Oxyhemoglobin Sodium Potassium 3.5 L Chloride Carbon Dioxide BUN 54 H Creatinine 2.6 H Glucose 127 H POC Glucose 176 H Lactic Acid Calcium Ionized Calcium Phosphorus Magnesium Direct Bilirubin AST ALT Alkaline Phosphatase Lactate Dehydrogenase Troponin T C-Reactive Protein Total Protein Albumin Prealbumin Triglycerides Cholesterol LDL Cholesterol Direct HDL Cholesterol 25-OH Vitamin D Total PTH Intact Urine pH Urine WBC (Auto) Urine Creatinine Urine Total Protein Fluid Total Protein Vancomycin Trough Rheumatoid Factor Complement C4 Miscellaneous Test Crossmatch 03/15/17 03/15/17 03/15/17 05:04 12:52 17:46 WBC RBC Hgb Hct MCV MCH MCHC RDW Plt Count Lymph % (Auto) [place] % (Auto) Lymph # [place] # Baso # Seg Neutrophils % Seg Neuts % (Manual) Lymphocytes % (Manual) Monocytes % (Manual) Eosinophils % (Manual) Basophils % (Manual) Nucleated RBC % Seg Neutrophils # Seg Neutrophils # Man Lymphocytes # (Manual) Monocytes # (Manual) Eosinophils # (Manual) Basophils # (Manual) PT INR Fibrinogen dRVVT Confirm Interp Factor V Activity POC ABG pH POC ABG pCO2 POC ABG pO2 ABG pO2 ABG HCO3 ABG Base Excess ABG Hemoglobin Oxyhemoglobin Sodium Potassium Chloride Carbon Dioxide BUN Creatinine Glucose POC Glucose 106 H 141 H 170 H Lactic Acid Calcium Ionized Calcium Phosphorus Magnesium Direct Bilirubin AST ALT Alkaline Phosphatase Lactate Dehydrogenase Troponin T C-Reactive Protein Total Protein Albumin Prealbumin Triglycerides Cholesterol LDL Cholesterol Direct HDL Cholesterol 25-OH Vitamin D Total PTH Intact Urine pH Urine WBC (Auto) Urine Creatinine Urine Total Protein Fluid Total Protein Vancomycin Trough Rheumatoid Factor Complement C4 Miscellaneous Test Crossmatch 03/16/17 03/16/17 03/16/17 00:16 03:35 05:15 WBC RBC Hgb Hct MCV MCH MCHC RDW Plt Count Lymph % (Auto) [place] % (Auto) Lymph # [place] # Baso # Seg Neutrophils % Seg Neuts % (Manual) Lymphocytes % (Manual) Monocytes % (Manual) Eosinophils % (Manual) Basophils % (Manual) Nucleated RBC % Seg Neutrophils # Seg Neutrophils # Man Lymphocytes # (Manual) Monocytes # (Manual) Eosinophils # (Manual) Basophils # (Manual) PT INR Fibrinogen dRVVT Confirm Interp Factor V Activity POC ABG pH POC ABG pCO2 POC ABG pO2 ABG pO2 ABG HCO3 ABG Base Excess ABG Hemoglobin Oxyhemoglobin Sodium Potassium 3.5 L Chloride Carbon Dioxide BUN 26 H Creatinine 1.3 H Glucose 129 H POC Glucose 120 H 140 H Lactic Acid Calcium 7.9 L Ionized Calcium Phosphorus 2.20 L D Magnesium Direct Bilirubin AST ALT Alkaline Phosphatase Lactate Dehydrogenase Troponin T C-Reactive Protein Total Protein Albumin Prealbumin Triglycerides Cholesterol LDL Cholesterol Direct HDL Cholesterol 25-OH Vitamin D Total PTH Intact Urine pH Urine WBC (Auto) Urine Creatinine Urine Total Protein Fluid Total Protein Vancomycin Trough Rheumatoid Factor Complement C4 Miscellaneous Test Crossmatch 03/16/17 03/16/17 03/17/17 12:26 18:16 00:00 WBC RBC Hgb Hct MCV MCH MCHC RDW Plt Count Lymph % (Auto) [place] % (Auto) Lymph # [place] # Baso # Seg Neutrophils % Seg Neuts % (Manual) Lymphocytes % (Manual) Monocytes % (Manual) Eosinophils % (Manual) Basophils % (Manual) Nucleated RBC % Seg Neutrophils # Seg Neutrophils # Man Lymphocytes # (Manual) Monocytes # (Manual) Eosinophils # (Manual) Basophils # (Manual) PT INR Fibrinogen dRVVT Confirm Interp Factor V Activity POC ABG pH POC ABG pCO2 POC ABG pO2 ABG pO2 ABG HCO3 ABG Base Excess ABG Hemoglobin Oxyhemoglobin Sodium Potassium Chloride Carbon Dioxide BUN Creatinine Glucose POC Glucose 133 H 107 H 124 H Lactic Acid Calcium Ionized Calcium Phosphorus Magnesium Direct Bilirubin AST ALT Alkaline Phosphatase Lactate Dehydrogenase Troponin T C-Reactive Protein Total Protein Albumin Prealbumin Triglycerides Cholesterol LDL Cholesterol Direct HDL Cholesterol 25-OH Vitamin D Total PTH Intact Urine pH Urine WBC (Auto) Urine Creatinine Urine Total Protein Fluid Total Protein Vancomycin Trough Rheumatoid Factor Complement C4 Miscellaneous Test Crossmatch 03/17/17 03/17/17 03/17/17 04:00 05:57 12:00 WBC RBC Hgb Hct MCV MCH MCHC RDW Plt Count Lymph % (Auto) [place] % (Auto) Lymph # [place] # Baso # Seg Neutrophils % Seg Neuts % (Manual) Lymphocytes % (Manual) Monocytes % (Manual) Eosinophils % (Manual) Basophils % (Manual) Nucleated RBC % Seg Neutrophils # Seg Neutrophils # Man Lymphocytes # (Manual) Monocytes # (Manual) Eosinophils # (Manual) Basophils # (Manual) PT INR Fibrinogen dRVVT Confirm Interp Factor V Activity POC ABG pH POC ABG pCO2 POC ABG pO2 ABG pO2 ABG HCO3 ABG Base Excess ABG Hemoglobin Oxyhemoglobin Sodium 134 L Potassium Chloride 95.1 L Carbon Dioxide BUN 37 H Creatinine 1.8 H Glucose 115 H POC Glucose 141 H 129 H Lactic Acid Calcium 8.3 L Ionized Calcium Phosphorus 5.50 H D Magnesium Direct Bilirubin AST ALT Alkaline Phosphatase Lactate Dehydrogenase Troponin T C-Reactive Protein Total Protein Albumin Prealbumin Triglycerides Cholesterol LDL Cholesterol Direct HDL Cholesterol 25-OH Vitamin D Total PTH Intact Urine pH Urine WBC (Auto) Urine Creatinine Urine Total Protein Fluid Total Protein Vancomycin Trough Rheumatoid Factor Complement C4 Miscellaneous Test Crossmatch 03/17/17 03/18/17 03/18/17 17:23 00:04 04:00 WBC RBC Hgb Hct MCV MCH MCHC RDW Plt Count Lymph % (Auto) [place] % (Auto) Lymph # [place] # Baso # Seg Neutrophils % Seg Neuts % (Manual) Lymphocytes % (Manual) Monocytes % (Manual) Eosinophils % (Manual) Basophils % (Manual) Nucleated RBC % Seg Neutrophils # Seg Neutrophils # Man Lymphocytes # (Manual) Monocytes # (Manual) Eosinophils # (Manual) Basophils # (Manual) PT INR Fibrinogen dRVVT Confirm Interp Factor V Activity POC ABG pH POC ABG pCO2 POC ABG pO2 ABG pO2 ABG HCO3 ABG Base Excess ABG Hemoglobin Oxyhemoglobin Sodium Potassium Chloride Carbon Dioxide BUN 23 H Creatinine 1.3 H Glucose 122 H POC Glucose 155 H 126 H Lactic Acid Calcium 8.3 L Ionized Calcium Phosphorus Magnesium Direct Bilirubin AST ALT Alkaline Phosphatase Lactate Dehydrogenase Troponin T C-Reactive Protein Total Protein Albumin Prealbumin Triglycerides Cholesterol LDL Cholesterol Direct HDL Cholesterol 25-OH Vitamin D Total PTH Intact Urine pH Urine WBC (Auto) Urine Creatinine Urine Total Protein Fluid Total Protein Vancomycin Trough Rheumatoid Factor Complement C4 Miscellaneous Test Crossmatch 03/18/17 03/18/17 03/18/17 05:47 11:15 18:07 WBC RBC Hgb Hct MCV MCH MCHC RDW Plt Count Lymph % (Auto) [place] % (Auto) Lymph # [place] # Baso # Seg Neutrophils % Seg Neuts % (Manual) Lymphocytes % (Manual) Monocytes % (Manual) Eosinophils % (Manual) Basophils % (Manual) Nucleated RBC % Seg Neutrophils # Seg Neutrophils # Man Lymphocytes # (Manual) Monocytes # (Manual) Eosinophils # (Manual) Basophils # (Manual) PT INR Fibrinogen dRVVT Confirm Interp Factor V Activity POC ABG pH POC ABG pCO2 POC ABG pO2 ABG pO2 ABG HCO3 ABG Base Excess ABG Hemoglobin Oxyhemoglobin Sodium Potassium Chloride Carbon Dioxide BUN Creatinine Glucose POC Glucose 139 H 138 H 134 H Lactic Acid Calcium Ionized Calcium Phosphorus Magnesium Direct Bilirubin AST ALT Alkaline Phosphatase Lactate Dehydrogenase Troponin T C-Reactive Protein Total Protein Albumin Prealbumin Triglycerides Cholesterol LDL Cholesterol Direct HDL Cholesterol 25-OH Vitamin D Total PTH Intact Urine pH Urine WBC (Auto) Urine Creatinine Urine Total Protein Fluid Total Protein Vancomycin Trough Rheumatoid Factor Complement C4 Miscellaneous Test Crossmatch 03/19/17 03/19/17 03/19/17 00:34 06:11 Unknown WBC RBC Hgb Hct MCV MCH MCHC RDW Plt Count Lymph % (Auto) [place] % (Auto) Lymph # [place] # Baso # Seg Neutrophils % Seg Neuts % (Manual) Lymphocytes % (Manual) Monocytes % (Manual) Eosinophils % (Manual) Basophils % (Manual) Nucleated RBC % Seg Neutrophils # Seg Neutrophils # Man Lymphocytes # (Manual) Monocytes # (Manual) Eosinophils # (Manual) Basophils # (Manual) PT INR Fibrinogen dRVVT Confirm Interp Factor V Activity POC ABG pH POC ABG pCO2 POC ABG pO2 ABG pO2 ABG HCO3 ABG Base Excess ABG Hemoglobin Oxyhemoglobin Sodium Potassium Chloride 96.8 L Carbon Dioxide BUN 34 H Creatinine 1.9 H Glucose 138 H POC Glucose 139 H 146 H Lactic Acid Calcium Ionized Calcium Phosphorus 5.20 H D Magnesium Direct Bilirubin AST ALT Alkaline Phosphatase Lactate Dehydrogenase Troponin T C-Reactive Protein Total Protein Albumin Prealbumin Triglycerides Cholesterol LDL Cholesterol Direct HDL Cholesterol 25-OH Vitamin D Total PTH Intact Urine pH Urine WBC (Auto) Urine Creatinine Urine Total Protein Fluid Total Protein Vancomycin Trough Rheumatoid Factor Complement C4 Miscellaneous Test Crossmatch Allied health notes reviewed: nursing
[2017-03-19] MEDS ORDERED: TPN ADULT IV SCH (20:00)
[2017-03-19] MEDS: TRANSDERM-SCOP TD SCH (23:01)
[2017-03-19] MEDS: CORDARONE 900 MG in D5W 482 ML IV SCH (23:02)
[2017-03-20] MEDS: LOPRESSOR IV SCH ×4 (01:54→20:30)
[2017-03-20] MEDS: HumuLIN R SUB-Q SCH ×3 (05:35→18:08)
[2017-03-20] MEDS: FLAGYL 500 MG/100 ML 500 MG/100 ML BAG IV SCH ×3 (05:41→23:23)
[2017-03-20 05:46] LABS: Albumin 0.9 g/dL (3.9-5); Calcium 8.7 mg/dL (8.4-10.2)
--- NOTE | 2017-03-20 08:55 | Progress Note ---
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 UF as tolerated. Patient's serum creatinine is noted to be low - due to wasting of muscle mass. Needs to be maintained on dialysis at this time. * Abx per ID * Adjust Ca bath with dialysis * Rate control per cardiology * Transfuse pRBC per primary team. * Epogen TIW prn * Vent management per pulm/CCM * Pressors prn for MAP>65 * Dose medications for renal function Subjective Date of service: 03/20/17 Principal diagnosis: Acute resp failure on MVS; S/P Acute CVA; Acute Encephalopathy; JUANITA Interval history: No acute events overnight. Objective - Vital Signs Vital signs: Vital Signs - 12hr 03/19/17 03/19/17 03/19/17 21:00 22:00 22:10 Temperature Pulse Rate 87 86 Respiratory 13 15 Rate Blood Pressure 103/75 110/73 O2 Sat by Pulse 100 100 Oximetry O2 Sat by Pulse 97 Oximetry [ Assessment] 03/19/17 03/19/17 03/20/17 23:00 23:30 00:00 Temperature 94.7 F L Pulse Rate 85 87 Respiratory 14 15 Rate Blood Pressure 107/73 123/82 O2 Sat by Pulse 98 100 Oximetry O2 Sat by Pulse Oximetry [ Assessment] 03/20/17 03/20/17 03/20/17 00:57 01:00 01:52 Temperature 95.7 F L Pulse Rate 89 Respiratory 17 Rate Blood Pressure 86/52 89/52 O2 Sat by Pulse 100 Oximetry O2 Sat by Pulse Oximetry [ Assessment] 03/20/17 03/20/17 03/20/17 01:54 02:00 02:01 Temperature 97.2 F L Pulse Rate 102 H Respiratory 19 Rate Blood Pressure 89/52 103/63 O2 Sat by Pulse 100 Oximetry O2 Sat by Pulse Oximetry [ Assessment] 03/20/17 03/20/17 03/20/17 02:46 03:00 04:00 Temperature Pulse Rate 98 H 97 H 99 H Respiratory 17 15 Rate Blood Pressure 93/52 88/49 O2 Sat by Pulse 99 Oximetry O2 Sat by Pulse Oximetry [ Assessment] 03/20/17 03/20/17 03/20/17 04:13 05:00 06:00 Temperature 97.8 F Pulse Rate 103 H 106 H 106 H Respiratory 17 15 Rate Blood Pressure 88/49 94/47 87/47 O2 Sat by Pulse 100 99 95 Oximetry O2 Sat by Pulse Oximetry [ Assessment] 03/20/17 03/20/17 07:00 08:00 Temperature 98.5 F Pulse Rate 106 H 106 H Respiratory 18 18 Rate Blood Pressure 85/48 85/46 O2 Sat by Pulse 98 Oximetry O2 Sat by Pulse Oximetry [ Assessment] - General Appearance General appearance: well-developed, well-nourished EENT: ATNC Respiratory: Present: Clear to Ascultation Cardiology: regular, S1S2 Gastrointestinal: normal, no tenderness, no distended Integumentary: no rash Neurologic: other (patient does not respond to verbal or tactile stimuli) - Lab 03/20/17 13:55 03/20/17 Unknown Most recent lab results ABG pH 7.450 pH Units (7.350-7.450) 12/05/16 Unknown ABG pCO2 29.6 mm Hg 12/05/16 Unknown ABG pO2 75.2 mm Hg (80.0-90.0) L 12/05/16 Unknown ABG HCO3 20.1 mmol/L (20.0-26.0) 12/05/16 Unknown ABG O2 Saturation 96.8 % (95.0-99.0) 12/05/16 Unknown Calcium 8.7 mg/dL (8.4-10.2) 03/20/17 Unknown Phosphorus 5.30 mg/dL (2.5-4.5) H 03/20/17 Unknown Magnesium 1.90 mg/dL (1.7-2.3) 03/20/17 Unknown Urine Creatinine 19.7 mg/dL (0.1-20.0) 11/12/16 10:18 Urine Sodium 36 mEq/L 09/16/16 19:19 Urine Total Protein 16 mg/dL (5-11.8) H 09/16/16 19:19
[2017-03-20] MEDS: HEPARIN SUB-Q SCH ×2 (09:15→23:23)
[2017-03-20] MEDS: MAXIPIME 1 GM in NACL 0.9% 20 ML IV SCH (09:15)
[2017-03-20] MEDS: PEPCID IV SCH (09:15)
[2017-03-20] MEDS: LEVOPHED DRIP 4 MG/NS 250 ML 4 MG/250 ML BAG IV SCH (09:54)
[2017-03-20] MEDS: DUONEB *Not for PRN Use IH SCH ×3 (09:57→19:56)
[2017-03-20] MEDS: DURAGESIC TD SCH (12:54)
[2017-03-20 14:40] LABS: Basophils # (Auto) 0.1 K/mm3 (0.0-0.1); Basophils % (Auto) 0.6 % (0.0-1.8); Eosinophils # (Auto) 0.1 K/mm3 (0.0-0.4); Eosinophils % (Auto) 0.4 % (0.0-4.3); Hematocrit 21.2 % (30.3-42.9); Hemoglobin 6.6 gm/dl (10.1-14.3); Lymphocytes # (Auto) 2.7 K/mm3 (1.2-5.4); Lymphocytes % (Auto) 19.8 % (13.4-35.0); Mean Corpuscular HGB Conc 31 % (30-34); Mean Corpuscular Hemoglobin 30 pg (28-32); Mean Corpuscular Volume 96 fl (79-97); Monocytes % (Auto) 7.2 % (0.0-7.3); Platelet Count 164 K/mm3 (140-440); Red Blood Count 2.21 M/mm3 (3.65-5.03); Red Cell Distribution Width 19.7 % (13.2-15.2)
--- NOTE | 2017-03-20 15:07 | Progress Note ---
Assessment and Plan Assessment: 1) Recurrent SIRS: new septic shock - resolved - Likely due to intra-abdominal abscess 2) History of Peritonitis: from gastric perforation from dislodged PEG with significant ascites -S/P exlap, repair of gastric perforation with wedge gastrectomy, abdominal washout, drain placement on 10/05 3) History of Candidemia: -Blood cultures positive for Silvia albicans on 09/23 and 09/25 -Blood cultures negative on 09/30 -PICC line changed on 10/03 -Source ? gastric perf (PEG placed on 09/20) +/- TPN +/- central lines -TTE 10/07 no vegetations -PICC exchanged on 10/03 -fully treated with micafungin for 14 days last day 10/13 4) History CA-UTI s/p gutierrez exchanged 5) Diarrhea - ? etiology ? antibiotic-induced, not better. 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 from GI bleed 13) Recent abdominal wall abscess at surgical site-treated 14 ) Recent Enterococcal bacteremia from PICC line infection. 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 -S/P debridement at bedside - new wound cx 01/24 +Proteus and MDR Pseudomonas (resistant to meropenem and cefepime/sensitive to ceftazidime) and wound VAC placement -CRP=24 --> 8 16) Presumed VAP: sputum + MDR Pseudomonas / Proteus / pleural effusion s/p thoracentesis 17) Resp failure - better 18) Perforated bowel: Ct showed presumed perf bowel with free air -repeat CT showed large 21x4.2 cm collection -s/p CT guided drainage -30 mL's of dark purulent fluid was aspirated 19) Enterococcal septicemia from IV cath. TTE no vegetations 18) PIV site infection s/p line removed on 03/09 tip + Enterococcus Plan: -f/u drainage cultures -continue cefepime and flagyl -day 9 poor prognosis Thank you for your consultation, will follow up with you. Pauline Carias MD Infectious Diseases Specialist [facility] ([facility]) M [phone] O [phone] Subjective Date of service: 03/20/17 Principal diagnosis: Acute resp failure on MVS; S/P Acute CVA; Acute Encephalopathy; JUANITA Interval history: Interval history: remains on the vent, tachy on monitor, on amiodarone gtt, fever resolved, off levophed Microbiology: Blood cultures: 09/13 neg 09/23 Silvia albicans 09/25 Silvia 09/29 neg 10/07 neg 11/05 neg 11/07 ngtd 11/22 E faecalis 1 of 4 bottles 11/25 neg 12/27 neg 01/09 ngtd 02/14 ngtd 02/27 Enterococcus durans 1 of 4 bottles 03/06 ngtd PIV tip 03/09 Enterococcus, LEGAL DOCUMENT ASSISTANT, Proteus Urine cultures: 09/10 neg 09/13 neg 09/23 10-100K mixed species 10/07 neg 11/05 VRE 11/07 mixed bacteria Respiratory cultures: 09/07 neg 09/13 neg 09/23 neg 11/07 MDR Pseudomonas 11/21 tracheal + VRE 01/09 Pseudomonas x 3 and Proteues Pleural effusion: ngtd Wound cultures: 10/17 abd wall wound purulence + Pseudomonas MDR 01/24 GNRs 03/15 drainage - Proteus sen to cefepime, GNR x 1 and Enterococcus Stool cultures: cath tip 11/07 + LEGAL DOCUMENT ASSISTANT Current Antimicrobials: cefepime 03/09 flagyl 03/09 vanco Previous Antimicrobials: Zosyn 10/07 Vancomycin PO 10/01 Metronidazole 09/25 Micafungin 09/27-10/13 Meropenem 10/10 Vanco 10/17 zosyn 10/21 Cefepime 11/10 vancomyin 11/07 fluconazole 10/19 cefepime 10/29levaquin 11/05 vanco 11/23 meropenem 01/08 ceftaz 01/30 Objective - Exam Narrative Exam: General appearance: alert non communicative, on the vent via trach in mild resp distress, no following commands Eyes: anicteric sclera, moist conjunctivae; PERRLA HENT: Atraumatic; oropharynx limited; Normal external ears. +NGT with greenish secretion Neck: +trach in place; supple, no thyromegaly or lymphadenopathy Lungs: brit coarse BS CV: tachy Abdomen: Soft, tender, +old PEG site no drainage. +iliostomy. Right sided Surgical site x 2 with ostomy bags. +drain with copious purulence Extremities: +peripheral edema Skin: sacral area wounds - per wound care STAGE 4 PRESSURE INJURY TO SACRAL MEASURES 7.5X6X2.5, WITH UNDERMINING FROM @9-1 OCLOCK-2.8CM-ULCER CLEANED WITH WOUND EMAIL DEVELOPER-ULCER NEW - Sacrum wound measuring 9x11cm. Necrotic tissue noted on the wound edges and in the wound bed Now with a wound VAC Psych: somnolent . Neuro: alert non verbal on the vent. Lines: PICC / gutierrez - Constitutional Vitals: Vital Signs Temp Pulse Resp BP Pulse Ox 99.0 F 109 H 24 105/56 92 03/20/17 12:00 03/20/17 14:37 03/20/17 14:37 03/20/17 14:00 03/20/17 14:00 Temperature -Last 24 Hours Temperature 99.0 F Temperature 98.5 F Temperature 97.8 F Temperature 97.2 F Temperature 95.7 F Temperature 94.7 F Temperature 94.5 F Temperature 97.4 F - Labs CBC & Chem 7: 03/20/17 13:55 03/20/17 Unknown Labs: Abnormal lab results 03/19/17 03/19/17 03/19/17 Range/Units 11:15 17:28 23:23 WBC (4.5-11.0) K/mm3 RBC (3.65-5.03) M/mm3 Hgb (10.1-14.3) gm/dl Hct (30.3-42.9) % RDW (13.2-15.2) % [place] # (0.0-0.8) K/mm3 Seg Neutrophils % (40.0-70.0) % Seg Neutrophils # (1.8-7.7) K/mm3 Chloride (98-107) mmol/L BUN (7-17) mg/dL Creatinine (0.7-1.2) mg/dL POC Glucose 129 H 142 H 144 H (70-105) Phosphorus (2.5-4.5) mg/dL ALT (7-56) units/L Albumin (3.9-5) g/dL 03/20/17 03/20/17 Range/Units 13:55 Unknown WBC 13.8 H (4.5-11.0) K/mm3 RBC 2.21 L (3.65-5.03) M/mm3 Hgb 6.6 L (10.1-14.3) gm/dl Hct 21.2 L (30.3-42.9) % RDW 19.7 H (13.2-15.2) % [place] # 1.0 H (0.0-0.8) K/mm3 Seg Neutrophils % 72.0 H (40.0-70.0) % Seg Neutrophils # 9.9 H (1.8-7.7) K/mm3 Chloride 97.7 L (98-107) mmol/L BUN 43 H (7-17) mg/dL Creatinine 2.2 H (0.7-1.2) mg/dL POC Glucose (70-105) Phosphorus 5.30 H (2.5-4.5) mg/dL ALT 6 L (7-56) units/L Albumin 0.9 L (3.9-5) g/dL
[2017-03-20] MEDS ORDERED: NACL 0.9% 500 ML 500 ML IV ONE (16:00)
[2017-03-20] MEDS ORDERED: NACL 0.9% 500 ML 500 ML IV SCH (16:00)
--- NOTE | 2017-03-20 17:28 | Progress Note ---
Assessment and Plan Assessment and plan: 47-year-old female patient multiple medical problems, large CVA , hypoxic encephalopathy , status post cardiac arrest , vegetative state , atrial fibrillation , sepsis , aspiration pneumonia , end-stage renal disease on hemodialysis , multiple sacral and lower extremity decubiti requiring debridement , severe protein calorie malnutrition peritonitis / perforation, multiple surgeries, DO NOT RESUSCITATE status,prolonged hospital stay and poor prognosis, --Large CVA; with midline shift, supportive care --Persistent vegetative state/DO NOT RESUSCITATE status, family not ready for hospice --Status post cardiac arrest/anoxic encephalopathy/status post tracheostomy -- sepsis,recurrent enterococcal bacteremia ; continue cefepime and metronidazole per ID --Perforated bowel/large fluid collection, s/p drain placement; management per surgery --Acute respiratory failure status post tracheostomy vent dependent --Hypotension; monitor Levophed as needed --A. fib with rapid ventricular rate; continue amiodarone --Peritonitis ; due to gastric perforation, status post exploratory laparotomy, but gastrostomy, abdominal washout and drain placement, on TPN --End-stage renal disease on hemodialysis --Aspiration pneumonia; completed multiple courses of antibiotics, ID following --Severe protein calorie malnutrition; nutrition consult and supportive care --Multiple sacral and lower extremity decubitus ulcers; status post debridement , continue wound care --DO NOT RESUSCITATE status Poor prognosis, had many family meetings in the past, family aware of patient's poor prognosis Critical care time 31 minutes - The high probability of a clinically significant, sudden or life threatening deterioration of the [neurologic, CV] system(s) required my full and direct attention, intervention and personal management. The aggregate critical care time was [31] minutes. This time is in addition to time spent performing reported procedures but includes the following: [x] Data Review and interpretation [x] Patient assessment and monitoring of vital signs [x] Documentation [x] Medication orders and management History Interval history: Patient seen and examined Medical records reviewed No overnight events reported by the nursing staff Status post trach on vent Vital signs reviewed Hospitalist Physical - Constitutional Vitals: Temp Pulse Resp BP Pulse Ox 99.4 F 109 H 16 108/56 94 03/20/17 16:00 03/20/17 16:00 03/20/17 16:00 03/20/17 16:00 03/20/17 16:00 General appearance: Present: no acute distress, cachectic, other (spontaneous opening of eyes, unresponsive) - EENT Eyes: Present: PERRL, EOM intact - Neck Neck: Present: supple - Respiratory Respiratory effort: normal Respiratory: bilateral: diminished, rhonchi, negative: rales, wheezing - Cardiovascular Rhythm: regular Heart Sounds: Present: S1 & S2 - Extremities Extremities: no ischemia Extremity abnormal: edema - Abdominal General gastrointestinal: soft, non-tender, non-distended, normal bowel sounds, other (drain in place) - Integumentary Integumentary: Present: clear, warm - Psychiatric Psychiatric: other (noncommunicative) - Neurologic Neurologic: other (noncommunicative) Results - Labs CBC & Chem 7: 03/20/17 13:55 03/20/17 Unknown Labs: Laboratory Last Values WBC 13.8 K/mm3 (4.5-11.0) H 03/20/17 13:55 RBC 2.21 M/mm3 (3.65-5.03) L 03/20/17 13:55 Hgb 6.6 gm/dl (10.1-14.3) L 03/20/17 13:55 Hct 21.2 % (30.3-42.9) L 03/20/17 13:55 MCV 96 fl (79-97) 03/20/17 13:55 MCH 30 pg (28-32) 03/20/17 13:55 MCHC 31 % (30-34) 03/20/17 13:55 RDW 19.7 % (13.2-15.2) H 03/20/17 13:55 Plt Count 164 K/mm3 (140-440) 03/20/17 13:55 Lymph % (Auto) 19.8 % (13.4-35.0) 03/20/17 13:55 Hooker % (Auto) 7.2 % (0.0-7.3) 03/20/17 13:55 Eos % (Auto) 0.4 % (0.0-4.3) 03/20/17 13:55 Baso % (Auto) 0.6 % (0.0-1.8) 03/20/17 13:55 Lymph # 2.7 K/mm3 (1.2-5.4) 03/20/17 13:55 Hooker # 1.0 K/mm3 (0.0-0.8) H 03/20/17 13:55 Eos # 0.1 K/mm3 (0.0-0.4) 03/20/17 13:55 Baso # 0.1 K/mm3 (0.0-0.1) 03/20/17 13:55 Add Manual Diff Complete 03/14/17 14:30 Total Counted 100 03/14/17 14:30 Seg Neutrophils % 72.0 % (40.0-70.0) H 03/20/17 13:55 Seg Neuts % (Manual) 70.0 % (40.0-70.0) 03/14/17 14:30 Band Neutrophils % 0 % 03/14/17 14:30 Lymphocytes % (Manual) 13.0 % (13.4-35.0) L 03/14/17 14:30 Reactive Lymphs % (Man) 1.0 % 03/14/17 14:30 Monocytes % (Manual) 15.0 % (0.0-7.3) H 03/14/17 14:30 Eosinophils % (Manual) 1.0 % (0.0-4.3) 03/14/17 14:30 Basophils % (Manual) 0 % (0.0-1.8) 03/14/17 14:30 Metamyelocytes % 0 % 03/14/17 14:30 Myelocytes % 0 % 03/14/17 14:30 Promyelocytes % 0 % 03/14/17 14:30 Blast Cells % 0 % 03/14/17 14:30 Nucleated RBC % Not Reportable 03/14/17 14:30 Seg Neutrophils # 9.9 K/mm3 (1.8-7.7) H 03/20/17 13:55 Seg Neutrophils # Man 12.3 K/mm3 (1.8-7.7) H 03/14/17 14:30 Band Neutrophils # 0.0 K/mm3 03/14/17 14:30 Lymphocytes # (Manual) 2.3 K/mm3 (1.2-5.4) 03/14/17 14:30 Abs React Lymphs (Man) 0.2 K/mm3 03/14/17 14:30 Monocytes # (Manual) 2.6 K/mm3 (0.0-0.8) H 03/14/17 14:30 Eosinophils # (Manual) 0.2 K/mm3 (0.0-0.4) 03/14/17 14:30 Basophils # (Manual) 0.0 K/mm3 (0.0-0.1) 03/14/17 14:30 Metamyelocytes # 0.0 K/mm3 03/14/17 14:30 Myelocytes # 0.0 K/mm3 03/14/17 14:30 Promyelocytes # 0.0 K/mm3 03/14/17 14:30 Blast Cells # 0.0 K/mm3 03/14/17 14:30 Pathologist Review 09/13/16 04:00 WBC Morphology Not Reportable 03/14/17 14:30 Hypersegmented Neuts Not Reportable 03/14/17 14:30 Hyposegmented Neuts Not Reportable 03/14/17 14:30 Hypogranular Neuts Not Reportable 03/14/17 14:30 Smudge Cells Not Reportable 03/14/17 14:30 Toxic Granulation Not Reportable 03/14/17 14:30 Toxic Vacuolation Not Reportable 03/14/17 14:30 Dohle Bodies Not Reportable 03/14/17 14:30 Pelger-Huet Anomaly Not Reportable 03/14/17 14:30 Jasmina Rods Not Reportable 03/14/17 14:30 Platelet Estimate Consistent w auto 03/14/17 14:30 Clumped Platelets Not Reportable 03/14/17 14:30 Plt Clumps, EDTA Not Reportable 03/14/17 14:30 Large Platelets Not Reportable 03/14/17 14:30 Giant Platelets Not Reportable 03/14/17 14:30 Platelet Satelliting Not Reportable 03/14/17 14:30 Plt Morphology Comment Not Reportable 03/14/17 14:30 RBC Morphology Not Reportable 03/14/17 14:30 Dimorphic RBCs Not Reportable 03/14/17 14:30 Polychromasia Not Reportable 03/14/17 14:30 Hypochromasia 2+ 03/14/17 14:30 Poikilocytosis Not Reportable 03/14/17 14:30 Anisocytosis 1+ 03/14/17 14:30 Microcytosis Not Reportable 03/14/17 14:30 Macrocytosis Not Reportable 03/14/17 14:30 Spherocytes Not Reportable 03/14/17 14:30 Pappenheimer Bodies Not Reportable 03/14/17 14:30 Sickle Cells Not Reportable 03/14/17 14:30 Target Cells Not Reportable 03/14/17 14:30 Tear Drop Cells Not Reportable 03/14/17 14:30 Ovalocytes Not Reportable 03/14/17 14:30 Stomatocytes 2+ 03/14/17 14:30 Helmet Cells Not Reportable 03/14/17 14:30 Monet-Humble Bodies Not Reportable 03/14/17 14:30 Durand Rings Not Reportable 03/14/17 14:30 Wilmot Cells Not Reportable 03/14/17 14:30 Bite Cells Not Reportable 03/14/17 14:30 Crenated Cell Not Reportable 03/14/17 14:30 Elliptocytes Not Reportable 03/14/17 14:30 Acanthocytes (Spur) Not Reportable 03/14/17 14:30 Rouleaux Not Reportable 03/14/17 14:30 Hemoglobin C Crystals Not Reportable 03/14/17 14:30 Schistocytes Not Reportable 03/14/17 14:30 Malaria parasites Not Reportable 03/14/17 14:30 ESR > 140.0 mm/Hr (0-20) 09/08/16 11:48 Jun Bodies Not Reportable 03/14/17 14:30 Hem Pathologist Commnt No 03/14/17 14:30 PT 15.4 Sec. (12.2-14.9) H 01/13/17 15:50 INR 1.16 (0.87-1.13) H 01/13/17 15:50 APTT 33.0 Sec. (24.2-36.6) 10/09/16 03:45 Thrombin Time 16.8 Sec. (15.1-19.6) 09/03/16 00:10 Fibrinogen 750 mg/dl (211-480) H 09/08/16 11:48 Lupus Anticoagulant see below 09/12/16 09:59 LA PTT Baseline See scanned report 09/12/16 09:59 dRVVT Confirm Interp Positive (Negative) H 09/12/16 09:59 dRVVT Screen 50:50 See scanned report 09/12/16 09:59 dRVVT Mix Interpret See scanned report 09/12/16 09:59 Protein C Antigen 122 % (70-140) 09/08/16 15:35 Free Protein S 97 % normal (50-147) 09/08/16 15:35 Total Protein S 109 % (70-140) 09/08/16 15:35 Antithrombin III Ag 100 % (80-120) 09/08/16 15:35 Heparin Anti-Xa, Unfract Negative (Negative) 09/29/16 13:35 Factor V Activity 182 % (65-150) H 09/08/16 15:35 POC ABG pH 7.518 (7.35-7.45) H 03/03/17 20:17 ABG pH 7.450 pH Units (7.350-7.450) 12/05/16 Unknown POC ABG pCO2 28.8 (35-45) L 03/03/17 20: ABG pCO2 29.6 mm Hg 12/05/16 Unknown POC ABG pO2 61 (80-105) L 03/03/17 20: ABG pO2 75.2 mm Hg (80.0-90.0) L 12/05/16 Unknown POC ABG HCO3 23.4 03/03/17 20: ABG HCO3 20.1 mmol/L (20.0-26.0) 12/05/16 Unknown POC ABG Total CO2 24 03/03/17 20: POC ABG O2 Sat 94 03/03/17 20: ABG O2 Saturation 96.8 % (95.0-99.0) 12/05/16 Unknown ABG O2 Content 9.9 (0.0-44) 12/05/16 Unknown POC ABG Base Excess 0 03/03/17: ABG Base Excess -3.4 mmol/L (-2.0-3.0) L 12/05/16 Unknown ABG Hemoglobin 7.4 gm/dl (12.0-16.0) L 12/05/16 Unknown ABG Carboxyhemoglobin 1.8 % (0.0-5.0) 12/05/16 Unknown ABG Methemoglobin 0.6 % (0.0-1.5) 12/05/16 Unknown Oxyhemoglobin 94.5 % (95.0-99.0) L 12/05/16 Unknown FiO2 40 % 03/03/17 20:17 Sodium 138 mmol/L (137-145) 03/20/17 Unknown Potassium 5.0 mmol/L (3.6-5.0) 03/20/17 Unknown Chloride 97.7 mmol/L (98-107) L 03/20/17 Unknown Carbon Dioxide 27 mmol/L (22-30) 03/20/17 Unknown Anion Gap 18 mmol/L 03/20/17 Unknown BUN 43 mg/dL (7-17) H 03/20/17 Unknown Creatinine 2.2 mg/dL (0.7-1.2) H 03/20/17 Unknown Estimated GFR 29 ml/min 03/20/17 Unknown BUN/Creatinine Ratio 20 % 03/20/17 Unknown Glucose 92 mg/dL (65-100) 03/20/17 Unknown POC Glucose 93 (70-105) 03/20/17 11:50 Osmolality 351 Mosm/kg 09/16/16 11:47 Lactic Acid 2.30 mmol/L (0.7-2.0) H* 01/09/17 08:22 Calcium 8.7 mg/dL (8.4-10.2) 03/20/17 Unknown Ionized Calcium 6.0 mg/dL (4.8-5.6) H 02/15/17 19:08 Phosphorus 5.30 mg/dL (2.5-4.5) H 03/20/17 Unknown Magnesium 1.90 mg/dL (1.7-2.3) 03/20/17 Unknown Total Bilirubin 0.40 mg/dL (0.1-1.2) 03/20/17 Unknown Direct Bilirubin 0.2 mg/dL (0-0.2) 01/28/17 04:00 Indirect Bilirubin 0.3 mg/dL 01/28/17 04:00 AST 11 units/L (5-40) 03/20/17 Unknown ALT 6 units/L (7-56) L 03/20/17 Unknown Alkaline Phosphatase 97 units/L (35-129) 03/20/17 Unknown Ammonia 27.0 umol/L (25-60) 09/07/16 08:37 Lactate Dehydrogenase 170 units/L (91-180) 01/13/17 15:50 Total Creatine Kinase 121 units/L (30-135) 09/29/16 20:12 CK-MB (CK-2) < 1.0 ng/mL (0.0-4.0) 09/29/16 20:12 CK-MB (CK-2) Rel Index 0.8 (0-4) 09/29/16 20:12 Troponin T 0.204 ng/mL (0.00-0.029) H* 09/29/16 20:12 C-Reactive Protein 19.50 mg/dL (0.00-1.30) H 03/14/17 12:51 Total Protein 6.9 g/dL (6.3-8.2) 03/20/17 Unknown Albumin 0.9 g/dL (3.9-5) L 03/20/17 Unknown Albumin/Globulin Ratio 0.2 % 03/20/17 Unknown Prealbumin 0.110 g/L (0.200-0.400) L 12/29/16 05:15 Triglycerides 94 mg/dL (2-149) 03/20/17 Unknown Cholesterol 31 mg/dL (50-199) L 09/29/16 20:12 LDL Cholesterol Direct 4 mg/dL (50-130) L 09/29/16 20:12 HDL Cholesterol 3 mg/dL (40-59) L 09/29/16 20:12 Cholesterol/HDL Ratio 10.33 % 09/29/16 20:12 Angiotensin Convert Enz See scanned report 09/08/16 11:48 Renin 0.99 ng/mL/h (0.25-5.82) 10/07/16 10:56 Aldosterone <1 ng/dL () 10/07/16 10:56 Aldosterone/Renin Dir see below 10/07/16 10:56 Serotonin Release Assay See scanned report 09/29/16 13:35 25-OH Vitamin D Total 13 ng/mL (30-100) L 02/15/17 19:08 25-Hydroxy Vitamin D2 . 02/15/17 19:08 25-Hydroxy Vitamin D3 . 02/15/17 19:08 TSH 1.010 mlU/mL (0.270-4.200) 09/07/16 08:37 HCG, Qual Negative (Negative) 09/03/16 00:10 PTH Intact 10.88 pg/mL (15-65) L 02/15/17 19:08 Total Cortisol 18.2 mcg/dL () 02/02/17 20:09 Urine Color Yellow (Yellow) 11/05/16 13:09 Urine Turbidity Clear (Clear) 11/05/16 13:09 Urine pH 9.0 (5.0-7.0) H 11/05/16 13:09 Ur Specific Mcguffey 1.011 (1.003-1.030) 11/05/16 13:09 Urine Protein 100 mg/dl mg/dL (Negative) 11/05/16 13:09 Urine Glucose (UA) Neg mg/dL (Negative) 11/05/16 13:09 Urine Ketones Neg mg/dL (Negative) 11/05/16 13:09 Urine Blood Neg (Negative) 11/05/16 13:09 Urine Nitrite Neg (Negative) 11/05/16 13:09 Urine Bilirubin Neg (Negative) 11/05/16 13:09 Urine Urobilinogen < 2.0 mg/dL (<2.0) 11/05/16 13:09 Ur Leukocyte Esterase Neg (Negative) 11/05/16 13:09 Urine WBC (Auto) 4.0 /HPF (0.0-6.0) 11/05/16 13:09 Urine RBC (Auto) 1.0 /HPF (0.0-6.0) 11/05/16 13:09 U Epithel Cells (Auto) 1.0 /HPF (0-13.0) 10/07/16 18:30 Urine Bacteria (Auto) 4+ /HPF (Negative) 11/05/16 13:09 Urine WBC Clumps 2+ /HPF 09/07/16 02:47 Hyaline Casts 4 /LPF 09/07/16 02:47 Urine Mucus Few /HPF 10/07/16 18:30 Urine Yeast (Budding) 3+ /HPF 10/07/16 18:30 Urine Eosinophils None seen (None Seen) 09/07/16 16:00 Urine Total Volume 950 11/12/16 10:18 Urine Creatinine 19.7 mg/dL (0.1-20.0) 11/12/16 10:18 Height (in) 65.0 inches 11/12/16 10:18 Weight (lb) 181.0 lbs 11/12/16 10:18 Creatinine Clearance 5 11/12/16 10:18 Urine Sodium 36 mEq/L 09/16/16 19:19 Urine Total Protein 16 mg/dL (5-11.8) H 09/16/16 19:19 Fluid Type Pleural 01/13/17 12:10 Fluid Color Yellow 01/13/17 12:10 Fluid Appearance Hazy 01/13/17 12:10 Fluid WBC 182 /mm3 01/13/17 12:10 Fluid RBC 41 /mm3 01/13/17 12:10 Fluid Seg Neutrophils 85.0 % 01/13/17 12:10 Fluid Lymphocytes 8.0 % 01/13/17 12:10 Fluid Reactive Lymphs 0 % 01/13/17 12:10 Fluid Monocytes 6.0 % 01/13/17 12:10 Fluid Eosinophils 1.0 % 01/13/17 12:10 Fluid Basophils 0 % 01/13/17 12:10 Fluid Total Protein 3.0 (15.0-45.0) L 01/13/17 12:10 Fluid LDH 1322 01/13/17 12:10 Fluid Comment Diff performed 01/13/17 12:10 Vancomycin Trough 2.3 ug/mL (5.0-20.0) L 09/21/16 13:00 Random Vancomycin 26.0 ug/mL (0-40.0) 03/13/17 05:39 Urine Opiates Screen Presumptive negative 09/03/16 15:11 Urine Methadone Screen Presumptive positive 09/03/16 15:11 Ur Barbiturates Screen Presumptive positive 09/03/16 15:11 Ur Phencyclidine Scrn Presumptive negative 09/03/16 15:11 Ur Amphetamines Screen Presumptive negative 09/03/16 15:11 U Benzodiazepines Scrn Presumptive negative 09/03/16 15:11 Urine Cocaine Screen Presumptive negative 09/03/16 15:11 U Marijuana (THC) Screen Presumptive positive 09/03/16 15:11 Drugs of Abuse Note Disclamer 09/03/16 15:11 Rheumatoid Factor 24 IU/ml (0-13) H 09/08/16 11:48 SAHIL Screen Negative (Negative) 09/07/16 09:20 Proteinase 3 (PR3) Ab <1.0 AI (<1.0) 09/07/16 09:20 Myeloperoxidase Ab <1.0 AI (<1.0) 09/07/16 09:20 Sjogren's Antibody <1.0 AI (<1.0) 09/08/16 15:35 Scl-70 Scleroderma Ab <1.0 AI (<1.0) 09/08/16 15:35 Centromere B Antibody <1.0 AI (<1.0) 09/08/16 12:02 Heparin-induced Plt Ab Negative (Negative) 09/29/16 13:35 UF Heparin High Dose 11 % Release 09/29/16 13:35 SUDHIR UFH Low Dose 0.1 6 % Release 09/29/16 13:35 SUDHIR UFH Low Dose 0.5 8 % Release 09/29/16 13:35 Cardiolipid IgG Ab <14 GPL (<=14) 09/12/16 09:59 Cardiolipid IgA Ab <11 APL (<=11) 09/12/16 09:59 Cardiolipid IgM Ab <12 MPL (<=12) 09/12/16 09:59 Complement C3 148 mg/dL (90-180) 09/07/16 09:20 Complement C4 58 mg/dL (16-47) H 09/07/16 09:20 RPR Nonreactive (Nonreactive) 09/08/16 11:48 Hepatitis A IgM Ab Non-reactive (NonReactive) 09/24/16 14:40 Hep Bs Antigen Non-reactive (Negative) 09/24/16 14:40 Hep B Core IgM Ab Non-reactive (NonReactive) 09/24/16 14:40 Hepatitis C Antibody Non-reactive (NonReactive) 09/24/16 14:40 HIV 1&2 Antibody Rapid Non react (Non React) 09/08/16 11:48 HIV P24 Antigen Non react (Non React) 09/08/16 11:48 Miscellaneous Test Flexitest 1 H 01/09/17 18:45 Blood Type A POSITIVE 03/20/17 16:00 Antibody Screen Negative 03/14/17 16:55 DELORIS Antibody Screen Negative 11/24/16 11:20 Crossmatch See Detail 03/20/17 16:00
[2017-03-20] MEDS ORDERED: INTRALIPID 20% 250 ML IV SCH (20:00)
[2017-03-20] MEDS ORDERED: TPN ADULT IV SCH (20:00)
[2017-03-20] MEDS: HEPARIN IV PRN (22:30)
[2017-03-20] MEDS: CORDARONE 900 MG in D5W 482 ML IV SCH (23:25)
[2017-03-21] MEDS: HumuLIN R SUB-Q SCH ×4 (00:27→18:00)
[2017-03-21] MEDS: LOPRESSOR IV SCH ×4 (01:23→20:00)
[2017-03-21] MEDS: LEVOPHED DRIP 4 MG/NS 250 ML 4 MG/250 ML BAG IV SCH (03:53)
[2017-03-21] MEDS: FLAGYL 500 MG/100 ML 500 MG/100 ML BAG IV SCH ×3 (05:35→22:07)
[2017-03-21 05:43] LABS: Basophils # (Auto) 0.1 K/mm3 (0.0-0.1); Basophils % (Auto) 0.9 % (0.0-1.8); Eosinophils # (Auto) 0.1 K/mm3 (0.0-0.4); Eosinophils % (Auto) 0.4 % (0.0-4.3); Hematocrit 24.6 % (30.3-42.9); Hemoglobin 8.8 gm/dl (10.1-14.3); Lymphocytes # (Auto) 2.3 K/mm3 (1.2-5.4); Lymphocytes % (Auto) 14.8 % (13.4-35.0); Mean Corpuscular HGB Conc 36 % (30-34); Mean Corpuscular Hemoglobin 33 pg (28-32); Mean Corpuscular Volume 92 fl (79-97); Monocytes # (Auto) 1.1 K/mm3 (0.0-0.8); Monocytes % (Auto) 7.1 % (0.0-7.3); Platelet Count 185 K/mm3 (140-440); Red Blood Count 2.68 M/mm3 (3.65-5.03); Red Cell Distribution Width 19.4 % (13.2-15.2)
--- NOTE | 2017-03-21 08:41 | Progress Note ---
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 Patient's serum creatinine is noted to be low - due to wasting of muscle mass. Needs to be maintained on dialysis at this time. * Abx per ID * Adjust Ca bath with dialysis * Rate control per cardiology * Transfuse pRBC per primary team. Epogen TIW prn * Vent management per pulm/CCM * Pressors prn for MAP>65 * Dose medications for renal function Subjective Date of service: 03/21/17 Principal diagnosis: Acute resp failure on MVS; S/P Acute CVA; Acute Encephalopathy; JUANITA Interval history: 24h events reviewed. Objective - Vital Signs Vital signs: Vital Signs - 12hr 03/20/17 03/20/17 03/20/17 20:45 21:00 21:15 Temperature Pulse Rate 116 H 115 H 115 H Respiratory 29 H 16 28 H Rate Blood Pressure 89/57 87/63 78/56 O2 Sat by Pulse 99 98 99 Oximetry O2 Sat by Pulse Oximetry [ Assessment] O2 Sat by Pulse Oximetry [ Throughout] 03/20/17 03/20/17 03/20/17 21:30 21:45 22:00 Temperature Pulse Rate 109 H 109 H 107 H Respiratory 27 H 20 16 Rate Blood Pressure 91/61 102/67 102/67 O2 Sat by Pulse 100 100 Oximetry O2 Sat by Pulse Oximetry [ Assessment] O2 Sat by Pulse Oximetry [ Throughout] 03/20/17 03/20/17 03/20/17 22:15 22:30 22:45 Temperature 98.1 F Pulse Rate 111 H 105 H 105 H Respiratory 28 H 17 20 Rate Blood Pressure 103/72 101/63 103/60 O2 Sat by Pulse 96 100 100 Oximetry O2 Sat by Pulse Oximetry [ Assessment] O2 Sat by Pulse 99 Oximetry [ Throughout] 03/20/17 03/20/17 03/20/17 23:00 23:05 23:14 Temperature 97.8 F Pulse Rate 103 H Respiratory 15 Rate Blood Pressure 99/60 O2 Sat by Pulse Oximetry O2 Sat by Pulse 99 Oximetry [ Assessment] O2 Sat by Pulse Oximetry [ Throughout] 03/20/17 03/20/17 03/20/17 23:15 23:30 23:45 Temperature Pulse Rate 102 H 115 H 106 H Respiratory 19 33 H 18 Rate Blood Pressure 109/66 113/75 98/57 O2 Sat by Pulse 100 99 99 Oximetry O2 Sat by Pulse Oximetry [ Assessment] O2 Sat by Pulse Oximetry [ Throughout] 03/20/17 03/21/17 03/21/17 23:56 00:00 00:15 Temperature Pulse Rate 104 H 106 H 107 H Respiratory 12 17 21 Rate Blood Pressure 98/57 98/63 93/63 O2 Sat by Pulse 99 100 Oximetry O2 Sat by Pulse Oximetry [ Assessment] O2 Sat by Pulse Oximetry [ Throughout] 03/21/17 03/21/17 03/21/17 00:30 00:45 01:00 Temperature Pulse Rate 103 H 104 H 103 H Respiratory 19 13 22 Rate Blood Pressure 89/54 95/60 87/58 O2 Sat by Pulse 98 98 Oximetry O2 Sat by Pulse Oximetry [ Assessment] O2 Sat by Pulse Oximetry [ Throughout] 03/21/17 03/21/17 03/21/17 01:15 01:16 01:23 Temperature Pulse Rate 101 H 102 H Respiratory 19 Rate Blood Pressure 92/53 105/59 92/53 O2 Sat by Pulse 98 100 Oximetry O2 Sat by Pulse Oximetry [ Assessment] O2 Sat by Pulse Oximetry [ Throughout] 03/21/17 03/21/17 03/21/17 01:30 01:45 02:00 Temperature Pulse Rate 101 H 101 H 99 H Respiratory 12 14 13 Rate Blood Pressure 99/56 100/60 95/61 O2 Sat by Pulse 99 Oximetry O2 Sat by Pulse Oximetry [ Assessment] O2 Sat by Pulse Oximetry [ Throughout] 03/21/17 03/21/17 03/21/17 02:15 02:30 02:45 Temperature Pulse Rate 96 H 99 H 99 H Respiratory 21 17 21 Rate Blood Pressure 99/59 103/67 87/46 O2 Sat by Pulse 99 94 Oximetry O2 Sat by Pulse Oximetry [ Assessment] O2 Sat by Pulse Oximetry [ Throughout] 03/21/17 03/21/17 03/21/17 03:00 03:15 03:30 Temperature Pulse Rate 99 H 100 H 98 H Respiratory 22 13 18 Rate Blood Pressure 97/57 87/56 88/56 O2 Sat by Pulse 98 100 99 Oximetry O2 Sat by Pulse Oximetry [ Assessment] O2 Sat by Pulse Oximetry [ Throughout] 03/21/17 03/21/17 03/21/17 03:45 03:50 04:00 Temperature 98.4 F Pulse Rate 100 H 98 H Respiratory 15 18 Rate Blood Pressure 98/62 105/54 O2 Sat by Pulse 99 99 Oximetry O2 Sat by Pulse Oximetry [ Assessment] O2 Sat by Pulse Oximetry [ Throughout] 03/21/17 03/21/17 03/21/17 04:15 04:16 04:30 Temperature Pulse Rate 97 H 98 H 99 H Respiratory 15 17 Rate Blood Pressure 98/56 95/57 O2 Sat by Pulse 99 Oximetry O2 Sat by Pulse Oximetry [ Assessment] O2 Sat by Pulse Oximetry [ Throughout] 03/21/17 03/21/17 03/21/17 04:45 05:00 05:15 Temperature Pulse Rate 97 H 97 H 98 H Respiratory 16 17 12 Rate Blood Pressure 96/63 94/63 101/59 O2 Sat by Pulse 100 100 100 Oximetry O2 Sat by Pulse Oximetry [ Assessment] O2 Sat by Pulse Oximetry [ Throughout] 03/21/17 03/21/17 03/21/17 05:30 05:45 06:00 Temperature Pulse Rate 98 H 99 H 100 H Respiratory 20 14 21 Rate Blood Pressure 100/66 96/66 106/62 O2 Sat by Pulse 99 100 99 Oximetry O2 Sat by Pulse Oximetry [ Assessment] O2 Sat by Pulse Oximetry [ Throughout] 03/21/17 03/21/17 03/21/17 06:15 06:30 06:45 Temperature Pulse Rate 99 H 99 H 98 H Respiratory 15 16 18 Rate Blood Pressure 103/63 110/71 100/62 O2 Sat by Pulse 100 Oximetry O2 Sat by Pulse Oximetry [ Assessment] O2 Sat by Pulse Oximetry [ Throughout] - General Appearance General appearance: intubated EENT: ATNC Neck: other (trach) Respiratory: Present: Other (coarse breath sounds) Cardiology: tachycardia Gastrointestinal: hypoactive bowel sounds Neurologic: no focal deficit Musculoskeletal: other (+dependent edema) Psychiatric: cooperative - Lab 03/21/17 04:57 03/20/17 Unknown Most recent lab results ABG pH 7.450 pH Units (7.350-7.450) 12/05/16 Unknown ABG pCO2 29.6 mm Hg 12/05/16 Unknown ABG pO2 75.2 mm Hg (80.0-90.0) L 12/05/16 Unknown ABG HCO3 20.1 mmol/L (20.0-26.0) 12/05/16 Unknown ABG O2 Saturation 96.8 % (95.0-99.0) 12/05/16 Unknown Calcium 8.7 mg/dL (8.4-10.2) 03/20/17 Unknown Phosphorus 5.30 mg/dL (2.5-4.5) H 03/20/17 Unknown Magnesium 1.90 mg/dL (1.7-2.3) 03/20/17 Unknown Urine Creatinine 19.7 mg/dL (0.1-20.0) 11/12/16 10:18 Urine Sodium 36 mEq/L 09/16/16 19:19 Urine Total Protein 16 mg/dL (5-11.8) H 09/16/16 19:19
[2017-03-21] MEDS: DUONEB *Not for PRN Use IH SCH ×3 (08:50→20:11)
[2017-03-21] MEDS: PEPCID IV SCH (09:59)
[2017-03-21] MEDS: MAXIPIME 1 GM in NACL 0.9% 20 ML IV SCH (09:59)
[2017-03-21] MEDS: HEPARIN SUB-Q SCH ×2 (10:00→22:05)
--- NOTE | 2017-03-21 14:54 | Progress Note ---
Assessment and Plan Assessment and plan: 47-year-old female patient multiple medical problems, large CVA , hypoxic encephalopathy , status post cardiac arrest , vegetative state , atrial fibrillation , sepsis , aspiration pneumonia , end-stage renal disease on hemodialysis , multiple sacral and lower extremity decubiti requiring debridement , severe protein calorie malnutrition peritonitis / perforation, multiple surgeries, DO NOT RESUSCITATE status,prolonged hospital stay and poor prognosis, --Large CVA; with midline shift, supportive care --Persistent vegetative state/DO NOT RESUSCITATE status, family not ready for hospice --Status post cardiac arrest/anoxic encephalopathy/status post tracheostomy -- sepsis,recurrent enterococcal bacteremia ; continue cefepime and metronidazole per ID --Perforated bowel/large fluid collection, s/p drain placement; management per surgery --Acute respiratory failure status post tracheostomy vent dependent --Hypotension; monitor Levophed as needed --A. fib with rapid ventricular rate; continue amiodarone --Peritonitis ; due to gastric perforation, status post exploratory laparotomy, but gastrostomy, abdominal washout and drain placement, on TPN --End-stage renal disease on when necessary hemodialysis --Aspiration pneumonia; completed multiple courses of antibiotics, ID following --Severe protein calorie malnutrition; nutrition consult and supportive care --Multiple sacral and lower extremity decubitus ulcers; status post debridement , continue wound care --DO NOT RESUSCITATE status Continue current management Poor prognosis Family aware History Interval history: Patient seen and evaluated medical records reviewed Clinically no change Tracheostomy on vent Vital signs reviewed Hospitalist Physical - Constitutional Vitals: Temp Pulse Resp BP Pulse Ox 98.6 F 84 31 H 91/53 99 03/21/17 12:00 03/21/17 13:55 03/21/17 13:55 03/21/17 13:55 03/21/17 12:45 General appearance: Present: no acute distress, cachectic, other (spontaneous opening of eyes, unresponsive) - EENT Eyes: Present: PERRL, EOM intact - Neck Neck: Present: supple, other (tracheostomy) - Respiratory Respiratory effort: normal Respiratory: bilateral: diminished, rhonchi, negative: rales, wheezing - Cardiovascular Rhythm: irregularly irregular Heart Sounds: Present: S1 & S2 - Extremities Extremities: abnormal (contracted) Extremity abnormal: edema - Abdominal General gastrointestinal: soft, non-tender, non-distended, normal bowel sounds - Integumentary Integumentary: Present: clear, warm - Psychiatric Psychiatric: other (unresponsive) - Neurologic Neurologic: other (unresponsive) Results - Labs CBC & Chem 7: 03/21/17 04:57 03/20/17 Unknown Labs: Laboratory Last Values WBC 15.3 K/mm3 (4.5-11.0) H 03/21/17 04:57 RBC 2.68 M/mm3 (3.65-5.03) L 03/21/17 04:57 Hgb 8.8 gm/dl (10.1-14.3) L 03/21/17 04:57 Hct 24.6 % (30.3-42.9) L 03/21/17 04:57 MCV 92 fl (79-97) 03/21/17 04:57 MCH 33 pg (28-32) H 03/21/17 04:57 MCHC 36 % (30-34) H 03/21/17 04:57 RDW 19.4 % (13.2-15.2) H 03/21/17 04:57 Plt Count 185 K/mm3 (140-440) 03/21/17 04:57 Lymph % (Auto) 14.8 % (13.4-35.0) 03/21/17 04:57 Lea % (Auto) 7.1 % (0.0-7.3) 03/21/17 04:57 Eos % (Auto) 0.4 % (0.0-4.3) 03/21/17 04:57 Baso % (Auto) 0.9 % (0.0-1.8) 03/21/17 04:57 Lymph # 2.3 K/mm3 (1.2-5.4) 03/21/17 04:57 Lea # 1.1 K/mm3 (0.0-0.8) H 03/21/17 04:57 Eos # 0.1 K/mm3 (0.0-0.4) 03/21/17 04:57 Baso # 0.1 K/mm3 (0.0-0.1) 03/21/17 04:57 Add Manual Diff Complete 03/14/17 14:30 Total Counted 100 03/14/17 14:30 Seg Neutrophils % 76.8 % (40.0-70.0) H 03/21/17 04:57 Seg Neuts % (Manual) 70.0 % (40.0-70.0) 03/14/17 14:30 Band Neutrophils % 0 % 03/14/17 14:30 Lymphocytes % (Manual) 13.0 % (13.4-35.0) L 03/14/17 14:30 Reactive Lymphs % (Man) 1.0 % 03/14/17 14:30 Monocytes % (Manual) 15.0 % (0.0-7.3) H 03/14/17 14:30 Eosinophils % (Manual) 1.0 % (0.0-4.3) 03/14/17 14:30 Basophils % (Manual) 0 % (0.0-1.8) 03/14/17 14:30 Metamyelocytes % 0 % 03/14/17 14:30 Myelocytes % 0 % 03/14/17 14:30 Promyelocytes % 0 % 03/14/17 14:30 Blast Cells % 0 % 03/14/17 14:30 Nucleated RBC % Not Reportable 03/14/17 14:30 Seg Neutrophils # 11.7 K/mm3 (1.8-7.7) H 03/21/17 04:57 Seg Neutrophils # Man 12.3 K/mm3 (1.8-7.7) H 03/14/17 14:30 Band Neutrophils # 0.0 K/mm3 03/14/17 14:30 Lymphocytes # (Manual) 2.3 K/mm3 (1.2-5.4) 03/14/17 14:30 Abs React Lymphs (Man) 0.2 K/mm3 03/14/17 14:30 Monocytes # (Manual) 2.6 K/mm3 (0.0-0.8) H 03/14/17 14:30 Eosinophils # (Manual) 0.2 K/mm3 (0.0-0.4) 03/14/17 14:30 Basophils # (Manual) 0.0 K/mm3 (0.0-0.1) 03/14/17 14:30 Metamyelocytes # 0.0 K/mm3 03/14/17 14:30 Myelocytes # 0.0 K/mm3 03/14/17 14:30 Promyelocytes # 0.0 K/mm3 03/14/17 14:30 Blast Cells # 0.0 K/mm3 03/14/17 14:30 Pathologist Review 09/13/16 04:00 WBC Morphology Not Reportable 03/14/17 14:30 Hypersegmented Neuts Not Reportable 03/14/17 14:30 Hyposegmented Neuts Not Reportable 03/14/17 14:30 Hypogranular Neuts Not Reportable 03/14/17 14:30 Smudge Cells Not Reportable 03/14/17 14:30 Toxic Granulation Not Reportable 03/14/17 14:30 Toxic Vacuolation Not Reportable 03/14/17 14:30 Dohle Bodies Not Reportable 03/14/17 14:30 Pelger-Huet Anomaly Not Reportable 03/14/17 14:30 Jasmina Rods Not Reportable 03/14/17 14:30 Platelet Estimate Consistent w auto 03/14/17 14:30 Clumped Platelets Not Reportable 03/14/17 14:30 Plt Clumps, EDTA Not Reportable 03/14/17 14:30 Large Platelets Not Reportable 03/14/17 14:30 Giant Platelets Not Reportable 03/14/17 14:30 Platelet Satelliting Not Reportable 03/14/17 14:30 Plt Morphology Comment Not Reportable 03/14/17 14:30 RBC Morphology Not Reportable 03/14/17 14:30 Dimorphic RBCs Not Reportable 03/14/17 14:30 Polychromasia Not Reportable 03/14/17 14:30 Hypochromasia 2+ 03/14/17 14:30 Poikilocytosis Not Reportable 03/14/17 14:30 Anisocytosis 1+ 03/14/17 14:30 Microcytosis Not Reportable 03/14/17 14:30 Macrocytosis Not Reportable 03/14/17 14:30 Spherocytes Not Reportable 03/14/17 14:30 Pappenheimer Bodies Not Reportable 03/14/17 14:30 Sickle Cells Not Reportable 03/14/17 14:30 Target Cells Not Reportable 03/14/17 14:30 Tear Drop Cells Not Reportable 03/14/17 14:30 Ovalocytes Not Reportable 03/14/17 14:30 Stomatocytes 2+ 03/14/17 14:30 Helmet Cells Not Reportable 03/14/17 14:30 Monet-Knappa Bodies Not Reportable 03/14/17 14:30 [place] Rings Not Reportable 03/14/17 14:30 Chuck Cells Not Reportable 03/14/17 14:30 Bite Cells Not Reportable 03/14/17 14:30 Crenated Cell Not Reportable 03/14/17 14:30 Elliptocytes Not Reportable 03/14/17 14:30 Acanthocytes (Spur) Not Reportable 03/14/17 14:30 Rouleaux Not Reportable 03/14/17 14:30 Hemoglobin C Crystals Not Reportable 03/14/17 14:30 Schistocytes Not Reportable 03/14/17 14:30 Malaria parasites Not Reportable 03/14/17 14:30 ESR > 140.0 mm/Hr (0-20) 09/08/16 11:48 Jun Bodies Not Reportable 03/14/17 14:30 Hem Pathologist Commnt No 03/14/17 14:30 PT 15.4 Sec. (12.2-14.9) H 01/13/17 15:50 INR 1.16 (0.87-1.13) H 01/13/17 15:50 APTT 33.0 Sec. (24.2-36.6) 10/09/16 03:45 Thrombin Time 16.8 Sec. (15.1-19.6) 09/03/16 00:10 Fibrinogen 750 mg/dl (211-480) H 09/08/16 11:48 Lupus Anticoagulant see below 09/12/16 09:59 LA PTT Baseline See scanned report 09/12/16 09:59 dRVVT Confirm Interp Positive (Negative) H 09/12/16 09:59 dRVVT Screen 50:50 See scanned report 09/12/16 09:59 dRVVT Mix Interpret See scanned report 09/12/16 09:59 Protein C Antigen 122 % (70-140) 09/08/16 15:35 Free Protein S 97 % normal (50-147) 09/08/16 15:35 Total Protein S 109 % (70-140) 09/08/16 15:35 Antithrombin III Ag 100 % (80-120) 09/08/16 15:35 Heparin Anti-Xa, Unfract Negative (Negative) 09/29/16 13:35 Factor V Activity 182 % (65-150) H 09/08/16 15:35 POC ABG pH 7.518 (7.35-7.45) H 03/03/17 20:17 ABG pH 7.450 pH Units (7.350-7.450) 12/05/16 Unknown POC ABG pCO2 28.8 (35-45) L 03/03/17 20:17 ABG pCO2 29.6 mm Hg 12/05/16 Unknown POC ABG pO2 61 (80-105) L 03/03/17 20: ABG pO2 75.2 mm Hg (80.0-90.0) L 12/05/16 Unknown POC ABG HCO3 23.4 03/03/17 20:17 ABG HCO3 20.1 mmol/L (20.0-26.0) 12/05/16 Unknown POC ABG Total CO2 24 03/03/17 20:17 POC ABG O2 Sat 94 03/03/17 20:17 ABG O2 Saturation 96.8 % (95.0-99.0) 12/05/16 Unknown ABG O2 Content 9.9 (0.0-44) 12/05/16 Unknown POC ABG Base Excess 0 03/03/17 20:17 ABG Base Excess -3.4 mmol/L (-2.0-3.0) L 12/05/16 Unknown ABG Hemoglobin 7.4 gm/dl (12.0-16.0) L 12/05/16 Unknown ABG Carboxyhemoglobin 1.8 % (0.0-5.0) 12/05/16 Unknown ABG Methemoglobin 0.6 % (0.0-1.5) 12/05/16 Unknown Oxyhemoglobin 94.5 % (95.0-99.0) L 12/05/16 Unknown FiO2 40 % 03/03/17 20:17 Sodium 138 mmol/L (137-145) 03/20/17 Unknown Potassium 5.0 mmol/L (3.6-5.0) 03/20/17 Unknown Chloride 97.7 mmol/L (98-107) L 03/20/17 Unknown Carbon Dioxide 27 mmol/L (22-30) 03/20/17 Unknown Anion Gap 18 mmol/L 03/20/17 Unknown BUN 43 mg/dL (7-17) H 03/20/17 Unknown Creatinine 2.2 mg/dL (0.7-1.2) H 03/20/17 Unknown Estimated GFR 29 ml/min 03/20/17 Unknown BUN/Creatinine Ratio 20 % 03/20/17 Unknown Glucose 92 mg/dL (65-100) 03/20/17 Unknown POC Glucose 111 (70-105) H 03/21/17 05:20 Osmolality 351 Mosm/kg 09/16/16 11:47 Lactic Acid 2.30 mmol/L (0.7-2.0) H* 01/09/17 08:22 Calcium 8.7 mg/dL (8.4-10.2) 03/20/17 Unknown Ionized Calcium 6.0 mg/dL (4.8-5.6) H 02/15/17 19:08 Phosphorus 5.30 mg/dL (2.5-4.5) H 03/20/17 Unknown Magnesium 1.90 mg/dL (1.7-2.3) 03/20/17 Unknown Total Bilirubin 0.40 mg/dL (0.1-1.2) 03/20/17 Unknown Direct Bilirubin 0.2 mg/dL (0-0.2) 01/28/17 04:00 Indirect Bilirubin 0.3 mg/dL 01/28/17 04:00 AST 11 units/L (5-40) 03/20/17 Unknown ALT 6 units/L (7-56) L 03/20/17 Unknown Alkaline Phosphatase 97 units/L (35-129) 03/20/17 Unknown Ammonia 27.0 umol/L (25-60) 09/07/16 08:37 Lactate Dehydrogenase 170 units/L (91-180) 01/13/17 15:50 Total Creatine Kinase 121 units/L (30-135) 09/29/16 20:12 CK-MB (CK-2) < 1.0 ng/mL (0.0-4.0) 09/29/16 20:12 CK-MB (CK-2) Rel Index 0.8 (0-4) 09/29/16 20:12 Troponin T 0.204 ng/mL (0.00-0.029) H* 09/29/16 20:12 C-Reactive Protein 19.50 mg/dL (0.00-1.30) H 03/14/17 12:51 Total Protein 6.9 g/dL (6.3-8.2) 03/20/17 Unknown Albumin 0.9 g/dL (3.9-5) L 03/20/17 Unknown Albumin/Globulin Ratio 0.2 % 03/20/17 Unknown Prealbumin 0.110 g/L (0.200-0.400) L 12/29/16 05:15 Triglycerides 94 mg/dL (2-149) 03/20/17 Unknown Cholesterol 31 mg/dL (50-199) L 09/29/16 20:12 LDL Cholesterol Direct 4 mg/dL (50-130) L 09/29/16 20:12 HDL Cholesterol 3 mg/dL (40-59) L 09/29/16 20:12 Cholesterol/HDL Ratio 10.33 % 09/29/16 20:12 Angiotensin Convert Enz See scanned report 09/08/16 11:48 Renin 0.99 ng/mL/h (0.25-5.82) 10/07/16 10:56 Aldosterone <1 ng/dL () 10/07/16 10:56 Aldosterone/Renin Dir see below 10/07/16 10:56 Serotonin Release Assay See scanned report 09/29/16 13:35 25-OH Vitamin D Total 13 ng/mL (30-100) L 02/15/17 19:08 25-Hydroxy Vitamin D2 . 02/15/17 19:08 25-Hydroxy Vitamin D3 . 02/15/17 19:08 TSH 1.010 mlU/mL (0.270-4.200) 09/07/16 08:37 HCG, Qual Negative (Negative) 09/03/16 00:10 PTH Intact 10.88 pg/mL (15-65) L 02/15/17 19:08 Total Cortisol 18.2 mcg/dL () 02/02/17 20:09 Urine Color Yellow (Yellow) 11/05/16 13:09 Urine Turbidity Clear (Clear) 11/05/16 13:09 Urine pH 9.0 (5.0-7.0) H 11/05/16 13:09 Ur Specific Superior 1.011 (1.003-1.030) 11/05/16 13:09 Urine Protein 100 mg/dl mg/dL (Negative) 11/05/16 13:09 Urine Glucose (UA) Neg mg/dL (Negative) 11/05/16 13:09 Urine Ketones Neg mg/dL (Negative) 11/05/16 13:09 Urine Blood Neg (Negative) 11/05/16 13:09 Urine Nitrite Neg (Negative) 11/05/16 13:09 Urine Bilirubin Neg (Negative) 11/05/16 13:09 Urine Urobilinogen < 2.0 mg/dL (<2.0) 11/05/16 13:09 Ur Leukocyte Esterase Neg (Negative) 11/05/16 13:09 Urine WBC (Auto) 4.0 /HPF (0.0-6.0) 11/05/16 13:09 Urine RBC (Auto) 1.0 /HPF (0.0-6.0) 11/05/16 13:09 U Epithel Cells (Auto) 1.0 /HPF (0-13.0) 10/07/16 18:30 Urine Bacteria (Auto) 4+ /HPF (Negative) 11/05/16 13:09 Urine WBC Clumps 2+ /HPF 09/07/16 02:47 Hyaline Casts 4 /LPF 09/07/16 02:47 Urine Mucus Few /HPF 10/07/16 18:30 Urine Yeast (Budding) 3+ /HPF 10/07/16 18:30 Urine Eosinophils None seen (None Seen) 09/07/16 16:00 Urine Total Volume 950 11/12/16 10:18 Urine Creatinine 19.7 mg/dL (0.1-20.0) 11/12/16 10:18 Height (in) 65.0 inches 11/12/16 10:18 Weight (lb) 181.0 lbs 11/12/16 10:18 Creatinine Clearance 5 11/12/16 10:18 Urine Sodium 36 mEq/L 09/16/16 19:19 Urine Total Protein 16 mg/dL (5-11.8) H 09/16/16 19:19 Fluid Type Pleural 01/13/17 12:10 Fluid Color Yellow 01/13/17 12:10 Fluid Appearance Hazy 01/13/17 12:10 Fluid WBC 182 /mm3 01/13/17 12:10 Fluid RBC 41 /mm3 01/13/17 12:10 Fluid Seg Neutrophils 85.0 % 01/13/17 12:10 Fluid Lymphocytes 8.0 % 01/13/17 12:10 Fluid Reactive Lymphs 0 % 01/13/17 12:10 Fluid Monocytes 6.0 % 01/13/17 12:10 Fluid Eosinophils 1.0 % 01/13/17 12:10 Fluid Basophils 0 % 01/13/17 12:10 Fluid Total Protein 3.0 (15.0-45.0) L 01/13/17 12:10 Fluid LDH 1322 01/13/17 12:10 Fluid Comment Diff performed 01/13/17 12:10 Vancomycin Trough 2.3 ug/mL (5.0-20.0) L 09/21/16 13:00 Random Vancomycin 26.0 ug/mL (0-40.0) 03/13/17 05:39 Urine Opiates Screen Presumptive negative 09/03/16 15:11 Urine Methadone Screen Presumptive positive 09/03/16 15:11 Ur Barbiturates Screen Presumptive positive 09/03/16 15:11 Ur Phencyclidine Scrn Presumptive negative 09/03/16 15:11 Ur Amphetamines Screen Presumptive negative 09/03/16 15:11 U Benzodiazepines Scrn Presumptive negative 09/03/16 15:11 Urine Cocaine Screen Presumptive negative 09/03/16 15:11 U Marijuana (THC) Screen Presumptive positive 09/03/16 15:11 Drugs of Abuse Note Disclamer 09/03/16 15:11 Rheumatoid Factor 24 IU/ml (0-13) H 09/08/16 11:48 SAHIL Screen Negative (Negative) 09/07/16 09:20 Proteinase 3 (PR3) Ab <1.0 AI (<1.0) 09/07/16 09:20 Myeloperoxidase Ab <1.0 AI (<1.0) 09/07/16 09:20 Sjogren's Antibody <1.0 AI (<1.0) 09/08/16 15:35 Scl-70 Scleroderma Ab <1.0 AI (<1.0) 09/08/16 15:35 Centromere B Antibody <1.0 AI (<1.0) 09/08/16 12:02 Heparin-induced Plt Ab Negative (Negative) 09/29/16 13:35 UF Heparin High Dose 11 % Release 09/29/16 13:35 SUDHIR UFH Low Dose 0.1 6 % Release 09/29/16 13:35 SUDHIR UFH Low Dose 0.5 8 % Release 09/29/16 13:35 Cardiolipid IgG Ab <14 GPL (<=14) 09/12/16 09:59 Cardiolipid IgA Ab <11 APL (<=11) 09/12/16 09:59 Cardiolipid IgM Ab <12 MPL (<=12) 09/12/16 09:59 Complement C3 148 mg/dL (90-180) 09/07/16 09:20 Complement C4 58 mg/dL (16-47) H 09/07/16 09:20 RPR Nonreactive (Nonreactive) 09/08/16 11:48 Hepatitis A IgM Ab Non-reactive (NonReactive) 09/24/16 14:40 Hep Bs Antigen Non-reactive (Negative) 09/24/16 14:40 Hep B Core IgM Ab Non-reactive (NonReactive) 09/24/16 14:40 Hepatitis C Antibody Non-reactive (NonReactive) 09/24/16 14:40 HIV 1&2 Antibody Rapid Non react (Non React) 09/08/16 11:48 HIV P24 Antigen Non react (Non React) 09/08/16 11:48 Miscellaneous Test Flexitest 1 H 01/09/17 18:45 Blood Type A POSITIVE 03/20/17 16:00 Antibody Screen Negative 03/20/17 16:00 DELORIS Antibody Screen Negative 11/24/16 11:20 Crossmatch See Detail 03/20/17 16:00
--- NOTE | 2017-03-21 16:51 | Progress Note ---
Assessment and Plan Patient is 46-year-old woman with a history of hypertension, diabetes mellitus, asthma, hyperlipidemia, chronic kidney disease and anxiety, who was brought in by family because she couldn't get her words out, her face was also twisted, she was admitted for acute CVA and accelerated hypertension, she had a hx of poor adherence with her medications, and uncontrolled hypertension. Patient's SBP on admission was noted be greater than 260. TPA was started but this it was discontinued after 5 minutes because her blood pressure became uncontrolled. The TPA was not initiated again because the patient was outside the TPA window. Patient has had a prolonged hospital stay complicated with recurrent severe sepsis. Patient with most recent event also status post cardiac arrest on 11/21/16 , with CPR and ROSC. Acute on chronic Hypoxemic Respiratory Failure Sepsis -recurrent Intrabdominal abscess s/p peritoneal drain per IR s/p tracheostomy Hypertension Atrial Fibrillation with RVR Acute encephalopathy s/p CVA Oropharyngeal dysphagia Enterococcal bacteremia Sacral Decubitus Ulcer- unstageable s/p debridement Anemia Obesity JUANITA now on hemodialysis prn Enteric Fistula - VAP bundle addressed - continue NGT to LIS - continue wound care/wound vac per WCT - Vasopressor if MAP falls < 65mmHg - keep on with daily PSV trials and / or T-piece as tolerated - continue TPN administration (continue TPN; NPO except for meds) - continue airway clearance and secretion management - continue to wean FiO2 for sats > 94% - continue to monitor hemodynamics closely - continue HD/UF per nephrology - continue to follow electrolytes and correct as necessary - continue GI & VTE prophylaxis Transfuse 1 unit PRBC as needed to keep HgH>7g/dL .....she remains critically ill on life sustaining interventions including MVS and at risk for further deterioration including ...snf prognosis remains poor ...DNR in the event of cardiac arrest - Patient Problems (1) Acute respiratory failure with hypoxia Current Visit: Yes Status: Acute (2) Acute blood loss anemia Current Visit: Yes Status: Resolved (3) Acute CVA (cerebrovascular accident) Current Visit: Yes Status: Acute (4) Chronic renal insufficiency Current Visit: Yes Status: Acute (5) Uncontrolled hypertension Current Visit: Yes Status: Acute (6) Leukocytosis (leucocytosis) Current Visit: Yes Status: Acute Qualifiers: Leukocytosis type: leukemoid reaction Qualified Code(s): D72.823 - Leukemoid reaction (7) Dislodged gastrostomy tube Current Visit: Yes Status: Acute (8) Fungemia Current Visit: Yes Status: Resolved (9) Cardiopulmonary arrest with successful resuscitation Current Visit: Yes Status: Acute Subjective Date of service: 03/21/17 Principal diagnosis: Acute resp failure on MVS; S/P Acute CVA; Acute Encephalopathy; JUANITA Interval history: Patient is seen today for: Acute resp failure on MVS; S/P Acute CVA; Acute Encephalopathy; JUANITA Seen and examined at bedside; 24hour events reviewed; nursing and respiratory care staff consulted; no adverse overnight events reported to me; she remains chronically critically ill. No fevers Off norepinephrine and WCC trending down since bed side intra abdominal drain was placed. Discussed during interdisciplinary ICU team rounds Objective Vital Signs - 12hr 03/21/17 03/21/17 03/21/17 05:00 05:15 05:30 Temperature Pulse Rate 97 H 98 H 98 H Pulse Rate [ From Monitor] Respiratory 17 12 20 Rate Blood Pressure 94/63 101/59 100/66 O2 Sat by Pulse 100 100 99 Oximetry O2 Sat by Pulse Oximetry [ Assessment] 03/21/17 03/21/17 03/21/17 05:45 06:00 06:15 Temperature Pulse Rate 99 H 100 H 99 H Pulse Rate [ From Monitor] Respiratory 14 21 15 Rate Blood Pressure 96/66 106/62 103/63 O2 Sat by Pulse 100 99 100 Oximetry O2 Sat by Pulse Oximetry [ Assessment] 03/21/17 03/21/17 03/21/17 06:30 06:45 07:00 Temperature Pulse Rate 99 H 98 H 95 H Pulse Rate [ From Monitor] Respiratory 16 18 14 Rate Blood Pressure 110/71 100/62 97/61 O2 Sat by Pulse 99 Oximetry O2 Sat by Pulse Oximetry [ Assessment] 03/21/17 03/21/17 03/21/17 07:15 07:30 07:45 Temperature Pulse Rate 95 H 95 H 94 H Pulse Rate [ From Monitor] Respiratory 13 13 14 Rate Blood Pressure 102/63 102/59 110/65 O2 Sat by Pulse 99 99 Oximetry O2 Sat by Pulse Oximetry [ Assessment] 03/21/17 03/21/17 03/21/17 08:00 08:15 08:30 Temperature 97.5 F L Pulse Rate 91 H 97 H 96 H Pulse Rate [ 91 H From Monitor] Respiratory 13 12 13 Rate Blood Pressure 103/55 99/53 98/59 O2 Sat by Pulse 99 99 99 Oximetry O2 Sat by Pulse Oximetry [ Assessment] 03/21/17 03/21/17 03/21/17 08:45 08:56 09:00 Temperature Pulse Rate 96 H 93 H 95 H Pulse Rate [ From Monitor] Respiratory 17 19 22 Rate Blood Pressure 89/53 89/53 96/63 O2 Sat by Pulse 99 100 100 Oximetry O2 Sat by Pulse Oximetry [ Assessment] 03/21/17 03/21/17 03/21/17 09:15 09:25 09:30 Temperature Pulse Rate 97 H 97 H Pulse Rate [ From Monitor] Respiratory 21 18 Rate Blood Pressure 101/65 95/63 O2 Sat by Pulse 100 Oximetry O2 Sat by Pulse 98 Oximetry [ Assessment] 03/21/17 03/21/17 03/21/17 09:45 10:00 10:15 Temperature Pulse Rate 94 H 95 H 96 H Pulse Rate [ From Monitor] Respiratory 21 20 32 H Rate Blood Pressure 108/63 115/69 84/44 O2 Sat by Pulse 100 100 97 Oximetry O2 Sat by Pulse Oximetry [ Assessment] 03/21/17 03/21/17 03/21/17 10:30 10:45 11:00 Temperature Pulse Rate 91 H 92 H 90 Pulse Rate [ From Monitor] Respiratory 31 H 30 H 30 H Rate Blood Pressure 84/48 87/55 97/63 O2 Sat by Pulse 98 98 98 Oximetry O2 Sat by Pulse Oximetry [ Assessment] 03/21/17 03/21/17 03/21/17 11:15 11:30 11:45 Temperature Pulse Rate 88 88 87 Pulse Rate [ From Monitor] Respiratory 31 H 30 H 30 H Rate Blood Pressure 92/56 103/66 92/51 O2 Sat by Pulse 99 99 99 Oximetry O2 Sat by Pulse Oximetry [ Assessment] 03/21/17 03/21/17 03/21/17 12:00 12:15 12:30 Temperature 98.6 F Pulse Rate 86 87 91 H Pulse Rate [ 86 From Monitor] Respiratory 29 H 31 H 31 H Rate Blood Pressure 92/57 94/55 111/70 O2 Sat by Pulse 100 99 Oximetry O2 Sat by Pulse Oximetry [ Assessment] 03/21/17 03/21/17 03/21/17 12:45 13:00 13:01 Temperature Pulse Rate 89 93 H 93 H Pulse Rate [ From Monitor] Respiratory 28 H 33 H Rate Blood Pressure 105/67 103/72 105/67 O2 Sat by Pulse 99 100 Oximetry O2 Sat by Pulse Oximetry [ Assessment] 03/21/17 03/21/17 03/21/17 13:15 13:30 13:45 Temperature Pulse Rate 91 H 88 88 Pulse Rate [ From Monitor] Respiratory 30 H 30 H 32 H Rate Blood Pressure 95/60 94/57 98/56 O2 Sat by Pulse 99 100 99 Oximetry O2 Sat by Pulse Oximetry [ Assessment] 03/21/17 03/21/17 03/21/17 13:55 14:00 14:15 Temperature Pulse Rate 84 89 84 Pulse Rate [ From Monitor] Respiratory 31 H 30 H 31 H Rate Blood Pressure 91/53 84/48 91/53 O2 Sat by Pulse 100 100 Oximetry O2 Sat by Pulse Oximetry [ Assessment] 03/21/17 03/21/17 03/21/17 14:30 14:45 15:00 Temperature Pulse Rate 85 83 86 Pulse Rate [ From Monitor] Respiratory 33 H 22 28 H Rate Blood Pressure 81/46 98/58 103/62 O2 Sat by Pulse 100 Oximetry O2 Sat by Pulse Oximetry [ Assessment] 03/21/17 03/21/17 03/21/17 15:16 15:30 15:45 Temperature Pulse Rate 105 H 102 H 98 H Pulse Rate [ From Monitor] Respiratory 26 H 23 22 Rate Blood Pressure 162/104 110/74 119/83 O2 Sat by Pulse 100 100 100 Oximetry O2 Sat by Pulse Oximetry [ Assessment] 03/21/17 03/21/17 16:00 16:15 Temperature 98.7 F Pulse Rate 97 H 95 H Pulse Rate [ 97 H From Monitor] Respiratory 20 21 Rate Blood Pressure 119/77 119/73 O2 Sat by Pulse 100 100 Oximetry O2 Sat by Pulse Oximetry [ Assessment] Constitutional: appears uncomfortable, other (not tracking) Eyes: non-icteric, other (tracheostomy tube in midline of neck) ENT: oropharynx moist, oropharyngeal exudate pre, other (midline tracheostomy tube) Neck: supple, no lymphadenopathy, no JVD, other (no thyromegaly) Effort: mildly labored Ascultation: Bilateral: clear, diminished breath sounds (bases R>L), rales, rhonchi (and referred upper airway sounds) Percussion: Right: dull (base), Bilateral: not dull Cardiovascular: regular rate and rhythm, other (no rubs / murmurs) Gastrointestinal: hypoactive bowel sounds, soft, non-tender, non-distended, other (RLQ & LUQ stomas with colostomy bags) Integumentary: decubitus ulcer (sacral; stage 4 s/p surgical debridement), other (no rash; no cellulitis; poor turgor) Extremities: no cyanosis, pulses normal, no ischemia or petechiae, edema (1+ bilaterally) Neurologic: pupils equal and round, unable to assess, other (encephalopathic) Psychiatric: other (unable to assess) CBC and BMP: 03/21/17 04:57 03/20/17 Unknown ABG, PT/INR, D-dimer: ABG POC ABG pH 7.518 (7.35-7.45) H 03/03/17 20: ABG pH 7.450 pH Units (7.350-7.450) 12/05/16 Unknown POC ABG pCO2 28.8 (35-45) L 03/03/17 20:17 ABG pCO2 29.6 mm Hg 12/05/16 Unknown POC ABG pO2 61 (80-105) L 03/03/17 20:17 ABG pO2 75.2 mm Hg (80.0-90.0) L 12/05/16 Unknown POC ABG HCO3 23.4 03/03/17 20:17 POC ABG Total CO2 24 03/03/17 20:17 POC ABG O2 Sat 94 03/03/17 20:17 ABG O2 Saturation 96.8 % (95.0-99.0) 12/05/16 Unknown PT/INR, D-dimer PT 15.4 Sec. (12.2-14.9) H 01/13/17 15:50 INR 1.16 (0.87-1.13) H 01/13/17 15:50 Abnormal lab findings: Abnormal Labs 09/03/16 09/03/16 09/03/16 00:03 00:10 00:10 WBC 13.9 H RBC 5.95 H Hgb Hct 44.0 H MCV 74 L MCH 22 L MCHC RDW 17.5 H Plt Count Lymph % (Auto) [place] % (Auto) Lymph # [place] # Baso # Seg Neutrophils % Seg Neuts % (Manual) Lymphocytes % (Manual) 54.0 H Monocytes % (Manual) Eosinophils % (Manual) Basophils % (Manual) Nucleated RBC % Seg Neutrophils # Seg Neutrophils # Man Lymphocytes # (Manual) 7.5 H Monocytes # (Manual) Eosinophils # (Manual) Basophils # (Manual) PT INR Fibrinogen dRVVT Confirm Interp Factor V Activity POC ABG pH POC ABG pCO2 POC ABG pO2 ABG pO2 ABG HCO3 ABG Base Excess ABG Hemoglobin Oxyhemoglobin Sodium Potassium 2.8 L* Chloride Carbon Dioxide 21 L BUN Creatinine 1.7 H Glucose 159 H POC Glucose 177 H Lactic Acid Calcium Ionized Calcium Phosphorus Magnesium Direct Bilirubin AST ALT Alkaline Phosphatase Lactate Dehydrogenase Troponin T C-Reactive Protein Total Protein Albumin Prealbumin Triglycerides Cholesterol LDL Cholesterol Direct HDL Cholesterol 25-OH Vitamin D Total PTH Intact Urine pH Urine WBC (Auto) Urine Creatinine Urine Total Protein Fluid Total Protein Vancomycin Trough Rheumatoid Factor Complement C4 Miscellaneous Test Crossmatch 09/03/16 09/03/16 09/03/16 12:12 15:07 16:20 WBC RBC Hgb Hct MCV MCH MCHC RDW Plt Count Lymph % (Auto) [place] % (Auto) Lymph # [place] # Baso # Seg Neutrophils % Seg Neuts % (Manual) Lymphocytes % (Manual) Monocytes % (Manual) Eosinophils % (Manual) Basophils % (Manual) Nucleated RBC % Seg Neutrophils # Seg Neutrophils # Man Lymphocytes # (Manual) Monocytes # (Manual) Eosinophils # (Manual) Basophils # (Manual) PT INR Fibrinogen dRVVT Confirm Interp Factor V Activity POC ABG pH 7.452 H POC ABG pCO2 POC ABG pO2 ABG pO2 ABG HCO3 ABG Base Excess ABG Hemoglobin Oxyhemoglobin Sodium Potassium Chloride Carbon Dioxide BUN Creatinine Glucose POC Glucose 178 H Lactic Acid Calcium Ionized Calcium Phosphorus 2.20 L Magnesium 1.60 L Direct Bilirubin AST ALT Alkaline Phosphatase Lactate Dehydrogenase Troponin T C-Reactive Protein Total Protein Albumin Prealbumin Triglycerides Cholesterol LDL Cholesterol Direct HDL Cholesterol 25-OH Vitamin D Total PTH Intact Urine pH Urine WBC (Auto) Urine Creatinine Urine Total Protein Fluid Total Protein Vancomycin Trough Rheumatoid Factor Complement C4 Miscellaneous Test Crossmatch 09/03/16 09/03/16 09/03/16 17:57 17:58 23:50 WBC RBC Hgb Hct MCV MCH MCHC RDW Plt Count Lymph % (Auto) [place] % (Auto) Lymph # [place] # Baso # Seg Neutrophils % Seg Neuts % (Manual) Lymphocytes % (Manual) Monocytes % (Manual) Eosinophils % (Manual) Basophils % (Manual) Nucleated RBC % Seg Neutrophils # Seg Neutrophils # Man Lymphocytes # (Manual) Monocytes # (Manual) Eosinophils # (Manual) Basophils # (Manual) PT INR Fibrinogen dRVVT Confirm Interp Factor V Activity POC ABG pH POC ABG pCO2 POC ABG pO2 ABG pO2 ABG HCO3 ABG Base Excess ABG Hemoglobin Oxyhemoglobin Sodium Potassium Chloride Carbon Dioxide BUN Creatinine Glucose POC Glucose 162 H 145 H Lactic Acid Calcium Ionized Calcium Phosphorus 2.30 L Magnesium Direct Bilirubin AST ALT Alkaline Phosphatase Lactate Dehydrogenase Troponin T C-Reactive Protein Total Protein Albumin Prealbumin Triglycerides Cholesterol LDL Cholesterol Direct HDL Cholesterol 25-OH Vitamin D Total PTH Intact Urine pH Urine WBC (Auto) Urine Creatinine Urine Total Protein Fluid Total Protein Vancomycin Trough Rheumatoid Factor Complement C4 Miscellaneous Test Crossmatch 09/04/16 09/04/16 09/04/16 03:31 03:31 05:42 WBC RBC Hgb 9.7 L D Hct MCV 72 L MCH 23 L MCHC RDW 17.5 H Plt Count Lymph % (Auto) 11.1 L [place] % (Auto) Lymph # [place] # Baso # Seg Neutrophils % 84.3 H Seg Neuts % (Manual) Lymphocytes % (Manual) Monocytes % (Manual) Eosinophils % (Manual) Basophils % (Manual) Nucleated RBC % Seg Neutrophils # 8.9 H Seg Neutrophils # Man Lymphocytes # (Manual) Monocytes # (Manual) Eosinophils # (Manual) Basophils # (Manual) PT INR Fibrinogen dRVVT Confirm Interp Factor V Activity POC ABG pH POC ABG pCO2 POC ABG pO2 ABG pO2 ABG HCO3 ABG Base Excess ABG Hemoglobin Oxyhemoglobin Sodium 135 L Potassium 2.9 L* Chloride 97.2 L Carbon Dioxide 19 L BUN Creatinine 1.7 H Glucose 170 H POC Glucose 152 H Lactic Acid Calcium Ionized Calcium Phosphorus Magnesium Direct Bilirubin AST ALT Alkaline Phosphatase Lactate Dehydrogenase Troponin T C-Reactive Protein Total Protein Albumin Prealbumin Triglycerides 160 H Cholesterol LDL Cholesterol Direct HDL Cholesterol 31 L 25-OH Vitamin D Total PTH Intact Urine pH Urine WBC (Auto) Urine Creatinine Urine Total Protein Fluid Total Protein Vancomycin Trough Rheumatoid Factor Complement C4 Miscellaneous Test Crossmatch 09/04/16 09/04/16 09/04/16 11:34 17:46 23:29 WBC RBC Hgb Hct MCV MCH MCHC RDW Plt Count Lymph % (Auto) [place] % (Auto) Lymph # [place] # Baso # Seg Neutrophils % Seg Neuts % (Manual) Lymphocytes % (Manual) Monocytes % (Manual) Eosinophils % (Manual) Basophils % (Manual) Nucleated RBC % Seg Neutrophils # Seg Neutrophils # Man Lymphocytes # (Manual) Monocytes # (Manual) Eosinophils # (Manual) Basophils # (Manual) PT INR Fibrinogen dRVVT Confirm Interp Factor V Activity POC ABG pH POC ABG pCO2 POC ABG pO2 ABG pO2 ABG HCO3 ABG Base Excess ABG Hemoglobin Oxyhemoglobin Sodium Potassium Chloride Carbon Dioxide BUN Creatinine Glucose POC Glucose 165 H 210 H 139 H Lactic Acid Calcium Ionized Calcium Phosphorus Magnesium Direct Bilirubin AST ALT Alkaline Phosphatase Lactate Dehydrogenase Troponin T C-Reactive Protein Total Protein Albumin Prealbumin Triglycerides Cholesterol LDL Cholesterol Direct HDL Cholesterol 25-OH Vitamin D Total PTH Intact Urine pH Urine WBC (Auto) Urine Creatinine Urine Total Protein Fluid Total Protein Vancomycin Trough Rheumatoid Factor Complement C4 Miscellaneous Test Crossmatch 09/05/16 09/05/16 09/05/16 04:05 04:05 05:38 WBC RBC Hgb Hct MCV 76 L D MCH 23 L MCHC RDW 17.8 H Plt Count Lymph % (Auto) [place] % (Auto) Lymph # [place] # Baso # Seg Neutrophils % Seg Neuts % (Manual) Lymphocytes % (Manual) Monocytes % (Manual) Eosinophils % (Manual) Basophils % (Manual) Nucleated RBC % Seg Neutrophils # Seg Neutrophils # Man Lymphocytes # (Manual) Monocytes # (Manual) Eosinophils # (Manual) Basophils # (Manual) PT INR Fibrinogen dRVVT Confirm Interp Factor V Activity POC ABG pH POC ABG pCO2 POC ABG pO2 ABG pO2 ABG HCO3 ABG Base Excess ABG Hemoglobin Oxyhemoglobin Sodium 134 L Potassium Chloride Carbon Dioxide 18 L BUN Creatinine 1.8 H Glucose 192 H POC Glucose 175 H Lactic Acid Calcium Ionized Calcium Phosphorus Magnesium Direct Bilirubin AST ALT Alkaline Phosphatase Lactate Dehydrogenase Troponin T C-Reactive Protein Total Protein Albumin Prealbumin Triglycerides Cholesterol LDL Cholesterol Direct HDL Cholesterol 25-OH Vitamin D Total PTH Intact Urine pH Urine WBC (Auto) Urine Creatinine Urine Total Protein Fluid Total Protein Vancomycin Trough Rheumatoid Factor Complement C4 Miscellaneous Test Crossmatch 09/05/16 09/05/16 09/05/16 11:38 17:48 23:22 WBC RBC Hgb Hct MCV MCH MCHC RDW Plt Count Lymph % (Auto) [place] % (Auto) Lymph # [place] # Baso # Seg Neutrophils % Seg Neuts % (Manual) Lymphocytes % (Manual) Monocytes % (Manual) Eosinophils % (Manual) Basophils % (Manual) Nucleated RBC % Seg Neutrophils # Seg Neutrophils # Man Lymphocytes # (Manual) Monocytes # (Manual) Eosinophils # (Manual) Basophils # (Manual) PT INR Fibrinogen dRVVT Confirm Interp Factor V Activity POC ABG pH POC ABG pCO2 POC ABG pO2 ABG pO2 ABG HCO3 ABG Base Excess ABG Hemoglobin Oxyhemoglobin Sodium Potassium Chloride Carbon Dioxide BUN Creatinine Glucose POC Glucose 164 H 186 H 195 H Lactic Acid Calcium Ionized Calcium Phosphorus Magnesium Direct Bilirubin AST ALT Alkaline Phosphatase Lactate Dehydrogenase Troponin T C-Reactive Protein Total Protein Albumin Prealbumin Triglycerides Cholesterol LDL Cholesterol Direct HDL Cholesterol 25-OH Vitamin D Total PTH Intact Urine pH Urine WBC (Auto) Urine Creatinine Urine Total Protein Fluid Total Protein Vancomycin Trough Rheumatoid Factor Complement C4 Miscellaneous Test Crossmatch 09/06/16 09/06/16 09/06/16 04:12 05:59 07:32 WBC RBC Hgb Hct MCV MCH MCHC RDW Plt Count Lymph % (Auto) [place] % (Auto) Lymph # [place] # Baso # Seg Neutrophils % Seg Neuts % (Manual) Lymphocytes % (Manual) Monocytes % (Manual) Eosinophils % (Manual) Basophils % (Manual) Nucleated RBC % Seg Neutrophils # Seg Neutrophils # Man Lymphocytes # (Manual) Monocytes # (Manual) Eosinophils # (Manual) Basophils # (Manual) PT INR Fibrinogen dRVVT Confirm Interp Factor V Activity POC ABG pH 7.514 H POC ABG pCO2 29.1 L POC ABG pO2 72 L ABG pO2 ABG HCO3 ABG Base Excess ABG Hemoglobin Oxyhemoglobin Sodium 133 L Potassium 3.4 L Chloride 94.9 L Carbon Dioxide 19 L BUN 30 H Creatinine 2.1 H Glucose 139 H POC Glucose 146 H Lactic Acid Calcium Ionized Calcium Phosphorus Magnesium Direct Bilirubin AST ALT Alkaline Phosphatase Lactate Dehydrogenase Troponin T C-Reactive Protein Total Protein Albumin Prealbumin Triglycerides Cholesterol LDL Cholesterol Direct HDL Cholesterol 25-OH Vitamin D Total PTH Intact Urine pH Urine WBC (Auto) Urine Creatinine Urine Total Protein Fluid Total Protein Vancomycin Trough Rheumatoid Factor Complement C4 Miscellaneous Test Crossmatch 09/06/16 09/06/16 09/06/16 11:57 17:58 19:02 WBC RBC Hgb Hct MCV MCH MCHC RDW Plt Count Lymph % (Auto) [place] % (Auto) Lymph # [place] # Baso # Seg Neutrophils % Seg Neuts % (Manual) Lymphocytes % (Manual) Monocytes % (Manual) Eosinophils % (Manual) Basophils % (Manual) Nucleated RBC % Seg Neutrophils # Seg Neutrophils # Man Lymphocytes # (Manual) Monocytes # (Manual) Eosinophils # (Manual) Basophils # (Manual) PT INR Fibrinogen dRVVT Confirm Interp Factor V Activity POC ABG pH 7.465 H POC ABG pCO2 32.0 L POC ABG pO2 ABG pO2 ABG HCO3 ABG Base Excess ABG Hemoglobin Oxyhemoglobin Sodium Potassium Chloride Carbon Dioxide BUN Creatinine Glucose POC Glucose 165 H 160 H Lactic Acid Calcium Ionized Calcium Phosphorus Magnesium Direct Bilirubin AST ALT Alkaline Phosphatase Lactate Dehydrogenase Troponin T C-Reactive Protein Total Protein Albumin Prealbumin Triglycerides Cholesterol LDL Cholesterol Direct HDL Cholesterol 25-OH Vitamin D Total PTH Intact Urine pH Urine WBC (Auto) Urine Creatinine Urine Total Protein Fluid Total Protein Vancomycin Trough Rheumatoid Factor Complement C4 Miscellaneous Test Crossmatch 09/06/16 09/07/16 09/07/16 23:45 02:47 02:47 WBC RBC Hgb Hct MCV MCH MCHC RDW Plt Count Lymph % (Auto) [place] % (Auto) Lymph # [place] # Baso # Seg Neutrophils % Seg Neuts % (Manual) Lymphocytes % (Manual) Monocytes % (Manual) Eosinophils % (Manual) Basophils % (Manual) Nucleated RBC % Seg Neutrophils # Seg Neutrophils # Man Lymphocytes # (Manual) Monocytes # (Manual) Eosinophils # (Manual) Basophils # (Manual) PT INR Fibrinogen dRVVT Confirm Interp Factor V Activity POC ABG pH POC ABG pCO2 POC ABG pO2 ABG pO2 ABG HCO3 ABG Base Excess ABG Hemoglobin Oxyhemoglobin Sodium Potassium Chloride Carbon Dioxide BUN Creatinine Glucose POC Glucose 204 H Lactic Acid Calcium Ionized Calcium Phosphorus Magnesium Direct Bilirubin AST ALT Alkaline Phosphatase Lactate Dehydrogenase Troponin T C-Reactive Protein Total Protein Albumin Prealbumin Triglycerides Cholesterol LDL Cholesterol Direct HDL Cholesterol 25-OH Vitamin D Total PTH Intact Urine pH Urine WBC (Auto) 68.0 H Urine Creatinine 106.1 H Urine Total Protein Fluid Total Protein Vancomycin Trough Rheumatoid Factor Complement C4 Miscellaneous Test Crossmatch 09/07/16 09/07/16 09/07/16 04:50 06:19 06:39 WBC RBC Hgb Hct MCV MCH MCHC RDW Plt Count Lymph % (Auto) [place] % (Auto) Lymph # [place] # Baso # Seg Neutrophils % Seg Neuts % (Manual) Lymphocytes % (Manual) Monocytes % (Manual) Eosinophils % (Manual) Basophils % (Manual) Nucleated RBC % Seg Neutrophils # Seg Neutrophils # Man Lymphocytes # (Manual) Monocytes # (Manual) Eosinophils # (Manual) Basophils # (Manual) PT INR Fibrinogen dRVVT Confirm Interp Factor V Activity POC ABG pH 7.457 H POC ABG pCO2 32.1 L POC ABG pO2 76 L ABG pO2 ABG HCO3 ABG Base Excess ABG Hemoglobin Oxyhemoglobin Sodium 132 L Potassium Chloride 94.7 L Carbon Dioxide BUN 53 H Creatinine 2.9 H Glucose 151 H POC Glucose 149 H Lactic Acid Calcium Ionized Calcium Phosphorus Magnesium Direct Bilirubin AST ALT Alkaline Phosphatase Lactate Dehydrogenase Troponin T C-Reactive Protein Total Protein Albumin Prealbumin Triglycerides Cholesterol LDL Cholesterol Direct HDL Cholesterol 25-OH Vitamin D Total PTH Intact Urine pH Urine WBC (Auto) Urine Creatinine Urine Total Protein Fluid Total Protein Vancomycin Trough Rheumatoid Factor Complement C4 Miscellaneous Test Crossmatch 09/07/16 09/07/16 09/07/16 09:20 11:43 11:43 WBC 19.4 H RBC Hgb 8.3 L Hct 26.4 L D MCV 72 L D MCH 22 L MCHC RDW 17.9 H Plt Count Lymph % (Auto) 8.5 L [place] % (Auto) Lymph # [place] # 1.0 H Baso # Seg Neutrophils % 85.8 H Seg Neuts % (Manual) Lymphocytes % (Manual) Monocytes % (Manual) Eosinophils % (Manual) Basophils % (Manual) Nucleated RBC % Seg Neutrophils # 16.6 H Seg Neutrophils # Man Lymphocytes # (Manual) Monocytes # (Manual) Eosinophils # (Manual) Basophils # (Manual) PT INR Fibrinogen dRVVT Confirm Interp Factor V Activity POC ABG pH POC ABG pCO2 POC ABG pO2 ABG pO2 ABG HCO3 ABG Base Excess ABG Hemoglobin Oxyhemoglobin Sodium 134 L Potassium Chloride 97.2 L Carbon Dioxide 20 L BUN 58 H Creatinine 2.9 H Glucose 147 H POC Glucose Lactic Acid Calcium Ionized Calcium Phosphorus 2.40 L Magnesium 2.40 H Direct Bilirubin AST ALT Alkaline Phosphatase Lactate Dehydrogenase Troponin T C-Reactive Protein Total Protein 5.8 L Albumin 2.2 L Prealbumin Triglycerides Cholesterol LDL Cholesterol Direct HDL Cholesterol 25-OH Vitamin D Total PTH Intact Urine pH Urine WBC (Auto) Urine Creatinine Urine Total Protein Fluid Total Protein Vancomycin Trough Rheumatoid Factor Complement C4 58 H Miscellaneous Test Crossmatch 09/07/16 09/07/16 09/07/16 11:50 16:00 17:31 WBC RBC Hgb Hct MCV MCH MCHC RDW Plt Count Lymph % (Auto) [place] % (Auto) Lymph # [place] # Baso # Seg Neutrophils % Seg Neuts % (Manual) Lymphocytes % (Manual) Monocytes % (Manual) Eosinophils % (Manual) Basophils % (Manual) Nucleated RBC % Seg Neutrophils # Seg Neutrophils # Man Lymphocytes # (Manual) Monocytes # (Manual) Eosinophils # (Manual) Basophils # (Manual) PT INR Fibrinogen dRVVT Confirm Interp Factor V Activity POC ABG pH POC ABG pCO2 POC ABG pO2 158 H ABG pO2 ABG HCO3 ABG Base Excess ABG Hemoglobin Oxyhemoglobin Sodium Potassium Chloride Carbon Dioxide BUN Creatinine Glucose POC Glucose 175 H Lactic Acid Calcium Ionized Calcium Phosphorus Magnesium Direct Bilirubin AST ALT Alkaline Phosphatase Lactate Dehydrogenase Troponin T C-Reactive Protein Total Protein Albumin Prealbumin Triglycerides Cholesterol LDL Cholesterol Direct HDL Cholesterol 25-OH Vitamin D Total PTH Intact Urine pH Urine WBC (Auto) Urine Creatinine 66.3 H Urine Total Protein Fluid Total Protein Vancomycin Trough Rheumatoid Factor Complement C4 Miscellaneous Test Crossmatch 09/07/16 09/08/16 09/08/16 23:50 05:46 06:18 WBC 17.8 H RBC 3.58 L Hgb 8.1 L Hct 25.5 L MCV 71 L MCH 23 L MCHC RDW 18.4 H Plt Count Lymph % (Auto) [place] % (Auto) Lymph # [place] # Baso # Seg Neutrophils % Seg Neuts % (Manual) 92.0 H Lymphocytes % (Manual) 6.0 L Monocytes % (Manual) Eosinophils % (Manual) Basophils % (Manual) Nucleated RBC % Seg Neutrophils # Seg Neutrophils # Man 16.4 H Lymphocytes # (Manual) 1.1 L Monocytes # (Manual) Eosinophils # (Manual) Basophils # (Manual) PT INR Fibrinogen dRVVT Confirm Interp Factor V Activity POC ABG pH POC ABG pCO2 34.3 L POC ABG pO2 71 L ABG pO2 ABG HCO3 ABG Base Excess ABG Hemoglobin Oxyhemoglobin Sodium Potassium Chloride Carbon Dioxide BUN Creatinine Glucose POC Glucose 216 H Lactic Acid Calcium Ionized Calcium Phosphorus Magnesium Direct Bilirubin AST ALT Alkaline Phosphatase Lactate Dehydrogenase Troponin T C-Reactive Protein Total Protein Albumin Prealbumin Triglycerides Cholesterol LDL Cholesterol Direct HDL Cholesterol 25-OH Vitamin D Total PTH Intact Urine pH Urine WBC (Auto) Urine Creatinine Urine Total Protein Fluid Total Protein Vancomycin Trough Rheumatoid Factor Complement C4 Miscellaneous Test Crossmatch 09/08/16 09/08/16 09/08/16 06:18 06:51 10:55 WBC RBC Hgb Hct MCV MCH MCHC RDW Plt Count Lymph % (Auto) [place] % (Auto) Lymph # [place] # Baso # Seg Neutrophils % Seg Neuts % (Manual) Lymphocytes % (Manual) Monocytes % (Manual) Eosinophils % (Manual) Basophils % (Manual) Nucleated RBC % Seg Neutrophils # Seg Neutrophils # Man Lymphocytes # (Manual) Monocytes # (Manual) Eosinophils # (Manual) Basophils # (Manual) PT INR Fibrinogen dRVVT Confirm Interp Factor V Activity POC ABG pH POC ABG pCO2 POC ABG pO2 ABG pO2 ABG HCO3 ABG Base Excess ABG Hemoglobin Oxyhemoglobin Sodium 133 L Potassium Chloride 96.9 L Carbon Dioxide 20 L BUN 63 H Creatinine 2.7 H Glucose 195 H POC Glucose 204 H 169 H Lactic Acid Calcium Ionized Calcium Phosphorus Magnesium Direct Bilirubin AST ALT Alkaline Phosphatase Lactate Dehydrogenase Troponin T C-Reactive Protein Total Protein Albumin Prealbumin Triglycerides Cholesterol LDL Cholesterol Direct HDL Cholesterol 25-OH Vitamin D Total PTH Intact Urine pH Urine WBC (Auto) Urine Creatinine Urine Total Protein Fluid Total Protein Vancomycin Trough Rheumatoid Factor Complement C4 Miscellaneous Test Crossmatch 09/08/16 09/08/16 09/08/16 11:48 11:48 11:48 WBC RBC Hgb Hct MCV MCH MCHC RDW Plt Count Lymph % (Auto) [place] % (Auto) Lymph # [place] # Baso # Seg Neutrophils % Seg Neuts % (Manual) Lymphocytes % (Manual) Monocytes % (Manual) Eosinophils % (Manual) Basophils % (Manual) Nucleated RBC % Seg Neutrophils # Seg Neutrophils # Man Lymphocytes # (Manual) Monocytes # (Manual) Eosinophils # (Manual) Basophils # (Manual) PT INR Fibrinogen 750 H dRVVT Confirm Interp Factor V Activity POC ABG pH POC ABG pCO2 POC ABG pO2 ABG pO2 ABG HCO3 ABG Base Excess ABG Hemoglobin Oxyhemoglobin Sodium Potassium Chloride Carbon Dioxide BUN Creatinine Glucose POC Glucose Lactic Acid Calcium Ionized Calcium Phosphorus Magnesium Direct Bilirubin AST ALT Alkaline Phosphatase Lactate Dehydrogenase Troponin T C-Reactive Protein 15.70 H Total Protein Albumin Prealbumin Triglycerides Cholesterol LDL Cholesterol Direct HDL Cholesterol 25-OH Vitamin D Total PTH Intact Urine pH Urine WBC (Auto) Urine Creatinine Urine Total Protein Fluid Total Protein Vancomycin Trough Rheumatoid Factor 24 H Complement C4 Miscellaneous Test Crossmatch 09/08/16 09/08/16 09/09/16 15:35 18:25 00:24 WBC RBC Hgb Hct MCV MCH MCHC RDW Plt Count Lymph % (Auto) [place] % (Auto) Lymph # [place] # Baso # Seg Neutrophils % Seg Neuts % (Manual) Lymphocytes % (Manual) Monocytes % (Manual) Eosinophils % (Manual) Basophils % (Manual) Nucleated RBC % Seg Neutrophils # Seg Neutrophils # Man Lymphocytes # (Manual) Monocytes # (Manual) Eosinophils # (Manual) Basophils # (Manual) PT INR Fibrinogen dRVVT Confirm Interp Factor V Activity 182 H POC ABG pH POC ABG pCO2 POC ABG pO2 ABG pO2 ABG HCO3 ABG Base Excess ABG Hemoglobin Oxyhemoglobin Sodium Potassium Chloride Carbon Dioxide BUN Creatinine Glucose POC Glucose 184 H 216 H Lactic Acid Calcium Ionized Calcium Phosphorus Magnesium Direct Bilirubin AST ALT Alkaline Phosphatase Lactate Dehydrogenase Troponin T C-Reactive Protein Total Protein Albumin Prealbumin Triglycerides Cholesterol LDL Cholesterol Direct HDL Cholesterol 25-OH Vitamin D Total PTH Intact Urine pH Urine WBC (Auto) Urine Creatinine Urine Total Protein Fluid Total Protein Vancomycin Trough Rheumatoid Factor Complement C4 Miscellaneous Test Crossmatch 09/09/16 09/09/16 09/09/16 03:00 03:00 04:04 WBC 27.9 H RBC Hgb 8.7 L Hct 28.1 L MCV 72 L MCH 22 L MCHC RDW 18.4 H Plt Count 485 H Lymph % (Auto) [place] % (Auto) Lymph # [place] # Baso # Seg Neutrophils % Seg Neuts % (Manual) 77.0 H Lymphocytes % (Manual) 9.0 L Monocytes % (Manual) Eosinophils % (Manual) Basophils % (Manual) Nucleated RBC % Seg Neutrophils # Seg Neutrophils # Man 21.5 H Lymphocytes # (Manual) Monocytes # (Manual) 2.0 H Eosinophils # (Manual) Basophils # (Manual) PT INR Fibrinogen dRVVT Confirm Interp Factor V Activity POC ABG pH POC ABG pCO2 POC ABG pO2 121 H ABG pO2 ABG HCO3 ABG Base Excess ABG Hemoglobin Oxyhemoglobin Sodium 135 L Potassium Chloride 96.3 L Carbon Dioxide 21 L BUN 83 H Creatinine 3.0 H Glucose 135 H POC Glucose Lactic Acid Calcium Ionized Calcium Phosphorus Magnesium Direct Bilirubin AST ALT Alkaline Phosphatase Lactate Dehydrogenase Troponin T C-Reactive Protein Total Protein Albumin Prealbumin Triglycerides Cholesterol LDL Cholesterol Direct HDL Cholesterol 25-OH Vitamin D Total PTH Intact Urine pH Urine WBC (Auto) Urine Creatinine Urine Total Protein Fluid Total Protein Vancomycin Trough Rheumatoid Factor Complement C4 Miscellaneous Test Crossmatch 09/09/16 09/09/16 09/09/16 05:41 11:55 14:13 WBC RBC Hgb Hct MCV MCH MCHC RDW Plt Count Lymph % (Auto) [place] % (Auto) Lymph # [place] # Baso # Seg Neutrophils % Seg Neuts % (Manual) Lymphocytes % (Manual) Monocytes % (Manual) Eosinophils % (Manual) Basophils % (Manual) Nucleated RBC % Seg Neutrophils # Seg Neutrophils # Man Lymphocytes # (Manual) Monocytes # (Manual) Eosinophils # (Manual) Basophils # (Manual) PT INR Fibrinogen dRVVT Confirm Interp Factor V Activity POC ABG pH POC ABG pCO2 POC ABG pO2 ABG pO2 ABG HCO3 ABG Base Excess ABG Hemoglobin Oxyhemoglobin Sodium Potassium Chloride Carbon Dioxide BUN Creatinine Glucose POC Glucose 155 H 186 H Lactic Acid Calcium Ionized Calcium Phosphorus Magnesium Direct Bilirubin AST ALT Alkaline Phosphatase Lactate Dehydrogenase Troponin T C-Reactive Protein Total Protein Albumin Prealbumin Triglycerides Cholesterol LDL Cholesterol Direct HDL Cholesterol 25-OH Vitamin D Total PTH Intact Urine pH Urine WBC (Auto) 25.0 H Urine Creatinine Urine Total Protein Fluid Total Protein Vancomycin Trough Rheumatoid Factor Complement C4 Miscellaneous Test Crossmatch 09/09/16 09/09/16 09/10/16 17:33 23:13 05:09 WBC RBC Hgb Hct MCV MCH MCHC RDW Plt Count Lymph % (Auto) [place] % (Auto) Lymph # [place] # Baso # Seg Neutrophils % Seg Neuts % (Manual) Lymphocytes % (Manual) Monocytes % (Manual) Eosinophils % (Manual) Basophils % (Manual) Nucleated RBC % Seg Neutrophils # Seg Neutrophils # Man Lymphocytes # (Manual) Monocytes # (Manual) Eosinophils # (Manual) Basophils # (Manual) PT INR Fibrinogen dRVVT Confirm Interp Factor V Activity POC ABG pH POC ABG pCO2 POC ABG pO2 74 L ABG pO2 ABG HCO3 ABG Base Excess ABG Hemoglobin Oxyhemoglobin Sodium Potassium Chloride Carbon Dioxide BUN Creatinine Glucose POC Glucose 211 H 215 H Lactic Acid Calcium Ionized Calcium Phosphorus Magnesium Direct Bilirubin AST ALT Alkaline Phosphatase Lactate Dehydrogenase Troponin T C-Reactive Protein Total Protein Albumin Prealbumin Triglycerides Cholesterol LDL Cholesterol Direct HDL Cholesterol 25-OH Vitamin D Total PTH Intact Urine pH Urine WBC (Auto) Urine Creatinine Urine Total Protein Fluid Total Protein Vancomycin Trough Rheumatoid Factor Complement C4 Miscellaneous Test Crossmatch 09/10/16 09/10/16 09/10/16 05:17 05:17 11:31 WBC 15.8 H RBC 3.25 L Hgb 7.3 L Hct 22.9 L MCV 71 L MCH 23 L MCHC RDW 18.4 H Plt Count Lymph % (Auto) [place] % (Auto) Lymph # [place] # Baso # Seg Neutrophils % Seg Neuts % (Manual) 91.0 H Lymphocytes % (Manual) 4.0 L Monocytes % (Manual) Eosinophils % (Manual) Basophils % (Manual) Nucleated RBC % Seg Neutrophils # Seg Neutrophils # Man 14.4 H Lymphocytes # (Manual) 0.6 L Monocytes # (Manual) Eosinophils # (Manual) Basophils # (Manual) PT INR Fibrinogen dRVVT Confirm Interp Factor V Activity POC ABG pH POC ABG pCO2 POC ABG pO2 ABG pO2 ABG HCO3 ABG Base Excess ABG Hemoglobin Oxyhemoglobin Sodium Potassium Chloride Carbon Dioxide 21 L BUN 93 H Creatinine 2.9 H Glucose 146 H POC Glucose 188 H Lactic Acid Calcium 8.1 L Ionized Calcium Phosphorus Magnesium Direct Bilirubin AST ALT Alkaline Phosphatase Lactate Dehydrogenase Troponin T C-Reactive Protein Total Protein Albumin Prealbumin Triglycerides Cholesterol LDL Cholesterol Direct HDL Cholesterol 25-OH Vitamin D Total PTH Intact Urine pH Urine WBC (Auto) Urine Creatinine Urine Total Protein Fluid Total Protein Vancomycin Trough Rheumatoid Factor Complement C4 Miscellaneous Test Crossmatch 09/10/16 09/10/16 09/10/16 13:17 17:20 23:32 WBC RBC Hgb Hct MCV MCH MCHC RDW Plt Count Lymph % (Auto) [place] % (Auto) Lymph # [place] # Baso # Seg Neutrophils % Seg Neuts % (Manual) Lymphocytes % (Manual) Monocytes % (Manual) Eosinophils % (Manual) Basophils % (Manual) Nucleated RBC % Seg Neutrophils # Seg Neutrophils # Man Lymphocytes # (Manual) Monocytes # (Manual) Eosinophils # (Manual) Basophils # (Manual) PT INR Fibrinogen dRVVT Confirm Interp Factor V Activity POC ABG pH POC ABG pCO2 POC ABG pO2 ABG pO2 ABG HCO3 ABG Base Excess ABG Hemoglobin Oxyhemoglobin Sodium Potassium Chloride Carbon Dioxide BUN Creatinine Glucose POC Glucose 199 H 186 H Lactic Acid Calcium Ionized Calcium Phosphorus Magnesium Direct Bilirubin AST ALT Alkaline Phosphatase Lactate Dehydrogenase Troponin T C-Reactive Protein Total Protein Albumin Prealbumin Triglycerides Cholesterol LDL Cholesterol Direct HDL Cholesterol 25-OH Vitamin D Total PTH Intact Urine pH Urine WBC (Auto) Urine Creatinine Urine Total Protein Fluid Total Protein Vancomycin Trough Rheumatoid Factor Complement C4 Miscellaneous Test Crossmatch See Detail 09/11/16 09/11/16 09/11/16 05:10 05:10 05:17 WBC 28.4 H RBC Hgb 9.2 L Hct 29.3 L D MCV 73 L MCH 23 L MCHC RDW 18.9 H Plt Count 452 H Lymph % (Auto) [place] % (Auto) Lymph # [place] # Baso # Seg Neutrophils % Seg Neuts % (Manual) 89.5 H Lymphocytes % (Manual) 2.0 L Monocytes % (Manual) Eosinophils % (Manual) Basophils % (Manual) Nucleated RBC % Seg Neutrophils # Seg Neutrophils # Man 25.4 H Lymphocytes # (Manual) 0.6 L Monocytes # (Manual) 1.3 H Eosinophils # (Manual) Basophils # (Manual) PT INR Fibrinogen dRVVT Confirm Interp Factor V Activity POC ABG pH POC ABG pCO2 POC ABG pO2 ABG pO2 ABG HCO3 ABG Base Excess ABG Hemoglobin Oxyhemoglobin Sodium 136 L Potassium Chloride Carbon Dioxide 18 L BUN 107 H Creatinine 2.6 H Glucose 187 H POC Glucose 230 H Lactic Acid Calcium 8.3 L Ionized Calcium Phosphorus Magnesium Direct Bilirubin AST ALT Alkaline Phosphatase Lactate Dehydrogenase Troponin T C-Reactive Protein Total Protein Albumin Prealbumin Triglycerides Cholesterol LDL Cholesterol Direct HDL Cholesterol 25-OH Vitamin D Total PTH Intact Urine pH Urine WBC (Auto) Urine Creatinine Urine Total Protein Fluid Total Protein Vancomycin Trough Rheumatoid Factor Complement C4 Miscellaneous Test Crossmatch 09/11/16 09/11/16 09/11/16 05:55 12:02 17:32 WBC RBC Hgb Hct MCV MCH MCHC RDW Plt Count Lymph % (Auto) [place] % (Auto) Lymph # [place] # Baso # Seg Neutrophils % Seg Neuts % (Manual) Lymphocytes % (Manual) Monocytes % (Manual) Eosinophils % (Manual) Basophils % (Manual) Nucleated RBC % Seg Neutrophils # Seg Neutrophils # Man Lymphocytes # (Manual) Monocytes # (Manual) Eosinophils # (Manual) Basophils # (Manual) PT INR Fibrinogen dRVVT Confirm Interp Factor V Activity POC ABG pH POC ABG pCO2 33.8 L POC ABG pO2 ABG pO2 ABG HCO3 ABG Base Excess ABG Hemoglobin Oxyhemoglobin Sodium Potassium Chloride Carbon Dioxide BUN Creatinine Glucose POC Glucose 191 H 239 H Lactic Acid Calcium Ionized Calcium Phosphorus Magnesium Direct Bilirubin AST ALT Alkaline Phosphatase Lactate Dehydrogenase Troponin T C-Reactive Protein Total Protein Albumin Prealbumin Triglycerides Cholesterol LDL Cholesterol Direct HDL Cholesterol 25-OH Vitamin D Total PTH Intact Urine pH Urine WBC (Auto) Urine Creatinine Urine Total Protein Fluid Total Protein Vancomycin Trough Rheumatoid Factor Complement C4 Miscellaneous Test Crossmatch 09/11/16 09/12/16 09/12/16 23:52 05:09 05:32 WBC RBC Hgb Hct MCV MCH MCHC RDW Plt Count Lymph % (Auto) [place] % (Auto) Lymph # [place] # Baso # Seg Neutrophils % Seg Neuts % (Manual) Lymphocytes % (Manual) Monocytes % (Manual) Eosinophils % (Manual) Basophils % (Manual) Nucleated RBC % Seg Neutrophils # Seg Neutrophils # Man Lymphocytes # (Manual) Monocytes # (Manual) Eosinophils # (Manual) Basophils # (Manual) PT INR Fibrinogen dRVVT Confirm Interp Factor V Activity POC ABG pH POC ABG pCO2 34.6 L POC ABG pO2 ABG pO2 ABG HCO3 ABG Base Excess ABG Hemoglobin Oxyhemoglobin Sodium Potassium Chloride Carbon Dioxide BUN Creatinine Glucose POC Glucose 265 H 184 H Lactic Acid Calcium Ionized Calcium Phosphorus Magnesium Direct Bilirubin AST ALT Alkaline Phosphatase Lactate Dehydrogenase Troponin T C-Reactive Protein Total Protein Albumin Prealbumin Triglycerides Cholesterol LDL Cholesterol Direct HDL Cholesterol 25-OH Vitamin D Total PTH Intact Urine pH Urine WBC (Auto) Urine Creatinine Urine Total Protein Fluid Total Protein Vancomycin Trough Rheumatoid Factor Complement C4 Miscellaneous Test Crossmatch 09/12/16 09/12/16 09/12/16 06:45 06:45 07:22 WBC 31.7 H RBC 3.54 L Hgb 8.3 L Hct 25.9 L MCV 73 L MCH 23 L MCHC RDW 18.9 H Plt Count Lymph % (Auto) [place] % (Auto) Lymph # [place] # Baso # Seg Neutrophils % Seg Neuts % (Manual) 88.5 H Lymphocytes % (Manual) 4.5 L Monocytes % (Manual) Eosinophils % (Manual) Basophils % (Manual) Nucleated RBC % Seg Neutrophils # Seg Neutrophils # Man 28.1 H Lymphocytes # (Manual) Monocytes # (Manual) 1.0 H Eosinophils # (Manual) Basophils # (Manual) PT INR Fibrinogen dRVVT Confirm Interp Factor V Activity POC ABG pH POC ABG pCO2 POC ABG pO2 ABG pO2 ABG HCO3 ABG Base Excess ABG Hemoglobin Oxyhemoglobin Sodium Potassium Chloride Carbon Dioxide 20 L BUN 115 H Creatinine 2.7 H Glucose 165 H POC Glucose Lactic Acid Calcium 8.0 L Ionized Calcium Phosphorus Magnesium Direct Bilirubin AST ALT Alkaline Phosphatase Lactate Dehydrogenase Troponin T C-Reactive Protein Total Protein Albumin Prealbumin Triglycerides 217 H Cholesterol LDL Cholesterol Direct HDL Cholesterol 25-OH Vitamin D Total PTH Intact Urine pH Urine WBC (Auto) Urine Creatinine Urine Total Protein Fluid Total Protein Vancomycin Trough Rheumatoid Factor Complement C4 Miscellaneous Test Crossmatch 09/12/16 09/12/16 09/12/16 07:22 09:59 12:21 WBC RBC Hgb Hct MCV MCH MCHC RDW Plt Count Lymph % (Auto) [place] % (Auto) Lymph # [place] # Baso # Seg Neutrophils % Seg Neuts % (Manual) Lymphocytes % (Manual) Monocytes % (Manual) Eosinophils % (Manual) Basophils % (Manual) Nucleated RBC % Seg Neutrophils # Seg Neutrophils # Man Lymphocytes # (Manual) Monocytes # (Manual) Eosinophils # (Manual) Basophils # (Manual) PT INR Fibrinogen dRVVT Confirm Interp Positive H Factor V Activity POC ABG pH POC ABG pCO2 POC ABG pO2 ABG pO2 ABG HCO3 ABG Base Excess ABG Hemoglobin Oxyhemoglobin Sodium Potassium Chloride Carbon Dioxide BUN Creatinine Glucose POC Glucose 224 H Lactic Acid Calcium Ionized Calcium Phosphorus Magnesium Direct Bilirubin AST ALT Alkaline Phosphatase Lactate Dehydrogenase Troponin T C-Reactive Protein 1.70 H Total Protein Albumin Prealbumin Triglycerides Cholesterol LDL Cholesterol Direct HDL Cholesterol 25-OH Vitamin D Total PTH Intact Urine pH Urine WBC (Auto) Urine Creatinine Urine Total Protein Fluid Total Protein Vancomycin Trough Rheumatoid Factor Complement C4 Miscellaneous Test Crossmatch 09/12/16 09/12/16 09/13/16 16:51 23:28 04:00 WBC 45.0 H* RBC Hgb 9.4 L Hct MCV 75 L MCH 23 L MCHC RDW 19.0 H Plt Count 470 H Lymph % (Auto) [place] % (Auto) Lymph # [place] # Baso # Seg Neutrophils % Seg Neuts % (Manual) 89.0 H Lymphocytes % (Manual) 5.0 L Monocytes % (Manual) Eosinophils % (Manual) Basophils % (Manual) Nucleated RBC % Seg Neutrophils # Seg Neutrophils # Man 40.1 H Lymphocytes # (Manual) Monocytes # (Manual) Eosinophils # (Manual) Basophils # (Manual) PT INR Fibrinogen dRVVT Confirm Interp Factor V Activity POC ABG pH POC ABG pCO2 POC ABG pO2 ABG pO2 ABG HCO3 ABG Base Excess ABG Hemoglobin Oxyhemoglobin Sodium Potassium Chloride Carbon Dioxide BUN Creatinine Glucose POC Glucose 169 H 150 H Lactic Acid Calcium Ionized Calcium Phosphorus Magnesium Direct Bilirubin AST ALT Alkaline Phosphatase Lactate Dehydrogenase Troponin T C-Reactive Protein Total Protein Albumin Prealbumin Triglycerides Cholesterol LDL Cholesterol Direct HDL Cholesterol 25-OH Vitamin D Total PTH Intact Urine pH Urine WBC (Auto) Urine Creatinine Urine Total Protein Fluid Total Protein Vancomycin Trough Rheumatoid Factor Complement C4 Miscellaneous Test Crossmatch 09/13/16 09/13/16 09/13/16 04:00 11:26 17:31 WBC RBC Hgb Hct MCV MCH MCHC RDW Plt Count Lymph % (Auto) [place] % (Auto) Lymph # [place] # Baso # Seg Neutrophils % Seg Neuts % (Manual) Lymphocytes % (Manual) Monocytes % (Manual) Eosinophils % (Manual) Basophils % (Manual) Nucleated RBC % Seg Neutrophils # Seg Neutrophils # Man Lymphocytes # (Manual) Monocytes # (Manual) Eosinophils # (Manual) Basophils # (Manual) PT INR Fibrinogen dRVVT Confirm Interp Factor V Activity POC ABG pH POC ABG pCO2 POC ABG pO2 ABG pO2 ABG HCO3 ABG Base Excess ABG Hemoglobin Oxyhemoglobin Sodium Potassium Chloride Carbon Dioxide 20 L BUN 116 H Creatinine 3.0 H Glucose 172 H POC Glucose 140 H 183 H Lactic Acid Calcium Ionized Calcium Phosphorus Magnesium Direct Bilirubin AST ALT Alkaline Phosphatase Lactate Dehydrogenase Troponin T C-Reactive Protein Total Protein 6.2 L Albumin 2.9 L Prealbumin Triglycerides Cholesterol LDL Cholesterol Direct HDL Cholesterol 25-OH Vitamin D Total PTH Intact Urine pH Urine WBC (Auto) Urine Creatinine Urine Total Protein Fluid Total Protein Vancomycin Trough Rheumatoid Factor Complement C4 Miscellaneous Test Crossmatch 09/13/16 09/14/16 09/14/16 23:23 04:06 04:07 WBC 29.4 H RBC Hgb 8.9 L Hct 27.3 L MCV 75 L MCH 24 L MCHC RDW 19.1 H Plt Count Lymph % (Auto) [place] % (Auto) Lymph # [place] # Baso # Seg Neutrophils % Seg Neuts % (Manual) 84.0 H Lymphocytes % (Manual) 6.0 L Monocytes % (Manual) 9.0 H Eosinophils % (Manual) Basophils % (Manual) Nucleated RBC % Seg Neutrophils # Seg Neutrophils # Man 24.7 H Lymphocytes # (Manual) Monocytes # (Manual) 2.6 H Eosinophils # (Manual) Basophils # (Manual) PT INR Fibrinogen dRVVT Confirm Interp Factor V Activity POC ABG pH 7.342 L POC ABG pCO2 POC ABG pO2 116 H ABG pO2 ABG HCO3 ABG Base Excess ABG Hemoglobin Oxyhemoglobin Sodium Potassium Chloride Carbon Dioxide BUN Creatinine Glucose POC Glucose 154 H Lactic Acid Calcium Ionized Calcium Phosphorus Magnesium Direct Bilirubin AST ALT Alkaline Phosphatase Lactate Dehydrogenase Troponin T C-Reactive Protein Total Protein Albumin Prealbumin Triglycerides Cholesterol LDL Cholesterol Direct HDL Cholesterol 25-OH Vitamin D Total PTH Intact Urine pH Urine WBC (Auto) Urine Creatinine Urine Total Protein Fluid Total Protein Vancomycin Trough Rheumatoid Factor Complement C4 Miscellaneous Test Crossmatch 09/14/16 09/14/16 09/14/16 04:07 05:29 12:19 WBC RBC Hgb Hct MCV MCH MCHC RDW Plt Count Lymph % (Auto) [place] % (Auto) Lymph # [place] # Baso # Seg Neutrophils % Seg Neuts % (Manual) Lymphocytes % (Manual) Monocytes % (Manual) Eosinophils % (Manual) Basophils % (Manual) Nucleated RBC % Seg Neutrophils # Seg Neutrophils # Man Lymphocytes # (Manual) Monocytes # (Manual) Eosinophils # (Manual) Basophils # (Manual) PT INR Fibrinogen dRVVT Confirm Interp Factor V Activity POC ABG pH POC ABG pCO2 POC ABG pO2 ABG pO2 ABG HCO3 ABG Base Excess ABG Hemoglobin Oxyhemoglobin Sodium 136 L Potassium Chloride Carbon Dioxide 18 L BUN 121 H Creatinine 2.8 H Glucose 214 H POC Glucose 239 H 181 H Lactic Acid Calcium Ionized Calcium Phosphorus Magnesium Direct Bilirubin AST ALT Alkaline Phosphatase Lactate Dehydrogenase Troponin T C-Reactive Protein Total Protein Albumin Prealbumin Triglycerides Cholesterol LDL Cholesterol Direct HDL Cholesterol 25-OH Vitamin D Total PTH Intact Urine pH Urine WBC (Auto) Urine Creatinine Urine Total Protein Fluid Total Protein Vancomycin Trough Rheumatoid Factor Complement C4 Miscellaneous Test Crossmatch 09/14/16 09/14/16 09/15/16 18:12 23:37 05:00 WBC 26.1 H RBC 3.05 L Hgb 7.2 L Hct 22.9 L MCV 75 L MCH 24 L MCHC RDW 19.0 H Plt Count Lymph % (Auto) [place] % (Auto) Lymph # [place] # Baso # Seg Neutrophils % Seg Neuts % (Manual) Lymphocytes % (Manual) Monocytes % (Manual) Eosinophils % (Manual) Basophils % (Manual) Nucleated RBC % Seg Neutrophils # Seg Neutrophils # Man Lymphocytes # (Manual) Monocytes # (Manual) Eosinophils # (Manual) Basophils # (Manual) PT INR Fibrinogen dRVVT Confirm Interp Factor V Activity POC ABG pH POC ABG pCO2 POC ABG pO2 ABG pO2 ABG HCO3 ABG Base Excess ABG Hemoglobin Oxyhemoglobin Sodium Potassium Chloride Carbon Dioxide BUN Creatinine Glucose POC Glucose 266 H 154 H Lactic Acid Calcium Ionized Calcium Phosphorus Magnesium Direct Bilirubin AST ALT Alkaline Phosphatase Lactate Dehydrogenase Troponin T C-Reactive Protein Total Protein Albumin Prealbumin Triglycerides Cholesterol LDL Cholesterol Direct HDL Cholesterol 25-OH Vitamin D Total PTH Intact Urine pH Urine WBC (Auto) Urine Creatinine Urine Total Protein Fluid Total Protein Vancomycin Trough Rheumatoid Factor Complement C4 Miscellaneous Test Crossmatch 09/15/16 09/15/16 09/15/16 05:00 05:17 12:45 WBC RBC Hgb Hct MCV MCH MCHC RDW Plt Count Lymph % (Auto) [place] % (Auto) Lymph # [place] # Baso # Seg Neutrophils % Seg Neuts % (Manual) Lymphocytes % (Manual) Monocytes % (Manual) Eosinophils % (Manual) Basophils % (Manual) Nucleated RBC % Seg Neutrophils # Seg Neutrophils # Man Lymphocytes # (Manual) Monocytes # (Manual) Eosinophils # (Manual) Basophils # (Manual) PT INR Fibrinogen dRVVT Confirm Interp Factor V Activity POC ABG pH POC ABG pCO2 POC ABG pO2 ABG pO2 ABG HCO3 ABG Base Excess ABG Hemoglobin Oxyhemoglobin Sodium Potassium 5.2 H Chloride Carbon Dioxide 18 L BUN 139 H Creatinine 3.7 H Glucose 227 H POC Glucose 226 H 244 H Lactic Acid Calcium 8.3 L Ionized Calcium Phosphorus Magnesium Direct Bilirubin AST ALT Alkaline Phosphatase Lactate Dehydrogenase Troponin T C-Reactive Protein Total Protein Albumin Prealbumin Triglycerides Cholesterol LDL Cholesterol Direct HDL Cholesterol 25-OH Vitamin D Total PTH Intact Urine pH Urine WBC (Auto) Urine Creatinine Urine Total Protein Fluid Total Protein Vancomycin Trough Rheumatoid Factor Complement C4 Miscellaneous Test Crossmatch 09/15/16 09/15/16 09/15/16 14:32 17:33 23:35 WBC RBC Hgb Hct MCV MCH MCHC RDW Plt Count Lymph % (Auto) [place] % (Auto) Lymph # [place] # Baso # Seg Neutrophils % Seg Neuts % (Manual) Lymphocytes % (Manual) Monocytes % (Manual) Eosinophils % (Manual) Basophils % (Manual) Nucleated RBC % Seg Neutrophils # Seg Neutrophils # Man Lymphocytes # (Manual) Monocytes # (Manual) Eosinophils # (Manual) Basophils # (Manual) PT INR Fibrinogen dRVVT Confirm Interp Factor V Activity POC ABG pH POC ABG pCO2 27.7 L POC ABG pO2 120 H ABG pO2 ABG HCO3 ABG Base Excess ABG Hemoglobin Oxyhemoglobin Sodium Potassium Chloride Carbon Dioxide BUN Creatinine Glucose POC Glucose 232 H 167 H Lactic Acid Calcium Ionized Calcium Phosphorus Magnesium Direct Bilirubin AST ALT Alkaline Phosphatase Lactate Dehydrogenase Troponin T C-Reactive Protein Total Protein Albumin Prealbumin Triglycerides Cholesterol LDL Cholesterol Direct HDL Cholesterol 25-OH Vitamin D Total PTH Intact Urine pH Urine WBC (Auto) Urine Creatinine Urine Total Protein Fluid Total Protein Vancomycin Trough Rheumatoid Factor Complement C4 Miscellaneous Test Crossmatch 09/16/16 09/16/16 09/16/16 03:58 10:27 10:27 WBC 19.0 H RBC 2.77 L Hgb 6.5 L Hct 20.9 L MCV 76 L MCH 23 L MCHC RDW 19.3 H Plt Count Lymph % (Auto) 11.0 L [place] % (Auto) Lymph # [place] # 1.1 H Baso # Seg Neutrophils % 82.5 H Seg Neuts % (Manual) Lymphocytes % (Manual) Monocytes % (Manual) Eosinophils % (Manual) Basophils % (Manual) Nucleated RBC % Seg Neutrophils # 15.7 H Seg Neutrophils # Man Lymphocytes # (Manual) Monocytes # (Manual) Eosinophils # (Manual) Basophils # (Manual) PT INR Fibrinogen dRVVT Confirm Interp Factor V Activity POC ABG pH POC ABG pCO2 POC ABG pO2 ABG pO2 ABG HCO3 ABG Base Excess ABG Hemoglobin Oxyhemoglobin Sodium Potassium Chloride 109.3 H Carbon Dioxide 18 L BUN 139 H Creatinine 4.1 H Glucose 144 H POC Glucose 146 H Lactic Acid Calcium 8.1 L Ionized Calcium Phosphorus Magnesium Direct Bilirubin AST ALT Alkaline Phosphatase Lactate Dehydrogenase Troponin T C-Reactive Protein Total Protein Albumin Prealbumin Triglycerides Cholesterol LDL Cholesterol Direct HDL Cholesterol 25-OH Vitamin D Total PTH Intact Urine pH Urine WBC (Auto) Urine Creatinine Urine Total Protein Fluid Total Protein Vancomycin Trough Rheumatoid Factor Complement C4 Miscellaneous Test Crossmatch 09/16/16 09/16/16 09/16/16 12:04 12:10 13:55 WBC RBC Hgb Hct MCV MCH MCHC RDW Plt Count Lymph % (Auto) [place] % (Auto) Lymph # [place] # Baso # Seg Neutrophils % Seg Neuts % (Manual) Lymphocytes % (Manual) Monocytes % (Manual) Eosinophils % (Manual) Basophils % (Manual) Nucleated RBC % Seg Neutrophils # Seg Neutrophils # Man Lymphocytes # (Manual) Monocytes # (Manual) Eosinophils # (Manual) Basophils # (Manual) PT INR Fibrinogen dRVVT Confirm Interp Factor V Activity POC ABG pH POC ABG pCO2 32.9 L POC ABG pO2 ABG pO2 ABG HCO3 ABG Base Excess ABG Hemoglobin Oxyhemoglobin Sodium Potassium Chloride Carbon Dioxide BUN Creatinine Glucose POC Glucose 185 H Lactic Acid Calcium Ionized Calcium Phosphorus Magnesium Direct Bilirubin AST ALT Alkaline Phosphatase Lactate Dehydrogenase Troponin T C-Reactive Protein Total Protein Albumin Prealbumin Triglycerides Cholesterol LDL Cholesterol Direct HDL Cholesterol 25-OH Vitamin D Total PTH Intact Urine pH Urine WBC (Auto) Urine Creatinine Urine Total Protein Fluid Total Protein Vancomycin Trough Rheumatoid Factor Complement C4 Miscellaneous Test Crossmatch See Detail 09/16/16 09/16/16 09/16/16 17:55 19:19 23:48 WBC RBC Hgb Hct MCV MCH MCHC RDW Plt Count Lymph % (Auto) [place] % (Auto) Lymph # [place] # Baso # Seg Neutrophils % Seg Neuts % (Manual) Lymphocytes % (Manual) Monocytes % (Manual) Eosinophils % (Manual) Basophils % (Manual) Nucleated RBC % Seg Neutrophils # Seg Neutrophils # Man Lymphocytes # (Manual) Monocytes # (Manual) Eosinophils # (Manual) Basophils # (Manual) PT INR Fibrinogen dRVVT Confirm Interp Factor V Activity POC ABG pH POC ABG pCO2 POC ABG pO2 ABG pO2 ABG HCO3 ABG Base Excess ABG Hemoglobin Oxyhemoglobin Sodium Potassium Chloride Carbon Dioxide BUN Creatinine Glucose POC Glucose 222 H 107 H Lactic Acid Calcium Ionized Calcium Phosphorus Magnesium Direct Bilirubin AST ALT Alkaline Phosphatase Lactate Dehydrogenase Troponin T C-Reactive Protein Total Protein Albumin Prealbumin Triglycerides Cholesterol LDL Cholesterol Direct HDL Cholesterol 25-OH Vitamin D Total PTH Intact Urine pH Urine WBC (Auto) Urine Creatinine 47.4 H Urine Total Protein 16 H Fluid Total Protein Vancomycin Trough Rheumatoid Factor Complement C4 Miscellaneous Test Crossmatch 09/17/16 09/17/16 09/17/16 03:45 03:45 04:55 WBC 19.6 H RBC 3.41 L Hgb 8.5 L Hct 26.7 L MCV 78 L MCH 25 L MCHC RDW 19.9 H Plt Count Lymph % (Auto) 9.3 L [place] % (Auto) Lymph # [place] # 1.2 H Baso # Seg Neutrophils % 83.9 H Seg Neuts % (Manual) Lymphocytes % (Manual) Monocytes % (Manual) Eosinophils % (Manual) Basophils % (Manual) Nucleated RBC % Seg Neutrophils # 16.4 H Seg Neutrophils # Man Lymphocytes # (Manual) Monocytes # (Manual) Eosinophils # (Manual) Basophils # (Manual) PT INR Fibrinogen dRVVT Confirm Interp Factor V Activity POC ABG pH POC ABG pCO2 POC ABG pO2 ABG pO2 ABG HCO3 ABG Base Excess ABG Hemoglobin Oxyhemoglobin Sodium 146 H Potassium 5.1 H Chloride 110.9 H Carbon Dioxide 16 L BUN 146 H Creatinine 4.0 H Glucose 108 H POC Glucose 133 H Lactic Acid Calcium Ionized Calcium Phosphorus Magnesium 3.00 H Direct Bilirubin AST ALT Alkaline Phosphatase Lactate Dehydrogenase Troponin T C-Reactive Protein Total Protein Albumin Prealbumin Triglycerides Cholesterol LDL Cholesterol Direct HDL Cholesterol 25-OH Vitamin D Total PTH Intact Urine pH Urine WBC (Auto) Urine Creatinine Urine Total Protein Fluid Total Protein Vancomycin Trough Rheumatoid Factor Complement C4 Miscellaneous Test Crossmatch 09/17/16 09/17/16 09/17/16 11:15 17:33 23:47 WBC RBC Hgb Hct MCV MCH MCHC RDW Plt Count Lymph % (Auto) [place] % (Auto) Lymph # [place] # Baso # Seg Neutrophils % Seg Neuts % (Manual) Lymphocytes % (Manual) Monocytes % (Manual) Eosinophils % (Manual) Basophils % (Manual) Nucleated RBC % Seg Neutrophils # Seg Neutrophils # Man Lymphocytes # (Manual) Monocytes # (Manual) Eosinophils # (Manual) Basophils # (Manual) PT INR Fibrinogen dRVVT Confirm Interp Factor V Activity POC ABG pH POC ABG pCO2 POC ABG pO2 ABG pO2 ABG HCO3 ABG Base Excess ABG Hemoglobin Oxyhemoglobin Sodium Potassium Chloride Carbon Dioxide BUN Creatinine Glucose POC Glucose 176 H 246 H 148 H Lactic Acid Calcium Ionized Calcium Phosphorus Magnesium Direct Bilirubin AST ALT Alkaline Phosphatase Lactate Dehydrogenase Troponin T C-Reactive Protein Total Protein Albumin Prealbumin Triglycerides Cholesterol LDL Cholesterol Direct HDL Cholesterol 25-OH Vitamin D Total PTH Intact Urine pH Urine WBC (Auto) Urine Creatinine Urine Total Protein Fluid Total Protein Vancomycin Trough Rheumatoid Factor Complement C4 Miscellaneous Test Crossmatch 09/18/16 09/18/16 09/18/16 05:33 08:31 08:31 WBC 18.0 H RBC 3.17 L Hgb 9.0 L Hct 25.7 L MCV MCH MCHC 35 H RDW 20.4 H Plt Count Lymph % (Auto) [place] % (Auto) Lymph # [place] # Baso # Seg Neutrophils % Seg Neuts % (Manual) Lymphocytes % (Manual) Monocytes % (Manual) Eosinophils % (Manual) Basophils % (Manual) Nucleated RBC % Seg Neutrophils # Seg Neutrophils # Man Lymphocytes # (Manual) Monocytes # (Manual) Eosinophils # (Manual) Basophils # (Manual) PT INR Fibrinogen dRVVT Confirm Interp Factor V Activity POC ABG pH POC ABG pCO2 POC ABG pO2 ABG pO2 ABG HCO3 ABG Base Excess ABG Hemoglobin Oxyhemoglobin Sodium Potassium Chloride Carbon Dioxide 15 L BUN 124 H Creatinine 3.8 H Glucose POC Glucose 120 H Lactic Acid Calcium 8.1 L Ionized Calcium Phosphorus Magnesium Direct Bilirubin AST ALT Alkaline Phosphatase Lactate Dehydrogenase Troponin T C-Reactive Protein Total Protein Albumin Prealbumin Triglycerides Cholesterol LDL Cholesterol Direct HDL Cholesterol 25-OH Vitamin D Total PTH Intact Urine pH Urine WBC (Auto) Urine Creatinine Urine Total Protein Fluid Total Protein Vancomycin Trough Rheumatoid Factor Complement C4 Miscellaneous Test Crossmatch 09/18/16 09/18/16 09/18/16 12:03 15:34 17:50 WBC RBC Hgb Hct MCV MCH MCHC RDW Plt Count Lymph % (Auto) [place] % (Auto) Lymph # [place] # Baso # Seg Neutrophils % Seg Neuts % (Manual) Lymphocytes % (Manual) Monocytes % (Manual) Eosinophils % (Manual) Basophils % (Manual) Nucleated RBC % Seg Neutrophils # Seg Neutrophils # Man Lymphocytes # (Manual) Monocytes # (Manual) Eosinophils # (Manual) Basophils # (Manual) PT INR Fibrinogen dRVVT Confirm Interp Factor V Activity POC ABG pH POC ABG pCO2 25.7 L POC ABG pO2 66 L ABG pO2 ABG HCO3 ABG Base Excess ABG Hemoglobin Oxyhemoglobin Sodium Potassium Chloride Carbon Dioxide BUN Creatinine Glucose POC Glucose 156 H 220 H Lactic Acid Calcium Ionized Calcium Phosphorus Magnesium Direct Bilirubin AST ALT Alkaline Phosphatase Lactate Dehydrogenase Troponin T C-Reactive Protein Total Protein Albumin Prealbumin Triglycerides Cholesterol LDL Cholesterol Direct HDL Cholesterol 25-OH Vitamin D Total PTH Intact Urine pH Urine WBC (Auto) Urine Creatinine Urine Total Protein Fluid Total Protein Vancomycin Trough Rheumatoid Factor Complement C4 Miscellaneous Test Crossmatch 09/19/16 09/19/16 09/19/16 06:21 09:50 09:50 WBC 17.1 H RBC 3.49 L Hgb 9.0 L Hct 28.1 L MCV MCH 26 L MCHC RDW 20.8 H Plt Count Lymph % (Auto) 11.5 L [place] % (Auto) 7.5 H Lymph # [place] # 1.3 H Baso # Seg Neutrophils % 79.8 H Seg Neuts % (Manual) Lymphocytes % (Manual) Monocytes % (Manual) Eosinophils % (Manual) Basophils % (Manual) Nucleated RBC % Seg Neutrophils # 13.7 H Seg Neutrophils # Man Lymphocytes # (Manual) Monocytes # (Manual) Eosinophils # (Manual) Basophils # (Manual) PT INR Fibrinogen dRVVT Confirm Interp Factor V Activity POC ABG pH POC ABG pCO2 POC ABG pO2 ABG pO2 ABG HCO3 ABG Base Excess ABG Hemoglobin Oxyhemoglobin Sodium Potassium Chloride 108.6 H Carbon Dioxide 15 L BUN 125 H Creatinine 4.1 H Glucose 124 H POC Glucose 119 H Lactic Acid Calcium Ionized Calcium Phosphorus Magnesium Direct Bilirubin AST ALT Alkaline Phosphatase Lactate Dehydrogenase Troponin T C-Reactive Protein Total Protein Albumin Prealbumin Triglycerides Cholesterol LDL Cholesterol Direct HDL Cholesterol 25-OH Vitamin D Total PTH Intact Urine pH Urine WBC (Auto) Urine Creatinine Urine Total Protein Fluid Total Protein Vancomycin Trough Rheumatoid Factor Complement C4 Miscellaneous Test Crossmatch 09/19/16 09/19/16 09/19/16 11:25 17:53 23:36 WBC RBC Hgb Hct MCV MCH MCHC RDW Plt Count Lymph % (Auto) [place] % (Auto) Lymph # [place] # Baso # Seg Neutrophils % Seg Neuts % (Manual) Lymphocytes % (Manual) Monocytes % (Manual) Eosinophils % (Manual) Basophils % (Manual) Nucleated RBC % Seg Neutrophils # Seg Neutrophils # Man Lymphocytes # (Manual) Monocytes # (Manual) Eosinophils # (Manual) Basophils # (Manual) PT INR Fibrinogen dRVVT Confirm Interp Factor V Activity POC ABG pH POC ABG pCO2 POC ABG pO2 ABG pO2 ABG HCO3 ABG Base Excess ABG Hemoglobin Oxyhemoglobin Sodium Potassium Chloride Carbon Dioxide BUN Creatinine Glucose POC Glucose 160 H 245 H 121 H Lactic Acid Calcium Ionized Calcium Phosphorus Magnesium Direct Bilirubin AST ALT Alkaline Phosphatase Lactate Dehydrogenase Troponin T C-Reactive Protein Total Protein Albumin Prealbumin Triglycerides Cholesterol LDL Cholesterol Direct HDL Cholesterol 25-OH Vitamin D Total PTH Intact Urine pH Urine WBC (Auto) Urine Creatinine Urine Total Protein Fluid Total Protein Vancomycin Trough Rheumatoid Factor Complement C4 Miscellaneous Test Crossmatch 09/20/16 09/20/16 09/20/16 04:10 04:10 04:10 WBC 17.0 H RBC 3.21 L Hgb 8.2 L Hct 25.5 L MCV MCH 26 L MCHC RDW 20.9 H Plt Count Lymph % (Auto) [place] % (Auto) Lymph # [place] # Baso # Seg Neutrophils % Seg Neuts % (Manual) Lymphocytes % (Manual) Monocytes % (Manual) Eosinophils % (Manual) Basophils % (Manual) Nucleated RBC % Seg Neutrophils # Seg Neutrophils # Man Lymphocytes # (Manual) Monocytes # (Manual) Eosinophils # (Manual) Basophils # (Manual) PT INR Fibrinogen dRVVT Confirm Interp Factor V Activity POC ABG pH POC ABG pCO2 POC ABG pO2 ABG pO2 ABG HCO3 ABG Base Excess ABG Hemoglobin Oxyhemoglobin Sodium Potassium Chloride 111.0 H Carbon Dioxide 16 L BUN 129 H Creatinine 3.7 H Glucose 115 H POC Glucose Lactic Acid Calcium 8.2 L Ionized Calcium Phosphorus Magnesium Direct Bilirubin AST ALT Alkaline Phosphatase Lactate Dehydrogenase Troponin T C-Reactive Protein Total Protein Albumin Prealbumin Triglycerides 243 H Cholesterol LDL Cholesterol Direct HDL Cholesterol 25-OH Vitamin D Total PTH Intact Urine pH Urine WBC (Auto) Urine Creatinine Urine Total Protein Fluid Total Protein Vancomycin Trough Rheumatoid Factor Complement C4 Miscellaneous Test Crossmatch 09/20/16 09/20/16 09/20/16 05:40 11:52 16:50 WBC RBC Hgb Hct MCV MCH MCHC RDW Plt Count Lymph % (Auto) [place] % (Auto) Lymph # [place] # Baso # Seg Neutrophils % Seg Neuts % (Manual) Lymphocytes % (Manual) Monocytes % (Manual) Eosinophils % (Manual) Basophils % (Manual) Nucleated RBC % Seg Neutrophils # Seg Neutrophils # Man Lymphocytes # (Manual) Monocytes # (Manual) Eosinophils # (Manual) Basophils # (Manual) PT INR Fibrinogen dRVVT Confirm Interp Factor V Activity POC ABG pH POC ABG pCO2 POC ABG pO2 ABG pO2 ABG HCO3 ABG Base Excess ABG Hemoglobin Oxyhemoglobin Sodium Potassium Chloride Carbon Dioxide BUN Creatinine Glucose POC Glucose 131 H 183 H 236 H Lactic Acid Calcium Ionized Calcium Phosphorus Magnesium Direct Bilirubin AST ALT Alkaline Phosphatase Lactate Dehydrogenase Troponin T C-Reactive Protein Total Protein Albumin Prealbumin Triglycerides Cholesterol LDL Cholesterol Direct HDL Cholesterol 25-OH Vitamin D Total PTH Intact Urine pH Urine WBC (Auto) Urine Creatinine Urine Total Protein Fluid Total Protein Vancomycin Trough Rheumatoid Factor Complement C4 Miscellaneous Test Crossmatch 09/20/16 09/21/16 09/21/16 23:51 03:30 04:44 WBC RBC Hgb Hct MCV MCH MCHC RDW Plt Count Lymph % (Auto) [place] % (Auto) Lymph # [place] # Baso # Seg Neutrophils % Seg Neuts % (Manual) Lymphocytes % (Manual) Monocytes % (Manual) Eosinophils % (Manual) Basophils % (Manual) Nucleated RBC % Seg Neutrophils # Seg Neutrophils # Man Lymphocytes # (Manual) Monocytes # (Manual) Eosinophils # (Manual) Basophils # (Manual) PT INR Fibrinogen dRVVT Confirm Interp Factor V Activity POC ABG pH POC ABG pCO2 POC ABG pO2 ABG pO2 ABG HCO3 ABG Base Excess ABG Hemoglobin Oxyhemoglobin Sodium Potassium Chloride Carbon Dioxide BUN Creatinine Glucose POC Glucose 114 H 141 H Lactic Acid Calcium Ionized Calcium Phosphorus Magnesium 2.70 H Direct Bilirubin AST ALT Alkaline Phosphatase Lactate Dehydrogenase Troponin T C-Reactive Protein Total Protein Albumin Prealbumin Triglycerides Cholesterol LDL Cholesterol Direct HDL Cholesterol 25-OH Vitamin D Total PTH Intact Urine pH Urine WBC (Auto) Urine Creatinine Urine Total Protein Fluid Total Protein Vancomycin Trough Rheumatoid Factor Complement C4 Miscellaneous Test Crossmatch 09/21/16 09/21/16 09/21/16 07:45 07:45 10:01 WBC 13.8 H RBC 2.94 L Hgb 7.5 L Hct 23.5 L MCV MCH 26 L MCHC RDW 21.2 H Plt Count Lymph % (Auto) 6.9 L [place] % (Auto) 9.4 H Lymph # 0.9 L [place] # 1.3 H Baso # Seg Neutrophils % 83.2 H Seg Neuts % (Manual) Lymphocytes % (Manual) Monocytes % (Manual) Eosinophils % (Manual) Basophils % (Manual) Nucleated RBC % Seg Neutrophils # 11.5 H Seg Neutrophils # Man Lymphocytes # (Manual) Monocytes # (Manual) Eosinophils # (Manual) Basophils # (Manual) PT INR Fibrinogen dRVVT Confirm Interp Factor V Activity POC ABG pH 7.308 L POC ABG pCO2 31.9 L POC ABG pO2 148 H ABG pO2 ABG HCO3 ABG Base Excess ABG Hemoglobin Oxyhemoglobin Sodium 147 H Potassium Chloride 114.2 H Carbon Dioxide 15 L BUN 120 H Creatinine 3.9 H Glucose 156 H POC Glucose Lactic Acid Calcium 8.2 L Ionized Calcium Phosphorus Magnesium Direct Bilirubin AST ALT Alkaline Phosphatase Lactate Dehydrogenase Troponin T C-Reactive Protein Total Protein Albumin Prealbumin Triglycerides Cholesterol LDL Cholesterol Direct HDL Cholesterol 25-OH Vitamin D Total PTH Intact Urine pH Urine WBC (Auto) Urine Creatinine Urine Total Protein Fluid Total Protein Vancomycin Trough Rheumatoid Factor Complement C4 Miscellaneous Test Crossmatch 09/21/16 09/21/16 09/21/16 12:00 12:03 13:00 WBC RBC Hgb Hct MCV MCH MCHC RDW Plt Count Lymph % (Auto) [place] % (Auto) Lymph # [place] # Baso # Seg Neutrophils % Seg Neuts % (Manual) Lymphocytes % (Manual) Monocytes % (Manual) Eosinophils % (Manual) Basophils % (Manual) Nucleated RBC % Seg Neutrophils # Seg Neutrophils # Man Lymphocytes # (Manual) Monocytes # (Manual) Eosinophils # (Manual) Basophils # (Manual) PT INR Fibrinogen dRVVT Confirm Interp Factor V Activity POC ABG pH POC ABG pCO2 POC ABG pO2 ABG pO2 ABG HCO3 ABG Base Excess ABG Hemoglobin Oxyhemoglobin Sodium Potassium Chloride Carbon Dioxide BUN Creatinine Glucose POC Glucose 163 H Lactic Acid Calcium Ionized Calcium Phosphorus Magnesium Direct Bilirubin AST ALT Alkaline Phosphatase Lactate Dehydrogenase Troponin T C-Reactive Protein Total Protein Albumin Prealbumin Triglycerides Cholesterol LDL Cholesterol Direct HDL Cholesterol 25-OH Vitamin D Total PTH Intact Urine pH Urine WBC (Auto) Urine Creatinine 54.8 H Urine Total Protein Fluid Total Protein Vancomycin Trough 2.3 L Rheumatoid Factor Complement C4 Miscellaneous Test Crossmatch 09/21/16 09/21/16 09/22/16 16:51 23:17 06:27 WBC RBC Hgb Hct MCV MCH MCHC RDW Plt Count Lymph % (Auto) [place] % (Auto) Lymph # [place] # Baso # Seg Neutrophils % Seg Neuts % (Manual) Lymphocytes % (Manual) Monocytes % (Manual) Eosinophils % (Manual) Basophils % (Manual) Nucleated RBC % Seg Neutrophils # Seg Neutrophils # Man Lymphocytes # (Manual) Monocytes # (Manual) Eosinophils # (Manual) Basophils # (Manual) PT INR Fibrinogen dRVVT Confirm Interp Factor V Activity POC ABG pH POC ABG pCO2 POC ABG pO2 ABG pO2 ABG HCO3 ABG Base Excess ABG Hemoglobin Oxyhemoglobin Sodium Potassium Chloride Carbon Dioxide BUN Creatinine Glucose POC Glucose 206 H 114 H 115 H Lactic Acid Calcium Ionized Calcium Phosphorus Magnesium Direct Bilirubin AST ALT Alkaline Phosphatase Lactate Dehydrogenase Troponin T C-Reactive Protein Total Protein Albumin Prealbumin Triglycerides Cholesterol LDL Cholesterol Direct HDL Cholesterol 25-OH Vitamin D Total PTH Intact Urine pH Urine WBC (Auto) Urine Creatinine Urine Total Protein Fluid Total Protein Vancomycin Trough Rheumatoid Factor Complement C4 Miscellaneous Test Crossmatch 09/22/16 09/22/16 09/22/16 07:50 07:50 12:00 WBC 17.8 H RBC 3.04 L Hgb 8.0 L Hct 24.7 L MCV MCH 26 L MCHC RDW 21.6 H Plt Count Lymph % (Auto) [place] % (Auto) Lymph # [place] # Baso # Seg Neutrophils % Seg Neuts % (Manual) Lymphocytes % (Manual) Monocytes % (Manual) Eosinophils % (Manual) Basophils % (Manual) Nucleated RBC % Seg Neutrophils # Seg Neutrophils # Man Lymphocytes # (Manual) Monocytes # (Manual) Eosinophils # (Manual) Basophils # (Manual) PT INR Fibrinogen dRVVT Confirm Interp Factor V Activity POC ABG pH POC ABG pCO2 POC ABG pO2 ABG pO2 ABG HCO3 ABG Base Excess ABG Hemoglobin Oxyhemoglobin Sodium 150 H Potassium Chloride 118.2 H Carbon Dioxide 14 L BUN 111 H Creatinine 3.7 H Glucose 157 H POC Glucose 183 H Lactic Acid Calcium Ionized Calcium Phosphorus Magnesium Direct Bilirubin AST ALT Alkaline Phosphatase Lactate Dehydrogenase Troponin T C-Reactive Protein Total Protein Albumin Prealbumin Triglycerides Cholesterol LDL Cholesterol Direct HDL Cholesterol 25-OH Vitamin D Total PTH Intact Urine pH Urine WBC (Auto) Urine Creatinine Urine Total Protein Fluid Total Protein Vancomycin Trough Rheumatoid Factor Complement C4 Miscellaneous Test Crossmatch 09/22/16 09/22/16 09/23/16 17:29 23:10 05:00 WBC 19.2 H RBC 3.13 L Hgb 8.0 L Hct 25.2 L MCV MCH 26 L MCHC RDW 22.1 H Plt Count Lymph % (Auto) [place] % (Auto) Lymph # [place] # Baso # Seg Neutrophils % Seg Neuts % (Manual) 92.0 H Lymphocytes % (Manual) 3.0 L Monocytes % (Manual) Eosinophils % (Manual) Basophils % (Manual) Nucleated RBC % Seg Neutrophils # Seg Neutrophils # Man 17.7 H Lymphocytes # (Manual) 0.6 L Monocytes # (Manual) Eosinophils # (Manual) Basophils # (Manual) PT INR Fibrinogen dRVVT Confirm Interp Factor V Activity POC ABG pH POC ABG pCO2 POC ABG pO2 ABG pO2 ABG HCO3 ABG Base Excess ABG Hemoglobin Oxyhemoglobin Sodium Potassium Chloride Carbon Dioxide BUN Creatinine Glucose POC Glucose 197 H 169 H Lactic Acid Calcium Ionized Calcium Phosphorus Magnesium Direct Bilirubin AST ALT Alkaline Phosphatase Lactate Dehydrogenase Troponin T C-Reactive Protein Total Protein Albumin Prealbumin Triglycerides Cholesterol LDL Cholesterol Direct HDL Cholesterol 25-OH Vitamin D Total PTH Intact Urine pH Urine WBC (Auto) Urine Creatinine Urine Total Protein Fluid Total Protein Vancomycin Trough Rheumatoid Factor Complement C4 Miscellaneous Test Crossmatch 09/23/16 09/23/16 09/23/16 05:00 05:00 05:10 WBC RBC Hgb Hct MCV MCH MCHC RDW Plt Count Lymph % (Auto) [place] % (Auto) Lymph # [place] # Baso # Seg Neutrophils % Seg Neuts % (Manual) Lymphocytes % (Manual) Monocytes % (Manual) Eosinophils % (Manual) Basophils % (Manual) Nucleated RBC % Seg Neutrophils # Seg Neutrophils # Man Lymphocytes # (Manual) Monocytes # (Manual) Eosinophils # (Manual) Basophils # (Manual) PT INR Fibrinogen dRVVT Confirm Interp Factor V Activity POC ABG pH POC ABG pCO2 POC ABG pO2 ABG pO2 ABG HCO3 ABG Base Excess ABG Hemoglobin Oxyhemoglobin Sodium 147 H Potassium 3.2 L Chloride 115.7 H Carbon Dioxide 13 L BUN 111 H Creatinine 3.8 H Glucose 194 H POC Glucose 188 H Lactic Acid Calcium 7.3 L D Ionized Calcium Phosphorus Magnesium Direct Bilirubin AST ALT Alkaline Phosphatase Lactate Dehydrogenase Troponin T C-Reactive Protein 3.20 H Total Protein Albumin Prealbumin Triglycerides Cholesterol LDL Cholesterol Direct HDL Cholesterol 25-OH Vitamin D Total PTH Intact Urine pH Urine WBC (Auto) Urine Creatinine Urine Total Protein Fluid Total Protein Vancomycin Trough Rheumatoid Factor Complement C4 Miscellaneous Test Crossmatch 09/23/16 09/23/16 09/23/16 11:37 12:29 18:01 WBC RBC Hgb Hct MCV MCH MCHC RDW Plt Count Lymph % (Auto) [place] % (Auto) Lymph # [place] # Baso # Seg Neutrophils % Seg Neuts % (Manual) Lymphocytes % (Manual) Monocytes % (Manual) Eosinophils % (Manual) Basophils % (Manual) Nucleated RBC % Seg Neutrophils # Seg Neutrophils # Man Lymphocytes # (Manual) Monocytes # (Manual) Eosinophils # (Manual) Basophils # (Manual) PT INR Fibrinogen dRVVT Confirm Interp Factor V Activity POC ABG pH POC ABG pCO2 18.9 L POC ABG pO2 143 H ABG pO2 ABG HCO3 ABG Base Excess ABG Hemoglobin Oxyhemoglobin Sodium Potassium Chloride Carbon Dioxide BUN Creatinine Glucose POC Glucose 153 H 108 H Lactic Acid Calcium Ionized Calcium Phosphorus Magnesium Direct Bilirubin AST ALT Alkaline Phosphatase Lactate Dehydrogenase Troponin T C-Reactive Protein Total Protein Albumin Prealbumin Triglycerides Cholesterol LDL Cholesterol Direct HDL Cholesterol 25-OH Vitamin D Total PTH Intact Urine pH Urine WBC (Auto) Urine Creatinine Urine Total Protein Fluid Total Protein Vancomycin Trough Rheumatoid Factor Complement C4 Miscellaneous Test Crossmatch 09/23/16 09/23/16 09/24/16 21:19 23:43 05:16 WBC RBC Hgb Hct MCV MCH MCHC RDW Plt Count Lymph % (Auto) [place] % (Auto) Lymph # [place] # Baso # Seg Neutrophils % Seg Neuts % (Manual) Lymphocytes % (Manual) Monocytes % (Manual) Eosinophils % (Manual) Basophils % (Manual) Nucleated RBC % Seg Neutrophils # Seg Neutrophils # Man Lymphocytes # (Manual) Monocytes # (Manual) Eosinophils # (Manual) Basophils # (Manual) PT INR Fibrinogen dRVVT Confirm Interp Factor V Activity POC ABG pH POC ABG pCO2 17.3 L POC ABG pO2 112 H ABG pO2 ABG HCO3 ABG Base Excess ABG Hemoglobin Oxyhemoglobin Sodium Potassium Chloride Carbon Dioxide BUN Creatinine Glucose POC Glucose 143 H 164 H Lactic Acid Calcium Ionized Calcium Phosphorus Magnesium Direct Bilirubin AST ALT Alkaline Phosphatase Lactate Dehydrogenase Troponin T C-Reactive Protein Total Protein Albumin Prealbumin Triglycerides Cholesterol LDL Cholesterol Direct HDL Cholesterol 25-OH Vitamin D Total PTH Intact Urine pH Urine WBC (Auto) Urine Creatinine Urine Total Protein Fluid Total Protein Vancomycin Trough Rheumatoid Factor Complement C4 Miscellaneous Test Crossmatch 09/24/16 09/24/16 09/24/16 05:21 11:58 17:06 WBC RBC Hgb Hct MCV MCH MCHC RDW Plt Count Lymph % (Auto) [place] % (Auto) Lymph # [place] # Baso # Seg Neutrophils % Seg Neuts % (Manual) Lymphocytes % (Manual) Monocytes % (Manual) Eosinophils % (Manual) Basophils % (Manual) Nucleated RBC % Seg Neutrophils # Seg Neutrophils # Man Lymphocytes # (Manual) Monocytes # (Manual) Eosinophils # (Manual) Basophils # (Manual) PT INR Fibrinogen dRVVT Confirm Interp Factor V Activity POC ABG pH POC ABG pCO2 POC ABG pO2 ABG pO2 ABG HCO3 ABG Base Excess ABG Hemoglobin Oxyhemoglobin Sodium Potassium Chloride Carbon Dioxide 10 L BUN 103 H Creatinine 4.3 H Glucose 163 H POC Glucose 173 H 167 H Lactic Acid Calcium 6.5 L Ionized Calcium Phosphorus Magnesium Direct Bilirubin AST ALT Alkaline Phosphatase Lactate Dehydrogenase Troponin T C-Reactive Protein Total Protein Albumin Prealbumin Triglycerides Cholesterol LDL Cholesterol Direct HDL Cholesterol 25-OH Vitamin D Total PTH Intact Urine pH Urine WBC (Auto) Urine Creatinine Urine Total Protein Fluid Total Protein Vancomycin Trough Rheumatoid Factor Complement C4 Miscellaneous Test Crossmatch 09/24/16 09/24/16 09/24/16 20:15 21:02 23:48 WBC RBC Hgb Hct MCV MCH MCHC RDW Plt Count Lymph % (Auto) [place] % (Auto) Lymph # [place] # Baso # Seg Neutrophils % Seg Neuts % (Manual) Lymphocytes % (Manual) Monocytes % (Manual) Eosinophils % (Manual) Basophils % (Manual) Nucleated RBC % Seg Neutrophils # Seg Neutrophils # Man Lymphocytes # (Manual) Monocytes # (Manual) Eosinophils # (Manual) Basophils # (Manual) PT INR Fibrinogen dRVVT Confirm Interp Factor V Activity POC ABG pH 7.288 L POC ABG pCO2 30.2 L 21.5 L POC ABG pO2 32 L 39 L ABG pO2 ABG HCO3 ABG Base Excess ABG Hemoglobin Oxyhemoglobin Sodium Potassium Chloride Carbon Dioxide BUN Creatinine Glucose POC Glucose 109 H Lactic Acid Calcium Ionized Calcium Phosphorus Magnesium Direct Bilirubin AST ALT Alkaline Phosphatase Lactate Dehydrogenase Troponin T C-Reactive Protein Total Protein Albumin Prealbumin Triglycerides Cholesterol LDL Cholesterol Direct HDL Cholesterol 25-OH Vitamin D Total PTH Intact Urine pH Urine WBC (Auto) Urine Creatinine Urine Total Protein Fluid Total Protein Vancomycin Trough Rheumatoid Factor Complement C4 Miscellaneous Test Crossmatch 09/25/16 09/25/16 09/25/16 04:20 04:20 04:20 WBC RBC 2.58 L Hgb 7.0 L Hct 21.0 L MCV MCH 27 L MCHC RDW 23.8 H Plt Count Lymph % (Auto) [place] % (Auto) Lymph # [place] # Baso # Seg Neutrophils % Seg Neuts % (Manual) Lymphocytes % (Manual) 12.0 L Monocytes % (Manual) Eosinophils % (Manual) 7.0 H Basophils % (Manual) 2.0 H Nucleated RBC % Seg Neutrophils # Seg Neutrophils # Man Lymphocytes # (Manual) 0.9 L Monocytes # (Manual) Eosinophils # (Manual) 0.5 H Basophils # (Manual) PT INR Fibrinogen dRVVT Confirm Interp Factor V Activity POC ABG pH POC ABG pCO2 POC ABG pO2 ABG pO2 ABG HCO3 ABG Base Excess ABG Hemoglobin Oxyhemoglobin Sodium Potassium Chloride Carbon Dioxide 15 L BUN 72 H Creatinine 3.8 H Glucose POC Glucose Lactic Acid Calcium 6.0 L Ionized Calcium Phosphorus 4.60 H Magnesium 1.60 L Direct Bilirubin AST ALT Alkaline Phosphatase Lactate Dehydrogenase Troponin T C-Reactive Protein Total Protein Albumin Prealbumin Triglycerides Cholesterol LDL Cholesterol Direct HDL Cholesterol 25-OH Vitamin D Total PTH Intact Urine pH Urine WBC (Auto) Urine Creatinine Urine Total Protein Fluid Total Protein Vancomycin Trough Rheumatoid Factor Complement C4 Miscellaneous Test Crossmatch 09/25/16 09/25/16 09/25/16 04:57 08:02 10:30 WBC RBC Hgb Hct MCV MCH MCHC RDW Plt Count Lymph % (Auto) [place] % (Auto) Lymph # [place] # Baso # Seg Neutrophils % Seg Neuts % (Manual) Lymphocytes % (Manual) Monocytes % (Manual) Eosinophils % (Manual) Basophils % (Manual) Nucleated RBC % Seg Neutrophils # Seg Neutrophils # Man Lymphocytes # (Manual) Monocytes # (Manual) Eosinophils # (Manual) Basophils # (Manual) PT INR Fibrinogen dRVVT Confirm Interp Factor V Activity POC ABG pH POC ABG pCO2 24.7 L POC ABG pO2 152 H ABG pO2 ABG HCO3 ABG Base Excess ABG Hemoglobin Oxyhemoglobin Sodium Potassium Chloride Carbon Dioxide BUN Creatinine Glucose POC Glucose 113 H Lactic Acid Calcium Ionized Calcium Phosphorus Magnesium Direct Bilirubin AST ALT Alkaline Phosphatase Lactate Dehydrogenase Troponin T C-Reactive Protein Total Protein Albumin Prealbumin Triglycerides Cholesterol LDL Cholesterol Direct HDL Cholesterol 25-OH Vitamin D Total PTH Intact Urine pH Urine WBC (Auto) Urine Creatinine Urine Total Protein Fluid Total Protein Vancomycin Trough Rheumatoid Factor Complement C4 Miscellaneous Test Crossmatch See Detail 09/25/16 09/25/16 09/25/16 12:05 17:44 23:47 WBC RBC Hgb Hct MCV MCH MCHC RDW Plt Count Lymph % (Auto) [place] % (Auto) Lymph # [place] # Baso # Seg Neutrophils % Seg Neuts % (Manual) Lymphocytes % (Manual) Monocytes % (Manual) Eosinophils % (Manual) Basophils % (Manual) Nucleated RBC % Seg Neutrophils # Seg Neutrophils # Man Lymphocytes # (Manual) Monocytes # (Manual) Eosinophils # (Manual) Basophils # (Manual) PT INR Fibrinogen dRVVT Confirm Interp Factor V Activity POC ABG pH POC ABG pCO2 POC ABG pO2 ABG pO2 ABG HCO3 ABG Base Excess ABG Hemoglobin Oxyhemoglobin Sodium Potassium Chloride Carbon Dioxide BUN Creatinine Glucose POC Glucose 117 H 119 H 150 H Lactic Acid Calcium Ionized Calcium Phosphorus Magnesium Direct Bilirubin AST ALT Alkaline Phosphatase Lactate Dehydrogenase Troponin T C-Reactive Protein Total Protein Albumin Prealbumin Triglycerides Cholesterol LDL Cholesterol Direct HDL Cholesterol 25-OH Vitamin D Total PTH Intact Urine pH Urine WBC (Auto) Urine Creatinine Urine Total Protein Fluid Total Protein Vancomycin Trough Rheumatoid Factor Complement C4 Miscellaneous Test Crossmatch 09/26/16 09/26/16 09/26/16 04:25 04:25 04:25 WBC RBC 2.65 L Hgb 7.4 L Hct 21.6 L MCV MCH MCHC RDW 22.5 H Plt Count Lymph % (Auto) [place] % (Auto) Lymph # [place] # Baso # Seg Neutrophils % Seg Neuts % (Manual) Lymphocytes % (Manual) 6.0 L Monocytes % (Manual) Eosinophils % (Manual) 11.0 H Basophils % (Manual) Nucleated RBC % Seg Neutrophils # Seg Neutrophils # Man Lymphocytes # (Manual) 0.4 L Monocytes # (Manual) Eosinophils # (Manual) 0.6 H Basophils # (Manual) PT INR Fibrinogen dRVVT Confirm Interp Factor V Activity POC ABG pH POC ABG pCO2 POC ABG pO2 ABG pO2 ABG HCO3 ABG Base Excess ABG Hemoglobin Oxyhemoglobin Sodium Potassium Chloride 97.0 L Carbon Dioxide 19 L BUN 43 H Creatinine 2.6 H Glucose 130 H POC Glucose Lactic Acid 4.40 H* Calcium 6.7 L Ionized Calcium Phosphorus Magnesium Direct Bilirubin AST ALT Alkaline Phosphatase Lactate Dehydrogenase Troponin T C-Reactive Protein Total Protein Albumin Prealbumin Triglycerides Cholesterol LDL Cholesterol Direct HDL Cholesterol 25-OH Vitamin D Total PTH Intact Urine pH Urine WBC (Auto) Urine Creatinine Urine Total Protein Fluid Total Protein Vancomycin Trough Rheumatoid Factor Complement C4 Miscellaneous Test Crossmatch 09/26/16 09/26/16 09/26/16 05:20 11:44 12:12 WBC RBC Hgb Hct MCV MCH MCHC RDW Plt Count Lymph % (Auto) [place] % (Auto) Lymph # [place] # Baso # Seg Neutrophils % Seg Neuts % (Manual) Lymphocytes % (Manual) Monocytes % (Manual) Eosinophils % (Manual) Basophils % (Manual) Nucleated RBC % Seg Neutrophils # Seg Neutrophils # Man Lymphocytes # (Manual) Monocytes # (Manual) Eosinophils # (Manual) Basophils # (Manual) PT INR Fibrinogen dRVVT Confirm Interp Factor V Activity POC ABG pH POC ABG pCO2 27.0 L POC ABG pO2 69 L ABG pO2 ABG HCO3 ABG Base Excess ABG Hemoglobin Oxyhemoglobin Sodium Potassium Chloride Carbon Dioxide BUN Creatinine Glucose POC Glucose 121 H 128 H Lactic Acid Calcium Ionized Calcium Phosphorus Magnesium Direct Bilirubin AST ALT Alkaline Phosphatase Lactate Dehydrogenase Troponin T C-Reactive Protein Total Protein Albumin Prealbumin Triglycerides Cholesterol LDL Cholesterol Direct HDL Cholesterol 25-OH Vitamin D Total PTH Intact Urine pH Urine WBC (Auto) Urine Creatinine Urine Total Protein Fluid Total Protein Vancomycin Trough Rheumatoid Factor Complement C4 Miscellaneous Test Crossmatch 09/26/16 09/26/16 09/27/16 18:31 23:40 08:20 WBC RBC Hgb Hct MCV MCH MCHC RDW Plt Count Lymph % (Auto) [place] % (Auto) Lymph # [place] # Baso # Seg Neutrophils % Seg Neuts % (Manual) Lymphocytes % (Manual) Monocytes % (Manual) Eosinophils % (Manual) Basophils % (Manual) Nucleated RBC % Seg Neutrophils # Seg Neutrophils # Man Lymphocytes # (Manual) Monocytes # (Manual) Eosinophils # (Manual) Basophils # (Manual) PT INR Fibrinogen dRVVT Confirm Interp Factor V Activity POC ABG pH POC ABG pCO2 POC ABG pO2 ABG pO2 ABG HCO3 ABG Base Excess ABG Hemoglobin Oxyhemoglobin Sodium Potassium Chloride Carbon Dioxide BUN Creatinine Glucose POC Glucose 120 H 133 H Lactic Acid 4.10 H* Calcium Ionized Calcium Phosphorus Magnesium Direct Bilirubin AST ALT Alkaline Phosphatase Lactate Dehydrogenase Troponin T C-Reactive Protein Total Protein Albumin Prealbumin Triglycerides Cholesterol LDL Cholesterol Direct HDL Cholesterol 25-OH Vitamin D Total PTH Intact Urine pH Urine WBC (Auto) Urine Creatinine Urine Total Protein Fluid Total Protein Vancomycin Trough Rheumatoid Factor Complement C4 Miscellaneous Test Crossmatch 09/27/16 09/27/16 09/27/16 11:23 15:00 18:15 WBC RBC Hgb Hct MCV MCH MCHC RDW Plt Count Lymph % (Auto) [place] % (Auto) Lymph # [place] # Baso # Seg Neutrophils % Seg Neuts % (Manual) Lymphocytes % (Manual) Monocytes % (Manual) Eosinophils % (Manual) Basophils % (Manual) Nucleated RBC % Seg Neutrophils # Seg Neutrophils # Man Lymphocytes # (Manual) Monocytes # (Manual) Eosinophils # (Manual) Basophils # (Manual) PT INR Fibrinogen dRVVT Confirm Interp Factor V Activity POC ABG pH 7.459 H POC ABG pCO2 27.1 L POC ABG pO2 140 H ABG pO2 ABG HCO3 ABG Base Excess ABG Hemoglobin Oxyhemoglobin Sodium Potassium Chloride Carbon Dioxide BUN Creatinine Glucose POC Glucose 114 H 127 H Lactic Acid Calcium Ionized Calcium Phosphorus Magnesium Direct Bilirubin AST ALT Alkaline Phosphatase Lactate Dehydrogenase Troponin T C-Reactive Protein Total Protein Albumin Prealbumin Triglycerides Cholesterol LDL Cholesterol Direct HDL Cholesterol 25-OH Vitamin D Total PTH Intact Urine pH Urine WBC (Auto) Urine Creatinine Urine Total Protein Fluid Total Protein Vancomycin Trough Rheumatoid Factor Complement C4 Miscellaneous Test Crossmatch 09/27/16 09/27/16 09/28/16 Unknown Unknown 03:45 WBC RBC 2.49 L Hgb 6.8 L Hct 20.7 L MCV MCH 27 L MCHC RDW 22.1 H Plt Count Lymph % (Auto) [place] % (Auto) Lymph # [place] # Baso # Seg Neutrophils % Seg Neuts % (Manual) 32.0 L Lymphocytes % (Manual) 12.0 L Monocytes % (Manual) 11.0 H Eosinophils % (Manual) 10.0 H Basophils % (Manual) Nucleated RBC % Seg Neutrophils # Seg Neutrophils # Man Lymphocytes # (Manual) 1.0 L Monocytes # (Manual) 0.9 H Eosinophils # (Manual) 0.8 H Basophils # (Manual) PT INR Fibrinogen dRVVT Confirm Interp Factor V Activity POC ABG pH POC ABG pCO2 POC ABG pO2 ABG pO2 ABG HCO3 ABG Base Excess ABG Hemoglobin Oxyhemoglobin Sodium 135 L 135 L Potassium 3.5 L Chloride 93.6 L 94.4 L Carbon Dioxide 17 L 21 L BUN 45 H 28 H Creatinine 3.3 H 2.5 H Glucose 106 H POC Glucose Lactic Acid Calcium 7.3 L 7.1 L Ionized Calcium Phosphorus Magnesium Direct Bilirubin AST ALT Alkaline Phosphatase Lactate Dehydrogenase Troponin T C-Reactive Protein Total Protein Albumin Prealbumin Triglycerides Cholesterol LDL Cholesterol Direct HDL Cholesterol 25-OH Vitamin D Total PTH Intact Urine pH Urine WBC (Auto) Urine Creatinine Urine Total Protein Fluid Total Protein Vancomycin Trough Rheumatoid Factor Complement C4 Miscellaneous Test Crossmatch 09/28/16 09/28/16 09/28/16 03:45 07:25 11:58 WBC 13.3 H RBC 3.01 L Hgb 8.4 L Hct 25.0 L MCV MCH MCHC RDW 20.5 H Plt Count 128 L Lymph % (Auto) [place] % (Auto) Lymph # [place] # Baso # Seg Neutrophils % Seg Neuts % (Manual) Lymphocytes % (Manual) 7.0 L Monocytes % (Manual) Eosinophils % (Manual) 6.0 H Basophils % (Manual) Nucleated RBC % Seg Neutrophils # Seg Neutrophils # Man Lymphocytes # (Manual) 0.9 L Monocytes # (Manual) Eosinophils # (Manual) 0.8 H Basophils # (Manual) PT INR Fibrinogen dRVVT Confirm Interp Factor V Activity POC ABG pH POC ABG pCO2 POC ABG pO2 ABG pO2 ABG HCO3 ABG Base Excess ABG Hemoglobin Oxyhemoglobin Sodium Potassium Chloride Carbon Dioxide BUN Creatinine Glucose POC Glucose 121 H Lactic Acid 4.50 H* Calcium Ionized Calcium Phosphorus Magnesium Direct Bilirubin AST ALT Alkaline Phosphatase Lactate Dehydrogenase Troponin T C-Reactive Protein Total Protein Albumin Prealbumin Triglycerides Cholesterol LDL Cholesterol Direct HDL Cholesterol 25-OH Vitamin D Total PTH Intact Urine pH Urine WBC (Auto) Urine Creatinine Urine Total Protein Fluid Total Protein Vancomycin Trough Rheumatoid Factor Complement C4 Miscellaneous Test Crossmatch 09/29/16 09/29/16 09/29/16 06:45 06:45 06:45 WBC 14.9 H RBC 2.74 L Hgb 7.6 L Hct 23.2 L MCV MCH MCHC RDW 20.5 H Plt Count 81 L Lymph % (Auto) [place] % (Auto) Lymph # [place] # Baso # Seg Neutrophils % Seg Neuts % (Manual) 81.0 H Lymphocytes % (Manual) 4.0 L Monocytes % (Manual) Eosinophils % (Manual) Basophils % (Manual) Nucleated RBC % Seg Neutrophils # Seg Neutrophils # Man 12.1 H Lymphocytes # (Manual) 0.6 L Monocytes # (Manual) Eosinophils # (Manual) Basophils # (Manual) PT INR Fibrinogen dRVVT Confirm Interp Factor V Activity POC ABG pH POC ABG pCO2 POC ABG pO2 ABG pO2 ABG HCO3 ABG Base Excess ABG Hemoglobin Oxyhemoglobin Sodium 133 L Potassium 3.4 L Chloride 92.5 L Carbon Dioxide 21 L BUN 33 H Creatinine 3.0 H Glucose POC Glucose Lactic Acid Calcium 6.6 L Ionized Calcium Phosphorus Magnesium 1.40 L Direct Bilirubin 0.9 H AST ALT Alkaline Phosphatase Lactate Dehydrogenase Troponin T C-Reactive Protein Total Protein 4.3 L Albumin 1.3 L Prealbumin Triglycerides Cholesterol LDL Cholesterol Direct HDL Cholesterol 25-OH Vitamin D Total PTH Intact Urine pH Urine WBC (Auto) Urine Creatinine Urine Total Protein Fluid Total Protein Vancomycin Trough Rheumatoid Factor Complement C4 Miscellaneous Test Crossmatch 09/29/16 09/29/16 09/30/16 17:52 20:12 00:07 WBC RBC Hgb Hct MCV MCH MCHC RDW Plt Count Lymph % (Auto) [place] % (Auto) Lymph # [place] # Baso # Seg Neutrophils % Seg Neuts % (Manual) Lymphocytes % (Manual) Monocytes % (Manual) Eosinophils % (Manual) Basophils % (Manual) Nucleated RBC % Seg Neutrophils # Seg Neutrophils # Man Lymphocytes # (Manual) Monocytes # (Manual) Eosinophils # (Manual) Basophils # (Manual) PT INR Fibrinogen dRVVT Confirm Interp Factor V Activity POC ABG pH POC ABG pCO2 POC ABG pO2 ABG pO2 ABG HCO3 ABG Base Excess ABG Hemoglobin Oxyhemoglobin Sodium Potassium Chloride Carbon Dioxide BUN Creatinine Glucose POC Glucose 50 L 51 L Lactic Acid Calcium Ionized Calcium Phosphorus Magnesium Direct Bilirubin AST ALT Alkaline Phosphatase Lactate Dehydrogenase Troponin T 0.204 H* C-Reactive Protein Total Protein Albumin Prealbumin Triglycerides Cholesterol 31 L LDL Cholesterol Direct 4 L HDL Cholesterol 3 L 25-OH Vitamin D Total PTH Intact Urine pH Urine WBC (Auto) Urine Creatinine Urine Total Protein Fluid Total Protein Vancomycin Trough Rheumatoid Factor Complement C4 Miscellaneous Test Crossmatch 09/30/16 09/30/16 09/30/16 01:30 05:15 06:10 WBC RBC Hgb Hct MCV MCH MCHC RDW Plt Count Lymph % (Auto) [place] % (Auto) Lymph # [place] # Baso # Seg Neutrophils % Seg Neuts % (Manual) Lymphocytes % (Manual) Monocytes % (Manual) Eosinophils % (Manual) Basophils % (Manual) Nucleated RBC % Seg Neutrophils # Seg Neutrophils # Man Lymphocytes # (Manual) Monocytes # (Manual) Eosinophils # (Manual) Basophils # (Manual) PT INR Fibrinogen dRVVT Confirm Interp Factor V Activity POC ABG pH POC ABG pCO2 POC ABG pO2 ABG pO2 ABG HCO3 ABG Base Excess ABG Hemoglobin Oxyhemoglobin Sodium 133 L Potassium 3.2 L Chloride 93.2 L Carbon Dioxide 19 L BUN 36 H Creatinine 3.2 H Glucose 104 H POC Glucose 167 H 146 H Lactic Acid Calcium 6.4 L Ionized Calcium Phosphorus Magnesium 1.60 L Direct Bilirubin AST ALT Alkaline Phosphatase Lactate Dehydrogenase Troponin T C-Reactive Protein Total Protein Albumin Prealbumin Triglycerides Cholesterol LDL Cholesterol Direct HDL Cholesterol 25-OH Vitamin D Total PTH Intact Urine pH Urine WBC (Auto) Urine Creatinine Urine Total Protein Fluid Total Protein Vancomycin Trough Rheumatoid Factor Complement C4 Miscellaneous Test Crossmatch 09/30/16 09/30/16 09/30/16 11:26 13:39 18:38 WBC RBC Hgb Hct MCV MCH MCHC RDW Plt Count Lymph % (Auto) [place] % (Auto) Lymph # [place] # Baso # Seg Neutrophils % Seg Neuts % (Manual) Lymphocytes % (Manual) Monocytes % (Manual) Eosinophils % (Manual) Basophils % (Manual) Nucleated RBC % Seg Neutrophils # Seg Neutrophils # Man Lymphocytes # (Manual) Monocytes # (Manual) Eosinophils # (Manual) Basophils # (Manual) PT INR Fibrinogen dRVVT Confirm Interp Factor V Activity POC ABG pH 7.479 H POC ABG pCO2 29.8 L POC ABG pO2 117 H ABG pO2 ABG HCO3 ABG Base Excess ABG Hemoglobin Oxyhemoglobin Sodium Potassium Chloride Carbon Dioxide BUN Creatinine Glucose POC Glucose 140 H 122 H Lactic Acid Calcium Ionized Calcium Phosphorus Magnesium Direct Bilirubin AST ALT Alkaline Phosphatase Lactate Dehydrogenase Troponin T C-Reactive Protein Total Protein Albumin Prealbumin Triglycerides Cholesterol LDL Cholesterol Direct HDL Cholesterol 25-OH Vitamin D Total PTH Intact Urine pH Urine WBC (Auto) Urine Creatinine Urine Total Protein Fluid Total Protein Vancomycin Trough Rheumatoid Factor Complement C4 Miscellaneous Test Crossmatch 10/01/16 10/01/16 10/01/16 06:00 06:00 12:37 WBC 12.6 H RBC 2.75 L Hgb 7.3 L Hct 23.3 L MCV MCH 27 L MCHC RDW 20.6 H Plt Count 72 L Lymph % (Auto) [place] % (Auto) Lymph # [place] # Baso # Seg Neutrophils % Seg Neuts % (Manual) 31.0 L Lymphocytes % (Manual) 8.0 L Monocytes % (Manual) Eosinophils % (Manual) Basophils % (Manual) Nucleated RBC % 3.0 H Seg Neutrophils # Seg Neutrophils # Man Lymphocytes # (Manual) 1.0 L Monocytes # (Manual) Eosinophils # (Manual) Basophils # (Manual) PT INR Fibrinogen dRVVT Confirm Interp Factor V Activity POC ABG pH POC ABG pCO2 POC ABG pO2 ABG pO2 ABG HCO3 ABG Base Excess ABG Hemoglobin Oxyhemoglobin Sodium 127 L Potassium Chloride 86.8 L Carbon Dioxide 20 L BUN 42 H Creatinine 3.5 H Glucose POC Glucose 65 L Lactic Acid Calcium 7.0 L Ionized Calcium Phosphorus Magnesium Direct Bilirubin AST ALT Alkaline Phosphatase Lactate Dehydrogenase Troponin T C-Reactive Protein Total Protein Albumin Prealbumin Triglycerides Cholesterol LDL Cholesterol Direct HDL Cholesterol 25-OH Vitamin D Total PTH Intact Urine pH Urine WBC (Auto) Urine Creatinine Urine Total Protein Fluid Total Protein Vancomycin Trough Rheumatoid Factor Complement C4 Miscellaneous Test Crossmatch 10/01/16 10/01/16 10/02/16 17:39 23:32 00:59 WBC RBC Hgb Hct MCV MCH MCHC RDW Plt Count Lymph % (Auto) [place] % (Auto) Lymph # [place] # Baso # Seg Neutrophils % Seg Neuts % (Manual) Lymphocytes % (Manual) Monocytes % (Manual) Eosinophils % (Manual) Basophils % (Manual) Nucleated RBC % Seg Neutrophils # Seg Neutrophils # Man Lymphocytes # (Manual) Monocytes # (Manual) Eosinophils # (Manual) Basophils # (Manual) PT INR Fibrinogen dRVVT Confirm Interp Factor V Activity POC ABG pH POC ABG pCO2 POC ABG pO2 ABG pO2 ABG HCO3 ABG Base Excess ABG Hemoglobin Oxyhemoglobin Sodium Potassium Chloride Carbon Dioxide BUN Creatinine Glucose POC Glucose 107 H 52 L 145 H Lactic Acid Calcium Ionized Calcium Phosphorus Magnesium Direct Bilirubin AST ALT Alkaline Phosphatase Lactate Dehydrogenase Troponin T C-Reactive Protein Total Protein Albumin Prealbumin Triglycerides Cholesterol LDL Cholesterol Direct HDL Cholesterol 25-OH Vitamin D Total PTH Intact Urine pH Urine WBC (Auto) Urine Creatinine Urine Total Protein Fluid Total Protein Vancomycin Trough Rheumatoid Factor Complement C4 Miscellaneous Test Crossmatch 10/02/16 10/02/16 10/02/16 10:30 10:50 10:50 WBC 14.7 H RBC 2.76 L Hgb 7.4 L Hct 23.6 L MCV MCH 27 L MCHC RDW 20.2 H Plt Count 79 L Lymph % (Auto) [place] % (Auto) Lymph # [place] # Baso # Seg Neutrophils % Seg Neuts % (Manual) 86.0 H Lymphocytes % (Manual) 6.0 L Monocytes % (Manual) Eosinophils % (Manual) Basophils % (Manual) Nucleated RBC % Seg Neutrophils # Seg Neutrophils # Man 12.6 H Lymphocytes # (Manual) 0.9 L Monocytes # (Manual) Eosinophils # (Manual) Basophils # (Manual) PT INR Fibrinogen dRVVT Confirm Interp Factor V Activity POC ABG pH 7.486 H POC ABG pCO2 30.1 L POC ABG pO2 108 H ABG pO2 ABG HCO3 ABG Base Excess ABG Hemoglobin Oxyhemoglobin Sodium 131 L Potassium 3.4 L Chloride 89.9 L Carbon Dioxide BUN 26 H Creatinine 2.6 H Glucose POC Glucose Lactic Acid Calcium 7.0 L Ionized Calcium Phosphorus Magnesium Direct Bilirubin AST ALT Alkaline Phosphatase Lactate Dehydrogenase Troponin T C-Reactive Protein Total Protein Albumin Prealbumin Triglycerides Cholesterol LDL Cholesterol Direct HDL Cholesterol 25-OH Vitamin D Total PTH Intact Urine pH Urine WBC (Auto) Urine Creatinine Urine Total Protein Fluid Total Protein Vancomycin Trough Rheumatoid Factor Complement C4 Miscellaneous Test Crossmatch 10/02/16 10/03/16 10/03/16 23:45 00:45 05:10 WBC 12.9 H RBC 2.77 L Hgb 7.6 L Hct 23.7 L MCV MCH 27 L MCHC RDW 19.7 H Plt Count 89 L Lymph % (Auto) [place] % (Auto) Lymph # [place] # Baso # Seg Neutrophils % Seg Neuts % (Manual) Lymphocytes % (Manual) 8.0 L Monocytes % (Manual) Eosinophils % (Manual) Basophils % (Manual) Nucleated RBC % Seg Neutrophils # 11.9 H Seg Neutrophils # Man Lymphocytes # (Manual) 1.0 L Monocytes # (Manual) Eosinophils # (Manual) Basophils # (Manual) PT INR Fibrinogen dRVVT Confirm Interp Factor V Activity POC ABG pH POC ABG pCO2 POC ABG pO2 ABG pO2 ABG HCO3 ABG Base Excess ABG Hemoglobin Oxyhemoglobin Sodium Potassium Chloride Carbon Dioxide BUN Creatinine Glucose POC Glucose 55 L 199 H Lactic Acid Calcium Ionized Calcium Phosphorus Magnesium Direct Bilirubin AST ALT Alkaline Phosphatase Lactate Dehydrogenase Troponin T C-Reactive Protein Total Protein Albumin Prealbumin Triglycerides Cholesterol LDL Cholesterol Direct HDL Cholesterol 25-OH Vitamin D Total PTH Intact Urine pH Urine WBC (Auto) Urine Creatinine Urine Total Protein Fluid Total Protein Vancomycin Trough Rheumatoid Factor Complement C4 Miscellaneous Test Crossmatch 10/03/16 10/03/16 10/03/16 05:10 12:14 13:18 WBC RBC Hgb Hct MCV MCH MCHC RDW Plt Count Lymph % (Auto) [place] % (Auto) Lymph # [place] # Baso # Seg Neutrophils % Seg Neuts % (Manual) Lymphocytes % (Manual) Monocytes % (Manual) Eosinophils % (Manual) Basophils % (Manual) Nucleated RBC % Seg Neutrophils # Seg Neutrophils # Man Lymphocytes # (Manual) Monocytes # (Manual) Eosinophils # (Manual) Basophils # (Manual) PT INR Fibrinogen dRVVT Confirm Interp Factor V Activity POC ABG pH POC ABG pCO2 POC ABG pO2 ABG pO2 ABG HCO3 ABG Base Excess ABG Hemoglobin Oxyhemoglobin Sodium 129 L Potassium 3.3 L Chloride 88.8 L Carbon Dioxide 20 L BUN 29 H Creatinine 2.8 H Glucose POC Glucose 68 L 127 H Lactic Acid Calcium 7.2 L Ionized Calcium Phosphorus Magnesium Direct Bilirubin AST ALT Alkaline Phosphatase Lactate Dehydrogenase Troponin T C-Reactive Protein Total Protein Albumin Prealbumin Triglycerides Cholesterol LDL Cholesterol Direct HDL Cholesterol 25-OH Vitamin D Total PTH Intact Urine pH Urine WBC (Auto) Urine Creatinine Urine Total Protein Fluid Total Protein Vancomycin Trough Rheumatoid Factor Complement C4 Miscellaneous Test Crossmatch 10/03/16 10/03/16 10/03/16 14:42 18:21 19:09 WBC RBC Hgb Hct MCV MCH MCHC RDW Plt Count Lymph % (Auto) [place] % (Auto) Lymph # [place] # Baso # Seg Neutrophils % Seg Neuts % (Manual) Lymphocytes % (Manual) Monocytes % (Manual) Eosinophils % (Manual) Basophils % (Manual) Nucleated RBC % Seg Neutrophils # Seg Neutrophils # Man Lymphocytes # (Manual) Monocytes # (Manual) Eosinophils # (Manual) Basophils # (Manual) PT INR Fibrinogen dRVVT Confirm Interp Factor V Activity POC ABG pH 7.499 H POC ABG pCO2 28.4 L POC ABG pO2 44 L ABG pO2 ABG HCO3 ABG Base Excess ABG Hemoglobin Oxyhemoglobin Sodium Potassium Chloride Carbon Dioxide BUN Creatinine Glucose POC Glucose 64 L 205 H Lactic Acid Calcium Ionized Calcium Phosphorus Magnesium Direct Bilirubin AST ALT Alkaline Phosphatase Lactate Dehydrogenase Troponin T C-Reactive Protein Total Protein Albumin Prealbumin Triglycerides Cholesterol LDL Cholesterol Direct HDL Cholesterol 25-OH Vitamin D Total PTH Intact Urine pH Urine WBC (Auto) Urine Creatinine Urine Total Protein Fluid Total Protein Vancomycin Trough Rheumatoid Factor Complement C4 Miscellaneous Test Crossmatch 10/03/16 10/04/16 10/04/16 23:33 04:18 06:30 WBC RBC 2.54 L Hgb 7.1 L Hct 21.7 L MCV MCH MCHC RDW 19.5 H Plt Count 76 L Lymph % (Auto) [place] % (Auto) Lymph # [place] # Baso # Seg Neutrophils % Seg Neuts % (Manual) 88.0 H Lymphocytes % (Manual) 6.0 L Monocytes % (Manual) Eosinophils % (Manual) Basophils % (Manual) Nucleated RBC % Seg Neutrophils # Seg Neutrophils # Man 8.8 H Lymphocytes # (Manual) 0.6 L Monocytes # (Manual) Eosinophils # (Manual) Basophils # (Manual) PT INR Fibrinogen dRVVT Confirm Interp Factor V Activity POC ABG pH 7.461 H POC ABG pCO2 33.6 L POC ABG pO2 211 H ABG pO2 ABG HCO3 ABG Base Excess ABG Hemoglobin Oxyhemoglobin Sodium Potassium Chloride Carbon Dioxide BUN Creatinine Glucose POC Glucose 136 H Lactic Acid Calcium Ionized Calcium Phosphorus Magnesium Direct Bilirubin AST ALT Alkaline Phosphatase Lactate Dehydrogenase Troponin T C-Reactive Protein Total Protein Albumin Prealbumin Triglycerides Cholesterol LDL Cholesterol Direct HDL Cholesterol 25-OH Vitamin D Total PTH Intact Urine pH Urine WBC (Auto) Urine Creatinine Urine Total Protein Fluid Total Protein Vancomycin Trough Rheumatoid Factor Complement C4 Miscellaneous Test Crossmatch 10/04/16 10/04/16 10/04/16 06:30 11:45 17:54 WBC RBC Hgb Hct MCV MCH MCHC RDW Plt Count Lymph % (Auto) [place] % (Auto) Lymph # [place] # Baso # Seg Neutrophils % Seg Neuts % (Manual) Lymphocytes % (Manual) Monocytes % (Manual) Eosinophils % (Manual) Basophils % (Manual) Nucleated RBC % Seg Neutrophils # Seg Neutrophils # Man Lymphocytes # (Manual) Monocytes # (Manual) Eosinophils # (Manual) Basophils # (Manual) PT INR Fibrinogen dRVVT Confirm Interp Factor V Activity POC ABG pH POC ABG pCO2 POC ABG pO2 ABG pO2 ABG HCO3 ABG Base Excess ABG Hemoglobin Oxyhemoglobin Sodium 128 L Potassium Chloride 87.4 L Carbon Dioxide 20 L BUN 34 H Creatinine 2.9 H Glucose 127 H POC Glucose 158 H 160 H Lactic Acid Calcium 7.4 L Ionized Calcium Phosphorus Magnesium Direct Bilirubin AST ALT Alkaline Phosphatase Lactate Dehydrogenase Troponin T C-Reactive Protein Total Protein Albumin Prealbumin Triglycerides Cholesterol LDL Cholesterol Direct HDL Cholesterol 25-OH Vitamin D Total PTH Intact Urine pH Urine WBC (Auto) Urine Creatinine Urine Total Protein Fluid Total Protein Vancomycin Trough Rheumatoid Factor Complement C4 Miscellaneous Test Crossmatch 10/04/16 10/05/16 10/05/16 23:25 04:30 05:00 WBC RBC 2.64 L Hgb 7.5 L Hct 22.6 L MCV MCH MCHC RDW 19.3 H Plt Count 80 L Lymph % (Auto) [place] % (Auto) Lymph # [place] # Baso # Seg Neutrophils % Seg Neuts % (Manual) Lymphocytes % (Manual) 12.0 L Monocytes % (Manual) Eosinophils % (Manual) Basophils % (Manual) Nucleated RBC % Seg Neutrophils # Seg Neutrophils # Man Lymphocytes # (Manual) Monocytes # (Manual) Eosinophils # (Manual) Basophils # (Manual) PT INR Fibrinogen dRVVT Confirm Interp Factor V Activity POC ABG pH 7.475 H POC ABG pCO2 33.3 L POC ABG pO2 140 H ABG pO2 ABG HCO3 ABG Base Excess ABG Hemoglobin Oxyhemoglobin Sodium Potassium Chloride Carbon Dioxide BUN Creatinine Glucose POC Glucose 141 H Lactic Acid Calcium Ionized Calcium Phosphorus Magnesium Direct Bilirubin AST ALT Alkaline Phosphatase Lactate Dehydrogenase Troponin T C-Reactive Protein Total Protein Albumin Prealbumin Triglycerides Cholesterol LDL Cholesterol Direct HDL Cholesterol 25-OH Vitamin D Total PTH Intact Urine pH Urine WBC (Auto) Urine Creatinine Urine Total Protein Fluid Total Protein Vancomycin Trough Rheumatoid Factor Complement C4 Miscellaneous Test Crossmatch 10/05/16 10/05/16 10/05/16 05:00 05:09 12:58 WBC RBC Hgb Hct MCV MCH MCHC RDW Plt Count Lymph % (Auto) [place] % (Auto) Lymph # [place] # Baso # Seg Neutrophils % Seg Neuts % (Manual) Lymphocytes % (Manual) Monocytes % (Manual) Eosinophils % (Manual) Basophils % (Manual) Nucleated RBC % Seg Neutrophils # Seg Neutrophils # Man Lymphocytes # (Manual) Monocytes # (Manual) Eosinophils # (Manual) Basophils # (Manual) PT INR Fibrinogen dRVVT Confirm Interp Factor V Activity POC ABG pH POC ABG pCO2 POC ABG pO2 ABG pO2 ABG HCO3 ABG Base Excess ABG Hemoglobin Oxyhemoglobin Sodium 131 L Potassium Chloride 94.0 L Carbon Dioxide 20 L BUN 22 H Creatinine 2.0 H Glucose 123 H POC Glucose 166 H 179 H Lactic Acid Calcium 7.7 L Ionized Calcium Phosphorus 2.20 L D Magnesium Direct Bilirubin AST ALT Alkaline Phosphatase Lactate Dehydrogenase Troponin T C-Reactive Protein Total Protein Albumin Prealbumin Triglycerides Cholesterol LDL Cholesterol Direct HDL Cholesterol 25-OH Vitamin D Total PTH Intact Urine pH Urine WBC (Auto) Urine Creatinine Urine Total Protein Fluid Total Protein Vancomycin Trough Rheumatoid Factor Complement C4 Miscellaneous Test Crossmatch 10/05/16 10/05/16 10/05/16 15:50 18:53 23:12 WBC RBC Hgb Hct MCV MCH MCHC RDW Plt Count Lymph % (Auto) [place] % (Auto) Lymph # [place] # Baso # Seg Neutrophils % Seg Neuts % (Manual) Lymphocytes % (Manual) Monocytes % (Manual) Eosinophils % (Manual) Basophils % (Manual) Nucleated RBC % Seg Neutrophils # Seg Neutrophils # Man Lymphocytes # (Manual) Monocytes # (Manual) Eosinophils # (Manual) Basophils # (Manual) PT INR Fibrinogen dRVVT Confirm Interp Factor V Activity POC ABG pH POC ABG pCO2 POC ABG pO2 ABG pO2 ABG HCO3 ABG Base Excess ABG Hemoglobin Oxyhemoglobin Sodium Potassium Chloride Carbon Dioxide BUN Creatinine Glucose POC Glucose 150 H 164 H Lactic Acid Calcium Ionized Calcium Phosphorus Magnesium Direct Bilirubin AST ALT Alkaline Phosphatase Lactate Dehydrogenase Troponin T C-Reactive Protein Total Protein Albumin Prealbumin Triglycerides Cholesterol LDL Cholesterol Direct HDL Cholesterol 25-OH Vitamin D Total PTH Intact Urine pH Urine WBC (Auto) Urine Creatinine Urine Total Protein Fluid Total Protein Vancomycin Trough Rheumatoid Factor Complement C4 Miscellaneous Test Crossmatch See Detail 10/06/16 10/06/16 10/06/16 03:50 03:50 04:53 WBC RBC 3.00 L Hgb 8.6 L Hct 25.8 L MCV MCH MCHC RDW 17.9 H Plt Count 65 L Lymph % (Auto) [place] % (Auto) Lymph # [place] # Baso # Seg Neutrophils % Seg Neuts % (Manual) 30.0 L Lymphocytes % (Manual) 5.0 L Monocytes % (Manual) Eosinophils % (Manual) Basophils % (Manual) Nucleated RBC % Seg Neutrophils # Seg Neutrophils # Man Lymphocytes # (Manual) 0.4 L Monocytes # (Manual) Eosinophils # (Manual) Basophils # (Manual) PT INR Fibrinogen dRVVT Confirm Interp Factor V Activity POC ABG pH 7.310 L POC ABG pCO2 49.0 H POC ABG pO2 ABG pO2 ABG HCO3 ABG Base Excess ABG Hemoglobin Oxyhemoglobin Sodium 133 L Potassium Chloride 95.9 L Carbon Dioxide BUN 26 H Creatinine 2.0 H Glucose 116 H POC Glucose Lactic Acid Calcium 7.8 L Ionized Calcium Phosphorus Magnesium Direct Bilirubin AST ALT Alkaline Phosphatase Lactate Dehydrogenase Troponin T C-Reactive Protein Total Protein Albumin Prealbumin Triglycerides Cholesterol LDL Cholesterol Direct HDL Cholesterol 25-OH Vitamin D Total PTH Intact Urine pH Urine WBC (Auto) Urine Creatinine Urine Total Protein Fluid Total Protein Vancomycin Trough Rheumatoid Factor Complement C4 Miscellaneous Test Crossmatch 10/06/16 10/06/16 10/06/16 05:23 11:52 18:34 WBC RBC Hgb Hct MCV MCH MCHC RDW Plt Count Lymph % (Auto) [place] % (Auto) Lymph # [place] # Baso # Seg Neutrophils % Seg Neuts % (Manual) Lymphocytes % (Manual) Monocytes % (Manual) Eosinophils % (Manual) Basophils % (Manual) Nucleated RBC % Seg Neutrophils # Seg Neutrophils # Man Lymphocytes # (Manual) Monocytes # (Manual) Eosinophils # (Manual) Basophils # (Manual) PT INR Fibrinogen dRVVT Confirm Interp Factor V Activity POC ABG pH POC ABG pCO2 POC ABG pO2 ABG pO2 ABG HCO3 ABG Base Excess ABG Hemoglobin Oxyhemoglobin Sodium Potassium Chloride Carbon Dioxide BUN Creatinine Glucose POC Glucose 126 H 116 H 129 H Lactic Acid Calcium Ionized Calcium Phosphorus Magnesium Direct Bilirubin AST ALT Alkaline Phosphatase Lactate Dehydrogenase Troponin T C-Reactive Protein Total Protein Albumin Prealbumin Triglycerides Cholesterol LDL Cholesterol Direct HDL Cholesterol 25-OH Vitamin D Total PTH Intact Urine pH Urine WBC (Auto) Urine Creatinine Urine Total Protein Fluid Total Protein Vancomycin Trough Rheumatoid Factor Complement C4 Miscellaneous Test Crossmatch 10/07/16 10/07/16 10/07/16 03:45 05:00 10:00 WBC 17.0 H RBC 2.68 L Hgb 7.3 L Hct 25.3 L MCV MCH 27 L MCHC 29 L RDW 19.6 H Plt Count 74 L Lymph % (Auto) [place] % (Auto) Lymph # [place] # Baso # Seg Neutrophils % Seg Neuts % (Manual) Lymphocytes % (Manual) 12.0 L Monocytes % (Manual) Eosinophils % (Manual) Basophils % (Manual) Nucleated RBC % 4.0 H Seg Neutrophils # Seg Neutrophils # Man 10.7 H Lymphocytes # (Manual) Monocytes # (Manual) Eosinophils # (Manual) Basophils # (Manual) PT INR Fibrinogen dRVVT Confirm Interp Factor V Activity POC ABG pH POC ABG pCO2 POC ABG pO2 ABG pO2 ABG HCO3 ABG Base Excess ABG Hemoglobin Oxyhemoglobin Sodium 130 L Potassium 3.2 L Chloride 93.9 L Carbon Dioxide 20 L BUN 44 H Creatinine 2.7 H Glucose 129 H POC Glucose Lactic Acid Calcium 7.4 L Ionized Calcium Phosphorus Magnesium Direct Bilirubin AST ALT 6 L Alkaline Phosphatase 195 H Lactate Dehydrogenase Troponin T C-Reactive Protein Total Protein 4.9 L Albumin 1.0 L Prealbumin Triglycerides Cholesterol LDL Cholesterol Direct HDL Cholesterol 25-OH Vitamin D Total PTH Intact Urine pH Urine WBC (Auto) Urine Creatinine Urine Total Protein Fluid Total Protein Vancomycin Trough Rheumatoid Factor Complement C4 Miscellaneous Test Flexitest 1 H Crossmatch 10/07/16 10/07/16 10/07/16 10:00 11:24 18:10 WBC RBC Hgb Hct MCV MCH MCHC RDW Plt Count Lymph % (Auto) [place] % (Auto) Lymph # [place] # Baso # Seg Neutrophils % Seg Neuts % (Manual) Lymphocytes % (Manual) Monocytes % (Manual) Eosinophils % (Manual) Basophils % (Manual) Nucleated RBC % Seg Neutrophils # Seg Neutrophils # Man Lymphocytes # (Manual) Monocytes # (Manual) Eosinophils # (Manual) Basophils # (Manual) PT INR Fibrinogen dRVVT Confirm Interp Factor V Activity POC ABG pH POC ABG pCO2 POC ABG pO2 ABG pO2 ABG HCO3 ABG Base Excess ABG Hemoglobin Oxyhemoglobin Sodium Potassium Chloride Carbon Dioxide BUN Creatinine Glucose POC Glucose 116 H 130 H Lactic Acid Calcium Ionized Calcium Phosphorus Magnesium Direct Bilirubin AST ALT Alkaline Phosphatase Lactate Dehydrogenase Troponin T C-Reactive Protein 19.40 H Total Protein Albumin Prealbumin Triglycerides Cholesterol LDL Cholesterol Direct HDL Cholesterol 25-OH Vitamin D Total PTH Intact Urine pH Urine WBC (Auto) Urine Creatinine Urine Total Protein Fluid Total Protein Vancomycin Trough Rheumatoid Factor Complement C4 Miscellaneous Test Crossmatch 10/07/16 10/08/16 10/08/16 18:30 00:00 04:00 WBC RBC Hgb Hct MCV MCH MCHC RDW Plt Count Lymph % (Auto) [place] % (Auto) Lymph # [place] # Baso # Seg Neutrophils % Seg Neuts % (Manual) Lymphocytes % (Manual) Monocytes % (Manual) Eosinophils % (Manual) Basophils % (Manual) Nucleated RBC % Seg Neutrophils # Seg Neutrophils # Man Lymphocytes # (Manual) Monocytes # (Manual) Eosinophils # (Manual) Basophils # (Manual) PT INR Fibrinogen dRVVT Confirm Interp Factor V Activity POC ABG pH POC ABG pCO2 POC ABG pO2 ABG pO2 ABG HCO3 ABG Base Excess ABG Hemoglobin Oxyhemoglobin Sodium 132 L Potassium 3.3 L Chloride 93.6 L Carbon Dioxide 17 L BUN 59 H Creatinine 2.7 H Glucose 121 H POC Glucose 122 H Lactic Acid Calcium 7.6 L Ionized Calcium Phosphorus Magnesium Direct Bilirubin AST ALT Alkaline Phosphatase Lactate Dehydrogenase Troponin T C-Reactive Protein Total Protein Albumin Prealbumin Triglycerides Cholesterol LDL Cholesterol Direct HDL Cholesterol 25-OH Vitamin D Total PTH Intact Urine pH Urine WBC (Auto) > 182.0 H Urine Creatinine Urine Total Protein Fluid Total Protein Vancomycin Trough Rheumatoid Factor Complement C4 Miscellaneous Test Crossmatch 10/08/16 10/08/16 10/08/16 04:30 05:30 11:51 WBC RBC 5.15 H Hgb 14.4 H D Hct 44.5 H D MCV MCH MCHC RDW 19.5 H Plt Count 56 L Lymph % (Auto) [place] % (Auto) Lymph # [place] # Baso # Seg Neutrophils % Seg Neuts % (Manual) 24.0 L Lymphocytes % (Manual) 8.0 L Monocytes % (Manual) Eosinophils % (Manual) Basophils % (Manual) Nucleated RBC % 9.0 H Seg Neutrophils # Seg Neutrophils # Man Lymphocytes # (Manual) 0.7 L Monocytes # (Manual) Eosinophils # (Manual) Basophils # (Manual) PT INR Fibrinogen dRVVT Confirm Interp Factor V Activity POC ABG pH POC ABG pCO2 POC ABG pO2 ABG pO2 ABG HCO3 ABG Base Excess ABG Hemoglobin Oxyhemoglobin Sodium Potassium Chloride Carbon Dioxide BUN Creatinine Glucose POC Glucose 125 H 150 H Lactic Acid Calcium Ionized Calcium Phosphorus Magnesium Direct Bilirubin AST ALT Alkaline Phosphatase Lactate Dehydrogenase Troponin T C-Reactive Protein Total Protein Albumin Prealbumin Triglycerides Cholesterol LDL Cholesterol Direct HDL Cholesterol 25-OH Vitamin D Total PTH Intact Urine pH Urine WBC (Auto) Urine Creatinine Urine Total Protein Fluid Total Protein Vancomycin Trough Rheumatoid Factor Complement C4 Miscellaneous Test Crossmatch 10/08/16 10/08/16 10/08/16 12:49 17:07 19:30 WBC RBC Hgb 7.1 L D Hct 22.4 L D MCV MCH MCHC RDW Plt Count Lymph % (Auto) [place] % (Auto) Lymph # [place] # Baso # Seg Neutrophils % Seg Neuts % (Manual) Lymphocytes % (Manual) Monocytes % (Manual) Eosinophils % (Manual) Basophils % (Manual) Nucleated RBC % Seg Neutrophils # Seg Neutrophils # Man Lymphocytes # (Manual) Monocytes # (Manual) Eosinophils # (Manual) Basophils # (Manual) PT INR Fibrinogen dRVVT Confirm Interp Factor V Activity POC ABG pH POC ABG pCO2 28.2 L POC ABG pO2 111 H ABG pO2 ABG HCO3 ABG Base Excess ABG Hemoglobin Oxyhemoglobin Sodium Potassium Chloride Carbon Dioxide BUN Creatinine Glucose POC Glucose 145 H Lactic Acid Calcium Ionized Calcium Phosphorus Magnesium Direct Bilirubin AST ALT Alkaline Phosphatase Lactate Dehydrogenase Troponin T C-Reactive Protein Total Protein Albumin Prealbumin Triglycerides Cholesterol LDL Cholesterol Direct HDL Cholesterol 25-OH Vitamin D Total PTH Intact Urine pH Urine WBC (Auto) Urine Creatinine Urine Total Protein Fluid Total Protein Vancomycin Trough Rheumatoid Factor Complement C4 Miscellaneous Test Crossmatch 10/08/16 10/09/16 10/09/16 19:30 03:45 03:45 WBC 12.6 H RBC 2.36 L Hgb 6.7 L Hct 21.1 L MCV MCH MCHC RDW 19.5 H Plt Count 75 L Lymph % (Auto) [place] % (Auto) Lymph # [place] # Baso # Seg Neutrophils % Seg Neuts % (Manual) Lymphocytes % (Manual) Monocytes % (Manual) 10.0 H Eosinophils % (Manual) Basophils % (Manual) Nucleated RBC % 3.0 H Seg Neutrophils # Seg Neutrophils # Man Lymphocytes # (Manual) Monocytes # (Manual) 1.3 H Eosinophils # (Manual) Basophils # (Manual) PT 18.0 H INR 1.41 H Fibrinogen dRVVT Confirm Interp Factor V Activity POC ABG pH POC ABG pCO2 POC ABG pO2 ABG pO2 ABG HCO3 ABG Base Excess ABG Hemoglobin Oxyhemoglobin Sodium 135 L Potassium Chloride Carbon Dioxide 17 L BUN 81 H Creatinine 3.2 H Glucose 109 H POC Glucose Lactic Acid Calcium 7.4 L Ionized Calcium Phosphorus 4.60 H D Magnesium Direct Bilirubin AST ALT Alkaline Phosphatase Lactate Dehydrogenase Troponin T C-Reactive Protein Total Protein Albumin Prealbumin Triglycerides Cholesterol LDL Cholesterol Direct HDL Cholesterol 25-OH Vitamin D Total PTH Intact Urine pH Urine WBC (Auto) Urine Creatinine Urine Total Protein Fluid Total Protein Vancomycin Trough Rheumatoid Factor Complement C4 Miscellaneous Test Crossmatch 10/09/16 10/09/16 10/09/16 03:45 05:14 07:20 WBC RBC Hgb Hct MCV MCH MCHC RDW Plt Count Lymph % (Auto) [place] % (Auto) Lymph # [place] # Baso # Seg Neutrophils % Seg Neuts % (Manual) Lymphocytes % (Manual) Monocytes % (Manual) Eosinophils % (Manual) Basophils % (Manual) Nucleated RBC % Seg Neutrophils # Seg Neutrophils # Man Lymphocytes # (Manual) Monocytes # (Manual) Eosinophils # (Manual) Basophils # (Manual) PT 19.0 H INR 1.51 H Fibrinogen dRVVT Confirm Interp Factor V Activity POC ABG pH POC ABG pCO2 POC ABG pO2 ABG pO2 ABG HCO3 ABG Base Excess ABG Hemoglobin Oxyhemoglobin Sodium Potassium Chloride Carbon Dioxide BUN Creatinine Glucose POC Glucose 151 H Lactic Acid Calcium Ionized Calcium Phosphorus Magnesium Direct Bilirubin AST ALT Alkaline Phosphatase Lactate Dehydrogenase Troponin T C-Reactive Protein Total Protein Albumin Prealbumin Triglycerides Cholesterol LDL Cholesterol Direct HDL Cholesterol 25-OH Vitamin D Total PTH Intact Urine pH Urine WBC (Auto) Urine Creatinine Urine Total Protein Fluid Total Protein Vancomycin Trough Rheumatoid Factor Complement C4 Miscellaneous Test Crossmatch See Detail 10/09/16 10/09/16 10/09/16 11:46 16:20 16:43 WBC RBC Hgb 7.2 L Hct 22.2 L MCV MCH MCHC RDW Plt Count Lymph % (Auto) [place] % (Auto) Lymph # [place] # Baso # Seg Neutrophils % Seg Neuts % (Manual) Lymphocytes % (Manual) Monocytes % (Manual) Eosinophils % (Manual) Basophils % (Manual) Nucleated RBC % Seg Neutrophils # Seg Neutrophils # Man Lymphocytes # (Manual) Monocytes # (Manual) Eosinophils # (Manual) Basophils # (Manual) PT INR Fibrinogen dRVVT Confirm Interp Factor V Activity POC ABG pH POC ABG pCO2 POC ABG pO2 ABG pO2 ABG HCO3 ABG Base Excess ABG Hemoglobin Oxyhemoglobin Sodium Potassium Chloride Carbon Dioxide BUN Creatinine Glucose POC Glucose 133 H 141 H Lactic Acid Calcium Ionized Calcium Phosphorus Magnesium Direct Bilirubin AST ALT Alkaline Phosphatase Lactate Dehydrogenase Troponin T C-Reactive Protein Total Protein Albumin Prealbumin Triglycerides Cholesterol LDL Cholesterol Direct HDL Cholesterol 25-OH Vitamin D Total PTH Intact Urine pH Urine WBC (Auto) Urine Creatinine Urine Total Protein Fluid Total Protein Vancomycin Trough Rheumatoid Factor Complement C4 Miscellaneous Test Crossmatch 10/10/16 10/10/16 10/10/16 05:00 05:00 11:19 WBC 18.5 H RBC 2.19 L Hgb 6.4 L Hct 19.6 L* MCV MCH MCHC RDW 19.3 H Plt Count 93 L Lymph % (Auto) [place] % (Auto) Lymph # [place] # Baso # Seg Neutrophils % Seg Neuts % (Manual) Lymphocytes % (Manual) 10.0 L Monocytes % (Manual) Eosinophils % (Manual) Basophils % (Manual) Nucleated RBC % 4.0 H Seg Neutrophils # Seg Neutrophils # Man 11.3 H Lymphocytes # (Manual) Monocytes # (Manual) Eosinophils # (Manual) Basophils # (Manual) PT INR Fibrinogen dRVVT Confirm Interp Factor V Activity POC ABG pH POC ABG pCO2 POC ABG pO2 ABG pO2 ABG HCO3 ABG Base Excess ABG Hemoglobin Oxyhemoglobin Sodium Potassium 5.7 H D Chloride Carbon Dioxide 16 L BUN 94 H Creatinine 3.1 H Glucose 131 H POC Glucose 153 H Lactic Acid Calcium 8.2 L Ionized Calcium Phosphorus 5.10 H Magnesium 2.40 H Direct Bilirubin 0.3 H AST ALT < 5 L Alkaline Phosphatase 319 H Lactate Dehydrogenase Troponin T C-Reactive Protein Total Protein 5.1 L Albumin 1.0 L Prealbumin Triglycerides Cholesterol LDL Cholesterol Direct HDL Cholesterol 25-OH Vitamin D Total PTH Intact Urine pH Urine WBC (Auto) Urine Creatinine Urine Total Protein Fluid Total Protein Vancomycin Trough Rheumatoid Factor Complement C4 Miscellaneous Test Crossmatch 10/10/16 10/10/16 10/11/16 17:50 23:30 04:15 WBC RBC Hgb Hct MCV MCH MCHC RDW Plt Count Lymph % (Auto) [place] % (Auto) Lymph # [place] # Baso # Seg Neutrophils % Seg Neuts % (Manual) Lymphocytes % (Manual) Monocytes % (Manual) Eosinophils % (Manual) Basophils % (Manual) Nucleated RBC % Seg Neutrophils # Seg Neutrophils # Man Lymphocytes # (Manual) Monocytes # (Manual) Eosinophils # (Manual) Basophils # (Manual) PT INR Fibrinogen dRVVT Confirm Interp Factor V Activity POC ABG pH POC ABG pCO2 POC ABG pO2 ABG pO2 ABG HCO3 ABG Base Excess ABG Hemoglobin Oxyhemoglobin Sodium Potassium Chloride 96.4 L Carbon Dioxide 21 L BUN 57 H Creatinine 2.1 H Glucose 151 H POC Glucose 146 H 141 H Lactic Acid Calcium 8.3 L Ionized Calcium Phosphorus Magnesium Direct Bilirubin AST ALT Alkaline Phosphatase Lactate Dehydrogenase Troponin T C-Reactive Protein Total Protein Albumin Prealbumin Triglycerides Cholesterol LDL Cholesterol Direct HDL Cholesterol 25-OH Vitamin D Total PTH Intact Urine pH Urine WBC (Auto) Urine Creatinine Urine Total Protein Fluid Total Protein Vancomycin Trough Rheumatoid Factor Complement C4 Miscellaneous Test Crossmatch 10/11/16 10/11/16 10/11/16 04:15 04:15 05:30 WBC 28.3 H RBC 3.12 L Hgb 9.3 L Hct 28.7 L D MCV MCH MCHC RDW 17.7 H Plt Count 128 L Lymph % (Auto) [place] % (Auto) Lymph # [place] # Baso # Seg Neutrophils % Seg Neuts % (Manual) Lymphocytes % (Manual) Monocytes % (Manual) Eosinophils % (Manual) Basophils % (Manual) Nucleated RBC % Seg Neutrophils # Seg Neutrophils # Man Lymphocytes # (Manual) Monocytes # (Manual) Eosinophils # (Manual) Basophils # (Manual) PT INR Fibrinogen dRVVT Confirm Interp Factor V Activity POC ABG pH POC ABG pCO2 POC ABG pO2 ABG pO2 ABG HCO3 ABG Base Excess ABG Hemoglobin Oxyhemoglobin Sodium Potassium Chloride Carbon Dioxide BUN Creatinine Glucose POC Glucose 167 H Lactic Acid Calcium Ionized Calcium Phosphorus Magnesium Direct Bilirubin AST ALT Alkaline Phosphatase Lactate Dehydrogenase Troponin T C-Reactive Protein 15.80 H Total Protein Albumin Prealbumin Triglycerides Cholesterol LDL Cholesterol Direct HDL Cholesterol 25-OH Vitamin D Total PTH Intact Urine pH Urine WBC (Auto) Urine Creatinine Urine Total Protein Fluid Total Protein Vancomycin Trough Rheumatoid Factor Complement C4 Miscellaneous Test Crossmatch 10/11/16 10/11/16 10/11/16 11:40 15:49 23:57 WBC RBC Hgb Hct MCV MCH MCHC RDW Plt Count Lymph % (Auto) [place] % (Auto) Lymph # [place] # Baso # Seg Neutrophils % Seg Neuts % (Manual) Lymphocytes % (Manual) Monocytes % (Manual) Eosinophils % (Manual) Basophils % (Manual) Nucleated RBC % Seg Neutrophils # Seg Neutrophils # Man Lymphocytes # (Manual) Monocytes # (Manual) Eosinophils # (Manual) Basophils # (Manual) PT INR Fibrinogen dRVVT Confirm Interp Factor V Activity POC ABG pH POC ABG pCO2 POC ABG pO2 ABG pO2 ABG HCO3 ABG Base Excess ABG Hemoglobin Oxyhemoglobin Sodium Potassium Chloride Carbon Dioxide BUN Creatinine Glucose POC Glucose 139 H 168 H 161 H Lactic Acid Calcium Ionized Calcium Phosphorus Magnesium Direct Bilirubin AST ALT Alkaline Phosphatase Lactate Dehydrogenase Troponin T C-Reactive Protein Total Protein Albumin Prealbumin Triglycerides Cholesterol LDL Cholesterol Direct HDL Cholesterol 25-OH Vitamin D Total PTH Intact Urine pH Urine WBC (Auto) Urine Creatinine Urine Total Protein Fluid Total Protein Vancomycin Trough Rheumatoid Factor Complement C4 Miscellaneous Test Crossmatch 10/12/16 10/12/16 10/12/16 04:40 04:40 05:44 WBC 22.5 H RBC 2.88 L Hgb 8.8 L Hct 26.8 L MCV MCH MCHC RDW 17.8 H Plt Count Lymph % (Auto) [place] % (Auto) Lymph # [place] # Baso # Seg Neutrophils % Seg Neuts % (Manual) Lymphocytes % (Manual) Monocytes % (Manual) Eosinophils % (Manual) Basophils % (Manual) Nucleated RBC % Seg Neutrophils # Seg Neutrophils # Man Lymphocytes # (Manual) Monocytes # (Manual) Eosinophils # (Manual) Basophils # (Manual) PT INR Fibrinogen dRVVT Confirm Interp Factor V Activity POC ABG pH POC ABG pCO2 POC ABG pO2 ABG pO2 ABG HCO3 ABG Base Excess ABG Hemoglobin Oxyhemoglobin Sodium 134 L Potassium Chloride 93.0 L Carbon Dioxide BUN 74 H Creatinine 2.5 H Glucose 137 H POC Glucose 158 H Lactic Acid Calcium 8.2 L Ionized Calcium Phosphorus Magnesium Direct Bilirubin AST ALT Alkaline Phosphatase Lactate Dehydrogenase Troponin T C-Reactive Protein Total Protein Albumin Prealbumin Triglycerides Cholesterol LDL Cholesterol Direct HDL Cholesterol 25-OH Vitamin D Total PTH Intact Urine pH Urine WBC (Auto) Urine Creatinine Urine Total Protein Fluid Total Protein Vancomycin Trough Rheumatoid Factor Complement C4 Miscellaneous Test Crossmatch 10/12/16 10/12/16 10/12/16 12:27 18:18 23:46 WBC RBC Hgb Hct MCV MCH MCHC RDW Plt Count Lymph % (Auto) [place] % (Auto) Lymph # [place] # Baso # Seg Neutrophils % Seg Neuts % (Manual) Lymphocytes % (Manual) Monocytes % (Manual) Eosinophils % (Manual) Basophils % (Manual) Nucleated RBC % Seg Neutrophils # Seg Neutrophils # Man Lymphocytes # (Manual) Monocytes # (Manual) Eosinophils # (Manual) Basophils # (Manual) PT INR Fibrinogen dRVVT Confirm Interp Factor V Activity POC ABG pH POC ABG pCO2 POC ABG pO2 ABG pO2 ABG HCO3 ABG Base Excess ABG Hemoglobin Oxyhemoglobin Sodium Potassium Chloride Carbon Dioxide BUN Creatinine Glucose POC Glucose 153 H 140 H 150 H Lactic Acid Calcium Ionized Calcium Phosphorus Magnesium Direct Bilirubin AST ALT Alkaline Phosphatase Lactate Dehydrogenase Troponin T C-Reactive Protein Total Protein Albumin Prealbumin Triglycerides Cholesterol LDL Cholesterol Direct HDL Cholesterol 25-OH Vitamin D Total PTH Intact Urine pH Urine WBC (Auto) Urine Creatinine Urine Total Protein Fluid Total Protein Vancomycin Trough Rheumatoid Factor Complement C4 Miscellaneous Test Crossmatch 10/13/16 10/13/16 10/13/16 06:22 09:20 12:29 WBC RBC Hgb Hct MCV MCH MCHC RDW Plt Count Lymph % (Auto) [place] % (Auto) Lymph # [place] # Baso # Seg Neutrophils % Seg Neuts % (Manual) Lymphocytes % (Manual) Monocytes % (Manual) Eosinophils % (Manual) Basophils % (Manual) Nucleated RBC % Seg Neutrophils # Seg Neutrophils # Man Lymphocytes # (Manual) Monocytes # (Manual) Eosinophils # (Manual) Basophils # (Manual) PT INR Fibrinogen dRVVT Confirm Interp Factor V Activity POC ABG pH POC ABG pCO2 POC ABG pO2 ABG pO2 ABG HCO3 ABG Base Excess ABG Hemoglobin Oxyhemoglobin Sodium Potassium Chloride Carbon Dioxide BUN Creatinine Glucose POC Glucose 165 H 193 H Lactic Acid Calcium Ionized Calcium Phosphorus Magnesium Direct Bilirubin AST ALT Alkaline Phosphatase Lactate Dehydrogenase Troponin T C-Reactive Protein Total Protein Albumin Prealbumin Triglycerides Cholesterol LDL Cholesterol Direct HDL Cholesterol 25-OH Vitamin D Total PTH Intact Urine pH Urine WBC (Auto) Urine Creatinine Urine Total Protein Fluid Total Protein Vancomycin Trough Rheumatoid Factor Complement C4 Miscellaneous Test Flexitest 1 H Crossmatch 10/13/16 10/13/16 10/13/16 18:09 Unknown Unknown WBC 23.4 H RBC 2.83 L Hgb 8.7 L Hct 26.1 L MCV MCH MCHC RDW 18.1 H Plt Count Lymph % (Auto) [place] % (Auto) Lymph # [place] # Baso # Seg Neutrophils % Seg Neuts % (Manual) Lymphocytes % (Manual) Monocytes % (Manual) Eosinophils % (Manual) Basophils % (Manual) Nucleated RBC % Seg Neutrophils # Seg Neutrophils # Man Lymphocytes # (Manual) Monocytes # (Manual) Eosinophils # (Manual) Basophils # (Manual) PT INR Fibrinogen dRVVT Confirm Interp Factor V Activity POC ABG pH POC ABG pCO2 POC ABG pO2 ABG pO2 ABG HCO3 ABG Base Excess ABG Hemoglobin Oxyhemoglobin Sodium Potassium Chloride 95.8 L Carbon Dioxide BUN 82 H Creatinine 2.6 H Glucose 152 H POC Glucose 166 H Lactic Acid Calcium Ionized Calcium Phosphorus Magnesium Direct Bilirubin AST ALT Alkaline Phosphatase Lactate Dehydrogenase Troponin T C-Reactive Protein Total Protein Albumin Prealbumin Triglycerides Cholesterol LDL Cholesterol Direct HDL Cholesterol 25-OH Vitamin D Total PTH Intact Urine pH Urine WBC (Auto) Urine Creatinine Urine Total Protein Fluid Total Protein Vancomycin Trough Rheumatoid Factor Complement C4 Miscellaneous Test Crossmatch 10/14/16 10/14/16 10/14/16 05:38 06:35 08:10 WBC 20.7 H RBC 2.81 L Hgb 8.4 L Hct 27.2 L MCV MCH MCHC RDW 19.4 H Plt Count Lymph % (Auto) [place] % (Auto) Lymph # [place] # Baso # Seg Neutrophils % Seg Neuts % (Manual) Lymphocytes % (Manual) Monocytes % (Manual) Eosinophils % (Manual) Basophils % (Manual) Nucleated RBC % Seg Neutrophils # Seg Neutrophils # Man Lymphocytes # (Manual) Monocytes # (Manual) Eosinophils # (Manual) Basophils # (Manual) PT INR Fibrinogen dRVVT Confirm Interp Factor V Activity POC ABG pH POC ABG pCO2 POC ABG pO2 ABG pO2 ABG HCO3 ABG Base Excess ABG Hemoglobin Oxyhemoglobin Sodium Potassium Chloride Carbon Dioxide BUN 58 H Creatinine 1.9 H Glucose 169 H POC Glucose 195 H Lactic Acid Calcium Ionized Calcium Phosphorus Magnesium Direct Bilirubin AST ALT Alkaline Phosphatase Lactate Dehydrogenase Troponin T C-Reactive Protein Total Protein Albumin Prealbumin Triglycerides Cholesterol LDL Cholesterol Direct HDL Cholesterol 25-OH Vitamin D Total PTH Intact Urine pH Urine WBC (Auto) Urine Creatinine Urine Total Protein Fluid Total Protein Vancomycin Trough Rheumatoid Factor Complement C4 Miscellaneous Test Crossmatch 10/14/16 10/14/16 10/14/16 11:44 17:13 23:28 WBC RBC Hgb Hct MCV MCH MCHC RDW Plt Count Lymph % (Auto) [place] % (Auto) Lymph # [place] # Baso # Seg Neutrophils % Seg Neuts % (Manual) Lymphocytes % (Manual) Monocytes % (Manual) Eosinophils % (Manual) Basophils % (Manual) Nucleated RBC % Seg Neutrophils # Seg Neutrophils # Man Lymphocytes # (Manual) Monocytes # (Manual) Eosinophils # (Manual) Basophils # (Manual) PT INR Fibrinogen dRVVT Confirm Interp Factor V Activity POC ABG pH POC ABG pCO2 POC ABG pO2 ABG pO2 ABG HCO3 ABG Base Excess ABG Hemoglobin Oxyhemoglobin Sodium Potassium Chloride Carbon Dioxide BUN Creatinine Glucose POC Glucose 174 H 121 H 151 H Lactic Acid Calcium Ionized Calcium Phosphorus Magnesium Direct Bilirubin AST ALT Alkaline Phosphatase Lactate Dehydrogenase Troponin T C-Reactive Protein Total Protein Albumin Prealbumin Triglycerides Cholesterol LDL Cholesterol Direct HDL Cholesterol 25-OH Vitamin D Total PTH Intact Urine pH Urine WBC (Auto) Urine Creatinine Urine Total Protein Fluid Total Protein Vancomycin Trough Rheumatoid Factor Complement C4 Miscellaneous Test Crossmatch 10/15/16 10/15/16 10/15/16 05:06 12:26 17:48 WBC RBC Hgb Hct MCV MCH MCHC RDW Plt Count Lymph % (Auto) [place] % (Auto) Lymph # [place] # Baso # Seg Neutrophils % Seg Neuts % (Manual) Lymphocytes % (Manual) Monocytes % (Manual) Eosinophils % (Manual) Basophils % (Manual) Nucleated RBC % Seg Neutrophils # Seg Neutrophils # Man Lymphocytes # (Manual) Monocytes # (Manual) Eosinophils # (Manual) Basophils # (Manual) PT INR Fibrinogen dRVVT Confirm Interp Factor V Activity POC ABG pH POC ABG pCO2 POC ABG pO2 ABG pO2 ABG HCO3 ABG Base Excess ABG Hemoglobin Oxyhemoglobin Sodium Potassium Chloride Carbon Dioxide BUN Creatinine Glucose POC Glucose 151 H 149 H 153 H Lactic Acid Calcium Ionized Calcium Phosphorus Magnesium Direct Bilirubin AST ALT Alkaline Phosphatase Lactate Dehydrogenase Troponin T C-Reactive Protein Total Protein Albumin Prealbumin Triglycerides Cholesterol LDL Cholesterol Direct HDL Cholesterol 25-OH Vitamin D Total PTH Intact Urine pH Urine WBC (Auto) Urine Creatinine Urine Total Protein Fluid Total Protein Vancomycin Trough Rheumatoid Factor Complement C4 Miscellaneous Test Crossmatch 10/15/16 10/15/16 10/16/16 Unknown Unknown 00:02 WBC 23.4 H RBC 2.78 L Hgb 8.5 L Hct 25.7 L MCV MCH MCHC RDW 18.7 H Plt Count Lymph % (Auto) [place] % (Auto) Lymph # [place] # Baso # Seg Neutrophils % Seg Neuts % (Manual) Lymphocytes % (Manual) Monocytes % (Manual) Eosinophils % (Manual) Basophils % (Manual) Nucleated RBC % Seg Neutrophils # Seg Neutrophils # Man Lymphocytes # (Manual) Monocytes # (Manual) Eosinophils # (Manual) Basophils # (Manual) PT INR Fibrinogen dRVVT Confirm Interp Factor V Activity POC ABG pH POC ABG pCO2 POC ABG pO2 ABG pO2 ABG HCO3 ABG Base Excess ABG Hemoglobin Oxyhemoglobin Sodium Potassium Chloride Carbon Dioxide BUN 73 H Creatinine 2.3 H Glucose 120 H POC Glucose 137 H Lactic Acid Calcium Ionized Calcium Phosphorus Magnesium Direct Bilirubin AST ALT Alkaline Phosphatase Lactate Dehydrogenase Troponin T C-Reactive Protein Total Protein Albumin Prealbumin Triglycerides Cholesterol LDL Cholesterol Direct HDL Cholesterol 25-OH Vitamin D Total PTH Intact Urine pH Urine WBC (Auto) Urine Creatinine Urine Total Protein Fluid Total Protein Vancomycin Trough Rheumatoid Factor Complement C4 Miscellaneous Test Crossmatch 10/16/16 10/16/16 10/16/16 05:44 06:25 06:25 WBC 22.5 H RBC 2.76 L Hgb 8.3 L Hct 25.2 L MCV MCH MCHC RDW 18.3 H Plt Count Lymph % (Auto) [place] % (Auto) Lymph # [place] # Baso # Seg Neutrophils % Seg Neuts % (Manual) Lymphocytes % (Manual) Monocytes % (Manual) Eosinophils % (Manual) Basophils % (Manual) Nucleated RBC % Seg Neutrophils # Seg Neutrophils # Man Lymphocytes # (Manual) Monocytes # (Manual) Eosinophils # (Manual) Basophils # (Manual) PT INR Fibrinogen dRVVT Confirm Interp Factor V Activity POC ABG pH POC ABG pCO2 POC ABG pO2 ABG pO2 ABG HCO3 ABG Base Excess ABG Hemoglobin Oxyhemoglobin Sodium Potassium Chloride Carbon Dioxide BUN 92 H Creatinine 3.0 H Glucose 138 H POC Glucose 110 H Lactic Acid Calcium Ionized Calcium Phosphorus Magnesium Direct Bilirubin AST ALT Alkaline Phosphatase Lactate Dehydrogenase Troponin T C-Reactive Protein Total Protein Albumin Prealbumin Triglycerides Cholesterol LDL Cholesterol Direct HDL Cholesterol 25-OH Vitamin D Total PTH Intact Urine pH Urine WBC (Auto) Urine Creatinine Urine Total Protein Fluid Total Protein Vancomycin Trough Rheumatoid Factor Complement C4 Miscellaneous Test Crossmatch 10/16/16 10/16/16 10/16/16 11:27 11:48 17:36 WBC RBC Hgb Hct MCV MCH MCHC RDW Plt Count Lymph % (Auto) [place] % (Auto) Lymph # [place] # Baso # Seg Neutrophils % Seg Neuts % (Manual) Lymphocytes % (Manual) Monocytes % (Manual) Eosinophils % (Manual) Basophils % (Manual) Nucleated RBC % Seg Neutrophils # Seg Neutrophils # Man Lymphocytes # (Manual) Monocytes # (Manual) Eosinophils # (Manual) Basophils # (Manual) PT INR Fibrinogen dRVVT Confirm Interp Factor V Activity POC ABG pH 7.582 H POC ABG pCO2 27.4 L POC ABG pO2 110 H ABG pO2 ABG HCO3 ABG Base Excess ABG Hemoglobin Oxyhemoglobin Sodium Potassium Chloride Carbon Dioxide BUN Creatinine Glucose POC Glucose 121 H 133 H Lactic Acid Calcium Ionized Calcium Phosphorus Magnesium Direct Bilirubin AST ALT Alkaline Phosphatase Lactate Dehydrogenase Troponin T C-Reactive Protein Total Protein Albumin Prealbumin Triglycerides Cholesterol LDL Cholesterol Direct HDL Cholesterol 25-OH Vitamin D Total PTH Intact Urine pH Urine WBC (Auto) Urine Creatinine Urine Total Protein Fluid Total Protein Vancomycin Trough Rheumatoid Factor Complement C4 Miscellaneous Test Crossmatch 10/16/16 10/17/16 10/17/16 20:48 04:24 04:24 WBC 21.4 H RBC 2.72 L Hgb 8.0 L Hct 25.2 L MCV MCH MCHC RDW 18.0 H Plt Count Lymph % (Auto) [place] % (Auto) Lymph # [place] # Baso # Seg Neutrophils % Seg Neuts % (Manual) Lymphocytes % (Manual) Monocytes % (Manual) Eosinophils % (Manual) Basophils % (Manual) Nucleated RBC % Seg Neutrophils # Seg Neutrophils # Man Lymphocytes # (Manual) Monocytes # (Manual) Eosinophils # (Manual) Basophils # (Manual) PT INR Fibrinogen dRVVT Confirm Interp Factor V Activity POC ABG pH 7.561 H POC ABG pCO2 24.4 L POC ABG pO2 77 L ABG pO2 ABG HCO3 ABG Base Excess ABG Hemoglobin Oxyhemoglobin Sodium 148 H Potassium Chloride Carbon Dioxide BUN 104 H Creatinine 3.0 H Glucose 149 H POC Glucose Lactic Acid Calcium Ionized Calcium Phosphorus Magnesium Direct Bilirubin AST ALT Alkaline Phosphatase 138 H Lactate Dehydrogenase Troponin T C-Reactive Protein Total Protein 6.2 L Albumin 1.5 L Prealbumin Triglycerides Cholesterol LDL Cholesterol Direct HDL Cholesterol 25-OH Vitamin D Total PTH Intact Urine pH Urine WBC (Auto) Urine Creatinine Urine Total Protein Fluid Total Protein Vancomycin Trough Rheumatoid Factor Complement C4 Miscellaneous Test Crossmatch 10/17/16 10/17/16 10/17/16 06:02 12:17 17:14 WBC RBC Hgb Hct MCV MCH MCHC RDW Plt Count Lymph % (Auto) [place] % (Auto) Lymph # [place] # Baso # Seg Neutrophils % Seg Neuts % (Manual) Lymphocytes % (Manual) Monocytes % (Manual) Eosinophils % (Manual) Basophils % (Manual) Nucleated RBC % Seg Neutrophils # Seg Neutrophils # Man Lymphocytes # (Manual) Monocytes # (Manual) Eosinophils # (Manual) Basophils # (Manual) PT INR Fibrinogen dRVVT Confirm Interp Factor V Activity POC ABG pH POC ABG pCO2 POC ABG pO2 ABG pO2 ABG HCO3 ABG Base Excess ABG Hemoglobin Oxyhemoglobin Sodium Potassium Chloride Carbon Dioxide BUN Creatinine Glucose POC Glucose 170 H 167 H 126 H Lactic Acid Calcium Ionized Calcium Phosphorus Magnesium Direct Bilirubin AST ALT Alkaline Phosphatase Lactate Dehydrogenase Troponin T C-Reactive Protein Total Protein Albumin Prealbumin Triglycerides Cholesterol LDL Cholesterol Direct HDL Cholesterol 25-OH Vitamin D Total PTH Intact Urine pH Urine WBC (Auto) Urine Creatinine Urine Total Protein Fluid Total Protein Vancomycin Trough Rheumatoid Factor Complement C4 Miscellaneous Test Crossmatch 10/17/16 10/18/16 10/18/16 23:17 04:00 04:00 WBC 20.7 H RBC 2.47 L Hgb 7.4 L Hct 22.9 L MCV MCH MCHC RDW 17.5 H Plt Count Lymph % (Auto) [place] % (Auto) Lymph # [place] # Baso # Seg Neutrophils % Seg Neuts % (Manual) Lymphocytes % (Manual) Monocytes % (Manual) Eosinophils % (Manual) Basophils % (Manual) Nucleated RBC % Seg Neutrophils # Seg Neutrophils # Man Lymphocytes # (Manual) Monocytes # (Manual) Eosinophils # (Manual) Basophils # (Manual) PT INR Fibrinogen dRVVT Confirm Interp Factor V Activity POC ABG pH POC ABG pCO2 POC ABG pO2 ABG pO2 ABG HCO3 ABG Base Excess ABG Hemoglobin Oxyhemoglobin Sodium 149 H Potassium Chloride 107.9 H Carbon Dioxide 20 L BUN 117 H Creatinine 3.2 H Glucose 119 H POC Glucose 121 H Lactic Acid Calcium Ionized Calcium Phosphorus Magnesium Direct Bilirubin AST ALT Alkaline Phosphatase Lactate Dehydrogenase Troponin T C-Reactive Protein Total Protein Albumin Prealbumin Triglycerides Cholesterol LDL Cholesterol Direct HDL Cholesterol 25-OH Vitamin D Total PTH Intact Urine pH Urine WBC (Auto) Urine Creatinine Urine Total Protein Fluid Total Protein Vancomycin Trough Rheumatoid Factor Complement C4 Miscellaneous Test Crossmatch 10/18/16 10/18/16 10/18/16 05:23 10:46 17:30 WBC RBC Hgb Hct MCV MCH MCHC RDW Plt Count Lymph % (Auto) [place] % (Auto) Lymph # [place] # Baso # Seg Neutrophils % Seg Neuts % (Manual) Lymphocytes % (Manual) Monocytes % (Manual) Eosinophils % (Manual) Basophils % (Manual) Nucleated RBC % Seg Neutrophils # Seg Neutrophils # Man Lymphocytes # (Manual) Monocytes # (Manual) Eosinophils # (Manual) Basophils # (Manual) PT INR Fibrinogen dRVVT Confirm Interp Factor V Activity POC ABG pH POC ABG pCO2 POC ABG pO2 ABG pO2 ABG HCO3 ABG Base Excess ABG Hemoglobin Oxyhemoglobin Sodium Potassium Chloride Carbon Dioxide BUN Creatinine Glucose POC Glucose 119 H 155 H 124 H Lactic Acid Calcium Ionized Calcium Phosphorus Magnesium Direct Bilirubin AST ALT Alkaline Phosphatase Lactate Dehydrogenase Troponin T C-Reactive Protein Total Protein Albumin Prealbumin Triglycerides Cholesterol LDL Cholesterol Direct HDL Cholesterol 25-OH Vitamin D Total PTH Intact Urine pH Urine WBC (Auto) Urine Creatinine Urine Total Protein Fluid Total Protein Vancomycin Trough Rheumatoid Factor Complement C4 Miscellaneous Test Crossmatch 10/19/16 10/19/16 10/19/16 04:00 04:00 05:25 WBC 17.4 H RBC 2.54 L Hgb 7.7 L Hct 23.6 L MCV MCH MCHC RDW 17.3 H Plt Count Lymph % (Auto) [place] % (Auto) Lymph # [place] # Baso # Seg Neutrophils % Seg Neuts % (Manual) Lymphocytes % (Manual) Monocytes % (Manual) Eosinophils % (Manual) Basophils % (Manual) Nucleated RBC % Seg Neutrophils # Seg Neutrophils # Man Lymphocytes # (Manual) Monocytes # (Manual) Eosinophils # (Manual) Basophils # (Manual) PT INR Fibrinogen dRVVT Confirm Interp Factor V Activity POC ABG pH POC ABG pCO2 POC ABG pO2 ABG pO2 ABG HCO3 ABG Base Excess ABG Hemoglobin Oxyhemoglobin Sodium Potassium Chloride Carbon Dioxide BUN 72 H Creatinine 2.1 H Glucose 116 H POC Glucose 119 H Lactic Acid Calcium Ionized Calcium Phosphorus Magnesium Direct Bilirubin AST ALT Alkaline Phosphatase Lactate Dehydrogenase Troponin T C-Reactive Protein Total Protein Albumin Prealbumin Triglycerides Cholesterol LDL Cholesterol Direct HDL Cholesterol 25-OH Vitamin D Total PTH Intact Urine pH Urine WBC (Auto) Urine Creatinine Urine Total Protein Fluid Total Protein Vancomycin Trough Rheumatoid Factor Complement C4 Miscellaneous Test Crossmatch 10/19/16 10/19/16 10/20/16 11:46 23:59 06:00 WBC RBC Hgb Hct MCV MCH MCHC RDW Plt Count Lymph % (Auto) [place] % (Auto) Lymph # [place] # Baso # Seg Neutrophils % Seg Neuts % (Manual) Lymphocytes % (Manual) Monocytes % (Manual) Eosinophils % (Manual) Basophils % (Manual) Nucleated RBC % Seg Neutrophils # Seg Neutrophils # Man Lymphocytes # (Manual) Monocytes # (Manual) Eosinophils # (Manual) Basophils # (Manual) PT INR Fibrinogen dRVVT Confirm Interp Factor V Activity POC ABG pH POC ABG pCO2 POC ABG pO2 ABG pO2 ABG HCO3 ABG Base Excess ABG Hemoglobin Oxyhemoglobin Sodium Potassium Chloride Carbon Dioxide 17 L BUN 94 H Creatinine 2.7 H Glucose POC Glucose 116 H 117 H Lactic Acid Calcium Ionized Calcium Phosphorus Magnesium Direct Bilirubin AST ALT Alkaline Phosphatase Lactate Dehydrogenase Troponin T C-Reactive Protein Total Protein Albumin Prealbumin Triglycerides Cholesterol LDL Cholesterol Direct HDL Cholesterol 25-OH Vitamin D Total PTH Intact Urine pH Urine WBC (Auto) Urine Creatinine Urine Total Protein Fluid Total Protein Vancomycin Trough Rheumatoid Factor Complement C4 Miscellaneous Test Crossmatch 10/20/16 10/20/16 10/20/16 06:00 11:49 16:00 WBC 19.7 H RBC 2.51 L Hgb 7.7 L Hct 23.5 L MCV MCH MCHC RDW 17.5 H Plt Count Lymph % (Auto) [place] % (Auto) Lymph # [place] # Baso # Seg Neutrophils % Seg Neuts % (Manual) Lymphocytes % (Manual) Monocytes % (Manual) Eosinophils % (Manual) Basophils % (Manual) Nucleated RBC % Seg Neutrophils # Seg Neutrophils # Man Lymphocytes # (Manual) Monocytes # (Manual) Eosinophils # (Manual) Basophils # (Manual) PT INR Fibrinogen dRVVT Confirm Interp Factor V Activity POC ABG pH POC ABG pCO2 POC ABG pO2 ABG pO2 ABG HCO3 ABG Base Excess ABG Hemoglobin Oxyhemoglobin Sodium Potassium Chloride Carbon Dioxide BUN Creatinine Glucose POC Glucose 117 H Lactic Acid Calcium Ionized Calcium Phosphorus Magnesium Direct Bilirubin AST ALT Alkaline Phosphatase Lactate Dehydrogenase Troponin T C-Reactive Protein Total Protein Albumin Prealbumin Triglycerides Cholesterol LDL Cholesterol Direct HDL Cholesterol 25-OH Vitamin D Total PTH Intact Urine pH Urine WBC (Auto) Urine Creatinine Urine Total Protein Fluid Total Protein Vancomycin Trough Rheumatoid Factor Complement C4 Miscellaneous Test Flexitest 1 H Crossmatch 10/20/16 10/20/16 10/21/16 18:36 23:39 04:00 WBC RBC Hgb Hct MCV MCH MCHC RDW Plt Count Lymph % (Auto) [place] % (Auto) Lymph # [place] # Baso # Seg Neutrophils % Seg Neuts % (Manual) Lymphocytes % (Manual) Monocytes % (Manual) Eosinophils % (Manual) Basophils % (Manual) Nucleated RBC % Seg Neutrophils # Seg Neutrophils # Man Lymphocytes # (Manual) Monocytes # (Manual) Eosinophils # (Manual) Basophils # (Manual) PT INR Fibrinogen dRVVT Confirm Interp Factor V Activity POC ABG pH POC ABG pCO2 POC ABG pO2 ABG pO2 ABG HCO3 ABG Base Excess ABG Hemoglobin Oxyhemoglobin Sodium Potassium 5.4 H D Chloride Carbon Dioxide 15 L BUN 110 H Creatinine 3.0 H Glucose POC Glucose 127 H 114 H Lactic Acid Calcium Ionized Calcium Phosphorus Magnesium Direct Bilirubin AST ALT Alkaline Phosphatase Lactate Dehydrogenase Troponin T C-Reactive Protein Total Protein Albumin Prealbumin Triglycerides Cholesterol LDL Cholesterol Direct HDL Cholesterol 25-OH Vitamin D Total PTH Intact Urine pH Urine WBC (Auto) Urine Creatinine Urine Total Protein Fluid Total Protein Vancomycin Trough Rheumatoid Factor Complement C4 Miscellaneous Test Crossmatch 10/21/16 10/21/16 10/22/16 05:54 23:46 05:18 WBC RBC Hgb Hct MCV MCH MCHC RDW Plt Count Lymph % (Auto) [place] % (Auto) Lymph # [place] # Baso # Seg Neutrophils % Seg Neuts % (Manual) Lymphocytes % (Manual) Monocytes % (Manual) Eosinophils % (Manual) Basophils % (Manual) Nucleated RBC % Seg Neutrophils # Seg Neutrophils # Man Lymphocytes # (Manual) Monocytes # (Manual) Eosinophils # (Manual) Basophils # (Manual) PT INR Fibrinogen dRVVT Confirm Interp Factor V Activity POC ABG pH POC ABG pCO2 POC ABG pO2 ABG pO2 ABG HCO3 ABG Base Excess ABG Hemoglobin Oxyhemoglobin Sodium Potassium Chloride Carbon Dioxide BUN Creatinine Glucose POC Glucose 119 H 108 H 109 H Lactic Acid Calcium Ionized Calcium Phosphorus Magnesium Direct Bilirubin AST ALT Alkaline Phosphatase Lactate Dehydrogenase Troponin T C-Reactive Protein Total Protein Albumin Prealbumin Triglycerides Cholesterol LDL Cholesterol Direct HDL Cholesterol 25-OH Vitamin D Total PTH Intact Urine pH Urine WBC (Auto) Urine Creatinine Urine Total Protein Fluid Total Protein Vancomycin Trough Rheumatoid Factor Complement C4 Miscellaneous Test Crossmatch 10/22/16 10/22/16 10/22/16 06:40 06:40 06:40 WBC 14.0 H RBC 2.03 L Hgb 7.0 L Hct 20.5 L MCV 98 H MCH 34 H MCHC 35 H RDW 17.8 H Plt Count Lymph % (Auto) [place] % (Auto) 9.9 H Lymph # [place] # 1.4 H Baso # 0.2 H Seg Neutrophils % 72.0 H Seg Neuts % (Manual) Lymphocytes % (Manual) Monocytes % (Manual) Eosinophils % (Manual) Basophils % (Manual) Nucleated RBC % Seg Neutrophils # 10.0 H Seg Neutrophils # Man Lymphocytes # (Manual) Monocytes # (Manual) Eosinophils # (Manual) Basophils # (Manual) PT INR Fibrinogen dRVVT Confirm Interp Factor V Activity POC ABG pH POC ABG pCO2 POC ABG pO2 ABG pO2 ABG HCO3 ABG Base Excess ABG Hemoglobin Oxyhemoglobin Sodium 130 L D Potassium Chloride 92.4 L Carbon Dioxide 20 L BUN 50 H Creatinine 1.6 H Glucose 589 H* POC Glucose Lactic Acid Calcium 7.8 L D Ionized Calcium Phosphorus Magnesium 1.60 L Direct Bilirubin AST ALT Alkaline Phosphatase Lactate Dehydrogenase Troponin T C-Reactive Protein Total Protein Albumin Prealbumin Triglycerides Cholesterol LDL Cholesterol Direct HDL Cholesterol 25-OH Vitamin D Total PTH Intact Urine pH Urine WBC (Auto) Urine Creatinine Urine Total Protein Fluid Total Protein Vancomycin Trough Rheumatoid Factor Complement C4 Miscellaneous Test Crossmatch 10/22/16 10/22/16 10/22/16 11:39 16:44 23:36 WBC RBC Hgb Hct MCV MCH MCHC RDW Plt Count Lymph % (Auto) [place] % (Auto) Lymph # [place] # Baso # Seg Neutrophils % Seg Neuts % (Manual) Lymphocytes % (Manual) Monocytes % (Manual) Eosinophils % (Manual) Basophils % (Manual) Nucleated RBC % Seg Neutrophils # Seg Neutrophils # Man Lymphocytes # (Manual) Monocytes # (Manual) Eosinophils # (Manual) Basophils # (Manual) PT INR Fibrinogen dRVVT Confirm Interp Factor V Activity POC ABG pH POC ABG pCO2 POC ABG pO2 ABG pO2 ABG HCO3 ABG Base Excess ABG Hemoglobin Oxyhemoglobin Sodium Potassium Chloride Carbon Dioxide BUN Creatinine Glucose POC Glucose 142 H 163 H 123 H Lactic Acid Calcium Ionized Calcium Phosphorus Magnesium Direct Bilirubin AST ALT Alkaline Phosphatase Lactate Dehydrogenase Troponin T C-Reactive Protein Total Protein Albumin Prealbumin Triglycerides Cholesterol LDL Cholesterol Direct HDL Cholesterol 25-OH Vitamin D Total PTH Intact Urine pH Urine WBC (Auto) Urine Creatinine Urine Total Protein Fluid Total Protein Vancomycin Trough Rheumatoid Factor Complement C4 Miscellaneous Test Crossmatch 10/23/16 10/23/16 10/23/16 04:58 06:00 12:12 WBC RBC Hgb Hct MCV MCH MCHC RDW Plt Count Lymph % (Auto) [place] % (Auto) Lymph # [place] # Baso # Seg Neutrophils % Seg Neuts % (Manual) Lymphocytes % (Manual) Monocytes % (Manual) Eosinophils % (Manual) Basophils % (Manual) Nucleated RBC % Seg Neutrophils # Seg Neutrophils # Man Lymphocytes # (Manual) Monocytes # (Manual) Eosinophils # (Manual) Basophils # (Manual) PT INR Fibrinogen dRVVT Confirm Interp Factor V Activity POC ABG pH POC ABG pCO2 POC ABG pO2 ABG pO2 ABG HCO3 ABG Base Excess ABG Hemoglobin Oxyhemoglobin Sodium 133 L Potassium 3.5 L Chloride 96.1 L Carbon Dioxide 18 L BUN 76 H Creatinine 2.1 H Glucose POC Glucose 133 H 138 H Lactic Acid Calcium 8.3 L Ionized Calcium Phosphorus Magnesium Direct Bilirubin AST ALT Alkaline Phosphatase Lactate Dehydrogenase Troponin T C-Reactive Protein Total Protein Albumin Prealbumin Triglycerides Cholesterol LDL Cholesterol Direct HDL Cholesterol 25-OH Vitamin D Total PTH Intact Urine pH Urine WBC (Auto) Urine Creatinine Urine Total Protein Fluid Total Protein Vancomycin Trough Rheumatoid Factor Complement C4 Miscellaneous Test Crossmatch 10/23/16 10/23/16 10/24/16 16:53 23:37 04:00 WBC RBC Hgb Hct MCV MCH MCHC RDW Plt Count Lymph % (Auto) [place] % (Auto) Lymph # [place] # Baso # Seg Neutrophils % Seg Neuts % (Manual) Lymphocytes % (Manual) Monocytes % (Manual) Eosinophils % (Manual) Basophils % (Manual) Nucleated RBC % Seg Neutrophils # Seg Neutrophils # Man Lymphocytes # (Manual) Monocytes # (Manual) Eosinophils # (Manual) Basophils # (Manual) PT INR Fibrinogen dRVVT Confirm Interp Factor V Activity POC ABG pH POC ABG pCO2 POC ABG pO2 ABG pO2 ABG HCO3 ABG Base Excess ABG Hemoglobin Oxyhemoglobin Sodium 131 L Potassium Chloride 94.5 L Carbon Dioxide 19 L BUN 97 H Creatinine 2.6 H Glucose 110 H POC Glucose 125 H 123 H Lactic Acid Calcium 8.3 L Ionized Calcium Phosphorus Magnesium Direct Bilirubin AST ALT Alkaline Phosphatase Lactate Dehydrogenase Troponin T C-Reactive Protein Total Protein Albumin Prealbumin Triglycerides Cholesterol LDL Cholesterol Direct HDL Cholesterol 25-OH Vitamin D Total PTH Intact Urine pH Urine WBC (Auto) Urine Creatinine Urine Total Protein Fluid Total Protein Vancomycin Trough Rheumatoid Factor Complement C4 Miscellaneous Test Crossmatch 10/24/16 10/24/16 10/24/16 07:49 11:39 17:52 WBC RBC Hgb 6.0 L Hct 19.7 L* MCV MCH MCHC RDW Plt Count Lymph % (Auto) [place] % (Auto) Lymph # [place] # Baso # Seg Neutrophils % Seg Neuts % (Manual) Lymphocytes % (Manual) Monocytes % (Manual) Eosinophils % (Manual) Basophils % (Manual) Nucleated RBC % Seg Neutrophils # Seg Neutrophils # Man Lymphocytes # (Manual) Monocytes # (Manual) Eosinophils # (Manual) Basophils # (Manual) PT INR Fibrinogen dRVVT Confirm Interp Factor V Activity POC ABG pH POC ABG pCO2 POC ABG pO2 ABG pO2 ABG HCO3 ABG Base Excess ABG Hemoglobin Oxyhemoglobin Sodium Potassium Chloride Carbon Dioxide BUN Creatinine Glucose POC Glucose 106 H 158 H Lactic Acid Calcium Ionized Calcium Phosphorus Magnesium Direct Bilirubin AST ALT Alkaline Phosphatase Lactate Dehydrogenase Troponin T C-Reactive Protein Total Protein Albumin Prealbumin Triglycerides Cholesterol LDL Cholesterol Direct HDL Cholesterol 25-OH Vitamin D Total PTH Intact Urine pH Urine WBC (Auto) Urine Creatinine Urine Total Protein Fluid Total Protein Vancomycin Trough Rheumatoid Factor Complement C4 Miscellaneous Test Crossmatch 10/24/16 10/24/16 10/24/16 20:00 22:27 Unknown WBC RBC Hgb 9.4 L D Hct 27.5 L D MCV MCH MCHC RDW Plt Count Lymph % (Auto) [place] % (Auto) Lymph # [place] # Baso # Seg Neutrophils % Seg Neuts % (Manual) Lymphocytes % (Manual) Monocytes % (Manual) Eosinophils % (Manual) Basophils % (Manual) Nucleated RBC % Seg Neutrophils # Seg Neutrophils # Man Lymphocytes # (Manual) Monocytes # (Manual) Eosinophils # (Manual) Basophils # (Manual) PT INR Fibrinogen dRVVT Confirm Interp Factor V Activity POC ABG pH POC ABG pCO2 POC ABG pO2 ABG pO2 ABG HCO3 ABG Base Excess ABG Hemoglobin Oxyhemoglobin Sodium Potassium Chloride Carbon Dioxide BUN Creatinine Glucose POC Glucose 125 H Lactic Acid Calcium Ionized Calcium Phosphorus Magnesium Direct Bilirubin AST ALT Alkaline Phosphatase Lactate Dehydrogenase Troponin T C-Reactive Protein Total Protein Albumin Prealbumin Triglycerides Cholesterol LDL Cholesterol Direct HDL Cholesterol 25-OH Vitamin D Total PTH Intact Urine pH Urine WBC (Auto) Urine Creatinine Urine Total Protein Fluid Total Protein Vancomycin Trough Rheumatoid Factor Complement C4 Miscellaneous Test Crossmatch See Detail 10/25/16 10/25/16 10/25/16 04:00 04:00 04:00 WBC 14.2 H RBC 2.98 L Hgb 9.0 L Hct 26.2 L MCV MCH MCHC RDW 16.6 H Plt Count Lymph % (Auto) [place] % (Auto) 10.7 H Lymph # [place] # 1.5 H Baso # Seg Neutrophils % 73.6 H Seg Neuts % (Manual) Lymphocytes % (Manual) Monocytes % (Manual) Eosinophils % (Manual) Basophils % (Manual) Nucleated RBC % Seg Neutrophils # 10.5 H Seg Neutrophils # Man Lymphocytes # (Manual) Monocytes # (Manual) Eosinophils # (Manual) Basophils # (Manual) PT INR Fibrinogen dRVVT Confirm Interp Factor V Activity POC ABG pH POC ABG pCO2 POC ABG pO2 ABG pO2 ABG HCO3 ABG Base Excess ABG Hemoglobin Oxyhemoglobin Sodium 132 L Potassium Chloride 94.7 L Carbon Dioxide BUN 51 H Creatinine 1.6 H Glucose 130 H POC Glucose Lactic Acid Calcium 8.3 L Ionized Calcium Phosphorus 1.60 L D Magnesium Direct Bilirubin AST ALT Alkaline Phosphatase Lactate Dehydrogenase Troponin T C-Reactive Protein Total Protein Albumin Prealbumin Triglycerides Cholesterol LDL Cholesterol Direct HDL Cholesterol 25-OH Vitamin D Total PTH Intact Urine pH Urine WBC (Auto) Urine Creatinine Urine Total Protein Fluid Total Protein Vancomycin Trough Rheumatoid Factor Complement C4 Miscellaneous Test Crossmatch 10/25/16 10/25/16 10/25/16 04:32 11:48 17:22 WBC RBC Hgb Hct MCV MCH MCHC RDW Plt Count Lymph % (Auto) [place] % (Auto) Lymph # [place] # Baso # Seg Neutrophils % Seg Neuts % (Manual) Lymphocytes % (Manual) Monocytes % (Manual) Eosinophils % (Manual) Basophils % (Manual) Nucleated RBC % Seg Neutrophils # Seg Neutrophils # Man Lymphocytes # (Manual) Monocytes # (Manual) Eosinophils # (Manual) Basophils # (Manual) PT INR Fibrinogen dRVVT Confirm Interp Factor V Activity POC ABG pH POC ABG pCO2 POC ABG pO2 ABG pO2 ABG HCO3 ABG Base Excess ABG Hemoglobin Oxyhemoglobin Sodium Potassium Chloride Carbon Dioxide BUN Creatinine Glucose POC Glucose 124 H 171 H 120 H Lactic Acid Calcium Ionized Calcium Phosphorus Magnesium Direct Bilirubin AST ALT Alkaline Phosphatase Lactate Dehydrogenase Troponin T C-Reactive Protein Total Protein Albumin Prealbumin Triglycerides Cholesterol LDL Cholesterol Direct HDL Cholesterol 25-OH Vitamin D Total PTH Intact Urine pH Urine WBC (Auto) Urine Creatinine Urine Total Protein Fluid Total Protein Vancomycin Trough Rheumatoid Factor Complement C4 Miscellaneous Test Crossmatch 10/26/16 10/26/16 10/26/16 04:54 07:06 07:06 WBC 16.9 H RBC 3.06 L Hgb 9.1 L Hct 26.9 L MCV MCH MCHC RDW 16.9 H Plt Count Lymph % (Auto) [place] % (Auto) Lymph # [place] # Baso # Seg Neutrophils % Seg Neuts % (Manual) 71.0 H Lymphocytes % (Manual) 5.0 L Monocytes % (Manual) 12.0 H Eosinophils % (Manual) Basophils % (Manual) Nucleated RBC % Seg Neutrophils # Seg Neutrophils # Man 12.0 H Lymphocytes # (Manual) 0.8 L Monocytes # (Manual) 2.0 H Eosinophils # (Manual) Basophils # (Manual) PT INR Fibrinogen dRVVT Confirm Interp Factor V Activity POC ABG pH POC ABG pCO2 POC ABG pO2 ABG pO2 ABG HCO3 ABG Base Excess ABG Hemoglobin Oxyhemoglobin Sodium 135 L Potassium Chloride 97.1 L Carbon Dioxide BUN 73 H Creatinine 2.2 H Glucose 117 H POC Glucose 123 H Lactic Acid Calcium Ionized Calcium Phosphorus 1.70 L Magnesium Direct Bilirubin AST ALT Alkaline Phosphatase Lactate Dehydrogenase Troponin T C-Reactive Protein Total Protein Albumin Prealbumin Triglycerides Cholesterol LDL Cholesterol Direct HDL Cholesterol 25-OH Vitamin D Total PTH Intact Urine pH Urine WBC (Auto) Urine Creatinine Urine Total Protein Fluid Total Protein Vancomycin Trough Rheumatoid Factor Complement C4 Miscellaneous Test Crossmatch 10/26/16 10/26/16 10/26/16 12:12 17:29 23:42 WBC RBC Hgb Hct MCV MCH MCHC RDW Plt Count Lymph % (Auto) [place] % (Auto) Lymph # [place] # Baso # Seg Neutrophils % Seg Neuts % (Manual) Lymphocytes % (Manual) Monocytes % (Manual) Eosinophils % (Manual) Basophils % (Manual) Nucleated RBC % Seg Neutrophils # Seg Neutrophils # Man Lymphocytes # (Manual) Monocytes # (Manual) Eosinophils # (Manual) Basophils # (Manual) PT INR Fibrinogen dRVVT Confirm Interp Factor V Activity POC ABG pH POC ABG pCO2 POC ABG pO2 ABG pO2 ABG HCO3 ABG Base Excess ABG Hemoglobin Oxyhemoglobin Sodium Potassium Chloride Carbon Dioxide BUN Creatinine Glucose POC Glucose 126 H 161 H 118 H Lactic Acid Calcium Ionized Calcium Phosphorus Magnesium Direct Bilirubin AST ALT Alkaline Phosphatase Lactate Dehydrogenase Troponin T C-Reactive Protein Total Protein Albumin Prealbumin Triglycerides Cholesterol LDL Cholesterol Direct HDL Cholesterol 25-OH Vitamin D Total PTH Intact Urine pH Urine WBC (Auto) Urine Creatinine Urine Total Protein Fluid Total Protein Vancomycin Trough Rheumatoid Factor Complement C4 Miscellaneous Test Crossmatch 10/27/16 10/27/16 10/27/16 05:03 06:30 06:30 WBC 13.9 H RBC 3.09 L Hgb 9.2 L Hct 27.5 L MCV MCH MCHC RDW 17.0 H Plt Count Lymph % (Auto) [place] % (Auto) Lymph # [place] # Baso # Seg Neutrophils % Seg Neuts % (Manual) 78.0 H Lymphocytes % (Manual) Monocytes % (Manual) Eosinophils % (Manual) Basophils % (Manual) Nucleated RBC % 2.0 H Seg Neutrophils # Seg Neutrophils # Man 10.8 H Lymphocytes # (Manual) Monocytes # (Manual) 1.0 H Eosinophils # (Manual) Basophils # (Manual) PT INR Fibrinogen dRVVT Confirm Interp Factor V Activity POC ABG pH POC ABG pCO2 POC ABG pO2 ABG pO2 ABG HCO3 ABG Base Excess ABG Hemoglobin Oxyhemoglobin Sodium Potassium Chloride Carbon Dioxide BUN 40 H Creatinine 1.5 H Glucose 135 H POC Glucose 107 H Lactic Acid Calcium 8.3 L Ionized Calcium Phosphorus 1.30 L D Magnesium Direct Bilirubin AST ALT Alkaline Phosphatase Lactate Dehydrogenase Troponin T C-Reactive Protein Total Protein Albumin Prealbumin Triglycerides Cholesterol LDL Cholesterol Direct HDL Cholesterol 25-OH Vitamin D Total PTH Intact Urine pH Urine WBC (Auto) Urine Creatinine Urine Total Protein Fluid Total Protein Vancomycin Trough Rheumatoid Factor Complement C4 Miscellaneous Test Crossmatch 10/27/16 10/27/16 10/27/16 13:27 18:07 23:40 WBC RBC Hgb Hct MCV MCH MCHC RDW Plt Count Lymph % (Auto) [place] % (Auto) Lymph # [place] # Baso # Seg Neutrophils % Seg Neuts % (Manual) Lymphocytes % (Manual) Monocytes % (Manual) Eosinophils % (Manual) Basophils % (Manual) Nucleated RBC % Seg Neutrophils # Seg Neutrophils # Man Lymphocytes # (Manual) Monocytes # (Manual) Eosinophils # (Manual) Basophils # (Manual) PT INR Fibrinogen dRVVT Confirm Interp Factor V Activity POC ABG pH POC ABG pCO2 POC ABG pO2 ABG pO2 ABG HCO3 ABG Base Excess ABG Hemoglobin Oxyhemoglobin Sodium Potassium Chloride Carbon Dioxide BUN Creatinine Glucose POC Glucose 117 H 121 H 118 H Lactic Acid Calcium Ionized Calcium Phosphorus Magnesium Direct Bilirubin AST ALT Alkaline Phosphatase Lactate Dehydrogenase Troponin T C-Reactive Protein Total Protein Albumin Prealbumin Triglycerides Cholesterol LDL Cholesterol Direct HDL Cholesterol 25-OH Vitamin D Total PTH Intact Urine pH Urine WBC (Auto) Urine Creatinine Urine Total Protein Fluid Total Protein Vancomycin Trough Rheumatoid Factor Complement C4 Miscellaneous Test Crossmatch 10/28/16 10/28/16 10/28/16 05:48 06:45 06:45 WBC 14.7 H RBC 3.05 L Hgb 9.0 L Hct 26.9 L MCV MCH MCHC RDW 16.8 H Plt Count Lymph % (Auto) 8.2 L [place] % (Auto) 8.4 H Lymph # [place] # 1.2 H Baso # Seg Neutrophils % 81.9 H Seg Neuts % (Manual) Lymphocytes % (Manual) Monocytes % (Manual) Eosinophils % (Manual) Basophils % (Manual) Nucleated RBC % Seg Neutrophils # 12.1 H Seg Neutrophils # Man Lymphocytes # (Manual) Monocytes # (Manual) Eosinophils # (Manual) Basophils # (Manual) PT INR Fibrinogen dRVVT Confirm Interp Factor V Activity POC ABG pH POC ABG pCO2 POC ABG pO2 ABG pO2 ABG HCO3 ABG Base Excess ABG Hemoglobin Oxyhemoglobin Sodium Potassium Chloride Carbon Dioxide BUN 60 H Creatinine 1.9 H Glucose 120 H POC Glucose 114 H Lactic Acid Calcium Ionized Calcium Phosphorus Magnesium Direct Bilirubin AST ALT Alkaline Phosphatase Lactate Dehydrogenase Troponin T C-Reactive Protein Total Protein Albumin Prealbumin Triglycerides Cholesterol LDL Cholesterol Direct HDL Cholesterol 25-OH Vitamin D Total PTH Intact Urine pH Urine WBC (Auto) Urine Creatinine Urine Total Protein Fluid Total Protein Vancomycin Trough Rheumatoid Factor Complement C4 Miscellaneous Test Crossmatch 10/28/16 10/28/16 10/29/16 17:08 23:50 05:10 WBC RBC Hgb Hct MCV MCH MCHC RDW Plt Count Lymph % (Auto) [place] % (Auto) Lymph # [place] # Baso # Seg Neutrophils % Seg Neuts % (Manual) Lymphocytes % (Manual) Monocytes % (Manual) Eosinophils % (Manual) Basophils % (Manual) Nucleated RBC % Seg Neutrophils # Seg Neutrophils # Man Lymphocytes # (Manual) Monocytes # (Manual) Eosinophils # (Manual) Basophils # (Manual) PT INR Fibrinogen dRVVT Confirm Interp Factor V Activity POC ABG pH POC ABG pCO2 POC ABG pO2 ABG pO2 ABG HCO3 ABG Base Excess ABG Hemoglobin Oxyhemoglobin Sodium Potassium Chloride Carbon Dioxide BUN Creatinine Glucose POC Glucose 109 H 110 H 124 H Lactic Acid Calcium Ionized Calcium Phosphorus Magnesium Direct Bilirubin AST ALT Alkaline Phosphatase Lactate Dehydrogenase Troponin T C-Reactive Protein Total Protein Albumin Prealbumin Triglycerides Cholesterol LDL Cholesterol Direct HDL Cholesterol 25-OH Vitamin D Total PTH Intact Urine pH Urine WBC (Auto) Urine Creatinine Urine Total Protein Fluid Total Protein Vancomycin Trough Rheumatoid Factor Complement C4 Miscellaneous Test Crossmatch 10/29/16 10/29/16 10/29/16 07:45 07:45 12:19 WBC 14.7 H RBC 3.15 L Hgb 9.3 L Hct 28.9 L MCV MCH MCHC RDW 17.0 H Plt Count Lymph % (Auto) 11.9 L [place] % (Auto) 8.6 H Lymph # [place] # 1.3 H Baso # Seg Neutrophils % 78.1 H Seg Neuts % (Manual) Lymphocytes % (Manual) Monocytes % (Manual) Eosinophils % (Manual) Basophils % (Manual) Nucleated RBC % Seg Neutrophils # 11.4 H Seg Neutrophils # Man Lymphocytes # (Manual) Monocytes # (Manual) Eosinophils # (Manual) Basophils # (Manual) PT INR Fibrinogen dRVVT Confirm Interp Factor V Activity POC ABG pH POC ABG pCO2 POC ABG pO2 ABG pO2 ABG HCO3 ABG Base Excess ABG Hemoglobin Oxyhemoglobin Sodium Potassium 5.1 H Chloride Carbon Dioxide 19 L BUN 78 H Creatinine 2.2 H Glucose 116 H POC Glucose 118 H Lactic Acid Calcium Ionized Calcium Phosphorus Magnesium Direct Bilirubin AST ALT Alkaline Phosphatase Lactate Dehydrogenase Troponin T C-Reactive Protein Total Protein Albumin Prealbumin Triglycerides Cholesterol LDL Cholesterol Direct HDL Cholesterol 25-OH Vitamin D Total PTH Intact Urine pH Urine WBC (Auto) Urine Creatinine Urine Total Protein Fluid Total Protein Vancomycin Trough Rheumatoid Factor Complement C4 Miscellaneous Test Crossmatch 10/29/16 10/30/16 10/30/16 17:49 01:52 03:28 WBC RBC Hgb Hct MCV MCH MCHC RDW Plt Count Lymph % (Auto) [place] % (Auto) Lymph # [place] # Baso # Seg Neutrophils % Seg Neuts % (Manual) Lymphocytes % (Manual) Monocytes % (Manual) Eosinophils % (Manual) Basophils % (Manual) Nucleated RBC % Seg Neutrophils # Seg Neutrophils # Man Lymphocytes # (Manual) Monocytes # (Manual) Eosinophils # (Manual) Basophils # (Manual) PT INR Fibrinogen dRVVT Confirm Interp Factor V Activity POC ABG pH POC ABG pCO2 POC ABG pO2 ABG pO2 ABG HCO3 ABG Base Excess ABG Hemoglobin Oxyhemoglobin Sodium Potassium 5.4 H Chloride 97.5 L Carbon Dioxide 19 L BUN 90 H Creatinine 2.5 H Glucose POC Glucose 120 H 129 H Lactic Acid Calcium Ionized Calcium Phosphorus 5.20 H Magnesium Direct Bilirubin AST ALT Alkaline Phosphatase Lactate Dehydrogenase Troponin T C-Reactive Protein Total Protein Albumin Prealbumin Triglycerides Cholesterol LDL Cholesterol Direct HDL Cholesterol 25-OH Vitamin D Total PTH Intact Urine pH Urine WBC (Auto) Urine Creatinine Urine Total Protein Fluid Total Protein Vancomycin Trough Rheumatoid Factor Complement C4 Miscellaneous Test Crossmatch 10/30/16 10/30/16 10/30/16 03:28 08:19 08:19 WBC 11.6 H 15.9 H RBC 2.75 L 2.82 L Hgb 7.9 L 8.3 L Hct 24.2 L 25.2 L MCV MCH MCHC RDW 16.7 H 17.2 H Plt Count Lymph % (Auto) [place] % (Auto) 9.8 H Lymph # [place] # 1.1 H Baso # Seg Neutrophils % 74.2 H Seg Neuts % (Manual) Lymphocytes % (Manual) Monocytes % (Manual) Eosinophils % (Manual) Basophils % (Manual) Nucleated RBC % Seg Neutrophils # 8.6 H Seg Neutrophils # Man Lymphocytes # (Manual) Monocytes # (Manual) Eosinophils # (Manual) Basophils # (Manual) PT INR Fibrinogen dRVVT Confirm Interp Factor V Activity POC ABG pH POC ABG pCO2 POC ABG pO2 ABG pO2 ABG HCO3 ABG Base Excess ABG Hemoglobin Oxyhemoglobin Sodium Potassium 5.3 H Chloride 97.4 L Carbon Dioxide 19 L BUN 93 H Creatinine 2.6 H Glucose POC Glucose Lactic Acid Calcium Ionized Calcium Phosphorus Magnesium Direct Bilirubin AST ALT Alkaline Phosphatase Lactate Dehydrogenase Troponin T C-Reactive Protein Total Protein Albumin Prealbumin Triglycerides Cholesterol LDL Cholesterol Direct HDL Cholesterol 25-OH Vitamin D Total PTH Intact Urine pH Urine WBC (Auto) Urine Creatinine Urine Total Protein Fluid Total Protein Vancomycin Trough Rheumatoid Factor Complement C4 Miscellaneous Test Crossmatch 10/30/16 10/30/16 10/31/16 17:11 23:56 00:40 WBC RBC Hgb Hct MCV MCH MCHC RDW Plt Count Lymph % (Auto) [place] % (Auto) Lymph # [place] # Baso # Seg Neutrophils % Seg Neuts % (Manual) Lymphocytes % (Manual) Monocytes % (Manual) Eosinophils % (Manual) Basophils % (Manual) Nucleated RBC % Seg Neutrophils # Seg Neutrophils # Man Lymphocytes # (Manual) Monocytes # (Manual) Eosinophils # (Manual) Basophils # (Manual) PT INR Fibrinogen dRVVT Confirm Interp Factor V Activity POC ABG pH POC ABG pCO2 POC ABG pO2 ABG pO2 ABG HCO3 ABG Base Excess ABG Hemoglobin Oxyhemoglobin Sodium Potassium Chloride Carbon Dioxide BUN Creatinine Glucose POC Glucose 106 H 117 H 120 H Lactic Acid Calcium Ionized Calcium Phosphorus Magnesium Direct Bilirubin AST ALT Alkaline Phosphatase Lactate Dehydrogenase Troponin T C-Reactive Protein Total Protein Albumin Prealbumin Triglycerides Cholesterol LDL Cholesterol Direct HDL Cholesterol 25-OH Vitamin D Total PTH Intact Urine pH Urine WBC (Auto) Urine Creatinine Urine Total Protein Fluid Total Protein Vancomycin Trough Rheumatoid Factor Complement C4 Miscellaneous Test Crossmatch 10/31/16 10/31/16 10/31/16 05:43 07:15 07:15 WBC 12.1 H RBC 2.63 L Hgb 7.7 L Hct 23.3 L MCV MCH MCHC RDW 16.7 H Plt Count Lymph % (Auto) 11.7 L [place] % (Auto) 7.7 H Lymph # [place] # 0.9 H Baso # Seg Neutrophils % 78.0 H Seg Neuts % (Manual) Lymphocytes % (Manual) Monocytes % (Manual) Eosinophils % (Manual) Basophils % (Manual) Nucleated RBC % Seg Neutrophils # 9.4 H Seg Neutrophils # Man Lymphocytes # (Manual) Monocytes # (Manual) Eosinophils # (Manual) Basophils # (Manual) PT INR Fibrinogen dRVVT Confirm Interp Factor V Activity POC ABG pH POC ABG pCO2 POC ABG pO2 ABG pO2 ABG HCO3 ABG Base Excess ABG Hemoglobin Oxyhemoglobin Sodium Potassium Chloride 96.4 L Carbon Dioxide 21 L BUN 99 H Creatinine 2.6 H Glucose 144 H POC Glucose 125 H Lactic Acid Calcium Ionized Calcium Phosphorus 4.80 H Magnesium Direct Bilirubin AST ALT Alkaline Phosphatase Lactate Dehydrogenase Troponin T C-Reactive Protein Total Protein Albumin Prealbumin Triglycerides Cholesterol LDL Cholesterol Direct HDL Cholesterol 25-OH Vitamin D Total PTH Intact Urine pH Urine WBC (Auto) Urine Creatinine Urine Total Protein Fluid Total Protein Vancomycin Trough Rheumatoid Factor Complement C4 Miscellaneous Test Crossmatch 10/31/16 10/31/16 11/01/16 11:46 18:34 00:20 WBC RBC Hgb Hct MCV MCH MCHC RDW Plt Count Lymph % (Auto) [place] % (Auto) Lymph # [place] # Baso # Seg Neutrophils % Seg Neuts % (Manual) Lymphocytes % (Manual) Monocytes % (Manual) Eosinophils % (Manual) Basophils % (Manual) Nucleated RBC % Seg Neutrophils # Seg Neutrophils # Man Lymphocytes # (Manual) Monocytes # (Manual) Eosinophils # (Manual) Basophils # (Manual) PT INR Fibrinogen dRVVT Confirm Interp Factor V Activity POC ABG pH POC ABG pCO2 POC ABG pO2 ABG pO2 ABG HCO3 ABG Base Excess ABG Hemoglobin Oxyhemoglobin Sodium Potassium Chloride Carbon Dioxide BUN Creatinine Glucose POC Glucose 159 H 140 H 132 H Lactic Acid Calcium Ionized Calcium Phosphorus Magnesium Direct Bilirubin AST ALT Alkaline Phosphatase Lactate Dehydrogenase Troponin T C-Reactive Protein Total Protein Albumin Prealbumin Triglycerides Cholesterol LDL Cholesterol Direct HDL Cholesterol 25-OH Vitamin D Total PTH Intact Urine pH Urine WBC (Auto) Urine Creatinine Urine Total Protein Fluid Total Protein Vancomycin Trough Rheumatoid Factor Complement C4 Miscellaneous Test Crossmatch 11/01/16 11/01/16 11/01/16 04:55 04:55 06:11 WBC 11.2 H RBC 2.68 L Hgb 7.5 L Hct 23.7 L MCV MCH MCHC RDW 16.1 H Plt Count Lymph % (Auto) [place] % (Auto) 9.8 H Lymph # [place] # 1.1 H Baso # Seg Neutrophils % 70.8 H Seg Neuts % (Manual) Lymphocytes % (Manual) Monocytes % (Manual) Eosinophils % (Manual) Basophils % (Manual) Nucleated RBC % Seg Neutrophils # 7.9 H Seg Neutrophils # Man Lymphocytes # (Manual) Monocytes # (Manual) Eosinophils # (Manual) Basophils # (Manual) PT INR Fibrinogen dRVVT Confirm Interp Factor V Activity POC ABG pH POC ABG pCO2 POC ABG pO2 ABG pO2 ABG HCO3 ABG Base Excess ABG Hemoglobin Oxyhemoglobin Sodium Potassium 3.3 L D Chloride Carbon Dioxide BUN 61 H Creatinine 1.9 H Glucose 114 H POC Glucose 115 H Lactic Acid Calcium Ionized Calcium Phosphorus 1.80 L D Magnesium Direct Bilirubin AST ALT Alkaline Phosphatase Lactate Dehydrogenase Troponin T C-Reactive Protein Total Protein Albumin Prealbumin Triglycerides Cholesterol LDL Cholesterol Direct HDL Cholesterol 25-OH Vitamin D Total PTH Intact Urine pH Urine WBC (Auto) Urine Creatinine Urine Total Protein Fluid Total Protein Vancomycin Trough Rheumatoid Factor Complement C4 Miscellaneous Test Crossmatch 11/01/16 11/01/16 11/01/16 12:29 18:23 23:58 WBC RBC Hgb Hct MCV MCH MCHC RDW Plt Count Lymph % (Auto) [place] % (Auto) Lymph # [place] # Baso # Seg Neutrophils % Seg Neuts % (Manual) Lymphocytes % (Manual) Monocytes % (Manual) Eosinophils % (Manual) Basophils % (Manual) Nucleated RBC % Seg Neutrophils # Seg Neutrophils # Man Lymphocytes # (Manual) Monocytes # (Manual) Eosinophils # (Manual) Basophils # (Manual) PT INR Fibrinogen dRVVT Confirm Interp Factor V Activity POC ABG pH POC ABG pCO2 POC ABG pO2 ABG pO2 ABG HCO3 ABG Base Excess ABG Hemoglobin Oxyhemoglobin Sodium Potassium Chloride Carbon Dioxide BUN Creatinine Glucose POC Glucose 142 H 143 H 128 H Lactic Acid Calcium Ionized Calcium Phosphorus Magnesium Direct Bilirubin AST ALT Alkaline Phosphatase Lactate Dehydrogenase Troponin T C-Reactive Protein Total Protein Albumin Prealbumin Triglycerides Cholesterol LDL Cholesterol Direct HDL Cholesterol 25-OH Vitamin D Total PTH Intact Urine pH Urine WBC (Auto) Urine Creatinine Urine Total Protein Fluid Total Protein Vancomycin Trough Rheumatoid Factor Complement C4 Miscellaneous Test Crossmatch 11/02/16 11/02/16 11/02/16 04:16 05:29 11:58 WBC RBC Hgb Hct MCV MCH MCHC RDW Plt Count Lymph % (Auto) [place] % (Auto) Lymph # [place] # Baso # Seg Neutrophils % Seg Neuts % (Manual) Lymphocytes % (Manual) Monocytes % (Manual) Eosinophils % (Manual) Basophils % (Manual) Nucleated RBC % Seg Neutrophils # Seg Neutrophils # Man Lymphocytes # (Manual) Monocytes # (Manual) Eosinophils # (Manual) Basophils # (Manual) PT INR Fibrinogen dRVVT Confirm Interp Factor V Activity POC ABG pH POC ABG pCO2 POC ABG pO2 ABG pO2 ABG HCO3 ABG Base Excess ABG Hemoglobin Oxyhemoglobin Sodium Potassium 3.1 L Chloride Carbon Dioxide BUN 73 H Creatinine 2.3 H Glucose 112 H POC Glucose 135 H 149 H Lactic Acid Calcium Ionized Calcium Phosphorus Magnesium Direct Bilirubin AST ALT Alkaline Phosphatase Lactate Dehydrogenase Troponin T C-Reactive Protein Total Protein Albumin Prealbumin Triglycerides Cholesterol LDL Cholesterol Direct HDL Cholesterol 25-OH Vitamin D Total PTH Intact Urine pH Urine WBC (Auto) Urine Creatinine Urine Total Protein Fluid Total Protein Vancomycin Trough Rheumatoid Factor Complement C4 Miscellaneous Test Crossmatch 11/02/16 11/02/16 11/03/16 17:42 22:54 06:00 WBC RBC Hgb Hct MCV MCH MCHC RDW Plt Count Lymph % (Auto) [place] % (Auto) Lymph # [place] # Baso # Seg Neutrophils % Seg Neuts % (Manual) Lymphocytes % (Manual) Monocytes % (Manual) Eosinophils % (Manual) Basophils % (Manual) Nucleated RBC % Seg Neutrophils # Seg Neutrophils # Man Lymphocytes # (Manual) Monocytes # (Manual) Eosinophils # (Manual) Basophils # (Manual) PT INR Fibrinogen dRVVT Confirm Interp Factor V Activity POC ABG pH POC ABG pCO2 POC ABG pO2 ABG pO2 ABG HCO3 ABG Base Excess ABG Hemoglobin Oxyhemoglobin Sodium Potassium Chloride 96.7 L Carbon Dioxide BUN 41 H Creatinine 1.5 H Glucose 145 H POC Glucose 182 H 115 H Lactic Acid Calcium Ionized Calcium Phosphorus 1.60 L D Magnesium 1.50 L Direct Bilirubin AST ALT Alkaline Phosphatase Lactate Dehydrogenase Troponin T C-Reactive Protein Total Protein Albumin Prealbumin Triglycerides Cholesterol LDL Cholesterol Direct HDL Cholesterol 25-OH Vitamin D Total PTH Intact Urine pH Urine WBC (Auto) Urine Creatinine Urine Total Protein Fluid Total Protein Vancomycin Trough Rheumatoid Factor Complement C4 Miscellaneous Test Crossmatch 11/03/16 11/03/16 11/03/16 11:53 17:45 23:37 WBC RBC Hgb Hct MCV MCH MCHC RDW Plt Count Lymph % (Auto) [place] % (Auto) Lymph # [place] # Baso # Seg Neutrophils % Seg Neuts % (Manual) Lymphocytes % (Manual) Monocytes % (Manual) Eosinophils % (Manual) Basophils % (Manual) Nucleated RBC % Seg Neutrophils # Seg Neutrophils # Man Lymphocytes # (Manual) Monocytes # (Manual) Eosinophils # (Manual) Basophils # (Manual) PT INR Fibrinogen dRVVT Confirm Interp Factor V Activity POC ABG pH POC ABG pCO2 POC ABG pO2 ABG pO2 ABG HCO3 ABG Base Excess ABG Hemoglobin Oxyhemoglobin Sodium Potassium Chloride Carbon Dioxide BUN Creatinine Glucose POC Glucose 131 H 134 H 113 H Lactic Acid Calcium Ionized Calcium Phosphorus Magnesium Direct Bilirubin AST ALT Alkaline Phosphatase Lactate Dehydrogenase Troponin T C-Reactive Protein Total Protein Albumin Prealbumin Triglycerides Cholesterol LDL Cholesterol Direct HDL Cholesterol 25-OH Vitamin D Total PTH Intact Urine pH Urine WBC (Auto) Urine Creatinine Urine Total Protein Fluid Total Protein Vancomycin Trough Rheumatoid Factor Complement C4 Miscellaneous Test Crossmatch 11/04/16 11/04/16 11/04/16 05:41 06:00 12:10 WBC RBC Hgb Hct MCV MCH MCHC RDW Plt Count Lymph % (Auto) [place] % (Auto) Lymph # [place] # Baso # Seg Neutrophils % Seg Neuts % (Manual) Lymphocytes % (Manual) Monocytes % (Manual) Eosinophils % (Manual) Basophils % (Manual) Nucleated RBC % Seg Neutrophils # Seg Neutrophils # Man Lymphocytes # (Manual) Monocytes # (Manual) Eosinophils # (Manual) Basophils # (Manual) PT INR Fibrinogen dRVVT Confirm Interp Factor V Activity POC ABG pH POC ABG pCO2 POC ABG pO2 ABG pO2 ABG HCO3 ABG Base Excess ABG Hemoglobin Oxyhemoglobin Sodium Potassium Chloride 96.7 L Carbon Dioxide BUN 52 H Creatinine 1.9 H Glucose 126 H POC Glucose 137 H 191 H Lactic Acid Calcium Ionized Calcium Phosphorus Magnesium Direct Bilirubin AST ALT Alkaline Phosphatase Lactate Dehydrogenase Troponin T C-Reactive Protein Total Protein Albumin Prealbumin Triglycerides Cholesterol LDL Cholesterol Direct HDL Cholesterol 25-OH Vitamin D Total PTH Intact Urine pH Urine WBC (Auto) Urine Creatinine Urine Total Protein Fluid Total Protein Vancomycin Trough Rheumatoid Factor Complement C4 Miscellaneous Test Crossmatch 11/04/16 11/05/16 11/05/16 22:57 03:10 05:10 WBC RBC Hgb Hct MCV MCH MCHC RDW Plt Count Lymph % (Auto) [place] % (Auto) Lymph # [place] # Baso # Seg Neutrophils % Seg Neuts % (Manual) Lymphocytes % (Manual) Monocytes % (Manual) Eosinophils % (Manual) Basophils % (Manual) Nucleated RBC % Seg Neutrophils # Seg Neutrophils # Man Lymphocytes # (Manual) Monocytes # (Manual) Eosinophils # (Manual) Basophils # (Manual) PT INR Fibrinogen dRVVT Confirm Interp Factor V Activity POC ABG pH POC ABG pCO2 POC ABG pO2 ABG pO2 ABG HCO3 ABG Base Excess ABG Hemoglobin Oxyhemoglobin Sodium 136 L Potassium Chloride 97.2 L Carbon Dioxide BUN 32 H Creatinine 1.3 H Glucose 123 H POC Glucose 125 H 108 H Lactic Acid Calcium 7.8 L Ionized Calcium Phosphorus Magnesium Direct Bilirubin AST ALT Alkaline Phosphatase Lactate Dehydrogenase Troponin T C-Reactive Protein Total Protein Albumin Prealbumin Triglycerides Cholesterol LDL Cholesterol Direct HDL Cholesterol 25-OH Vitamin D Total PTH Intact Urine pH Urine WBC (Auto) Urine Creatinine Urine Total Protein Fluid Total Protein Vancomycin Trough Rheumatoid Factor Complement C4 Miscellaneous Test Crossmatch 11/05/16 11/05/16 11/05/16 12:23 13:09 13:25 WBC RBC Hgb Hct MCV MCH MCHC RDW Plt Count Lymph % (Auto) [place] % (Auto) Lymph # [place] # Baso # Seg Neutrophils % Seg Neuts % (Manual) Lymphocytes % (Manual) Monocytes % (Manual) Eosinophils % (Manual) Basophils % (Manual) Nucleated RBC % Seg Neutrophils # Seg Neutrophils # Man Lymphocytes # (Manual) Monocytes # (Manual) Eosinophils # (Manual) Basophils # (Manual) PT INR Fibrinogen dRVVT Confirm Interp Factor V Activity POC ABG pH POC ABG pCO2 POC ABG pO2 ABG pO2 ABG HCO3 ABG Base Excess ABG Hemoglobin Oxyhemoglobin Sodium Potassium Chloride Carbon Dioxide BUN Creatinine Glucose POC Glucose 124 H Lactic Acid Calcium Ionized Calcium Phosphorus Magnesium Direct Bilirubin AST ALT Alkaline Phosphatase Lactate Dehydrogenase Troponin T C-Reactive Protein 11.40 H Total Protein Albumin Prealbumin Triglycerides Cholesterol LDL Cholesterol Direct HDL Cholesterol 25-OH Vitamin D Total PTH Intact Urine pH 9.0 H Urine WBC (Auto) Urine Creatinine Urine Total Protein Fluid Total Protein Vancomycin Trough Rheumatoid Factor Complement C4 Miscellaneous Test Crossmatch 11/05/16 11/05/16 11/05/16 13:25 17:54 23:42 WBC RBC Hgb Hct MCV MCH MCHC RDW Plt Count Lymph % (Auto) [place] % (Auto) Lymph # [place] # Baso # Seg Neutrophils % Seg Neuts % (Manual) Lymphocytes % (Manual) Monocytes % (Manual) Eosinophils % (Manual) Basophils % (Manual) Nucleated RBC % Seg Neutrophils # Seg Neutrophils # Man Lymphocytes # (Manual) Monocytes # (Manual) Eosinophils # (Manual) Basophils # (Manual) PT INR Fibrinogen dRVVT Confirm Interp Factor V Activity POC ABG pH POC ABG pCO2 POC ABG pO2 ABG pO2 ABG HCO3 ABG Base Excess ABG Hemoglobin Oxyhemoglobin Sodium Potassium Chloride Carbon Dioxide BUN Creatinine Glucose POC Glucose 114 H 134 H Lactic Acid Calcium Ionized Calcium Phosphorus Magnesium Direct Bilirubin AST ALT Alkaline Phosphatase Lactate Dehydrogenase Troponin T C-Reactive Protein Total Protein Albumin Prealbumin Triglycerides Cholesterol LDL Cholesterol Direct HDL Cholesterol 25-OH Vitamin D Total PTH Intact Urine pH Urine WBC (Auto) Urine Creatinine Urine Total Protein Fluid Total Protein Vancomycin Trough Rheumatoid Factor Complement C4 Miscellaneous Test Flexitest 1 H Crossmatch 11/06/16 11/06/16 11/06/16 04:56 06:25 06:25 WBC RBC 2.50 L Hgb 7.3 L Hct 22.5 L MCV MCH MCHC RDW 16.9 H Plt Count Lymph % (Auto) [place] % (Auto) 10.5 H Lymph # [place] # 1.1 H Baso # Seg Neutrophils % Seg Neuts % (Manual) Lymphocytes % (Manual) Monocytes % (Manual) Eosinophils % (Manual) Basophils % (Manual) Nucleated RBC % Seg Neutrophils # Seg Neutrophils # Man Lymphocytes # (Manual) Monocytes # (Manual) Eosinophils # (Manual) Basophils # (Manual) PT INR Fibrinogen dRVVT Confirm Interp Factor V Activity POC ABG pH POC ABG pCO2 POC ABG pO2 ABG pO2 ABG HCO3 ABG Base Excess ABG Hemoglobin Oxyhemoglobin Sodium Potassium 5.1 H Chloride 95.9 L Carbon Dioxide BUN 52 H Creatinine 1.8 H Glucose 117 H POC Glucose 120 H Lactic Acid Calcium Ionized Calcium Phosphorus Magnesium Direct Bilirubin AST 103 H ALT 77 H Alkaline Phosphatase 285 H Lactate Dehydrogenase Troponin T C-Reactive Protein Total Protein 6.2 L Albumin 1.8 L Prealbumin 0.180 L Triglycerides Cholesterol LDL Cholesterol Direct HDL Cholesterol 25-OH Vitamin D Total PTH Intact Urine pH Urine WBC (Auto) Urine Creatinine Urine Total Protein Fluid Total Protein Vancomycin Trough Rheumatoid Factor Complement C4 Miscellaneous Test Crossmatch 11/06/16 11/06/16 11/06/16 11:56 17:14 23:52 WBC RBC Hgb Hct MCV MCH MCHC RDW Plt Count Lymph % (Auto) [place] % (Auto) Lymph # [place] # Baso # Seg Neutrophils % Seg Neuts % (Manual) Lymphocytes % (Manual) Monocytes % (Manual) Eosinophils % (Manual) Basophils % (Manual) Nucleated RBC % Seg Neutrophils # Seg Neutrophils # Man Lymphocytes # (Manual) Monocytes # (Manual) Eosinophils # (Manual) Basophils # (Manual) PT INR Fibrinogen dRVVT Confirm Interp Factor V Activity POC ABG pH POC ABG pCO2 POC ABG pO2 ABG pO2 ABG HCO3 ABG Base Excess ABG Hemoglobin Oxyhemoglobin Sodium Potassium Chloride Carbon Dioxide BUN Creatinine Glucose POC Glucose 141 H 125 H 130 H Lactic Acid Calcium Ionized Calcium Phosphorus Magnesium Direct Bilirubin AST ALT Alkaline Phosphatase Lactate Dehydrogenase Troponin T C-Reactive Protein Total Protein Albumin Prealbumin Triglycerides Cholesterol LDL Cholesterol Direct HDL Cholesterol 25-OH Vitamin D Total PTH Intact Urine pH Urine WBC (Auto) Urine Creatinine Urine Total Protein Fluid Total Protein Vancomycin Trough Rheumatoid Factor Complement C4 Miscellaneous Test Crossmatch 11/07/16 11/07/16 11/07/16 06:30 06:30 09:37 WBC RBC 2.18 L Hgb 6.3 L Hct 19.7 L* MCV MCH MCHC RDW 16.8 H Plt Count Lymph % (Auto) [place] % (Auto) 10.0 H Lymph # [place] # 1.0 H Baso # Seg Neutrophils % Seg Neuts % (Manual) Lymphocytes % (Manual) Monocytes % (Manual) Eosinophils % (Manual) Basophils % (Manual) Nucleated RBC % Seg Neutrophils # Seg Neutrophils # Man Lymphocytes # (Manual) Monocytes # (Manual) Eosinophils # (Manual) Basophils # (Manual) PT INR Fibrinogen dRVVT Confirm Interp Factor V Activity POC ABG pH POC ABG pCO2 POC ABG pO2 ABG pO2 ABG HCO3 ABG Base Excess ABG Hemoglobin Oxyhemoglobin Sodium 135 L Potassium Chloride 95.6 L Carbon Dioxide BUN 70 H Creatinine 2.0 H Glucose 126 H POC Glucose Lactic Acid Calcium Ionized Calcium Phosphorus Magnesium Direct Bilirubin AST ALT Alkaline Phosphatase Lactate Dehydrogenase Troponin T C-Reactive Protein Total Protein Albumin Prealbumin Triglycerides Cholesterol LDL Cholesterol Direct HDL Cholesterol 25-OH Vitamin D Total PTH Intact Urine pH Urine WBC (Auto) Urine Creatinine Urine Total Protein Fluid Total Protein Vancomycin Trough Rheumatoid Factor Complement C4 Miscellaneous Test Crossmatch See Detail 11/07/16 11/07/16 11/07/16 12:52 18:51 21:26 WBC RBC Hgb Hct MCV MCH MCHC RDW Plt Count Lymph % (Auto) [place] % (Auto) Lymph # [place] # Baso # Seg Neutrophils % Seg Neuts % (Manual) Lymphocytes % (Manual) Monocytes % (Manual) Eosinophils % (Manual) Basophils % (Manual) Nucleated RBC % Seg Neutrophils # Seg Neutrophils # Man Lymphocytes # (Manual) Monocytes # (Manual) Eosinophils # (Manual) Basophils # (Manual) PT INR Fibrinogen dRVVT Confirm Interp Factor V Activity POC ABG pH 7.523 H POC ABG pCO2 34.6 L POC ABG pO2 53 L ABG pO2 ABG HCO3 ABG Base Excess ABG Hemoglobin Oxyhemoglobin Sodium Potassium Chloride Carbon Dioxide BUN Creatinine Glucose POC Glucose 142 H 155 H Lactic Acid Calcium Ionized Calcium Phosphorus Magnesium Direct Bilirubin AST ALT Alkaline Phosphatase Lactate Dehydrogenase Troponin T C-Reactive Protein Total Protein Albumin Prealbumin Triglycerides Cholesterol LDL Cholesterol Direct HDL Cholesterol 25-OH Vitamin D Total PTH Intact Urine pH Urine WBC (Auto) Urine Creatinine Urine Total Protein Fluid Total Protein Vancomycin Trough Rheumatoid Factor Complement C4 Miscellaneous Test Crossmatch 11/07/16 11/08/16 11/08/16 21:34 13:03 23:37 WBC RBC 2.63 L Hgb 7.7 L Hct 22.7 L MCV MCH MCHC RDW 17.0 H Plt Count Lymph % (Auto) [place] % (Auto) Lymph # [place] # Baso # Seg Neutrophils % Seg Neuts % (Manual) Lymphocytes % (Manual) Monocytes % (Manual) Eosinophils % (Manual) Basophils % (Manual) Nucleated RBC % Seg Neutrophils # Seg Neutrophils # Man Lymphocytes # (Manual) Monocytes # (Manual) Eosinophils # (Manual) Basophils # (Manual) PT INR Fibrinogen dRVVT Confirm Interp Factor V Activity POC ABG pH 7.478 H POC ABG pCO2 34.0 L POC ABG pO2 50 L ABG pO2 ABG HCO3 ABG Base Excess ABG Hemoglobin Oxyhemoglobin Sodium Potassium Chloride Carbon Dioxide BUN Creatinine Glucose POC Glucose 113 H Lactic Acid Calcium Ionized Calcium Phosphorus Magnesium Direct Bilirubin AST ALT Alkaline Phosphatase Lactate Dehydrogenase Troponin T C-Reactive Protein Total Protein Albumin Prealbumin Triglycerides Cholesterol LDL Cholesterol Direct HDL Cholesterol 25-OH Vitamin D Total PTH Intact Urine pH Urine WBC (Auto) Urine Creatinine Urine Total Protein Fluid Total Protein Vancomycin Trough Rheumatoid Factor Complement C4 Miscellaneous Test Crossmatch 11/09/16 11/09/16 11/09/16 04:35 10:15 18:21 WBC RBC 2.68 L Hgb 7.8 L Hct 23.3 L MCV MCH MCHC RDW 17.0 H Plt Count Lymph % (Auto) [place] % (Auto) 12.1 H Lymph # [place] # 1.1 H Baso # Seg Neutrophils % Seg Neuts % (Manual) Lymphocytes % (Manual) Monocytes % (Manual) Eosinophils % (Manual) Basophils % (Manual) Nucleated RBC % Seg Neutrophils # Seg Neutrophils # Man Lymphocytes # (Manual) Monocytes # (Manual) Eosinophils # (Manual) Basophils # (Manual) PT INR Fibrinogen dRVVT Confirm Interp Factor V Activity POC ABG pH POC ABG pCO2 POC ABG pO2 ABG pO2 ABG HCO3 ABG Base Excess ABG Hemoglobin Oxyhemoglobin Sodium Potassium Chloride Carbon Dioxide BUN 51 H Creatinine 1.8 H Glucose POC Glucose 60 L Lactic Acid Calcium 8.3 L Ionized Calcium Phosphorus Magnesium Direct Bilirubin AST ALT Alkaline Phosphatase Lactate Dehydrogenase Troponin T C-Reactive Protein Total Protein Albumin Prealbumin Triglycerides Cholesterol LDL Cholesterol Direct HDL Cholesterol 25-OH Vitamin D Total PTH Intact Urine pH Urine WBC (Auto) Urine Creatinine Urine Total Protein Fluid Total Protein Vancomycin Trough Rheumatoid Factor Complement C4 Miscellaneous Test Crossmatch 11/09/16 11/10/16 11/10/16 18:55 07:00 11:51 WBC RBC Hgb Hct MCV MCH MCHC RDW Plt Count Lymph % (Auto) [place] % (Auto) Lymph # [place] # Baso # Seg Neutrophils % Seg Neuts % (Manual) Lymphocytes % (Manual) Monocytes % (Manual) Eosinophils % (Manual) Basophils % (Manual) Nucleated RBC % Seg Neutrophils # Seg Neutrophils # Man Lymphocytes # (Manual) Monocytes # (Manual) Eosinophils # (Manual) Basophils # (Manual) PT INR Fibrinogen dRVVT Confirm Interp Factor V Activity POC ABG pH POC ABG pCO2 POC ABG pO2 ABG pO2 ABG HCO3 ABG Base Excess ABG Hemoglobin Oxyhemoglobin Sodium Potassium 3.0 L D Chloride 97.4 L Carbon Dioxide BUN 28 H Creatinine 1.3 H Glucose POC Glucose 68 L 120 H Lactic Acid Calcium 7.8 L Ionized Calcium Phosphorus Magnesium Direct Bilirubin AST ALT Alkaline Phosphatase Lactate Dehydrogenase Troponin T C-Reactive Protein Total Protein Albumin Prealbumin Triglycerides Cholesterol LDL Cholesterol Direct HDL Cholesterol 25-OH Vitamin D Total PTH Intact Urine pH Urine WBC (Auto) Urine Creatinine Urine Total Protein Fluid Total Protein Vancomycin Trough Rheumatoid Factor Complement C4 Miscellaneous Test Crossmatch 11/10/16 11/11/16 11/11/16 14:20 06:59 06:59 WBC RBC 2.81 L Hgb 8.1 L Hct 24.4 L MCV MCH MCHC RDW 16.4 H Plt Count Lymph % (Auto) [place] % (Auto) 10.8 H Lymph # [place] # 1.0 H Baso # Seg Neutrophils % Seg Neuts % (Manual) Lymphocytes % (Manual) Monocytes % (Manual) Eosinophils % (Manual) Basophils % (Manual) Nucleated RBC % Seg Neutrophils # Seg Neutrophils # Man Lymphocytes # (Manual) Monocytes # (Manual) Eosinophils # (Manual) Basophils # (Manual) PT INR Fibrinogen dRVVT Confirm Interp Factor V Activity POC ABG pH POC ABG pCO2 POC ABG pO2 ABG pO2 ABG HCO3 ABG Base Excess ABG Hemoglobin Oxyhemoglobin Sodium Potassium Chloride Carbon Dioxide BUN Creatinine Glucose POC Glucose Lactic Acid Calcium Ionized Calcium Phosphorus Magnesium Direct Bilirubin AST ALT Alkaline Phosphatase Lactate Dehydrogenase 196 H Troponin T C-Reactive Protein Total Protein 6.1 L Albumin Prealbumin Triglycerides Cholesterol LDL Cholesterol Direct HDL Cholesterol 25-OH Vitamin D Total PTH Intact Urine pH Urine WBC (Auto) Urine Creatinine Urine Total Protein Fluid Total Protein < 3.0 L Vancomycin Trough Rheumatoid Factor Complement C4 Miscellaneous Test Crossmatch 11/11/16 11/11/1611/12/17 06:59 09:50 04:00 WBC RBC Hgb Hct MCV MCH MCHC RDW Plt Count Lymph % (Auto) [place] % (Auto) Lymph # [place] # Baso # Seg Neutrophils % Seg Neuts % (Manual) Lymphocytes % (Manual) Monocytes % (Manual) Eosinophils % (Manual) Basophils % (Manual) Nucleated RBC % Seg Neutrophils # Seg Neutrophils # Man Lymphocytes # (Manual) Monocytes # (Manual) Eosinophils # (Manual) Basophils # (Manual) PT INR 1.18 H Fibrinogen dRVVT Confirm Interp Factor V Activity POC ABG pH POC ABG pCO2 POC ABG pO2 ABG pO2 ABG HCO3 ABG Base Excess ABG Hemoglobin Oxyhemoglobin Sodium 136 L 133 L Potassium Chloride 96.1 L 94.8 L Carbon Dioxide 21 L BUN 37 H 42 H Creatinine 1.8 H 2.0 H Glucose POC Glucose Lactic Acid Calcium Ionized Calcium Phosphorus Magnesium Direct Bilirubin AST ALT Alkaline Phosphatase Lactate Dehydrogenase Troponin T C-Reactive Protein Total Protein Albumin Prealbumin Triglycerides Cholesterol LDL Cholesterol Direct HDL Cholesterol 25-OH Vitamin D Total PTH Intact Urine pH Urine WBC (Auto) Urine Creatinine Urine Total Protein Fluid Total Protein Vancomycin Trough Rheumatoid Factor Complement C4 Miscellaneous Test Crossmatch 11/12/16 11/12/16 11/13/16 04:00 23:55 05:53 WBC RBC Hgb 8.9 L Hct 27.2 L MCV MCH MCHC RDW Plt Count Lymph % (Auto) [place] % (Auto) Lymph # [place] # Baso # Seg Neutrophils % Seg Neuts % (Manual) Lymphocytes % (Manual) Monocytes % (Manual) Eosinophils % (Manual) Basophils % (Manual) Nucleated RBC % Seg Neutrophils # Seg Neutrophils # Man Lymphocytes # (Manual) Monocytes # (Manual) Eosinophils # (Manual) Basophils # (Manual) PT INR Fibrinogen dRVVT Confirm Interp Factor V Activity POC ABG pH POC ABG pCO2 POC ABG pO2 ABG pO2 ABG HCO3 ABG Base Excess ABG Hemoglobin Oxyhemoglobin Sodium Potassium Chloride Carbon Dioxide BUN Creatinine Glucose POC Glucose 132 H 120 H Lactic Acid Calcium Ionized Calcium Phosphorus Magnesium Direct Bilirubin AST ALT Alkaline Phosphatase Lactate Dehydrogenase Troponin T C-Reactive Protein Total Protein Albumin Prealbumin Triglycerides Cholesterol LDL Cholesterol Direct HDL Cholesterol 25-OH Vitamin D Total PTH Intact Urine pH Urine WBC (Auto) Urine Creatinine Urine Total Protein Fluid Total Protein Vancomycin Trough Rheumatoid Factor Complement C4 Miscellaneous Test Crossmatch 11/13/16 11/13/16 11/13/16 11:43 17:09 23:41 WBC RBC Hgb Hct MCV MCH MCHC RDW Plt Count Lymph % (Auto) [place] % (Auto) Lymph # [place] # Baso # Seg Neutrophils % Seg Neuts % (Manual) Lymphocytes % (Manual) Monocytes % (Manual) Eosinophils % (Manual) Basophils % (Manual) Nucleated RBC % Seg Neutrophils # Seg Neutrophils # Man Lymphocytes # (Manual) Monocytes # (Manual) Eosinophils # (Manual) Basophils # (Manual) PT INR Fibrinogen dRVVT Confirm Interp Factor V Activity POC ABG pH POC ABG pCO2 POC ABG pO2 ABG pO2 ABG HCO3 ABG Base Excess ABG Hemoglobin Oxyhemoglobin Sodium Potassium Chloride Carbon Dioxide BUN Creatinine Glucose POC Glucose 114 H 113 H 108 H Lactic Acid Calcium Ionized Calcium Phosphorus Magnesium Direct Bilirubin AST ALT Alkaline Phosphatase Lactate Dehydrogenase Troponin T C-Reactive Protein Total Protein Albumin Prealbumin Triglycerides Cholesterol LDL Cholesterol Direct HDL Cholesterol 25-OH Vitamin D Total PTH Intact Urine pH Urine WBC (Auto) Urine Creatinine Urine Total Protein Fluid Total Protein Vancomycin Trough Rheumatoid Factor Complement C4 Miscellaneous Test Crossmatch 11/13/16 11/15/16 11/15/16 Unknown 00:37 03:30 WBC 11.2 H RBC 2.72 L Hgb 7.6 L Hct 23.4 L MCV MCH MCHC RDW 16.5 H Plt Count Lymph % (Auto) [place] % (Auto) Lymph # [place] # Baso # Seg Neutrophils % Seg Neuts % (Manual) Lymphocytes % (Manual) Monocytes % (Manual) Eosinophils % (Manual) Basophils % (Manual) Nucleated RBC % Seg Neutrophils # Seg Neutrophils # Man Lymphocytes # (Manual) Monocytes # (Manual) Eosinophils # (Manual) Basophils # (Manual) PT INR Fibrinogen dRVVT Confirm Interp Factor V Activity POC ABG pH POC ABG pCO2 POC ABG pO2 ABG pO2 ABG HCO3 ABG Base Excess ABG Hemoglobin Oxyhemoglobin Sodium 135 L Potassium Chloride 95.2 L Carbon Dioxide BUN 52 H Creatinine 2.2 H Glucose POC Glucose 108 H Lactic Acid Calcium Ionized Calcium Phosphorus Magnesium Direct Bilirubin AST ALT Alkaline Phosphatase Lactate Dehydrogenase Troponin T C-Reactive Protein Total Protein Albumin Prealbumin Triglycerides Cholesterol LDL Cholesterol Direct HDL Cholesterol 25-OH Vitamin D Total PTH Intact Urine pH Urine WBC (Auto) Urine Creatinine Urine Total Protein Fluid Total Protein Vancomycin Trough Rheumatoid Factor Complement C4 Miscellaneous Test Crossmatch 11/15/16 11/15/16 11/15/16 03:30 05:04 11:50 WBC RBC Hgb Hct MCV MCH MCHC RDW Plt Count Lymph % (Auto) [place] % (Auto) Lymph # [place] # Baso # Seg Neutrophils % Seg Neuts % (Manual) Lymphocytes % (Manual) Monocytes % (Manual) Eosinophils % (Manual) Basophils % (Manual) Nucleated RBC % Seg Neutrophils # Seg Neutrophils # Man Lymphocytes # (Manual) Monocytes # (Manual) Eosinophils # (Manual) Basophils # (Manual) PT INR Fibrinogen dRVVT Confirm Interp Factor V Activity POC ABG pH POC ABG pCO2 POC ABG pO2 ABG pO2 ABG HCO3 ABG Base Excess ABG Hemoglobin Oxyhemoglobin Sodium Potassium 3.4 L Chloride Carbon Dioxide BUN 25 H Creatinine 1.5 H Glucose 103 H POC Glucose 121 H 144 H Lactic Acid Calcium Ionized Calcium Phosphorus Magnesium Direct Bilirubin AST ALT Alkaline Phosphatase Lactate Dehydrogenase Troponin T C-Reactive Protein Total Protein Albumin Prealbumin Triglycerides Cholesterol LDL Cholesterol Direct HDL Cholesterol 25-OH Vitamin D Total PTH Intact Urine pH Urine WBC (Auto) Urine Creatinine Urine Total Protein Fluid Total Protein Vancomycin Trough Rheumatoid Factor Complement C4 Miscellaneous Test Crossmatch 11/15/16 11/15/16 11/16/16 21:28 23:20 11:44 WBC RBC Hgb Hct MCV MCH MCHC RDW Plt Count Lymph % (Auto) [place] % (Auto) Lymph # [place] # Baso # Seg Neutrophils % Seg Neuts % (Manual) Lymphocytes % (Manual) Monocytes % (Manual) Eosinophils % (Manual) Basophils % (Manual) Nucleated RBC % Seg Neutrophils # Seg Neutrophils # Man Lymphocytes # (Manual) Monocytes # (Manual) Eosinophils # (Manual) Basophils # (Manual) PT INR Fibrinogen dRVVT Confirm Interp Factor V Activity POC ABG pH 7.462 H POC ABG pCO2 POC ABG pO2 71 L ABG pO2 ABG HCO3 ABG Base Excess ABG Hemoglobin Oxyhemoglobin Sodium Potassium Chloride Carbon Dioxide BUN Creatinine Glucose POC Glucose 116 H 133 H Lactic Acid Calcium Ionized Calcium Phosphorus Magnesium Direct Bilirubin AST ALT Alkaline Phosphatase Lactate Dehydrogenase Troponin T C-Reactive Protein Total Protein Albumin Prealbumin Triglycerides Cholesterol LDL Cholesterol Direct HDL Cholesterol 25-OH Vitamin D Total PTH Intact Urine pH Urine WBC (Auto) Urine Creatinine Urine Total Protein Fluid Total Protein Vancomycin Trough Rheumatoid Factor Complement C4 Miscellaneous Test Crossmatch 11/16/16 11/16/16 11/16/16 12:20 17:05 23:35 WBC 11.7 H RBC 2.73 L Hgb 7.6 L Hct 23.7 L MCV MCH MCHC RDW 16.6 H Plt Count Lymph % (Auto) [place] % (Auto) Lymph # [place] # Baso # Seg Neutrophils % Seg Neuts % (Manual) Lymphocytes % (Manual) Monocytes % (Manual) Eosinophils % (Manual) Basophils % (Manual) Nucleated RBC % Seg Neutrophils # Seg Neutrophils # Man Lymphocytes # (Manual) Monocytes # (Manual) Eosinophils # (Manual) Basophils # (Manual) PT INR Fibrinogen dRVVT Confirm Interp Factor V Activity POC ABG pH POC ABG pCO2 POC ABG pO2 ABG pO2 ABG HCO3 ABG Base Excess ABG Hemoglobin Oxyhemoglobin Sodium Potassium Chloride Carbon Dioxide BUN Creatinine Glucose POC Glucose 154 H 125 H Lactic Acid Calcium Ionized Calcium Phosphorus Magnesium Direct Bilirubin AST ALT Alkaline Phosphatase Lactate Dehydrogenase Troponin T C-Reactive Protein Total Protein Albumin Prealbumin Triglycerides Cholesterol LDL Cholesterol Direct HDL Cholesterol 25-OH Vitamin D Total PTH Intact Urine pH Urine WBC (Auto) Urine Creatinine Urine Total Protein Fluid Total Protein Vancomycin Trough Rheumatoid Factor Complement C4 Miscellaneous Test Crossmatch 11/17/16 11/17/16 11/17/16 03:20 03:20 03:20 WBC RBC 2.55 L Hgb 7.3 L Hct 21.9 L MCV MCH MCHC RDW 16.6 H Plt Count Lymph % (Auto) [place] % (Auto) 11.5 H Lymph # [place] # 1.1 H Baso # Seg Neutrophils % Seg Neuts % (Manual) Lymphocytes % (Manual) Monocytes % (Manual) Eosinophils % (Manual) Basophils % (Manual) Nucleated RBC % Seg Neutrophils # Seg Neutrophils # Man Lymphocytes # (Manual) Monocytes # (Manual) Eosinophils # (Manual) Basophils # (Manual) PT 16.8 H INR 1.37 H Fibrinogen dRVVT Confirm Interp Factor V Activity POC ABG pH POC ABG pCO2 POC ABG pO2 ABG pO2 ABG HCO3 ABG Base Excess ABG Hemoglobin Oxyhemoglobin Sodium Potassium 3.5 L Chloride Carbon Dioxide BUN 21 H Creatinine Glucose POC Glucose Lactic Acid Calcium 7.9 L Ionized Calcium Phosphorus Magnesium Direct Bilirubin AST ALT Alkaline Phosphatase Lactate Dehydrogenase Troponin T C-Reactive Protein Total Protein Albumin Prealbumin Triglycerides Cholesterol LDL Cholesterol Direct HDL Cholesterol 25-OH Vitamin D Total PTH Intact Urine pH Urine WBC (Auto) Urine Creatinine Urine Total Protein Fluid Total Protein Vancomycin Trough Rheumatoid Factor Complement C4 Miscellaneous Test Crossmatch 11/17/16 11/17/16 11/17/16 06:34 11:21 21:22 WBC RBC Hgb Hct MCV MCH MCHC RDW Plt Count Lymph % (Auto) [place] % (Auto) Lymph # [place] # Baso # Seg Neutrophils % Seg Neuts % (Manual) Lymphocytes % (Manual) Monocytes % (Manual) Eosinophils % (Manual) Basophils % (Manual) Nucleated RBC % Seg Neutrophils # Seg Neutrophils # Man Lymphocytes # (Manual) Monocytes # (Manual) Eosinophils # (Manual) Basophils # (Manual) PT INR Fibrinogen dRVVT Confirm Interp Factor V Activity POC ABG pH 7.467 H POC ABG pCO2 POC ABG pO2 73 L ABG pO2 ABG HCO3 ABG Base Excess ABG Hemoglobin Oxyhemoglobin Sodium Potassium Chloride Carbon Dioxide BUN Creatinine Glucose POC Glucose 121 H 119 H Lactic Acid Calcium Ionized Calcium Phosphorus Magnesium Direct Bilirubin AST ALT Alkaline Phosphatase Lactate Dehydrogenase Troponin T C-Reactive Protein Total Protein Albumin Prealbumin Triglycerides Cholesterol LDL Cholesterol Direct HDL Cholesterol 25-OH Vitamin D Total PTH Intact Urine pH Urine WBC (Auto) Urine Creatinine Urine Total Protein Fluid Total Protein Vancomycin Trough Rheumatoid Factor Complement C4 Miscellaneous Test Crossmatch 11/18/16 11/18/16 11/19/16 12:16 17:19 00:00 WBC RBC Hgb Hct MCV MCH MCHC RDW Plt Count Lymph % (Auto) [place] % (Auto) Lymph # [place] # Baso # Seg Neutrophils % Seg Neuts % (Manual) Lymphocytes % (Manual) Monocytes % (Manual) Eosinophils % (Manual) Basophils % (Manual) Nucleated RBC % Seg Neutrophils # Seg Neutrophils # Man Lymphocytes # (Manual) Monocytes # (Manual) Eosinophils # (Manual) Basophils # (Manual) PT INR Fibrinogen dRVVT Confirm Interp Factor V Activity POC ABG pH POC ABG pCO2 POC ABG pO2 ABG pO2 ABG HCO3 ABG Base Excess ABG Hemoglobin Oxyhemoglobin Sodium Potassium Chloride Carbon Dioxide BUN Creatinine Glucose POC Glucose 124 H 162 H 139 H Lactic Acid Calcium Ionized Calcium Phosphorus Magnesium Direct Bilirubin AST ALT Alkaline Phosphatase Lactate Dehydrogenase Troponin T C-Reactive Protein Total Protein Albumin Prealbumin Triglycerides Cholesterol LDL Cholesterol Direct HDL Cholesterol 25-OH Vitamin D Total PTH Intact Urine pH Urine WBC (Auto) Urine Creatinine Urine Total Protein Fluid Total Protein Vancomycin Trough Rheumatoid Factor Complement C4 Miscellaneous Test Crossmatch 11/19/16 11/19/16 11/20/16 05:00 12:43 00:40 WBC RBC Hgb Hct MCV MCH MCHC RDW Plt Count Lymph % (Auto) [place] % (Auto) Lymph # [place] # Baso # Seg Neutrophils % Seg Neuts % (Manual) Lymphocytes % (Manual) Monocytes % (Manual) Eosinophils % (Manual) Basophils % (Manual) Nucleated RBC % Seg Neutrophils # Seg Neutrophils # Man Lymphocytes # (Manual) Monocytes # (Manual) Eosinophils # (Manual) Basophils # (Manual) PT INR Fibrinogen dRVVT Confirm Interp Factor V Activity POC ABG pH POC ABG pCO2 POC ABG pO2 ABG pO2 ABG HCO3 ABG Base Excess ABG Hemoglobin Oxyhemoglobin Sodium Potassium Chloride Carbon Dioxide BUN Creatinine Glucose POC Glucose 110 H 125 H 136 H Lactic Acid Calcium Ionized Calcium Phosphorus Magnesium Direct Bilirubin AST ALT Alkaline Phosphatase Lactate Dehydrogenase Troponin T C-Reactive Protein Total Protein Albumin Prealbumin Triglycerides Cholesterol LDL Cholesterol Direct HDL Cholesterol 25-OH Vitamin D Total PTH Intact Urine pH Urine WBC (Auto) Urine Creatinine Urine Total Protein Fluid Total Protein Vancomycin Trough Rheumatoid Factor Complement C4 Miscellaneous Test Crossmatch 11/20/16 11/20/16 11/20/16 05:00 05:00 05:51 WBC 13.1 H RBC 2.74 L Hgb 7.7 L Hct 23.6 L MCV MCH MCHC RDW 16.9 H Plt Count Lymph % (Auto) [place] % (Auto) 10.8 H Lymph # [place] # 1.4 H Baso # Seg Neutrophils % Seg Neuts % (Manual) Lymphocytes % (Manual) Monocytes % (Manual) Eosinophils % (Manual) Basophils % (Manual) Nucleated RBC % Seg Neutrophils # 7.9 H Seg Neutrophils # Man Lymphocytes # (Manual) Monocytes # (Manual) Eosinophils # (Manual) Basophils # (Manual) PT INR Fibrinogen dRVVT Confirm Interp Factor V Activity POC ABG pH POC ABG pCO2 POC ABG pO2 ABG pO2 ABG HCO3 ABG Base Excess ABG Hemoglobin Oxyhemoglobin Sodium Potassium Chloride Carbon Dioxide BUN 31 H Creatinine 1.8 H Glucose 129 H POC Glucose 133 H Lactic Acid Calcium Ionized Calcium Phosphorus Magnesium Direct Bilirubin AST ALT Alkaline Phosphatase Lactate Dehydrogenase Troponin T C-Reactive Protein Total Protein Albumin Prealbumin Triglycerides Cholesterol LDL Cholesterol Direct HDL Cholesterol 25-OH Vitamin D Total PTH Intact Urine pH Urine WBC (Auto) Urine Creatinine Urine Total Protein Fluid Total Protein Vancomycin Trough Rheumatoid Factor Complement C4 Miscellaneous Test Crossmatch 11/20/16 11/20/16 11/21/16 12:40 18:10 01:20 WBC RBC Hgb Hct MCV MCH MCHC RDW Plt Count Lymph % (Auto) [place] % (Auto) Lymph # [place] # Baso # Seg Neutrophils % Seg Neuts % (Manual) Lymphocytes % (Manual) Monocytes % (Manual) Eosinophils % (Manual) Basophils % (Manual) Nucleated RBC % Seg Neutrophils # Seg Neutrophils # Man Lymphocytes # (Manual) Monocytes # (Manual) Eosinophils # (Manual) Basophils # (Manual) PT INR Fibrinogen dRVVT Confirm Interp Factor V Activity POC ABG pH POC ABG pCO2 POC ABG pO2 ABG pO2 ABG HCO3 ABG Base Excess ABG Hemoglobin Oxyhemoglobin Sodium Potassium Chloride Carbon Dioxide BUN Creatinine Glucose POC Glucose 134 H 138 H 136 H Lactic Acid Calcium Ionized Calcium Phosphorus Magnesium Direct Bilirubin AST ALT Alkaline Phosphatase Lactate Dehydrogenase Troponin T C-Reactive Protein Total Protein Albumin Prealbumin Triglycerides Cholesterol LDL Cholesterol Direct HDL Cholesterol 25-OH Vitamin D Total PTH Intact Urine pH Urine WBC (Auto) Urine Creatinine Urine Total Protein Fluid Total Protein Vancomycin Trough Rheumatoid Factor Complement C4 Miscellaneous Test Crossmatch 11/21/16 11/21/16 11/21/16 07:04 07:45 07:45 WBC 22.0 H RBC 2.91 L Hgb 8.2 L Hct 25.4 L MCV MCH MCHC RDW 17.1 H Plt Count Lymph % (Auto) [place] % (Auto) Lymph # [place] # Baso # Seg Neutrophils % Seg Neuts % (Manual) Lymphocytes % (Manual) 8.0 L Monocytes % (Manual) Eosinophils % (Manual) Basophils % (Manual) Nucleated RBC % Seg Neutrophils # Seg Neutrophils # Man 14.7 H Lymphocytes # (Manual) Monocytes # (Manual) 1.1 H Eosinophils # (Manual) Basophils # (Manual) PT INR Fibrinogen dRVVT Confirm Interp Factor V Activity POC ABG pH POC ABG pCO2 POC ABG pO2 ABG pO2 ABG HCO3 ABG Base Excess ABG Hemoglobin Oxyhemoglobin Sodium Potassium Chloride Carbon Dioxide BUN 42 H Creatinine 2.0 H Glucose POC Glucose 108 H Lactic Acid Calcium Ionized Calcium Phosphorus Magnesium Direct Bilirubin AST ALT Alkaline Phosphatase Lactate Dehydrogenase Troponin T C-Reactive Protein Total Protein Albumin Prealbumin Triglycerides Cholesterol LDL Cholesterol Direct HDL Cholesterol 25-OH Vitamin D Total PTH Intact Urine pH Urine WBC (Auto) Urine Creatinine Urine Total Protein Fluid Total Protein Vancomycin Trough Rheumatoid Factor Complement C4 Miscellaneous Test Crossmatch 11/21/16 11/21/16 11/21/16 08:38 10:09 11:20 WBC RBC Hgb Hct MCV MCH MCHC RDW Plt Count Lymph % (Auto) [place] % (Auto) Lymph # [place] # Baso # Seg Neutrophils % Seg Neuts % (Manual) Lymphocytes % (Manual) Monocytes % (Manual) Eosinophils % (Manual) Basophils % (Manual) Nucleated RBC % Seg Neutrophils # Seg Neutrophils # Man Lymphocytes # (Manual) Monocytes # (Manual) Eosinophils # (Manual) Basophils # (Manual) PT INR Fibrinogen dRVVT Confirm Interp Factor V Activity POC ABG pH 7.346 L POC ABG pCO2 34.4 L POC ABG pO2 314 H ABG pO2 ABG HCO3 ABG Base Excess ABG Hemoglobin Oxyhemoglobin Sodium Potassium Chloride Carbon Dioxide BUN Creatinine Glucose POC Glucose 195 H 153 H Lactic Acid Calcium Ionized Calcium Phosphorus Magnesium Direct Bilirubin AST ALT Alkaline Phosphatase Lactate Dehydrogenase Troponin T C-Reactive Protein Total Protein Albumin Prealbumin Triglycerides Cholesterol LDL Cholesterol Direct HDL Cholesterol 25-OH Vitamin D Total PTH Intact Urine pH Urine WBC (Auto) Urine Creatinine Urine Total Protein Fluid Total Protein Vancomycin Trough Rheumatoid Factor Complement C4 Miscellaneous Test Crossmatch 11/21/16 11/22/16 11/22/16 23:37 04:48 05:00 WBC 29.7 H RBC 2.73 L Hgb 7.5 L Hct 24.2 L MCV MCH 27 L MCHC RDW 17.4 H Plt Count Lymph % (Auto) [place] % (Auto) Lymph # [place] # Baso # Seg Neutrophils % Seg Neuts % (Manual) Lymphocytes % (Manual) 7.0 L Monocytes % (Manual) Eosinophils % (Manual) Basophils % (Manual) Nucleated RBC % Seg Neutrophils # Seg Neutrophils # Man 15.4 H Lymphocytes # (Manual) Monocytes # (Manual) Eosinophils # (Manual) Basophils # (Manual) PT INR Fibrinogen dRVVT Confirm Interp Factor V Activity POC ABG pH POC ABG pCO2 24.6 L POC ABG pO2 189 H ABG pO2 ABG HCO3 ABG Base Excess ABG Hemoglobin Oxyhemoglobin Sodium Potassium Chloride Carbon Dioxide BUN Creatinine Glucose POC Glucose 65 L Lactic Acid Calcium Ionized Calcium Phosphorus Magnesium Direct Bilirubin AST ALT Alkaline Phosphatase Lactate Dehydrogenase Troponin T C-Reactive Protein Total Protein Albumin Prealbumin Triglycerides Cholesterol LDL Cholesterol Direct HDL Cholesterol 25-OH Vitamin D Total PTH Intact Urine pH Urine WBC (Auto) Urine Creatinine Urine Total Protein Fluid Total Protein Vancomycin Trough Rheumatoid Factor Complement C4 Miscellaneous Test Crossmatch 11/22/16 11/23/16 11/23/16 05:00 03:44 04:06 WBC RBC 2.52 L Hgb 7.2 L Hct 21.5 L MCV MCH MCHC RDW 17.1 H Plt Count Lymph % (Auto) [place] % (Auto) 12.4 H Lymph # [place] # 1.4 H Baso # Seg Neutrophils % Seg Neuts % (Manual) Lymphocytes % (Manual) Monocytes % (Manual) Eosinophils % (Manual) Basophils % (Manual) Nucleated RBC % Seg Neutrophils # Seg Neutrophils # Man Lymphocytes # (Manual) Monocytes # (Manual) Eosinophils # (Manual) Basophils # (Manual) PT INR Fibrinogen dRVVT Confirm Interp Factor V Activity POC ABG pH 7.493 H POC ABG pCO2 29.5 L POC ABG pO2 49 L ABG pO2 ABG HCO3 ABG Base Excess ABG Hemoglobin Oxyhemoglobin Sodium 134 L Potassium Chloride 95.9 L Carbon Dioxide 14 L D BUN 51 H Creatinine 2.6 H Glucose POC Glucose Lactic Acid Calcium Ionized Calcium Phosphorus Magnesium Direct Bilirubin AST ALT Alkaline Phosphatase Lactate Dehydrogenase Troponin T C-Reactive Protein Total Protein Albumin Prealbumin Triglycerides Cholesterol LDL Cholesterol Direct HDL Cholesterol 25-OH Vitamin D Total PTH Intact Urine pH Urine WBC (Auto) Urine Creatinine Urine Total Protein Fluid Total Protein Vancomycin Trough Rheumatoid Factor Complement C4 Miscellaneous Test Crossmatch 11/23/16 11/23/16 11/24/16 04:06 11:29 06:39 WBC RBC Hgb Hct MCV MCH MCHC RDW Plt Count Lymph % (Auto) [place] % (Auto) Lymph # [place] # Baso # Seg Neutrophils % Seg Neuts % (Manual) Lymphocytes % (Manual) Monocytes % (Manual) Eosinophils % (Manual) Basophils % (Manual) Nucleated RBC % Seg Neutrophils # Seg Neutrophils # Man Lymphocytes # (Manual) Monocytes # (Manual) Eosinophils # (Manual) Basophils # (Manual) PT INR Fibrinogen dRVVT Confirm Interp Factor V Activity POC ABG pH POC ABG pCO2 POC ABG pO2 ABG pO2 ABG HCO3 ABG Base Excess ABG Hemoglobin Oxyhemoglobin Sodium 136 L Potassium Chloride 95.2 L Carbon Dioxide BUN 60 H Creatinine 2.9 H Glucose POC Glucose 69 L 305 H Lactic Acid Calcium Ionized Calcium Phosphorus Magnesium 1.60 L Direct Bilirubin AST ALT Alkaline Phosphatase Lactate Dehydrogenase Troponin T C-Reactive Protein Total Protein Albumin Prealbumin Triglycerides Cholesterol LDL Cholesterol Direct HDL Cholesterol 25-OH Vitamin D Total PTH Intact Urine pH Urine WBC (Auto) Urine Creatinine Urine Total Protein Fluid Total Protein Vancomycin Trough Rheumatoid Factor Complement C4 Miscellaneous Test Crossmatch 11/24/16 11/24/16 11/24/16 06:43 08:08 08:08 WBC 11.2 H RBC 2.47 L Hgb 6.8 L Hct 20.6 L MCV MCH MCHC RDW 17.0 H Plt Count Lymph % (Auto) [place] % (Auto) 10.3 H Lymph # [place] # 1.2 H Baso # Seg Neutrophils % Seg Neuts % (Manual) Lymphocytes % (Manual) Monocytes % (Manual) Eosinophils % (Manual) Basophils % (Manual) Nucleated RBC % Seg Neutrophils # Seg Neutrophils # Man Lymphocytes # (Manual) Monocytes # (Manual) Eosinophils # (Manual) Basophils # (Manual) PT INR Fibrinogen dRVVT Confirm Interp Factor V Activity POC ABG pH POC ABG pCO2 POC ABG pO2 ABG pO2 ABG HCO3 ABG Base Excess ABG Hemoglobin Oxyhemoglobin Sodium 135 L Potassium Chloride 96.3 L Carbon Dioxide BUN 61 H Creatinine 3.1 H Glucose POC Glucose 62 L Lactic Acid Calcium 8.2 L Ionized Calcium Phosphorus Magnesium Direct Bilirubin AST ALT Alkaline Phosphatase Lactate Dehydrogenase Troponin T C-Reactive Protein Total Protein Albumin Prealbumin Triglycerides Cholesterol LDL Cholesterol Direct HDL Cholesterol 25-OH Vitamin D Total PTH Intact Urine pH Urine WBC (Auto) Urine Creatinine Urine Total Protein Fluid Total Protein Vancomycin Trough Rheumatoid Factor Complement C4 Miscellaneous Test Crossmatch 11/24/16 11/24/16 11/24/16 08:34 11:20 12:41 WBC RBC Hgb Hct MCV MCH MCHC RDW Plt Count Lymph % (Auto) [place] % (Auto) Lymph # [place] # Baso # Seg Neutrophils % Seg Neuts % (Manual) Lymphocytes % (Manual) Monocytes % (Manual) Eosinophils % (Manual) Basophils % (Manual) Nucleated RBC % Seg Neutrophils # Seg Neutrophils # Man Lymphocytes # (Manual) Monocytes # (Manual) Eosinophils # (Manual) Basophils # (Manual) PT INR Fibrinogen dRVVT Confirm Interp Factor V Activity POC ABG pH POC ABG pCO2 POC ABG pO2 ABG pO2 ABG HCO3 ABG Base Excess ABG Hemoglobin Oxyhemoglobin Sodium Potassium Chloride Carbon Dioxide BUN Creatinine Glucose POC Glucose 108 H Lactic Acid Calcium Ionized Calcium Phosphorus Magnesium 1.60 L Direct Bilirubin AST ALT Alkaline Phosphatase Lactate Dehydrogenase Troponin T C-Reactive Protein Total Protein Albumin Prealbumin Triglycerides Cholesterol LDL Cholesterol Direct HDL Cholesterol 25-OH Vitamin D Total PTH Intact Urine pH Urine WBC (Auto) Urine Creatinine Urine Total Protein Fluid Total Protein Vancomycin Trough Rheumatoid Factor Complement C4 Miscellaneous Test Crossmatch See Detail 11/25/16 11/25/16 11/25/16 00:03 04:42 04:42 WBC RBC 3.03 L Hgb 8.6 L Hct 25.3 L MCV MCH MCHC RDW 16.2 H Plt Count Lymph % (Auto) [place] % (Auto) 8.1 H Lymph # [place] # Baso # Seg Neutrophils % 71.3 H Seg Neuts % (Manual) Lymphocytes % (Manual) Monocytes % (Manual) Eosinophils % (Manual) Basophils % (Manual) Nucleated RBC % Seg Neutrophils # Seg Neutrophils # Man Lymphocytes # (Manual) Monocytes # (Manual) Eosinophils # (Manual) Basophils # (Manual) PT INR Fibrinogen dRVVT Confirm Interp Factor V Activity POC ABG pH POC ABG pCO2 POC ABG pO2 ABG pO2 ABG HCO3 ABG Base Excess ABG Hemoglobin Oxyhemoglobin Sodium Potassium Chloride Carbon Dioxide BUN 61 H Creatinine 3.0 H Glucose 102 H POC Glucose 113 H Lactic Acid Calcium 8.2 L Ionized Calcium Phosphorus Magnesium Direct Bilirubin AST ALT Alkaline Phosphatase 142 H Lactate Dehydrogenase Troponin T C-Reactive Protein Total Protein 5.7 L Albumin 1.5 L Prealbumin Triglycerides Cholesterol LDL Cholesterol Direct HDL Cholesterol 25-OH Vitamin D Total PTH Intact Urine pH Urine WBC (Auto) Urine Creatinine Urine Total Protein Fluid Total Protein Vancomycin Trough Rheumatoid Factor Complement C4 Miscellaneous Test Crossmatch 11/25/16 11/25/16 11/25/16 05:12 11:31 14:12 WBC RBC Hgb Hct MCV MCH MCHC RDW Plt Count Lymph % (Auto) [place] % (Auto) Lymph # [place] # Baso # Seg Neutrophils % Seg Neuts % (Manual) Lymphocytes % (Manual) Monocytes % (Manual) Eosinophils % (Manual) Basophils % (Manual) Nucleated RBC % Seg Neutrophils # Seg Neutrophils # Man Lymphocytes # (Manual) Monocytes # (Manual) Eosinophils # (Manual) Basophils # (Manual) PT INR Fibrinogen dRVVT Confirm Interp Factor V Activity POC ABG pH 7.487 H POC ABG pCO2 POC ABG pO2 153 H ABG pO2 ABG HCO3 ABG Base Excess ABG Hemoglobin Oxyhemoglobin Sodium Potassium Chloride Carbon Dioxide BUN Creatinine Glucose POC Glucose 131 H 140 H Lactic Acid Calcium Ionized Calcium Phosphorus Magnesium Direct Bilirubin AST ALT Alkaline Phosphatase Lactate Dehydrogenase Troponin T C-Reactive Protein Total Protein Albumin Prealbumin Triglycerides Cholesterol LDL Cholesterol Direct HDL Cholesterol 25-OH Vitamin D Total PTH Intact Urine pH Urine WBC (Auto) Urine Creatinine Urine Total Protein Fluid Total Protein Vancomycin Trough Rheumatoid Factor Complement C4 Miscellaneous Test Crossmatch 11/25/16 11/26/16 11/26/16 17:23 00:09 05:13 WBC RBC 2.94 L Hgb 8.4 L Hct 24.6 L MCV MCH MCHC RDW 16.4 H Plt Count Lymph % (Auto) [place] % (Auto) 12.3 H Lymph # [place] # 1.1 H Baso # Seg Neutrophils % Seg Neuts % (Manual) Lymphocytes % (Manual) Monocytes % (Manual) Eosinophils % (Manual) Basophils % (Manual) Nucleated RBC % Seg Neutrophils # Seg Neutrophils # Man Lymphocytes # (Manual) Monocytes # (Manual) Eosinophils # (Manual) Basophils # (Manual) PT INR Fibrinogen dRVVT Confirm Interp Factor V Activity POC ABG pH POC ABG pCO2 POC ABG pO2 ABG pO2 ABG HCO3 ABG Base Excess ABG Hemoglobin Oxyhemoglobin Sodium Potassium Chloride Carbon Dioxide BUN Creatinine Glucose POC Glucose 146 H 112 H Lactic Acid Calcium Ionized Calcium Phosphorus Magnesium Direct Bilirubin AST ALT Alkaline Phosphatase Lactate Dehydrogenase Troponin T C-Reactive Protein Total Protein Albumin Prealbumin Triglycerides Cholesterol LDL Cholesterol Direct HDL Cholesterol 25-OH Vitamin D Total PTH Intact Urine pH Urine WBC (Auto) Urine Creatinine Urine Total Protein Fluid Total Protein Vancomycin Trough Rheumatoid Factor Complement C4 Miscellaneous Test Crossmatch 11/26/16 11/26/16 11/26/16 05:13 05:28 11:53 WBC RBC Hgb Hct MCV MCH MCHC RDW Plt Count Lymph % (Auto) [place] % (Auto) Lymph # [place] # Baso # Seg Neutrophils % Seg Neuts % (Manual) Lymphocytes % (Manual) Monocytes % (Manual) Eosinophils % (Manual) Basophils % (Manual) Nucleated RBC % Seg Neutrophils # Seg Neutrophils # Man Lymphocytes # (Manual) Monocytes # (Manual) Eosinophils # (Manual) Basophils # (Manual) PT INR Fibrinogen dRVVT Confirm Interp Factor V Activity POC ABG pH POC ABG pCO2 POC ABG pO2 ABG pO2 ABG HCO3 ABG Base Excess ABG Hemoglobin Oxyhemoglobin Sodium Potassium Chloride 97.8 L Carbon Dioxide BUN 37 H Creatinine 2.0 H Glucose 109 H POC Glucose 117 H 111 H Lactic Acid Calcium 7.9 L Ionized Calcium Phosphorus 1.80 L D Magnesium Direct Bilirubin AST ALT Alkaline Phosphatase Lactate Dehydrogenase Troponin T C-Reactive Protein Total Protein Albumin Prealbumin Triglycerides Cholesterol LDL Cholesterol Direct HDL Cholesterol 25-OH Vitamin D Total PTH Intact Urine pH Urine WBC (Auto) Urine Creatinine Urine Total Protein Fluid Total Protein Vancomycin Trough Rheumatoid Factor Complement C4 Miscellaneous Test Crossmatch 11/26/16 11/27/16 11/27/16 17:14 04:50 06:02 WBC RBC Hgb Hct MCV MCH MCHC RDW Plt Count Lymph % (Auto) [place] % (Auto) Lymph # [place] # Baso # Seg Neutrophils % Seg Neuts % (Manual) Lymphocytes % (Manual) Monocytes % (Manual) Eosinophils % (Manual) Basophils % (Manual) Nucleated RBC % Seg Neutrophils # Seg Neutrophils # Man Lymphocytes # (Manual) Monocytes # (Manual) Eosinophils # (Manual) Basophils # (Manual) PT INR Fibrinogen dRVVT Confirm Interp Factor V Activity POC ABG pH POC ABG pCO2 POC ABG pO2 ABG pO2 75.2 L ABG HCO3 26.4 H ABG Base Excess ABG Hemoglobin 7.6 L Oxyhemoglobin 94.8 L Sodium Potassium Chloride Carbon Dioxide BUN 49 H Creatinine 2.3 H Glucose POC Glucose 115 H Lactic Acid Calcium Ionized Calcium Phosphorus 1.50 L Magnesium Direct Bilirubin AST ALT Alkaline Phosphatase Lactate Dehydrogenase Troponin T C-Reactive Protein Total Protein Albumin Prealbumin Triglycerides Cholesterol LDL Cholesterol Direct HDL Cholesterol 25-OH Vitamin D Total PTH Intact Urine pH Urine WBC (Auto) Urine Creatinine Urine Total Protein Fluid Total Protein Vancomycin Trough Rheumatoid Factor Complement C4 Miscellaneous Test Crossmatch 11/27/16 11/27/16 11/27/16 06:02 11:25 17:25 WBC 11.6 H RBC 2.75 L Hgb 7.6 L Hct 23.4 L MCV MCH MCHC RDW 16.5 H Plt Count Lymph % (Auto) [place] % (Auto) Lymph # [place] # Baso # Seg Neutrophils % Seg Neuts % (Manual) Lymphocytes % (Manual) Monocytes % (Manual) Eosinophils % (Manual) Basophils % (Manual) Nucleated RBC % Seg Neutrophils # Seg Neutrophils # Man Lymphocytes # (Manual) Monocytes # (Manual) Eosinophils # (Manual) Basophils # (Manual) PT INR Fibrinogen dRVVT Confirm Interp Factor V Activity POC ABG pH POC ABG pCO2 POC ABG pO2 ABG pO2 ABG HCO3 ABG Base Excess ABG Hemoglobin Oxyhemoglobin Sodium Potassium Chloride Carbon Dioxide BUN Creatinine Glucose POC Glucose 114 H 126 H Lactic Acid Calcium Ionized Calcium Phosphorus Magnesium Direct Bilirubin AST ALT Alkaline Phosphatase Lactate Dehydrogenase Troponin T C-Reactive Protein Total Protein Albumin Prealbumin Triglycerides Cholesterol LDL Cholesterol Direct HDL Cholesterol 25-OH Vitamin D Total PTH Intact Urine pH Urine WBC (Auto) Urine Creatinine Urine Total Protein Fluid Total Protein Vancomycin Trough Rheumatoid Factor Complement C4 Miscellaneous Test Crossmatch 11/28/16 11/28/16 11/28/16 04:45 05:33 05:44 WBC RBC Hgb Hct MCV MCH MCHC RDW Plt Count Lymph % (Auto) [place] % (Auto) Lymph # [place] # Baso # Seg Neutrophils % Seg Neuts % (Manual) Lymphocytes % (Manual) Monocytes % (Manual) Eosinophils % (Manual) Basophils % (Manual) Nucleated RBC % Seg Neutrophils # Seg Neutrophils # Man Lymphocytes # (Manual) Monocytes # (Manual) Eosinophils # (Manual) Basophils # (Manual) PT INR Fibrinogen dRVVT Confirm Interp Factor V Activity POC ABG pH POC ABG pCO2 POC ABG pO2 ABG pO2 99.3 H ABG HCO3 ABG Base Excess ABG Hemoglobin 8.3 L Oxyhemoglobin Sodium Potassium Chloride Carbon Dioxide BUN 63 H Creatinine 2.4 H Glucose 102 H POC Glucose 108 H Lactic Acid Calcium Ionized Calcium Phosphorus 1.80 L Magnesium Direct Bilirubin AST ALT Alkaline Phosphatase Lactate Dehydrogenase Troponin T C-Reactive Protein Total Protein Albumin Prealbumin Triglycerides Cholesterol LDL Cholesterol Direct HDL Cholesterol 25-OH Vitamin D Total PTH Intact Urine pH Urine WBC (Auto) Urine Creatinine Urine Total Protein Fluid Total Protein Vancomycin Trough Rheumatoid Factor Complement C4 Miscellaneous Test Crossmatch 11/28/16 11/28/16 11/28/16 12:31 16:09 23:46 WBC RBC Hgb Hct MCV MCH MCHC RDW Plt Count Lymph % (Auto) [place] % (Auto) Lymph # [place] # Baso # Seg Neutrophils % Seg Neuts % (Manual) Lymphocytes % (Manual) Monocytes % (Manual) Eosinophils % (Manual) Basophils % (Manual) Nucleated RBC % Seg Neutrophils # Seg Neutrophils # Man Lymphocytes # (Manual) Monocytes # (Manual) Eosinophils # (Manual) Basophils # (Manual) PT INR Fibrinogen dRVVT Confirm Interp Factor V Activity POC ABG pH POC ABG pCO2 POC ABG pO2 ABG pO2 ABG HCO3 ABG Base Excess ABG Hemoglobin Oxyhemoglobin Sodium Potassium Chloride Carbon Dioxide BUN Creatinine Glucose POC Glucose 126 H 111 H 119 H Lactic Acid Calcium Ionized Calcium Phosphorus Magnesium Direct Bilirubin AST ALT Alkaline Phosphatase Lactate Dehydrogenase Troponin T C-Reactive Protein Total Protein Albumin Prealbumin Triglycerides Cholesterol LDL Cholesterol Direct HDL Cholesterol 25-OH Vitamin D Total PTH Intact Urine pH Urine WBC (Auto) Urine Creatinine Urine Total Protein Fluid Total Protein Vancomycin Trough Rheumatoid Factor Complement C4 Miscellaneous Test Crossmatch 11/29/16 11/29/16 11/29/16 03:33 04:52 05:10 WBC RBC Hgb Hct MCV MCH MCHC RDW Plt Count Lymph % (Auto) [place] % (Auto) Lymph # [place] # Baso # Seg Neutrophils % Seg Neuts % (Manual) Lymphocytes % (Manual) Monocytes % (Manual) Eosinophils % (Manual) Basophils % (Manual) Nucleated RBC % Seg Neutrophils # Seg Neutrophils # Man Lymphocytes # (Manual) Monocytes # (Manual) Eosinophils # (Manual) Basophils # (Manual) PT INR Fibrinogen dRVVT Confirm Interp Factor V Activity POC ABG pH POC ABG pCO2 POC ABG pO2 ABG pO2 ABG HCO3 ABG Base Excess ABG Hemoglobin 7.0 L Oxyhemoglobin 94.9 L Sodium Potassium Chloride Carbon Dioxide BUN 73 H Creatinine 2.7 H Glucose POC Glucose 108 H Lactic Acid Calcium Ionized Calcium Phosphorus Magnesium Direct Bilirubin AST ALT Alkaline Phosphatase Lactate Dehydrogenase Troponin T C-Reactive Protein Total Protein Albumin Prealbumin Triglycerides Cholesterol LDL Cholesterol Direct HDL Cholesterol 25-OH Vitamin D Total PTH Intact Urine pH Urine WBC (Auto) Urine Creatinine Urine Total Protein Fluid Total Protein Vancomycin Trough Rheumatoid Factor Complement C4 Miscellaneous Test Crossmatch 11/29/16 11/29/16 11/29/16 12:16 18:05 23:46 WBC RBC Hgb Hct MCV MCH MCHC RDW Plt Count Lymph % (Auto) [place] % (Auto) Lymph # [place] # Baso # Seg Neutrophils % Seg Neuts % (Manual) Lymphocytes % (Manual) Monocytes % (Manual) Eosinophils % (Manual) Basophils % (Manual) Nucleated RBC % Seg Neutrophils # Seg Neutrophils # Man Lymphocytes # (Manual) Monocytes # (Manual) Eosinophils # (Manual) Basophils # (Manual) PT INR Fibrinogen dRVVT Confirm Interp Factor V Activity POC ABG pH POC ABG pCO2 POC ABG pO2 ABG pO2 ABG HCO3 ABG Base Excess ABG Hemoglobin Oxyhemoglobin Sodium Potassium Chloride Carbon Dioxide BUN Creatinine Glucose POC Glucose 133 H 146 H 141 H Lactic Acid Calcium Ionized Calcium Phosphorus Magnesium Direct Bilirubin AST ALT Alkaline Phosphatase Lactate Dehydrogenase Troponin T C-Reactive Protein Total Protein Albumin Prealbumin Triglycerides Cholesterol LDL Cholesterol Direct HDL Cholesterol 25-OH Vitamin D Total PTH Intact Urine pH Urine WBC (Auto) Urine Creatinine Urine Total Protein Fluid Total Protein Vancomycin Trough Rheumatoid Factor Complement C4 Miscellaneous Test Crossmatch 11/30/16 11/30/16 11/30/16 04:17 04:17 04:32 WBC 12.0 H RBC 2.80 L Hgb 7.8 L Hct 23.6 L MCV MCH MCHC RDW 16.6 H Plt Count Lymph % (Auto) [place] % (Auto) 11.3 H Lymph # [place] # 1.4 H Baso # Seg Neutrophils % Seg Neuts % (Manual) Lymphocytes % (Manual) Monocytes % (Manual) Eosinophils % (Manual) Basophils % (Manual) Nucleated RBC % Seg Neutrophils # 8.2 H Seg Neutrophils # Man Lymphocytes # (Manual) Monocytes # (Manual) Eosinophils # (Manual) Basophils # (Manual) PT INR Fibrinogen dRVVT Confirm Interp Factor V Activity POC ABG pH POC ABG pCO2 POC ABG pO2 ABG pO2 ABG HCO3 ABG Base Excess ABG Hemoglobin Oxyhemoglobin Sodium 169 H* D Potassium 5.1 H Chloride 121.5 H Carbon Dioxide BUN 34 H Creatinine 1.3 H D Glucose 133 H POC Glucose 131 H Lactic Acid Calcium 10.3 H Ionized Calcium Phosphorus Magnesium Direct Bilirubin AST ALT Alkaline Phosphatase Lactate Dehydrogenase Troponin T C-Reactive Protein Total Protein Albumin Prealbumin Triglycerides Cholesterol LDL Cholesterol Direct HDL Cholesterol 25-OH Vitamin D Total PTH Intact Urine pH Urine WBC (Auto) Urine Creatinine Urine Total Protein Fluid Total Protein Vancomycin Trough Rheumatoid Factor Complement C4 Miscellaneous Test Crossmatch 11/30/16 11/30/16 11/30/16 05:45 11:10 17:26 WBC RBC Hgb Hct MCV MCH MCHC RDW Plt Count Lymph % (Auto) [place] % (Auto) Lymph # [place] # Baso # Seg Neutrophils % Seg Neuts % (Manual) Lymphocytes % (Manual) Monocytes % (Manual) Eosinophils % (Manual) Basophils % (Manual) Nucleated RBC % Seg Neutrophils # Seg Neutrophils # Man Lymphocytes # (Manual) Monocytes # (Manual) Eosinophils # (Manual) Basophils # (Manual) PT INR Fibrinogen dRVVT Confirm Interp Factor V Activity POC ABG pH POC ABG pCO2 POC ABG pO2 ABG pO2 ABG HCO3 ABG Base Excess ABG Hemoglobin Oxyhemoglobin Sodium Potassium Chloride Carbon Dioxide BUN 45 H Creatinine 1.6 H Glucose 131 H POC Glucose 146 H 134 H Lactic Acid Calcium Ionized Calcium Phosphorus Magnesium Direct Bilirubin AST ALT Alkaline Phosphatase Lactate Dehydrogenase Troponin T C-Reactive Protein Total Protein Albumin Prealbumin Triglycerides Cholesterol LDL Cholesterol Direct HDL Cholesterol 25-OH Vitamin D Total PTH Intact Urine pH Urine WBC (Auto) Urine Creatinine Urine Total Protein Fluid Total Protein Vancomycin Trough Rheumatoid Factor Complement C4 Miscellaneous Test Crossmatch 11/30/16 12/01/16 12/01/16 23:35 00:06 03:35 WBC RBC Hgb Hct MCV MCH MCHC RDW Plt Count Lymph % (Auto) [place] % (Auto) Lymph # [place] # Baso # Seg Neutrophils % Seg Neuts % (Manual) Lymphocytes % (Manual) Monocytes % (Manual) Eosinophils % (Manual) Basophils % (Manual) Nucleated RBC % Seg Neutrophils # Seg Neutrophils # Man Lymphocytes # (Manual) Monocytes # (Manual) Eosinophils # (Manual) Basophils # (Manual) PT INR Fibrinogen dRVVT Confirm Interp Factor V Activity POC ABG pH POC ABG pCO2 POC ABG pO2 ABG pO2 ABG HCO3 ABG Base Excess ABG Hemoglobin 6.9 L Oxyhemoglobin Sodium Potassium Chloride Carbon Dioxide BUN 58 H Creatinine 1.8 H Glucose 146 H POC Glucose 151 H Lactic Acid Calcium Ionized Calcium Phosphorus Magnesium Direct Bilirubin AST ALT Alkaline Phosphatase Lactate Dehydrogenase Troponin T C-Reactive Protein Total Protein Albumin Prealbumin Triglycerides Cholesterol LDL Cholesterol Direct HDL Cholesterol 25-OH Vitamin D Total PTH Intact Urine pH Urine WBC (Auto) Urine Creatinine Urine Total Protein Fluid Total Protein Vancomycin Trough Rheumatoid Factor Complement C4 Miscellaneous Test Crossmatch 12/01/16 12/01/16 12/01/16 03:35 05:47 11:52 WBC 12.3 H RBC 2.82 L Hgb 7.8 L Hct 23.7 L MCV MCH MCHC RDW 16.7 H Plt Count Lymph % (Auto) [place] % (Auto) 9.8 H Lymph # [place] # 1.2 H Baso # Seg Neutrophils % Seg Neuts % (Manual) Lymphocytes % (Manual) Monocytes % (Manual) Eosinophils % (Manual) Basophils % (Manual) Nucleated RBC % Seg Neutrophils # 8.4 H Seg Neutrophils # Man Lymphocytes # (Manual) Monocytes # (Manual) Eosinophils # (Manual) Basophils # (Manual) PT INR Fibrinogen dRVVT Confirm Interp Factor V Activity POC ABG pH POC ABG pCO2 POC ABG pO2 ABG pO2 ABG HCO3 ABG Base Excess ABG Hemoglobin Oxyhemoglobin Sodium Potassium Chloride Carbon Dioxide BUN Creatinine Glucose POC Glucose 152 H 152 H Lactic Acid Calcium Ionized Calcium Phosphorus Magnesium Direct Bilirubin AST ALT Alkaline Phosphatase Lactate Dehydrogenase Troponin T C-Reactive Protein Total Protein Albumin Prealbumin Triglycerides Cholesterol LDL Cholesterol Direct HDL Cholesterol 25-OH Vitamin D Total PTH Intact Urine pH Urine WBC (Auto) Urine Creatinine Urine Total Protein Fluid Total Protein Vancomycin Trough Rheumatoid Factor Complement C4 Miscellaneous Test Crossmatch 12/01/16 12/01/16 12/02/16 17:40 23:41 05:00 WBC RBC Hgb Hct MCV MCH MCHC RDW Plt Count Lymph % (Auto) [place] % (Auto) Lymph # [place] # Baso # Seg Neutrophils % Seg Neuts % (Manual) Lymphocytes % (Manual) Monocytes % (Manual) Eosinophils % (Manual) Basophils % (Manual) Nucleated RBC % Seg Neutrophils # Seg Neutrophils # Man Lymphocytes # (Manual) Monocytes # (Manual) Eosinophils # (Manual) Basophils # (Manual) PT INR Fibrinogen dRVVT Confirm Interp Factor V Activity POC ABG pH POC ABG pCO2 POC ABG pO2 ABG pO2 ABG HCO3 ABG Base Excess ABG Hemoglobin Oxyhemoglobin Sodium Potassium Chloride Carbon Dioxide BUN 45 H Creatinine Glucose 115 H POC Glucose 140 H 144 H Lactic Acid Calcium Ionized Calcium Phosphorus Magnesium Direct Bilirubin AST ALT Alkaline Phosphatase Lactate Dehydrogenase Troponin T C-Reactive Protein Total Protein Albumin Prealbumin Triglycerides Cholesterol LDL Cholesterol Direct HDL Cholesterol 25-OH Vitamin D Total PTH Intact Urine pH Urine WBC (Auto) Urine Creatinine Urine Total Protein Fluid Total Protein Vancomycin Trough Rheumatoid Factor Complement C4 Miscellaneous Test Crossmatch 12/02/16 12/02/16 12/02/16 05:31 11:20 17:38 WBC RBC Hgb Hct MCV MCH MCHC RDW Plt Count Lymph % (Auto) [place] % (Auto) Lymph # [place] # Baso # Seg Neutrophils % Seg Neuts % (Manual) Lymphocytes % (Manual) Monocytes % (Manual) Eosinophils % (Manual) Basophils % (Manual) Nucleated RBC % Seg Neutrophils # Seg Neutrophils # Man Lymphocytes # (Manual) Monocytes # (Manual) Eosinophils # (Manual) Basophils # (Manual) PT INR Fibrinogen dRVVT Confirm Interp Factor V Activity POC ABG pH POC ABG pCO2 POC ABG pO2 ABG pO2 ABG HCO3 ABG Base Excess ABG Hemoglobin Oxyhemoglobin Sodium Potassium Chloride Carbon Dioxide BUN Creatinine Glucose POC Glucose 136 H 177 H 139 H Lactic Acid Calcium Ionized Calcium Phosphorus Magnesium Direct Bilirubin AST ALT Alkaline Phosphatase Lactate Dehydrogenase Troponin T C-Reactive Protein Total Protein Albumin Prealbumin Triglycerides Cholesterol LDL Cholesterol Direct HDL Cholesterol 25-OH Vitamin D Total PTH Intact Urine pH Urine WBC (Auto) Urine Creatinine Urine Total Protein Fluid Total Protein Vancomycin Trough Rheumatoid Factor Complement C4 Miscellaneous Test Crossmatch 12/02/16 12/03/16 12/03/16 23:43 04:00 04:00 WBC 20.4 H RBC 2.74 L Hgb 7.4 L Hct 23.6 L MCV MCH 27 L MCHC RDW 17.1 H Plt Count Lymph % (Auto) [place] % (Auto) Lymph # [place] # Baso # Seg Neutrophils % Seg Neuts % (Manual) 31.0 L Lymphocytes % (Manual) Monocytes % (Manual) Eosinophils % (Manual) Basophils % (Manual) Nucleated RBC % Seg Neutrophils # Seg Neutrophils # Man Lymphocytes # (Manual) Monocytes # (Manual) Eosinophils # (Manual) Basophils # (Manual) PT INR Fibrinogen dRVVT Confirm Interp Factor V Activity POC ABG pH POC ABG pCO2 POC ABG pO2 ABG pO2 ABG HCO3 ABG Base Excess ABG Hemoglobin Oxyhemoglobin Sodium Potassium Chloride Carbon Dioxide BUN 61 H Creatinine 1.6 H Glucose 119 H POC Glucose 158 H Lactic Acid Calcium Ionized Calcium Phosphorus Magnesium Direct Bilirubin AST ALT Alkaline Phosphatase Lactate Dehydrogenase Troponin T C-Reactive Protein Total Protein Albumin Prealbumin Triglycerides Cholesterol LDL Cholesterol Direct HDL Cholesterol 25-OH Vitamin D Total PTH Intact Urine pH Urine WBC (Auto) Urine Creatinine Urine Total Protein Fluid Total Protein Vancomycin Trough Rheumatoid Factor Complement C4 Miscellaneous Test Crossmatch 12/03/16 12/03/16 12/03/16 05:02 12:11 18:16 WBC RBC Hgb Hct MCV MCH MCHC RDW Plt Count Lymph % (Auto) [place] % (Auto) Lymph # [place] # Baso # Seg Neutrophils % Seg Neuts % (Manual) Lymphocytes % (Manual) Monocytes % (Manual) Eosinophils % (Manual) Basophils % (Manual) Nucleated RBC % Seg Neutrophils # Seg Neutrophils # Man Lymphocytes # (Manual) Monocytes # (Manual) Eosinophils # (Manual) Basophils # (Manual) PT INR Fibrinogen dRVVT Confirm Interp Factor V Activity POC ABG pH POC ABG pCO2 POC ABG pO2 ABG pO2 ABG HCO3 ABG Base Excess ABG Hemoglobin Oxyhemoglobin Sodium Potassium Chloride Carbon Dioxide BUN Creatinine Glucose POC Glucose 146 H 157 H 124 H Lactic Acid Calcium Ionized Calcium Phosphorus Magnesium Direct Bilirubin AST ALT Alkaline Phosphatase Lactate Dehydrogenase Troponin T C-Reactive Protein Total Protein Albumin Prealbumin Triglycerides Cholesterol LDL Cholesterol Direct HDL Cholesterol 25-OH Vitamin D Total PTH Intact Urine pH Urine WBC (Auto) Urine Creatinine Urine Total Protein Fluid Total Protein Vancomycin Trough Rheumatoid Factor Complement C4 Miscellaneous Test Crossmatch 12/03/16 12/04/16 12/04/16 23:41 04:00 04:45 WBC RBC Hgb Hct MCV MCH MCHC RDW Plt Count Lymph % (Auto) [place] % (Auto) Lymph # [place] # Baso # Seg Neutrophils % Seg Neuts % (Manual) Lymphocytes % (Manual) Monocytes % (Manual) Eosinophils % (Manual) Basophils % (Manual) Nucleated RBC % Seg Neutrophils # Seg Neutrophils # Man Lymphocytes # (Manual) Monocytes # (Manual) Eosinophils # (Manual) Basophils # (Manual) PT INR Fibrinogen dRVVT Confirm Interp Factor V Activity POC ABG pH POC ABG pCO2 POC ABG pO2 ABG pO2 ABG HCO3 ABG Base Excess ABG Hemoglobin Oxyhemoglobin Sodium Potassium Chloride Carbon Dioxide BUN 76 H Creatinine 1.6 H Glucose POC Glucose 130 H 136 H Lactic Acid Calcium Ionized Calcium Phosphorus Magnesium Direct Bilirubin AST ALT Alkaline Phosphatase 155 H Lactate Dehydrogenase Troponin T C-Reactive Protein Total Protein 5.5 L Albumin 1.5 L Prealbumin Triglycerides Cholesterol LDL Cholesterol Direct HDL Cholesterol 25-OH Vitamin D Total PTH Intact Urine pH Urine WBC (Auto) Urine Creatinine Urine Total Protein Fluid Total Protein Vancomycin Trough Rheumatoid Factor Complement C4 Miscellaneous Test Crossmatch 12/04/16 12/04/16 12/05/16 12:08 17:23 00:10 WBC RBC Hgb Hct MCV MCH MCHC RDW Plt Count Lymph % (Auto) [place] % (Auto) Lymph # [place] # Baso # Seg Neutrophils % Seg Neuts % (Manual) Lymphocytes % (Manual) Monocytes % (Manual) Eosinophils % (Manual) Basophils % (Manual) Nucleated RBC % Seg Neutrophils # Seg Neutrophils # Man Lymphocytes # (Manual) Monocytes # (Manual) Eosinophils # (Manual) Basophils # (Manual) PT INR Fibrinogen dRVVT Confirm Interp Factor V Activity POC ABG pH POC ABG pCO2 POC ABG pO2 ABG pO2 ABG HCO3 ABG Base Excess ABG Hemoglobin Oxyhemoglobin Sodium Potassium Chloride Carbon Dioxide BUN Creatinine Glucose POC Glucose 114 H 129 H 124 H Lactic Acid Calcium Ionized Calcium Phosphorus Magnesium Direct Bilirubin AST ALT Alkaline Phosphatase Lactate Dehydrogenase Troponin T C-Reactive Protein Total Protein Albumin Prealbumin Triglycerides Cholesterol LDL Cholesterol Direct HDL Cholesterol 25-OH Vitamin D Total PTH Intact Urine pH Urine WBC (Auto) Urine Creatinine Urine Total Protein Fluid Total Protein Vancomycin Trough Rheumatoid Factor Complement C4 Miscellaneous Test Crossmatch 12/05/16 12/05/16 12/05/16 05:00 05:00 05:18 WBC RBC Hgb Hct MCV MCH MCHC RDW Plt Count Lymph % (Auto) [place] % (Auto) Lymph # [place] # Baso # Seg Neutrophils % Seg Neuts % (Manual) Lymphocytes % (Manual) Monocytes % (Manual) Eosinophils % (Manual) Basophils % (Manual) Nucleated RBC % Seg Neutrophils # Seg Neutrophils # Man Lymphocytes # (Manual) Monocytes # (Manual) Eosinophils # (Manual) Basophils # (Manual) PT INR Fibrinogen dRVVT Confirm Interp Factor V Activity POC ABG pH POC ABG pCO2 POC ABG pO2 ABG pO2 ABG HCO3 ABG Base Excess ABG Hemoglobin Oxyhemoglobin Sodium Potassium Chloride Carbon Dioxide 21 L BUN 85 H Creatinine 1.9 H Glucose 131 H POC Glucose 154 H Lactic Acid Calcium Ionized Calcium Phosphorus Magnesium Direct Bilirubin AST ALT Alkaline Phosphatase Lactate Dehydrogenase Troponin T C-Reactive Protein 19.30 H Total Protein Albumin Prealbumin Triglycerides Cholesterol LDL Cholesterol Direct HDL Cholesterol 25-OH Vitamin D Total PTH Intact Urine pH Urine WBC (Auto) Urine Creatinine Urine Total Protein Fluid Total Protein Vancomycin Trough Rheumatoid Factor Complement C4 Miscellaneous Test Crossmatch 12/05/16 12/05/16 12/05/16 11:43 17:46 23:25 WBC RBC Hgb Hct MCV MCH MCHC RDW Plt Count Lymph % (Auto) [place] % (Auto) Lymph # [place] # Baso # Seg Neutrophils % Seg Neuts % (Manual) Lymphocytes % (Manual) Monocytes % (Manual) Eosinophils % (Manual) Basophils % (Manual) Nucleated RBC % Seg Neutrophils # Seg Neutrophils # Man Lymphocytes # (Manual) Monocytes # (Manual) Eosinophils # (Manual) Basophils # (Manual) PT INR Fibrinogen dRVVT Confirm Interp Factor V Activity POC ABG pH POC ABG pCO2 POC ABG pO2 ABG pO2 ABG HCO3 ABG Base Excess ABG Hemoglobin Oxyhemoglobin Sodium Potassium Chloride Carbon Dioxide BUN Creatinine Glucose POC Glucose 117 H 113 H 111 H Lactic Acid Calcium Ionized Calcium Phosphorus Magnesium Direct Bilirubin AST ALT Alkaline Phosphatase Lactate Dehydrogenase Troponin T C-Reactive Protein Total Protein Albumin Prealbumin Triglycerides Cholesterol LDL Cholesterol Direct HDL Cholesterol 25-OH Vitamin D Total PTH Intact Urine pH Urine WBC (Auto) Urine Creatinine Urine Total Protein Fluid Total Protein Vancomycin Trough Rheumatoid Factor Complement C4 Miscellaneous Test Crossmatch 12/05/16 12/06/16 12/06/16 Unknown 04:58 06:00 WBC RBC Hgb Hct MCV MCH MCHC RDW Plt Count Lymph % (Auto) [place] % (Auto) Lymph # [place] # Baso # Seg Neutrophils % Seg Neuts % (Manual) Lymphocytes % (Manual) Monocytes % (Manual) Eosinophils % (Manual) Basophils % (Manual) Nucleated RBC % Seg Neutrophils # Seg Neutrophils # Man Lymphocytes # (Manual) Monocytes # (Manual) Eosinophils # (Manual) Basophils # (Manual) PT INR Fibrinogen dRVVT Confirm Interp Factor V Activity POC ABG pH POC ABG pCO2 POC ABG pO2 ABG pO2 75.2 L ABG HCO3 ABG Base Excess -3.4 L ABG Hemoglobin 7.4 L Oxyhemoglobin 94.5 L Sodium Potassium Chloride Carbon Dioxide 20 L BUN 99 H Creatinine 2.1 H Glucose 126 H POC Glucose 145 H Lactic Acid Calcium Ionized Calcium Phosphorus 4.80 H Magnesium Direct Bilirubin AST ALT Alkaline Phosphatase Lactate Dehydrogenase Troponin T C-Reactive Protein Total Protein Albumin Prealbumin Triglycerides Cholesterol LDL Cholesterol Direct HDL Cholesterol 25-OH Vitamin D Total PTH Intact Urine pH Urine WBC (Auto) Urine Creatinine Urine Total Protein Fluid Total Protein Vancomycin Trough Rheumatoid Factor Complement C4 Miscellaneous Test Crossmatch 12/06/16 12/06/16 12/06/16 06:46 11:54 17:55 WBC RBC Hgb 8.3 L Hct 26.4 L MCV MCH MCHC RDW Plt Count Lymph % (Auto) [place] % (Auto) Lymph # [place] # Baso # Seg Neutrophils % Seg Neuts % (Manual) Lymphocytes % (Manual) Monocytes % (Manual) Eosinophils % (Manual) Basophils % (Manual) Nucleated RBC % Seg Neutrophils # Seg Neutrophils # Man Lymphocytes # (Manual) Monocytes # (Manual) Eosinophils # (Manual) Basophils # (Manual) PT INR Fibrinogen dRVVT Confirm Interp Factor V Activity POC ABG pH POC ABG pCO2 POC ABG pO2 ABG pO2 ABG HCO3 ABG Base Excess ABG Hemoglobin Oxyhemoglobin Sodium Potassium Chloride Carbon Dioxide BUN Creatinine Glucose POC Glucose 126 H 157 H Lactic Acid Calcium Ionized Calcium Phosphorus Magnesium Direct Bilirubin AST ALT Alkaline Phosphatase Lactate Dehydrogenase Troponin T C-Reactive Protein Total Protein Albumin Prealbumin Triglycerides Cholesterol LDL Cholesterol Direct HDL Cholesterol 25-OH Vitamin D Total PTH Intact Urine pH Urine WBC (Auto) Urine Creatinine Urine Total Protein Fluid Total Protein Vancomycin Trough Rheumatoid Factor Complement C4 Miscellaneous Test Crossmatch 12/06/16 12/07/16 12/07/16 23:59 05:34 06:30 WBC RBC Hgb Hct MCV MCH MCHC RDW Plt Count Lymph % (Auto) [place] % (Auto) Lymph # [place] # Baso # Seg Neutrophils % Seg Neuts % (Manual) Lymphocytes % (Manual) Monocytes % (Manual) Eosinophils % (Manual) Basophils % (Manual) Nucleated RBC % Seg Neutrophils # Seg Neutrophils # Man Lymphocytes # (Manual) Monocytes # (Manual) Eosinophils # (Manual) Basophils # (Manual) PT INR Fibrinogen dRVVT Confirm Interp Factor V Activity POC ABG pH POC ABG pCO2 POC ABG pO2 ABG pO2 ABG HCO3 ABG Base Excess ABG Hemoglobin Oxyhemoglobin Sodium Potassium Chloride Carbon Dioxide BUN 67 H Creatinine 1.4 H Glucose 126 H POC Glucose 129 H 129 H Lactic Acid Calcium Ionized Calcium Phosphorus Magnesium Direct Bilirubin AST ALT Alkaline Phosphatase Lactate Dehydrogenase Troponin T C-Reactive Protein Total Protein Albumin Prealbumin Triglycerides Cholesterol LDL Cholesterol Direct HDL Cholesterol 25-OH Vitamin D Total PTH Intact Urine pH Urine WBC (Auto) Urine Creatinine Urine Total Protein Fluid Total Protein Vancomycin Trough Rheumatoid Factor Complement C4 Miscellaneous Test Crossmatch 12/07/16 12/07/16 12/07/16 06:30 08:00 09:45 WBC 18.8 H RBC 2.52 L Hgb 6.9 L 6.8 L Hct 21.2 L 21.1 L MCV MCH 27 L MCHC RDW 18.0 H Plt Count Lymph % (Auto) [place] % (Auto) 9.9 H Lymph # [place] # 1.9 H Baso # Seg Neutrophils % 71.8 H Seg Neuts % (Manual) Lymphocytes % (Manual) Monocytes % (Manual) Eosinophils % (Manual) Basophils % (Manual) Nucleated RBC % Seg Neutrophils # 13.5 H Seg Neutrophils # Man Lymphocytes # (Manual) Monocytes # (Manual) Eosinophils # (Manual) Basophils # (Manual) PT INR Fibrinogen dRVVT Confirm Interp Factor V Activity POC ABG pH POC ABG pCO2 POC ABG pO2 ABG pO2 ABG HCO3 ABG Base Excess ABG Hemoglobin Oxyhemoglobin Sodium Potassium Chloride Carbon Dioxide BUN Creatinine Glucose POC Glucose Lactic Acid Calcium Ionized Calcium Phosphorus Magnesium Direct Bilirubin AST ALT Alkaline Phosphatase Lactate Dehydrogenase Troponin T C-Reactive Protein Total Protein Albumin Prealbumin Triglycerides Cholesterol LDL Cholesterol Direct HDL Cholesterol 25-OH Vitamin D Total PTH Intact Urine pH Urine WBC (Auto) Urine Creatinine Urine Total Protein Fluid Total Protein Vancomycin Trough Rheumatoid Factor Complement C4 Miscellaneous Test Crossmatch See Detail 12/07/16 12/07/16 12/07/16 11:44 18:19 23:59 WBC RBC Hgb Hct MCV MCH MCHC RDW Plt Count Lymph % (Auto) [place] % (Auto) Lymph # [place] # Baso # Seg Neutrophils % Seg Neuts % (Manual) Lymphocytes % (Manual) Monocytes % (Manual) Eosinophils % (Manual) Basophils % (Manual) Nucleated RBC % Seg Neutrophils # Seg Neutrophils # Man Lymphocytes # (Manual) Monocytes # (Manual) Eosinophils # (Manual) Basophils # (Manual) PT INR Fibrinogen dRVVT Confirm Interp Factor V Activity POC ABG pH POC ABG pCO2 POC ABG pO2 ABG pO2 ABG HCO3 ABG Base Excess ABG Hemoglobin Oxyhemoglobin Sodium Potassium Chloride Carbon Dioxide BUN Creatinine Glucose POC Glucose 137 H 138 H 133 H Lactic Acid Calcium Ionized Calcium Phosphorus Magnesium Direct Bilirubin AST ALT Alkaline Phosphatase Lactate Dehydrogenase Troponin T C-Reactive Protein Total Protein Albumin Prealbumin Triglycerides Cholesterol LDL Cholesterol Direct HDL Cholesterol 25-OH Vitamin D Total PTH Intact Urine pH Urine WBC (Auto) Urine Creatinine Urine Total Protein Fluid Total Protein Vancomycin Trough Rheumatoid Factor Complement C4 Miscellaneous Test Crossmatch 12/08/16 12/08/16 12/08/16 05:25 05:30 05:30 WBC 23.8 H RBC 2.88 L Hgb 8.1 L Hct 24.3 L MCV MCH MCHC RDW 16.7 H Plt Count Lymph % (Auto) [place] % (Auto) Lymph # [place] # Baso # Seg Neutrophils % Seg Neuts % (Manual) 76.0 H Lymphocytes % (Manual) 9.0 L Monocytes % (Manual) 9.0 H Eosinophils % (Manual) Basophils % (Manual) Nucleated RBC % Seg Neutrophils # Seg Neutrophils # Man 18.1 H Lymphocytes # (Manual) Monocytes # (Manual) 2.1 H Eosinophils # (Manual) Basophils # (Manual) PT INR Fibrinogen dRVVT Confirm Interp Factor V Activity POC ABG pH POC ABG pCO2 POC ABG pO2 ABG pO2 ABG HCO3 ABG Base Excess ABG Hemoglobin Oxyhemoglobin Sodium Potassium Chloride Carbon Dioxide 21 L BUN 76 H Creatinine 1.6 H Glucose 133 H POC Glucose 177 H Lactic Acid Calcium Ionized Calcium Phosphorus Magnesium Direct Bilirubin AST ALT Alkaline Phosphatase Lactate Dehydrogenase Troponin T C-Reactive Protein Total Protein Albumin Prealbumin Triglycerides Cholesterol LDL Cholesterol Direct HDL Cholesterol 25-OH Vitamin D Total PTH Intact Urine pH Urine WBC (Auto) Urine Creatinine Urine Total Protein Fluid Total Protein Vancomycin Trough Rheumatoid Factor Complement C4 Miscellaneous Test Crossmatch 12/08/16 12/08/16 12/09/16 11:45 18:00 00:00 WBC RBC Hgb Hct MCV MCH MCHC RDW Plt Count Lymph % (Auto) [place] % (Auto) Lymph # [place] # Baso # Seg Neutrophils % Seg Neuts % (Manual) Lymphocytes % (Manual) Monocytes % (Manual) Eosinophils % (Manual) Basophils % (Manual) Nucleated RBC % Seg Neutrophils # Seg Neutrophils # Man Lymphocytes # (Manual) Monocytes # (Manual) Eosinophils # (Manual) Basophils # (Manual) PT INR Fibrinogen dRVVT Confirm Interp Factor V Activity POC ABG pH POC ABG pCO2 POC ABG pO2 ABG pO2 ABG HCO3 ABG Base Excess ABG Hemoglobin Oxyhemoglobin Sodium Potassium Chloride Carbon Dioxide BUN Creatinine Glucose POC Glucose 163 H 123 H 137 H Lactic Acid Calcium Ionized Calcium Phosphorus Magnesium Direct Bilirubin AST ALT Alkaline Phosphatase Lactate Dehydrogenase Troponin T C-Reactive Protein Total Protein Albumin Prealbumin Triglycerides Cholesterol LDL Cholesterol Direct HDL Cholesterol 25-OH Vitamin D Total PTH Intact Urine pH Urine WBC (Auto) Urine Creatinine Urine Total Protein Fluid Total Protein Vancomycin Trough Rheumatoid Factor Complement C4 Miscellaneous Test Crossmatch 12/09/16 12/09/16 12/09/16 05:34 06:00 06:00 WBC 15.5 H RBC 2.87 L Hgb 8.0 L Hct 24.2 L MCV MCH MCHC RDW 17.2 H Plt Count Lymph % (Auto) [place] % (Auto) 11.6 H Lymph # [place] # 1.8 H Baso # Seg Neutrophils % 70.8 H Seg Neuts % (Manual) Lymphocytes % (Manual) Monocytes % (Manual) Eosinophils % (Manual) Basophils % (Manual) Nucleated RBC % Seg Neutrophils # 11.0 H Seg Neutrophils # Man Lymphocytes # (Manual) Monocytes # (Manual) Eosinophils # (Manual) Basophils # (Manual) PT INR Fibrinogen dRVVT Confirm Interp Factor V Activity POC ABG pH POC ABG pCO2 POC ABG pO2 ABG pO2 ABG HCO3 ABG Base Excess ABG Hemoglobin Oxyhemoglobin Sodium Potassium Chloride Carbon Dioxide BUN 51 H Creatinine Glucose 117 H POC Glucose 136 H Lactic Acid Calcium Ionized Calcium Phosphorus Magnesium Direct Bilirubin AST ALT Alkaline Phosphatase Lactate Dehydrogenase Troponin T C-Reactive Protein Total Protein Albumin Prealbumin Triglycerides Cholesterol LDL Cholesterol Direct HDL Cholesterol 25-OH Vitamin D Total PTH Intact Urine pH Urine WBC (Auto) Urine Creatinine Urine Total Protein Fluid Total Protein Vancomycin Trough Rheumatoid Factor Complement C4 Miscellaneous Test Crossmatch 12/09/16 12/09/16 12/09/16 12:29 17:52 23:10 WBC RBC Hgb Hct MCV MCH MCHC RDW Plt Count Lymph % (Auto) [place] % (Auto) Lymph # [place] # Baso # Seg Neutrophils % Seg Neuts % (Manual) Lymphocytes % (Manual) Monocytes % (Manual) Eosinophils % (Manual) Basophils % (Manual) Nucleated RBC % Seg Neutrophils # Seg Neutrophils # Man Lymphocytes # (Manual) Monocytes # (Manual) Eosinophils # (Manual) Basophils # (Manual) PT INR Fibrinogen dRVVT Confirm Interp Factor V Activity POC ABG pH POC ABG pCO2 POC ABG pO2 ABG pO2 ABG HCO3 ABG Base Excess ABG Hemoglobin Oxyhemoglobin Sodium Potassium Chloride Carbon Dioxide BUN Creatinine Glucose POC Glucose 139 H 140 H 129 H Lactic Acid Calcium Ionized Calcium Phosphorus Magnesium Direct Bilirubin AST ALT Alkaline Phosphatase Lactate Dehydrogenase Troponin T C-Reactive Protein Total Protein Albumin Prealbumin Triglycerides Cholesterol LDL Cholesterol Direct HDL Cholesterol 25-OH Vitamin D Total PTH Intact Urine pH Urine WBC (Auto) Urine Creatinine Urine Total Protein Fluid Total Protein Vancomycin Trough Rheumatoid Factor Complement C4 Miscellaneous Test Crossmatch 12/10/16 12/10/16 12/10/16 05:00 05:00 06:54 WBC 15.7 H RBC 2.87 L Hgb 8.2 L Hct 24.4 L MCV MCH MCHC RDW 17.2 H Plt Count Lymph % (Auto) [place] % (Auto) 8.3 H Lymph # [place] # 1.3 H Baso # Seg Neutrophils % 72.8 H Seg Neuts % (Manual) Lymphocytes % (Manual) Monocytes % (Manual) Eosinophils % (Manual) Basophils % (Manual) Nucleated RBC % Seg Neutrophils # 11.4 H Seg Neutrophils # Man Lymphocytes # (Manual) Monocytes # (Manual) Eosinophils # (Manual) Basophils # (Manual) PT INR Fibrinogen dRVVT Confirm Interp Factor V Activity POC ABG pH POC ABG pCO2 POC ABG pO2 ABG pO2 ABG HCO3 ABG Base Excess ABG Hemoglobin Oxyhemoglobin Sodium Potassium Chloride Carbon Dioxide BUN 64 H Creatinine 1.4 H Glucose 134 H POC Glucose 154 H Lactic Acid Calcium Ionized Calcium Phosphorus Magnesium Direct Bilirubin AST ALT Alkaline Phosphatase Lactate Dehydrogenase Troponin T C-Reactive Protein Total Protein Albumin Prealbumin Triglycerides Cholesterol LDL Cholesterol Direct HDL Cholesterol 25-OH Vitamin D Total PTH Intact Urine pH Urine WBC (Auto) Urine Creatinine Urine Total Protein Fluid Total Protein Vancomycin Trough Rheumatoid Factor Complement C4 Miscellaneous Test Crossmatch 12/10/16 12/10/16 12/10/16 11:58 17:29 23:52 WBC RBC Hgb Hct MCV MCH MCHC RDW Plt Count Lymph % (Auto) [place] % (Auto) Lymph # [place] # Baso # Seg Neutrophils % Seg Neuts % (Manual) Lymphocytes % (Manual) Monocytes % (Manual) Eosinophils % (Manual) Basophils % (Manual) Nucleated RBC % Seg Neutrophils # Seg Neutrophils # Man Lymphocytes # (Manual) Monocytes # (Manual) Eosinophils # (Manual) Basophils # (Manual) PT INR Fibrinogen dRVVT Confirm Interp Factor V Activity POC ABG pH POC ABG pCO2 POC ABG pO2 ABG pO2 ABG HCO3 ABG Base Excess ABG Hemoglobin Oxyhemoglobin Sodium Potassium Chloride Carbon Dioxide BUN Creatinine Glucose POC Glucose 144 H 163 H 125 H Lactic Acid Calcium Ionized Calcium Phosphorus Magnesium Direct Bilirubin AST ALT Alkaline Phosphatase Lactate Dehydrogenase Troponin T C-Reactive Protein Total Protein Albumin Prealbumin Triglycerides Cholesterol LDL Cholesterol Direct HDL Cholesterol 25-OH Vitamin D Total PTH Intact Urine pH Urine WBC (Auto) Urine Creatinine Urine Total Protein Fluid Total Protein Vancomycin Trough Rheumatoid Factor Complement C4 Miscellaneous Test Crossmatch 12/11/16 12/11/16 12/11/16 05:38 06:30 06:30 WBC 14.4 H RBC 2.76 L Hgb 7.7 L Hct 23.4 L MCV MCH MCHC RDW 17.2 H Plt Count Lymph % (Auto) [place] % (Auto) 8.8 H Lymph # [place] # 1.3 H Baso # Seg Neutrophils % 72.5 H Seg Neuts % (Manual) Lymphocytes % (Manual) Monocytes % (Manual) Eosinophils % (Manual) Basophils % (Manual) Nucleated RBC % Seg Neutrophils # 10.5 H Seg Neutrophils # Man Lymphocytes # (Manual) Monocytes # (Manual) Eosinophils # (Manual) Basophils # (Manual) PT INR Fibrinogen dRVVT Confirm Interp Factor V Activity POC ABG pH POC ABG pCO2 POC ABG pO2 ABG pO2 ABG HCO3 ABG Base Excess ABG Hemoglobin Oxyhemoglobin Sodium Potassium Chloride Carbon Dioxide BUN 43 H Creatinine Glucose 124 H POC Glucose 141 H Lactic Acid Calcium 8.3 L Ionized Calcium Phosphorus Magnesium 1.60 L Direct Bilirubin AST ALT Alkaline Phosphatase Lactate Dehydrogenase Troponin T C-Reactive Protein Total Protein Albumin Prealbumin Triglycerides Cholesterol LDL Cholesterol Direct HDL Cholesterol 25-OH Vitamin D Total PTH Intact Urine pH Urine WBC (Auto) Urine Creatinine Urine Total Protein Fluid Total Protein Vancomycin Trough Rheumatoid Factor Complement C4 Miscellaneous Test Crossmatch 12/11/16 12/11/16 12/11/16 11:15 17:59 23:48 WBC RBC Hgb Hct MCV MCH MCHC RDW Plt Count Lymph % (Auto) [place] % (Auto) Lymph # [place] # Baso # Seg Neutrophils % Seg Neuts % (Manual) Lymphocytes % (Manual) Monocytes % (Manual) Eosinophils % (Manual) Basophils % (Manual) Nucleated RBC % Seg Neutrophils # Seg Neutrophils # Man Lymphocytes # (Manual) Monocytes # (Manual) Eosinophils # (Manual) Basophils # (Manual) PT INR Fibrinogen dRVVT Confirm Interp Factor V Activity POC ABG pH POC ABG pCO2 POC ABG pO2 ABG pO2 ABG HCO3 ABG Base Excess ABG Hemoglobin Oxyhemoglobin Sodium Potassium Chloride Carbon Dioxide BUN Creatinine Glucose POC Glucose 188 H 106 H 119 H Lactic Acid Calcium Ionized Calcium Phosphorus Magnesium Direct Bilirubin AST ALT Alkaline Phosphatase Lactate Dehydrogenase Troponin T C-Reactive Protein Total Protein Albumin Prealbumin Triglycerides Cholesterol LDL Cholesterol Direct HDL Cholesterol 25-OH Vitamin D Total PTH Intact Urine pH Urine WBC (Auto) Urine Creatinine Urine Total Protein Fluid Total Protein Vancomycin Trough Rheumatoid Factor Complement C4 Miscellaneous Test Crossmatch 12/12/16 12/12/16 12/12/16 05:00 06:01 12:20 WBC 16.7 H RBC 2.87 L Hgb 8.0 L Hct 24.2 L MCV MCH MCHC RDW 17.6 H Plt Count Lymph % (Auto) [place] % (Auto) Lymph # [place] # 1.2 H Baso # Seg Neutrophils % 75.3 H Seg Neuts % (Manual) Lymphocytes % (Manual) Monocytes % (Manual) Eosinophils % (Manual) Basophils % (Manual) Nucleated RBC % Seg Neutrophils # 12.6 H Seg Neutrophils # Man Lymphocytes # (Manual) Monocytes # (Manual) Eosinophils # (Manual) Basophils # (Manual) PT INR Fibrinogen dRVVT Confirm Interp Factor V Activity POC ABG pH POC ABG pCO2 POC ABG pO2 ABG pO2 ABG HCO3 ABG Base Excess ABG Hemoglobin Oxyhemoglobin Sodium Potassium Chloride Carbon Dioxide BUN Creatinine Glucose POC Glucose 134 H 149 H Lactic Acid Calcium Ionized Calcium Phosphorus Magnesium Direct Bilirubin AST ALT Alkaline Phosphatase Lactate Dehydrogenase Troponin T C-Reactive Protein Total Protein Albumin Prealbumin Triglycerides Cholesterol LDL Cholesterol Direct HDL Cholesterol 25-OH Vitamin D Total PTH Intact Urine pH Urine WBC (Auto) Urine Creatinine Urine Total Protein Fluid Total Protein Vancomycin Trough Rheumatoid Factor Complement C4 Miscellaneous Test Crossmatch 12/12/16 12/12/16 12/12/16 17:38 23:01 Unknown WBC RBC Hgb Hct MCV MCH MCHC RDW Plt Count Lymph % (Auto) [place] % (Auto) Lymph # [place] # Baso # Seg Neutrophils % Seg Neuts % (Manual) Lymphocytes % (Manual) Monocytes % (Manual) Eosinophils % (Manual) Basophils % (Manual) Nucleated RBC % Seg Neutrophils # Seg Neutrophils # Man Lymphocytes # (Manual) Monocytes # (Manual) Eosinophils # (Manual) Basophils # (Manual) PT INR Fibrinogen dRVVT Confirm Interp Factor V Activity POC ABG pH POC ABG pCO2 POC ABG pO2 ABG pO2 ABG HCO3 ABG Base Excess ABG Hemoglobin Oxyhemoglobin Sodium Potassium Chloride Carbon Dioxide BUN 60 H Creatinine 1.3 H Glucose 126 H POC Glucose 127 H 144 H Lactic Acid Calcium Ionized Calcium Phosphorus Magnesium Direct Bilirubin AST ALT Alkaline Phosphatase Lactate Dehydrogenase Troponin T C-Reactive Protein Total Protein Albumin Prealbumin Triglycerides Cholesterol LDL Cholesterol Direct HDL Cholesterol 25-OH Vitamin D Total PTH Intact Urine pH Urine WBC (Auto) Urine Creatinine Urine Total Protein Fluid Total Protein Vancomycin Trough Rheumatoid Factor Complement C4 Miscellaneous Test Crossmatch 12/13/16 12/13/16 12/13/16 04:00 04:00 05:19 WBC 18.7 H RBC 2.89 L Hgb 8.3 L Hct 24.6 L MCV MCH MCHC RDW 17.5 H Plt Count Lymph % (Auto) [place] % (Auto) Lymph # [place] # 1.3 H Baso # Seg Neutrophils % 71.5 H Seg Neuts % (Manual) Lymphocytes % (Manual) Monocytes % (Manual) Eosinophils % (Manual) Basophils % (Manual) Nucleated RBC % Seg Neutrophils # 13.4 H Seg Neutrophils # Man Lymphocytes # (Manual) Monocytes # (Manual) Eosinophils # (Manual) Basophils # (Manual) PT INR Fibrinogen dRVVT Confirm Interp Factor V Activity POC ABG pH POC ABG pCO2 POC ABG pO2 ABG pO2 ABG HCO3 ABG Base Excess ABG Hemoglobin Oxyhemoglobin Sodium Potassium Chloride Carbon Dioxide BUN 73 H Creatinine 1.5 H Glucose 141 H POC Glucose 171 H Lactic Acid Calcium Ionized Calcium Phosphorus Magnesium Direct Bilirubin AST ALT Alkaline Phosphatase Lactate Dehydrogenase Troponin T C-Reactive Protein Total Protein Albumin Prealbumin Triglycerides Cholesterol LDL Cholesterol Direct HDL Cholesterol 25-OH Vitamin D Total PTH Intact Urine pH Urine WBC (Auto) Urine Creatinine Urine Total Protein Fluid Total Protein Vancomycin Trough Rheumatoid Factor Complement C4 Miscellaneous Test Crossmatch 12/13/16 12/13/16 12/14/16 12:28 16:48 00:01 WBC RBC Hgb Hct MCV MCH MCHC RDW Plt Count Lymph % (Auto) [place] % (Auto) Lymph # [place] # Baso # Seg Neutrophils % Seg Neuts % (Manual) Lymphocytes % (Manual) Monocytes % (Manual) Eosinophils % (Manual) Basophils % (Manual) Nucleated RBC % Seg Neutrophils # Seg Neutrophils # Man Lymphocytes # (Manual) Monocytes # (Manual) Eosinophils # (Manual) Basophils # (Manual) PT INR Fibrinogen dRVVT Confirm Interp Factor V Activity POC ABG pH POC ABG pCO2 POC ABG pO2 ABG pO2 ABG HCO3 ABG Base Excess ABG Hemoglobin Oxyhemoglobin Sodium Potassium Chloride Carbon Dioxide BUN Creatinine Glucose POC Glucose 206 H 173 H 139 H Lactic Acid Calcium Ionized Calcium Phosphorus Magnesium Direct Bilirubin AST ALT Alkaline Phosphatase Lactate Dehydrogenase Troponin T C-Reactive Protein Total Protein Albumin Prealbumin Triglycerides Cholesterol LDL Cholesterol Direct HDL Cholesterol 25-OH Vitamin D Total PTH Intact Urine pH Urine WBC (Auto) Urine Creatinine Urine Total Protein Fluid Total Protein Vancomycin Trough Rheumatoid Factor Complement C4 Miscellaneous Test Crossmatch 12/14/16 12/14/16 12/14/16 05:16 06:10 11:17 WBC RBC Hgb Hct MCV MCH MCHC RDW Plt Count Lymph % (Auto) [place] % (Auto) Lymph # [place] # Baso # Seg Neutrophils % Seg Neuts % (Manual) Lymphocytes % (Manual) Monocytes % (Manual) Eosinophils % (Manual) Basophils % (Manual) Nucleated RBC % Seg Neutrophils # Seg Neutrophils # Man Lymphocytes # (Manual) Monocytes # (Manual) Eosinophils # (Manual) Basophils # (Manual) PT INR Fibrinogen dRVVT Confirm Interp Factor V Activity POC ABG pH POC ABG pCO2 POC ABG pO2 ABG pO2 ABG HCO3 ABG Base Excess ABG Hemoglobin Oxyhemoglobin Sodium Potassium Chloride Carbon Dioxide BUN 57 H Creatinine 1.4 H Glucose 135 H POC Glucose 158 H 137 H Lactic Acid Calcium Ionized Calcium Phosphorus Magnesium Direct Bilirubin AST ALT Alkaline Phosphatase Lactate Dehydrogenase Troponin T C-Reactive Protein Total Protein Albumin Prealbumin Triglycerides Cholesterol LDL Cholesterol Direct HDL Cholesterol 25-OH Vitamin D Total PTH Intact Urine pH Urine WBC (Auto) Urine Creatinine Urine Total Protein Fluid Total Protein Vancomycin Trough Rheumatoid Factor Complement C4 Miscellaneous Test Crossmatch 12/14/16 12/14/16 12/15/16 17:52 23:27 04:00 WBC RBC Hgb Hct MCV MCH MCHC RDW Plt Count Lymph % (Auto) [place] % (Auto) Lymph # [place] # Baso # Seg Neutrophils % Seg Neuts % (Manual) Lymphocytes % (Manual) Monocytes % (Manual) Eosinophils % (Manual) Basophils % (Manual) Nucleated RBC % Seg Neutrophils # Seg Neutrophils # Man Lymphocytes # (Manual) Monocytes # (Manual) Eosinophils # (Manual) Basophils # (Manual) PT INR Fibrinogen dRVVT Confirm Interp Factor V Activity POC ABG pH POC ABG pCO2 POC ABG pO2 ABG pO2 ABG HCO3 ABG Base Excess ABG Hemoglobin Oxyhemoglobin Sodium Potassium Chloride 97.9 L Carbon Dioxide BUN 75 H Creatinine 1.6 H Glucose 122 H POC Glucose 149 H 163 H Lactic Acid Calcium Ionized Calcium Phosphorus 5.20 H Magnesium Direct Bilirubin AST ALT Alkaline Phosphatase Lactate Dehydrogenase Troponin T C-Reactive Protein Total Protein Albumin Prealbumin Triglycerides Cholesterol LDL Cholesterol Direct HDL Cholesterol 25-OH Vitamin D Total PTH Intact Urine pH Urine WBC (Auto) Urine Creatinine Urine Total Protein Fluid Total Protein Vancomycin Trough Rheumatoid Factor Complement C4 Miscellaneous Test Crossmatch 12/15/16 12/15/16 12/15/16 05:50 11:24 17:01 WBC RBC Hgb Hct MCV MCH MCHC RDW Plt Count Lymph % (Auto) [place] % (Auto) Lymph # [place] # Baso # Seg Neutrophils % Seg Neuts % (Manual) Lymphocytes % (Manual) Monocytes % (Manual) Eosinophils % (Manual) Basophils % (Manual) Nucleated RBC % Seg Neutrophils # Seg Neutrophils # Man Lymphocytes # (Manual) Monocytes # (Manual) Eosinophils # (Manual) Basophils # (Manual) PT INR Fibrinogen dRVVT Confirm Interp Factor V Activity POC ABG pH POC ABG pCO2 POC ABG pO2 ABG pO2 ABG HCO3 ABG Base Excess ABG Hemoglobin Oxyhemoglobin Sodium Potassium Chloride Carbon Dioxide BUN Creatinine Glucose POC Glucose 150 H 146 H 167 H Lactic Acid Calcium Ionized Calcium Phosphorus Magnesium Direct Bilirubin AST ALT Alkaline Phosphatase Lactate Dehydrogenase Troponin T C-Reactive Protein Total Protein Albumin Prealbumin Triglycerides Cholesterol LDL Cholesterol Direct HDL Cholesterol 25-OH Vitamin D Total PTH Intact Urine pH Urine WBC (Auto) Urine Creatinine Urine Total Protein Fluid Total Protein Vancomycin Trough Rheumatoid Factor Complement C4 Miscellaneous Test Crossmatch 12/15/16 12/16/16 12/16/16 23:34 05:25 11:24 WBC RBC Hgb Hct MCV MCH MCHC RDW Plt Count Lymph % (Auto) [place] % (Auto) Lymph # [place] # Baso # Seg Neutrophils % Seg Neuts % (Manual) Lymphocytes % (Manual) Monocytes % (Manual) Eosinophils % (Manual) Basophils % (Manual) Nucleated RBC % Seg Neutrophils # Seg Neutrophils # Man Lymphocytes # (Manual) Monocytes # (Manual) Eosinophils # (Manual) Basophils # (Manual) PT INR Fibrinogen dRVVT Confirm Interp Factor V Activity POC ABG pH POC ABG pCO2 POC ABG pO2 ABG pO2 ABG HCO3 ABG Base Excess ABG Hemoglobin Oxyhemoglobin Sodium Potassium Chloride Carbon Dioxide BUN Creatinine Glucose POC Glucose 127 H 139 H 165 H Lactic Acid Calcium Ionized Calcium Phosphorus Magnesium Direct Bilirubin AST ALT Alkaline Phosphatase Lactate Dehydrogenase Troponin T C-Reactive Protein Total Protein Albumin Prealbumin Triglycerides Cholesterol LDL Cholesterol Direct HDL Cholesterol 25-OH Vitamin D Total PTH Intact Urine pH Urine WBC (Auto) Urine Creatinine Urine Total Protein Fluid Total Protein Vancomycin Trough Rheumatoid Factor Complement C4 Miscellaneous Test Crossmatch 12/16/16 12/16/16 12/16/16 15:30 16:25 17:31 WBC 17.8 H RBC 2.38 L Hgb 6.4 L Hct 20.3 L MCV MCH 27 L MCHC RDW 17.4 H Plt Count Lymph % (Auto) [place] % (Auto) Lymph # [place] # Baso # Seg Neutrophils % Seg Neuts % (Manual) Lymphocytes % (Manual) Monocytes % (Manual) 10.0 H Eosinophils % (Manual) Basophils % (Manual) Nucleated RBC % Seg Neutrophils # Seg Neutrophils # Man 8.5 H Lymphocytes # (Manual) Monocytes # (Manual) 1.8 H Eosinophils # (Manual) Basophils # (Manual) PT INR Fibrinogen dRVVT Confirm Interp Factor V Activity POC ABG pH POC ABG pCO2 POC ABG pO2 ABG pO2 ABG HCO3 ABG Base Excess ABG Hemoglobin Oxyhemoglobin Sodium Potassium Chloride Carbon Dioxide BUN Creatinine Glucose POC Glucose 176 H Lactic Acid Calcium Ionized Calcium Phosphorus Magnesium Direct Bilirubin AST ALT Alkaline Phosphatase Lactate Dehydrogenase Troponin T C-Reactive Protein Total Protein Albumin Prealbumin Triglycerides Cholesterol LDL Cholesterol Direct HDL Cholesterol 25-OH Vitamin D Total PTH Intact Urine pH Urine WBC (Auto) Urine Creatinine Urine Total Protein Fluid Total Protein Vancomycin Trough Rheumatoid Factor Complement C4 Miscellaneous Test Crossmatch See Detail 12/17/16 12/17/16 12/17/16 00:14 04:00 05:00 WBC 20.0 H RBC 2.99 L Hgb 8.5 L Hct 25.7 L MCV MCH MCHC RDW 17.2 H Plt Count Lymph % (Auto) [place] % (Auto) Lymph # [place] # Baso # Seg Neutrophils % Seg Neuts % (Manual) Lymphocytes % (Manual) Monocytes % (Manual) Eosinophils % (Manual) Basophils % (Manual) Nucleated RBC % Seg Neutrophils # Seg Neutrophils # Man Lymphocytes # (Manual) Monocytes # (Manual) Eosinophils # (Manual) Basophils # (Manual) PT INR Fibrinogen dRVVT Confirm Interp Factor V Activity POC ABG pH POC ABG pCO2 POC ABG pO2 ABG pO2 ABG HCO3 ABG Base Excess ABG Hemoglobin Oxyhemoglobin Sodium Potassium Chloride 97.7 L Carbon Dioxide BUN 73 H Creatinine 1.7 H Glucose 136 H POC Glucose 148 H Lactic Acid Calcium Ionized Calcium Phosphorus 2.20 L Magnesium 2.70 H Direct Bilirubin AST ALT Alkaline Phosphatase Lactate Dehydrogenase Troponin T C-Reactive Protein Total Protein Albumin Prealbumin Triglycerides Cholesterol LDL Cholesterol Direct HDL Cholesterol 25-OH Vitamin D Total PTH Intact Urine pH Urine WBC (Auto) Urine Creatinine Urine Total Protein Fluid Total Protein Vancomycin Trough Rheumatoid Factor Complement C4 Miscellaneous Test Crossmatch 12/17/16 12/17/16 12/17/16 05:39 12:50 16:32 WBC RBC Hgb Hct MCV MCH MCHC RDW Plt Count Lymph % (Auto) [place] % (Auto) Lymph # [place] # Baso # Seg Neutrophils % Seg Neuts % (Manual) Lymphocytes % (Manual) Monocytes % (Manual) Eosinophils % (Manual) Basophils % (Manual) Nucleated RBC % Seg Neutrophils # Seg Neutrophils # Man Lymphocytes # (Manual) Monocytes # (Manual) Eosinophils # (Manual) Basophils # (Manual) PT INR Fibrinogen dRVVT Confirm Interp Factor V Activity POC ABG pH POC ABG pCO2 POC ABG pO2 ABG pO2 ABG HCO3 ABG Base Excess ABG Hemoglobin Oxyhemoglobin Sodium Potassium Chloride Carbon Dioxide BUN Creatinine Glucose POC Glucose 162 H 146 H 169 H Lactic Acid Calcium Ionized Calcium Phosphorus Magnesium Direct Bilirubin AST ALT Alkaline Phosphatase Lactate Dehydrogenase Troponin T C-Reactive Protein Total Protein Albumin Prealbumin Triglycerides Cholesterol LDL Cholesterol Direct HDL Cholesterol 25-OH Vitamin D Total PTH Intact Urine pH Urine WBC (Auto) Urine Creatinine Urine Total Protein Fluid Total Protein Vancomycin Trough Rheumatoid Factor Complement C4 Miscellaneous Test Crossmatch 12/17/16 12/18/16 12/18/16 23:57 05:00 05:32 WBC RBC Hgb Hct MCV MCH MCHC RDW Plt Count Lymph % (Auto) [place] % (Auto) Lymph # [place] # Baso # Seg Neutrophils % Seg Neuts % (Manual) Lymphocytes % (Manual) Monocytes % (Manual) Eosinophils % (Manual) Basophils % (Manual) Nucleated RBC % Seg Neutrophils # Seg Neutrophils # Man Lymphocytes # (Manual) Monocytes # (Manual) Eosinophils # (Manual) Basophils # (Manual) PT INR Fibrinogen dRVVT Confirm Interp Factor V Activity POC ABG pH POC ABG pCO2 POC ABG pO2 ABG pO2 ABG HCO3 ABG Base Excess ABG Hemoglobin Oxyhemoglobin Sodium Potassium Chloride 97.0 L Carbon Dioxide BUN 63 H Creatinine 1.4 H Glucose 174 H POC Glucose 145 H 201 H Lactic Acid Calcium Ionized Calcium Phosphorus 1.70 L D Magnesium Direct Bilirubin AST ALT Alkaline Phosphatase 257 H Lactate Dehydrogenase Troponin T C-Reactive Protein Total Protein 5.9 L Albumin 1.8 L Prealbumin Triglycerides Cholesterol LDL Cholesterol Direct HDL Cholesterol 25-OH Vitamin D Total PTH Intact Urine pH Urine WBC (Auto) Urine Creatinine Urine Total Protein Fluid Total Protein Vancomycin Trough Rheumatoid Factor Complement C4 Miscellaneous Test Crossmatch 12/18/16 12/18/16 12/18/16 11:43 16:52 23:52 WBC RBC Hgb Hct MCV MCH MCHC RDW Plt Count Lymph % (Auto) [place] % (Auto) Lymph # [place] # Baso # Seg Neutrophils % Seg Neuts % (Manual) Lymphocytes % (Manual) Monocytes % (Manual) Eosinophils % (Manual) Basophils % (Manual) Nucleated RBC % Seg Neutrophils # Seg Neutrophils # Man Lymphocytes # (Manual) Monocytes # (Manual) Eosinophils # (Manual) Basophils # (Manual) PT INR Fibrinogen dRVVT Confirm Interp Factor V Activity POC ABG pH POC ABG pCO2 POC ABG pO2 ABG pO2 ABG HCO3 ABG Base Excess ABG Hemoglobin Oxyhemoglobin Sodium Potassium Chloride Carbon Dioxide BUN Creatinine Glucose POC Glucose 177 H 110 H 162 H Lactic Acid Calcium Ionized Calcium Phosphorus Magnesium Direct Bilirubin AST ALT Alkaline Phosphatase Lactate Dehydrogenase Troponin T C-Reactive Protein Total Protein Albumin Prealbumin Triglycerides Cholesterol LDL Cholesterol Direct HDL Cholesterol 25-OH Vitamin D Total PTH Intact Urine pH Urine WBC (Auto) Urine Creatinine Urine Total Protein Fluid Total Protein Vancomycin Trough Rheumatoid Factor Complement C4 Miscellaneous Test Crossmatch 12/19/16 12/19/16 12/19/16 05:02 05:24 09:30 WBC 20.1 H RBC 2.73 L Hgb 7.6 L Hct 23.6 L MCV MCH MCHC RDW 17.6 H Plt Count Lymph % (Auto) [place] % (Auto) Lymph # [place] # Baso # Seg Neutrophils % Seg Neuts % (Manual) Lymphocytes % (Manual) 13.0 L Monocytes % (Manual) Eosinophils % (Manual) Basophils % (Manual) Nucleated RBC % 1.0 H Seg Neutrophils # Seg Neutrophils # Man 12.9 H Lymphocytes # (Manual) Monocytes # (Manual) 1.4 H Eosinophils # (Manual) Basophils # (Manual) 0.2 H PT INR Fibrinogen dRVVT Confirm Interp Factor V Activity POC ABG pH POC ABG pCO2 POC ABG pO2 ABG pO2 ABG HCO3 ABG Base Excess ABG Hemoglobin Oxyhemoglobin Sodium Potassium Chloride 97.8 L Carbon Dioxide BUN 84 H Creatinine 1.6 H Glucose 133 H POC Glucose 134 H Lactic Acid Calcium Ionized Calcium Phosphorus Magnesium Direct Bilirubin AST ALT Alkaline Phosphatase Lactate Dehydrogenase Troponin T C-Reactive Protein Total Protein Albumin Prealbumin Triglycerides Cholesterol LDL Cholesterol Direct HDL Cholesterol 25-OH Vitamin D Total PTH Intact Urine pH Urine WBC (Auto) Urine Creatinine Urine Total Protein Fluid Total Protein Vancomycin Trough Rheumatoid Factor Complement C4 Miscellaneous Test Crossmatch 12/19/16 12/19/16 12/19/16 09:36 11:12 18:29 WBC RBC Hgb Hct MCV MCH MCHC RDW Plt Count Lymph % (Auto) [place] % (Auto) Lymph # [place] # Baso # Seg Neutrophils % Seg Neuts % (Manual) Lymphocytes % (Manual) Monocytes % (Manual) Eosinophils % (Manual) Basophils % (Manual) Nucleated RBC % Seg Neutrophils # Seg Neutrophils # Man Lymphocytes # (Manual) Monocytes # (Manual) Eosinophils # (Manual) Basophils # (Manual) PT INR Fibrinogen dRVVT Confirm Interp Factor V Activity POC ABG pH 7.503 H POC ABG pCO2 30.1 L POC ABG pO2 ABG pO2 ABG HCO3 ABG Base Excess ABG Hemoglobin Oxyhemoglobin Sodium Potassium Chloride Carbon Dioxide BUN Creatinine Glucose POC Glucose 138 H 156 H Lactic Acid Calcium Ionized Calcium Phosphorus Magnesium Direct Bilirubin AST ALT Alkaline Phosphatase Lactate Dehydrogenase Troponin T C-Reactive Protein Total Protein Albumin Prealbumin Triglycerides Cholesterol LDL Cholesterol Direct HDL Cholesterol 25-OH Vitamin D Total PTH Intact Urine pH Urine WBC (Auto) Urine Creatinine Urine Total Protein Fluid Total Protein Vancomycin Trough Rheumatoid Factor Complement C4 Miscellaneous Test Crossmatch 12/20/16 12/20/16 12/20/16 00:03 06:17 07:07 WBC RBC Hgb Hct MCV MCH MCHC RDW Plt Count Lymph % (Auto) [place] % (Auto) Lymph # [place] # Baso # Seg Neutrophils % Seg Neuts % (Manual) Lymphocytes % (Manual) Monocytes % (Manual) Eosinophils % (Manual) Basophils % (Manual) Nucleated RBC % Seg Neutrophils # Seg Neutrophils # Man Lymphocytes # (Manual) Monocytes # (Manual) Eosinophils # (Manual) Basophils # (Manual) PT INR Fibrinogen dRVVT Confirm Interp Factor V Activity POC ABG pH POC ABG pCO2 POC ABG pO2 ABG pO2 ABG HCO3 ABG Base Excess ABG Hemoglobin Oxyhemoglobin Sodium Potassium Chloride 97.1 L Carbon Dioxide 20 L BUN 97 H Creatinine 1.8 H Glucose 153 H POC Glucose 152 H 175 H Lactic Acid Calcium Ionized Calcium Phosphorus Magnesium Direct Bilirubin AST ALT Alkaline Phosphatase Lactate Dehydrogenase Troponin T C-Reactive Protein Total Protein Albumin Prealbumin Triglycerides Cholesterol LDL Cholesterol Direct HDL Cholesterol 25-OH Vitamin D Total PTH Intact Urine pH Urine WBC (Auto) Urine Creatinine Urine Total Protein Fluid Total Protein Vancomycin Trough Rheumatoid Factor Complement C4 Miscellaneous Test Crossmatch 12/20/16 12/20/16 12/20/16 12:00 17:42 23:53 WBC RBC Hgb Hct MCV MCH MCHC RDW Plt Count Lymph % (Auto) [place] % (Auto) Lymph # [place] # Baso # Seg Neutrophils % Seg Neuts % (Manual) Lymphocytes % (Manual) Monocytes % (Manual) Eosinophils % (Manual) Basophils % (Manual) Nucleated RBC % Seg Neutrophils # Seg Neutrophils # Man Lymphocytes # (Manual) Monocytes # (Manual) Eosinophils # (Manual) Basophils # (Manual) PT INR Fibrinogen dRVVT Confirm Interp Factor V Activity POC ABG pH POC ABG pCO2 POC ABG pO2 ABG pO2 ABG HCO3 ABG Base Excess ABG Hemoglobin Oxyhemoglobin Sodium Potassium Chloride Carbon Dioxide BUN Creatinine Glucose POC Glucose 141 H 156 H 132 H Lactic Acid Calcium Ionized Calcium Phosphorus Magnesium Direct Bilirubin AST ALT Alkaline Phosphatase Lactate Dehydrogenase Troponin T C-Reactive Protein Total Protein Albumin Prealbumin Triglycerides Cholesterol LDL Cholesterol Direct HDL Cholesterol 25-OH Vitamin D Total PTH Intact Urine pH Urine WBC (Auto) Urine Creatinine Urine Total Protein Fluid Total Protein Vancomycin Trough Rheumatoid Factor Complement C4 Miscellaneous Test Crossmatch 12/21/16 12/21/16 12/21/16 05:49 08:50 12:19 WBC RBC Hgb Hct MCV MCH MCHC RDW Plt Count Lymph % (Auto) [place] % (Auto) Lymph # [place] # Baso # Seg Neutrophils % Seg Neuts % (Manual) Lymphocytes % (Manual) Monocytes % (Manual) Eosinophils % (Manual) Basophils % (Manual) Nucleated RBC % Seg Neutrophils # Seg Neutrophils # Man Lymphocytes # (Manual) Monocytes # (Manual) Eosinophils # (Manual) Basophils # (Manual) PT INR Fibrinogen dRVVT Confirm Interp Factor V Activity POC ABG pH POC ABG pCO2 POC ABG pO2 ABG pO2 ABG HCO3 ABG Base Excess ABG Hemoglobin Oxyhemoglobin Sodium Potassium 5.2 H D Chloride Carbon Dioxide BUN 63 H Creatinine Glucose 122 H POC Glucose 132 H 136 H Lactic Acid Calcium 8.3 L Ionized Calcium Phosphorus Magnesium Direct Bilirubin AST ALT Alkaline Phosphatase Lactate Dehydrogenase Troponin T C-Reactive Protein Total Protein Albumin Prealbumin Triglycerides Cholesterol LDL Cholesterol Direct HDL Cholesterol 25-OH Vitamin D Total PTH Intact Urine pH Urine WBC (Auto) Urine Creatinine Urine Total Protein Fluid Total Protein Vancomycin Trough Rheumatoid Factor Complement C4 Miscellaneous Test Crossmatch 12/21/16 12/21/16 12/22/16 17:22 23:58 05:49 WBC RBC Hgb Hct MCV MCH MCHC RDW Plt Count Lymph % (Auto) [place] % (Auto) Lymph # [place] # Baso # Seg Neutrophils % Seg Neuts % (Manual) Lymphocytes % (Manual) Monocytes % (Manual) Eosinophils % (Manual) Basophils % (Manual) Nucleated RBC % Seg Neutrophils # Seg Neutrophils # Man Lymphocytes # (Manual) Monocytes # (Manual) Eosinophils # (Manual) Basophils # (Manual) PT INR Fibrinogen dRVVT Confirm Interp Factor V Activity POC ABG pH POC ABG pCO2 POC ABG pO2 ABG pO2 ABG HCO3 ABG Base Excess ABG Hemoglobin Oxyhemoglobin Sodium Potassium Chloride Carbon Dioxide BUN Creatinine Glucose POC Glucose 135 H 149 H 140 H Lactic Acid Calcium Ionized Calcium Phosphorus Magnesium Direct Bilirubin AST ALT Alkaline Phosphatase Lactate Dehydrogenase Troponin T C-Reactive Protein Total Protein Albumin Prealbumin Triglycerides Cholesterol LDL Cholesterol Direct HDL Cholesterol 25-OH Vitamin D Total PTH Intact Urine pH Urine WBC (Auto) Urine Creatinine Urine Total Protein Fluid Total Protein Vancomycin Trough Rheumatoid Factor Complement C4 Miscellaneous Test Crossmatch 12/22/16 12/22/16 12/22/16 06:10 11:17 17:31 WBC RBC Hgb Hct MCV MCH MCHC RDW Plt Count Lymph % (Auto) [place] % (Auto) Lymph # [place] # Baso # Seg Neutrophils % Seg Neuts % (Manual) Lymphocytes % (Manual) Monocytes % (Manual) Eosinophils % (Manual) Basophils % (Manual) Nucleated RBC % Seg Neutrophils # Seg Neutrophils # Man Lymphocytes # (Manual) Monocytes # (Manual) Eosinophils # (Manual) Basophils # (Manual) PT INR Fibrinogen dRVVT Confirm Interp Factor V Activity POC ABG pH POC ABG pCO2 POC ABG pO2 ABG pO2 ABG HCO3 ABG Base Excess ABG Hemoglobin Oxyhemoglobin Sodium Potassium Chloride Carbon Dioxide BUN 76 H Creatinine 1.5 H Glucose 241 H POC Glucose 193 H 148 H Lactic Acid Calcium Ionized Calcium Phosphorus Magnesium Direct Bilirubin AST ALT Alkaline Phosphatase Lactate Dehydrogenase Troponin T C-Reactive Protein Total Protein Albumin Prealbumin Triglycerides Cholesterol LDL Cholesterol Direct HDL Cholesterol 25-OH Vitamin D Total PTH Intact Urine pH Urine WBC (Auto) Urine Creatinine Urine Total Protein Fluid Total Protein Vancomycin Trough Rheumatoid Factor Complement C4 Miscellaneous Test Crossmatch 12/22/16 12/23/16 12/23/16 23:58 05:00 05:26 WBC RBC Hgb Hct MCV MCH MCHC RDW Plt Count Lymph % (Auto) [place] % (Auto) Lymph # [place] # Baso # Seg Neutrophils % Seg Neuts % (Manual) Lymphocytes % (Manual) Monocytes % (Manual) Eosinophils % (Manual) Basophils % (Manual) Nucleated RBC % Seg Neutrophils # Seg Neutrophils # Man Lymphocytes # (Manual) Monocytes # (Manual) Eosinophils # (Manual) Basophils # (Manual) PT INR Fibrinogen dRVVT Confirm Interp Factor V Activity POC ABG pH POC ABG pCO2 POC ABG pO2 ABG pO2 ABG HCO3 ABG Base Excess ABG Hemoglobin Oxyhemoglobin Sodium Potassium Chloride Carbon Dioxide BUN 49 H Creatinine Glucose 143 H POC Glucose 165 H 154 H Lactic Acid Calcium 8.2 L Ionized Calcium Phosphorus Magnesium 1.60 L Direct Bilirubin AST ALT Alkaline Phosphatase Lactate Dehydrogenase Troponin T C-Reactive Protein Total Protein Albumin Prealbumin Triglycerides Cholesterol LDL Cholesterol Direct HDL Cholesterol 25-OH Vitamin D Total PTH Intact Urine pH Urine WBC (Auto) Urine Creatinine Urine Total Protein Fluid Total Protein Vancomycin Trough Rheumatoid Factor Complement C4 Miscellaneous Test Crossmatch 12/23/16 12/23/16 12/24/16 12:35 17:01 00:01 WBC RBC Hgb Hct MCV MCH MCHC RDW Plt Count Lymph % (Auto) [place] % (Auto) Lymph # [place] # Baso # Seg Neutrophils % Seg Neuts % (Manual) Lymphocytes % (Manual) Monocytes % (Manual) Eosinophils % (Manual) Basophils % (Manual) Nucleated RBC % Seg Neutrophils # Seg Neutrophils # Man Lymphocytes # (Manual) Monocytes # (Manual) Eosinophils # (Manual) Basophils # (Manual) PT INR Fibrinogen dRVVT Confirm Interp Factor V Activity POC ABG pH POC ABG pCO2 POC ABG pO2 ABG pO2 ABG HCO3 ABG Base Excess ABG Hemoglobin Oxyhemoglobin Sodium Potassium Chloride Carbon Dioxide BUN Creatinine Glucose POC Glucose 164 H 149 H 135 H Lactic Acid Calcium Ionized Calcium Phosphorus Magnesium Direct Bilirubin AST ALT Alkaline Phosphatase Lactate Dehydrogenase Troponin T C-Reactive Protein Total Protein Albumin Prealbumin Triglycerides Cholesterol LDL Cholesterol Direct HDL Cholesterol 25-OH Vitamin D Total PTH Intact Urine pH Urine WBC (Auto) Urine Creatinine Urine Total Protein Fluid Total Protein Vancomycin Trough Rheumatoid Factor Complement C4 Miscellaneous Test Crossmatch 12/24/16 12/24/16 12/24/16 05:41 07:01 11:38 WBC RBC Hgb Hct MCV MCH MCHC RDW Plt Count Lymph % (Auto) [place] % (Auto) Lymph # [place] # Baso # Seg Neutrophils % Seg Neuts % (Manual) Lymphocytes % (Manual) Monocytes % (Manual) Eosinophils % (Manual) Basophils % (Manual) Nucleated RBC % Seg Neutrophils # Seg Neutrophils # Man Lymphocytes # (Manual) Monocytes # (Manual) Eosinophils # (Manual) Basophils # (Manual) PT INR Fibrinogen dRVVT Confirm Interp Factor V Activity POC ABG pH POC ABG pCO2 POC ABG pO2 ABG pO2 ABG HCO3 ABG Base Excess ABG Hemoglobin Oxyhemoglobin Sodium Potassium Chloride Carbon Dioxide BUN 72 H Creatinine 1.3 H Glucose 130 H POC Glucose 132 H 156 H Lactic Acid Calcium 8.2 L Ionized Calcium Phosphorus Magnesium Direct Bilirubin AST ALT Alkaline Phosphatase Lactate Dehydrogenase Troponin T C-Reactive Protein Total Protein Albumin Prealbumin Triglycerides Cholesterol LDL Cholesterol Direct HDL Cholesterol 25-OH Vitamin D Total PTH Intact Urine pH Urine WBC (Auto) Urine Creatinine Urine Total Protein Fluid Total Protein Vancomycin Trough Rheumatoid Factor Complement C4 Miscellaneous Test Crossmatch 12/24/16 12/25/16 12/25/16 17:53 00:23 05:45 WBC RBC Hgb Hct MCV MCH MCHC RDW Plt Count Lymph % (Auto) [place] % (Auto) Lymph # [place] # Baso # Seg Neutrophils % Seg Neuts % (Manual) Lymphocytes % (Manual) Monocytes % (Manual) Eosinophils % (Manual) Basophils % (Manual) Nucleated RBC % Seg Neutrophils # Seg Neutrophils # Man Lymphocytes # (Manual) Monocytes # (Manual) Eosinophils # (Manual) Basophils # (Manual) PT INR Fibrinogen dRVVT Confirm Interp Factor V Activity POC ABG pH POC ABG pCO2 POC ABG pO2 ABG pO2 ABG HCO3 ABG Base Excess ABG Hemoglobin Oxyhemoglobin Sodium 146 H Potassium Chloride Carbon Dioxide BUN 51 H Creatinine Glucose 109 H POC Glucose 169 H 117 H Lactic Acid Calcium Ionized Calcium Phosphorus Magnesium Direct Bilirubin AST ALT Alkaline Phosphatase Lactate Dehydrogenase Troponin T C-Reactive Protein Total Protein Albumin Prealbumin Triglycerides Cholesterol LDL Cholesterol Direct HDL Cholesterol 25-OH Vitamin D Total PTH Intact Urine pH Urine WBC (Auto) Urine Creatinine Urine Total Protein Fluid Total Protein Vancomycin Trough Rheumatoid Factor Complement C4 Miscellaneous Test Crossmatch 12/25/16 12/25/16 12/25/16 06:43 11:29 17:14 WBC RBC Hgb Hct MCV MCH MCHC RDW Plt Count Lymph % (Auto) [place] % (Auto) Lymph # [place] # Baso # Seg Neutrophils % Seg Neuts % (Manual) Lymphocytes % (Manual) Monocytes % (Manual) Eosinophils % (Manual) Basophils % (Manual) Nucleated RBC % Seg Neutrophils # Seg Neutrophils # Man Lymphocytes # (Manual) Monocytes # (Manual) Eosinophils # (Manual) Basophils # (Manual) PT INR Fibrinogen dRVVT Confirm Interp Factor V Activity POC ABG pH POC ABG pCO2 POC ABG pO2 ABG pO2 ABG HCO3 ABG Base Excess ABG Hemoglobin Oxyhemoglobin Sodium Potassium Chloride Carbon Dioxide BUN Creatinine Glucose POC Glucose 117 H 128 H 120 H Lactic Acid Calcium Ionized Calcium Phosphorus Magnesium Direct Bilirubin AST ALT Alkaline Phosphatase Lactate Dehydrogenase Troponin T C-Reactive Protein Total Protein Albumin Prealbumin Triglycerides Cholesterol LDL Cholesterol Direct HDL Cholesterol 25-OH Vitamin D Total PTH Intact Urine pH Urine WBC (Auto) Urine Creatinine Urine Total Protein Fluid Total Protein Vancomycin Trough Rheumatoid Factor Complement C4 Miscellaneous Test Crossmatch 12/25/16 12/26/16 12/26/16 23:54 05:40 05:50 WBC 16.2 H RBC 2.32 L Hgb 6.2 L Hct 20.1 L MCV MCH 27 L MCHC RDW 18.6 H Plt Count Lymph % (Auto) [place] % (Auto) Lymph # [place] # Baso # Seg Neutrophils % Seg Neuts % (Manual) Lymphocytes % (Manual) Monocytes % (Manual) Eosinophils % (Manual) Basophils % (Manual) Nucleated RBC % Seg Neutrophils # Seg Neutrophils # Man Lymphocytes # (Manual) Monocytes # (Manual) Eosinophils # (Manual) Basophils # (Manual) PT INR Fibrinogen dRVVT Confirm Interp Factor V Activity POC ABG pH POC ABG pCO2 POC ABG pO2 ABG pO2 ABG HCO3 ABG Base Excess ABG Hemoglobin Oxyhemoglobin Sodium Potassium Chloride Carbon Dioxide BUN Creatinine Glucose POC Glucose 126 H 132 H Lactic Acid Calcium Ionized Calcium Phosphorus Magnesium Direct Bilirubin AST ALT Alkaline Phosphatase Lactate Dehydrogenase Troponin T C-Reactive Protein Total Protein Albumin Prealbumin Triglycerides Cholesterol LDL Cholesterol Direct HDL Cholesterol 25-OH Vitamin D Total PTH Intact Urine pH Urine WBC (Auto) Urine Creatinine Urine Total Protein Fluid Total Protein Vancomycin Trough Rheumatoid Factor Complement C4 Miscellaneous Test Crossmatch 12/26/16 12/26/16 12/26/16 05:50 12:17 12:33 WBC RBC Hgb Hct MCV MCH MCHC RDW Plt Count Lymph % (Auto) [place] % (Auto) Lymph # [place] # Baso # Seg Neutrophils % Seg Neuts % (Manual) Lymphocytes % (Manual) Monocytes % (Manual) Eosinophils % (Manual) Basophils % (Manual) Nucleated RBC % Seg Neutrophils # Seg Neutrophils # Man Lymphocytes # (Manual) Monocytes # (Manual) Eosinophils # (Manual) Basophils # (Manual) PT INR Fibrinogen dRVVT Confirm Interp Factor V Activity POC ABG pH POC ABG pCO2 POC ABG pO2 ABG pO2 ABG HCO3 ABG Base Excess ABG Hemoglobin Oxyhemoglobin Sodium Potassium Chloride Carbon Dioxide BUN 73 H Creatinine 1.3 H Glucose 113 H POC Glucose 117 H Lactic Acid Calcium Ionized Calcium Phosphorus Magnesium Direct Bilirubin AST ALT Alkaline Phosphatase Lactate Dehydrogenase Troponin T C-Reactive Protein Total Protein Albumin Prealbumin Triglycerides Cholesterol LDL Cholesterol Direct HDL Cholesterol 25-OH Vitamin D Total PTH Intact Urine pH Urine WBC (Auto) Urine Creatinine Urine Total Protein Fluid Total Protein Vancomycin Trough Rheumatoid Factor Complement C4 Miscellaneous Test Crossmatch See Detail 12/26/16 12/26/16 12/27/16 20:00 23:21 05:00 WBC RBC Hgb 8.4 L Hct 26.3 L D MCV MCH MCHC RDW Plt Count Lymph % (Auto) [place] % (Auto) Lymph # [place] # Baso # Seg Neutrophils % Seg Neuts % (Manual) Lymphocytes % (Manual) Monocytes % (Manual) Eosinophils % (Manual) Basophils % (Manual) Nucleated RBC % Seg Neutrophils # Seg Neutrophils # Man Lymphocytes # (Manual) Monocytes # (Manual) Eosinophils # (Manual) Basophils # (Manual) PT INR Fibrinogen dRVVT Confirm Interp Factor V Activity POC ABG pH POC ABG pCO2 POC ABG pO2 ABG pO2 ABG HCO3 ABG Base Excess ABG Hemoglobin Oxyhemoglobin Sodium Potassium Chloride Carbon Dioxide BUN 85 H Creatinine 1.6 H Glucose 118 H POC Glucose 124 H Lactic Acid Calcium Ionized Calcium Phosphorus 4.80 H Magnesium Direct Bilirubin AST ALT Alkaline Phosphatase Lactate Dehydrogenase Troponin T C-Reactive Protein Total Protein Albumin Prealbumin Triglycerides Cholesterol LDL Cholesterol Direct HDL Cholesterol 25-OH Vitamin D Total PTH Intact Urine pH Urine WBC (Auto) Urine Creatinine Urine Total Protein Fluid Total Protein Vancomycin Trough Rheumatoid Factor Complement C4 Miscellaneous Test Crossmatch 12/27/16 12/27/16 12/27/16 05:00 05:35 12:24 WBC RBC Hgb 7.6 L Hct 22.8 L MCV MCH MCHC RDW Plt Count Lymph % (Auto) [place] % (Auto) Lymph # [place] # Baso # Seg Neutrophils % Seg Neuts % (Manual) Lymphocytes % (Manual) Monocytes % (Manual) Eosinophils % (Manual) Basophils % (Manual) Nucleated RBC % Seg Neutrophils # Seg Neutrophils # Man Lymphocytes # (Manual) Monocytes # (Manual) Eosinophils # (Manual) Basophils # (Manual) PT INR Fibrinogen dRVVT Confirm Interp Factor V Activity POC ABG pH POC ABG pCO2 POC ABG pO2 ABG pO2 ABG HCO3 ABG Base Excess ABG Hemoglobin Oxyhemoglobin Sodium Potassium Chloride Carbon Dioxide BUN Creatinine Glucose POC Glucose 115 H 131 H Lactic Acid Calcium Ionized Calcium Phosphorus Magnesium Direct Bilirubin AST ALT Alkaline Phosphatase Lactate Dehydrogenase Troponin T C-Reactive Protein Total Protein Albumin Prealbumin Triglycerides Cholesterol LDL Cholesterol Direct HDL Cholesterol 25-OH Vitamin D Total PTH Intact Urine pH Urine WBC (Auto) Urine Creatinine Urine Total Protein Fluid Total Protein Vancomycin Trough Rheumatoid Factor Complement C4 Miscellaneous Test Crossmatch 12/27/16 12/28/16 12/28/16 17:16 00:18 04:00 WBC RBC Hgb Hct MCV MCH MCHC RDW Plt Count Lymph % (Auto) [place] % (Auto) Lymph # [place] # Baso # Seg Neutrophils % Seg Neuts % (Manual) Lymphocytes % (Manual) Monocytes % (Manual) Eosinophils % (Manual) Basophils % (Manual) Nucleated RBC % Seg Neutrophils # Seg Neutrophils # Man Lymphocytes # (Manual) Monocytes # (Manual) Eosinophils # (Manual) Basophils # (Manual) PT INR Fibrinogen dRVVT Confirm Interp Factor V Activity POC ABG pH POC ABG pCO2 POC ABG pO2 ABG pO2 ABG HCO3 ABG Base Excess ABG Hemoglobin Oxyhemoglobin Sodium Potassium 3.5 L Chloride Carbon Dioxide BUN 57 H Creatinine Glucose 118 H POC Glucose 136 H 120 H Lactic Acid Calcium 8.3 L Ionized Calcium Phosphorus Magnesium Direct Bilirubin AST ALT Alkaline Phosphatase Lactate Dehydrogenase Troponin T C-Reactive Protein Total Protein Albumin Prealbumin Triglycerides Cholesterol LDL Cholesterol Direct HDL Cholesterol 25-OH Vitamin D Total PTH Intact Urine pH Urine WBC (Auto) Urine Creatinine Urine Total Protein Fluid Total Protein Vancomycin Trough Rheumatoid Factor Complement C4 Miscellaneous Test Crossmatch 12/28/16 12/28/16 12/28/16 04:00 05:11 08:30 WBC 17.0 H RBC 2.58 L Hgb 7.1 L Hct 22.0 L MCV MCH MCHC RDW 17.6 H Plt Count Lymph % (Auto) 12.2 L [place] % (Auto) Lymph # [place] # 1.1 H Baso # Seg Neutrophils % 80.5 H Seg Neuts % (Manual) Lymphocytes % (Manual) Monocytes % (Manual) Eosinophils % (Manual) Basophils % (Manual) Nucleated RBC % Seg Neutrophils # 13.7 H Seg Neutrophils # Man Lymphocytes # (Manual) Monocytes # (Manual) Eosinophils # (Manual) Basophils # (Manual) PT 16.1 H INR 1.23 H Fibrinogen dRVVT Confirm Interp Factor V Activity POC ABG pH POC ABG pCO2 POC ABG pO2 ABG pO2 ABG HCO3 ABG Base Excess ABG Hemoglobin Oxyhemoglobin Sodium Potassium Chloride Carbon Dioxide BUN Creatinine Glucose POC Glucose 122 H Lactic Acid Calcium Ionized Calcium Phosphorus Magnesium Direct Bilirubin AST ALT Alkaline Phosphatase Lactate Dehydrogenase Troponin T C-Reactive Protein Total Protein Albumin Prealbumin Triglycerides Cholesterol LDL Cholesterol Direct HDL Cholesterol 25-OH Vitamin D Total PTH Intact Urine pH Urine WBC (Auto) Urine Creatinine Urine Total Protein Fluid Total Protein Vancomycin Trough Rheumatoid Factor Complement C4 Miscellaneous Test Crossmatch 12/28/16 12/28/16 12/28/16 12:27 16:32 23:46 WBC RBC Hgb Hct MCV MCH MCHC RDW Plt Count Lymph % (Auto) [place] % (Auto) Lymph # [place] # Baso # Seg Neutrophils % Seg Neuts % (Manual) Lymphocytes % (Manual) Monocytes % (Manual) Eosinophils % (Manual) Basophils % (Manual) Nucleated RBC % Seg Neutrophils # Seg Neutrophils # Man Lymphocytes # (Manual) Monocytes # (Manual) Eosinophils # (Manual) Basophils # (Manual) PT INR Fibrinogen dRVVT Confirm Interp Factor V Activity POC ABG pH POC ABG pCO2 POC ABG pO2 ABG pO2 ABG HCO3 ABG Base Excess ABG Hemoglobin Oxyhemoglobin Sodium Potassium Chloride Carbon Dioxide BUN Creatinine Glucose POC Glucose 127 H 117 H 108 H Lactic Acid Calcium Ionized Calcium Phosphorus Magnesium Direct Bilirubin AST ALT Alkaline Phosphatase Lactate Dehydrogenase Troponin T C-Reactive Protein Total Protein Albumin Prealbumin Triglycerides Cholesterol LDL Cholesterol Direct HDL Cholesterol 25-OH Vitamin D Total PTH Intact Urine pH Urine WBC (Auto) Urine Creatinine Urine Total Protein Fluid Total Protein Vancomycin Trough Rheumatoid Factor Complement C4 Miscellaneous Test Crossmatch 12/29/16 12/29/16 12/29/16 05:15 05:15 05:32 WBC RBC Hgb Hct MCV MCH MCHC RDW Plt Count Lymph % (Auto) [place] % (Auto) Lymph # [place] # Baso # Seg Neutrophils % Seg Neuts % (Manual) Lymphocytes % (Manual) Monocytes % (Manual) Eosinophils % (Manual) Basophils % (Manual) Nucleated RBC % Seg Neutrophils # Seg Neutrophils # Man Lymphocytes # (Manual) Monocytes # (Manual) Eosinophils # (Manual) Basophils # (Manual) PT INR Fibrinogen dRVVT Confirm Interp Factor V Activity POC ABG pH POC ABG pCO2 POC ABG pO2 ABG pO2 ABG HCO3 ABG Base Excess ABG Hemoglobin Oxyhemoglobin Sodium Potassium Chloride Carbon Dioxide BUN 74 H Creatinine 1.6 H Glucose 111 H POC Glucose 123 H Lactic Acid Calcium Ionized Calcium Phosphorus Magnesium Direct Bilirubin AST ALT Alkaline Phosphatase Lactate Dehydrogenase Troponin T C-Reactive Protein Total Protein Albumin Prealbumin 0.110 L Triglycerides Cholesterol LDL Cholesterol Direct HDL Cholesterol 25-OH Vitamin D Total PTH Intact Urine pH Urine WBC (Auto) Urine Creatinine Urine Total Protein Fluid Total Protein Vancomycin Trough Rheumatoid Factor Complement C4 Miscellaneous Test Crossmatch 12/29/16 12/29/16 12/29/16 11:43 13:45 14:00 WBC 13.8 H RBC 2.26 L Hgb 6.3 L Hct 20.4 L MCV MCH MCHC RDW 18.3 H Plt Count Lymph % (Auto) [place] % (Auto) Lymph # [place] # 0.9 H Baso # Seg Neutrophils % 78.6 H Seg Neuts % (Manual) Lymphocytes % (Manual) Monocytes % (Manual) Eosinophils % (Manual) Basophils % (Manual) Nucleated RBC % Seg Neutrophils # 10.8 H Seg Neutrophils # Man Lymphocytes # (Manual) Monocytes # (Manual) Eosinophils # (Manual) Basophils # (Manual) PT INR Fibrinogen dRVVT Confirm Interp Factor V Activity POC ABG pH POC ABG pCO2 POC ABG pO2 ABG pO2 ABG HCO3 ABG Base Excess ABG Hemoglobin Oxyhemoglobin Sodium Potassium Chloride Carbon Dioxide BUN Creatinine Glucose POC Glucose 133 H Lactic Acid Calcium Ionized Calcium Phosphorus Magnesium Direct Bilirubin AST ALT Alkaline Phosphatase Lactate Dehydrogenase Troponin T C-Reactive Protein Total Protein Albumin Prealbumin Triglycerides Cholesterol LDL Cholesterol Direct HDL Cholesterol 25-OH Vitamin D Total PTH Intact Urine pH Urine WBC (Auto) Urine Creatinine Urine Total Protein Fluid Total Protein Vancomycin Trough Rheumatoid Factor Complement C4 Miscellaneous Test Crossmatch See Detail 12/29/16 12/29/16 12/29/16 17:03 23:15 23:22 WBC RBC Hgb 7.3 L Hct 22.3 L MCV MCH MCHC RDW Plt Count Lymph % (Auto) [place] % (Auto) Lymph # [place] # Baso # Seg Neutrophils % Seg Neuts % (Manual) Lymphocytes % (Manual) Monocytes % (Manual) Eosinophils % (Manual) Basophils % (Manual) Nucleated RBC % Seg Neutrophils # Seg Neutrophils # Man Lymphocytes # (Manual) Monocytes # (Manual) Eosinophils # (Manual) Basophils # (Manual) PT INR Fibrinogen dRVVT Confirm Interp Factor V Activity POC ABG pH POC ABG pCO2 POC ABG pO2 ABG pO2 ABG HCO3 ABG Base Excess ABG Hemoglobin Oxyhemoglobin Sodium Potassium Chloride Carbon Dioxide BUN Creatinine Glucose POC Glucose 139 H 120 H Lactic Acid Calcium Ionized Calcium Phosphorus Magnesium Direct Bilirubin AST ALT Alkaline Phosphatase Lactate Dehydrogenase Troponin T C-Reactive Protein Total Protein Albumin Prealbumin Triglycerides Cholesterol LDL Cholesterol Direct HDL Cholesterol 25-OH Vitamin D Total PTH Intact Urine pH Urine WBC (Auto) Urine Creatinine Urine Total Protein Fluid Total Protein Vancomycin Trough Rheumatoid Factor Complement C4 Miscellaneous Test Crossmatch 12/30/16 12/30/16 12/30/16 04:20 04:20 05:43 WBC 15.6 H RBC 2.81 L Hgb 8.0 L Hct 24.0 L MCV MCH MCHC RDW 16.9 H Plt Count Lymph % (Auto) [place] % (Auto) Lymph # [place] # 1.0 H Baso # Seg Neutrophils % 76.2 H Seg Neuts % (Manual) Lymphocytes % (Manual) Monocytes % (Manual) Eosinophils % (Manual) Basophils % (Manual) Nucleated RBC % Seg Neutrophils # 11.9 H Seg Neutrophils # Man Lymphocytes # (Manual) Monocytes # (Manual) Eosinophils # (Manual) Basophils # (Manual) PT INR Fibrinogen dRVVT Confirm Interp Factor V Activity POC ABG pH POC ABG pCO2 POC ABG pO2 ABG pO2 ABG HCO3 ABG Base Excess ABG Hemoglobin Oxyhemoglobin Sodium Potassium Chloride Carbon Dioxide BUN 87 H Creatinine 1.8 H Glucose 119 H POC Glucose 115 H Lactic Acid Calcium Ionized Calcium Phosphorus Magnesium Direct Bilirubin AST ALT Alkaline Phosphatase Lactate Dehydrogenase Troponin T C-Reactive Protein Total Protein Albumin Prealbumin Triglycerides Cholesterol LDL Cholesterol Direct HDL Cholesterol 25-OH Vitamin D Total PTH Intact Urine pH Urine WBC (Auto) Urine Creatinine Urine Total Protein Fluid Total Protein Vancomycin Trough Rheumatoid Factor Complement C4 Miscellaneous Test Crossmatch 12/30/16 12/30/16 12/31/16 17:27 23:21 04:00 WBC RBC Hgb Hct MCV MCH MCHC RDW Plt Count Lymph % (Auto) [place] % (Auto) Lymph # [place] # Baso # Seg Neutrophils % Seg Neuts % (Manual) Lymphocytes % (Manual) Monocytes % (Manual) Eosinophils % (Manual) Basophils % (Manual) Nucleated RBC % Seg Neutrophils # Seg Neutrophils # Man Lymphocytes # (Manual) Monocytes # (Manual) Eosinophils # (Manual) Basophils # (Manual) PT INR Fibrinogen dRVVT Confirm Interp Factor V Activity POC ABG pH POC ABG pCO2 POC ABG pO2 ABG pO2 ABG HCO3 ABG Base Excess ABG Hemoglobin Oxyhemoglobin Sodium Potassium Chloride Carbon Dioxide BUN 59 H Creatinine Glucose 298 H POC Glucose 144 H 125 H Lactic Acid Calcium Ionized Calcium Phosphorus Magnesium Direct Bilirubin AST ALT Alkaline Phosphatase Lactate Dehydrogenase Troponin T C-Reactive Protein Total Protein Albumin Prealbumin Triglycerides Cholesterol LDL Cholesterol Direct HDL Cholesterol 25-OH Vitamin D Total PTH Intact Urine pH Urine WBC (Auto) Urine Creatinine Urine Total Protein Fluid Total Protein Vancomycin Trough Rheumatoid Factor Complement C4 Miscellaneous Test Crossmatch 12/31/16 12/31/16 12/31/16 05:11 12:18 18:17 WBC RBC Hgb Hct MCV MCH MCHC RDW Plt Count Lymph % (Auto) [place] % (Auto) Lymph # [place] # Baso # Seg Neutrophils % Seg Neuts % (Manual) Lymphocytes % (Manual) Monocytes % (Manual) Eosinophils % (Manual) Basophils % (Manual) Nucleated RBC % Seg Neutrophils # Seg Neutrophils # Man Lymphocytes # (Manual) Monocytes # (Manual) Eosinophils # (Manual) Basophils # (Manual) PT INR Fibrinogen dRVVT Confirm Interp Factor V Activity POC ABG pH POC ABG pCO2 POC ABG pO2 ABG pO2 ABG HCO3 ABG Base Excess ABG Hemoglobin Oxyhemoglobin Sodium Potassium Chloride Carbon Dioxide BUN Creatinine Glucose POC Glucose 167 H 125 H 133 H Lactic Acid Calcium Ionized Calcium Phosphorus Magnesium Direct Bilirubin AST ALT Alkaline Phosphatase Lactate Dehydrogenase Troponin T C-Reactive Protein Total Protein Albumin Prealbumin Triglycerides Cholesterol LDL Cholesterol Direct HDL Cholesterol 25-OH Vitamin D Total PTH Intact Urine pH Urine WBC (Auto) Urine Creatinine Urine Total Protein Fluid Total Protein Vancomycin Trough Rheumatoid Factor Complement C4 Miscellaneous Test Crossmatch 12/31/16 01/01/17 01/01/17 23:55 05:00 05:12 WBC RBC Hgb Hct MCV MCH MCHC RDW Plt Count Lymph % (Auto) [place] % (Auto) Lymph # [place] # Baso # Seg Neutrophils % Seg Neuts % (Manual) Lymphocytes % (Manual) Monocytes % (Manual) Eosinophils % (Manual) Basophils % (Manual) Nucleated RBC % Seg Neutrophils # Seg Neutrophils # Man Lymphocytes # (Manual) Monocytes # (Manual) Eosinophils # (Manual) Basophils # (Manual) PT INR Fibrinogen dRVVT Confirm Interp Factor V Activity POC ABG pH POC ABG pCO2 POC ABG pO2 ABG pO2 ABG HCO3 ABG Base Excess ABG Hemoglobin Oxyhemoglobin Sodium Potassium Chloride Carbon Dioxide BUN 76 H Creatinine 1.5 H Glucose 109 H POC Glucose 129 H 129 H Lactic Acid Calcium Ionized Calcium Phosphorus Magnesium Direct Bilirubin AST ALT Alkaline Phosphatase 536 H Lactate Dehydrogenase Troponin T C-Reactive Protein Total Protein Albumin 1.5 L Prealbumin Triglycerides Cholesterol LDL Cholesterol Direct HDL Cholesterol 25-OH Vitamin D Total PTH Intact Urine pH Urine WBC (Auto) Urine Creatinine Urine Total Protein Fluid Total Protein Vancomycin Trough Rheumatoid Factor Complement C4 Miscellaneous Test Crossmatch 01/01/17 01/01/17 01/01/17 12:25 17:01 23:32 WBC RBC Hgb Hct MCV MCH MCHC RDW Plt Count Lymph % (Auto) [place] % (Auto) Lymph # [place] # Baso # Seg Neutrophils % Seg Neuts % (Manual) Lymphocytes % (Manual) Monocytes % (Manual) Eosinophils % (Manual) Basophils % (Manual) Nucleated RBC % Seg Neutrophils # Seg Neutrophils # Man Lymphocytes # (Manual) Monocytes # (Manual) Eosinophils # (Manual) Basophils # (Manual) PT INR Fibrinogen dRVVT Confirm Interp Factor V Activity POC ABG pH POC ABG pCO2 POC ABG pO2 ABG pO2 ABG HCO3 ABG Base Excess ABG Hemoglobin Oxyhemoglobin Sodium Potassium Chloride Carbon Dioxide BUN Creatinine Glucose POC Glucose 140 H 142 H 112 H Lactic Acid Calcium Ionized Calcium Phosphorus Magnesium Direct Bilirubin AST ALT Alkaline Phosphatase Lactate Dehydrogenase Troponin T C-Reactive Protein Total Protein Albumin Prealbumin Triglycerides Cholesterol LDL Cholesterol Direct HDL Cholesterol 25-OH Vitamin D Total PTH Intact Urine pH Urine WBC (Auto) Urine Creatinine Urine Total Protein Fluid Total Protein Vancomycin Trough Rheumatoid Factor Complement C4 Miscellaneous Test Crossmatch 01/02/17 01/02/17 01/02/17 04:56 06:00 11:37 WBC RBC Hgb Hct MCV MCH MCHC RDW Plt Count Lymph % (Auto) [place] % (Auto) Lymph # [place] # Baso # Seg Neutrophils % Seg Neuts % (Manual) Lymphocytes % (Manual) Monocytes % (Manual) Eosinophils % (Manual) Basophils % (Manual) Nucleated RBC % Seg Neutrophils # Seg Neutrophils # Man Lymphocytes # (Manual) Monocytes # (Manual) Eosinophils # (Manual) Basophils # (Manual) PT INR Fibrinogen dRVVT Confirm Interp Factor V Activity POC ABG pH POC ABG pCO2 POC ABG pO2 ABG pO2 ABG HCO3 ABG Base Excess ABG Hemoglobin Oxyhemoglobin Sodium Potassium Chloride Carbon Dioxide BUN 88 H Creatinine 1.7 H Glucose 113 H POC Glucose 136 H 200 H Lactic Acid Calcium Ionized Calcium Phosphorus Magnesium Direct Bilirubin AST ALT Alkaline Phosphatase Lactate Dehydrogenase Troponin T C-Reactive Protein Total Protein Albumin Prealbumin Triglycerides Cholesterol LDL Cholesterol Direct HDL Cholesterol 25-OH Vitamin D Total PTH Intact Urine pH Urine WBC (Auto) Urine Creatinine Urine Total Protein Fluid Total Protein Vancomycin Trough Rheumatoid Factor Complement C4 Miscellaneous Test Crossmatch 01/02/17 01/02/17 01/03/17 17:42 22:52 04:54 WBC RBC Hgb Hct MCV MCH MCHC RDW Plt Count Lymph % (Auto) [place] % (Auto) Lymph # [place] # Baso # Seg Neutrophils % Seg Neuts % (Manual) Lymphocytes % (Manual) Monocytes % (Manual) Eosinophils % (Manual) Basophils % (Manual) Nucleated RBC % Seg Neutrophils # Seg Neutrophils # Man Lymphocytes # (Manual) Monocytes # (Manual) Eosinophils # (Manual) Basophils # (Manual) PT INR Fibrinogen dRVVT Confirm Interp Factor V Activity POC ABG pH POC ABG pCO2 POC ABG pO2 ABG pO2 ABG HCO3 ABG Base Excess ABG Hemoglobin Oxyhemoglobin Sodium Potassium Chloride Carbon Dioxide BUN Creatinine Glucose POC Glucose 112 H 133 H 111 H Lactic Acid Calcium Ionized Calcium Phosphorus Magnesium Direct Bilirubin AST ALT Alkaline Phosphatase Lactate Dehydrogenase Troponin T C-Reactive Protein Total Protein Albumin Prealbumin Triglycerides Cholesterol LDL Cholesterol Direct HDL Cholesterol 25-OH Vitamin D Total PTH Intact Urine pH Urine WBC (Auto) Urine Creatinine Urine Total Protein Fluid Total Protein Vancomycin Trough Rheumatoid Factor Complement C4 Miscellaneous Test Crossmatch 01/03/17 01/03/17 01/03/17 05:00 05:00 14:02 WBC 11.2 H RBC 2.56 L Hgb 7.2 L Hct 22.3 L MCV MCH MCHC RDW 17.3 H Plt Count Lymph % (Auto) [place] % (Auto) 10.0 H Lymph # [place] # 1.1 H Baso # Seg Neutrophils % 70.5 H Seg Neuts % (Manual) Lymphocytes % (Manual) Monocytes % (Manual) Eosinophils % (Manual) Basophils % (Manual) Nucleated RBC % Seg Neutrophils # 7.9 H Seg Neutrophils # Man Lymphocytes # (Manual) Monocytes # (Manual) Eosinophils # (Manual) Basophils # (Manual) PT INR Fibrinogen dRVVT Confirm Interp Factor V Activity POC ABG pH POC ABG pCO2 POC ABG pO2 ABG pO2 ABG HCO3 ABG Base Excess ABG Hemoglobin Oxyhemoglobin Sodium Potassium Chloride Carbon Dioxide BUN 60 H Creatinine 1.3 H Glucose 110 H POC Glucose 119 H Lactic Acid Calcium Ionized Calcium Phosphorus Magnesium Direct Bilirubin AST ALT Alkaline Phosphatase Lactate Dehydrogenase Troponin T C-Reactive Protein Total Protein Albumin Prealbumin Triglycerides Cholesterol LDL Cholesterol Direct HDL Cholesterol 25-OH Vitamin D Total PTH Intact Urine pH Urine WBC (Auto) Urine Creatinine Urine Total Protein Fluid Total Protein Vancomycin Trough Rheumatoid Factor Complement C4 Miscellaneous Test Crossmatch 01/03/17 01/03/17 01/04/17 18:13 23:40 05:57 WBC RBC Hgb Hct MCV MCH MCHC RDW Plt Count Lymph % (Auto) [place] % (Auto) Lymph # [place] # Baso # Seg Neutrophils % Seg Neuts % (Manual) Lymphocytes % (Manual) Monocytes % (Manual) Eosinophils % (Manual) Basophils % (Manual) Nucleated RBC % Seg Neutrophils # Seg Neutrophils # Man Lymphocytes # (Manual) Monocytes # (Manual) Eosinophils # (Manual) Basophils # (Manual) PT INR Fibrinogen dRVVT Confirm Interp Factor V Activity POC ABG pH POC ABG pCO2 POC ABG pO2 ABG pO2 ABG HCO3 ABG Base Excess ABG Hemoglobin Oxyhemoglobin Sodium Potassium Chloride Carbon Dioxide BUN Creatinine Glucose POC Glucose 107 H 129 H 111 H Lactic Acid Calcium Ionized Calcium Phosphorus Magnesium Direct Bilirubin AST ALT Alkaline Phosphatase Lactate Dehydrogenase Troponin T C-Reactive Protein Total Protein Albumin Prealbumin Triglycerides Cholesterol LDL Cholesterol Direct HDL Cholesterol 25-OH Vitamin D Total PTH Intact Urine pH Urine WBC (Auto) Urine Creatinine Urine Total Protein Fluid Total Protein Vancomycin Trough Rheumatoid Factor Complement C4 Miscellaneous Test Crossmatch 01/04/17 01/04/17 01/04/17 12:46 15:27 17:11 WBC RBC Hgb Hct MCV MCH MCHC RDW Plt Count Lymph % (Auto) [place] % (Auto) Lymph # [place] # Baso # Seg Neutrophils % Seg Neuts % (Manual) Lymphocytes % (Manual) Monocytes % (Manual) Eosinophils % (Manual) Basophils % (Manual) Nucleated RBC % Seg Neutrophils # Seg Neutrophils # Man Lymphocytes # (Manual) Monocytes # (Manual) Eosinophils # (Manual) Basophils # (Manual) PT INR Fibrinogen dRVVT Confirm Interp Factor V Activity POC ABG pH POC ABG pCO2 POC ABG pO2 ABG pO2 ABG HCO3 ABG Base Excess ABG Hemoglobin Oxyhemoglobin Sodium Potassium Chloride Carbon Dioxide BUN 43 H Creatinine Glucose 124 H POC Glucose 159 H 125 H Lactic Acid Calcium 8.0 L Ionized Calcium Phosphorus 2.10 L Magnesium Direct Bilirubin AST ALT Alkaline Phosphatase Lactate Dehydrogenase Troponin T C-Reactive Protein Total Protein Albumin Prealbumin Triglycerides Cholesterol LDL Cholesterol Direct HDL Cholesterol 25-OH Vitamin D Total PTH Intact Urine pH Urine WBC (Auto) Urine Creatinine Urine Total Protein Fluid Total Protein Vancomycin Trough Rheumatoid Factor Complement C4 Miscellaneous Test Crossmatch 01/04/17 01/05/17 01/05/17 23:31 04:00 05:46 WBC RBC Hgb Hct MCV MCH MCHC RDW Plt Count Lymph % (Auto) [place] % (Auto) Lymph # [place] # Baso # Seg Neutrophils % Seg Neuts % (Manual) Lymphocytes % (Manual) Monocytes % (Manual) Eosinophils % (Manual) Basophils % (Manual) Nucleated RBC % Seg Neutrophils # Seg Neutrophils # Man Lymphocytes # (Manual) Monocytes # (Manual) Eosinophils # (Manual) Basophils # (Manual) PT INR Fibrinogen dRVVT Confirm Interp Factor V Activity POC ABG pH POC ABG pCO2 POC ABG pO2 ABG pO2 ABG HCO3 ABG Base Excess ABG Hemoglobin Oxyhemoglobin Sodium Potassium Chloride Carbon Dioxide BUN 52 H Creatinine 1.3 H Glucose 113 H POC Glucose 123 H 118 H Lactic Acid Calcium Ionized Calcium Phosphorus 2.40 L Magnesium Direct Bilirubin AST ALT Alkaline Phosphatase Lactate Dehydrogenase Troponin T C-Reactive Protein Total Protein Albumin Prealbumin Triglycerides Cholesterol LDL Cholesterol Direct HDL Cholesterol 25-OH Vitamin D Total PTH Intact Urine pH Urine WBC (Auto) Urine Creatinine Urine Total Protein Fluid Total Protein Vancomycin Trough Rheumatoid Factor Complement C4 Miscellaneous Test Crossmatch 01/05/17 01/05/17 01/05/17 11:41 17:48 23:27 WBC RBC Hgb Hct MCV MCH MCHC RDW Plt Count Lymph % (Auto) [place] % (Auto) Lymph # [place] # Baso # Seg Neutrophils % Seg Neuts % (Manual) Lymphocytes % (Manual) Monocytes % (Manual) Eosinophils % (Manual) Basophils % (Manual) Nucleated RBC % Seg Neutrophils # Seg Neutrophils # Man Lymphocytes # (Manual) Monocytes # (Manual) Eosinophils # (Manual) Basophils # (Manual) PT INR Fibrinogen dRVVT Confirm Interp Factor V Activity POC ABG pH POC ABG pCO2 POC ABG pO2 ABG pO2 ABG HCO3 ABG Base Excess ABG Hemoglobin Oxyhemoglobin Sodium Potassium Chloride Carbon Dioxide BUN Creatinine Glucose POC Glucose 163 H 142 H 155 H Lactic Acid Calcium Ionized Calcium Phosphorus Magnesium Direct Bilirubin AST ALT Alkaline Phosphatase Lactate Dehydrogenase Troponin T C-Reactive Protein Total Protein Albumin Prealbumin Triglycerides Cholesterol LDL Cholesterol Direct HDL Cholesterol 25-OH Vitamin D Total PTH Intact Urine pH Urine WBC (Auto) Urine Creatinine Urine Total Protein Fluid Total Protein Vancomycin Trough Rheumatoid Factor Complement C4 Miscellaneous Test Crossmatch 01/06/17 01/06/17 01/06/17 05:20 07:35 11:18 WBC RBC Hgb Hct MCV MCH MCHC RDW Plt Count Lymph % (Auto) [place] % (Auto) Lymph # [place] # Baso # Seg Neutrophils % Seg Neuts % (Manual) Lymphocytes % (Manual) Monocytes % (Manual) Eosinophils % (Manual) Basophils % (Manual) Nucleated RBC % Seg Neutrophils # Seg Neutrophils # Man Lymphocytes # (Manual) Monocytes # (Manual) Eosinophils # (Manual) Basophils # (Manual) PT INR Fibrinogen dRVVT Confirm Interp Factor V Activity POC ABG pH POC ABG pCO2 POC ABG pO2 ABG pO2 ABG HCO3 ABG Base Excess ABG Hemoglobin Oxyhemoglobin Sodium Potassium Chloride Carbon Dioxide BUN 74 H Creatinine 1.6 H Glucose 135 H POC Glucose 108 H 149 H Lactic Acid Calcium Ionized Calcium Phosphorus Magnesium Direct Bilirubin AST ALT Alkaline Phosphatase Lactate Dehydrogenase Troponin T C-Reactive Protein Total Protein Albumin Prealbumin Triglycerides Cholesterol LDL Cholesterol Direct HDL Cholesterol 25-OH Vitamin D Total PTH Intact Urine pH Urine WBC (Auto) Urine Creatinine Urine Total Protein Fluid Total Protein Vancomycin Trough Rheumatoid Factor Complement C4 Miscellaneous Test Crossmatch 01/06/17 01/07/17 01/07/17 1717 00:23 05:31 WBC RBC Hgb Hct MCV MCH MCHC RDW Plt Count Lymph % (Auto) [place] % (Auto) Lymph # [place] # Baso # Seg Neutrophils % Seg Neuts % (Manual) Lymphocytes % (Manual) Monocytes % (Manual) Eosinophils % (Manual) Basophils % (Manual) Nucleated RBC % Seg Neutrophils # Seg Neutrophils # Man Lymphocytes # (Manual) Monocytes # (Manual) Eosinophils # (Manual) Basophils # (Manual) PT INR Fibrinogen dRVVT Confirm Interp Factor V Activity POC ABG pH POC ABG pCO2 POC ABG pO2 ABG pO2 ABG HCO3 ABG Base Excess ABG Hemoglobin Oxyhemoglobin Sodium Potassium Chloride Carbon Dioxide BUN Creatinine Glucose POC Glucose 146 H 165 H 153 H Lactic Acid Calcium Ionized Calcium Phosphorus Magnesium Direct Bilirubin AST ALT Alkaline Phosphatase Lactate Dehydrogenase Troponin T C-Reactive Protein Total Protein Albumin Prealbumin Triglycerides Cholesterol LDL Cholesterol Direct HDL Cholesterol 25-OH Vitamin D Total PTH Intact Urine pH Urine WBC (Auto) Urine Creatinine Urine Total Protein Fluid Total Protein Vancomycin Trough Rheumatoid Factor Complement C4 Miscellaneous Test Crossmatch 01/07/17 01/07/17 01/07/17 06:00 11:39 17:11 WBC RBC Hgb Hct MCV MCH MCHC RDW Plt Count Lymph % (Auto) [place] % (Auto) Lymph # [place] # Baso # Seg Neutrophils % Seg Neuts % (Manual) Lymphocytes % (Manual) Monocytes % (Manual) Eosinophils % (Manual) Basophils % (Manual) Nucleated RBC % Seg Neutrophils # Seg Neutrophils # Man Lymphocytes # (Manual) Monocytes # (Manual) Eosinophils # (Manual) Basophils # (Manual) PT INR Fibrinogen dRVVT Confirm Interp Factor V Activity POC ABG pH POC ABG pCO2 POC ABG pO2 ABG pO2 ABG HCO3 ABG Base Excess ABG Hemoglobin Oxyhemoglobin Sodium Potassium Chloride Carbon Dioxide BUN 42 H Creatinine Glucose 175 H POC Glucose 163 H 163 H Lactic Acid Calcium Ionized Calcium Phosphorus 2.40 L D Magnesium Direct Bilirubin AST ALT Alkaline Phosphatase Lactate Dehydrogenase Troponin T C-Reactive Protein Total Protein Albumin Prealbumin Triglycerides Cholesterol LDL Cholesterol Direct HDL Cholesterol 25-OH Vitamin D Total PTH Intact Urine pH Urine WBC (Auto) Urine Creatinine Urine Total Protein Fluid Total Protein Vancomycin Trough Rheumatoid Factor Complement C4 Miscellaneous Test Crossmatch 01/07/17 01/08/17 01/08/17 23:40 05:00 05:00 WBC 27.4 H RBC 2.27 L Hgb 6.1 L Hct 20.4 L MCV MCH 27 L MCHC RDW 17.8 H Plt Count Lymph % (Auto) [place] % (Auto) Lymph # [place] # Baso # Seg Neutrophils % Seg Neuts % (Manual) Lymphocytes % (Manual) Monocytes % (Manual) Eosinophils % (Manual) Basophils % (Manual) Nucleated RBC % Seg Neutrophils # Seg Neutrophils # Man Lymphocytes # (Manual) Monocytes # (Manual) Eosinophils # (Manual) Basophils # (Manual) PT INR Fibrinogen dRVVT Confirm Interp Factor V Activity POC ABG pH POC ABG pCO2 POC ABG pO2 ABG pO2 ABG HCO3 ABG Base Excess ABG Hemoglobin Oxyhemoglobin Sodium Potassium Chloride Carbon Dioxide 16 L D BUN 62 H Creatinine 1.6 H D Glucose 103 H POC Glucose 135 H Lactic Acid Calcium Ionized Calcium Phosphorus Magnesium Direct Bilirubin AST ALT Alkaline Phosphatase Lactate Dehydrogenase Troponin T C-Reactive Protein Total Protein Albumin Prealbumin Triglycerides Cholesterol LDL Cholesterol Direct HDL Cholesterol 25-OH Vitamin D Total PTH Intact Urine pH Urine WBC (Auto) Urine Creatinine Urine Total Protein Fluid Total Protein Vancomycin Trough Rheumatoid Factor Complement C4 Miscellaneous Test Crossmatch 01/08/17 01/08/17 01/08/17 05:25 10:37 10:37 WBC RBC Hgb Hct MCV MCH MCHC RDW Plt Count Lymph % (Auto) [place] % (Auto) Lymph # [place] # Baso # Seg Neutrophils % Seg Neuts % (Manual) Lymphocytes % (Manual) Monocytes % (Manual) Eosinophils % (Manual) Basophils % (Manual) Nucleated RBC % Seg Neutrophils # Seg Neutrophils # Man Lymphocytes # (Manual) Monocytes # (Manual) Eosinophils # (Manual) Basophils # (Manual) PT INR Fibrinogen dRVVT Confirm Interp Factor V Activity POC ABG pH POC ABG pCO2 POC ABG pO2 ABG pO2 ABG HCO3 ABG Base Excess ABG Hemoglobin Oxyhemoglobin Sodium Potassium Chloride Carbon Dioxide BUN Creatinine Glucose POC Glucose 106 H Lactic Acid Calcium Ionized Calcium Phosphorus Magnesium Direct Bilirubin AST ALT Alkaline Phosphatase Lactate Dehydrogenase Troponin T C-Reactive Protein 24.40 H Total Protein Albumin Prealbumin Triglycerides Cholesterol LDL Cholesterol Direct HDL Cholesterol 25-OH Vitamin D Total PTH Intact Urine pH Urine WBC (Auto) Urine Creatinine Urine Total Protein Fluid Total Protein Vancomycin Trough Rheumatoid Factor Complement C4 Miscellaneous Test Crossmatch See Detail 01/08/17 01/08/17 01/08/17 10:37 11:33 15:15 WBC RBC Hgb Hct MCV MCH MCHC RDW Plt Count Lymph % (Auto) [place] % (Auto) Lymph # [place] # Baso # Seg Neutrophils % Seg Neuts % (Manual) Lymphocytes % (Manual) Monocytes % (Manual) Eosinophils % (Manual) Basophils % (Manual) Nucleated RBC % Seg Neutrophils # Seg Neutrophils # Man Lymphocytes # (Manual) Monocytes # (Manual) Eosinophils # (Manual) Basophils # (Manual) PT INR Fibrinogen dRVVT Confirm Interp Factor V Activity POC ABG pH POC ABG pCO2 POC ABG pO2 ABG pO2 ABG HCO3 ABG Base Excess ABG Hemoglobin Oxyhemoglobin Sodium Potassium Chloride Carbon Dioxide BUN Creatinine Glucose POC Glucose 157 H Lactic Acid 9.70 H* 9.10 H* Calcium Ionized Calcium Phosphorus Magnesium Direct Bilirubin AST ALT Alkaline Phosphatase Lactate Dehydrogenase Troponin T C-Reactive Protein Total Protein Albumin Prealbumin Triglycerides Cholesterol LDL Cholesterol Direct HDL Cholesterol 25-OH Vitamin D Total PTH Intact Urine pH Urine WBC (Auto) Urine Creatinine Urine Total Protein Fluid Total Protein Vancomycin Trough Rheumatoid Factor Complement C4 Miscellaneous Test Crossmatch 01/08/17 01/08/17 01/09/17 17:19 23:12 04:40 WBC RBC Hgb Hct MCV MCH MCHC RDW Plt Count Lymph % (Auto) [place] % (Auto) Lymph # [place] # Baso # Seg Neutrophils % Seg Neuts % (Manual) Lymphocytes % (Manual) Monocytes % (Manual) Eosinophils % (Manual) Basophils % (Manual) Nucleated RBC % Seg Neutrophils # Seg Neutrophils # Man Lymphocytes # (Manual) Monocytes # (Manual) Eosinophils # (Manual) Basophils # (Manual) PT INR Fibrinogen dRVVT Confirm Interp Factor V Activity POC ABG pH POC ABG pCO2 POC ABG pO2 ABG pO2 ABG HCO3 ABG Base Excess ABG Hemoglobin Oxyhemoglobin Sodium 147 H Potassium Chloride Carbon Dioxide BUN 82 H Creatinine 1.8 H Glucose 137 H POC Glucose 164 H 157 H Lactic Acid Calcium Ionized Calcium Phosphorus Magnesium Direct Bilirubin AST ALT Alkaline Phosphatase Lactate Dehydrogenase Troponin T C-Reactive Protein Total Protein Albumin Prealbumin Triglycerides Cholesterol LDL Cholesterol Direct HDL Cholesterol 25-OH Vitamin D Total PTH Intact Urine pH Urine WBC (Auto) Urine Creatinine Urine Total Protein Fluid Total Protein Vancomycin Trough Rheumatoid Factor Complement C4 Miscellaneous Test Crossmatch 01/09/17 01/09/17 01/09/17 05:42 08:22 10:57 WBC RBC Hgb Hct MCV MCH MCHC RDW Plt Count Lymph % (Auto) [place] % (Auto) Lymph # [place] # Baso # Seg Neutrophils % Seg Neuts % (Manual) Lymphocytes % (Manual) Monocytes % (Manual) Eosinophils % (Manual) Basophils % (Manual) Nucleated RBC % Seg Neutrophils # Seg Neutrophils # Man Lymphocytes # (Manual) Monocytes # (Manual) Eosinophils # (Manual) Basophils # (Manual) PT INR Fibrinogen dRVVT Confirm Interp Factor V Activity POC ABG pH POC ABG pCO2 POC ABG pO2 ABG pO2 ABG HCO3 ABG Base Excess ABG Hemoglobin Oxyhemoglobin Sodium Potassium Chloride Carbon Dioxide BUN Creatinine Glucose POC Glucose 156 H 122 H Lactic Acid 2.30 H* Calcium Ionized Calcium Phosphorus Magnesium Direct Bilirubin AST ALT Alkaline Phosphatase Lactate Dehydrogenase Troponin T C-Reactive Protein Total Protein Albumin Prealbumin Triglycerides Cholesterol LDL Cholesterol Direct HDL Cholesterol 25-OH Vitamin D Total PTH Intact Urine pH Urine WBC (Auto) Urine Creatinine Urine Total Protein Fluid Total Protein Vancomycin Trough Rheumatoid Factor Complement C4 Miscellaneous Test Crossmatch 01/09/17 01/09/17 01/09/17 13:30 17:14 18:45 WBC RBC Hgb Hct MCV MCH MCHC RDW Plt Count Lymph % (Auto) [place] % (Auto) Lymph # [place] # Baso # Seg Neutrophils % Seg Neuts % (Manual) Lymphocytes % (Manual) Monocytes % (Manual) Eosinophils % (Manual) Basophils % (Manual) Nucleated RBC % Seg Neutrophils # Seg Neutrophils # Man Lymphocytes # (Manual) Monocytes # (Manual) Eosinophils # (Manual) Basophils # (Manual) PT INR Fibrinogen dRVVT Confirm Interp Factor V Activity POC ABG pH POC ABG pCO2 POC ABG pO2 ABG pO2 ABG HCO3 ABG Base Excess ABG Hemoglobin Oxyhemoglobin Sodium Potassium Chloride Carbon Dioxide BUN Creatinine Glucose POC Glucose 127 H Lactic Acid Calcium Ionized Calcium Phosphorus Magnesium Direct Bilirubin AST ALT Alkaline Phosphatase Lactate Dehydrogenase Troponin T C-Reactive Protein 24.70 H Total Protein Albumin Prealbumin Triglycerides Cholesterol LDL Cholesterol Direct HDL Cholesterol 25-OH Vitamin D Total PTH Intact Urine pH Urine WBC (Auto) Urine Creatinine Urine Total Protein Fluid Total Protein Vancomycin Trough Rheumatoid Factor Complement C4 Miscellaneous Test Flexitest 1 H Crossmatch 01/10/17 01/10/17 01/10/17 01:21 04:00 04:00 WBC 18.1 H RBC 3.22 L Hgb 8.8 L Hct 27.0 L D MCV MCH 27 L MCHC RDW 17.0 H Plt Count Lymph % (Auto) [place] % (Auto) Lymph # [place] # Baso # Seg Neutrophils % Seg Neuts % (Manual) Lymphocytes % (Manual) Monocytes % (Manual) Eosinophils % (Manual) Basophils % (Manual) Nucleated RBC % Seg Neutrophils # Seg Neutrophils # Man Lymphocytes # (Manual) Monocytes # (Manual) Eosinophils # (Manual) Basophils # (Manual) PT INR Fibrinogen dRVVT Confirm Interp Factor V Activity POC ABG pH POC ABG pCO2 POC ABG pO2 ABG pO2 ABG HCO3 ABG Base Excess ABG Hemoglobin Oxyhemoglobin Sodium Potassium Chloride Carbon Dioxide BUN 59 H Creatinine 1.3 H Glucose 122 H POC Glucose 160 H Lactic Acid Calcium Ionized Calcium Phosphorus Magnesium Direct Bilirubin AST ALT Alkaline Phosphatase Lactate Dehydrogenase Troponin T C-Reactive Protein Total Protein Albumin Prealbumin Triglycerides Cholesterol LDL Cholesterol Direct HDL Cholesterol 25-OH Vitamin D Total PTH Intact Urine pH Urine WBC (Auto) Urine Creatinine Urine Total Protein Fluid Total Protein Vancomycin Trough Rheumatoid Factor Complement C4 Miscellaneous Test Crossmatch 01/10/17 01/10/17 01/10/17 05:36 12:14 17:55 WBC RBC Hgb Hct MCV MCH MCHC RDW Plt Count Lymph % (Auto) [place] % (Auto) Lymph # [place] # Baso # Seg Neutrophils % Seg Neuts % (Manual) Lymphocytes % (Manual) Monocytes % (Manual) Eosinophils % (Manual) Basophils % (Manual) Nucleated RBC % Seg Neutrophils # Seg Neutrophils # Man Lymphocytes # (Manual) Monocytes # (Manual) Eosinophils # (Manual) Basophils # (Manual) PT INR Fibrinogen dRVVT Confirm Interp Factor V Activity POC ABG pH POC ABG pCO2 POC ABG pO2 ABG pO2 ABG HCO3 ABG Base Excess ABG Hemoglobin Oxyhemoglobin Sodium Potassium Chloride Carbon Dioxide BUN Creatinine Glucose POC Glucose 163 H 120 H 144 H Lactic Acid Calcium Ionized Calcium Phosphorus Magnesium Direct Bilirubin AST ALT Alkaline Phosphatase Lactate Dehydrogenase Troponin T C-Reactive Protein Total Protein Albumin Prealbumin Triglycerides Cholesterol LDL Cholesterol Direct HDL Cholesterol 25-OH Vitamin D Total PTH Intact Urine pH Urine WBC (Auto) Urine Creatinine Urine Total Protein Fluid Total Protein Vancomycin Trough Rheumatoid Factor Complement C4 Miscellaneous Test Crossmatch 01/11/17 01/11/17 01/11/17 00:09 04:00 04:00 WBC 15.8 H RBC 3.04 L Hgb 8.2 L Hct 25.5 L MCV MCH 27 L MCHC RDW 17.3 H Plt Count Lymph % (Auto) [place] % (Auto) Lymph # [place] # Baso # Seg Neutrophils % Seg Neuts % (Manual) Lymphocytes % (Manual) Monocytes % (Manual) Eosinophils % (Manual) Basophils % (Manual) Nucleated RBC % Seg Neutrophils # Seg Neutrophils # Man Lymphocytes # (Manual) Monocytes # (Manual) Eosinophils # (Manual) Basophils # (Manual) PT INR Fibrinogen dRVVT Confirm Interp Factor V Activity POC ABG pH POC ABG pCO2 POC ABG pO2 ABG pO2 ABG HCO3 ABG Base Excess ABG Hemoglobin Oxyhemoglobin Sodium Potassium Chloride Carbon Dioxide BUN 78 H Creatinine 1.6 H Glucose 109 H POC Glucose 122 H Lactic Acid Calcium Ionized Calcium Phosphorus Magnesium Direct Bilirubin AST ALT Alkaline Phosphatase Lactate Dehydrogenase Troponin T C-Reactive Protein Total Protein Albumin Prealbumin Triglycerides Cholesterol LDL Cholesterol Direct HDL Cholesterol 25-OH Vitamin D Total PTH Intact Urine pH Urine WBC (Auto) Urine Creatinine Urine Total Protein Fluid Total Protein Vancomycin Trough Rheumatoid Factor Complement C4 Miscellaneous Test Crossmatch 01/11/17 01/11/17 01/11/17 12:46 18:23 23:42 WBC RBC Hgb Hct MCV MCH MCHC RDW Plt Count Lymph % (Auto) [place] % (Auto) Lymph # [place] # Baso # Seg Neutrophils % Seg Neuts % (Manual) Lymphocytes % (Manual) Monocytes % (Manual) Eosinophils % (Manual) Basophils % (Manual) Nucleated RBC % Seg Neutrophils # Seg Neutrophils # Man Lymphocytes # (Manual) Monocytes # (Manual) Eosinophils # (Manual) Basophils # (Manual) PT INR Fibrinogen dRVVT Confirm Interp Factor V Activity POC ABG pH POC ABG pCO2 POC ABG pO2 ABG pO2 ABG HCO3 ABG Base Excess ABG Hemoglobin Oxyhemoglobin Sodium Potassium Chloride Carbon Dioxide BUN Creatinine Glucose POC Glucose 148 H 125 H 124 H Lactic Acid Calcium Ionized Calcium Phosphorus Magnesium Direct Bilirubin AST ALT Alkaline Phosphatase Lactate Dehydrogenase Troponin T C-Reactive Protein Total Protein Albumin Prealbumin Triglycerides Cholesterol LDL Cholesterol Direct HDL Cholesterol 25-OH Vitamin D Total PTH Intact Urine pH Urine WBC (Auto) Urine Creatinine Urine Total Protein Fluid Total Protein Vancomycin Trough Rheumatoid Factor Complement C4 Miscellaneous Test Crossmatch 01/12/17 01/12/17 01/12/17 04:30 04:30 05:47 WBC 15.8 H RBC 3.31 L Hgb 8.9 L Hct 27.9 L MCV MCH 27 L MCHC RDW 17.4 H Plt Count Lymph % (Auto) [place] % (Auto) Lymph # [place] # Baso # Seg Neutrophils % Seg Neuts % (Manual) Lymphocytes % (Manual) Monocytes % (Manual) Eosinophils % (Manual) Basophils % (Manual) Nucleated RBC % Seg Neutrophils # Seg Neutrophils # Man Lymphocytes # (Manual) Monocytes # (Manual) Eosinophils # (Manual) Basophils # (Manual) PT INR Fibrinogen dRVVT Confirm Interp Factor V Activity POC ABG pH POC ABG pCO2 POC ABG pO2 ABG pO2 ABG HCO3 ABG Base Excess ABG Hemoglobin Oxyhemoglobin Sodium Potassium Chloride Carbon Dioxide BUN 57 H Creatinine Glucose 121 H POC Glucose 110 H Lactic Acid Calcium Ionized Calcium Phosphorus 2.10 L Magnesium Direct Bilirubin AST ALT Alkaline Phosphatase Lactate Dehydrogenase Troponin T C-Reactive Protein Total Protein Albumin Prealbumin Triglycerides Cholesterol LDL Cholesterol Direct HDL Cholesterol 25-OH Vitamin D Total PTH Intact Urine pH Urine WBC (Auto) Urine Creatinine Urine Total Protein Fluid Total Protein Vancomycin Trough Rheumatoid Factor Complement C4 Miscellaneous Test Crossmatch 01/12/17 01/12/17 01/12/17 11:35 17:45 23:14 WBC RBC Hgb Hct MCV MCH MCHC RDW Plt Count Lymph % (Auto) [place] % (Auto) Lymph # [place] # Baso # Seg Neutrophils % Seg Neuts % (Manual) Lymphocytes % (Manual) Monocytes % (Manual) Eosinophils % (Manual) Basophils % (Manual) Nucleated RBC % Seg Neutrophils # Seg Neutrophils # Man Lymphocytes # (Manual) Monocytes # (Manual) Eosinophils # (Manual) Basophils # (Manual) PT INR Fibrinogen dRVVT Confirm Interp Factor V Activity POC ABG pH POC ABG pCO2 POC ABG pO2 ABG pO2 ABG HCO3 ABG Base Excess ABG Hemoglobin Oxyhemoglobin Sodium Potassium Chloride Carbon Dioxide BUN Creatinine Glucose POC Glucose 146 H 117 H 123 H Lactic Acid Calcium Ionized Calcium Phosphorus Magnesium Direct Bilirubin AST ALT Alkaline Phosphatase Lactate Dehydrogenase Troponin T C-Reactive Protein Total Protein Albumin Prealbumin Triglycerides Cholesterol LDL Cholesterol Direct HDL Cholesterol 25-OH Vitamin D Total PTH Intact Urine pH Urine WBC (Auto) Urine Creatinine Urine Total Protein Fluid Total Protein Vancomycin Trough Rheumatoid Factor Complement C4 Miscellaneous Test Crossmatch 01/13/17 01/13/17 01/13/17 05:32 06:00 12:10 WBC RBC Hgb Hct MCV MCH MCHC RDW Plt Count Lymph % (Auto) [place] % (Auto) Lymph # [place] # Baso # Seg Neutrophils % Seg Neuts % (Manual) Lymphocytes % (Manual) Monocytes % (Manual) Eosinophils % (Manual) Basophils % (Manual) Nucleated RBC % Seg Neutrophils # Seg Neutrophils # Man Lymphocytes # (Manual) Monocytes # (Manual) Eosinophils # (Manual) Basophils # (Manual) PT INR Fibrinogen dRVVT Confirm Interp Factor V Activity POC ABG pH POC ABG pCO2 POC ABG pO2 ABG pO2 ABG HCO3 ABG Base Excess ABG Hemoglobin Oxyhemoglobin Sodium Potassium Chloride Carbon Dioxide BUN 80 H Creatinine 1.4 H Glucose 106 H POC Glucose 106 H Lactic Acid Calcium Ionized Calcium Phosphorus Magnesium Direct Bilirubin AST ALT Alkaline Phosphatase Lactate Dehydrogenase Troponin T C-Reactive Protein Total Protein Albumin Prealbumin Triglycerides Cholesterol LDL Cholesterol Direct HDL Cholesterol 25-OH Vitamin D Total PTH Intact Urine pH Urine WBC (Auto) Urine Creatinine Urine Total Protein Fluid Total Protein 3.0 L Vancomycin Trough Rheumatoid Factor Complement C4 Miscellaneous Test Crossmatch 01/13/17 01/13/17 01/13/17 12:17 15:50 17:30 WBC RBC Hgb Hct MCV MCH MCHC RDW Plt Count Lymph % (Auto) [place] % (Auto) Lymph # [place] # Baso # Seg Neutrophils % Seg Neuts % (Manual) Lymphocytes % (Manual) Monocytes % (Manual) Eosinophils % (Manual) Basophils % (Manual) Nucleated RBC % Seg Neutrophils # Seg Neutrophils # Man Lymphocytes # (Manual) Monocytes # (Manual) Eosinophils # (Manual) Basophils # (Manual) PT 15.4 H INR 1.16 H Fibrinogen dRVVT Confirm Interp Factor V Activity POC ABG pH POC ABG pCO2 POC ABG pO2 ABG pO2 ABG HCO3 ABG Base Excess ABG Hemoglobin Oxyhemoglobin Sodium Potassium Chloride Carbon Dioxide BUN Creatinine Glucose POC Glucose 168 H 110 H Lactic Acid Calcium Ionized Calcium Phosphorus Magnesium Direct Bilirubin AST ALT Alkaline Phosphatase Lactate Dehydrogenase Troponin T C-Reactive Protein Total Protein Albumin Prealbumin Triglycerides Cholesterol LDL Cholesterol Direct HDL Cholesterol 25-OH Vitamin D Total PTH Intact Urine pH Urine WBC (Auto) Urine Creatinine Urine Total Protein Fluid Total Protein Vancomycin Trough Rheumatoid Factor Complement C4 Miscellaneous Test Crossmatch 01/13/17 01/14/17 01/14/17 23:42 05:24 05:30 WBC RBC Hgb Hct MCV MCH MCHC RDW Plt Count Lymph % (Auto) [place] % (Auto) Lymph # [place] # Baso # Seg Neutrophils % Seg Neuts % (Manual) Lymphocytes % (Manual) Monocytes % (Manual) Eosinophils % (Manual) Basophils % (Manual) Nucleated RBC % Seg Neutrophils # Seg Neutrophils # Man Lymphocytes # (Manual) Monocytes # (Manual) Eosinophils # (Manual) Basophils # (Manual) PT INR Fibrinogen dRVVT Confirm Interp Factor V Activity POC ABG pH POC ABG pCO2 POC ABG pO2 ABG pO2 ABG HCO3 ABG Base Excess ABG Hemoglobin Oxyhemoglobin Sodium Potassium Chloride Carbon Dioxide BUN 58 H Creatinine Glucose 114 H POC Glucose 155 H 121 H Lactic Acid Calcium Ionized Calcium Phosphorus Magnesium Direct Bilirubin AST ALT Alkaline Phosphatase Lactate Dehydrogenase Troponin T C-Reactive Protein Total Protein Albumin Prealbumin Triglycerides Cholesterol LDL Cholesterol Direct HDL Cholesterol 25-OH Vitamin D Total PTH Intact Urine pH Urine WBC (Auto) Urine Creatinine Urine Total Protein Fluid Total Protein Vancomycin Trough Rheumatoid Factor Complement C4 Miscellaneous Test Crossmatch 01/14/17 01/14/17 01/15/17 12:48 17:36 00:15 WBC RBC Hgb Hct MCV MCH MCHC RDW Plt Count Lymph % (Auto) [place] % (Auto) Lymph # [place] # Baso # Seg Neutrophils % Seg Neuts % (Manual) Lymphocytes % (Manual) Monocytes % (Manual) Eosinophils % (Manual) Basophils % (Manual) Nucleated RBC % Seg Neutrophils # Seg Neutrophils # Man Lymphocytes # (Manual) Monocytes # (Manual) Eosinophils # (Manual) Basophils # (Manual) PT INR Fibrinogen dRVVT Confirm Interp Factor V Activity POC ABG pH POC ABG pCO2 POC ABG pO2 ABG pO2 ABG HCO3 ABG Base Excess ABG Hemoglobin Oxyhemoglobin Sodium Potassium Chloride Carbon Dioxide BUN Creatinine Glucose POC Glucose 130 H 135 H 132 H Lactic Acid Calcium Ionized Calcium Phosphorus Magnesium Direct Bilirubin AST ALT Alkaline Phosphatase Lactate Dehydrogenase Troponin T C-Reactive Protein Total Protein Albumin Prealbumin Triglycerides Cholesterol LDL Cholesterol Direct HDL Cholesterol 25-OH Vitamin D Total PTH Intact Urine pH Urine WBC (Auto) Urine Creatinine Urine Total Protein Fluid Total Protein Vancomycin Trough Rheumatoid Factor Complement C4 Miscellaneous Test Crossmatch 01/15/17 01/15/17 01/15/17 05:01 11:55 12:45 WBC 16.2 H RBC 3.00 L Hgb 8.1 L Hct 25.4 L MCV MCH 27 L MCHC RDW 17.6 H Plt Count Lymph % (Auto) 11.7 L [place] % (Auto) 7.8 H Lymph # [place] # 1.3 H Baso # Seg Neutrophils % 80.1 H Seg Neuts % (Manual) Lymphocytes % (Manual) Monocytes % (Manual) Eosinophils % (Manual) Basophils % (Manual) Nucleated RBC % Seg Neutrophils # 13.0 H Seg Neutrophils # Man Lymphocytes # (Manual) Monocytes # (Manual) Eosinophils # (Manual) Basophils # (Manual) PT INR Fibrinogen dRVVT Confirm Interp Factor V Activity POC ABG pH POC ABG pCO2 POC ABG pO2 ABG pO2 ABG HCO3 ABG Base Excess ABG Hemoglobin Oxyhemoglobin Sodium Potassium Chloride Carbon Dioxide BUN Creatinine Glucose POC Glucose 126 H 125 H Lactic Acid Calcium Ionized Calcium Phosphorus Magnesium Direct Bilirubin AST ALT Alkaline Phosphatase Lactate Dehydrogenase Troponin T C-Reactive Protein Total Protein Albumin Prealbumin Triglycerides Cholesterol LDL Cholesterol Direct HDL Cholesterol 25-OH Vitamin D Total PTH Intact Urine pH Urine WBC (Auto) Urine Creatinine Urine Total Protein Fluid Total Protein Vancomycin Trough Rheumatoid Factor Complement C4 Miscellaneous Test Crossmatch 01/15/17 01/15/17 01/15/17 12:45 17:31 23:39 WBC RBC Hgb Hct MCV MCH MCHC RDW Plt Count Lymph % (Auto) [place] % (Auto) Lymph # [place] # Baso # Seg Neutrophils % Seg Neuts % (Manual) Lymphocytes % (Manual) Monocytes % (Manual) Eosinophils % (Manual) Basophils % (Manual) Nucleated RBC % Seg Neutrophils # Seg Neutrophils # Man Lymphocytes # (Manual) Monocytes # (Manual) Eosinophils # (Manual) Basophils # (Manual) PT INR Fibrinogen dRVVT Confirm Interp Factor V Activity POC ABG pH POC ABG pCO2 POC ABG pO2 ABG pO2 ABG HCO3 ABG Base Excess ABG Hemoglobin Oxyhemoglobin Sodium 136 L Potassium Chloride Carbon Dioxide BUN 87 H Creatinine 1.7 H Glucose 108 H POC Glucose 129 H 112 H Lactic Acid Calcium Ionized Calcium Phosphorus Magnesium Direct Bilirubin AST ALT Alkaline Phosphatase Lactate Dehydrogenase Troponin T C-Reactive Protein Total Protein Albumin Prealbumin Triglycerides Cholesterol LDL Cholesterol Direct HDL Cholesterol 25-OH Vitamin D Total PTH Intact Urine pH Urine WBC (Auto) Urine Creatinine Urine Total Protein Fluid Total Protein Vancomycin Trough Rheumatoid Factor Complement C4 Miscellaneous Test Crossmatch 01/16/17 01/16/17 01/16/17 05:23 11:42 12:32 WBC RBC Hgb Hct MCV MCH MCHC RDW Plt Count Lymph % (Auto) [place] % (Auto) Lymph # [place] # Baso # Seg Neutrophils % Seg Neuts % (Manual) Lymphocytes % (Manual) Monocytes % (Manual) Eosinophils % (Manual) Basophils % (Manual) Nucleated RBC % Seg Neutrophils # Seg Neutrophils # Man Lymphocytes # (Manual) Monocytes # (Manual) Eosinophils # (Manual) Basophils # (Manual) PT INR Fibrinogen dRVVT Confirm Interp Factor V Activity POC ABG pH 7.499 H POC ABG pCO2 30.9 L POC ABG pO2 51 L ABG pO2 ABG HCO3 ABG Base Excess ABG Hemoglobin Oxyhemoglobin Sodium Potassium Chloride Carbon Dioxide BUN Creatinine Glucose POC Glucose 118 H 133 H Lactic Acid Calcium Ionized Calcium Phosphorus Magnesium Direct Bilirubin AST ALT Alkaline Phosphatase Lactate Dehydrogenase Troponin T C-Reactive Protein Total Protein Albumin Prealbumin Triglycerides Cholesterol LDL Cholesterol Direct HDL Cholesterol 25-OH Vitamin D Total PTH Intact Urine pH Urine WBC (Auto) Urine Creatinine Urine Total Protein Fluid Total Protein Vancomycin Trough Rheumatoid Factor Complement C4 Miscellaneous Test Crossmatch 01/16/17 01/16/17 01/16/17 17:52 23:57 Unknown WBC RBC Hgb Hct MCV MCH MCHC RDW Plt Count Lymph % (Auto) [place] % (Auto) Lymph # [place] # Baso # Seg Neutrophils % Seg Neuts % (Manual) Lymphocytes % (Manual) Monocytes % (Manual) Eosinophils % (Manual) Basophils % (Manual) Nucleated RBC % Seg Neutrophils # Seg Neutrophils # Man Lymphocytes # (Manual) Monocytes # (Manual) Eosinophils # (Manual) Basophils # (Manual) PT INR Fibrinogen dRVVT Confirm Interp Factor V Activity POC ABG pH POC ABG pCO2 POC ABG pO2 ABG pO2 ABG HCO3 ABG Base Excess ABG Hemoglobin Oxyhemoglobin Sodium 135 L Potassium Chloride Carbon Dioxide BUN 101 H Creatinine 1.8 H Glucose 117 H POC Glucose 130 H 143 H Lactic Acid Calcium Ionized Calcium Phosphorus 5.80 H Magnesium Direct Bilirubin AST ALT Alkaline Phosphatase Lactate Dehydrogenase Troponin T C-Reactive Protein Total Protein Albumin Prealbumin Triglycerides Cholesterol LDL Cholesterol Direct HDL Cholesterol 25-OH Vitamin D Total PTH Intact Urine pH Urine WBC (Auto) Urine Creatinine Urine Total Protein Fluid Total Protein Vancomycin Trough Rheumatoid Factor Complement C4 Miscellaneous Test Crossmatch 01/17/17 01/17/17 01/17/17 05:30 05:46 11:49 WBC RBC Hgb Hct MCV MCH MCHC RDW Plt Count Lymph % (Auto) [place] % (Auto) Lymph # [place] # Baso # Seg Neutrophils % Seg Neuts % (Manual) Lymphocytes % (Manual) Monocytes % (Manual) Eosinophils % (Manual) Basophils % (Manual) Nucleated RBC % Seg Neutrophils # Seg Neutrophils # Man Lymphocytes # (Manual) Monocytes # (Manual) Eosinophils # (Manual) Basophils # (Manual) PT INR Fibrinogen dRVVT Confirm Interp Factor V Activity POC ABG pH POC ABG pCO2 POC ABG pO2 ABG pO2 ABG HCO3 ABG Base Excess ABG Hemoglobin Oxyhemoglobin Sodium 134 L Potassium Chloride 95.8 L Carbon Dioxide BUN 66 H Creatinine 1.3 H Glucose 138 H POC Glucose 147 H 124 H Lactic Acid Calcium Ionized Calcium Phosphorus Magnesium Direct Bilirubin AST ALT Alkaline Phosphatase 254 H Lactate Dehydrogenase Troponin T C-Reactive Protein Total Protein Albumin 1.3 L Prealbumin Triglycerides Cholesterol LDL Cholesterol Direct HDL Cholesterol 25-OH Vitamin D Total PTH Intact Urine pH Urine WBC (Auto) Urine Creatinine Urine Total Protein Fluid Total Protein Vancomycin Trough Rheumatoid Factor Complement C4 Miscellaneous Test Crossmatch 01/17/17 01/17/17 01/18/17 17:30 23:41 05:15 WBC RBC Hgb Hct MCV MCH MCHC RDW Plt Count Lymph % (Auto) [place] % (Auto) Lymph # [place] # Baso # Seg Neutrophils % Seg Neuts % (Manual) Lymphocytes % (Manual) Monocytes % (Manual) Eosinophils % (Manual) Basophils % (Manual) Nucleated RBC % Seg Neutrophils # Seg Neutrophils # Man Lymphocytes # (Manual) Monocytes # (Manual) Eosinophils # (Manual) Basophils # (Manual) PT INR Fibrinogen dRVVT Confirm Interp Factor V Activity POC ABG pH POC ABG pCO2 POC ABG pO2 ABG pO2 ABG HCO3 ABG Base Excess ABG Hemoglobin Oxyhemoglobin Sodium Potassium Chloride Carbon Dioxide BUN 89 H Creatinine 1.7 H Glucose 118 H POC Glucose 137 H 119 H Lactic Acid Calcium Ionized Calcium Phosphorus Magnesium Direct Bilirubin AST ALT Alkaline Phosphatase Lactate Dehydrogenase Troponin T C-Reactive Protein Total Protein Albumin Prealbumin Triglycerides Cholesterol LDL Cholesterol Direct HDL Cholesterol 25-OH Vitamin D Total PTH Intact Urine pH Urine WBC (Auto) Urine Creatinine Urine Total Protein Fluid Total Protein Vancomycin Trough Rheumatoid Factor Complement C4 Miscellaneous Test Crossmatch 01/18/17 01/18/17 01/18/17 05:19 12:16 18:11 WBC RBC Hgb Hct MCV MCH MCHC RDW Plt Count Lymph % (Auto) [place] % (Auto) Lymph # [place] # Baso # Seg Neutrophils % Seg Neuts % (Manual) Lymphocytes % (Manual) Monocytes % (Manual) Eosinophils % (Manual) Basophils % (Manual) Nucleated RBC % Seg Neutrophils # Seg Neutrophils # Man Lymphocytes # (Manual) Monocytes # (Manual) Eosinophils # (Manual) Basophils # (Manual) PT INR Fibrinogen dRVVT Confirm Interp Factor V Activity POC ABG pH POC ABG pCO2 POC ABG pO2 ABG pO2 ABG HCO3 ABG Base Excess ABG Hemoglobin Oxyhemoglobin Sodium Potassium Chloride Carbon Dioxide BUN Creatinine Glucose POC Glucose 134 H 188 H 113 H Lactic Acid Calcium Ionized Calcium Phosphorus Magnesium Direct Bilirubin AST ALT Alkaline Phosphatase Lactate Dehydrogenase Troponin T C-Reactive Protein Total Protein Albumin Prealbumin Triglycerides Cholesterol LDL Cholesterol Direct HDL Cholesterol 25-OH Vitamin D Total PTH Intact Urine pH Urine WBC (Auto) Urine Creatinine Urine Total Protein Fluid Total Protein Vancomycin Trough Rheumatoid Factor Complement C4 Miscellaneous Test Crossmatch 01/19/17 01/19/17 01/19/17 00:00 05:30 05:36 WBC RBC Hgb Hct MCV MCH MCHC RDW Plt Count Lymph % (Auto) [place] % (Auto) Lymph # [place] # Baso # Seg Neutrophils % Seg Neuts % (Manual) Lymphocytes % (Manual) Monocytes % (Manual) Eosinophils % (Manual) Basophils % (Manual) Nucleated RBC % Seg Neutrophils # Seg Neutrophils # Man Lymphocytes # (Manual) Monocytes # (Manual) Eosinophils # (Manual) Basophils # (Manual) PT INR Fibrinogen dRVVT Confirm Interp Factor V Activity POC ABG pH POC ABG pCO2 POC ABG pO2 ABG pO2 ABG HCO3 ABG Base Excess ABG Hemoglobin Oxyhemoglobin Sodium Potassium Chloride Carbon Dioxide BUN 70 H Creatinine 1.5 H Glucose 121 H POC Glucose 137 H 155 H Lactic Acid Calcium Ionized Calcium Phosphorus 2.10 L D Magnesium Direct Bilirubin AST ALT Alkaline Phosphatase Lactate Dehydrogenase Troponin T C-Reactive Protein Total Protein Albumin Prealbumin Triglycerides Cholesterol LDL Cholesterol Direct HDL Cholesterol 25-OH Vitamin D Total PTH Intact Urine pH Urine WBC (Auto) Urine Creatinine Urine Total Protein Fluid Total Protein Vancomycin Trough Rheumatoid Factor Complement C4 Miscellaneous Test Crossmatch 01/19/17 01/19/17 01/19/17 11:59 15:32 17:57 WBC RBC Hgb Hct MCV MCH MCHC RDW Plt Count Lymph % (Auto) [place] % (Auto) Lymph # [place] # Baso # Seg Neutrophils % Seg Neuts % (Manual) Lymphocytes % (Manual) Monocytes % (Manual) Eosinophils % (Manual) Basophils % (Manual) Nucleated RBC % Seg Neutrophils # Seg Neutrophils # Man Lymphocytes # (Manual) Monocytes # (Manual) Eosinophils # (Manual) Basophils # (Manual) PT INR Fibrinogen dRVVT Confirm Interp Factor V Activity POC ABG pH POC ABG pCO2 33.1 L POC ABG pO2 76 L ABG pO2 ABG HCO3 ABG Base Excess ABG Hemoglobin Oxyhemoglobin Sodium Potassium Chloride Carbon Dioxide BUN Creatinine Glucose POC Glucose 156 H 129 H Lactic Acid Calcium Ionized Calcium Phosphorus Magnesium Direct Bilirubin AST ALT Alkaline Phosphatase Lactate Dehydrogenase Troponin T C-Reactive Protein Total Protein Albumin Prealbumin Triglycerides Cholesterol LDL Cholesterol Direct HDL Cholesterol 25-OH Vitamin D Total PTH Intact Urine pH Urine WBC (Auto) Urine Creatinine Urine Total Protein Fluid Total Protein Vancomycin Trough Rheumatoid Factor Complement C4 Miscellaneous Test Crossmatch 01/19/17 01/20/17 01/20/17 23:49 04:00 05:21 WBC RBC Hgb Hct MCV MCH MCHC RDW Plt Count Lymph % (Auto) [place] % (Auto) Lymph # [place] # Baso # Seg Neutrophils % Seg Neuts % (Manual) Lymphocytes % (Manual) Monocytes % (Manual) Eosinophils % (Manual) Basophils % (Manual) Nucleated RBC % Seg Neutrophils # Seg Neutrophils # Man Lymphocytes # (Manual) Monocytes # (Manual) Eosinophils # (Manual) Basophils # (Manual) PT INR Fibrinogen dRVVT Confirm Interp Factor V Activity POC ABG pH POC ABG pCO2 POC ABG pO2 ABG pO2 ABG HCO3 ABG Base Excess ABG Hemoglobin Oxyhemoglobin Sodium Potassium Chloride Carbon Dioxide BUN 96 H Creatinine 1.9 H Glucose 106 H POC Glucose 125 H 130 H Lactic Acid Calcium Ionized Calcium Phosphorus 2.40 L Magnesium Direct Bilirubin AST ALT Alkaline Phosphatase Lactate Dehydrogenase Troponin T C-Reactive Protein Total Protein Albumin Prealbumin Triglycerides Cholesterol LDL Cholesterol Direct HDL Cholesterol 25-OH Vitamin D Total PTH Intact Urine pH Urine WBC (Auto) Urine Creatinine Urine Total Protein Fluid Total Protein Vancomycin Trough Rheumatoid Factor Complement C4 Miscellaneous Test Crossmatch 01/20/17 01/20/17 01/20/17 11:58 12:17 17:26 WBC RBC Hgb Hct MCV MCH MCHC RDW Plt Count Lymph % (Auto) [place] % (Auto) Lymph # [place] # Baso # Seg Neutrophils % Seg Neuts % (Manual) Lymphocytes % (Manual) Monocytes % (Manual) Eosinophils % (Manual) Basophils % (Manual) Nucleated RBC % Seg Neutrophils # Seg Neutrophils # Man Lymphocytes # (Manual) Monocytes # (Manual) Eosinophils # (Manual) Basophils # (Manual) PT INR Fibrinogen dRVVT Confirm Interp Factor V Activity POC ABG pH POC ABG pCO2 POC ABG pO2 70 L ABG pO2 ABG HCO3 ABG Base Excess ABG Hemoglobin Oxyhemoglobin Sodium Potassium Chloride Carbon Dioxide BUN Creatinine Glucose POC Glucose 118 H 154 H Lactic Acid Calcium Ionized Calcium Phosphorus Magnesium Direct Bilirubin AST ALT Alkaline Phosphatase Lactate Dehydrogenase Troponin T C-Reactive Protein Total Protein Albumin Prealbumin Triglycerides Cholesterol LDL Cholesterol Direct HDL Cholesterol 25-OH Vitamin D Total PTH Intact Urine pH Urine WBC (Auto) Urine Creatinine Urine Total Protein Fluid Total Protein Vancomycin Trough Rheumatoid Factor Complement C4 Miscellaneous Test Crossmatch 01/21/17 01/21/17 01/21/17 04:00 04:56 11:46 WBC RBC Hgb Hct MCV MCH MCHC RDW Plt Count Lymph % (Auto) [place] % (Auto) Lymph # [place] # Baso # Seg Neutrophils % Seg Neuts % (Manual) Lymphocytes % (Manual) Monocytes % (Manual) Eosinophils % (Manual) Basophils % (Manual) Nucleated RBC % Seg Neutrophils # Seg Neutrophils # Man Lymphocytes # (Manual) Monocytes # (Manual) Eosinophils # (Manual) Basophils # (Manual) PT INR Fibrinogen dRVVT Confirm Interp Factor V Activity POC ABG pH POC ABG pCO2 POC ABG pO2 ABG pO2 ABG HCO3 ABG Base Excess ABG Hemoglobin Oxyhemoglobin Sodium Potassium 3.5 L Chloride 97.4 L Carbon Dioxide BUN 66 H Creatinine 1.4 H Glucose POC Glucose 116 H 106 H Lactic Acid Calcium Ionized Calcium Phosphorus 2.10 L Magnesium Direct Bilirubin AST ALT Alkaline Phosphatase Lactate Dehydrogenase Troponin T C-Reactive Protein Total Protein Albumin Prealbumin Triglycerides Cholesterol LDL Cholesterol Direct HDL Cholesterol 25-OH Vitamin D Total PTH Intact Urine pH Urine WBC (Auto) Urine Creatinine Urine Total Protein Fluid Total Protein Vancomycin Trough Rheumatoid Factor Complement C4 Miscellaneous Test Crossmatch 01/21/17 01/21/17 01/22/17 17:25 23:49 05:35 WBC RBC Hgb Hct MCV MCH MCHC RDW Plt Count Lymph % (Auto) [place] % (Auto) Lymph # [place] # Baso # Seg Neutrophils % Seg Neuts % (Manual) Lymphocytes % (Manual) Monocytes % (Manual) Eosinophils % (Manual) Basophils % (Manual) Nucleated RBC % Seg Neutrophils # Seg Neutrophils # Man Lymphocytes # (Manual) Monocytes # (Manual) Eosinophils # (Manual) Basophils # (Manual) PT INR Fibrinogen dRVVT Confirm Interp Factor V Activity POC ABG pH POC ABG pCO2 POC ABG pO2 ABG pO2 ABG HCO3 ABG Base Excess ABG Hemoglobin Oxyhemoglobin Sodium Potassium Chloride Carbon Dioxide BUN Creatinine Glucose POC Glucose 106 H 133 H 107 H Lactic Acid Calcium Ionized Calcium Phosphorus Magnesium Direct Bilirubin AST ALT Alkaline Phosphatase Lactate Dehydrogenase Troponin T C-Reactive Protein Total Protein Albumin Prealbumin Triglycerides Cholesterol LDL Cholesterol Direct HDL Cholesterol 25-OH Vitamin D Total PTH Intact Urine pH Urine WBC (Auto) Urine Creatinine Urine Total Protein Fluid Total Protein Vancomycin Trough Rheumatoid Factor Complement C4 Miscellaneous Test Crossmatch 01/22/17 01/22/17 01/22/17 07:20 07:20 11:31 WBC RBC 2.75 L Hgb 7.5 L Hct 22.7 L MCV MCH 27 L MCHC RDW 17.5 H Plt Count Lymph % (Auto) [place] % (Auto) Lymph # [place] # Baso # Seg Neutrophils % Seg Neuts % (Manual) Lymphocytes % (Manual) Monocytes % (Manual) Eosinophils % (Manual) Basophils % (Manual) Nucleated RBC % Seg Neutrophils # Seg Neutrophils # Man Lymphocytes # (Manual) Monocytes # (Manual) Eosinophils # (Manual) Basophils # (Manual) PT INR Fibrinogen dRVVT Confirm Interp Factor V Activity POC ABG pH POC ABG pCO2 POC ABG pO2 ABG pO2 ABG HCO3 ABG Base Excess ABG Hemoglobin Oxyhemoglobin Sodium Potassium 3.3 L Chloride Carbon Dioxide BUN 42 H Creatinine Glucose 105 H POC Glucose 124 H Lactic Acid Calcium Ionized Calcium Phosphorus 1.70 L Magnesium Direct Bilirubin AST ALT Alkaline Phosphatase Lactate Dehydrogenase Troponin T C-Reactive Protein Total Protein Albumin Prealbumin Triglycerides Cholesterol LDL Cholesterol Direct HDL Cholesterol 25-OH Vitamin D Total PTH Intact Urine pH Urine WBC (Auto) Urine Creatinine Urine Total Protein Fluid Total Protein Vancomycin Trough Rheumatoid Factor Complement C4 Miscellaneous Test Crossmatch 01/22/17 01/22/17 01/23/17 17:16 23:35 05:35 WBC RBC Hgb Hct MCV MCH MCHC RDW Plt Count Lymph % (Auto) [place] % (Auto) Lymph # [place] # Baso # Seg Neutrophils % Seg Neuts % (Manual) Lymphocytes % (Manual) Monocytes % (Manual) Eosinophils % (Manual) Basophils % (Manual) Nucleated RBC % Seg Neutrophils # Seg Neutrophils # Man Lymphocytes # (Manual) Monocytes # (Manual) Eosinophils # (Manual) Basophils # (Manual) PT INR Fibrinogen dRVVT Confirm Interp Factor V Activity POC ABG pH POC ABG pCO2 POC ABG pO2 ABG pO2 ABG HCO3 ABG Base Excess ABG Hemoglobin Oxyhemoglobin Sodium Potassium Chloride Carbon Dioxide BUN Creatinine Glucose POC Glucose 135 H 120 H 111 H Lactic Acid Calcium Ionized Calcium Phosphorus Magnesium Direct Bilirubin AST ALT Alkaline Phosphatase Lactate Dehydrogenase Troponin T C-Reactive Protein Total Protein Albumin Prealbumin Triglycerides Cholesterol LDL Cholesterol Direct HDL Cholesterol 25-OH Vitamin D Total PTH Intact Urine pH Urine WBC (Auto) Urine Creatinine Urine Total Protein Fluid Total Protein Vancomycin Trough Rheumatoid Factor Complement C4 Miscellaneous Test Crossmatch 01/23/17 01/23/17 01/23/17 06:10 17:27 23:44 WBC RBC Hgb Hct MCV MCH MCHC RDW Plt Count Lymph % (Auto) [place] % (Auto) Lymph # [place] # Baso # Seg Neutrophils % Seg Neuts % (Manual) Lymphocytes % (Manual) Monocytes % (Manual) Eosinophils % (Manual) Basophils % (Manual) Nucleated RBC % Seg Neutrophils # Seg Neutrophils # Man Lymphocytes # (Manual) Monocytes # (Manual) Eosinophils # (Manual) Basophils # (Manual) PT INR Fibrinogen dRVVT Confirm Interp Factor V Activity POC ABG pH POC ABG pCO2 POC ABG pO2 ABG pO2 ABG HCO3 ABG Base Excess ABG Hemoglobin Oxyhemoglobin Sodium Potassium 3.3 L Chloride Carbon Dioxide BUN 66 H Creatinine 1.3 H Glucose 109 H POC Glucose 120 H 115 H Lactic Acid Calcium Ionized Calcium Phosphorus 2.20 L D Magnesium Direct Bilirubin AST ALT Alkaline Phosphatase Lactate Dehydrogenase Troponin T C-Reactive Protein Total Protein Albumin Prealbumin Triglycerides Cholesterol LDL Cholesterol Direct HDL Cholesterol 25-OH Vitamin D Total PTH Intact Urine pH Urine WBC (Auto) Urine Creatinine Urine Total Protein Fluid Total Protein Vancomycin Trough Rheumatoid Factor Complement C4 Miscellaneous Test Crossmatch 01/24/17 01/24/17 01/24/17 05:19 05:50 12:19 WBC RBC Hgb Hct MCV MCH MCHC RDW Plt Count Lymph % (Auto) [place] % (Auto) Lymph # [place] # Baso # Seg Neutrophils % Seg Neuts % (Manual) Lymphocytes % (Manual) Monocytes % (Manual) Eosinophils % (Manual) Basophils % (Manual) Nucleated RBC % Seg Neutrophils # Seg Neutrophils # Man Lymphocytes # (Manual) Monocytes # (Manual) Eosinophils # (Manual) Basophils # (Manual) PT INR Fibrinogen dRVVT Confirm Interp Factor V Activity POC ABG pH POC ABG pCO2 POC ABG pO2 ABG pO2 ABG HCO3 ABG Base Excess ABG Hemoglobin Oxyhemoglobin Sodium Potassium Chloride Carbon Dioxide BUN 47 H Creatinine Glucose 117 H POC Glucose 126 H 119 H Lactic Acid Calcium Ionized Calcium Phosphorus 2.30 L Magnesium 1.60 L Direct Bilirubin AST ALT Alkaline Phosphatase Lactate Dehydrogenase Troponin T C-Reactive Protein Total Protein Albumin Prealbumin Triglycerides Cholesterol LDL Cholesterol Direct HDL Cholesterol 25-OH Vitamin D Total PTH Intact Urine pH Urine WBC (Auto) Urine Creatinine Urine Total Protein Fluid Total Protein Vancomycin Trough Rheumatoid Factor Complement C4 Miscellaneous Test Crossmatch 01/24/17 01/25/17 01/25/17 17:08 00:37 04:00 WBC RBC Hgb Hct MCV MCH MCHC RDW Plt Count Lymph % (Auto) [place] % (Auto) Lymph # [place] # Baso # Seg Neutrophils % Seg Neuts % (Manual) Lymphocytes % (Manual) Monocytes % (Manual) Eosinophils % (Manual) Basophils % (Manual) Nucleated RBC % Seg Neutrophils # Seg Neutrophils # Man Lymphocytes # (Manual) Monocytes # (Manual) Eosinophils # (Manual) Basophils # (Manual) PT INR Fibrinogen dRVVT Confirm Interp Factor V Activity POC ABG pH POC ABG pCO2 POC ABG pO2 ABG pO2 ABG HCO3 ABG Base Excess ABG Hemoglobin Oxyhemoglobin Sodium Potassium Chloride Carbon Dioxide BUN 72 H Creatinine 1.3 H Glucose POC Glucose 127 H 110 H Lactic Acid Calcium Ionized Calcium Phosphorus Magnesium Direct Bilirubin AST ALT Alkaline Phosphatase Lactate Dehydrogenase Troponin T C-Reactive Protein Total Protein Albumin Prealbumin Triglycerides Cholesterol LDL Cholesterol Direct HDL Cholesterol 25-OH Vitamin D Total PTH Intact Urine pH Urine WBC (Auto) Urine Creatinine Urine Total Protein Fluid Total Protein Vancomycin Trough Rheumatoid Factor Complement C4 Miscellaneous Test Crossmatch 01/25/17 01/25/17 01/25/17 04:00 11:15 13:05 WBC RBC 2.49 L Hgb 6.7 L Hct 20.9 L MCV MCH 27 L MCHC RDW 18.8 H Plt Count Lymph % (Auto) [place] % (Auto) 10.1 H Lymph # [place] # 1.0 H Baso # Seg Neutrophils % Seg Neuts % (Manual) Lymphocytes % (Manual) Monocytes % (Manual) Eosinophils % (Manual) Basophils % (Manual) Nucleated RBC % Seg Neutrophils # Seg Neutrophils # Man Lymphocytes # (Manual) Monocytes # (Manual) Eosinophils # (Manual) Basophils # (Manual) PT INR Fibrinogen dRVVT Confirm Interp Factor V Activity POC ABG pH POC ABG pCO2 POC ABG pO2 ABG pO2 ABG HCO3 ABG Base Excess ABG Hemoglobin Oxyhemoglobin Sodium Potassium Chloride Carbon Dioxide BUN Creatinine Glucose POC Glucose 128 H Lactic Acid Calcium Ionized Calcium Phosphorus Magnesium Direct Bilirubin AST ALT Alkaline Phosphatase Lactate Dehydrogenase Troponin T C-Reactive Protein Total Protein Albumin Prealbumin Triglycerides Cholesterol LDL Cholesterol Direct HDL Cholesterol 25-OH Vitamin D Total PTH Intact Urine pH Urine WBC (Auto) Urine Creatinine Urine Total Protein Fluid Total Protein Vancomycin Trough Rheumatoid Factor Complement C4 Miscellaneous Test Crossmatch See Detail 01/25/17 01/25/17 01/26/17 18:02 23:07 01:20 WBC RBC Hgb Hct MCV MCH MCHC RDW Plt Count Lymph % (Auto) [place] % (Auto) Lymph # [place] # Baso # Seg Neutrophils % Seg Neuts % (Manual) Lymphocytes % (Manual) Monocytes % (Manual) Eosinophils % (Manual) Basophils % (Manual) Nucleated RBC % Seg Neutrophils # Seg Neutrophils # Man Lymphocytes # (Manual) Monocytes # (Manual) Eosinophils # (Manual) Basophils # (Manual) PT INR Fibrinogen dRVVT Confirm Interp Factor V Activity POC ABG pH POC ABG pCO2 POC ABG pO2 ABG pO2 ABG HCO3 ABG Base Excess ABG Hemoglobin Oxyhemoglobin Sodium Potassium Chloride Carbon Dioxide BUN Creatinine Glucose POC Glucose 120 H 123 H 112 H Lactic Acid Calcium Ionized Calcium Phosphorus Magnesium Direct Bilirubin AST ALT Alkaline Phosphatase Lactate Dehydrogenase Troponin T C-Reactive Protein Total Protein Albumin Prealbumin Triglycerides Cholesterol LDL Cholesterol Direct HDL Cholesterol 25-OH Vitamin D Total PTH Intact Urine pH Urine WBC (Auto) Urine Creatinine Urine Total Protein Fluid Total Protein Vancomycin Trough Rheumatoid Factor Complement C4 Miscellaneous Test Crossmatch 01/26/17 01/26/17 01/26/17 04:20 04:20 11:23 WBC 13.1 H RBC 3.28 L Hgb 9.0 L Hct 26.9 L D MCV MCH 27 L MCHC RDW 17.2 H Plt Count Lymph % (Auto) [place] % (Auto) 9.0 H Lymph # [place] # 1.2 H Baso # Seg Neutrophils % 73.1 H Seg Neuts % (Manual) Lymphocytes % (Manual) Monocytes % (Manual) Eosinophils % (Manual) Basophils % (Manual) Nucleated RBC % Seg Neutrophils # 9.6 H Seg Neutrophils # Man Lymphocytes # (Manual) Monocytes # (Manual) Eosinophils # (Manual) Basophils # (Manual) PT INR Fibrinogen dRVVT Confirm Interp Factor V Activity POC ABG pH POC ABG pCO2 POC ABG pO2 ABG pO2 ABG HCO3 ABG Base Excess ABG Hemoglobin Oxyhemoglobin Sodium Potassium Chloride Carbon Dioxide BUN 51 H Creatinine Glucose 117 H POC Glucose 125 H Lactic Acid Calcium Ionized Calcium Phosphorus Magnesium Direct Bilirubin AST ALT Alkaline Phosphatase Lactate Dehydrogenase Troponin T C-Reactive Protein Total Protein Albumin Prealbumin Triglycerides Cholesterol LDL Cholesterol Direct HDL Cholesterol 25-OH Vitamin D Total PTH Intact Urine pH Urine WBC (Auto) Urine Creatinine Urine Total Protein Fluid Total Protein Vancomycin Trough Rheumatoid Factor Complement C4 Miscellaneous Test Crossmatch 01/26/17 01/27/17 01/27/17 17:11 00:30 04:00 WBC RBC Hgb Hct MCV MCH MCHC RDW Plt Count Lymph % (Auto) [place] % (Auto) Lymph # [place] # Baso # Seg Neutrophils % Seg Neuts % (Manual) Lymphocytes % (Manual) Monocytes % (Manual) Eosinophils % (Manual) Basophils % (Manual) Nucleated RBC % Seg Neutrophils # Seg Neutrophils # Man Lymphocytes # (Manual) Monocytes # (Manual) Eosinophils # (Manual) Basophils # (Manual) PT INR Fibrinogen dRVVT Confirm Interp Factor V Activity POC ABG pH POC ABG pCO2 POC ABG pO2 ABG pO2 ABG HCO3 ABG Base Excess ABG Hemoglobin Oxyhemoglobin Sodium Potassium Chloride 97.7 L Carbon Dioxide 21 L BUN 79 H Creatinine 1.7 H D Glucose 112 H POC Glucose 133 H 135 H Lactic Acid Calcium Ionized Calcium Phosphorus 5.00 H D Magnesium Direct Bilirubin AST ALT Alkaline Phosphatase Lactate Dehydrogenase Troponin T C-Reactive Protein Total Protein Albumin Prealbumin Triglycerides Cholesterol LDL Cholesterol Direct HDL Cholesterol 25-OH Vitamin D Total PTH Intact Urine pH Urine WBC (Auto) Urine Creatinine Urine Total Protein Fluid Total Protein Vancomycin Trough Rheumatoid Factor Complement C4 Miscellaneous Test Crossmatch 01/27/17 01/27/17 01/27/17 05:12 12:18 17:25 WBC RBC Hgb Hct MCV MCH MCHC RDW Plt Count Lymph % (Auto) [place] % (Auto) Lymph # [place] # Baso # Seg Neutrophils % Seg Neuts % (Manual) Lymphocytes % (Manual) Monocytes % (Manual) Eosinophils % (Manual) Basophils % (Manual) Nucleated RBC % Seg Neutrophils # Seg Neutrophils # Man Lymphocytes # (Manual) Monocytes # (Manual) Eosinophils # (Manual) Basophils # (Manual) PT INR Fibrinogen dRVVT Confirm Interp Factor V Activity POC ABG pH POC ABG pCO2 POC ABG pO2 ABG pO2 ABG HCO3 ABG Base Excess ABG Hemoglobin Oxyhemoglobin Sodium Potassium Chloride Carbon Dioxide BUN Creatinine Glucose POC Glucose 116 H 153 H 152 H Lactic Acid Calcium Ionized Calcium Phosphorus Magnesium Direct Bilirubin AST ALT Alkaline Phosphatase Lactate Dehydrogenase Troponin T C-Reactive Protein Total Protein Albumin Prealbumin Triglycerides Cholesterol LDL Cholesterol Direct HDL Cholesterol 25-OH Vitamin D Total PTH Intact Urine pH Urine WBC (Auto) Urine Creatinine Urine Total Protein Fluid Total Protein Vancomycin Trough Rheumatoid Factor Complement C4 Miscellaneous Test Crossmatch 01/27/17 01/28/17 01/28/17 23:42 04:00 04:00 WBC 14.4 H RBC 2.82 L Hgb 7.4 L Hct 23.5 L MCV MCH 26 L MCHC RDW 17.6 H Plt Count Lymph % (Auto) 10.2 L [place] % (Auto) 11.0 H Lymph # [place] # 1.6 H Baso # Seg Neutrophils % 78.0 H Seg Neuts % (Manual) Lymphocytes % (Manual) Monocytes % (Manual) Eosinophils % (Manual) Basophils % (Manual) Nucleated RBC % Seg Neutrophils # 11.3 H Seg Neutrophils # Man Lymphocytes # (Manual) Monocytes # (Manual) Eosinophils # (Manual) Basophils # (Manual) PT INR Fibrinogen dRVVT Confirm Interp Factor V Activity POC ABG pH POC ABG pCO2 POC ABG pO2 ABG pO2 ABG HCO3 ABG Base Excess ABG Hemoglobin Oxyhemoglobin Sodium Potassium Chloride Carbon Dioxide BUN 55 H Creatinine 1.3 H Glucose 114 H POC Glucose 121 H Lactic Acid Calcium Ionized Calcium Phosphorus Magnesium Direct Bilirubin AST ALT Alkaline Phosphatase Lactate Dehydrogenase Troponin T C-Reactive Protein Total Protein Albumin 1.4 L Prealbumin Triglycerides Cholesterol LDL Cholesterol Direct HDL Cholesterol 25-OH Vitamin D Total PTH Intact Urine pH Urine WBC (Auto) Urine Creatinine Urine Total Protein Fluid Total Protein Vancomycin Trough Rheumatoid Factor Complement C4 Miscellaneous Test Crossmatch 01/28/17 01/28/17 01/29/17 04:59 12:30 00:02 WBC RBC Hgb Hct MCV MCH MCHC RDW Plt Count Lymph % (Auto) [place] % (Auto) Lymph # [place] # Baso # Seg Neutrophils % Seg Neuts % (Manual) Lymphocytes % (Manual) Monocytes % (Manual) Eosinophils % (Manual) Basophils % (Manual) Nucleated RBC % Seg Neutrophils # Seg Neutrophils # Man Lymphocytes # (Manual) Monocytes # (Manual) Eosinophils # (Manual) Basophils # (Manual) PT INR Fibrinogen dRVVT Confirm Interp Factor V Activity POC ABG pH POC ABG pCO2 POC ABG pO2 ABG pO2 ABG HCO3 ABG Base Excess ABG Hemoglobin Oxyhemoglobin Sodium Potassium Chloride Carbon Dioxide BUN Creatinine Glucose POC Glucose 126 H 119 H 138 H Lactic Acid Calcium Ionized Calcium Phosphorus Magnesium Direct Bilirubin AST ALT Alkaline Phosphatase Lactate Dehydrogenase Troponin T C-Reactive Protein Total Protein Albumin Prealbumin Triglycerides Cholesterol LDL Cholesterol Direct HDL Cholesterol 25-OH Vitamin D Total PTH Intact Urine pH Urine WBC (Auto) Urine Creatinine Urine Total Protein Fluid Total Protein Vancomycin Trough Rheumatoid Factor Complement C4 Miscellaneous Test Crossmatch 01/29/17 01/29/17 01/29/17 04:58 06:15 11:35 WBC RBC Hgb Hct MCV MCH MCHC RDW Plt Count Lymph % (Auto) [place] % (Auto) Lymph # [place] # Baso # Seg Neutrophils % Seg Neuts % (Manual) Lymphocytes % (Manual) Monocytes % (Manual) Eosinophils % (Manual) Basophils % (Manual) Nucleated RBC % Seg Neutrophils # Seg Neutrophils # Man Lymphocytes # (Manual) Monocytes # (Manual) Eosinophils # (Manual) Basophils # (Manual) PT INR Fibrinogen dRVVT Confirm Interp Factor V Activity POC ABG pH POC ABG pCO2 POC ABG pO2 ABG pO2 ABG HCO3 ABG Base Excess ABG Hemoglobin Oxyhemoglobin Sodium Potassium Chloride Carbon Dioxide BUN 85 H Creatinine 1.7 H Glucose 105 H POC Glucose 114 H 110 H Lactic Acid Calcium Ionized Calcium Phosphorus Magnesium 2.40 H Direct Bilirubin AST ALT Alkaline Phosphatase Lactate Dehydrogenase Troponin T C-Reactive Protein Total Protein Albumin Prealbumin Triglycerides Cholesterol LDL Cholesterol Direct HDL Cholesterol 25-OH Vitamin D Total PTH Intact Urine pH Urine WBC (Auto) Urine Creatinine Urine Total Protein Fluid Total Protein Vancomycin Trough Rheumatoid Factor Complement C4 Miscellaneous Test Crossmatch 01/29/17 01/29/17 01/30/17 18:24 23:41 05:12 WBC RBC Hgb Hct MCV MCH MCHC RDW Plt Count Lymph % (Auto) [place] % (Auto) Lymph # [place] # Baso # Seg Neutrophils % Seg Neuts % (Manual) Lymphocytes % (Manual) Monocytes % (Manual) Eosinophils % (Manual) Basophils % (Manual) Nucleated RBC % Seg Neutrophils # Seg Neutrophils # Man Lymphocytes # (Manual) Monocytes # (Manual) Eosinophils # (Manual) Basophils # (Manual) PT INR Fibrinogen dRVVT Confirm Interp Factor V Activity POC ABG pH POC ABG pCO2 POC ABG pO2 ABG pO2 ABG HCO3 ABG Base Excess ABG Hemoglobin Oxyhemoglobin Sodium Potassium Chloride Carbon Dioxide BUN Creatinine Glucose POC Glucose 109 H 134 H 109 H Lactic Acid Calcium Ionized Calcium Phosphorus Magnesium Direct Bilirubin AST ALT Alkaline Phosphatase Lactate Dehydrogenase Troponin T C-Reactive Protein Total Protein Albumin Prealbumin Triglycerides Cholesterol LDL Cholesterol Direct HDL Cholesterol 25-OH Vitamin D Total PTH Intact Urine pH Urine WBC (Auto) Urine Creatinine Urine Total Protein Fluid Total Protein Vancomycin Trough Rheumatoid Factor Complement C4 Miscellaneous Test Crossmatch 01/30/17 01/30/17 01/30/17 11:26 17:43 23:39 WBC RBC Hgb Hct MCV MCH MCHC RDW Plt Count Lymph % (Auto) [place] % (Auto) Lymph # [place] # Baso # Seg Neutrophils % Seg Neuts % (Manual) Lymphocytes % (Manual) Monocytes % (Manual) Eosinophils % (Manual) Basophils % (Manual) Nucleated RBC % Seg Neutrophils # Seg Neutrophils # Man Lymphocytes # (Manual) Monocytes # (Manual) Eosinophils # (Manual) Basophils # (Manual) PT INR Fibrinogen dRVVT Confirm Interp Factor V Activity POC ABG pH POC ABG pCO2 POC ABG pO2 ABG pO2 ABG HCO3 ABG Base Excess ABG Hemoglobin Oxyhemoglobin Sodium Potassium Chloride Carbon Dioxide BUN Creatinine Glucose POC Glucose 135 H 143 H 122 H Lactic Acid Calcium Ionized Calcium Phosphorus Magnesium Direct Bilirubin AST ALT Alkaline Phosphatase Lactate Dehydrogenase Troponin T C-Reactive Protein Total Protein Albumin Prealbumin Triglycerides Cholesterol LDL Cholesterol Direct HDL Cholesterol 25-OH Vitamin D Total PTH Intact Urine pH Urine WBC (Auto) Urine Creatinine Urine Total Protein Fluid Total Protein Vancomycin Trough Rheumatoid Factor Complement C4 Miscellaneous Test Crossmatch 01/31/17 01/31/17 01/31/17 04:00 05:40 11:12 WBC RBC Hgb Hct MCV MCH MCHC RDW Plt Count Lymph % (Auto) [place] % (Auto) Lymph # [place] # Baso # Seg Neutrophils % Seg Neuts % (Manual) Lymphocytes % (Manual) Monocytes % (Manual) Eosinophils % (Manual) Basophils % (Manual) Nucleated RBC % Seg Neutrophils # Seg Neutrophils # Man Lymphocytes # (Manual) Monocytes # (Manual) Eosinophils # (Manual) Basophils # (Manual) PT INR Fibrinogen dRVVT Confirm Interp Factor V Activity POC ABG pH POC ABG pCO2 POC ABG pO2 ABG pO2 ABG HCO3 ABG Base Excess ABG Hemoglobin Oxyhemoglobin Sodium Potassium Chloride Carbon Dioxide BUN 78 H Creatinine 1.5 H Glucose 108 H POC Glucose 123 H Lactic Acid Calcium Ionized Calcium Phosphorus Magnesium Direct Bilirubin AST ALT Alkaline Phosphatase Lactate Dehydrogenase Troponin T C-Reactive Protein 8.10 H Total Protein Albumin Prealbumin Triglycerides Cholesterol LDL Cholesterol Direct HDL Cholesterol 25-OH Vitamin D Total PTH Intact Urine pH Urine WBC (Auto) Urine Creatinine Urine Total Protein Fluid Total Protein Vancomycin Trough Rheumatoid Factor Complement C4 Miscellaneous Test Crossmatch 01/31/17 01/31/17 01/31/17 11:16 17:45 17:50 WBC RBC Hgb Hct MCV MCH MCHC RDW Plt Count Lymph % (Auto) [place] % (Auto) Lymph # [place] # Baso # Seg Neutrophils % Seg Neuts % (Manual) Lymphocytes % (Manual) Monocytes % (Manual) Eosinophils % (Manual) Basophils % (Manual) Nucleated RBC % Seg Neutrophils # Seg Neutrophils # Man Lymphocytes # (Manual) Monocytes # (Manual) Eosinophils # (Manual) Basophils # (Manual) PT INR Fibrinogen dRVVT Confirm Interp Factor V Activity POC ABG pH POC ABG pCO2 POC ABG pO2 ABG pO2 ABG HCO3 ABG Base Excess ABG Hemoglobin Oxyhemoglobin Sodium Potassium Chloride Carbon Dioxide BUN Creatinine Glucose POC Glucose 119 H 111 H Lactic Acid Calcium Ionized Calcium Phosphorus Magnesium Direct Bilirubin AST ALT Alkaline Phosphatase Lactate Dehydrogenase Troponin T C-Reactive Protein Total Protein Albumin Prealbumin Triglycerides Cholesterol LDL Cholesterol Direct HDL Cholesterol 25-OH Vitamin D Total PTH Intact 6.76 L Urine pH Urine WBC (Auto) Urine Creatinine Urine Total Protein Fluid Total Protein Vancomycin Trough Rheumatoid Factor Complement C4 Miscellaneous Test Crossmatch 01/31/17 02/01/17 02/01/17 23:19 05:42 09:24 WBC RBC Hgb Hct MCV MCH MCHC RDW Plt Count Lymph % (Auto) [place] % (Auto) Lymph # [place] # Baso # Seg Neutrophils % Seg Neuts % (Manual) Lymphocytes % (Manual) Monocytes % (Manual) Eosinophils % (Manual) Basophils % (Manual) Nucleated RBC % Seg Neutrophils # Seg Neutrophils # Man Lymphocytes # (Manual) Monocytes # (Manual) Eosinophils # (Manual) Basophils # (Manual) PT INR Fibrinogen dRVVT Confirm Interp Factor V Activity POC ABG pH POC ABG pCO2 POC ABG pO2 ABG pO2 ABG HCO3 ABG Base Excess ABG Hemoglobin Oxyhemoglobin Sodium Potassium Chloride Carbon Dioxide BUN Creatinine Glucose POC Glucose 118 H 122 H Lactic Acid Calcium Ionized Calcium Phosphorus Magnesium 2.60 H Direct Bilirubin AST ALT Alkaline Phosphatase Lactate Dehydrogenase Troponin T C-Reactive Protein Total Protein Albumin Prealbumin Triglycerides Cholesterol LDL Cholesterol Direct HDL Cholesterol 25-OH Vitamin D Total PTH Intact Urine pH Urine WBC (Auto) Urine Creatinine Urine Total Protein Fluid Total Protein Vancomycin Trough Rheumatoid Factor Complement C4 Miscellaneous Test Crossmatch 02/01/17 02/01/17 02/02/17 09:24 12:15 07:40 WBC RBC Hgb Hct MCV MCH MCHC RDW Plt Count Lymph % (Auto) [place] % (Auto) Lymph # [place] # Baso # Seg Neutrophils % Seg Neuts % (Manual) Lymphocytes % (Manual) Monocytes % (Manual) Eosinophils % (Manual) Basophils % (Manual) Nucleated RBC % Seg Neutrophils # Seg Neutrophils # Man Lymphocytes # (Manual) Monocytes # (Manual) Eosinophils # (Manual) Basophils # (Manual) PT INR Fibrinogen dRVVT Confirm Interp Factor V Activity POC ABG pH POC ABG pCO2 POC ABG pO2 ABG pO2 ABG HCO3 ABG Base Excess ABG Hemoglobin Oxyhemoglobin Sodium Potassium Chloride Carbon Dioxide BUN 102 H 72 H Creatinine 1.9 H 1.5 H Glucose 120 H POC Glucose 156 H Lactic Acid Calcium Ionized Calcium Phosphorus Magnesium Direct Bilirubin AST ALT Alkaline Phosphatase Lactate Dehydrogenase Troponin T C-Reactive Protein Total Protein Albumin Prealbumin Triglycerides Cholesterol LDL Cholesterol Direct HDL Cholesterol 25-OH Vitamin D Total PTH Intact Urine pH Urine WBC (Auto) Urine Creatinine Urine Total Protein Fluid Total Protein Vancomycin Trough Rheumatoid Factor Complement C4 Miscellaneous Test Crossmatch 02/02/17 02/02/17 02/03/17 10:16 12:11 00:08 WBC 12.0 H RBC 3.08 L Hgb 8.3 L Hct 25.6 L MCV MCH 27 L MCHC RDW 18.2 H Plt Count Lymph % (Auto) [place] % (Auto) Lymph # [place] # Baso # Seg Neutrophils % 78.4 H Seg Neuts % (Manual) Lymphocytes % (Manual) Monocytes % (Manual) Eosinophils % (Manual) Basophils % (Manual) Nucleated RBC % Seg Neutrophils # 9.4 H Seg Neutrophils # Man Lymphocytes # (Manual) Monocytes # (Manual) Eosinophils # (Manual) Basophils # (Manual) PT INR Fibrinogen dRVVT Confirm Interp Factor V Activity POC ABG pH POC ABG pCO2 POC ABG pO2 ABG pO2 ABG HCO3 ABG Base Excess ABG Hemoglobin Oxyhemoglobin Sodium Potassium Chloride Carbon Dioxide BUN Creatinine Glucose POC Glucose 110 H 120 H Lactic Acid Calcium Ionized Calcium Phosphorus Magnesium Direct Bilirubin AST ALT Alkaline Phosphatase Lactate Dehydrogenase Troponin T C-Reactive Protein Total Protein Albumin Prealbumin Triglycerides Cholesterol LDL Cholesterol Direct HDL Cholesterol 25-OH Vitamin D Total PTH Intact Urine pH Urine WBC (Auto) Urine Creatinine Urine Total Protein Fluid Total Protein Vancomycin Trough Rheumatoid Factor Complement C4 Miscellaneous Test Crossmatch 02/03/17 02/03/17 02/03/17 05:41 07:38 11:31 WBC RBC Hgb Hct MCV MCH MCHC RDW Plt Count Lymph % (Auto) [place] % (Auto) Lymph # [place] # Baso # Seg Neutrophils % Seg Neuts % (Manual) Lymphocytes % (Manual) Monocytes % (Manual) Eosinophils % (Manual) Basophils % (Manual) Nucleated RBC % Seg Neutrophils # Seg Neutrophils # Man Lymphocytes # (Manual) Monocytes # (Manual) Eosinophils # (Manual) Basophils # (Manual) PT INR Fibrinogen dRVVT Confirm Interp Factor V Activity POC ABG pH POC ABG pCO2 POC ABG pO2 ABG pO2 ABG HCO3 ABG Base Excess ABG Hemoglobin Oxyhemoglobin Sodium 134 L Potassium Chloride Carbon Dioxide 21 L BUN 91 H Creatinine 1.9 H Glucose 110 H POC Glucose 119 H 119 H Lactic Acid Calcium 10.3 H Ionized Calcium Phosphorus Magnesium Direct Bilirubin AST ALT Alkaline Phosphatase Lactate Dehydrogenase Troponin T C-Reactive Protein Total Protein Albumin Prealbumin Triglycerides Cholesterol LDL Cholesterol Direct HDL Cholesterol 25-OH Vitamin D Total PTH Intact Urine pH Urine WBC (Auto) Urine Creatinine Urine Total Protein Fluid Total Protein Vancomycin Trough Rheumatoid Factor Complement C4 Miscellaneous Test Crossmatch 02/03/17 02/04/17 02/04/17 17:13 04:00 05:18 WBC RBC Hgb Hct MCV MCH MCHC RDW Plt Count Lymph % (Auto) [place] % (Auto) Lymph # [place] # Baso # Seg Neutrophils % Seg Neuts % (Manual) Lymphocytes % (Manual) Monocytes % (Manual) Eosinophils % (Manual) Basophils % (Manual) Nucleated RBC % Seg Neutrophils # Seg Neutrophils # Man Lymphocytes # (Manual) Monocytes # (Manual) Eosinophils # (Manual) Basophils # (Manual) PT INR Fibrinogen dRVVT Confirm Interp Factor V Activity POC ABG pH POC ABG pCO2 POC ABG pO2 ABG pO2 ABG HCO3 ABG Base Excess ABG Hemoglobin Oxyhemoglobin Sodium 136 L Potassium Chloride Carbon Dioxide BUN 58 H Creatinine 1.3 H Glucose 103 H POC Glucose 133 H 132 H Lactic Acid Calcium Ionized Calcium Phosphorus 2.00 L D Magnesium 1.60 L Direct Bilirubin AST ALT Alkaline Phosphatase Lactate Dehydrogenase Troponin T C-Reactive Protein Total Protein Albumin Prealbumin Triglycerides Cholesterol LDL Cholesterol Direct HDL Cholesterol 25-OH Vitamin D Total PTH Intact Urine pH Urine WBC (Auto) Urine Creatinine Urine Total Protein Fluid Total Protein Vancomycin Trough Rheumatoid Factor Complement C4 Miscellaneous Test Crossmatch 02/05/17 02/05/17 02/05/17 00:01 04:00 06:42 WBC RBC Hgb Hct MCV MCH MCHC RDW Plt Count Lymph % (Auto) [place] % (Auto) Lymph # [place] # Baso # Seg Neutrophils % Seg Neuts % (Manual) Lymphocytes % (Manual) Monocytes % (Manual) Eosinophils % (Manual) Basophils % (Manual) Nucleated RBC % Seg Neutrophils # Seg Neutrophils # Man Lymphocytes # (Manual) Monocytes # (Manual) Eosinophils # (Manual) Basophils # (Manual) PT INR Fibrinogen dRVVT Confirm Interp Factor V Activity POC ABG pH POC ABG pCO2 POC ABG pO2 ABG pO2 ABG HCO3 ABG Base Excess ABG Hemoglobin Oxyhemoglobin Sodium Potassium Chloride Carbon Dioxide BUN 83 H Creatinine 1.8 H Glucose POC Glucose 119 H 110 H Lactic Acid Calcium 10.7 H Ionized Calcium Phosphorus Magnesium Direct Bilirubin AST ALT Alkaline Phosphatase Lactate Dehydrogenase Troponin T C-Reactive Protein Total Protein Albumin Prealbumin Triglycerides Cholesterol LDL Cholesterol Direct HDL Cholesterol 25-OH Vitamin D Total PTH Intact Urine pH Urine WBC (Auto) Urine Creatinine Urine Total Protein Fluid Total Protein Vancomycin Trough Rheumatoid Factor Complement C4 Miscellaneous Test Crossmatch 02/05/17 02/05/17 02/05/17 09:59 11:47 23:44 WBC RBC 2.69 L Hgb 7.2 L Hct 22.5 L MCV MCH 27 L MCHC RDW 18.6 H Plt Count Lymph % (Auto) [place] % (Auto) 9.2 H Lymph # [place] # 0.9 H Baso # Seg Neutrophils % Seg Neuts % (Manual) Lymphocytes % (Manual) Monocytes % (Manual) Eosinophils % (Manual) Basophils % (Manual) Nucleated RBC % Seg Neutrophils # Seg Neutrophils # Man Lymphocytes # (Manual) Monocytes # (Manual) Eosinophils # (Manual) Basophils # (Manual) PT INR Fibrinogen dRVVT Confirm Interp Factor V Activity POC ABG pH POC ABG pCO2 POC ABG pO2 ABG pO2 ABG HCO3 ABG Base Excess ABG Hemoglobin Oxyhemoglobin Sodium Potassium Chloride Carbon Dioxide BUN Creatinine Glucose POC Glucose 130 H 123 H Lactic Acid Calcium Ionized Calcium Phosphorus Magnesium Direct Bilirubin AST ALT Alkaline Phosphatase Lactate Dehydrogenase Troponin T C-Reactive Protein Total Protein Albumin Prealbumin Triglycerides Cholesterol LDL Cholesterol Direct HDL Cholesterol 25-OH Vitamin D Total PTH Intact Urine pH Urine WBC (Auto) Urine Creatinine Urine Total Protein Fluid Total Protein Vancomycin Trough Rheumatoid Factor Complement C4 Miscellaneous Test Crossmatch 02/06/17 02/06/17 02/06/17 04:45 05:58 12:01 WBC RBC Hgb Hct MCV MCH MCHC RDW Plt Count Lymph % (Auto) [place] % (Auto) Lymph # [place] # Baso # Seg Neutrophils % Seg Neuts % (Manual) Lymphocytes % (Manual) Monocytes % (Manual) Eosinophils % (Manual) Basophils % (Manual) Nucleated RBC % Seg Neutrophils # Seg Neutrophils # Man Lymphocytes # (Manual) Monocytes # (Manual) Eosinophils # (Manual) Basophils # (Manual) PT INR Fibrinogen dRVVT Confirm Interp Factor V Activity POC ABG pH POC ABG pCO2 POC ABG pO2 ABG pO2 ABG HCO3 ABG Base Excess ABG Hemoglobin Oxyhemoglobin Sodium Potassium Chloride Carbon Dioxide BUN 101 H Creatinine 2.0 H Glucose 102 H POC Glucose 115 H 132 H Lactic Acid Calcium 10.6 H Ionized Calcium Phosphorus Magnesium Direct Bilirubin AST ALT Alkaline Phosphatase 199 H Lactate Dehydrogenase Troponin T C-Reactive Protein Total Protein Albumin 1.4 L Prealbumin Triglycerides Cholesterol LDL Cholesterol Direct HDL Cholesterol 25-OH Vitamin D Total PTH Intact Urine pH Urine WBC (Auto) Urine Creatinine Urine Total Protein Fluid Total Protein Vancomycin Trough Rheumatoid Factor Complement C4 Miscellaneous Test Crossmatch 02/06/17 02/06/17 02/07/17 17:41 23:32 05:04 WBC RBC Hgb Hct MCV MCH MCHC RDW Plt Count Lymph % (Auto) [place] % (Auto) Lymph # [place] # Baso # Seg Neutrophils % Seg Neuts % (Manual) Lymphocytes % (Manual) Monocytes % (Manual) Eosinophils % (Manual) Basophils % (Manual) Nucleated RBC % Seg Neutrophils # Seg Neutrophils # Man Lymphocytes # (Manual) Monocytes # (Manual) Eosinophils # (Manual) Basophils # (Manual) PT INR Fibrinogen dRVVT Confirm Interp Factor V Activity POC ABG pH POC ABG pCO2 POC ABG pO2 ABG pO2 ABG HCO3 ABG Base Excess ABG Hemoglobin Oxyhemoglobin Sodium Potassium Chloride Carbon Dioxide BUN Creatinine Glucose POC Glucose 134 H 128 H 119 H Lactic Acid Calcium Ionized Calcium Phosphorus Magnesium Direct Bilirubin AST ALT Alkaline Phosphatase Lactate Dehydrogenase Troponin T C-Reactive Protein Total Protein Albumin Prealbumin Triglycerides Cholesterol LDL Cholesterol Direct HDL Cholesterol 25-OH Vitamin D Total PTH Intact Urine pH Urine WBC (Auto) Urine Creatinine Urine Total Protein Fluid Total Protein Vancomycin Trough Rheumatoid Factor Complement C4 Miscellaneous Test Crossmatch 02/07/17 02/07/17 02/07/17 06:30 11:20 17:13 WBC RBC Hgb Hct MCV MCH MCHC RDW Plt Count Lymph % (Auto) [place] % (Auto) Lymph # [place] # Baso # Seg Neutrophils % Seg Neuts % (Manual) Lymphocytes % (Manual) Monocytes % (Manual) Eosinophils % (Manual) Basophils % (Manual) Nucleated RBC % Seg Neutrophils # Seg Neutrophils # Man Lymphocytes # (Manual) Monocytes # (Manual) Eosinophils # (Manual) Basophils # (Manual) PT INR Fibrinogen dRVVT Confirm Interp Factor V Activity POC ABG pH POC ABG pCO2 POC ABG pO2 ABG pO2 ABG HCO3 ABG Base Excess ABG Hemoglobin Oxyhemoglobin Sodium Potassium 3.4 L Chloride Carbon Dioxide BUN 69 H Creatinine 1.5 H Glucose 105 H POC Glucose 117 H 110 H Lactic Acid Calcium Ionized Calcium Phosphorus Magnesium 1.50 L Direct Bilirubin AST ALT Alkaline Phosphatase Lactate Dehydrogenase Troponin T C-Reactive Protein Total Protein Albumin Prealbumin Triglycerides Cholesterol LDL Cholesterol Direct HDL Cholesterol 25-OH Vitamin D Total PTH Intact Urine pH Urine WBC (Auto) Urine Creatinine Urine Total Protein Fluid Total Protein Vancomycin Trough Rheumatoid Factor Complement C4 Miscellaneous Test Crossmatch 02/07/17 02/08/17 02/08/17 20:47 04:00 11:43 WBC RBC Hgb Hct MCV MCH MCHC RDW Plt Count Lymph % (Auto) [place] % (Auto) Lymph # [place] # Baso # Seg Neutrophils % Seg Neuts % (Manual) Lymphocytes % (Manual) Monocytes % (Manual) Eosinophils % (Manual) Basophils % (Manual) Nucleated RBC % Seg Neutrophils # Seg Neutrophils # Man Lymphocytes # (Manual) Monocytes # (Manual) Eosinophils # (Manual) Basophils # (Manual) PT INR Fibrinogen dRVVT Confirm Interp Factor V Activity POC ABG pH POC ABG pCO2 POC ABG pO2 ABG pO2 ABG HCO3 ABG Base Excess ABG Hemoglobin Oxyhemoglobin Sodium Potassium Chloride Carbon Dioxide BUN 86 H Creatinine 1.7 H Glucose POC Glucose 115 H 122 H Lactic Acid Calcium Ionized Calcium Phosphorus Magnesium 1.60 L Direct Bilirubin AST ALT Alkaline Phosphatase Lactate Dehydrogenase Troponin T C-Reactive Protein Total Protein Albumin Prealbumin Triglycerides Cholesterol LDL Cholesterol Direct HDL Cholesterol 25-OH Vitamin D Total PTH Intact Urine pH Urine WBC (Auto) Urine Creatinine Urine Total Protein Fluid Total Protein Vancomycin Trough Rheumatoid Factor Complement C4 Miscellaneous Test Crossmatch 02/08/17 02/09/17 02/09/17 17:36 05:44 11:30 WBC RBC Hgb Hct MCV MCH MCHC RDW Plt Count Lymph % (Auto) [place] % (Auto) Lymph # [place] # Baso # Seg Neutrophils % Seg Neuts % (Manual) Lymphocytes % (Manual) Monocytes % (Manual) Eosinophils % (Manual) Basophils % (Manual) Nucleated RBC % Seg Neutrophils # Seg Neutrophils # Man Lymphocytes # (Manual) Monocytes # (Manual) Eosinophils # (Manual) Basophils # (Manual) PT INR Fibrinogen dRVVT Confirm Interp Factor V Activity POC ABG pH POC ABG pCO2 POC ABG pO2 ABG pO2 ABG HCO3 ABG Base Excess ABG Hemoglobin Oxyhemoglobin Sodium Potassium Chloride Carbon Dioxide BUN Creatinine Glucose POC Glucose 125 H 117 H 120 H Lactic Acid Calcium Ionized Calcium Phosphorus Magnesium Direct Bilirubin AST ALT Alkaline Phosphatase Lactate Dehydrogenase Troponin T C-Reactive Protein Total Protein Albumin Prealbumin Triglycerides Cholesterol LDL Cholesterol Direct HDL Cholesterol 25-OH Vitamin D Total PTH Intact Urine pH Urine WBC (Auto) Urine Creatinine Urine Total Protein Fluid Total Protein Vancomycin Trough Rheumatoid Factor Complement C4 Miscellaneous Test Crossmatch 02/09/17 02/10/17 02/10/17 23:45 05:45 05:50 WBC RBC Hgb Hct MCV MCH MCHC RDW Plt Count Lymph % (Auto) [place] % (Auto) Lymph # [place] # Baso # Seg Neutrophils % Seg Neuts % (Manual) Lymphocytes % (Manual) Monocytes % (Manual) Eosinophils % (Manual) Basophils % (Manual) Nucleated RBC % Seg Neutrophils # Seg Neutrophils # Man Lymphocytes # (Manual) Monocytes # (Manual) Eosinophils # (Manual) Basophils # (Manual) PT INR Fibrinogen dRVVT Confirm Interp Factor V Activity POC ABG pH POC ABG pCO2 POC ABG pO2 ABG pO2 ABG HCO3 ABG Base Excess ABG Hemoglobin Oxyhemoglobin Sodium Potassium Chloride Carbon Dioxide BUN 85 H Creatinine 1.8 H Glucose 109 H POC Glucose 114 H 189 H Lactic Acid Calcium Ionized Calcium Phosphorus Magnesium 2.50 H Direct Bilirubin AST ALT Alkaline Phosphatase Lactate Dehydrogenase Troponin T C-Reactive Protein Total Protein Albumin Prealbumin Triglycerides Cholesterol LDL Cholesterol Direct HDL Cholesterol 25-OH Vitamin D Total PTH Intact Urine pH Urine WBC (Auto) Urine Creatinine Urine Total Protein Fluid Total Protein Vancomycin Trough Rheumatoid Factor Complement C4 Miscellaneous Test Crossmatch 02/10/17 02/10/17 02/10/17 05:51 11:55 17:42 WBC RBC Hgb Hct MCV MCH MCHC RDW Plt Count Lymph % (Auto) [place] % (Auto) Lymph # [place] # Baso # Seg Neutrophils % Seg Neuts % (Manual) Lymphocytes % (Manual) Monocytes % (Manual) Eosinophils % (Manual) Basophils % (Manual) Nucleated RBC % Seg Neutrophils # Seg Neutrophils # Man Lymphocytes # (Manual) Monocytes # (Manual) Eosinophils # (Manual) Basophils # (Manual) PT INR Fibrinogen dRVVT Confirm Interp Factor V Activity POC ABG pH POC ABG pCO2 POC ABG pO2 ABG pO2 ABG HCO3 ABG Base Excess ABG Hemoglobin Oxyhemoglobin Sodium Potassium Chloride Carbon Dioxide BUN Creatinine Glucose POC Glucose 106 H 146 H 132 H Lactic Acid Calcium Ionized Calcium Phosphorus Magnesium Direct Bilirubin AST ALT Alkaline Phosphatase Lactate Dehydrogenase Troponin T C-Reactive Protein Total Protein Albumin Prealbumin Triglycerides Cholesterol LDL Cholesterol Direct HDL Cholesterol 25-OH Vitamin D Total PTH Intact Urine pH Urine WBC (Auto) Urine Creatinine Urine Total Protein Fluid Total Protein Vancomycin Trough Rheumatoid Factor Complement C4 Miscellaneous Test Crossmatch 02/10/17 02/11/17 02/11/17 23:43 04:08 05:34 WBC RBC Hgb Hct MCV MCH MCHC RDW Plt Count Lymph % (Auto) [place] % (Auto) Lymph # [place] # Baso # Seg Neutrophils % Seg Neuts % (Manual) Lymphocytes % (Manual) Monocytes % (Manual) Eosinophils % (Manual) Basophils % (Manual) Nucleated RBC % Seg Neutrophils # Seg Neutrophils # Man Lymphocytes # (Manual) Monocytes # (Manual) Eosinophils # (Manual) Basophils # (Manual) PT INR Fibrinogen dRVVT Confirm Interp Factor V Activity POC ABG pH POC ABG pCO2 POC ABG pO2 ABG pO2 ABG HCO3 ABG Base Excess ABG Hemoglobin Oxyhemoglobin Sodium 136 L Potassium Chloride Carbon Dioxide BUN 65 H Creatinine 1.7 H Glucose 105 H POC Glucose 130 H 113 H Lactic Acid Calcium Ionized Calcium Phosphorus Magnesium Direct Bilirubin AST ALT Alkaline Phosphatase Lactate Dehydrogenase Troponin T C-Reactive Protein Total Protein Albumin Prealbumin Triglycerides Cholesterol LDL Cholesterol Direct HDL Cholesterol 25-OH Vitamin D Total PTH Intact Urine pH Urine WBC (Auto) Urine Creatinine Urine Total Protein Fluid Total Protein Vancomycin Trough Rheumatoid Factor Complement C4 Miscellaneous Test Crossmatch 02/11/17 02/11/17 02/12/17 11:56 23:18 06:19 WBC RBC Hgb Hct MCV MCH MCHC RDW Plt Count Lymph % (Auto) [place] % (Auto) Lymph # [place] # Baso # Seg Neutrophils % Seg Neuts % (Manual) Lymphocytes % (Manual) Monocytes % (Manual) Eosinophils % (Manual) Basophils % (Manual) Nucleated RBC % Seg Neutrophils # Seg Neutrophils # Man Lymphocytes # (Manual) Monocytes # (Manual) Eosinophils # (Manual) Basophils # (Manual) PT INR Fibrinogen dRVVT Confirm Interp Factor V Activity POC ABG pH POC ABG pCO2 POC ABG pO2 ABG pO2 ABG HCO3 ABG Base Excess ABG Hemoglobin Oxyhemoglobin Sodium 136 L Potassium Chloride 97.1 L Carbon Dioxide BUN 93 H Creatinine 2.4 H Glucose POC Glucose 126 H 119 H Lactic Acid Calcium 11.0 H Ionized Calcium Phosphorus Magnesium Direct Bilirubin AST ALT Alkaline Phosphatase Lactate Dehydrogenase Troponin T C-Reactive Protein Total Protein Albumin Prealbumin Triglycerides Cholesterol LDL Cholesterol Direct HDL Cholesterol 25-OH Vitamin D Total PTH Intact Urine pH Urine WBC (Auto) Urine Creatinine Urine Total Protein Fluid Total Protein Vancomycin Trough Rheumatoid Factor Complement C4 Miscellaneous Test Crossmatch 02/12/17 02/12/17 02/12/17 08:00 10:25 11:42 WBC 15.4 H RBC 2.63 L Hgb 6.9 L Hct 22.6 L MCV MCH 26 L MCHC RDW 20.5 H Plt Count Lymph % (Auto) [place] % (Auto) Lymph # [place] # Baso # Seg Neutrophils % Seg Neuts % (Manual) Lymphocytes % (Manual) Monocytes % (Manual) Eosinophils % (Manual) Basophils % (Manual) Nucleated RBC % Seg Neutrophils # Seg Neutrophils # Man Lymphocytes # (Manual) Monocytes # (Manual) Eosinophils # (Manual) Basophils # (Manual) PT INR Fibrinogen dRVVT Confirm Interp Factor V Activity POC ABG pH POC ABG pCO2 POC ABG pO2 ABG pO2 ABG HCO3 ABG Base Excess ABG Hemoglobin Oxyhemoglobin Sodium Potassium Chloride Carbon Dioxide BUN Creatinine Glucose POC Glucose 142 H Lactic Acid Calcium Ionized Calcium Phosphorus Magnesium Direct Bilirubin AST ALT Alkaline Phosphatase Lactate Dehydrogenase Troponin T C-Reactive Protein Total Protein Albumin Prealbumin Triglycerides Cholesterol LDL Cholesterol Direct HDL Cholesterol 25-OH Vitamin D Total PTH Intact Urine pH Urine WBC (Auto) Urine Creatinine Urine Total Protein Fluid Total Protein Vancomycin Trough Rheumatoid Factor Complement C4 Miscellaneous Test Crossmatch See Detail 02/12/17 02/13/17 02/13/17 18:04 00:04 05:00 WBC RBC Hgb Hct MCV MCH MCHC RDW Plt Count Lymph % (Auto) [place] % (Auto) Lymph # [place] # Baso # Seg Neutrophils % Seg Neuts % (Manual) Lymphocytes % (Manual) Monocytes % (Manual) Eosinophils % (Manual) Basophils % (Manual) Nucleated RBC % Seg Neutrophils # Seg Neutrophils # Man Lymphocytes # (Manual) Monocytes # (Manual) Eosinophils # (Manual) Basophils # (Manual) PT INR Fibrinogen dRVVT Confirm Interp Factor V Activity POC ABG pH POC ABG pCO2 POC ABG pO2 ABG pO2 ABG HCO3 ABG Base Excess ABG Hemoglobin Oxyhemoglobin Sodium 134 L Potassium Chloride 96.1 L Carbon Dioxide 20 L BUN 125 H Creatinine 3.0 H Glucose 111 H POC Glucose 135 H 109 H Lactic Acid Calcium 11.3 H Ionized Calcium Phosphorus Magnesium Direct Bilirubin AST ALT Alkaline Phosphatase Lactate Dehydrogenase Troponin T C-Reactive Protein Total Protein Albumin Prealbumin Triglycerides Cholesterol LDL Cholesterol Direct HDL Cholesterol 25-OH Vitamin D Total PTH Intact Urine pH Urine WBC (Auto) Urine Creatinine Urine Total Protein Fluid Total Protein Vancomycin Trough Rheumatoid Factor Complement C4 Miscellaneous Test Crossmatch 02/13/17 02/13/17 02/13/17 05:00 05:28 12:03 WBC 11.9 H RBC 2.92 L Hgb 7.8 L Hct 25.2 L MCV MCH 27 L MCHC RDW 19.3 H Plt Count Lymph % (Auto) [place] % (Auto) Lymph # [place] # Baso # Seg Neutrophils % Seg Neuts % (Manual) Lymphocytes % (Manual) Monocytes % (Manual) Eosinophils % (Manual) Basophils % (Manual) Nucleated RBC % Seg Neutrophils # Seg Neutrophils # Man Lymphocytes # (Manual) Monocytes # (Manual) Eosinophils # (Manual) Basophils # (Manual) PT INR Fibrinogen dRVVT Confirm Interp Factor V Activity POC ABG pH POC ABG pCO2 POC ABG pO2 ABG pO2 ABG HCO3 ABG Base Excess ABG Hemoglobin Oxyhemoglobin Sodium Potassium Chloride Carbon Dioxide BUN Creatinine Glucose POC Glucose 124 H 160 H Lactic Acid Calcium Ionized Calcium Phosphorus Magnesium Direct Bilirubin AST ALT Alkaline Phosphatase Lactate Dehydrogenase Troponin T C-Reactive Protein Total Protein Albumin Prealbumin Triglycerides Cholesterol LDL Cholesterol Direct HDL Cholesterol 25-OH Vitamin D Total PTH Intact Urine pH Urine WBC (Auto) Urine Creatinine Urine Total Protein Fluid Total Protein Vancomycin Trough Rheumatoid Factor Complement C4 Miscellaneous Test Crossmatch 02/13/17 02/14/17 02/14/17 18:09 06:16 08:08 WBC 15.2 H RBC 2.97 L Hgb 8.1 L Hct 26.3 L MCV MCH MCHC RDW 19.3 H Plt Count Lymph % (Auto) [place] % (Auto) Lymph # [place] # Baso # Seg Neutrophils % Seg Neuts % (Manual) Lymphocytes % (Manual) Monocytes % (Manual) Eosinophils % (Manual) Basophils % (Manual) Nucleated RBC % Seg Neutrophils # Seg Neutrophils # Man Lymphocytes # (Manual) Monocytes # (Manual) Eosinophils # (Manual) Basophils # (Manual) PT INR Fibrinogen dRVVT Confirm Interp Factor V Activity POC ABG pH POC ABG pCO2 POC ABG pO2 ABG pO2 ABG HCO3 ABG Base Excess ABG Hemoglobin Oxyhemoglobin Sodium Potassium Chloride Carbon Dioxide BUN Creatinine Glucose POC Glucose 110 H 112 H Lactic Acid Calcium Ionized Calcium Phosphorus Magnesium Direct Bilirubin AST ALT Alkaline Phosphatase Lactate Dehydrogenase Troponin T C-Reactive Protein Total Protein Albumin Prealbumin Triglycerides Cholesterol LDL Cholesterol Direct HDL Cholesterol 25-OH Vitamin D Total PTH Intact Urine pH Urine WBC (Auto) Urine Creatinine Urine Total Protein Fluid Total Protein Vancomycin Trough Rheumatoid Factor Complement C4 Miscellaneous Test Crossmatch 02/14/17 02/14/17 02/15/17 08:08 17:41 04:15 WBC RBC Hgb Hct MCV MCH MCHC RDW Plt Count Lymph % (Auto) [place] % (Auto) Lymph # [place] # Baso # Seg Neutrophils % Seg Neuts % (Manual) Lymphocytes % (Manual) Monocytes % (Manual) Eosinophils % (Manual) Basophils % (Manual) Nucleated RBC % Seg Neutrophils # Seg Neutrophils # Man Lymphocytes # (Manual) Monocytes # (Manual) Eosinophils # (Manual) Basophils # (Manual) PT INR Fibrinogen dRVVT Confirm Interp Factor V Activity POC ABG pH POC ABG pCO2 POC ABG pO2 ABG pO2 ABG HCO3 ABG Base Excess ABG Hemoglobin Oxyhemoglobin Sodium Potassium Chloride Carbon Dioxide 18 L 21 L BUN 79 H 113 H Creatinine 2.1 H 2.8 H Glucose POC Glucose 118 H Lactic Acid Calcium 10.7 H Ionized Calcium Phosphorus 1.70 L D Magnesium 1.60 L Direct Bilirubin AST ALT Alkaline Phosphatase Lactate Dehydrogenase Troponin T C-Reactive Protein Total Protein Albumin Prealbumin Triglycerides Cholesterol LDL Cholesterol Direct HDL Cholesterol 25-OH Vitamin D Total PTH Intact Urine pH Urine WBC (Auto) Urine Creatinine Urine Total Protein Fluid Total Protein Vancomycin Trough Rheumatoid Factor Complement C4 Miscellaneous Test Crossmatch 02/15/17 02/15/17 02/15/17 06:06 11:31 17:52 WBC RBC Hgb Hct MCV MCH MCHC RDW Plt Count Lymph % (Auto) [place] % (Auto) Lymph # [place] # Baso # Seg Neutrophils % Seg Neuts % (Manual) Lymphocytes % (Manual) Monocytes % (Manual) Eosinophils % (Manual) Basophils % (Manual) Nucleated RBC % Seg Neutrophils # Seg Neutrophils # Man Lymphocytes # (Manual) Monocytes # (Manual) Eosinophils # (Manual) Basophils # (Manual) PT INR Fibrinogen dRVVT Confirm Interp Factor V Activity POC ABG pH POC ABG pCO2 POC ABG pO2 ABG pO2 ABG HCO3 ABG Base Excess ABG Hemoglobin Oxyhemoglobin Sodium Potassium Chloride Carbon Dioxide BUN Creatinine Glucose POC Glucose 115 H 129 H 201 H Lactic Acid Calcium Ionized Calcium Phosphorus Magnesium Direct Bilirubin AST ALT Alkaline Phosphatase Lactate Dehydrogenase Troponin T C-Reactive Protein Total Protein Albumin Prealbumin Triglycerides Cholesterol LDL Cholesterol Direct HDL Cholesterol 25-OH Vitamin D Total PTH Intact Urine pH Urine WBC (Auto) Urine Creatinine Urine Total Protein Fluid Total Protein Vancomycin Trough Rheumatoid Factor Complement C4 Miscellaneous Test Crossmatch 02/15/17 02/15/17 02/15/17 19:08 19:08 19:08 WBC RBC Hgb Hct MCV MCH MCHC RDW Plt Count Lymph % (Auto) [place] % (Auto) Lymph # [place] # Baso # Seg Neutrophils % Seg Neuts % (Manual) Lymphocytes % (Manual) Monocytes % (Manual) Eosinophils % (Manual) Basophils % (Manual) Nucleated RBC % Seg Neutrophils # Seg Neutrophils # Man Lymphocytes # (Manual) Monocytes # (Manual) Eosinophils # (Manual) Basophils # (Manual) PT INR Fibrinogen dRVVT Confirm Interp Factor V Activity POC ABG pH POC ABG pCO2 POC ABG pO2 ABG pO2 ABG HCO3 ABG Base Excess ABG Hemoglobin Oxyhemoglobin Sodium Potassium Chloride Carbon Dioxide BUN Creatinine Glucose POC Glucose Lactic Acid Calcium Ionized Calcium 6.0 H Phosphorus Magnesium Direct Bilirubin AST ALT Alkaline Phosphatase Lactate Dehydrogenase Troponin T C-Reactive Protein Total Protein Albumin Prealbumin Triglycerides Cholesterol LDL Cholesterol Direct HDL Cholesterol 25-OH Vitamin D Total 13 L PTH Intact 10.88 L Urine pH Urine WBC (Auto) Urine Creatinine Urine Total Protein Fluid Total Protein Vancomycin Trough Rheumatoid Factor Complement C4 Miscellaneous Test Crossmatch 02/16/17 02/16/17 02/16/17 05:12 06:00 12:39 WBC RBC Hgb Hct MCV MCH MCHC RDW Plt Count Lymph % (Auto) [place] % (Auto) Lymph # [place] # Baso # Seg Neutrophils % Seg Neuts % (Manual) Lymphocytes % (Manual) Monocytes % (Manual) Eosinophils % (Manual) Basophils % (Manual) Nucleated RBC % Seg Neutrophils # Seg Neutrophils # Man Lymphocytes # (Manual) Monocytes # (Manual) Eosinophils # (Manual) Basophils # (Manual) PT INR Fibrinogen dRVVT Confirm Interp Factor V Activity POC ABG pH POC ABG pCO2 POC ABG pO2 ABG pO2 ABG HCO3 ABG Base Excess ABG Hemoglobin Oxyhemoglobin Sodium Potassium Chloride Carbon Dioxide BUN 74 H Creatinine 1.7 H Glucose 102 H POC Glucose 125 H 109 H Lactic Acid Calcium Ionized Calcium Phosphorus 2.10 L D Magnesium Direct Bilirubin AST ALT Alkaline Phosphatase Lactate Dehydrogenase Troponin T C-Reactive Protein Total Protein Albumin Prealbumin Triglycerides Cholesterol LDL Cholesterol Direct HDL Cholesterol 25-OH Vitamin D Total PTH Intact Urine pH Urine WBC (Auto) Urine Creatinine Urine Total Protein Fluid Total Protein Vancomycin Trough Rheumatoid Factor Complement C4 Miscellaneous Test Crossmatch 02/16/17 02/16/17 02/17/17 17:31 23:57 05:30 WBC RBC Hgb Hct MCV MCH MCHC RDW Plt Count Lymph % (Auto) [place] % (Auto) Lymph # [place] # Baso # Seg Neutrophils % Seg Neuts % (Manual) Lymphocytes % (Manual) Monocytes % (Manual) Eosinophils % (Manual) Basophils % (Manual) Nucleated RBC % Seg Neutrophils # Seg Neutrophils # Man Lymphocytes # (Manual) Monocytes # (Manual) Eosinophils # (Manual) Basophils # (Manual) PT INR Fibrinogen dRVVT Confirm Interp Factor V Activity POC ABG pH POC ABG pCO2 POC ABG pO2 ABG pO2 ABG HCO3 ABG Base Excess ABG Hemoglobin Oxyhemoglobin Sodium Potassium Chloride Carbon Dioxide BUN Creatinine Glucose POC Glucose 106 H 127 H 122 H Lactic Acid Calcium Ionized Calcium Phosphorus Magnesium Direct Bilirubin AST ALT Alkaline Phosphatase Lactate Dehydrogenase Troponin T C-Reactive Protein Total Protein Albumin Prealbumin Triglycerides Cholesterol LDL Cholesterol Direct HDL Cholesterol 25-OH Vitamin D Total PTH Intact Urine pH Urine WBC (Auto) Urine Creatinine Urine Total Protein Fluid Total Protein Vancomycin Trough Rheumatoid Factor Complement C4 Miscellaneous Test Crossmatch 02/17/17 02/17/17 02/17/17 06:00 12:17 17:57 WBC RBC Hgb Hct MCV MCH MCHC RDW Plt Count Lymph % (Auto) [place] % (Auto) Lymph # [place] # Baso # Seg Neutrophils % Seg Neuts % (Manual) Lymphocytes % (Manual) Monocytes % (Manual) Eosinophils % (Manual) Basophils % (Manual) Nucleated RBC % Seg Neutrophils # Seg Neutrophils # Man Lymphocytes # (Manual) Monocytes # (Manual) Eosinophils # (Manual) Basophils # (Manual) PT INR Fibrinogen dRVVT Confirm Interp Factor V Activity POC ABG pH POC ABG pCO2 POC ABG pO2 ABG pO2 ABG HCO3 ABG Base Excess ABG Hemoglobin Oxyhemoglobin Sodium Potassium Chloride Carbon Dioxide BUN 94 H Creatinine 2.3 H Glucose 106 H POC Glucose 173 H 140 H Lactic Acid Calcium Ionized Calcium Phosphorus Magnesium Direct Bilirubin AST ALT Alkaline Phosphatase Lactate Dehydrogenase Troponin T C-Reactive Protein Total Protein Albumin Prealbumin Triglycerides Cholesterol LDL Cholesterol Direct HDL Cholesterol 25-OH Vitamin D Total PTH Intact Urine pH Urine WBC (Auto) Urine Creatinine Urine Total Protein Fluid Total Protein Vancomycin Trough Rheumatoid Factor Complement C4 Miscellaneous Test Crossmatch 02/18/17 02/18/17 02/18/17 00:20 05:30 06:14 WBC RBC Hgb Hct MCV MCH MCHC RDW Plt Count Lymph % (Auto) [place] % (Auto) Lymph # [place] # Baso # Seg Neutrophils % Seg Neuts % (Manual) Lymphocytes % (Manual) Monocytes % (Manual) Eosinophils % (Manual) Basophils % (Manual) Nucleated RBC % Seg Neutrophils # Seg Neutrophils # Man Lymphocytes # (Manual) Monocytes # (Manual) Eosinophils # (Manual) Basophils # (Manual) PT INR Fibrinogen dRVVT Confirm Interp Factor V Activity POC ABG pH POC ABG pCO2 POC ABG pO2 ABG pO2 ABG HCO3 ABG Base Excess ABG Hemoglobin Oxyhemoglobin Sodium 136 L Potassium Chloride 97.5 L Carbon Dioxide BUN 73 H Creatinine 1.9 H Glucose POC Glucose 132 H 106 H Lactic Acid Calcium Ionized Calcium Phosphorus Magnesium Direct Bilirubin AST ALT Alkaline Phosphatase Lactate Dehydrogenase Troponin T C-Reactive Protein Total Protein Albumin Prealbumin Triglycerides Cholesterol LDL Cholesterol Direct HDL Cholesterol 25-OH Vitamin D Total PTH Intact Urine pH Urine WBC (Auto) Urine Creatinine Urine Total Protein Fluid Total Protein Vancomycin Trough Rheumatoid Factor Complement C4 Miscellaneous Test Crossmatch 02/18/17 02/18/17 02/18/17 09:51 11:32 17:59 WBC 13.1 H RBC 2.77 L Hgb 7.6 L Hct 23.9 L MCV MCH MCHC RDW 19.0 H Plt Count Lymph % (Auto) [place] % (Auto) 11.1 H Lymph # [place] # 1.5 H Baso # Seg Neutrophils % Seg Neuts % (Manual) Lymphocytes % (Manual) Monocytes % (Manual) Eosinophils % (Manual) Basophils % (Manual) Nucleated RBC % Seg Neutrophils # 9.1 H Seg Neutrophils # Man Lymphocytes # (Manual) Monocytes # (Manual) Eosinophils # (Manual) Basophils # (Manual) PT INR Fibrinogen dRVVT Confirm Interp Factor V Activity POC ABG pH POC ABG pCO2 POC ABG pO2 ABG pO2 ABG HCO3 ABG Base Excess ABG Hemoglobin Oxyhemoglobin Sodium Potassium Chloride Carbon Dioxide BUN Creatinine Glucose POC Glucose 123 H 119 H Lactic Acid Calcium Ionized Calcium Phosphorus Magnesium Direct Bilirubin AST ALT Alkaline Phosphatase Lactate Dehydrogenase Troponin T C-Reactive Protein Total Protein Albumin Prealbumin Triglycerides Cholesterol LDL Cholesterol Direct HDL Cholesterol 25-OH Vitamin D Total PTH Intact Urine pH Urine WBC (Auto) Urine Creatinine Urine Total Protein Fluid Total Protein Vancomycin Trough Rheumatoid Factor Complement C4 Miscellaneous Test Crossmatch 02/18/17 02/19/17 02/19/17 23:47 05:36 09:45 WBC RBC Hgb Hct MCV MCH 27 L MCHC RDW 19.2 H Plt Count Lymph % (Auto) [place] % (Auto) Lymph # [place] # Baso # Seg Neutrophils % Seg Neuts % (Manual) Lymphocytes % (Manual) Monocytes % (Manual) Eosinophils % (Manual) Basophils % (Manual) Nucleated RBC % Seg Neutrophils # Seg Neutrophils # Man Lymphocytes # (Manual) Monocytes # (Manual) Eosinophils # (Manual) Basophils # (Manual) PT INR Fibrinogen dRVVT Confirm Interp Factor V Activity POC ABG pH POC ABG pCO2 POC ABG pO2 ABG pO2 ABG HCO3 ABG Base Excess ABG Hemoglobin Oxyhemoglobin Sodium Potassium Chloride Carbon Dioxide BUN Creatinine Glucose POC Glucose 110 H 121 H Lactic Acid Calcium Ionized Calcium Phosphorus Magnesium Direct Bilirubin AST ALT Alkaline Phosphatase Lactate Dehydrogenase Troponin T C-Reactive Protein Total Protein Albumin Prealbumin Triglycerides Cholesterol LDL Cholesterol Direct HDL Cholesterol 25-OH Vitamin D Total PTH Intact Urine pH Urine WBC (Auto) Urine Creatinine Urine Total Protein Fluid Total Protein Vancomycin Trough Rheumatoid Factor Complement C4 Miscellaneous Test Crossmatch 02/19/17 02/20/17 02/20/17 09:45 00:10 06:15 WBC RBC Hgb Hct MCV MCH MCHC RDW Plt Count Lymph % (Auto) [place] % (Auto) Lymph # [place] # Baso # Seg Neutrophils % Seg Neuts % (Manual) Lymphocytes % (Manual) Monocytes % (Manual) Eosinophils % (Manual) Basophils % (Manual) Nucleated RBC % Seg Neutrophils # Seg Neutrophils # Man Lymphocytes # (Manual) Monocytes # (Manual) Eosinophils # (Manual) Basophils # (Manual) PT INR Fibrinogen dRVVT Confirm Interp Factor V Activity POC ABG pH POC ABG pCO2 POC ABG pO2 ABG pO2 ABG HCO3 ABG Base Excess ABG Hemoglobin Oxyhemoglobin Sodium 136 L Potassium 5.1 H Chloride 97.6 L Carbon Dioxide 20 L 18 L BUN 110 H 135 H Creatinine 2.6 H 3.2 H Glucose 106 H 110 H POC Glucose 117 H Lactic Acid Calcium Ionized Calcium Phosphorus 4.70 H D 5.60 H Magnesium Direct Bilirubin AST ALT Alkaline Phosphatase Lactate Dehydrogenase Troponin T C-Reactive Protein Total Protein Albumin Prealbumin Triglycerides Cholesterol LDL Cholesterol Direct HDL Cholesterol 25-OH Vitamin D Total PTH Intact Urine pH Urine WBC (Auto) Urine Creatinine Urine Total Protein Fluid Total Protein Vancomycin Trough Rheumatoid Factor Complement C4 Miscellaneous Test Crossmatch 02/20/17 02/20/17 02/21/17 11:30 17:51 00:14 WBC RBC Hgb Hct MCV MCH MCHC RDW Plt Count Lymph % (Auto) [place] % (Auto) Lymph # [place] # Baso # Seg Neutrophils % Seg Neuts % (Manual) Lymphocytes % (Manual) Monocytes % (Manual) Eosinophils % (Manual) Basophils % (Manual) Nucleated RBC % Seg Neutrophils # Seg Neutrophils # Man Lymphocytes # (Manual) Monocytes # (Manual) Eosinophils # (Manual) Basophils # (Manual) PT INR Fibrinogen dRVVT Confirm Interp Factor V Activity POC ABG pH POC ABG pCO2 POC ABG pO2 ABG pO2 ABG HCO3 ABG Base Excess ABG Hemoglobin Oxyhemoglobin Sodium Potassium Chloride Carbon Dioxide BUN Creatinine Glucose POC Glucose 173 H 133 H 125 H Lactic Acid Calcium Ionized Calcium Phosphorus Magnesium Direct Bilirubin AST ALT Alkaline Phosphatase Lactate Dehydrogenase Troponin T C-Reactive Protein Total Protein Albumin Prealbumin Triglycerides Cholesterol LDL Cholesterol Direct HDL Cholesterol 25-OH Vitamin D Total PTH Intact Urine pH Urine WBC (Auto) Urine Creatinine Urine Total Protein Fluid Total Protein Vancomycin Trough Rheumatoid Factor Complement C4 Miscellaneous Test Crossmatch 02/21/17 02/21/17 02/21/17 04:09 05:03 11:58 WBC RBC Hgb Hct MCV MCH MCHC RDW Plt Count Lymph % (Auto) [place] % (Auto) Lymph # [place] # Baso # Seg Neutrophils % Seg Neuts % (Manual) Lymphocytes % (Manual) Monocytes % (Manual) Eosinophils % (Manual) Basophils % (Manual) Nucleated RBC % Seg Neutrophils # Seg Neutrophils # Man Lymphocytes # (Manual) Monocytes # (Manual) Eosinophils # (Manual) Basophils # (Manual) PT INR Fibrinogen dRVVT Confirm Interp Factor V Activity POC ABG pH POC ABG pCO2 POC ABG pO2 ABG pO2 ABG HCO3 ABG Base Excess ABG Hemoglobin Oxyhemoglobin Sodium 135 L Potassium Chloride Carbon Dioxide 20 L BUN 76 H Creatinine 2.0 H Glucose 125 H POC Glucose 134 H 139 H Lactic Acid Calcium Ionized Calcium Phosphorus Magnesium Direct Bilirubin AST ALT Alkaline Phosphatase Lactate Dehydrogenase Troponin T C-Reactive Protein Total Protein Albumin Prealbumin Triglycerides Cholesterol LDL Cholesterol Direct HDL Cholesterol 25-OH Vitamin D Total PTH Intact Urine pH Urine WBC (Auto) Urine Creatinine Urine Total Protein Fluid Total Protein Vancomycin Trough Rheumatoid Factor Complement C4 Miscellaneous Test Crossmatch 02/21/17 02/21/17 02/22/17 17:16 23:41 04:10 WBC RBC Hgb Hct MCV MCH MCHC RDW Plt Count Lymph % (Auto) [place] % (Auto) Lymph # [place] # Baso # Seg Neutrophils % Seg Neuts % (Manual) Lymphocytes % (Manual) Monocytes % (Manual) Eosinophils % (Manual) Basophils % (Manual) Nucleated RBC % Seg Neutrophils # Seg Neutrophils # Man Lymphocytes # (Manual) Monocytes # (Manual) Eosinophils # (Manual) Basophils # (Manual) PT INR Fibrinogen dRVVT Confirm Interp Factor V Activity POC ABG pH POC ABG pCO2 POC ABG pO2 ABG pO2 ABG HCO3 ABG Base Excess ABG Hemoglobin Oxyhemoglobin Sodium 135 L Potassium Chloride 97.7 L Carbon Dioxide 21 L BUN 101 H Creatinine 2.5 H Glucose 116 H POC Glucose 120 H 128 H Lactic Acid Calcium Ionized Calcium Phosphorus Magnesium Direct Bilirubin AST ALT Alkaline Phosphatase Lactate Dehydrogenase Troponin T C-Reactive Protein Total Protein Albumin 1.3 L Prealbumin Triglycerides Cholesterol LDL Cholesterol Direct HDL Cholesterol 25-OH Vitamin D Total PTH Intact Urine pH Urine WBC (Auto) Urine Creatinine Urine Total Protein Fluid Total Protein Vancomycin Trough Rheumatoid Factor Complement C4 Miscellaneous Test Crossmatch 02/22/17 02/22/17 02/22/17 06:03 11:38 18:19 WBC RBC Hgb Hct MCV MCH MCHC RDW Plt Count Lymph % (Auto) [place] % (Auto) Lymph # [place] # Baso # Seg Neutrophils % Seg Neuts % (Manual) Lymphocytes % (Manual) Monocytes % (Manual) Eosinophils % (Manual) Basophils % (Manual) Nucleated RBC % Seg Neutrophils # Seg Neutrophils # Man Lymphocytes # (Manual) Monocytes # (Manual) Eosinophils # (Manual) Basophils # (Manual) PT INR Fibrinogen dRVVT Confirm Interp Factor V Activity POC ABG pH POC ABG pCO2 POC ABG pO2 ABG pO2 ABG HCO3 ABG Base Excess ABG Hemoglobin Oxyhemoglobin Sodium Potassium Chloride Carbon Dioxide BUN Creatinine Glucose POC Glucose 126 H 147 H 121 H Lactic Acid Calcium Ionized Calcium Phosphorus Magnesium Direct Bilirubin AST ALT Alkaline Phosphatase Lactate Dehydrogenase Troponin T C-Reactive Protein Total Protein Albumin Prealbumin Triglycerides Cholesterol LDL Cholesterol Direct HDL Cholesterol 25-OH Vitamin D Total PTH Intact Urine pH Urine WBC (Auto) Urine Creatinine Urine Total Protein Fluid Total Protein Vancomycin Trough Rheumatoid Factor Complement C4 Miscellaneous Test Crossmatch 02/23/17 02/23/17 02/23/17 05:00 05:46 12:27 WBC RBC Hgb Hct MCV MCH MCHC RDW Plt Count Lymph % (Auto) [place] % (Auto) Lymph # [place] # Baso # Seg Neutrophils % Seg Neuts % (Manual) Lymphocytes % (Manual) Monocytes % (Manual) Eosinophils % (Manual) Basophils % (Manual) Nucleated RBC % Seg Neutrophils # Seg Neutrophils # Man Lymphocytes # (Manual) Monocytes # (Manual) Eosinophils # (Manual) Basophils # (Manual) PT INR Fibrinogen dRVVT Confirm Interp Factor V Activity POC ABG pH POC ABG pCO2 POC ABG pO2 ABG pO2 ABG HCO3 ABG Base Excess ABG Hemoglobin Oxyhemoglobin Sodium 136 L Potassium Chloride 97.1 L Carbon Dioxide BUN 50 H Creatinine 1.5 H Glucose POC Glucose 110 H 115 H Lactic Acid Calcium 8.1 L Ionized Calcium Phosphorus 1.90 L D Magnesium Direct Bilirubin AST ALT Alkaline Phosphatase Lactate Dehydrogenase Troponin T C-Reactive Protein Total Protein Albumin Prealbumin Triglycerides Cholesterol LDL Cholesterol Direct HDL Cholesterol 25-OH Vitamin D Total PTH Intact Urine pH Urine WBC (Auto) Urine Creatinine Urine Total Protein Fluid Total Protein Vancomycin Trough Rheumatoid Factor Complement C4 Miscellaneous Test Crossmatch 02/23/17 02/23/17 02/24/17 18:02 23:18 05:04 WBC RBC Hgb Hct MCV MCH MCHC RDW Plt Count Lymph % (Auto) [place] % (Auto) Lymph # [place] # Baso # Seg Neutrophils % Seg Neuts % (Manual) Lymphocytes % (Manual) Monocytes % (Manual) Eosinophils % (Manual) Basophils % (Manual) Nucleated RBC % Seg Neutrophils # Seg Neutrophils # Man Lymphocytes # (Manual) Monocytes # (Manual) Eosinophils # (Manual) Basophils # (Manual) PT INR Fibrinogen dRVVT Confirm Interp Factor V Activity POC ABG pH POC ABG pCO2 POC ABG pO2 ABG pO2 ABG HCO3 ABG Base Excess ABG Hemoglobin Oxyhemoglobin Sodium Potassium Chloride Carbon Dioxide BUN Creatinine Glucose POC Glucose 111 H 126 H 121 H Lactic Acid Calcium Ionized Calcium Phosphorus Magnesium Direct Bilirubin AST ALT Alkaline Phosphatase Lactate Dehydrogenase Troponin T C-Reactive Protein Total Protein Albumin Prealbumin Triglycerides Cholesterol LDL Cholesterol Direct HDL Cholesterol 25-OH Vitamin D Total PTH Intact Urine pH Urine WBC (Auto) Urine Creatinine Urine Total Protein Fluid Total Protein Vancomycin Trough Rheumatoid Factor Complement C4 Miscellaneous Test Crossmatch 02/24/17 02/24/17 02/24/17 05:20 10:05 11:34 WBC RBC 2.95 L Hgb 8.4 L Hct 25.7 L MCV MCH MCHC RDW 20.8 H Plt Count Lymph % (Auto) [place] % (Auto) Lymph # [place] # Baso # Seg Neutrophils % 71.8 H Seg Neuts % (Manual) Lymphocytes % (Manual) Monocytes % (Manual) Eosinophils % (Manual) Basophils % (Manual) Nucleated RBC % Seg Neutrophils # Seg Neutrophils # Man Lymphocytes # (Manual) Monocytes # (Manual) Eosinophils # (Manual) Basophils # (Manual) PT INR Fibrinogen dRVVT Confirm Interp Factor V Activity POC ABG pH POC ABG pCO2 POC ABG pO2 ABG pO2 ABG HCO3 ABG Base Excess ABG Hemoglobin Oxyhemoglobin Sodium 136 L Potassium Chloride 95.5 L Carbon Dioxide BUN 76 H Creatinine 2.2 H Glucose 109 H POC Glucose 123 H Lactic Acid Calcium Ionized Calcium Phosphorus Magnesium Direct Bilirubin AST ALT Alkaline Phosphatase Lactate Dehydrogenase Troponin T C-Reactive Protein Total Protein Albumin Prealbumin Triglycerides Cholesterol LDL Cholesterol Direct HDL Cholesterol 25-OH Vitamin D Total PTH Intact Urine pH Urine WBC (Auto) Urine Creatinine Urine Total Protein Fluid Total Protein Vancomycin Trough Rheumatoid Factor Complement C4 Miscellaneous Test Crossmatch 02/24/17 02/24/17 02/25/17 17:43 23:02 05:00 WBC RBC Hgb Hct MCV MCH MCHC RDW Plt Count Lymph % (Auto) [place] % (Auto) Lymph # [place] # Baso # Seg Neutrophils % Seg Neuts % (Manual) Lymphocytes % (Manual) Monocytes % (Manual) Eosinophils % (Manual) Basophils % (Manual) Nucleated RBC % Seg Neutrophils # Seg Neutrophils # Man Lymphocytes # (Manual) Monocytes # (Manual) Eosinophils # (Manual) Basophils # (Manual) PT INR Fibrinogen dRVVT Confirm Interp Factor V Activity POC ABG pH POC ABG pCO2 POC ABG pO2 ABG pO2 ABG HCO3 ABG Base Excess ABG Hemoglobin Oxyhemoglobin Sodium Potassium Chloride 96.8 L Carbon Dioxide BUN 94 H Creatinine 2.8 H Glucose 118 H POC Glucose 128 H 144 H Lactic Acid Calcium Ionized Calcium Phosphorus Magnesium Direct Bilirubin AST ALT Alkaline Phosphatase Lactate Dehydrogenase Troponin T C-Reactive Protein Total Protein Albumin Prealbumin Triglycerides Cholesterol LDL Cholesterol Direct HDL Cholesterol 25-OH Vitamin D Total PTH Intact Urine pH Urine WBC (Auto) Urine Creatinine Urine Total Protein Fluid Total Protein Vancomycin Trough Rheumatoid Factor Complement C4 Miscellaneous Test Crossmatch 02/25/17 02/25/17 02/25/17 05:32 11:44 18:18 WBC RBC Hgb Hct MCV MCH MCHC RDW Plt Count Lymph % (Auto) [place] % (Auto) Lymph # [place] # Baso # Seg Neutrophils % Seg Neuts % (Manual) Lymphocytes % (Manual) Monocytes % (Manual) Eosinophils % (Manual) Basophils % (Manual) Nucleated RBC % Seg Neutrophils # Seg Neutrophils # Man Lymphocytes # (Manual) Monocytes # (Manual) Eosinophils # (Manual) Basophils # (Manual) PT INR Fibrinogen dRVVT Confirm Interp Factor V Activity POC ABG pH POC ABG pCO2 POC ABG pO2 ABG pO2 ABG HCO3 ABG Base Excess ABG Hemoglobin Oxyhemoglobin Sodium Potassium Chloride Carbon Dioxide BUN Creatinine Glucose POC Glucose 118 H 106 H 210 H Lactic Acid Calcium Ionized Calcium Phosphorus Magnesium Direct Bilirubin AST ALT Alkaline Phosphatase Lactate Dehydrogenase Troponin T C-Reactive Protein Total Protein Albumin Prealbumin Triglycerides Cholesterol LDL Cholesterol Direct HDL Cholesterol 25-OH Vitamin D Total PTH Intact Urine pH Urine WBC (Auto) Urine Creatinine Urine Total Protein Fluid Total Protein Vancomycin Trough Rheumatoid Factor Complement C4 Miscellaneous Test Crossmatch 02/26/17 02/26/17 02/26/17 00:07 05:14 12:07 WBC RBC Hgb Hct MCV MCH MCHC RDW Plt Count Lymph % (Auto) [place] % (Auto) Lymph # [place] # Baso # Seg Neutrophils % Seg Neuts % (Manual) Lymphocytes % (Manual) Monocytes % (Manual) Eosinophils % (Manual) Basophils % (Manual) Nucleated RBC % Seg Neutrophils # Seg Neutrophils # Man Lymphocytes # (Manual) Monocytes # (Manual) Eosinophils # (Manual) Basophils # (Manual) PT INR Fibrinogen dRVVT Confirm Interp Factor V Activity POC ABG pH POC ABG pCO2 POC ABG pO2 ABG pO2 ABG HCO3 ABG Base Excess ABG Hemoglobin Oxyhemoglobin Sodium Potassium Chloride Carbon Dioxide BUN Creatinine Glucose POC Glucose 136 H 142 H 132 H Lactic Acid Calcium Ionized Calcium Phosphorus Magnesium Direct Bilirubin AST ALT Alkaline Phosphatase Lactate Dehydrogenase Troponin T C-Reactive Protein Total Protein Albumin Prealbumin Triglycerides Cholesterol LDL Cholesterol Direct HDL Cholesterol 25-OH Vitamin D Total PTH Intact Urine pH Urine WBC (Auto) Urine Creatinine Urine Total Protein Fluid Total Protein Vancomycin Trough Rheumatoid Factor Complement C4 Miscellaneous Test Crossmatch 02/26/17 02/26/17 02/27/17 18:35 23:54 06:25 WBC RBC Hgb Hct MCV MCH MCHC RDW Plt Count Lymph % (Auto) [place] % (Auto) Lymph # [place] # Baso # Seg Neutrophils % Seg Neuts % (Manual) Lymphocytes % (Manual) Monocytes % (Manual) Eosinophils % (Manual) Basophils % (Manual) Nucleated RBC % Seg Neutrophils # Seg Neutrophils # Man Lymphocytes # (Manual) Monocytes # (Manual) Eosinophils # (Manual) Basophils # (Manual) PT INR Fibrinogen dRVVT Confirm Interp Factor V Activity POC ABG pH POC ABG pCO2 POC ABG pO2 ABG pO2 ABG HCO3 ABG Base Excess ABG Hemoglobin Oxyhemoglobin Sodium Potassium Chloride Carbon Dioxide BUN Creatinine Glucose POC Glucose 155 H 150 H 138 H Lactic Acid Calcium Ionized Calcium Phosphorus Magnesium Direct Bilirubin AST ALT Alkaline Phosphatase Lactate Dehydrogenase Troponin T C-Reactive Protein Total Protein Albumin Prealbumin Triglycerides Cholesterol LDL Cholesterol Direct HDL Cholesterol 25-OH Vitamin D Total PTH Intact Urine pH Urine WBC (Auto) Urine Creatinine Urine Total Protein Fluid Total Protein Vancomycin Trough Rheumatoid Factor Complement C4 Miscellaneous Test Crossmatch 02/27/17 02/27/17 02/27/17 08:50 11:50 17:38 WBC RBC Hgb Hct MCV MCH MCHC RDW Plt Count Lymph % (Auto) [place] % (Auto) Lymph # [place] # Baso # Seg Neutrophils % Seg Neuts % (Manual) Lymphocytes % (Manual) Monocytes % (Manual) Eosinophils % (Manual) Basophils % (Manual) Nucleated RBC % Seg Neutrophils # Seg Neutrophils # Man Lymphocytes # (Manual) Monocytes # (Manual) Eosinophils # (Manual) Basophils # (Manual) PT INR Fibrinogen dRVVT Confirm Interp Factor V Activity POC ABG pH POC ABG pCO2 POC ABG pO2 ABG pO2 ABG HCO3 ABG Base Excess ABG Hemoglobin Oxyhemoglobin Sodium Potassium 3.2 L Chloride Carbon Dioxide BUN 95 H Creatinine 2.7 H Glucose 179 H POC Glucose 150 H 133 H Lactic Acid Calcium Ionized Calcium Phosphorus Magnesium Direct Bilirubin AST ALT Alkaline Phosphatase Lactate Dehydrogenase Troponin T C-Reactive Protein Total Protein Albumin Prealbumin Triglycerides Cholesterol LDL Cholesterol Direct HDL Cholesterol 25-OH Vitamin D Total PTH Intact Urine pH Urine WBC (Auto) Urine Creatinine Urine Total Protein Fluid Total Protein Vancomycin Trough Rheumatoid Factor Complement C4 Miscellaneous Test Crossmatch 02/27/17 02/28/17 02/28/17 23:55 05:23 06:10 WBC RBC Hgb Hct MCV MCH MCHC RDW Plt Count Lymph % (Auto) [place] % (Auto) Lymph # [place] # Baso # Seg Neutrophils % Seg Neuts % (Manual) Lymphocytes % (Manual) Monocytes % (Manual) Eosinophils % (Manual) Basophils % (Manual) Nucleated RBC % Seg Neutrophils # Seg Neutrophils # Man Lymphocytes # (Manual) Monocytes # (Manual) Eosinophils # (Manual) Basophils # (Manual) PT INR Fibrinogen dRVVT Confirm Interp Factor V Activity POC ABG pH POC ABG pCO2 POC ABG pO2 ABG pO2 ABG HCO3 ABG Base Excess ABG Hemoglobin Oxyhemoglobin Sodium 134 L Potassium 3.0 L Chloride 94.9 L Carbon Dioxide BUN 53 H Creatinine 1.9 H Glucose 138 H POC Glucose 134 H 164 H Lactic Acid Calcium Ionized Calcium Phosphorus 2.00 L D Magnesium Direct Bilirubin AST ALT Alkaline Phosphatase Lactate Dehydrogenase Troponin T C-Reactive Protein Total Protein Albumin Prealbumin Triglycerides Cholesterol LDL Cholesterol Direct HDL Cholesterol 25-OH Vitamin D Total PTH Intact Urine pH Urine WBC (Auto) Urine Creatinine Urine Total Protein Fluid Total Protein Vancomycin Trough Rheumatoid Factor Complement C4 Miscellaneous Test Crossmatch 02/28/17 02/28/17 02/28/17 12:18 17:54 23:47 WBC RBC Hgb Hct MCV MCH MCHC RDW Plt Count Lymph % (Auto) [place] % (Auto) Lymph # [place] # Baso # Seg Neutrophils % Seg Neuts % (Manual) Lymphocytes % (Manual) Monocytes % (Manual) Eosinophils % (Manual) Basophils % (Manual) Nucleated RBC % Seg Neutrophils # Seg Neutrophils # Man Lymphocytes # (Manual) Monocytes # (Manual) Eosinophils # (Manual) Basophils # (Manual) PT INR Fibrinogen dRVVT Confirm Interp Factor V Activity POC ABG pH POC ABG pCO2 POC ABG pO2 ABG pO2 ABG HCO3 ABG Base Excess ABG Hemoglobin Oxyhemoglobin Sodium Potassium Chloride Carbon Dioxide BUN Creatinine Glucose POC Glucose 135 H 140 H 144 H Lactic Acid Calcium Ionized Calcium Phosphorus Magnesium Direct Bilirubin AST ALT Alkaline Phosphatase Lactate Dehydrogenase Troponin T C-Reactive Protein Total Protein Albumin Prealbumin Triglycerides Cholesterol LDL Cholesterol Direct HDL Cholesterol 25-OH Vitamin D Total PTH Intact Urine pH Urine WBC (Auto) Urine Creatinine Urine Total Protein Fluid Total Protein Vancomycin Trough Rheumatoid Factor Complement C4 Miscellaneous Test Crossmatch 03/01/17 03/01/17 03/01/17 04:00 12:02 17:13 WBC RBC Hgb Hct MCV MCH MCHC RDW Plt Count Lymph % (Auto) [place] % (Auto) Lymph # [place] # Baso # Seg Neutrophils % Seg Neuts % (Manual) Lymphocytes % (Manual) Monocytes % (Manual) Eosinophils % (Manual) Basophils % (Manual) Nucleated RBC % Seg Neutrophils # Seg Neutrophils # Man Lymphocytes # (Manual) Monocytes # (Manual) Eosinophils # (Manual) Basophils # (Manual) PT INR Fibrinogen dRVVT Confirm Interp Factor V Activity POC ABG pH POC ABG pCO2 POC ABG pO2 ABG pO2 ABG HCO3 ABG Base Excess ABG Hemoglobin Oxyhemoglobin Sodium Potassium 3.0 L Chloride 97.0 L Carbon Dioxide BUN 81 H Creatinine 2.6 H Glucose 121 H POC Glucose 165 H 126 H Lactic Acid Calcium Ionized Calcium Phosphorus Magnesium Direct Bilirubin AST ALT Alkaline Phosphatase Lactate Dehydrogenase Troponin T C-Reactive Protein Total Protein Albumin Prealbumin Triglycerides Cholesterol LDL Cholesterol Direct HDL Cholesterol 25-OH Vitamin D Total PTH Intact Urine pH Urine WBC (Auto) Urine Creatinine Urine Total Protein Fluid Total Protein Vancomycin Trough Rheumatoid Factor Complement C4 Miscellaneous Test Crossmatch 03/02/17 03/02/17 03/02/17 00:10 03:05 05:20 WBC RBC Hgb Hct MCV MCH MCHC RDW Plt Count Lymph % (Auto) [place] % (Auto) Lymph # [place] # Baso # Seg Neutrophils % Seg Neuts % (Manual) Lymphocytes % (Manual) Monocytes % (Manual) Eosinophils % (Manual) Basophils % (Manual) Nucleated RBC % Seg Neutrophils # Seg Neutrophils # Man Lymphocytes # (Manual) Monocytes # (Manual) Eosinophils # (Manual) Basophils # (Manual) PT INR Fibrinogen dRVVT Confirm Interp Factor V Activity POC ABG pH POC ABG pCO2 POC ABG pO2 ABG pO2 ABG HCO3 ABG Base Excess ABG Hemoglobin Oxyhemoglobin Sodium Potassium 3.0 L Chloride Carbon Dioxide BUN 41 H Creatinine 1.6 H Glucose 130 H POC Glucose 129 H 173 H Lactic Acid Calcium Ionized Calcium Phosphorus 1.70 L D Magnesium 1.40 L Direct Bilirubin AST ALT Alkaline Phosphatase Lactate Dehydrogenase Troponin T C-Reactive Protein Total Protein Albumin Prealbumin Triglycerides Cholesterol LDL Cholesterol Direct HDL Cholesterol 25-OH Vitamin D Total PTH Intact Urine pH Urine WBC (Auto) Urine Creatinine Urine Total Protein Fluid Total Protein Vancomycin Trough Rheumatoid Factor Complement C4 Miscellaneous Test Crossmatch 03/02/17 03/02/17 03/02/17 11:49 16:38 23:46 WBC RBC Hgb Hct MCV MCH MCHC RDW Plt Count Lymph % (Auto) [place] % (Auto) Lymph # [place] # Baso # Seg Neutrophils % Seg Neuts % (Manual) Lymphocytes % (Manual) Monocytes % (Manual) Eosinophils % (Manual) Basophils % (Manual) Nucleated RBC % Seg Neutrophils # Seg Neutrophils # Man Lymphocytes # (Manual) Monocytes # (Manual) Eosinophils # (Manual) Basophils # (Manual) PT INR Fibrinogen dRVVT Confirm Interp Factor V Activity POC ABG pH POC ABG pCO2 POC ABG pO2 ABG pO2 ABG HCO3 ABG Base Excess ABG Hemoglobin Oxyhemoglobin Sodium Potassium Chloride Carbon Dioxide BUN Creatinine Glucose POC Glucose 129 H 141 H 119 H Lactic Acid Calcium Ionized Calcium Phosphorus Magnesium Direct Bilirubin AST ALT Alkaline Phosphatase Lactate Dehydrogenase Troponin T C-Reactive Protein Total Protein Albumin Prealbumin Triglycerides Cholesterol LDL Cholesterol Direct HDL Cholesterol 25-OH Vitamin D Total PTH Intact Urine pH Urine WBC (Auto) Urine Creatinine Urine Total Protein Fluid Total Protein Vancomycin Trough Rheumatoid Factor Complement C4 Miscellaneous Test Crossmatch 03/03/17 03/03/17 03/03/17 04:00 11:59 18:08 WBC RBC Hgb Hct MCV MCH MCHC RDW Plt Count Lymph % (Auto) [place] % (Auto) Lymph # [place] # Baso # Seg Neutrophils % Seg Neuts % (Manual) Lymphocytes % (Manual) Monocytes % (Manual) Eosinophils % (Manual) Basophils % (Manual) Nucleated RBC % Seg Neutrophils # Seg Neutrophils # Man Lymphocytes # (Manual) Monocytes # (Manual) Eosinophils # (Manual) Basophils # (Manual) PT INR Fibrinogen dRVVT Confirm Interp Factor V Activity POC ABG pH POC ABG pCO2 POC ABG pO2 ABG pO2 ABG HCO3 ABG Base Excess ABG Hemoglobin Oxyhemoglobin Sodium Potassium Chloride Carbon Dioxide BUN 70 H Creatinine 2.3 H Glucose POC Glucose 125 H 131 H Lactic Acid Calcium Ionized Calcium Phosphorus Magnesium Direct Bilirubin AST ALT Alkaline Phosphatase Lactate Dehydrogenase Troponin T C-Reactive Protein Total Protein Albumin Prealbumin Triglycerides Cholesterol LDL Cholesterol Direct HDL Cholesterol 25-OH Vitamin D Total PTH Intact Urine pH Urine WBC (Auto) Urine Creatinine Urine Total Protein Fluid Total Protein Vancomycin Trough Rheumatoid Factor Complement C4 Miscellaneous Test Crossmatch 03/03/17 03/03/17 03/04/17 20:17 23:43 05:21 WBC RBC Hgb Hct MCV MCH MCHC RDW Plt Count Lymph % (Auto) [place] % (Auto) Lymph # [place] # Baso # Seg Neutrophils % Seg Neuts % (Manual) Lymphocytes % (Manual) Monocytes % (Manual) Eosinophils % (Manual) Basophils % (Manual) Nucleated RBC % Seg Neutrophils # Seg Neutrophils # Man Lymphocytes # (Manual) Monocytes # (Manual) Eosinophils # (Manual) Basophils # (Manual) PT INR Fibrinogen dRVVT Confirm Interp Factor V Activity POC ABG pH 7.518 H POC ABG pCO2 28.8 L POC ABG pO2 61 L ABG pO2 ABG HCO3 ABG Base Excess ABG Hemoglobin Oxyhemoglobin Sodium Potassium Chloride Carbon Dioxide BUN Creatinine Glucose POC Glucose 122 H 130 H Lactic Acid Calcium Ionized Calcium Phosphorus Magnesium Direct Bilirubin AST ALT Alkaline Phosphatase Lactate Dehydrogenase Troponin T C-Reactive Protein Total Protein Albumin Prealbumin Triglycerides Cholesterol LDL Cholesterol Direct HDL Cholesterol 25-OH Vitamin D Total PTH Intact Urine pH Urine WBC (Auto) Urine Creatinine Urine Total Protein Fluid Total Protein Vancomycin Trough Rheumatoid Factor Complement C4 Miscellaneous Test Crossmatch 03/04/17 03/05/17 03/06/17 06:10 06:15 03:52 WBC RBC Hgb Hct MCV MCH MCHC RDW Plt Count Lymph % (Auto) [place] % (Auto) Lymph # [place] # Baso # Seg Neutrophils % Seg Neuts % (Manual) Lymphocytes % (Manual) Monocytes % (Manual) Eosinophils % (Manual) Basophils % (Manual) Nucleated RBC % Seg Neutrophils # Seg Neutrophils # Man Lymphocytes # (Manual) Monocytes # (Manual) Eosinophils # (Manual) Basophils # (Manual) PT INR Fibrinogen dRVVT Confirm Interp Factor V Activity POC ABG pH POC ABG pCO2 POC ABG pO2 ABG pO2 ABG HCO3 ABG Base Excess ABG Hemoglobin Oxyhemoglobin Sodium 135 L 136 L Potassium 5.2 H 5.9 H Chloride 95.8 L 97.7 L 96.0 L Carbon Dioxide 21 L 21 L BUN 40 H 56 H 70 H Creatinine 1.7 H 2.4 H 3.0 H Glucose 118 H POC Glucose Lactic Acid Calcium Ionized Calcium Phosphorus 4.80 H D 6.00 H D Magnesium 2.60 H Direct Bilirubin AST ALT Alkaline Phosphatase 165 H Lactate Dehydrogenase Troponin T C-Reactive Protein Total Protein Albumin 1.5 L Prealbumin Triglycerides Cholesterol LDL Cholesterol Direct HDL Cholesterol 25-OH Vitamin D Total PTH Intact Urine pH Urine WBC (Auto) Urine Creatinine Urine Total Protein Fluid Total Protein Vancomycin Trough Rheumatoid Factor Complement C4 Miscellaneous Test Crossmatch 03/06/17 03/06/17 03/06/17 11:19 18:40 23:39 WBC RBC Hgb Hct MCV MCH MCHC RDW Plt Count Lymph % (Auto) [place] % (Auto) Lymph # [place] # Baso # Seg Neutrophils % Seg Neuts % (Manual) Lymphocytes % (Manual) Monocytes % (Manual) Eosinophils % (Manual) Basophils % (Manual) Nucleated RBC % Seg Neutrophils # Seg Neutrophils # Man Lymphocytes # (Manual) Monocytes # (Manual) Eosinophils # (Manual) Basophils # (Manual) PT INR Fibrinogen dRVVT Confirm Interp Factor V Activity POC ABG pH POC ABG pCO2 POC ABG pO2 ABG pO2 ABG HCO3 ABG Base Excess ABG Hemoglobin Oxyhemoglobin Sodium Potassium Chloride Carbon Dioxide BUN Creatinine Glucose POC Glucose 108 H 110 H 156 H Lactic Acid Calcium Ionized Calcium Phosphorus Magnesium Direct Bilirubin AST ALT Alkaline Phosphatase Lactate Dehydrogenase Troponin T C-Reactive Protein Total Protein Albumin Prealbumin Triglycerides Cholesterol LDL Cholesterol Direct HDL Cholesterol 25-OH Vitamin D Total PTH Intact Urine pH Urine WBC (Auto) Urine Creatinine Urine Total Protein Fluid Total Protein Vancomycin Trough Rheumatoid Factor Complement C4 Miscellaneous Test Crossmatch 03/07/17 03/07/17 03/07/17 06:04 11:56 23:31 WBC RBC Hgb Hct MCV MCH MCHC RDW Plt Count Lymph % (Auto) [place] % (Auto) Lymph # [place] # Baso # Seg Neutrophils % Seg Neuts % (Manual) Lymphocytes % (Manual) Monocytes % (Manual) Eosinophils % (Manual) Basophils % (Manual) Nucleated RBC % Seg Neutrophils # Seg Neutrophils # Man Lymphocytes # (Manual) Monocytes # (Manual) Eosinophils # (Manual) Basophils # (Manual) PT INR Fibrinogen dRVVT Confirm Interp Factor V Activity POC ABG pH POC ABG pCO2 POC ABG pO2 ABG pO2 ABG HCO3 ABG Base Excess ABG Hemoglobin Oxyhemoglobin Sodium Potassium Chloride 97.5 L Carbon Dioxide BUN 28 H Creatinine 1.5 H Glucose POC Glucose 106 H 131 H Lactic Acid Calcium 7.9 L Ionized Calcium Phosphorus Magnesium Direct Bilirubin AST ALT Alkaline Phosphatase Lactate Dehydrogenase Troponin T C-Reactive Protein Total Protein Albumin Prealbumin Triglycerides Cholesterol LDL Cholesterol Direct HDL Cholesterol 25-OH Vitamin D Total PTH Intact Urine pH Urine WBC (Auto) Urine Creatinine Urine Total Protein Fluid Total Protein Vancomycin Trough Rheumatoid Factor Complement C4 Miscellaneous Test Crossmatch 03/08/17 03/08/17 03/08/17 05:15 05:38 11:50 WBC RBC Hgb Hct MCV MCH MCHC RDW Plt Count Lymph % (Auto) [place] % (Auto) Lymph # [place] # Baso # Seg Neutrophils % Seg Neuts % (Manual) Lymphocytes % (Manual) Monocytes % (Manual) Eosinophils % (Manual) Basophils % (Manual) Nucleated RBC % Seg Neutrophils # Seg Neutrophils # Man Lymphocytes # (Manual) Monocytes # (Manual) Eosinophils # (Manual) Basophils # (Manual) PT INR Fibrinogen dRVVT Confirm Interp Factor V Activity POC ABG pH POC ABG pCO2 POC ABG pO2 ABG pO2 ABG HCO3 ABG Base Excess ABG Hemoglobin Oxyhemoglobin Sodium 135 L Potassium Chloride 96.6 L Carbon Dioxide 20 L BUN 46 H Creatinine 2.3 H D Glucose 117 H POC Glucose 156 H 131 H Lactic Acid Calcium Ionized Calcium Phosphorus Magnesium Direct Bilirubin AST ALT Alkaline Phosphatase Lactate Dehydrogenase Troponin T C-Reactive Protein Total Protein Albumin Prealbumin Triglycerides Cholesterol LDL Cholesterol Direct HDL Cholesterol 25-OH Vitamin D Total PTH Intact Urine pH Urine WBC (Auto) Urine Creatinine Urine Total Protein Fluid Total Protein Vancomycin Trough Rheumatoid Factor Complement C4 Miscellaneous Test Crossmatch 03/08/17 03/09/17 03/09/17 23:34 04:42 05:20 WBC RBC Hgb Hct MCV MCH MCHC RDW Plt Count Lymph % (Auto) [place] % (Auto) Lymph # [place] # Baso # Seg Neutrophils % Seg Neuts % (Manual) Lymphocytes % (Manual) Monocytes % (Manual) Eosinophils % (Manual) Basophils % (Manual) Nucleated RBC % Seg Neutrophils # Seg Neutrophils # Man Lymphocytes # (Manual) Monocytes # (Manual) Eosinophils # (Manual) Basophils # (Manual) PT INR Fibrinogen dRVVT Confirm Interp Factor V Activity POC ABG pH POC ABG pCO2 POC ABG pO2 ABG pO2 ABG HCO3 ABG Base Excess ABG Hemoglobin Oxyhemoglobin Sodium Potassium 3.2 L Chloride Carbon Dioxide BUN 30 H Creatinine 1.7 H Glucose 112 H POC Glucose 125 H 128 H Lactic Acid Calcium 8.2 L Ionized Calcium Phosphorus 1.80 L D Magnesium 1.40 L Direct Bilirubin AST ALT Alkaline Phosphatase Lactate Dehydrogenase Troponin T C-Reactive Protein Total Protein Albumin Prealbumin Triglycerides Cholesterol LDL Cholesterol Direct HDL Cholesterol 25-OH Vitamin D Total PTH Intact Urine pH Urine WBC (Auto) Urine Creatinine Urine Total Protein Fluid Total Protein Vancomycin Trough Rheumatoid Factor Complement C4 Miscellaneous Test Crossmatch 03/09/17 03/09/17 03/10/17 11:48 17:38 00:08 WBC RBC Hgb Hct MCV MCH MCHC RDW Plt Count Lymph % (Auto) [place] % (Auto) Lymph # [place] # Baso # Seg Neutrophils % Seg Neuts % (Manual) Lymphocytes % (Manual) Monocytes % (Manual) Eosinophils % (Manual) Basophils % (Manual) Nucleated RBC % Seg Neutrophils # Seg Neutrophils # Man Lymphocytes # (Manual) Monocytes # (Manual) Eosinophils # (Manual) Basophils # (Manual) PT INR Fibrinogen dRVVT Confirm Interp Factor V Activity POC ABG pH POC ABG pCO2 POC ABG pO2 ABG pO2 ABG HCO3 ABG Base Excess ABG Hemoglobin Oxyhemoglobin Sodium Potassium Chloride Carbon Dioxide BUN Creatinine Glucose POC Glucose 146 H 140 H 137 H Lactic Acid Calcium Ionized Calcium Phosphorus Magnesium Direct Bilirubin AST ALT Alkaline Phosphatase Lactate Dehydrogenase Troponin T C-Reactive Protein Total Protein Albumin Prealbumin Triglycerides Cholesterol LDL Cholesterol Direct HDL Cholesterol 25-OH Vitamin D Total PTH Intact Urine pH Urine WBC (Auto) Urine Creatinine Urine Total Protein Fluid Total Protein Vancomycin Trough Rheumatoid Factor Complement C4 Miscellaneous Test Crossmatch 03/10/17 03/10/17 03/10/17 04:46 06:37 11:22 WBC RBC Hgb Hct MCV MCH MCHC RDW Plt Count Lymph % (Auto) [place] % (Auto) Lymph # [place] # Baso # Seg Neutrophils % Seg Neuts % (Manual) Lymphocytes % (Manual) Monocytes % (Manual) Eosinophils % (Manual) Basophils % (Manual) Nucleated RBC % Seg Neutrophils # Seg Neutrophils # Man Lymphocytes # (Manual) Monocytes # (Manual) Eosinophils # (Manual) Basophils # (Manual) PT INR Fibrinogen dRVVT Confirm Interp Factor V Activity POC ABG pH POC ABG pCO2 POC ABG pO2 ABG pO2 ABG HCO3 ABG Base Excess ABG Hemoglobin Oxyhemoglobin Sodium 135 L Potassium Chloride 96.3 L Carbon Dioxide 21 L BUN 46 H Creatinine 2.2 H Glucose 106 H POC Glucose 115 H 151 H Lactic Acid Calcium 8.2 L Ionized Calcium Phosphorus Magnesium Direct Bilirubin AST ALT Alkaline Phosphatase Lactate Dehydrogenase Troponin T C-Reactive Protein Total Protein Albumin Prealbumin Triglycerides Cholesterol LDL Cholesterol Direct HDL Cholesterol 25-OH Vitamin D Total PTH Intact Urine pH Urine WBC (Auto) Urine Creatinine Urine Total Protein Fluid Total Protein Vancomycin Trough Rheumatoid Factor Complement C4 Miscellaneous Test Crossmatch 03/10/17 03/10/17 03/11/17 17:53 23:46 05:19 WBC RBC Hgb Hct MCV MCH MCHC RDW Plt Count Lymph % (Auto) [place] % (Auto) Lymph # [place] # Baso # Seg Neutrophils % Seg Neuts % (Manual) Lymphocytes % (Manual) Monocytes % (Manual) Eosinophils % (Manual) Basophils % (Manual) Nucleated RBC % Seg Neutrophils # Seg Neutrophils # Man Lymphocytes # (Manual) Monocytes # (Manual) Eosinophils # (Manual) Basophils # (Manual) PT INR Fibrinogen dRVVT Confirm Interp Factor V Activity POC ABG pH POC ABG pCO2 POC ABG pO2 ABG pO2 ABG HCO3 ABG Base Excess ABG Hemoglobin Oxyhemoglobin Sodium Potassium Chloride Carbon Dioxide BUN Creatinine Glucose POC Glucose 137 H 131 H 108 H Lactic Acid Calcium Ionized Calcium Phosphorus Magnesium Direct Bilirubin AST ALT Alkaline Phosphatase Lactate Dehydrogenase Troponin T C-Reactive Protein Total Protein Albumin Prealbumin Triglycerides Cholesterol LDL Cholesterol Direct HDL Cholesterol 25-OH Vitamin D Total PTH Intact Urine pH Urine WBC (Auto) Urine Creatinine Urine Total Protein Fluid Total Protein Vancomycin Trough Rheumatoid Factor Complement C4 Miscellaneous Test Crossmatch 03/11/17 03/11/17 03/11/17 11:37 18:13 23:55 WBC RBC Hgb Hct MCV MCH MCHC RDW Plt Count Lymph % (Auto) [place] % (Auto) Lymph # [place] # Baso # Seg Neutrophils % Seg Neuts % (Manual) Lymphocytes % (Manual) Monocytes % (Manual) Eosinophils % (Manual) Basophils % (Manual) Nucleated RBC % Seg Neutrophils # Seg Neutrophils # Man Lymphocytes # (Manual) Monocytes # (Manual) Eosinophils # (Manual) Basophils # (Manual) PT INR Fibrinogen dRVVT Confirm Interp Factor V Activity POC ABG pH POC ABG pCO2 POC ABG pO2 ABG pO2 ABG HCO3 ABG Base Excess ABG Hemoglobin Oxyhemoglobin Sodium Potassium Chloride Carbon Dioxide BUN Creatinine Glucose POC Glucose 113 H 126 H 134 H Lactic Acid Calcium Ionized Calcium Phosphorus Magnesium Direct Bilirubin AST ALT Alkaline Phosphatase Lactate Dehydrogenase Troponin T C-Reactive Protein Total Protein Albumin Prealbumin Triglycerides Cholesterol LDL Cholesterol Direct HDL Cholesterol 25-OH Vitamin D Total PTH Intact Urine pH Urine WBC (Auto) Urine Creatinine Urine Total Protein Fluid Total Protein Vancomycin Trough Rheumatoid Factor Complement C4 Miscellaneous Test Crossmatch 03/12/17 03/12/17 03/12/17 05:06 11:30 17:39 WBC RBC Hgb Hct MCV MCH MCHC RDW Plt Count Lymph % (Auto) [place] % (Auto) Lymph # [place] # Baso # Seg Neutrophils % Seg Neuts % (Manual) Lymphocytes % (Manual) Monocytes % (Manual) Eosinophils % (Manual) Basophils % (Manual) Nucleated RBC % Seg Neutrophils # Seg Neutrophils # Man Lymphocytes # (Manual) Monocytes # (Manual) Eosinophils # (Manual) Basophils # (Manual) PT INR Fibrinogen dRVVT Confirm Interp Factor V Activity POC ABG pH POC ABG pCO2 POC ABG pO2 ABG pO2 ABG HCO3 ABG Base Excess ABG Hemoglobin Oxyhemoglobin Sodium Potassium Chloride Carbon Dioxide BUN Creatinine Glucose POC Glucose 127 H 144 H 151 H Lactic Acid Calcium Ionized Calcium Phosphorus Magnesium Direct Bilirubin AST ALT Alkaline Phosphatase Lactate Dehydrogenase Troponin T C-Reactive Protein Total Protein Albumin Prealbumin Triglycerides Cholesterol LDL Cholesterol Direct HDL Cholesterol 25-OH Vitamin D Total PTH Intact Urine pH Urine WBC (Auto) Urine Creatinine Urine Total Protein Fluid Total Protein Vancomycin Trough Rheumatoid Factor Complement C4 Miscellaneous Test Crossmatch 03/13/17 03/13/17 03/13/17 05:01 05:39 11:29 WBC RBC Hgb Hct MCV MCH MCHC RDW Plt Count Lymph % (Auto) [place] % (Auto) Lymph # [place] # Baso # Seg Neutrophils % Seg Neuts % (Manual) Lymphocytes % (Manual) Monocytes % (Manual) Eosinophils % (Manual) Basophils % (Manual) Nucleated RBC % Seg Neutrophils # Seg Neutrophils # Man Lymphocytes # (Manual) Monocytes # (Manual) Eosinophils # (Manual) Basophils # (Manual) PT INR Fibrinogen dRVVT Confirm Interp Factor V Activity POC ABG pH POC ABG pCO2 POC ABG pO2 ABG pO2 ABG HCO3 ABG Base Excess ABG Hemoglobin Oxyhemoglobin Sodium 136 L Potassium 3.4 L Chloride 94.6 L Carbon Dioxide BUN 68 H Creatinine 2.9 H Glucose 105 H POC Glucose 123 H 128 H Lactic Acid Calcium Ionized Calcium Phosphorus Magnesium Direct Bilirubin AST ALT Alkaline Phosphatase Lactate Dehydrogenase Troponin T C-Reactive Protein Total Protein Albumin Prealbumin Triglycerides Cholesterol LDL Cholesterol Direct HDL Cholesterol 25-OH Vitamin D Total PTH Intact Urine pH Urine WBC (Auto) Urine Creatinine Urine Total Protein Fluid Total Protein Vancomycin Trough Rheumatoid Factor Complement C4 Miscellaneous Test Crossmatch 03/13/17 03/13/17 03/14/17 17:39 21:53 03:30 WBC RBC Hgb Hct MCV MCH MCHC RDW Plt Count Lymph % (Auto) [place] % (Auto) Lymph # [place] # Baso # Seg Neutrophils % Seg Neuts % (Manual) Lymphocytes % (Manual) Monocytes % (Manual) Eosinophils % (Manual) Basophils % (Manual) Nucleated RBC % Seg Neutrophils # Seg Neutrophils # Man Lymphocytes # (Manual) Monocytes # (Manual) Eosinophils # (Manual) Basophils # (Manual) PT INR Fibrinogen dRVVT Confirm Interp Factor V Activity POC ABG pH POC ABG pCO2 POC ABG pO2 ABG pO2 ABG HCO3 ABG Base Excess ABG Hemoglobin Oxyhemoglobin Sodium 133 L Potassium Chloride 95.7 L Carbon Dioxide 21 L BUN 37 H Creatinine 1.8 H Glucose 138 H POC Glucose 160 H 147 H Lactic Acid Calcium 8.1 L Ionized Calcium Phosphorus 2.10 L D Magnesium 1.60 L Direct Bilirubin AST ALT Alkaline Phosphatase Lactate Dehydrogenase Troponin T C-Reactive Protein Total Protein Albumin Prealbumin Triglycerides Cholesterol LDL Cholesterol Direct HDL Cholesterol 25-OH Vitamin D Total PTH Intact Urine pH Urine WBC (Auto) Urine Creatinine Urine Total Protein Fluid Total Protein Vancomycin Trough Rheumatoid Factor Complement C4 Miscellaneous Test Crossmatch 03/14/17 03/14/17 03/14/17 05:19 11:08 12:51 WBC RBC Hgb Hct MCV MCH MCHC RDW Plt Count Lymph % (Auto) [place] % (Auto) Lymph # [place] # Baso # Seg Neutrophils % Seg Neuts % (Manual) Lymphocytes % (Manual) Monocytes % (Manual) Eosinophils % (Manual) Basophils % (Manual) Nucleated RBC % Seg Neutrophils # Seg Neutrophils # Man Lymphocytes # (Manual) Monocytes # (Manual) Eosinophils # (Manual) Basophils # (Manual) PT INR Fibrinogen dRVVT Confirm Interp Factor V Activity POC ABG pH POC ABG pCO2 POC ABG pO2 ABG pO2 ABG HCO3 ABG Base Excess ABG Hemoglobin Oxyhemoglobin Sodium Potassium Chloride Carbon Dioxide BUN Creatinine Glucose POC Glucose 159 H 144 H Lactic Acid Calcium Ionized Calcium Phosphorus Magnesium Direct Bilirubin AST ALT Alkaline Phosphatase Lactate Dehydrogenase Troponin T C-Reactive Protein 19.50 H Total Protein Albumin Prealbumin Triglycerides Cholesterol LDL Cholesterol Direct HDL Cholesterol 25-OH Vitamin D Total PTH Intact Urine pH Urine WBC (Auto) Urine Creatinine Urine Total Protein Fluid Total Protein Vancomycin Trough Rheumatoid Factor Complement C4 Miscellaneous Test Crossmatch 03/14/17 03/14/17 03/14/17 14:30 16:50 16:55 WBC 17.6 H RBC 2.18 L Hgb 6.0 L Hct 19.8 L* MCV MCH MCHC RDW 19.9 H Plt Count Lymph % (Auto) [place] % (Auto) Lymph # [place] # Baso # Seg Neutrophils % Seg Neuts % (Manual) Lymphocytes % (Manual) 13.0 L Monocytes % (Manual) 15.0 H Eosinophils % (Manual) Basophils % (Manual) Nucleated RBC % Seg Neutrophils # Seg Neutrophils # Man 12.3 H Lymphocytes # (Manual) Monocytes # (Manual) 2.6 H Eosinophils # (Manual) Basophils # (Manual) PT INR Fibrinogen dRVVT Confirm Interp Factor V Activity POC ABG pH POC ABG pCO2 POC ABG pO2 ABG pO2 ABG HCO3 ABG Base Excess ABG Hemoglobin Oxyhemoglobin Sodium Potassium Chloride Carbon Dioxide BUN Creatinine Glucose POC Glucose 156 H Lactic Acid Calcium Ionized Calcium Phosphorus Magnesium Direct Bilirubin AST ALT Alkaline Phosphatase Lactate Dehydrogenase Troponin T C-Reactive Protein Total Protein Albumin Prealbumin Triglycerides Cholesterol LDL Cholesterol Direct HDL Cholesterol 25-OH Vitamin D Total PTH Intact Urine pH Urine WBC (Auto) Urine Creatinine Urine Total Protein Fluid Total Protein Vancomycin Trough Rheumatoid Factor Complement C4 Miscellaneous Test Crossmatch See Detail 03/14/17 03/15/17 03/15/17 23:31 05:03 05:03 WBC 15.2 H RBC 2.42 L Hgb 6.9 L Hct 22.2 L MCV MCH MCHC RDW 18.4 H Plt Count Lymph % (Auto) [place] % (Auto) Lymph # [place] # Baso # Seg Neutrophils % Seg Neuts % (Manual) Lymphocytes % (Manual) Monocytes % (Manual) Eosinophils % (Manual) Basophils % (Manual) Nucleated RBC % Seg Neutrophils # Seg Neutrophils # Man Lymphocytes # (Manual) Monocytes # (Manual) Eosinophils # (Manual) Basophils # (Manual) PT INR Fibrinogen dRVVT Confirm Interp Factor V Activity POC ABG pH POC ABG pCO2 POC ABG pO2 ABG pO2 ABG HCO3 ABG Base Excess ABG Hemoglobin Oxyhemoglobin Sodium Potassium 3.5 L Chloride Carbon Dioxide BUN 54 H Creatinine 2.6 H Glucose 127 H POC Glucose 176 H Lactic Acid Calcium Ionized Calcium Phosphorus Magnesium Direct Bilirubin AST ALT Alkaline Phosphatase Lactate Dehydrogenase Troponin T C-Reactive Protein Total Protein Albumin Prealbumin Triglycerides Cholesterol LDL Cholesterol Direct HDL Cholesterol 25-OH Vitamin D Total PTH Intact Urine pH Urine WBC (Auto) Urine Creatinine Urine Total Protein Fluid Total Protein Vancomycin Trough Rheumatoid Factor Complement C4 Miscellaneous Test Crossmatch 03/15/17 03/15/17 03/15/17 05:04 12:52 17:46 WBC RBC Hgb Hct MCV MCH MCHC RDW Plt Count Lymph % (Auto) [place] % (Auto) Lymph # [place] # Baso # Seg Neutrophils % Seg Neuts % (Manual) Lymphocytes % (Manual) Monocytes % (Manual) Eosinophils % (Manual) Basophils % (Manual) Nucleated RBC % Seg Neutrophils # Seg Neutrophils # Man Lymphocytes # (Manual) Monocytes # (Manual) Eosinophils # (Manual) Basophils # (Manual) PT INR Fibrinogen dRVVT Confirm Interp Factor V Activity POC ABG pH POC ABG pCO2 POC ABG pO2 ABG pO2 ABG HCO3 ABG Base Excess ABG Hemoglobin Oxyhemoglobin Sodium Potassium Chloride Carbon Dioxide BUN Creatinine Glucose POC Glucose 106 H 141 H 170 H Lactic Acid Calcium Ionized Calcium Phosphorus Magnesium Direct Bilirubin AST ALT Alkaline Phosphatase Lactate Dehydrogenase Troponin T C-Reactive Protein Total Protein Albumin Prealbumin Triglycerides Cholesterol LDL Cholesterol Direct HDL Cholesterol 25-OH Vitamin D Total PTH Intact Urine pH Urine WBC (Auto) Urine Creatinine Urine Total Protein Fluid Total Protein Vancomycin Trough Rheumatoid Factor Complement C4 Miscellaneous Test Crossmatch 03/16/17 03/16/17 03/16/17 00:16 03:35 05:15 WBC RBC Hgb Hct MCV MCH MCHC RDW Plt Count Lymph % (Auto) [place] % (Auto) Lymph # [place] # Baso # Seg Neutrophils % Seg Neuts % (Manual) Lymphocytes % (Manual) Monocytes % (Manual) Eosinophils % (Manual) Basophils % (Manual) Nucleated RBC % Seg Neutrophils # Seg Neutrophils # Man Lymphocytes # (Manual) Monocytes # (Manual) Eosinophils # (Manual) Basophils # (Manual) PT INR Fibrinogen dRVVT Confirm Interp Factor V Activity POC ABG pH POC ABG pCO2 POC ABG pO2 ABG pO2 ABG HCO3 ABG Base Excess ABG Hemoglobin Oxyhemoglobin Sodium Potassium 3.5 L Chloride Carbon Dioxide BUN 26 H Creatinine 1.3 H Glucose 129 H POC Glucose 120 H 140 H Lactic Acid Calcium 7.9 L Ionized Calcium Phosphorus 2.20 L D Magnesium Direct Bilirubin AST ALT Alkaline Phosphatase Lactate Dehydrogenase Troponin T C-Reactive Protein Total Protein Albumin Prealbumin Triglycerides Cholesterol LDL Cholesterol Direct HDL Cholesterol 25-OH Vitamin D Total PTH Intact Urine pH Urine WBC (Auto) Urine Creatinine Urine Total Protein Fluid Total Protein Vancomycin Trough Rheumatoid Factor Complement C4 Miscellaneous Test Crossmatch 03/16/17 03/16/17 03/17/17 12:26 18:16 00:00 WBC RBC Hgb Hct MCV MCH MCHC RDW Plt Count Lymph % (Auto) [place] % (Auto) Lymph # [place] # Baso # Seg Neutrophils % Seg Neuts % (Manual) Lymphocytes % (Manual) Monocytes % (Manual) Eosinophils % (Manual) Basophils % (Manual) Nucleated RBC % Seg Neutrophils # Seg Neutrophils # Man Lymphocytes # (Manual) Monocytes # (Manual) Eosinophils # (Manual) Basophils # (Manual) PT INR Fibrinogen dRVVT Confirm Interp Factor V Activity POC ABG pH POC ABG pCO2 POC ABG pO2 ABG pO2 ABG HCO3 ABG Base Excess ABG Hemoglobin Oxyhemoglobin Sodium Potassium Chloride Carbon Dioxide BUN Creatinine Glucose POC Glucose 133 H 107 H 124 H Lactic Acid Calcium Ionized Calcium Phosphorus Magnesium Direct Bilirubin AST ALT Alkaline Phosphatase Lactate Dehydrogenase Troponin T C-Reactive Protein Total Protein Albumin Prealbumin Triglycerides Cholesterol LDL Cholesterol Direct HDL Cholesterol 25-OH Vitamin D Total PTH Intact Urine pH Urine WBC (Auto) Urine Creatinine Urine Total Protein Fluid Total Protein Vancomycin Trough Rheumatoid Factor Complement C4 Miscellaneous Test Crossmatch 03/17/17 03/17/17 03/17/17 04:00 05:57 12:00 WBC RBC Hgb Hct MCV MCH MCHC RDW Plt Count Lymph % (Auto) [place] % (Auto) Lymph # [place] # Baso # Seg Neutrophils % Seg Neuts % (Manual) Lymphocytes % (Manual) Monocytes % (Manual) Eosinophils % (Manual) Basophils % (Manual) Nucleated RBC % Seg Neutrophils # Seg Neutrophils # Man Lymphocytes # (Manual) Monocytes # (Manual) Eosinophils # (Manual) Basophils # (Manual) PT INR Fibrinogen dRVVT Confirm Interp Factor V Activity POC ABG pH POC ABG pCO2 POC ABG pO2 ABG pO2 ABG HCO3 ABG Base Excess ABG Hemoglobin Oxyhemoglobin Sodium 134 L Potassium Chloride 95.1 L Carbon Dioxide BUN 37 H Creatinine 1.8 H Glucose 115 H POC Glucose 141 H 129 H Lactic Acid Calcium 8.3 L Ionized Calcium Phosphorus 5.50 H D Magnesium Direct Bilirubin AST ALT Alkaline Phosphatase Lactate Dehydrogenase Troponin T C-Reactive Protein Total Protein Albumin Prealbumin Triglycerides Cholesterol LDL Cholesterol Direct HDL Cholesterol 25-OH Vitamin D Total PTH Intact Urine pH Urine WBC (Auto) Urine Creatinine Urine Total Protein Fluid Total Protein Vancomycin Trough Rheumatoid Factor Complement C4 Miscellaneous Test Crossmatch 03/17/17 03/18/17 03/18/17 17:23 00:04 04:00 WBC RBC Hgb Hct MCV MCH MCHC RDW Plt Count Lymph % (Auto) [place] % (Auto) Lymph # [place] # Baso # Seg Neutrophils % Seg Neuts % (Manual) Lymphocytes % (Manual) Monocytes % (Manual) Eosinophils % (Manual) Basophils % (Manual) Nucleated RBC % Seg Neutrophils # Seg Neutrophils # Man Lymphocytes # (Manual) Monocytes # (Manual) Eosinophils # (Manual) Basophils # (Manual) PT INR Fibrinogen dRVVT Confirm Interp Factor V Activity POC ABG pH POC ABG pCO2 POC ABG pO2 ABG pO2 ABG HCO3 ABG Base Excess ABG Hemoglobin Oxyhemoglobin Sodium Potassium Chloride Carbon Dioxide BUN 23 H Creatinine 1.3 H Glucose 122 H POC Glucose 155 H 126 H Lactic Acid Calcium 8.3 L Ionized Calcium Phosphorus Magnesium Direct Bilirubin AST ALT Alkaline Phosphatase Lactate Dehydrogenase Troponin T C-Reactive Protein Total Protein Albumin Prealbumin Triglycerides Cholesterol LDL Cholesterol Direct HDL Cholesterol 25-OH Vitamin D Total PTH Intact Urine pH Urine WBC (Auto) Urine Creatinine Urine Total Protein Fluid Total Protein Vancomycin Trough Rheumatoid Factor Complement C4 Miscellaneous Test Crossmatch 03/18/17 03/18/17 03/18/17 05:47 11:15 18:07 WBC RBC Hgb Hct MCV MCH MCHC RDW Plt Count Lymph % (Auto) [place] % (Auto) Lymph # [place] # Baso # Seg Neutrophils % Seg Neuts % (Manual) Lymphocytes % (Manual) Monocytes % (Manual) Eosinophils % (Manual) Basophils % (Manual) Nucleated RBC % Seg Neutrophils # Seg Neutrophils # Man Lymphocytes # (Manual) Monocytes # (Manual) Eosinophils # (Manual) Basophils # (Manual) PT INR Fibrinogen dRVVT Confirm Interp Factor V Activity POC ABG pH POC ABG pCO2 POC ABG pO2 ABG pO2 ABG HCO3 ABG Base Excess ABG Hemoglobin Oxyhemoglobin Sodium Potassium Chloride Carbon Dioxide BUN Creatinine Glucose POC Glucose 139 H 138 H 134 H Lactic Acid Calcium Ionized Calcium Phosphorus Magnesium Direct Bilirubin AST ALT Alkaline Phosphatase Lactate Dehydrogenase Troponin T C-Reactive Protein Total Protein Albumin Prealbumin Triglycerides Cholesterol LDL Cholesterol Direct HDL Cholesterol 25-OH Vitamin D Total PTH Intact Urine pH Urine WBC (Auto) Urine Creatinine Urine Total Protein Fluid Total Protein Vancomycin Trough Rheumatoid Factor Complement C4 Miscellaneous Test Crossmatch 03/19/17 03/19/17 03/19/17 00:34 06:11 11:15 WBC RBC Hgb Hct MCV MCH MCHC RDW Plt Count Lymph % (Auto) [place] % (Auto) Lymph # [place] # Baso # Seg Neutrophils % Seg Neuts % (Manual) Lymphocytes % (Manual) Monocytes % (Manual) Eosinophils % (Manual) Basophils % (Manual) Nucleated RBC % Seg Neutrophils # Seg Neutrophils # Man Lymphocytes # (Manual) Monocytes # (Manual) Eosinophils # (Manual) Basophils # (Manual) PT INR Fibrinogen dRVVT Confirm Interp Factor V Activity POC ABG pH POC ABG pCO2 POC ABG pO2 ABG pO2 ABG HCO3 ABG Base Excess ABG Hemoglobin Oxyhemoglobin Sodium Potassium Chloride Carbon Dioxide BUN Creatinine Glucose POC Glucose 139 H 146 H 129 H Lactic Acid Calcium Ionized Calcium Phosphorus Magnesium Direct Bilirubin AST ALT Alkaline Phosphatase Lactate Dehydrogenase Troponin T C-Reactive Protein Total Protein Albumin Prealbumin Triglycerides Cholesterol LDL Cholesterol Direct HDL Cholesterol 25-OH Vitamin D Total PTH Intact Urine pH Urine WBC (Auto) Urine Creatinine Urine Total Protein Fluid Total Protein Vancomycin Trough Rheumatoid Factor Complement C4 Miscellaneous Test Crossmatch 03/19/17 03/19/17 03/19/17 17:28 23:23 Unknown WBC RBC Hgb Hct MCV MCH MCHC RDW Plt Count Lymph % (Auto) [place] % (Auto) Lymph # [place] # Baso # Seg Neutrophils % Seg Neuts % (Manual) Lymphocytes % (Manual) Monocytes % (Manual) Eosinophils % (Manual) Basophils % (Manual) Nucleated RBC % Seg Neutrophils # Seg Neutrophils # Man Lymphocytes # (Manual) Monocytes # (Manual) Eosinophils # (Manual) Basophils # (Manual) PT INR Fibrinogen dRVVT Confirm Interp Factor V Activity POC ABG pH POC ABG pCO2 POC ABG pO2 ABG pO2 ABG HCO3 ABG Base Excess ABG Hemoglobin Oxyhemoglobin Sodium Potassium Chloride 96.8 L Carbon Dioxide BUN 34 H Creatinine 1.9 H Glucose 138 H POC Glucose 142 H 144 H Lactic Acid Calcium Ionized Calcium Phosphorus 5.20 H D Magnesium Direct Bilirubin AST ALT Alkaline Phosphatase Lactate Dehydrogenase Troponin T C-Reactive Protein Total Protein Albumin Prealbumin Triglycerides Cholesterol LDL Cholesterol Direct HDL Cholesterol 25-OH Vitamin D Total PTH Intact Urine pH Urine WBC (Auto) Urine Creatinine Urine Total Protein Fluid Total Protein Vancomycin Trough Rheumatoid Factor Complement C4 Miscellaneous Test Crossmatch 03/20/17 03/20/17 03/20/17 13:55 16:00 23:38 WBC 13.8 H RBC 2.21 L Hgb 6.6 L Hct 21.2 L MCV MCH MCHC RDW 19.7 H Plt Count Lymph % (Auto) [place] % (Auto) Lymph # [place] # 1.0 H Baso # Seg Neutrophils % 72.0 H Seg Neuts % (Manual) Lymphocytes % (Manual) Monocytes % (Manual) Eosinophils % (Manual) Basophils % (Manual) Nucleated RBC % Seg Neutrophils # 9.9 H Seg Neutrophils # Man Lymphocytes # (Manual) Monocytes # (Manual) Eosinophils # (Manual) Basophils # (Manual) PT INR Fibrinogen dRVVT Confirm Interp Factor V Activity POC ABG pH POC ABG pCO2 POC ABG pO2 ABG pO2 ABG HCO3 ABG Base Excess ABG Hemoglobin Oxyhemoglobin Sodium Potassium Chloride Carbon Dioxide BUN Creatinine Glucose POC Glucose 163 H Lactic Acid Calcium Ionized Calcium Phosphorus Magnesium Direct Bilirubin AST ALT Alkaline Phosphatase Lactate Dehydrogenase Troponin T C-Reactive Protein Total Protein Albumin Prealbumin Triglycerides Cholesterol LDL Cholesterol Direct HDL Cholesterol 25-OH Vitamin D Total PTH Intact Urine pH Urine WBC (Auto) Urine Creatinine Urine Total Protein Fluid Total Protein Vancomycin Trough Rheumatoid Factor Complement C4 Miscellaneous Test Crossmatch See Detail 03/20/17 03/21/17 03/21/17 Unknown 04:57 05:20 WBC 15.3 H RBC 2.68 L Hgb 8.8 L Hct 24.6 L MCV MCH 33 H MCHC 36 H RDW 19.4 H Plt Count Lymph % (Auto) [place] % (Auto) Lymph # [place] # 1.1 H Baso # Seg Neutrophils % 76.8 H Seg Neuts % (Manual) Lymphocytes % (Manual) Monocytes % (Manual) Eosinophils % (Manual) Basophils % (Manual) Nucleated RBC % Seg Neutrophils # 11.7 H Seg Neutrophils # Man Lymphocytes # (Manual) Monocytes # (Manual) Eosinophils # (Manual) Basophils # (Manual) PT INR Fibrinogen dRVVT Confirm Interp Factor V Activity POC ABG pH POC ABG pCO2 POC ABG pO2 ABG pO2 ABG HCO3 ABG Base Excess ABG Hemoglobin Oxyhemoglobin Sodium Potassium Chloride 97.7 L Carbon Dioxide BUN 43 H Creatinine 2.2 H Glucose POC Glucose 111 H Lactic Acid Calcium Ionized Calcium Phosphorus 5.30 H Magnesium Direct Bilirubin AST ALT 6 L Alkaline Phosphatase Lactate Dehydrogenase Troponin T C-Reactive Protein Total Protein Albumin 0.9 L Prealbumin Triglycerides Cholesterol LDL Cholesterol Direct HDL Cholesterol 25-OH Vitamin D Total PTH Intact Urine pH Urine WBC (Auto) Urine Creatinine Urine Total Protein Fluid Total Protein Vancomycin Trough Rheumatoid Factor Complement C4 Miscellaneous Test Crossmatch Allied health notes reviewed: nursing
[2017-03-21] MEDS ORDERED: TPN ADULT IV SCH (20:00)
[2017-03-22] MEDS: LOPRESSOR IV SCH ×4 (02:00→20:28)
[2017-03-22] MEDS: FLAGYL 500 MG/100 ML 500 MG/100 ML BAG IV SCH ×3 (06:14→21:01)
[2017-03-22] MEDS: HumuLIN R SUB-Q SCH ×3 (06:32→12:47)
[2017-03-22 07:05] LABS: Calcium 8.8 mg/dL (8.4-10.2)
[2017-03-22] MEDS ORDERED: NACL 0.9% 100 ML IV PRN (09:13)
[2017-03-22] MEDS: DUONEB *Not for PRN Use IH SCH ×4 (09:20→20:07)
--- NOTE | 2017-03-22 11:30 | Progress Note ---
Assessment and Plan Assessment and plan: 47-year-old female patient multiple medical problems, large CVA , hypoxic encephalopathy , status post cardiac arrest , vegetative state , atrial fibrillation , sepsis , aspiration pneumonia , end-stage renal disease on hemodialysis , multiple sacral and lower extremity decubiti requiring debridement , severe protein calorie malnutrition peritonitis / perforation, multiple surgeries, DO NOT RESUSCITATE status,prolonged hospital stay and poor prognosis, --Acute respiratory failure/status post tracheostomy/ventilator dependent/ continue current management --Aspiration pneumonia/managed with multiple antibiotics per ID recommendations , continue current treatment --Status post cardiac arrest/anoxic encephalopathy/vegetative state --Large CVA with mass effect/anoxic brain injury --Perforated bowel/drainage of large fluid collection, continue supportive care --Peritonitis/gastric perforation/status post laparotomy/on TPN --A. fib with rapid ventricular rate/continue amiodarone --Sepsis/recurrent enterococcal infection/ID following/continue current antibiotics --Hypotension/septic shock requiring Levophed, closely monitor --End-stage renal disease; on hemodialysis, nephrology following --Multiple sacral decubiti stage III to stage IV, post debridement, continue wound care --Severe protein calorie malnutrition; continue TPN, supportive care --DO NOT RESUSCITATE status Very poor prognosis, family aware, recommend hospice, family not willing Unable to place in LTAC/SNF, Multiple social issues As the monitor the patient and adjust the management as needed Plan of care discussed with the patient's nurse and case management Critical care time 32 minutes The high probability of a clinically significant, sudden or life threatening deterioration of the [neurologic, CV, respiratory, ID, renal, musculoskeletal] system(s) required my full and direct attention, intervention and personal management. The aggregate critical care time was [32] minutes. This time is in addition to time spent performing reported procedures but includes the following : [x] Data Review and interpretation [x] Patient assessment and monitoring of vital signs [x] Documentation [x] Medication orders and management History Interval history: Patient seen and examined medical records reviewed Post tracheostomy and vent dependent Clinically no change Vital signs reviewed Hospitalist Physical - Constitutional Vitals: Temp Pulse Resp BP Pulse Ox 98.6 F 87 23 93/60 97 03/22/17 08:45 03/22/17 11:15 03/22/17 09:26 03/22/17 11:15 03/22/17 09:21 General appearance: Present: no acute distress, cachectic, other (spontaneous opening of eyes, unresponsive) - EENT Eyes: Present: PERRL, EOM intact ENT: other (tracheostomy on vent) - Respiratory Respiratory effort: normal Respiratory: bilateral: diminished, rales, negative: rhonchi, wheezing - Cardiovascular Rhythm: regular Heart Sounds: Present: S1 & S2 - Extremities Extremities: abnormal (contracted) Extremity abnormal: edema - Abdominal General gastrointestinal: soft, non-tender, non-distended, hypoactive bowel sounds - Integumentary Integumentary: Present: clear, warm - Psychiatric Psychiatric: other (noncommunicative) - Neurologic Neurologic: other (noncommunicative) Results - Labs CBC & Chem 7: 03/21/17 04:57 03/22/17 06:25 Labs: Laboratory Last Values WBC 15.3 K/mm3 (4.5-11.0) H 03/21/17 04:57 RBC 2.68 M/mm3 (3.65-5.03) L 03/21/17 04:57 Hgb 8.8 gm/dl (10.1-14.3) L 03/21/17 04:57 Hct 24.6 % (30.3-42.9) L 03/21/17 04:57 MCV 92 fl (79-97) 03/21/17 04:57 MCH 33 pg (28-32) H 03/21/17 04:57 MCHC 36 % (30-34) H 03/21/17 04:57 RDW 19.4 % (13.2-15.2) H 03/21/17 04:57 Plt Count 185 K/mm3 (140-440) 03/21/17 04:57 Lymph % (Auto) 14.8 % (13.4-35.0) 03/21/17 04:57 [place] % (Auto) 7.1 % (0.0-7.3) 03/21/17 04:57 Eos % (Auto) 0.4 % (0.0-4.3) 03/21/17 04:57 Baso % (Auto) 0.9 % (0.0-1.8) 03/21/17 04:57 Lymph # 2.3 K/mm3 (1.2-5.4) 03/21/17 04:57 [place] # 1.1 K/mm3 (0.0-0.8) H 03/21/17 04:57 Eos # 0.1 K/mm3 (0.0-0.4) 03/21/17 04:57 Baso # 0.1 K/mm3 (0.0-0.1) 03/21/17 04:57 Add Manual Diff Complete 03/14/17 14:30 Total Counted 100 03/14/17 14:30 Seg Neutrophils % 76.8 % (40.0-70.0) H 03/21/17 04:57 Seg Neuts % (Manual) 70.0 % (40.0-70.0) 03/14/17 14:30 Band Neutrophils % 0 % 03/14/17 14:30 Lymphocytes % (Manual) 13.0 % (13.4-35.0) L 03/14/17 14:30 Reactive Lymphs % (Man) 1.0 % 03/14/17 14:30 Monocytes % (Manual) 15.0 % (0.0-7.3) H 03/14/17 14:30 Eosinophils % (Manual) 1.0 % (0.0-4.3) 03/14/17 14:30 Basophils % (Manual) 0 % (0.0-1.8) 03/14/17 14:30 Metamyelocytes % 0 % 03/14/17 14:30 Myelocytes % 0 % 03/14/17 14:30 Promyelocytes % 0 % 03/14/17 14:30 Blast Cells % 0 % 03/14/17 14:30 Nucleated RBC % Not Reportable 03/14/17 14:30 Seg Neutrophils # 11.7 K/mm3 (1.8-7.7) H 03/21/17 04:57 Seg Neutrophils # Man 12.3 K/mm3 (1.8-7.7) H 03/14/17 14:30 Band Neutrophils # 0.0 K/mm3 03/14/17 14:30 Lymphocytes # (Manual) 2.3 K/mm3 (1.2-5.4) 03/14/17 14:30 Abs React Lymphs (Man) 0.2 K/mm3 03/14/17 14:30 Monocytes # (Manual) 2.6 K/mm3 (0.0-0.8) H 03/14/17 14:30 Eosinophils # (Manual) 0.2 K/mm3 (0.0-0.4) 03/14/17 14:30 Basophils # (Manual) 0.0 K/mm3 (0.0-0.1) 03/14/17 14:30 Metamyelocytes # 0.0 K/mm3 03/14/17 14:30 Myelocytes # 0.0 K/mm3 03/14/17 14:30 Promyelocytes # 0.0 K/mm3 03/14/17 14:30 Blast Cells # 0.0 K/mm3 03/14/17 14:30 Pathologist Review 09/13/16 04:00 WBC Morphology Not Reportable 03/14/17 14:30 Hypersegmented Neuts Not Reportable 03/14/17 14:30 Hyposegmented Neuts Not Reportable 03/14/17 14:30 Hypogranular Neuts Not Reportable 03/14/17 14:30 Smudge Cells Not Reportable 03/14/17 14:30 Toxic Granulation Not Reportable 03/14/17 14:30 Toxic Vacuolation Not Reportable 03/14/17 14:30 Dohle Bodies Not Reportable 03/14/17 14:30 Pelger-Huet Anomaly Not Reportable 03/14/17 14:30 Jasmina Rods Not Reportable 03/14/17 14:30 Platelet Estimate Consistent w auto 03/14/17 14:30 Clumped Platelets Not Reportable 03/14/17 14:30 Plt Clumps, EDTA Not Reportable 03/14/17 14:30 Large Platelets Not Reportable 03/14/17 14:30 Giant Platelets Not Reportable 03/14/17 14:30 Platelet Satelliting Not Reportable 03/14/17 14:30 Plt Morphology Comment Not Reportable 03/14/17 14:30 RBC Morphology Not Reportable 03/14/17 14:30 Dimorphic RBCs Not Reportable 03/14/17 14:30 Polychromasia Not Reportable 03/14/17 14:30 Hypochromasia 2+ 03/14/17 14:30 Poikilocytosis Not Reportable 03/14/17 14:30 Anisocytosis 1+ 03/14/17 14:30 Microcytosis Not Reportable 03/14/17 14:30 Macrocytosis Not Reportable 03/14/17 14:30 Spherocytes Not Reportable 03/14/17 14:30 Pappenheimer Bodies Not Reportable 03/14/17 14:30 Sickle Cells Not Reportable 03/14/17 14:30 Target Cells Not Reportable 03/14/17 14:30 Tear Drop Cells Not Reportable 03/14/17 14:30 Ovalocytes Not Reportable 03/14/17 14:30 Stomatocytes 2+ 03/14/17 14:30 Helmet Cells Not Reportable 03/14/17 14:30 Monet-Riesel Bodies Not Reportable 03/14/17 14:30 [place] Rings Not Reportable 03/14/17 14:30 [place] Cells Not Reportable 03/14/17 14:30 Bite Cells Not Reportable 03/14/17 14:30 Crenated Cell Not Reportable 03/14/17 14:30 Elliptocytes Not Reportable 03/14/17 14:30 Acanthocytes (Spur) Not Reportable 03/14/17 14:30 Rouleaux Not Reportable 03/14/17 14:30 Hemoglobin C Crystals Not Reportable 03/14/17 14:30 Schistocytes Not Reportable 03/14/17 14:30 Malaria parasites Not Reportable 03/14/17 14:30 ESR > 140.0 mm/Hr (0-20) 09/08/16 11:48 Jun Bodies Not Reportable 03/14/17 14:30 Hem Pathologist Commnt No 03/14/17 14:30 PT 15.4 Sec. (12.2-14.9) H 01/13/17 15:50 INR 1.16 (0.87-1.13) H 01/13/17 15:50 APTT 33.0 Sec. (24.2-36.6) 10/09/16 03:45 Thrombin Time 16.8 Sec. (15.1-19.6) 09/03/16 00:10 Fibrinogen 750 mg/dl (211-480) H 09/08/16 11:48 Lupus Anticoagulant see below 09/12/16 09:59 LA PTT Baseline See scanned report 09/12/16 09:59 dRVVT Confirm Interp Positive (Negative) H 09/12/16 09:59 dRVVT Screen 50:50 See scanned report 09/12/16 09:59 dRVVT Mix Interpret See scanned report 09/12/16 09:59 Protein C Antigen 122 % (70-140) 09/08/16 15:35 Free Protein S 97 % normal (50-147) 09/08/16 15:35 Total Protein S 109 % (70-140) 09/08/16 15:35 Antithrombin III Ag 100 % (80-120) 09/08/16 15:35 Heparin Anti-Xa, Unfract Negative (Negative) 09/29/16 13:35 Factor V Activity 182 % (65-150) H 09/08/16 15:35 POC ABG pH 7.518 (7.35-7.45) H 03/03/17 20:17 ABG pH 7.450 pH Units (7.350-7.450) 12/05/16 Unknown POC ABG pCO2 28.8 (35-45) L 03/03/17 20: ABG pCO2 29.6 mm Hg 12/05/16 Unknown POC ABG pO2 61 (80-105) L 03/03/17 20: ABG pO2 75.2 mm Hg (80.0-90.0) L 12/05/16 Unknown POC ABG HCO3 23.4 03/03/17 20: ABG HCO3 20.1 mmol/L (20.0-26.0) 12/05/16 Unknown POC ABG Total CO2 24 03/03/17 20:17 POC ABG O2 Sat 94 03/03/17 20: ABG O2 Saturation 96.8 % (95.0-99.0) 12/05/16 Unknown ABG O2 Content 9.9 (0.0-44) 12/05/16 Unknown POC ABG Base Excess 0 03/03/17 20: ABG Base Excess -3.4 mmol/L (-2.0-3.0) L 12/05/16 Unknown ABG Hemoglobin 7.4 gm/dl (12.0-16.0) L 12/05/16 Unknown ABG Carboxyhemoglobin 1.8 % (0.0-5.0) 12/05/16 Unknown ABG Methemoglobin 0.6 % (0.0-1.5) 12/05/16 Unknown Oxyhemoglobin 94.5 % (95.0-99.0) L 12/05/16 Unknown FiO2 40 % 03/03/17 20:17 Sodium 136 mmol/L (137-145) L 03/22/17 06:25 Potassium 4.4 mmol/L (3.6-5.0) 03/22/17 06:25 Chloride 97.7 mmol/L (98-107) L 03/22/17 06:25 Carbon Dioxide 27 mmol/L (22-30) 03/22/17 06:25 Anion Gap 16 mmol/L 03/22/17 06:25 BUN 31 mg/dL (7-17) H 03/22/17 06:25 Creatinine 1.8 mg/dL (0.7-1.2) H 03/22/17 06:25 Estimated GFR 37 ml/min 03/22/17 06:25 BUN/Creatinine Ratio 17 % 03/22/17 06:25 Glucose 102 mg/dL (65-100) H 03/22/17 06:25 POC Glucose 98 (70-105) 03/22/17 05:49 Osmolality 351 Mosm/kg 09/16/16 11:47 Lactic Acid 2.30 mmol/L (0.7-2.0) H* 01/09/17 08:22 Calcium 8.8 mg/dL (8.4-10.2) 03/22/17 06:25 Ionized Calcium 6.0 mg/dL (4.8-5.6) H 02/15/17 19:08 Phosphorus 3.30 mg/dL (2.5-4.5) 03/22/17 06:25 Magnesium 1.90 mg/dL (1.7-2.3) 03/22/17 06:25 Total Bilirubin 0.40 mg/dL (0.1-1.2) 03/20/17 Unknown Direct Bilirubin 0.2 mg/dL (0-0.2) 01/28/17 04:00 Indirect Bilirubin 0.3 mg/dL 01/28/17 04:00 AST 11 units/L (5-40) 03/20/17 Unknown ALT 6 units/L (7-56) L 03/20/17 Unknown Alkaline Phosphatase 97 units/L (35-129) 03/20/17 Unknown Ammonia 27.0 umol/L (25-60) 09/07/16 08:37 Lactate Dehydrogenase 170 units/L (91-180) 01/13/17 15:50 Total Creatine Kinase 121 units/L (30-135) 09/29/16 20:12 CK-MB (CK-2) < 1.0 ng/mL (0.0-4.0) 09/29/16 20:12 CK-MB (CK-2) Rel Index 0.8 (0-4) 09/29/16 20:12 Troponin T 0.204 ng/mL (0.00-0.029) H* 09/29/16 20:12 C-Reactive Protein 19.50 mg/dL (0.00-1.30) H 03/14/17 12:51 Total Protein 6.9 g/dL (6.3-8.2) 03/20/17 Unknown Albumin 0.9 g/dL (3.9-5) L 03/20/17 Unknown Albumin/Globulin Ratio 0.2 % 03/20/17 Unknown Prealbumin 0.110 g/L (0.200-0.400) L 12/29/16 05:15 Triglycerides 94 mg/dL (2-149) 03/20/17 Unknown Cholesterol 31 mg/dL (50-199) L 09/29/16 20:12 LDL Cholesterol Direct 4 mg/dL (50-130) L 09/29/16 20:12 HDL Cholesterol 3 mg/dL (40-59) L 09/29/16 20:12 Cholesterol/HDL Ratio 10.33 % 09/29/16 20:12 Angiotensin Convert Enz See scanned report 09/08/16 11:48 Renin 0.99 ng/mL/h (0.25-5.82) 10/07/16 10:56 Aldosterone <1 ng/dL () 10/07/16 10:56 Aldosterone/Renin Dir see below 10/07/16 10:56 Serotonin Release Assay See scanned report 09/29/16 13:35 25-OH Vitamin D Total 13 ng/mL (30-100) L 02/15/17 19:08 25-Hydroxy Vitamin D2 . 02/15/17 19:08 25-Hydroxy Vitamin D3 . 02/15/17 19:08 TSH 1.010 mlU/mL (0.270-4.200) 09/07/16 08:37 HCG, Qual Negative (Negative) 09/03/16 00:10 PTH Intact 10.88 pg/mL (15-65) L 02/15/17 19:08 Total Cortisol 18.2 mcg/dL () 02/02/17 20:09 Urine Color Yellow (Yellow) 11/05/16 13:09 Urine Turbidity Clear (Clear) 11/05/16 13:09 Urine pH 9.0 (5.0-7.0) H 11/05/16 13:09 Ur Specific [place] 1.011 (1.003-1.030) 11/05/16 13:09 Urine Protein 100 mg/dl mg/dL (Negative) 11/05/16 13:09 Urine Glucose (UA) Neg mg/dL (Negative) 11/05/16 13:09 Urine Ketones Neg mg/dL (Negative) 11/05/16 13:09 Urine Blood Neg (Negative) 11/05/16 13:09 Urine Nitrite Neg (Negative) 11/05/16 13:09 Urine Bilirubin Neg (Negative) 11/05/16 13:09 Urine Urobilinogen < 2.0 mg/dL (<2.0) 11/05/16 13:09 Ur Leukocyte Esterase Neg (Negative) 11/05/16 13:09 Urine WBC (Auto) 4.0 /HPF (0.0-6.0) 11/05/16 13:09 Urine RBC (Auto) 1.0 /HPF (0.0-6.0) 11/05/16 13:09 U Epithel Cells (Auto) 1.0 /HPF (0-13.0) 10/07/16 18:30 Urine Bacteria (Auto) 4+ /HPF (Negative) 11/05/16 13:09 Urine WBC Clumps 2+ /HPF 09/07/16 02:47 Hyaline Casts 4 /LPF 09/07/16 02:47 Urine Mucus Few /HPF 10/07/16 18:30 Urine Yeast (Budding) 3+ /HPF 10/07/16 18:30 Urine Eosinophils None seen (None Seen) 09/07/16 16:00 Urine Total Volume 950 11/12/16 10:18 Urine Creatinine 19.7 mg/dL (0.1-20.0) 11/12/16 10:18 Height (in) 65.0 inches 11/12/16 10:18 Weight (lb) 181.0 lbs 11/12/16 10:18 Creatinine Clearance 5 11/12/16 10:18 Urine Sodium 36 mEq/L 09/16/16 19:19 Urine Total Protein 16 mg/dL (5-11.8) H 09/16/16 19:19 Fluid Type Pleural 01/13/17 12:10 Fluid Color Yellow 01/13/17 12:10 Fluid Appearance Hazy 01/13/17 12:10 Fluid WBC 182 /mm3 01/13/17 12:10 Fluid RBC 41 /mm3 01/13/17 12:10 Fluid Seg Neutrophils 85.0 % 01/13/17 12:10 Fluid Lymphocytes 8.0 % 01/13/17 12:10 Fluid Reactive Lymphs 0 % 01/13/17 12:10 Fluid Monocytes 6.0 % 01/13/17 12:10 Fluid Eosinophils 1.0 % 01/13/17 12:10 Fluid Basophils 0 % 01/13/17 12:10 Fluid Total Protein 3.0 (15.0-45.0) L 01/13/17 12:10 Fluid LDH 1322 01/13/17 12:10 Fluid Comment Diff performed 01/13/17 12:10 Vancomycin Trough 2.3 ug/mL (5.0-20.0) L 09/21/16 13:00 Random Vancomycin 26.0 ug/mL (0-40.0) 03/13/17 05:39 Urine Opiates Screen Presumptive negative 09/03/16 15:11 Urine Methadone Screen Presumptive positive 09/03/16 15:11 Ur Barbiturates Screen Presumptive positive 09/03/16 15:11 Ur Phencyclidine Scrn Presumptive negative 09/03/16 15:11 Ur Amphetamines Screen Presumptive negative 09/03/16 15:11 U Benzodiazepines Scrn Presumptive negative 09/03/16 15:11 Urine Cocaine Screen Presumptive negative 09/03/16 15:11 U Marijuana (THC) Screen Presumptive positive 09/03/16 15:11 Drugs of Abuse Note Disclamer 09/03/16 15:11 Rheumatoid Factor 24 IU/ml (0-13) H 09/08/16 11:48 SAHIL Screen Negative (Negative) 09/07/16 09:20 Proteinase 3 (PR3) Ab <1.0 AI (<1.0) 09/07/16 09:20 Myeloperoxidase Ab <1.0 AI (<1.0) 09/07/16 09:20 Sjogren's Antibody <1.0 AI (<1.0) 09/08/16 15:35 Scl-70 Scleroderma Ab <1.0 AI (<1.0) 09/08/16 15:35 Centromere B Antibody <1.0 AI (<1.0) 09/08/16 12:02 Heparin-induced Plt Ab Negative (Negative) 09/29/16 13:35 UF Heparin High Dose 11 % Release 09/29/16 13:35 SUDHIR UFH Low Dose 0.1 6 % Release 09/29/16 13:35 SUDHIR UFH Low Dose 0.5 8 % Release 09/29/16 13:35 Cardiolipid IgG Ab <14 GPL (<=14) 09/12/16 09:59 Cardiolipid IgA Ab <11 APL (<=11) 09/12/16 09:59 Cardiolipid IgM Ab <12 MPL (<=12) 09/12/16 09:59 Complement C3 148 mg/dL (90-180) 09/07/16 09:20 Complement C4 58 mg/dL (16-47) H 09/07/16 09:20 RPR Nonreactive (Nonreactive) 09/08/16 11:48 Hepatitis A IgM Ab Non-reactive (NonReactive) 09/24/16 14:40 Hep Bs Antigen Non-reactive (Negative) 09/24/16 14:40 Hep B Core IgM Ab Non-reactive (NonReactive) 09/24/16 14:40 Hepatitis C Antibody Non-reactive (NonReactive) 09/24/16 14:40 HIV 1&2 Antibody Rapid Non react (Non React) 09/08/16 11:48 HIV P24 Antigen Non react (Non React) 09/08/16 11:48 Miscellaneous Test Flexitest 1 H 01/09/17 18:45 Blood Type A POSITIVE 03/20/17 16:00 Antibody Screen Negative 03/20/17 16:00 DELORIS Antibody Screen Negative 11/24/16 11:20 Crossmatch See Detail 03/20/17 16:00
[2017-03-22] MEDS: HEPARIN SUB-Q SCH ×2 (12:47→21:40)
[2017-03-22] MEDS: PEPCID IV SCH (12:47)
[2017-03-22] MEDS: MAXIPIME 1 GM in NACL 0.9% 20 ML IV SCH (12:48)
[2017-03-22] MEDS: HEPARIN IV PRN (12:49)
--- NOTE | 2017-03-22 12:55 | Progress Note ---
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 Patient's serum creatinine is noted to be low - due to wasting of muscle mass. Needs to be maintained on dialysis at this time. * Abx per ID * Adjust Ca bath with dialysis * Rate control per cardiology * Transfuse pRBC per primary team. Epogen TIW prn * Vent management per pulm/CCM * Pressors prn for MAP>65 * Dose medications for renal function Subjective Date of service: 03/22/17 Principal diagnosis: Acute resp failure on MVS; S/P Acute CVA; Acute Encephalopathy; JUANITA Interval history: 24h events reviewed. Objective - Vital Signs Vital signs: Vital Signs - 12hr 03/22/17 03/22/17 03/22/17 01:00 01:16 01:30 Temperature Pulse Rate 79 78 79 Pulse Rate [ Apical] Pulse Rate [ From Monitor] Pulse Rate [ Left Dorsalis Pedis] Pulse Rate [ Left Radial] Pulse Rate [ Right Dorsalis Pedis] Pulse Rate [ Right Radial] Pulse Rate [ Throughout] Respiratory 12 12 12 Rate Respiratory Rate [ Throughout] Blood Pressure 102/69 102/69 106/66 O2 Sat by Pulse 100 100 Oximetry O2 Sat by Pulse Oximetry [ Assessment] O2 Sat by Pulse Oximetry [ Throughout] 03/22/17 03/22/17 03/22/17 01:46 02:00 02:16 Temperature Pulse Rate 78 76 76 Pulse Rate [ Apical] Pulse Rate [ From Monitor] Pulse Rate [ Left Dorsalis Pedis] Pulse Rate [ Left Radial] Pulse Rate [ Right Dorsalis Pedis] Pulse Rate [ Right Radial] Pulse Rate [ Throughout] Respiratory 12 12 12 Rate Respiratory Rate [ Throughout] Blood Pressure 106/66 87/47 87/47 O2 Sat by Pulse 100 99 100 Oximetry O2 Sat by Pulse Oximetry [ Assessment] O2 Sat by Pulse Oximetry [ Throughout] 03/22/17 03/22/17 03/22/17 02:30 02:46 03:00 Temperature Pulse Rate 78 76 79 Pulse Rate [ Apical] Pulse Rate [ From Monitor] Pulse Rate [ Left Dorsalis Pedis] Pulse Rate [ Left Radial] Pulse Rate [ Right Dorsalis Pedis] Pulse Rate [ Right Radial] Pulse Rate [ Throughout] Respiratory 13 14 14 Rate Respiratory Rate [ Throughout] Blood Pressure 87/47 87/47 120/77 O2 Sat by Pulse 100 100 99 Oximetry O2 Sat by Pulse Oximetry [ Assessment] O2 Sat by Pulse Oximetry [ Throughout] 03/22/17 03/22/17 03/22/17 03:16 03:30 03:46 Temperature Pulse Rate 83 83 83 Pulse Rate [ Apical] Pulse Rate [ From Monitor] Pulse Rate [ Left Dorsalis Pedis] Pulse Rate [ Left Radial] Pulse Rate [ Right Dorsalis Pedis] Pulse Rate [ Right Radial] Pulse Rate [ Throughout] Respiratory 13 12 18 Rate Respiratory Rate [ Throughout] Blood Pressure 120/77 120/77 120/77 O2 Sat by Pulse 100 100 93 Oximetry O2 Sat by Pulse Oximetry [ Assessment] O2 Sat by Pulse Oximetry [ Throughout] 03/22/17 03/22/17 03/22/17 04:00 04:16 04:30 Temperature 96.9 F L Pulse Rate 80 84 84 Pulse Rate [ 98 H Apical] Pulse Rate [ 98 H From Monitor] Pulse Rate [ 98 H Left Dorsalis Pedis] Pulse Rate [ 98 H Left Radial] Pulse Rate [ 98 H Right Dorsalis Pedis] Pulse Rate [ 98 H Right Radial] Pulse Rate [ Throughout] Respiratory 15 20 13 Rate Respiratory Rate [ Throughout] Blood Pressure 104/65 104/65 104/65 O2 Sat by Pulse 100 98 98 Oximetry O2 Sat by Pulse Oximetry [ Assessment] O2 Sat by Pulse Oximetry [ Throughout] 03/22/17 03/22/17 03/22/17 04:46 05:00 05:16 Temperature Pulse Rate 82 83 83 Pulse Rate [ Apical] Pulse Rate [ From Monitor] Pulse Rate [ Left Dorsalis Pedis] Pulse Rate [ Left Radial] Pulse Rate [ Right Dorsalis Pedis] Pulse Rate [ Right Radial] Pulse Rate [ Throughout] Respiratory 12 13 15 Rate Respiratory Rate [ Throughout] Blood Pressure 104/65 114/76 114/76 O2 Sat by Pulse 100 99 94 Oximetry O2 Sat by Pulse Oximetry [ Assessment] O2 Sat by Pulse Oximetry [ Throughout] 03/22/17 03/22/17 03/22/17 05:30 05:46 06:00 Temperature Pulse Rate 81 79 82 Pulse Rate [ Apical] Pulse Rate [ From Monitor] Pulse Rate [ Left Dorsalis Pedis] Pulse Rate [ Left Radial] Pulse Rate [ Right Dorsalis Pedis] Pulse Rate [ Right Radial] Pulse Rate [ Throughout] Respiratory 12 13 14 Rate Respiratory Rate [ Throughout] Blood Pressure 114/76 114/76 99/65 O2 Sat by Pulse 100 99 97 Oximetry O2 Sat by Pulse Oximetry [ Assessment] O2 Sat by Pulse Oximetry [ Throughout] 03/22/17 03/22/17 03/22/17 06:16 06:30 06:46 Temperature Pulse Rate 91 H 81 81 Pulse Rate [ Apical] Pulse Rate [ From Monitor] Pulse Rate [ Left Dorsalis Pedis] Pulse Rate [ Left Radial] Pulse Rate [ Right Dorsalis Pedis] Pulse Rate [ Right Radial] Pulse Rate [ Throughout] Respiratory 11 L 12 13 Rate Respiratory Rate [ Throughout] Blood Pressure 114/76 114/76 99/65 O2 Sat by Pulse 100 100 100 Oximetry O2 Sat by Pulse Oximetry [ Assessment] O2 Sat by Pulse Oximetry [ Throughout] 03/22/17 03/22/17 03/22/17 07:00 07:16 07:30 Temperature Pulse Rate 83 81 80 Pulse Rate [ Apical] Pulse Rate [ From Monitor] Pulse Rate [ Left Dorsalis Pedis] Pulse Rate [ Left Radial] Pulse Rate [ Right Dorsalis Pedis] Pulse Rate [ Right Radial] Pulse Rate [ Throughout] Respiratory 14 13 13 Rate Respiratory Rate [ Throughout] Blood Pressure 102/59 102/59 102/59 O2 Sat by Pulse 99 100 100 Oximetry O2 Sat by Pulse Oximetry [ Assessment] O2 Sat by Pulse Oximetry [ Throughout] 03/22/17 03/22/17 03/22/17 07:46 07:55 08:00 Temperature 98.6 F Pulse Rate 81 79 Pulse Rate [ 79 Apical] Pulse Rate [ 79 From Monitor] Pulse Rate [ Left Dorsalis Pedis] Pulse Rate [ Left Radial] Pulse Rate [ Right Dorsalis Pedis] Pulse Rate [ Right Radial] Pulse Rate [ Throughout] Respiratory 12 16 13 Rate Respiratory Rate [ Throughout] Blood Pressure 102/59 90/59 O2 Sat by Pulse 100 100 100 Oximetry O2 Sat by Pulse Oximetry [ Assessment] O2 Sat by Pulse Oximetry [ Throughout] 03/22/17 03/22/17 03/22/17 08:03 08:16 08:30 Temperature Pulse Rate 78 86 82 Pulse Rate [ Apical] Pulse Rate [ From Monitor] Pulse Rate [ Left Dorsalis Pedis] Pulse Rate [ Left Radial] Pulse Rate [ Right Dorsalis Pedis] Pulse Rate [ Right Radial] Pulse Rate [ Throughout] Respiratory 21 28 H Rate Respiratory Rate [ Throughout] Blood Pressure 90/59 102/59 102/59 O2 Sat by Pulse 100 99 Oximetry O2 Sat by Pulse Oximetry [ Assessment] O2 Sat by Pulse Oximetry [ Throughout] 03/22/17 03/22/17 03/22/17 08:45 08:46 09:00 Temperature 98.6 F Pulse Rate 80 84 83 Pulse Rate [ Apical] Pulse Rate [ From Monitor] Pulse Rate [ Left Dorsalis Pedis] Pulse Rate [ Left Radial] Pulse Rate [ Right Dorsalis Pedis] Pulse Rate [ Right Radial] Pulse Rate [ Throughout] Respiratory 28 H 32 H 25 H Rate Respiratory Rate [ Throughout] Blood Pressure 118/74 102/59 115/74 O2 Sat by Pulse 98 97 Oximetry O2 Sat by Pulse Oximetry [ Assessment] O2 Sat by Pulse Oximetry [ Throughout] 03/22/17 03/22/17 03/22/17 09:15 09:21 09:26 Temperature Pulse Rate 80 83 Pulse Rate [ Apical] Pulse Rate [ From Monitor] Pulse Rate [ Left Dorsalis Pedis] Pulse Rate [ Left Radial] Pulse Rate [ Right Dorsalis Pedis] Pulse Rate [ Right Radial] Pulse Rate [ 85 Throughout] Respiratory 25 H Rate Respiratory 23 Rate [ Throughout] Blood Pressure 109/72 109/72 O2 Sat by Pulse 98 97 Oximetry O2 Sat by Pulse 97 Oximetry [ Assessment] O2 Sat by Pulse Oximetry [ Throughout] 03/22/17 03/22/17 03/22/17 09:30 09:45 10:00 Temperature Pulse Rate 77 85 86 Pulse Rate [ Apical] Pulse Rate [ From Monitor] Pulse Rate [ Left Dorsalis Pedis] Pulse Rate [ Left Radial] Pulse Rate [ Right Dorsalis Pedis] Pulse Rate [ Right Radial] Pulse Rate [ Throughout] Respiratory 33 H 21 24 Rate Respiratory Rate [ Throughout] Blood Pressure 106/74 114/72 109/69 O2 Sat by Pulse 100 Oximetry O2 Sat by Pulse Oximetry [ Assessment] O2 Sat by Pulse Oximetry [ Throughout] 03/22/17 03/22/17 03/22/17 10:15 10:30 10:32 Temperature Pulse Rate 83 85 84 Pulse Rate [ Apical] Pulse Rate [ From Monitor] Pulse Rate [ Left Dorsalis Pedis] Pulse Rate [ Left Radial] Pulse Rate [ Right Dorsalis Pedis] Pulse Rate [ Right Radial] Pulse Rate [ Throughout] Respiratory 22 33 H Rate Respiratory Rate [ Throughout] Blood Pressure 107/70 102/64 107/70 O2 Sat by Pulse 97 Oximetry O2 Sat by Pulse Oximetry [ Assessment] O2 Sat by Pulse Oximetry [ Throughout] 03/22/17 03/22/17 03/22/17 10:45 11:00 11:02 Temperature Pulse Rate 85 87 85 Pulse Rate [ Apical] Pulse Rate [ From Monitor] Pulse Rate [ Left Dorsalis Pedis] Pulse Rate [ Left Radial] Pulse Rate [ Right Dorsalis Pedis] Pulse Rate [ Right Radial] Pulse Rate [ Throughout] Respiratory 23 29 H Rate Respiratory Rate [ Throughout] Blood Pressure 99/67 101/66 100/65 O2 Sat by Pulse 100 Oximetry O2 Sat by Pulse Oximetry [ Assessment] O2 Sat by Pulse Oximetry [ Throughout] 03/22/17 03/22/17 03/22/17 11:15 11:30 11:31 Temperature Pulse Rate 88 85 86 Pulse Rate [ Apical] Pulse Rate [ From Monitor] Pulse Rate [ Left Dorsalis Pedis] Pulse Rate [ Left Radial] Pulse Rate [ Right Dorsalis Pedis] Pulse Rate [ Right Radial] Pulse Rate [ Throughout] Respiratory 31 H 25 H Rate Respiratory Rate [ Throughout] Blood Pressure 93/60 107/69 107/69 O2 Sat by Pulse 94 99 Oximetry O2 Sat by Pulse Oximetry [ Assessment] O2 Sat by Pulse Oximetry [ Throughout] 03/22/17 03/22/17 03/22/17 11:45 12:00 12:03 Temperature Pulse Rate 88 84 387 H Pulse Rate [ Apical] Pulse Rate [ From Monitor] Pulse Rate [ Left Dorsalis Pedis] Pulse Rate [ Left Radial] Pulse Rate [ Right Dorsalis Pedis] Pulse Rate [ Right Radial] Pulse Rate [ Throughout] Respiratory 32 H 36 H Rate Respiratory Rate [ Throughout] Blood Pressure 107/72 101/69 101/69 O2 Sat by Pulse 100 97 Oximetry O2 Sat by Pulse Oximetry [ Assessment] O2 Sat by Pulse Oximetry [ Throughout] 03/22/17 03/22/17 03/22/17 12:15 12:32 12:50 Temperature 97.5 F L Pulse Rate 87 90 89 Pulse Rate [ Apical] Pulse Rate [ From Monitor] Pulse Rate [ Left Dorsalis Pedis] Pulse Rate [ Left Radial] Pulse Rate [ Right Dorsalis Pedis] Pulse Rate [ Right Radial] Pulse Rate [ Throughout] Respiratory 26 H Rate Respiratory Rate [ Throughout] Blood Pressure 109/67 121/82 117/67 O2 Sat by Pulse Oximetry O2 Sat by Pulse Oximetry [ Assessment] O2 Sat by Pulse 99 Oximetry [ Throughout] - General Appearance General appearance: chronically ill, frail EENT: ATNC Neck: other (trach) Respiratory: Present: Other (coarse breath sounds bilaterally) Cardiology: regular, S1S2 Gastrointestinal: hypoactive bowel sounds Neurologic: other (does not respond to tactile/verbal stimuli) Musculoskeletal: other (dependent edema) Psychiatric: cooperative - Lab 03/21/17 04:57 03/22/17 06:25 Most recent lab results ABG pH 7.450 pH Units (7.350-7.450) 12/05/16 Unknown ABG pCO2 29.6 mm Hg 12/05/16 Unknown ABG pO2 75.2 mm Hg (80.0-90.0) L 12/05/16 Unknown ABG HCO3 20.1 mmol/L (20.0-26.0) 12/05/16 Unknown ABG O2 Saturation 96.8 % (95.0-99.0) 12/05/16 Unknown Calcium 8.8 mg/dL (8.4-10.2) 03/22/17 06:25 Phosphorus 3.30 mg/dL (2.5-4.5) 03/22/17 06:25 Magnesium 1.90 mg/dL (1.7-2.3) 03/22/17 06:25 Urine Creatinine 19.7 mg/dL (0.1-20.0) 11/12/16 10:18 Urine Sodium 36 mEq/L 09/16/16 19:19 Urine Total Protein 16 mg/dL (5-11.8) H 09/16/16 19:19
[2017-03-22] MEDS ORDERED: NACL 0.9% 500 ML 500 ML ONE (13:13)
--- NOTE | 2017-03-22 14:17 | Progress Note ---
Assessment and Plan Patient is 46-year-old woman with a history of hypertension, diabetes mellitus, asthma, hyperlipidemia, chronic kidney disease and anxiety, who was brought in by family because she couldn't get her words out, her face was also twisted, she was admitted for acute CVA and accelerated hypertension, she had a hx of poor adherence with her medications, and uncontrolled hypertension. Patient's SBP on admission was noted be greater than 260. TPA was started but this it was discontinued after 5 minutes because her blood pressure became uncontrolled. The TPA was not initiated again because the patient was outside the TPA window. Patient has had a prolonged hospital stay complicated with recurrent severe sepsis. Patient with most recent event also status post cardiac arrest on 11/21/16 , with CPR and ROSC. Acute on chronic Hypoxemic Respiratory Failure Sepsis -recurrent Intrabdominal abscess s/p peritoneal drain per IR s/p tracheostomy Hypertension Atrial Fibrillation with RVR Acute encephalopathy s/p CVA Oropharyngeal dysphagia Enterococcal bacteremia Sacral Decubitus Ulcer- unstageable s/p debridement Anemia Obesity JUANITA now on hemodialysis prn Enteric Fistula - VAP bundle addressed - continue NGT to LIS - continue wound care/wound vac per WCT - Vasopressor if MAP falls < 65mmHg - keep on with daily PSV trials and / or T-piece as tolerated - continue TPN administration (continue TPN; NPO except for meds) - continue airway clearance and secretion management - continue to wean FiO2 for sats > 94% - continue to monitor hemodynamics closely - continue HD/UF per nephrology - continue to follow electrolytes and correct as necessary - continue GI & VTE prophylaxis Transfuse 1 unit PRBC as needed to keep HgH>7g/dL .....she remains critically ill on life sustaining interventions including MVS and at risk for further deterioration including ...senior living prognosis remains poor ...DNR in the event of cardiac arrest - Patient Problems (1) Acute respiratory failure with hypoxia Current Visit: Yes Status: Acute (2) Acute blood loss anemia Current Visit: Yes Status: Resolved (3) Acute CVA (cerebrovascular accident) Current Visit: Yes Status: Acute (4) Chronic renal insufficiency Current Visit: Yes Status: Acute (5) Uncontrolled hypertension Current Visit: Yes Status: Acute (6) Leukocytosis (leucocytosis) Current Visit: Yes Status: Acute Qualifiers: Leukocytosis type: leukemoid reaction Qualified Code(s): D72.823 - Leukemoid reaction (7) Dislodged gastrostomy tube Current Visit: Yes Status: Acute (8) Fungemia Current Visit: Yes Status: Resolved (9) Cardiopulmonary arrest with successful resuscitation Current Visit: Yes Status: Acute Subjective Date of service: 03/22/17 Principal diagnosis: Acute resp failure on MVS; S/P Acute CVA; Acute Encephalopathy; JUANITA Interval history: Patient is seen today for: Acute resp failure on MVS; S/P Acute CVA; Acute Encephalopathy; JUANITA Seen and examined at bedside; 24hour events reviewed; nursing and respiratory care staff consulted; no adverse overnight events reported to me; she remains chronically critically ill. No fevers Off norepinephrine and WCC trending down since bed side intra abdominal drain was placed. Discussed during interdisciplinary ICU team rounds Objective - Exam Narrative Exam: General appearance: alert non communicative, on the vent via trach in mild resp distress, no following commands Eyes: anicteric sclera, moist conjunctivae; PERRLA HENT: Atraumatic; oropharynx limited; Normal external ears. +NGT with greenish secretion Neck: +trach in place; supple, no thyromegaly or lymphadenopathy Lungs: brit coarse BS CV: tachy Abdomen: Soft, tender, +old PEG site no drainage. +iliostomy. Right sided Surgical site x 2 with ostomy bags. +drain with copious purulence Extremities: +peripheral edema Skin: sacral area wounds - per wound care Sacrum wound measuring 9x11cm. Necrotic tissue noted on the wound edges and in the wound bed Now with a wound VAC Psych: somnolent . Neuro: alert non verbal on the vent. Lines: PICC / gutierrez Vital Signs - 12hr 03/22/17 03/22/17 03/22/17 02:30 02:46 03:00 Temperature Pulse Rate 78 76 79 Pulse Rate [ Apical] Pulse Rate [ From Monitor] Pulse Rate [ Left Dorsalis Pedis] Pulse Rate [ Left Radial] Pulse Rate [ Right Dorsalis Pedis] Pulse Rate [ Right Radial] Pulse Rate [ Throughout] Respiratory 13 14 14 Rate Respiratory Rate [ Throughout] Blood Pressure 87/47 87/47 120/77 O2 Sat by Pulse 100 100 99 Oximetry O2 Sat by Pulse Oximetry [ Assessment] O2 Sat by Pulse Oximetry [ Throughout] 01/31/18 01/31/18 01/31/18 03:16 03:30 03:46 Temperature Pulse Rate 83 83 83 Pulse Rate [ Apical] Pulse Rate [ From Monitor] Pulse Rate [ Left Dorsalis Pedis] Pulse Rate [ Left Radial] Pulse Rate [ Right Dorsalis Pedis] Pulse Rate [ Right Radial] Pulse Rate [ Throughout] Respiratory 13 12 18 Rate Respiratory Rate [ Throughout] Blood Pressure 120/77 120/77 120/77 O2 Sat by Pulse 100 100 93 Oximetry O2 Sat by Pulse Oximetry [ Assessment] O2 Sat by Pulse Oximetry [ Throughout] 03/22/17 03/22/17 03/22/17 04:00 04:16 04:30 Temperature 96.9 F L Pulse Rate 80 84 84 Pulse Rate [ 98 H Apical] Pulse Rate [ 98 H From Monitor] Pulse Rate [ 98 H Left Dorsalis Pedis] Pulse Rate [ 98 H Left Radial] Pulse Rate [ 98 H Right Dorsalis Pedis] Pulse Rate [ 98 H Right Radial] Pulse Rate [ Throughout] Respiratory 15 20 13 Rate Respiratory Rate [ Throughout] Blood Pressure 104/65 104/65 104/65 O2 Sat by Pulse 100 98 98 Oximetry O2 Sat by Pulse Oximetry [ Assessment] O2 Sat by Pulse Oximetry [ Throughout] 03/22/17 03/22/17 03/22/17 04:46 05:00 05:16 Temperature Pulse Rate 82 83 83 Pulse Rate [ Apical] Pulse Rate [ From Monitor] Pulse Rate [ Left Dorsalis Pedis] Pulse Rate [ Left Radial] Pulse Rate [ Right Dorsalis Pedis] Pulse Rate [ Right Radial] Pulse Rate [ Throughout] Respiratory 12 13 15 Rate Respiratory Rate [ Throughout] Blood Pressure 104/65 114/76 114/76 O2 Sat by Pulse 100 99 94 Oximetry O2 Sat by Pulse Oximetry [ Assessment] O2 Sat by Pulse Oximetry [ Throughout] 03/22/17 03/22/17 03/22/17 05:30 05:46 06:00 Temperature Pulse Rate 81 79 82 Pulse Rate [ Apical] Pulse Rate [ From Monitor] Pulse Rate [ Left Dorsalis Pedis] Pulse Rate [ Left Radial] Pulse Rate [ Right Dorsalis Pedis] Pulse Rate [ Right Radial] Pulse Rate [ Throughout] Respiratory 12 13 14 Rate Respiratory Rate [ Throughout] Blood Pressure 114/76 114/76 99/65 O2 Sat by Pulse 100 99 97 Oximetry O2 Sat by Pulse Oximetry [ Assessment] O2 Sat by Pulse Oximetry [ Throughout] 0103/22/17 03/22/17 06:16 06:30 06:46 Temperature Pulse Rate 91 H 81 81 Pulse Rate [ Apical] Pulse Rate [ From Monitor] Pulse Rate [ Left Dorsalis Pedis] Pulse Rate [ Left Radial] Pulse Rate [ Right Dorsalis Pedis] Pulse Rate [ Right Radial] Pulse Rate [ Throughout] Respiratory 11 L 12 13 Rate Respiratory Rate [ Throughout] Blood Pressure 114/76 114/76 99/65 O2 Sat by Pulse 100 100 100 Oximetry O2 Sat by Pulse Oximetry [ Assessment] O2 Sat by Pulse Oximetry [ Throughout] 03/22/17 03/22/17 03/22/17 07:00 07:16 07:30 Temperature Pulse Rate 83 81 80 Pulse Rate [ Apical] Pulse Rate [ From Monitor] Pulse Rate [ Left Dorsalis Pedis] Pulse Rate [ Left Radial] Pulse Rate [ Right Dorsalis Pedis] Pulse Rate [ Right Radial] Pulse Rate [ Throughout] Respiratory 14 13 13 Rate Respiratory Rate [ Throughout] Blood Pressure 102/59 102/59 102/59 O2 Sat by Pulse 99 100 100 Oximetry O2 Sat by Pulse Oximetry [ Assessment] O2 Sat by Pulse Oximetry [ Throughout] 03/22/17 03/22/17 03/22/17 07:46 07:55 08:00 Temperature 98.6 F Pulse Rate 81 79 Pulse Rate [ 79 Apical] Pulse Rate [ 79 From Monitor] Pulse Rate [ Left Dorsalis Pedis] Pulse Rate [ Left Radial] Pulse Rate [ Right Dorsalis Pedis] Pulse Rate [ Right Radial] Pulse Rate [ Throughout] Respiratory 12 16 13 Rate Respiratory Rate [ Throughout] Blood Pressure 102/59 90/59 O2 Sat by Pulse 100 100 100 Oximetry O2 Sat by Pulse Oximetry [ Assessment] O2 Sat by Pulse Oximetry [ Throughout] 03/22/17 03/22/17 03/22/17 08:03 08:16 08:30 Temperature Pulse Rate 78 86 82 Pulse Rate [ Apical] Pulse Rate [ From Monitor] Pulse Rate [ Left Dorsalis Pedis] Pulse Rate [ Left Radial] Pulse Rate [ Right Dorsalis Pedis] Pulse Rate [ Right Radial] Pulse Rate [ Throughout] Respiratory 21 28 H Rate Respiratory Rate [ Throughout] Blood Pressure 90/59 102/59 102/59 O2 Sat by Pulse 100 99 Oximetry O2 Sat by Pulse Oximetry [ Assessment] O2 Sat by Pulse Oximetry [ Throughout] 01/03/22/17 03/22/17 08:45 08:46 09:00 Temperature 98.6 F Pulse Rate 80 84 83 Pulse Rate [ Apical] Pulse Rate [ From Monitor] Pulse Rate [ Left Dorsalis Pedis] Pulse Rate [ Left Radial] Pulse Rate [ Right Dorsalis Pedis] Pulse Rate [ Right Radial] Pulse Rate [ Throughout] Respiratory 28 H 32 H 25 H Rate Respiratory Rate [ Throughout] Blood Pressure 118/74 102/59 115/74 O2 Sat by Pulse 98 97 Oximetry O2 Sat by Pulse Oximetry [ Assessment] O2 Sat by Pulse Oximetry [ Throughout] 03/22/17 03/22/17 03/22/17 09:15 09:21 09:26 Temperature Pulse Rate 80 83 Pulse Rate [ Apical] Pulse Rate [ From Monitor] Pulse Rate [ Left Dorsalis Pedis] Pulse Rate [ Left Radial] Pulse Rate [ Right Dorsalis Pedis] Pulse Rate [ Right Radial] Pulse Rate [ 85 Throughout] Respiratory 25 H Rate Respiratory 23 Rate [ Throughout] Blood Pressure 109/72 109/72 O2 Sat by Pulse 98 97 Oximetry O2 Sat by Pulse 97 Oximetry [ Assessment] O2 Sat by Pulse Oximetry [ Throughout] 03/22/17 03/22/17 03/22/17 09:30 09:45 10:00 Temperature Pulse Rate 77 85 86 Pulse Rate [ Apical] Pulse Rate [ From Monitor] Pulse Rate [ Left Dorsalis Pedis] Pulse Rate [ Left Radial] Pulse Rate [ Right Dorsalis Pedis] Pulse Rate [ Right Radial] Pulse Rate [ Throughout] Respiratory 33 H 21 24 Rate Respiratory Rate [ Throughout] Blood Pressure 106/74 114/72 109/69 O2 Sat by Pulse 100 Oximetry O2 Sat by Pulse Oximetry [ Assessment] O2 Sat by Pulse Oximetry [ Throughout] 03/22/17 03/22/17 03/22/17 10:15 10:30 10:32 Temperature Pulse Rate 83 85 84 Pulse Rate [ Apical] Pulse Rate [ From Monitor] Pulse Rate [ Left Dorsalis Pedis] Pulse Rate [ Left Radial] Pulse Rate [ Right Dorsalis Pedis] Pulse Rate [ Right Radial] Pulse Rate [ Throughout] Respiratory 22 33 H Rate Respiratory Rate [ Throughout] Blood Pressure 107/70 102/64 107/70 O2 Sat by Pulse 97 Oximetry O2 Sat by Pulse Oximetry [ Assessment] O2 Sat by Pulse Oximetry [ Throughout] 03/22/17 03/22/17 03/22/17 10:45 11:00 11:02 Temperature Pulse Rate 85 87 85 Pulse Rate [ Apical] Pulse Rate [ From Monitor] Pulse Rate [ Left Dorsalis Pedis] Pulse Rate [ Left Radial] Pulse Rate [ Right Dorsalis Pedis] Pulse Rate [ Right Radial] Pulse Rate [ Throughout] Respiratory 23 29 H Rate Respiratory Rate [ Throughout] Blood Pressure 99/67 101/66 100/65 O2 Sat by Pulse 100 Oximetry O2 Sat by Pulse Oximetry [ Assessment] O2 Sat by Pulse Oximetry [ Throughout] 03/22/17 03/22/17 03/22/17 11:15 11:30 11:31 Temperature Pulse Rate 88 85 86 Pulse Rate [ Apical] Pulse Rate [ From Monitor] Pulse Rate [ Left Dorsalis Pedis] Pulse Rate [ Left Radial] Pulse Rate [ Right Dorsalis Pedis] Pulse Rate [ Right Radial] Pulse Rate [ Throughout] Respiratory 31 H 25 H Rate Respiratory Rate [ Throughout] Blood Pressure 93/60 107/69 107/69 O2 Sat by Pulse 94 99 Oximetry O2 Sat by Pulse Oximetry [ Assessment] O2 Sat by Pulse Oximetry [ Throughout] 03/22/17 03/22/17 03/22/17 11:45 12:00 12:03 Temperature 97.5 F L Pulse Rate 88 84 387 H Pulse Rate [ Apical] Pulse Rate [ From Monitor] Pulse Rate [ Left Dorsalis Pedis] Pulse Rate [ Left Radial] Pulse Rate [ Right Dorsalis Pedis] Pulse Rate [ Right Radial] Pulse Rate [ Throughout] Respiratory 32 H 36 H Rate Respiratory Rate [ Throughout] Blood Pressure 107/72 101/69 101/69 O2 Sat by Pulse 100 97 Oximetry O2 Sat by Pulse Oximetry [ Assessment] O2 Sat by Pulse Oximetry [ Throughout] 03/22/17 03/22/17 03/22/17 12:15 12:30 12:32 Temperature Pulse Rate 86 91 H 90 Pulse Rate [ 89 Apical] Pulse Rate [ 89 From Monitor] Pulse Rate [ Left Dorsalis Pedis] Pulse Rate [ Left Radial] Pulse Rate [ Right Dorsalis Pedis] Pulse Rate [ Right Radial] Pulse Rate [ Throughout] Respiratory 25 H 28 H Rate Respiratory Rate [ Throughout] Blood Pressure 109/67 121/82 121/82 O2 Sat by Pulse 100 100 Oximetry O2 Sat by Pulse Oximetry [ Assessment] O2 Sat by Pulse Oximetry [ Throughout] 03/22/17 03/22/1703/22/18 12:45 12:50 13:00 Temperature 97.5 F L Pulse Rate 89 89 87 Pulse Rate [ Apical] Pulse Rate [ From Monitor] Pulse Rate [ Left Dorsalis Pedis] Pulse Rate [ Left Radial] Pulse Rate [ Right Dorsalis Pedis] Pulse Rate [ Right Radial] Pulse Rate [ Throughout] Respiratory 28 H 26 H 34 H Rate Respiratory Rate [ Throughout] Blood Pressure 117/67 117/67 122/76 O2 Sat by Pulse 94 99 Oximetry O2 Sat by Pulse Oximetry [ Assessment] O2 Sat by Pulse 99 Oximetry [ Throughout] 03/22/17 03/22/17 03/22/17 13:15 13:30 13:45 Temperature Pulse Rate 93 H 94 H 91 H Pulse Rate [ Apical] Pulse Rate [ From Monitor] Pulse Rate [ Left Dorsalis Pedis] Pulse Rate [ Left Radial] Pulse Rate [ Right Dorsalis Pedis] Pulse Rate [ Right Radial] Pulse Rate [ Throughout] Respiratory 30 H 21 29 H Rate Respiratory Rate [ Throughout] Blood Pressure 112/77 100/71 109/73 O2 Sat by Pulse 99 98 100 Oximetry O2 Sat by Pulse Oximetry [ Assessment] O2 Sat by Pulse Oximetry [ Throughout] 03/22/17 14:00 Temperature Pulse Rate 88 Pulse Rate [ Apical] Pulse Rate [ From Monitor] Pulse Rate [ Left Dorsalis Pedis] Pulse Rate [ Left Radial] Pulse Rate [ Right Dorsalis Pedis] Pulse Rate [ Right Radial] Pulse Rate [ Throughout] Respiratory 26 H Rate Respiratory Rate [ Throughout] Blood Pressure 102/65 O2 Sat by Pulse 100 Oximetry O2 Sat by Pulse Oximetry [ Assessment] O2 Sat by Pulse Oximetry [ Throughout] Constitutional: appears uncomfortable, other (not tracking) Eyes: non-icteric, other (tracheostomy tube in midline of neck) ENT: oropharynx moist, oropharyngeal exudate pre, other (midline tracheostomy tube) Neck: supple, no lymphadenopathy, no JVD, other (no thyromegaly) Effort: mildly labored Ascultation: Bilateral: clear, diminished breath sounds (bases R>L), rales, rhonchi (and referred upper airway sounds) Percussion: Right: dull (base), Bilateral: not dull Cardiovascular: regular rate and rhythm, other (no rubs / murmurs) Gastrointestinal: hypoactive bowel sounds, soft, non-tender, non-distended, other (RLQ & LUQ stomas with colostomy bags) Integumentary: decubitus ulcer (sacral; stage 4 s/p surgical debridement), other (no rash; no cellulitis; poor turgor) Extremities: no cyanosis, pulses normal, no ischemia or petechiae, edema (1+ bilaterally) Neurologic: pupils equal and round, unable to assess, other (encephalopathic) Psychiatric: other (unable to assess) CBC and BMP: 03/21/17 04:57 03/22/17 06:25 ABG, PT/INR, D-dimer: ABG POC ABG pH 7.518 (7.35-7.45) H 03/03/17 20: ABG pH 7.450 pH Units (7.350-7.450) 12/05/16 Unknown POC ABG pCO2 28.8 (35-45) L 03/03/17 20: ABG pCO2 29.6 mm Hg 12/05/16 Unknown POC ABG pO2 61 (80-105) L 03/03/17 20:17 ABG pO2 75.2 mm Hg (80.0-90.0) L 12/05/16 Unknown POC ABG HCO3 23.4 03/03/17 20:17 POC ABG Total CO2 24 03/03/17 20:17 POC ABG O2 Sat 94 03/03/17 20:17 ABG O2 Saturation 96.8 % (95.0-99.0) 12/05/16 Unknown PT/INR, D-dimer PT 15.4 Sec. (12.2-14.9) H 01/13/17 15:50 INR 1.16 (0.87-1.13) H 01/13/17 15:50 Abnormal lab findings: Abnormal Labs 09/03/16 09/03/16 09/03/16 00:03 00:10 00:10 WBC 13.9 H RBC 5.95 H Hgb Hct 44.0 H MCV 74 L MCH 22 L MCHC RDW 17.5 H Plt Count Lymph % (Auto) [place] % (Auto) Lymph # [place] # Baso # Seg Neutrophils % Seg Neuts % (Manual) Lymphocytes % (Manual) 54.0 H Monocytes % (Manual) Eosinophils % (Manual) Basophils % (Manual) Nucleated RBC % Seg Neutrophils # Seg Neutrophils # Man Lymphocytes # (Manual) 7.5 H Monocytes # (Manual) Eosinophils # (Manual) Basophils # (Manual) PT INR Fibrinogen dRVVT Confirm Interp Factor V Activity POC ABG pH POC ABG pCO2 POC ABG pO2 ABG pO2 ABG HCO3 ABG Base Excess ABG Hemoglobin Oxyhemoglobin Sodium Potassium 2.8 L* Chloride Carbon Dioxide 21 L BUN Creatinine 1.7 H Glucose 159 H POC Glucose 177 H Lactic Acid Calcium Ionized Calcium Phosphorus Magnesium Direct Bilirubin AST ALT Alkaline Phosphatase Lactate Dehydrogenase Troponin T C-Reactive Protein Total Protein Albumin Prealbumin Triglycerides Cholesterol LDL Cholesterol Direct HDL Cholesterol 25-OH Vitamin D Total PTH Intact Urine pH Urine WBC (Auto) Urine Creatinine Urine Total Protein Fluid Total Protein Vancomycin Trough Rheumatoid Factor Complement C4 Miscellaneous Test Crossmatch 09/03/16 09/03/16 09/03/16 12:12 15:07 16:20 WBC RBC Hgb Hct MCV MCH MCHC RDW Plt Count Lymph % (Auto) [place] % (Auto) Lymph # [place] # Baso # Seg Neutrophils % Seg Neuts % (Manual) Lymphocytes % (Manual) Monocytes % (Manual) Eosinophils % (Manual) Basophils % (Manual) Nucleated RBC % Seg Neutrophils # Seg Neutrophils # Man Lymphocytes # (Manual) Monocytes # (Manual) Eosinophils # (Manual) Basophils # (Manual) PT INR Fibrinogen dRVVT Confirm Interp Factor V Activity POC ABG pH 7.452 H POC ABG pCO2 POC ABG pO2 ABG pO2 ABG HCO3 ABG Base Excess ABG Hemoglobin Oxyhemoglobin Sodium Potassium Chloride Carbon Dioxide BUN Creatinine Glucose POC Glucose 178 H Lactic Acid Calcium Ionized Calcium Phosphorus 2.20 L Magnesium 1.60 L Direct Bilirubin AST ALT Alkaline Phosphatase Lactate Dehydrogenase Troponin T C-Reactive Protein Total Protein Albumin Prealbumin Triglycerides Cholesterol LDL Cholesterol Direct HDL Cholesterol 25-OH Vitamin D Total PTH Intact Urine pH Urine WBC (Auto) Urine Creatinine Urine Total Protein Fluid Total Protein Vancomycin Trough Rheumatoid Factor Complement C4 Miscellaneous Test Crossmatch 09/03/16 09/03/16 09/03/16 17:57 17:58 23:50 WBC RBC Hgb Hct MCV MCH MCHC RDW Plt Count Lymph % (Auto) [place] % (Auto) Lymph # [place] # Baso # Seg Neutrophils % Seg Neuts % (Manual) Lymphocytes % (Manual) Monocytes % (Manual) Eosinophils % (Manual) Basophils % (Manual) Nucleated RBC % Seg Neutrophils # Seg Neutrophils # Man Lymphocytes # (Manual) Monocytes # (Manual) Eosinophils # (Manual) Basophils # (Manual) PT INR Fibrinogen dRVVT Confirm Interp Factor V Activity POC ABG pH POC ABG pCO2 POC ABG pO2 ABG pO2 ABG HCO3 ABG Base Excess ABG Hemoglobin Oxyhemoglobin Sodium Potassium Chloride Carbon Dioxide BUN Creatinine Glucose POC Glucose 162 H 145 H Lactic Acid Calcium Ionized Calcium Phosphorus 2.30 L Magnesium Direct Bilirubin AST ALT Alkaline Phosphatase Lactate Dehydrogenase Troponin T C-Reactive Protein Total Protein Albumin Prealbumin Triglycerides Cholesterol LDL Cholesterol Direct HDL Cholesterol 25-OH Vitamin D Total PTH Intact Urine pH Urine WBC (Auto) Urine Creatinine Urine Total Protein Fluid Total Protein Vancomycin Trough Rheumatoid Factor Complement C4 Miscellaneous Test Crossmatch 09/04/16 09/04/16 09/04/16 03:31 03:31 05:42 WBC RBC Hgb 9.7 L D Hct MCV 72 L MCH 23 L MCHC RDW 17.5 H Plt Count Lymph % (Auto) 11.1 L [place] % (Auto) Lymph # [place] # Baso # Seg Neutrophils % 84.3 H Seg Neuts % (Manual) Lymphocytes % (Manual) Monocytes % (Manual) Eosinophils % (Manual) Basophils % (Manual) Nucleated RBC % Seg Neutrophils # 8.9 H Seg Neutrophils # Man Lymphocytes # (Manual) Monocytes # (Manual) Eosinophils # (Manual) Basophils # (Manual) PT INR Fibrinogen dRVVT Confirm Interp Factor V Activity POC ABG pH POC ABG pCO2 POC ABG pO2 ABG pO2 ABG HCO3 ABG Base Excess ABG Hemoglobin Oxyhemoglobin Sodium 135 L Potassium 2.9 L* Chloride 97.2 L Carbon Dioxide 19 L BUN Creatinine 1.7 H Glucose 170 H POC Glucose 152 H Lactic Acid Calcium Ionized Calcium Phosphorus Magnesium Direct Bilirubin AST ALT Alkaline Phosphatase Lactate Dehydrogenase Troponin T C-Reactive Protein Total Protein Albumin Prealbumin Triglycerides 160 H Cholesterol LDL Cholesterol Direct HDL Cholesterol 31 L 25-OH Vitamin D Total PTH Intact Urine pH Urine WBC (Auto) Urine Creatinine Urine Total Protein Fluid Total Protein Vancomycin Trough Rheumatoid Factor Complement C4 Miscellaneous Test Crossmatch 09/04/16 09/04/16 09/04/16 11:34 17:46 23:29 WBC RBC Hgb Hct MCV MCH MCHC RDW Plt Count Lymph % (Auto) [place] % (Auto) Lymph # [place] # Baso # Seg Neutrophils % Seg Neuts % (Manual) Lymphocytes % (Manual) Monocytes % (Manual) Eosinophils % (Manual) Basophils % (Manual) Nucleated RBC % Seg Neutrophils # Seg Neutrophils # Man Lymphocytes # (Manual) Monocytes # (Manual) Eosinophils # (Manual) Basophils # (Manual) PT INR Fibrinogen dRVVT Confirm Interp Factor V Activity POC ABG pH POC ABG pCO2 POC ABG pO2 ABG pO2 ABG HCO3 ABG Base Excess ABG Hemoglobin Oxyhemoglobin Sodium Potassium Chloride Carbon Dioxide BUN Creatinine Glucose POC Glucose 165 H 210 H 139 H Lactic Acid Calcium Ionized Calcium Phosphorus Magnesium Direct Bilirubin AST ALT Alkaline Phosphatase Lactate Dehydrogenase Troponin T C-Reactive Protein Total Protein Albumin Prealbumin Triglycerides Cholesterol LDL Cholesterol Direct HDL Cholesterol 25-OH Vitamin D Total PTH Intact Urine pH Urine WBC (Auto) Urine Creatinine Urine Total Protein Fluid Total Protein Vancomycin Trough Rheumatoid Factor Complement C4 Miscellaneous Test Crossmatch 09/05/16 09/05/16 09/05/16 04:05 04:05 05:38 WBC RBC Hgb Hct MCV 76 L D MCH 23 L MCHC RDW 17.8 H Plt Count Lymph % (Auto) [place] % (Auto) Lymph # [place] # Baso # Seg Neutrophils % Seg Neuts % (Manual) Lymphocytes % (Manual) Monocytes % (Manual) Eosinophils % (Manual) Basophils % (Manual) Nucleated RBC % Seg Neutrophils # Seg Neutrophils # Man Lymphocytes # (Manual) Monocytes # (Manual) Eosinophils # (Manual) Basophils # (Manual) PT INR Fibrinogen dRVVT Confirm Interp Factor V Activity POC ABG pH POC ABG pCO2 POC ABG pO2 ABG pO2 ABG HCO3 ABG Base Excess ABG Hemoglobin Oxyhemoglobin Sodium 134 L Potassium Chloride Carbon Dioxide 18 L BUN Creatinine 1.8 H Glucose 192 H POC Glucose 175 H Lactic Acid Calcium Ionized Calcium Phosphorus Magnesium Direct Bilirubin AST ALT Alkaline Phosphatase Lactate Dehydrogenase Troponin T C-Reactive Protein Total Protein Albumin Prealbumin Triglycerides Cholesterol LDL Cholesterol Direct HDL Cholesterol 25-OH Vitamin D Total PTH Intact Urine pH Urine WBC (Auto) Urine Creatinine Urine Total Protein Fluid Total Protein Vancomycin Trough Rheumatoid Factor Complement C4 Miscellaneous Test Crossmatch 09/05/16 09/05/16 09/05/16 11:38 17:48 23:22 WBC RBC Hgb Hct MCV MCH MCHC RDW Plt Count Lymph % (Auto) [place] % (Auto) Lymph # [place] # Baso # Seg Neutrophils % Seg Neuts % (Manual) Lymphocytes % (Manual) Monocytes % (Manual) Eosinophils % (Manual) Basophils % (Manual) Nucleated RBC % Seg Neutrophils # Seg Neutrophils # Man Lymphocytes # (Manual) Monocytes # (Manual) Eosinophils # (Manual) Basophils # (Manual) PT INR Fibrinogen dRVVT Confirm Interp Factor V Activity POC ABG pH POC ABG pCO2 POC ABG pO2 ABG pO2 ABG HCO3 ABG Base Excess ABG Hemoglobin Oxyhemoglobin Sodium Potassium Chloride Carbon Dioxide BUN Creatinine Glucose POC Glucose 164 H 186 H 195 H Lactic Acid Calcium Ionized Calcium Phosphorus Magnesium Direct Bilirubin AST ALT Alkaline Phosphatase Lactate Dehydrogenase Troponin T C-Reactive Protein Total Protein Albumin Prealbumin Triglycerides Cholesterol LDL Cholesterol Direct HDL Cholesterol 25-OH Vitamin D Total PTH Intact Urine pH Urine WBC (Auto) Urine Creatinine Urine Total Protein Fluid Total Protein Vancomycin Trough Rheumatoid Factor Complement C4 Miscellaneous Test Crossmatch 09/06/16 09/06/16 09/06/16 04:12 05:59 07:32 WBC RBC Hgb Hct MCV MCH MCHC RDW Plt Count Lymph % (Auto) [place] % (Auto) Lymph # [place] # Baso # Seg Neutrophils % Seg Neuts % (Manual) Lymphocytes % (Manual) Monocytes % (Manual) Eosinophils % (Manual) Basophils % (Manual) Nucleated RBC % Seg Neutrophils # Seg Neutrophils # Man Lymphocytes # (Manual) Monocytes # (Manual) Eosinophils # (Manual) Basophils # (Manual) PT INR Fibrinogen dRVVT Confirm Interp Factor V Activity POC ABG pH 7.514 H POC ABG pCO2 29.1 L POC ABG pO2 72 L ABG pO2 ABG HCO3 ABG Base Excess ABG Hemoglobin Oxyhemoglobin Sodium 133 L Potassium 3.4 L Chloride 94.9 L Carbon Dioxide 19 L BUN 30 H Creatinine 2.1 H Glucose 139 H POC Glucose 146 H Lactic Acid Calcium Ionized Calcium Phosphorus Magnesium Direct Bilirubin AST ALT Alkaline Phosphatase Lactate Dehydrogenase Troponin T C-Reactive Protein Total Protein Albumin Prealbumin Triglycerides Cholesterol LDL Cholesterol Direct HDL Cholesterol 25-OH Vitamin D Total PTH Intact Urine pH Urine WBC (Auto) Urine Creatinine Urine Total Protein Fluid Total Protein Vancomycin Trough Rheumatoid Factor Complement C4 Miscellaneous Test Crossmatch 09/06/16 09/06/16 09/06/16 11:57 17:58 19:02 WBC RBC Hgb Hct MCV MCH MCHC RDW Plt Count Lymph % (Auto) [place] % (Auto) Lymph # [place] # Baso # Seg Neutrophils % Seg Neuts % (Manual) Lymphocytes % (Manual) Monocytes % (Manual) Eosinophils % (Manual) Basophils % (Manual) Nucleated RBC % Seg Neutrophils # Seg Neutrophils # Man Lymphocytes # (Manual) Monocytes # (Manual) Eosinophils # (Manual) Basophils # (Manual) PT INR Fibrinogen dRVVT Confirm Interp Factor V Activity POC ABG pH 7.465 H POC ABG pCO2 32.0 L POC ABG pO2 ABG pO2 ABG HCO3 ABG Base Excess ABG Hemoglobin Oxyhemoglobin Sodium Potassium Chloride Carbon Dioxide BUN Creatinine Glucose POC Glucose 165 H 160 H Lactic Acid Calcium Ionized Calcium Phosphorus Magnesium Direct Bilirubin AST ALT Alkaline Phosphatase Lactate Dehydrogenase Troponin T C-Reactive Protein Total Protein Albumin Prealbumin Triglycerides Cholesterol LDL Cholesterol Direct HDL Cholesterol 25-OH Vitamin D Total PTH Intact Urine pH Urine WBC (Auto) Urine Creatinine Urine Total Protein Fluid Total Protein Vancomycin Trough Rheumatoid Factor Complement C4 Miscellaneous Test Crossmatch 09/06/16 09/07/16 09/07/16 23:45 02:47 02:47 WBC RBC Hgb Hct MCV MCH MCHC RDW Plt Count Lymph % (Auto) [place] % (Auto) Lymph # [place] # Baso # Seg Neutrophils % Seg Neuts % (Manual) Lymphocytes % (Manual) Monocytes % (Manual) Eosinophils % (Manual) Basophils % (Manual) Nucleated RBC % Seg Neutrophils # Seg Neutrophils # Man Lymphocytes # (Manual) Monocytes # (Manual) Eosinophils # (Manual) Basophils # (Manual) PT INR Fibrinogen dRVVT Confirm Interp Factor V Activity POC ABG pH POC ABG pCO2 POC ABG pO2 ABG pO2 ABG HCO3 ABG Base Excess ABG Hemoglobin Oxyhemoglobin Sodium Potassium Chloride Carbon Dioxide BUN Creatinine Glucose POC Glucose 204 H Lactic Acid Calcium Ionized Calcium Phosphorus Magnesium Direct Bilirubin AST ALT Alkaline Phosphatase Lactate Dehydrogenase Troponin T C-Reactive Protein Total Protein Albumin Prealbumin Triglycerides Cholesterol LDL Cholesterol Direct HDL Cholesterol 25-OH Vitamin D Total PTH Intact Urine pH Urine WBC (Auto) 68.0 H Urine Creatinine 106.1 H Urine Total Protein Fluid Total Protein Vancomycin Trough Rheumatoid Factor Complement C4 Miscellaneous Test Crossmatch 09/07/16 09/07/16 09/07/16 04:50 06:19 06:39 WBC RBC Hgb Hct MCV MCH MCHC RDW Plt Count Lymph % (Auto) [place] % (Auto) Lymph # [place] # Baso # Seg Neutrophils % Seg Neuts % (Manual) Lymphocytes % (Manual) Monocytes % (Manual) Eosinophils % (Manual) Basophils % (Manual) Nucleated RBC % Seg Neutrophils # Seg Neutrophils # Man Lymphocytes # (Manual) Monocytes # (Manual) Eosinophils # (Manual) Basophils # (Manual) PT INR Fibrinogen dRVVT Confirm Interp Factor V Activity POC ABG pH 7.457 H POC ABG pCO2 32.1 L POC ABG pO2 76 L ABG pO2 ABG HCO3 ABG Base Excess ABG Hemoglobin Oxyhemoglobin Sodium 132 L Potassium Chloride 94.7 L Carbon Dioxide BUN 53 H Creatinine 2.9 H Glucose 151 H POC Glucose 149 H Lactic Acid Calcium Ionized Calcium Phosphorus Magnesium Direct Bilirubin AST ALT Alkaline Phosphatase Lactate Dehydrogenase Troponin T C-Reactive Protein Total Protein Albumin Prealbumin Triglycerides Cholesterol LDL Cholesterol Direct HDL Cholesterol 25-OH Vitamin D Total PTH Intact Urine pH Urine WBC (Auto) Urine Creatinine Urine Total Protein Fluid Total Protein Vancomycin Trough Rheumatoid Factor Complement C4 Miscellaneous Test Crossmatch 09/07/16 09/07/16 09/07/16 09:20 11:43 11:43 WBC 19.4 H RBC Hgb 8.3 L Hct 26.4 L D MCV 72 L D MCH 22 L MCHC RDW 17.9 H Plt Count Lymph % (Auto) 8.5 L [place] % (Auto) Lymph # [place] # 1.0 H Baso # Seg Neutrophils % 85.8 H Seg Neuts % (Manual) Lymphocytes % (Manual) Monocytes % (Manual) Eosinophils % (Manual) Basophils % (Manual) Nucleated RBC % Seg Neutrophils # 16.6 H Seg Neutrophils # Man Lymphocytes # (Manual) Monocytes # (Manual) Eosinophils # (Manual) Basophils # (Manual) PT INR Fibrinogen dRVVT Confirm Interp Factor V Activity POC ABG pH POC ABG pCO2 POC ABG pO2 ABG pO2 ABG HCO3 ABG Base Excess ABG Hemoglobin Oxyhemoglobin Sodium 134 L Potassium Chloride 97.2 L Carbon Dioxide 20 L BUN 58 H Creatinine 2.9 H Glucose 147 H POC Glucose Lactic Acid Calcium Ionized Calcium Phosphorus 2.40 L Magnesium 2.40 H Direct Bilirubin AST ALT Alkaline Phosphatase Lactate Dehydrogenase Troponin T C-Reactive Protein Total Protein 5.8 L Albumin 2.2 L Prealbumin Triglycerides Cholesterol LDL Cholesterol Direct HDL Cholesterol 25-OH Vitamin D Total PTH Intact Urine pH Urine WBC (Auto) Urine Creatinine Urine Total Protein Fluid Total Protein Vancomycin Trough Rheumatoid Factor Complement C4 58 H Miscellaneous Test Crossmatch 09/07/16 09/07/16 09/07/16 11:50 16:00 17:31 WBC RBC Hgb Hct MCV MCH MCHC RDW Plt Count Lymph % (Auto) [place] % (Auto) Lymph # [place] # Baso # Seg Neutrophils % Seg Neuts % (Manual) Lymphocytes % (Manual) Monocytes % (Manual) Eosinophils % (Manual) Basophils % (Manual) Nucleated RBC % Seg Neutrophils # Seg Neutrophils # Man Lymphocytes # (Manual) Monocytes # (Manual) Eosinophils # (Manual) Basophils # (Manual) PT INR Fibrinogen dRVVT Confirm Interp Factor V Activity POC ABG pH POC ABG pCO2 POC ABG pO2 158 H ABG pO2 ABG HCO3 ABG Base Excess ABG Hemoglobin Oxyhemoglobin Sodium Potassium Chloride Carbon Dioxide BUN Creatinine Glucose POC Glucose 175 H Lactic Acid Calcium Ionized Calcium Phosphorus Magnesium Direct Bilirubin AST ALT Alkaline Phosphatase Lactate Dehydrogenase Troponin T C-Reactive Protein Total Protein Albumin Prealbumin Triglycerides Cholesterol LDL Cholesterol Direct HDL Cholesterol 25-OH Vitamin D Total PTH Intact Urine pH Urine WBC (Auto) Urine Creatinine 66.3 H Urine Total Protein Fluid Total Protein Vancomycin Trough Rheumatoid Factor Complement C4 Miscellaneous Test Crossmatch 09/07/16 09/08/16 09/08/16 23:50 05:46 06:18 WBC 17.8 H RBC 3.58 L Hgb 8.1 L Hct 25.5 L MCV 71 L MCH 23 L MCHC RDW 18.4 H Plt Count Lymph % (Auto) [place] % (Auto) Lymph # [place] # Baso # Seg Neutrophils % Seg Neuts % (Manual) 92.0 H Lymphocytes % (Manual) 6.0 L Monocytes % (Manual) Eosinophils % (Manual) Basophils % (Manual) Nucleated RBC % Seg Neutrophils # Seg Neutrophils # Man 16.4 H Lymphocytes # (Manual) 1.1 L Monocytes # (Manual) Eosinophils # (Manual) Basophils # (Manual) PT INR Fibrinogen dRVVT Confirm Interp Factor V Activity POC ABG pH POC ABG pCO2 34.3 L POC ABG pO2 71 L ABG pO2 ABG HCO3 ABG Base Excess ABG Hemoglobin Oxyhemoglobin Sodium Potassium Chloride Carbon Dioxide BUN Creatinine Glucose POC Glucose 216 H Lactic Acid Calcium Ionized Calcium Phosphorus Magnesium Direct Bilirubin AST ALT Alkaline Phosphatase Lactate Dehydrogenase Troponin T C-Reactive Protein Total Protein Albumin Prealbumin Triglycerides Cholesterol LDL Cholesterol Direct HDL Cholesterol 25-OH Vitamin D Total PTH Intact Urine pH Urine WBC (Auto) Urine Creatinine Urine Total Protein Fluid Total Protein Vancomycin Trough Rheumatoid Factor Complement C4 Miscellaneous Test Crossmatch 09/08/16 09/08/16 09/08/16 06:18 06:51 10:55 WBC RBC Hgb Hct MCV MCH MCHC RDW Plt Count Lymph % (Auto) [place] % (Auto) Lymph # [place] # Baso # Seg Neutrophils % Seg Neuts % (Manual) Lymphocytes % (Manual) Monocytes % (Manual) Eosinophils % (Manual) Basophils % (Manual) Nucleated RBC % Seg Neutrophils # Seg Neutrophils # Man Lymphocytes # (Manual) Monocytes # (Manual) Eosinophils # (Manual) Basophils # (Manual) PT INR Fibrinogen dRVVT Confirm Interp Factor V Activity POC ABG pH POC ABG pCO2 POC ABG pO2 ABG pO2 ABG HCO3 ABG Base Excess ABG Hemoglobin Oxyhemoglobin Sodium 133 L Potassium Chloride 96.9 L Carbon Dioxide 20 L BUN 63 H Creatinine 2.7 H Glucose 195 H POC Glucose 204 H 169 H Lactic Acid Calcium Ionized Calcium Phosphorus Magnesium Direct Bilirubin AST ALT Alkaline Phosphatase Lactate Dehydrogenase Troponin T C-Reactive Protein Total Protein Albumin Prealbumin Triglycerides Cholesterol LDL Cholesterol Direct HDL Cholesterol 25-OH Vitamin D Total PTH Intact Urine pH Urine WBC (Auto) Urine Creatinine Urine Total Protein Fluid Total Protein Vancomycin Trough Rheumatoid Factor Complement C4 Miscellaneous Test Crossmatch 09/08/16 09/08/16 09/08/16 11:48 11:48 11:48 WBC RBC Hgb Hct MCV MCH MCHC RDW Plt Count Lymph % (Auto) [place] % (Auto) Lymph # [place] # Baso # Seg Neutrophils % Seg Neuts % (Manual) Lymphocytes % (Manual) Monocytes % (Manual) Eosinophils % (Manual) Basophils % (Manual) Nucleated RBC % Seg Neutrophils # Seg Neutrophils # Man Lymphocytes # (Manual) Monocytes # (Manual) Eosinophils # (Manual) Basophils # (Manual) PT INR Fibrinogen 750 H dRVVT Confirm Interp Factor V Activity POC ABG pH POC ABG pCO2 POC ABG pO2 ABG pO2 ABG HCO3 ABG Base Excess ABG Hemoglobin Oxyhemoglobin Sodium Potassium Chloride Carbon Dioxide BUN Creatinine Glucose POC Glucose Lactic Acid Calcium Ionized Calcium Phosphorus Magnesium Direct Bilirubin AST ALT Alkaline Phosphatase Lactate Dehydrogenase Troponin T C-Reactive Protein 15.70 H Total Protein Albumin Prealbumin Triglycerides Cholesterol LDL Cholesterol Direct HDL Cholesterol 25-OH Vitamin D Total PTH Intact Urine pH Urine WBC (Auto) Urine Creatinine Urine Total Protein Fluid Total Protein Vancomycin Trough Rheumatoid Factor 24 H Complement C4 Miscellaneous Test Crossmatch 09/08/16 09/08/16 09/09/16 15:35 18:25 00:24 WBC RBC Hgb Hct MCV MCH MCHC RDW Plt Count Lymph % (Auto) [place] % (Auto) Lymph # [place] # Baso # Seg Neutrophils % Seg Neuts % (Manual) Lymphocytes % (Manual) Monocytes % (Manual) Eosinophils % (Manual) Basophils % (Manual) Nucleated RBC % Seg Neutrophils # Seg Neutrophils # Man Lymphocytes # (Manual) Monocytes # (Manual) Eosinophils # (Manual) Basophils # (Manual) PT INR Fibrinogen dRVVT Confirm Interp Factor V Activity 182 H POC ABG pH POC ABG pCO2 POC ABG pO2 ABG pO2 ABG HCO3 ABG Base Excess ABG Hemoglobin Oxyhemoglobin Sodium Potassium Chloride Carbon Dioxide BUN Creatinine Glucose POC Glucose 184 H 216 H Lactic Acid Calcium Ionized Calcium Phosphorus Magnesium Direct Bilirubin AST ALT Alkaline Phosphatase Lactate Dehydrogenase Troponin T C-Reactive Protein Total Protein Albumin Prealbumin Triglycerides Cholesterol LDL Cholesterol Direct HDL Cholesterol 25-OH Vitamin D Total PTH Intact Urine pH Urine WBC (Auto) Urine Creatinine Urine Total Protein Fluid Total Protein Vancomycin Trough Rheumatoid Factor Complement C4 Miscellaneous Test Crossmatch 09/09/16 09/09/16 09/09/16 03:00 03:00 04:04 WBC 27.9 H RBC Hgb 8.7 L Hct 28.1 L MCV 72 L MCH 22 L MCHC RDW 18.4 H Plt Count 485 H Lymph % (Auto) [place] % (Auto) Lymph # [place] # Baso # Seg Neutrophils % Seg Neuts % (Manual) 77.0 H Lymphocytes % (Manual) 9.0 L Monocytes % (Manual) Eosinophils % (Manual) Basophils % (Manual) Nucleated RBC % Seg Neutrophils # Seg Neutrophils # Man 21.5 H Lymphocytes # (Manual) Monocytes # (Manual) 2.0 H Eosinophils # (Manual) Basophils # (Manual) PT INR Fibrinogen dRVVT Confirm Interp Factor V Activity POC ABG pH POC ABG pCO2 POC ABG pO2 121 H ABG pO2 ABG HCO3 ABG Base Excess ABG Hemoglobin Oxyhemoglobin Sodium 135 L Potassium Chloride 96.3 L Carbon Dioxide 21 L BUN 83 H Creatinine 3.0 H Glucose 135 H POC Glucose Lactic Acid Calcium Ionized Calcium Phosphorus Magnesium Direct Bilirubin AST ALT Alkaline Phosphatase Lactate Dehydrogenase Troponin T C-Reactive Protein Total Protein Albumin Prealbumin Triglycerides Cholesterol LDL Cholesterol Direct HDL Cholesterol 25-OH Vitamin D Total PTH Intact Urine pH Urine WBC (Auto) Urine Creatinine Urine Total Protein Fluid Total Protein Vancomycin Trough Rheumatoid Factor Complement C4 Miscellaneous Test Crossmatch 09/09/16 09/09/16 09/09/16 05:41 11:55 14:13 WBC RBC Hgb Hct MCV MCH MCHC RDW Plt Count Lymph % (Auto) [place] % (Auto) Lymph # [place] # Baso # Seg Neutrophils % Seg Neuts % (Manual) Lymphocytes % (Manual) Monocytes % (Manual) Eosinophils % (Manual) Basophils % (Manual) Nucleated RBC % Seg Neutrophils # Seg Neutrophils # Man Lymphocytes # (Manual) Monocytes # (Manual) Eosinophils # (Manual) Basophils # (Manual) PT INR Fibrinogen dRVVT Confirm Interp Factor V Activity POC ABG pH POC ABG pCO2 POC ABG pO2 ABG pO2 ABG HCO3 ABG Base Excess ABG Hemoglobin Oxyhemoglobin Sodium Potassium Chloride Carbon Dioxide BUN Creatinine Glucose POC Glucose 155 H 186 H Lactic Acid Calcium Ionized Calcium Phosphorus Magnesium Direct Bilirubin AST ALT Alkaline Phosphatase Lactate Dehydrogenase Troponin T C-Reactive Protein Total Protein Albumin Prealbumin Triglycerides Cholesterol LDL Cholesterol Direct HDL Cholesterol 25-OH Vitamin D Total PTH Intact Urine pH Urine WBC (Auto) 25.0 H Urine Creatinine Urine Total Protein Fluid Total Protein Vancomycin Trough Rheumatoid Factor Complement C4 Miscellaneous Test Crossmatch 09/09/16 09/09/16 09/10/16 17:33 23:13 05:09 WBC RBC Hgb Hct MCV MCH MCHC RDW Plt Count Lymph % (Auto) [place] % (Auto) Lymph # [place] # Baso # Seg Neutrophils % Seg Neuts % (Manual) Lymphocytes % (Manual) Monocytes % (Manual) Eosinophils % (Manual) Basophils % (Manual) Nucleated RBC % Seg Neutrophils # Seg Neutrophils # Man Lymphocytes # (Manual) Monocytes # (Manual) Eosinophils # (Manual) Basophils # (Manual) PT INR Fibrinogen dRVVT Confirm Interp Factor V Activity POC ABG pH POC ABG pCO2 POC ABG pO2 74 L ABG pO2 ABG HCO3 ABG Base Excess ABG Hemoglobin Oxyhemoglobin Sodium Potassium Chloride Carbon Dioxide BUN Creatinine Glucose POC Glucose 211 H 215 H Lactic Acid Calcium Ionized Calcium Phosphorus Magnesium Direct Bilirubin AST ALT Alkaline Phosphatase Lactate Dehydrogenase Troponin T C-Reactive Protein Total Protein Albumin Prealbumin Triglycerides Cholesterol LDL Cholesterol Direct HDL Cholesterol 25-OH Vitamin D Total PTH Intact Urine pH Urine WBC (Auto) Urine Creatinine Urine Total Protein Fluid Total Protein Vancomycin Trough Rheumatoid Factor Complement C4 Miscellaneous Test Crossmatch 09/10/16 09/10/16 09/10/16 05:17 05:17 11:31 WBC 15.8 H RBC 3.25 L Hgb 7.3 L Hct 22.9 L MCV 71 L MCH 23 L MCHC RDW 18.4 H Plt Count Lymph % (Auto) [place] % (Auto) Lymph # [place] # Baso # Seg Neutrophils % Seg Neuts % (Manual) 91.0 H Lymphocytes % (Manual) 4.0 L Monocytes % (Manual) Eosinophils % (Manual) Basophils % (Manual) Nucleated RBC % Seg Neutrophils # Seg Neutrophils # Man 14.4 H Lymphocytes # (Manual) 0.6 L Monocytes # (Manual) Eosinophils # (Manual) Basophils # (Manual) PT INR Fibrinogen dRVVT Confirm Interp Factor V Activity POC ABG pH POC ABG pCO2 POC ABG pO2 ABG pO2 ABG HCO3 ABG Base Excess ABG Hemoglobin Oxyhemoglobin Sodium Potassium Chloride Carbon Dioxide 21 L BUN 93 H Creatinine 2.9 H Glucose 146 H POC Glucose 188 H Lactic Acid Calcium 8.1 L Ionized Calcium Phosphorus Magnesium Direct Bilirubin AST ALT Alkaline Phosphatase Lactate Dehydrogenase Troponin T C-Reactive Protein Total Protein Albumin Prealbumin Triglycerides Cholesterol LDL Cholesterol Direct HDL Cholesterol 25-OH Vitamin D Total PTH Intact Urine pH Urine WBC (Auto) Urine Creatinine Urine Total Protein Fluid Total Protein Vancomycin Trough Rheumatoid Factor Complement C4 Miscellaneous Test Crossmatch 09/10/16 09/10/16 09/10/16 13:17 17:20 23:32 WBC RBC Hgb Hct MCV MCH MCHC RDW Plt Count Lymph % (Auto) [place] % (Auto) Lymph # [place] # Baso # Seg Neutrophils % Seg Neuts % (Manual) Lymphocytes % (Manual) Monocytes % (Manual) Eosinophils % (Manual) Basophils % (Manual) Nucleated RBC % Seg Neutrophils # Seg Neutrophils # Man Lymphocytes # (Manual) Monocytes # (Manual) Eosinophils # (Manual) Basophils # (Manual) PT INR Fibrinogen dRVVT Confirm Interp Factor V Activity POC ABG pH POC ABG pCO2 POC ABG pO2 ABG pO2 ABG HCO3 ABG Base Excess ABG Hemoglobin Oxyhemoglobin Sodium Potassium Chloride Carbon Dioxide BUN Creatinine Glucose POC Glucose 199 H 186 H Lactic Acid Calcium Ionized Calcium Phosphorus Magnesium Direct Bilirubin AST ALT Alkaline Phosphatase Lactate Dehydrogenase Troponin T C-Reactive Protein Total Protein Albumin Prealbumin Triglycerides Cholesterol LDL Cholesterol Direct HDL Cholesterol 25-OH Vitamin D Total PTH Intact Urine pH Urine WBC (Auto) Urine Creatinine Urine Total Protein Fluid Total Protein Vancomycin Trough Rheumatoid Factor Complement C4 Miscellaneous Test Crossmatch See Detail 09/11/16 09/11/16 09/11/16 05:10 05:10 05:17 WBC 28.4 H RBC Hgb 9.2 L Hct 29.3 L D MCV 73 L MCH 23 L MCHC RDW 18.9 H Plt Count 452 H Lymph % (Auto) [place] % (Auto) Lymph # [place] # Baso # Seg Neutrophils % Seg Neuts % (Manual) 89.5 H Lymphocytes % (Manual) 2.0 L Monocytes % (Manual) Eosinophils % (Manual) Basophils % (Manual) Nucleated RBC % Seg Neutrophils # Seg Neutrophils # Man 25.4 H Lymphocytes # (Manual) 0.6 L Monocytes # (Manual) 1.3 H Eosinophils # (Manual) Basophils # (Manual) PT INR Fibrinogen dRVVT Confirm Interp Factor V Activity POC ABG pH POC ABG pCO2 POC ABG pO2 ABG pO2 ABG HCO3 ABG Base Excess ABG Hemoglobin Oxyhemoglobin Sodium 136 L Potassium Chloride Carbon Dioxide 18 L BUN 107 H Creatinine 2.6 H Glucose 187 H POC Glucose 230 H Lactic Acid Calcium 8.3 L Ionized Calcium Phosphorus Magnesium Direct Bilirubin AST ALT Alkaline Phosphatase Lactate Dehydrogenase Troponin T C-Reactive Protein Total Protein Albumin Prealbumin Triglycerides Cholesterol LDL Cholesterol Direct HDL Cholesterol 25-OH Vitamin D Total PTH Intact Urine pH Urine WBC (Auto) Urine Creatinine Urine Total Protein Fluid Total Protein Vancomycin Trough Rheumatoid Factor Complement C4 Miscellaneous Test Crossmatch 09/11/16 09/11/16 09/11/16 05:55 12:02 17:32 WBC RBC Hgb Hct MCV MCH MCHC RDW Plt Count Lymph % (Auto) [place] % (Auto) Lymph # [place] # Baso # Seg Neutrophils % Seg Neuts % (Manual) Lymphocytes % (Manual) Monocytes % (Manual) Eosinophils % (Manual) Basophils % (Manual) Nucleated RBC % Seg Neutrophils # Seg Neutrophils # Man Lymphocytes # (Manual) Monocytes # (Manual) Eosinophils # (Manual) Basophils # (Manual) PT INR Fibrinogen dRVVT Confirm Interp Factor V Activity POC ABG pH POC ABG pCO2 33.8 L POC ABG pO2 ABG pO2 ABG HCO3 ABG Base Excess ABG Hemoglobin Oxyhemoglobin Sodium Potassium Chloride Carbon Dioxide BUN Creatinine Glucose POC Glucose 191 H 239 H Lactic Acid Calcium Ionized Calcium Phosphorus Magnesium Direct Bilirubin AST ALT Alkaline Phosphatase Lactate Dehydrogenase Troponin T C-Reactive Protein Total Protein Albumin Prealbumin Triglycerides Cholesterol LDL Cholesterol Direct HDL Cholesterol 25-OH Vitamin D Total PTH Intact Urine pH Urine WBC (Auto) Urine Creatinine Urine Total Protein Fluid Total Protein Vancomycin Trough Rheumatoid Factor Complement C4 Miscellaneous Test Crossmatch 09/11/16 09/12/16 09/12/16 23:52 05:09 05:32 WBC RBC Hgb Hct MCV MCH MCHC RDW Plt Count Lymph % (Auto) [place] % (Auto) Lymph # [place] # Baso # Seg Neutrophils % Seg Neuts % (Manual) Lymphocytes % (Manual) Monocytes % (Manual) Eosinophils % (Manual) Basophils % (Manual) Nucleated RBC % Seg Neutrophils # Seg Neutrophils # Man Lymphocytes # (Manual) Monocytes # (Manual) Eosinophils # (Manual) Basophils # (Manual) PT INR Fibrinogen dRVVT Confirm Interp Factor V Activity POC ABG pH POC ABG pCO2 34.6 L POC ABG pO2 ABG pO2 ABG HCO3 ABG Base Excess ABG Hemoglobin Oxyhemoglobin Sodium Potassium Chloride Carbon Dioxide BUN Creatinine Glucose POC Glucose 265 H 184 H Lactic Acid Calcium Ionized Calcium Phosphorus Magnesium Direct Bilirubin AST ALT Alkaline Phosphatase Lactate Dehydrogenase Troponin T C-Reactive Protein Total Protein Albumin Prealbumin Triglycerides Cholesterol LDL Cholesterol Direct HDL Cholesterol 25-OH Vitamin D Total PTH Intact Urine pH Urine WBC (Auto) Urine Creatinine Urine Total Protein Fluid Total Protein Vancomycin Trough Rheumatoid Factor Complement C4 Miscellaneous Test Crossmatch 09/12/16 09/12/16 09/12/16 06:45 06:45 07:22 WBC 31.7 H RBC 3.54 L Hgb 8.3 L Hct 25.9 L MCV 73 L MCH 23 L MCHC RDW 18.9 H Plt Count Lymph % (Auto) [place] % (Auto) Lymph # [place] # Baso # Seg Neutrophils % Seg Neuts % (Manual) 88.5 H Lymphocytes % (Manual) 4.5 L Monocytes % (Manual) Eosinophils % (Manual) Basophils % (Manual) Nucleated RBC % Seg Neutrophils # Seg Neutrophils # Man 28.1 H Lymphocytes # (Manual) Monocytes # (Manual) 1.0 H Eosinophils # (Manual) Basophils # (Manual) PT INR Fibrinogen dRVVT Confirm Interp Factor V Activity POC ABG pH POC ABG pCO2 POC ABG pO2 ABG pO2 ABG HCO3 ABG Base Excess ABG Hemoglobin Oxyhemoglobin Sodium Potassium Chloride Carbon Dioxide 20 L BUN 115 H Creatinine 2.7 H Glucose 165 H POC Glucose Lactic Acid Calcium 8.0 L Ionized Calcium Phosphorus Magnesium Direct Bilirubin AST ALT Alkaline Phosphatase Lactate Dehydrogenase Troponin T C-Reactive Protein Total Protein Albumin Prealbumin Triglycerides 217 H Cholesterol LDL Cholesterol Direct HDL Cholesterol 25-OH Vitamin D Total PTH Intact Urine pH Urine WBC (Auto) Urine Creatinine Urine Total Protein Fluid Total Protein Vancomycin Trough Rheumatoid Factor Complement C4 Miscellaneous Test Crossmatch 09/12/16 09/12/16 09/12/16 07:22 09:59 12:21 WBC RBC Hgb Hct MCV MCH MCHC RDW Plt Count Lymph % (Auto) [place] % (Auto) Lymph # [place] # Baso # Seg Neutrophils % Seg Neuts % (Manual) Lymphocytes % (Manual) Monocytes % (Manual) Eosinophils % (Manual) Basophils % (Manual) Nucleated RBC % Seg Neutrophils # Seg Neutrophils # Man Lymphocytes # (Manual) Monocytes # (Manual) Eosinophils # (Manual) Basophils # (Manual) PT INR Fibrinogen dRVVT Confirm Interp Positive H Factor V Activity POC ABG pH POC ABG pCO2 POC ABG pO2 ABG pO2 ABG HCO3 ABG Base Excess ABG Hemoglobin Oxyhemoglobin Sodium Potassium Chloride Carbon Dioxide BUN Creatinine Glucose POC Glucose 224 H Lactic Acid Calcium Ionized Calcium Phosphorus Magnesium Direct Bilirubin AST ALT Alkaline Phosphatase Lactate Dehydrogenase Troponin T C-Reactive Protein 1.70 H Total Protein Albumin Prealbumin Triglycerides Cholesterol LDL Cholesterol Direct HDL Cholesterol 25-OH Vitamin D Total PTH Intact Urine pH Urine WBC (Auto) Urine Creatinine Urine Total Protein Fluid Total Protein Vancomycin Trough Rheumatoid Factor Complement C4 Miscellaneous Test Crossmatch 09/12/16 09/12/16 09/13/16 16:51 23:28 04:00 WBC 45.0 H* RBC Hgb 9.4 L Hct MCV 75 L MCH 23 L MCHC RDW 19.0 H Plt Count 470 H Lymph % (Auto) [place] % (Auto) Lymph # [place] # Baso # Seg Neutrophils % Seg Neuts % (Manual) 89.0 H Lymphocytes % (Manual) 5.0 L Monocytes % (Manual) Eosinophils % (Manual) Basophils % (Manual) Nucleated RBC % Seg Neutrophils # Seg Neutrophils # Man 40.1 H Lymphocytes # (Manual) Monocytes # (Manual) Eosinophils # (Manual) Basophils # (Manual) PT INR Fibrinogen dRVVT Confirm Interp Factor V Activity POC ABG pH POC ABG pCO2 POC ABG pO2 ABG pO2 ABG HCO3 ABG Base Excess ABG Hemoglobin Oxyhemoglobin Sodium Potassium Chloride Carbon Dioxide BUN Creatinine Glucose POC Glucose 169 H 150 H Lactic Acid Calcium Ionized Calcium Phosphorus Magnesium Direct Bilirubin AST ALT Alkaline Phosphatase Lactate Dehydrogenase Troponin T C-Reactive Protein Total Protein Albumin Prealbumin Triglycerides Cholesterol LDL Cholesterol Direct HDL Cholesterol 25-OH Vitamin D Total PTH Intact Urine pH Urine WBC (Auto) Urine Creatinine Urine Total Protein Fluid Total Protein Vancomycin Trough Rheumatoid Factor Complement C4 Miscellaneous Test Crossmatch 09/13/16 09/13/16 09/13/16 04:00 11:26 17:31 WBC RBC Hgb Hct MCV MCH MCHC RDW Plt Count Lymph % (Auto) [place] % (Auto) Lymph # [place] # Baso # Seg Neutrophils % Seg Neuts % (Manual) Lymphocytes % (Manual) Monocytes % (Manual) Eosinophils % (Manual) Basophils % (Manual) Nucleated RBC % Seg Neutrophils # Seg Neutrophils # Man Lymphocytes # (Manual) Monocytes # (Manual) Eosinophils # (Manual) Basophils # (Manual) PT INR Fibrinogen dRVVT Confirm Interp Factor V Activity POC ABG pH POC ABG pCO2 POC ABG pO2 ABG pO2 ABG HCO3 ABG Base Excess ABG Hemoglobin Oxyhemoglobin Sodium Potassium Chloride Carbon Dioxide 20 L BUN 116 H Creatinine 3.0 H Glucose 172 H POC Glucose 140 H 183 H Lactic Acid Calcium Ionized Calcium Phosphorus Magnesium Direct Bilirubin AST ALT Alkaline Phosphatase Lactate Dehydrogenase Troponin T C-Reactive Protein Total Protein 6.2 L Albumin 2.9 L Prealbumin Triglycerides Cholesterol LDL Cholesterol Direct HDL Cholesterol 25-OH Vitamin D Total PTH Intact Urine pH Urine WBC (Auto) Urine Creatinine Urine Total Protein Fluid Total Protein Vancomycin Trough Rheumatoid Factor Complement C4 Miscellaneous Test Crossmatch 09/13/16 09/14/16 09/14/16 23:23 04:06 04:07 WBC 29.4 H RBC Hgb 8.9 L Hct 27.3 L MCV 75 L MCH 24 L MCHC RDW 19.1 H Plt Count Lymph % (Auto) [place] % (Auto) Lymph # [place] # Baso # Seg Neutrophils % Seg Neuts % (Manual) 84.0 H Lymphocytes % (Manual) 6.0 L Monocytes % (Manual) 9.0 H Eosinophils % (Manual) Basophils % (Manual) Nucleated RBC % Seg Neutrophils # Seg Neutrophils # Man 24.7 H Lymphocytes # (Manual) Monocytes # (Manual) 2.6 H Eosinophils # (Manual) Basophils # (Manual) PT INR Fibrinogen dRVVT Confirm Interp Factor V Activity POC ABG pH 7.342 L POC ABG pCO2 POC ABG pO2 116 H ABG pO2 ABG HCO3 ABG Base Excess ABG Hemoglobin Oxyhemoglobin Sodium Potassium Chloride Carbon Dioxide BUN Creatinine Glucose POC Glucose 154 H Lactic Acid Calcium Ionized Calcium Phosphorus Magnesium Direct Bilirubin AST ALT Alkaline Phosphatase Lactate Dehydrogenase Troponin T C-Reactive Protein Total Protein Albumin Prealbumin Triglycerides Cholesterol LDL Cholesterol Direct HDL Cholesterol 25-OH Vitamin D Total PTH Intact Urine pH Urine WBC (Auto) Urine Creatinine Urine Total Protein Fluid Total Protein Vancomycin Trough Rheumatoid Factor Complement C4 Miscellaneous Test Crossmatch 09/14/16 09/14/16 09/14/16 04:07 05:29 12:19 WBC RBC Hgb Hct MCV MCH MCHC RDW Plt Count Lymph % (Auto) [place] % (Auto) Lymph # [place] # Baso # Seg Neutrophils % Seg Neuts % (Manual) Lymphocytes % (Manual) Monocytes % (Manual) Eosinophils % (Manual) Basophils % (Manual) Nucleated RBC % Seg Neutrophils # Seg Neutrophils # Man Lymphocytes # (Manual) Monocytes # (Manual) Eosinophils # (Manual) Basophils # (Manual) PT INR Fibrinogen dRVVT Confirm Interp Factor V Activity POC ABG pH POC ABG pCO2 POC ABG pO2 ABG pO2 ABG HCO3 ABG Base Excess ABG Hemoglobin Oxyhemoglobin Sodium 136 L Potassium Chloride Carbon Dioxide 18 L BUN 121 H Creatinine 2.8 H Glucose 214 H POC Glucose 239 H 181 H Lactic Acid Calcium Ionized Calcium Phosphorus Magnesium Direct Bilirubin AST ALT Alkaline Phosphatase Lactate Dehydrogenase Troponin T C-Reactive Protein Total Protein Albumin Prealbumin Triglycerides Cholesterol LDL Cholesterol Direct HDL Cholesterol 25-OH Vitamin D Total PTH Intact Urine pH Urine WBC (Auto) Urine Creatinine Urine Total Protein Fluid Total Protein Vancomycin Trough Rheumatoid Factor Complement C4 Miscellaneous Test Crossmatch 09/14/16 09/14/16 09/15/16 18:12 23:37 05:00 WBC 26.1 H RBC 3.05 L Hgb 7.2 L Hct 22.9 L MCV 75 L MCH 24 L MCHC RDW 19.0 H Plt Count Lymph % (Auto) [place] % (Auto) Lymph # [place] # Baso # Seg Neutrophils % Seg Neuts % (Manual) Lymphocytes % (Manual) Monocytes % (Manual) Eosinophils % (Manual) Basophils % (Manual) Nucleated RBC % Seg Neutrophils # Seg Neutrophils # Man Lymphocytes # (Manual) Monocytes # (Manual) Eosinophils # (Manual) Basophils # (Manual) PT INR Fibrinogen dRVVT Confirm Interp Factor V Activity POC ABG pH POC ABG pCO2 POC ABG pO2 ABG pO2 ABG HCO3 ABG Base Excess ABG Hemoglobin Oxyhemoglobin Sodium Potassium Chloride Carbon Dioxide BUN Creatinine Glucose POC Glucose 266 H 154 H Lactic Acid Calcium Ionized Calcium Phosphorus Magnesium Direct Bilirubin AST ALT Alkaline Phosphatase Lactate Dehydrogenase Troponin T C-Reactive Protein Total Protein Albumin Prealbumin Triglycerides Cholesterol LDL Cholesterol Direct HDL Cholesterol 25-OH Vitamin D Total PTH Intact Urine pH Urine WBC (Auto) Urine Creatinine Urine Total Protein Fluid Total Protein Vancomycin Trough Rheumatoid Factor Complement C4 Miscellaneous Test Crossmatch 09/15/16 09/15/16 09/15/16 05:00 05:17 12:45 WBC RBC Hgb Hct MCV MCH MCHC RDW Plt Count Lymph % (Auto) [place] % (Auto) Lymph # [place] # Baso # Seg Neutrophils % Seg Neuts % (Manual) Lymphocytes % (Manual) Monocytes % (Manual) Eosinophils % (Manual) Basophils % (Manual) Nucleated RBC % Seg Neutrophils # Seg Neutrophils # Man Lymphocytes # (Manual) Monocytes # (Manual) Eosinophils # (Manual) Basophils # (Manual) PT INR Fibrinogen dRVVT Confirm Interp Factor V Activity POC ABG pH POC ABG pCO2 POC ABG pO2 ABG pO2 ABG HCO3 ABG Base Excess ABG Hemoglobin Oxyhemoglobin Sodium Potassium 5.2 H Chloride Carbon Dioxide 18 L BUN 139 H Creatinine 3.7 H Glucose 227 H POC Glucose 226 H 244 H Lactic Acid Calcium 8.3 L Ionized Calcium Phosphorus Magnesium Direct Bilirubin AST ALT Alkaline Phosphatase Lactate Dehydrogenase Troponin T C-Reactive Protein Total Protein Albumin Prealbumin Triglycerides Cholesterol LDL Cholesterol Direct HDL Cholesterol 25-OH Vitamin D Total PTH Intact Urine pH Urine WBC (Auto) Urine Creatinine Urine Total Protein Fluid Total Protein Vancomycin Trough Rheumatoid Factor Complement C4 Miscellaneous Test Crossmatch 09/15/16 09/15/16 09/15/16 14:32 17:33 23:35 WBC RBC Hgb Hct MCV MCH MCHC RDW Plt Count Lymph % (Auto) [place] % (Auto) Lymph # [place] # Baso # Seg Neutrophils % Seg Neuts % (Manual) Lymphocytes % (Manual) Monocytes % (Manual) Eosinophils % (Manual) Basophils % (Manual) Nucleated RBC % Seg Neutrophils # Seg Neutrophils # Man Lymphocytes # (Manual) Monocytes # (Manual) Eosinophils # (Manual) Basophils # (Manual) PT INR Fibrinogen dRVVT Confirm Interp Factor V Activity POC ABG pH POC ABG pCO2 27.7 L POC ABG pO2 120 H ABG pO2 ABG HCO3 ABG Base Excess ABG Hemoglobin Oxyhemoglobin Sodium Potassium Chloride Carbon Dioxide BUN Creatinine Glucose POC Glucose 232 H 167 H Lactic Acid Calcium Ionized Calcium Phosphorus Magnesium Direct Bilirubin AST ALT Alkaline Phosphatase Lactate Dehydrogenase Troponin T C-Reactive Protein Total Protein Albumin Prealbumin Triglycerides Cholesterol LDL Cholesterol Direct HDL Cholesterol 25-OH Vitamin D Total PTH Intact Urine pH Urine WBC (Auto) Urine Creatinine Urine Total Protein Fluid Total Protein Vancomycin Trough Rheumatoid Factor Complement C4 Miscellaneous Test Crossmatch 09/16/16 09/16/16 09/16/16 03:58 10:27 10:27 WBC 19.0 H RBC 2.77 L Hgb 6.5 L Hct 20.9 L MCV 76 L MCH 23 L MCHC RDW 19.3 H Plt Count Lymph % (Auto) 11.0 L [place] % (Auto) Lymph # [place] # 1.1 H Baso # Seg Neutrophils % 82.5 H Seg Neuts % (Manual) Lymphocytes % (Manual) Monocytes % (Manual) Eosinophils % (Manual) Basophils % (Manual) Nucleated RBC % Seg Neutrophils # 15.7 H Seg Neutrophils # Man Lymphocytes # (Manual) Monocytes # (Manual) Eosinophils # (Manual) Basophils # (Manual) PT INR Fibrinogen dRVVT Confirm Interp Factor V Activity POC ABG pH POC ABG pCO2 POC ABG pO2 ABG pO2 ABG HCO3 ABG Base Excess ABG Hemoglobin Oxyhemoglobin Sodium Potassium Chloride 109.3 H Carbon Dioxide 18 L BUN 139 H Creatinine 4.1 H Glucose 144 H POC Glucose 146 H Lactic Acid Calcium 8.1 L Ionized Calcium Phosphorus Magnesium Direct Bilirubin AST ALT Alkaline Phosphatase Lactate Dehydrogenase Troponin T C-Reactive Protein Total Protein Albumin Prealbumin Triglycerides Cholesterol LDL Cholesterol Direct HDL Cholesterol 25-OH Vitamin D Total PTH Intact Urine pH Urine WBC (Auto) Urine Creatinine Urine Total Protein Fluid Total Protein Vancomycin Trough Rheumatoid Factor Complement C4 Miscellaneous Test Crossmatch 09/16/16 09/16/16 09/16/16 12:04 12:10 13:55 WBC RBC Hgb Hct MCV MCH MCHC RDW Plt Count Lymph % (Auto) [place] % (Auto) Lymph # [place] # Baso # Seg Neutrophils % Seg Neuts % (Manual) Lymphocytes % (Manual) Monocytes % (Manual) Eosinophils % (Manual) Basophils % (Manual) Nucleated RBC % Seg Neutrophils # Seg Neutrophils # Man Lymphocytes # (Manual) Monocytes # (Manual) Eosinophils # (Manual) Basophils # (Manual) PT INR Fibrinogen dRVVT Confirm Interp Factor V Activity POC ABG pH POC ABG pCO2 32.9 L POC ABG pO2 ABG pO2 ABG HCO3 ABG Base Excess ABG Hemoglobin Oxyhemoglobin Sodium Potassium Chloride Carbon Dioxide BUN Creatinine Glucose POC Glucose 185 H Lactic Acid Calcium Ionized Calcium Phosphorus Magnesium Direct Bilirubin AST ALT Alkaline Phosphatase Lactate Dehydrogenase Troponin T C-Reactive Protein Total Protein Albumin Prealbumin Triglycerides Cholesterol LDL Cholesterol Direct HDL Cholesterol 25-OH Vitamin D Total PTH Intact Urine pH Urine WBC (Auto) Urine Creatinine Urine Total Protein Fluid Total Protein Vancomycin Trough Rheumatoid Factor Complement C4 Miscellaneous Test Crossmatch See Detail 09/16/16 09/16/16 09/16/16 17:55 19:19 23:48 WBC RBC Hgb Hct MCV MCH MCHC RDW Plt Count Lymph % (Auto) [place] % (Auto) Lymph # [place] # Baso # Seg Neutrophils % Seg Neuts % (Manual) Lymphocytes % (Manual) Monocytes % (Manual) Eosinophils % (Manual) Basophils % (Manual) Nucleated RBC % Seg Neutrophils # Seg Neutrophils # Man Lymphocytes # (Manual) Monocytes # (Manual) Eosinophils # (Manual) Basophils # (Manual) PT INR Fibrinogen dRVVT Confirm Interp Factor V Activity POC ABG pH POC ABG pCO2 POC ABG pO2 ABG pO2 ABG HCO3 ABG Base Excess ABG Hemoglobin Oxyhemoglobin Sodium Potassium Chloride Carbon Dioxide BUN Creatinine Glucose POC Glucose 222 H 107 H Lactic Acid Calcium Ionized Calcium Phosphorus Magnesium Direct Bilirubin AST ALT Alkaline Phosphatase Lactate Dehydrogenase Troponin T C-Reactive Protein Total Protein Albumin Prealbumin Triglycerides Cholesterol LDL Cholesterol Direct HDL Cholesterol 25-OH Vitamin D Total PTH Intact Urine pH Urine WBC (Auto) Urine Creatinine 47.4 H Urine Total Protein 16 H Fluid Total Protein Vancomycin Trough Rheumatoid Factor Complement C4 Miscellaneous Test Crossmatch 09/17/16 09/17/16 09/17/16 03:45 03:45 04:55 WBC 19.6 H RBC 3.41 L Hgb 8.5 L Hct 26.7 L MCV 78 L MCH 25 L MCHC RDW 19.9 H Plt Count Lymph % (Auto) 9.3 L [place] % (Auto) Lymph # [place] # 1.2 H Baso # Seg Neutrophils % 83.9 H Seg Neuts % (Manual) Lymphocytes % (Manual) Monocytes % (Manual) Eosinophils % (Manual) Basophils % (Manual) Nucleated RBC % Seg Neutrophils # 16.4 H Seg Neutrophils # Man Lymphocytes # (Manual) Monocytes # (Manual) Eosinophils # (Manual) Basophils # (Manual) PT INR Fibrinogen dRVVT Confirm Interp Factor V Activity POC ABG pH POC ABG pCO2 POC ABG pO2 ABG pO2 ABG HCO3 ABG Base Excess ABG Hemoglobin Oxyhemoglobin Sodium 146 H Potassium 5.1 H Chloride 110.9 H Carbon Dioxide 16 L BUN 146 H Creatinine 4.0 H Glucose 108 H POC Glucose 133 H Lactic Acid Calcium Ionized Calcium Phosphorus Magnesium 3.00 H Direct Bilirubin AST ALT Alkaline Phosphatase Lactate Dehydrogenase Troponin T C-Reactive Protein Total Protein Albumin Prealbumin Triglycerides Cholesterol LDL Cholesterol Direct HDL Cholesterol 25-OH Vitamin D Total PTH Intact Urine pH Urine WBC (Auto) Urine Creatinine Urine Total Protein Fluid Total Protein Vancomycin Trough Rheumatoid Factor Complement C4 Miscellaneous Test Crossmatch 09/17/16 09/17/16 09/17/16 11:15 17:33 23:47 WBC RBC Hgb Hct MCV MCH MCHC RDW Plt Count Lymph % (Auto) [place] % (Auto) Lymph # [place] # Baso # Seg Neutrophils % Seg Neuts % (Manual) Lymphocytes % (Manual) Monocytes % (Manual) Eosinophils % (Manual) Basophils % (Manual) Nucleated RBC % Seg Neutrophils # Seg Neutrophils # Man Lymphocytes # (Manual) Monocytes # (Manual) Eosinophils # (Manual) Basophils # (Manual) PT INR Fibrinogen dRVVT Confirm Interp Factor V Activity POC ABG pH POC ABG pCO2 POC ABG pO2 ABG pO2 ABG HCO3 ABG Base Excess ABG Hemoglobin Oxyhemoglobin Sodium Potassium Chloride Carbon Dioxide BUN Creatinine Glucose POC Glucose 176 H 246 H 148 H Lactic Acid Calcium Ionized Calcium Phosphorus Magnesium Direct Bilirubin AST ALT Alkaline Phosphatase Lactate Dehydrogenase Troponin T C-Reactive Protein Total Protein Albumin Prealbumin Triglycerides Cholesterol LDL Cholesterol Direct HDL Cholesterol 25-OH Vitamin D Total PTH Intact Urine pH Urine WBC (Auto) Urine Creatinine Urine Total Protein Fluid Total Protein Vancomycin Trough Rheumatoid Factor Complement C4 Miscellaneous Test Crossmatch 09/18/16 09/18/16 09/18/16 05:33 08:31 08:31 WBC 18.0 H RBC 3.17 L Hgb 9.0 L Hct 25.7 L MCV MCH MCHC 35 H RDW 20.4 H Plt Count Lymph % (Auto) [place] % (Auto) Lymph # [place] # Baso # Seg Neutrophils % Seg Neuts % (Manual) Lymphocytes % (Manual) Monocytes % (Manual) Eosinophils % (Manual) Basophils % (Manual) Nucleated RBC % Seg Neutrophils # Seg Neutrophils # Man Lymphocytes # (Manual) Monocytes # (Manual) Eosinophils # (Manual) Basophils # (Manual) PT INR Fibrinogen dRVVT Confirm Interp Factor V Activity POC ABG pH POC ABG pCO2 POC ABG pO2 ABG pO2 ABG HCO3 ABG Base Excess ABG Hemoglobin Oxyhemoglobin Sodium Potassium Chloride Carbon Dioxide 15 L BUN 124 H Creatinine 3.8 H Glucose POC Glucose 120 H Lactic Acid Calcium 8.1 L Ionized Calcium Phosphorus Magnesium Direct Bilirubin AST ALT Alkaline Phosphatase Lactate Dehydrogenase Troponin T C-Reactive Protein Total Protein Albumin Prealbumin Triglycerides Cholesterol LDL Cholesterol Direct HDL Cholesterol 25-OH Vitamin D Total PTH Intact Urine pH Urine WBC (Auto) Urine Creatinine Urine Total Protein Fluid Total Protein Vancomycin Trough Rheumatoid Factor Complement C4 Miscellaneous Test Crossmatch 09/18/16 09/18/16 09/18/16 12:03 15:34 17:50 WBC RBC Hgb Hct MCV MCH MCHC RDW Plt Count Lymph % (Auto) [place] % (Auto) Lymph # [place] # Baso # Seg Neutrophils % Seg Neuts % (Manual) Lymphocytes % (Manual) Monocytes % (Manual) Eosinophils % (Manual) Basophils % (Manual) Nucleated RBC % Seg Neutrophils # Seg Neutrophils # Man Lymphocytes # (Manual) Monocytes # (Manual) Eosinophils # (Manual) Basophils # (Manual) PT INR Fibrinogen dRVVT Confirm Interp Factor V Activity POC ABG pH POC ABG pCO2 25.7 L POC ABG pO2 66 L ABG pO2 ABG HCO3 ABG Base Excess ABG Hemoglobin Oxyhemoglobin Sodium Potassium Chloride Carbon Dioxide BUN Creatinine Glucose POC Glucose 156 H 220 H Lactic Acid Calcium Ionized Calcium Phosphorus Magnesium Direct Bilirubin AST ALT Alkaline Phosphatase Lactate Dehydrogenase Troponin T C-Reactive Protein Total Protein Albumin Prealbumin Triglycerides Cholesterol LDL Cholesterol Direct HDL Cholesterol 25-OH Vitamin D Total PTH Intact Urine pH Urine WBC (Auto) Urine Creatinine Urine Total Protein Fluid Total Protein Vancomycin Trough Rheumatoid Factor Complement C4 Miscellaneous Test Crossmatch 09/19/16 09/19/16 09/19/16 06:21 09:50 09:50 WBC 17.1 H RBC 3.49 L Hgb 9.0 L Hct 28.1 L MCV MCH 26 L MCHC RDW 20.8 H Plt Count Lymph % (Auto) 11.5 L [place] % (Auto) 7.5 H Lymph # [place] # 1.3 H Baso # Seg Neutrophils % 79.8 H Seg Neuts % (Manual) Lymphocytes % (Manual) Monocytes % (Manual) Eosinophils % (Manual) Basophils % (Manual) Nucleated RBC % Seg Neutrophils # 13.7 H Seg Neutrophils # Man Lymphocytes # (Manual) Monocytes # (Manual) Eosinophils # (Manual) Basophils # (Manual) PT INR Fibrinogen dRVVT Confirm Interp Factor V Activity POC ABG pH POC ABG pCO2 POC ABG pO2 ABG pO2 ABG HCO3 ABG Base Excess ABG Hemoglobin Oxyhemoglobin Sodium Potassium Chloride 108.6 H Carbon Dioxide 15 L BUN 125 H Creatinine 4.1 H Glucose 124 H POC Glucose 119 H Lactic Acid Calcium Ionized Calcium Phosphorus Magnesium Direct Bilirubin AST ALT Alkaline Phosphatase Lactate Dehydrogenase Troponin T C-Reactive Protein Total Protein Albumin Prealbumin Triglycerides Cholesterol LDL Cholesterol Direct HDL Cholesterol 25-OH Vitamin D Total PTH Intact Urine pH Urine WBC (Auto) Urine Creatinine Urine Total Protein Fluid Total Protein Vancomycin Trough Rheumatoid Factor Complement C4 Miscellaneous Test Crossmatch 09/19/16 09/19/16 09/19/16 11:25 17:53 23:36 WBC RBC Hgb Hct MCV MCH MCHC RDW Plt Count Lymph % (Auto) [place] % (Auto) Lymph # [place] # Baso # Seg Neutrophils % Seg Neuts % (Manual) Lymphocytes % (Manual) Monocytes % (Manual) Eosinophils % (Manual) Basophils % (Manual) Nucleated RBC % Seg Neutrophils # Seg Neutrophils # Man Lymphocytes # (Manual) Monocytes # (Manual) Eosinophils # (Manual) Basophils # (Manual) PT INR Fibrinogen dRVVT Confirm Interp Factor V Activity POC ABG pH POC ABG pCO2 POC ABG pO2 ABG pO2 ABG HCO3 ABG Base Excess ABG Hemoglobin Oxyhemoglobin Sodium Potassium Chloride Carbon Dioxide BUN Creatinine Glucose POC Glucose 160 H 245 H 121 H Lactic Acid Calcium Ionized Calcium Phosphorus Magnesium Direct Bilirubin AST ALT Alkaline Phosphatase Lactate Dehydrogenase Troponin T C-Reactive Protein Total Protein Albumin Prealbumin Triglycerides Cholesterol LDL Cholesterol Direct HDL Cholesterol 25-OH Vitamin D Total PTH Intact Urine pH Urine WBC (Auto) Urine Creatinine Urine Total Protein Fluid Total Protein Vancomycin Trough Rheumatoid Factor Complement C4 Miscellaneous Test Crossmatch 09/20/16 09/20/16 09/20/16 04:10 04:10 04:10 WBC 17.0 H RBC 3.21 L Hgb 8.2 L Hct 25.5 L MCV MCH 26 L MCHC RDW 20.9 H Plt Count Lymph % (Auto) [place] % (Auto) Lymph # [place] # Baso # Seg Neutrophils % Seg Neuts % (Manual) Lymphocytes % (Manual) Monocytes % (Manual) Eosinophils % (Manual) Basophils % (Manual) Nucleated RBC % Seg Neutrophils # Seg Neutrophils # Man Lymphocytes # (Manual) Monocytes # (Manual) Eosinophils # (Manual) Basophils # (Manual) PT INR Fibrinogen dRVVT Confirm Interp Factor V Activity POC ABG pH POC ABG pCO2 POC ABG pO2 ABG pO2 ABG HCO3 ABG Base Excess ABG Hemoglobin Oxyhemoglobin Sodium Potassium Chloride 111.0 H Carbon Dioxide 16 L BUN 129 H Creatinine 3.7 H Glucose 115 H POC Glucose Lactic Acid Calcium 8.2 L Ionized Calcium Phosphorus Magnesium Direct Bilirubin AST ALT Alkaline Phosphatase Lactate Dehydrogenase Troponin T C-Reactive Protein Total Protein Albumin Prealbumin Triglycerides 243 H Cholesterol LDL Cholesterol Direct HDL Cholesterol 25-OH Vitamin D Total PTH Intact Urine pH Urine WBC (Auto) Urine Creatinine Urine Total Protein Fluid Total Protein Vancomycin Trough Rheumatoid Factor Complement C4 Miscellaneous Test Crossmatch 09/20/16 09/20/16 09/20/16 05:40 11:52 16:50 WBC RBC Hgb Hct MCV MCH MCHC RDW Plt Count Lymph % (Auto) [place] % (Auto) Lymph # [place] # Baso # Seg Neutrophils % Seg Neuts % (Manual) Lymphocytes % (Manual) Monocytes % (Manual) Eosinophils % (Manual) Basophils % (Manual) Nucleated RBC % Seg Neutrophils # Seg Neutrophils # Man Lymphocytes # (Manual) Monocytes # (Manual) Eosinophils # (Manual) Basophils # (Manual) PT INR Fibrinogen dRVVT Confirm Interp Factor V Activity POC ABG pH POC ABG pCO2 POC ABG pO2 ABG pO2 ABG HCO3 ABG Base Excess ABG Hemoglobin Oxyhemoglobin Sodium Potassium Chloride Carbon Dioxide BUN Creatinine Glucose POC Glucose 131 H 183 H 236 H Lactic Acid Calcium Ionized Calcium Phosphorus Magnesium Direct Bilirubin AST ALT Alkaline Phosphatase Lactate Dehydrogenase Troponin T C-Reactive Protein Total Protein Albumin Prealbumin Triglycerides Cholesterol LDL Cholesterol Direct HDL Cholesterol 25-OH Vitamin D Total PTH Intact Urine pH Urine WBC (Auto) Urine Creatinine Urine Total Protein Fluid Total Protein Vancomycin Trough Rheumatoid Factor Complement C4 Miscellaneous Test Crossmatch 09/20/16 09/21/16 09/21/16 23:51 03:30 04:44 WBC RBC Hgb Hct MCV MCH MCHC RDW Plt Count Lymph % (Auto) [place] % (Auto) Lymph # [place] # Baso # Seg Neutrophils % Seg Neuts % (Manual) Lymphocytes % (Manual) Monocytes % (Manual) Eosinophils % (Manual) Basophils % (Manual) Nucleated RBC % Seg Neutrophils # Seg Neutrophils # Man Lymphocytes # (Manual) Monocytes # (Manual) Eosinophils # (Manual) Basophils # (Manual) PT INR Fibrinogen dRVVT Confirm Interp Factor V Activity POC ABG pH POC ABG pCO2 POC ABG pO2 ABG pO2 ABG HCO3 ABG Base Excess ABG Hemoglobin Oxyhemoglobin Sodium Potassium Chloride Carbon Dioxide BUN Creatinine Glucose POC Glucose 114 H 141 H Lactic Acid Calcium Ionized Calcium Phosphorus Magnesium 2.70 H Direct Bilirubin AST ALT Alkaline Phosphatase Lactate Dehydrogenase Troponin T C-Reactive Protein Total Protein Albumin Prealbumin Triglycerides Cholesterol LDL Cholesterol Direct HDL Cholesterol 25-OH Vitamin D Total PTH Intact Urine pH Urine WBC (Auto) Urine Creatinine Urine Total Protein Fluid Total Protein Vancomycin Trough Rheumatoid Factor Complement C4 Miscellaneous Test Crossmatch 09/21/16 09/21/16 09/21/16 07:45 07:45 10:01 WBC 13.8 H RBC 2.94 L Hgb 7.5 L Hct 23.5 L MCV MCH 26 L MCHC RDW 21.2 H Plt Count Lymph % (Auto) 6.9 L [place] % (Auto) 9.4 H Lymph # 0.9 L [place] # 1.3 H Baso # Seg Neutrophils % 83.2 H Seg Neuts % (Manual) Lymphocytes % (Manual) Monocytes % (Manual) Eosinophils % (Manual) Basophils % (Manual) Nucleated RBC % Seg Neutrophils # 11.5 H Seg Neutrophils # Man Lymphocytes # (Manual) Monocytes # (Manual) Eosinophils # (Manual) Basophils # (Manual) PT INR Fibrinogen dRVVT Confirm Interp Factor V Activity POC ABG pH 7.308 L POC ABG pCO2 31.9 L POC ABG pO2 148 H ABG pO2 ABG HCO3 ABG Base Excess ABG Hemoglobin Oxyhemoglobin Sodium 147 H Potassium Chloride 114.2 H Carbon Dioxide 15 L BUN 120 H Creatinine 3.9 H Glucose 156 H POC Glucose Lactic Acid Calcium 8.2 L Ionized Calcium Phosphorus Magnesium Direct Bilirubin AST ALT Alkaline Phosphatase Lactate Dehydrogenase Troponin T C-Reactive Protein Total Protein Albumin Prealbumin Triglycerides Cholesterol LDL Cholesterol Direct HDL Cholesterol 25-OH Vitamin D Total PTH Intact Urine pH Urine WBC (Auto) Urine Creatinine Urine Total Protein Fluid Total Protein Vancomycin Trough Rheumatoid Factor Complement C4 Miscellaneous Test Crossmatch 09/21/16 09/21/16 09/21/16 12:00 12:03 13:00 WBC RBC Hgb Hct MCV MCH MCHC RDW Plt Count Lymph % (Auto) [place] % (Auto) Lymph # [place] # Baso # Seg Neutrophils % Seg Neuts % (Manual) Lymphocytes % (Manual) Monocytes % (Manual) Eosinophils % (Manual) Basophils % (Manual) Nucleated RBC % Seg Neutrophils # Seg Neutrophils # Man Lymphocytes # (Manual) Monocytes # (Manual) Eosinophils # (Manual) Basophils # (Manual) PT INR Fibrinogen dRVVT Confirm Interp Factor V Activity POC ABG pH POC ABG pCO2 POC ABG pO2 ABG pO2 ABG HCO3 ABG Base Excess ABG Hemoglobin Oxyhemoglobin Sodium Potassium Chloride Carbon Dioxide BUN Creatinine Glucose POC Glucose 163 H Lactic Acid Calcium Ionized Calcium Phosphorus Magnesium Direct Bilirubin AST ALT Alkaline Phosphatase Lactate Dehydrogenase Troponin T C-Reactive Protein Total Protein Albumin Prealbumin Triglycerides Cholesterol LDL Cholesterol Direct HDL Cholesterol 25-OH Vitamin D Total PTH Intact Urine pH Urine WBC (Auto) Urine Creatinine 54.8 H Urine Total Protein Fluid Total Protein Vancomycin Trough 2.3 L Rheumatoid Factor Complement C4 Miscellaneous Test Crossmatch 09/21/16 09/21/16 09/22/16 16:51 23:17 06:27 WBC RBC Hgb Hct MCV MCH MCHC RDW Plt Count Lymph % (Auto) [place] % (Auto) Lymph # [place] # Baso # Seg Neutrophils % Seg Neuts % (Manual) Lymphocytes % (Manual) Monocytes % (Manual) Eosinophils % (Manual) Basophils % (Manual) Nucleated RBC % Seg Neutrophils # Seg Neutrophils # Man Lymphocytes # (Manual) Monocytes # (Manual) Eosinophils # (Manual) Basophils # (Manual) PT INR Fibrinogen dRVVT Confirm Interp Factor V Activity POC ABG pH POC ABG pCO2 POC ABG pO2 ABG pO2 ABG HCO3 ABG Base Excess ABG Hemoglobin Oxyhemoglobin Sodium Potassium Chloride Carbon Dioxide BUN Creatinine Glucose POC Glucose 206 H 114 H 115 H Lactic Acid Calcium Ionized Calcium Phosphorus Magnesium Direct Bilirubin AST ALT Alkaline Phosphatase Lactate Dehydrogenase Troponin T C-Reactive Protein Total Protein Albumin Prealbumin Triglycerides Cholesterol LDL Cholesterol Direct HDL Cholesterol 25-OH Vitamin D Total PTH Intact Urine pH Urine WBC (Auto) Urine Creatinine Urine Total Protein Fluid Total Protein Vancomycin Trough Rheumatoid Factor Complement C4 Miscellaneous Test Crossmatch 09/22/16 09/22/16 09/22/16 07:50 07:50 12:00 WBC 17.8 H RBC 3.04 L Hgb 8.0 L Hct 24.7 L MCV MCH 26 L MCHC RDW 21.6 H Plt Count Lymph % (Auto) [place] % (Auto) Lymph # [place] # Baso # Seg Neutrophils % Seg Neuts % (Manual) Lymphocytes % (Manual) Monocytes % (Manual) Eosinophils % (Manual) Basophils % (Manual) Nucleated RBC % Seg Neutrophils # Seg Neutrophils # Man Lymphocytes # (Manual) Monocytes # (Manual) Eosinophils # (Manual) Basophils # (Manual) PT INR Fibrinogen dRVVT Confirm Interp Factor V Activity POC ABG pH POC ABG pCO2 POC ABG pO2 ABG pO2 ABG HCO3 ABG Base Excess ABG Hemoglobin Oxyhemoglobin Sodium 150 H Potassium Chloride 118.2 H Carbon Dioxide 14 L BUN 111 H Creatinine 3.7 H Glucose 157 H POC Glucose 183 H Lactic Acid Calcium Ionized Calcium Phosphorus Magnesium Direct Bilirubin AST ALT Alkaline Phosphatase Lactate Dehydrogenase Troponin T C-Reactive Protein Total Protein Albumin Prealbumin Triglycerides Cholesterol LDL Cholesterol Direct HDL Cholesterol 25-OH Vitamin D Total PTH Intact Urine pH Urine WBC (Auto) Urine Creatinine Urine Total Protein Fluid Total Protein Vancomycin Trough Rheumatoid Factor Complement C4 Miscellaneous Test Crossmatch 09/22/16 09/22/16 09/23/16 17:29 23:10 05:00 WBC 19.2 H RBC 3.13 L Hgb 8.0 L Hct 25.2 L MCV MCH 26 L MCHC RDW 22.1 H Plt Count Lymph % (Auto) [place] % (Auto) Lymph # [place] # Baso # Seg Neutrophils % Seg Neuts % (Manual) 92.0 H Lymphocytes % (Manual) 3.0 L Monocytes % (Manual) Eosinophils % (Manual) Basophils % (Manual) Nucleated RBC % Seg Neutrophils # Seg Neutrophils # Man 17.7 H Lymphocytes # (Manual) 0.6 L Monocytes # (Manual) Eosinophils # (Manual) Basophils # (Manual) PT INR Fibrinogen dRVVT Confirm Interp Factor V Activity POC ABG pH POC ABG pCO2 POC ABG pO2 ABG pO2 ABG HCO3 ABG Base Excess ABG Hemoglobin Oxyhemoglobin Sodium Potassium Chloride Carbon Dioxide BUN Creatinine Glucose POC Glucose 197 H 169 H Lactic Acid Calcium Ionized Calcium Phosphorus Magnesium Direct Bilirubin AST ALT Alkaline Phosphatase Lactate Dehydrogenase Troponin T C-Reactive Protein Total Protein Albumin Prealbumin Triglycerides Cholesterol LDL Cholesterol Direct HDL Cholesterol 25-OH Vitamin D Total PTH Intact Urine pH Urine WBC (Auto) Urine Creatinine Urine Total Protein Fluid Total Protein Vancomycin Trough Rheumatoid Factor Complement C4 Miscellaneous Test Crossmatch 09/23/16 09/23/16 09/23/16 05:00 05:00 05:10 WBC RBC Hgb Hct MCV MCH MCHC RDW Plt Count Lymph % (Auto) [place] % (Auto) Lymph # [place] # Baso # Seg Neutrophils % Seg Neuts % (Manual) Lymphocytes % (Manual) Monocytes % (Manual) Eosinophils % (Manual) Basophils % (Manual) Nucleated RBC % Seg Neutrophils # Seg Neutrophils # Man Lymphocytes # (Manual) Monocytes # (Manual) Eosinophils # (Manual) Basophils # (Manual) PT INR Fibrinogen dRVVT Confirm Interp Factor V Activity POC ABG pH POC ABG pCO2 POC ABG pO2 ABG pO2 ABG HCO3 ABG Base Excess ABG Hemoglobin Oxyhemoglobin Sodium 147 H Potassium 3.2 L Chloride 115.7 H Carbon Dioxide 13 L BUN 111 H Creatinine 3.8 H Glucose 194 H POC Glucose 188 H Lactic Acid Calcium 7.3 L D Ionized Calcium Phosphorus Magnesium Direct Bilirubin AST ALT Alkaline Phosphatase Lactate Dehydrogenase Troponin T C-Reactive Protein 3.20 H Total Protein Albumin Prealbumin Triglycerides Cholesterol LDL Cholesterol Direct HDL Cholesterol 25-OH Vitamin D Total PTH Intact Urine pH Urine WBC (Auto) Urine Creatinine Urine Total Protein Fluid Total Protein Vancomycin Trough Rheumatoid Factor Complement C4 Miscellaneous Test Crossmatch 09/23/16 09/23/16 09/23/16 11:37 12:29 18:01 WBC RBC Hgb Hct MCV MCH MCHC RDW Plt Count Lymph % (Auto) [place] % (Auto) Lymph # [place] # Baso # Seg Neutrophils % Seg Neuts % (Manual) Lymphocytes % (Manual) Monocytes % (Manual) Eosinophils % (Manual) Basophils % (Manual) Nucleated RBC % Seg Neutrophils # Seg Neutrophils # Man Lymphocytes # (Manual) Monocytes # (Manual) Eosinophils # (Manual) Basophils # (Manual) PT INR Fibrinogen dRVVT Confirm Interp Factor V Activity POC ABG pH POC ABG pCO2 18.9 L POC ABG pO2 143 H ABG pO2 ABG HCO3 ABG Base Excess ABG Hemoglobin Oxyhemoglobin Sodium Potassium Chloride Carbon Dioxide BUN Creatinine Glucose POC Glucose 153 H 108 H Lactic Acid Calcium Ionized Calcium Phosphorus Magnesium Direct Bilirubin AST ALT Alkaline Phosphatase Lactate Dehydrogenase Troponin T C-Reactive Protein Total Protein Albumin Prealbumin Triglycerides Cholesterol LDL Cholesterol Direct HDL Cholesterol 25-OH Vitamin D Total PTH Intact Urine pH Urine WBC (Auto) Urine Creatinine Urine Total Protein Fluid Total Protein Vancomycin Trough Rheumatoid Factor Complement C4 Miscellaneous Test Crossmatch 09/23/16 09/23/16 09/24/16 21:19 23:43 05:16 WBC RBC Hgb Hct MCV MCH MCHC RDW Plt Count Lymph % (Auto) [place] % (Auto) Lymph # [place] # Baso # Seg Neutrophils % Seg Neuts % (Manual) Lymphocytes % (Manual) Monocytes % (Manual) Eosinophils % (Manual) Basophils % (Manual) Nucleated RBC % Seg Neutrophils # Seg Neutrophils # Man Lymphocytes # (Manual) Monocytes # (Manual) Eosinophils # (Manual) Basophils # (Manual) PT INR Fibrinogen dRVVT Confirm Interp Factor V Activity POC ABG pH POC ABG pCO2 17.3 L POC ABG pO2 112 H ABG pO2 ABG HCO3 ABG Base Excess ABG Hemoglobin Oxyhemoglobin Sodium Potassium Chloride Carbon Dioxide BUN Creatinine Glucose POC Glucose 143 H 164 H Lactic Acid Calcium Ionized Calcium Phosphorus Magnesium Direct Bilirubin AST ALT Alkaline Phosphatase Lactate Dehydrogenase Troponin T C-Reactive Protein Total Protein Albumin Prealbumin Triglycerides Cholesterol LDL Cholesterol Direct HDL Cholesterol 25-OH Vitamin D Total PTH Intact Urine pH Urine WBC (Auto) Urine Creatinine Urine Total Protein Fluid Total Protein Vancomycin Trough Rheumatoid Factor Complement C4 Miscellaneous Test Crossmatch 09/24/16 09/24/16 09/24/16 05:21 11:58 17:06 WBC RBC Hgb Hct MCV MCH MCHC RDW Plt Count Lymph % (Auto) [place] % (Auto) Lymph # [place] # Baso # Seg Neutrophils % Seg Neuts % (Manual) Lymphocytes % (Manual) Monocytes % (Manual) Eosinophils % (Manual) Basophils % (Manual) Nucleated RBC % Seg Neutrophils # Seg Neutrophils # Man Lymphocytes # (Manual) Monocytes # (Manual) Eosinophils # (Manual) Basophils # (Manual) PT INR Fibrinogen dRVVT Confirm Interp Factor V Activity POC ABG pH POC ABG pCO2 POC ABG pO2 ABG pO2 ABG HCO3 ABG Base Excess ABG Hemoglobin Oxyhemoglobin Sodium Potassium Chloride Carbon Dioxide 10 L BUN 103 H Creatinine 4.3 H Glucose 163 H POC Glucose 173 H 167 H Lactic Acid Calcium 6.5 L Ionized Calcium Phosphorus Magnesium Direct Bilirubin AST ALT Alkaline Phosphatase Lactate Dehydrogenase Troponin T C-Reactive Protein Total Protein Albumin Prealbumin Triglycerides Cholesterol LDL Cholesterol Direct HDL Cholesterol 25-OH Vitamin D Total PTH Intact Urine pH Urine WBC (Auto) Urine Creatinine Urine Total Protein Fluid Total Protein Vancomycin Trough Rheumatoid Factor Complement C4 Miscellaneous Test Crossmatch 09/24/16 09/24/16 09/24/16 20:15 21:02 23:48 WBC RBC Hgb Hct MCV MCH MCHC RDW Plt Count Lymph % (Auto) [place] % (Auto) Lymph # [place] # Baso # Seg Neutrophils % Seg Neuts % (Manual) Lymphocytes % (Manual) Monocytes % (Manual) Eosinophils % (Manual) Basophils % (Manual) Nucleated RBC % Seg Neutrophils # Seg Neutrophils # Man Lymphocytes # (Manual) Monocytes # (Manual) Eosinophils # (Manual) Basophils # (Manual) PT INR Fibrinogen dRVVT Confirm Interp Factor V Activity POC ABG pH 7.288 L POC ABG pCO2 30.2 L 21.5 L POC ABG pO2 32 L 39 L ABG pO2 ABG HCO3 ABG Base Excess ABG Hemoglobin Oxyhemoglobin Sodium Potassium Chloride Carbon Dioxide BUN Creatinine Glucose POC Glucose 109 H Lactic Acid Calcium Ionized Calcium Phosphorus Magnesium Direct Bilirubin AST ALT Alkaline Phosphatase Lactate Dehydrogenase Troponin T C-Reactive Protein Total Protein Albumin Prealbumin Triglycerides Cholesterol LDL Cholesterol Direct HDL Cholesterol 25-OH Vitamin D Total PTH Intact Urine pH Urine WBC (Auto) Urine Creatinine Urine Total Protein Fluid Total Protein Vancomycin Trough Rheumatoid Factor Complement C4 Miscellaneous Test Crossmatch 09/25/16 09/25/16 09/25/16 04:20 04:20 04:20 WBC RBC 2.58 L Hgb 7.0 L Hct 21.0 L MCV MCH 27 L MCHC RDW 23.8 H Plt Count Lymph % (Auto) [place] % (Auto) Lymph # [place] # Baso # Seg Neutrophils % Seg Neuts % (Manual) Lymphocytes % (Manual) 12.0 L Monocytes % (Manual) Eosinophils % (Manual) 7.0 H Basophils % (Manual) 2.0 H Nucleated RBC % Seg Neutrophils # Seg Neutrophils # Man Lymphocytes # (Manual) 0.9 L Monocytes # (Manual) Eosinophils # (Manual) 0.5 H Basophils # (Manual) PT INR Fibrinogen dRVVT Confirm Interp Factor V Activity POC ABG pH POC ABG pCO2 POC ABG pO2 ABG pO2 ABG HCO3 ABG Base Excess ABG Hemoglobin Oxyhemoglobin Sodium Potassium Chloride Carbon Dioxide 15 L BUN 72 H Creatinine 3.8 H Glucose POC Glucose Lactic Acid Calcium 6.0 L Ionized Calcium Phosphorus 4.60 H Magnesium 1.60 L Direct Bilirubin AST ALT Alkaline Phosphatase Lactate Dehydrogenase Troponin T C-Reactive Protein Total Protein Albumin Prealbumin Triglycerides Cholesterol LDL Cholesterol Direct HDL Cholesterol 25-OH Vitamin D Total PTH Intact Urine pH Urine WBC (Auto) Urine Creatinine Urine Total Protein Fluid Total Protein Vancomycin Trough Rheumatoid Factor Complement C4 Miscellaneous Test Crossmatch 09/25/16 09/25/16 09/25/16 04:57 08:02 10:30 WBC RBC Hgb Hct MCV MCH MCHC RDW Plt Count Lymph % (Auto) [place] % (Auto) Lymph # [place] # Baso # Seg Neutrophils % Seg Neuts % (Manual) Lymphocytes % (Manual) Monocytes % (Manual) Eosinophils % (Manual) Basophils % (Manual) Nucleated RBC % Seg Neutrophils # Seg Neutrophils # Man Lymphocytes # (Manual) Monocytes # (Manual) Eosinophils # (Manual) Basophils # (Manual) PT INR Fibrinogen dRVVT Confirm Interp Factor V Activity POC ABG pH POC ABG pCO2 24.7 L POC ABG pO2 152 H ABG pO2 ABG HCO3 ABG Base Excess ABG Hemoglobin Oxyhemoglobin Sodium Potassium Chloride Carbon Dioxide BUN Creatinine Glucose POC Glucose 113 H Lactic Acid Calcium Ionized Calcium Phosphorus Magnesium Direct Bilirubin AST ALT Alkaline Phosphatase Lactate Dehydrogenase Troponin T C-Reactive Protein Total Protein Albumin Prealbumin Triglycerides Cholesterol LDL Cholesterol Direct HDL Cholesterol 25-OH Vitamin D Total PTH Intact Urine pH Urine WBC (Auto) Urine Creatinine Urine Total Protein Fluid Total Protein Vancomycin Trough Rheumatoid Factor Complement C4 Miscellaneous Test Crossmatch See Detail 09/25/16 09/25/16 09/25/16 12:05 17:44 23:47 WBC RBC Hgb Hct MCV MCH MCHC RDW Plt Count Lymph % (Auto) [place] % (Auto) Lymph # [place] # Baso # Seg Neutrophils % Seg Neuts % (Manual) Lymphocytes % (Manual) Monocytes % (Manual) Eosinophils % (Manual) Basophils % (Manual) Nucleated RBC % Seg Neutrophils # Seg Neutrophils # Man Lymphocytes # (Manual) Monocytes # (Manual) Eosinophils # (Manual) Basophils # (Manual) PT INR Fibrinogen dRVVT Confirm Interp Factor V Activity POC ABG pH POC ABG pCO2 POC ABG pO2 ABG pO2 ABG HCO3 ABG Base Excess ABG Hemoglobin Oxyhemoglobin Sodium Potassium Chloride Carbon Dioxide BUN Creatinine Glucose POC Glucose 117 H 119 H 150 H Lactic Acid Calcium Ionized Calcium Phosphorus Magnesium Direct Bilirubin AST ALT Alkaline Phosphatase Lactate Dehydrogenase Troponin T C-Reactive Protein Total Protein Albumin Prealbumin Triglycerides Cholesterol LDL Cholesterol Direct HDL Cholesterol 25-OH Vitamin D Total PTH Intact Urine pH Urine WBC (Auto) Urine Creatinine Urine Total Protein Fluid Total Protein Vancomycin Trough Rheumatoid Factor Complement C4 Miscellaneous Test Crossmatch 09/26/16 09/26/16 09/26/16 04:25 04:25 04:25 WBC RBC 2.65 L Hgb 7.4 L Hct 21.6 L MCV MCH MCHC RDW 22.5 H Plt Count Lymph % (Auto) [place] % (Auto) Lymph # [place] # Baso # Seg Neutrophils % Seg Neuts % (Manual) Lymphocytes % (Manual) 6.0 L Monocytes % (Manual) Eosinophils % (Manual) 11.0 H Basophils % (Manual) Nucleated RBC % Seg Neutrophils # Seg Neutrophils # Man Lymphocytes # (Manual) 0.4 L Monocytes # (Manual) Eosinophils # (Manual) 0.6 H Basophils # (Manual) PT INR Fibrinogen dRVVT Confirm Interp Factor V Activity POC ABG pH POC ABG pCO2 POC ABG pO2 ABG pO2 ABG HCO3 ABG Base Excess ABG Hemoglobin Oxyhemoglobin Sodium Potassium Chloride 97.0 L Carbon Dioxide 19 L BUN 43 H Creatinine 2.6 H Glucose 130 H POC Glucose Lactic Acid 4.40 H* Calcium 6.7 L Ionized Calcium Phosphorus Magnesium Direct Bilirubin AST ALT Alkaline Phosphatase Lactate Dehydrogenase Troponin T C-Reactive Protein Total Protein Albumin Prealbumin Triglycerides Cholesterol LDL Cholesterol Direct HDL Cholesterol 25-OH Vitamin D Total PTH Intact Urine pH Urine WBC (Auto) Urine Creatinine Urine Total Protein Fluid Total Protein Vancomycin Trough Rheumatoid Factor Complement C4 Miscellaneous Test Crossmatch 09/26/16 09/26/16 09/26/16 05:20 11:44 12:12 WBC RBC Hgb Hct MCV MCH MCHC RDW Plt Count Lymph % (Auto) [place] % (Auto) Lymph # [place] # Baso # Seg Neutrophils % Seg Neuts % (Manual) Lymphocytes % (Manual) Monocytes % (Manual) Eosinophils % (Manual) Basophils % (Manual) Nucleated RBC % Seg Neutrophils # Seg Neutrophils # Man Lymphocytes # (Manual) Monocytes # (Manual) Eosinophils # (Manual) Basophils # (Manual) PT INR Fibrinogen dRVVT Confirm Interp Factor V Activity POC ABG pH POC ABG pCO2 27.0 L POC ABG pO2 69 L ABG pO2 ABG HCO3 ABG Base Excess ABG Hemoglobin Oxyhemoglobin Sodium Potassium Chloride Carbon Dioxide BUN Creatinine Glucose POC Glucose 121 H 128 H Lactic Acid Calcium Ionized Calcium Phosphorus Magnesium Direct Bilirubin AST ALT Alkaline Phosphatase Lactate Dehydrogenase Troponin T C-Reactive Protein Total Protein Albumin Prealbumin Triglycerides Cholesterol LDL Cholesterol Direct HDL Cholesterol 25-OH Vitamin D Total PTH Intact Urine pH Urine WBC (Auto) Urine Creatinine Urine Total Protein Fluid Total Protein Vancomycin Trough Rheumatoid Factor Complement C4 Miscellaneous Test Crossmatch 09/26/16 09/26/16 09/27/16 18:31 23:40 08:20 WBC RBC Hgb Hct MCV MCH MCHC RDW Plt Count Lymph % (Auto) [place] % (Auto) Lymph # [place] # Baso # Seg Neutrophils % Seg Neuts % (Manual) Lymphocytes % (Manual) Monocytes % (Manual) Eosinophils % (Manual) Basophils % (Manual) Nucleated RBC % Seg Neutrophils # Seg Neutrophils # Man Lymphocytes # (Manual) Monocytes # (Manual) Eosinophils # (Manual) Basophils # (Manual) PT INR Fibrinogen dRVVT Confirm Interp Factor V Activity POC ABG pH POC ABG pCO2 POC ABG pO2 ABG pO2 ABG HCO3 ABG Base Excess ABG Hemoglobin Oxyhemoglobin Sodium Potassium Chloride Carbon Dioxide BUN Creatinine Glucose POC Glucose 120 H 133 H Lactic Acid 4.10 H* Calcium Ionized Calcium Phosphorus Magnesium Direct Bilirubin AST ALT Alkaline Phosphatase Lactate Dehydrogenase Troponin T C-Reactive Protein Total Protein Albumin Prealbumin Triglycerides Cholesterol LDL Cholesterol Direct HDL Cholesterol 25-OH Vitamin D Total PTH Intact Urine pH Urine WBC (Auto) Urine Creatinine Urine Total Protein Fluid Total Protein Vancomycin Trough Rheumatoid Factor Complement C4 Miscellaneous Test Crossmatch 09/27/16 09/27/16 09/27/16 11:23 15:00 18:15 WBC RBC Hgb Hct MCV MCH MCHC RDW Plt Count Lymph % (Auto) [place] % (Auto) Lymph # [place] # Baso # Seg Neutrophils % Seg Neuts % (Manual) Lymphocytes % (Manual) Monocytes % (Manual) Eosinophils % (Manual) Basophils % (Manual) Nucleated RBC % Seg Neutrophils # Seg Neutrophils # Man Lymphocytes # (Manual) Monocytes # (Manual) Eosinophils # (Manual) Basophils # (Manual) PT INR Fibrinogen dRVVT Confirm Interp Factor V Activity POC ABG pH 7.459 H POC ABG pCO2 27.1 L POC ABG pO2 140 H ABG pO2 ABG HCO3 ABG Base Excess ABG Hemoglobin Oxyhemoglobin Sodium Potassium Chloride Carbon Dioxide BUN Creatinine Glucose POC Glucose 114 H 127 H Lactic Acid Calcium Ionized Calcium Phosphorus Magnesium Direct Bilirubin AST ALT Alkaline Phosphatase Lactate Dehydrogenase Troponin T C-Reactive Protein Total Protein Albumin Prealbumin Triglycerides Cholesterol LDL Cholesterol Direct HDL Cholesterol 25-OH Vitamin D Total PTH Intact Urine pH Urine WBC (Auto) Urine Creatinine Urine Total Protein Fluid Total Protein Vancomycin Trough Rheumatoid Factor Complement C4 Miscellaneous Test Crossmatch 09/27/16 09/27/16 09/28/16 Unknown Unknown 03:45 WBC RBC 2.49 L Hgb 6.8 L Hct 20.7 L MCV MCH 27 L MCHC RDW 22.1 H Plt Count Lymph % (Auto) [place] % (Auto) Lymph # [place] # Baso # Seg Neutrophils % Seg Neuts % (Manual) 32.0 L Lymphocytes % (Manual) 12.0 L Monocytes % (Manual) 11.0 H Eosinophils % (Manual) 10.0 H Basophils % (Manual) Nucleated RBC % Seg Neutrophils # Seg Neutrophils # Man Lymphocytes # (Manual) 1.0 L Monocytes # (Manual) 0.9 H Eosinophils # (Manual) 0.8 H Basophils # (Manual) PT INR Fibrinogen dRVVT Confirm Interp Factor V Activity POC ABG pH POC ABG pCO2 POC ABG pO2 ABG pO2 ABG HCO3 ABG Base Excess ABG Hemoglobin Oxyhemoglobin Sodium 135 L 135 L Potassium 3.5 L Chloride 93.6 L 94.4 L Carbon Dioxide 17 L 21 L BUN 45 H 28 H Creatinine 3.3 H 2.5 H Glucose 106 H POC Glucose Lactic Acid Calcium 7.3 L 7.1 L Ionized Calcium Phosphorus Magnesium Direct Bilirubin AST ALT Alkaline Phosphatase Lactate Dehydrogenase Troponin T C-Reactive Protein Total Protein Albumin Prealbumin Triglycerides Cholesterol LDL Cholesterol Direct HDL Cholesterol 25-OH Vitamin D Total PTH Intact Urine pH Urine WBC (Auto) Urine Creatinine Urine Total Protein Fluid Total Protein Vancomycin Trough Rheumatoid Factor Complement C4 Miscellaneous Test Crossmatch 09/28/16 09/28/16 09/28/16 03:45 07:25 11:58 WBC 13.3 H RBC 3.01 L Hgb 8.4 L Hct 25.0 L MCV MCH MCHC RDW 20.5 H Plt Count 128 L Lymph % (Auto) [place] % (Auto) Lymph # [place] # Baso # Seg Neutrophils % Seg Neuts % (Manual) Lymphocytes % (Manual) 7.0 L Monocytes % (Manual) Eosinophils % (Manual) 6.0 H Basophils % (Manual) Nucleated RBC % Seg Neutrophils # Seg Neutrophils # Man Lymphocytes # (Manual) 0.9 L Monocytes # (Manual) Eosinophils # (Manual) 0.8 H Basophils # (Manual) PT INR Fibrinogen dRVVT Confirm Interp Factor V Activity POC ABG pH POC ABG pCO2 POC ABG pO2 ABG pO2 ABG HCO3 ABG Base Excess ABG Hemoglobin Oxyhemoglobin Sodium Potassium Chloride Carbon Dioxide BUN Creatinine Glucose POC Glucose 121 H Lactic Acid 4.50 H* Calcium Ionized Calcium Phosphorus Magnesium Direct Bilirubin AST ALT Alkaline Phosphatase Lactate Dehydrogenase Troponin T C-Reactive Protein Total Protein Albumin Prealbumin Triglycerides Cholesterol LDL Cholesterol Direct HDL Cholesterol 25-OH Vitamin D Total PTH Intact Urine pH Urine WBC (Auto) Urine Creatinine Urine Total Protein Fluid Total Protein Vancomycin Trough Rheumatoid Factor Complement C4 Miscellaneous Test Crossmatch 09/29/16 09/29/16 09/29/16 06:45 06:45 06:45 WBC 14.9 H RBC 2.74 L Hgb 7.6 L Hct 23.2 L MCV MCH MCHC RDW 20.5 H Plt Count 81 L Lymph % (Auto) [place] % (Auto) Lymph # [place] # Baso # Seg Neutrophils % Seg Neuts % (Manual) 81.0 H Lymphocytes % (Manual) 4.0 L Monocytes % (Manual) Eosinophils % (Manual) Basophils % (Manual) Nucleated RBC % Seg Neutrophils # Seg Neutrophils # Man 12.1 H Lymphocytes # (Manual) 0.6 L Monocytes # (Manual) Eosinophils # (Manual) Basophils # (Manual) PT INR Fibrinogen dRVVT Confirm Interp Factor V Activity POC ABG pH POC ABG pCO2 POC ABG pO2 ABG pO2 ABG HCO3 ABG Base Excess ABG Hemoglobin Oxyhemoglobin Sodium 133 L Potassium 3.4 L Chloride 92.5 L Carbon Dioxide 21 L BUN 33 H Creatinine 3.0 H Glucose POC Glucose Lactic Acid Calcium 6.6 L Ionized Calcium Phosphorus Magnesium 1.40 L Direct Bilirubin 0.9 H AST ALT Alkaline Phosphatase Lactate Dehydrogenase Troponin T C-Reactive Protein Total Protein 4.3 L Albumin 1.3 L Prealbumin Triglycerides Cholesterol LDL Cholesterol Direct HDL Cholesterol 25-OH Vitamin D Total PTH Intact Urine pH Urine WBC (Auto) Urine Creatinine Urine Total Protein Fluid Total Protein Vancomycin Trough Rheumatoid Factor Complement C4 Miscellaneous Test Crossmatch 09/29/16 09/29/16 09/30/16 17:52 20:12 00:07 WBC RBC Hgb Hct MCV MCH MCHC RDW Plt Count Lymph % (Auto) [place] % (Auto) Lymph # [place] # Baso # Seg Neutrophils % Seg Neuts % (Manual) Lymphocytes % (Manual) Monocytes % (Manual) Eosinophils % (Manual) Basophils % (Manual) Nucleated RBC % Seg Neutrophils # Seg Neutrophils # Man Lymphocytes # (Manual) Monocytes # (Manual) Eosinophils # (Manual) Basophils # (Manual) PT INR Fibrinogen dRVVT Confirm Interp Factor V Activity POC ABG pH POC ABG pCO2 POC ABG pO2 ABG pO2 ABG HCO3 ABG Base Excess ABG Hemoglobin Oxyhemoglobin Sodium Potassium Chloride Carbon Dioxide BUN Creatinine Glucose POC Glucose 50 L 51 L Lactic Acid Calcium Ionized Calcium Phosphorus Magnesium Direct Bilirubin AST ALT Alkaline Phosphatase Lactate Dehydrogenase Troponin T 0.204 H* C-Reactive Protein Total Protein Albumin Prealbumin Triglycerides Cholesterol 31 L LDL Cholesterol Direct 4 L HDL Cholesterol 3 L 25-OH Vitamin D Total PTH Intact Urine pH Urine WBC (Auto) Urine Creatinine Urine Total Protein Fluid Total Protein Vancomycin Trough Rheumatoid Factor Complement C4 Miscellaneous Test Crossmatch 09/30/16 09/30/16 09/30/16 01:30 05:15 06:10 WBC RBC Hgb Hct MCV MCH MCHC RDW Plt Count Lymph % (Auto) [place] % (Auto) Lymph # [place] # Baso # Seg Neutrophils % Seg Neuts % (Manual) Lymphocytes % (Manual) Monocytes % (Manual) Eosinophils % (Manual) Basophils % (Manual) Nucleated RBC % Seg Neutrophils # Seg Neutrophils # Man Lymphocytes # (Manual) Monocytes # (Manual) Eosinophils # (Manual) Basophils # (Manual) PT INR Fibrinogen dRVVT Confirm Interp Factor V Activity POC ABG pH POC ABG pCO2 POC ABG pO2 ABG pO2 ABG HCO3 ABG Base Excess ABG Hemoglobin Oxyhemoglobin Sodium 133 L Potassium 3.2 L Chloride 93.2 L Carbon Dioxide 19 L BUN 36 H Creatinine 3.2 H Glucose 104 H POC Glucose 167 H 146 H Lactic Acid Calcium 6.4 L Ionized Calcium Phosphorus Magnesium 1.60 L Direct Bilirubin AST ALT Alkaline Phosphatase Lactate Dehydrogenase Troponin T C-Reactive Protein Total Protein Albumin Prealbumin Triglycerides Cholesterol LDL Cholesterol Direct HDL Cholesterol 25-OH Vitamin D Total PTH Intact Urine pH Urine WBC (Auto) Urine Creatinine Urine Total Protein Fluid Total Protein Vancomycin Trough Rheumatoid Factor Complement C4 Miscellaneous Test Crossmatch 09/30/16 09/30/16 09/30/16 11:26 13:39 18:38 WBC RBC Hgb Hct MCV MCH MCHC RDW Plt Count Lymph % (Auto) [place] % (Auto) Lymph # [place] # Baso # Seg Neutrophils % Seg Neuts % (Manual) Lymphocytes % (Manual) Monocytes % (Manual) Eosinophils % (Manual) Basophils % (Manual) Nucleated RBC % Seg Neutrophils # Seg Neutrophils # Man Lymphocytes # (Manual) Monocytes # (Manual) Eosinophils # (Manual) Basophils # (Manual) PT INR Fibrinogen dRVVT Confirm Interp Factor V Activity POC ABG pH 7.479 H POC ABG pCO2 29.8 L POC ABG pO2 117 H ABG pO2 ABG HCO3 ABG Base Excess ABG Hemoglobin Oxyhemoglobin Sodium Potassium Chloride Carbon Dioxide BUN Creatinine Glucose POC Glucose 140 H 122 H Lactic Acid Calcium Ionized Calcium Phosphorus Magnesium Direct Bilirubin AST ALT Alkaline Phosphatase Lactate Dehydrogenase Troponin T C-Reactive Protein Total Protein Albumin Prealbumin Triglycerides Cholesterol LDL Cholesterol Direct HDL Cholesterol 25-OH Vitamin D Total PTH Intact Urine pH Urine WBC (Auto) Urine Creatinine Urine Total Protein Fluid Total Protein Vancomycin Trough Rheumatoid Factor Complement C4 Miscellaneous Test Crossmatch 10/01/16 10/01/16 10/01/16 06:00 06:00 12:37 WBC 12.6 H RBC 2.75 L Hgb 7.3 L Hct 23.3 L MCV MCH 27 L MCHC RDW 20.6 H Plt Count 72 L Lymph % (Auto) [place] % (Auto) Lymph # [place] # Baso # Seg Neutrophils % Seg Neuts % (Manual) 31.0 L Lymphocytes % (Manual) 8.0 L Monocytes % (Manual) Eosinophils % (Manual) Basophils % (Manual) Nucleated RBC % 3.0 H Seg Neutrophils # Seg Neutrophils # Man Lymphocytes # (Manual) 1.0 L Monocytes # (Manual) Eosinophils # (Manual) Basophils # (Manual) PT INR Fibrinogen dRVVT Confirm Interp Factor V Activity POC ABG pH POC ABG pCO2 POC ABG pO2 ABG pO2 ABG HCO3 ABG Base Excess ABG Hemoglobin Oxyhemoglobin Sodium 127 L Potassium Chloride 86.8 L Carbon Dioxide 20 L BUN 42 H Creatinine 3.5 H Glucose POC Glucose 65 L Lactic Acid Calcium 7.0 L Ionized Calcium Phosphorus Magnesium Direct Bilirubin AST ALT Alkaline Phosphatase Lactate Dehydrogenase Troponin T C-Reactive Protein Total Protein Albumin Prealbumin Triglycerides Cholesterol LDL Cholesterol Direct HDL Cholesterol 25-OH Vitamin D Total PTH Intact Urine pH Urine WBC (Auto) Urine Creatinine Urine Total Protein Fluid Total Protein Vancomycin Trough Rheumatoid Factor Complement C4 Miscellaneous Test Crossmatch 10/01/16 10/01/16 10/02/16 17:39 23:32 00:59 WBC RBC Hgb Hct MCV MCH MCHC RDW Plt Count Lymph % (Auto) [place] % (Auto) Lymph # [place] # Baso # Seg Neutrophils % Seg Neuts % (Manual) Lymphocytes % (Manual) Monocytes % (Manual) Eosinophils % (Manual) Basophils % (Manual) Nucleated RBC % Seg Neutrophils # Seg Neutrophils # Man Lymphocytes # (Manual) Monocytes # (Manual) Eosinophils # (Manual) Basophils # (Manual) PT INR Fibrinogen dRVVT Confirm Interp Factor V Activity POC ABG pH POC ABG pCO2 POC ABG pO2 ABG pO2 ABG HCO3 ABG Base Excess ABG Hemoglobin Oxyhemoglobin Sodium Potassium Chloride Carbon Dioxide BUN Creatinine Glucose POC Glucose 107 H 52 L 145 H Lactic Acid Calcium Ionized Calcium Phosphorus Magnesium Direct Bilirubin AST ALT Alkaline Phosphatase Lactate Dehydrogenase Troponin T C-Reactive Protein Total Protein Albumin Prealbumin Triglycerides Cholesterol LDL Cholesterol Direct HDL Cholesterol 25-OH Vitamin D Total PTH Intact Urine pH Urine WBC (Auto) Urine Creatinine Urine Total Protein Fluid Total Protein Vancomycin Trough Rheumatoid Factor Complement C4 Miscellaneous Test Crossmatch 10/02/16 10/02/16 10/02/16 10:30 10:50 10:50 WBC 14.7 H RBC 2.76 L Hgb 7.4 L Hct 23.6 L MCV MCH 27 L MCHC RDW 20.2 H Plt Count 79 L Lymph % (Auto) [place] % (Auto) Lymph # [place] # Baso # Seg Neutrophils % Seg Neuts % (Manual) 86.0 H Lymphocytes % (Manual) 6.0 L Monocytes % (Manual) Eosinophils % (Manual) Basophils % (Manual) Nucleated RBC % Seg Neutrophils # Seg Neutrophils # Man 12.6 H Lymphocytes # (Manual) 0.9 L Monocytes # (Manual) Eosinophils # (Manual) Basophils # (Manual) PT INR Fibrinogen dRVVT Confirm Interp Factor V Activity POC ABG pH 7.486 H POC ABG pCO2 30.1 L POC ABG pO2 108 H ABG pO2 ABG HCO3 ABG Base Excess ABG Hemoglobin Oxyhemoglobin Sodium 131 L Potassium 3.4 L Chloride 89.9 L Carbon Dioxide BUN 26 H Creatinine 2.6 H Glucose POC Glucose Lactic Acid Calcium 7.0 L Ionized Calcium Phosphorus Magnesium Direct Bilirubin AST ALT Alkaline Phosphatase Lactate Dehydrogenase Troponin T C-Reactive Protein Total Protein Albumin Prealbumin Triglycerides Cholesterol LDL Cholesterol Direct HDL Cholesterol 25-OH Vitamin D Total PTH Intact Urine pH Urine WBC (Auto) Urine Creatinine Urine Total Protein Fluid Total Protein Vancomycin Trough Rheumatoid Factor Complement C4 Miscellaneous Test Crossmatch 10/02/16 10/03/16 10/03/16 23:45 00:45 05:10 WBC 12.9 H RBC 2.77 L Hgb 7.6 L Hct 23.7 L MCV MCH 27 L MCHC RDW 19.7 H Plt Count 89 L Lymph % (Auto) [place] % (Auto) Lymph # [place] # Baso # Seg Neutrophils % Seg Neuts % (Manual) Lymphocytes % (Manual) 8.0 L Monocytes % (Manual) Eosinophils % (Manual) Basophils % (Manual) Nucleated RBC % Seg Neutrophils # 11.9 H Seg Neutrophils # Man Lymphocytes # (Manual) 1.0 L Monocytes # (Manual) Eosinophils # (Manual) Basophils # (Manual) PT INR Fibrinogen dRVVT Confirm Interp Factor V Activity POC ABG pH POC ABG pCO2 POC ABG pO2 ABG pO2 ABG HCO3 ABG Base Excess ABG Hemoglobin Oxyhemoglobin Sodium Potassium Chloride Carbon Dioxide BUN Creatinine Glucose POC Glucose 55 L 199 H Lactic Acid Calcium Ionized Calcium Phosphorus Magnesium Direct Bilirubin AST ALT Alkaline Phosphatase Lactate Dehydrogenase Troponin T C-Reactive Protein Total Protein Albumin Prealbumin Triglycerides Cholesterol LDL Cholesterol Direct HDL Cholesterol 25-OH Vitamin D Total PTH Intact Urine pH Urine WBC (Auto) Urine Creatinine Urine Total Protein Fluid Total Protein Vancomycin Trough Rheumatoid Factor Complement C4 Miscellaneous Test Crossmatch 10/03/16 10/03/16 10/03/16 05:10 12:14 13:18 WBC RBC Hgb Hct MCV MCH MCHC RDW Plt Count Lymph % (Auto) [place] % (Auto) Lymph # [place] # Baso # Seg Neutrophils % Seg Neuts % (Manual) Lymphocytes % (Manual) Monocytes % (Manual) Eosinophils % (Manual) Basophils % (Manual) Nucleated RBC % Seg Neutrophils # Seg Neutrophils # Man Lymphocytes # (Manual) Monocytes # (Manual) Eosinophils # (Manual) Basophils # (Manual) PT INR Fibrinogen dRVVT Confirm Interp Factor V Activity POC ABG pH POC ABG pCO2 POC ABG pO2 ABG pO2 ABG HCO3 ABG Base Excess ABG Hemoglobin Oxyhemoglobin Sodium 129 L Potassium 3.3 L Chloride 88.8 L Carbon Dioxide 20 L BUN 29 H Creatinine 2.8 H Glucose POC Glucose 68 L 127 H Lactic Acid Calcium 7.2 L Ionized Calcium Phosphorus Magnesium Direct Bilirubin AST ALT Alkaline Phosphatase Lactate Dehydrogenase Troponin T C-Reactive Protein Total Protein Albumin Prealbumin Triglycerides Cholesterol LDL Cholesterol Direct HDL Cholesterol 25-OH Vitamin D Total PTH Intact Urine pH Urine WBC (Auto) Urine Creatinine Urine Total Protein Fluid Total Protein Vancomycin Trough Rheumatoid Factor Complement C4 Miscellaneous Test Crossmatch 10/03/16 10/03/16 10/03/16 14:42 18:21 19:09 WBC RBC Hgb Hct MCV MCH MCHC RDW Plt Count Lymph % (Auto) [place] % (Auto) Lymph # [place] # Baso # Seg Neutrophils % Seg Neuts % (Manual) Lymphocytes % (Manual) Monocytes % (Manual) Eosinophils % (Manual) Basophils % (Manual) Nucleated RBC % Seg Neutrophils # Seg Neutrophils # Man Lymphocytes # (Manual) Monocytes # (Manual) Eosinophils # (Manual) Basophils # (Manual) PT INR Fibrinogen dRVVT Confirm Interp Factor V Activity POC ABG pH 7.499 H POC ABG pCO2 28.4 L POC ABG pO2 44 L ABG pO2 ABG HCO3 ABG Base Excess ABG Hemoglobin Oxyhemoglobin Sodium Potassium Chloride Carbon Dioxide BUN Creatinine Glucose POC Glucose 64 L 205 H Lactic Acid Calcium Ionized Calcium Phosphorus Magnesium Direct Bilirubin AST ALT Alkaline Phosphatase Lactate Dehydrogenase Troponin T C-Reactive Protein Total Protein Albumin Prealbumin Triglycerides Cholesterol LDL Cholesterol Direct HDL Cholesterol 25-OH Vitamin D Total PTH Intact Urine pH Urine WBC (Auto) Urine Creatinine Urine Total Protein Fluid Total Protein Vancomycin Trough Rheumatoid Factor Complement C4 Miscellaneous Test Crossmatch 10/03/16 10/04/16 10/04/16 23:33 04:18 06:30 WBC RBC 2.54 L Hgb 7.1 L Hct 21.7 L MCV MCH MCHC RDW 19.5 H Plt Count 76 L Lymph % (Auto) [place] % (Auto) Lymph # [place] # Baso # Seg Neutrophils % Seg Neuts % (Manual) 88.0 H Lymphocytes % (Manual) 6.0 L Monocytes % (Manual) Eosinophils % (Manual) Basophils % (Manual) Nucleated RBC % Seg Neutrophils # Seg Neutrophils # Man 8.8 H Lymphocytes # (Manual) 0.6 L Monocytes # (Manual) Eosinophils # (Manual) Basophils # (Manual) PT INR Fibrinogen dRVVT Confirm Interp Factor V Activity POC ABG pH 7.461 H POC ABG pCO2 33.6 L POC ABG pO2 211 H ABG pO2 ABG HCO3 ABG Base Excess ABG Hemoglobin Oxyhemoglobin Sodium Potassium Chloride Carbon Dioxide BUN Creatinine Glucose POC Glucose 136 H Lactic Acid Calcium Ionized Calcium Phosphorus Magnesium Direct Bilirubin AST ALT Alkaline Phosphatase Lactate Dehydrogenase Troponin T C-Reactive Protein Total Protein Albumin Prealbumin Triglycerides Cholesterol LDL Cholesterol Direct HDL Cholesterol 25-OH Vitamin D Total PTH Intact Urine pH Urine WBC (Auto) Urine Creatinine Urine Total Protein Fluid Total Protein Vancomycin Trough Rheumatoid Factor Complement C4 Miscellaneous Test Crossmatch 10/04/16 10/04/16 10/04/16 06:30 11:45 17:54 WBC RBC Hgb Hct MCV MCH MCHC RDW Plt Count Lymph % (Auto) [place] % (Auto) Lymph # [place] # Baso # Seg Neutrophils % Seg Neuts % (Manual) Lymphocytes % (Manual) Monocytes % (Manual) Eosinophils % (Manual) Basophils % (Manual) Nucleated RBC % Seg Neutrophils # Seg Neutrophils # Man Lymphocytes # (Manual) Monocytes # (Manual) Eosinophils # (Manual) Basophils # (Manual) PT INR Fibrinogen dRVVT Confirm Interp Factor V Activity POC ABG pH POC ABG pCO2 POC ABG pO2 ABG pO2 ABG HCO3 ABG Base Excess ABG Hemoglobin Oxyhemoglobin Sodium 128 L Potassium Chloride 87.4 L Carbon Dioxide 20 L BUN 34 H Creatinine 2.9 H Glucose 127 H POC Glucose 158 H 160 H Lactic Acid Calcium 7.4 L Ionized Calcium Phosphorus Magnesium Direct Bilirubin AST ALT Alkaline Phosphatase Lactate Dehydrogenase Troponin T C-Reactive Protein Total Protein Albumin Prealbumin Triglycerides Cholesterol LDL Cholesterol Direct HDL Cholesterol 25-OH Vitamin D Total PTH Intact Urine pH Urine WBC (Auto) Urine Creatinine Urine Total Protein Fluid Total Protein Vancomycin Trough Rheumatoid Factor Complement C4 Miscellaneous Test Crossmatch 10/04/16 10/05/16 10/05/16 23:25 04:30 05:00 WBC RBC 2.64 L Hgb 7.5 L Hct 22.6 L MCV MCH MCHC RDW 19.3 H Plt Count 80 L Lymph % (Auto) [place] % (Auto) Lymph # [place] # Baso # Seg Neutrophils % Seg Neuts % (Manual) Lymphocytes % (Manual) 12.0 L Monocytes % (Manual) Eosinophils % (Manual) Basophils % (Manual) Nucleated RBC % Seg Neutrophils # Seg Neutrophils # Man Lymphocytes # (Manual) Monocytes # (Manual) Eosinophils # (Manual) Basophils # (Manual) PT INR Fibrinogen dRVVT Confirm Interp Factor V Activity POC ABG pH 7.475 H POC ABG pCO2 33.3 L POC ABG pO2 140 H ABG pO2 ABG HCO3 ABG Base Excess ABG Hemoglobin Oxyhemoglobin Sodium Potassium Chloride Carbon Dioxide BUN Creatinine Glucose POC Glucose 141 H Lactic Acid Calcium Ionized Calcium Phosphorus Magnesium Direct Bilirubin AST ALT Alkaline Phosphatase Lactate Dehydrogenase Troponin T C-Reactive Protein Total Protein Albumin Prealbumin Triglycerides Cholesterol LDL Cholesterol Direct HDL Cholesterol 25-OH Vitamin D Total PTH Intact Urine pH Urine WBC (Auto) Urine Creatinine Urine Total Protein Fluid Total Protein Vancomycin Trough Rheumatoid Factor Complement C4 Miscellaneous Test Crossmatch 10/05/16 10/05/16 10/05/16 05:00 05:09 12:58 WBC RBC Hgb Hct MCV MCH MCHC RDW Plt Count Lymph % (Auto) [place] % (Auto) Lymph # [place] # Baso # Seg Neutrophils % Seg Neuts % (Manual) Lymphocytes % (Manual) Monocytes % (Manual) Eosinophils % (Manual) Basophils % (Manual) Nucleated RBC % Seg Neutrophils # Seg Neutrophils # Man Lymphocytes # (Manual) Monocytes # (Manual) Eosinophils # (Manual) Basophils # (Manual) PT INR Fibrinogen dRVVT Confirm Interp Factor V Activity POC ABG pH POC ABG pCO2 POC ABG pO2 ABG pO2 ABG HCO3 ABG Base Excess ABG Hemoglobin Oxyhemoglobin Sodium 131 L Potassium Chloride 94.0 L Carbon Dioxide 20 L BUN 22 H Creatinine 2.0 H Glucose 123 H POC Glucose 166 H 179 H Lactic Acid Calcium 7.7 L Ionized Calcium Phosphorus 2.20 L D Magnesium Direct Bilirubin AST ALT Alkaline Phosphatase Lactate Dehydrogenase Troponin T C-Reactive Protein Total Protein Albumin Prealbumin Triglycerides Cholesterol LDL Cholesterol Direct HDL Cholesterol 25-OH Vitamin D Total PTH Intact Urine pH Urine WBC (Auto) Urine Creatinine Urine Total Protein Fluid Total Protein Vancomycin Trough Rheumatoid Factor Complement C4 Miscellaneous Test Crossmatch 10/05/16 10/05/16 10/05/16 15:50 18:53 23:12 WBC RBC Hgb Hct MCV MCH MCHC RDW Plt Count Lymph % (Auto) [place] % (Auto) Lymph # [place] # Baso # Seg Neutrophils % Seg Neuts % (Manual) Lymphocytes % (Manual) Monocytes % (Manual) Eosinophils % (Manual) Basophils % (Manual) Nucleated RBC % Seg Neutrophils # Seg Neutrophils # Man Lymphocytes # (Manual) Monocytes # (Manual) Eosinophils # (Manual) Basophils # (Manual) PT INR Fibrinogen dRVVT Confirm Interp Factor V Activity POC ABG pH POC ABG pCO2 POC ABG pO2 ABG pO2 ABG HCO3 ABG Base Excess ABG Hemoglobin Oxyhemoglobin Sodium Potassium Chloride Carbon Dioxide BUN Creatinine Glucose POC Glucose 150 H 164 H Lactic Acid Calcium Ionized Calcium Phosphorus Magnesium Direct Bilirubin AST ALT Alkaline Phosphatase Lactate Dehydrogenase Troponin T C-Reactive Protein Total Protein Albumin Prealbumin Triglycerides Cholesterol LDL Cholesterol Direct HDL Cholesterol 25-OH Vitamin D Total PTH Intact Urine pH Urine WBC (Auto) Urine Creatinine Urine Total Protein Fluid Total Protein Vancomycin Trough Rheumatoid Factor Complement C4 Miscellaneous Test Crossmatch See Detail 10/06/16 10/06/16 10/06/16 03:50 03:50 04:53 WBC RBC 3.00 L Hgb 8.6 L Hct 25.8 L MCV MCH MCHC RDW 17.9 H Plt Count 65 L Lymph % (Auto) [place] % (Auto) Lymph # [place] # Baso # Seg Neutrophils % Seg Neuts % (Manual) 30.0 L Lymphocytes % (Manual) 5.0 L Monocytes % (Manual) Eosinophils % (Manual) Basophils % (Manual) Nucleated RBC % Seg Neutrophils # Seg Neutrophils # Man Lymphocytes # (Manual) 0.4 L Monocytes # (Manual) Eosinophils # (Manual) Basophils # (Manual) PT INR Fibrinogen dRVVT Confirm Interp Factor V Activity POC ABG pH 7.310 L POC ABG pCO2 49.0 H POC ABG pO2 ABG pO2 ABG HCO3 ABG Base Excess ABG Hemoglobin Oxyhemoglobin Sodium 133 L Potassium Chloride 95.9 L Carbon Dioxide BUN 26 H Creatinine 2.0 H Glucose 116 H POC Glucose Lactic Acid Calcium 7.8 L Ionized Calcium Phosphorus Magnesium Direct Bilirubin AST ALT Alkaline Phosphatase Lactate Dehydrogenase Troponin T C-Reactive Protein Total Protein Albumin Prealbumin Triglycerides Cholesterol LDL Cholesterol Direct HDL Cholesterol 25-OH Vitamin D Total PTH Intact Urine pH Urine WBC (Auto) Urine Creatinine Urine Total Protein Fluid Total Protein Vancomycin Trough Rheumatoid Factor Complement C4 Miscellaneous Test Crossmatch 10/06/16 10/06/16 10/06/16 05:23 11:52 18:34 WBC RBC Hgb Hct MCV MCH MCHC RDW Plt Count Lymph % (Auto) [place] % (Auto) Lymph # [place] # Baso # Seg Neutrophils % Seg Neuts % (Manual) Lymphocytes % (Manual) Monocytes % (Manual) Eosinophils % (Manual) Basophils % (Manual) Nucleated RBC % Seg Neutrophils # Seg Neutrophils # Man Lymphocytes # (Manual) Monocytes # (Manual) Eosinophils # (Manual) Basophils # (Manual) PT INR Fibrinogen dRVVT Confirm Interp Factor V Activity POC ABG pH POC ABG pCO2 POC ABG pO2 ABG pO2 ABG HCO3 ABG Base Excess ABG Hemoglobin Oxyhemoglobin Sodium Potassium Chloride Carbon Dioxide BUN Creatinine Glucose POC Glucose 126 H 116 H 129 H Lactic Acid Calcium Ionized Calcium Phosphorus Magnesium Direct Bilirubin AST ALT Alkaline Phosphatase Lactate Dehydrogenase Troponin T C-Reactive Protein Total Protein Albumin Prealbumin Triglycerides Cholesterol LDL Cholesterol Direct HDL Cholesterol 25-OH Vitamin D Total PTH Intact Urine pH Urine WBC (Auto) Urine Creatinine Urine Total Protein Fluid Total Protein Vancomycin Trough Rheumatoid Factor Complement C4 Miscellaneous Test Crossmatch 10/07/16 10/07/16 10/07/16 03:45 05:00 10:00 WBC 17.0 H RBC 2.68 L Hgb 7.3 L Hct 25.3 L MCV MCH 27 L MCHC 29 L RDW 19.6 H Plt Count 74 L Lymph % (Auto) [place] % (Auto) Lymph # [place] # Baso # Seg Neutrophils % Seg Neuts % (Manual) Lymphocytes % (Manual) 12.0 L Monocytes % (Manual) Eosinophils % (Manual) Basophils % (Manual) Nucleated RBC % 4.0 H Seg Neutrophils # Seg Neutrophils # Man 10.7 H Lymphocytes # (Manual) Monocytes # (Manual) Eosinophils # (Manual) Basophils # (Manual) PT INR Fibrinogen dRVVT Confirm Interp Factor V Activity POC ABG pH POC ABG pCO2 POC ABG pO2 ABG pO2 ABG HCO3 ABG Base Excess ABG Hemoglobin Oxyhemoglobin Sodium 130 L Potassium 3.2 L Chloride 93.9 L Carbon Dioxide 20 L BUN 44 H Creatinine 2.7 H Glucose 129 H POC Glucose Lactic Acid Calcium 7.4 L Ionized Calcium Phosphorus Magnesium Direct Bilirubin AST ALT 6 L Alkaline Phosphatase 195 H Lactate Dehydrogenase Troponin T C-Reactive Protein Total Protein 4.9 L Albumin 1.0 L Prealbumin Triglycerides Cholesterol LDL Cholesterol Direct HDL Cholesterol 25-OH Vitamin D Total PTH Intact Urine pH Urine WBC (Auto) Urine Creatinine Urine Total Protein Fluid Total Protein Vancomycin Trough Rheumatoid Factor Complement C4 Miscellaneous Test Flexitest 1 H Crossmatch 10/07/16 10/07/16 10/07/16 10:00 11:24 18:10 WBC RBC Hgb Hct MCV MCH MCHC RDW Plt Count Lymph % (Auto) [place] % (Auto) Lymph # [place] # Baso # Seg Neutrophils % Seg Neuts % (Manual) Lymphocytes % (Manual) Monocytes % (Manual) Eosinophils % (Manual) Basophils % (Manual) Nucleated RBC % Seg Neutrophils # Seg Neutrophils # Man Lymphocytes # (Manual) Monocytes # (Manual) Eosinophils # (Manual) Basophils # (Manual) PT INR Fibrinogen dRVVT Confirm Interp Factor V Activity POC ABG pH POC ABG pCO2 POC ABG pO2 ABG pO2 ABG HCO3 ABG Base Excess ABG Hemoglobin Oxyhemoglobin Sodium Potassium Chloride Carbon Dioxide BUN Creatinine Glucose POC Glucose 116 H 130 H Lactic Acid Calcium Ionized Calcium Phosphorus Magnesium Direct Bilirubin AST ALT Alkaline Phosphatase Lactate Dehydrogenase Troponin T C-Reactive Protein 19.40 H Total Protein Albumin Prealbumin Triglycerides Cholesterol LDL Cholesterol Direct HDL Cholesterol 25-OH Vitamin D Total PTH Intact Urine pH Urine WBC (Auto) Urine Creatinine Urine Total Protein Fluid Total Protein Vancomycin Trough Rheumatoid Factor Complement C4 Miscellaneous Test Crossmatch 10/07/16 10/08/16 10/08/16 18:30 00:00 04:00 WBC RBC Hgb Hct MCV MCH MCHC RDW Plt Count Lymph % (Auto) [place] % (Auto) Lymph # [place] # Baso # Seg Neutrophils % Seg Neuts % (Manual) Lymphocytes % (Manual) Monocytes % (Manual) Eosinophils % (Manual) Basophils % (Manual) Nucleated RBC % Seg Neutrophils # Seg Neutrophils # Man Lymphocytes # (Manual) Monocytes # (Manual) Eosinophils # (Manual) Basophils # (Manual) PT INR Fibrinogen dRVVT Confirm Interp Factor V Activity POC ABG pH POC ABG pCO2 POC ABG pO2 ABG pO2 ABG HCO3 ABG Base Excess ABG Hemoglobin Oxyhemoglobin Sodium 132 L Potassium 3.3 L Chloride 93.6 L Carbon Dioxide 17 L BUN 59 H Creatinine 2.7 H Glucose 121 H POC Glucose 122 H Lactic Acid Calcium 7.6 L Ionized Calcium Phosphorus Magnesium Direct Bilirubin AST ALT Alkaline Phosphatase Lactate Dehydrogenase Troponin T C-Reactive Protein Total Protein Albumin Prealbumin Triglycerides Cholesterol LDL Cholesterol Direct HDL Cholesterol 25-OH Vitamin D Total PTH Intact Urine pH Urine WBC (Auto) > 182.0 H Urine Creatinine Urine Total Protein Fluid Total Protein Vancomycin Trough Rheumatoid Factor Complement C4 Miscellaneous Test Crossmatch 10/08/16 10/08/16 10/08/16 04:30 05:30 11:51 WBC RBC 5.15 H Hgb 14.4 H D Hct 44.5 H D MCV MCH MCHC RDW 19.5 H Plt Count 56 L Lymph % (Auto) [place] % (Auto) Lymph # [place] # Baso # Seg Neutrophils % Seg Neuts % (Manual) 24.0 L Lymphocytes % (Manual) 8.0 L Monocytes % (Manual) Eosinophils % (Manual) Basophils % (Manual) Nucleated RBC % 9.0 H Seg Neutrophils # Seg Neutrophils # Man Lymphocytes # (Manual) 0.7 L Monocytes # (Manual) Eosinophils # (Manual) Basophils # (Manual) PT INR Fibrinogen dRVVT Confirm Interp Factor V Activity POC ABG pH POC ABG pCO2 POC ABG pO2 ABG pO2 ABG HCO3 ABG Base Excess ABG Hemoglobin Oxyhemoglobin Sodium Potassium Chloride Carbon Dioxide BUN Creatinine Glucose POC Glucose 125 H 150 H Lactic Acid Calcium Ionized Calcium Phosphorus Magnesium Direct Bilirubin AST ALT Alkaline Phosphatase Lactate Dehydrogenase Troponin T C-Reactive Protein Total Protein Albumin Prealbumin Triglycerides Cholesterol LDL Cholesterol Direct HDL Cholesterol 25-OH Vitamin D Total PTH Intact Urine pH Urine WBC (Auto) Urine Creatinine Urine Total Protein Fluid Total Protein Vancomycin Trough Rheumatoid Factor Complement C4 Miscellaneous Test Crossmatch 10/08/16 10/08/16 10/08/16 12:49 17:07 19:30 WBC RBC Hgb 7.1 L D Hct 22.4 L D MCV MCH MCHC RDW Plt Count Lymph % (Auto) [place] % (Auto) Lymph # [place] # Baso # Seg Neutrophils % Seg Neuts % (Manual) Lymphocytes % (Manual) Monocytes % (Manual) Eosinophils % (Manual) Basophils % (Manual) Nucleated RBC % Seg Neutrophils # Seg Neutrophils # Man Lymphocytes # (Manual) Monocytes # (Manual) Eosinophils # (Manual) Basophils # (Manual) PT INR Fibrinogen dRVVT Confirm Interp Factor V Activity POC ABG pH POC ABG pCO2 28.2 L POC ABG pO2 111 H ABG pO2 ABG HCO3 ABG Base Excess ABG Hemoglobin Oxyhemoglobin Sodium Potassium Chloride Carbon Dioxide BUN Creatinine Glucose POC Glucose 145 H Lactic Acid Calcium Ionized Calcium Phosphorus Magnesium Direct Bilirubin AST ALT Alkaline Phosphatase Lactate Dehydrogenase Troponin T C-Reactive Protein Total Protein Albumin Prealbumin Triglycerides Cholesterol LDL Cholesterol Direct HDL Cholesterol 25-OH Vitamin D Total PTH Intact Urine pH Urine WBC (Auto) Urine Creatinine Urine Total Protein Fluid Total Protein Vancomycin Trough Rheumatoid Factor Complement C4 Miscellaneous Test Crossmatch 10/08/16 10/09/16 10/09/16 19:30 03:45 03:45 WBC 12.6 H RBC 2.36 L Hgb 6.7 L Hct 21.1 L MCV MCH MCHC RDW 19.5 H Plt Count 75 L Lymph % (Auto) [place] % (Auto) Lymph # [place] # Baso # Seg Neutrophils % Seg Neuts % (Manual) Lymphocytes % (Manual) Monocytes % (Manual) 10.0 H Eosinophils % (Manual) Basophils % (Manual) Nucleated RBC % 3.0 H Seg Neutrophils # Seg Neutrophils # Man Lymphocytes # (Manual) Monocytes # (Manual) 1.3 H Eosinophils # (Manual) Basophils # (Manual) PT 18.0 H INR 1.41 H Fibrinogen dRVVT Confirm Interp Factor V Activity POC ABG pH POC ABG pCO2 POC ABG pO2 ABG pO2 ABG HCO3 ABG Base Excess ABG Hemoglobin Oxyhemoglobin Sodium 135 L Potassium Chloride Carbon Dioxide 17 L BUN 81 H Creatinine 3.2 H Glucose 109 H POC Glucose Lactic Acid Calcium 7.4 L Ionized Calcium Phosphorus 4.60 H D Magnesium Direct Bilirubin AST ALT Alkaline Phosphatase Lactate Dehydrogenase Troponin T C-Reactive Protein Total Protein Albumin Prealbumin Triglycerides Cholesterol LDL Cholesterol Direct HDL Cholesterol 25-OH Vitamin D Total PTH Intact Urine pH Urine WBC (Auto) Urine Creatinine Urine Total Protein Fluid Total Protein Vancomycin Trough Rheumatoid Factor Complement C4 Miscellaneous Test Crossmatch 10/09/16 10/09/16 10/09/16 03:45 05:14 07:20 WBC RBC Hgb Hct MCV MCH MCHC RDW Plt Count Lymph % (Auto) [place] % (Auto) Lymph # [place] # Baso # Seg Neutrophils % Seg Neuts % (Manual) Lymphocytes % (Manual) Monocytes % (Manual) Eosinophils % (Manual) Basophils % (Manual) Nucleated RBC % Seg Neutrophils # Seg Neutrophils # Man Lymphocytes # (Manual) Monocytes # (Manual) Eosinophils # (Manual) Basophils # (Manual) PT 19.0 H INR 1.51 H Fibrinogen dRVVT Confirm Interp Factor V Activity POC ABG pH POC ABG pCO2 POC ABG pO2 ABG pO2 ABG HCO3 ABG Base Excess ABG Hemoglobin Oxyhemoglobin Sodium Potassium Chloride Carbon Dioxide BUN Creatinine Glucose POC Glucose 151 H Lactic Acid Calcium Ionized Calcium Phosphorus Magnesium Direct Bilirubin AST ALT Alkaline Phosphatase Lactate Dehydrogenase Troponin T C-Reactive Protein Total Protein Albumin Prealbumin Triglycerides Cholesterol LDL Cholesterol Direct HDL Cholesterol 25-OH Vitamin D Total PTH Intact Urine pH Urine WBC (Auto) Urine Creatinine Urine Total Protein Fluid Total Protein Vancomycin Trough Rheumatoid Factor Complement C4 Miscellaneous Test Crossmatch See Detail 10/09/16 10/09/16 10/09/16 11:46 16:20 16:43 WBC RBC Hgb 7.2 L Hct 22.2 L MCV MCH MCHC RDW Plt Count Lymph % (Auto) [place] % (Auto) Lymph # [place] # Baso # Seg Neutrophils % Seg Neuts % (Manual) Lymphocytes % (Manual) Monocytes % (Manual) Eosinophils % (Manual) Basophils % (Manual) Nucleated RBC % Seg Neutrophils # Seg Neutrophils # Man Lymphocytes # (Manual) Monocytes # (Manual) Eosinophils # (Manual) Basophils # (Manual) PT INR Fibrinogen dRVVT Confirm Interp Factor V Activity POC ABG pH POC ABG pCO2 POC ABG pO2 ABG pO2 ABG HCO3 ABG Base Excess ABG Hemoglobin Oxyhemoglobin Sodium Potassium Chloride Carbon Dioxide BUN Creatinine Glucose POC Glucose 133 H 141 H Lactic Acid Calcium Ionized Calcium Phosphorus Magnesium Direct Bilirubin AST ALT Alkaline Phosphatase Lactate Dehydrogenase Troponin T C-Reactive Protein Total Protein Albumin Prealbumin Triglycerides Cholesterol LDL Cholesterol Direct HDL Cholesterol 25-OH Vitamin D Total PTH Intact Urine pH Urine WBC (Auto) Urine Creatinine Urine Total Protein Fluid Total Protein Vancomycin Trough Rheumatoid Factor Complement C4 Miscellaneous Test Crossmatch 10/10/16 10/10/16 10/10/16 05:00 05:00 11:19 WBC 18.5 H RBC 2.19 L Hgb 6.4 L Hct 19.6 L* MCV MCH MCHC RDW 19.3 H Plt Count 93 L Lymph % (Auto) [place] % (Auto) Lymph # [place] # Baso # Seg Neutrophils % Seg Neuts % (Manual) Lymphocytes % (Manual) 10.0 L Monocytes % (Manual) Eosinophils % (Manual) Basophils % (Manual) Nucleated RBC % 4.0 H Seg Neutrophils # Seg Neutrophils # Man 11.3 H Lymphocytes # (Manual) Monocytes # (Manual) Eosinophils # (Manual) Basophils # (Manual) PT INR Fibrinogen dRVVT Confirm Interp Factor V Activity POC ABG pH POC ABG pCO2 POC ABG pO2 ABG pO2 ABG HCO3 ABG Base Excess ABG Hemoglobin Oxyhemoglobin Sodium Potassium 5.7 H D Chloride Carbon Dioxide 16 L BUN 94 H Creatinine 3.1 H Glucose 131 H POC Glucose 153 H Lactic Acid Calcium 8.2 L Ionized Calcium Phosphorus 5.10 H Magnesium 2.40 H Direct Bilirubin 0.3 H AST ALT < 5 L Alkaline Phosphatase 319 H Lactate Dehydrogenase Troponin T C-Reactive Protein Total Protein 5.1 L Albumin 1.0 L Prealbumin Triglycerides Cholesterol LDL Cholesterol Direct HDL Cholesterol 25-OH Vitamin D Total PTH Intact Urine pH Urine WBC (Auto) Urine Creatinine Urine Total Protein Fluid Total Protein Vancomycin Trough Rheumatoid Factor Complement C4 Miscellaneous Test Crossmatch 10/10/16 10/10/16 10/11/16 17:50 23:30 04:15 WBC RBC Hgb Hct MCV MCH MCHC RDW Plt Count Lymph % (Auto) [place] % (Auto) Lymph # [place] # Baso # Seg Neutrophils % Seg Neuts % (Manual) Lymphocytes % (Manual) Monocytes % (Manual) Eosinophils % (Manual) Basophils % (Manual) Nucleated RBC % Seg Neutrophils # Seg Neutrophils # Man Lymphocytes # (Manual) Monocytes # (Manual) Eosinophils # (Manual) Basophils # (Manual) PT INR Fibrinogen dRVVT Confirm Interp Factor V Activity POC ABG pH POC ABG pCO2 POC ABG pO2 ABG pO2 ABG HCO3 ABG Base Excess ABG Hemoglobin Oxyhemoglobin Sodium Potassium Chloride 96.4 L Carbon Dioxide 21 L BUN 57 H Creatinine 2.1 H Glucose 151 H POC Glucose 146 H 141 H Lactic Acid Calcium 8.3 L Ionized Calcium Phosphorus Magnesium Direct Bilirubin AST ALT Alkaline Phosphatase Lactate Dehydrogenase Troponin T C-Reactive Protein Total Protein Albumin Prealbumin Triglycerides Cholesterol LDL Cholesterol Direct HDL Cholesterol 25-OH Vitamin D Total PTH Intact Urine pH Urine WBC (Auto) Urine Creatinine Urine Total Protein Fluid Total Protein Vancomycin Trough Rheumatoid Factor Complement C4 Miscellaneous Test Crossmatch 10/11/16 10/11/16 10/11/16 04:15 04:15 05:30 WBC 28.3 H RBC 3.12 L Hgb 9.3 L Hct 28.7 L D MCV MCH MCHC RDW 17.7 H Plt Count 128 L Lymph % (Auto) [place] % (Auto) Lymph # [place] # Baso # Seg Neutrophils % Seg Neuts % (Manual) Lymphocytes % (Manual) Monocytes % (Manual) Eosinophils % (Manual) Basophils % (Manual) Nucleated RBC % Seg Neutrophils # Seg Neutrophils # Man Lymphocytes # (Manual) Monocytes # (Manual) Eosinophils # (Manual) Basophils # (Manual) PT INR Fibrinogen dRVVT Confirm Interp Factor V Activity POC ABG pH POC ABG pCO2 POC ABG pO2 ABG pO2 ABG HCO3 ABG Base Excess ABG Hemoglobin Oxyhemoglobin Sodium Potassium Chloride Carbon Dioxide BUN Creatinine Glucose POC Glucose 167 H Lactic Acid Calcium Ionized Calcium Phosphorus Magnesium Direct Bilirubin AST ALT Alkaline Phosphatase Lactate Dehydrogenase Troponin T C-Reactive Protein 15.80 H Total Protein Albumin Prealbumin Triglycerides Cholesterol LDL Cholesterol Direct HDL Cholesterol 25-OH Vitamin D Total PTH Intact Urine pH Urine WBC (Auto) Urine Creatinine Urine Total Protein Fluid Total Protein Vancomycin Trough Rheumatoid Factor Complement C4 Miscellaneous Test Crossmatch 10/11/16 10/11/16 10/11/16 11:40 15:49 23:57 WBC RBC Hgb Hct MCV MCH MCHC RDW Plt Count Lymph % (Auto) [place] % (Auto) Lymph # [place] # Baso # Seg Neutrophils % Seg Neuts % (Manual) Lymphocytes % (Manual) Monocytes % (Manual) Eosinophils % (Manual) Basophils % (Manual) Nucleated RBC % Seg Neutrophils # Seg Neutrophils # Man Lymphocytes # (Manual) Monocytes # (Manual) Eosinophils # (Manual) Basophils # (Manual) PT INR Fibrinogen dRVVT Confirm Interp Factor V Activity POC ABG pH POC ABG pCO2 POC ABG pO2 ABG pO2 ABG HCO3 ABG Base Excess ABG Hemoglobin Oxyhemoglobin Sodium Potassium Chloride Carbon Dioxide BUN Creatinine Glucose POC Glucose 139 H 168 H 161 H Lactic Acid Calcium Ionized Calcium Phosphorus Magnesium Direct Bilirubin AST ALT Alkaline Phosphatase Lactate Dehydrogenase Troponin T C-Reactive Protein Total Protein Albumin Prealbumin Triglycerides Cholesterol LDL Cholesterol Direct HDL Cholesterol 25-OH Vitamin D Total PTH Intact Urine pH Urine WBC (Auto) Urine Creatinine Urine Total Protein Fluid Total Protein Vancomycin Trough Rheumatoid Factor Complement C4 Miscellaneous Test Crossmatch 10/12/16 10/12/16 10/12/16 04:40 04:40 05:44 WBC 22.5 H RBC 2.88 L Hgb 8.8 L Hct 26.8 L MCV MCH MCHC RDW 17.8 H Plt Count Lymph % (Auto) [place] % (Auto) Lymph # [place] # Baso # Seg Neutrophils % Seg Neuts % (Manual) Lymphocytes % (Manual) Monocytes % (Manual) Eosinophils % (Manual) Basophils % (Manual) Nucleated RBC % Seg Neutrophils # Seg Neutrophils # Man Lymphocytes # (Manual) Monocytes # (Manual) Eosinophils # (Manual) Basophils # (Manual) PT INR Fibrinogen dRVVT Confirm Interp Factor V Activity POC ABG pH POC ABG pCO2 POC ABG pO2 ABG pO2 ABG HCO3 ABG Base Excess ABG Hemoglobin Oxyhemoglobin Sodium 134 L Potassium Chloride 93.0 L Carbon Dioxide BUN 74 H Creatinine 2.5 H Glucose 137 H POC Glucose 158 H Lactic Acid Calcium 8.2 L Ionized Calcium Phosphorus Magnesium Direct Bilirubin AST ALT Alkaline Phosphatase Lactate Dehydrogenase Troponin T C-Reactive Protein Total Protein Albumin Prealbumin Triglycerides Cholesterol LDL Cholesterol Direct HDL Cholesterol 25-OH Vitamin D Total PTH Intact Urine pH Urine WBC (Auto) Urine Creatinine Urine Total Protein Fluid Total Protein Vancomycin Trough Rheumatoid Factor Complement C4 Miscellaneous Test Crossmatch 10/12/16 10/12/16 10/12/16 12:27 18:18 23:46 WBC RBC Hgb Hct MCV MCH MCHC RDW Plt Count Lymph % (Auto) [place] % (Auto) Lymph # [place] # Baso # Seg Neutrophils % Seg Neuts % (Manual) Lymphocytes % (Manual) Monocytes % (Manual) Eosinophils % (Manual) Basophils % (Manual) Nucleated RBC % Seg Neutrophils # Seg Neutrophils # Man Lymphocytes # (Manual) Monocytes # (Manual) Eosinophils # (Manual) Basophils # (Manual) PT INR Fibrinogen dRVVT Confirm Interp Factor V Activity POC ABG pH POC ABG pCO2 POC ABG pO2 ABG pO2 ABG HCO3 ABG Base Excess ABG Hemoglobin Oxyhemoglobin Sodium Potassium Chloride Carbon Dioxide BUN Creatinine Glucose POC Glucose 153 H 140 H 150 H Lactic Acid Calcium Ionized Calcium Phosphorus Magnesium Direct Bilirubin AST ALT Alkaline Phosphatase Lactate Dehydrogenase Troponin T C-Reactive Protein Total Protein Albumin Prealbumin Triglycerides Cholesterol LDL Cholesterol Direct HDL Cholesterol 25-OH Vitamin D Total PTH Intact Urine pH Urine WBC (Auto) Urine Creatinine Urine Total Protein Fluid Total Protein Vancomycin Trough Rheumatoid Factor Complement C4 Miscellaneous Test Crossmatch 10/13/16 10/13/16 10/13/16 06:22 09:20 12:29 WBC RBC Hgb Hct MCV MCH MCHC RDW Plt Count Lymph % (Auto) [place] % (Auto) Lymph # [place] # Baso # Seg Neutrophils % Seg Neuts % (Manual) Lymphocytes % (Manual) Monocytes % (Manual) Eosinophils % (Manual) Basophils % (Manual) Nucleated RBC % Seg Neutrophils # Seg Neutrophils # Man Lymphocytes # (Manual) Monocytes # (Manual) Eosinophils # (Manual) Basophils # (Manual) PT INR Fibrinogen dRVVT Confirm Interp Factor V Activity POC ABG pH POC ABG pCO2 POC ABG pO2 ABG pO2 ABG HCO3 ABG Base Excess ABG Hemoglobin Oxyhemoglobin Sodium Potassium Chloride Carbon Dioxide BUN Creatinine Glucose POC Glucose 165 H 193 H Lactic Acid Calcium Ionized Calcium Phosphorus Magnesium Direct Bilirubin AST ALT Alkaline Phosphatase Lactate Dehydrogenase Troponin T C-Reactive Protein Total Protein Albumin Prealbumin Triglycerides Cholesterol LDL Cholesterol Direct HDL Cholesterol 25-OH Vitamin D Total PTH Intact Urine pH Urine WBC (Auto) Urine Creatinine Urine Total Protein Fluid Total Protein Vancomycin Trough Rheumatoid Factor Complement C4 Miscellaneous Test Flexitest 1 H Crossmatch 10/13/16 10/13/16 10/13/16 18:09 Unknown Unknown WBC 23.4 H RBC 2.83 L Hgb 8.7 L Hct 26.1 L MCV MCH MCHC RDW 18.1 H Plt Count Lymph % (Auto) [place] % (Auto) Lymph # [place] # Baso # Seg Neutrophils % Seg Neuts % (Manual) Lymphocytes % (Manual) Monocytes % (Manual) Eosinophils % (Manual) Basophils % (Manual) Nucleated RBC % Seg Neutrophils # Seg Neutrophils # Man Lymphocytes # (Manual) Monocytes # (Manual) Eosinophils # (Manual) Basophils # (Manual) PT INR Fibrinogen dRVVT Confirm Interp Factor V Activity POC ABG pH POC ABG pCO2 POC ABG pO2 ABG pO2 ABG HCO3 ABG Base Excess ABG Hemoglobin Oxyhemoglobin Sodium Potassium Chloride 95.8 L Carbon Dioxide BUN 82 H Creatinine 2.6 H Glucose 152 H POC Glucose 166 H Lactic Acid Calcium Ionized Calcium Phosphorus Magnesium Direct Bilirubin AST ALT Alkaline Phosphatase Lactate Dehydrogenase Troponin T C-Reactive Protein Total Protein Albumin Prealbumin Triglycerides Cholesterol LDL Cholesterol Direct HDL Cholesterol 25-OH Vitamin D Total PTH Intact Urine pH Urine WBC (Auto) Urine Creatinine Urine Total Protein Fluid Total Protein Vancomycin Trough Rheumatoid Factor Complement C4 Miscellaneous Test Crossmatch 10/14/16 10/14/16 10/14/16 05:38 06:35 08:10 WBC 20.7 H RBC 2.81 L Hgb 8.4 L Hct 27.2 L MCV MCH MCHC RDW 19.4 H Plt Count Lymph % (Auto) [place] % (Auto) Lymph # [place] # Baso # Seg Neutrophils % Seg Neuts % (Manual) Lymphocytes % (Manual) Monocytes % (Manual) Eosinophils % (Manual) Basophils % (Manual) Nucleated RBC % Seg Neutrophils # Seg Neutrophils # Man Lymphocytes # (Manual) Monocytes # (Manual) Eosinophils # (Manual) Basophils # (Manual) PT INR Fibrinogen dRVVT Confirm Interp Factor V Activity POC ABG pH POC ABG pCO2 POC ABG pO2 ABG pO2 ABG HCO3 ABG Base Excess ABG Hemoglobin Oxyhemoglobin Sodium Potassium Chloride Carbon Dioxide BUN 58 H Creatinine 1.9 H Glucose 169 H POC Glucose 195 H Lactic Acid Calcium Ionized Calcium Phosphorus Magnesium Direct Bilirubin AST ALT Alkaline Phosphatase Lactate Dehydrogenase Troponin T C-Reactive Protein Total Protein Albumin Prealbumin Triglycerides Cholesterol LDL Cholesterol Direct HDL Cholesterol 25-OH Vitamin D Total PTH Intact Urine pH Urine WBC (Auto) Urine Creatinine Urine Total Protein Fluid Total Protein Vancomycin Trough Rheumatoid Factor Complement C4 Miscellaneous Test Crossmatch 10/14/16 10/14/16 10/14/16 11:44 17:13 23:28 WBC RBC Hgb Hct MCV MCH MCHC RDW Plt Count Lymph % (Auto) [place] % (Auto) Lymph # [place] # Baso # Seg Neutrophils % Seg Neuts % (Manual) Lymphocytes % (Manual) Monocytes % (Manual) Eosinophils % (Manual) Basophils % (Manual) Nucleated RBC % Seg Neutrophils # Seg Neutrophils # Man Lymphocytes # (Manual) Monocytes # (Manual) Eosinophils # (Manual) Basophils # (Manual) PT INR Fibrinogen dRVVT Confirm Interp Factor V Activity POC ABG pH POC ABG pCO2 POC ABG pO2 ABG pO2 ABG HCO3 ABG Base Excess ABG Hemoglobin Oxyhemoglobin Sodium Potassium Chloride Carbon Dioxide BUN Creatinine Glucose POC Glucose 174 H 121 H 151 H Lactic Acid Calcium Ionized Calcium Phosphorus Magnesium Direct Bilirubin AST ALT Alkaline Phosphatase Lactate Dehydrogenase Troponin T C-Reactive Protein Total Protein Albumin Prealbumin Triglycerides Cholesterol LDL Cholesterol Direct HDL Cholesterol 25-OH Vitamin D Total PTH Intact Urine pH Urine WBC (Auto) Urine Creatinine Urine Total Protein Fluid Total Protein Vancomycin Trough Rheumatoid Factor Complement C4 Miscellaneous Test Crossmatch 10/15/16 10/15/16 10/15/16 05:06 12:26 17:48 WBC RBC Hgb Hct MCV MCH MCHC RDW Plt Count Lymph % (Auto) [place] % (Auto) Lymph # [place] # Baso # Seg Neutrophils % Seg Neuts % (Manual) Lymphocytes % (Manual) Monocytes % (Manual) Eosinophils % (Manual) Basophils % (Manual) Nucleated RBC % Seg Neutrophils # Seg Neutrophils # Man Lymphocytes # (Manual) Monocytes # (Manual) Eosinophils # (Manual) Basophils # (Manual) PT INR Fibrinogen dRVVT Confirm Interp Factor V Activity POC ABG pH POC ABG pCO2 POC ABG pO2 ABG pO2 ABG HCO3 ABG Base Excess ABG Hemoglobin Oxyhemoglobin Sodium Potassium Chloride Carbon Dioxide BUN Creatinine Glucose POC Glucose 151 H 149 H 153 H Lactic Acid Calcium Ionized Calcium Phosphorus Magnesium Direct Bilirubin AST ALT Alkaline Phosphatase Lactate Dehydrogenase Troponin T C-Reactive Protein Total Protein Albumin Prealbumin Triglycerides Cholesterol LDL Cholesterol Direct HDL Cholesterol 25-OH Vitamin D Total PTH Intact Urine pH Urine WBC (Auto) Urine Creatinine Urine Total Protein Fluid Total Protein Vancomycin Trough Rheumatoid Factor Complement C4 Miscellaneous Test Crossmatch 10/15/16 10/15/16 10/16/16 Unknown Unknown 00:02 WBC 23.4 H RBC 2.78 L Hgb 8.5 L Hct 25.7 L MCV MCH MCHC RDW 18.7 H Plt Count Lymph % (Auto) [place] % (Auto) Lymph # [place] # Baso # Seg Neutrophils % Seg Neuts % (Manual) Lymphocytes % (Manual) Monocytes % (Manual) Eosinophils % (Manual) Basophils % (Manual) Nucleated RBC % Seg Neutrophils # Seg Neutrophils # Man Lymphocytes # (Manual) Monocytes # (Manual) Eosinophils # (Manual) Basophils # (Manual) PT INR Fibrinogen dRVVT Confirm Interp Factor V Activity POC ABG pH POC ABG pCO2 POC ABG pO2 ABG pO2 ABG HCO3 ABG Base Excess ABG Hemoglobin Oxyhemoglobin Sodium Potassium Chloride Carbon Dioxide BUN 73 H Creatinine 2.3 H Glucose 120 H POC Glucose 137 H Lactic Acid Calcium Ionized Calcium Phosphorus Magnesium Direct Bilirubin AST ALT Alkaline Phosphatase Lactate Dehydrogenase Troponin T C-Reactive Protein Total Protein Albumin Prealbumin Triglycerides Cholesterol LDL Cholesterol Direct HDL Cholesterol 25-OH Vitamin D Total PTH Intact Urine pH Urine WBC (Auto) Urine Creatinine Urine Total Protein Fluid Total Protein Vancomycin Trough Rheumatoid Factor Complement C4 Miscellaneous Test Crossmatch 10/16/16 10/16/16 10/16/16 05:44 06:25 06:25 WBC 22.5 H RBC 2.76 L Hgb 8.3 L Hct 25.2 L MCV MCH MCHC RDW 18.3 H Plt Count Lymph % (Auto) [place] % (Auto) Lymph # [place] # Baso # Seg Neutrophils % Seg Neuts % (Manual) Lymphocytes % (Manual) Monocytes % (Manual) Eosinophils % (Manual) Basophils % (Manual) Nucleated RBC % Seg Neutrophils # Seg Neutrophils # Man Lymphocytes # (Manual) Monocytes # (Manual) Eosinophils # (Manual) Basophils # (Manual) PT INR Fibrinogen dRVVT Confirm Interp Factor V Activity POC ABG pH POC ABG pCO2 POC ABG pO2 ABG pO2 ABG HCO3 ABG Base Excess ABG Hemoglobin Oxyhemoglobin Sodium Potassium Chloride Carbon Dioxide BUN 92 H Creatinine 3.0 H Glucose 138 H POC Glucose 110 H Lactic Acid Calcium Ionized Calcium Phosphorus Magnesium Direct Bilirubin AST ALT Alkaline Phosphatase Lactate Dehydrogenase Troponin T C-Reactive Protein Total Protein Albumin Prealbumin Triglycerides Cholesterol LDL Cholesterol Direct HDL Cholesterol 25-OH Vitamin D Total PTH Intact Urine pH Urine WBC (Auto) Urine Creatinine Urine Total Protein Fluid Total Protein Vancomycin Trough Rheumatoid Factor Complement C4 Miscellaneous Test Crossmatch 10/16/16 10/16/16 10/16/16 11:27 11:48 17:36 WBC RBC Hgb Hct MCV MCH MCHC RDW Plt Count Lymph % (Auto) [place] % (Auto) Lymph # [place] # Baso # Seg Neutrophils % Seg Neuts % (Manual) Lymphocytes % (Manual) Monocytes % (Manual) Eosinophils % (Manual) Basophils % (Manual) Nucleated RBC % Seg Neutrophils # Seg Neutrophils # Man Lymphocytes # (Manual) Monocytes # (Manual) Eosinophils # (Manual) Basophils # (Manual) PT INR Fibrinogen dRVVT Confirm Interp Factor V Activity POC ABG pH 7.582 H POC ABG pCO2 27.4 L POC ABG pO2 110 H ABG pO2 ABG HCO3 ABG Base Excess ABG Hemoglobin Oxyhemoglobin Sodium Potassium Chloride Carbon Dioxide BUN Creatinine Glucose POC Glucose 121 H 133 H Lactic Acid Calcium Ionized Calcium Phosphorus Magnesium Direct Bilirubin AST ALT Alkaline Phosphatase Lactate Dehydrogenase Troponin T C-Reactive Protein Total Protein Albumin Prealbumin Triglycerides Cholesterol LDL Cholesterol Direct HDL Cholesterol 25-OH Vitamin D Total PTH Intact Urine pH Urine WBC (Auto) Urine Creatinine Urine Total Protein Fluid Total Protein Vancomycin Trough Rheumatoid Factor Complement C4 Miscellaneous Test Crossmatch 10/16/16 10/17/16 10/17/16 20:48 04:24 04:24 WBC 21.4 H RBC 2.72 L Hgb 8.0 L Hct 25.2 L MCV MCH MCHC RDW 18.0 H Plt Count Lymph % (Auto) [place] % (Auto) Lymph # [place] # Baso # Seg Neutrophils % Seg Neuts % (Manual) Lymphocytes % (Manual) Monocytes % (Manual) Eosinophils % (Manual) Basophils % (Manual) Nucleated RBC % Seg Neutrophils # Seg Neutrophils # Man Lymphocytes # (Manual) Monocytes # (Manual) Eosinophils # (Manual) Basophils # (Manual) PT INR Fibrinogen dRVVT Confirm Interp Factor V Activity POC ABG pH 7.561 H POC ABG pCO2 24.4 L POC ABG pO2 77 L ABG pO2 ABG HCO3 ABG Base Excess ABG Hemoglobin Oxyhemoglobin Sodium 148 H Potassium Chloride Carbon Dioxide BUN 104 H Creatinine 3.0 H Glucose 149 H POC Glucose Lactic Acid Calcium Ionized Calcium Phosphorus Magnesium Direct Bilirubin AST ALT Alkaline Phosphatase 138 H Lactate Dehydrogenase Troponin T C-Reactive Protein Total Protein 6.2 L Albumin 1.5 L Prealbumin Triglycerides Cholesterol LDL Cholesterol Direct HDL Cholesterol 25-OH Vitamin D Total PTH Intact Urine pH Urine WBC (Auto) Urine Creatinine Urine Total Protein Fluid Total Protein Vancomycin Trough Rheumatoid Factor Complement C4 Miscellaneous Test Crossmatch 10/17/16 10/17/16 10/17/16 06:02 12:17 17:14 WBC RBC Hgb Hct MCV MCH MCHC RDW Plt Count Lymph % (Auto) [place] % (Auto) Lymph # [place] # Baso # Seg Neutrophils % Seg Neuts % (Manual) Lymphocytes % (Manual) Monocytes % (Manual) Eosinophils % (Manual) Basophils % (Manual) Nucleated RBC % Seg Neutrophils # Seg Neutrophils # Man Lymphocytes # (Manual) Monocytes # (Manual) Eosinophils # (Manual) Basophils # (Manual) PT INR Fibrinogen dRVVT Confirm Interp Factor V Activity POC ABG pH POC ABG pCO2 POC ABG pO2 ABG pO2 ABG HCO3 ABG Base Excess ABG Hemoglobin Oxyhemoglobin Sodium Potassium Chloride Carbon Dioxide BUN Creatinine Glucose POC Glucose 170 H 167 H 126 H Lactic Acid Calcium Ionized Calcium Phosphorus Magnesium Direct Bilirubin AST ALT Alkaline Phosphatase Lactate Dehydrogenase Troponin T C-Reactive Protein Total Protein Albumin Prealbumin Triglycerides Cholesterol LDL Cholesterol Direct HDL Cholesterol 25-OH Vitamin D Total PTH Intact Urine pH Urine WBC (Auto) Urine Creatinine Urine Total Protein Fluid Total Protein Vancomycin Trough Rheumatoid Factor Complement C4 Miscellaneous Test Crossmatch 10/17/16 10/18/16 10/18/16 23:17 04:00 04:00 WBC 20.7 H RBC 2.47 L Hgb 7.4 L Hct 22.9 L MCV MCH MCHC RDW 17.5 H Plt Count Lymph % (Auto) [place] % (Auto) Lymph # [place] # Baso # Seg Neutrophils % Seg Neuts % (Manual) Lymphocytes % (Manual) Monocytes % (Manual) Eosinophils % (Manual) Basophils % (Manual) Nucleated RBC % Seg Neutrophils # Seg Neutrophils # Man Lymphocytes # (Manual) Monocytes # (Manual) Eosinophils # (Manual) Basophils # (Manual) PT INR Fibrinogen dRVVT Confirm Interp Factor V Activity POC ABG pH POC ABG pCO2 POC ABG pO2 ABG pO2 ABG HCO3 ABG Base Excess ABG Hemoglobin Oxyhemoglobin Sodium 149 H Potassium Chloride 107.9 H Carbon Dioxide 20 L BUN 117 H Creatinine 3.2 H Glucose 119 H POC Glucose 121 H Lactic Acid Calcium Ionized Calcium Phosphorus Magnesium Direct Bilirubin AST ALT Alkaline Phosphatase Lactate Dehydrogenase Troponin T C-Reactive Protein Total Protein Albumin Prealbumin Triglycerides Cholesterol LDL Cholesterol Direct HDL Cholesterol 25-OH Vitamin D Total PTH Intact Urine pH Urine WBC (Auto) Urine Creatinine Urine Total Protein Fluid Total Protein Vancomycin Trough Rheumatoid Factor Complement C4 Miscellaneous Test Crossmatch 10/18/16 10/18/16 10/18/16 05:23 10:46 17:30 WBC RBC Hgb Hct MCV MCH MCHC RDW Plt Count Lymph % (Auto) [place] % (Auto) Lymph # [place] # Baso # Seg Neutrophils % Seg Neuts % (Manual) Lymphocytes % (Manual) Monocytes % (Manual) Eosinophils % (Manual) Basophils % (Manual) Nucleated RBC % Seg Neutrophils # Seg Neutrophils # Man Lymphocytes # (Manual) Monocytes # (Manual) Eosinophils # (Manual) Basophils # (Manual) PT INR Fibrinogen dRVVT Confirm Interp Factor V Activity POC ABG pH POC ABG pCO2 POC ABG pO2 ABG pO2 ABG HCO3 ABG Base Excess ABG Hemoglobin Oxyhemoglobin Sodium Potassium Chloride Carbon Dioxide BUN Creatinine Glucose POC Glucose 119 H 155 H 124 H Lactic Acid Calcium Ionized Calcium Phosphorus Magnesium Direct Bilirubin AST ALT Alkaline Phosphatase Lactate Dehydrogenase Troponin T C-Reactive Protein Total Protein Albumin Prealbumin Triglycerides Cholesterol LDL Cholesterol Direct HDL Cholesterol 25-OH Vitamin D Total PTH Intact Urine pH Urine WBC (Auto) Urine Creatinine Urine Total Protein Fluid Total Protein Vancomycin Trough Rheumatoid Factor Complement C4 Miscellaneous Test Crossmatch 10/19/16 10/19/16 10/19/16 04:00 04:00 05:25 WBC 17.4 H RBC 2.54 L Hgb 7.7 L Hct 23.6 L MCV MCH MCHC RDW 17.3 H Plt Count Lymph % (Auto) [place] % (Auto) Lymph # [place] # Baso # Seg Neutrophils % Seg Neuts % (Manual) Lymphocytes % (Manual) Monocytes % (Manual) Eosinophils % (Manual) Basophils % (Manual) Nucleated RBC % Seg Neutrophils # Seg Neutrophils # Man Lymphocytes # (Manual) Monocytes # (Manual) Eosinophils # (Manual) Basophils # (Manual) PT INR Fibrinogen dRVVT Confirm Interp Factor V Activity POC ABG pH POC ABG pCO2 POC ABG pO2 ABG pO2 ABG HCO3 ABG Base Excess ABG Hemoglobin Oxyhemoglobin Sodium Potassium Chloride Carbon Dioxide BUN 72 H Creatinine 2.1 H Glucose 116 H POC Glucose 119 H Lactic Acid Calcium Ionized Calcium Phosphorus Magnesium Direct Bilirubin AST ALT Alkaline Phosphatase Lactate Dehydrogenase Troponin T C-Reactive Protein Total Protein Albumin Prealbumin Triglycerides Cholesterol LDL Cholesterol Direct HDL Cholesterol 25-OH Vitamin D Total PTH Intact Urine pH Urine WBC (Auto) Urine Creatinine Urine Total Protein Fluid Total Protein Vancomycin Trough Rheumatoid Factor Complement C4 Miscellaneous Test Crossmatch 10/19/16 10/19/16 10/20/16 11:46 23:59 06:00 WBC RBC Hgb Hct MCV MCH MCHC RDW Plt Count Lymph % (Auto) [place] % (Auto) Lymph # [place] # Baso # Seg Neutrophils % Seg Neuts % (Manual) Lymphocytes % (Manual) Monocytes % (Manual) Eosinophils % (Manual) Basophils % (Manual) Nucleated RBC % Seg Neutrophils # Seg Neutrophils # Man Lymphocytes # (Manual) Monocytes # (Manual) Eosinophils # (Manual) Basophils # (Manual) PT INR Fibrinogen dRVVT Confirm Interp Factor V Activity POC ABG pH POC ABG pCO2 POC ABG pO2 ABG pO2 ABG HCO3 ABG Base Excess ABG Hemoglobin Oxyhemoglobin Sodium Potassium Chloride Carbon Dioxide 17 L BUN 94 H Creatinine 2.7 H Glucose POC Glucose 116 H 117 H Lactic Acid Calcium Ionized Calcium Phosphorus Magnesium Direct Bilirubin AST ALT Alkaline Phosphatase Lactate Dehydrogenase Troponin T C-Reactive Protein Total Protein Albumin Prealbumin Triglycerides Cholesterol LDL Cholesterol Direct HDL Cholesterol 25-OH Vitamin D Total PTH Intact Urine pH Urine WBC (Auto) Urine Creatinine Urine Total Protein Fluid Total Protein Vancomycin Trough Rheumatoid Factor Complement C4 Miscellaneous Test Crossmatch 10/20/16 10/20/16 10/20/16 06:00 11:49 16:00 WBC 19.7 H RBC 2.51 L Hgb 7.7 L Hct 23.5 L MCV MCH MCHC RDW 17.5 H Plt Count Lymph % (Auto) [place] % (Auto) Lymph # [place] # Baso # Seg Neutrophils % Seg Neuts % (Manual) Lymphocytes % (Manual) Monocytes % (Manual) Eosinophils % (Manual) Basophils % (Manual) Nucleated RBC % Seg Neutrophils # Seg Neutrophils # Man Lymphocytes # (Manual) Monocytes # (Manual) Eosinophils # (Manual) Basophils # (Manual) PT INR Fibrinogen dRVVT Confirm Interp Factor V Activity POC ABG pH POC ABG pCO2 POC ABG pO2 ABG pO2 ABG HCO3 ABG Base Excess ABG Hemoglobin Oxyhemoglobin Sodium Potassium Chloride Carbon Dioxide BUN Creatinine Glucose POC Glucose 117 H Lactic Acid Calcium Ionized Calcium Phosphorus Magnesium Direct Bilirubin AST ALT Alkaline Phosphatase Lactate Dehydrogenase Troponin T C-Reactive Protein Total Protein Albumin Prealbumin Triglycerides Cholesterol LDL Cholesterol Direct HDL Cholesterol 25-OH Vitamin D Total PTH Intact Urine pH Urine WBC (Auto) Urine Creatinine Urine Total Protein Fluid Total Protein Vancomycin Trough Rheumatoid Factor Complement C4 Miscellaneous Test Flexitest 1 H Crossmatch 10/20/16 10/20/16 10/21/16 18:36 23:39 04:00 WBC RBC Hgb Hct MCV MCH MCHC RDW Plt Count Lymph % (Auto) [place] % (Auto) Lymph # [place] # Baso # Seg Neutrophils % Seg Neuts % (Manual) Lymphocytes % (Manual) Monocytes % (Manual) Eosinophils % (Manual) Basophils % (Manual) Nucleated RBC % Seg Neutrophils # Seg Neutrophils # Man Lymphocytes # (Manual) Monocytes # (Manual) Eosinophils # (Manual) Basophils # (Manual) PT INR Fibrinogen dRVVT Confirm Interp Factor V Activity POC ABG pH POC ABG pCO2 POC ABG pO2 ABG pO2 ABG HCO3 ABG Base Excess ABG Hemoglobin Oxyhemoglobin Sodium Potassium 5.4 H D Chloride Carbon Dioxide 15 L BUN 110 H Creatinine 3.0 H Glucose POC Glucose 127 H 114 H Lactic Acid Calcium Ionized Calcium Phosphorus Magnesium Direct Bilirubin AST ALT Alkaline Phosphatase Lactate Dehydrogenase Troponin T C-Reactive Protein Total Protein Albumin Prealbumin Triglycerides Cholesterol LDL Cholesterol Direct HDL Cholesterol 25-OH Vitamin D Total PTH Intact Urine pH Urine WBC (Auto) Urine Creatinine Urine Total Protein Fluid Total Protein Vancomycin Trough Rheumatoid Factor Complement C4 Miscellaneous Test Crossmatch 10/21/16 10/21/16 10/22/16 05:54 23:46 05:18 WBC RBC Hgb Hct MCV MCH MCHC RDW Plt Count Lymph % (Auto) [place] % (Auto) Lymph # [place] # Baso # Seg Neutrophils % Seg Neuts % (Manual) Lymphocytes % (Manual) Monocytes % (Manual) Eosinophils % (Manual) Basophils % (Manual) Nucleated RBC % Seg Neutrophils # Seg Neutrophils # Man Lymphocytes # (Manual) Monocytes # (Manual) Eosinophils # (Manual) Basophils # (Manual) PT INR Fibrinogen dRVVT Confirm Interp Factor V Activity POC ABG pH POC ABG pCO2 POC ABG pO2 ABG pO2 ABG HCO3 ABG Base Excess ABG Hemoglobin Oxyhemoglobin Sodium Potassium Chloride Carbon Dioxide BUN Creatinine Glucose POC Glucose 119 H 108 H 109 H Lactic Acid Calcium Ionized Calcium Phosphorus Magnesium Direct Bilirubin AST ALT Alkaline Phosphatase Lactate Dehydrogenase Troponin T C-Reactive Protein Total Protein Albumin Prealbumin Triglycerides Cholesterol LDL Cholesterol Direct HDL Cholesterol 25-OH Vitamin D Total PTH Intact Urine pH Urine WBC (Auto) Urine Creatinine Urine Total Protein Fluid Total Protein Vancomycin Trough Rheumatoid Factor Complement C4 Miscellaneous Test Crossmatch 10/22/16 10/22/16 10/22/16 06:40 06:40 06:40 WBC 14.0 H RBC 2.03 L Hgb 7.0 L Hct 20.5 L MCV 98 H MCH 34 H MCHC 35 H RDW 17.8 H Plt Count Lymph % (Auto) [place] % (Auto) 9.9 H Lymph # [place] # 1.4 H Baso # 0.2 H Seg Neutrophils % 72.0 H Seg Neuts % (Manual) Lymphocytes % (Manual) Monocytes % (Manual) Eosinophils % (Manual) Basophils % (Manual) Nucleated RBC % Seg Neutrophils # 10.0 H Seg Neutrophils # Man Lymphocytes # (Manual) Monocytes # (Manual) Eosinophils # (Manual) Basophils # (Manual) PT INR Fibrinogen dRVVT Confirm Interp Factor V Activity POC ABG pH POC ABG pCO2 POC ABG pO2 ABG pO2 ABG HCO3 ABG Base Excess ABG Hemoglobin Oxyhemoglobin Sodium 130 L D Potassium Chloride 92.4 L Carbon Dioxide 20 L BUN 50 H Creatinine 1.6 H Glucose 589 H* POC Glucose Lactic Acid Calcium 7.8 L D Ionized Calcium Phosphorus Magnesium 1.60 L Direct Bilirubin AST ALT Alkaline Phosphatase Lactate Dehydrogenase Troponin T C-Reactive Protein Total Protein Albumin Prealbumin Triglycerides Cholesterol LDL Cholesterol Direct HDL Cholesterol 25-OH Vitamin D Total PTH Intact Urine pH Urine WBC (Auto) Urine Creatinine Urine Total Protein Fluid Total Protein Vancomycin Trough Rheumatoid Factor Complement C4 Miscellaneous Test Crossmatch 10/22/16 10/22/16 10/22/16 11:39 16:44 23:36 WBC RBC Hgb Hct MCV MCH MCHC RDW Plt Count Lymph % (Auto) [place] % (Auto) Lymph # [place] # Baso # Seg Neutrophils % Seg Neuts % (Manual) Lymphocytes % (Manual) Monocytes % (Manual) Eosinophils % (Manual) Basophils % (Manual) Nucleated RBC % Seg Neutrophils # Seg Neutrophils # Man Lymphocytes # (Manual) Monocytes # (Manual) Eosinophils # (Manual) Basophils # (Manual) PT INR Fibrinogen dRVVT Confirm Interp Factor V Activity POC ABG pH POC ABG pCO2 POC ABG pO2 ABG pO2 ABG HCO3 ABG Base Excess ABG Hemoglobin Oxyhemoglobin Sodium Potassium Chloride Carbon Dioxide BUN Creatinine Glucose POC Glucose 142 H 163 H 123 H Lactic Acid Calcium Ionized Calcium Phosphorus Magnesium Direct Bilirubin AST ALT Alkaline Phosphatase Lactate Dehydrogenase Troponin T C-Reactive Protein Total Protein Albumin Prealbumin Triglycerides Cholesterol LDL Cholesterol Direct HDL Cholesterol 25-OH Vitamin D Total PTH Intact Urine pH Urine WBC (Auto) Urine Creatinine Urine Total Protein Fluid Total Protein Vancomycin Trough Rheumatoid Factor Complement C4 Miscellaneous Test Crossmatch 10/23/16 10/23/16 10/23/16 04:58 06:00 12:12 WBC RBC Hgb Hct MCV MCH MCHC RDW Plt Count Lymph % (Auto) [place] % (Auto) Lymph # [place] # Baso # Seg Neutrophils % Seg Neuts % (Manual) Lymphocytes % (Manual) Monocytes % (Manual) Eosinophils % (Manual) Basophils % (Manual) Nucleated RBC % Seg Neutrophils # Seg Neutrophils # Man Lymphocytes # (Manual) Monocytes # (Manual) Eosinophils # (Manual) Basophils # (Manual) PT INR Fibrinogen dRVVT Confirm Interp Factor V Activity POC ABG pH POC ABG pCO2 POC ABG pO2 ABG pO2 ABG HCO3 ABG Base Excess ABG Hemoglobin Oxyhemoglobin Sodium 133 L Potassium 3.5 L Chloride 96.1 L Carbon Dioxide 18 L BUN 76 H Creatinine 2.1 H Glucose POC Glucose 133 H 138 H Lactic Acid Calcium 8.3 L Ionized Calcium Phosphorus Magnesium Direct Bilirubin AST ALT Alkaline Phosphatase Lactate Dehydrogenase Troponin T C-Reactive Protein Total Protein Albumin Prealbumin Triglycerides Cholesterol LDL Cholesterol Direct HDL Cholesterol 25-OH Vitamin D Total PTH Intact Urine pH Urine WBC (Auto) Urine Creatinine Urine Total Protein Fluid Total Protein Vancomycin Trough Rheumatoid Factor Complement C4 Miscellaneous Test Crossmatch 10/23/16 10/23/16 10/24/16 16:53 23:37 04:00 WBC RBC Hgb Hct MCV MCH MCHC RDW Plt Count Lymph % (Auto) [place] % (Auto) Lymph # [place] # Baso # Seg Neutrophils % Seg Neuts % (Manual) Lymphocytes % (Manual) Monocytes % (Manual) Eosinophils % (Manual) Basophils % (Manual) Nucleated RBC % Seg Neutrophils # Seg Neutrophils # Man Lymphocytes # (Manual) Monocytes # (Manual) Eosinophils # (Manual) Basophils # (Manual) PT INR Fibrinogen dRVVT Confirm Interp Factor V Activity POC ABG pH POC ABG pCO2 POC ABG pO2 ABG pO2 ABG HCO3 ABG Base Excess ABG Hemoglobin Oxyhemoglobin Sodium 131 L Potassium Chloride 94.5 L Carbon Dioxide 19 L BUN 97 H Creatinine 2.6 H Glucose 110 H POC Glucose 125 H 123 H Lactic Acid Calcium 8.3 L Ionized Calcium Phosphorus Magnesium Direct Bilirubin AST ALT Alkaline Phosphatase Lactate Dehydrogenase Troponin T C-Reactive Protein Total Protein Albumin Prealbumin Triglycerides Cholesterol LDL Cholesterol Direct HDL Cholesterol 25-OH Vitamin D Total PTH Intact Urine pH Urine WBC (Auto) Urine Creatinine Urine Total Protein Fluid Total Protein Vancomycin Trough Rheumatoid Factor Complement C4 Miscellaneous Test Crossmatch 10/24/16 10/24/16 10/24/16 07:49 11:39 17:52 WBC RBC Hgb 6.0 L Hct 19.7 L* MCV MCH MCHC RDW Plt Count Lymph % (Auto) [place] % (Auto) Lymph # [place] # Baso # Seg Neutrophils % Seg Neuts % (Manual) Lymphocytes % (Manual) Monocytes % (Manual) Eosinophils % (Manual) Basophils % (Manual) Nucleated RBC % Seg Neutrophils # Seg Neutrophils # Man Lymphocytes # (Manual) Monocytes # (Manual) Eosinophils # (Manual) Basophils # (Manual) PT INR Fibrinogen dRVVT Confirm Interp Factor V Activity POC ABG pH POC ABG pCO2 POC ABG pO2 ABG pO2 ABG HCO3 ABG Base Excess ABG Hemoglobin Oxyhemoglobin Sodium Potassium Chloride Carbon Dioxide BUN Creatinine Glucose POC Glucose 106 H 158 H Lactic Acid Calcium Ionized Calcium Phosphorus Magnesium Direct Bilirubin AST ALT Alkaline Phosphatase Lactate Dehydrogenase Troponin T C-Reactive Protein Total Protein Albumin Prealbumin Triglycerides Cholesterol LDL Cholesterol Direct HDL Cholesterol 25-OH Vitamin D Total PTH Intact Urine pH Urine WBC (Auto) Urine Creatinine Urine Total Protein Fluid Total Protein Vancomycin Trough Rheumatoid Factor Complement C4 Miscellaneous Test Crossmatch 10/24/16 10/24/16 10/24/16 20:00 22:27 Unknown WBC RBC Hgb 9.4 L D Hct 27.5 L D MCV MCH MCHC RDW Plt Count Lymph % (Auto) [place] % (Auto) Lymph # [place] # Baso # Seg Neutrophils % Seg Neuts % (Manual) Lymphocytes % (Manual) Monocytes % (Manual) Eosinophils % (Manual) Basophils % (Manual) Nucleated RBC % Seg Neutrophils # Seg Neutrophils # Man Lymphocytes # (Manual) Monocytes # (Manual) Eosinophils # (Manual) Basophils # (Manual) PT INR Fibrinogen dRVVT Confirm Interp Factor V Activity POC ABG pH POC ABG pCO2 POC ABG pO2 ABG pO2 ABG HCO3 ABG Base Excess ABG Hemoglobin Oxyhemoglobin Sodium Potassium Chloride Carbon Dioxide BUN Creatinine Glucose POC Glucose 125 H Lactic Acid Calcium Ionized Calcium Phosphorus Magnesium Direct Bilirubin AST ALT Alkaline Phosphatase Lactate Dehydrogenase Troponin T C-Reactive Protein Total Protein Albumin Prealbumin Triglycerides Cholesterol LDL Cholesterol Direct HDL Cholesterol 25-OH Vitamin D Total PTH Intact Urine pH Urine WBC (Auto) Urine Creatinine Urine Total Protein Fluid Total Protein Vancomycin Trough Rheumatoid Factor Complement C4 Miscellaneous Test Crossmatch See Detail 10/25/16 10/25/16 10/25/16 04:00 04:00 04:00 WBC 14.2 H RBC 2.98 L Hgb 9.0 L Hct 26.2 L MCV MCH MCHC RDW 16.6 H Plt Count Lymph % (Auto) [place] % (Auto) 10.7 H Lymph # [place] # 1.5 H Baso # Seg Neutrophils % 73.6 H Seg Neuts % (Manual) Lymphocytes % (Manual) Monocytes % (Manual) Eosinophils % (Manual) Basophils % (Manual) Nucleated RBC % Seg Neutrophils # 10.5 H Seg Neutrophils # Man Lymphocytes # (Manual) Monocytes # (Manual) Eosinophils # (Manual) Basophils # (Manual) PT INR Fibrinogen dRVVT Confirm Interp Factor V Activity POC ABG pH POC ABG pCO2 POC ABG pO2 ABG pO2 ABG HCO3 ABG Base Excess ABG Hemoglobin Oxyhemoglobin Sodium 132 L Potassium Chloride 94.7 L Carbon Dioxide BUN 51 H Creatinine 1.6 H Glucose 130 H POC Glucose Lactic Acid Calcium 8.3 L Ionized Calcium Phosphorus 1.60 L D Magnesium Direct Bilirubin AST ALT Alkaline Phosphatase Lactate Dehydrogenase Troponin T C-Reactive Protein Total Protein Albumin Prealbumin Triglycerides Cholesterol LDL Cholesterol Direct HDL Cholesterol 25-OH Vitamin D Total PTH Intact Urine pH Urine WBC (Auto) Urine Creatinine Urine Total Protein Fluid Total Protein Vancomycin Trough Rheumatoid Factor Complement C4 Miscellaneous Test Crossmatch 10/25/16 10/25/16 10/25/16 04:32 11:48 17:22 WBC RBC Hgb Hct MCV MCH MCHC RDW Plt Count Lymph % (Auto) [place] % (Auto) Lymph # [place] # Baso # Seg Neutrophils % Seg Neuts % (Manual) Lymphocytes % (Manual) Monocytes % (Manual) Eosinophils % (Manual) Basophils % (Manual) Nucleated RBC % Seg Neutrophils # Seg Neutrophils # Man Lymphocytes # (Manual) Monocytes # (Manual) Eosinophils # (Manual) Basophils # (Manual) PT INR Fibrinogen dRVVT Confirm Interp Factor V Activity POC ABG pH POC ABG pCO2 POC ABG pO2 ABG pO2 ABG HCO3 ABG Base Excess ABG Hemoglobin Oxyhemoglobin Sodium Potassium Chloride Carbon Dioxide BUN Creatinine Glucose POC Glucose 124 H 171 H 120 H Lactic Acid Calcium Ionized Calcium Phosphorus Magnesium Direct Bilirubin AST ALT Alkaline Phosphatase Lactate Dehydrogenase Troponin T C-Reactive Protein Total Protein Albumin Prealbumin Triglycerides Cholesterol LDL Cholesterol Direct HDL Cholesterol 25-OH Vitamin D Total PTH Intact Urine pH Urine WBC (Auto) Urine Creatinine Urine Total Protein Fluid Total Protein Vancomycin Trough Rheumatoid Factor Complement C4 Miscellaneous Test Crossmatch 10/26/16 10/26/16 10/26/16 04:54 07:06 07:06 WBC 16.9 H RBC 3.06 L Hgb 9.1 L Hct 26.9 L MCV MCH MCHC RDW 16.9 H Plt Count Lymph % (Auto) [place] % (Auto) Lymph # [place] # Baso # Seg Neutrophils % Seg Neuts % (Manual) 71.0 H Lymphocytes % (Manual) 5.0 L Monocytes % (Manual) 12.0 H Eosinophils % (Manual) Basophils % (Manual) Nucleated RBC % Seg Neutrophils # Seg Neutrophils # Man 12.0 H Lymphocytes # (Manual) 0.8 L Monocytes # (Manual) 2.0 H Eosinophils # (Manual) Basophils # (Manual) PT INR Fibrinogen dRVVT Confirm Interp Factor V Activity POC ABG pH POC ABG pCO2 POC ABG pO2 ABG pO2 ABG HCO3 ABG Base Excess ABG Hemoglobin Oxyhemoglobin Sodium 135 L Potassium Chloride 97.1 L Carbon Dioxide BUN 73 H Creatinine 2.2 H Glucose 117 H POC Glucose 123 H Lactic Acid Calcium Ionized Calcium Phosphorus 1.70 L Magnesium Direct Bilirubin AST ALT Alkaline Phosphatase Lactate Dehydrogenase Troponin T C-Reactive Protein Total Protein Albumin Prealbumin Triglycerides Cholesterol LDL Cholesterol Direct HDL Cholesterol 25-OH Vitamin D Total PTH Intact Urine pH Urine WBC (Auto) Urine Creatinine Urine Total Protein Fluid Total Protein Vancomycin Trough Rheumatoid Factor Complement C4 Miscellaneous Test Crossmatch 10/26/16 10/26/16 10/26/16 12:12 17:29 23:42 WBC RBC Hgb Hct MCV MCH MCHC RDW Plt Count Lymph % (Auto) [place] % (Auto) Lymph # [place] # Baso # Seg Neutrophils % Seg Neuts % (Manual) Lymphocytes % (Manual) Monocytes % (Manual) Eosinophils % (Manual) Basophils % (Manual) Nucleated RBC % Seg Neutrophils # Seg Neutrophils # Man Lymphocytes # (Manual) Monocytes # (Manual) Eosinophils # (Manual) Basophils # (Manual) PT INR Fibrinogen dRVVT Confirm Interp Factor V Activity POC ABG pH POC ABG pCO2 POC ABG pO2 ABG pO2 ABG HCO3 ABG Base Excess ABG Hemoglobin Oxyhemoglobin Sodium Potassium Chloride Carbon Dioxide BUN Creatinine Glucose POC Glucose 126 H 161 H 118 H Lactic Acid Calcium Ionized Calcium Phosphorus Magnesium Direct Bilirubin AST ALT Alkaline Phosphatase Lactate Dehydrogenase Troponin T C-Reactive Protein Total Protein Albumin Prealbumin Triglycerides Cholesterol LDL Cholesterol Direct HDL Cholesterol 25-OH Vitamin D Total PTH Intact Urine pH Urine WBC (Auto) Urine Creatinine Urine Total Protein Fluid Total Protein Vancomycin Trough Rheumatoid Factor Complement C4 Miscellaneous Test Crossmatch 10/27/16 10/27/16 10/27/16 05:03 06:30 06:30 WBC 13.9 H RBC 3.09 L Hgb 9.2 L Hct 27.5 L MCV MCH MCHC RDW 17.0 H Plt Count Lymph % (Auto) [place] % (Auto) Lymph # [place] # Baso # Seg Neutrophils % Seg Neuts % (Manual) 78.0 H Lymphocytes % (Manual) Monocytes % (Manual) Eosinophils % (Manual) Basophils % (Manual) Nucleated RBC % 2.0 H Seg Neutrophils # Seg Neutrophils # Man 10.8 H Lymphocytes # (Manual) Monocytes # (Manual) 1.0 H Eosinophils # (Manual) Basophils # (Manual) PT INR Fibrinogen dRVVT Confirm Interp Factor V Activity POC ABG pH POC ABG pCO2 POC ABG pO2 ABG pO2 ABG HCO3 ABG Base Excess ABG Hemoglobin Oxyhemoglobin Sodium Potassium Chloride Carbon Dioxide BUN 40 H Creatinine 1.5 H Glucose 135 H POC Glucose 107 H Lactic Acid Calcium 8.3 L Ionized Calcium Phosphorus 1.30 L D Magnesium Direct Bilirubin AST ALT Alkaline Phosphatase Lactate Dehydrogenase Troponin T C-Reactive Protein Total Protein Albumin Prealbumin Triglycerides Cholesterol LDL Cholesterol Direct HDL Cholesterol 25-OH Vitamin D Total PTH Intact Urine pH Urine WBC (Auto) Urine Creatinine Urine Total Protein Fluid Total Protein Vancomycin Trough Rheumatoid Factor Complement C4 Miscellaneous Test Crossmatch 10/27/16 10/27/16 10/27/16 13:27 18:07 23:40 WBC RBC Hgb Hct MCV MCH MCHC RDW Plt Count Lymph % (Auto) [place] % (Auto) Lymph # [place] # Baso # Seg Neutrophils % Seg Neuts % (Manual) Lymphocytes % (Manual) Monocytes % (Manual) Eosinophils % (Manual) Basophils % (Manual) Nucleated RBC % Seg Neutrophils # Seg Neutrophils # Man Lymphocytes # (Manual) Monocytes # (Manual) Eosinophils # (Manual) Basophils # (Manual) PT INR Fibrinogen dRVVT Confirm Interp Factor V Activity POC ABG pH POC ABG pCO2 POC ABG pO2 ABG pO2 ABG HCO3 ABG Base Excess ABG Hemoglobin Oxyhemoglobin Sodium Potassium Chloride Carbon Dioxide BUN Creatinine Glucose POC Glucose 117 H 121 H 118 H Lactic Acid Calcium Ionized Calcium Phosphorus Magnesium Direct Bilirubin AST ALT Alkaline Phosphatase Lactate Dehydrogenase Troponin T C-Reactive Protein Total Protein Albumin Prealbumin Triglycerides Cholesterol LDL Cholesterol Direct HDL Cholesterol 25-OH Vitamin D Total PTH Intact Urine pH Urine WBC (Auto) Urine Creatinine Urine Total Protein Fluid Total Protein Vancomycin Trough Rheumatoid Factor Complement C4 Miscellaneous Test Crossmatch 10/28/16 10/28/16 10/28/16 05:48 06:45 06:45 WBC 14.7 H RBC 3.05 L Hgb 9.0 L Hct 26.9 L MCV MCH MCHC RDW 16.8 H Plt Count Lymph % (Auto) 8.2 L [place] % (Auto) 8.4 H Lymph # [place] # 1.2 H Baso # Seg Neutrophils % 81.9 H Seg Neuts % (Manual) Lymphocytes % (Manual) Monocytes % (Manual) Eosinophils % (Manual) Basophils % (Manual) Nucleated RBC % Seg Neutrophils # 12.1 H Seg Neutrophils # Man Lymphocytes # (Manual) Monocytes # (Manual) Eosinophils # (Manual) Basophils # (Manual) PT INR Fibrinogen dRVVT Confirm Interp Factor V Activity POC ABG pH POC ABG pCO2 POC ABG pO2 ABG pO2 ABG HCO3 ABG Base Excess ABG Hemoglobin Oxyhemoglobin Sodium Potassium Chloride Carbon Dioxide BUN 60 H Creatinine 1.9 H Glucose 120 H POC Glucose 114 H Lactic Acid Calcium Ionized Calcium Phosphorus Magnesium Direct Bilirubin AST ALT Alkaline Phosphatase Lactate Dehydrogenase Troponin T C-Reactive Protein Total Protein Albumin Prealbumin Triglycerides Cholesterol LDL Cholesterol Direct HDL Cholesterol 25-OH Vitamin D Total PTH Intact Urine pH Urine WBC (Auto) Urine Creatinine Urine Total Protein Fluid Total Protein Vancomycin Trough Rheumatoid Factor Complement C4 Miscellaneous Test Crossmatch 10/28/16 10/28/16 10/29/16 17:08 23:50 05:10 WBC RBC Hgb Hct MCV MCH MCHC RDW Plt Count Lymph % (Auto) [place] % (Auto) Lymph # [place] # Baso # Seg Neutrophils % Seg Neuts % (Manual) Lymphocytes % (Manual) Monocytes % (Manual) Eosinophils % (Manual) Basophils % (Manual) Nucleated RBC % Seg Neutrophils # Seg Neutrophils # Man Lymphocytes # (Manual) Monocytes # (Manual) Eosinophils # (Manual) Basophils # (Manual) PT INR Fibrinogen dRVVT Confirm Interp Factor V Activity POC ABG pH POC ABG pCO2 POC ABG pO2 ABG pO2 ABG HCO3 ABG Base Excess ABG Hemoglobin Oxyhemoglobin Sodium Potassium Chloride Carbon Dioxide BUN Creatinine Glucose POC Glucose 109 H 110 H 124 H Lactic Acid Calcium Ionized Calcium Phosphorus Magnesium Direct Bilirubin AST ALT Alkaline Phosphatase Lactate Dehydrogenase Troponin T C-Reactive Protein Total Protein Albumin Prealbumin Triglycerides Cholesterol LDL Cholesterol Direct HDL Cholesterol 25-OH Vitamin D Total PTH Intact Urine pH Urine WBC (Auto) Urine Creatinine Urine Total Protein Fluid Total Protein Vancomycin Trough Rheumatoid Factor Complement C4 Miscellaneous Test Crossmatch 10/29/16 10/29/16 10/29/16 07:45 07:45 12:19 WBC 14.7 H RBC 3.15 L Hgb 9.3 L Hct 28.9 L MCV MCH MCHC RDW 17.0 H Plt Count Lymph % (Auto) 11.9 L [place] % (Auto) 8.6 H Lymph # [place] # 1.3 H Baso # Seg Neutrophils % 78.1 H Seg Neuts % (Manual) Lymphocytes % (Manual) Monocytes % (Manual) Eosinophils % (Manual) Basophils % (Manual) Nucleated RBC % Seg Neutrophils # 11.4 H Seg Neutrophils # Man Lymphocytes # (Manual) Monocytes # (Manual) Eosinophils # (Manual) Basophils # (Manual) PT INR Fibrinogen dRVVT Confirm Interp Factor V Activity POC ABG pH POC ABG pCO2 POC ABG pO2 ABG pO2 ABG HCO3 ABG Base Excess ABG Hemoglobin Oxyhemoglobin Sodium Potassium 5.1 H Chloride Carbon Dioxide 19 L BUN 78 H Creatinine 2.2 H Glucose 116 H POC Glucose 118 H Lactic Acid Calcium Ionized Calcium Phosphorus Magnesium Direct Bilirubin AST ALT Alkaline Phosphatase Lactate Dehydrogenase Troponin T C-Reactive Protein Total Protein Albumin Prealbumin Triglycerides Cholesterol LDL Cholesterol Direct HDL Cholesterol 25-OH Vitamin D Total PTH Intact Urine pH Urine WBC (Auto) Urine Creatinine Urine Total Protein Fluid Total Protein Vancomycin Trough Rheumatoid Factor Complement C4 Miscellaneous Test Crossmatch 10/29/16 10/30/16 10/30/16 17:49 01:52 03:28 WBC RBC Hgb Hct MCV MCH MCHC RDW Plt Count Lymph % (Auto) [place] % (Auto) Lymph # [place] # Baso # Seg Neutrophils % Seg Neuts % (Manual) Lymphocytes % (Manual) Monocytes % (Manual) Eosinophils % (Manual) Basophils % (Manual) Nucleated RBC % Seg Neutrophils # Seg Neutrophils # Man Lymphocytes # (Manual) Monocytes # (Manual) Eosinophils # (Manual) Basophils # (Manual) PT INR Fibrinogen dRVVT Confirm Interp Factor V Activity POC ABG pH POC ABG pCO2 POC ABG pO2 ABG pO2 ABG HCO3 ABG Base Excess ABG Hemoglobin Oxyhemoglobin Sodium Potassium 5.4 H Chloride 97.5 L Carbon Dioxide 19 L BUN 90 H Creatinine 2.5 H Glucose POC Glucose 120 H 129 H Lactic Acid Calcium Ionized Calcium Phosphorus 5.20 H Magnesium Direct Bilirubin AST ALT Alkaline Phosphatase Lactate Dehydrogenase Troponin T C-Reactive Protein Total Protein Albumin Prealbumin Triglycerides Cholesterol LDL Cholesterol Direct HDL Cholesterol 25-OH Vitamin D Total PTH Intact Urine pH Urine WBC (Auto) Urine Creatinine Urine Total Protein Fluid Total Protein Vancomycin Trough Rheumatoid Factor Complement C4 Miscellaneous Test Crossmatch 10/30/16 10/30/1617 03:28 08:19 08:19 WBC 11.6 H 15.9 H RBC 2.75 L 2.82 L Hgb 7.9 L 8.3 L Hct 24.2 L 25.2 L MCV MCH MCHC RDW 16.7 H 17.2 H Plt Count Lymph % (Auto) [place] % (Auto) 9.8 H Lymph # [place] # 1.1 H Baso # Seg Neutrophils % 74.2 H Seg Neuts % (Manual) Lymphocytes % (Manual) Monocytes % (Manual) Eosinophils % (Manual) Basophils % (Manual) Nucleated RBC % Seg Neutrophils # 8.6 H Seg Neutrophils # Man Lymphocytes # (Manual) Monocytes # (Manual) Eosinophils # (Manual) Basophils # (Manual) PT INR Fibrinogen dRVVT Confirm Interp Factor V Activity POC ABG pH POC ABG pCO2 POC ABG pO2 ABG pO2 ABG HCO3 ABG Base Excess ABG Hemoglobin Oxyhemoglobin Sodium Potassium 5.3 H Chloride 97.4 L Carbon Dioxide 19 L BUN 93 H Creatinine 2.6 H Glucose POC Glucose Lactic Acid Calcium Ionized Calcium Phosphorus Magnesium Direct Bilirubin AST ALT Alkaline Phosphatase Lactate Dehydrogenase Troponin T C-Reactive Protein Total Protein Albumin Prealbumin Triglycerides Cholesterol LDL Cholesterol Direct HDL Cholesterol 25-OH Vitamin D Total PTH Intact Urine pH Urine WBC (Auto) Urine Creatinine Urine Total Protein Fluid Total Protein Vancomycin Trough Rheumatoid Factor Complement C4 Miscellaneous Test Crossmatch 10/30/16 10/30/16 10/31/16 17:11 23:56 00:40 WBC RBC Hgb Hct MCV MCH MCHC RDW Plt Count Lymph % (Auto) [place] % (Auto) Lymph # [place] # Baso # Seg Neutrophils % Seg Neuts % (Manual) Lymphocytes % (Manual) Monocytes % (Manual) Eosinophils % (Manual) Basophils % (Manual) Nucleated RBC % Seg Neutrophils # Seg Neutrophils # Man Lymphocytes # (Manual) Monocytes # (Manual) Eosinophils # (Manual) Basophils # (Manual) PT INR Fibrinogen dRVVT Confirm Interp Factor V Activity POC ABG pH POC ABG pCO2 POC ABG pO2 ABG pO2 ABG HCO3 ABG Base Excess ABG Hemoglobin Oxyhemoglobin Sodium Potassium Chloride Carbon Dioxide BUN Creatinine Glucose POC Glucose 106 H 117 H 120 H Lactic Acid Calcium Ionized Calcium Phosphorus Magnesium Direct Bilirubin AST ALT Alkaline Phosphatase Lactate Dehydrogenase Troponin T C-Reactive Protein Total Protein Albumin Prealbumin Triglycerides Cholesterol LDL Cholesterol Direct HDL Cholesterol 25-OH Vitamin D Total PTH Intact Urine pH Urine WBC (Auto) Urine Creatinine Urine Total Protein Fluid Total Protein Vancomycin Trough Rheumatoid Factor Complement C4 Miscellaneous Test Crossmatch 10/31/16 10/31/16 10/31/16 05:43 07:15 07:15 WBC 12.1 H RBC 2.63 L Hgb 7.7 L Hct 23.3 L MCV MCH MCHC RDW 16.7 H Plt Count Lymph % (Auto) 11.7 L [place] % (Auto) 7.7 H Lymph # [place] # 0.9 H Baso # Seg Neutrophils % 78.0 H Seg Neuts % (Manual) Lymphocytes % (Manual) Monocytes % (Manual) Eosinophils % (Manual) Basophils % (Manual) Nucleated RBC % Seg Neutrophils # 9.4 H Seg Neutrophils # Man Lymphocytes # (Manual) Monocytes # (Manual) Eosinophils # (Manual) Basophils # (Manual) PT INR Fibrinogen dRVVT Confirm Interp Factor V Activity POC ABG pH POC ABG pCO2 POC ABG pO2 ABG pO2 ABG HCO3 ABG Base Excess ABG Hemoglobin Oxyhemoglobin Sodium Potassium Chloride 96.4 L Carbon Dioxide 21 L BUN 99 H Creatinine 2.6 H Glucose 144 H POC Glucose 125 H Lactic Acid Calcium Ionized Calcium Phosphorus 4.80 H Magnesium Direct Bilirubin AST ALT Alkaline Phosphatase Lactate Dehydrogenase Troponin T C-Reactive Protein Total Protein Albumin Prealbumin Triglycerides Cholesterol LDL Cholesterol Direct HDL Cholesterol 25-OH Vitamin D Total PTH Intact Urine pH Urine WBC (Auto) Urine Creatinine Urine Total Protein Fluid Total Protein Vancomycin Trough Rheumatoid Factor Complement C4 Miscellaneous Test Crossmatch 10/31/16 10/31/16 11/01/16 11:46 18:34 00:20 WBC RBC Hgb Hct MCV MCH MCHC RDW Plt Count Lymph % (Auto) [place] % (Auto) Lymph # [place] # Baso # Seg Neutrophils % Seg Neuts % (Manual) Lymphocytes % (Manual) Monocytes % (Manual) Eosinophils % (Manual) Basophils % (Manual) Nucleated RBC % Seg Neutrophils # Seg Neutrophils # Man Lymphocytes # (Manual) Monocytes # (Manual) Eosinophils # (Manual) Basophils # (Manual) PT INR Fibrinogen dRVVT Confirm Interp Factor V Activity POC ABG pH POC ABG pCO2 POC ABG pO2 ABG pO2 ABG HCO3 ABG Base Excess ABG Hemoglobin Oxyhemoglobin Sodium Potassium Chloride Carbon Dioxide BUN Creatinine Glucose POC Glucose 159 H 140 H 132 H Lactic Acid Calcium Ionized Calcium Phosphorus Magnesium Direct Bilirubin AST ALT Alkaline Phosphatase Lactate Dehydrogenase Troponin T C-Reactive Protein Total Protein Albumin Prealbumin Triglycerides Cholesterol LDL Cholesterol Direct HDL Cholesterol 25-OH Vitamin D Total PTH Intact Urine pH Urine WBC (Auto) Urine Creatinine Urine Total Protein Fluid Total Protein Vancomycin Trough Rheumatoid Factor Complement C4 Miscellaneous Test Crossmatch 11/01/16 11/01/16 11/01/16 04:55 04:55 06:11 WBC 11.2 H RBC 2.68 L Hgb 7.5 L Hct 23.7 L MCV MCH MCHC RDW 16.1 H Plt Count Lymph % (Auto) [place] % (Auto) 9.8 H Lymph # [place] # 1.1 H Baso # Seg Neutrophils % 70.8 H Seg Neuts % (Manual) Lymphocytes % (Manual) Monocytes % (Manual) Eosinophils % (Manual) Basophils % (Manual) Nucleated RBC % Seg Neutrophils # 7.9 H Seg Neutrophils # Man Lymphocytes # (Manual) Monocytes # (Manual) Eosinophils # (Manual) Basophils # (Manual) PT INR Fibrinogen dRVVT Confirm Interp Factor V Activity POC ABG pH POC ABG pCO2 POC ABG pO2 ABG pO2 ABG HCO3 ABG Base Excess ABG Hemoglobin Oxyhemoglobin Sodium Potassium 3.3 L D Chloride Carbon Dioxide BUN 61 H Creatinine 1.9 H Glucose 114 H POC Glucose 115 H Lactic Acid Calcium Ionized Calcium Phosphorus 1.80 L D Magnesium Direct Bilirubin AST ALT Alkaline Phosphatase Lactate Dehydrogenase Troponin T C-Reactive Protein Total Protein Albumin Prealbumin Triglycerides Cholesterol LDL Cholesterol Direct HDL Cholesterol 25-OH Vitamin D Total PTH Intact Urine pH Urine WBC (Auto) Urine Creatinine Urine Total Protein Fluid Total Protein Vancomycin Trough Rheumatoid Factor Complement C4 Miscellaneous Test Crossmatch 11/01/16 11/01/16 11/01/16 12:29 18:23 23:58 WBC RBC Hgb Hct MCV MCH MCHC RDW Plt Count Lymph % (Auto) [place] % (Auto) Lymph # [place] # Baso # Seg Neutrophils % Seg Neuts % (Manual) Lymphocytes % (Manual) Monocytes % (Manual) Eosinophils % (Manual) Basophils % (Manual) Nucleated RBC % Seg Neutrophils # Seg Neutrophils # Man Lymphocytes # (Manual) Monocytes # (Manual) Eosinophils # (Manual) Basophils # (Manual) PT INR Fibrinogen dRVVT Confirm Interp Factor V Activity POC ABG pH POC ABG pCO2 POC ABG pO2 ABG pO2 ABG HCO3 ABG Base Excess ABG Hemoglobin Oxyhemoglobin Sodium Potassium Chloride Carbon Dioxide BUN Creatinine Glucose POC Glucose 142 H 143 H 128 H Lactic Acid Calcium Ionized Calcium Phosphorus Magnesium Direct Bilirubin AST ALT Alkaline Phosphatase Lactate Dehydrogenase Troponin T C-Reactive Protein Total Protein Albumin Prealbumin Triglycerides Cholesterol LDL Cholesterol Direct HDL Cholesterol 25-OH Vitamin D Total PTH Intact Urine pH Urine WBC (Auto) Urine Creatinine Urine Total Protein Fluid Total Protein Vancomycin Trough Rheumatoid Factor Complement C4 Miscellaneous Test Crossmatch 11/02/16 11/02/16 11/02/16 04:16 05:29 11:58 WBC RBC Hgb Hct MCV MCH MCHC RDW Plt Count Lymph % (Auto) [place] % (Auto) Lymph # [place] # Baso # Seg Neutrophils % Seg Neuts % (Manual) Lymphocytes % (Manual) Monocytes % (Manual) Eosinophils % (Manual) Basophils % (Manual) Nucleated RBC % Seg Neutrophils # Seg Neutrophils # Man Lymphocytes # (Manual) Monocytes # (Manual) Eosinophils # (Manual) Basophils # (Manual) PT INR Fibrinogen dRVVT Confirm Interp Factor V Activity POC ABG pH POC ABG pCO2 POC ABG pO2 ABG pO2 ABG HCO3 ABG Base Excess ABG Hemoglobin Oxyhemoglobin Sodium Potassium 3.1 L Chloride Carbon Dioxide BUN 73 H Creatinine 2.3 H Glucose 112 H POC Glucose 135 H 149 H Lactic Acid Calcium Ionized Calcium Phosphorus Magnesium Direct Bilirubin AST ALT Alkaline Phosphatase Lactate Dehydrogenase Troponin T C-Reactive Protein Total Protein Albumin Prealbumin Triglycerides Cholesterol LDL Cholesterol Direct HDL Cholesterol 25-OH Vitamin D Total PTH Intact Urine pH Urine WBC (Auto) Urine Creatinine Urine Total Protein Fluid Total Protein Vancomycin Trough Rheumatoid Factor Complement C4 Miscellaneous Test Crossmatch 11/02/16 11/02/16 11/03/16 17:42 22:54 06:00 WBC RBC Hgb Hct MCV MCH MCHC RDW Plt Count Lymph % (Auto) [place] % (Auto) Lymph # [place] # Baso # Seg Neutrophils % Seg Neuts % (Manual) Lymphocytes % (Manual) Monocytes % (Manual) Eosinophils % (Manual) Basophils % (Manual) Nucleated RBC % Seg Neutrophils # Seg Neutrophils # Man Lymphocytes # (Manual) Monocytes # (Manual) Eosinophils # (Manual) Basophils # (Manual) PT INR Fibrinogen dRVVT Confirm Interp Factor V Activity POC ABG pH POC ABG pCO2 POC ABG pO2 ABG pO2 ABG HCO3 ABG Base Excess ABG Hemoglobin Oxyhemoglobin Sodium Potassium Chloride 96.7 L Carbon Dioxide BUN 41 H Creatinine 1.5 H Glucose 145 H POC Glucose 182 H 115 H Lactic Acid Calcium Ionized Calcium Phosphorus 1.60 L D Magnesium 1.50 L Direct Bilirubin AST ALT Alkaline Phosphatase Lactate Dehydrogenase Troponin T C-Reactive Protein Total Protein Albumin Prealbumin Triglycerides Cholesterol LDL Cholesterol Direct HDL Cholesterol 25-OH Vitamin D Total PTH Intact Urine pH Urine WBC (Auto) Urine Creatinine Urine Total Protein Fluid Total Protein Vancomycin Trough Rheumatoid Factor Complement C4 Miscellaneous Test Crossmatch 11/03/16 11/03/16 11/03/16 11:53 17:45 23:37 WBC RBC Hgb Hct MCV MCH MCHC RDW Plt Count Lymph % (Auto) [place] % (Auto) Lymph # [place] # Baso # Seg Neutrophils % Seg Neuts % (Manual) Lymphocytes % (Manual) Monocytes % (Manual) Eosinophils % (Manual) Basophils % (Manual) Nucleated RBC % Seg Neutrophils # Seg Neutrophils # Man Lymphocytes # (Manual) Monocytes # (Manual) Eosinophils # (Manual) Basophils # (Manual) PT INR Fibrinogen dRVVT Confirm Interp Factor V Activity POC ABG pH POC ABG pCO2 POC ABG pO2 ABG pO2 ABG HCO3 ABG Base Excess ABG Hemoglobin Oxyhemoglobin Sodium Potassium Chloride Carbon Dioxide BUN Creatinine Glucose POC Glucose 131 H 134 H 113 H Lactic Acid Calcium Ionized Calcium Phosphorus Magnesium Direct Bilirubin AST ALT Alkaline Phosphatase Lactate Dehydrogenase Troponin T C-Reactive Protein Total Protein Albumin Prealbumin Triglycerides Cholesterol LDL Cholesterol Direct HDL Cholesterol 25-OH Vitamin D Total PTH Intact Urine pH Urine WBC (Auto) Urine Creatinine Urine Total Protein Fluid Total Protein Vancomycin Trough Rheumatoid Factor Complement C4 Miscellaneous Test Crossmatch 11/04/16 11/04/16 11/04/16 05:41 06:00 12:10 WBC RBC Hgb Hct MCV MCH MCHC RDW Plt Count Lymph % (Auto) [place] % (Auto) Lymph # [place] # Baso # Seg Neutrophils % Seg Neuts % (Manual) Lymphocytes % (Manual) Monocytes % (Manual) Eosinophils % (Manual) Basophils % (Manual) Nucleated RBC % Seg Neutrophils # Seg Neutrophils # Man Lymphocytes # (Manual) Monocytes # (Manual) Eosinophils # (Manual) Basophils # (Manual) PT INR Fibrinogen dRVVT Confirm Interp Factor V Activity POC ABG pH POC ABG pCO2 POC ABG pO2 ABG pO2 ABG HCO3 ABG Base Excess ABG Hemoglobin Oxyhemoglobin Sodium Potassium Chloride 96.7 L Carbon Dioxide BUN 52 H Creatinine 1.9 H Glucose 126 H POC Glucose 137 H 191 H Lactic Acid Calcium Ionized Calcium Phosphorus Magnesium Direct Bilirubin AST ALT Alkaline Phosphatase Lactate Dehydrogenase Troponin T C-Reactive Protein Total Protein Albumin Prealbumin Triglycerides Cholesterol LDL Cholesterol Direct HDL Cholesterol 25-OH Vitamin D Total PTH Intact Urine pH Urine WBC (Auto) Urine Creatinine Urine Total Protein Fluid Total Protein Vancomycin Trough Rheumatoid Factor Complement C4 Miscellaneous Test Crossmatch 11/04/16 11/05/16 11/05/16 22:57 03:10 05:10 WBC RBC Hgb Hct MCV MCH MCHC RDW Plt Count Lymph % (Auto) [place] % (Auto) Lymph # [place] # Baso # Seg Neutrophils % Seg Neuts % (Manual) Lymphocytes % (Manual) Monocytes % (Manual) Eosinophils % (Manual) Basophils % (Manual) Nucleated RBC % Seg Neutrophils # Seg Neutrophils # Man Lymphocytes # (Manual) Monocytes # (Manual) Eosinophils # (Manual) Basophils # (Manual) PT INR Fibrinogen dRVVT Confirm Interp Factor V Activity POC ABG pH POC ABG pCO2 POC ABG pO2 ABG pO2 ABG HCO3 ABG Base Excess ABG Hemoglobin Oxyhemoglobin Sodium 136 L Potassium Chloride 97.2 L Carbon Dioxide BUN 32 H Creatinine 1.3 H Glucose 123 H POC Glucose 125 H 108 H Lactic Acid Calcium 7.8 L Ionized Calcium Phosphorus Magnesium Direct Bilirubin AST ALT Alkaline Phosphatase Lactate Dehydrogenase Troponin T C-Reactive Protein Total Protein Albumin Prealbumin Triglycerides Cholesterol LDL Cholesterol Direct HDL Cholesterol 25-OH Vitamin D Total PTH Intact Urine pH Urine WBC (Auto) Urine Creatinine Urine Total Protein Fluid Total Protein Vancomycin Trough Rheumatoid Factor Complement C4 Miscellaneous Test Crossmatch 11/05/16 11/05/16 11/05/16 12:23 13:09 13:25 WBC RBC Hgb Hct MCV MCH MCHC RDW Plt Count Lymph % (Auto) [place] % (Auto) Lymph # [place] # Baso # Seg Neutrophils % Seg Neuts % (Manual) Lymphocytes % (Manual) Monocytes % (Manual) Eosinophils % (Manual) Basophils % (Manual) Nucleated RBC % Seg Neutrophils # Seg Neutrophils # Man Lymphocytes # (Manual) Monocytes # (Manual) Eosinophils # (Manual) Basophils # (Manual) PT INR Fibrinogen dRVVT Confirm Interp Factor V Activity POC ABG pH POC ABG pCO2 POC ABG pO2 ABG pO2 ABG HCO3 ABG Base Excess ABG Hemoglobin Oxyhemoglobin Sodium Potassium Chloride Carbon Dioxide BUN Creatinine Glucose POC Glucose 124 H Lactic Acid Calcium Ionized Calcium Phosphorus Magnesium Direct Bilirubin AST ALT Alkaline Phosphatase Lactate Dehydrogenase Troponin T C-Reactive Protein 11.40 H Total Protein Albumin Prealbumin Triglycerides Cholesterol LDL Cholesterol Direct HDL Cholesterol 25-OH Vitamin D Total PTH Intact Urine pH 9.0 H Urine WBC (Auto) Urine Creatinine Urine Total Protein Fluid Total Protein Vancomycin Trough Rheumatoid Factor Complement C4 Miscellaneous Test Crossmatch 11/05/16 11/05/16 11/05/16 13:25 17:54 23:42 WBC RBC Hgb Hct MCV MCH MCHC RDW Plt Count Lymph % (Auto) [place] % (Auto) Lymph # [place] # Baso # Seg Neutrophils % Seg Neuts % (Manual) Lymphocytes % (Manual) Monocytes % (Manual) Eosinophils % (Manual) Basophils % (Manual) Nucleated RBC % Seg Neutrophils # Seg Neutrophils # Man Lymphocytes # (Manual) Monocytes # (Manual) Eosinophils # (Manual) Basophils # (Manual) PT INR Fibrinogen dRVVT Confirm Interp Factor V Activity POC ABG pH POC ABG pCO2 POC ABG pO2 ABG pO2 ABG HCO3 ABG Base Excess ABG Hemoglobin Oxyhemoglobin Sodium Potassium Chloride Carbon Dioxide BUN Creatinine Glucose POC Glucose 114 H 134 H Lactic Acid Calcium Ionized Calcium Phosphorus Magnesium Direct Bilirubin AST ALT Alkaline Phosphatase Lactate Dehydrogenase Troponin T C-Reactive Protein Total Protein Albumin Prealbumin Triglycerides Cholesterol LDL Cholesterol Direct HDL Cholesterol 25-OH Vitamin D Total PTH Intact Urine pH Urine WBC (Auto) Urine Creatinine Urine Total Protein Fluid Total Protein Vancomycin Trough Rheumatoid Factor Complement C4 Miscellaneous Test Flexitest 1 H Crossmatch 11/06/16 11/06/16 11/06/16 04:56 06:25 06:25 WBC RBC 2.50 L Hgb 7.3 L Hct 22.5 L MCV MCH MCHC RDW 16.9 H Plt Count Lymph % (Auto) [place] % (Auto) 10.5 H Lymph # [place] # 1.1 H Baso # Seg Neutrophils % Seg Neuts % (Manual) Lymphocytes % (Manual) Monocytes % (Manual) Eosinophils % (Manual) Basophils % (Manual) Nucleated RBC % Seg Neutrophils # Seg Neutrophils # Man Lymphocytes # (Manual) Monocytes # (Manual) Eosinophils # (Manual) Basophils # (Manual) PT INR Fibrinogen dRVVT Confirm Interp Factor V Activity POC ABG pH POC ABG pCO2 POC ABG pO2 ABG pO2 ABG HCO3 ABG Base Excess ABG Hemoglobin Oxyhemoglobin Sodium Potassium 5.1 H Chloride 95.9 L Carbon Dioxide BUN 52 H Creatinine 1.8 H Glucose 117 H POC Glucose 120 H Lactic Acid Calcium Ionized Calcium Phosphorus Magnesium Direct Bilirubin AST 103 H ALT 77 H Alkaline Phosphatase 285 H Lactate Dehydrogenase Troponin T C-Reactive Protein Total Protein 6.2 L Albumin 1.8 L Prealbumin 0.180 L Triglycerides Cholesterol LDL Cholesterol Direct HDL Cholesterol 25-OH Vitamin D Total PTH Intact Urine pH Urine WBC (Auto) Urine Creatinine Urine Total Protein Fluid Total Protein Vancomycin Trough Rheumatoid Factor Complement C4 Miscellaneous Test Crossmatch 11/06/16 11/06/16 11/06/16 11:56 17:14 23:52 WBC RBC Hgb Hct MCV MCH MCHC RDW Plt Count Lymph % (Auto) [place] % (Auto) Lymph # [place] # Baso # Seg Neutrophils % Seg Neuts % (Manual) Lymphocytes % (Manual) Monocytes % (Manual) Eosinophils % (Manual) Basophils % (Manual) Nucleated RBC % Seg Neutrophils # Seg Neutrophils # Man Lymphocytes # (Manual) Monocytes # (Manual) Eosinophils # (Manual) Basophils # (Manual) PT INR Fibrinogen dRVVT Confirm Interp Factor V Activity POC ABG pH POC ABG pCO2 POC ABG pO2 ABG pO2 ABG HCO3 ABG Base Excess ABG Hemoglobin Oxyhemoglobin Sodium Potassium Chloride Carbon Dioxide BUN Creatinine Glucose POC Glucose 141 H 125 H 130 H Lactic Acid Calcium Ionized Calcium Phosphorus Magnesium Direct Bilirubin AST ALT Alkaline Phosphatase Lactate Dehydrogenase Troponin T C-Reactive Protein Total Protein Albumin Prealbumin Triglycerides Cholesterol LDL Cholesterol Direct HDL Cholesterol 25-OH Vitamin D Total PTH Intact Urine pH Urine WBC (Auto) Urine Creatinine Urine Total Protein Fluid Total Protein Vancomycin Trough Rheumatoid Factor Complement C4 Miscellaneous Test Crossmatch 11/07/16 11/07/16 11/07/16 06:30 06:30 09:37 WBC RBC 2.18 L Hgb 6.3 L Hct 19.7 L* MCV MCH MCHC RDW 16.8 H Plt Count Lymph % (Auto) [place] % (Auto) 10.0 H Lymph # [place] # 1.0 H Baso # Seg Neutrophils % Seg Neuts % (Manual) Lymphocytes % (Manual) Monocytes % (Manual) Eosinophils % (Manual) Basophils % (Manual) Nucleated RBC % Seg Neutrophils # Seg Neutrophils # Man Lymphocytes # (Manual) Monocytes # (Manual) Eosinophils # (Manual) Basophils # (Manual) PT INR Fibrinogen dRVVT Confirm Interp Factor V Activity POC ABG pH POC ABG pCO2 POC ABG pO2 ABG pO2 ABG HCO3 ABG Base Excess ABG Hemoglobin Oxyhemoglobin Sodium 135 L Potassium Chloride 95.6 L Carbon Dioxide BUN 70 H Creatinine 2.0 H Glucose 126 H POC Glucose Lactic Acid Calcium Ionized Calcium Phosphorus Magnesium Direct Bilirubin AST ALT Alkaline Phosphatase Lactate Dehydrogenase Troponin T C-Reactive Protein Total Protein Albumin Prealbumin Triglycerides Cholesterol LDL Cholesterol Direct HDL Cholesterol 25-OH Vitamin D Total PTH Intact Urine pH Urine WBC (Auto) Urine Creatinine Urine Total Protein Fluid Total Protein Vancomycin Trough Rheumatoid Factor Complement C4 Miscellaneous Test Crossmatch See Detail 11/07/16 11/07/16 11/07/16 12:52 18:51 21:26 WBC RBC Hgb Hct MCV MCH MCHC RDW Plt Count Lymph % (Auto) [place] % (Auto) Lymph # [place] # Baso # Seg Neutrophils % Seg Neuts % (Manual) Lymphocytes % (Manual) Monocytes % (Manual) Eosinophils % (Manual) Basophils % (Manual) Nucleated RBC % Seg Neutrophils # Seg Neutrophils # Man Lymphocytes # (Manual) Monocytes # (Manual) Eosinophils # (Manual) Basophils # (Manual) PT INR Fibrinogen dRVVT Confirm Interp Factor V Activity POC ABG pH 7.523 H POC ABG pCO2 34.6 L POC ABG pO2 53 L ABG pO2 ABG HCO3 ABG Base Excess ABG Hemoglobin Oxyhemoglobin Sodium Potassium Chloride Carbon Dioxide BUN Creatinine Glucose POC Glucose 142 H 155 H Lactic Acid Calcium Ionized Calcium Phosphorus Magnesium Direct Bilirubin AST ALT Alkaline Phosphatase Lactate Dehydrogenase Troponin T C-Reactive Protein Total Protein Albumin Prealbumin Triglycerides Cholesterol LDL Cholesterol Direct HDL Cholesterol 25-OH Vitamin D Total PTH Intact Urine pH Urine WBC (Auto) Urine Creatinine Urine Total Protein Fluid Total Protein Vancomycin Trough Rheumatoid Factor Complement C4 Miscellaneous Test Crossmatch 11/07/16 11/08/16 11/08/16 21:34 13:03 23:37 WBC RBC 2.63 L Hgb 7.7 L Hct 22.7 L MCV MCH MCHC RDW 17.0 H Plt Count Lymph % (Auto) [place] % (Auto) Lymph # [place] # Baso # Seg Neutrophils % Seg Neuts % (Manual) Lymphocytes % (Manual) Monocytes % (Manual) Eosinophils % (Manual) Basophils % (Manual) Nucleated RBC % Seg Neutrophils # Seg Neutrophils # Man Lymphocytes # (Manual) Monocytes # (Manual) Eosinophils # (Manual) Basophils # (Manual) PT INR Fibrinogen dRVVT Confirm Interp Factor V Activity POC ABG pH 7.478 H POC ABG pCO2 34.0 L POC ABG pO2 50 L ABG pO2 ABG HCO3 ABG Base Excess ABG Hemoglobin Oxyhemoglobin Sodium Potassium Chloride Carbon Dioxide BUN Creatinine Glucose POC Glucose 113 H Lactic Acid Calcium Ionized Calcium Phosphorus Magnesium Direct Bilirubin AST ALT Alkaline Phosphatase Lactate Dehydrogenase Troponin T C-Reactive Protein Total Protein Albumin Prealbumin Triglycerides Cholesterol LDL Cholesterol Direct HDL Cholesterol 25-OH Vitamin D Total PTH Intact Urine pH Urine WBC (Auto) Urine Creatinine Urine Total Protein Fluid Total Protein Vancomycin Trough Rheumatoid Factor Complement C4 Miscellaneous Test Crossmatch 11/09/16 11/09/16 11/09/16 04:35 10:15 18:21 WBC RBC 2.68 L Hgb 7.8 L Hct 23.3 L MCV MCH MCHC RDW 17.0 H Plt Count Lymph % (Auto) [place] % (Auto) 12.1 H Lymph # [place] # 1.1 H Baso # Seg Neutrophils % Seg Neuts % (Manual) Lymphocytes % (Manual) Monocytes % (Manual) Eosinophils % (Manual) Basophils % (Manual) Nucleated RBC % Seg Neutrophils # Seg Neutrophils # Man Lymphocytes # (Manual) Monocytes # (Manual) Eosinophils # (Manual) Basophils # (Manual) PT INR Fibrinogen dRVVT Confirm Interp Factor V Activity POC ABG pH POC ABG pCO2 POC ABG pO2 ABG pO2 ABG HCO3 ABG Base Excess ABG Hemoglobin Oxyhemoglobin Sodium Potassium Chloride Carbon Dioxide BUN 51 H Creatinine 1.8 H Glucose POC Glucose 60 L Lactic Acid Calcium 8.3 L Ionized Calcium Phosphorus Magnesium Direct Bilirubin AST ALT Alkaline Phosphatase Lactate Dehydrogenase Troponin T C-Reactive Protein Total Protein Albumin Prealbumin Triglycerides Cholesterol LDL Cholesterol Direct HDL Cholesterol 25-OH Vitamin D Total PTH Intact Urine pH Urine WBC (Auto) Urine Creatinine Urine Total Protein Fluid Total Protein Vancomycin Trough Rheumatoid Factor Complement C4 Miscellaneous Test Crossmatch 11/09/16 11/10/16 11/10/16 18:55 07:00 11:51 WBC RBC Hgb Hct MCV MCH MCHC RDW Plt Count Lymph % (Auto) [place] % (Auto) Lymph # [place] # Baso # Seg Neutrophils % Seg Neuts % (Manual) Lymphocytes % (Manual) Monocytes % (Manual) Eosinophils % (Manual) Basophils % (Manual) Nucleated RBC % Seg Neutrophils # Seg Neutrophils # Man Lymphocytes # (Manual) Monocytes # (Manual) Eosinophils # (Manual) Basophils # (Manual) PT INR Fibrinogen dRVVT Confirm Interp Factor V Activity POC ABG pH POC ABG pCO2 POC ABG pO2 ABG pO2 ABG HCO3 ABG Base Excess ABG Hemoglobin Oxyhemoglobin Sodium Potassium 3.0 L D Chloride 97.4 L Carbon Dioxide BUN 28 H Creatinine 1.3 H Glucose POC Glucose 68 L 120 H Lactic Acid Calcium 7.8 L Ionized Calcium Phosphorus Magnesium Direct Bilirubin AST ALT Alkaline Phosphatase Lactate Dehydrogenase Troponin T C-Reactive Protein Total Protein Albumin Prealbumin Triglycerides Cholesterol LDL Cholesterol Direct HDL Cholesterol 25-OH Vitamin D Total PTH Intact Urine pH Urine WBC (Auto) Urine Creatinine Urine Total Protein Fluid Total Protein Vancomycin Trough Rheumatoid Factor Complement C4 Miscellaneous Test Crossmatch 11/10/16 11/11/16 11/11/16 14:20 06:59 06:59 WBC RBC 2.81 L Hgb 8.1 L Hct 24.4 L MCV MCH MCHC RDW 16.4 H Plt Count Lymph % (Auto) [place] % (Auto) 10.8 H Lymph # [place] # 1.0 H Baso # Seg Neutrophils % Seg Neuts % (Manual) Lymphocytes % (Manual) Monocytes % (Manual) Eosinophils % (Manual) Basophils % (Manual) Nucleated RBC % Seg Neutrophils # Seg Neutrophils # Man Lymphocytes # (Manual) Monocytes # (Manual) Eosinophils # (Manual) Basophils # (Manual) PT INR Fibrinogen dRVVT Confirm Interp Factor V Activity POC ABG pH POC ABG pCO2 POC ABG pO2 ABG pO2 ABG HCO3 ABG Base Excess ABG Hemoglobin Oxyhemoglobin Sodium Potassium Chloride Carbon Dioxide BUN Creatinine Glucose POC Glucose Lactic Acid Calcium Ionized Calcium Phosphorus Magnesium Direct Bilirubin AST ALT Alkaline Phosphatase Lactate Dehydrogenase 196 H Troponin T C-Reactive Protein Total Protein 6.1 L Albumin Prealbumin Triglycerides Cholesterol LDL Cholesterol Direct HDL Cholesterol 25-OH Vitamin D Total PTH Intact Urine pH Urine WBC (Auto) Urine Creatinine Urine Total Protein Fluid Total Protein < 3.0 L Vancomycin Trough Rheumatoid Factor Complement C4 Miscellaneous Test Crossmatch 11/11/16 11/11/16 11/12/16 06:59 09:50 04:00 WBC RBC Hgb Hct MCV MCH MCHC RDW Plt Count Lymph % (Auto) [place] % (Auto) Lymph # [place] # Baso # Seg Neutrophils % Seg Neuts % (Manual) Lymphocytes % (Manual) Monocytes % (Manual) Eosinophils % (Manual) Basophils % (Manual) Nucleated RBC % Seg Neutrophils # Seg Neutrophils # Man Lymphocytes # (Manual) Monocytes # (Manual) Eosinophils # (Manual) Basophils # (Manual) PT INR 1.18 H Fibrinogen dRVVT Confirm Interp Factor V Activity POC ABG pH POC ABG pCO2 POC ABG pO2 ABG pO2 ABG HCO3 ABG Base Excess ABG Hemoglobin Oxyhemoglobin Sodium 136 L 133 L Potassium Chloride 96.1 L 94.8 L Carbon Dioxide 21 L BUN 37 H 42 H Creatinine 1.8 H 2.0 H Glucose POC Glucose Lactic Acid Calcium Ionized Calcium Phosphorus Magnesium Direct Bilirubin AST ALT Alkaline Phosphatase Lactate Dehydrogenase Troponin T C-Reactive Protein Total Protein Albumin Prealbumin Triglycerides Cholesterol LDL Cholesterol Direct HDL Cholesterol 25-OH Vitamin D Total PTH Intact Urine pH Urine WBC (Auto) Urine Creatinine Urine Total Protein Fluid Total Protein Vancomycin Trough Rheumatoid Factor Complement C4 Miscellaneous Test Crossmatch 11/12/16 11/12/16 11/13/16 04:00 23:55 05:53 WBC RBC Hgb 8.9 L Hct 27.2 L MCV MCH MCHC RDW Plt Count Lymph % (Auto) [place] % (Auto) Lymph # [place] # Baso # Seg Neutrophils % Seg Neuts % (Manual) Lymphocytes % (Manual) Monocytes % (Manual) Eosinophils % (Manual) Basophils % (Manual) Nucleated RBC % Seg Neutrophils # Seg Neutrophils # Man Lymphocytes # (Manual) Monocytes # (Manual) Eosinophils # (Manual) Basophils # (Manual) PT INR Fibrinogen dRVVT Confirm Interp Factor V Activity POC ABG pH POC ABG pCO2 POC ABG pO2 ABG pO2 ABG HCO3 ABG Base Excess ABG Hemoglobin Oxyhemoglobin Sodium Potassium Chloride Carbon Dioxide BUN Creatinine Glucose POC Glucose 132 H 120 H Lactic Acid Calcium Ionized Calcium Phosphorus Magnesium Direct Bilirubin AST ALT Alkaline Phosphatase Lactate Dehydrogenase Troponin T C-Reactive Protein Total Protein Albumin Prealbumin Triglycerides Cholesterol LDL Cholesterol Direct HDL Cholesterol 25-OH Vitamin D Total PTH Intact Urine pH Urine WBC (Auto) Urine Creatinine Urine Total Protein Fluid Total Protein Vancomycin Trough Rheumatoid Factor Complement C4 Miscellaneous Test Crossmatch 11/13/16 11/13/16 11/13/16 11:43 17:09 23:41 WBC RBC Hgb Hct MCV MCH MCHC RDW Plt Count Lymph % (Auto) [place] % (Auto) Lymph # [place] # Baso # Seg Neutrophils % Seg Neuts % (Manual) Lymphocytes % (Manual) Monocytes % (Manual) Eosinophils % (Manual) Basophils % (Manual) Nucleated RBC % Seg Neutrophils # Seg Neutrophils # Man Lymphocytes # (Manual) Monocytes # (Manual) Eosinophils # (Manual) Basophils # (Manual) PT INR Fibrinogen dRVVT Confirm Interp Factor V Activity POC ABG pH POC ABG pCO2 POC ABG pO2 ABG pO2 ABG HCO3 ABG Base Excess ABG Hemoglobin Oxyhemoglobin Sodium Potassium Chloride Carbon Dioxide BUN Creatinine Glucose POC Glucose 114 H 113 H 108 H Lactic Acid Calcium Ionized Calcium Phosphorus Magnesium Direct Bilirubin AST ALT Alkaline Phosphatase Lactate Dehydrogenase Troponin T C-Reactive Protein Total Protein Albumin Prealbumin Triglycerides Cholesterol LDL Cholesterol Direct HDL Cholesterol 25-OH Vitamin D Total PTH Intact Urine pH Urine WBC (Auto) Urine Creatinine Urine Total Protein Fluid Total Protein Vancomycin Trough Rheumatoid Factor Complement C4 Miscellaneous Test Crossmatch 11/13/16 11/15/16 11/15/16 Unknown 00:37 03:30 WBC 11.2 H RBC 2.72 L Hgb 7.6 L Hct 23.4 L MCV MCH MCHC RDW 16.5 H Plt Count Lymph % (Auto) [place] % (Auto) Lymph # [place] # Baso # Seg Neutrophils % Seg Neuts % (Manual) Lymphocytes % (Manual) Monocytes % (Manual) Eosinophils % (Manual) Basophils % (Manual) Nucleated RBC % Seg Neutrophils # Seg Neutrophils # Man Lymphocytes # (Manual) Monocytes # (Manual) Eosinophils # (Manual) Basophils # (Manual) PT INR Fibrinogen dRVVT Confirm Interp Factor V Activity POC ABG pH POC ABG pCO2 POC ABG pO2 ABG pO2 ABG HCO3 ABG Base Excess ABG Hemoglobin Oxyhemoglobin Sodium 135 L Potassium Chloride 95.2 L Carbon Dioxide BUN 52 H Creatinine 2.2 H Glucose POC Glucose 108 H Lactic Acid Calcium Ionized Calcium Phosphorus Magnesium Direct Bilirubin AST ALT Alkaline Phosphatase Lactate Dehydrogenase Troponin T C-Reactive Protein Total Protein Albumin Prealbumin Triglycerides Cholesterol LDL Cholesterol Direct HDL Cholesterol 25-OH Vitamin D Total PTH Intact Urine pH Urine WBC (Auto) Urine Creatinine Urine Total Protein Fluid Total Protein Vancomycin Trough Rheumatoid Factor Complement C4 Miscellaneous Test Crossmatch 11/15/16 11/15/16 11/15/16 03:30 05:04 11:50 WBC RBC Hgb Hct MCV MCH MCHC RDW Plt Count Lymph % (Auto) [place] % (Auto) Lymph # [place] # Baso # Seg Neutrophils % Seg Neuts % (Manual) Lymphocytes % (Manual) Monocytes % (Manual) Eosinophils % (Manual) Basophils % (Manual) Nucleated RBC % Seg Neutrophils # Seg Neutrophils # Man Lymphocytes # (Manual) Monocytes # (Manual) Eosinophils # (Manual) Basophils # (Manual) PT INR Fibrinogen dRVVT Confirm Interp Factor V Activity POC ABG pH POC ABG pCO2 POC ABG pO2 ABG pO2 ABG HCO3 ABG Base Excess ABG Hemoglobin Oxyhemoglobin Sodium Potassium 3.4 L Chloride Carbon Dioxide BUN 25 H Creatinine 1.5 H Glucose 103 H POC Glucose 121 H 144 H Lactic Acid Calcium Ionized Calcium Phosphorus Magnesium Direct Bilirubin AST ALT Alkaline Phosphatase Lactate Dehydrogenase Troponin T C-Reactive Protein Total Protein Albumin Prealbumin Triglycerides Cholesterol LDL Cholesterol Direct HDL Cholesterol 25-OH Vitamin D Total PTH Intact Urine pH Urine WBC (Auto) Urine Creatinine Urine Total Protein Fluid Total Protein Vancomycin Trough Rheumatoid Factor Complement C4 Miscellaneous Test Crossmatch 11/15/16 11/15/16 11/16/16 21:28 23:20 11:44 WBC RBC Hgb Hct MCV MCH MCHC RDW Plt Count Lymph % (Auto) [place] % (Auto) Lymph # [place] # Baso # Seg Neutrophils % Seg Neuts % (Manual) Lymphocytes % (Manual) Monocytes % (Manual) Eosinophils % (Manual) Basophils % (Manual) Nucleated RBC % Seg Neutrophils # Seg Neutrophils # Man Lymphocytes # (Manual) Monocytes # (Manual) Eosinophils # (Manual) Basophils # (Manual) PT INR Fibrinogen dRVVT Confirm Interp Factor V Activity POC ABG pH 7.462 H POC ABG pCO2 POC ABG pO2 71 L ABG pO2 ABG HCO3 ABG Base Excess ABG Hemoglobin Oxyhemoglobin Sodium Potassium Chloride Carbon Dioxide BUN Creatinine Glucose POC Glucose 116 H 133 H Lactic Acid Calcium Ionized Calcium Phosphorus Magnesium Direct Bilirubin AST ALT Alkaline Phosphatase Lactate Dehydrogenase Troponin T C-Reactive Protein Total Protein Albumin Prealbumin Triglycerides Cholesterol LDL Cholesterol Direct HDL Cholesterol 25-OH Vitamin D Total PTH Intact Urine pH Urine WBC (Auto) Urine Creatinine Urine Total Protein Fluid Total Protein Vancomycin Trough Rheumatoid Factor Complement C4 Miscellaneous Test Crossmatch 11/16/16 11/16/16 11/16/16 12:20 17:05 23:35 WBC 11.7 H RBC 2.73 L Hgb 7.6 L Hct 23.7 L MCV MCH MCHC RDW 16.6 H Plt Count Lymph % (Auto) [place] % (Auto) Lymph # [place] # Baso # Seg Neutrophils % Seg Neuts % (Manual) Lymphocytes % (Manual) Monocytes % (Manual) Eosinophils % (Manual) Basophils % (Manual) Nucleated RBC % Seg Neutrophils # Seg Neutrophils # Man Lymphocytes # (Manual) Monocytes # (Manual) Eosinophils # (Manual) Basophils # (Manual) PT INR Fibrinogen dRVVT Confirm Interp Factor V Activity POC ABG pH POC ABG pCO2 POC ABG pO2 ABG pO2 ABG HCO3 ABG Base Excess ABG Hemoglobin Oxyhemoglobin Sodium Potassium Chloride Carbon Dioxide BUN Creatinine Glucose POC Glucose 154 H 125 H Lactic Acid Calcium Ionized Calcium Phosphorus Magnesium Direct Bilirubin AST ALT Alkaline Phosphatase Lactate Dehydrogenase Troponin T C-Reactive Protein Total Protein Albumin Prealbumin Triglycerides Cholesterol LDL Cholesterol Direct HDL Cholesterol 25-OH Vitamin D Total PTH Intact Urine pH Urine WBC (Auto) Urine Creatinine Urine Total Protein Fluid Total Protein Vancomycin Trough Rheumatoid Factor Complement C4 Miscellaneous Test Crossmatch 11/17/16 11/17/16 11/17/16 03:20 03:20 03:20 WBC RBC 2.55 L Hgb 7.3 L Hct 21.9 L MCV MCH MCHC RDW 16.6 H Plt Count Lymph % (Auto) [place] % (Auto) 11.5 H Lymph # [place] # 1.1 H Baso # Seg Neutrophils % Seg Neuts % (Manual) Lymphocytes % (Manual) Monocytes % (Manual) Eosinophils % (Manual) Basophils % (Manual) Nucleated RBC % Seg Neutrophils # Seg Neutrophils # Man Lymphocytes # (Manual) Monocytes # (Manual) Eosinophils # (Manual) Basophils # (Manual) PT 16.8 H INR 1.37 H Fibrinogen dRVVT Confirm Interp Factor V Activity POC ABG pH POC ABG pCO2 POC ABG pO2 ABG pO2 ABG HCO3 ABG Base Excess ABG Hemoglobin Oxyhemoglobin Sodium Potassium 3.5 L Chloride Carbon Dioxide BUN 21 H Creatinine Glucose POC Glucose Lactic Acid Calcium 7.9 L Ionized Calcium Phosphorus Magnesium Direct Bilirubin AST ALT Alkaline Phosphatase Lactate Dehydrogenase Troponin T C-Reactive Protein Total Protein Albumin Prealbumin Triglycerides Cholesterol LDL Cholesterol Direct HDL Cholesterol 25-OH Vitamin D Total PTH Intact Urine pH Urine WBC (Auto) Urine Creatinine Urine Total Protein Fluid Total Protein Vancomycin Trough Rheumatoid Factor Complement C4 Miscellaneous Test Crossmatch 11/17/16 11/17/16 11/17/16 06:34 11:21 21:22 WBC RBC Hgb Hct MCV MCH MCHC RDW Plt Count Lymph % (Auto) [place] % (Auto) Lymph # [place] # Baso # Seg Neutrophils % Seg Neuts % (Manual) Lymphocytes % (Manual) Monocytes % (Manual) Eosinophils % (Manual) Basophils % (Manual) Nucleated RBC % Seg Neutrophils # Seg Neutrophils # Man Lymphocytes # (Manual) Monocytes # (Manual) Eosinophils # (Manual) Basophils # (Manual) PT INR Fibrinogen dRVVT Confirm Interp Factor V Activity POC ABG pH 7.467 H POC ABG pCO2 POC ABG pO2 73 L ABG pO2 ABG HCO3 ABG Base Excess ABG Hemoglobin Oxyhemoglobin Sodium Potassium Chloride Carbon Dioxide BUN Creatinine Glucose POC Glucose 121 H 119 H Lactic Acid Calcium Ionized Calcium Phosphorus Magnesium Direct Bilirubin AST ALT Alkaline Phosphatase Lactate Dehydrogenase Troponin T C-Reactive Protein Total Protein Albumin Prealbumin Triglycerides Cholesterol LDL Cholesterol Direct HDL Cholesterol 25-OH Vitamin D Total PTH Intact Urine pH Urine WBC (Auto) Urine Creatinine Urine Total Protein Fluid Total Protein Vancomycin Trough Rheumatoid Factor Complement C4 Miscellaneous Test Crossmatch 11/18/16 11/18/16 11/19/16 12:16 17:19 00:00 WBC RBC Hgb Hct MCV MCH MCHC RDW Plt Count Lymph % (Auto) [place] % (Auto) Lymph # [place] # Baso # Seg Neutrophils % Seg Neuts % (Manual) Lymphocytes % (Manual) Monocytes % (Manual) Eosinophils % (Manual) Basophils % (Manual) Nucleated RBC % Seg Neutrophils # Seg Neutrophils # Man Lymphocytes # (Manual) Monocytes # (Manual) Eosinophils # (Manual) Basophils # (Manual) PT INR Fibrinogen dRVVT Confirm Interp Factor V Activity POC ABG pH POC ABG pCO2 POC ABG pO2 ABG pO2 ABG HCO3 ABG Base Excess ABG Hemoglobin Oxyhemoglobin Sodium Potassium Chloride Carbon Dioxide BUN Creatinine Glucose POC Glucose 124 H 162 H 139 H Lactic Acid Calcium Ionized Calcium Phosphorus Magnesium Direct Bilirubin AST ALT Alkaline Phosphatase Lactate Dehydrogenase Troponin T C-Reactive Protein Total Protein Albumin Prealbumin Triglycerides Cholesterol LDL Cholesterol Direct HDL Cholesterol 25-OH Vitamin D Total PTH Intact Urine pH Urine WBC (Auto) Urine Creatinine Urine Total Protein Fluid Total Protein Vancomycin Trough Rheumatoid Factor Complement C4 Miscellaneous Test Crossmatch 11/19/16 11/19/16 11/20/16 05:00 12:43 00:40 WBC RBC Hgb Hct MCV MCH MCHC RDW Plt Count Lymph % (Auto) [place] % (Auto) Lymph # [place] # Baso # Seg Neutrophils % Seg Neuts % (Manual) Lymphocytes % (Manual) Monocytes % (Manual) Eosinophils % (Manual) Basophils % (Manual) Nucleated RBC % Seg Neutrophils # Seg Neutrophils # Man Lymphocytes # (Manual) Monocytes # (Manual) Eosinophils # (Manual) Basophils # (Manual) PT INR Fibrinogen dRVVT Confirm Interp Factor V Activity POC ABG pH POC ABG pCO2 POC ABG pO2 ABG pO2 ABG HCO3 ABG Base Excess ABG Hemoglobin Oxyhemoglobin Sodium Potassium Chloride Carbon Dioxide BUN Creatinine Glucose POC Glucose 110 H 125 H 136 H Lactic Acid Calcium Ionized Calcium Phosphorus Magnesium Direct Bilirubin AST ALT Alkaline Phosphatase Lactate Dehydrogenase Troponin T C-Reactive Protein Total Protein Albumin Prealbumin Triglycerides Cholesterol LDL Cholesterol Direct HDL Cholesterol 25-OH Vitamin D Total PTH Intact Urine pH Urine WBC (Auto) Urine Creatinine Urine Total Protein Fluid Total Protein Vancomycin Trough Rheumatoid Factor Complement C4 Miscellaneous Test Crossmatch 11/20/16 11/20/16 11/20/16 05:00 05:00 05:51 WBC 13.1 H RBC 2.74 L Hgb 7.7 L Hct 23.6 L MCV MCH MCHC RDW 16.9 H Plt Count Lymph % (Auto) [place] % (Auto) 10.8 H Lymph # [place] # 1.4 H Baso # Seg Neutrophils % Seg Neuts % (Manual) Lymphocytes % (Manual) Monocytes % (Manual) Eosinophils % (Manual) Basophils % (Manual) Nucleated RBC % Seg Neutrophils # 7.9 H Seg Neutrophils # Man Lymphocytes # (Manual) Monocytes # (Manual) Eosinophils # (Manual) Basophils # (Manual) PT INR Fibrinogen dRVVT Confirm Interp Factor V Activity POC ABG pH POC ABG pCO2 POC ABG pO2 ABG pO2 ABG HCO3 ABG Base Excess ABG Hemoglobin Oxyhemoglobin Sodium Potassium Chloride Carbon Dioxide BUN 31 H Creatinine 1.8 H Glucose 129 H POC Glucose 133 H Lactic Acid Calcium Ionized Calcium Phosphorus Magnesium Direct Bilirubin AST ALT Alkaline Phosphatase Lactate Dehydrogenase Troponin T C-Reactive Protein Total Protein Albumin Prealbumin Triglycerides Cholesterol LDL Cholesterol Direct HDL Cholesterol 25-OH Vitamin D Total PTH Intact Urine pH Urine WBC (Auto) Urine Creatinine Urine Total Protein Fluid Total Protein Vancomycin Trough Rheumatoid Factor Complement C4 Miscellaneous Test Crossmatch 11/20/16 11/20/16 11/21/16 12:40 18:10 01:20 WBC RBC Hgb Hct MCV MCH MCHC RDW Plt Count Lymph % (Auto) [place] % (Auto) Lymph # [place] # Baso # Seg Neutrophils % Seg Neuts % (Manual) Lymphocytes % (Manual) Monocytes % (Manual) Eosinophils % (Manual) Basophils % (Manual) Nucleated RBC % Seg Neutrophils # Seg Neutrophils # Man Lymphocytes # (Manual) Monocytes # (Manual) Eosinophils # (Manual) Basophils # (Manual) PT INR Fibrinogen dRVVT Confirm Interp Factor V Activity POC ABG pH POC ABG pCO2 POC ABG pO2 ABG pO2 ABG HCO3 ABG Base Excess ABG Hemoglobin Oxyhemoglobin Sodium Potassium Chloride Carbon Dioxide BUN Creatinine Glucose POC Glucose 134 H 138 H 136 H Lactic Acid Calcium Ionized Calcium Phosphorus Magnesium Direct Bilirubin AST ALT Alkaline Phosphatase Lactate Dehydrogenase Troponin T C-Reactive Protein Total Protein Albumin Prealbumin Triglycerides Cholesterol LDL Cholesterol Direct HDL Cholesterol 25-OH Vitamin D Total PTH Intact Urine pH Urine WBC (Auto) Urine Creatinine Urine Total Protein Fluid Total Protein Vancomycin Trough Rheumatoid Factor Complement C4 Miscellaneous Test Crossmatch 11/21/16 11/21/16 11/21/16 07:04 07:45 07:45 WBC 22.0 H RBC 2.91 L Hgb 8.2 L Hct 25.4 L MCV MCH MCHC RDW 17.1 H Plt Count Lymph % (Auto) [place] % (Auto) Lymph # [place] # Baso # Seg Neutrophils % Seg Neuts % (Manual) Lymphocytes % (Manual) 8.0 L Monocytes % (Manual) Eosinophils % (Manual) Basophils % (Manual) Nucleated RBC % Seg Neutrophils # Seg Neutrophils # Man 14.7 H Lymphocytes # (Manual) Monocytes # (Manual) 1.1 H Eosinophils # (Manual) Basophils # (Manual) PT INR Fibrinogen dRVVT Confirm Interp Factor V Activity POC ABG pH POC ABG pCO2 POC ABG pO2 ABG pO2 ABG HCO3 ABG Base Excess ABG Hemoglobin Oxyhemoglobin Sodium Potassium Chloride Carbon Dioxide BUN 42 H Creatinine 2.0 H Glucose POC Glucose 108 H Lactic Acid Calcium Ionized Calcium Phosphorus Magnesium Direct Bilirubin AST ALT Alkaline Phosphatase Lactate Dehydrogenase Troponin T C-Reactive Protein Total Protein Albumin Prealbumin Triglycerides Cholesterol LDL Cholesterol Direct HDL Cholesterol 25-OH Vitamin D Total PTH Intact Urine pH Urine WBC (Auto) Urine Creatinine Urine Total Protein Fluid Total Protein Vancomycin Trough Rheumatoid Factor Complement C4 Miscellaneous Test Crossmatch 11/21/16 11/21/16 11/21/16 08:38 10:09 11:20 WBC RBC Hgb Hct MCV MCH MCHC RDW Plt Count Lymph % (Auto) [place] % (Auto) Lymph # [place] # Baso # Seg Neutrophils % Seg Neuts % (Manual) Lymphocytes % (Manual) Monocytes % (Manual) Eosinophils % (Manual) Basophils % (Manual) Nucleated RBC % Seg Neutrophils # Seg Neutrophils # Man Lymphocytes # (Manual) Monocytes # (Manual) Eosinophils # (Manual) Basophils # (Manual) PT INR Fibrinogen dRVVT Confirm Interp Factor V Activity POC ABG pH 7.346 L POC ABG pCO2 34.4 L POC ABG pO2 314 H ABG pO2 ABG HCO3 ABG Base Excess ABG Hemoglobin Oxyhemoglobin Sodium Potassium Chloride Carbon Dioxide BUN Creatinine Glucose POC Glucose 195 H 153 H Lactic Acid Calcium Ionized Calcium Phosphorus Magnesium Direct Bilirubin AST ALT Alkaline Phosphatase Lactate Dehydrogenase Troponin T C-Reactive Protein Total Protein Albumin Prealbumin Triglycerides Cholesterol LDL Cholesterol Direct HDL Cholesterol 25-OH Vitamin D Total PTH Intact Urine pH Urine WBC (Auto) Urine Creatinine Urine Total Protein Fluid Total Protein Vancomycin Trough Rheumatoid Factor Complement C4 Miscellaneous Test Crossmatch 11/21/16 11/22/16 11/22/16 23:37 04:48 05:00 WBC 29.7 H RBC 2.73 L Hgb 7.5 L Hct 24.2 L MCV MCH 27 L MCHC RDW 17.4 H Plt Count Lymph % (Auto) [place] % (Auto) Lymph # [place] # Baso # Seg Neutrophils % Seg Neuts % (Manual) Lymphocytes % (Manual) 7.0 L Monocytes % (Manual) Eosinophils % (Manual) Basophils % (Manual) Nucleated RBC % Seg Neutrophils # Seg Neutrophils # Man 15.4 H Lymphocytes # (Manual) Monocytes # (Manual) Eosinophils # (Manual) Basophils # (Manual) PT INR Fibrinogen dRVVT Confirm Interp Factor V Activity POC ABG pH POC ABG pCO2 24.6 L POC ABG pO2 189 H ABG pO2 ABG HCO3 ABG Base Excess ABG Hemoglobin Oxyhemoglobin Sodium Potassium Chloride Carbon Dioxide BUN Creatinine Glucose POC Glucose 65 L Lactic Acid Calcium Ionized Calcium Phosphorus Magnesium Direct Bilirubin AST ALT Alkaline Phosphatase Lactate Dehydrogenase Troponin T C-Reactive Protein Total Protein Albumin Prealbumin Triglycerides Cholesterol LDL Cholesterol Direct HDL Cholesterol 25-OH Vitamin D Total PTH Intact Urine pH Urine WBC (Auto) Urine Creatinine Urine Total Protein Fluid Total Protein Vancomycin Trough Rheumatoid Factor Complement C4 Miscellaneous Test Crossmatch 11/22/16 11/23/16 11/23/16 05:00 03:44 04:06 WBC RBC 2.52 L Hgb 7.2 L Hct 21.5 L MCV MCH MCHC RDW 17.1 H Plt Count Lymph % (Auto) [place] % (Auto) 12.4 H Lymph # [place] # 1.4 H Baso # Seg Neutrophils % Seg Neuts % (Manual) Lymphocytes % (Manual) Monocytes % (Manual) Eosinophils % (Manual) Basophils % (Manual) Nucleated RBC % Seg Neutrophils # Seg Neutrophils # Man Lymphocytes # (Manual) Monocytes # (Manual) Eosinophils # (Manual) Basophils # (Manual) PT INR Fibrinogen dRVVT Confirm Interp Factor V Activity POC ABG pH 7.493 H POC ABG pCO2 29.5 L POC ABG pO2 49 L ABG pO2 ABG HCO3 ABG Base Excess ABG Hemoglobin Oxyhemoglobin Sodium 134 L Potassium Chloride 95.9 L Carbon Dioxide 14 L D BUN 51 H Creatinine 2.6 H Glucose POC Glucose Lactic Acid Calcium Ionized Calcium Phosphorus Magnesium Direct Bilirubin AST ALT Alkaline Phosphatase Lactate Dehydrogenase Troponin T C-Reactive Protein Total Protein Albumin Prealbumin Triglycerides Cholesterol LDL Cholesterol Direct HDL Cholesterol 25-OH Vitamin D Total PTH Intact Urine pH Urine WBC (Auto) Urine Creatinine Urine Total Protein Fluid Total Protein Vancomycin Trough Rheumatoid Factor Complement C4 Miscellaneous Test Crossmatch 11/23/16 11/23/16 11/24/16 04:06 11:29 06:39 WBC RBC Hgb Hct MCV MCH MCHC RDW Plt Count Lymph % (Auto) [place] % (Auto) Lymph # [place] # Baso # Seg Neutrophils % Seg Neuts % (Manual) Lymphocytes % (Manual) Monocytes % (Manual) Eosinophils % (Manual) Basophils % (Manual) Nucleated RBC % Seg Neutrophils # Seg Neutrophils # Man Lymphocytes # (Manual) Monocytes # (Manual) Eosinophils # (Manual) Basophils # (Manual) PT INR Fibrinogen dRVVT Confirm Interp Factor V Activity POC ABG pH POC ABG pCO2 POC ABG pO2 ABG pO2 ABG HCO3 ABG Base Excess ABG Hemoglobin Oxyhemoglobin Sodium 136 L Potassium Chloride 95.2 L Carbon Dioxide BUN 60 H Creatinine 2.9 H Glucose POC Glucose 69 L 305 H Lactic Acid Calcium Ionized Calcium Phosphorus Magnesium 1.60 L Direct Bilirubin AST ALT Alkaline Phosphatase Lactate Dehydrogenase Troponin T C-Reactive Protein Total Protein Albumin Prealbumin Triglycerides Cholesterol LDL Cholesterol Direct HDL Cholesterol 25-OH Vitamin D Total PTH Intact Urine pH Urine WBC (Auto) Urine Creatinine Urine Total Protein Fluid Total Protein Vancomycin Trough Rheumatoid Factor Complement C4 Miscellaneous Test Crossmatch 11/24/16 11/24/16 11/24/16 06:43 08:08 08:08 WBC 11.2 H RBC 2.47 L Hgb 6.8 L Hct 20.6 L MCV MCH MCHC RDW 17.0 H Plt Count Lymph % (Auto) [place] % (Auto) 10.3 H Lymph # [place] # 1.2 H Baso # Seg Neutrophils % Seg Neuts % (Manual) Lymphocytes % (Manual) Monocytes % (Manual) Eosinophils % (Manual) Basophils % (Manual) Nucleated RBC % Seg Neutrophils # Seg Neutrophils # Man Lymphocytes # (Manual) Monocytes # (Manual) Eosinophils # (Manual) Basophils # (Manual) PT INR Fibrinogen dRVVT Confirm Interp Factor V Activity POC ABG pH POC ABG pCO2 POC ABG pO2 ABG pO2 ABG HCO3 ABG Base Excess ABG Hemoglobin Oxyhemoglobin Sodium 135 L Potassium Chloride 96.3 L Carbon Dioxide BUN 61 H Creatinine 3.1 H Glucose POC Glucose 62 L Lactic Acid Calcium 8.2 L Ionized Calcium Phosphorus Magnesium Direct Bilirubin AST ALT Alkaline Phosphatase Lactate Dehydrogenase Troponin T C-Reactive Protein Total Protein Albumin Prealbumin Triglycerides Cholesterol LDL Cholesterol Direct HDL Cholesterol 25-OH Vitamin D Total PTH Intact Urine pH Urine WBC (Auto) Urine Creatinine Urine Total Protein Fluid Total Protein Vancomycin Trough Rheumatoid Factor Complement C4 Miscellaneous Test Crossmatch 11/24/16 11/24/16 11/24/16 08:34 11:20 12:41 WBC RBC Hgb Hct MCV MCH MCHC RDW Plt Count Lymph % (Auto) [place] % (Auto) Lymph # [place] # Baso # Seg Neutrophils % Seg Neuts % (Manual) Lymphocytes % (Manual) Monocytes % (Manual) Eosinophils % (Manual) Basophils % (Manual) Nucleated RBC % Seg Neutrophils # Seg Neutrophils # Man Lymphocytes # (Manual) Monocytes # (Manual) Eosinophils # (Manual) Basophils # (Manual) PT INR Fibrinogen dRVVT Confirm Interp Factor V Activity POC ABG pH POC ABG pCO2 POC ABG pO2 ABG pO2 ABG HCO3 ABG Base Excess ABG Hemoglobin Oxyhemoglobin Sodium Potassium Chloride Carbon Dioxide BUN Creatinine Glucose POC Glucose 108 H Lactic Acid Calcium Ionized Calcium Phosphorus Magnesium 1.60 L Direct Bilirubin AST ALT Alkaline Phosphatase Lactate Dehydrogenase Troponin T C-Reactive Protein Total Protein Albumin Prealbumin Triglycerides Cholesterol LDL Cholesterol Direct HDL Cholesterol 25-OH Vitamin D Total PTH Intact Urine pH Urine WBC (Auto) Urine Creatinine Urine Total Protein Fluid Total Protein Vancomycin Trough Rheumatoid Factor Complement C4 Miscellaneous Test Crossmatch See Detail 11/25/16 11/25/16 11/25/16 00:03 04:42 04:42 WBC RBC 3.03 L Hgb 8.6 L Hct 25.3 L MCV MCH MCHC RDW 16.2 H Plt Count Lymph % (Auto) [place] % (Auto) 8.1 H Lymph # [place] # Baso # Seg Neutrophils % 71.3 H Seg Neuts % (Manual) Lymphocytes % (Manual) Monocytes % (Manual) Eosinophils % (Manual) Basophils % (Manual) Nucleated RBC % Seg Neutrophils # Seg Neutrophils # Man Lymphocytes # (Manual) Monocytes # (Manual) Eosinophils # (Manual) Basophils # (Manual) PT INR Fibrinogen dRVVT Confirm Interp Factor V Activity POC ABG pH POC ABG pCO2 POC ABG pO2 ABG pO2 ABG HCO3 ABG Base Excess ABG Hemoglobin Oxyhemoglobin Sodium Potassium Chloride Carbon Dioxide BUN 61 H Creatinine 3.0 H Glucose 102 H POC Glucose 113 H Lactic Acid Calcium 8.2 L Ionized Calcium Phosphorus Magnesium Direct Bilirubin AST ALT Alkaline Phosphatase 142 H Lactate Dehydrogenase Troponin T C-Reactive Protein Total Protein 5.7 L Albumin 1.5 L Prealbumin Triglycerides Cholesterol LDL Cholesterol Direct HDL Cholesterol 25-OH Vitamin D Total PTH Intact Urine pH Urine WBC (Auto) Urine Creatinine Urine Total Protein Fluid Total Protein Vancomycin Trough Rheumatoid Factor Complement C4 Miscellaneous Test Crossmatch 11/25/16 11/25/16 11/25/16 05:12 11:31 14:12 WBC RBC Hgb Hct MCV MCH MCHC RDW Plt Count Lymph % (Auto) [place] % (Auto) Lymph # [place] # Baso # Seg Neutrophils % Seg Neuts % (Manual) Lymphocytes % (Manual) Monocytes % (Manual) Eosinophils % (Manual) Basophils % (Manual) Nucleated RBC % Seg Neutrophils # Seg Neutrophils # Man Lymphocytes # (Manual) Monocytes # (Manual) Eosinophils # (Manual) Basophils # (Manual) PT INR Fibrinogen dRVVT Confirm Interp Factor V Activity POC ABG pH 7.487 H POC ABG pCO2 POC ABG pO2 153 H ABG pO2 ABG HCO3 ABG Base Excess ABG Hemoglobin Oxyhemoglobin Sodium Potassium Chloride Carbon Dioxide BUN Creatinine Glucose POC Glucose 131 H 140 H Lactic Acid Calcium Ionized Calcium Phosphorus Magnesium Direct Bilirubin AST ALT Alkaline Phosphatase Lactate Dehydrogenase Troponin T C-Reactive Protein Total Protein Albumin Prealbumin Triglycerides Cholesterol LDL Cholesterol Direct HDL Cholesterol 25-OH Vitamin D Total PTH Intact Urine pH Urine WBC (Auto) Urine Creatinine Urine Total Protein Fluid Total Protein Vancomycin Trough Rheumatoid Factor Complement C4 Miscellaneous Test Crossmatch 11/25/16 11/26/16 11/26/16 17:23 00:09 05:13 WBC RBC 2.94 L Hgb 8.4 L Hct 24.6 L MCV MCH MCHC RDW 16.4 H Plt Count Lymph % (Auto) [place] % (Auto) 12.3 H Lymph # [place] # 1.1 H Baso # Seg Neutrophils % Seg Neuts % (Manual) Lymphocytes % (Manual) Monocytes % (Manual) Eosinophils % (Manual) Basophils % (Manual) Nucleated RBC % Seg Neutrophils # Seg Neutrophils # Man Lymphocytes # (Manual) Monocytes # (Manual) Eosinophils # (Manual) Basophils # (Manual) PT INR Fibrinogen dRVVT Confirm Interp Factor V Activity POC ABG pH POC ABG pCO2 POC ABG pO2 ABG pO2 ABG HCO3 ABG Base Excess ABG Hemoglobin Oxyhemoglobin Sodium Potassium Chloride Carbon Dioxide BUN Creatinine Glucose POC Glucose 146 H 112 H Lactic Acid Calcium Ionized Calcium Phosphorus Magnesium Direct Bilirubin AST ALT Alkaline Phosphatase Lactate Dehydrogenase Troponin T C-Reactive Protein Total Protein Albumin Prealbumin Triglycerides Cholesterol LDL Cholesterol Direct HDL Cholesterol 25-OH Vitamin D Total PTH Intact Urine pH Urine WBC (Auto) Urine Creatinine Urine Total Protein Fluid Total Protein Vancomycin Trough Rheumatoid Factor Complement C4 Miscellaneous Test Crossmatch 11/26/16 11/26/16 11/26/16 05:13 05:28 11:53 WBC RBC Hgb Hct MCV MCH MCHC RDW Plt Count Lymph % (Auto) [place] % (Auto) Lymph # [place] # Baso # Seg Neutrophils % Seg Neuts % (Manual) Lymphocytes % (Manual) Monocytes % (Manual) Eosinophils % (Manual) Basophils % (Manual) Nucleated RBC % Seg Neutrophils # Seg Neutrophils # Man Lymphocytes # (Manual) Monocytes # (Manual) Eosinophils # (Manual) Basophils # (Manual) PT INR Fibrinogen dRVVT Confirm Interp Factor V Activity POC ABG pH POC ABG pCO2 POC ABG pO2 ABG pO2 ABG HCO3 ABG Base Excess ABG Hemoglobin Oxyhemoglobin Sodium Potassium Chloride 97.8 L Carbon Dioxide BUN 37 H Creatinine 2.0 H Glucose 109 H POC Glucose 117 H 111 H Lactic Acid Calcium 7.9 L Ionized Calcium Phosphorus 1.80 L D Magnesium Direct Bilirubin AST ALT Alkaline Phosphatase Lactate Dehydrogenase Troponin T C-Reactive Protein Total Protein Albumin Prealbumin Triglycerides Cholesterol LDL Cholesterol Direct HDL Cholesterol 25-OH Vitamin D Total PTH Intact Urine pH Urine WBC (Auto) Urine Creatinine Urine Total Protein Fluid Total Protein Vancomycin Trough Rheumatoid Factor Complement C4 Miscellaneous Test Crossmatch 11/26/16 11/27/16 11/27/16 17:14 04:50 06:02 WBC RBC Hgb Hct MCV MCH MCHC RDW Plt Count Lymph % (Auto) [place] % (Auto) Lymph # [place] # Baso # Seg Neutrophils % Seg Neuts % (Manual) Lymphocytes % (Manual) Monocytes % (Manual) Eosinophils % (Manual) Basophils % (Manual) Nucleated RBC % Seg Neutrophils # Seg Neutrophils # Man Lymphocytes # (Manual) Monocytes # (Manual) Eosinophils # (Manual) Basophils # (Manual) PT INR Fibrinogen dRVVT Confirm Interp Factor V Activity POC ABG pH POC ABG pCO2 POC ABG pO2 ABG pO2 75.2 L ABG HCO3 26.4 H ABG Base Excess ABG Hemoglobin 7.6 L Oxyhemoglobin 94.8 L Sodium Potassium Chloride Carbon Dioxide BUN 49 H Creatinine 2.3 H Glucose POC Glucose 115 H Lactic Acid Calcium Ionized Calcium Phosphorus 1.50 L Magnesium Direct Bilirubin AST ALT Alkaline Phosphatase Lactate Dehydrogenase Troponin T C-Reactive Protein Total Protein Albumin Prealbumin Triglycerides Cholesterol LDL Cholesterol Direct HDL Cholesterol 25-OH Vitamin D Total PTH Intact Urine pH Urine WBC (Auto) Urine Creatinine Urine Total Protein Fluid Total Protein Vancomycin Trough Rheumatoid Factor Complement C4 Miscellaneous Test Crossmatch 11/27/16 11/27/16 11/27/16 06:02 11:25 17:25 WBC 11.6 H RBC 2.75 L Hgb 7.6 L Hct 23.4 L MCV MCH MCHC RDW 16.5 H Plt Count Lymph % (Auto) [place] % (Auto) Lymph # [place] # Baso # Seg Neutrophils % Seg Neuts % (Manual) Lymphocytes % (Manual) Monocytes % (Manual) Eosinophils % (Manual) Basophils % (Manual) Nucleated RBC % Seg Neutrophils # Seg Neutrophils # Man Lymphocytes # (Manual) Monocytes # (Manual) Eosinophils # (Manual) Basophils # (Manual) PT INR Fibrinogen dRVVT Confirm Interp Factor V Activity POC ABG pH POC ABG pCO2 POC ABG pO2 ABG pO2 ABG HCO3 ABG Base Excess ABG Hemoglobin Oxyhemoglobin Sodium Potassium Chloride Carbon Dioxide BUN Creatinine Glucose POC Glucose 114 H 126 H Lactic Acid Calcium Ionized Calcium Phosphorus Magnesium Direct Bilirubin AST ALT Alkaline Phosphatase Lactate Dehydrogenase Troponin T C-Reactive Protein Total Protein Albumin Prealbumin Triglycerides Cholesterol LDL Cholesterol Direct HDL Cholesterol 25-OH Vitamin D Total PTH Intact Urine pH Urine WBC (Auto) Urine Creatinine Urine Total Protein Fluid Total Protein Vancomycin Trough Rheumatoid Factor Complement C4 Miscellaneous Test Crossmatch 11/28/16 11/28/16 11/28/16 04:45 05:33 05:44 WBC RBC Hgb Hct MCV MCH MCHC RDW Plt Count Lymph % (Auto) [place] % (Auto) Lymph # [place] # Baso # Seg Neutrophils % Seg Neuts % (Manual) Lymphocytes % (Manual) Monocytes % (Manual) Eosinophils % (Manual) Basophils % (Manual) Nucleated RBC % Seg Neutrophils # Seg Neutrophils # Man Lymphocytes # (Manual) Monocytes # (Manual) Eosinophils # (Manual) Basophils # (Manual) PT INR Fibrinogen dRVVT Confirm Interp Factor V Activity POC ABG pH POC ABG pCO2 POC ABG pO2 ABG pO2 99.3 H ABG HCO3 ABG Base Excess ABG Hemoglobin 8.3 L Oxyhemoglobin Sodium Potassium Chloride Carbon Dioxide BUN 63 H Creatinine 2.4 H Glucose 102 H POC Glucose 108 H Lactic Acid Calcium Ionized Calcium Phosphorus 1.80 L Magnesium Direct Bilirubin AST ALT Alkaline Phosphatase Lactate Dehydrogenase Troponin T C-Reactive Protein Total Protein Albumin Prealbumin Triglycerides Cholesterol LDL Cholesterol Direct HDL Cholesterol 25-OH Vitamin D Total PTH Intact Urine pH Urine WBC (Auto) Urine Creatinine Urine Total Protein Fluid Total Protein Vancomycin Trough Rheumatoid Factor Complement C4 Miscellaneous Test Crossmatch 11/28/16 11/28/16 11/28/16 12:31 16:09 23:46 WBC RBC Hgb Hct MCV MCH MCHC RDW Plt Count Lymph % (Auto) [place] % (Auto) Lymph # [place] # Baso # Seg Neutrophils % Seg Neuts % (Manual) Lymphocytes % (Manual) Monocytes % (Manual) Eosinophils % (Manual) Basophils % (Manual) Nucleated RBC % Seg Neutrophils # Seg Neutrophils # Man Lymphocytes # (Manual) Monocytes # (Manual) Eosinophils # (Manual) Basophils # (Manual) PT INR Fibrinogen dRVVT Confirm Interp Factor V Activity POC ABG pH POC ABG pCO2 POC ABG pO2 ABG pO2 ABG HCO3 ABG Base Excess ABG Hemoglobin Oxyhemoglobin Sodium Potassium Chloride Carbon Dioxide BUN Creatinine Glucose POC Glucose 126 H 111 H 119 H Lactic Acid Calcium Ionized Calcium Phosphorus Magnesium Direct Bilirubin AST ALT Alkaline Phosphatase Lactate Dehydrogenase Troponin T C-Reactive Protein Total Protein Albumin Prealbumin Triglycerides Cholesterol LDL Cholesterol Direct HDL Cholesterol 25-OH Vitamin D Total PTH Intact Urine pH Urine WBC (Auto) Urine Creatinine Urine Total Protein Fluid Total Protein Vancomycin Trough Rheumatoid Factor Complement C4 Miscellaneous Test Crossmatch 11/29/16 11/29/16 11/29/16 03:33 04:52 05:10 WBC RBC Hgb Hct MCV MCH MCHC RDW Plt Count Lymph % (Auto) [place] % (Auto) Lymph # [place] # Baso # Seg Neutrophils % Seg Neuts % (Manual) Lymphocytes % (Manual) Monocytes % (Manual) Eosinophils % (Manual) Basophils % (Manual) Nucleated RBC % Seg Neutrophils # Seg Neutrophils # Man Lymphocytes # (Manual) Monocytes # (Manual) Eosinophils # (Manual) Basophils # (Manual) PT INR Fibrinogen dRVVT Confirm Interp Factor V Activity POC ABG pH POC ABG pCO2 POC ABG pO2 ABG pO2 ABG HCO3 ABG Base Excess ABG Hemoglobin 7.0 L Oxyhemoglobin 94.9 L Sodium Potassium Chloride Carbon Dioxide BUN 73 H Creatinine 2.7 H Glucose POC Glucose 108 H Lactic Acid Calcium Ionized Calcium Phosphorus Magnesium Direct Bilirubin AST ALT Alkaline Phosphatase Lactate Dehydrogenase Troponin T C-Reactive Protein Total Protein Albumin Prealbumin Triglycerides Cholesterol LDL Cholesterol Direct HDL Cholesterol 25-OH Vitamin D Total PTH Intact Urine pH Urine WBC (Auto) Urine Creatinine Urine Total Protein Fluid Total Protein Vancomycin Trough Rheumatoid Factor Complement C4 Miscellaneous Test Crossmatch 11/29/16 11/29/16 11/29/16 12:16 18:05 23:46 WBC RBC Hgb Hct MCV MCH MCHC RDW Plt Count Lymph % (Auto) [place] % (Auto) Lymph # [place] # Baso # Seg Neutrophils % Seg Neuts % (Manual) Lymphocytes % (Manual) Monocytes % (Manual) Eosinophils % (Manual) Basophils % (Manual) Nucleated RBC % Seg Neutrophils # Seg Neutrophils # Man Lymphocytes # (Manual) Monocytes # (Manual) Eosinophils # (Manual) Basophils # (Manual) PT INR Fibrinogen dRVVT Confirm Interp Factor V Activity POC ABG pH POC ABG pCO2 POC ABG pO2 ABG pO2 ABG HCO3 ABG Base Excess ABG Hemoglobin Oxyhemoglobin Sodium Potassium Chloride Carbon Dioxide BUN Creatinine Glucose POC Glucose 133 H 146 H 141 H Lactic Acid Calcium Ionized Calcium Phosphorus Magnesium Direct Bilirubin AST ALT Alkaline Phosphatase Lactate Dehydrogenase Troponin T C-Reactive Protein Total Protein Albumin Prealbumin Triglycerides Cholesterol LDL Cholesterol Direct HDL Cholesterol 25-OH Vitamin D Total PTH Intact Urine pH Urine WBC (Auto) Urine Creatinine Urine Total Protein Fluid Total Protein Vancomycin Trough Rheumatoid Factor Complement C4 Miscellaneous Test Crossmatch 11/30/16 11/30/16 11/30/16 04:17 04:17 04:32 WBC 12.0 H RBC 2.80 L Hgb 7.8 L Hct 23.6 L MCV MCH MCHC RDW 16.6 H Plt Count Lymph % (Auto) [place] % (Auto) 11.3 H Lymph # [place] # 1.4 H Baso # Seg Neutrophils % Seg Neuts % (Manual) Lymphocytes % (Manual) Monocytes % (Manual) Eosinophils % (Manual) Basophils % (Manual) Nucleated RBC % Seg Neutrophils # 8.2 H Seg Neutrophils # Man Lymphocytes # (Manual) Monocytes # (Manual) Eosinophils # (Manual) Basophils # (Manual) PT INR Fibrinogen dRVVT Confirm Interp Factor V Activity POC ABG pH POC ABG pCO2 POC ABG pO2 ABG pO2 ABG HCO3 ABG Base Excess ABG Hemoglobin Oxyhemoglobin Sodium 169 H* D Potassium 5.1 H Chloride 121.5 H Carbon Dioxide BUN 34 H Creatinine 1.3 H D Glucose 133 H POC Glucose 131 H Lactic Acid Calcium 10.3 H Ionized Calcium Phosphorus Magnesium Direct Bilirubin AST ALT Alkaline Phosphatase Lactate Dehydrogenase Troponin T C-Reactive Protein Total Protein Albumin Prealbumin Triglycerides Cholesterol LDL Cholesterol Direct HDL Cholesterol 25-OH Vitamin D Total PTH Intact Urine pH Urine WBC (Auto) Urine Creatinine Urine Total Protein Fluid Total Protein Vancomycin Trough Rheumatoid Factor Complement C4 Miscellaneous Test Crossmatch 11/30/16 11/30/16 11/30/16 05:45 11:10 17:26 WBC RBC Hgb Hct MCV MCH MCHC RDW Plt Count Lymph % (Auto) [place] % (Auto) Lymph # [place] # Baso # Seg Neutrophils % Seg Neuts % (Manual) Lymphocytes % (Manual) Monocytes % (Manual) Eosinophils % (Manual) Basophils % (Manual) Nucleated RBC % Seg Neutrophils # Seg Neutrophils # Man Lymphocytes # (Manual) Monocytes # (Manual) Eosinophils # (Manual) Basophils # (Manual) PT INR Fibrinogen dRVVT Confirm Interp Factor V Activity POC ABG pH POC ABG pCO2 POC ABG pO2 ABG pO2 ABG HCO3 ABG Base Excess ABG Hemoglobin Oxyhemoglobin Sodium Potassium Chloride Carbon Dioxide BUN 45 H Creatinine 1.6 H Glucose 131 H POC Glucose 146 H 134 H Lactic Acid Calcium Ionized Calcium Phosphorus Magnesium Direct Bilirubin AST ALT Alkaline Phosphatase Lactate Dehydrogenase Troponin T C-Reactive Protein Total Protein Albumin Prealbumin Triglycerides Cholesterol LDL Cholesterol Direct HDL Cholesterol 25-OH Vitamin D Total PTH Intact Urine pH Urine WBC (Auto) Urine Creatinine Urine Total Protein Fluid Total Protein Vancomycin Trough Rheumatoid Factor Complement C4 Miscellaneous Test Crossmatch 11/30/16 12/01/16 12/01/16 23:35 00:06 03:35 WBC RBC Hgb Hct MCV MCH MCHC RDW Plt Count Lymph % (Auto) [place] % (Auto) Lymph # [place] # Baso # Seg Neutrophils % Seg Neuts % (Manual) Lymphocytes % (Manual) Monocytes % (Manual) Eosinophils % (Manual) Basophils % (Manual) Nucleated RBC % Seg Neutrophils # Seg Neutrophils # Man Lymphocytes # (Manual) Monocytes # (Manual) Eosinophils # (Manual) Basophils # (Manual) PT INR Fibrinogen dRVVT Confirm Interp Factor V Activity POC ABG pH POC ABG pCO2 POC ABG pO2 ABG pO2 ABG HCO3 ABG Base Excess ABG Hemoglobin 6.9 L Oxyhemoglobin Sodium Potassium Chloride Carbon Dioxide BUN 58 H Creatinine 1.8 H Glucose 146 H POC Glucose 151 H Lactic Acid Calcium Ionized Calcium Phosphorus Magnesium Direct Bilirubin AST ALT Alkaline Phosphatase Lactate Dehydrogenase Troponin T C-Reactive Protein Total Protein Albumin Prealbumin Triglycerides Cholesterol LDL Cholesterol Direct HDL Cholesterol 25-OH Vitamin D Total PTH Intact Urine pH Urine WBC (Auto) Urine Creatinine Urine Total Protein Fluid Total Protein Vancomycin Trough Rheumatoid Factor Complement C4 Miscellaneous Test Crossmatch 12/01/16 12/01/16 12/01/16 03:35 05:47 11:52 WBC 12.3 H RBC 2.82 L Hgb 7.8 L Hct 23.7 L MCV MCH MCHC RDW 16.7 H Plt Count Lymph % (Auto) [place] % (Auto) 9.8 H Lymph # [place] # 1.2 H Baso # Seg Neutrophils % Seg Neuts % (Manual) Lymphocytes % (Manual) Monocytes % (Manual) Eosinophils % (Manual) Basophils % (Manual) Nucleated RBC % Seg Neutrophils # 8.4 H Seg Neutrophils # Man Lymphocytes # (Manual) Monocytes # (Manual) Eosinophils # (Manual) Basophils # (Manual) PT INR Fibrinogen dRVVT Confirm Interp Factor V Activity POC ABG pH POC ABG pCO2 POC ABG pO2 ABG pO2 ABG HCO3 ABG Base Excess ABG Hemoglobin Oxyhemoglobin Sodium Potassium Chloride Carbon Dioxide BUN Creatinine Glucose POC Glucose 152 H 152 H Lactic Acid Calcium Ionized Calcium Phosphorus Magnesium Direct Bilirubin AST ALT Alkaline Phosphatase Lactate Dehydrogenase Troponin T C-Reactive Protein Total Protein Albumin Prealbumin Triglycerides Cholesterol LDL Cholesterol Direct HDL Cholesterol 25-OH Vitamin D Total PTH Intact Urine pH Urine WBC (Auto) Urine Creatinine Urine Total Protein Fluid Total Protein Vancomycin Trough Rheumatoid Factor Complement C4 Miscellaneous Test Crossmatch 12/01/16 12/01/16 12/02/16 17:40 23:41 05:00 WBC RBC Hgb Hct MCV MCH MCHC RDW Plt Count Lymph % (Auto) [place] % (Auto) Lymph # [place] # Baso # Seg Neutrophils % Seg Neuts % (Manual) Lymphocytes % (Manual) Monocytes % (Manual) Eosinophils % (Manual) Basophils % (Manual) Nucleated RBC % Seg Neutrophils # Seg Neutrophils # Man Lymphocytes # (Manual) Monocytes # (Manual) Eosinophils # (Manual) Basophils # (Manual) PT INR Fibrinogen dRVVT Confirm Interp Factor V Activity POC ABG pH POC ABG pCO2 POC ABG pO2 ABG pO2 ABG HCO3 ABG Base Excess ABG Hemoglobin Oxyhemoglobin Sodium Potassium Chloride Carbon Dioxide BUN 45 H Creatinine Glucose 115 H POC Glucose 140 H 144 H Lactic Acid Calcium Ionized Calcium Phosphorus Magnesium Direct Bilirubin AST ALT Alkaline Phosphatase Lactate Dehydrogenase Troponin T C-Reactive Protein Total Protein Albumin Prealbumin Triglycerides Cholesterol LDL Cholesterol Direct HDL Cholesterol 25-OH Vitamin D Total PTH Intact Urine pH Urine WBC (Auto) Urine Creatinine Urine Total Protein Fluid Total Protein Vancomycin Trough Rheumatoid Factor Complement C4 Miscellaneous Test Crossmatch 12/02/16 12/02/16 12/02/16 05:31 11:20 17:38 WBC RBC Hgb Hct MCV MCH MCHC RDW Plt Count Lymph % (Auto) [place] % (Auto) Lymph # [place] # Baso # Seg Neutrophils % Seg Neuts % (Manual) Lymphocytes % (Manual) Monocytes % (Manual) Eosinophils % (Manual) Basophils % (Manual) Nucleated RBC % Seg Neutrophils # Seg Neutrophils # Man Lymphocytes # (Manual) Monocytes # (Manual) Eosinophils # (Manual) Basophils # (Manual) PT INR Fibrinogen dRVVT Confirm Interp Factor V Activity POC ABG pH POC ABG pCO2 POC ABG pO2 ABG pO2 ABG HCO3 ABG Base Excess ABG Hemoglobin Oxyhemoglobin Sodium Potassium Chloride Carbon Dioxide BUN Creatinine Glucose POC Glucose 136 H 177 H 139 H Lactic Acid Calcium Ionized Calcium Phosphorus Magnesium Direct Bilirubin AST ALT Alkaline Phosphatase Lactate Dehydrogenase Troponin T C-Reactive Protein Total Protein Albumin Prealbumin Triglycerides Cholesterol LDL Cholesterol Direct HDL Cholesterol 25-OH Vitamin D Total PTH Intact Urine pH Urine WBC (Auto) Urine Creatinine Urine Total Protein Fluid Total Protein Vancomycin Trough Rheumatoid Factor Complement C4 Miscellaneous Test Crossmatch 12/02/16 12/03/16 12/03/16 23:43 04:00 04:00 WBC 20.4 H RBC 2.74 L Hgb 7.4 L Hct 23.6 L MCV MCH 27 L MCHC RDW 17.1 H Plt Count Lymph % (Auto) [place] % (Auto) Lymph # [place] # Baso # Seg Neutrophils % Seg Neuts % (Manual) 31.0 L Lymphocytes % (Manual) Monocytes % (Manual) Eosinophils % (Manual) Basophils % (Manual) Nucleated RBC % Seg Neutrophils # Seg Neutrophils # Man Lymphocytes # (Manual) Monocytes # (Manual) Eosinophils # (Manual) Basophils # (Manual) PT INR Fibrinogen dRVVT Confirm Interp Factor V Activity POC ABG pH POC ABG pCO2 POC ABG pO2 ABG pO2 ABG HCO3 ABG Base Excess ABG Hemoglobin Oxyhemoglobin Sodium Potassium Chloride Carbon Dioxide BUN 61 H Creatinine 1.6 H Glucose 119 H POC Glucose 158 H Lactic Acid Calcium Ionized Calcium Phosphorus Magnesium Direct Bilirubin AST ALT Alkaline Phosphatase Lactate Dehydrogenase Troponin T C-Reactive Protein Total Protein Albumin Prealbumin Triglycerides Cholesterol LDL Cholesterol Direct HDL Cholesterol 25-OH Vitamin D Total PTH Intact Urine pH Urine WBC (Auto) Urine Creatinine Urine Total Protein Fluid Total Protein Vancomycin Trough Rheumatoid Factor Complement C4 Miscellaneous Test Crossmatch 12/03/16 12/03/16 12/03/16 05:02 12:11 18:16 WBC RBC Hgb Hct MCV MCH MCHC RDW Plt Count Lymph % (Auto) [place] % (Auto) Lymph # [place] # Baso # Seg Neutrophils % Seg Neuts % (Manual) Lymphocytes % (Manual) Monocytes % (Manual) Eosinophils % (Manual) Basophils % (Manual) Nucleated RBC % Seg Neutrophils # Seg Neutrophils # Man Lymphocytes # (Manual) Monocytes # (Manual) Eosinophils # (Manual) Basophils # (Manual) PT INR Fibrinogen dRVVT Confirm Interp Factor V Activity POC ABG pH POC ABG pCO2 POC ABG pO2 ABG pO2 ABG HCO3 ABG Base Excess ABG Hemoglobin Oxyhemoglobin Sodium Potassium Chloride Carbon Dioxide BUN Creatinine Glucose POC Glucose 146 H 157 H 124 H Lactic Acid Calcium Ionized Calcium Phosphorus Magnesium Direct Bilirubin AST ALT Alkaline Phosphatase Lactate Dehydrogenase Troponin T C-Reactive Protein Total Protein Albumin Prealbumin Triglycerides Cholesterol LDL Cholesterol Direct HDL Cholesterol 25-OH Vitamin D Total PTH Intact Urine pH Urine WBC (Auto) Urine Creatinine Urine Total Protein Fluid Total Protein Vancomycin Trough Rheumatoid Factor Complement C4 Miscellaneous Test Crossmatch 12/03/16 12/04/16 12/04/16 23:41 04:00 04:45 WBC RBC Hgb Hct MCV MCH MCHC RDW Plt Count Lymph % (Auto) [place] % (Auto) Lymph # [place] # Baso # Seg Neutrophils % Seg Neuts % (Manual) Lymphocytes % (Manual) Monocytes % (Manual) Eosinophils % (Manual) Basophils % (Manual) Nucleated RBC % Seg Neutrophils # Seg Neutrophils # Man Lymphocytes # (Manual) Monocytes # (Manual) Eosinophils # (Manual) Basophils # (Manual) PT INR Fibrinogen dRVVT Confirm Interp Factor V Activity POC ABG pH POC ABG pCO2 POC ABG pO2 ABG pO2 ABG HCO3 ABG Base Excess ABG Hemoglobin Oxyhemoglobin Sodium Potassium Chloride Carbon Dioxide BUN 76 H Creatinine 1.6 H Glucose POC Glucose 130 H 136 H Lactic Acid Calcium Ionized Calcium Phosphorus Magnesium Direct Bilirubin AST ALT Alkaline Phosphatase 155 H Lactate Dehydrogenase Troponin T C-Reactive Protein Total Protein 5.5 L Albumin 1.5 L Prealbumin Triglycerides Cholesterol LDL Cholesterol Direct HDL Cholesterol 25-OH Vitamin D Total PTH Intact Urine pH Urine WBC (Auto) Urine Creatinine Urine Total Protein Fluid Total Protein Vancomycin Trough Rheumatoid Factor Complement C4 Miscellaneous Test Crossmatch 12/04/16 12/04/16 12/05/16 12:08 17:23 00:10 WBC RBC Hgb Hct MCV MCH MCHC RDW Plt Count Lymph % (Auto) [place] % (Auto) Lymph # [place] # Baso # Seg Neutrophils % Seg Neuts % (Manual) Lymphocytes % (Manual) Monocytes % (Manual) Eosinophils % (Manual) Basophils % (Manual) Nucleated RBC % Seg Neutrophils # Seg Neutrophils # Man Lymphocytes # (Manual) Monocytes # (Manual) Eosinophils # (Manual) Basophils # (Manual) PT INR Fibrinogen dRVVT Confirm Interp Factor V Activity POC ABG pH POC ABG pCO2 POC ABG pO2 ABG pO2 ABG HCO3 ABG Base Excess ABG Hemoglobin Oxyhemoglobin Sodium Potassium Chloride Carbon Dioxide BUN Creatinine Glucose POC Glucose 114 H 129 H 124 H Lactic Acid Calcium Ionized Calcium Phosphorus Magnesium Direct Bilirubin AST ALT Alkaline Phosphatase Lactate Dehydrogenase Troponin T C-Reactive Protein Total Protein Albumin Prealbumin Triglycerides Cholesterol LDL Cholesterol Direct HDL Cholesterol 25-OH Vitamin D Total PTH Intact Urine pH Urine WBC (Auto) Urine Creatinine Urine Total Protein Fluid Total Protein Vancomycin Trough Rheumatoid Factor Complement C4 Miscellaneous Test Crossmatch 12/05/16 12/05/16 12/05/16 05:00 05:00 05:18 WBC RBC Hgb Hct MCV MCH MCHC RDW Plt Count Lymph % (Auto) [place] % (Auto) Lymph # [place] # Baso # Seg Neutrophils % Seg Neuts % (Manual) Lymphocytes % (Manual) Monocytes % (Manual) Eosinophils % (Manual) Basophils % (Manual) Nucleated RBC % Seg Neutrophils # Seg Neutrophils # Man Lymphocytes # (Manual) Monocytes # (Manual) Eosinophils # (Manual) Basophils # (Manual) PT INR Fibrinogen dRVVT Confirm Interp Factor V Activity POC ABG pH POC ABG pCO2 POC ABG pO2 ABG pO2 ABG HCO3 ABG Base Excess ABG Hemoglobin Oxyhemoglobin Sodium Potassium Chloride Carbon Dioxide 21 L BUN 85 H Creatinine 1.9 H Glucose 131 H POC Glucose 154 H Lactic Acid Calcium Ionized Calcium Phosphorus Magnesium Direct Bilirubin AST ALT Alkaline Phosphatase Lactate Dehydrogenase Troponin T C-Reactive Protein 19.30 H Total Protein Albumin Prealbumin Triglycerides Cholesterol LDL Cholesterol Direct HDL Cholesterol 25-OH Vitamin D Total PTH Intact Urine pH Urine WBC (Auto) Urine Creatinine Urine Total Protein Fluid Total Protein Vancomycin Trough Rheumatoid Factor Complement C4 Miscellaneous Test Crossmatch 12/05/16 12/05/16 12/05/16 11:43 17:46 23:25 WBC RBC Hgb Hct MCV MCH MCHC RDW Plt Count Lymph % (Auto) [place] % (Auto) Lymph # [place] # Baso # Seg Neutrophils % Seg Neuts % (Manual) Lymphocytes % (Manual) Monocytes % (Manual) Eosinophils % (Manual) Basophils % (Manual) Nucleated RBC % Seg Neutrophils # Seg Neutrophils # Man Lymphocytes # (Manual) Monocytes # (Manual) Eosinophils # (Manual) Basophils # (Manual) PT INR Fibrinogen dRVVT Confirm Interp Factor V Activity POC ABG pH POC ABG pCO2 POC ABG pO2 ABG pO2 ABG HCO3 ABG Base Excess ABG Hemoglobin Oxyhemoglobin Sodium Potassium Chloride Carbon Dioxide BUN Creatinine Glucose POC Glucose 117 H 113 H 111 H Lactic Acid Calcium Ionized Calcium Phosphorus Magnesium Direct Bilirubin AST ALT Alkaline Phosphatase Lactate Dehydrogenase Troponin T C-Reactive Protein Total Protein Albumin Prealbumin Triglycerides Cholesterol LDL Cholesterol Direct HDL Cholesterol 25-OH Vitamin D Total PTH Intact Urine pH Urine WBC (Auto) Urine Creatinine Urine Total Protein Fluid Total Protein Vancomycin Trough Rheumatoid Factor Complement C4 Miscellaneous Test Crossmatch 12/05/16 12/06/16 12/06/16 Unknown 04:58 06:00 WBC RBC Hgb Hct MCV MCH MCHC RDW Plt Count Lymph % (Auto) [place] % (Auto) Lymph # [place] # Baso # Seg Neutrophils % Seg Neuts % (Manual) Lymphocytes % (Manual) Monocytes % (Manual) Eosinophils % (Manual) Basophils % (Manual) Nucleated RBC % Seg Neutrophils # Seg Neutrophils # Man Lymphocytes # (Manual) Monocytes # (Manual) Eosinophils # (Manual) Basophils # (Manual) PT INR Fibrinogen dRVVT Confirm Interp Factor V Activity POC ABG pH POC ABG pCO2 POC ABG pO2 ABG pO2 75.2 L ABG HCO3 ABG Base Excess -3.4 L ABG Hemoglobin 7.4 L Oxyhemoglobin 94.5 L Sodium Potassium Chloride Carbon Dioxide 20 L BUN 99 H Creatinine 2.1 H Glucose 126 H POC Glucose 145 H Lactic Acid Calcium Ionized Calcium Phosphorus 4.80 H Magnesium Direct Bilirubin AST ALT Alkaline Phosphatase Lactate Dehydrogenase Troponin T C-Reactive Protein Total Protein Albumin Prealbumin Triglycerides Cholesterol LDL Cholesterol Direct HDL Cholesterol 25-OH Vitamin D Total PTH Intact Urine pH Urine WBC (Auto) Urine Creatinine Urine Total Protein Fluid Total Protein Vancomycin Trough Rheumatoid Factor Complement C4 Miscellaneous Test Crossmatch 12/06/16 12/06/16 12/06/16 06:46 11:54 17:55 WBC RBC Hgb 8.3 L Hct 26.4 L MCV MCH MCHC RDW Plt Count Lymph % (Auto) [place] % (Auto) Lymph # [place] # Baso # Seg Neutrophils % Seg Neuts % (Manual) Lymphocytes % (Manual) Monocytes % (Manual) Eosinophils % (Manual) Basophils % (Manual) Nucleated RBC % Seg Neutrophils # Seg Neutrophils # Man Lymphocytes # (Manual) Monocytes # (Manual) Eosinophils # (Manual) Basophils # (Manual) PT INR Fibrinogen dRVVT Confirm Interp Factor V Activity POC ABG pH POC ABG pCO2 POC ABG pO2 ABG pO2 ABG HCO3 ABG Base Excess ABG Hemoglobin Oxyhemoglobin Sodium Potassium Chloride Carbon Dioxide BUN Creatinine Glucose POC Glucose 126 H 157 H Lactic Acid Calcium Ionized Calcium Phosphorus Magnesium Direct Bilirubin AST ALT Alkaline Phosphatase Lactate Dehydrogenase Troponin T C-Reactive Protein Total Protein Albumin Prealbumin Triglycerides Cholesterol LDL Cholesterol Direct HDL Cholesterol 25-OH Vitamin D Total PTH Intact Urine pH Urine WBC (Auto) Urine Creatinine Urine Total Protein Fluid Total Protein Vancomycin Trough Rheumatoid Factor Complement C4 Miscellaneous Test Crossmatch 12/06/16 12/07/16 12/07/16 23:59 05:34 06:30 WBC RBC Hgb Hct MCV MCH MCHC RDW Plt Count Lymph % (Auto) [place] % (Auto) Lymph # [place] # Baso # Seg Neutrophils % Seg Neuts % (Manual) Lymphocytes % (Manual) Monocytes % (Manual) Eosinophils % (Manual) Basophils % (Manual) Nucleated RBC % Seg Neutrophils # Seg Neutrophils # Man Lymphocytes # (Manual) Monocytes # (Manual) Eosinophils # (Manual) Basophils # (Manual) PT INR Fibrinogen dRVVT Confirm Interp Factor V Activity POC ABG pH POC ABG pCO2 POC ABG pO2 ABG pO2 ABG HCO3 ABG Base Excess ABG Hemoglobin Oxyhemoglobin Sodium Potassium Chloride Carbon Dioxide BUN 67 H Creatinine 1.4 H Glucose 126 H POC Glucose 129 H 129 H Lactic Acid Calcium Ionized Calcium Phosphorus Magnesium Direct Bilirubin AST ALT Alkaline Phosphatase Lactate Dehydrogenase Troponin T C-Reactive Protein Total Protein Albumin Prealbumin Triglycerides Cholesterol LDL Cholesterol Direct HDL Cholesterol 25-OH Vitamin D Total PTH Intact Urine pH Urine WBC (Auto) Urine Creatinine Urine Total Protein Fluid Total Protein Vancomycin Trough Rheumatoid Factor Complement C4 Miscellaneous Test Crossmatch 12/07/16 12/07/16 12/07/16 06:30 08:00 09:45 WBC 18.8 H RBC 2.52 L Hgb 6.9 L 6.8 L Hct 21.2 L 21.1 L MCV MCH 27 L MCHC RDW 18.0 H Plt Count Lymph % (Auto) [place] % (Auto) 9.9 H Lymph # [place] # 1.9 H Baso # Seg Neutrophils % 71.8 H Seg Neuts % (Manual) Lymphocytes % (Manual) Monocytes % (Manual) Eosinophils % (Manual) Basophils % (Manual) Nucleated RBC % Seg Neutrophils # 13.5 H Seg Neutrophils # Man Lymphocytes # (Manual) Monocytes # (Manual) Eosinophils # (Manual) Basophils # (Manual) PT INR Fibrinogen dRVVT Confirm Interp Factor V Activity POC ABG pH POC ABG pCO2 POC ABG pO2 ABG pO2 ABG HCO3 ABG Base Excess ABG Hemoglobin Oxyhemoglobin Sodium Potassium Chloride Carbon Dioxide BUN Creatinine Glucose POC Glucose Lactic Acid Calcium Ionized Calcium Phosphorus Magnesium Direct Bilirubin AST ALT Alkaline Phosphatase Lactate Dehydrogenase Troponin T C-Reactive Protein Total Protein Albumin Prealbumin Triglycerides Cholesterol LDL Cholesterol Direct HDL Cholesterol 25-OH Vitamin D Total PTH Intact Urine pH Urine WBC (Auto) Urine Creatinine Urine Total Protein Fluid Total Protein Vancomycin Trough Rheumatoid Factor Complement C4 Miscellaneous Test Crossmatch See Detail 12/07/16 12/07/16 12/07/16 11:44 18:19 23:59 WBC RBC Hgb Hct MCV MCH MCHC RDW Plt Count Lymph % (Auto) [place] % (Auto) Lymph # [place] # Baso # Seg Neutrophils % Seg Neuts % (Manual) Lymphocytes % (Manual) Monocytes % (Manual) Eosinophils % (Manual) Basophils % (Manual) Nucleated RBC % Seg Neutrophils # Seg Neutrophils # Man Lymphocytes # (Manual) Monocytes # (Manual) Eosinophils # (Manual) Basophils # (Manual) PT INR Fibrinogen dRVVT Confirm Interp Factor V Activity POC ABG pH POC ABG pCO2 POC ABG pO2 ABG pO2 ABG HCO3 ABG Base Excess ABG Hemoglobin Oxyhemoglobin Sodium Potassium Chloride Carbon Dioxide BUN Creatinine Glucose POC Glucose 137 H 138 H 133 H Lactic Acid Calcium Ionized Calcium Phosphorus Magnesium Direct Bilirubin AST ALT Alkaline Phosphatase Lactate Dehydrogenase Troponin T C-Reactive Protein Total Protein Albumin Prealbumin Triglycerides Cholesterol LDL Cholesterol Direct HDL Cholesterol 25-OH Vitamin D Total PTH Intact Urine pH Urine WBC (Auto) Urine Creatinine Urine Total Protein Fluid Total Protein Vancomycin Trough Rheumatoid Factor Complement C4 Miscellaneous Test Crossmatch 12/08/16 12/08/16 12/08/16 05:25 05:30 05:30 WBC 23.8 H RBC 2.88 L Hgb 8.1 L Hct 24.3 L MCV MCH MCHC RDW 16.7 H Plt Count Lymph % (Auto) [place] % (Auto) Lymph # [place] # Baso # Seg Neutrophils % Seg Neuts % (Manual) 76.0 H Lymphocytes % (Manual) 9.0 L Monocytes % (Manual) 9.0 H Eosinophils % (Manual) Basophils % (Manual) Nucleated RBC % Seg Neutrophils # Seg Neutrophils # Man 18.1 H Lymphocytes # (Manual) Monocytes # (Manual) 2.1 H Eosinophils # (Manual) Basophils # (Manual) PT INR Fibrinogen dRVVT Confirm Interp Factor V Activity POC ABG pH POC ABG pCO2 POC ABG pO2 ABG pO2 ABG HCO3 ABG Base Excess ABG Hemoglobin Oxyhemoglobin Sodium Potassium Chloride Carbon Dioxide 21 L BUN 76 H Creatinine 1.6 H Glucose 133 H POC Glucose 177 H Lactic Acid Calcium Ionized Calcium Phosphorus Magnesium Direct Bilirubin AST ALT Alkaline Phosphatase Lactate Dehydrogenase Troponin T C-Reactive Protein Total Protein Albumin Prealbumin Triglycerides Cholesterol LDL Cholesterol Direct HDL Cholesterol 25-OH Vitamin D Total PTH Intact Urine pH Urine WBC (Auto) Urine Creatinine Urine Total Protein Fluid Total Protein Vancomycin Trough Rheumatoid Factor Complement C4 Miscellaneous Test Crossmatch 12/08/16 12/08/16 12/09/16 11:45 18:00 00:00 WBC RBC Hgb Hct MCV MCH MCHC RDW Plt Count Lymph % (Auto) [place] % (Auto) Lymph # [place] # Baso # Seg Neutrophils % Seg Neuts % (Manual) Lymphocytes % (Manual) Monocytes % (Manual) Eosinophils % (Manual) Basophils % (Manual) Nucleated RBC % Seg Neutrophils # Seg Neutrophils # Man Lymphocytes # (Manual) Monocytes # (Manual) Eosinophils # (Manual) Basophils # (Manual) PT INR Fibrinogen dRVVT Confirm Interp Factor V Activity POC ABG pH POC ABG pCO2 POC ABG pO2 ABG pO2 ABG HCO3 ABG Base Excess ABG Hemoglobin Oxyhemoglobin Sodium Potassium Chloride Carbon Dioxide BUN Creatinine Glucose POC Glucose 163 H 123 H 137 H Lactic Acid Calcium Ionized Calcium Phosphorus Magnesium Direct Bilirubin AST ALT Alkaline Phosphatase Lactate Dehydrogenase Troponin T C-Reactive Protein Total Protein Albumin Prealbumin Triglycerides Cholesterol LDL Cholesterol Direct HDL Cholesterol 25-OH Vitamin D Total PTH Intact Urine pH Urine WBC (Auto) Urine Creatinine Urine Total Protein Fluid Total Protein Vancomycin Trough Rheumatoid Factor Complement C4 Miscellaneous Test Crossmatch 12/09/16 12/09/16 12/09/16 05:34 06:00 06:00 WBC 15.5 H RBC 2.87 L Hgb 8.0 L Hct 24.2 L MCV MCH MCHC RDW 17.2 H Plt Count Lymph % (Auto) [place] % (Auto) 11.6 H Lymph # [place] # 1.8 H Baso # Seg Neutrophils % 70.8 H Seg Neuts % (Manual) Lymphocytes % (Manual) Monocytes % (Manual) Eosinophils % (Manual) Basophils % (Manual) Nucleated RBC % Seg Neutrophils # 11.0 H Seg Neutrophils # Man Lymphocytes # (Manual) Monocytes # (Manual) Eosinophils # (Manual) Basophils # (Manual) PT INR Fibrinogen dRVVT Confirm Interp Factor V Activity POC ABG pH POC ABG pCO2 POC ABG pO2 ABG pO2 ABG HCO3 ABG Base Excess ABG Hemoglobin Oxyhemoglobin Sodium Potassium Chloride Carbon Dioxide BUN 51 H Creatinine Glucose 117 H POC Glucose 136 H Lactic Acid Calcium Ionized Calcium Phosphorus Magnesium Direct Bilirubin AST ALT Alkaline Phosphatase Lactate Dehydrogenase Troponin T C-Reactive Protein Total Protein Albumin Prealbumin Triglycerides Cholesterol LDL Cholesterol Direct HDL Cholesterol 25-OH Vitamin D Total PTH Intact Urine pH Urine WBC (Auto) Urine Creatinine Urine Total Protein Fluid Total Protein Vancomycin Trough Rheumatoid Factor Complement C4 Miscellaneous Test Crossmatch 12/09/16 12/09/16 12/09/16 12:29 17:52 23:10 WBC RBC Hgb Hct MCV MCH MCHC RDW Plt Count Lymph % (Auto) [place] % (Auto) Lymph # [place] # Baso # Seg Neutrophils % Seg Neuts % (Manual) Lymphocytes % (Manual) Monocytes % (Manual) Eosinophils % (Manual) Basophils % (Manual) Nucleated RBC % Seg Neutrophils # Seg Neutrophils # Man Lymphocytes # (Manual) Monocytes # (Manual) Eosinophils # (Manual) Basophils # (Manual) PT INR Fibrinogen dRVVT Confirm Interp Factor V Activity POC ABG pH POC ABG pCO2 POC ABG pO2 ABG pO2 ABG HCO3 ABG Base Excess ABG Hemoglobin Oxyhemoglobin Sodium Potassium Chloride Carbon Dioxide BUN Creatinine Glucose POC Glucose 139 H 140 H 129 H Lactic Acid Calcium Ionized Calcium Phosphorus Magnesium Direct Bilirubin AST ALT Alkaline Phosphatase Lactate Dehydrogenase Troponin T C-Reactive Protein Total Protein Albumin Prealbumin Triglycerides Cholesterol LDL Cholesterol Direct HDL Cholesterol 25-OH Vitamin D Total PTH Intact Urine pH Urine WBC (Auto) Urine Creatinine Urine Total Protein Fluid Total Protein Vancomycin Trough Rheumatoid Factor Complement C4 Miscellaneous Test Crossmatch 12/10/16 12/10/16 12/10/16 05:00 05:00 06:54 WBC 15.7 H RBC 2.87 L Hgb 8.2 L Hct 24.4 L MCV MCH MCHC RDW 17.2 H Plt Count Lymph % (Auto) [place] % (Auto) 8.3 H Lymph # [place] # 1.3 H Baso # Seg Neutrophils % 72.8 H Seg Neuts % (Manual) Lymphocytes % (Manual) Monocytes % (Manual) Eosinophils % (Manual) Basophils % (Manual) Nucleated RBC % Seg Neutrophils # 11.4 H Seg Neutrophils # Man Lymphocytes # (Manual) Monocytes # (Manual) Eosinophils # (Manual) Basophils # (Manual) PT INR Fibrinogen dRVVT Confirm Interp Factor V Activity POC ABG pH POC ABG pCO2 POC ABG pO2 ABG pO2 ABG HCO3 ABG Base Excess ABG Hemoglobin Oxyhemoglobin Sodium Potassium Chloride Carbon Dioxide BUN 64 H Creatinine 1.4 H Glucose 134 H POC Glucose 154 H Lactic Acid Calcium Ionized Calcium Phosphorus Magnesium Direct Bilirubin AST ALT Alkaline Phosphatase Lactate Dehydrogenase Troponin T C-Reactive Protein Total Protein Albumin Prealbumin Triglycerides Cholesterol LDL Cholesterol Direct HDL Cholesterol 25-OH Vitamin D Total PTH Intact Urine pH Urine WBC (Auto) Urine Creatinine Urine Total Protein Fluid Total Protein Vancomycin Trough Rheumatoid Factor Complement C4 Miscellaneous Test Crossmatch 12/10/16 12/10/16 12/10/16 11:58 17:29 23:52 WBC RBC Hgb Hct MCV MCH MCHC RDW Plt Count Lymph % (Auto) [place] % (Auto) Lymph # [place] # Baso # Seg Neutrophils % Seg Neuts % (Manual) Lymphocytes % (Manual) Monocytes % (Manual) Eosinophils % (Manual) Basophils % (Manual) Nucleated RBC % Seg Neutrophils # Seg Neutrophils # Man Lymphocytes # (Manual) Monocytes # (Manual) Eosinophils # (Manual) Basophils # (Manual) PT INR Fibrinogen dRVVT Confirm Interp Factor V Activity POC ABG pH POC ABG pCO2 POC ABG pO2 ABG pO2 ABG HCO3 ABG Base Excess ABG Hemoglobin Oxyhemoglobin Sodium Potassium Chloride Carbon Dioxide BUN Creatinine Glucose POC Glucose 144 H 163 H 125 H Lactic Acid Calcium Ionized Calcium Phosphorus Magnesium Direct Bilirubin AST ALT Alkaline Phosphatase Lactate Dehydrogenase Troponin T C-Reactive Protein Total Protein Albumin Prealbumin Triglycerides Cholesterol LDL Cholesterol Direct HDL Cholesterol 25-OH Vitamin D Total PTH Intact Urine pH Urine WBC (Auto) Urine Creatinine Urine Total Protein Fluid Total Protein Vancomycin Trough Rheumatoid Factor Complement C4 Miscellaneous Test Crossmatch 12/11/16 12/11/16 12/11/16 05:38 06:30 06:30 WBC 14.4 H RBC 2.76 L Hgb 7.7 L Hct 23.4 L MCV MCH MCHC RDW 17.2 H Plt Count Lymph % (Auto) [place] % (Auto) 8.8 H Lymph # [place] # 1.3 H Baso # Seg Neutrophils % 72.5 H Seg Neuts % (Manual) Lymphocytes % (Manual) Monocytes % (Manual) Eosinophils % (Manual) Basophils % (Manual) Nucleated RBC % Seg Neutrophils # 10.5 H Seg Neutrophils # Man Lymphocytes # (Manual) Monocytes # (Manual) Eosinophils # (Manual) Basophils # (Manual) PT INR Fibrinogen dRVVT Confirm Interp Factor V Activity POC ABG pH POC ABG pCO2 POC ABG pO2 ABG pO2 ABG HCO3 ABG Base Excess ABG Hemoglobin Oxyhemoglobin Sodium Potassium Chloride Carbon Dioxide BUN 43 H Creatinine Glucose 124 H POC Glucose 141 H Lactic Acid Calcium 8.3 L Ionized Calcium Phosphorus Magnesium 1.60 L Direct Bilirubin AST ALT Alkaline Phosphatase Lactate Dehydrogenase Troponin T C-Reactive Protein Total Protein Albumin Prealbumin Triglycerides Cholesterol LDL Cholesterol Direct HDL Cholesterol 25-OH Vitamin D Total PTH Intact Urine pH Urine WBC (Auto) Urine Creatinine Urine Total Protein Fluid Total Protein Vancomycin Trough Rheumatoid Factor Complement C4 Miscellaneous Test Crossmatch 12/11/16 12/11/16 12/11/16 11:15 17:59 23:48 WBC RBC Hgb Hct MCV MCH MCHC RDW Plt Count Lymph % (Auto) [place] % (Auto) Lymph # [place] # Baso # Seg Neutrophils % Seg Neuts % (Manual) Lymphocytes % (Manual) Monocytes % (Manual) Eosinophils % (Manual) Basophils % (Manual) Nucleated RBC % Seg Neutrophils # Seg Neutrophils # Man Lymphocytes # (Manual) Monocytes # (Manual) Eosinophils # (Manual) Basophils # (Manual) PT INR Fibrinogen dRVVT Confirm Interp Factor V Activity POC ABG pH POC ABG pCO2 POC ABG pO2 ABG pO2 ABG HCO3 ABG Base Excess ABG Hemoglobin Oxyhemoglobin Sodium Potassium Chloride Carbon Dioxide BUN Creatinine Glucose POC Glucose 188 H 106 H 119 H Lactic Acid Calcium Ionized Calcium Phosphorus Magnesium Direct Bilirubin AST ALT Alkaline Phosphatase Lactate Dehydrogenase Troponin T C-Reactive Protein Total Protein Albumin Prealbumin Triglycerides Cholesterol LDL Cholesterol Direct HDL Cholesterol 25-OH Vitamin D Total PTH Intact Urine pH Urine WBC (Auto) Urine Creatinine Urine Total Protein Fluid Total Protein Vancomycin Trough Rheumatoid Factor Complement C4 Miscellaneous Test Crossmatch 12/12/16 12/12/16 12/12/16 05:00 06:01 12:20 WBC 16.7 H RBC 2.87 L Hgb 8.0 L Hct 24.2 L MCV MCH MCHC RDW 17.6 H Plt Count Lymph % (Auto) [place] % (Auto) Lymph # [place] # 1.2 H Baso # Seg Neutrophils % 75.3 H Seg Neuts % (Manual) Lymphocytes % (Manual) Monocytes % (Manual) Eosinophils % (Manual) Basophils % (Manual) Nucleated RBC % Seg Neutrophils # 12.6 H Seg Neutrophils # Man Lymphocytes # (Manual) Monocytes # (Manual) Eosinophils # (Manual) Basophils # (Manual) PT INR Fibrinogen dRVVT Confirm Interp Factor V Activity POC ABG pH POC ABG pCO2 POC ABG pO2 ABG pO2 ABG HCO3 ABG Base Excess ABG Hemoglobin Oxyhemoglobin Sodium Potassium Chloride Carbon Dioxide BUN Creatinine Glucose POC Glucose 134 H 149 H Lactic Acid Calcium Ionized Calcium Phosphorus Magnesium Direct Bilirubin AST ALT Alkaline Phosphatase Lactate Dehydrogenase Troponin T C-Reactive Protein Total Protein Albumin Prealbumin Triglycerides Cholesterol LDL Cholesterol Direct HDL Cholesterol 25-OH Vitamin D Total PTH Intact Urine pH Urine WBC (Auto) Urine Creatinine Urine Total Protein Fluid Total Protein Vancomycin Trough Rheumatoid Factor Complement C4 Miscellaneous Test Crossmatch 12/12/16 12/12/16 12/12/16 17:38 23:01 Unknown WBC RBC Hgb Hct MCV MCH MCHC RDW Plt Count Lymph % (Auto) [place] % (Auto) Lymph # [place] # Baso # Seg Neutrophils % Seg Neuts % (Manual) Lymphocytes % (Manual) Monocytes % (Manual) Eosinophils % (Manual) Basophils % (Manual) Nucleated RBC % Seg Neutrophils # Seg Neutrophils # Man Lymphocytes # (Manual) Monocytes # (Manual) Eosinophils # (Manual) Basophils # (Manual) PT INR Fibrinogen dRVVT Confirm Interp Factor V Activity POC ABG pH POC ABG pCO2 POC ABG pO2 ABG pO2 ABG HCO3 ABG Base Excess ABG Hemoglobin Oxyhemoglobin Sodium Potassium Chloride Carbon Dioxide BUN 60 H Creatinine 1.3 H Glucose 126 H POC Glucose 127 H 144 H Lactic Acid Calcium Ionized Calcium Phosphorus Magnesium Direct Bilirubin AST ALT Alkaline Phosphatase Lactate Dehydrogenase Troponin T C-Reactive Protein Total Protein Albumin Prealbumin Triglycerides Cholesterol LDL Cholesterol Direct HDL Cholesterol 25-OH Vitamin D Total PTH Intact Urine pH Urine WBC (Auto) Urine Creatinine Urine Total Protein Fluid Total Protein Vancomycin Trough Rheumatoid Factor Complement C4 Miscellaneous Test Crossmatch 12/13/16 12/13/16 12/13/16 04:00 04:00 05:19 WBC 18.7 H RBC 2.89 L Hgb 8.3 L Hct 24.6 L MCV MCH MCHC RDW 17.5 H Plt Count Lymph % (Auto) [place] % (Auto) Lymph # [place] # 1.3 H Baso # Seg Neutrophils % 71.5 H Seg Neuts % (Manual) Lymphocytes % (Manual) Monocytes % (Manual) Eosinophils % (Manual) Basophils % (Manual) Nucleated RBC % Seg Neutrophils # 13.4 H Seg Neutrophils # Man Lymphocytes # (Manual) Monocytes # (Manual) Eosinophils # (Manual) Basophils # (Manual) PT INR Fibrinogen dRVVT Confirm Interp Factor V Activity POC ABG pH POC ABG pCO2 POC ABG pO2 ABG pO2 ABG HCO3 ABG Base Excess ABG Hemoglobin Oxyhemoglobin Sodium Potassium Chloride Carbon Dioxide BUN 73 H Creatinine 1.5 H Glucose 141 H POC Glucose 171 H Lactic Acid Calcium Ionized Calcium Phosphorus Magnesium Direct Bilirubin AST ALT Alkaline Phosphatase Lactate Dehydrogenase Troponin T C-Reactive Protein Total Protein Albumin Prealbumin Triglycerides Cholesterol LDL Cholesterol Direct HDL Cholesterol 25-OH Vitamin D Total PTH Intact Urine pH Urine WBC (Auto) Urine Creatinine Urine Total Protein Fluid Total Protein Vancomycin Trough Rheumatoid Factor Complement C4 Miscellaneous Test Crossmatch 12/13/16 12/13/16 12/14/16 12:28 16:48 00:01 WBC RBC Hgb Hct MCV MCH MCHC RDW Plt Count Lymph % (Auto) [place] % (Auto) Lymph # [place] # Baso # Seg Neutrophils % Seg Neuts % (Manual) Lymphocytes % (Manual) Monocytes % (Manual) Eosinophils % (Manual) Basophils % (Manual) Nucleated RBC % Seg Neutrophils # Seg Neutrophils # Man Lymphocytes # (Manual) Monocytes # (Manual) Eosinophils # (Manual) Basophils # (Manual) PT INR Fibrinogen dRVVT Confirm Interp Factor V Activity POC ABG pH POC ABG pCO2 POC ABG pO2 ABG pO2 ABG HCO3 ABG Base Excess ABG Hemoglobin Oxyhemoglobin Sodium Potassium Chloride Carbon Dioxide BUN Creatinine Glucose POC Glucose 206 H 173 H 139 H Lactic Acid Calcium Ionized Calcium Phosphorus Magnesium Direct Bilirubin AST ALT Alkaline Phosphatase Lactate Dehydrogenase Troponin T C-Reactive Protein Total Protein Albumin Prealbumin Triglycerides Cholesterol LDL Cholesterol Direct HDL Cholesterol 25-OH Vitamin D Total PTH Intact Urine pH Urine WBC (Auto) Urine Creatinine Urine Total Protein Fluid Total Protein Vancomycin Trough Rheumatoid Factor Complement C4 Miscellaneous Test Crossmatch 12/14/16 12/14/16 12/14/16 05:16 06:10 11:17 WBC RBC Hgb Hct MCV MCH MCHC RDW Plt Count Lymph % (Auto) [place] % (Auto) Lymph # [place] # Baso # Seg Neutrophils % Seg Neuts % (Manual) Lymphocytes % (Manual) Monocytes % (Manual) Eosinophils % (Manual) Basophils % (Manual) Nucleated RBC % Seg Neutrophils # Seg Neutrophils # Man Lymphocytes # (Manual) Monocytes # (Manual) Eosinophils # (Manual) Basophils # (Manual) PT INR Fibrinogen dRVVT Confirm Interp Factor V Activity POC ABG pH POC ABG pCO2 POC ABG pO2 ABG pO2 ABG HCO3 ABG Base Excess ABG Hemoglobin Oxyhemoglobin Sodium Potassium Chloride Carbon Dioxide BUN 57 H Creatinine 1.4 H Glucose 135 H POC Glucose 158 H 137 H Lactic Acid Calcium Ionized Calcium Phosphorus Magnesium Direct Bilirubin AST ALT Alkaline Phosphatase Lactate Dehydrogenase Troponin T C-Reactive Protein Total Protein Albumin Prealbumin Triglycerides Cholesterol LDL Cholesterol Direct HDL Cholesterol 25-OH Vitamin D Total PTH Intact Urine pH Urine WBC (Auto) Urine Creatinine Urine Total Protein Fluid Total Protein Vancomycin Trough Rheumatoid Factor Complement C4 Miscellaneous Test Crossmatch 12/14/16 12/14/16 12/15/16 17:52 23:27 04:00 WBC RBC Hgb Hct MCV MCH MCHC RDW Plt Count Lymph % (Auto) [place] % (Auto) Lymph # [place] # Baso # Seg Neutrophils % Seg Neuts % (Manual) Lymphocytes % (Manual) Monocytes % (Manual) Eosinophils % (Manual) Basophils % (Manual) Nucleated RBC % Seg Neutrophils # Seg Neutrophils # Man Lymphocytes # (Manual) Monocytes # (Manual) Eosinophils # (Manual) Basophils # (Manual) PT INR Fibrinogen dRVVT Confirm Interp Factor V Activity POC ABG pH POC ABG pCO2 POC ABG pO2 ABG pO2 ABG HCO3 ABG Base Excess ABG Hemoglobin Oxyhemoglobin Sodium Potassium Chloride 97.9 L Carbon Dioxide BUN 75 H Creatinine 1.6 H Glucose 122 H POC Glucose 149 H 163 H Lactic Acid Calcium Ionized Calcium Phosphorus 5.20 H Magnesium Direct Bilirubin AST ALT Alkaline Phosphatase Lactate Dehydrogenase Troponin T C-Reactive Protein Total Protein Albumin Prealbumin Triglycerides Cholesterol LDL Cholesterol Direct HDL Cholesterol 25-OH Vitamin D Total PTH Intact Urine pH Urine WBC (Auto) Urine Creatinine Urine Total Protein Fluid Total Protein Vancomycin Trough Rheumatoid Factor Complement C4 Miscellaneous Test Crossmatch 12/15/16 12/15/16 12/15/16 05:50 11:24 17:01 WBC RBC Hgb Hct MCV MCH MCHC RDW Plt Count Lymph % (Auto) [place] % (Auto) Lymph # [place] # Baso # Seg Neutrophils % Seg Neuts % (Manual) Lymphocytes % (Manual) Monocytes % (Manual) Eosinophils % (Manual) Basophils % (Manual) Nucleated RBC % Seg Neutrophils # Seg Neutrophils # Man Lymphocytes # (Manual) Monocytes # (Manual) Eosinophils # (Manual) Basophils # (Manual) PT INR Fibrinogen dRVVT Confirm Interp Factor V Activity POC ABG pH POC ABG pCO2 POC ABG pO2 ABG pO2 ABG HCO3 ABG Base Excess ABG Hemoglobin Oxyhemoglobin Sodium Potassium Chloride Carbon Dioxide BUN Creatinine Glucose POC Glucose 150 H 146 H 167 H Lactic Acid Calcium Ionized Calcium Phosphorus Magnesium Direct Bilirubin AST ALT Alkaline Phosphatase Lactate Dehydrogenase Troponin T C-Reactive Protein Total Protein Albumin Prealbumin Triglycerides Cholesterol LDL Cholesterol Direct HDL Cholesterol 25-OH Vitamin D Total PTH Intact Urine pH Urine WBC (Auto) Urine Creatinine Urine Total Protein Fluid Total Protein Vancomycin Trough Rheumatoid Factor Complement C4 Miscellaneous Test Crossmatch 12/15/16 12/16/16 12/16/16 23:34 05:25 11:24 WBC RBC Hgb Hct MCV MCH MCHC RDW Plt Count Lymph % (Auto) [place] % (Auto) Lymph # [place] # Baso # Seg Neutrophils % Seg Neuts % (Manual) Lymphocytes % (Manual) Monocytes % (Manual) Eosinophils % (Manual) Basophils % (Manual) Nucleated RBC % Seg Neutrophils # Seg Neutrophils # Man Lymphocytes # (Manual) Monocytes # (Manual) Eosinophils # (Manual) Basophils # (Manual) PT INR Fibrinogen dRVVT Confirm Interp Factor V Activity POC ABG pH POC ABG pCO2 POC ABG pO2 ABG pO2 ABG HCO3 ABG Base Excess ABG Hemoglobin Oxyhemoglobin Sodium Potassium Chloride Carbon Dioxide BUN Creatinine Glucose POC Glucose 127 H 139 H 165 H Lactic Acid Calcium Ionized Calcium Phosphorus Magnesium Direct Bilirubin AST ALT Alkaline Phosphatase Lactate Dehydrogenase Troponin T C-Reactive Protein Total Protein Albumin Prealbumin Triglycerides Cholesterol LDL Cholesterol Direct HDL Cholesterol 25-OH Vitamin D Total PTH Intact Urine pH Urine WBC (Auto) Urine Creatinine Urine Total Protein Fluid Total Protein Vancomycin Trough Rheumatoid Factor Complement C4 Miscellaneous Test Crossmatch 12/16/16 12/16/16 12/16/16 15:30 16:25 17:31 WBC 17.8 H RBC 2.38 L Hgb 6.4 L Hct 20.3 L MCV MCH 27 L MCHC RDW 17.4 H Plt Count Lymph % (Auto) [place] % (Auto) Lymph # [place] # Baso # Seg Neutrophils % Seg Neuts % (Manual) Lymphocytes % (Manual) Monocytes % (Manual) 10.0 H Eosinophils % (Manual) Basophils % (Manual) Nucleated RBC % Seg Neutrophils # Seg Neutrophils # Man 8.5 H Lymphocytes # (Manual) Monocytes # (Manual) 1.8 H Eosinophils # (Manual) Basophils # (Manual) PT INR Fibrinogen dRVVT Confirm Interp Factor V Activity POC ABG pH POC ABG pCO2 POC ABG pO2 ABG pO2 ABG HCO3 ABG Base Excess ABG Hemoglobin Oxyhemoglobin Sodium Potassium Chloride Carbon Dioxide BUN Creatinine Glucose POC Glucose 176 H Lactic Acid Calcium Ionized Calcium Phosphorus Magnesium Direct Bilirubin AST ALT Alkaline Phosphatase Lactate Dehydrogenase Troponin T C-Reactive Protein Total Protein Albumin Prealbumin Triglycerides Cholesterol LDL Cholesterol Direct HDL Cholesterol 25-OH Vitamin D Total PTH Intact Urine pH Urine WBC (Auto) Urine Creatinine Urine Total Protein Fluid Total Protein Vancomycin Trough Rheumatoid Factor Complement C4 Miscellaneous Test Crossmatch See Detail 12/17/16 12/17/16 12/17/16 00:14 04:00 05:00 WBC 20.0 H RBC 2.99 L Hgb 8.5 L Hct 25.7 L MCV MCH MCHC RDW 17.2 H Plt Count Lymph % (Auto) [place] % (Auto) Lymph # [place] # Baso # Seg Neutrophils % Seg Neuts % (Manual) Lymphocytes % (Manual) Monocytes % (Manual) Eosinophils % (Manual) Basophils % (Manual) Nucleated RBC % Seg Neutrophils # Seg Neutrophils # Man Lymphocytes # (Manual) Monocytes # (Manual) Eosinophils # (Manual) Basophils # (Manual) PT INR Fibrinogen dRVVT Confirm Interp Factor V Activity POC ABG pH POC ABG pCO2 POC ABG pO2 ABG pO2 ABG HCO3 ABG Base Excess ABG Hemoglobin Oxyhemoglobin Sodium Potassium Chloride 97.7 L Carbon Dioxide BUN 73 H Creatinine 1.7 H Glucose 136 H POC Glucose 148 H Lactic Acid Calcium Ionized Calcium Phosphorus 2.20 L Magnesium 2.70 H Direct Bilirubin AST ALT Alkaline Phosphatase Lactate Dehydrogenase Troponin T C-Reactive Protein Total Protein Albumin Prealbumin Triglycerides Cholesterol LDL Cholesterol Direct HDL Cholesterol 25-OH Vitamin D Total PTH Intact Urine pH Urine WBC (Auto) Urine Creatinine Urine Total Protein Fluid Total Protein Vancomycin Trough Rheumatoid Factor Complement C4 Miscellaneous Test Crossmatch 12/17/16 12/17/16 12/17/16 05:39 12:50 16:32 WBC RBC Hgb Hct MCV MCH MCHC RDW Plt Count Lymph % (Auto) [place] % (Auto) Lymph # [place] # Baso # Seg Neutrophils % Seg Neuts % (Manual) Lymphocytes % (Manual) Monocytes % (Manual) Eosinophils % (Manual) Basophils % (Manual) Nucleated RBC % Seg Neutrophils # Seg Neutrophils # Man Lymphocytes # (Manual) Monocytes # (Manual) Eosinophils # (Manual) Basophils # (Manual) PT INR Fibrinogen dRVVT Confirm Interp Factor V Activity POC ABG pH POC ABG pCO2 POC ABG pO2 ABG pO2 ABG HCO3 ABG Base Excess ABG Hemoglobin Oxyhemoglobin Sodium Potassium Chloride Carbon Dioxide BUN Creatinine Glucose POC Glucose 162 H 146 H 169 H Lactic Acid Calcium Ionized Calcium Phosphorus Magnesium Direct Bilirubin AST ALT Alkaline Phosphatase Lactate Dehydrogenase Troponin T C-Reactive Protein Total Protein Albumin Prealbumin Triglycerides Cholesterol LDL Cholesterol Direct HDL Cholesterol 25-OH Vitamin D Total PTH Intact Urine pH Urine WBC (Auto) Urine Creatinine Urine Total Protein Fluid Total Protein Vancomycin Trough Rheumatoid Factor Complement C4 Miscellaneous Test Crossmatch 12/17/16 12/18/16 12/18/16 23:57 05:00 05:32 WBC RBC Hgb Hct MCV MCH MCHC RDW Plt Count Lymph % (Auto) [place] % (Auto) Lymph # [place] # Baso # Seg Neutrophils % Seg Neuts % (Manual) Lymphocytes % (Manual) Monocytes % (Manual) Eosinophils % (Manual) Basophils % (Manual) Nucleated RBC % Seg Neutrophils # Seg Neutrophils # Man Lymphocytes # (Manual) Monocytes # (Manual) Eosinophils # (Manual) Basophils # (Manual) PT INR Fibrinogen dRVVT Confirm Interp Factor V Activity POC ABG pH POC ABG pCO2 POC ABG pO2 ABG pO2 ABG HCO3 ABG Base Excess ABG Hemoglobin Oxyhemoglobin Sodium Potassium Chloride 97.0 L Carbon Dioxide BUN 63 H Creatinine 1.4 H Glucose 174 H POC Glucose 145 H 201 H Lactic Acid Calcium Ionized Calcium Phosphorus 1.70 L D Magnesium Direct Bilirubin AST ALT Alkaline Phosphatase 257 H Lactate Dehydrogenase Troponin T C-Reactive Protein Total Protein 5.9 L Albumin 1.8 L Prealbumin Triglycerides Cholesterol LDL Cholesterol Direct HDL Cholesterol 25-OH Vitamin D Total PTH Intact Urine pH Urine WBC (Auto) Urine Creatinine Urine Total Protein Fluid Total Protein Vancomycin Trough Rheumatoid Factor Complement C4 Miscellaneous Test Crossmatch 12/18/16 12/18/16 12/18/16 11:43 16:52 23:52 WBC RBC Hgb Hct MCV MCH MCHC RDW Plt Count Lymph % (Auto) [place] % (Auto) Lymph # [place] # Baso # Seg Neutrophils % Seg Neuts % (Manual) Lymphocytes % (Manual) Monocytes % (Manual) Eosinophils % (Manual) Basophils % (Manual) Nucleated RBC % Seg Neutrophils # Seg Neutrophils # Man Lymphocytes # (Manual) Monocytes # (Manual) Eosinophils # (Manual) Basophils # (Manual) PT INR Fibrinogen dRVVT Confirm Interp Factor V Activity POC ABG pH POC ABG pCO2 POC ABG pO2 ABG pO2 ABG HCO3 ABG Base Excess ABG Hemoglobin Oxyhemoglobin Sodium Potassium Chloride Carbon Dioxide BUN Creatinine Glucose POC Glucose 177 H 110 H 162 H Lactic Acid Calcium Ionized Calcium Phosphorus Magnesium Direct Bilirubin AST ALT Alkaline Phosphatase Lactate Dehydrogenase Troponin T C-Reactive Protein Total Protein Albumin Prealbumin Triglycerides Cholesterol LDL Cholesterol Direct HDL Cholesterol 25-OH Vitamin D Total PTH Intact Urine pH Urine WBC (Auto) Urine Creatinine Urine Total Protein Fluid Total Protein Vancomycin Trough Rheumatoid Factor Complement C4 Miscellaneous Test Crossmatch 12/19/16 12/19/16 12/19/16 05:02 05:24 09:30 WBC 20.1 H RBC 2.73 L Hgb 7.6 L Hct 23.6 L MCV MCH MCHC RDW 17.6 H Plt Count Lymph % (Auto) [place] % (Auto) Lymph # [place] # Baso # Seg Neutrophils % Seg Neuts % (Manual) Lymphocytes % (Manual) 13.0 L Monocytes % (Manual) Eosinophils % (Manual) Basophils % (Manual) Nucleated RBC % 1.0 H Seg Neutrophils # Seg Neutrophils # Man 12.9 H Lymphocytes # (Manual) Monocytes # (Manual) 1.4 H Eosinophils # (Manual) Basophils # (Manual) 0.2 H PT INR Fibrinogen dRVVT Confirm Interp Factor V Activity POC ABG pH POC ABG pCO2 POC ABG pO2 ABG pO2 ABG HCO3 ABG Base Excess ABG Hemoglobin Oxyhemoglobin Sodium Potassium Chloride 97.8 L Carbon Dioxide BUN 84 H Creatinine 1.6 H Glucose 133 H POC Glucose 134 H Lactic Acid Calcium Ionized Calcium Phosphorus Magnesium Direct Bilirubin AST ALT Alkaline Phosphatase Lactate Dehydrogenase Troponin T C-Reactive Protein Total Protein Albumin Prealbumin Triglycerides Cholesterol LDL Cholesterol Direct HDL Cholesterol 25-OH Vitamin D Total PTH Intact Urine pH Urine WBC (Auto) Urine Creatinine Urine Total Protein Fluid Total Protein Vancomycin Trough Rheumatoid Factor Complement C4 Miscellaneous Test Crossmatch 12/19/16 12/19/16 12/19/16 09:36 11:12 18:29 WBC RBC Hgb Hct MCV MCH MCHC RDW Plt Count Lymph % (Auto) [place] % (Auto) Lymph # [place] # Baso # Seg Neutrophils % Seg Neuts % (Manual) Lymphocytes % (Manual) Monocytes % (Manual) Eosinophils % (Manual) Basophils % (Manual) Nucleated RBC % Seg Neutrophils # Seg Neutrophils # Man Lymphocytes # (Manual) Monocytes # (Manual) Eosinophils # (Manual) Basophils # (Manual) PT INR Fibrinogen dRVVT Confirm Interp Factor V Activity POC ABG pH 7.503 H POC ABG pCO2 30.1 L POC ABG pO2 ABG pO2 ABG HCO3 ABG Base Excess ABG Hemoglobin Oxyhemoglobin Sodium Potassium Chloride Carbon Dioxide BUN Creatinine Glucose POC Glucose 138 H 156 H Lactic Acid Calcium Ionized Calcium Phosphorus Magnesium Direct Bilirubin AST ALT Alkaline Phosphatase Lactate Dehydrogenase Troponin T C-Reactive Protein Total Protein Albumin Prealbumin Triglycerides Cholesterol LDL Cholesterol Direct HDL Cholesterol 25-OH Vitamin D Total PTH Intact Urine pH Urine WBC (Auto) Urine Creatinine Urine Total Protein Fluid Total Protein Vancomycin Trough Rheumatoid Factor Complement C4 Miscellaneous Test Crossmatch 12/20/16 12/20/16 12/20/16 00:03 06:17 07:07 WBC RBC Hgb Hct MCV MCH MCHC RDW Plt Count Lymph % (Auto) [place] % (Auto) Lymph # [place] # Baso # Seg Neutrophils % Seg Neuts % (Manual) Lymphocytes % (Manual) Monocytes % (Manual) Eosinophils % (Manual) Basophils % (Manual) Nucleated RBC % Seg Neutrophils # Seg Neutrophils # Man Lymphocytes # (Manual) Monocytes # (Manual) Eosinophils # (Manual) Basophils # (Manual) PT INR Fibrinogen dRVVT Confirm Interp Factor V Activity POC ABG pH POC ABG pCO2 POC ABG pO2 ABG pO2 ABG HCO3 ABG Base Excess ABG Hemoglobin Oxyhemoglobin Sodium Potassium Chloride 97.1 L Carbon Dioxide 20 L BUN 97 H Creatinine 1.8 H Glucose 153 H POC Glucose 152 H 175 H Lactic Acid Calcium Ionized Calcium Phosphorus Magnesium Direct Bilirubin AST ALT Alkaline Phosphatase Lactate Dehydrogenase Troponin T C-Reactive Protein Total Protein Albumin Prealbumin Triglycerides Cholesterol LDL Cholesterol Direct HDL Cholesterol 25-OH Vitamin D Total PTH Intact Urine pH Urine WBC (Auto) Urine Creatinine Urine Total Protein Fluid Total Protein Vancomycin Trough Rheumatoid Factor Complement C4 Miscellaneous Test Crossmatch 12/20/16 12/20/16 12/20/16 12:00 17:42 23:53 WBC RBC Hgb Hct MCV MCH MCHC RDW Plt Count Lymph % (Auto) [place] % (Auto) Lymph # [place] # Baso # Seg Neutrophils % Seg Neuts % (Manual) Lymphocytes % (Manual) Monocytes % (Manual) Eosinophils % (Manual) Basophils % (Manual) Nucleated RBC % Seg Neutrophils # Seg Neutrophils # Man Lymphocytes # (Manual) Monocytes # (Manual) Eosinophils # (Manual) Basophils # (Manual) PT INR Fibrinogen dRVVT Confirm Interp Factor V Activity POC ABG pH POC ABG pCO2 POC ABG pO2 ABG pO2 ABG HCO3 ABG Base Excess ABG Hemoglobin Oxyhemoglobin Sodium Potassium Chloride Carbon Dioxide BUN Creatinine Glucose POC Glucose 141 H 156 H 132 H Lactic Acid Calcium Ionized Calcium Phosphorus Magnesium Direct Bilirubin AST ALT Alkaline Phosphatase Lactate Dehydrogenase Troponin T C-Reactive Protein Total Protein Albumin Prealbumin Triglycerides Cholesterol LDL Cholesterol Direct HDL Cholesterol 25-OH Vitamin D Total PTH Intact Urine pH Urine WBC (Auto) Urine Creatinine Urine Total Protein Fluid Total Protein Vancomycin Trough Rheumatoid Factor Complement C4 Miscellaneous Test Crossmatch 12/21/16 12/21/16 12/21/16 05:49 08:50 12:19 WBC RBC Hgb Hct MCV MCH MCHC RDW Plt Count Lymph % (Auto) [place] % (Auto) Lymph # [place] # Baso # Seg Neutrophils % Seg Neuts % (Manual) Lymphocytes % (Manual) Monocytes % (Manual) Eosinophils % (Manual) Basophils % (Manual) Nucleated RBC % Seg Neutrophils # Seg Neutrophils # Man Lymphocytes # (Manual) Monocytes # (Manual) Eosinophils # (Manual) Basophils # (Manual) PT INR Fibrinogen dRVVT Confirm Interp Factor V Activity POC ABG pH POC ABG pCO2 POC ABG pO2 ABG pO2 ABG HCO3 ABG Base Excess ABG Hemoglobin Oxyhemoglobin Sodium Potassium 5.2 H D Chloride Carbon Dioxide BUN 63 H Creatinine Glucose 122 H POC Glucose 132 H 136 H Lactic Acid Calcium 8.3 L Ionized Calcium Phosphorus Magnesium Direct Bilirubin AST ALT Alkaline Phosphatase Lactate Dehydrogenase Troponin T C-Reactive Protein Total Protein Albumin Prealbumin Triglycerides Cholesterol LDL Cholesterol Direct HDL Cholesterol 25-OH Vitamin D Total PTH Intact Urine pH Urine WBC (Auto) Urine Creatinine Urine Total Protein Fluid Total Protein Vancomycin Trough Rheumatoid Factor Complement C4 Miscellaneous Test Crossmatch 12/21/16 12/21/16 12/22/16 17:22 23:58 05:49 WBC RBC Hgb Hct MCV MCH MCHC RDW Plt Count Lymph % (Auto) [place] % (Auto) Lymph # [place] # Baso # Seg Neutrophils % Seg Neuts % (Manual) Lymphocytes % (Manual) Monocytes % (Manual) Eosinophils % (Manual) Basophils % (Manual) Nucleated RBC % Seg Neutrophils # Seg Neutrophils # Man Lymphocytes # (Manual) Monocytes # (Manual) Eosinophils # (Manual) Basophils # (Manual) PT INR Fibrinogen dRVVT Confirm Interp Factor V Activity POC ABG pH POC ABG pCO2 POC ABG pO2 ABG pO2 ABG HCO3 ABG Base Excess ABG Hemoglobin Oxyhemoglobin Sodium Potassium Chloride Carbon Dioxide BUN Creatinine Glucose POC Glucose 135 H 149 H 140 H Lactic Acid Calcium Ionized Calcium Phosphorus Magnesium Direct Bilirubin AST ALT Alkaline Phosphatase Lactate Dehydrogenase Troponin T C-Reactive Protein Total Protein Albumin Prealbumin Triglycerides Cholesterol LDL Cholesterol Direct HDL Cholesterol 25-OH Vitamin D Total PTH Intact Urine pH Urine WBC (Auto) Urine Creatinine Urine Total Protein Fluid Total Protein Vancomycin Trough Rheumatoid Factor Complement C4 Miscellaneous Test Crossmatch 12/22/16 12/22/16 12/22/16 06:10 11:17 17:31 WBC RBC Hgb Hct MCV MCH MCHC RDW Plt Count Lymph % (Auto) [place] % (Auto) Lymph # [place] # Baso # Seg Neutrophils % Seg Neuts % (Manual) Lymphocytes % (Manual) Monocytes % (Manual) Eosinophils % (Manual) Basophils % (Manual) Nucleated RBC % Seg Neutrophils # Seg Neutrophils # Man Lymphocytes # (Manual) Monocytes # (Manual) Eosinophils # (Manual) Basophils # (Manual) PT INR Fibrinogen dRVVT Confirm Interp Factor V Activity POC ABG pH POC ABG pCO2 POC ABG pO2 ABG pO2 ABG HCO3 ABG Base Excess ABG Hemoglobin Oxyhemoglobin Sodium Potassium Chloride Carbon Dioxide BUN 76 H Creatinine 1.5 H Glucose 241 H POC Glucose 193 H 148 H Lactic Acid Calcium Ionized Calcium Phosphorus Magnesium Direct Bilirubin AST ALT Alkaline Phosphatase Lactate Dehydrogenase Troponin T C-Reactive Protein Total Protein Albumin Prealbumin Triglycerides Cholesterol LDL Cholesterol Direct HDL Cholesterol 25-OH Vitamin D Total PTH Intact Urine pH Urine WBC (Auto) Urine Creatinine Urine Total Protein Fluid Total Protein Vancomycin Trough Rheumatoid Factor Complement C4 Miscellaneous Test Crossmatch 12/22/16 12/23/16 12/23/16 23:58 05:00 05:26 WBC RBC Hgb Hct MCV MCH MCHC RDW Plt Count Lymph % (Auto) [place] % (Auto) Lymph # [place] # Baso # Seg Neutrophils % Seg Neuts % (Manual) Lymphocytes % (Manual) Monocytes % (Manual) Eosinophils % (Manual) Basophils % (Manual) Nucleated RBC % Seg Neutrophils # Seg Neutrophils # Man Lymphocytes # (Manual) Monocytes # (Manual) Eosinophils # (Manual) Basophils # (Manual) PT INR Fibrinogen dRVVT Confirm Interp Factor V Activity POC ABG pH POC ABG pCO2 POC ABG pO2 ABG pO2 ABG HCO3 ABG Base Excess ABG Hemoglobin Oxyhemoglobin Sodium Potassium Chloride Carbon Dioxide BUN 49 H Creatinine Glucose 143 H POC Glucose 165 H 154 H Lactic Acid Calcium 8.2 L Ionized Calcium Phosphorus Magnesium 1.60 L Direct Bilirubin AST ALT Alkaline Phosphatase Lactate Dehydrogenase Troponin T C-Reactive Protein Total Protein Albumin Prealbumin Triglycerides Cholesterol LDL Cholesterol Direct HDL Cholesterol 25-OH Vitamin D Total PTH Intact Urine pH Urine WBC (Auto) Urine Creatinine Urine Total Protein Fluid Total Protein Vancomycin Trough Rheumatoid Factor Complement C4 Miscellaneous Test Crossmatch 12/23/16 12/23/16 12/24/16 12:35 17:01 00:01 WBC RBC Hgb Hct MCV MCH MCHC RDW Plt Count Lymph % (Auto) [place] % (Auto) Lymph # [place] # Baso # Seg Neutrophils % Seg Neuts % (Manual) Lymphocytes % (Manual) Monocytes % (Manual) Eosinophils % (Manual) Basophils % (Manual) Nucleated RBC % Seg Neutrophils # Seg Neutrophils # Man Lymphocytes # (Manual) Monocytes # (Manual) Eosinophils # (Manual) Basophils # (Manual) PT INR Fibrinogen dRVVT Confirm Interp Factor V Activity POC ABG pH POC ABG pCO2 POC ABG pO2 ABG pO2 ABG HCO3 ABG Base Excess ABG Hemoglobin Oxyhemoglobin Sodium Potassium Chloride Carbon Dioxide BUN Creatinine Glucose POC Glucose 164 H 149 H 135 H Lactic Acid Calcium Ionized Calcium Phosphorus Magnesium Direct Bilirubin AST ALT Alkaline Phosphatase Lactate Dehydrogenase Troponin T C-Reactive Protein Total Protein Albumin Prealbumin Triglycerides Cholesterol LDL Cholesterol Direct HDL Cholesterol 25-OH Vitamin D Total PTH Intact Urine pH Urine WBC (Auto) Urine Creatinine Urine Total Protein Fluid Total Protein Vancomycin Trough Rheumatoid Factor Complement C4 Miscellaneous Test Crossmatch 12/24/16 12/24/16 12/24/16 05:41 07:01 11:38 WBC RBC Hgb Hct MCV MCH MCHC RDW Plt Count Lymph % (Auto) [place] % (Auto) Lymph # [place] # Baso # Seg Neutrophils % Seg Neuts % (Manual) Lymphocytes % (Manual) Monocytes % (Manual) Eosinophils % (Manual) Basophils % (Manual) Nucleated RBC % Seg Neutrophils # Seg Neutrophils # Man Lymphocytes # (Manual) Monocytes # (Manual) Eosinophils # (Manual) Basophils # (Manual) PT INR Fibrinogen dRVVT Confirm Interp Factor V Activity POC ABG pH POC ABG pCO2 POC ABG pO2 ABG pO2 ABG HCO3 ABG Base Excess ABG Hemoglobin Oxyhemoglobin Sodium Potassium Chloride Carbon Dioxide BUN 72 H Creatinine 1.3 H Glucose 130 H POC Glucose 132 H 156 H Lactic Acid Calcium 8.2 L Ionized Calcium Phosphorus Magnesium Direct Bilirubin AST ALT Alkaline Phosphatase Lactate Dehydrogenase Troponin T C-Reactive Protein Total Protein Albumin Prealbumin Triglycerides Cholesterol LDL Cholesterol Direct HDL Cholesterol 25-OH Vitamin D Total PTH Intact Urine pH Urine WBC (Auto) Urine Creatinine Urine Total Protein Fluid Total Protein Vancomycin Trough Rheumatoid Factor Complement C4 Miscellaneous Test Crossmatch 12/24/16 12/25/16 12/25/16 17:53 00:23 05:45 WBC RBC Hgb Hct MCV MCH MCHC RDW Plt Count Lymph % (Auto) [place] % (Auto) Lymph # [place] # Baso # Seg Neutrophils % Seg Neuts % (Manual) Lymphocytes % (Manual) Monocytes % (Manual) Eosinophils % (Manual) Basophils % (Manual) Nucleated RBC % Seg Neutrophils # Seg Neutrophils # Man Lymphocytes # (Manual) Monocytes # (Manual) Eosinophils # (Manual) Basophils # (Manual) PT INR Fibrinogen dRVVT Confirm Interp Factor V Activity POC ABG pH POC ABG pCO2 POC ABG pO2 ABG pO2 ABG HCO3 ABG Base Excess ABG Hemoglobin Oxyhemoglobin Sodium 146 H Potassium Chloride Carbon Dioxide BUN 51 H Creatinine Glucose 109 H POC Glucose 169 H 117 H Lactic Acid Calcium Ionized Calcium Phosphorus Magnesium Direct Bilirubin AST ALT Alkaline Phosphatase Lactate Dehydrogenase Troponin T C-Reactive Protein Total Protein Albumin Prealbumin Triglycerides Cholesterol LDL Cholesterol Direct HDL Cholesterol 25-OH Vitamin D Total PTH Intact Urine pH Urine WBC (Auto) Urine Creatinine Urine Total Protein Fluid Total Protein Vancomycin Trough Rheumatoid Factor Complement C4 Miscellaneous Test Crossmatch 12/25/16 12/25/16 12/25/16 06:43 11:29 17:14 WBC RBC Hgb Hct MCV MCH MCHC RDW Plt Count Lymph % (Auto) [place] % (Auto) Lymph # [place] # Baso # Seg Neutrophils % Seg Neuts % (Manual) Lymphocytes % (Manual) Monocytes % (Manual) Eosinophils % (Manual) Basophils % (Manual) Nucleated RBC % Seg Neutrophils # Seg Neutrophils # Man Lymphocytes # (Manual) Monocytes # (Manual) Eosinophils # (Manual) Basophils # (Manual) PT INR Fibrinogen dRVVT Confirm Interp Factor V Activity POC ABG pH POC ABG pCO2 POC ABG pO2 ABG pO2 ABG HCO3 ABG Base Excess ABG Hemoglobin Oxyhemoglobin Sodium Potassium Chloride Carbon Dioxide BUN Creatinine Glucose POC Glucose 117 H 128 H 120 H Lactic Acid Calcium Ionized Calcium Phosphorus Magnesium Direct Bilirubin AST ALT Alkaline Phosphatase Lactate Dehydrogenase Troponin T C-Reactive Protein Total Protein Albumin Prealbumin Triglycerides Cholesterol LDL Cholesterol Direct HDL Cholesterol 25-OH Vitamin D Total PTH Intact Urine pH Urine WBC (Auto) Urine Creatinine Urine Total Protein Fluid Total Protein Vancomycin Trough Rheumatoid Factor Complement C4 Miscellaneous Test Crossmatch 12/25/16 12/26/16 12/26/16 23:54 05:40 05:50 WBC 16.2 H RBC 2.32 L Hgb 6.2 L Hct 20.1 L MCV MCH 27 L MCHC RDW 18.6 H Plt Count Lymph % (Auto) [place] % (Auto) Lymph # [place] # Baso # Seg Neutrophils % Seg Neuts % (Manual) Lymphocytes % (Manual) Monocytes % (Manual) Eosinophils % (Manual) Basophils % (Manual) Nucleated RBC % Seg Neutrophils # Seg Neutrophils # Man Lymphocytes # (Manual) Monocytes # (Manual) Eosinophils # (Manual) Basophils # (Manual) PT INR Fibrinogen dRVVT Confirm Interp Factor V Activity POC ABG pH POC ABG pCO2 POC ABG pO2 ABG pO2 ABG HCO3 ABG Base Excess ABG Hemoglobin Oxyhemoglobin Sodium Potassium Chloride Carbon Dioxide BUN Creatinine Glucose POC Glucose 126 H 132 H Lactic Acid Calcium Ionized Calcium Phosphorus Magnesium Direct Bilirubin AST ALT Alkaline Phosphatase Lactate Dehydrogenase Troponin T C-Reactive Protein Total Protein Albumin Prealbumin Triglycerides Cholesterol LDL Cholesterol Direct HDL Cholesterol 25-OH Vitamin D Total PTH Intact Urine pH Urine WBC (Auto) Urine Creatinine Urine Total Protein Fluid Total Protein Vancomycin Trough Rheumatoid Factor Complement C4 Miscellaneous Test Crossmatch 12/26/16 12/26/16 12/26/16 05:50 12:17 12:33 WBC RBC Hgb Hct MCV MCH MCHC RDW Plt Count Lymph % (Auto) [place] % (Auto) Lymph # [place] # Baso # Seg Neutrophils % Seg Neuts % (Manual) Lymphocytes % (Manual) Monocytes % (Manual) Eosinophils % (Manual) Basophils % (Manual) Nucleated RBC % Seg Neutrophils # Seg Neutrophils # Man Lymphocytes # (Manual) Monocytes # (Manual) Eosinophils # (Manual) Basophils # (Manual) PT INR Fibrinogen dRVVT Confirm Interp Factor V Activity POC ABG pH POC ABG pCO2 POC ABG pO2 ABG pO2 ABG HCO3 ABG Base Excess ABG Hemoglobin Oxyhemoglobin Sodium Potassium Chloride Carbon Dioxide BUN 73 H Creatinine 1.3 H Glucose 113 H POC Glucose 117 H Lactic Acid Calcium Ionized Calcium Phosphorus Magnesium Direct Bilirubin AST ALT Alkaline Phosphatase Lactate Dehydrogenase Troponin T C-Reactive Protein Total Protein Albumin Prealbumin Triglycerides Cholesterol LDL Cholesterol Direct HDL Cholesterol 25-OH Vitamin D Total PTH Intact Urine pH Urine WBC (Auto) Urine Creatinine Urine Total Protein Fluid Total Protein Vancomycin Trough Rheumatoid Factor Complement C4 Miscellaneous Test Crossmatch See Detail 12/26/16 12/26/16 12/27/16 20:00 23:21 05:00 WBC RBC Hgb 8.4 L Hct 26.3 L D MCV MCH MCHC RDW Plt Count Lymph % (Auto) [place] % (Auto) Lymph # [place] # Baso # Seg Neutrophils % Seg Neuts % (Manual) Lymphocytes % (Manual) Monocytes % (Manual) Eosinophils % (Manual) Basophils % (Manual) Nucleated RBC % Seg Neutrophils # Seg Neutrophils # Man Lymphocytes # (Manual) Monocytes # (Manual) Eosinophils # (Manual) Basophils # (Manual) PT INR Fibrinogen dRVVT Confirm Interp Factor V Activity POC ABG pH POC ABG pCO2 POC ABG pO2 ABG pO2 ABG HCO3 ABG Base Excess ABG Hemoglobin Oxyhemoglobin Sodium Potassium Chloride Carbon Dioxide BUN 85 H Creatinine 1.6 H Glucose 118 H POC Glucose 124 H Lactic Acid Calcium Ionized Calcium Phosphorus 4.80 H Magnesium Direct Bilirubin AST ALT Alkaline Phosphatase Lactate Dehydrogenase Troponin T C-Reactive Protein Total Protein Albumin Prealbumin Triglycerides Cholesterol LDL Cholesterol Direct HDL Cholesterol 25-OH Vitamin D Total PTH Intact Urine pH Urine WBC (Auto) Urine Creatinine Urine Total Protein Fluid Total Protein Vancomycin Trough Rheumatoid Factor Complement C4 Miscellaneous Test Crossmatch 12/27/16 12/27/16 12/27/16 05:00 05:35 12:24 WBC RBC Hgb 7.6 L Hct 22.8 L MCV MCH MCHC RDW Plt Count Lymph % (Auto) [place] % (Auto) Lymph # [place] # Baso # Seg Neutrophils % Seg Neuts % (Manual) Lymphocytes % (Manual) Monocytes % (Manual) Eosinophils % (Manual) Basophils % (Manual) Nucleated RBC % Seg Neutrophils # Seg Neutrophils # Man Lymphocytes # (Manual) Monocytes # (Manual) Eosinophils # (Manual) Basophils # (Manual) PT INR Fibrinogen dRVVT Confirm Interp Factor V Activity POC ABG pH POC ABG pCO2 POC ABG pO2 ABG pO2 ABG HCO3 ABG Base Excess ABG Hemoglobin Oxyhemoglobin Sodium Potassium Chloride Carbon Dioxide BUN Creatinine Glucose POC Glucose 115 H 131 H Lactic Acid Calcium Ionized Calcium Phosphorus Magnesium Direct Bilirubin AST ALT Alkaline Phosphatase Lactate Dehydrogenase Troponin T C-Reactive Protein Total Protein Albumin Prealbumin Triglycerides Cholesterol LDL Cholesterol Direct HDL Cholesterol 25-OH Vitamin D Total PTH Intact Urine pH Urine WBC (Auto) Urine Creatinine Urine Total Protein Fluid Total Protein Vancomycin Trough Rheumatoid Factor Complement C4 Miscellaneous Test Crossmatch 12/27/16 12/28/16 12/28/16 17:16 00:18 04:00 WBC RBC Hgb Hct MCV MCH MCHC RDW Plt Count Lymph % (Auto) [place] % (Auto) Lymph # [place] # Baso # Seg Neutrophils % Seg Neuts % (Manual) Lymphocytes % (Manual) Monocytes % (Manual) Eosinophils % (Manual) Basophils % (Manual) Nucleated RBC % Seg Neutrophils # Seg Neutrophils # Man Lymphocytes # (Manual) Monocytes # (Manual) Eosinophils # (Manual) Basophils # (Manual) PT INR Fibrinogen dRVVT Confirm Interp Factor V Activity POC ABG pH POC ABG pCO2 POC ABG pO2 ABG pO2 ABG HCO3 ABG Base Excess ABG Hemoglobin Oxyhemoglobin Sodium Potassium 3.5 L Chloride Carbon Dioxide BUN 57 H Creatinine Glucose 118 H POC Glucose 136 H 120 H Lactic Acid Calcium 8.3 L Ionized Calcium Phosphorus Magnesium Direct Bilirubin AST ALT Alkaline Phosphatase Lactate Dehydrogenase Troponin T C-Reactive Protein Total Protein Albumin Prealbumin Triglycerides Cholesterol LDL Cholesterol Direct HDL Cholesterol 25-OH Vitamin D Total PTH Intact Urine pH Urine WBC (Auto) Urine Creatinine Urine Total Protein Fluid Total Protein Vancomycin Trough Rheumatoid Factor Complement C4 Miscellaneous Test Crossmatch 1112/28/16 12/28/16 04:00 05:11 08:30 WBC 17.0 H RBC 2.58 L Hgb 7.1 L Hct 22.0 L MCV MCH MCHC RDW 17.6 H Plt Count Lymph % (Auto) 12.2 L [place] % (Auto) Lymph # [place] # 1.1 H Baso # Seg Neutrophils % 80.5 H Seg Neuts % (Manual) Lymphocytes % (Manual) Monocytes % (Manual) Eosinophils % (Manual) Basophils % (Manual) Nucleated RBC % Seg Neutrophils # 13.7 H Seg Neutrophils # Man Lymphocytes # (Manual) Monocytes # (Manual) Eosinophils # (Manual) Basophils # (Manual) PT 16.1 H INR 1.23 H Fibrinogen dRVVT Confirm Interp Factor V Activity POC ABG pH POC ABG pCO2 POC ABG pO2 ABG pO2 ABG HCO3 ABG Base Excess ABG Hemoglobin Oxyhemoglobin Sodium Potassium Chloride Carbon Dioxide BUN Creatinine Glucose POC Glucose 122 H Lactic Acid Calcium Ionized Calcium Phosphorus Magnesium Direct Bilirubin AST ALT Alkaline Phosphatase Lactate Dehydrogenase Troponin T C-Reactive Protein Total Protein Albumin Prealbumin Triglycerides Cholesterol LDL Cholesterol Direct HDL Cholesterol 25-OH Vitamin D Total PTH Intact Urine pH Urine WBC (Auto) Urine Creatinine Urine Total Protein Fluid Total Protein Vancomycin Trough Rheumatoid Factor Complement C4 Miscellaneous Test Crossmatch 12/28/16 12/28/16 12/28/16 12:27 16:32 23:46 WBC RBC Hgb Hct MCV MCH MCHC RDW Plt Count Lymph % (Auto) [place] % (Auto) Lymph # [place] # Baso # Seg Neutrophils % Seg Neuts % (Manual) Lymphocytes % (Manual) Monocytes % (Manual) Eosinophils % (Manual) Basophils % (Manual) Nucleated RBC % Seg Neutrophils # Seg Neutrophils # Man Lymphocytes # (Manual) Monocytes # (Manual) Eosinophils # (Manual) Basophils # (Manual) PT INR Fibrinogen dRVVT Confirm Interp Factor V Activity POC ABG pH POC ABG pCO2 POC ABG pO2 ABG pO2 ABG HCO3 ABG Base Excess ABG Hemoglobin Oxyhemoglobin Sodium Potassium Chloride Carbon Dioxide BUN Creatinine Glucose POC Glucose 127 H 117 H 108 H Lactic Acid Calcium Ionized Calcium Phosphorus Magnesium Direct Bilirubin AST ALT Alkaline Phosphatase Lactate Dehydrogenase Troponin T C-Reactive Protein Total Protein Albumin Prealbumin Triglycerides Cholesterol LDL Cholesterol Direct HDL Cholesterol 25-OH Vitamin D Total PTH Intact Urine pH Urine WBC (Auto) Urine Creatinine Urine Total Protein Fluid Total Protein Vancomycin Trough Rheumatoid Factor Complement C4 Miscellaneous Test Crossmatch 12/29/16 12/29/16 12/29/16 05:15 05:15 05:32 WBC RBC Hgb Hct MCV MCH MCHC RDW Plt Count Lymph % (Auto) [place] % (Auto) Lymph # [place] # Baso # Seg Neutrophils % Seg Neuts % (Manual) Lymphocytes % (Manual) Monocytes % (Manual) Eosinophils % (Manual) Basophils % (Manual) Nucleated RBC % Seg Neutrophils # Seg Neutrophils # Man Lymphocytes # (Manual) Monocytes # (Manual) Eosinophils # (Manual) Basophils # (Manual) PT INR Fibrinogen dRVVT Confirm Interp Factor V Activity POC ABG pH POC ABG pCO2 POC ABG pO2 ABG pO2 ABG HCO3 ABG Base Excess ABG Hemoglobin Oxyhemoglobin Sodium Potassium Chloride Carbon Dioxide BUN 74 H Creatinine 1.6 H Glucose 111 H POC Glucose 123 H Lactic Acid Calcium Ionized Calcium Phosphorus Magnesium Direct Bilirubin AST ALT Alkaline Phosphatase Lactate Dehydrogenase Troponin T C-Reactive Protein Total Protein Albumin Prealbumin 0.110 L Triglycerides Cholesterol LDL Cholesterol Direct HDL Cholesterol 25-OH Vitamin D Total PTH Intact Urine pH Urine WBC (Auto) Urine Creatinine Urine Total Protein Fluid Total Protein Vancomycin Trough Rheumatoid Factor Complement C4 Miscellaneous Test Crossmatch 12/29/16 12/29/16 12/29/16 11:43 13:45 14:00 WBC 13.8 H RBC 2.26 L Hgb 6.3 L Hct 20.4 L MCV MCH MCHC RDW 18.3 H Plt Count Lymph % (Auto) [place] % (Auto) Lymph # [place] # 0.9 H Baso # Seg Neutrophils % 78.6 H Seg Neuts % (Manual) Lymphocytes % (Manual) Monocytes % (Manual) Eosinophils % (Manual) Basophils % (Manual) Nucleated RBC % Seg Neutrophils # 10.8 H Seg Neutrophils # Man Lymphocytes # (Manual) Monocytes # (Manual) Eosinophils # (Manual) Basophils # (Manual) PT INR Fibrinogen dRVVT Confirm Interp Factor V Activity POC ABG pH POC ABG pCO2 POC ABG pO2 ABG pO2 ABG HCO3 ABG Base Excess ABG Hemoglobin Oxyhemoglobin Sodium Potassium Chloride Carbon Dioxide BUN Creatinine Glucose POC Glucose 133 H Lactic Acid Calcium Ionized Calcium Phosphorus Magnesium Direct Bilirubin AST ALT Alkaline Phosphatase Lactate Dehydrogenase Troponin T C-Reactive Protein Total Protein Albumin Prealbumin Triglycerides Cholesterol LDL Cholesterol Direct HDL Cholesterol 25-OH Vitamin D Total PTH Intact Urine pH Urine WBC (Auto) Urine Creatinine Urine Total Protein Fluid Total Protein Vancomycin Trough Rheumatoid Factor Complement C4 Miscellaneous Test Crossmatch See Detail 12/29/16 12/29/16 12/29/16 17:03 23:15 23:22 WBC RBC Hgb 7.3 L Hct 22.3 L MCV MCH MCHC RDW Plt Count Lymph % (Auto) [place] % (Auto) Lymph # [place] # Baso # Seg Neutrophils % Seg Neuts % (Manual) Lymphocytes % (Manual) Monocytes % (Manual) Eosinophils % (Manual) Basophils % (Manual) Nucleated RBC % Seg Neutrophils # Seg Neutrophils # Man Lymphocytes # (Manual) Monocytes # (Manual) Eosinophils # (Manual) Basophils # (Manual) PT INR Fibrinogen dRVVT Confirm Interp Factor V Activity POC ABG pH POC ABG pCO2 POC ABG pO2 ABG pO2 ABG HCO3 ABG Base Excess ABG Hemoglobin Oxyhemoglobin Sodium Potassium Chloride Carbon Dioxide BUN Creatinine Glucose POC Glucose 139 H 120 H Lactic Acid Calcium Ionized Calcium Phosphorus Magnesium Direct Bilirubin AST ALT Alkaline Phosphatase Lactate Dehydrogenase Troponin T C-Reactive Protein Total Protein Albumin Prealbumin Triglycerides Cholesterol LDL Cholesterol Direct HDL Cholesterol 25-OH Vitamin D Total PTH Intact Urine pH Urine WBC (Auto) Urine Creatinine Urine Total Protein Fluid Total Protein Vancomycin Trough Rheumatoid Factor Complement C4 Miscellaneous Test Crossmatch 12/30/16 12/30/16 12/30/16 04:20 04:20 05:43 WBC 15.6 H RBC 2.81 L Hgb 8.0 L Hct 24.0 L MCV MCH MCHC RDW 16.9 H Plt Count Lymph % (Auto) [place] % (Auto) Lymph # [place] # 1.0 H Baso # Seg Neutrophils % 76.2 H Seg Neuts % (Manual) Lymphocytes % (Manual) Monocytes % (Manual) Eosinophils % (Manual) Basophils % (Manual) Nucleated RBC % Seg Neutrophils # 11.9 H Seg Neutrophils # Man Lymphocytes # (Manual) Monocytes # (Manual) Eosinophils # (Manual) Basophils # (Manual) PT INR Fibrinogen dRVVT Confirm Interp Factor V Activity POC ABG pH POC ABG pCO2 POC ABG pO2 ABG pO2 ABG HCO3 ABG Base Excess ABG Hemoglobin Oxyhemoglobin Sodium Potassium Chloride Carbon Dioxide BUN 87 H Creatinine 1.8 H Glucose 119 H POC Glucose 115 H Lactic Acid Calcium Ionized Calcium Phosphorus Magnesium Direct Bilirubin AST ALT Alkaline Phosphatase Lactate Dehydrogenase Troponin T C-Reactive Protein Total Protein Albumin Prealbumin Triglycerides Cholesterol LDL Cholesterol Direct HDL Cholesterol 25-OH Vitamin D Total PTH Intact Urine pH Urine WBC (Auto) Urine Creatinine Urine Total Protein Fluid Total Protein Vancomycin Trough Rheumatoid Factor Complement C4 Miscellaneous Test Crossmatch 12/30/16 12/30/16 12/31/16 17:27 23:21 04:00 WBC RBC Hgb Hct MCV MCH MCHC RDW Plt Count Lymph % (Auto) [place] % (Auto) Lymph # [place] # Baso # Seg Neutrophils % Seg Neuts % (Manual) Lymphocytes % (Manual) Monocytes % (Manual) Eosinophils % (Manual) Basophils % (Manual) Nucleated RBC % Seg Neutrophils # Seg Neutrophils # Man Lymphocytes # (Manual) Monocytes # (Manual) Eosinophils # (Manual) Basophils # (Manual) PT INR Fibrinogen dRVVT Confirm Interp Factor V Activity POC ABG pH POC ABG pCO2 POC ABG pO2 ABG pO2 ABG HCO3 ABG Base Excess ABG Hemoglobin Oxyhemoglobin Sodium Potassium Chloride Carbon Dioxide BUN 59 H Creatinine Glucose 298 H POC Glucose 144 H 125 H Lactic Acid Calcium Ionized Calcium Phosphorus Magnesium Direct Bilirubin AST ALT Alkaline Phosphatase Lactate Dehydrogenase Troponin T C-Reactive Protein Total Protein Albumin Prealbumin Triglycerides Cholesterol LDL Cholesterol Direct HDL Cholesterol 25-OH Vitamin D Total PTH Intact Urine pH Urine WBC (Auto) Urine Creatinine Urine Total Protein Fluid Total Protein Vancomycin Trough Rheumatoid Factor Complement C4 Miscellaneous Test Crossmatch 12/31/16 12/31/16 12/31/16 05:11 12:18 18:17 WBC RBC Hgb Hct MCV MCH MCHC RDW Plt Count Lymph % (Auto) [place] % (Auto) Lymph # [place] # Baso # Seg Neutrophils % Seg Neuts % (Manual) Lymphocytes % (Manual) Monocytes % (Manual) Eosinophils % (Manual) Basophils % (Manual) Nucleated RBC % Seg Neutrophils # Seg Neutrophils # Man Lymphocytes # (Manual) Monocytes # (Manual) Eosinophils # (Manual) Basophils # (Manual) PT INR Fibrinogen dRVVT Confirm Interp Factor V Activity POC ABG pH POC ABG pCO2 POC ABG pO2 ABG pO2 ABG HCO3 ABG Base Excess ABG Hemoglobin Oxyhemoglobin Sodium Potassium Chloride Carbon Dioxide BUN Creatinine Glucose POC Glucose 167 H 125 H 133 H Lactic Acid Calcium Ionized Calcium Phosphorus Magnesium Direct Bilirubin AST ALT Alkaline Phosphatase Lactate Dehydrogenase Troponin T C-Reactive Protein Total Protein Albumin Prealbumin Triglycerides Cholesterol LDL Cholesterol Direct HDL Cholesterol 25-OH Vitamin D Total PTH Intact Urine pH Urine WBC (Auto) Urine Creatinine Urine Total Protein Fluid Total Protein Vancomycin Trough Rheumatoid Factor Complement C4 Miscellaneous Test Crossmatch 12/31/16 01/01/17 01/01/17 23:55 05:00 05:12 WBC RBC Hgb Hct MCV MCH MCHC RDW Plt Count Lymph % (Auto) [place] % (Auto) Lymph # [place] # Baso # Seg Neutrophils % Seg Neuts % (Manual) Lymphocytes % (Manual) Monocytes % (Manual) Eosinophils % (Manual) Basophils % (Manual) Nucleated RBC % Seg Neutrophils # Seg Neutrophils # Man Lymphocytes # (Manual) Monocytes # (Manual) Eosinophils # (Manual) Basophils # (Manual) PT INR Fibrinogen dRVVT Confirm Interp Factor V Activity POC ABG pH POC ABG pCO2 POC ABG pO2 ABG pO2 ABG HCO3 ABG Base Excess ABG Hemoglobin Oxyhemoglobin Sodium Potassium Chloride Carbon Dioxide BUN 76 H Creatinine 1.5 H Glucose 109 H POC Glucose 129 H 129 H Lactic Acid Calcium Ionized Calcium Phosphorus Magnesium Direct Bilirubin AST ALT Alkaline Phosphatase 536 H Lactate Dehydrogenase Troponin T C-Reactive Protein Total Protein Albumin 1.5 L Prealbumin Triglycerides Cholesterol LDL Cholesterol Direct HDL Cholesterol 25-OH Vitamin D Total PTH Intact Urine pH Urine WBC (Auto) Urine Creatinine Urine Total Protein Fluid Total Protein Vancomycin Trough Rheumatoid Factor Complement C4 Miscellaneous Test Crossmatch 01/01/17 01/01/17 01/01/17 12:25 17:01 23:32 WBC RBC Hgb Hct MCV MCH MCHC RDW Plt Count Lymph % (Auto) [place] % (Auto) Lymph # [place] # Baso # Seg Neutrophils % Seg Neuts % (Manual) Lymphocytes % (Manual) Monocytes % (Manual) Eosinophils % (Manual) Basophils % (Manual) Nucleated RBC % Seg Neutrophils # Seg Neutrophils # Man Lymphocytes # (Manual) Monocytes # (Manual) Eosinophils # (Manual) Basophils # (Manual) PT INR Fibrinogen dRVVT Confirm Interp Factor V Activity POC ABG pH POC ABG pCO2 POC ABG pO2 ABG pO2 ABG HCO3 ABG Base Excess ABG Hemoglobin Oxyhemoglobin Sodium Potassium Chloride Carbon Dioxide BUN Creatinine Glucose POC Glucose 140 H 142 H 112 H Lactic Acid Calcium Ionized Calcium Phosphorus Magnesium Direct Bilirubin AST ALT Alkaline Phosphatase Lactate Dehydrogenase Troponin T C-Reactive Protein Total Protein Albumin Prealbumin Triglycerides Cholesterol LDL Cholesterol Direct HDL Cholesterol 25-OH Vitamin D Total PTH Intact Urine pH Urine WBC (Auto) Urine Creatinine Urine Total Protein Fluid Total Protein Vancomycin Trough Rheumatoid Factor Complement C4 Miscellaneous Test Crossmatch 01/02/17 01/02/17 01/02/17 04:56 06:00 11:37 WBC RBC Hgb Hct MCV MCH MCHC RDW Plt Count Lymph % (Auto) [place] % (Auto) Lymph # [place] # Baso # Seg Neutrophils % Seg Neuts % (Manual) Lymphocytes % (Manual) Monocytes % (Manual) Eosinophils % (Manual) Basophils % (Manual) Nucleated RBC % Seg Neutrophils # Seg Neutrophils # Man Lymphocytes # (Manual) Monocytes # (Manual) Eosinophils # (Manual) Basophils # (Manual) PT INR Fibrinogen dRVVT Confirm Interp Factor V Activity POC ABG pH POC ABG pCO2 POC ABG pO2 ABG pO2 ABG HCO3 ABG Base Excess ABG Hemoglobin Oxyhemoglobin Sodium Potassium Chloride Carbon Dioxide BUN 88 H Creatinine 1.7 H Glucose 113 H POC Glucose 136 H 200 H Lactic Acid Calcium Ionized Calcium Phosphorus Magnesium Direct Bilirubin AST ALT Alkaline Phosphatase Lactate Dehydrogenase Troponin T C-Reactive Protein Total Protein Albumin Prealbumin Triglycerides Cholesterol LDL Cholesterol Direct HDL Cholesterol 25-OH Vitamin D Total PTH Intact Urine pH Urine WBC (Auto) Urine Creatinine Urine Total Protein Fluid Total Protein Vancomycin Trough Rheumatoid Factor Complement C4 Miscellaneous Test Crossmatch 01/02/17 01/02/17 01/03/17 17:42 22:52 04:54 WBC RBC Hgb Hct MCV MCH MCHC RDW Plt Count Lymph % (Auto) [place] % (Auto) Lymph # [place] # Baso # Seg Neutrophils % Seg Neuts % (Manual) Lymphocytes % (Manual) Monocytes % (Manual) Eosinophils % (Manual) Basophils % (Manual) Nucleated RBC % Seg Neutrophils # Seg Neutrophils # Man Lymphocytes # (Manual) Monocytes # (Manual) Eosinophils # (Manual) Basophils # (Manual) PT INR Fibrinogen dRVVT Confirm Interp Factor V Activity POC ABG pH POC ABG pCO2 POC ABG pO2 ABG pO2 ABG HCO3 ABG Base Excess ABG Hemoglobin Oxyhemoglobin Sodium Potassium Chloride Carbon Dioxide BUN Creatinine Glucose POC Glucose 112 H 133 H 111 H Lactic Acid Calcium Ionized Calcium Phosphorus Magnesium Direct Bilirubin AST ALT Alkaline Phosphatase Lactate Dehydrogenase Troponin T C-Reactive Protein Total Protein Albumin Prealbumin Triglycerides Cholesterol LDL Cholesterol Direct HDL Cholesterol 25-OH Vitamin D Total PTH Intact Urine pH Urine WBC (Auto) Urine Creatinine Urine Total Protein Fluid Total Protein Vancomycin Trough Rheumatoid Factor Complement C4 Miscellaneous Test Crossmatch 01/03/17 01/03/17 01/03/17 05:00 05:00 14:02 WBC 11.2 H RBC 2.56 L Hgb 7.2 L Hct 22.3 L MCV MCH MCHC RDW 17.3 H Plt Count Lymph % (Auto) [place] % (Auto) 10.0 H Lymph # [place] # 1.1 H Baso # Seg Neutrophils % 70.5 H Seg Neuts % (Manual) Lymphocytes % (Manual) Monocytes % (Manual) Eosinophils % (Manual) Basophils % (Manual) Nucleated RBC % Seg Neutrophils # 7.9 H Seg Neutrophils # Man Lymphocytes # (Manual) Monocytes # (Manual) Eosinophils # (Manual) Basophils # (Manual) PT INR Fibrinogen dRVVT Confirm Interp Factor V Activity POC ABG pH POC ABG pCO2 POC ABG pO2 ABG pO2 ABG HCO3 ABG Base Excess ABG Hemoglobin Oxyhemoglobin Sodium Potassium Chloride Carbon Dioxide BUN 60 H Creatinine 1.3 H Glucose 110 H POC Glucose 119 H Lactic Acid Calcium Ionized Calcium Phosphorus Magnesium Direct Bilirubin AST ALT Alkaline Phosphatase Lactate Dehydrogenase Troponin T C-Reactive Protein Total Protein Albumin Prealbumin Triglycerides Cholesterol LDL Cholesterol Direct HDL Cholesterol 25-OH Vitamin D Total PTH Intact Urine pH Urine WBC (Auto) Urine Creatinine Urine Total Protein Fluid Total Protein Vancomycin Trough Rheumatoid Factor Complement C4 Miscellaneous Test Crossmatch 01/03/17 01/03/17 01/04/17 18:13 23:40 05:57 WBC RBC Hgb Hct MCV MCH MCHC RDW Plt Count Lymph % (Auto) [place] % (Auto) Lymph # [place] # Baso # Seg Neutrophils % Seg Neuts % (Manual) Lymphocytes % (Manual) Monocytes % (Manual) Eosinophils % (Manual) Basophils % (Manual) Nucleated RBC % Seg Neutrophils # Seg Neutrophils # Man Lymphocytes # (Manual) Monocytes # (Manual) Eosinophils # (Manual) Basophils # (Manual) PT INR Fibrinogen dRVVT Confirm Interp Factor V Activity POC ABG pH POC ABG pCO2 POC ABG pO2 ABG pO2 ABG HCO3 ABG Base Excess ABG Hemoglobin Oxyhemoglobin Sodium Potassium Chloride Carbon Dioxide BUN Creatinine Glucose POC Glucose 107 H 129 H 111 H Lactic Acid Calcium Ionized Calcium Phosphorus Magnesium Direct Bilirubin AST ALT Alkaline Phosphatase Lactate Dehydrogenase Troponin T C-Reactive Protein Total Protein Albumin Prealbumin Triglycerides Cholesterol LDL Cholesterol Direct HDL Cholesterol 25-OH Vitamin D Total PTH Intact Urine pH Urine WBC (Auto) Urine Creatinine Urine Total Protein Fluid Total Protein Vancomycin Trough Rheumatoid Factor Complement C4 Miscellaneous Test Crossmatch 01/04/17 01/04/17 01/04/17 12:46 15:27 17:11 WBC RBC Hgb Hct MCV MCH MCHC RDW Plt Count Lymph % (Auto) [place] % (Auto) Lymph # [place] # Baso # Seg Neutrophils % Seg Neuts % (Manual) Lymphocytes % (Manual) Monocytes % (Manual) Eosinophils % (Manual) Basophils % (Manual) Nucleated RBC % Seg Neutrophils # Seg Neutrophils # Man Lymphocytes # (Manual) Monocytes # (Manual) Eosinophils # (Manual) Basophils # (Manual) PT INR Fibrinogen dRVVT Confirm Interp Factor V Activity POC ABG pH POC ABG pCO2 POC ABG pO2 ABG pO2 ABG HCO3 ABG Base Excess ABG Hemoglobin Oxyhemoglobin Sodium Potassium Chloride Carbon Dioxide BUN 43 H Creatinine Glucose 124 H POC Glucose 159 H 125 H Lactic Acid Calcium 8.0 L Ionized Calcium Phosphorus 2.10 L Magnesium Direct Bilirubin AST ALT Alkaline Phosphatase Lactate Dehydrogenase Troponin T C-Reactive Protein Total Protein Albumin Prealbumin Triglycerides Cholesterol LDL Cholesterol Direct HDL Cholesterol 25-OH Vitamin D Total PTH Intact Urine pH Urine WBC (Auto) Urine Creatinine Urine Total Protein Fluid Total Protein Vancomycin Trough Rheumatoid Factor Complement C4 Miscellaneous Test Crossmatch 01/04/17 01/05/17 01/05/17 23:31 04:00 05:46 WBC RBC Hgb Hct MCV MCH MCHC RDW Plt Count Lymph % (Auto) [place] % (Auto) Lymph # [place] # Baso # Seg Neutrophils % Seg Neuts % (Manual) Lymphocytes % (Manual) Monocytes % (Manual) Eosinophils % (Manual) Basophils % (Manual) Nucleated RBC % Seg Neutrophils # Seg Neutrophils # Man Lymphocytes # (Manual) Monocytes # (Manual) Eosinophils # (Manual) Basophils # (Manual) PT INR Fibrinogen dRVVT Confirm Interp Factor V Activity POC ABG pH POC ABG pCO2 POC ABG pO2 ABG pO2 ABG HCO3 ABG Base Excess ABG Hemoglobin Oxyhemoglobin Sodium Potassium Chloride Carbon Dioxide BUN 52 H Creatinine 1.3 H Glucose 113 H POC Glucose 123 H 118 H Lactic Acid Calcium Ionized Calcium Phosphorus 2.40 L Magnesium Direct Bilirubin AST ALT Alkaline Phosphatase Lactate Dehydrogenase Troponin T C-Reactive Protein Total Protein Albumin Prealbumin Triglycerides Cholesterol LDL Cholesterol Direct HDL Cholesterol 25-OH Vitamin D Total PTH Intact Urine pH Urine WBC (Auto) Urine Creatinine Urine Total Protein Fluid Total Protein Vancomycin Trough Rheumatoid Factor Complement C4 Miscellaneous Test Crossmatch 01/05/17 01/05/17 01/05/17 11:41 17:48 23:27 WBC RBC Hgb Hct MCV MCH MCHC RDW Plt Count Lymph % (Auto) [place] % (Auto) Lymph # [place] # Baso # Seg Neutrophils % Seg Neuts % (Manual) Lymphocytes % (Manual) Monocytes % (Manual) Eosinophils % (Manual) Basophils % (Manual) Nucleated RBC % Seg Neutrophils # Seg Neutrophils # Man Lymphocytes # (Manual) Monocytes # (Manual) Eosinophils # (Manual) Basophils # (Manual) PT INR Fibrinogen dRVVT Confirm Interp Factor V Activity POC ABG pH POC ABG pCO2 POC ABG pO2 ABG pO2 ABG HCO3 ABG Base Excess ABG Hemoglobin Oxyhemoglobin Sodium Potassium Chloride Carbon Dioxide BUN Creatinine Glucose POC Glucose 163 H 142 H 155 H Lactic Acid Calcium Ionized Calcium Phosphorus Magnesium Direct Bilirubin AST ALT Alkaline Phosphatase Lactate Dehydrogenase Troponin T C-Reactive Protein Total Protein Albumin Prealbumin Triglycerides Cholesterol LDL Cholesterol Direct HDL Cholesterol 25-OH Vitamin D Total PTH Intact Urine pH Urine WBC (Auto) Urine Creatinine Urine Total Protein Fluid Total Protein Vancomycin Trough Rheumatoid Factor Complement C4 Miscellaneous Test Crossmatch 01/06/17 01/06/17 01/06/17 05:20 07:35 11:18 WBC RBC Hgb Hct MCV MCH MCHC RDW Plt Count Lymph % (Auto) [place] % (Auto) Lymph # [place] # Baso # Seg Neutrophils % Seg Neuts % (Manual) Lymphocytes % (Manual) Monocytes % (Manual) Eosinophils % (Manual) Basophils % (Manual) Nucleated RBC % Seg Neutrophils # Seg Neutrophils # Man Lymphocytes # (Manual) Monocytes # (Manual) Eosinophils # (Manual) Basophils # (Manual) PT INR Fibrinogen dRVVT Confirm Interp Factor V Activity POC ABG pH POC ABG pCO2 POC ABG pO2 ABG pO2 ABG HCO3 ABG Base Excess ABG Hemoglobin Oxyhemoglobin Sodium Potassium Chloride Carbon Dioxide BUN 74 H Creatinine 1.6 H Glucose 135 H POC Glucose 108 H 149 H Lactic Acid Calcium Ionized Calcium Phosphorus Magnesium Direct Bilirubin AST ALT Alkaline Phosphatase Lactate Dehydrogenase Troponin T C-Reactive Protein Total Protein Albumin Prealbumin Triglycerides Cholesterol LDL Cholesterol Direct HDL Cholesterol 25-OH Vitamin D Total PTH Intact Urine pH Urine WBC (Auto) Urine Creatinine Urine Total Protein Fluid Total Protein Vancomycin Trough Rheumatoid Factor Complement C4 Miscellaneous Test Crossmatch 01/06/17 01/07/17 01/07/17 17:17 00:23 05:31 WBC RBC Hgb Hct MCV MCH MCHC RDW Plt Count Lymph % (Auto) [place] % (Auto) Lymph # [place] # Baso # Seg Neutrophils % Seg Neuts % (Manual) Lymphocytes % (Manual) Monocytes % (Manual) Eosinophils % (Manual) Basophils % (Manual) Nucleated RBC % Seg Neutrophils # Seg Neutrophils # Man Lymphocytes # (Manual) Monocytes # (Manual) Eosinophils # (Manual) Basophils # (Manual) PT INR Fibrinogen dRVVT Confirm Interp Factor V Activity POC ABG pH POC ABG pCO2 POC ABG pO2 ABG pO2 ABG HCO3 ABG Base Excess ABG Hemoglobin Oxyhemoglobin Sodium Potassium Chloride Carbon Dioxide BUN Creatinine Glucose POC Glucose 146 H 165 H 153 H Lactic Acid Calcium Ionized Calcium Phosphorus Magnesium Direct Bilirubin AST ALT Alkaline Phosphatase Lactate Dehydrogenase Troponin T C-Reactive Protein Total Protein Albumin Prealbumin Triglycerides Cholesterol LDL Cholesterol Direct HDL Cholesterol 25-OH Vitamin D Total PTH Intact Urine pH Urine WBC (Auto) Urine Creatinine Urine Total Protein Fluid Total Protein Vancomycin Trough Rheumatoid Factor Complement C4 Miscellaneous Test Crossmatch 01/07/17 01/07/17 01/07/17 06:00 11:39 17:11 WBC RBC Hgb Hct MCV MCH MCHC RDW Plt Count Lymph % (Auto) [place] % (Auto) Lymph # [place] # Baso # Seg Neutrophils % Seg Neuts % (Manual) Lymphocytes % (Manual) Monocytes % (Manual) Eosinophils % (Manual) Basophils % (Manual) Nucleated RBC % Seg Neutrophils # Seg Neutrophils # Man Lymphocytes # (Manual) Monocytes # (Manual) Eosinophils # (Manual) Basophils # (Manual) PT INR Fibrinogen dRVVT Confirm Interp Factor V Activity POC ABG pH POC ABG pCO2 POC ABG pO2 ABG pO2 ABG HCO3 ABG Base Excess ABG Hemoglobin Oxyhemoglobin Sodium Potassium Chloride Carbon Dioxide BUN 42 H Creatinine Glucose 175 H POC Glucose 163 H 163 H Lactic Acid Calcium Ionized Calcium Phosphorus 2.40 L D Magnesium Direct Bilirubin AST ALT Alkaline Phosphatase Lactate Dehydrogenase Troponin T C-Reactive Protein Total Protein Albumin Prealbumin Triglycerides Cholesterol LDL Cholesterol Direct HDL Cholesterol 25-OH Vitamin D Total PTH Intact Urine pH Urine WBC (Auto) Urine Creatinine Urine Total Protein Fluid Total Protein Vancomycin Trough Rheumatoid Factor Complement C4 Miscellaneous Test Crossmatch 01/07/17 01/08/17 01/08/17 23:40 05:00 05:00 WBC 27.4 H RBC 2.27 L Hgb 6.1 L Hct 20.4 L MCV MCH 27 L MCHC RDW 17.8 H Plt Count Lymph % (Auto) [place] % (Auto) Lymph # [place] # Baso # Seg Neutrophils % Seg Neuts % (Manual) Lymphocytes % (Manual) Monocytes % (Manual) Eosinophils % (Manual) Basophils % (Manual) Nucleated RBC % Seg Neutrophils # Seg Neutrophils # Man Lymphocytes # (Manual) Monocytes # (Manual) Eosinophils # (Manual) Basophils # (Manual) PT INR Fibrinogen dRVVT Confirm Interp Factor V Activity POC ABG pH POC ABG pCO2 POC ABG pO2 ABG pO2 ABG HCO3 ABG Base Excess ABG Hemoglobin Oxyhemoglobin Sodium Potassium Chloride Carbon Dioxide 16 L D BUN 62 H Creatinine 1.6 H D Glucose 103 H POC Glucose 135 H Lactic Acid Calcium Ionized Calcium Phosphorus Magnesium Direct Bilirubin AST ALT Alkaline Phosphatase Lactate Dehydrogenase Troponin T C-Reactive Protein Total Protein Albumin Prealbumin Triglycerides Cholesterol LDL Cholesterol Direct HDL Cholesterol 25-OH Vitamin D Total PTH Intact Urine pH Urine WBC (Auto) Urine Creatinine Urine Total Protein Fluid Total Protein Vancomycin Trough Rheumatoid Factor Complement C4 Miscellaneous Test Crossmatch 01/08/17 01/08/17 01/08/17 05:25 10:37 10:37 WBC RBC Hgb Hct MCV MCH MCHC RDW Plt Count Lymph % (Auto) [place] % (Auto) Lymph # [place] # Baso # Seg Neutrophils % Seg Neuts % (Manual) Lymphocytes % (Manual) Monocytes % (Manual) Eosinophils % (Manual) Basophils % (Manual) Nucleated RBC % Seg Neutrophils # Seg Neutrophils # Man Lymphocytes # (Manual) Monocytes # (Manual) Eosinophils # (Manual) Basophils # (Manual) PT INR Fibrinogen dRVVT Confirm Interp Factor V Activity POC ABG pH POC ABG pCO2 POC ABG pO2 ABG pO2 ABG HCO3 ABG Base Excess ABG Hemoglobin Oxyhemoglobin Sodium Potassium Chloride Carbon Dioxide BUN Creatinine Glucose POC Glucose 106 H Lactic Acid Calcium Ionized Calcium Phosphorus Magnesium Direct Bilirubin AST ALT Alkaline Phosphatase Lactate Dehydrogenase Troponin T C-Reactive Protein 24.40 H Total Protein Albumin Prealbumin Triglycerides Cholesterol LDL Cholesterol Direct HDL Cholesterol 25-OH Vitamin D Total PTH Intact Urine pH Urine WBC (Auto) Urine Creatinine Urine Total Protein Fluid Total Protein Vancomycin Trough Rheumatoid Factor Complement C4 Miscellaneous Test Crossmatch See Detail 01/08/17 01/08/17 01/08/17 10:37 11:33 15:15 WBC RBC Hgb Hct MCV MCH MCHC RDW Plt Count Lymph % (Auto) [place] % (Auto) Lymph # [place] # Baso # Seg Neutrophils % Seg Neuts % (Manual) Lymphocytes % (Manual) Monocytes % (Manual) Eosinophils % (Manual) Basophils % (Manual) Nucleated RBC % Seg Neutrophils # Seg Neutrophils # Man Lymphocytes # (Manual) Monocytes # (Manual) Eosinophils # (Manual) Basophils # (Manual) PT INR Fibrinogen dRVVT Confirm Interp Factor V Activity POC ABG pH POC ABG pCO2 POC ABG pO2 ABG pO2 ABG HCO3 ABG Base Excess ABG Hemoglobin Oxyhemoglobin Sodium Potassium Chloride Carbon Dioxide BUN Creatinine Glucose POC Glucose 157 H Lactic Acid 9.70 H* 9.10 H* Calcium Ionized Calcium Phosphorus Magnesium Direct Bilirubin AST ALT Alkaline Phosphatase Lactate Dehydrogenase Troponin T C-Reactive Protein Total Protein Albumin Prealbumin Triglycerides Cholesterol LDL Cholesterol Direct HDL Cholesterol 25-OH Vitamin D Total PTH Intact Urine pH Urine WBC (Auto) Urine Creatinine Urine Total Protein Fluid Total Protein Vancomycin Trough Rheumatoid Factor Complement C4 Miscellaneous Test Crossmatch 01/08/17 01/08/17 01/09/17 17:19 23:12 04:40 WBC RBC Hgb Hct MCV MCH MCHC RDW Plt Count Lymph % (Auto) [place] % (Auto) Lymph # [place] # Baso # Seg Neutrophils % Seg Neuts % (Manual) Lymphocytes % (Manual) Monocytes % (Manual) Eosinophils % (Manual) Basophils % (Manual) Nucleated RBC % Seg Neutrophils # Seg Neutrophils # Man Lymphocytes # (Manual) Monocytes # (Manual) Eosinophils # (Manual) Basophils # (Manual) PT INR Fibrinogen dRVVT Confirm Interp Factor V Activity POC ABG pH POC ABG pCO2 POC ABG pO2 ABG pO2 ABG HCO3 ABG Base Excess ABG Hemoglobin Oxyhemoglobin Sodium 147 H Potassium Chloride Carbon Dioxide BUN 82 H Creatinine 1.8 H Glucose 137 H POC Glucose 164 H 157 H Lactic Acid Calcium Ionized Calcium Phosphorus Magnesium Direct Bilirubin AST ALT Alkaline Phosphatase Lactate Dehydrogenase Troponin T C-Reactive Protein Total Protein Albumin Prealbumin Triglycerides Cholesterol LDL Cholesterol Direct HDL Cholesterol 25-OH Vitamin D Total PTH Intact Urine pH Urine WBC (Auto) Urine Creatinine Urine Total Protein Fluid Total Protein Vancomycin Trough Rheumatoid Factor Complement C4 Miscellaneous Test Crossmatch 01/09/17 01/09/17 01/09/17 05:42 08:22 10:57 WBC RBC Hgb Hct MCV MCH MCHC RDW Plt Count Lymph % (Auto) [place] % (Auto) Lymph # [place] # Baso # Seg Neutrophils % Seg Neuts % (Manual) Lymphocytes % (Manual) Monocytes % (Manual) Eosinophils % (Manual) Basophils % (Manual) Nucleated RBC % Seg Neutrophils # Seg Neutrophils # Man Lymphocytes # (Manual) Monocytes # (Manual) Eosinophils # (Manual) Basophils # (Manual) PT INR Fibrinogen dRVVT Confirm Interp Factor V Activity POC ABG pH POC ABG pCO2 POC ABG pO2 ABG pO2 ABG HCO3 ABG Base Excess ABG Hemoglobin Oxyhemoglobin Sodium Potassium Chloride Carbon Dioxide BUN Creatinine Glucose POC Glucose 156 H 122 H Lactic Acid 2.30 H* Calcium Ionized Calcium Phosphorus Magnesium Direct Bilirubin AST ALT Alkaline Phosphatase Lactate Dehydrogenase Troponin T C-Reactive Protein Total Protein Albumin Prealbumin Triglycerides Cholesterol LDL Cholesterol Direct HDL Cholesterol 25-OH Vitamin D Total PTH Intact Urine pH Urine WBC (Auto) Urine Creatinine Urine Total Protein Fluid Total Protein Vancomycin Trough Rheumatoid Factor Complement C4 Miscellaneous Test Crossmatch 01/09/17 01/09/17 01/09/17 13:30 17:14 18:45 WBC RBC Hgb Hct MCV MCH MCHC RDW Plt Count Lymph % (Auto) [place] % (Auto) Lymph # [place] # Baso # Seg Neutrophils % Seg Neuts % (Manual) Lymphocytes % (Manual) Monocytes % (Manual) Eosinophils % (Manual) Basophils % (Manual) Nucleated RBC % Seg Neutrophils # Seg Neutrophils # Man Lymphocytes # (Manual) Monocytes # (Manual) Eosinophils # (Manual) Basophils # (Manual) PT INR Fibrinogen dRVVT Confirm Interp Factor V Activity POC ABG pH POC ABG pCO2 POC ABG pO2 ABG pO2 ABG HCO3 ABG Base Excess ABG Hemoglobin Oxyhemoglobin Sodium Potassium Chloride Carbon Dioxide BUN Creatinine Glucose POC Glucose 127 H Lactic Acid Calcium Ionized Calcium Phosphorus Magnesium Direct Bilirubin AST ALT Alkaline Phosphatase Lactate Dehydrogenase Troponin T C-Reactive Protein 24.70 H Total Protein Albumin Prealbumin Triglycerides Cholesterol LDL Cholesterol Direct HDL Cholesterol 25-OH Vitamin D Total PTH Intact Urine pH Urine WBC (Auto) Urine Creatinine Urine Total Protein Fluid Total Protein Vancomycin Trough Rheumatoid Factor Complement C4 Miscellaneous Test Flexitest 1 H Crossmatch 01/10/17 01/10/17 01/10/17 01:21 04:00 04:00 WBC 18.1 H RBC 3.22 L Hgb 8.8 L Hct 27.0 L D MCV MCH 27 L MCHC RDW 17.0 H Plt Count Lymph % (Auto) [place] % (Auto) Lymph # [place] # Baso # Seg Neutrophils % Seg Neuts % (Manual) Lymphocytes % (Manual) Monocytes % (Manual) Eosinophils % (Manual) Basophils % (Manual) Nucleated RBC % Seg Neutrophils # Seg Neutrophils # Man Lymphocytes # (Manual) Monocytes # (Manual) Eosinophils # (Manual) Basophils # (Manual) PT INR Fibrinogen dRVVT Confirm Interp Factor V Activity POC ABG pH POC ABG pCO2 POC ABG pO2 ABG pO2 ABG HCO3 ABG Base Excess ABG Hemoglobin Oxyhemoglobin Sodium Potassium Chloride Carbon Dioxide BUN 59 H Creatinine 1.3 H Glucose 122 H POC Glucose 160 H Lactic Acid Calcium Ionized Calcium Phosphorus Magnesium Direct Bilirubin AST ALT Alkaline Phosphatase Lactate Dehydrogenase Troponin T C-Reactive Protein Total Protein Albumin Prealbumin Triglycerides Cholesterol LDL Cholesterol Direct HDL Cholesterol 25-OH Vitamin D Total PTH Intact Urine pH Urine WBC (Auto) Urine Creatinine Urine Total Protein Fluid Total Protein Vancomycin Trough Rheumatoid Factor Complement C4 Miscellaneous Test Crossmatch 01/10/17 01/10/17 01/10/17 05:36 12:14 17:55 WBC RBC Hgb Hct MCV MCH MCHC RDW Plt Count Lymph % (Auto) [place] % (Auto) Lymph # [place] # Baso # Seg Neutrophils % Seg Neuts % (Manual) Lymphocytes % (Manual) Monocytes % (Manual) Eosinophils % (Manual) Basophils % (Manual) Nucleated RBC % Seg Neutrophils # Seg Neutrophils # Man Lymphocytes # (Manual) Monocytes # (Manual) Eosinophils # (Manual) Basophils # (Manual) PT INR Fibrinogen dRVVT Confirm Interp Factor V Activity POC ABG pH POC ABG pCO2 POC ABG pO2 ABG pO2 ABG HCO3 ABG Base Excess ABG Hemoglobin Oxyhemoglobin Sodium Potassium Chloride Carbon Dioxide BUN Creatinine Glucose POC Glucose 163 H 120 H 144 H Lactic Acid Calcium Ionized Calcium Phosphorus Magnesium Direct Bilirubin AST ALT Alkaline Phosphatase Lactate Dehydrogenase Troponin T C-Reactive Protein Total Protein Albumin Prealbumin Triglycerides Cholesterol LDL Cholesterol Direct HDL Cholesterol 25-OH Vitamin D Total PTH Intact Urine pH Urine WBC (Auto) Urine Creatinine Urine Total Protein Fluid Total Protein Vancomycin Trough Rheumatoid Factor Complement C4 Miscellaneous Test Crossmatch 11/22/17 11/22/17 11/22/17 00:09 04:00 04:00 WBC 15.8 H RBC 3.04 L Hgb 8.2 L Hct 25.5 L MCV MCH 27 L MCHC RDW 17.3 H Plt Count Lymph % (Auto) [place] % (Auto) Lymph # [place] # Baso # Seg Neutrophils % Seg Neuts % (Manual) Lymphocytes % (Manual) Monocytes % (Manual) Eosinophils % (Manual) Basophils % (Manual) Nucleated RBC % Seg Neutrophils # Seg Neutrophils # Man Lymphocytes # (Manual) Monocytes # (Manual) Eosinophils # (Manual) Basophils # (Manual) PT INR Fibrinogen dRVVT Confirm Interp Factor V Activity POC ABG pH POC ABG pCO2 POC ABG pO2 ABG pO2 ABG HCO3 ABG Base Excess ABG Hemoglobin Oxyhemoglobin Sodium Potassium Chloride Carbon Dioxide BUN 78 H Creatinine 1.6 H Glucose 109 H POC Glucose 122 H Lactic Acid Calcium Ionized Calcium Phosphorus Magnesium Direct Bilirubin AST ALT Alkaline Phosphatase Lactate Dehydrogenase Troponin T C-Reactive Protein Total Protein Albumin Prealbumin Triglycerides Cholesterol LDL Cholesterol Direct HDL Cholesterol 25-OH Vitamin D Total PTH Intact Urine pH Urine WBC (Auto) Urine Creatinine Urine Total Protein Fluid Total Protein Vancomycin Trough Rheumatoid Factor Complement C4 Miscellaneous Test Crossmatch 01/11/17 01/11/17 01/11/17 12:46 18:23 23:42 WBC RBC Hgb Hct MCV MCH MCHC RDW Plt Count Lymph % (Auto) [place] % (Auto) Lymph # [place] # Baso # Seg Neutrophils % Seg Neuts % (Manual) Lymphocytes % (Manual) Monocytes % (Manual) Eosinophils % (Manual) Basophils % (Manual) Nucleated RBC % Seg Neutrophils # Seg Neutrophils # Man Lymphocytes # (Manual) Monocytes # (Manual) Eosinophils # (Manual) Basophils # (Manual) PT INR Fibrinogen dRVVT Confirm Interp Factor V Activity POC ABG pH POC ABG pCO2 POC ABG pO2 ABG pO2 ABG HCO3 ABG Base Excess ABG Hemoglobin Oxyhemoglobin Sodium Potassium Chloride Carbon Dioxide BUN Creatinine Glucose POC Glucose 148 H 125 H 124 H Lactic Acid Calcium Ionized Calcium Phosphorus Magnesium Direct Bilirubin AST ALT Alkaline Phosphatase Lactate Dehydrogenase Troponin T C-Reactive Protein Total Protein Albumin Prealbumin Triglycerides Cholesterol LDL Cholesterol Direct HDL Cholesterol 25-OH Vitamin D Total PTH Intact Urine pH Urine WBC (Auto) Urine Creatinine Urine Total Protein Fluid Total Protein Vancomycin Trough Rheumatoid Factor Complement C4 Miscellaneous Test Crossmatch 01/12/17 01/12/17 01/12/17 04:30 04:30 05:47 WBC 15.8 H RBC 3.31 L Hgb 8.9 L Hct 27.9 L MCV MCH 27 L MCHC RDW 17.4 H Plt Count Lymph % (Auto) [place] % (Auto) Lymph # [place] # Baso # Seg Neutrophils % Seg Neuts % (Manual) Lymphocytes % (Manual) Monocytes % (Manual) Eosinophils % (Manual) Basophils % (Manual) Nucleated RBC % Seg Neutrophils # Seg Neutrophils # Man Lymphocytes # (Manual) Monocytes # (Manual) Eosinophils # (Manual) Basophils # (Manual) PT INR Fibrinogen dRVVT Confirm Interp Factor V Activity POC ABG pH POC ABG pCO2 POC ABG pO2 ABG pO2 ABG HCO3 ABG Base Excess ABG Hemoglobin Oxyhemoglobin Sodium Potassium Chloride Carbon Dioxide BUN 57 H Creatinine Glucose 121 H POC Glucose 110 H Lactic Acid Calcium Ionized Calcium Phosphorus 2.10 L Magnesium Direct Bilirubin AST ALT Alkaline Phosphatase Lactate Dehydrogenase Troponin T C-Reactive Protein Total Protein Albumin Prealbumin Triglycerides Cholesterol LDL Cholesterol Direct HDL Cholesterol 25-OH Vitamin D Total PTH Intact Urine pH Urine WBC (Auto) Urine Creatinine Urine Total Protein Fluid Total Protein Vancomycin Trough Rheumatoid Factor Complement C4 Miscellaneous Test Crossmatch 01/12/17 01/12/17 01/12/17 11:35 17:45 23:14 WBC RBC Hgb Hct MCV MCH MCHC RDW Plt Count Lymph % (Auto) [place] % (Auto) Lymph # [place] # Baso # Seg Neutrophils % Seg Neuts % (Manual) Lymphocytes % (Manual) Monocytes % (Manual) Eosinophils % (Manual) Basophils % (Manual) Nucleated RBC % Seg Neutrophils # Seg Neutrophils # Man Lymphocytes # (Manual) Monocytes # (Manual) Eosinophils # (Manual) Basophils # (Manual) PT INR Fibrinogen dRVVT Confirm Interp Factor V Activity POC ABG pH POC ABG pCO2 POC ABG pO2 ABG pO2 ABG HCO3 ABG Base Excess ABG Hemoglobin Oxyhemoglobin Sodium Potassium Chloride Carbon Dioxide BUN Creatinine Glucose POC Glucose 146 H 117 H 123 H Lactic Acid Calcium Ionized Calcium Phosphorus Magnesium Direct Bilirubin AST ALT Alkaline Phosphatase Lactate Dehydrogenase Troponin T C-Reactive Protein Total Protein Albumin Prealbumin Triglycerides Cholesterol LDL Cholesterol Direct HDL Cholesterol 25-OH Vitamin D Total PTH Intact Urine pH Urine WBC (Auto) Urine Creatinine Urine Total Protein Fluid Total Protein Vancomycin Trough Rheumatoid Factor Complement C4 Miscellaneous Test Crossmatch 01/13/17 01/13/17 01/13/17 05:32 06:00 12:10 WBC RBC Hgb Hct MCV MCH MCHC RDW Plt Count Lymph % (Auto) [place] % (Auto) Lymph # [place] # Baso # Seg Neutrophils % Seg Neuts % (Manual) Lymphocytes % (Manual) Monocytes % (Manual) Eosinophils % (Manual) Basophils % (Manual) Nucleated RBC % Seg Neutrophils # Seg Neutrophils # Man Lymphocytes # (Manual) Monocytes # (Manual) Eosinophils # (Manual) Basophils # (Manual) PT INR Fibrinogen dRVVT Confirm Interp Factor V Activity POC ABG pH POC ABG pCO2 POC ABG pO2 ABG pO2 ABG HCO3 ABG Base Excess ABG Hemoglobin Oxyhemoglobin Sodium Potassium Chloride Carbon Dioxide BUN 80 H Creatinine 1.4 H Glucose 106 H POC Glucose 106 H Lactic Acid Calcium Ionized Calcium Phosphorus Magnesium Direct Bilirubin AST ALT Alkaline Phosphatase Lactate Dehydrogenase Troponin T C-Reactive Protein Total Protein Albumin Prealbumin Triglycerides Cholesterol LDL Cholesterol Direct HDL Cholesterol 25-OH Vitamin D Total PTH Intact Urine pH Urine WBC (Auto) Urine Creatinine Urine Total Protein Fluid Total Protein 3.0 L Vancomycin Trough Rheumatoid Factor Complement C4 Miscellaneous Test Crossmatch 01/13/17 01/13/17 01/13/17 12:17 15:50 17:30 WBC RBC Hgb Hct MCV MCH MCHC RDW Plt Count Lymph % (Auto) [place] % (Auto) Lymph # [place] # Baso # Seg Neutrophils % Seg Neuts % (Manual) Lymphocytes % (Manual) Monocytes % (Manual) Eosinophils % (Manual) Basophils % (Manual) Nucleated RBC % Seg Neutrophils # Seg Neutrophils # Man Lymphocytes # (Manual) Monocytes # (Manual) Eosinophils # (Manual) Basophils # (Manual) PT 15.4 H INR 1.16 H Fibrinogen dRVVT Confirm Interp Factor V Activity POC ABG pH POC ABG pCO2 POC ABG pO2 ABG pO2 ABG HCO3 ABG Base Excess ABG Hemoglobin Oxyhemoglobin Sodium Potassium Chloride Carbon Dioxide BUN Creatinine Glucose POC Glucose 168 H 110 H Lactic Acid Calcium Ionized Calcium Phosphorus Magnesium Direct Bilirubin AST ALT Alkaline Phosphatase Lactate Dehydrogenase Troponin T C-Reactive Protein Total Protein Albumin Prealbumin Triglycerides Cholesterol LDL Cholesterol Direct HDL Cholesterol 25-OH Vitamin D Total PTH Intact Urine pH Urine WBC (Auto) Urine Creatinine Urine Total Protein Fluid Total Protein Vancomycin Trough Rheumatoid Factor Complement C4 Miscellaneous Test Crossmatch 01/13/17 01/14/17 01/14/17 23:42 05:24 05:30 WBC RBC Hgb Hct MCV MCH MCHC RDW Plt Count Lymph % (Auto) [place] % (Auto) Lymph # [place] # Baso # Seg Neutrophils % Seg Neuts % (Manual) Lymphocytes % (Manual) Monocytes % (Manual) Eosinophils % (Manual) Basophils % (Manual) Nucleated RBC % Seg Neutrophils # Seg Neutrophils # Man Lymphocytes # (Manual) Monocytes # (Manual) Eosinophils # (Manual) Basophils # (Manual) PT INR Fibrinogen dRVVT Confirm Interp Factor V Activity POC ABG pH POC ABG pCO2 POC ABG pO2 ABG pO2 ABG HCO3 ABG Base Excess ABG Hemoglobin Oxyhemoglobin Sodium Potassium Chloride Carbon Dioxide BUN 58 H Creatinine Glucose 114 H POC Glucose 155 H 121 H Lactic Acid Calcium Ionized Calcium Phosphorus Magnesium Direct Bilirubin AST ALT Alkaline Phosphatase Lactate Dehydrogenase Troponin T C-Reactive Protein Total Protein Albumin Prealbumin Triglycerides Cholesterol LDL Cholesterol Direct HDL Cholesterol 25-OH Vitamin D Total PTH Intact Urine pH Urine WBC (Auto) Urine Creatinine Urine Total Protein Fluid Total Protein Vancomycin Trough Rheumatoid Factor Complement C4 Miscellaneous Test Crossmatch 01/14/17 01/14/17 01/15/17 12:48 17:36 00:15 WBC RBC Hgb Hct MCV MCH MCHC RDW Plt Count Lymph % (Auto) [place] % (Auto) Lymph # [place] # Baso # Seg Neutrophils % Seg Neuts % (Manual) Lymphocytes % (Manual) Monocytes % (Manual) Eosinophils % (Manual) Basophils % (Manual) Nucleated RBC % Seg Neutrophils # Seg Neutrophils # Man Lymphocytes # (Manual) Monocytes # (Manual) Eosinophils # (Manual) Basophils # (Manual) PT INR Fibrinogen dRVVT Confirm Interp Factor V Activity POC ABG pH POC ABG pCO2 POC ABG pO2 ABG pO2 ABG HCO3 ABG Base Excess ABG Hemoglobin Oxyhemoglobin Sodium Potassium Chloride Carbon Dioxide BUN Creatinine Glucose POC Glucose 130 H 135 H 132 H Lactic Acid Calcium Ionized Calcium Phosphorus Magnesium Direct Bilirubin AST ALT Alkaline Phosphatase Lactate Dehydrogenase Troponin T C-Reactive Protein Total Protein Albumin Prealbumin Triglycerides Cholesterol LDL Cholesterol Direct HDL Cholesterol 25-OH Vitamin D Total PTH Intact Urine pH Urine WBC (Auto) Urine Creatinine Urine Total Protein Fluid Total Protein Vancomycin Trough Rheumatoid Factor Complement C4 Miscellaneous Test Crossmatch 01/15/17 01/15/17 01/15/17 05:01 11:55 12:45 WBC 16.2 H RBC 3.00 L Hgb 8.1 L Hct 25.4 L MCV MCH 27 L MCHC RDW 17.6 H Plt Count Lymph % (Auto) 11.7 L [place] % (Auto) 7.8 H Lymph # [place] # 1.3 H Baso # Seg Neutrophils % 80.1 H Seg Neuts % (Manual) Lymphocytes % (Manual) Monocytes % (Manual) Eosinophils % (Manual) Basophils % (Manual) Nucleated RBC % Seg Neutrophils # 13.0 H Seg Neutrophils # Man Lymphocytes # (Manual) Monocytes # (Manual) Eosinophils # (Manual) Basophils # (Manual) PT INR Fibrinogen dRVVT Confirm Interp Factor V Activity POC ABG pH POC ABG pCO2 POC ABG pO2 ABG pO2 ABG HCO3 ABG Base Excess ABG Hemoglobin Oxyhemoglobin Sodium Potassium Chloride Carbon Dioxide BUN Creatinine Glucose POC Glucose 126 H 125 H Lactic Acid Calcium Ionized Calcium Phosphorus Magnesium Direct Bilirubin AST ALT Alkaline Phosphatase Lactate Dehydrogenase Troponin T C-Reactive Protein Total Protein Albumin Prealbumin Triglycerides Cholesterol LDL Cholesterol Direct HDL Cholesterol 25-OH Vitamin D Total PTH Intact Urine pH Urine WBC (Auto) Urine Creatinine Urine Total Protein Fluid Total Protein Vancomycin Trough Rheumatoid Factor Complement C4 Miscellaneous Test Crossmatch 01/15/17 01/15/17 01/15/17 12:45 17:31 23:39 WBC RBC Hgb Hct MCV MCH MCHC RDW Plt Count Lymph % (Auto) [place] % (Auto) Lymph # [place] # Baso # Seg Neutrophils % Seg Neuts % (Manual) Lymphocytes % (Manual) Monocytes % (Manual) Eosinophils % (Manual) Basophils % (Manual) Nucleated RBC % Seg Neutrophils # Seg Neutrophils # Man Lymphocytes # (Manual) Monocytes # (Manual) Eosinophils # (Manual) Basophils # (Manual) PT INR Fibrinogen dRVVT Confirm Interp Factor V Activity POC ABG pH POC ABG pCO2 POC ABG pO2 ABG pO2 ABG HCO3 ABG Base Excess ABG Hemoglobin Oxyhemoglobin Sodium 136 L Potassium Chloride Carbon Dioxide BUN 87 H Creatinine 1.7 H Glucose 108 H POC Glucose 129 H 112 H Lactic Acid Calcium Ionized Calcium Phosphorus Magnesium Direct Bilirubin AST ALT Alkaline Phosphatase Lactate Dehydrogenase Troponin T C-Reactive Protein Total Protein Albumin Prealbumin Triglycerides Cholesterol LDL Cholesterol Direct HDL Cholesterol 25-OH Vitamin D Total PTH Intact Urine pH Urine WBC (Auto) Urine Creatinine Urine Total Protein Fluid Total Protein Vancomycin Trough Rheumatoid Factor Complement C4 Miscellaneous Test Crossmatch 01/16/17 01/16/17 01/16/17 05:23 11:42 12:32 WBC RBC Hgb Hct MCV MCH MCHC RDW Plt Count Lymph % (Auto) [place] % (Auto) Lymph # [place] # Baso # Seg Neutrophils % Seg Neuts % (Manual) Lymphocytes % (Manual) Monocytes % (Manual) Eosinophils % (Manual) Basophils % (Manual) Nucleated RBC % Seg Neutrophils # Seg Neutrophils # Man Lymphocytes # (Manual) Monocytes # (Manual) Eosinophils # (Manual) Basophils # (Manual) PT INR Fibrinogen dRVVT Confirm Interp Factor V Activity POC ABG pH 7.499 H POC ABG pCO2 30.9 L POC ABG pO2 51 L ABG pO2 ABG HCO3 ABG Base Excess ABG Hemoglobin Oxyhemoglobin Sodium Potassium Chloride Carbon Dioxide BUN Creatinine Glucose POC Glucose 118 H 133 H Lactic Acid Calcium Ionized Calcium Phosphorus Magnesium Direct Bilirubin AST ALT Alkaline Phosphatase Lactate Dehydrogenase Troponin T C-Reactive Protein Total Protein Albumin Prealbumin Triglycerides Cholesterol LDL Cholesterol Direct HDL Cholesterol 25-OH Vitamin D Total PTH Intact Urine pH Urine WBC (Auto) Urine Creatinine Urine Total Protein Fluid Total Protein Vancomycin Trough Rheumatoid Factor Complement C4 Miscellaneous Test Crossmatch 01/16/17 01/16/17 01/16/17 17:52 23:57 Unknown WBC RBC Hgb Hct MCV MCH MCHC RDW Plt Count Lymph % (Auto) [place] % (Auto) Lymph # [place] # Baso # Seg Neutrophils % Seg Neuts % (Manual) Lymphocytes % (Manual) Monocytes % (Manual) Eosinophils % (Manual) Basophils % (Manual) Nucleated RBC % Seg Neutrophils # Seg Neutrophils # Man Lymphocytes # (Manual) Monocytes # (Manual) Eosinophils # (Manual) Basophils # (Manual) PT INR Fibrinogen dRVVT Confirm Interp Factor V Activity POC ABG pH POC ABG pCO2 POC ABG pO2 ABG pO2 ABG HCO3 ABG Base Excess ABG Hemoglobin Oxyhemoglobin Sodium 135 L Potassium Chloride Carbon Dioxide BUN 101 H Creatinine 1.8 H Glucose 117 H POC Glucose 130 H 143 H Lactic Acid Calcium Ionized Calcium Phosphorus 5.80 H Magnesium Direct Bilirubin AST ALT Alkaline Phosphatase Lactate Dehydrogenase Troponin T C-Reactive Protein Total Protein Albumin Prealbumin Triglycerides Cholesterol LDL Cholesterol Direct HDL Cholesterol 25-OH Vitamin D Total PTH Intact Urine pH Urine WBC (Auto) Urine Creatinine Urine Total Protein Fluid Total Protein Vancomycin Trough Rheumatoid Factor Complement C4 Miscellaneous Test Crossmatch 01/17/17 01/17/17 01/17/17 05:30 05:46 11:49 WBC RBC Hgb Hct MCV MCH MCHC RDW Plt Count Lymph % (Auto) [place] % (Auto) Lymph # [place] # Baso # Seg Neutrophils % Seg Neuts % (Manual) Lymphocytes % (Manual) Monocytes % (Manual) Eosinophils % (Manual) Basophils % (Manual) Nucleated RBC % Seg Neutrophils # Seg Neutrophils # Man Lymphocytes # (Manual) Monocytes # (Manual) Eosinophils # (Manual) Basophils # (Manual) PT INR Fibrinogen dRVVT Confirm Interp Factor V Activity POC ABG pH POC ABG pCO2 POC ABG pO2 ABG pO2 ABG HCO3 ABG Base Excess ABG Hemoglobin Oxyhemoglobin Sodium 134 L Potassium Chloride 95.8 L Carbon Dioxide BUN 66 H Creatinine 1.3 H Glucose 138 H POC Glucose 147 H 124 H Lactic Acid Calcium Ionized Calcium Phosphorus Magnesium Direct Bilirubin AST ALT Alkaline Phosphatase 254 H Lactate Dehydrogenase Troponin T C-Reactive Protein Total Protein Albumin 1.3 L Prealbumin Triglycerides Cholesterol LDL Cholesterol Direct HDL Cholesterol 25-OH Vitamin D Total PTH Intact Urine pH Urine WBC (Auto) Urine Creatinine Urine Total Protein Fluid Total Protein Vancomycin Trough Rheumatoid Factor Complement C4 Miscellaneous Test Crossmatch 01/17/17 01/17/17 01/18/17 17:30 23:41 05:15 WBC RBC Hgb Hct MCV MCH MCHC RDW Plt Count Lymph % (Auto) [place] % (Auto) Lymph # [place] # Baso # Seg Neutrophils % Seg Neuts % (Manual) Lymphocytes % (Manual) Monocytes % (Manual) Eosinophils % (Manual) Basophils % (Manual) Nucleated RBC % Seg Neutrophils # Seg Neutrophils # Man Lymphocytes # (Manual) Monocytes # (Manual) Eosinophils # (Manual) Basophils # (Manual) PT INR Fibrinogen dRVVT Confirm Interp Factor V Activity POC ABG pH POC ABG pCO2 POC ABG pO2 ABG pO2 ABG HCO3 ABG Base Excess ABG Hemoglobin Oxyhemoglobin Sodium Potassium Chloride Carbon Dioxide BUN 89 H Creatinine 1.7 H Glucose 118 H POC Glucose 137 H 119 H Lactic Acid Calcium Ionized Calcium Phosphorus Magnesium Direct Bilirubin AST ALT Alkaline Phosphatase Lactate Dehydrogenase Troponin T C-Reactive Protein Total Protein Albumin Prealbumin Triglycerides Cholesterol LDL Cholesterol Direct HDL Cholesterol 25-OH Vitamin D Total PTH Intact Urine pH Urine WBC (Auto) Urine Creatinine Urine Total Protein Fluid Total Protein Vancomycin Trough Rheumatoid Factor Complement C4 Miscellaneous Test Crossmatch 01/18/17 01/18/17 01/18/17 05:19 12:16 18:11 WBC RBC Hgb Hct MCV MCH MCHC RDW Plt Count Lymph % (Auto) [place] % (Auto) Lymph # [place] # Baso # Seg Neutrophils % Seg Neuts % (Manual) Lymphocytes % (Manual) Monocytes % (Manual) Eosinophils % (Manual) Basophils % (Manual) Nucleated RBC % Seg Neutrophils # Seg Neutrophils # Man Lymphocytes # (Manual) Monocytes # (Manual) Eosinophils # (Manual) Basophils # (Manual) PT INR Fibrinogen dRVVT Confirm Interp Factor V Activity POC ABG pH POC ABG pCO2 POC ABG pO2 ABG pO2 ABG HCO3 ABG Base Excess ABG Hemoglobin Oxyhemoglobin Sodium Potassium Chloride Carbon Dioxide BUN Creatinine Glucose POC Glucose 134 H 188 H 113 H Lactic Acid Calcium Ionized Calcium Phosphorus Magnesium Direct Bilirubin AST ALT Alkaline Phosphatase Lactate Dehydrogenase Troponin T C-Reactive Protein Total Protein Albumin Prealbumin Triglycerides Cholesterol LDL Cholesterol Direct HDL Cholesterol 25-OH Vitamin D Total PTH Intact Urine pH Urine WBC (Auto) Urine Creatinine Urine Total Protein Fluid Total Protein Vancomycin Trough Rheumatoid Factor Complement C4 Miscellaneous Test Crossmatch 01/19/17 01/19/17 01/19/17 00:00 05:30 05:36 WBC RBC Hgb Hct MCV MCH MCHC RDW Plt Count Lymph % (Auto) [place] % (Auto) Lymph # [place] # Baso # Seg Neutrophils % Seg Neuts % (Manual) Lymphocytes % (Manual) Monocytes % (Manual) Eosinophils % (Manual) Basophils % (Manual) Nucleated RBC % Seg Neutrophils # Seg Neutrophils # Man Lymphocytes # (Manual) Monocytes # (Manual) Eosinophils # (Manual) Basophils # (Manual) PT INR Fibrinogen dRVVT Confirm Interp Factor V Activity POC ABG pH POC ABG pCO2 POC ABG pO2 ABG pO2 ABG HCO3 ABG Base Excess ABG Hemoglobin Oxyhemoglobin Sodium Potassium Chloride Carbon Dioxide BUN 70 H Creatinine 1.5 H Glucose 121 H POC Glucose 137 H 155 H Lactic Acid Calcium Ionized Calcium Phosphorus 2.10 L D Magnesium Direct Bilirubin AST ALT Alkaline Phosphatase Lactate Dehydrogenase Troponin T C-Reactive Protein Total Protein Albumin Prealbumin Triglycerides Cholesterol LDL Cholesterol Direct HDL Cholesterol 25-OH Vitamin D Total PTH Intact Urine pH Urine WBC (Auto) Urine Creatinine Urine Total Protein Fluid Total Protein Vancomycin Trough Rheumatoid Factor Complement C4 Miscellaneous Test Crossmatch 01/19/17 01/19/17 01/19/17 11:59 15:32 17:57 WBC RBC Hgb Hct MCV MCH MCHC RDW Plt Count Lymph % (Auto) [place] % (Auto) Lymph # [place] # Baso # Seg Neutrophils % Seg Neuts % (Manual) Lymphocytes % (Manual) Monocytes % (Manual) Eosinophils % (Manual) Basophils % (Manual) Nucleated RBC % Seg Neutrophils # Seg Neutrophils # Man Lymphocytes # (Manual) Monocytes # (Manual) Eosinophils # (Manual) Basophils # (Manual) PT INR Fibrinogen dRVVT Confirm Interp Factor V Activity POC ABG pH POC ABG pCO2 33.1 L POC ABG pO2 76 L ABG pO2 ABG HCO3 ABG Base Excess ABG Hemoglobin Oxyhemoglobin Sodium Potassium Chloride Carbon Dioxide BUN Creatinine Glucose POC Glucose 156 H 129 H Lactic Acid Calcium Ionized Calcium Phosphorus Magnesium Direct Bilirubin AST ALT Alkaline Phosphatase Lactate Dehydrogenase Troponin T C-Reactive Protein Total Protein Albumin Prealbumin Triglycerides Cholesterol LDL Cholesterol Direct HDL Cholesterol 25-OH Vitamin D Total PTH Intact Urine pH Urine WBC (Auto) Urine Creatinine Urine Total Protein Fluid Total Protein Vancomycin Trough Rheumatoid Factor Complement C4 Miscellaneous Test Crossmatch 01/19/17 01/20/17 01/20/17 23:49 04:00 05:21 WBC RBC Hgb Hct MCV MCH MCHC RDW Plt Count Lymph % (Auto) [place] % (Auto) Lymph # [place] # Baso # Seg Neutrophils % Seg Neuts % (Manual) Lymphocytes % (Manual) Monocytes % (Manual) Eosinophils % (Manual) Basophils % (Manual) Nucleated RBC % Seg Neutrophils # Seg Neutrophils # Man Lymphocytes # (Manual) Monocytes # (Manual) Eosinophils # (Manual) Basophils # (Manual) PT INR Fibrinogen dRVVT Confirm Interp Factor V Activity POC ABG pH POC ABG pCO2 POC ABG pO2 ABG pO2 ABG HCO3 ABG Base Excess ABG Hemoglobin Oxyhemoglobin Sodium Potassium Chloride Carbon Dioxide BUN 96 H Creatinine 1.9 H Glucose 106 H POC Glucose 125 H 130 H Lactic Acid Calcium Ionized Calcium Phosphorus 2.40 L Magnesium Direct Bilirubin AST ALT Alkaline Phosphatase Lactate Dehydrogenase Troponin T C-Reactive Protein Total Protein Albumin Prealbumin Triglycerides Cholesterol LDL Cholesterol Direct HDL Cholesterol 25-OH Vitamin D Total PTH Intact Urine pH Urine WBC (Auto) Urine Creatinine Urine Total Protein Fluid Total Protein Vancomycin Trough Rheumatoid Factor Complement C4 Miscellaneous Test Crossmatch 01/20/17 01/20/17 01/20/17 11:58 12:17 17:26 WBC RBC Hgb Hct MCV MCH MCHC RDW Plt Count Lymph % (Auto) [place] % (Auto) Lymph # [place] # Baso # Seg Neutrophils % Seg Neuts % (Manual) Lymphocytes % (Manual) Monocytes % (Manual) Eosinophils % (Manual) Basophils % (Manual) Nucleated RBC % Seg Neutrophils # Seg Neutrophils # Man Lymphocytes # (Manual) Monocytes # (Manual) Eosinophils # (Manual) Basophils # (Manual) PT INR Fibrinogen dRVVT Confirm Interp Factor V Activity POC ABG pH POC ABG pCO2 POC ABG pO2 70 L ABG pO2 ABG HCO3 ABG Base Excess ABG Hemoglobin Oxyhemoglobin Sodium Potassium Chloride Carbon Dioxide BUN Creatinine Glucose POC Glucose 118 H 154 H Lactic Acid Calcium Ionized Calcium Phosphorus Magnesium Direct Bilirubin AST ALT Alkaline Phosphatase Lactate Dehydrogenase Troponin T C-Reactive Protein Total Protein Albumin Prealbumin Triglycerides Cholesterol LDL Cholesterol Direct HDL Cholesterol 25-OH Vitamin D Total PTH Intact Urine pH Urine WBC (Auto) Urine Creatinine Urine Total Protein Fluid Total Protein Vancomycin Trough Rheumatoid Factor Complement C4 Miscellaneous Test Crossmatch 01/21/17 01/21/17 01/21/17 04:00 04:56 11:46 WBC RBC Hgb Hct MCV MCH MCHC RDW Plt Count Lymph % (Auto) [place] % (Auto) Lymph # [place] # Baso # Seg Neutrophils % Seg Neuts % (Manual) Lymphocytes % (Manual) Monocytes % (Manual) Eosinophils % (Manual) Basophils % (Manual) Nucleated RBC % Seg Neutrophils # Seg Neutrophils # Man Lymphocytes # (Manual) Monocytes # (Manual) Eosinophils # (Manual) Basophils # (Manual) PT INR Fibrinogen dRVVT Confirm Interp Factor V Activity POC ABG pH POC ABG pCO2 POC ABG pO2 ABG pO2 ABG HCO3 ABG Base Excess ABG Hemoglobin Oxyhemoglobin Sodium Potassium 3.5 L Chloride 97.4 L Carbon Dioxide BUN 66 H Creatinine 1.4 H Glucose POC Glucose 116 H 106 H Lactic Acid Calcium Ionized Calcium Phosphorus 2.10 L Magnesium Direct Bilirubin AST ALT Alkaline Phosphatase Lactate Dehydrogenase Troponin T C-Reactive Protein Total Protein Albumin Prealbumin Triglycerides Cholesterol LDL Cholesterol Direct HDL Cholesterol 25-OH Vitamin D Total PTH Intact Urine pH Urine WBC (Auto) Urine Creatinine Urine Total Protein Fluid Total Protein Vancomycin Trough Rheumatoid Factor Complement C4 Miscellaneous Test Crossmatch 01/21/17 01/21/17 01/22/17 17:25 23:49 05:35 WBC RBC Hgb Hct MCV MCH MCHC RDW Plt Count Lymph % (Auto) [place] % (Auto) Lymph # [place] # Baso # Seg Neutrophils % Seg Neuts % (Manual) Lymphocytes % (Manual) Monocytes % (Manual) Eosinophils % (Manual) Basophils % (Manual) Nucleated RBC % Seg Neutrophils # Seg Neutrophils # Man Lymphocytes # (Manual) Monocytes # (Manual) Eosinophils # (Manual) Basophils # (Manual) PT INR Fibrinogen dRVVT Confirm Interp Factor V Activity POC ABG pH POC ABG pCO2 POC ABG pO2 ABG pO2 ABG HCO3 ABG Base Excess ABG Hemoglobin Oxyhemoglobin Sodium Potassium Chloride Carbon Dioxide BUN Creatinine Glucose POC Glucose 106 H 133 H 107 H Lactic Acid Calcium Ionized Calcium Phosphorus Magnesium Direct Bilirubin AST ALT Alkaline Phosphatase Lactate Dehydrogenase Troponin T C-Reactive Protein Total Protein Albumin Prealbumin Triglycerides Cholesterol LDL Cholesterol Direct HDL Cholesterol 25-OH Vitamin D Total PTH Intact Urine pH Urine WBC (Auto) Urine Creatinine Urine Total Protein Fluid Total Protein Vancomycin Trough Rheumatoid Factor Complement C4 Miscellaneous Test Crossmatch 01/22/17 01/22/17 01/22/17 07:20 07:20 11:31 WBC RBC 2.75 L Hgb 7.5 L Hct 22.7 L MCV MCH 27 L MCHC RDW 17.5 H Plt Count Lymph % (Auto) [place] % (Auto) Lymph # [place] # Baso # Seg Neutrophils % Seg Neuts % (Manual) Lymphocytes % (Manual) Monocytes % (Manual) Eosinophils % (Manual) Basophils % (Manual) Nucleated RBC % Seg Neutrophils # Seg Neutrophils # Man Lymphocytes # (Manual) Monocytes # (Manual) Eosinophils # (Manual) Basophils # (Manual) PT INR Fibrinogen dRVVT Confirm Interp Factor V Activity POC ABG pH POC ABG pCO2 POC ABG pO2 ABG pO2 ABG HCO3 ABG Base Excess ABG Hemoglobin Oxyhemoglobin Sodium Potassium 3.3 L Chloride Carbon Dioxide BUN 42 H Creatinine Glucose 105 H POC Glucose 124 H Lactic Acid Calcium Ionized Calcium Phosphorus 1.70 L Magnesium Direct Bilirubin AST ALT Alkaline Phosphatase Lactate Dehydrogenase Troponin T C-Reactive Protein Total Protein Albumin Prealbumin Triglycerides Cholesterol LDL Cholesterol Direct HDL Cholesterol 25-OH Vitamin D Total PTH Intact Urine pH Urine WBC (Auto) Urine Creatinine Urine Total Protein Fluid Total Protein Vancomycin Trough Rheumatoid Factor Complement C4 Miscellaneous Test Crossmatch 01/22/17 01/22/17 01/23/17 17:16 23:35 05:35 WBC RBC Hgb Hct MCV MCH MCHC RDW Plt Count Lymph % (Auto) [place] % (Auto) Lymph # [place] # Baso # Seg Neutrophils % Seg Neuts % (Manual) Lymphocytes % (Manual) Monocytes % (Manual) Eosinophils % (Manual) Basophils % (Manual) Nucleated RBC % Seg Neutrophils # Seg Neutrophils # Man Lymphocytes # (Manual) Monocytes # (Manual) Eosinophils # (Manual) Basophils # (Manual) PT INR Fibrinogen dRVVT Confirm Interp Factor V Activity POC ABG pH POC ABG pCO2 POC ABG pO2 ABG pO2 ABG HCO3 ABG Base Excess ABG Hemoglobin Oxyhemoglobin Sodium Potassium Chloride Carbon Dioxide BUN Creatinine Glucose POC Glucose 135 H 120 H 111 H Lactic Acid Calcium Ionized Calcium Phosphorus Magnesium Direct Bilirubin AST ALT Alkaline Phosphatase Lactate Dehydrogenase Troponin T C-Reactive Protein Total Protein Albumin Prealbumin Triglycerides Cholesterol LDL Cholesterol Direct HDL Cholesterol 25-OH Vitamin D Total PTH Intact Urine pH Urine WBC (Auto) Urine Creatinine Urine Total Protein Fluid Total Protein Vancomycin Trough Rheumatoid Factor Complement C4 Miscellaneous Test Crossmatch 01/23/17 01/23/17 01/23/17 06:10 17:27 23:44 WBC RBC Hgb Hct MCV MCH MCHC RDW Plt Count Lymph % (Auto) [place] % (Auto) Lymph # [place] # Baso # Seg Neutrophils % Seg Neuts % (Manual) Lymphocytes % (Manual) Monocytes % (Manual) Eosinophils % (Manual) Basophils % (Manual) Nucleated RBC % Seg Neutrophils # Seg Neutrophils # Man Lymphocytes # (Manual) Monocytes # (Manual) Eosinophils # (Manual) Basophils # (Manual) PT INR Fibrinogen dRVVT Confirm Interp Factor V Activity POC ABG pH POC ABG pCO2 POC ABG pO2 ABG pO2 ABG HCO3 ABG Base Excess ABG Hemoglobin Oxyhemoglobin Sodium Potassium 3.3 L Chloride Carbon Dioxide BUN 66 H Creatinine 1.3 H Glucose 109 H POC Glucose 120 H 115 H Lactic Acid Calcium Ionized Calcium Phosphorus 2.20 L D Magnesium Direct Bilirubin AST ALT Alkaline Phosphatase Lactate Dehydrogenase Troponin T C-Reactive Protein Total Protein Albumin Prealbumin Triglycerides Cholesterol LDL Cholesterol Direct HDL Cholesterol 25-OH Vitamin D Total PTH Intact Urine pH Urine WBC (Auto) Urine Creatinine Urine Total Protein Fluid Total Protein Vancomycin Trough Rheumatoid Factor Complement C4 Miscellaneous Test Crossmatch 01/24/17 01/24/17 01/24/17 05:19 05:50 12:19 WBC RBC Hgb Hct MCV MCH MCHC RDW Plt Count Lymph % (Auto) [place] % (Auto) Lymph # [place] # Baso # Seg Neutrophils % Seg Neuts % (Manual) Lymphocytes % (Manual) Monocytes % (Manual) Eosinophils % (Manual) Basophils % (Manual) Nucleated RBC % Seg Neutrophils # Seg Neutrophils # Man Lymphocytes # (Manual) Monocytes # (Manual) Eosinophils # (Manual) Basophils # (Manual) PT INR Fibrinogen dRVVT Confirm Interp Factor V Activity POC ABG pH POC ABG pCO2 POC ABG pO2 ABG pO2 ABG HCO3 ABG Base Excess ABG Hemoglobin Oxyhemoglobin Sodium Potassium Chloride Carbon Dioxide BUN 47 H Creatinine Glucose 117 H POC Glucose 126 H 119 H Lactic Acid Calcium Ionized Calcium Phosphorus 2.30 L Magnesium 1.60 L Direct Bilirubin AST ALT Alkaline Phosphatase Lactate Dehydrogenase Troponin T C-Reactive Protein Total Protein Albumin Prealbumin Triglycerides Cholesterol LDL Cholesterol Direct HDL Cholesterol 25-OH Vitamin D Total PTH Intact Urine pH Urine WBC (Auto) Urine Creatinine Urine Total Protein Fluid Total Protein Vancomycin Trough Rheumatoid Factor Complement C4 Miscellaneous Test Crossmatch 01/24/17 01/25/17 01/25/17 17:08 00:37 04:00 WBC RBC Hgb Hct MCV MCH MCHC RDW Plt Count Lymph % (Auto) [place] % (Auto) Lymph # [place] # Baso # Seg Neutrophils % Seg Neuts % (Manual) Lymphocytes % (Manual) Monocytes % (Manual) Eosinophils % (Manual) Basophils % (Manual) Nucleated RBC % Seg Neutrophils # Seg Neutrophils # Man Lymphocytes # (Manual) Monocytes # (Manual) Eosinophils # (Manual) Basophils # (Manual) PT INR Fibrinogen dRVVT Confirm Interp Factor V Activity POC ABG pH POC ABG pCO2 POC ABG pO2 ABG pO2 ABG HCO3 ABG Base Excess ABG Hemoglobin Oxyhemoglobin Sodium Potassium Chloride Carbon Dioxide BUN 72 H Creatinine 1.3 H Glucose POC Glucose 127 H 110 H Lactic Acid Calcium Ionized Calcium Phosphorus Magnesium Direct Bilirubin AST ALT Alkaline Phosphatase Lactate Dehydrogenase Troponin T C-Reactive Protein Total Protein Albumin Prealbumin Triglycerides Cholesterol LDL Cholesterol Direct HDL Cholesterol 25-OH Vitamin D Total PTH Intact Urine pH Urine WBC (Auto) Urine Creatinine Urine Total Protein Fluid Total Protein Vancomycin Trough Rheumatoid Factor Complement C4 Miscellaneous Test Crossmatch 01/25/17 01/25/17 01/25/17 04:00 11:15 13:05 WBC RBC 2.49 L Hgb 6.7 L Hct 20.9 L MCV MCH 27 L MCHC RDW 18.8 H Plt Count Lymph % (Auto) [place] % (Auto) 10.1 H Lymph # [place] # 1.0 H Baso # Seg Neutrophils % Seg Neuts % (Manual) Lymphocytes % (Manual) Monocytes % (Manual) Eosinophils % (Manual) Basophils % (Manual) Nucleated RBC % Seg Neutrophils # Seg Neutrophils # Man Lymphocytes # (Manual) Monocytes # (Manual) Eosinophils # (Manual) Basophils # (Manual) PT INR Fibrinogen dRVVT Confirm Interp Factor V Activity POC ABG pH POC ABG pCO2 POC ABG pO2 ABG pO2 ABG HCO3 ABG Base Excess ABG Hemoglobin Oxyhemoglobin Sodium Potassium Chloride Carbon Dioxide BUN Creatinine Glucose POC Glucose 128 H Lactic Acid Calcium Ionized Calcium Phosphorus Magnesium Direct Bilirubin AST ALT Alkaline Phosphatase Lactate Dehydrogenase Troponin T C-Reactive Protein Total Protein Albumin Prealbumin Triglycerides Cholesterol LDL Cholesterol Direct HDL Cholesterol 25-OH Vitamin D Total PTH Intact Urine pH Urine WBC (Auto) Urine Creatinine Urine Total Protein Fluid Total Protein Vancomycin Trough Rheumatoid Factor Complement C4 Miscellaneous Test Crossmatch See Detail 01/25/17 01/25/17 01/26/17 18:02 23:07 01:20 WBC RBC Hgb Hct MCV MCH MCHC RDW Plt Count Lymph % (Auto) [place] % (Auto) Lymph # [place] # Baso # Seg Neutrophils % Seg Neuts % (Manual) Lymphocytes % (Manual) Monocytes % (Manual) Eosinophils % (Manual) Basophils % (Manual) Nucleated RBC % Seg Neutrophils # Seg Neutrophils # Man Lymphocytes # (Manual) Monocytes # (Manual) Eosinophils # (Manual) Basophils # (Manual) PT INR Fibrinogen dRVVT Confirm Interp Factor V Activity POC ABG pH POC ABG pCO2 POC ABG pO2 ABG pO2 ABG HCO3 ABG Base Excess ABG Hemoglobin Oxyhemoglobin Sodium Potassium Chloride Carbon Dioxide BUN Creatinine Glucose POC Glucose 120 H 123 H 112 H Lactic Acid Calcium Ionized Calcium Phosphorus Magnesium Direct Bilirubin AST ALT Alkaline Phosphatase Lactate Dehydrogenase Troponin T C-Reactive Protein Total Protein Albumin Prealbumin Triglycerides Cholesterol LDL Cholesterol Direct HDL Cholesterol 25-OH Vitamin D Total PTH Intact Urine pH Urine WBC (Auto) Urine Creatinine Urine Total Protein Fluid Total Protein Vancomycin Trough Rheumatoid Factor Complement C4 Miscellaneous Test Crossmatch 01/26/17 01/26/17 01/26/17 04:20 04:20 11:23 WBC 13.1 H RBC 3.28 L Hgb 9.0 L Hct 26.9 L D MCV MCH 27 L MCHC RDW 17.2 H Plt Count Lymph % (Auto) [place] % (Auto) 9.0 H Lymph # [place] # 1.2 H Baso # Seg Neutrophils % 73.1 H Seg Neuts % (Manual) Lymphocytes % (Manual) Monocytes % (Manual) Eosinophils % (Manual) Basophils % (Manual) Nucleated RBC % Seg Neutrophils # 9.6 H Seg Neutrophils # Man Lymphocytes # (Manual) Monocytes # (Manual) Eosinophils # (Manual) Basophils # (Manual) PT INR Fibrinogen dRVVT Confirm Interp Factor V Activity POC ABG pH POC ABG pCO2 POC ABG pO2 ABG pO2 ABG HCO3 ABG Base Excess ABG Hemoglobin Oxyhemoglobin Sodium Potassium Chloride Carbon Dioxide BUN 51 H Creatinine Glucose 117 H POC Glucose 125 H Lactic Acid Calcium Ionized Calcium Phosphorus Magnesium Direct Bilirubin AST ALT Alkaline Phosphatase Lactate Dehydrogenase Troponin T C-Reactive Protein Total Protein Albumin Prealbumin Triglycerides Cholesterol LDL Cholesterol Direct HDL Cholesterol 25-OH Vitamin D Total PTH Intact Urine pH Urine WBC (Auto) Urine Creatinine Urine Total Protein Fluid Total Protein Vancomycin Trough Rheumatoid Factor Complement C4 Miscellaneous Test Crossmatch 01/26/17 01/27/17 01/27/17 17:11 00:30 04:00 WBC RBC Hgb Hct MCV MCH MCHC RDW Plt Count Lymph % (Auto) [place] % (Auto) Lymph # [place] # Baso # Seg Neutrophils % Seg Neuts % (Manual) Lymphocytes % (Manual) Monocytes % (Manual) Eosinophils % (Manual) Basophils % (Manual) Nucleated RBC % Seg Neutrophils # Seg Neutrophils # Man Lymphocytes # (Manual) Monocytes # (Manual) Eosinophils # (Manual) Basophils # (Manual) PT INR Fibrinogen dRVVT Confirm Interp Factor V Activity POC ABG pH POC ABG pCO2 POC ABG pO2 ABG pO2 ABG HCO3 ABG Base Excess ABG Hemoglobin Oxyhemoglobin Sodium Potassium Chloride 97.7 L Carbon Dioxide 21 L BUN 79 H Creatinine 1.7 H D Glucose 112 H POC Glucose 133 H 135 H Lactic Acid Calcium Ionized Calcium Phosphorus 5.00 H D Magnesium Direct Bilirubin AST ALT Alkaline Phosphatase Lactate Dehydrogenase Troponin T C-Reactive Protein Total Protein Albumin Prealbumin Triglycerides Cholesterol LDL Cholesterol Direct HDL Cholesterol 25-OH Vitamin D Total PTH Intact Urine pH Urine WBC (Auto) Urine Creatinine Urine Total Protein Fluid Total Protein Vancomycin Trough Rheumatoid Factor Complement C4 Miscellaneous Test Crossmatch 01/27/17 01/27/17 01/27/17 05:12 12:18 17:25 WBC RBC Hgb Hct MCV MCH MCHC RDW Plt Count Lymph % (Auto) [place] % (Auto) Lymph # [place] # Baso # Seg Neutrophils % Seg Neuts % (Manual) Lymphocytes % (Manual) Monocytes % (Manual) Eosinophils % (Manual) Basophils % (Manual) Nucleated RBC % Seg Neutrophils # Seg Neutrophils # Man Lymphocytes # (Manual) Monocytes # (Manual) Eosinophils # (Manual) Basophils # (Manual) PT INR Fibrinogen dRVVT Confirm Interp Factor V Activity POC ABG pH POC ABG pCO2 POC ABG pO2 ABG pO2 ABG HCO3 ABG Base Excess ABG Hemoglobin Oxyhemoglobin Sodium Potassium Chloride Carbon Dioxide BUN Creatinine Glucose POC Glucose 116 H 153 H 152 H Lactic Acid Calcium Ionized Calcium Phosphorus Magnesium Direct Bilirubin AST ALT Alkaline Phosphatase Lactate Dehydrogenase Troponin T C-Reactive Protein Total Protein Albumin Prealbumin Triglycerides Cholesterol LDL Cholesterol Direct HDL Cholesterol 25-OH Vitamin D Total PTH Intact Urine pH Urine WBC (Auto) Urine Creatinine Urine Total Protein Fluid Total Protein Vancomycin Trough Rheumatoid Factor Complement C4 Miscellaneous Test Crossmatch 01/27/17 01/28/17 01/28/17 23:42 04:00 04:00 WBC 14.4 H RBC 2.82 L Hgb 7.4 L Hct 23.5 L MCV MCH 26 L MCHC RDW 17.6 H Plt Count Lymph % (Auto) 10.2 L [place] % (Auto) 11.0 H Lymph # [place] # 1.6 H Baso # Seg Neutrophils % 78.0 H Seg Neuts % (Manual) Lymphocytes % (Manual) Monocytes % (Manual) Eosinophils % (Manual) Basophils % (Manual) Nucleated RBC % Seg Neutrophils # 11.3 H Seg Neutrophils # Man Lymphocytes # (Manual) Monocytes # (Manual) Eosinophils # (Manual) Basophils # (Manual) PT INR Fibrinogen dRVVT Confirm Interp Factor V Activity POC ABG pH POC ABG pCO2 POC ABG pO2 ABG pO2 ABG HCO3 ABG Base Excess ABG Hemoglobin Oxyhemoglobin Sodium Potassium Chloride Carbon Dioxide BUN 55 H Creatinine 1.3 H Glucose 114 H POC Glucose 121 H Lactic Acid Calcium Ionized Calcium Phosphorus Magnesium Direct Bilirubin AST ALT Alkaline Phosphatase Lactate Dehydrogenase Troponin T C-Reactive Protein Total Protein Albumin 1.4 L Prealbumin Triglycerides Cholesterol LDL Cholesterol Direct HDL Cholesterol 25-OH Vitamin D Total PTH Intact Urine pH Urine WBC (Auto) Urine Creatinine Urine Total Protein Fluid Total Protein Vancomycin Trough Rheumatoid Factor Complement C4 Miscellaneous Test Crossmatch 01/28/17 01/28/17 01/29/17 04:59 12:30 00:02 WBC RBC Hgb Hct MCV MCH MCHC RDW Plt Count Lymph % (Auto) [place] % (Auto) Lymph # [place] # Baso # Seg Neutrophils % Seg Neuts % (Manual) Lymphocytes % (Manual) Monocytes % (Manual) Eosinophils % (Manual) Basophils % (Manual) Nucleated RBC % Seg Neutrophils # Seg Neutrophils # Man Lymphocytes # (Manual) Monocytes # (Manual) Eosinophils # (Manual) Basophils # (Manual) PT INR Fibrinogen dRVVT Confirm Interp Factor V Activity POC ABG pH POC ABG pCO2 POC ABG pO2 ABG pO2 ABG HCO3 ABG Base Excess ABG Hemoglobin Oxyhemoglobin Sodium Potassium Chloride Carbon Dioxide BUN Creatinine Glucose POC Glucose 126 H 119 H 138 H Lactic Acid Calcium Ionized Calcium Phosphorus Magnesium Direct Bilirubin AST ALT Alkaline Phosphatase Lactate Dehydrogenase Troponin T C-Reactive Protein Total Protein Albumin Prealbumin Triglycerides Cholesterol LDL Cholesterol Direct HDL Cholesterol 25-OH Vitamin D Total PTH Intact Urine pH Urine WBC (Auto) Urine Creatinine Urine Total Protein Fluid Total Protein Vancomycin Trough Rheumatoid Factor Complement C4 Miscellaneous Test Crossmatch 01/29/17 01/29/17 01/29/17 04:58 06:15 11:35 WBC RBC Hgb Hct MCV MCH MCHC RDW Plt Count Lymph % (Auto) [place] % (Auto) Lymph # [place] # Baso # Seg Neutrophils % Seg Neuts % (Manual) Lymphocytes % (Manual) Monocytes % (Manual) Eosinophils % (Manual) Basophils % (Manual) Nucleated RBC % Seg Neutrophils # Seg Neutrophils # Man Lymphocytes # (Manual) Monocytes # (Manual) Eosinophils # (Manual) Basophils # (Manual) PT INR Fibrinogen dRVVT Confirm Interp Factor V Activity POC ABG pH POC ABG pCO2 POC ABG pO2 ABG pO2 ABG HCO3 ABG Base Excess ABG Hemoglobin Oxyhemoglobin Sodium Potassium Chloride Carbon Dioxide BUN 85 H Creatinine 1.7 H Glucose 105 H POC Glucose 114 H 110 H Lactic Acid Calcium Ionized Calcium Phosphorus Magnesium 2.40 H Direct Bilirubin AST ALT Alkaline Phosphatase Lactate Dehydrogenase Troponin T C-Reactive Protein Total Protein Albumin Prealbumin Triglycerides Cholesterol LDL Cholesterol Direct HDL Cholesterol 25-OH Vitamin D Total PTH Intact Urine pH Urine WBC (Auto) Urine Creatinine Urine Total Protein Fluid Total Protein Vancomycin Trough Rheumatoid Factor Complement C4 Miscellaneous Test Crossmatch 01/29/17 01/29/17 01/30/17 18:24 23:41 05:12 WBC RBC Hgb Hct MCV MCH MCHC RDW Plt Count Lymph % (Auto) [place] % (Auto) Lymph # [place] # Baso # Seg Neutrophils % Seg Neuts % (Manual) Lymphocytes % (Manual) Monocytes % (Manual) Eosinophils % (Manual) Basophils % (Manual) Nucleated RBC % Seg Neutrophils # Seg Neutrophils # Man Lymphocytes # (Manual) Monocytes # (Manual) Eosinophils # (Manual) Basophils # (Manual) PT INR Fibrinogen dRVVT Confirm Interp Factor V Activity POC ABG pH POC ABG pCO2 POC ABG pO2 ABG pO2 ABG HCO3 ABG Base Excess ABG Hemoglobin Oxyhemoglobin Sodium Potassium Chloride Carbon Dioxide BUN Creatinine Glucose POC Glucose 109 H 134 H 109 H Lactic Acid Calcium Ionized Calcium Phosphorus Magnesium Direct Bilirubin AST ALT Alkaline Phosphatase Lactate Dehydrogenase Troponin T C-Reactive Protein Total Protein Albumin Prealbumin Triglycerides Cholesterol LDL Cholesterol Direct HDL Cholesterol 25-OH Vitamin D Total PTH Intact Urine pH Urine WBC (Auto) Urine Creatinine Urine Total Protein Fluid Total Protein Vancomycin Trough Rheumatoid Factor Complement C4 Miscellaneous Test Crossmatch 01/30/17 01/30/17 01/30/17 11:26 17:43 23:39 WBC RBC Hgb Hct MCV MCH MCHC RDW Plt Count Lymph % (Auto) [place] % (Auto) Lymph # [place] # Baso # Seg Neutrophils % Seg Neuts % (Manual) Lymphocytes % (Manual) Monocytes % (Manual) Eosinophils % (Manual) Basophils % (Manual) Nucleated RBC % Seg Neutrophils # Seg Neutrophils # Man Lymphocytes # (Manual) Monocytes # (Manual) Eosinophils # (Manual) Basophils # (Manual) PT INR Fibrinogen dRVVT Confirm Interp Factor V Activity POC ABG pH POC ABG pCO2 POC ABG pO2 ABG pO2 ABG HCO3 ABG Base Excess ABG Hemoglobin Oxyhemoglobin Sodium Potassium Chloride Carbon Dioxide BUN Creatinine Glucose POC Glucose 135 H 143 H 122 H Lactic Acid Calcium Ionized Calcium Phosphorus Magnesium Direct Bilirubin AST ALT Alkaline Phosphatase Lactate Dehydrogenase Troponin T C-Reactive Protein Total Protein Albumin Prealbumin Triglycerides Cholesterol LDL Cholesterol Direct HDL Cholesterol 25-OH Vitamin D Total PTH Intact Urine pH Urine WBC (Auto) Urine Creatinine Urine Total Protein Fluid Total Protein Vancomycin Trough Rheumatoid Factor Complement C4 Miscellaneous Test Crossmatch 01/31/17 01/31/17 01/31/17 04:00 05:40 11:12 WBC RBC Hgb Hct MCV MCH MCHC RDW Plt Count Lymph % (Auto) [place] % (Auto) Lymph # [place] # Baso # Seg Neutrophils % Seg Neuts % (Manual) Lymphocytes % (Manual) Monocytes % (Manual) Eosinophils % (Manual) Basophils % (Manual) Nucleated RBC % Seg Neutrophils # Seg Neutrophils # Man Lymphocytes # (Manual) Monocytes # (Manual) Eosinophils # (Manual) Basophils # (Manual) PT INR Fibrinogen dRVVT Confirm Interp Factor V Activity POC ABG pH POC ABG pCO2 POC ABG pO2 ABG pO2 ABG HCO3 ABG Base Excess ABG Hemoglobin Oxyhemoglobin Sodium Potassium Chloride Carbon Dioxide BUN 78 H Creatinine 1.5 H Glucose 108 H POC Glucose 123 H Lactic Acid Calcium Ionized Calcium Phosphorus Magnesium Direct Bilirubin AST ALT Alkaline Phosphatase Lactate Dehydrogenase Troponin T C-Reactive Protein 8.10 H Total Protein Albumin Prealbumin Triglycerides Cholesterol LDL Cholesterol Direct HDL Cholesterol 25-OH Vitamin D Total PTH Intact Urine pH Urine WBC (Auto) Urine Creatinine Urine Total Protein Fluid Total Protein Vancomycin Trough Rheumatoid Factor Complement C4 Miscellaneous Test Crossmatch 01/31/17 01/31/17 01/31/17 11:16 17:45 17:50 WBC RBC Hgb Hct MCV MCH MCHC RDW Plt Count Lymph % (Auto) [place] % (Auto) Lymph # [place] # Baso # Seg Neutrophils % Seg Neuts % (Manual) Lymphocytes % (Manual) Monocytes % (Manual) Eosinophils % (Manual) Basophils % (Manual) Nucleated RBC % Seg Neutrophils # Seg Neutrophils # Man Lymphocytes # (Manual) Monocytes # (Manual) Eosinophils # (Manual) Basophils # (Manual) PT INR Fibrinogen dRVVT Confirm Interp Factor V Activity POC ABG pH POC ABG pCO2 POC ABG pO2 ABG pO2 ABG HCO3 ABG Base Excess ABG Hemoglobin Oxyhemoglobin Sodium Potassium Chloride Carbon Dioxide BUN Creatinine Glucose POC Glucose 119 H 111 H Lactic Acid Calcium Ionized Calcium Phosphorus Magnesium Direct Bilirubin AST ALT Alkaline Phosphatase Lactate Dehydrogenase Troponin T C-Reactive Protein Total Protein Albumin Prealbumin Triglycerides Cholesterol LDL Cholesterol Direct HDL Cholesterol 25-OH Vitamin D Total PTH Intact 6.76 L Urine pH Urine WBC (Auto) Urine Creatinine Urine Total Protein Fluid Total Protein Vancomycin Trough Rheumatoid Factor Complement C4 Miscellaneous Test Crossmatch 01/31/17 02/01/17 02/01/17 23:19 05:42 09:24 WBC RBC Hgb Hct MCV MCH MCHC RDW Plt Count Lymph % (Auto) [place] % (Auto) Lymph # [place] # Baso # Seg Neutrophils % Seg Neuts % (Manual) Lymphocytes % (Manual) Monocytes % (Manual) Eosinophils % (Manual) Basophils % (Manual) Nucleated RBC % Seg Neutrophils # Seg Neutrophils # Man Lymphocytes # (Manual) Monocytes # (Manual) Eosinophils # (Manual) Basophils # (Manual) PT INR Fibrinogen dRVVT Confirm Interp Factor V Activity POC ABG pH POC ABG pCO2 POC ABG pO2 ABG pO2 ABG HCO3 ABG Base Excess ABG Hemoglobin Oxyhemoglobin Sodium Potassium Chloride Carbon Dioxide BUN Creatinine Glucose POC Glucose 118 H 122 H Lactic Acid Calcium Ionized Calcium Phosphorus Magnesium 2.60 H Direct Bilirubin AST ALT Alkaline Phosphatase Lactate Dehydrogenase Troponin T C-Reactive Protein Total Protein Albumin Prealbumin Triglycerides Cholesterol LDL Cholesterol Direct HDL Cholesterol 25-OH Vitamin D Total PTH Intact Urine pH Urine WBC (Auto) Urine Creatinine Urine Total Protein Fluid Total Protein Vancomycin Trough Rheumatoid Factor Complement C4 Miscellaneous Test Crossmatch 02/01/17 02/01/17 02/02/17 09:24 12:15 07:40 WBC RBC Hgb Hct MCV MCH MCHC RDW Plt Count Lymph % (Auto) [place] % (Auto) Lymph # [place] # Baso # Seg Neutrophils % Seg Neuts % (Manual) Lymphocytes % (Manual) Monocytes % (Manual) Eosinophils % (Manual) Basophils % (Manual) Nucleated RBC % Seg Neutrophils # Seg Neutrophils # Man Lymphocytes # (Manual) Monocytes # (Manual) Eosinophils # (Manual) Basophils # (Manual) PT INR Fibrinogen dRVVT Confirm Interp Factor V Activity POC ABG pH POC ABG pCO2 POC ABG pO2 ABG pO2 ABG HCO3 ABG Base Excess ABG Hemoglobin Oxyhemoglobin Sodium Potassium Chloride Carbon Dioxide BUN 102 H 72 H Creatinine 1.9 H 1.5 H Glucose 120 H POC Glucose 156 H Lactic Acid Calcium Ionized Calcium Phosphorus Magnesium Direct Bilirubin AST ALT Alkaline Phosphatase Lactate Dehydrogenase Troponin T C-Reactive Protein Total Protein Albumin Prealbumin Triglycerides Cholesterol LDL Cholesterol Direct HDL Cholesterol 25-OH Vitamin D Total PTH Intact Urine pH Urine WBC (Auto) Urine Creatinine Urine Total Protein Fluid Total Protein Vancomycin Trough Rheumatoid Factor Complement C4 Miscellaneous Test Crossmatch 02/02/17 02/02/17 02/03/17 10:16 12:11 00:08 WBC 12.0 H RBC 3.08 L Hgb 8.3 L Hct 25.6 L MCV MCH 27 L MCHC RDW 18.2 H Plt Count Lymph % (Auto) [place] % (Auto) Lymph # [place] # Baso # Seg Neutrophils % 78.4 H Seg Neuts % (Manual) Lymphocytes % (Manual) Monocytes % (Manual) Eosinophils % (Manual) Basophils % (Manual) Nucleated RBC % Seg Neutrophils # 9.4 H Seg Neutrophils # Man Lymphocytes # (Manual) Monocytes # (Manual) Eosinophils # (Manual) Basophils # (Manual) PT INR Fibrinogen dRVVT Confirm Interp Factor V Activity POC ABG pH POC ABG pCO2 POC ABG pO2 ABG pO2 ABG HCO3 ABG Base Excess ABG Hemoglobin Oxyhemoglobin Sodium Potassium Chloride Carbon Dioxide BUN Creatinine Glucose POC Glucose 110 H 120 H Lactic Acid Calcium Ionized Calcium Phosphorus Magnesium Direct Bilirubin AST ALT Alkaline Phosphatase Lactate Dehydrogenase Troponin T C-Reactive Protein Total Protein Albumin Prealbumin Triglycerides Cholesterol LDL Cholesterol Direct HDL Cholesterol 25-OH Vitamin D Total PTH Intact Urine pH Urine WBC (Auto) Urine Creatinine Urine Total Protein Fluid Total Protein Vancomycin Trough Rheumatoid Factor Complement C4 Miscellaneous Test Crossmatch 02/03/17 02/03/17 02/03/17 05:41 07:38 11:31 WBC RBC Hgb Hct MCV MCH MCHC RDW Plt Count Lymph % (Auto) [place] % (Auto) Lymph # [place] # Baso # Seg Neutrophils % Seg Neuts % (Manual) Lymphocytes % (Manual) Monocytes % (Manual) Eosinophils % (Manual) Basophils % (Manual) Nucleated RBC % Seg Neutrophils # Seg Neutrophils # Man Lymphocytes # (Manual) Monocytes # (Manual) Eosinophils # (Manual) Basophils # (Manual) PT INR Fibrinogen dRVVT Confirm Interp Factor V Activity POC ABG pH POC ABG pCO2 POC ABG pO2 ABG pO2 ABG HCO3 ABG Base Excess ABG Hemoglobin Oxyhemoglobin Sodium 134 L Potassium Chloride Carbon Dioxide 21 L BUN 91 H Creatinine 1.9 H Glucose 110 H POC Glucose 119 H 119 H Lactic Acid Calcium 10.3 H Ionized Calcium Phosphorus Magnesium Direct Bilirubin AST ALT Alkaline Phosphatase Lactate Dehydrogenase Troponin T C-Reactive Protein Total Protein Albumin Prealbumin Triglycerides Cholesterol LDL Cholesterol Direct HDL Cholesterol 25-OH Vitamin D Total PTH Intact Urine pH Urine WBC (Auto) Urine Creatinine Urine Total Protein Fluid Total Protein Vancomycin Trough Rheumatoid Factor Complement C4 Miscellaneous Test Crossmatch 02/03/17 02/04/17 02/04/17 17:13 04:00 05:18 WBC RBC Hgb Hct MCV MCH MCHC RDW Plt Count Lymph % (Auto) [place] % (Auto) Lymph # [place] # Baso # Seg Neutrophils % Seg Neuts % (Manual) Lymphocytes % (Manual) Monocytes % (Manual) Eosinophils % (Manual) Basophils % (Manual) Nucleated RBC % Seg Neutrophils # Seg Neutrophils # Man Lymphocytes # (Manual) Monocytes # (Manual) Eosinophils # (Manual) Basophils # (Manual) PT INR Fibrinogen dRVVT Confirm Interp Factor V Activity POC ABG pH POC ABG pCO2 POC ABG pO2 ABG pO2 ABG HCO3 ABG Base Excess ABG Hemoglobin Oxyhemoglobin Sodium 136 L Potassium Chloride Carbon Dioxide BUN 58 H Creatinine 1.3 H Glucose 103 H POC Glucose 133 H 132 H Lactic Acid Calcium Ionized Calcium Phosphorus 2.00 L D Magnesium 1.60 L Direct Bilirubin AST ALT Alkaline Phosphatase Lactate Dehydrogenase Troponin T C-Reactive Protein Total Protein Albumin Prealbumin Triglycerides Cholesterol LDL Cholesterol Direct HDL Cholesterol 25-OH Vitamin D Total PTH Intact Urine pH Urine WBC (Auto) Urine Creatinine Urine Total Protein Fluid Total Protein Vancomycin Trough Rheumatoid Factor Complement C4 Miscellaneous Test Crossmatch 02/05/17 02/05/17 02/05/17 00:01 04:00 06:42 WBC RBC Hgb Hct MCV MCH MCHC RDW Plt Count Lymph % (Auto) [place] % (Auto) Lymph # [place] # Baso # Seg Neutrophils % Seg Neuts % (Manual) Lymphocytes % (Manual) Monocytes % (Manual) Eosinophils % (Manual) Basophils % (Manual) Nucleated RBC % Seg Neutrophils # Seg Neutrophils # Man Lymphocytes # (Manual) Monocytes # (Manual) Eosinophils # (Manual) Basophils # (Manual) PT INR Fibrinogen dRVVT Confirm Interp Factor V Activity POC ABG pH POC ABG pCO2 POC ABG pO2 ABG pO2 ABG HCO3 ABG Base Excess ABG Hemoglobin Oxyhemoglobin Sodium Potassium Chloride Carbon Dioxide BUN 83 H Creatinine 1.8 H Glucose POC Glucose 119 H 110 H Lactic Acid Calcium 10.7 H Ionized Calcium Phosphorus Magnesium Direct Bilirubin AST ALT Alkaline Phosphatase Lactate Dehydrogenase Troponin T C-Reactive Protein Total Protein Albumin Prealbumin Triglycerides Cholesterol LDL Cholesterol Direct HDL Cholesterol 25-OH Vitamin D Total PTH Intact Urine pH Urine WBC (Auto) Urine Creatinine Urine Total Protein Fluid Total Protein Vancomycin Trough Rheumatoid Factor Complement C4 Miscellaneous Test Crossmatch 12/17/17 12/17/17 12/17/17 09:59 11:47 23:44 WBC RBC 2.69 L Hgb 7.2 L Hct 22.5 L MCV MCH 27 L MCHC RDW 18.6 H Plt Count Lymph % (Auto) [place] % (Auto) 9.2 H Lymph # [place] # 0.9 H Baso # Seg Neutrophils % Seg Neuts % (Manual) Lymphocytes % (Manual) Monocytes % (Manual) Eosinophils % (Manual) Basophils % (Manual) Nucleated RBC % Seg Neutrophils # Seg Neutrophils # Man Lymphocytes # (Manual) Monocytes # (Manual) Eosinophils # (Manual) Basophils # (Manual) PT INR Fibrinogen dRVVT Confirm Interp Factor V Activity POC ABG pH POC ABG pCO2 POC ABG pO2 ABG pO2 ABG HCO3 ABG Base Excess ABG Hemoglobin Oxyhemoglobin Sodium Potassium Chloride Carbon Dioxide BUN Creatinine Glucose POC Glucose 130 H 123 H Lactic Acid Calcium Ionized Calcium Phosphorus Magnesium Direct Bilirubin AST ALT Alkaline Phosphatase Lactate Dehydrogenase Troponin T C-Reactive Protein Total Protein Albumin Prealbumin Triglycerides Cholesterol LDL Cholesterol Direct HDL Cholesterol 25-OH Vitamin D Total PTH Intact Urine pH Urine WBC (Auto) Urine Creatinine Urine Total Protein Fluid Total Protein Vancomycin Trough Rheumatoid Factor Complement C4 Miscellaneous Test Crossmatch 02/06/17 02/06/17 02/06/17 04:45 05:58 12:01 WBC RBC Hgb Hct MCV MCH MCHC RDW Plt Count Lymph % (Auto) [place] % (Auto) Lymph # [place] # Baso # Seg Neutrophils % Seg Neuts % (Manual) Lymphocytes % (Manual) Monocytes % (Manual) Eosinophils % (Manual) Basophils % (Manual) Nucleated RBC % Seg Neutrophils # Seg Neutrophils # Man Lymphocytes # (Manual) Monocytes # (Manual) Eosinophils # (Manual) Basophils # (Manual) PT INR Fibrinogen dRVVT Confirm Interp Factor V Activity POC ABG pH POC ABG pCO2 POC ABG pO2 ABG pO2 ABG HCO3 ABG Base Excess ABG Hemoglobin Oxyhemoglobin Sodium Potassium Chloride Carbon Dioxide BUN 101 H Creatinine 2.0 H Glucose 102 H POC Glucose 115 H 132 H Lactic Acid Calcium 10.6 H Ionized Calcium Phosphorus Magnesium Direct Bilirubin AST ALT Alkaline Phosphatase 199 H Lactate Dehydrogenase Troponin T C-Reactive Protein Total Protein Albumin 1.4 L Prealbumin Triglycerides Cholesterol LDL Cholesterol Direct HDL Cholesterol 25-OH Vitamin D Total PTH Intact Urine pH Urine WBC (Auto) Urine Creatinine Urine Total Protein Fluid Total Protein Vancomycin Trough Rheumatoid Factor Complement C4 Miscellaneous Test Crossmatch 02/06/17 02/06/17 02/07/17 17:41 23:32 05:04 WBC RBC Hgb Hct MCV MCH MCHC RDW Plt Count Lymph % (Auto) [place] % (Auto) Lymph # [place] # Baso # Seg Neutrophils % Seg Neuts % (Manual) Lymphocytes % (Manual) Monocytes % (Manual) Eosinophils % (Manual) Basophils % (Manual) Nucleated RBC % Seg Neutrophils # Seg Neutrophils # Man Lymphocytes # (Manual) Monocytes # (Manual) Eosinophils # (Manual) Basophils # (Manual) PT INR Fibrinogen dRVVT Confirm Interp Factor V Activity POC ABG pH POC ABG pCO2 POC ABG pO2 ABG pO2 ABG HCO3 ABG Base Excess ABG Hemoglobin Oxyhemoglobin Sodium Potassium Chloride Carbon Dioxide BUN Creatinine Glucose POC Glucose 134 H 128 H 119 H Lactic Acid Calcium Ionized Calcium Phosphorus Magnesium Direct Bilirubin AST ALT Alkaline Phosphatase Lactate Dehydrogenase Troponin T C-Reactive Protein Total Protein Albumin Prealbumin Triglycerides Cholesterol LDL Cholesterol Direct HDL Cholesterol 25-OH Vitamin D Total PTH Intact Urine pH Urine WBC (Auto) Urine Creatinine Urine Total Protein Fluid Total Protein Vancomycin Trough Rheumatoid Factor Complement C4 Miscellaneous Test Crossmatch 02/07/17 02/07/17 02/07/17 06:30 11:20 17:13 WBC RBC Hgb Hct MCV MCH MCHC RDW Plt Count Lymph % (Auto) [place] % (Auto) Lymph # [place] # Baso # Seg Neutrophils % Seg Neuts % (Manual) Lymphocytes % (Manual) Monocytes % (Manual) Eosinophils % (Manual) Basophils % (Manual) Nucleated RBC % Seg Neutrophils # Seg Neutrophils # Man Lymphocytes # (Manual) Monocytes # (Manual) Eosinophils # (Manual) Basophils # (Manual) PT INR Fibrinogen dRVVT Confirm Interp Factor V Activity POC ABG pH POC ABG pCO2 POC ABG pO2 ABG pO2 ABG HCO3 ABG Base Excess ABG Hemoglobin Oxyhemoglobin Sodium Potassium 3.4 L Chloride Carbon Dioxide BUN 69 H Creatinine 1.5 H Glucose 105 H POC Glucose 117 H 110 H Lactic Acid Calcium Ionized Calcium Phosphorus Magnesium 1.50 L Direct Bilirubin AST ALT Alkaline Phosphatase Lactate Dehydrogenase Troponin T C-Reactive Protein Total Protein Albumin Prealbumin Triglycerides Cholesterol LDL Cholesterol Direct HDL Cholesterol 25-OH Vitamin D Total PTH Intact Urine pH Urine WBC (Auto) Urine Creatinine Urine Total Protein Fluid Total Protein Vancomycin Trough Rheumatoid Factor Complement C4 Miscellaneous Test Crossmatch 02/07/17 02/08/1717 20:47 04:00 11:43 WBC RBC Hgb Hct MCV MCH MCHC RDW Plt Count Lymph % (Auto) [place] % (Auto) Lymph # [place] # Baso # Seg Neutrophils % Seg Neuts % (Manual) Lymphocytes % (Manual) Monocytes % (Manual) Eosinophils % (Manual) Basophils % (Manual) Nucleated RBC % Seg Neutrophils # Seg Neutrophils # Man Lymphocytes # (Manual) Monocytes # (Manual) Eosinophils # (Manual) Basophils # (Manual) PT INR Fibrinogen dRVVT Confirm Interp Factor V Activity POC ABG pH POC ABG pCO2 POC ABG pO2 ABG pO2 ABG HCO3 ABG Base Excess ABG Hemoglobin Oxyhemoglobin Sodium Potassium Chloride Carbon Dioxide BUN 86 H Creatinine 1.7 H Glucose POC Glucose 115 H 122 H Lactic Acid Calcium Ionized Calcium Phosphorus Magnesium 1.60 L Direct Bilirubin AST ALT Alkaline Phosphatase Lactate Dehydrogenase Troponin T C-Reactive Protein Total Protein Albumin Prealbumin Triglycerides Cholesterol LDL Cholesterol Direct HDL Cholesterol 25-OH Vitamin D Total PTH Intact Urine pH Urine WBC (Auto) Urine Creatinine Urine Total Protein Fluid Total Protein Vancomycin Trough Rheumatoid Factor Complement C4 Miscellaneous Test Crossmatch 02/08/17 02/09/17 02/09/17 17:36 05:44 11:30 WBC RBC Hgb Hct MCV MCH MCHC RDW Plt Count Lymph % (Auto) [place] % (Auto) Lymph # [place] # Baso # Seg Neutrophils % Seg Neuts % (Manual) Lymphocytes % (Manual) Monocytes % (Manual) Eosinophils % (Manual) Basophils % (Manual) Nucleated RBC % Seg Neutrophils # Seg Neutrophils # Man Lymphocytes # (Manual) Monocytes # (Manual) Eosinophils # (Manual) Basophils # (Manual) PT INR Fibrinogen dRVVT Confirm Interp Factor V Activity POC ABG pH POC ABG pCO2 POC ABG pO2 ABG pO2 ABG HCO3 ABG Base Excess ABG Hemoglobin Oxyhemoglobin Sodium Potassium Chloride Carbon Dioxide BUN Creatinine Glucose POC Glucose 125 H 117 H 120 H Lactic Acid Calcium Ionized Calcium Phosphorus Magnesium Direct Bilirubin AST ALT Alkaline Phosphatase Lactate Dehydrogenase Troponin T C-Reactive Protein Total Protein Albumin Prealbumin Triglycerides Cholesterol LDL Cholesterol Direct HDL Cholesterol 25-OH Vitamin D Total PTH Intact Urine pH Urine WBC (Auto) Urine Creatinine Urine Total Protein Fluid Total Protein Vancomycin Trough Rheumatoid Factor Complement C4 Miscellaneous Test Crossmatch 02/09/17 02/10/17 02/10/17 23:45 05:45 05:50 WBC RBC Hgb Hct MCV MCH MCHC RDW Plt Count Lymph % (Auto) [place] % (Auto) Lymph # [place] # Baso # Seg Neutrophils % Seg Neuts % (Manual) Lymphocytes % (Manual) Monocytes % (Manual) Eosinophils % (Manual) Basophils % (Manual) Nucleated RBC % Seg Neutrophils # Seg Neutrophils # Man Lymphocytes # (Manual) Monocytes # (Manual) Eosinophils # (Manual) Basophils # (Manual) PT INR Fibrinogen dRVVT Confirm Interp Factor V Activity POC ABG pH POC ABG pCO2 POC ABG pO2 ABG pO2 ABG HCO3 ABG Base Excess ABG Hemoglobin Oxyhemoglobin Sodium Potassium Chloride Carbon Dioxide BUN 85 H Creatinine 1.8 H Glucose 109 H POC Glucose 114 H 189 H Lactic Acid Calcium Ionized Calcium Phosphorus Magnesium 2.50 H Direct Bilirubin AST ALT Alkaline Phosphatase Lactate Dehydrogenase Troponin T C-Reactive Protein Total Protein Albumin Prealbumin Triglycerides Cholesterol LDL Cholesterol Direct HDL Cholesterol 25-OH Vitamin D Total PTH Intact Urine pH Urine WBC (Auto) Urine Creatinine Urine Total Protein Fluid Total Protein Vancomycin Trough Rheumatoid Factor Complement C4 Miscellaneous Test Crossmatch 02/10/17 02/10/17 02/10/17 05:51 11:55 17:42 WBC RBC Hgb Hct MCV MCH MCHC RDW Plt Count Lymph % (Auto) [place] % (Auto) Lymph # [place] # Baso # Seg Neutrophils % Seg Neuts % (Manual) Lymphocytes % (Manual) Monocytes % (Manual) Eosinophils % (Manual) Basophils % (Manual) Nucleated RBC % Seg Neutrophils # Seg Neutrophils # Man Lymphocytes # (Manual) Monocytes # (Manual) Eosinophils # (Manual) Basophils # (Manual) PT INR Fibrinogen dRVVT Confirm Interp Factor V Activity POC ABG pH POC ABG pCO2 POC ABG pO2 ABG pO2 ABG HCO3 ABG Base Excess ABG Hemoglobin Oxyhemoglobin Sodium Potassium Chloride Carbon Dioxide BUN Creatinine Glucose POC Glucose 106 H 146 H 132 H Lactic Acid Calcium Ionized Calcium Phosphorus Magnesium Direct Bilirubin AST ALT Alkaline Phosphatase Lactate Dehydrogenase Troponin T C-Reactive Protein Total Protein Albumin Prealbumin Triglycerides Cholesterol LDL Cholesterol Direct HDL Cholesterol 25-OH Vitamin D Total PTH Intact Urine pH Urine WBC (Auto) Urine Creatinine Urine Total Protein Fluid Total Protein Vancomycin Trough Rheumatoid Factor Complement C4 Miscellaneous Test Crossmatch 02/10/17 02/11/17 02/11/17 23:43 04:08 05:34 WBC RBC Hgb Hct MCV MCH MCHC RDW Plt Count Lymph % (Auto) [place] % (Auto) Lymph # [place] # Baso # Seg Neutrophils % Seg Neuts % (Manual) Lymphocytes % (Manual) Monocytes % (Manual) Eosinophils % (Manual) Basophils % (Manual) Nucleated RBC % Seg Neutrophils # Seg Neutrophils # Man Lymphocytes # (Manual) Monocytes # (Manual) Eosinophils # (Manual) Basophils # (Manual) PT INR Fibrinogen dRVVT Confirm Interp Factor V Activity POC ABG pH POC ABG pCO2 POC ABG pO2 ABG pO2 ABG HCO3 ABG Base Excess ABG Hemoglobin Oxyhemoglobin Sodium 136 L Potassium Chloride Carbon Dioxide BUN 65 H Creatinine 1.7 H Glucose 105 H POC Glucose 130 H 113 H Lactic Acid Calcium Ionized Calcium Phosphorus Magnesium Direct Bilirubin AST ALT Alkaline Phosphatase Lactate Dehydrogenase Troponin T C-Reactive Protein Total Protein Albumin Prealbumin Triglycerides Cholesterol LDL Cholesterol Direct HDL Cholesterol 25-OH Vitamin D Total PTH Intact Urine pH Urine WBC (Auto) Urine Creatinine Urine Total Protein Fluid Total Protein Vancomycin Trough Rheumatoid Factor Complement C4 Miscellaneous Test Crossmatch 02/11/17 02/11/17 02/12/17 11:56 23:18 06:19 WBC RBC Hgb Hct MCV MCH MCHC RDW Plt Count Lymph % (Auto) [place] % (Auto) Lymph # [place] # Baso # Seg Neutrophils % Seg Neuts % (Manual) Lymphocytes % (Manual) Monocytes % (Manual) Eosinophils % (Manual) Basophils % (Manual) Nucleated RBC % Seg Neutrophils # Seg Neutrophils # Man Lymphocytes # (Manual) Monocytes # (Manual) Eosinophils # (Manual) Basophils # (Manual) PT INR Fibrinogen dRVVT Confirm Interp Factor V Activity POC ABG pH POC ABG pCO2 POC ABG pO2 ABG pO2 ABG HCO3 ABG Base Excess ABG Hemoglobin Oxyhemoglobin Sodium 136 L Potassium Chloride 97.1 L Carbon Dioxide BUN 93 H Creatinine 2.4 H Glucose POC Glucose 126 H 119 H Lactic Acid Calcium 11.0 H Ionized Calcium Phosphorus Magnesium Direct Bilirubin AST ALT Alkaline Phosphatase Lactate Dehydrogenase Troponin T C-Reactive Protein Total Protein Albumin Prealbumin Triglycerides Cholesterol LDL Cholesterol Direct HDL Cholesterol 25-OH Vitamin D Total PTH Intact Urine pH Urine WBC (Auto) Urine Creatinine Urine Total Protein Fluid Total Protein Vancomycin Trough Rheumatoid Factor Complement C4 Miscellaneous Test Crossmatch 02/12/17 02/12/17 02/12/17 08:00 10:25 11:42 WBC 15.4 H RBC 2.63 L Hgb 6.9 L Hct 22.6 L MCV MCH 26 L MCHC RDW 20.5 H Plt Count Lymph % (Auto) [place] % (Auto) Lymph # [place] # Baso # Seg Neutrophils % Seg Neuts % (Manual) Lymphocytes % (Manual) Monocytes % (Manual) Eosinophils % (Manual) Basophils % (Manual) Nucleated RBC % Seg Neutrophils # Seg Neutrophils # Man Lymphocytes # (Manual) Monocytes # (Manual) Eosinophils # (Manual) Basophils # (Manual) PT INR Fibrinogen dRVVT Confirm Interp Factor V Activity POC ABG pH POC ABG pCO2 POC ABG pO2 ABG pO2 ABG HCO3 ABG Base Excess ABG Hemoglobin Oxyhemoglobin Sodium Potassium Chloride Carbon Dioxide BUN Creatinine Glucose POC Glucose 142 H Lactic Acid Calcium Ionized Calcium Phosphorus Magnesium Direct Bilirubin AST ALT Alkaline Phosphatase Lactate Dehydrogenase Troponin T C-Reactive Protein Total Protein Albumin Prealbumin Triglycerides Cholesterol LDL Cholesterol Direct HDL Cholesterol 25-OH Vitamin D Total PTH Intact Urine pH Urine WBC (Auto) Urine Creatinine Urine Total Protein Fluid Total Protein Vancomycin Trough Rheumatoid Factor Complement C4 Miscellaneous Test Crossmatch See Detail 02/12/17 02/13/17 02/13/17 18:04 00:04 05:00 WBC RBC Hgb Hct MCV MCH MCHC RDW Plt Count Lymph % (Auto) [place] % (Auto) Lymph # [place] # Baso # Seg Neutrophils % Seg Neuts % (Manual) Lymphocytes % (Manual) Monocytes % (Manual) Eosinophils % (Manual) Basophils % (Manual) Nucleated RBC % Seg Neutrophils # Seg Neutrophils # Man Lymphocytes # (Manual) Monocytes # (Manual) Eosinophils # (Manual) Basophils # (Manual) PT INR Fibrinogen dRVVT Confirm Interp Factor V Activity POC ABG pH POC ABG pCO2 POC ABG pO2 ABG pO2 ABG HCO3 ABG Base Excess ABG Hemoglobin Oxyhemoglobin Sodium 134 L Potassium Chloride 96.1 L Carbon Dioxide 20 L BUN 125 H Creatinine 3.0 H Glucose 111 H POC Glucose 135 H 109 H Lactic Acid Calcium 11.3 H Ionized Calcium Phosphorus Magnesium Direct Bilirubin AST ALT Alkaline Phosphatase Lactate Dehydrogenase Troponin T C-Reactive Protein Total Protein Albumin Prealbumin Triglycerides Cholesterol LDL Cholesterol Direct HDL Cholesterol 25-OH Vitamin D Total PTH Intact Urine pH Urine WBC (Auto) Urine Creatinine Urine Total Protein Fluid Total Protein Vancomycin Trough Rheumatoid Factor Complement C4 Miscellaneous Test Crossmatch 02/13/17 02/13/17 02/13/17 05:00 05:28 12:03 WBC 11.9 H RBC 2.92 L Hgb 7.8 L Hct 25.2 L MCV MCH 27 L MCHC RDW 19.3 H Plt Count Lymph % (Auto) [place] % (Auto) Lymph # [place] # Baso # Seg Neutrophils % Seg Neuts % (Manual) Lymphocytes % (Manual) Monocytes % (Manual) Eosinophils % (Manual) Basophils % (Manual) Nucleated RBC % Seg Neutrophils # Seg Neutrophils # Man Lymphocytes # (Manual) Monocytes # (Manual) Eosinophils # (Manual) Basophils # (Manual) PT INR Fibrinogen dRVVT Confirm Interp Factor V Activity POC ABG pH POC ABG pCO2 POC ABG pO2 ABG pO2 ABG HCO3 ABG Base Excess ABG Hemoglobin Oxyhemoglobin Sodium Potassium Chloride Carbon Dioxide BUN Creatinine Glucose POC Glucose 124 H 160 H Lactic Acid Calcium Ionized Calcium Phosphorus Magnesium Direct Bilirubin AST ALT Alkaline Phosphatase Lactate Dehydrogenase Troponin T C-Reactive Protein Total Protein Albumin Prealbumin Triglycerides Cholesterol LDL Cholesterol Direct HDL Cholesterol 25-OH Vitamin D Total PTH Intact Urine pH Urine WBC (Auto) Urine Creatinine Urine Total Protein Fluid Total Protein Vancomycin Trough Rheumatoid Factor Complement C4 Miscellaneous Test Crossmatch 02/13/17 02/14/17 02/14/17 18:09 06:16 08:08 WBC 15.2 H RBC 2.97 L Hgb 8.1 L Hct 26.3 L MCV MCH MCHC RDW 19.3 H Plt Count Lymph % (Auto) [place] % (Auto) Lymph # [place] # Baso # Seg Neutrophils % Seg Neuts % (Manual) Lymphocytes % (Manual) Monocytes % (Manual) Eosinophils % (Manual) Basophils % (Manual) Nucleated RBC % Seg Neutrophils # Seg Neutrophils # Man Lymphocytes # (Manual) Monocytes # (Manual) Eosinophils # (Manual) Basophils # (Manual) PT INR Fibrinogen dRVVT Confirm Interp Factor V Activity POC ABG pH POC ABG pCO2 POC ABG pO2 ABG pO2 ABG HCO3 ABG Base Excess ABG Hemoglobin Oxyhemoglobin Sodium Potassium Chloride Carbon Dioxide BUN Creatinine Glucose POC Glucose 110 H 112 H Lactic Acid Calcium Ionized Calcium Phosphorus Magnesium Direct Bilirubin AST ALT Alkaline Phosphatase Lactate Dehydrogenase Troponin T C-Reactive Protein Total Protein Albumin Prealbumin Triglycerides Cholesterol LDL Cholesterol Direct HDL Cholesterol 25-OH Vitamin D Total PTH Intact Urine pH Urine WBC (Auto) Urine Creatinine Urine Total Protein Fluid Total Protein Vancomycin Trough Rheumatoid Factor Complement C4 Miscellaneous Test Crossmatch 02/14/17 02/14/17 02/15/17 08:08 17:41 04:15 WBC RBC Hgb Hct MCV MCH MCHC RDW Plt Count Lymph % (Auto) [place] % (Auto) Lymph # [place] # Baso # Seg Neutrophils % Seg Neuts % (Manual) Lymphocytes % (Manual) Monocytes % (Manual) Eosinophils % (Manual) Basophils % (Manual) Nucleated RBC % Seg Neutrophils # Seg Neutrophils # Man Lymphocytes # (Manual) Monocytes # (Manual) Eosinophils # (Manual) Basophils # (Manual) PT INR Fibrinogen dRVVT Confirm Interp Factor V Activity POC ABG pH POC ABG pCO2 POC ABG pO2 ABG pO2 ABG HCO3 ABG Base Excess ABG Hemoglobin Oxyhemoglobin Sodium Potassium Chloride Carbon Dioxide 18 L 21 L BUN 79 H 113 H Creatinine 2.1 H 2.8 H Glucose POC Glucose 118 H Lactic Acid Calcium 10.7 H Ionized Calcium Phosphorus 1.70 L D Magnesium 1.60 L Direct Bilirubin AST ALT Alkaline Phosphatase Lactate Dehydrogenase Troponin T C-Reactive Protein Total Protein Albumin Prealbumin Triglycerides Cholesterol LDL Cholesterol Direct HDL Cholesterol 25-OH Vitamin D Total PTH Intact Urine pH Urine WBC (Auto) Urine Creatinine Urine Total Protein Fluid Total Protein Vancomycin Trough Rheumatoid Factor Complement C4 Miscellaneous Test Crossmatch 02/15/17 02/15/17 02/15/17 06:06 11:31 17:52 WBC RBC Hgb Hct MCV MCH MCHC RDW Plt Count Lymph % (Auto) [place] % (Auto) Lymph # [place] # Baso # Seg Neutrophils % Seg Neuts % (Manual) Lymphocytes % (Manual) Monocytes % (Manual) Eosinophils % (Manual) Basophils % (Manual) Nucleated RBC % Seg Neutrophils # Seg Neutrophils # Man Lymphocytes # (Manual) Monocytes # (Manual) Eosinophils # (Manual) Basophils # (Manual) PT INR Fibrinogen dRVVT Confirm Interp Factor V Activity POC ABG pH POC ABG pCO2 POC ABG pO2 ABG pO2 ABG HCO3 ABG Base Excess ABG Hemoglobin Oxyhemoglobin Sodium Potassium Chloride Carbon Dioxide BUN Creatinine Glucose POC Glucose 115 H 129 H 201 H Lactic Acid Calcium Ionized Calcium Phosphorus Magnesium Direct Bilirubin AST ALT Alkaline Phosphatase Lactate Dehydrogenase Troponin T C-Reactive Protein Total Protein Albumin Prealbumin Triglycerides Cholesterol LDL Cholesterol Direct HDL Cholesterol 25-OH Vitamin D Total PTH Intact Urine pH Urine WBC (Auto) Urine Creatinine Urine Total Protein Fluid Total Protein Vancomycin Trough Rheumatoid Factor Complement C4 Miscellaneous Test Crossmatch 02/15/17 02/15/17 02/15/17 19:08 19:08 19:08 WBC RBC Hgb Hct MCV MCH MCHC RDW Plt Count Lymph % (Auto) [place] % (Auto) Lymph # [place] # Baso # Seg Neutrophils % Seg Neuts % (Manual) Lymphocytes % (Manual) Monocytes % (Manual) Eosinophils % (Manual) Basophils % (Manual) Nucleated RBC % Seg Neutrophils # Seg Neutrophils # Man Lymphocytes # (Manual) Monocytes # (Manual) Eosinophils # (Manual) Basophils # (Manual) PT INR Fibrinogen dRVVT Confirm Interp Factor V Activity POC ABG pH POC ABG pCO2 POC ABG pO2 ABG pO2 ABG HCO3 ABG Base Excess ABG Hemoglobin Oxyhemoglobin Sodium Potassium Chloride Carbon Dioxide BUN Creatinine Glucose POC Glucose Lactic Acid Calcium Ionized Calcium 6.0 H Phosphorus Magnesium Direct Bilirubin AST ALT Alkaline Phosphatase Lactate Dehydrogenase Troponin T C-Reactive Protein Total Protein Albumin Prealbumin Triglycerides Cholesterol LDL Cholesterol Direct HDL Cholesterol 25-OH Vitamin D Total 13 L PTH Intact 10.88 L Urine pH Urine WBC (Auto) Urine Creatinine Urine Total Protein Fluid Total Protein Vancomycin Trough Rheumatoid Factor Complement C4 Miscellaneous Test Crossmatch 02/16/17 02/16/17 02/16/17 05:12 06:00 12:39 WBC RBC Hgb Hct MCV MCH MCHC RDW Plt Count Lymph % (Auto) [place] % (Auto) Lymph # [place] # Baso # Seg Neutrophils % Seg Neuts % (Manual) Lymphocytes % (Manual) Monocytes % (Manual) Eosinophils % (Manual) Basophils % (Manual) Nucleated RBC % Seg Neutrophils # Seg Neutrophils # Man Lymphocytes # (Manual) Monocytes # (Manual) Eosinophils # (Manual) Basophils # (Manual) PT INR Fibrinogen dRVVT Confirm Interp Factor V Activity POC ABG pH POC ABG pCO2 POC ABG pO2 ABG pO2 ABG HCO3 ABG Base Excess ABG Hemoglobin Oxyhemoglobin Sodium Potassium Chloride Carbon Dioxide BUN 74 H Creatinine 1.7 H Glucose 102 H POC Glucose 125 H 109 H Lactic Acid Calcium Ionized Calcium Phosphorus 2.10 L D Magnesium Direct Bilirubin AST ALT Alkaline Phosphatase Lactate Dehydrogenase Troponin T C-Reactive Protein Total Protein Albumin Prealbumin Triglycerides Cholesterol LDL Cholesterol Direct HDL Cholesterol 25-OH Vitamin D Total PTH Intact Urine pH Urine WBC (Auto) Urine Creatinine Urine Total Protein Fluid Total Protein Vancomycin Trough Rheumatoid Factor Complement C4 Miscellaneous Test Crossmatch 12/02/16/17 02/17/17 17:31 23:57 05:30 WBC RBC Hgb Hct MCV MCH MCHC RDW Plt Count Lymph % (Auto) [place] % (Auto) Lymph # [place] # Baso # Seg Neutrophils % Seg Neuts % (Manual) Lymphocytes % (Manual) Monocytes % (Manual) Eosinophils % (Manual) Basophils % (Manual) Nucleated RBC % Seg Neutrophils # Seg Neutrophils # Man Lymphocytes # (Manual) Monocytes # (Manual) Eosinophils # (Manual) Basophils # (Manual) PT INR Fibrinogen dRVVT Confirm Interp Factor V Activity POC ABG pH POC ABG pCO2 POC ABG pO2 ABG pO2 ABG HCO3 ABG Base Excess ABG Hemoglobin Oxyhemoglobin Sodium Potassium Chloride Carbon Dioxide BUN Creatinine Glucose POC Glucose 106 H 127 H 122 H Lactic Acid Calcium Ionized Calcium Phosphorus Magnesium Direct Bilirubin AST ALT Alkaline Phosphatase Lactate Dehydrogenase Troponin T C-Reactive Protein Total Protein Albumin Prealbumin Triglycerides Cholesterol LDL Cholesterol Direct HDL Cholesterol 25-OH Vitamin D Total PTH Intact Urine pH Urine WBC (Auto) Urine Creatinine Urine Total Protein Fluid Total Protein Vancomycin Trough Rheumatoid Factor Complement C4 Miscellaneous Test Crossmatch 02/17/17 02/17/17 02/17/17 06:00 12:17 17:57 WBC RBC Hgb Hct MCV MCH MCHC RDW Plt Count Lymph % (Auto) [place] % (Auto) Lymph # [place] # Baso # Seg Neutrophils % Seg Neuts % (Manual) Lymphocytes % (Manual) Monocytes % (Manual) Eosinophils % (Manual) Basophils % (Manual) Nucleated RBC % Seg Neutrophils # Seg Neutrophils # Man Lymphocytes # (Manual) Monocytes # (Manual) Eosinophils # (Manual) Basophils # (Manual) PT INR Fibrinogen dRVVT Confirm Interp Factor V Activity POC ABG pH POC ABG pCO2 POC ABG pO2 ABG pO2 ABG HCO3 ABG Base Excess ABG Hemoglobin Oxyhemoglobin Sodium Potassium Chloride Carbon Dioxide BUN 94 H Creatinine 2.3 H Glucose 106 H POC Glucose 173 H 140 H Lactic Acid Calcium Ionized Calcium Phosphorus Magnesium Direct Bilirubin AST ALT Alkaline Phosphatase Lactate Dehydrogenase Troponin T C-Reactive Protein Total Protein Albumin Prealbumin Triglycerides Cholesterol LDL Cholesterol Direct HDL Cholesterol 25-OH Vitamin D Total PTH Intact Urine pH Urine WBC (Auto) Urine Creatinine Urine Total Protein Fluid Total Protein Vancomycin Trough Rheumatoid Factor Complement C4 Miscellaneous Test Crossmatch 02/18/17 02/18/17 02/18/17 00:20 05:30 06:14 WBC RBC Hgb Hct MCV MCH MCHC RDW Plt Count Lymph % (Auto) [place] % (Auto) Lymph # [place] # Baso # Seg Neutrophils % Seg Neuts % (Manual) Lymphocytes % (Manual) Monocytes % (Manual) Eosinophils % (Manual) Basophils % (Manual) Nucleated RBC % Seg Neutrophils # Seg Neutrophils # Man Lymphocytes # (Manual) Monocytes # (Manual) Eosinophils # (Manual) Basophils # (Manual) PT INR Fibrinogen dRVVT Confirm Interp Factor V Activity POC ABG pH POC ABG pCO2 POC ABG pO2 ABG pO2 ABG HCO3 ABG Base Excess ABG Hemoglobin Oxyhemoglobin Sodium 136 L Potassium Chloride 97.5 L Carbon Dioxide BUN 73 H Creatinine 1.9 H Glucose POC Glucose 132 H 106 H Lactic Acid Calcium Ionized Calcium Phosphorus Magnesium Direct Bilirubin AST ALT Alkaline Phosphatase Lactate Dehydrogenase Troponin T C-Reactive Protein Total Protein Albumin Prealbumin Triglycerides Cholesterol LDL Cholesterol Direct HDL Cholesterol 25-OH Vitamin D Total PTH Intact Urine pH Urine WBC (Auto) Urine Creatinine Urine Total Protein Fluid Total Protein Vancomycin Trough Rheumatoid Factor Complement C4 Miscellaneous Test Crossmatch 02/18/17 02/18/17 02/18/17 09:51 11:32 17:59 WBC 13.1 H RBC 2.77 L Hgb 7.6 L Hct 23.9 L MCV MCH MCHC RDW 19.0 H Plt Count Lymph % (Auto) [place] % (Auto) 11.1 H Lymph # [place] # 1.5 H Baso # Seg Neutrophils % Seg Neuts % (Manual) Lymphocytes % (Manual) Monocytes % (Manual) Eosinophils % (Manual) Basophils % (Manual) Nucleated RBC % Seg Neutrophils # 9.1 H Seg Neutrophils # Man Lymphocytes # (Manual) Monocytes # (Manual) Eosinophils # (Manual) Basophils # (Manual) PT INR Fibrinogen dRVVT Confirm Interp Factor V Activity POC ABG pH POC ABG pCO2 POC ABG pO2 ABG pO2 ABG HCO3 ABG Base Excess ABG Hemoglobin Oxyhemoglobin Sodium Potassium Chloride Carbon Dioxide BUN Creatinine Glucose POC Glucose 123 H 119 H Lactic Acid Calcium Ionized Calcium Phosphorus Magnesium Direct Bilirubin AST ALT Alkaline Phosphatase Lactate Dehydrogenase Troponin T C-Reactive Protein Total Protein Albumin Prealbumin Triglycerides Cholesterol LDL Cholesterol Direct HDL Cholesterol 25-OH Vitamin D Total PTH Intact Urine pH Urine WBC (Auto) Urine Creatinine Urine Total Protein Fluid Total Protein Vancomycin Trough Rheumatoid Factor Complement C4 Miscellaneous Test Crossmatch 02/18/17 02/19/17 02/19/17 23:47 05:36 09:45 WBC RBC Hgb Hct MCV MCH 27 L MCHC RDW 19.2 H Plt Count Lymph % (Auto) [place] % (Auto) Lymph # [place] # Baso # Seg Neutrophils % Seg Neuts % (Manual) Lymphocytes % (Manual) Monocytes % (Manual) Eosinophils % (Manual) Basophils % (Manual) Nucleated RBC % Seg Neutrophils # Seg Neutrophils # Man Lymphocytes # (Manual) Monocytes # (Manual) Eosinophils # (Manual) Basophils # (Manual) PT INR Fibrinogen dRVVT Confirm Interp Factor V Activity POC ABG pH POC ABG pCO2 POC ABG pO2 ABG pO2 ABG HCO3 ABG Base Excess ABG Hemoglobin Oxyhemoglobin Sodium Potassium Chloride Carbon Dioxide BUN Creatinine Glucose POC Glucose 110 H 121 H Lactic Acid Calcium Ionized Calcium Phosphorus Magnesium Direct Bilirubin AST ALT Alkaline Phosphatase Lactate Dehydrogenase Troponin T C-Reactive Protein Total Protein Albumin Prealbumin Triglycerides Cholesterol LDL Cholesterol Direct HDL Cholesterol 25-OH Vitamin D Total PTH Intact Urine pH Urine WBC (Auto) Urine Creatinine Urine Total Protein Fluid Total Protein Vancomycin Trough Rheumatoid Factor Complement C4 Miscellaneous Test Crossmatch 02/19/17 02/20/17 02/20/17 09:45 00:10 06:15 WBC RBC Hgb Hct MCV MCH MCHC RDW Plt Count Lymph % (Auto) [place] % (Auto) Lymph # [place] # Baso # Seg Neutrophils % Seg Neuts % (Manual) Lymphocytes % (Manual) Monocytes % (Manual) Eosinophils % (Manual) Basophils % (Manual) Nucleated RBC % Seg Neutrophils # Seg Neutrophils # Man Lymphocytes # (Manual) Monocytes # (Manual) Eosinophils # (Manual) Basophils # (Manual) PT INR Fibrinogen dRVVT Confirm Interp Factor V Activity POC ABG pH POC ABG pCO2 POC ABG pO2 ABG pO2 ABG HCO3 ABG Base Excess ABG Hemoglobin Oxyhemoglobin Sodium 136 L Potassium 5.1 H Chloride 97.6 L Carbon Dioxide 20 L 18 L BUN 110 H 135 H Creatinine 2.6 H 3.2 H Glucose 106 H 110 H POC Glucose 117 H Lactic Acid Calcium Ionized Calcium Phosphorus 4.70 H D 5.60 H Magnesium Direct Bilirubin AST ALT Alkaline Phosphatase Lactate Dehydrogenase Troponin T C-Reactive Protein Total Protein Albumin Prealbumin Triglycerides Cholesterol LDL Cholesterol Direct HDL Cholesterol 25-OH Vitamin D Total PTH Intact Urine pH Urine WBC (Auto) Urine Creatinine Urine Total Protein Fluid Total Protein Vancomycin Trough Rheumatoid Factor Complement C4 Miscellaneous Test Crossmatch 02/20/17 02/20/17 02/21/17 11:30 17:51 00:14 WBC RBC Hgb Hct MCV MCH MCHC RDW Plt Count Lymph % (Auto) [place] % (Auto) Lymph # [place] # Baso # Seg Neutrophils % Seg Neuts % (Manual) Lymphocytes % (Manual) Monocytes % (Manual) Eosinophils % (Manual) Basophils % (Manual) Nucleated RBC % Seg Neutrophils # Seg Neutrophils # Man Lymphocytes # (Manual) Monocytes # (Manual) Eosinophils # (Manual) Basophils # (Manual) PT INR Fibrinogen dRVVT Confirm Interp Factor V Activity POC ABG pH POC ABG pCO2 POC ABG pO2 ABG pO2 ABG HCO3 ABG Base Excess ABG Hemoglobin Oxyhemoglobin Sodium Potassium Chloride Carbon Dioxide BUN Creatinine Glucose POC Glucose 173 H 133 H 125 H Lactic Acid Calcium Ionized Calcium Phosphorus Magnesium Direct Bilirubin AST ALT Alkaline Phosphatase Lactate Dehydrogenase Troponin T C-Reactive Protein Total Protein Albumin Prealbumin Triglycerides Cholesterol LDL Cholesterol Direct HDL Cholesterol 25-OH Vitamin D Total PTH Intact Urine pH Urine WBC (Auto) Urine Creatinine Urine Total Protein Fluid Total Protein Vancomycin Trough Rheumatoid Factor Complement C4 Miscellaneous Test Crossmatch 02/21/17 02/21/17 02/21/17 04:09 05:03 11:58 WBC RBC Hgb Hct MCV MCH MCHC RDW Plt Count Lymph % (Auto) [place] % (Auto) Lymph # [place] # Baso # Seg Neutrophils % Seg Neuts % (Manual) Lymphocytes % (Manual) Monocytes % (Manual) Eosinophils % (Manual) Basophils % (Manual) Nucleated RBC % Seg Neutrophils # Seg Neutrophils # Man Lymphocytes # (Manual) Monocytes # (Manual) Eosinophils # (Manual) Basophils # (Manual) PT INR Fibrinogen dRVVT Confirm Interp Factor V Activity POC ABG pH POC ABG pCO2 POC ABG pO2 ABG pO2 ABG HCO3 ABG Base Excess ABG Hemoglobin Oxyhemoglobin Sodium 135 L Potassium Chloride Carbon Dioxide 20 L BUN 76 H Creatinine 2.0 H Glucose 125 H POC Glucose 134 H 139 H Lactic Acid Calcium Ionized Calcium Phosphorus Magnesium Direct Bilirubin AST ALT Alkaline Phosphatase Lactate Dehydrogenase Troponin T C-Reactive Protein Total Protein Albumin Prealbumin Triglycerides Cholesterol LDL Cholesterol Direct HDL Cholesterol 25-OH Vitamin D Total PTH Intact Urine pH Urine WBC (Auto) Urine Creatinine Urine Total Protein Fluid Total Protein Vancomycin Trough Rheumatoid Factor Complement C4 Miscellaneous Test Crossmatch 02/21/17 02/21/17 02/22/17 17:16 23:41 04:10 WBC RBC Hgb Hct MCV MCH MCHC RDW Plt Count Lymph % (Auto) [place] % (Auto) Lymph # [place] # Baso # Seg Neutrophils % Seg Neuts % (Manual) Lymphocytes % (Manual) Monocytes % (Manual) Eosinophils % (Manual) Basophils % (Manual) Nucleated RBC % Seg Neutrophils # Seg Neutrophils # Man Lymphocytes # (Manual) Monocytes # (Manual) Eosinophils # (Manual) Basophils # (Manual) PT INR Fibrinogen dRVVT Confirm Interp Factor V Activity POC ABG pH POC ABG pCO2 POC ABG pO2 ABG pO2 ABG HCO3 ABG Base Excess ABG Hemoglobin Oxyhemoglobin Sodium 135 L Potassium Chloride 97.7 L Carbon Dioxide 21 L BUN 101 H Creatinine 2.5 H Glucose 116 H POC Glucose 120 H 128 H Lactic Acid Calcium Ionized Calcium Phosphorus Magnesium Direct Bilirubin AST ALT Alkaline Phosphatase Lactate Dehydrogenase Troponin T C-Reactive Protein Total Protein Albumin 1.3 L Prealbumin Triglycerides Cholesterol LDL Cholesterol Direct HDL Cholesterol 25-OH Vitamin D Total PTH Intact Urine pH Urine WBC (Auto) Urine Creatinine Urine Total Protein Fluid Total Protein Vancomycin Trough Rheumatoid Factor Complement C4 Miscellaneous Test Crossmatch 02/22/17 02/22/17 02/22/17 06:03 11:38 18:19 WBC RBC Hgb Hct MCV MCH MCHC RDW Plt Count Lymph % (Auto) [place] % (Auto) Lymph # [place] # Baso # Seg Neutrophils % Seg Neuts % (Manual) Lymphocytes % (Manual) Monocytes % (Manual) Eosinophils % (Manual) Basophils % (Manual) Nucleated RBC % Seg Neutrophils # Seg Neutrophils # Man Lymphocytes # (Manual) Monocytes # (Manual) Eosinophils # (Manual) Basophils # (Manual) PT INR Fibrinogen dRVVT Confirm Interp Factor V Activity POC ABG pH POC ABG pCO2 POC ABG pO2 ABG pO2 ABG HCO3 ABG Base Excess ABG Hemoglobin Oxyhemoglobin Sodium Potassium Chloride Carbon Dioxide BUN Creatinine Glucose POC Glucose 126 H 147 H 121 H Lactic Acid Calcium Ionized Calcium Phosphorus Magnesium Direct Bilirubin AST ALT Alkaline Phosphatase Lactate Dehydrogenase Troponin T C-Reactive Protein Total Protein Albumin Prealbumin Triglycerides Cholesterol LDL Cholesterol Direct HDL Cholesterol 25-OH Vitamin D Total PTH Intact Urine pH Urine WBC (Auto) Urine Creatinine Urine Total Protein Fluid Total Protein Vancomycin Trough Rheumatoid Factor Complement C4 Miscellaneous Test Crossmatch 02/23/17 02/23/17 02/23/17 05:00 05:46 12:27 WBC RBC Hgb Hct MCV MCH MCHC RDW Plt Count Lymph % (Auto) [place] % (Auto) Lymph # [place] # Baso # Seg Neutrophils % Seg Neuts % (Manual) Lymphocytes % (Manual) Monocytes % (Manual) Eosinophils % (Manual) Basophils % (Manual) Nucleated RBC % Seg Neutrophils # Seg Neutrophils # Man Lymphocytes # (Manual) Monocytes # (Manual) Eosinophils # (Manual) Basophils # (Manual) PT INR Fibrinogen dRVVT Confirm Interp Factor V Activity POC ABG pH POC ABG pCO2 POC ABG pO2 ABG pO2 ABG HCO3 ABG Base Excess ABG Hemoglobin Oxyhemoglobin Sodium 136 L Potassium Chloride 97.1 L Carbon Dioxide BUN 50 H Creatinine 1.5 H Glucose POC Glucose 110 H 115 H Lactic Acid Calcium 8.1 L Ionized Calcium Phosphorus 1.90 L D Magnesium Direct Bilirubin AST ALT Alkaline Phosphatase Lactate Dehydrogenase Troponin T C-Reactive Protein Total Protein Albumin Prealbumin Triglycerides Cholesterol LDL Cholesterol Direct HDL Cholesterol 25-OH Vitamin D Total PTH Intact Urine pH Urine WBC (Auto) Urine Creatinine Urine Total Protein Fluid Total Protein Vancomycin Trough Rheumatoid Factor Complement C4 Miscellaneous Test Crossmatch 02/23/17 02/23/17 02/24/17 18:02 23:18 05:04 WBC RBC Hgb Hct MCV MCH MCHC RDW Plt Count Lymph % (Auto) [place] % (Auto) Lymph # [place] # Baso # Seg Neutrophils % Seg Neuts % (Manual) Lymphocytes % (Manual) Monocytes % (Manual) Eosinophils % (Manual) Basophils % (Manual) Nucleated RBC % Seg Neutrophils # Seg Neutrophils # Man Lymphocytes # (Manual) Monocytes # (Manual) Eosinophils # (Manual) Basophils # (Manual) PT INR Fibrinogen dRVVT Confirm Interp Factor V Activity POC ABG pH POC ABG pCO2 POC ABG pO2 ABG pO2 ABG HCO3 ABG Base Excess ABG Hemoglobin Oxyhemoglobin Sodium Potassium Chloride Carbon Dioxide BUN Creatinine Glucose POC Glucose 111 H 126 H 121 H Lactic Acid Calcium Ionized Calcium Phosphorus Magnesium Direct Bilirubin AST ALT Alkaline Phosphatase Lactate Dehydrogenase Troponin T C-Reactive Protein Total Protein Albumin Prealbumin Triglycerides Cholesterol LDL Cholesterol Direct HDL Cholesterol 25-OH Vitamin D Total PTH Intact Urine pH Urine WBC (Auto) Urine Creatinine Urine Total Protein Fluid Total Protein Vancomycin Trough Rheumatoid Factor Complement C4 Miscellaneous Test Crossmatch 01/07/0702/24/17 02/24/17 05:20 10:05 11:34 WBC RBC 2.95 L Hgb 8.4 L Hct 25.7 L MCV MCH MCHC RDW 20.8 H Plt Count Lymph % (Auto) [place] % (Auto) Lymph # [place] # Baso # Seg Neutrophils % 71.8 H Seg Neuts % (Manual) Lymphocytes % (Manual) Monocytes % (Manual) Eosinophils % (Manual) Basophils % (Manual) Nucleated RBC % Seg Neutrophils # Seg Neutrophils # Man Lymphocytes # (Manual) Monocytes # (Manual) Eosinophils # (Manual) Basophils # (Manual) PT INR Fibrinogen dRVVT Confirm Interp Factor V Activity POC ABG pH POC ABG pCO2 POC ABG pO2 ABG pO2 ABG HCO3 ABG Base Excess ABG Hemoglobin Oxyhemoglobin Sodium 136 L Potassium Chloride 95.5 L Carbon Dioxide BUN 76 H Creatinine 2.2 H Glucose 109 H POC Glucose 123 H Lactic Acid Calcium Ionized Calcium Phosphorus Magnesium Direct Bilirubin AST ALT Alkaline Phosphatase Lactate Dehydrogenase Troponin T C-Reactive Protein Total Protein Albumin Prealbumin Triglycerides Cholesterol LDL Cholesterol Direct HDL Cholesterol 25-OH Vitamin D Total PTH Intact Urine pH Urine WBC (Auto) Urine Creatinine Urine Total Protein Fluid Total Protein Vancomycin Trough Rheumatoid Factor Complement C4 Miscellaneous Test Crossmatch 02/24/17 02/24/17 02/25/17 17:43 23:02 05:00 WBC RBC Hgb Hct MCV MCH MCHC RDW Plt Count Lymph % (Auto) [place] % (Auto) Lymph # [place] # Baso # Seg Neutrophils % Seg Neuts % (Manual) Lymphocytes % (Manual) Monocytes % (Manual) Eosinophils % (Manual) Basophils % (Manual) Nucleated RBC % Seg Neutrophils # Seg Neutrophils # Man Lymphocytes # (Manual) Monocytes # (Manual) Eosinophils # (Manual) Basophils # (Manual) PT INR Fibrinogen dRVVT Confirm Interp Factor V Activity POC ABG pH POC ABG pCO2 POC ABG pO2 ABG pO2 ABG HCO3 ABG Base Excess ABG Hemoglobin Oxyhemoglobin Sodium Potassium Chloride 96.8 L Carbon Dioxide BUN 94 H Creatinine 2.8 H Glucose 118 H POC Glucose 128 H 144 H Lactic Acid Calcium Ionized Calcium Phosphorus Magnesium Direct Bilirubin AST ALT Alkaline Phosphatase Lactate Dehydrogenase Troponin T C-Reactive Protein Total Protein Albumin Prealbumin Triglycerides Cholesterol LDL Cholesterol Direct HDL Cholesterol 25-OH Vitamin D Total PTH Intact Urine pH Urine WBC (Auto) Urine Creatinine Urine Total Protein Fluid Total Protein Vancomycin Trough Rheumatoid Factor Complement C4 Miscellaneous Test Crossmatch 02/25/17 02/25/17 02/25/17 05:32 11:44 18:18 WBC RBC Hgb Hct MCV MCH MCHC RDW Plt Count Lymph % (Auto) [place] % (Auto) Lymph # [place] # Baso # Seg Neutrophils % Seg Neuts % (Manual) Lymphocytes % (Manual) Monocytes % (Manual) Eosinophils % (Manual) Basophils % (Manual) Nucleated RBC % Seg Neutrophils # Seg Neutrophils # Man Lymphocytes # (Manual) Monocytes # (Manual) Eosinophils # (Manual) Basophils # (Manual) PT INR Fibrinogen dRVVT Confirm Interp Factor V Activity POC ABG pH POC ABG pCO2 POC ABG pO2 ABG pO2 ABG HCO3 ABG Base Excess ABG Hemoglobin Oxyhemoglobin Sodium Potassium Chloride Carbon Dioxide BUN Creatinine Glucose POC Glucose 118 H 106 H 210 H Lactic Acid Calcium Ionized Calcium Phosphorus Magnesium Direct Bilirubin AST ALT Alkaline Phosphatase Lactate Dehydrogenase Troponin T C-Reactive Protein Total Protein Albumin Prealbumin Triglycerides Cholesterol LDL Cholesterol Direct HDL Cholesterol 25-OH Vitamin D Total PTH Intact Urine pH Urine WBC (Auto) Urine Creatinine Urine Total Protein Fluid Total Protein Vancomycin Trough Rheumatoid Factor Complement C4 Miscellaneous Test Crossmatch 02/26/17 02/26/17 02/26/17 00:07 05:14 12:07 WBC RBC Hgb Hct MCV MCH MCHC RDW Plt Count Lymph % (Auto) [place] % (Auto) Lymph # [place] # Baso # Seg Neutrophils % Seg Neuts % (Manual) Lymphocytes % (Manual) Monocytes % (Manual) Eosinophils % (Manual) Basophils % (Manual) Nucleated RBC % Seg Neutrophils # Seg Neutrophils # Man Lymphocytes # (Manual) Monocytes # (Manual) Eosinophils # (Manual) Basophils # (Manual) PT INR Fibrinogen dRVVT Confirm Interp Factor V Activity POC ABG pH POC ABG pCO2 POC ABG pO2 ABG pO2 ABG HCO3 ABG Base Excess ABG Hemoglobin Oxyhemoglobin Sodium Potassium Chloride Carbon Dioxide BUN Creatinine Glucose POC Glucose 136 H 142 H 132 H Lactic Acid Calcium Ionized Calcium Phosphorus Magnesium Direct Bilirubin AST ALT Alkaline Phosphatase Lactate Dehydrogenase Troponin T C-Reactive Protein Total Protein Albumin Prealbumin Triglycerides Cholesterol LDL Cholesterol Direct HDL Cholesterol 25-OH Vitamin D Total PTH Intact Urine pH Urine WBC (Auto) Urine Creatinine Urine Total Protein Fluid Total Protein Vancomycin Trough Rheumatoid Factor Complement C4 Miscellaneous Test Crossmatch 02/26/17 02/26/17 02/27/17 18:35 23:54 06:25 WBC RBC Hgb Hct MCV MCH MCHC RDW Plt Count Lymph % (Auto) [place] % (Auto) Lymph # [place] # Baso # Seg Neutrophils % Seg Neuts % (Manual) Lymphocytes % (Manual) Monocytes % (Manual) Eosinophils % (Manual) Basophils % (Manual) Nucleated RBC % Seg Neutrophils # Seg Neutrophils # Man Lymphocytes # (Manual) Monocytes # (Manual) Eosinophils # (Manual) Basophils # (Manual) PT INR Fibrinogen dRVVT Confirm Interp Factor V Activity POC ABG pH POC ABG pCO2 POC ABG pO2 ABG pO2 ABG HCO3 ABG Base Excess ABG Hemoglobin Oxyhemoglobin Sodium Potassium Chloride Carbon Dioxide BUN Creatinine Glucose POC Glucose 155 H 150 H 138 H Lactic Acid Calcium Ionized Calcium Phosphorus Magnesium Direct Bilirubin AST ALT Alkaline Phosphatase Lactate Dehydrogenase Troponin T C-Reactive Protein Total Protein Albumin Prealbumin Triglycerides Cholesterol LDL Cholesterol Direct HDL Cholesterol 25-OH Vitamin D Total PTH Intact Urine pH Urine WBC (Auto) Urine Creatinine Urine Total Protein Fluid Total Protein Vancomycin Trough Rheumatoid Factor Complement C4 Miscellaneous Test Crossmatch 02/27/17 02/27/17 02/27/17 08:50 11:50 17:38 WBC RBC Hgb Hct MCV MCH MCHC RDW Plt Count Lymph % (Auto) [place] % (Auto) Lymph # [place] # Baso # Seg Neutrophils % Seg Neuts % (Manual) Lymphocytes % (Manual) Monocytes % (Manual) Eosinophils % (Manual) Basophils % (Manual) Nucleated RBC % Seg Neutrophils # Seg Neutrophils # Man Lymphocytes # (Manual) Monocytes # (Manual) Eosinophils # (Manual) Basophils # (Manual) PT INR Fibrinogen dRVVT Confirm Interp Factor V Activity POC ABG pH POC ABG pCO2 POC ABG pO2 ABG pO2 ABG HCO3 ABG Base Excess ABG Hemoglobin Oxyhemoglobin Sodium Potassium 3.2 L Chloride Carbon Dioxide BUN 95 H Creatinine 2.7 H Glucose 179 H POC Glucose 150 H 133 H Lactic Acid Calcium Ionized Calcium Phosphorus Magnesium Direct Bilirubin AST ALT Alkaline Phosphatase Lactate Dehydrogenase Troponin T C-Reactive Protein Total Protein Albumin Prealbumin Triglycerides Cholesterol LDL Cholesterol Direct HDL Cholesterol 25-OH Vitamin D Total PTH Intact Urine pH Urine WBC (Auto) Urine Creatinine Urine Total Protein Fluid Total Protein Vancomycin Trough Rheumatoid Factor Complement C4 Miscellaneous Test Crossmatch 02/27/17 02/28/17 02/28/17 23:55 05:23 06:10 WBC RBC Hgb Hct MCV MCH MCHC RDW Plt Count Lymph % (Auto) [place] % (Auto) Lymph # [place] # Baso # Seg Neutrophils % Seg Neuts % (Manual) Lymphocytes % (Manual) Monocytes % (Manual) Eosinophils % (Manual) Basophils % (Manual) Nucleated RBC % Seg Neutrophils # Seg Neutrophils # Man Lymphocytes # (Manual) Monocytes # (Manual) Eosinophils # (Manual) Basophils # (Manual) PT INR Fibrinogen dRVVT Confirm Interp Factor V Activity POC ABG pH POC ABG pCO2 POC ABG pO2 ABG pO2 ABG HCO3 ABG Base Excess ABG Hemoglobin Oxyhemoglobin Sodium 134 L Potassium 3.0 L Chloride 94.9 L Carbon Dioxide BUN 53 H Creatinine 1.9 H Glucose 138 H POC Glucose 134 H 164 H Lactic Acid Calcium Ionized Calcium Phosphorus 2.00 L D Magnesium Direct Bilirubin AST ALT Alkaline Phosphatase Lactate Dehydrogenase Troponin T C-Reactive Protein Total Protein Albumin Prealbumin Triglycerides Cholesterol LDL Cholesterol Direct HDL Cholesterol 25-OH Vitamin D Total PTH Intact Urine pH Urine WBC (Auto) Urine Creatinine Urine Total Protein Fluid Total Protein Vancomycin Trough Rheumatoid Factor Complement C4 Miscellaneous Test Crossmatch 02/28/17 02/28/17 02/28/17 12:18 17:54 23:47 WBC RBC Hgb Hct MCV MCH MCHC RDW Plt Count Lymph % (Auto) [place] % (Auto) Lymph # [place] # Baso # Seg Neutrophils % Seg Neuts % (Manual) Lymphocytes % (Manual) Monocytes % (Manual) Eosinophils % (Manual) Basophils % (Manual) Nucleated RBC % Seg Neutrophils # Seg Neutrophils # Man Lymphocytes # (Manual) Monocytes # (Manual) Eosinophils # (Manual) Basophils # (Manual) PT INR Fibrinogen dRVVT Confirm Interp Factor V Activity POC ABG pH POC ABG pCO2 POC ABG pO2 ABG pO2 ABG HCO3 ABG Base Excess ABG Hemoglobin Oxyhemoglobin Sodium Potassium Chloride Carbon Dioxide BUN Creatinine Glucose POC Glucose 135 H 140 H 144 H Lactic Acid Calcium Ionized Calcium Phosphorus Magnesium Direct Bilirubin AST ALT Alkaline Phosphatase Lactate Dehydrogenase Troponin T C-Reactive Protein Total Protein Albumin Prealbumin Triglycerides Cholesterol LDL Cholesterol Direct HDL Cholesterol 25-OH Vitamin D Total PTH Intact Urine pH Urine WBC (Auto) Urine Creatinine Urine Total Protein Fluid Total Protein Vancomycin Trough Rheumatoid Factor Complement C4 Miscellaneous Test Crossmatch 03/01/17 03/01/17 03/01/17 04:00 12:02 17:13 WBC RBC Hgb Hct MCV MCH MCHC RDW Plt Count Lymph % (Auto) [place] % (Auto) Lymph # [place] # Baso # Seg Neutrophils % Seg Neuts % (Manual) Lymphocytes % (Manual) Monocytes % (Manual) Eosinophils % (Manual) Basophils % (Manual) Nucleated RBC % Seg Neutrophils # Seg Neutrophils # Man Lymphocytes # (Manual) Monocytes # (Manual) Eosinophils # (Manual) Basophils # (Manual) PT INR Fibrinogen dRVVT Confirm Interp Factor V Activity POC ABG pH POC ABG pCO2 POC ABG pO2 ABG pO2 ABG HCO3 ABG Base Excess ABG Hemoglobin Oxyhemoglobin Sodium Potassium 3.0 L Chloride 97.0 L Carbon Dioxide BUN 81 H Creatinine 2.6 H Glucose 121 H POC Glucose 165 H 126 H Lactic Acid Calcium Ionized Calcium Phosphorus Magnesium Direct Bilirubin AST ALT Alkaline Phosphatase Lactate Dehydrogenase Troponin T C-Reactive Protein Total Protein Albumin Prealbumin Triglycerides Cholesterol LDL Cholesterol Direct HDL Cholesterol 25-OH Vitamin D Total PTH Intact Urine pH Urine WBC (Auto) Urine Creatinine Urine Total Protein Fluid Total Protein Vancomycin Trough Rheumatoid Factor Complement C4 Miscellaneous Test Crossmatch 03/02/17 03/02/17 03/02/17 00:10 03:05 05:20 WBC RBC Hgb Hct MCV MCH MCHC RDW Plt Count Lymph % (Auto) [place] % (Auto) Lymph # [place] # Baso # Seg Neutrophils % Seg Neuts % (Manual) Lymphocytes % (Manual) Monocytes % (Manual) Eosinophils % (Manual) Basophils % (Manual) Nucleated RBC % Seg Neutrophils # Seg Neutrophils # Man Lymphocytes # (Manual) Monocytes # (Manual) Eosinophils # (Manual) Basophils # (Manual) PT INR Fibrinogen dRVVT Confirm Interp Factor V Activity POC ABG pH POC ABG pCO2 POC ABG pO2 ABG pO2 ABG HCO3 ABG Base Excess ABG Hemoglobin Oxyhemoglobin Sodium Potassium 3.0 L Chloride Carbon Dioxide BUN 41 H Creatinine 1.6 H Glucose 130 H POC Glucose 129 H 173 H Lactic Acid Calcium Ionized Calcium Phosphorus 1.70 L D Magnesium 1.40 L Direct Bilirubin AST ALT Alkaline Phosphatase Lactate Dehydrogenase Troponin T C-Reactive Protein Total Protein Albumin Prealbumin Triglycerides Cholesterol LDL Cholesterol Direct HDL Cholesterol 25-OH Vitamin D Total PTH Intact Urine pH Urine WBC (Auto) Urine Creatinine Urine Total Protein Fluid Total Protein Vancomycin Trough Rheumatoid Factor Complement C4 Miscellaneous Test Crossmatch 03/02/17 03/02/17 03/02/17 11:49 16:38 23:46 WBC RBC Hgb Hct MCV MCH MCHC RDW Plt Count Lymph % (Auto) [place] % (Auto) Lymph # [place] # Baso # Seg Neutrophils % Seg Neuts % (Manual) Lymphocytes % (Manual) Monocytes % (Manual) Eosinophils % (Manual) Basophils % (Manual) Nucleated RBC % Seg Neutrophils # Seg Neutrophils # Man Lymphocytes # (Manual) Monocytes # (Manual) Eosinophils # (Manual) Basophils # (Manual) PT INR Fibrinogen dRVVT Confirm Interp Factor V Activity POC ABG pH POC ABG pCO2 POC ABG pO2 ABG pO2 ABG HCO3 ABG Base Excess ABG Hemoglobin Oxyhemoglobin Sodium Potassium Chloride Carbon Dioxide BUN Creatinine Glucose POC Glucose 129 H 141 H 119 H Lactic Acid Calcium Ionized Calcium Phosphorus Magnesium Direct Bilirubin AST ALT Alkaline Phosphatase Lactate Dehydrogenase Troponin T C-Reactive Protein Total Protein Albumin Prealbumin Triglycerides Cholesterol LDL Cholesterol Direct HDL Cholesterol 25-OH Vitamin D Total PTH Intact Urine pH Urine WBC (Auto) Urine Creatinine Urine Total Protein Fluid Total Protein Vancomycin Trough Rheumatoid Factor Complement C4 Miscellaneous Test Crossmatch 03/03/17 03/03/17 03/03/17 04:00 11:59 18:08 WBC RBC Hgb Hct MCV MCH MCHC RDW Plt Count Lymph % (Auto) [place] % (Auto) Lymph # [place] # Baso # Seg Neutrophils % Seg Neuts % (Manual) Lymphocytes % (Manual) Monocytes % (Manual) Eosinophils % (Manual) Basophils % (Manual) Nucleated RBC % Seg Neutrophils # Seg Neutrophils # Man Lymphocytes # (Manual) Monocytes # (Manual) Eosinophils # (Manual) Basophils # (Manual) PT INR Fibrinogen dRVVT Confirm Interp Factor V Activity POC ABG pH POC ABG pCO2 POC ABG pO2 ABG pO2 ABG HCO3 ABG Base Excess ABG Hemoglobin Oxyhemoglobin Sodium Potassium Chloride Carbon Dioxide BUN 70 H Creatinine 2.3 H Glucose POC Glucose 125 H 131 H Lactic Acid Calcium Ionized Calcium Phosphorus Magnesium Direct Bilirubin AST ALT Alkaline Phosphatase Lactate Dehydrogenase Troponin T C-Reactive Protein Total Protein Albumin Prealbumin Triglycerides Cholesterol LDL Cholesterol Direct HDL Cholesterol 25-OH Vitamin D Total PTH Intact Urine pH Urine WBC (Auto) Urine Creatinine Urine Total Protein Fluid Total Protein Vancomycin Trough Rheumatoid Factor Complement C4 Miscellaneous Test Crossmatch 03/03/17 03/03/17 03/04/17 20:17 23:43 05:21 WBC RBC Hgb Hct MCV MCH MCHC RDW Plt Count Lymph % (Auto) [place] % (Auto) Lymph # [place] # Baso # Seg Neutrophils % Seg Neuts % (Manual) Lymphocytes % (Manual) Monocytes % (Manual) Eosinophils % (Manual) Basophils % (Manual) Nucleated RBC % Seg Neutrophils # Seg Neutrophils # Man Lymphocytes # (Manual) Monocytes # (Manual) Eosinophils # (Manual) Basophils # (Manual) PT INR Fibrinogen dRVVT Confirm Interp Factor V Activity POC ABG pH 7.518 H POC ABG pCO2 28.8 L POC ABG pO2 61 L ABG pO2 ABG HCO3 ABG Base Excess ABG Hemoglobin Oxyhemoglobin Sodium Potassium Chloride Carbon Dioxide BUN Creatinine Glucose POC Glucose 122 H 130 H Lactic Acid Calcium Ionized Calcium Phosphorus Magnesium Direct Bilirubin AST ALT Alkaline Phosphatase Lactate Dehydrogenase Troponin T C-Reactive Protein Total Protein Albumin Prealbumin Triglycerides Cholesterol LDL Cholesterol Direct HDL Cholesterol 25-OH Vitamin D Total PTH Intact Urine pH Urine WBC (Auto) Urine Creatinine Urine Total Protein Fluid Total Protein Vancomycin Trough Rheumatoid Factor Complement C4 Miscellaneous Test Crossmatch 03/04/17 03/05/17 03/06/17 06:10 06:15 03:52 WBC RBC Hgb Hct MCV MCH MCHC RDW Plt Count Lymph % (Auto) [place] % (Auto) Lymph # [place] # Baso # Seg Neutrophils % Seg Neuts % (Manual) Lymphocytes % (Manual) Monocytes % (Manual) Eosinophils % (Manual) Basophils % (Manual) Nucleated RBC % Seg Neutrophils # Seg Neutrophils # Man Lymphocytes # (Manual) Monocytes # (Manual) Eosinophils # (Manual) Basophils # (Manual) PT INR Fibrinogen dRVVT Confirm Interp Factor V Activity POC ABG pH POC ABG pCO2 POC ABG pO2 ABG pO2 ABG HCO3 ABG Base Excess ABG Hemoglobin Oxyhemoglobin Sodium 135 L 136 L Potassium 5.2 H 5.9 H Chloride 95.8 L 97.7 L 96.0 L Carbon Dioxide 21 L 21 L BUN 40 H 56 H 70 H Creatinine 1.7 H 2.4 H 3.0 H Glucose 118 H POC Glucose Lactic Acid Calcium Ionized Calcium Phosphorus 4.80 H D 6.00 H D Magnesium 2.60 H Direct Bilirubin AST ALT Alkaline Phosphatase 165 H Lactate Dehydrogenase Troponin T C-Reactive Protein Total Protein Albumin 1.5 L Prealbumin Triglycerides Cholesterol LDL Cholesterol Direct HDL Cholesterol 25-OH Vitamin D Total PTH Intact Urine pH Urine WBC (Auto) Urine Creatinine Urine Total Protein Fluid Total Protein Vancomycin Trough Rheumatoid Factor Complement C4 Miscellaneous Test Crossmatch 03/06/17 03/06/17 03/06/17 11:19 18:40 23:39 WBC RBC Hgb Hct MCV MCH MCHC RDW Plt Count Lymph % (Auto) [place] % (Auto) Lymph # [place] # Baso # Seg Neutrophils % Seg Neuts % (Manual) Lymphocytes % (Manual) Monocytes % (Manual) Eosinophils % (Manual) Basophils % (Manual) Nucleated RBC % Seg Neutrophils # Seg Neutrophils # Man Lymphocytes # (Manual) Monocytes # (Manual) Eosinophils # (Manual) Basophils # (Manual) PT INR Fibrinogen dRVVT Confirm Interp Factor V Activity POC ABG pH POC ABG pCO2 POC ABG pO2 ABG pO2 ABG HCO3 ABG Base Excess ABG Hemoglobin Oxyhemoglobin Sodium Potassium Chloride Carbon Dioxide BUN Creatinine Glucose POC Glucose 108 H 110 H 156 H Lactic Acid Calcium Ionized Calcium Phosphorus Magnesium Direct Bilirubin AST ALT Alkaline Phosphatase Lactate Dehydrogenase Troponin T C-Reactive Protein Total Protein Albumin Prealbumin Triglycerides Cholesterol LDL Cholesterol Direct HDL Cholesterol 25-OH Vitamin D Total PTH Intact Urine pH Urine WBC (Auto) Urine Creatinine Urine Total Protein Fluid Total Protein Vancomycin Trough Rheumatoid Factor Complement C4 Miscellaneous Test Crossmatch 03/07/17 03/07/17 03/07/17 06:04 11:56 23:31 WBC RBC Hgb Hct MCV MCH MCHC RDW Plt Count Lymph % (Auto) [place] % (Auto) Lymph # [place] # Baso # Seg Neutrophils % Seg Neuts % (Manual) Lymphocytes % (Manual) Monocytes % (Manual) Eosinophils % (Manual) Basophils % (Manual) Nucleated RBC % Seg Neutrophils # Seg Neutrophils # Man Lymphocytes # (Manual) Monocytes # (Manual) Eosinophils # (Manual) Basophils # (Manual) PT INR Fibrinogen dRVVT Confirm Interp Factor V Activity POC ABG pH POC ABG pCO2 POC ABG pO2 ABG pO2 ABG HCO3 ABG Base Excess ABG Hemoglobin Oxyhemoglobin Sodium Potassium Chloride 97.5 L Carbon Dioxide BUN 28 H Creatinine 1.5 H Glucose POC Glucose 106 H 131 H Lactic Acid Calcium 7.9 L Ionized Calcium Phosphorus Magnesium Direct Bilirubin AST ALT Alkaline Phosphatase Lactate Dehydrogenase Troponin T C-Reactive Protein Total Protein Albumin Prealbumin Triglycerides Cholesterol LDL Cholesterol Direct HDL Cholesterol 25-OH Vitamin D Total PTH Intact Urine pH Urine WBC (Auto) Urine Creatinine Urine Total Protein Fluid Total Protein Vancomycin Trough Rheumatoid Factor Complement C4 Miscellaneous Test Crossmatch 03/08/17 03/08/17 03/08/17 05:15 05:38 11:50 WBC RBC Hgb Hct MCV MCH MCHC RDW Plt Count Lymph % (Auto) [place] % (Auto) Lymph # [place] # Baso # Seg Neutrophils % Seg Neuts % (Manual) Lymphocytes % (Manual) Monocytes % (Manual) Eosinophils % (Manual) Basophils % (Manual) Nucleated RBC % Seg Neutrophils # Seg Neutrophils # Man Lymphocytes # (Manual) Monocytes # (Manual) Eosinophils # (Manual) Basophils # (Manual) PT INR Fibrinogen dRVVT Confirm Interp Factor V Activity POC ABG pH POC ABG pCO2 POC ABG pO2 ABG pO2 ABG HCO3 ABG Base Excess ABG Hemoglobin Oxyhemoglobin Sodium 135 L Potassium Chloride 96.6 L Carbon Dioxide 20 L BUN 46 H Creatinine 2.3 H D Glucose 117 H POC Glucose 156 H 131 H Lactic Acid Calcium Ionized Calcium Phosphorus Magnesium Direct Bilirubin AST ALT Alkaline Phosphatase Lactate Dehydrogenase Troponin T C-Reactive Protein Total Protein Albumin Prealbumin Triglycerides Cholesterol LDL Cholesterol Direct HDL Cholesterol 25-OH Vitamin D Total PTH Intact Urine pH Urine WBC (Auto) Urine Creatinine Urine Total Protein Fluid Total Protein Vancomycin Trough Rheumatoid Factor Complement C4 Miscellaneous Test Crossmatch 03/08/17 03/09/17 03/09/17 23:34 04:42 05:20 WBC RBC Hgb Hct MCV MCH MCHC RDW Plt Count Lymph % (Auto) [place] % (Auto) Lymph # [place] # Baso # Seg Neutrophils % Seg Neuts % (Manual) Lymphocytes % (Manual) Monocytes % (Manual) Eosinophils % (Manual) Basophils % (Manual) Nucleated RBC % Seg Neutrophils # Seg Neutrophils # Man Lymphocytes # (Manual) Monocytes # (Manual) Eosinophils # (Manual) Basophils # (Manual) PT INR Fibrinogen dRVVT Confirm Interp Factor V Activity POC ABG pH POC ABG pCO2 POC ABG pO2 ABG pO2 ABG HCO3 ABG Base Excess ABG Hemoglobin Oxyhemoglobin Sodium Potassium 3.2 L Chloride Carbon Dioxide BUN 30 H Creatinine 1.7 H Glucose 112 H POC Glucose 125 H 128 H Lactic Acid Calcium 8.2 L Ionized Calcium Phosphorus 1.80 L D Magnesium 1.40 L Direct Bilirubin AST ALT Alkaline Phosphatase Lactate Dehydrogenase Troponin T C-Reactive Protein Total Protein Albumin Prealbumin Triglycerides Cholesterol LDL Cholesterol Direct HDL Cholesterol 25-OH Vitamin D Total PTH Intact Urine pH Urine WBC (Auto) Urine Creatinine Urine Total Protein Fluid Total Protein Vancomycin Trough Rheumatoid Factor Complement C4 Miscellaneous Test Crossmatch 03/09/17 03/09/17 03/10/17 11:48 17:38 00:08 WBC RBC Hgb Hct MCV MCH MCHC RDW Plt Count Lymph % (Auto) [place] % (Auto) Lymph # [place] # Baso # Seg Neutrophils % Seg Neuts % (Manual) Lymphocytes % (Manual) Monocytes % (Manual) Eosinophils % (Manual) Basophils % (Manual) Nucleated RBC % Seg Neutrophils # Seg Neutrophils # Man Lymphocytes # (Manual) Monocytes # (Manual) Eosinophils # (Manual) Basophils # (Manual) PT INR Fibrinogen dRVVT Confirm Interp Factor V Activity POC ABG pH POC ABG pCO2 POC ABG pO2 ABG pO2 ABG HCO3 ABG Base Excess ABG Hemoglobin Oxyhemoglobin Sodium Potassium Chloride Carbon Dioxide BUN Creatinine Glucose POC Glucose 146 H 140 H 137 H Lactic Acid Calcium Ionized Calcium Phosphorus Magnesium Direct Bilirubin AST ALT Alkaline Phosphatase Lactate Dehydrogenase Troponin T C-Reactive Protein Total Protein Albumin Prealbumin Triglycerides Cholesterol LDL Cholesterol Direct HDL Cholesterol 25-OH Vitamin D Total PTH Intact Urine pH Urine WBC (Auto) Urine Creatinine Urine Total Protein Fluid Total Protein Vancomycin Trough Rheumatoid Factor Complement C4 Miscellaneous Test Crossmatch 03/10/17 03/10/17 03/10/17 04:46 06:37 11:22 WBC RBC Hgb Hct MCV MCH MCHC RDW Plt Count Lymph % (Auto) [place] % (Auto) Lymph # [place] # Baso # Seg Neutrophils % Seg Neuts % (Manual) Lymphocytes % (Manual) Monocytes % (Manual) Eosinophils % (Manual) Basophils % (Manual) Nucleated RBC % Seg Neutrophils # Seg Neutrophils # Man Lymphocytes # (Manual) Monocytes # (Manual) Eosinophils # (Manual) Basophils # (Manual) PT INR Fibrinogen dRVVT Confirm Interp Factor V Activity POC ABG pH POC ABG pCO2 POC ABG pO2 ABG pO2 ABG HCO3 ABG Base Excess ABG Hemoglobin Oxyhemoglobin Sodium 135 L Potassium Chloride 96.3 L Carbon Dioxide 21 L BUN 46 H Creatinine 2.2 H Glucose 106 H POC Glucose 115 H 151 H Lactic Acid Calcium 8.2 L Ionized Calcium Phosphorus Magnesium Direct Bilirubin AST ALT Alkaline Phosphatase Lactate Dehydrogenase Troponin T C-Reactive Protein Total Protein Albumin Prealbumin Triglycerides Cholesterol LDL Cholesterol Direct HDL Cholesterol 25-OH Vitamin D Total PTH Intact Urine pH Urine WBC (Auto) Urine Creatinine Urine Total Protein Fluid Total Protein Vancomycin Trough Rheumatoid Factor Complement C4 Miscellaneous Test Crossmatch 03/10/17 03/10/17 03/11/17 17:53 23:46 05:19 WBC RBC Hgb Hct MCV MCH MCHC RDW Plt Count Lymph % (Auto) [place] % (Auto) Lymph # [place] # Baso # Seg Neutrophils % Seg Neuts % (Manual) Lymphocytes % (Manual) Monocytes % (Manual) Eosinophils % (Manual) Basophils % (Manual) Nucleated RBC % Seg Neutrophils # Seg Neutrophils # Man Lymphocytes # (Manual) Monocytes # (Manual) Eosinophils # (Manual) Basophils # (Manual) PT INR Fibrinogen dRVVT Confirm Interp Factor V Activity POC ABG pH POC ABG pCO2 POC ABG pO2 ABG pO2 ABG HCO3 ABG Base Excess ABG Hemoglobin Oxyhemoglobin Sodium Potassium Chloride Carbon Dioxide BUN Creatinine Glucose POC Glucose 137 H 131 H 108 H Lactic Acid Calcium Ionized Calcium Phosphorus Magnesium Direct Bilirubin AST ALT Alkaline Phosphatase Lactate Dehydrogenase Troponin T C-Reactive Protein Total Protein Albumin Prealbumin Triglycerides Cholesterol LDL Cholesterol Direct HDL Cholesterol 25-OH Vitamin D Total PTH Intact Urine pH Urine WBC (Auto) Urine Creatinine Urine Total Protein Fluid Total Protein Vancomycin Trough Rheumatoid Factor Complement C4 Miscellaneous Test Crossmatch 03/11/17 03/11/17 03/11/17 11:37 18:13 23:55 WBC RBC Hgb Hct MCV MCH MCHC RDW Plt Count Lymph % (Auto) [place] % (Auto) Lymph # [place] # Baso # Seg Neutrophils % Seg Neuts % (Manual) Lymphocytes % (Manual) Monocytes % (Manual) Eosinophils % (Manual) Basophils % (Manual) Nucleated RBC % Seg Neutrophils # Seg Neutrophils # Man Lymphocytes # (Manual) Monocytes # (Manual) Eosinophils # (Manual) Basophils # (Manual) PT INR Fibrinogen dRVVT Confirm Interp Factor V Activity POC ABG pH POC ABG pCO2 POC ABG pO2 ABG pO2 ABG HCO3 ABG Base Excess ABG Hemoglobin Oxyhemoglobin Sodium Potassium Chloride Carbon Dioxide BUN Creatinine Glucose POC Glucose 113 H 126 H 134 H Lactic Acid Calcium Ionized Calcium Phosphorus Magnesium Direct Bilirubin AST ALT Alkaline Phosphatase Lactate Dehydrogenase Troponin T C-Reactive Protein Total Protein Albumin Prealbumin Triglycerides Cholesterol LDL Cholesterol Direct HDL Cholesterol 25-OH Vitamin D Total PTH Intact Urine pH Urine WBC (Auto) Urine Creatinine Urine Total Protein Fluid Total Protein Vancomycin Trough Rheumatoid Factor Complement C4 Miscellaneous Test Crossmatch 03/12/17 03/12/17 03/12/17 05:06 11:30 17:39 WBC RBC Hgb Hct MCV MCH MCHC RDW Plt Count Lymph % (Auto) [place] % (Auto) Lymph # [place] # Baso # Seg Neutrophils % Seg Neuts % (Manual) Lymphocytes % (Manual) Monocytes % (Manual) Eosinophils % (Manual) Basophils % (Manual) Nucleated RBC % Seg Neutrophils # Seg Neutrophils # Man Lymphocytes # (Manual) Monocytes # (Manual) Eosinophils # (Manual) Basophils # (Manual) PT INR Fibrinogen dRVVT Confirm Interp Factor V Activity POC ABG pH POC ABG pCO2 POC ABG pO2 ABG pO2 ABG HCO3 ABG Base Excess ABG Hemoglobin Oxyhemoglobin Sodium Potassium Chloride Carbon Dioxide BUN Creatinine Glucose POC Glucose 127 H 144 H 151 H Lactic Acid Calcium Ionized Calcium Phosphorus Magnesium Direct Bilirubin AST ALT Alkaline Phosphatase Lactate Dehydrogenase Troponin T C-Reactive Protein Total Protein Albumin Prealbumin Triglycerides Cholesterol LDL Cholesterol Direct HDL Cholesterol 25-OH Vitamin D Total PTH Intact Urine pH Urine WBC (Auto) Urine Creatinine Urine Total Protein Fluid Total Protein Vancomycin Trough Rheumatoid Factor Complement C4 Miscellaneous Test Crossmatch 03/13/17 03/13/17 03/13/17 05:01 05:39 11:29 WBC RBC Hgb Hct MCV MCH MCHC RDW Plt Count Lymph % (Auto) [place] % (Auto) Lymph # [place] # Baso # Seg Neutrophils % Seg Neuts % (Manual) Lymphocytes % (Manual) Monocytes % (Manual) Eosinophils % (Manual) Basophils % (Manual) Nucleated RBC % Seg Neutrophils # Seg Neutrophils # Man Lymphocytes # (Manual) Monocytes # (Manual) Eosinophils # (Manual) Basophils # (Manual) PT INR Fibrinogen dRVVT Confirm Interp Factor V Activity POC ABG pH POC ABG pCO2 POC ABG pO2 ABG pO2 ABG HCO3 ABG Base Excess ABG Hemoglobin Oxyhemoglobin Sodium 136 L Potassium 3.4 L Chloride 94.6 L Carbon Dioxide BUN 68 H Creatinine 2.9 H Glucose 105 H POC Glucose 123 H 128 H Lactic Acid Calcium Ionized Calcium Phosphorus Magnesium Direct Bilirubin AST ALT Alkaline Phosphatase Lactate Dehydrogenase Troponin T C-Reactive Protein Total Protein Albumin Prealbumin Triglycerides Cholesterol LDL Cholesterol Direct HDL Cholesterol 25-OH Vitamin D Total PTH Intact Urine pH Urine WBC (Auto) Urine Creatinine Urine Total Protein Fluid Total Protein Vancomycin Trough Rheumatoid Factor Complement C4 Miscellaneous Test Crossmatch 03/13/17 03/13/1703/14/18 17:39 21:53 03:30 WBC RBC Hgb Hct MCV MCH MCHC RDW Plt Count Lymph % (Auto) [place] % (Auto) Lymph # [place] # Baso # Seg Neutrophils % Seg Neuts % (Manual) Lymphocytes % (Manual) Monocytes % (Manual) Eosinophils % (Manual) Basophils % (Manual) Nucleated RBC % Seg Neutrophils # Seg Neutrophils # Man Lymphocytes # (Manual) Monocytes # (Manual) Eosinophils # (Manual) Basophils # (Manual) PT INR Fibrinogen dRVVT Confirm Interp Factor V Activity POC ABG pH POC ABG pCO2 POC ABG pO2 ABG pO2 ABG HCO3 ABG Base Excess ABG Hemoglobin Oxyhemoglobin Sodium 133 L Potassium Chloride 95.7 L Carbon Dioxide 21 L BUN 37 H Creatinine 1.8 H Glucose 138 H POC Glucose 160 H 147 H Lactic Acid Calcium 8.1 L Ionized Calcium Phosphorus 2.10 L D Magnesium 1.60 L Direct Bilirubin AST ALT Alkaline Phosphatase Lactate Dehydrogenase Troponin T C-Reactive Protein Total Protein Albumin Prealbumin Triglycerides Cholesterol LDL Cholesterol Direct HDL Cholesterol 25-OH Vitamin D Total PTH Intact Urine pH Urine WBC (Auto) Urine Creatinine Urine Total Protein Fluid Total Protein Vancomycin Trough Rheumatoid Factor Complement C4 Miscellaneous Test Crossmatch 03/14/17 03/14/17 03/14/17 05:19 11:08 12:51 WBC RBC Hgb Hct MCV MCH MCHC RDW Plt Count Lymph % (Auto) [place] % (Auto) Lymph # [place] # Baso # Seg Neutrophils % Seg Neuts % (Manual) Lymphocytes % (Manual) Monocytes % (Manual) Eosinophils % (Manual) Basophils % (Manual) Nucleated RBC % Seg Neutrophils # Seg Neutrophils # Man Lymphocytes # (Manual) Monocytes # (Manual) Eosinophils # (Manual) Basophils # (Manual) PT INR Fibrinogen dRVVT Confirm Interp Factor V Activity POC ABG pH POC ABG pCO2 POC ABG pO2 ABG pO2 ABG HCO3 ABG Base Excess ABG Hemoglobin Oxyhemoglobin Sodium Potassium Chloride Carbon Dioxide BUN Creatinine Glucose POC Glucose 159 H 144 H Lactic Acid Calcium Ionized Calcium Phosphorus Magnesium Direct Bilirubin AST ALT Alkaline Phosphatase Lactate Dehydrogenase Troponin T C-Reactive Protein 19.50 H Total Protein Albumin Prealbumin Triglycerides Cholesterol LDL Cholesterol Direct HDL Cholesterol 25-OH Vitamin D Total PTH Intact Urine pH Urine WBC (Auto) Urine Creatinine Urine Total Protein Fluid Total Protein Vancomycin Trough Rheumatoid Factor Complement C4 Miscellaneous Test Crossmatch 03/14/17 03/14/17 03/14/17 14:30 16:50 16:55 WBC 17.6 H RBC 2.18 L Hgb 6.0 L Hct 19.8 L* MCV MCH MCHC RDW 19.9 H Plt Count Lymph % (Auto) [place] % (Auto) Lymph # [place] # Baso # Seg Neutrophils % Seg Neuts % (Manual) Lymphocytes % (Manual) 13.0 L Monocytes % (Manual) 15.0 H Eosinophils % (Manual) Basophils % (Manual) Nucleated RBC % Seg Neutrophils # Seg Neutrophils # Man 12.3 H Lymphocytes # (Manual) Monocytes # (Manual) 2.6 H Eosinophils # (Manual) Basophils # (Manual) PT INR Fibrinogen dRVVT Confirm Interp Factor V Activity POC ABG pH POC ABG pCO2 POC ABG pO2 ABG pO2 ABG HCO3 ABG Base Excess ABG Hemoglobin Oxyhemoglobin Sodium Potassium Chloride Carbon Dioxide BUN Creatinine Glucose POC Glucose 156 H Lactic Acid Calcium Ionized Calcium Phosphorus Magnesium Direct Bilirubin AST ALT Alkaline Phosphatase Lactate Dehydrogenase Troponin T C-Reactive Protein Total Protein Albumin Prealbumin Triglycerides Cholesterol LDL Cholesterol Direct HDL Cholesterol 25-OH Vitamin D Total PTH Intact Urine pH Urine WBC (Auto) Urine Creatinine Urine Total Protein Fluid Total Protein Vancomycin Trough Rheumatoid Factor Complement C4 Miscellaneous Test Crossmatch See Detail 03/14/17 03/15/17 03/15/17 23:31 05:03 05:03 WBC 15.2 H RBC 2.42 L Hgb 6.9 L Hct 22.2 L MCV MCH MCHC RDW 18.4 H Plt Count Lymph % (Auto) [place] % (Auto) Lymph # [place] # Baso # Seg Neutrophils % Seg Neuts % (Manual) Lymphocytes % (Manual) Monocytes % (Manual) Eosinophils % (Manual) Basophils % (Manual) Nucleated RBC % Seg Neutrophils # Seg Neutrophils # Man Lymphocytes # (Manual) Monocytes # (Manual) Eosinophils # (Manual) Basophils # (Manual) PT INR Fibrinogen dRVVT Confirm Interp Factor V Activity POC ABG pH POC ABG pCO2 POC ABG pO2 ABG pO2 ABG HCO3 ABG Base Excess ABG Hemoglobin Oxyhemoglobin Sodium Potassium 3.5 L Chloride Carbon Dioxide BUN 54 H Creatinine 2.6 H Glucose 127 H POC Glucose 176 H Lactic Acid Calcium Ionized Calcium Phosphorus Magnesium Direct Bilirubin AST ALT Alkaline Phosphatase Lactate Dehydrogenase Troponin T C-Reactive Protein Total Protein Albumin Prealbumin Triglycerides Cholesterol LDL Cholesterol Direct HDL Cholesterol 25-OH Vitamin D Total PTH Intact Urine pH Urine WBC (Auto) Urine Creatinine Urine Total Protein Fluid Total Protein Vancomycin Trough Rheumatoid Factor Complement C4 Miscellaneous Test Crossmatch 03/15/17 03/15/17 03/15/17 05:04 12:52 17:46 WBC RBC Hgb Hct MCV MCH MCHC RDW Plt Count Lymph % (Auto) [place] % (Auto) Lymph # [place] # Baso # Seg Neutrophils % Seg Neuts % (Manual) Lymphocytes % (Manual) Monocytes % (Manual) Eosinophils % (Manual) Basophils % (Manual) Nucleated RBC % Seg Neutrophils # Seg Neutrophils # Man Lymphocytes # (Manual) Monocytes # (Manual) Eosinophils # (Manual) Basophils # (Manual) PT INR Fibrinogen dRVVT Confirm Interp Factor V Activity POC ABG pH POC ABG pCO2 POC ABG pO2 ABG pO2 ABG HCO3 ABG Base Excess ABG Hemoglobin Oxyhemoglobin Sodium Potassium Chloride Carbon Dioxide BUN Creatinine Glucose POC Glucose 106 H 141 H 170 H Lactic Acid Calcium Ionized Calcium Phosphorus Magnesium Direct Bilirubin AST ALT Alkaline Phosphatase Lactate Dehydrogenase Troponin T C-Reactive Protein Total Protein Albumin Prealbumin Triglycerides Cholesterol LDL Cholesterol Direct HDL Cholesterol 25-OH Vitamin D Total PTH Intact Urine pH Urine WBC (Auto) Urine Creatinine Urine Total Protein Fluid Total Protein Vancomycin Trough Rheumatoid Factor Complement C4 Miscellaneous Test Crossmatch 03/16/17 03/16/17 03/16/17 00:16 03:35 05:15 WBC RBC Hgb Hct MCV MCH MCHC RDW Plt Count Lymph % (Auto) [place] % (Auto) Lymph # [place] # Baso # Seg Neutrophils % Seg Neuts % (Manual) Lymphocytes % (Manual) Monocytes % (Manual) Eosinophils % (Manual) Basophils % (Manual) Nucleated RBC % Seg Neutrophils # Seg Neutrophils # Man Lymphocytes # (Manual) Monocytes # (Manual) Eosinophils # (Manual) Basophils # (Manual) PT INR Fibrinogen dRVVT Confirm Interp Factor V Activity POC ABG pH POC ABG pCO2 POC ABG pO2 ABG pO2 ABG HCO3 ABG Base Excess ABG Hemoglobin Oxyhemoglobin Sodium Potassium 3.5 L Chloride Carbon Dioxide BUN 26 H Creatinine 1.3 H Glucose 129 H POC Glucose 120 H 140 H Lactic Acid Calcium 7.9 L Ionized Calcium Phosphorus 2.20 L D Magnesium Direct Bilirubin AST ALT Alkaline Phosphatase Lactate Dehydrogenase Troponin T C-Reactive Protein Total Protein Albumin Prealbumin Triglycerides Cholesterol LDL Cholesterol Direct HDL Cholesterol 25-OH Vitamin D Total PTH Intact Urine pH Urine WBC (Auto) Urine Creatinine Urine Total Protein Fluid Total Protein Vancomycin Trough Rheumatoid Factor Complement C4 Miscellaneous Test Crossmatch 03/16/17 03/16/17 03/17/17 12:26 18:16 00:00 WBC RBC Hgb Hct MCV MCH MCHC RDW Plt Count Lymph % (Auto) [place] % (Auto) Lymph # [place] # Baso # Seg Neutrophils % Seg Neuts % (Manual) Lymphocytes % (Manual) Monocytes % (Manual) Eosinophils % (Manual) Basophils % (Manual) Nucleated RBC % Seg Neutrophils # Seg Neutrophils # Man Lymphocytes # (Manual) Monocytes # (Manual) Eosinophils # (Manual) Basophils # (Manual) PT INR Fibrinogen dRVVT Confirm Interp Factor V Activity POC ABG pH POC ABG pCO2 POC ABG pO2 ABG pO2 ABG HCO3 ABG Base Excess ABG Hemoglobin Oxyhemoglobin Sodium Potassium Chloride Carbon Dioxide BUN Creatinine Glucose POC Glucose 133 H 107 H 124 H Lactic Acid Calcium Ionized Calcium Phosphorus Magnesium Direct Bilirubin AST ALT Alkaline Phosphatase Lactate Dehydrogenase Troponin T C-Reactive Protein Total Protein Albumin Prealbumin Triglycerides Cholesterol LDL Cholesterol Direct HDL Cholesterol 25-OH Vitamin D Total PTH Intact Urine pH Urine WBC (Auto) Urine Creatinine Urine Total Protein Fluid Total Protein Vancomycin Trough Rheumatoid Factor Complement C4 Miscellaneous Test Crossmatch 03/17/17 03/17/17 03/17/17 04:00 05:57 12:00 WBC RBC Hgb Hct MCV MCH MCHC RDW Plt Count Lymph % (Auto) [place] % (Auto) Lymph # [place] # Baso # Seg Neutrophils % Seg Neuts % (Manual) Lymphocytes % (Manual) Monocytes % (Manual) Eosinophils % (Manual) Basophils % (Manual) Nucleated RBC % Seg Neutrophils # Seg Neutrophils # Man Lymphocytes # (Manual) Monocytes # (Manual) Eosinophils # (Manual) Basophils # (Manual) PT INR Fibrinogen dRVVT Confirm Interp Factor V Activity POC ABG pH POC ABG pCO2 POC ABG pO2 ABG pO2 ABG HCO3 ABG Base Excess ABG Hemoglobin Oxyhemoglobin Sodium 134 L Potassium Chloride 95.1 L Carbon Dioxide BUN 37 H Creatinine 1.8 H Glucose 115 H POC Glucose 141 H 129 H Lactic Acid Calcium 8.3 L Ionized Calcium Phosphorus 5.50 H D Magnesium Direct Bilirubin AST ALT Alkaline Phosphatase Lactate Dehydrogenase Troponin T C-Reactive Protein Total Protein Albumin Prealbumin Triglycerides Cholesterol LDL Cholesterol Direct HDL Cholesterol 25-OH Vitamin D Total PTH Intact Urine pH Urine WBC (Auto) Urine Creatinine Urine Total Protein Fluid Total Protein Vancomycin Trough Rheumatoid Factor Complement C4 Miscellaneous Test Crossmatch 03/17/17 03/18/17 03/18/17 17:23 00:04 04:00 WBC RBC Hgb Hct MCV MCH MCHC RDW Plt Count Lymph % (Auto) [place] % (Auto) Lymph # [place] # Baso # Seg Neutrophils % Seg Neuts % (Manual) Lymphocytes % (Manual) Monocytes % (Manual) Eosinophils % (Manual) Basophils % (Manual) Nucleated RBC % Seg Neutrophils # Seg Neutrophils # Man Lymphocytes # (Manual) Monocytes # (Manual) Eosinophils # (Manual) Basophils # (Manual) PT INR Fibrinogen dRVVT Confirm Interp Factor V Activity POC ABG pH POC ABG pCO2 POC ABG pO2 ABG pO2 ABG HCO3 ABG Base Excess ABG Hemoglobin Oxyhemoglobin Sodium Potassium Chloride Carbon Dioxide BUN 23 H Creatinine 1.3 H Glucose 122 H POC Glucose 155 H 126 H Lactic Acid Calcium 8.3 L Ionized Calcium Phosphorus Magnesium Direct Bilirubin AST ALT Alkaline Phosphatase Lactate Dehydrogenase Troponin T C-Reactive Protein Total Protein Albumin Prealbumin Triglycerides Cholesterol LDL Cholesterol Direct HDL Cholesterol 25-OH Vitamin D Total PTH Intact Urine pH Urine WBC (Auto) Urine Creatinine Urine Total Protein Fluid Total Protein Vancomycin Trough Rheumatoid Factor Complement C4 Miscellaneous Test Crossmatch 03/18/17 03/18/17 03/18/17 05:47 11:15 18:07 WBC RBC Hgb Hct MCV MCH MCHC RDW Plt Count Lymph % (Auto) [place] % (Auto) Lymph # [place] # Baso # Seg Neutrophils % Seg Neuts % (Manual) Lymphocytes % (Manual) Monocytes % (Manual) Eosinophils % (Manual) Basophils % (Manual) Nucleated RBC % Seg Neutrophils # Seg Neutrophils # Man Lymphocytes # (Manual) Monocytes # (Manual) Eosinophils # (Manual) Basophils # (Manual) PT INR Fibrinogen dRVVT Confirm Interp Factor V Activity POC ABG pH POC ABG pCO2 POC ABG pO2 ABG pO2 ABG HCO3 ABG Base Excess ABG Hemoglobin Oxyhemoglobin Sodium Potassium Chloride Carbon Dioxide BUN Creatinine Glucose POC Glucose 139 H 138 H 134 H Lactic Acid Calcium Ionized Calcium Phosphorus Magnesium Direct Bilirubin AST ALT Alkaline Phosphatase Lactate Dehydrogenase Troponin T C-Reactive Protein Total Protein Albumin Prealbumin Triglycerides Cholesterol LDL Cholesterol Direct HDL Cholesterol 25-OH Vitamin D Total PTH Intact Urine pH Urine WBC (Auto) Urine Creatinine Urine Total Protein Fluid Total Protein Vancomycin Trough Rheumatoid Factor Complement C4 Miscellaneous Test Crossmatch 03/19/17 03/19/17 03/19/17 00:34 06:11 11:15 WBC RBC Hgb Hct MCV MCH MCHC RDW Plt Count Lymph % (Auto) [place] % (Auto) Lymph # [place] # Baso # Seg Neutrophils % Seg Neuts % (Manual) Lymphocytes % (Manual) Monocytes % (Manual) Eosinophils % (Manual) Basophils % (Manual) Nucleated RBC % Seg Neutrophils # Seg Neutrophils # Man Lymphocytes # (Manual) Monocytes # (Manual) Eosinophils # (Manual) Basophils # (Manual) PT INR Fibrinogen dRVVT Confirm Interp Factor V Activity POC ABG pH POC ABG pCO2 POC ABG pO2 ABG pO2 ABG HCO3 ABG Base Excess ABG Hemoglobin Oxyhemoglobin Sodium Potassium Chloride Carbon Dioxide BUN Creatinine Glucose POC Glucose 139 H 146 H 129 H Lactic Acid Calcium Ionized Calcium Phosphorus Magnesium Direct Bilirubin AST ALT Alkaline Phosphatase Lactate Dehydrogenase Troponin T C-Reactive Protein Total Protein Albumin Prealbumin Triglycerides Cholesterol LDL Cholesterol Direct HDL Cholesterol 25-OH Vitamin D Total PTH Intact Urine pH Urine WBC (Auto) Urine Creatinine Urine Total Protein Fluid Total Protein Vancomycin Trough Rheumatoid Factor Complement C4 Miscellaneous Test Crossmatch 03/19/17 03/19/17 03/19/17 17:28 23:23 Unknown WBC RBC Hgb Hct MCV MCH MCHC RDW Plt Count Lymph % (Auto) [place] % (Auto) Lymph # [place] # Baso # Seg Neutrophils % Seg Neuts % (Manual) Lymphocytes % (Manual) Monocytes % (Manual) Eosinophils % (Manual) Basophils % (Manual) Nucleated RBC % Seg Neutrophils # Seg Neutrophils # Man Lymphocytes # (Manual) Monocytes # (Manual) Eosinophils # (Manual) Basophils # (Manual) PT INR Fibrinogen dRVVT Confirm Interp Factor V Activity POC ABG pH POC ABG pCO2 POC ABG pO2 ABG pO2 ABG HCO3 ABG Base Excess ABG Hemoglobin Oxyhemoglobin Sodium Potassium Chloride 96.8 L Carbon Dioxide BUN 34 H Creatinine 1.9 H Glucose 138 H POC Glucose 142 H 144 H Lactic Acid Calcium Ionized Calcium Phosphorus 5.20 H D Magnesium Direct Bilirubin AST ALT Alkaline Phosphatase Lactate Dehydrogenase Troponin T C-Reactive Protein Total Protein Albumin Prealbumin Triglycerides Cholesterol LDL Cholesterol Direct HDL Cholesterol 25-OH Vitamin D Total PTH Intact Urine pH Urine WBC (Auto) Urine Creatinine Urine Total Protein Fluid Total Protein Vancomycin Trough Rheumatoid Factor Complement C4 Miscellaneous Test Crossmatch 03/20/17 03/20/17 03/20/17 13:55 16:00 23:38 WBC 13.8 H RBC 2.21 L Hgb 6.6 L Hct 21.2 L MCV MCH MCHC RDW 19.7 H Plt Count Lymph % (Auto) [place] % (Auto) Lymph # [place] # 1.0 H Baso # Seg Neutrophils % 72.0 H Seg Neuts % (Manual) Lymphocytes % (Manual) Monocytes % (Manual) Eosinophils % (Manual) Basophils % (Manual) Nucleated RBC % Seg Neutrophils # 9.9 H Seg Neutrophils # Man Lymphocytes # (Manual) Monocytes # (Manual) Eosinophils # (Manual) Basophils # (Manual) PT INR Fibrinogen dRVVT Confirm Interp Factor V Activity POC ABG pH POC ABG pCO2 POC ABG pO2 ABG pO2 ABG HCO3 ABG Base Excess ABG Hemoglobin Oxyhemoglobin Sodium Potassium Chloride Carbon Dioxide BUN Creatinine Glucose POC Glucose 163 H Lactic Acid Calcium Ionized Calcium Phosphorus Magnesium Direct Bilirubin AST ALT Alkaline Phosphatase Lactate Dehydrogenase Troponin T C-Reactive Protein Total Protein Albumin Prealbumin Triglycerides Cholesterol LDL Cholesterol Direct HDL Cholesterol 25-OH Vitamin D Total PTH Intact Urine pH Urine WBC (Auto) Urine Creatinine Urine Total Protein Fluid Total Protein Vancomycin Trough Rheumatoid Factor Complement C4 Miscellaneous Test Crossmatch See Detail 03/20/17 03/21/17 03/21/17 Unknown 04:57 05:20 WBC 15.3 H RBC 2.68 L Hgb 8.8 L Hct 24.6 L MCV MCH 33 H MCHC 36 H RDW 19.4 H Plt Count Lymph % (Auto) [place] % (Auto) Lymph # [place] # 1.1 H Baso # Seg Neutrophils % 76.8 H Seg Neuts % (Manual) Lymphocytes % (Manual) Monocytes % (Manual) Eosinophils % (Manual) Basophils % (Manual) Nucleated RBC % Seg Neutrophils # 11.7 H Seg Neutrophils # Man Lymphocytes # (Manual) Monocytes # (Manual) Eosinophils # (Manual) Basophils # (Manual) PT INR Fibrinogen dRVVT Confirm Interp Factor V Activity POC ABG pH POC ABG pCO2 POC ABG pO2 ABG pO2 ABG HCO3 ABG Base Excess ABG Hemoglobin Oxyhemoglobin Sodium Potassium Chloride 97.7 L Carbon Dioxide BUN 43 H Creatinine 2.2 H Glucose POC Glucose 111 H Lactic Acid Calcium Ionized Calcium Phosphorus 5.30 H Magnesium Direct Bilirubin AST ALT 6 L Alkaline Phosphatase Lactate Dehydrogenase Troponin T C-Reactive Protein Total Protein Albumin 0.9 L Prealbumin Triglycerides Cholesterol LDL Cholesterol Direct HDL Cholesterol 25-OH Vitamin D Total PTH Intact Urine pH Urine WBC (Auto) Urine Creatinine Urine Total Protein Fluid Total Protein Vancomycin Trough Rheumatoid Factor Complement C4 Miscellaneous Test Crossmatch 03/21/17 03/22/17 03/22/17 17:18 06:25 12:30 WBC RBC Hgb Hct MCV MCH MCHC RDW Plt Count Lymph % (Auto) [place] % (Auto) Lymph # [place] # Baso # Seg Neutrophils % Seg Neuts % (Manual) Lymphocytes % (Manual) Monocytes % (Manual) Eosinophils % (Manual) Basophils % (Manual) Nucleated RBC % Seg Neutrophils # Seg Neutrophils # Man Lymphocytes # (Manual) Monocytes # (Manual) Eosinophils # (Manual) Basophils # (Manual) PT INR Fibrinogen dRVVT Confirm Interp Factor V Activity POC ABG pH POC ABG pCO2 POC ABG pO2 ABG pO2 ABG HCO3 ABG Base Excess ABG Hemoglobin Oxyhemoglobin Sodium 136 L Potassium Chloride 97.7 L Carbon Dioxide BUN 31 H Creatinine 1.8 H Glucose 102 H POC Glucose 118 H 164 H Lactic Acid Calcium Ionized Calcium Phosphorus Magnesium Direct Bilirubin AST ALT Alkaline Phosphatase Lactate Dehydrogenase Troponin T C-Reactive Protein Total Protein Albumin Prealbumin Triglycerides Cholesterol LDL Cholesterol Direct HDL Cholesterol 25-OH Vitamin D Total PTH Intact Urine pH Urine WBC (Auto) Urine Creatinine Urine Total Protein Fluid Total Protein Vancomycin Trough Rheumatoid Factor Complement C4 Miscellaneous Test Crossmatch Allied health notes reviewed: nursing
[2017-03-22] MEDS ORDERED: INTRALIPID 20% 250 ML IV SCH (20:00)
[2017-03-22] MEDS ORDERED: TPN ADULT IV SCH (20:00)
[2017-03-22] MEDS: TRANSDERM-SCOP TD SCH (21:00)
[2017-03-23] MEDS: LOPRESSOR IV SCH ×4 (02:00→20:00)
[2017-03-23] MEDS: FLAGYL 500 MG/100 ML 500 MG/100 ML BAG IV SCH ×2 (06:12→14:52)
[2017-03-23] MEDS: HumuLIN R SUB-Q SCH ×5 (06:13→18:41)
[2017-03-23] MEDS: CORDARONE 900 MG in D5W 482 ML IV SCH (06:30)
[2017-03-23 06:35] LABS: Basophils # (Auto) 0.1 K/mm3 (0.0-0.1); Eosinophils # (Auto) 0.1 K/mm3 (0.0-0.4); Eosinophils % (Auto) 0.8 % (0.0-4.3); Hematocrit 24.1 % (30.3-42.9); Lymphocytes # (Auto) 2.1 K/mm3 (1.2-5.4); Mean Corpuscular HGB Conc 33 % (30-34); Mean Corpuscular Hemoglobin 32 pg (28-32); Mean Corpuscular Volume 96 fl (79-97); Monocytes # (Auto) 0.6 K/mm3 (0.0-0.8); Monocytes % (Auto) 5.9 % (0.0-7.3); Platelet Count 183 K/mm3 (140-440)
[2017-03-23 06:39] LABS: Red Cell Distribution Width 22.2 % (13.2-15.2)
[2017-03-23 06:55] LABS: Calcium 8.2 mg/dL (8.4-10.2)
--- NOTE | 2017-03-23 08:23 | Progress Note ---
Assessment and Plan Assessment and plan: 47-year-old female patient multiple medical problems, large CVA , hypoxic encephalopathy , status post cardiac arrest , vegetative state , atrial fibrillation , sepsis , aspiration pneumonia , end- stage renal disease on hemodialysis , multiple sacral and lower extremity decubiti requiring debridement , severe protein calorie malnutrition peritonitis / perforation, multiple surgeries, DO NOT RESUSCITATE status,prolonged hospital stay and poor prognosis, --Acute respiratory failure/status post tracheostomy/ventilator dependent/ continue current management --Aspiration pneumonia/managed with multiple antibiotics per ID recommendations , continue current treatment --Status post cardiac arrest/anoxic encephalopathy/vegetative state --Large CVA with mass effect/anoxic brain injury --Perforated bowel/drainage of large fluid collection, continue supportive care --Peritonitis/gastric perforation/status post laparotomy/on TPN --A. fib with rapid ventricular rate/continue amiodarone --Sepsis/recurrent enterococcal infection/ID following/continue current antibiotics --Hypotension/septic shock requiring Levophed, closely monitor --End-stage renal disease; on hemodialysis, nephrology following --Multiple sacral decubiti stage III to stage IV, post debridement, continue wound care --Severe protein calorie malnutrition; continue TPN, supportive care --DO NOT RESUSCITATE status Very poor prognosis, family aware, recommend hospice, family not willing Unable to place in LTAC/SNF, Multiple social issues As the monitor the patient and adjust the management as needed Plan of care discussed with the patient's nurse and case management History Interval history: Patient seen and examined Clinically no change Tracheostomy on vent Vegetative state Hospitalist Physical - Constitutional Vitals: Temp Pulse Resp BP Pulse Ox 98.3 F 100 H 16 96/53 95 03/23/17 08:00 03/23/17 05:22 03/23/17 04:00 03/23/17 05:22 03/23/17 05:22 General appearance: Present: no acute distress, cachectic, other (spontaneous opening of eyes, unresponsive) - EENT Eyes: Present: PERRL, EOM intact - Neck Neck: Present: supple, normal ROM - Respiratory Respiratory effort: normal Respiratory: bilateral: diminished, rhonchi - Cardiovascular Rhythm: regular Heart Sounds: Present: S1 & S2 - Extremities Extremities: abnormal (contracted) Extremity abnormal: edema - Abdominal General gastrointestinal: soft, non-tender, absent bowel sounds, other (drain in place) - Integumentary Integumentary: Present: clear, warm - Psychiatric Psychiatric: other ( unresponsive) - Neurologic Neurologic: other (unresponsive) Results - Labs CBC & Chem 7: 03/23/17 05:30 03/23/17 05:30 Labs: Laboratory Last Values WBC 10.4 K/mm3 (4.5-11.0) 03/23/17 05:30 RBC 2.50 M/mm3 (3.65-5.03) L 03/23/17 05:30 Hgb 8.0 gm/dl (10.1-14.3) L 03/23/17 05:30 Hct 24.1 % (30.3-42.9) L 03/23/17 05:30 MCV 96 fl (79-97) 03/23/17 05:30 MCH 32 pg (28-32) 03/23/17 05:30 MCHC 33 % (30-34) 03/23/17 05:30 RDW 22.2 % (13.2-15.2) H 03/23/17 05:30 Plt Count 183 K/mm3 (140-440) 03/23/17 05:30 Lymph % (Auto) 20.0 % (13.4-35.0) 03/23/17 05:30 [place] % (Auto) 5.9 % (0.0-7.3) 03/23/17 05:30 Eos % (Auto) 0.8 % (0.0-4.3) 03/23/17 05:30 Baso % (Auto) 1.0 % (0.0-1.8) 03/23/17 05:30 Lymph # 2.1 K/mm3 (1.2-5.4) 03/23/17 05:30 [place] # 0.6 K/mm3 (0.0-0.8) 03/23/17 05:30 Eos # 0.1 K/mm3 (0.0-0.4) 03/23/17 05:30 Baso # 0.1 K/mm3 (0.0-0.1) 03/23/17 05:30 Add Manual Diff Complete 03/14/17 14:30 Total Counted 100 03/14/17 14:30 Seg Neutrophils % 72.3 % (40.0-70.0) H 03/23/17 05:30 Seg Neuts % (Manual) 70.0 % (40.0-70.0) 03/14/17 14:30 Band Neutrophils % 0 % 03/14/17 14:30 Lymphocytes % (Manual) 13.0 % (13.4-35.0) L 03/14/17 14:30 Reactive Lymphs % (Man) 1.0 % 03/14/17 14:30 Monocytes % (Manual) 15.0 % (0.0-7.3) H 03/14/17 14:30 Eosinophils % (Manual) 1.0 % (0.0-4.3) 03/14/17 14:30 Basophils % (Manual) 0 % (0.0-1.8) 03/14/17 14:30 Metamyelocytes % 0 % 03/14/17 14:30 Myelocytes % 0 % 03/14/17 14:30 Promyelocytes % 0 % 03/14/17 14:30 Blast Cells % 0 % 03/14/17 14:30 Nucleated RBC % Not Reportable 03/14/17 14:30 Seg Neutrophils # 7.5 K/mm3 (1.8-7.7) 03/23/17 05:30 Seg Neutrophils # Man 12.3 K/mm3 (1.8-7.7) H 03/14/17 14:30 Band Neutrophils # 0.0 K/mm3 03/14/17 14:30 Lymphocytes # (Manual) 2.3 K/mm3 (1.2-5.4) 03/14/17 14:30 Abs React Lymphs (Man) 0.2 K/mm3 03/14/17 14:30 Monocytes # (Manual) 2.6 K/mm3 (0.0-0.8) H 03/14/17 14:30 Eosinophils # (Manual) 0.2 K/mm3 (0.0-0.4) 03/14/17 14:30 Basophils # (Manual) 0.0 K/mm3 (0.0-0.1) 03/14/17 14:30 Metamyelocytes # 0.0 K/mm3 03/14/17 14:30 Myelocytes # 0.0 K/mm3 03/14/17 14:30 Promyelocytes # 0.0 K/mm3 03/14/17 14:30 Blast Cells # 0.0 K/mm3 03/14/17 14:30 Pathologist Review 09/13/16 04:00 WBC Morphology Not Reportable 03/14/17 14:30 Hypersegmented Neuts Not Reportable 03/14/17 14:30 Hyposegmented Neuts Not Reportable 03/14/17 14:30 Hypogranular Neuts Not Reportable 03/14/17 14:30 Smudge Cells Not Reportable 03/14/17 14:30 Toxic Granulation Not Reportable 03/14/17 14:30 Toxic Vacuolation Not Reportable 03/14/17 14:30 Dohle Bodies Not Reportable 03/14/17 14:30 Pelger-Huet Anomaly Not Reportable 03/14/17 14:30 Jasmina Rods Not Reportable 03/14/17 14:30 Platelet Estimate Consistent w auto 03/14/17 14:30 Clumped Platelets Not Reportable 03/14/17 14:30 Plt Clumps, EDTA Not Reportable 03/14/17 14:30 Large Platelets Not Reportable 03/14/17 14:30 Giant Platelets Not Reportable 03/14/17 14:30 Platelet Satelliting Not Reportable 03/14/17 14:30 Plt Morphology Comment Not Reportable 03/14/17 14:30 RBC Morphology Not Reportable 03/14/17 14:30 Dimorphic RBCs Not Reportable 03/14/17 14:30 Polychromasia Not Reportable 03/14/17 14:30 Hypochromasia 2+ 03/14/17 14:30 Poikilocytosis Not Reportable 03/14/17 14:30 Anisocytosis 1+ 03/14/17 14:30 Microcytosis Not Reportable 03/14/17 14:30 Macrocytosis Not Reportable 03/14/17 14:30 Spherocytes Not Reportable 03/14/17 14:30 Pappenheimer Bodies Not Reportable 03/14/17 14:30 Sickle Cells Not Reportable 03/14/17 14:30 Target Cells Not Reportable 03/14/17 14:30 Tear Drop Cells Not Reportable 03/14/17 14:30 Ovalocytes Not Reportable 03/14/17 14:30 Stomatocytes 2+ 03/14/17 14:30 Helmet Cells Not Reportable 03/14/17 14:30 Monet-Ball Ground Bodies Not Reportable 03/14/17 14:30 [place] Rings Not Reportable 03/14/17 14:30 Chuck Cells Not Reportable 03/14/17 14:30 Bite Cells Not Reportable 03/14/17 14:30 Crenated Cell Not Reportable 03/14/17 14:30 Elliptocytes Not Reportable 03/14/17 14:30 Acanthocytes (Spur) Not Reportable 03/14/17 14:30 Rouleaux Not Reportable 03/14/17 14:30 Hemoglobin C Crystals Not Reportable 03/14/17 14:30 Schistocytes Not Reportable 03/14/17 14:30 Malaria parasites Not Reportable 03/14/17 14:30 ESR > 140.0 mm/Hr (0-20) 09/08/16 11:48 Jun Bodies Not Reportable 03/14/17 14:30 Hem Pathologist Commnt No 03/14/17 14:30 PT 15.4 Sec. (12.2-14.9) H 01/13/17 15:50 INR 1.16 (0.87-1.13) H 01/13/17 15:50 APTT 33.0 Sec. (24.2-36.6) 10/09/16 03:45 Thrombin Time 16.8 Sec. (15.1-19.6) 09/03/16 00:10 Fibrinogen 750 mg/dl (211-480) H 09/08/16 11:48 Lupus Anticoagulant see below 09/12/16 09:59 LA PTT Baseline See scanned report 09/12/16 09:59 dRVVT Confirm Interp Positive (Negative) H 09/12/16 09:59 dRVVT Screen 50:50 See scanned report 09/12/16 09:59 dRVVT Mix Interpret See scanned report 09/12/16 09:59 Protein C Antigen 122 % (70-140) 09/08/16 15:35 Free Protein S 97 % normal (50-147) 09/08/16 15:35 Total Protein S 109 % (70-140) 09/08/16 15:35 Antithrombin III Ag 100 % (80-120) 09/08/16 15:35 Heparin Anti-Xa, Unfract Negative (Negative) 09/29/16 13:35 Factor V Activity 182 % (65-150) H 09/08/16 15:35 POC ABG pH 7.518 (7.35-7.45) H 03/03/17 20:17 ABG pH 7.450 pH Units (7.350-7.450) 12/05/16 Unknown POC ABG pCO2 28.8 (35-45) L 03/03/17 20:17 ABG pCO2 29.6 mm Hg 12/05/16 Unknown POC ABG pO2 61 (80-105) L 03/03/17 20: ABG pO2 75.2 mm Hg (80.0-90.0) L 12/05/16 Unknown POC ABG HCO3 23.4 03/03/17 20: ABG HCO3 20.1 mmol/L (20.0-26.0) 12/05/16 Unknown POC ABG Total CO2 24 03/03/17 20:17 POC ABG O2 Sat 94 03/03/17 20:17 ABG O2 Saturation 96.8 % (95.0-99.0) 12/05/16 Unknown ABG O2 Content 9.9 (0.0-44) 12/05/16 Unknown POC ABG Base Excess 0 03/03/17 20:17 ABG Base Excess -3.4 mmol/L (-2.0-3.0) L 12/05/16 Unknown ABG Hemoglobin 7.4 gm/dl (12.0-16.0) L 12/05/16 Unknown ABG Carboxyhemoglobin 1.8 % (0.0-5.0) 12/05/16 Unknown ABG Methemoglobin 0.6 % (0.0-1.5) 12/05/16 Unknown Oxyhemoglobin 94.5 % (95.0-99.0) L 12/05/16 Unknown FiO2 40 % 03/03/17 20:17 Sodium 136 mmol/L (137-145) L 03/23/17 05:30 Potassium 3.8 mmol/L (3.6-5.0) 03/23/17 05:30 Chloride 99.2 mmol/L (98-107) 03/23/17 05:30 Carbon Dioxide 27 mmol/L (22-30) 03/23/17 05:30 Anion Gap 14 mmol/L 03/23/17 05:30 BUN 17 mg/dL (7-17) 03/23/17 05:30 Creatinine 1.4 mg/dL (0.7-1.2) H 03/23/17 05:30 Estimated GFR 49 ml/min 03/23/17 05:30 BUN/Creatinine Ratio 12 % 03/23/17 05:30 Glucose 89 mg/dL (65-100) 03/23/17 05:30 POC Glucose 90 (70-105) 03/23/17 06:00 Osmolality 351 Mosm/kg 09/16/16 11:47 Lactic Acid 2.30 mmol/L (0.7-2.0) H* 01/09/17 08:22 Calcium 8.2 mg/dL (8.4-10.2) L 03/23/17 05:30 Ionized Calcium 6.0 mg/dL (4.8-5.6) H 02/15/17 19:08 Phosphorus 2.10 mg/dL (2.5-4.5) L D 03/23/17 05:30 Magnesium 1.60 mg/dL (1.7-2.3) L 03/23/17 05:30 Total Bilirubin 0.40 mg/dL (0.1-1.2) 03/20/17 Unknown Direct Bilirubin 0.2 mg/dL (0-0.2) 01/28/17 04:00 Indirect Bilirubin 0.3 mg/dL 01/28/17 04:00 AST 11 units/L (5-40) 03/20/17 Unknown ALT 6 units/L (7-56) L 03/20/17 Unknown Alkaline Phosphatase 97 units/L (35-129) 03/20/17 Unknown Ammonia 27.0 umol/L (25-60) 09/07/16 08:37 Lactate Dehydrogenase 170 units/L (91-180) 01/13/17 15:50 Total Creatine Kinase 121 units/L (30-135) 09/29/16 20:12 CK-MB (CK-2) < 1.0 ng/mL (0.0-4.0) 09/29/16 20:12 CK-MB (CK-2) Rel Index 0.8 (0-4) 09/29/16 20:12 Troponin T 0.204 ng/mL (0.00-0.029) H* 09/29/16 20:12 C-Reactive Protein 19.50 mg/dL (0.00-1.30) H 03/14/17 12:51 Total Protein 6.9 g/dL (6.3-8.2) 03/20/17 Unknown Albumin 0.9 g/dL (3.9-5) L 03/20/17 Unknown Albumin/Globulin Ratio 0.2 % 03/20/17 Unknown Prealbumin 0.110 g/L (0.200-0.400) L 12/29/16 05:15 Triglycerides 94 mg/dL (2-149) 03/20/17 Unknown Cholesterol 31 mg/dL (50-199) L 09/29/16 20:12 LDL Cholesterol Direct 4 mg/dL (50-130) L 09/29/16 20:12 HDL Cholesterol 3 mg/dL (40-59) L 09/29/16 20:12 Cholesterol/HDL Ratio 10.33 % 09/29/16 20:12 Angiotensin Convert Enz See scanned report 09/08/16 11:48 Renin 0.99 ng/mL/h (0.25-5.82) 10/07/16 10:56 Aldosterone <1 ng/dL () 10/07/16 10:56 Aldosterone/Renin Dir see below 10/07/16 10:56 Serotonin Release Assay See scanned report 09/29/16 13:35 25-OH Vitamin D Total 13 ng/mL (30-100) L 02/15/17 19:08 25-Hydroxy Vitamin D2 . 02/15/17 19:08 25-Hydroxy Vitamin D3 . 02/15/17 19:08 TSH 1.010 mlU/mL (0.270-4.200) 09/07/16 08:37 HCG, Qual Negative (Negative) 09/03/16 00:10 PTH Intact 10.88 pg/mL (15-65) L 02/15/17 19:08 Total Cortisol 18.2 mcg/dL () 02/02/17 20:09 Urine Color Yellow (Yellow) 11/05/16 13:09 Urine Turbidity Clear (Clear) 11/05/16 13:09 Urine pH 9.0 (5.0-7.0) H 11/05/16 13:09 Ur Specific [place] 1.011 (1.003-1.030) 11/05/16 13:09 Urine Protein 100 mg/dl mg/dL (Negative) 11/05/16 13:09 Urine Glucose (UA) Neg mg/dL (Negative) 11/05/16 13:09 Urine Ketones Neg mg/dL (Negative) 11/05/16 13:09 Urine Blood Neg (Negative) 11/05/16 13:09 Urine Nitrite Neg (Negative) 11/05/16 13:09 Urine Bilirubin Neg (Negative) 11/05/16 13:09 Urine Urobilinogen < 2.0 mg/dL (<2.0) 11/05/16 13:09 Ur Leukocyte Esterase Neg (Negative) 11/05/16 13:09 Urine WBC (Auto) 4.0 /HPF (0.0-6.0) 11/05/16 13:09 Urine RBC (Auto) 1.0 /HPF (0.0-6.0) 11/05/16 13:09 U Epithel Cells (Auto) 1.0 /HPF (0-13.0) 10/07/16 18:30 Urine Bacteria (Auto) 4+ /HPF (Negative) 11/05/16 13:09 Urine WBC Clumps 2+ /HPF 09/07/16 02:47 Hyaline Casts 4 /LPF 09/07/16 02:47 Urine Mucus Few /HPF 10/07/16 18:30 Urine Yeast (Budding) 3+ /HPF 10/07/16 18:30 Urine Eosinophils None seen (None Seen) 09/07/16 16:00 Urine Total Volume 950 11/12/16 10:18 Urine Creatinine 19.7 mg/dL (0.1-20.0) 11/12/16 10:18 Height (in) 65.0 inches 11/12/16 10:18 Weight (lb) 181.0 lbs 11/12/16 10:18 Creatinine Clearance 5 11/12/16 10:18 Urine Sodium 36 mEq/L 09/16/16 19:19 Urine Total Protein 16 mg/dL (5-11.8) H 09/16/16 19:19 Fluid Type Pleural 01/13/17 12:10 Fluid Color Yellow 01/13/17 12:10 Fluid Appearance Hazy 01/13/17 12:10 Fluid WBC 182 /mm3 01/13/17 12:10 Fluid RBC 41 /mm3 01/13/17 12:10 Fluid Seg Neutrophils 85.0 % 01/13/17 12:10 Fluid Lymphocytes 8.0 % 01/13/17 12:10 Fluid Reactive Lymphs 0 % 01/13/17 12:10 Fluid Monocytes 6.0 % 01/13/17 12:10 Fluid Eosinophils 1.0 % 01/13/17 12:10 Fluid Basophils 0 % 01/13/17 12:10 Fluid Total Protein 3.0 (15.0-45.0) L 01/13/17 12:10 Fluid LDH 1322 01/13/17 12:10 Fluid Comment Diff performed 01/13/17 12:10 Vancomycin Trough 2.3 ug/mL (5.0-20.0) L 09/21/16 13:00 Random Vancomycin 26.0 ug/mL (0-40.0) 03/13/17 05:39 Urine Opiates Screen Presumptive negative 09/03/16 15:11 Urine Methadone Screen Presumptive positive 09/03/16 15:11 Ur Barbiturates Screen Presumptive positive 09/03/16 15:11 Ur Phencyclidine Scrn Presumptive negative 09/03/16 15:11 Ur Amphetamines Screen Presumptive negative 09/03/16 15:11 U Benzodiazepines Scrn Presumptive negative 09/03/16 15:11 Urine Cocaine Screen Presumptive negative 09/03/16 15:11 U Marijuana (THC) Screen Presumptive positive 09/03/16 15:11 Drugs of Abuse Note Disclamer 09/03/16 15:11 Rheumatoid Factor 24 IU/ml (0-13) H 09/08/16 11:48 SAHIL Screen Negative (Negative) 09/07/16 09:20 Proteinase 3 (PR3) Ab <1.0 AI (<1.0) 09/07/16 09:20 Myeloperoxidase Ab <1.0 AI (<1.0) 09/07/16 09:20 Sjogren's Antibody <1.0 AI (<1.0) 09/08/16 15:35 Scl-70 Scleroderma Ab <1.0 AI (<1.0) 09/08/16 15:35 Centromere B Antibody <1.0 AI (<1.0) 09/08/16 12:02 Heparin-induced Plt Ab Negative (Negative) 09/29/16 13:35 UF Heparin High Dose 11 % Release 09/29/16 13:35 SUDHIR UFH Low Dose 0.1 6 % Release 09/29/16 13:35 SUDHIR UFH Low Dose 0.5 8 % Release 09/29/16 13:35 Cardiolipid IgG Ab <14 GPL (<=14) 09/12/16 09:59 Cardiolipid IgA Ab <11 APL (<=11) 09/12/16 09:59 Cardiolipid IgM Ab <12 MPL (<=12) 09/12/16 09:59 Complement C3 148 mg/dL (90-180) 09/07/16 09:20 Complement C4 58 mg/dL (16-47) H 09/07/16 09:20 RPR Nonreactive (Nonreactive) 09/08/16 11:48 Hepatitis A IgM Ab Non-reactive (NonReactive) 09/24/16 14:40 Hep Bs Antigen Non-reactive (Negative) 09/24/16 14:40 Hep B Core IgM Ab Non-reactive (NonReactive) 09/24/16 14:40 Hepatitis C Antibody Non-reactive (NonReactive) 09/24/16 14:40 HIV 1&2 Antibody Rapid Non react (Non React) 09/08/16 11:48 HIV P24 Antigen Non react (Non React) 09/08/16 11:48 Miscellaneous Test Flexitest 1 H 01/09/17 18:45 Blood Type A POSITIVE 03/20/17 16:00 Antibody Screen Negative 03/20/17 16:00 DELORIS Antibody Screen Negative 11/24/16 11:20 Crossmatch See Detail 03/20/17 16:00
--- NOTE | 2017-03-23 08:36 | Progress Note ---
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 Patient's serum creatinine is noted to be low - due to wasting of muscle mass. Needs to be maintained on dialysis at this time. * Abx per ID * Adjust Ca bath with dialysis * Rate control per cardiology * Transfuse pRBC per primary team. Epogen TIW prn * Vent management per pulm/CCM * Pressors prn for MAP>65 * Dose medications for renal function Subjective Date of service: 03/23/17 Principal diagnosis: Acute resp failure on MVS; S/P Acute CVA; Acute Encephalopathy; JUANITA Interval history: 24h events reviewed Objective - Vital Signs Vital signs: Vital Signs - 12hr 03/22/17 03/22/17 03/22/17 21:00 22:00 23:00 Temperature Pulse Rate Pulse Rate [ From Monitor] Pulse Rate [ 91 H 89 94 H None] Respiratory 14 12 19 Rate Blood Pressure 109/68 105/59 111/66 O2 Sat by Pulse 100 99 98 Oximetry O2 Sat by Pulse Oximetry [ Assessment] 03/22/17 03/23/17 03/23/17 23:52 00:00 01:00 Temperature 98.7 F Pulse Rate 98 H Pulse Rate [ From Monitor] Pulse Rate [ 79 96 H None] Respiratory 14 16 Rate Blood Pressure 112/67 104/66 103/60 O2 Sat by Pulse 94 97 96 Oximetry O2 Sat by Pulse 94 Oximetry [ Assessment] 03/23/17 03/23/17 03/23/17 02:00 03:00 04:00 Temperature 97.0 F L Pulse Rate Pulse Rate [ 100 H From Monitor] Pulse Rate [ 100 H 97 H 100 H None] Respiratory 20 19 16 Rate Blood Pressure 104/57 93/50 101/57 O2 Sat by Pulse 87 86 89 Oximetry O2 Sat by Pulse Oximetry [ Assessment] 03/23/17 03/23/17 05:22 08:00 Temperature 98.3 F Pulse Rate 100 H Pulse Rate [ From Monitor] Pulse Rate [ None] Respiratory Rate Blood Pressure 96/53 O2 Sat by Pulse 95 Oximetry O2 Sat by Pulse Oximetry [ Assessment] - General Appearance General appearance: chronically ill EENT: ATNC Neck: other (Trach) Respiratory: Present: Other (Coarse BS) Cardiology: tachycardia Gastrointestinal: hypoactive bowel sounds Neurologic: other (does not respond to tactile or verbal stimuli) Musculoskeletal: other (dependent edema) - Lab 03/23/17 05:30 03/23/17 05:30 Most recent lab results ABG pH 7.450 pH Units (7.350-7.450) 12/05/16 Unknown ABG pCO2 29.6 mm Hg 12/05/16 Unknown ABG pO2 75.2 mm Hg (80.0-90.0) L 12/05/16 Unknown ABG HCO3 20.1 mmol/L (20.0-26.0) 12/05/16 Unknown ABG O2 Saturation 96.8 % (95.0-99.0) 12/05/16 Unknown Calcium 8.2 mg/dL (8.4-10.2) L 03/23/17 05:30 Phosphorus 2.10 mg/dL (2.5-4.5) L D 03/23/17 05:30 Magnesium 1.60 mg/dL (1.7-2.3) L 03/23/17 05:30 Urine Creatinine 19.7 mg/dL (0.1-20.0) 11/12/16 10:18 Urine Sodium 36 mEq/L 09/16/16 19:19 Urine Total Protein 16 mg/dL (5-11.8) H 09/16/16 19:19
[2017-03-23] MEDS ORDERED: MAGNESIUM SULFATE 2GM/50ML 2 GM/50 ML BAG IV ONE ×2 (09:00→15:00)
[2017-03-23] MEDS: DUONEB *Not for PRN Use IH SCH ×3 (09:04→20:10)
[2017-03-23] MEDS: DURAGESIC TD SCH (11:46)
[2017-03-23] MEDS: PEPCID IV SCH (11:47)
[2017-03-23] MEDS: HEPARIN SUB-Q SCH (11:47)
[2017-03-23] MEDS: MAXIPIME 1 GM in NACL 0.9% 20 ML IV SCH (11:48)
[2017-03-23] MEDS ORDERED: TPN ADULT IV SCH (20:00)
--- NOTE | 2017-03-23 21:11 | Progress Note ---
Assessment and Plan Assessment: 1) Recurrent SIRS: new septic shock - resolved - Likely due to intra-abdominal abscess 2) History of Peritonitis: from gastric perforation from dislodged PEG with significant ascites -S/P exlap, repair of gastric perforation with wedge gastrectomy, abdominal washout, drain placement on 10/05 3) History of Candidemia: -Blood cultures positive for Silvia albicans on 09/23 and 09/25 -Blood cultures negative on 09/30 -PICC line changed on 10/03 -Source ? gastric perf (PEG placed on 09/20) +/- TPN +/- central lines -TTE 10/07 no vegetations -PICC exchanged on 10/03 -fully treated with micafungin for 14 days last day 10/13 4) History CA-UTI s/p gutierrez exchanged 5) Diarrhea - ? etiology ? antibiotic-induced, not better. 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 from GI bleed 13) Recent abdominal wall abscess at surgical site-treated 14 ) Recent Enterococcal bacteremia from PICC line infection. 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 -S/P debridement at bedside - new wound cx 01/24 +Proteus and MDR Pseudomonas (resistant to meropenem and cefepime/sensitive to ceftazidime) and wound VAC placement -CRP=24 --> 8 16) Presumed VAP: sputum + MDR Pseudomonas / Proteus / pleural effusion s/p thoracentesis 17) Resp failure - better 18) Perforated bowel: Ct showed presumed perf bowel with free air -repeat CT showed large 21x4.2 cm collection -s/p CT guided drainage -30 mL's of dark purulent fluid was aspirated 19) Enterococcal septicemia from IV cath. TTE no vegetations 18) PIV site infection s/p line removed on 03/09 tip + Enterococcus Plan: -f/u drainage cultures -stop cefepime and flagyl -start zosyn and dapto for MDR Pseudomonas/Preteus/VRE -remove femoral cath poor prognosis Thank you for your consultation, will follow up with you. Pauline Carias MD Infectious Diseases Specialist [facility] ([facility]) M [phone] O [phone] Subjective Date of service: 03/23/17 Principal diagnosis: Acute resp failure on MVS; S/P Acute CVA; Acute Encephalopathy; JUANITA Interval history: Interval history: remains on the vent, tachy on monitor, on amiodarone gtt, fever resolved, off levophed Microbiology: Blood cultures: 09/13 neg 09/23 Silvia albicans 09/25 Silvia 09/29 neg 10/07 neg 11/05 neg 11/07 ngtd 11/22 E faecalis 1 of 4 bottles 11/25 neg 12/27 neg 01/09 ngtd 02/14 ngtd 02/27 Enterococcus durans 1 of 4 bottles 03/06 ngtd PIV tip 03/09 Enterococcus, [employer], Proteus Urine cultures: 09/10 neg 09/13 neg 8/ 10-100K mixed species 10/07 neg 11/05 VRE 11/07 mixed bacteria Respiratory cultures: 09/07 neg 09/13 neg 09/23 neg 11/07 MDR Pseudomonas 11/21 tracheal + VRE 01/09 Pseudomonas x 3 and Proteues Pleural effusion: ngtd Wound cultures: 10/17 abd wall wound purulence + Pseudomonas MDR 01/24 GNRs 03/15 drainage - Proteus sen to zosyn, Pseudomonas sens zosyn, GNR x 1 and VRE Stool cultures: cath tip 11/07 + [employer] Current Antimicrobials: cefepime 03/09 flagyl 03/09 vanco Previous Antimicrobials: Zosyn 10/07 Vancomycin PO 10/01 Metronidazole 09/25 Micafungin 09/27-10/13 Meropenem 10/10 Vanco 10/17 zosyn 10/21 Cefepime 11/10 vancomyin 11/07 fluconazole 10/19 cefepime 10/29levaquin 11/05 vanco 11/23 meropenem 01/08 ceftaz 01/30 Objective - Exam Narrative Exam: General appearance: alert non communicative, on the vent via trach in mild resp distress, no following commands Eyes: anicteric sclera, moist conjunctivae; PERRLA HENT: Atraumatic; oropharynx limited; Normal external ears. +NGT with greenish secretion Neck: +trach in place; supple, no thyromegaly or lymphadenopathy Lungs: brit coarse BS CV: tachy Abdomen: Soft, tender, +old PEG site no drainage. +iliostomy. Right sided Surgical site x 2 with ostomy bags. +drain with clear Extremities: +peripheral edema Skin: sacral area wounds - per wound care STAGE 4 PRESSURE INJURY TO SACRAL MEASURES 7.5X6X2.5, WITH UNDERMINING FROM @9-1 OCLOCK-2.8CM-ULCER CLEANED WITH WOUND DIRECTOR [employer]-ULCER NEW - Sacrum wound measuring 9x11cm. Necrotic tissue noted on the wound edges and in the wound bed Now with a wound VAC Psych: somnolent . Neuro: alert non verbal on the vent. Lines: PICC / gutierrez - Constitutional Vitals: Vital Signs Temp Pulse Resp BP Pulse Ox 98.9 F 108 H 12 98/59 100 03/23/17 19:58 03/23/17 20:48 03/23/17 20:48 03/23/17 20:11 03/23/17 20:11 Temperature -Last 24 Hours Temperature 98.9 F Temperature 97.9 F Temperature 98.4 F Temperature 98.3 F Temperature 97.0 F Temperature 98.7 F - Labs CBC & Chem 7: 03/23/17 05:30 03/23/17 05:30 Labs: Abnormal lab results 03/23/17 03/23/17 03/23/17 Range/Units 05:30 05:30 11:18 RBC 2.50 L (3.65-5.03) M/mm3 Hgb 8.0 L (10.1-14.3) gm/dl Hct 24.1 L (30.3-42.9) % RDW 22.2 H (13.2-15.2) % Seg Neutrophils % 72.3 H (40.0-70.0) % Sodium 136 L (137-145) mmol/L Creatinine 1.4 H (0.7-1.2) mg/dL POC Glucose 111 H (70-105) Calcium 8.2 L (8.4-10.2) mg/dL Phosphorus 2.10 L D (2.5-4.5) mg/dL Magnesium 1.60 L (1.7-2.3) mg/dL
[2017-03-23] MEDS ORDERED: CUBICIN IV SCH (22:00)
[2017-03-23] MEDS ORDERED: NACL 0.9% IV SCH (22:00)
[2017-03-23] MEDS: ZOSYN/NS 4.5GM/100ML 4.5 GM/100 ML VIAL IV SCH (23:18)
[2017-03-24] MEDS: LOPRESSOR IV SCH ×4 (02:00→21:16)
[2017-03-24] MEDS: HEPARIN SUB-Q SCH ×3 (05:27→21:11)
[2017-03-24] MEDS: ZOSYN/NS 4.5GM/100ML 4.5 GM/100 ML VIAL IV SCH (05:30)
[2017-03-24] MEDS: HumuLIN R SUB-Q SCH ×4 (08:07→17:52)
[2017-03-24] MEDS: DUONEB *Not for PRN Use IH SCH ×3 (08:34→20:20)
--- NOTE | 2017-03-24 08:46 | Progress Note ---
Assessment and Plan Assessment * Oliguric acute kidney injury secondary to ATN on CKD - baseline SCr 1.7mg/dL; likely now ESRD --Patient's serum creatinine is noted to be low - due to wasting of muscle mass. Needs to be maintained on dialysis at this time. 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 * Note ID recommendations to remove femoral vas cath, will discuss with vascular surgery * Abx per ID * Adjust Ca bath with dialysis * Rate control per cardiology * Transfuse pRBC per primary team. Epogen TIW prn * Vent management per pulm/CCM * Pressors prn for MAP>65 * Dose medications for renal function Subjective Date of service: 03/24/17 Principal diagnosis: Acute resp failure on MVS; S/P Acute CVA; Acute Encephalopathy; JUANITA Interval history: 24h events noted Objective - Vital Signs Vital signs: Vital Signs - 12hr 03/23/17 03/23/17 03/23/17 20:48 21:00 21:15 Temperature Pulse Rate 110 H 107 H Pulse Rate [ Anterior Bilateral Throughout] Pulse Rate [ 108 H Throughout] Respiratory 15 15 Rate Respiratory Rate [Anterior Bilateral Throughout] Respiratory 12 Rate [ Throughout] Blood Pressure 113/66 101/60 O2 Sat by Pulse 100 Oximetry O2 Sat by Pulse Oximetry [ Assessment] 03/23/17 03/23/17 03/23/17 21:30 21:45 22:00 Temperature Pulse Rate 107 H 106 H 106 H Pulse Rate [ Anterior Bilateral Throughout] Pulse Rate [ Throughout] Respiratory 16 16 17 Rate Respiratory Rate [Anterior Bilateral Throughout] Respiratory Rate [ Throughout] Blood Pressure 102/59 100/58 98/57 O2 Sat by Pulse 100 Oximetry O2 Sat by Pulse Oximetry [ Assessment] 03/23/17 03/23/17 03/23/17 22:15 22:30 22:45 Temperature Pulse Rate 105 H 107 H 107 H Pulse Rate [ Anterior Bilateral Throughout] Pulse Rate [ Throughout] Respiratory 14 17 17 Rate Respiratory Rate [Anterior Bilateral Throughout] Respiratory Rate [ Throughout] Blood Pressure 97/56 100/55 96/59 O2 Sat by Pulse 100 Oximetry O2 Sat by Pulse Oximetry [ Assessment] 03/23/17 03/23/17 03/23/17 23:00 23:02 23:15 Temperature Pulse Rate 110 H 108 H 109 H Pulse Rate [ Anterior Bilateral Throughout] Pulse Rate [ Throughout] Respiratory 15 14 16 Rate Respiratory Rate [Anterior Bilateral Throughout] Respiratory Rate [ Throughout] Blood Pressure 113/62 113/62 105/63 O2 Sat by Pulse 100 100 Oximetry O2 Sat by Pulse Oximetry [ Assessment] 03/23/17 03/23/17 03/23/17 23:30 23:34 23:36 Temperature Pulse Rate 109 H 108 H Pulse Rate [ Anterior Bilateral Throughout] Pulse Rate [ Throughout] Respiratory 15 Rate Respiratory Rate [Anterior Bilateral Throughout] Respiratory Rate [ Throughout] Blood Pressure 104/60 113/62 O2 Sat by Pulse 100 100 Oximetry O2 Sat by Pulse 100 Oximetry [ Assessment] 03/23/17 03/23/17 03/24/17 23:45 23:51 00:00 Temperature 98.9 F Pulse Rate 107 H 107 H Pulse Rate [ Anterior Bilateral Throughout] Pulse Rate [ Throughout] Respiratory 16 16 Rate Respiratory Rate [Anterior Bilateral Throughout] Respiratory Rate [ Throughout] Blood Pressure 103/61 110/65 O2 Sat by Pulse 100 100 Oximetry O2 Sat by Pulse Oximetry [ Assessment] 03/24/17 03/24/17 03/24/17 00:15 00:30 00:45 Temperature Pulse Rate 108 H 106 H 109 H Pulse Rate [ Anterior Bilateral Throughout] Pulse Rate [ Throughout] Respiratory 15 16 16 Rate Respiratory Rate [Anterior Bilateral Throughout] Respiratory Rate [ Throughout] Blood Pressure 109/58 90/55 92/59 O2 Sat by Pulse 100 100 Oximetry O2 Sat by Pulse Oximetry [ Assessment] 03/24/17 03/24/17 03/24/17 01:00 01:15 01:30 Temperature Pulse Rate 105 H 107 H 107 H Pulse Rate [ Anterior Bilateral Throughout] Pulse Rate [ Throughout] Respiratory 16 14 14 Rate Respiratory Rate [Anterior Bilateral Throughout] Respiratory Rate [ Throughout] Blood Pressure 104/53 104/58 106/58 O2 Sat by Pulse 100 100 Oximetry O2 Sat by Pulse Oximetry [ Assessment] 03/24/17 03/24/17 03/24/17 01:45 02:00 02:15 Temperature Pulse Rate 106 H 106 H 107 H Pulse Rate [ Anterior Bilateral Throughout] Pulse Rate [ Throughout] Respiratory 14 15 14 Rate Respiratory Rate [Anterior Bilateral Throughout] Respiratory Rate [ Throughout] Blood Pressure 96/61 104/53 94/56 O2 Sat by Pulse 100 Oximetry O2 Sat by Pulse Oximetry [ Assessment] 03/24/17 03/24/17 03/24/17 02:30 02:45 03:00 Temperature Pulse Rate 107 H 103 H Pulse Rate [ Anterior Bilateral Throughout] Pulse Rate [ Throughout] Respiratory 24 22 18 Rate Respiratory Rate [Anterior Bilateral Throughout] Respiratory Rate [ Throughout] Blood Pressure 107/53 96/53 94/52 O2 Sat by Pulse 100 100 Oximetry O2 Sat by Pulse Oximetry [ Assessment] 03/24/17 03/24/17 03/24/17 03:15 03:30 03:45 Temperature Pulse Rate 107 H 107 H 108 H Pulse Rate [ Anterior Bilateral Throughout] Pulse Rate [ Throughout] Respiratory 25 H 18 22 Rate Respiratory Rate [Anterior Bilateral Throughout] Respiratory Rate [ Throughout] Blood Pressure 110/61 115/60 111/63 O2 Sat by Pulse 100 100 Oximetry O2 Sat by Pulse Oximetry [ Assessment] 03/24/17 03/24/17 03/24/17 04:00 04:05 04:15 Temperature 99.1 F Pulse Rate 108 H 109 H 109 H Pulse Rate [ Anterior Bilateral Throughout] Pulse Rate [ Throughout] Respiratory 14 19 Rate Respiratory Rate [Anterior Bilateral Throughout] Respiratory Rate [ Throughout] Blood Pressure 113/65 115/60 107/65 O2 Sat by Pulse 100 Oximetry O2 Sat by Pulse Oximetry [ Assessment] 03/24/17 03/24/17 03/24/17 04:30 04:45 05:00 Temperature Pulse Rate 107 H 107 H 106 H Pulse Rate [ Anterior Bilateral Throughout] Pulse Rate [ Throughout] Respiratory 14 16 15 Rate Respiratory Rate [Anterior Bilateral Throughout] Respiratory Rate [ Throughout] Blood Pressure 101/60 100/62 106/63 O2 Sat by Pulse 100 100 Oximetry O2 Sat by Pulse Oximetry [ Assessment] 03/24/17 03/24/17 03/24/17 05:15 05:30 05:45 Temperature Pulse Rate 105 H 108 H 109 H Pulse Rate [ Anterior Bilateral Throughout] Pulse Rate [ Throughout] Respiratory 17 15 17 Rate Respiratory Rate [Anterior Bilateral Throughout] Respiratory Rate [ Throughout] Blood Pressure 106/62 106/62 114/69 O2 Sat by Pulse 100 100 100 Oximetry O2 Sat by Pulse Oximetry [ Assessment] 03/24/17 03/24/17 03/24/17 06:00 06:15 06:30 Temperature Pulse Rate 105 H 105 H 106 H Pulse Rate [ Anterior Bilateral Throughout] Pulse Rate [ Throughout] Respiratory 14 17 15 Rate Respiratory Rate [Anterior Bilateral Throughout] Respiratory Rate [ Throughout] Blood Pressure 107/62 105/63 115/62 O2 Sat by Pulse 100 Oximetry O2 Sat by Pulse Oximetry [ Assessment] 03/24/17 03/24/17 03/24/17 06:45 07:00 07:15 Temperature Pulse Rate 105 H 111 H 113 H Pulse Rate [ Anterior Bilateral Throughout] Pulse Rate [ Throughout] Respiratory 13 26 H 16 Rate Respiratory Rate [Anterior Bilateral Throughout] Respiratory Rate [ Throughout] Blood Pressure 106/63 122/84 122/71 O2 Sat by Pulse 100 99 Oximetry O2 Sat by Pulse Oximetry [ Assessment] 03/24/17 03/24/17 03/24/17 07:30 07:45 08:00 Temperature 98.5 F Pulse Rate 110 H 107 H 107 H Pulse Rate [ Anterior Bilateral Throughout] Pulse Rate [ Throughout] Respiratory 13 15 15 Rate Respiratory Rate [Anterior Bilateral Throughout] Respiratory Rate [ Throughout] Blood Pressure 111/68 111/61 111/60 O2 Sat by Pulse 100 100 Oximetry O2 Sat by Pulse Oximetry [ Assessment] 03/24/17 08:30 Temperature Pulse Rate 105 H Pulse Rate [ 105 H Anterior Bilateral Throughout] Pulse Rate [ Throughout] Respiratory Rate Respiratory 12 Rate [Anterior Bilateral Throughout] Respiratory Rate [ Throughout] Blood Pressure 100/58 O2 Sat by Pulse 100 Oximetry O2 Sat by Pulse Oximetry [ Assessment] - General Appearance General appearance: chronically ill EENT: ATNC Neck: other (Trach) Respiratory: Present: Other (coarse breath sounds) Cardiology: regular, S1S2 Gastrointestinal: hypoactive bowel sounds Neurologic: other (does not respond to tactile or verbal stimuli) Musculoskeletal: other (dependent edema) - Lab 03/23/17 05:30 03/24/17 05:50 Most recent lab results ABG pH 7.450 pH Units (7.350-7.450) 12/05/16 Unknown ABG pCO2 29.6 mm Hg 12/05/16 Unknown ABG pO2 75.2 mm Hg (80.0-90.0) L 12/05/16 Unknown ABG HCO3 20.1 mmol/L (20.0-26.0) 12/05/16 Unknown ABG O2 Saturation 96.8 % (95.0-99.0) 12/05/16 Unknown Calcium 9.0 mg/dL (8.4-10.2) 03/24/17 05:50 Phosphorus 3.70 mg/dL (2.5-4.5) D 03/24/17 05:50 Magnesium 2.30 mg/dL (1.7-2.3) 03/24/17 05:50 Urine Creatinine 19.7 mg/dL (0.1-20.0) 11/12/16 10:18 Urine Sodium 36 mEq/L 09/16/16 19:19 Urine Total Protein 16 mg/dL (5-11.8) H 09/16/16 19:19
[2017-03-24] MEDS: PEPCID IV SCH (09:11)
[2017-03-24] MEDS: CORDARONE 900 MG in D5W 482 ML IV SCH (09:12)
--- NOTE | 2017-03-24 10:06 | Progress Note ---
Assessment and Plan Assessment and plan: --Acute respiratory failure/status post tracheostomy/ventilator dependent/ continue current management --Aspiration pneumonia/managed with multiple antibiotics per ID recommendations , continue current treatment --Status post cardiac arrest/anoxic encephalopathy/vegetative state --Large CVA with mass effect/anoxic brain injury --Perforated bowel/drainage of large fluid collection, continue supportive care --Peritonitis/gastric perforation/status post laparotomy/on TPN --A. fib with rapid ventricular rate/continue amiodarone --Sepsis/recurrent enterococcal infection/ID following/continue current antibiotics --Hypotension/septic shock requiring Levophed, closely monitor --End-stage renal disease; on hemodialysis, nephrology following --Multiple sacral decubiti stage III to stage IV, post debridement, continue wound care --Severe protein calorie malnutrition; continue TPN, supportive care --DO NOT RESUSCITATE status Very poor prognosis, family aware, recommend hospice, family not willing Unable to place in LTAC/SNF, Multiple social issues As the monitor the patient and adjust the management as needed Plan of care discussed with the patient's nurse and case management Critical care time 31 minutes History Interval history: Patient seen and examined medical records reviewed Clinically no change Intubated via trach vent dependent Vital signs reviewed Hospitalist Physical - Constitutional Vitals: Temp Pulse Resp BP Pulse Ox 98.5 F 107 H 40 H 113/68 100 03/24/17 08:00 03/24/17 09:15 03/24/17 09:15 03/24/17 09:15 03/24/17 09:15 General appearance: Present: no acute distress, cachectic, other (spontaneous opening of eyes, unresponsive) - EENT Eyes: Present: PERRL, EOM intact - Neck Neck: Present: supple, normal ROM - Respiratory Respiratory effort: normal Respiratory: bilateral: diminished, rales, rhonchi - Cardiovascular Rhythm: regular Heart Sounds: Present: S1 & S2 - Extremities Extremities: abnormal (contracted) Extremity abnormal: edema (chronic changes) - Integumentary Integumentary: Present: clear, warm - Psychiatric Psychiatric: other (noncommunicative) - Neurologic Neurologic: other (noncommunicative) Results - Labs CBC & Chem 7: 03/23/17 05:30 03/24/17 05:50 Labs: Laboratory Last Values WBC 10.4 K/mm3 (4.5-11.0) 03/23/17 05:30 RBC 2.50 M/mm3 (3.65-5.03) L 03/23/17 05:30 Hgb 8.0 gm/dl (10.1-14.3) L 03/23/17 05:30 Hct 24.1 % (30.3-42.9) L 03/23/17 05:30 MCV 96 fl (79-97) 03/23/17 05:30 MCH 32 pg (28-32) 03/23/17 05:30 MCHC 33 % (30-34) 03/23/17 05:30 RDW 22.2 % (13.2-15.2) H 03/23/17 05:30 Plt Count 183 K/mm3 (140-440) 03/23/17 05:30 Lymph % (Auto) 20.0 % (13.4-35.0) 03/23/17 05:30 Weld % (Auto) 5.9 % (0.0-7.3) 03/23/17 05:30 Eos % (Auto) 0.8 % (0.0-4.3) 03/23/17 05:30 Baso % (Auto) 1.0 % (0.0-1.8) 03/23/17 05:30 Lymph # 2.1 K/mm3 (1.2-5.4) 03/23/17 05:30 Weld # 0.6 K/mm3 (0.0-0.8) 03/23/17 05:30 Eos # 0.1 K/mm3 (0.0-0.4) 03/23/17 05:30 Baso # 0.1 K/mm3 (0.0-0.1) 03/23/17 05:30 Add Manual Diff Complete 03/14/17 14:30 Total Counted 100 03/14/17 14:30 Seg Neutrophils % 72.3 % (40.0-70.0) H 03/23/17 05:30 Seg Neuts % (Manual) 70.0 % (40.0-70.0) 03/14/17 14:30 Band Neutrophils % 0 % 03/14/17 14:30 Lymphocytes % (Manual) 13.0 % (13.4-35.0) L 03/14/17 14:30 Reactive Lymphs % (Man) 1.0 % 03/14/17 14:30 Monocytes % (Manual) 15.0 % (0.0-7.3) H 03/14/17 14:30 Eosinophils % (Manual) 1.0 % (0.0-4.3) 03/14/17 14:30 Basophils % (Manual) 0 % (0.0-1.8) 03/14/17 14:30 Metamyelocytes % 0 % 03/14/17 14:30 Myelocytes % 0 % 03/14/17 14:30 Promyelocytes % 0 % 03/14/17 14:30 Blast Cells % 0 % 03/14/17 14:30 Nucleated RBC % Not Reportable 03/14/17 14:30 Seg Neutrophils # 7.5 K/mm3 (1.8-7.7) 03/23/17 05:30 Seg Neutrophils # Man 12.3 K/mm3 (1.8-7.7) H 03/14/17 14:30 Band Neutrophils # 0.0 K/mm3 03/14/17 14:30 Lymphocytes # (Manual) 2.3 K/mm3 (1.2-5.4) 03/14/17 14:30 Abs React Lymphs (Man) 0.2 K/mm3 03/14/17 14:30 Monocytes # (Manual) 2.6 K/mm3 (0.0-0.8) H 03/14/17 14:30 Eosinophils # (Manual) 0.2 K/mm3 (0.0-0.4) 03/14/17 14:30 Basophils # (Manual) 0.0 K/mm3 (0.0-0.1) 03/14/17 14:30 Metamyelocytes # 0.0 K/mm3 03/14/17 14:30 Myelocytes # 0.0 K/mm3 03/14/17 14:30 Promyelocytes # 0.0 K/mm3 03/14/17 14:30 Blast Cells # 0.0 K/mm3 03/14/17 14:30 Pathologist Review 09/13/16 04:00 WBC Morphology Not Reportable 03/14/17 14:30 Hypersegmented Neuts Not Reportable 03/14/17 14:30 Hyposegmented Neuts Not Reportable 03/14/17 14:30 Hypogranular Neuts Not Reportable 03/14/17 14:30 Smudge Cells Not Reportable 03/14/17 14:30 Toxic Granulation Not Reportable 03/14/17 14:30 Toxic Vacuolation Not Reportable 03/14/17 14:30 Dohle Bodies Not Reportable 03/14/17 14:30 Pelger-Huet Anomaly Not Reportable 03/14/17 14:30 Jasmina Rods Not Reportable 03/14/17 14:30 Platelet Estimate Consistent w auto 03/14/17 14:30 Clumped Platelets Not Reportable 03/14/17 14:30 Plt Clumps, EDTA Not Reportable 03/14/17 14:30 Large Platelets Not Reportable 03/14/17 14:30 Giant Platelets Not Reportable 03/14/17 14:30 Platelet Satelliting Not Reportable 03/14/17 14:30 Plt Morphology Comment Not Reportable 03/14/17 14:30 RBC Morphology Not Reportable 03/14/17 14:30 Dimorphic RBCs Not Reportable 03/14/17 14:30 Polychromasia Not Reportable 03/14/17 14:30 Hypochromasia 2+ 03/14/17 14:30 Poikilocytosis Not Reportable 03/14/17 14:30 Anisocytosis 1+ 03/14/17 14:30 Microcytosis Not Reportable 03/14/17 14:30 Macrocytosis Not Reportable 03/14/17 14:30 Spherocytes Not Reportable 03/14/17 14:30 Pappenheimer Bodies Not Reportable 03/14/17 14:30 Sickle Cells Not Reportable 03/14/17 14:30 Target Cells Not Reportable 03/14/17 14:30 Tear Drop Cells Not Reportable 03/14/17 14:30 Ovalocytes Not Reportable 03/14/17 14:30 Stomatocytes 2+ 03/14/17 14:30 Helmet Cells Not Reportable 03/14/17 14:30 [place] Bodies Not Reportable 03/14/17 14:30 Transfer Rings Not Reportable 03/14/17 14:30 Borden Cells Not Reportable 03/14/17 14:30 Bite Cells Not Reportable 03/14/17 14:30 Crenated Cell Not Reportable 03/14/17 14:30 Elliptocytes Not Reportable 03/14/17 14:30 Acanthocytes (Spur) Not Reportable 03/14/17 14:30 Rouleaux Not Reportable 03/14/17 14:30 Hemoglobin C Crystals Not Reportable 03/14/17 14:30 Schistocytes Not Reportable 03/14/17 14:30 Malaria parasites Not Reportable 03/14/17 14:30 ESR > 140.0 mm/Hr (0-20) 09/08/16 11:48 Jun Bodies Not Reportable 03/14/17 14:30 Hem Pathologist Commnt No 03/14/17 14:30 PT 15.4 Sec. (12.2-14.9) H 01/13/17 15:50 INR 1.16 (0.87-1.13) H 01/13/17 15:50 APTT 33.0 Sec. (24.2-36.6) 10/09/16 03:45 Thrombin Time 16.8 Sec. (15.1-19.6) 09/03/16 00:10 Fibrinogen 750 mg/dl (211-480) H 09/08/16 11:48 Lupus Anticoagulant see below 09/12/16 09:59 LA PTT Baseline See scanned report 09/12/16 09:59 dRVVT Confirm Interp Positive (Negative) H 09/12/16 09:59 dRVVT Screen 50:50 See scanned report 09/12/16 09:59 dRVVT Mix Interpret See scanned report 09/12/16 09:59 Protein C Antigen 122 % (70-140) 09/08/16 15:35 Free Protein S 97 % normal (50-147) 09/08/16 15:35 Total Protein S 109 % (70-140) 09/08/16 15:35 Antithrombin III Ag 100 % (80-120) 09/08/16 15:35 Heparin Anti-Xa, Unfract Negative (Negative) 09/29/16 13:35 Factor V Activity 182 % (65-150) H 09/08/16 15:35 POC ABG pH 7.518 (7.35-7.45) H 03/03/17 20: ABG pH 7.450 pH Units (7.350-7.450) 12/05/16 Unknown POC ABG pCO2 28.8 (35-45) L 03/03/17 20:17 ABG pCO2 29.6 mm Hg 12/05/16 Unknown POC ABG pO2 61 (80-105) L 03/03/17 20: ABG pO2 75.2 mm Hg (80.0-90.0) L 12/05/16 Unknown POC ABG HCO3 23.4 03/03/17 20:17 ABG HCO3 20.1 mmol/L (20.0-26.0) 12/05/16 Unknown POC ABG Total CO2 24 03/03/17 20: POC ABG O2 Sat 94 03/03/17 20: ABG O2 Saturation 96.8 % (95.0-99.0) 12/05/16 Unknown ABG O2 Content 9.9 (0.0-44) 12/05/16 Unknown POC ABG Base Excess 0 03/03/17 20: ABG Base Excess -3.4 mmol/L (-2.0-3.0) L 12/05/16 Unknown ABG Hemoglobin 7.4 gm/dl (12.0-16.0) L 12/05/16 Unknown ABG Carboxyhemoglobin 1.8 % (0.0-5.0) 12/05/16 Unknown ABG Methemoglobin 0.6 % (0.0-1.5) 12/05/16 Unknown Oxyhemoglobin 94.5 % (95.0-99.0) L 12/05/16 Unknown FiO2 40 % 03/03/17 20:17 Sodium 138 mmol/L (137-145) 03/24/17 05:50 Potassium 4.5 mmol/L (3.6-5.0) 03/24/17 05:50 Chloride 99.5 mmol/L (98-107) 03/24/17 05:50 Carbon Dioxide 27 mmol/L (22-30) 03/24/17 05:50 Anion Gap 16 mmol/L 03/24/17 05:50 BUN 26 mg/dL (7-17) H 03/24/17 05:50 Creatinine 1.9 mg/dL (0.7-1.2) H 03/24/17 05:50 Estimated GFR 34 ml/min 03/24/17 05:50 BUN/Creatinine Ratio 14 % 03/24/17 05:50 Glucose 85 mg/dL (65-100) 03/24/17 05:50 POC Glucose 88 (70-105) 03/24/17 05:26 Osmolality 351 Mosm/kg 09/16/16 11:47 Lactic Acid 2.30 mmol/L (0.7-2.0) H* 01/09/17 08:22 Calcium 9.0 mg/dL (8.4-10.2) 03/24/17 05:50 Ionized Calcium 6.0 mg/dL (4.8-5.6) H 02/15/17 19:08 Phosphorus 3.70 mg/dL (2.5-4.5) D 03/24/17 05:50 Magnesium 2.30 mg/dL (1.7-2.3) 03/24/17 05:50 Total Bilirubin 0.40 mg/dL (0.1-1.2) 03/20/17 Unknown Direct Bilirubin 0.2 mg/dL (0-0.2) 01/28/17 04:00 Indirect Bilirubin 0.3 mg/dL 01/28/17 04:00 AST 11 units/L (5-40) 03/20/17 Unknown ALT 6 units/L (7-56) L 03/20/17 Unknown Alkaline Phosphatase 97 units/L (35-129) 03/20/17 Unknown Ammonia 27.0 umol/L (25-60) 09/07/16 08:37 Lactate Dehydrogenase 170 units/L (91-180) 01/13/17 15:50 Total Creatine Kinase 121 units/L (30-135) 09/29/16 20:12 CK-MB (CK-2) < 1.0 ng/mL (0.0-4.0) 09/29/16 20:12 CK-MB (CK-2) Rel Index 0.8 (0-4) 09/29/16 20:12 Troponin T 0.204 ng/mL (0.00-0.029) H* 09/29/16 20:12 C-Reactive Protein 19.50 mg/dL (0.00-1.30) H 03/14/17 12:51 Total Protein 6.9 g/dL (6.3-8.2) 03/20/17 Unknown Albumin 0.9 g/dL (3.9-5) L 03/20/17 Unknown Albumin/Globulin Ratio 0.2 % 03/20/17 Unknown Prealbumin 0.110 g/L (0.200-0.400) L 12/29/16 05:15 Triglycerides 94 mg/dL (2-149) 03/20/17 Unknown Cholesterol 31 mg/dL (50-199) L 09/29/16 20:12 LDL Cholesterol Direct 4 mg/dL (50-130) L 09/29/16 20:12 HDL Cholesterol 3 mg/dL (40-59) L 09/29/16 20:12 Cholesterol/HDL Ratio 10.33 % 09/29/16 20:12 Angiotensin Convert Enz See scanned report 09/08/16 11:48 Renin 0.99 ng/mL/h (0.25-5.82) 10/07/16 10:56 Aldosterone <1 ng/dL () 10/07/16 10:56 Aldosterone/Renin Dir see below 10/07/16 10:56 Serotonin Release Assay See scanned report 09/29/16 13:35 25-OH Vitamin D Total 13 ng/mL (30-100) L 02/15/17 19:08 25-Hydroxy Vitamin D2 . 02/15/17 19:08 25-Hydroxy Vitamin D3 . 02/15/17 19:08 TSH 1.010 mlU/mL (0.270-4.200) 09/07/16 08:37 HCG, Qual Negative (Negative) 09/03/16 00:10 PTH Intact 10.88 pg/mL (15-65) L 02/15/17 19:08 Total Cortisol 18.2 mcg/dL () 02/02/17 20:09 Urine Color Yellow (Yellow) 11/05/16 13:09 Urine Turbidity Clear (Clear) 11/05/16 13:09 Urine pH 9.0 (5.0-7.0) H 11/05/16 13:09 Ur Specific [place] 1.011 (1.003-1.030) 11/05/16 13:09 Urine Protein 100 mg/dl mg/dL (Negative) 11/05/16 13:09 Urine Glucose (UA) Neg mg/dL (Negative) 11/05/16 13:09 Urine Ketones Neg mg/dL (Negative) 11/05/16 13:09 Urine Blood Neg (Negative) 11/05/16 13:09 Urine Nitrite Neg (Negative) 11/05/16 13:09 Urine Bilirubin Neg (Negative) 11/05/16 13:09 Urine Urobilinogen < 2.0 mg/dL (<2.0) 11/05/16 13:09 Ur Leukocyte Esterase Neg (Negative) 11/05/16 13:09 Urine WBC (Auto) 4.0 /HPF (0.0-6.0) 11/05/16 13:09 Urine RBC (Auto) 1.0 /HPF (0.0-6.0) 11/05/16 13:09 U Epithel Cells (Auto) 1.0 /HPF (0-13.0) 10/07/16 18:30 Urine Bacteria (Auto) 4+ /HPF (Negative) 11/05/16 13:09 Urine WBC Clumps 2+ /HPF 09/07/16 02:47 Hyaline Casts 4 /LPF 09/07/16 02:47 Urine Mucus Few /HPF 10/07/16 18:30 Urine Yeast (Budding) 3+ /HPF 10/07/16 18:30 Urine Eosinophils None seen (None Seen) 09/07/16 16:00 Urine Total Volume 950 11/12/16 10:18 Urine Creatinine 19.7 mg/dL (0.1-20.0) 11/12/16 10:18 Height (in) 65.0 inches 11/12/16 10:18 Weight (lb) 181.0 lbs 11/12/16 10:18 Creatinine Clearance 5 11/12/16 10:18 Urine Sodium 36 mEq/L 09/16/16 19:19 Urine Total Protein 16 mg/dL (5-11.8) H 09/16/16 19:19 Fluid Type Pleural 01/13/17 12:10 Fluid Color Yellow 01/13/17 12:10 Fluid Appearance Hazy 01/13/17 12:10 Fluid WBC 182 /mm3 01/13/17 12:10 Fluid RBC 41 /mm3 01/13/17 12:10 Fluid Seg Neutrophils 85.0 % 01/13/17 12:10 Fluid Lymphocytes 8.0 % 01/13/17 12:10 Fluid Reactive Lymphs 0 % 01/13/17 12:10 Fluid Monocytes 6.0 % 01/13/17 12:10 Fluid Eosinophils 1.0 % 01/13/17 12:10 Fluid Basophils 0 % 01/13/17 12:10 Fluid Total Protein 3.0 (15.0-45.0) L 01/13/17 12:10 Fluid LDH 1322 01/13/17 12:10 Fluid Comment Diff performed 01/13/17 12:10 Vancomycin Trough 2.3 ug/mL (5.0-20.0) L 09/21/16 13:00 Random Vancomycin 26.0 ug/mL (0-40.0) 03/13/17 05:39 Urine Opiates Screen Presumptive negative 09/03/16 15:11 Urine Methadone Screen Presumptive positive 09/03/16 15:11 Ur Barbiturates Screen Presumptive positive 09/03/16 15:11 Ur Phencyclidine Scrn Presumptive negative 09/03/16 15:11 Ur Amphetamines Screen Presumptive negative 09/03/16 15:11 U Benzodiazepines Scrn Presumptive negative 09/03/16 15:11 Urine Cocaine Screen Presumptive negative 09/03/16 15:11 U Marijuana (THC) Screen Presumptive positive 09/03/16 15:11 Drugs of Abuse Note Disclamer 09/03/16 15:11 Rheumatoid Factor 24 IU/ml (0-13) H 09/08/16 11:48 SAHIL Screen Negative (Negative) 09/07/16 09:20 Proteinase 3 (PR3) Ab <1.0 AI (<1.0) 09/07/16 09:20 Myeloperoxidase Ab <1.0 AI (<1.0) 09/07/16 09:20 Sjogren's Antibody <1.0 AI (<1.0) 09/08/16 15:35 Scl-70 Scleroderma Ab <1.0 AI (<1.0) 09/08/16 15:35 Centromere B Antibody <1.0 AI (<1.0) 09/08/16 12:02 Heparin-induced Plt Ab Negative (Negative) 09/29/16 13:35 UF Heparin High Dose 11 % Release 09/29/16 13:35 SUDHIR UFH Low Dose 0.1 6 % Release 09/29/16 13:35 SUDHIR UFH Low Dose 0.5 8 % Release 09/29/16 13:35 Cardiolipid IgG Ab <14 GPL (<=14) 09/12/16 09:59 Cardiolipid IgA Ab <11 APL (<=11) 09/12/16 09:59 Cardiolipid IgM Ab <12 MPL (<=12) 09/12/16 09:59 Complement C3 148 mg/dL (90-180) 09/07/16 09:20 Complement C4 58 mg/dL (16-47) H 09/07/16 09:20 RPR Nonreactive (Nonreactive) 09/08/16 11:48 Hepatitis A IgM Ab Non-reactive (NonReactive) 09/24/16 14:40 Hep Bs Antigen Non-reactive (Negative) 09/24/16 14:40 Hep B Core IgM Ab Non-reactive (NonReactive) 09/24/16 14:40 Hepatitis C Antibody Non-reactive (NonReactive) 09/24/16 14:40 HIV 1&2 Antibody Rapid Non react (Non React) 09/08/16 11:48 HIV P24 Antigen Non react (Non React) 09/08/16 11:48 Miscellaneous Test Flexitest 1 H 01/09/17 18:45 Blood Type A POSITIVE 03/20/17 16:00 Antibody Screen Negative 03/20/17 16:00 DELORIS Antibody Screen Negative 11/24/16 11:20 Crossmatch See Detail 03/20/17 16:00
[2017-03-24] MEDS ORDERED: NACL 0.9% 1000 ML 2,000 ML ONE (10:13)
--- NOTE | 2017-03-24 12:22 | Progress Note ---
Assessment and Plan Patient is 46-year-old woman with a history of hypertension, diabetes mellitus, asthma, hyperlipidemia, chronic kidney disease and anxiety, who was brought in by family because she couldn't get her words out, her face was also twisted, she was admitted for acute CVA and accelerated hypertension, she had a hx of poor adherence with her medications, and uncontrolled hypertension. Patient's SBP on admission was noted be greater than 260. TPA was started but this it was discontinued after 5 minutes because her blood pressure became uncontrolled. The TPA was not initiated again because the patient was outside the TPA window. Patient has had a prolonged hospital stay complicated with recurrent severe sepsis. Patient with most recent event also status post cardiac arrest on 11/21/16 , with CPR and ROSC. Acute on chronic Hypoxemic Respiratory Failure Sepsis -recurrent Intrabdominal abscess s/p peritoneal drain per IR s/p tracheostomy Hypertension Atrial Fibrillation with RVR Acute encephalopathy s/p CVA Oropharyngeal dysphagia Enterococcal bacteremia Sacral Decubitus Ulcer- unstageable s/p debridement Anemia Obesity JUANITA now on hemodialysis prn Enteric Fistula - VAP bundle addressed - continue NGT to LIS - continue wound care/wound vac per WCT - Vasopressor if MAP falls < 65mmHg - keep on with daily PSV trials and / or T-piece as tolerated - continue TPN administration (continue TPN; NPO except for meds) - continue airway clearance and secretion management - continue to wean FiO2 for sats > 94% - continue to monitor hemodynamics closely - continue HD/UF per nephrology - continue to follow electrolytes and correct as necessary - continue GI & VTE prophylaxis Transfuse 1 unit PRBC as needed to keep HgH>7g/dL .....she remains critically ill on life sustaining interventions including MVS and at risk for further deterioration including ...detention prognosis remains poor ...DNR in the event of cardiac arrest - Patient Problems (1) Acute respiratory failure with hypoxia Current Visit: Yes Status: Acute (2) Acute blood loss anemia Current Visit: Yes Status: Resolved (3) Acute CVA (cerebrovascular accident) Current Visit: Yes Status: Acute (4) Chronic renal insufficiency Current Visit: Yes Status: Acute (5) Uncontrolled hypertension Current Visit: Yes Status: Acute (6) Leukocytosis (leucocytosis) Current Visit: Yes Status: Acute Qualifiers: Leukocytosis type: leukemoid reaction Qualified Code(s): D72.823 - Leukemoid reaction (7) Dislodged gastrostomy tube Current Visit: Yes Status: Acute (8) Fungemia Current Visit: Yes Status: Resolved (9) Cardiopulmonary arrest with successful resuscitation Current Visit: Yes Status: Acute Subjective Date of service: 03/24/17 Principal diagnosis: Acute resp failure on MVS; S/P Acute CVA; Acute Encephalopathy; JUANITA Interval history: Patient is seen today for: Acute resp failure on MVS; S/P Acute CVA; Acute Encephalopathy; JUANITA Seen and examined at bedside; 24hour events reviewed; nursing and respiratory care staff consulted; no adverse overnight events reported to me; she remains chronically critically ill. No fevers Discussed during interdisciplinary ICU team rounds Objective - Exam Narrative Exam: Gen. appearance: Patient lying in bed, no apparent distress, HEENT: Normocephalic, atraumatic, pupils equally round and reactive to light, extraocular movement intact, and no sclericterus,. No JVD or thyromegaly or nodule,neck supple, no carotid bruit ,mucous membranes moist, unable to examine oral cavity Heart: S1, S2, regular rate and rhythm Lungs: Clear to auscultation bilaterally, breathing comfortable Abdomen: Positive bowel sounds, nontender, nondistended, no organomegaly -Intrabdominal drain, 2 ostomy drains Extremity: No edema, cyanosis, clubbing Skin: No rash, nodules, warm, dry Neuro: Awake, alert, not obeying commands Vital Signs - 12hr 03/24/17 03/24/17 03/24/17 00:30 00:45 01:00 Temperature Pulse Rate 106 H 109 H 105 H Pulse Rate [ Anterior Bilateral Throughout] Respiratory 16 16 16 Rate Respiratory Rate [Anterior Bilateral Throughout] Blood Pressure 90/55 92/59 104/53 O2 Sat by Pulse 100 100 Oximetry O2 Sat by Pulse Oximetry [ Assessment] O2 Sat by Pulse Oximetry [ Throughout] 03/24/17 03/24/17 03/24/17 01:15 01:30 01:45 Temperature Pulse Rate 107 H 107 H 106 H Pulse Rate [ Anterior Bilateral Throughout] Respiratory 14 14 14 Rate Respiratory Rate [Anterior Bilateral Throughout] Blood Pressure 104/58 106/58 96/61 O2 Sat by Pulse 100 Oximetry O2 Sat by Pulse Oximetry [ Assessment] O2 Sat by Pulse Oximetry [ Throughout] 03/24/17 03/24/1718 02:00 02:15 02:30 Temperature Pulse Rate 106 H 107 H 107 H Pulse Rate [ Anterior Bilateral Throughout] Respiratory 15 14 24 Rate Respiratory Rate [Anterior Bilateral Throughout] Blood Pressure 104/53 94/56 107/53 O2 Sat by Pulse 100 Oximetry O2 Sat by Pulse Oximetry [ Assessment] O2 Sat by Pulse Oximetry [ Throughout] 03/24/17 03/24/17 03/24/17 02:45 03:00 03:15 Temperature Pulse Rate 103 H 107 H Pulse Rate [ Anterior Bilateral Throughout] Respiratory 22 18 25 H Rate Respiratory Rate [Anterior Bilateral Throughout] Blood Pressure 96/53 94/52 110/61 O2 Sat by Pulse 100 100 100 Oximetry O2 Sat by Pulse Oximetry [ Assessment] O2 Sat by Pulse Oximetry [ Throughout] 03/24/17 03/24/17 03/24/17 03:30 03:45 04:00 Temperature 99.1 F Pulse Rate 107 H 108 H 108 H Pulse Rate [ Anterior Bilateral Throughout] Respiratory 18 22 14 Rate Respiratory Rate [Anterior Bilateral Throughout] Blood Pressure 115/60 111/63 113/65 O2 Sat by Pulse 100 Oximetry O2 Sat by Pulse Oximetry [ Assessment] O2 Sat by Pulse Oximetry [ Throughout] 03/24/17 03/24/17 03/24/17 04:05 04:15 04:30 Temperature Pulse Rate 109 H 109 H 107 H Pulse Rate [ Anterior Bilateral Throughout] Respiratory 19 14 Rate Respiratory Rate [Anterior Bilateral Throughout] Blood Pressure 115/60 107/65 101/60 O2 Sat by Pulse 100 Oximetry O2 Sat by Pulse Oximetry [ Assessment] O2 Sat by Pulse Oximetry [ Throughout] 03/24/17 03/24/17 03/24/17 04:45 05:00 05:15 Temperature Pulse Rate 107 H 106 H 105 H Pulse Rate [ Anterior Bilateral Throughout] Respiratory 16 15 17 Rate Respiratory Rate [Anterior Bilateral Throughout] Blood Pressure 100/62 106/63 106/62 O2 Sat by Pulse 100 100 100 Oximetry O2 Sat by Pulse Oximetry [ Assessment] O2 Sat by Pulse Oximetry [ Throughout] 03/24/17 03/24/17 03/24/17 05:30 05:45 06:00 Temperature Pulse Rate 108 H 109 H 105 H Pulse Rate [ Anterior Bilateral Throughout] Respiratory 15 17 14 Rate Respiratory Rate [Anterior Bilateral Throughout] Blood Pressure 106/62 114/69 107/62 O2 Sat by Pulse 100 100 Oximetry O2 Sat by Pulse Oximetry [ Assessment] O2 Sat by Pulse Oximetry [ Throughout] 03/24/17 03/24/17 03/24/17 06:15 06:30 06:45 Temperature Pulse Rate 105 H 106 H 105 H Pulse Rate [ Anterior Bilateral Throughout] Respiratory 17 15 13 Rate Respiratory Rate [Anterior Bilateral Throughout] Blood Pressure 105/63 115/62 106/63 O2 Sat by Pulse 100 Oximetry O2 Sat by Pulse Oximetry [ Assessment] O2 Sat by Pulse Oximetry [ Throughout] 03/24/17 03/24/17 03/24/17 07:00 07:15 07:30 Temperature Pulse Rate 111 H 113 H 110 H Pulse Rate [ Anterior Bilateral Throughout] Respiratory 26 H 16 13 Rate Respiratory Rate [Anterior Bilateral Throughout] Blood Pressure 122/84 122/71 111/68 O2 Sat by Pulse 100 99 100 Oximetry O2 Sat by Pulse Oximetry [ Assessment] O2 Sat by Pulse Oximetry [ Throughout] 03/24/17 03/24/17 03/24/17 07:45 08:00 08:15 Temperature 98.5 F Pulse Rate 107 H 107 H 105 H Pulse Rate [ Anterior Bilateral Throughout] Respiratory 15 15 15 Rate Respiratory Rate [Anterior Bilateral Throughout] Blood Pressure 111/61 111/60 100/58 O2 Sat by Pulse 100 Oximetry O2 Sat by Pulse Oximetry [ Assessment] O2 Sat by Pulse Oximetry [ Throughout] 03/24/17 03/24/17 03/24/17 08:30 08:45 08:47 Temperature Pulse Rate 103 H 108 H 108 H Pulse Rate [ 105 H 108 H Anterior Bilateral Throughout] Respiratory 12 27 H 36 H Rate Respiratory 12 36 H Rate [Anterior Bilateral Throughout] Blood Pressure 94/58 112/68 112/68 O2 Sat by Pulse 100 99 100 Oximetry O2 Sat by Pulse 100 Oximetry [ Assessment] O2 Sat by Pulse Oximetry [ Throughout] 03/24/17 03/24/17 03/24/17 09:00 09:15 09:30 Temperature Pulse Rate 108 H 107 H 108 H Pulse Rate [ Anterior Bilateral Throughout] Respiratory 43 H 40 H 25 H Rate Respiratory Rate [Anterior Bilateral Throughout] Blood Pressure 119/76 113/68 98/55 O2 Sat by Pulse 100 100 100 Oximetry O2 Sat by Pulse Oximetry [ Assessment] O2 Sat by Pulse Oximetry [ Throughout] 03/24/17 03/24/17 03/24/17 09:45 10:00 10:16 Temperature Pulse Rate 106 H 106 H 115 H Pulse Rate [ Anterior Bilateral Throughout] Respiratory 37 H 38 H 29 H Rate Respiratory Rate [Anterior Bilateral Throughout] Blood Pressure 111/67 111/65 123/75 O2 Sat by Pulse 100 100 Oximetry O2 Sat by Pulse Oximetry [ Assessment] O2 Sat by Pulse Oximetry [ Throughout] 03/24/17 03/24/17 03/24/17 10:30 10:38 10:45 Temperature 98.5 F Pulse Rate 106 H 100 H 100 H Pulse Rate [ Anterior Bilateral Throughout] Respiratory 27 H 15 Rate Respiratory Rate [Anterior Bilateral Throughout] Blood Pressure 96/62 96/62 104/74 O2 Sat by Pulse 100 100 100 Oximetry O2 Sat by Pulse Oximetry [ Assessment] O2 Sat by Pulse 100 Oximetry [ Throughout] 03/24/17 03/24/17 03/24/17 11:00 11:16 11:33 Temperature Pulse Rate 105 H 105 H 103 H Pulse Rate [ Anterior Bilateral Throughout] Respiratory 16 Rate Respiratory Rate [Anterior Bilateral Throughout] Blood Pressure 99/68 94/66 96/62 O2 Sat by Pulse 100 Oximetry O2 Sat by Pulse Oximetry [ Assessment] O2 Sat by Pulse Oximetry [ Throughout] 03/24/17 03/24/17 03/24/17 11:44 11:45 12:03 Temperature 98.9 F Pulse Rate 103 H 102 H Pulse Rate [ Anterior Bilateral Throughout] Respiratory Rate Respiratory Rate [Anterior Bilateral Throughout] Blood Pressure 103/67 93/68 O2 Sat by Pulse Oximetry O2 Sat by Pulse Oximetry [ Assessment] O2 Sat by Pulse Oximetry [ Throughout] 03/24/17 12:18 Temperature Pulse Rate 102 H Pulse Rate [ Anterior Bilateral Throughout] Respiratory Rate Respiratory Rate [Anterior Bilateral Throughout] Blood Pressure 99/64 O2 Sat by Pulse Oximetry O2 Sat by Pulse Oximetry [ Assessment] O2 Sat by Pulse Oximetry [ Throughout] Constitutional: appears uncomfortable, other (not tracking) Eyes: non-icteric, other (tracheostomy tube in midline of neck) ENT: oropharynx moist, oropharyngeal exudate pre, other (midline tracheostomy tube) Neck: supple, no lymphadenopathy, no JVD, other (no thyromegaly) Effort: mildly labored Ascultation: Bilateral: clear, diminished breath sounds (bases R>L), rales, rhonchi (and referred upper airway sounds) Percussion: Right: dull (base), Bilateral: not dull Cardiovascular: regular rate and rhythm, other (no rubs / murmurs) Gastrointestinal: hypoactive bowel sounds, soft, non-tender, non-distended, other (RLQ & LUQ stomas with colostomy bags) Integumentary: decubitus ulcer (sacral; stage 4 s/p surgical debridement), other (no rash; no cellulitis; poor turgor) Extremities: no cyanosis, pulses normal, no ischemia or petechiae, edema (1+ bilaterally) Neurologic: pupils equal and round, unable to assess, other (encephalopathic) Psychiatric: other (unable to assess) CBC and BMP: 03/27/17 05:30 04/01/17 07:15 ABG, PT/INR, D-dimer: ABG POC ABG pH 7.518 (7.35-7.45) H 03/03/17 20:17 ABG pH 7.450 pH Units (7.350-7.450) 12/05/16 Unknown POC ABG pCO2 28.8 (35-45) L 03/03/17 20:17 ABG pCO2 29.6 mm Hg 12/05/16 Unknown POC ABG pO2 61 (80-105) L 03/03/17 20:17 ABG pO2 75.2 mm Hg (80.0-90.0) L 12/05/16 Unknown POC ABG HCO3 23.4 03/03/17 20:17 POC ABG Total CO2 24 03/03/17 20:17 POC ABG O2 Sat 94 03/03/17 20:17 ABG O2 Saturation 96.8 % (95.0-99.0) 12/05/16 Unknown PT/INR, D-dimer PT 15.4 Sec. (12.2-14.9) H 01/13/17 15:50 INR 1.16 (0.87-1.13) H 01/13/17 15:50 Abnormal lab findings: Abnormal Labs 09/03/16 09/03/16 09/03/16 00:03 00:10 00:10 WBC 13.9 H RBC 5.95 H Hgb Hct 44.0 H MCV 74 L MCH 22 L MCHC RDW 17.5 H Plt Count Lymph % (Auto) [place] % (Auto) Lymph # [place] # Baso # Seg Neutrophils % Seg Neuts % (Manual) Lymphocytes % (Manual) 54.0 H Monocytes % (Manual) Eosinophils % (Manual) Basophils % (Manual) Nucleated RBC % Seg Neutrophils # Seg Neutrophils # Man Lymphocytes # (Manual) 7.5 H Monocytes # (Manual) Eosinophils # (Manual) Basophils # (Manual) PT INR Fibrinogen dRVVT Confirm Interp Factor V Activity POC ABG pH POC ABG pCO2 POC ABG pO2 ABG pO2 ABG HCO3 ABG Base Excess ABG Hemoglobin Oxyhemoglobin Sodium Potassium 2.8 L* Chloride Carbon Dioxide 21 L BUN Creatinine 1.7 H Glucose 159 H POC Glucose 177 H Lactic Acid Calcium Ionized Calcium Phosphorus Magnesium Direct Bilirubin AST ALT Alkaline Phosphatase Lactate Dehydrogenase Troponin T C-Reactive Protein Total Protein Albumin Prealbumin Triglycerides Cholesterol LDL Cholesterol Direct HDL Cholesterol 25-OH Vitamin D Total PTH Intact Urine pH Urine WBC (Auto) Urine Creatinine Urine Total Protein Fluid Total Protein Vancomycin Trough Rheumatoid Factor Complement C4 Miscellaneous Test Crossmatch 09/03/16 09/03/16 09/03/16 12:12 15:07 16:20 WBC RBC Hgb Hct MCV MCH MCHC RDW Plt Count Lymph % (Auto) [place] % (Auto) Lymph # [place] # Baso # Seg Neutrophils % Seg Neuts % (Manual) Lymphocytes % (Manual) Monocytes % (Manual) Eosinophils % (Manual) Basophils % (Manual) Nucleated RBC % Seg Neutrophils # Seg Neutrophils # Man Lymphocytes # (Manual) Monocytes # (Manual) Eosinophils # (Manual) Basophils # (Manual) PT INR Fibrinogen dRVVT Confirm Interp Factor V Activity POC ABG pH 7.452 H POC ABG pCO2 POC ABG pO2 ABG pO2 ABG HCO3 ABG Base Excess ABG Hemoglobin Oxyhemoglobin Sodium Potassium Chloride Carbon Dioxide BUN Creatinine Glucose POC Glucose 178 H Lactic Acid Calcium Ionized Calcium Phosphorus 2.20 L Magnesium 1.60 L Direct Bilirubin AST ALT Alkaline Phosphatase Lactate Dehydrogenase Troponin T C-Reactive Protein Total Protein Albumin Prealbumin Triglycerides Cholesterol LDL Cholesterol Direct HDL Cholesterol 25-OH Vitamin D Total PTH Intact Urine pH Urine WBC (Auto) Urine Creatinine Urine Total Protein Fluid Total Protein Vancomycin Trough Rheumatoid Factor Complement C4 Miscellaneous Test Crossmatch 09/03/16 09/03/16 09/03/16 17:57 17:58 23:50 WBC RBC Hgb Hct MCV MCH MCHC RDW Plt Count Lymph % (Auto) [place] % (Auto) Lymph # [place] # Baso # Seg Neutrophils % Seg Neuts % (Manual) Lymphocytes % (Manual) Monocytes % (Manual) Eosinophils % (Manual) Basophils % (Manual) Nucleated RBC % Seg Neutrophils # Seg Neutrophils # Man Lymphocytes # (Manual) Monocytes # (Manual) Eosinophils # (Manual) Basophils # (Manual) PT INR Fibrinogen dRVVT Confirm Interp Factor V Activity POC ABG pH POC ABG pCO2 POC ABG pO2 ABG pO2 ABG HCO3 ABG Base Excess ABG Hemoglobin Oxyhemoglobin Sodium Potassium Chloride Carbon Dioxide BUN Creatinine Glucose POC Glucose 162 H 145 H Lactic Acid Calcium Ionized Calcium Phosphorus 2.30 L Magnesium Direct Bilirubin AST ALT Alkaline Phosphatase Lactate Dehydrogenase Troponin T C-Reactive Protein Total Protein Albumin Prealbumin Triglycerides Cholesterol LDL Cholesterol Direct HDL Cholesterol 25-OH Vitamin D Total PTH Intact Urine pH Urine WBC (Auto) Urine Creatinine Urine Total Protein Fluid Total Protein Vancomycin Trough Rheumatoid Factor Complement C4 Miscellaneous Test Crossmatch 09/04/16 09/04/16 09/04/16 03:31 03:31 05:42 WBC RBC Hgb 9.7 L D Hct MCV 72 L MCH 23 L MCHC RDW 17.5 H Plt Count Lymph % (Auto) 11.1 L [place] % (Auto) Lymph # [place] # Baso # Seg Neutrophils % 84.3 H Seg Neuts % (Manual) Lymphocytes % (Manual) Monocytes % (Manual) Eosinophils % (Manual) Basophils % (Manual) Nucleated RBC % Seg Neutrophils # 8.9 H Seg Neutrophils # Man Lymphocytes # (Manual) Monocytes # (Manual) Eosinophils # (Manual) Basophils # (Manual) PT INR Fibrinogen dRVVT Confirm Interp Factor V Activity POC ABG pH POC ABG pCO2 POC ABG pO2 ABG pO2 ABG HCO3 ABG Base Excess ABG Hemoglobin Oxyhemoglobin Sodium 135 L Potassium 2.9 L* Chloride 97.2 L Carbon Dioxide 19 L BUN Creatinine 1.7 H Glucose 170 H POC Glucose 152 H Lactic Acid Calcium Ionized Calcium Phosphorus Magnesium Direct Bilirubin AST ALT Alkaline Phosphatase Lactate Dehydrogenase Troponin T C-Reactive Protein Total Protein Albumin Prealbumin Triglycerides 160 H Cholesterol LDL Cholesterol Direct HDL Cholesterol 31 L 25-OH Vitamin D Total PTH Intact Urine pH Urine WBC (Auto) Urine Creatinine Urine Total Protein Fluid Total Protein Vancomycin Trough Rheumatoid Factor Complement C4 Miscellaneous Test Crossmatch 09/04/16 09/04/16 09/04/16 11:34 17:46 23:29 WBC RBC Hgb Hct MCV MCH MCHC RDW Plt Count Lymph % (Auto) [place] % (Auto) Lymph # [place] # Baso # Seg Neutrophils % Seg Neuts % (Manual) Lymphocytes % (Manual) Monocytes % (Manual) Eosinophils % (Manual) Basophils % (Manual) Nucleated RBC % Seg Neutrophils # Seg Neutrophils # Man Lymphocytes # (Manual) Monocytes # (Manual) Eosinophils # (Manual) Basophils # (Manual) PT INR Fibrinogen dRVVT Confirm Interp Factor V Activity POC ABG pH POC ABG pCO2 POC ABG pO2 ABG pO2 ABG HCO3 ABG Base Excess ABG Hemoglobin Oxyhemoglobin Sodium Potassium Chloride Carbon Dioxide BUN Creatinine Glucose POC Glucose 165 H 210 H 139 H Lactic Acid Calcium Ionized Calcium Phosphorus Magnesium Direct Bilirubin AST ALT Alkaline Phosphatase Lactate Dehydrogenase Troponin T C-Reactive Protein Total Protein Albumin Prealbumin Triglycerides Cholesterol LDL Cholesterol Direct HDL Cholesterol 25-OH Vitamin D Total PTH Intact Urine pH Urine WBC (Auto) Urine Creatinine Urine Total Protein Fluid Total Protein Vancomycin Trough Rheumatoid Factor Complement C4 Miscellaneous Test Crossmatch 09/05/16 09/05/16 09/05/16 04:05 04:05 05:38 WBC RBC Hgb Hct MCV 76 L D MCH 23 L MCHC RDW 17.8 H Plt Count Lymph % (Auto) [place] % (Auto) Lymph # [place] # Baso # Seg Neutrophils % Seg Neuts % (Manual) Lymphocytes % (Manual) Monocytes % (Manual) Eosinophils % (Manual) Basophils % (Manual) Nucleated RBC % Seg Neutrophils # Seg Neutrophils # Man Lymphocytes # (Manual) Monocytes # (Manual) Eosinophils # (Manual) Basophils # (Manual) PT INR Fibrinogen dRVVT Confirm Interp Factor V Activity POC ABG pH POC ABG pCO2 POC ABG pO2 ABG pO2 ABG HCO3 ABG Base Excess ABG Hemoglobin Oxyhemoglobin Sodium 134 L Potassium Chloride Carbon Dioxide 18 L BUN Creatinine 1.8 H Glucose 192 H POC Glucose 175 H Lactic Acid Calcium Ionized Calcium Phosphorus Magnesium Direct Bilirubin AST ALT Alkaline Phosphatase Lactate Dehydrogenase Troponin T C-Reactive Protein Total Protein Albumin Prealbumin Triglycerides Cholesterol LDL Cholesterol Direct HDL Cholesterol 25-OH Vitamin D Total PTH Intact Urine pH Urine WBC (Auto) Urine Creatinine Urine Total Protein Fluid Total Protein Vancomycin Trough Rheumatoid Factor Complement C4 Miscellaneous Test Crossmatch 09/05/16 09/05/16 09/05/16 11:38 17:48 23:22 WBC RBC Hgb Hct MCV MCH MCHC RDW Plt Count Lymph % (Auto) [place] % (Auto) Lymph # [place] # Baso # Seg Neutrophils % Seg Neuts % (Manual) Lymphocytes % (Manual) Monocytes % (Manual) Eosinophils % (Manual) Basophils % (Manual) Nucleated RBC % Seg Neutrophils # Seg Neutrophils # Man Lymphocytes # (Manual) Monocytes # (Manual) Eosinophils # (Manual) Basophils # (Manual) PT INR Fibrinogen dRVVT Confirm Interp Factor V Activity POC ABG pH POC ABG pCO2 POC ABG pO2 ABG pO2 ABG HCO3 ABG Base Excess ABG Hemoglobin Oxyhemoglobin Sodium Potassium Chloride Carbon Dioxide BUN Creatinine Glucose POC Glucose 164 H 186 H 195 H Lactic Acid Calcium Ionized Calcium Phosphorus Magnesium Direct Bilirubin AST ALT Alkaline Phosphatase Lactate Dehydrogenase Troponin T C-Reactive Protein Total Protein Albumin Prealbumin Triglycerides Cholesterol LDL Cholesterol Direct HDL Cholesterol 25-OH Vitamin D Total PTH Intact Urine pH Urine WBC (Auto) Urine Creatinine Urine Total Protein Fluid Total Protein Vancomycin Trough Rheumatoid Factor Complement C4 Miscellaneous Test Crossmatch 09/06/16 09/06/16 09/06/16 04:12 05:59 07:32 WBC RBC Hgb Hct MCV MCH MCHC RDW Plt Count Lymph % (Auto) [place] % (Auto) Lymph # [place] # Baso # Seg Neutrophils % Seg Neuts % (Manual) Lymphocytes % (Manual) Monocytes % (Manual) Eosinophils % (Manual) Basophils % (Manual) Nucleated RBC % Seg Neutrophils # Seg Neutrophils # Man Lymphocytes # (Manual) Monocytes # (Manual) Eosinophils # (Manual) Basophils # (Manual) PT INR Fibrinogen dRVVT Confirm Interp Factor V Activity POC ABG pH 7.514 H POC ABG pCO2 29.1 L POC ABG pO2 72 L ABG pO2 ABG HCO3 ABG Base Excess ABG Hemoglobin Oxyhemoglobin Sodium 133 L Potassium 3.4 L Chloride 94.9 L Carbon Dioxide 19 L BUN 30 H Creatinine 2.1 H Glucose 139 H POC Glucose 146 H Lactic Acid Calcium Ionized Calcium Phosphorus Magnesium Direct Bilirubin AST ALT Alkaline Phosphatase Lactate Dehydrogenase Troponin T C-Reactive Protein Total Protein Albumin Prealbumin Triglycerides Cholesterol LDL Cholesterol Direct HDL Cholesterol 25-OH Vitamin D Total PTH Intact Urine pH Urine WBC (Auto) Urine Creatinine Urine Total Protein Fluid Total Protein Vancomycin Trough Rheumatoid Factor Complement C4 Miscellaneous Test Crossmatch 09/06/16 09/06/16 09/06/16 11:57 17:58 19:02 WBC RBC Hgb Hct MCV MCH MCHC RDW Plt Count Lymph % (Auto) [place] % (Auto) Lymph # [place] # Baso # Seg Neutrophils % Seg Neuts % (Manual) Lymphocytes % (Manual) Monocytes % (Manual) Eosinophils % (Manual) Basophils % (Manual) Nucleated RBC % Seg Neutrophils # Seg Neutrophils # Man Lymphocytes # (Manual) Monocytes # (Manual) Eosinophils # (Manual) Basophils # (Manual) PT INR Fibrinogen dRVVT Confirm Interp Factor V Activity POC ABG pH 7.465 H POC ABG pCO2 32.0 L POC ABG pO2 ABG pO2 ABG HCO3 ABG Base Excess ABG Hemoglobin Oxyhemoglobin Sodium Potassium Chloride Carbon Dioxide BUN Creatinine Glucose POC Glucose 165 H 160 H Lactic Acid Calcium Ionized Calcium Phosphorus Magnesium Direct Bilirubin AST ALT Alkaline Phosphatase Lactate Dehydrogenase Troponin T C-Reactive Protein Total Protein Albumin Prealbumin Triglycerides Cholesterol LDL Cholesterol Direct HDL Cholesterol 25-OH Vitamin D Total PTH Intact Urine pH Urine WBC (Auto) Urine Creatinine Urine Total Protein Fluid Total Protein Vancomycin Trough Rheumatoid Factor Complement C4 Miscellaneous Test Crossmatch 09/06/16 09/07/16 09/07/16 23:45 02:47 02:47 WBC RBC Hgb Hct MCV MCH MCHC RDW Plt Count Lymph % (Auto) [place] % (Auto) Lymph # [place] # Baso # Seg Neutrophils % Seg Neuts % (Manual) Lymphocytes % (Manual) Monocytes % (Manual) Eosinophils % (Manual) Basophils % (Manual) Nucleated RBC % Seg Neutrophils # Seg Neutrophils # Man Lymphocytes # (Manual) Monocytes # (Manual) Eosinophils # (Manual) Basophils # (Manual) PT INR Fibrinogen dRVVT Confirm Interp Factor V Activity POC ABG pH POC ABG pCO2 POC ABG pO2 ABG pO2 ABG HCO3 ABG Base Excess ABG Hemoglobin Oxyhemoglobin Sodium Potassium Chloride Carbon Dioxide BUN Creatinine Glucose POC Glucose 204 H Lactic Acid Calcium Ionized Calcium Phosphorus Magnesium Direct Bilirubin AST ALT Alkaline Phosphatase Lactate Dehydrogenase Troponin T C-Reactive Protein Total Protein Albumin Prealbumin Triglycerides Cholesterol LDL Cholesterol Direct HDL Cholesterol 25-OH Vitamin D Total PTH Intact Urine pH Urine WBC (Auto) 68.0 H Urine Creatinine 106.1 H Urine Total Protein Fluid Total Protein Vancomycin Trough Rheumatoid Factor Complement C4 Miscellaneous Test Crossmatch 09/07/16 09/07/16 09/07/16 04:50 06:19 06:39 WBC RBC Hgb Hct MCV MCH MCHC RDW Plt Count Lymph % (Auto) [place] % (Auto) Lymph # [place] # Baso # Seg Neutrophils % Seg Neuts % (Manual) Lymphocytes % (Manual) Monocytes % (Manual) Eosinophils % (Manual) Basophils % (Manual) Nucleated RBC % Seg Neutrophils # Seg Neutrophils # Man Lymphocytes # (Manual) Monocytes # (Manual) Eosinophils # (Manual) Basophils # (Manual) PT INR Fibrinogen dRVVT Confirm Interp Factor V Activity POC ABG pH 7.457 H POC ABG pCO2 32.1 L POC ABG pO2 76 L ABG pO2 ABG HCO3 ABG Base Excess ABG Hemoglobin Oxyhemoglobin Sodium 132 L Potassium Chloride 94.7 L Carbon Dioxide BUN 53 H Creatinine 2.9 H Glucose 151 H POC Glucose 149 H Lactic Acid Calcium Ionized Calcium Phosphorus Magnesium Direct Bilirubin AST ALT Alkaline Phosphatase Lactate Dehydrogenase Troponin T C-Reactive Protein Total Protein Albumin Prealbumin Triglycerides Cholesterol LDL Cholesterol Direct HDL Cholesterol 25-OH Vitamin D Total PTH Intact Urine pH Urine WBC (Auto) Urine Creatinine Urine Total Protein Fluid Total Protein Vancomycin Trough Rheumatoid Factor Complement C4 Miscellaneous Test Crossmatch 09/07/16 09/07/16 09/07/16 09:20 11:43 11:43 WBC 19.4 H RBC Hgb 8.3 L Hct 26.4 L D MCV 72 L D MCH 22 L MCHC RDW 17.9 H Plt Count Lymph % (Auto) 8.5 L [place] % (Auto) Lymph # [place] # 1.0 H Baso # Seg Neutrophils % 85.8 H Seg Neuts % (Manual) Lymphocytes % (Manual) Monocytes % (Manual) Eosinophils % (Manual) Basophils % (Manual) Nucleated RBC % Seg Neutrophils # 16.6 H Seg Neutrophils # Man Lymphocytes # (Manual) Monocytes # (Manual) Eosinophils # (Manual) Basophils # (Manual) PT INR Fibrinogen dRVVT Confirm Interp Factor V Activity POC ABG pH POC ABG pCO2 POC ABG pO2 ABG pO2 ABG HCO3 ABG Base Excess ABG Hemoglobin Oxyhemoglobin Sodium 134 L Potassium Chloride 97.2 L Carbon Dioxide 20 L BUN 58 H Creatinine 2.9 H Glucose 147 H POC Glucose Lactic Acid Calcium Ionized Calcium Phosphorus 2.40 L Magnesium 2.40 H Direct Bilirubin AST ALT Alkaline Phosphatase Lactate Dehydrogenase Troponin T C-Reactive Protein Total Protein 5.8 L Albumin 2.2 L Prealbumin Triglycerides Cholesterol LDL Cholesterol Direct HDL Cholesterol 25-OH Vitamin D Total PTH Intact Urine pH Urine WBC (Auto) Urine Creatinine Urine Total Protein Fluid Total Protein Vancomycin Trough Rheumatoid Factor Complement C4 58 H Miscellaneous Test Crossmatch 09/07/16 09/07/16 09/07/16 11:50 16:00 17:31 WBC RBC Hgb Hct MCV MCH MCHC RDW Plt Count Lymph % (Auto) [place] % (Auto) Lymph # [place] # Baso # Seg Neutrophils % Seg Neuts % (Manual) Lymphocytes % (Manual) Monocytes % (Manual) Eosinophils % (Manual) Basophils % (Manual) Nucleated RBC % Seg Neutrophils # Seg Neutrophils # Man Lymphocytes # (Manual) Monocytes # (Manual) Eosinophils # (Manual) Basophils # (Manual) PT INR Fibrinogen dRVVT Confirm Interp Factor V Activity POC ABG pH POC ABG pCO2 POC ABG pO2 158 H ABG pO2 ABG HCO3 ABG Base Excess ABG Hemoglobin Oxyhemoglobin Sodium Potassium Chloride Carbon Dioxide BUN Creatinine Glucose POC Glucose 175 H Lactic Acid Calcium Ionized Calcium Phosphorus Magnesium Direct Bilirubin AST ALT Alkaline Phosphatase Lactate Dehydrogenase Troponin T C-Reactive Protein Total Protein Albumin Prealbumin Triglycerides Cholesterol LDL Cholesterol Direct HDL Cholesterol 25-OH Vitamin D Total PTH Intact Urine pH Urine WBC (Auto) Urine Creatinine 66.3 H Urine Total Protein Fluid Total Protein Vancomycin Trough Rheumatoid Factor Complement C4 Miscellaneous Test Crossmatch 09/07/16 09/08/16 09/08/16 23:50 05:46 06:18 WBC 17.8 H RBC 3.58 L Hgb 8.1 L Hct 25.5 L MCV 71 L MCH 23 L MCHC RDW 18.4 H Plt Count Lymph % (Auto) [place] % (Auto) Lymph # [place] # Baso # Seg Neutrophils % Seg Neuts % (Manual) 92.0 H Lymphocytes % (Manual) 6.0 L Monocytes % (Manual) Eosinophils % (Manual) Basophils % (Manual) Nucleated RBC % Seg Neutrophils # Seg Neutrophils # Man 16.4 H Lymphocytes # (Manual) 1.1 L Monocytes # (Manual) Eosinophils # (Manual) Basophils # (Manual) PT INR Fibrinogen dRVVT Confirm Interp Factor V Activity POC ABG pH POC ABG pCO2 34.3 L POC ABG pO2 71 L ABG pO2 ABG HCO3 ABG Base Excess ABG Hemoglobin Oxyhemoglobin Sodium Potassium Chloride Carbon Dioxide BUN Creatinine Glucose POC Glucose 216 H Lactic Acid Calcium Ionized Calcium Phosphorus Magnesium Direct Bilirubin AST ALT Alkaline Phosphatase Lactate Dehydrogenase Troponin T C-Reactive Protein Total Protein Albumin Prealbumin Triglycerides Cholesterol LDL Cholesterol Direct HDL Cholesterol 25-OH Vitamin D Total PTH Intact Urine pH Urine WBC (Auto) Urine Creatinine Urine Total Protein Fluid Total Protein Vancomycin Trough Rheumatoid Factor Complement C4 Miscellaneous Test Crossmatch 09/08/16 09/08/16 09/08/16 06:18 06:51 10:55 WBC RBC Hgb Hct MCV MCH MCHC RDW Plt Count Lymph % (Auto) [place] % (Auto) Lymph # [place] # Baso # Seg Neutrophils % Seg Neuts % (Manual) Lymphocytes % (Manual) Monocytes % (Manual) Eosinophils % (Manual) Basophils % (Manual) Nucleated RBC % Seg Neutrophils # Seg Neutrophils # Man Lymphocytes # (Manual) Monocytes # (Manual) Eosinophils # (Manual) Basophils # (Manual) PT INR Fibrinogen dRVVT Confirm Interp Factor V Activity POC ABG pH POC ABG pCO2 POC ABG pO2 ABG pO2 ABG HCO3 ABG Base Excess ABG Hemoglobin Oxyhemoglobin Sodium 133 L Potassium Chloride 96.9 L Carbon Dioxide 20 L BUN 63 H Creatinine 2.7 H Glucose 195 H POC Glucose 204 H 169 H Lactic Acid Calcium Ionized Calcium Phosphorus Magnesium Direct Bilirubin AST ALT Alkaline Phosphatase Lactate Dehydrogenase Troponin T C-Reactive Protein Total Protein Albumin Prealbumin Triglycerides Cholesterol LDL Cholesterol Direct HDL Cholesterol 25-OH Vitamin D Total PTH Intact Urine pH Urine WBC (Auto) Urine Creatinine Urine Total Protein Fluid Total Protein Vancomycin Trough Rheumatoid Factor Complement C4 Miscellaneous Test Crossmatch 09/08/16 09/08/16 09/08/16 11:48 11:48 11:48 WBC RBC Hgb Hct MCV MCH MCHC RDW Plt Count Lymph % (Auto) [place] % (Auto) Lymph # [place] # Baso # Seg Neutrophils % Seg Neuts % (Manual) Lymphocytes % (Manual) Monocytes % (Manual) Eosinophils % (Manual) Basophils % (Manual) Nucleated RBC % Seg Neutrophils # Seg Neutrophils # Man Lymphocytes # (Manual) Monocytes # (Manual) Eosinophils # (Manual) Basophils # (Manual) PT INR Fibrinogen 750 H dRVVT Confirm Interp Factor V Activity POC ABG pH POC ABG pCO2 POC ABG pO2 ABG pO2 ABG HCO3 ABG Base Excess ABG Hemoglobin Oxyhemoglobin Sodium Potassium Chloride Carbon Dioxide BUN Creatinine Glucose POC Glucose Lactic Acid Calcium Ionized Calcium Phosphorus Magnesium Direct Bilirubin AST ALT Alkaline Phosphatase Lactate Dehydrogenase Troponin T C-Reactive Protein 15.70 H Total Protein Albumin Prealbumin Triglycerides Cholesterol LDL Cholesterol Direct HDL Cholesterol 25-OH Vitamin D Total PTH Intact Urine pH Urine WBC (Auto) Urine Creatinine Urine Total Protein Fluid Total Protein Vancomycin Trough Rheumatoid Factor 24 H Complement C4 Miscellaneous Test Crossmatch 09/08/16 09/08/16 09/09/16 15:35 18:25 00:24 WBC RBC Hgb Hct MCV MCH MCHC RDW Plt Count Lymph % (Auto) [place] % (Auto) Lymph # [place] # Baso # Seg Neutrophils % Seg Neuts % (Manual) Lymphocytes % (Manual) Monocytes % (Manual) Eosinophils % (Manual) Basophils % (Manual) Nucleated RBC % Seg Neutrophils # Seg Neutrophils # Man Lymphocytes # (Manual) Monocytes # (Manual) Eosinophils # (Manual) Basophils # (Manual) PT INR Fibrinogen dRVVT Confirm Interp Factor V Activity 182 H POC ABG pH POC ABG pCO2 POC ABG pO2 ABG pO2 ABG HCO3 ABG Base Excess ABG Hemoglobin Oxyhemoglobin Sodium Potassium Chloride Carbon Dioxide BUN Creatinine Glucose POC Glucose 184 H 216 H Lactic Acid Calcium Ionized Calcium Phosphorus Magnesium Direct Bilirubin AST ALT Alkaline Phosphatase Lactate Dehydrogenase Troponin T C-Reactive Protein Total Protein Albumin Prealbumin Triglycerides Cholesterol LDL Cholesterol Direct HDL Cholesterol 25-OH Vitamin D Total PTH Intact Urine pH Urine WBC (Auto) Urine Creatinine Urine Total Protein Fluid Total Protein Vancomycin Trough Rheumatoid Factor Complement C4 Miscellaneous Test Crossmatch 09/09/16 09/09/16 09/09/16 03:00 03:00 04:04 WBC 27.9 H RBC Hgb 8.7 L Hct 28.1 L MCV 72 L MCH 22 L MCHC RDW 18.4 H Plt Count 485 H Lymph % (Auto) [place] % (Auto) Lymph # [place] # Baso # Seg Neutrophils % Seg Neuts % (Manual) 77.0 H Lymphocytes % (Manual) 9.0 L Monocytes % (Manual) Eosinophils % (Manual) Basophils % (Manual) Nucleated RBC % Seg Neutrophils # Seg Neutrophils # Man 21.5 H Lymphocytes # (Manual) Monocytes # (Manual) 2.0 H Eosinophils # (Manual) Basophils # (Manual) PT INR Fibrinogen dRVVT Confirm Interp Factor V Activity POC ABG pH POC ABG pCO2 POC ABG pO2 121 H ABG pO2 ABG HCO3 ABG Base Excess ABG Hemoglobin Oxyhemoglobin Sodium 135 L Potassium Chloride 96.3 L Carbon Dioxide 21 L BUN 83 H Creatinine 3.0 H Glucose 135 H POC Glucose Lactic Acid Calcium Ionized Calcium Phosphorus Magnesium Direct Bilirubin AST ALT Alkaline Phosphatase Lactate Dehydrogenase Troponin T C-Reactive Protein Total Protein Albumin Prealbumin Triglycerides Cholesterol LDL Cholesterol Direct HDL Cholesterol 25-OH Vitamin D Total PTH Intact Urine pH Urine WBC (Auto) Urine Creatinine Urine Total Protein Fluid Total Protein Vancomycin Trough Rheumatoid Factor Complement C4 Miscellaneous Test Crossmatch 09/09/16 09/09/16 09/09/16 05:41 11:55 14:13 WBC RBC Hgb Hct MCV MCH MCHC RDW Plt Count Lymph % (Auto) [place] % (Auto) Lymph # [place] # Baso # Seg Neutrophils % Seg Neuts % (Manual) Lymphocytes % (Manual) Monocytes % (Manual) Eosinophils % (Manual) Basophils % (Manual) Nucleated RBC % Seg Neutrophils # Seg Neutrophils # Man Lymphocytes # (Manual) Monocytes # (Manual) Eosinophils # (Manual) Basophils # (Manual) PT INR Fibrinogen dRVVT Confirm Interp Factor V Activity POC ABG pH POC ABG pCO2 POC ABG pO2 ABG pO2 ABG HCO3 ABG Base Excess ABG Hemoglobin Oxyhemoglobin Sodium Potassium Chloride Carbon Dioxide BUN Creatinine Glucose POC Glucose 155 H 186 H Lactic Acid Calcium Ionized Calcium Phosphorus Magnesium Direct Bilirubin AST ALT Alkaline Phosphatase Lactate Dehydrogenase Troponin T C-Reactive Protein Total Protein Albumin Prealbumin Triglycerides Cholesterol LDL Cholesterol Direct HDL Cholesterol 25-OH Vitamin D Total PTH Intact Urine pH Urine WBC (Auto) 25.0 H Urine Creatinine Urine Total Protein Fluid Total Protein Vancomycin Trough Rheumatoid Factor Complement C4 Miscellaneous Test Crossmatch 09/09/16 09/09/16 09/10/16 17:33 23:13 05:09 WBC RBC Hgb Hct MCV MCH MCHC RDW Plt Count Lymph % (Auto) [place] % (Auto) Lymph # [place] # Baso # Seg Neutrophils % Seg Neuts % (Manual) Lymphocytes % (Manual) Monocytes % (Manual) Eosinophils % (Manual) Basophils % (Manual) Nucleated RBC % Seg Neutrophils # Seg Neutrophils # Man Lymphocytes # (Manual) Monocytes # (Manual) Eosinophils # (Manual) Basophils # (Manual) PT INR Fibrinogen dRVVT Confirm Interp Factor V Activity POC ABG pH POC ABG pCO2 POC ABG pO2 74 L ABG pO2 ABG HCO3 ABG Base Excess ABG Hemoglobin Oxyhemoglobin Sodium Potassium Chloride Carbon Dioxide BUN Creatinine Glucose POC Glucose 211 H 215 H Lactic Acid Calcium Ionized Calcium Phosphorus Magnesium Direct Bilirubin AST ALT Alkaline Phosphatase Lactate Dehydrogenase Troponin T C-Reactive Protein Total Protein Albumin Prealbumin Triglycerides Cholesterol LDL Cholesterol Direct HDL Cholesterol 25-OH Vitamin D Total PTH Intact Urine pH Urine WBC (Auto) Urine Creatinine Urine Total Protein Fluid Total Protein Vancomycin Trough Rheumatoid Factor Complement C4 Miscellaneous Test Crossmatch 09/10/16 09/10/16 09/10/16 05:17 05:17 11:31 WBC 15.8 H RBC 3.25 L Hgb 7.3 L Hct 22.9 L MCV 71 L MCH 23 L MCHC RDW 18.4 H Plt Count Lymph % (Auto) [place] % (Auto) Lymph # [place] # Baso # Seg Neutrophils % Seg Neuts % (Manual) 91.0 H Lymphocytes % (Manual) 4.0 L Monocytes % (Manual) Eosinophils % (Manual) Basophils % (Manual) Nucleated RBC % Seg Neutrophils # Seg Neutrophils # Man 14.4 H Lymphocytes # (Manual) 0.6 L Monocytes # (Manual) Eosinophils # (Manual) Basophils # (Manual) PT INR Fibrinogen dRVVT Confirm Interp Factor V Activity POC ABG pH POC ABG pCO2 POC ABG pO2 ABG pO2 ABG HCO3 ABG Base Excess ABG Hemoglobin Oxyhemoglobin Sodium Potassium Chloride Carbon Dioxide 21 L BUN 93 H Creatinine 2.9 H Glucose 146 H POC Glucose 188 H Lactic Acid Calcium 8.1 L Ionized Calcium Phosphorus Magnesium Direct Bilirubin AST ALT Alkaline Phosphatase Lactate Dehydrogenase Troponin T C-Reactive Protein Total Protein Albumin Prealbumin Triglycerides Cholesterol LDL Cholesterol Direct HDL Cholesterol 25-OH Vitamin D Total PTH Intact Urine pH Urine WBC (Auto) Urine Creatinine Urine Total Protein Fluid Total Protein Vancomycin Trough Rheumatoid Factor Complement C4 Miscellaneous Test Crossmatch 09/10/16 09/10/16 09/10/16 13:17 17:20 23:32 WBC RBC Hgb Hct MCV MCH MCHC RDW Plt Count Lymph % (Auto) [place] % (Auto) Lymph # [place] # Baso # Seg Neutrophils % Seg Neuts % (Manual) Lymphocytes % (Manual) Monocytes % (Manual) Eosinophils % (Manual) Basophils % (Manual) Nucleated RBC % Seg Neutrophils # Seg Neutrophils # Man Lymphocytes # (Manual) Monocytes # (Manual) Eosinophils # (Manual) Basophils # (Manual) PT INR Fibrinogen dRVVT Confirm Interp Factor V Activity POC ABG pH POC ABG pCO2 POC ABG pO2 ABG pO2 ABG HCO3 ABG Base Excess ABG Hemoglobin Oxyhemoglobin Sodium Potassium Chloride Carbon Dioxide BUN Creatinine Glucose POC Glucose 199 H 186 H Lactic Acid Calcium Ionized Calcium Phosphorus Magnesium Direct Bilirubin AST ALT Alkaline Phosphatase Lactate Dehydrogenase Troponin T C-Reactive Protein Total Protein Albumin Prealbumin Triglycerides Cholesterol LDL Cholesterol Direct HDL Cholesterol 25-OH Vitamin D Total PTH Intact Urine pH Urine WBC (Auto) Urine Creatinine Urine Total Protein Fluid Total Protein Vancomycin Trough Rheumatoid Factor Complement C4 Miscellaneous Test Crossmatch See Detail 09/11/16 09/11/16 09/11/16 05:10 05:10 05:17 WBC 28.4 H RBC Hgb 9.2 L Hct 29.3 L D MCV 73 L MCH 23 L MCHC RDW 18.9 H Plt Count 452 H Lymph % (Auto) [place] % (Auto) Lymph # [place] # Baso # Seg Neutrophils % Seg Neuts % (Manual) 89.5 H Lymphocytes % (Manual) 2.0 L Monocytes % (Manual) Eosinophils % (Manual) Basophils % (Manual) Nucleated RBC % Seg Neutrophils # Seg Neutrophils # Man 25.4 H Lymphocytes # (Manual) 0.6 L Monocytes # (Manual) 1.3 H Eosinophils # (Manual) Basophils # (Manual) PT INR Fibrinogen dRVVT Confirm Interp Factor V Activity POC ABG pH POC ABG pCO2 POC ABG pO2 ABG pO2 ABG HCO3 ABG Base Excess ABG Hemoglobin Oxyhemoglobin Sodium 136 L Potassium Chloride Carbon Dioxide 18 L BUN 107 H Creatinine 2.6 H Glucose 187 H POC Glucose 230 H Lactic Acid Calcium 8.3 L Ionized Calcium Phosphorus Magnesium Direct Bilirubin AST ALT Alkaline Phosphatase Lactate Dehydrogenase Troponin T C-Reactive Protein Total Protein Albumin Prealbumin Triglycerides Cholesterol LDL Cholesterol Direct HDL Cholesterol 25-OH Vitamin D Total PTH Intact Urine pH Urine WBC (Auto) Urine Creatinine Urine Total Protein Fluid Total Protein Vancomycin Trough Rheumatoid Factor Complement C4 Miscellaneous Test Crossmatch 09/11/16 09/11/16 09/11/16 05:55 12:02 17:32 WBC RBC Hgb Hct MCV MCH MCHC RDW Plt Count Lymph % (Auto) [place] % (Auto) Lymph # [place] # Baso # Seg Neutrophils % Seg Neuts % (Manual) Lymphocytes % (Manual) Monocytes % (Manual) Eosinophils % (Manual) Basophils % (Manual) Nucleated RBC % Seg Neutrophils # Seg Neutrophils # Man Lymphocytes # (Manual) Monocytes # (Manual) Eosinophils # (Manual) Basophils # (Manual) PT INR Fibrinogen dRVVT Confirm Interp Factor V Activity POC ABG pH POC ABG pCO2 33.8 L POC ABG pO2 ABG pO2 ABG HCO3 ABG Base Excess ABG Hemoglobin Oxyhemoglobin Sodium Potassium Chloride Carbon Dioxide BUN Creatinine Glucose POC Glucose 191 H 239 H Lactic Acid Calcium Ionized Calcium Phosphorus Magnesium Direct Bilirubin AST ALT Alkaline Phosphatase Lactate Dehydrogenase Troponin T C-Reactive Protein Total Protein Albumin Prealbumin Triglycerides Cholesterol LDL Cholesterol Direct HDL Cholesterol 25-OH Vitamin D Total PTH Intact Urine pH Urine WBC (Auto) Urine Creatinine Urine Total Protein Fluid Total Protein Vancomycin Trough Rheumatoid Factor Complement C4 Miscellaneous Test Crossmatch 09/11/16 09/12/16 09/12/16 23:52 05:09 05:32 WBC RBC Hgb Hct MCV MCH MCHC RDW Plt Count Lymph % (Auto) [place] % (Auto) Lymph # [place] # Baso # Seg Neutrophils % Seg Neuts % (Manual) Lymphocytes % (Manual) Monocytes % (Manual) Eosinophils % (Manual) Basophils % (Manual) Nucleated RBC % Seg Neutrophils # Seg Neutrophils # Man Lymphocytes # (Manual) Monocytes # (Manual) Eosinophils # (Manual) Basophils # (Manual) PT INR Fibrinogen dRVVT Confirm Interp Factor V Activity POC ABG pH POC ABG pCO2 34.6 L POC ABG pO2 ABG pO2 ABG HCO3 ABG Base Excess ABG Hemoglobin Oxyhemoglobin Sodium Potassium Chloride Carbon Dioxide BUN Creatinine Glucose POC Glucose 265 H 184 H Lactic Acid Calcium Ionized Calcium Phosphorus Magnesium Direct Bilirubin AST ALT Alkaline Phosphatase Lactate Dehydrogenase Troponin T C-Reactive Protein Total Protein Albumin Prealbumin Triglycerides Cholesterol LDL Cholesterol Direct HDL Cholesterol 25-OH Vitamin D Total PTH Intact Urine pH Urine WBC (Auto) Urine Creatinine Urine Total Protein Fluid Total Protein Vancomycin Trough Rheumatoid Factor Complement C4 Miscellaneous Test Crossmatch 09/12/16 09/12/16 09/12/16 06:45 06:45 07:22 WBC 31.7 H RBC 3.54 L Hgb 8.3 L Hct 25.9 L MCV 73 L MCH 23 L MCHC RDW 18.9 H Plt Count Lymph % (Auto) [place] % (Auto) Lymph # [place] # Baso # Seg Neutrophils % Seg Neuts % (Manual) 88.5 H Lymphocytes % (Manual) 4.5 L Monocytes % (Manual) Eosinophils % (Manual) Basophils % (Manual) Nucleated RBC % Seg Neutrophils # Seg Neutrophils # Man 28.1 H Lymphocytes # (Manual) Monocytes # (Manual) 1.0 H Eosinophils # (Manual) Basophils # (Manual) PT INR Fibrinogen dRVVT Confirm Interp Factor V Activity POC ABG pH POC ABG pCO2 POC ABG pO2 ABG pO2 ABG HCO3 ABG Base Excess ABG Hemoglobin Oxyhemoglobin Sodium Potassium Chloride Carbon Dioxide 20 L BUN 115 H Creatinine 2.7 H Glucose 165 H POC Glucose Lactic Acid Calcium 8.0 L Ionized Calcium Phosphorus Magnesium Direct Bilirubin AST ALT Alkaline Phosphatase Lactate Dehydrogenase Troponin T C-Reactive Protein Total Protein Albumin Prealbumin Triglycerides 217 H Cholesterol LDL Cholesterol Direct HDL Cholesterol 25-OH Vitamin D Total PTH Intact Urine pH Urine WBC (Auto) Urine Creatinine Urine Total Protein Fluid Total Protein Vancomycin Trough Rheumatoid Factor Complement C4 Miscellaneous Test Crossmatch 09/12/16 09/12/16 09/12/16 07:22 09:59 12:21 WBC RBC Hgb Hct MCV MCH MCHC RDW Plt Count Lymph % (Auto) [place] % (Auto) Lymph # [place] # Baso # Seg Neutrophils % Seg Neuts % (Manual) Lymphocytes % (Manual) Monocytes % (Manual) Eosinophils % (Manual) Basophils % (Manual) Nucleated RBC % Seg Neutrophils # Seg Neutrophils # Man Lymphocytes # (Manual) Monocytes # (Manual) Eosinophils # (Manual) Basophils # (Manual) PT INR Fibrinogen dRVVT Confirm Interp Positive H Factor V Activity POC ABG pH POC ABG pCO2 POC ABG pO2 ABG pO2 ABG HCO3 ABG Base Excess ABG Hemoglobin Oxyhemoglobin Sodium Potassium Chloride Carbon Dioxide BUN Creatinine Glucose POC Glucose 224 H Lactic Acid Calcium Ionized Calcium Phosphorus Magnesium Direct Bilirubin AST ALT Alkaline Phosphatase Lactate Dehydrogenase Troponin T C-Reactive Protein 1.70 H Total Protein Albumin Prealbumin Triglycerides Cholesterol LDL Cholesterol Direct HDL Cholesterol 25-OH Vitamin D Total PTH Intact Urine pH Urine WBC (Auto) Urine Creatinine Urine Total Protein Fluid Total Protein Vancomycin Trough Rheumatoid Factor Complement C4 Miscellaneous Test Crossmatch 09/12/16 09/12/16 09/13/16 16:51 23:28 04:00 WBC 45.0 H* RBC Hgb 9.4 L Hct MCV 75 L MCH 23 L MCHC RDW 19.0 H Plt Count 470 H Lymph % (Auto) [place] % (Auto) Lymph # [place] # Baso # Seg Neutrophils % Seg Neuts % (Manual) 89.0 H Lymphocytes % (Manual) 5.0 L Monocytes % (Manual) Eosinophils % (Manual) Basophils % (Manual) Nucleated RBC % Seg Neutrophils # Seg Neutrophils # Man 40.1 H Lymphocytes # (Manual) Monocytes # (Manual) Eosinophils # (Manual) Basophils # (Manual) PT INR Fibrinogen dRVVT Confirm Interp Factor V Activity POC ABG pH POC ABG pCO2 POC ABG pO2 ABG pO2 ABG HCO3 ABG Base Excess ABG Hemoglobin Oxyhemoglobin Sodium Potassium Chloride Carbon Dioxide BUN Creatinine Glucose POC Glucose 169 H 150 H Lactic Acid Calcium Ionized Calcium Phosphorus Magnesium Direct Bilirubin AST ALT Alkaline Phosphatase Lactate Dehydrogenase Troponin T C-Reactive Protein Total Protein Albumin Prealbumin Triglycerides Cholesterol LDL Cholesterol Direct HDL Cholesterol 25-OH Vitamin D Total PTH Intact Urine pH Urine WBC (Auto) Urine Creatinine Urine Total Protein Fluid Total Protein Vancomycin Trough Rheumatoid Factor Complement C4 Miscellaneous Test Crossmatch 09/13/16 09/13/16 09/13/16 04:00 11:26 17:31 WBC RBC Hgb Hct MCV MCH MCHC RDW Plt Count Lymph % (Auto) [place] % (Auto) Lymph # [place] # Baso # Seg Neutrophils % Seg Neuts % (Manual) Lymphocytes % (Manual) Monocytes % (Manual) Eosinophils % (Manual) Basophils % (Manual) Nucleated RBC % Seg Neutrophils # Seg Neutrophils # Man Lymphocytes # (Manual) Monocytes # (Manual) Eosinophils # (Manual) Basophils # (Manual) PT INR Fibrinogen dRVVT Confirm Interp Factor V Activity POC ABG pH POC ABG pCO2 POC ABG pO2 ABG pO2 ABG HCO3 ABG Base Excess ABG Hemoglobin Oxyhemoglobin Sodium Potassium Chloride Carbon Dioxide 20 L BUN 116 H Creatinine 3.0 H Glucose 172 H POC Glucose 140 H 183 H Lactic Acid Calcium Ionized Calcium Phosphorus Magnesium Direct Bilirubin AST ALT Alkaline Phosphatase Lactate Dehydrogenase Troponin T C-Reactive Protein Total Protein 6.2 L Albumin 2.9 L Prealbumin Triglycerides Cholesterol LDL Cholesterol Direct HDL Cholesterol 25-OH Vitamin D Total PTH Intact Urine pH Urine WBC (Auto) Urine Creatinine Urine Total Protein Fluid Total Protein Vancomycin Trough Rheumatoid Factor Complement C4 Miscellaneous Test Crossmatch 09/13/16 09/14/16 09/14/16 23:23 04:06 04:07 WBC 29.4 H RBC Hgb 8.9 L Hct 27.3 L MCV 75 L MCH 24 L MCHC RDW 19.1 H Plt Count Lymph % (Auto) [place] % (Auto) Lymph # [place] # Baso # Seg Neutrophils % Seg Neuts % (Manual) 84.0 H Lymphocytes % (Manual) 6.0 L Monocytes % (Manual) 9.0 H Eosinophils % (Manual) Basophils % (Manual) Nucleated RBC % Seg Neutrophils # Seg Neutrophils # Man 24.7 H Lymphocytes # (Manual) Monocytes # (Manual) 2.6 H Eosinophils # (Manual) Basophils # (Manual) PT INR Fibrinogen dRVVT Confirm Interp Factor V Activity POC ABG pH 7.342 L POC ABG pCO2 POC ABG pO2 116 H ABG pO2 ABG HCO3 ABG Base Excess ABG Hemoglobin Oxyhemoglobin Sodium Potassium Chloride Carbon Dioxide BUN Creatinine Glucose POC Glucose 154 H Lactic Acid Calcium Ionized Calcium Phosphorus Magnesium Direct Bilirubin AST ALT Alkaline Phosphatase Lactate Dehydrogenase Troponin T C-Reactive Protein Total Protein Albumin Prealbumin Triglycerides Cholesterol LDL Cholesterol Direct HDL Cholesterol 25-OH Vitamin D Total PTH Intact Urine pH Urine WBC (Auto) Urine Creatinine Urine Total Protein Fluid Total Protein Vancomycin Trough Rheumatoid Factor Complement C4 Miscellaneous Test Crossmatch 09/14/16 09/14/16 09/14/16 04:07 05:29 12:19 WBC RBC Hgb Hct MCV MCH MCHC RDW Plt Count Lymph % (Auto) [place] % (Auto) Lymph # [place] # Baso # Seg Neutrophils % Seg Neuts % (Manual) Lymphocytes % (Manual) Monocytes % (Manual) Eosinophils % (Manual) Basophils % (Manual) Nucleated RBC % Seg Neutrophils # Seg Neutrophils # Man Lymphocytes # (Manual) Monocytes # (Manual) Eosinophils # (Manual) Basophils # (Manual) PT INR Fibrinogen dRVVT Confirm Interp Factor V Activity POC ABG pH POC ABG pCO2 POC ABG pO2 ABG pO2 ABG HCO3 ABG Base Excess ABG Hemoglobin Oxyhemoglobin Sodium 136 L Potassium Chloride Carbon Dioxide 18 L BUN 121 H Creatinine 2.8 H Glucose 214 H POC Glucose 239 H 181 H Lactic Acid Calcium Ionized Calcium Phosphorus Magnesium Direct Bilirubin AST ALT Alkaline Phosphatase Lactate Dehydrogenase Troponin T C-Reactive Protein Total Protein Albumin Prealbumin Triglycerides Cholesterol LDL Cholesterol Direct HDL Cholesterol 25-OH Vitamin D Total PTH Intact Urine pH Urine WBC (Auto) Urine Creatinine Urine Total Protein Fluid Total Protein Vancomycin Trough Rheumatoid Factor Complement C4 Miscellaneous Test Crossmatch 09/14/16 09/14/16 09/15/16 18:12 23:37 05:00 WBC 26.1 H RBC 3.05 L Hgb 7.2 L Hct 22.9 L MCV 75 L MCH 24 L MCHC RDW 19.0 H Plt Count Lymph % (Auto) [place] % (Auto) Lymph # [place] # Baso # Seg Neutrophils % Seg Neuts % (Manual) Lymphocytes % (Manual) Monocytes % (Manual) Eosinophils % (Manual) Basophils % (Manual) Nucleated RBC % Seg Neutrophils # Seg Neutrophils # Man Lymphocytes # (Manual) Monocytes # (Manual) Eosinophils # (Manual) Basophils # (Manual) PT INR Fibrinogen dRVVT Confirm Interp Factor V Activity POC ABG pH POC ABG pCO2 POC ABG pO2 ABG pO2 ABG HCO3 ABG Base Excess ABG Hemoglobin Oxyhemoglobin Sodium Potassium Chloride Carbon Dioxide BUN Creatinine Glucose POC Glucose 266 H 154 H Lactic Acid Calcium Ionized Calcium Phosphorus Magnesium Direct Bilirubin AST ALT Alkaline Phosphatase Lactate Dehydrogenase Troponin T C-Reactive Protein Total Protein Albumin Prealbumin Triglycerides Cholesterol LDL Cholesterol Direct HDL Cholesterol 25-OH Vitamin D Total PTH Intact Urine pH Urine WBC (Auto) Urine Creatinine Urine Total Protein Fluid Total Protein Vancomycin Trough Rheumatoid Factor Complement C4 Miscellaneous Test Crossmatch 09/15/16 09/15/16 09/15/16 05:00 05:17 12:45 WBC RBC Hgb Hct MCV MCH MCHC RDW Plt Count Lymph % (Auto) [place] % (Auto) Lymph # [place] # Baso # Seg Neutrophils % Seg Neuts % (Manual) Lymphocytes % (Manual) Monocytes % (Manual) Eosinophils % (Manual) Basophils % (Manual) Nucleated RBC % Seg Neutrophils # Seg Neutrophils # Man Lymphocytes # (Manual) Monocytes # (Manual) Eosinophils # (Manual) Basophils # (Manual) PT INR Fibrinogen dRVVT Confirm Interp Factor V Activity POC ABG pH POC ABG pCO2 POC ABG pO2 ABG pO2 ABG HCO3 ABG Base Excess ABG Hemoglobin Oxyhemoglobin Sodium Potassium 5.2 H Chloride Carbon Dioxide 18 L BUN 139 H Creatinine 3.7 H Glucose 227 H POC Glucose 226 H 244 H Lactic Acid Calcium 8.3 L Ionized Calcium Phosphorus Magnesium Direct Bilirubin AST ALT Alkaline Phosphatase Lactate Dehydrogenase Troponin T C-Reactive Protein Total Protein Albumin Prealbumin Triglycerides Cholesterol LDL Cholesterol Direct HDL Cholesterol 25-OH Vitamin D Total PTH Intact Urine pH Urine WBC (Auto) Urine Creatinine Urine Total Protein Fluid Total Protein Vancomycin Trough Rheumatoid Factor Complement C4 Miscellaneous Test Crossmatch 09/15/16 09/15/16 09/15/16 14:32 17:33 23:35 WBC RBC Hgb Hct MCV MCH MCHC RDW Plt Count Lymph % (Auto) [place] % (Auto) Lymph # [place] # Baso # Seg Neutrophils % Seg Neuts % (Manual) Lymphocytes % (Manual) Monocytes % (Manual) Eosinophils % (Manual) Basophils % (Manual) Nucleated RBC % Seg Neutrophils # Seg Neutrophils # Man Lymphocytes # (Manual) Monocytes # (Manual) Eosinophils # (Manual) Basophils # (Manual) PT INR Fibrinogen dRVVT Confirm Interp Factor V Activity POC ABG pH POC ABG pCO2 27.7 L POC ABG pO2 120 H ABG pO2 ABG HCO3 ABG Base Excess ABG Hemoglobin Oxyhemoglobin Sodium Potassium Chloride Carbon Dioxide BUN Creatinine Glucose POC Glucose 232 H 167 H Lactic Acid Calcium Ionized Calcium Phosphorus Magnesium Direct Bilirubin AST ALT Alkaline Phosphatase Lactate Dehydrogenase Troponin T C-Reactive Protein Total Protein Albumin Prealbumin Triglycerides Cholesterol LDL Cholesterol Direct HDL Cholesterol 25-OH Vitamin D Total PTH Intact Urine pH Urine WBC (Auto) Urine Creatinine Urine Total Protein Fluid Total Protein Vancomycin Trough Rheumatoid Factor Complement C4 Miscellaneous Test Crossmatch 09/16/16 09/16/16 09/16/16 03:58 10:27 10:27 WBC 19.0 H RBC 2.77 L Hgb 6.5 L Hct 20.9 L MCV 76 L MCH 23 L MCHC RDW 19.3 H Plt Count Lymph % (Auto) 11.0 L [place] % (Auto) Lymph # [place] # 1.1 H Baso # Seg Neutrophils % 82.5 H Seg Neuts % (Manual) Lymphocytes % (Manual) Monocytes % (Manual) Eosinophils % (Manual) Basophils % (Manual) Nucleated RBC % Seg Neutrophils # 15.7 H Seg Neutrophils # Man Lymphocytes # (Manual) Monocytes # (Manual) Eosinophils # (Manual) Basophils # (Manual) PT INR Fibrinogen dRVVT Confirm Interp Factor V Activity POC ABG pH POC ABG pCO2 POC ABG pO2 ABG pO2 ABG HCO3 ABG Base Excess ABG Hemoglobin Oxyhemoglobin Sodium Potassium Chloride 109.3 H Carbon Dioxide 18 L BUN 139 H Creatinine 4.1 H Glucose 144 H POC Glucose 146 H Lactic Acid Calcium 8.1 L Ionized Calcium Phosphorus Magnesium Direct Bilirubin AST ALT Alkaline Phosphatase Lactate Dehydrogenase Troponin T C-Reactive Protein Total Protein Albumin Prealbumin Triglycerides Cholesterol LDL Cholesterol Direct HDL Cholesterol 25-OH Vitamin D Total PTH Intact Urine pH Urine WBC (Auto) Urine Creatinine Urine Total Protein Fluid Total Protein Vancomycin Trough Rheumatoid Factor Complement C4 Miscellaneous Test Crossmatch 09/16/16 09/16/16 09/16/16 12:04 12:10 13:55 WBC RBC Hgb Hct MCV MCH MCHC RDW Plt Count Lymph % (Auto) [place] % (Auto) Lymph # [place] # Baso # Seg Neutrophils % Seg Neuts % (Manual) Lymphocytes % (Manual) Monocytes % (Manual) Eosinophils % (Manual) Basophils % (Manual) Nucleated RBC % Seg Neutrophils # Seg Neutrophils # Man Lymphocytes # (Manual) Monocytes # (Manual) Eosinophils # (Manual) Basophils # (Manual) PT INR Fibrinogen dRVVT Confirm Interp Factor V Activity POC ABG pH POC ABG pCO2 32.9 L POC ABG pO2 ABG pO2 ABG HCO3 ABG Base Excess ABG Hemoglobin Oxyhemoglobin Sodium Potassium Chloride Carbon Dioxide BUN Creatinine Glucose POC Glucose 185 H Lactic Acid Calcium Ionized Calcium Phosphorus Magnesium Direct Bilirubin AST ALT Alkaline Phosphatase Lactate Dehydrogenase Troponin T C-Reactive Protein Total Protein Albumin Prealbumin Triglycerides Cholesterol LDL Cholesterol Direct HDL Cholesterol 25-OH Vitamin D Total PTH Intact Urine pH Urine WBC (Auto) Urine Creatinine Urine Total Protein Fluid Total Protein Vancomycin Trough Rheumatoid Factor Complement C4 Miscellaneous Test Crossmatch See Detail 09/16/16 09/16/16 09/16/16 17:55 19:19 23:48 WBC RBC Hgb Hct MCV MCH MCHC RDW Plt Count Lymph % (Auto) [place] % (Auto) Lymph # [place] # Baso # Seg Neutrophils % Seg Neuts % (Manual) Lymphocytes % (Manual) Monocytes % (Manual) Eosinophils % (Manual) Basophils % (Manual) Nucleated RBC % Seg Neutrophils # Seg Neutrophils # Man Lymphocytes # (Manual) Monocytes # (Manual) Eosinophils # (Manual) Basophils # (Manual) PT INR Fibrinogen dRVVT Confirm Interp Factor V Activity POC ABG pH POC ABG pCO2 POC ABG pO2 ABG pO2 ABG HCO3 ABG Base Excess ABG Hemoglobin Oxyhemoglobin Sodium Potassium Chloride Carbon Dioxide BUN Creatinine Glucose POC Glucose 222 H 107 H Lactic Acid Calcium Ionized Calcium Phosphorus Magnesium Direct Bilirubin AST ALT Alkaline Phosphatase Lactate Dehydrogenase Troponin T C-Reactive Protein Total Protein Albumin Prealbumin Triglycerides Cholesterol LDL Cholesterol Direct HDL Cholesterol 25-OH Vitamin D Total PTH Intact Urine pH Urine WBC (Auto) Urine Creatinine 47.4 H Urine Total Protein 16 H Fluid Total Protein Vancomycin Trough Rheumatoid Factor Complement C4 Miscellaneous Test Crossmatch 09/17/16 09/17/16 09/17/16 03:45 03:45 04:55 WBC 19.6 H RBC 3.41 L Hgb 8.5 L Hct 26.7 L MCV 78 L MCH 25 L MCHC RDW 19.9 H Plt Count Lymph % (Auto) 9.3 L [place] % (Auto) Lymph # [place] # 1.2 H Baso # Seg Neutrophils % 83.9 H Seg Neuts % (Manual) Lymphocytes % (Manual) Monocytes % (Manual) Eosinophils % (Manual) Basophils % (Manual) Nucleated RBC % Seg Neutrophils # 16.4 H Seg Neutrophils # Man Lymphocytes # (Manual) Monocytes # (Manual) Eosinophils # (Manual) Basophils # (Manual) PT INR Fibrinogen dRVVT Confirm Interp Factor V Activity POC ABG pH POC ABG pCO2 POC ABG pO2 ABG pO2 ABG HCO3 ABG Base Excess ABG Hemoglobin Oxyhemoglobin Sodium 146 H Potassium 5.1 H Chloride 110.9 H Carbon Dioxide 16 L BUN 146 H Creatinine 4.0 H Glucose 108 H POC Glucose 133 H Lactic Acid Calcium Ionized Calcium Phosphorus Magnesium 3.00 H Direct Bilirubin AST ALT Alkaline Phosphatase Lactate Dehydrogenase Troponin T C-Reactive Protein Total Protein Albumin Prealbumin Triglycerides Cholesterol LDL Cholesterol Direct HDL Cholesterol 25-OH Vitamin D Total PTH Intact Urine pH Urine WBC (Auto) Urine Creatinine Urine Total Protein Fluid Total Protein Vancomycin Trough Rheumatoid Factor Complement C4 Miscellaneous Test Crossmatch 09/17/16 09/17/16 09/17/16 11:15 17:33 23:47 WBC RBC Hgb Hct MCV MCH MCHC RDW Plt Count Lymph % (Auto) [place] % (Auto) Lymph # [place] # Baso # Seg Neutrophils % Seg Neuts % (Manual) Lymphocytes % (Manual) Monocytes % (Manual) Eosinophils % (Manual) Basophils % (Manual) Nucleated RBC % Seg Neutrophils # Seg Neutrophils # Man Lymphocytes # (Manual) Monocytes # (Manual) Eosinophils # (Manual) Basophils # (Manual) PT INR Fibrinogen dRVVT Confirm Interp Factor V Activity POC ABG pH POC ABG pCO2 POC ABG pO2 ABG pO2 ABG HCO3 ABG Base Excess ABG Hemoglobin Oxyhemoglobin Sodium Potassium Chloride Carbon Dioxide BUN Creatinine Glucose POC Glucose 176 H 246 H 148 H Lactic Acid Calcium Ionized Calcium Phosphorus Magnesium Direct Bilirubin AST ALT Alkaline Phosphatase Lactate Dehydrogenase Troponin T C-Reactive Protein Total Protein Albumin Prealbumin Triglycerides Cholesterol LDL Cholesterol Direct HDL Cholesterol 25-OH Vitamin D Total PTH Intact Urine pH Urine WBC (Auto) Urine Creatinine Urine Total Protein Fluid Total Protein Vancomycin Trough Rheumatoid Factor Complement C4 Miscellaneous Test Crossmatch 09/18/16 09/18/16 09/18/16 05:33 08:31 08:31 WBC 18.0 H RBC 3.17 L Hgb 9.0 L Hct 25.7 L MCV MCH MCHC 35 H RDW 20.4 H Plt Count Lymph % (Auto) [place] % (Auto) Lymph # [place] # Baso # Seg Neutrophils % Seg Neuts % (Manual) Lymphocytes % (Manual) Monocytes % (Manual) Eosinophils % (Manual) Basophils % (Manual) Nucleated RBC % Seg Neutrophils # Seg Neutrophils # Man Lymphocytes # (Manual) Monocytes # (Manual) Eosinophils # (Manual) Basophils # (Manual) PT INR Fibrinogen dRVVT Confirm Interp Factor V Activity POC ABG pH POC ABG pCO2 POC ABG pO2 ABG pO2 ABG HCO3 ABG Base Excess ABG Hemoglobin Oxyhemoglobin Sodium Potassium Chloride Carbon Dioxide 15 L BUN 124 H Creatinine 3.8 H Glucose POC Glucose 120 H Lactic Acid Calcium 8.1 L Ionized Calcium Phosphorus Magnesium Direct Bilirubin AST ALT Alkaline Phosphatase Lactate Dehydrogenase Troponin T C-Reactive Protein Total Protein Albumin Prealbumin Triglycerides Cholesterol LDL Cholesterol Direct HDL Cholesterol 25-OH Vitamin D Total PTH Intact Urine pH Urine WBC (Auto) Urine Creatinine Urine Total Protein Fluid Total Protein Vancomycin Trough Rheumatoid Factor Complement C4 Miscellaneous Test Crossmatch 09/18/16 09/18/16 09/18/16 12:03 15:34 17:50 WBC RBC Hgb Hct MCV MCH MCHC RDW Plt Count Lymph % (Auto) [place] % (Auto) Lymph # [place] # Baso # Seg Neutrophils % Seg Neuts % (Manual) Lymphocytes % (Manual) Monocytes % (Manual) Eosinophils % (Manual) Basophils % (Manual) Nucleated RBC % Seg Neutrophils # Seg Neutrophils # Man Lymphocytes # (Manual) Monocytes # (Manual) Eosinophils # (Manual) Basophils # (Manual) PT INR Fibrinogen dRVVT Confirm Interp Factor V Activity POC ABG pH POC ABG pCO2 25.7 L POC ABG pO2 66 L ABG pO2 ABG HCO3 ABG Base Excess ABG Hemoglobin Oxyhemoglobin Sodium Potassium Chloride Carbon Dioxide BUN Creatinine Glucose POC Glucose 156 H 220 H Lactic Acid Calcium Ionized Calcium Phosphorus Magnesium Direct Bilirubin AST ALT Alkaline Phosphatase Lactate Dehydrogenase Troponin T C-Reactive Protein Total Protein Albumin Prealbumin Triglycerides Cholesterol LDL Cholesterol Direct HDL Cholesterol 25-OH Vitamin D Total PTH Intact Urine pH Urine WBC (Auto) Urine Creatinine Urine Total Protein Fluid Total Protein Vancomycin Trough Rheumatoid Factor Complement C4 Miscellaneous Test Crossmatch 09/19/16 09/19/16 09/19/16 06:21 09:50 09:50 WBC 17.1 H RBC 3.49 L Hgb 9.0 L Hct 28.1 L MCV MCH 26 L MCHC RDW 20.8 H Plt Count Lymph % (Auto) 11.5 L [place] % (Auto) 7.5 H Lymph # [place] # 1.3 H Baso # Seg Neutrophils % 79.8 H Seg Neuts % (Manual) Lymphocytes % (Manual) Monocytes % (Manual) Eosinophils % (Manual) Basophils % (Manual) Nucleated RBC % Seg Neutrophils # 13.7 H Seg Neutrophils # Man Lymphocytes # (Manual) Monocytes # (Manual) Eosinophils # (Manual) Basophils # (Manual) PT INR Fibrinogen dRVVT Confirm Interp Factor V Activity POC ABG pH POC ABG pCO2 POC ABG pO2 ABG pO2 ABG HCO3 ABG Base Excess ABG Hemoglobin Oxyhemoglobin Sodium Potassium Chloride 108.6 H Carbon Dioxide 15 L BUN 125 H Creatinine 4.1 H Glucose 124 H POC Glucose 119 H Lactic Acid Calcium Ionized Calcium Phosphorus Magnesium Direct Bilirubin AST ALT Alkaline Phosphatase Lactate Dehydrogenase Troponin T C-Reactive Protein Total Protein Albumin Prealbumin Triglycerides Cholesterol LDL Cholesterol Direct HDL Cholesterol 25-OH Vitamin D Total PTH Intact Urine pH Urine WBC (Auto) Urine Creatinine Urine Total Protein Fluid Total Protein Vancomycin Trough Rheumatoid Factor Complement C4 Miscellaneous Test Crossmatch 09/19/16 09/19/16 09/19/16 11:25 17:53 23:36 WBC RBC Hgb Hct MCV MCH MCHC RDW Plt Count Lymph % (Auto) [place] % (Auto) Lymph # [place] # Baso # Seg Neutrophils % Seg Neuts % (Manual) Lymphocytes % (Manual) Monocytes % (Manual) Eosinophils % (Manual) Basophils % (Manual) Nucleated RBC % Seg Neutrophils # Seg Neutrophils # Man Lymphocytes # (Manual) Monocytes # (Manual) Eosinophils # (Manual) Basophils # (Manual) PT INR Fibrinogen dRVVT Confirm Interp Factor V Activity POC ABG pH POC ABG pCO2 POC ABG pO2 ABG pO2 ABG HCO3 ABG Base Excess ABG Hemoglobin Oxyhemoglobin Sodium Potassium Chloride Carbon Dioxide BUN Creatinine Glucose POC Glucose 160 H 245 H 121 H Lactic Acid Calcium Ionized Calcium Phosphorus Magnesium Direct Bilirubin AST ALT Alkaline Phosphatase Lactate Dehydrogenase Troponin T C-Reactive Protein Total Protein Albumin Prealbumin Triglycerides Cholesterol LDL Cholesterol Direct HDL Cholesterol 25-OH Vitamin D Total PTH Intact Urine pH Urine WBC (Auto) Urine Creatinine Urine Total Protein Fluid Total Protein Vancomycin Trough Rheumatoid Factor Complement C4 Miscellaneous Test Crossmatch 09/20/16 09/20/16 09/20/16 04:10 04:10 04:10 WBC 17.0 H RBC 3.21 L Hgb 8.2 L Hct 25.5 L MCV MCH 26 L MCHC RDW 20.9 H Plt Count Lymph % (Auto) [place] % (Auto) Lymph # [place] # Baso # Seg Neutrophils % Seg Neuts % (Manual) Lymphocytes % (Manual) Monocytes % (Manual) Eosinophils % (Manual) Basophils % (Manual) Nucleated RBC % Seg Neutrophils # Seg Neutrophils # Man Lymphocytes # (Manual) Monocytes # (Manual) Eosinophils # (Manual) Basophils # (Manual) PT INR Fibrinogen dRVVT Confirm Interp Factor V Activity POC ABG pH POC ABG pCO2 POC ABG pO2 ABG pO2 ABG HCO3 ABG Base Excess ABG Hemoglobin Oxyhemoglobin Sodium Potassium Chloride 111.0 H Carbon Dioxide 16 L BUN 129 H Creatinine 3.7 H Glucose 115 H POC Glucose Lactic Acid Calcium 8.2 L Ionized Calcium Phosphorus Magnesium Direct Bilirubin AST ALT Alkaline Phosphatase Lactate Dehydrogenase Troponin T C-Reactive Protein Total Protein Albumin Prealbumin Triglycerides 243 H Cholesterol LDL Cholesterol Direct HDL Cholesterol 25-OH Vitamin D Total PTH Intact Urine pH Urine WBC (Auto) Urine Creatinine Urine Total Protein Fluid Total Protein Vancomycin Trough Rheumatoid Factor Complement C4 Miscellaneous Test Crossmatch 09/20/16 09/20/16 09/20/16 05:40 11:52 16:50 WBC RBC Hgb Hct MCV MCH MCHC RDW Plt Count Lymph % (Auto) [place] % (Auto) Lymph # [place] # Baso # Seg Neutrophils % Seg Neuts % (Manual) Lymphocytes % (Manual) Monocytes % (Manual) Eosinophils % (Manual) Basophils % (Manual) Nucleated RBC % Seg Neutrophils # Seg Neutrophils # Man Lymphocytes # (Manual) Monocytes # (Manual) Eosinophils # (Manual) Basophils # (Manual) PT INR Fibrinogen dRVVT Confirm Interp Factor V Activity POC ABG pH POC ABG pCO2 POC ABG pO2 ABG pO2 ABG HCO3 ABG Base Excess ABG Hemoglobin Oxyhemoglobin Sodium Potassium Chloride Carbon Dioxide BUN Creatinine Glucose POC Glucose 131 H 183 H 236 H Lactic Acid Calcium Ionized Calcium Phosphorus Magnesium Direct Bilirubin AST ALT Alkaline Phosphatase Lactate Dehydrogenase Troponin T C-Reactive Protein Total Protein Albumin Prealbumin Triglycerides Cholesterol LDL Cholesterol Direct HDL Cholesterol 25-OH Vitamin D Total PTH Intact Urine pH Urine WBC (Auto) Urine Creatinine Urine Total Protein Fluid Total Protein Vancomycin Trough Rheumatoid Factor Complement C4 Miscellaneous Test Crossmatch 09/20/16 09/21/16 09/21/16 23:51 03:30 04:44 WBC RBC Hgb Hct MCV MCH MCHC RDW Plt Count Lymph % (Auto) [place] % (Auto) Lymph # [place] # Baso # Seg Neutrophils % Seg Neuts % (Manual) Lymphocytes % (Manual) Monocytes % (Manual) Eosinophils % (Manual) Basophils % (Manual) Nucleated RBC % Seg Neutrophils # Seg Neutrophils # Man Lymphocytes # (Manual) Monocytes # (Manual) Eosinophils # (Manual) Basophils # (Manual) PT INR Fibrinogen dRVVT Confirm Interp Factor V Activity POC ABG pH POC ABG pCO2 POC ABG pO2 ABG pO2 ABG HCO3 ABG Base Excess ABG Hemoglobin Oxyhemoglobin Sodium Potassium Chloride Carbon Dioxide BUN Creatinine Glucose POC Glucose 114 H 141 H Lactic Acid Calcium Ionized Calcium Phosphorus Magnesium 2.70 H Direct Bilirubin AST ALT Alkaline Phosphatase Lactate Dehydrogenase Troponin T C-Reactive Protein Total Protein Albumin Prealbumin Triglycerides Cholesterol LDL Cholesterol Direct HDL Cholesterol 25-OH Vitamin D Total PTH Intact Urine pH Urine WBC (Auto) Urine Creatinine Urine Total Protein Fluid Total Protein Vancomycin Trough Rheumatoid Factor Complement C4 Miscellaneous Test Crossmatch 09/21/16 09/21/16 09/21/16 07:45 07:45 10:01 WBC 13.8 H RBC 2.94 L Hgb 7.5 L Hct 23.5 L MCV MCH 26 L MCHC RDW 21.2 H Plt Count Lymph % (Auto) 6.9 L [place] % (Auto) 9.4 H Lymph # 0.9 L [place] # 1.3 H Baso # Seg Neutrophils % 83.2 H Seg Neuts % (Manual) Lymphocytes % (Manual) Monocytes % (Manual) Eosinophils % (Manual) Basophils % (Manual) Nucleated RBC % Seg Neutrophils # 11.5 H Seg Neutrophils # Man Lymphocytes # (Manual) Monocytes # (Manual) Eosinophils # (Manual) Basophils # (Manual) PT INR Fibrinogen dRVVT Confirm Interp Factor V Activity POC ABG pH 7.308 L POC ABG pCO2 31.9 L POC ABG pO2 148 H ABG pO2 ABG HCO3 ABG Base Excess ABG Hemoglobin Oxyhemoglobin Sodium 147 H Potassium Chloride 114.2 H Carbon Dioxide 15 L BUN 120 H Creatinine 3.9 H Glucose 156 H POC Glucose Lactic Acid Calcium 8.2 L Ionized Calcium Phosphorus Magnesium Direct Bilirubin AST ALT Alkaline Phosphatase Lactate Dehydrogenase Troponin T C-Reactive Protein Total Protein Albumin Prealbumin Triglycerides Cholesterol LDL Cholesterol Direct HDL Cholesterol 25-OH Vitamin D Total PTH Intact Urine pH Urine WBC (Auto) Urine Creatinine Urine Total Protein Fluid Total Protein Vancomycin Trough Rheumatoid Factor Complement C4 Miscellaneous Test Crossmatch 09/21/16 09/21/16 09/21/16 12:00 12:03 13:00 WBC RBC Hgb Hct MCV MCH MCHC RDW Plt Count Lymph % (Auto) [place] % (Auto) Lymph # [place] # Baso # Seg Neutrophils % Seg Neuts % (Manual) Lymphocytes % (Manual) Monocytes % (Manual) Eosinophils % (Manual) Basophils % (Manual) Nucleated RBC % Seg Neutrophils # Seg Neutrophils # Man Lymphocytes # (Manual) Monocytes # (Manual) Eosinophils # (Manual) Basophils # (Manual) PT INR Fibrinogen dRVVT Confirm Interp Factor V Activity POC ABG pH POC ABG pCO2 POC ABG pO2 ABG pO2 ABG HCO3 ABG Base Excess ABG Hemoglobin Oxyhemoglobin Sodium Potassium Chloride Carbon Dioxide BUN Creatinine Glucose POC Glucose 163 H Lactic Acid Calcium Ionized Calcium Phosphorus Magnesium Direct Bilirubin AST ALT Alkaline Phosphatase Lactate Dehydrogenase Troponin T C-Reactive Protein Total Protein Albumin Prealbumin Triglycerides Cholesterol LDL Cholesterol Direct HDL Cholesterol 25-OH Vitamin D Total PTH Intact Urine pH Urine WBC (Auto) Urine Creatinine 54.8 H Urine Total Protein Fluid Total Protein Vancomycin Trough 2.3 L Rheumatoid Factor Complement C4 Miscellaneous Test Crossmatch 09/21/16 09/21/16 09/22/16 16:51 23:17 06:27 WBC RBC Hgb Hct MCV MCH MCHC RDW Plt Count Lymph % (Auto) [place] % (Auto) Lymph # [place] # Baso # Seg Neutrophils % Seg Neuts % (Manual) Lymphocytes % (Manual) Monocytes % (Manual) Eosinophils % (Manual) Basophils % (Manual) Nucleated RBC % Seg Neutrophils # Seg Neutrophils # Man Lymphocytes # (Manual) Monocytes # (Manual) Eosinophils # (Manual) Basophils # (Manual) PT INR Fibrinogen dRVVT Confirm Interp Factor V Activity POC ABG pH POC ABG pCO2 POC ABG pO2 ABG pO2 ABG HCO3 ABG Base Excess ABG Hemoglobin Oxyhemoglobin Sodium Potassium Chloride Carbon Dioxide BUN Creatinine Glucose POC Glucose 206 H 114 H 115 H Lactic Acid Calcium Ionized Calcium Phosphorus Magnesium Direct Bilirubin AST ALT Alkaline Phosphatase Lactate Dehydrogenase Troponin T C-Reactive Protein Total Protein Albumin Prealbumin Triglycerides Cholesterol LDL Cholesterol Direct HDL Cholesterol 25-OH Vitamin D Total PTH Intact Urine pH Urine WBC (Auto) Urine Creatinine Urine Total Protein Fluid Total Protein Vancomycin Trough Rheumatoid Factor Complement C4 Miscellaneous Test Crossmatch 09/22/16 09/22/16 09/22/16 07:50 07:50 12:00 WBC 17.8 H RBC 3.04 L Hgb 8.0 L Hct 24.7 L MCV MCH 26 L MCHC RDW 21.6 H Plt Count Lymph % (Auto) [place] % (Auto) Lymph # [place] # Baso # Seg Neutrophils % Seg Neuts % (Manual) Lymphocytes % (Manual) Monocytes % (Manual) Eosinophils % (Manual) Basophils % (Manual) Nucleated RBC % Seg Neutrophils # Seg Neutrophils # Man Lymphocytes # (Manual) Monocytes # (Manual) Eosinophils # (Manual) Basophils # (Manual) PT INR Fibrinogen dRVVT Confirm Interp Factor V Activity POC ABG pH POC ABG pCO2 POC ABG pO2 ABG pO2 ABG HCO3 ABG Base Excess ABG Hemoglobin Oxyhemoglobin Sodium 150 H Potassium Chloride 118.2 H Carbon Dioxide 14 L BUN 111 H Creatinine 3.7 H Glucose 157 H POC Glucose 183 H Lactic Acid Calcium Ionized Calcium Phosphorus Magnesium Direct Bilirubin AST ALT Alkaline Phosphatase Lactate Dehydrogenase Troponin T C-Reactive Protein Total Protein Albumin Prealbumin Triglycerides Cholesterol LDL Cholesterol Direct HDL Cholesterol 25-OH Vitamin D Total PTH Intact Urine pH Urine WBC (Auto) Urine Creatinine Urine Total Protein Fluid Total Protein Vancomycin Trough Rheumatoid Factor Complement C4 Miscellaneous Test Crossmatch 09/22/16 09/22/16 09/23/16 17:29 23:10 05:00 WBC 19.2 H RBC 3.13 L Hgb 8.0 L Hct 25.2 L MCV MCH 26 L MCHC RDW 22.1 H Plt Count Lymph % (Auto) [place] % (Auto) Lymph # [place] # Baso # Seg Neutrophils % Seg Neuts % (Manual) 92.0 H Lymphocytes % (Manual) 3.0 L Monocytes % (Manual) Eosinophils % (Manual) Basophils % (Manual) Nucleated RBC % Seg Neutrophils # Seg Neutrophils # Man 17.7 H Lymphocytes # (Manual) 0.6 L Monocytes # (Manual) Eosinophils # (Manual) Basophils # (Manual) PT INR Fibrinogen dRVVT Confirm Interp Factor V Activity POC ABG pH POC ABG pCO2 POC ABG pO2 ABG pO2 ABG HCO3 ABG Base Excess ABG Hemoglobin Oxyhemoglobin Sodium Potassium Chloride Carbon Dioxide BUN Creatinine Glucose POC Glucose 197 H 169 H Lactic Acid Calcium Ionized Calcium Phosphorus Magnesium Direct Bilirubin AST ALT Alkaline Phosphatase Lactate Dehydrogenase Troponin T C-Reactive Protein Total Protein Albumin Prealbumin Triglycerides Cholesterol LDL Cholesterol Direct HDL Cholesterol 25-OH Vitamin D Total PTH Intact Urine pH Urine WBC (Auto) Urine Creatinine Urine Total Protein Fluid Total Protein Vancomycin Trough Rheumatoid Factor Complement C4 Miscellaneous Test Crossmatch 09/23/16 09/23/16 09/23/16 05:00 05:00 05:10 WBC RBC Hgb Hct MCV MCH MCHC RDW Plt Count Lymph % (Auto) [place] % (Auto) Lymph # [place] # Baso # Seg Neutrophils % Seg Neuts % (Manual) Lymphocytes % (Manual) Monocytes % (Manual) Eosinophils % (Manual) Basophils % (Manual) Nucleated RBC % Seg Neutrophils # Seg Neutrophils # Man Lymphocytes # (Manual) Monocytes # (Manual) Eosinophils # (Manual) Basophils # (Manual) PT INR Fibrinogen dRVVT Confirm Interp Factor V Activity POC ABG pH POC ABG pCO2 POC ABG pO2 ABG pO2 ABG HCO3 ABG Base Excess ABG Hemoglobin Oxyhemoglobin Sodium 147 H Potassium 3.2 L Chloride 115.7 H Carbon Dioxide 13 L BUN 111 H Creatinine 3.8 H Glucose 194 H POC Glucose 188 H Lactic Acid Calcium 7.3 L D Ionized Calcium Phosphorus Magnesium Direct Bilirubin AST ALT Alkaline Phosphatase Lactate Dehydrogenase Troponin T C-Reactive Protein 3.20 H Total Protein Albumin Prealbumin Triglycerides Cholesterol LDL Cholesterol Direct HDL Cholesterol 25-OH Vitamin D Total PTH Intact Urine pH Urine WBC (Auto) Urine Creatinine Urine Total Protein Fluid Total Protein Vancomycin Trough Rheumatoid Factor Complement C4 Miscellaneous Test Crossmatch 09/23/16 09/23/16 09/23/16 11:37 12:29 18:01 WBC RBC Hgb Hct MCV MCH MCHC RDW Plt Count Lymph % (Auto) [place] % (Auto) Lymph # [place] # Baso # Seg Neutrophils % Seg Neuts % (Manual) Lymphocytes % (Manual) Monocytes % (Manual) Eosinophils % (Manual) Basophils % (Manual) Nucleated RBC % Seg Neutrophils # Seg Neutrophils # Man Lymphocytes # (Manual) Monocytes # (Manual) Eosinophils # (Manual) Basophils # (Manual) PT INR Fibrinogen dRVVT Confirm Interp Factor V Activity POC ABG pH POC ABG pCO2 18.9 L POC ABG pO2 143 H ABG pO2 ABG HCO3 ABG Base Excess ABG Hemoglobin Oxyhemoglobin Sodium Potassium Chloride Carbon Dioxide BUN Creatinine Glucose POC Glucose 153 H 108 H Lactic Acid Calcium Ionized Calcium Phosphorus Magnesium Direct Bilirubin AST ALT Alkaline Phosphatase Lactate Dehydrogenase Troponin T C-Reactive Protein Total Protein Albumin Prealbumin Triglycerides Cholesterol LDL Cholesterol Direct HDL Cholesterol 25-OH Vitamin D Total PTH Intact Urine pH Urine WBC (Auto) Urine Creatinine Urine Total Protein Fluid Total Protein Vancomycin Trough Rheumatoid Factor Complement C4 Miscellaneous Test Crossmatch 09/23/16 09/23/16 09/24/16 21:19 23:43 05:16 WBC RBC Hgb Hct MCV MCH MCHC RDW Plt Count Lymph % (Auto) [place] % (Auto) Lymph # [place] # Baso # Seg Neutrophils % Seg Neuts % (Manual) Lymphocytes % (Manual) Monocytes % (Manual) Eosinophils % (Manual) Basophils % (Manual) Nucleated RBC % Seg Neutrophils # Seg Neutrophils # Man Lymphocytes # (Manual) Monocytes # (Manual) Eosinophils # (Manual) Basophils # (Manual) PT INR Fibrinogen dRVVT Confirm Interp Factor V Activity POC ABG pH POC ABG pCO2 17.3 L POC ABG pO2 112 H ABG pO2 ABG HCO3 ABG Base Excess ABG Hemoglobin Oxyhemoglobin Sodium Potassium Chloride Carbon Dioxide BUN Creatinine Glucose POC Glucose 143 H 164 H Lactic Acid Calcium Ionized Calcium Phosphorus Magnesium Direct Bilirubin AST ALT Alkaline Phosphatase Lactate Dehydrogenase Troponin T C-Reactive Protein Total Protein Albumin Prealbumin Triglycerides Cholesterol LDL Cholesterol Direct HDL Cholesterol 25-OH Vitamin D Total PTH Intact Urine pH Urine WBC (Auto) Urine Creatinine Urine Total Protein Fluid Total Protein Vancomycin Trough Rheumatoid Factor Complement C4 Miscellaneous Test Crossmatch 09/24/16 09/24/16 09/24/16 05:21 11:58 17:06 WBC RBC Hgb Hct MCV MCH MCHC RDW Plt Count Lymph % (Auto) [place] % (Auto) Lymph # [place] # Baso # Seg Neutrophils % Seg Neuts % (Manual) Lymphocytes % (Manual) Monocytes % (Manual) Eosinophils % (Manual) Basophils % (Manual) Nucleated RBC % Seg Neutrophils # Seg Neutrophils # Man Lymphocytes # (Manual) Monocytes # (Manual) Eosinophils # (Manual) Basophils # (Manual) PT INR Fibrinogen dRVVT Confirm Interp Factor V Activity POC ABG pH POC ABG pCO2 POC ABG pO2 ABG pO2 ABG HCO3 ABG Base Excess ABG Hemoglobin Oxyhemoglobin Sodium Potassium Chloride Carbon Dioxide 10 L BUN 103 H Creatinine 4.3 H Glucose 163 H POC Glucose 173 H 167 H Lactic Acid Calcium 6.5 L Ionized Calcium Phosphorus Magnesium Direct Bilirubin AST ALT Alkaline Phosphatase Lactate Dehydrogenase Troponin T C-Reactive Protein Total Protein Albumin Prealbumin Triglycerides Cholesterol LDL Cholesterol Direct HDL Cholesterol 25-OH Vitamin D Total PTH Intact Urine pH Urine WBC (Auto) Urine Creatinine Urine Total Protein Fluid Total Protein Vancomycin Trough Rheumatoid Factor Complement C4 Miscellaneous Test Crossmatch 09/24/16 09/24/16 09/24/16 20:15 21:02 23:48 WBC RBC Hgb Hct MCV MCH MCHC RDW Plt Count Lymph % (Auto) [place] % (Auto) Lymph # [place] # Baso # Seg Neutrophils % Seg Neuts % (Manual) Lymphocytes % (Manual) Monocytes % (Manual) Eosinophils % (Manual) Basophils % (Manual) Nucleated RBC % Seg Neutrophils # Seg Neutrophils # Man Lymphocytes # (Manual) Monocytes # (Manual) Eosinophils # (Manual) Basophils # (Manual) PT INR Fibrinogen dRVVT Confirm Interp Factor V Activity POC ABG pH 7.288 L POC ABG pCO2 30.2 L 21.5 L POC ABG pO2 32 L 39 L ABG pO2 ABG HCO3 ABG Base Excess ABG Hemoglobin Oxyhemoglobin Sodium Potassium Chloride Carbon Dioxide BUN Creatinine Glucose POC Glucose 109 H Lactic Acid Calcium Ionized Calcium Phosphorus Magnesium Direct Bilirubin AST ALT Alkaline Phosphatase Lactate Dehydrogenase Troponin T C-Reactive Protein Total Protein Albumin Prealbumin Triglycerides Cholesterol LDL Cholesterol Direct HDL Cholesterol 25-OH Vitamin D Total PTH Intact Urine pH Urine WBC (Auto) Urine Creatinine Urine Total Protein Fluid Total Protein Vancomycin Trough Rheumatoid Factor Complement C4 Miscellaneous Test Crossmatch 09/25/16 09/25/16 09/25/16 04:20 04:20 04:20 WBC RBC 2.58 L Hgb 7.0 L Hct 21.0 L MCV MCH 27 L MCHC RDW 23.8 H Plt Count Lymph % (Auto) [place] % (Auto) Lymph # [place] # Baso # Seg Neutrophils % Seg Neuts % (Manual) Lymphocytes % (Manual) 12.0 L Monocytes % (Manual) Eosinophils % (Manual) 7.0 H Basophils % (Manual) 2.0 H Nucleated RBC % Seg Neutrophils # Seg Neutrophils # Man Lymphocytes # (Manual) 0.9 L Monocytes # (Manual) Eosinophils # (Manual) 0.5 H Basophils # (Manual) PT INR Fibrinogen dRVVT Confirm Interp Factor V Activity POC ABG pH POC ABG pCO2 POC ABG pO2 ABG pO2 ABG HCO3 ABG Base Excess ABG Hemoglobin Oxyhemoglobin Sodium Potassium Chloride Carbon Dioxide 15 L BUN 72 H Creatinine 3.8 H Glucose POC Glucose Lactic Acid Calcium 6.0 L Ionized Calcium Phosphorus 4.60 H Magnesium 1.60 L Direct Bilirubin AST ALT Alkaline Phosphatase Lactate Dehydrogenase Troponin T C-Reactive Protein Total Protein Albumin Prealbumin Triglycerides Cholesterol LDL Cholesterol Direct HDL Cholesterol 25-OH Vitamin D Total PTH Intact Urine pH Urine WBC (Auto) Urine Creatinine Urine Total Protein Fluid Total Protein Vancomycin Trough Rheumatoid Factor Complement C4 Miscellaneous Test Crossmatch 09/25/16 09/25/16 09/25/16 04:57 08:02 10:30 WBC RBC Hgb Hct MCV MCH MCHC RDW Plt Count Lymph % (Auto) [place] % (Auto) Lymph # [place] # Baso # Seg Neutrophils % Seg Neuts % (Manual) Lymphocytes % (Manual) Monocytes % (Manual) Eosinophils % (Manual) Basophils % (Manual) Nucleated RBC % Seg Neutrophils # Seg Neutrophils # Man Lymphocytes # (Manual) Monocytes # (Manual) Eosinophils # (Manual) Basophils # (Manual) PT INR Fibrinogen dRVVT Confirm Interp Factor V Activity POC ABG pH POC ABG pCO2 24.7 L POC ABG pO2 152 H ABG pO2 ABG HCO3 ABG Base Excess ABG Hemoglobin Oxyhemoglobin Sodium Potassium Chloride Carbon Dioxide BUN Creatinine Glucose POC Glucose 113 H Lactic Acid Calcium Ionized Calcium Phosphorus Magnesium Direct Bilirubin AST ALT Alkaline Phosphatase Lactate Dehydrogenase Troponin T C-Reactive Protein Total Protein Albumin Prealbumin Triglycerides Cholesterol LDL Cholesterol Direct HDL Cholesterol 25-OH Vitamin D Total PTH Intact Urine pH Urine WBC (Auto) Urine Creatinine Urine Total Protein Fluid Total Protein Vancomycin Trough Rheumatoid Factor Complement C4 Miscellaneous Test Crossmatch See Detail 09/25/16 09/25/16 09/25/16 12:05 17:44 23:47 WBC RBC Hgb Hct MCV MCH MCHC RDW Plt Count Lymph % (Auto) [place] % (Auto) Lymph # [place] # Baso # Seg Neutrophils % Seg Neuts % (Manual) Lymphocytes % (Manual) Monocytes % (Manual) Eosinophils % (Manual) Basophils % (Manual) Nucleated RBC % Seg Neutrophils # Seg Neutrophils # Man Lymphocytes # (Manual) Monocytes # (Manual) Eosinophils # (Manual) Basophils # (Manual) PT INR Fibrinogen dRVVT Confirm Interp Factor V Activity POC ABG pH POC ABG pCO2 POC ABG pO2 ABG pO2 ABG HCO3 ABG Base Excess ABG Hemoglobin Oxyhemoglobin Sodium Potassium Chloride Carbon Dioxide BUN Creatinine Glucose POC Glucose 117 H 119 H 150 H Lactic Acid Calcium Ionized Calcium Phosphorus Magnesium Direct Bilirubin AST ALT Alkaline Phosphatase Lactate Dehydrogenase Troponin T C-Reactive Protein Total Protein Albumin Prealbumin Triglycerides Cholesterol LDL Cholesterol Direct HDL Cholesterol 25-OH Vitamin D Total PTH Intact Urine pH Urine WBC (Auto) Urine Creatinine Urine Total Protein Fluid Total Protein Vancomycin Trough Rheumatoid Factor Complement C4 Miscellaneous Test Crossmatch 09/26/16 09/26/16 09/26/16 04:25 04:25 04:25 WBC RBC 2.65 L Hgb 7.4 L Hct 21.6 L MCV MCH MCHC RDW 22.5 H Plt Count Lymph % (Auto) [place] % (Auto) Lymph # [place] # Baso # Seg Neutrophils % Seg Neuts % (Manual) Lymphocytes % (Manual) 6.0 L Monocytes % (Manual) Eosinophils % (Manual) 11.0 H Basophils % (Manual) Nucleated RBC % Seg Neutrophils # Seg Neutrophils # Man Lymphocytes # (Manual) 0.4 L Monocytes # (Manual) Eosinophils # (Manual) 0.6 H Basophils # (Manual) PT INR Fibrinogen dRVVT Confirm Interp Factor V Activity POC ABG pH POC ABG pCO2 POC ABG pO2 ABG pO2 ABG HCO3 ABG Base Excess ABG Hemoglobin Oxyhemoglobin Sodium Potassium Chloride 97.0 L Carbon Dioxide 19 L BUN 43 H Creatinine 2.6 H Glucose 130 H POC Glucose Lactic Acid 4.40 H* Calcium 6.7 L Ionized Calcium Phosphorus Magnesium Direct Bilirubin AST ALT Alkaline Phosphatase Lactate Dehydrogenase Troponin T C-Reactive Protein Total Protein Albumin Prealbumin Triglycerides Cholesterol LDL Cholesterol Direct HDL Cholesterol 25-OH Vitamin D Total PTH Intact Urine pH Urine WBC (Auto) Urine Creatinine Urine Total Protein Fluid Total Protein Vancomycin Trough Rheumatoid Factor Complement C4 Miscellaneous Test Crossmatch 09/26/16 09/26/16 09/26/16 05:20 11:44 12:12 WBC RBC Hgb Hct MCV MCH MCHC RDW Plt Count Lymph % (Auto) [place] % (Auto) Lymph # [place] # Baso # Seg Neutrophils % Seg Neuts % (Manual) Lymphocytes % (Manual) Monocytes % (Manual) Eosinophils % (Manual) Basophils % (Manual) Nucleated RBC % Seg Neutrophils # Seg Neutrophils # Man Lymphocytes # (Manual) Monocytes # (Manual) Eosinophils # (Manual) Basophils # (Manual) PT INR Fibrinogen dRVVT Confirm Interp Factor V Activity POC ABG pH POC ABG pCO2 27.0 L POC ABG pO2 69 L ABG pO2 ABG HCO3 ABG Base Excess ABG Hemoglobin Oxyhemoglobin Sodium Potassium Chloride Carbon Dioxide BUN Creatinine Glucose POC Glucose 121 H 128 H Lactic Acid Calcium Ionized Calcium Phosphorus Magnesium Direct Bilirubin AST ALT Alkaline Phosphatase Lactate Dehydrogenase Troponin T C-Reactive Protein Total Protein Albumin Prealbumin Triglycerides Cholesterol LDL Cholesterol Direct HDL Cholesterol 25-OH Vitamin D Total PTH Intact Urine pH Urine WBC (Auto) Urine Creatinine Urine Total Protein Fluid Total Protein Vancomycin Trough Rheumatoid Factor Complement C4 Miscellaneous Test Crossmatch 09/26/16 09/26/16 09/27/16 18:31 23:40 08:20 WBC RBC Hgb Hct MCV MCH MCHC RDW Plt Count Lymph % (Auto) [place] % (Auto) Lymph # [place] # Baso # Seg Neutrophils % Seg Neuts % (Manual) Lymphocytes % (Manual) Monocytes % (Manual) Eosinophils % (Manual) Basophils % (Manual) Nucleated RBC % Seg Neutrophils # Seg Neutrophils # Man Lymphocytes # (Manual) Monocytes # (Manual) Eosinophils # (Manual) Basophils # (Manual) PT INR Fibrinogen dRVVT Confirm Interp Factor V Activity POC ABG pH POC ABG pCO2 POC ABG pO2 ABG pO2 ABG HCO3 ABG Base Excess ABG Hemoglobin Oxyhemoglobin Sodium Potassium Chloride Carbon Dioxide BUN Creatinine Glucose POC Glucose 120 H 133 H Lactic Acid 4.10 H* Calcium Ionized Calcium Phosphorus Magnesium Direct Bilirubin AST ALT Alkaline Phosphatase Lactate Dehydrogenase Troponin T C-Reactive Protein Total Protein Albumin Prealbumin Triglycerides Cholesterol LDL Cholesterol Direct HDL Cholesterol 25-OH Vitamin D Total PTH Intact Urine pH Urine WBC (Auto) Urine Creatinine Urine Total Protein Fluid Total Protein Vancomycin Trough Rheumatoid Factor Complement C4 Miscellaneous Test Crossmatch 09/27/16 09/27/16 09/27/16 11:23 15:00 18:15 WBC RBC Hgb Hct MCV MCH MCHC RDW Plt Count Lymph % (Auto) [place] % (Auto) Lymph # [place] # Baso # Seg Neutrophils % Seg Neuts % (Manual) Lymphocytes % (Manual) Monocytes % (Manual) Eosinophils % (Manual) Basophils % (Manual) Nucleated RBC % Seg Neutrophils # Seg Neutrophils # Man Lymphocytes # (Manual) Monocytes # (Manual) Eosinophils # (Manual) Basophils # (Manual) PT INR Fibrinogen dRVVT Confirm Interp Factor V Activity POC ABG pH 7.459 H POC ABG pCO2 27.1 L POC ABG pO2 140 H ABG pO2 ABG HCO3 ABG Base Excess ABG Hemoglobin Oxyhemoglobin Sodium Potassium Chloride Carbon Dioxide BUN Creatinine Glucose POC Glucose 114 H 127 H Lactic Acid Calcium Ionized Calcium Phosphorus Magnesium Direct Bilirubin AST ALT Alkaline Phosphatase Lactate Dehydrogenase Troponin T C-Reactive Protein Total Protein Albumin Prealbumin Triglycerides Cholesterol LDL Cholesterol Direct HDL Cholesterol 25-OH Vitamin D Total PTH Intact Urine pH Urine WBC (Auto) Urine Creatinine Urine Total Protein Fluid Total Protein Vancomycin Trough Rheumatoid Factor Complement C4 Miscellaneous Test Crossmatch 09/27/16 09/27/16 09/28/16 Unknown Unknown 03:45 WBC RBC 2.49 L Hgb 6.8 L Hct 20.7 L MCV MCH 27 L MCHC RDW 22.1 H Plt Count Lymph % (Auto) [place] % (Auto) Lymph # [place] # Baso # Seg Neutrophils % Seg Neuts % (Manual) 32.0 L Lymphocytes % (Manual) 12.0 L Monocytes % (Manual) 11.0 H Eosinophils % (Manual) 10.0 H Basophils % (Manual) Nucleated RBC % Seg Neutrophils # Seg Neutrophils # Man Lymphocytes # (Manual) 1.0 L Monocytes # (Manual) 0.9 H Eosinophils # (Manual) 0.8 H Basophils # (Manual) PT INR Fibrinogen dRVVT Confirm Interp Factor V Activity POC ABG pH POC ABG pCO2 POC ABG pO2 ABG pO2 ABG HCO3 ABG Base Excess ABG Hemoglobin Oxyhemoglobin Sodium 135 L 135 L Potassium 3.5 L Chloride 93.6 L 94.4 L Carbon Dioxide 17 L 21 L BUN 45 H 28 H Creatinine 3.3 H 2.5 H Glucose 106 H POC Glucose Lactic Acid Calcium 7.3 L 7.1 L Ionized Calcium Phosphorus Magnesium Direct Bilirubin AST ALT Alkaline Phosphatase Lactate Dehydrogenase Troponin T C-Reactive Protein Total Protein Albumin Prealbumin Triglycerides Cholesterol LDL Cholesterol Direct HDL Cholesterol 25-OH Vitamin D Total PTH Intact Urine pH Urine WBC (Auto) Urine Creatinine Urine Total Protein Fluid Total Protein Vancomycin Trough Rheumatoid Factor Complement C4 Miscellaneous Test Crossmatch 09/28/16 09/28/16 09/28/16 03:45 07:25 11:58 WBC 13.3 H RBC 3.01 L Hgb 8.4 L Hct 25.0 L MCV MCH MCHC RDW 20.5 H Plt Count 128 L Lymph % (Auto) [place] % (Auto) Lymph # [place] # Baso # Seg Neutrophils % Seg Neuts % (Manual) Lymphocytes % (Manual) 7.0 L Monocytes % (Manual) Eosinophils % (Manual) 6.0 H Basophils % (Manual) Nucleated RBC % Seg Neutrophils # Seg Neutrophils # Man Lymphocytes # (Manual) 0.9 L Monocytes # (Manual) Eosinophils # (Manual) 0.8 H Basophils # (Manual) PT INR Fibrinogen dRVVT Confirm Interp Factor V Activity POC ABG pH POC ABG pCO2 POC ABG pO2 ABG pO2 ABG HCO3 ABG Base Excess ABG Hemoglobin Oxyhemoglobin Sodium Potassium Chloride Carbon Dioxide BUN Creatinine Glucose POC Glucose 121 H Lactic Acid 4.50 H* Calcium Ionized Calcium Phosphorus Magnesium Direct Bilirubin AST ALT Alkaline Phosphatase Lactate Dehydrogenase Troponin T C-Reactive Protein Total Protein Albumin Prealbumin Triglycerides Cholesterol LDL Cholesterol Direct HDL Cholesterol 25-OH Vitamin D Total PTH Intact Urine pH Urine WBC (Auto) Urine Creatinine Urine Total Protein Fluid Total Protein Vancomycin Trough Rheumatoid Factor Complement C4 Miscellaneous Test Crossmatch 09/29/16 09/29/16 09/29/16 06:45 06:45 06:45 WBC 14.9 H RBC 2.74 L Hgb 7.6 L Hct 23.2 L MCV MCH MCHC RDW 20.5 H Plt Count 81 L Lymph % (Auto) [place] % (Auto) Lymph # [place] # Baso # Seg Neutrophils % Seg Neuts % (Manual) 81.0 H Lymphocytes % (Manual) 4.0 L Monocytes % (Manual) Eosinophils % (Manual) Basophils % (Manual) Nucleated RBC % Seg Neutrophils # Seg Neutrophils # Man 12.1 H Lymphocytes # (Manual) 0.6 L Monocytes # (Manual) Eosinophils # (Manual) Basophils # (Manual) PT INR Fibrinogen dRVVT Confirm Interp Factor V Activity POC ABG pH POC ABG pCO2 POC ABG pO2 ABG pO2 ABG HCO3 ABG Base Excess ABG Hemoglobin Oxyhemoglobin Sodium 133 L Potassium 3.4 L Chloride 92.5 L Carbon Dioxide 21 L BUN 33 H Creatinine 3.0 H Glucose POC Glucose Lactic Acid Calcium 6.6 L Ionized Calcium Phosphorus Magnesium 1.40 L Direct Bilirubin 0.9 H AST ALT Alkaline Phosphatase Lactate Dehydrogenase Troponin T C-Reactive Protein Total Protein 4.3 L Albumin 1.3 L Prealbumin Triglycerides Cholesterol LDL Cholesterol Direct HDL Cholesterol 25-OH Vitamin D Total PTH Intact Urine pH Urine WBC (Auto) Urine Creatinine Urine Total Protein Fluid Total Protein Vancomycin Trough Rheumatoid Factor Complement C4 Miscellaneous Test Crossmatch 09/29/16 09/29/16 09/30/16 17:52 20:12 00:07 WBC RBC Hgb Hct MCV MCH MCHC RDW Plt Count Lymph % (Auto) [place] % (Auto) Lymph # [place] # Baso # Seg Neutrophils % Seg Neuts % (Manual) Lymphocytes % (Manual) Monocytes % (Manual) Eosinophils % (Manual) Basophils % (Manual) Nucleated RBC % Seg Neutrophils # Seg Neutrophils # Man Lymphocytes # (Manual) Monocytes # (Manual) Eosinophils # (Manual) Basophils # (Manual) PT INR Fibrinogen dRVVT Confirm Interp Factor V Activity POC ABG pH POC ABG pCO2 POC ABG pO2 ABG pO2 ABG HCO3 ABG Base Excess ABG Hemoglobin Oxyhemoglobin Sodium Potassium Chloride Carbon Dioxide BUN Creatinine Glucose POC Glucose 50 L 51 L Lactic Acid Calcium Ionized Calcium Phosphorus Magnesium Direct Bilirubin AST ALT Alkaline Phosphatase Lactate Dehydrogenase Troponin T 0.204 H* C-Reactive Protein Total Protein Albumin Prealbumin Triglycerides Cholesterol 31 L LDL Cholesterol Direct 4 L HDL Cholesterol 3 L 25-OH Vitamin D Total PTH Intact Urine pH Urine WBC (Auto) Urine Creatinine Urine Total Protein Fluid Total Protein Vancomycin Trough Rheumatoid Factor Complement C4 Miscellaneous Test Crossmatch 09/30/16 09/30/16 09/30/16 01:30 05:15 06:10 WBC RBC Hgb Hct MCV MCH MCHC RDW Plt Count Lymph % (Auto) [place] % (Auto) Lymph # [place] # Baso # Seg Neutrophils % Seg Neuts % (Manual) Lymphocytes % (Manual) Monocytes % (Manual) Eosinophils % (Manual) Basophils % (Manual) Nucleated RBC % Seg Neutrophils # Seg Neutrophils # Man Lymphocytes # (Manual) Monocytes # (Manual) Eosinophils # (Manual) Basophils # (Manual) PT INR Fibrinogen dRVVT Confirm Interp Factor V Activity POC ABG pH POC ABG pCO2 POC ABG pO2 ABG pO2 ABG HCO3 ABG Base Excess ABG Hemoglobin Oxyhemoglobin Sodium 133 L Potassium 3.2 L Chloride 93.2 L Carbon Dioxide 19 L BUN 36 H Creatinine 3.2 H Glucose 104 H POC Glucose 167 H 146 H Lactic Acid Calcium 6.4 L Ionized Calcium Phosphorus Magnesium 1.60 L Direct Bilirubin AST ALT Alkaline Phosphatase Lactate Dehydrogenase Troponin T C-Reactive Protein Total Protein Albumin Prealbumin Triglycerides Cholesterol LDL Cholesterol Direct HDL Cholesterol 25-OH Vitamin D Total PTH Intact Urine pH Urine WBC (Auto) Urine Creatinine Urine Total Protein Fluid Total Protein Vancomycin Trough Rheumatoid Factor Complement C4 Miscellaneous Test Crossmatch 09/30/16 09/30/16 09/30/16 11:26 13:39 18:38 WBC RBC Hgb Hct MCV MCH MCHC RDW Plt Count Lymph % (Auto) [place] % (Auto) Lymph # [place] # Baso # Seg Neutrophils % Seg Neuts % (Manual) Lymphocytes % (Manual) Monocytes % (Manual) Eosinophils % (Manual) Basophils % (Manual) Nucleated RBC % Seg Neutrophils # Seg Neutrophils # Man Lymphocytes # (Manual) Monocytes # (Manual) Eosinophils # (Manual) Basophils # (Manual) PT INR Fibrinogen dRVVT Confirm Interp Factor V Activity POC ABG pH 7.479 H POC ABG pCO2 29.8 L POC ABG pO2 117 H ABG pO2 ABG HCO3 ABG Base Excess ABG Hemoglobin Oxyhemoglobin Sodium Potassium Chloride Carbon Dioxide BUN Creatinine Glucose POC Glucose 140 H 122 H Lactic Acid Calcium Ionized Calcium Phosphorus Magnesium Direct Bilirubin AST ALT Alkaline Phosphatase Lactate Dehydrogenase Troponin T C-Reactive Protein Total Protein Albumin Prealbumin Triglycerides Cholesterol LDL Cholesterol Direct HDL Cholesterol 25-OH Vitamin D Total PTH Intact Urine pH Urine WBC (Auto) Urine Creatinine Urine Total Protein Fluid Total Protein Vancomycin Trough Rheumatoid Factor Complement C4 Miscellaneous Test Crossmatch 10/01/16 10/01/16 10/01/16 06:00 06:00 12:37 WBC 12.6 H RBC 2.75 L Hgb 7.3 L Hct 23.3 L MCV MCH 27 L MCHC RDW 20.6 H Plt Count 72 L Lymph % (Auto) [place] % (Auto) Lymph # [place] # Baso # Seg Neutrophils % Seg Neuts % (Manual) 31.0 L Lymphocytes % (Manual) 8.0 L Monocytes % (Manual) Eosinophils % (Manual) Basophils % (Manual) Nucleated RBC % 3.0 H Seg Neutrophils # Seg Neutrophils # Man Lymphocytes # (Manual) 1.0 L Monocytes # (Manual) Eosinophils # (Manual) Basophils # (Manual) PT INR Fibrinogen dRVVT Confirm Interp Factor V Activity POC ABG pH POC ABG pCO2 POC ABG pO2 ABG pO2 ABG HCO3 ABG Base Excess ABG Hemoglobin Oxyhemoglobin Sodium 127 L Potassium Chloride 86.8 L Carbon Dioxide 20 L BUN 42 H Creatinine 3.5 H Glucose POC Glucose 65 L Lactic Acid Calcium 7.0 L Ionized Calcium Phosphorus Magnesium Direct Bilirubin AST ALT Alkaline Phosphatase Lactate Dehydrogenase Troponin T C-Reactive Protein Total Protein Albumin Prealbumin Triglycerides Cholesterol LDL Cholesterol Direct HDL Cholesterol 25-OH Vitamin D Total PTH Intact Urine pH Urine WBC (Auto) Urine Creatinine Urine Total Protein Fluid Total Protein Vancomycin Trough Rheumatoid Factor Complement C4 Miscellaneous Test Crossmatch 10/01/16 10/01/16 10/02/16 17:39 23:32 00:59 WBC RBC Hgb Hct MCV MCH MCHC RDW Plt Count Lymph % (Auto) [place] % (Auto) Lymph # [place] # Baso # Seg Neutrophils % Seg Neuts % (Manual) Lymphocytes % (Manual) Monocytes % (Manual) Eosinophils % (Manual) Basophils % (Manual) Nucleated RBC % Seg Neutrophils # Seg Neutrophils # Man Lymphocytes # (Manual) Monocytes # (Manual) Eosinophils # (Manual) Basophils # (Manual) PT INR Fibrinogen dRVVT Confirm Interp Factor V Activity POC ABG pH POC ABG pCO2 POC ABG pO2 ABG pO2 ABG HCO3 ABG Base Excess ABG Hemoglobin Oxyhemoglobin Sodium Potassium Chloride Carbon Dioxide BUN Creatinine Glucose POC Glucose 107 H 52 L 145 H Lactic Acid Calcium Ionized Calcium Phosphorus Magnesium Direct Bilirubin AST ALT Alkaline Phosphatase Lactate Dehydrogenase Troponin T C-Reactive Protein Total Protein Albumin Prealbumin Triglycerides Cholesterol LDL Cholesterol Direct HDL Cholesterol 25-OH Vitamin D Total PTH Intact Urine pH Urine WBC (Auto) Urine Creatinine Urine Total Protein Fluid Total Protein Vancomycin Trough Rheumatoid Factor Complement C4 Miscellaneous Test Crossmatch 10/02/16 10/02/16 10/02/16 10:30 10:50 10:50 WBC 14.7 H RBC 2.76 L Hgb 7.4 L Hct 23.6 L MCV MCH 27 L MCHC RDW 20.2 H Plt Count 79 L Lymph % (Auto) [place] % (Auto) Lymph # [place] # Baso # Seg Neutrophils % Seg Neuts % (Manual) 86.0 H Lymphocytes % (Manual) 6.0 L Monocytes % (Manual) Eosinophils % (Manual) Basophils % (Manual) Nucleated RBC % Seg Neutrophils # Seg Neutrophils # Man 12.6 H Lymphocytes # (Manual) 0.9 L Monocytes # (Manual) Eosinophils # (Manual) Basophils # (Manual) PT INR Fibrinogen dRVVT Confirm Interp Factor V Activity POC ABG pH 7.486 H POC ABG pCO2 30.1 L POC ABG pO2 108 H ABG pO2 ABG HCO3 ABG Base Excess ABG Hemoglobin Oxyhemoglobin Sodium 131 L Potassium 3.4 L Chloride 89.9 L Carbon Dioxide BUN 26 H Creatinine 2.6 H Glucose POC Glucose Lactic Acid Calcium 7.0 L Ionized Calcium Phosphorus Magnesium Direct Bilirubin AST ALT Alkaline Phosphatase Lactate Dehydrogenase Troponin T C-Reactive Protein Total Protein Albumin Prealbumin Triglycerides Cholesterol LDL Cholesterol Direct HDL Cholesterol 25-OH Vitamin D Total PTH Intact Urine pH Urine WBC (Auto) Urine Creatinine Urine Total Protein Fluid Total Protein Vancomycin Trough Rheumatoid Factor Complement C4 Miscellaneous Test Crossmatch 10/02/16 10/03/16 10/03/16 23:45 00:45 05:10 WBC 12.9 H RBC 2.77 L Hgb 7.6 L Hct 23.7 L MCV MCH 27 L MCHC RDW 19.7 H Plt Count 89 L Lymph % (Auto) [place] % (Auto) Lymph # [place] # Baso # Seg Neutrophils % Seg Neuts % (Manual) Lymphocytes % (Manual) 8.0 L Monocytes % (Manual) Eosinophils % (Manual) Basophils % (Manual) Nucleated RBC % Seg Neutrophils # 11.9 H Seg Neutrophils # Man Lymphocytes # (Manual) 1.0 L Monocytes # (Manual) Eosinophils # (Manual) Basophils # (Manual) PT INR Fibrinogen dRVVT Confirm Interp Factor V Activity POC ABG pH POC ABG pCO2 POC ABG pO2 ABG pO2 ABG HCO3 ABG Base Excess ABG Hemoglobin Oxyhemoglobin Sodium Potassium Chloride Carbon Dioxide BUN Creatinine Glucose POC Glucose 55 L 199 H Lactic Acid Calcium Ionized Calcium Phosphorus Magnesium Direct Bilirubin AST ALT Alkaline Phosphatase Lactate Dehydrogenase Troponin T C-Reactive Protein Total Protein Albumin Prealbumin Triglycerides Cholesterol LDL Cholesterol Direct HDL Cholesterol 25-OH Vitamin D Total PTH Intact Urine pH Urine WBC (Auto) Urine Creatinine Urine Total Protein Fluid Total Protein Vancomycin Trough Rheumatoid Factor Complement C4 Miscellaneous Test Crossmatch 10/03/16 10/03/16 10/03/16 05:10 12:14 13:18 WBC RBC Hgb Hct MCV MCH MCHC RDW Plt Count Lymph % (Auto) [place] % (Auto) Lymph # [place] # Baso # Seg Neutrophils % Seg Neuts % (Manual) Lymphocytes % (Manual) Monocytes % (Manual) Eosinophils % (Manual) Basophils % (Manual) Nucleated RBC % Seg Neutrophils # Seg Neutrophils # Man Lymphocytes # (Manual) Monocytes # (Manual) Eosinophils # (Manual) Basophils # (Manual) PT INR Fibrinogen dRVVT Confirm Interp Factor V Activity POC ABG pH POC ABG pCO2 POC ABG pO2 ABG pO2 ABG HCO3 ABG Base Excess ABG Hemoglobin Oxyhemoglobin Sodium 129 L Potassium 3.3 L Chloride 88.8 L Carbon Dioxide 20 L BUN 29 H Creatinine 2.8 H Glucose POC Glucose 68 L 127 H Lactic Acid Calcium 7.2 L Ionized Calcium Phosphorus Magnesium Direct Bilirubin AST ALT Alkaline Phosphatase Lactate Dehydrogenase Troponin T C-Reactive Protein Total Protein Albumin Prealbumin Triglycerides Cholesterol LDL Cholesterol Direct HDL Cholesterol 25-OH Vitamin D Total PTH Intact Urine pH Urine WBC (Auto) Urine Creatinine Urine Total Protein Fluid Total Protein Vancomycin Trough Rheumatoid Factor Complement C4 Miscellaneous Test Crossmatch 10/03/16 10/03/16 10/03/16 14:42 18:21 19:09 WBC RBC Hgb Hct MCV MCH MCHC RDW Plt Count Lymph % (Auto) [place] % (Auto) Lymph # [place] # Baso # Seg Neutrophils % Seg Neuts % (Manual) Lymphocytes % (Manual) Monocytes % (Manual) Eosinophils % (Manual) Basophils % (Manual) Nucleated RBC % Seg Neutrophils # Seg Neutrophils # Man Lymphocytes # (Manual) Monocytes # (Manual) Eosinophils # (Manual) Basophils # (Manual) PT INR Fibrinogen dRVVT Confirm Interp Factor V Activity POC ABG pH 7.499 H POC ABG pCO2 28.4 L POC ABG pO2 44 L ABG pO2 ABG HCO3 ABG Base Excess ABG Hemoglobin Oxyhemoglobin Sodium Potassium Chloride Carbon Dioxide BUN Creatinine Glucose POC Glucose 64 L 205 H Lactic Acid Calcium Ionized Calcium Phosphorus Magnesium Direct Bilirubin AST ALT Alkaline Phosphatase Lactate Dehydrogenase Troponin T C-Reactive Protein Total Protein Albumin Prealbumin Triglycerides Cholesterol LDL Cholesterol Direct HDL Cholesterol 25-OH Vitamin D Total PTH Intact Urine pH Urine WBC (Auto) Urine Creatinine Urine Total Protein Fluid Total Protein Vancomycin Trough Rheumatoid Factor Complement C4 Miscellaneous Test Crossmatch 10/03/16 10/04/16 10/04/16 23:33 04:18 06:30 WBC RBC 2.54 L Hgb 7.1 L Hct 21.7 L MCV MCH MCHC RDW 19.5 H Plt Count 76 L Lymph % (Auto) [place] % (Auto) Lymph # [place] # Baso # Seg Neutrophils % Seg Neuts % (Manual) 88.0 H Lymphocytes % (Manual) 6.0 L Monocytes % (Manual) Eosinophils % (Manual) Basophils % (Manual) Nucleated RBC % Seg Neutrophils # Seg Neutrophils # Man 8.8 H Lymphocytes # (Manual) 0.6 L Monocytes # (Manual) Eosinophils # (Manual) Basophils # (Manual) PT INR Fibrinogen dRVVT Confirm Interp Factor V Activity POC ABG pH 7.461 H POC ABG pCO2 33.6 L POC ABG pO2 211 H ABG pO2 ABG HCO3 ABG Base Excess ABG Hemoglobin Oxyhemoglobin Sodium Potassium Chloride Carbon Dioxide BUN Creatinine Glucose POC Glucose 136 H Lactic Acid Calcium Ionized Calcium Phosphorus Magnesium Direct Bilirubin AST ALT Alkaline Phosphatase Lactate Dehydrogenase Troponin T C-Reactive Protein Total Protein Albumin Prealbumin Triglycerides Cholesterol LDL Cholesterol Direct HDL Cholesterol 25-OH Vitamin D Total PTH Intact Urine pH Urine WBC (Auto) Urine Creatinine Urine Total Protein Fluid Total Protein Vancomycin Trough Rheumatoid Factor Complement C4 Miscellaneous Test Crossmatch 10/04/16 10/04/16 10/04/16 06:30 11:45 17:54 WBC RBC Hgb Hct MCV MCH MCHC RDW Plt Count Lymph % (Auto) [place] % (Auto) Lymph # [place] # Baso # Seg Neutrophils % Seg Neuts % (Manual) Lymphocytes % (Manual) Monocytes % (Manual) Eosinophils % (Manual) Basophils % (Manual) Nucleated RBC % Seg Neutrophils # Seg Neutrophils # Man Lymphocytes # (Manual) Monocytes # (Manual) Eosinophils # (Manual) Basophils # (Manual) PT INR Fibrinogen dRVVT Confirm Interp Factor V Activity POC ABG pH POC ABG pCO2 POC ABG pO2 ABG pO2 ABG HCO3 ABG Base Excess ABG Hemoglobin Oxyhemoglobin Sodium 128 L Potassium Chloride 87.4 L Carbon Dioxide 20 L BUN 34 H Creatinine 2.9 H Glucose 127 H POC Glucose 158 H 160 H Lactic Acid Calcium 7.4 L Ionized Calcium Phosphorus Magnesium Direct Bilirubin AST ALT Alkaline Phosphatase Lactate Dehydrogenase Troponin T C-Reactive Protein Total Protein Albumin Prealbumin Triglycerides Cholesterol LDL Cholesterol Direct HDL Cholesterol 25-OH Vitamin D Total PTH Intact Urine pH Urine WBC (Auto) Urine Creatinine Urine Total Protein Fluid Total Protein Vancomycin Trough Rheumatoid Factor Complement C4 Miscellaneous Test Crossmatch 10/04/16 10/05/16 10/05/16 23:25 04:30 05:00 WBC RBC 2.64 L Hgb 7.5 L Hct 22.6 L MCV MCH MCHC RDW 19.3 H Plt Count 80 L Lymph % (Auto) [place] % (Auto) Lymph # [place] # Baso # Seg Neutrophils % Seg Neuts % (Manual) Lymphocytes % (Manual) 12.0 L Monocytes % (Manual) Eosinophils % (Manual) Basophils % (Manual) Nucleated RBC % Seg Neutrophils # Seg Neutrophils # Man Lymphocytes # (Manual) Monocytes # (Manual) Eosinophils # (Manual) Basophils # (Manual) PT INR Fibrinogen dRVVT Confirm Interp Factor V Activity POC ABG pH 7.475 H POC ABG pCO2 33.3 L POC ABG pO2 140 H ABG pO2 ABG HCO3 ABG Base Excess ABG Hemoglobin Oxyhemoglobin Sodium Potassium Chloride Carbon Dioxide BUN Creatinine Glucose POC Glucose 141 H Lactic Acid Calcium Ionized Calcium Phosphorus Magnesium Direct Bilirubin AST ALT Alkaline Phosphatase Lactate Dehydrogenase Troponin T C-Reactive Protein Total Protein Albumin Prealbumin Triglycerides Cholesterol LDL Cholesterol Direct HDL Cholesterol 25-OH Vitamin D Total PTH Intact Urine pH Urine WBC (Auto) Urine Creatinine Urine Total Protein Fluid Total Protein Vancomycin Trough Rheumatoid Factor Complement C4 Miscellaneous Test Crossmatch 10/05/16 10/05/16 10/05/16 05:00 05:09 12:58 WBC RBC Hgb Hct MCV MCH MCHC RDW Plt Count Lymph % (Auto) [place] % (Auto) Lymph # [place] # Baso # Seg Neutrophils % Seg Neuts % (Manual) Lymphocytes % (Manual) Monocytes % (Manual) Eosinophils % (Manual) Basophils % (Manual) Nucleated RBC % Seg Neutrophils # Seg Neutrophils # Man Lymphocytes # (Manual) Monocytes # (Manual) Eosinophils # (Manual) Basophils # (Manual) PT INR Fibrinogen dRVVT Confirm Interp Factor V Activity POC ABG pH POC ABG pCO2 POC ABG pO2 ABG pO2 ABG HCO3 ABG Base Excess ABG Hemoglobin Oxyhemoglobin Sodium 131 L Potassium Chloride 94.0 L Carbon Dioxide 20 L BUN 22 H Creatinine 2.0 H Glucose 123 H POC Glucose 166 H 179 H Lactic Acid Calcium 7.7 L Ionized Calcium Phosphorus 2.20 L D Magnesium Direct Bilirubin AST ALT Alkaline Phosphatase Lactate Dehydrogenase Troponin T C-Reactive Protein Total Protein Albumin Prealbumin Triglycerides Cholesterol LDL Cholesterol Direct HDL Cholesterol 25-OH Vitamin D Total PTH Intact Urine pH Urine WBC (Auto) Urine Creatinine Urine Total Protein Fluid Total Protein Vancomycin Trough Rheumatoid Factor Complement C4 Miscellaneous Test Crossmatch 10/05/16 10/05/16 10/05/16 15:50 18:53 23:12 WBC RBC Hgb Hct MCV MCH MCHC RDW Plt Count Lymph % (Auto) [place] % (Auto) Lymph # [place] # Baso # Seg Neutrophils % Seg Neuts % (Manual) Lymphocytes % (Manual) Monocytes % (Manual) Eosinophils % (Manual) Basophils % (Manual) Nucleated RBC % Seg Neutrophils # Seg Neutrophils # Man Lymphocytes # (Manual) Monocytes # (Manual) Eosinophils # (Manual) Basophils # (Manual) PT INR Fibrinogen dRVVT Confirm Interp Factor V Activity POC ABG pH POC ABG pCO2 POC ABG pO2 ABG pO2 ABG HCO3 ABG Base Excess ABG Hemoglobin Oxyhemoglobin Sodium Potassium Chloride Carbon Dioxide BUN Creatinine Glucose POC Glucose 150 H 164 H Lactic Acid Calcium Ionized Calcium Phosphorus Magnesium Direct Bilirubin AST ALT Alkaline Phosphatase Lactate Dehydrogenase Troponin T C-Reactive Protein Total Protein Albumin Prealbumin Triglycerides Cholesterol LDL Cholesterol Direct HDL Cholesterol 25-OH Vitamin D Total PTH Intact Urine pH Urine WBC (Auto) Urine Creatinine Urine Total Protein Fluid Total Protein Vancomycin Trough Rheumatoid Factor Complement C4 Miscellaneous Test Crossmatch See Detail 10/06/16 10/06/16 10/06/16 03:50 03:50 04:53 WBC RBC 3.00 L Hgb 8.6 L Hct 25.8 L MCV MCH MCHC RDW 17.9 H Plt Count 65 L Lymph % (Auto) [place] % (Auto) Lymph # [place] # Baso # Seg Neutrophils % Seg Neuts % (Manual) 30.0 L Lymphocytes % (Manual) 5.0 L Monocytes % (Manual) Eosinophils % (Manual) Basophils % (Manual) Nucleated RBC % Seg Neutrophils # Seg Neutrophils # Man Lymphocytes # (Manual) 0.4 L Monocytes # (Manual) Eosinophils # (Manual) Basophils # (Manual) PT INR Fibrinogen dRVVT Confirm Interp Factor V Activity POC ABG pH 7.310 L POC ABG pCO2 49.0 H POC ABG pO2 ABG pO2 ABG HCO3 ABG Base Excess ABG Hemoglobin Oxyhemoglobin Sodium 133 L Potassium Chloride 95.9 L Carbon Dioxide BUN 26 H Creatinine 2.0 H Glucose 116 H POC Glucose Lactic Acid Calcium 7.8 L Ionized Calcium Phosphorus Magnesium Direct Bilirubin AST ALT Alkaline Phosphatase Lactate Dehydrogenase Troponin T C-Reactive Protein Total Protein Albumin Prealbumin Triglycerides Cholesterol LDL Cholesterol Direct HDL Cholesterol 25-OH Vitamin D Total PTH Intact Urine pH Urine WBC (Auto) Urine Creatinine Urine Total Protein Fluid Total Protein Vancomycin Trough Rheumatoid Factor Complement C4 Miscellaneous Test Crossmatch 10/06/16 10/06/16 10/06/16 05:23 11:52 18:34 WBC RBC Hgb Hct MCV MCH MCHC RDW Plt Count Lymph % (Auto) [place] % (Auto) Lymph # [place] # Baso # Seg Neutrophils % Seg Neuts % (Manual) Lymphocytes % (Manual) Monocytes % (Manual) Eosinophils % (Manual) Basophils % (Manual) Nucleated RBC % Seg Neutrophils # Seg Neutrophils # Man Lymphocytes # (Manual) Monocytes # (Manual) Eosinophils # (Manual) Basophils # (Manual) PT INR Fibrinogen dRVVT Confirm Interp Factor V Activity POC ABG pH POC ABG pCO2 POC ABG pO2 ABG pO2 ABG HCO3 ABG Base Excess ABG Hemoglobin Oxyhemoglobin Sodium Potassium Chloride Carbon Dioxide BUN Creatinine Glucose POC Glucose 126 H 116 H 129 H Lactic Acid Calcium Ionized Calcium Phosphorus Magnesium Direct Bilirubin AST ALT Alkaline Phosphatase Lactate Dehydrogenase Troponin T C-Reactive Protein Total Protein Albumin Prealbumin Triglycerides Cholesterol LDL Cholesterol Direct HDL Cholesterol 25-OH Vitamin D Total PTH Intact Urine pH Urine WBC (Auto) Urine Creatinine Urine Total Protein Fluid Total Protein Vancomycin Trough Rheumatoid Factor Complement C4 Miscellaneous Test Crossmatch 10/07/16 10/07/16 10/07/16 03:45 05:00 10:00 WBC 17.0 H RBC 2.68 L Hgb 7.3 L Hct 25.3 L MCV MCH 27 L MCHC 29 L RDW 19.6 H Plt Count 74 L Lymph % (Auto) [place] % (Auto) Lymph # [place] # Baso # Seg Neutrophils % Seg Neuts % (Manual) Lymphocytes % (Manual) 12.0 L Monocytes % (Manual) Eosinophils % (Manual) Basophils % (Manual) Nucleated RBC % 4.0 H Seg Neutrophils # Seg Neutrophils # Man 10.7 H Lymphocytes # (Manual) Monocytes # (Manual) Eosinophils # (Manual) Basophils # (Manual) PT INR Fibrinogen dRVVT Confirm Interp Factor V Activity POC ABG pH POC ABG pCO2 POC ABG pO2 ABG pO2 ABG HCO3 ABG Base Excess ABG Hemoglobin Oxyhemoglobin Sodium 130 L Potassium 3.2 L Chloride 93.9 L Carbon Dioxide 20 L BUN 44 H Creatinine 2.7 H Glucose 129 H POC Glucose Lactic Acid Calcium 7.4 L Ionized Calcium Phosphorus Magnesium Direct Bilirubin AST ALT 6 L Alkaline Phosphatase 195 H Lactate Dehydrogenase Troponin T C-Reactive Protein Total Protein 4.9 L Albumin 1.0 L Prealbumin Triglycerides Cholesterol LDL Cholesterol Direct HDL Cholesterol 25-OH Vitamin D Total PTH Intact Urine pH Urine WBC (Auto) Urine Creatinine Urine Total Protein Fluid Total Protein Vancomycin Trough Rheumatoid Factor Complement C4 Miscellaneous Test Flexitest 1 H Crossmatch 10/07/16 10/07/16 10/07/16 10:00 11:24 18:10 WBC RBC Hgb Hct MCV MCH MCHC RDW Plt Count Lymph % (Auto) [place] % (Auto) Lymph # [place] # Baso # Seg Neutrophils % Seg Neuts % (Manual) Lymphocytes % (Manual) Monocytes % (Manual) Eosinophils % (Manual) Basophils % (Manual) Nucleated RBC % Seg Neutrophils # Seg Neutrophils # Man Lymphocytes # (Manual) Monocytes # (Manual) Eosinophils # (Manual) Basophils # (Manual) PT INR Fibrinogen dRVVT Confirm Interp Factor V Activity POC ABG pH POC ABG pCO2 POC ABG pO2 ABG pO2 ABG HCO3 ABG Base Excess ABG Hemoglobin Oxyhemoglobin Sodium Potassium Chloride Carbon Dioxide BUN Creatinine Glucose POC Glucose 116 H 130 H Lactic Acid Calcium Ionized Calcium Phosphorus Magnesium Direct Bilirubin AST ALT Alkaline Phosphatase Lactate Dehydrogenase Troponin T C-Reactive Protein 19.40 H Total Protein Albumin Prealbumin Triglycerides Cholesterol LDL Cholesterol Direct HDL Cholesterol 25-OH Vitamin D Total PTH Intact Urine pH Urine WBC (Auto) Urine Creatinine Urine Total Protein Fluid Total Protein Vancomycin Trough Rheumatoid Factor Complement C4 Miscellaneous Test Crossmatch 10/07/16 10/08/16 10/08/16 18:30 00:00 04:00 WBC RBC Hgb Hct MCV MCH MCHC RDW Plt Count Lymph % (Auto) [place] % (Auto) Lymph # [place] # Baso # Seg Neutrophils % Seg Neuts % (Manual) Lymphocytes % (Manual) Monocytes % (Manual) Eosinophils % (Manual) Basophils % (Manual) Nucleated RBC % Seg Neutrophils # Seg Neutrophils # Man Lymphocytes # (Manual) Monocytes # (Manual) Eosinophils # (Manual) Basophils # (Manual) PT INR Fibrinogen dRVVT Confirm Interp Factor V Activity POC ABG pH POC ABG pCO2 POC ABG pO2 ABG pO2 ABG HCO3 ABG Base Excess ABG Hemoglobin Oxyhemoglobin Sodium 132 L Potassium 3.3 L Chloride 93.6 L Carbon Dioxide 17 L BUN 59 H Creatinine 2.7 H Glucose 121 H POC Glucose 122 H Lactic Acid Calcium 7.6 L Ionized Calcium Phosphorus Magnesium Direct Bilirubin AST ALT Alkaline Phosphatase Lactate Dehydrogenase Troponin T C-Reactive Protein Total Protein Albumin Prealbumin Triglycerides Cholesterol LDL Cholesterol Direct HDL Cholesterol 25-OH Vitamin D Total PTH Intact Urine pH Urine WBC (Auto) > 182.0 H Urine Creatinine Urine Total Protein Fluid Total Protein Vancomycin Trough Rheumatoid Factor Complement C4 Miscellaneous Test Crossmatch 10/08/16 10/08/16 10/08/16 04:30 05:30 11:51 WBC RBC 5.15 H Hgb 14.4 H D Hct 44.5 H D MCV MCH MCHC RDW 19.5 H Plt Count 56 L Lymph % (Auto) [place] % (Auto) Lymph # [place] # Baso # Seg Neutrophils % Seg Neuts % (Manual) 24.0 L Lymphocytes % (Manual) 8.0 L Monocytes % (Manual) Eosinophils % (Manual) Basophils % (Manual) Nucleated RBC % 9.0 H Seg Neutrophils # Seg Neutrophils # Man Lymphocytes # (Manual) 0.7 L Monocytes # (Manual) Eosinophils # (Manual) Basophils # (Manual) PT INR Fibrinogen dRVVT Confirm Interp Factor V Activity POC ABG pH POC ABG pCO2 POC ABG pO2 ABG pO2 ABG HCO3 ABG Base Excess ABG Hemoglobin Oxyhemoglobin Sodium Potassium Chloride Carbon Dioxide BUN Creatinine Glucose POC Glucose 125 H 150 H Lactic Acid Calcium Ionized Calcium Phosphorus Magnesium Direct Bilirubin AST ALT Alkaline Phosphatase Lactate Dehydrogenase Troponin T C-Reactive Protein Total Protein Albumin Prealbumin Triglycerides Cholesterol LDL Cholesterol Direct HDL Cholesterol 25-OH Vitamin D Total PTH Intact Urine pH Urine WBC (Auto) Urine Creatinine Urine Total Protein Fluid Total Protein Vancomycin Trough Rheumatoid Factor Complement C4 Miscellaneous Test Crossmatch 10/08/16 10/08/16 10/08/16 12:49 17:07 19:30 WBC RBC Hgb 7.1 L D Hct 22.4 L D MCV MCH MCHC RDW Plt Count Lymph % (Auto) [place] % (Auto) Lymph # [place] # Baso # Seg Neutrophils % Seg Neuts % (Manual) Lymphocytes % (Manual) Monocytes % (Manual) Eosinophils % (Manual) Basophils % (Manual) Nucleated RBC % Seg Neutrophils # Seg Neutrophils # Man Lymphocytes # (Manual) Monocytes # (Manual) Eosinophils # (Manual) Basophils # (Manual) PT INR Fibrinogen dRVVT Confirm Interp Factor V Activity POC ABG pH POC ABG pCO2 28.2 L POC ABG pO2 111 H ABG pO2 ABG HCO3 ABG Base Excess ABG Hemoglobin Oxyhemoglobin Sodium Potassium Chloride Carbon Dioxide BUN Creatinine Glucose POC Glucose 145 H Lactic Acid Calcium Ionized Calcium Phosphorus Magnesium Direct Bilirubin AST ALT Alkaline Phosphatase Lactate Dehydrogenase Troponin T C-Reactive Protein Total Protein Albumin Prealbumin Triglycerides Cholesterol LDL Cholesterol Direct HDL Cholesterol 25-OH Vitamin D Total PTH Intact Urine pH Urine WBC (Auto) Urine Creatinine Urine Total Protein Fluid Total Protein Vancomycin Trough Rheumatoid Factor Complement C4 Miscellaneous Test Crossmatch 10/08/16 10/09/16 10/09/16 19:30 03:45 03:45 WBC 12.6 H RBC 2.36 L Hgb 6.7 L Hct 21.1 L MCV MCH MCHC RDW 19.5 H Plt Count 75 L Lymph % (Auto) [place] % (Auto) Lymph # [place] # Baso # Seg Neutrophils % Seg Neuts % (Manual) Lymphocytes % (Manual) Monocytes % (Manual) 10.0 H Eosinophils % (Manual) Basophils % (Manual) Nucleated RBC % 3.0 H Seg Neutrophils # Seg Neutrophils # Man Lymphocytes # (Manual) Monocytes # (Manual) 1.3 H Eosinophils # (Manual) Basophils # (Manual) PT 18.0 H INR 1.41 H Fibrinogen dRVVT Confirm Interp Factor V Activity POC ABG pH POC ABG pCO2 POC ABG pO2 ABG pO2 ABG HCO3 ABG Base Excess ABG Hemoglobin Oxyhemoglobin Sodium 135 L Potassium Chloride Carbon Dioxide 17 L BUN 81 H Creatinine 3.2 H Glucose 109 H POC Glucose Lactic Acid Calcium 7.4 L Ionized Calcium Phosphorus 4.60 H D Magnesium Direct Bilirubin AST ALT Alkaline Phosphatase Lactate Dehydrogenase Troponin T C-Reactive Protein Total Protein Albumin Prealbumin Triglycerides Cholesterol LDL Cholesterol Direct HDL Cholesterol 25-OH Vitamin D Total PTH Intact Urine pH Urine WBC (Auto) Urine Creatinine Urine Total Protein Fluid Total Protein Vancomycin Trough Rheumatoid Factor Complement C4 Miscellaneous Test Crossmatch 10/09/16 10/09/16 10/09/16 03:45 05:14 07:20 WBC RBC Hgb Hct MCV MCH MCHC RDW Plt Count Lymph % (Auto) [place] % (Auto) Lymph # [place] # Baso # Seg Neutrophils % Seg Neuts % (Manual) Lymphocytes % (Manual) Monocytes % (Manual) Eosinophils % (Manual) Basophils % (Manual) Nucleated RBC % Seg Neutrophils # Seg Neutrophils # Man Lymphocytes # (Manual) Monocytes # (Manual) Eosinophils # (Manual) Basophils # (Manual) PT 19.0 H INR 1.51 H Fibrinogen dRVVT Confirm Interp Factor V Activity POC ABG pH POC ABG pCO2 POC ABG pO2 ABG pO2 ABG HCO3 ABG Base Excess ABG Hemoglobin Oxyhemoglobin Sodium Potassium Chloride Carbon Dioxide BUN Creatinine Glucose POC Glucose 151 H Lactic Acid Calcium Ionized Calcium Phosphorus Magnesium Direct Bilirubin AST ALT Alkaline Phosphatase Lactate Dehydrogenase Troponin T C-Reactive Protein Total Protein Albumin Prealbumin Triglycerides Cholesterol LDL Cholesterol Direct HDL Cholesterol 25-OH Vitamin D Total PTH Intact Urine pH Urine WBC (Auto) Urine Creatinine Urine Total Protein Fluid Total Protein Vancomycin Trough Rheumatoid Factor Complement C4 Miscellaneous Test Crossmatch See Detail 10/09/16 10/09/16 10/09/16 11:46 16:20 16:43 WBC RBC Hgb 7.2 L Hct 22.2 L MCV MCH MCHC RDW Plt Count Lymph % (Auto) [place] % (Auto) Lymph # [place] # Baso # Seg Neutrophils % Seg Neuts % (Manual) Lymphocytes % (Manual) Monocytes % (Manual) Eosinophils % (Manual) Basophils % (Manual) Nucleated RBC % Seg Neutrophils # Seg Neutrophils # Man Lymphocytes # (Manual) Monocytes # (Manual) Eosinophils # (Manual) Basophils # (Manual) PT INR Fibrinogen dRVVT Confirm Interp Factor V Activity POC ABG pH POC ABG pCO2 POC ABG pO2 ABG pO2 ABG HCO3 ABG Base Excess ABG Hemoglobin Oxyhemoglobin Sodium Potassium Chloride Carbon Dioxide BUN Creatinine Glucose POC Glucose 133 H 141 H Lactic Acid Calcium Ionized Calcium Phosphorus Magnesium Direct Bilirubin AST ALT Alkaline Phosphatase Lactate Dehydrogenase Troponin T C-Reactive Protein Total Protein Albumin Prealbumin Triglycerides Cholesterol LDL Cholesterol Direct HDL Cholesterol 25-OH Vitamin D Total PTH Intact Urine pH Urine WBC (Auto) Urine Creatinine Urine Total Protein Fluid Total Protein Vancomycin Trough Rheumatoid Factor Complement C4 Miscellaneous Test Crossmatch 10/10/16 10/10/16 10/10/16 05:00 05:00 11:19 WBC 18.5 H RBC 2.19 L Hgb 6.4 L Hct 19.6 L* MCV MCH MCHC RDW 19.3 H Plt Count 93 L Lymph % (Auto) [place] % (Auto) Lymph # [place] # Baso # Seg Neutrophils % Seg Neuts % (Manual) Lymphocytes % (Manual) 10.0 L Monocytes % (Manual) Eosinophils % (Manual) Basophils % (Manual) Nucleated RBC % 4.0 H Seg Neutrophils # Seg Neutrophils # Man 11.3 H Lymphocytes # (Manual) Monocytes # (Manual) Eosinophils # (Manual) Basophils # (Manual) PT INR Fibrinogen dRVVT Confirm Interp Factor V Activity POC ABG pH POC ABG pCO2 POC ABG pO2 ABG pO2 ABG HCO3 ABG Base Excess ABG Hemoglobin Oxyhemoglobin Sodium Potassium 5.7 H D Chloride Carbon Dioxide 16 L BUN 94 H Creatinine 3.1 H Glucose 131 H POC Glucose 153 H Lactic Acid Calcium 8.2 L Ionized Calcium Phosphorus 5.10 H Magnesium 2.40 H Direct Bilirubin 0.3 H AST ALT < 5 L Alkaline Phosphatase 319 H Lactate Dehydrogenase Troponin T C-Reactive Protein Total Protein 5.1 L Albumin 1.0 L Prealbumin Triglycerides Cholesterol LDL Cholesterol Direct HDL Cholesterol 25-OH Vitamin D Total PTH Intact Urine pH Urine WBC (Auto) Urine Creatinine Urine Total Protein Fluid Total Protein Vancomycin Trough Rheumatoid Factor Complement C4 Miscellaneous Test Crossmatch 10/10/16 10/10/16 10/11/16 17:50 23:30 04:15 WBC RBC Hgb Hct MCV MCH MCHC RDW Plt Count Lymph % (Auto) [place] % (Auto) Lymph # [place] # Baso # Seg Neutrophils % Seg Neuts % (Manual) Lymphocytes % (Manual) Monocytes % (Manual) Eosinophils % (Manual) Basophils % (Manual) Nucleated RBC % Seg Neutrophils # Seg Neutrophils # Man Lymphocytes # (Manual) Monocytes # (Manual) Eosinophils # (Manual) Basophils # (Manual) PT INR Fibrinogen dRVVT Confirm Interp Factor V Activity POC ABG pH POC ABG pCO2 POC ABG pO2 ABG pO2 ABG HCO3 ABG Base Excess ABG Hemoglobin Oxyhemoglobin Sodium Potassium Chloride 96.4 L Carbon Dioxide 21 L BUN 57 H Creatinine 2.1 H Glucose 151 H POC Glucose 146 H 141 H Lactic Acid Calcium 8.3 L Ionized Calcium Phosphorus Magnesium Direct Bilirubin AST ALT Alkaline Phosphatase Lactate Dehydrogenase Troponin T C-Reactive Protein Total Protein Albumin Prealbumin Triglycerides Cholesterol LDL Cholesterol Direct HDL Cholesterol 25-OH Vitamin D Total PTH Intact Urine pH Urine WBC (Auto) Urine Creatinine Urine Total Protein Fluid Total Protein Vancomycin Trough Rheumatoid Factor Complement C4 Miscellaneous Test Crossmatch 10/11/16 10/11/16 10/11/16 04:15 04:15 05:30 WBC 28.3 H RBC 3.12 L Hgb 9.3 L Hct 28.7 L D MCV MCH MCHC RDW 17.7 H Plt Count 128 L Lymph % (Auto) [place] % (Auto) Lymph # [place] # Baso # Seg Neutrophils % Seg Neuts % (Manual) Lymphocytes % (Manual) Monocytes % (Manual) Eosinophils % (Manual) Basophils % (Manual) Nucleated RBC % Seg Neutrophils # Seg Neutrophils # Man Lymphocytes # (Manual) Monocytes # (Manual) Eosinophils # (Manual) Basophils # (Manual) PT INR Fibrinogen dRVVT Confirm Interp Factor V Activity POC ABG pH POC ABG pCO2 POC ABG pO2 ABG pO2 ABG HCO3 ABG Base Excess ABG Hemoglobin Oxyhemoglobin Sodium Potassium Chloride Carbon Dioxide BUN Creatinine Glucose POC Glucose 167 H Lactic Acid Calcium Ionized Calcium Phosphorus Magnesium Direct Bilirubin AST ALT Alkaline Phosphatase Lactate Dehydrogenase Troponin T C-Reactive Protein 15.80 H Total Protein Albumin Prealbumin Triglycerides Cholesterol LDL Cholesterol Direct HDL Cholesterol 25-OH Vitamin D Total PTH Intact Urine pH Urine WBC (Auto) Urine Creatinine Urine Total Protein Fluid Total Protein Vancomycin Trough Rheumatoid Factor Complement C4 Miscellaneous Test Crossmatch 10/11/16 10/11/16 10/11/16 11:40 15:49 23:57 WBC RBC Hgb Hct MCV MCH MCHC RDW Plt Count Lymph % (Auto) [place] % (Auto) Lymph # [place] # Baso # Seg Neutrophils % Seg Neuts % (Manual) Lymphocytes % (Manual) Monocytes % (Manual) Eosinophils % (Manual) Basophils % (Manual) Nucleated RBC % Seg Neutrophils # Seg Neutrophils # Man Lymphocytes # (Manual) Monocytes # (Manual) Eosinophils # (Manual) Basophils # (Manual) PT INR Fibrinogen dRVVT Confirm Interp Factor V Activity POC ABG pH POC ABG pCO2 POC ABG pO2 ABG pO2 ABG HCO3 ABG Base Excess ABG Hemoglobin Oxyhemoglobin Sodium Potassium Chloride Carbon Dioxide BUN Creatinine Glucose POC Glucose 139 H 168 H 161 H Lactic Acid Calcium Ionized Calcium Phosphorus Magnesium Direct Bilirubin AST ALT Alkaline Phosphatase Lactate Dehydrogenase Troponin T C-Reactive Protein Total Protein Albumin Prealbumin Triglycerides Cholesterol LDL Cholesterol Direct HDL Cholesterol 25-OH Vitamin D Total PTH Intact Urine pH Urine WBC (Auto) Urine Creatinine Urine Total Protein Fluid Total Protein Vancomycin Trough Rheumatoid Factor Complement C4 Miscellaneous Test Crossmatch 10/12/16 10/12/16 10/12/16 04:40 04:40 05:44 WBC 22.5 H RBC 2.88 L Hgb 8.8 L Hct 26.8 L MCV MCH MCHC RDW 17.8 H Plt Count Lymph % (Auto) [place] % (Auto) Lymph # [place] # Baso # Seg Neutrophils % Seg Neuts % (Manual) Lymphocytes % (Manual) Monocytes % (Manual) Eosinophils % (Manual) Basophils % (Manual) Nucleated RBC % Seg Neutrophils # Seg Neutrophils # Man Lymphocytes # (Manual) Monocytes # (Manual) Eosinophils # (Manual) Basophils # (Manual) PT INR Fibrinogen dRVVT Confirm Interp Factor V Activity POC ABG pH POC ABG pCO2 POC ABG pO2 ABG pO2 ABG HCO3 ABG Base Excess ABG Hemoglobin Oxyhemoglobin Sodium 134 L Potassium Chloride 93.0 L Carbon Dioxide BUN 74 H Creatinine 2.5 H Glucose 137 H POC Glucose 158 H Lactic Acid Calcium 8.2 L Ionized Calcium Phosphorus Magnesium Direct Bilirubin AST ALT Alkaline Phosphatase Lactate Dehydrogenase Troponin T C-Reactive Protein Total Protein Albumin Prealbumin Triglycerides Cholesterol LDL Cholesterol Direct HDL Cholesterol 25-OH Vitamin D Total PTH Intact Urine pH Urine WBC (Auto) Urine Creatinine Urine Total Protein Fluid Total Protein Vancomycin Trough Rheumatoid Factor Complement C4 Miscellaneous Test Crossmatch 10/12/16 10/12/16 10/12/16 12:27 18:18 23:46 WBC RBC Hgb Hct MCV MCH MCHC RDW Plt Count Lymph % (Auto) [place] % (Auto) Lymph # [place] # Baso # Seg Neutrophils % Seg Neuts % (Manual) Lymphocytes % (Manual) Monocytes % (Manual) Eosinophils % (Manual) Basophils % (Manual) Nucleated RBC % Seg Neutrophils # Seg Neutrophils # Man Lymphocytes # (Manual) Monocytes # (Manual) Eosinophils # (Manual) Basophils # (Manual) PT INR Fibrinogen dRVVT Confirm Interp Factor V Activity POC ABG pH POC ABG pCO2 POC ABG pO2 ABG pO2 ABG HCO3 ABG Base Excess ABG Hemoglobin Oxyhemoglobin Sodium Potassium Chloride Carbon Dioxide BUN Creatinine Glucose POC Glucose 153 H 140 H 150 H Lactic Acid Calcium Ionized Calcium Phosphorus Magnesium Direct Bilirubin AST ALT Alkaline Phosphatase Lactate Dehydrogenase Troponin T C-Reactive Protein Total Protein Albumin Prealbumin Triglycerides Cholesterol LDL Cholesterol Direct HDL Cholesterol 25-OH Vitamin D Total PTH Intact Urine pH Urine WBC (Auto) Urine Creatinine Urine Total Protein Fluid Total Protein Vancomycin Trough Rheumatoid Factor Complement C4 Miscellaneous Test Crossmatch 10/13/16 10/13/16 10/13/16 06:22 09:20 12:29 WBC RBC Hgb Hct MCV MCH MCHC RDW Plt Count Lymph % (Auto) [place] % (Auto) Lymph # [place] # Baso # Seg Neutrophils % Seg Neuts % (Manual) Lymphocytes % (Manual) Monocytes % (Manual) Eosinophils % (Manual) Basophils % (Manual) Nucleated RBC % Seg Neutrophils # Seg Neutrophils # Man Lymphocytes # (Manual) Monocytes # (Manual) Eosinophils # (Manual) Basophils # (Manual) PT INR Fibrinogen dRVVT Confirm Interp Factor V Activity POC ABG pH POC ABG pCO2 POC ABG pO2 ABG pO2 ABG HCO3 ABG Base Excess ABG Hemoglobin Oxyhemoglobin Sodium Potassium Chloride Carbon Dioxide BUN Creatinine Glucose POC Glucose 165 H 193 H Lactic Acid Calcium Ionized Calcium Phosphorus Magnesium Direct Bilirubin AST ALT Alkaline Phosphatase Lactate Dehydrogenase Troponin T C-Reactive Protein Total Protein Albumin Prealbumin Triglycerides Cholesterol LDL Cholesterol Direct HDL Cholesterol 25-OH Vitamin D Total PTH Intact Urine pH Urine WBC (Auto) Urine Creatinine Urine Total Protein Fluid Total Protein Vancomycin Trough Rheumatoid Factor Complement C4 Miscellaneous Test Flexitest 1 H Crossmatch 10/13/16 10/13/16 10/13/16 18:09 Unknown Unknown WBC 23.4 H RBC 2.83 L Hgb 8.7 L Hct 26.1 L MCV MCH MCHC RDW 18.1 H Plt Count Lymph % (Auto) [place] % (Auto) Lymph # [place] # Baso # Seg Neutrophils % Seg Neuts % (Manual) Lymphocytes % (Manual) Monocytes % (Manual) Eosinophils % (Manual) Basophils % (Manual) Nucleated RBC % Seg Neutrophils # Seg Neutrophils # Man Lymphocytes # (Manual) Monocytes # (Manual) Eosinophils # (Manual) Basophils # (Manual) PT INR Fibrinogen dRVVT Confirm Interp Factor V Activity POC ABG pH POC ABG pCO2 POC ABG pO2 ABG pO2 ABG HCO3 ABG Base Excess ABG Hemoglobin Oxyhemoglobin Sodium Potassium Chloride 95.8 L Carbon Dioxide BUN 82 H Creatinine 2.6 H Glucose 152 H POC Glucose 166 H Lactic Acid Calcium Ionized Calcium Phosphorus Magnesium Direct Bilirubin AST ALT Alkaline Phosphatase Lactate Dehydrogenase Troponin T C-Reactive Protein Total Protein Albumin Prealbumin Triglycerides Cholesterol LDL Cholesterol Direct HDL Cholesterol 25-OH Vitamin D Total PTH Intact Urine pH Urine WBC (Auto) Urine Creatinine Urine Total Protein Fluid Total Protein Vancomycin Trough Rheumatoid Factor Complement C4 Miscellaneous Test Crossmatch 10/14/16 10/14/16 10/14/16 05:38 06:35 08:10 WBC 20.7 H RBC 2.81 L Hgb 8.4 L Hct 27.2 L MCV MCH MCHC RDW 19.4 H Plt Count Lymph % (Auto) [place] % (Auto) Lymph # [place] # Baso # Seg Neutrophils % Seg Neuts % (Manual) Lymphocytes % (Manual) Monocytes % (Manual) Eosinophils % (Manual) Basophils % (Manual) Nucleated RBC % Seg Neutrophils # Seg Neutrophils # Man Lymphocytes # (Manual) Monocytes # (Manual) Eosinophils # (Manual) Basophils # (Manual) PT INR Fibrinogen dRVVT Confirm Interp Factor V Activity POC ABG pH POC ABG pCO2 POC ABG pO2 ABG pO2 ABG HCO3 ABG Base Excess ABG Hemoglobin Oxyhemoglobin Sodium Potassium Chloride Carbon Dioxide BUN 58 H Creatinine 1.9 H Glucose 169 H POC Glucose 195 H Lactic Acid Calcium Ionized Calcium Phosphorus Magnesium Direct Bilirubin AST ALT Alkaline Phosphatase Lactate Dehydrogenase Troponin T C-Reactive Protein Total Protein Albumin Prealbumin Triglycerides Cholesterol LDL Cholesterol Direct HDL Cholesterol 25-OH Vitamin D Total PTH Intact Urine pH Urine WBC (Auto) Urine Creatinine Urine Total Protein Fluid Total Protein Vancomycin Trough Rheumatoid Factor Complement C4 Miscellaneous Test Crossmatch 10/14/16 10/14/16 10/14/16 11:44 17:13 23:28 WBC RBC Hgb Hct MCV MCH MCHC RDW Plt Count Lymph % (Auto) [place] % (Auto) Lymph # [place] # Baso # Seg Neutrophils % Seg Neuts % (Manual) Lymphocytes % (Manual) Monocytes % (Manual) Eosinophils % (Manual) Basophils % (Manual) Nucleated RBC % Seg Neutrophils # Seg Neutrophils # Man Lymphocytes # (Manual) Monocytes # (Manual) Eosinophils # (Manual) Basophils # (Manual) PT INR Fibrinogen dRVVT Confirm Interp Factor V Activity POC ABG pH POC ABG pCO2 POC ABG pO2 ABG pO2 ABG HCO3 ABG Base Excess ABG Hemoglobin Oxyhemoglobin Sodium Potassium Chloride Carbon Dioxide BUN Creatinine Glucose POC Glucose 174 H 121 H 151 H Lactic Acid Calcium Ionized Calcium Phosphorus Magnesium Direct Bilirubin AST ALT Alkaline Phosphatase Lactate Dehydrogenase Troponin T C-Reactive Protein Total Protein Albumin Prealbumin Triglycerides Cholesterol LDL Cholesterol Direct HDL Cholesterol 25-OH Vitamin D Total PTH Intact Urine pH Urine WBC (Auto) Urine Creatinine Urine Total Protein Fluid Total Protein Vancomycin Trough Rheumatoid Factor Complement C4 Miscellaneous Test Crossmatch 10/15/16 10/15/16 10/15/16 05:06 12:26 17:48 WBC RBC Hgb Hct MCV MCH MCHC RDW Plt Count Lymph % (Auto) [place] % (Auto) Lymph # [place] # Baso # Seg Neutrophils % Seg Neuts % (Manual) Lymphocytes % (Manual) Monocytes % (Manual) Eosinophils % (Manual) Basophils % (Manual) Nucleated RBC % Seg Neutrophils # Seg Neutrophils # Man Lymphocytes # (Manual) Monocytes # (Manual) Eosinophils # (Manual) Basophils # (Manual) PT INR Fibrinogen dRVVT Confirm Interp Factor V Activity POC ABG pH POC ABG pCO2 POC ABG pO2 ABG pO2 ABG HCO3 ABG Base Excess ABG Hemoglobin Oxyhemoglobin Sodium Potassium Chloride Carbon Dioxide BUN Creatinine Glucose POC Glucose 151 H 149 H 153 H Lactic Acid Calcium Ionized Calcium Phosphorus Magnesium Direct Bilirubin AST ALT Alkaline Phosphatase Lactate Dehydrogenase Troponin T C-Reactive Protein Total Protein Albumin Prealbumin Triglycerides Cholesterol LDL Cholesterol Direct HDL Cholesterol 25-OH Vitamin D Total PTH Intact Urine pH Urine WBC (Auto) Urine Creatinine Urine Total Protein Fluid Total Protein Vancomycin Trough Rheumatoid Factor Complement C4 Miscellaneous Test Crossmatch 10/15/16 10/15/16 10/16/16 Unknown Unknown 00:02 WBC 23.4 H RBC 2.78 L Hgb 8.5 L Hct 25.7 L MCV MCH MCHC RDW 18.7 H Plt Count Lymph % (Auto) [place] % (Auto) Lymph # [place] # Baso # Seg Neutrophils % Seg Neuts % (Manual) Lymphocytes % (Manual) Monocytes % (Manual) Eosinophils % (Manual) Basophils % (Manual) Nucleated RBC % Seg Neutrophils # Seg Neutrophils # Man Lymphocytes # (Manual) Monocytes # (Manual) Eosinophils # (Manual) Basophils # (Manual) PT INR Fibrinogen dRVVT Confirm Interp Factor V Activity POC ABG pH POC ABG pCO2 POC ABG pO2 ABG pO2 ABG HCO3 ABG Base Excess ABG Hemoglobin Oxyhemoglobin Sodium Potassium Chloride Carbon Dioxide BUN 73 H Creatinine 2.3 H Glucose 120 H POC Glucose 137 H Lactic Acid Calcium Ionized Calcium Phosphorus Magnesium Direct Bilirubin AST ALT Alkaline Phosphatase Lactate Dehydrogenase Troponin T C-Reactive Protein Total Protein Albumin Prealbumin Triglycerides Cholesterol LDL Cholesterol Direct HDL Cholesterol 25-OH Vitamin D Total PTH Intact Urine pH Urine WBC (Auto) Urine Creatinine Urine Total Protein Fluid Total Protein Vancomycin Trough Rheumatoid Factor Complement C4 Miscellaneous Test Crossmatch 10/16/16 10/16/16 10/16/16 05:44 06:25 06:25 WBC 22.5 H RBC 2.76 L Hgb 8.3 L Hct 25.2 L MCV MCH MCHC RDW 18.3 H Plt Count Lymph % (Auto) [place] % (Auto) Lymph # [place] # Baso # Seg Neutrophils % Seg Neuts % (Manual) Lymphocytes % (Manual) Monocytes % (Manual) Eosinophils % (Manual) Basophils % (Manual) Nucleated RBC % Seg Neutrophils # Seg Neutrophils # Man Lymphocytes # (Manual) Monocytes # (Manual) Eosinophils # (Manual) Basophils # (Manual) PT INR Fibrinogen dRVVT Confirm Interp Factor V Activity POC ABG pH POC ABG pCO2 POC ABG pO2 ABG pO2 ABG HCO3 ABG Base Excess ABG Hemoglobin Oxyhemoglobin Sodium Potassium Chloride Carbon Dioxide BUN 92 H Creatinine 3.0 H Glucose 138 H POC Glucose 110 H Lactic Acid Calcium Ionized Calcium Phosphorus Magnesium Direct Bilirubin AST ALT Alkaline Phosphatase Lactate Dehydrogenase Troponin T C-Reactive Protein Total Protein Albumin Prealbumin Triglycerides Cholesterol LDL Cholesterol Direct HDL Cholesterol 25-OH Vitamin D Total PTH Intact Urine pH Urine WBC (Auto) Urine Creatinine Urine Total Protein Fluid Total Protein Vancomycin Trough Rheumatoid Factor Complement C4 Miscellaneous Test Crossmatch 10/16/16 10/16/16 10/16/16 11:27 11:48 17:36 WBC RBC Hgb Hct MCV MCH MCHC RDW Plt Count Lymph % (Auto) [place] % (Auto) Lymph # [place] # Baso # Seg Neutrophils % Seg Neuts % (Manual) Lymphocytes % (Manual) Monocytes % (Manual) Eosinophils % (Manual) Basophils % (Manual) Nucleated RBC % Seg Neutrophils # Seg Neutrophils # Man Lymphocytes # (Manual) Monocytes # (Manual) Eosinophils # (Manual) Basophils # (Manual) PT INR Fibrinogen dRVVT Confirm Interp Factor V Activity POC ABG pH 7.582 H POC ABG pCO2 27.4 L POC ABG pO2 110 H ABG pO2 ABG HCO3 ABG Base Excess ABG Hemoglobin Oxyhemoglobin Sodium Potassium Chloride Carbon Dioxide BUN Creatinine Glucose POC Glucose 121 H 133 H Lactic Acid Calcium Ionized Calcium Phosphorus Magnesium Direct Bilirubin AST ALT Alkaline Phosphatase Lactate Dehydrogenase Troponin T C-Reactive Protein Total Protein Albumin Prealbumin Triglycerides Cholesterol LDL Cholesterol Direct HDL Cholesterol 25-OH Vitamin D Total PTH Intact Urine pH Urine WBC (Auto) Urine Creatinine Urine Total Protein Fluid Total Protein Vancomycin Trough Rheumatoid Factor Complement C4 Miscellaneous Test Crossmatch 10/16/16 10/17/16 10/17/16 20:48 04:24 04:24 WBC 21.4 H RBC 2.72 L Hgb 8.0 L Hct 25.2 L MCV MCH MCHC RDW 18.0 H Plt Count Lymph % (Auto) [place] % (Auto) Lymph # [place] # Baso # Seg Neutrophils % Seg Neuts % (Manual) Lymphocytes % (Manual) Monocytes % (Manual) Eosinophils % (Manual) Basophils % (Manual) Nucleated RBC % Seg Neutrophils # Seg Neutrophils # Man Lymphocytes # (Manual) Monocytes # (Manual) Eosinophils # (Manual) Basophils # (Manual) PT INR Fibrinogen dRVVT Confirm Interp Factor V Activity POC ABG pH 7.561 H POC ABG pCO2 24.4 L POC ABG pO2 77 L ABG pO2 ABG HCO3 ABG Base Excess ABG Hemoglobin Oxyhemoglobin Sodium 148 H Potassium Chloride Carbon Dioxide BUN 104 H Creatinine 3.0 H Glucose 149 H POC Glucose Lactic Acid Calcium Ionized Calcium Phosphorus Magnesium Direct Bilirubin AST ALT Alkaline Phosphatase 138 H Lactate Dehydrogenase Troponin T C-Reactive Protein Total Protein 6.2 L Albumin 1.5 L Prealbumin Triglycerides Cholesterol LDL Cholesterol Direct HDL Cholesterol 25-OH Vitamin D Total PTH Intact Urine pH Urine WBC (Auto) Urine Creatinine Urine Total Protein Fluid Total Protein Vancomycin Trough Rheumatoid Factor Complement C4 Miscellaneous Test Crossmatch 10/17/16 10/17/16 10/17/16 06:02 12:17 17:14 WBC RBC Hgb Hct MCV MCH MCHC RDW Plt Count Lymph % (Auto) [place] % (Auto) Lymph # [place] # Baso # Seg Neutrophils % Seg Neuts % (Manual) Lymphocytes % (Manual) Monocytes % (Manual) Eosinophils % (Manual) Basophils % (Manual) Nucleated RBC % Seg Neutrophils # Seg Neutrophils # Man Lymphocytes # (Manual) Monocytes # (Manual) Eosinophils # (Manual) Basophils # (Manual) PT INR Fibrinogen dRVVT Confirm Interp Factor V Activity POC ABG pH POC ABG pCO2 POC ABG pO2 ABG pO2 ABG HCO3 ABG Base Excess ABG Hemoglobin Oxyhemoglobin Sodium Potassium Chloride Carbon Dioxide BUN Creatinine Glucose POC Glucose 170 H 167 H 126 H Lactic Acid Calcium Ionized Calcium Phosphorus Magnesium Direct Bilirubin AST ALT Alkaline Phosphatase Lactate Dehydrogenase Troponin T C-Reactive Protein Total Protein Albumin Prealbumin Triglycerides Cholesterol LDL Cholesterol Direct HDL Cholesterol 25-OH Vitamin D Total PTH Intact Urine pH Urine WBC (Auto) Urine Creatinine Urine Total Protein Fluid Total Protein Vancomycin Trough Rheumatoid Factor Complement C4 Miscellaneous Test Crossmatch 10/17/16 10/18/16 10/18/16 23:17 04:00 04:00 WBC 20.7 H RBC 2.47 L Hgb 7.4 L Hct 22.9 L MCV MCH MCHC RDW 17.5 H Plt Count Lymph % (Auto) [place] % (Auto) Lymph # [place] # Baso # Seg Neutrophils % Seg Neuts % (Manual) Lymphocytes % (Manual) Monocytes % (Manual) Eosinophils % (Manual) Basophils % (Manual) Nucleated RBC % Seg Neutrophils # Seg Neutrophils # Man Lymphocytes # (Manual) Monocytes # (Manual) Eosinophils # (Manual) Basophils # (Manual) PT INR Fibrinogen dRVVT Confirm Interp Factor V Activity POC ABG pH POC ABG pCO2 POC ABG pO2 ABG pO2 ABG HCO3 ABG Base Excess ABG Hemoglobin Oxyhemoglobin Sodium 149 H Potassium Chloride 107.9 H Carbon Dioxide 20 L BUN 117 H Creatinine 3.2 H Glucose 119 H POC Glucose 121 H Lactic Acid Calcium Ionized Calcium Phosphorus Magnesium Direct Bilirubin AST ALT Alkaline Phosphatase Lactate Dehydrogenase Troponin T C-Reactive Protein Total Protein Albumin Prealbumin Triglycerides Cholesterol LDL Cholesterol Direct HDL Cholesterol 25-OH Vitamin D Total PTH Intact Urine pH Urine WBC (Auto) Urine Creatinine Urine Total Protein Fluid Total Protein Vancomycin Trough Rheumatoid Factor Complement C4 Miscellaneous Test Crossmatch 10/18/16 10/18/16 10/18/16 05:23 10:46 17:30 WBC RBC Hgb Hct MCV MCH MCHC RDW Plt Count Lymph % (Auto) [place] % (Auto) Lymph # [place] # Baso # Seg Neutrophils % Seg Neuts % (Manual) Lymphocytes % (Manual) Monocytes % (Manual) Eosinophils % (Manual) Basophils % (Manual) Nucleated RBC % Seg Neutrophils # Seg Neutrophils # Man Lymphocytes # (Manual) Monocytes # (Manual) Eosinophils # (Manual) Basophils # (Manual) PT INR Fibrinogen dRVVT Confirm Interp Factor V Activity POC ABG pH POC ABG pCO2 POC ABG pO2 ABG pO2 ABG HCO3 ABG Base Excess ABG Hemoglobin Oxyhemoglobin Sodium Potassium Chloride Carbon Dioxide BUN Creatinine Glucose POC Glucose 119 H 155 H 124 H Lactic Acid Calcium Ionized Calcium Phosphorus Magnesium Direct Bilirubin AST ALT Alkaline Phosphatase Lactate Dehydrogenase Troponin T C-Reactive Protein Total Protein Albumin Prealbumin Triglycerides Cholesterol LDL Cholesterol Direct HDL Cholesterol 25-OH Vitamin D Total PTH Intact Urine pH Urine WBC (Auto) Urine Creatinine Urine Total Protein Fluid Total Protein Vancomycin Trough Rheumatoid Factor Complement C4 Miscellaneous Test Crossmatch 10/19/16 10/19/16 10/19/16 04:00 04:00 05:25 WBC 17.4 H RBC 2.54 L Hgb 7.7 L Hct 23.6 L MCV MCH MCHC RDW 17.3 H Plt Count Lymph % (Auto) [place] % (Auto) Lymph # [place] # Baso # Seg Neutrophils % Seg Neuts % (Manual) Lymphocytes % (Manual) Monocytes % (Manual) Eosinophils % (Manual) Basophils % (Manual) Nucleated RBC % Seg Neutrophils # Seg Neutrophils # Man Lymphocytes # (Manual) Monocytes # (Manual) Eosinophils # (Manual) Basophils # (Manual) PT INR Fibrinogen dRVVT Confirm Interp Factor V Activity POC ABG pH POC ABG pCO2 POC ABG pO2 ABG pO2 ABG HCO3 ABG Base Excess ABG Hemoglobin Oxyhemoglobin Sodium Potassium Chloride Carbon Dioxide BUN 72 H Creatinine 2.1 H Glucose 116 H POC Glucose 119 H Lactic Acid Calcium Ionized Calcium Phosphorus Magnesium Direct Bilirubin AST ALT Alkaline Phosphatase Lactate Dehydrogenase Troponin T C-Reactive Protein Total Protein Albumin Prealbumin Triglycerides Cholesterol LDL Cholesterol Direct HDL Cholesterol 25-OH Vitamin D Total PTH Intact Urine pH Urine WBC (Auto) Urine Creatinine Urine Total Protein Fluid Total Protein Vancomycin Trough Rheumatoid Factor Complement C4 Miscellaneous Test Crossmatch 10/19/16 10/19/16 10/20/16 11:46 23:59 06:00 WBC RBC Hgb Hct MCV MCH MCHC RDW Plt Count Lymph % (Auto) [place] % (Auto) Lymph # [place] # Baso # Seg Neutrophils % Seg Neuts % (Manual) Lymphocytes % (Manual) Monocytes % (Manual) Eosinophils % (Manual) Basophils % (Manual) Nucleated RBC % Seg Neutrophils # Seg Neutrophils # Man Lymphocytes # (Manual) Monocytes # (Manual) Eosinophils # (Manual) Basophils # (Manual) PT INR Fibrinogen dRVVT Confirm Interp Factor V Activity POC ABG pH POC ABG pCO2 POC ABG pO2 ABG pO2 ABG HCO3 ABG Base Excess ABG Hemoglobin Oxyhemoglobin Sodium Potassium Chloride Carbon Dioxide 17 L BUN 94 H Creatinine 2.7 H Glucose POC Glucose 116 H 117 H Lactic Acid Calcium Ionized Calcium Phosphorus Magnesium Direct Bilirubin AST ALT Alkaline Phosphatase Lactate Dehydrogenase Troponin T C-Reactive Protein Total Protein Albumin Prealbumin Triglycerides Cholesterol LDL Cholesterol Direct HDL Cholesterol 25-OH Vitamin D Total PTH Intact Urine pH Urine WBC (Auto) Urine Creatinine Urine Total Protein Fluid Total Protein Vancomycin Trough Rheumatoid Factor Complement C4 Miscellaneous Test Crossmatch 10/20/16 10/20/16 10/20/16 06:00 11:49 16:00 WBC 19.7 H RBC 2.51 L Hgb 7.7 L Hct 23.5 L MCV MCH MCHC RDW 17.5 H Plt Count Lymph % (Auto) [place] % (Auto) Lymph # [place] # Baso # Seg Neutrophils % Seg Neuts % (Manual) Lymphocytes % (Manual) Monocytes % (Manual) Eosinophils % (Manual) Basophils % (Manual) Nucleated RBC % Seg Neutrophils # Seg Neutrophils # Man Lymphocytes # (Manual) Monocytes # (Manual) Eosinophils # (Manual) Basophils # (Manual) PT INR Fibrinogen dRVVT Confirm Interp Factor V Activity POC ABG pH POC ABG pCO2 POC ABG pO2 ABG pO2 ABG HCO3 ABG Base Excess ABG Hemoglobin Oxyhemoglobin Sodium Potassium Chloride Carbon Dioxide BUN Creatinine Glucose POC Glucose 117 H Lactic Acid Calcium Ionized Calcium Phosphorus Magnesium Direct Bilirubin AST ALT Alkaline Phosphatase Lactate Dehydrogenase Troponin T C-Reactive Protein Total Protein Albumin Prealbumin Triglycerides Cholesterol LDL Cholesterol Direct HDL Cholesterol 25-OH Vitamin D Total PTH Intact Urine pH Urine WBC (Auto) Urine Creatinine Urine Total Protein Fluid Total Protein Vancomycin Trough Rheumatoid Factor Complement C4 Miscellaneous Test Flexitest 1 H Crossmatch 10/20/16 10/20/16 10/21/16 18:36 23:39 04:00 WBC RBC Hgb Hct MCV MCH MCHC RDW Plt Count Lymph % (Auto) [place] % (Auto) Lymph # [place] # Baso # Seg Neutrophils % Seg Neuts % (Manual) Lymphocytes % (Manual) Monocytes % (Manual) Eosinophils % (Manual) Basophils % (Manual) Nucleated RBC % Seg Neutrophils # Seg Neutrophils # Man Lymphocytes # (Manual) Monocytes # (Manual) Eosinophils # (Manual) Basophils # (Manual) PT INR Fibrinogen dRVVT Confirm Interp Factor V Activity POC ABG pH POC ABG pCO2 POC ABG pO2 ABG pO2 ABG HCO3 ABG Base Excess ABG Hemoglobin Oxyhemoglobin Sodium Potassium 5.4 H D Chloride Carbon Dioxide 15 L BUN 110 H Creatinine 3.0 H Glucose POC Glucose 127 H 114 H Lactic Acid Calcium Ionized Calcium Phosphorus Magnesium Direct Bilirubin AST ALT Alkaline Phosphatase Lactate Dehydrogenase Troponin T C-Reactive Protein Total Protein Albumin Prealbumin Triglycerides Cholesterol LDL Cholesterol Direct HDL Cholesterol 25-OH Vitamin D Total PTH Intact Urine pH Urine WBC (Auto) Urine Creatinine Urine Total Protein Fluid Total Protein Vancomycin Trough Rheumatoid Factor Complement C4 Miscellaneous Test Crossmatch 10/21/16 10/21/16 10/22/16 05:54 23:46 05:18 WBC RBC Hgb Hct MCV MCH MCHC RDW Plt Count Lymph % (Auto) [place] % (Auto) Lymph # [place] # Baso # Seg Neutrophils % Seg Neuts % (Manual) Lymphocytes % (Manual) Monocytes % (Manual) Eosinophils % (Manual) Basophils % (Manual) Nucleated RBC % Seg Neutrophils # Seg Neutrophils # Man Lymphocytes # (Manual) Monocytes # (Manual) Eosinophils # (Manual) Basophils # (Manual) PT INR Fibrinogen dRVVT Confirm Interp Factor V Activity POC ABG pH POC ABG pCO2 POC ABG pO2 ABG pO2 ABG HCO3 ABG Base Excess ABG Hemoglobin Oxyhemoglobin Sodium Potassium Chloride Carbon Dioxide BUN Creatinine Glucose POC Glucose 119 H 108 H 109 H Lactic Acid Calcium Ionized Calcium Phosphorus Magnesium Direct Bilirubin AST ALT Alkaline Phosphatase Lactate Dehydrogenase Troponin T C-Reactive Protein Total Protein Albumin Prealbumin Triglycerides Cholesterol LDL Cholesterol Direct HDL Cholesterol 25-OH Vitamin D Total PTH Intact Urine pH Urine WBC (Auto) Urine Creatinine Urine Total Protein Fluid Total Protein Vancomycin Trough Rheumatoid Factor Complement C4 Miscellaneous Test Crossmatch 10/22/16 10/22/16 10/22/16 06:40 06:40 06:40 WBC 14.0 H RBC 2.03 L Hgb 7.0 L Hct 20.5 L MCV 98 H MCH 34 H MCHC 35 H RDW 17.8 H Plt Count Lymph % (Auto) [place] % (Auto) 9.9 H Lymph # [place] # 1.4 H Baso # 0.2 H Seg Neutrophils % 72.0 H Seg Neuts % (Manual) Lymphocytes % (Manual) Monocytes % (Manual) Eosinophils % (Manual) Basophils % (Manual) Nucleated RBC % Seg Neutrophils # 10.0 H Seg Neutrophils # Man Lymphocytes # (Manual) Monocytes # (Manual) Eosinophils # (Manual) Basophils # (Manual) PT INR Fibrinogen dRVVT Confirm Interp Factor V Activity POC ABG pH POC ABG pCO2 POC ABG pO2 ABG pO2 ABG HCO3 ABG Base Excess ABG Hemoglobin Oxyhemoglobin Sodium 130 L D Potassium Chloride 92.4 L Carbon Dioxide 20 L BUN 50 H Creatinine 1.6 H Glucose 589 H* POC Glucose Lactic Acid Calcium 7.8 L D Ionized Calcium Phosphorus Magnesium 1.60 L Direct Bilirubin AST ALT Alkaline Phosphatase Lactate Dehydrogenase Troponin T C-Reactive Protein Total Protein Albumin Prealbumin Triglycerides Cholesterol LDL Cholesterol Direct HDL Cholesterol 25-OH Vitamin D Total PTH Intact Urine pH Urine WBC (Auto) Urine Creatinine Urine Total Protein Fluid Total Protein Vancomycin Trough Rheumatoid Factor Complement C4 Miscellaneous Test Crossmatch 10/22/16 10/22/16 10/22/16 11:39 16:44 23:36 WBC RBC Hgb Hct MCV MCH MCHC RDW Plt Count Lymph % (Auto) [place] % (Auto) Lymph # [place] # Baso # Seg Neutrophils % Seg Neuts % (Manual) Lymphocytes % (Manual) Monocytes % (Manual) Eosinophils % (Manual) Basophils % (Manual) Nucleated RBC % Seg Neutrophils # Seg Neutrophils # Man Lymphocytes # (Manual) Monocytes # (Manual) Eosinophils # (Manual) Basophils # (Manual) PT INR Fibrinogen dRVVT Confirm Interp Factor V Activity POC ABG pH POC ABG pCO2 POC ABG pO2 ABG pO2 ABG HCO3 ABG Base Excess ABG Hemoglobin Oxyhemoglobin Sodium Potassium Chloride Carbon Dioxide BUN Creatinine Glucose POC Glucose 142 H 163 H 123 H Lactic Acid Calcium Ionized Calcium Phosphorus Magnesium Direct Bilirubin AST ALT Alkaline Phosphatase Lactate Dehydrogenase Troponin T C-Reactive Protein Total Protein Albumin Prealbumin Triglycerides Cholesterol LDL Cholesterol Direct HDL Cholesterol 25-OH Vitamin D Total PTH Intact Urine pH Urine WBC (Auto) Urine Creatinine Urine Total Protein Fluid Total Protein Vancomycin Trough Rheumatoid Factor Complement C4 Miscellaneous Test Crossmatch 10/23/16 10/23/16 10/23/16 04:58 06:00 12:12 WBC RBC Hgb Hct MCV MCH MCHC RDW Plt Count Lymph % (Auto) [place] % (Auto) Lymph # [place] # Baso # Seg Neutrophils % Seg Neuts % (Manual) Lymphocytes % (Manual) Monocytes % (Manual) Eosinophils % (Manual) Basophils % (Manual) Nucleated RBC % Seg Neutrophils # Seg Neutrophils # Man Lymphocytes # (Manual) Monocytes # (Manual) Eosinophils # (Manual) Basophils # (Manual) PT INR Fibrinogen dRVVT Confirm Interp Factor V Activity POC ABG pH POC ABG pCO2 POC ABG pO2 ABG pO2 ABG HCO3 ABG Base Excess ABG Hemoglobin Oxyhemoglobin Sodium 133 L Potassium 3.5 L Chloride 96.1 L Carbon Dioxide 18 L BUN 76 H Creatinine 2.1 H Glucose POC Glucose 133 H 138 H Lactic Acid Calcium 8.3 L Ionized Calcium Phosphorus Magnesium Direct Bilirubin AST ALT Alkaline Phosphatase Lactate Dehydrogenase Troponin T C-Reactive Protein Total Protein Albumin Prealbumin Triglycerides Cholesterol LDL Cholesterol Direct HDL Cholesterol 25-OH Vitamin D Total PTH Intact Urine pH Urine WBC (Auto) Urine Creatinine Urine Total Protein Fluid Total Protein Vancomycin Trough Rheumatoid Factor Complement C4 Miscellaneous Test Crossmatch 10/23/16 10/23/16 10/24/16 16:53 23:37 04:00 WBC RBC Hgb Hct MCV MCH MCHC RDW Plt Count Lymph % (Auto) [place] % (Auto) Lymph # [place] # Baso # Seg Neutrophils % Seg Neuts % (Manual) Lymphocytes % (Manual) Monocytes % (Manual) Eosinophils % (Manual) Basophils % (Manual) Nucleated RBC % Seg Neutrophils # Seg Neutrophils # Man Lymphocytes # (Manual) Monocytes # (Manual) Eosinophils # (Manual) Basophils # (Manual) PT INR Fibrinogen dRVVT Confirm Interp Factor V Activity POC ABG pH POC ABG pCO2 POC ABG pO2 ABG pO2 ABG HCO3 ABG Base Excess ABG Hemoglobin Oxyhemoglobin Sodium 131 L Potassium Chloride 94.5 L Carbon Dioxide 19 L BUN 97 H Creatinine 2.6 H Glucose 110 H POC Glucose 125 H 123 H Lactic Acid Calcium 8.3 L Ionized Calcium Phosphorus Magnesium Direct Bilirubin AST ALT Alkaline Phosphatase Lactate Dehydrogenase Troponin T C-Reactive Protein Total Protein Albumin Prealbumin Triglycerides Cholesterol LDL Cholesterol Direct HDL Cholesterol 25-OH Vitamin D Total PTH Intact Urine pH Urine WBC (Auto) Urine Creatinine Urine Total Protein Fluid Total Protein Vancomycin Trough Rheumatoid Factor Complement C4 Miscellaneous Test Crossmatch 10/24/16 10/24/16 10/24/16 07:49 11:39 17:52 WBC RBC Hgb 6.0 L Hct 19.7 L* MCV MCH MCHC RDW Plt Count Lymph % (Auto) [place] % (Auto) Lymph # [place] # Baso # Seg Neutrophils % Seg Neuts % (Manual) Lymphocytes % (Manual) Monocytes % (Manual) Eosinophils % (Manual) Basophils % (Manual) Nucleated RBC % Seg Neutrophils # Seg Neutrophils # Man Lymphocytes # (Manual) Monocytes # (Manual) Eosinophils # (Manual) Basophils # (Manual) PT INR Fibrinogen dRVVT Confirm Interp Factor V Activity POC ABG pH POC ABG pCO2 POC ABG pO2 ABG pO2 ABG HCO3 ABG Base Excess ABG Hemoglobin Oxyhemoglobin Sodium Potassium Chloride Carbon Dioxide BUN Creatinine Glucose POC Glucose 106 H 158 H Lactic Acid Calcium Ionized Calcium Phosphorus Magnesium Direct Bilirubin AST ALT Alkaline Phosphatase Lactate Dehydrogenase Troponin T C-Reactive Protein Total Protein Albumin Prealbumin Triglycerides Cholesterol LDL Cholesterol Direct HDL Cholesterol 25-OH Vitamin D Total PTH Intact Urine pH Urine WBC (Auto) Urine Creatinine Urine Total Protein Fluid Total Protein Vancomycin Trough Rheumatoid Factor Complement C4 Miscellaneous Test Crossmatch 10/24/16 10/24/16 10/24/16 20:00 22:27 Unknown WBC RBC Hgb 9.4 L D Hct 27.5 L D MCV MCH MCHC RDW Plt Count Lymph % (Auto) [place] % (Auto) Lymph # [place] # Baso # Seg Neutrophils % Seg Neuts % (Manual) Lymphocytes % (Manual) Monocytes % (Manual) Eosinophils % (Manual) Basophils % (Manual) Nucleated RBC % Seg Neutrophils # Seg Neutrophils # Man Lymphocytes # (Manual) Monocytes # (Manual) Eosinophils # (Manual) Basophils # (Manual) PT INR Fibrinogen dRVVT Confirm Interp Factor V Activity POC ABG pH POC ABG pCO2 POC ABG pO2 ABG pO2 ABG HCO3 ABG Base Excess ABG Hemoglobin Oxyhemoglobin Sodium Potassium Chloride Carbon Dioxide BUN Creatinine Glucose POC Glucose 125 H Lactic Acid Calcium Ionized Calcium Phosphorus Magnesium Direct Bilirubin AST ALT Alkaline Phosphatase Lactate Dehydrogenase Troponin T C-Reactive Protein Total Protein Albumin Prealbumin Triglycerides Cholesterol LDL Cholesterol Direct HDL Cholesterol 25-OH Vitamin D Total PTH Intact Urine pH Urine WBC (Auto) Urine Creatinine Urine Total Protein Fluid Total Protein Vancomycin Trough Rheumatoid Factor Complement C4 Miscellaneous Test Crossmatch See Detail 10/25/16 10/25/16 10/25/16 04:00 04:00 04:00 WBC 14.2 H RBC 2.98 L Hgb 9.0 L Hct 26.2 L MCV MCH MCHC RDW 16.6 H Plt Count Lymph % (Auto) [place] % (Auto) 10.7 H Lymph # [place] # 1.5 H Baso # Seg Neutrophils % 73.6 H Seg Neuts % (Manual) Lymphocytes % (Manual) Monocytes % (Manual) Eosinophils % (Manual) Basophils % (Manual) Nucleated RBC % Seg Neutrophils # 10.5 H Seg Neutrophils # Man Lymphocytes # (Manual) Monocytes # (Manual) Eosinophils # (Manual) Basophils # (Manual) PT INR Fibrinogen dRVVT Confirm Interp Factor V Activity POC ABG pH POC ABG pCO2 POC ABG pO2 ABG pO2 ABG HCO3 ABG Base Excess ABG Hemoglobin Oxyhemoglobin Sodium 132 L Potassium Chloride 94.7 L Carbon Dioxide BUN 51 H Creatinine 1.6 H Glucose 130 H POC Glucose Lactic Acid Calcium 8.3 L Ionized Calcium Phosphorus 1.60 L D Magnesium Direct Bilirubin AST ALT Alkaline Phosphatase Lactate Dehydrogenase Troponin T C-Reactive Protein Total Protein Albumin Prealbumin Triglycerides Cholesterol LDL Cholesterol Direct HDL Cholesterol 25-OH Vitamin D Total PTH Intact Urine pH Urine WBC (Auto) Urine Creatinine Urine Total Protein Fluid Total Protein Vancomycin Trough Rheumatoid Factor Complement C4 Miscellaneous Test Crossmatch 10/25/16 10/25/16 10/25/16 04:32 11:48 17:22 WBC RBC Hgb Hct MCV MCH MCHC RDW Plt Count Lymph % (Auto) [place] % (Auto) Lymph # [place] # Baso # Seg Neutrophils % Seg Neuts % (Manual) Lymphocytes % (Manual) Monocytes % (Manual) Eosinophils % (Manual) Basophils % (Manual) Nucleated RBC % Seg Neutrophils # Seg Neutrophils # Man Lymphocytes # (Manual) Monocytes # (Manual) Eosinophils # (Manual) Basophils # (Manual) PT INR Fibrinogen dRVVT Confirm Interp Factor V Activity POC ABG pH POC ABG pCO2 POC ABG pO2 ABG pO2 ABG HCO3 ABG Base Excess ABG Hemoglobin Oxyhemoglobin Sodium Potassium Chloride Carbon Dioxide BUN Creatinine Glucose POC Glucose 124 H 171 H 120 H Lactic Acid Calcium Ionized Calcium Phosphorus Magnesium Direct Bilirubin AST ALT Alkaline Phosphatase Lactate Dehydrogenase Troponin T C-Reactive Protein Total Protein Albumin Prealbumin Triglycerides Cholesterol LDL Cholesterol Direct HDL Cholesterol 25-OH Vitamin D Total PTH Intact Urine pH Urine WBC (Auto) Urine Creatinine Urine Total Protein Fluid Total Protein Vancomycin Trough Rheumatoid Factor Complement C4 Miscellaneous Test Crossmatch 10/26/16 10/26/16 10/26/16 04:54 07:06 07:06 WBC 16.9 H RBC 3.06 L Hgb 9.1 L Hct 26.9 L MCV MCH MCHC RDW 16.9 H Plt Count Lymph % (Auto) [place] % (Auto) Lymph # [place] # Baso # Seg Neutrophils % Seg Neuts % (Manual) 71.0 H Lymphocytes % (Manual) 5.0 L Monocytes % (Manual) 12.0 H Eosinophils % (Manual) Basophils % (Manual) Nucleated RBC % Seg Neutrophils # Seg Neutrophils # Man 12.0 H Lymphocytes # (Manual) 0.8 L Monocytes # (Manual) 2.0 H Eosinophils # (Manual) Basophils # (Manual) PT INR Fibrinogen dRVVT Confirm Interp Factor V Activity POC ABG pH POC ABG pCO2 POC ABG pO2 ABG pO2 ABG HCO3 ABG Base Excess ABG Hemoglobin Oxyhemoglobin Sodium 135 L Potassium Chloride 97.1 L Carbon Dioxide BUN 73 H Creatinine 2.2 H Glucose 117 H POC Glucose 123 H Lactic Acid Calcium Ionized Calcium Phosphorus 1.70 L Magnesium Direct Bilirubin AST ALT Alkaline Phosphatase Lactate Dehydrogenase Troponin T C-Reactive Protein Total Protein Albumin Prealbumin Triglycerides Cholesterol LDL Cholesterol Direct HDL Cholesterol 25-OH Vitamin D Total PTH Intact Urine pH Urine WBC (Auto) Urine Creatinine Urine Total Protein Fluid Total Protein Vancomycin Trough Rheumatoid Factor Complement C4 Miscellaneous Test Crossmatch 10/26/16 10/26/16 10/26/16 12:12 17:29 23:42 WBC RBC Hgb Hct MCV MCH MCHC RDW Plt Count Lymph % (Auto) [place] % (Auto) Lymph # [place] # Baso # Seg Neutrophils % Seg Neuts % (Manual) Lymphocytes % (Manual) Monocytes % (Manual) Eosinophils % (Manual) Basophils % (Manual) Nucleated RBC % Seg Neutrophils # Seg Neutrophils # Man Lymphocytes # (Manual) Monocytes # (Manual) Eosinophils # (Manual) Basophils # (Manual) PT INR Fibrinogen dRVVT Confirm Interp Factor V Activity POC ABG pH POC ABG pCO2 POC ABG pO2 ABG pO2 ABG HCO3 ABG Base Excess ABG Hemoglobin Oxyhemoglobin Sodium Potassium Chloride Carbon Dioxide BUN Creatinine Glucose POC Glucose 126 H 161 H 118 H Lactic Acid Calcium Ionized Calcium Phosphorus Magnesium Direct Bilirubin AST ALT Alkaline Phosphatase Lactate Dehydrogenase Troponin T C-Reactive Protein Total Protein Albumin Prealbumin Triglycerides Cholesterol LDL Cholesterol Direct HDL Cholesterol 25-OH Vitamin D Total PTH Intact Urine pH Urine WBC (Auto) Urine Creatinine Urine Total Protein Fluid Total Protein Vancomycin Trough Rheumatoid Factor Complement C4 Miscellaneous Test Crossmatch 10/27/16 10/27/16 10/27/16 05:03 06:30 06:30 WBC 13.9 H RBC 3.09 L Hgb 9.2 L Hct 27.5 L MCV MCH MCHC RDW 17.0 H Plt Count Lymph % (Auto) [place] % (Auto) Lymph # [place] # Baso # Seg Neutrophils % Seg Neuts % (Manual) 78.0 H Lymphocytes % (Manual) Monocytes % (Manual) Eosinophils % (Manual) Basophils % (Manual) Nucleated RBC % 2.0 H Seg Neutrophils # Seg Neutrophils # Man 10.8 H Lymphocytes # (Manual) Monocytes # (Manual) 1.0 H Eosinophils # (Manual) Basophils # (Manual) PT INR Fibrinogen dRVVT Confirm Interp Factor V Activity POC ABG pH POC ABG pCO2 POC ABG pO2 ABG pO2 ABG HCO3 ABG Base Excess ABG Hemoglobin Oxyhemoglobin Sodium Potassium Chloride Carbon Dioxide BUN 40 H Creatinine 1.5 H Glucose 135 H POC Glucose 107 H Lactic Acid Calcium 8.3 L Ionized Calcium Phosphorus 1.30 L D Magnesium Direct Bilirubin AST ALT Alkaline Phosphatase Lactate Dehydrogenase Troponin T C-Reactive Protein Total Protein Albumin Prealbumin Triglycerides Cholesterol LDL Cholesterol Direct HDL Cholesterol 25-OH Vitamin D Total PTH Intact Urine pH Urine WBC (Auto) Urine Creatinine Urine Total Protein Fluid Total Protein Vancomycin Trough Rheumatoid Factor Complement C4 Miscellaneous Test Crossmatch 10/27/16 10/27/16 10/27/16 13:27 18:07 23:40 WBC RBC Hgb Hct MCV MCH MCHC RDW Plt Count Lymph % (Auto) [place] % (Auto) Lymph # [place] # Baso # Seg Neutrophils % Seg Neuts % (Manual) Lymphocytes % (Manual) Monocytes % (Manual) Eosinophils % (Manual) Basophils % (Manual) Nucleated RBC % Seg Neutrophils # Seg Neutrophils # Man Lymphocytes # (Manual) Monocytes # (Manual) Eosinophils # (Manual) Basophils # (Manual) PT INR Fibrinogen dRVVT Confirm Interp Factor V Activity POC ABG pH POC ABG pCO2 POC ABG pO2 ABG pO2 ABG HCO3 ABG Base Excess ABG Hemoglobin Oxyhemoglobin Sodium Potassium Chloride Carbon Dioxide BUN Creatinine Glucose POC Glucose 117 H 121 H 118 H Lactic Acid Calcium Ionized Calcium Phosphorus Magnesium Direct Bilirubin AST ALT Alkaline Phosphatase Lactate Dehydrogenase Troponin T C-Reactive Protein Total Protein Albumin Prealbumin Triglycerides Cholesterol LDL Cholesterol Direct HDL Cholesterol 25-OH Vitamin D Total PTH Intact Urine pH Urine WBC (Auto) Urine Creatinine Urine Total Protein Fluid Total Protein Vancomycin Trough Rheumatoid Factor Complement C4 Miscellaneous Test Crossmatch 10/28/16 10/28/16 10/28/16 05:48 06:45 06:45 WBC 14.7 H RBC 3.05 L Hgb 9.0 L Hct 26.9 L MCV MCH MCHC RDW 16.8 H Plt Count Lymph % (Auto) 8.2 L [place] % (Auto) 8.4 H Lymph # [place] # 1.2 H Baso # Seg Neutrophils % 81.9 H Seg Neuts % (Manual) Lymphocytes % (Manual) Monocytes % (Manual) Eosinophils % (Manual) Basophils % (Manual) Nucleated RBC % Seg Neutrophils # 12.1 H Seg Neutrophils # Man Lymphocytes # (Manual) Monocytes # (Manual) Eosinophils # (Manual) Basophils # (Manual) PT INR Fibrinogen dRVVT Confirm Interp Factor V Activity POC ABG pH POC ABG pCO2 POC ABG pO2 ABG pO2 ABG HCO3 ABG Base Excess ABG Hemoglobin Oxyhemoglobin Sodium Potassium Chloride Carbon Dioxide BUN 60 H Creatinine 1.9 H Glucose 120 H POC Glucose 114 H Lactic Acid Calcium Ionized Calcium Phosphorus Magnesium Direct Bilirubin AST ALT Alkaline Phosphatase Lactate Dehydrogenase Troponin T C-Reactive Protein Total Protein Albumin Prealbumin Triglycerides Cholesterol LDL Cholesterol Direct HDL Cholesterol 25-OH Vitamin D Total PTH Intact Urine pH Urine WBC (Auto) Urine Creatinine Urine Total Protein Fluid Total Protein Vancomycin Trough Rheumatoid Factor Complement C4 Miscellaneous Test Crossmatch 10/28/16 10/28/16 10/29/16 17:08 23:50 05:10 WBC RBC Hgb Hct MCV MCH MCHC RDW Plt Count Lymph % (Auto) [place] % (Auto) Lymph # [place] # Baso # Seg Neutrophils % Seg Neuts % (Manual) Lymphocytes % (Manual) Monocytes % (Manual) Eosinophils % (Manual) Basophils % (Manual) Nucleated RBC % Seg Neutrophils # Seg Neutrophils # Man Lymphocytes # (Manual) Monocytes # (Manual) Eosinophils # (Manual) Basophils # (Manual) PT INR Fibrinogen dRVVT Confirm Interp Factor V Activity POC ABG pH POC ABG pCO2 POC ABG pO2 ABG pO2 ABG HCO3 ABG Base Excess ABG Hemoglobin Oxyhemoglobin Sodium Potassium Chloride Carbon Dioxide BUN Creatinine Glucose POC Glucose 109 H 110 H 124 H Lactic Acid Calcium Ionized Calcium Phosphorus Magnesium Direct Bilirubin AST ALT Alkaline Phosphatase Lactate Dehydrogenase Troponin T C-Reactive Protein Total Protein Albumin Prealbumin Triglycerides Cholesterol LDL Cholesterol Direct HDL Cholesterol 25-OH Vitamin D Total PTH Intact Urine pH Urine WBC (Auto) Urine Creatinine Urine Total Protein Fluid Total Protein Vancomycin Trough Rheumatoid Factor Complement C4 Miscellaneous Test Crossmatch 10/29/16 10/29/16 10/29/16 07:45 07:45 12:19 WBC 14.7 H RBC 3.15 L Hgb 9.3 L Hct 28.9 L MCV MCH MCHC RDW 17.0 H Plt Count Lymph % (Auto) 11.9 L [place] % (Auto) 8.6 H Lymph # [place] # 1.3 H Baso # Seg Neutrophils % 78.1 H Seg Neuts % (Manual) Lymphocytes % (Manual) Monocytes % (Manual) Eosinophils % (Manual) Basophils % (Manual) Nucleated RBC % Seg Neutrophils # 11.4 H Seg Neutrophils # Man Lymphocytes # (Manual) Monocytes # (Manual) Eosinophils # (Manual) Basophils # (Manual) PT INR Fibrinogen dRVVT Confirm Interp Factor V Activity POC ABG pH POC ABG pCO2 POC ABG pO2 ABG pO2 ABG HCO3 ABG Base Excess ABG Hemoglobin Oxyhemoglobin Sodium Potassium 5.1 H Chloride Carbon Dioxide 19 L BUN 78 H Creatinine 2.2 H Glucose 116 H POC Glucose 118 H Lactic Acid Calcium Ionized Calcium Phosphorus Magnesium Direct Bilirubin AST ALT Alkaline Phosphatase Lactate Dehydrogenase Troponin T C-Reactive Protein Total Protein Albumin Prealbumin Triglycerides Cholesterol LDL Cholesterol Direct HDL Cholesterol 25-OH Vitamin D Total PTH Intact Urine pH Urine WBC (Auto) Urine Creatinine Urine Total Protein Fluid Total Protein Vancomycin Trough Rheumatoid Factor Complement C4 Miscellaneous Test Crossmatch 10/29/16 10/30/16 10/30/16 17:49 01:52 03:28 WBC RBC Hgb Hct MCV MCH MCHC RDW Plt Count Lymph % (Auto) [place] % (Auto) Lymph # [place] # Baso # Seg Neutrophils % Seg Neuts % (Manual) Lymphocytes % (Manual) Monocytes % (Manual) Eosinophils % (Manual) Basophils % (Manual) Nucleated RBC % Seg Neutrophils # Seg Neutrophils # Man Lymphocytes # (Manual) Monocytes # (Manual) Eosinophils # (Manual) Basophils # (Manual) PT INR Fibrinogen dRVVT Confirm Interp Factor V Activity POC ABG pH POC ABG pCO2 POC ABG pO2 ABG pO2 ABG HCO3 ABG Base Excess ABG Hemoglobin Oxyhemoglobin Sodium Potassium 5.4 H Chloride 97.5 L Carbon Dioxide 19 L BUN 90 H Creatinine 2.5 H Glucose POC Glucose 120 H 129 H Lactic Acid Calcium Ionized Calcium Phosphorus 5.20 H Magnesium Direct Bilirubin AST ALT Alkaline Phosphatase Lactate Dehydrogenase Troponin T C-Reactive Protein Total Protein Albumin Prealbumin Triglycerides Cholesterol LDL Cholesterol Direct HDL Cholesterol 25-OH Vitamin D Total PTH Intact Urine pH Urine WBC (Auto) Urine Creatinine Urine Total Protein Fluid Total Protein Vancomycin Trough Rheumatoid Factor Complement C4 Miscellaneous Test Crossmatch 10/30/16 10/30/16 10/30/16 03:28 08:19 08:19 WBC 11.6 H 15.9 H RBC 2.75 L 2.82 L Hgb 7.9 L 8.3 L Hct 24.2 L 25.2 L MCV MCH MCHC RDW 16.7 H 17.2 H Plt Count Lymph % (Auto) [place] % (Auto) 9.8 H Lymph # [place] # 1.1 H Baso # Seg Neutrophils % 74.2 H Seg Neuts % (Manual) Lymphocytes % (Manual) Monocytes % (Manual) Eosinophils % (Manual) Basophils % (Manual) Nucleated RBC % Seg Neutrophils # 8.6 H Seg Neutrophils # Man Lymphocytes # (Manual) Monocytes # (Manual) Eosinophils # (Manual) Basophils # (Manual) PT INR Fibrinogen dRVVT Confirm Interp Factor V Activity POC ABG pH POC ABG pCO2 POC ABG pO2 ABG pO2 ABG HCO3 ABG Base Excess ABG Hemoglobin Oxyhemoglobin Sodium Potassium 5.3 H Chloride 97.4 L Carbon Dioxide 19 L BUN 93 H Creatinine 2.6 H Glucose POC Glucose Lactic Acid Calcium Ionized Calcium Phosphorus Magnesium Direct Bilirubin AST ALT Alkaline Phosphatase Lactate Dehydrogenase Troponin T C-Reactive Protein Total Protein Albumin Prealbumin Triglycerides Cholesterol LDL Cholesterol Direct HDL Cholesterol 25-OH Vitamin D Total PTH Intact Urine pH Urine WBC (Auto) Urine Creatinine Urine Total Protein Fluid Total Protein Vancomycin Trough Rheumatoid Factor Complement C4 Miscellaneous Test Crossmatch 10/30/16 10/30/16 10/31/16 17:11 23:56 00:40 WBC RBC Hgb Hct MCV MCH MCHC RDW Plt Count Lymph % (Auto) [place] % (Auto) Lymph # [place] # Baso # Seg Neutrophils % Seg Neuts % (Manual) Lymphocytes % (Manual) Monocytes % (Manual) Eosinophils % (Manual) Basophils % (Manual) Nucleated RBC % Seg Neutrophils # Seg Neutrophils # Man Lymphocytes # (Manual) Monocytes # (Manual) Eosinophils # (Manual) Basophils # (Manual) PT INR Fibrinogen dRVVT Confirm Interp Factor V Activity POC ABG pH POC ABG pCO2 POC ABG pO2 ABG pO2 ABG HCO3 ABG Base Excess ABG Hemoglobin Oxyhemoglobin Sodium Potassium Chloride Carbon Dioxide BUN Creatinine Glucose POC Glucose 106 H 117 H 120 H Lactic Acid Calcium Ionized Calcium Phosphorus Magnesium Direct Bilirubin AST ALT Alkaline Phosphatase Lactate Dehydrogenase Troponin T C-Reactive Protein Total Protein Albumin Prealbumin Triglycerides Cholesterol LDL Cholesterol Direct HDL Cholesterol 25-OH Vitamin D Total PTH Intact Urine pH Urine WBC (Auto) Urine Creatinine Urine Total Protein Fluid Total Protein Vancomycin Trough Rheumatoid Factor Complement C4 Miscellaneous Test Crossmatch 10/31/16 10/31/16 10/31/16 05:43 07:15 07:15 WBC 12.1 H RBC 2.63 L Hgb 7.7 L Hct 23.3 L MCV MCH MCHC RDW 16.7 H Plt Count Lymph % (Auto) 11.7 L [place] % (Auto) 7.7 H Lymph # [place] # 0.9 H Baso # Seg Neutrophils % 78.0 H Seg Neuts % (Manual) Lymphocytes % (Manual) Monocytes % (Manual) Eosinophils % (Manual) Basophils % (Manual) Nucleated RBC % Seg Neutrophils # 9.4 H Seg Neutrophils # Man Lymphocytes # (Manual) Monocytes # (Manual) Eosinophils # (Manual) Basophils # (Manual) PT INR Fibrinogen dRVVT Confirm Interp Factor V Activity POC ABG pH POC ABG pCO2 POC ABG pO2 ABG pO2 ABG HCO3 ABG Base Excess ABG Hemoglobin Oxyhemoglobin Sodium Potassium Chloride 96.4 L Carbon Dioxide 21 L BUN 99 H Creatinine 2.6 H Glucose 144 H POC Glucose 125 H Lactic Acid Calcium Ionized Calcium Phosphorus 4.80 H Magnesium Direct Bilirubin AST ALT Alkaline Phosphatase Lactate Dehydrogenase Troponin T C-Reactive Protein Total Protein Albumin Prealbumin Triglycerides Cholesterol LDL Cholesterol Direct HDL Cholesterol 25-OH Vitamin D Total PTH Intact Urine pH Urine WBC (Auto) Urine Creatinine Urine Total Protein Fluid Total Protein Vancomycin Trough Rheumatoid Factor Complement C4 Miscellaneous Test Crossmatch 10/31/16 10/31/16 11/01/16 11:46 18:34 00:20 WBC RBC Hgb Hct MCV MCH MCHC RDW Plt Count Lymph % (Auto) [place] % (Auto) Lymph # [place] # Baso # Seg Neutrophils % Seg Neuts % (Manual) Lymphocytes % (Manual) Monocytes % (Manual) Eosinophils % (Manual) Basophils % (Manual) Nucleated RBC % Seg Neutrophils # Seg Neutrophils # Man Lymphocytes # (Manual) Monocytes # (Manual) Eosinophils # (Manual) Basophils # (Manual) PT INR Fibrinogen dRVVT Confirm Interp Factor V Activity POC ABG pH POC ABG pCO2 POC ABG pO2 ABG pO2 ABG HCO3 ABG Base Excess ABG Hemoglobin Oxyhemoglobin Sodium Potassium Chloride Carbon Dioxide BUN Creatinine Glucose POC Glucose 159 H 140 H 132 H Lactic Acid Calcium Ionized Calcium Phosphorus Magnesium Direct Bilirubin AST ALT Alkaline Phosphatase Lactate Dehydrogenase Troponin T C-Reactive Protein Total Protein Albumin Prealbumin Triglycerides Cholesterol LDL Cholesterol Direct HDL Cholesterol 25-OH Vitamin D Total PTH Intact Urine pH Urine WBC (Auto) Urine Creatinine Urine Total Protein Fluid Total Protein Vancomycin Trough Rheumatoid Factor Complement C4 Miscellaneous Test Crossmatch 11/01/16 11/01/16 11/01/16 04:55 04:55 06:11 WBC 11.2 H RBC 2.68 L Hgb 7.5 L Hct 23.7 L MCV MCH MCHC RDW 16.1 H Plt Count Lymph % (Auto) [place] % (Auto) 9.8 H Lymph # [place] # 1.1 H Baso # Seg Neutrophils % 70.8 H Seg Neuts % (Manual) Lymphocytes % (Manual) Monocytes % (Manual) Eosinophils % (Manual) Basophils % (Manual) Nucleated RBC % Seg Neutrophils # 7.9 H Seg Neutrophils # Man Lymphocytes # (Manual) Monocytes # (Manual) Eosinophils # (Manual) Basophils # (Manual) PT INR Fibrinogen dRVVT Confirm Interp Factor V Activity POC ABG pH POC ABG pCO2 POC ABG pO2 ABG pO2 ABG HCO3 ABG Base Excess ABG Hemoglobin Oxyhemoglobin Sodium Potassium 3.3 L D Chloride Carbon Dioxide BUN 61 H Creatinine 1.9 H Glucose 114 H POC Glucose 115 H Lactic Acid Calcium Ionized Calcium Phosphorus 1.80 L D Magnesium Direct Bilirubin AST ALT Alkaline Phosphatase Lactate Dehydrogenase Troponin T C-Reactive Protein Total Protein Albumin Prealbumin Triglycerides Cholesterol LDL Cholesterol Direct HDL Cholesterol 25-OH Vitamin D Total PTH Intact Urine pH Urine WBC (Auto) Urine Creatinine Urine Total Protein Fluid Total Protein Vancomycin Trough Rheumatoid Factor Complement C4 Miscellaneous Test Crossmatch 11/01/16 11/01/16 11/01/16 12:29 18:23 23:58 WBC RBC Hgb Hct MCV MCH MCHC RDW Plt Count Lymph % (Auto) [place] % (Auto) Lymph # [place] # Baso # Seg Neutrophils % Seg Neuts % (Manual) Lymphocytes % (Manual) Monocytes % (Manual) Eosinophils % (Manual) Basophils % (Manual) Nucleated RBC % Seg Neutrophils # Seg Neutrophils # Man Lymphocytes # (Manual) Monocytes # (Manual) Eosinophils # (Manual) Basophils # (Manual) PT INR Fibrinogen dRVVT Confirm Interp Factor V Activity POC ABG pH POC ABG pCO2 POC ABG pO2 ABG pO2 ABG HCO3 ABG Base Excess ABG Hemoglobin Oxyhemoglobin Sodium Potassium Chloride Carbon Dioxide BUN Creatinine Glucose POC Glucose 142 H 143 H 128 H Lactic Acid Calcium Ionized Calcium Phosphorus Magnesium Direct Bilirubin AST ALT Alkaline Phosphatase Lactate Dehydrogenase Troponin T C-Reactive Protein Total Protein Albumin Prealbumin Triglycerides Cholesterol LDL Cholesterol Direct HDL Cholesterol 25-OH Vitamin D Total PTH Intact Urine pH Urine WBC (Auto) Urine Creatinine Urine Total Protein Fluid Total Protein Vancomycin Trough Rheumatoid Factor Complement C4 Miscellaneous Test Crossmatch 11/02/16 11/02/16 11/02/16 04:16 05:29 11:58 WBC RBC Hgb Hct MCV MCH MCHC RDW Plt Count Lymph % (Auto) [place] % (Auto) Lymph # [place] # Baso # Seg Neutrophils % Seg Neuts % (Manual) Lymphocytes % (Manual) Monocytes % (Manual) Eosinophils % (Manual) Basophils % (Manual) Nucleated RBC % Seg Neutrophils # Seg Neutrophils # Man Lymphocytes # (Manual) Monocytes # (Manual) Eosinophils # (Manual) Basophils # (Manual) PT INR Fibrinogen dRVVT Confirm Interp Factor V Activity POC ABG pH POC ABG pCO2 POC ABG pO2 ABG pO2 ABG HCO3 ABG Base Excess ABG Hemoglobin Oxyhemoglobin Sodium Potassium 3.1 L Chloride Carbon Dioxide BUN 73 H Creatinine 2.3 H Glucose 112 H POC Glucose 135 H 149 H Lactic Acid Calcium Ionized Calcium Phosphorus Magnesium Direct Bilirubin AST ALT Alkaline Phosphatase Lactate Dehydrogenase Troponin T C-Reactive Protein Total Protein Albumin Prealbumin Triglycerides Cholesterol LDL Cholesterol Direct HDL Cholesterol 25-OH Vitamin D Total PTH Intact Urine pH Urine WBC (Auto) Urine Creatinine Urine Total Protein Fluid Total Protein Vancomycin Trough Rheumatoid Factor Complement C4 Miscellaneous Test Crossmatch 11/02/16 11/02/16 11/03/16 17:42 22:54 06:00 WBC RBC Hgb Hct MCV MCH MCHC RDW Plt Count Lymph % (Auto) [place] % (Auto) Lymph # [place] # Baso # Seg Neutrophils % Seg Neuts % (Manual) Lymphocytes % (Manual) Monocytes % (Manual) Eosinophils % (Manual) Basophils % (Manual) Nucleated RBC % Seg Neutrophils # Seg Neutrophils # Man Lymphocytes # (Manual) Monocytes # (Manual) Eosinophils # (Manual) Basophils # (Manual) PT INR Fibrinogen dRVVT Confirm Interp Factor V Activity POC ABG pH POC ABG pCO2 POC ABG pO2 ABG pO2 ABG HCO3 ABG Base Excess ABG Hemoglobin Oxyhemoglobin Sodium Potassium Chloride 96.7 L Carbon Dioxide BUN 41 H Creatinine 1.5 H Glucose 145 H POC Glucose 182 H 115 H Lactic Acid Calcium Ionized Calcium Phosphorus 1.60 L D Magnesium 1.50 L Direct Bilirubin AST ALT Alkaline Phosphatase Lactate Dehydrogenase Troponin T C-Reactive Protein Total Protein Albumin Prealbumin Triglycerides Cholesterol LDL Cholesterol Direct HDL Cholesterol 25-OH Vitamin D Total PTH Intact Urine pH Urine WBC (Auto) Urine Creatinine Urine Total Protein Fluid Total Protein Vancomycin Trough Rheumatoid Factor Complement C4 Miscellaneous Test Crossmatch 11/03/16 11/03/16 11/03/16 11:53 17:45 23:37 WBC RBC Hgb Hct MCV MCH MCHC RDW Plt Count Lymph % (Auto) [place] % (Auto) Lymph # [place] # Baso # Seg Neutrophils % Seg Neuts % (Manual) Lymphocytes % (Manual) Monocytes % (Manual) Eosinophils % (Manual) Basophils % (Manual) Nucleated RBC % Seg Neutrophils # Seg Neutrophils # Man Lymphocytes # (Manual) Monocytes # (Manual) Eosinophils # (Manual) Basophils # (Manual) PT INR Fibrinogen dRVVT Confirm Interp Factor V Activity POC ABG pH POC ABG pCO2 POC ABG pO2 ABG pO2 ABG HCO3 ABG Base Excess ABG Hemoglobin Oxyhemoglobin Sodium Potassium Chloride Carbon Dioxide BUN Creatinine Glucose POC Glucose 131 H 134 H 113 H Lactic Acid Calcium Ionized Calcium Phosphorus Magnesium Direct Bilirubin AST ALT Alkaline Phosphatase Lactate Dehydrogenase Troponin T C-Reactive Protein Total Protein Albumin Prealbumin Triglycerides Cholesterol LDL Cholesterol Direct HDL Cholesterol 25-OH Vitamin D Total PTH Intact Urine pH Urine WBC (Auto) Urine Creatinine Urine Total Protein Fluid Total Protein Vancomycin Trough Rheumatoid Factor Complement C4 Miscellaneous Test Crossmatch 11/04/16 11/04/16 11/04/16 05:41 06:00 12:10 WBC RBC Hgb Hct MCV MCH MCHC RDW Plt Count Lymph % (Auto) [place] % (Auto) Lymph # [place] # Baso # Seg Neutrophils % Seg Neuts % (Manual) Lymphocytes % (Manual) Monocytes % (Manual) Eosinophils % (Manual) Basophils % (Manual) Nucleated RBC % Seg Neutrophils # Seg Neutrophils # Man Lymphocytes # (Manual) Monocytes # (Manual) Eosinophils # (Manual) Basophils # (Manual) PT INR Fibrinogen dRVVT Confirm Interp Factor V Activity POC ABG pH POC ABG pCO2 POC ABG pO2 ABG pO2 ABG HCO3 ABG Base Excess ABG Hemoglobin Oxyhemoglobin Sodium Potassium Chloride 96.7 L Carbon Dioxide BUN 52 H Creatinine 1.9 H Glucose 126 H POC Glucose 137 H 191 H Lactic Acid Calcium Ionized Calcium Phosphorus Magnesium Direct Bilirubin AST ALT Alkaline Phosphatase Lactate Dehydrogenase Troponin T C-Reactive Protein Total Protein Albumin Prealbumin Triglycerides Cholesterol LDL Cholesterol Direct HDL Cholesterol 25-OH Vitamin D Total PTH Intact Urine pH Urine WBC (Auto) Urine Creatinine Urine Total Protein Fluid Total Protein Vancomycin Trough Rheumatoid Factor Complement C4 Miscellaneous Test Crossmatch 11/04/16 11/05/16 11/05/16 22:57 03:10 05:10 WBC RBC Hgb Hct MCV MCH MCHC RDW Plt Count Lymph % (Auto) [place] % (Auto) Lymph # [place] # Baso # Seg Neutrophils % Seg Neuts % (Manual) Lymphocytes % (Manual) Monocytes % (Manual) Eosinophils % (Manual) Basophils % (Manual) Nucleated RBC % Seg Neutrophils # Seg Neutrophils # Man Lymphocytes # (Manual) Monocytes # (Manual) Eosinophils # (Manual) Basophils # (Manual) PT INR Fibrinogen dRVVT Confirm Interp Factor V Activity POC ABG pH POC ABG pCO2 POC ABG pO2 ABG pO2 ABG HCO3 ABG Base Excess ABG Hemoglobin Oxyhemoglobin Sodium 136 L Potassium Chloride 97.2 L Carbon Dioxide BUN 32 H Creatinine 1.3 H Glucose 123 H POC Glucose 125 H 108 H Lactic Acid Calcium 7.8 L Ionized Calcium Phosphorus Magnesium Direct Bilirubin AST ALT Alkaline Phosphatase Lactate Dehydrogenase Troponin T C-Reactive Protein Total Protein Albumin Prealbumin Triglycerides Cholesterol LDL Cholesterol Direct HDL Cholesterol 25-OH Vitamin D Total PTH Intact Urine pH Urine WBC (Auto) Urine Creatinine Urine Total Protein Fluid Total Protein Vancomycin Trough Rheumatoid Factor Complement C4 Miscellaneous Test Crossmatch 11/05/16 11/05/16 11/05/16 12:23 13:09 13:25 WBC RBC Hgb Hct MCV MCH MCHC RDW Plt Count Lymph % (Auto) [place] % (Auto) Lymph # [place] # Baso # Seg Neutrophils % Seg Neuts % (Manual) Lymphocytes % (Manual) Monocytes % (Manual) Eosinophils % (Manual) Basophils % (Manual) Nucleated RBC % Seg Neutrophils # Seg Neutrophils # Man Lymphocytes # (Manual) Monocytes # (Manual) Eosinophils # (Manual) Basophils # (Manual) PT INR Fibrinogen dRVVT Confirm Interp Factor V Activity POC ABG pH POC ABG pCO2 POC ABG pO2 ABG pO2 ABG HCO3 ABG Base Excess ABG Hemoglobin Oxyhemoglobin Sodium Potassium Chloride Carbon Dioxide BUN Creatinine Glucose POC Glucose 124 H Lactic Acid Calcium Ionized Calcium Phosphorus Magnesium Direct Bilirubin AST ALT Alkaline Phosphatase Lactate Dehydrogenase Troponin T C-Reactive Protein 11.40 H Total Protein Albumin Prealbumin Triglycerides Cholesterol LDL Cholesterol Direct HDL Cholesterol 25-OH Vitamin D Total PTH Intact Urine pH 9.0 H Urine WBC (Auto) Urine Creatinine Urine Total Protein Fluid Total Protein Vancomycin Trough Rheumatoid Factor Complement C4 Miscellaneous Test Crossmatch 11/05/16 11/05/16 11/05/16 13:25 17:54 23:42 WBC RBC Hgb Hct MCV MCH MCHC RDW Plt Count Lymph % (Auto) [place] % (Auto) Lymph # [place] # Baso # Seg Neutrophils % Seg Neuts % (Manual) Lymphocytes % (Manual) Monocytes % (Manual) Eosinophils % (Manual) Basophils % (Manual) Nucleated RBC % Seg Neutrophils # Seg Neutrophils # Man Lymphocytes # (Manual) Monocytes # (Manual) Eosinophils # (Manual) Basophils # (Manual) PT INR Fibrinogen dRVVT Confirm Interp Factor V Activity POC ABG pH POC ABG pCO2 POC ABG pO2 ABG pO2 ABG HCO3 ABG Base Excess ABG Hemoglobin Oxyhemoglobin Sodium Potassium Chloride Carbon Dioxide BUN Creatinine Glucose POC Glucose 114 H 134 H Lactic Acid Calcium Ionized Calcium Phosphorus Magnesium Direct Bilirubin AST ALT Alkaline Phosphatase Lactate Dehydrogenase Troponin T C-Reactive Protein Total Protein Albumin Prealbumin Triglycerides Cholesterol LDL Cholesterol Direct HDL Cholesterol 25-OH Vitamin D Total PTH Intact Urine pH Urine WBC (Auto) Urine Creatinine Urine Total Protein Fluid Total Protein Vancomycin Trough Rheumatoid Factor Complement C4 Miscellaneous Test Flexitest 1 H Crossmatch 11/06/16 11/06/16 11/06/16 04:56 06:25 06:25 WBC RBC 2.50 L Hgb 7.3 L Hct 22.5 L MCV MCH MCHC RDW 16.9 H Plt Count Lymph % (Auto) [place] % (Auto) 10.5 H Lymph # [place] # 1.1 H Baso # Seg Neutrophils % Seg Neuts % (Manual) Lymphocytes % (Manual) Monocytes % (Manual) Eosinophils % (Manual) Basophils % (Manual) Nucleated RBC % Seg Neutrophils # Seg Neutrophils # Man Lymphocytes # (Manual) Monocytes # (Manual) Eosinophils # (Manual) Basophils # (Manual) PT INR Fibrinogen dRVVT Confirm Interp Factor V Activity POC ABG pH POC ABG pCO2 POC ABG pO2 ABG pO2 ABG HCO3 ABG Base Excess ABG Hemoglobin Oxyhemoglobin Sodium Potassium 5.1 H Chloride 95.9 L Carbon Dioxide BUN 52 H Creatinine 1.8 H Glucose 117 H POC Glucose 120 H Lactic Acid Calcium Ionized Calcium Phosphorus Magnesium Direct Bilirubin AST 103 H ALT 77 H Alkaline Phosphatase 285 H Lactate Dehydrogenase Troponin T C-Reactive Protein Total Protein 6.2 L Albumin 1.8 L Prealbumin 0.180 L Triglycerides Cholesterol LDL Cholesterol Direct HDL Cholesterol 25-OH Vitamin D Total PTH Intact Urine pH Urine WBC (Auto) Urine Creatinine Urine Total Protein Fluid Total Protein Vancomycin Trough Rheumatoid Factor Complement C4 Miscellaneous Test Crossmatch 11/06/16 11/06/16 11/06/16 11:56 17:14 23:52 WBC RBC Hgb Hct MCV MCH MCHC RDW Plt Count Lymph % (Auto) [place] % (Auto) Lymph # [place] # Baso # Seg Neutrophils % Seg Neuts % (Manual) Lymphocytes % (Manual) Monocytes % (Manual) Eosinophils % (Manual) Basophils % (Manual) Nucleated RBC % Seg Neutrophils # Seg Neutrophils # Man Lymphocytes # (Manual) Monocytes # (Manual) Eosinophils # (Manual) Basophils # (Manual) PT INR Fibrinogen dRVVT Confirm Interp Factor V Activity POC ABG pH POC ABG pCO2 POC ABG pO2 ABG pO2 ABG HCO3 ABG Base Excess ABG Hemoglobin Oxyhemoglobin Sodium Potassium Chloride Carbon Dioxide BUN Creatinine Glucose POC Glucose 141 H 125 H 130 H Lactic Acid Calcium Ionized Calcium Phosphorus Magnesium Direct Bilirubin AST ALT Alkaline Phosphatase Lactate Dehydrogenase Troponin T C-Reactive Protein Total Protein Albumin Prealbumin Triglycerides Cholesterol LDL Cholesterol Direct HDL Cholesterol 25-OH Vitamin D Total PTH Intact Urine pH Urine WBC (Auto) Urine Creatinine Urine Total Protein Fluid Total Protein Vancomycin Trough Rheumatoid Factor Complement C4 Miscellaneous Test Crossmatch 11/07/16 11/07/16 11/07/16 06:30 06:30 09:37 WBC RBC 2.18 L Hgb 6.3 L Hct 19.7 L* MCV MCH MCHC RDW 16.8 H Plt Count Lymph % (Auto) [place] % (Auto) 10.0 H Lymph # [place] # 1.0 H Baso # Seg Neutrophils % Seg Neuts % (Manual) Lymphocytes % (Manual) Monocytes % (Manual) Eosinophils % (Manual) Basophils % (Manual) Nucleated RBC % Seg Neutrophils # Seg Neutrophils # Man Lymphocytes # (Manual) Monocytes # (Manual) Eosinophils # (Manual) Basophils # (Manual) PT INR Fibrinogen dRVVT Confirm Interp Factor V Activity POC ABG pH POC ABG pCO2 POC ABG pO2 ABG pO2 ABG HCO3 ABG Base Excess ABG Hemoglobin Oxyhemoglobin Sodium 135 L Potassium Chloride 95.6 L Carbon Dioxide BUN 70 H Creatinine 2.0 H Glucose 126 H POC Glucose Lactic Acid Calcium Ionized Calcium Phosphorus Magnesium Direct Bilirubin AST ALT Alkaline Phosphatase Lactate Dehydrogenase Troponin T C-Reactive Protein Total Protein Albumin Prealbumin Triglycerides Cholesterol LDL Cholesterol Direct HDL Cholesterol 25-OH Vitamin D Total PTH Intact Urine pH Urine WBC (Auto) Urine Creatinine Urine Total Protein Fluid Total Protein Vancomycin Trough Rheumatoid Factor Complement C4 Miscellaneous Test Crossmatch See Detail 11/07/16 11/07/16 11/07/16 12:52 18:51 21:26 WBC RBC Hgb Hct MCV MCH MCHC RDW Plt Count Lymph % (Auto) [place] % (Auto) Lymph # [place] # Baso # Seg Neutrophils % Seg Neuts % (Manual) Lymphocytes % (Manual) Monocytes % (Manual) Eosinophils % (Manual) Basophils % (Manual) Nucleated RBC % Seg Neutrophils # Seg Neutrophils # Man Lymphocytes # (Manual) Monocytes # (Manual) Eosinophils # (Manual) Basophils # (Manual) PT INR Fibrinogen dRVVT Confirm Interp Factor V Activity POC ABG pH 7.523 H POC ABG pCO2 34.6 L POC ABG pO2 53 L ABG pO2 ABG HCO3 ABG Base Excess ABG Hemoglobin Oxyhemoglobin Sodium Potassium Chloride Carbon Dioxide BUN Creatinine Glucose POC Glucose 142 H 155 H Lactic Acid Calcium Ionized Calcium Phosphorus Magnesium Direct Bilirubin AST ALT Alkaline Phosphatase Lactate Dehydrogenase Troponin T C-Reactive Protein Total Protein Albumin Prealbumin Triglycerides Cholesterol LDL Cholesterol Direct HDL Cholesterol 25-OH Vitamin D Total PTH Intact Urine pH Urine WBC (Auto) Urine Creatinine Urine Total Protein Fluid Total Protein Vancomycin Trough Rheumatoid Factor Complement C4 Miscellaneous Test Crossmatch 11/07/16 11/08/16 11/08/16 21:34 13:03 23:37 WBC RBC 2.63 L Hgb 7.7 L Hct 22.7 L MCV MCH MCHC RDW 17.0 H Plt Count Lymph % (Auto) [place] % (Auto) Lymph # [place] # Baso # Seg Neutrophils % Seg Neuts % (Manual) Lymphocytes % (Manual) Monocytes % (Manual) Eosinophils % (Manual) Basophils % (Manual) Nucleated RBC % Seg Neutrophils # Seg Neutrophils # Man Lymphocytes # (Manual) Monocytes # (Manual) Eosinophils # (Manual) Basophils # (Manual) PT INR Fibrinogen dRVVT Confirm Interp Factor V Activity POC ABG pH 7.478 H POC ABG pCO2 34.0 L POC ABG pO2 50 L ABG pO2 ABG HCO3 ABG Base Excess ABG Hemoglobin Oxyhemoglobin Sodium Potassium Chloride Carbon Dioxide BUN Creatinine Glucose POC Glucose 113 H Lactic Acid Calcium Ionized Calcium Phosphorus Magnesium Direct Bilirubin AST ALT Alkaline Phosphatase Lactate Dehydrogenase Troponin T C-Reactive Protein Total Protein Albumin Prealbumin Triglycerides Cholesterol LDL Cholesterol Direct HDL Cholesterol 25-OH Vitamin D Total PTH Intact Urine pH Urine WBC (Auto) Urine Creatinine Urine Total Protein Fluid Total Protein Vancomycin Trough Rheumatoid Factor Complement C4 Miscellaneous Test Crossmatch 11/09/16 11/09/16 11/09/16 04:35 10:15 18:21 WBC RBC 2.68 L Hgb 7.8 L Hct 23.3 L MCV MCH MCHC RDW 17.0 H Plt Count Lymph % (Auto) [place] % (Auto) 12.1 H Lymph # [place] # 1.1 H Baso # Seg Neutrophils % Seg Neuts % (Manual) Lymphocytes % (Manual) Monocytes % (Manual) Eosinophils % (Manual) Basophils % (Manual) Nucleated RBC % Seg Neutrophils # Seg Neutrophils # Man Lymphocytes # (Manual) Monocytes # (Manual) Eosinophils # (Manual) Basophils # (Manual) PT INR Fibrinogen dRVVT Confirm Interp Factor V Activity POC ABG pH POC ABG pCO2 POC ABG pO2 ABG pO2 ABG HCO3 ABG Base Excess ABG Hemoglobin Oxyhemoglobin Sodium Potassium Chloride Carbon Dioxide BUN 51 H Creatinine 1.8 H Glucose POC Glucose 60 L Lactic Acid Calcium 8.3 L Ionized Calcium Phosphorus Magnesium Direct Bilirubin AST ALT Alkaline Phosphatase Lactate Dehydrogenase Troponin T C-Reactive Protein Total Protein Albumin Prealbumin Triglycerides Cholesterol LDL Cholesterol Direct HDL Cholesterol 25-OH Vitamin D Total PTH Intact Urine pH Urine WBC (Auto) Urine Creatinine Urine Total Protein Fluid Total Protein Vancomycin Trough Rheumatoid Factor Complement C4 Miscellaneous Test Crossmatch 11/09/16 11/10/16 11/10/16 18:55 07:00 11:51 WBC RBC Hgb Hct MCV MCH MCHC RDW Plt Count Lymph % (Auto) [place] % (Auto) Lymph # [place] # Baso # Seg Neutrophils % Seg Neuts % (Manual) Lymphocytes % (Manual) Monocytes % (Manual) Eosinophils % (Manual) Basophils % (Manual) Nucleated RBC % Seg Neutrophils # Seg Neutrophils # Man Lymphocytes # (Manual) Monocytes # (Manual) Eosinophils # (Manual) Basophils # (Manual) PT INR Fibrinogen dRVVT Confirm Interp Factor V Activity POC ABG pH POC ABG pCO2 POC ABG pO2 ABG pO2 ABG HCO3 ABG Base Excess ABG Hemoglobin Oxyhemoglobin Sodium Potassium 3.0 L D Chloride 97.4 L Carbon Dioxide BUN 28 H Creatinine 1.3 H Glucose POC Glucose 68 L 120 H Lactic Acid Calcium 7.8 L Ionized Calcium Phosphorus Magnesium Direct Bilirubin AST ALT Alkaline Phosphatase Lactate Dehydrogenase Troponin T C-Reactive Protein Total Protein Albumin Prealbumin Triglycerides Cholesterol LDL Cholesterol Direct HDL Cholesterol 25-OH Vitamin D Total PTH Intact Urine pH Urine WBC (Auto) Urine Creatinine Urine Total Protein Fluid Total Protein Vancomycin Trough Rheumatoid Factor Complement C4 Miscellaneous Test Crossmatch 11/10/16 11/11/16 11/11/16 14:20 06:59 06:59 WBC RBC 2.81 L Hgb 8.1 L Hct 24.4 L MCV MCH MCHC RDW 16.4 H Plt Count Lymph % (Auto) [place] % (Auto) 10.8 H Lymph # [place] # 1.0 H Baso # Seg Neutrophils % Seg Neuts % (Manual) Lymphocytes % (Manual) Monocytes % (Manual) Eosinophils % (Manual) Basophils % (Manual) Nucleated RBC % Seg Neutrophils # Seg Neutrophils # Man Lymphocytes # (Manual) Monocytes # (Manual) Eosinophils # (Manual) Basophils # (Manual) PT INR Fibrinogen dRVVT Confirm Interp Factor V Activity POC ABG pH POC ABG pCO2 POC ABG pO2 ABG pO2 ABG HCO3 ABG Base Excess ABG Hemoglobin Oxyhemoglobin Sodium Potassium Chloride Carbon Dioxide BUN Creatinine Glucose POC Glucose Lactic Acid Calcium Ionized Calcium Phosphorus Magnesium Direct Bilirubin AST ALT Alkaline Phosphatase Lactate Dehydrogenase 196 H Troponin T C-Reactive Protein Total Protein 6.1 L Albumin Prealbumin Triglycerides Cholesterol LDL Cholesterol Direct HDL Cholesterol 25-OH Vitamin D Total PTH Intact Urine pH Urine WBC (Auto) Urine Creatinine Urine Total Protein Fluid Total Protein < 3.0 L Vancomycin Trough Rheumatoid Factor Complement C4 Miscellaneous Test Crossmatch 09/11/11/16 11/12/16 06:59 09:50 04:00 WBC RBC Hgb Hct MCV MCH MCHC RDW Plt Count Lymph % (Auto) [place] % (Auto) Lymph # [place] # Baso # Seg Neutrophils % Seg Neuts % (Manual) Lymphocytes % (Manual) Monocytes % (Manual) Eosinophils % (Manual) Basophils % (Manual) Nucleated RBC % Seg Neutrophils # Seg Neutrophils # Man Lymphocytes # (Manual) Monocytes # (Manual) Eosinophils # (Manual) Basophils # (Manual) PT INR 1.18 H Fibrinogen dRVVT Confirm Interp Factor V Activity POC ABG pH POC ABG pCO2 POC ABG pO2 ABG pO2 ABG HCO3 ABG Base Excess ABG Hemoglobin Oxyhemoglobin Sodium 136 L 133 L Potassium Chloride 96.1 L 94.8 L Carbon Dioxide 21 L BUN 37 H 42 H Creatinine 1.8 H 2.0 H Glucose POC Glucose Lactic Acid Calcium Ionized Calcium Phosphorus Magnesium Direct Bilirubin AST ALT Alkaline Phosphatase Lactate Dehydrogenase Troponin T C-Reactive Protein Total Protein Albumin Prealbumin Triglycerides Cholesterol LDL Cholesterol Direct HDL Cholesterol 25-OH Vitamin D Total PTH Intact Urine pH Urine WBC (Auto) Urine Creatinine Urine Total Protein Fluid Total Protein Vancomycin Trough Rheumatoid Factor Complement C4 Miscellaneous Test Crossmatch 11/12/16 11/12/16 11/13/16 04:00 23:55 05:53 WBC RBC Hgb 8.9 L Hct 27.2 L MCV MCH MCHC RDW Plt Count Lymph % (Auto) [place] % (Auto) Lymph # [place] # Baso # Seg Neutrophils % Seg Neuts % (Manual) Lymphocytes % (Manual) Monocytes % (Manual) Eosinophils % (Manual) Basophils % (Manual) Nucleated RBC % Seg Neutrophils # Seg Neutrophils # Man Lymphocytes # (Manual) Monocytes # (Manual) Eosinophils # (Manual) Basophils # (Manual) PT INR Fibrinogen dRVVT Confirm Interp Factor V Activity POC ABG pH POC ABG pCO2 POC ABG pO2 ABG pO2 ABG HCO3 ABG Base Excess ABG Hemoglobin Oxyhemoglobin Sodium Potassium Chloride Carbon Dioxide BUN Creatinine Glucose POC Glucose 132 H 120 H Lactic Acid Calcium Ionized Calcium Phosphorus Magnesium Direct Bilirubin AST ALT Alkaline Phosphatase Lactate Dehydrogenase Troponin T C-Reactive Protein Total Protein Albumin Prealbumin Triglycerides Cholesterol LDL Cholesterol Direct HDL Cholesterol 25-OH Vitamin D Total PTH Intact Urine pH Urine WBC (Auto) Urine Creatinine Urine Total Protein Fluid Total Protein Vancomycin Trough Rheumatoid Factor Complement C4 Miscellaneous Test Crossmatch 11/13/16 11/13/16 11/13/16 11:43 17:09 23:41 WBC RBC Hgb Hct MCV MCH MCHC RDW Plt Count Lymph % (Auto) [place] % (Auto) Lymph # [place] # Baso # Seg Neutrophils % Seg Neuts % (Manual) Lymphocytes % (Manual) Monocytes % (Manual) Eosinophils % (Manual) Basophils % (Manual) Nucleated RBC % Seg Neutrophils # Seg Neutrophils # Man Lymphocytes # (Manual) Monocytes # (Manual) Eosinophils # (Manual) Basophils # (Manual) PT INR Fibrinogen dRVVT Confirm Interp Factor V Activity POC ABG pH POC ABG pCO2 POC ABG pO2 ABG pO2 ABG HCO3 ABG Base Excess ABG Hemoglobin Oxyhemoglobin Sodium Potassium Chloride Carbon Dioxide BUN Creatinine Glucose POC Glucose 114 H 113 H 108 H Lactic Acid Calcium Ionized Calcium Phosphorus Magnesium Direct Bilirubin AST ALT Alkaline Phosphatase Lactate Dehydrogenase Troponin T C-Reactive Protein Total Protein Albumin Prealbumin Triglycerides Cholesterol LDL Cholesterol Direct HDL Cholesterol 25-OH Vitamin D Total PTH Intact Urine pH Urine WBC (Auto) Urine Creatinine Urine Total Protein Fluid Total Protein Vancomycin Trough Rheumatoid Factor Complement C4 Miscellaneous Test Crossmatch 11/13/16 11/15/16 11/15/16 Unknown 00:37 03:30 WBC 11.2 H RBC 2.72 L Hgb 7.6 L Hct 23.4 L MCV MCH MCHC RDW 16.5 H Plt Count Lymph % (Auto) [place] % (Auto) Lymph # [place] # Baso # Seg Neutrophils % Seg Neuts % (Manual) Lymphocytes % (Manual) Monocytes % (Manual) Eosinophils % (Manual) Basophils % (Manual) Nucleated RBC % Seg Neutrophils # Seg Neutrophils # Man Lymphocytes # (Manual) Monocytes # (Manual) Eosinophils # (Manual) Basophils # (Manual) PT INR Fibrinogen dRVVT Confirm Interp Factor V Activity POC ABG pH POC ABG pCO2 POC ABG pO2 ABG pO2 ABG HCO3 ABG Base Excess ABG Hemoglobin Oxyhemoglobin Sodium 135 L Potassium Chloride 95.2 L Carbon Dioxide BUN 52 H Creatinine 2.2 H Glucose POC Glucose 108 H Lactic Acid Calcium Ionized Calcium Phosphorus Magnesium Direct Bilirubin AST ALT Alkaline Phosphatase Lactate Dehydrogenase Troponin T C-Reactive Protein Total Protein Albumin Prealbumin Triglycerides Cholesterol LDL Cholesterol Direct HDL Cholesterol 25-OH Vitamin D Total PTH Intact Urine pH Urine WBC (Auto) Urine Creatinine Urine Total Protein Fluid Total Protein Vancomycin Trough Rheumatoid Factor Complement C4 Miscellaneous Test Crossmatch 11/15/16 11/15/16 11/15/16 03:30 05:04 11:50 WBC RBC Hgb Hct MCV MCH MCHC RDW Plt Count Lymph % (Auto) [place] % (Auto) Lymph # [place] # Baso # Seg Neutrophils % Seg Neuts % (Manual) Lymphocytes % (Manual) Monocytes % (Manual) Eosinophils % (Manual) Basophils % (Manual) Nucleated RBC % Seg Neutrophils # Seg Neutrophils # Man Lymphocytes # (Manual) Monocytes # (Manual) Eosinophils # (Manual) Basophils # (Manual) PT INR Fibrinogen dRVVT Confirm Interp Factor V Activity POC ABG pH POC ABG pCO2 POC ABG pO2 ABG pO2 ABG HCO3 ABG Base Excess ABG Hemoglobin Oxyhemoglobin Sodium Potassium 3.4 L Chloride Carbon Dioxide BUN 25 H Creatinine 1.5 H Glucose 103 H POC Glucose 121 H 144 H Lactic Acid Calcium Ionized Calcium Phosphorus Magnesium Direct Bilirubin AST ALT Alkaline Phosphatase Lactate Dehydrogenase Troponin T C-Reactive Protein Total Protein Albumin Prealbumin Triglycerides Cholesterol LDL Cholesterol Direct HDL Cholesterol 25-OH Vitamin D Total PTH Intact Urine pH Urine WBC (Auto) Urine Creatinine Urine Total Protein Fluid Total Protein Vancomycin Trough Rheumatoid Factor Complement C4 Miscellaneous Test Crossmatch 11/15/16 11/15/16 11/16/16 21:28 23:20 11:44 WBC RBC Hgb Hct MCV MCH MCHC RDW Plt Count Lymph % (Auto) [place] % (Auto) Lymph # [place] # Baso # Seg Neutrophils % Seg Neuts % (Manual) Lymphocytes % (Manual) Monocytes % (Manual) Eosinophils % (Manual) Basophils % (Manual) Nucleated RBC % Seg Neutrophils # Seg Neutrophils # Man Lymphocytes # (Manual) Monocytes # (Manual) Eosinophils # (Manual) Basophils # (Manual) PT INR Fibrinogen dRVVT Confirm Interp Factor V Activity POC ABG pH 7.462 H POC ABG pCO2 POC ABG pO2 71 L ABG pO2 ABG HCO3 ABG Base Excess ABG Hemoglobin Oxyhemoglobin Sodium Potassium Chloride Carbon Dioxide BUN Creatinine Glucose POC Glucose 116 H 133 H Lactic Acid Calcium Ionized Calcium Phosphorus Magnesium Direct Bilirubin AST ALT Alkaline Phosphatase Lactate Dehydrogenase Troponin T C-Reactive Protein Total Protein Albumin Prealbumin Triglycerides Cholesterol LDL Cholesterol Direct HDL Cholesterol 25-OH Vitamin D Total PTH Intact Urine pH Urine WBC (Auto) Urine Creatinine Urine Total Protein Fluid Total Protein Vancomycin Trough Rheumatoid Factor Complement C4 Miscellaneous Test Crossmatch 11/16/16 11/16/16 11/16/16 12:20 17:05 23:35 WBC 11.7 H RBC 2.73 L Hgb 7.6 L Hct 23.7 L MCV MCH MCHC RDW 16.6 H Plt Count Lymph % (Auto) [place] % (Auto) Lymph # [place] # Baso # Seg Neutrophils % Seg Neuts % (Manual) Lymphocytes % (Manual) Monocytes % (Manual) Eosinophils % (Manual) Basophils % (Manual) Nucleated RBC % Seg Neutrophils # Seg Neutrophils # Man Lymphocytes # (Manual) Monocytes # (Manual) Eosinophils # (Manual) Basophils # (Manual) PT INR Fibrinogen dRVVT Confirm Interp Factor V Activity POC ABG pH POC ABG pCO2 POC ABG pO2 ABG pO2 ABG HCO3 ABG Base Excess ABG Hemoglobin Oxyhemoglobin Sodium Potassium Chloride Carbon Dioxide BUN Creatinine Glucose POC Glucose 154 H 125 H Lactic Acid Calcium Ionized Calcium Phosphorus Magnesium Direct Bilirubin AST ALT Alkaline Phosphatase Lactate Dehydrogenase Troponin T C-Reactive Protein Total Protein Albumin Prealbumin Triglycerides Cholesterol LDL Cholesterol Direct HDL Cholesterol 25-OH Vitamin D Total PTH Intact Urine pH Urine WBC (Auto) Urine Creatinine Urine Total Protein Fluid Total Protein Vancomycin Trough Rheumatoid Factor Complement C4 Miscellaneous Test Crossmatch 11/17/16 11/17/16 11/17/16 03:20 03:20 03:20 WBC RBC 2.55 L Hgb 7.3 L Hct 21.9 L MCV MCH MCHC RDW 16.6 H Plt Count Lymph % (Auto) [place] % (Auto) 11.5 H Lymph # [place] # 1.1 H Baso # Seg Neutrophils % Seg Neuts % (Manual) Lymphocytes % (Manual) Monocytes % (Manual) Eosinophils % (Manual) Basophils % (Manual) Nucleated RBC % Seg Neutrophils # Seg Neutrophils # Man Lymphocytes # (Manual) Monocytes # (Manual) Eosinophils # (Manual) Basophils # (Manual) PT 16.8 H INR 1.37 H Fibrinogen dRVVT Confirm Interp Factor V Activity POC ABG pH POC ABG pCO2 POC ABG pO2 ABG pO2 ABG HCO3 ABG Base Excess ABG Hemoglobin Oxyhemoglobin Sodium Potassium 3.5 L Chloride Carbon Dioxide BUN 21 H Creatinine Glucose POC Glucose Lactic Acid Calcium 7.9 L Ionized Calcium Phosphorus Magnesium Direct Bilirubin AST ALT Alkaline Phosphatase Lactate Dehydrogenase Troponin T C-Reactive Protein Total Protein Albumin Prealbumin Triglycerides Cholesterol LDL Cholesterol Direct HDL Cholesterol 25-OH Vitamin D Total PTH Intact Urine pH Urine WBC (Auto) Urine Creatinine Urine Total Protein Fluid Total Protein Vancomycin Trough Rheumatoid Factor Complement C4 Miscellaneous Test Crossmatch 11/17/16 11/17/16 11/17/16 06:34 11:21 21:22 WBC RBC Hgb Hct MCV MCH MCHC RDW Plt Count Lymph % (Auto) [place] % (Auto) Lymph # [place] # Baso # Seg Neutrophils % Seg Neuts % (Manual) Lymphocytes % (Manual) Monocytes % (Manual) Eosinophils % (Manual) Basophils % (Manual) Nucleated RBC % Seg Neutrophils # Seg Neutrophils # Man Lymphocytes # (Manual) Monocytes # (Manual) Eosinophils # (Manual) Basophils # (Manual) PT INR Fibrinogen dRVVT Confirm Interp Factor V Activity POC ABG pH 7.467 H POC ABG pCO2 POC ABG pO2 73 L ABG pO2 ABG HCO3 ABG Base Excess ABG Hemoglobin Oxyhemoglobin Sodium Potassium Chloride Carbon Dioxide BUN Creatinine Glucose POC Glucose 121 H 119 H Lactic Acid Calcium Ionized Calcium Phosphorus Magnesium Direct Bilirubin AST ALT Alkaline Phosphatase Lactate Dehydrogenase Troponin T C-Reactive Protein Total Protein Albumin Prealbumin Triglycerides Cholesterol LDL Cholesterol Direct HDL Cholesterol 25-OH Vitamin D Total PTH Intact Urine pH Urine WBC (Auto) Urine Creatinine Urine Total Protein Fluid Total Protein Vancomycin Trough Rheumatoid Factor Complement C4 Miscellaneous Test Crossmatch 11/18/16 11/18/16 11/19/16 12:16 17:19 00:00 WBC RBC Hgb Hct MCV MCH MCHC RDW Plt Count Lymph % (Auto) [place] % (Auto) Lymph # [place] # Baso # Seg Neutrophils % Seg Neuts % (Manual) Lymphocytes % (Manual) Monocytes % (Manual) Eosinophils % (Manual) Basophils % (Manual) Nucleated RBC % Seg Neutrophils # Seg Neutrophils # Man Lymphocytes # (Manual) Monocytes # (Manual) Eosinophils # (Manual) Basophils # (Manual) PT INR Fibrinogen dRVVT Confirm Interp Factor V Activity POC ABG pH POC ABG pCO2 POC ABG pO2 ABG pO2 ABG HCO3 ABG Base Excess ABG Hemoglobin Oxyhemoglobin Sodium Potassium Chloride Carbon Dioxide BUN Creatinine Glucose POC Glucose 124 H 162 H 139 H Lactic Acid Calcium Ionized Calcium Phosphorus Magnesium Direct Bilirubin AST ALT Alkaline Phosphatase Lactate Dehydrogenase Troponin T C-Reactive Protein Total Protein Albumin Prealbumin Triglycerides Cholesterol LDL Cholesterol Direct HDL Cholesterol 25-OH Vitamin D Total PTH Intact Urine pH Urine WBC (Auto) Urine Creatinine Urine Total Protein Fluid Total Protein Vancomycin Trough Rheumatoid Factor Complement C4 Miscellaneous Test Crossmatch 11/19/16 11/19/16 11/20/16 05:00 12:43 00:40 WBC RBC Hgb Hct MCV MCH MCHC RDW Plt Count Lymph % (Auto) [place] % (Auto) Lymph # [place] # Baso # Seg Neutrophils % Seg Neuts % (Manual) Lymphocytes % (Manual) Monocytes % (Manual) Eosinophils % (Manual) Basophils % (Manual) Nucleated RBC % Seg Neutrophils # Seg Neutrophils # Man Lymphocytes # (Manual) Monocytes # (Manual) Eosinophils # (Manual) Basophils # (Manual) PT INR Fibrinogen dRVVT Confirm Interp Factor V Activity POC ABG pH POC ABG pCO2 POC ABG pO2 ABG pO2 ABG HCO3 ABG Base Excess ABG Hemoglobin Oxyhemoglobin Sodium Potassium Chloride Carbon Dioxide BUN Creatinine Glucose POC Glucose 110 H 125 H 136 H Lactic Acid Calcium Ionized Calcium Phosphorus Magnesium Direct Bilirubin AST ALT Alkaline Phosphatase Lactate Dehydrogenase Troponin T C-Reactive Protein Total Protein Albumin Prealbumin Triglycerides Cholesterol LDL Cholesterol Direct HDL Cholesterol 25-OH Vitamin D Total PTH Intact Urine pH Urine WBC (Auto) Urine Creatinine Urine Total Protein Fluid Total Protein Vancomycin Trough Rheumatoid Factor Complement C4 Miscellaneous Test Crossmatch 11/20/16 11/20/16 11/20/16 05:00 05:00 05:51 WBC 13.1 H RBC 2.74 L Hgb 7.7 L Hct 23.6 L MCV MCH MCHC RDW 16.9 H Plt Count Lymph % (Auto) [place] % (Auto) 10.8 H Lymph # [place] # 1.4 H Baso # Seg Neutrophils % Seg Neuts % (Manual) Lymphocytes % (Manual) Monocytes % (Manual) Eosinophils % (Manual) Basophils % (Manual) Nucleated RBC % Seg Neutrophils # 7.9 H Seg Neutrophils # Man Lymphocytes # (Manual) Monocytes # (Manual) Eosinophils # (Manual) Basophils # (Manual) PT INR Fibrinogen dRVVT Confirm Interp Factor V Activity POC ABG pH POC ABG pCO2 POC ABG pO2 ABG pO2 ABG HCO3 ABG Base Excess ABG Hemoglobin Oxyhemoglobin Sodium Potassium Chloride Carbon Dioxide BUN 31 H Creatinine 1.8 H Glucose 129 H POC Glucose 133 H Lactic Acid Calcium Ionized Calcium Phosphorus Magnesium Direct Bilirubin AST ALT Alkaline Phosphatase Lactate Dehydrogenase Troponin T C-Reactive Protein Total Protein Albumin Prealbumin Triglycerides Cholesterol LDL Cholesterol Direct HDL Cholesterol 25-OH Vitamin D Total PTH Intact Urine pH Urine WBC (Auto) Urine Creatinine Urine Total Protein Fluid Total Protein Vancomycin Trough Rheumatoid Factor Complement C4 Miscellaneous Test Crossmatch 11/20/16 11/20/16 11/21/16 12:40 18:10 01:20 WBC RBC Hgb Hct MCV MCH MCHC RDW Plt Count Lymph % (Auto) [place] % (Auto) Lymph # [place] # Baso # Seg Neutrophils % Seg Neuts % (Manual) Lymphocytes % (Manual) Monocytes % (Manual) Eosinophils % (Manual) Basophils % (Manual) Nucleated RBC % Seg Neutrophils # Seg Neutrophils # Man Lymphocytes # (Manual) Monocytes # (Manual) Eosinophils # (Manual) Basophils # (Manual) PT INR Fibrinogen dRVVT Confirm Interp Factor V Activity POC ABG pH POC ABG pCO2 POC ABG pO2 ABG pO2 ABG HCO3 ABG Base Excess ABG Hemoglobin Oxyhemoglobin Sodium Potassium Chloride Carbon Dioxide BUN Creatinine Glucose POC Glucose 134 H 138 H 136 H Lactic Acid Calcium Ionized Calcium Phosphorus Magnesium Direct Bilirubin AST ALT Alkaline Phosphatase Lactate Dehydrogenase Troponin T C-Reactive Protein Total Protein Albumin Prealbumin Triglycerides Cholesterol LDL Cholesterol Direct HDL Cholesterol 25-OH Vitamin D Total PTH Intact Urine pH Urine WBC (Auto) Urine Creatinine Urine Total Protein Fluid Total Protein Vancomycin Trough Rheumatoid Factor Complement C4 Miscellaneous Test Crossmatch 11/21/16 11/21/16 11/21/16 07:04 07:45 07:45 WBC 22.0 H RBC 2.91 L Hgb 8.2 L Hct 25.4 L MCV MCH MCHC RDW 17.1 H Plt Count Lymph % (Auto) [place] % (Auto) Lymph # [place] # Baso # Seg Neutrophils % Seg Neuts % (Manual) Lymphocytes % (Manual) 8.0 L Monocytes % (Manual) Eosinophils % (Manual) Basophils % (Manual) Nucleated RBC % Seg Neutrophils # Seg Neutrophils # Man 14.7 H Lymphocytes # (Manual) Monocytes # (Manual) 1.1 H Eosinophils # (Manual) Basophils # (Manual) PT INR Fibrinogen dRVVT Confirm Interp Factor V Activity POC ABG pH POC ABG pCO2 POC ABG pO2 ABG pO2 ABG HCO3 ABG Base Excess ABG Hemoglobin Oxyhemoglobin Sodium Potassium Chloride Carbon Dioxide BUN 42 H Creatinine 2.0 H Glucose POC Glucose 108 H Lactic Acid Calcium Ionized Calcium Phosphorus Magnesium Direct Bilirubin AST ALT Alkaline Phosphatase Lactate Dehydrogenase Troponin T C-Reactive Protein Total Protein Albumin Prealbumin Triglycerides Cholesterol LDL Cholesterol Direct HDL Cholesterol 25-OH Vitamin D Total PTH Intact Urine pH Urine WBC (Auto) Urine Creatinine Urine Total Protein Fluid Total Protein Vancomycin Trough Rheumatoid Factor Complement C4 Miscellaneous Test Crossmatch 11/21/16 11/21/16 11/21/16 08:38 10:09 11:20 WBC RBC Hgb Hct MCV MCH MCHC RDW Plt Count Lymph % (Auto) [place] % (Auto) Lymph # [place] # Baso # Seg Neutrophils % Seg Neuts % (Manual) Lymphocytes % (Manual) Monocytes % (Manual) Eosinophils % (Manual) Basophils % (Manual) Nucleated RBC % Seg Neutrophils # Seg Neutrophils # Man Lymphocytes # (Manual) Monocytes # (Manual) Eosinophils # (Manual) Basophils # (Manual) PT INR Fibrinogen dRVVT Confirm Interp Factor V Activity POC ABG pH 7.346 L POC ABG pCO2 34.4 L POC ABG pO2 314 H ABG pO2 ABG HCO3 ABG Base Excess ABG Hemoglobin Oxyhemoglobin Sodium Potassium Chloride Carbon Dioxide BUN Creatinine Glucose POC Glucose 195 H 153 H Lactic Acid Calcium Ionized Calcium Phosphorus Magnesium Direct Bilirubin AST ALT Alkaline Phosphatase Lactate Dehydrogenase Troponin T C-Reactive Protein Total Protein Albumin Prealbumin Triglycerides Cholesterol LDL Cholesterol Direct HDL Cholesterol 25-OH Vitamin D Total PTH Intact Urine pH Urine WBC (Auto) Urine Creatinine Urine Total Protein Fluid Total Protein Vancomycin Trough Rheumatoid Factor Complement C4 Miscellaneous Test Crossmatch 11/21/16 11/22/16 11/22/16 23:37 04:48 05:00 WBC 29.7 H RBC 2.73 L Hgb 7.5 L Hct 24.2 L MCV MCH 27 L MCHC RDW 17.4 H Plt Count Lymph % (Auto) [place] % (Auto) Lymph # [place] # Baso # Seg Neutrophils % Seg Neuts % (Manual) Lymphocytes % (Manual) 7.0 L Monocytes % (Manual) Eosinophils % (Manual) Basophils % (Manual) Nucleated RBC % Seg Neutrophils # Seg Neutrophils # Man 15.4 H Lymphocytes # (Manual) Monocytes # (Manual) Eosinophils # (Manual) Basophils # (Manual) PT INR Fibrinogen dRVVT Confirm Interp Factor V Activity POC ABG pH POC ABG pCO2 24.6 L POC ABG pO2 189 H ABG pO2 ABG HCO3 ABG Base Excess ABG Hemoglobin Oxyhemoglobin Sodium Potassium Chloride Carbon Dioxide BUN Creatinine Glucose POC Glucose 65 L Lactic Acid Calcium Ionized Calcium Phosphorus Magnesium Direct Bilirubin AST ALT Alkaline Phosphatase Lactate Dehydrogenase Troponin T C-Reactive Protein Total Protein Albumin Prealbumin Triglycerides Cholesterol LDL Cholesterol Direct HDL Cholesterol 25-OH Vitamin D Total PTH Intact Urine pH Urine WBC (Auto) Urine Creatinine Urine Total Protein Fluid Total Protein Vancomycin Trough Rheumatoid Factor Complement C4 Miscellaneous Test Crossmatch 11/22/16 11/23/16 11/23/16 05:00 03:44 04:06 WBC RBC 2.52 L Hgb 7.2 L Hct 21.5 L MCV MCH MCHC RDW 17.1 H Plt Count Lymph % (Auto) [place] % (Auto) 12.4 H Lymph # [place] # 1.4 H Baso # Seg Neutrophils % Seg Neuts % (Manual) Lymphocytes % (Manual) Monocytes % (Manual) Eosinophils % (Manual) Basophils % (Manual) Nucleated RBC % Seg Neutrophils # Seg Neutrophils # Man Lymphocytes # (Manual) Monocytes # (Manual) Eosinophils # (Manual) Basophils # (Manual) PT INR Fibrinogen dRVVT Confirm Interp Factor V Activity POC ABG pH 7.493 H POC ABG pCO2 29.5 L POC ABG pO2 49 L ABG pO2 ABG HCO3 ABG Base Excess ABG Hemoglobin Oxyhemoglobin Sodium 134 L Potassium Chloride 95.9 L Carbon Dioxide 14 L D BUN 51 H Creatinine 2.6 H Glucose POC Glucose Lactic Acid Calcium Ionized Calcium Phosphorus Magnesium Direct Bilirubin AST ALT Alkaline Phosphatase Lactate Dehydrogenase Troponin T C-Reactive Protein Total Protein Albumin Prealbumin Triglycerides Cholesterol LDL Cholesterol Direct HDL Cholesterol 25-OH Vitamin D Total PTH Intact Urine pH Urine WBC (Auto) Urine Creatinine Urine Total Protein Fluid Total Protein Vancomycin Trough Rheumatoid Factor Complement C4 Miscellaneous Test Crossmatch 11/23/16 11/23/16 11/24/16 04:06 11:29 06:39 WBC RBC Hgb Hct MCV MCH MCHC RDW Plt Count Lymph % (Auto) [place] % (Auto) Lymph # [place] # Baso # Seg Neutrophils % Seg Neuts % (Manual) Lymphocytes % (Manual) Monocytes % (Manual) Eosinophils % (Manual) Basophils % (Manual) Nucleated RBC % Seg Neutrophils # Seg Neutrophils # Man Lymphocytes # (Manual) Monocytes # (Manual) Eosinophils # (Manual) Basophils # (Manual) PT INR Fibrinogen dRVVT Confirm Interp Factor V Activity POC ABG pH POC ABG pCO2 POC ABG pO2 ABG pO2 ABG HCO3 ABG Base Excess ABG Hemoglobin Oxyhemoglobin Sodium 136 L Potassium Chloride 95.2 L Carbon Dioxide BUN 60 H Creatinine 2.9 H Glucose POC Glucose 69 L 305 H Lactic Acid Calcium Ionized Calcium Phosphorus Magnesium 1.60 L Direct Bilirubin AST ALT Alkaline Phosphatase Lactate Dehydrogenase Troponin T C-Reactive Protein Total Protein Albumin Prealbumin Triglycerides Cholesterol LDL Cholesterol Direct HDL Cholesterol 25-OH Vitamin D Total PTH Intact Urine pH Urine WBC (Auto) Urine Creatinine Urine Total Protein Fluid Total Protein Vancomycin Trough Rheumatoid Factor Complement C4 Miscellaneous Test Crossmatch 11/24/16 11/24/16 11/24/16 06:43 08:08 08:08 WBC 11.2 H RBC 2.47 L Hgb 6.8 L Hct 20.6 L MCV MCH MCHC RDW 17.0 H Plt Count Lymph % (Auto) [place] % (Auto) 10.3 H Lymph # [place] # 1.2 H Baso # Seg Neutrophils % Seg Neuts % (Manual) Lymphocytes % (Manual) Monocytes % (Manual) Eosinophils % (Manual) Basophils % (Manual) Nucleated RBC % Seg Neutrophils # Seg Neutrophils # Man Lymphocytes # (Manual) Monocytes # (Manual) Eosinophils # (Manual) Basophils # (Manual) PT INR Fibrinogen dRVVT Confirm Interp Factor V Activity POC ABG pH POC ABG pCO2 POC ABG pO2 ABG pO2 ABG HCO3 ABG Base Excess ABG Hemoglobin Oxyhemoglobin Sodium 135 L Potassium Chloride 96.3 L Carbon Dioxide BUN 61 H Creatinine 3.1 H Glucose POC Glucose 62 L Lactic Acid Calcium 8.2 L Ionized Calcium Phosphorus Magnesium Direct Bilirubin AST ALT Alkaline Phosphatase Lactate Dehydrogenase Troponin T C-Reactive Protein Total Protein Albumin Prealbumin Triglycerides Cholesterol LDL Cholesterol Direct HDL Cholesterol 25-OH Vitamin D Total PTH Intact Urine pH Urine WBC (Auto) Urine Creatinine Urine Total Protein Fluid Total Protein Vancomycin Trough Rheumatoid Factor Complement C4 Miscellaneous Test Crossmatch 11/24/16 11/24/16 11/24/16 08:34 11:20 12:41 WBC RBC Hgb Hct MCV MCH MCHC RDW Plt Count Lymph % (Auto) [place] % (Auto) Lymph # [place] # Baso # Seg Neutrophils % Seg Neuts % (Manual) Lymphocytes % (Manual) Monocytes % (Manual) Eosinophils % (Manual) Basophils % (Manual) Nucleated RBC % Seg Neutrophils # Seg Neutrophils # Man Lymphocytes # (Manual) Monocytes # (Manual) Eosinophils # (Manual) Basophils # (Manual) PT INR Fibrinogen dRVVT Confirm Interp Factor V Activity POC ABG pH POC ABG pCO2 POC ABG pO2 ABG pO2 ABG HCO3 ABG Base Excess ABG Hemoglobin Oxyhemoglobin Sodium Potassium Chloride Carbon Dioxide BUN Creatinine Glucose POC Glucose 108 H Lactic Acid Calcium Ionized Calcium Phosphorus Magnesium 1.60 L Direct Bilirubin AST ALT Alkaline Phosphatase Lactate Dehydrogenase Troponin T C-Reactive Protein Total Protein Albumin Prealbumin Triglycerides Cholesterol LDL Cholesterol Direct HDL Cholesterol 25-OH Vitamin D Total PTH Intact Urine pH Urine WBC (Auto) Urine Creatinine Urine Total Protein Fluid Total Protein Vancomycin Trough Rheumatoid Factor Complement C4 Miscellaneous Test Crossmatch See Detail 11/25/16 11/25/16 11/25/16 00:03 04:42 04:42 WBC RBC 3.03 L Hgb 8.6 L Hct 25.3 L MCV MCH MCHC RDW 16.2 H Plt Count Lymph % (Auto) [place] % (Auto) 8.1 H Lymph # [place] # Baso # Seg Neutrophils % 71.3 H Seg Neuts % (Manual) Lymphocytes % (Manual) Monocytes % (Manual) Eosinophils % (Manual) Basophils % (Manual) Nucleated RBC % Seg Neutrophils # Seg Neutrophils # Man Lymphocytes # (Manual) Monocytes # (Manual) Eosinophils # (Manual) Basophils # (Manual) PT INR Fibrinogen dRVVT Confirm Interp Factor V Activity POC ABG pH POC ABG pCO2 POC ABG pO2 ABG pO2 ABG HCO3 ABG Base Excess ABG Hemoglobin Oxyhemoglobin Sodium Potassium Chloride Carbon Dioxide BUN 61 H Creatinine 3.0 H Glucose 102 H POC Glucose 113 H Lactic Acid Calcium 8.2 L Ionized Calcium Phosphorus Magnesium Direct Bilirubin AST ALT Alkaline Phosphatase 142 H Lactate Dehydrogenase Troponin T C-Reactive Protein Total Protein 5.7 L Albumin 1.5 L Prealbumin Triglycerides Cholesterol LDL Cholesterol Direct HDL Cholesterol 25-OH Vitamin D Total PTH Intact Urine pH Urine WBC (Auto) Urine Creatinine Urine Total Protein Fluid Total Protein Vancomycin Trough Rheumatoid Factor Complement C4 Miscellaneous Test Crossmatch 11/25/16 11/25/16 11/25/16 05:12 11:31 14:12 WBC RBC Hgb Hct MCV MCH MCHC RDW Plt Count Lymph % (Auto) [place] % (Auto) Lymph # [place] # Baso # Seg Neutrophils % Seg Neuts % (Manual) Lymphocytes % (Manual) Monocytes % (Manual) Eosinophils % (Manual) Basophils % (Manual) Nucleated RBC % Seg Neutrophils # Seg Neutrophils # Man Lymphocytes # (Manual) Monocytes # (Manual) Eosinophils # (Manual) Basophils # (Manual) PT INR Fibrinogen dRVVT Confirm Interp Factor V Activity POC ABG pH 7.487 H POC ABG pCO2 POC ABG pO2 153 H ABG pO2 ABG HCO3 ABG Base Excess ABG Hemoglobin Oxyhemoglobin Sodium Potassium Chloride Carbon Dioxide BUN Creatinine Glucose POC Glucose 131 H 140 H Lactic Acid Calcium Ionized Calcium Phosphorus Magnesium Direct Bilirubin AST ALT Alkaline Phosphatase Lactate Dehydrogenase Troponin T C-Reactive Protein Total Protein Albumin Prealbumin Triglycerides Cholesterol LDL Cholesterol Direct HDL Cholesterol 25-OH Vitamin D Total PTH Intact Urine pH Urine WBC (Auto) Urine Creatinine Urine Total Protein Fluid Total Protein Vancomycin Trough Rheumatoid Factor Complement C4 Miscellaneous Test Crossmatch 11/25/16 11/26/16 11/26/16 17:23 00:09 05:13 WBC RBC 2.94 L Hgb 8.4 L Hct 24.6 L MCV MCH MCHC RDW 16.4 H Plt Count Lymph % (Auto) [place] % (Auto) 12.3 H Lymph # [place] # 1.1 H Baso # Seg Neutrophils % Seg Neuts % (Manual) Lymphocytes % (Manual) Monocytes % (Manual) Eosinophils % (Manual) Basophils % (Manual) Nucleated RBC % Seg Neutrophils # Seg Neutrophils # Man Lymphocytes # (Manual) Monocytes # (Manual) Eosinophils # (Manual) Basophils # (Manual) PT INR Fibrinogen dRVVT Confirm Interp Factor V Activity POC ABG pH POC ABG pCO2 POC ABG pO2 ABG pO2 ABG HCO3 ABG Base Excess ABG Hemoglobin Oxyhemoglobin Sodium Potassium Chloride Carbon Dioxide BUN Creatinine Glucose POC Glucose 146 H 112 H Lactic Acid Calcium Ionized Calcium Phosphorus Magnesium Direct Bilirubin AST ALT Alkaline Phosphatase Lactate Dehydrogenase Troponin T C-Reactive Protein Total Protein Albumin Prealbumin Triglycerides Cholesterol LDL Cholesterol Direct HDL Cholesterol 25-OH Vitamin D Total PTH Intact Urine pH Urine WBC (Auto) Urine Creatinine Urine Total Protein Fluid Total Protein Vancomycin Trough Rheumatoid Factor Complement C4 Miscellaneous Test Crossmatch 11/26/16 11/26/16 11/26/16 05:13 05:28 11:53 WBC RBC Hgb Hct MCV MCH MCHC RDW Plt Count Lymph % (Auto) [place] % (Auto) Lymph # [place] # Baso # Seg Neutrophils % Seg Neuts % (Manual) Lymphocytes % (Manual) Monocytes % (Manual) Eosinophils % (Manual) Basophils % (Manual) Nucleated RBC % Seg Neutrophils # Seg Neutrophils # Man Lymphocytes # (Manual) Monocytes # (Manual) Eosinophils # (Manual) Basophils # (Manual) PT INR Fibrinogen dRVVT Confirm Interp Factor V Activity POC ABG pH POC ABG pCO2 POC ABG pO2 ABG pO2 ABG HCO3 ABG Base Excess ABG Hemoglobin Oxyhemoglobin Sodium Potassium Chloride 97.8 L Carbon Dioxide BUN 37 H Creatinine 2.0 H Glucose 109 H POC Glucose 117 H 111 H Lactic Acid Calcium 7.9 L Ionized Calcium Phosphorus 1.80 L D Magnesium Direct Bilirubin AST ALT Alkaline Phosphatase Lactate Dehydrogenase Troponin T C-Reactive Protein Total Protein Albumin Prealbumin Triglycerides Cholesterol LDL Cholesterol Direct HDL Cholesterol 25-OH Vitamin D Total PTH Intact Urine pH Urine WBC (Auto) Urine Creatinine Urine Total Protein Fluid Total Protein Vancomycin Trough Rheumatoid Factor Complement C4 Miscellaneous Test Crossmatch 11/26/16 11/27/16 11/27/16 17:14 04:50 06:02 WBC RBC Hgb Hct MCV MCH MCHC RDW Plt Count Lymph % (Auto) [place] % (Auto) Lymph # [place] # Baso # Seg Neutrophils % Seg Neuts % (Manual) Lymphocytes % (Manual) Monocytes % (Manual) Eosinophils % (Manual) Basophils % (Manual) Nucleated RBC % Seg Neutrophils # Seg Neutrophils # Man Lymphocytes # (Manual) Monocytes # (Manual) Eosinophils # (Manual) Basophils # (Manual) PT INR Fibrinogen dRVVT Confirm Interp Factor V Activity POC ABG pH POC ABG pCO2 POC ABG pO2 ABG pO2 75.2 L ABG HCO3 26.4 H ABG Base Excess ABG Hemoglobin 7.6 L Oxyhemoglobin 94.8 L Sodium Potassium Chloride Carbon Dioxide BUN 49 H Creatinine 2.3 H Glucose POC Glucose 115 H Lactic Acid Calcium Ionized Calcium Phosphorus 1.50 L Magnesium Direct Bilirubin AST ALT Alkaline Phosphatase Lactate Dehydrogenase Troponin T C-Reactive Protein Total Protein Albumin Prealbumin Triglycerides Cholesterol LDL Cholesterol Direct HDL Cholesterol 25-OH Vitamin D Total PTH Intact Urine pH Urine WBC (Auto) Urine Creatinine Urine Total Protein Fluid Total Protein Vancomycin Trough Rheumatoid Factor Complement C4 Miscellaneous Test Crossmatch 11/27/16 11/27/16 11/27/16 06:02 11:25 17:25 WBC 11.6 H RBC 2.75 L Hgb 7.6 L Hct 23.4 L MCV MCH MCHC RDW 16.5 H Plt Count Lymph % (Auto) [place] % (Auto) Lymph # [place] # Baso # Seg Neutrophils % Seg Neuts % (Manual) Lymphocytes % (Manual) Monocytes % (Manual) Eosinophils % (Manual) Basophils % (Manual) Nucleated RBC % Seg Neutrophils # Seg Neutrophils # Man Lymphocytes # (Manual) Monocytes # (Manual) Eosinophils # (Manual) Basophils # (Manual) PT INR Fibrinogen dRVVT Confirm Interp Factor V Activity POC ABG pH POC ABG pCO2 POC ABG pO2 ABG pO2 ABG HCO3 ABG Base Excess ABG Hemoglobin Oxyhemoglobin Sodium Potassium Chloride Carbon Dioxide BUN Creatinine Glucose POC Glucose 114 H 126 H Lactic Acid Calcium Ionized Calcium Phosphorus Magnesium Direct Bilirubin AST ALT Alkaline Phosphatase Lactate Dehydrogenase Troponin T C-Reactive Protein Total Protein Albumin Prealbumin Triglycerides Cholesterol LDL Cholesterol Direct HDL Cholesterol 25-OH Vitamin D Total PTH Intact Urine pH Urine WBC (Auto) Urine Creatinine Urine Total Protein Fluid Total Protein Vancomycin Trough Rheumatoid Factor Complement C4 Miscellaneous Test Crossmatch 11/28/16 11/28/16 11/28/16 04:45 05:33 05:44 WBC RBC Hgb Hct MCV MCH MCHC RDW Plt Count Lymph % (Auto) [place] % (Auto) Lymph # [place] # Baso # Seg Neutrophils % Seg Neuts % (Manual) Lymphocytes % (Manual) Monocytes % (Manual) Eosinophils % (Manual) Basophils % (Manual) Nucleated RBC % Seg Neutrophils # Seg Neutrophils # Man Lymphocytes # (Manual) Monocytes # (Manual) Eosinophils # (Manual) Basophils # (Manual) PT INR Fibrinogen dRVVT Confirm Interp Factor V Activity POC ABG pH POC ABG pCO2 POC ABG pO2 ABG pO2 99.3 H ABG HCO3 ABG Base Excess ABG Hemoglobin 8.3 L Oxyhemoglobin Sodium Potassium Chloride Carbon Dioxide BUN 63 H Creatinine 2.4 H Glucose 102 H POC Glucose 108 H Lactic Acid Calcium Ionized Calcium Phosphorus 1.80 L Magnesium Direct Bilirubin AST ALT Alkaline Phosphatase Lactate Dehydrogenase Troponin T C-Reactive Protein Total Protein Albumin Prealbumin Triglycerides Cholesterol LDL Cholesterol Direct HDL Cholesterol 25-OH Vitamin D Total PTH Intact Urine pH Urine WBC (Auto) Urine Creatinine Urine Total Protein Fluid Total Protein Vancomycin Trough Rheumatoid Factor Complement C4 Miscellaneous Test Crossmatch 11/28/16 11/28/16 11/28/16 12:31 16:09 23:46 WBC RBC Hgb Hct MCV MCH MCHC RDW Plt Count Lymph % (Auto) [place] % (Auto) Lymph # [place] # Baso # Seg Neutrophils % Seg Neuts % (Manual) Lymphocytes % (Manual) Monocytes % (Manual) Eosinophils % (Manual) Basophils % (Manual) Nucleated RBC % Seg Neutrophils # Seg Neutrophils # Man Lymphocytes # (Manual) Monocytes # (Manual) Eosinophils # (Manual) Basophils # (Manual) PT INR Fibrinogen dRVVT Confirm Interp Factor V Activity POC ABG pH POC ABG pCO2 POC ABG pO2 ABG pO2 ABG HCO3 ABG Base Excess ABG Hemoglobin Oxyhemoglobin Sodium Potassium Chloride Carbon Dioxide BUN Creatinine Glucose POC Glucose 126 H 111 H 119 H Lactic Acid Calcium Ionized Calcium Phosphorus Magnesium Direct Bilirubin AST ALT Alkaline Phosphatase Lactate Dehydrogenase Troponin T C-Reactive Protein Total Protein Albumin Prealbumin Triglycerides Cholesterol LDL Cholesterol Direct HDL Cholesterol 25-OH Vitamin D Total PTH Intact Urine pH Urine WBC (Auto) Urine Creatinine Urine Total Protein Fluid Total Protein Vancomycin Trough Rheumatoid Factor Complement C4 Miscellaneous Test Crossmatch 11/29/16 11/29/16 11/29/16 03:33 04:52 05:10 WBC RBC Hgb Hct MCV MCH MCHC RDW Plt Count Lymph % (Auto) [place] % (Auto) Lymph # [place] # Baso # Seg Neutrophils % Seg Neuts % (Manual) Lymphocytes % (Manual) Monocytes % (Manual) Eosinophils % (Manual) Basophils % (Manual) Nucleated RBC % Seg Neutrophils # Seg Neutrophils # Man Lymphocytes # (Manual) Monocytes # (Manual) Eosinophils # (Manual) Basophils # (Manual) PT INR Fibrinogen dRVVT Confirm Interp Factor V Activity POC ABG pH POC ABG pCO2 POC ABG pO2 ABG pO2 ABG HCO3 ABG Base Excess ABG Hemoglobin 7.0 L Oxyhemoglobin 94.9 L Sodium Potassium Chloride Carbon Dioxide BUN 73 H Creatinine 2.7 H Glucose POC Glucose 108 H Lactic Acid Calcium Ionized Calcium Phosphorus Magnesium Direct Bilirubin AST ALT Alkaline Phosphatase Lactate Dehydrogenase Troponin T C-Reactive Protein Total Protein Albumin Prealbumin Triglycerides Cholesterol LDL Cholesterol Direct HDL Cholesterol 25-OH Vitamin D Total PTH Intact Urine pH Urine WBC (Auto) Urine Creatinine Urine Total Protein Fluid Total Protein Vancomycin Trough Rheumatoid Factor Complement C4 Miscellaneous Test Crossmatch 11/29/16 11/29/16 11/29/16 12:16 18:05 23:46 WBC RBC Hgb Hct MCV MCH MCHC RDW Plt Count Lymph % (Auto) [place] % (Auto) Lymph # [place] # Baso # Seg Neutrophils % Seg Neuts % (Manual) Lymphocytes % (Manual) Monocytes % (Manual) Eosinophils % (Manual) Basophils % (Manual) Nucleated RBC % Seg Neutrophils # Seg Neutrophils # Man Lymphocytes # (Manual) Monocytes # (Manual) Eosinophils # (Manual) Basophils # (Manual) PT INR Fibrinogen dRVVT Confirm Interp Factor V Activity POC ABG pH POC ABG pCO2 POC ABG pO2 ABG pO2 ABG HCO3 ABG Base Excess ABG Hemoglobin Oxyhemoglobin Sodium Potassium Chloride Carbon Dioxide BUN Creatinine Glucose POC Glucose 133 H 146 H 141 H Lactic Acid Calcium Ionized Calcium Phosphorus Magnesium Direct Bilirubin AST ALT Alkaline Phosphatase Lactate Dehydrogenase Troponin T C-Reactive Protein Total Protein Albumin Prealbumin Triglycerides Cholesterol LDL Cholesterol Direct HDL Cholesterol 25-OH Vitamin D Total PTH Intact Urine pH Urine WBC (Auto) Urine Creatinine Urine Total Protein Fluid Total Protein Vancomycin Trough Rheumatoid Factor Complement C4 Miscellaneous Test Crossmatch 11/30/16 11/30/16 11/30/16 04:17 04:17 04:32 WBC 12.0 H RBC 2.80 L Hgb 7.8 L Hct 23.6 L MCV MCH MCHC RDW 16.6 H Plt Count Lymph % (Auto) [place] % (Auto) 11.3 H Lymph # [place] # 1.4 H Baso # Seg Neutrophils % Seg Neuts % (Manual) Lymphocytes % (Manual) Monocytes % (Manual) Eosinophils % (Manual) Basophils % (Manual) Nucleated RBC % Seg Neutrophils # 8.2 H Seg Neutrophils # Man Lymphocytes # (Manual) Monocytes # (Manual) Eosinophils # (Manual) Basophils # (Manual) PT INR Fibrinogen dRVVT Confirm Interp Factor V Activity POC ABG pH POC ABG pCO2 POC ABG pO2 ABG pO2 ABG HCO3 ABG Base Excess ABG Hemoglobin Oxyhemoglobin Sodium 169 H* D Potassium 5.1 H Chloride 121.5 H Carbon Dioxide BUN 34 H Creatinine 1.3 H D Glucose 133 H POC Glucose 131 H Lactic Acid Calcium 10.3 H Ionized Calcium Phosphorus Magnesium Direct Bilirubin AST ALT Alkaline Phosphatase Lactate Dehydrogenase Troponin T C-Reactive Protein Total Protein Albumin Prealbumin Triglycerides Cholesterol LDL Cholesterol Direct HDL Cholesterol 25-OH Vitamin D Total PTH Intact Urine pH Urine WBC (Auto) Urine Creatinine Urine Total Protein Fluid Total Protein Vancomycin Trough Rheumatoid Factor Complement C4 Miscellaneous Test Crossmatch 11/30/16 11/30/16 11/30/16 05:45 11:10 17:26 WBC RBC Hgb Hct MCV MCH MCHC RDW Plt Count Lymph % (Auto) [place] % (Auto) Lymph # [place] # Baso # Seg Neutrophils % Seg Neuts % (Manual) Lymphocytes % (Manual) Monocytes % (Manual) Eosinophils % (Manual) Basophils % (Manual) Nucleated RBC % Seg Neutrophils # Seg Neutrophils # Man Lymphocytes # (Manual) Monocytes # (Manual) Eosinophils # (Manual) Basophils # (Manual) PT INR Fibrinogen dRVVT Confirm Interp Factor V Activity POC ABG pH POC ABG pCO2 POC ABG pO2 ABG pO2 ABG HCO3 ABG Base Excess ABG Hemoglobin Oxyhemoglobin Sodium Potassium Chloride Carbon Dioxide BUN 45 H Creatinine 1.6 H Glucose 131 H POC Glucose 146 H 134 H Lactic Acid Calcium Ionized Calcium Phosphorus Magnesium Direct Bilirubin AST ALT Alkaline Phosphatase Lactate Dehydrogenase Troponin T C-Reactive Protein Total Protein Albumin Prealbumin Triglycerides Cholesterol LDL Cholesterol Direct HDL Cholesterol 25-OH Vitamin D Total PTH Intact Urine pH Urine WBC (Auto) Urine Creatinine Urine Total Protein Fluid Total Protein Vancomycin Trough Rheumatoid Factor Complement C4 Miscellaneous Test Crossmatch 11/30/16 12/01/16 12/01/16 23:35 00:06 03:35 WBC RBC Hgb Hct MCV MCH MCHC RDW Plt Count Lymph % (Auto) [place] % (Auto) Lymph # [place] # Baso # Seg Neutrophils % Seg Neuts % (Manual) Lymphocytes % (Manual) Monocytes % (Manual) Eosinophils % (Manual) Basophils % (Manual) Nucleated RBC % Seg Neutrophils # Seg Neutrophils # Man Lymphocytes # (Manual) Monocytes # (Manual) Eosinophils # (Manual) Basophils # (Manual) PT INR Fibrinogen dRVVT Confirm Interp Factor V Activity POC ABG pH POC ABG pCO2 POC ABG pO2 ABG pO2 ABG HCO3 ABG Base Excess ABG Hemoglobin 6.9 L Oxyhemoglobin Sodium Potassium Chloride Carbon Dioxide BUN 58 H Creatinine 1.8 H Glucose 146 H POC Glucose 151 H Lactic Acid Calcium Ionized Calcium Phosphorus Magnesium Direct Bilirubin AST ALT Alkaline Phosphatase Lactate Dehydrogenase Troponin T C-Reactive Protein Total Protein Albumin Prealbumin Triglycerides Cholesterol LDL Cholesterol Direct HDL Cholesterol 25-OH Vitamin D Total PTH Intact Urine pH Urine WBC (Auto) Urine Creatinine Urine Total Protein Fluid Total Protein Vancomycin Trough Rheumatoid Factor Complement C4 Miscellaneous Test Crossmatch 12/01/16 12/01/16 12/01/16 03:35 05:47 11:52 WBC 12.3 H RBC 2.82 L Hgb 7.8 L Hct 23.7 L MCV MCH MCHC RDW 16.7 H Plt Count Lymph % (Auto) [place] % (Auto) 9.8 H Lymph # [place] # 1.2 H Baso # Seg Neutrophils % Seg Neuts % (Manual) Lymphocytes % (Manual) Monocytes % (Manual) Eosinophils % (Manual) Basophils % (Manual) Nucleated RBC % Seg Neutrophils # 8.4 H Seg Neutrophils # Man Lymphocytes # (Manual) Monocytes # (Manual) Eosinophils # (Manual) Basophils # (Manual) PT INR Fibrinogen dRVVT Confirm Interp Factor V Activity POC ABG pH POC ABG pCO2 POC ABG pO2 ABG pO2 ABG HCO3 ABG Base Excess ABG Hemoglobin Oxyhemoglobin Sodium Potassium Chloride Carbon Dioxide BUN Creatinine Glucose POC Glucose 152 H 152 H Lactic Acid Calcium Ionized Calcium Phosphorus Magnesium Direct Bilirubin AST ALT Alkaline Phosphatase Lactate Dehydrogenase Troponin T C-Reactive Protein Total Protein Albumin Prealbumin Triglycerides Cholesterol LDL Cholesterol Direct HDL Cholesterol 25-OH Vitamin D Total PTH Intact Urine pH Urine WBC (Auto) Urine Creatinine Urine Total Protein Fluid Total Protein Vancomycin Trough Rheumatoid Factor Complement C4 Miscellaneous Test Crossmatch 12/01/16 12/01/16 12/02/16 17:40 23:41 05:00 WBC RBC Hgb Hct MCV MCH MCHC RDW Plt Count Lymph % (Auto) [place] % (Auto) Lymph # [place] # Baso # Seg Neutrophils % Seg Neuts % (Manual) Lymphocytes % (Manual) Monocytes % (Manual) Eosinophils % (Manual) Basophils % (Manual) Nucleated RBC % Seg Neutrophils # Seg Neutrophils # Man Lymphocytes # (Manual) Monocytes # (Manual) Eosinophils # (Manual) Basophils # (Manual) PT INR Fibrinogen dRVVT Confirm Interp Factor V Activity POC ABG pH POC ABG pCO2 POC ABG pO2 ABG pO2 ABG HCO3 ABG Base Excess ABG Hemoglobin Oxyhemoglobin Sodium Potassium Chloride Carbon Dioxide BUN 45 H Creatinine Glucose 115 H POC Glucose 140 H 144 H Lactic Acid Calcium Ionized Calcium Phosphorus Magnesium Direct Bilirubin AST ALT Alkaline Phosphatase Lactate Dehydrogenase Troponin T C-Reactive Protein Total Protein Albumin Prealbumin Triglycerides Cholesterol LDL Cholesterol Direct HDL Cholesterol 25-OH Vitamin D Total PTH Intact Urine pH Urine WBC (Auto) Urine Creatinine Urine Total Protein Fluid Total Protein Vancomycin Trough Rheumatoid Factor Complement C4 Miscellaneous Test Crossmatch 12/02/16 12/02/16 12/02/16 05:31 11:20 17:38 WBC RBC Hgb Hct MCV MCH MCHC RDW Plt Count Lymph % (Auto) [place] % (Auto) Lymph # [place] # Baso # Seg Neutrophils % Seg Neuts % (Manual) Lymphocytes % (Manual) Monocytes % (Manual) Eosinophils % (Manual) Basophils % (Manual) Nucleated RBC % Seg Neutrophils # Seg Neutrophils # Man Lymphocytes # (Manual) Monocytes # (Manual) Eosinophils # (Manual) Basophils # (Manual) PT INR Fibrinogen dRVVT Confirm Interp Factor V Activity POC ABG pH POC ABG pCO2 POC ABG pO2 ABG pO2 ABG HCO3 ABG Base Excess ABG Hemoglobin Oxyhemoglobin Sodium Potassium Chloride Carbon Dioxide BUN Creatinine Glucose POC Glucose 136 H 177 H 139 H Lactic Acid Calcium Ionized Calcium Phosphorus Magnesium Direct Bilirubin AST ALT Alkaline Phosphatase Lactate Dehydrogenase Troponin T C-Reactive Protein Total Protein Albumin Prealbumin Triglycerides Cholesterol LDL Cholesterol Direct HDL Cholesterol 25-OH Vitamin D Total PTH Intact Urine pH Urine WBC (Auto) Urine Creatinine Urine Total Protein Fluid Total Protein Vancomycin Trough Rheumatoid Factor Complement C4 Miscellaneous Test Crossmatch 12/02/16 12/03/16 12/03/16 23:43 04:00 04:00 WBC 20.4 H RBC 2.74 L Hgb 7.4 L Hct 23.6 L MCV MCH 27 L MCHC RDW 17.1 H Plt Count Lymph % (Auto) [place] % (Auto) Lymph # [place] # Baso # Seg Neutrophils % Seg Neuts % (Manual) 31.0 L Lymphocytes % (Manual) Monocytes % (Manual) Eosinophils % (Manual) Basophils % (Manual) Nucleated RBC % Seg Neutrophils # Seg Neutrophils # Man Lymphocytes # (Manual) Monocytes # (Manual) Eosinophils # (Manual) Basophils # (Manual) PT INR Fibrinogen dRVVT Confirm Interp Factor V Activity POC ABG pH POC ABG pCO2 POC ABG pO2 ABG pO2 ABG HCO3 ABG Base Excess ABG Hemoglobin Oxyhemoglobin Sodium Potassium Chloride Carbon Dioxide BUN 61 H Creatinine 1.6 H Glucose 119 H POC Glucose 158 H Lactic Acid Calcium Ionized Calcium Phosphorus Magnesium Direct Bilirubin AST ALT Alkaline Phosphatase Lactate Dehydrogenase Troponin T C-Reactive Protein Total Protein Albumin Prealbumin Triglycerides Cholesterol LDL Cholesterol Direct HDL Cholesterol 25-OH Vitamin D Total PTH Intact Urine pH Urine WBC (Auto) Urine Creatinine Urine Total Protein Fluid Total Protein Vancomycin Trough Rheumatoid Factor Complement C4 Miscellaneous Test Crossmatch 12/03/16 12/03/16 12/03/16 05:02 12:11 18:16 WBC RBC Hgb Hct MCV MCH MCHC RDW Plt Count Lymph % (Auto) [place] % (Auto) Lymph # [place] # Baso # Seg Neutrophils % Seg Neuts % (Manual) Lymphocytes % (Manual) Monocytes % (Manual) Eosinophils % (Manual) Basophils % (Manual) Nucleated RBC % Seg Neutrophils # Seg Neutrophils # Man Lymphocytes # (Manual) Monocytes # (Manual) Eosinophils # (Manual) Basophils # (Manual) PT INR Fibrinogen dRVVT Confirm Interp Factor V Activity POC ABG pH POC ABG pCO2 POC ABG pO2 ABG pO2 ABG HCO3 ABG Base Excess ABG Hemoglobin Oxyhemoglobin Sodium Potassium Chloride Carbon Dioxide BUN Creatinine Glucose POC Glucose 146 H 157 H 124 H Lactic Acid Calcium Ionized Calcium Phosphorus Magnesium Direct Bilirubin AST ALT Alkaline Phosphatase Lactate Dehydrogenase Troponin T C-Reactive Protein Total Protein Albumin Prealbumin Triglycerides Cholesterol LDL Cholesterol Direct HDL Cholesterol 25-OH Vitamin D Total PTH Intact Urine pH Urine WBC (Auto) Urine Creatinine Urine Total Protein Fluid Total Protein Vancomycin Trough Rheumatoid Factor Complement C4 Miscellaneous Test Crossmatch 12/03/16 12/04/16 12/04/16 23:41 04:00 04:45 WBC RBC Hgb Hct MCV MCH MCHC RDW Plt Count Lymph % (Auto) [place] % (Auto) Lymph # [place] # Baso # Seg Neutrophils % Seg Neuts % (Manual) Lymphocytes % (Manual) Monocytes % (Manual) Eosinophils % (Manual) Basophils % (Manual) Nucleated RBC % Seg Neutrophils # Seg Neutrophils # Man Lymphocytes # (Manual) Monocytes # (Manual) Eosinophils # (Manual) Basophils # (Manual) PT INR Fibrinogen dRVVT Confirm Interp Factor V Activity POC ABG pH POC ABG pCO2 POC ABG pO2 ABG pO2 ABG HCO3 ABG Base Excess ABG Hemoglobin Oxyhemoglobin Sodium Potassium Chloride Carbon Dioxide BUN 76 H Creatinine 1.6 H Glucose POC Glucose 130 H 136 H Lactic Acid Calcium Ionized Calcium Phosphorus Magnesium Direct Bilirubin AST ALT Alkaline Phosphatase 155 H Lactate Dehydrogenase Troponin T C-Reactive Protein Total Protein 5.5 L Albumin 1.5 L Prealbumin Triglycerides Cholesterol LDL Cholesterol Direct HDL Cholesterol 25-OH Vitamin D Total PTH Intact Urine pH Urine WBC (Auto) Urine Creatinine Urine Total Protein Fluid Total Protein Vancomycin Trough Rheumatoid Factor Complement C4 Miscellaneous Test Crossmatch 12/04/16 12/04/16 12/05/16 12:08 17:23 00:10 WBC RBC Hgb Hct MCV MCH MCHC RDW Plt Count Lymph % (Auto) [place] % (Auto) Lymph # [place] # Baso # Seg Neutrophils % Seg Neuts % (Manual) Lymphocytes % (Manual) Monocytes % (Manual) Eosinophils % (Manual) Basophils % (Manual) Nucleated RBC % Seg Neutrophils # Seg Neutrophils # Man Lymphocytes # (Manual) Monocytes # (Manual) Eosinophils # (Manual) Basophils # (Manual) PT INR Fibrinogen dRVVT Confirm Interp Factor V Activity POC ABG pH POC ABG pCO2 POC ABG pO2 ABG pO2 ABG HCO3 ABG Base Excess ABG Hemoglobin Oxyhemoglobin Sodium Potassium Chloride Carbon Dioxide BUN Creatinine Glucose POC Glucose 114 H 129 H 124 H Lactic Acid Calcium Ionized Calcium Phosphorus Magnesium Direct Bilirubin AST ALT Alkaline Phosphatase Lactate Dehydrogenase Troponin T C-Reactive Protein Total Protein Albumin Prealbumin Triglycerides Cholesterol LDL Cholesterol Direct HDL Cholesterol 25-OH Vitamin D Total PTH Intact Urine pH Urine WBC (Auto) Urine Creatinine Urine Total Protein Fluid Total Protein Vancomycin Trough Rheumatoid Factor Complement C4 Miscellaneous Test Crossmatch 12/05/16 12/05/16 12/05/16 05:00 05:00 05:18 WBC RBC Hgb Hct MCV MCH MCHC RDW Plt Count Lymph % (Auto) [place] % (Auto) Lymph # [place] # Baso # Seg Neutrophils % Seg Neuts % (Manual) Lymphocytes % (Manual) Monocytes % (Manual) Eosinophils % (Manual) Basophils % (Manual) Nucleated RBC % Seg Neutrophils # Seg Neutrophils # Man Lymphocytes # (Manual) Monocytes # (Manual) Eosinophils # (Manual) Basophils # (Manual) PT INR Fibrinogen dRVVT Confirm Interp Factor V Activity POC ABG pH POC ABG pCO2 POC ABG pO2 ABG pO2 ABG HCO3 ABG Base Excess ABG Hemoglobin Oxyhemoglobin Sodium Potassium Chloride Carbon Dioxide 21 L BUN 85 H Creatinine 1.9 H Glucose 131 H POC Glucose 154 H Lactic Acid Calcium Ionized Calcium Phosphorus Magnesium Direct Bilirubin AST ALT Alkaline Phosphatase Lactate Dehydrogenase Troponin T C-Reactive Protein 19.30 H Total Protein Albumin Prealbumin Triglycerides Cholesterol LDL Cholesterol Direct HDL Cholesterol 25-OH Vitamin D Total PTH Intact Urine pH Urine WBC (Auto) Urine Creatinine Urine Total Protein Fluid Total Protein Vancomycin Trough Rheumatoid Factor Complement C4 Miscellaneous Test Crossmatch 12/05/16 12/05/16 12/05/16 11:43 17:46 23:25 WBC RBC Hgb Hct MCV MCH MCHC RDW Plt Count Lymph % (Auto) [place] % (Auto) Lymph # [place] # Baso # Seg Neutrophils % Seg Neuts % (Manual) Lymphocytes % (Manual) Monocytes % (Manual) Eosinophils % (Manual) Basophils % (Manual) Nucleated RBC % Seg Neutrophils # Seg Neutrophils # Man Lymphocytes # (Manual) Monocytes # (Manual) Eosinophils # (Manual) Basophils # (Manual) PT INR Fibrinogen dRVVT Confirm Interp Factor V Activity POC ABG pH POC ABG pCO2 POC ABG pO2 ABG pO2 ABG HCO3 ABG Base Excess ABG Hemoglobin Oxyhemoglobin Sodium Potassium Chloride Carbon Dioxide BUN Creatinine Glucose POC Glucose 117 H 113 H 111 H Lactic Acid Calcium Ionized Calcium Phosphorus Magnesium Direct Bilirubin AST ALT Alkaline Phosphatase Lactate Dehydrogenase Troponin T C-Reactive Protein Total Protein Albumin Prealbumin Triglycerides Cholesterol LDL Cholesterol Direct HDL Cholesterol 25-OH Vitamin D Total PTH Intact Urine pH Urine WBC (Auto) Urine Creatinine Urine Total Protein Fluid Total Protein Vancomycin Trough Rheumatoid Factor Complement C4 Miscellaneous Test Crossmatch 12/05/16 12/06/16 12/06/16 Unknown 04:58 06:00 WBC RBC Hgb Hct MCV MCH MCHC RDW Plt Count Lymph % (Auto) [place] % (Auto) Lymph # [place] # Baso # Seg Neutrophils % Seg Neuts % (Manual) Lymphocytes % (Manual) Monocytes % (Manual) Eosinophils % (Manual) Basophils % (Manual) Nucleated RBC % Seg Neutrophils # Seg Neutrophils # Man Lymphocytes # (Manual) Monocytes # (Manual) Eosinophils # (Manual) Basophils # (Manual) PT INR Fibrinogen dRVVT Confirm Interp Factor V Activity POC ABG pH POC ABG pCO2 POC ABG pO2 ABG pO2 75.2 L ABG HCO3 ABG Base Excess -3.4 L ABG Hemoglobin 7.4 L Oxyhemoglobin 94.5 L Sodium Potassium Chloride Carbon Dioxide 20 L BUN 99 H Creatinine 2.1 H Glucose 126 H POC Glucose 145 H Lactic Acid Calcium Ionized Calcium Phosphorus 4.80 H Magnesium Direct Bilirubin AST ALT Alkaline Phosphatase Lactate Dehydrogenase Troponin T C-Reactive Protein Total Protein Albumin Prealbumin Triglycerides Cholesterol LDL Cholesterol Direct HDL Cholesterol 25-OH Vitamin D Total PTH Intact Urine pH Urine WBC (Auto) Urine Creatinine Urine Total Protein Fluid Total Protein Vancomycin Trough Rheumatoid Factor Complement C4 Miscellaneous Test Crossmatch 12/06/16 12/06/16 12/06/16 06:46 11:54 17:55 WBC RBC Hgb 8.3 L Hct 26.4 L MCV MCH MCHC RDW Plt Count Lymph % (Auto) [place] % (Auto) Lymph # [place] # Baso # Seg Neutrophils % Seg Neuts % (Manual) Lymphocytes % (Manual) Monocytes % (Manual) Eosinophils % (Manual) Basophils % (Manual) Nucleated RBC % Seg Neutrophils # Seg Neutrophils # Man Lymphocytes # (Manual) Monocytes # (Manual) Eosinophils # (Manual) Basophils # (Manual) PT INR Fibrinogen dRVVT Confirm Interp Factor V Activity POC ABG pH POC ABG pCO2 POC ABG pO2 ABG pO2 ABG HCO3 ABG Base Excess ABG Hemoglobin Oxyhemoglobin Sodium Potassium Chloride Carbon Dioxide BUN Creatinine Glucose POC Glucose 126 H 157 H Lactic Acid Calcium Ionized Calcium Phosphorus Magnesium Direct Bilirubin AST ALT Alkaline Phosphatase Lactate Dehydrogenase Troponin T C-Reactive Protein Total Protein Albumin Prealbumin Triglycerides Cholesterol LDL Cholesterol Direct HDL Cholesterol 25-OH Vitamin D Total PTH Intact Urine pH Urine WBC (Auto) Urine Creatinine Urine Total Protein Fluid Total Protein Vancomycin Trough Rheumatoid Factor Complement C4 Miscellaneous Test Crossmatch 12/06/16 12/07/16 12/07/16 23:59 05:34 06:30 WBC RBC Hgb Hct MCV MCH MCHC RDW Plt Count Lymph % (Auto) [place] % (Auto) Lymph # [place] # Baso # Seg Neutrophils % Seg Neuts % (Manual) Lymphocytes % (Manual) Monocytes % (Manual) Eosinophils % (Manual) Basophils % (Manual) Nucleated RBC % Seg Neutrophils # Seg Neutrophils # Man Lymphocytes # (Manual) Monocytes # (Manual) Eosinophils # (Manual) Basophils # (Manual) PT INR Fibrinogen dRVVT Confirm Interp Factor V Activity POC ABG pH POC ABG pCO2 POC ABG pO2 ABG pO2 ABG HCO3 ABG Base Excess ABG Hemoglobin Oxyhemoglobin Sodium Potassium Chloride Carbon Dioxide BUN 67 H Creatinine 1.4 H Glucose 126 H POC Glucose 129 H 129 H Lactic Acid Calcium Ionized Calcium Phosphorus Magnesium Direct Bilirubin AST ALT Alkaline Phosphatase Lactate Dehydrogenase Troponin T C-Reactive Protein Total Protein Albumin Prealbumin Triglycerides Cholesterol LDL Cholesterol Direct HDL Cholesterol 25-OH Vitamin D Total PTH Intact Urine pH Urine WBC (Auto) Urine Creatinine Urine Total Protein Fluid Total Protein Vancomycin Trough Rheumatoid Factor Complement C4 Miscellaneous Test Crossmatch 12/07/16 12/07/16 12/07/16 06:30 08:00 09:45 WBC 18.8 H RBC 2.52 L Hgb 6.9 L 6.8 L Hct 21.2 L 21.1 L MCV MCH 27 L MCHC RDW 18.0 H Plt Count Lymph % (Auto) [place] % (Auto) 9.9 H Lymph # [place] # 1.9 H Baso # Seg Neutrophils % 71.8 H Seg Neuts % (Manual) Lymphocytes % (Manual) Monocytes % (Manual) Eosinophils % (Manual) Basophils % (Manual) Nucleated RBC % Seg Neutrophils # 13.5 H Seg Neutrophils # Man Lymphocytes # (Manual) Monocytes # (Manual) Eosinophils # (Manual) Basophils # (Manual) PT INR Fibrinogen dRVVT Confirm Interp Factor V Activity POC ABG pH POC ABG pCO2 POC ABG pO2 ABG pO2 ABG HCO3 ABG Base Excess ABG Hemoglobin Oxyhemoglobin Sodium Potassium Chloride Carbon Dioxide BUN Creatinine Glucose POC Glucose Lactic Acid Calcium Ionized Calcium Phosphorus Magnesium Direct Bilirubin AST ALT Alkaline Phosphatase Lactate Dehydrogenase Troponin T C-Reactive Protein Total Protein Albumin Prealbumin Triglycerides Cholesterol LDL Cholesterol Direct HDL Cholesterol 25-OH Vitamin D Total PTH Intact Urine pH Urine WBC (Auto) Urine Creatinine Urine Total Protein Fluid Total Protein Vancomycin Trough Rheumatoid Factor Complement C4 Miscellaneous Test Crossmatch See Detail 12/07/16 12/07/16 12/07/16 11:44 18:19 23:59 WBC RBC Hgb Hct MCV MCH MCHC RDW Plt Count Lymph % (Auto) [place] % (Auto) Lymph # [place] # Baso # Seg Neutrophils % Seg Neuts % (Manual) Lymphocytes % (Manual) Monocytes % (Manual) Eosinophils % (Manual) Basophils % (Manual) Nucleated RBC % Seg Neutrophils # Seg Neutrophils # Man Lymphocytes # (Manual) Monocytes # (Manual) Eosinophils # (Manual) Basophils # (Manual) PT INR Fibrinogen dRVVT Confirm Interp Factor V Activity POC ABG pH POC ABG pCO2 POC ABG pO2 ABG pO2 ABG HCO3 ABG Base Excess ABG Hemoglobin Oxyhemoglobin Sodium Potassium Chloride Carbon Dioxide BUN Creatinine Glucose POC Glucose 137 H 138 H 133 H Lactic Acid Calcium Ionized Calcium Phosphorus Magnesium Direct Bilirubin AST ALT Alkaline Phosphatase Lactate Dehydrogenase Troponin T C-Reactive Protein Total Protein Albumin Prealbumin Triglycerides Cholesterol LDL Cholesterol Direct HDL Cholesterol 25-OH Vitamin D Total PTH Intact Urine pH Urine WBC (Auto) Urine Creatinine Urine Total Protein Fluid Total Protein Vancomycin Trough Rheumatoid Factor Complement C4 Miscellaneous Test Crossmatch 12/08/16 12/08/16 12/08/16 05:25 05:30 05:30 WBC 23.8 H RBC 2.88 L Hgb 8.1 L Hct 24.3 L MCV MCH MCHC RDW 16.7 H Plt Count Lymph % (Auto) [place] % (Auto) Lymph # [place] # Baso # Seg Neutrophils % Seg Neuts % (Manual) 76.0 H Lymphocytes % (Manual) 9.0 L Monocytes % (Manual) 9.0 H Eosinophils % (Manual) Basophils % (Manual) Nucleated RBC % Seg Neutrophils # Seg Neutrophils # Man 18.1 H Lymphocytes # (Manual) Monocytes # (Manual) 2.1 H Eosinophils # (Manual) Basophils # (Manual) PT INR Fibrinogen dRVVT Confirm Interp Factor V Activity POC ABG pH POC ABG pCO2 POC ABG pO2 ABG pO2 ABG HCO3 ABG Base Excess ABG Hemoglobin Oxyhemoglobin Sodium Potassium Chloride Carbon Dioxide 21 L BUN 76 H Creatinine 1.6 H Glucose 133 H POC Glucose 177 H Lactic Acid Calcium Ionized Calcium Phosphorus Magnesium Direct Bilirubin AST ALT Alkaline Phosphatase Lactate Dehydrogenase Troponin T C-Reactive Protein Total Protein Albumin Prealbumin Triglycerides Cholesterol LDL Cholesterol Direct HDL Cholesterol 25-OH Vitamin D Total PTH Intact Urine pH Urine WBC (Auto) Urine Creatinine Urine Total Protein Fluid Total Protein Vancomycin Trough Rheumatoid Factor Complement C4 Miscellaneous Test Crossmatch 12/08/16 12/08/16 12/09/16 11:45 18:00 00:00 WBC RBC Hgb Hct MCV MCH MCHC RDW Plt Count Lymph % (Auto) [place] % (Auto) Lymph # [place] # Baso # Seg Neutrophils % Seg Neuts % (Manual) Lymphocytes % (Manual) Monocytes % (Manual) Eosinophils % (Manual) Basophils % (Manual) Nucleated RBC % Seg Neutrophils # Seg Neutrophils # Man Lymphocytes # (Manual) Monocytes # (Manual) Eosinophils # (Manual) Basophils # (Manual) PT INR Fibrinogen dRVVT Confirm Interp Factor V Activity POC ABG pH POC ABG pCO2 POC ABG pO2 ABG pO2 ABG HCO3 ABG Base Excess ABG Hemoglobin Oxyhemoglobin Sodium Potassium Chloride Carbon Dioxide BUN Creatinine Glucose POC Glucose 163 H 123 H 137 H Lactic Acid Calcium Ionized Calcium Phosphorus Magnesium Direct Bilirubin AST ALT Alkaline Phosphatase Lactate Dehydrogenase Troponin T C-Reactive Protein Total Protein Albumin Prealbumin Triglycerides Cholesterol LDL Cholesterol Direct HDL Cholesterol 25-OH Vitamin D Total PTH Intact Urine pH Urine WBC (Auto) Urine Creatinine Urine Total Protein Fluid Total Protein Vancomycin Trough Rheumatoid Factor Complement C4 Miscellaneous Test Crossmatch 12/09/16 12/09/16 12/09/16 05:34 06:00 06:00 WBC 15.5 H RBC 2.87 L Hgb 8.0 L Hct 24.2 L MCV MCH MCHC RDW 17.2 H Plt Count Lymph % (Auto) [place] % (Auto) 11.6 H Lymph # [place] # 1.8 H Baso # Seg Neutrophils % 70.8 H Seg Neuts % (Manual) Lymphocytes % (Manual) Monocytes % (Manual) Eosinophils % (Manual) Basophils % (Manual) Nucleated RBC % Seg Neutrophils # 11.0 H Seg Neutrophils # Man Lymphocytes # (Manual) Monocytes # (Manual) Eosinophils # (Manual) Basophils # (Manual) PT INR Fibrinogen dRVVT Confirm Interp Factor V Activity POC ABG pH POC ABG pCO2 POC ABG pO2 ABG pO2 ABG HCO3 ABG Base Excess ABG Hemoglobin Oxyhemoglobin Sodium Potassium Chloride Carbon Dioxide BUN 51 H Creatinine Glucose 117 H POC Glucose 136 H Lactic Acid Calcium Ionized Calcium Phosphorus Magnesium Direct Bilirubin AST ALT Alkaline Phosphatase Lactate Dehydrogenase Troponin T C-Reactive Protein Total Protein Albumin Prealbumin Triglycerides Cholesterol LDL Cholesterol Direct HDL Cholesterol 25-OH Vitamin D Total PTH Intact Urine pH Urine WBC (Auto) Urine Creatinine Urine Total Protein Fluid Total Protein Vancomycin Trough Rheumatoid Factor Complement C4 Miscellaneous Test Crossmatch 12/09/16 12/09/16 12/09/16 12:29 17:52 23:10 WBC RBC Hgb Hct MCV MCH MCHC RDW Plt Count Lymph % (Auto) [place] % (Auto) Lymph # [place] # Baso # Seg Neutrophils % Seg Neuts % (Manual) Lymphocytes % (Manual) Monocytes % (Manual) Eosinophils % (Manual) Basophils % (Manual) Nucleated RBC % Seg Neutrophils # Seg Neutrophils # Man Lymphocytes # (Manual) Monocytes # (Manual) Eosinophils # (Manual) Basophils # (Manual) PT INR Fibrinogen dRVVT Confirm Interp Factor V Activity POC ABG pH POC ABG pCO2 POC ABG pO2 ABG pO2 ABG HCO3 ABG Base Excess ABG Hemoglobin Oxyhemoglobin Sodium Potassium Chloride Carbon Dioxide BUN Creatinine Glucose POC Glucose 139 H 140 H 129 H Lactic Acid Calcium Ionized Calcium Phosphorus Magnesium Direct Bilirubin AST ALT Alkaline Phosphatase Lactate Dehydrogenase Troponin T C-Reactive Protein Total Protein Albumin Prealbumin Triglycerides Cholesterol LDL Cholesterol Direct HDL Cholesterol 25-OH Vitamin D Total PTH Intact Urine pH Urine WBC (Auto) Urine Creatinine Urine Total Protein Fluid Total Protein Vancomycin Trough Rheumatoid Factor Complement C4 Miscellaneous Test Crossmatch 12/10/16 12/10/16 12/10/16 05:00 05:00 06:54 WBC 15.7 H RBC 2.87 L Hgb 8.2 L Hct 24.4 L MCV MCH MCHC RDW 17.2 H Plt Count Lymph % (Auto) [place] % (Auto) 8.3 H Lymph # [place] # 1.3 H Baso # Seg Neutrophils % 72.8 H Seg Neuts % (Manual) Lymphocytes % (Manual) Monocytes % (Manual) Eosinophils % (Manual) Basophils % (Manual) Nucleated RBC % Seg Neutrophils # 11.4 H Seg Neutrophils # Man Lymphocytes # (Manual) Monocytes # (Manual) Eosinophils # (Manual) Basophils # (Manual) PT INR Fibrinogen dRVVT Confirm Interp Factor V Activity POC ABG pH POC ABG pCO2 POC ABG pO2 ABG pO2 ABG HCO3 ABG Base Excess ABG Hemoglobin Oxyhemoglobin Sodium Potassium Chloride Carbon Dioxide BUN 64 H Creatinine 1.4 H Glucose 134 H POC Glucose 154 H Lactic Acid Calcium Ionized Calcium Phosphorus Magnesium Direct Bilirubin AST ALT Alkaline Phosphatase Lactate Dehydrogenase Troponin T C-Reactive Protein Total Protein Albumin Prealbumin Triglycerides Cholesterol LDL Cholesterol Direct HDL Cholesterol 25-OH Vitamin D Total PTH Intact Urine pH Urine WBC (Auto) Urine Creatinine Urine Total Protein Fluid Total Protein Vancomycin Trough Rheumatoid Factor Complement C4 Miscellaneous Test Crossmatch 12/10/16 12/10/16 12/10/16 11:58 17:29 23:52 WBC RBC Hgb Hct MCV MCH MCHC RDW Plt Count Lymph % (Auto) [place] % (Auto) Lymph # [place] # Baso # Seg Neutrophils % Seg Neuts % (Manual) Lymphocytes % (Manual) Monocytes % (Manual) Eosinophils % (Manual) Basophils % (Manual) Nucleated RBC % Seg Neutrophils # Seg Neutrophils # Man Lymphocytes # (Manual) Monocytes # (Manual) Eosinophils # (Manual) Basophils # (Manual) PT INR Fibrinogen dRVVT Confirm Interp Factor V Activity POC ABG pH POC ABG pCO2 POC ABG pO2 ABG pO2 ABG HCO3 ABG Base Excess ABG Hemoglobin Oxyhemoglobin Sodium Potassium Chloride Carbon Dioxide BUN Creatinine Glucose POC Glucose 144 H 163 H 125 H Lactic Acid Calcium Ionized Calcium Phosphorus Magnesium Direct Bilirubin AST ALT Alkaline Phosphatase Lactate Dehydrogenase Troponin T C-Reactive Protein Total Protein Albumin Prealbumin Triglycerides Cholesterol LDL Cholesterol Direct HDL Cholesterol 25-OH Vitamin D Total PTH Intact Urine pH Urine WBC (Auto) Urine Creatinine Urine Total Protein Fluid Total Protein Vancomycin Trough Rheumatoid Factor Complement C4 Miscellaneous Test Crossmatch 12/11/16 12/11/16 12/11/16 05:38 06:30 06:30 WBC 14.4 H RBC 2.76 L Hgb 7.7 L Hct 23.4 L MCV MCH MCHC RDW 17.2 H Plt Count Lymph % (Auto) [place] % (Auto) 8.8 H Lymph # [place] # 1.3 H Baso # Seg Neutrophils % 72.5 H Seg Neuts % (Manual) Lymphocytes % (Manual) Monocytes % (Manual) Eosinophils % (Manual) Basophils % (Manual) Nucleated RBC % Seg Neutrophils # 10.5 H Seg Neutrophils # Man Lymphocytes # (Manual) Monocytes # (Manual) Eosinophils # (Manual) Basophils # (Manual) PT INR Fibrinogen dRVVT Confirm Interp Factor V Activity POC ABG pH POC ABG pCO2 POC ABG pO2 ABG pO2 ABG HCO3 ABG Base Excess ABG Hemoglobin Oxyhemoglobin Sodium Potassium Chloride Carbon Dioxide BUN 43 H Creatinine Glucose 124 H POC Glucose 141 H Lactic Acid Calcium 8.3 L Ionized Calcium Phosphorus Magnesium 1.60 L Direct Bilirubin AST ALT Alkaline Phosphatase Lactate Dehydrogenase Troponin T C-Reactive Protein Total Protein Albumin Prealbumin Triglycerides Cholesterol LDL Cholesterol Direct HDL Cholesterol 25-OH Vitamin D Total PTH Intact Urine pH Urine WBC (Auto) Urine Creatinine Urine Total Protein Fluid Total Protein Vancomycin Trough Rheumatoid Factor Complement C4 Miscellaneous Test Crossmatch 12/11/16 12/11/16 12/11/16 11:15 17:59 23:48 WBC RBC Hgb Hct MCV MCH MCHC RDW Plt Count Lymph % (Auto) [place] % (Auto) Lymph # [place] # Baso # Seg Neutrophils % Seg Neuts % (Manual) Lymphocytes % (Manual) Monocytes % (Manual) Eosinophils % (Manual) Basophils % (Manual) Nucleated RBC % Seg Neutrophils # Seg Neutrophils # Man Lymphocytes # (Manual) Monocytes # (Manual) Eosinophils # (Manual) Basophils # (Manual) PT INR Fibrinogen dRVVT Confirm Interp Factor V Activity POC ABG pH POC ABG pCO2 POC ABG pO2 ABG pO2 ABG HCO3 ABG Base Excess ABG Hemoglobin Oxyhemoglobin Sodium Potassium Chloride Carbon Dioxide BUN Creatinine Glucose POC Glucose 188 H 106 H 119 H Lactic Acid Calcium Ionized Calcium Phosphorus Magnesium Direct Bilirubin AST ALT Alkaline Phosphatase Lactate Dehydrogenase Troponin T C-Reactive Protein Total Protein Albumin Prealbumin Triglycerides Cholesterol LDL Cholesterol Direct HDL Cholesterol 25-OH Vitamin D Total PTH Intact Urine pH Urine WBC (Auto) Urine Creatinine Urine Total Protein Fluid Total Protein Vancomycin Trough Rheumatoid Factor Complement C4 Miscellaneous Test Crossmatch 12/12/16 12/12/16 12/12/16 05:00 06:01 12:20 WBC 16.7 H RBC 2.87 L Hgb 8.0 L Hct 24.2 L MCV MCH MCHC RDW 17.6 H Plt Count Lymph % (Auto) [place] % (Auto) Lymph # [place] # 1.2 H Baso # Seg Neutrophils % 75.3 H Seg Neuts % (Manual) Lymphocytes % (Manual) Monocytes % (Manual) Eosinophils % (Manual) Basophils % (Manual) Nucleated RBC % Seg Neutrophils # 12.6 H Seg Neutrophils # Man Lymphocytes # (Manual) Monocytes # (Manual) Eosinophils # (Manual) Basophils # (Manual) PT INR Fibrinogen dRVVT Confirm Interp Factor V Activity POC ABG pH POC ABG pCO2 POC ABG pO2 ABG pO2 ABG HCO3 ABG Base Excess ABG Hemoglobin Oxyhemoglobin Sodium Potassium Chloride Carbon Dioxide BUN Creatinine Glucose POC Glucose 134 H 149 H Lactic Acid Calcium Ionized Calcium Phosphorus Magnesium Direct Bilirubin AST ALT Alkaline Phosphatase Lactate Dehydrogenase Troponin T C-Reactive Protein Total Protein Albumin Prealbumin Triglycerides Cholesterol LDL Cholesterol Direct HDL Cholesterol 25-OH Vitamin D Total PTH Intact Urine pH Urine WBC (Auto) Urine Creatinine Urine Total Protein Fluid Total Protein Vancomycin Trough Rheumatoid Factor Complement C4 Miscellaneous Test Crossmatch 12/12/16 12/12/16 12/12/16 17:38 23:01 Unknown WBC RBC Hgb Hct MCV MCH MCHC RDW Plt Count Lymph % (Auto) [place] % (Auto) Lymph # [place] # Baso # Seg Neutrophils % Seg Neuts % (Manual) Lymphocytes % (Manual) Monocytes % (Manual) Eosinophils % (Manual) Basophils % (Manual) Nucleated RBC % Seg Neutrophils # Seg Neutrophils # Man Lymphocytes # (Manual) Monocytes # (Manual) Eosinophils # (Manual) Basophils # (Manual) PT INR Fibrinogen dRVVT Confirm Interp Factor V Activity POC ABG pH POC ABG pCO2 POC ABG pO2 ABG pO2 ABG HCO3 ABG Base Excess ABG Hemoglobin Oxyhemoglobin Sodium Potassium Chloride Carbon Dioxide BUN 60 H Creatinine 1.3 H Glucose 126 H POC Glucose 127 H 144 H Lactic Acid Calcium Ionized Calcium Phosphorus Magnesium Direct Bilirubin AST ALT Alkaline Phosphatase Lactate Dehydrogenase Troponin T C-Reactive Protein Total Protein Albumin Prealbumin Triglycerides Cholesterol LDL Cholesterol Direct HDL Cholesterol 25-OH Vitamin D Total PTH Intact Urine pH Urine WBC (Auto) Urine Creatinine Urine Total Protein Fluid Total Protein Vancomycin Trough Rheumatoid Factor Complement C4 Miscellaneous Test Crossmatch 12/13/16 12/13/16 12/13/16 04:00 04:00 05:19 WBC 18.7 H RBC 2.89 L Hgb 8.3 L Hct 24.6 L MCV MCH MCHC RDW 17.5 H Plt Count Lymph % (Auto) [place] % (Auto) Lymph # [place] # 1.3 H Baso # Seg Neutrophils % 71.5 H Seg Neuts % (Manual) Lymphocytes % (Manual) Monocytes % (Manual) Eosinophils % (Manual) Basophils % (Manual) Nucleated RBC % Seg Neutrophils # 13.4 H Seg Neutrophils # Man Lymphocytes # (Manual) Monocytes # (Manual) Eosinophils # (Manual) Basophils # (Manual) PT INR Fibrinogen dRVVT Confirm Interp Factor V Activity POC ABG pH POC ABG pCO2 POC ABG pO2 ABG pO2 ABG HCO3 ABG Base Excess ABG Hemoglobin Oxyhemoglobin Sodium Potassium Chloride Carbon Dioxide BUN 73 H Creatinine 1.5 H Glucose 141 H POC Glucose 171 H Lactic Acid Calcium Ionized Calcium Phosphorus Magnesium Direct Bilirubin AST ALT Alkaline Phosphatase Lactate Dehydrogenase Troponin T C-Reactive Protein Total Protein Albumin Prealbumin Triglycerides Cholesterol LDL Cholesterol Direct HDL Cholesterol 25-OH Vitamin D Total PTH Intact Urine pH Urine WBC (Auto) Urine Creatinine Urine Total Protein Fluid Total Protein Vancomycin Trough Rheumatoid Factor Complement C4 Miscellaneous Test Crossmatch 12/13/16 12/13/16 12/14/16 12:28 16:48 00:01 WBC RBC Hgb Hct MCV MCH MCHC RDW Plt Count Lymph % (Auto) [place] % (Auto) Lymph # [place] # Baso # Seg Neutrophils % Seg Neuts % (Manual) Lymphocytes % (Manual) Monocytes % (Manual) Eosinophils % (Manual) Basophils % (Manual) Nucleated RBC % Seg Neutrophils # Seg Neutrophils # Man Lymphocytes # (Manual) Monocytes # (Manual) Eosinophils # (Manual) Basophils # (Manual) PT INR Fibrinogen dRVVT Confirm Interp Factor V Activity POC ABG pH POC ABG pCO2 POC ABG pO2 ABG pO2 ABG HCO3 ABG Base Excess ABG Hemoglobin Oxyhemoglobin Sodium Potassium Chloride Carbon Dioxide BUN Creatinine Glucose POC Glucose 206 H 173 H 139 H Lactic Acid Calcium Ionized Calcium Phosphorus Magnesium Direct Bilirubin AST ALT Alkaline Phosphatase Lactate Dehydrogenase Troponin T C-Reactive Protein Total Protein Albumin Prealbumin Triglycerides Cholesterol LDL Cholesterol Direct HDL Cholesterol 25-OH Vitamin D Total PTH Intact Urine pH Urine WBC (Auto) Urine Creatinine Urine Total Protein Fluid Total Protein Vancomycin Trough Rheumatoid Factor Complement C4 Miscellaneous Test Crossmatch 12/14/16 12/14/16 12/14/16 05:16 06:10 11:17 WBC RBC Hgb Hct MCV MCH MCHC RDW Plt Count Lymph % (Auto) [place] % (Auto) Lymph # [place] # Baso # Seg Neutrophils % Seg Neuts % (Manual) Lymphocytes % (Manual) Monocytes % (Manual) Eosinophils % (Manual) Basophils % (Manual) Nucleated RBC % Seg Neutrophils # Seg Neutrophils # Man Lymphocytes # (Manual) Monocytes # (Manual) Eosinophils # (Manual) Basophils # (Manual) PT INR Fibrinogen dRVVT Confirm Interp Factor V Activity POC ABG pH POC ABG pCO2 POC ABG pO2 ABG pO2 ABG HCO3 ABG Base Excess ABG Hemoglobin Oxyhemoglobin Sodium Potassium Chloride Carbon Dioxide BUN 57 H Creatinine 1.4 H Glucose 135 H POC Glucose 158 H 137 H Lactic Acid Calcium Ionized Calcium Phosphorus Magnesium Direct Bilirubin AST ALT Alkaline Phosphatase Lactate Dehydrogenase Troponin T C-Reactive Protein Total Protein Albumin Prealbumin Triglycerides Cholesterol LDL Cholesterol Direct HDL Cholesterol 25-OH Vitamin D Total PTH Intact Urine pH Urine WBC (Auto) Urine Creatinine Urine Total Protein Fluid Total Protein Vancomycin Trough Rheumatoid Factor Complement C4 Miscellaneous Test Crossmatch 12/14/16 12/14/16 12/15/16 17:52 23:27 04:00 WBC RBC Hgb Hct MCV MCH MCHC RDW Plt Count Lymph % (Auto) [place] % (Auto) Lymph # [place] # Baso # Seg Neutrophils % Seg Neuts % (Manual) Lymphocytes % (Manual) Monocytes % (Manual) Eosinophils % (Manual) Basophils % (Manual) Nucleated RBC % Seg Neutrophils # Seg Neutrophils # Man Lymphocytes # (Manual) Monocytes # (Manual) Eosinophils # (Manual) Basophils # (Manual) PT INR Fibrinogen dRVVT Confirm Interp Factor V Activity POC ABG pH POC ABG pCO2 POC ABG pO2 ABG pO2 ABG HCO3 ABG Base Excess ABG Hemoglobin Oxyhemoglobin Sodium Potassium Chloride 97.9 L Carbon Dioxide BUN 75 H Creatinine 1.6 H Glucose 122 H POC Glucose 149 H 163 H Lactic Acid Calcium Ionized Calcium Phosphorus 5.20 H Magnesium Direct Bilirubin AST ALT Alkaline Phosphatase Lactate Dehydrogenase Troponin T C-Reactive Protein Total Protein Albumin Prealbumin Triglycerides Cholesterol LDL Cholesterol Direct HDL Cholesterol 25-OH Vitamin D Total PTH Intact Urine pH Urine WBC (Auto) Urine Creatinine Urine Total Protein Fluid Total Protein Vancomycin Trough Rheumatoid Factor Complement C4 Miscellaneous Test Crossmatch 12/15/16 12/15/16 12/15/16 05:50 11:24 17:01 WBC RBC Hgb Hct MCV MCH MCHC RDW Plt Count Lymph % (Auto) [place] % (Auto) Lymph # [place] # Baso # Seg Neutrophils % Seg Neuts % (Manual) Lymphocytes % (Manual) Monocytes % (Manual) Eosinophils % (Manual) Basophils % (Manual) Nucleated RBC % Seg Neutrophils # Seg Neutrophils # Man Lymphocytes # (Manual) Monocytes # (Manual) Eosinophils # (Manual) Basophils # (Manual) PT INR Fibrinogen dRVVT Confirm Interp Factor V Activity POC ABG pH POC ABG pCO2 POC ABG pO2 ABG pO2 ABG HCO3 ABG Base Excess ABG Hemoglobin Oxyhemoglobin Sodium Potassium Chloride Carbon Dioxide BUN Creatinine Glucose POC Glucose 150 H 146 H 167 H Lactic Acid Calcium Ionized Calcium Phosphorus Magnesium Direct Bilirubin AST ALT Alkaline Phosphatase Lactate Dehydrogenase Troponin T C-Reactive Protein Total Protein Albumin Prealbumin Triglycerides Cholesterol LDL Cholesterol Direct HDL Cholesterol 25-OH Vitamin D Total PTH Intact Urine pH Urine WBC (Auto) Urine Creatinine Urine Total Protein Fluid Total Protein Vancomycin Trough Rheumatoid Factor Complement C4 Miscellaneous Test Crossmatch 12/15/16 12/16/16 12/16/16 23:34 05:25 11:24 WBC RBC Hgb Hct MCV MCH MCHC RDW Plt Count Lymph % (Auto) [place] % (Auto) Lymph # [place] # Baso # Seg Neutrophils % Seg Neuts % (Manual) Lymphocytes % (Manual) Monocytes % (Manual) Eosinophils % (Manual) Basophils % (Manual) Nucleated RBC % Seg Neutrophils # Seg Neutrophils # Man Lymphocytes # (Manual) Monocytes # (Manual) Eosinophils # (Manual) Basophils # (Manual) PT INR Fibrinogen dRVVT Confirm Interp Factor V Activity POC ABG pH POC ABG pCO2 POC ABG pO2 ABG pO2 ABG HCO3 ABG Base Excess ABG Hemoglobin Oxyhemoglobin Sodium Potassium Chloride Carbon Dioxide BUN Creatinine Glucose POC Glucose 127 H 139 H 165 H Lactic Acid Calcium Ionized Calcium Phosphorus Magnesium Direct Bilirubin AST ALT Alkaline Phosphatase Lactate Dehydrogenase Troponin T C-Reactive Protein Total Protein Albumin Prealbumin Triglycerides Cholesterol LDL Cholesterol Direct HDL Cholesterol 25-OH Vitamin D Total PTH Intact Urine pH Urine WBC (Auto) Urine Creatinine Urine Total Protein Fluid Total Protein Vancomycin Trough Rheumatoid Factor Complement C4 Miscellaneous Test Crossmatch 12/16/16 12/16/16 12/16/16 15:30 16:25 17:31 WBC 17.8 H RBC 2.38 L Hgb 6.4 L Hct 20.3 L MCV MCH 27 L MCHC RDW 17.4 H Plt Count Lymph % (Auto) [place] % (Auto) Lymph # [place] # Baso # Seg Neutrophils % Seg Neuts % (Manual) Lymphocytes % (Manual) Monocytes % (Manual) 10.0 H Eosinophils % (Manual) Basophils % (Manual) Nucleated RBC % Seg Neutrophils # Seg Neutrophils # Man 8.5 H Lymphocytes # (Manual) Monocytes # (Manual) 1.8 H Eosinophils # (Manual) Basophils # (Manual) PT INR Fibrinogen dRVVT Confirm Interp Factor V Activity POC ABG pH POC ABG pCO2 POC ABG pO2 ABG pO2 ABG HCO3 ABG Base Excess ABG Hemoglobin Oxyhemoglobin Sodium Potassium Chloride Carbon Dioxide BUN Creatinine Glucose POC Glucose 176 H Lactic Acid Calcium Ionized Calcium Phosphorus Magnesium Direct Bilirubin AST ALT Alkaline Phosphatase Lactate Dehydrogenase Troponin T C-Reactive Protein Total Protein Albumin Prealbumin Triglycerides Cholesterol LDL Cholesterol Direct HDL Cholesterol 25-OH Vitamin D Total PTH Intact Urine pH Urine WBC (Auto) Urine Creatinine Urine Total Protein Fluid Total Protein Vancomycin Trough Rheumatoid Factor Complement C4 Miscellaneous Test Crossmatch See Detail 12/17/16 12/17/16 12/17/16 00:14 04:00 05:00 WBC 20.0 H RBC 2.99 L Hgb 8.5 L Hct 25.7 L MCV MCH MCHC RDW 17.2 H Plt Count Lymph % (Auto) [place] % (Auto) Lymph # [place] # Baso # Seg Neutrophils % Seg Neuts % (Manual) Lymphocytes % (Manual) Monocytes % (Manual) Eosinophils % (Manual) Basophils % (Manual) Nucleated RBC % Seg Neutrophils # Seg Neutrophils # Man Lymphocytes # (Manual) Monocytes # (Manual) Eosinophils # (Manual) Basophils # (Manual) PT INR Fibrinogen dRVVT Confirm Interp Factor V Activity POC ABG pH POC ABG pCO2 POC ABG pO2 ABG pO2 ABG HCO3 ABG Base Excess ABG Hemoglobin Oxyhemoglobin Sodium Potassium Chloride 97.7 L Carbon Dioxide BUN 73 H Creatinine 1.7 H Glucose 136 H POC Glucose 148 H Lactic Acid Calcium Ionized Calcium Phosphorus 2.20 L Magnesium 2.70 H Direct Bilirubin AST ALT Alkaline Phosphatase Lactate Dehydrogenase Troponin T C-Reactive Protein Total Protein Albumin Prealbumin Triglycerides Cholesterol LDL Cholesterol Direct HDL Cholesterol 25-OH Vitamin D Total PTH Intact Urine pH Urine WBC (Auto) Urine Creatinine Urine Total Protein Fluid Total Protein Vancomycin Trough Rheumatoid Factor Complement C4 Miscellaneous Test Crossmatch 12/17/16 12/17/16 12/17/16 05:39 12:50 16:32 WBC RBC Hgb Hct MCV MCH MCHC RDW Plt Count Lymph % (Auto) [place] % (Auto) Lymph # [place] # Baso # Seg Neutrophils % Seg Neuts % (Manual) Lymphocytes % (Manual) Monocytes % (Manual) Eosinophils % (Manual) Basophils % (Manual) Nucleated RBC % Seg Neutrophils # Seg Neutrophils # Man Lymphocytes # (Manual) Monocytes # (Manual) Eosinophils # (Manual) Basophils # (Manual) PT INR Fibrinogen dRVVT Confirm Interp Factor V Activity POC ABG pH POC ABG pCO2 POC ABG pO2 ABG pO2 ABG HCO3 ABG Base Excess ABG Hemoglobin Oxyhemoglobin Sodium Potassium Chloride Carbon Dioxide BUN Creatinine Glucose POC Glucose 162 H 146 H 169 H Lactic Acid Calcium Ionized Calcium Phosphorus Magnesium Direct Bilirubin AST ALT Alkaline Phosphatase Lactate Dehydrogenase Troponin T C-Reactive Protein Total Protein Albumin Prealbumin Triglycerides Cholesterol LDL Cholesterol Direct HDL Cholesterol 25-OH Vitamin D Total PTH Intact Urine pH Urine WBC (Auto) Urine Creatinine Urine Total Protein Fluid Total Protein Vancomycin Trough Rheumatoid Factor Complement C4 Miscellaneous Test Crossmatch 12/17/16 12/18/16 12/18/16 23:57 05:00 05:32 WBC RBC Hgb Hct MCV MCH MCHC RDW Plt Count Lymph % (Auto) [place] % (Auto) Lymph # [place] # Baso # Seg Neutrophils % Seg Neuts % (Manual) Lymphocytes % (Manual) Monocytes % (Manual) Eosinophils % (Manual) Basophils % (Manual) Nucleated RBC % Seg Neutrophils # Seg Neutrophils # Man Lymphocytes # (Manual) Monocytes # (Manual) Eosinophils # (Manual) Basophils # (Manual) PT INR Fibrinogen dRVVT Confirm Interp Factor V Activity POC ABG pH POC ABG pCO2 POC ABG pO2 ABG pO2 ABG HCO3 ABG Base Excess ABG Hemoglobin Oxyhemoglobin Sodium Potassium Chloride 97.0 L Carbon Dioxide BUN 63 H Creatinine 1.4 H Glucose 174 H POC Glucose 145 H 201 H Lactic Acid Calcium Ionized Calcium Phosphorus 1.70 L D Magnesium Direct Bilirubin AST ALT Alkaline Phosphatase 257 H Lactate Dehydrogenase Troponin T C-Reactive Protein Total Protein 5.9 L Albumin 1.8 L Prealbumin Triglycerides Cholesterol LDL Cholesterol Direct HDL Cholesterol 25-OH Vitamin D Total PTH Intact Urine pH Urine WBC (Auto) Urine Creatinine Urine Total Protein Fluid Total Protein Vancomycin Trough Rheumatoid Factor Complement C4 Miscellaneous Test Crossmatch 12/18/16 12/18/16 12/18/16 11:43 16:52 23:52 WBC RBC Hgb Hct MCV MCH MCHC RDW Plt Count Lymph % (Auto) [place] % (Auto) Lymph # [place] # Baso # Seg Neutrophils % Seg Neuts % (Manual) Lymphocytes % (Manual) Monocytes % (Manual) Eosinophils % (Manual) Basophils % (Manual) Nucleated RBC % Seg Neutrophils # Seg Neutrophils # Man Lymphocytes # (Manual) Monocytes # (Manual) Eosinophils # (Manual) Basophils # (Manual) PT INR Fibrinogen dRVVT Confirm Interp Factor V Activity POC ABG pH POC ABG pCO2 POC ABG pO2 ABG pO2 ABG HCO3 ABG Base Excess ABG Hemoglobin Oxyhemoglobin Sodium Potassium Chloride Carbon Dioxide BUN Creatinine Glucose POC Glucose 177 H 110 H 162 H Lactic Acid Calcium Ionized Calcium Phosphorus Magnesium Direct Bilirubin AST ALT Alkaline Phosphatase Lactate Dehydrogenase Troponin T C-Reactive Protein Total Protein Albumin Prealbumin Triglycerides Cholesterol LDL Cholesterol Direct HDL Cholesterol 25-OH Vitamin D Total PTH Intact Urine pH Urine WBC (Auto) Urine Creatinine Urine Total Protein Fluid Total Protein Vancomycin Trough Rheumatoid Factor Complement C4 Miscellaneous Test Crossmatch 12/19/16 12/19/16 12/19/16 05:02 05:24 09:30 WBC 20.1 H RBC 2.73 L Hgb 7.6 L Hct 23.6 L MCV MCH MCHC RDW 17.6 H Plt Count Lymph % (Auto) [place] % (Auto) Lymph # [place] # Baso # Seg Neutrophils % Seg Neuts % (Manual) Lymphocytes % (Manual) 13.0 L Monocytes % (Manual) Eosinophils % (Manual) Basophils % (Manual) Nucleated RBC % 1.0 H Seg Neutrophils # Seg Neutrophils # Man 12.9 H Lymphocytes # (Manual) Monocytes # (Manual) 1.4 H Eosinophils # (Manual) Basophils # (Manual) 0.2 H PT INR Fibrinogen dRVVT Confirm Interp Factor V Activity POC ABG pH POC ABG pCO2 POC ABG pO2 ABG pO2 ABG HCO3 ABG Base Excess ABG Hemoglobin Oxyhemoglobin Sodium Potassium Chloride 97.8 L Carbon Dioxide BUN 84 H Creatinine 1.6 H Glucose 133 H POC Glucose 134 H Lactic Acid Calcium Ionized Calcium Phosphorus Magnesium Direct Bilirubin AST ALT Alkaline Phosphatase Lactate Dehydrogenase Troponin T C-Reactive Protein Total Protein Albumin Prealbumin Triglycerides Cholesterol LDL Cholesterol Direct HDL Cholesterol 25-OH Vitamin D Total PTH Intact Urine pH Urine WBC (Auto) Urine Creatinine Urine Total Protein Fluid Total Protein Vancomycin Trough Rheumatoid Factor Complement C4 Miscellaneous Test Crossmatch 12/19/16 12/19/16 12/19/16 09:36 11:12 18:29 WBC RBC Hgb Hct MCV MCH MCHC RDW Plt Count Lymph % (Auto) [place] % (Auto) Lymph # [place] # Baso # Seg Neutrophils % Seg Neuts % (Manual) Lymphocytes % (Manual) Monocytes % (Manual) Eosinophils % (Manual) Basophils % (Manual) Nucleated RBC % Seg Neutrophils # Seg Neutrophils # Man Lymphocytes # (Manual) Monocytes # (Manual) Eosinophils # (Manual) Basophils # (Manual) PT INR Fibrinogen dRVVT Confirm Interp Factor V Activity POC ABG pH 7.503 H POC ABG pCO2 30.1 L POC ABG pO2 ABG pO2 ABG HCO3 ABG Base Excess ABG Hemoglobin Oxyhemoglobin Sodium Potassium Chloride Carbon Dioxide BUN Creatinine Glucose POC Glucose 138 H 156 H Lactic Acid Calcium Ionized Calcium Phosphorus Magnesium Direct Bilirubin AST ALT Alkaline Phosphatase Lactate Dehydrogenase Troponin T C-Reactive Protein Total Protein Albumin Prealbumin Triglycerides Cholesterol LDL Cholesterol Direct HDL Cholesterol 25-OH Vitamin D Total PTH Intact Urine pH Urine WBC (Auto) Urine Creatinine Urine Total Protein Fluid Total Protein Vancomycin Trough Rheumatoid Factor Complement C4 Miscellaneous Test Crossmatch 12/20/16 12/20/16 12/20/16 00:03 06:17 07:07 WBC RBC Hgb Hct MCV MCH MCHC RDW Plt Count Lymph % (Auto) [place] % (Auto) Lymph # [place] # Baso # Seg Neutrophils % Seg Neuts % (Manual) Lymphocytes % (Manual) Monocytes % (Manual) Eosinophils % (Manual) Basophils % (Manual) Nucleated RBC % Seg Neutrophils # Seg Neutrophils # Man Lymphocytes # (Manual) Monocytes # (Manual) Eosinophils # (Manual) Basophils # (Manual) PT INR Fibrinogen dRVVT Confirm Interp Factor V Activity POC ABG pH POC ABG pCO2 POC ABG pO2 ABG pO2 ABG HCO3 ABG Base Excess ABG Hemoglobin Oxyhemoglobin Sodium Potassium Chloride 97.1 L Carbon Dioxide 20 L BUN 97 H Creatinine 1.8 H Glucose 153 H POC Glucose 152 H 175 H Lactic Acid Calcium Ionized Calcium Phosphorus Magnesium Direct Bilirubin AST ALT Alkaline Phosphatase Lactate Dehydrogenase Troponin T C-Reactive Protein Total Protein Albumin Prealbumin Triglycerides Cholesterol LDL Cholesterol Direct HDL Cholesterol 25-OH Vitamin D Total PTH Intact Urine pH Urine WBC (Auto) Urine Creatinine Urine Total Protein Fluid Total Protein Vancomycin Trough Rheumatoid Factor Complement C4 Miscellaneous Test Crossmatch 12/20/16 12/20/16 12/20/16 12:00 17:42 23:53 WBC RBC Hgb Hct MCV MCH MCHC RDW Plt Count Lymph % (Auto) [place] % (Auto) Lymph # [place] # Baso # Seg Neutrophils % Seg Neuts % (Manual) Lymphocytes % (Manual) Monocytes % (Manual) Eosinophils % (Manual) Basophils % (Manual) Nucleated RBC % Seg Neutrophils # Seg Neutrophils # Man Lymphocytes # (Manual) Monocytes # (Manual) Eosinophils # (Manual) Basophils # (Manual) PT INR Fibrinogen dRVVT Confirm Interp Factor V Activity POC ABG pH POC ABG pCO2 POC ABG pO2 ABG pO2 ABG HCO3 ABG Base Excess ABG Hemoglobin Oxyhemoglobin Sodium Potassium Chloride Carbon Dioxide BUN Creatinine Glucose POC Glucose 141 H 156 H 132 H Lactic Acid Calcium Ionized Calcium Phosphorus Magnesium Direct Bilirubin AST ALT Alkaline Phosphatase Lactate Dehydrogenase Troponin T C-Reactive Protein Total Protein Albumin Prealbumin Triglycerides Cholesterol LDL Cholesterol Direct HDL Cholesterol 25-OH Vitamin D Total PTH Intact Urine pH Urine WBC (Auto) Urine Creatinine Urine Total Protein Fluid Total Protein Vancomycin Trough Rheumatoid Factor Complement C4 Miscellaneous Test Crossmatch 12/21/16 12/21/16 12/21/16 05:49 08:50 12:19 WBC RBC Hgb Hct MCV MCH MCHC RDW Plt Count Lymph % (Auto) [place] % (Auto) Lymph # [place] # Baso # Seg Neutrophils % Seg Neuts % (Manual) Lymphocytes % (Manual) Monocytes % (Manual) Eosinophils % (Manual) Basophils % (Manual) Nucleated RBC % Seg Neutrophils # Seg Neutrophils # Man Lymphocytes # (Manual) Monocytes # (Manual) Eosinophils # (Manual) Basophils # (Manual) PT INR Fibrinogen dRVVT Confirm Interp Factor V Activity POC ABG pH POC ABG pCO2 POC ABG pO2 ABG pO2 ABG HCO3 ABG Base Excess ABG Hemoglobin Oxyhemoglobin Sodium Potassium 5.2 H D Chloride Carbon Dioxide BUN 63 H Creatinine Glucose 122 H POC Glucose 132 H 136 H Lactic Acid Calcium 8.3 L Ionized Calcium Phosphorus Magnesium Direct Bilirubin AST ALT Alkaline Phosphatase Lactate Dehydrogenase Troponin T C-Reactive Protein Total Protein Albumin Prealbumin Triglycerides Cholesterol LDL Cholesterol Direct HDL Cholesterol 25-OH Vitamin D Total PTH Intact Urine pH Urine WBC (Auto) Urine Creatinine Urine Total Protein Fluid Total Protein Vancomycin Trough Rheumatoid Factor Complement C4 Miscellaneous Test Crossmatch 12/21/16 12/21/16 12/22/16 17:22 23:58 05:49 WBC RBC Hgb Hct MCV MCH MCHC RDW Plt Count Lymph % (Auto) [place] % (Auto) Lymph # [place] # Baso # Seg Neutrophils % Seg Neuts % (Manual) Lymphocytes % (Manual) Monocytes % (Manual) Eosinophils % (Manual) Basophils % (Manual) Nucleated RBC % Seg Neutrophils # Seg Neutrophils # Man Lymphocytes # (Manual) Monocytes # (Manual) Eosinophils # (Manual) Basophils # (Manual) PT INR Fibrinogen dRVVT Confirm Interp Factor V Activity POC ABG pH POC ABG pCO2 POC ABG pO2 ABG pO2 ABG HCO3 ABG Base Excess ABG Hemoglobin Oxyhemoglobin Sodium Potassium Chloride Carbon Dioxide BUN Creatinine Glucose POC Glucose 135 H 149 H 140 H Lactic Acid Calcium Ionized Calcium Phosphorus Magnesium Direct Bilirubin AST ALT Alkaline Phosphatase Lactate Dehydrogenase Troponin T C-Reactive Protein Total Protein Albumin Prealbumin Triglycerides Cholesterol LDL Cholesterol Direct HDL Cholesterol 25-OH Vitamin D Total PTH Intact Urine pH Urine WBC (Auto) Urine Creatinine Urine Total Protein Fluid Total Protein Vancomycin Trough Rheumatoid Factor Complement C4 Miscellaneous Test Crossmatch 12/22/16 12/22/16 12/22/16 06:10 11:17 17:31 WBC RBC Hgb Hct MCV MCH MCHC RDW Plt Count Lymph % (Auto) [place] % (Auto) Lymph # [place] # Baso # Seg Neutrophils % Seg Neuts % (Manual) Lymphocytes % (Manual) Monocytes % (Manual) Eosinophils % (Manual) Basophils % (Manual) Nucleated RBC % Seg Neutrophils # Seg Neutrophils # Man Lymphocytes # (Manual) Monocytes # (Manual) Eosinophils # (Manual) Basophils # (Manual) PT INR Fibrinogen dRVVT Confirm Interp Factor V Activity POC ABG pH POC ABG pCO2 POC ABG pO2 ABG pO2 ABG HCO3 ABG Base Excess ABG Hemoglobin Oxyhemoglobin Sodium Potassium Chloride Carbon Dioxide BUN 76 H Creatinine 1.5 H Glucose 241 H POC Glucose 193 H 148 H Lactic Acid Calcium Ionized Calcium Phosphorus Magnesium Direct Bilirubin AST ALT Alkaline Phosphatase Lactate Dehydrogenase Troponin T C-Reactive Protein Total Protein Albumin Prealbumin Triglycerides Cholesterol LDL Cholesterol Direct HDL Cholesterol 25-OH Vitamin D Total PTH Intact Urine pH Urine WBC (Auto) Urine Creatinine Urine Total Protein Fluid Total Protein Vancomycin Trough Rheumatoid Factor Complement C4 Miscellaneous Test Crossmatch 12/22/16 12/23/16 12/23/16 23:58 05:00 05:26 WBC RBC Hgb Hct MCV MCH MCHC RDW Plt Count Lymph % (Auto) [place] % (Auto) Lymph # [place] # Baso # Seg Neutrophils % Seg Neuts % (Manual) Lymphocytes % (Manual) Monocytes % (Manual) Eosinophils % (Manual) Basophils % (Manual) Nucleated RBC % Seg Neutrophils # Seg Neutrophils # Man Lymphocytes # (Manual) Monocytes # (Manual) Eosinophils # (Manual) Basophils # (Manual) PT INR Fibrinogen dRVVT Confirm Interp Factor V Activity POC ABG pH POC ABG pCO2 POC ABG pO2 ABG pO2 ABG HCO3 ABG Base Excess ABG Hemoglobin Oxyhemoglobin Sodium Potassium Chloride Carbon Dioxide BUN 49 H Creatinine Glucose 143 H POC Glucose 165 H 154 H Lactic Acid Calcium 8.2 L Ionized Calcium Phosphorus Magnesium 1.60 L Direct Bilirubin AST ALT Alkaline Phosphatase Lactate Dehydrogenase Troponin T C-Reactive Protein Total Protein Albumin Prealbumin Triglycerides Cholesterol LDL Cholesterol Direct HDL Cholesterol 25-OH Vitamin D Total PTH Intact Urine pH Urine WBC (Auto) Urine Creatinine Urine Total Protein Fluid Total Protein Vancomycin Trough Rheumatoid Factor Complement C4 Miscellaneous Test Crossmatch 12/23/16 12/23/16 12/24/16 12:35 17:01 00:01 WBC RBC Hgb Hct MCV MCH MCHC RDW Plt Count Lymph % (Auto) [place] % (Auto) Lymph # [place] # Baso # Seg Neutrophils % Seg Neuts % (Manual) Lymphocytes % (Manual) Monocytes % (Manual) Eosinophils % (Manual) Basophils % (Manual) Nucleated RBC % Seg Neutrophils # Seg Neutrophils # Man Lymphocytes # (Manual) Monocytes # (Manual) Eosinophils # (Manual) Basophils # (Manual) PT INR Fibrinogen dRVVT Confirm Interp Factor V Activity POC ABG pH POC ABG pCO2 POC ABG pO2 ABG pO2 ABG HCO3 ABG Base Excess ABG Hemoglobin Oxyhemoglobin Sodium Potassium Chloride Carbon Dioxide BUN Creatinine Glucose POC Glucose 164 H 149 H 135 H Lactic Acid Calcium Ionized Calcium Phosphorus Magnesium Direct Bilirubin AST ALT Alkaline Phosphatase Lactate Dehydrogenase Troponin T C-Reactive Protein Total Protein Albumin Prealbumin Triglycerides Cholesterol LDL Cholesterol Direct HDL Cholesterol 25-OH Vitamin D Total PTH Intact Urine pH Urine WBC (Auto) Urine Creatinine Urine Total Protein Fluid Total Protein Vancomycin Trough Rheumatoid Factor Complement C4 Miscellaneous Test Crossmatch 12/24/16 12/24/16 12/24/16 05:41 07:01 11:38 WBC RBC Hgb Hct MCV MCH MCHC RDW Plt Count Lymph % (Auto) [place] % (Auto) Lymph # [place] # Baso # Seg Neutrophils % Seg Neuts % (Manual) Lymphocytes % (Manual) Monocytes % (Manual) Eosinophils % (Manual) Basophils % (Manual) Nucleated RBC % Seg Neutrophils # Seg Neutrophils # Man Lymphocytes # (Manual) Monocytes # (Manual) Eosinophils # (Manual) Basophils # (Manual) PT INR Fibrinogen dRVVT Confirm Interp Factor V Activity POC ABG pH POC ABG pCO2 POC ABG pO2 ABG pO2 ABG HCO3 ABG Base Excess ABG Hemoglobin Oxyhemoglobin Sodium Potassium Chloride Carbon Dioxide BUN 72 H Creatinine 1.3 H Glucose 130 H POC Glucose 132 H 156 H Lactic Acid Calcium 8.2 L Ionized Calcium Phosphorus Magnesium Direct Bilirubin AST ALT Alkaline Phosphatase Lactate Dehydrogenase Troponin T C-Reactive Protein Total Protein Albumin Prealbumin Triglycerides Cholesterol LDL Cholesterol Direct HDL Cholesterol 25-OH Vitamin D Total PTH Intact Urine pH Urine WBC (Auto) Urine Creatinine Urine Total Protein Fluid Total Protein Vancomycin Trough Rheumatoid Factor Complement C4 Miscellaneous Test Crossmatch 12/24/16 12/25/16 12/25/16 17:53 00:23 05:45 WBC RBC Hgb Hct MCV MCH MCHC RDW Plt Count Lymph % (Auto) [place] % (Auto) Lymph # [place] # Baso # Seg Neutrophils % Seg Neuts % (Manual) Lymphocytes % (Manual) Monocytes % (Manual) Eosinophils % (Manual) Basophils % (Manual) Nucleated RBC % Seg Neutrophils # Seg Neutrophils # Man Lymphocytes # (Manual) Monocytes # (Manual) Eosinophils # (Manual) Basophils # (Manual) PT INR Fibrinogen dRVVT Confirm Interp Factor V Activity POC ABG pH POC ABG pCO2 POC ABG pO2 ABG pO2 ABG HCO3 ABG Base Excess ABG Hemoglobin Oxyhemoglobin Sodium 146 H Potassium Chloride Carbon Dioxide BUN 51 H Creatinine Glucose 109 H POC Glucose 169 H 117 H Lactic Acid Calcium Ionized Calcium Phosphorus Magnesium Direct Bilirubin AST ALT Alkaline Phosphatase Lactate Dehydrogenase Troponin T C-Reactive Protein Total Protein Albumin Prealbumin Triglycerides Cholesterol LDL Cholesterol Direct HDL Cholesterol 25-OH Vitamin D Total PTH Intact Urine pH Urine WBC (Auto) Urine Creatinine Urine Total Protein Fluid Total Protein Vancomycin Trough Rheumatoid Factor Complement C4 Miscellaneous Test Crossmatch 12/25/16 12/25/16 12/25/16 06:43 11:29 17:14 WBC RBC Hgb Hct MCV MCH MCHC RDW Plt Count Lymph % (Auto) [place] % (Auto) Lymph # [place] # Baso # Seg Neutrophils % Seg Neuts % (Manual) Lymphocytes % (Manual) Monocytes % (Manual) Eosinophils % (Manual) Basophils % (Manual) Nucleated RBC % Seg Neutrophils # Seg Neutrophils # Man Lymphocytes # (Manual) Monocytes # (Manual) Eosinophils # (Manual) Basophils # (Manual) PT INR Fibrinogen dRVVT Confirm Interp Factor V Activity POC ABG pH POC ABG pCO2 POC ABG pO2 ABG pO2 ABG HCO3 ABG Base Excess ABG Hemoglobin Oxyhemoglobin Sodium Potassium Chloride Carbon Dioxide BUN Creatinine Glucose POC Glucose 117 H 128 H 120 H Lactic Acid Calcium Ionized Calcium Phosphorus Magnesium Direct Bilirubin AST ALT Alkaline Phosphatase Lactate Dehydrogenase Troponin T C-Reactive Protein Total Protein Albumin Prealbumin Triglycerides Cholesterol LDL Cholesterol Direct HDL Cholesterol 25-OH Vitamin D Total PTH Intact Urine pH Urine WBC (Auto) Urine Creatinine Urine Total Protein Fluid Total Protein Vancomycin Trough Rheumatoid Factor Complement C4 Miscellaneous Test Crossmatch 12/25/16 12/26/16 12/26/16 23:54 05:40 05:50 WBC 16.2 H RBC 2.32 L Hgb 6.2 L Hct 20.1 L MCV MCH 27 L MCHC RDW 18.6 H Plt Count Lymph % (Auto) [place] % (Auto) Lymph # [place] # Baso # Seg Neutrophils % Seg Neuts % (Manual) Lymphocytes % (Manual) Monocytes % (Manual) Eosinophils % (Manual) Basophils % (Manual) Nucleated RBC % Seg Neutrophils # Seg Neutrophils # Man Lymphocytes # (Manual) Monocytes # (Manual) Eosinophils # (Manual) Basophils # (Manual) PT INR Fibrinogen dRVVT Confirm Interp Factor V Activity POC ABG pH POC ABG pCO2 POC ABG pO2 ABG pO2 ABG HCO3 ABG Base Excess ABG Hemoglobin Oxyhemoglobin Sodium Potassium Chloride Carbon Dioxide BUN Creatinine Glucose POC Glucose 126 H 132 H Lactic Acid Calcium Ionized Calcium Phosphorus Magnesium Direct Bilirubin AST ALT Alkaline Phosphatase Lactate Dehydrogenase Troponin T C-Reactive Protein Total Protein Albumin Prealbumin Triglycerides Cholesterol LDL Cholesterol Direct HDL Cholesterol 25-OH Vitamin D Total PTH Intact Urine pH Urine WBC (Auto) Urine Creatinine Urine Total Protein Fluid Total Protein Vancomycin Trough Rheumatoid Factor Complement C4 Miscellaneous Test Crossmatch 12/26/16 12/26/16 12/26/16 05:50 12:17 12:33 WBC RBC Hgb Hct MCV MCH MCHC RDW Plt Count Lymph % (Auto) [place] % (Auto) Lymph # [place] # Baso # Seg Neutrophils % Seg Neuts % (Manual) Lymphocytes % (Manual) Monocytes % (Manual) Eosinophils % (Manual) Basophils % (Manual) Nucleated RBC % Seg Neutrophils # Seg Neutrophils # Man Lymphocytes # (Manual) Monocytes # (Manual) Eosinophils # (Manual) Basophils # (Manual) PT INR Fibrinogen dRVVT Confirm Interp Factor V Activity POC ABG pH POC ABG pCO2 POC ABG pO2 ABG pO2 ABG HCO3 ABG Base Excess ABG Hemoglobin Oxyhemoglobin Sodium Potassium Chloride Carbon Dioxide BUN 73 H Creatinine 1.3 H Glucose 113 H POC Glucose 117 H Lactic Acid Calcium Ionized Calcium Phosphorus Magnesium Direct Bilirubin AST ALT Alkaline Phosphatase Lactate Dehydrogenase Troponin T C-Reactive Protein Total Protein Albumin Prealbumin Triglycerides Cholesterol LDL Cholesterol Direct HDL Cholesterol 25-OH Vitamin D Total PTH Intact Urine pH Urine WBC (Auto) Urine Creatinine Urine Total Protein Fluid Total Protein Vancomycin Trough Rheumatoid Factor Complement C4 Miscellaneous Test Crossmatch See Detail 12/26/16 12/26/16 12/27/16 20:00 23:21 05:00 WBC RBC Hgb 8.4 L Hct 26.3 L D MCV MCH MCHC RDW Plt Count Lymph % (Auto) [place] % (Auto) Lymph # [place] # Baso # Seg Neutrophils % Seg Neuts % (Manual) Lymphocytes % (Manual) Monocytes % (Manual) Eosinophils % (Manual) Basophils % (Manual) Nucleated RBC % Seg Neutrophils # Seg Neutrophils # Man Lymphocytes # (Manual) Monocytes # (Manual) Eosinophils # (Manual) Basophils # (Manual) PT INR Fibrinogen dRVVT Confirm Interp Factor V Activity POC ABG pH POC ABG pCO2 POC ABG pO2 ABG pO2 ABG HCO3 ABG Base Excess ABG Hemoglobin Oxyhemoglobin Sodium Potassium Chloride Carbon Dioxide BUN 85 H Creatinine 1.6 H Glucose 118 H POC Glucose 124 H Lactic Acid Calcium Ionized Calcium Phosphorus 4.80 H Magnesium Direct Bilirubin AST ALT Alkaline Phosphatase Lactate Dehydrogenase Troponin T C-Reactive Protein Total Protein Albumin Prealbumin Triglycerides Cholesterol LDL Cholesterol Direct HDL Cholesterol 25-OH Vitamin D Total PTH Intact Urine pH Urine WBC (Auto) Urine Creatinine Urine Total Protein Fluid Total Protein Vancomycin Trough Rheumatoid Factor Complement C4 Miscellaneous Test Crossmatch 12/27/16 12/27/16 12/27/16 05:00 05:35 12:24 WBC RBC Hgb 7.6 L Hct 22.8 L MCV MCH MCHC RDW Plt Count Lymph % (Auto) [place] % (Auto) Lymph # [place] # Baso # Seg Neutrophils % Seg Neuts % (Manual) Lymphocytes % (Manual) Monocytes % (Manual) Eosinophils % (Manual) Basophils % (Manual) Nucleated RBC % Seg Neutrophils # Seg Neutrophils # Man Lymphocytes # (Manual) Monocytes # (Manual) Eosinophils # (Manual) Basophils # (Manual) PT INR Fibrinogen dRVVT Confirm Interp Factor V Activity POC ABG pH POC ABG pCO2 POC ABG pO2 ABG pO2 ABG HCO3 ABG Base Excess ABG Hemoglobin Oxyhemoglobin Sodium Potassium Chloride Carbon Dioxide BUN Creatinine Glucose POC Glucose 115 H 131 H Lactic Acid Calcium Ionized Calcium Phosphorus Magnesium Direct Bilirubin AST ALT Alkaline Phosphatase Lactate Dehydrogenase Troponin T C-Reactive Protein Total Protein Albumin Prealbumin Triglycerides Cholesterol LDL Cholesterol Direct HDL Cholesterol 25-OH Vitamin D Total PTH Intact Urine pH Urine WBC (Auto) Urine Creatinine Urine Total Protein Fluid Total Protein Vancomycin Trough Rheumatoid Factor Complement C4 Miscellaneous Test Crossmatch 12/27/16 12/28/16 12/28/16 17:16 00:18 04:00 WBC RBC Hgb Hct MCV MCH MCHC RDW Plt Count Lymph % (Auto) [place] % (Auto) Lymph # [place] # Baso # Seg Neutrophils % Seg Neuts % (Manual) Lymphocytes % (Manual) Monocytes % (Manual) Eosinophils % (Manual) Basophils % (Manual) Nucleated RBC % Seg Neutrophils # Seg Neutrophils # Man Lymphocytes # (Manual) Monocytes # (Manual) Eosinophils # (Manual) Basophils # (Manual) PT INR Fibrinogen dRVVT Confirm Interp Factor V Activity POC ABG pH POC ABG pCO2 POC ABG pO2 ABG pO2 ABG HCO3 ABG Base Excess ABG Hemoglobin Oxyhemoglobin Sodium Potassium 3.5 L Chloride Carbon Dioxide BUN 57 H Creatinine Glucose 118 H POC Glucose 136 H 120 H Lactic Acid Calcium 8.3 L Ionized Calcium Phosphorus Magnesium Direct Bilirubin AST ALT Alkaline Phosphatase Lactate Dehydrogenase Troponin T C-Reactive Protein Total Protein Albumin Prealbumin Triglycerides Cholesterol LDL Cholesterol Direct HDL Cholesterol 25-OH Vitamin D Total PTH Intact Urine pH Urine WBC (Auto) Urine Creatinine Urine Total Protein Fluid Total Protein Vancomycin Trough Rheumatoid Factor Complement C4 Miscellaneous Test Crossmatch 12/28/16 12/28/16 12/28/16 04:00 05:11 08:30 WBC 17.0 H RBC 2.58 L Hgb 7.1 L Hct 22.0 L MCV MCH MCHC RDW 17.6 H Plt Count Lymph % (Auto) 12.2 L [place] % (Auto) Lymph # [place] # 1.1 H Baso # Seg Neutrophils % 80.5 H Seg Neuts % (Manual) Lymphocytes % (Manual) Monocytes % (Manual) Eosinophils % (Manual) Basophils % (Manual) Nucleated RBC % Seg Neutrophils # 13.7 H Seg Neutrophils # Man Lymphocytes # (Manual) Monocytes # (Manual) Eosinophils # (Manual) Basophils # (Manual) PT 16.1 H INR 1.23 H Fibrinogen dRVVT Confirm Interp Factor V Activity POC ABG pH POC ABG pCO2 POC ABG pO2 ABG pO2 ABG HCO3 ABG Base Excess ABG Hemoglobin Oxyhemoglobin Sodium Potassium Chloride Carbon Dioxide BUN Creatinine Glucose POC Glucose 122 H Lactic Acid Calcium Ionized Calcium Phosphorus Magnesium Direct Bilirubin AST ALT Alkaline Phosphatase Lactate Dehydrogenase Troponin T C-Reactive Protein Total Protein Albumin Prealbumin Triglycerides Cholesterol LDL Cholesterol Direct HDL Cholesterol 25-OH Vitamin D Total PTH Intact Urine pH Urine WBC (Auto) Urine Creatinine Urine Total Protein Fluid Total Protein Vancomycin Trough Rheumatoid Factor Complement C4 Miscellaneous Test Crossmatch 12/28/16 12/28/16 12/28/16 12:27 16:32 23:46 WBC RBC Hgb Hct MCV MCH MCHC RDW Plt Count Lymph % (Auto) [place] % (Auto) Lymph # [place] # Baso # Seg Neutrophils % Seg Neuts % (Manual) Lymphocytes % (Manual) Monocytes % (Manual) Eosinophils % (Manual) Basophils % (Manual) Nucleated RBC % Seg Neutrophils # Seg Neutrophils # Man Lymphocytes # (Manual) Monocytes # (Manual) Eosinophils # (Manual) Basophils # (Manual) PT INR Fibrinogen dRVVT Confirm Interp Factor V Activity POC ABG pH POC ABG pCO2 POC ABG pO2 ABG pO2 ABG HCO3 ABG Base Excess ABG Hemoglobin Oxyhemoglobin Sodium Potassium Chloride Carbon Dioxide BUN Creatinine Glucose POC Glucose 127 H 117 H 108 H Lactic Acid Calcium Ionized Calcium Phosphorus Magnesium Direct Bilirubin AST ALT Alkaline Phosphatase Lactate Dehydrogenase Troponin T C-Reactive Protein Total Protein Albumin Prealbumin Triglycerides Cholesterol LDL Cholesterol Direct HDL Cholesterol 25-OH Vitamin D Total PTH Intact Urine pH Urine WBC (Auto) Urine Creatinine Urine Total Protein Fluid Total Protein Vancomycin Trough Rheumatoid Factor Complement C4 Miscellaneous Test Crossmatch 12/29/16 12/29/16 12/29/16 05:15 05:15 05:32 WBC RBC Hgb Hct MCV MCH MCHC RDW Plt Count Lymph % (Auto) [place] % (Auto) Lymph # [place] # Baso # Seg Neutrophils % Seg Neuts % (Manual) Lymphocytes % (Manual) Monocytes % (Manual) Eosinophils % (Manual) Basophils % (Manual) Nucleated RBC % Seg Neutrophils # Seg Neutrophils # Man Lymphocytes # (Manual) Monocytes # (Manual) Eosinophils # (Manual) Basophils # (Manual) PT INR Fibrinogen dRVVT Confirm Interp Factor V Activity POC ABG pH POC ABG pCO2 POC ABG pO2 ABG pO2 ABG HCO3 ABG Base Excess ABG Hemoglobin Oxyhemoglobin Sodium Potassium Chloride Carbon Dioxide BUN 74 H Creatinine 1.6 H Glucose 111 H POC Glucose 123 H Lactic Acid Calcium Ionized Calcium Phosphorus Magnesium Direct Bilirubin AST ALT Alkaline Phosphatase Lactate Dehydrogenase Troponin T C-Reactive Protein Total Protein Albumin Prealbumin 0.110 L Triglycerides Cholesterol LDL Cholesterol Direct HDL Cholesterol 25-OH Vitamin D Total PTH Intact Urine pH Urine WBC (Auto) Urine Creatinine Urine Total Protein Fluid Total Protein Vancomycin Trough Rheumatoid Factor Complement C4 Miscellaneous Test Crossmatch 12/29/16 12/29/16 12/29/16 11:43 13:45 14:00 WBC 13.8 H RBC 2.26 L Hgb 6.3 L Hct 20.4 L MCV MCH MCHC RDW 18.3 H Plt Count Lymph % (Auto) [place] % (Auto) Lymph # [place] # 0.9 H Baso # Seg Neutrophils % 78.6 H Seg Neuts % (Manual) Lymphocytes % (Manual) Monocytes % (Manual) Eosinophils % (Manual) Basophils % (Manual) Nucleated RBC % Seg Neutrophils # 10.8 H Seg Neutrophils # Man Lymphocytes # (Manual) Monocytes # (Manual) Eosinophils # (Manual) Basophils # (Manual) PT INR Fibrinogen dRVVT Confirm Interp Factor V Activity POC ABG pH POC ABG pCO2 POC ABG pO2 ABG pO2 ABG HCO3 ABG Base Excess ABG Hemoglobin Oxyhemoglobin Sodium Potassium Chloride Carbon Dioxide BUN Creatinine Glucose POC Glucose 133 H Lactic Acid Calcium Ionized Calcium Phosphorus Magnesium Direct Bilirubin AST ALT Alkaline Phosphatase Lactate Dehydrogenase Troponin T C-Reactive Protein Total Protein Albumin Prealbumin Triglycerides Cholesterol LDL Cholesterol Direct HDL Cholesterol 25-OH Vitamin D Total PTH Intact Urine pH Urine WBC (Auto) Urine Creatinine Urine Total Protein Fluid Total Protein Vancomycin Trough Rheumatoid Factor Complement C4 Miscellaneous Test Crossmatch See Detail 12/29/16 12/29/16 12/29/16 17:03 23:15 23:22 WBC RBC Hgb 7.3 L Hct 22.3 L MCV MCH MCHC RDW Plt Count Lymph % (Auto) [place] % (Auto) Lymph # [place] # Baso # Seg Neutrophils % Seg Neuts % (Manual) Lymphocytes % (Manual) Monocytes % (Manual) Eosinophils % (Manual) Basophils % (Manual) Nucleated RBC % Seg Neutrophils # Seg Neutrophils # Man Lymphocytes # (Manual) Monocytes # (Manual) Eosinophils # (Manual) Basophils # (Manual) PT INR Fibrinogen dRVVT Confirm Interp Factor V Activity POC ABG pH POC ABG pCO2 POC ABG pO2 ABG pO2 ABG HCO3 ABG Base Excess ABG Hemoglobin Oxyhemoglobin Sodium Potassium Chloride Carbon Dioxide BUN Creatinine Glucose POC Glucose 139 H 120 H Lactic Acid Calcium Ionized Calcium Phosphorus Magnesium Direct Bilirubin AST ALT Alkaline Phosphatase Lactate Dehydrogenase Troponin T C-Reactive Protein Total Protein Albumin Prealbumin Triglycerides Cholesterol LDL Cholesterol Direct HDL Cholesterol 25-OH Vitamin D Total PTH Intact Urine pH Urine WBC (Auto) Urine Creatinine Urine Total Protein Fluid Total Protein Vancomycin Trough Rheumatoid Factor Complement C4 Miscellaneous Test Crossmatch 12/30/16 12/30/16 12/30/16 04:20 04:20 05:43 WBC 15.6 H RBC 2.81 L Hgb 8.0 L Hct 24.0 L MCV MCH MCHC RDW 16.9 H Plt Count Lymph % (Auto) [place] % (Auto) Lymph # [place] # 1.0 H Baso # Seg Neutrophils % 76.2 H Seg Neuts % (Manual) Lymphocytes % (Manual) Monocytes % (Manual) Eosinophils % (Manual) Basophils % (Manual) Nucleated RBC % Seg Neutrophils # 11.9 H Seg Neutrophils # Man Lymphocytes # (Manual) Monocytes # (Manual) Eosinophils # (Manual) Basophils # (Manual) PT INR Fibrinogen dRVVT Confirm Interp Factor V Activity POC ABG pH POC ABG pCO2 POC ABG pO2 ABG pO2 ABG HCO3 ABG Base Excess ABG Hemoglobin Oxyhemoglobin Sodium Potassium Chloride Carbon Dioxide BUN 87 H Creatinine 1.8 H Glucose 119 H POC Glucose 115 H Lactic Acid Calcium Ionized Calcium Phosphorus Magnesium Direct Bilirubin AST ALT Alkaline Phosphatase Lactate Dehydrogenase Troponin T C-Reactive Protein Total Protein Albumin Prealbumin Triglycerides Cholesterol LDL Cholesterol Direct HDL Cholesterol 25-OH Vitamin D Total PTH Intact Urine pH Urine WBC (Auto) Urine Creatinine Urine Total Protein Fluid Total Protein Vancomycin Trough Rheumatoid Factor Complement C4 Miscellaneous Test Crossmatch 12/30/16 12/30/16 12/31/16 17:27 23:21 04:00 WBC RBC Hgb Hct MCV MCH MCHC RDW Plt Count Lymph % (Auto) [place] % (Auto) Lymph # [place] # Baso # Seg Neutrophils % Seg Neuts % (Manual) Lymphocytes % (Manual) Monocytes % (Manual) Eosinophils % (Manual) Basophils % (Manual) Nucleated RBC % Seg Neutrophils # Seg Neutrophils # Man Lymphocytes # (Manual) Monocytes # (Manual) Eosinophils # (Manual) Basophils # (Manual) PT INR Fibrinogen dRVVT Confirm Interp Factor V Activity POC ABG pH POC ABG pCO2 POC ABG pO2 ABG pO2 ABG HCO3 ABG Base Excess ABG Hemoglobin Oxyhemoglobin Sodium Potassium Chloride Carbon Dioxide BUN 59 H Creatinine Glucose 298 H POC Glucose 144 H 125 H Lactic Acid Calcium Ionized Calcium Phosphorus Magnesium Direct Bilirubin AST ALT Alkaline Phosphatase Lactate Dehydrogenase Troponin T C-Reactive Protein Total Protein Albumin Prealbumin Triglycerides Cholesterol LDL Cholesterol Direct HDL Cholesterol 25-OH Vitamin D Total PTH Intact Urine pH Urine WBC (Auto) Urine Creatinine Urine Total Protein Fluid Total Protein Vancomycin Trough Rheumatoid Factor Complement C4 Miscellaneous Test Crossmatch 12/31/16 12/31/16 12/31/16 05:11 12:18 18:17 WBC RBC Hgb Hct MCV MCH MCHC RDW Plt Count Lymph % (Auto) [place] % (Auto) Lymph # [place] # Baso # Seg Neutrophils % Seg Neuts % (Manual) Lymphocytes % (Manual) Monocytes % (Manual) Eosinophils % (Manual) Basophils % (Manual) Nucleated RBC % Seg Neutrophils # Seg Neutrophils # Man Lymphocytes # (Manual) Monocytes # (Manual) Eosinophils # (Manual) Basophils # (Manual) PT INR Fibrinogen dRVVT Confirm Interp Factor V Activity POC ABG pH POC ABG pCO2 POC ABG pO2 ABG pO2 ABG HCO3 ABG Base Excess ABG Hemoglobin Oxyhemoglobin Sodium Potassium Chloride Carbon Dioxide BUN Creatinine Glucose POC Glucose 167 H 125 H 133 H Lactic Acid Calcium Ionized Calcium Phosphorus Magnesium Direct Bilirubin AST ALT Alkaline Phosphatase Lactate Dehydrogenase Troponin T C-Reactive Protein Total Protein Albumin Prealbumin Triglycerides Cholesterol LDL Cholesterol Direct HDL Cholesterol 25-OH Vitamin D Total PTH Intact Urine pH Urine WBC (Auto) Urine Creatinine Urine Total Protein Fluid Total Protein Vancomycin Trough Rheumatoid Factor Complement C4 Miscellaneous Test Crossmatch 12/31/16 01/01/17 01/01/17 23:55 05:00 05:12 WBC RBC Hgb Hct MCV MCH MCHC RDW Plt Count Lymph % (Auto) [place] % (Auto) Lymph # [place] # Baso # Seg Neutrophils % Seg Neuts % (Manual) Lymphocytes % (Manual) Monocytes % (Manual) Eosinophils % (Manual) Basophils % (Manual) Nucleated RBC % Seg Neutrophils # Seg Neutrophils # Man Lymphocytes # (Manual) Monocytes # (Manual) Eosinophils # (Manual) Basophils # (Manual) PT INR Fibrinogen dRVVT Confirm Interp Factor V Activity POC ABG pH POC ABG pCO2 POC ABG pO2 ABG pO2 ABG HCO3 ABG Base Excess ABG Hemoglobin Oxyhemoglobin Sodium Potassium Chloride Carbon Dioxide BUN 76 H Creatinine 1.5 H Glucose 109 H POC Glucose 129 H 129 H Lactic Acid Calcium Ionized Calcium Phosphorus Magnesium Direct Bilirubin AST ALT Alkaline Phosphatase 536 H Lactate Dehydrogenase Troponin T C-Reactive Protein Total Protein Albumin 1.5 L Prealbumin Triglycerides Cholesterol LDL Cholesterol Direct HDL Cholesterol 25-OH Vitamin D Total PTH Intact Urine pH Urine WBC (Auto) Urine Creatinine Urine Total Protein Fluid Total Protein Vancomycin Trough Rheumatoid Factor Complement C4 Miscellaneous Test Crossmatch 01/01/17 01/01/17 01/01/17 12:25 17:01 23:32 WBC RBC Hgb Hct MCV MCH MCHC RDW Plt Count Lymph % (Auto) [place] % (Auto) Lymph # [place] # Baso # Seg Neutrophils % Seg Neuts % (Manual) Lymphocytes % (Manual) Monocytes % (Manual) Eosinophils % (Manual) Basophils % (Manual) Nucleated RBC % Seg Neutrophils # Seg Neutrophils # Man Lymphocytes # (Manual) Monocytes # (Manual) Eosinophils # (Manual) Basophils # (Manual) PT INR Fibrinogen dRVVT Confirm Interp Factor V Activity POC ABG pH POC ABG pCO2 POC ABG pO2 ABG pO2 ABG HCO3 ABG Base Excess ABG Hemoglobin Oxyhemoglobin Sodium Potassium Chloride Carbon Dioxide BUN Creatinine Glucose POC Glucose 140 H 142 H 112 H Lactic Acid Calcium Ionized Calcium Phosphorus Magnesium Direct Bilirubin AST ALT Alkaline Phosphatase Lactate Dehydrogenase Troponin T C-Reactive Protein Total Protein Albumin Prealbumin Triglycerides Cholesterol LDL Cholesterol Direct HDL Cholesterol 25-OH Vitamin D Total PTH Intact Urine pH Urine WBC (Auto) Urine Creatinine Urine Total Protein Fluid Total Protein Vancomycin Trough Rheumatoid Factor Complement C4 Miscellaneous Test Crossmatch 01/02/17 01/02/17 01/02/17 04:56 06:00 11:37 WBC RBC Hgb Hct MCV MCH MCHC RDW Plt Count Lymph % (Auto) [place] % (Auto) Lymph # [place] # Baso # Seg Neutrophils % Seg Neuts % (Manual) Lymphocytes % (Manual) Monocytes % (Manual) Eosinophils % (Manual) Basophils % (Manual) Nucleated RBC % Seg Neutrophils # Seg Neutrophils # Man Lymphocytes # (Manual) Monocytes # (Manual) Eosinophils # (Manual) Basophils # (Manual) PT INR Fibrinogen dRVVT Confirm Interp Factor V Activity POC ABG pH POC ABG pCO2 POC ABG pO2 ABG pO2 ABG HCO3 ABG Base Excess ABG Hemoglobin Oxyhemoglobin Sodium Potassium Chloride Carbon Dioxide BUN 88 H Creatinine 1.7 H Glucose 113 H POC Glucose 136 H 200 H Lactic Acid Calcium Ionized Calcium Phosphorus Magnesium Direct Bilirubin AST ALT Alkaline Phosphatase Lactate Dehydrogenase Troponin T C-Reactive Protein Total Protein Albumin Prealbumin Triglycerides Cholesterol LDL Cholesterol Direct HDL Cholesterol 25-OH Vitamin D Total PTH Intact Urine pH Urine WBC (Auto) Urine Creatinine Urine Total Protein Fluid Total Protein Vancomycin Trough Rheumatoid Factor Complement C4 Miscellaneous Test Crossmatch 01/02/17 01/02/17 01/03/17 17:42 22:52 04:54 WBC RBC Hgb Hct MCV MCH MCHC RDW Plt Count Lymph % (Auto) [place] % (Auto) Lymph # [place] # Baso # Seg Neutrophils % Seg Neuts % (Manual) Lymphocytes % (Manual) Monocytes % (Manual) Eosinophils % (Manual) Basophils % (Manual) Nucleated RBC % Seg Neutrophils # Seg Neutrophils # Man Lymphocytes # (Manual) Monocytes # (Manual) Eosinophils # (Manual) Basophils # (Manual) PT INR Fibrinogen dRVVT Confirm Interp Factor V Activity POC ABG pH POC ABG pCO2 POC ABG pO2 ABG pO2 ABG HCO3 ABG Base Excess ABG Hemoglobin Oxyhemoglobin Sodium Potassium Chloride Carbon Dioxide BUN Creatinine Glucose POC Glucose 112 H 133 H 111 H Lactic Acid Calcium Ionized Calcium Phosphorus Magnesium Direct Bilirubin AST ALT Alkaline Phosphatase Lactate Dehydrogenase Troponin T C-Reactive Protein Total Protein Albumin Prealbumin Triglycerides Cholesterol LDL Cholesterol Direct HDL Cholesterol 25-OH Vitamin D Total PTH Intact Urine pH Urine WBC (Auto) Urine Creatinine Urine Total Protein Fluid Total Protein Vancomycin Trough Rheumatoid Factor Complement C4 Miscellaneous Test Crossmatch 01/03/17 01/03/17 01/03/17 05:00 05:00 14:02 WBC 11.2 H RBC 2.56 L Hgb 7.2 L Hct 22.3 L MCV MCH MCHC RDW 17.3 H Plt Count Lymph % (Auto) [place] % (Auto) 10.0 H Lymph # [place] # 1.1 H Baso # Seg Neutrophils % 70.5 H Seg Neuts % (Manual) Lymphocytes % (Manual) Monocytes % (Manual) Eosinophils % (Manual) Basophils % (Manual) Nucleated RBC % Seg Neutrophils # 7.9 H Seg Neutrophils # Man Lymphocytes # (Manual) Monocytes # (Manual) Eosinophils # (Manual) Basophils # (Manual) PT INR Fibrinogen dRVVT Confirm Interp Factor V Activity POC ABG pH POC ABG pCO2 POC ABG pO2 ABG pO2 ABG HCO3 ABG Base Excess ABG Hemoglobin Oxyhemoglobin Sodium Potassium Chloride Carbon Dioxide BUN 60 H Creatinine 1.3 H Glucose 110 H POC Glucose 119 H Lactic Acid Calcium Ionized Calcium Phosphorus Magnesium Direct Bilirubin AST ALT Alkaline Phosphatase Lactate Dehydrogenase Troponin T C-Reactive Protein Total Protein Albumin Prealbumin Triglycerides Cholesterol LDL Cholesterol Direct HDL Cholesterol 25-OH Vitamin D Total PTH Intact Urine pH Urine WBC (Auto) Urine Creatinine Urine Total Protein Fluid Total Protein Vancomycin Trough Rheumatoid Factor Complement C4 Miscellaneous Test Crossmatch 01/03/17 01/03/17 01/04/17 18:13 23:40 05:57 WBC RBC Hgb Hct MCV MCH MCHC RDW Plt Count Lymph % (Auto) [place] % (Auto) Lymph # [place] # Baso # Seg Neutrophils % Seg Neuts % (Manual) Lymphocytes % (Manual) Monocytes % (Manual) Eosinophils % (Manual) Basophils % (Manual) Nucleated RBC % Seg Neutrophils # Seg Neutrophils # Man Lymphocytes # (Manual) Monocytes # (Manual) Eosinophils # (Manual) Basophils # (Manual) PT INR Fibrinogen dRVVT Confirm Interp Factor V Activity POC ABG pH POC ABG pCO2 POC ABG pO2 ABG pO2 ABG HCO3 ABG Base Excess ABG Hemoglobin Oxyhemoglobin Sodium Potassium Chloride Carbon Dioxide BUN Creatinine Glucose POC Glucose 107 H 129 H 111 H Lactic Acid Calcium Ionized Calcium Phosphorus Magnesium Direct Bilirubin AST ALT Alkaline Phosphatase Lactate Dehydrogenase Troponin T C-Reactive Protein Total Protein Albumin Prealbumin Triglycerides Cholesterol LDL Cholesterol Direct HDL Cholesterol 25-OH Vitamin D Total PTH Intact Urine pH Urine WBC (Auto) Urine Creatinine Urine Total Protein Fluid Total Protein Vancomycin Trough Rheumatoid Factor Complement C4 Miscellaneous Test Crossmatch 01/04/17 01/04/17 01/04/17 12:46 15:27 17:11 WBC RBC Hgb Hct MCV MCH MCHC RDW Plt Count Lymph % (Auto) [place] % (Auto) Lymph # [place] # Baso # Seg Neutrophils % Seg Neuts % (Manual) Lymphocytes % (Manual) Monocytes % (Manual) Eosinophils % (Manual) Basophils % (Manual) Nucleated RBC % Seg Neutrophils # Seg Neutrophils # Man Lymphocytes # (Manual) Monocytes # (Manual) Eosinophils # (Manual) Basophils # (Manual) PT INR Fibrinogen dRVVT Confirm Interp Factor V Activity POC ABG pH POC ABG pCO2 POC ABG pO2 ABG pO2 ABG HCO3 ABG Base Excess ABG Hemoglobin Oxyhemoglobin Sodium Potassium Chloride Carbon Dioxide BUN 43 H Creatinine Glucose 124 H POC Glucose 159 H 125 H Lactic Acid Calcium 8.0 L Ionized Calcium Phosphorus 2.10 L Magnesium Direct Bilirubin AST ALT Alkaline Phosphatase Lactate Dehydrogenase Troponin T C-Reactive Protein Total Protein Albumin Prealbumin Triglycerides Cholesterol LDL Cholesterol Direct HDL Cholesterol 25-OH Vitamin D Total PTH Intact Urine pH Urine WBC (Auto) Urine Creatinine Urine Total Protein Fluid Total Protein Vancomycin Trough Rheumatoid Factor Complement C4 Miscellaneous Test Crossmatch 01/04/17 01/05/17 01/05/17 23:31 04:00 05:46 WBC RBC Hgb Hct MCV MCH MCHC RDW Plt Count Lymph % (Auto) [place] % (Auto) Lymph # [place] # Baso # Seg Neutrophils % Seg Neuts % (Manual) Lymphocytes % (Manual) Monocytes % (Manual) Eosinophils % (Manual) Basophils % (Manual) Nucleated RBC % Seg Neutrophils # Seg Neutrophils # Man Lymphocytes # (Manual) Monocytes # (Manual) Eosinophils # (Manual) Basophils # (Manual) PT INR Fibrinogen dRVVT Confirm Interp Factor V Activity POC ABG pH POC ABG pCO2 POC ABG pO2 ABG pO2 ABG HCO3 ABG Base Excess ABG Hemoglobin Oxyhemoglobin Sodium Potassium Chloride Carbon Dioxide BUN 52 H Creatinine 1.3 H Glucose 113 H POC Glucose 123 H 118 H Lactic Acid Calcium Ionized Calcium Phosphorus 2.40 L Magnesium Direct Bilirubin AST ALT Alkaline Phosphatase Lactate Dehydrogenase Troponin T C-Reactive Protein Total Protein Albumin Prealbumin Triglycerides Cholesterol LDL Cholesterol Direct HDL Cholesterol 25-OH Vitamin D Total PTH Intact Urine pH Urine WBC (Auto) Urine Creatinine Urine Total Protein Fluid Total Protein Vancomycin Trough Rheumatoid Factor Complement C4 Miscellaneous Test Crossmatch 01/05/17 01/05/17 01/05/17 11:41 17:48 23:27 WBC RBC Hgb Hct MCV MCH MCHC RDW Plt Count Lymph % (Auto) [place] % (Auto) Lymph # [place] # Baso # Seg Neutrophils % Seg Neuts % (Manual) Lymphocytes % (Manual) Monocytes % (Manual) Eosinophils % (Manual) Basophils % (Manual) Nucleated RBC % Seg Neutrophils # Seg Neutrophils # Man Lymphocytes # (Manual) Monocytes # (Manual) Eosinophils # (Manual) Basophils # (Manual) PT INR Fibrinogen dRVVT Confirm Interp Factor V Activity POC ABG pH POC ABG pCO2 POC ABG pO2 ABG pO2 ABG HCO3 ABG Base Excess ABG Hemoglobin Oxyhemoglobin Sodium Potassium Chloride Carbon Dioxide BUN Creatinine Glucose POC Glucose 163 H 142 H 155 H Lactic Acid Calcium Ionized Calcium Phosphorus Magnesium Direct Bilirubin AST ALT Alkaline Phosphatase Lactate Dehydrogenase Troponin T C-Reactive Protein Total Protein Albumin Prealbumin Triglycerides Cholesterol LDL Cholesterol Direct HDL Cholesterol 25-OH Vitamin D Total PTH Intact Urine pH Urine WBC (Auto) Urine Creatinine Urine Total Protein Fluid Total Protein Vancomycin Trough Rheumatoid Factor Complement C4 Miscellaneous Test Crossmatch 01/06/17 01/06/17 01/06/17 05:20 07:35 11:18 WBC RBC Hgb Hct MCV MCH MCHC RDW Plt Count Lymph % (Auto) [place] % (Auto) Lymph # [place] # Baso # Seg Neutrophils % Seg Neuts % (Manual) Lymphocytes % (Manual) Monocytes % (Manual) Eosinophils % (Manual) Basophils % (Manual) Nucleated RBC % Seg Neutrophils # Seg Neutrophils # Man Lymphocytes # (Manual) Monocytes # (Manual) Eosinophils # (Manual) Basophils # (Manual) PT INR Fibrinogen dRVVT Confirm Interp Factor V Activity POC ABG pH POC ABG pCO2 POC ABG pO2 ABG pO2 ABG HCO3 ABG Base Excess ABG Hemoglobin Oxyhemoglobin Sodium Potassium Chloride Carbon Dioxide BUN 74 H Creatinine 1.6 H Glucose 135 H POC Glucose 108 H 149 H Lactic Acid Calcium Ionized Calcium Phosphorus Magnesium Direct Bilirubin AST ALT Alkaline Phosphatase Lactate Dehydrogenase Troponin T C-Reactive Protein Total Protein Albumin Prealbumin Triglycerides Cholesterol LDL Cholesterol Direct HDL Cholesterol 25-OH Vitamin D Total PTH Intact Urine pH Urine WBC (Auto) Urine Creatinine Urine Total Protein Fluid Total Protein Vancomycin Trough Rheumatoid Factor Complement C4 Miscellaneous Test Crossmatch 01/06/17 01/07/17 01/07/17 17:17 00:23 05:31 WBC RBC Hgb Hct MCV MCH MCHC RDW Plt Count Lymph % (Auto) [place] % (Auto) Lymph # [place] # Baso # Seg Neutrophils % Seg Neuts % (Manual) Lymphocytes % (Manual) Monocytes % (Manual) Eosinophils % (Manual) Basophils % (Manual) Nucleated RBC % Seg Neutrophils # Seg Neutrophils # Man Lymphocytes # (Manual) Monocytes # (Manual) Eosinophils # (Manual) Basophils # (Manual) PT INR Fibrinogen dRVVT Confirm Interp Factor V Activity POC ABG pH POC ABG pCO2 POC ABG pO2 ABG pO2 ABG HCO3 ABG Base Excess ABG Hemoglobin Oxyhemoglobin Sodium Potassium Chloride Carbon Dioxide BUN Creatinine Glucose POC Glucose 146 H 165 H 153 H Lactic Acid Calcium Ionized Calcium Phosphorus Magnesium Direct Bilirubin AST ALT Alkaline Phosphatase Lactate Dehydrogenase Troponin T C-Reactive Protein Total Protein Albumin Prealbumin Triglycerides Cholesterol LDL Cholesterol Direct HDL Cholesterol 25-OH Vitamin D Total PTH Intact Urine pH Urine WBC (Auto) Urine Creatinine Urine Total Protein Fluid Total Protein Vancomycin Trough Rheumatoid Factor Complement C4 Miscellaneous Test Crossmatch 01/07/17 01/07/17 01/07/17 06:00 11:39 17:11 WBC RBC Hgb Hct MCV MCH MCHC RDW Plt Count Lymph % (Auto) [place] % (Auto) Lymph # [place] # Baso # Seg Neutrophils % Seg Neuts % (Manual) Lymphocytes % (Manual) Monocytes % (Manual) Eosinophils % (Manual) Basophils % (Manual) Nucleated RBC % Seg Neutrophils # Seg Neutrophils # Man Lymphocytes # (Manual) Monocytes # (Manual) Eosinophils # (Manual) Basophils # (Manual) PT INR Fibrinogen dRVVT Confirm Interp Factor V Activity POC ABG pH POC ABG pCO2 POC ABG pO2 ABG pO2 ABG HCO3 ABG Base Excess ABG Hemoglobin Oxyhemoglobin Sodium Potassium Chloride Carbon Dioxide BUN 42 H Creatinine Glucose 175 H POC Glucose 163 H 163 H Lactic Acid Calcium Ionized Calcium Phosphorus 2.40 L D Magnesium Direct Bilirubin AST ALT Alkaline Phosphatase Lactate Dehydrogenase Troponin T C-Reactive Protein Total Protein Albumin Prealbumin Triglycerides Cholesterol LDL Cholesterol Direct HDL Cholesterol 25-OH Vitamin D Total PTH Intact Urine pH Urine WBC (Auto) Urine Creatinine Urine Total Protein Fluid Total Protein Vancomycin Trough Rheumatoid Factor Complement C4 Miscellaneous Test Crossmatch 01/07/17 01/08/17 01/08/17 23:40 05:00 05:00 WBC 27.4 H RBC 2.27 L Hgb 6.1 L Hct 20.4 L MCV MCH 27 L MCHC RDW 17.8 H Plt Count Lymph % (Auto) [place] % (Auto) Lymph # [place] # Baso # Seg Neutrophils % Seg Neuts % (Manual) Lymphocytes % (Manual) Monocytes % (Manual) Eosinophils % (Manual) Basophils % (Manual) Nucleated RBC % Seg Neutrophils # Seg Neutrophils # Man Lymphocytes # (Manual) Monocytes # (Manual) Eosinophils # (Manual) Basophils # (Manual) PT INR Fibrinogen dRVVT Confirm Interp Factor V Activity POC ABG pH POC ABG pCO2 POC ABG pO2 ABG pO2 ABG HCO3 ABG Base Excess ABG Hemoglobin Oxyhemoglobin Sodium Potassium Chloride Carbon Dioxide 16 L D BUN 62 H Creatinine 1.6 H D Glucose 103 H POC Glucose 135 H Lactic Acid Calcium Ionized Calcium Phosphorus Magnesium Direct Bilirubin AST ALT Alkaline Phosphatase Lactate Dehydrogenase Troponin T C-Reactive Protein Total Protein Albumin Prealbumin Triglycerides Cholesterol LDL Cholesterol Direct HDL Cholesterol 25-OH Vitamin D Total PTH Intact Urine pH Urine WBC (Auto) Urine Creatinine Urine Total Protein Fluid Total Protein Vancomycin Trough Rheumatoid Factor Complement C4 Miscellaneous Test Crossmatch 01/08/17 01/08/17 01/08/17 05:25 10:37 10:37 WBC RBC Hgb Hct MCV MCH MCHC RDW Plt Count Lymph % (Auto) [place] % (Auto) Lymph # [place] # Baso # Seg Neutrophils % Seg Neuts % (Manual) Lymphocytes % (Manual) Monocytes % (Manual) Eosinophils % (Manual) Basophils % (Manual) Nucleated RBC % Seg Neutrophils # Seg Neutrophils # Man Lymphocytes # (Manual) Monocytes # (Manual) Eosinophils # (Manual) Basophils # (Manual) PT INR Fibrinogen dRVVT Confirm Interp Factor V Activity POC ABG pH POC ABG pCO2 POC ABG pO2 ABG pO2 ABG HCO3 ABG Base Excess ABG Hemoglobin Oxyhemoglobin Sodium Potassium Chloride Carbon Dioxide BUN Creatinine Glucose POC Glucose 106 H Lactic Acid Calcium Ionized Calcium Phosphorus Magnesium Direct Bilirubin AST ALT Alkaline Phosphatase Lactate Dehydrogenase Troponin T C-Reactive Protein 24.40 H Total Protein Albumin Prealbumin Triglycerides Cholesterol LDL Cholesterol Direct HDL Cholesterol 25-OH Vitamin D Total PTH Intact Urine pH Urine WBC (Auto) Urine Creatinine Urine Total Protein Fluid Total Protein Vancomycin Trough Rheumatoid Factor Complement C4 Miscellaneous Test Crossmatch See Detail 01/08/17 01/08/17 01/08/17 10:37 11:33 15:15 WBC RBC Hgb Hct MCV MCH MCHC RDW Plt Count Lymph % (Auto) [place] % (Auto) Lymph # [place] # Baso # Seg Neutrophils % Seg Neuts % (Manual) Lymphocytes % (Manual) Monocytes % (Manual) Eosinophils % (Manual) Basophils % (Manual) Nucleated RBC % Seg Neutrophils # Seg Neutrophils # Man Lymphocytes # (Manual) Monocytes # (Manual) Eosinophils # (Manual) Basophils # (Manual) PT INR Fibrinogen dRVVT Confirm Interp Factor V Activity POC ABG pH POC ABG pCO2 POC ABG pO2 ABG pO2 ABG HCO3 ABG Base Excess ABG Hemoglobin Oxyhemoglobin Sodium Potassium Chloride Carbon Dioxide BUN Creatinine Glucose POC Glucose 157 H Lactic Acid 9.70 H* 9.10 H* Calcium Ionized Calcium Phosphorus Magnesium Direct Bilirubin AST ALT Alkaline Phosphatase Lactate Dehydrogenase Troponin T C-Reactive Protein Total Protein Albumin Prealbumin Triglycerides Cholesterol LDL Cholesterol Direct HDL Cholesterol 25-OH Vitamin D Total PTH Intact Urine pH Urine WBC (Auto) Urine Creatinine Urine Total Protein Fluid Total Protein Vancomycin Trough Rheumatoid Factor Complement C4 Miscellaneous Test Crossmatch 01/08/17 01/08/17 01/09/17 17:19 23:12 04:40 WBC RBC Hgb Hct MCV MCH MCHC RDW Plt Count Lymph % (Auto) [place] % (Auto) Lymph # [place] # Baso # Seg Neutrophils % Seg Neuts % (Manual) Lymphocytes % (Manual) Monocytes % (Manual) Eosinophils % (Manual) Basophils % (Manual) Nucleated RBC % Seg Neutrophils # Seg Neutrophils # Man Lymphocytes # (Manual) Monocytes # (Manual) Eosinophils # (Manual) Basophils # (Manual) PT INR Fibrinogen dRVVT Confirm Interp Factor V Activity POC ABG pH POC ABG pCO2 POC ABG pO2 ABG pO2 ABG HCO3 ABG Base Excess ABG Hemoglobin Oxyhemoglobin Sodium 147 H Potassium Chloride Carbon Dioxide BUN 82 H Creatinine 1.8 H Glucose 137 H POC Glucose 164 H 157 H Lactic Acid Calcium Ionized Calcium Phosphorus Magnesium Direct Bilirubin AST ALT Alkaline Phosphatase Lactate Dehydrogenase Troponin T C-Reactive Protein Total Protein Albumin Prealbumin Triglycerides Cholesterol LDL Cholesterol Direct HDL Cholesterol 25-OH Vitamin D Total PTH Intact Urine pH Urine WBC (Auto) Urine Creatinine Urine Total Protein Fluid Total Protein Vancomycin Trough Rheumatoid Factor Complement C4 Miscellaneous Test Crossmatch 01/09/17 01/09/17 01/09/17 05:42 08:22 10:57 WBC RBC Hgb Hct MCV MCH MCHC RDW Plt Count Lymph % (Auto) [place] % (Auto) Lymph # [place] # Baso # Seg Neutrophils % Seg Neuts % (Manual) Lymphocytes % (Manual) Monocytes % (Manual) Eosinophils % (Manual) Basophils % (Manual) Nucleated RBC % Seg Neutrophils # Seg Neutrophils # Man Lymphocytes # (Manual) Monocytes # (Manual) Eosinophils # (Manual) Basophils # (Manual) PT INR Fibrinogen dRVVT Confirm Interp Factor V Activity POC ABG pH POC ABG pCO2 POC ABG pO2 ABG pO2 ABG HCO3 ABG Base Excess ABG Hemoglobin Oxyhemoglobin Sodium Potassium Chloride Carbon Dioxide BUN Creatinine Glucose POC Glucose 156 H 122 H Lactic Acid 2.30 H* Calcium Ionized Calcium Phosphorus Magnesium Direct Bilirubin AST ALT Alkaline Phosphatase Lactate Dehydrogenase Troponin T C-Reactive Protein Total Protein Albumin Prealbumin Triglycerides Cholesterol LDL Cholesterol Direct HDL Cholesterol 25-OH Vitamin D Total PTH Intact Urine pH Urine WBC (Auto) Urine Creatinine Urine Total Protein Fluid Total Protein Vancomycin Trough Rheumatoid Factor Complement C4 Miscellaneous Test Crossmatch 01/09/17 01/09/17 01/09/17 13:30 17:14 18:45 WBC RBC Hgb Hct MCV MCH MCHC RDW Plt Count Lymph % (Auto) [place] % (Auto) Lymph # [place] # Baso # Seg Neutrophils % Seg Neuts % (Manual) Lymphocytes % (Manual) Monocytes % (Manual) Eosinophils % (Manual) Basophils % (Manual) Nucleated RBC % Seg Neutrophils # Seg Neutrophils # Man Lymphocytes # (Manual) Monocytes # (Manual) Eosinophils # (Manual) Basophils # (Manual) PT INR Fibrinogen dRVVT Confirm Interp Factor V Activity POC ABG pH POC ABG pCO2 POC ABG pO2 ABG pO2 ABG HCO3 ABG Base Excess ABG Hemoglobin Oxyhemoglobin Sodium Potassium Chloride Carbon Dioxide BUN Creatinine Glucose POC Glucose 127 H Lactic Acid Calcium Ionized Calcium Phosphorus Magnesium Direct Bilirubin AST ALT Alkaline Phosphatase Lactate Dehydrogenase Troponin T C-Reactive Protein 24.70 H Total Protein Albumin Prealbumin Triglycerides Cholesterol LDL Cholesterol Direct HDL Cholesterol 25-OH Vitamin D Total PTH Intact Urine pH Urine WBC (Auto) Urine Creatinine Urine Total Protein Fluid Total Protein Vancomycin Trough Rheumatoid Factor Complement C4 Miscellaneous Test Flexitest 1 H Crossmatch 01/10/17 01/10/17 01/10/17 01:21 04:00 04:00 WBC 18.1 H RBC 3.22 L Hgb 8.8 L Hct 27.0 L D MCV MCH 27 L MCHC RDW 17.0 H Plt Count Lymph % (Auto) [place] % (Auto) Lymph # [place] # Baso # Seg Neutrophils % Seg Neuts % (Manual) Lymphocytes % (Manual) Monocytes % (Manual) Eosinophils % (Manual) Basophils % (Manual) Nucleated RBC % Seg Neutrophils # Seg Neutrophils # Man Lymphocytes # (Manual) Monocytes # (Manual) Eosinophils # (Manual) Basophils # (Manual) PT INR Fibrinogen dRVVT Confirm Interp Factor V Activity POC ABG pH POC ABG pCO2 POC ABG pO2 ABG pO2 ABG HCO3 ABG Base Excess ABG Hemoglobin Oxyhemoglobin Sodium Potassium Chloride Carbon Dioxide BUN 59 H Creatinine 1.3 H Glucose 122 H POC Glucose 160 H Lactic Acid Calcium Ionized Calcium Phosphorus Magnesium Direct Bilirubin AST ALT Alkaline Phosphatase Lactate Dehydrogenase Troponin T C-Reactive Protein Total Protein Albumin Prealbumin Triglycerides Cholesterol LDL Cholesterol Direct HDL Cholesterol 25-OH Vitamin D Total PTH Intact Urine pH Urine WBC (Auto) Urine Creatinine Urine Total Protein Fluid Total Protein Vancomycin Trough Rheumatoid Factor Complement C4 Miscellaneous Test Crossmatch 01/10/17 01/10/17 01/10/17 05:36 12:14 17:55 WBC RBC Hgb Hct MCV MCH MCHC RDW Plt Count Lymph % (Auto) [place] % (Auto) Lymph # [place] # Baso # Seg Neutrophils % Seg Neuts % (Manual) Lymphocytes % (Manual) Monocytes % (Manual) Eosinophils % (Manual) Basophils % (Manual) Nucleated RBC % Seg Neutrophils # Seg Neutrophils # Man Lymphocytes # (Manual) Monocytes # (Manual) Eosinophils # (Manual) Basophils # (Manual) PT INR Fibrinogen dRVVT Confirm Interp Factor V Activity POC ABG pH POC ABG pCO2 POC ABG pO2 ABG pO2 ABG HCO3 ABG Base Excess ABG Hemoglobin Oxyhemoglobin Sodium Potassium Chloride Carbon Dioxide BUN Creatinine Glucose POC Glucose 163 H 120 H 144 H Lactic Acid Calcium Ionized Calcium Phosphorus Magnesium Direct Bilirubin AST ALT Alkaline Phosphatase Lactate Dehydrogenase Troponin T C-Reactive Protein Total Protein Albumin Prealbumin Triglycerides Cholesterol LDL Cholesterol Direct HDL Cholesterol 25-OH Vitamin D Total PTH Intact Urine pH Urine WBC (Auto) Urine Creatinine Urine Total Protein Fluid Total Protein Vancomycin Trough Rheumatoid Factor Complement C4 Miscellaneous Test Crossmatch 01/11/17 01/11/17 01/11/17 00:09 04:00 04:00 WBC 15.8 H RBC 3.04 L Hgb 8.2 L Hct 25.5 L MCV MCH 27 L MCHC RDW 17.3 H Plt Count Lymph % (Auto) [place] % (Auto) Lymph # [place] # Baso # Seg Neutrophils % Seg Neuts % (Manual) Lymphocytes % (Manual) Monocytes % (Manual) Eosinophils % (Manual) Basophils % (Manual) Nucleated RBC % Seg Neutrophils # Seg Neutrophils # Man Lymphocytes # (Manual) Monocytes # (Manual) Eosinophils # (Manual) Basophils # (Manual) PT INR Fibrinogen dRVVT Confirm Interp Factor V Activity POC ABG pH POC ABG pCO2 POC ABG pO2 ABG pO2 ABG HCO3 ABG Base Excess ABG Hemoglobin Oxyhemoglobin Sodium Potassium Chloride Carbon Dioxide BUN 78 H Creatinine 1.6 H Glucose 109 H POC Glucose 122 H Lactic Acid Calcium Ionized Calcium Phosphorus Magnesium Direct Bilirubin AST ALT Alkaline Phosphatase Lactate Dehydrogenase Troponin T C-Reactive Protein Total Protein Albumin Prealbumin Triglycerides Cholesterol LDL Cholesterol Direct HDL Cholesterol 25-OH Vitamin D Total PTH Intact Urine pH Urine WBC (Auto) Urine Creatinine Urine Total Protein Fluid Total Protein Vancomycin Trough Rheumatoid Factor Complement C4 Miscellaneous Test Crossmatch 01/11/17 01/11/17 01/11/17 12:46 18:23 23:42 WBC RBC Hgb Hct MCV MCH MCHC RDW Plt Count Lymph % (Auto) [place] % (Auto) Lymph # [place] # Baso # Seg Neutrophils % Seg Neuts % (Manual) Lymphocytes % (Manual) Monocytes % (Manual) Eosinophils % (Manual) Basophils % (Manual) Nucleated RBC % Seg Neutrophils # Seg Neutrophils # Man Lymphocytes # (Manual) Monocytes # (Manual) Eosinophils # (Manual) Basophils # (Manual) PT INR Fibrinogen dRVVT Confirm Interp Factor V Activity POC ABG pH POC ABG pCO2 POC ABG pO2 ABG pO2 ABG HCO3 ABG Base Excess ABG Hemoglobin Oxyhemoglobin Sodium Potassium Chloride Carbon Dioxide BUN Creatinine Glucose POC Glucose 148 H 125 H 124 H Lactic Acid Calcium Ionized Calcium Phosphorus Magnesium Direct Bilirubin AST ALT Alkaline Phosphatase Lactate Dehydrogenase Troponin T C-Reactive Protein Total Protein Albumin Prealbumin Triglycerides Cholesterol LDL Cholesterol Direct HDL Cholesterol 25-OH Vitamin D Total PTH Intact Urine pH Urine WBC (Auto) Urine Creatinine Urine Total Protein Fluid Total Protein Vancomycin Trough Rheumatoid Factor Complement C4 Miscellaneous Test Crossmatch 01/12/17 01/12/17 01/12/17 04:30 04:30 05:47 WBC 15.8 H RBC 3.31 L Hgb 8.9 L Hct 27.9 L MCV MCH 27 L MCHC RDW 17.4 H Plt Count Lymph % (Auto) [place] % (Auto) Lymph # [place] # Baso # Seg Neutrophils % Seg Neuts % (Manual) Lymphocytes % (Manual) Monocytes % (Manual) Eosinophils % (Manual) Basophils % (Manual) Nucleated RBC % Seg Neutrophils # Seg Neutrophils # Man Lymphocytes # (Manual) Monocytes # (Manual) Eosinophils # (Manual) Basophils # (Manual) PT INR Fibrinogen dRVVT Confirm Interp Factor V Activity POC ABG pH POC ABG pCO2 POC ABG pO2 ABG pO2 ABG HCO3 ABG Base Excess ABG Hemoglobin Oxyhemoglobin Sodium Potassium Chloride Carbon Dioxide BUN 57 H Creatinine Glucose 121 H POC Glucose 110 H Lactic Acid Calcium Ionized Calcium Phosphorus 2.10 L Magnesium Direct Bilirubin AST ALT Alkaline Phosphatase Lactate Dehydrogenase Troponin T C-Reactive Protein Total Protein Albumin Prealbumin Triglycerides Cholesterol LDL Cholesterol Direct HDL Cholesterol 25-OH Vitamin D Total PTH Intact Urine pH Urine WBC (Auto) Urine Creatinine Urine Total Protein Fluid Total Protein Vancomycin Trough Rheumatoid Factor Complement C4 Miscellaneous Test Crossmatch 01/12/17 01/12/17 01/12/17 11:35 17:45 23:14 WBC RBC Hgb Hct MCV MCH MCHC RDW Plt Count Lymph % (Auto) [place] % (Auto) Lymph # [place] # Baso # Seg Neutrophils % Seg Neuts % (Manual) Lymphocytes % (Manual) Monocytes % (Manual) Eosinophils % (Manual) Basophils % (Manual) Nucleated RBC % Seg Neutrophils # Seg Neutrophils # Man Lymphocytes # (Manual) Monocytes # (Manual) Eosinophils # (Manual) Basophils # (Manual) PT INR Fibrinogen dRVVT Confirm Interp Factor V Activity POC ABG pH POC ABG pCO2 POC ABG pO2 ABG pO2 ABG HCO3 ABG Base Excess ABG Hemoglobin Oxyhemoglobin Sodium Potassium Chloride Carbon Dioxide BUN Creatinine Glucose POC Glucose 146 H 117 H 123 H Lactic Acid Calcium Ionized Calcium Phosphorus Magnesium Direct Bilirubin AST ALT Alkaline Phosphatase Lactate Dehydrogenase Troponin T C-Reactive Protein Total Protein Albumin Prealbumin Triglycerides Cholesterol LDL Cholesterol Direct HDL Cholesterol 25-OH Vitamin D Total PTH Intact Urine pH Urine WBC (Auto) Urine Creatinine Urine Total Protein Fluid Total Protein Vancomycin Trough Rheumatoid Factor Complement C4 Miscellaneous Test Crossmatch 01/13/17 01/13/17 01/13/17 05:32 06:00 12:10 WBC RBC Hgb Hct MCV MCH MCHC RDW Plt Count Lymph % (Auto) [place] % (Auto) Lymph # [place] # Baso # Seg Neutrophils % Seg Neuts % (Manual) Lymphocytes % (Manual) Monocytes % (Manual) Eosinophils % (Manual) Basophils % (Manual) Nucleated RBC % Seg Neutrophils # Seg Neutrophils # Man Lymphocytes # (Manual) Monocytes # (Manual) Eosinophils # (Manual) Basophils # (Manual) PT INR Fibrinogen dRVVT Confirm Interp Factor V Activity POC ABG pH POC ABG pCO2 POC ABG pO2 ABG pO2 ABG HCO3 ABG Base Excess ABG Hemoglobin Oxyhemoglobin Sodium Potassium Chloride Carbon Dioxide BUN 80 H Creatinine 1.4 H Glucose 106 H POC Glucose 106 H Lactic Acid Calcium Ionized Calcium Phosphorus Magnesium Direct Bilirubin AST ALT Alkaline Phosphatase Lactate Dehydrogenase Troponin T C-Reactive Protein Total Protein Albumin Prealbumin Triglycerides Cholesterol LDL Cholesterol Direct HDL Cholesterol 25-OH Vitamin D Total PTH Intact Urine pH Urine WBC (Auto) Urine Creatinine Urine Total Protein Fluid Total Protein 3.0 L Vancomycin Trough Rheumatoid Factor Complement C4 Miscellaneous Test Crossmatch 01/13/17 01/13/17 01/13/17 12:17 15:50 17:30 WBC RBC Hgb Hct MCV MCH MCHC RDW Plt Count Lymph % (Auto) [place] % (Auto) Lymph # [place] # Baso # Seg Neutrophils % Seg Neuts % (Manual) Lymphocytes % (Manual) Monocytes % (Manual) Eosinophils % (Manual) Basophils % (Manual) Nucleated RBC % Seg Neutrophils # Seg Neutrophils # Man Lymphocytes # (Manual) Monocytes # (Manual) Eosinophils # (Manual) Basophils # (Manual) PT 15.4 H INR 1.16 H Fibrinogen dRVVT Confirm Interp Factor V Activity POC ABG pH POC ABG pCO2 POC ABG pO2 ABG pO2 ABG HCO3 ABG Base Excess ABG Hemoglobin Oxyhemoglobin Sodium Potassium Chloride Carbon Dioxide BUN Creatinine Glucose POC Glucose 168 H 110 H Lactic Acid Calcium Ionized Calcium Phosphorus Magnesium Direct Bilirubin AST ALT Alkaline Phosphatase Lactate Dehydrogenase Troponin T C-Reactive Protein Total Protein Albumin Prealbumin Triglycerides Cholesterol LDL Cholesterol Direct HDL Cholesterol 25-OH Vitamin D Total PTH Intact Urine pH Urine WBC (Auto) Urine Creatinine Urine Total Protein Fluid Total Protein Vancomycin Trough Rheumatoid Factor Complement C4 Miscellaneous Test Crossmatch 01/13/17 01/14/17 01/14/17 23:42 05:24 05:30 WBC RBC Hgb Hct MCV MCH MCHC RDW Plt Count Lymph % (Auto) [place] % (Auto) Lymph # [place] # Baso # Seg Neutrophils % Seg Neuts % (Manual) Lymphocytes % (Manual) Monocytes % (Manual) Eosinophils % (Manual) Basophils % (Manual) Nucleated RBC % Seg Neutrophils # Seg Neutrophils # Man Lymphocytes # (Manual) Monocytes # (Manual) Eosinophils # (Manual) Basophils # (Manual) PT INR Fibrinogen dRVVT Confirm Interp Factor V Activity POC ABG pH POC ABG pCO2 POC ABG pO2 ABG pO2 ABG HCO3 ABG Base Excess ABG Hemoglobin Oxyhemoglobin Sodium Potassium Chloride Carbon Dioxide BUN 58 H Creatinine Glucose 114 H POC Glucose 155 H 121 H Lactic Acid Calcium Ionized Calcium Phosphorus Magnesium Direct Bilirubin AST ALT Alkaline Phosphatase Lactate Dehydrogenase Troponin T C-Reactive Protein Total Protein Albumin Prealbumin Triglycerides Cholesterol LDL Cholesterol Direct HDL Cholesterol 25-OH Vitamin D Total PTH Intact Urine pH Urine WBC (Auto) Urine Creatinine Urine Total Protein Fluid Total Protein Vancomycin Trough Rheumatoid Factor Complement C4 Miscellaneous Test Crossmatch 01/14/17 01/14/17 01/15/17 12:48 17:36 00:15 WBC RBC Hgb Hct MCV MCH MCHC RDW Plt Count Lymph % (Auto) [place] % (Auto) Lymph # [place] # Baso # Seg Neutrophils % Seg Neuts % (Manual) Lymphocytes % (Manual) Monocytes % (Manual) Eosinophils % (Manual) Basophils % (Manual) Nucleated RBC % Seg Neutrophils # Seg Neutrophils # Man Lymphocytes # (Manual) Monocytes # (Manual) Eosinophils # (Manual) Basophils # (Manual) PT INR Fibrinogen dRVVT Confirm Interp Factor V Activity POC ABG pH POC ABG pCO2 POC ABG pO2 ABG pO2 ABG HCO3 ABG Base Excess ABG Hemoglobin Oxyhemoglobin Sodium Potassium Chloride Carbon Dioxide BUN Creatinine Glucose POC Glucose 130 H 135 H 132 H Lactic Acid Calcium Ionized Calcium Phosphorus Magnesium Direct Bilirubin AST ALT Alkaline Phosphatase Lactate Dehydrogenase Troponin T C-Reactive Protein Total Protein Albumin Prealbumin Triglycerides Cholesterol LDL Cholesterol Direct HDL Cholesterol 25-OH Vitamin D Total PTH Intact Urine pH Urine WBC (Auto) Urine Creatinine Urine Total Protein Fluid Total Protein Vancomycin Trough Rheumatoid Factor Complement C4 Miscellaneous Test Crossmatch 01/15/17 01/15/17 01/15/17 05:01 11:55 12:45 WBC 16.2 H RBC 3.00 L Hgb 8.1 L Hct 25.4 L MCV MCH 27 L MCHC RDW 17.6 H Plt Count Lymph % (Auto) 11.7 L [place] % (Auto) 7.8 H Lymph # [place] # 1.3 H Baso # Seg Neutrophils % 80.1 H Seg Neuts % (Manual) Lymphocytes % (Manual) Monocytes % (Manual) Eosinophils % (Manual) Basophils % (Manual) Nucleated RBC % Seg Neutrophils # 13.0 H Seg Neutrophils # Man Lymphocytes # (Manual) Monocytes # (Manual) Eosinophils # (Manual) Basophils # (Manual) PT INR Fibrinogen dRVVT Confirm Interp Factor V Activity POC ABG pH POC ABG pCO2 POC ABG pO2 ABG pO2 ABG HCO3 ABG Base Excess ABG Hemoglobin Oxyhemoglobin Sodium Potassium Chloride Carbon Dioxide BUN Creatinine Glucose POC Glucose 126 H 125 H Lactic Acid Calcium Ionized Calcium Phosphorus Magnesium Direct Bilirubin AST ALT Alkaline Phosphatase Lactate Dehydrogenase Troponin T C-Reactive Protein Total Protein Albumin Prealbumin Triglycerides Cholesterol LDL Cholesterol Direct HDL Cholesterol 25-OH Vitamin D Total PTH Intact Urine pH Urine WBC (Auto) Urine Creatinine Urine Total Protein Fluid Total Protein Vancomycin Trough Rheumatoid Factor Complement C4 Miscellaneous Test Crossmatch 01/15/17 01/15/17 01/15/17 12:45 17:31 23:39 WBC RBC Hgb Hct MCV MCH MCHC RDW Plt Count Lymph % (Auto) [place] % (Auto) Lymph # [place] # Baso # Seg Neutrophils % Seg Neuts % (Manual) Lymphocytes % (Manual) Monocytes % (Manual) Eosinophils % (Manual) Basophils % (Manual) Nucleated RBC % Seg Neutrophils # Seg Neutrophils # Man Lymphocytes # (Manual) Monocytes # (Manual) Eosinophils # (Manual) Basophils # (Manual) PT INR Fibrinogen dRVVT Confirm Interp Factor V Activity POC ABG pH POC ABG pCO2 POC ABG pO2 ABG pO2 ABG HCO3 ABG Base Excess ABG Hemoglobin Oxyhemoglobin Sodium 136 L Potassium Chloride Carbon Dioxide BUN 87 H Creatinine 1.7 H Glucose 108 H POC Glucose 129 H 112 H Lactic Acid Calcium Ionized Calcium Phosphorus Magnesium Direct Bilirubin AST ALT Alkaline Phosphatase Lactate Dehydrogenase Troponin T C-Reactive Protein Total Protein Albumin Prealbumin Triglycerides Cholesterol LDL Cholesterol Direct HDL Cholesterol 25-OH Vitamin D Total PTH Intact Urine pH Urine WBC (Auto) Urine Creatinine Urine Total Protein Fluid Total Protein Vancomycin Trough Rheumatoid Factor Complement C4 Miscellaneous Test Crossmatch 01/16/17 01/16/17 01/16/17 05:23 11:42 12:32 WBC RBC Hgb Hct MCV MCH MCHC RDW Plt Count Lymph % (Auto) [place] % (Auto) Lymph # [place] # Baso # Seg Neutrophils % Seg Neuts % (Manual) Lymphocytes % (Manual) Monocytes % (Manual) Eosinophils % (Manual) Basophils % (Manual) Nucleated RBC % Seg Neutrophils # Seg Neutrophils # Man Lymphocytes # (Manual) Monocytes # (Manual) Eosinophils # (Manual) Basophils # (Manual) PT INR Fibrinogen dRVVT Confirm Interp Factor V Activity POC ABG pH 7.499 H POC ABG pCO2 30.9 L POC ABG pO2 51 L ABG pO2 ABG HCO3 ABG Base Excess ABG Hemoglobin Oxyhemoglobin Sodium Potassium Chloride Carbon Dioxide BUN Creatinine Glucose POC Glucose 118 H 133 H Lactic Acid Calcium Ionized Calcium Phosphorus Magnesium Direct Bilirubin AST ALT Alkaline Phosphatase Lactate Dehydrogenase Troponin T C-Reactive Protein Total Protein Albumin Prealbumin Triglycerides Cholesterol LDL Cholesterol Direct HDL Cholesterol 25-OH Vitamin D Total PTH Intact Urine pH Urine WBC (Auto) Urine Creatinine Urine Total Protein Fluid Total Protein Vancomycin Trough Rheumatoid Factor Complement C4 Miscellaneous Test Crossmatch 01/16/17 01/16/17 01/16/17 17:52 23:57 Unknown WBC RBC Hgb Hct MCV MCH MCHC RDW Plt Count Lymph % (Auto) [place] % (Auto) Lymph # [place] # Baso # Seg Neutrophils % Seg Neuts % (Manual) Lymphocytes % (Manual) Monocytes % (Manual) Eosinophils % (Manual) Basophils % (Manual) Nucleated RBC % Seg Neutrophils # Seg Neutrophils # Man Lymphocytes # (Manual) Monocytes # (Manual) Eosinophils # (Manual) Basophils # (Manual) PT INR Fibrinogen dRVVT Confirm Interp Factor V Activity POC ABG pH POC ABG pCO2 POC ABG pO2 ABG pO2 ABG HCO3 ABG Base Excess ABG Hemoglobin Oxyhemoglobin Sodium 135 L Potassium Chloride Carbon Dioxide BUN 101 H Creatinine 1.8 H Glucose 117 H POC Glucose 130 H 143 H Lactic Acid Calcium Ionized Calcium Phosphorus 5.80 H Magnesium Direct Bilirubin AST ALT Alkaline Phosphatase Lactate Dehydrogenase Troponin T C-Reactive Protein Total Protein Albumin Prealbumin Triglycerides Cholesterol LDL Cholesterol Direct HDL Cholesterol 25-OH Vitamin D Total PTH Intact Urine pH Urine WBC (Auto) Urine Creatinine Urine Total Protein Fluid Total Protein Vancomycin Trough Rheumatoid Factor Complement C4 Miscellaneous Test Crossmatch 01/17/17 01/17/17 01/17/17 05:30 05:46 11:49 WBC RBC Hgb Hct MCV MCH MCHC RDW Plt Count Lymph % (Auto) [place] % (Auto) Lymph # [place] # Baso # Seg Neutrophils % Seg Neuts % (Manual) Lymphocytes % (Manual) Monocytes % (Manual) Eosinophils % (Manual) Basophils % (Manual) Nucleated RBC % Seg Neutrophils # Seg Neutrophils # Man Lymphocytes # (Manual) Monocytes # (Manual) Eosinophils # (Manual) Basophils # (Manual) PT INR Fibrinogen dRVVT Confirm Interp Factor V Activity POC ABG pH POC ABG pCO2 POC ABG pO2 ABG pO2 ABG HCO3 ABG Base Excess ABG Hemoglobin Oxyhemoglobin Sodium 134 L Potassium Chloride 95.8 L Carbon Dioxide BUN 66 H Creatinine 1.3 H Glucose 138 H POC Glucose 147 H 124 H Lactic Acid Calcium Ionized Calcium Phosphorus Magnesium Direct Bilirubin AST ALT Alkaline Phosphatase 254 H Lactate Dehydrogenase Troponin T C-Reactive Protein Total Protein Albumin 1.3 L Prealbumin Triglycerides Cholesterol LDL Cholesterol Direct HDL Cholesterol 25-OH Vitamin D Total PTH Intact Urine pH Urine WBC (Auto) Urine Creatinine Urine Total Protein Fluid Total Protein Vancomycin Trough Rheumatoid Factor Complement C4 Miscellaneous Test Crossmatch 01/17/17 01/17/17 01/18/17 17:30 23:41 05:15 WBC RBC Hgb Hct MCV MCH MCHC RDW Plt Count Lymph % (Auto) [place] % (Auto) Lymph # [place] # Baso # Seg Neutrophils % Seg Neuts % (Manual) Lymphocytes % (Manual) Monocytes % (Manual) Eosinophils % (Manual) Basophils % (Manual) Nucleated RBC % Seg Neutrophils # Seg Neutrophils # Man Lymphocytes # (Manual) Monocytes # (Manual) Eosinophils # (Manual) Basophils # (Manual) PT INR Fibrinogen dRVVT Confirm Interp Factor V Activity POC ABG pH POC ABG pCO2 POC ABG pO2 ABG pO2 ABG HCO3 ABG Base Excess ABG Hemoglobin Oxyhemoglobin Sodium Potassium Chloride Carbon Dioxide BUN 89 H Creatinine 1.7 H Glucose 118 H POC Glucose 137 H 119 H Lactic Acid Calcium Ionized Calcium Phosphorus Magnesium Direct Bilirubin AST ALT Alkaline Phosphatase Lactate Dehydrogenase Troponin T C-Reactive Protein Total Protein Albumin Prealbumin Triglycerides Cholesterol LDL Cholesterol Direct HDL Cholesterol 25-OH Vitamin D Total PTH Intact Urine pH Urine WBC (Auto) Urine Creatinine Urine Total Protein Fluid Total Protein Vancomycin Trough Rheumatoid Factor Complement C4 Miscellaneous Test Crossmatch 01/18/17 01/18/17 01/18/17 05:19 12:16 18:11 WBC RBC Hgb Hct MCV MCH MCHC RDW Plt Count Lymph % (Auto) [place] % (Auto) Lymph # [place] # Baso # Seg Neutrophils % Seg Neuts % (Manual) Lymphocytes % (Manual) Monocytes % (Manual) Eosinophils % (Manual) Basophils % (Manual) Nucleated RBC % Seg Neutrophils # Seg Neutrophils # Man Lymphocytes # (Manual) Monocytes # (Manual) Eosinophils # (Manual) Basophils # (Manual) PT INR Fibrinogen dRVVT Confirm Interp Factor V Activity POC ABG pH POC ABG pCO2 POC ABG pO2 ABG pO2 ABG HCO3 ABG Base Excess ABG Hemoglobin Oxyhemoglobin Sodium Potassium Chloride Carbon Dioxide BUN Creatinine Glucose POC Glucose 134 H 188 H 113 H Lactic Acid Calcium Ionized Calcium Phosphorus Magnesium Direct Bilirubin AST ALT Alkaline Phosphatase Lactate Dehydrogenase Troponin T C-Reactive Protein Total Protein Albumin Prealbumin Triglycerides Cholesterol LDL Cholesterol Direct HDL Cholesterol 25-OH Vitamin D Total PTH Intact Urine pH Urine WBC (Auto) Urine Creatinine Urine Total Protein Fluid Total Protein Vancomycin Trough Rheumatoid Factor Complement C4 Miscellaneous Test Crossmatch 01/19/17 01/19/17 01/19/17 00:00 05:30 05:36 WBC RBC Hgb Hct MCV MCH MCHC RDW Plt Count Lymph % (Auto) [place] % (Auto) Lymph # [place] # Baso # Seg Neutrophils % Seg Neuts % (Manual) Lymphocytes % (Manual) Monocytes % (Manual) Eosinophils % (Manual) Basophils % (Manual) Nucleated RBC % Seg Neutrophils # Seg Neutrophils # Man Lymphocytes # (Manual) Monocytes # (Manual) Eosinophils # (Manual) Basophils # (Manual) PT INR Fibrinogen dRVVT Confirm Interp Factor V Activity POC ABG pH POC ABG pCO2 POC ABG pO2 ABG pO2 ABG HCO3 ABG Base Excess ABG Hemoglobin Oxyhemoglobin Sodium Potassium Chloride Carbon Dioxide BUN 70 H Creatinine 1.5 H Glucose 121 H POC Glucose 137 H 155 H Lactic Acid Calcium Ionized Calcium Phosphorus 2.10 L D Magnesium Direct Bilirubin AST ALT Alkaline Phosphatase Lactate Dehydrogenase Troponin T C-Reactive Protein Total Protein Albumin Prealbumin Triglycerides Cholesterol LDL Cholesterol Direct HDL Cholesterol 25-OH Vitamin D Total PTH Intact Urine pH Urine WBC (Auto) Urine Creatinine Urine Total Protein Fluid Total Protein Vancomycin Trough Rheumatoid Factor Complement C4 Miscellaneous Test Crossmatch 01/19/17 01/19/17 01/19/17 11:59 15:32 17:57 WBC RBC Hgb Hct MCV MCH MCHC RDW Plt Count Lymph % (Auto) [place] % (Auto) Lymph # [place] # Baso # Seg Neutrophils % Seg Neuts % (Manual) Lymphocytes % (Manual) Monocytes % (Manual) Eosinophils % (Manual) Basophils % (Manual) Nucleated RBC % Seg Neutrophils # Seg Neutrophils # Man Lymphocytes # (Manual) Monocytes # (Manual) Eosinophils # (Manual) Basophils # (Manual) PT INR Fibrinogen dRVVT Confirm Interp Factor V Activity POC ABG pH POC ABG pCO2 33.1 L POC ABG pO2 76 L ABG pO2 ABG HCO3 ABG Base Excess ABG Hemoglobin Oxyhemoglobin Sodium Potassium Chloride Carbon Dioxide BUN Creatinine Glucose POC Glucose 156 H 129 H Lactic Acid Calcium Ionized Calcium Phosphorus Magnesium Direct Bilirubin AST ALT Alkaline Phosphatase Lactate Dehydrogenase Troponin T C-Reactive Protein Total Protein Albumin Prealbumin Triglycerides Cholesterol LDL Cholesterol Direct HDL Cholesterol 25-OH Vitamin D Total PTH Intact Urine pH Urine WBC (Auto) Urine Creatinine Urine Total Protein Fluid Total Protein Vancomycin Trough Rheumatoid Factor Complement C4 Miscellaneous Test Crossmatch 01/19/17 01/20/17 01/20/17 23:49 04:00 05:21 WBC RBC Hgb Hct MCV MCH MCHC RDW Plt Count Lymph % (Auto) [place] % (Auto) Lymph # [place] # Baso # Seg Neutrophils % Seg Neuts % (Manual) Lymphocytes % (Manual) Monocytes % (Manual) Eosinophils % (Manual) Basophils % (Manual) Nucleated RBC % Seg Neutrophils # Seg Neutrophils # Man Lymphocytes # (Manual) Monocytes # (Manual) Eosinophils # (Manual) Basophils # (Manual) PT INR Fibrinogen dRVVT Confirm Interp Factor V Activity POC ABG pH POC ABG pCO2 POC ABG pO2 ABG pO2 ABG HCO3 ABG Base Excess ABG Hemoglobin Oxyhemoglobin Sodium Potassium Chloride Carbon Dioxide BUN 96 H Creatinine 1.9 H Glucose 106 H POC Glucose 125 H 130 H Lactic Acid Calcium Ionized Calcium Phosphorus 2.40 L Magnesium Direct Bilirubin AST ALT Alkaline Phosphatase Lactate Dehydrogenase Troponin T C-Reactive Protein Total Protein Albumin Prealbumin Triglycerides Cholesterol LDL Cholesterol Direct HDL Cholesterol 25-OH Vitamin D Total PTH Intact Urine pH Urine WBC (Auto) Urine Creatinine Urine Total Protein Fluid Total Protein Vancomycin Trough Rheumatoid Factor Complement C4 Miscellaneous Test Crossmatch 01/20/17 01/20/17 01/20/17 11:58 12:17 17:26 WBC RBC Hgb Hct MCV MCH MCHC RDW Plt Count Lymph % (Auto) [place] % (Auto) Lymph # [place] # Baso # Seg Neutrophils % Seg Neuts % (Manual) Lymphocytes % (Manual) Monocytes % (Manual) Eosinophils % (Manual) Basophils % (Manual) Nucleated RBC % Seg Neutrophils # Seg Neutrophils # Man Lymphocytes # (Manual) Monocytes # (Manual) Eosinophils # (Manual) Basophils # (Manual) PT INR Fibrinogen dRVVT Confirm Interp Factor V Activity POC ABG pH POC ABG pCO2 POC ABG pO2 70 L ABG pO2 ABG HCO3 ABG Base Excess ABG Hemoglobin Oxyhemoglobin Sodium Potassium Chloride Carbon Dioxide BUN Creatinine Glucose POC Glucose 118 H 154 H Lactic Acid Calcium Ionized Calcium Phosphorus Magnesium Direct Bilirubin AST ALT Alkaline Phosphatase Lactate Dehydrogenase Troponin T C-Reactive Protein Total Protein Albumin Prealbumin Triglycerides Cholesterol LDL Cholesterol Direct HDL Cholesterol 25-OH Vitamin D Total PTH Intact Urine pH Urine WBC (Auto) Urine Creatinine Urine Total Protein Fluid Total Protein Vancomycin Trough Rheumatoid Factor Complement C4 Miscellaneous Test Crossmatch 01/21/17 01/21/17 01/21/17 04:00 04:56 11:46 WBC RBC Hgb Hct MCV MCH MCHC RDW Plt Count Lymph % (Auto) [place] % (Auto) Lymph # [place] # Baso # Seg Neutrophils % Seg Neuts % (Manual) Lymphocytes % (Manual) Monocytes % (Manual) Eosinophils % (Manual) Basophils % (Manual) Nucleated RBC % Seg Neutrophils # Seg Neutrophils # Man Lymphocytes # (Manual) Monocytes # (Manual) Eosinophils # (Manual) Basophils # (Manual) PT INR Fibrinogen dRVVT Confirm Interp Factor V Activity POC ABG pH POC ABG pCO2 POC ABG pO2 ABG pO2 ABG HCO3 ABG Base Excess ABG Hemoglobin Oxyhemoglobin Sodium Potassium 3.5 L Chloride 97.4 L Carbon Dioxide BUN 66 H Creatinine 1.4 H Glucose POC Glucose 116 H 106 H Lactic Acid Calcium Ionized Calcium Phosphorus 2.10 L Magnesium Direct Bilirubin AST ALT Alkaline Phosphatase Lactate Dehydrogenase Troponin T C-Reactive Protein Total Protein Albumin Prealbumin Triglycerides Cholesterol LDL Cholesterol Direct HDL Cholesterol 25-OH Vitamin D Total PTH Intact Urine pH Urine WBC (Auto) Urine Creatinine Urine Total Protein Fluid Total Protein Vancomycin Trough Rheumatoid Factor Complement C4 Miscellaneous Test Crossmatch 01/21/17 01/21/17 01/22/17 17:25 23:49 05:35 WBC RBC Hgb Hct MCV MCH MCHC RDW Plt Count Lymph % (Auto) [place] % (Auto) Lymph # [place] # Baso # Seg Neutrophils % Seg Neuts % (Manual) Lymphocytes % (Manual) Monocytes % (Manual) Eosinophils % (Manual) Basophils % (Manual) Nucleated RBC % Seg Neutrophils # Seg Neutrophils # Man Lymphocytes # (Manual) Monocytes # (Manual) Eosinophils # (Manual) Basophils # (Manual) PT INR Fibrinogen dRVVT Confirm Interp Factor V Activity POC ABG pH POC ABG pCO2 POC ABG pO2 ABG pO2 ABG HCO3 ABG Base Excess ABG Hemoglobin Oxyhemoglobin Sodium Potassium Chloride Carbon Dioxide BUN Creatinine Glucose POC Glucose 106 H 133 H 107 H Lactic Acid Calcium Ionized Calcium Phosphorus Magnesium Direct Bilirubin AST ALT Alkaline Phosphatase Lactate Dehydrogenase Troponin T C-Reactive Protein Total Protein Albumin Prealbumin Triglycerides Cholesterol LDL Cholesterol Direct HDL Cholesterol 25-OH Vitamin D Total PTH Intact Urine pH Urine WBC (Auto) Urine Creatinine Urine Total Protein Fluid Total Protein Vancomycin Trough Rheumatoid Factor Complement C4 Miscellaneous Test Crossmatch 01/22/17 01/22/17 01/22/17 07:20 07:20 11:31 WBC RBC 2.75 L Hgb 7.5 L Hct 22.7 L MCV MCH 27 L MCHC RDW 17.5 H Plt Count Lymph % (Auto) [place] % (Auto) Lymph # [place] # Baso # Seg Neutrophils % Seg Neuts % (Manual) Lymphocytes % (Manual) Monocytes % (Manual) Eosinophils % (Manual) Basophils % (Manual) Nucleated RBC % Seg Neutrophils # Seg Neutrophils # Man Lymphocytes # (Manual) Monocytes # (Manual) Eosinophils # (Manual) Basophils # (Manual) PT INR Fibrinogen dRVVT Confirm Interp Factor V Activity POC ABG pH POC ABG pCO2 POC ABG pO2 ABG pO2 ABG HCO3 ABG Base Excess ABG Hemoglobin Oxyhemoglobin Sodium Potassium 3.3 L Chloride Carbon Dioxide BUN 42 H Creatinine Glucose 105 H POC Glucose 124 H Lactic Acid Calcium Ionized Calcium Phosphorus 1.70 L Magnesium Direct Bilirubin AST ALT Alkaline Phosphatase Lactate Dehydrogenase Troponin T C-Reactive Protein Total Protein Albumin Prealbumin Triglycerides Cholesterol LDL Cholesterol Direct HDL Cholesterol 25-OH Vitamin D Total PTH Intact Urine pH Urine WBC (Auto) Urine Creatinine Urine Total Protein Fluid Total Protein Vancomycin Trough Rheumatoid Factor Complement C4 Miscellaneous Test Crossmatch 01/22/17 01/22/17 01/23/17 17:16 23:35 05:35 WBC RBC Hgb Hct MCV MCH MCHC RDW Plt Count Lymph % (Auto) [place] % (Auto) Lymph # [place] # Baso # Seg Neutrophils % Seg Neuts % (Manual) Lymphocytes % (Manual) Monocytes % (Manual) Eosinophils % (Manual) Basophils % (Manual) Nucleated RBC % Seg Neutrophils # Seg Neutrophils # Man Lymphocytes # (Manual) Monocytes # (Manual) Eosinophils # (Manual) Basophils # (Manual) PT INR Fibrinogen dRVVT Confirm Interp Factor V Activity POC ABG pH POC ABG pCO2 POC ABG pO2 ABG pO2 ABG HCO3 ABG Base Excess ABG Hemoglobin Oxyhemoglobin Sodium Potassium Chloride Carbon Dioxide BUN Creatinine Glucose POC Glucose 135 H 120 H 111 H Lactic Acid Calcium Ionized Calcium Phosphorus Magnesium Direct Bilirubin AST ALT Alkaline Phosphatase Lactate Dehydrogenase Troponin T C-Reactive Protein Total Protein Albumin Prealbumin Triglycerides Cholesterol LDL Cholesterol Direct HDL Cholesterol 25-OH Vitamin D Total PTH Intact Urine pH Urine WBC (Auto) Urine Creatinine Urine Total Protein Fluid Total Protein Vancomycin Trough Rheumatoid Factor Complement C4 Miscellaneous Test Crossmatch 01/23/17 01/23/17 01/23/17 06:10 17:27 23:44 WBC RBC Hgb Hct MCV MCH MCHC RDW Plt Count Lymph % (Auto) [place] % (Auto) Lymph # [place] # Baso # Seg Neutrophils % Seg Neuts % (Manual) Lymphocytes % (Manual) Monocytes % (Manual) Eosinophils % (Manual) Basophils % (Manual) Nucleated RBC % Seg Neutrophils # Seg Neutrophils # Man Lymphocytes # (Manual) Monocytes # (Manual) Eosinophils # (Manual) Basophils # (Manual) PT INR Fibrinogen dRVVT Confirm Interp Factor V Activity POC ABG pH POC ABG pCO2 POC ABG pO2 ABG pO2 ABG HCO3 ABG Base Excess ABG Hemoglobin Oxyhemoglobin Sodium Potassium 3.3 L Chloride Carbon Dioxide BUN 66 H Creatinine 1.3 H Glucose 109 H POC Glucose 120 H 115 H Lactic Acid Calcium Ionized Calcium Phosphorus 2.20 L D Magnesium Direct Bilirubin AST ALT Alkaline Phosphatase Lactate Dehydrogenase Troponin T C-Reactive Protein Total Protein Albumin Prealbumin Triglycerides Cholesterol LDL Cholesterol Direct HDL Cholesterol 25-OH Vitamin D Total PTH Intact Urine pH Urine WBC (Auto) Urine Creatinine Urine Total Protein Fluid Total Protein Vancomycin Trough Rheumatoid Factor Complement C4 Miscellaneous Test Crossmatch 01/24/17 01/24/17 01/24/17 05:19 05:50 12:19 WBC RBC Hgb Hct MCV MCH MCHC RDW Plt Count Lymph % (Auto) [place] % (Auto) Lymph # [place] # Baso # Seg Neutrophils % Seg Neuts % (Manual) Lymphocytes % (Manual) Monocytes % (Manual) Eosinophils % (Manual) Basophils % (Manual) Nucleated RBC % Seg Neutrophils # Seg Neutrophils # Man Lymphocytes # (Manual) Monocytes # (Manual) Eosinophils # (Manual) Basophils # (Manual) PT INR Fibrinogen dRVVT Confirm Interp Factor V Activity POC ABG pH POC ABG pCO2 POC ABG pO2 ABG pO2 ABG HCO3 ABG Base Excess ABG Hemoglobin Oxyhemoglobin Sodium Potassium Chloride Carbon Dioxide BUN 47 H Creatinine Glucose 117 H POC Glucose 126 H 119 H Lactic Acid Calcium Ionized Calcium Phosphorus 2.30 L Magnesium 1.60 L Direct Bilirubin AST ALT Alkaline Phosphatase Lactate Dehydrogenase Troponin T C-Reactive Protein Total Protein Albumin Prealbumin Triglycerides Cholesterol LDL Cholesterol Direct HDL Cholesterol 25-OH Vitamin D Total PTH Intact Urine pH Urine WBC (Auto) Urine Creatinine Urine Total Protein Fluid Total Protein Vancomycin Trough Rheumatoid Factor Complement C4 Miscellaneous Test Crossmatch 01/24/17 01/25/17 01/25/17 17:08 00:37 04:00 WBC RBC Hgb Hct MCV MCH MCHC RDW Plt Count Lymph % (Auto) [place] % (Auto) Lymph # [place] # Baso # Seg Neutrophils % Seg Neuts % (Manual) Lymphocytes % (Manual) Monocytes % (Manual) Eosinophils % (Manual) Basophils % (Manual) Nucleated RBC % Seg Neutrophils # Seg Neutrophils # Man Lymphocytes # (Manual) Monocytes # (Manual) Eosinophils # (Manual) Basophils # (Manual) PT INR Fibrinogen dRVVT Confirm Interp Factor V Activity POC ABG pH POC ABG pCO2 POC ABG pO2 ABG pO2 ABG HCO3 ABG Base Excess ABG Hemoglobin Oxyhemoglobin Sodium Potassium Chloride Carbon Dioxide BUN 72 H Creatinine 1.3 H Glucose POC Glucose 127 H 110 H Lactic Acid Calcium Ionized Calcium Phosphorus Magnesium Direct Bilirubin AST ALT Alkaline Phosphatase Lactate Dehydrogenase Troponin T C-Reactive Protein Total Protein Albumin Prealbumin Triglycerides Cholesterol LDL Cholesterol Direct HDL Cholesterol 25-OH Vitamin D Total PTH Intact Urine pH Urine WBC (Auto) Urine Creatinine Urine Total Protein Fluid Total Protein Vancomycin Trough Rheumatoid Factor Complement C4 Miscellaneous Test Crossmatch 01/25/17 01/25/17 01/25/17 04:00 11:15 13:05 WBC RBC 2.49 L Hgb 6.7 L Hct 20.9 L MCV MCH 27 L MCHC RDW 18.8 H Plt Count Lymph % (Auto) [place] % (Auto) 10.1 H Lymph # [place] # 1.0 H Baso # Seg Neutrophils % Seg Neuts % (Manual) Lymphocytes % (Manual) Monocytes % (Manual) Eosinophils % (Manual) Basophils % (Manual) Nucleated RBC % Seg Neutrophils # Seg Neutrophils # Man Lymphocytes # (Manual) Monocytes # (Manual) Eosinophils # (Manual) Basophils # (Manual) PT INR Fibrinogen dRVVT Confirm Interp Factor V Activity POC ABG pH POC ABG pCO2 POC ABG pO2 ABG pO2 ABG HCO3 ABG Base Excess ABG Hemoglobin Oxyhemoglobin Sodium Potassium Chloride Carbon Dioxide BUN Creatinine Glucose POC Glucose 128 H Lactic Acid Calcium Ionized Calcium Phosphorus Magnesium Direct Bilirubin AST ALT Alkaline Phosphatase Lactate Dehydrogenase Troponin T C-Reactive Protein Total Protein Albumin Prealbumin Triglycerides Cholesterol LDL Cholesterol Direct HDL Cholesterol 25-OH Vitamin D Total PTH Intact Urine pH Urine WBC (Auto) Urine Creatinine Urine Total Protein Fluid Total Protein Vancomycin Trough Rheumatoid Factor Complement C4 Miscellaneous Test Crossmatch See Detail 01/25/17 01/25/17 01/26/17 18:02 23:07 01:20 WBC RBC Hgb Hct MCV MCH MCHC RDW Plt Count Lymph % (Auto) [place] % (Auto) Lymph # [place] # Baso # Seg Neutrophils % Seg Neuts % (Manual) Lymphocytes % (Manual) Monocytes % (Manual) Eosinophils % (Manual) Basophils % (Manual) Nucleated RBC % Seg Neutrophils # Seg Neutrophils # Man Lymphocytes # (Manual) Monocytes # (Manual) Eosinophils # (Manual) Basophils # (Manual) PT INR Fibrinogen dRVVT Confirm Interp Factor V Activity POC ABG pH POC ABG pCO2 POC ABG pO2 ABG pO2 ABG HCO3 ABG Base Excess ABG Hemoglobin Oxyhemoglobin Sodium Potassium Chloride Carbon Dioxide BUN Creatinine Glucose POC Glucose 120 H 123 H 112 H Lactic Acid Calcium Ionized Calcium Phosphorus Magnesium Direct Bilirubin AST ALT Alkaline Phosphatase Lactate Dehydrogenase Troponin T C-Reactive Protein Total Protein Albumin Prealbumin Triglycerides Cholesterol LDL Cholesterol Direct HDL Cholesterol 25-OH Vitamin D Total PTH Intact Urine pH Urine WBC (Auto) Urine Creatinine Urine Total Protein Fluid Total Protein Vancomycin Trough Rheumatoid Factor Complement C4 Miscellaneous Test Crossmatch 01/26/17 01/26/17 01/26/17 04:20 04:20 11:23 WBC 13.1 H RBC 3.28 L Hgb 9.0 L Hct 26.9 L D MCV MCH 27 L MCHC RDW 17.2 H Plt Count Lymph % (Auto) [place] % (Auto) 9.0 H Lymph # [place] # 1.2 H Baso # Seg Neutrophils % 73.1 H Seg Neuts % (Manual) Lymphocytes % (Manual) Monocytes % (Manual) Eosinophils % (Manual) Basophils % (Manual) Nucleated RBC % Seg Neutrophils # 9.6 H Seg Neutrophils # Man Lymphocytes # (Manual) Monocytes # (Manual) Eosinophils # (Manual) Basophils # (Manual) PT INR Fibrinogen dRVVT Confirm Interp Factor V Activity POC ABG pH POC ABG pCO2 POC ABG pO2 ABG pO2 ABG HCO3 ABG Base Excess ABG Hemoglobin Oxyhemoglobin Sodium Potassium Chloride Carbon Dioxide BUN 51 H Creatinine Glucose 117 H POC Glucose 125 H Lactic Acid Calcium Ionized Calcium Phosphorus Magnesium Direct Bilirubin AST ALT Alkaline Phosphatase Lactate Dehydrogenase Troponin T C-Reactive Protein Total Protein Albumin Prealbumin Triglycerides Cholesterol LDL Cholesterol Direct HDL Cholesterol 25-OH Vitamin D Total PTH Intact Urine pH Urine WBC (Auto) Urine Creatinine Urine Total Protein Fluid Total Protein Vancomycin Trough Rheumatoid Factor Complement C4 Miscellaneous Test Crossmatch 01/26/17 01/27/17 01/27/17 17:11 00:30 04:00 WBC RBC Hgb Hct MCV MCH MCHC RDW Plt Count Lymph % (Auto) [place] % (Auto) Lymph # [place] # Baso # Seg Neutrophils % Seg Neuts % (Manual) Lymphocytes % (Manual) Monocytes % (Manual) Eosinophils % (Manual) Basophils % (Manual) Nucleated RBC % Seg Neutrophils # Seg Neutrophils # Man Lymphocytes # (Manual) Monocytes # (Manual) Eosinophils # (Manual) Basophils # (Manual) PT INR Fibrinogen dRVVT Confirm Interp Factor V Activity POC ABG pH POC ABG pCO2 POC ABG pO2 ABG pO2 ABG HCO3 ABG Base Excess ABG Hemoglobin Oxyhemoglobin Sodium Potassium Chloride 97.7 L Carbon Dioxide 21 L BUN 79 H Creatinine 1.7 H D Glucose 112 H POC Glucose 133 H 135 H Lactic Acid Calcium Ionized Calcium Phosphorus 5.00 H D Magnesium Direct Bilirubin AST ALT Alkaline Phosphatase Lactate Dehydrogenase Troponin T C-Reactive Protein Total Protein Albumin Prealbumin Triglycerides Cholesterol LDL Cholesterol Direct HDL Cholesterol 25-OH Vitamin D Total PTH Intact Urine pH Urine WBC (Auto) Urine Creatinine Urine Total Protein Fluid Total Protein Vancomycin Trough Rheumatoid Factor Complement C4 Miscellaneous Test Crossmatch 01/27/17 01/27/17 01/27/17 05:12 12:18 17:25 WBC RBC Hgb Hct MCV MCH MCHC RDW Plt Count Lymph % (Auto) [place] % (Auto) Lymph # [place] # Baso # Seg Neutrophils % Seg Neuts % (Manual) Lymphocytes % (Manual) Monocytes % (Manual) Eosinophils % (Manual) Basophils % (Manual) Nucleated RBC % Seg Neutrophils # Seg Neutrophils # Man Lymphocytes # (Manual) Monocytes # (Manual) Eosinophils # (Manual) Basophils # (Manual) PT INR Fibrinogen dRVVT Confirm Interp Factor V Activity POC ABG pH POC ABG pCO2 POC ABG pO2 ABG pO2 ABG HCO3 ABG Base Excess ABG Hemoglobin Oxyhemoglobin Sodium Potassium Chloride Carbon Dioxide BUN Creatinine Glucose POC Glucose 116 H 153 H 152 H Lactic Acid Calcium Ionized Calcium Phosphorus Magnesium Direct Bilirubin AST ALT Alkaline Phosphatase Lactate Dehydrogenase Troponin T C-Reactive Protein Total Protein Albumin Prealbumin Triglycerides Cholesterol LDL Cholesterol Direct HDL Cholesterol 25-OH Vitamin D Total PTH Intact Urine pH Urine WBC (Auto) Urine Creatinine Urine Total Protein Fluid Total Protein Vancomycin Trough Rheumatoid Factor Complement C4 Miscellaneous Test Crossmatch 01/27/17 01/28/17 01/28/17 23:42 04:00 04:00 WBC 14.4 H RBC 2.82 L Hgb 7.4 L Hct 23.5 L MCV MCH 26 L MCHC RDW 17.6 H Plt Count Lymph % (Auto) 10.2 L [place] % (Auto) 11.0 H Lymph # [place] # 1.6 H Baso # Seg Neutrophils % 78.0 H Seg Neuts % (Manual) Lymphocytes % (Manual) Monocytes % (Manual) Eosinophils % (Manual) Basophils % (Manual) Nucleated RBC % Seg Neutrophils # 11.3 H Seg Neutrophils # Man Lymphocytes # (Manual) Monocytes # (Manual) Eosinophils # (Manual) Basophils # (Manual) PT INR Fibrinogen dRVVT Confirm Interp Factor V Activity POC ABG pH POC ABG pCO2 POC ABG pO2 ABG pO2 ABG HCO3 ABG Base Excess ABG Hemoglobin Oxyhemoglobin Sodium Potassium Chloride Carbon Dioxide BUN 55 H Creatinine 1.3 H Glucose 114 H POC Glucose 121 H Lactic Acid Calcium Ionized Calcium Phosphorus Magnesium Direct Bilirubin AST ALT Alkaline Phosphatase Lactate Dehydrogenase Troponin T C-Reactive Protein Total Protein Albumin 1.4 L Prealbumin Triglycerides Cholesterol LDL Cholesterol Direct HDL Cholesterol 25-OH Vitamin D Total PTH Intact Urine pH Urine WBC (Auto) Urine Creatinine Urine Total Protein Fluid Total Protein Vancomycin Trough Rheumatoid Factor Complement C4 Miscellaneous Test Crossmatch 01/28/17 01/28/17 01/29/17 04:59 12:30 00:02 WBC RBC Hgb Hct MCV MCH MCHC RDW Plt Count Lymph % (Auto) [place] % (Auto) Lymph # [place] # Baso # Seg Neutrophils % Seg Neuts % (Manual) Lymphocytes % (Manual) Monocytes % (Manual) Eosinophils % (Manual) Basophils % (Manual) Nucleated RBC % Seg Neutrophils # Seg Neutrophils # Man Lymphocytes # (Manual) Monocytes # (Manual) Eosinophils # (Manual) Basophils # (Manual) PT INR Fibrinogen dRVVT Confirm Interp Factor V Activity POC ABG pH POC ABG pCO2 POC ABG pO2 ABG pO2 ABG HCO3 ABG Base Excess ABG Hemoglobin Oxyhemoglobin Sodium Potassium Chloride Carbon Dioxide BUN Creatinine Glucose POC Glucose 126 H 119 H 138 H Lactic Acid Calcium Ionized Calcium Phosphorus Magnesium Direct Bilirubin AST ALT Alkaline Phosphatase Lactate Dehydrogenase Troponin T C-Reactive Protein Total Protein Albumin Prealbumin Triglycerides Cholesterol LDL Cholesterol Direct HDL Cholesterol 25-OH Vitamin D Total PTH Intact Urine pH Urine WBC (Auto) Urine Creatinine Urine Total Protein Fluid Total Protein Vancomycin Trough Rheumatoid Factor Complement C4 Miscellaneous Test Crossmatch 01/29/17 01/29/17 01/29/17 04:58 06:15 11:35 WBC RBC Hgb Hct MCV MCH MCHC RDW Plt Count Lymph % (Auto) [place] % (Auto) Lymph # [place] # Baso # Seg Neutrophils % Seg Neuts % (Manual) Lymphocytes % (Manual) Monocytes % (Manual) Eosinophils % (Manual) Basophils % (Manual) Nucleated RBC % Seg Neutrophils # Seg Neutrophils # Man Lymphocytes # (Manual) Monocytes # (Manual) Eosinophils # (Manual) Basophils # (Manual) PT INR Fibrinogen dRVVT Confirm Interp Factor V Activity POC ABG pH POC ABG pCO2 POC ABG pO2 ABG pO2 ABG HCO3 ABG Base Excess ABG Hemoglobin Oxyhemoglobin Sodium Potassium Chloride Carbon Dioxide BUN 85 H Creatinine 1.7 H Glucose 105 H POC Glucose 114 H 110 H Lactic Acid Calcium Ionized Calcium Phosphorus Magnesium 2.40 H Direct Bilirubin AST ALT Alkaline Phosphatase Lactate Dehydrogenase Troponin T C-Reactive Protein Total Protein Albumin Prealbumin Triglycerides Cholesterol LDL Cholesterol Direct HDL Cholesterol 25-OH Vitamin D Total PTH Intact Urine pH Urine WBC (Auto) Urine Creatinine Urine Total Protein Fluid Total Protein Vancomycin Trough Rheumatoid Factor Complement C4 Miscellaneous Test Crossmatch 01/29/17 01/29/17 01/30/17 18:24 23:41 05:12 WBC RBC Hgb Hct MCV MCH MCHC RDW Plt Count Lymph % (Auto) [place] % (Auto) Lymph # [place] # Baso # Seg Neutrophils % Seg Neuts % (Manual) Lymphocytes % (Manual) Monocytes % (Manual) Eosinophils % (Manual) Basophils % (Manual) Nucleated RBC % Seg Neutrophils # Seg Neutrophils # Man Lymphocytes # (Manual) Monocytes # (Manual) Eosinophils # (Manual) Basophils # (Manual) PT INR Fibrinogen dRVVT Confirm Interp Factor V Activity POC ABG pH POC ABG pCO2 POC ABG pO2 ABG pO2 ABG HCO3 ABG Base Excess ABG Hemoglobin Oxyhemoglobin Sodium Potassium Chloride Carbon Dioxide BUN Creatinine Glucose POC Glucose 109 H 134 H 109 H Lactic Acid Calcium Ionized Calcium Phosphorus Magnesium Direct Bilirubin AST ALT Alkaline Phosphatase Lactate Dehydrogenase Troponin T C-Reactive Protein Total Protein Albumin Prealbumin Triglycerides Cholesterol LDL Cholesterol Direct HDL Cholesterol 25-OH Vitamin D Total PTH Intact Urine pH Urine WBC (Auto) Urine Creatinine Urine Total Protein Fluid Total Protein Vancomycin Trough Rheumatoid Factor Complement C4 Miscellaneous Test Crossmatch 01/30/17 01/30/17 01/30/17 11:26 17:43 23:39 WBC RBC Hgb Hct MCV MCH MCHC RDW Plt Count Lymph % (Auto) [place] % (Auto) Lymph # [place] # Baso # Seg Neutrophils % Seg Neuts % (Manual) Lymphocytes % (Manual) Monocytes % (Manual) Eosinophils % (Manual) Basophils % (Manual) Nucleated RBC % Seg Neutrophils # Seg Neutrophils # Man Lymphocytes # (Manual) Monocytes # (Manual) Eosinophils # (Manual) Basophils # (Manual) PT INR Fibrinogen dRVVT Confirm Interp Factor V Activity POC ABG pH POC ABG pCO2 POC ABG pO2 ABG pO2 ABG HCO3 ABG Base Excess ABG Hemoglobin Oxyhemoglobin Sodium Potassium Chloride Carbon Dioxide BUN Creatinine Glucose POC Glucose 135 H 143 H 122 H Lactic Acid Calcium Ionized Calcium Phosphorus Magnesium Direct Bilirubin AST ALT Alkaline Phosphatase Lactate Dehydrogenase Troponin T C-Reactive Protein Total Protein Albumin Prealbumin Triglycerides Cholesterol LDL Cholesterol Direct HDL Cholesterol 25-OH Vitamin D Total PTH Intact Urine pH Urine WBC (Auto) Urine Creatinine Urine Total Protein Fluid Total Protein Vancomycin Trough Rheumatoid Factor Complement C4 Miscellaneous Test Crossmatch 01/31/17 01/31/17 01/31/17 04:00 05:40 11:12 WBC RBC Hgb Hct MCV MCH MCHC RDW Plt Count Lymph % (Auto) [place] % (Auto) Lymph # [place] # Baso # Seg Neutrophils % Seg Neuts % (Manual) Lymphocytes % (Manual) Monocytes % (Manual) Eosinophils % (Manual) Basophils % (Manual) Nucleated RBC % Seg Neutrophils # Seg Neutrophils # Man Lymphocytes # (Manual) Monocytes # (Manual) Eosinophils # (Manual) Basophils # (Manual) PT INR Fibrinogen dRVVT Confirm Interp Factor V Activity POC ABG pH POC ABG pCO2 POC ABG pO2 ABG pO2 ABG HCO3 ABG Base Excess ABG Hemoglobin Oxyhemoglobin Sodium Potassium Chloride Carbon Dioxide BUN 78 H Creatinine 1.5 H Glucose 108 H POC Glucose 123 H Lactic Acid Calcium Ionized Calcium Phosphorus Magnesium Direct Bilirubin AST ALT Alkaline Phosphatase Lactate Dehydrogenase Troponin T C-Reactive Protein 8.10 H Total Protein Albumin Prealbumin Triglycerides Cholesterol LDL Cholesterol Direct HDL Cholesterol 25-OH Vitamin D Total PTH Intact Urine pH Urine WBC (Auto) Urine Creatinine Urine Total Protein Fluid Total Protein Vancomycin Trough Rheumatoid Factor Complement C4 Miscellaneous Test Crossmatch 01/31/17 01/31/17 01/31/17 11:16 17:45 17:50 WBC RBC Hgb Hct MCV MCH MCHC RDW Plt Count Lymph % (Auto) [place] % (Auto) Lymph # [place] # Baso # Seg Neutrophils % Seg Neuts % (Manual) Lymphocytes % (Manual) Monocytes % (Manual) Eosinophils % (Manual) Basophils % (Manual) Nucleated RBC % Seg Neutrophils # Seg Neutrophils # Man Lymphocytes # (Manual) Monocytes # (Manual) Eosinophils # (Manual) Basophils # (Manual) PT INR Fibrinogen dRVVT Confirm Interp Factor V Activity POC ABG pH POC ABG pCO2 POC ABG pO2 ABG pO2 ABG HCO3 ABG Base Excess ABG Hemoglobin Oxyhemoglobin Sodium Potassium Chloride Carbon Dioxide BUN Creatinine Glucose POC Glucose 119 H 111 H Lactic Acid Calcium Ionized Calcium Phosphorus Magnesium Direct Bilirubin AST ALT Alkaline Phosphatase Lactate Dehydrogenase Troponin T C-Reactive Protein Total Protein Albumin Prealbumin Triglycerides Cholesterol LDL Cholesterol Direct HDL Cholesterol 25-OH Vitamin D Total PTH Intact 6.76 L Urine pH Urine WBC (Auto) Urine Creatinine Urine Total Protein Fluid Total Protein Vancomycin Trough Rheumatoid Factor Complement C4 Miscellaneous Test Crossmatch 01/31/17 02/01/17 02/01/17 23:19 05:42 09:24 WBC RBC Hgb Hct MCV MCH MCHC RDW Plt Count Lymph % (Auto) [place] % (Auto) Lymph # [place] # Baso # Seg Neutrophils % Seg Neuts % (Manual) Lymphocytes % (Manual) Monocytes % (Manual) Eosinophils % (Manual) Basophils % (Manual) Nucleated RBC % Seg Neutrophils # Seg Neutrophils # Man Lymphocytes # (Manual) Monocytes # (Manual) Eosinophils # (Manual) Basophils # (Manual) PT INR Fibrinogen dRVVT Confirm Interp Factor V Activity POC ABG pH POC ABG pCO2 POC ABG pO2 ABG pO2 ABG HCO3 ABG Base Excess ABG Hemoglobin Oxyhemoglobin Sodium Potassium Chloride Carbon Dioxide BUN Creatinine Glucose POC Glucose 118 H 122 H Lactic Acid Calcium Ionized Calcium Phosphorus Magnesium 2.60 H Direct Bilirubin AST ALT Alkaline Phosphatase Lactate Dehydrogenase Troponin T C-Reactive Protein Total Protein Albumin Prealbumin Triglycerides Cholesterol LDL Cholesterol Direct HDL Cholesterol 25-OH Vitamin D Total PTH Intact Urine pH Urine WBC (Auto) Urine Creatinine Urine Total Protein Fluid Total Protein Vancomycin Trough Rheumatoid Factor Complement C4 Miscellaneous Test Crossmatch 02/01/17 02/01/17 02/02/17 09:24 12:15 07:40 WBC RBC Hgb Hct MCV MCH MCHC RDW Plt Count Lymph % (Auto) [place] % (Auto) Lymph # [place] # Baso # Seg Neutrophils % Seg Neuts % (Manual) Lymphocytes % (Manual) Monocytes % (Manual) Eosinophils % (Manual) Basophils % (Manual) Nucleated RBC % Seg Neutrophils # Seg Neutrophils # Man Lymphocytes # (Manual) Monocytes # (Manual) Eosinophils # (Manual) Basophils # (Manual) PT INR Fibrinogen dRVVT Confirm Interp Factor V Activity POC ABG pH POC ABG pCO2 POC ABG pO2 ABG pO2 ABG HCO3 ABG Base Excess ABG Hemoglobin Oxyhemoglobin Sodium Potassium Chloride Carbon Dioxide BUN 102 H 72 H Creatinine 1.9 H 1.5 H Glucose 120 H POC Glucose 156 H Lactic Acid Calcium Ionized Calcium Phosphorus Magnesium Direct Bilirubin AST ALT Alkaline Phosphatase Lactate Dehydrogenase Troponin T C-Reactive Protein Total Protein Albumin Prealbumin Triglycerides Cholesterol LDL Cholesterol Direct HDL Cholesterol 25-OH Vitamin D Total PTH Intact Urine pH Urine WBC (Auto) Urine Creatinine Urine Total Protein Fluid Total Protein Vancomycin Trough Rheumatoid Factor Complement C4 Miscellaneous Test Crossmatch 02/02/17 02/02/17 02/03/17 10:16 12:11 00:08 WBC 12.0 H RBC 3.08 L Hgb 8.3 L Hct 25.6 L MCV MCH 27 L MCHC RDW 18.2 H Plt Count Lymph % (Auto) [place] % (Auto) Lymph # [place] # Baso # Seg Neutrophils % 78.4 H Seg Neuts % (Manual) Lymphocytes % (Manual) Monocytes % (Manual) Eosinophils % (Manual) Basophils % (Manual) Nucleated RBC % Seg Neutrophils # 9.4 H Seg Neutrophils # Man Lymphocytes # (Manual) Monocytes # (Manual) Eosinophils # (Manual) Basophils # (Manual) PT INR Fibrinogen dRVVT Confirm Interp Factor V Activity POC ABG pH POC ABG pCO2 POC ABG pO2 ABG pO2 ABG HCO3 ABG Base Excess ABG Hemoglobin Oxyhemoglobin Sodium Potassium Chloride Carbon Dioxide BUN Creatinine Glucose POC Glucose 110 H 120 H Lactic Acid Calcium Ionized Calcium Phosphorus Magnesium Direct Bilirubin AST ALT Alkaline Phosphatase Lactate Dehydrogenase Troponin T C-Reactive Protein Total Protein Albumin Prealbumin Triglycerides Cholesterol LDL Cholesterol Direct HDL Cholesterol 25-OH Vitamin D Total PTH Intact Urine pH Urine WBC (Auto) Urine Creatinine Urine Total Protein Fluid Total Protein Vancomycin Trough Rheumatoid Factor Complement C4 Miscellaneous Test Crossmatch 02/03/17 02/03/17 02/03/17 05:41 07:38 11:31 WBC RBC Hgb Hct MCV MCH MCHC RDW Plt Count Lymph % (Auto) [place] % (Auto) Lymph # [place] # Baso # Seg Neutrophils % Seg Neuts % (Manual) Lymphocytes % (Manual) Monocytes % (Manual) Eosinophils % (Manual) Basophils % (Manual) Nucleated RBC % Seg Neutrophils # Seg Neutrophils # Man Lymphocytes # (Manual) Monocytes # (Manual) Eosinophils # (Manual) Basophils # (Manual) PT INR Fibrinogen dRVVT Confirm Interp Factor V Activity POC ABG pH POC ABG pCO2 POC ABG pO2 ABG pO2 ABG HCO3 ABG Base Excess ABG Hemoglobin Oxyhemoglobin Sodium 134 L Potassium Chloride Carbon Dioxide 21 L BUN 91 H Creatinine 1.9 H Glucose 110 H POC Glucose 119 H 119 H Lactic Acid Calcium 10.3 H Ionized Calcium Phosphorus Magnesium Direct Bilirubin AST ALT Alkaline Phosphatase Lactate Dehydrogenase Troponin T C-Reactive Protein Total Protein Albumin Prealbumin Triglycerides Cholesterol LDL Cholesterol Direct HDL Cholesterol 25-OH Vitamin D Total PTH Intact Urine pH Urine WBC (Auto) Urine Creatinine Urine Total Protein Fluid Total Protein Vancomycin Trough Rheumatoid Factor Complement C4 Miscellaneous Test Crossmatch 02/03/17 02/04/17 02/04/17 17:13 04:00 05:18 WBC RBC Hgb Hct MCV MCH MCHC RDW Plt Count Lymph % (Auto) [place] % (Auto) Lymph # [place] # Baso # Seg Neutrophils % Seg Neuts % (Manual) Lymphocytes % (Manual) Monocytes % (Manual) Eosinophils % (Manual) Basophils % (Manual) Nucleated RBC % Seg Neutrophils # Seg Neutrophils # Man Lymphocytes # (Manual) Monocytes # (Manual) Eosinophils # (Manual) Basophils # (Manual) PT INR Fibrinogen dRVVT Confirm Interp Factor V Activity POC ABG pH POC ABG pCO2 POC ABG pO2 ABG pO2 ABG HCO3 ABG Base Excess ABG Hemoglobin Oxyhemoglobin Sodium 136 L Potassium Chloride Carbon Dioxide BUN 58 H Creatinine 1.3 H Glucose 103 H POC Glucose 133 H 132 H Lactic Acid Calcium Ionized Calcium Phosphorus 2.00 L D Magnesium 1.60 L Direct Bilirubin AST ALT Alkaline Phosphatase Lactate Dehydrogenase Troponin T C-Reactive Protein Total Protein Albumin Prealbumin Triglycerides Cholesterol LDL Cholesterol Direct HDL Cholesterol 25-OH Vitamin D Total PTH Intact Urine pH Urine WBC (Auto) Urine Creatinine Urine Total Protein Fluid Total Protein Vancomycin Trough Rheumatoid Factor Complement C4 Miscellaneous Test Crossmatch 02/05/17 02/05/17 02/05/17 00:01 04:00 06:42 WBC RBC Hgb Hct MCV MCH MCHC RDW Plt Count Lymph % (Auto) [place] % (Auto) Lymph # [place] # Baso # Seg Neutrophils % Seg Neuts % (Manual) Lymphocytes % (Manual) Monocytes % (Manual) Eosinophils % (Manual) Basophils % (Manual) Nucleated RBC % Seg Neutrophils # Seg Neutrophils # Man Lymphocytes # (Manual) Monocytes # (Manual) Eosinophils # (Manual) Basophils # (Manual) PT INR Fibrinogen dRVVT Confirm Interp Factor V Activity POC ABG pH POC ABG pCO2 POC ABG pO2 ABG pO2 ABG HCO3 ABG Base Excess ABG Hemoglobin Oxyhemoglobin Sodium Potassium Chloride Carbon Dioxide BUN 83 H Creatinine 1.8 H Glucose POC Glucose 119 H 110 H Lactic Acid Calcium 10.7 H Ionized Calcium Phosphorus Magnesium Direct Bilirubin AST ALT Alkaline Phosphatase Lactate Dehydrogenase Troponin T C-Reactive Protein Total Protein Albumin Prealbumin Triglycerides Cholesterol LDL Cholesterol Direct HDL Cholesterol 25-OH Vitamin D Total PTH Intact Urine pH Urine WBC (Auto) Urine Creatinine Urine Total Protein Fluid Total Protein Vancomycin Trough Rheumatoid Factor Complement C4 Miscellaneous Test Crossmatch 02/05/17 02/05/17 02/05/17 09:59 11:47 23:44 WBC RBC 2.69 L Hgb 7.2 L Hct 22.5 L MCV MCH 27 L MCHC RDW 18.6 H Plt Count Lymph % (Auto) [place] % (Auto) 9.2 H Lymph # [place] # 0.9 H Baso # Seg Neutrophils % Seg Neuts % (Manual) Lymphocytes % (Manual) Monocytes % (Manual) Eosinophils % (Manual) Basophils % (Manual) Nucleated RBC % Seg Neutrophils # Seg Neutrophils # Man Lymphocytes # (Manual) Monocytes # (Manual) Eosinophils # (Manual) Basophils # (Manual) PT INR Fibrinogen dRVVT Confirm Interp Factor V Activity POC ABG pH POC ABG pCO2 POC ABG pO2 ABG pO2 ABG HCO3 ABG Base Excess ABG Hemoglobin Oxyhemoglobin Sodium Potassium Chloride Carbon Dioxide BUN Creatinine Glucose POC Glucose 130 H 123 H Lactic Acid Calcium Ionized Calcium Phosphorus Magnesium Direct Bilirubin AST ALT Alkaline Phosphatase Lactate Dehydrogenase Troponin T C-Reactive Protein Total Protein Albumin Prealbumin Triglycerides Cholesterol LDL Cholesterol Direct HDL Cholesterol 25-OH Vitamin D Total PTH Intact Urine pH Urine WBC (Auto) Urine Creatinine Urine Total Protein Fluid Total Protein Vancomycin Trough Rheumatoid Factor Complement C4 Miscellaneous Test Crossmatch 02/06/17 02/06/17 02/06/17 04:45 05:58 12:01 WBC RBC Hgb Hct MCV MCH MCHC RDW Plt Count Lymph % (Auto) [place] % (Auto) Lymph # [place] # Baso # Seg Neutrophils % Seg Neuts % (Manual) Lymphocytes % (Manual) Monocytes % (Manual) Eosinophils % (Manual) Basophils % (Manual) Nucleated RBC % Seg Neutrophils # Seg Neutrophils # Man Lymphocytes # (Manual) Monocytes # (Manual) Eosinophils # (Manual) Basophils # (Manual) PT INR Fibrinogen dRVVT Confirm Interp Factor V Activity POC ABG pH POC ABG pCO2 POC ABG pO2 ABG pO2 ABG HCO3 ABG Base Excess ABG Hemoglobin Oxyhemoglobin Sodium Potassium Chloride Carbon Dioxide BUN 101 H Creatinine 2.0 H Glucose 102 H POC Glucose 115 H 132 H Lactic Acid Calcium 10.6 H Ionized Calcium Phosphorus Magnesium Direct Bilirubin AST ALT Alkaline Phosphatase 199 H Lactate Dehydrogenase Troponin T C-Reactive Protein Total Protein Albumin 1.4 L Prealbumin Triglycerides Cholesterol LDL Cholesterol Direct HDL Cholesterol 25-OH Vitamin D Total PTH Intact Urine pH Urine WBC (Auto) Urine Creatinine Urine Total Protein Fluid Total Protein Vancomycin Trough Rheumatoid Factor Complement C4 Miscellaneous Test Crossmatch 02/06/17 02/06/17 02/07/17 17:41 23:32 05:04 WBC RBC Hgb Hct MCV MCH MCHC RDW Plt Count Lymph % (Auto) [place] % (Auto) Lymph # [place] # Baso # Seg Neutrophils % Seg Neuts % (Manual) Lymphocytes % (Manual) Monocytes % (Manual) Eosinophils % (Manual) Basophils % (Manual) Nucleated RBC % Seg Neutrophils # Seg Neutrophils # Man Lymphocytes # (Manual) Monocytes # (Manual) Eosinophils # (Manual) Basophils # (Manual) PT INR Fibrinogen dRVVT Confirm Interp Factor V Activity POC ABG pH POC ABG pCO2 POC ABG pO2 ABG pO2 ABG HCO3 ABG Base Excess ABG Hemoglobin Oxyhemoglobin Sodium Potassium Chloride Carbon Dioxide BUN Creatinine Glucose POC Glucose 134 H 128 H 119 H Lactic Acid Calcium Ionized Calcium Phosphorus Magnesium Direct Bilirubin AST ALT Alkaline Phosphatase Lactate Dehydrogenase Troponin T C-Reactive Protein Total Protein Albumin Prealbumin Triglycerides Cholesterol LDL Cholesterol Direct HDL Cholesterol 25-OH Vitamin D Total PTH Intact Urine pH Urine WBC (Auto) Urine Creatinine Urine Total Protein Fluid Total Protein Vancomycin Trough Rheumatoid Factor Complement C4 Miscellaneous Test Crossmatch 02/07/17 02/07/17 02/07/17 06:30 11:20 17:13 WBC RBC Hgb Hct MCV MCH MCHC RDW Plt Count Lymph % (Auto) [place] % (Auto) Lymph # [place] # Baso # Seg Neutrophils % Seg Neuts % (Manual) Lymphocytes % (Manual) Monocytes % (Manual) Eosinophils % (Manual) Basophils % (Manual) Nucleated RBC % Seg Neutrophils # Seg Neutrophils # Man Lymphocytes # (Manual) Monocytes # (Manual) Eosinophils # (Manual) Basophils # (Manual) PT INR Fibrinogen dRVVT Confirm Interp Factor V Activity POC ABG pH POC ABG pCO2 POC ABG pO2 ABG pO2 ABG HCO3 ABG Base Excess ABG Hemoglobin Oxyhemoglobin Sodium Potassium 3.4 L Chloride Carbon Dioxide BUN 69 H Creatinine 1.5 H Glucose 105 H POC Glucose 117 H 110 H Lactic Acid Calcium Ionized Calcium Phosphorus Magnesium 1.50 L Direct Bilirubin AST ALT Alkaline Phosphatase Lactate Dehydrogenase Troponin T C-Reactive Protein Total Protein Albumin Prealbumin Triglycerides Cholesterol LDL Cholesterol Direct HDL Cholesterol 25-OH Vitamin D Total PTH Intact Urine pH Urine WBC (Auto) Urine Creatinine Urine Total Protein Fluid Total Protein Vancomycin Trough Rheumatoid Factor Complement C4 Miscellaneous Test Crossmatch 02/07/17 02/08/17 02/08/17 20:47 04:00 11:43 WBC RBC Hgb Hct MCV MCH MCHC RDW Plt Count Lymph % (Auto) [place] % (Auto) Lymph # [place] # Baso # Seg Neutrophils % Seg Neuts % (Manual) Lymphocytes % (Manual) Monocytes % (Manual) Eosinophils % (Manual) Basophils % (Manual) Nucleated RBC % Seg Neutrophils # Seg Neutrophils # Man Lymphocytes # (Manual) Monocytes # (Manual) Eosinophils # (Manual) Basophils # (Manual) PT INR Fibrinogen dRVVT Confirm Interp Factor V Activity POC ABG pH POC ABG pCO2 POC ABG pO2 ABG pO2 ABG HCO3 ABG Base Excess ABG Hemoglobin Oxyhemoglobin Sodium Potassium Chloride Carbon Dioxide BUN 86 H Creatinine 1.7 H Glucose POC Glucose 115 H 122 H Lactic Acid Calcium Ionized Calcium Phosphorus Magnesium 1.60 L Direct Bilirubin AST ALT Alkaline Phosphatase Lactate Dehydrogenase Troponin T C-Reactive Protein Total Protein Albumin Prealbumin Triglycerides Cholesterol LDL Cholesterol Direct HDL Cholesterol 25-OH Vitamin D Total PTH Intact Urine pH Urine WBC (Auto) Urine Creatinine Urine Total Protein Fluid Total Protein Vancomycin Trough Rheumatoid Factor Complement C4 Miscellaneous Test Crossmatch 02/08/17 02/09/17 02/09/17 17:36 05:44 11:30 WBC RBC Hgb Hct MCV MCH MCHC RDW Plt Count Lymph % (Auto) [place] % (Auto) Lymph # [place] # Baso # Seg Neutrophils % Seg Neuts % (Manual) Lymphocytes % (Manual) Monocytes % (Manual) Eosinophils % (Manual) Basophils % (Manual) Nucleated RBC % Seg Neutrophils # Seg Neutrophils # Man Lymphocytes # (Manual) Monocytes # (Manual) Eosinophils # (Manual) Basophils # (Manual) PT INR Fibrinogen dRVVT Confirm Interp Factor V Activity POC ABG pH POC ABG pCO2 POC ABG pO2 ABG pO2 ABG HCO3 ABG Base Excess ABG Hemoglobin Oxyhemoglobin Sodium Potassium Chloride Carbon Dioxide BUN Creatinine Glucose POC Glucose 125 H 117 H 120 H Lactic Acid Calcium Ionized Calcium Phosphorus Magnesium Direct Bilirubin AST ALT Alkaline Phosphatase Lactate Dehydrogenase Troponin T C-Reactive Protein Total Protein Albumin Prealbumin Triglycerides Cholesterol LDL Cholesterol Direct HDL Cholesterol 25-OH Vitamin D Total PTH Intact Urine pH Urine WBC (Auto) Urine Creatinine Urine Total Protein Fluid Total Protein Vancomycin Trough Rheumatoid Factor Complement C4 Miscellaneous Test Crossmatch 02/09/17 02/10/17 02/10/17 23:45 05:45 05:50 WBC RBC Hgb Hct MCV MCH MCHC RDW Plt Count Lymph % (Auto) [place] % (Auto) Lymph # [place] # Baso # Seg Neutrophils % Seg Neuts % (Manual) Lymphocytes % (Manual) Monocytes % (Manual) Eosinophils % (Manual) Basophils % (Manual) Nucleated RBC % Seg Neutrophils # Seg Neutrophils # Man Lymphocytes # (Manual) Monocytes # (Manual) Eosinophils # (Manual) Basophils # (Manual) PT INR Fibrinogen dRVVT Confirm Interp Factor V Activity POC ABG pH POC ABG pCO2 POC ABG pO2 ABG pO2 ABG HCO3 ABG Base Excess ABG Hemoglobin Oxyhemoglobin Sodium Potassium Chloride Carbon Dioxide BUN 85 H Creatinine 1.8 H Glucose 109 H POC Glucose 114 H 189 H Lactic Acid Calcium Ionized Calcium Phosphorus Magnesium 2.50 H Direct Bilirubin AST ALT Alkaline Phosphatase Lactate Dehydrogenase Troponin T C-Reactive Protein Total Protein Albumin Prealbumin Triglycerides Cholesterol LDL Cholesterol Direct HDL Cholesterol 25-OH Vitamin D Total PTH Intact Urine pH Urine WBC (Auto) Urine Creatinine Urine Total Protein Fluid Total Protein Vancomycin Trough Rheumatoid Factor Complement C4 Miscellaneous Test Crossmatch 02/10/17 02/10/17 02/10/17 05:51 11:55 17:42 WBC RBC Hgb Hct MCV MCH MCHC RDW Plt Count Lymph % (Auto) [place] % (Auto) Lymph # [place] # Baso # Seg Neutrophils % Seg Neuts % (Manual) Lymphocytes % (Manual) Monocytes % (Manual) Eosinophils % (Manual) Basophils % (Manual) Nucleated RBC % Seg Neutrophils # Seg Neutrophils # Man Lymphocytes # (Manual) Monocytes # (Manual) Eosinophils # (Manual) Basophils # (Manual) PT INR Fibrinogen dRVVT Confirm Interp Factor V Activity POC ABG pH POC ABG pCO2 POC ABG pO2 ABG pO2 ABG HCO3 ABG Base Excess ABG Hemoglobin Oxyhemoglobin Sodium Potassium Chloride Carbon Dioxide BUN Creatinine Glucose POC Glucose 106 H 146 H 132 H Lactic Acid Calcium Ionized Calcium Phosphorus Magnesium Direct Bilirubin AST ALT Alkaline Phosphatase Lactate Dehydrogenase Troponin T C-Reactive Protein Total Protein Albumin Prealbumin Triglycerides Cholesterol LDL Cholesterol Direct HDL Cholesterol 25-OH Vitamin D Total PTH Intact Urine pH Urine WBC (Auto) Urine Creatinine Urine Total Protein Fluid Total Protein Vancomycin Trough Rheumatoid Factor Complement C4 Miscellaneous Test Crossmatch 02/10/17 02/11/17 02/11/17 23:43 04:08 05:34 WBC RBC Hgb Hct MCV MCH MCHC RDW Plt Count Lymph % (Auto) [place] % (Auto) Lymph # [place] # Baso # Seg Neutrophils % Seg Neuts % (Manual) Lymphocytes % (Manual) Monocytes % (Manual) Eosinophils % (Manual) Basophils % (Manual) Nucleated RBC % Seg Neutrophils # Seg Neutrophils # Man Lymphocytes # (Manual) Monocytes # (Manual) Eosinophils # (Manual) Basophils # (Manual) PT INR Fibrinogen dRVVT Confirm Interp Factor V Activity POC ABG pH POC ABG pCO2 POC ABG pO2 ABG pO2 ABG HCO3 ABG Base Excess ABG Hemoglobin Oxyhemoglobin Sodium 136 L Potassium Chloride Carbon Dioxide BUN 65 H Creatinine 1.7 H Glucose 105 H POC Glucose 130 H 113 H Lactic Acid Calcium Ionized Calcium Phosphorus Magnesium Direct Bilirubin AST ALT Alkaline Phosphatase Lactate Dehydrogenase Troponin T C-Reactive Protein Total Protein Albumin Prealbumin Triglycerides Cholesterol LDL Cholesterol Direct HDL Cholesterol 25-OH Vitamin D Total PTH Intact Urine pH Urine WBC (Auto) Urine Creatinine Urine Total Protein Fluid Total Protein Vancomycin Trough Rheumatoid Factor Complement C4 Miscellaneous Test Crossmatch 02/11/17 02/11/17 02/12/17 11:56 23:18 06:19 WBC RBC Hgb Hct MCV MCH MCHC RDW Plt Count Lymph % (Auto) [place] % (Auto) Lymph # [place] # Baso # Seg Neutrophils % Seg Neuts % (Manual) Lymphocytes % (Manual) Monocytes % (Manual) Eosinophils % (Manual) Basophils % (Manual) Nucleated RBC % Seg Neutrophils # Seg Neutrophils # Man Lymphocytes # (Manual) Monocytes # (Manual) Eosinophils # (Manual) Basophils # (Manual) PT INR Fibrinogen dRVVT Confirm Interp Factor V Activity POC ABG pH POC ABG pCO2 POC ABG pO2 ABG pO2 ABG HCO3 ABG Base Excess ABG Hemoglobin Oxyhemoglobin Sodium 136 L Potassium Chloride 97.1 L Carbon Dioxide BUN 93 H Creatinine 2.4 H Glucose POC Glucose 126 H 119 H Lactic Acid Calcium 11.0 H Ionized Calcium Phosphorus Magnesium Direct Bilirubin AST ALT Alkaline Phosphatase Lactate Dehydrogenase Troponin T C-Reactive Protein Total Protein Albumin Prealbumin Triglycerides Cholesterol LDL Cholesterol Direct HDL Cholesterol 25-OH Vitamin D Total PTH Intact Urine pH Urine WBC (Auto) Urine Creatinine Urine Total Protein Fluid Total Protein Vancomycin Trough Rheumatoid Factor Complement C4 Miscellaneous Test Crossmatch 02/12/17 02/12/17 02/12/17 08:00 10:25 11:42 WBC 15.4 H RBC 2.63 L Hgb 6.9 L Hct 22.6 L MCV MCH 26 L MCHC RDW 20.5 H Plt Count Lymph % (Auto) [place] % (Auto) Lymph # [place] # Baso # Seg Neutrophils % Seg Neuts % (Manual) Lymphocytes % (Manual) Monocytes % (Manual) Eosinophils % (Manual) Basophils % (Manual) Nucleated RBC % Seg Neutrophils # Seg Neutrophils # Man Lymphocytes # (Manual) Monocytes # (Manual) Eosinophils # (Manual) Basophils # (Manual) PT INR Fibrinogen dRVVT Confirm Interp Factor V Activity POC ABG pH POC ABG pCO2 POC ABG pO2 ABG pO2 ABG HCO3 ABG Base Excess ABG Hemoglobin Oxyhemoglobin Sodium Potassium Chloride Carbon Dioxide BUN Creatinine Glucose POC Glucose 142 H Lactic Acid Calcium Ionized Calcium Phosphorus Magnesium Direct Bilirubin AST ALT Alkaline Phosphatase Lactate Dehydrogenase Troponin T C-Reactive Protein Total Protein Albumin Prealbumin Triglycerides Cholesterol LDL Cholesterol Direct HDL Cholesterol 25-OH Vitamin D Total PTH Intact Urine pH Urine WBC (Auto) Urine Creatinine Urine Total Protein Fluid Total Protein Vancomycin Trough Rheumatoid Factor Complement C4 Miscellaneous Test Crossmatch See Detail 02/12/17 02/13/17 02/13/17 18:04 00:04 05:00 WBC RBC Hgb Hct MCV MCH MCHC RDW Plt Count Lymph % (Auto) [place] % (Auto) Lymph # [place] # Baso # Seg Neutrophils % Seg Neuts % (Manual) Lymphocytes % (Manual) Monocytes % (Manual) Eosinophils % (Manual) Basophils % (Manual) Nucleated RBC % Seg Neutrophils # Seg Neutrophils # Man Lymphocytes # (Manual) Monocytes # (Manual) Eosinophils # (Manual) Basophils # (Manual) PT INR Fibrinogen dRVVT Confirm Interp Factor V Activity POC ABG pH POC ABG pCO2 POC ABG pO2 ABG pO2 ABG HCO3 ABG Base Excess ABG Hemoglobin Oxyhemoglobin Sodium 134 L Potassium Chloride 96.1 L Carbon Dioxide 20 L BUN 125 H Creatinine 3.0 H Glucose 111 H POC Glucose 135 H 109 H Lactic Acid Calcium 11.3 H Ionized Calcium Phosphorus Magnesium Direct Bilirubin AST ALT Alkaline Phosphatase Lactate Dehydrogenase Troponin T C-Reactive Protein Total Protein Albumin Prealbumin Triglycerides Cholesterol LDL Cholesterol Direct HDL Cholesterol 25-OH Vitamin D Total PTH Intact Urine pH Urine WBC (Auto) Urine Creatinine Urine Total Protein Fluid Total Protein Vancomycin Trough Rheumatoid Factor Complement C4 Miscellaneous Test Crossmatch 02/13/17 02/13/17 02/13/17 05:00 05:28 12:03 WBC 11.9 H RBC 2.92 L Hgb 7.8 L Hct 25.2 L MCV MCH 27 L MCHC RDW 19.3 H Plt Count Lymph % (Auto) [place] % (Auto) Lymph # [place] # Baso # Seg Neutrophils % Seg Neuts % (Manual) Lymphocytes % (Manual) Monocytes % (Manual) Eosinophils % (Manual) Basophils % (Manual) Nucleated RBC % Seg Neutrophils # Seg Neutrophils # Man Lymphocytes # (Manual) Monocytes # (Manual) Eosinophils # (Manual) Basophils # (Manual) PT INR Fibrinogen dRVVT Confirm Interp Factor V Activity POC ABG pH POC ABG pCO2 POC ABG pO2 ABG pO2 ABG HCO3 ABG Base Excess ABG Hemoglobin Oxyhemoglobin Sodium Potassium Chloride Carbon Dioxide BUN Creatinine Glucose POC Glucose 124 H 160 H Lactic Acid Calcium Ionized Calcium Phosphorus Magnesium Direct Bilirubin AST ALT Alkaline Phosphatase Lactate Dehydrogenase Troponin T C-Reactive Protein Total Protein Albumin Prealbumin Triglycerides Cholesterol LDL Cholesterol Direct HDL Cholesterol 25-OH Vitamin D Total PTH Intact Urine pH Urine WBC (Auto) Urine Creatinine Urine Total Protein Fluid Total Protein Vancomycin Trough Rheumatoid Factor Complement C4 Miscellaneous Test Crossmatch 02/13/17 02/14/17 02/14/17 18:09 06:16 08:08 WBC 15.2 H RBC 2.97 L Hgb 8.1 L Hct 26.3 L MCV MCH MCHC RDW 19.3 H Plt Count Lymph % (Auto) [place] % (Auto) Lymph # [place] # Baso # Seg Neutrophils % Seg Neuts % (Manual) Lymphocytes % (Manual) Monocytes % (Manual) Eosinophils % (Manual) Basophils % (Manual) Nucleated RBC % Seg Neutrophils # Seg Neutrophils # Man Lymphocytes # (Manual) Monocytes # (Manual) Eosinophils # (Manual) Basophils # (Manual) PT INR Fibrinogen dRVVT Confirm Interp Factor V Activity POC ABG pH POC ABG pCO2 POC ABG pO2 ABG pO2 ABG HCO3 ABG Base Excess ABG Hemoglobin Oxyhemoglobin Sodium Potassium Chloride Carbon Dioxide BUN Creatinine Glucose POC Glucose 110 H 112 H Lactic Acid Calcium Ionized Calcium Phosphorus Magnesium Direct Bilirubin AST ALT Alkaline Phosphatase Lactate Dehydrogenase Troponin T C-Reactive Protein Total Protein Albumin Prealbumin Triglycerides Cholesterol LDL Cholesterol Direct HDL Cholesterol 25-OH Vitamin D Total PTH Intact Urine pH Urine WBC (Auto) Urine Creatinine Urine Total Protein Fluid Total Protein Vancomycin Trough Rheumatoid Factor Complement C4 Miscellaneous Test Crossmatch 02/14/17 02/14/17 02/15/17 08:08 17:41 04:15 WBC RBC Hgb Hct MCV MCH MCHC RDW Plt Count Lymph % (Auto) [place] % (Auto) Lymph # [place] # Baso # Seg Neutrophils % Seg Neuts % (Manual) Lymphocytes % (Manual) Monocytes % (Manual) Eosinophils % (Manual) Basophils % (Manual) Nucleated RBC % Seg Neutrophils # Seg Neutrophils # Man Lymphocytes # (Manual) Monocytes # (Manual) Eosinophils # (Manual) Basophils # (Manual) PT INR Fibrinogen dRVVT Confirm Interp Factor V Activity POC ABG pH POC ABG pCO2 POC ABG pO2 ABG pO2 ABG HCO3 ABG Base Excess ABG Hemoglobin Oxyhemoglobin Sodium Potassium Chloride Carbon Dioxide 18 L 21 L BUN 79 H 113 H Creatinine 2.1 H 2.8 H Glucose POC Glucose 118 H Lactic Acid Calcium 10.7 H Ionized Calcium Phosphorus 1.70 L D Magnesium 1.60 L Direct Bilirubin AST ALT Alkaline Phosphatase Lactate Dehydrogenase Troponin T C-Reactive Protein Total Protein Albumin Prealbumin Triglycerides Cholesterol LDL Cholesterol Direct HDL Cholesterol 25-OH Vitamin D Total PTH Intact Urine pH Urine WBC (Auto) Urine Creatinine Urine Total Protein Fluid Total Protein Vancomycin Trough Rheumatoid Factor Complement C4 Miscellaneous Test Crossmatch 02/15/17 02/15/17 02/15/17 06:06 11:31 17:52 WBC RBC Hgb Hct MCV MCH MCHC RDW Plt Count Lymph % (Auto) [place] % (Auto) Lymph # [place] # Baso # Seg Neutrophils % Seg Neuts % (Manual) Lymphocytes % (Manual) Monocytes % (Manual) Eosinophils % (Manual) Basophils % (Manual) Nucleated RBC % Seg Neutrophils # Seg Neutrophils # Man Lymphocytes # (Manual) Monocytes # (Manual) Eosinophils # (Manual) Basophils # (Manual) PT INR Fibrinogen dRVVT Confirm Interp Factor V Activity POC ABG pH POC ABG pCO2 POC ABG pO2 ABG pO2 ABG HCO3 ABG Base Excess ABG Hemoglobin Oxyhemoglobin Sodium Potassium Chloride Carbon Dioxide BUN Creatinine Glucose POC Glucose 115 H 129 H 201 H Lactic Acid Calcium Ionized Calcium Phosphorus Magnesium Direct Bilirubin AST ALT Alkaline Phosphatase Lactate Dehydrogenase Troponin T C-Reactive Protein Total Protein Albumin Prealbumin Triglycerides Cholesterol LDL Cholesterol Direct HDL Cholesterol 25-OH Vitamin D Total PTH Intact Urine pH Urine WBC (Auto) Urine Creatinine Urine Total Protein Fluid Total Protein Vancomycin Trough Rheumatoid Factor Complement C4 Miscellaneous Test Crossmatch 02/15/17 02/15/17 02/15/17 19:08 19:08 19:08 WBC RBC Hgb Hct MCV MCH MCHC RDW Plt Count Lymph % (Auto) [place] % (Auto) Lymph # [place] # Baso # Seg Neutrophils % Seg Neuts % (Manual) Lymphocytes % (Manual) Monocytes % (Manual) Eosinophils % (Manual) Basophils % (Manual) Nucleated RBC % Seg Neutrophils # Seg Neutrophils # Man Lymphocytes # (Manual) Monocytes # (Manual) Eosinophils # (Manual) Basophils # (Manual) PT INR Fibrinogen dRVVT Confirm Interp Factor V Activity POC ABG pH POC ABG pCO2 POC ABG pO2 ABG pO2 ABG HCO3 ABG Base Excess ABG Hemoglobin Oxyhemoglobin Sodium Potassium Chloride Carbon Dioxide BUN Creatinine Glucose POC Glucose Lactic Acid Calcium Ionized Calcium 6.0 H Phosphorus Magnesium Direct Bilirubin AST ALT Alkaline Phosphatase Lactate Dehydrogenase Troponin T C-Reactive Protein Total Protein Albumin Prealbumin Triglycerides Cholesterol LDL Cholesterol Direct HDL Cholesterol 25-OH Vitamin D Total 13 L PTH Intact 10.88 L Urine pH Urine WBC (Auto) Urine Creatinine Urine Total Protein Fluid Total Protein Vancomycin Trough Rheumatoid Factor Complement C4 Miscellaneous Test Crossmatch 02/16/17 02/16/17 02/16/17 05:12 06:00 12:39 WBC RBC Hgb Hct MCV MCH MCHC RDW Plt Count Lymph % (Auto) [place] % (Auto) Lymph # [place] # Baso # Seg Neutrophils % Seg Neuts % (Manual) Lymphocytes % (Manual) Monocytes % (Manual) Eosinophils % (Manual) Basophils % (Manual) Nucleated RBC % Seg Neutrophils # Seg Neutrophils # Man Lymphocytes # (Manual) Monocytes # (Manual) Eosinophils # (Manual) Basophils # (Manual) PT INR Fibrinogen dRVVT Confirm Interp Factor V Activity POC ABG pH POC ABG pCO2 POC ABG pO2 ABG pO2 ABG HCO3 ABG Base Excess ABG Hemoglobin Oxyhemoglobin Sodium Potassium Chloride Carbon Dioxide BUN 74 H Creatinine 1.7 H Glucose 102 H POC Glucose 125 H 109 H Lactic Acid Calcium Ionized Calcium Phosphorus 2.10 L D Magnesium Direct Bilirubin AST ALT Alkaline Phosphatase Lactate Dehydrogenase Troponin T C-Reactive Protein Total Protein Albumin Prealbumin Triglycerides Cholesterol LDL Cholesterol Direct HDL Cholesterol 25-OH Vitamin D Total PTH Intact Urine pH Urine WBC (Auto) Urine Creatinine Urine Total Protein Fluid Total Protein Vancomycin Trough Rheumatoid Factor Complement C4 Miscellaneous Test Crossmatch 02/16/17 02/16/17 02/17/17 17:31 23:57 05:30 WBC RBC Hgb Hct MCV MCH MCHC RDW Plt Count Lymph % (Auto) [place] % (Auto) Lymph # [place] # Baso # Seg Neutrophils % Seg Neuts % (Manual) Lymphocytes % (Manual) Monocytes % (Manual) Eosinophils % (Manual) Basophils % (Manual) Nucleated RBC % Seg Neutrophils # Seg Neutrophils # Man Lymphocytes # (Manual) Monocytes # (Manual) Eosinophils # (Manual) Basophils # (Manual) PT INR Fibrinogen dRVVT Confirm Interp Factor V Activity POC ABG pH POC ABG pCO2 POC ABG pO2 ABG pO2 ABG HCO3 ABG Base Excess ABG Hemoglobin Oxyhemoglobin Sodium Potassium Chloride Carbon Dioxide BUN Creatinine Glucose POC Glucose 106 H 127 H 122 H Lactic Acid Calcium Ionized Calcium Phosphorus Magnesium Direct Bilirubin AST ALT Alkaline Phosphatase Lactate Dehydrogenase Troponin T C-Reactive Protein Total Protein Albumin Prealbumin Triglycerides Cholesterol LDL Cholesterol Direct HDL Cholesterol 25-OH Vitamin D Total PTH Intact Urine pH Urine WBC (Auto) Urine Creatinine Urine Total Protein Fluid Total Protein Vancomycin Trough Rheumatoid Factor Complement C4 Miscellaneous Test Crossmatch 02/17/17 02/17/17 02/17/17 06:00 12:17 17:57 WBC RBC Hgb Hct MCV MCH MCHC RDW Plt Count Lymph % (Auto) [place] % (Auto) Lymph # [place] # Baso # Seg Neutrophils % Seg Neuts % (Manual) Lymphocytes % (Manual) Monocytes % (Manual) Eosinophils % (Manual) Basophils % (Manual) Nucleated RBC % Seg Neutrophils # Seg Neutrophils # Man Lymphocytes # (Manual) Monocytes # (Manual) Eosinophils # (Manual) Basophils # (Manual) PT INR Fibrinogen dRVVT Confirm Interp Factor V Activity POC ABG pH POC ABG pCO2 POC ABG pO2 ABG pO2 ABG HCO3 ABG Base Excess ABG Hemoglobin Oxyhemoglobin Sodium Potassium Chloride Carbon Dioxide BUN 94 H Creatinine 2.3 H Glucose 106 H POC Glucose 173 H 140 H Lactic Acid Calcium Ionized Calcium Phosphorus Magnesium Direct Bilirubin AST ALT Alkaline Phosphatase Lactate Dehydrogenase Troponin T C-Reactive Protein Total Protein Albumin Prealbumin Triglycerides Cholesterol LDL Cholesterol Direct HDL Cholesterol 25-OH Vitamin D Total PTH Intact Urine pH Urine WBC (Auto) Urine Creatinine Urine Total Protein Fluid Total Protein Vancomycin Trough Rheumatoid Factor Complement C4 Miscellaneous Test Crossmatch 02/18/17 02/18/17 02/18/17 00:20 05:30 06:14 WBC RBC Hgb Hct MCV MCH MCHC RDW Plt Count Lymph % (Auto) [place] % (Auto) Lymph # [place] # Baso # Seg Neutrophils % Seg Neuts % (Manual) Lymphocytes % (Manual) Monocytes % (Manual) Eosinophils % (Manual) Basophils % (Manual) Nucleated RBC % Seg Neutrophils # Seg Neutrophils # Man Lymphocytes # (Manual) Monocytes # (Manual) Eosinophils # (Manual) Basophils # (Manual) PT INR Fibrinogen dRVVT Confirm Interp Factor V Activity POC ABG pH POC ABG pCO2 POC ABG pO2 ABG pO2 ABG HCO3 ABG Base Excess ABG Hemoglobin Oxyhemoglobin Sodium 136 L Potassium Chloride 97.5 L Carbon Dioxide BUN 73 H Creatinine 1.9 H Glucose POC Glucose 132 H 106 H Lactic Acid Calcium Ionized Calcium Phosphorus Magnesium Direct Bilirubin AST ALT Alkaline Phosphatase Lactate Dehydrogenase Troponin T C-Reactive Protein Total Protein Albumin Prealbumin Triglycerides Cholesterol LDL Cholesterol Direct HDL Cholesterol 25-OH Vitamin D Total PTH Intact Urine pH Urine WBC (Auto) Urine Creatinine Urine Total Protein Fluid Total Protein Vancomycin Trough Rheumatoid Factor Complement C4 Miscellaneous Test Crossmatch 02/18/17 02/18/17 02/18/17 09:51 11:32 17:59 WBC 13.1 H RBC 2.77 L Hgb 7.6 L Hct 23.9 L MCV MCH MCHC RDW 19.0 H Plt Count Lymph % (Auto) [place] % (Auto) 11.1 H Lymph # [place] # 1.5 H Baso # Seg Neutrophils % Seg Neuts % (Manual) Lymphocytes % (Manual) Monocytes % (Manual) Eosinophils % (Manual) Basophils % (Manual) Nucleated RBC % Seg Neutrophils # 9.1 H Seg Neutrophils # Man Lymphocytes # (Manual) Monocytes # (Manual) Eosinophils # (Manual) Basophils # (Manual) PT INR Fibrinogen dRVVT Confirm Interp Factor V Activity POC ABG pH POC ABG pCO2 POC ABG pO2 ABG pO2 ABG HCO3 ABG Base Excess ABG Hemoglobin Oxyhemoglobin Sodium Potassium Chloride Carbon Dioxide BUN Creatinine Glucose POC Glucose 123 H 119 H Lactic Acid Calcium Ionized Calcium Phosphorus Magnesium Direct Bilirubin AST ALT Alkaline Phosphatase Lactate Dehydrogenase Troponin T C-Reactive Protein Total Protein Albumin Prealbumin Triglycerides Cholesterol LDL Cholesterol Direct HDL Cholesterol 25-OH Vitamin D Total PTH Intact Urine pH Urine WBC (Auto) Urine Creatinine Urine Total Protein Fluid Total Protein Vancomycin Trough Rheumatoid Factor Complement C4 Miscellaneous Test Crossmatch 02/18/17 02/19/17 02/19/17 23:47 05:36 09:45 WBC RBC Hgb Hct MCV MCH 27 L MCHC RDW 19.2 H Plt Count Lymph % (Auto) [place] % (Auto) Lymph # [place] # Baso # Seg Neutrophils % Seg Neuts % (Manual) Lymphocytes % (Manual) Monocytes % (Manual) Eosinophils % (Manual) Basophils % (Manual) Nucleated RBC % Seg Neutrophils # Seg Neutrophils # Man Lymphocytes # (Manual) Monocytes # (Manual) Eosinophils # (Manual) Basophils # (Manual) PT INR Fibrinogen dRVVT Confirm Interp Factor V Activity POC ABG pH POC ABG pCO2 POC ABG pO2 ABG pO2 ABG HCO3 ABG Base Excess ABG Hemoglobin Oxyhemoglobin Sodium Potassium Chloride Carbon Dioxide BUN Creatinine Glucose POC Glucose 110 H 121 H Lactic Acid Calcium Ionized Calcium Phosphorus Magnesium Direct Bilirubin AST ALT Alkaline Phosphatase Lactate Dehydrogenase Troponin T C-Reactive Protein Total Protein Albumin Prealbumin Triglycerides Cholesterol LDL Cholesterol Direct HDL Cholesterol 25-OH Vitamin D Total PTH Intact Urine pH Urine WBC (Auto) Urine Creatinine Urine Total Protein Fluid Total Protein Vancomycin Trough Rheumatoid Factor Complement C4 Miscellaneous Test Crossmatch 02/19/17 02/20/17 02/20/17 09:45 00:10 06:15 WBC RBC Hgb Hct MCV MCH MCHC RDW Plt Count Lymph % (Auto) [place] % (Auto) Lymph # [place] # Baso # Seg Neutrophils % Seg Neuts % (Manual) Lymphocytes % (Manual) Monocytes % (Manual) Eosinophils % (Manual) Basophils % (Manual) Nucleated RBC % Seg Neutrophils # Seg Neutrophils # Man Lymphocytes # (Manual) Monocytes # (Manual) Eosinophils # (Manual) Basophils # (Manual) PT INR Fibrinogen dRVVT Confirm Interp Factor V Activity POC ABG pH POC ABG pCO2 POC ABG pO2 ABG pO2 ABG HCO3 ABG Base Excess ABG Hemoglobin Oxyhemoglobin Sodium 136 L Potassium 5.1 H Chloride 97.6 L Carbon Dioxide 20 L 18 L BUN 110 H 135 H Creatinine 2.6 H 3.2 H Glucose 106 H 110 H POC Glucose 117 H Lactic Acid Calcium Ionized Calcium Phosphorus 4.70 H D 5.60 H Magnesium Direct Bilirubin AST ALT Alkaline Phosphatase Lactate Dehydrogenase Troponin T C-Reactive Protein Total Protein Albumin Prealbumin Triglycerides Cholesterol LDL Cholesterol Direct HDL Cholesterol 25-OH Vitamin D Total PTH Intact Urine pH Urine WBC (Auto) Urine Creatinine Urine Total Protein Fluid Total Protein Vancomycin Trough Rheumatoid Factor Complement C4 Miscellaneous Test Crossmatch 02/20/17 02/20/17 02/21/17 11:30 17:51 00:14 WBC RBC Hgb Hct MCV MCH MCHC RDW Plt Count Lymph % (Auto) [place] % (Auto) Lymph # [place] # Baso # Seg Neutrophils % Seg Neuts % (Manual) Lymphocytes % (Manual) Monocytes % (Manual) Eosinophils % (Manual) Basophils % (Manual) Nucleated RBC % Seg Neutrophils # Seg Neutrophils # Man Lymphocytes # (Manual) Monocytes # (Manual) Eosinophils # (Manual) Basophils # (Manual) PT INR Fibrinogen dRVVT Confirm Interp Factor V Activity POC ABG pH POC ABG pCO2 POC ABG pO2 ABG pO2 ABG HCO3 ABG Base Excess ABG Hemoglobin Oxyhemoglobin Sodium Potassium Chloride Carbon Dioxide BUN Creatinine Glucose POC Glucose 173 H 133 H 125 H Lactic Acid Calcium Ionized Calcium Phosphorus Magnesium Direct Bilirubin AST ALT Alkaline Phosphatase Lactate Dehydrogenase Troponin T C-Reactive Protein Total Protein Albumin Prealbumin Triglycerides Cholesterol LDL Cholesterol Direct HDL Cholesterol 25-OH Vitamin D Total PTH Intact Urine pH Urine WBC (Auto) Urine Creatinine Urine Total Protein Fluid Total Protein Vancomycin Trough Rheumatoid Factor Complement C4 Miscellaneous Test Crossmatch 02/21/17 02/21/17 02/21/17 04:09 05:03 11:58 WBC RBC Hgb Hct MCV MCH MCHC RDW Plt Count Lymph % (Auto) [place] % (Auto) Lymph # [place] # Baso # Seg Neutrophils % Seg Neuts % (Manual) Lymphocytes % (Manual) Monocytes % (Manual) Eosinophils % (Manual) Basophils % (Manual) Nucleated RBC % Seg Neutrophils # Seg Neutrophils # Man Lymphocytes # (Manual) Monocytes # (Manual) Eosinophils # (Manual) Basophils # (Manual) PT INR Fibrinogen dRVVT Confirm Interp Factor V Activity POC ABG pH POC ABG pCO2 POC ABG pO2 ABG pO2 ABG HCO3 ABG Base Excess ABG Hemoglobin Oxyhemoglobin Sodium 135 L Potassium Chloride Carbon Dioxide 20 L BUN 76 H Creatinine 2.0 H Glucose 125 H POC Glucose 134 H 139 H Lactic Acid Calcium Ionized Calcium Phosphorus Magnesium Direct Bilirubin AST ALT Alkaline Phosphatase Lactate Dehydrogenase Troponin T C-Reactive Protein Total Protein Albumin Prealbumin Triglycerides Cholesterol LDL Cholesterol Direct HDL Cholesterol 25-OH Vitamin D Total PTH Intact Urine pH Urine WBC (Auto) Urine Creatinine Urine Total Protein Fluid Total Protein Vancomycin Trough Rheumatoid Factor Complement C4 Miscellaneous Test Crossmatch 02/21/17 02/21/17 02/22/17 17:16 23:41 04:10 WBC RBC Hgb Hct MCV MCH MCHC RDW Plt Count Lymph % (Auto) [place] % (Auto) Lymph # [place] # Baso # Seg Neutrophils % Seg Neuts % (Manual) Lymphocytes % (Manual) Monocytes % (Manual) Eosinophils % (Manual) Basophils % (Manual) Nucleated RBC % Seg Neutrophils # Seg Neutrophils # Man Lymphocytes # (Manual) Monocytes # (Manual) Eosinophils # (Manual) Basophils # (Manual) PT INR Fibrinogen dRVVT Confirm Interp Factor V Activity POC ABG pH POC ABG pCO2 POC ABG pO2 ABG pO2 ABG HCO3 ABG Base Excess ABG Hemoglobin Oxyhemoglobin Sodium 135 L Potassium Chloride 97.7 L Carbon Dioxide 21 L BUN 101 H Creatinine 2.5 H Glucose 116 H POC Glucose 120 H 128 H Lactic Acid Calcium Ionized Calcium Phosphorus Magnesium Direct Bilirubin AST ALT Alkaline Phosphatase Lactate Dehydrogenase Troponin T C-Reactive Protein Total Protein Albumin 1.3 L Prealbumin Triglycerides Cholesterol LDL Cholesterol Direct HDL Cholesterol 25-OH Vitamin D Total PTH Intact Urine pH Urine WBC (Auto) Urine Creatinine Urine Total Protein Fluid Total Protein Vancomycin Trough Rheumatoid Factor Complement C4 Miscellaneous Test Crossmatch 02/22/17 02/22/17 02/22/17 06:03 11:38 18:19 WBC RBC Hgb Hct MCV MCH MCHC RDW Plt Count Lymph % (Auto) [place] % (Auto) Lymph # [place] # Baso # Seg Neutrophils % Seg Neuts % (Manual) Lymphocytes % (Manual) Monocytes % (Manual) Eosinophils % (Manual) Basophils % (Manual) Nucleated RBC % Seg Neutrophils # Seg Neutrophils # Man Lymphocytes # (Manual) Monocytes # (Manual) Eosinophils # (Manual) Basophils # (Manual) PT INR Fibrinogen dRVVT Confirm Interp Factor V Activity POC ABG pH POC ABG pCO2 POC ABG pO2 ABG pO2 ABG HCO3 ABG Base Excess ABG Hemoglobin Oxyhemoglobin Sodium Potassium Chloride Carbon Dioxide BUN Creatinine Glucose POC Glucose 126 H 147 H 121 H Lactic Acid Calcium Ionized Calcium Phosphorus Magnesium Direct Bilirubin AST ALT Alkaline Phosphatase Lactate Dehydrogenase Troponin T C-Reactive Protein Total Protein Albumin Prealbumin Triglycerides Cholesterol LDL Cholesterol Direct HDL Cholesterol 25-OH Vitamin D Total PTH Intact Urine pH Urine WBC (Auto) Urine Creatinine Urine Total Protein Fluid Total Protein Vancomycin Trough Rheumatoid Factor Complement C4 Miscellaneous Test Crossmatch 02/23/17 02/23/17 02/23/17 05:00 05:46 12:27 WBC RBC Hgb Hct MCV MCH MCHC RDW Plt Count Lymph % (Auto) [place] % (Auto) Lymph # [place] # Baso # Seg Neutrophils % Seg Neuts % (Manual) Lymphocytes % (Manual) Monocytes % (Manual) Eosinophils % (Manual) Basophils % (Manual) Nucleated RBC % Seg Neutrophils # Seg Neutrophils # Man Lymphocytes # (Manual) Monocytes # (Manual) Eosinophils # (Manual) Basophils # (Manual) PT INR Fibrinogen dRVVT Confirm Interp Factor V Activity POC ABG pH POC ABG pCO2 POC ABG pO2 ABG pO2 ABG HCO3 ABG Base Excess ABG Hemoglobin Oxyhemoglobin Sodium 136 L Potassium Chloride 97.1 L Carbon Dioxide BUN 50 H Creatinine 1.5 H Glucose POC Glucose 110 H 115 H Lactic Acid Calcium 8.1 L Ionized Calcium Phosphorus 1.90 L D Magnesium Direct Bilirubin AST ALT Alkaline Phosphatase Lactate Dehydrogenase Troponin T C-Reactive Protein Total Protein Albumin Prealbumin Triglycerides Cholesterol LDL Cholesterol Direct HDL Cholesterol 25-OH Vitamin D Total PTH Intact Urine pH Urine WBC (Auto) Urine Creatinine Urine Total Protein Fluid Total Protein Vancomycin Trough Rheumatoid Factor Complement C4 Miscellaneous Test Crossmatch 02/23/17 02/23/17 02/24/17 18:02 23:18 05:04 WBC RBC Hgb Hct MCV MCH MCHC RDW Plt Count Lymph % (Auto) [place] % (Auto) Lymph # [place] # Baso # Seg Neutrophils % Seg Neuts % (Manual) Lymphocytes % (Manual) Monocytes % (Manual) Eosinophils % (Manual) Basophils % (Manual) Nucleated RBC % Seg Neutrophils # Seg Neutrophils # Man Lymphocytes # (Manual) Monocytes # (Manual) Eosinophils # (Manual) Basophils # (Manual) PT INR Fibrinogen dRVVT Confirm Interp Factor V Activity POC ABG pH POC ABG pCO2 POC ABG pO2 ABG pO2 ABG HCO3 ABG Base Excess ABG Hemoglobin Oxyhemoglobin Sodium Potassium Chloride Carbon Dioxide BUN Creatinine Glucose POC Glucose 111 H 126 H 121 H Lactic Acid Calcium Ionized Calcium Phosphorus Magnesium Direct Bilirubin AST ALT Alkaline Phosphatase Lactate Dehydrogenase Troponin T C-Reactive Protein Total Protein Albumin Prealbumin Triglycerides Cholesterol LDL Cholesterol Direct HDL Cholesterol 25-OH Vitamin D Total PTH Intact Urine pH Urine WBC (Auto) Urine Creatinine Urine Total Protein Fluid Total Protein Vancomycin Trough Rheumatoid Factor Complement C4 Miscellaneous Test Crossmatch 02/24/17 02/24/17 02/24/17 05:20 10:05 11:34 WBC RBC 2.95 L Hgb 8.4 L Hct 25.7 L MCV MCH MCHC RDW 20.8 H Plt Count Lymph % (Auto) [place] % (Auto) Lymph # [place] # Baso # Seg Neutrophils % 71.8 H Seg Neuts % (Manual) Lymphocytes % (Manual) Monocytes % (Manual) Eosinophils % (Manual) Basophils % (Manual) Nucleated RBC % Seg Neutrophils # Seg Neutrophils # Man Lymphocytes # (Manual) Monocytes # (Manual) Eosinophils # (Manual) Basophils # (Manual) PT INR Fibrinogen dRVVT Confirm Interp Factor V Activity POC ABG pH POC ABG pCO2 POC ABG pO2 ABG pO2 ABG HCO3 ABG Base Excess ABG Hemoglobin Oxyhemoglobin Sodium 136 L Potassium Chloride 95.5 L Carbon Dioxide BUN 76 H Creatinine 2.2 H Glucose 109 H POC Glucose 123 H Lactic Acid Calcium Ionized Calcium Phosphorus Magnesium Direct Bilirubin AST ALT Alkaline Phosphatase Lactate Dehydrogenase Troponin T C-Reactive Protein Total Protein Albumin Prealbumin Triglycerides Cholesterol LDL Cholesterol Direct HDL Cholesterol 25-OH Vitamin D Total PTH Intact Urine pH Urine WBC (Auto) Urine Creatinine Urine Total Protein Fluid Total Protein Vancomycin Trough Rheumatoid Factor Complement C4 Miscellaneous Test Crossmatch 02/24/17 02/24/17 02/25/17 17:43 23:02 05:00 WBC RBC Hgb Hct MCV MCH MCHC RDW Plt Count Lymph % (Auto) [place] % (Auto) Lymph # [place] # Baso # Seg Neutrophils % Seg Neuts % (Manual) Lymphocytes % (Manual) Monocytes % (Manual) Eosinophils % (Manual) Basophils % (Manual) Nucleated RBC % Seg Neutrophils # Seg Neutrophils # Man Lymphocytes # (Manual) Monocytes # (Manual) Eosinophils # (Manual) Basophils # (Manual) PT INR Fibrinogen dRVVT Confirm Interp Factor V Activity POC ABG pH POC ABG pCO2 POC ABG pO2 ABG pO2 ABG HCO3 ABG Base Excess ABG Hemoglobin Oxyhemoglobin Sodium Potassium Chloride 96.8 L Carbon Dioxide BUN 94 H Creatinine 2.8 H Glucose 118 H POC Glucose 128 H 144 H Lactic Acid Calcium Ionized Calcium Phosphorus Magnesium Direct Bilirubin AST ALT Alkaline Phosphatase Lactate Dehydrogenase Troponin T C-Reactive Protein Total Protein Albumin Prealbumin Triglycerides Cholesterol LDL Cholesterol Direct HDL Cholesterol 25-OH Vitamin D Total PTH Intact Urine pH Urine WBC (Auto) Urine Creatinine Urine Total Protein Fluid Total Protein Vancomycin Trough Rheumatoid Factor Complement C4 Miscellaneous Test Crossmatch 02/25/17 02/25/17 02/25/17 05:32 11:44 18:18 WBC RBC Hgb Hct MCV MCH MCHC RDW Plt Count Lymph % (Auto) [place] % (Auto) Lymph # [place] # Baso # Seg Neutrophils % Seg Neuts % (Manual) Lymphocytes % (Manual) Monocytes % (Manual) Eosinophils % (Manual) Basophils % (Manual) Nucleated RBC % Seg Neutrophils # Seg Neutrophils # Man Lymphocytes # (Manual) Monocytes # (Manual) Eosinophils # (Manual) Basophils # (Manual) PT INR Fibrinogen dRVVT Confirm Interp Factor V Activity POC ABG pH POC ABG pCO2 POC ABG pO2 ABG pO2 ABG HCO3 ABG Base Excess ABG Hemoglobin Oxyhemoglobin Sodium Potassium Chloride Carbon Dioxide BUN Creatinine Glucose POC Glucose 118 H 106 H 210 H Lactic Acid Calcium Ionized Calcium Phosphorus Magnesium Direct Bilirubin AST ALT Alkaline Phosphatase Lactate Dehydrogenase Troponin T C-Reactive Protein Total Protein Albumin Prealbumin Triglycerides Cholesterol LDL Cholesterol Direct HDL Cholesterol 25-OH Vitamin D Total PTH Intact Urine pH Urine WBC (Auto) Urine Creatinine Urine Total Protein Fluid Total Protein Vancomycin Trough Rheumatoid Factor Complement C4 Miscellaneous Test Crossmatch 02/26/17 02/26/17 02/26/17 00:07 05:14 12:07 WBC RBC Hgb Hct MCV MCH MCHC RDW Plt Count Lymph % (Auto) [place] % (Auto) Lymph # [place] # Baso # Seg Neutrophils % Seg Neuts % (Manual) Lymphocytes % (Manual) Monocytes % (Manual) Eosinophils % (Manual) Basophils % (Manual) Nucleated RBC % Seg Neutrophils # Seg Neutrophils # Man Lymphocytes # (Manual) Monocytes # (Manual) Eosinophils # (Manual) Basophils # (Manual) PT INR Fibrinogen dRVVT Confirm Interp Factor V Activity POC ABG pH POC ABG pCO2 POC ABG pO2 ABG pO2 ABG HCO3 ABG Base Excess ABG Hemoglobin Oxyhemoglobin Sodium Potassium Chloride Carbon Dioxide BUN Creatinine Glucose POC Glucose 136 H 142 H 132 H Lactic Acid Calcium Ionized Calcium Phosphorus Magnesium Direct Bilirubin AST ALT Alkaline Phosphatase Lactate Dehydrogenase Troponin T C-Reactive Protein Total Protein Albumin Prealbumin Triglycerides Cholesterol LDL Cholesterol Direct HDL Cholesterol 25-OH Vitamin D Total PTH Intact Urine pH Urine WBC (Auto) Urine Creatinine Urine Total Protein Fluid Total Protein Vancomycin Trough Rheumatoid Factor Complement C4 Miscellaneous Test Crossmatch 02/26/17 02/26/17 02/27/17 18:35 23:54 06:25 WBC RBC Hgb Hct MCV MCH MCHC RDW Plt Count Lymph % (Auto) [place] % (Auto) Lymph # [place] # Baso # Seg Neutrophils % Seg Neuts % (Manual) Lymphocytes % (Manual) Monocytes % (Manual) Eosinophils % (Manual) Basophils % (Manual) Nucleated RBC % Seg Neutrophils # Seg Neutrophils # Man Lymphocytes # (Manual) Monocytes # (Manual) Eosinophils # (Manual) Basophils # (Manual) PT INR Fibrinogen dRVVT Confirm Interp Factor V Activity POC ABG pH POC ABG pCO2 POC ABG pO2 ABG pO2 ABG HCO3 ABG Base Excess ABG Hemoglobin Oxyhemoglobin Sodium Potassium Chloride Carbon Dioxide BUN Creatinine Glucose POC Glucose 155 H 150 H 138 H Lactic Acid Calcium Ionized Calcium Phosphorus Magnesium Direct Bilirubin AST ALT Alkaline Phosphatase Lactate Dehydrogenase Troponin T C-Reactive Protein Total Protein Albumin Prealbumin Triglycerides Cholesterol LDL Cholesterol Direct HDL Cholesterol 25-OH Vitamin D Total PTH Intact Urine pH Urine WBC (Auto) Urine Creatinine Urine Total Protein Fluid Total Protein Vancomycin Trough Rheumatoid Factor Complement C4 Miscellaneous Test Crossmatch 02/27/17 02/27/17 02/27/17 08:50 11:50 17:38 WBC RBC Hgb Hct MCV MCH MCHC RDW Plt Count Lymph % (Auto) [place] % (Auto) Lymph # [place] # Baso # Seg Neutrophils % Seg Neuts % (Manual) Lymphocytes % (Manual) Monocytes % (Manual) Eosinophils % (Manual) Basophils % (Manual) Nucleated RBC % Seg Neutrophils # Seg Neutrophils # Man Lymphocytes # (Manual) Monocytes # (Manual) Eosinophils # (Manual) Basophils # (Manual) PT INR Fibrinogen dRVVT Confirm Interp Factor V Activity POC ABG pH POC ABG pCO2 POC ABG pO2 ABG pO2 ABG HCO3 ABG Base Excess ABG Hemoglobin Oxyhemoglobin Sodium Potassium 3.2 L Chloride Carbon Dioxide BUN 95 H Creatinine 2.7 H Glucose 179 H POC Glucose 150 H 133 H Lactic Acid Calcium Ionized Calcium Phosphorus Magnesium Direct Bilirubin AST ALT Alkaline Phosphatase Lactate Dehydrogenase Troponin T C-Reactive Protein Total Protein Albumin Prealbumin Triglycerides Cholesterol LDL Cholesterol Direct HDL Cholesterol 25-OH Vitamin D Total PTH Intact Urine pH Urine WBC (Auto) Urine Creatinine Urine Total Protein Fluid Total Protein Vancomycin Trough Rheumatoid Factor Complement C4 Miscellaneous Test Crossmatch 02/27/17 02/28/17 02/28/17 23:55 05:23 06:10 WBC RBC Hgb Hct MCV MCH MCHC RDW Plt Count Lymph % (Auto) [place] % (Auto) Lymph # [place] # Baso # Seg Neutrophils % Seg Neuts % (Manual) Lymphocytes % (Manual) Monocytes % (Manual) Eosinophils % (Manual) Basophils % (Manual) Nucleated RBC % Seg Neutrophils # Seg Neutrophils # Man Lymphocytes # (Manual) Monocytes # (Manual) Eosinophils # (Manual) Basophils # (Manual) PT INR Fibrinogen dRVVT Confirm Interp Factor V Activity POC ABG pH POC ABG pCO2 POC ABG pO2 ABG pO2 ABG HCO3 ABG Base Excess ABG Hemoglobin Oxyhemoglobin Sodium 134 L Potassium 3.0 L Chloride 94.9 L Carbon Dioxide BUN 53 H Creatinine 1.9 H Glucose 138 H POC Glucose 134 H 164 H Lactic Acid Calcium Ionized Calcium Phosphorus 2.00 L D Magnesium Direct Bilirubin AST ALT Alkaline Phosphatase Lactate Dehydrogenase Troponin T C-Reactive Protein Total Protein Albumin Prealbumin Triglycerides Cholesterol LDL Cholesterol Direct HDL Cholesterol 25-OH Vitamin D Total PTH Intact Urine pH Urine WBC (Auto) Urine Creatinine Urine Total Protein Fluid Total Protein Vancomycin Trough Rheumatoid Factor Complement C4 Miscellaneous Test Crossmatch 02/28/17 02/28/17 02/28/17 12:18 17:54 23:47 WBC RBC Hgb Hct MCV MCH MCHC RDW Plt Count Lymph % (Auto) [place] % (Auto) Lymph # [place] # Baso # Seg Neutrophils % Seg Neuts % (Manual) Lymphocytes % (Manual) Monocytes % (Manual) Eosinophils % (Manual) Basophils % (Manual) Nucleated RBC % Seg Neutrophils # Seg Neutrophils # Man Lymphocytes # (Manual) Monocytes # (Manual) Eosinophils # (Manual) Basophils # (Manual) PT INR Fibrinogen dRVVT Confirm Interp Factor V Activity POC ABG pH POC ABG pCO2 POC ABG pO2 ABG pO2 ABG HCO3 ABG Base Excess ABG Hemoglobin Oxyhemoglobin Sodium Potassium Chloride Carbon Dioxide BUN Creatinine Glucose POC Glucose 135 H 140 H 144 H Lactic Acid Calcium Ionized Calcium Phosphorus Magnesium Direct Bilirubin AST ALT Alkaline Phosphatase Lactate Dehydrogenase Troponin T C-Reactive Protein Total Protein Albumin Prealbumin Triglycerides Cholesterol LDL Cholesterol Direct HDL Cholesterol 25-OH Vitamin D Total PTH Intact Urine pH Urine WBC (Auto) Urine Creatinine Urine Total Protein Fluid Total Protein Vancomycin Trough Rheumatoid Factor Complement C4 Miscellaneous Test Crossmatch 03/01/17 03/01/17 03/01/17 04:00 12:02 17:13 WBC RBC Hgb Hct MCV MCH MCHC RDW Plt Count Lymph % (Auto) [place] % (Auto) Lymph # [place] # Baso # Seg Neutrophils % Seg Neuts % (Manual) Lymphocytes % (Manual) Monocytes % (Manual) Eosinophils % (Manual) Basophils % (Manual) Nucleated RBC % Seg Neutrophils # Seg Neutrophils # Man Lymphocytes # (Manual) Monocytes # (Manual) Eosinophils # (Manual) Basophils # (Manual) PT INR Fibrinogen dRVVT Confirm Interp Factor V Activity POC ABG pH POC ABG pCO2 POC ABG pO2 ABG pO2 ABG HCO3 ABG Base Excess ABG Hemoglobin Oxyhemoglobin Sodium Potassium 3.0 L Chloride 97.0 L Carbon Dioxide BUN 81 H Creatinine 2.6 H Glucose 121 H POC Glucose 165 H 126 H Lactic Acid Calcium Ionized Calcium Phosphorus Magnesium Direct Bilirubin AST ALT Alkaline Phosphatase Lactate Dehydrogenase Troponin T C-Reactive Protein Total Protein Albumin Prealbumin Triglycerides Cholesterol LDL Cholesterol Direct HDL Cholesterol 25-OH Vitamin D Total PTH Intact Urine pH Urine WBC (Auto) Urine Creatinine Urine Total Protein Fluid Total Protein Vancomycin Trough Rheumatoid Factor Complement C4 Miscellaneous Test Crossmatch 03/02/17 03/02/17 03/02/17 00:10 03:05 05:20 WBC RBC Hgb Hct MCV MCH MCHC RDW Plt Count Lymph % (Auto) [place] % (Auto) Lymph # [place] # Baso # Seg Neutrophils % Seg Neuts % (Manual) Lymphocytes % (Manual) Monocytes % (Manual) Eosinophils % (Manual) Basophils % (Manual) Nucleated RBC % Seg Neutrophils # Seg Neutrophils # Man Lymphocytes # (Manual) Monocytes # (Manual) Eosinophils # (Manual) Basophils # (Manual) PT INR Fibrinogen dRVVT Confirm Interp Factor V Activity POC ABG pH POC ABG pCO2 POC ABG pO2 ABG pO2 ABG HCO3 ABG Base Excess ABG Hemoglobin Oxyhemoglobin Sodium Potassium 3.0 L Chloride Carbon Dioxide BUN 41 H Creatinine 1.6 H Glucose 130 H POC Glucose 129 H 173 H Lactic Acid Calcium Ionized Calcium Phosphorus 1.70 L D Magnesium 1.40 L Direct Bilirubin AST ALT Alkaline Phosphatase Lactate Dehydrogenase Troponin T C-Reactive Protein Total Protein Albumin Prealbumin Triglycerides Cholesterol LDL Cholesterol Direct HDL Cholesterol 25-OH Vitamin D Total PTH Intact Urine pH Urine WBC (Auto) Urine Creatinine Urine Total Protein Fluid Total Protein Vancomycin Trough Rheumatoid Factor Complement C4 Miscellaneous Test Crossmatch 03/02/17 03/02/17 03/02/17 11:49 16:38 23:46 WBC RBC Hgb Hct MCV MCH MCHC RDW Plt Count Lymph % (Auto) [place] % (Auto) Lymph # [place] # Baso # Seg Neutrophils % Seg Neuts % (Manual) Lymphocytes % (Manual) Monocytes % (Manual) Eosinophils % (Manual) Basophils % (Manual) Nucleated RBC % Seg Neutrophils # Seg Neutrophils # Man Lymphocytes # (Manual) Monocytes # (Manual) Eosinophils # (Manual) Basophils # (Manual) PT INR Fibrinogen dRVVT Confirm Interp Factor V Activity POC ABG pH POC ABG pCO2 POC ABG pO2 ABG pO2 ABG HCO3 ABG Base Excess ABG Hemoglobin Oxyhemoglobin Sodium Potassium Chloride Carbon Dioxide BUN Creatinine Glucose POC Glucose 129 H 141 H 119 H Lactic Acid Calcium Ionized Calcium Phosphorus Magnesium Direct Bilirubin AST ALT Alkaline Phosphatase Lactate Dehydrogenase Troponin T C-Reactive Protein Total Protein Albumin Prealbumin Triglycerides Cholesterol LDL Cholesterol Direct HDL Cholesterol 25-OH Vitamin D Total PTH Intact Urine pH Urine WBC (Auto) Urine Creatinine Urine Total Protein Fluid Total Protein Vancomycin Trough Rheumatoid Factor Complement C4 Miscellaneous Test Crossmatch 03/03/17 03/03/17 03/03/17 04:00 11:59 18:08 WBC RBC Hgb Hct MCV MCH MCHC RDW Plt Count Lymph % (Auto) [place] % (Auto) Lymph # [place] # Baso # Seg Neutrophils % Seg Neuts % (Manual) Lymphocytes % (Manual) Monocytes % (Manual) Eosinophils % (Manual) Basophils % (Manual) Nucleated RBC % Seg Neutrophils # Seg Neutrophils # Man Lymphocytes # (Manual) Monocytes # (Manual) Eosinophils # (Manual) Basophils # (Manual) PT INR Fibrinogen dRVVT Confirm Interp Factor V Activity POC ABG pH POC ABG pCO2 POC ABG pO2 ABG pO2 ABG HCO3 ABG Base Excess ABG Hemoglobin Oxyhemoglobin Sodium Potassium Chloride Carbon Dioxide BUN 70 H Creatinine 2.3 H Glucose POC Glucose 125 H 131 H Lactic Acid Calcium Ionized Calcium Phosphorus Magnesium Direct Bilirubin AST ALT Alkaline Phosphatase Lactate Dehydrogenase Troponin T C-Reactive Protein Total Protein Albumin Prealbumin Triglycerides Cholesterol LDL Cholesterol Direct HDL Cholesterol 25-OH Vitamin D Total PTH Intact Urine pH Urine WBC (Auto) Urine Creatinine Urine Total Protein Fluid Total Protein Vancomycin Trough Rheumatoid Factor Complement C4 Miscellaneous Test Crossmatch 03/03/17 03/03/17 03/04/17 20:17 23:43 05:21 WBC RBC Hgb Hct MCV MCH MCHC RDW Plt Count Lymph % (Auto) [place] % (Auto) Lymph # [place] # Baso # Seg Neutrophils % Seg Neuts % (Manual) Lymphocytes % (Manual) Monocytes % (Manual) Eosinophils % (Manual) Basophils % (Manual) Nucleated RBC % Seg Neutrophils # Seg Neutrophils # Man Lymphocytes # (Manual) Monocytes # (Manual) Eosinophils # (Manual) Basophils # (Manual) PT INR Fibrinogen dRVVT Confirm Interp Factor V Activity POC ABG pH 7.518 H POC ABG pCO2 28.8 L POC ABG pO2 61 L ABG pO2 ABG HCO3 ABG Base Excess ABG Hemoglobin Oxyhemoglobin Sodium Potassium Chloride Carbon Dioxide BUN Creatinine Glucose POC Glucose 122 H 130 H Lactic Acid Calcium Ionized Calcium Phosphorus Magnesium Direct Bilirubin AST ALT Alkaline Phosphatase Lactate Dehydrogenase Troponin T C-Reactive Protein Total Protein Albumin Prealbumin Triglycerides Cholesterol LDL Cholesterol Direct HDL Cholesterol 25-OH Vitamin D Total PTH Intact Urine pH Urine WBC (Auto) Urine Creatinine Urine Total Protein Fluid Total Protein Vancomycin Trough Rheumatoid Factor Complement C4 Miscellaneous Test Crossmatch 03/04/17 03/05/17 03/06/17 06:10 06:15 03:52 WBC RBC Hgb Hct MCV MCH MCHC RDW Plt Count Lymph % (Auto) [place] % (Auto) Lymph # [place] # Baso # Seg Neutrophils % Seg Neuts % (Manual) Lymphocytes % (Manual) Monocytes % (Manual) Eosinophils % (Manual) Basophils % (Manual) Nucleated RBC % Seg Neutrophils # Seg Neutrophils # Man Lymphocytes # (Manual) Monocytes # (Manual) Eosinophils # (Manual) Basophils # (Manual) PT INR Fibrinogen dRVVT Confirm Interp Factor V Activity POC ABG pH POC ABG pCO2 POC ABG pO2 ABG pO2 ABG HCO3 ABG Base Excess ABG Hemoglobin Oxyhemoglobin Sodium 135 L 136 L Potassium 5.2 H 5.9 H Chloride 95.8 L 97.7 L 96.0 L Carbon Dioxide 21 L 21 L BUN 40 H 56 H 70 H Creatinine 1.7 H 2.4 H 3.0 H Glucose 118 H POC Glucose Lactic Acid Calcium Ionized Calcium Phosphorus 4.80 H D 6.00 H D Magnesium 2.60 H Direct Bilirubin AST ALT Alkaline Phosphatase 165 H Lactate Dehydrogenase Troponin T C-Reactive Protein Total Protein Albumin 1.5 L Prealbumin Triglycerides Cholesterol LDL Cholesterol Direct HDL Cholesterol 25-OH Vitamin D Total PTH Intact Urine pH Urine WBC (Auto) Urine Creatinine Urine Total Protein Fluid Total Protein Vancomycin Trough Rheumatoid Factor Complement C4 Miscellaneous Test Crossmatch 03/06/17 03/06/17 03/06/17 11:19 18:40 23:39 WBC RBC Hgb Hct MCV MCH MCHC RDW Plt Count Lymph % (Auto) [place] % (Auto) Lymph # [place] # Baso # Seg Neutrophils % Seg Neuts % (Manual) Lymphocytes % (Manual) Monocytes % (Manual) Eosinophils % (Manual) Basophils % (Manual) Nucleated RBC % Seg Neutrophils # Seg Neutrophils # Man Lymphocytes # (Manual) Monocytes # (Manual) Eosinophils # (Manual) Basophils # (Manual) PT INR Fibrinogen dRVVT Confirm Interp Factor V Activity POC ABG pH POC ABG pCO2 POC ABG pO2 ABG pO2 ABG HCO3 ABG Base Excess ABG Hemoglobin Oxyhemoglobin Sodium Potassium Chloride Carbon Dioxide BUN Creatinine Glucose POC Glucose 108 H 110 H 156 H Lactic Acid Calcium Ionized Calcium Phosphorus Magnesium Direct Bilirubin AST ALT Alkaline Phosphatase Lactate Dehydrogenase Troponin T C-Reactive Protein Total Protein Albumin Prealbumin Triglycerides Cholesterol LDL Cholesterol Direct HDL Cholesterol 25-OH Vitamin D Total PTH Intact Urine pH Urine WBC (Auto) Urine Creatinine Urine Total Protein Fluid Total Protein Vancomycin Trough Rheumatoid Factor Complement C4 Miscellaneous Test Crossmatch 03/07/17 03/07/17 03/07/17 06:04 11:56 23:31 WBC RBC Hgb Hct MCV MCH MCHC RDW Plt Count Lymph % (Auto) [place] % (Auto) Lymph # [place] # Baso # Seg Neutrophils % Seg Neuts % (Manual) Lymphocytes % (Manual) Monocytes % (Manual) Eosinophils % (Manual) Basophils % (Manual) Nucleated RBC % Seg Neutrophils # Seg Neutrophils # Man Lymphocytes # (Manual) Monocytes # (Manual) Eosinophils # (Manual) Basophils # (Manual) PT INR Fibrinogen dRVVT Confirm Interp Factor V Activity POC ABG pH POC ABG pCO2 POC ABG pO2 ABG pO2 ABG HCO3 ABG Base Excess ABG Hemoglobin Oxyhemoglobin Sodium Potassium Chloride 97.5 L Carbon Dioxide BUN 28 H Creatinine 1.5 H Glucose POC Glucose 106 H 131 H Lactic Acid Calcium 7.9 L Ionized Calcium Phosphorus Magnesium Direct Bilirubin AST ALT Alkaline Phosphatase Lactate Dehydrogenase Troponin T C-Reactive Protein Total Protein Albumin Prealbumin Triglycerides Cholesterol LDL Cholesterol Direct HDL Cholesterol 25-OH Vitamin D Total PTH Intact Urine pH Urine WBC (Auto) Urine Creatinine Urine Total Protein Fluid Total Protein Vancomycin Trough Rheumatoid Factor Complement C4 Miscellaneous Test Crossmatch 03/08/17 03/08/17 03/08/17 05:15 05:38 11:50 WBC RBC Hgb Hct MCV MCH MCHC RDW Plt Count Lymph % (Auto) [place] % (Auto) Lymph # [place] # Baso # Seg Neutrophils % Seg Neuts % (Manual) Lymphocytes % (Manual) Monocytes % (Manual) Eosinophils % (Manual) Basophils % (Manual) Nucleated RBC % Seg Neutrophils # Seg Neutrophils # Man Lymphocytes # (Manual) Monocytes # (Manual) Eosinophils # (Manual) Basophils # (Manual) PT INR Fibrinogen dRVVT Confirm Interp Factor V Activity POC ABG pH POC ABG pCO2 POC ABG pO2 ABG pO2 ABG HCO3 ABG Base Excess ABG Hemoglobin Oxyhemoglobin Sodium 135 L Potassium Chloride 96.6 L Carbon Dioxide 20 L BUN 46 H Creatinine 2.3 H D Glucose 117 H POC Glucose 156 H 131 H Lactic Acid Calcium Ionized Calcium Phosphorus Magnesium Direct Bilirubin AST ALT Alkaline Phosphatase Lactate Dehydrogenase Troponin T C-Reactive Protein Total Protein Albumin Prealbumin Triglycerides Cholesterol LDL Cholesterol Direct HDL Cholesterol 25-OH Vitamin D Total PTH Intact Urine pH Urine WBC (Auto) Urine Creatinine Urine Total Protein Fluid Total Protein Vancomycin Trough Rheumatoid Factor Complement C4 Miscellaneous Test Crossmatch 03/08/17 03/09/17 03/09/17 23:34 04:42 05:20 WBC RBC Hgb Hct MCV MCH MCHC RDW Plt Count Lymph % (Auto) [place] % (Auto) Lymph # [place] # Baso # Seg Neutrophils % Seg Neuts % (Manual) Lymphocytes % (Manual) Monocytes % (Manual) Eosinophils % (Manual) Basophils % (Manual) Nucleated RBC % Seg Neutrophils # Seg Neutrophils # Man Lymphocytes # (Manual) Monocytes # (Manual) Eosinophils # (Manual) Basophils # (Manual) PT INR Fibrinogen dRVVT Confirm Interp Factor V Activity POC ABG pH POC ABG pCO2 POC ABG pO2 ABG pO2 ABG HCO3 ABG Base Excess ABG Hemoglobin Oxyhemoglobin Sodium Potassium 3.2 L Chloride Carbon Dioxide BUN 30 H Creatinine 1.7 H Glucose 112 H POC Glucose 125 H 128 H Lactic Acid Calcium 8.2 L Ionized Calcium Phosphorus 1.80 L D Magnesium 1.40 L Direct Bilirubin AST ALT Alkaline Phosphatase Lactate Dehydrogenase Troponin T C-Reactive Protein Total Protein Albumin Prealbumin Triglycerides Cholesterol LDL Cholesterol Direct HDL Cholesterol 25-OH Vitamin D Total PTH Intact Urine pH Urine WBC (Auto) Urine Creatinine Urine Total Protein Fluid Total Protein Vancomycin Trough Rheumatoid Factor Complement C4 Miscellaneous Test Crossmatch 03/09/17 03/09/17 03/10/17 11:48 17:38 00:08 WBC RBC Hgb Hct MCV MCH MCHC RDW Plt Count Lymph % (Auto) [place] % (Auto) Lymph # [place] # Baso # Seg Neutrophils % Seg Neuts % (Manual) Lymphocytes % (Manual) Monocytes % (Manual) Eosinophils % (Manual) Basophils % (Manual) Nucleated RBC % Seg Neutrophils # Seg Neutrophils # Man Lymphocytes # (Manual) Monocytes # (Manual) Eosinophils # (Manual) Basophils # (Manual) PT INR Fibrinogen dRVVT Confirm Interp Factor V Activity POC ABG pH POC ABG pCO2 POC ABG pO2 ABG pO2 ABG HCO3 ABG Base Excess ABG Hemoglobin Oxyhemoglobin Sodium Potassium Chloride Carbon Dioxide BUN Creatinine Glucose POC Glucose 146 H 140 H 137 H Lactic Acid Calcium Ionized Calcium Phosphorus Magnesium Direct Bilirubin AST ALT Alkaline Phosphatase Lactate Dehydrogenase Troponin T C-Reactive Protein Total Protein Albumin Prealbumin Triglycerides Cholesterol LDL Cholesterol Direct HDL Cholesterol 25-OH Vitamin D Total PTH Intact Urine pH Urine WBC (Auto) Urine Creatinine Urine Total Protein Fluid Total Protein Vancomycin Trough Rheumatoid Factor Complement C4 Miscellaneous Test Crossmatch 03/10/17 03/10/17 03/10/17 04:46 06:37 11:22 WBC RBC Hgb Hct MCV MCH MCHC RDW Plt Count Lymph % (Auto) [place] % (Auto) Lymph # [place] # Baso # Seg Neutrophils % Seg Neuts % (Manual) Lymphocytes % (Manual) Monocytes % (Manual) Eosinophils % (Manual) Basophils % (Manual) Nucleated RBC % Seg Neutrophils # Seg Neutrophils # Man Lymphocytes # (Manual) Monocytes # (Manual) Eosinophils # (Manual) Basophils # (Manual) PT INR Fibrinogen dRVVT Confirm Interp Factor V Activity POC ABG pH POC ABG pCO2 POC ABG pO2 ABG pO2 ABG HCO3 ABG Base Excess ABG Hemoglobin Oxyhemoglobin Sodium 135 L Potassium Chloride 96.3 L Carbon Dioxide 21 L BUN 46 H Creatinine 2.2 H Glucose 106 H POC Glucose 115 H 151 H Lactic Acid Calcium 8.2 L Ionized Calcium Phosphorus Magnesium Direct Bilirubin AST ALT Alkaline Phosphatase Lactate Dehydrogenase Troponin T C-Reactive Protein Total Protein Albumin Prealbumin Triglycerides Cholesterol LDL Cholesterol Direct HDL Cholesterol 25-OH Vitamin D Total PTH Intact Urine pH Urine WBC (Auto) Urine Creatinine Urine Total Protein Fluid Total Protein Vancomycin Trough Rheumatoid Factor Complement C4 Miscellaneous Test Crossmatch 03/10/17 03/10/17 03/11/17 17:53 23:46 05:19 WBC RBC Hgb Hct MCV MCH MCHC RDW Plt Count Lymph % (Auto) [place] % (Auto) Lymph # [place] # Baso # Seg Neutrophils % Seg Neuts % (Manual) Lymphocytes % (Manual) Monocytes % (Manual) Eosinophils % (Manual) Basophils % (Manual) Nucleated RBC % Seg Neutrophils # Seg Neutrophils # Man Lymphocytes # (Manual) Monocytes # (Manual) Eosinophils # (Manual) Basophils # (Manual) PT INR Fibrinogen dRVVT Confirm Interp Factor V Activity POC ABG pH POC ABG pCO2 POC ABG pO2 ABG pO2 ABG HCO3 ABG Base Excess ABG Hemoglobin Oxyhemoglobin Sodium Potassium Chloride Carbon Dioxide BUN Creatinine Glucose POC Glucose 137 H 131 H 108 H Lactic Acid Calcium Ionized Calcium Phosphorus Magnesium Direct Bilirubin AST ALT Alkaline Phosphatase Lactate Dehydrogenase Troponin T C-Reactive Protein Total Protein Albumin Prealbumin Triglycerides Cholesterol LDL Cholesterol Direct HDL Cholesterol 25-OH Vitamin D Total PTH Intact Urine pH Urine WBC (Auto) Urine Creatinine Urine Total Protein Fluid Total Protein Vancomycin Trough Rheumatoid Factor Complement C4 Miscellaneous Test Crossmatch 03/11/17 03/11/17 03/11/17 11:37 18:13 23:55 WBC RBC Hgb Hct MCV MCH MCHC RDW Plt Count Lymph % (Auto) [place] % (Auto) Lymph # [place] # Baso # Seg Neutrophils % Seg Neuts % (Manual) Lymphocytes % (Manual) Monocytes % (Manual) Eosinophils % (Manual) Basophils % (Manual) Nucleated RBC % Seg Neutrophils # Seg Neutrophils # Man Lymphocytes # (Manual) Monocytes # (Manual) Eosinophils # (Manual) Basophils # (Manual) PT INR Fibrinogen dRVVT Confirm Interp Factor V Activity POC ABG pH POC ABG pCO2 POC ABG pO2 ABG pO2 ABG HCO3 ABG Base Excess ABG Hemoglobin Oxyhemoglobin Sodium Potassium Chloride Carbon Dioxide BUN Creatinine Glucose POC Glucose 113 H 126 H 134 H Lactic Acid Calcium Ionized Calcium Phosphorus Magnesium Direct Bilirubin AST ALT Alkaline Phosphatase Lactate Dehydrogenase Troponin T C-Reactive Protein Total Protein Albumin Prealbumin Triglycerides Cholesterol LDL Cholesterol Direct HDL Cholesterol 25-OH Vitamin D Total PTH Intact Urine pH Urine WBC (Auto) Urine Creatinine Urine Total Protein Fluid Total Protein Vancomycin Trough Rheumatoid Factor Complement C4 Miscellaneous Test Crossmatch 03/12/17 03/12/17 03/12/17 05:06 11:30 17:39 WBC RBC Hgb Hct MCV MCH MCHC RDW Plt Count Lymph % (Auto) [place] % (Auto) Lymph # [place] # Baso # Seg Neutrophils % Seg Neuts % (Manual) Lymphocytes % (Manual) Monocytes % (Manual) Eosinophils % (Manual) Basophils % (Manual) Nucleated RBC % Seg Neutrophils # Seg Neutrophils # Man Lymphocytes # (Manual) Monocytes # (Manual) Eosinophils # (Manual) Basophils # (Manual) PT INR Fibrinogen dRVVT Confirm Interp Factor V Activity POC ABG pH POC ABG pCO2 POC ABG pO2 ABG pO2 ABG HCO3 ABG Base Excess ABG Hemoglobin Oxyhemoglobin Sodium Potassium Chloride Carbon Dioxide BUN Creatinine Glucose POC Glucose 127 H 144 H 151 H Lactic Acid Calcium Ionized Calcium Phosphorus Magnesium Direct Bilirubin AST ALT Alkaline Phosphatase Lactate Dehydrogenase Troponin T C-Reactive Protein Total Protein Albumin Prealbumin Triglycerides Cholesterol LDL Cholesterol Direct HDL Cholesterol 25-OH Vitamin D Total PTH Intact Urine pH Urine WBC (Auto) Urine Creatinine Urine Total Protein Fluid Total Protein Vancomycin Trough Rheumatoid Factor Complement C4 Miscellaneous Test Crossmatch 03/13/17 03/13/17 03/13/17 05:01 05:39 11:29 WBC RBC Hgb Hct MCV MCH MCHC RDW Plt Count Lymph % (Auto) [place] % (Auto) Lymph # [place] # Baso # Seg Neutrophils % Seg Neuts % (Manual) Lymphocytes % (Manual) Monocytes % (Manual) Eosinophils % (Manual) Basophils % (Manual) Nucleated RBC % Seg Neutrophils # Seg Neutrophils # Man Lymphocytes # (Manual) Monocytes # (Manual) Eosinophils # (Manual) Basophils # (Manual) PT INR Fibrinogen dRVVT Confirm Interp Factor V Activity POC ABG pH POC ABG pCO2 POC ABG pO2 ABG pO2 ABG HCO3 ABG Base Excess ABG Hemoglobin Oxyhemoglobin Sodium 136 L Potassium 3.4 L Chloride 94.6 L Carbon Dioxide BUN 68 H Creatinine 2.9 H Glucose 105 H POC Glucose 123 H 128 H Lactic Acid Calcium Ionized Calcium Phosphorus Magnesium Direct Bilirubin AST ALT Alkaline Phosphatase Lactate Dehydrogenase Troponin T C-Reactive Protein Total Protein Albumin Prealbumin Triglycerides Cholesterol LDL Cholesterol Direct HDL Cholesterol 25-OH Vitamin D Total PTH Intact Urine pH Urine WBC (Auto) Urine Creatinine Urine Total Protein Fluid Total Protein Vancomycin Trough Rheumatoid Factor Complement C4 Miscellaneous Test Crossmatch 03/13/17 03/13/17 03/14/17 17:39 21:53 03:30 WBC RBC Hgb Hct MCV MCH MCHC RDW Plt Count Lymph % (Auto) [place] % (Auto) Lymph # [place] # Baso # Seg Neutrophils % Seg Neuts % (Manual) Lymphocytes % (Manual) Monocytes % (Manual) Eosinophils % (Manual) Basophils % (Manual) Nucleated RBC % Seg Neutrophils # Seg Neutrophils # Man Lymphocytes # (Manual) Monocytes # (Manual) Eosinophils # (Manual) Basophils # (Manual) PT INR Fibrinogen dRVVT Confirm Interp Factor V Activity POC ABG pH POC ABG pCO2 POC ABG pO2 ABG pO2 ABG HCO3 ABG Base Excess ABG Hemoglobin Oxyhemoglobin Sodium 133 L Potassium Chloride 95.7 L Carbon Dioxide 21 L BUN 37 H Creatinine 1.8 H Glucose 138 H POC Glucose 160 H 147 H Lactic Acid Calcium 8.1 L Ionized Calcium Phosphorus 2.10 L D Magnesium 1.60 L Direct Bilirubin AST ALT Alkaline Phosphatase Lactate Dehydrogenase Troponin T C-Reactive Protein Total Protein Albumin Prealbumin Triglycerides Cholesterol LDL Cholesterol Direct HDL Cholesterol 25-OH Vitamin D Total PTH Intact Urine pH Urine WBC (Auto) Urine Creatinine Urine Total Protein Fluid Total Protein Vancomycin Trough Rheumatoid Factor Complement C4 Miscellaneous Test Crossmatch 03/14/17 03/14/17 03/14/17 05:19 11:08 12:51 WBC RBC Hgb Hct MCV MCH MCHC RDW Plt Count Lymph % (Auto) [place] % (Auto) Lymph # [place] # Baso # Seg Neutrophils % Seg Neuts % (Manual) Lymphocytes % (Manual) Monocytes % (Manual) Eosinophils % (Manual) Basophils % (Manual) Nucleated RBC % Seg Neutrophils # Seg Neutrophils # Man Lymphocytes # (Manual) Monocytes # (Manual) Eosinophils # (Manual) Basophils # (Manual) PT INR Fibrinogen dRVVT Confirm Interp Factor V Activity POC ABG pH POC ABG pCO2 POC ABG pO2 ABG pO2 ABG HCO3 ABG Base Excess ABG Hemoglobin Oxyhemoglobin Sodium Potassium Chloride Carbon Dioxide BUN Creatinine Glucose POC Glucose 159 H 144 H Lactic Acid Calcium Ionized Calcium Phosphorus Magnesium Direct Bilirubin AST ALT Alkaline Phosphatase Lactate Dehydrogenase Troponin T C-Reactive Protein 19.50 H Total Protein Albumin Prealbumin Triglycerides Cholesterol LDL Cholesterol Direct HDL Cholesterol 25-OH Vitamin D Total PTH Intact Urine pH Urine WBC (Auto) Urine Creatinine Urine Total Protein Fluid Total Protein Vancomycin Trough Rheumatoid Factor Complement C4 Miscellaneous Test Crossmatch 03/14/17 03/14/17 03/14/17 14:30 16:50 16:55 WBC 17.6 H RBC 2.18 L Hgb 6.0 L Hct 19.8 L* MCV MCH MCHC RDW 19.9 H Plt Count Lymph % (Auto) [place] % (Auto) Lymph # [place] # Baso # Seg Neutrophils % Seg Neuts % (Manual) Lymphocytes % (Manual) 13.0 L Monocytes % (Manual) 15.0 H Eosinophils % (Manual) Basophils % (Manual) Nucleated RBC % Seg Neutrophils # Seg Neutrophils # Man 12.3 H Lymphocytes # (Manual) Monocytes # (Manual) 2.6 H Eosinophils # (Manual) Basophils # (Manual) PT INR Fibrinogen dRVVT Confirm Interp Factor V Activity POC ABG pH POC ABG pCO2 POC ABG pO2 ABG pO2 ABG HCO3 ABG Base Excess ABG Hemoglobin Oxyhemoglobin Sodium Potassium Chloride Carbon Dioxide BUN Creatinine Glucose POC Glucose 156 H Lactic Acid Calcium Ionized Calcium Phosphorus Magnesium Direct Bilirubin AST ALT Alkaline Phosphatase Lactate Dehydrogenase Troponin T C-Reactive Protein Total Protein Albumin Prealbumin Triglycerides Cholesterol LDL Cholesterol Direct HDL Cholesterol 25-OH Vitamin D Total PTH Intact Urine pH Urine WBC (Auto) Urine Creatinine Urine Total Protein Fluid Total Protein Vancomycin Trough Rheumatoid Factor Complement C4 Miscellaneous Test Crossmatch See Detail 03/14/17 03/15/17 03/15/17 23:31 05:03 05:03 WBC 15.2 H RBC 2.42 L Hgb 6.9 L Hct 22.2 L MCV MCH MCHC RDW 18.4 H Plt Count Lymph % (Auto) [place] % (Auto) Lymph # [place] # Baso # Seg Neutrophils % Seg Neuts % (Manual) Lymphocytes % (Manual) Monocytes % (Manual) Eosinophils % (Manual) Basophils % (Manual) Nucleated RBC % Seg Neutrophils # Seg Neutrophils # Man Lymphocytes # (Manual) Monocytes # (Manual) Eosinophils # (Manual) Basophils # (Manual) PT INR Fibrinogen dRVVT Confirm Interp Factor V Activity POC ABG pH POC ABG pCO2 POC ABG pO2 ABG pO2 ABG HCO3 ABG Base Excess ABG Hemoglobin Oxyhemoglobin Sodium Potassium 3.5 L Chloride Carbon Dioxide BUN 54 H Creatinine 2.6 H Glucose 127 H POC Glucose 176 H Lactic Acid Calcium Ionized Calcium Phosphorus Magnesium Direct Bilirubin AST ALT Alkaline Phosphatase Lactate Dehydrogenase Troponin T C-Reactive Protein Total Protein Albumin Prealbumin Triglycerides Cholesterol LDL Cholesterol Direct HDL Cholesterol 25-OH Vitamin D Total PTH Intact Urine pH Urine WBC (Auto) Urine Creatinine Urine Total Protein Fluid Total Protein Vancomycin Trough Rheumatoid Factor Complement C4 Miscellaneous Test Crossmatch 03/15/17 03/15/17 03/15/17 05:04 12:52 17:46 WBC RBC Hgb Hct MCV MCH MCHC RDW Plt Count Lymph % (Auto) [place] % (Auto) Lymph # [place] # Baso # Seg Neutrophils % Seg Neuts % (Manual) Lymphocytes % (Manual) Monocytes % (Manual) Eosinophils % (Manual) Basophils % (Manual) Nucleated RBC % Seg Neutrophils # Seg Neutrophils # Man Lymphocytes # (Manual) Monocytes # (Manual) Eosinophils # (Manual) Basophils # (Manual) PT INR Fibrinogen dRVVT Confirm Interp Factor V Activity POC ABG pH POC ABG pCO2 POC ABG pO2 ABG pO2 ABG HCO3 ABG Base Excess ABG Hemoglobin Oxyhemoglobin Sodium Potassium Chloride Carbon Dioxide BUN Creatinine Glucose POC Glucose 106 H 141 H 170 H Lactic Acid Calcium Ionized Calcium Phosphorus Magnesium Direct Bilirubin AST ALT Alkaline Phosphatase Lactate Dehydrogenase Troponin T C-Reactive Protein Total Protein Albumin Prealbumin Triglycerides Cholesterol LDL Cholesterol Direct HDL Cholesterol 25-OH Vitamin D Total PTH Intact Urine pH Urine WBC (Auto) Urine Creatinine Urine Total Protein Fluid Total Protein Vancomycin Trough Rheumatoid Factor Complement C4 Miscellaneous Test Crossmatch 03/16/17 03/16/17 03/16/17 00:16 03:35 05:15 WBC RBC Hgb Hct MCV MCH MCHC RDW Plt Count Lymph % (Auto) [place] % (Auto) Lymph # [place] # Baso # Seg Neutrophils % Seg Neuts % (Manual) Lymphocytes % (Manual) Monocytes % (Manual) Eosinophils % (Manual) Basophils % (Manual) Nucleated RBC % Seg Neutrophils # Seg Neutrophils # Man Lymphocytes # (Manual) Monocytes # (Manual) Eosinophils # (Manual) Basophils # (Manual) PT INR Fibrinogen dRVVT Confirm Interp Factor V Activity POC ABG pH POC ABG pCO2 POC ABG pO2 ABG pO2 ABG HCO3 ABG Base Excess ABG Hemoglobin Oxyhemoglobin Sodium Potassium 3.5 L Chloride Carbon Dioxide BUN 26 H Creatinine 1.3 H Glucose 129 H POC Glucose 120 H 140 H Lactic Acid Calcium 7.9 L Ionized Calcium Phosphorus 2.20 L D Magnesium Direct Bilirubin AST ALT Alkaline Phosphatase Lactate Dehydrogenase Troponin T C-Reactive Protein Total Protein Albumin Prealbumin Triglycerides Cholesterol LDL Cholesterol Direct HDL Cholesterol 25-OH Vitamin D Total PTH Intact Urine pH Urine WBC (Auto) Urine Creatinine Urine Total Protein Fluid Total Protein Vancomycin Trough Rheumatoid Factor Complement C4 Miscellaneous Test Crossmatch 03/16/17 03/16/17 03/17/17 12:26 18:16 00:00 WBC RBC Hgb Hct MCV MCH MCHC RDW Plt Count Lymph % (Auto) [place] % (Auto) Lymph # [place] # Baso # Seg Neutrophils % Seg Neuts % (Manual) Lymphocytes % (Manual) Monocytes % (Manual) Eosinophils % (Manual) Basophils % (Manual) Nucleated RBC % Seg Neutrophils # Seg Neutrophils # Man Lymphocytes # (Manual) Monocytes # (Manual) Eosinophils # (Manual) Basophils # (Manual) PT INR Fibrinogen dRVVT Confirm Interp Factor V Activity POC ABG pH POC ABG pCO2 POC ABG pO2 ABG pO2 ABG HCO3 ABG Base Excess ABG Hemoglobin Oxyhemoglobin Sodium Potassium Chloride Carbon Dioxide BUN Creatinine Glucose POC Glucose 133 H 107 H 124 H Lactic Acid Calcium Ionized Calcium Phosphorus Magnesium Direct Bilirubin AST ALT Alkaline Phosphatase Lactate Dehydrogenase Troponin T C-Reactive Protein Total Protein Albumin Prealbumin Triglycerides Cholesterol LDL Cholesterol Direct HDL Cholesterol 25-OH Vitamin D Total PTH Intact Urine pH Urine WBC (Auto) Urine Creatinine Urine Total Protein Fluid Total Protein Vancomycin Trough Rheumatoid Factor Complement C4 Miscellaneous Test Crossmatch 03/17/17 03/17/17 03/17/17 04:00 05:57 12:00 WBC RBC Hgb Hct MCV MCH MCHC RDW Plt Count Lymph % (Auto) [place] % (Auto) Lymph # [place] # Baso # Seg Neutrophils % Seg Neuts % (Manual) Lymphocytes % (Manual) Monocytes % (Manual) Eosinophils % (Manual) Basophils % (Manual) Nucleated RBC % Seg Neutrophils # Seg Neutrophils # Man Lymphocytes # (Manual) Monocytes # (Manual) Eosinophils # (Manual) Basophils # (Manual) PT INR Fibrinogen dRVVT Confirm Interp Factor V Activity POC ABG pH POC ABG pCO2 POC ABG pO2 ABG pO2 ABG HCO3 ABG Base Excess ABG Hemoglobin Oxyhemoglobin Sodium 134 L Potassium Chloride 95.1 L Carbon Dioxide BUN 37 H Creatinine 1.8 H Glucose 115 H POC Glucose 141 H 129 H Lactic Acid Calcium 8.3 L Ionized Calcium Phosphorus 5.50 H D Magnesium Direct Bilirubin AST ALT Alkaline Phosphatase Lactate Dehydrogenase Troponin T C-Reactive Protein Total Protein Albumin Prealbumin Triglycerides Cholesterol LDL Cholesterol Direct HDL Cholesterol 25-OH Vitamin D Total PTH Intact Urine pH Urine WBC (Auto) Urine Creatinine Urine Total Protein Fluid Total Protein Vancomycin Trough Rheumatoid Factor Complement C4 Miscellaneous Test Crossmatch 03/17/17 03/18/17 03/18/17 17:23 00:04 04:00 WBC RBC Hgb Hct MCV MCH MCHC RDW Plt Count Lymph % (Auto) [place] % (Auto) Lymph # [place] # Baso # Seg Neutrophils % Seg Neuts % (Manual) Lymphocytes % (Manual) Monocytes % (Manual) Eosinophils % (Manual) Basophils % (Manual) Nucleated RBC % Seg Neutrophils # Seg Neutrophils # Man Lymphocytes # (Manual) Monocytes # (Manual) Eosinophils # (Manual) Basophils # (Manual) PT INR Fibrinogen dRVVT Confirm Interp Factor V Activity POC ABG pH POC ABG pCO2 POC ABG pO2 ABG pO2 ABG HCO3 ABG Base Excess ABG Hemoglobin Oxyhemoglobin Sodium Potassium Chloride Carbon Dioxide BUN 23 H Creatinine 1.3 H Glucose 122 H POC Glucose 155 H 126 H Lactic Acid Calcium 8.3 L Ionized Calcium Phosphorus Magnesium Direct Bilirubin AST ALT Alkaline Phosphatase Lactate Dehydrogenase Troponin T C-Reactive Protein Total Protein Albumin Prealbumin Triglycerides Cholesterol LDL Cholesterol Direct HDL Cholesterol 25-OH Vitamin D Total PTH Intact Urine pH Urine WBC (Auto) Urine Creatinine Urine Total Protein Fluid Total Protein Vancomycin Trough Rheumatoid Factor Complement C4 Miscellaneous Test Crossmatch 03/18/17 03/18/17 03/18/17 05:47 11:15 18:07 WBC RBC Hgb Hct MCV MCH MCHC RDW Plt Count Lymph % (Auto) [place] % (Auto) Lymph # [place] # Baso # Seg Neutrophils % Seg Neuts % (Manual) Lymphocytes % (Manual) Monocytes % (Manual) Eosinophils % (Manual) Basophils % (Manual) Nucleated RBC % Seg Neutrophils # Seg Neutrophils # Man Lymphocytes # (Manual) Monocytes # (Manual) Eosinophils # (Manual) Basophils # (Manual) PT INR Fibrinogen dRVVT Confirm Interp Factor V Activity POC ABG pH POC ABG pCO2 POC ABG pO2 ABG pO2 ABG HCO3 ABG Base Excess ABG Hemoglobin Oxyhemoglobin Sodium Potassium Chloride Carbon Dioxide BUN Creatinine Glucose POC Glucose 139 H 138 H 134 H Lactic Acid Calcium Ionized Calcium Phosphorus Magnesium Direct Bilirubin AST ALT Alkaline Phosphatase Lactate Dehydrogenase Troponin T C-Reactive Protein Total Protein Albumin Prealbumin Triglycerides Cholesterol LDL Cholesterol Direct HDL Cholesterol 25-OH Vitamin D Total PTH Intact Urine pH Urine WBC (Auto) Urine Creatinine Urine Total Protein Fluid Total Protein Vancomycin Trough Rheumatoid Factor Complement C4 Miscellaneous Test Crossmatch 03/19/17 03/19/17 03/19/17 00:34 06:11 11:15 WBC RBC Hgb Hct MCV MCH MCHC RDW Plt Count Lymph % (Auto) [place] % (Auto) Lymph # [place] # Baso # Seg Neutrophils % Seg Neuts % (Manual) Lymphocytes % (Manual) Monocytes % (Manual) Eosinophils % (Manual) Basophils % (Manual) Nucleated RBC % Seg Neutrophils # Seg Neutrophils # Man Lymphocytes # (Manual) Monocytes # (Manual) Eosinophils # (Manual) Basophils # (Manual) PT INR Fibrinogen dRVVT Confirm Interp Factor V Activity POC ABG pH POC ABG pCO2 POC ABG pO2 ABG pO2 ABG HCO3 ABG Base Excess ABG Hemoglobin Oxyhemoglobin Sodium Potassium Chloride Carbon Dioxide BUN Creatinine Glucose POC Glucose 139 H 146 H 129 H Lactic Acid Calcium Ionized Calcium Phosphorus Magnesium Direct Bilirubin AST ALT Alkaline Phosphatase Lactate Dehydrogenase Troponin T C-Reactive Protein Total Protein Albumin Prealbumin Triglycerides Cholesterol LDL Cholesterol Direct HDL Cholesterol 25-OH Vitamin D Total PTH Intact Urine pH Urine WBC (Auto) Urine Creatinine Urine Total Protein Fluid Total Protein Vancomycin Trough Rheumatoid Factor Complement C4 Miscellaneous Test Crossmatch 03/19/17 03/19/17 03/19/17 17:28 23:23 Unknown WBC RBC Hgb Hct MCV MCH MCHC RDW Plt Count Lymph % (Auto) [place] % (Auto) Lymph # [place] # Baso # Seg Neutrophils % Seg Neuts % (Manual) Lymphocytes % (Manual) Monocytes % (Manual) Eosinophils % (Manual) Basophils % (Manual) Nucleated RBC % Seg Neutrophils # Seg Neutrophils # Man Lymphocytes # (Manual) Monocytes # (Manual) Eosinophils # (Manual) Basophils # (Manual) PT INR Fibrinogen dRVVT Confirm Interp Factor V Activity POC ABG pH POC ABG pCO2 POC ABG pO2 ABG pO2 ABG HCO3 ABG Base Excess ABG Hemoglobin Oxyhemoglobin Sodium Potassium Chloride 96.8 L Carbon Dioxide BUN 34 H Creatinine 1.9 H Glucose 138 H POC Glucose 142 H 144 H Lactic Acid Calcium Ionized Calcium Phosphorus 5.20 H D Magnesium Direct Bilirubin AST ALT Alkaline Phosphatase Lactate Dehydrogenase Troponin T C-Reactive Protein Total Protein Albumin Prealbumin Triglycerides Cholesterol LDL Cholesterol Direct HDL Cholesterol 25-OH Vitamin D Total PTH Intact Urine pH Urine WBC (Auto) Urine Creatinine Urine Total Protein Fluid Total Protein Vancomycin Trough Rheumatoid Factor Complement C4 Miscellaneous Test Crossmatch 03/20/17 03/20/17 03/20/17 13:55 16:00 23:38 WBC 13.8 H RBC 2.21 L Hgb 6.6 L Hct 21.2 L MCV MCH MCHC RDW 19.7 H Plt Count Lymph % (Auto) [place] % (Auto) Lymph # [place] # 1.0 H Baso # Seg Neutrophils % 72.0 H Seg Neuts % (Manual) Lymphocytes % (Manual) Monocytes % (Manual) Eosinophils % (Manual) Basophils % (Manual) Nucleated RBC % Seg Neutrophils # 9.9 H Seg Neutrophils # Man Lymphocytes # (Manual) Monocytes # (Manual) Eosinophils # (Manual) Basophils # (Manual) PT INR Fibrinogen dRVVT Confirm Interp Factor V Activity POC ABG pH POC ABG pCO2 POC ABG pO2 ABG pO2 ABG HCO3 ABG Base Excess ABG Hemoglobin Oxyhemoglobin Sodium Potassium Chloride Carbon Dioxide BUN Creatinine Glucose POC Glucose 163 H Lactic Acid Calcium Ionized Calcium Phosphorus Magnesium Direct Bilirubin AST ALT Alkaline Phosphatase Lactate Dehydrogenase Troponin T C-Reactive Protein Total Protein Albumin Prealbumin Triglycerides Cholesterol LDL Cholesterol Direct HDL Cholesterol 25-OH Vitamin D Total PTH Intact Urine pH Urine WBC (Auto) Urine Creatinine Urine Total Protein Fluid Total Protein Vancomycin Trough Rheumatoid Factor Complement C4 Miscellaneous Test Crossmatch See Detail 03/20/17 03/21/17 03/21/17 Unknown 04:57 05:20 WBC 15.3 H RBC 2.68 L Hgb 8.8 L Hct 24.6 L MCV MCH 33 H MCHC 36 H RDW 19.4 H Plt Count Lymph % (Auto) [place] % (Auto) Lymph # [place] # 1.1 H Baso # Seg Neutrophils % 76.8 H Seg Neuts % (Manual) Lymphocytes % (Manual) Monocytes % (Manual) Eosinophils % (Manual) Basophils % (Manual) Nucleated RBC % Seg Neutrophils # 11.7 H Seg Neutrophils # Man Lymphocytes # (Manual) Monocytes # (Manual) Eosinophils # (Manual) Basophils # (Manual) PT INR Fibrinogen dRVVT Confirm Interp Factor V Activity POC ABG pH POC ABG pCO2 POC ABG pO2 ABG pO2 ABG HCO3 ABG Base Excess ABG Hemoglobin Oxyhemoglobin Sodium Potassium Chloride 97.7 L Carbon Dioxide BUN 43 H Creatinine 2.2 H Glucose POC Glucose 111 H Lactic Acid Calcium Ionized Calcium Phosphorus 5.30 H Magnesium Direct Bilirubin AST ALT 6 L Alkaline Phosphatase Lactate Dehydrogenase Troponin T C-Reactive Protein Total Protein Albumin 0.9 L Prealbumin Triglycerides Cholesterol LDL Cholesterol Direct HDL Cholesterol 25-OH Vitamin D Total PTH Intact Urine pH Urine WBC (Auto) Urine Creatinine Urine Total Protein Fluid Total Protein Vancomycin Trough Rheumatoid Factor Complement C4 Miscellaneous Test Crossmatch 03/21/17 03/22/17 03/22/17 17:18 06:25 12:30 WBC RBC Hgb Hct MCV MCH MCHC RDW Plt Count Lymph % (Auto) [place] % (Auto) Lymph # [place] # Baso # Seg Neutrophils % Seg Neuts % (Manual) Lymphocytes % (Manual) Monocytes % (Manual) Eosinophils % (Manual) Basophils % (Manual) Nucleated RBC % Seg Neutrophils # Seg Neutrophils # Man Lymphocytes # (Manual) Monocytes # (Manual) Eosinophils # (Manual) Basophils # (Manual) PT INR Fibrinogen dRVVT Confirm Interp Factor V Activity POC ABG pH POC ABG pCO2 POC ABG pO2 ABG pO2 ABG HCO3 ABG Base Excess ABG Hemoglobin Oxyhemoglobin Sodium 136 L Potassium Chloride 97.7 L Carbon Dioxide BUN 31 H Creatinine 1.8 H Glucose 102 H POC Glucose 118 H 164 H Lactic Acid Calcium Ionized Calcium Phosphorus Magnesium Direct Bilirubin AST ALT Alkaline Phosphatase Lactate Dehydrogenase Troponin T C-Reactive Protein Total Protein Albumin Prealbumin Triglycerides Cholesterol LDL Cholesterol Direct HDL Cholesterol 25-OH Vitamin D Total PTH Intact Urine pH Urine WBC (Auto) Urine Creatinine Urine Total Protein Fluid Total Protein Vancomycin Trough Rheumatoid Factor Complement C4 Miscellaneous Test Crossmatch 03/23/17 03/23/17 03/23/17 05:30 05:30 11:18 WBC RBC 2.50 L Hgb 8.0 L Hct 24.1 L MCV MCH MCHC RDW 22.2 H Plt Count Lymph % (Auto) [place] % (Auto) Lymph # [place] # Baso # Seg Neutrophils % 72.3 H Seg Neuts % (Manual) Lymphocytes % (Manual) Monocytes % (Manual) Eosinophils % (Manual) Basophils % (Manual) Nucleated RBC % Seg Neutrophils # Seg Neutrophils # Man Lymphocytes # (Manual) Monocytes # (Manual) Eosinophils # (Manual) Basophils # (Manual) PT INR Fibrinogen dRVVT Confirm Interp Factor V Activity POC ABG pH POC ABG pCO2 POC ABG pO2 ABG pO2 ABG HCO3 ABG Base Excess ABG Hemoglobin Oxyhemoglobin Sodium 136 L Potassium Chloride Carbon Dioxide BUN Creatinine 1.4 H Glucose POC Glucose 111 H Lactic Acid Calcium 8.2 L Ionized Calcium Phosphorus 2.10 L D Magnesium 1.60 L Direct Bilirubin AST ALT Alkaline Phosphatase Lactate Dehydrogenase Troponin T C-Reactive Protein Total Protein Albumin Prealbumin Triglycerides Cholesterol LDL Cholesterol Direct HDL Cholesterol 25-OH Vitamin D Total PTH Intact Urine pH Urine WBC (Auto) Urine Creatinine Urine Total Protein Fluid Total Protein Vancomycin Trough Rheumatoid Factor Complement C4 Miscellaneous Test Crossmatch 03/24/17 03/24/17 05:50 11:18 WBC RBC Hgb Hct MCV MCH MCHC RDW Plt Count Lymph % (Auto) [place] % (Auto) Lymph # [place] # Baso # Seg Neutrophils % Seg Neuts % (Manual) Lymphocytes % (Manual) Monocytes % (Manual) Eosinophils % (Manual) Basophils % (Manual) Nucleated RBC % Seg Neutrophils # Seg Neutrophils # Man Lymphocytes # (Manual) Monocytes # (Manual) Eosinophils # (Manual) Basophils # (Manual) PT INR Fibrinogen dRVVT Confirm Interp Factor V Activity POC ABG pH POC ABG pCO2 POC ABG pO2 ABG pO2 ABG HCO3 ABG Base Excess ABG Hemoglobin Oxyhemoglobin Sodium Potassium Chloride Carbon Dioxide BUN 26 H Creatinine 1.9 H Glucose POC Glucose 133 H Lactic Acid Calcium Ionized Calcium Phosphorus Magnesium Direct Bilirubin AST ALT Alkaline Phosphatase Lactate Dehydrogenase Troponin T C-Reactive Protein Total Protein Albumin Prealbumin Triglycerides Cholesterol LDL Cholesterol Direct HDL Cholesterol 25-OH Vitamin D Total PTH Intact Urine pH Urine WBC (Auto) Urine Creatinine Urine Total Protein Fluid Total Protein Vancomycin Trough Rheumatoid Factor Complement C4 Miscellaneous Test Crossmatch Allied health notes reviewed: RT
[2017-03-24] MEDS: HEPARIN IV PRN (15:00)
[2017-03-24] MEDS: ZOSYN/NS 2.25 GM/50ML 2.25 GM/50 ML BAG IV SCH ×2 (15:56→21:11)
--- NOTE | 2017-03-24 16:10 | Event Note ---
Date: 03/24/17 Patient with complex medical history who is now on hospital admission date 202. During her admission, the patient has had a normal white count for only 25 days. Her white count is again elevated and a request was made to remove the patient's Vas-Cath. The patient has multiple sources for her persistent and recurrent infection given her intra-abdominal pathology. Her drain is draining what appears to be feculent serous fluid. Would be concerned that the patient would likely need to be on suppressive antibiotics permanently as she does not appear to be a surgical candidate for revision/repair of her intra-abdominal pathology. I would doubt that the Vas-Cath is the source of the patient's infection however, it is likely colonized. If there is concern for colonization once the patient is adequately on suppressive antibiotics, the Vas- Cath can be removed to give the patient a line holiday.
--- NOTE | 2017-03-24 18:11 | Progress Note ---
Assessment and Plan Assessment: 1) Recurrent SIRS: new septic shock - resolved - Likely due to intra-abdominal abscess 2) History of Peritonitis: from gastric perforation from dislodged PEG with significant ascites -S/P exlap, repair of gastric perforation with wedge gastrectomy, abdominal washout, drain placement on 10/05 3) History of Candidemia: -Blood cultures positive for Silvia albicans on 09/23 and 09/25 -Blood cultures negative on 09/30 -PICC line changed on 10/03 -Source ? gastric perf (PEG placed on 09/20) +/- TPN +/- central lines -TTE 10/07 no vegetations -PICC exchanged on 10/03 -fully treated with micafungin for 14 days last day 10/13 4) History CA-UTI s/p gutierrez exchanged 5) Diarrhea - ? etiology ? antibiotic-induced, not better. 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 from GI bleed 13) Recent abdominal wall abscess at surgical site-treated 14 ) Recent Enterococcal bacteremia from PICC line infection. 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 -S/P debridement at bedside - new wound cx 01/24 +Proteus and MDR Pseudomonas (resistant to meropenem and cefepime/sensitive to ceftazidime) and wound VAC placement -CRP=24 --> 8 16) Presumed VAP: sputum + MDR Pseudomonas / Proteus / pleural effusion s/p thoracentesis 17) Resp failure - better 18) Perforated bowel: Ct showed presumed perf bowel with free air -repeat CT showed large 21x4.2 cm collection -s/p CT guided drainage -30 mL's of dark purulent fluid was aspirated 19) Enterococcal septicemia from IV cath. TTE no vegetations 18) PIV site infection s/p line removed on 03/09 tip + Enterococcus Plan: -f/u drainage cultures -continue zosyn and dapto for MDR Pseudomonas/Preteus/VRE -day 2 of 7 -remove femoral cath Will round back on Monday poor prognosis Thank you for your consultation, will follow up with you. Pauline Carias MD Infectious Diseases Specialist [facility] ([facility]) M [phone] O [phone] Subjective Date of service: 03/24/17 Principal diagnosis: Acute resp failure on MVS; S/P Acute CVA; Acute Encephalopathy; JUANITA Interval history: Interval history: remains on the vent, tachy on monitor, on amiodarone gtt, fever resolved, off levophed Microbiology: Blood cultures: 09/13 neg 09/23 Silvia albicans 09/25 Silvia 09/29 neg 10/07 neg 11/05 neg 11/07 ngtd 11/22 E faecalis 1 of 4 bottles 11/25 neg 12/27 neg 01/09 ngtd 02/14 ngtd 02/27 Enterococcus durans 1 of 4 bottles 03/06 ngtd PIV tip 03/09 Enterococcus, FLEET DRIVER, Proteus Urine cultures: 09/10 neg 09/13 neg 8/ 10-100K mixed species 10/07 neg 11/05 VRE 11/07 mixed bacteria Respiratory cultures: 09/07 neg 09/13 neg 09/23 neg 11/07 MDR Pseudomonas 10 tracheal + VRE 01/09 Pseudomonas x 3 and Proteues Pleural effusion: ngtd Wound cultures: 10/17 abd wall wound purulence + Pseudomonas MDR 01/24 GNRs 03/15 drainage - Proteus sen to zosyn, Pseudomonas sens zosyn, GNR x 1 and VRE Stool cultures: cath tip 11/07 + FLEET DRIVER Current Antimicrobials: zosyn 2 dapto 03/23 Previous Antimicrobials: Zosyn 10/07 Vancomycin PO 10/01 Metronidazole 09/25 Micafungin 09/27-10/13 Meropenem 10/10 Vanco 10/17 zosyn 10/21 Cefepime 11/10 vancomyin 11/07 fluconazole 10/19 cefepime 10/29levaquin 11/05 vanco 11/23 meropenem 01/08 ceftaz efepime 03/09 flagyl 03/09 vanco Objective - Exam Narrative Exam: General appearance: alert non communicative, on the vent via trach in mild resp distress, no following commands Eyes: anicteric sclera, moist conjunctivae; PERRLA HENT: Atraumatic; oropharynx limited; Normal external ears. +NGT with greenish secretion Neck: +trach in place; supple, no thyromegaly or lymphadenopathy Lungs: brit coarse BS CV: tachy Abdomen: Soft, tender, +old PEG site no drainage. +iliostomy. Right sided Surgical site x 2 with ostomy bags. +drain with clear Extremities: +peripheral edema Skin: sacral area wounds - per wound care STAGE 4 PRESSURE INJURY TO SACRAL MEASURES 7.5X6X2.5, WITH UNDERMINING FROM @9-1 OCLOCK-2.8CM-ULCER CLEANED WITH WOUND THERAPEUTIC STRATEGY LEAD-ULCER NEW - Sacrum wound measuring 9x11cm. Necrotic tissue noted on the wound edges and in the wound bed Now with a wound VAC Psych: somnolent . Neuro: alert non verbal on the vent. Lines: PICC / gutierrez - Constitutional Vitals: Vital Signs Temp Pulse Resp BP Pulse Ox 99.3 F 104 H 14 93/60 100 03/24/17 16:00 03/24/17 17:00 03/24/17 17:00 03/24/17 17:00 03/24/17 16:46 Temperature -Last 24 Hours Temperature 99.3 F Temperature 98.9 F Temperature 98.9 F Temperature 98.5 F Temperature 98.5 F Temperature 99.1 F Temperature 98.9 F Temperature 98.9 F - Labs CBC & Chem 7: 03/23/17 05:30 03/24/17 05:50 Labs: Abnormal lab results 03/24/17 03/24/17 Range/Units 05:50 11:18 BUN 26 H (7-17) mg/dL Creatinine 1.9 H (0.7-1.2) mg/dL POC Glucose 133 H (70-105)
[2017-03-24] MEDS ORDERED: TPN ADULT IV SCH (20:00)
[2017-03-24] MEDS ORDERED: INTRALIPID 20% 250 ML IV SCH (20:00)
[2017-03-25] MEDS: HumuLIN R SUB-Q SCH ×4 (00:23→18:37)
[2017-03-25] MEDS: LOPRESSOR IV SCH ×4 (02:22→19:06)
[2017-03-25] MEDS: ZOSYN/NS 2.25 GM/50ML 2.25 GM/50 ML BAG IV SCH ×3 (05:23→21:24)
[2017-03-25 06:40] LABS: Calcium 8.6 mg/dL (8.4-10.2)
--- NOTE | 2017-03-25 08:34 | Progress Note ---
Assessment and Plan Assessment and plan: --Acute respiratory failure/status post tracheostomy/ventilator dependent/ continue current management --Aspiration pneumonia/managed with multiple antibiotics per ID recommendations , continue current treatment --Status post cardiac arrest/anoxic encephalopathy/vegetative state --Large CVA with mass effect/anoxic brain injury --Perforated bowel/drainage of large fluid collection, continue supportive care --Peritonitis/gastric perforation/status post laparotomy/on TPN --A. fib with rapid ventricular rate/continue amiodarone --Sepsis/recurrent enterococcal infection/ID following/continue current antibiotics --Hypotension/septic shock requiring Levophed, closely monitor --End-stage renal disease; on hemodialysis, nephrology following --Multiple sacral decubiti stage III to stage IV, post debridement, continue wound care --Severe protein calorie malnutrition; continue TPN, supportive care --DO NOT RESUSCITATE status Very poor prognosis, family aware, recommend hospice, family not willing Unable to place in LTAC/SNF, Multiple social issues As the monitor the patient and adjust the management as needed Plan of care discussed with the patient's nurse and case management History Interval history: Since seen and examined Unresponsive Clinically no change Vital signs reviewed Hospitalist Physical - Constitutional Vitals: Temp Pulse Resp BP Pulse Ox 99.2 F 101 H 17 103/59 91 03/25/17 03:25 03/25/17 08:15 03/25/17 08:15 03/25/17 08:15 03/25/17 08:15 General appearance: Present: no acute distress, cachectic, other (spontaneous opening of eyes, unresponsive) - EENT Eyes: Present: PERRL, EOM intact - Respiratory Respiratory effort: normal Respiratory: bilateral: diminished, rales, negative: rhonchi, wheezing - Cardiovascular Rhythm: regular Heart Sounds: Present: S1 & S2 - Extremities Extremities: no ischemia Extremity abnormal: edema - Abdominal General gastrointestinal: soft, non-tender, non-distended, normal bowel sounds - Integumentary Integumentary: Present: clear, warm - Psychiatric Psychiatric: other (unresponsive) - Neurologic Neurologic: other (unresponsive) Results - Labs CBC & Chem 7: 03/23/17 05:30 03/25/17 05:15 Labs: Laboratory Last Values WBC 10.4 K/mm3 (4.5-11.0) 03/23/17 05:30 RBC 2.50 M/mm3 (3.65-5.03) L 03/23/17 05:30 Hgb 8.0 gm/dl (10.1-14.3) L 03/23/17 05:30 Hct 24.1 % (30.3-42.9) L 03/23/17 05:30 MCV 96 fl (79-97) 03/23/17 05:30 MCH 32 pg (28-32) 03/23/17 05:30 MCHC 33 % (30-34) 03/23/17 05:30 RDW 22.2 % (13.2-15.2) H 03/23/17 05:30 Plt Count 183 K/mm3 (140-440) 03/23/17 05:30 Lymph % (Auto) 20.0 % (13.4-35.0) 03/23/17 05:30 [place] % (Auto) 5.9 % (0.0-7.3) 03/23/17 05:30 Eos % (Auto) 0.8 % (0.0-4.3) 03/23/17 05:30 Baso % (Auto) 1.0 % (0.0-1.8) 03/23/17 05:30 Lymph # 2.1 K/mm3 (1.2-5.4) 03/23/17 05:30 [place] # 0.6 K/mm3 (0.0-0.8) 03/23/17 05:30 Eos # 0.1 K/mm3 (0.0-0.4) 03/23/17 05:30 Baso # 0.1 K/mm3 (0.0-0.1) 03/23/17 05:30 Add Manual Diff Complete 03/14/17 14:30 Total Counted 100 03/14/17 14:30 Seg Neutrophils % 72.3 % (40.0-70.0) H 03/23/17 05:30 Seg Neuts % (Manual) 70.0 % (40.0-70.0) 03/14/17 14:30 Band Neutrophils % 0 % 03/14/17 14:30 Lymphocytes % (Manual) 13.0 % (13.4-35.0) L 03/14/17 14:30 Reactive Lymphs % (Man) 1.0 % 03/14/17 14:30 Monocytes % (Manual) 15.0 % (0.0-7.3) H 03/14/17 14:30 Eosinophils % (Manual) 1.0 % (0.0-4.3) 03/14/17 14:30 Basophils % (Manual) 0 % (0.0-1.8) 03/14/17 14:30 Metamyelocytes % 0 % 03/14/17 14:30 Myelocytes % 0 % 03/14/17 14:30 Promyelocytes % 0 % 03/14/17 14:30 Blast Cells % 0 % 03/14/17 14:30 Nucleated RBC % Not Reportable 03/14/17 14:30 Seg Neutrophils # 7.5 K/mm3 (1.8-7.7) 03/23/17 05:30 Seg Neutrophils # Man 12.3 K/mm3 (1.8-7.7) H 03/14/17 14:30 Band Neutrophils # 0.0 K/mm3 03/14/17 14:30 Lymphocytes # (Manual) 2.3 K/mm3 (1.2-5.4) 03/14/17 14:30 Abs React Lymphs (Man) 0.2 K/mm3 03/14/17 14:30 Monocytes # (Manual) 2.6 K/mm3 (0.0-0.8) H 03/14/17 14:30 Eosinophils # (Manual) 0.2 K/mm3 (0.0-0.4) 03/14/17 14:30 Basophils # (Manual) 0.0 K/mm3 (0.0-0.1) 03/14/17 14:30 Metamyelocytes # 0.0 K/mm3 03/14/17 14:30 Myelocytes # 0.0 K/mm3 03/14/17 14:30 Promyelocytes # 0.0 K/mm3 03/14/17 14:30 Blast Cells # 0.0 K/mm3 03/14/17 14:30 Pathologist Review 09/13/16 04:00 WBC Morphology Not Reportable 03/14/17 14:30 Hypersegmented Neuts Not Reportable 03/14/17 14:30 Hyposegmented Neuts Not Reportable 03/14/17 14:30 Hypogranular Neuts Not Reportable 03/14/17 14:30 Smudge Cells Not Reportable 03/14/17 14:30 Toxic Granulation Not Reportable 03/14/17 14:30 Toxic Vacuolation Not Reportable 03/14/17 14:30 Dohle Bodies Not Reportable 03/14/17 14:30 Pelger-Huet Anomaly Not Reportable 03/14/17 14:30 Jasmina Rods Not Reportable 03/14/17 14:30 Platelet Estimate Consistent w auto 03/14/17 14:30 Clumped Platelets Not Reportable 03/14/17 14:30 Plt Clumps, EDTA Not Reportable 03/14/17 14:30 Large Platelets Not Reportable 03/14/17 14:30 Giant Platelets Not Reportable 03/14/17 14:30 Platelet Satelliting Not Reportable 03/14/17 14:30 Plt Morphology Comment Not Reportable 03/14/17 14:30 RBC Morphology Not Reportable 03/14/17 14:30 Dimorphic RBCs Not Reportable 03/14/17 14:30 Polychromasia Not Reportable 03/14/17 14:30 Hypochromasia 2+ 03/14/17 14:30 Poikilocytosis Not Reportable 03/14/17 14:30 Anisocytosis 1+ 03/14/17 14:30 Microcytosis Not Reportable 03/14/17 14:30 Macrocytosis Not Reportable 03/14/17 14:30 Spherocytes Not Reportable 03/14/17 14:30 Pappenheimer Bodies Not Reportable 03/14/17 14:30 Sickle Cells Not Reportable 03/14/17 14:30 Target Cells Not Reportable 03/14/17 14:30 Tear Drop Cells Not Reportable 03/14/17 14:30 Ovalocytes Not Reportable 03/14/17 14:30 Stomatocytes 2+ 03/14/17 14:30 Helmet Cells Not Reportable 03/14/17 14:30 [place] Bodies Not Reportable 03/14/17 14:30 [place] Rings Not Reportable 03/14/17 14:30 Chuck Cells Not Reportable 03/14/17 14:30 Bite Cells Not Reportable 03/14/17 14:30 Crenated Cell Not Reportable 03/14/17 14:30 Elliptocytes Not Reportable 03/14/17 14:30 Acanthocytes (Spur) Not Reportable 03/14/17 14:30 Rouleaux Not Reportable 03/14/17 14:30 Hemoglobin C Crystals Not Reportable 03/14/17 14:30 Schistocytes Not Reportable 03/14/17 14:30 Malaria parasites Not Reportable 03/14/17 14:30 ESR > 140.0 mm/Hr (0-20) 09/08/16 11:48 Jun Bodies Not Reportable 03/14/17 14:30 Hem Pathologist Commnt No 03/14/17 14:30 PT 15.4 Sec. (12.2-14.9) H 01/13/17 15:50 INR 1.16 (0.87-1.13) H 01/13/17 15:50 APTT 33.0 Sec. (24.2-36.6) 10/09/16 03:45 Thrombin Time 16.8 Sec. (15.1-19.6) 09/03/16 00:10 Fibrinogen 750 mg/dl (211-480) H 09/08/16 11:48 Lupus Anticoagulant see below 09/12/16 09:59 LA PTT Baseline See scanned report 09/12/16 09:59 dRVVT Confirm Interp Positive (Negative) H 09/12/16 09:59 dRVVT Screen 50:50 See scanned report 09/12/16 09:59 dRVVT Mix Interpret See scanned report 09/12/16 09:59 Protein C Antigen 122 % (70-140) 09/08/16 15:35 Free Protein S 97 % normal (50-147) 09/08/16 15:35 Total Protein S 109 % (70-140) 09/08/16 15:35 Antithrombin III Ag 100 % (80-120) 09/08/16 15:35 Heparin Anti-Xa, Unfract Negative (Negative) 09/29/16 13:35 Factor V Activity 182 % (65-150) H 09/08/16 15:35 POC ABG pH 7.518 (7.35-7.45) H 03/03/17 20: ABG pH 7.450 pH Units (7.350-7.450) 12/05/16 Unknown POC ABG pCO2 28.8 (35-45) L 03/03/17 20: ABG pCO2 29.6 mm Hg 12/05/16 Unknown POC ABG pO2 61 (80-105) L 03/03/17 20: ABG pO2 75.2 mm Hg (80.0-90.0) L 12/05/16 Unknown POC ABG HCO3 23.4 03/03/17 20:17 ABG HCO3 20.1 mmol/L (20.0-26.0) 12/05/16 Unknown POC ABG Total CO2 24 03/03/17 20: POC ABG O2 Sat 94 03/03/17 20: ABG O2 Saturation 96.8 % (95.0-99.0) 12/05/16 Unknown ABG O2 Content 9.9 (0.0-44) 12/05/16 Unknown POC ABG Base Excess 0 03/03/17 20: ABG Base Excess -3.4 mmol/L (-2.0-3.0) L 12/05/16 Unknown ABG Hemoglobin 7.4 gm/dl (12.0-16.0) L 12/05/16 Unknown ABG Carboxyhemoglobin 1.8 % (0.0-5.0) 12/05/16 Unknown ABG Methemoglobin 0.6 % (0.0-1.5) 12/05/16 Unknown Oxyhemoglobin 94.5 % (95.0-99.0) L 12/05/16 Unknown FiO2 40 % 03/03/17 20:17 Sodium 137 mmol/L (137-145) 03/25/17 05:15 Potassium 3.7 mmol/L (3.6-5.0) 03/25/17 05:15 Chloride 98.7 mmol/L (98-107) 03/25/17 05:15 Carbon Dioxide 29 mmol/L (22-30) 03/25/17 05:15 Anion Gap 13 mmol/L 03/25/17 05:15 BUN 15 mg/dL (7-17) 03/25/17 05:15 Creatinine 1.3 mg/dL (0.7-1.2) H 03/25/17 05:15 Estimated GFR 53 ml/min 03/25/17 05:15 BUN/Creatinine Ratio 12 % 03/25/17 05:15 Glucose 96 mg/dL (65-100) 03/25/17 05:15 POC Glucose 110 (70-105) H 03/25/17 05:19 Osmolality 351 Mosm/kg 09/16/16 11:47 Lactic Acid 2.30 mmol/L (0.7-2.0) H* 01/09/17 08:22 Calcium 8.6 mg/dL (8.4-10.2) 03/25/17 05:15 Ionized Calcium 6.0 mg/dL (4.8-5.6) H 02/15/17 19:08 Phosphorus 2.70 mg/dL (2.5-4.5) D 03/25/17 05:15 Magnesium 1.90 mg/dL (1.7-2.3) 03/25/17 05:15 Total Bilirubin 0.40 mg/dL (0.1-1.2) 03/20/17 Unknown Direct Bilirubin 0.2 mg/dL (0-0.2) 01/28/17 04:00 Indirect Bilirubin 0.3 mg/dL 01/28/17 04:00 AST 11 units/L (5-40) 03/20/17 Unknown ALT 6 units/L (7-56) L 03/20/17 Unknown Alkaline Phosphatase 97 units/L (35-129) 03/20/17 Unknown Ammonia 27.0 umol/L (25-60) 09/07/16 08:37 Lactate Dehydrogenase 170 units/L (91-180) 01/13/17 15:50 Total Creatine Kinase 121 units/L (30-135) 09/29/16 20:12 CK-MB (CK-2) < 1.0 ng/mL (0.0-4.0) 09/29/16 20:12 CK-MB (CK-2) Rel Index 0.8 (0-4) 09/29/16 20:12 Troponin T 0.204 ng/mL (0.00-0.029) H* 09/29/16 20:12 C-Reactive Protein 19.50 mg/dL (0.00-1.30) H 03/14/17 12:51 Total Protein 6.9 g/dL (6.3-8.2) 03/20/17 Unknown Albumin 0.9 g/dL (3.9-5) L 03/20/17 Unknown Albumin/Globulin Ratio 0.2 % 03/20/17 Unknown Prealbumin 0.110 g/L (0.200-0.400) L 12/29/16 05:15 Triglycerides 94 mg/dL (2-149) 03/20/17 Unknown Cholesterol 31 mg/dL (50-199) L 09/29/16 20:12 LDL Cholesterol Direct 4 mg/dL (50-130) L 09/29/16 20:12 HDL Cholesterol 3 mg/dL (40-59) L 09/29/16 20:12 Cholesterol/HDL Ratio 10.33 % 09/29/16 20:12 Angiotensin Convert Enz See scanned report 09/08/16 11:48 Renin 0.99 ng/mL/h (0.25-5.82) 10/07/16 10:56 Aldosterone <1 ng/dL () 10/07/16 10:56 Aldosterone/Renin Dir see below 10/07/16 10:56 Serotonin Release Assay See scanned report 09/29/16 13:35 25-OH Vitamin D Total 13 ng/mL (30-100) L 02/15/17 19:08 25-Hydroxy Vitamin D2 . 02/15/17 19:08 25-Hydroxy Vitamin D3 . 02/15/17 19:08 TSH 1.010 mlU/mL (0.270-4.200) 09/07/16 08:37 HCG, Qual Negative (Negative) 09/03/16 00:10 PTH Intact 10.88 pg/mL (15-65) L 02/15/17 19:08 Total Cortisol 18.2 mcg/dL () 02/02/17 20:09 Urine Color Yellow (Yellow) 11/05/16 13:09 Urine Turbidity Clear (Clear) 11/05/16 13:09 Urine pH 9.0 (5.0-7.0) H 11/05/16 13:09 Ur Specific [place] 1.011 (1.003-1.030) 11/05/16 13:09 Urine Protein 100 mg/dl mg/dL (Negative) 11/05/16 13:09 Urine Glucose (UA) Neg mg/dL (Negative) 11/05/16 13:09 Urine Ketones Neg mg/dL (Negative) 11/05/16 13:09 Urine Blood Neg (Negative) 11/05/16 13:09 Urine Nitrite Neg (Negative) 11/05/16 13:09 Urine Bilirubin Neg (Negative) 11/05/16 13:09 Urine Urobilinogen < 2.0 mg/dL (<2.0) 11/05/16 13:09 Ur Leukocyte Esterase Neg (Negative) 11/05/16 13:09 Urine WBC (Auto) 4.0 /HPF (0.0-6.0) 11/05/16 13:09 Urine RBC (Auto) 1.0 /HPF (0.0-6.0) 11/05/16 13:09 U Epithel Cells (Auto) 1.0 /HPF (0-13.0) 10/07/16 18:30 Urine Bacteria (Auto) 4+ /HPF (Negative) 11/05/16 13:09 Urine WBC Clumps 2+ /HPF 09/07/16 02:47 Hyaline Casts 4 /LPF 09/07/16 02:47 Urine Mucus Few /HPF 10/07/16 18:30 Urine Yeast (Budding) 3+ /HPF 10/07/16 18:30 Urine Eosinophils None seen (None Seen) 09/07/16 16:00 Urine Total Volume 950 11/12/16 10:18 Urine Creatinine 19.7 mg/dL (0.1-20.0) 11/12/16 10:18 Height (in) 65.0 inches 11/12/16 10:18 Weight (lb) 181.0 lbs 11/12/16 10:18 Creatinine Clearance 5 11/12/16 10:18 Urine Sodium 36 mEq/L 09/16/16 19:19 Urine Total Protein 16 mg/dL (5-11.8) H 09/16/16 19:19 Fluid Type Pleural 01/13/17 12:10 Fluid Color Yellow 01/13/17 12:10 Fluid Appearance Hazy 01/13/17 12:10 Fluid WBC 182 /mm3 01/13/17 12:10 Fluid RBC 41 /mm3 01/13/17 12:10 Fluid Seg Neutrophils 85.0 % 01/13/17 12:10 Fluid Lymphocytes 8.0 % 01/13/17 12:10 Fluid Reactive Lymphs 0 % 01/13/17 12:10 Fluid Monocytes 6.0 % 01/13/17 12:10 Fluid Eosinophils 1.0 % 01/13/17 12:10 Fluid Basophils 0 % 01/13/17 12:10 Fluid Total Protein 3.0 (15.0-45.0) L 01/13/17 12:10 Fluid LDH 1322 01/13/17 12:10 Fluid Comment Diff performed 01/13/17 12:10 Vancomycin Trough 2.3 ug/mL (5.0-20.0) L 09/21/16 13:00 Random Vancomycin 26.0 ug/mL (0-40.0) 03/13/17 05:39 Urine Opiates Screen Presumptive negative 09/03/16 15:11 Urine Methadone Screen Presumptive positive 09/03/16 15:11 Ur Barbiturates Screen Presumptive positive 09/03/16 15:11 Ur Phencyclidine Scrn Presumptive negative 09/03/16 15:11 Ur Amphetamines Screen Presumptive negative 09/03/16 15:11 U Benzodiazepines Scrn Presumptive negative 09/03/16 15:11 Urine Cocaine Screen Presumptive negative 09/03/16 15:11 U Marijuana (THC) Screen Presumptive positive 09/03/16 15:11 Drugs of Abuse Note Disclamer 09/03/16 15:11 Rheumatoid Factor 24 IU/ml (0-13) H 09/08/16 11:48 SAHIL Screen Negative (Negative) 09/07/16 09:20 Proteinase 3 (PR3) Ab <1.0 AI (<1.0) 09/07/16 09:20 Myeloperoxidase Ab <1.0 AI (<1.0) 09/07/16 09:20 Sjogren's Antibody <1.0 AI (<1.0) 09/08/16 15:35 Scl-70 Scleroderma Ab <1.0 AI (<1.0) 09/08/16 15:35 Centromere B Antibody <1.0 AI (<1.0) 09/08/16 12:02 Heparin-induced Plt Ab Negative (Negative) 09/29/16 13:35 UF Heparin High Dose 11 % Release 09/29/16 13:35 SUDHIR UFH Low Dose 0.1 6 % Release 09/29/16 13:35 SUDHIR UFH Low Dose 0.5 8 % Release 09/29/16 13:35 Cardiolipid IgG Ab <14 GPL (<=14) 09/12/16 09:59 Cardiolipid IgA Ab <11 APL (<=11) 09/12/16 09:59 Cardiolipid IgM Ab <12 MPL (<=12) 09/12/16 09:59 Complement C3 148 mg/dL (90-180) 09/07/16 09:20 Complement C4 58 mg/dL (16-47) H 09/07/16 09:20 RPR Nonreactive (Nonreactive) 09/08/16 11:48 Hepatitis A IgM Ab Non-reactive (NonReactive) 09/24/16 14:40 Hep Bs Antigen Non-reactive (Negative) 09/24/16 14:40 Hep B Core IgM Ab Non-reactive (NonReactive) 09/24/16 14:40 Hepatitis C Antibody Non-reactive (NonReactive) 09/24/16 14:40 HIV 1&2 Antibody Rapid Non react (Non React) 09/08/16 11:48 HIV P24 Antigen Non react (Non React) 09/08/16 11:48 Miscellaneous Test Flexitest 1 H 01/09/17 18:45 Blood Type A POSITIVE 03/20/17 16:00 Antibody Screen Negative 03/20/17 16:00 DELORIS Antibody Screen Negative 11/24/16 11:20 Crossmatch See Detail 03/20/17 16:00
[2017-03-25] MEDS: PEPCID IV SCH (09:12)
[2017-03-25] MEDS: HEPARIN SUB-Q SCH ×2 (09:12→20:27)
[2017-03-25] MEDS: DUONEB *Not for PRN Use IH SCH ×3 (09:49→21:21)
[2017-03-25] MEDS: CORDARONE 900 MG in D5W 482 ML IV SCH (13:20)
--- NOTE | 2017-03-25 14:15 | Progress Note ---
Assessment and Plan Acute Hypoxemic Respiratory Failure (now with exacerbation and back on MVS) Hypertension (unable to receive p.o. 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 SBE - stop Amiodarone drip once rate better controlled - continue to hold tube feeds due to continued intolerance; continue reglan at 10mg IV q8h - continue NGT to LIS - continue TPN - remains on amiodarone drip for persistent tachycardia - prn CXR's at this point - appreciate surgery input - continue fentanyl patch for pain issues especially s/p debridement - continue wound care per WCT and RN's (she is s/p surgical debridement) - continue anti-infectives per ID recs - prn CRP & lactate levels if clinically indicated (Follow WBC also) - continue TPN administration (Change to PPN re: vascular access issues) - continue robinul & scopolamine for secretion control - continue to wean FiO2 for sats > 94% - continue bronchodilators and pulmonary toilet - VAP bundle addressed - continue to follow electrolytes and correct as necessary - continue GI & VTE prophylaxis - Continue flu & pneumovax per protocol .....she remains critically ill on life sustaining interventions including MVS and at risk for further deterioration including ....30' CCT ....care plan discussed at length during team rounds ...[facility] prognosis remains guarded and this has intermittently been conveyed to family Subjective Date of service: 03/25/17 Principal diagnosis: Acute resp failure on MVS; S/P Acute CVA; Acute Encephalopathy; JUANITA Interval history: Patient is seen today for: Acute resp failure on MVS; S/P Acute CVA; Acute Encephalopathy; JUANITA Seen and examined at bedside; 24hour events reviewed; nursing and respiratory care staff consulted; no adverse overnight events reported to me; remains on MVS ; remains on MVS; no gross bleeding; no seizures; no emesis or overt aspiration Objective Vital Signs - 12hr 03/25/17 03/25/17 03/25/17 02:15 02:22 02:30 Temperature Pulse Rate 99 H 99 H 109 H Pulse Rate [ From Monitor] Respiratory 12 13 Rate Blood Pressure 99/59 99/59 104/62 O2 Sat by Pulse 100 100 Oximetry 03/25/17 03/25/17 03/25/17 02:45 03:00 03:15 Temperature Pulse Rate 108 H 105 H 104 H Pulse Rate [ From Monitor] Respiratory 14 15 14 Rate Blood Pressure 104/62 98/62 98/62 O2 Sat by Pulse 100 100 Oximetry 03/25/17 03/25/17 03/25/17 03:25 03:30 03:45 Temperature 99.2 F Pulse Rate 103 H 104 H Pulse Rate [ From Monitor] Respiratory 15 14 Rate Blood Pressure 104/62 104/62 O2 Sat by Pulse 100 100 Oximetry 03/25/17 03/25/17 03/25/17 04:00 04:15 04:30 Temperature Pulse Rate 103 H 100 H 101 H Pulse Rate [ From Monitor] Respiratory 11 L 14 14 Rate Blood Pressure 102/63 102/63 96/61 O2 Sat by Pulse 100 100 Oximetry 03/25/17 03/25/17 03/25/17 04:45 05:00 05:15 Temperature Pulse Rate 100 H 108 H 108 H Pulse Rate [ From Monitor] Respiratory 17 13 12 Rate Blood Pressure 96/61 108/71 108/71 O2 Sat by Pulse 100 99 99 Oximetry 03/25/17 03/25/17 03/25/17 05:30 05:45 06:00 Temperature Pulse Rate 108 H 105 H 102 H Pulse Rate [ From Monitor] Respiratory 15 23 13 Rate Blood Pressure 111/67 111/67 97/56 O2 Sat by Pulse 100 96 100 Oximetry 03/25/17 03/25/17 03/25/17 06:15 06:30 06:45 Temperature Pulse Rate 105 H 102 H 103 H Pulse Rate [ From Monitor] Respiratory 20 16 13 Rate Blood Pressure 97/56 94/54 94/54 O2 Sat by Pulse 98 100 Oximetry 03/25/17 03/25/17 03/25/17 07:00 07:15 07:30 Temperature Pulse Rate 103 H 102 H 100 H Pulse Rate [ From Monitor] Respiratory 13 14 17 Rate Blood Pressure 100/62 100/62 95/49 O2 Sat by Pulse 100 100 90 Oximetry 03/25/17 03/25/17 03/25/17 07:45 08:00 08:15 Temperature 99.9 F H Pulse Rate 105 H 105 H 101 H Pulse Rate [ 105 H From Monitor] Respiratory 21 18 17 Rate Blood Pressure 95/49 103/59 103/59 O2 Sat by Pulse 89 98 91 Oximetry 03/25/17 03/25/17 03/25/17 08:30 08:45 08:57 Temperature Pulse Rate 105 H 106 H 105 H Pulse Rate [ From Monitor] Respiratory 17 11 L Rate Blood Pressure 92/55 92/55 103/59 O2 Sat by Pulse 92 100 Oximetry 03/25/17 03/25/17 03/25/17 09:00 09:15 09:30 Temperature Pulse Rate 88 114 H 108 H Pulse Rate [ From Monitor] Respiratory 15 12 15 Rate Blood Pressure 113/72 113/72 91/54 O2 Sat by Pulse 100 99 98 Oximetry 03/25/17 03/25/17 03/25/17 09:44 09:45 10:00 Temperature Pulse Rate 105 H 107 H 110 H Pulse Rate [ From Monitor] Respiratory 22 21 21 Rate Blood Pressure 103/59 91/54 102/61 O2 Sat by Pulse 100 100 100 Oximetry 03/25/17 03/25/17 12:00 13:22 Temperature 99.8 F H Pulse Rate 101 H Pulse Rate [ From Monitor] Respiratory Rate Blood Pressure 102/62 O2 Sat by Pulse Oximetry Constitutional: appears uncomfortable, other (not tracking) Eyes: non-icteric, other (tracheostomy tube in midline of neck) ENT: oropharynx moist, oropharyngeal exudate pre, other (midline tracheostomy tube) Neck: supple, no lymphadenopathy, no JVD, other (no thyromegaly) Effort: mildly labored Ascultation: Bilateral: rhonchi (and referred upper airway sounds) Percussion: Bilateral: not dull Cardiovascular: regular rate and rhythm, other (no rubs / murmurs) Gastrointestinal: hypoactive bowel sounds, soft, non-tender, non-distended, other (RLQ & LUQ stomas with colostomy bags) Integumentary: decubitus ulcer (sacral; stage 4 s/p surgical debridement), other (no rash; no cellulitis; poor turgor) Extremities: no cyanosis, pulses normal, no ischemia or petechiae, edema (1+ bilaterally) Neurologic: pupils equal and round, unable to assess, other (encephalopathic) Psychiatric: other (unable to assess) CBC and BMP: 03/27/17 05:30 03/29/17 04:30 ABG, PT/INR, D-dimer: ABG POC ABG pH 7.518 (7.35-7.45) H 03/03/17 20:17 ABG pH 7.450 pH Units (7.350-7.450) 12/05/16 Unknown POC ABG pCO2 28.8 (35-45) L 03/03/17 20: ABG pCO2 29.6 mm Hg 12/05/16 Unknown POC ABG pO2 61 (80-105) L 03/03/17 20: ABG pO2 75.2 mm Hg (80.0-90.0) L 12/05/16 Unknown POC ABG HCO3 23.4 03/03/17 20: POC ABG Total CO2 24 03/03/17 20:17 POC ABG O2 Sat 94 03/03/17 20: ABG O2 Saturation 96.8 % (95.0-99.0) 12/05/16 Unknown PT/INR, D-dimer PT 15.4 Sec. (12.2-14.9) H 01/13/17 15:50 INR 1.16 (0.87-1.13) H 01/13/17 15:50 Abnormal lab findings: Abnormal Labs 09/03/16 09/03/16 09/03/16 00:03 00:10 00:10 WBC 13.9 H RBC 5.95 H Hgb Hct 44.0 H MCV 74 L MCH 22 L MCHC RDW 17.5 H Plt Count Lymph % (Auto) [place] % (Auto) Lymph # [place] # Baso # Seg Neutrophils % Seg Neuts % (Manual) Lymphocytes % (Manual) 54.0 H Monocytes % (Manual) Eosinophils % (Manual) Basophils % (Manual) Nucleated RBC % Seg Neutrophils # Seg Neutrophils # Man Lymphocytes # (Manual) 7.5 H Monocytes # (Manual) Eosinophils # (Manual) Basophils # (Manual) PT INR Fibrinogen dRVVT Confirm Interp Factor V Activity POC ABG pH POC ABG pCO2 POC ABG pO2 ABG pO2 ABG HCO3 ABG Base Excess ABG Hemoglobin Oxyhemoglobin Sodium Potassium 2.8 L* Chloride Carbon Dioxide 21 L BUN Creatinine 1.7 H Glucose 159 H POC Glucose 177 H Lactic Acid Calcium Ionized Calcium Phosphorus Magnesium Direct Bilirubin AST ALT Alkaline Phosphatase Lactate Dehydrogenase Troponin T C-Reactive Protein Total Protein Albumin Prealbumin Triglycerides Cholesterol LDL Cholesterol Direct HDL Cholesterol 25-OH Vitamin D Total PTH Intact Urine pH Urine WBC (Auto) Urine Creatinine Urine Total Protein Fluid Total Protein Vancomycin Trough Rheumatoid Factor Complement C4 Miscellaneous Test Crossmatch 09/03/16 09/03/16 09/03/16 12:12 15:07 16:20 WBC RBC Hgb Hct MCV MCH MCHC RDW Plt Count Lymph % (Auto) [place] % (Auto) Lymph # [place] # Baso # Seg Neutrophils % Seg Neuts % (Manual) Lymphocytes % (Manual) Monocytes % (Manual) Eosinophils % (Manual) Basophils % (Manual) Nucleated RBC % Seg Neutrophils # Seg Neutrophils # Man Lymphocytes # (Manual) Monocytes # (Manual) Eosinophils # (Manual) Basophils # (Manual) PT INR Fibrinogen dRVVT Confirm Interp Factor V Activity POC ABG pH 7.452 H POC ABG pCO2 POC ABG pO2 ABG pO2 ABG HCO3 ABG Base Excess ABG Hemoglobin Oxyhemoglobin Sodium Potassium Chloride Carbon Dioxide BUN Creatinine Glucose POC Glucose 178 H Lactic Acid Calcium Ionized Calcium Phosphorus 2.20 L Magnesium 1.60 L Direct Bilirubin AST ALT Alkaline Phosphatase Lactate Dehydrogenase Troponin T C-Reactive Protein Total Protein Albumin Prealbumin Triglycerides Cholesterol LDL Cholesterol Direct HDL Cholesterol 25-OH Vitamin D Total PTH Intact Urine pH Urine WBC (Auto) Urine Creatinine Urine Total Protein Fluid Total Protein Vancomycin Trough Rheumatoid Factor Complement C4 Miscellaneous Test Crossmatch 09/03/16 09/03/16 09/03/16 17:57 17:58 23:50 WBC RBC Hgb Hct MCV MCH MCHC RDW Plt Count Lymph % (Auto) [place] % (Auto) Lymph # [place] # Baso # Seg Neutrophils % Seg Neuts % (Manual) Lymphocytes % (Manual) Monocytes % (Manual) Eosinophils % (Manual) Basophils % (Manual) Nucleated RBC % Seg Neutrophils # Seg Neutrophils # Man Lymphocytes # (Manual) Monocytes # (Manual) Eosinophils # (Manual) Basophils # (Manual) PT INR Fibrinogen dRVVT Confirm Interp Factor V Activity POC ABG pH POC ABG pCO2 POC ABG pO2 ABG pO2 ABG HCO3 ABG Base Excess ABG Hemoglobin Oxyhemoglobin Sodium Potassium Chloride Carbon Dioxide BUN Creatinine Glucose POC Glucose 162 H 145 H Lactic Acid Calcium Ionized Calcium Phosphorus 2.30 L Magnesium Direct Bilirubin AST ALT Alkaline Phosphatase Lactate Dehydrogenase Troponin T C-Reactive Protein Total Protein Albumin Prealbumin Triglycerides Cholesterol LDL Cholesterol Direct HDL Cholesterol 25-OH Vitamin D Total PTH Intact Urine pH Urine WBC (Auto) Urine Creatinine Urine Total Protein Fluid Total Protein Vancomycin Trough Rheumatoid Factor Complement C4 Miscellaneous Test Crossmatch 09/04/16 09/04/16 09/04/16 03:31 03:31 05:42 WBC RBC Hgb 9.7 L D Hct MCV 72 L MCH 23 L MCHC RDW 17.5 H Plt Count Lymph % (Auto) 11.1 L [place] % (Auto) Lymph # [place] # Baso # Seg Neutrophils % 84.3 H Seg Neuts % (Manual) Lymphocytes % (Manual) Monocytes % (Manual) Eosinophils % (Manual) Basophils % (Manual) Nucleated RBC % Seg Neutrophils # 8.9 H Seg Neutrophils # Man Lymphocytes # (Manual) Monocytes # (Manual) Eosinophils # (Manual) Basophils # (Manual) PT INR Fibrinogen dRVVT Confirm Interp Factor V Activity POC ABG pH POC ABG pCO2 POC ABG pO2 ABG pO2 ABG HCO3 ABG Base Excess ABG Hemoglobin Oxyhemoglobin Sodium 135 L Potassium 2.9 L* Chloride 97.2 L Carbon Dioxide 19 L BUN Creatinine 1.7 H Glucose 170 H POC Glucose 152 H Lactic Acid Calcium Ionized Calcium Phosphorus Magnesium Direct Bilirubin AST ALT Alkaline Phosphatase Lactate Dehydrogenase Troponin T C-Reactive Protein Total Protein Albumin Prealbumin Triglycerides 160 H Cholesterol LDL Cholesterol Direct HDL Cholesterol 31 L 25-OH Vitamin D Total PTH Intact Urine pH Urine WBC (Auto) Urine Creatinine Urine Total Protein Fluid Total Protein Vancomycin Trough Rheumatoid Factor Complement C4 Miscellaneous Test Crossmatch 09/04/16 09/04/16 09/04/16 11:34 17:46 23:29 WBC RBC Hgb Hct MCV MCH MCHC RDW Plt Count Lymph % (Auto) [place] % (Auto) Lymph # [place] # Baso # Seg Neutrophils % Seg Neuts % (Manual) Lymphocytes % (Manual) Monocytes % (Manual) Eosinophils % (Manual) Basophils % (Manual) Nucleated RBC % Seg Neutrophils # Seg Neutrophils # Man Lymphocytes # (Manual) Monocytes # (Manual) Eosinophils # (Manual) Basophils # (Manual) PT INR Fibrinogen dRVVT Confirm Interp Factor V Activity POC ABG pH POC ABG pCO2 POC ABG pO2 ABG pO2 ABG HCO3 ABG Base Excess ABG Hemoglobin Oxyhemoglobin Sodium Potassium Chloride Carbon Dioxide BUN Creatinine Glucose POC Glucose 165 H 210 H 139 H Lactic Acid Calcium Ionized Calcium Phosphorus Magnesium Direct Bilirubin AST ALT Alkaline Phosphatase Lactate Dehydrogenase Troponin T C-Reactive Protein Total Protein Albumin Prealbumin Triglycerides Cholesterol LDL Cholesterol Direct HDL Cholesterol 25-OH Vitamin D Total PTH Intact Urine pH Urine WBC (Auto) Urine Creatinine Urine Total Protein Fluid Total Protein Vancomycin Trough Rheumatoid Factor Complement C4 Miscellaneous Test Crossmatch 09/05/16 09/05/16 09/05/16 04:05 04:05 05:38 WBC RBC Hgb Hct MCV 76 L D MCH 23 L MCHC RDW 17.8 H Plt Count Lymph % (Auto) [place] % (Auto) Lymph # [place] # Baso # Seg Neutrophils % Seg Neuts % (Manual) Lymphocytes % (Manual) Monocytes % (Manual) Eosinophils % (Manual) Basophils % (Manual) Nucleated RBC % Seg Neutrophils # Seg Neutrophils # Man Lymphocytes # (Manual) Monocytes # (Manual) Eosinophils # (Manual) Basophils # (Manual) PT INR Fibrinogen dRVVT Confirm Interp Factor V Activity POC ABG pH POC ABG pCO2 POC ABG pO2 ABG pO2 ABG HCO3 ABG Base Excess ABG Hemoglobin Oxyhemoglobin Sodium 134 L Potassium Chloride Carbon Dioxide 18 L BUN Creatinine 1.8 H Glucose 192 H POC Glucose 175 H Lactic Acid Calcium Ionized Calcium Phosphorus Magnesium Direct Bilirubin AST ALT Alkaline Phosphatase Lactate Dehydrogenase Troponin T C-Reactive Protein Total Protein Albumin Prealbumin Triglycerides Cholesterol LDL Cholesterol Direct HDL Cholesterol 25-OH Vitamin D Total PTH Intact Urine pH Urine WBC (Auto) Urine Creatinine Urine Total Protein Fluid Total Protein Vancomycin Trough Rheumatoid Factor Complement C4 Miscellaneous Test Crossmatch 09/05/16 09/05/16 09/05/16 11:38 17:48 23:22 WBC RBC Hgb Hct MCV MCH MCHC RDW Plt Count Lymph % (Auto) [place] % (Auto) Lymph # [place] # Baso # Seg Neutrophils % Seg Neuts % (Manual) Lymphocytes % (Manual) Monocytes % (Manual) Eosinophils % (Manual) Basophils % (Manual) Nucleated RBC % Seg Neutrophils # Seg Neutrophils # Man Lymphocytes # (Manual) Monocytes # (Manual) Eosinophils # (Manual) Basophils # (Manual) PT INR Fibrinogen dRVVT Confirm Interp Factor V Activity POC ABG pH POC ABG pCO2 POC ABG pO2 ABG pO2 ABG HCO3 ABG Base Excess ABG Hemoglobin Oxyhemoglobin Sodium Potassium Chloride Carbon Dioxide BUN Creatinine Glucose POC Glucose 164 H 186 H 195 H Lactic Acid Calcium Ionized Calcium Phosphorus Magnesium Direct Bilirubin AST ALT Alkaline Phosphatase Lactate Dehydrogenase Troponin T C-Reactive Protein Total Protein Albumin Prealbumin Triglycerides Cholesterol LDL Cholesterol Direct HDL Cholesterol 25-OH Vitamin D Total PTH Intact Urine pH Urine WBC (Auto) Urine Creatinine Urine Total Protein Fluid Total Protein Vancomycin Trough Rheumatoid Factor Complement C4 Miscellaneous Test Crossmatch 09/06/16 09/06/16 09/06/16 04:12 05:59 07:32 WBC RBC Hgb Hct MCV MCH MCHC RDW Plt Count Lymph % (Auto) [place] % (Auto) Lymph # [place] # Baso # Seg Neutrophils % Seg Neuts % (Manual) Lymphocytes % (Manual) Monocytes % (Manual) Eosinophils % (Manual) Basophils % (Manual) Nucleated RBC % Seg Neutrophils # Seg Neutrophils # Man Lymphocytes # (Manual) Monocytes # (Manual) Eosinophils # (Manual) Basophils # (Manual) PT INR Fibrinogen dRVVT Confirm Interp Factor V Activity POC ABG pH 7.514 H POC ABG pCO2 29.1 L POC ABG pO2 72 L ABG pO2 ABG HCO3 ABG Base Excess ABG Hemoglobin Oxyhemoglobin Sodium 133 L Potassium 3.4 L Chloride 94.9 L Carbon Dioxide 19 L BUN 30 H Creatinine 2.1 H Glucose 139 H POC Glucose 146 H Lactic Acid Calcium Ionized Calcium Phosphorus Magnesium Direct Bilirubin AST ALT Alkaline Phosphatase Lactate Dehydrogenase Troponin T C-Reactive Protein Total Protein Albumin Prealbumin Triglycerides Cholesterol LDL Cholesterol Direct HDL Cholesterol 25-OH Vitamin D Total PTH Intact Urine pH Urine WBC (Auto) Urine Creatinine Urine Total Protein Fluid Total Protein Vancomycin Trough Rheumatoid Factor Complement C4 Miscellaneous Test Crossmatch 09/06/16 09/06/16 09/06/16 11:57 17:58 19:02 WBC RBC Hgb Hct MCV MCH MCHC RDW Plt Count Lymph % (Auto) [place] % (Auto) Lymph # [place] # Baso # Seg Neutrophils % Seg Neuts % (Manual) Lymphocytes % (Manual) Monocytes % (Manual) Eosinophils % (Manual) Basophils % (Manual) Nucleated RBC % Seg Neutrophils # Seg Neutrophils # Man Lymphocytes # (Manual) Monocytes # (Manual) Eosinophils # (Manual) Basophils # (Manual) PT INR Fibrinogen dRVVT Confirm Interp Factor V Activity POC ABG pH 7.465 H POC ABG pCO2 32.0 L POC ABG pO2 ABG pO2 ABG HCO3 ABG Base Excess ABG Hemoglobin Oxyhemoglobin Sodium Potassium Chloride Carbon Dioxide BUN Creatinine Glucose POC Glucose 165 H 160 H Lactic Acid Calcium Ionized Calcium Phosphorus Magnesium Direct Bilirubin AST ALT Alkaline Phosphatase Lactate Dehydrogenase Troponin T C-Reactive Protein Total Protein Albumin Prealbumin Triglycerides Cholesterol LDL Cholesterol Direct HDL Cholesterol 25-OH Vitamin D Total PTH Intact Urine pH Urine WBC (Auto) Urine Creatinine Urine Total Protein Fluid Total Protein Vancomycin Trough Rheumatoid Factor Complement C4 Miscellaneous Test Crossmatch 09/06/16 09/07/16 09/07/16 23:45 02:47 02:47 WBC RBC Hgb Hct MCV MCH MCHC RDW Plt Count Lymph % (Auto) [place] % (Auto) Lymph # [place] # Baso # Seg Neutrophils % Seg Neuts % (Manual) Lymphocytes % (Manual) Monocytes % (Manual) Eosinophils % (Manual) Basophils % (Manual) Nucleated RBC % Seg Neutrophils # Seg Neutrophils # Man Lymphocytes # (Manual) Monocytes # (Manual) Eosinophils # (Manual) Basophils # (Manual) PT INR Fibrinogen dRVVT Confirm Interp Factor V Activity POC ABG pH POC ABG pCO2 POC ABG pO2 ABG pO2 ABG HCO3 ABG Base Excess ABG Hemoglobin Oxyhemoglobin Sodium Potassium Chloride Carbon Dioxide BUN Creatinine Glucose POC Glucose 204 H Lactic Acid Calcium Ionized Calcium Phosphorus Magnesium Direct Bilirubin AST ALT Alkaline Phosphatase Lactate Dehydrogenase Troponin T C-Reactive Protein Total Protein Albumin Prealbumin Triglycerides Cholesterol LDL Cholesterol Direct HDL Cholesterol 25-OH Vitamin D Total PTH Intact Urine pH Urine WBC (Auto) 68.0 H Urine Creatinine 106.1 H Urine Total Protein Fluid Total Protein Vancomycin Trough Rheumatoid Factor Complement C4 Miscellaneous Test Crossmatch 09/07/16 09/07/16 09/07/16 04:50 06:19 06:39 WBC RBC Hgb Hct MCV MCH MCHC RDW Plt Count Lymph % (Auto) [place] % (Auto) Lymph # [place] # Baso # Seg Neutrophils % Seg Neuts % (Manual) Lymphocytes % (Manual) Monocytes % (Manual) Eosinophils % (Manual) Basophils % (Manual) Nucleated RBC % Seg Neutrophils # Seg Neutrophils # Man Lymphocytes # (Manual) Monocytes # (Manual) Eosinophils # (Manual) Basophils # (Manual) PT INR Fibrinogen dRVVT Confirm Interp Factor V Activity POC ABG pH 7.457 H POC ABG pCO2 32.1 L POC ABG pO2 76 L ABG pO2 ABG HCO3 ABG Base Excess ABG Hemoglobin Oxyhemoglobin Sodium 132 L Potassium Chloride 94.7 L Carbon Dioxide BUN 53 H Creatinine 2.9 H Glucose 151 H POC Glucose 149 H Lactic Acid Calcium Ionized Calcium Phosphorus Magnesium Direct Bilirubin AST ALT Alkaline Phosphatase Lactate Dehydrogenase Troponin T C-Reactive Protein Total Protein Albumin Prealbumin Triglycerides Cholesterol LDL Cholesterol Direct HDL Cholesterol 25-OH Vitamin D Total PTH Intact Urine pH Urine WBC (Auto) Urine Creatinine Urine Total Protein Fluid Total Protein Vancomycin Trough Rheumatoid Factor Complement C4 Miscellaneous Test Crossmatch 09/07/16 09/07/16 09/07/16 09:20 11:43 11:43 WBC 19.4 H RBC Hgb 8.3 L Hct 26.4 L D MCV 72 L D MCH 22 L MCHC RDW 17.9 H Plt Count Lymph % (Auto) 8.5 L [place] % (Auto) Lymph # [place] # 1.0 H Baso # Seg Neutrophils % 85.8 H Seg Neuts % (Manual) Lymphocytes % (Manual) Monocytes % (Manual) Eosinophils % (Manual) Basophils % (Manual) Nucleated RBC % Seg Neutrophils # 16.6 H Seg Neutrophils # Man Lymphocytes # (Manual) Monocytes # (Manual) Eosinophils # (Manual) Basophils # (Manual) PT INR Fibrinogen dRVVT Confirm Interp Factor V Activity POC ABG pH POC ABG pCO2 POC ABG pO2 ABG pO2 ABG HCO3 ABG Base Excess ABG Hemoglobin Oxyhemoglobin Sodium 134 L Potassium Chloride 97.2 L Carbon Dioxide 20 L BUN 58 H Creatinine 2.9 H Glucose 147 H POC Glucose Lactic Acid Calcium Ionized Calcium Phosphorus 2.40 L Magnesium 2.40 H Direct Bilirubin AST ALT Alkaline Phosphatase Lactate Dehydrogenase Troponin T C-Reactive Protein Total Protein 5.8 L Albumin 2.2 L Prealbumin Triglycerides Cholesterol LDL Cholesterol Direct HDL Cholesterol 25-OH Vitamin D Total PTH Intact Urine pH Urine WBC (Auto) Urine Creatinine Urine Total Protein Fluid Total Protein Vancomycin Trough Rheumatoid Factor Complement C4 58 H Miscellaneous Test Crossmatch 09/07/16 09/07/16 09/07/16 11:50 16:00 17:31 WBC RBC Hgb Hct MCV MCH MCHC RDW Plt Count Lymph % (Auto) [place] % (Auto) Lymph # [place] # Baso # Seg Neutrophils % Seg Neuts % (Manual) Lymphocytes % (Manual) Monocytes % (Manual) Eosinophils % (Manual) Basophils % (Manual) Nucleated RBC % Seg Neutrophils # Seg Neutrophils # Man Lymphocytes # (Manual) Monocytes # (Manual) Eosinophils # (Manual) Basophils # (Manual) PT INR Fibrinogen dRVVT Confirm Interp Factor V Activity POC ABG pH POC ABG pCO2 POC ABG pO2 158 H ABG pO2 ABG HCO3 ABG Base Excess ABG Hemoglobin Oxyhemoglobin Sodium Potassium Chloride Carbon Dioxide BUN Creatinine Glucose POC Glucose 175 H Lactic Acid Calcium Ionized Calcium Phosphorus Magnesium Direct Bilirubin AST ALT Alkaline Phosphatase Lactate Dehydrogenase Troponin T C-Reactive Protein Total Protein Albumin Prealbumin Triglycerides Cholesterol LDL Cholesterol Direct HDL Cholesterol 25-OH Vitamin D Total PTH Intact Urine pH Urine WBC (Auto) Urine Creatinine 66.3 H Urine Total Protein Fluid Total Protein Vancomycin Trough Rheumatoid Factor Complement C4 Miscellaneous Test Crossmatch 09/07/16 09/08/16 09/08/16 23:50 05:46 06:18 WBC 17.8 H RBC 3.58 L Hgb 8.1 L Hct 25.5 L MCV 71 L MCH 23 L MCHC RDW 18.4 H Plt Count Lymph % (Auto) [place] % (Auto) Lymph # [place] # Baso # Seg Neutrophils % Seg Neuts % (Manual) 92.0 H Lymphocytes % (Manual) 6.0 L Monocytes % (Manual) Eosinophils % (Manual) Basophils % (Manual) Nucleated RBC % Seg Neutrophils # Seg Neutrophils # Man 16.4 H Lymphocytes # (Manual) 1.1 L Monocytes # (Manual) Eosinophils # (Manual) Basophils # (Manual) PT INR Fibrinogen dRVVT Confirm Interp Factor V Activity POC ABG pH POC ABG pCO2 34.3 L POC ABG pO2 71 L ABG pO2 ABG HCO3 ABG Base Excess ABG Hemoglobin Oxyhemoglobin Sodium Potassium Chloride Carbon Dioxide BUN Creatinine Glucose POC Glucose 216 H Lactic Acid Calcium Ionized Calcium Phosphorus Magnesium Direct Bilirubin AST ALT Alkaline Phosphatase Lactate Dehydrogenase Troponin T C-Reactive Protein Total Protein Albumin Prealbumin Triglycerides Cholesterol LDL Cholesterol Direct HDL Cholesterol 25-OH Vitamin D Total PTH Intact Urine pH Urine WBC (Auto) Urine Creatinine Urine Total Protein Fluid Total Protein Vancomycin Trough Rheumatoid Factor Complement C4 Miscellaneous Test Crossmatch 09/08/16 09/08/16 09/08/16 06:18 06:51 10:55 WBC RBC Hgb Hct MCV MCH MCHC RDW Plt Count Lymph % (Auto) [place] % (Auto) Lymph # [place] # Baso # Seg Neutrophils % Seg Neuts % (Manual) Lymphocytes % (Manual) Monocytes % (Manual) Eosinophils % (Manual) Basophils % (Manual) Nucleated RBC % Seg Neutrophils # Seg Neutrophils # Man Lymphocytes # (Manual) Monocytes # (Manual) Eosinophils # (Manual) Basophils # (Manual) PT INR Fibrinogen dRVVT Confirm Interp Factor V Activity POC ABG pH POC ABG pCO2 POC ABG pO2 ABG pO2 ABG HCO3 ABG Base Excess ABG Hemoglobin Oxyhemoglobin Sodium 133 L Potassium Chloride 96.9 L Carbon Dioxide 20 L BUN 63 H Creatinine 2.7 H Glucose 195 H POC Glucose 204 H 169 H Lactic Acid Calcium Ionized Calcium Phosphorus Magnesium Direct Bilirubin AST ALT Alkaline Phosphatase Lactate Dehydrogenase Troponin T C-Reactive Protein Total Protein Albumin Prealbumin Triglycerides Cholesterol LDL Cholesterol Direct HDL Cholesterol 25-OH Vitamin D Total PTH Intact Urine pH Urine WBC (Auto) Urine Creatinine Urine Total Protein Fluid Total Protein Vancomycin Trough Rheumatoid Factor Complement C4 Miscellaneous Test Crossmatch 09/08/16 09/08/16 09/08/16 11:48 11:48 11:48 WBC RBC Hgb Hct MCV MCH MCHC RDW Plt Count Lymph % (Auto) [place] % (Auto) Lymph # [place] # Baso # Seg Neutrophils % Seg Neuts % (Manual) Lymphocytes % (Manual) Monocytes % (Manual) Eosinophils % (Manual) Basophils % (Manual) Nucleated RBC % Seg Neutrophils # Seg Neutrophils # Man Lymphocytes # (Manual) Monocytes # (Manual) Eosinophils # (Manual) Basophils # (Manual) PT INR Fibrinogen 750 H dRVVT Confirm Interp Factor V Activity POC ABG pH POC ABG pCO2 POC ABG pO2 ABG pO2 ABG HCO3 ABG Base Excess ABG Hemoglobin Oxyhemoglobin Sodium Potassium Chloride Carbon Dioxide BUN Creatinine Glucose POC Glucose Lactic Acid Calcium Ionized Calcium Phosphorus Magnesium Direct Bilirubin AST ALT Alkaline Phosphatase Lactate Dehydrogenase Troponin T C-Reactive Protein 15.70 H Total Protein Albumin Prealbumin Triglycerides Cholesterol LDL Cholesterol Direct HDL Cholesterol 25-OH Vitamin D Total PTH Intact Urine pH Urine WBC (Auto) Urine Creatinine Urine Total Protein Fluid Total Protein Vancomycin Trough Rheumatoid Factor 24 H Complement C4 Miscellaneous Test Crossmatch 09/08/16 09/08/16 09/09/16 15:35 18:25 00:24 WBC RBC Hgb Hct MCV MCH MCHC RDW Plt Count Lymph % (Auto) [place] % (Auto) Lymph # [place] # Baso # Seg Neutrophils % Seg Neuts % (Manual) Lymphocytes % (Manual) Monocytes % (Manual) Eosinophils % (Manual) Basophils % (Manual) Nucleated RBC % Seg Neutrophils # Seg Neutrophils # Man Lymphocytes # (Manual) Monocytes # (Manual) Eosinophils # (Manual) Basophils # (Manual) PT INR Fibrinogen dRVVT Confirm Interp Factor V Activity 182 H POC ABG pH POC ABG pCO2 POC ABG pO2 ABG pO2 ABG HCO3 ABG Base Excess ABG Hemoglobin Oxyhemoglobin Sodium Potassium Chloride Carbon Dioxide BUN Creatinine Glucose POC Glucose 184 H 216 H Lactic Acid Calcium Ionized Calcium Phosphorus Magnesium Direct Bilirubin AST ALT Alkaline Phosphatase Lactate Dehydrogenase Troponin T C-Reactive Protein Total Protein Albumin Prealbumin Triglycerides Cholesterol LDL Cholesterol Direct HDL Cholesterol 25-OH Vitamin D Total PTH Intact Urine pH Urine WBC (Auto) Urine Creatinine Urine Total Protein Fluid Total Protein Vancomycin Trough Rheumatoid Factor Complement C4 Miscellaneous Test Crossmatch 09/09/16 09/09/16 09/09/16 03:00 03:00 04:04 WBC 27.9 H RBC Hgb 8.7 L Hct 28.1 L MCV 72 L MCH 22 L MCHC RDW 18.4 H Plt Count 485 H Lymph % (Auto) [place] % (Auto) Lymph # [place] # Baso # Seg Neutrophils % Seg Neuts % (Manual) 77.0 H Lymphocytes % (Manual) 9.0 L Monocytes % (Manual) Eosinophils % (Manual) Basophils % (Manual) Nucleated RBC % Seg Neutrophils # Seg Neutrophils # Man 21.5 H Lymphocytes # (Manual) Monocytes # (Manual) 2.0 H Eosinophils # (Manual) Basophils # (Manual) PT INR Fibrinogen dRVVT Confirm Interp Factor V Activity POC ABG pH POC ABG pCO2 POC ABG pO2 121 H ABG pO2 ABG HCO3 ABG Base Excess ABG Hemoglobin Oxyhemoglobin Sodium 135 L Potassium Chloride 96.3 L Carbon Dioxide 21 L BUN 83 H Creatinine 3.0 H Glucose 135 H POC Glucose Lactic Acid Calcium Ionized Calcium Phosphorus Magnesium Direct Bilirubin AST ALT Alkaline Phosphatase Lactate Dehydrogenase Troponin T C-Reactive Protein Total Protein Albumin Prealbumin Triglycerides Cholesterol LDL Cholesterol Direct HDL Cholesterol 25-OH Vitamin D Total PTH Intact Urine pH Urine WBC (Auto) Urine Creatinine Urine Total Protein Fluid Total Protein Vancomycin Trough Rheumatoid Factor Complement C4 Miscellaneous Test Crossmatch 09/09/16 09/09/16 09/09/16 05:41 11:55 14:13 WBC RBC Hgb Hct MCV MCH MCHC RDW Plt Count Lymph % (Auto) [place] % (Auto) Lymph # [place] # Baso # Seg Neutrophils % Seg Neuts % (Manual) Lymphocytes % (Manual) Monocytes % (Manual) Eosinophils % (Manual) Basophils % (Manual) Nucleated RBC % Seg Neutrophils # Seg Neutrophils # Man Lymphocytes # (Manual) Monocytes # (Manual) Eosinophils # (Manual) Basophils # (Manual) PT INR Fibrinogen dRVVT Confirm Interp Factor V Activity POC ABG pH POC ABG pCO2 POC ABG pO2 ABG pO2 ABG HCO3 ABG Base Excess ABG Hemoglobin Oxyhemoglobin Sodium Potassium Chloride Carbon Dioxide BUN Creatinine Glucose POC Glucose 155 H 186 H Lactic Acid Calcium Ionized Calcium Phosphorus Magnesium Direct Bilirubin AST ALT Alkaline Phosphatase Lactate Dehydrogenase Troponin T C-Reactive Protein Total Protein Albumin Prealbumin Triglycerides Cholesterol LDL Cholesterol Direct HDL Cholesterol 25-OH Vitamin D Total PTH Intact Urine pH Urine WBC (Auto) 25.0 H Urine Creatinine Urine Total Protein Fluid Total Protein Vancomycin Trough Rheumatoid Factor Complement C4 Miscellaneous Test Crossmatch 09/09/16 09/09/16 09/10/16 17:33 23:13 05:09 WBC RBC Hgb Hct MCV MCH MCHC RDW Plt Count Lymph % (Auto) [place] % (Auto) Lymph # [place] # Baso # Seg Neutrophils % Seg Neuts % (Manual) Lymphocytes % (Manual) Monocytes % (Manual) Eosinophils % (Manual) Basophils % (Manual) Nucleated RBC % Seg Neutrophils # Seg Neutrophils # Man Lymphocytes # (Manual) Monocytes # (Manual) Eosinophils # (Manual) Basophils # (Manual) PT INR Fibrinogen dRVVT Confirm Interp Factor V Activity POC ABG pH POC ABG pCO2 POC ABG pO2 74 L ABG pO2 ABG HCO3 ABG Base Excess ABG Hemoglobin Oxyhemoglobin Sodium Potassium Chloride Carbon Dioxide BUN Creatinine Glucose POC Glucose 211 H 215 H Lactic Acid Calcium Ionized Calcium Phosphorus Magnesium Direct Bilirubin AST ALT Alkaline Phosphatase Lactate Dehydrogenase Troponin T C-Reactive Protein Total Protein Albumin Prealbumin Triglycerides Cholesterol LDL Cholesterol Direct HDL Cholesterol 25-OH Vitamin D Total PTH Intact Urine pH Urine WBC (Auto) Urine Creatinine Urine Total Protein Fluid Total Protein Vancomycin Trough Rheumatoid Factor Complement C4 Miscellaneous Test Crossmatch 09/10/16 09/10/16 09/10/16 05:17 05:17 11:31 WBC 15.8 H RBC 3.25 L Hgb 7.3 L Hct 22.9 L MCV 71 L MCH 23 L MCHC RDW 18.4 H Plt Count Lymph % (Auto) [place] % (Auto) Lymph # [place] # Baso # Seg Neutrophils % Seg Neuts % (Manual) 91.0 H Lymphocytes % (Manual) 4.0 L Monocytes % (Manual) Eosinophils % (Manual) Basophils % (Manual) Nucleated RBC % Seg Neutrophils # Seg Neutrophils # Man 14.4 H Lymphocytes # (Manual) 0.6 L Monocytes # (Manual) Eosinophils # (Manual) Basophils # (Manual) PT INR Fibrinogen dRVVT Confirm Interp Factor V Activity POC ABG pH POC ABG pCO2 POC ABG pO2 ABG pO2 ABG HCO3 ABG Base Excess ABG Hemoglobin Oxyhemoglobin Sodium Potassium Chloride Carbon Dioxide 21 L BUN 93 H Creatinine 2.9 H Glucose 146 H POC Glucose 188 H Lactic Acid Calcium 8.1 L Ionized Calcium Phosphorus Magnesium Direct Bilirubin AST ALT Alkaline Phosphatase Lactate Dehydrogenase Troponin T C-Reactive Protein Total Protein Albumin Prealbumin Triglycerides Cholesterol LDL Cholesterol Direct HDL Cholesterol 25-OH Vitamin D Total PTH Intact Urine pH Urine WBC (Auto) Urine Creatinine Urine Total Protein Fluid Total Protein Vancomycin Trough Rheumatoid Factor Complement C4 Miscellaneous Test Crossmatch 09/10/16 09/10/16 09/10/16 13:17 17:20 23:32 WBC RBC Hgb Hct MCV MCH MCHC RDW Plt Count Lymph % (Auto) [place] % (Auto) Lymph # [place] # Baso # Seg Neutrophils % Seg Neuts % (Manual) Lymphocytes % (Manual) Monocytes % (Manual) Eosinophils % (Manual) Basophils % (Manual) Nucleated RBC % Seg Neutrophils # Seg Neutrophils # Man Lymphocytes # (Manual) Monocytes # (Manual) Eosinophils # (Manual) Basophils # (Manual) PT INR Fibrinogen dRVVT Confirm Interp Factor V Activity POC ABG pH POC ABG pCO2 POC ABG pO2 ABG pO2 ABG HCO3 ABG Base Excess ABG Hemoglobin Oxyhemoglobin Sodium Potassium Chloride Carbon Dioxide BUN Creatinine Glucose POC Glucose 199 H 186 H Lactic Acid Calcium Ionized Calcium Phosphorus Magnesium Direct Bilirubin AST ALT Alkaline Phosphatase Lactate Dehydrogenase Troponin T C-Reactive Protein Total Protein Albumin Prealbumin Triglycerides Cholesterol LDL Cholesterol Direct HDL Cholesterol 25-OH Vitamin D Total PTH Intact Urine pH Urine WBC (Auto) Urine Creatinine Urine Total Protein Fluid Total Protein Vancomycin Trough Rheumatoid Factor Complement C4 Miscellaneous Test Crossmatch See Detail 09/11/16 09/11/16 09/11/16 05:10 05:10 05:17 WBC 28.4 H RBC Hgb 9.2 L Hct 29.3 L D MCV 73 L MCH 23 L MCHC RDW 18.9 H Plt Count 452 H Lymph % (Auto) [place] % (Auto) Lymph # [place] # Baso # Seg Neutrophils % Seg Neuts % (Manual) 89.5 H Lymphocytes % (Manual) 2.0 L Monocytes % (Manual) Eosinophils % (Manual) Basophils % (Manual) Nucleated RBC % Seg Neutrophils # Seg Neutrophils # Man 25.4 H Lymphocytes # (Manual) 0.6 L Monocytes # (Manual) 1.3 H Eosinophils # (Manual) Basophils # (Manual) PT INR Fibrinogen dRVVT Confirm Interp Factor V Activity POC ABG pH POC ABG pCO2 POC ABG pO2 ABG pO2 ABG HCO3 ABG Base Excess ABG Hemoglobin Oxyhemoglobin Sodium 136 L Potassium Chloride Carbon Dioxide 18 L BUN 107 H Creatinine 2.6 H Glucose 187 H POC Glucose 230 H Lactic Acid Calcium 8.3 L Ionized Calcium Phosphorus Magnesium Direct Bilirubin AST ALT Alkaline Phosphatase Lactate Dehydrogenase Troponin T C-Reactive Protein Total Protein Albumin Prealbumin Triglycerides Cholesterol LDL Cholesterol Direct HDL Cholesterol 25-OH Vitamin D Total PTH Intact Urine pH Urine WBC (Auto) Urine Creatinine Urine Total Protein Fluid Total Protein Vancomycin Trough Rheumatoid Factor Complement C4 Miscellaneous Test Crossmatch 09/11/16 09/11/16 09/11/16 05:55 12:02 17:32 WBC RBC Hgb Hct MCV MCH MCHC RDW Plt Count Lymph % (Auto) [place] % (Auto) Lymph # [place] # Baso # Seg Neutrophils % Seg Neuts % (Manual) Lymphocytes % (Manual) Monocytes % (Manual) Eosinophils % (Manual) Basophils % (Manual) Nucleated RBC % Seg Neutrophils # Seg Neutrophils # Man Lymphocytes # (Manual) Monocytes # (Manual) Eosinophils # (Manual) Basophils # (Manual) PT INR Fibrinogen dRVVT Confirm Interp Factor V Activity POC ABG pH POC ABG pCO2 33.8 L POC ABG pO2 ABG pO2 ABG HCO3 ABG Base Excess ABG Hemoglobin Oxyhemoglobin Sodium Potassium Chloride Carbon Dioxide BUN Creatinine Glucose POC Glucose 191 H 239 H Lactic Acid Calcium Ionized Calcium Phosphorus Magnesium Direct Bilirubin AST ALT Alkaline Phosphatase Lactate Dehydrogenase Troponin T C-Reactive Protein Total Protein Albumin Prealbumin Triglycerides Cholesterol LDL Cholesterol Direct HDL Cholesterol 25-OH Vitamin D Total PTH Intact Urine pH Urine WBC (Auto) Urine Creatinine Urine Total Protein Fluid Total Protein Vancomycin Trough Rheumatoid Factor Complement C4 Miscellaneous Test Crossmatch 09/11/16 09/12/16 09/12/16 23:52 05:09 05:32 WBC RBC Hgb Hct MCV MCH MCHC RDW Plt Count Lymph % (Auto) [place] % (Auto) Lymph # [place] # Baso # Seg Neutrophils % Seg Neuts % (Manual) Lymphocytes % (Manual) Monocytes % (Manual) Eosinophils % (Manual) Basophils % (Manual) Nucleated RBC % Seg Neutrophils # Seg Neutrophils # Man Lymphocytes # (Manual) Monocytes # (Manual) Eosinophils # (Manual) Basophils # (Manual) PT INR Fibrinogen dRVVT Confirm Interp Factor V Activity POC ABG pH POC ABG pCO2 34.6 L POC ABG pO2 ABG pO2 ABG HCO3 ABG Base Excess ABG Hemoglobin Oxyhemoglobin Sodium Potassium Chloride Carbon Dioxide BUN Creatinine Glucose POC Glucose 265 H 184 H Lactic Acid Calcium Ionized Calcium Phosphorus Magnesium Direct Bilirubin AST ALT Alkaline Phosphatase Lactate Dehydrogenase Troponin T C-Reactive Protein Total Protein Albumin Prealbumin Triglycerides Cholesterol LDL Cholesterol Direct HDL Cholesterol 25-OH Vitamin D Total PTH Intact Urine pH Urine WBC (Auto) Urine Creatinine Urine Total Protein Fluid Total Protein Vancomycin Trough Rheumatoid Factor Complement C4 Miscellaneous Test Crossmatch 09/12/16 09/12/16 09/12/16 06:45 06:45 07:22 WBC 31.7 H RBC 3.54 L Hgb 8.3 L Hct 25.9 L MCV 73 L MCH 23 L MCHC RDW 18.9 H Plt Count Lymph % (Auto) [place] % (Auto) Lymph # [place] # Baso # Seg Neutrophils % Seg Neuts % (Manual) 88.5 H Lymphocytes % (Manual) 4.5 L Monocytes % (Manual) Eosinophils % (Manual) Basophils % (Manual) Nucleated RBC % Seg Neutrophils # Seg Neutrophils # Man 28.1 H Lymphocytes # (Manual) Monocytes # (Manual) 1.0 H Eosinophils # (Manual) Basophils # (Manual) PT INR Fibrinogen dRVVT Confirm Interp Factor V Activity POC ABG pH POC ABG pCO2 POC ABG pO2 ABG pO2 ABG HCO3 ABG Base Excess ABG Hemoglobin Oxyhemoglobin Sodium Potassium Chloride Carbon Dioxide 20 L BUN 115 H Creatinine 2.7 H Glucose 165 H POC Glucose Lactic Acid Calcium 8.0 L Ionized Calcium Phosphorus Magnesium Direct Bilirubin AST ALT Alkaline Phosphatase Lactate Dehydrogenase Troponin T C-Reactive Protein Total Protein Albumin Prealbumin Triglycerides 217 H Cholesterol LDL Cholesterol Direct HDL Cholesterol 25-OH Vitamin D Total PTH Intact Urine pH Urine WBC (Auto) Urine Creatinine Urine Total Protein Fluid Total Protein Vancomycin Trough Rheumatoid Factor Complement C4 Miscellaneous Test Crossmatch 09/12/16 09/12/16 09/12/16 07:22 09:59 12:21 WBC RBC Hgb Hct MCV MCH MCHC RDW Plt Count Lymph % (Auto) [place] % (Auto) Lymph # [place] # Baso # Seg Neutrophils % Seg Neuts % (Manual) Lymphocytes % (Manual) Monocytes % (Manual) Eosinophils % (Manual) Basophils % (Manual) Nucleated RBC % Seg Neutrophils # Seg Neutrophils # Man Lymphocytes # (Manual) Monocytes # (Manual) Eosinophils # (Manual) Basophils # (Manual) PT INR Fibrinogen dRVVT Confirm Interp Positive H Factor V Activity POC ABG pH POC ABG pCO2 POC ABG pO2 ABG pO2 ABG HCO3 ABG Base Excess ABG Hemoglobin Oxyhemoglobin Sodium Potassium Chloride Carbon Dioxide BUN Creatinine Glucose POC Glucose 224 H Lactic Acid Calcium Ionized Calcium Phosphorus Magnesium Direct Bilirubin AST ALT Alkaline Phosphatase Lactate Dehydrogenase Troponin T C-Reactive Protein 1.70 H Total Protein Albumin Prealbumin Triglycerides Cholesterol LDL Cholesterol Direct HDL Cholesterol 25-OH Vitamin D Total PTH Intact Urine pH Urine WBC (Auto) Urine Creatinine Urine Total Protein Fluid Total Protein Vancomycin Trough Rheumatoid Factor Complement C4 Miscellaneous Test Crossmatch 09/12/16 09/12/16 09/13/16 16:51 23:28 04:00 WBC 45.0 H* RBC Hgb 9.4 L Hct MCV 75 L MCH 23 L MCHC RDW 19.0 H Plt Count 470 H Lymph % (Auto) [place] % (Auto) Lymph # [place] # Baso # Seg Neutrophils % Seg Neuts % (Manual) 89.0 H Lymphocytes % (Manual) 5.0 L Monocytes % (Manual) Eosinophils % (Manual) Basophils % (Manual) Nucleated RBC % Seg Neutrophils # Seg Neutrophils # Man 40.1 H Lymphocytes # (Manual) Monocytes # (Manual) Eosinophils # (Manual) Basophils # (Manual) PT INR Fibrinogen dRVVT Confirm Interp Factor V Activity POC ABG pH POC ABG pCO2 POC ABG pO2 ABG pO2 ABG HCO3 ABG Base Excess ABG Hemoglobin Oxyhemoglobin Sodium Potassium Chloride Carbon Dioxide BUN Creatinine Glucose POC Glucose 169 H 150 H Lactic Acid Calcium Ionized Calcium Phosphorus Magnesium Direct Bilirubin AST ALT Alkaline Phosphatase Lactate Dehydrogenase Troponin T C-Reactive Protein Total Protein Albumin Prealbumin Triglycerides Cholesterol LDL Cholesterol Direct HDL Cholesterol 25-OH Vitamin D Total PTH Intact Urine pH Urine WBC (Auto) Urine Creatinine Urine Total Protein Fluid Total Protein Vancomycin Trough Rheumatoid Factor Complement C4 Miscellaneous Test Crossmatch 09/13/16 09/13/16 09/13/16 04:00 11:26 17:31 WBC RBC Hgb Hct MCV MCH MCHC RDW Plt Count Lymph % (Auto) [place] % (Auto) Lymph # [place] # Baso # Seg Neutrophils % Seg Neuts % (Manual) Lymphocytes % (Manual) Monocytes % (Manual) Eosinophils % (Manual) Basophils % (Manual) Nucleated RBC % Seg Neutrophils # Seg Neutrophils # Man Lymphocytes # (Manual) Monocytes # (Manual) Eosinophils # (Manual) Basophils # (Manual) PT INR Fibrinogen dRVVT Confirm Interp Factor V Activity POC ABG pH POC ABG pCO2 POC ABG pO2 ABG pO2 ABG HCO3 ABG Base Excess ABG Hemoglobin Oxyhemoglobin Sodium Potassium Chloride Carbon Dioxide 20 L BUN 116 H Creatinine 3.0 H Glucose 172 H POC Glucose 140 H 183 H Lactic Acid Calcium Ionized Calcium Phosphorus Magnesium Direct Bilirubin AST ALT Alkaline Phosphatase Lactate Dehydrogenase Troponin T C-Reactive Protein Total Protein 6.2 L Albumin 2.9 L Prealbumin Triglycerides Cholesterol LDL Cholesterol Direct HDL Cholesterol 25-OH Vitamin D Total PTH Intact Urine pH Urine WBC (Auto) Urine Creatinine Urine Total Protein Fluid Total Protein Vancomycin Trough Rheumatoid Factor Complement C4 Miscellaneous Test Crossmatch 09/13/16 09/14/16 09/14/16 23:23 04:06 04:07 WBC 29.4 H RBC Hgb 8.9 L Hct 27.3 L MCV 75 L MCH 24 L MCHC RDW 19.1 H Plt Count Lymph % (Auto) [place] % (Auto) Lymph # [place] # Baso # Seg Neutrophils % Seg Neuts % (Manual) 84.0 H Lymphocytes % (Manual) 6.0 L Monocytes % (Manual) 9.0 H Eosinophils % (Manual) Basophils % (Manual) Nucleated RBC % Seg Neutrophils # Seg Neutrophils # Man 24.7 H Lymphocytes # (Manual) Monocytes # (Manual) 2.6 H Eosinophils # (Manual) Basophils # (Manual) PT INR Fibrinogen dRVVT Confirm Interp Factor V Activity POC ABG pH 7.342 L POC ABG pCO2 POC ABG pO2 116 H ABG pO2 ABG HCO3 ABG Base Excess ABG Hemoglobin Oxyhemoglobin Sodium Potassium Chloride Carbon Dioxide BUN Creatinine Glucose POC Glucose 154 H Lactic Acid Calcium Ionized Calcium Phosphorus Magnesium Direct Bilirubin AST ALT Alkaline Phosphatase Lactate Dehydrogenase Troponin T C-Reactive Protein Total Protein Albumin Prealbumin Triglycerides Cholesterol LDL Cholesterol Direct HDL Cholesterol 25-OH Vitamin D Total PTH Intact Urine pH Urine WBC (Auto) Urine Creatinine Urine Total Protein Fluid Total Protein Vancomycin Trough Rheumatoid Factor Complement C4 Miscellaneous Test Crossmatch 09/14/16 09/14/16 09/14/16 04:07 05:29 12:19 WBC RBC Hgb Hct MCV MCH MCHC RDW Plt Count Lymph % (Auto) [place] % (Auto) Lymph # [place] # Baso # Seg Neutrophils % Seg Neuts % (Manual) Lymphocytes % (Manual) Monocytes % (Manual) Eosinophils % (Manual) Basophils % (Manual) Nucleated RBC % Seg Neutrophils # Seg Neutrophils # Man Lymphocytes # (Manual) Monocytes # (Manual) Eosinophils # (Manual) Basophils # (Manual) PT INR Fibrinogen dRVVT Confirm Interp Factor V Activity POC ABG pH POC ABG pCO2 POC ABG pO2 ABG pO2 ABG HCO3 ABG Base Excess ABG Hemoglobin Oxyhemoglobin Sodium 136 L Potassium Chloride Carbon Dioxide 18 L BUN 121 H Creatinine 2.8 H Glucose 214 H POC Glucose 239 H 181 H Lactic Acid Calcium Ionized Calcium Phosphorus Magnesium Direct Bilirubin AST ALT Alkaline Phosphatase Lactate Dehydrogenase Troponin T C-Reactive Protein Total Protein Albumin Prealbumin Triglycerides Cholesterol LDL Cholesterol Direct HDL Cholesterol 25-OH Vitamin D Total PTH Intact Urine pH Urine WBC (Auto) Urine Creatinine Urine Total Protein Fluid Total Protein Vancomycin Trough Rheumatoid Factor Complement C4 Miscellaneous Test Crossmatch 09/14/16 09/14/16 09/15/16 18:12 23:37 05:00 WBC 26.1 H RBC 3.05 L Hgb 7.2 L Hct 22.9 L MCV 75 L MCH 24 L MCHC RDW 19.0 H Plt Count Lymph % (Auto) [place] % (Auto) Lymph # [place] # Baso # Seg Neutrophils % Seg Neuts % (Manual) Lymphocytes % (Manual) Monocytes % (Manual) Eosinophils % (Manual) Basophils % (Manual) Nucleated RBC % Seg Neutrophils # Seg Neutrophils # Man Lymphocytes # (Manual) Monocytes # (Manual) Eosinophils # (Manual) Basophils # (Manual) PT INR Fibrinogen dRVVT Confirm Interp Factor V Activity POC ABG pH POC ABG pCO2 POC ABG pO2 ABG pO2 ABG HCO3 ABG Base Excess ABG Hemoglobin Oxyhemoglobin Sodium Potassium Chloride Carbon Dioxide BUN Creatinine Glucose POC Glucose 266 H 154 H Lactic Acid Calcium Ionized Calcium Phosphorus Magnesium Direct Bilirubin AST ALT Alkaline Phosphatase Lactate Dehydrogenase Troponin T C-Reactive Protein Total Protein Albumin Prealbumin Triglycerides Cholesterol LDL Cholesterol Direct HDL Cholesterol 25-OH Vitamin D Total PTH Intact Urine pH Urine WBC (Auto) Urine Creatinine Urine Total Protein Fluid Total Protein Vancomycin Trough Rheumatoid Factor Complement C4 Miscellaneous Test Crossmatch 09/15/16 09/15/16 09/15/16 05:00 05:17 12:45 WBC RBC Hgb Hct MCV MCH MCHC RDW Plt Count Lymph % (Auto) [place] % (Auto) Lymph # [place] # Baso # Seg Neutrophils % Seg Neuts % (Manual) Lymphocytes % (Manual) Monocytes % (Manual) Eosinophils % (Manual) Basophils % (Manual) Nucleated RBC % Seg Neutrophils # Seg Neutrophils # Man Lymphocytes # (Manual) Monocytes # (Manual) Eosinophils # (Manual) Basophils # (Manual) PT INR Fibrinogen dRVVT Confirm Interp Factor V Activity POC ABG pH POC ABG pCO2 POC ABG pO2 ABG pO2 ABG HCO3 ABG Base Excess ABG Hemoglobin Oxyhemoglobin Sodium Potassium 5.2 H Chloride Carbon Dioxide 18 L BUN 139 H Creatinine 3.7 H Glucose 227 H POC Glucose 226 H 244 H Lactic Acid Calcium 8.3 L Ionized Calcium Phosphorus Magnesium Direct Bilirubin AST ALT Alkaline Phosphatase Lactate Dehydrogenase Troponin T C-Reactive Protein Total Protein Albumin Prealbumin Triglycerides Cholesterol LDL Cholesterol Direct HDL Cholesterol 25-OH Vitamin D Total PTH Intact Urine pH Urine WBC (Auto) Urine Creatinine Urine Total Protein Fluid Total Protein Vancomycin Trough Rheumatoid Factor Complement C4 Miscellaneous Test Crossmatch 09/15/16 09/15/16 09/15/16 14:32 17:33 23:35 WBC RBC Hgb Hct MCV MCH MCHC RDW Plt Count Lymph % (Auto) [place] % (Auto) Lymph # [place] # Baso # Seg Neutrophils % Seg Neuts % (Manual) Lymphocytes % (Manual) Monocytes % (Manual) Eosinophils % (Manual) Basophils % (Manual) Nucleated RBC % Seg Neutrophils # Seg Neutrophils # Man Lymphocytes # (Manual) Monocytes # (Manual) Eosinophils # (Manual) Basophils # (Manual) PT INR Fibrinogen dRVVT Confirm Interp Factor V Activity POC ABG pH POC ABG pCO2 27.7 L POC ABG pO2 120 H ABG pO2 ABG HCO3 ABG Base Excess ABG Hemoglobin Oxyhemoglobin Sodium Potassium Chloride Carbon Dioxide BUN Creatinine Glucose POC Glucose 232 H 167 H Lactic Acid Calcium Ionized Calcium Phosphorus Magnesium Direct Bilirubin AST ALT Alkaline Phosphatase Lactate Dehydrogenase Troponin T C-Reactive Protein Total Protein Albumin Prealbumin Triglycerides Cholesterol LDL Cholesterol Direct HDL Cholesterol 25-OH Vitamin D Total PTH Intact Urine pH Urine WBC (Auto) Urine Creatinine Urine Total Protein Fluid Total Protein Vancomycin Trough Rheumatoid Factor Complement C4 Miscellaneous Test Crossmatch 09/16/16 09/16/16 09/16/16 03:58 10:27 10:27 WBC 19.0 H RBC 2.77 L Hgb 6.5 L Hct 20.9 L MCV 76 L MCH 23 L MCHC RDW 19.3 H Plt Count Lymph % (Auto) 11.0 L [place] % (Auto) Lymph # [place] # 1.1 H Baso # Seg Neutrophils % 82.5 H Seg Neuts % (Manual) Lymphocytes % (Manual) Monocytes % (Manual) Eosinophils % (Manual) Basophils % (Manual) Nucleated RBC % Seg Neutrophils # 15.7 H Seg Neutrophils # Man Lymphocytes # (Manual) Monocytes # (Manual) Eosinophils # (Manual) Basophils # (Manual) PT INR Fibrinogen dRVVT Confirm Interp Factor V Activity POC ABG pH POC ABG pCO2 POC ABG pO2 ABG pO2 ABG HCO3 ABG Base Excess ABG Hemoglobin Oxyhemoglobin Sodium Potassium Chloride 109.3 H Carbon Dioxide 18 L BUN 139 H Creatinine 4.1 H Glucose 144 H POC Glucose 146 H Lactic Acid Calcium 8.1 L Ionized Calcium Phosphorus Magnesium Direct Bilirubin AST ALT Alkaline Phosphatase Lactate Dehydrogenase Troponin T C-Reactive Protein Total Protein Albumin Prealbumin Triglycerides Cholesterol LDL Cholesterol Direct HDL Cholesterol 25-OH Vitamin D Total PTH Intact Urine pH Urine WBC (Auto) Urine Creatinine Urine Total Protein Fluid Total Protein Vancomycin Trough Rheumatoid Factor Complement C4 Miscellaneous Test Crossmatch 09/16/16 09/16/16 09/16/16 12:04 12:10 13:55 WBC RBC Hgb Hct MCV MCH MCHC RDW Plt Count Lymph % (Auto) [place] % (Auto) Lymph # [place] # Baso # Seg Neutrophils % Seg Neuts % (Manual) Lymphocytes % (Manual) Monocytes % (Manual) Eosinophils % (Manual) Basophils % (Manual) Nucleated RBC % Seg Neutrophils # Seg Neutrophils # Man Lymphocytes # (Manual) Monocytes # (Manual) Eosinophils # (Manual) Basophils # (Manual) PT INR Fibrinogen dRVVT Confirm Interp Factor V Activity POC ABG pH POC ABG pCO2 32.9 L POC ABG pO2 ABG pO2 ABG HCO3 ABG Base Excess ABG Hemoglobin Oxyhemoglobin Sodium Potassium Chloride Carbon Dioxide BUN Creatinine Glucose POC Glucose 185 H Lactic Acid Calcium Ionized Calcium Phosphorus Magnesium Direct Bilirubin AST ALT Alkaline Phosphatase Lactate Dehydrogenase Troponin T C-Reactive Protein Total Protein Albumin Prealbumin Triglycerides Cholesterol LDL Cholesterol Direct HDL Cholesterol 25-OH Vitamin D Total PTH Intact Urine pH Urine WBC (Auto) Urine Creatinine Urine Total Protein Fluid Total Protein Vancomycin Trough Rheumatoid Factor Complement C4 Miscellaneous Test Crossmatch See Detail 09/16/16 09/16/16 09/16/16 17:55 19:19 23:48 WBC RBC Hgb Hct MCV MCH MCHC RDW Plt Count Lymph % (Auto) [place] % (Auto) Lymph # [place] # Baso # Seg Neutrophils % Seg Neuts % (Manual) Lymphocytes % (Manual) Monocytes % (Manual) Eosinophils % (Manual) Basophils % (Manual) Nucleated RBC % Seg Neutrophils # Seg Neutrophils # Man Lymphocytes # (Manual) Monocytes # (Manual) Eosinophils # (Manual) Basophils # (Manual) PT INR Fibrinogen dRVVT Confirm Interp Factor V Activity POC ABG pH POC ABG pCO2 POC ABG pO2 ABG pO2 ABG HCO3 ABG Base Excess ABG Hemoglobin Oxyhemoglobin Sodium Potassium Chloride Carbon Dioxide BUN Creatinine Glucose POC Glucose 222 H 107 H Lactic Acid Calcium Ionized Calcium Phosphorus Magnesium Direct Bilirubin AST ALT Alkaline Phosphatase Lactate Dehydrogenase Troponin T C-Reactive Protein Total Protein Albumin Prealbumin Triglycerides Cholesterol LDL Cholesterol Direct HDL Cholesterol 25-OH Vitamin D Total PTH Intact Urine pH Urine WBC (Auto) Urine Creatinine 47.4 H Urine Total Protein 16 H Fluid Total Protein Vancomycin Trough Rheumatoid Factor Complement C4 Miscellaneous Test Crossmatch 09/17/16 09/17/16 09/17/16 03:45 03:45 04:55 WBC 19.6 H RBC 3.41 L Hgb 8.5 L Hct 26.7 L MCV 78 L MCH 25 L MCHC RDW 19.9 H Plt Count Lymph % (Auto) 9.3 L [place] % (Auto) Lymph # [place] # 1.2 H Baso # Seg Neutrophils % 83.9 H Seg Neuts % (Manual) Lymphocytes % (Manual) Monocytes % (Manual) Eosinophils % (Manual) Basophils % (Manual) Nucleated RBC % Seg Neutrophils # 16.4 H Seg Neutrophils # Man Lymphocytes # (Manual) Monocytes # (Manual) Eosinophils # (Manual) Basophils # (Manual) PT INR Fibrinogen dRVVT Confirm Interp Factor V Activity POC ABG pH POC ABG pCO2 POC ABG pO2 ABG pO2 ABG HCO3 ABG Base Excess ABG Hemoglobin Oxyhemoglobin Sodium 146 H Potassium 5.1 H Chloride 110.9 H Carbon Dioxide 16 L BUN 146 H Creatinine 4.0 H Glucose 108 H POC Glucose 133 H Lactic Acid Calcium Ionized Calcium Phosphorus Magnesium 3.00 H Direct Bilirubin AST ALT Alkaline Phosphatase Lactate Dehydrogenase Troponin T C-Reactive Protein Total Protein Albumin Prealbumin Triglycerides Cholesterol LDL Cholesterol Direct HDL Cholesterol 25-OH Vitamin D Total PTH Intact Urine pH Urine WBC (Auto) Urine Creatinine Urine Total Protein Fluid Total Protein Vancomycin Trough Rheumatoid Factor Complement C4 Miscellaneous Test Crossmatch 09/17/16 09/17/16 09/17/16 11:15 17:33 23:47 WBC RBC Hgb Hct MCV MCH MCHC RDW Plt Count Lymph % (Auto) [place] % (Auto) Lymph # [place] # Baso # Seg Neutrophils % Seg Neuts % (Manual) Lymphocytes % (Manual) Monocytes % (Manual) Eosinophils % (Manual) Basophils % (Manual) Nucleated RBC % Seg Neutrophils # Seg Neutrophils # Man Lymphocytes # (Manual) Monocytes # (Manual) Eosinophils # (Manual) Basophils # (Manual) PT INR Fibrinogen dRVVT Confirm Interp Factor V Activity POC ABG pH POC ABG pCO2 POC ABG pO2 ABG pO2 ABG HCO3 ABG Base Excess ABG Hemoglobin Oxyhemoglobin Sodium Potassium Chloride Carbon Dioxide BUN Creatinine Glucose POC Glucose 176 H 246 H 148 H Lactic Acid Calcium Ionized Calcium Phosphorus Magnesium Direct Bilirubin AST ALT Alkaline Phosphatase Lactate Dehydrogenase Troponin T C-Reactive Protein Total Protein Albumin Prealbumin Triglycerides Cholesterol LDL Cholesterol Direct HDL Cholesterol 25-OH Vitamin D Total PTH Intact Urine pH Urine WBC (Auto) Urine Creatinine Urine Total Protein Fluid Total Protein Vancomycin Trough Rheumatoid Factor Complement C4 Miscellaneous Test Crossmatch 09/18/16 09/18/16 09/18/16 05:33 08:31 08:31 WBC 18.0 H RBC 3.17 L Hgb 9.0 L Hct 25.7 L MCV MCH MCHC 35 H RDW 20.4 H Plt Count Lymph % (Auto) [place] % (Auto) Lymph # [place] # Baso # Seg Neutrophils % Seg Neuts % (Manual) Lymphocytes % (Manual) Monocytes % (Manual) Eosinophils % (Manual) Basophils % (Manual) Nucleated RBC % Seg Neutrophils # Seg Neutrophils # Man Lymphocytes # (Manual) Monocytes # (Manual) Eosinophils # (Manual) Basophils # (Manual) PT INR Fibrinogen dRVVT Confirm Interp Factor V Activity POC ABG pH POC ABG pCO2 POC ABG pO2 ABG pO2 ABG HCO3 ABG Base Excess ABG Hemoglobin Oxyhemoglobin Sodium Potassium Chloride Carbon Dioxide 15 L BUN 124 H Creatinine 3.8 H Glucose POC Glucose 120 H Lactic Acid Calcium 8.1 L Ionized Calcium Phosphorus Magnesium Direct Bilirubin AST ALT Alkaline Phosphatase Lactate Dehydrogenase Troponin T C-Reactive Protein Total Protein Albumin Prealbumin Triglycerides Cholesterol LDL Cholesterol Direct HDL Cholesterol 25-OH Vitamin D Total PTH Intact Urine pH Urine WBC (Auto) Urine Creatinine Urine Total Protein Fluid Total Protein Vancomycin Trough Rheumatoid Factor Complement C4 Miscellaneous Test Crossmatch 09/18/16 09/18/16 09/18/16 12:03 15:34 17:50 WBC RBC Hgb Hct MCV MCH MCHC RDW Plt Count Lymph % (Auto) [place] % (Auto) Lymph # [place] # Baso # Seg Neutrophils % Seg Neuts % (Manual) Lymphocytes % (Manual) Monocytes % (Manual) Eosinophils % (Manual) Basophils % (Manual) Nucleated RBC % Seg Neutrophils # Seg Neutrophils # Man Lymphocytes # (Manual) Monocytes # (Manual) Eosinophils # (Manual) Basophils # (Manual) PT INR Fibrinogen dRVVT Confirm Interp Factor V Activity POC ABG pH POC ABG pCO2 25.7 L POC ABG pO2 66 L ABG pO2 ABG HCO3 ABG Base Excess ABG Hemoglobin Oxyhemoglobin Sodium Potassium Chloride Carbon Dioxide BUN Creatinine Glucose POC Glucose 156 H 220 H Lactic Acid Calcium Ionized Calcium Phosphorus Magnesium Direct Bilirubin AST ALT Alkaline Phosphatase Lactate Dehydrogenase Troponin T C-Reactive Protein Total Protein Albumin Prealbumin Triglycerides Cholesterol LDL Cholesterol Direct HDL Cholesterol 25-OH Vitamin D Total PTH Intact Urine pH Urine WBC (Auto) Urine Creatinine Urine Total Protein Fluid Total Protein Vancomycin Trough Rheumatoid Factor Complement C4 Miscellaneous Test Crossmatch 09/19/16 09/19/16 09/19/16 06:21 09:50 09:50 WBC 17.1 H RBC 3.49 L Hgb 9.0 L Hct 28.1 L MCV MCH 26 L MCHC RDW 20.8 H Plt Count Lymph % (Auto) 11.5 L [place] % (Auto) 7.5 H Lymph # [place] # 1.3 H Baso # Seg Neutrophils % 79.8 H Seg Neuts % (Manual) Lymphocytes % (Manual) Monocytes % (Manual) Eosinophils % (Manual) Basophils % (Manual) Nucleated RBC % Seg Neutrophils # 13.7 H Seg Neutrophils # Man Lymphocytes # (Manual) Monocytes # (Manual) Eosinophils # (Manual) Basophils # (Manual) PT INR Fibrinogen dRVVT Confirm Interp Factor V Activity POC ABG pH POC ABG pCO2 POC ABG pO2 ABG pO2 ABG HCO3 ABG Base Excess ABG Hemoglobin Oxyhemoglobin Sodium Potassium Chloride 108.6 H Carbon Dioxide 15 L BUN 125 H Creatinine 4.1 H Glucose 124 H POC Glucose 119 H Lactic Acid Calcium Ionized Calcium Phosphorus Magnesium Direct Bilirubin AST ALT Alkaline Phosphatase Lactate Dehydrogenase Troponin T C-Reactive Protein Total Protein Albumin Prealbumin Triglycerides Cholesterol LDL Cholesterol Direct HDL Cholesterol 25-OH Vitamin D Total PTH Intact Urine pH Urine WBC (Auto) Urine Creatinine Urine Total Protein Fluid Total Protein Vancomycin Trough Rheumatoid Factor Complement C4 Miscellaneous Test Crossmatch 09/19/16 09/19/16 09/19/16 11:25 17:53 23:36 WBC RBC Hgb Hct MCV MCH MCHC RDW Plt Count Lymph % (Auto) [place] % (Auto) Lymph # [place] # Baso # Seg Neutrophils % Seg Neuts % (Manual) Lymphocytes % (Manual) Monocytes % (Manual) Eosinophils % (Manual) Basophils % (Manual) Nucleated RBC % Seg Neutrophils # Seg Neutrophils # Man Lymphocytes # (Manual) Monocytes # (Manual) Eosinophils # (Manual) Basophils # (Manual) PT INR Fibrinogen dRVVT Confirm Interp Factor V Activity POC ABG pH POC ABG pCO2 POC ABG pO2 ABG pO2 ABG HCO3 ABG Base Excess ABG Hemoglobin Oxyhemoglobin Sodium Potassium Chloride Carbon Dioxide BUN Creatinine Glucose POC Glucose 160 H 245 H 121 H Lactic Acid Calcium Ionized Calcium Phosphorus Magnesium Direct Bilirubin AST ALT Alkaline Phosphatase Lactate Dehydrogenase Troponin T C-Reactive Protein Total Protein Albumin Prealbumin Triglycerides Cholesterol LDL Cholesterol Direct HDL Cholesterol 25-OH Vitamin D Total PTH Intact Urine pH Urine WBC (Auto) Urine Creatinine Urine Total Protein Fluid Total Protein Vancomycin Trough Rheumatoid Factor Complement C4 Miscellaneous Test Crossmatch 09/20/16 09/20/16 09/20/16 04:10 04:10 04:10 WBC 17.0 H RBC 3.21 L Hgb 8.2 L Hct 25.5 L MCV MCH 26 L MCHC RDW 20.9 H Plt Count Lymph % (Auto) [place] % (Auto) Lymph # [place] # Baso # Seg Neutrophils % Seg Neuts % (Manual) Lymphocytes % (Manual) Monocytes % (Manual) Eosinophils % (Manual) Basophils % (Manual) Nucleated RBC % Seg Neutrophils # Seg Neutrophils # Man Lymphocytes # (Manual) Monocytes # (Manual) Eosinophils # (Manual) Basophils # (Manual) PT INR Fibrinogen dRVVT Confirm Interp Factor V Activity POC ABG pH POC ABG pCO2 POC ABG pO2 ABG pO2 ABG HCO3 ABG Base Excess ABG Hemoglobin Oxyhemoglobin Sodium Potassium Chloride 111.0 H Carbon Dioxide 16 L BUN 129 H Creatinine 3.7 H Glucose 115 H POC Glucose Lactic Acid Calcium 8.2 L Ionized Calcium Phosphorus Magnesium Direct Bilirubin AST ALT Alkaline Phosphatase Lactate Dehydrogenase Troponin T C-Reactive Protein Total Protein Albumin Prealbumin Triglycerides 243 H Cholesterol LDL Cholesterol Direct HDL Cholesterol 25-OH Vitamin D Total PTH Intact Urine pH Urine WBC (Auto) Urine Creatinine Urine Total Protein Fluid Total Protein Vancomycin Trough Rheumatoid Factor Complement C4 Miscellaneous Test Crossmatch 09/20/16 09/20/16 09/20/16 05:40 11:52 16:50 WBC RBC Hgb Hct MCV MCH MCHC RDW Plt Count Lymph % (Auto) [place] % (Auto) Lymph # [place] # Baso # Seg Neutrophils % Seg Neuts % (Manual) Lymphocytes % (Manual) Monocytes % (Manual) Eosinophils % (Manual) Basophils % (Manual) Nucleated RBC % Seg Neutrophils # Seg Neutrophils # Man Lymphocytes # (Manual) Monocytes # (Manual) Eosinophils # (Manual) Basophils # (Manual) PT INR Fibrinogen dRVVT Confirm Interp Factor V Activity POC ABG pH POC ABG pCO2 POC ABG pO2 ABG pO2 ABG HCO3 ABG Base Excess ABG Hemoglobin Oxyhemoglobin Sodium Potassium Chloride Carbon Dioxide BUN Creatinine Glucose POC Glucose 131 H 183 H 236 H Lactic Acid Calcium Ionized Calcium Phosphorus Magnesium Direct Bilirubin AST ALT Alkaline Phosphatase Lactate Dehydrogenase Troponin T C-Reactive Protein Total Protein Albumin Prealbumin Triglycerides Cholesterol LDL Cholesterol Direct HDL Cholesterol 25-OH Vitamin D Total PTH Intact Urine pH Urine WBC (Auto) Urine Creatinine Urine Total Protein Fluid Total Protein Vancomycin Trough Rheumatoid Factor Complement C4 Miscellaneous Test Crossmatch 09/20/16 09/21/16 09/21/16 23:51 03:30 04:44 WBC RBC Hgb Hct MCV MCH MCHC RDW Plt Count Lymph % (Auto) [place] % (Auto) Lymph # [place] # Baso # Seg Neutrophils % Seg Neuts % (Manual) Lymphocytes % (Manual) Monocytes % (Manual) Eosinophils % (Manual) Basophils % (Manual) Nucleated RBC % Seg Neutrophils # Seg Neutrophils # Man Lymphocytes # (Manual) Monocytes # (Manual) Eosinophils # (Manual) Basophils # (Manual) PT INR Fibrinogen dRVVT Confirm Interp Factor V Activity POC ABG pH POC ABG pCO2 POC ABG pO2 ABG pO2 ABG HCO3 ABG Base Excess ABG Hemoglobin Oxyhemoglobin Sodium Potassium Chloride Carbon Dioxide BUN Creatinine Glucose POC Glucose 114 H 141 H Lactic Acid Calcium Ionized Calcium Phosphorus Magnesium 2.70 H Direct Bilirubin AST ALT Alkaline Phosphatase Lactate Dehydrogenase Troponin T C-Reactive Protein Total Protein Albumin Prealbumin Triglycerides Cholesterol LDL Cholesterol Direct HDL Cholesterol 25-OH Vitamin D Total PTH Intact Urine pH Urine WBC (Auto) Urine Creatinine Urine Total Protein Fluid Total Protein Vancomycin Trough Rheumatoid Factor Complement C4 Miscellaneous Test Crossmatch 09/21/16 09/21/16 09/21/16 07:45 07:45 10:01 WBC 13.8 H RBC 2.94 L Hgb 7.5 L Hct 23.5 L MCV MCH 26 L MCHC RDW 21.2 H Plt Count Lymph % (Auto) 6.9 L [place] % (Auto) 9.4 H Lymph # 0.9 L [place] # 1.3 H Baso # Seg Neutrophils % 83.2 H Seg Neuts % (Manual) Lymphocytes % (Manual) Monocytes % (Manual) Eosinophils % (Manual) Basophils % (Manual) Nucleated RBC % Seg Neutrophils # 11.5 H Seg Neutrophils # Man Lymphocytes # (Manual) Monocytes # (Manual) Eosinophils # (Manual) Basophils # (Manual) PT INR Fibrinogen dRVVT Confirm Interp Factor V Activity POC ABG pH 7.308 L POC ABG pCO2 31.9 L POC ABG pO2 148 H ABG pO2 ABG HCO3 ABG Base Excess ABG Hemoglobin Oxyhemoglobin Sodium 147 H Potassium Chloride 114.2 H Carbon Dioxide 15 L BUN 120 H Creatinine 3.9 H Glucose 156 H POC Glucose Lactic Acid Calcium 8.2 L Ionized Calcium Phosphorus Magnesium Direct Bilirubin AST ALT Alkaline Phosphatase Lactate Dehydrogenase Troponin T C-Reactive Protein Total Protein Albumin Prealbumin Triglycerides Cholesterol LDL Cholesterol Direct HDL Cholesterol 25-OH Vitamin D Total PTH Intact Urine pH Urine WBC (Auto) Urine Creatinine Urine Total Protein Fluid Total Protein Vancomycin Trough Rheumatoid Factor Complement C4 Miscellaneous Test Crossmatch 09/21/16 09/21/16 09/21/16 12:00 12:03 13:00 WBC RBC Hgb Hct MCV MCH MCHC RDW Plt Count Lymph % (Auto) [place] % (Auto) Lymph # [place] # Baso # Seg Neutrophils % Seg Neuts % (Manual) Lymphocytes % (Manual) Monocytes % (Manual) Eosinophils % (Manual) Basophils % (Manual) Nucleated RBC % Seg Neutrophils # Seg Neutrophils # Man Lymphocytes # (Manual) Monocytes # (Manual) Eosinophils # (Manual) Basophils # (Manual) PT INR Fibrinogen dRVVT Confirm Interp Factor V Activity POC ABG pH POC ABG pCO2 POC ABG pO2 ABG pO2 ABG HCO3 ABG Base Excess ABG Hemoglobin Oxyhemoglobin Sodium Potassium Chloride Carbon Dioxide BUN Creatinine Glucose POC Glucose 163 H Lactic Acid Calcium Ionized Calcium Phosphorus Magnesium Direct Bilirubin AST ALT Alkaline Phosphatase Lactate Dehydrogenase Troponin T C-Reactive Protein Total Protein Albumin Prealbumin Triglycerides Cholesterol LDL Cholesterol Direct HDL Cholesterol 25-OH Vitamin D Total PTH Intact Urine pH Urine WBC (Auto) Urine Creatinine 54.8 H Urine Total Protein Fluid Total Protein Vancomycin Trough 2.3 L Rheumatoid Factor Complement C4 Miscellaneous Test Crossmatch 09/21/16 09/21/16 09/22/16 16:51 23:17 06:27 WBC RBC Hgb Hct MCV MCH MCHC RDW Plt Count Lymph % (Auto) [place] % (Auto) Lymph # [place] # Baso # Seg Neutrophils % Seg Neuts % (Manual) Lymphocytes % (Manual) Monocytes % (Manual) Eosinophils % (Manual) Basophils % (Manual) Nucleated RBC % Seg Neutrophils # Seg Neutrophils # Man Lymphocytes # (Manual) Monocytes # (Manual) Eosinophils # (Manual) Basophils # (Manual) PT INR Fibrinogen dRVVT Confirm Interp Factor V Activity POC ABG pH POC ABG pCO2 POC ABG pO2 ABG pO2 ABG HCO3 ABG Base Excess ABG Hemoglobin Oxyhemoglobin Sodium Potassium Chloride Carbon Dioxide BUN Creatinine Glucose POC Glucose 206 H 114 H 115 H Lactic Acid Calcium Ionized Calcium Phosphorus Magnesium Direct Bilirubin AST ALT Alkaline Phosphatase Lactate Dehydrogenase Troponin T C-Reactive Protein Total Protein Albumin Prealbumin Triglycerides Cholesterol LDL Cholesterol Direct HDL Cholesterol 25-OH Vitamin D Total PTH Intact Urine pH Urine WBC (Auto) Urine Creatinine Urine Total Protein Fluid Total Protein Vancomycin Trough Rheumatoid Factor Complement C4 Miscellaneous Test Crossmatch 09/22/16 09/22/16 09/22/16 07:50 07:50 12:00 WBC 17.8 H RBC 3.04 L Hgb 8.0 L Hct 24.7 L MCV MCH 26 L MCHC RDW 21.6 H Plt Count Lymph % (Auto) [place] % (Auto) Lymph # [place] # Baso # Seg Neutrophils % Seg Neuts % (Manual) Lymphocytes % (Manual) Monocytes % (Manual) Eosinophils % (Manual) Basophils % (Manual) Nucleated RBC % Seg Neutrophils # Seg Neutrophils # Man Lymphocytes # (Manual) Monocytes # (Manual) Eosinophils # (Manual) Basophils # (Manual) PT INR Fibrinogen dRVVT Confirm Interp Factor V Activity POC ABG pH POC ABG pCO2 POC ABG pO2 ABG pO2 ABG HCO3 ABG Base Excess ABG Hemoglobin Oxyhemoglobin Sodium 150 H Potassium Chloride 118.2 H Carbon Dioxide 14 L BUN 111 H Creatinine 3.7 H Glucose 157 H POC Glucose 183 H Lactic Acid Calcium Ionized Calcium Phosphorus Magnesium Direct Bilirubin AST ALT Alkaline Phosphatase Lactate Dehydrogenase Troponin T C-Reactive Protein Total Protein Albumin Prealbumin Triglycerides Cholesterol LDL Cholesterol Direct HDL Cholesterol 25-OH Vitamin D Total PTH Intact Urine pH Urine WBC (Auto) Urine Creatinine Urine Total Protein Fluid Total Protein Vancomycin Trough Rheumatoid Factor Complement C4 Miscellaneous Test Crossmatch 09/22/16 09/22/16 09/23/16 17:29 23:10 05:00 WBC 19.2 H RBC 3.13 L Hgb 8.0 L Hct 25.2 L MCV MCH 26 L MCHC RDW 22.1 H Plt Count Lymph % (Auto) [place] % (Auto) Lymph # [place] # Baso # Seg Neutrophils % Seg Neuts % (Manual) 92.0 H Lymphocytes % (Manual) 3.0 L Monocytes % (Manual) Eosinophils % (Manual) Basophils % (Manual) Nucleated RBC % Seg Neutrophils # Seg Neutrophils # Man 17.7 H Lymphocytes # (Manual) 0.6 L Monocytes # (Manual) Eosinophils # (Manual) Basophils # (Manual) PT INR Fibrinogen dRVVT Confirm Interp Factor V Activity POC ABG pH POC ABG pCO2 POC ABG pO2 ABG pO2 ABG HCO3 ABG Base Excess ABG Hemoglobin Oxyhemoglobin Sodium Potassium Chloride Carbon Dioxide BUN Creatinine Glucose POC Glucose 197 H 169 H Lactic Acid Calcium Ionized Calcium Phosphorus Magnesium Direct Bilirubin AST ALT Alkaline Phosphatase Lactate Dehydrogenase Troponin T C-Reactive Protein Total Protein Albumin Prealbumin Triglycerides Cholesterol LDL Cholesterol Direct HDL Cholesterol 25-OH Vitamin D Total PTH Intact Urine pH Urine WBC (Auto) Urine Creatinine Urine Total Protein Fluid Total Protein Vancomycin Trough Rheumatoid Factor Complement C4 Miscellaneous Test Crossmatch 09/23/16 09/23/16 09/23/16 05:00 05:00 05:10 WBC RBC Hgb Hct MCV MCH MCHC RDW Plt Count Lymph % (Auto) [place] % (Auto) Lymph # [place] # Baso # Seg Neutrophils % Seg Neuts % (Manual) Lymphocytes % (Manual) Monocytes % (Manual) Eosinophils % (Manual) Basophils % (Manual) Nucleated RBC % Seg Neutrophils # Seg Neutrophils # Man Lymphocytes # (Manual) Monocytes # (Manual) Eosinophils # (Manual) Basophils # (Manual) PT INR Fibrinogen dRVVT Confirm Interp Factor V Activity POC ABG pH POC ABG pCO2 POC ABG pO2 ABG pO2 ABG HCO3 ABG Base Excess ABG Hemoglobin Oxyhemoglobin Sodium 147 H Potassium 3.2 L Chloride 115.7 H Carbon Dioxide 13 L BUN 111 H Creatinine 3.8 H Glucose 194 H POC Glucose 188 H Lactic Acid Calcium 7.3 L D Ionized Calcium Phosphorus Magnesium Direct Bilirubin AST ALT Alkaline Phosphatase Lactate Dehydrogenase Troponin T C-Reactive Protein 3.20 H Total Protein Albumin Prealbumin Triglycerides Cholesterol LDL Cholesterol Direct HDL Cholesterol 25-OH Vitamin D Total PTH Intact Urine pH Urine WBC (Auto) Urine Creatinine Urine Total Protein Fluid Total Protein Vancomycin Trough Rheumatoid Factor Complement C4 Miscellaneous Test Crossmatch 09/23/16 09/23/16 09/23/16 11:37 12:29 18:01 WBC RBC Hgb Hct MCV MCH MCHC RDW Plt Count Lymph % (Auto) [place] % (Auto) Lymph # [place] # Baso # Seg Neutrophils % Seg Neuts % (Manual) Lymphocytes % (Manual) Monocytes % (Manual) Eosinophils % (Manual) Basophils % (Manual) Nucleated RBC % Seg Neutrophils # Seg Neutrophils # Man Lymphocytes # (Manual) Monocytes # (Manual) Eosinophils # (Manual) Basophils # (Manual) PT INR Fibrinogen dRVVT Confirm Interp Factor V Activity POC ABG pH POC ABG pCO2 18.9 L POC ABG pO2 143 H ABG pO2 ABG HCO3 ABG Base Excess ABG Hemoglobin Oxyhemoglobin Sodium Potassium Chloride Carbon Dioxide BUN Creatinine Glucose POC Glucose 153 H 108 H Lactic Acid Calcium Ionized Calcium Phosphorus Magnesium Direct Bilirubin AST ALT Alkaline Phosphatase Lactate Dehydrogenase Troponin T C-Reactive Protein Total Protein Albumin Prealbumin Triglycerides Cholesterol LDL Cholesterol Direct HDL Cholesterol 25-OH Vitamin D Total PTH Intact Urine pH Urine WBC (Auto) Urine Creatinine Urine Total Protein Fluid Total Protein Vancomycin Trough Rheumatoid Factor Complement C4 Miscellaneous Test Crossmatch 09/23/16 09/23/16 09/24/16 21:19 23:43 05:16 WBC RBC Hgb Hct MCV MCH MCHC RDW Plt Count Lymph % (Auto) [place] % (Auto) Lymph # [place] # Baso # Seg Neutrophils % Seg Neuts % (Manual) Lymphocytes % (Manual) Monocytes % (Manual) Eosinophils % (Manual) Basophils % (Manual) Nucleated RBC % Seg Neutrophils # Seg Neutrophils # Man Lymphocytes # (Manual) Monocytes # (Manual) Eosinophils # (Manual) Basophils # (Manual) PT INR Fibrinogen dRVVT Confirm Interp Factor V Activity POC ABG pH POC ABG pCO2 17.3 L POC ABG pO2 112 H ABG pO2 ABG HCO3 ABG Base Excess ABG Hemoglobin Oxyhemoglobin Sodium Potassium Chloride Carbon Dioxide BUN Creatinine Glucose POC Glucose 143 H 164 H Lactic Acid Calcium Ionized Calcium Phosphorus Magnesium Direct Bilirubin AST ALT Alkaline Phosphatase Lactate Dehydrogenase Troponin T C-Reactive Protein Total Protein Albumin Prealbumin Triglycerides Cholesterol LDL Cholesterol Direct HDL Cholesterol 25-OH Vitamin D Total PTH Intact Urine pH Urine WBC (Auto) Urine Creatinine Urine Total Protein Fluid Total Protein Vancomycin Trough Rheumatoid Factor Complement C4 Miscellaneous Test Crossmatch 09/24/16 09/24/16 09/24/16 05:21 11:58 17:06 WBC RBC Hgb Hct MCV MCH MCHC RDW Plt Count Lymph % (Auto) [place] % (Auto) Lymph # [place] # Baso # Seg Neutrophils % Seg Neuts % (Manual) Lymphocytes % (Manual) Monocytes % (Manual) Eosinophils % (Manual) Basophils % (Manual) Nucleated RBC % Seg Neutrophils # Seg Neutrophils # Man Lymphocytes # (Manual) Monocytes # (Manual) Eosinophils # (Manual) Basophils # (Manual) PT INR Fibrinogen dRVVT Confirm Interp Factor V Activity POC ABG pH POC ABG pCO2 POC ABG pO2 ABG pO2 ABG HCO3 ABG Base Excess ABG Hemoglobin Oxyhemoglobin Sodium Potassium Chloride Carbon Dioxide 10 L BUN 103 H Creatinine 4.3 H Glucose 163 H POC Glucose 173 H 167 H Lactic Acid Calcium 6.5 L Ionized Calcium Phosphorus Magnesium Direct Bilirubin AST ALT Alkaline Phosphatase Lactate Dehydrogenase Troponin T C-Reactive Protein Total Protein Albumin Prealbumin Triglycerides Cholesterol LDL Cholesterol Direct HDL Cholesterol 25-OH Vitamin D Total PTH Intact Urine pH Urine WBC (Auto) Urine Creatinine Urine Total Protein Fluid Total Protein Vancomycin Trough Rheumatoid Factor Complement C4 Miscellaneous Test Crossmatch 09/24/16 09/24/16 09/24/16 20:15 21:02 23:48 WBC RBC Hgb Hct MCV MCH MCHC RDW Plt Count Lymph % (Auto) [place] % (Auto) Lymph # [place] # Baso # Seg Neutrophils % Seg Neuts % (Manual) Lymphocytes % (Manual) Monocytes % (Manual) Eosinophils % (Manual) Basophils % (Manual) Nucleated RBC % Seg Neutrophils # Seg Neutrophils # Man Lymphocytes # (Manual) Monocytes # (Manual) Eosinophils # (Manual) Basophils # (Manual) PT INR Fibrinogen dRVVT Confirm Interp Factor V Activity POC ABG pH 7.288 L POC ABG pCO2 30.2 L 21.5 L POC ABG pO2 32 L 39 L ABG pO2 ABG HCO3 ABG Base Excess ABG Hemoglobin Oxyhemoglobin Sodium Potassium Chloride Carbon Dioxide BUN Creatinine Glucose POC Glucose 109 H Lactic Acid Calcium Ionized Calcium Phosphorus Magnesium Direct Bilirubin AST ALT Alkaline Phosphatase Lactate Dehydrogenase Troponin T C-Reactive Protein Total Protein Albumin Prealbumin Triglycerides Cholesterol LDL Cholesterol Direct HDL Cholesterol 25-OH Vitamin D Total PTH Intact Urine pH Urine WBC (Auto) Urine Creatinine Urine Total Protein Fluid Total Protein Vancomycin Trough Rheumatoid Factor Complement C4 Miscellaneous Test Crossmatch 09/25/16 09/25/16 09/25/16 04:20 04:20 04:20 WBC RBC 2.58 L Hgb 7.0 L Hct 21.0 L MCV MCH 27 L MCHC RDW 23.8 H Plt Count Lymph % (Auto) [place] % (Auto) Lymph # [place] # Baso # Seg Neutrophils % Seg Neuts % (Manual) Lymphocytes % (Manual) 12.0 L Monocytes % (Manual) Eosinophils % (Manual) 7.0 H Basophils % (Manual) 2.0 H Nucleated RBC % Seg Neutrophils # Seg Neutrophils # Man Lymphocytes # (Manual) 0.9 L Monocytes # (Manual) Eosinophils # (Manual) 0.5 H Basophils # (Manual) PT INR Fibrinogen dRVVT Confirm Interp Factor V Activity POC ABG pH POC ABG pCO2 POC ABG pO2 ABG pO2 ABG HCO3 ABG Base Excess ABG Hemoglobin Oxyhemoglobin Sodium Potassium Chloride Carbon Dioxide 15 L BUN 72 H Creatinine 3.8 H Glucose POC Glucose Lactic Acid Calcium 6.0 L Ionized Calcium Phosphorus 4.60 H Magnesium 1.60 L Direct Bilirubin AST ALT Alkaline Phosphatase Lactate Dehydrogenase Troponin T C-Reactive Protein Total Protein Albumin Prealbumin Triglycerides Cholesterol LDL Cholesterol Direct HDL Cholesterol 25-OH Vitamin D Total PTH Intact Urine pH Urine WBC (Auto) Urine Creatinine Urine Total Protein Fluid Total Protein Vancomycin Trough Rheumatoid Factor Complement C4 Miscellaneous Test Crossmatch 09/25/16 09/25/16 09/25/16 04:57 08:02 10:30 WBC RBC Hgb Hct MCV MCH MCHC RDW Plt Count Lymph % (Auto) [place] % (Auto) Lymph # [place] # Baso # Seg Neutrophils % Seg Neuts % (Manual) Lymphocytes % (Manual) Monocytes % (Manual) Eosinophils % (Manual) Basophils % (Manual) Nucleated RBC % Seg Neutrophils # Seg Neutrophils # Man Lymphocytes # (Manual) Monocytes # (Manual) Eosinophils # (Manual) Basophils # (Manual) PT INR Fibrinogen dRVVT Confirm Interp Factor V Activity POC ABG pH POC ABG pCO2 24.7 L POC ABG pO2 152 H ABG pO2 ABG HCO3 ABG Base Excess ABG Hemoglobin Oxyhemoglobin Sodium Potassium Chloride Carbon Dioxide BUN Creatinine Glucose POC Glucose 113 H Lactic Acid Calcium Ionized Calcium Phosphorus Magnesium Direct Bilirubin AST ALT Alkaline Phosphatase Lactate Dehydrogenase Troponin T C-Reactive Protein Total Protein Albumin Prealbumin Triglycerides Cholesterol LDL Cholesterol Direct HDL Cholesterol 25-OH Vitamin D Total PTH Intact Urine pH Urine WBC (Auto) Urine Creatinine Urine Total Protein Fluid Total Protein Vancomycin Trough Rheumatoid Factor Complement C4 Miscellaneous Test Crossmatch See Detail 09/25/16 09/25/16 09/25/16 12:05 17:44 23:47 WBC RBC Hgb Hct MCV MCH MCHC RDW Plt Count Lymph % (Auto) [place] % (Auto) Lymph # [place] # Baso # Seg Neutrophils % Seg Neuts % (Manual) Lymphocytes % (Manual) Monocytes % (Manual) Eosinophils % (Manual) Basophils % (Manual) Nucleated RBC % Seg Neutrophils # Seg Neutrophils # Man Lymphocytes # (Manual) Monocytes # (Manual) Eosinophils # (Manual) Basophils # (Manual) PT INR Fibrinogen dRVVT Confirm Interp Factor V Activity POC ABG pH POC ABG pCO2 POC ABG pO2 ABG pO2 ABG HCO3 ABG Base Excess ABG Hemoglobin Oxyhemoglobin Sodium Potassium Chloride Carbon Dioxide BUN Creatinine Glucose POC Glucose 117 H 119 H 150 H Lactic Acid Calcium Ionized Calcium Phosphorus Magnesium Direct Bilirubin AST ALT Alkaline Phosphatase Lactate Dehydrogenase Troponin T C-Reactive Protein Total Protein Albumin Prealbumin Triglycerides Cholesterol LDL Cholesterol Direct HDL Cholesterol 25-OH Vitamin D Total PTH Intact Urine pH Urine WBC (Auto) Urine Creatinine Urine Total Protein Fluid Total Protein Vancomycin Trough Rheumatoid Factor Complement C4 Miscellaneous Test Crossmatch 09/26/16 09/26/16 09/26/16 04:25 04:25 04:25 WBC RBC 2.65 L Hgb 7.4 L Hct 21.6 L MCV MCH MCHC RDW 22.5 H Plt Count Lymph % (Auto) [place] % (Auto) Lymph # [place] # Baso # Seg Neutrophils % Seg Neuts % (Manual) Lymphocytes % (Manual) 6.0 L Monocytes % (Manual) Eosinophils % (Manual) 11.0 H Basophils % (Manual) Nucleated RBC % Seg Neutrophils # Seg Neutrophils # Man Lymphocytes # (Manual) 0.4 L Monocytes # (Manual) Eosinophils # (Manual) 0.6 H Basophils # (Manual) PT INR Fibrinogen dRVVT Confirm Interp Factor V Activity POC ABG pH POC ABG pCO2 POC ABG pO2 ABG pO2 ABG HCO3 ABG Base Excess ABG Hemoglobin Oxyhemoglobin Sodium Potassium Chloride 97.0 L Carbon Dioxide 19 L BUN 43 H Creatinine 2.6 H Glucose 130 H POC Glucose Lactic Acid 4.40 H* Calcium 6.7 L Ionized Calcium Phosphorus Magnesium Direct Bilirubin AST ALT Alkaline Phosphatase Lactate Dehydrogenase Troponin T C-Reactive Protein Total Protein Albumin Prealbumin Triglycerides Cholesterol LDL Cholesterol Direct HDL Cholesterol 25-OH Vitamin D Total PTH Intact Urine pH Urine WBC (Auto) Urine Creatinine Urine Total Protein Fluid Total Protein Vancomycin Trough Rheumatoid Factor Complement C4 Miscellaneous Test Crossmatch 09/26/16 09/26/16 09/26/16 05:20 11:44 12:12 WBC RBC Hgb Hct MCV MCH MCHC RDW Plt Count Lymph % (Auto) [place] % (Auto) Lymph # [place] # Baso # Seg Neutrophils % Seg Neuts % (Manual) Lymphocytes % (Manual) Monocytes % (Manual) Eosinophils % (Manual) Basophils % (Manual) Nucleated RBC % Seg Neutrophils # Seg Neutrophils # Man Lymphocytes # (Manual) Monocytes # (Manual) Eosinophils # (Manual) Basophils # (Manual) PT INR Fibrinogen dRVVT Confirm Interp Factor V Activity POC ABG pH POC ABG pCO2 27.0 L POC ABG pO2 69 L ABG pO2 ABG HCO3 ABG Base Excess ABG Hemoglobin Oxyhemoglobin Sodium Potassium Chloride Carbon Dioxide BUN Creatinine Glucose POC Glucose 121 H 128 H Lactic Acid Calcium Ionized Calcium Phosphorus Magnesium Direct Bilirubin AST ALT Alkaline Phosphatase Lactate Dehydrogenase Troponin T C-Reactive Protein Total Protein Albumin Prealbumin Triglycerides Cholesterol LDL Cholesterol Direct HDL Cholesterol 25-OH Vitamin D Total PTH Intact Urine pH Urine WBC (Auto) Urine Creatinine Urine Total Protein Fluid Total Protein Vancomycin Trough Rheumatoid Factor Complement C4 Miscellaneous Test Crossmatch 09/26/16 09/26/16 09/27/16 18:31 23:40 08:20 WBC RBC Hgb Hct MCV MCH MCHC RDW Plt Count Lymph % (Auto) [place] % (Auto) Lymph # [place] # Baso # Seg Neutrophils % Seg Neuts % (Manual) Lymphocytes % (Manual) Monocytes % (Manual) Eosinophils % (Manual) Basophils % (Manual) Nucleated RBC % Seg Neutrophils # Seg Neutrophils # Man Lymphocytes # (Manual) Monocytes # (Manual) Eosinophils # (Manual) Basophils # (Manual) PT INR Fibrinogen dRVVT Confirm Interp Factor V Activity POC ABG pH POC ABG pCO2 POC ABG pO2 ABG pO2 ABG HCO3 ABG Base Excess ABG Hemoglobin Oxyhemoglobin Sodium Potassium Chloride Carbon Dioxide BUN Creatinine Glucose POC Glucose 120 H 133 H Lactic Acid 4.10 H* Calcium Ionized Calcium Phosphorus Magnesium Direct Bilirubin AST ALT Alkaline Phosphatase Lactate Dehydrogenase Troponin T C-Reactive Protein Total Protein Albumin Prealbumin Triglycerides Cholesterol LDL Cholesterol Direct HDL Cholesterol 25-OH Vitamin D Total PTH Intact Urine pH Urine WBC (Auto) Urine Creatinine Urine Total Protein Fluid Total Protein Vancomycin Trough Rheumatoid Factor Complement C4 Miscellaneous Test Crossmatch 09/27/16 09/27/16 09/27/16 11:23 15:00 18:15 WBC RBC Hgb Hct MCV MCH MCHC RDW Plt Count Lymph % (Auto) [place] % (Auto) Lymph # [place] # Baso # Seg Neutrophils % Seg Neuts % (Manual) Lymphocytes % (Manual) Monocytes % (Manual) Eosinophils % (Manual) Basophils % (Manual) Nucleated RBC % Seg Neutrophils # Seg Neutrophils # Man Lymphocytes # (Manual) Monocytes # (Manual) Eosinophils # (Manual) Basophils # (Manual) PT INR Fibrinogen dRVVT Confirm Interp Factor V Activity POC ABG pH 7.459 H POC ABG pCO2 27.1 L POC ABG pO2 140 H ABG pO2 ABG HCO3 ABG Base Excess ABG Hemoglobin Oxyhemoglobin Sodium Potassium Chloride Carbon Dioxide BUN Creatinine Glucose POC Glucose 114 H 127 H Lactic Acid Calcium Ionized Calcium Phosphorus Magnesium Direct Bilirubin AST ALT Alkaline Phosphatase Lactate Dehydrogenase Troponin T C-Reactive Protein Total Protein Albumin Prealbumin Triglycerides Cholesterol LDL Cholesterol Direct HDL Cholesterol 25-OH Vitamin D Total PTH Intact Urine pH Urine WBC (Auto) Urine Creatinine Urine Total Protein Fluid Total Protein Vancomycin Trough Rheumatoid Factor Complement C4 Miscellaneous Test Crossmatch 09/27/16 09/27/16 09/28/16 Unknown Unknown 03:45 WBC RBC 2.49 L Hgb 6.8 L Hct 20.7 L MCV MCH 27 L MCHC RDW 22.1 H Plt Count Lymph % (Auto) [place] % (Auto) Lymph # [place] # Baso # Seg Neutrophils % Seg Neuts % (Manual) 32.0 L Lymphocytes % (Manual) 12.0 L Monocytes % (Manual) 11.0 H Eosinophils % (Manual) 10.0 H Basophils % (Manual) Nucleated RBC % Seg Neutrophils # Seg Neutrophils # Man Lymphocytes # (Manual) 1.0 L Monocytes # (Manual) 0.9 H Eosinophils # (Manual) 0.8 H Basophils # (Manual) PT INR Fibrinogen dRVVT Confirm Interp Factor V Activity POC ABG pH POC ABG pCO2 POC ABG pO2 ABG pO2 ABG HCO3 ABG Base Excess ABG Hemoglobin Oxyhemoglobin Sodium 135 L 135 L Potassium 3.5 L Chloride 93.6 L 94.4 L Carbon Dioxide 17 L 21 L BUN 45 H 28 H Creatinine 3.3 H 2.5 H Glucose 106 H POC Glucose Lactic Acid Calcium 7.3 L 7.1 L Ionized Calcium Phosphorus Magnesium Direct Bilirubin AST ALT Alkaline Phosphatase Lactate Dehydrogenase Troponin T C-Reactive Protein Total Protein Albumin Prealbumin Triglycerides Cholesterol LDL Cholesterol Direct HDL Cholesterol 25-OH Vitamin D Total PTH Intact Urine pH Urine WBC (Auto) Urine Creatinine Urine Total Protein Fluid Total Protein Vancomycin Trough Rheumatoid Factor Complement C4 Miscellaneous Test Crossmatch 09/28/16 09/28/16 09/28/16 03:45 07:25 11:58 WBC 13.3 H RBC 3.01 L Hgb 8.4 L Hct 25.0 L MCV MCH MCHC RDW 20.5 H Plt Count 128 L Lymph % (Auto) [place] % (Auto) Lymph # [place] # Baso # Seg Neutrophils % Seg Neuts % (Manual) Lymphocytes % (Manual) 7.0 L Monocytes % (Manual) Eosinophils % (Manual) 6.0 H Basophils % (Manual) Nucleated RBC % Seg Neutrophils # Seg Neutrophils # Man Lymphocytes # (Manual) 0.9 L Monocytes # (Manual) Eosinophils # (Manual) 0.8 H Basophils # (Manual) PT INR Fibrinogen dRVVT Confirm Interp Factor V Activity POC ABG pH POC ABG pCO2 POC ABG pO2 ABG pO2 ABG HCO3 ABG Base Excess ABG Hemoglobin Oxyhemoglobin Sodium Potassium Chloride Carbon Dioxide BUN Creatinine Glucose POC Glucose 121 H Lactic Acid 4.50 H* Calcium Ionized Calcium Phosphorus Magnesium Direct Bilirubin AST ALT Alkaline Phosphatase Lactate Dehydrogenase Troponin T C-Reactive Protein Total Protein Albumin Prealbumin Triglycerides Cholesterol LDL Cholesterol Direct HDL Cholesterol 25-OH Vitamin D Total PTH Intact Urine pH Urine WBC (Auto) Urine Creatinine Urine Total Protein Fluid Total Protein Vancomycin Trough Rheumatoid Factor Complement C4 Miscellaneous Test Crossmatch 09/29/16 09/29/16 09/29/16 06:45 06:45 06:45 WBC 14.9 H RBC 2.74 L Hgb 7.6 L Hct 23.2 L MCV MCH MCHC RDW 20.5 H Plt Count 81 L Lymph % (Auto) [place] % (Auto) Lymph # [place] # Baso # Seg Neutrophils % Seg Neuts % (Manual) 81.0 H Lymphocytes % (Manual) 4.0 L Monocytes % (Manual) Eosinophils % (Manual) Basophils % (Manual) Nucleated RBC % Seg Neutrophils # Seg Neutrophils # Man 12.1 H Lymphocytes # (Manual) 0.6 L Monocytes # (Manual) Eosinophils # (Manual) Basophils # (Manual) PT INR Fibrinogen dRVVT Confirm Interp Factor V Activity POC ABG pH POC ABG pCO2 POC ABG pO2 ABG pO2 ABG HCO3 ABG Base Excess ABG Hemoglobin Oxyhemoglobin Sodium 133 L Potassium 3.4 L Chloride 92.5 L Carbon Dioxide 21 L BUN 33 H Creatinine 3.0 H Glucose POC Glucose Lactic Acid Calcium 6.6 L Ionized Calcium Phosphorus Magnesium 1.40 L Direct Bilirubin 0.9 H AST ALT Alkaline Phosphatase Lactate Dehydrogenase Troponin T C-Reactive Protein Total Protein 4.3 L Albumin 1.3 L Prealbumin Triglycerides Cholesterol LDL Cholesterol Direct HDL Cholesterol 25-OH Vitamin D Total PTH Intact Urine pH Urine WBC (Auto) Urine Creatinine Urine Total Protein Fluid Total Protein Vancomycin Trough Rheumatoid Factor Complement C4 Miscellaneous Test Crossmatch 09/29/16 09/29/16 09/30/16 17:52 20:12 00:07 WBC RBC Hgb Hct MCV MCH MCHC RDW Plt Count Lymph % (Auto) [place] % (Auto) Lymph # [place] # Baso # Seg Neutrophils % Seg Neuts % (Manual) Lymphocytes % (Manual) Monocytes % (Manual) Eosinophils % (Manual) Basophils % (Manual) Nucleated RBC % Seg Neutrophils # Seg Neutrophils # Man Lymphocytes # (Manual) Monocytes # (Manual) Eosinophils # (Manual) Basophils # (Manual) PT INR Fibrinogen dRVVT Confirm Interp Factor V Activity POC ABG pH POC ABG pCO2 POC ABG pO2 ABG pO2 ABG HCO3 ABG Base Excess ABG Hemoglobin Oxyhemoglobin Sodium Potassium Chloride Carbon Dioxide BUN Creatinine Glucose POC Glucose 50 L 51 L Lactic Acid Calcium Ionized Calcium Phosphorus Magnesium Direct Bilirubin AST ALT Alkaline Phosphatase Lactate Dehydrogenase Troponin T 0.204 H* C-Reactive Protein Total Protein Albumin Prealbumin Triglycerides Cholesterol 31 L LDL Cholesterol Direct 4 L HDL Cholesterol 3 L 25-OH Vitamin D Total PTH Intact Urine pH Urine WBC (Auto) Urine Creatinine Urine Total Protein Fluid Total Protein Vancomycin Trough Rheumatoid Factor Complement C4 Miscellaneous Test Crossmatch 09/30/16 09/30/16 09/30/16 01:30 05:15 06:10 WBC RBC Hgb Hct MCV MCH MCHC RDW Plt Count Lymph % (Auto) [place] % (Auto) Lymph # [place] # Baso # Seg Neutrophils % Seg Neuts % (Manual) Lymphocytes % (Manual) Monocytes % (Manual) Eosinophils % (Manual) Basophils % (Manual) Nucleated RBC % Seg Neutrophils # Seg Neutrophils # Man Lymphocytes # (Manual) Monocytes # (Manual) Eosinophils # (Manual) Basophils # (Manual) PT INR Fibrinogen dRVVT Confirm Interp Factor V Activity POC ABG pH POC ABG pCO2 POC ABG pO2 ABG pO2 ABG HCO3 ABG Base Excess ABG Hemoglobin Oxyhemoglobin Sodium 133 L Potassium 3.2 L Chloride 93.2 L Carbon Dioxide 19 L BUN 36 H Creatinine 3.2 H Glucose 104 H POC Glucose 167 H 146 H Lactic Acid Calcium 6.4 L Ionized Calcium Phosphorus Magnesium 1.60 L Direct Bilirubin AST ALT Alkaline Phosphatase Lactate Dehydrogenase Troponin T C-Reactive Protein Total Protein Albumin Prealbumin Triglycerides Cholesterol LDL Cholesterol Direct HDL Cholesterol 25-OH Vitamin D Total PTH Intact Urine pH Urine WBC (Auto) Urine Creatinine Urine Total Protein Fluid Total Protein Vancomycin Trough Rheumatoid Factor Complement C4 Miscellaneous Test Crossmatch 09/30/16 09/30/16 09/30/16 11:26 13:39 18:38 WBC RBC Hgb Hct MCV MCH MCHC RDW Plt Count Lymph % (Auto) [place] % (Auto) Lymph # [place] # Baso # Seg Neutrophils % Seg Neuts % (Manual) Lymphocytes % (Manual) Monocytes % (Manual) Eosinophils % (Manual) Basophils % (Manual) Nucleated RBC % Seg Neutrophils # Seg Neutrophils # Man Lymphocytes # (Manual) Monocytes # (Manual) Eosinophils # (Manual) Basophils # (Manual) PT INR Fibrinogen dRVVT Confirm Interp Factor V Activity POC ABG pH 7.479 H POC ABG pCO2 29.8 L POC ABG pO2 117 H ABG pO2 ABG HCO3 ABG Base Excess ABG Hemoglobin Oxyhemoglobin Sodium Potassium Chloride Carbon Dioxide BUN Creatinine Glucose POC Glucose 140 H 122 H Lactic Acid Calcium Ionized Calcium Phosphorus Magnesium Direct Bilirubin AST ALT Alkaline Phosphatase Lactate Dehydrogenase Troponin T C-Reactive Protein Total Protein Albumin Prealbumin Triglycerides Cholesterol LDL Cholesterol Direct HDL Cholesterol 25-OH Vitamin D Total PTH Intact Urine pH Urine WBC (Auto) Urine Creatinine Urine Total Protein Fluid Total Protein Vancomycin Trough Rheumatoid Factor Complement C4 Miscellaneous Test Crossmatch 10/01/16 10/01/16 10/01/16 06:00 06:00 12:37 WBC 12.6 H RBC 2.75 L Hgb 7.3 L Hct 23.3 L MCV MCH 27 L MCHC RDW 20.6 H Plt Count 72 L Lymph % (Auto) [place] % (Auto) Lymph # [place] # Baso # Seg Neutrophils % Seg Neuts % (Manual) 31.0 L Lymphocytes % (Manual) 8.0 L Monocytes % (Manual) Eosinophils % (Manual) Basophils % (Manual) Nucleated RBC % 3.0 H Seg Neutrophils # Seg Neutrophils # Man Lymphocytes # (Manual) 1.0 L Monocytes # (Manual) Eosinophils # (Manual) Basophils # (Manual) PT INR Fibrinogen dRVVT Confirm Interp Factor V Activity POC ABG pH POC ABG pCO2 POC ABG pO2 ABG pO2 ABG HCO3 ABG Base Excess ABG Hemoglobin Oxyhemoglobin Sodium 127 L Potassium Chloride 86.8 L Carbon Dioxide 20 L BUN 42 H Creatinine 3.5 H Glucose POC Glucose 65 L Lactic Acid Calcium 7.0 L Ionized Calcium Phosphorus Magnesium Direct Bilirubin AST ALT Alkaline Phosphatase Lactate Dehydrogenase Troponin T C-Reactive Protein Total Protein Albumin Prealbumin Triglycerides Cholesterol LDL Cholesterol Direct HDL Cholesterol 25-OH Vitamin D Total PTH Intact Urine pH Urine WBC (Auto) Urine Creatinine Urine Total Protein Fluid Total Protein Vancomycin Trough Rheumatoid Factor Complement C4 Miscellaneous Test Crossmatch 10/01/16 10/01/16 10/02/16 17:39 23:32 00:59 WBC RBC Hgb Hct MCV MCH MCHC RDW Plt Count Lymph % (Auto) [place] % (Auto) Lymph # [place] # Baso # Seg Neutrophils % Seg Neuts % (Manual) Lymphocytes % (Manual) Monocytes % (Manual) Eosinophils % (Manual) Basophils % (Manual) Nucleated RBC % Seg Neutrophils # Seg Neutrophils # Man Lymphocytes # (Manual) Monocytes # (Manual) Eosinophils # (Manual) Basophils # (Manual) PT INR Fibrinogen dRVVT Confirm Interp Factor V Activity POC ABG pH POC ABG pCO2 POC ABG pO2 ABG pO2 ABG HCO3 ABG Base Excess ABG Hemoglobin Oxyhemoglobin Sodium Potassium Chloride Carbon Dioxide BUN Creatinine Glucose POC Glucose 107 H 52 L 145 H Lactic Acid Calcium Ionized Calcium Phosphorus Magnesium Direct Bilirubin AST ALT Alkaline Phosphatase Lactate Dehydrogenase Troponin T C-Reactive Protein Total Protein Albumin Prealbumin Triglycerides Cholesterol LDL Cholesterol Direct HDL Cholesterol 25-OH Vitamin D Total PTH Intact Urine pH Urine WBC (Auto) Urine Creatinine Urine Total Protein Fluid Total Protein Vancomycin Trough Rheumatoid Factor Complement C4 Miscellaneous Test Crossmatch 10/02/16 10/02/16 10/02/16 10:30 10:50 10:50 WBC 14.7 H RBC 2.76 L Hgb 7.4 L Hct 23.6 L MCV MCH 27 L MCHC RDW 20.2 H Plt Count 79 L Lymph % (Auto) [place] % (Auto) Lymph # [place] # Baso # Seg Neutrophils % Seg Neuts % (Manual) 86.0 H Lymphocytes % (Manual) 6.0 L Monocytes % (Manual) Eosinophils % (Manual) Basophils % (Manual) Nucleated RBC % Seg Neutrophils # Seg Neutrophils # Man 12.6 H Lymphocytes # (Manual) 0.9 L Monocytes # (Manual) Eosinophils # (Manual) Basophils # (Manual) PT INR Fibrinogen dRVVT Confirm Interp Factor V Activity POC ABG pH 7.486 H POC ABG pCO2 30.1 L POC ABG pO2 108 H ABG pO2 ABG HCO3 ABG Base Excess ABG Hemoglobin Oxyhemoglobin Sodium 131 L Potassium 3.4 L Chloride 89.9 L Carbon Dioxide BUN 26 H Creatinine 2.6 H Glucose POC Glucose Lactic Acid Calcium 7.0 L Ionized Calcium Phosphorus Magnesium Direct Bilirubin AST ALT Alkaline Phosphatase Lactate Dehydrogenase Troponin T C-Reactive Protein Total Protein Albumin Prealbumin Triglycerides Cholesterol LDL Cholesterol Direct HDL Cholesterol 25-OH Vitamin D Total PTH Intact Urine pH Urine WBC (Auto) Urine Creatinine Urine Total Protein Fluid Total Protein Vancomycin Trough Rheumatoid Factor Complement C4 Miscellaneous Test Crossmatch 10/02/16 10/03/16 10/03/16 23:45 00:45 05:10 WBC 12.9 H RBC 2.77 L Hgb 7.6 L Hct 23.7 L MCV MCH 27 L MCHC RDW 19.7 H Plt Count 89 L Lymph % (Auto) [place] % (Auto) Lymph # [place] # Baso # Seg Neutrophils % Seg Neuts % (Manual) Lymphocytes % (Manual) 8.0 L Monocytes % (Manual) Eosinophils % (Manual) Basophils % (Manual) Nucleated RBC % Seg Neutrophils # 11.9 H Seg Neutrophils # Man Lymphocytes # (Manual) 1.0 L Monocytes # (Manual) Eosinophils # (Manual) Basophils # (Manual) PT INR Fibrinogen dRVVT Confirm Interp Factor V Activity POC ABG pH POC ABG pCO2 POC ABG pO2 ABG pO2 ABG HCO3 ABG Base Excess ABG Hemoglobin Oxyhemoglobin Sodium Potassium Chloride Carbon Dioxide BUN Creatinine Glucose POC Glucose 55 L 199 H Lactic Acid Calcium Ionized Calcium Phosphorus Magnesium Direct Bilirubin AST ALT Alkaline Phosphatase Lactate Dehydrogenase Troponin T C-Reactive Protein Total Protein Albumin Prealbumin Triglycerides Cholesterol LDL Cholesterol Direct HDL Cholesterol 25-OH Vitamin D Total PTH Intact Urine pH Urine WBC (Auto) Urine Creatinine Urine Total Protein Fluid Total Protein Vancomycin Trough Rheumatoid Factor Complement C4 Miscellaneous Test Crossmatch 10/03/16 10/03/16 10/03/16 05:10 12:14 13:18 WBC RBC Hgb Hct MCV MCH MCHC RDW Plt Count Lymph % (Auto) [place] % (Auto) Lymph # [place] # Baso # Seg Neutrophils % Seg Neuts % (Manual) Lymphocytes % (Manual) Monocytes % (Manual) Eosinophils % (Manual) Basophils % (Manual) Nucleated RBC % Seg Neutrophils # Seg Neutrophils # Man Lymphocytes # (Manual) Monocytes # (Manual) Eosinophils # (Manual) Basophils # (Manual) PT INR Fibrinogen dRVVT Confirm Interp Factor V Activity POC ABG pH POC ABG pCO2 POC ABG pO2 ABG pO2 ABG HCO3 ABG Base Excess ABG Hemoglobin Oxyhemoglobin Sodium 129 L Potassium 3.3 L Chloride 88.8 L Carbon Dioxide 20 L BUN 29 H Creatinine 2.8 H Glucose POC Glucose 68 L 127 H Lactic Acid Calcium 7.2 L Ionized Calcium Phosphorus Magnesium Direct Bilirubin AST ALT Alkaline Phosphatase Lactate Dehydrogenase Troponin T C-Reactive Protein Total Protein Albumin Prealbumin Triglycerides Cholesterol LDL Cholesterol Direct HDL Cholesterol 25-OH Vitamin D Total PTH Intact Urine pH Urine WBC (Auto) Urine Creatinine Urine Total Protein Fluid Total Protein Vancomycin Trough Rheumatoid Factor Complement C4 Miscellaneous Test Crossmatch 10/03/16 10/03/16 10/03/16 14:42 18:21 19:09 WBC RBC Hgb Hct MCV MCH MCHC RDW Plt Count Lymph % (Auto) [place] % (Auto) Lymph # [place] # Baso # Seg Neutrophils % Seg Neuts % (Manual) Lymphocytes % (Manual) Monocytes % (Manual) Eosinophils % (Manual) Basophils % (Manual) Nucleated RBC % Seg Neutrophils # Seg Neutrophils # Man Lymphocytes # (Manual) Monocytes # (Manual) Eosinophils # (Manual) Basophils # (Manual) PT INR Fibrinogen dRVVT Confirm Interp Factor V Activity POC ABG pH 7.499 H POC ABG pCO2 28.4 L POC ABG pO2 44 L ABG pO2 ABG HCO3 ABG Base Excess ABG Hemoglobin Oxyhemoglobin Sodium Potassium Chloride Carbon Dioxide BUN Creatinine Glucose POC Glucose 64 L 205 H Lactic Acid Calcium Ionized Calcium Phosphorus Magnesium Direct Bilirubin AST ALT Alkaline Phosphatase Lactate Dehydrogenase Troponin T C-Reactive Protein Total Protein Albumin Prealbumin Triglycerides Cholesterol LDL Cholesterol Direct HDL Cholesterol 25-OH Vitamin D Total PTH Intact Urine pH Urine WBC (Auto) Urine Creatinine Urine Total Protein Fluid Total Protein Vancomycin Trough Rheumatoid Factor Complement C4 Miscellaneous Test Crossmatch 10/03/16 10/04/16 10/04/16 23:33 04:18 06:30 WBC RBC 2.54 L Hgb 7.1 L Hct 21.7 L MCV MCH MCHC RDW 19.5 H Plt Count 76 L Lymph % (Auto) [place] % (Auto) Lymph # [place] # Baso # Seg Neutrophils % Seg Neuts % (Manual) 88.0 H Lymphocytes % (Manual) 6.0 L Monocytes % (Manual) Eosinophils % (Manual) Basophils % (Manual) Nucleated RBC % Seg Neutrophils # Seg Neutrophils # Man 8.8 H Lymphocytes # (Manual) 0.6 L Monocytes # (Manual) Eosinophils # (Manual) Basophils # (Manual) PT INR Fibrinogen dRVVT Confirm Interp Factor V Activity POC ABG pH 7.461 H POC ABG pCO2 33.6 L POC ABG pO2 211 H ABG pO2 ABG HCO3 ABG Base Excess ABG Hemoglobin Oxyhemoglobin Sodium Potassium Chloride Carbon Dioxide BUN Creatinine Glucose POC Glucose 136 H Lactic Acid Calcium Ionized Calcium Phosphorus Magnesium Direct Bilirubin AST ALT Alkaline Phosphatase Lactate Dehydrogenase Troponin T C-Reactive Protein Total Protein Albumin Prealbumin Triglycerides Cholesterol LDL Cholesterol Direct HDL Cholesterol 25-OH Vitamin D Total PTH Intact Urine pH Urine WBC (Auto) Urine Creatinine Urine Total Protein Fluid Total Protein Vancomycin Trough Rheumatoid Factor Complement C4 Miscellaneous Test Crossmatch 10/04/16 10/04/16 10/04/16 06:30 11:45 17:54 WBC RBC Hgb Hct MCV MCH MCHC RDW Plt Count Lymph % (Auto) [place] % (Auto) Lymph # [place] # Baso # Seg Neutrophils % Seg Neuts % (Manual) Lymphocytes % (Manual) Monocytes % (Manual) Eosinophils % (Manual) Basophils % (Manual) Nucleated RBC % Seg Neutrophils # Seg Neutrophils # Man Lymphocytes # (Manual) Monocytes # (Manual) Eosinophils # (Manual) Basophils # (Manual) PT INR Fibrinogen dRVVT Confirm Interp Factor V Activity POC ABG pH POC ABG pCO2 POC ABG pO2 ABG pO2 ABG HCO3 ABG Base Excess ABG Hemoglobin Oxyhemoglobin Sodium 128 L Potassium Chloride 87.4 L Carbon Dioxide 20 L BUN 34 H Creatinine 2.9 H Glucose 127 H POC Glucose 158 H 160 H Lactic Acid Calcium 7.4 L Ionized Calcium Phosphorus Magnesium Direct Bilirubin AST ALT Alkaline Phosphatase Lactate Dehydrogenase Troponin T C-Reactive Protein Total Protein Albumin Prealbumin Triglycerides Cholesterol LDL Cholesterol Direct HDL Cholesterol 25-OH Vitamin D Total PTH Intact Urine pH Urine WBC (Auto) Urine Creatinine Urine Total Protein Fluid Total Protein Vancomycin Trough Rheumatoid Factor Complement C4 Miscellaneous Test Crossmatch 10/04/16 10/05/16 10/05/16 23:25 04:30 05:00 WBC RBC 2.64 L Hgb 7.5 L Hct 22.6 L MCV MCH MCHC RDW 19.3 H Plt Count 80 L Lymph % (Auto) [place] % (Auto) Lymph # [place] # Baso # Seg Neutrophils % Seg Neuts % (Manual) Lymphocytes % (Manual) 12.0 L Monocytes % (Manual) Eosinophils % (Manual) Basophils % (Manual) Nucleated RBC % Seg Neutrophils # Seg Neutrophils # Man Lymphocytes # (Manual) Monocytes # (Manual) Eosinophils # (Manual) Basophils # (Manual) PT INR Fibrinogen dRVVT Confirm Interp Factor V Activity POC ABG pH 7.475 H POC ABG pCO2 33.3 L POC ABG pO2 140 H ABG pO2 ABG HCO3 ABG Base Excess ABG Hemoglobin Oxyhemoglobin Sodium Potassium Chloride Carbon Dioxide BUN Creatinine Glucose POC Glucose 141 H Lactic Acid Calcium Ionized Calcium Phosphorus Magnesium Direct Bilirubin AST ALT Alkaline Phosphatase Lactate Dehydrogenase Troponin T C-Reactive Protein Total Protein Albumin Prealbumin Triglycerides Cholesterol LDL Cholesterol Direct HDL Cholesterol 25-OH Vitamin D Total PTH Intact Urine pH Urine WBC (Auto) Urine Creatinine Urine Total Protein Fluid Total Protein Vancomycin Trough Rheumatoid Factor Complement C4 Miscellaneous Test Crossmatch 10/05/16 10/05/16 10/05/16 05:00 05:09 12:58 WBC RBC Hgb Hct MCV MCH MCHC RDW Plt Count Lymph % (Auto) [place] % (Auto) Lymph # [place] # Baso # Seg Neutrophils % Seg Neuts % (Manual) Lymphocytes % (Manual) Monocytes % (Manual) Eosinophils % (Manual) Basophils % (Manual) Nucleated RBC % Seg Neutrophils # Seg Neutrophils # Man Lymphocytes # (Manual) Monocytes # (Manual) Eosinophils # (Manual) Basophils # (Manual) PT INR Fibrinogen dRVVT Confirm Interp Factor V Activity POC ABG pH POC ABG pCO2 POC ABG pO2 ABG pO2 ABG HCO3 ABG Base Excess ABG Hemoglobin Oxyhemoglobin Sodium 131 L Potassium Chloride 94.0 L Carbon Dioxide 20 L BUN 22 H Creatinine 2.0 H Glucose 123 H POC Glucose 166 H 179 H Lactic Acid Calcium 7.7 L Ionized Calcium Phosphorus 2.20 L D Magnesium Direct Bilirubin AST ALT Alkaline Phosphatase Lactate Dehydrogenase Troponin T C-Reactive Protein Total Protein Albumin Prealbumin Triglycerides Cholesterol LDL Cholesterol Direct HDL Cholesterol 25-OH Vitamin D Total PTH Intact Urine pH Urine WBC (Auto) Urine Creatinine Urine Total Protein Fluid Total Protein Vancomycin Trough Rheumatoid Factor Complement C4 Miscellaneous Test Crossmatch 10/05/16 10/05/16 10/05/16 15:50 18:53 23:12 WBC RBC Hgb Hct MCV MCH MCHC RDW Plt Count Lymph % (Auto) [place] % (Auto) Lymph # [place] # Baso # Seg Neutrophils % Seg Neuts % (Manual) Lymphocytes % (Manual) Monocytes % (Manual) Eosinophils % (Manual) Basophils % (Manual) Nucleated RBC % Seg Neutrophils # Seg Neutrophils # Man Lymphocytes # (Manual) Monocytes # (Manual) Eosinophils # (Manual) Basophils # (Manual) PT INR Fibrinogen dRVVT Confirm Interp Factor V Activity POC ABG pH POC ABG pCO2 POC ABG pO2 ABG pO2 ABG HCO3 ABG Base Excess ABG Hemoglobin Oxyhemoglobin Sodium Potassium Chloride Carbon Dioxide BUN Creatinine Glucose POC Glucose 150 H 164 H Lactic Acid Calcium Ionized Calcium Phosphorus Magnesium Direct Bilirubin AST ALT Alkaline Phosphatase Lactate Dehydrogenase Troponin T C-Reactive Protein Total Protein Albumin Prealbumin Triglycerides Cholesterol LDL Cholesterol Direct HDL Cholesterol 25-OH Vitamin D Total PTH Intact Urine pH Urine WBC (Auto) Urine Creatinine Urine Total Protein Fluid Total Protein Vancomycin Trough Rheumatoid Factor Complement C4 Miscellaneous Test Crossmatch See Detail 10/06/16 10/06/16 10/06/16 03:50 03:50 04:53 WBC RBC 3.00 L Hgb 8.6 L Hct 25.8 L MCV MCH MCHC RDW 17.9 H Plt Count 65 L Lymph % (Auto) [place] % (Auto) Lymph # [place] # Baso # Seg Neutrophils % Seg Neuts % (Manual) 30.0 L Lymphocytes % (Manual) 5.0 L Monocytes % (Manual) Eosinophils % (Manual) Basophils % (Manual) Nucleated RBC % Seg Neutrophils # Seg Neutrophils # Man Lymphocytes # (Manual) 0.4 L Monocytes # (Manual) Eosinophils # (Manual) Basophils # (Manual) PT INR Fibrinogen dRVVT Confirm Interp Factor V Activity POC ABG pH 7.310 L POC ABG pCO2 49.0 H POC ABG pO2 ABG pO2 ABG HCO3 ABG Base Excess ABG Hemoglobin Oxyhemoglobin Sodium 133 L Potassium Chloride 95.9 L Carbon Dioxide BUN 26 H Creatinine 2.0 H Glucose 116 H POC Glucose Lactic Acid Calcium 7.8 L Ionized Calcium Phosphorus Magnesium Direct Bilirubin AST ALT Alkaline Phosphatase Lactate Dehydrogenase Troponin T C-Reactive Protein Total Protein Albumin Prealbumin Triglycerides Cholesterol LDL Cholesterol Direct HDL Cholesterol 25-OH Vitamin D Total PTH Intact Urine pH Urine WBC (Auto) Urine Creatinine Urine Total Protein Fluid Total Protein Vancomycin Trough Rheumatoid Factor Complement C4 Miscellaneous Test Crossmatch 10/06/16 10/06/16 10/06/16 05:23 11:52 18:34 WBC RBC Hgb Hct MCV MCH MCHC RDW Plt Count Lymph % (Auto) [place] % (Auto) Lymph # [place] # Baso # Seg Neutrophils % Seg Neuts % (Manual) Lymphocytes % (Manual) Monocytes % (Manual) Eosinophils % (Manual) Basophils % (Manual) Nucleated RBC % Seg Neutrophils # Seg Neutrophils # Man Lymphocytes # (Manual) Monocytes # (Manual) Eosinophils # (Manual) Basophils # (Manual) PT INR Fibrinogen dRVVT Confirm Interp Factor V Activity POC ABG pH POC ABG pCO2 POC ABG pO2 ABG pO2 ABG HCO3 ABG Base Excess ABG Hemoglobin Oxyhemoglobin Sodium Potassium Chloride Carbon Dioxide BUN Creatinine Glucose POC Glucose 126 H 116 H 129 H Lactic Acid Calcium Ionized Calcium Phosphorus Magnesium Direct Bilirubin AST ALT Alkaline Phosphatase Lactate Dehydrogenase Troponin T C-Reactive Protein Total Protein Albumin Prealbumin Triglycerides Cholesterol LDL Cholesterol Direct HDL Cholesterol 25-OH Vitamin D Total PTH Intact Urine pH Urine WBC (Auto) Urine Creatinine Urine Total Protein Fluid Total Protein Vancomycin Trough Rheumatoid Factor Complement C4 Miscellaneous Test Crossmatch 10/07/16 10/07/16 10/07/16 03:45 05:00 10:00 WBC 17.0 H RBC 2.68 L Hgb 7.3 L Hct 25.3 L MCV MCH 27 L MCHC 29 L RDW 19.6 H Plt Count 74 L Lymph % (Auto) [place] % (Auto) Lymph # [place] # Baso # Seg Neutrophils % Seg Neuts % (Manual) Lymphocytes % (Manual) 12.0 L Monocytes % (Manual) Eosinophils % (Manual) Basophils % (Manual) Nucleated RBC % 4.0 H Seg Neutrophils # Seg Neutrophils # Man 10.7 H Lymphocytes # (Manual) Monocytes # (Manual) Eosinophils # (Manual) Basophils # (Manual) PT INR Fibrinogen dRVVT Confirm Interp Factor V Activity POC ABG pH POC ABG pCO2 POC ABG pO2 ABG pO2 ABG HCO3 ABG Base Excess ABG Hemoglobin Oxyhemoglobin Sodium 130 L Potassium 3.2 L Chloride 93.9 L Carbon Dioxide 20 L BUN 44 H Creatinine 2.7 H Glucose 129 H POC Glucose Lactic Acid Calcium 7.4 L Ionized Calcium Phosphorus Magnesium Direct Bilirubin AST ALT 6 L Alkaline Phosphatase 195 H Lactate Dehydrogenase Troponin T C-Reactive Protein Total Protein 4.9 L Albumin 1.0 L Prealbumin Triglycerides Cholesterol LDL Cholesterol Direct HDL Cholesterol 25-OH Vitamin D Total PTH Intact Urine pH Urine WBC (Auto) Urine Creatinine Urine Total Protein Fluid Total Protein Vancomycin Trough Rheumatoid Factor Complement C4 Miscellaneous Test Flexitest 1 H Crossmatch 10/07/16 10/07/16 10/07/16 10:00 11:24 18:10 WBC RBC Hgb Hct MCV MCH MCHC RDW Plt Count Lymph % (Auto) [place] % (Auto) Lymph # [place] # Baso # Seg Neutrophils % Seg Neuts % (Manual) Lymphocytes % (Manual) Monocytes % (Manual) Eosinophils % (Manual) Basophils % (Manual) Nucleated RBC % Seg Neutrophils # Seg Neutrophils # Man Lymphocytes # (Manual) Monocytes # (Manual) Eosinophils # (Manual) Basophils # (Manual) PT INR Fibrinogen dRVVT Confirm Interp Factor V Activity POC ABG pH POC ABG pCO2 POC ABG pO2 ABG pO2 ABG HCO3 ABG Base Excess ABG Hemoglobin Oxyhemoglobin Sodium Potassium Chloride Carbon Dioxide BUN Creatinine Glucose POC Glucose 116 H 130 H Lactic Acid Calcium Ionized Calcium Phosphorus Magnesium Direct Bilirubin AST ALT Alkaline Phosphatase Lactate Dehydrogenase Troponin T C-Reactive Protein 19.40 H Total Protein Albumin Prealbumin Triglycerides Cholesterol LDL Cholesterol Direct HDL Cholesterol 25-OH Vitamin D Total PTH Intact Urine pH Urine WBC (Auto) Urine Creatinine Urine Total Protein Fluid Total Protein Vancomycin Trough Rheumatoid Factor Complement C4 Miscellaneous Test Crossmatch 10/07/16 10/08/16 10/08/16 18:30 00:00 04:00 WBC RBC Hgb Hct MCV MCH MCHC RDW Plt Count Lymph % (Auto) [place] % (Auto) Lymph # [place] # Baso # Seg Neutrophils % Seg Neuts % (Manual) Lymphocytes % (Manual) Monocytes % (Manual) Eosinophils % (Manual) Basophils % (Manual) Nucleated RBC % Seg Neutrophils # Seg Neutrophils # Man Lymphocytes # (Manual) Monocytes # (Manual) Eosinophils # (Manual) Basophils # (Manual) PT INR Fibrinogen dRVVT Confirm Interp Factor V Activity POC ABG pH POC ABG pCO2 POC ABG pO2 ABG pO2 ABG HCO3 ABG Base Excess ABG Hemoglobin Oxyhemoglobin Sodium 132 L Potassium 3.3 L Chloride 93.6 L Carbon Dioxide 17 L BUN 59 H Creatinine 2.7 H Glucose 121 H POC Glucose 122 H Lactic Acid Calcium 7.6 L Ionized Calcium Phosphorus Magnesium Direct Bilirubin AST ALT Alkaline Phosphatase Lactate Dehydrogenase Troponin T C-Reactive Protein Total Protein Albumin Prealbumin Triglycerides Cholesterol LDL Cholesterol Direct HDL Cholesterol 25-OH Vitamin D Total PTH Intact Urine pH Urine WBC (Auto) > 182.0 H Urine Creatinine Urine Total Protein Fluid Total Protein Vancomycin Trough Rheumatoid Factor Complement C4 Miscellaneous Test Crossmatch 10/08/16 10/08/16 10/08/16 04:30 05:30 11:51 WBC RBC 5.15 H Hgb 14.4 H D Hct 44.5 H D MCV MCH MCHC RDW 19.5 H Plt Count 56 L Lymph % (Auto) [place] % (Auto) Lymph # [place] # Baso # Seg Neutrophils % Seg Neuts % (Manual) 24.0 L Lymphocytes % (Manual) 8.0 L Monocytes % (Manual) Eosinophils % (Manual) Basophils % (Manual) Nucleated RBC % 9.0 H Seg Neutrophils # Seg Neutrophils # Man Lymphocytes # (Manual) 0.7 L Monocytes # (Manual) Eosinophils # (Manual) Basophils # (Manual) PT INR Fibrinogen dRVVT Confirm Interp Factor V Activity POC ABG pH POC ABG pCO2 POC ABG pO2 ABG pO2 ABG HCO3 ABG Base Excess ABG Hemoglobin Oxyhemoglobin Sodium Potassium Chloride Carbon Dioxide BUN Creatinine Glucose POC Glucose 125 H 150 H Lactic Acid Calcium Ionized Calcium Phosphorus Magnesium Direct Bilirubin AST ALT Alkaline Phosphatase Lactate Dehydrogenase Troponin T C-Reactive Protein Total Protein Albumin Prealbumin Triglycerides Cholesterol LDL Cholesterol Direct HDL Cholesterol 25-OH Vitamin D Total PTH Intact Urine pH Urine WBC (Auto) Urine Creatinine Urine Total Protein Fluid Total Protein Vancomycin Trough Rheumatoid Factor Complement C4 Miscellaneous Test Crossmatch 10/08/16 10/08/16 10/08/16 12:49 17:07 19:30 WBC RBC Hgb 7.1 L D Hct 22.4 L D MCV MCH MCHC RDW Plt Count Lymph % (Auto) [place] % (Auto) Lymph # [place] # Baso # Seg Neutrophils % Seg Neuts % (Manual) Lymphocytes % (Manual) Monocytes % (Manual) Eosinophils % (Manual) Basophils % (Manual) Nucleated RBC % Seg Neutrophils # Seg Neutrophils # Man Lymphocytes # (Manual) Monocytes # (Manual) Eosinophils # (Manual) Basophils # (Manual) PT INR Fibrinogen dRVVT Confirm Interp Factor V Activity POC ABG pH POC ABG pCO2 28.2 L POC ABG pO2 111 H ABG pO2 ABG HCO3 ABG Base Excess ABG Hemoglobin Oxyhemoglobin Sodium Potassium Chloride Carbon Dioxide BUN Creatinine Glucose POC Glucose 145 H Lactic Acid Calcium Ionized Calcium Phosphorus Magnesium Direct Bilirubin AST ALT Alkaline Phosphatase Lactate Dehydrogenase Troponin T C-Reactive Protein Total Protein Albumin Prealbumin Triglycerides Cholesterol LDL Cholesterol Direct HDL Cholesterol 25-OH Vitamin D Total PTH Intact Urine pH Urine WBC (Auto) Urine Creatinine Urine Total Protein Fluid Total Protein Vancomycin Trough Rheumatoid Factor Complement C4 Miscellaneous Test Crossmatch 10/08/16 10/09/16 10/09/16 19:30 03:45 03:45 WBC 12.6 H RBC 2.36 L Hgb 6.7 L Hct 21.1 L MCV MCH MCHC RDW 19.5 H Plt Count 75 L Lymph % (Auto) [place] % (Auto) Lymph # [place] # Baso # Seg Neutrophils % Seg Neuts % (Manual) Lymphocytes % (Manual) Monocytes % (Manual) 10.0 H Eosinophils % (Manual) Basophils % (Manual) Nucleated RBC % 3.0 H Seg Neutrophils # Seg Neutrophils # Man Lymphocytes # (Manual) Monocytes # (Manual) 1.3 H Eosinophils # (Manual) Basophils # (Manual) PT 18.0 H INR 1.41 H Fibrinogen dRVVT Confirm Interp Factor V Activity POC ABG pH POC ABG pCO2 POC ABG pO2 ABG pO2 ABG HCO3 ABG Base Excess ABG Hemoglobin Oxyhemoglobin Sodium 135 L Potassium Chloride Carbon Dioxide 17 L BUN 81 H Creatinine 3.2 H Glucose 109 H POC Glucose Lactic Acid Calcium 7.4 L Ionized Calcium Phosphorus 4.60 H D Magnesium Direct Bilirubin AST ALT Alkaline Phosphatase Lactate Dehydrogenase Troponin T C-Reactive Protein Total Protein Albumin Prealbumin Triglycerides Cholesterol LDL Cholesterol Direct HDL Cholesterol 25-OH Vitamin D Total PTH Intact Urine pH Urine WBC (Auto) Urine Creatinine Urine Total Protein Fluid Total Protein Vancomycin Trough Rheumatoid Factor Complement C4 Miscellaneous Test Crossmatch 10/09/16 10/09/16 10/09/16 03:45 05:14 07:20 WBC RBC Hgb Hct MCV MCH MCHC RDW Plt Count Lymph % (Auto) [place] % (Auto) Lymph # [place] # Baso # Seg Neutrophils % Seg Neuts % (Manual) Lymphocytes % (Manual) Monocytes % (Manual) Eosinophils % (Manual) Basophils % (Manual) Nucleated RBC % Seg Neutrophils # Seg Neutrophils # Man Lymphocytes # (Manual) Monocytes # (Manual) Eosinophils # (Manual) Basophils # (Manual) PT 19.0 H INR 1.51 H Fibrinogen dRVVT Confirm Interp Factor V Activity POC ABG pH POC ABG pCO2 POC ABG pO2 ABG pO2 ABG HCO3 ABG Base Excess ABG Hemoglobin Oxyhemoglobin Sodium Potassium Chloride Carbon Dioxide BUN Creatinine Glucose POC Glucose 151 H Lactic Acid Calcium Ionized Calcium Phosphorus Magnesium Direct Bilirubin AST ALT Alkaline Phosphatase Lactate Dehydrogenase Troponin T C-Reactive Protein Total Protein Albumin Prealbumin Triglycerides Cholesterol LDL Cholesterol Direct HDL Cholesterol 25-OH Vitamin D Total PTH Intact Urine pH Urine WBC (Auto) Urine Creatinine Urine Total Protein Fluid Total Protein Vancomycin Trough Rheumatoid Factor Complement C4 Miscellaneous Test Crossmatch See Detail 10/09/16 10/09/16 10/09/16 11:46 16:20 16:43 WBC RBC Hgb 7.2 L Hct 22.2 L MCV MCH MCHC RDW Plt Count Lymph % (Auto) [place] % (Auto) Lymph # [place] # Baso # Seg Neutrophils % Seg Neuts % (Manual) Lymphocytes % (Manual) Monocytes % (Manual) Eosinophils % (Manual) Basophils % (Manual) Nucleated RBC % Seg Neutrophils # Seg Neutrophils # Man Lymphocytes # (Manual) Monocytes # (Manual) Eosinophils # (Manual) Basophils # (Manual) PT INR Fibrinogen dRVVT Confirm Interp Factor V Activity POC ABG pH POC ABG pCO2 POC ABG pO2 ABG pO2 ABG HCO3 ABG Base Excess ABG Hemoglobin Oxyhemoglobin Sodium Potassium Chloride Carbon Dioxide BUN Creatinine Glucose POC Glucose 133 H 141 H Lactic Acid Calcium Ionized Calcium Phosphorus Magnesium Direct Bilirubin AST ALT Alkaline Phosphatase Lactate Dehydrogenase Troponin T C-Reactive Protein Total Protein Albumin Prealbumin Triglycerides Cholesterol LDL Cholesterol Direct HDL Cholesterol 25-OH Vitamin D Total PTH Intact Urine pH Urine WBC (Auto) Urine Creatinine Urine Total Protein Fluid Total Protein Vancomycin Trough Rheumatoid Factor Complement C4 Miscellaneous Test Crossmatch 10/10/16 10/10/16 10/10/16 05:00 05:00 11:19 WBC 18.5 H RBC 2.19 L Hgb 6.4 L Hct 19.6 L* MCV MCH MCHC RDW 19.3 H Plt Count 93 L Lymph % (Auto) [place] % (Auto) Lymph # [place] # Baso # Seg Neutrophils % Seg Neuts % (Manual) Lymphocytes % (Manual) 10.0 L Monocytes % (Manual) Eosinophils % (Manual) Basophils % (Manual) Nucleated RBC % 4.0 H Seg Neutrophils # Seg Neutrophils # Man 11.3 H Lymphocytes # (Manual) Monocytes # (Manual) Eosinophils # (Manual) Basophils # (Manual) PT INR Fibrinogen dRVVT Confirm Interp Factor V Activity POC ABG pH POC ABG pCO2 POC ABG pO2 ABG pO2 ABG HCO3 ABG Base Excess ABG Hemoglobin Oxyhemoglobin Sodium Potassium 5.7 H D Chloride Carbon Dioxide 16 L BUN 94 H Creatinine 3.1 H Glucose 131 H POC Glucose 153 H Lactic Acid Calcium 8.2 L Ionized Calcium Phosphorus 5.10 H Magnesium 2.40 H Direct Bilirubin 0.3 H AST ALT < 5 L Alkaline Phosphatase 319 H Lactate Dehydrogenase Troponin T C-Reactive Protein Total Protein 5.1 L Albumin 1.0 L Prealbumin Triglycerides Cholesterol LDL Cholesterol Direct HDL Cholesterol 25-OH Vitamin D Total PTH Intact Urine pH Urine WBC (Auto) Urine Creatinine Urine Total Protein Fluid Total Protein Vancomycin Trough Rheumatoid Factor Complement C4 Miscellaneous Test Crossmatch 10/10/16 10/10/16 10/11/16 17:50 23:30 04:15 WBC RBC Hgb Hct MCV MCH MCHC RDW Plt Count Lymph % (Auto) [place] % (Auto) Lymph # [place] # Baso # Seg Neutrophils % Seg Neuts % (Manual) Lymphocytes % (Manual) Monocytes % (Manual) Eosinophils % (Manual) Basophils % (Manual) Nucleated RBC % Seg Neutrophils # Seg Neutrophils # Man Lymphocytes # (Manual) Monocytes # (Manual) Eosinophils # (Manual) Basophils # (Manual) PT INR Fibrinogen dRVVT Confirm Interp Factor V Activity POC ABG pH POC ABG pCO2 POC ABG pO2 ABG pO2 ABG HCO3 ABG Base Excess ABG Hemoglobin Oxyhemoglobin Sodium Potassium Chloride 96.4 L Carbon Dioxide 21 L BUN 57 H Creatinine 2.1 H Glucose 151 H POC Glucose 146 H 141 H Lactic Acid Calcium 8.3 L Ionized Calcium Phosphorus Magnesium Direct Bilirubin AST ALT Alkaline Phosphatase Lactate Dehydrogenase Troponin T C-Reactive Protein Total Protein Albumin Prealbumin Triglycerides Cholesterol LDL Cholesterol Direct HDL Cholesterol 25-OH Vitamin D Total PTH Intact Urine pH Urine WBC (Auto) Urine Creatinine Urine Total Protein Fluid Total Protein Vancomycin Trough Rheumatoid Factor Complement C4 Miscellaneous Test Crossmatch 10/11/16 10/11/16 10/11/16 04:15 04:15 05:30 WBC 28.3 H RBC 3.12 L Hgb 9.3 L Hct 28.7 L D MCV MCH MCHC RDW 17.7 H Plt Count 128 L Lymph % (Auto) [place] % (Auto) Lymph # [place] # Baso # Seg Neutrophils % Seg Neuts % (Manual) Lymphocytes % (Manual) Monocytes % (Manual) Eosinophils % (Manual) Basophils % (Manual) Nucleated RBC % Seg Neutrophils # Seg Neutrophils # Man Lymphocytes # (Manual) Monocytes # (Manual) Eosinophils # (Manual) Basophils # (Manual) PT INR Fibrinogen dRVVT Confirm Interp Factor V Activity POC ABG pH POC ABG pCO2 POC ABG pO2 ABG pO2 ABG HCO3 ABG Base Excess ABG Hemoglobin Oxyhemoglobin Sodium Potassium Chloride Carbon Dioxide BUN Creatinine Glucose POC Glucose 167 H Lactic Acid Calcium Ionized Calcium Phosphorus Magnesium Direct Bilirubin AST ALT Alkaline Phosphatase Lactate Dehydrogenase Troponin T C-Reactive Protein 15.80 H Total Protein Albumin Prealbumin Triglycerides Cholesterol LDL Cholesterol Direct HDL Cholesterol 25-OH Vitamin D Total PTH Intact Urine pH Urine WBC (Auto) Urine Creatinine Urine Total Protein Fluid Total Protein Vancomycin Trough Rheumatoid Factor Complement C4 Miscellaneous Test Crossmatch 10/11/16 10/11/16 10/11/16 11:40 15:49 23:57 WBC RBC Hgb Hct MCV MCH MCHC RDW Plt Count Lymph % (Auto) [place] % (Auto) Lymph # [place] # Baso # Seg Neutrophils % Seg Neuts % (Manual) Lymphocytes % (Manual) Monocytes % (Manual) Eosinophils % (Manual) Basophils % (Manual) Nucleated RBC % Seg Neutrophils # Seg Neutrophils # Man Lymphocytes # (Manual) Monocytes # (Manual) Eosinophils # (Manual) Basophils # (Manual) PT INR Fibrinogen dRVVT Confirm Interp Factor V Activity POC ABG pH POC ABG pCO2 POC ABG pO2 ABG pO2 ABG HCO3 ABG Base Excess ABG Hemoglobin Oxyhemoglobin Sodium Potassium Chloride Carbon Dioxide BUN Creatinine Glucose POC Glucose 139 H 168 H 161 H Lactic Acid Calcium Ionized Calcium Phosphorus Magnesium Direct Bilirubin AST ALT Alkaline Phosphatase Lactate Dehydrogenase Troponin T C-Reactive Protein Total Protein Albumin Prealbumin Triglycerides Cholesterol LDL Cholesterol Direct HDL Cholesterol 25-OH Vitamin D Total PTH Intact Urine pH Urine WBC (Auto) Urine Creatinine Urine Total Protein Fluid Total Protein Vancomycin Trough Rheumatoid Factor Complement C4 Miscellaneous Test Crossmatch 10/12/16 10/12/16 10/12/16 04:40 04:40 05:44 WBC 22.5 H RBC 2.88 L Hgb 8.8 L Hct 26.8 L MCV MCH MCHC RDW 17.8 H Plt Count Lymph % (Auto) [place] % (Auto) Lymph # [place] # Baso # Seg Neutrophils % Seg Neuts % (Manual) Lymphocytes % (Manual) Monocytes % (Manual) Eosinophils % (Manual) Basophils % (Manual) Nucleated RBC % Seg Neutrophils # Seg Neutrophils # Man Lymphocytes # (Manual) Monocytes # (Manual) Eosinophils # (Manual) Basophils # (Manual) PT INR Fibrinogen dRVVT Confirm Interp Factor V Activity POC ABG pH POC ABG pCO2 POC ABG pO2 ABG pO2 ABG HCO3 ABG Base Excess ABG Hemoglobin Oxyhemoglobin Sodium 134 L Potassium Chloride 93.0 L Carbon Dioxide BUN 74 H Creatinine 2.5 H Glucose 137 H POC Glucose 158 H Lactic Acid Calcium 8.2 L Ionized Calcium Phosphorus Magnesium Direct Bilirubin AST ALT Alkaline Phosphatase Lactate Dehydrogenase Troponin T C-Reactive Protein Total Protein Albumin Prealbumin Triglycerides Cholesterol LDL Cholesterol Direct HDL Cholesterol 25-OH Vitamin D Total PTH Intact Urine pH Urine WBC (Auto) Urine Creatinine Urine Total Protein Fluid Total Protein Vancomycin Trough Rheumatoid Factor Complement C4 Miscellaneous Test Crossmatch 10/12/16 10/12/16 10/12/16 12:27 18:18 23:46 WBC RBC Hgb Hct MCV MCH MCHC RDW Plt Count Lymph % (Auto) [place] % (Auto) Lymph # [place] # Baso # Seg Neutrophils % Seg Neuts % (Manual) Lymphocytes % (Manual) Monocytes % (Manual) Eosinophils % (Manual) Basophils % (Manual) Nucleated RBC % Seg Neutrophils # Seg Neutrophils # Man Lymphocytes # (Manual) Monocytes # (Manual) Eosinophils # (Manual) Basophils # (Manual) PT INR Fibrinogen dRVVT Confirm Interp Factor V Activity POC ABG pH POC ABG pCO2 POC ABG pO2 ABG pO2 ABG HCO3 ABG Base Excess ABG Hemoglobin Oxyhemoglobin Sodium Potassium Chloride Carbon Dioxide BUN Creatinine Glucose POC Glucose 153 H 140 H 150 H Lactic Acid Calcium Ionized Calcium Phosphorus Magnesium Direct Bilirubin AST ALT Alkaline Phosphatase Lactate Dehydrogenase Troponin T C-Reactive Protein Total Protein Albumin Prealbumin Triglycerides Cholesterol LDL Cholesterol Direct HDL Cholesterol 25-OH Vitamin D Total PTH Intact Urine pH Urine WBC (Auto) Urine Creatinine Urine Total Protein Fluid Total Protein Vancomycin Trough Rheumatoid Factor Complement C4 Miscellaneous Test Crossmatch 10/13/16 10/13/16 10/13/16 06:22 09:20 12:29 WBC RBC Hgb Hct MCV MCH MCHC RDW Plt Count Lymph % (Auto) [place] % (Auto) Lymph # [place] # Baso # Seg Neutrophils % Seg Neuts % (Manual) Lymphocytes % (Manual) Monocytes % (Manual) Eosinophils % (Manual) Basophils % (Manual) Nucleated RBC % Seg Neutrophils # Seg Neutrophils # Man Lymphocytes # (Manual) Monocytes # (Manual) Eosinophils # (Manual) Basophils # (Manual) PT INR Fibrinogen dRVVT Confirm Interp Factor V Activity POC ABG pH POC ABG pCO2 POC ABG pO2 ABG pO2 ABG HCO3 ABG Base Excess ABG Hemoglobin Oxyhemoglobin Sodium Potassium Chloride Carbon Dioxide BUN Creatinine Glucose POC Glucose 165 H 193 H Lactic Acid Calcium Ionized Calcium Phosphorus Magnesium Direct Bilirubin AST ALT Alkaline Phosphatase Lactate Dehydrogenase Troponin T C-Reactive Protein Total Protein Albumin Prealbumin Triglycerides Cholesterol LDL Cholesterol Direct HDL Cholesterol 25-OH Vitamin D Total PTH Intact Urine pH Urine WBC (Auto) Urine Creatinine Urine Total Protein Fluid Total Protein Vancomycin Trough Rheumatoid Factor Complement C4 Miscellaneous Test Flexitest 1 H Crossmatch 10/13/16 10/13/16 10/13/16 18:09 Unknown Unknown WBC 23.4 H RBC 2.83 L Hgb 8.7 L Hct 26.1 L MCV MCH MCHC RDW 18.1 H Plt Count Lymph % (Auto) [place] % (Auto) Lymph # [place] # Baso # Seg Neutrophils % Seg Neuts % (Manual) Lymphocytes % (Manual) Monocytes % (Manual) Eosinophils % (Manual) Basophils % (Manual) Nucleated RBC % Seg Neutrophils # Seg Neutrophils # Man Lymphocytes # (Manual) Monocytes # (Manual) Eosinophils # (Manual) Basophils # (Manual) PT INR Fibrinogen dRVVT Confirm Interp Factor V Activity POC ABG pH POC ABG pCO2 POC ABG pO2 ABG pO2 ABG HCO3 ABG Base Excess ABG Hemoglobin Oxyhemoglobin Sodium Potassium Chloride 95.8 L Carbon Dioxide BUN 82 H Creatinine 2.6 H Glucose 152 H POC Glucose 166 H Lactic Acid Calcium Ionized Calcium Phosphorus Magnesium Direct Bilirubin AST ALT Alkaline Phosphatase Lactate Dehydrogenase Troponin T C-Reactive Protein Total Protein Albumin Prealbumin Triglycerides Cholesterol LDL Cholesterol Direct HDL Cholesterol 25-OH Vitamin D Total PTH Intact Urine pH Urine WBC (Auto) Urine Creatinine Urine Total Protein Fluid Total Protein Vancomycin Trough Rheumatoid Factor Complement C4 Miscellaneous Test Crossmatch 10/14/16 10/14/16 10/14/16 05:38 06:35 08:10 WBC 20.7 H RBC 2.81 L Hgb 8.4 L Hct 27.2 L MCV MCH MCHC RDW 19.4 H Plt Count Lymph % (Auto) [place] % (Auto) Lymph # [place] # Baso # Seg Neutrophils % Seg Neuts % (Manual) Lymphocytes % (Manual) Monocytes % (Manual) Eosinophils % (Manual) Basophils % (Manual) Nucleated RBC % Seg Neutrophils # Seg Neutrophils # Man Lymphocytes # (Manual) Monocytes # (Manual) Eosinophils # (Manual) Basophils # (Manual) PT INR Fibrinogen dRVVT Confirm Interp Factor V Activity POC ABG pH POC ABG pCO2 POC ABG pO2 ABG pO2 ABG HCO3 ABG Base Excess ABG Hemoglobin Oxyhemoglobin Sodium Potassium Chloride Carbon Dioxide BUN 58 H Creatinine 1.9 H Glucose 169 H POC Glucose 195 H Lactic Acid Calcium Ionized Calcium Phosphorus Magnesium Direct Bilirubin AST ALT Alkaline Phosphatase Lactate Dehydrogenase Troponin T C-Reactive Protein Total Protein Albumin Prealbumin Triglycerides Cholesterol LDL Cholesterol Direct HDL Cholesterol 25-OH Vitamin D Total PTH Intact Urine pH Urine WBC (Auto) Urine Creatinine Urine Total Protein Fluid Total Protein Vancomycin Trough Rheumatoid Factor Complement C4 Miscellaneous Test Crossmatch 10/14/16 10/14/16 10/14/16 11:44 17:13 23:28 WBC RBC Hgb Hct MCV MCH MCHC RDW Plt Count Lymph % (Auto) [place] % (Auto) Lymph # [place] # Baso # Seg Neutrophils % Seg Neuts % (Manual) Lymphocytes % (Manual) Monocytes % (Manual) Eosinophils % (Manual) Basophils % (Manual) Nucleated RBC % Seg Neutrophils # Seg Neutrophils # Man Lymphocytes # (Manual) Monocytes # (Manual) Eosinophils # (Manual) Basophils # (Manual) PT INR Fibrinogen dRVVT Confirm Interp Factor V Activity POC ABG pH POC ABG pCO2 POC ABG pO2 ABG pO2 ABG HCO3 ABG Base Excess ABG Hemoglobin Oxyhemoglobin Sodium Potassium Chloride Carbon Dioxide BUN Creatinine Glucose POC Glucose 174 H 121 H 151 H Lactic Acid Calcium Ionized Calcium Phosphorus Magnesium Direct Bilirubin AST ALT Alkaline Phosphatase Lactate Dehydrogenase Troponin T C-Reactive Protein Total Protein Albumin Prealbumin Triglycerides Cholesterol LDL Cholesterol Direct HDL Cholesterol 25-OH Vitamin D Total PTH Intact Urine pH Urine WBC (Auto) Urine Creatinine Urine Total Protein Fluid Total Protein Vancomycin Trough Rheumatoid Factor Complement C4 Miscellaneous Test Crossmatch 10/15/16 10/15/16 10/15/16 05:06 12:26 17:48 WBC RBC Hgb Hct MCV MCH MCHC RDW Plt Count Lymph % (Auto) [place] % (Auto) Lymph # [place] # Baso # Seg Neutrophils % Seg Neuts % (Manual) Lymphocytes % (Manual) Monocytes % (Manual) Eosinophils % (Manual) Basophils % (Manual) Nucleated RBC % Seg Neutrophils # Seg Neutrophils # Man Lymphocytes # (Manual) Monocytes # (Manual) Eosinophils # (Manual) Basophils # (Manual) PT INR Fibrinogen dRVVT Confirm Interp Factor V Activity POC ABG pH POC ABG pCO2 POC ABG pO2 ABG pO2 ABG HCO3 ABG Base Excess ABG Hemoglobin Oxyhemoglobin Sodium Potassium Chloride Carbon Dioxide BUN Creatinine Glucose POC Glucose 151 H 149 H 153 H Lactic Acid Calcium Ionized Calcium Phosphorus Magnesium Direct Bilirubin AST ALT Alkaline Phosphatase Lactate Dehydrogenase Troponin T C-Reactive Protein Total Protein Albumin Prealbumin Triglycerides Cholesterol LDL Cholesterol Direct HDL Cholesterol 25-OH Vitamin D Total PTH Intact Urine pH Urine WBC (Auto) Urine Creatinine Urine Total Protein Fluid Total Protein Vancomycin Trough Rheumatoid Factor Complement C4 Miscellaneous Test Crossmatch 10/15/16 10/15/16 10/16/16 Unknown Unknown 00:02 WBC 23.4 H RBC 2.78 L Hgb 8.5 L Hct 25.7 L MCV MCH MCHC RDW 18.7 H Plt Count Lymph % (Auto) [place] % (Auto) Lymph # [place] # Baso # Seg Neutrophils % Seg Neuts % (Manual) Lymphocytes % (Manual) Monocytes % (Manual) Eosinophils % (Manual) Basophils % (Manual) Nucleated RBC % Seg Neutrophils # Seg Neutrophils # Man Lymphocytes # (Manual) Monocytes # (Manual) Eosinophils # (Manual) Basophils # (Manual) PT INR Fibrinogen dRVVT Confirm Interp Factor V Activity POC ABG pH POC ABG pCO2 POC ABG pO2 ABG pO2 ABG HCO3 ABG Base Excess ABG Hemoglobin Oxyhemoglobin Sodium Potassium Chloride Carbon Dioxide BUN 73 H Creatinine 2.3 H Glucose 120 H POC Glucose 137 H Lactic Acid Calcium Ionized Calcium Phosphorus Magnesium Direct Bilirubin AST ALT Alkaline Phosphatase Lactate Dehydrogenase Troponin T C-Reactive Protein Total Protein Albumin Prealbumin Triglycerides Cholesterol LDL Cholesterol Direct HDL Cholesterol 25-OH Vitamin D Total PTH Intact Urine pH Urine WBC (Auto) Urine Creatinine Urine Total Protein Fluid Total Protein Vancomycin Trough Rheumatoid Factor Complement C4 Miscellaneous Test Crossmatch 10/16/16 10/16/16 10/16/16 05:44 06:25 06:25 WBC 22.5 H RBC 2.76 L Hgb 8.3 L Hct 25.2 L MCV MCH MCHC RDW 18.3 H Plt Count Lymph % (Auto) [place] % (Auto) Lymph # [place] # Baso # Seg Neutrophils % Seg Neuts % (Manual) Lymphocytes % (Manual) Monocytes % (Manual) Eosinophils % (Manual) Basophils % (Manual) Nucleated RBC % Seg Neutrophils # Seg Neutrophils # Man Lymphocytes # (Manual) Monocytes # (Manual) Eosinophils # (Manual) Basophils # (Manual) PT INR Fibrinogen dRVVT Confirm Interp Factor V Activity POC ABG pH POC ABG pCO2 POC ABG pO2 ABG pO2 ABG HCO3 ABG Base Excess ABG Hemoglobin Oxyhemoglobin Sodium Potassium Chloride Carbon Dioxide BUN 92 H Creatinine 3.0 H Glucose 138 H POC Glucose 110 H Lactic Acid Calcium Ionized Calcium Phosphorus Magnesium Direct Bilirubin AST ALT Alkaline Phosphatase Lactate Dehydrogenase Troponin T C-Reactive Protein Total Protein Albumin Prealbumin Triglycerides Cholesterol LDL Cholesterol Direct HDL Cholesterol 25-OH Vitamin D Total PTH Intact Urine pH Urine WBC (Auto) Urine Creatinine Urine Total Protein Fluid Total Protein Vancomycin Trough Rheumatoid Factor Complement C4 Miscellaneous Test Crossmatch 10/16/16 10/16/16 10/16/16 11:27 11:48 17:36 WBC RBC Hgb Hct MCV MCH MCHC RDW Plt Count Lymph % (Auto) [place] % (Auto) Lymph # [place] # Baso # Seg Neutrophils % Seg Neuts % (Manual) Lymphocytes % (Manual) Monocytes % (Manual) Eosinophils % (Manual) Basophils % (Manual) Nucleated RBC % Seg Neutrophils # Seg Neutrophils # Man Lymphocytes # (Manual) Monocytes # (Manual) Eosinophils # (Manual) Basophils # (Manual) PT INR Fibrinogen dRVVT Confirm Interp Factor V Activity POC ABG pH 7.582 H POC ABG pCO2 27.4 L POC ABG pO2 110 H ABG pO2 ABG HCO3 ABG Base Excess ABG Hemoglobin Oxyhemoglobin Sodium Potassium Chloride Carbon Dioxide BUN Creatinine Glucose POC Glucose 121 H 133 H Lactic Acid Calcium Ionized Calcium Phosphorus Magnesium Direct Bilirubin AST ALT Alkaline Phosphatase Lactate Dehydrogenase Troponin T C-Reactive Protein Total Protein Albumin Prealbumin Triglycerides Cholesterol LDL Cholesterol Direct HDL Cholesterol 25-OH Vitamin D Total PTH Intact Urine pH Urine WBC (Auto) Urine Creatinine Urine Total Protein Fluid Total Protein Vancomycin Trough Rheumatoid Factor Complement C4 Miscellaneous Test Crossmatch 10/16/16 10/17/16 10/17/16 20:48 04:24 04:24 WBC 21.4 H RBC 2.72 L Hgb 8.0 L Hct 25.2 L MCV MCH MCHC RDW 18.0 H Plt Count Lymph % (Auto) [place] % (Auto) Lymph # [place] # Baso # Seg Neutrophils % Seg Neuts % (Manual) Lymphocytes % (Manual) Monocytes % (Manual) Eosinophils % (Manual) Basophils % (Manual) Nucleated RBC % Seg Neutrophils # Seg Neutrophils # Man Lymphocytes # (Manual) Monocytes # (Manual) Eosinophils # (Manual) Basophils # (Manual) PT INR Fibrinogen dRVVT Confirm Interp Factor V Activity POC ABG pH 7.561 H POC ABG pCO2 24.4 L POC ABG pO2 77 L ABG pO2 ABG HCO3 ABG Base Excess ABG Hemoglobin Oxyhemoglobin Sodium 148 H Potassium Chloride Carbon Dioxide BUN 104 H Creatinine 3.0 H Glucose 149 H POC Glucose Lactic Acid Calcium Ionized Calcium Phosphorus Magnesium Direct Bilirubin AST ALT Alkaline Phosphatase 138 H Lactate Dehydrogenase Troponin T C-Reactive Protein Total Protein 6.2 L Albumin 1.5 L Prealbumin Triglycerides Cholesterol LDL Cholesterol Direct HDL Cholesterol 25-OH Vitamin D Total PTH Intact Urine pH Urine WBC (Auto) Urine Creatinine Urine Total Protein Fluid Total Protein Vancomycin Trough Rheumatoid Factor Complement C4 Miscellaneous Test Crossmatch 10/17/16 10/17/16 10/17/16 06:02 12:17 17:14 WBC RBC Hgb Hct MCV MCH MCHC RDW Plt Count Lymph % (Auto) [place] % (Auto) Lymph # [place] # Baso # Seg Neutrophils % Seg Neuts % (Manual) Lymphocytes % (Manual) Monocytes % (Manual) Eosinophils % (Manual) Basophils % (Manual) Nucleated RBC % Seg Neutrophils # Seg Neutrophils # Man Lymphocytes # (Manual) Monocytes # (Manual) Eosinophils # (Manual) Basophils # (Manual) PT INR Fibrinogen dRVVT Confirm Interp Factor V Activity POC ABG pH POC ABG pCO2 POC ABG pO2 ABG pO2 ABG HCO3 ABG Base Excess ABG Hemoglobin Oxyhemoglobin Sodium Potassium Chloride Carbon Dioxide BUN Creatinine Glucose POC Glucose 170 H 167 H 126 H Lactic Acid Calcium Ionized Calcium Phosphorus Magnesium Direct Bilirubin AST ALT Alkaline Phosphatase Lactate Dehydrogenase Troponin T C-Reactive Protein Total Protein Albumin Prealbumin Triglycerides Cholesterol LDL Cholesterol Direct HDL Cholesterol 25-OH Vitamin D Total PTH Intact Urine pH Urine WBC (Auto) Urine Creatinine Urine Total Protein Fluid Total Protein Vancomycin Trough Rheumatoid Factor Complement C4 Miscellaneous Test Crossmatch 10/17/16 10/18/16 10/18/16 23:17 04:00 04:00 WBC 20.7 H RBC 2.47 L Hgb 7.4 L Hct 22.9 L MCV MCH MCHC RDW 17.5 H Plt Count Lymph % (Auto) [place] % (Auto) Lymph # [place] # Baso # Seg Neutrophils % Seg Neuts % (Manual) Lymphocytes % (Manual) Monocytes % (Manual) Eosinophils % (Manual) Basophils % (Manual) Nucleated RBC % Seg Neutrophils # Seg Neutrophils # Man Lymphocytes # (Manual) Monocytes # (Manual) Eosinophils # (Manual) Basophils # (Manual) PT INR Fibrinogen dRVVT Confirm Interp Factor V Activity POC ABG pH POC ABG pCO2 POC ABG pO2 ABG pO2 ABG HCO3 ABG Base Excess ABG Hemoglobin Oxyhemoglobin Sodium 149 H Potassium Chloride 107.9 H Carbon Dioxide 20 L BUN 117 H Creatinine 3.2 H Glucose 119 H POC Glucose 121 H Lactic Acid Calcium Ionized Calcium Phosphorus Magnesium Direct Bilirubin AST ALT Alkaline Phosphatase Lactate Dehydrogenase Troponin T C-Reactive Protein Total Protein Albumin Prealbumin Triglycerides Cholesterol LDL Cholesterol Direct HDL Cholesterol 25-OH Vitamin D Total PTH Intact Urine pH Urine WBC (Auto) Urine Creatinine Urine Total Protein Fluid Total Protein Vancomycin Trough Rheumatoid Factor Complement C4 Miscellaneous Test Crossmatch 10/18/16 10/18/16 10/18/16 05:23 10:46 17:30 WBC RBC Hgb Hct MCV MCH MCHC RDW Plt Count Lymph % (Auto) [place] % (Auto) Lymph # [place] # Baso # Seg Neutrophils % Seg Neuts % (Manual) Lymphocytes % (Manual) Monocytes % (Manual) Eosinophils % (Manual) Basophils % (Manual) Nucleated RBC % Seg Neutrophils # Seg Neutrophils # Man Lymphocytes # (Manual) Monocytes # (Manual) Eosinophils # (Manual) Basophils # (Manual) PT INR Fibrinogen dRVVT Confirm Interp Factor V Activity POC ABG pH POC ABG pCO2 POC ABG pO2 ABG pO2 ABG HCO3 ABG Base Excess ABG Hemoglobin Oxyhemoglobin Sodium Potassium Chloride Carbon Dioxide BUN Creatinine Glucose POC Glucose 119 H 155 H 124 H Lactic Acid Calcium Ionized Calcium Phosphorus Magnesium Direct Bilirubin AST ALT Alkaline Phosphatase Lactate Dehydrogenase Troponin T C-Reactive Protein Total Protein Albumin Prealbumin Triglycerides Cholesterol LDL Cholesterol Direct HDL Cholesterol 25-OH Vitamin D Total PTH Intact Urine pH Urine WBC (Auto) Urine Creatinine Urine Total Protein Fluid Total Protein Vancomycin Trough Rheumatoid Factor Complement C4 Miscellaneous Test Crossmatch 10/19/16 10/19/16 10/19/16 04:00 04:00 05:25 WBC 17.4 H RBC 2.54 L Hgb 7.7 L Hct 23.6 L MCV MCH MCHC RDW 17.3 H Plt Count Lymph % (Auto) [place] % (Auto) Lymph # [place] # Baso # Seg Neutrophils % Seg Neuts % (Manual) Lymphocytes % (Manual) Monocytes % (Manual) Eosinophils % (Manual) Basophils % (Manual) Nucleated RBC % Seg Neutrophils # Seg Neutrophils # Man Lymphocytes # (Manual) Monocytes # (Manual) Eosinophils # (Manual) Basophils # (Manual) PT INR Fibrinogen dRVVT Confirm Interp Factor V Activity POC ABG pH POC ABG pCO2 POC ABG pO2 ABG pO2 ABG HCO3 ABG Base Excess ABG Hemoglobin Oxyhemoglobin Sodium Potassium Chloride Carbon Dioxide BUN 72 H Creatinine 2.1 H Glucose 116 H POC Glucose 119 H Lactic Acid Calcium Ionized Calcium Phosphorus Magnesium Direct Bilirubin AST ALT Alkaline Phosphatase Lactate Dehydrogenase Troponin T C-Reactive Protein Total Protein Albumin Prealbumin Triglycerides Cholesterol LDL Cholesterol Direct HDL Cholesterol 25-OH Vitamin D Total PTH Intact Urine pH Urine WBC (Auto) Urine Creatinine Urine Total Protein Fluid Total Protein Vancomycin Trough Rheumatoid Factor Complement C4 Miscellaneous Test Crossmatch 10/19/16 10/19/16 10/20/16 11:46 23:59 06:00 WBC RBC Hgb Hct MCV MCH MCHC RDW Plt Count Lymph % (Auto) [place] % (Auto) Lymph # [place] # Baso # Seg Neutrophils % Seg Neuts % (Manual) Lymphocytes % (Manual) Monocytes % (Manual) Eosinophils % (Manual) Basophils % (Manual) Nucleated RBC % Seg Neutrophils # Seg Neutrophils # Man Lymphocytes # (Manual) Monocytes # (Manual) Eosinophils # (Manual) Basophils # (Manual) PT INR Fibrinogen dRVVT Confirm Interp Factor V Activity POC ABG pH POC ABG pCO2 POC ABG pO2 ABG pO2 ABG HCO3 ABG Base Excess ABG Hemoglobin Oxyhemoglobin Sodium Potassium Chloride Carbon Dioxide 17 L BUN 94 H Creatinine 2.7 H Glucose POC Glucose 116 H 117 H Lactic Acid Calcium Ionized Calcium Phosphorus Magnesium Direct Bilirubin AST ALT Alkaline Phosphatase Lactate Dehydrogenase Troponin T C-Reactive Protein Total Protein Albumin Prealbumin Triglycerides Cholesterol LDL Cholesterol Direct HDL Cholesterol 25-OH Vitamin D Total PTH Intact Urine pH Urine WBC (Auto) Urine Creatinine Urine Total Protein Fluid Total Protein Vancomycin Trough Rheumatoid Factor Complement C4 Miscellaneous Test Crossmatch 10/20/16 10/20/16 10/20/16 06:00 11:49 16:00 WBC 19.7 H RBC 2.51 L Hgb 7.7 L Hct 23.5 L MCV MCH MCHC RDW 17.5 H Plt Count Lymph % (Auto) [place] % (Auto) Lymph # [place] # Baso # Seg Neutrophils % Seg Neuts % (Manual) Lymphocytes % (Manual) Monocytes % (Manual) Eosinophils % (Manual) Basophils % (Manual) Nucleated RBC % Seg Neutrophils # Seg Neutrophils # Man Lymphocytes # (Manual) Monocytes # (Manual) Eosinophils # (Manual) Basophils # (Manual) PT INR Fibrinogen dRVVT Confirm Interp Factor V Activity POC ABG pH POC ABG pCO2 POC ABG pO2 ABG pO2 ABG HCO3 ABG Base Excess ABG Hemoglobin Oxyhemoglobin Sodium Potassium Chloride Carbon Dioxide BUN Creatinine Glucose POC Glucose 117 H Lactic Acid Calcium Ionized Calcium Phosphorus Magnesium Direct Bilirubin AST ALT Alkaline Phosphatase Lactate Dehydrogenase Troponin T C-Reactive Protein Total Protein Albumin Prealbumin Triglycerides Cholesterol LDL Cholesterol Direct HDL Cholesterol 25-OH Vitamin D Total PTH Intact Urine pH Urine WBC (Auto) Urine Creatinine Urine Total Protein Fluid Total Protein Vancomycin Trough Rheumatoid Factor Complement C4 Miscellaneous Test Flexitest 1 H Crossmatch 10/20/16 10/20/16 10/21/16 18:36 23:39 04:00 WBC RBC Hgb Hct MCV MCH MCHC RDW Plt Count Lymph % (Auto) [place] % (Auto) Lymph # [place] # Baso # Seg Neutrophils % Seg Neuts % (Manual) Lymphocytes % (Manual) Monocytes % (Manual) Eosinophils % (Manual) Basophils % (Manual) Nucleated RBC % Seg Neutrophils # Seg Neutrophils # Man Lymphocytes # (Manual) Monocytes # (Manual) Eosinophils # (Manual) Basophils # (Manual) PT INR Fibrinogen dRVVT Confirm Interp Factor V Activity POC ABG pH POC ABG pCO2 POC ABG pO2 ABG pO2 ABG HCO3 ABG Base Excess ABG Hemoglobin Oxyhemoglobin Sodium Potassium 5.4 H D Chloride Carbon Dioxide 15 L BUN 110 H Creatinine 3.0 H Glucose POC Glucose 127 H 114 H Lactic Acid Calcium Ionized Calcium Phosphorus Magnesium Direct Bilirubin AST ALT Alkaline Phosphatase Lactate Dehydrogenase Troponin T C-Reactive Protein Total Protein Albumin Prealbumin Triglycerides Cholesterol LDL Cholesterol Direct HDL Cholesterol 25-OH Vitamin D Total PTH Intact Urine pH Urine WBC (Auto) Urine Creatinine Urine Total Protein Fluid Total Protein Vancomycin Trough Rheumatoid Factor Complement C4 Miscellaneous Test Crossmatch 10/21/16 10/21/16 10/22/16 05:54 23:46 05:18 WBC RBC Hgb Hct MCV MCH MCHC RDW Plt Count Lymph % (Auto) [place] % (Auto) Lymph # [place] # Baso # Seg Neutrophils % Seg Neuts % (Manual) Lymphocytes % (Manual) Monocytes % (Manual) Eosinophils % (Manual) Basophils % (Manual) Nucleated RBC % Seg Neutrophils # Seg Neutrophils # Man Lymphocytes # (Manual) Monocytes # (Manual) Eosinophils # (Manual) Basophils # (Manual) PT INR Fibrinogen dRVVT Confirm Interp Factor V Activity POC ABG pH POC ABG pCO2 POC ABG pO2 ABG pO2 ABG HCO3 ABG Base Excess ABG Hemoglobin Oxyhemoglobin Sodium Potassium Chloride Carbon Dioxide BUN Creatinine Glucose POC Glucose 119 H 108 H 109 H Lactic Acid Calcium Ionized Calcium Phosphorus Magnesium Direct Bilirubin AST ALT Alkaline Phosphatase Lactate Dehydrogenase Troponin T C-Reactive Protein Total Protein Albumin Prealbumin Triglycerides Cholesterol LDL Cholesterol Direct HDL Cholesterol 25-OH Vitamin D Total PTH Intact Urine pH Urine WBC (Auto) Urine Creatinine Urine Total Protein Fluid Total Protein Vancomycin Trough Rheumatoid Factor Complement C4 Miscellaneous Test Crossmatch 10/22/16 10/22/16 10/22/16 06:40 06:40 06:40 WBC 14.0 H RBC 2.03 L Hgb 7.0 L Hct 20.5 L MCV 98 H MCH 34 H MCHC 35 H RDW 17.8 H Plt Count Lymph % (Auto) [place] % (Auto) 9.9 H Lymph # [place] # 1.4 H Baso # 0.2 H Seg Neutrophils % 72.0 H Seg Neuts % (Manual) Lymphocytes % (Manual) Monocytes % (Manual) Eosinophils % (Manual) Basophils % (Manual) Nucleated RBC % Seg Neutrophils # 10.0 H Seg Neutrophils # Man Lymphocytes # (Manual) Monocytes # (Manual) Eosinophils # (Manual) Basophils # (Manual) PT INR Fibrinogen dRVVT Confirm Interp Factor V Activity POC ABG pH POC ABG pCO2 POC ABG pO2 ABG pO2 ABG HCO3 ABG Base Excess ABG Hemoglobin Oxyhemoglobin Sodium 130 L D Potassium Chloride 92.4 L Carbon Dioxide 20 L BUN 50 H Creatinine 1.6 H Glucose 589 H* POC Glucose Lactic Acid Calcium 7.8 L D Ionized Calcium Phosphorus Magnesium 1.60 L Direct Bilirubin AST ALT Alkaline Phosphatase Lactate Dehydrogenase Troponin T C-Reactive Protein Total Protein Albumin Prealbumin Triglycerides Cholesterol LDL Cholesterol Direct HDL Cholesterol 25-OH Vitamin D Total PTH Intact Urine pH Urine WBC (Auto) Urine Creatinine Urine Total Protein Fluid Total Protein Vancomycin Trough Rheumatoid Factor Complement C4 Miscellaneous Test Crossmatch 10/22/16 10/22/16 10/22/16 11:39 16:44 23:36 WBC RBC Hgb Hct MCV MCH MCHC RDW Plt Count Lymph % (Auto) [place] % (Auto) Lymph # [place] # Baso # Seg Neutrophils % Seg Neuts % (Manual) Lymphocytes % (Manual) Monocytes % (Manual) Eosinophils % (Manual) Basophils % (Manual) Nucleated RBC % Seg Neutrophils # Seg Neutrophils # Man Lymphocytes # (Manual) Monocytes # (Manual) Eosinophils # (Manual) Basophils # (Manual) PT INR Fibrinogen dRVVT Confirm Interp Factor V Activity POC ABG pH POC ABG pCO2 POC ABG pO2 ABG pO2 ABG HCO3 ABG Base Excess ABG Hemoglobin Oxyhemoglobin Sodium Potassium Chloride Carbon Dioxide BUN Creatinine Glucose POC Glucose 142 H 163 H 123 H Lactic Acid Calcium Ionized Calcium Phosphorus Magnesium Direct Bilirubin AST ALT Alkaline Phosphatase Lactate Dehydrogenase Troponin T C-Reactive Protein Total Protein Albumin Prealbumin Triglycerides Cholesterol LDL Cholesterol Direct HDL Cholesterol 25-OH Vitamin D Total PTH Intact Urine pH Urine WBC (Auto) Urine Creatinine Urine Total Protein Fluid Total Protein Vancomycin Trough Rheumatoid Factor Complement C4 Miscellaneous Test Crossmatch 10/23/16 10/23/16 10/23/16 04:58 06:00 12:12 WBC RBC Hgb Hct MCV MCH MCHC RDW Plt Count Lymph % (Auto) [place] % (Auto) Lymph # [place] # Baso # Seg Neutrophils % Seg Neuts % (Manual) Lymphocytes % (Manual) Monocytes % (Manual) Eosinophils % (Manual) Basophils % (Manual) Nucleated RBC % Seg Neutrophils # Seg Neutrophils # Man Lymphocytes # (Manual) Monocytes # (Manual) Eosinophils # (Manual) Basophils # (Manual) PT INR Fibrinogen dRVVT Confirm Interp Factor V Activity POC ABG pH POC ABG pCO2 POC ABG pO2 ABG pO2 ABG HCO3 ABG Base Excess ABG Hemoglobin Oxyhemoglobin Sodium 133 L Potassium 3.5 L Chloride 96.1 L Carbon Dioxide 18 L BUN 76 H Creatinine 2.1 H Glucose POC Glucose 133 H 138 H Lactic Acid Calcium 8.3 L Ionized Calcium Phosphorus Magnesium Direct Bilirubin AST ALT Alkaline Phosphatase Lactate Dehydrogenase Troponin T C-Reactive Protein Total Protein Albumin Prealbumin Triglycerides Cholesterol LDL Cholesterol Direct HDL Cholesterol 25-OH Vitamin D Total PTH Intact Urine pH Urine WBC (Auto) Urine Creatinine Urine Total Protein Fluid Total Protein Vancomycin Trough Rheumatoid Factor Complement C4 Miscellaneous Test Crossmatch 10/23/16 10/23/16 10/24/16 16:53 23:37 04:00 WBC RBC Hgb Hct MCV MCH MCHC RDW Plt Count Lymph % (Auto) [place] % (Auto) Lymph # [place] # Baso # Seg Neutrophils % Seg Neuts % (Manual) Lymphocytes % (Manual) Monocytes % (Manual) Eosinophils % (Manual) Basophils % (Manual) Nucleated RBC % Seg Neutrophils # Seg Neutrophils # Man Lymphocytes # (Manual) Monocytes # (Manual) Eosinophils # (Manual) Basophils # (Manual) PT INR Fibrinogen dRVVT Confirm Interp Factor V Activity POC ABG pH POC ABG pCO2 POC ABG pO2 ABG pO2 ABG HCO3 ABG Base Excess ABG Hemoglobin Oxyhemoglobin Sodium 131 L Potassium Chloride 94.5 L Carbon Dioxide 19 L BUN 97 H Creatinine 2.6 H Glucose 110 H POC Glucose 125 H 123 H Lactic Acid Calcium 8.3 L Ionized Calcium Phosphorus Magnesium Direct Bilirubin AST ALT Alkaline Phosphatase Lactate Dehydrogenase Troponin T C-Reactive Protein Total Protein Albumin Prealbumin Triglycerides Cholesterol LDL Cholesterol Direct HDL Cholesterol 25-OH Vitamin D Total PTH Intact Urine pH Urine WBC (Auto) Urine Creatinine Urine Total Protein Fluid Total Protein Vancomycin Trough Rheumatoid Factor Complement C4 Miscellaneous Test Crossmatch 10/24/16 10/24/16 10/24/16 07:49 11:39 17:52 WBC RBC Hgb 6.0 L Hct 19.7 L* MCV MCH MCHC RDW Plt Count Lymph % (Auto) [place] % (Auto) Lymph # [place] # Baso # Seg Neutrophils % Seg Neuts % (Manual) Lymphocytes % (Manual) Monocytes % (Manual) Eosinophils % (Manual) Basophils % (Manual) Nucleated RBC % Seg Neutrophils # Seg Neutrophils # Man Lymphocytes # (Manual) Monocytes # (Manual) Eosinophils # (Manual) Basophils # (Manual) PT INR Fibrinogen dRVVT Confirm Interp Factor V Activity POC ABG pH POC ABG pCO2 POC ABG pO2 ABG pO2 ABG HCO3 ABG Base Excess ABG Hemoglobin Oxyhemoglobin Sodium Potassium Chloride Carbon Dioxide BUN Creatinine Glucose POC Glucose 106 H 158 H Lactic Acid Calcium Ionized Calcium Phosphorus Magnesium Direct Bilirubin AST ALT Alkaline Phosphatase Lactate Dehydrogenase Troponin T C-Reactive Protein Total Protein Albumin Prealbumin Triglycerides Cholesterol LDL Cholesterol Direct HDL Cholesterol 25-OH Vitamin D Total PTH Intact Urine pH Urine WBC (Auto) Urine Creatinine Urine Total Protein Fluid Total Protein Vancomycin Trough Rheumatoid Factor Complement C4 Miscellaneous Test Crossmatch 10/24/16 10/24/16 10/24/16 20:00 22:27 Unknown WBC RBC Hgb 9.4 L D Hct 27.5 L D MCV MCH MCHC RDW Plt Count Lymph % (Auto) [place] % (Auto) Lymph # [place] # Baso # Seg Neutrophils % Seg Neuts % (Manual) Lymphocytes % (Manual) Monocytes % (Manual) Eosinophils % (Manual) Basophils % (Manual) Nucleated RBC % Seg Neutrophils # Seg Neutrophils # Man Lymphocytes # (Manual) Monocytes # (Manual) Eosinophils # (Manual) Basophils # (Manual) PT INR Fibrinogen dRVVT Confirm Interp Factor V Activity POC ABG pH POC ABG pCO2 POC ABG pO2 ABG pO2 ABG HCO3 ABG Base Excess ABG Hemoglobin Oxyhemoglobin Sodium Potassium Chloride Carbon Dioxide BUN Creatinine Glucose POC Glucose 125 H Lactic Acid Calcium Ionized Calcium Phosphorus Magnesium Direct Bilirubin AST ALT Alkaline Phosphatase Lactate Dehydrogenase Troponin T C-Reactive Protein Total Protein Albumin Prealbumin Triglycerides Cholesterol LDL Cholesterol Direct HDL Cholesterol 25-OH Vitamin D Total PTH Intact Urine pH Urine WBC (Auto) Urine Creatinine Urine Total Protein Fluid Total Protein Vancomycin Trough Rheumatoid Factor Complement C4 Miscellaneous Test Crossmatch See Detail 10/25/16 10/25/16 10/25/16 04:00 04:00 04:00 WBC 14.2 H RBC 2.98 L Hgb 9.0 L Hct 26.2 L MCV MCH MCHC RDW 16.6 H Plt Count Lymph % (Auto) [place] % (Auto) 10.7 H Lymph # [place] # 1.5 H Baso # Seg Neutrophils % 73.6 H Seg Neuts % (Manual) Lymphocytes % (Manual) Monocytes % (Manual) Eosinophils % (Manual) Basophils % (Manual) Nucleated RBC % Seg Neutrophils # 10.5 H Seg Neutrophils # Man Lymphocytes # (Manual) Monocytes # (Manual) Eosinophils # (Manual) Basophils # (Manual) PT INR Fibrinogen dRVVT Confirm Interp Factor V Activity POC ABG pH POC ABG pCO2 POC ABG pO2 ABG pO2 ABG HCO3 ABG Base Excess ABG Hemoglobin Oxyhemoglobin Sodium 132 L Potassium Chloride 94.7 L Carbon Dioxide BUN 51 H Creatinine 1.6 H Glucose 130 H POC Glucose Lactic Acid Calcium 8.3 L Ionized Calcium Phosphorus 1.60 L D Magnesium Direct Bilirubin AST ALT Alkaline Phosphatase Lactate Dehydrogenase Troponin T C-Reactive Protein Total Protein Albumin Prealbumin Triglycerides Cholesterol LDL Cholesterol Direct HDL Cholesterol 25-OH Vitamin D Total PTH Intact Urine pH Urine WBC (Auto) Urine Creatinine Urine Total Protein Fluid Total Protein Vancomycin Trough Rheumatoid Factor Complement C4 Miscellaneous Test Crossmatch 10/25/16 10/25/16 10/25/16 04:32 11:48 17:22 WBC RBC Hgb Hct MCV MCH MCHC RDW Plt Count Lymph % (Auto) [place] % (Auto) Lymph # [place] # Baso # Seg Neutrophils % Seg Neuts % (Manual) Lymphocytes % (Manual) Monocytes % (Manual) Eosinophils % (Manual) Basophils % (Manual) Nucleated RBC % Seg Neutrophils # Seg Neutrophils # Man Lymphocytes # (Manual) Monocytes # (Manual) Eosinophils # (Manual) Basophils # (Manual) PT INR Fibrinogen dRVVT Confirm Interp Factor V Activity POC ABG pH POC ABG pCO2 POC ABG pO2 ABG pO2 ABG HCO3 ABG Base Excess ABG Hemoglobin Oxyhemoglobin Sodium Potassium Chloride Carbon Dioxide BUN Creatinine Glucose POC Glucose 124 H 171 H 120 H Lactic Acid Calcium Ionized Calcium Phosphorus Magnesium Direct Bilirubin AST ALT Alkaline Phosphatase Lactate Dehydrogenase Troponin T C-Reactive Protein Total Protein Albumin Prealbumin Triglycerides Cholesterol LDL Cholesterol Direct HDL Cholesterol 25-OH Vitamin D Total PTH Intact Urine pH Urine WBC (Auto) Urine Creatinine Urine Total Protein Fluid Total Protein Vancomycin Trough Rheumatoid Factor Complement C4 Miscellaneous Test Crossmatch 10/26/16 10/26/16 10/26/16 04:54 07:06 07:06 WBC 16.9 H RBC 3.06 L Hgb 9.1 L Hct 26.9 L MCV MCH MCHC RDW 16.9 H Plt Count Lymph % (Auto) [place] % (Auto) Lymph # [place] # Baso # Seg Neutrophils % Seg Neuts % (Manual) 71.0 H Lymphocytes % (Manual) 5.0 L Monocytes % (Manual) 12.0 H Eosinophils % (Manual) Basophils % (Manual) Nucleated RBC % Seg Neutrophils # Seg Neutrophils # Man 12.0 H Lymphocytes # (Manual) 0.8 L Monocytes # (Manual) 2.0 H Eosinophils # (Manual) Basophils # (Manual) PT INR Fibrinogen dRVVT Confirm Interp Factor V Activity POC ABG pH POC ABG pCO2 POC ABG pO2 ABG pO2 ABG HCO3 ABG Base Excess ABG Hemoglobin Oxyhemoglobin Sodium 135 L Potassium Chloride 97.1 L Carbon Dioxide BUN 73 H Creatinine 2.2 H Glucose 117 H POC Glucose 123 H Lactic Acid Calcium Ionized Calcium Phosphorus 1.70 L Magnesium Direct Bilirubin AST ALT Alkaline Phosphatase Lactate Dehydrogenase Troponin T C-Reactive Protein Total Protein Albumin Prealbumin Triglycerides Cholesterol LDL Cholesterol Direct HDL Cholesterol 25-OH Vitamin D Total PTH Intact Urine pH Urine WBC (Auto) Urine Creatinine Urine Total Protein Fluid Total Protein Vancomycin Trough Rheumatoid Factor Complement C4 Miscellaneous Test Crossmatch 10/26/16 10/26/16 10/26/16 12:12 17:29 23:42 WBC RBC Hgb Hct MCV MCH MCHC RDW Plt Count Lymph % (Auto) [place] % (Auto) Lymph # [place] # Baso # Seg Neutrophils % Seg Neuts % (Manual) Lymphocytes % (Manual) Monocytes % (Manual) Eosinophils % (Manual) Basophils % (Manual) Nucleated RBC % Seg Neutrophils # Seg Neutrophils # Man Lymphocytes # (Manual) Monocytes # (Manual) Eosinophils # (Manual) Basophils # (Manual) PT INR Fibrinogen dRVVT Confirm Interp Factor V Activity POC ABG pH POC ABG pCO2 POC ABG pO2 ABG pO2 ABG HCO3 ABG Base Excess ABG Hemoglobin Oxyhemoglobin Sodium Potassium Chloride Carbon Dioxide BUN Creatinine Glucose POC Glucose 126 H 161 H 118 H Lactic Acid Calcium Ionized Calcium Phosphorus Magnesium Direct Bilirubin AST ALT Alkaline Phosphatase Lactate Dehydrogenase Troponin T C-Reactive Protein Total Protein Albumin Prealbumin Triglycerides Cholesterol LDL Cholesterol Direct HDL Cholesterol 25-OH Vitamin D Total PTH Intact Urine pH Urine WBC (Auto) Urine Creatinine Urine Total Protein Fluid Total Protein Vancomycin Trough Rheumatoid Factor Complement C4 Miscellaneous Test Crossmatch 10/27/16 10/27/16 10/27/16 05:03 06:30 06:30 WBC 13.9 H RBC 3.09 L Hgb 9.2 L Hct 27.5 L MCV MCH MCHC RDW 17.0 H Plt Count Lymph % (Auto) [place] % (Auto) Lymph # [place] # Baso # Seg Neutrophils % Seg Neuts % (Manual) 78.0 H Lymphocytes % (Manual) Monocytes % (Manual) Eosinophils % (Manual) Basophils % (Manual) Nucleated RBC % 2.0 H Seg Neutrophils # Seg Neutrophils # Man 10.8 H Lymphocytes # (Manual) Monocytes # (Manual) 1.0 H Eosinophils # (Manual) Basophils # (Manual) PT INR Fibrinogen dRVVT Confirm Interp Factor V Activity POC ABG pH POC ABG pCO2 POC ABG pO2 ABG pO2 ABG HCO3 ABG Base Excess ABG Hemoglobin Oxyhemoglobin Sodium Potassium Chloride Carbon Dioxide BUN 40 H Creatinine 1.5 H Glucose 135 H POC Glucose 107 H Lactic Acid Calcium 8.3 L Ionized Calcium Phosphorus 1.30 L D Magnesium Direct Bilirubin AST ALT Alkaline Phosphatase Lactate Dehydrogenase Troponin T C-Reactive Protein Total Protein Albumin Prealbumin Triglycerides Cholesterol LDL Cholesterol Direct HDL Cholesterol 25-OH Vitamin D Total PTH Intact Urine pH Urine WBC (Auto) Urine Creatinine Urine Total Protein Fluid Total Protein Vancomycin Trough Rheumatoid Factor Complement C4 Miscellaneous Test Crossmatch 10/27/16 10/27/16 10/27/16 13:27 18:07 23:40 WBC RBC Hgb Hct MCV MCH MCHC RDW Plt Count Lymph % (Auto) [place] % (Auto) Lymph # [place] # Baso # Seg Neutrophils % Seg Neuts % (Manual) Lymphocytes % (Manual) Monocytes % (Manual) Eosinophils % (Manual) Basophils % (Manual) Nucleated RBC % Seg Neutrophils # Seg Neutrophils # Man Lymphocytes # (Manual) Monocytes # (Manual) Eosinophils # (Manual) Basophils # (Manual) PT INR Fibrinogen dRVVT Confirm Interp Factor V Activity POC ABG pH POC ABG pCO2 POC ABG pO2 ABG pO2 ABG HCO3 ABG Base Excess ABG Hemoglobin Oxyhemoglobin Sodium Potassium Chloride Carbon Dioxide BUN Creatinine Glucose POC Glucose 117 H 121 H 118 H Lactic Acid Calcium Ionized Calcium Phosphorus Magnesium Direct Bilirubin AST ALT Alkaline Phosphatase Lactate Dehydrogenase Troponin T C-Reactive Protein Total Protein Albumin Prealbumin Triglycerides Cholesterol LDL Cholesterol Direct HDL Cholesterol 25-OH Vitamin D Total PTH Intact Urine pH Urine WBC (Auto) Urine Creatinine Urine Total Protein Fluid Total Protein Vancomycin Trough Rheumatoid Factor Complement C4 Miscellaneous Test Crossmatch 10/28/16 10/28/16 10/28/16 05:48 06:45 06:45 WBC 14.7 H RBC 3.05 L Hgb 9.0 L Hct 26.9 L MCV MCH MCHC RDW 16.8 H Plt Count Lymph % (Auto) 8.2 L [place] % (Auto) 8.4 H Lymph # [place] # 1.2 H Baso # Seg Neutrophils % 81.9 H Seg Neuts % (Manual) Lymphocytes % (Manual) Monocytes % (Manual) Eosinophils % (Manual) Basophils % (Manual) Nucleated RBC % Seg Neutrophils # 12.1 H Seg Neutrophils # Man Lymphocytes # (Manual) Monocytes # (Manual) Eosinophils # (Manual) Basophils # (Manual) PT INR Fibrinogen dRVVT Confirm Interp Factor V Activity POC ABG pH POC ABG pCO2 POC ABG pO2 ABG pO2 ABG HCO3 ABG Base Excess ABG Hemoglobin Oxyhemoglobin Sodium Potassium Chloride Carbon Dioxide BUN 60 H Creatinine 1.9 H Glucose 120 H POC Glucose 114 H Lactic Acid Calcium Ionized Calcium Phosphorus Magnesium Direct Bilirubin AST ALT Alkaline Phosphatase Lactate Dehydrogenase Troponin T C-Reactive Protein Total Protein Albumin Prealbumin Triglycerides Cholesterol LDL Cholesterol Direct HDL Cholesterol 25-OH Vitamin D Total PTH Intact Urine pH Urine WBC (Auto) Urine Creatinine Urine Total Protein Fluid Total Protein Vancomycin Trough Rheumatoid Factor Complement C4 Miscellaneous Test Crossmatch 10/28/16 10/28/16 10/29/16 17:08 23:50 05:10 WBC RBC Hgb Hct MCV MCH MCHC RDW Plt Count Lymph % (Auto) [place] % (Auto) Lymph # [place] # Baso # Seg Neutrophils % Seg Neuts % (Manual) Lymphocytes % (Manual) Monocytes % (Manual) Eosinophils % (Manual) Basophils % (Manual) Nucleated RBC % Seg Neutrophils # Seg Neutrophils # Man Lymphocytes # (Manual) Monocytes # (Manual) Eosinophils # (Manual) Basophils # (Manual) PT INR Fibrinogen dRVVT Confirm Interp Factor V Activity POC ABG pH POC ABG pCO2 POC ABG pO2 ABG pO2 ABG HCO3 ABG Base Excess ABG Hemoglobin Oxyhemoglobin Sodium Potassium Chloride Carbon Dioxide BUN Creatinine Glucose POC Glucose 109 H 110 H 124 H Lactic Acid Calcium Ionized Calcium Phosphorus Magnesium Direct Bilirubin AST ALT Alkaline Phosphatase Lactate Dehydrogenase Troponin T C-Reactive Protein Total Protein Albumin Prealbumin Triglycerides Cholesterol LDL Cholesterol Direct HDL Cholesterol 25-OH Vitamin D Total PTH Intact Urine pH Urine WBC (Auto) Urine Creatinine Urine Total Protein Fluid Total Protein Vancomycin Trough Rheumatoid Factor Complement C4 Miscellaneous Test Crossmatch 10/29/16 10/29/16 10/29/16 07:45 07:45 12:19 WBC 14.7 H RBC 3.15 L Hgb 9.3 L Hct 28.9 L MCV MCH MCHC RDW 17.0 H Plt Count Lymph % (Auto) 11.9 L [place] % (Auto) 8.6 H Lymph # [place] # 1.3 H Baso # Seg Neutrophils % 78.1 H Seg Neuts % (Manual) Lymphocytes % (Manual) Monocytes % (Manual) Eosinophils % (Manual) Basophils % (Manual) Nucleated RBC % Seg Neutrophils # 11.4 H Seg Neutrophils # Man Lymphocytes # (Manual) Monocytes # (Manual) Eosinophils # (Manual) Basophils # (Manual) PT INR Fibrinogen dRVVT Confirm Interp Factor V Activity POC ABG pH POC ABG pCO2 POC ABG pO2 ABG pO2 ABG HCO3 ABG Base Excess ABG Hemoglobin Oxyhemoglobin Sodium Potassium 5.1 H Chloride Carbon Dioxide 19 L BUN 78 H Creatinine 2.2 H Glucose 116 H POC Glucose 118 H Lactic Acid Calcium Ionized Calcium Phosphorus Magnesium Direct Bilirubin AST ALT Alkaline Phosphatase Lactate Dehydrogenase Troponin T C-Reactive Protein Total Protein Albumin Prealbumin Triglycerides Cholesterol LDL Cholesterol Direct HDL Cholesterol 25-OH Vitamin D Total PTH Intact Urine pH Urine WBC (Auto) Urine Creatinine Urine Total Protein Fluid Total Protein Vancomycin Trough Rheumatoid Factor Complement C4 Miscellaneous Test Crossmatch 10/29/16 10/30/16 10/30/16 17:49 01:52 03:28 WBC RBC Hgb Hct MCV MCH MCHC RDW Plt Count Lymph % (Auto) [place] % (Auto) Lymph # [place] # Baso # Seg Neutrophils % Seg Neuts % (Manual) Lymphocytes % (Manual) Monocytes % (Manual) Eosinophils % (Manual) Basophils % (Manual) Nucleated RBC % Seg Neutrophils # Seg Neutrophils # Man Lymphocytes # (Manual) Monocytes # (Manual) Eosinophils # (Manual) Basophils # (Manual) PT INR Fibrinogen dRVVT Confirm Interp Factor V Activity POC ABG pH POC ABG pCO2 POC ABG pO2 ABG pO2 ABG HCO3 ABG Base Excess ABG Hemoglobin Oxyhemoglobin Sodium Potassium 5.4 H Chloride 97.5 L Carbon Dioxide 19 L BUN 90 H Creatinine 2.5 H Glucose POC Glucose 120 H 129 H Lactic Acid Calcium Ionized Calcium Phosphorus 5.20 H Magnesium Direct Bilirubin AST ALT Alkaline Phosphatase Lactate Dehydrogenase Troponin T C-Reactive Protein Total Protein Albumin Prealbumin Triglycerides Cholesterol LDL Cholesterol Direct HDL Cholesterol 25-OH Vitamin D Total PTH Intact Urine pH Urine WBC (Auto) Urine Creatinine Urine Total Protein Fluid Total Protein Vancomycin Trough Rheumatoid Factor Complement C4 Miscellaneous Test Crossmatch 10/30/16 10/30/16 10/30/16 03:28 08:19 08:19 WBC 11.6 H 15.9 H RBC 2.75 L 2.82 L Hgb 7.9 L 8.3 L Hct 24.2 L 25.2 L MCV MCH MCHC RDW 16.7 H 17.2 H Plt Count Lymph % (Auto) [place] % (Auto) 9.8 H Lymph # [place] # 1.1 H Baso # Seg Neutrophils % 74.2 H Seg Neuts % (Manual) Lymphocytes % (Manual) Monocytes % (Manual) Eosinophils % (Manual) Basophils % (Manual) Nucleated RBC % Seg Neutrophils # 8.6 H Seg Neutrophils # Man Lymphocytes # (Manual) Monocytes # (Manual) Eosinophils # (Manual) Basophils # (Manual) PT INR Fibrinogen dRVVT Confirm Interp Factor V Activity POC ABG pH POC ABG pCO2 POC ABG pO2 ABG pO2 ABG HCO3 ABG Base Excess ABG Hemoglobin Oxyhemoglobin Sodium Potassium 5.3 H Chloride 97.4 L Carbon Dioxide 19 L BUN 93 H Creatinine 2.6 H Glucose POC Glucose Lactic Acid Calcium Ionized Calcium Phosphorus Magnesium Direct Bilirubin AST ALT Alkaline Phosphatase Lactate Dehydrogenase Troponin T C-Reactive Protein Total Protein Albumin Prealbumin Triglycerides Cholesterol LDL Cholesterol Direct HDL Cholesterol 25-OH Vitamin D Total PTH Intact Urine pH Urine WBC (Auto) Urine Creatinine Urine Total Protein Fluid Total Protein Vancomycin Trough Rheumatoid Factor Complement C4 Miscellaneous Test Crossmatch 10/30/16 10/30/16 10/31/16 17:11 23:56 00:40 WBC RBC Hgb Hct MCV MCH MCHC RDW Plt Count Lymph % (Auto) [place] % (Auto) Lymph # [place] # Baso # Seg Neutrophils % Seg Neuts % (Manual) Lymphocytes % (Manual) Monocytes % (Manual) Eosinophils % (Manual) Basophils % (Manual) Nucleated RBC % Seg Neutrophils # Seg Neutrophils # Man Lymphocytes # (Manual) Monocytes # (Manual) Eosinophils # (Manual) Basophils # (Manual) PT INR Fibrinogen dRVVT Confirm Interp Factor V Activity POC ABG pH POC ABG pCO2 POC ABG pO2 ABG pO2 ABG HCO3 ABG Base Excess ABG Hemoglobin Oxyhemoglobin Sodium Potassium Chloride Carbon Dioxide BUN Creatinine Glucose POC Glucose 106 H 117 H 120 H Lactic Acid Calcium Ionized Calcium Phosphorus Magnesium Direct Bilirubin AST ALT Alkaline Phosphatase Lactate Dehydrogenase Troponin T C-Reactive Protein Total Protein Albumin Prealbumin Triglycerides Cholesterol LDL Cholesterol Direct HDL Cholesterol 25-OH Vitamin D Total PTH Intact Urine pH Urine WBC (Auto) Urine Creatinine Urine Total Protein Fluid Total Protein Vancomycin Trough Rheumatoid Factor Complement C4 Miscellaneous Test Crossmatch 10/31/16 10/31/16 10/31/16 05:43 07:15 07:15 WBC 12.1 H RBC 2.63 L Hgb 7.7 L Hct 23.3 L MCV MCH MCHC RDW 16.7 H Plt Count Lymph % (Auto) 11.7 L [place] % (Auto) 7.7 H Lymph # [place] # 0.9 H Baso # Seg Neutrophils % 78.0 H Seg Neuts % (Manual) Lymphocytes % (Manual) Monocytes % (Manual) Eosinophils % (Manual) Basophils % (Manual) Nucleated RBC % Seg Neutrophils # 9.4 H Seg Neutrophils # Man Lymphocytes # (Manual) Monocytes # (Manual) Eosinophils # (Manual) Basophils # (Manual) PT INR Fibrinogen dRVVT Confirm Interp Factor V Activity POC ABG pH POC ABG pCO2 POC ABG pO2 ABG pO2 ABG HCO3 ABG Base Excess ABG Hemoglobin Oxyhemoglobin Sodium Potassium Chloride 96.4 L Carbon Dioxide 21 L BUN 99 H Creatinine 2.6 H Glucose 144 H POC Glucose 125 H Lactic Acid Calcium Ionized Calcium Phosphorus 4.80 H Magnesium Direct Bilirubin AST ALT Alkaline Phosphatase Lactate Dehydrogenase Troponin T C-Reactive Protein Total Protein Albumin Prealbumin Triglycerides Cholesterol LDL Cholesterol Direct HDL Cholesterol 25-OH Vitamin D Total PTH Intact Urine pH Urine WBC (Auto) Urine Creatinine Urine Total Protein Fluid Total Protein Vancomycin Trough Rheumatoid Factor Complement C4 Miscellaneous Test Crossmatch 10/31/16 10/31/16 11/01/16 11:46 18:34 00:20 WBC RBC Hgb Hct MCV MCH MCHC RDW Plt Count Lymph % (Auto) [place] % (Auto) Lymph # [place] # Baso # Seg Neutrophils % Seg Neuts % (Manual) Lymphocytes % (Manual) Monocytes % (Manual) Eosinophils % (Manual) Basophils % (Manual) Nucleated RBC % Seg Neutrophils # Seg Neutrophils # Man Lymphocytes # (Manual) Monocytes # (Manual) Eosinophils # (Manual) Basophils # (Manual) PT INR Fibrinogen dRVVT Confirm Interp Factor V Activity POC ABG pH POC ABG pCO2 POC ABG pO2 ABG pO2 ABG HCO3 ABG Base Excess ABG Hemoglobin Oxyhemoglobin Sodium Potassium Chloride Carbon Dioxide BUN Creatinine Glucose POC Glucose 159 H 140 H 132 H Lactic Acid Calcium Ionized Calcium Phosphorus Magnesium Direct Bilirubin AST ALT Alkaline Phosphatase Lactate Dehydrogenase Troponin T C-Reactive Protein Total Protein Albumin Prealbumin Triglycerides Cholesterol LDL Cholesterol Direct HDL Cholesterol 25-OH Vitamin D Total PTH Intact Urine pH Urine WBC (Auto) Urine Creatinine Urine Total Protein Fluid Total Protein Vancomycin Trough Rheumatoid Factor Complement C4 Miscellaneous Test Crossmatch 11/01/16 11/01/16 11/01/16 04:55 04:55 06:11 WBC 11.2 H RBC 2.68 L Hgb 7.5 L Hct 23.7 L MCV MCH MCHC RDW 16.1 H Plt Count Lymph % (Auto) [place] % (Auto) 9.8 H Lymph # [place] # 1.1 H Baso # Seg Neutrophils % 70.8 H Seg Neuts % (Manual) Lymphocytes % (Manual) Monocytes % (Manual) Eosinophils % (Manual) Basophils % (Manual) Nucleated RBC % Seg Neutrophils # 7.9 H Seg Neutrophils # Man Lymphocytes # (Manual) Monocytes # (Manual) Eosinophils # (Manual) Basophils # (Manual) PT INR Fibrinogen dRVVT Confirm Interp Factor V Activity POC ABG pH POC ABG pCO2 POC ABG pO2 ABG pO2 ABG HCO3 ABG Base Excess ABG Hemoglobin Oxyhemoglobin Sodium Potassium 3.3 L D Chloride Carbon Dioxide BUN 61 H Creatinine 1.9 H Glucose 114 H POC Glucose 115 H Lactic Acid Calcium Ionized Calcium Phosphorus 1.80 L D Magnesium Direct Bilirubin AST ALT Alkaline Phosphatase Lactate Dehydrogenase Troponin T C-Reactive Protein Total Protein Albumin Prealbumin Triglycerides Cholesterol LDL Cholesterol Direct HDL Cholesterol 25-OH Vitamin D Total PTH Intact Urine pH Urine WBC (Auto) Urine Creatinine Urine Total Protein Fluid Total Protein Vancomycin Trough Rheumatoid Factor Complement C4 Miscellaneous Test Crossmatch 11/01/16 11/01/16 11/01/16 12:29 18:23 23:58 WBC RBC Hgb Hct MCV MCH MCHC RDW Plt Count Lymph % (Auto) [place] % (Auto) Lymph # [place] # Baso # Seg Neutrophils % Seg Neuts % (Manual) Lymphocytes % (Manual) Monocytes % (Manual) Eosinophils % (Manual) Basophils % (Manual) Nucleated RBC % Seg Neutrophils # Seg Neutrophils # Man Lymphocytes # (Manual) Monocytes # (Manual) Eosinophils # (Manual) Basophils # (Manual) PT INR Fibrinogen dRVVT Confirm Interp Factor V Activity POC ABG pH POC ABG pCO2 POC ABG pO2 ABG pO2 ABG HCO3 ABG Base Excess ABG Hemoglobin Oxyhemoglobin Sodium Potassium Chloride Carbon Dioxide BUN Creatinine Glucose POC Glucose 142 H 143 H 128 H Lactic Acid Calcium Ionized Calcium Phosphorus Magnesium Direct Bilirubin AST ALT Alkaline Phosphatase Lactate Dehydrogenase Troponin T C-Reactive Protein Total Protein Albumin Prealbumin Triglycerides Cholesterol LDL Cholesterol Direct HDL Cholesterol 25-OH Vitamin D Total PTH Intact Urine pH Urine WBC (Auto) Urine Creatinine Urine Total Protein Fluid Total Protein Vancomycin Trough Rheumatoid Factor Complement C4 Miscellaneous Test Crossmatch 11/02/16 11/02/16 11/02/16 04:16 05:29 11:58 WBC RBC Hgb Hct MCV MCH MCHC RDW Plt Count Lymph % (Auto) [place] % (Auto) Lymph # [place] # Baso # Seg Neutrophils % Seg Neuts % (Manual) Lymphocytes % (Manual) Monocytes % (Manual) Eosinophils % (Manual) Basophils % (Manual) Nucleated RBC % Seg Neutrophils # Seg Neutrophils # Man Lymphocytes # (Manual) Monocytes # (Manual) Eosinophils # (Manual) Basophils # (Manual) PT INR Fibrinogen dRVVT Confirm Interp Factor V Activity POC ABG pH POC ABG pCO2 POC ABG pO2 ABG pO2 ABG HCO3 ABG Base Excess ABG Hemoglobin Oxyhemoglobin Sodium Potassium 3.1 L Chloride Carbon Dioxide BUN 73 H Creatinine 2.3 H Glucose 112 H POC Glucose 135 H 149 H Lactic Acid Calcium Ionized Calcium Phosphorus Magnesium Direct Bilirubin AST ALT Alkaline Phosphatase Lactate Dehydrogenase Troponin T C-Reactive Protein Total Protein Albumin Prealbumin Triglycerides Cholesterol LDL Cholesterol Direct HDL Cholesterol 25-OH Vitamin D Total PTH Intact Urine pH Urine WBC (Auto) Urine Creatinine Urine Total Protein Fluid Total Protein Vancomycin Trough Rheumatoid Factor Complement C4 Miscellaneous Test Crossmatch 11/02/16 11/02/16 11/03/16 17:42 22:54 06:00 WBC RBC Hgb Hct MCV MCH MCHC RDW Plt Count Lymph % (Auto) [place] % (Auto) Lymph # [place] # Baso # Seg Neutrophils % Seg Neuts % (Manual) Lymphocytes % (Manual) Monocytes % (Manual) Eosinophils % (Manual) Basophils % (Manual) Nucleated RBC % Seg Neutrophils # Seg Neutrophils # Man Lymphocytes # (Manual) Monocytes # (Manual) Eosinophils # (Manual) Basophils # (Manual) PT INR Fibrinogen dRVVT Confirm Interp Factor V Activity POC ABG pH POC ABG pCO2 POC ABG pO2 ABG pO2 ABG HCO3 ABG Base Excess ABG Hemoglobin Oxyhemoglobin Sodium Potassium Chloride 96.7 L Carbon Dioxide BUN 41 H Creatinine 1.5 H Glucose 145 H POC Glucose 182 H 115 H Lactic Acid Calcium Ionized Calcium Phosphorus 1.60 L D Magnesium 1.50 L Direct Bilirubin AST ALT Alkaline Phosphatase Lactate Dehydrogenase Troponin T C-Reactive Protein Total Protein Albumin Prealbumin Triglycerides Cholesterol LDL Cholesterol Direct HDL Cholesterol 25-OH Vitamin D Total PTH Intact Urine pH Urine WBC (Auto) Urine Creatinine Urine Total Protein Fluid Total Protein Vancomycin Trough Rheumatoid Factor Complement C4 Miscellaneous Test Crossmatch 11/03/16 11/03/16 11/03/16 11:53 17:45 23:37 WBC RBC Hgb Hct MCV MCH MCHC RDW Plt Count Lymph % (Auto) [place] % (Auto) Lymph # [place] # Baso # Seg Neutrophils % Seg Neuts % (Manual) Lymphocytes % (Manual) Monocytes % (Manual) Eosinophils % (Manual) Basophils % (Manual) Nucleated RBC % Seg Neutrophils # Seg Neutrophils # Man Lymphocytes # (Manual) Monocytes # (Manual) Eosinophils # (Manual) Basophils # (Manual) PT INR Fibrinogen dRVVT Confirm Interp Factor V Activity POC ABG pH POC ABG pCO2 POC ABG pO2 ABG pO2 ABG HCO3 ABG Base Excess ABG Hemoglobin Oxyhemoglobin Sodium Potassium Chloride Carbon Dioxide BUN Creatinine Glucose POC Glucose 131 H 134 H 113 H Lactic Acid Calcium Ionized Calcium Phosphorus Magnesium Direct Bilirubin AST ALT Alkaline Phosphatase Lactate Dehydrogenase Troponin T C-Reactive Protein Total Protein Albumin Prealbumin Triglycerides Cholesterol LDL Cholesterol Direct HDL Cholesterol 25-OH Vitamin D Total PTH Intact Urine pH Urine WBC (Auto) Urine Creatinine Urine Total Protein Fluid Total Protein Vancomycin Trough Rheumatoid Factor Complement C4 Miscellaneous Test Crossmatch 11/04/16 11/04/16 11/04/16 05:41 06:00 12:10 WBC RBC Hgb Hct MCV MCH MCHC RDW Plt Count Lymph % (Auto) [place] % (Auto) Lymph # [place] # Baso # Seg Neutrophils % Seg Neuts % (Manual) Lymphocytes % (Manual) Monocytes % (Manual) Eosinophils % (Manual) Basophils % (Manual) Nucleated RBC % Seg Neutrophils # Seg Neutrophils # Man Lymphocytes # (Manual) Monocytes # (Manual) Eosinophils # (Manual) Basophils # (Manual) PT INR Fibrinogen dRVVT Confirm Interp Factor V Activity POC ABG pH POC ABG pCO2 POC ABG pO2 ABG pO2 ABG HCO3 ABG Base Excess ABG Hemoglobin Oxyhemoglobin Sodium Potassium Chloride 96.7 L Carbon Dioxide BUN 52 H Creatinine 1.9 H Glucose 126 H POC Glucose 137 H 191 H Lactic Acid Calcium Ionized Calcium Phosphorus Magnesium Direct Bilirubin AST ALT Alkaline Phosphatase Lactate Dehydrogenase Troponin T C-Reactive Protein Total Protein Albumin Prealbumin Triglycerides Cholesterol LDL Cholesterol Direct HDL Cholesterol 25-OH Vitamin D Total PTH Intact Urine pH Urine WBC (Auto) Urine Creatinine Urine Total Protein Fluid Total Protein Vancomycin Trough Rheumatoid Factor Complement C4 Miscellaneous Test Crossmatch 11/04/16 11/05/16 11/05/16 22:57 03:10 05:10 WBC RBC Hgb Hct MCV MCH MCHC RDW Plt Count Lymph % (Auto) [place] % (Auto) Lymph # [place] # Baso # Seg Neutrophils % Seg Neuts % (Manual) Lymphocytes % (Manual) Monocytes % (Manual) Eosinophils % (Manual) Basophils % (Manual) Nucleated RBC % Seg Neutrophils # Seg Neutrophils # Man Lymphocytes # (Manual) Monocytes # (Manual) Eosinophils # (Manual) Basophils # (Manual) PT INR Fibrinogen dRVVT Confirm Interp Factor V Activity POC ABG pH POC ABG pCO2 POC ABG pO2 ABG pO2 ABG HCO3 ABG Base Excess ABG Hemoglobin Oxyhemoglobin Sodium 136 L Potassium Chloride 97.2 L Carbon Dioxide BUN 32 H Creatinine 1.3 H Glucose 123 H POC Glucose 125 H 108 H Lactic Acid Calcium 7.8 L Ionized Calcium Phosphorus Magnesium Direct Bilirubin AST ALT Alkaline Phosphatase Lactate Dehydrogenase Troponin T C-Reactive Protein Total Protein Albumin Prealbumin Triglycerides Cholesterol LDL Cholesterol Direct HDL Cholesterol 25-OH Vitamin D Total PTH Intact Urine pH Urine WBC (Auto) Urine Creatinine Urine Total Protein Fluid Total Protein Vancomycin Trough Rheumatoid Factor Complement C4 Miscellaneous Test Crossmatch 11/05/16 11/05/16 11/05/16 12:23 13:09 13:25 WBC RBC Hgb Hct MCV MCH MCHC RDW Plt Count Lymph % (Auto) [place] % (Auto) Lymph # [place] # Baso # Seg Neutrophils % Seg Neuts % (Manual) Lymphocytes % (Manual) Monocytes % (Manual) Eosinophils % (Manual) Basophils % (Manual) Nucleated RBC % Seg Neutrophils # Seg Neutrophils # Man Lymphocytes # (Manual) Monocytes # (Manual) Eosinophils # (Manual) Basophils # (Manual) PT INR Fibrinogen dRVVT Confirm Interp Factor V Activity POC ABG pH POC ABG pCO2 POC ABG pO2 ABG pO2 ABG HCO3 ABG Base Excess ABG Hemoglobin Oxyhemoglobin Sodium Potassium Chloride Carbon Dioxide BUN Creatinine Glucose POC Glucose 124 H Lactic Acid Calcium Ionized Calcium Phosphorus Magnesium Direct Bilirubin AST ALT Alkaline Phosphatase Lactate Dehydrogenase Troponin T C-Reactive Protein 11.40 H Total Protein Albumin Prealbumin Triglycerides Cholesterol LDL Cholesterol Direct HDL Cholesterol 25-OH Vitamin D Total PTH Intact Urine pH 9.0 H Urine WBC (Auto) Urine Creatinine Urine Total Protein Fluid Total Protein Vancomycin Trough Rheumatoid Factor Complement C4 Miscellaneous Test Crossmatch 09/11/05/16 11/05/16 13:25 17:54 23:42 WBC RBC Hgb Hct MCV MCH MCHC RDW Plt Count Lymph % (Auto) [place] % (Auto) Lymph # [place] # Baso # Seg Neutrophils % Seg Neuts % (Manual) Lymphocytes % (Manual) Monocytes % (Manual) Eosinophils % (Manual) Basophils % (Manual) Nucleated RBC % Seg Neutrophils # Seg Neutrophils # Man Lymphocytes # (Manual) Monocytes # (Manual) Eosinophils # (Manual) Basophils # (Manual) PT INR Fibrinogen dRVVT Confirm Interp Factor V Activity POC ABG pH POC ABG pCO2 POC ABG pO2 ABG pO2 ABG HCO3 ABG Base Excess ABG Hemoglobin Oxyhemoglobin Sodium Potassium Chloride Carbon Dioxide BUN Creatinine Glucose POC Glucose 114 H 134 H Lactic Acid Calcium Ionized Calcium Phosphorus Magnesium Direct Bilirubin AST ALT Alkaline Phosphatase Lactate Dehydrogenase Troponin T C-Reactive Protein Total Protein Albumin Prealbumin Triglycerides Cholesterol LDL Cholesterol Direct HDL Cholesterol 25-OH Vitamin D Total PTH Intact Urine pH Urine WBC (Auto) Urine Creatinine Urine Total Protein Fluid Total Protein Vancomycin Trough Rheumatoid Factor Complement C4 Miscellaneous Test Flexitest 1 H Crossmatch 11/06/16 11/06/16 11/06/16 04:56 06:25 06:25 WBC RBC 2.50 L Hgb 7.3 L Hct 22.5 L MCV MCH MCHC RDW 16.9 H Plt Count Lymph % (Auto) [place] % (Auto) 10.5 H Lymph # [place] # 1.1 H Baso # Seg Neutrophils % Seg Neuts % (Manual) Lymphocytes % (Manual) Monocytes % (Manual) Eosinophils % (Manual) Basophils % (Manual) Nucleated RBC % Seg Neutrophils # Seg Neutrophils # Man Lymphocytes # (Manual) Monocytes # (Manual) Eosinophils # (Manual) Basophils # (Manual) PT INR Fibrinogen dRVVT Confirm Interp Factor V Activity POC ABG pH POC ABG pCO2 POC ABG pO2 ABG pO2 ABG HCO3 ABG Base Excess ABG Hemoglobin Oxyhemoglobin Sodium Potassium 5.1 H Chloride 95.9 L Carbon Dioxide BUN 52 H Creatinine 1.8 H Glucose 117 H POC Glucose 120 H Lactic Acid Calcium Ionized Calcium Phosphorus Magnesium Direct Bilirubin AST 103 H ALT 77 H Alkaline Phosphatase 285 H Lactate Dehydrogenase Troponin T C-Reactive Protein Total Protein 6.2 L Albumin 1.8 L Prealbumin 0.180 L Triglycerides Cholesterol LDL Cholesterol Direct HDL Cholesterol 25-OH Vitamin D Total PTH Intact Urine pH Urine WBC (Auto) Urine Creatinine Urine Total Protein Fluid Total Protein Vancomycin Trough Rheumatoid Factor Complement C4 Miscellaneous Test Crossmatch 11/06/16 11/06/16 11/06/16 11:56 17:14 23:52 WBC RBC Hgb Hct MCV MCH MCHC RDW Plt Count Lymph % (Auto) [place] % (Auto) Lymph # [place] # Baso # Seg Neutrophils % Seg Neuts % (Manual) Lymphocytes % (Manual) Monocytes % (Manual) Eosinophils % (Manual) Basophils % (Manual) Nucleated RBC % Seg Neutrophils # Seg Neutrophils # Man Lymphocytes # (Manual) Monocytes # (Manual) Eosinophils # (Manual) Basophils # (Manual) PT INR Fibrinogen dRVVT Confirm Interp Factor V Activity POC ABG pH POC ABG pCO2 POC ABG pO2 ABG pO2 ABG HCO3 ABG Base Excess ABG Hemoglobin Oxyhemoglobin Sodium Potassium Chloride Carbon Dioxide BUN Creatinine Glucose POC Glucose 141 H 125 H 130 H Lactic Acid Calcium Ionized Calcium Phosphorus Magnesium Direct Bilirubin AST ALT Alkaline Phosphatase Lactate Dehydrogenase Troponin T C-Reactive Protein Total Protein Albumin Prealbumin Triglycerides Cholesterol LDL Cholesterol Direct HDL Cholesterol 25-OH Vitamin D Total PTH Intact Urine pH Urine WBC (Auto) Urine Creatinine Urine Total Protein Fluid Total Protein Vancomycin Trough Rheumatoid Factor Complement C4 Miscellaneous Test Crossmatch 11/07/16 11/07/16 11/07/16 06:30 06:30 09:37 WBC RBC 2.18 L Hgb 6.3 L Hct 19.7 L* MCV MCH MCHC RDW 16.8 H Plt Count Lymph % (Auto) [place] % (Auto) 10.0 H Lymph # [place] # 1.0 H Baso # Seg Neutrophils % Seg Neuts % (Manual) Lymphocytes % (Manual) Monocytes % (Manual) Eosinophils % (Manual) Basophils % (Manual) Nucleated RBC % Seg Neutrophils # Seg Neutrophils # Man Lymphocytes # (Manual) Monocytes # (Manual) Eosinophils # (Manual) Basophils # (Manual) PT INR Fibrinogen dRVVT Confirm Interp Factor V Activity POC ABG pH POC ABG pCO2 POC ABG pO2 ABG pO2 ABG HCO3 ABG Base Excess ABG Hemoglobin Oxyhemoglobin Sodium 135 L Potassium Chloride 95.6 L Carbon Dioxide BUN 70 H Creatinine 2.0 H Glucose 126 H POC Glucose Lactic Acid Calcium Ionized Calcium Phosphorus Magnesium Direct Bilirubin AST ALT Alkaline Phosphatase Lactate Dehydrogenase Troponin T C-Reactive Protein Total Protein Albumin Prealbumin Triglycerides Cholesterol LDL Cholesterol Direct HDL Cholesterol 25-OH Vitamin D Total PTH Intact Urine pH Urine WBC (Auto) Urine Creatinine Urine Total Protein Fluid Total Protein Vancomycin Trough Rheumatoid Factor Complement C4 Miscellaneous Test Crossmatch See Detail 11/07/16 11/07/16 11/07/16 12:52 18:51 21:26 WBC RBC Hgb Hct MCV MCH MCHC RDW Plt Count Lymph % (Auto) [place] % (Auto) Lymph # [place] # Baso # Seg Neutrophils % Seg Neuts % (Manual) Lymphocytes % (Manual) Monocytes % (Manual) Eosinophils % (Manual) Basophils % (Manual) Nucleated RBC % Seg Neutrophils # Seg Neutrophils # Man Lymphocytes # (Manual) Monocytes # (Manual) Eosinophils # (Manual) Basophils # (Manual) PT INR Fibrinogen dRVVT Confirm Interp Factor V Activity POC ABG pH 7.523 H POC ABG pCO2 34.6 L POC ABG pO2 53 L ABG pO2 ABG HCO3 ABG Base Excess ABG Hemoglobin Oxyhemoglobin Sodium Potassium Chloride Carbon Dioxide BUN Creatinine Glucose POC Glucose 142 H 155 H Lactic Acid Calcium Ionized Calcium Phosphorus Magnesium Direct Bilirubin AST ALT Alkaline Phosphatase Lactate Dehydrogenase Troponin T C-Reactive Protein Total Protein Albumin Prealbumin Triglycerides Cholesterol LDL Cholesterol Direct HDL Cholesterol 25-OH Vitamin D Total PTH Intact Urine pH Urine WBC (Auto) Urine Creatinine Urine Total Protein Fluid Total Protein Vancomycin Trough Rheumatoid Factor Complement C4 Miscellaneous Test Crossmatch 11/07/16 11/08/16 11/08/16 21:34 13:03 23:37 WBC RBC 2.63 L Hgb 7.7 L Hct 22.7 L MCV MCH MCHC RDW 17.0 H Plt Count Lymph % (Auto) [place] % (Auto) Lymph # [place] # Baso # Seg Neutrophils % Seg Neuts % (Manual) Lymphocytes % (Manual) Monocytes % (Manual) Eosinophils % (Manual) Basophils % (Manual) Nucleated RBC % Seg Neutrophils # Seg Neutrophils # Man Lymphocytes # (Manual) Monocytes # (Manual) Eosinophils # (Manual) Basophils # (Manual) PT INR Fibrinogen dRVVT Confirm Interp Factor V Activity POC ABG pH 7.478 H POC ABG pCO2 34.0 L POC ABG pO2 50 L ABG pO2 ABG HCO3 ABG Base Excess ABG Hemoglobin Oxyhemoglobin Sodium Potassium Chloride Carbon Dioxide BUN Creatinine Glucose POC Glucose 113 H Lactic Acid Calcium Ionized Calcium Phosphorus Magnesium Direct Bilirubin AST ALT Alkaline Phosphatase Lactate Dehydrogenase Troponin T C-Reactive Protein Total Protein Albumin Prealbumin Triglycerides Cholesterol LDL Cholesterol Direct HDL Cholesterol 25-OH Vitamin D Total PTH Intact Urine pH Urine WBC (Auto) Urine Creatinine Urine Total Protein Fluid Total Protein Vancomycin Trough Rheumatoid Factor Complement C4 Miscellaneous Test Crossmatch 11/09/16 11/09/16 11/09/16 04:35 10:15 18:21 WBC RBC 2.68 L Hgb 7.8 L Hct 23.3 L MCV MCH MCHC RDW 17.0 H Plt Count Lymph % (Auto) [place] % (Auto) 12.1 H Lymph # [place] # 1.1 H Baso # Seg Neutrophils % Seg Neuts % (Manual) Lymphocytes % (Manual) Monocytes % (Manual) Eosinophils % (Manual) Basophils % (Manual) Nucleated RBC % Seg Neutrophils # Seg Neutrophils # Man Lymphocytes # (Manual) Monocytes # (Manual) Eosinophils # (Manual) Basophils # (Manual) PT INR Fibrinogen dRVVT Confirm Interp Factor V Activity POC ABG pH POC ABG pCO2 POC ABG pO2 ABG pO2 ABG HCO3 ABG Base Excess ABG Hemoglobin Oxyhemoglobin Sodium Potassium Chloride Carbon Dioxide BUN 51 H Creatinine 1.8 H Glucose POC Glucose 60 L Lactic Acid Calcium 8.3 L Ionized Calcium Phosphorus Magnesium Direct Bilirubin AST ALT Alkaline Phosphatase Lactate Dehydrogenase Troponin T C-Reactive Protein Total Protein Albumin Prealbumin Triglycerides Cholesterol LDL Cholesterol Direct HDL Cholesterol 25-OH Vitamin D Total PTH Intact Urine pH Urine WBC (Auto) Urine Creatinine Urine Total Protein Fluid Total Protein Vancomycin Trough Rheumatoid Factor Complement C4 Miscellaneous Test Crossmatch 11/09/16 11/10/16 11/10/16 18:55 07:00 11:51 WBC RBC Hgb Hct MCV MCH MCHC RDW Plt Count Lymph % (Auto) [place] % (Auto) Lymph # [place] # Baso # Seg Neutrophils % Seg Neuts % (Manual) Lymphocytes % (Manual) Monocytes % (Manual) Eosinophils % (Manual) Basophils % (Manual) Nucleated RBC % Seg Neutrophils # Seg Neutrophils # Man Lymphocytes # (Manual) Monocytes # (Manual) Eosinophils # (Manual) Basophils # (Manual) PT INR Fibrinogen dRVVT Confirm Interp Factor V Activity POC ABG pH POC ABG pCO2 POC ABG pO2 ABG pO2 ABG HCO3 ABG Base Excess ABG Hemoglobin Oxyhemoglobin Sodium Potassium 3.0 L D Chloride 97.4 L Carbon Dioxide BUN 28 H Creatinine 1.3 H Glucose POC Glucose 68 L 120 H Lactic Acid Calcium 7.8 L Ionized Calcium Phosphorus Magnesium Direct Bilirubin AST ALT Alkaline Phosphatase Lactate Dehydrogenase Troponin T C-Reactive Protein Total Protein Albumin Prealbumin Triglycerides Cholesterol LDL Cholesterol Direct HDL Cholesterol 25-OH Vitamin D Total PTH Intact Urine pH Urine WBC (Auto) Urine Creatinine Urine Total Protein Fluid Total Protein Vancomycin Trough Rheumatoid Factor Complement C4 Miscellaneous Test Crossmatch 11/10/16 11/11/16 11/11/16 14:20 06:59 06:59 WBC RBC 2.81 L Hgb 8.1 L Hct 24.4 L MCV MCH MCHC RDW 16.4 H Plt Count Lymph % (Auto) [place] % (Auto) 10.8 H Lymph # [place] # 1.0 H Baso # Seg Neutrophils % Seg Neuts % (Manual) Lymphocytes % (Manual) Monocytes % (Manual) Eosinophils % (Manual) Basophils % (Manual) Nucleated RBC % Seg Neutrophils # Seg Neutrophils # Man Lymphocytes # (Manual) Monocytes # (Manual) Eosinophils # (Manual) Basophils # (Manual) PT INR Fibrinogen dRVVT Confirm Interp Factor V Activity POC ABG pH POC ABG pCO2 POC ABG pO2 ABG pO2 ABG HCO3 ABG Base Excess ABG Hemoglobin Oxyhemoglobin Sodium Potassium Chloride Carbon Dioxide BUN Creatinine Glucose POC Glucose Lactic Acid Calcium Ionized Calcium Phosphorus Magnesium Direct Bilirubin AST ALT Alkaline Phosphatase Lactate Dehydrogenase 196 H Troponin T C-Reactive Protein Total Protein 6.1 L Albumin Prealbumin Triglycerides Cholesterol LDL Cholesterol Direct HDL Cholesterol 25-OH Vitamin D Total PTH Intact Urine pH Urine WBC (Auto) Urine Creatinine Urine Total Protein Fluid Total Protein < 3.0 L Vancomycin Trough Rheumatoid Factor Complement C4 Miscellaneous Test Crossmatch 11/11/16 11/11/16 11/12/16 06:59 09:50 04:00 WBC RBC Hgb Hct MCV MCH MCHC RDW Plt Count Lymph % (Auto) [place] % (Auto) Lymph # [place] # Baso # Seg Neutrophils % Seg Neuts % (Manual) Lymphocytes % (Manual) Monocytes % (Manual) Eosinophils % (Manual) Basophils % (Manual) Nucleated RBC % Seg Neutrophils # Seg Neutrophils # Man Lymphocytes # (Manual) Monocytes # (Manual) Eosinophils # (Manual) Basophils # (Manual) PT INR 1.18 H Fibrinogen dRVVT Confirm Interp Factor V Activity POC ABG pH POC ABG pCO2 POC ABG pO2 ABG pO2 ABG HCO3 ABG Base Excess ABG Hemoglobin Oxyhemoglobin Sodium 136 L 133 L Potassium Chloride 96.1 L 94.8 L Carbon Dioxide 21 L BUN 37 H 42 H Creatinine 1.8 H 2.0 H Glucose POC Glucose Lactic Acid Calcium Ionized Calcium Phosphorus Magnesium Direct Bilirubin AST ALT Alkaline Phosphatase Lactate Dehydrogenase Troponin T C-Reactive Protein Total Protein Albumin Prealbumin Triglycerides Cholesterol LDL Cholesterol Direct HDL Cholesterol 25-OH Vitamin D Total PTH Intact Urine pH Urine WBC (Auto) Urine Creatinine Urine Total Protein Fluid Total Protein Vancomycin Trough Rheumatoid Factor Complement C4 Miscellaneous Test Crossmatch 11/12/16 11/12/16 11/13/16 04:00 23:55 05:53 WBC RBC Hgb 8.9 L Hct 27.2 L MCV MCH MCHC RDW Plt Count Lymph % (Auto) [place] % (Auto) Lymph # [place] # Baso # Seg Neutrophils % Seg Neuts % (Manual) Lymphocytes % (Manual) Monocytes % (Manual) Eosinophils % (Manual) Basophils % (Manual) Nucleated RBC % Seg Neutrophils # Seg Neutrophils # Man Lymphocytes # (Manual) Monocytes # (Manual) Eosinophils # (Manual) Basophils # (Manual) PT INR Fibrinogen dRVVT Confirm Interp Factor V Activity POC ABG pH POC ABG pCO2 POC ABG pO2 ABG pO2 ABG HCO3 ABG Base Excess ABG Hemoglobin Oxyhemoglobin Sodium Potassium Chloride Carbon Dioxide BUN Creatinine Glucose POC Glucose 132 H 120 H Lactic Acid Calcium Ionized Calcium Phosphorus Magnesium Direct Bilirubin AST ALT Alkaline Phosphatase Lactate Dehydrogenase Troponin T C-Reactive Protein Total Protein Albumin Prealbumin Triglycerides Cholesterol LDL Cholesterol Direct HDL Cholesterol 25-OH Vitamin D Total PTH Intact Urine pH Urine WBC (Auto) Urine Creatinine Urine Total Protein Fluid Total Protein Vancomycin Trough Rheumatoid Factor Complement C4 Miscellaneous Test Crossmatch 11/13/16 11/13/16 11/13/16 11:43 17:09 23:41 WBC RBC Hgb Hct MCV MCH MCHC RDW Plt Count Lymph % (Auto) [place] % (Auto) Lymph # [place] # Baso # Seg Neutrophils % Seg Neuts % (Manual) Lymphocytes % (Manual) Monocytes % (Manual) Eosinophils % (Manual) Basophils % (Manual) Nucleated RBC % Seg Neutrophils # Seg Neutrophils # Man Lymphocytes # (Manual) Monocytes # (Manual) Eosinophils # (Manual) Basophils # (Manual) PT INR Fibrinogen dRVVT Confirm Interp Factor V Activity POC ABG pH POC ABG pCO2 POC ABG pO2 ABG pO2 ABG HCO3 ABG Base Excess ABG Hemoglobin Oxyhemoglobin Sodium Potassium Chloride Carbon Dioxide BUN Creatinine Glucose POC Glucose 114 H 113 H 108 H Lactic Acid Calcium Ionized Calcium Phosphorus Magnesium Direct Bilirubin AST ALT Alkaline Phosphatase Lactate Dehydrogenase Troponin T C-Reactive Protein Total Protein Albumin Prealbumin Triglycerides Cholesterol LDL Cholesterol Direct HDL Cholesterol 25-OH Vitamin D Total PTH Intact Urine pH Urine WBC (Auto) Urine Creatinine Urine Total Protein Fluid Total Protein Vancomycin Trough Rheumatoid Factor Complement C4 Miscellaneous Test Crossmatch 11/13/16 11/15/16 11/15/16 Unknown 00:37 03:30 WBC 11.2 H RBC 2.72 L Hgb 7.6 L Hct 23.4 L MCV MCH MCHC RDW 16.5 H Plt Count Lymph % (Auto) [place] % (Auto) Lymph # [place] # Baso # Seg Neutrophils % Seg Neuts % (Manual) Lymphocytes % (Manual) Monocytes % (Manual) Eosinophils % (Manual) Basophils % (Manual) Nucleated RBC % Seg Neutrophils # Seg Neutrophils # Man Lymphocytes # (Manual) Monocytes # (Manual) Eosinophils # (Manual) Basophils # (Manual) PT INR Fibrinogen dRVVT Confirm Interp Factor V Activity POC ABG pH POC ABG pCO2 POC ABG pO2 ABG pO2 ABG HCO3 ABG Base Excess ABG Hemoglobin Oxyhemoglobin Sodium 135 L Potassium Chloride 95.2 L Carbon Dioxide BUN 52 H Creatinine 2.2 H Glucose POC Glucose 108 H Lactic Acid Calcium Ionized Calcium Phosphorus Magnesium Direct Bilirubin AST ALT Alkaline Phosphatase Lactate Dehydrogenase Troponin T C-Reactive Protein Total Protein Albumin Prealbumin Triglycerides Cholesterol LDL Cholesterol Direct HDL Cholesterol 25-OH Vitamin D Total PTH Intact Urine pH Urine WBC (Auto) Urine Creatinine Urine Total Protein Fluid Total Protein Vancomycin Trough Rheumatoid Factor Complement C4 Miscellaneous Test Crossmatch 11/15/16 11/15/16 11/15/16 03:30 05:04 11:50 WBC RBC Hgb Hct MCV MCH MCHC RDW Plt Count Lymph % (Auto) [place] % (Auto) Lymph # [place] # Baso # Seg Neutrophils % Seg Neuts % (Manual) Lymphocytes % (Manual) Monocytes % (Manual) Eosinophils % (Manual) Basophils % (Manual) Nucleated RBC % Seg Neutrophils # Seg Neutrophils # Man Lymphocytes # (Manual) Monocytes # (Manual) Eosinophils # (Manual) Basophils # (Manual) PT INR Fibrinogen dRVVT Confirm Interp Factor V Activity POC ABG pH POC ABG pCO2 POC ABG pO2 ABG pO2 ABG HCO3 ABG Base Excess ABG Hemoglobin Oxyhemoglobin Sodium Potassium 3.4 L Chloride Carbon Dioxide BUN 25 H Creatinine 1.5 H Glucose 103 H POC Glucose 121 H 144 H Lactic Acid Calcium Ionized Calcium Phosphorus Magnesium Direct Bilirubin AST ALT Alkaline Phosphatase Lactate Dehydrogenase Troponin T C-Reactive Protein Total Protein Albumin Prealbumin Triglycerides Cholesterol LDL Cholesterol Direct HDL Cholesterol 25-OH Vitamin D Total PTH Intact Urine pH Urine WBC (Auto) Urine Creatinine Urine Total Protein Fluid Total Protein Vancomycin Trough Rheumatoid Factor Complement C4 Miscellaneous Test Crossmatch 11/15/16 11/15/16 11/16/16 21:28 23:20 11:44 WBC RBC Hgb Hct MCV MCH MCHC RDW Plt Count Lymph % (Auto) [place] % (Auto) Lymph # [place] # Baso # Seg Neutrophils % Seg Neuts % (Manual) Lymphocytes % (Manual) Monocytes % (Manual) Eosinophils % (Manual) Basophils % (Manual) Nucleated RBC % Seg Neutrophils # Seg Neutrophils # Man Lymphocytes # (Manual) Monocytes # (Manual) Eosinophils # (Manual) Basophils # (Manual) PT INR Fibrinogen dRVVT Confirm Interp Factor V Activity POC ABG pH 7.462 H POC ABG pCO2 POC ABG pO2 71 L ABG pO2 ABG HCO3 ABG Base Excess ABG Hemoglobin Oxyhemoglobin Sodium Potassium Chloride Carbon Dioxide BUN Creatinine Glucose POC Glucose 116 H 133 H Lactic Acid Calcium Ionized Calcium Phosphorus Magnesium Direct Bilirubin AST ALT Alkaline Phosphatase Lactate Dehydrogenase Troponin T C-Reactive Protein Total Protein Albumin Prealbumin Triglycerides Cholesterol LDL Cholesterol Direct HDL Cholesterol 25-OH Vitamin D Total PTH Intact Urine pH Urine WBC (Auto) Urine Creatinine Urine Total Protein Fluid Total Protein Vancomycin Trough Rheumatoid Factor Complement C4 Miscellaneous Test Crossmatch 11/16/16 11/16/16 11/16/16 12:20 17:05 23:35 WBC 11.7 H RBC 2.73 L Hgb 7.6 L Hct 23.7 L MCV MCH MCHC RDW 16.6 H Plt Count Lymph % (Auto) [place] % (Auto) Lymph # [place] # Baso # Seg Neutrophils % Seg Neuts % (Manual) Lymphocytes % (Manual) Monocytes % (Manual) Eosinophils % (Manual) Basophils % (Manual) Nucleated RBC % Seg Neutrophils # Seg Neutrophils # Man Lymphocytes # (Manual) Monocytes # (Manual) Eosinophils # (Manual) Basophils # (Manual) PT INR Fibrinogen dRVVT Confirm Interp Factor V Activity POC ABG pH POC ABG pCO2 POC ABG pO2 ABG pO2 ABG HCO3 ABG Base Excess ABG Hemoglobin Oxyhemoglobin Sodium Potassium Chloride Carbon Dioxide BUN Creatinine Glucose POC Glucose 154 H 125 H Lactic Acid Calcium Ionized Calcium Phosphorus Magnesium Direct Bilirubin AST ALT Alkaline Phosphatase Lactate Dehydrogenase Troponin T C-Reactive Protein Total Protein Albumin Prealbumin Triglycerides Cholesterol LDL Cholesterol Direct HDL Cholesterol 25-OH Vitamin D Total PTH Intact Urine pH Urine WBC (Auto) Urine Creatinine Urine Total Protein Fluid Total Protein Vancomycin Trough Rheumatoid Factor Complement C4 Miscellaneous Test Crossmatch 11/17/16 11/17/16 11/17/16 03:20 03:20 03:20 WBC RBC 2.55 L Hgb 7.3 L Hct 21.9 L MCV MCH MCHC RDW 16.6 H Plt Count Lymph % (Auto) [place] % (Auto) 11.5 H Lymph # [place] # 1.1 H Baso # Seg Neutrophils % Seg Neuts % (Manual) Lymphocytes % (Manual) Monocytes % (Manual) Eosinophils % (Manual) Basophils % (Manual) Nucleated RBC % Seg Neutrophils # Seg Neutrophils # Man Lymphocytes # (Manual) Monocytes # (Manual) Eosinophils # (Manual) Basophils # (Manual) PT 16.8 H INR 1.37 H Fibrinogen dRVVT Confirm Interp Factor V Activity POC ABG pH POC ABG pCO2 POC ABG pO2 ABG pO2 ABG HCO3 ABG Base Excess ABG Hemoglobin Oxyhemoglobin Sodium Potassium 3.5 L Chloride Carbon Dioxide BUN 21 H Creatinine Glucose POC Glucose Lactic Acid Calcium 7.9 L Ionized Calcium Phosphorus Magnesium Direct Bilirubin AST ALT Alkaline Phosphatase Lactate Dehydrogenase Troponin T C-Reactive Protein Total Protein Albumin Prealbumin Triglycerides Cholesterol LDL Cholesterol Direct HDL Cholesterol 25-OH Vitamin D Total PTH Intact Urine pH Urine WBC (Auto) Urine Creatinine Urine Total Protein Fluid Total Protein Vancomycin Trough Rheumatoid Factor Complement C4 Miscellaneous Test Crossmatch 11/17/16 11/17/16 11/17/16 06:34 11:21 21:22 WBC RBC Hgb Hct MCV MCH MCHC RDW Plt Count Lymph % (Auto) [place] % (Auto) Lymph # [place] # Baso # Seg Neutrophils % Seg Neuts % (Manual) Lymphocytes % (Manual) Monocytes % (Manual) Eosinophils % (Manual) Basophils % (Manual) Nucleated RBC % Seg Neutrophils # Seg Neutrophils # Man Lymphocytes # (Manual) Monocytes # (Manual) Eosinophils # (Manual) Basophils # (Manual) PT INR Fibrinogen dRVVT Confirm Interp Factor V Activity POC ABG pH 7.467 H POC ABG pCO2 POC ABG pO2 73 L ABG pO2 ABG HCO3 ABG Base Excess ABG Hemoglobin Oxyhemoglobin Sodium Potassium Chloride Carbon Dioxide BUN Creatinine Glucose POC Glucose 121 H 119 H Lactic Acid Calcium Ionized Calcium Phosphorus Magnesium Direct Bilirubin AST ALT Alkaline Phosphatase Lactate Dehydrogenase Troponin T C-Reactive Protein Total Protein Albumin Prealbumin Triglycerides Cholesterol LDL Cholesterol Direct HDL Cholesterol 25-OH Vitamin D Total PTH Intact Urine pH Urine WBC (Auto) Urine Creatinine Urine Total Protein Fluid Total Protein Vancomycin Trough Rheumatoid Factor Complement C4 Miscellaneous Test Crossmatch 11/18/16 11/18/16 11/19/16 12:16 17:19 00:00 WBC RBC Hgb Hct MCV MCH MCHC RDW Plt Count Lymph % (Auto) [place] % (Auto) Lymph # [place] # Baso # Seg Neutrophils % Seg Neuts % (Manual) Lymphocytes % (Manual) Monocytes % (Manual) Eosinophils % (Manual) Basophils % (Manual) Nucleated RBC % Seg Neutrophils # Seg Neutrophils # Man Lymphocytes # (Manual) Monocytes # (Manual) Eosinophils # (Manual) Basophils # (Manual) PT INR Fibrinogen dRVVT Confirm Interp Factor V Activity POC ABG pH POC ABG pCO2 POC ABG pO2 ABG pO2 ABG HCO3 ABG Base Excess ABG Hemoglobin Oxyhemoglobin Sodium Potassium Chloride Carbon Dioxide BUN Creatinine Glucose POC Glucose 124 H 162 H 139 H Lactic Acid Calcium Ionized Calcium Phosphorus Magnesium Direct Bilirubin AST ALT Alkaline Phosphatase Lactate Dehydrogenase Troponin T C-Reactive Protein Total Protein Albumin Prealbumin Triglycerides Cholesterol LDL Cholesterol Direct HDL Cholesterol 25-OH Vitamin D Total PTH Intact Urine pH Urine WBC (Auto) Urine Creatinine Urine Total Protein Fluid Total Protein Vancomycin Trough Rheumatoid Factor Complement C4 Miscellaneous Test Crossmatch 11/19/16 11/19/16 11/20/16 05:00 12:43 00:40 WBC RBC Hgb Hct MCV MCH MCHC RDW Plt Count Lymph % (Auto) [place] % (Auto) Lymph # [place] # Baso # Seg Neutrophils % Seg Neuts % (Manual) Lymphocytes % (Manual) Monocytes % (Manual) Eosinophils % (Manual) Basophils % (Manual) Nucleated RBC % Seg Neutrophils # Seg Neutrophils # Man Lymphocytes # (Manual) Monocytes # (Manual) Eosinophils # (Manual) Basophils # (Manual) PT INR Fibrinogen dRVVT Confirm Interp Factor V Activity POC ABG pH POC ABG pCO2 POC ABG pO2 ABG pO2 ABG HCO3 ABG Base Excess ABG Hemoglobin Oxyhemoglobin Sodium Potassium Chloride Carbon Dioxide BUN Creatinine Glucose POC Glucose 110 H 125 H 136 H Lactic Acid Calcium Ionized Calcium Phosphorus Magnesium Direct Bilirubin AST ALT Alkaline Phosphatase Lactate Dehydrogenase Troponin T C-Reactive Protein Total Protein Albumin Prealbumin Triglycerides Cholesterol LDL Cholesterol Direct HDL Cholesterol 25-OH Vitamin D Total PTH Intact Urine pH Urine WBC (Auto) Urine Creatinine Urine Total Protein Fluid Total Protein Vancomycin Trough Rheumatoid Factor Complement C4 Miscellaneous Test Crossmatch 11/20/16 11/20/16 11/20/16 05:00 05:00 05:51 WBC 13.1 H RBC 2.74 L Hgb 7.7 L Hct 23.6 L MCV MCH MCHC RDW 16.9 H Plt Count Lymph % (Auto) [place] % (Auto) 10.8 H Lymph # [place] # 1.4 H Baso # Seg Neutrophils % Seg Neuts % (Manual) Lymphocytes % (Manual) Monocytes % (Manual) Eosinophils % (Manual) Basophils % (Manual) Nucleated RBC % Seg Neutrophils # 7.9 H Seg Neutrophils # Man Lymphocytes # (Manual) Monocytes # (Manual) Eosinophils # (Manual) Basophils # (Manual) PT INR Fibrinogen dRVVT Confirm Interp Factor V Activity POC ABG pH POC ABG pCO2 POC ABG pO2 ABG pO2 ABG HCO3 ABG Base Excess ABG Hemoglobin Oxyhemoglobin Sodium Potassium Chloride Carbon Dioxide BUN 31 H Creatinine 1.8 H Glucose 129 H POC Glucose 133 H Lactic Acid Calcium Ionized Calcium Phosphorus Magnesium Direct Bilirubin AST ALT Alkaline Phosphatase Lactate Dehydrogenase Troponin T C-Reactive Protein Total Protein Albumin Prealbumin Triglycerides Cholesterol LDL Cholesterol Direct HDL Cholesterol 25-OH Vitamin D Total PTH Intact Urine pH Urine WBC (Auto) Urine Creatinine Urine Total Protein Fluid Total Protein Vancomycin Trough Rheumatoid Factor Complement C4 Miscellaneous Test Crossmatch 11/20/16 11/20/16 11/21/16 12:40 18:10 01:20 WBC RBC Hgb Hct MCV MCH MCHC RDW Plt Count Lymph % (Auto) [place] % (Auto) Lymph # [place] # Baso # Seg Neutrophils % Seg Neuts % (Manual) Lymphocytes % (Manual) Monocytes % (Manual) Eosinophils % (Manual) Basophils % (Manual) Nucleated RBC % Seg Neutrophils # Seg Neutrophils # Man Lymphocytes # (Manual) Monocytes # (Manual) Eosinophils # (Manual) Basophils # (Manual) PT INR Fibrinogen dRVVT Confirm Interp Factor V Activity POC ABG pH POC ABG pCO2 POC ABG pO2 ABG pO2 ABG HCO3 ABG Base Excess ABG Hemoglobin Oxyhemoglobin Sodium Potassium Chloride Carbon Dioxide BUN Creatinine Glucose POC Glucose 134 H 138 H 136 H Lactic Acid Calcium Ionized Calcium Phosphorus Magnesium Direct Bilirubin AST ALT Alkaline Phosphatase Lactate Dehydrogenase Troponin T C-Reactive Protein Total Protein Albumin Prealbumin Triglycerides Cholesterol LDL Cholesterol Direct HDL Cholesterol 25-OH Vitamin D Total PTH Intact Urine pH Urine WBC (Auto) Urine Creatinine Urine Total Protein Fluid Total Protein Vancomycin Trough Rheumatoid Factor Complement C4 Miscellaneous Test Crossmatch 11/21/16 11/21/16 11/21/16 07:04 07:45 07:45 WBC 22.0 H RBC 2.91 L Hgb 8.2 L Hct 25.4 L MCV MCH MCHC RDW 17.1 H Plt Count Lymph % (Auto) [place] % (Auto) Lymph # [place] # Baso # Seg Neutrophils % Seg Neuts % (Manual) Lymphocytes % (Manual) 8.0 L Monocytes % (Manual) Eosinophils % (Manual) Basophils % (Manual) Nucleated RBC % Seg Neutrophils # Seg Neutrophils # Man 14.7 H Lymphocytes # (Manual) Monocytes # (Manual) 1.1 H Eosinophils # (Manual) Basophils # (Manual) PT INR Fibrinogen dRVVT Confirm Interp Factor V Activity POC ABG pH POC ABG pCO2 POC ABG pO2 ABG pO2 ABG HCO3 ABG Base Excess ABG Hemoglobin Oxyhemoglobin Sodium Potassium Chloride Carbon Dioxide BUN 42 H Creatinine 2.0 H Glucose POC Glucose 108 H Lactic Acid Calcium Ionized Calcium Phosphorus Magnesium Direct Bilirubin AST ALT Alkaline Phosphatase Lactate Dehydrogenase Troponin T C-Reactive Protein Total Protein Albumin Prealbumin Triglycerides Cholesterol LDL Cholesterol Direct HDL Cholesterol 25-OH Vitamin D Total PTH Intact Urine pH Urine WBC (Auto) Urine Creatinine Urine Total Protein Fluid Total Protein Vancomycin Trough Rheumatoid Factor Complement C4 Miscellaneous Test Crossmatch 11/21/16 11/21/16 11/21/16 08:38 10:09 11:20 WBC RBC Hgb Hct MCV MCH MCHC RDW Plt Count Lymph % (Auto) [place] % (Auto) Lymph # [place] # Baso # Seg Neutrophils % Seg Neuts % (Manual) Lymphocytes % (Manual) Monocytes % (Manual) Eosinophils % (Manual) Basophils % (Manual) Nucleated RBC % Seg Neutrophils # Seg Neutrophils # Man Lymphocytes # (Manual) Monocytes # (Manual) Eosinophils # (Manual) Basophils # (Manual) PT INR Fibrinogen dRVVT Confirm Interp Factor V Activity POC ABG pH 7.346 L POC ABG pCO2 34.4 L POC ABG pO2 314 H ABG pO2 ABG HCO3 ABG Base Excess ABG Hemoglobin Oxyhemoglobin Sodium Potassium Chloride Carbon Dioxide BUN Creatinine Glucose POC Glucose 195 H 153 H Lactic Acid Calcium Ionized Calcium Phosphorus Magnesium Direct Bilirubin AST ALT Alkaline Phosphatase Lactate Dehydrogenase Troponin T C-Reactive Protein Total Protein Albumin Prealbumin Triglycerides Cholesterol LDL Cholesterol Direct HDL Cholesterol 25-OH Vitamin D Total PTH Intact Urine pH Urine WBC (Auto) Urine Creatinine Urine Total Protein Fluid Total Protein Vancomycin Trough Rheumatoid Factor Complement C4 Miscellaneous Test Crossmatch 11/21/16 11/22/16 11/22/16 23:37 04:48 05:00 WBC 29.7 H RBC 2.73 L Hgb 7.5 L Hct 24.2 L MCV MCH 27 L MCHC RDW 17.4 H Plt Count Lymph % (Auto) [place] % (Auto) Lymph # [place] # Baso # Seg Neutrophils % Seg Neuts % (Manual) Lymphocytes % (Manual) 7.0 L Monocytes % (Manual) Eosinophils % (Manual) Basophils % (Manual) Nucleated RBC % Seg Neutrophils # Seg Neutrophils # Man 15.4 H Lymphocytes # (Manual) Monocytes # (Manual) Eosinophils # (Manual) Basophils # (Manual) PT INR Fibrinogen dRVVT Confirm Interp Factor V Activity POC ABG pH POC ABG pCO2 24.6 L POC ABG pO2 189 H ABG pO2 ABG HCO3 ABG Base Excess ABG Hemoglobin Oxyhemoglobin Sodium Potassium Chloride Carbon Dioxide BUN Creatinine Glucose POC Glucose 65 L Lactic Acid Calcium Ionized Calcium Phosphorus Magnesium Direct Bilirubin AST ALT Alkaline Phosphatase Lactate Dehydrogenase Troponin T C-Reactive Protein Total Protein Albumin Prealbumin Triglycerides Cholesterol LDL Cholesterol Direct HDL Cholesterol 25-OH Vitamin D Total PTH Intact Urine pH Urine WBC (Auto) Urine Creatinine Urine Total Protein Fluid Total Protein Vancomycin Trough Rheumatoid Factor Complement C4 Miscellaneous Test Crossmatch 11/22/16 11/23/16 11/23/16 05:00 03:44 04:06 WBC RBC 2.52 L Hgb 7.2 L Hct 21.5 L MCV MCH MCHC RDW 17.1 H Plt Count Lymph % (Auto) [place] % (Auto) 12.4 H Lymph # [place] # 1.4 H Baso # Seg Neutrophils % Seg Neuts % (Manual) Lymphocytes % (Manual) Monocytes % (Manual) Eosinophils % (Manual) Basophils % (Manual) Nucleated RBC % Seg Neutrophils # Seg Neutrophils # Man Lymphocytes # (Manual) Monocytes # (Manual) Eosinophils # (Manual) Basophils # (Manual) PT INR Fibrinogen dRVVT Confirm Interp Factor V Activity POC ABG pH 7.493 H POC ABG pCO2 29.5 L POC ABG pO2 49 L ABG pO2 ABG HCO3 ABG Base Excess ABG Hemoglobin Oxyhemoglobin Sodium 134 L Potassium Chloride 95.9 L Carbon Dioxide 14 L D BUN 51 H Creatinine 2.6 H Glucose POC Glucose Lactic Acid Calcium Ionized Calcium Phosphorus Magnesium Direct Bilirubin AST ALT Alkaline Phosphatase Lactate Dehydrogenase Troponin T C-Reactive Protein Total Protein Albumin Prealbumin Triglycerides Cholesterol LDL Cholesterol Direct HDL Cholesterol 25-OH Vitamin D Total PTH Intact Urine pH Urine WBC (Auto) Urine Creatinine Urine Total Protein Fluid Total Protein Vancomycin Trough Rheumatoid Factor Complement C4 Miscellaneous Test Crossmatch 11/23/16 11/23/16 11/24/16 04:06 11:29 06:39 WBC RBC Hgb Hct MCV MCH MCHC RDW Plt Count Lymph % (Auto) [place] % (Auto) Lymph # [place] # Baso # Seg Neutrophils % Seg Neuts % (Manual) Lymphocytes % (Manual) Monocytes % (Manual) Eosinophils % (Manual) Basophils % (Manual) Nucleated RBC % Seg Neutrophils # Seg Neutrophils # Man Lymphocytes # (Manual) Monocytes # (Manual) Eosinophils # (Manual) Basophils # (Manual) PT INR Fibrinogen dRVVT Confirm Interp Factor V Activity POC ABG pH POC ABG pCO2 POC ABG pO2 ABG pO2 ABG HCO3 ABG Base Excess ABG Hemoglobin Oxyhemoglobin Sodium 136 L Potassium Chloride 95.2 L Carbon Dioxide BUN 60 H Creatinine 2.9 H Glucose POC Glucose 69 L 305 H Lactic Acid Calcium Ionized Calcium Phosphorus Magnesium 1.60 L Direct Bilirubin AST ALT Alkaline Phosphatase Lactate Dehydrogenase Troponin T C-Reactive Protein Total Protein Albumin Prealbumin Triglycerides Cholesterol LDL Cholesterol Direct HDL Cholesterol 25-OH Vitamin D Total PTH Intact Urine pH Urine WBC (Auto) Urine Creatinine Urine Total Protein Fluid Total Protein Vancomycin Trough Rheumatoid Factor Complement C4 Miscellaneous Test Crossmatch 11/24/16 11/24/16 11/24/16 06:43 08:08 08:08 WBC 11.2 H RBC 2.47 L Hgb 6.8 L Hct 20.6 L MCV MCH MCHC RDW 17.0 H Plt Count Lymph % (Auto) [place] % (Auto) 10.3 H Lymph # [place] # 1.2 H Baso # Seg Neutrophils % Seg Neuts % (Manual) Lymphocytes % (Manual) Monocytes % (Manual) Eosinophils % (Manual) Basophils % (Manual) Nucleated RBC % Seg Neutrophils # Seg Neutrophils # Man Lymphocytes # (Manual) Monocytes # (Manual) Eosinophils # (Manual) Basophils # (Manual) PT INR Fibrinogen dRVVT Confirm Interp Factor V Activity POC ABG pH POC ABG pCO2 POC ABG pO2 ABG pO2 ABG HCO3 ABG Base Excess ABG Hemoglobin Oxyhemoglobin Sodium 135 L Potassium Chloride 96.3 L Carbon Dioxide BUN 61 H Creatinine 3.1 H Glucose POC Glucose 62 L Lactic Acid Calcium 8.2 L Ionized Calcium Phosphorus Magnesium Direct Bilirubin AST ALT Alkaline Phosphatase Lactate Dehydrogenase Troponin T C-Reactive Protein Total Protein Albumin Prealbumin Triglycerides Cholesterol LDL Cholesterol Direct HDL Cholesterol 25-OH Vitamin D Total PTH Intact Urine pH Urine WBC (Auto) Urine Creatinine Urine Total Protein Fluid Total Protein Vancomycin Trough Rheumatoid Factor Complement C4 Miscellaneous Test Crossmatch 11/24/16 11/24/16 11/24/16 08:34 11:20 12:41 WBC RBC Hgb Hct MCV MCH MCHC RDW Plt Count Lymph % (Auto) [place] % (Auto) Lymph # [place] # Baso # Seg Neutrophils % Seg Neuts % (Manual) Lymphocytes % (Manual) Monocytes % (Manual) Eosinophils % (Manual) Basophils % (Manual) Nucleated RBC % Seg Neutrophils # Seg Neutrophils # Man Lymphocytes # (Manual) Monocytes # (Manual) Eosinophils # (Manual) Basophils # (Manual) PT INR Fibrinogen dRVVT Confirm Interp Factor V Activity POC ABG pH POC ABG pCO2 POC ABG pO2 ABG pO2 ABG HCO3 ABG Base Excess ABG Hemoglobin Oxyhemoglobin Sodium Potassium Chloride Carbon Dioxide BUN Creatinine Glucose POC Glucose 108 H Lactic Acid Calcium Ionized Calcium Phosphorus Magnesium 1.60 L Direct Bilirubin AST ALT Alkaline Phosphatase Lactate Dehydrogenase Troponin T C-Reactive Protein Total Protein Albumin Prealbumin Triglycerides Cholesterol LDL Cholesterol Direct HDL Cholesterol 25-OH Vitamin D Total PTH Intact Urine pH Urine WBC (Auto) Urine Creatinine Urine Total Protein Fluid Total Protein Vancomycin Trough Rheumatoid Factor Complement C4 Miscellaneous Test Crossmatch See Detail 11/25/16 11/25/16 11/25/16 00:03 04:42 04:42 WBC RBC 3.03 L Hgb 8.6 L Hct 25.3 L MCV MCH MCHC RDW 16.2 H Plt Count Lymph % (Auto) [place] % (Auto) 8.1 H Lymph # [place] # Baso # Seg Neutrophils % 71.3 H Seg Neuts % (Manual) Lymphocytes % (Manual) Monocytes % (Manual) Eosinophils % (Manual) Basophils % (Manual) Nucleated RBC % Seg Neutrophils # Seg Neutrophils # Man Lymphocytes # (Manual) Monocytes # (Manual) Eosinophils # (Manual) Basophils # (Manual) PT INR Fibrinogen dRVVT Confirm Interp Factor V Activity POC ABG pH POC ABG pCO2 POC ABG pO2 ABG pO2 ABG HCO3 ABG Base Excess ABG Hemoglobin Oxyhemoglobin Sodium Potassium Chloride Carbon Dioxide BUN 61 H Creatinine 3.0 H Glucose 102 H POC Glucose 113 H Lactic Acid Calcium 8.2 L Ionized Calcium Phosphorus Magnesium Direct Bilirubin AST ALT Alkaline Phosphatase 142 H Lactate Dehydrogenase Troponin T C-Reactive Protein Total Protein 5.7 L Albumin 1.5 L Prealbumin Triglycerides Cholesterol LDL Cholesterol Direct HDL Cholesterol 25-OH Vitamin D Total PTH Intact Urine pH Urine WBC (Auto) Urine Creatinine Urine Total Protein Fluid Total Protein Vancomycin Trough Rheumatoid Factor Complement C4 Miscellaneous Test Crossmatch 11/25/16 11/25/16 11/25/16 05:12 11:31 14:12 WBC RBC Hgb Hct MCV MCH MCHC RDW Plt Count Lymph % (Auto) [place] % (Auto) Lymph # [place] # Baso # Seg Neutrophils % Seg Neuts % (Manual) Lymphocytes % (Manual) Monocytes % (Manual) Eosinophils % (Manual) Basophils % (Manual) Nucleated RBC % Seg Neutrophils # Seg Neutrophils # Man Lymphocytes # (Manual) Monocytes # (Manual) Eosinophils # (Manual) Basophils # (Manual) PT INR Fibrinogen dRVVT Confirm Interp Factor V Activity POC ABG pH 7.487 H POC ABG pCO2 POC ABG pO2 153 H ABG pO2 ABG HCO3 ABG Base Excess ABG Hemoglobin Oxyhemoglobin Sodium Potassium Chloride Carbon Dioxide BUN Creatinine Glucose POC Glucose 131 H 140 H Lactic Acid Calcium Ionized Calcium Phosphorus Magnesium Direct Bilirubin AST ALT Alkaline Phosphatase Lactate Dehydrogenase Troponin T C-Reactive Protein Total Protein Albumin Prealbumin Triglycerides Cholesterol LDL Cholesterol Direct HDL Cholesterol 25-OH Vitamin D Total PTH Intact Urine pH Urine WBC (Auto) Urine Creatinine Urine Total Protein Fluid Total Protein Vancomycin Trough Rheumatoid Factor Complement C4 Miscellaneous Test Crossmatch 11/25/16 11/26/16 11/26/16 17:23 00:09 05:13 WBC RBC 2.94 L Hgb 8.4 L Hct 24.6 L MCV MCH MCHC RDW 16.4 H Plt Count Lymph % (Auto) [place] % (Auto) 12.3 H Lymph # [place] # 1.1 H Baso # Seg Neutrophils % Seg Neuts % (Manual) Lymphocytes % (Manual) Monocytes % (Manual) Eosinophils % (Manual) Basophils % (Manual) Nucleated RBC % Seg Neutrophils # Seg Neutrophils # Man Lymphocytes # (Manual) Monocytes # (Manual) Eosinophils # (Manual) Basophils # (Manual) PT INR Fibrinogen dRVVT Confirm Interp Factor V Activity POC ABG pH POC ABG pCO2 POC ABG pO2 ABG pO2 ABG HCO3 ABG Base Excess ABG Hemoglobin Oxyhemoglobin Sodium Potassium Chloride Carbon Dioxide BUN Creatinine Glucose POC Glucose 146 H 112 H Lactic Acid Calcium Ionized Calcium Phosphorus Magnesium Direct Bilirubin AST ALT Alkaline Phosphatase Lactate Dehydrogenase Troponin T C-Reactive Protein Total Protein Albumin Prealbumin Triglycerides Cholesterol LDL Cholesterol Direct HDL Cholesterol 25-OH Vitamin D Total PTH Intact Urine pH Urine WBC (Auto) Urine Creatinine Urine Total Protein Fluid Total Protein Vancomycin Trough Rheumatoid Factor Complement C4 Miscellaneous Test Crossmatch 11/26/16 11/26/16 11/26/16 05:13 05:28 11:53 WBC RBC Hgb Hct MCV MCH MCHC RDW Plt Count Lymph % (Auto) [place] % (Auto) Lymph # [place] # Baso # Seg Neutrophils % Seg Neuts % (Manual) Lymphocytes % (Manual) Monocytes % (Manual) Eosinophils % (Manual) Basophils % (Manual) Nucleated RBC % Seg Neutrophils # Seg Neutrophils # Man Lymphocytes # (Manual) Monocytes # (Manual) Eosinophils # (Manual) Basophils # (Manual) PT INR Fibrinogen dRVVT Confirm Interp Factor V Activity POC ABG pH POC ABG pCO2 POC ABG pO2 ABG pO2 ABG HCO3 ABG Base Excess ABG Hemoglobin Oxyhemoglobin Sodium Potassium Chloride 97.8 L Carbon Dioxide BUN 37 H Creatinine 2.0 H Glucose 109 H POC Glucose 117 H 111 H Lactic Acid Calcium 7.9 L Ionized Calcium Phosphorus 1.80 L D Magnesium Direct Bilirubin AST ALT Alkaline Phosphatase Lactate Dehydrogenase Troponin T C-Reactive Protein Total Protein Albumin Prealbumin Triglycerides Cholesterol LDL Cholesterol Direct HDL Cholesterol 25-OH Vitamin D Total PTH Intact Urine pH Urine WBC (Auto) Urine Creatinine Urine Total Protein Fluid Total Protein Vancomycin Trough Rheumatoid Factor Complement C4 Miscellaneous Test Crossmatch 11/26/16 11/27/16 11/27/16 17:14 04:50 06:02 WBC RBC Hgb Hct MCV MCH MCHC RDW Plt Count Lymph % (Auto) [place] % (Auto) Lymph # [place] # Baso # Seg Neutrophils % Seg Neuts % (Manual) Lymphocytes % (Manual) Monocytes % (Manual) Eosinophils % (Manual) Basophils % (Manual) Nucleated RBC % Seg Neutrophils # Seg Neutrophils # Man Lymphocytes # (Manual) Monocytes # (Manual) Eosinophils # (Manual) Basophils # (Manual) PT INR Fibrinogen dRVVT Confirm Interp Factor V Activity POC ABG pH POC ABG pCO2 POC ABG pO2 ABG pO2 75.2 L ABG HCO3 26.4 H ABG Base Excess ABG Hemoglobin 7.6 L Oxyhemoglobin 94.8 L Sodium Potassium Chloride Carbon Dioxide BUN 49 H Creatinine 2.3 H Glucose POC Glucose 115 H Lactic Acid Calcium Ionized Calcium Phosphorus 1.50 L Magnesium Direct Bilirubin AST ALT Alkaline Phosphatase Lactate Dehydrogenase Troponin T C-Reactive Protein Total Protein Albumin Prealbumin Triglycerides Cholesterol LDL Cholesterol Direct HDL Cholesterol 25-OH Vitamin D Total PTH Intact Urine pH Urine WBC (Auto) Urine Creatinine Urine Total Protein Fluid Total Protein Vancomycin Trough Rheumatoid Factor Complement C4 Miscellaneous Test Crossmatch 11/27/16 11/27/16 11/27/16 06:02 11:25 17:25 WBC 11.6 H RBC 2.75 L Hgb 7.6 L Hct 23.4 L MCV MCH MCHC RDW 16.5 H Plt Count Lymph % (Auto) [place] % (Auto) Lymph # [place] # Baso # Seg Neutrophils % Seg Neuts % (Manual) Lymphocytes % (Manual) Monocytes % (Manual) Eosinophils % (Manual) Basophils % (Manual) Nucleated RBC % Seg Neutrophils # Seg Neutrophils # Man Lymphocytes # (Manual) Monocytes # (Manual) Eosinophils # (Manual) Basophils # (Manual) PT INR Fibrinogen dRVVT Confirm Interp Factor V Activity POC ABG pH POC ABG pCO2 POC ABG pO2 ABG pO2 ABG HCO3 ABG Base Excess ABG Hemoglobin Oxyhemoglobin Sodium Potassium Chloride Carbon Dioxide BUN Creatinine Glucose POC Glucose 114 H 126 H Lactic Acid Calcium Ionized Calcium Phosphorus Magnesium Direct Bilirubin AST ALT Alkaline Phosphatase Lactate Dehydrogenase Troponin T C-Reactive Protein Total Protein Albumin Prealbumin Triglycerides Cholesterol LDL Cholesterol Direct HDL Cholesterol 25-OH Vitamin D Total PTH Intact Urine pH Urine WBC (Auto) Urine Creatinine Urine Total Protein Fluid Total Protein Vancomycin Trough Rheumatoid Factor Complement C4 Miscellaneous Test Crossmatch 11/28/16 11/28/16 11/28/16 04:45 05:33 05:44 WBC RBC Hgb Hct MCV MCH MCHC RDW Plt Count Lymph % (Auto) [place] % (Auto) Lymph # [place] # Baso # Seg Neutrophils % Seg Neuts % (Manual) Lymphocytes % (Manual) Monocytes % (Manual) Eosinophils % (Manual) Basophils % (Manual) Nucleated RBC % Seg Neutrophils # Seg Neutrophils # Man Lymphocytes # (Manual) Monocytes # (Manual) Eosinophils # (Manual) Basophils # (Manual) PT INR Fibrinogen dRVVT Confirm Interp Factor V Activity POC ABG pH POC ABG pCO2 POC ABG pO2 ABG pO2 99.3 H ABG HCO3 ABG Base Excess ABG Hemoglobin 8.3 L Oxyhemoglobin Sodium Potassium Chloride Carbon Dioxide BUN 63 H Creatinine 2.4 H Glucose 102 H POC Glucose 108 H Lactic Acid Calcium Ionized Calcium Phosphorus 1.80 L Magnesium Direct Bilirubin AST ALT Alkaline Phosphatase Lactate Dehydrogenase Troponin T C-Reactive Protein Total Protein Albumin Prealbumin Triglycerides Cholesterol LDL Cholesterol Direct HDL Cholesterol 25-OH Vitamin D Total PTH Intact Urine pH Urine WBC (Auto) Urine Creatinine Urine Total Protein Fluid Total Protein Vancomycin Trough Rheumatoid Factor Complement C4 Miscellaneous Test Crossmatch 11/28/16 11/28/16 11/28/16 12:31 16:09 23:46 WBC RBC Hgb Hct MCV MCH MCHC RDW Plt Count Lymph % (Auto) [place] % (Auto) Lymph # [place] # Baso # Seg Neutrophils % Seg Neuts % (Manual) Lymphocytes % (Manual) Monocytes % (Manual) Eosinophils % (Manual) Basophils % (Manual) Nucleated RBC % Seg Neutrophils # Seg Neutrophils # Man Lymphocytes # (Manual) Monocytes # (Manual) Eosinophils # (Manual) Basophils # (Manual) PT INR Fibrinogen dRVVT Confirm Interp Factor V Activity POC ABG pH POC ABG pCO2 POC ABG pO2 ABG pO2 ABG HCO3 ABG Base Excess ABG Hemoglobin Oxyhemoglobin Sodium Potassium Chloride Carbon Dioxide BUN Creatinine Glucose POC Glucose 126 H 111 H 119 H Lactic Acid Calcium Ionized Calcium Phosphorus Magnesium Direct Bilirubin AST ALT Alkaline Phosphatase Lactate Dehydrogenase Troponin T C-Reactive Protein Total Protein Albumin Prealbumin Triglycerides Cholesterol LDL Cholesterol Direct HDL Cholesterol 25-OH Vitamin D Total PTH Intact Urine pH Urine WBC (Auto) Urine Creatinine Urine Total Protein Fluid Total Protein Vancomycin Trough Rheumatoid Factor Complement C4 Miscellaneous Test Crossmatch 11/29/16 11/29/16 11/29/16 03:33 04:52 05:10 WBC RBC Hgb Hct MCV MCH MCHC RDW Plt Count Lymph % (Auto) [place] % (Auto) Lymph # [place] # Baso # Seg Neutrophils % Seg Neuts % (Manual) Lymphocytes % (Manual) Monocytes % (Manual) Eosinophils % (Manual) Basophils % (Manual) Nucleated RBC % Seg Neutrophils # Seg Neutrophils # Man Lymphocytes # (Manual) Monocytes # (Manual) Eosinophils # (Manual) Basophils # (Manual) PT INR Fibrinogen dRVVT Confirm Interp Factor V Activity POC ABG pH POC ABG pCO2 POC ABG pO2 ABG pO2 ABG HCO3 ABG Base Excess ABG Hemoglobin 7.0 L Oxyhemoglobin 94.9 L Sodium Potassium Chloride Carbon Dioxide BUN 73 H Creatinine 2.7 H Glucose POC Glucose 108 H Lactic Acid Calcium Ionized Calcium Phosphorus Magnesium Direct Bilirubin AST ALT Alkaline Phosphatase Lactate Dehydrogenase Troponin T C-Reactive Protein Total Protein Albumin Prealbumin Triglycerides Cholesterol LDL Cholesterol Direct HDL Cholesterol 25-OH Vitamin D Total PTH Intact Urine pH Urine WBC (Auto) Urine Creatinine Urine Total Protein Fluid Total Protein Vancomycin Trough Rheumatoid Factor Complement C4 Miscellaneous Test Crossmatch 11/29/16 11/29/16 11/29/16 12:16 18:05 23:46 WBC RBC Hgb Hct MCV MCH MCHC RDW Plt Count Lymph % (Auto) [place] % (Auto) Lymph # [place] # Baso # Seg Neutrophils % Seg Neuts % (Manual) Lymphocytes % (Manual) Monocytes % (Manual) Eosinophils % (Manual) Basophils % (Manual) Nucleated RBC % Seg Neutrophils # Seg Neutrophils # Man Lymphocytes # (Manual) Monocytes # (Manual) Eosinophils # (Manual) Basophils # (Manual) PT INR Fibrinogen dRVVT Confirm Interp Factor V Activity POC ABG pH POC ABG pCO2 POC ABG pO2 ABG pO2 ABG HCO3 ABG Base Excess ABG Hemoglobin Oxyhemoglobin Sodium Potassium Chloride Carbon Dioxide BUN Creatinine Glucose POC Glucose 133 H 146 H 141 H Lactic Acid Calcium Ionized Calcium Phosphorus Magnesium Direct Bilirubin AST ALT Alkaline Phosphatase Lactate Dehydrogenase Troponin T C-Reactive Protein Total Protein Albumin Prealbumin Triglycerides Cholesterol LDL Cholesterol Direct HDL Cholesterol 25-OH Vitamin D Total PTH Intact Urine pH Urine WBC (Auto) Urine Creatinine Urine Total Protein Fluid Total Protein Vancomycin Trough Rheumatoid Factor Complement C4 Miscellaneous Test Crossmatch 11/30/16 11/30/16 11/30/16 04:17 04:17 04:32 WBC 12.0 H RBC 2.80 L Hgb 7.8 L Hct 23.6 L MCV MCH MCHC RDW 16.6 H Plt Count Lymph % (Auto) [place] % (Auto) 11.3 H Lymph # [place] # 1.4 H Baso # Seg Neutrophils % Seg Neuts % (Manual) Lymphocytes % (Manual) Monocytes % (Manual) Eosinophils % (Manual) Basophils % (Manual) Nucleated RBC % Seg Neutrophils # 8.2 H Seg Neutrophils # Man Lymphocytes # (Manual) Monocytes # (Manual) Eosinophils # (Manual) Basophils # (Manual) PT INR Fibrinogen dRVVT Confirm Interp Factor V Activity POC ABG pH POC ABG pCO2 POC ABG pO2 ABG pO2 ABG HCO3 ABG Base Excess ABG Hemoglobin Oxyhemoglobin Sodium 169 H* D Potassium 5.1 H Chloride 121.5 H Carbon Dioxide BUN 34 H Creatinine 1.3 H D Glucose 133 H POC Glucose 131 H Lactic Acid Calcium 10.3 H Ionized Calcium Phosphorus Magnesium Direct Bilirubin AST ALT Alkaline Phosphatase Lactate Dehydrogenase Troponin T C-Reactive Protein Total Protein Albumin Prealbumin Triglycerides Cholesterol LDL Cholesterol Direct HDL Cholesterol 25-OH Vitamin D Total PTH Intact Urine pH Urine WBC (Auto) Urine Creatinine Urine Total Protein Fluid Total Protein Vancomycin Trough Rheumatoid Factor Complement C4 Miscellaneous Test Crossmatch 11/30/16 11/30/16 11/30/16 05:45 11:10 17:26 WBC RBC Hgb Hct MCV MCH MCHC RDW Plt Count Lymph % (Auto) [place] % (Auto) Lymph # [place] # Baso # Seg Neutrophils % Seg Neuts % (Manual) Lymphocytes % (Manual) Monocytes % (Manual) Eosinophils % (Manual) Basophils % (Manual) Nucleated RBC % Seg Neutrophils # Seg Neutrophils # Man Lymphocytes # (Manual) Monocytes # (Manual) Eosinophils # (Manual) Basophils # (Manual) PT INR Fibrinogen dRVVT Confirm Interp Factor V Activity POC ABG pH POC ABG pCO2 POC ABG pO2 ABG pO2 ABG HCO3 ABG Base Excess ABG Hemoglobin Oxyhemoglobin Sodium Potassium Chloride Carbon Dioxide BUN 45 H Creatinine 1.6 H Glucose 131 H POC Glucose 146 H 134 H Lactic Acid Calcium Ionized Calcium Phosphorus Magnesium Direct Bilirubin AST ALT Alkaline Phosphatase Lactate Dehydrogenase Troponin T C-Reactive Protein Total Protein Albumin Prealbumin Triglycerides Cholesterol LDL Cholesterol Direct HDL Cholesterol 25-OH Vitamin D Total PTH Intact Urine pH Urine WBC (Auto) Urine Creatinine Urine Total Protein Fluid Total Protein Vancomycin Trough Rheumatoid Factor Complement C4 Miscellaneous Test Crossmatch 11/30/16 12/01/16 12/01/16 23:35 00:06 03:35 WBC RBC Hgb Hct MCV MCH MCHC RDW Plt Count Lymph % (Auto) [place] % (Auto) Lymph # [place] # Baso # Seg Neutrophils % Seg Neuts % (Manual) Lymphocytes % (Manual) Monocytes % (Manual) Eosinophils % (Manual) Basophils % (Manual) Nucleated RBC % Seg Neutrophils # Seg Neutrophils # Man Lymphocytes # (Manual) Monocytes # (Manual) Eosinophils # (Manual) Basophils # (Manual) PT INR Fibrinogen dRVVT Confirm Interp Factor V Activity POC ABG pH POC ABG pCO2 POC ABG pO2 ABG pO2 ABG HCO3 ABG Base Excess ABG Hemoglobin 6.9 L Oxyhemoglobin Sodium Potassium Chloride Carbon Dioxide BUN 58 H Creatinine 1.8 H Glucose 146 H POC Glucose 151 H Lactic Acid Calcium Ionized Calcium Phosphorus Magnesium Direct Bilirubin AST ALT Alkaline Phosphatase Lactate Dehydrogenase Troponin T C-Reactive Protein Total Protein Albumin Prealbumin Triglycerides Cholesterol LDL Cholesterol Direct HDL Cholesterol 25-OH Vitamin D Total PTH Intact Urine pH Urine WBC (Auto) Urine Creatinine Urine Total Protein Fluid Total Protein Vancomycin Trough Rheumatoid Factor Complement C4 Miscellaneous Test Crossmatch 12/01/16 12/01/16 12/01/16 03:35 05:47 11:52 WBC 12.3 H RBC 2.82 L Hgb 7.8 L Hct 23.7 L MCV MCH MCHC RDW 16.7 H Plt Count Lymph % (Auto) [place] % (Auto) 9.8 H Lymph # [place] # 1.2 H Baso # Seg Neutrophils % Seg Neuts % (Manual) Lymphocytes % (Manual) Monocytes % (Manual) Eosinophils % (Manual) Basophils % (Manual) Nucleated RBC % Seg Neutrophils # 8.4 H Seg Neutrophils # Man Lymphocytes # (Manual) Monocytes # (Manual) Eosinophils # (Manual) Basophils # (Manual) PT INR Fibrinogen dRVVT Confirm Interp Factor V Activity POC ABG pH POC ABG pCO2 POC ABG pO2 ABG pO2 ABG HCO3 ABG Base Excess ABG Hemoglobin Oxyhemoglobin Sodium Potassium Chloride Carbon Dioxide BUN Creatinine Glucose POC Glucose 152 H 152 H Lactic Acid Calcium Ionized Calcium Phosphorus Magnesium Direct Bilirubin AST ALT Alkaline Phosphatase Lactate Dehydrogenase Troponin T C-Reactive Protein Total Protein Albumin Prealbumin Triglycerides Cholesterol LDL Cholesterol Direct HDL Cholesterol 25-OH Vitamin D Total PTH Intact Urine pH Urine WBC (Auto) Urine Creatinine Urine Total Protein Fluid Total Protein Vancomycin Trough Rheumatoid Factor Complement C4 Miscellaneous Test Crossmatch 12/01/16 12/01/16 12/02/16 17:40 23:41 05:00 WBC RBC Hgb Hct MCV MCH MCHC RDW Plt Count Lymph % (Auto) [place] % (Auto) Lymph # [place] # Baso # Seg Neutrophils % Seg Neuts % (Manual) Lymphocytes % (Manual) Monocytes % (Manual) Eosinophils % (Manual) Basophils % (Manual) Nucleated RBC % Seg Neutrophils # Seg Neutrophils # Man Lymphocytes # (Manual) Monocytes # (Manual) Eosinophils # (Manual) Basophils # (Manual) PT INR Fibrinogen dRVVT Confirm Interp Factor V Activity POC ABG pH POC ABG pCO2 POC ABG pO2 ABG pO2 ABG HCO3 ABG Base Excess ABG Hemoglobin Oxyhemoglobin Sodium Potassium Chloride Carbon Dioxide BUN 45 H Creatinine Glucose 115 H POC Glucose 140 H 144 H Lactic Acid Calcium Ionized Calcium Phosphorus Magnesium Direct Bilirubin AST ALT Alkaline Phosphatase Lactate Dehydrogenase Troponin T C-Reactive Protein Total Protein Albumin Prealbumin Triglycerides Cholesterol LDL Cholesterol Direct HDL Cholesterol 25-OH Vitamin D Total PTH Intact Urine pH Urine WBC (Auto) Urine Creatinine Urine Total Protein Fluid Total Protein Vancomycin Trough Rheumatoid Factor Complement C4 Miscellaneous Test Crossmatch 12/02/16 12/02/16 12/02/16 05:31 11:20 17:38 WBC RBC Hgb Hct MCV MCH MCHC RDW Plt Count Lymph % (Auto) [place] % (Auto) Lymph # [place] # Baso # Seg Neutrophils % Seg Neuts % (Manual) Lymphocytes % (Manual) Monocytes % (Manual) Eosinophils % (Manual) Basophils % (Manual) Nucleated RBC % Seg Neutrophils # Seg Neutrophils # Man Lymphocytes # (Manual) Monocytes # (Manual) Eosinophils # (Manual) Basophils # (Manual) PT INR Fibrinogen dRVVT Confirm Interp Factor V Activity POC ABG pH POC ABG pCO2 POC ABG pO2 ABG pO2 ABG HCO3 ABG Base Excess ABG Hemoglobin Oxyhemoglobin Sodium Potassium Chloride Carbon Dioxide BUN Creatinine Glucose POC Glucose 136 H 177 H 139 H Lactic Acid Calcium Ionized Calcium Phosphorus Magnesium Direct Bilirubin AST ALT Alkaline Phosphatase Lactate Dehydrogenase Troponin T C-Reactive Protein Total Protein Albumin Prealbumin Triglycerides Cholesterol LDL Cholesterol Direct HDL Cholesterol 25-OH Vitamin D Total PTH Intact Urine pH Urine WBC (Auto) Urine Creatinine Urine Total Protein Fluid Total Protein Vancomycin Trough Rheumatoid Factor Complement C4 Miscellaneous Test Crossmatch 12/02/16 12/03/16 12/03/16 23:43 04:00 04:00 WBC 20.4 H RBC 2.74 L Hgb 7.4 L Hct 23.6 L MCV MCH 27 L MCHC RDW 17.1 H Plt Count Lymph % (Auto) [place] % (Auto) Lymph # [place] # Baso # Seg Neutrophils % Seg Neuts % (Manual) 31.0 L Lymphocytes % (Manual) Monocytes % (Manual) Eosinophils % (Manual) Basophils % (Manual) Nucleated RBC % Seg Neutrophils # Seg Neutrophils # Man Lymphocytes # (Manual) Monocytes # (Manual) Eosinophils # (Manual) Basophils # (Manual) PT INR Fibrinogen dRVVT Confirm Interp Factor V Activity POC ABG pH POC ABG pCO2 POC ABG pO2 ABG pO2 ABG HCO3 ABG Base Excess ABG Hemoglobin Oxyhemoglobin Sodium Potassium Chloride Carbon Dioxide BUN 61 H Creatinine 1.6 H Glucose 119 H POC Glucose 158 H Lactic Acid Calcium Ionized Calcium Phosphorus Magnesium Direct Bilirubin AST ALT Alkaline Phosphatase Lactate Dehydrogenase Troponin T C-Reactive Protein Total Protein Albumin Prealbumin Triglycerides Cholesterol LDL Cholesterol Direct HDL Cholesterol 25-OH Vitamin D Total PTH Intact Urine pH Urine WBC (Auto) Urine Creatinine Urine Total Protein Fluid Total Protein Vancomycin Trough Rheumatoid Factor Complement C4 Miscellaneous Test Crossmatch 12/03/16 12/03/16 12/03/16 05:02 12:11 18:16 WBC RBC Hgb Hct MCV MCH MCHC RDW Plt Count Lymph % (Auto) [place] % (Auto) Lymph # [place] # Baso # Seg Neutrophils % Seg Neuts % (Manual) Lymphocytes % (Manual) Monocytes % (Manual) Eosinophils % (Manual) Basophils % (Manual) Nucleated RBC % Seg Neutrophils # Seg Neutrophils # Man Lymphocytes # (Manual) Monocytes # (Manual) Eosinophils # (Manual) Basophils # (Manual) PT INR Fibrinogen dRVVT Confirm Interp Factor V Activity POC ABG pH POC ABG pCO2 POC ABG pO2 ABG pO2 ABG HCO3 ABG Base Excess ABG Hemoglobin Oxyhemoglobin Sodium Potassium Chloride Carbon Dioxide BUN Creatinine Glucose POC Glucose 146 H 157 H 124 H Lactic Acid Calcium Ionized Calcium Phosphorus Magnesium Direct Bilirubin AST ALT Alkaline Phosphatase Lactate Dehydrogenase Troponin T C-Reactive Protein Total Protein Albumin Prealbumin Triglycerides Cholesterol LDL Cholesterol Direct HDL Cholesterol 25-OH Vitamin D Total PTH Intact Urine pH Urine WBC (Auto) Urine Creatinine Urine Total Protein Fluid Total Protein Vancomycin Trough Rheumatoid Factor Complement C4 Miscellaneous Test Crossmatch 12/03/16 12/04/16 12/04/16 23:41 04:00 04:45 WBC RBC Hgb Hct MCV MCH MCHC RDW Plt Count Lymph % (Auto) [place] % (Auto) Lymph # [place] # Baso # Seg Neutrophils % Seg Neuts % (Manual) Lymphocytes % (Manual) Monocytes % (Manual) Eosinophils % (Manual) Basophils % (Manual) Nucleated RBC % Seg Neutrophils # Seg Neutrophils # Man Lymphocytes # (Manual) Monocytes # (Manual) Eosinophils # (Manual) Basophils # (Manual) PT INR Fibrinogen dRVVT Confirm Interp Factor V Activity POC ABG pH POC ABG pCO2 POC ABG pO2 ABG pO2 ABG HCO3 ABG Base Excess ABG Hemoglobin Oxyhemoglobin Sodium Potassium Chloride Carbon Dioxide BUN 76 H Creatinine 1.6 H Glucose POC Glucose 130 H 136 H Lactic Acid Calcium Ionized Calcium Phosphorus Magnesium Direct Bilirubin AST ALT Alkaline Phosphatase 155 H Lactate Dehydrogenase Troponin T C-Reactive Protein Total Protein 5.5 L Albumin 1.5 L Prealbumin Triglycerides Cholesterol LDL Cholesterol Direct HDL Cholesterol 25-OH Vitamin D Total PTH Intact Urine pH Urine WBC (Auto) Urine Creatinine Urine Total Protein Fluid Total Protein Vancomycin Trough Rheumatoid Factor Complement C4 Miscellaneous Test Crossmatch 12/04/16 12/04/16 12/05/16 12:08 17:23 00:10 WBC RBC Hgb Hct MCV MCH MCHC RDW Plt Count Lymph % (Auto) [place] % (Auto) Lymph # [place] # Baso # Seg Neutrophils % Seg Neuts % (Manual) Lymphocytes % (Manual) Monocytes % (Manual) Eosinophils % (Manual) Basophils % (Manual) Nucleated RBC % Seg Neutrophils # Seg Neutrophils # Man Lymphocytes # (Manual) Monocytes # (Manual) Eosinophils # (Manual) Basophils # (Manual) PT INR Fibrinogen dRVVT Confirm Interp Factor V Activity POC ABG pH POC ABG pCO2 POC ABG pO2 ABG pO2 ABG HCO3 ABG Base Excess ABG Hemoglobin Oxyhemoglobin Sodium Potassium Chloride Carbon Dioxide BUN Creatinine Glucose POC Glucose 114 H 129 H 124 H Lactic Acid Calcium Ionized Calcium Phosphorus Magnesium Direct Bilirubin AST ALT Alkaline Phosphatase Lactate Dehydrogenase Troponin T C-Reactive Protein Total Protein Albumin Prealbumin Triglycerides Cholesterol LDL Cholesterol Direct HDL Cholesterol 25-OH Vitamin D Total PTH Intact Urine pH Urine WBC (Auto) Urine Creatinine Urine Total Protein Fluid Total Protein Vancomycin Trough Rheumatoid Factor Complement C4 Miscellaneous Test Crossmatch 12/05/16 12/05/16 12/05/16 05:00 05:00 05:18 WBC RBC Hgb Hct MCV MCH MCHC RDW Plt Count Lymph % (Auto) [place] % (Auto) Lymph # [place] # Baso # Seg Neutrophils % Seg Neuts % (Manual) Lymphocytes % (Manual) Monocytes % (Manual) Eosinophils % (Manual) Basophils % (Manual) Nucleated RBC % Seg Neutrophils # Seg Neutrophils # Man Lymphocytes # (Manual) Monocytes # (Manual) Eosinophils # (Manual) Basophils # (Manual) PT INR Fibrinogen dRVVT Confirm Interp Factor V Activity POC ABG pH POC ABG pCO2 POC ABG pO2 ABG pO2 ABG HCO3 ABG Base Excess ABG Hemoglobin Oxyhemoglobin Sodium Potassium Chloride Carbon Dioxide 21 L BUN 85 H Creatinine 1.9 H Glucose 131 H POC Glucose 154 H Lactic Acid Calcium Ionized Calcium Phosphorus Magnesium Direct Bilirubin AST ALT Alkaline Phosphatase Lactate Dehydrogenase Troponin T C-Reactive Protein 19.30 H Total Protein Albumin Prealbumin Triglycerides Cholesterol LDL Cholesterol Direct HDL Cholesterol 25-OH Vitamin D Total PTH Intact Urine pH Urine WBC (Auto) Urine Creatinine Urine Total Protein Fluid Total Protein Vancomycin Trough Rheumatoid Factor Complement C4 Miscellaneous Test Crossmatch 12/05/16 12/05/16 12/05/16 11:43 17:46 23:25 WBC RBC Hgb Hct MCV MCH MCHC RDW Plt Count Lymph % (Auto) [place] % (Auto) Lymph # [place] # Baso # Seg Neutrophils % Seg Neuts % (Manual) Lymphocytes % (Manual) Monocytes % (Manual) Eosinophils % (Manual) Basophils % (Manual) Nucleated RBC % Seg Neutrophils # Seg Neutrophils # Man Lymphocytes # (Manual) Monocytes # (Manual) Eosinophils # (Manual) Basophils # (Manual) PT INR Fibrinogen dRVVT Confirm Interp Factor V Activity POC ABG pH POC ABG pCO2 POC ABG pO2 ABG pO2 ABG HCO3 ABG Base Excess ABG Hemoglobin Oxyhemoglobin Sodium Potassium Chloride Carbon Dioxide BUN Creatinine Glucose POC Glucose 117 H 113 H 111 H Lactic Acid Calcium Ionized Calcium Phosphorus Magnesium Direct Bilirubin AST ALT Alkaline Phosphatase Lactate Dehydrogenase Troponin T C-Reactive Protein Total Protein Albumin Prealbumin Triglycerides Cholesterol LDL Cholesterol Direct HDL Cholesterol 25-OH Vitamin D Total PTH Intact Urine pH Urine WBC (Auto) Urine Creatinine Urine Total Protein Fluid Total Protein Vancomycin Trough Rheumatoid Factor Complement C4 Miscellaneous Test Crossmatch 12/05/16 12/06/16 12/06/16 Unknown 04:58 06:00 WBC RBC Hgb Hct MCV MCH MCHC RDW Plt Count Lymph % (Auto) [place] % (Auto) Lymph # [place] # Baso # Seg Neutrophils % Seg Neuts % (Manual) Lymphocytes % (Manual) Monocytes % (Manual) Eosinophils % (Manual) Basophils % (Manual) Nucleated RBC % Seg Neutrophils # Seg Neutrophils # Man Lymphocytes # (Manual) Monocytes # (Manual) Eosinophils # (Manual) Basophils # (Manual) PT INR Fibrinogen dRVVT Confirm Interp Factor V Activity POC ABG pH POC ABG pCO2 POC ABG pO2 ABG pO2 75.2 L ABG HCO3 ABG Base Excess -3.4 L ABG Hemoglobin 7.4 L Oxyhemoglobin 94.5 L Sodium Potassium Chloride Carbon Dioxide 20 L BUN 99 H Creatinine 2.1 H Glucose 126 H POC Glucose 145 H Lactic Acid Calcium Ionized Calcium Phosphorus 4.80 H Magnesium Direct Bilirubin AST ALT Alkaline Phosphatase Lactate Dehydrogenase Troponin T C-Reactive Protein Total Protein Albumin Prealbumin Triglycerides Cholesterol LDL Cholesterol Direct HDL Cholesterol 25-OH Vitamin D Total PTH Intact Urine pH Urine WBC (Auto) Urine Creatinine Urine Total Protein Fluid Total Protein Vancomycin Trough Rheumatoid Factor Complement C4 Miscellaneous Test Crossmatch 12/06/16 12/06/16 12/06/16 06:46 11:54 17:55 WBC RBC Hgb 8.3 L Hct 26.4 L MCV MCH MCHC RDW Plt Count Lymph % (Auto) [place] % (Auto) Lymph # [place] # Baso # Seg Neutrophils % Seg Neuts % (Manual) Lymphocytes % (Manual) Monocytes % (Manual) Eosinophils % (Manual) Basophils % (Manual) Nucleated RBC % Seg Neutrophils # Seg Neutrophils # Man Lymphocytes # (Manual) Monocytes # (Manual) Eosinophils # (Manual) Basophils # (Manual) PT INR Fibrinogen dRVVT Confirm Interp Factor V Activity POC ABG pH POC ABG pCO2 POC ABG pO2 ABG pO2 ABG HCO3 ABG Base Excess ABG Hemoglobin Oxyhemoglobin Sodium Potassium Chloride Carbon Dioxide BUN Creatinine Glucose POC Glucose 126 H 157 H Lactic Acid Calcium Ionized Calcium Phosphorus Magnesium Direct Bilirubin AST ALT Alkaline Phosphatase Lactate Dehydrogenase Troponin T C-Reactive Protein Total Protein Albumin Prealbumin Triglycerides Cholesterol LDL Cholesterol Direct HDL Cholesterol 25-OH Vitamin D Total PTH Intact Urine pH Urine WBC (Auto) Urine Creatinine Urine Total Protein Fluid Total Protein Vancomycin Trough Rheumatoid Factor Complement C4 Miscellaneous Test Crossmatch 12/06/16 12/07/16 12/07/16 23:59 05:34 06:30 WBC RBC Hgb Hct MCV MCH MCHC RDW Plt Count Lymph % (Auto) [place] % (Auto) Lymph # [place] # Baso # Seg Neutrophils % Seg Neuts % (Manual) Lymphocytes % (Manual) Monocytes % (Manual) Eosinophils % (Manual) Basophils % (Manual) Nucleated RBC % Seg Neutrophils # Seg Neutrophils # Man Lymphocytes # (Manual) Monocytes # (Manual) Eosinophils # (Manual) Basophils # (Manual) PT INR Fibrinogen dRVVT Confirm Interp Factor V Activity POC ABG pH POC ABG pCO2 POC ABG pO2 ABG pO2 ABG HCO3 ABG Base Excess ABG Hemoglobin Oxyhemoglobin Sodium Potassium Chloride Carbon Dioxide BUN 67 H Creatinine 1.4 H Glucose 126 H POC Glucose 129 H 129 H Lactic Acid Calcium Ionized Calcium Phosphorus Magnesium Direct Bilirubin AST ALT Alkaline Phosphatase Lactate Dehydrogenase Troponin T C-Reactive Protein Total Protein Albumin Prealbumin Triglycerides Cholesterol LDL Cholesterol Direct HDL Cholesterol 25-OH Vitamin D Total PTH Intact Urine pH Urine WBC (Auto) Urine Creatinine Urine Total Protein Fluid Total Protein Vancomycin Trough Rheumatoid Factor Complement C4 Miscellaneous Test Crossmatch 12/07/16 12/07/16 12/07/16 06:30 08:00 09:45 WBC 18.8 H RBC 2.52 L Hgb 6.9 L 6.8 L Hct 21.2 L 21.1 L MCV MCH 27 L MCHC RDW 18.0 H Plt Count Lymph % (Auto) [place] % (Auto) 9.9 H Lymph # [place] # 1.9 H Baso # Seg Neutrophils % 71.8 H Seg Neuts % (Manual) Lymphocytes % (Manual) Monocytes % (Manual) Eosinophils % (Manual) Basophils % (Manual) Nucleated RBC % Seg Neutrophils # 13.5 H Seg Neutrophils # Man Lymphocytes # (Manual) Monocytes # (Manual) Eosinophils # (Manual) Basophils # (Manual) PT INR Fibrinogen dRVVT Confirm Interp Factor V Activity POC ABG pH POC ABG pCO2 POC ABG pO2 ABG pO2 ABG HCO3 ABG Base Excess ABG Hemoglobin Oxyhemoglobin Sodium Potassium Chloride Carbon Dioxide BUN Creatinine Glucose POC Glucose Lactic Acid Calcium Ionized Calcium Phosphorus Magnesium Direct Bilirubin AST ALT Alkaline Phosphatase Lactate Dehydrogenase Troponin T C-Reactive Protein Total Protein Albumin Prealbumin Triglycerides Cholesterol LDL Cholesterol Direct HDL Cholesterol 25-OH Vitamin D Total PTH Intact Urine pH Urine WBC (Auto) Urine Creatinine Urine Total Protein Fluid Total Protein Vancomycin Trough Rheumatoid Factor Complement C4 Miscellaneous Test Crossmatch See Detail 12/07/16 12/07/16 12/07/16 11:44 18:19 23:59 WBC RBC Hgb Hct MCV MCH MCHC RDW Plt Count Lymph % (Auto) [place] % (Auto) Lymph # [place] # Baso # Seg Neutrophils % Seg Neuts % (Manual) Lymphocytes % (Manual) Monocytes % (Manual) Eosinophils % (Manual) Basophils % (Manual) Nucleated RBC % Seg Neutrophils # Seg Neutrophils # Man Lymphocytes # (Manual) Monocytes # (Manual) Eosinophils # (Manual) Basophils # (Manual) PT INR Fibrinogen dRVVT Confirm Interp Factor V Activity POC ABG pH POC ABG pCO2 POC ABG pO2 ABG pO2 ABG HCO3 ABG Base Excess ABG Hemoglobin Oxyhemoglobin Sodium Potassium Chloride Carbon Dioxide BUN Creatinine Glucose POC Glucose 137 H 138 H 133 H Lactic Acid Calcium Ionized Calcium Phosphorus Magnesium Direct Bilirubin AST ALT Alkaline Phosphatase Lactate Dehydrogenase Troponin T C-Reactive Protein Total Protein Albumin Prealbumin Triglycerides Cholesterol LDL Cholesterol Direct HDL Cholesterol 25-OH Vitamin D Total PTH Intact Urine pH Urine WBC (Auto) Urine Creatinine Urine Total Protein Fluid Total Protein Vancomycin Trough Rheumatoid Factor Complement C4 Miscellaneous Test Crossmatch 12/08/16 12/08/16 12/08/16 05:25 05:30 05:30 WBC 23.8 H RBC 2.88 L Hgb 8.1 L Hct 24.3 L MCV MCH MCHC RDW 16.7 H Plt Count Lymph % (Auto) [place] % (Auto) Lymph # [place] # Baso # Seg Neutrophils % Seg Neuts % (Manual) 76.0 H Lymphocytes % (Manual) 9.0 L Monocytes % (Manual) 9.0 H Eosinophils % (Manual) Basophils % (Manual) Nucleated RBC % Seg Neutrophils # Seg Neutrophils # Man 18.1 H Lymphocytes # (Manual) Monocytes # (Manual) 2.1 H Eosinophils # (Manual) Basophils # (Manual) PT INR Fibrinogen dRVVT Confirm Interp Factor V Activity POC ABG pH POC ABG pCO2 POC ABG pO2 ABG pO2 ABG HCO3 ABG Base Excess ABG Hemoglobin Oxyhemoglobin Sodium Potassium Chloride Carbon Dioxide 21 L BUN 76 H Creatinine 1.6 H Glucose 133 H POC Glucose 177 H Lactic Acid Calcium Ionized Calcium Phosphorus Magnesium Direct Bilirubin AST ALT Alkaline Phosphatase Lactate Dehydrogenase Troponin T C-Reactive Protein Total Protein Albumin Prealbumin Triglycerides Cholesterol LDL Cholesterol Direct HDL Cholesterol 25-OH Vitamin D Total PTH Intact Urine pH Urine WBC (Auto) Urine Creatinine Urine Total Protein Fluid Total Protein Vancomycin Trough Rheumatoid Factor Complement C4 Miscellaneous Test Crossmatch 12/08/16 12/08/16 12/09/16 11:45 18:00 00:00 WBC RBC Hgb Hct MCV MCH MCHC RDW Plt Count Lymph % (Auto) [place] % (Auto) Lymph # [place] # Baso # Seg Neutrophils % Seg Neuts % (Manual) Lymphocytes % (Manual) Monocytes % (Manual) Eosinophils % (Manual) Basophils % (Manual) Nucleated RBC % Seg Neutrophils # Seg Neutrophils # Man Lymphocytes # (Manual) Monocytes # (Manual) Eosinophils # (Manual) Basophils # (Manual) PT INR Fibrinogen dRVVT Confirm Interp Factor V Activity POC ABG pH POC ABG pCO2 POC ABG pO2 ABG pO2 ABG HCO3 ABG Base Excess ABG Hemoglobin Oxyhemoglobin Sodium Potassium Chloride Carbon Dioxide BUN Creatinine Glucose POC Glucose 163 H 123 H 137 H Lactic Acid Calcium Ionized Calcium Phosphorus Magnesium Direct Bilirubin AST ALT Alkaline Phosphatase Lactate Dehydrogenase Troponin T C-Reactive Protein Total Protein Albumin Prealbumin Triglycerides Cholesterol LDL Cholesterol Direct HDL Cholesterol 25-OH Vitamin D Total PTH Intact Urine pH Urine WBC (Auto) Urine Creatinine Urine Total Protein Fluid Total Protein Vancomycin Trough Rheumatoid Factor Complement C4 Miscellaneous Test Crossmatch 12/09/16 12/09/16 12/09/16 05:34 06:00 06:00 WBC 15.5 H RBC 2.87 L Hgb 8.0 L Hct 24.2 L MCV MCH MCHC RDW 17.2 H Plt Count Lymph % (Auto) [place] % (Auto) 11.6 H Lymph # [place] # 1.8 H Baso # Seg Neutrophils % 70.8 H Seg Neuts % (Manual) Lymphocytes % (Manual) Monocytes % (Manual) Eosinophils % (Manual) Basophils % (Manual) Nucleated RBC % Seg Neutrophils # 11.0 H Seg Neutrophils # Man Lymphocytes # (Manual) Monocytes # (Manual) Eosinophils # (Manual) Basophils # (Manual) PT INR Fibrinogen dRVVT Confirm Interp Factor V Activity POC ABG pH POC ABG pCO2 POC ABG pO2 ABG pO2 ABG HCO3 ABG Base Excess ABG Hemoglobin Oxyhemoglobin Sodium Potassium Chloride Carbon Dioxide BUN 51 H Creatinine Glucose 117 H POC Glucose 136 H Lactic Acid Calcium Ionized Calcium Phosphorus Magnesium Direct Bilirubin AST ALT Alkaline Phosphatase Lactate Dehydrogenase Troponin T C-Reactive Protein Total Protein Albumin Prealbumin Triglycerides Cholesterol LDL Cholesterol Direct HDL Cholesterol 25-OH Vitamin D Total PTH Intact Urine pH Urine WBC (Auto) Urine Creatinine Urine Total Protein Fluid Total Protein Vancomycin Trough Rheumatoid Factor Complement C4 Miscellaneous Test Crossmatch 12/09/16 12/09/16 12/09/16 12:29 17:52 23:10 WBC RBC Hgb Hct MCV MCH MCHC RDW Plt Count Lymph % (Auto) [place] % (Auto) Lymph # [place] # Baso # Seg Neutrophils % Seg Neuts % (Manual) Lymphocytes % (Manual) Monocytes % (Manual) Eosinophils % (Manual) Basophils % (Manual) Nucleated RBC % Seg Neutrophils # Seg Neutrophils # Man Lymphocytes # (Manual) Monocytes # (Manual) Eosinophils # (Manual) Basophils # (Manual) PT INR Fibrinogen dRVVT Confirm Interp Factor V Activity POC ABG pH POC ABG pCO2 POC ABG pO2 ABG pO2 ABG HCO3 ABG Base Excess ABG Hemoglobin Oxyhemoglobin Sodium Potassium Chloride Carbon Dioxide BUN Creatinine Glucose POC Glucose 139 H 140 H 129 H Lactic Acid Calcium Ionized Calcium Phosphorus Magnesium Direct Bilirubin AST ALT Alkaline Phosphatase Lactate Dehydrogenase Troponin T C-Reactive Protein Total Protein Albumin Prealbumin Triglycerides Cholesterol LDL Cholesterol Direct HDL Cholesterol 25-OH Vitamin D Total PTH Intact Urine pH Urine WBC (Auto) Urine Creatinine Urine Total Protein Fluid Total Protein Vancomycin Trough Rheumatoid Factor Complement C4 Miscellaneous Test Crossmatch 12/10/16 12/10/16 12/10/16 05:00 05:00 06:54 WBC 15.7 H RBC 2.87 L Hgb 8.2 L Hct 24.4 L MCV MCH MCHC RDW 17.2 H Plt Count Lymph % (Auto) [place] % (Auto) 8.3 H Lymph # [place] # 1.3 H Baso # Seg Neutrophils % 72.8 H Seg Neuts % (Manual) Lymphocytes % (Manual) Monocytes % (Manual) Eosinophils % (Manual) Basophils % (Manual) Nucleated RBC % Seg Neutrophils # 11.4 H Seg Neutrophils # Man Lymphocytes # (Manual) Monocytes # (Manual) Eosinophils # (Manual) Basophils # (Manual) PT INR Fibrinogen dRVVT Confirm Interp Factor V Activity POC ABG pH POC ABG pCO2 POC ABG pO2 ABG pO2 ABG HCO3 ABG Base Excess ABG Hemoglobin Oxyhemoglobin Sodium Potassium Chloride Carbon Dioxide BUN 64 H Creatinine 1.4 H Glucose 134 H POC Glucose 154 H Lactic Acid Calcium Ionized Calcium Phosphorus Magnesium Direct Bilirubin AST ALT Alkaline Phosphatase Lactate Dehydrogenase Troponin T C-Reactive Protein Total Protein Albumin Prealbumin Triglycerides Cholesterol LDL Cholesterol Direct HDL Cholesterol 25-OH Vitamin D Total PTH Intact Urine pH Urine WBC (Auto) Urine Creatinine Urine Total Protein Fluid Total Protein Vancomycin Trough Rheumatoid Factor Complement C4 Miscellaneous Test Crossmatch 12/10/16 12/10/16 12/10/16 11:58 17:29 23:52 WBC RBC Hgb Hct MCV MCH MCHC RDW Plt Count Lymph % (Auto) [place] % (Auto) Lymph # [place] # Baso # Seg Neutrophils % Seg Neuts % (Manual) Lymphocytes % (Manual) Monocytes % (Manual) Eosinophils % (Manual) Basophils % (Manual) Nucleated RBC % Seg Neutrophils # Seg Neutrophils # Man Lymphocytes # (Manual) Monocytes # (Manual) Eosinophils # (Manual) Basophils # (Manual) PT INR Fibrinogen dRVVT Confirm Interp Factor V Activity POC ABG pH POC ABG pCO2 POC ABG pO2 ABG pO2 ABG HCO3 ABG Base Excess ABG Hemoglobin Oxyhemoglobin Sodium Potassium Chloride Carbon Dioxide BUN Creatinine Glucose POC Glucose 144 H 163 H 125 H Lactic Acid Calcium Ionized Calcium Phosphorus Magnesium Direct Bilirubin AST ALT Alkaline Phosphatase Lactate Dehydrogenase Troponin T C-Reactive Protein Total Protein Albumin Prealbumin Triglycerides Cholesterol LDL Cholesterol Direct HDL Cholesterol 25-OH Vitamin D Total PTH Intact Urine pH Urine WBC (Auto) Urine Creatinine Urine Total Protein Fluid Total Protein Vancomycin Trough Rheumatoid Factor Complement C4 Miscellaneous Test Crossmatch 12/11/16 12/11/16 12/11/16 05:38 06:30 06:30 WBC 14.4 H RBC 2.76 L Hgb 7.7 L Hct 23.4 L MCV MCH MCHC RDW 17.2 H Plt Count Lymph % (Auto) [place] % (Auto) 8.8 H Lymph # [place] # 1.3 H Baso # Seg Neutrophils % 72.5 H Seg Neuts % (Manual) Lymphocytes % (Manual) Monocytes % (Manual) Eosinophils % (Manual) Basophils % (Manual) Nucleated RBC % Seg Neutrophils # 10.5 H Seg Neutrophils # Man Lymphocytes # (Manual) Monocytes # (Manual) Eosinophils # (Manual) Basophils # (Manual) PT INR Fibrinogen dRVVT Confirm Interp Factor V Activity POC ABG pH POC ABG pCO2 POC ABG pO2 ABG pO2 ABG HCO3 ABG Base Excess ABG Hemoglobin Oxyhemoglobin Sodium Potassium Chloride Carbon Dioxide BUN 43 H Creatinine Glucose 124 H POC Glucose 141 H Lactic Acid Calcium 8.3 L Ionized Calcium Phosphorus Magnesium 1.60 L Direct Bilirubin AST ALT Alkaline Phosphatase Lactate Dehydrogenase Troponin T C-Reactive Protein Total Protein Albumin Prealbumin Triglycerides Cholesterol LDL Cholesterol Direct HDL Cholesterol 25-OH Vitamin D Total PTH Intact Urine pH Urine WBC (Auto) Urine Creatinine Urine Total Protein Fluid Total Protein Vancomycin Trough Rheumatoid Factor Complement C4 Miscellaneous Test Crossmatch 12/11/16 12/11/16 12/11/16 11:15 17:59 23:48 WBC RBC Hgb Hct MCV MCH MCHC RDW Plt Count Lymph % (Auto) [place] % (Auto) Lymph # [place] # Baso # Seg Neutrophils % Seg Neuts % (Manual) Lymphocytes % (Manual) Monocytes % (Manual) Eosinophils % (Manual) Basophils % (Manual) Nucleated RBC % Seg Neutrophils # Seg Neutrophils # Man Lymphocytes # (Manual) Monocytes # (Manual) Eosinophils # (Manual) Basophils # (Manual) PT INR Fibrinogen dRVVT Confirm Interp Factor V Activity POC ABG pH POC ABG pCO2 POC ABG pO2 ABG pO2 ABG HCO3 ABG Base Excess ABG Hemoglobin Oxyhemoglobin Sodium Potassium Chloride Carbon Dioxide BUN Creatinine Glucose POC Glucose 188 H 106 H 119 H Lactic Acid Calcium Ionized Calcium Phosphorus Magnesium Direct Bilirubin AST ALT Alkaline Phosphatase Lactate Dehydrogenase Troponin T C-Reactive Protein Total Protein Albumin Prealbumin Triglycerides Cholesterol LDL Cholesterol Direct HDL Cholesterol 25-OH Vitamin D Total PTH Intact Urine pH Urine WBC (Auto) Urine Creatinine Urine Total Protein Fluid Total Protein Vancomycin Trough Rheumatoid Factor Complement C4 Miscellaneous Test Crossmatch 12/12/16 12/12/16 12/12/16 05:00 06:01 12:20 WBC 16.7 H RBC 2.87 L Hgb 8.0 L Hct 24.2 L MCV MCH MCHC RDW 17.6 H Plt Count Lymph % (Auto) [place] % (Auto) Lymph # [place] # 1.2 H Baso # Seg Neutrophils % 75.3 H Seg Neuts % (Manual) Lymphocytes % (Manual) Monocytes % (Manual) Eosinophils % (Manual) Basophils % (Manual) Nucleated RBC % Seg Neutrophils # 12.6 H Seg Neutrophils # Man Lymphocytes # (Manual) Monocytes # (Manual) Eosinophils # (Manual) Basophils # (Manual) PT INR Fibrinogen dRVVT Confirm Interp Factor V Activity POC ABG pH POC ABG pCO2 POC ABG pO2 ABG pO2 ABG HCO3 ABG Base Excess ABG Hemoglobin Oxyhemoglobin Sodium Potassium Chloride Carbon Dioxide BUN Creatinine Glucose POC Glucose 134 H 149 H Lactic Acid Calcium Ionized Calcium Phosphorus Magnesium Direct Bilirubin AST ALT Alkaline Phosphatase Lactate Dehydrogenase Troponin T C-Reactive Protein Total Protein Albumin Prealbumin Triglycerides Cholesterol LDL Cholesterol Direct HDL Cholesterol 25-OH Vitamin D Total PTH Intact Urine pH Urine WBC (Auto) Urine Creatinine Urine Total Protein Fluid Total Protein Vancomycin Trough Rheumatoid Factor Complement C4 Miscellaneous Test Crossmatch 12/12/16 12/12/16 12/12/16 17:38 23:01 Unknown WBC RBC Hgb Hct MCV MCH MCHC RDW Plt Count Lymph % (Auto) [place] % (Auto) Lymph # [place] # Baso # Seg Neutrophils % Seg Neuts % (Manual) Lymphocytes % (Manual) Monocytes % (Manual) Eosinophils % (Manual) Basophils % (Manual) Nucleated RBC % Seg Neutrophils # Seg Neutrophils # Man Lymphocytes # (Manual) Monocytes # (Manual) Eosinophils # (Manual) Basophils # (Manual) PT INR Fibrinogen dRVVT Confirm Interp Factor V Activity POC ABG pH POC ABG pCO2 POC ABG pO2 ABG pO2 ABG HCO3 ABG Base Excess ABG Hemoglobin Oxyhemoglobin Sodium Potassium Chloride Carbon Dioxide BUN 60 H Creatinine 1.3 H Glucose 126 H POC Glucose 127 H 144 H Lactic Acid Calcium Ionized Calcium Phosphorus Magnesium Direct Bilirubin AST ALT Alkaline Phosphatase Lactate Dehydrogenase Troponin T C-Reactive Protein Total Protein Albumin Prealbumin Triglycerides Cholesterol LDL Cholesterol Direct HDL Cholesterol 25-OH Vitamin D Total PTH Intact Urine pH Urine WBC (Auto) Urine Creatinine Urine Total Protein Fluid Total Protein Vancomycin Trough Rheumatoid Factor Complement C4 Miscellaneous Test Crossmatch 12/13/16 12/13/16 12/13/16 04:00 04:00 05:19 WBC 18.7 H RBC 2.89 L Hgb 8.3 L Hct 24.6 L MCV MCH MCHC RDW 17.5 H Plt Count Lymph % (Auto) [place] % (Auto) Lymph # [place] # 1.3 H Baso # Seg Neutrophils % 71.5 H Seg Neuts % (Manual) Lymphocytes % (Manual) Monocytes % (Manual) Eosinophils % (Manual) Basophils % (Manual) Nucleated RBC % Seg Neutrophils # 13.4 H Seg Neutrophils # Man Lymphocytes # (Manual) Monocytes # (Manual) Eosinophils # (Manual) Basophils # (Manual) PT INR Fibrinogen dRVVT Confirm Interp Factor V Activity POC ABG pH POC ABG pCO2 POC ABG pO2 ABG pO2 ABG HCO3 ABG Base Excess ABG Hemoglobin Oxyhemoglobin Sodium Potassium Chloride Carbon Dioxide BUN 73 H Creatinine 1.5 H Glucose 141 H POC Glucose 171 H Lactic Acid Calcium Ionized Calcium Phosphorus Magnesium Direct Bilirubin AST ALT Alkaline Phosphatase Lactate Dehydrogenase Troponin T C-Reactive Protein Total Protein Albumin Prealbumin Triglycerides Cholesterol LDL Cholesterol Direct HDL Cholesterol 25-OH Vitamin D Total PTH Intact Urine pH Urine WBC (Auto) Urine Creatinine Urine Total Protein Fluid Total Protein Vancomycin Trough Rheumatoid Factor Complement C4 Miscellaneous Test Crossmatch 12/13/16 12/13/16 12/14/16 12:28 16:48 00:01 WBC RBC Hgb Hct MCV MCH MCHC RDW Plt Count Lymph % (Auto) [place] % (Auto) Lymph # [place] # Baso # Seg Neutrophils % Seg Neuts % (Manual) Lymphocytes % (Manual) Monocytes % (Manual) Eosinophils % (Manual) Basophils % (Manual) Nucleated RBC % Seg Neutrophils # Seg Neutrophils # Man Lymphocytes # (Manual) Monocytes # (Manual) Eosinophils # (Manual) Basophils # (Manual) PT INR Fibrinogen dRVVT Confirm Interp Factor V Activity POC ABG pH POC ABG pCO2 POC ABG pO2 ABG pO2 ABG HCO3 ABG Base Excess ABG Hemoglobin Oxyhemoglobin Sodium Potassium Chloride Carbon Dioxide BUN Creatinine Glucose POC Glucose 206 H 173 H 139 H Lactic Acid Calcium Ionized Calcium Phosphorus Magnesium Direct Bilirubin AST ALT Alkaline Phosphatase Lactate Dehydrogenase Troponin T C-Reactive Protein Total Protein Albumin Prealbumin Triglycerides Cholesterol LDL Cholesterol Direct HDL Cholesterol 25-OH Vitamin D Total PTH Intact Urine pH Urine WBC (Auto) Urine Creatinine Urine Total Protein Fluid Total Protein Vancomycin Trough Rheumatoid Factor Complement C4 Miscellaneous Test Crossmatch 12/14/16 12/14/16 12/14/16 05:16 06:10 11:17 WBC RBC Hgb Hct MCV MCH MCHC RDW Plt Count Lymph % (Auto) [place] % (Auto) Lymph # [place] # Baso # Seg Neutrophils % Seg Neuts % (Manual) Lymphocytes % (Manual) Monocytes % (Manual) Eosinophils % (Manual) Basophils % (Manual) Nucleated RBC % Seg Neutrophils # Seg Neutrophils # Man Lymphocytes # (Manual) Monocytes # (Manual) Eosinophils # (Manual) Basophils # (Manual) PT INR Fibrinogen dRVVT Confirm Interp Factor V Activity POC ABG pH POC ABG pCO2 POC ABG pO2 ABG pO2 ABG HCO3 ABG Base Excess ABG Hemoglobin Oxyhemoglobin Sodium Potassium Chloride Carbon Dioxide BUN 57 H Creatinine 1.4 H Glucose 135 H POC Glucose 158 H 137 H Lactic Acid Calcium Ionized Calcium Phosphorus Magnesium Direct Bilirubin AST ALT Alkaline Phosphatase Lactate Dehydrogenase Troponin T C-Reactive Protein Total Protein Albumin Prealbumin Triglycerides Cholesterol LDL Cholesterol Direct HDL Cholesterol 25-OH Vitamin D Total PTH Intact Urine pH Urine WBC (Auto) Urine Creatinine Urine Total Protein Fluid Total Protein Vancomycin Trough Rheumatoid Factor Complement C4 Miscellaneous Test Crossmatch 12/14/16 12/14/16 12/15/16 17:52 23:27 04:00 WBC RBC Hgb Hct MCV MCH MCHC RDW Plt Count Lymph % (Auto) [place] % (Auto) Lymph # [place] # Baso # Seg Neutrophils % Seg Neuts % (Manual) Lymphocytes % (Manual) Monocytes % (Manual) Eosinophils % (Manual) Basophils % (Manual) Nucleated RBC % Seg Neutrophils # Seg Neutrophils # Man Lymphocytes # (Manual) Monocytes # (Manual) Eosinophils # (Manual) Basophils # (Manual) PT INR Fibrinogen dRVVT Confirm Interp Factor V Activity POC ABG pH POC ABG pCO2 POC ABG pO2 ABG pO2 ABG HCO3 ABG Base Excess ABG Hemoglobin Oxyhemoglobin Sodium Potassium Chloride 97.9 L Carbon Dioxide BUN 75 H Creatinine 1.6 H Glucose 122 H POC Glucose 149 H 163 H Lactic Acid Calcium Ionized Calcium Phosphorus 5.20 H Magnesium Direct Bilirubin AST ALT Alkaline Phosphatase Lactate Dehydrogenase Troponin T C-Reactive Protein Total Protein Albumin Prealbumin Triglycerides Cholesterol LDL Cholesterol Direct HDL Cholesterol 25-OH Vitamin D Total PTH Intact Urine pH Urine WBC (Auto) Urine Creatinine Urine Total Protein Fluid Total Protein Vancomycin Trough Rheumatoid Factor Complement C4 Miscellaneous Test Crossmatch 12/15/16 12/15/16 12/15/16 05:50 11:24 17:01 WBC RBC Hgb Hct MCV MCH MCHC RDW Plt Count Lymph % (Auto) [place] % (Auto) Lymph # [place] # Baso # Seg Neutrophils % Seg Neuts % (Manual) Lymphocytes % (Manual) Monocytes % (Manual) Eosinophils % (Manual) Basophils % (Manual) Nucleated RBC % Seg Neutrophils # Seg Neutrophils # Man Lymphocytes # (Manual) Monocytes # (Manual) Eosinophils # (Manual) Basophils # (Manual) PT INR Fibrinogen dRVVT Confirm Interp Factor V Activity POC ABG pH POC ABG pCO2 POC ABG pO2 ABG pO2 ABG HCO3 ABG Base Excess ABG Hemoglobin Oxyhemoglobin Sodium Potassium Chloride Carbon Dioxide BUN Creatinine Glucose POC Glucose 150 H 146 H 167 H Lactic Acid Calcium Ionized Calcium Phosphorus Magnesium Direct Bilirubin AST ALT Alkaline Phosphatase Lactate Dehydrogenase Troponin T C-Reactive Protein Total Protein Albumin Prealbumin Triglycerides Cholesterol LDL Cholesterol Direct HDL Cholesterol 25-OH Vitamin D Total PTH Intact Urine pH Urine WBC (Auto) Urine Creatinine Urine Total Protein Fluid Total Protein Vancomycin Trough Rheumatoid Factor Complement C4 Miscellaneous Test Crossmatch 12/15/16 12/16/16 12/16/16 23:34 05:25 11:24 WBC RBC Hgb Hct MCV MCH MCHC RDW Plt Count Lymph % (Auto) [place] % (Auto) Lymph # [place] # Baso # Seg Neutrophils % Seg Neuts % (Manual) Lymphocytes % (Manual) Monocytes % (Manual) Eosinophils % (Manual) Basophils % (Manual) Nucleated RBC % Seg Neutrophils # Seg Neutrophils # Man Lymphocytes # (Manual) Monocytes # (Manual) Eosinophils # (Manual) Basophils # (Manual) PT INR Fibrinogen dRVVT Confirm Interp Factor V Activity POC ABG pH POC ABG pCO2 POC ABG pO2 ABG pO2 ABG HCO3 ABG Base Excess ABG Hemoglobin Oxyhemoglobin Sodium Potassium Chloride Carbon Dioxide BUN Creatinine Glucose POC Glucose 127 H 139 H 165 H Lactic Acid Calcium Ionized Calcium Phosphorus Magnesium Direct Bilirubin AST ALT Alkaline Phosphatase Lactate Dehydrogenase Troponin T C-Reactive Protein Total Protein Albumin Prealbumin Triglycerides Cholesterol LDL Cholesterol Direct HDL Cholesterol 25-OH Vitamin D Total PTH Intact Urine pH Urine WBC (Auto) Urine Creatinine Urine Total Protein Fluid Total Protein Vancomycin Trough Rheumatoid Factor Complement C4 Miscellaneous Test Crossmatch 12/16/16 12/16/16 12/16/16 15:30 16:25 17:31 WBC 17.8 H RBC 2.38 L Hgb 6.4 L Hct 20.3 L MCV MCH 27 L MCHC RDW 17.4 H Plt Count Lymph % (Auto) [place] % (Auto) Lymph # [place] # Baso # Seg Neutrophils % Seg Neuts % (Manual) Lymphocytes % (Manual) Monocytes % (Manual) 10.0 H Eosinophils % (Manual) Basophils % (Manual) Nucleated RBC % Seg Neutrophils # Seg Neutrophils # Man 8.5 H Lymphocytes # (Manual) Monocytes # (Manual) 1.8 H Eosinophils # (Manual) Basophils # (Manual) PT INR Fibrinogen dRVVT Confirm Interp Factor V Activity POC ABG pH POC ABG pCO2 POC ABG pO2 ABG pO2 ABG HCO3 ABG Base Excess ABG Hemoglobin Oxyhemoglobin Sodium Potassium Chloride Carbon Dioxide BUN Creatinine Glucose POC Glucose 176 H Lactic Acid Calcium Ionized Calcium Phosphorus Magnesium Direct Bilirubin AST ALT Alkaline Phosphatase Lactate Dehydrogenase Troponin T C-Reactive Protein Total Protein Albumin Prealbumin Triglycerides Cholesterol LDL Cholesterol Direct HDL Cholesterol 25-OH Vitamin D Total PTH Intact Urine pH Urine WBC (Auto) Urine Creatinine Urine Total Protein Fluid Total Protein Vancomycin Trough Rheumatoid Factor Complement C4 Miscellaneous Test Crossmatch See Detail 12/17/16 12/17/16 12/17/16 00:14 04:00 05:00 WBC 20.0 H RBC 2.99 L Hgb 8.5 L Hct 25.7 L MCV MCH MCHC RDW 17.2 H Plt Count Lymph % (Auto) [place] % (Auto) Lymph # [place] # Baso # Seg Neutrophils % Seg Neuts % (Manual) Lymphocytes % (Manual) Monocytes % (Manual) Eosinophils % (Manual) Basophils % (Manual) Nucleated RBC % Seg Neutrophils # Seg Neutrophils # Man Lymphocytes # (Manual) Monocytes # (Manual) Eosinophils # (Manual) Basophils # (Manual) PT INR Fibrinogen dRVVT Confirm Interp Factor V Activity POC ABG pH POC ABG pCO2 POC ABG pO2 ABG pO2 ABG HCO3 ABG Base Excess ABG Hemoglobin Oxyhemoglobin Sodium Potassium Chloride 97.7 L Carbon Dioxide BUN 73 H Creatinine 1.7 H Glucose 136 H POC Glucose 148 H Lactic Acid Calcium Ionized Calcium Phosphorus 2.20 L Magnesium 2.70 H Direct Bilirubin AST ALT Alkaline Phosphatase Lactate Dehydrogenase Troponin T C-Reactive Protein Total Protein Albumin Prealbumin Triglycerides Cholesterol LDL Cholesterol Direct HDL Cholesterol 25-OH Vitamin D Total PTH Intact Urine pH Urine WBC (Auto) Urine Creatinine Urine Total Protein Fluid Total Protein Vancomycin Trough Rheumatoid Factor Complement C4 Miscellaneous Test Crossmatch 12/17/16 12/17/16 12/17/16 05:39 12:50 16:32 WBC RBC Hgb Hct MCV MCH MCHC RDW Plt Count Lymph % (Auto) [place] % (Auto) Lymph # [place] # Baso # Seg Neutrophils % Seg Neuts % (Manual) Lymphocytes % (Manual) Monocytes % (Manual) Eosinophils % (Manual) Basophils % (Manual) Nucleated RBC % Seg Neutrophils # Seg Neutrophils # Man Lymphocytes # (Manual) Monocytes # (Manual) Eosinophils # (Manual) Basophils # (Manual) PT INR Fibrinogen dRVVT Confirm Interp Factor V Activity POC ABG pH POC ABG pCO2 POC ABG pO2 ABG pO2 ABG HCO3 ABG Base Excess ABG Hemoglobin Oxyhemoglobin Sodium Potassium Chloride Carbon Dioxide BUN Creatinine Glucose POC Glucose 162 H 146 H 169 H Lactic Acid Calcium Ionized Calcium Phosphorus Magnesium Direct Bilirubin AST ALT Alkaline Phosphatase Lactate Dehydrogenase Troponin T C-Reactive Protein Total Protein Albumin Prealbumin Triglycerides Cholesterol LDL Cholesterol Direct HDL Cholesterol 25-OH Vitamin D Total PTH Intact Urine pH Urine WBC (Auto) Urine Creatinine Urine Total Protein Fluid Total Protein Vancomycin Trough Rheumatoid Factor Complement C4 Miscellaneous Test Crossmatch 12/17/16 12/18/16 12/18/16 23:57 05:00 05:32 WBC RBC Hgb Hct MCV MCH MCHC RDW Plt Count Lymph % (Auto) [place] % (Auto) Lymph # [place] # Baso # Seg Neutrophils % Seg Neuts % (Manual) Lymphocytes % (Manual) Monocytes % (Manual) Eosinophils % (Manual) Basophils % (Manual) Nucleated RBC % Seg Neutrophils # Seg Neutrophils # Man Lymphocytes # (Manual) Monocytes # (Manual) Eosinophils # (Manual) Basophils # (Manual) PT INR Fibrinogen dRVVT Confirm Interp Factor V Activity POC ABG pH POC ABG pCO2 POC ABG pO2 ABG pO2 ABG HCO3 ABG Base Excess ABG Hemoglobin Oxyhemoglobin Sodium Potassium Chloride 97.0 L Carbon Dioxide BUN 63 H Creatinine 1.4 H Glucose 174 H POC Glucose 145 H 201 H Lactic Acid Calcium Ionized Calcium Phosphorus 1.70 L D Magnesium Direct Bilirubin AST ALT Alkaline Phosphatase 257 H Lactate Dehydrogenase Troponin T C-Reactive Protein Total Protein 5.9 L Albumin 1.8 L Prealbumin Triglycerides Cholesterol LDL Cholesterol Direct HDL Cholesterol 25-OH Vitamin D Total PTH Intact Urine pH Urine WBC (Auto) Urine Creatinine Urine Total Protein Fluid Total Protein Vancomycin Trough Rheumatoid Factor Complement C4 Miscellaneous Test Crossmatch 12/18/16 12/18/16 12/18/16 11:43 16:52 23:52 WBC RBC Hgb Hct MCV MCH MCHC RDW Plt Count Lymph % (Auto) [place] % (Auto) Lymph # [place] # Baso # Seg Neutrophils % Seg Neuts % (Manual) Lymphocytes % (Manual) Monocytes % (Manual) Eosinophils % (Manual) Basophils % (Manual) Nucleated RBC % Seg Neutrophils # Seg Neutrophils # Man Lymphocytes # (Manual) Monocytes # (Manual) Eosinophils # (Manual) Basophils # (Manual) PT INR Fibrinogen dRVVT Confirm Interp Factor V Activity POC ABG pH POC ABG pCO2 POC ABG pO2 ABG pO2 ABG HCO3 ABG Base Excess ABG Hemoglobin Oxyhemoglobin Sodium Potassium Chloride Carbon Dioxide BUN Creatinine Glucose POC Glucose 177 H 110 H 162 H Lactic Acid Calcium Ionized Calcium Phosphorus Magnesium Direct Bilirubin AST ALT Alkaline Phosphatase Lactate Dehydrogenase Troponin T C-Reactive Protein Total Protein Albumin Prealbumin Triglycerides Cholesterol LDL Cholesterol Direct HDL Cholesterol 25-OH Vitamin D Total PTH Intact Urine pH Urine WBC (Auto) Urine Creatinine Urine Total Protein Fluid Total Protein Vancomycin Trough Rheumatoid Factor Complement C4 Miscellaneous Test Crossmatch 12/19/16 12/19/16 12/19/16 05:02 05:24 09:30 WBC 20.1 H RBC 2.73 L Hgb 7.6 L Hct 23.6 L MCV MCH MCHC RDW 17.6 H Plt Count Lymph % (Auto) [place] % (Auto) Lymph # [place] # Baso # Seg Neutrophils % Seg Neuts % (Manual) Lymphocytes % (Manual) 13.0 L Monocytes % (Manual) Eosinophils % (Manual) Basophils % (Manual) Nucleated RBC % 1.0 H Seg Neutrophils # Seg Neutrophils # Man 12.9 H Lymphocytes # (Manual) Monocytes # (Manual) 1.4 H Eosinophils # (Manual) Basophils # (Manual) 0.2 H PT INR Fibrinogen dRVVT Confirm Interp Factor V Activity POC ABG pH POC ABG pCO2 POC ABG pO2 ABG pO2 ABG HCO3 ABG Base Excess ABG Hemoglobin Oxyhemoglobin Sodium Potassium Chloride 97.8 L Carbon Dioxide BUN 84 H Creatinine 1.6 H Glucose 133 H POC Glucose 134 H Lactic Acid Calcium Ionized Calcium Phosphorus Magnesium Direct Bilirubin AST ALT Alkaline Phosphatase Lactate Dehydrogenase Troponin T C-Reactive Protein Total Protein Albumin Prealbumin Triglycerides Cholesterol LDL Cholesterol Direct HDL Cholesterol 25-OH Vitamin D Total PTH Intact Urine pH Urine WBC (Auto) Urine Creatinine Urine Total Protein Fluid Total Protein Vancomycin Trough Rheumatoid Factor Complement C4 Miscellaneous Test Crossmatch 12/19/16 12/19/16 12/19/16 09:36 11:12 18:29 WBC RBC Hgb Hct MCV MCH MCHC RDW Plt Count Lymph % (Auto) [place] % (Auto) Lymph # [place] # Baso # Seg Neutrophils % Seg Neuts % (Manual) Lymphocytes % (Manual) Monocytes % (Manual) Eosinophils % (Manual) Basophils % (Manual) Nucleated RBC % Seg Neutrophils # Seg Neutrophils # Man Lymphocytes # (Manual) Monocytes # (Manual) Eosinophils # (Manual) Basophils # (Manual) PT INR Fibrinogen dRVVT Confirm Interp Factor V Activity POC ABG pH 7.503 H POC ABG pCO2 30.1 L POC ABG pO2 ABG pO2 ABG HCO3 ABG Base Excess ABG Hemoglobin Oxyhemoglobin Sodium Potassium Chloride Carbon Dioxide BUN Creatinine Glucose POC Glucose 138 H 156 H Lactic Acid Calcium Ionized Calcium Phosphorus Magnesium Direct Bilirubin AST ALT Alkaline Phosphatase Lactate Dehydrogenase Troponin T C-Reactive Protein Total Protein Albumin Prealbumin Triglycerides Cholesterol LDL Cholesterol Direct HDL Cholesterol 25-OH Vitamin D Total PTH Intact Urine pH Urine WBC (Auto) Urine Creatinine Urine Total Protein Fluid Total Protein Vancomycin Trough Rheumatoid Factor Complement C4 Miscellaneous Test Crossmatch 12/20/16 12/20/16 12/20/16 00:03 06:17 07:07 WBC RBC Hgb Hct MCV MCH MCHC RDW Plt Count Lymph % (Auto) [place] % (Auto) Lymph # [place] # Baso # Seg Neutrophils % Seg Neuts % (Manual) Lymphocytes % (Manual) Monocytes % (Manual) Eosinophils % (Manual) Basophils % (Manual) Nucleated RBC % Seg Neutrophils # Seg Neutrophils # Man Lymphocytes # (Manual) Monocytes # (Manual) Eosinophils # (Manual) Basophils # (Manual) PT INR Fibrinogen dRVVT Confirm Interp Factor V Activity POC ABG pH POC ABG pCO2 POC ABG pO2 ABG pO2 ABG HCO3 ABG Base Excess ABG Hemoglobin Oxyhemoglobin Sodium Potassium Chloride 97.1 L Carbon Dioxide 20 L BUN 97 H Creatinine 1.8 H Glucose 153 H POC Glucose 152 H 175 H Lactic Acid Calcium Ionized Calcium Phosphorus Magnesium Direct Bilirubin AST ALT Alkaline Phosphatase Lactate Dehydrogenase Troponin T C-Reactive Protein Total Protein Albumin Prealbumin Triglycerides Cholesterol LDL Cholesterol Direct HDL Cholesterol 25-OH Vitamin D Total PTH Intact Urine pH Urine WBC (Auto) Urine Creatinine Urine Total Protein Fluid Total Protein Vancomycin Trough Rheumatoid Factor Complement C4 Miscellaneous Test Crossmatch 12/20/16 12/20/16 12/20/16 12:00 17:42 23:53 WBC RBC Hgb Hct MCV MCH MCHC RDW Plt Count Lymph % (Auto) [place] % (Auto) Lymph # [place] # Baso # Seg Neutrophils % Seg Neuts % (Manual) Lymphocytes % (Manual) Monocytes % (Manual) Eosinophils % (Manual) Basophils % (Manual) Nucleated RBC % Seg Neutrophils # Seg Neutrophils # Man Lymphocytes # (Manual) Monocytes # (Manual) Eosinophils # (Manual) Basophils # (Manual) PT INR Fibrinogen dRVVT Confirm Interp Factor V Activity POC ABG pH POC ABG pCO2 POC ABG pO2 ABG pO2 ABG HCO3 ABG Base Excess ABG Hemoglobin Oxyhemoglobin Sodium Potassium Chloride Carbon Dioxide BUN Creatinine Glucose POC Glucose 141 H 156 H 132 H Lactic Acid Calcium Ionized Calcium Phosphorus Magnesium Direct Bilirubin AST ALT Alkaline Phosphatase Lactate Dehydrogenase Troponin T C-Reactive Protein Total Protein Albumin Prealbumin Triglycerides Cholesterol LDL Cholesterol Direct HDL Cholesterol 25-OH Vitamin D Total PTH Intact Urine pH Urine WBC (Auto) Urine Creatinine Urine Total Protein Fluid Total Protein Vancomycin Trough Rheumatoid Factor Complement C4 Miscellaneous Test Crossmatch 12/21/16 12/21/16 12/21/16 05:49 08:50 12:19 WBC RBC Hgb Hct MCV MCH MCHC RDW Plt Count Lymph % (Auto) [place] % (Auto) Lymph # [place] # Baso # Seg Neutrophils % Seg Neuts % (Manual) Lymphocytes % (Manual) Monocytes % (Manual) Eosinophils % (Manual) Basophils % (Manual) Nucleated RBC % Seg Neutrophils # Seg Neutrophils # Man Lymphocytes # (Manual) Monocytes # (Manual) Eosinophils # (Manual) Basophils # (Manual) PT INR Fibrinogen dRVVT Confirm Interp Factor V Activity POC ABG pH POC ABG pCO2 POC ABG pO2 ABG pO2 ABG HCO3 ABG Base Excess ABG Hemoglobin Oxyhemoglobin Sodium Potassium 5.2 H D Chloride Carbon Dioxide BUN 63 H Creatinine Glucose 122 H POC Glucose 132 H 136 H Lactic Acid Calcium 8.3 L Ionized Calcium Phosphorus Magnesium Direct Bilirubin AST ALT Alkaline Phosphatase Lactate Dehydrogenase Troponin T C-Reactive Protein Total Protein Albumin Prealbumin Triglycerides Cholesterol LDL Cholesterol Direct HDL Cholesterol 25-OH Vitamin D Total PTH Intact Urine pH Urine WBC (Auto) Urine Creatinine Urine Total Protein Fluid Total Protein Vancomycin Trough Rheumatoid Factor Complement C4 Miscellaneous Test Crossmatch 12/21/16 12/21/16 12/22/16 17:22 23:58 05:49 WBC RBC Hgb Hct MCV MCH MCHC RDW Plt Count Lymph % (Auto) [place] % (Auto) Lymph # [place] # Baso # Seg Neutrophils % Seg Neuts % (Manual) Lymphocytes % (Manual) Monocytes % (Manual) Eosinophils % (Manual) Basophils % (Manual) Nucleated RBC % Seg Neutrophils # Seg Neutrophils # Man Lymphocytes # (Manual) Monocytes # (Manual) Eosinophils # (Manual) Basophils # (Manual) PT INR Fibrinogen dRVVT Confirm Interp Factor V Activity POC ABG pH POC ABG pCO2 POC ABG pO2 ABG pO2 ABG HCO3 ABG Base Excess ABG Hemoglobin Oxyhemoglobin Sodium Potassium Chloride Carbon Dioxide BUN Creatinine Glucose POC Glucose 135 H 149 H 140 H Lactic Acid Calcium Ionized Calcium Phosphorus Magnesium Direct Bilirubin AST ALT Alkaline Phosphatase Lactate Dehydrogenase Troponin T C-Reactive Protein Total Protein Albumin Prealbumin Triglycerides Cholesterol LDL Cholesterol Direct HDL Cholesterol 25-OH Vitamin D Total PTH Intact Urine pH Urine WBC (Auto) Urine Creatinine Urine Total Protein Fluid Total Protein Vancomycin Trough Rheumatoid Factor Complement C4 Miscellaneous Test Crossmatch 12/22/16 12/22/16 12/22/16 06:10 11:17 17:31 WBC RBC Hgb Hct MCV MCH MCHC RDW Plt Count Lymph % (Auto) [place] % (Auto) Lymph # [place] # Baso # Seg Neutrophils % Seg Neuts % (Manual) Lymphocytes % (Manual) Monocytes % (Manual) Eosinophils % (Manual) Basophils % (Manual) Nucleated RBC % Seg Neutrophils # Seg Neutrophils # Man Lymphocytes # (Manual) Monocytes # (Manual) Eosinophils # (Manual) Basophils # (Manual) PT INR Fibrinogen dRVVT Confirm Interp Factor V Activity POC ABG pH POC ABG pCO2 POC ABG pO2 ABG pO2 ABG HCO3 ABG Base Excess ABG Hemoglobin Oxyhemoglobin Sodium Potassium Chloride Carbon Dioxide BUN 76 H Creatinine 1.5 H Glucose 241 H POC Glucose 193 H 148 H Lactic Acid Calcium Ionized Calcium Phosphorus Magnesium Direct Bilirubin AST ALT Alkaline Phosphatase Lactate Dehydrogenase Troponin T C-Reactive Protein Total Protein Albumin Prealbumin Triglycerides Cholesterol LDL Cholesterol Direct HDL Cholesterol 25-OH Vitamin D Total PTH Intact Urine pH Urine WBC (Auto) Urine Creatinine Urine Total Protein Fluid Total Protein Vancomycin Trough Rheumatoid Factor Complement C4 Miscellaneous Test Crossmatch 12/22/16 12/23/16 12/23/16 23:58 05:00 05:26 WBC RBC Hgb Hct MCV MCH MCHC RDW Plt Count Lymph % (Auto) [place] % (Auto) Lymph # [place] # Baso # Seg Neutrophils % Seg Neuts % (Manual) Lymphocytes % (Manual) Monocytes % (Manual) Eosinophils % (Manual) Basophils % (Manual) Nucleated RBC % Seg Neutrophils # Seg Neutrophils # Man Lymphocytes # (Manual) Monocytes # (Manual) Eosinophils # (Manual) Basophils # (Manual) PT INR Fibrinogen dRVVT Confirm Interp Factor V Activity POC ABG pH POC ABG pCO2 POC ABG pO2 ABG pO2 ABG HCO3 ABG Base Excess ABG Hemoglobin Oxyhemoglobin Sodium Potassium Chloride Carbon Dioxide BUN 49 H Creatinine Glucose 143 H POC Glucose 165 H 154 H Lactic Acid Calcium 8.2 L Ionized Calcium Phosphorus Magnesium 1.60 L Direct Bilirubin AST ALT Alkaline Phosphatase Lactate Dehydrogenase Troponin T C-Reactive Protein Total Protein Albumin Prealbumin Triglycerides Cholesterol LDL Cholesterol Direct HDL Cholesterol 25-OH Vitamin D Total PTH Intact Urine pH Urine WBC (Auto) Urine Creatinine Urine Total Protein Fluid Total Protein Vancomycin Trough Rheumatoid Factor Complement C4 Miscellaneous Test Crossmatch 12/23/16 12/23/16 12/24/16 12:35 17:01 00:01 WBC RBC Hgb Hct MCV MCH MCHC RDW Plt Count Lymph % (Auto) [place] % (Auto) Lymph # [place] # Baso # Seg Neutrophils % Seg Neuts % (Manual) Lymphocytes % (Manual) Monocytes % (Manual) Eosinophils % (Manual) Basophils % (Manual) Nucleated RBC % Seg Neutrophils # Seg Neutrophils # Man Lymphocytes # (Manual) Monocytes # (Manual) Eosinophils # (Manual) Basophils # (Manual) PT INR Fibrinogen dRVVT Confirm Interp Factor V Activity POC ABG pH POC ABG pCO2 POC ABG pO2 ABG pO2 ABG HCO3 ABG Base Excess ABG Hemoglobin Oxyhemoglobin Sodium Potassium Chloride Carbon Dioxide BUN Creatinine Glucose POC Glucose 164 H 149 H 135 H Lactic Acid Calcium Ionized Calcium Phosphorus Magnesium Direct Bilirubin AST ALT Alkaline Phosphatase Lactate Dehydrogenase Troponin T C-Reactive Protein Total Protein Albumin Prealbumin Triglycerides Cholesterol LDL Cholesterol Direct HDL Cholesterol 25-OH Vitamin D Total PTH Intact Urine pH Urine WBC (Auto) Urine Creatinine Urine Total Protein Fluid Total Protein Vancomycin Trough Rheumatoid Factor Complement C4 Miscellaneous Test Crossmatch 12/24/16 12/24/16 12/24/16 05:41 07:01 11:38 WBC RBC Hgb Hct MCV MCH MCHC RDW Plt Count Lymph % (Auto) [place] % (Auto) Lymph # [place] # Baso # Seg Neutrophils % Seg Neuts % (Manual) Lymphocytes % (Manual) Monocytes % (Manual) Eosinophils % (Manual) Basophils % (Manual) Nucleated RBC % Seg Neutrophils # Seg Neutrophils # Man Lymphocytes # (Manual) Monocytes # (Manual) Eosinophils # (Manual) Basophils # (Manual) PT INR Fibrinogen dRVVT Confirm Interp Factor V Activity POC ABG pH POC ABG pCO2 POC ABG pO2 ABG pO2 ABG HCO3 ABG Base Excess ABG Hemoglobin Oxyhemoglobin Sodium Potassium Chloride Carbon Dioxide BUN 72 H Creatinine 1.3 H Glucose 130 H POC Glucose 132 H 156 H Lactic Acid Calcium 8.2 L Ionized Calcium Phosphorus Magnesium Direct Bilirubin AST ALT Alkaline Phosphatase Lactate Dehydrogenase Troponin T C-Reactive Protein Total Protein Albumin Prealbumin Triglycerides Cholesterol LDL Cholesterol Direct HDL Cholesterol 25-OH Vitamin D Total PTH Intact Urine pH Urine WBC (Auto) Urine Creatinine Urine Total Protein Fluid Total Protein Vancomycin Trough Rheumatoid Factor Complement C4 Miscellaneous Test Crossmatch 12/24/16 12/25/16 12/25/16 17:53 00:23 05:45 WBC RBC Hgb Hct MCV MCH MCHC RDW Plt Count Lymph % (Auto) [place] % (Auto) Lymph # [place] # Baso # Seg Neutrophils % Seg Neuts % (Manual) Lymphocytes % (Manual) Monocytes % (Manual) Eosinophils % (Manual) Basophils % (Manual) Nucleated RBC % Seg Neutrophils # Seg Neutrophils # Man Lymphocytes # (Manual) Monocytes # (Manual) Eosinophils # (Manual) Basophils # (Manual) PT INR Fibrinogen dRVVT Confirm Interp Factor V Activity POC ABG pH POC ABG pCO2 POC ABG pO2 ABG pO2 ABG HCO3 ABG Base Excess ABG Hemoglobin Oxyhemoglobin Sodium 146 H Potassium Chloride Carbon Dioxide BUN 51 H Creatinine Glucose 109 H POC Glucose 169 H 117 H Lactic Acid Calcium Ionized Calcium Phosphorus Magnesium Direct Bilirubin AST ALT Alkaline Phosphatase Lactate Dehydrogenase Troponin T C-Reactive Protein Total Protein Albumin Prealbumin Triglycerides Cholesterol LDL Cholesterol Direct HDL Cholesterol 25-OH Vitamin D Total PTH Intact Urine pH Urine WBC (Auto) Urine Creatinine Urine Total Protein Fluid Total Protein Vancomycin Trough Rheumatoid Factor Complement C4 Miscellaneous Test Crossmatch 12/25/16 12/25/16 12/25/16 06:43 11:29 17:14 WBC RBC Hgb Hct MCV MCH MCHC RDW Plt Count Lymph % (Auto) [place] % (Auto) Lymph # [place] # Baso # Seg Neutrophils % Seg Neuts % (Manual) Lymphocytes % (Manual) Monocytes % (Manual) Eosinophils % (Manual) Basophils % (Manual) Nucleated RBC % Seg Neutrophils # Seg Neutrophils # Man Lymphocytes # (Manual) Monocytes # (Manual) Eosinophils # (Manual) Basophils # (Manual) PT INR Fibrinogen dRVVT Confirm Interp Factor V Activity POC ABG pH POC ABG pCO2 POC ABG pO2 ABG pO2 ABG HCO3 ABG Base Excess ABG Hemoglobin Oxyhemoglobin Sodium Potassium Chloride Carbon Dioxide BUN Creatinine Glucose POC Glucose 117 H 128 H 120 H Lactic Acid Calcium Ionized Calcium Phosphorus Magnesium Direct Bilirubin AST ALT Alkaline Phosphatase Lactate Dehydrogenase Troponin T C-Reactive Protein Total Protein Albumin Prealbumin Triglycerides Cholesterol LDL Cholesterol Direct HDL Cholesterol 25-OH Vitamin D Total PTH Intact Urine pH Urine WBC (Auto) Urine Creatinine Urine Total Protein Fluid Total Protein Vancomycin Trough Rheumatoid Factor Complement C4 Miscellaneous Test Crossmatch 12/25/16 12/26/16 12/26/16 23:54 05:40 05:50 WBC 16.2 H RBC 2.32 L Hgb 6.2 L Hct 20.1 L MCV MCH 27 L MCHC RDW 18.6 H Plt Count Lymph % (Auto) [place] % (Auto) Lymph # [place] # Baso # Seg Neutrophils % Seg Neuts % (Manual) Lymphocytes % (Manual) Monocytes % (Manual) Eosinophils % (Manual) Basophils % (Manual) Nucleated RBC % Seg Neutrophils # Seg Neutrophils # Man Lymphocytes # (Manual) Monocytes # (Manual) Eosinophils # (Manual) Basophils # (Manual) PT INR Fibrinogen dRVVT Confirm Interp Factor V Activity POC ABG pH POC ABG pCO2 POC ABG pO2 ABG pO2 ABG HCO3 ABG Base Excess ABG Hemoglobin Oxyhemoglobin Sodium Potassium Chloride Carbon Dioxide BUN Creatinine Glucose POC Glucose 126 H 132 H Lactic Acid Calcium Ionized Calcium Phosphorus Magnesium Direct Bilirubin AST ALT Alkaline Phosphatase Lactate Dehydrogenase Troponin T C-Reactive Protein Total Protein Albumin Prealbumin Triglycerides Cholesterol LDL Cholesterol Direct HDL Cholesterol 25-OH Vitamin D Total PTH Intact Urine pH Urine WBC (Auto) Urine Creatinine Urine Total Protein Fluid Total Protein Vancomycin Trough Rheumatoid Factor Complement C4 Miscellaneous Test Crossmatch 12/26/16 12/26/16 12/26/16 05:50 12:17 12:33 WBC RBC Hgb Hct MCV MCH MCHC RDW Plt Count Lymph % (Auto) [place] % (Auto) Lymph # [place] # Baso # Seg Neutrophils % Seg Neuts % (Manual) Lymphocytes % (Manual) Monocytes % (Manual) Eosinophils % (Manual) Basophils % (Manual) Nucleated RBC % Seg Neutrophils # Seg Neutrophils # Man Lymphocytes # (Manual) Monocytes # (Manual) Eosinophils # (Manual) Basophils # (Manual) PT INR Fibrinogen dRVVT Confirm Interp Factor V Activity POC ABG pH POC ABG pCO2 POC ABG pO2 ABG pO2 ABG HCO3 ABG Base Excess ABG Hemoglobin Oxyhemoglobin Sodium Potassium Chloride Carbon Dioxide BUN 73 H Creatinine 1.3 H Glucose 113 H POC Glucose 117 H Lactic Acid Calcium Ionized Calcium Phosphorus Magnesium Direct Bilirubin AST ALT Alkaline Phosphatase Lactate Dehydrogenase Troponin T C-Reactive Protein Total Protein Albumin Prealbumin Triglycerides Cholesterol LDL Cholesterol Direct HDL Cholesterol 25-OH Vitamin D Total PTH Intact Urine pH Urine WBC (Auto) Urine Creatinine Urine Total Protein Fluid Total Protein Vancomycin Trough Rheumatoid Factor Complement C4 Miscellaneous Test Crossmatch See Detail 12/26/16 12/26/16 12/27/16 20:00 23:21 05:00 WBC RBC Hgb 8.4 L Hct 26.3 L D MCV MCH MCHC RDW Plt Count Lymph % (Auto) [place] % (Auto) Lymph # [place] # Baso # Seg Neutrophils % Seg Neuts % (Manual) Lymphocytes % (Manual) Monocytes % (Manual) Eosinophils % (Manual) Basophils % (Manual) Nucleated RBC % Seg Neutrophils # Seg Neutrophils # Man Lymphocytes # (Manual) Monocytes # (Manual) Eosinophils # (Manual) Basophils # (Manual) PT INR Fibrinogen dRVVT Confirm Interp Factor V Activity POC ABG pH POC ABG pCO2 POC ABG pO2 ABG pO2 ABG HCO3 ABG Base Excess ABG Hemoglobin Oxyhemoglobin Sodium Potassium Chloride Carbon Dioxide BUN 85 H Creatinine 1.6 H Glucose 118 H POC Glucose 124 H Lactic Acid Calcium Ionized Calcium Phosphorus 4.80 H Magnesium Direct Bilirubin AST ALT Alkaline Phosphatase Lactate Dehydrogenase Troponin T C-Reactive Protein Total Protein Albumin Prealbumin Triglycerides Cholesterol LDL Cholesterol Direct HDL Cholesterol 25-OH Vitamin D Total PTH Intact Urine pH Urine WBC (Auto) Urine Creatinine Urine Total Protein Fluid Total Protein Vancomycin Trough Rheumatoid Factor Complement C4 Miscellaneous Test Crossmatch 12/27/16 12/27/16 12/27/16 05:00 05:35 12:24 WBC RBC Hgb 7.6 L Hct 22.8 L MCV MCH MCHC RDW Plt Count Lymph % (Auto) [place] % (Auto) Lymph # [place] # Baso # Seg Neutrophils % Seg Neuts % (Manual) Lymphocytes % (Manual) Monocytes % (Manual) Eosinophils % (Manual) Basophils % (Manual) Nucleated RBC % Seg Neutrophils # Seg Neutrophils # Man Lymphocytes # (Manual) Monocytes # (Manual) Eosinophils # (Manual) Basophils # (Manual) PT INR Fibrinogen dRVVT Confirm Interp Factor V Activity POC ABG pH POC ABG pCO2 POC ABG pO2 ABG pO2 ABG HCO3 ABG Base Excess ABG Hemoglobin Oxyhemoglobin Sodium Potassium Chloride Carbon Dioxide BUN Creatinine Glucose POC Glucose 115 H 131 H Lactic Acid Calcium Ionized Calcium Phosphorus Magnesium Direct Bilirubin AST ALT Alkaline Phosphatase Lactate Dehydrogenase Troponin T C-Reactive Protein Total Protein Albumin Prealbumin Triglycerides Cholesterol LDL Cholesterol Direct HDL Cholesterol 25-OH Vitamin D Total PTH Intact Urine pH Urine WBC (Auto) Urine Creatinine Urine Total Protein Fluid Total Protein Vancomycin Trough Rheumatoid Factor Complement C4 Miscellaneous Test Crossmatch 12/27/16 12/28/16 12/28/16 17:16 00:18 04:00 WBC RBC Hgb Hct MCV MCH MCHC RDW Plt Count Lymph % (Auto) [place] % (Auto) Lymph # [place] # Baso # Seg Neutrophils % Seg Neuts % (Manual) Lymphocytes % (Manual) Monocytes % (Manual) Eosinophils % (Manual) Basophils % (Manual) Nucleated RBC % Seg Neutrophils # Seg Neutrophils # Man Lymphocytes # (Manual) Monocytes # (Manual) Eosinophils # (Manual) Basophils # (Manual) PT INR Fibrinogen dRVVT Confirm Interp Factor V Activity POC ABG pH POC ABG pCO2 POC ABG pO2 ABG pO2 ABG HCO3 ABG Base Excess ABG Hemoglobin Oxyhemoglobin Sodium Potassium 3.5 L Chloride Carbon Dioxide BUN 57 H Creatinine Glucose 118 H POC Glucose 136 H 120 H Lactic Acid Calcium 8.3 L Ionized Calcium Phosphorus Magnesium Direct Bilirubin AST ALT Alkaline Phosphatase Lactate Dehydrogenase Troponin T C-Reactive Protein Total Protein Albumin Prealbumin Triglycerides Cholesterol LDL Cholesterol Direct HDL Cholesterol 25-OH Vitamin D Total PTH Intact Urine pH Urine WBC (Auto) Urine Creatinine Urine Total Protein Fluid Total Protein Vancomycin Trough Rheumatoid Factor Complement C4 Miscellaneous Test Crossmatch 12/28/16 12/28/16 12/28/16 04:00 05:11 08:30 WBC 17.0 H RBC 2.58 L Hgb 7.1 L Hct 22.0 L MCV MCH MCHC RDW 17.6 H Plt Count Lymph % (Auto) 12.2 L [place] % (Auto) Lymph # [place] # 1.1 H Baso # Seg Neutrophils % 80.5 H Seg Neuts % (Manual) Lymphocytes % (Manual) Monocytes % (Manual) Eosinophils % (Manual) Basophils % (Manual) Nucleated RBC % Seg Neutrophils # 13.7 H Seg Neutrophils # Man Lymphocytes # (Manual) Monocytes # (Manual) Eosinophils # (Manual) Basophils # (Manual) PT 16.1 H INR 1.23 H Fibrinogen dRVVT Confirm Interp Factor V Activity POC ABG pH POC ABG pCO2 POC ABG pO2 ABG pO2 ABG HCO3 ABG Base Excess ABG Hemoglobin Oxyhemoglobin Sodium Potassium Chloride Carbon Dioxide BUN Creatinine Glucose POC Glucose 122 H Lactic Acid Calcium Ionized Calcium Phosphorus Magnesium Direct Bilirubin AST ALT Alkaline Phosphatase Lactate Dehydrogenase Troponin T C-Reactive Protein Total Protein Albumin Prealbumin Triglycerides Cholesterol LDL Cholesterol Direct HDL Cholesterol 25-OH Vitamin D Total PTH Intact Urine pH Urine WBC (Auto) Urine Creatinine Urine Total Protein Fluid Total Protein Vancomycin Trough Rheumatoid Factor Complement C4 Miscellaneous Test Crossmatch 12/28/16 12/28/16 12/28/16 12:27 16:32 23:46 WBC RBC Hgb Hct MCV MCH MCHC RDW Plt Count Lymph % (Auto) [place] % (Auto) Lymph # [place] # Baso # Seg Neutrophils % Seg Neuts % (Manual) Lymphocytes % (Manual) Monocytes % (Manual) Eosinophils % (Manual) Basophils % (Manual) Nucleated RBC % Seg Neutrophils # Seg Neutrophils # Man Lymphocytes # (Manual) Monocytes # (Manual) Eosinophils # (Manual) Basophils # (Manual) PT INR Fibrinogen dRVVT Confirm Interp Factor V Activity POC ABG pH POC ABG pCO2 POC ABG pO2 ABG pO2 ABG HCO3 ABG Base Excess ABG Hemoglobin Oxyhemoglobin Sodium Potassium Chloride Carbon Dioxide BUN Creatinine Glucose POC Glucose 127 H 117 H 108 H Lactic Acid Calcium Ionized Calcium Phosphorus Magnesium Direct Bilirubin AST ALT Alkaline Phosphatase Lactate Dehydrogenase Troponin T C-Reactive Protein Total Protein Albumin Prealbumin Triglycerides Cholesterol LDL Cholesterol Direct HDL Cholesterol 25-OH Vitamin D Total PTH Intact Urine pH Urine WBC (Auto) Urine Creatinine Urine Total Protein Fluid Total Protein Vancomycin Trough Rheumatoid Factor Complement C4 Miscellaneous Test Crossmatch 12/29/16 12/29/16 12/29/16 05:15 05:15 05:32 WBC RBC Hgb Hct MCV MCH MCHC RDW Plt Count Lymph % (Auto) [place] % (Auto) Lymph # [place] # Baso # Seg Neutrophils % Seg Neuts % (Manual) Lymphocytes % (Manual) Monocytes % (Manual) Eosinophils % (Manual) Basophils % (Manual) Nucleated RBC % Seg Neutrophils # Seg Neutrophils # Man Lymphocytes # (Manual) Monocytes # (Manual) Eosinophils # (Manual) Basophils # (Manual) PT INR Fibrinogen dRVVT Confirm Interp Factor V Activity POC ABG pH POC ABG pCO2 POC ABG pO2 ABG pO2 ABG HCO3 ABG Base Excess ABG Hemoglobin Oxyhemoglobin Sodium Potassium Chloride Carbon Dioxide BUN 74 H Creatinine 1.6 H Glucose 111 H POC Glucose 123 H Lactic Acid Calcium Ionized Calcium Phosphorus Magnesium Direct Bilirubin AST ALT Alkaline Phosphatase Lactate Dehydrogenase Troponin T C-Reactive Protein Total Protein Albumin Prealbumin 0.110 L Triglycerides Cholesterol LDL Cholesterol Direct HDL Cholesterol 25-OH Vitamin D Total PTH Intact Urine pH Urine WBC (Auto) Urine Creatinine Urine Total Protein Fluid Total Protein Vancomycin Trough Rheumatoid Factor Complement C4 Miscellaneous Test Crossmatch 12/29/16 12/29/16 12/29/16 11:43 13:45 14:00 WBC 13.8 H RBC 2.26 L Hgb 6.3 L Hct 20.4 L MCV MCH MCHC RDW 18.3 H Plt Count Lymph % (Auto) [place] % (Auto) Lymph # [place] # 0.9 H Baso # Seg Neutrophils % 78.6 H Seg Neuts % (Manual) Lymphocytes % (Manual) Monocytes % (Manual) Eosinophils % (Manual) Basophils % (Manual) Nucleated RBC % Seg Neutrophils # 10.8 H Seg Neutrophils # Man Lymphocytes # (Manual) Monocytes # (Manual) Eosinophils # (Manual) Basophils # (Manual) PT INR Fibrinogen dRVVT Confirm Interp Factor V Activity POC ABG pH POC ABG pCO2 POC ABG pO2 ABG pO2 ABG HCO3 ABG Base Excess ABG Hemoglobin Oxyhemoglobin Sodium Potassium Chloride Carbon Dioxide BUN Creatinine Glucose POC Glucose 133 H Lactic Acid Calcium Ionized Calcium Phosphorus Magnesium Direct Bilirubin AST ALT Alkaline Phosphatase Lactate Dehydrogenase Troponin T C-Reactive Protein Total Protein Albumin Prealbumin Triglycerides Cholesterol LDL Cholesterol Direct HDL Cholesterol 25-OH Vitamin D Total PTH Intact Urine pH Urine WBC (Auto) Urine Creatinine Urine Total Protein Fluid Total Protein Vancomycin Trough Rheumatoid Factor Complement C4 Miscellaneous Test Crossmatch See Detail 12/29/16 12/29/16 12/29/16 17:03 23:15 23:22 WBC RBC Hgb 7.3 L Hct 22.3 L MCV MCH MCHC RDW Plt Count Lymph % (Auto) [place] % (Auto) Lymph # [place] # Baso # Seg Neutrophils % Seg Neuts % (Manual) Lymphocytes % (Manual) Monocytes % (Manual) Eosinophils % (Manual) Basophils % (Manual) Nucleated RBC % Seg Neutrophils # Seg Neutrophils # Man Lymphocytes # (Manual) Monocytes # (Manual) Eosinophils # (Manual) Basophils # (Manual) PT INR Fibrinogen dRVVT Confirm Interp Factor V Activity POC ABG pH POC ABG pCO2 POC ABG pO2 ABG pO2 ABG HCO3 ABG Base Excess ABG Hemoglobin Oxyhemoglobin Sodium Potassium Chloride Carbon Dioxide BUN Creatinine Glucose POC Glucose 139 H 120 H Lactic Acid Calcium Ionized Calcium Phosphorus Magnesium Direct Bilirubin AST ALT Alkaline Phosphatase Lactate Dehydrogenase Troponin T C-Reactive Protein Total Protein Albumin Prealbumin Triglycerides Cholesterol LDL Cholesterol Direct HDL Cholesterol 25-OH Vitamin D Total PTH Intact Urine pH Urine WBC (Auto) Urine Creatinine Urine Total Protein Fluid Total Protein Vancomycin Trough Rheumatoid Factor Complement C4 Miscellaneous Test Crossmatch 12/30/16 12/30/16 12/30/16 04:20 04:20 05:43 WBC 15.6 H RBC 2.81 L Hgb 8.0 L Hct 24.0 L MCV MCH MCHC RDW 16.9 H Plt Count Lymph % (Auto) [place] % (Auto) Lymph # [place] # 1.0 H Baso # Seg Neutrophils % 76.2 H Seg Neuts % (Manual) Lymphocytes % (Manual) Monocytes % (Manual) Eosinophils % (Manual) Basophils % (Manual) Nucleated RBC % Seg Neutrophils # 11.9 H Seg Neutrophils # Man Lymphocytes # (Manual) Monocytes # (Manual) Eosinophils # (Manual) Basophils # (Manual) PT INR Fibrinogen dRVVT Confirm Interp Factor V Activity POC ABG pH POC ABG pCO2 POC ABG pO2 ABG pO2 ABG HCO3 ABG Base Excess ABG Hemoglobin Oxyhemoglobin Sodium Potassium Chloride Carbon Dioxide BUN 87 H Creatinine 1.8 H Glucose 119 H POC Glucose 115 H Lactic Acid Calcium Ionized Calcium Phosphorus Magnesium Direct Bilirubin AST ALT Alkaline Phosphatase Lactate Dehydrogenase Troponin T C-Reactive Protein Total Protein Albumin Prealbumin Triglycerides Cholesterol LDL Cholesterol Direct HDL Cholesterol 25-OH Vitamin D Total PTH Intact Urine pH Urine WBC (Auto) Urine Creatinine Urine Total Protein Fluid Total Protein Vancomycin Trough Rheumatoid Factor Complement C4 Miscellaneous Test Crossmatch 12/30/16 12/30/16 12/31/16 17:27 23:21 04:00 WBC RBC Hgb Hct MCV MCH MCHC RDW Plt Count Lymph % (Auto) [place] % (Auto) Lymph # [place] # Baso # Seg Neutrophils % Seg Neuts % (Manual) Lymphocytes % (Manual) Monocytes % (Manual) Eosinophils % (Manual) Basophils % (Manual) Nucleated RBC % Seg Neutrophils # Seg Neutrophils # Man Lymphocytes # (Manual) Monocytes # (Manual) Eosinophils # (Manual) Basophils # (Manual) PT INR Fibrinogen dRVVT Confirm Interp Factor V Activity POC ABG pH POC ABG pCO2 POC ABG pO2 ABG pO2 ABG HCO3 ABG Base Excess ABG Hemoglobin Oxyhemoglobin Sodium Potassium Chloride Carbon Dioxide BUN 59 H Creatinine Glucose 298 H POC Glucose 144 H 125 H Lactic Acid Calcium Ionized Calcium Phosphorus Magnesium Direct Bilirubin AST ALT Alkaline Phosphatase Lactate Dehydrogenase Troponin T C-Reactive Protein Total Protein Albumin Prealbumin Triglycerides Cholesterol LDL Cholesterol Direct HDL Cholesterol 25-OH Vitamin D Total PTH Intact Urine pH Urine WBC (Auto) Urine Creatinine Urine Total Protein Fluid Total Protein Vancomycin Trough Rheumatoid Factor Complement C4 Miscellaneous Test Crossmatch 12/31/16 12/31/16 12/31/16 05:11 12:18 18:17 WBC RBC Hgb Hct MCV MCH MCHC RDW Plt Count Lymph % (Auto) [place] % (Auto) Lymph # [place] # Baso # Seg Neutrophils % Seg Neuts % (Manual) Lymphocytes % (Manual) Monocytes % (Manual) Eosinophils % (Manual) Basophils % (Manual) Nucleated RBC % Seg Neutrophils # Seg Neutrophils # Man Lymphocytes # (Manual) Monocytes # (Manual) Eosinophils # (Manual) Basophils # (Manual) PT INR Fibrinogen dRVVT Confirm Interp Factor V Activity POC ABG pH POC ABG pCO2 POC ABG pO2 ABG pO2 ABG HCO3 ABG Base Excess ABG Hemoglobin Oxyhemoglobin Sodium Potassium Chloride Carbon Dioxide BUN Creatinine Glucose POC Glucose 167 H 125 H 133 H Lactic Acid Calcium Ionized Calcium Phosphorus Magnesium Direct Bilirubin AST ALT Alkaline Phosphatase Lactate Dehydrogenase Troponin T C-Reactive Protein Total Protein Albumin Prealbumin Triglycerides Cholesterol LDL Cholesterol Direct HDL Cholesterol 25-OH Vitamin D Total PTH Intact Urine pH Urine WBC (Auto) Urine Creatinine Urine Total Protein Fluid Total Protein Vancomycin Trough Rheumatoid Factor Complement C4 Miscellaneous Test Crossmatch 12/31/16 01/01/17 01/01/17 23:55 05:00 05:12 WBC RBC Hgb Hct MCV MCH MCHC RDW Plt Count Lymph % (Auto) [place] % (Auto) Lymph # [place] # Baso # Seg Neutrophils % Seg Neuts % (Manual) Lymphocytes % (Manual) Monocytes % (Manual) Eosinophils % (Manual) Basophils % (Manual) Nucleated RBC % Seg Neutrophils # Seg Neutrophils # Man Lymphocytes # (Manual) Monocytes # (Manual) Eosinophils # (Manual) Basophils # (Manual) PT INR Fibrinogen dRVVT Confirm Interp Factor V Activity POC ABG pH POC ABG pCO2 POC ABG pO2 ABG pO2 ABG HCO3 ABG Base Excess ABG Hemoglobin Oxyhemoglobin Sodium Potassium Chloride Carbon Dioxide BUN 76 H Creatinine 1.5 H Glucose 109 H POC Glucose 129 H 129 H Lactic Acid Calcium Ionized Calcium Phosphorus Magnesium Direct Bilirubin AST ALT Alkaline Phosphatase 536 H Lactate Dehydrogenase Troponin T C-Reactive Protein Total Protein Albumin 1.5 L Prealbumin Triglycerides Cholesterol LDL Cholesterol Direct HDL Cholesterol 25-OH Vitamin D Total PTH Intact Urine pH Urine WBC (Auto) Urine Creatinine Urine Total Protein Fluid Total Protein Vancomycin Trough Rheumatoid Factor Complement C4 Miscellaneous Test Crossmatch 01/01/17 01/01/17 01/01/17 12:25 17:01 23:32 WBC RBC Hgb Hct MCV MCH MCHC RDW Plt Count Lymph % (Auto) [place] % (Auto) Lymph # [place] # Baso # Seg Neutrophils % Seg Neuts % (Manual) Lymphocytes % (Manual) Monocytes % (Manual) Eosinophils % (Manual) Basophils % (Manual) Nucleated RBC % Seg Neutrophils # Seg Neutrophils # Man Lymphocytes # (Manual) Monocytes # (Manual) Eosinophils # (Manual) Basophils # (Manual) PT INR Fibrinogen dRVVT Confirm Interp Factor V Activity POC ABG pH POC ABG pCO2 POC ABG pO2 ABG pO2 ABG HCO3 ABG Base Excess ABG Hemoglobin Oxyhemoglobin Sodium Potassium Chloride Carbon Dioxide BUN Creatinine Glucose POC Glucose 140 H 142 H 112 H Lactic Acid Calcium Ionized Calcium Phosphorus Magnesium Direct Bilirubin AST ALT Alkaline Phosphatase Lactate Dehydrogenase Troponin T C-Reactive Protein Total Protein Albumin Prealbumin Triglycerides Cholesterol LDL Cholesterol Direct HDL Cholesterol 25-OH Vitamin D Total PTH Intact Urine pH Urine WBC (Auto) Urine Creatinine Urine Total Protein Fluid Total Protein Vancomycin Trough Rheumatoid Factor Complement C4 Miscellaneous Test Crossmatch 01/02/17 01/02/17 01/02/17 04:56 06:00 11:37 WBC RBC Hgb Hct MCV MCH MCHC RDW Plt Count Lymph % (Auto) [place] % (Auto) Lymph # [place] # Baso # Seg Neutrophils % Seg Neuts % (Manual) Lymphocytes % (Manual) Monocytes % (Manual) Eosinophils % (Manual) Basophils % (Manual) Nucleated RBC % Seg Neutrophils # Seg Neutrophils # Man Lymphocytes # (Manual) Monocytes # (Manual) Eosinophils # (Manual) Basophils # (Manual) PT INR Fibrinogen dRVVT Confirm Interp Factor V Activity POC ABG pH POC ABG pCO2 POC ABG pO2 ABG pO2 ABG HCO3 ABG Base Excess ABG Hemoglobin Oxyhemoglobin Sodium Potassium Chloride Carbon Dioxide BUN 88 H Creatinine 1.7 H Glucose 113 H POC Glucose 136 H 200 H Lactic Acid Calcium Ionized Calcium Phosphorus Magnesium Direct Bilirubin AST ALT Alkaline Phosphatase Lactate Dehydrogenase Troponin T C-Reactive Protein Total Protein Albumin Prealbumin Triglycerides Cholesterol LDL Cholesterol Direct HDL Cholesterol 25-OH Vitamin D Total PTH Intact Urine pH Urine WBC (Auto) Urine Creatinine Urine Total Protein Fluid Total Protein Vancomycin Trough Rheumatoid Factor Complement C4 Miscellaneous Test Crossmatch 01/02/17 01/02/17 01/03/17 17:42 22:52 04:54 WBC RBC Hgb Hct MCV MCH MCHC RDW Plt Count Lymph % (Auto) [place] % (Auto) Lymph # [place] # Baso # Seg Neutrophils % Seg Neuts % (Manual) Lymphocytes % (Manual) Monocytes % (Manual) Eosinophils % (Manual) Basophils % (Manual) Nucleated RBC % Seg Neutrophils # Seg Neutrophils # Man Lymphocytes # (Manual) Monocytes # (Manual) Eosinophils # (Manual) Basophils # (Manual) PT INR Fibrinogen dRVVT Confirm Interp Factor V Activity POC ABG pH POC ABG pCO2 POC ABG pO2 ABG pO2 ABG HCO3 ABG Base Excess ABG Hemoglobin Oxyhemoglobin Sodium Potassium Chloride Carbon Dioxide BUN Creatinine Glucose POC Glucose 112 H 133 H 111 H Lactic Acid Calcium Ionized Calcium Phosphorus Magnesium Direct Bilirubin AST ALT Alkaline Phosphatase Lactate Dehydrogenase Troponin T C-Reactive Protein Total Protein Albumin Prealbumin Triglycerides Cholesterol LDL Cholesterol Direct HDL Cholesterol 25-OH Vitamin D Total PTH Intact Urine pH Urine WBC (Auto) Urine Creatinine Urine Total Protein Fluid Total Protein Vancomycin Trough Rheumatoid Factor Complement C4 Miscellaneous Test Crossmatch 01/03/17 01/03/17 01/03/17 05:00 05:00 14:02 WBC 11.2 H RBC 2.56 L Hgb 7.2 L Hct 22.3 L MCV MCH MCHC RDW 17.3 H Plt Count Lymph % (Auto) [place] % (Auto) 10.0 H Lymph # [place] # 1.1 H Baso # Seg Neutrophils % 70.5 H Seg Neuts % (Manual) Lymphocytes % (Manual) Monocytes % (Manual) Eosinophils % (Manual) Basophils % (Manual) Nucleated RBC % Seg Neutrophils # 7.9 H Seg Neutrophils # Man Lymphocytes # (Manual) Monocytes # (Manual) Eosinophils # (Manual) Basophils # (Manual) PT INR Fibrinogen dRVVT Confirm Interp Factor V Activity POC ABG pH POC ABG pCO2 POC ABG pO2 ABG pO2 ABG HCO3 ABG Base Excess ABG Hemoglobin Oxyhemoglobin Sodium Potassium Chloride Carbon Dioxide BUN 60 H Creatinine 1.3 H Glucose 110 H POC Glucose 119 H Lactic Acid Calcium Ionized Calcium Phosphorus Magnesium Direct Bilirubin AST ALT Alkaline Phosphatase Lactate Dehydrogenase Troponin T C-Reactive Protein Total Protein Albumin Prealbumin Triglycerides Cholesterol LDL Cholesterol Direct HDL Cholesterol 25-OH Vitamin D Total PTH Intact Urine pH Urine WBC (Auto) Urine Creatinine Urine Total Protein Fluid Total Protein Vancomycin Trough Rheumatoid Factor Complement C4 Miscellaneous Test Crossmatch 01/03/17 01/03/17 01/04/17 18:13 23:40 05:57 WBC RBC Hgb Hct MCV MCH MCHC RDW Plt Count Lymph % (Auto) [place] % (Auto) Lymph # [place] # Baso # Seg Neutrophils % Seg Neuts % (Manual) Lymphocytes % (Manual) Monocytes % (Manual) Eosinophils % (Manual) Basophils % (Manual) Nucleated RBC % Seg Neutrophils # Seg Neutrophils # Man Lymphocytes # (Manual) Monocytes # (Manual) Eosinophils # (Manual) Basophils # (Manual) PT INR Fibrinogen dRVVT Confirm Interp Factor V Activity POC ABG pH POC ABG pCO2 POC ABG pO2 ABG pO2 ABG HCO3 ABG Base Excess ABG Hemoglobin Oxyhemoglobin Sodium Potassium Chloride Carbon Dioxide BUN Creatinine Glucose POC Glucose 107 H 129 H 111 H Lactic Acid Calcium Ionized Calcium Phosphorus Magnesium Direct Bilirubin AST ALT Alkaline Phosphatase Lactate Dehydrogenase Troponin T C-Reactive Protein Total Protein Albumin Prealbumin Triglycerides Cholesterol LDL Cholesterol Direct HDL Cholesterol 25-OH Vitamin D Total PTH Intact Urine pH Urine WBC (Auto) Urine Creatinine Urine Total Protein Fluid Total Protein Vancomycin Trough Rheumatoid Factor Complement C4 Miscellaneous Test Crossmatch 01/04/17 01/04/17 01/04/17 12:46 15:27 17:11 WBC RBC Hgb Hct MCV MCH MCHC RDW Plt Count Lymph % (Auto) [place] % (Auto) Lymph # [place] # Baso # Seg Neutrophils % Seg Neuts % (Manual) Lymphocytes % (Manual) Monocytes % (Manual) Eosinophils % (Manual) Basophils % (Manual) Nucleated RBC % Seg Neutrophils # Seg Neutrophils # Man Lymphocytes # (Manual) Monocytes # (Manual) Eosinophils # (Manual) Basophils # (Manual) PT INR Fibrinogen dRVVT Confirm Interp Factor V Activity POC ABG pH POC ABG pCO2 POC ABG pO2 ABG pO2 ABG HCO3 ABG Base Excess ABG Hemoglobin Oxyhemoglobin Sodium Potassium Chloride Carbon Dioxide BUN 43 H Creatinine Glucose 124 H POC Glucose 159 H 125 H Lactic Acid Calcium 8.0 L Ionized Calcium Phosphorus 2.10 L Magnesium Direct Bilirubin AST ALT Alkaline Phosphatase Lactate Dehydrogenase Troponin T C-Reactive Protein Total Protein Albumin Prealbumin Triglycerides Cholesterol LDL Cholesterol Direct HDL Cholesterol 25-OH Vitamin D Total PTH Intact Urine pH Urine WBC (Auto) Urine Creatinine Urine Total Protein Fluid Total Protein Vancomycin Trough Rheumatoid Factor Complement C4 Miscellaneous Test Crossmatch 01/04/17 01/05/17 01/05/17 23:31 04:00 05:46 WBC RBC Hgb Hct MCV MCH MCHC RDW Plt Count Lymph % (Auto) [place] % (Auto) Lymph # [place] # Baso # Seg Neutrophils % Seg Neuts % (Manual) Lymphocytes % (Manual) Monocytes % (Manual) Eosinophils % (Manual) Basophils % (Manual) Nucleated RBC % Seg Neutrophils # Seg Neutrophils # Man Lymphocytes # (Manual) Monocytes # (Manual) Eosinophils # (Manual) Basophils # (Manual) PT INR Fibrinogen dRVVT Confirm Interp Factor V Activity POC ABG pH POC ABG pCO2 POC ABG pO2 ABG pO2 ABG HCO3 ABG Base Excess ABG Hemoglobin Oxyhemoglobin Sodium Potassium Chloride Carbon Dioxide BUN 52 H Creatinine 1.3 H Glucose 113 H POC Glucose 123 H 118 H Lactic Acid Calcium Ionized Calcium Phosphorus 2.40 L Magnesium Direct Bilirubin AST ALT Alkaline Phosphatase Lactate Dehydrogenase Troponin T C-Reactive Protein Total Protein Albumin Prealbumin Triglycerides Cholesterol LDL Cholesterol Direct HDL Cholesterol 25-OH Vitamin D Total PTH Intact Urine pH Urine WBC (Auto) Urine Creatinine Urine Total Protein Fluid Total Protein Vancomycin Trough Rheumatoid Factor Complement C4 Miscellaneous Test Crossmatch 01/05/17 01/05/17 01/05/17 11:41 17:48 23:27 WBC RBC Hgb Hct MCV MCH MCHC RDW Plt Count Lymph % (Auto) [place] % (Auto) Lymph # [place] # Baso # Seg Neutrophils % Seg Neuts % (Manual) Lymphocytes % (Manual) Monocytes % (Manual) Eosinophils % (Manual) Basophils % (Manual) Nucleated RBC % Seg Neutrophils # Seg Neutrophils # Man Lymphocytes # (Manual) Monocytes # (Manual) Eosinophils # (Manual) Basophils # (Manual) PT INR Fibrinogen dRVVT Confirm Interp Factor V Activity POC ABG pH POC ABG pCO2 POC ABG pO2 ABG pO2 ABG HCO3 ABG Base Excess ABG Hemoglobin Oxyhemoglobin Sodium Potassium Chloride Carbon Dioxide BUN Creatinine Glucose POC Glucose 163 H 142 H 155 H Lactic Acid Calcium Ionized Calcium Phosphorus Magnesium Direct Bilirubin AST ALT Alkaline Phosphatase Lactate Dehydrogenase Troponin T C-Reactive Protein Total Protein Albumin Prealbumin Triglycerides Cholesterol LDL Cholesterol Direct HDL Cholesterol 25-OH Vitamin D Total PTH Intact Urine pH Urine WBC (Auto) Urine Creatinine Urine Total Protein Fluid Total Protein Vancomycin Trough Rheumatoid Factor Complement C4 Miscellaneous Test Crossmatch 01/06/17 01/06/17 01/06/17 05:20 07:35 11:18 WBC RBC Hgb Hct MCV MCH MCHC RDW Plt Count Lymph % (Auto) [place] % (Auto) Lymph # [place] # Baso # Seg Neutrophils % Seg Neuts % (Manual) Lymphocytes % (Manual) Monocytes % (Manual) Eosinophils % (Manual) Basophils % (Manual) Nucleated RBC % Seg Neutrophils # Seg Neutrophils # Man Lymphocytes # (Manual) Monocytes # (Manual) Eosinophils # (Manual) Basophils # (Manual) PT INR Fibrinogen dRVVT Confirm Interp Factor V Activity POC ABG pH POC ABG pCO2 POC ABG pO2 ABG pO2 ABG HCO3 ABG Base Excess ABG Hemoglobin Oxyhemoglobin Sodium Potassium Chloride Carbon Dioxide BUN 74 H Creatinine 1.6 H Glucose 135 H POC Glucose 108 H 149 H Lactic Acid Calcium Ionized Calcium Phosphorus Magnesium Direct Bilirubin AST ALT Alkaline Phosphatase Lactate Dehydrogenase Troponin T C-Reactive Protein Total Protein Albumin Prealbumin Triglycerides Cholesterol LDL Cholesterol Direct HDL Cholesterol 25-OH Vitamin D Total PTH Intact Urine pH Urine WBC (Auto) Urine Creatinine Urine Total Protein Fluid Total Protein Vancomycin Trough Rheumatoid Factor Complement C4 Miscellaneous Test Crossmatch 01/06/17 01/07/17 01/07/17 17:17 00:23 05:31 WBC RBC Hgb Hct MCV MCH MCHC RDW Plt Count Lymph % (Auto) [place] % (Auto) Lymph # [place] # Baso # Seg Neutrophils % Seg Neuts % (Manual) Lymphocytes % (Manual) Monocytes % (Manual) Eosinophils % (Manual) Basophils % (Manual) Nucleated RBC % Seg Neutrophils # Seg Neutrophils # Man Lymphocytes # (Manual) Monocytes # (Manual) Eosinophils # (Manual) Basophils # (Manual) PT INR Fibrinogen dRVVT Confirm Interp Factor V Activity POC ABG pH POC ABG pCO2 POC ABG pO2 ABG pO2 ABG HCO3 ABG Base Excess ABG Hemoglobin Oxyhemoglobin Sodium Potassium Chloride Carbon Dioxide BUN Creatinine Glucose POC Glucose 146 H 165 H 153 H Lactic Acid Calcium Ionized Calcium Phosphorus Magnesium Direct Bilirubin AST ALT Alkaline Phosphatase Lactate Dehydrogenase Troponin T C-Reactive Protein Total Protein Albumin Prealbumin Triglycerides Cholesterol LDL Cholesterol Direct HDL Cholesterol 25-OH Vitamin D Total PTH Intact Urine pH Urine WBC (Auto) Urine Creatinine Urine Total Protein Fluid Total Protein Vancomycin Trough Rheumatoid Factor Complement C4 Miscellaneous Test Crossmatch 01/07/17 01/07/17 01/07/17 06:00 11:39 17:11 WBC RBC Hgb Hct MCV MCH MCHC RDW Plt Count Lymph % (Auto) [place] % (Auto) Lymph # [place] # Baso # Seg Neutrophils % Seg Neuts % (Manual) Lymphocytes % (Manual) Monocytes % (Manual) Eosinophils % (Manual) Basophils % (Manual) Nucleated RBC % Seg Neutrophils # Seg Neutrophils # Man Lymphocytes # (Manual) Monocytes # (Manual) Eosinophils # (Manual) Basophils # (Manual) PT INR Fibrinogen dRVVT Confirm Interp Factor V Activity POC ABG pH POC ABG pCO2 POC ABG pO2 ABG pO2 ABG HCO3 ABG Base Excess ABG Hemoglobin Oxyhemoglobin Sodium Potassium Chloride Carbon Dioxide BUN 42 H Creatinine Glucose 175 H POC Glucose 163 H 163 H Lactic Acid Calcium Ionized Calcium Phosphorus 2.40 L D Magnesium Direct Bilirubin AST ALT Alkaline Phosphatase Lactate Dehydrogenase Troponin T C-Reactive Protein Total Protein Albumin Prealbumin Triglycerides Cholesterol LDL Cholesterol Direct HDL Cholesterol 25-OH Vitamin D Total PTH Intact Urine pH Urine WBC (Auto) Urine Creatinine Urine Total Protein Fluid Total Protein Vancomycin Trough Rheumatoid Factor Complement C4 Miscellaneous Test Crossmatch 01/07/17 01/08/17 01/08/17 23:40 05:00 05:00 WBC 27.4 H RBC 2.27 L Hgb 6.1 L Hct 20.4 L MCV MCH 27 L MCHC RDW 17.8 H Plt Count Lymph % (Auto) [place] % (Auto) Lymph # [place] # Baso # Seg Neutrophils % Seg Neuts % (Manual) Lymphocytes % (Manual) Monocytes % (Manual) Eosinophils % (Manual) Basophils % (Manual) Nucleated RBC % Seg Neutrophils # Seg Neutrophils # Man Lymphocytes # (Manual) Monocytes # (Manual) Eosinophils # (Manual) Basophils # (Manual) PT INR Fibrinogen dRVVT Confirm Interp Factor V Activity POC ABG pH POC ABG pCO2 POC ABG pO2 ABG pO2 ABG HCO3 ABG Base Excess ABG Hemoglobin Oxyhemoglobin Sodium Potassium Chloride Carbon Dioxide 16 L D BUN 62 H Creatinine 1.6 H D Glucose 103 H POC Glucose 135 H Lactic Acid Calcium Ionized Calcium Phosphorus Magnesium Direct Bilirubin AST ALT Alkaline Phosphatase Lactate Dehydrogenase Troponin T C-Reactive Protein Total Protein Albumin Prealbumin Triglycerides Cholesterol LDL Cholesterol Direct HDL Cholesterol 25-OH Vitamin D Total PTH Intact Urine pH Urine WBC (Auto) Urine Creatinine Urine Total Protein Fluid Total Protein Vancomycin Trough Rheumatoid Factor Complement C4 Miscellaneous Test Crossmatch 01/08/17 01/08/17 01/08/17 05:25 10:37 10:37 WBC RBC Hgb Hct MCV MCH MCHC RDW Plt Count Lymph % (Auto) [place] % (Auto) Lymph # [place] # Baso # Seg Neutrophils % Seg Neuts % (Manual) Lymphocytes % (Manual) Monocytes % (Manual) Eosinophils % (Manual) Basophils % (Manual) Nucleated RBC % Seg Neutrophils # Seg Neutrophils # Man Lymphocytes # (Manual) Monocytes # (Manual) Eosinophils # (Manual) Basophils # (Manual) PT INR Fibrinogen dRVVT Confirm Interp Factor V Activity POC ABG pH POC ABG pCO2 POC ABG pO2 ABG pO2 ABG HCO3 ABG Base Excess ABG Hemoglobin Oxyhemoglobin Sodium Potassium Chloride Carbon Dioxide BUN Creatinine Glucose POC Glucose 106 H Lactic Acid Calcium Ionized Calcium Phosphorus Magnesium Direct Bilirubin AST ALT Alkaline Phosphatase Lactate Dehydrogenase Troponin T C-Reactive Protein 24.40 H Total Protein Albumin Prealbumin Triglycerides Cholesterol LDL Cholesterol Direct HDL Cholesterol 25-OH Vitamin D Total PTH Intact Urine pH Urine WBC (Auto) Urine Creatinine Urine Total Protein Fluid Total Protein Vancomycin Trough Rheumatoid Factor Complement C4 Miscellaneous Test Crossmatch See Detail 01/08/17 01/08/17 01/08/17 10:37 11:33 15:15 WBC RBC Hgb Hct MCV MCH MCHC RDW Plt Count Lymph % (Auto) [place] % (Auto) Lymph # [place] # Baso # Seg Neutrophils % Seg Neuts % (Manual) Lymphocytes % (Manual) Monocytes % (Manual) Eosinophils % (Manual) Basophils % (Manual) Nucleated RBC % Seg Neutrophils # Seg Neutrophils # Man Lymphocytes # (Manual) Monocytes # (Manual) Eosinophils # (Manual) Basophils # (Manual) PT INR Fibrinogen dRVVT Confirm Interp Factor V Activity POC ABG pH POC ABG pCO2 POC ABG pO2 ABG pO2 ABG HCO3 ABG Base Excess ABG Hemoglobin Oxyhemoglobin Sodium Potassium Chloride Carbon Dioxide BUN Creatinine Glucose POC Glucose 157 H Lactic Acid 9.70 H* 9.10 H* Calcium Ionized Calcium Phosphorus Magnesium Direct Bilirubin AST ALT Alkaline Phosphatase Lactate Dehydrogenase Troponin T C-Reactive Protein Total Protein Albumin Prealbumin Triglycerides Cholesterol LDL Cholesterol Direct HDL Cholesterol 25-OH Vitamin D Total PTH Intact Urine pH Urine WBC (Auto) Urine Creatinine Urine Total Protein Fluid Total Protein Vancomycin Trough Rheumatoid Factor Complement C4 Miscellaneous Test Crossmatch 01/08/17 01/08/17 01/09/17 17:19 23:12 04:40 WBC RBC Hgb Hct MCV MCH MCHC RDW Plt Count Lymph % (Auto) [place] % (Auto) Lymph # [place] # Baso # Seg Neutrophils % Seg Neuts % (Manual) Lymphocytes % (Manual) Monocytes % (Manual) Eosinophils % (Manual) Basophils % (Manual) Nucleated RBC % Seg Neutrophils # Seg Neutrophils # Man Lymphocytes # (Manual) Monocytes # (Manual) Eosinophils # (Manual) Basophils # (Manual) PT INR Fibrinogen dRVVT Confirm Interp Factor V Activity POC ABG pH POC ABG pCO2 POC ABG pO2 ABG pO2 ABG HCO3 ABG Base Excess ABG Hemoglobin Oxyhemoglobin Sodium 147 H Potassium Chloride Carbon Dioxide BUN 82 H Creatinine 1.8 H Glucose 137 H POC Glucose 164 H 157 H Lactic Acid Calcium Ionized Calcium Phosphorus Magnesium Direct Bilirubin AST ALT Alkaline Phosphatase Lactate Dehydrogenase Troponin T C-Reactive Protein Total Protein Albumin Prealbumin Triglycerides Cholesterol LDL Cholesterol Direct HDL Cholesterol 25-OH Vitamin D Total PTH Intact Urine pH Urine WBC (Auto) Urine Creatinine Urine Total Protein Fluid Total Protein Vancomycin Trough Rheumatoid Factor Complement C4 Miscellaneous Test Crossmatch 01/09/17 01/09/17 01/09/17 05:42 08:22 10:57 WBC RBC Hgb Hct MCV MCH MCHC RDW Plt Count Lymph % (Auto) [place] % (Auto) Lymph # [place] # Baso # Seg Neutrophils % Seg Neuts % (Manual) Lymphocytes % (Manual) Monocytes % (Manual) Eosinophils % (Manual) Basophils % (Manual) Nucleated RBC % Seg Neutrophils # Seg Neutrophils # Man Lymphocytes # (Manual) Monocytes # (Manual) Eosinophils # (Manual) Basophils # (Manual) PT INR Fibrinogen dRVVT Confirm Interp Factor V Activity POC ABG pH POC ABG pCO2 POC ABG pO2 ABG pO2 ABG HCO3 ABG Base Excess ABG Hemoglobin Oxyhemoglobin Sodium Potassium Chloride Carbon Dioxide BUN Creatinine Glucose POC Glucose 156 H 122 H Lactic Acid 2.30 H* Calcium Ionized Calcium Phosphorus Magnesium Direct Bilirubin AST ALT Alkaline Phosphatase Lactate Dehydrogenase Troponin T C-Reactive Protein Total Protein Albumin Prealbumin Triglycerides Cholesterol LDL Cholesterol Direct HDL Cholesterol 25-OH Vitamin D Total PTH Intact Urine pH Urine WBC (Auto) Urine Creatinine Urine Total Protein Fluid Total Protein Vancomycin Trough Rheumatoid Factor Complement C4 Miscellaneous Test Crossmatch 01/09/17 01/09/17 01/09/17 13:30 17:14 18:45 WBC RBC Hgb Hct MCV MCH MCHC RDW Plt Count Lymph % (Auto) [place] % (Auto) Lymph # [place] # Baso # Seg Neutrophils % Seg Neuts % (Manual) Lymphocytes % (Manual) Monocytes % (Manual) Eosinophils % (Manual) Basophils % (Manual) Nucleated RBC % Seg Neutrophils # Seg Neutrophils # Man Lymphocytes # (Manual) Monocytes # (Manual) Eosinophils # (Manual) Basophils # (Manual) PT INR Fibrinogen dRVVT Confirm Interp Factor V Activity POC ABG pH POC ABG pCO2 POC ABG pO2 ABG pO2 ABG HCO3 ABG Base Excess ABG Hemoglobin Oxyhemoglobin Sodium Potassium Chloride Carbon Dioxide BUN Creatinine Glucose POC Glucose 127 H Lactic Acid Calcium Ionized Calcium Phosphorus Magnesium Direct Bilirubin AST ALT Alkaline Phosphatase Lactate Dehydrogenase Troponin T C-Reactive Protein 24.70 H Total Protein Albumin Prealbumin Triglycerides Cholesterol LDL Cholesterol Direct HDL Cholesterol 25-OH Vitamin D Total PTH Intact Urine pH Urine WBC (Auto) Urine Creatinine Urine Total Protein Fluid Total Protein Vancomycin Trough Rheumatoid Factor Complement C4 Miscellaneous Test Flexitest 1 H Crossmatch 01/10/17 01/10/17 01/10/17 01:21 04:00 04:00 WBC 18.1 H RBC 3.22 L Hgb 8.8 L Hct 27.0 L D MCV MCH 27 L MCHC RDW 17.0 H Plt Count Lymph % (Auto) [place] % (Auto) Lymph # [place] # Baso # Seg Neutrophils % Seg Neuts % (Manual) Lymphocytes % (Manual) Monocytes % (Manual) Eosinophils % (Manual) Basophils % (Manual) Nucleated RBC % Seg Neutrophils # Seg Neutrophils # Man Lymphocytes # (Manual) Monocytes # (Manual) Eosinophils # (Manual) Basophils # (Manual) PT INR Fibrinogen dRVVT Confirm Interp Factor V Activity POC ABG pH POC ABG pCO2 POC ABG pO2 ABG pO2 ABG HCO3 ABG Base Excess ABG Hemoglobin Oxyhemoglobin Sodium Potassium Chloride Carbon Dioxide BUN 59 H Creatinine 1.3 H Glucose 122 H POC Glucose 160 H Lactic Acid Calcium Ionized Calcium Phosphorus Magnesium Direct Bilirubin AST ALT Alkaline Phosphatase Lactate Dehydrogenase Troponin T C-Reactive Protein Total Protein Albumin Prealbumin Triglycerides Cholesterol LDL Cholesterol Direct HDL Cholesterol 25-OH Vitamin D Total PTH Intact Urine pH Urine WBC (Auto) Urine Creatinine Urine Total Protein Fluid Total Protein Vancomycin Trough Rheumatoid Factor Complement C4 Miscellaneous Test Crossmatch 01/10/17 01/10/17 01/10/17 05:36 12:14 17:55 WBC RBC Hgb Hct MCV MCH MCHC RDW Plt Count Lymph % (Auto) [place] % (Auto) Lymph # [place] # Baso # Seg Neutrophils % Seg Neuts % (Manual) Lymphocytes % (Manual) Monocytes % (Manual) Eosinophils % (Manual) Basophils % (Manual) Nucleated RBC % Seg Neutrophils # Seg Neutrophils # Man Lymphocytes # (Manual) Monocytes # (Manual) Eosinophils # (Manual) Basophils # (Manual) PT INR Fibrinogen dRVVT Confirm Interp Factor V Activity POC ABG pH POC ABG pCO2 POC ABG pO2 ABG pO2 ABG HCO3 ABG Base Excess ABG Hemoglobin Oxyhemoglobin Sodium Potassium Chloride Carbon Dioxide BUN Creatinine Glucose POC Glucose 163 H 120 H 144 H Lactic Acid Calcium Ionized Calcium Phosphorus Magnesium Direct Bilirubin AST ALT Alkaline Phosphatase Lactate Dehydrogenase Troponin T C-Reactive Protein Total Protein Albumin Prealbumin Triglycerides Cholesterol LDL Cholesterol Direct HDL Cholesterol 25-OH Vitamin D Total PTH Intact Urine pH Urine WBC (Auto) Urine Creatinine Urine Total Protein Fluid Total Protein Vancomycin Trough Rheumatoid Factor Complement C4 Miscellaneous Test Crossmatch 01/11/17 01/11/17 01/11/17 00:09 04:00 04:00 WBC 15.8 H RBC 3.04 L Hgb 8.2 L Hct 25.5 L MCV MCH 27 L MCHC RDW 17.3 H Plt Count Lymph % (Auto) [place] % (Auto) Lymph # [place] # Baso # Seg Neutrophils % Seg Neuts % (Manual) Lymphocytes % (Manual) Monocytes % (Manual) Eosinophils % (Manual) Basophils % (Manual) Nucleated RBC % Seg Neutrophils # Seg Neutrophils # Man Lymphocytes # (Manual) Monocytes # (Manual) Eosinophils # (Manual) Basophils # (Manual) PT INR Fibrinogen dRVVT Confirm Interp Factor V Activity POC ABG pH POC ABG pCO2 POC ABG pO2 ABG pO2 ABG HCO3 ABG Base Excess ABG Hemoglobin Oxyhemoglobin Sodium Potassium Chloride Carbon Dioxide BUN 78 H Creatinine 1.6 H Glucose 109 H POC Glucose 122 H Lactic Acid Calcium Ionized Calcium Phosphorus Magnesium Direct Bilirubin AST ALT Alkaline Phosphatase Lactate Dehydrogenase Troponin T C-Reactive Protein Total Protein Albumin Prealbumin Triglycerides Cholesterol LDL Cholesterol Direct HDL Cholesterol 25-OH Vitamin D Total PTH Intact Urine pH Urine WBC (Auto) Urine Creatinine Urine Total Protein Fluid Total Protein Vancomycin Trough Rheumatoid Factor Complement C4 Miscellaneous Test Crossmatch 01/11/17 01/11/17 01/11/17 12:46 18:23 23:42 WBC RBC Hgb Hct MCV MCH MCHC RDW Plt Count Lymph % (Auto) [place] % (Auto) Lymph # [place] # Baso # Seg Neutrophils % Seg Neuts % (Manual) Lymphocytes % (Manual) Monocytes % (Manual) Eosinophils % (Manual) Basophils % (Manual) Nucleated RBC % Seg Neutrophils # Seg Neutrophils # Man Lymphocytes # (Manual) Monocytes # (Manual) Eosinophils # (Manual) Basophils # (Manual) PT INR Fibrinogen dRVVT Confirm Interp Factor V Activity POC ABG pH POC ABG pCO2 POC ABG pO2 ABG pO2 ABG HCO3 ABG Base Excess ABG Hemoglobin Oxyhemoglobin Sodium Potassium Chloride Carbon Dioxide BUN Creatinine Glucose POC Glucose 148 H 125 H 124 H Lactic Acid Calcium Ionized Calcium Phosphorus Magnesium Direct Bilirubin AST ALT Alkaline Phosphatase Lactate Dehydrogenase Troponin T C-Reactive Protein Total Protein Albumin Prealbumin Triglycerides Cholesterol LDL Cholesterol Direct HDL Cholesterol 25-OH Vitamin D Total PTH Intact Urine pH Urine WBC (Auto) Urine Creatinine Urine Total Protein Fluid Total Protein Vancomycin Trough Rheumatoid Factor Complement C4 Miscellaneous Test Crossmatch 01/12/17 01/12/17 01/12/17 04:30 04:30 05:47 WBC 15.8 H RBC 3.31 L Hgb 8.9 L Hct 27.9 L MCV MCH 27 L MCHC RDW 17.4 H Plt Count Lymph % (Auto) [place] % (Auto) Lymph # [place] # Baso # Seg Neutrophils % Seg Neuts % (Manual) Lymphocytes % (Manual) Monocytes % (Manual) Eosinophils % (Manual) Basophils % (Manual) Nucleated RBC % Seg Neutrophils # Seg Neutrophils # Man Lymphocytes # (Manual) Monocytes # (Manual) Eosinophils # (Manual) Basophils # (Manual) PT INR Fibrinogen dRVVT Confirm Interp Factor V Activity POC ABG pH POC ABG pCO2 POC ABG pO2 ABG pO2 ABG HCO3 ABG Base Excess ABG Hemoglobin Oxyhemoglobin Sodium Potassium Chloride Carbon Dioxide BUN 57 H Creatinine Glucose 121 H POC Glucose 110 H Lactic Acid Calcium Ionized Calcium Phosphorus 2.10 L Magnesium Direct Bilirubin AST ALT Alkaline Phosphatase Lactate Dehydrogenase Troponin T C-Reactive Protein Total Protein Albumin Prealbumin Triglycerides Cholesterol LDL Cholesterol Direct HDL Cholesterol 25-OH Vitamin D Total PTH Intact Urine pH Urine WBC (Auto) Urine Creatinine Urine Total Protein Fluid Total Protein Vancomycin Trough Rheumatoid Factor Complement C4 Miscellaneous Test Crossmatch 01/12/17 01/12/17 01/12/17 11:35 17:45 23:14 WBC RBC Hgb Hct MCV MCH MCHC RDW Plt Count Lymph % (Auto) [place] % (Auto) Lymph # [place] # Baso # Seg Neutrophils % Seg Neuts % (Manual) Lymphocytes % (Manual) Monocytes % (Manual) Eosinophils % (Manual) Basophils % (Manual) Nucleated RBC % Seg Neutrophils # Seg Neutrophils # Man Lymphocytes # (Manual) Monocytes # (Manual) Eosinophils # (Manual) Basophils # (Manual) PT INR Fibrinogen dRVVT Confirm Interp Factor V Activity POC ABG pH POC ABG pCO2 POC ABG pO2 ABG pO2 ABG HCO3 ABG Base Excess ABG Hemoglobin Oxyhemoglobin Sodium Potassium Chloride Carbon Dioxide BUN Creatinine Glucose POC Glucose 146 H 117 H 123 H Lactic Acid Calcium Ionized Calcium Phosphorus Magnesium Direct Bilirubin AST ALT Alkaline Phosphatase Lactate Dehydrogenase Troponin T C-Reactive Protein Total Protein Albumin Prealbumin Triglycerides Cholesterol LDL Cholesterol Direct HDL Cholesterol 25-OH Vitamin D Total PTH Intact Urine pH Urine WBC (Auto) Urine Creatinine Urine Total Protein Fluid Total Protein Vancomycin Trough Rheumatoid Factor Complement C4 Miscellaneous Test Crossmatch 01/13/17 01/13/17 01/13/17 05:32 06:00 12:10 WBC RBC Hgb Hct MCV MCH MCHC RDW Plt Count Lymph % (Auto) [place] % (Auto) Lymph # [place] # Baso # Seg Neutrophils % Seg Neuts % (Manual) Lymphocytes % (Manual) Monocytes % (Manual) Eosinophils % (Manual) Basophils % (Manual) Nucleated RBC % Seg Neutrophils # Seg Neutrophils # Man Lymphocytes # (Manual) Monocytes # (Manual) Eosinophils # (Manual) Basophils # (Manual) PT INR Fibrinogen dRVVT Confirm Interp Factor V Activity POC ABG pH POC ABG pCO2 POC ABG pO2 ABG pO2 ABG HCO3 ABG Base Excess ABG Hemoglobin Oxyhemoglobin Sodium Potassium Chloride Carbon Dioxide BUN 80 H Creatinine 1.4 H Glucose 106 H POC Glucose 106 H Lactic Acid Calcium Ionized Calcium Phosphorus Magnesium Direct Bilirubin AST ALT Alkaline Phosphatase Lactate Dehydrogenase Troponin T C-Reactive Protein Total Protein Albumin Prealbumin Triglycerides Cholesterol LDL Cholesterol Direct HDL Cholesterol 25-OH Vitamin D Total PTH Intact Urine pH Urine WBC (Auto) Urine Creatinine Urine Total Protein Fluid Total Protein 3.0 L Vancomycin Trough Rheumatoid Factor Complement C4 Miscellaneous Test Crossmatch 01/13/17 01/13/17 01/13/17 12:17 15:50 17:30 WBC RBC Hgb Hct MCV MCH MCHC RDW Plt Count Lymph % (Auto) [place] % (Auto) Lymph # [place] # Baso # Seg Neutrophils % Seg Neuts % (Manual) Lymphocytes % (Manual) Monocytes % (Manual) Eosinophils % (Manual) Basophils % (Manual) Nucleated RBC % Seg Neutrophils # Seg Neutrophils # Man Lymphocytes # (Manual) Monocytes # (Manual) Eosinophils # (Manual) Basophils # (Manual) PT 15.4 H INR 1.16 H Fibrinogen dRVVT Confirm Interp Factor V Activity POC ABG pH POC ABG pCO2 POC ABG pO2 ABG pO2 ABG HCO3 ABG Base Excess ABG Hemoglobin Oxyhemoglobin Sodium Potassium Chloride Carbon Dioxide BUN Creatinine Glucose POC Glucose 168 H 110 H Lactic Acid Calcium Ionized Calcium Phosphorus Magnesium Direct Bilirubin AST ALT Alkaline Phosphatase Lactate Dehydrogenase Troponin T C-Reactive Protein Total Protein Albumin Prealbumin Triglycerides Cholesterol LDL Cholesterol Direct HDL Cholesterol 25-OH Vitamin D Total PTH Intact Urine pH Urine WBC (Auto) Urine Creatinine Urine Total Protein Fluid Total Protein Vancomycin Trough Rheumatoid Factor Complement C4 Miscellaneous Test Crossmatch 01/13/17 01/14/17 01/14/17 23:42 05:24 05:30 WBC RBC Hgb Hct MCV MCH MCHC RDW Plt Count Lymph % (Auto) [place] % (Auto) Lymph # [place] # Baso # Seg Neutrophils % Seg Neuts % (Manual) Lymphocytes % (Manual) Monocytes % (Manual) Eosinophils % (Manual) Basophils % (Manual) Nucleated RBC % Seg Neutrophils # Seg Neutrophils # Man Lymphocytes # (Manual) Monocytes # (Manual) Eosinophils # (Manual) Basophils # (Manual) PT INR Fibrinogen dRVVT Confirm Interp Factor V Activity POC ABG pH POC ABG pCO2 POC ABG pO2 ABG pO2 ABG HCO3 ABG Base Excess ABG Hemoglobin Oxyhemoglobin Sodium Potassium Chloride Carbon Dioxide BUN 58 H Creatinine Glucose 114 H POC Glucose 155 H 121 H Lactic Acid Calcium Ionized Calcium Phosphorus Magnesium Direct Bilirubin AST ALT Alkaline Phosphatase Lactate Dehydrogenase Troponin T C-Reactive Protein Total Protein Albumin Prealbumin Triglycerides Cholesterol LDL Cholesterol Direct HDL Cholesterol 25-OH Vitamin D Total PTH Intact Urine pH Urine WBC (Auto) Urine Creatinine Urine Total Protein Fluid Total Protein Vancomycin Trough Rheumatoid Factor Complement C4 Miscellaneous Test Crossmatch 01/14/17 01/14/17 01/15/17 12:48 17:36 00:15 WBC RBC Hgb Hct MCV MCH MCHC RDW Plt Count Lymph % (Auto) [place] % (Auto) Lymph # [place] # Baso # Seg Neutrophils % Seg Neuts % (Manual) Lymphocytes % (Manual) Monocytes % (Manual) Eosinophils % (Manual) Basophils % (Manual) Nucleated RBC % Seg Neutrophils # Seg Neutrophils # Man Lymphocytes # (Manual) Monocytes # (Manual) Eosinophils # (Manual) Basophils # (Manual) PT INR Fibrinogen dRVVT Confirm Interp Factor V Activity POC ABG pH POC ABG pCO2 POC ABG pO2 ABG pO2 ABG HCO3 ABG Base Excess ABG Hemoglobin Oxyhemoglobin Sodium Potassium Chloride Carbon Dioxide BUN Creatinine Glucose POC Glucose 130 H 135 H 132 H Lactic Acid Calcium Ionized Calcium Phosphorus Magnesium Direct Bilirubin AST ALT Alkaline Phosphatase Lactate Dehydrogenase Troponin T C-Reactive Protein Total Protein Albumin Prealbumin Triglycerides Cholesterol LDL Cholesterol Direct HDL Cholesterol 25-OH Vitamin D Total PTH Intact Urine pH Urine WBC (Auto) Urine Creatinine Urine Total Protein Fluid Total Protein Vancomycin Trough Rheumatoid Factor Complement C4 Miscellaneous Test Crossmatch 01/15/17 01/15/17 01/15/17 05:01 11:55 12:45 WBC 16.2 H RBC 3.00 L Hgb 8.1 L Hct 25.4 L MCV MCH 27 L MCHC RDW 17.6 H Plt Count Lymph % (Auto) 11.7 L [place] % (Auto) 7.8 H Lymph # [place] # 1.3 H Baso # Seg Neutrophils % 80.1 H Seg Neuts % (Manual) Lymphocytes % (Manual) Monocytes % (Manual) Eosinophils % (Manual) Basophils % (Manual) Nucleated RBC % Seg Neutrophils # 13.0 H Seg Neutrophils # Man Lymphocytes # (Manual) Monocytes # (Manual) Eosinophils # (Manual) Basophils # (Manual) PT INR Fibrinogen dRVVT Confirm Interp Factor V Activity POC ABG pH POC ABG pCO2 POC ABG pO2 ABG pO2 ABG HCO3 ABG Base Excess ABG Hemoglobin Oxyhemoglobin Sodium Potassium Chloride Carbon Dioxide BUN Creatinine Glucose POC Glucose 126 H 125 H Lactic Acid Calcium Ionized Calcium Phosphorus Magnesium Direct Bilirubin AST ALT Alkaline Phosphatase Lactate Dehydrogenase Troponin T C-Reactive Protein Total Protein Albumin Prealbumin Triglycerides Cholesterol LDL Cholesterol Direct HDL Cholesterol 25-OH Vitamin D Total PTH Intact Urine pH Urine WBC (Auto) Urine Creatinine Urine Total Protein Fluid Total Protein Vancomycin Trough Rheumatoid Factor Complement C4 Miscellaneous Test Crossmatch 01/15/17 01/15/17 01/15/17 12:45 17:31 23:39 WBC RBC Hgb Hct MCV MCH MCHC RDW Plt Count Lymph % (Auto) [place] % (Auto) Lymph # [place] # Baso # Seg Neutrophils % Seg Neuts % (Manual) Lymphocytes % (Manual) Monocytes % (Manual) Eosinophils % (Manual) Basophils % (Manual) Nucleated RBC % Seg Neutrophils # Seg Neutrophils # Man Lymphocytes # (Manual) Monocytes # (Manual) Eosinophils # (Manual) Basophils # (Manual) PT INR Fibrinogen dRVVT Confirm Interp Factor V Activity POC ABG pH POC ABG pCO2 POC ABG pO2 ABG pO2 ABG HCO3 ABG Base Excess ABG Hemoglobin Oxyhemoglobin Sodium 136 L Potassium Chloride Carbon Dioxide BUN 87 H Creatinine 1.7 H Glucose 108 H POC Glucose 129 H 112 H Lactic Acid Calcium Ionized Calcium Phosphorus Magnesium Direct Bilirubin AST ALT Alkaline Phosphatase Lactate Dehydrogenase Troponin T C-Reactive Protein Total Protein Albumin Prealbumin Triglycerides Cholesterol LDL Cholesterol Direct HDL Cholesterol 25-OH Vitamin D Total PTH Intact Urine pH Urine WBC (Auto) Urine Creatinine Urine Total Protein Fluid Total Protein Vancomycin Trough Rheumatoid Factor Complement C4 Miscellaneous Test Crossmatch 01/16/17 01/16/17 01/16/17 05:23 11:42 12:32 WBC RBC Hgb Hct MCV MCH MCHC RDW Plt Count Lymph % (Auto) [place] % (Auto) Lymph # [place] # Baso # Seg Neutrophils % Seg Neuts % (Manual) Lymphocytes % (Manual) Monocytes % (Manual) Eosinophils % (Manual) Basophils % (Manual) Nucleated RBC % Seg Neutrophils # Seg Neutrophils # Man Lymphocytes # (Manual) Monocytes # (Manual) Eosinophils # (Manual) Basophils # (Manual) PT INR Fibrinogen dRVVT Confirm Interp Factor V Activity POC ABG pH 7.499 H POC ABG pCO2 30.9 L POC ABG pO2 51 L ABG pO2 ABG HCO3 ABG Base Excess ABG Hemoglobin Oxyhemoglobin Sodium Potassium Chloride Carbon Dioxide BUN Creatinine Glucose POC Glucose 118 H 133 H Lactic Acid Calcium Ionized Calcium Phosphorus Magnesium Direct Bilirubin AST ALT Alkaline Phosphatase Lactate Dehydrogenase Troponin T C-Reactive Protein Total Protein Albumin Prealbumin Triglycerides Cholesterol LDL Cholesterol Direct HDL Cholesterol 25-OH Vitamin D Total PTH Intact Urine pH Urine WBC (Auto) Urine Creatinine Urine Total Protein Fluid Total Protein Vancomycin Trough Rheumatoid Factor Complement C4 Miscellaneous Test Crossmatch 01/16/17 01/16/17 01/16/17 17:52 23:57 Unknown WBC RBC Hgb Hct MCV MCH MCHC RDW Plt Count Lymph % (Auto) [place] % (Auto) Lymph # [place] # Baso # Seg Neutrophils % Seg Neuts % (Manual) Lymphocytes % (Manual) Monocytes % (Manual) Eosinophils % (Manual) Basophils % (Manual) Nucleated RBC % Seg Neutrophils # Seg Neutrophils # Man Lymphocytes # (Manual) Monocytes # (Manual) Eosinophils # (Manual) Basophils # (Manual) PT INR Fibrinogen dRVVT Confirm Interp Factor V Activity POC ABG pH POC ABG pCO2 POC ABG pO2 ABG pO2 ABG HCO3 ABG Base Excess ABG Hemoglobin Oxyhemoglobin Sodium 135 L Potassium Chloride Carbon Dioxide BUN 101 H Creatinine 1.8 H Glucose 117 H POC Glucose 130 H 143 H Lactic Acid Calcium Ionized Calcium Phosphorus 5.80 H Magnesium Direct Bilirubin AST ALT Alkaline Phosphatase Lactate Dehydrogenase Troponin T C-Reactive Protein Total Protein Albumin Prealbumin Triglycerides Cholesterol LDL Cholesterol Direct HDL Cholesterol 25-OH Vitamin D Total PTH Intact Urine pH Urine WBC (Auto) Urine Creatinine Urine Total Protein Fluid Total Protein Vancomycin Trough Rheumatoid Factor Complement C4 Miscellaneous Test Crossmatch 01/17/17 01/17/17 01/17/17 05:30 05:46 11:49 WBC RBC Hgb Hct MCV MCH MCHC RDW Plt Count Lymph % (Auto) [place] % (Auto) Lymph # [place] # Baso # Seg Neutrophils % Seg Neuts % (Manual) Lymphocytes % (Manual) Monocytes % (Manual) Eosinophils % (Manual) Basophils % (Manual) Nucleated RBC % Seg Neutrophils # Seg Neutrophils # Man Lymphocytes # (Manual) Monocytes # (Manual) Eosinophils # (Manual) Basophils # (Manual) PT INR Fibrinogen dRVVT Confirm Interp Factor V Activity POC ABG pH POC ABG pCO2 POC ABG pO2 ABG pO2 ABG HCO3 ABG Base Excess ABG Hemoglobin Oxyhemoglobin Sodium 134 L Potassium Chloride 95.8 L Carbon Dioxide BUN 66 H Creatinine 1.3 H Glucose 138 H POC Glucose 147 H 124 H Lactic Acid Calcium Ionized Calcium Phosphorus Magnesium Direct Bilirubin AST ALT Alkaline Phosphatase 254 H Lactate Dehydrogenase Troponin T C-Reactive Protein Total Protein Albumin 1.3 L Prealbumin Triglycerides Cholesterol LDL Cholesterol Direct HDL Cholesterol 25-OH Vitamin D Total PTH Intact Urine pH Urine WBC (Auto) Urine Creatinine Urine Total Protein Fluid Total Protein Vancomycin Trough Rheumatoid Factor Complement C4 Miscellaneous Test Crossmatch 01/17/17 01/17/17 01/18/17 17:30 23:41 05:15 WBC RBC Hgb Hct MCV MCH MCHC RDW Plt Count Lymph % (Auto) [place] % (Auto) Lymph # [place] # Baso # Seg Neutrophils % Seg Neuts % (Manual) Lymphocytes % (Manual) Monocytes % (Manual) Eosinophils % (Manual) Basophils % (Manual) Nucleated RBC % Seg Neutrophils # Seg Neutrophils # Man Lymphocytes # (Manual) Monocytes # (Manual) Eosinophils # (Manual) Basophils # (Manual) PT INR Fibrinogen dRVVT Confirm Interp Factor V Activity POC ABG pH POC ABG pCO2 POC ABG pO2 ABG pO2 ABG HCO3 ABG Base Excess ABG Hemoglobin Oxyhemoglobin Sodium Potassium Chloride Carbon Dioxide BUN 89 H Creatinine 1.7 H Glucose 118 H POC Glucose 137 H 119 H Lactic Acid Calcium Ionized Calcium Phosphorus Magnesium Direct Bilirubin AST ALT Alkaline Phosphatase Lactate Dehydrogenase Troponin T C-Reactive Protein Total Protein Albumin Prealbumin Triglycerides Cholesterol LDL Cholesterol Direct HDL Cholesterol 25-OH Vitamin D Total PTH Intact Urine pH Urine WBC (Auto) Urine Creatinine Urine Total Protein Fluid Total Protein Vancomycin Trough Rheumatoid Factor Complement C4 Miscellaneous Test Crossmatch 01/18/17 01/18/17 01/18/17 05:19 12:16 18:11 WBC RBC Hgb Hct MCV MCH MCHC RDW Plt Count Lymph % (Auto) [place] % (Auto) Lymph # [place] # Baso # Seg Neutrophils % Seg Neuts % (Manual) Lymphocytes % (Manual) Monocytes % (Manual) Eosinophils % (Manual) Basophils % (Manual) Nucleated RBC % Seg Neutrophils # Seg Neutrophils # Man Lymphocytes # (Manual) Monocytes # (Manual) Eosinophils # (Manual) Basophils # (Manual) PT INR Fibrinogen dRVVT Confirm Interp Factor V Activity POC ABG pH POC ABG pCO2 POC ABG pO2 ABG pO2 ABG HCO3 ABG Base Excess ABG Hemoglobin Oxyhemoglobin Sodium Potassium Chloride Carbon Dioxide BUN Creatinine Glucose POC Glucose 134 H 188 H 113 H Lactic Acid Calcium Ionized Calcium Phosphorus Magnesium Direct Bilirubin AST ALT Alkaline Phosphatase Lactate Dehydrogenase Troponin T C-Reactive Protein Total Protein Albumin Prealbumin Triglycerides Cholesterol LDL Cholesterol Direct HDL Cholesterol 25-OH Vitamin D Total PTH Intact Urine pH Urine WBC (Auto) Urine Creatinine Urine Total Protein Fluid Total Protein Vancomycin Trough Rheumatoid Factor Complement C4 Miscellaneous Test Crossmatch 01/19/17 01/19/17 01/19/17 00:00 05:30 05:36 WBC RBC Hgb Hct MCV MCH MCHC RDW Plt Count Lymph % (Auto) [place] % (Auto) Lymph # [place] # Baso # Seg Neutrophils % Seg Neuts % (Manual) Lymphocytes % (Manual) Monocytes % (Manual) Eosinophils % (Manual) Basophils % (Manual) Nucleated RBC % Seg Neutrophils # Seg Neutrophils # Man Lymphocytes # (Manual) Monocytes # (Manual) Eosinophils # (Manual) Basophils # (Manual) PT INR Fibrinogen dRVVT Confirm Interp Factor V Activity POC ABG pH POC ABG pCO2 POC ABG pO2 ABG pO2 ABG HCO3 ABG Base Excess ABG Hemoglobin Oxyhemoglobin Sodium Potassium Chloride Carbon Dioxide BUN 70 H Creatinine 1.5 H Glucose 121 H POC Glucose 137 H 155 H Lactic Acid Calcium Ionized Calcium Phosphorus 2.10 L D Magnesium Direct Bilirubin AST ALT Alkaline Phosphatase Lactate Dehydrogenase Troponin T C-Reactive Protein Total Protein Albumin Prealbumin Triglycerides Cholesterol LDL Cholesterol Direct HDL Cholesterol 25-OH Vitamin D Total PTH Intact Urine pH Urine WBC (Auto) Urine Creatinine Urine Total Protein Fluid Total Protein Vancomycin Trough Rheumatoid Factor Complement C4 Miscellaneous Test Crossmatch 01/19/17 01/19/17 01/19/17 11:59 15:32 17:57 WBC RBC Hgb Hct MCV MCH MCHC RDW Plt Count Lymph % (Auto) [place] % (Auto) Lymph # [place] # Baso # Seg Neutrophils % Seg Neuts % (Manual) Lymphocytes % (Manual) Monocytes % (Manual) Eosinophils % (Manual) Basophils % (Manual) Nucleated RBC % Seg Neutrophils # Seg Neutrophils # Man Lymphocytes # (Manual) Monocytes # (Manual) Eosinophils # (Manual) Basophils # (Manual) PT INR Fibrinogen dRVVT Confirm Interp Factor V Activity POC ABG pH POC ABG pCO2 33.1 L POC ABG pO2 76 L ABG pO2 ABG HCO3 ABG Base Excess ABG Hemoglobin Oxyhemoglobin Sodium Potassium Chloride Carbon Dioxide BUN Creatinine Glucose POC Glucose 156 H 129 H Lactic Acid Calcium Ionized Calcium Phosphorus Magnesium Direct Bilirubin AST ALT Alkaline Phosphatase Lactate Dehydrogenase Troponin T C-Reactive Protein Total Protein Albumin Prealbumin Triglycerides Cholesterol LDL Cholesterol Direct HDL Cholesterol 25-OH Vitamin D Total PTH Intact Urine pH Urine WBC (Auto) Urine Creatinine Urine Total Protein Fluid Total Protein Vancomycin Trough Rheumatoid Factor Complement C4 Miscellaneous Test Crossmatch 01/19/17 01/20/17 01/20/17 23:49 04:00 05:21 WBC RBC Hgb Hct MCV MCH MCHC RDW Plt Count Lymph % (Auto) [place] % (Auto) Lymph # [place] # Baso # Seg Neutrophils % Seg Neuts % (Manual) Lymphocytes % (Manual) Monocytes % (Manual) Eosinophils % (Manual) Basophils % (Manual) Nucleated RBC % Seg Neutrophils # Seg Neutrophils # Man Lymphocytes # (Manual) Monocytes # (Manual) Eosinophils # (Manual) Basophils # (Manual) PT INR Fibrinogen dRVVT Confirm Interp Factor V Activity POC ABG pH POC ABG pCO2 POC ABG pO2 ABG pO2 ABG HCO3 ABG Base Excess ABG Hemoglobin Oxyhemoglobin Sodium Potassium Chloride Carbon Dioxide BUN 96 H Creatinine 1.9 H Glucose 106 H POC Glucose 125 H 130 H Lactic Acid Calcium Ionized Calcium Phosphorus 2.40 L Magnesium Direct Bilirubin AST ALT Alkaline Phosphatase Lactate Dehydrogenase Troponin T C-Reactive Protein Total Protein Albumin Prealbumin Triglycerides Cholesterol LDL Cholesterol Direct HDL Cholesterol 25-OH Vitamin D Total PTH Intact Urine pH Urine WBC (Auto) Urine Creatinine Urine Total Protein Fluid Total Protein Vancomycin Trough Rheumatoid Factor Complement C4 Miscellaneous Test Crossmatch 01/20/17 01/20/17 01/20/17 11:58 12:17 17:26 WBC RBC Hgb Hct MCV MCH MCHC RDW Plt Count Lymph % (Auto) [place] % (Auto) Lymph # [place] # Baso # Seg Neutrophils % Seg Neuts % (Manual) Lymphocytes % (Manual) Monocytes % (Manual) Eosinophils % (Manual) Basophils % (Manual) Nucleated RBC % Seg Neutrophils # Seg Neutrophils # Man Lymphocytes # (Manual) Monocytes # (Manual) Eosinophils # (Manual) Basophils # (Manual) PT INR Fibrinogen dRVVT Confirm Interp Factor V Activity POC ABG pH POC ABG pCO2 POC ABG pO2 70 L ABG pO2 ABG HCO3 ABG Base Excess ABG Hemoglobin Oxyhemoglobin Sodium Potassium Chloride Carbon Dioxide BUN Creatinine Glucose POC Glucose 118 H 154 H Lactic Acid Calcium Ionized Calcium Phosphorus Magnesium Direct Bilirubin AST ALT Alkaline Phosphatase Lactate Dehydrogenase Troponin T C-Reactive Protein Total Protein Albumin Prealbumin Triglycerides Cholesterol LDL Cholesterol Direct HDL Cholesterol 25-OH Vitamin D Total PTH Intact Urine pH Urine WBC (Auto) Urine Creatinine Urine Total Protein Fluid Total Protein Vancomycin Trough Rheumatoid Factor Complement C4 Miscellaneous Test Crossmatch 01/21/17 01/21/17 01/21/17 04:00 04:56 11:46 WBC RBC Hgb Hct MCV MCH MCHC RDW Plt Count Lymph % (Auto) [place] % (Auto) Lymph # [place] # Baso # Seg Neutrophils % Seg Neuts % (Manual) Lymphocytes % (Manual) Monocytes % (Manual) Eosinophils % (Manual) Basophils % (Manual) Nucleated RBC % Seg Neutrophils # Seg Neutrophils # Man Lymphocytes # (Manual) Monocytes # (Manual) Eosinophils # (Manual) Basophils # (Manual) PT INR Fibrinogen dRVVT Confirm Interp Factor V Activity POC ABG pH POC ABG pCO2 POC ABG pO2 ABG pO2 ABG HCO3 ABG Base Excess ABG Hemoglobin Oxyhemoglobin Sodium Potassium 3.5 L Chloride 97.4 L Carbon Dioxide BUN 66 H Creatinine 1.4 H Glucose POC Glucose 116 H 106 H Lactic Acid Calcium Ionized Calcium Phosphorus 2.10 L Magnesium Direct Bilirubin AST ALT Alkaline Phosphatase Lactate Dehydrogenase Troponin T C-Reactive Protein Total Protein Albumin Prealbumin Triglycerides Cholesterol LDL Cholesterol Direct HDL Cholesterol 25-OH Vitamin D Total PTH Intact Urine pH Urine WBC (Auto) Urine Creatinine Urine Total Protein Fluid Total Protein Vancomycin Trough Rheumatoid Factor Complement C4 Miscellaneous Test Crossmatch 01/21/17 01/21/17 01/22/17 17:25 23:49 05:35 WBC RBC Hgb Hct MCV MCH MCHC RDW Plt Count Lymph % (Auto) [place] % (Auto) Lymph # [place] # Baso # Seg Neutrophils % Seg Neuts % (Manual) Lymphocytes % (Manual) Monocytes % (Manual) Eosinophils % (Manual) Basophils % (Manual) Nucleated RBC % Seg Neutrophils # Seg Neutrophils # Man Lymphocytes # (Manual) Monocytes # (Manual) Eosinophils # (Manual) Basophils # (Manual) PT INR Fibrinogen dRVVT Confirm Interp Factor V Activity POC ABG pH POC ABG pCO2 POC ABG pO2 ABG pO2 ABG HCO3 ABG Base Excess ABG Hemoglobin Oxyhemoglobin Sodium Potassium Chloride Carbon Dioxide BUN Creatinine Glucose POC Glucose 106 H 133 H 107 H Lactic Acid Calcium Ionized Calcium Phosphorus Magnesium Direct Bilirubin AST ALT Alkaline Phosphatase Lactate Dehydrogenase Troponin T C-Reactive Protein Total Protein Albumin Prealbumin Triglycerides Cholesterol LDL Cholesterol Direct HDL Cholesterol 25-OH Vitamin D Total PTH Intact Urine pH Urine WBC (Auto) Urine Creatinine Urine Total Protein Fluid Total Protein Vancomycin Trough Rheumatoid Factor Complement C4 Miscellaneous Test Crossmatch 01/22/17 01/22/17 01/22/17 07:20 07:20 11:31 WBC RBC 2.75 L Hgb 7.5 L Hct 22.7 L MCV MCH 27 L MCHC RDW 17.5 H Plt Count Lymph % (Auto) [place] % (Auto) Lymph # [place] # Baso # Seg Neutrophils % Seg Neuts % (Manual) Lymphocytes % (Manual) Monocytes % (Manual) Eosinophils % (Manual) Basophils % (Manual) Nucleated RBC % Seg Neutrophils # Seg Neutrophils # Man Lymphocytes # (Manual) Monocytes # (Manual) Eosinophils # (Manual) Basophils # (Manual) PT INR Fibrinogen dRVVT Confirm Interp Factor V Activity POC ABG pH POC ABG pCO2 POC ABG pO2 ABG pO2 ABG HCO3 ABG Base Excess ABG Hemoglobin Oxyhemoglobin Sodium Potassium 3.3 L Chloride Carbon Dioxide BUN 42 H Creatinine Glucose 105 H POC Glucose 124 H Lactic Acid Calcium Ionized Calcium Phosphorus 1.70 L Magnesium Direct Bilirubin AST ALT Alkaline Phosphatase Lactate Dehydrogenase Troponin T C-Reactive Protein Total Protein Albumin Prealbumin Triglycerides Cholesterol LDL Cholesterol Direct HDL Cholesterol 25-OH Vitamin D Total PTH Intact Urine pH Urine WBC (Auto) Urine Creatinine Urine Total Protein Fluid Total Protein Vancomycin Trough Rheumatoid Factor Complement C4 Miscellaneous Test Crossmatch 01/22/17 01/22/17 01/23/17 17:16 23:35 05:35 WBC RBC Hgb Hct MCV MCH MCHC RDW Plt Count Lymph % (Auto) [place] % (Auto) Lymph # [place] # Baso # Seg Neutrophils % Seg Neuts % (Manual) Lymphocytes % (Manual) Monocytes % (Manual) Eosinophils % (Manual) Basophils % (Manual) Nucleated RBC % Seg Neutrophils # Seg Neutrophils # Man Lymphocytes # (Manual) Monocytes # (Manual) Eosinophils # (Manual) Basophils # (Manual) PT INR Fibrinogen dRVVT Confirm Interp Factor V Activity POC ABG pH POC ABG pCO2 POC ABG pO2 ABG pO2 ABG HCO3 ABG Base Excess ABG Hemoglobin Oxyhemoglobin Sodium Potassium Chloride Carbon Dioxide BUN Creatinine Glucose POC Glucose 135 H 120 H 111 H Lactic Acid Calcium Ionized Calcium Phosphorus Magnesium Direct Bilirubin AST ALT Alkaline Phosphatase Lactate Dehydrogenase Troponin T C-Reactive Protein Total Protein Albumin Prealbumin Triglycerides Cholesterol LDL Cholesterol Direct HDL Cholesterol 25-OH Vitamin D Total PTH Intact Urine pH Urine WBC (Auto) Urine Creatinine Urine Total Protein Fluid Total Protein Vancomycin Trough Rheumatoid Factor Complement C4 Miscellaneous Test Crossmatch 01/23/17 01/23/17 01/23/17 06:10 17:27 23:44 WBC RBC Hgb Hct MCV MCH MCHC RDW Plt Count Lymph % (Auto) [place] % (Auto) Lymph # [place] # Baso # Seg Neutrophils % Seg Neuts % (Manual) Lymphocytes % (Manual) Monocytes % (Manual) Eosinophils % (Manual) Basophils % (Manual) Nucleated RBC % Seg Neutrophils # Seg Neutrophils # Man Lymphocytes # (Manual) Monocytes # (Manual) Eosinophils # (Manual) Basophils # (Manual) PT INR Fibrinogen dRVVT Confirm Interp Factor V Activity POC ABG pH POC ABG pCO2 POC ABG pO2 ABG pO2 ABG HCO3 ABG Base Excess ABG Hemoglobin Oxyhemoglobin Sodium Potassium 3.3 L Chloride Carbon Dioxide BUN 66 H Creatinine 1.3 H Glucose 109 H POC Glucose 120 H 115 H Lactic Acid Calcium Ionized Calcium Phosphorus 2.20 L D Magnesium Direct Bilirubin AST ALT Alkaline Phosphatase Lactate Dehydrogenase Troponin T C-Reactive Protein Total Protein Albumin Prealbumin Triglycerides Cholesterol LDL Cholesterol Direct HDL Cholesterol 25-OH Vitamin D Total PTH Intact Urine pH Urine WBC (Auto) Urine Creatinine Urine Total Protein Fluid Total Protein Vancomycin Trough Rheumatoid Factor Complement C4 Miscellaneous Test Crossmatch 01/24/17 01/24/17 01/24/17 05:19 05:50 12:19 WBC RBC Hgb Hct MCV MCH MCHC RDW Plt Count Lymph % (Auto) [place] % (Auto) Lymph # [place] # Baso # Seg Neutrophils % Seg Neuts % (Manual) Lymphocytes % (Manual) Monocytes % (Manual) Eosinophils % (Manual) Basophils % (Manual) Nucleated RBC % Seg Neutrophils # Seg Neutrophils # Man Lymphocytes # (Manual) Monocytes # (Manual) Eosinophils # (Manual) Basophils # (Manual) PT INR Fibrinogen dRVVT Confirm Interp Factor V Activity POC ABG pH POC ABG pCO2 POC ABG pO2 ABG pO2 ABG HCO3 ABG Base Excess ABG Hemoglobin Oxyhemoglobin Sodium Potassium Chloride Carbon Dioxide BUN 47 H Creatinine Glucose 117 H POC Glucose 126 H 119 H Lactic Acid Calcium Ionized Calcium Phosphorus 2.30 L Magnesium 1.60 L Direct Bilirubin AST ALT Alkaline Phosphatase Lactate Dehydrogenase Troponin T C-Reactive Protein Total Protein Albumin Prealbumin Triglycerides Cholesterol LDL Cholesterol Direct HDL Cholesterol 25-OH Vitamin D Total PTH Intact Urine pH Urine WBC (Auto) Urine Creatinine Urine Total Protein Fluid Total Protein Vancomycin Trough Rheumatoid Factor Complement C4 Miscellaneous Test Crossmatch 01/24/17 01/25/17 01/25/17 17:08 00:37 04:00 WBC RBC Hgb Hct MCV MCH MCHC RDW Plt Count Lymph % (Auto) [place] % (Auto) Lymph # [place] # Baso # Seg Neutrophils % Seg Neuts % (Manual) Lymphocytes % (Manual) Monocytes % (Manual) Eosinophils % (Manual) Basophils % (Manual) Nucleated RBC % Seg Neutrophils # Seg Neutrophils # Man Lymphocytes # (Manual) Monocytes # (Manual) Eosinophils # (Manual) Basophils # (Manual) PT INR Fibrinogen dRVVT Confirm Interp Factor V Activity POC ABG pH POC ABG pCO2 POC ABG pO2 ABG pO2 ABG HCO3 ABG Base Excess ABG Hemoglobin Oxyhemoglobin Sodium Potassium Chloride Carbon Dioxide BUN 72 H Creatinine 1.3 H Glucose POC Glucose 127 H 110 H Lactic Acid Calcium Ionized Calcium Phosphorus Magnesium Direct Bilirubin AST ALT Alkaline Phosphatase Lactate Dehydrogenase Troponin T C-Reactive Protein Total Protein Albumin Prealbumin Triglycerides Cholesterol LDL Cholesterol Direct HDL Cholesterol 25-OH Vitamin D Total PTH Intact Urine pH Urine WBC (Auto) Urine Creatinine Urine Total Protein Fluid Total Protein Vancomycin Trough Rheumatoid Factor Complement C4 Miscellaneous Test Crossmatch 01/25/17 01/25/17 01/25/17 04:00 11:15 13:05 WBC RBC 2.49 L Hgb 6.7 L Hct 20.9 L MCV MCH 27 L MCHC RDW 18.8 H Plt Count Lymph % (Auto) [place] % (Auto) 10.1 H Lymph # [place] # 1.0 H Baso # Seg Neutrophils % Seg Neuts % (Manual) Lymphocytes % (Manual) Monocytes % (Manual) Eosinophils % (Manual) Basophils % (Manual) Nucleated RBC % Seg Neutrophils # Seg Neutrophils # Man Lymphocytes # (Manual) Monocytes # (Manual) Eosinophils # (Manual) Basophils # (Manual) PT INR Fibrinogen dRVVT Confirm Interp Factor V Activity POC ABG pH POC ABG pCO2 POC ABG pO2 ABG pO2 ABG HCO3 ABG Base Excess ABG Hemoglobin Oxyhemoglobin Sodium Potassium Chloride Carbon Dioxide BUN Creatinine Glucose POC Glucose 128 H Lactic Acid Calcium Ionized Calcium Phosphorus Magnesium Direct Bilirubin AST ALT Alkaline Phosphatase Lactate Dehydrogenase Troponin T C-Reactive Protein Total Protein Albumin Prealbumin Triglycerides Cholesterol LDL Cholesterol Direct HDL Cholesterol 25-OH Vitamin D Total PTH Intact Urine pH Urine WBC (Auto) Urine Creatinine Urine Total Protein Fluid Total Protein Vancomycin Trough Rheumatoid Factor Complement C4 Miscellaneous Test Crossmatch See Detail 01/25/17 01/25/17 01/26/17 18:02 23:07 01:20 WBC RBC Hgb Hct MCV MCH MCHC RDW Plt Count Lymph % (Auto) [place] % (Auto) Lymph # [place] # Baso # Seg Neutrophils % Seg Neuts % (Manual) Lymphocytes % (Manual) Monocytes % (Manual) Eosinophils % (Manual) Basophils % (Manual) Nucleated RBC % Seg Neutrophils # Seg Neutrophils # Man Lymphocytes # (Manual) Monocytes # (Manual) Eosinophils # (Manual) Basophils # (Manual) PT INR Fibrinogen dRVVT Confirm Interp Factor V Activity POC ABG pH POC ABG pCO2 POC ABG pO2 ABG pO2 ABG HCO3 ABG Base Excess ABG Hemoglobin Oxyhemoglobin Sodium Potassium Chloride Carbon Dioxide BUN Creatinine Glucose POC Glucose 120 H 123 H 112 H Lactic Acid Calcium Ionized Calcium Phosphorus Magnesium Direct Bilirubin AST ALT Alkaline Phosphatase Lactate Dehydrogenase Troponin T C-Reactive Protein Total Protein Albumin Prealbumin Triglycerides Cholesterol LDL Cholesterol Direct HDL Cholesterol 25-OH Vitamin D Total PTH Intact Urine pH Urine WBC (Auto) Urine Creatinine Urine Total Protein Fluid Total Protein Vancomycin Trough Rheumatoid Factor Complement C4 Miscellaneous Test Crossmatch 01/26/17 01/26/17 01/26/17 04:20 04:20 11:23 WBC 13.1 H RBC 3.28 L Hgb 9.0 L Hct 26.9 L D MCV MCH 27 L MCHC RDW 17.2 H Plt Count Lymph % (Auto) [place] % (Auto) 9.0 H Lymph # [place] # 1.2 H Baso # Seg Neutrophils % 73.1 H Seg Neuts % (Manual) Lymphocytes % (Manual) Monocytes % (Manual) Eosinophils % (Manual) Basophils % (Manual) Nucleated RBC % Seg Neutrophils # 9.6 H Seg Neutrophils # Man Lymphocytes # (Manual) Monocytes # (Manual) Eosinophils # (Manual) Basophils # (Manual) PT INR Fibrinogen dRVVT Confirm Interp Factor V Activity POC ABG pH POC ABG pCO2 POC ABG pO2 ABG pO2 ABG HCO3 ABG Base Excess ABG Hemoglobin Oxyhemoglobin Sodium Potassium Chloride Carbon Dioxide BUN 51 H Creatinine Glucose 117 H POC Glucose 125 H Lactic Acid Calcium Ionized Calcium Phosphorus Magnesium Direct Bilirubin AST ALT Alkaline Phosphatase Lactate Dehydrogenase Troponin T C-Reactive Protein Total Protein Albumin Prealbumin Triglycerides Cholesterol LDL Cholesterol Direct HDL Cholesterol 25-OH Vitamin D Total PTH Intact Urine pH Urine WBC (Auto) Urine Creatinine Urine Total Protein Fluid Total Protein Vancomycin Trough Rheumatoid Factor Complement C4 Miscellaneous Test Crossmatch 01/26/17 01/27/17 01/27/17 17:11 00:30 04:00 WBC RBC Hgb Hct MCV MCH MCHC RDW Plt Count Lymph % (Auto) [place] % (Auto) Lymph # [place] # Baso # Seg Neutrophils % Seg Neuts % (Manual) Lymphocytes % (Manual) Monocytes % (Manual) Eosinophils % (Manual) Basophils % (Manual) Nucleated RBC % Seg Neutrophils # Seg Neutrophils # Man Lymphocytes # (Manual) Monocytes # (Manual) Eosinophils # (Manual) Basophils # (Manual) PT INR Fibrinogen dRVVT Confirm Interp Factor V Activity POC ABG pH POC ABG pCO2 POC ABG pO2 ABG pO2 ABG HCO3 ABG Base Excess ABG Hemoglobin Oxyhemoglobin Sodium Potassium Chloride 97.7 L Carbon Dioxide 21 L BUN 79 H Creatinine 1.7 H D Glucose 112 H POC Glucose 133 H 135 H Lactic Acid Calcium Ionized Calcium Phosphorus 5.00 H D Magnesium Direct Bilirubin AST ALT Alkaline Phosphatase Lactate Dehydrogenase Troponin T C-Reactive Protein Total Protein Albumin Prealbumin Triglycerides Cholesterol LDL Cholesterol Direct HDL Cholesterol 25-OH Vitamin D Total PTH Intact Urine pH Urine WBC (Auto) Urine Creatinine Urine Total Protein Fluid Total Protein Vancomycin Trough Rheumatoid Factor Complement C4 Miscellaneous Test Crossmatch 01/27/17 01/27/17 01/27/17 05:12 12:18 17:25 WBC RBC Hgb Hct MCV MCH MCHC RDW Plt Count Lymph % (Auto) [place] % (Auto) Lymph # [place] # Baso # Seg Neutrophils % Seg Neuts % (Manual) Lymphocytes % (Manual) Monocytes % (Manual) Eosinophils % (Manual) Basophils % (Manual) Nucleated RBC % Seg Neutrophils # Seg Neutrophils # Man Lymphocytes # (Manual) Monocytes # (Manual) Eosinophils # (Manual) Basophils # (Manual) PT INR Fibrinogen dRVVT Confirm Interp Factor V Activity POC ABG pH POC ABG pCO2 POC ABG pO2 ABG pO2 ABG HCO3 ABG Base Excess ABG Hemoglobin Oxyhemoglobin Sodium Potassium Chloride Carbon Dioxide BUN Creatinine Glucose POC Glucose 116 H 153 H 152 H Lactic Acid Calcium Ionized Calcium Phosphorus Magnesium Direct Bilirubin AST ALT Alkaline Phosphatase Lactate Dehydrogenase Troponin T C-Reactive Protein Total Protein Albumin Prealbumin Triglycerides Cholesterol LDL Cholesterol Direct HDL Cholesterol 25-OH Vitamin D Total PTH Intact Urine pH Urine WBC (Auto) Urine Creatinine Urine Total Protein Fluid Total Protein Vancomycin Trough Rheumatoid Factor Complement C4 Miscellaneous Test Crossmatch 01/27/17 01/28/17 01/28/17 23:42 04:00 04:00 WBC 14.4 H RBC 2.82 L Hgb 7.4 L Hct 23.5 L MCV MCH 26 L MCHC RDW 17.6 H Plt Count Lymph % (Auto) 10.2 L [place] % (Auto) 11.0 H Lymph # [place] # 1.6 H Baso # Seg Neutrophils % 78.0 H Seg Neuts % (Manual) Lymphocytes % (Manual) Monocytes % (Manual) Eosinophils % (Manual) Basophils % (Manual) Nucleated RBC % Seg Neutrophils # 11.3 H Seg Neutrophils # Man Lymphocytes # (Manual) Monocytes # (Manual) Eosinophils # (Manual) Basophils # (Manual) PT INR Fibrinogen dRVVT Confirm Interp Factor V Activity POC ABG pH POC ABG pCO2 POC ABG pO2 ABG pO2 ABG HCO3 ABG Base Excess ABG Hemoglobin Oxyhemoglobin Sodium Potassium Chloride Carbon Dioxide BUN 55 H Creatinine 1.3 H Glucose 114 H POC Glucose 121 H Lactic Acid Calcium Ionized Calcium Phosphorus Magnesium Direct Bilirubin AST ALT Alkaline Phosphatase Lactate Dehydrogenase Troponin T C-Reactive Protein Total Protein Albumin 1.4 L Prealbumin Triglycerides Cholesterol LDL Cholesterol Direct HDL Cholesterol 25-OH Vitamin D Total PTH Intact Urine pH Urine WBC (Auto) Urine Creatinine Urine Total Protein Fluid Total Protein Vancomycin Trough Rheumatoid Factor Complement C4 Miscellaneous Test Crossmatch 01/28/17 01/28/17 01/29/17 04:59 12:30 00:02 WBC RBC Hgb Hct MCV MCH MCHC RDW Plt Count Lymph % (Auto) [place] % (Auto) Lymph # [place] # Baso # Seg Neutrophils % Seg Neuts % (Manual) Lymphocytes % (Manual) Monocytes % (Manual) Eosinophils % (Manual) Basophils % (Manual) Nucleated RBC % Seg Neutrophils # Seg Neutrophils # Man Lymphocytes # (Manual) Monocytes # (Manual) Eosinophils # (Manual) Basophils # (Manual) PT INR Fibrinogen dRVVT Confirm Interp Factor V Activity POC ABG pH POC ABG pCO2 POC ABG pO2 ABG pO2 ABG HCO3 ABG Base Excess ABG Hemoglobin Oxyhemoglobin Sodium Potassium Chloride Carbon Dioxide BUN Creatinine Glucose POC Glucose 126 H 119 H 138 H Lactic Acid Calcium Ionized Calcium Phosphorus Magnesium Direct Bilirubin AST ALT Alkaline Phosphatase Lactate Dehydrogenase Troponin T C-Reactive Protein Total Protein Albumin Prealbumin Triglycerides Cholesterol LDL Cholesterol Direct HDL Cholesterol 25-OH Vitamin D Total PTH Intact Urine pH Urine WBC (Auto) Urine Creatinine Urine Total Protein Fluid Total Protein Vancomycin Trough Rheumatoid Factor Complement C4 Miscellaneous Test Crossmatch 01/29/17 01/29/17 01/29/17 04:58 06:15 11:35 WBC RBC Hgb Hct MCV MCH MCHC RDW Plt Count Lymph % (Auto) [place] % (Auto) Lymph # [place] # Baso # Seg Neutrophils % Seg Neuts % (Manual) Lymphocytes % (Manual) Monocytes % (Manual) Eosinophils % (Manual) Basophils % (Manual) Nucleated RBC % Seg Neutrophils # Seg Neutrophils # Man Lymphocytes # (Manual) Monocytes # (Manual) Eosinophils # (Manual) Basophils # (Manual) PT INR Fibrinogen dRVVT Confirm Interp Factor V Activity POC ABG pH POC ABG pCO2 POC ABG pO2 ABG pO2 ABG HCO3 ABG Base Excess ABG Hemoglobin Oxyhemoglobin Sodium Potassium Chloride Carbon Dioxide BUN 85 H Creatinine 1.7 H Glucose 105 H POC Glucose 114 H 110 H Lactic Acid Calcium Ionized Calcium Phosphorus Magnesium 2.40 H Direct Bilirubin AST ALT Alkaline Phosphatase Lactate Dehydrogenase Troponin T C-Reactive Protein Total Protein Albumin Prealbumin Triglycerides Cholesterol LDL Cholesterol Direct HDL Cholesterol 25-OH Vitamin D Total PTH Intact Urine pH Urine WBC (Auto) Urine Creatinine Urine Total Protein Fluid Total Protein Vancomycin Trough Rheumatoid Factor Complement C4 Miscellaneous Test Crossmatch 01/29/17 01/29/17 01/30/17 18:24 23:41 05:12 WBC RBC Hgb Hct MCV MCH MCHC RDW Plt Count Lymph % (Auto) [place] % (Auto) Lymph # [place] # Baso # Seg Neutrophils % Seg Neuts % (Manual) Lymphocytes % (Manual) Monocytes % (Manual) Eosinophils % (Manual) Basophils % (Manual) Nucleated RBC % Seg Neutrophils # Seg Neutrophils # Man Lymphocytes # (Manual) Monocytes # (Manual) Eosinophils # (Manual) Basophils # (Manual) PT INR Fibrinogen dRVVT Confirm Interp Factor V Activity POC ABG pH POC ABG pCO2 POC ABG pO2 ABG pO2 ABG HCO3 ABG Base Excess ABG Hemoglobin Oxyhemoglobin Sodium Potassium Chloride Carbon Dioxide BUN Creatinine Glucose POC Glucose 109 H 134 H 109 H Lactic Acid Calcium Ionized Calcium Phosphorus Magnesium Direct Bilirubin AST ALT Alkaline Phosphatase Lactate Dehydrogenase Troponin T C-Reactive Protein Total Protein Albumin Prealbumin Triglycerides Cholesterol LDL Cholesterol Direct HDL Cholesterol 25-OH Vitamin D Total PTH Intact Urine pH Urine WBC (Auto) Urine Creatinine Urine Total Protein Fluid Total Protein Vancomycin Trough Rheumatoid Factor Complement C4 Miscellaneous Test Crossmatch 01/30/17 01/30/17 01/30/17 11:26 17:43 23:39 WBC RBC Hgb Hct MCV MCH MCHC RDW Plt Count Lymph % (Auto) [place] % (Auto) Lymph # [place] # Baso # Seg Neutrophils % Seg Neuts % (Manual) Lymphocytes % (Manual) Monocytes % (Manual) Eosinophils % (Manual) Basophils % (Manual) Nucleated RBC % Seg Neutrophils # Seg Neutrophils # Man Lymphocytes # (Manual) Monocytes # (Manual) Eosinophils # (Manual) Basophils # (Manual) PT INR Fibrinogen dRVVT Confirm Interp Factor V Activity POC ABG pH POC ABG pCO2 POC ABG pO2 ABG pO2 ABG HCO3 ABG Base Excess ABG Hemoglobin Oxyhemoglobin Sodium Potassium Chloride Carbon Dioxide BUN Creatinine Glucose POC Glucose 135 H 143 H 122 H Lactic Acid Calcium Ionized Calcium Phosphorus Magnesium Direct Bilirubin AST ALT Alkaline Phosphatase Lactate Dehydrogenase Troponin T C-Reactive Protein Total Protein Albumin Prealbumin Triglycerides Cholesterol LDL Cholesterol Direct HDL Cholesterol 25-OH Vitamin D Total PTH Intact Urine pH Urine WBC (Auto) Urine Creatinine Urine Total Protein Fluid Total Protein Vancomycin Trough Rheumatoid Factor Complement C4 Miscellaneous Test Crossmatch 01/31/17 01/31/17 01/31/17 04:00 05:40 11:12 WBC RBC Hgb Hct MCV MCH MCHC RDW Plt Count Lymph % (Auto) [place] % (Auto) Lymph # [place] # Baso # Seg Neutrophils % Seg Neuts % (Manual) Lymphocytes % (Manual) Monocytes % (Manual) Eosinophils % (Manual) Basophils % (Manual) Nucleated RBC % Seg Neutrophils # Seg Neutrophils # Man Lymphocytes # (Manual) Monocytes # (Manual) Eosinophils # (Manual) Basophils # (Manual) PT INR Fibrinogen dRVVT Confirm Interp Factor V Activity POC ABG pH POC ABG pCO2 POC ABG pO2 ABG pO2 ABG HCO3 ABG Base Excess ABG Hemoglobin Oxyhemoglobin Sodium Potassium Chloride Carbon Dioxide BUN 78 H Creatinine 1.5 H Glucose 108 H POC Glucose 123 H Lactic Acid Calcium Ionized Calcium Phosphorus Magnesium Direct Bilirubin AST ALT Alkaline Phosphatase Lactate Dehydrogenase Troponin T C-Reactive Protein 8.10 H Total Protein Albumin Prealbumin Triglycerides Cholesterol LDL Cholesterol Direct HDL Cholesterol 25-OH Vitamin D Total PTH Intact Urine pH Urine WBC (Auto) Urine Creatinine Urine Total Protein Fluid Total Protein Vancomycin Trough Rheumatoid Factor Complement C4 Miscellaneous Test Crossmatch 01/31/17 01/31/17 01/31/17 11:16 17:45 17:50 WBC RBC Hgb Hct MCV MCH MCHC RDW Plt Count Lymph % (Auto) [place] % (Auto) Lymph # [place] # Baso # Seg Neutrophils % Seg Neuts % (Manual) Lymphocytes % (Manual) Monocytes % (Manual) Eosinophils % (Manual) Basophils % (Manual) Nucleated RBC % Seg Neutrophils # Seg Neutrophils # Man Lymphocytes # (Manual) Monocytes # (Manual) Eosinophils # (Manual) Basophils # (Manual) PT INR Fibrinogen dRVVT Confirm Interp Factor V Activity POC ABG pH POC ABG pCO2 POC ABG pO2 ABG pO2 ABG HCO3 ABG Base Excess ABG Hemoglobin Oxyhemoglobin Sodium Potassium Chloride Carbon Dioxide BUN Creatinine Glucose POC Glucose 119 H 111 H Lactic Acid Calcium Ionized Calcium Phosphorus Magnesium Direct Bilirubin AST ALT Alkaline Phosphatase Lactate Dehydrogenase Troponin T C-Reactive Protein Total Protein Albumin Prealbumin Triglycerides Cholesterol LDL Cholesterol Direct HDL Cholesterol 25-OH Vitamin D Total PTH Intact 6.76 L Urine pH Urine WBC (Auto) Urine Creatinine Urine Total Protein Fluid Total Protein Vancomycin Trough Rheumatoid Factor Complement C4 Miscellaneous Test Crossmatch 01/31/17 02/01/17 02/01/17 23:19 05:42 09:24 WBC RBC Hgb Hct MCV MCH MCHC RDW Plt Count Lymph % (Auto) [place] % (Auto) Lymph # [place] # Baso # Seg Neutrophils % Seg Neuts % (Manual) Lymphocytes % (Manual) Monocytes % (Manual) Eosinophils % (Manual) Basophils % (Manual) Nucleated RBC % Seg Neutrophils # Seg Neutrophils # Man Lymphocytes # (Manual) Monocytes # (Manual) Eosinophils # (Manual) Basophils # (Manual) PT INR Fibrinogen dRVVT Confirm Interp Factor V Activity POC ABG pH POC ABG pCO2 POC ABG pO2 ABG pO2 ABG HCO3 ABG Base Excess ABG Hemoglobin Oxyhemoglobin Sodium Potassium Chloride Carbon Dioxide BUN Creatinine Glucose POC Glucose 118 H 122 H Lactic Acid Calcium Ionized Calcium Phosphorus Magnesium 2.60 H Direct Bilirubin AST ALT Alkaline Phosphatase Lactate Dehydrogenase Troponin T C-Reactive Protein Total Protein Albumin Prealbumin Triglycerides Cholesterol LDL Cholesterol Direct HDL Cholesterol 25-OH Vitamin D Total PTH Intact Urine pH Urine WBC (Auto) Urine Creatinine Urine Total Protein Fluid Total Protein Vancomycin Trough Rheumatoid Factor Complement C4 Miscellaneous Test Crossmatch 02/01/17 02/01/17 02/02/17 09:24 12:15 07:40 WBC RBC Hgb Hct MCV MCH MCHC RDW Plt Count Lymph % (Auto) [place] % (Auto) Lymph # [place] # Baso # Seg Neutrophils % Seg Neuts % (Manual) Lymphocytes % (Manual) Monocytes % (Manual) Eosinophils % (Manual) Basophils % (Manual) Nucleated RBC % Seg Neutrophils # Seg Neutrophils # Man Lymphocytes # (Manual) Monocytes # (Manual) Eosinophils # (Manual) Basophils # (Manual) PT INR Fibrinogen dRVVT Confirm Interp Factor V Activity POC ABG pH POC ABG pCO2 POC ABG pO2 ABG pO2 ABG HCO3 ABG Base Excess ABG Hemoglobin Oxyhemoglobin Sodium Potassium Chloride Carbon Dioxide BUN 102 H 72 H Creatinine 1.9 H 1.5 H Glucose 120 H POC Glucose 156 H Lactic Acid Calcium Ionized Calcium Phosphorus Magnesium Direct Bilirubin AST ALT Alkaline Phosphatase Lactate Dehydrogenase Troponin T C-Reactive Protein Total Protein Albumin Prealbumin Triglycerides Cholesterol LDL Cholesterol Direct HDL Cholesterol 25-OH Vitamin D Total PTH Intact Urine pH Urine WBC (Auto) Urine Creatinine Urine Total Protein Fluid Total Protein Vancomycin Trough Rheumatoid Factor Complement C4 Miscellaneous Test Crossmatch 02/02/17 02/02/17 02/03/17 10:16 12:11 00:08 WBC 12.0 H RBC 3.08 L Hgb 8.3 L Hct 25.6 L MCV MCH 27 L MCHC RDW 18.2 H Plt Count Lymph % (Auto) [place] % (Auto) Lymph # [place] # Baso # Seg Neutrophils % 78.4 H Seg Neuts % (Manual) Lymphocytes % (Manual) Monocytes % (Manual) Eosinophils % (Manual) Basophils % (Manual) Nucleated RBC % Seg Neutrophils # 9.4 H Seg Neutrophils # Man Lymphocytes # (Manual) Monocytes # (Manual) Eosinophils # (Manual) Basophils # (Manual) PT INR Fibrinogen dRVVT Confirm Interp Factor V Activity POC ABG pH POC ABG pCO2 POC ABG pO2 ABG pO2 ABG HCO3 ABG Base Excess ABG Hemoglobin Oxyhemoglobin Sodium Potassium Chloride Carbon Dioxide BUN Creatinine Glucose POC Glucose 110 H 120 H Lactic Acid Calcium Ionized Calcium Phosphorus Magnesium Direct Bilirubin AST ALT Alkaline Phosphatase Lactate Dehydrogenase Troponin T C-Reactive Protein Total Protein Albumin Prealbumin Triglycerides Cholesterol LDL Cholesterol Direct HDL Cholesterol 25-OH Vitamin D Total PTH Intact Urine pH Urine WBC (Auto) Urine Creatinine Urine Total Protein Fluid Total Protein Vancomycin Trough Rheumatoid Factor Complement C4 Miscellaneous Test Crossmatch 02/03/17 02/03/17 02/03/17 05:41 07:38 11:31 WBC RBC Hgb Hct MCV MCH MCHC RDW Plt Count Lymph % (Auto) [place] % (Auto) Lymph # [place] # Baso # Seg Neutrophils % Seg Neuts % (Manual) Lymphocytes % (Manual) Monocytes % (Manual) Eosinophils % (Manual) Basophils % (Manual) Nucleated RBC % Seg Neutrophils # Seg Neutrophils # Man Lymphocytes # (Manual) Monocytes # (Manual) Eosinophils # (Manual) Basophils # (Manual) PT INR Fibrinogen dRVVT Confirm Interp Factor V Activity POC ABG pH POC ABG pCO2 POC ABG pO2 ABG pO2 ABG HCO3 ABG Base Excess ABG Hemoglobin Oxyhemoglobin Sodium 134 L Potassium Chloride Carbon Dioxide 21 L BUN 91 H Creatinine 1.9 H Glucose 110 H POC Glucose 119 H 119 H Lactic Acid Calcium 10.3 H Ionized Calcium Phosphorus Magnesium Direct Bilirubin AST ALT Alkaline Phosphatase Lactate Dehydrogenase Troponin T C-Reactive Protein Total Protein Albumin Prealbumin Triglycerides Cholesterol LDL Cholesterol Direct HDL Cholesterol 25-OH Vitamin D Total PTH Intact Urine pH Urine WBC (Auto) Urine Creatinine Urine Total Protein Fluid Total Protein Vancomycin Trough Rheumatoid Factor Complement C4 Miscellaneous Test Crossmatch 02/03/17 02/04/17 02/04/17 17:13 04:00 05:18 WBC RBC Hgb Hct MCV MCH MCHC RDW Plt Count Lymph % (Auto) [place] % (Auto) Lymph # [place] # Baso # Seg Neutrophils % Seg Neuts % (Manual) Lymphocytes % (Manual) Monocytes % (Manual) Eosinophils % (Manual) Basophils % (Manual) Nucleated RBC % Seg Neutrophils # Seg Neutrophils # Man Lymphocytes # (Manual) Monocytes # (Manual) Eosinophils # (Manual) Basophils # (Manual) PT INR Fibrinogen dRVVT Confirm Interp Factor V Activity POC ABG pH POC ABG pCO2 POC ABG pO2 ABG pO2 ABG HCO3 ABG Base Excess ABG Hemoglobin Oxyhemoglobin Sodium 136 L Potassium Chloride Carbon Dioxide BUN 58 H Creatinine 1.3 H Glucose 103 H POC Glucose 133 H 132 H Lactic Acid Calcium Ionized Calcium Phosphorus 2.00 L D Magnesium 1.60 L Direct Bilirubin AST ALT Alkaline Phosphatase Lactate Dehydrogenase Troponin T C-Reactive Protein Total Protein Albumin Prealbumin Triglycerides Cholesterol LDL Cholesterol Direct HDL Cholesterol 25-OH Vitamin D Total PTH Intact Urine pH Urine WBC (Auto) Urine Creatinine Urine Total Protein Fluid Total Protein Vancomycin Trough Rheumatoid Factor Complement C4 Miscellaneous Test Crossmatch 02/05/17 02/05/17 02/05/17 00:01 04:00 06:42 WBC RBC Hgb Hct MCV MCH MCHC RDW Plt Count Lymph % (Auto) [place] % (Auto) Lymph # [place] # Baso # Seg Neutrophils % Seg Neuts % (Manual) Lymphocytes % (Manual) Monocytes % (Manual) Eosinophils % (Manual) Basophils % (Manual) Nucleated RBC % Seg Neutrophils # Seg Neutrophils # Man Lymphocytes # (Manual) Monocytes # (Manual) Eosinophils # (Manual) Basophils # (Manual) PT INR Fibrinogen dRVVT Confirm Interp Factor V Activity POC ABG pH POC ABG pCO2 POC ABG pO2 ABG pO2 ABG HCO3 ABG Base Excess ABG Hemoglobin Oxyhemoglobin Sodium Potassium Chloride Carbon Dioxide BUN 83 H Creatinine 1.8 H Glucose POC Glucose 119 H 110 H Lactic Acid Calcium 10.7 H Ionized Calcium Phosphorus Magnesium Direct Bilirubin AST ALT Alkaline Phosphatase Lactate Dehydrogenase Troponin T C-Reactive Protein Total Protein Albumin Prealbumin Triglycerides Cholesterol LDL Cholesterol Direct HDL Cholesterol 25-OH Vitamin D Total PTH Intact Urine pH Urine WBC (Auto) Urine Creatinine Urine Total Protein Fluid Total Protein Vancomycin Trough Rheumatoid Factor Complement C4 Miscellaneous Test Crossmatch 02/05/17 02/05/17 02/05/17 09:59 11:47 23:44 WBC RBC 2.69 L Hgb 7.2 L Hct 22.5 L MCV MCH 27 L MCHC RDW 18.6 H Plt Count Lymph % (Auto) [place] % (Auto) 9.2 H Lymph # [place] # 0.9 H Baso # Seg Neutrophils % Seg Neuts % (Manual) Lymphocytes % (Manual) Monocytes % (Manual) Eosinophils % (Manual) Basophils % (Manual) Nucleated RBC % Seg Neutrophils # Seg Neutrophils # Man Lymphocytes # (Manual) Monocytes # (Manual) Eosinophils # (Manual) Basophils # (Manual) PT INR Fibrinogen dRVVT Confirm Interp Factor V Activity POC ABG pH POC ABG pCO2 POC ABG pO2 ABG pO2 ABG HCO3 ABG Base Excess ABG Hemoglobin Oxyhemoglobin Sodium Potassium Chloride Carbon Dioxide BUN Creatinine Glucose POC Glucose 130 H 123 H Lactic Acid Calcium Ionized Calcium Phosphorus Magnesium Direct Bilirubin AST ALT Alkaline Phosphatase Lactate Dehydrogenase Troponin T C-Reactive Protein Total Protein Albumin Prealbumin Triglycerides Cholesterol LDL Cholesterol Direct HDL Cholesterol 25-OH Vitamin D Total PTH Intact Urine pH Urine WBC (Auto) Urine Creatinine Urine Total Protein Fluid Total Protein Vancomycin Trough Rheumatoid Factor Complement C4 Miscellaneous Test Crossmatch 02/06/17 02/06/17 02/06/17 04:45 05:58 12:01 WBC RBC Hgb Hct MCV MCH MCHC RDW Plt Count Lymph % (Auto) [place] % (Auto) Lymph # [place] # Baso # Seg Neutrophils % Seg Neuts % (Manual) Lymphocytes % (Manual) Monocytes % (Manual) Eosinophils % (Manual) Basophils % (Manual) Nucleated RBC % Seg Neutrophils # Seg Neutrophils # Man Lymphocytes # (Manual) Monocytes # (Manual) Eosinophils # (Manual) Basophils # (Manual) PT INR Fibrinogen dRVVT Confirm Interp Factor V Activity POC ABG pH POC ABG pCO2 POC ABG pO2 ABG pO2 ABG HCO3 ABG Base Excess ABG Hemoglobin Oxyhemoglobin Sodium Potassium Chloride Carbon Dioxide BUN 101 H Creatinine 2.0 H Glucose 102 H POC Glucose 115 H 132 H Lactic Acid Calcium 10.6 H Ionized Calcium Phosphorus Magnesium Direct Bilirubin AST ALT Alkaline Phosphatase 199 H Lactate Dehydrogenase Troponin T C-Reactive Protein Total Protein Albumin 1.4 L Prealbumin Triglycerides Cholesterol LDL Cholesterol Direct HDL Cholesterol 25-OH Vitamin D Total PTH Intact Urine pH Urine WBC (Auto) Urine Creatinine Urine Total Protein Fluid Total Protein Vancomycin Trough Rheumatoid Factor Complement C4 Miscellaneous Test Crossmatch 02/06/17 02/06/17 02/07/17 17:41 23:32 05:04 WBC RBC Hgb Hct MCV MCH MCHC RDW Plt Count Lymph % (Auto) [place] % (Auto) Lymph # [place] # Baso # Seg Neutrophils % Seg Neuts % (Manual) Lymphocytes % (Manual) Monocytes % (Manual) Eosinophils % (Manual) Basophils % (Manual) Nucleated RBC % Seg Neutrophils # Seg Neutrophils # Man Lymphocytes # (Manual) Monocytes # (Manual) Eosinophils # (Manual) Basophils # (Manual) PT INR Fibrinogen dRVVT Confirm Interp Factor V Activity POC ABG pH POC ABG pCO2 POC ABG pO2 ABG pO2 ABG HCO3 ABG Base Excess ABG Hemoglobin Oxyhemoglobin Sodium Potassium Chloride Carbon Dioxide BUN Creatinine Glucose POC Glucose 134 H 128 H 119 H Lactic Acid Calcium Ionized Calcium Phosphorus Magnesium Direct Bilirubin AST ALT Alkaline Phosphatase Lactate Dehydrogenase Troponin T C-Reactive Protein Total Protein Albumin Prealbumin Triglycerides Cholesterol LDL Cholesterol Direct HDL Cholesterol 25-OH Vitamin D Total PTH Intact Urine pH Urine WBC (Auto) Urine Creatinine Urine Total Protein Fluid Total Protein Vancomycin Trough Rheumatoid Factor Complement C4 Miscellaneous Test Crossmatch 02/07/17 02/07/17 02/07/17 06:30 11:20 17:13 WBC RBC Hgb Hct MCV MCH MCHC RDW Plt Count Lymph % (Auto) [place] % (Auto) Lymph # [place] # Baso # Seg Neutrophils % Seg Neuts % (Manual) Lymphocytes % (Manual) Monocytes % (Manual) Eosinophils % (Manual) Basophils % (Manual) Nucleated RBC % Seg Neutrophils # Seg Neutrophils # Man Lymphocytes # (Manual) Monocytes # (Manual) Eosinophils # (Manual) Basophils # (Manual) PT INR Fibrinogen dRVVT Confirm Interp Factor V Activity POC ABG pH POC ABG pCO2 POC ABG pO2 ABG pO2 ABG HCO3 ABG Base Excess ABG Hemoglobin Oxyhemoglobin Sodium Potassium 3.4 L Chloride Carbon Dioxide BUN 69 H Creatinine 1.5 H Glucose 105 H POC Glucose 117 H 110 H Lactic Acid Calcium Ionized Calcium Phosphorus Magnesium 1.50 L Direct Bilirubin AST ALT Alkaline Phosphatase Lactate Dehydrogenase Troponin T C-Reactive Protein Total Protein Albumin Prealbumin Triglycerides Cholesterol LDL Cholesterol Direct HDL Cholesterol 25-OH Vitamin D Total PTH Intact Urine pH Urine WBC (Auto) Urine Creatinine Urine Total Protein Fluid Total Protein Vancomycin Trough Rheumatoid Factor Complement C4 Miscellaneous Test Crossmatch 02/07/17 02/08/17 02/08/17 20:47 04:00 11:43 WBC RBC Hgb Hct MCV MCH MCHC RDW Plt Count Lymph % (Auto) [place] % (Auto) Lymph # [place] # Baso # Seg Neutrophils % Seg Neuts % (Manual) Lymphocytes % (Manual) Monocytes % (Manual) Eosinophils % (Manual) Basophils % (Manual) Nucleated RBC % Seg Neutrophils # Seg Neutrophils # Man Lymphocytes # (Manual) Monocytes # (Manual) Eosinophils # (Manual) Basophils # (Manual) PT INR Fibrinogen dRVVT Confirm Interp Factor V Activity POC ABG pH POC ABG pCO2 POC ABG pO2 ABG pO2 ABG HCO3 ABG Base Excess ABG Hemoglobin Oxyhemoglobin Sodium Potassium Chloride Carbon Dioxide BUN 86 H Creatinine 1.7 H Glucose POC Glucose 115 H 122 H Lactic Acid Calcium Ionized Calcium Phosphorus Magnesium 1.60 L Direct Bilirubin AST ALT Alkaline Phosphatase Lactate Dehydrogenase Troponin T C-Reactive Protein Total Protein Albumin Prealbumin Triglycerides Cholesterol LDL Cholesterol Direct HDL Cholesterol 25-OH Vitamin D Total PTH Intact Urine pH Urine WBC (Auto) Urine Creatinine Urine Total Protein Fluid Total Protein Vancomycin Trough Rheumatoid Factor Complement C4 Miscellaneous Test Crossmatch 02/08/17 02/09/17 02/09/17 17:36 05:44 11:30 WBC RBC Hgb Hct MCV MCH MCHC RDW Plt Count Lymph % (Auto) [place] % (Auto) Lymph # [place] # Baso # Seg Neutrophils % Seg Neuts % (Manual) Lymphocytes % (Manual) Monocytes % (Manual) Eosinophils % (Manual) Basophils % (Manual) Nucleated RBC % Seg Neutrophils # Seg Neutrophils # Man Lymphocytes # (Manual) Monocytes # (Manual) Eosinophils # (Manual) Basophils # (Manual) PT INR Fibrinogen dRVVT Confirm Interp Factor V Activity POC ABG pH POC ABG pCO2 POC ABG pO2 ABG pO2 ABG HCO3 ABG Base Excess ABG Hemoglobin Oxyhemoglobin Sodium Potassium Chloride Carbon Dioxide BUN Creatinine Glucose POC Glucose 125 H 117 H 120 H Lactic Acid Calcium Ionized Calcium Phosphorus Magnesium Direct Bilirubin AST ALT Alkaline Phosphatase Lactate Dehydrogenase Troponin T C-Reactive Protein Total Protein Albumin Prealbumin Triglycerides Cholesterol LDL Cholesterol Direct HDL Cholesterol 25-OH Vitamin D Total PTH Intact Urine pH Urine WBC (Auto) Urine Creatinine Urine Total Protein Fluid Total Protein Vancomycin Trough Rheumatoid Factor Complement C4 Miscellaneous Test Crossmatch 02/09/17 02/10/17 02/10/17 23:45 05:45 05:50 WBC RBC Hgb Hct MCV MCH MCHC RDW Plt Count Lymph % (Auto) [place] % (Auto) Lymph # [place] # Baso # Seg Neutrophils % Seg Neuts % (Manual) Lymphocytes % (Manual) Monocytes % (Manual) Eosinophils % (Manual) Basophils % (Manual) Nucleated RBC % Seg Neutrophils # Seg Neutrophils # Man Lymphocytes # (Manual) Monocytes # (Manual) Eosinophils # (Manual) Basophils # (Manual) PT INR Fibrinogen dRVVT Confirm Interp Factor V Activity POC ABG pH POC ABG pCO2 POC ABG pO2 ABG pO2 ABG HCO3 ABG Base Excess ABG Hemoglobin Oxyhemoglobin Sodium Potassium Chloride Carbon Dioxide BUN 85 H Creatinine 1.8 H Glucose 109 H POC Glucose 114 H 189 H Lactic Acid Calcium Ionized Calcium Phosphorus Magnesium 2.50 H Direct Bilirubin AST ALT Alkaline Phosphatase Lactate Dehydrogenase Troponin T C-Reactive Protein Total Protein Albumin Prealbumin Triglycerides Cholesterol LDL Cholesterol Direct HDL Cholesterol 25-OH Vitamin D Total PTH Intact Urine pH Urine WBC (Auto) Urine Creatinine Urine Total Protein Fluid Total Protein Vancomycin Trough Rheumatoid Factor Complement C4 Miscellaneous Test Crossmatch 02/10/17 02/10/17 02/10/17 05:51 11:55 17:42 WBC RBC Hgb Hct MCV MCH MCHC RDW Plt Count Lymph % (Auto) [place] % (Auto) Lymph # [place] # Baso # Seg Neutrophils % Seg Neuts % (Manual) Lymphocytes % (Manual) Monocytes % (Manual) Eosinophils % (Manual) Basophils % (Manual) Nucleated RBC % Seg Neutrophils # Seg Neutrophils # Man Lymphocytes # (Manual) Monocytes # (Manual) Eosinophils # (Manual) Basophils # (Manual) PT INR Fibrinogen dRVVT Confirm Interp Factor V Activity POC ABG pH POC ABG pCO2 POC ABG pO2 ABG pO2 ABG HCO3 ABG Base Excess ABG Hemoglobin Oxyhemoglobin Sodium Potassium Chloride Carbon Dioxide BUN Creatinine Glucose POC Glucose 106 H 146 H 132 H Lactic Acid Calcium Ionized Calcium Phosphorus Magnesium Direct Bilirubin AST ALT Alkaline Phosphatase Lactate Dehydrogenase Troponin T C-Reactive Protein Total Protein Albumin Prealbumin Triglycerides Cholesterol LDL Cholesterol Direct HDL Cholesterol 25-OH Vitamin D Total PTH Intact Urine pH Urine WBC (Auto) Urine Creatinine Urine Total Protein Fluid Total Protein Vancomycin Trough Rheumatoid Factor Complement C4 Miscellaneous Test Crossmatch 02/10/17 02/11/17 02/11/17 23:43 04:08 05:34 WBC RBC Hgb Hct MCV MCH MCHC RDW Plt Count Lymph % (Auto) [place] % (Auto) Lymph # [place] # Baso # Seg Neutrophils % Seg Neuts % (Manual) Lymphocytes % (Manual) Monocytes % (Manual) Eosinophils % (Manual) Basophils % (Manual) Nucleated RBC % Seg Neutrophils # Seg Neutrophils # Man Lymphocytes # (Manual) Monocytes # (Manual) Eosinophils # (Manual) Basophils # (Manual) PT INR Fibrinogen dRVVT Confirm Interp Factor V Activity POC ABG pH POC ABG pCO2 POC ABG pO2 ABG pO2 ABG HCO3 ABG Base Excess ABG Hemoglobin Oxyhemoglobin Sodium 136 L Potassium Chloride Carbon Dioxide BUN 65 H Creatinine 1.7 H Glucose 105 H POC Glucose 130 H 113 H Lactic Acid Calcium Ionized Calcium Phosphorus Magnesium Direct Bilirubin AST ALT Alkaline Phosphatase Lactate Dehydrogenase Troponin T C-Reactive Protein Total Protein Albumin Prealbumin Triglycerides Cholesterol LDL Cholesterol Direct HDL Cholesterol 25-OH Vitamin D Total PTH Intact Urine pH Urine WBC (Auto) Urine Creatinine Urine Total Protein Fluid Total Protein Vancomycin Trough Rheumatoid Factor Complement C4 Miscellaneous Test Crossmatch 02/11/17 02/11/17 02/12/17 11:56 23:18 06:19 WBC RBC Hgb Hct MCV MCH MCHC RDW Plt Count Lymph % (Auto) [place] % (Auto) Lymph # [place] # Baso # Seg Neutrophils % Seg Neuts % (Manual) Lymphocytes % (Manual) Monocytes % (Manual) Eosinophils % (Manual) Basophils % (Manual) Nucleated RBC % Seg Neutrophils # Seg Neutrophils # Man Lymphocytes # (Manual) Monocytes # (Manual) Eosinophils # (Manual) Basophils # (Manual) PT INR Fibrinogen dRVVT Confirm Interp Factor V Activity POC ABG pH POC ABG pCO2 POC ABG pO2 ABG pO2 ABG HCO3 ABG Base Excess ABG Hemoglobin Oxyhemoglobin Sodium 136 L Potassium Chloride 97.1 L Carbon Dioxide BUN 93 H Creatinine 2.4 H Glucose POC Glucose 126 H 119 H Lactic Acid Calcium 11.0 H Ionized Calcium Phosphorus Magnesium Direct Bilirubin AST ALT Alkaline Phosphatase Lactate Dehydrogenase Troponin T C-Reactive Protein Total Protein Albumin Prealbumin Triglycerides Cholesterol LDL Cholesterol Direct HDL Cholesterol 25-OH Vitamin D Total PTH Intact Urine pH Urine WBC (Auto) Urine Creatinine Urine Total Protein Fluid Total Protein Vancomycin Trough Rheumatoid Factor Complement C4 Miscellaneous Test Crossmatch 02/12/17 02/12/17 02/12/17 08:00 10:25 11:42 WBC 15.4 H RBC 2.63 L Hgb 6.9 L Hct 22.6 L MCV MCH 26 L MCHC RDW 20.5 H Plt Count Lymph % (Auto) [place] % (Auto) Lymph # [place] # Baso # Seg Neutrophils % Seg Neuts % (Manual) Lymphocytes % (Manual) Monocytes % (Manual) Eosinophils % (Manual) Basophils % (Manual) Nucleated RBC % Seg Neutrophils # Seg Neutrophils # Man Lymphocytes # (Manual) Monocytes # (Manual) Eosinophils # (Manual) Basophils # (Manual) PT INR Fibrinogen dRVVT Confirm Interp Factor V Activity POC ABG pH POC ABG pCO2 POC ABG pO2 ABG pO2 ABG HCO3 ABG Base Excess ABG Hemoglobin Oxyhemoglobin Sodium Potassium Chloride Carbon Dioxide BUN Creatinine Glucose POC Glucose 142 H Lactic Acid Calcium Ionized Calcium Phosphorus Magnesium Direct Bilirubin AST ALT Alkaline Phosphatase Lactate Dehydrogenase Troponin T C-Reactive Protein Total Protein Albumin Prealbumin Triglycerides Cholesterol LDL Cholesterol Direct HDL Cholesterol 25-OH Vitamin D Total PTH Intact Urine pH Urine WBC (Auto) Urine Creatinine Urine Total Protein Fluid Total Protein Vancomycin Trough Rheumatoid Factor Complement C4 Miscellaneous Test Crossmatch See Detail 02/12/17 02/13/17 02/13/17 18:04 00:04 05:00 WBC RBC Hgb Hct MCV MCH MCHC RDW Plt Count Lymph % (Auto) [place] % (Auto) Lymph # [place] # Baso # Seg Neutrophils % Seg Neuts % (Manual) Lymphocytes % (Manual) Monocytes % (Manual) Eosinophils % (Manual) Basophils % (Manual) Nucleated RBC % Seg Neutrophils # Seg Neutrophils # Man Lymphocytes # (Manual) Monocytes # (Manual) Eosinophils # (Manual) Basophils # (Manual) PT INR Fibrinogen dRVVT Confirm Interp Factor V Activity POC ABG pH POC ABG pCO2 POC ABG pO2 ABG pO2 ABG HCO3 ABG Base Excess ABG Hemoglobin Oxyhemoglobin Sodium 134 L Potassium Chloride 96.1 L Carbon Dioxide 20 L BUN 125 H Creatinine 3.0 H Glucose 111 H POC Glucose 135 H 109 H Lactic Acid Calcium 11.3 H Ionized Calcium Phosphorus Magnesium Direct Bilirubin AST ALT Alkaline Phosphatase Lactate Dehydrogenase Troponin T C-Reactive Protein Total Protein Albumin Prealbumin Triglycerides Cholesterol LDL Cholesterol Direct HDL Cholesterol 25-OH Vitamin D Total PTH Intact Urine pH Urine WBC (Auto) Urine Creatinine Urine Total Protein Fluid Total Protein Vancomycin Trough Rheumatoid Factor Complement C4 Miscellaneous Test Crossmatch 02/13/17 02/13/17 02/13/17 05:00 05:28 12:03 WBC 11.9 H RBC 2.92 L Hgb 7.8 L Hct 25.2 L MCV MCH 27 L MCHC RDW 19.3 H Plt Count Lymph % (Auto) [place] % (Auto) Lymph # [place] # Baso # Seg Neutrophils % Seg Neuts % (Manual) Lymphocytes % (Manual) Monocytes % (Manual) Eosinophils % (Manual) Basophils % (Manual) Nucleated RBC % Seg Neutrophils # Seg Neutrophils # Man Lymphocytes # (Manual) Monocytes # (Manual) Eosinophils # (Manual) Basophils # (Manual) PT INR Fibrinogen dRVVT Confirm Interp Factor V Activity POC ABG pH POC ABG pCO2 POC ABG pO2 ABG pO2 ABG HCO3 ABG Base Excess ABG Hemoglobin Oxyhemoglobin Sodium Potassium Chloride Carbon Dioxide BUN Creatinine Glucose POC Glucose 124 H 160 H Lactic Acid Calcium Ionized Calcium Phosphorus Magnesium Direct Bilirubin AST ALT Alkaline Phosphatase Lactate Dehydrogenase Troponin T C-Reactive Protein Total Protein Albumin Prealbumin Triglycerides Cholesterol LDL Cholesterol Direct HDL Cholesterol 25-OH Vitamin D Total PTH Intact Urine pH Urine WBC (Auto) Urine Creatinine Urine Total Protein Fluid Total Protein Vancomycin Trough Rheumatoid Factor Complement C4 Miscellaneous Test Crossmatch 02/13/17 02/14/17 02/14/17 18:09 06:16 08:08 WBC 15.2 H RBC 2.97 L Hgb 8.1 L Hct 26.3 L MCV MCH MCHC RDW 19.3 H Plt Count Lymph % (Auto) [place] % (Auto) Lymph # [place] # Baso # Seg Neutrophils % Seg Neuts % (Manual) Lymphocytes % (Manual) Monocytes % (Manual) Eosinophils % (Manual) Basophils % (Manual) Nucleated RBC % Seg Neutrophils # Seg Neutrophils # Man Lymphocytes # (Manual) Monocytes # (Manual) Eosinophils # (Manual) Basophils # (Manual) PT INR Fibrinogen dRVVT Confirm Interp Factor V Activity POC ABG pH POC ABG pCO2 POC ABG pO2 ABG pO2 ABG HCO3 ABG Base Excess ABG Hemoglobin Oxyhemoglobin Sodium Potassium Chloride Carbon Dioxide BUN Creatinine Glucose POC Glucose 110 H 112 H Lactic Acid Calcium Ionized Calcium Phosphorus Magnesium Direct Bilirubin AST ALT Alkaline Phosphatase Lactate Dehydrogenase Troponin T C-Reactive Protein Total Protein Albumin Prealbumin Triglycerides Cholesterol LDL Cholesterol Direct HDL Cholesterol 25-OH Vitamin D Total PTH Intact Urine pH Urine WBC (Auto) Urine Creatinine Urine Total Protein Fluid Total Protein Vancomycin Trough Rheumatoid Factor Complement C4 Miscellaneous Test Crossmatch 02/14/17 02/14/17 02/15/17 08:08 17:41 04:15 WBC RBC Hgb Hct MCV MCH MCHC RDW Plt Count Lymph % (Auto) [place] % (Auto) Lymph # [place] # Baso # Seg Neutrophils % Seg Neuts % (Manual) Lymphocytes % (Manual) Monocytes % (Manual) Eosinophils % (Manual) Basophils % (Manual) Nucleated RBC % Seg Neutrophils # Seg Neutrophils # Man Lymphocytes # (Manual) Monocytes # (Manual) Eosinophils # (Manual) Basophils # (Manual) PT INR Fibrinogen dRVVT Confirm Interp Factor V Activity POC ABG pH POC ABG pCO2 POC ABG pO2 ABG pO2 ABG HCO3 ABG Base Excess ABG Hemoglobin Oxyhemoglobin Sodium Potassium Chloride Carbon Dioxide 18 L 21 L BUN 79 H 113 H Creatinine 2.1 H 2.8 H Glucose POC Glucose 118 H Lactic Acid Calcium 10.7 H Ionized Calcium Phosphorus 1.70 L D Magnesium 1.60 L Direct Bilirubin AST ALT Alkaline Phosphatase Lactate Dehydrogenase Troponin T C-Reactive Protein Total Protein Albumin Prealbumin Triglycerides Cholesterol LDL Cholesterol Direct HDL Cholesterol 25-OH Vitamin D Total PTH Intact Urine pH Urine WBC (Auto) Urine Creatinine Urine Total Protein Fluid Total Protein Vancomycin Trough Rheumatoid Factor Complement C4 Miscellaneous Test Crossmatch 02/15/17 02/15/17 02/15/17 06:06 11:31 17:52 WBC RBC Hgb Hct MCV MCH MCHC RDW Plt Count Lymph % (Auto) [place] % (Auto) Lymph # [place] # Baso # Seg Neutrophils % Seg Neuts % (Manual) Lymphocytes % (Manual) Monocytes % (Manual) Eosinophils % (Manual) Basophils % (Manual) Nucleated RBC % Seg Neutrophils # Seg Neutrophils # Man Lymphocytes # (Manual) Monocytes # (Manual) Eosinophils # (Manual) Basophils # (Manual) PT INR Fibrinogen dRVVT Confirm Interp Factor V Activity POC ABG pH POC ABG pCO2 POC ABG pO2 ABG pO2 ABG HCO3 ABG Base Excess ABG Hemoglobin Oxyhemoglobin Sodium Potassium Chloride Carbon Dioxide BUN Creatinine Glucose POC Glucose 115 H 129 H 201 H Lactic Acid Calcium Ionized Calcium Phosphorus Magnesium Direct Bilirubin AST ALT Alkaline Phosphatase Lactate Dehydrogenase Troponin T C-Reactive Protein Total Protein Albumin Prealbumin Triglycerides Cholesterol LDL Cholesterol Direct HDL Cholesterol 25-OH Vitamin D Total PTH Intact Urine pH Urine WBC (Auto) Urine Creatinine Urine Total Protein Fluid Total Protein Vancomycin Trough Rheumatoid Factor Complement C4 Miscellaneous Test Crossmatch 02/15/17 02/15/17 02/15/17 19:08 19:08 19:08 WBC RBC Hgb Hct MCV MCH MCHC RDW Plt Count Lymph % (Auto) [place] % (Auto) Lymph # [place] # Baso # Seg Neutrophils % Seg Neuts % (Manual) Lymphocytes % (Manual) Monocytes % (Manual) Eosinophils % (Manual) Basophils % (Manual) Nucleated RBC % Seg Neutrophils # Seg Neutrophils # Man Lymphocytes # (Manual) Monocytes # (Manual) Eosinophils # (Manual) Basophils # (Manual) PT INR Fibrinogen dRVVT Confirm Interp Factor V Activity POC ABG pH POC ABG pCO2 POC ABG pO2 ABG pO2 ABG HCO3 ABG Base Excess ABG Hemoglobin Oxyhemoglobin Sodium Potassium Chloride Carbon Dioxide BUN Creatinine Glucose POC Glucose Lactic Acid Calcium Ionized Calcium 6.0 H Phosphorus Magnesium Direct Bilirubin AST ALT Alkaline Phosphatase Lactate Dehydrogenase Troponin T C-Reactive Protein Total Protein Albumin Prealbumin Triglycerides Cholesterol LDL Cholesterol Direct HDL Cholesterol 25-OH Vitamin D Total 13 L PTH Intact 10.88 L Urine pH Urine WBC (Auto) Urine Creatinine Urine Total Protein Fluid Total Protein Vancomycin Trough Rheumatoid Factor Complement C4 Miscellaneous Test Crossmatch 02/16/17 02/16/17 02/16/17 05:12 06:00 12:39 WBC RBC Hgb Hct MCV MCH MCHC RDW Plt Count Lymph % (Auto) [place] % (Auto) Lymph # [place] # Baso # Seg Neutrophils % Seg Neuts % (Manual) Lymphocytes % (Manual) Monocytes % (Manual) Eosinophils % (Manual) Basophils % (Manual) Nucleated RBC % Seg Neutrophils # Seg Neutrophils # Man Lymphocytes # (Manual) Monocytes # (Manual) Eosinophils # (Manual) Basophils # (Manual) PT INR Fibrinogen dRVVT Confirm Interp Factor V Activity POC ABG pH POC ABG pCO2 POC ABG pO2 ABG pO2 ABG HCO3 ABG Base Excess ABG Hemoglobin Oxyhemoglobin Sodium Potassium Chloride Carbon Dioxide BUN 74 H Creatinine 1.7 H Glucose 102 H POC Glucose 125 H 109 H Lactic Acid Calcium Ionized Calcium Phosphorus 2.10 L D Magnesium Direct Bilirubin AST ALT Alkaline Phosphatase Lactate Dehydrogenase Troponin T C-Reactive Protein Total Protein Albumin Prealbumin Triglycerides Cholesterol LDL Cholesterol Direct HDL Cholesterol 25-OH Vitamin D Total PTH Intact Urine pH Urine WBC (Auto) Urine Creatinine Urine Total Protein Fluid Total Protein Vancomycin Trough Rheumatoid Factor Complement C4 Miscellaneous Test Crossmatch 02/16/17 02/16/17 02/17/17 17:31 23:57 05:30 WBC RBC Hgb Hct MCV MCH MCHC RDW Plt Count Lymph % (Auto) [place] % (Auto) Lymph # [place] # Baso # Seg Neutrophils % Seg Neuts % (Manual) Lymphocytes % (Manual) Monocytes % (Manual) Eosinophils % (Manual) Basophils % (Manual) Nucleated RBC % Seg Neutrophils # Seg Neutrophils # Man Lymphocytes # (Manual) Monocytes # (Manual) Eosinophils # (Manual) Basophils # (Manual) PT INR Fibrinogen dRVVT Confirm Interp Factor V Activity POC ABG pH POC ABG pCO2 POC ABG pO2 ABG pO2 ABG HCO3 ABG Base Excess ABG Hemoglobin Oxyhemoglobin Sodium Potassium Chloride Carbon Dioxide BUN Creatinine Glucose POC Glucose 106 H 127 H 122 H Lactic Acid Calcium Ionized Calcium Phosphorus Magnesium Direct Bilirubin AST ALT Alkaline Phosphatase Lactate Dehydrogenase Troponin T C-Reactive Protein Total Protein Albumin Prealbumin Triglycerides Cholesterol LDL Cholesterol Direct HDL Cholesterol 25-OH Vitamin D Total PTH Intact Urine pH Urine WBC (Auto) Urine Creatinine Urine Total Protein Fluid Total Protein Vancomycin Trough Rheumatoid Factor Complement C4 Miscellaneous Test Crossmatch 02/17/17 02/17/17 02/17/17 06:00 12:17 17:57 WBC RBC Hgb Hct MCV MCH MCHC RDW Plt Count Lymph % (Auto) [place] % (Auto) Lymph # [place] # Baso # Seg Neutrophils % Seg Neuts % (Manual) Lymphocytes % (Manual) Monocytes % (Manual) Eosinophils % (Manual) Basophils % (Manual) Nucleated RBC % Seg Neutrophils # Seg Neutrophils # Man Lymphocytes # (Manual) Monocytes # (Manual) Eosinophils # (Manual) Basophils # (Manual) PT INR Fibrinogen dRVVT Confirm Interp Factor V Activity POC ABG pH POC ABG pCO2 POC ABG pO2 ABG pO2 ABG HCO3 ABG Base Excess ABG Hemoglobin Oxyhemoglobin Sodium Potassium Chloride Carbon Dioxide BUN 94 H Creatinine 2.3 H Glucose 106 H POC Glucose 173 H 140 H Lactic Acid Calcium Ionized Calcium Phosphorus Magnesium Direct Bilirubin AST ALT Alkaline Phosphatase Lactate Dehydrogenase Troponin T C-Reactive Protein Total Protein Albumin Prealbumin Triglycerides Cholesterol LDL Cholesterol Direct HDL Cholesterol 25-OH Vitamin D Total PTH Intact Urine pH Urine WBC (Auto) Urine Creatinine Urine Total Protein Fluid Total Protein Vancomycin Trough Rheumatoid Factor Complement C4 Miscellaneous Test Crossmatch 02/18/17 02/18/17 02/18/17 00:20 05:30 06:14 WBC RBC Hgb Hct MCV MCH MCHC RDW Plt Count Lymph % (Auto) [place] % (Auto) Lymph # [place] # Baso # Seg Neutrophils % Seg Neuts % (Manual) Lymphocytes % (Manual) Monocytes % (Manual) Eosinophils % (Manual) Basophils % (Manual) Nucleated RBC % Seg Neutrophils # Seg Neutrophils # Man Lymphocytes # (Manual) Monocytes # (Manual) Eosinophils # (Manual) Basophils # (Manual) PT INR Fibrinogen dRVVT Confirm Interp Factor V Activity POC ABG pH POC ABG pCO2 POC ABG pO2 ABG pO2 ABG HCO3 ABG Base Excess ABG Hemoglobin Oxyhemoglobin Sodium 136 L Potassium Chloride 97.5 L Carbon Dioxide BUN 73 H Creatinine 1.9 H Glucose POC Glucose 132 H 106 H Lactic Acid Calcium Ionized Calcium Phosphorus Magnesium Direct Bilirubin AST ALT Alkaline Phosphatase Lactate Dehydrogenase Troponin T C-Reactive Protein Total Protein Albumin Prealbumin Triglycerides Cholesterol LDL Cholesterol Direct HDL Cholesterol 25-OH Vitamin D Total PTH Intact Urine pH Urine WBC (Auto) Urine Creatinine Urine Total Protein Fluid Total Protein Vancomycin Trough Rheumatoid Factor Complement C4 Miscellaneous Test Crossmatch 02/18/17 02/18/17 02/18/17 09:51 11:32 17:59 WBC 13.1 H RBC 2.77 L Hgb 7.6 L Hct 23.9 L MCV MCH MCHC RDW 19.0 H Plt Count Lymph % (Auto) [place] % (Auto) 11.1 H Lymph # [place] # 1.5 H Baso # Seg Neutrophils % Seg Neuts % (Manual) Lymphocytes % (Manual) Monocytes % (Manual) Eosinophils % (Manual) Basophils % (Manual) Nucleated RBC % Seg Neutrophils # 9.1 H Seg Neutrophils # Man Lymphocytes # (Manual) Monocytes # (Manual) Eosinophils # (Manual) Basophils # (Manual) PT INR Fibrinogen dRVVT Confirm Interp Factor V Activity POC ABG pH POC ABG pCO2 POC ABG pO2 ABG pO2 ABG HCO3 ABG Base Excess ABG Hemoglobin Oxyhemoglobin Sodium Potassium Chloride Carbon Dioxide BUN Creatinine Glucose POC Glucose 123 H 119 H Lactic Acid Calcium Ionized Calcium Phosphorus Magnesium Direct Bilirubin AST ALT Alkaline Phosphatase Lactate Dehydrogenase Troponin T C-Reactive Protein Total Protein Albumin Prealbumin Triglycerides Cholesterol LDL Cholesterol Direct HDL Cholesterol 25-OH Vitamin D Total PTH Intact Urine pH Urine WBC (Auto) Urine Creatinine Urine Total Protein Fluid Total Protein Vancomycin Trough Rheumatoid Factor Complement C4 Miscellaneous Test Crossmatch 02/18/17 02/19/17 02/19/17 23:47 05:36 09:45 WBC RBC Hgb Hct MCV MCH 27 L MCHC RDW 19.2 H Plt Count Lymph % (Auto) [place] % (Auto) Lymph # [place] # Baso # Seg Neutrophils % Seg Neuts % (Manual) Lymphocytes % (Manual) Monocytes % (Manual) Eosinophils % (Manual) Basophils % (Manual) Nucleated RBC % Seg Neutrophils # Seg Neutrophils # Man Lymphocytes # (Manual) Monocytes # (Manual) Eosinophils # (Manual) Basophils # (Manual) PT INR Fibrinogen dRVVT Confirm Interp Factor V Activity POC ABG pH POC ABG pCO2 POC ABG pO2 ABG pO2 ABG HCO3 ABG Base Excess ABG Hemoglobin Oxyhemoglobin Sodium Potassium Chloride Carbon Dioxide BUN Creatinine Glucose POC Glucose 110 H 121 H Lactic Acid Calcium Ionized Calcium Phosphorus Magnesium Direct Bilirubin AST ALT Alkaline Phosphatase Lactate Dehydrogenase Troponin T C-Reactive Protein Total Protein Albumin Prealbumin Triglycerides Cholesterol LDL Cholesterol Direct HDL Cholesterol 25-OH Vitamin D Total PTH Intact Urine pH Urine WBC (Auto) Urine Creatinine Urine Total Protein Fluid Total Protein Vancomycin Trough Rheumatoid Factor Complement C4 Miscellaneous Test Crossmatch 02/19/17 02/20/17 02/20/17 09:45 00:10 06:15 WBC RBC Hgb Hct MCV MCH MCHC RDW Plt Count Lymph % (Auto) [place] % (Auto) Lymph # [place] # Baso # Seg Neutrophils % Seg Neuts % (Manual) Lymphocytes % (Manual) Monocytes % (Manual) Eosinophils % (Manual) Basophils % (Manual) Nucleated RBC % Seg Neutrophils # Seg Neutrophils # Man Lymphocytes # (Manual) Monocytes # (Manual) Eosinophils # (Manual) Basophils # (Manual) PT INR Fibrinogen dRVVT Confirm Interp Factor V Activity POC ABG pH POC ABG pCO2 POC ABG pO2 ABG pO2 ABG HCO3 ABG Base Excess ABG Hemoglobin Oxyhemoglobin Sodium 136 L Potassium 5.1 H Chloride 97.6 L Carbon Dioxide 20 L 18 L BUN 110 H 135 H Creatinine 2.6 H 3.2 H Glucose 106 H 110 H POC Glucose 117 H Lactic Acid Calcium Ionized Calcium Phosphorus 4.70 H D 5.60 H Magnesium Direct Bilirubin AST ALT Alkaline Phosphatase Lactate Dehydrogenase Troponin T C-Reactive Protein Total Protein Albumin Prealbumin Triglycerides Cholesterol LDL Cholesterol Direct HDL Cholesterol 25-OH Vitamin D Total PTH Intact Urine pH Urine WBC (Auto) Urine Creatinine Urine Total Protein Fluid Total Protein Vancomycin Trough Rheumatoid Factor Complement C4 Miscellaneous Test Crossmatch 02/20/17 02/20/17 02/21/17 11:30 17:51 00:14 WBC RBC Hgb Hct MCV MCH MCHC RDW Plt Count Lymph % (Auto) [place] % (Auto) Lymph # [place] # Baso # Seg Neutrophils % Seg Neuts % (Manual) Lymphocytes % (Manual) Monocytes % (Manual) Eosinophils % (Manual) Basophils % (Manual) Nucleated RBC % Seg Neutrophils # Seg Neutrophils # Man Lymphocytes # (Manual) Monocytes # (Manual) Eosinophils # (Manual) Basophils # (Manual) PT INR Fibrinogen dRVVT Confirm Interp Factor V Activity POC ABG pH POC ABG pCO2 POC ABG pO2 ABG pO2 ABG HCO3 ABG Base Excess ABG Hemoglobin Oxyhemoglobin Sodium Potassium Chloride Carbon Dioxide BUN Creatinine Glucose POC Glucose 173 H 133 H 125 H Lactic Acid Calcium Ionized Calcium Phosphorus Magnesium Direct Bilirubin AST ALT Alkaline Phosphatase Lactate Dehydrogenase Troponin T C-Reactive Protein Total Protein Albumin Prealbumin Triglycerides Cholesterol LDL Cholesterol Direct HDL Cholesterol 25-OH Vitamin D Total PTH Intact Urine pH Urine WBC (Auto) Urine Creatinine Urine Total Protein Fluid Total Protein Vancomycin Trough Rheumatoid Factor Complement C4 Miscellaneous Test Crossmatch 02/21/17 02/21/17 02/21/17 04:09 05:03 11:58 WBC RBC Hgb Hct MCV MCH MCHC RDW Plt Count Lymph % (Auto) [place] % (Auto) Lymph # [place] # Baso # Seg Neutrophils % Seg Neuts % (Manual) Lymphocytes % (Manual) Monocytes % (Manual) Eosinophils % (Manual) Basophils % (Manual) Nucleated RBC % Seg Neutrophils # Seg Neutrophils # Man Lymphocytes # (Manual) Monocytes # (Manual) Eosinophils # (Manual) Basophils # (Manual) PT INR Fibrinogen dRVVT Confirm Interp Factor V Activity POC ABG pH POC ABG pCO2 POC ABG pO2 ABG pO2 ABG HCO3 ABG Base Excess ABG Hemoglobin Oxyhemoglobin Sodium 135 L Potassium Chloride Carbon Dioxide 20 L BUN 76 H Creatinine 2.0 H Glucose 125 H POC Glucose 134 H 139 H Lactic Acid Calcium Ionized Calcium Phosphorus Magnesium Direct Bilirubin AST ALT Alkaline Phosphatase Lactate Dehydrogenase Troponin T C-Reactive Protein Total Protein Albumin Prealbumin Triglycerides Cholesterol LDL Cholesterol Direct HDL Cholesterol 25-OH Vitamin D Total PTH Intact Urine pH Urine WBC (Auto) Urine Creatinine Urine Total Protein Fluid Total Protein Vancomycin Trough Rheumatoid Factor Complement C4 Miscellaneous Test Crossmatch 02/21/17 02/21/17 02/22/17 17:16 23:41 04:10 WBC RBC Hgb Hct MCV MCH MCHC RDW Plt Count Lymph % (Auto) [place] % (Auto) Lymph # [place] # Baso # Seg Neutrophils % Seg Neuts % (Manual) Lymphocytes % (Manual) Monocytes % (Manual) Eosinophils % (Manual) Basophils % (Manual) Nucleated RBC % Seg Neutrophils # Seg Neutrophils # Man Lymphocytes # (Manual) Monocytes # (Manual) Eosinophils # (Manual) Basophils # (Manual) PT INR Fibrinogen dRVVT Confirm Interp Factor V Activity POC ABG pH POC ABG pCO2 POC ABG pO2 ABG pO2 ABG HCO3 ABG Base Excess ABG Hemoglobin Oxyhemoglobin Sodium 135 L Potassium Chloride 97.7 L Carbon Dioxide 21 L BUN 101 H Creatinine 2.5 H Glucose 116 H POC Glucose 120 H 128 H Lactic Acid Calcium Ionized Calcium Phosphorus Magnesium Direct Bilirubin AST ALT Alkaline Phosphatase Lactate Dehydrogenase Troponin T C-Reactive Protein Total Protein Albumin 1.3 L Prealbumin Triglycerides Cholesterol LDL Cholesterol Direct HDL Cholesterol 25-OH Vitamin D Total PTH Intact Urine pH Urine WBC (Auto) Urine Creatinine Urine Total Protein Fluid Total Protein Vancomycin Trough Rheumatoid Factor Complement C4 Miscellaneous Test Crossmatch 02/22/17 02/22/17 02/22/17 06:03 11:38 18:19 WBC RBC Hgb Hct MCV MCH MCHC RDW Plt Count Lymph % (Auto) [place] % (Auto) Lymph # [place] # Baso # Seg Neutrophils % Seg Neuts % (Manual) Lymphocytes % (Manual) Monocytes % (Manual) Eosinophils % (Manual) Basophils % (Manual) Nucleated RBC % Seg Neutrophils # Seg Neutrophils # Man Lymphocytes # (Manual) Monocytes # (Manual) Eosinophils # (Manual) Basophils # (Manual) PT INR Fibrinogen dRVVT Confirm Interp Factor V Activity POC ABG pH POC ABG pCO2 POC ABG pO2 ABG pO2 ABG HCO3 ABG Base Excess ABG Hemoglobin Oxyhemoglobin Sodium Potassium Chloride Carbon Dioxide BUN Creatinine Glucose POC Glucose 126 H 147 H 121 H Lactic Acid Calcium Ionized Calcium Phosphorus Magnesium Direct Bilirubin AST ALT Alkaline Phosphatase Lactate Dehydrogenase Troponin T C-Reactive Protein Total Protein Albumin Prealbumin Triglycerides Cholesterol LDL Cholesterol Direct HDL Cholesterol 25-OH Vitamin D Total PTH Intact Urine pH Urine WBC (Auto) Urine Creatinine Urine Total Protein Fluid Total Protein Vancomycin Trough Rheumatoid Factor Complement C4 Miscellaneous Test Crossmatch 02/23/17 02/23/17 02/23/17 05:00 05:46 12:27 WBC RBC Hgb Hct MCV MCH MCHC RDW Plt Count Lymph % (Auto) [place] % (Auto) Lymph # [place] # Baso # Seg Neutrophils % Seg Neuts % (Manual) Lymphocytes % (Manual) Monocytes % (Manual) Eosinophils % (Manual) Basophils % (Manual) Nucleated RBC % Seg Neutrophils # Seg Neutrophils # Man Lymphocytes # (Manual) Monocytes # (Manual) Eosinophils # (Manual) Basophils # (Manual) PT INR Fibrinogen dRVVT Confirm Interp Factor V Activity POC ABG pH POC ABG pCO2 POC ABG pO2 ABG pO2 ABG HCO3 ABG Base Excess ABG Hemoglobin Oxyhemoglobin Sodium 136 L Potassium Chloride 97.1 L Carbon Dioxide BUN 50 H Creatinine 1.5 H Glucose POC Glucose 110 H 115 H Lactic Acid Calcium 8.1 L Ionized Calcium Phosphorus 1.90 L D Magnesium Direct Bilirubin AST ALT Alkaline Phosphatase Lactate Dehydrogenase Troponin T C-Reactive Protein Total Protein Albumin Prealbumin Triglycerides Cholesterol LDL Cholesterol Direct HDL Cholesterol 25-OH Vitamin D Total PTH Intact Urine pH Urine WBC (Auto) Urine Creatinine Urine Total Protein Fluid Total Protein Vancomycin Trough Rheumatoid Factor Complement C4 Miscellaneous Test Crossmatch 02/23/17 02/23/17 02/24/17 18:02 23:18 05:04 WBC RBC Hgb Hct MCV MCH MCHC RDW Plt Count Lymph % (Auto) [place] % (Auto) Lymph # [place] # Baso # Seg Neutrophils % Seg Neuts % (Manual) Lymphocytes % (Manual) Monocytes % (Manual) Eosinophils % (Manual) Basophils % (Manual) Nucleated RBC % Seg Neutrophils # Seg Neutrophils # Man Lymphocytes # (Manual) Monocytes # (Manual) Eosinophils # (Manual) Basophils # (Manual) PT INR Fibrinogen dRVVT Confirm Interp Factor V Activity POC ABG pH POC ABG pCO2 POC ABG pO2 ABG pO2 ABG HCO3 ABG Base Excess ABG Hemoglobin Oxyhemoglobin Sodium Potassium Chloride Carbon Dioxide BUN Creatinine Glucose POC Glucose 111 H 126 H 121 H Lactic Acid Calcium Ionized Calcium Phosphorus Magnesium Direct Bilirubin AST ALT Alkaline Phosphatase Lactate Dehydrogenase Troponin T C-Reactive Protein Total Protein Albumin Prealbumin Triglycerides Cholesterol LDL Cholesterol Direct HDL Cholesterol 25-OH Vitamin D Total PTH Intact Urine pH Urine WBC (Auto) Urine Creatinine Urine Total Protein Fluid Total Protein Vancomycin Trough Rheumatoid Factor Complement C4 Miscellaneous Test Crossmatch 02/24/17 02/24/17 02/24/17 05:20 10:05 11:34 WBC RBC 2.95 L Hgb 8.4 L Hct 25.7 L MCV MCH MCHC RDW 20.8 H Plt Count Lymph % (Auto) [place] % (Auto) Lymph # [place] # Baso # Seg Neutrophils % 71.8 H Seg Neuts % (Manual) Lymphocytes % (Manual) Monocytes % (Manual) Eosinophils % (Manual) Basophils % (Manual) Nucleated RBC % Seg Neutrophils # Seg Neutrophils # Man Lymphocytes # (Manual) Monocytes # (Manual) Eosinophils # (Manual) Basophils # (Manual) PT INR Fibrinogen dRVVT Confirm Interp Factor V Activity POC ABG pH POC ABG pCO2 POC ABG pO2 ABG pO2 ABG HCO3 ABG Base Excess ABG Hemoglobin Oxyhemoglobin Sodium 136 L Potassium Chloride 95.5 L Carbon Dioxide BUN 76 H Creatinine 2.2 H Glucose 109 H POC Glucose 123 H Lactic Acid Calcium Ionized Calcium Phosphorus Magnesium Direct Bilirubin AST ALT Alkaline Phosphatase Lactate Dehydrogenase Troponin T C-Reactive Protein Total Protein Albumin Prealbumin Triglycerides Cholesterol LDL Cholesterol Direct HDL Cholesterol 25-OH Vitamin D Total PTH Intact Urine pH Urine WBC (Auto) Urine Creatinine Urine Total Protein Fluid Total Protein Vancomycin Trough Rheumatoid Factor Complement C4 Miscellaneous Test Crossmatch 02/24/17 02/24/17 02/25/17 17:43 23:02 05:00 WBC RBC Hgb Hct MCV MCH MCHC RDW Plt Count Lymph % (Auto) [place] % (Auto) Lymph # [place] # Baso # Seg Neutrophils % Seg Neuts % (Manual) Lymphocytes % (Manual) Monocytes % (Manual) Eosinophils % (Manual) Basophils % (Manual) Nucleated RBC % Seg Neutrophils # Seg Neutrophils # Man Lymphocytes # (Manual) Monocytes # (Manual) Eosinophils # (Manual) Basophils # (Manual) PT INR Fibrinogen dRVVT Confirm Interp Factor V Activity POC ABG pH POC ABG pCO2 POC ABG pO2 ABG pO2 ABG HCO3 ABG Base Excess ABG Hemoglobin Oxyhemoglobin Sodium Potassium Chloride 96.8 L Carbon Dioxide BUN 94 H Creatinine 2.8 H Glucose 118 H POC Glucose 128 H 144 H Lactic Acid Calcium Ionized Calcium Phosphorus Magnesium Direct Bilirubin AST ALT Alkaline Phosphatase Lactate Dehydrogenase Troponin T C-Reactive Protein Total Protein Albumin Prealbumin Triglycerides Cholesterol LDL Cholesterol Direct HDL Cholesterol 25-OH Vitamin D Total PTH Intact Urine pH Urine WBC (Auto) Urine Creatinine Urine Total Protein Fluid Total Protein Vancomycin Trough Rheumatoid Factor Complement C4 Miscellaneous Test Crossmatch 02/25/17 02/25/17 02/25/17 05:32 11:44 18:18 WBC RBC Hgb Hct MCV MCH MCHC RDW Plt Count Lymph % (Auto) [place] % (Auto) Lymph # [place] # Baso # Seg Neutrophils % Seg Neuts % (Manual) Lymphocytes % (Manual) Monocytes % (Manual) Eosinophils % (Manual) Basophils % (Manual) Nucleated RBC % Seg Neutrophils # Seg Neutrophils # Man Lymphocytes # (Manual) Monocytes # (Manual) Eosinophils # (Manual) Basophils # (Manual) PT INR Fibrinogen dRVVT Confirm Interp Factor V Activity POC ABG pH POC ABG pCO2 POC ABG pO2 ABG pO2 ABG HCO3 ABG Base Excess ABG Hemoglobin Oxyhemoglobin Sodium Potassium Chloride Carbon Dioxide BUN Creatinine Glucose POC Glucose 118 H 106 H 210 H Lactic Acid Calcium Ionized Calcium Phosphorus Magnesium Direct Bilirubin AST ALT Alkaline Phosphatase Lactate Dehydrogenase Troponin T C-Reactive Protein Total Protein Albumin Prealbumin Triglycerides Cholesterol LDL Cholesterol Direct HDL Cholesterol 25-OH Vitamin D Total PTH Intact Urine pH Urine WBC (Auto) Urine Creatinine Urine Total Protein Fluid Total Protein Vancomycin Trough Rheumatoid Factor Complement C4 Miscellaneous Test Crossmatch 02/26/17 02/26/17 02/26/17 00:07 05:14 12:07 WBC RBC Hgb Hct MCV MCH MCHC RDW Plt Count Lymph % (Auto) [place] % (Auto) Lymph # [place] # Baso # Seg Neutrophils % Seg Neuts % (Manual) Lymphocytes % (Manual) Monocytes % (Manual) Eosinophils % (Manual) Basophils % (Manual) Nucleated RBC % Seg Neutrophils # Seg Neutrophils # Man Lymphocytes # (Manual) Monocytes # (Manual) Eosinophils # (Manual) Basophils # (Manual) PT INR Fibrinogen dRVVT Confirm Interp Factor V Activity POC ABG pH POC ABG pCO2 POC ABG pO2 ABG pO2 ABG HCO3 ABG Base Excess ABG Hemoglobin Oxyhemoglobin Sodium Potassium Chloride Carbon Dioxide BUN Creatinine Glucose POC Glucose 136 H 142 H 132 H Lactic Acid Calcium Ionized Calcium Phosphorus Magnesium Direct Bilirubin AST ALT Alkaline Phosphatase Lactate Dehydrogenase Troponin T C-Reactive Protein Total Protein Albumin Prealbumin Triglycerides Cholesterol LDL Cholesterol Direct HDL Cholesterol 25-OH Vitamin D Total PTH Intact Urine pH Urine WBC (Auto) Urine Creatinine Urine Total Protein Fluid Total Protein Vancomycin Trough Rheumatoid Factor Complement C4 Miscellaneous Test Crossmatch 02/26/17 02/26/17 02/27/17 18:35 23:54 06:25 WBC RBC Hgb Hct MCV MCH MCHC RDW Plt Count Lymph % (Auto) [place] % (Auto) Lymph # [place] # Baso # Seg Neutrophils % Seg Neuts % (Manual) Lymphocytes % (Manual) Monocytes % (Manual) Eosinophils % (Manual) Basophils % (Manual) Nucleated RBC % Seg Neutrophils # Seg Neutrophils # Man Lymphocytes # (Manual) Monocytes # (Manual) Eosinophils # (Manual) Basophils # (Manual) PT INR Fibrinogen dRVVT Confirm Interp Factor V Activity POC ABG pH POC ABG pCO2 POC ABG pO2 ABG pO2 ABG HCO3 ABG Base Excess ABG Hemoglobin Oxyhemoglobin Sodium Potassium Chloride Carbon Dioxide BUN Creatinine Glucose POC Glucose 155 H 150 H 138 H Lactic Acid Calcium Ionized Calcium Phosphorus Magnesium Direct Bilirubin AST ALT Alkaline Phosphatase Lactate Dehydrogenase Troponin T C-Reactive Protein Total Protein Albumin Prealbumin Triglycerides Cholesterol LDL Cholesterol Direct HDL Cholesterol 25-OH Vitamin D Total PTH Intact Urine pH Urine WBC (Auto) Urine Creatinine Urine Total Protein Fluid Total Protein Vancomycin Trough Rheumatoid Factor Complement C4 Miscellaneous Test Crossmatch 02/27/17 02/27/17 02/27/17 08:50 11:50 17:38 WBC RBC Hgb Hct MCV MCH MCHC RDW Plt Count Lymph % (Auto) [place] % (Auto) Lymph # [place] # Baso # Seg Neutrophils % Seg Neuts % (Manual) Lymphocytes % (Manual) Monocytes % (Manual) Eosinophils % (Manual) Basophils % (Manual) Nucleated RBC % Seg Neutrophils # Seg Neutrophils # Man Lymphocytes # (Manual) Monocytes # (Manual) Eosinophils # (Manual) Basophils # (Manual) PT INR Fibrinogen dRVVT Confirm Interp Factor V Activity POC ABG pH POC ABG pCO2 POC ABG pO2 ABG pO2 ABG HCO3 ABG Base Excess ABG Hemoglobin Oxyhemoglobin Sodium Potassium 3.2 L Chloride Carbon Dioxide BUN 95 H Creatinine 2.7 H Glucose 179 H POC Glucose 150 H 133 H Lactic Acid Calcium Ionized Calcium Phosphorus Magnesium Direct Bilirubin AST ALT Alkaline Phosphatase Lactate Dehydrogenase Troponin T C-Reactive Protein Total Protein Albumin Prealbumin Triglycerides Cholesterol LDL Cholesterol Direct HDL Cholesterol 25-OH Vitamin D Total PTH Intact Urine pH Urine WBC (Auto) Urine Creatinine Urine Total Protein Fluid Total Protein Vancomycin Trough Rheumatoid Factor Complement C4 Miscellaneous Test Crossmatch 02/27/17 02/28/17 02/28/17 23:55 05:23 06:10 WBC RBC Hgb Hct MCV MCH MCHC RDW Plt Count Lymph % (Auto) [place] % (Auto) Lymph # [place] # Baso # Seg Neutrophils % Seg Neuts % (Manual) Lymphocytes % (Manual) Monocytes % (Manual) Eosinophils % (Manual) Basophils % (Manual) Nucleated RBC % Seg Neutrophils # Seg Neutrophils # Man Lymphocytes # (Manual) Monocytes # (Manual) Eosinophils # (Manual) Basophils # (Manual) PT INR Fibrinogen dRVVT Confirm Interp Factor V Activity POC ABG pH POC ABG pCO2 POC ABG pO2 ABG pO2 ABG HCO3 ABG Base Excess ABG Hemoglobin Oxyhemoglobin Sodium 134 L Potassium 3.0 L Chloride 94.9 L Carbon Dioxide BUN 53 H Creatinine 1.9 H Glucose 138 H POC Glucose 134 H 164 H Lactic Acid Calcium Ionized Calcium Phosphorus 2.00 L D Magnesium Direct Bilirubin AST ALT Alkaline Phosphatase Lactate Dehydrogenase Troponin T C-Reactive Protein Total Protein Albumin Prealbumin Triglycerides Cholesterol LDL Cholesterol Direct HDL Cholesterol 25-OH Vitamin D Total PTH Intact Urine pH Urine WBC (Auto) Urine Creatinine Urine Total Protein Fluid Total Protein Vancomycin Trough Rheumatoid Factor Complement C4 Miscellaneous Test Crossmatch 02/28/17 02/28/17 02/28/17 12:18 17:54 23:47 WBC RBC Hgb Hct MCV MCH MCHC RDW Plt Count Lymph % (Auto) [place] % (Auto) Lymph # [place] # Baso # Seg Neutrophils % Seg Neuts % (Manual) Lymphocytes % (Manual) Monocytes % (Manual) Eosinophils % (Manual) Basophils % (Manual) Nucleated RBC % Seg Neutrophils # Seg Neutrophils # Man Lymphocytes # (Manual) Monocytes # (Manual) Eosinophils # (Manual) Basophils # (Manual) PT INR Fibrinogen dRVVT Confirm Interp Factor V Activity POC ABG pH POC ABG pCO2 POC ABG pO2 ABG pO2 ABG HCO3 ABG Base Excess ABG Hemoglobin Oxyhemoglobin Sodium Potassium Chloride Carbon Dioxide BUN Creatinine Glucose POC Glucose 135 H 140 H 144 H Lactic Acid Calcium Ionized Calcium Phosphorus Magnesium Direct Bilirubin AST ALT Alkaline Phosphatase Lactate Dehydrogenase Troponin T C-Reactive Protein Total Protein Albumin Prealbumin Triglycerides Cholesterol LDL Cholesterol Direct HDL Cholesterol 25-OH Vitamin D Total PTH Intact Urine pH Urine WBC (Auto) Urine Creatinine Urine Total Protein Fluid Total Protein Vancomycin Trough Rheumatoid Factor Complement C4 Miscellaneous Test Crossmatch 03/01/17 03/01/17 03/01/17 04:00 12:02 17:13 WBC RBC Hgb Hct MCV MCH MCHC RDW Plt Count Lymph % (Auto) [place] % (Auto) Lymph # [place] # Baso # Seg Neutrophils % Seg Neuts % (Manual) Lymphocytes % (Manual) Monocytes % (Manual) Eosinophils % (Manual) Basophils % (Manual) Nucleated RBC % Seg Neutrophils # Seg Neutrophils # Man Lymphocytes # (Manual) Monocytes # (Manual) Eosinophils # (Manual) Basophils # (Manual) PT INR Fibrinogen dRVVT Confirm Interp Factor V Activity POC ABG pH POC ABG pCO2 POC ABG pO2 ABG pO2 ABG HCO3 ABG Base Excess ABG Hemoglobin Oxyhemoglobin Sodium Potassium 3.0 L Chloride 97.0 L Carbon Dioxide BUN 81 H Creatinine 2.6 H Glucose 121 H POC Glucose 165 H 126 H Lactic Acid Calcium Ionized Calcium Phosphorus Magnesium Direct Bilirubin AST ALT Alkaline Phosphatase Lactate Dehydrogenase Troponin T C-Reactive Protein Total Protein Albumin Prealbumin Triglycerides Cholesterol LDL Cholesterol Direct HDL Cholesterol 25-OH Vitamin D Total PTH Intact Urine pH Urine WBC (Auto) Urine Creatinine Urine Total Protein Fluid Total Protein Vancomycin Trough Rheumatoid Factor Complement C4 Miscellaneous Test Crossmatch 03/02/17 03/02/17 03/02/17 00:10 03:05 05:20 WBC RBC Hgb Hct MCV MCH MCHC RDW Plt Count Lymph % (Auto) [place] % (Auto) Lymph # [place] # Baso # Seg Neutrophils % Seg Neuts % (Manual) Lymphocytes % (Manual) Monocytes % (Manual) Eosinophils % (Manual) Basophils % (Manual) Nucleated RBC % Seg Neutrophils # Seg Neutrophils # Man Lymphocytes # (Manual) Monocytes # (Manual) Eosinophils # (Manual) Basophils # (Manual) PT INR Fibrinogen dRVVT Confirm Interp Factor V Activity POC ABG pH POC ABG pCO2 POC ABG pO2 ABG pO2 ABG HCO3 ABG Base Excess ABG Hemoglobin Oxyhemoglobin Sodium Potassium 3.0 L Chloride Carbon Dioxide BUN 41 H Creatinine 1.6 H Glucose 130 H POC Glucose 129 H 173 H Lactic Acid Calcium Ionized Calcium Phosphorus 1.70 L D Magnesium 1.40 L Direct Bilirubin AST ALT Alkaline Phosphatase Lactate Dehydrogenase Troponin T C-Reactive Protein Total Protein Albumin Prealbumin Triglycerides Cholesterol LDL Cholesterol Direct HDL Cholesterol 25-OH Vitamin D Total PTH Intact Urine pH Urine WBC (Auto) Urine Creatinine Urine Total Protein Fluid Total Protein Vancomycin Trough Rheumatoid Factor Complement C4 Miscellaneous Test Crossmatch 03/02/17 03/02/17 03/02/17 11:49 16:38 23:46 WBC RBC Hgb Hct MCV MCH MCHC RDW Plt Count Lymph % (Auto) [place] % (Auto) Lymph # [place] # Baso # Seg Neutrophils % Seg Neuts % (Manual) Lymphocytes % (Manual) Monocytes % (Manual) Eosinophils % (Manual) Basophils % (Manual) Nucleated RBC % Seg Neutrophils # Seg Neutrophils # Man Lymphocytes # (Manual) Monocytes # (Manual) Eosinophils # (Manual) Basophils # (Manual) PT INR Fibrinogen dRVVT Confirm Interp Factor V Activity POC ABG pH POC ABG pCO2 POC ABG pO2 ABG pO2 ABG HCO3 ABG Base Excess ABG Hemoglobin Oxyhemoglobin Sodium Potassium Chloride Carbon Dioxide BUN Creatinine Glucose POC Glucose 129 H 141 H 119 H Lactic Acid Calcium Ionized Calcium Phosphorus Magnesium Direct Bilirubin AST ALT Alkaline Phosphatase Lactate Dehydrogenase Troponin T C-Reactive Protein Total Protein Albumin Prealbumin Triglycerides Cholesterol LDL Cholesterol Direct HDL Cholesterol 25-OH Vitamin D Total PTH Intact Urine pH Urine WBC (Auto) Urine Creatinine Urine Total Protein Fluid Total Protein Vancomycin Trough Rheumatoid Factor Complement C4 Miscellaneous Test Crossmatch 03/03/17 03/03/17 03/03/17 04:00 11:59 18:08 WBC RBC Hgb Hct MCV MCH MCHC RDW Plt Count Lymph % (Auto) [place] % (Auto) Lymph # [place] # Baso # Seg Neutrophils % Seg Neuts % (Manual) Lymphocytes % (Manual) Monocytes % (Manual) Eosinophils % (Manual) Basophils % (Manual) Nucleated RBC % Seg Neutrophils # Seg Neutrophils # Man Lymphocytes # (Manual) Monocytes # (Manual) Eosinophils # (Manual) Basophils # (Manual) PT INR Fibrinogen dRVVT Confirm Interp Factor V Activity POC ABG pH POC ABG pCO2 POC ABG pO2 ABG pO2 ABG HCO3 ABG Base Excess ABG Hemoglobin Oxyhemoglobin Sodium Potassium Chloride Carbon Dioxide BUN 70 H Creatinine 2.3 H Glucose POC Glucose 125 H 131 H Lactic Acid Calcium Ionized Calcium Phosphorus Magnesium Direct Bilirubin AST ALT Alkaline Phosphatase Lactate Dehydrogenase Troponin T C-Reactive Protein Total Protein Albumin Prealbumin Triglycerides Cholesterol LDL Cholesterol Direct HDL Cholesterol 25-OH Vitamin D Total PTH Intact Urine pH Urine WBC (Auto) Urine Creatinine Urine Total Protein Fluid Total Protein Vancomycin Trough Rheumatoid Factor Complement C4 Miscellaneous Test Crossmatch 03/03/17 03/03/17 03/04/17 20:17 23:43 05:21 WBC RBC Hgb Hct MCV MCH MCHC RDW Plt Count Lymph % (Auto) [place] % (Auto) Lymph # [place] # Baso # Seg Neutrophils % Seg Neuts % (Manual) Lymphocytes % (Manual) Monocytes % (Manual) Eosinophils % (Manual) Basophils % (Manual) Nucleated RBC % Seg Neutrophils # Seg Neutrophils # Man Lymphocytes # (Manual) Monocytes # (Manual) Eosinophils # (Manual) Basophils # (Manual) PT INR Fibrinogen dRVVT Confirm Interp Factor V Activity POC ABG pH 7.518 H POC ABG pCO2 28.8 L POC ABG pO2 61 L ABG pO2 ABG HCO3 ABG Base Excess ABG Hemoglobin Oxyhemoglobin Sodium Potassium Chloride Carbon Dioxide BUN Creatinine Glucose POC Glucose 122 H 130 H Lactic Acid Calcium Ionized Calcium Phosphorus Magnesium Direct Bilirubin AST ALT Alkaline Phosphatase Lactate Dehydrogenase Troponin T C-Reactive Protein Total Protein Albumin Prealbumin Triglycerides Cholesterol LDL Cholesterol Direct HDL Cholesterol 25-OH Vitamin D Total PTH Intact Urine pH Urine WBC (Auto) Urine Creatinine Urine Total Protein Fluid Total Protein Vancomycin Trough Rheumatoid Factor Complement C4 Miscellaneous Test Crossmatch 03/04/17 03/05/17 03/06/17 06:10 06:15 03:52 WBC RBC Hgb Hct MCV MCH MCHC RDW Plt Count Lymph % (Auto) [place] % (Auto) Lymph # [place] # Baso # Seg Neutrophils % Seg Neuts % (Manual) Lymphocytes % (Manual) Monocytes % (Manual) Eosinophils % (Manual) Basophils % (Manual) Nucleated RBC % Seg Neutrophils # Seg Neutrophils # Man Lymphocytes # (Manual) Monocytes # (Manual) Eosinophils # (Manual) Basophils # (Manual) PT INR Fibrinogen dRVVT Confirm Interp Factor V Activity POC ABG pH POC ABG pCO2 POC ABG pO2 ABG pO2 ABG HCO3 ABG Base Excess ABG Hemoglobin Oxyhemoglobin Sodium 135 L 136 L Potassium 5.2 H 5.9 H Chloride 95.8 L 97.7 L 96.0 L Carbon Dioxide 21 L 21 L BUN 40 H 56 H 70 H Creatinine 1.7 H 2.4 H 3.0 H Glucose 118 H POC Glucose Lactic Acid Calcium Ionized Calcium Phosphorus 4.80 H D 6.00 H D Magnesium 2.60 H Direct Bilirubin AST ALT Alkaline Phosphatase 165 H Lactate Dehydrogenase Troponin T C-Reactive Protein Total Protein Albumin 1.5 L Prealbumin Triglycerides Cholesterol LDL Cholesterol Direct HDL Cholesterol 25-OH Vitamin D Total PTH Intact Urine pH Urine WBC (Auto) Urine Creatinine Urine Total Protein Fluid Total Protein Vancomycin Trough Rheumatoid Factor Complement C4 Miscellaneous Test Crossmatch 03/06/17 03/06/17 03/06/17 11:19 18:40 23:39 WBC RBC Hgb Hct MCV MCH MCHC RDW Plt Count Lymph % (Auto) [place] % (Auto) Lymph # [place] # Baso # Seg Neutrophils % Seg Neuts % (Manual) Lymphocytes % (Manual) Monocytes % (Manual) Eosinophils % (Manual) Basophils % (Manual) Nucleated RBC % Seg Neutrophils # Seg Neutrophils # Man Lymphocytes # (Manual) Monocytes # (Manual) Eosinophils # (Manual) Basophils # (Manual) PT INR Fibrinogen dRVVT Confirm Interp Factor V Activity POC ABG pH POC ABG pCO2 POC ABG pO2 ABG pO2 ABG HCO3 ABG Base Excess ABG Hemoglobin Oxyhemoglobin Sodium Potassium Chloride Carbon Dioxide BUN Creatinine Glucose POC Glucose 108 H 110 H 156 H Lactic Acid Calcium Ionized Calcium Phosphorus Magnesium Direct Bilirubin AST ALT Alkaline Phosphatase Lactate Dehydrogenase Troponin T C-Reactive Protein Total Protein Albumin Prealbumin Triglycerides Cholesterol LDL Cholesterol Direct HDL Cholesterol 25-OH Vitamin D Total PTH Intact Urine pH Urine WBC (Auto) Urine Creatinine Urine Total Protein Fluid Total Protein Vancomycin Trough Rheumatoid Factor Complement C4 Miscellaneous Test Crossmatch 03/07/17 03/07/17 03/07/17 06:04 11:56 23:31 WBC RBC Hgb Hct MCV MCH MCHC RDW Plt Count Lymph % (Auto) [place] % (Auto) Lymph # [place] # Baso # Seg Neutrophils % Seg Neuts % (Manual) Lymphocytes % (Manual) Monocytes % (Manual) Eosinophils % (Manual) Basophils % (Manual) Nucleated RBC % Seg Neutrophils # Seg Neutrophils # Man Lymphocytes # (Manual) Monocytes # (Manual) Eosinophils # (Manual) Basophils # (Manual) PT INR Fibrinogen dRVVT Confirm Interp Factor V Activity POC ABG pH POC ABG pCO2 POC ABG pO2 ABG pO2 ABG HCO3 ABG Base Excess ABG Hemoglobin Oxyhemoglobin Sodium Potassium Chloride 97.5 L Carbon Dioxide BUN 28 H Creatinine 1.5 H Glucose POC Glucose 106 H 131 H Lactic Acid Calcium 7.9 L Ionized Calcium Phosphorus Magnesium Direct Bilirubin AST ALT Alkaline Phosphatase Lactate Dehydrogenase Troponin T C-Reactive Protein Total Protein Albumin Prealbumin Triglycerides Cholesterol LDL Cholesterol Direct HDL Cholesterol 25-OH Vitamin D Total PTH Intact Urine pH Urine WBC (Auto) Urine Creatinine Urine Total Protein Fluid Total Protein Vancomycin Trough Rheumatoid Factor Complement C4 Miscellaneous Test Crossmatch 03/08/17 03/08/17 03/08/17 05:15 05:38 11:50 WBC RBC Hgb Hct MCV MCH MCHC RDW Plt Count Lymph % (Auto) [place] % (Auto) Lymph # [place] # Baso # Seg Neutrophils % Seg Neuts % (Manual) Lymphocytes % (Manual) Monocytes % (Manual) Eosinophils % (Manual) Basophils % (Manual) Nucleated RBC % Seg Neutrophils # Seg Neutrophils # Man Lymphocytes # (Manual) Monocytes # (Manual) Eosinophils # (Manual) Basophils # (Manual) PT INR Fibrinogen dRVVT Confirm Interp Factor V Activity POC ABG pH POC ABG pCO2 POC ABG pO2 ABG pO2 ABG HCO3 ABG Base Excess ABG Hemoglobin Oxyhemoglobin Sodium 135 L Potassium Chloride 96.6 L Carbon Dioxide 20 L BUN 46 H Creatinine 2.3 H D Glucose 117 H POC Glucose 156 H 131 H Lactic Acid Calcium Ionized Calcium Phosphorus Magnesium Direct Bilirubin AST ALT Alkaline Phosphatase Lactate Dehydrogenase Troponin T C-Reactive Protein Total Protein Albumin Prealbumin Triglycerides Cholesterol LDL Cholesterol Direct HDL Cholesterol 25-OH Vitamin D Total PTH Intact Urine pH Urine WBC (Auto) Urine Creatinine Urine Total Protein Fluid Total Protein Vancomycin Trough Rheumatoid Factor Complement C4 Miscellaneous Test Crossmatch 03/08/17 03/09/17 03/09/17 23:34 04:42 05:20 WBC RBC Hgb Hct MCV MCH MCHC RDW Plt Count Lymph % (Auto) [place] % (Auto) Lymph # [place] # Baso # Seg Neutrophils % Seg Neuts % (Manual) Lymphocytes % (Manual) Monocytes % (Manual) Eosinophils % (Manual) Basophils % (Manual) Nucleated RBC % Seg Neutrophils # Seg Neutrophils # Man Lymphocytes # (Manual) Monocytes # (Manual) Eosinophils # (Manual) Basophils # (Manual) PT INR Fibrinogen dRVVT Confirm Interp Factor V Activity POC ABG pH POC ABG pCO2 POC ABG pO2 ABG pO2 ABG HCO3 ABG Base Excess ABG Hemoglobin Oxyhemoglobin Sodium Potassium 3.2 L Chloride Carbon Dioxide BUN 30 H Creatinine 1.7 H Glucose 112 H POC Glucose 125 H 128 H Lactic Acid Calcium 8.2 L Ionized Calcium Phosphorus 1.80 L D Magnesium 1.40 L Direct Bilirubin AST ALT Alkaline Phosphatase Lactate Dehydrogenase Troponin T C-Reactive Protein Total Protein Albumin Prealbumin Triglycerides Cholesterol LDL Cholesterol Direct HDL Cholesterol 25-OH Vitamin D Total PTH Intact Urine pH Urine WBC (Auto) Urine Creatinine Urine Total Protein Fluid Total Protein Vancomycin Trough Rheumatoid Factor Complement C4 Miscellaneous Test Crossmatch 03/09/17 03/09/17 03/10/17 11:48 17:38 00:08 WBC RBC Hgb Hct MCV MCH MCHC RDW Plt Count Lymph % (Auto) [place] % (Auto) Lymph # [place] # Baso # Seg Neutrophils % Seg Neuts % (Manual) Lymphocytes % (Manual) Monocytes % (Manual) Eosinophils % (Manual) Basophils % (Manual) Nucleated RBC % Seg Neutrophils # Seg Neutrophils # Man Lymphocytes # (Manual) Monocytes # (Manual) Eosinophils # (Manual) Basophils # (Manual) PT INR Fibrinogen dRVVT Confirm Interp Factor V Activity POC ABG pH POC ABG pCO2 POC ABG pO2 ABG pO2 ABG HCO3 ABG Base Excess ABG Hemoglobin Oxyhemoglobin Sodium Potassium Chloride Carbon Dioxide BUN Creatinine Glucose POC Glucose 146 H 140 H 137 H Lactic Acid Calcium Ionized Calcium Phosphorus Magnesium Direct Bilirubin AST ALT Alkaline Phosphatase Lactate Dehydrogenase Troponin T C-Reactive Protein Total Protein Albumin Prealbumin Triglycerides Cholesterol LDL Cholesterol Direct HDL Cholesterol 25-OH Vitamin D Total PTH Intact Urine pH Urine WBC (Auto) Urine Creatinine Urine Total Protein Fluid Total Protein Vancomycin Trough Rheumatoid Factor Complement C4 Miscellaneous Test Crossmatch 03/10/17 03/10/17 03/10/17 04:46 06:37 11:22 WBC RBC Hgb Hct MCV MCH MCHC RDW Plt Count Lymph % (Auto) [place] % (Auto) Lymph # [place] # Baso # Seg Neutrophils % Seg Neuts % (Manual) Lymphocytes % (Manual) Monocytes % (Manual) Eosinophils % (Manual) Basophils % (Manual) Nucleated RBC % Seg Neutrophils # Seg Neutrophils # Man Lymphocytes # (Manual) Monocytes # (Manual) Eosinophils # (Manual) Basophils # (Manual) PT INR Fibrinogen dRVVT Confirm Interp Factor V Activity POC ABG pH POC ABG pCO2 POC ABG pO2 ABG pO2 ABG HCO3 ABG Base Excess ABG Hemoglobin Oxyhemoglobin Sodium 135 L Potassium Chloride 96.3 L Carbon Dioxide 21 L BUN 46 H Creatinine 2.2 H Glucose 106 H POC Glucose 115 H 151 H Lactic Acid Calcium 8.2 L Ionized Calcium Phosphorus Magnesium Direct Bilirubin AST ALT Alkaline Phosphatase Lactate Dehydrogenase Troponin T C-Reactive Protein Total Protein Albumin Prealbumin Triglycerides Cholesterol LDL Cholesterol Direct HDL Cholesterol 25-OH Vitamin D Total PTH Intact Urine pH Urine WBC (Auto) Urine Creatinine Urine Total Protein Fluid Total Protein Vancomycin Trough Rheumatoid Factor Complement C4 Miscellaneous Test Crossmatch 03/10/17 03/10/17 03/11/17 17:53 23:46 05:19 WBC RBC Hgb Hct MCV MCH MCHC RDW Plt Count Lymph % (Auto) [place] % (Auto) Lymph # [place] # Baso # Seg Neutrophils % Seg Neuts % (Manual) Lymphocytes % (Manual) Monocytes % (Manual) Eosinophils % (Manual) Basophils % (Manual) Nucleated RBC % Seg Neutrophils # Seg Neutrophils # Man Lymphocytes # (Manual) Monocytes # (Manual) Eosinophils # (Manual) Basophils # (Manual) PT INR Fibrinogen dRVVT Confirm Interp Factor V Activity POC ABG pH POC ABG pCO2 POC ABG pO2 ABG pO2 ABG HCO3 ABG Base Excess ABG Hemoglobin Oxyhemoglobin Sodium Potassium Chloride Carbon Dioxide BUN Creatinine Glucose POC Glucose 137 H 131 H 108 H Lactic Acid Calcium Ionized Calcium Phosphorus Magnesium Direct Bilirubin AST ALT Alkaline Phosphatase Lactate Dehydrogenase Troponin T C-Reactive Protein Total Protein Albumin Prealbumin Triglycerides Cholesterol LDL Cholesterol Direct HDL Cholesterol 25-OH Vitamin D Total PTH Intact Urine pH Urine WBC (Auto) Urine Creatinine Urine Total Protein Fluid Total Protein Vancomycin Trough Rheumatoid Factor Complement C4 Miscellaneous Test Crossmatch 03/11/17 03/11/17 03/11/17 11:37 18:13 23:55 WBC RBC Hgb Hct MCV MCH MCHC RDW Plt Count Lymph % (Auto) [place] % (Auto) Lymph # [place] # Baso # Seg Neutrophils % Seg Neuts % (Manual) Lymphocytes % (Manual) Monocytes % (Manual) Eosinophils % (Manual) Basophils % (Manual) Nucleated RBC % Seg Neutrophils # Seg Neutrophils # Man Lymphocytes # (Manual) Monocytes # (Manual) Eosinophils # (Manual) Basophils # (Manual) PT INR Fibrinogen dRVVT Confirm Interp Factor V Activity POC ABG pH POC ABG pCO2 POC ABG pO2 ABG pO2 ABG HCO3 ABG Base Excess ABG Hemoglobin Oxyhemoglobin Sodium Potassium Chloride Carbon Dioxide BUN Creatinine Glucose POC Glucose 113 H 126 H 134 H Lactic Acid Calcium Ionized Calcium Phosphorus Magnesium Direct Bilirubin AST ALT Alkaline Phosphatase Lactate Dehydrogenase Troponin T C-Reactive Protein Total Protein Albumin Prealbumin Triglycerides Cholesterol LDL Cholesterol Direct HDL Cholesterol 25-OH Vitamin D Total PTH Intact Urine pH Urine WBC (Auto) Urine Creatinine Urine Total Protein Fluid Total Protein Vancomycin Trough Rheumatoid Factor Complement C4 Miscellaneous Test Crossmatch 03/12/17 03/12/17 03/12/17 05:06 11:30 17:39 WBC RBC Hgb Hct MCV MCH MCHC RDW Plt Count Lymph % (Auto) [place] % (Auto) Lymph # [place] # Baso # Seg Neutrophils % Seg Neuts % (Manual) Lymphocytes % (Manual) Monocytes % (Manual) Eosinophils % (Manual) Basophils % (Manual) Nucleated RBC % Seg Neutrophils # Seg Neutrophils # Man Lymphocytes # (Manual) Monocytes # (Manual) Eosinophils # (Manual) Basophils # (Manual) PT INR Fibrinogen dRVVT Confirm Interp Factor V Activity POC ABG pH POC ABG pCO2 POC ABG pO2 ABG pO2 ABG HCO3 ABG Base Excess ABG Hemoglobin Oxyhemoglobin Sodium Potassium Chloride Carbon Dioxide BUN Creatinine Glucose POC Glucose 127 H 144 H 151 H Lactic Acid Calcium Ionized Calcium Phosphorus Magnesium Direct Bilirubin AST ALT Alkaline Phosphatase Lactate Dehydrogenase Troponin T C-Reactive Protein Total Protein Albumin Prealbumin Triglycerides Cholesterol LDL Cholesterol Direct HDL Cholesterol 25-OH Vitamin D Total PTH Intact Urine pH Urine WBC (Auto) Urine Creatinine Urine Total Protein Fluid Total Protein Vancomycin Trough Rheumatoid Factor Complement C4 Miscellaneous Test Crossmatch 03/13/17 03/13/17 03/13/17 05:01 05:39 11:29 WBC RBC Hgb Hct MCV MCH MCHC RDW Plt Count Lymph % (Auto) [place] % (Auto) Lymph # [place] # Baso # Seg Neutrophils % Seg Neuts % (Manual) Lymphocytes % (Manual) Monocytes % (Manual) Eosinophils % (Manual) Basophils % (Manual) Nucleated RBC % Seg Neutrophils # Seg Neutrophils # Man Lymphocytes # (Manual) Monocytes # (Manual) Eosinophils # (Manual) Basophils # (Manual) PT INR Fibrinogen dRVVT Confirm Interp Factor V Activity POC ABG pH POC ABG pCO2 POC ABG pO2 ABG pO2 ABG HCO3 ABG Base Excess ABG Hemoglobin Oxyhemoglobin Sodium 136 L Potassium 3.4 L Chloride 94.6 L Carbon Dioxide BUN 68 H Creatinine 2.9 H Glucose 105 H POC Glucose 123 H 128 H Lactic Acid Calcium Ionized Calcium Phosphorus Magnesium Direct Bilirubin AST ALT Alkaline Phosphatase Lactate Dehydrogenase Troponin T C-Reactive Protein Total Protein Albumin Prealbumin Triglycerides Cholesterol LDL Cholesterol Direct HDL Cholesterol 25-OH Vitamin D Total PTH Intact Urine pH Urine WBC (Auto) Urine Creatinine Urine Total Protein Fluid Total Protein Vancomycin Trough Rheumatoid Factor Complement C4 Miscellaneous Test Crossmatch 03/13/17 03/13/17 03/14/17 17:39 21:53 03:30 WBC RBC Hgb Hct MCV MCH MCHC RDW Plt Count Lymph % (Auto) [place] % (Auto) Lymph # [place] # Baso # Seg Neutrophils % Seg Neuts % (Manual) Lymphocytes % (Manual) Monocytes % (Manual) Eosinophils % (Manual) Basophils % (Manual) Nucleated RBC % Seg Neutrophils # Seg Neutrophils # Man Lymphocytes # (Manual) Monocytes # (Manual) Eosinophils # (Manual) Basophils # (Manual) PT INR Fibrinogen dRVVT Confirm Interp Factor V Activity POC ABG pH POC ABG pCO2 POC ABG pO2 ABG pO2 ABG HCO3 ABG Base Excess ABG Hemoglobin Oxyhemoglobin Sodium 133 L Potassium Chloride 95.7 L Carbon Dioxide 21 L BUN 37 H Creatinine 1.8 H Glucose 138 H POC Glucose 160 H 147 H Lactic Acid Calcium 8.1 L Ionized Calcium Phosphorus 2.10 L D Magnesium 1.60 L Direct Bilirubin AST ALT Alkaline Phosphatase Lactate Dehydrogenase Troponin T C-Reactive Protein Total Protein Albumin Prealbumin Triglycerides Cholesterol LDL Cholesterol Direct HDL Cholesterol 25-OH Vitamin D Total PTH Intact Urine pH Urine WBC (Auto) Urine Creatinine Urine Total Protein Fluid Total Protein Vancomycin Trough Rheumatoid Factor Complement C4 Miscellaneous Test Crossmatch 03/14/17 03/14/17 03/14/17 05:19 11:08 12:51 WBC RBC Hgb Hct MCV MCH MCHC RDW Plt Count Lymph % (Auto) [place] % (Auto) Lymph # [place] # Baso # Seg Neutrophils % Seg Neuts % (Manual) Lymphocytes % (Manual) Monocytes % (Manual) Eosinophils % (Manual) Basophils % (Manual) Nucleated RBC % Seg Neutrophils # Seg Neutrophils # Man Lymphocytes # (Manual) Monocytes # (Manual) Eosinophils # (Manual) Basophils # (Manual) PT INR Fibrinogen dRVVT Confirm Interp Factor V Activity POC ABG pH POC ABG pCO2 POC ABG pO2 ABG pO2 ABG HCO3 ABG Base Excess ABG Hemoglobin Oxyhemoglobin Sodium Potassium Chloride Carbon Dioxide BUN Creatinine Glucose POC Glucose 159 H 144 H Lactic Acid Calcium Ionized Calcium Phosphorus Magnesium Direct Bilirubin AST ALT Alkaline Phosphatase Lactate Dehydrogenase Troponin T C-Reactive Protein 19.50 H Total Protein Albumin Prealbumin Triglycerides Cholesterol LDL Cholesterol Direct HDL Cholesterol 25-OH Vitamin D Total PTH Intact Urine pH Urine WBC (Auto) Urine Creatinine Urine Total Protein Fluid Total Protein Vancomycin Trough Rheumatoid Factor Complement C4 Miscellaneous Test Crossmatch 03/14/17 03/14/17 03/14/17 14:30 16:50 16:55 WBC 17.6 H RBC 2.18 L Hgb 6.0 L Hct 19.8 L* MCV MCH MCHC RDW 19.9 H Plt Count Lymph % (Auto) [place] % (Auto) Lymph # [place] # Baso # Seg Neutrophils % Seg Neuts % (Manual) Lymphocytes % (Manual) 13.0 L Monocytes % (Manual) 15.0 H Eosinophils % (Manual) Basophils % (Manual) Nucleated RBC % Seg Neutrophils # Seg Neutrophils # Man 12.3 H Lymphocytes # (Manual) Monocytes # (Manual) 2.6 H Eosinophils # (Manual) Basophils # (Manual) PT INR Fibrinogen dRVVT Confirm Interp Factor V Activity POC ABG pH POC ABG pCO2 POC ABG pO2 ABG pO2 ABG HCO3 ABG Base Excess ABG Hemoglobin Oxyhemoglobin Sodium Potassium Chloride Carbon Dioxide BUN Creatinine Glucose POC Glucose 156 H Lactic Acid Calcium Ionized Calcium Phosphorus Magnesium Direct Bilirubin AST ALT Alkaline Phosphatase Lactate Dehydrogenase Troponin T C-Reactive Protein Total Protein Albumin Prealbumin Triglycerides Cholesterol LDL Cholesterol Direct HDL Cholesterol 25-OH Vitamin D Total PTH Intact Urine pH Urine WBC (Auto) Urine Creatinine Urine Total Protein Fluid Total Protein Vancomycin Trough Rheumatoid Factor Complement C4 Miscellaneous Test Crossmatch See Detail 03/14/17 03/15/17 03/15/17 23:31 05:03 05:03 WBC 15.2 H RBC 2.42 L Hgb 6.9 L Hct 22.2 L MCV MCH MCHC RDW 18.4 H Plt Count Lymph % (Auto) [place] % (Auto) Lymph # [place] # Baso # Seg Neutrophils % Seg Neuts % (Manual) Lymphocytes % (Manual) Monocytes % (Manual) Eosinophils % (Manual) Basophils % (Manual) Nucleated RBC % Seg Neutrophils # Seg Neutrophils # Man Lymphocytes # (Manual) Monocytes # (Manual) Eosinophils # (Manual) Basophils # (Manual) PT INR Fibrinogen dRVVT Confirm Interp Factor V Activity POC ABG pH POC ABG pCO2 POC ABG pO2 ABG pO2 ABG HCO3 ABG Base Excess ABG Hemoglobin Oxyhemoglobin Sodium Potassium 3.5 L Chloride Carbon Dioxide BUN 54 H Creatinine 2.6 H Glucose 127 H POC Glucose 176 H Lactic Acid Calcium Ionized Calcium Phosphorus Magnesium Direct Bilirubin AST ALT Alkaline Phosphatase Lactate Dehydrogenase Troponin T C-Reactive Protein Total Protein Albumin Prealbumin Triglycerides Cholesterol LDL Cholesterol Direct HDL Cholesterol 25-OH Vitamin D Total PTH Intact Urine pH Urine WBC (Auto) Urine Creatinine Urine Total Protein Fluid Total Protein Vancomycin Trough Rheumatoid Factor Complement C4 Miscellaneous Test Crossmatch 03/15/17 03/15/17 03/15/17 05:04 12:52 17:46 WBC RBC Hgb Hct MCV MCH MCHC RDW Plt Count Lymph % (Auto) [place] % (Auto) Lymph # [place] # Baso # Seg Neutrophils % Seg Neuts % (Manual) Lymphocytes % (Manual) Monocytes % (Manual) Eosinophils % (Manual) Basophils % (Manual) Nucleated RBC % Seg Neutrophils # Seg Neutrophils # Man Lymphocytes # (Manual) Monocytes # (Manual) Eosinophils # (Manual) Basophils # (Manual) PT INR Fibrinogen dRVVT Confirm Interp Factor V Activity POC ABG pH POC ABG pCO2 POC ABG pO2 ABG pO2 ABG HCO3 ABG Base Excess ABG Hemoglobin Oxyhemoglobin Sodium Potassium Chloride Carbon Dioxide BUN Creatinine Glucose POC Glucose 106 H 141 H 170 H Lactic Acid Calcium Ionized Calcium Phosphorus Magnesium Direct Bilirubin AST ALT Alkaline Phosphatase Lactate Dehydrogenase Troponin T C-Reactive Protein Total Protein Albumin Prealbumin Triglycerides Cholesterol LDL Cholesterol Direct HDL Cholesterol 25-OH Vitamin D Total PTH Intact Urine pH Urine WBC (Auto) Urine Creatinine Urine Total Protein Fluid Total Protein Vancomycin Trough Rheumatoid Factor Complement C4 Miscellaneous Test Crossmatch 03/16/17 03/16/17 03/16/17 00:16 03:35 05:15 WBC RBC Hgb Hct MCV MCH MCHC RDW Plt Count Lymph % (Auto) [place] % (Auto) Lymph # [place] # Baso # Seg Neutrophils % Seg Neuts % (Manual) Lymphocytes % (Manual) Monocytes % (Manual) Eosinophils % (Manual) Basophils % (Manual) Nucleated RBC % Seg Neutrophils # Seg Neutrophils # Man Lymphocytes # (Manual) Monocytes # (Manual) Eosinophils # (Manual) Basophils # (Manual) PT INR Fibrinogen dRVVT Confirm Interp Factor V Activity POC ABG pH POC ABG pCO2 POC ABG pO2 ABG pO2 ABG HCO3 ABG Base Excess ABG Hemoglobin Oxyhemoglobin Sodium Potassium 3.5 L Chloride Carbon Dioxide BUN 26 H Creatinine 1.3 H Glucose 129 H POC Glucose 120 H 140 H Lactic Acid Calcium 7.9 L Ionized Calcium Phosphorus 2.20 L D Magnesium Direct Bilirubin AST ALT Alkaline Phosphatase Lactate Dehydrogenase Troponin T C-Reactive Protein Total Protein Albumin Prealbumin Triglycerides Cholesterol LDL Cholesterol Direct HDL Cholesterol 25-OH Vitamin D Total PTH Intact Urine pH Urine WBC (Auto) Urine Creatinine Urine Total Protein Fluid Total Protein Vancomycin Trough Rheumatoid Factor Complement C4 Miscellaneous Test Crossmatch 03/16/17 03/16/17 03/17/17 12:26 18:16 00:00 WBC RBC Hgb Hct MCV MCH MCHC RDW Plt Count Lymph % (Auto) [place] % (Auto) Lymph # [place] # Baso # Seg Neutrophils % Seg Neuts % (Manual) Lymphocytes % (Manual) Monocytes % (Manual) Eosinophils % (Manual) Basophils % (Manual) Nucleated RBC % Seg Neutrophils # Seg Neutrophils # Man Lymphocytes # (Manual) Monocytes # (Manual) Eosinophils # (Manual) Basophils # (Manual) PT INR Fibrinogen dRVVT Confirm Interp Factor V Activity POC ABG pH POC ABG pCO2 POC ABG pO2 ABG pO2 ABG HCO3 ABG Base Excess ABG Hemoglobin Oxyhemoglobin Sodium Potassium Chloride Carbon Dioxide BUN Creatinine Glucose POC Glucose 133 H 107 H 124 H Lactic Acid Calcium Ionized Calcium Phosphorus Magnesium Direct Bilirubin AST ALT Alkaline Phosphatase Lactate Dehydrogenase Troponin T C-Reactive Protein Total Protein Albumin Prealbumin Triglycerides Cholesterol LDL Cholesterol Direct HDL Cholesterol 25-OH Vitamin D Total PTH Intact Urine pH Urine WBC (Auto) Urine Creatinine Urine Total Protein Fluid Total Protein Vancomycin Trough Rheumatoid Factor Complement C4 Miscellaneous Test Crossmatch 03/17/17 03/17/17 03/17/17 04:00 05:57 12:00 WBC RBC Hgb Hct MCV MCH MCHC RDW Plt Count Lymph % (Auto) [place] % (Auto) Lymph # [place] # Baso # Seg Neutrophils % Seg Neuts % (Manual) Lymphocytes % (Manual) Monocytes % (Manual) Eosinophils % (Manual) Basophils % (Manual) Nucleated RBC % Seg Neutrophils # Seg Neutrophils # Man Lymphocytes # (Manual) Monocytes # (Manual) Eosinophils # (Manual) Basophils # (Manual) PT INR Fibrinogen dRVVT Confirm Interp Factor V Activity POC ABG pH POC ABG pCO2 POC ABG pO2 ABG pO2 ABG HCO3 ABG Base Excess ABG Hemoglobin Oxyhemoglobin Sodium 134 L Potassium Chloride 95.1 L Carbon Dioxide BUN 37 H Creatinine 1.8 H Glucose 115 H POC Glucose 141 H 129 H Lactic Acid Calcium 8.3 L Ionized Calcium Phosphorus 5.50 H D Magnesium Direct Bilirubin AST ALT Alkaline Phosphatase Lactate Dehydrogenase Troponin T C-Reactive Protein Total Protein Albumin Prealbumin Triglycerides Cholesterol LDL Cholesterol Direct HDL Cholesterol 25-OH Vitamin D Total PTH Intact Urine pH Urine WBC (Auto) Urine Creatinine Urine Total Protein Fluid Total Protein Vancomycin Trough Rheumatoid Factor Complement C4 Miscellaneous Test Crossmatch 03/17/17 03/18/17 03/18/17 17:23 00:04 04:00 WBC RBC Hgb Hct MCV MCH MCHC RDW Plt Count Lymph % (Auto) [place] % (Auto) Lymph # [place] # Baso # Seg Neutrophils % Seg Neuts % (Manual) Lymphocytes % (Manual) Monocytes % (Manual) Eosinophils % (Manual) Basophils % (Manual) Nucleated RBC % Seg Neutrophils # Seg Neutrophils # Man Lymphocytes # (Manual) Monocytes # (Manual) Eosinophils # (Manual) Basophils # (Manual) PT INR Fibrinogen dRVVT Confirm Interp Factor V Activity POC ABG pH POC ABG pCO2 POC ABG pO2 ABG pO2 ABG HCO3 ABG Base Excess ABG Hemoglobin Oxyhemoglobin Sodium Potassium Chloride Carbon Dioxide BUN 23 H Creatinine 1.3 H Glucose 122 H POC Glucose 155 H 126 H Lactic Acid Calcium 8.3 L Ionized Calcium Phosphorus Magnesium Direct Bilirubin AST ALT Alkaline Phosphatase Lactate Dehydrogenase Troponin T C-Reactive Protein Total Protein Albumin Prealbumin Triglycerides Cholesterol LDL Cholesterol Direct HDL Cholesterol 25-OH Vitamin D Total PTH Intact Urine pH Urine WBC (Auto) Urine Creatinine Urine Total Protein Fluid Total Protein Vancomycin Trough Rheumatoid Factor Complement C4 Miscellaneous Test Crossmatch 03/18/17 03/18/17 03/18/17 05:47 11:15 18:07 WBC RBC Hgb Hct MCV MCH MCHC RDW Plt Count Lymph % (Auto) [place] % (Auto) Lymph # [place] # Baso # Seg Neutrophils % Seg Neuts % (Manual) Lymphocytes % (Manual) Monocytes % (Manual) Eosinophils % (Manual) Basophils % (Manual) Nucleated RBC % Seg Neutrophils # Seg Neutrophils # Man Lymphocytes # (Manual) Monocytes # (Manual) Eosinophils # (Manual) Basophils # (Manual) PT INR Fibrinogen dRVVT Confirm Interp Factor V Activity POC ABG pH POC ABG pCO2 POC ABG pO2 ABG pO2 ABG HCO3 ABG Base Excess ABG Hemoglobin Oxyhemoglobin Sodium Potassium Chloride Carbon Dioxide BUN Creatinine Glucose POC Glucose 139 H 138 H 134 H Lactic Acid Calcium Ionized Calcium Phosphorus Magnesium Direct Bilirubin AST ALT Alkaline Phosphatase Lactate Dehydrogenase Troponin T C-Reactive Protein Total Protein Albumin Prealbumin Triglycerides Cholesterol LDL Cholesterol Direct HDL Cholesterol 25-OH Vitamin D Total PTH Intact Urine pH Urine WBC (Auto) Urine Creatinine Urine Total Protein Fluid Total Protein Vancomycin Trough Rheumatoid Factor Complement C4 Miscellaneous Test Crossmatch 03/19/17 03/19/17 03/19/17 00:34 06:11 11:15 WBC RBC Hgb Hct MCV MCH MCHC RDW Plt Count Lymph % (Auto) [place] % (Auto) Lymph # [place] # Baso # Seg Neutrophils % Seg Neuts % (Manual) Lymphocytes % (Manual) Monocytes % (Manual) Eosinophils % (Manual) Basophils % (Manual) Nucleated RBC % Seg Neutrophils # Seg Neutrophils # Man Lymphocytes # (Manual) Monocytes # (Manual) Eosinophils # (Manual) Basophils # (Manual) PT INR Fibrinogen dRVVT Confirm Interp Factor V Activity POC ABG pH POC ABG pCO2 POC ABG pO2 ABG pO2 ABG HCO3 ABG Base Excess ABG Hemoglobin Oxyhemoglobin Sodium Potassium Chloride Carbon Dioxide BUN Creatinine Glucose POC Glucose 139 H 146 H 129 H Lactic Acid Calcium Ionized Calcium Phosphorus Magnesium Direct Bilirubin AST ALT Alkaline Phosphatase Lactate Dehydrogenase Troponin T C-Reactive Protein Total Protein Albumin Prealbumin Triglycerides Cholesterol LDL Cholesterol Direct HDL Cholesterol 25-OH Vitamin D Total PTH Intact Urine pH Urine WBC (Auto) Urine Creatinine Urine Total Protein Fluid Total Protein Vancomycin Trough Rheumatoid Factor Complement C4 Miscellaneous Test Crossmatch 03/19/17 03/19/17 03/19/17 17:28 23:23 Unknown WBC RBC Hgb Hct MCV MCH MCHC RDW Plt Count Lymph % (Auto) [place] % (Auto) Lymph # [place] # Baso # Seg Neutrophils % Seg Neuts % (Manual) Lymphocytes % (Manual) Monocytes % (Manual) Eosinophils % (Manual) Basophils % (Manual) Nucleated RBC % Seg Neutrophils # Seg Neutrophils # Man Lymphocytes # (Manual) Monocytes # (Manual) Eosinophils # (Manual) Basophils # (Manual) PT INR Fibrinogen dRVVT Confirm Interp Factor V Activity POC ABG pH POC ABG pCO2 POC ABG pO2 ABG pO2 ABG HCO3 ABG Base Excess ABG Hemoglobin Oxyhemoglobin Sodium Potassium Chloride 96.8 L Carbon Dioxide BUN 34 H Creatinine 1.9 H Glucose 138 H POC Glucose 142 H 144 H Lactic Acid Calcium Ionized Calcium Phosphorus 5.20 H D Magnesium Direct Bilirubin AST ALT Alkaline Phosphatase Lactate Dehydrogenase Troponin T C-Reactive Protein Total Protein Albumin Prealbumin Triglycerides Cholesterol LDL Cholesterol Direct HDL Cholesterol 25-OH Vitamin D Total PTH Intact Urine pH Urine WBC (Auto) Urine Creatinine Urine Total Protein Fluid Total Protein Vancomycin Trough Rheumatoid Factor Complement C4 Miscellaneous Test Crossmatch 03/20/17 03/20/17 03/20/17 13:55 16:00 23:38 WBC 13.8 H RBC 2.21 L Hgb 6.6 L Hct 21.2 L MCV MCH MCHC RDW 19.7 H Plt Count Lymph % (Auto) [place] % (Auto) Lymph # [place] # 1.0 H Baso # Seg Neutrophils % 72.0 H Seg Neuts % (Manual) Lymphocytes % (Manual) Monocytes % (Manual) Eosinophils % (Manual) Basophils % (Manual) Nucleated RBC % Seg Neutrophils # 9.9 H Seg Neutrophils # Man Lymphocytes # (Manual) Monocytes # (Manual) Eosinophils # (Manual) Basophils # (Manual) PT INR Fibrinogen dRVVT Confirm Interp Factor V Activity POC ABG pH POC ABG pCO2 POC ABG pO2 ABG pO2 ABG HCO3 ABG Base Excess ABG Hemoglobin Oxyhemoglobin Sodium Potassium Chloride Carbon Dioxide BUN Creatinine Glucose POC Glucose 163 H Lactic Acid Calcium Ionized Calcium Phosphorus Magnesium Direct Bilirubin AST ALT Alkaline Phosphatase Lactate Dehydrogenase Troponin T C-Reactive Protein Total Protein Albumin Prealbumin Triglycerides Cholesterol LDL Cholesterol Direct HDL Cholesterol 25-OH Vitamin D Total PTH Intact Urine pH Urine WBC (Auto) Urine Creatinine Urine Total Protein Fluid Total Protein Vancomycin Trough Rheumatoid Factor Complement C4 Miscellaneous Test Crossmatch See Detail 03/20/17 03/21/17 03/21/17 Unknown 04:57 05:20 WBC 15.3 H RBC 2.68 L Hgb 8.8 L Hct 24.6 L MCV MCH 33 H MCHC 36 H RDW 19.4 H Plt Count Lymph % (Auto) [place] % (Auto) Lymph # [place] # 1.1 H Baso # Seg Neutrophils % 76.8 H Seg Neuts % (Manual) Lymphocytes % (Manual) Monocytes % (Manual) Eosinophils % (Manual) Basophils % (Manual) Nucleated RBC % Seg Neutrophils # 11.7 H Seg Neutrophils # Man Lymphocytes # (Manual) Monocytes # (Manual) Eosinophils # (Manual) Basophils # (Manual) PT INR Fibrinogen dRVVT Confirm Interp Factor V Activity POC ABG pH POC ABG pCO2 POC ABG pO2 ABG pO2 ABG HCO3 ABG Base Excess ABG Hemoglobin Oxyhemoglobin Sodium Potassium Chloride 97.7 L Carbon Dioxide BUN 43 H Creatinine 2.2 H Glucose POC Glucose 111 H Lactic Acid Calcium Ionized Calcium Phosphorus 5.30 H Magnesium Direct Bilirubin AST ALT 6 L Alkaline Phosphatase Lactate Dehydrogenase Troponin T C-Reactive Protein Total Protein Albumin 0.9 L Prealbumin Triglycerides Cholesterol LDL Cholesterol Direct HDL Cholesterol 25-OH Vitamin D Total PTH Intact Urine pH Urine WBC (Auto) Urine Creatinine Urine Total Protein Fluid Total Protein Vancomycin Trough Rheumatoid Factor Complement C4 Miscellaneous Test Crossmatch 03/21/17 03/22/17 03/22/17 17:18 06:25 12:30 WBC RBC Hgb Hct MCV MCH MCHC RDW Plt Count Lymph % (Auto) [place] % (Auto) Lymph # [place] # Baso # Seg Neutrophils % Seg Neuts % (Manual) Lymphocytes % (Manual) Monocytes % (Manual) Eosinophils % (Manual) Basophils % (Manual) Nucleated RBC % Seg Neutrophils # Seg Neutrophils # Man Lymphocytes # (Manual) Monocytes # (Manual) Eosinophils # (Manual) Basophils # (Manual) PT INR Fibrinogen dRVVT Confirm Interp Factor V Activity POC ABG pH POC ABG pCO2 POC ABG pO2 ABG pO2 ABG HCO3 ABG Base Excess ABG Hemoglobin Oxyhemoglobin Sodium 136 L Potassium Chloride 97.7 L Carbon Dioxide BUN 31 H Creatinine 1.8 H Glucose 102 H POC Glucose 118 H 164 H Lactic Acid Calcium Ionized Calcium Phosphorus Magnesium Direct Bilirubin AST ALT Alkaline Phosphatase Lactate Dehydrogenase Troponin T C-Reactive Protein Total Protein Albumin Prealbumin Triglycerides Cholesterol LDL Cholesterol Direct HDL Cholesterol 25-OH Vitamin D Total PTH Intact Urine pH Urine WBC (Auto) Urine Creatinine Urine Total Protein Fluid Total Protein Vancomycin Trough Rheumatoid Factor Complement C4 Miscellaneous Test Crossmatch 03/23/17 03/23/17 03/23/17 05:30 05:30 11:18 WBC RBC 2.50 L Hgb 8.0 L Hct 24.1 L MCV MCH MCHC RDW 22.2 H Plt Count Lymph % (Auto) [place] % (Auto) Lymph # [place] # Baso # Seg Neutrophils % 72.3 H Seg Neuts % (Manual) Lymphocytes % (Manual) Monocytes % (Manual) Eosinophils % (Manual) Basophils % (Manual) Nucleated RBC % Seg Neutrophils # Seg Neutrophils # Man Lymphocytes # (Manual) Monocytes # (Manual) Eosinophils # (Manual) Basophils # (Manual) PT INR Fibrinogen dRVVT Confirm Interp Factor V Activity POC ABG pH POC ABG pCO2 POC ABG pO2 ABG pO2 ABG HCO3 ABG Base Excess ABG Hemoglobin Oxyhemoglobin Sodium 136 L Potassium Chloride Carbon Dioxide BUN Creatinine 1.4 H Glucose POC Glucose 111 H Lactic Acid Calcium 8.2 L Ionized Calcium Phosphorus 2.10 L D Magnesium 1.60 L Direct Bilirubin AST ALT Alkaline Phosphatase Lactate Dehydrogenase Troponin T C-Reactive Protein Total Protein Albumin Prealbumin Triglycerides Cholesterol LDL Cholesterol Direct HDL Cholesterol 25-OH Vitamin D Total PTH Intact Urine pH Urine WBC (Auto) Urine Creatinine Urine Total Protein Fluid Total Protein Vancomycin Trough Rheumatoid Factor Complement C4 Miscellaneous Test Crossmatch 03/24/17 03/24/17 03/24/17 05:50 11:18 17:43 WBC RBC Hgb Hct MCV MCH MCHC RDW Plt Count Lymph % (Auto) [place] % (Auto) Lymph # [place] # Baso # Seg Neutrophils % Seg Neuts % (Manual) Lymphocytes % (Manual) Monocytes % (Manual) Eosinophils % (Manual) Basophils % (Manual) Nucleated RBC % Seg Neutrophils # Seg Neutrophils # Man Lymphocytes # (Manual) Monocytes # (Manual) Eosinophils # (Manual) Basophils # (Manual) PT INR Fibrinogen dRVVT Confirm Interp Factor V Activity POC ABG pH POC ABG pCO2 POC ABG pO2 ABG pO2 ABG HCO3 ABG Base Excess ABG Hemoglobin Oxyhemoglobin Sodium Potassium Chloride Carbon Dioxide BUN 26 H Creatinine 1.9 H Glucose POC Glucose 133 H 135 H Lactic Acid Calcium Ionized Calcium Phosphorus Magnesium Direct Bilirubin AST ALT Alkaline Phosphatase Lactate Dehydrogenase Troponin T C-Reactive Protein Total Protein Albumin Prealbumin Triglycerides Cholesterol LDL Cholesterol Direct HDL Cholesterol 25-OH Vitamin D Total PTH Intact Urine pH Urine WBC (Auto) Urine Creatinine Urine Total Protein Fluid Total Protein Vancomycin Trough Rheumatoid Factor Complement C4 Miscellaneous Test Crossmatch 03/25/17 03/25/17 05:15 05:19 WBC RBC Hgb Hct MCV MCH MCHC RDW Plt Count Lymph % (Auto) [place] % (Auto) Lymph # [place] # Baso # Seg Neutrophils % Seg Neuts % (Manual) Lymphocytes % (Manual) Monocytes % (Manual) Eosinophils % (Manual) Basophils % (Manual) Nucleated RBC % Seg Neutrophils # Seg Neutrophils # Man Lymphocytes # (Manual) Monocytes # (Manual) Eosinophils # (Manual) Basophils # (Manual) PT INR Fibrinogen dRVVT Confirm Interp Factor V Activity POC ABG pH POC ABG pCO2 POC ABG pO2 ABG pO2 ABG HCO3 ABG Base Excess ABG Hemoglobin Oxyhemoglobin Sodium Potassium Chloride Carbon Dioxide BUN Creatinine 1.3 H Glucose POC Glucose 110 H Lactic Acid Calcium Ionized Calcium Phosphorus Magnesium Direct Bilirubin AST ALT Alkaline Phosphatase Lactate Dehydrogenase Troponin T C-Reactive Protein Total Protein Albumin Prealbumin Triglycerides Cholesterol LDL Cholesterol Direct HDL Cholesterol 25-OH Vitamin D Total PTH Intact Urine pH Urine WBC (Auto) Urine Creatinine Urine Total Protein Fluid Total Protein Vancomycin Trough Rheumatoid Factor Complement C4 Miscellaneous Test Crossmatch Allied health notes reviewed: nursing
--- NOTE | 2017-03-25 14:17 | Progress Note ---
Assessment and Plan Assessment * Oliguric acute kidney injury secondary to ATN on CKD - baseline SCr 1.7mg/dL; likely now ESRD --Patient's serum creatinine is noted to be low - due to wasting of muscle mass. Needs to be maintained on dialysis at this time. 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 * Note ID recommendations to remove femoral vas cath, discussed with vascular surgery * Abx per ID * Adjust Ca bath with dialysis * Rate control per cardiology * Transfuse pRBC per primary team. Epogen TIW prn * Vent management per pulm/CCM * Pressors prn for MAP>65 * Dose medications for renal function * Will see again on Monday Subjective Date of service: 03/25/17 Principal diagnosis: Acute resp failure on MVS; S/P Acute CVA; Acute Encephalopathy; JUANITA Interval history: 24h events reviewed Objective - Exam Narrative Exam: EXAM DEFERRED - Vital Signs Vital signs: Vital Signs - 12hr 03/25/17 03/25/17 03/25/17 02:22 02:30 02:45 Temperature Pulse Rate 99 H 109 H 108 H Pulse Rate [ From Monitor] Respiratory 13 14 Rate Blood Pressure 99/59 104/62 104/62 O2 Sat by Pulse 100 100 Oximetry 03/25/17 03/25/17 03/25/17 03:00 03:15 03:25 Temperature 99.2 F Pulse Rate 105 H 104 H Pulse Rate [ From Monitor] Respiratory 15 14 Rate Blood Pressure 98/62 98/62 O2 Sat by Pulse 100 Oximetry 03/25/17 03/25/17 03/25/17 03:30 03:45 04:00 Temperature Pulse Rate 103 H 104 H 103 H Pulse Rate [ From Monitor] Respiratory 15 14 11 L Rate Blood Pressure 104/62 104/62 102/63 O2 Sat by Pulse 100 100 Oximetry 03/25/17 03/25/17 03/25/17 04:15 04:30 04:45 Temperature Pulse Rate 100 H 101 H 100 H Pulse Rate [ From Monitor] Respiratory 14 14 17 Rate Blood Pressure 102/63 96/61 96/61 O2 Sat by Pulse 100 100 100 Oximetry 03/25/17 03/25/17 03/25/17 05:00 05:15 05:30 Temperature Pulse Rate 108 H 108 H 108 H Pulse Rate [ From Monitor] Respiratory 13 12 15 Rate Blood Pressure 108/71 108/71 111/67 O2 Sat by Pulse 99 99 100 Oximetry 03/25/17 03/25/17 03/25/17 05:45 06:00 06:15 Temperature Pulse Rate 105 H 102 H 105 H Pulse Rate [ From Monitor] Respiratory 23 13 20 Rate Blood Pressure 111/67 97/56 97/56 O2 Sat by Pulse 96 100 98 Oximetry 03/25/17 03/25/17 03/25/17 06:30 06:45 07:00 Temperature Pulse Rate 102 H 103 H 103 H Pulse Rate [ From Monitor] Respiratory 16 13 13 Rate Blood Pressure 94/54 94/54 100/62 O2 Sat by Pulse 100 100 Oximetry 03/25/17 03/25/17 03/25/17 07:15 07:30 07:45 Temperature Pulse Rate 102 H 100 H 105 H Pulse Rate [ From Monitor] Respiratory 14 17 21 Rate Blood Pressure 100/62 95/49 95/49 O2 Sat by Pulse 100 90 89 Oximetry 03/25/17 03/25/17 03/25/17 08:00 08:15 08:30 Temperature 99.9 F H Pulse Rate 105 H 101 H 105 H Pulse Rate [ 105 H From Monitor] Respiratory 18 17 17 Rate Blood Pressure 103/59 103/59 92/55 O2 Sat by Pulse 98 91 92 Oximetry 03/25/17 03/25/17 03/25/17 08:45 08:57 09:00 Temperature Pulse Rate 106 H 105 H 88 Pulse Rate [ From Monitor] Respiratory 11 L 15 Rate Blood Pressure 92/55 103/59 113/72 O2 Sat by Pulse 100 100 Oximetry 03/25/17 03/25/17 03/25/17 09:15 09:30 09:44 Temperature Pulse Rate 114 H 108 H 105 H Pulse Rate [ From Monitor] Respiratory 12 15 22 Rate Blood Pressure 113/72 91/54 103/59 O2 Sat by Pulse 99 98 100 Oximetry 03/25/17 03/25/17 03/25/17 09:45 10:00 12:00 Temperature 99.8 F H Pulse Rate 107 H 110 H Pulse Rate [ From Monitor] Respiratory 21 21 Rate Blood Pressure 91/54 102/61 O2 Sat by Pulse 100 100 Oximetry 03/25/17 13:22 Temperature Pulse Rate 101 H Pulse Rate [ From Monitor] Respiratory Rate Blood Pressure 102/62 O2 Sat by Pulse Oximetry - Lab 03/23/17 05:30 03/25/17 05:15 Most recent lab results ABG pH 7.450 pH Units (7.350-7.450) 12/05/16 Unknown ABG pCO2 29.6 mm Hg 12/05/16 Unknown ABG pO2 75.2 mm Hg (80.0-90.0) L 12/05/16 Unknown ABG HCO3 20.1 mmol/L (20.0-26.0) 12/05/16 Unknown ABG O2 Saturation 96.8 % (95.0-99.0) 12/05/16 Unknown Calcium 8.6 mg/dL (8.4-10.2) 03/25/17 05:15 Phosphorus 2.70 mg/dL (2.5-4.5) D 03/25/17 05:15 Magnesium 1.90 mg/dL (1.7-2.3) 03/25/17 05:15 Urine Creatinine 19.7 mg/dL (0.1-20.0) 11/12/16 10:18 Urine Sodium 36 mEq/L 09/16/16 19:19 Urine Total Protein 16 mg/dL (5-11.8) H 09/16/16 19:19
[2017-03-25] MEDS: TRANSDERM-SCOP TD SCH (18:36)
[2017-03-25] MEDS ORDERED: TPN ADULT IV SCH (20:00)
[2017-03-25] MEDS: CUBICIN IV SCH (21:07)
[2017-03-25] MEDS: NACL 0.9% IV SCH (21:07)
[2017-03-26] MEDS: HumuLIN R SUB-Q SCH ×4 (00:08→17:43)
[2017-03-26] MEDS: LOPRESSOR IV SCH ×4 (02:06→19:45)
[2017-03-26] MEDS: ZOSYN/NS 2.25 GM/50ML 2.25 GM/50 ML BAG IV SCH ×3 (06:45→21:31)
[2017-03-26] MEDS: DUONEB *Not for PRN Use IH SCH ×3 (08:56→19:49)
[2017-03-26] MEDS: PEPCID IV SCH (09:34)
[2017-03-26] MEDS: HEPARIN SUB-Q SCH ×2 (09:34→22:02)
[2017-03-26 10:08] LABS: Calcium 9.3 mg/dL (8.4-10.2)
--- NOTE | 2017-03-26 11:35 | Progress Note ---
Assessment and Plan Assessment and plan: --Status post cardiac arrest/anoxic encephalopathy/vegetative state --Large CVA with mass effect/anoxic brain injury --Acute respiratory failure/status post tracheostomy/ventilator dependent/ continue current management --Aspiration pneumonia/managed with multiple antibiotics per ID recommendations , continue current treatment --Perforated bowel/drainage of large fluid collection, --Peritonitis/gastric perforation/status post laparotomy/on TPN --A. fib with rapid ventricular rate/continue amiodarone --Sepsis/recurrent enterococcal infection/ID following/continue current antibiotics --Hypotension/septic shock requiring Levophed, closely monitor --End-stage renal disease; on hemodialysis, nephrology following --Multiple sacral decubiti stage III to stage IV, post debridement, continue wound care --Severe protein calorie malnutrition; continue TPN, supportive care --DO NOT RESUSCITATE status Very poor prognosis, family aware, recommend hospice, family not willing Unable to place in LTAC/SNF, Multiple social issues Plan of care discussed with the patient's nurse and case management History Interval history: Patient Seen and examined medical records reviewed Remains unresponsive, tracheostomy on vent Vital signs reviewed No new events reported by the nursing staff Hospitalist Physical - Constitutional Vitals: Temp Pulse Resp BP Pulse Ox 98.7 F 102 H 16 115/73 101 H 03/26/17 08:00 03/26/17 09:06 03/26/17 09:06 03/26/17 08:50 03/26/17 08:50 General appearance: Present: no acute distress, cachectic, other (spontaneous opening of eyes, unresponsive) - EENT Eyes: Present: PERRL, EOM intact - Neck Neck: Present: supple, normal ROM - Respiratory Respiratory effort: normal Respiratory: bilateral: diminished, negative: rales, rhonchi, other - Cardiovascular Rhythm: regular Heart Sounds: Present: S1 & S2 - Extremities Extremities: abnormal (contracted) Extremity abnormal: edema - Abdominal General gastrointestinal: soft, non-tender, non-distended, normal bowel sounds - Integumentary Integumentary: Present: clear, warm - Psychiatric Psychiatric: other (uncommunicative) - Neurologic Neurologic: other (uncommunicative) Results - Labs CBC & Chem 7: 03/23/17 05:30 03/26/17 09:35 Labs: Laboratory Last Values WBC 10.4 K/mm3 (4.5-11.0) 03/23/17 05:30 RBC 2.50 M/mm3 (3.65-5.03) L 03/23/17 05:30 Hgb 8.0 gm/dl (10.1-14.3) L 03/23/17 05:30 Hct 24.1 % (30.3-42.9) L 03/23/17 05:30 MCV 96 fl (79-97) 03/23/17 05:30 MCH 32 pg (28-32) 03/23/17 05:30 MCHC 33 % (30-34) 03/23/17 05:30 RDW 22.2 % (13.2-15.2) H 03/23/17 05:30 Plt Count 183 K/mm3 (140-440) 03/23/17 05:30 Lymph % (Auto) 20.0 % (13.4-35.0) 03/23/17 05:30 [place] % (Auto) 5.9 % (0.0-7.3) 03/23/17 05:30 Eos % (Auto) 0.8 % (0.0-4.3) 03/23/17 05:30 Baso % (Auto) 1.0 % (0.0-1.8) 03/23/17 05:30 Lymph # 2.1 K/mm3 (1.2-5.4) 03/23/17 05:30 [place] # 0.6 K/mm3 (0.0-0.8) 03/23/17 05:30 Eos # 0.1 K/mm3 (0.0-0.4) 03/23/17 05:30 Baso # 0.1 K/mm3 (0.0-0.1) 03/23/17 05:30 Add Manual Diff Complete 03/14/17 14:30 Total Counted 100 03/14/17 14:30 Seg Neutrophils % 72.3 % (40.0-70.0) H 03/23/17 05:30 Seg Neuts % (Manual) 70.0 % (40.0-70.0) 03/14/17 14:30 Band Neutrophils % 0 % 03/14/17 14:30 Lymphocytes % (Manual) 13.0 % (13.4-35.0) L 03/14/17 14:30 Reactive Lymphs % (Man) 1.0 % 03/14/17 14:30 Monocytes % (Manual) 15.0 % (0.0-7.3) H 03/14/17 14:30 Eosinophils % (Manual) 1.0 % (0.0-4.3) 03/14/17 14:30 Basophils % (Manual) 0 % (0.0-1.8) 03/14/17 14:30 Metamyelocytes % 0 % 03/14/17 14:30 Myelocytes % 0 % 03/14/17 14:30 Promyelocytes % 0 % 03/14/17 14:30 Blast Cells % 0 % 03/14/17 14:30 Nucleated RBC % Not Reportable 03/14/17 14:30 Seg Neutrophils # 7.5 K/mm3 (1.8-7.7) 03/23/17 05:30 Seg Neutrophils # Man 12.3 K/mm3 (1.8-7.7) H 03/14/17 14:30 Band Neutrophils # 0.0 K/mm3 03/14/17 14:30 Lymphocytes # (Manual) 2.3 K/mm3 (1.2-5.4) 03/14/17 14:30 Abs React Lymphs (Man) 0.2 K/mm3 03/14/17 14:30 Monocytes # (Manual) 2.6 K/mm3 (0.0-0.8) H 03/14/17 14:30 Eosinophils # (Manual) 0.2 K/mm3 (0.0-0.4) 03/14/17 14:30 Basophils # (Manual) 0.0 K/mm3 (0.0-0.1) 03/14/17 14:30 Metamyelocytes # 0.0 K/mm3 03/14/17 14:30 Myelocytes # 0.0 K/mm3 03/14/17 14:30 Promyelocytes # 0.0 K/mm3 03/14/17 14:30 Blast Cells # 0.0 K/mm3 03/14/17 14:30 Pathologist Review 09/13/16 04:00 WBC Morphology Not Reportable 03/14/17 14:30 Hypersegmented Neuts Not Reportable 03/14/17 14:30 Hyposegmented Neuts Not Reportable 03/14/17 14:30 Hypogranular Neuts Not Reportable 03/14/17 14:30 Smudge Cells Not Reportable 03/14/17 14:30 Toxic Granulation Not Reportable 03/14/17 14:30 Toxic Vacuolation Not Reportable 03/14/17 14:30 Dohle Bodies Not Reportable 03/14/17 14:30 Pelger-Huet Anomaly Not Reportable 03/14/17 14:30 Jasmina Rods Not Reportable 03/14/17 14:30 Platelet Estimate Consistent w auto 03/14/17 14:30 Clumped Platelets Not Reportable 03/14/17 14:30 Plt Clumps, EDTA Not Reportable 03/14/17 14:30 Large Platelets Not Reportable 03/14/17 14:30 Giant Platelets Not Reportable 03/14/17 14:30 Platelet Satelliting Not Reportable 03/14/17 14:30 Plt Morphology Comment Not Reportable 03/14/17 14:30 RBC Morphology Not Reportable 03/14/17 14:30 Dimorphic RBCs Not Reportable 03/14/17 14:30 Polychromasia Not Reportable 03/14/17 14:30 Hypochromasia 2+ 03/14/17 14:30 Poikilocytosis Not Reportable 03/14/17 14:30 Anisocytosis 1+ 03/14/17 14:30 Microcytosis Not Reportable 03/14/17 14:30 Macrocytosis Not Reportable 03/14/17 14:30 Spherocytes Not Reportable 03/14/17 14:30 Pappenheimer Bodies Not Reportable 03/14/17 14:30 Sickle Cells Not Reportable 03/14/17 14:30 Target Cells Not Reportable 03/14/17 14:30 Tear Drop Cells Not Reportable 03/14/17 14:30 Ovalocytes Not Reportable 03/14/17 14:30 Stomatocytes 2+ 03/14/17 14:30 Helmet Cells Not Reportable 03/14/17 14:30 [place] Bodies Not Reportable 03/14/17 14:30 Denio Rings Not Reportable 03/14/17 14:30 [place] Cells Not Reportable 03/14/17 14:30 Bite Cells Not Reportable 03/14/17 14:30 Crenated Cell Not Reportable 03/14/17 14:30 Elliptocytes Not Reportable 03/14/17 14:30 Acanthocytes (Spur) Not Reportable 03/14/17 14:30 Rouleaux Not Reportable 03/14/17 14:30 Hemoglobin C Crystals Not Reportable 03/14/17 14:30 Schistocytes Not Reportable 03/14/17 14:30 Malaria parasites Not Reportable 03/14/17 14:30 ESR > 140.0 mm/Hr (0-20) 09/08/16 11:48 Jun Bodies Not Reportable 03/14/17 14:30 Hem Pathologist Commnt No 03/14/17 14:30 PT 15.4 Sec. (12.2-14.9) H 01/13/17 15:50 INR 1.16 (0.87-1.13) H 01/13/17 15:50 APTT 33.0 Sec. (24.2-36.6) 10/09/16 03:45 Thrombin Time 16.8 Sec. (15.1-19.6) 09/03/16 00:10 Fibrinogen 750 mg/dl (211-480) H 09/08/16 11:48 Lupus Anticoagulant see below 09/12/16 09:59 LA PTT Baseline See scanned report 09/12/16 09:59 dRVVT Confirm Interp Positive (Negative) H 09/12/16 09:59 dRVVT Screen 50:50 See scanned report 09/12/16 09:59 dRVVT Mix Interpret See scanned report 09/12/16 09:59 Protein C Antigen 122 % (70-140) 09/08/16 15:35 Free Protein S 97 % normal (50-147) 09/08/16 15:35 Total Protein S 109 % (70-140) 09/08/16 15:35 Antithrombin III Ag 100 % (80-120) 09/08/16 15:35 Heparin Anti-Xa, Unfract Negative (Negative) 09/29/16 13:35 Factor V Activity 182 % (65-150) H 09/08/16 15:35 POC ABG pH 7.518 (7.35-7.45) H 03/03/17 20:17 ABG pH 7.450 pH Units (7.350-7.450) 12/05/16 Unknown POC ABG pCO2 28.8 (35-45) L 03/03/17 20:17 ABG pCO2 29.6 mm Hg 12/05/16 Unknown POC ABG pO2 61 (80-105) L 03/03/17 20: ABG pO2 75.2 mm Hg (80.0-90.0) L 12/05/16 Unknown POC ABG HCO3 23.4 03/03/17 20: ABG HCO3 20.1 mmol/L (20.0-26.0) 12/05/16 Unknown POC ABG Total CO2 24 03/03/17 20: POC ABG O2 Sat 94 03/03/17 20: ABG O2 Saturation 96.8 % (95.0-99.0) 12/05/16 Unknown ABG O2 Content 9.9 (0.0-44) 12/05/16 Unknown POC ABG Base Excess 0 03/03/17 20: ABG Base Excess -3.4 mmol/L (-2.0-3.0) L 12/05/16 Unknown ABG Hemoglobin 7.4 gm/dl (12.0-16.0) L 12/05/16 Unknown ABG Carboxyhemoglobin 1.8 % (0.0-5.0) 12/05/16 Unknown ABG Methemoglobin 0.6 % (0.0-1.5) 12/05/16 Unknown Oxyhemoglobin 94.5 % (95.0-99.0) L 12/05/16 Unknown FiO2 40 % 03/03/17 20:17 Sodium 140 mmol/L (137-145) 03/26/17 09:35 Potassium 4.3 mmol/L (3.6-5.0) 03/26/17 09:35 Chloride 99.2 mmol/L (98-107) 03/26/17 09:35 Carbon Dioxide 28 mmol/L (22-30) 03/26/17 09:35 Anion Gap 17 mmol/L 03/26/17 09:35 BUN 25 mg/dL (7-17) H 03/26/17 09:35 Creatinine 2.0 mg/dL (0.7-1.2) H D 03/26/17 09:35 Estimated GFR 32 ml/min 03/26/17 09:35 BUN/Creatinine Ratio 13 % 03/26/17 09:35 Glucose 99 mg/dL (65-100) 03/26/17 09:35 POC Glucose 103 (70-105) 03/26/17 05:01 Osmolality 351 Mosm/kg 09/16/16 11:47 Lactic Acid 2.30 mmol/L (0.7-2.0) H* 01/09/17 08:22 Calcium 9.3 mg/dL (8.4-10.2) 03/26/17 09:35 Ionized Calcium 6.0 mg/dL (4.8-5.6) H 02/15/17 19:08 Phosphorus 4.60 mg/dL (2.5-4.5) H D 03/26/17 09:35 Magnesium 2.40 mg/dL (1.7-2.3) H 03/26/17 09:35 Total Bilirubin 0.40 mg/dL (0.1-1.2) 03/20/17 Unknown Direct Bilirubin 0.2 mg/dL (0-0.2) 01/28/17 04:00 Indirect Bilirubin 0.3 mg/dL 01/28/17 04:00 AST 11 units/L (5-40) 03/20/17 Unknown ALT 6 units/L (7-56) L 03/20/17 Unknown Alkaline Phosphatase 97 units/L (35-129) 03/20/17 Unknown Ammonia 27.0 umol/L (25-60) 09/07/16 08:37 Lactate Dehydrogenase 170 units/L (91-180) 01/13/17 15:50 Total Creatine Kinase 121 units/L (30-135) 09/29/16 20:12 CK-MB (CK-2) < 1.0 ng/mL (0.0-4.0) 09/29/16 20:12 CK-MB (CK-2) Rel Index 0.8 (0-4) 09/29/16 20:12 Troponin T 0.204 ng/mL (0.00-0.029) H* 09/29/16 20:12 C-Reactive Protein 19.50 mg/dL (0.00-1.30) H 03/14/17 12:51 Total Protein 6.9 g/dL (6.3-8.2) 03/20/17 Unknown Albumin 0.9 g/dL (3.9-5) L 03/20/17 Unknown Albumin/Globulin Ratio 0.2 % 03/20/17 Unknown Prealbumin 0.110 g/L (0.200-0.400) L 12/29/16 05:15 Triglycerides 94 mg/dL (2-149) 03/20/17 Unknown Cholesterol 31 mg/dL (50-199) L 09/29/16 20:12 LDL Cholesterol Direct 4 mg/dL (50-130) L 09/29/16 20:12 HDL Cholesterol 3 mg/dL (40-59) L 09/29/16 20:12 Cholesterol/HDL Ratio 10.33 % 09/29/16 20:12 Angiotensin Convert Enz See scanned report 09/08/16 11:48 Renin 0.99 ng/mL/h (0.25-5.82) 10/07/16 10:56 Aldosterone <1 ng/dL () 10/07/16 10:56 Aldosterone/Renin Dir see below 10/07/16 10:56 Serotonin Release Assay See scanned report 09/29/16 13:35 25-OH Vitamin D Total 13 ng/mL (30-100) L 02/15/17 19:08 25-Hydroxy Vitamin D2 . 02/15/17 19:08 25-Hydroxy Vitamin D3 . 02/15/17 19:08 TSH 1.010 mlU/mL (0.270-4.200) 09/07/16 08:37 HCG, Qual Negative (Negative) 09/03/16 00:10 PTH Intact 10.88 pg/mL (15-65) L 02/15/17 19:08 Total Cortisol 18.2 mcg/dL () 02/02/17 20:09 Urine Color Yellow (Yellow) 11/05/16 13:09 Urine Turbidity Clear (Clear) 11/05/16 13:09 Urine pH 9.0 (5.0-7.0) H 11/05/16 13:09 Ur Specific [place] 1.011 (1.003-1.030) 11/05/16 13:09 Urine Protein 100 mg/dl mg/dL (Negative) 11/05/16 13:09 Urine Glucose (UA) Neg mg/dL (Negative) 11/05/16 13:09 Urine Ketones Neg mg/dL (Negative) 11/05/16 13:09 Urine Blood Neg (Negative) 11/05/16 13:09 Urine Nitrite Neg (Negative) 11/05/16 13:09 Urine Bilirubin Neg (Negative) 11/05/16 13:09 Urine Urobilinogen < 2.0 mg/dL (<2.0) 11/05/16 13:09 Ur Leukocyte Esterase Neg (Negative) 11/05/16 13:09 Urine WBC (Auto) 4.0 /HPF (0.0-6.0) 11/05/16 13:09 Urine RBC (Auto) 1.0 /HPF (0.0-6.0) 11/05/16 13:09 U Epithel Cells (Auto) 1.0 /HPF (0-13.0) 10/07/16 18:30 Urine Bacteria (Auto) 4+ /HPF (Negative) 11/05/16 13:09 Urine WBC Clumps 2+ /HPF 09/07/16 02:47 Hyaline Casts 4 /LPF 09/07/16 02:47 Urine Mucus Few /HPF 10/07/16 18:30 Urine Yeast (Budding) 3+ /HPF 10/07/16 18:30 Urine Eosinophils None seen (None Seen) 09/07/16 16:00 Urine Total Volume 950 11/12/16 10:18 Urine Creatinine 19.7 mg/dL (0.1-20.0) 11/12/16 10:18 Height (in) 65.0 inches 11/12/16 10:18 Weight (lb) 181.0 lbs 11/12/16 10:18 Creatinine Clearance 5 11/12/16 10:18 Urine Sodium 36 mEq/L 09/16/16 19:19 Urine Total Protein 16 mg/dL (5-11.8) H 09/16/16 19:19 Fluid Type Pleural 01/13/17 12:10 Fluid Color Yellow 01/13/17 12:10 Fluid Appearance Hazy 01/13/17 12:10 Fluid WBC 182 /mm3 01/13/17 12:10 Fluid RBC 41 /mm3 01/13/17 12:10 Fluid Seg Neutrophils 85.0 % 01/13/17 12:10 Fluid Lymphocytes 8.0 % 01/13/17 12:10 Fluid Reactive Lymphs 0 % 01/13/17 12:10 Fluid Monocytes 6.0 % 01/13/17 12:10 Fluid Eosinophils 1.0 % 01/13/17 12:10 Fluid Basophils 0 % 01/13/17 12:10 Fluid Total Protein 3.0 (15.0-45.0) L 01/13/17 12:10 Fluid LDH 1322 01/13/17 12:10 Fluid Comment Diff performed 01/13/17 12:10 Vancomycin Trough 2.3 ug/mL (5.0-20.0) L 09/21/16 13:00 Random Vancomycin 26.0 ug/mL (0-40.0) 03/13/17 05:39 Urine Opiates Screen Presumptive negative 09/03/16 15:11 Urine Methadone Screen Presumptive positive 09/03/16 15:11 Ur Barbiturates Screen Presumptive positive 09/03/16 15:11 Ur Phencyclidine Scrn Presumptive negative 09/03/16 15:11 Ur Amphetamines Screen Presumptive negative 09/03/16 15:11 U Benzodiazepines Scrn Presumptive negative 09/03/16 15:11 Urine Cocaine Screen Presumptive negative 09/03/16 15:11 U Marijuana (THC) Screen Presumptive positive 09/03/16 15:11 Drugs of Abuse Note Disclamer 09/03/16 15:11 Rheumatoid Factor 24 IU/ml (0-13) H 09/08/16 11:48 SAHIL Screen Negative (Negative) 09/07/16 09:20 Proteinase 3 (PR3) Ab <1.0 AI (<1.0) 09/07/16 09:20 Myeloperoxidase Ab <1.0 AI (<1.0) 09/07/16 09:20 Sjogren's Antibody <1.0 AI (<1.0) 09/08/16 15:35 Scl-70 Scleroderma Ab <1.0 AI (<1.0) 09/08/16 15:35 Centromere B Antibody <1.0 AI (<1.0) 09/08/16 12:02 Heparin-induced Plt Ab Negative (Negative) 09/29/16 13:35 UF Heparin High Dose 11 % Release 09/29/16 13:35 SUDHIR UFH Low Dose 0.1 6 % Release 09/29/16 13:35 SUDHIR UFH Low Dose 0.5 8 % Release 09/29/16 13:35 Cardiolipid IgG Ab <14 GPL (<=14) 09/12/16 09:59 Cardiolipid IgA Ab <11 APL (<=11) 09/12/16 09:59 Cardiolipid IgM Ab <12 MPL (<=12) 09/12/16 09:59 Complement C3 148 mg/dL (90-180) 09/07/16 09:20 Complement C4 58 mg/dL (16-47) H 09/07/16 09:20 RPR Nonreactive (Nonreactive) 09/08/16 11:48 Hepatitis A IgM Ab Non-reactive (NonReactive) 09/24/16 14:40 Hep Bs Antigen Non-reactive (Negative) 09/24/16 14:40 Hep B Core IgM Ab Non-reactive (NonReactive) 09/24/16 14:40 Hepatitis C Antibody Non-reactive (NonReactive) 09/24/16 14:40 HIV 1&2 Antibody Rapid Non react (Non React) 09/08/16 11:48 HIV P24 Antigen Non react (Non React) 09/08/16 11:48 Miscellaneous Test Flexitest 1 H 01/09/17 18:45 Blood Type A POSITIVE 03/20/17 16:00 Antibody Screen Negative 03/20/17 16:00 DELORIS Antibody Screen Negative 11/24/16 11:20 Crossmatch See Detail 03/20/17 16:00
--- NOTE | 2017-03-26 12:01 | Progress Note ---
Assessment and Plan Assessment * Oliguric acute kidney injury secondary to ATN on CKD - baseline SCr 1.7mg/dL; likely now ESRD --Patient's serum creatinine is noted to be low - due to wasting of muscle mass. Needs to be maintained on dialysis at this time. 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 * Vascular surgery recs re: femoral vas cath noted * Abx per ID * Adjust Ca bath with dialysis * Rate control per cardiology * Transfuse pRBC per primary team. Epogen TIW prn * Vent management per pulm/CCM * Pressors prn for MAP>65 * Dose medications for renal function * Will see again on Monday Subjective Date of service: 03/26/17 Principal diagnosis: Acute resp failure on MVS; S/P Acute CVA; Acute Encephalopathy; JUANITA Interval history: 24h events reviewed Objective - Vital Signs Vital signs: Vital Signs - 12hr 03/26/17 03/26/17 03/26/17 00:00 01:06 02:01 Temperature Pulse Rate 101 H 105 H 100 H Pulse Rate [ Anterior Bilateral Throughout] Pulse Rate [ From Monitor] Respiratory 16 15 Rate Respiratory Rate [Anterior Bilateral Throughout] Blood Pressure 96/70 96/70 94/49 O2 Sat by Pulse 100 100 100 Oximetry O2 Sat by Pulse Oximetry [ Assessment] 03/26/17 03/26/17 03/26/17 02:06 03:28 04:00 Temperature 98.3 F Pulse Rate 79 101 H Pulse Rate [ Anterior Bilateral Throughout] Pulse Rate [ From Monitor] Respiratory 12 Rate Respiratory Rate [Anterior Bilateral Throughout] Blood Pressure 99/50 101/66 O2 Sat by Pulse 100 Oximetry O2 Sat by Pulse Oximetry [ Assessment] 03/26/17 03/26/17 03/26/17 06:00 06:04 07:30 Temperature Pulse Rate 105 H 99 H Pulse Rate [ Anterior Bilateral Throughout] Pulse Rate [ From Monitor] Respiratory 13 Rate Respiratory Rate [Anterior Bilateral Throughout] Blood Pressure 84/51 84/51 102/68 O2 Sat by Pulse 100 100 Oximetry O2 Sat by Pulse Oximetry [ Assessment] 03/26/17 03/26/17 03/26/17 08:00 08:01 08:50 Temperature 98.7 F Pulse Rate 110 H 104 H Pulse Rate [ Anterior Bilateral Throughout] Pulse Rate [ 110 H From Monitor] Respiratory 14 14 Rate Respiratory Rate [Anterior Bilateral Throughout] Blood Pressure 102/68 115/73 O2 Sat by Pulse 100 100 100 Oximetry O2 Sat by Pulse 101 H Oximetry [ Assessment] 03/26/17 03/26/17 08:56 09:06 Temperature Pulse Rate Pulse Rate [ 101 H 102 H Anterior Bilateral Throughout] Pulse Rate [ From Monitor] Respiratory Rate Respiratory 14 16 Rate [Anterior Bilateral Throughout] Blood Pressure O2 Sat by Pulse Oximetry O2 Sat by Pulse Oximetry [ Assessment] - General Appearance General appearance: chronically ill EENT: ATNC Neck: other (trach) Respiratory: Present: Other (coarse breath sounds) Cardiology: regular, S1S2 Gastrointestinal: hypoactive bowel sounds Integumentary: warm and dry Neurologic: other (no meaningful response to tactile/verbal stimuli) Musculoskeletal: other (Dependent edema) Psychiatric: cooperative - Lab 03/23/17 05:30 03/26/17 09:35 Most recent lab results ABG pH 7.450 pH Units (7.350-7.450) 12/05/16 Unknown ABG pCO2 29.6 mm Hg 12/05/16 Unknown ABG pO2 75.2 mm Hg (80.0-90.0) L 12/05/16 Unknown ABG HCO3 20.1 mmol/L (20.0-26.0) 12/05/16 Unknown ABG O2 Saturation 96.8 % (95.0-99.0) 12/05/16 Unknown Calcium 9.3 mg/dL (8.4-10.2) 03/26/17 09:35 Phosphorus 4.60 mg/dL (2.5-4.5) H D 03/26/17 09:35 Magnesium 2.40 mg/dL (1.7-2.3) H 03/26/17 09:35 Urine Creatinine 19.7 mg/dL (0.1-20.0) 11/12/16 10:18 Urine Sodium 36 mEq/L 09/16/16 19:19 Urine Total Protein 16 mg/dL (5-11.8) H 09/16/16 19:19
[2017-03-26] MEDS: DURAGESIC TD SCH (12:59)
[2017-03-26] MEDS ORDERED: TPN ADULT IV SCH (20:00)
[2017-03-27] MEDS: HumuLIN R SUB-Q SCH ×4 (00:23→18:21)
[2017-03-27 06:03] LABS: Basophils # (Auto) 0.1 K/mm3 (0.0-0.1); Basophils % (Auto) 1.5 % (0.0-1.8); Eosinophils # (Auto) 0.2 K/mm3 (0.0-0.4); Eosinophils % (Auto) 3.9 % (0.0-4.3); Hematocrit 28.7 % (30.3-42.9); Hemoglobin 8.9 gm/dl (10.1-14.3); Lymphocytes # (Auto) 1.4 K/mm3 (1.2-5.4); Lymphocytes % (Auto) 25.1 % (13.4-35.0); Mean Corpuscular HGB Conc 31 % (30-34); Mean Corpuscular Hemoglobin 30 pg (28-32); Mean Corpuscular Volume 97 fl (79-97); Monocytes # (Auto) 0.5 K/mm3 (0.0-0.8); Monocytes % (Auto) 8.6 % (0.0-7.3); Platelet Count 156 K/mm3 (140-440); Red Blood Count 2.95 M/mm3 (3.65-5.03); Red Cell Distribution Width 24.4 % (13.2-15.2)
[2017-03-27 06:24] LABS: Calcium 9.3 mg/dL (8.4-10.2)
--- NOTE | 2017-03-27 09:08 | Progress Note ---
Assessment and Plan - Patient Problems (1) JUANITA (acute kidney injury) Current Visit: Yes Status: Acute Plan to address problem: JUANITA with multiple medical problems-Dialysis dependent. Acute on chronic respiratory failure-ventilator dependent. Multiple comorbid conditions. S/P surgical debridement for sacral decubitus. Encephalopathy-same. Urine output remains poor. HD on M/W/F with UF as ordered. Supportive care. Consultants , Hospitalist notes reviewed. 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 Abx per ID (2) Acute CVA (cerebrovascular accident) Current Visit: Yes Status: Acute (3) Acute respiratory failure with hypoxia Current Visit: Yes Status: Acute (4) Atrial fibrillation Current Visit: Yes Status: Chronic (5) Type 2 diabetes mellitus Current Visit: Yes Status: Chronic (6) Anemia Current Visit: No Status: Chronic Qualifiers: Anemia type: unspecified type Qualified Code(s): D64.9 - Anemia, unspecified (7) HTN (hypertension) Current Visit: Yes Status: Chronic (8) Diabetes Current Visit: Yes Status: Chronic Qualifiers: Diabetes mellitus type: type 2 Diabetes mellitus complication status: with hyperglycemia Subjective Date of service: 03/27/17 Principal diagnosis: Acute resp failure on MVS; S/P Acute CVA; Acute Encephalopathy; JUANITA Interval history: on ventilator via trach. Fio2-35%. Pt remains non communicative. Objective - Vital Signs Vital signs: Vital Signs - 12hr 03/26/17 03/26/17 03/27/17 22:00 22:30 00:00 Temperature 99.3 F Pulse Rate 102 H 99 H 101 H Respiratory 17 19 Rate Blood Pressure 117/72 106/77 116/75 O2 Sat by Pulse 93 100 94 Oximetry 03/27/17 03/27/17 03/27/17 01:27 02:00 04:00 Temperature 99.0 F Pulse Rate 99 H 100 H Respiratory 14 18 Rate Blood Pressure 106/73 121/83 O2 Sat by Pulse 100 94 93 Oximetry 03/27/17 04:23 Temperature Pulse Rate 100 H Respiratory Rate Blood Pressure 107/73 O2 Sat by Pulse 100 Oximetry - General Appearance General appearance: chronically ill, intubated EENT: mucous membranes dry Neck: no JVD Respiratory: Present: Decreased Breath Sounds Cardiology: irregular Gastrointestinal: normoactive bowel sounds Neurologic: other (non communicative) - Lab 03/27/17 05:30 03/27/17 05:30 Most recent lab results ABG pH 7.450 pH Units (7.350-7.450) 12/05/16 Unknown ABG pCO2 29.6 mm Hg 12/05/16 Unknown ABG pO2 75.2 mm Hg (80.0-90.0) L 12/05/16 Unknown ABG HCO3 20.1 mmol/L (20.0-26.0) 12/05/16 Unknown ABG O2 Saturation 96.8 % (95.0-99.0) 12/05/16 Unknown Calcium 9.3 mg/dL (8.4-10.2) 03/27/17 05:30 Phosphorus 5.30 mg/dL (2.5-4.5) H 03/27/17 05:30 Magnesium 2.60 mg/dL (1.7-2.3) H 03/27/17 05:30 Urine Creatinine 19.7 mg/dL (0.1-20.0) 11/12/16 10:18 Urine Sodium 36 mEq/L 09/16/16 19:19 Urine Total Protein 16 mg/dL (5-11.8) H 09/16/16 19:19
[2017-03-27] MEDS: DUONEB *Not for PRN Use IH SCH ×3 (09:30→20:00)
[2017-03-27] MEDS: LOPRESSOR IV SCH ×3 (10:00→20:13)
[2017-03-27] MEDS: PEPCID IV SCH (11:04)
[2017-03-27] MEDS: HEPARIN SUB-Q SCH ×2 (11:04→21:32)
--- NOTE | 2017-03-27 11:15 | Progress Note ---
Assessment and Plan Patient is 46-year-old woman with a history of hypertension, diabetes mellitus, asthma, hyperlipidemia, chronic kidney disease and anxiety, who was brought in by family because she couldn't get her words out, her face was also twisted, she was admitted for acute CVA and accelerated hypertension, she had a hx of poor adherence with her medications, and uncontrolled hypertension. Patient's SBP on admission was noted be greater than 260. TPA was started but this it was discontinued after 5 minutes because her blood pressure became uncontrolled. The TPA was not initiated again because the patient was outside the TPA window. Patient has had a prolonged hospital stay complicated with recurrent severe sepsis. Patient with most recent event also status post cardiac arrest on 11/21/16 , with CPR and ROSC. Acute on chronic Hypoxemic Respiratory Failure Sepsis -recurrent Intrabdominal abscess s/p peritoneal drain per IR s/p tracheostomy Hypertension Atrial Fibrillation with RVR Acute encephalopathy s/p CVA Oropharyngeal dysphagia Enterococcal bacteremia Sacral Decubitus Ulcer- unstageable s/p debridement Anemia Obesity JUANITA now on hemodialysis prn Enteric Fistula - VAP bundle addressed - continue NGT to LIS - continue wound care/wound vac per WCT - Vasopressor if MAP falls < 65mmHg - keep on with daily PSV trials and / or T-piece as tolerated - continue TPN administration (continue TPN; NPO except for meds) - continue airway clearance and secretion management - continue to wean FiO2 for sats > 94% - continue to monitor hemodynamics closely - continue HD/UF per nephrology - continue to follow electrolytes and correct as necessary - continue GI & VTE prophylaxis Transfuse 1 unit PRBC as needed to keep HgH>7g/dL .....she remains critically ill on life sustaining interventions including MVS and at risk for further deterioration including ...nursing home prognosis remains poor ...DNR in the event of cardiac arrest - Patient Problems (1) Acute respiratory failure with hypoxia Current Visit: Yes Status: Acute (2) Acute blood loss anemia Current Visit: Yes Status: Resolved (3) Acute CVA (cerebrovascular accident) Current Visit: Yes Status: Acute (4) Chronic renal insufficiency Current Visit: Yes Status: Acute (5) Uncontrolled hypertension Current Visit: Yes Status: Acute (6) Leukocytosis (leucocytosis) Current Visit: Yes Status: Acute Qualifiers: Leukocytosis type: leukemoid reaction Qualified Code(s): D72.823 - Leukemoid reaction (7) Dislodged gastrostomy tube Current Visit: Yes Status: Acute (8) Fungemia Current Visit: Yes Status: Resolved (9) Cardiopulmonary arrest with successful resuscitation Current Visit: Yes Status: Acute Subjective Date of service: 03/27/17 Principal diagnosis: Acute resp failure on MVS; S/P Acute CVA; Acute Encephalopathy; JUANITA Interval history: Patient is seen today for: Acute resp failure on MVS; S/P Acute CVA; Acute Encephalopathy; JUANITA Seen and examined at bedside; 24hour events reviewed; nursing and respiratory care staff consulted; no adverse overnight events reported to me; she remains chronically critically ill. No fevers, has a pressure ulcer on the back of her head Objective - Exam Narrative Exam: GEN: Ill appearing, tracheostomy to ventilator, staring into space,, non purposeful movement NECK: SUPPLE, trach in place, ngt in place and to suction. CVS:Irregular Irregular with LUNGS/CHEST: NORMAL CHEST EXPANSION B, GOOD AIR ENTRY B, tachypena ABD: SOFT, no grimise on abdominal palpation, Ostomy bags at two side by side fistula site. GBS, NO REBOUND OR GUARDING, peg tube in place EXT/SKIN: NO SIGNIFICANT EDEMA BUT WITH UNSTAGEABLE SACRAL DECUB, wound vac inplace MSK: +spontaneous non purposeful movement NEURO: on a ventilator and unresponsive despite being off sedation PSY: Comatose, Vital Signs - 12hr 03/27/17 03/27/17 03/27/17 00:00 01:27 02:00 Temperature 99.3 F Pulse Rate 101 H 99 H 100 H Pulse Rate [ Anterior Bilateral Throughout] Respiratory 19 14 Rate Respiratory Rate [Anterior Bilateral Throughout] Blood Pressure 116/75 106/73 121/83 O2 Sat by Pulse 94 100 94 Oximetry O2 Sat by Pulse Oximetry [ Assessment] 03/27/17 03/27/17 03/27/17 04:00 04:23 06:00 Temperature 99.0 F Pulse Rate 89 100 H 84 Pulse Rate [ Anterior Bilateral Throughout] Respiratory 12 13 Rate Respiratory Rate [Anterior Bilateral Throughout] Blood Pressure 121/83 107/73 99/65 O2 Sat by Pulse 97 100 99 Oximetry O2 Sat by Pulse Oximetry [ Assessment] 03/27/17 03/27/17 03/27/17 08:00 09:26 09:46 Temperature 98.3 F Pulse Rate 87 81 79 Pulse Rate [ 81 82 Anterior Bilateral Throughout] Respiratory 21 18 Rate Respiratory 22 32 H Rate [Anterior Bilateral Throughout] Blood Pressure 113/67 116/80 116/80 O2 Sat by Pulse 98 100 100 Oximetry O2 Sat by Pulse 100 Oximetry [ Assessment] 03/27/17 10:00 Temperature Pulse Rate 84 Pulse Rate [ Anterior Bilateral Throughout] Respiratory 19 Rate Respiratory Rate [Anterior Bilateral Throughout] Blood Pressure 116/67 O2 Sat by Pulse 100 Oximetry O2 Sat by Pulse Oximetry [ Assessment] Constitutional: no acute distress, appears uncomfortable, other (not tracking) Eyes: non-icteric, other (tracheostomy tube in midline of neck) ENT: oropharynx moist, oropharyngeal exudate pre, other (midline tracheostomy tube) Neck: supple, no lymphadenopathy, no JVD, other (no thyromegaly) Effort: mildly labored Ascultation: Bilateral: clear, diminished breath sounds (bases R>L), rales, rhonchi (and referred upper airway sounds) Percussion: Right: dull (base), Bilateral: not dull Cardiovascular: regular rate and rhythm, other (no rubs / murmurs, on amiodarone infusion) Gastrointestinal: hypoactive bowel sounds, soft, non-tender, non-distended, other (RLQ & LUQ stomas with colostomy bags, Intraperitoneal drain) Integumentary: decubitus ulcer (sacral; stage 4 s/p surgical debridement), other (no rash; no cellulitis; poor turgor) Extremities: no cyanosis, pulses normal, no ischemia or petechiae, edema (1+ bilaterally) Neurologic: pupils equal and round, unable to assess, other (encephalopathic) Psychiatric: other (unable to assess) CBC and BMP: 03/27/17 05:30 03/27/17 05:30 ABG, PT/INR, D-dimer: ABG POC ABG pH 7.518 (7.35-7.45) H 03/03/17 20:17 ABG pH 7.450 pH Units (7.350-7.450) 12/05/16 Unknown POC ABG pCO2 28.8 (35-45) L 03/03/17 20:17 ABG pCO2 29.6 mm Hg 12/05/16 Unknown POC ABG pO2 61 (80-105) L 03/03/17 20:17 ABG pO2 75.2 mm Hg (80.0-90.0) L 12/05/16 Unknown POC ABG HCO3 23.4 03/03/17 20:17 POC ABG Total CO2 24 03/03/17 20:17 POC ABG O2 Sat 94 03/03/17 20:17 ABG O2 Saturation 96.8 % (95.0-99.0) 12/05/16 Unknown PT/INR, D-dimer PT 15.4 Sec. (12.2-14.9) H 01/13/17 15:50 INR 1.16 (0.87-1.13) H 01/13/17 15:50 Abnormal lab findings: Abnormal Labs 09/03/16 09/03/16 09/03/16 00:03 00:10 00:10 WBC 13.9 H RBC 5.95 H Hgb Hct 44.0 H MCV 74 L MCH 22 L MCHC RDW 17.5 H Plt Count Lymph % (Auto) [place] % (Auto) Lymph # [place] # Baso # Seg Neutrophils % Seg Neuts % (Manual) Lymphocytes % (Manual) 54.0 H Monocytes % (Manual) Eosinophils % (Manual) Basophils % (Manual) Nucleated RBC % Seg Neutrophils # Seg Neutrophils # Man Lymphocytes # (Manual) 7.5 H Monocytes # (Manual) Eosinophils # (Manual) Basophils # (Manual) PT INR Fibrinogen dRVVT Confirm Interp Factor V Activity POC ABG pH POC ABG pCO2 POC ABG pO2 ABG pO2 ABG HCO3 ABG Base Excess ABG Hemoglobin Oxyhemoglobin Sodium Potassium 2.8 L* Chloride Carbon Dioxide 21 L BUN Creatinine 1.7 H Glucose 159 H POC Glucose 177 H Lactic Acid Calcium Ionized Calcium Phosphorus Magnesium Direct Bilirubin AST ALT Alkaline Phosphatase Lactate Dehydrogenase Troponin T C-Reactive Protein Total Protein Albumin Prealbumin Triglycerides Cholesterol LDL Cholesterol Direct HDL Cholesterol 25-OH Vitamin D Total PTH Intact Urine pH Urine WBC (Auto) Urine Creatinine Urine Total Protein Fluid Total Protein Vancomycin Trough Rheumatoid Factor Complement C4 Miscellaneous Test Crossmatch 09/03/16 09/03/16 09/03/16 12:12 15:07 16:20 WBC RBC Hgb Hct MCV MCH MCHC RDW Plt Count Lymph % (Auto) [place] % (Auto) Lymph # [place] # Baso # Seg Neutrophils % Seg Neuts % (Manual) Lymphocytes % (Manual) Monocytes % (Manual) Eosinophils % (Manual) Basophils % (Manual) Nucleated RBC % Seg Neutrophils # Seg Neutrophils # Man Lymphocytes # (Manual) Monocytes # (Manual) Eosinophils # (Manual) Basophils # (Manual) PT INR Fibrinogen dRVVT Confirm Interp Factor V Activity POC ABG pH 7.452 H POC ABG pCO2 POC ABG pO2 ABG pO2 ABG HCO3 ABG Base Excess ABG Hemoglobin Oxyhemoglobin Sodium Potassium Chloride Carbon Dioxide BUN Creatinine Glucose POC Glucose 178 H Lactic Acid Calcium Ionized Calcium Phosphorus 2.20 L Magnesium 1.60 L Direct Bilirubin AST ALT Alkaline Phosphatase Lactate Dehydrogenase Troponin T C-Reactive Protein Total Protein Albumin Prealbumin Triglycerides Cholesterol LDL Cholesterol Direct HDL Cholesterol 25-OH Vitamin D Total PTH Intact Urine pH Urine WBC (Auto) Urine Creatinine Urine Total Protein Fluid Total Protein Vancomycin Trough Rheumatoid Factor Complement C4 Miscellaneous Test Crossmatch 09/03/16 09/03/16 09/03/16 17:57 17:58 23:50 WBC RBC Hgb Hct MCV MCH MCHC RDW Plt Count Lymph % (Auto) [place] % (Auto) Lymph # [place] # Baso # Seg Neutrophils % Seg Neuts % (Manual) Lymphocytes % (Manual) Monocytes % (Manual) Eosinophils % (Manual) Basophils % (Manual) Nucleated RBC % Seg Neutrophils # Seg Neutrophils # Man Lymphocytes # (Manual) Monocytes # (Manual) Eosinophils # (Manual) Basophils # (Manual) PT INR Fibrinogen dRVVT Confirm Interp Factor V Activity POC ABG pH POC ABG pCO2 POC ABG pO2 ABG pO2 ABG HCO3 ABG Base Excess ABG Hemoglobin Oxyhemoglobin Sodium Potassium Chloride Carbon Dioxide BUN Creatinine Glucose POC Glucose 162 H 145 H Lactic Acid Calcium Ionized Calcium Phosphorus 2.30 L Magnesium Direct Bilirubin AST ALT Alkaline Phosphatase Lactate Dehydrogenase Troponin T C-Reactive Protein Total Protein Albumin Prealbumin Triglycerides Cholesterol LDL Cholesterol Direct HDL Cholesterol 25-OH Vitamin D Total PTH Intact Urine pH Urine WBC (Auto) Urine Creatinine Urine Total Protein Fluid Total Protein Vancomycin Trough Rheumatoid Factor Complement C4 Miscellaneous Test Crossmatch 09/04/16 09/04/16 09/04/16 03:31 03:31 05:42 WBC RBC Hgb 9.7 L D Hct MCV 72 L MCH 23 L MCHC RDW 17.5 H Plt Count Lymph % (Auto) 11.1 L [place] % (Auto) Lymph # [place] # Baso # Seg Neutrophils % 84.3 H Seg Neuts % (Manual) Lymphocytes % (Manual) Monocytes % (Manual) Eosinophils % (Manual) Basophils % (Manual) Nucleated RBC % Seg Neutrophils # 8.9 H Seg Neutrophils # Man Lymphocytes # (Manual) Monocytes # (Manual) Eosinophils # (Manual) Basophils # (Manual) PT INR Fibrinogen dRVVT Confirm Interp Factor V Activity POC ABG pH POC ABG pCO2 POC ABG pO2 ABG pO2 ABG HCO3 ABG Base Excess ABG Hemoglobin Oxyhemoglobin Sodium 135 L Potassium 2.9 L* Chloride 97.2 L Carbon Dioxide 19 L BUN Creatinine 1.7 H Glucose 170 H POC Glucose 152 H Lactic Acid Calcium Ionized Calcium Phosphorus Magnesium Direct Bilirubin AST ALT Alkaline Phosphatase Lactate Dehydrogenase Troponin T C-Reactive Protein Total Protein Albumin Prealbumin Triglycerides 160 H Cholesterol LDL Cholesterol Direct HDL Cholesterol 31 L 25-OH Vitamin D Total PTH Intact Urine pH Urine WBC (Auto) Urine Creatinine Urine Total Protein Fluid Total Protein Vancomycin Trough Rheumatoid Factor Complement C4 Miscellaneous Test Crossmatch 09/04/16 09/04/16 09/04/16 11:34 17:46 23:29 WBC RBC Hgb Hct MCV MCH MCHC RDW Plt Count Lymph % (Auto) [place] % (Auto) Lymph # [place] # Baso # Seg Neutrophils % Seg Neuts % (Manual) Lymphocytes % (Manual) Monocytes % (Manual) Eosinophils % (Manual) Basophils % (Manual) Nucleated RBC % Seg Neutrophils # Seg Neutrophils # Man Lymphocytes # (Manual) Monocytes # (Manual) Eosinophils # (Manual) Basophils # (Manual) PT INR Fibrinogen dRVVT Confirm Interp Factor V Activity POC ABG pH POC ABG pCO2 POC ABG pO2 ABG pO2 ABG HCO3 ABG Base Excess ABG Hemoglobin Oxyhemoglobin Sodium Potassium Chloride Carbon Dioxide BUN Creatinine Glucose POC Glucose 165 H 210 H 139 H Lactic Acid Calcium Ionized Calcium Phosphorus Magnesium Direct Bilirubin AST ALT Alkaline Phosphatase Lactate Dehydrogenase Troponin T C-Reactive Protein Total Protein Albumin Prealbumin Triglycerides Cholesterol LDL Cholesterol Direct HDL Cholesterol 25-OH Vitamin D Total PTH Intact Urine pH Urine WBC (Auto) Urine Creatinine Urine Total Protein Fluid Total Protein Vancomycin Trough Rheumatoid Factor Complement C4 Miscellaneous Test Crossmatch 09/05/16 09/05/16 09/05/16 04:05 04:05 05:38 WBC RBC Hgb Hct MCV 76 L D MCH 23 L MCHC RDW 17.8 H Plt Count Lymph % (Auto) [place] % (Auto) Lymph # [place] # Baso # Seg Neutrophils % Seg Neuts % (Manual) Lymphocytes % (Manual) Monocytes % (Manual) Eosinophils % (Manual) Basophils % (Manual) Nucleated RBC % Seg Neutrophils # Seg Neutrophils # Man Lymphocytes # (Manual) Monocytes # (Manual) Eosinophils # (Manual) Basophils # (Manual) PT INR Fibrinogen dRVVT Confirm Interp Factor V Activity POC ABG pH POC ABG pCO2 POC ABG pO2 ABG pO2 ABG HCO3 ABG Base Excess ABG Hemoglobin Oxyhemoglobin Sodium 134 L Potassium Chloride Carbon Dioxide 18 L BUN Creatinine 1.8 H Glucose 192 H POC Glucose 175 H Lactic Acid Calcium Ionized Calcium Phosphorus Magnesium Direct Bilirubin AST ALT Alkaline Phosphatase Lactate Dehydrogenase Troponin T C-Reactive Protein Total Protein Albumin Prealbumin Triglycerides Cholesterol LDL Cholesterol Direct HDL Cholesterol 25-OH Vitamin D Total PTH Intact Urine pH Urine WBC (Auto) Urine Creatinine Urine Total Protein Fluid Total Protein Vancomycin Trough Rheumatoid Factor Complement C4 Miscellaneous Test Crossmatch 09/05/16 09/05/16 09/05/16 11:38 17:48 23:22 WBC RBC Hgb Hct MCV MCH MCHC RDW Plt Count Lymph % (Auto) [place] % (Auto) Lymph # [place] # Baso # Seg Neutrophils % Seg Neuts % (Manual) Lymphocytes % (Manual) Monocytes % (Manual) Eosinophils % (Manual) Basophils % (Manual) Nucleated RBC % Seg Neutrophils # Seg Neutrophils # Man Lymphocytes # (Manual) Monocytes # (Manual) Eosinophils # (Manual) Basophils # (Manual) PT INR Fibrinogen dRVVT Confirm Interp Factor V Activity POC ABG pH POC ABG pCO2 POC ABG pO2 ABG pO2 ABG HCO3 ABG Base Excess ABG Hemoglobin Oxyhemoglobin Sodium Potassium Chloride Carbon Dioxide BUN Creatinine Glucose POC Glucose 164 H 186 H 195 H Lactic Acid Calcium Ionized Calcium Phosphorus Magnesium Direct Bilirubin AST ALT Alkaline Phosphatase Lactate Dehydrogenase Troponin T C-Reactive Protein Total Protein Albumin Prealbumin Triglycerides Cholesterol LDL Cholesterol Direct HDL Cholesterol 25-OH Vitamin D Total PTH Intact Urine pH Urine WBC (Auto) Urine Creatinine Urine Total Protein Fluid Total Protein Vancomycin Trough Rheumatoid Factor Complement C4 Miscellaneous Test Crossmatch 09/06/16 09/06/16 09/06/16 04:12 05:59 07:32 WBC RBC Hgb Hct MCV MCH MCHC RDW Plt Count Lymph % (Auto) [place] % (Auto) Lymph # [place] # Baso # Seg Neutrophils % Seg Neuts % (Manual) Lymphocytes % (Manual) Monocytes % (Manual) Eosinophils % (Manual) Basophils % (Manual) Nucleated RBC % Seg Neutrophils # Seg Neutrophils # Man Lymphocytes # (Manual) Monocytes # (Manual) Eosinophils # (Manual) Basophils # (Manual) PT INR Fibrinogen dRVVT Confirm Interp Factor V Activity POC ABG pH 7.514 H POC ABG pCO2 29.1 L POC ABG pO2 72 L ABG pO2 ABG HCO3 ABG Base Excess ABG Hemoglobin Oxyhemoglobin Sodium 133 L Potassium 3.4 L Chloride 94.9 L Carbon Dioxide 19 L BUN 30 H Creatinine 2.1 H Glucose 139 H POC Glucose 146 H Lactic Acid Calcium Ionized Calcium Phosphorus Magnesium Direct Bilirubin AST ALT Alkaline Phosphatase Lactate Dehydrogenase Troponin T C-Reactive Protein Total Protein Albumin Prealbumin Triglycerides Cholesterol LDL Cholesterol Direct HDL Cholesterol 25-OH Vitamin D Total PTH Intact Urine pH Urine WBC (Auto) Urine Creatinine Urine Total Protein Fluid Total Protein Vancomycin Trough Rheumatoid Factor Complement C4 Miscellaneous Test Crossmatch 09/06/16 09/06/16 09/06/16 11:57 17:58 19:02 WBC RBC Hgb Hct MCV MCH MCHC RDW Plt Count Lymph % (Auto) [place] % (Auto) Lymph # [place] # Baso # Seg Neutrophils % Seg Neuts % (Manual) Lymphocytes % (Manual) Monocytes % (Manual) Eosinophils % (Manual) Basophils % (Manual) Nucleated RBC % Seg Neutrophils # Seg Neutrophils # Man Lymphocytes # (Manual) Monocytes # (Manual) Eosinophils # (Manual) Basophils # (Manual) PT INR Fibrinogen dRVVT Confirm Interp Factor V Activity POC ABG pH 7.465 H POC ABG pCO2 32.0 L POC ABG pO2 ABG pO2 ABG HCO3 ABG Base Excess ABG Hemoglobin Oxyhemoglobin Sodium Potassium Chloride Carbon Dioxide BUN Creatinine Glucose POC Glucose 165 H 160 H Lactic Acid Calcium Ionized Calcium Phosphorus Magnesium Direct Bilirubin AST ALT Alkaline Phosphatase Lactate Dehydrogenase Troponin T C-Reactive Protein Total Protein Albumin Prealbumin Triglycerides Cholesterol LDL Cholesterol Direct HDL Cholesterol 25-OH Vitamin D Total PTH Intact Urine pH Urine WBC (Auto) Urine Creatinine Urine Total Protein Fluid Total Protein Vancomycin Trough Rheumatoid Factor Complement C4 Miscellaneous Test Crossmatch 09/06/16 09/07/16 09/07/16 23:45 02:47 02:47 WBC RBC Hgb Hct MCV MCH MCHC RDW Plt Count Lymph % (Auto) [place] % (Auto) Lymph # [place] # Baso # Seg Neutrophils % Seg Neuts % (Manual) Lymphocytes % (Manual) Monocytes % (Manual) Eosinophils % (Manual) Basophils % (Manual) Nucleated RBC % Seg Neutrophils # Seg Neutrophils # Man Lymphocytes # (Manual) Monocytes # (Manual) Eosinophils # (Manual) Basophils # (Manual) PT INR Fibrinogen dRVVT Confirm Interp Factor V Activity POC ABG pH POC ABG pCO2 POC ABG pO2 ABG pO2 ABG HCO3 ABG Base Excess ABG Hemoglobin Oxyhemoglobin Sodium Potassium Chloride Carbon Dioxide BUN Creatinine Glucose POC Glucose 204 H Lactic Acid Calcium Ionized Calcium Phosphorus Magnesium Direct Bilirubin AST ALT Alkaline Phosphatase Lactate Dehydrogenase Troponin T C-Reactive Protein Total Protein Albumin Prealbumin Triglycerides Cholesterol LDL Cholesterol Direct HDL Cholesterol 25-OH Vitamin D Total PTH Intact Urine pH Urine WBC (Auto) 68.0 H Urine Creatinine 106.1 H Urine Total Protein Fluid Total Protein Vancomycin Trough Rheumatoid Factor Complement C4 Miscellaneous Test Crossmatch 09/07/16 09/07/16 09/07/16 04:50 06:19 06:39 WBC RBC Hgb Hct MCV MCH MCHC RDW Plt Count Lymph % (Auto) [place] % (Auto) Lymph # [place] # Baso # Seg Neutrophils % Seg Neuts % (Manual) Lymphocytes % (Manual) Monocytes % (Manual) Eosinophils % (Manual) Basophils % (Manual) Nucleated RBC % Seg Neutrophils # Seg Neutrophils # Man Lymphocytes # (Manual) Monocytes # (Manual) Eosinophils # (Manual) Basophils # (Manual) PT INR Fibrinogen dRVVT Confirm Interp Factor V Activity POC ABG pH 7.457 H POC ABG pCO2 32.1 L POC ABG pO2 76 L ABG pO2 ABG HCO3 ABG Base Excess ABG Hemoglobin Oxyhemoglobin Sodium 132 L Potassium Chloride 94.7 L Carbon Dioxide BUN 53 H Creatinine 2.9 H Glucose 151 H POC Glucose 149 H Lactic Acid Calcium Ionized Calcium Phosphorus Magnesium Direct Bilirubin AST ALT Alkaline Phosphatase Lactate Dehydrogenase Troponin T C-Reactive Protein Total Protein Albumin Prealbumin Triglycerides Cholesterol LDL Cholesterol Direct HDL Cholesterol 25-OH Vitamin D Total PTH Intact Urine pH Urine WBC (Auto) Urine Creatinine Urine Total Protein Fluid Total Protein Vancomycin Trough Rheumatoid Factor Complement C4 Miscellaneous Test Crossmatch 09/07/16 09/07/16 09/07/16 09:20 11:43 11:43 WBC 19.4 H RBC Hgb 8.3 L Hct 26.4 L D MCV 72 L D MCH 22 L MCHC RDW 17.9 H Plt Count Lymph % (Auto) 8.5 L [place] % (Auto) Lymph # [place] # 1.0 H Baso # Seg Neutrophils % 85.8 H Seg Neuts % (Manual) Lymphocytes % (Manual) Monocytes % (Manual) Eosinophils % (Manual) Basophils % (Manual) Nucleated RBC % Seg Neutrophils # 16.6 H Seg Neutrophils # Man Lymphocytes # (Manual) Monocytes # (Manual) Eosinophils # (Manual) Basophils # (Manual) PT INR Fibrinogen dRVVT Confirm Interp Factor V Activity POC ABG pH POC ABG pCO2 POC ABG pO2 ABG pO2 ABG HCO3 ABG Base Excess ABG Hemoglobin Oxyhemoglobin Sodium 134 L Potassium Chloride 97.2 L Carbon Dioxide 20 L BUN 58 H Creatinine 2.9 H Glucose 147 H POC Glucose Lactic Acid Calcium Ionized Calcium Phosphorus 2.40 L Magnesium 2.40 H Direct Bilirubin AST ALT Alkaline Phosphatase Lactate Dehydrogenase Troponin T C-Reactive Protein Total Protein 5.8 L Albumin 2.2 L Prealbumin Triglycerides Cholesterol LDL Cholesterol Direct HDL Cholesterol 25-OH Vitamin D Total PTH Intact Urine pH Urine WBC (Auto) Urine Creatinine Urine Total Protein Fluid Total Protein Vancomycin Trough Rheumatoid Factor Complement C4 58 H Miscellaneous Test Crossmatch 09/07/16 09/07/16 09/07/16 11:50 16:00 17:31 WBC RBC Hgb Hct MCV MCH MCHC RDW Plt Count Lymph % (Auto) [place] % (Auto) Lymph # [place] # Baso # Seg Neutrophils % Seg Neuts % (Manual) Lymphocytes % (Manual) Monocytes % (Manual) Eosinophils % (Manual) Basophils % (Manual) Nucleated RBC % Seg Neutrophils # Seg Neutrophils # Man Lymphocytes # (Manual) Monocytes # (Manual) Eosinophils # (Manual) Basophils # (Manual) PT INR Fibrinogen dRVVT Confirm Interp Factor V Activity POC ABG pH POC ABG pCO2 POC ABG pO2 158 H ABG pO2 ABG HCO3 ABG Base Excess ABG Hemoglobin Oxyhemoglobin Sodium Potassium Chloride Carbon Dioxide BUN Creatinine Glucose POC Glucose 175 H Lactic Acid Calcium Ionized Calcium Phosphorus Magnesium Direct Bilirubin AST ALT Alkaline Phosphatase Lactate Dehydrogenase Troponin T C-Reactive Protein Total Protein Albumin Prealbumin Triglycerides Cholesterol LDL Cholesterol Direct HDL Cholesterol 25-OH Vitamin D Total PTH Intact Urine pH Urine WBC (Auto) Urine Creatinine 66.3 H Urine Total Protein Fluid Total Protein Vancomycin Trough Rheumatoid Factor Complement C4 Miscellaneous Test Crossmatch [id number] 09/08/16 23:50 05:46 06:18 WBC 17.8 H RBC 3.58 L Hgb 8.1 L Hct 25.5 L MCV 71 L MCH 23 L MCHC RDW 18.4 H Plt Count Lymph % (Auto) [place] % (Auto) Lymph # [place] # Baso # Seg Neutrophils % Seg Neuts % (Manual) 92.0 H Lymphocytes % (Manual) 6.0 L Monocytes % (Manual) Eosinophils % (Manual) Basophils % (Manual) Nucleated RBC % Seg Neutrophils # Seg Neutrophils # Man 16.4 H Lymphocytes # (Manual) 1.1 L Monocytes # (Manual) Eosinophils # (Manual) Basophils # (Manual) PT INR Fibrinogen dRVVT Confirm Interp Factor V Activity POC ABG pH POC ABG pCO2 34.3 L POC ABG pO2 71 L ABG pO2 ABG HCO3 ABG Base Excess ABG Hemoglobin Oxyhemoglobin Sodium Potassium Chloride Carbon Dioxide BUN Creatinine Glucose POC Glucose 216 H Lactic Acid Calcium Ionized Calcium Phosphorus Magnesium Direct Bilirubin AST ALT Alkaline Phosphatase Lactate Dehydrogenase Troponin T C-Reactive Protein Total Protein Albumin Prealbumin Triglycerides Cholesterol LDL Cholesterol Direct HDL Cholesterol 25-OH Vitamin D Total PTH Intact Urine pH Urine WBC (Auto) Urine Creatinine Urine Total Protein Fluid Total Protein Vancomycin Trough Rheumatoid Factor Complement C4 Miscellaneous Test Crossmatch 09/08/16 09/08/16 09/08/16 06:18 06:51 10:55 WBC RBC Hgb Hct MCV MCH MCHC RDW Plt Count Lymph % (Auto) [place] % (Auto) Lymph # [place] # Baso # Seg Neutrophils % Seg Neuts % (Manual) Lymphocytes % (Manual) Monocytes % (Manual) Eosinophils % (Manual) Basophils % (Manual) Nucleated RBC % Seg Neutrophils # Seg Neutrophils # Man Lymphocytes # (Manual) Monocytes # (Manual) Eosinophils # (Manual) Basophils # (Manual) PT INR Fibrinogen dRVVT Confirm Interp Factor V Activity POC ABG pH POC ABG pCO2 POC ABG pO2 ABG pO2 ABG HCO3 ABG Base Excess ABG Hemoglobin Oxyhemoglobin Sodium 133 L Potassium Chloride 96.9 L Carbon Dioxide 20 L BUN 63 H Creatinine 2.7 H Glucose 195 H POC Glucose 204 H 169 H Lactic Acid Calcium Ionized Calcium Phosphorus Magnesium Direct Bilirubin AST ALT Alkaline Phosphatase Lactate Dehydrogenase Troponin T C-Reactive Protein Total Protein Albumin Prealbumin Triglycerides Cholesterol LDL Cholesterol Direct HDL Cholesterol 25-OH Vitamin D Total PTH Intact Urine pH Urine WBC (Auto) Urine Creatinine Urine Total Protein Fluid Total Protein Vancomycin Trough Rheumatoid Factor Complement C4 Miscellaneous Test Crossmatch 09/08/16 09/08/16 09/08/16 11:48 11:48 11:48 WBC RBC Hgb Hct MCV MCH MCHC RDW Plt Count Lymph % (Auto) [place] % (Auto) Lymph # [place] # Baso # Seg Neutrophils % Seg Neuts % (Manual) Lymphocytes % (Manual) Monocytes % (Manual) Eosinophils % (Manual) Basophils % (Manual) Nucleated RBC % Seg Neutrophils # Seg Neutrophils # Man Lymphocytes # (Manual) Monocytes # (Manual) Eosinophils # (Manual) Basophils # (Manual) PT INR Fibrinogen 750 H dRVVT Confirm Interp Factor V Activity POC ABG pH POC ABG pCO2 POC ABG pO2 ABG pO2 ABG HCO3 ABG Base Excess ABG Hemoglobin Oxyhemoglobin Sodium Potassium Chloride Carbon Dioxide BUN Creatinine Glucose POC Glucose Lactic Acid Calcium Ionized Calcium Phosphorus Magnesium Direct Bilirubin AST ALT Alkaline Phosphatase Lactate Dehydrogenase Troponin T C-Reactive Protein 15.70 H Total Protein Albumin Prealbumin Triglycerides Cholesterol LDL Cholesterol Direct HDL Cholesterol 25-OH Vitamin D Total PTH Intact Urine pH Urine WBC (Auto) Urine Creatinine Urine Total Protein Fluid Total Protein Vancomycin Trough Rheumatoid Factor 24 H Complement C4 Miscellaneous Test Crossmatch 09/08/16 09/08/16 09/09/16 15:35 18:25 00:24 WBC RBC Hgb Hct MCV MCH MCHC RDW Plt Count Lymph % (Auto) [place] % (Auto) Lymph # [place] # Baso # Seg Neutrophils % Seg Neuts % (Manual) Lymphocytes % (Manual) Monocytes % (Manual) Eosinophils % (Manual) Basophils % (Manual) Nucleated RBC % Seg Neutrophils # Seg Neutrophils # Man Lymphocytes # (Manual) Monocytes # (Manual) Eosinophils # (Manual) Basophils # (Manual) PT INR Fibrinogen dRVVT Confirm Interp Factor V Activity 182 H POC ABG pH POC ABG pCO2 POC ABG pO2 ABG pO2 ABG HCO3 ABG Base Excess ABG Hemoglobin Oxyhemoglobin Sodium Potassium Chloride Carbon Dioxide BUN Creatinine Glucose POC Glucose 184 H 216 H Lactic Acid Calcium Ionized Calcium Phosphorus Magnesium Direct Bilirubin AST ALT Alkaline Phosphatase Lactate Dehydrogenase Troponin T C-Reactive Protein Total Protein Albumin Prealbumin Triglycerides Cholesterol LDL Cholesterol Direct HDL Cholesterol 25-OH Vitamin D Total PTH Intact Urine pH Urine WBC (Auto) Urine Creatinine Urine Total Protein Fluid Total Protein Vancomycin Trough Rheumatoid Factor Complement C4 Miscellaneous Test Crossmatch 09/09/16 09/09/16 09/09/16 03:00 03:00 04:04 WBC 27.9 H RBC Hgb 8.7 L Hct 28.1 L MCV 72 L MCH 22 L MCHC RDW 18.4 H Plt Count 485 H Lymph % (Auto) [place] % (Auto) Lymph # [place] # Baso # Seg Neutrophils % Seg Neuts % (Manual) 77.0 H Lymphocytes % (Manual) 9.0 L Monocytes % (Manual) Eosinophils % (Manual) Basophils % (Manual) Nucleated RBC % Seg Neutrophils # Seg Neutrophils # Man 21.5 H Lymphocytes # (Manual) Monocytes # (Manual) 2.0 H Eosinophils # (Manual) Basophils # (Manual) PT INR Fibrinogen dRVVT Confirm Interp Factor V Activity POC ABG pH POC ABG pCO2 POC ABG pO2 121 H ABG pO2 ABG HCO3 ABG Base Excess ABG Hemoglobin Oxyhemoglobin Sodium 135 L Potassium Chloride 96.3 L Carbon Dioxide 21 L BUN 83 H Creatinine 3.0 H Glucose 135 H POC Glucose Lactic Acid Calcium Ionized Calcium Phosphorus Magnesium Direct Bilirubin AST ALT Alkaline Phosphatase Lactate Dehydrogenase Troponin T C-Reactive Protein Total Protein Albumin Prealbumin Triglycerides Cholesterol LDL Cholesterol Direct HDL Cholesterol 25-OH Vitamin D Total PTH Intact Urine pH Urine WBC (Auto) Urine Creatinine Urine Total Protein Fluid Total Protein Vancomycin Trough Rheumatoid Factor Complement C4 Miscellaneous Test Crossmatch 09/09/16 09/09/16 09/09/16 05:41 11:55 14:13 WBC RBC Hgb Hct MCV MCH MCHC RDW Plt Count Lymph % (Auto) [place] % (Auto) Lymph # [place] # Baso # Seg Neutrophils % Seg Neuts % (Manual) Lymphocytes % (Manual) Monocytes % (Manual) Eosinophils % (Manual) Basophils % (Manual) Nucleated RBC % Seg Neutrophils # Seg Neutrophils # Man Lymphocytes # (Manual) Monocytes # (Manual) Eosinophils # (Manual) Basophils # (Manual) PT INR Fibrinogen dRVVT Confirm Interp Factor V Activity POC ABG pH POC ABG pCO2 POC ABG pO2 ABG pO2 ABG HCO3 ABG Base Excess ABG Hemoglobin Oxyhemoglobin Sodium Potassium Chloride Carbon Dioxide BUN Creatinine Glucose POC Glucose 155 H 186 H Lactic Acid Calcium Ionized Calcium Phosphorus Magnesium Direct Bilirubin AST ALT Alkaline Phosphatase Lactate Dehydrogenase Troponin T C-Reactive Protein Total Protein Albumin Prealbumin Triglycerides Cholesterol LDL Cholesterol Direct HDL Cholesterol 25-OH Vitamin D Total PTH Intact Urine pH Urine WBC (Auto) 25.0 H Urine Creatinine Urine Total Protein Fluid Total Protein Vancomycin Trough Rheumatoid Factor Complement C4 Miscellaneous Test Crossmatch 09/09/16 09/09/16 09/10/16 17:33 23:13 05:09 WBC RBC Hgb Hct MCV MCH MCHC RDW Plt Count Lymph % (Auto) [place] % (Auto) Lymph # [place] # Baso # Seg Neutrophils % Seg Neuts % (Manual) Lymphocytes % (Manual) Monocytes % (Manual) Eosinophils % (Manual) Basophils % (Manual) Nucleated RBC % Seg Neutrophils # Seg Neutrophils # Man Lymphocytes # (Manual) Monocytes # (Manual) Eosinophils # (Manual) Basophils # (Manual) PT INR Fibrinogen dRVVT Confirm Interp Factor V Activity POC ABG pH POC ABG pCO2 POC ABG pO2 74 L ABG pO2 ABG HCO3 ABG Base Excess ABG Hemoglobin Oxyhemoglobin Sodium Potassium Chloride Carbon Dioxide BUN Creatinine Glucose POC Glucose 211 H 215 H Lactic Acid Calcium Ionized Calcium Phosphorus Magnesium Direct Bilirubin AST ALT Alkaline Phosphatase Lactate Dehydrogenase Troponin T C-Reactive Protein Total Protein Albumin Prealbumin Triglycerides Cholesterol LDL Cholesterol Direct HDL Cholesterol 25-OH Vitamin D Total PTH Intact Urine pH Urine WBC (Auto) Urine Creatinine Urine Total Protein Fluid Total Protein Vancomycin Trough Rheumatoid Factor Complement C4 Miscellaneous Test Crossmatch 09/10/16 09/10/16 09/10/16 05:17 05:17 11:31 WBC 15.8 H RBC 3.25 L Hgb 7.3 L Hct 22.9 L MCV 71 L MCH 23 L MCHC RDW 18.4 H Plt Count Lymph % (Auto) [place] % (Auto) Lymph # [place] # Baso # Seg Neutrophils % Seg Neuts % (Manual) 91.0 H Lymphocytes % (Manual) 4.0 L Monocytes % (Manual) Eosinophils % (Manual) Basophils % (Manual) Nucleated RBC % Seg Neutrophils # Seg Neutrophils # Man 14.4 H Lymphocytes # (Manual) 0.6 L Monocytes # (Manual) Eosinophils # (Manual) Basophils # (Manual) PT INR Fibrinogen dRVVT Confirm Interp Factor V Activity POC ABG pH POC ABG pCO2 POC ABG pO2 ABG pO2 ABG HCO3 ABG Base Excess ABG Hemoglobin Oxyhemoglobin Sodium Potassium Chloride Carbon Dioxide 21 L BUN 93 H Creatinine 2.9 H Glucose 146 H POC Glucose 188 H Lactic Acid Calcium 8.1 L Ionized Calcium Phosphorus Magnesium Direct Bilirubin AST ALT Alkaline Phosphatase Lactate Dehydrogenase Troponin T C-Reactive Protein Total Protein Albumin Prealbumin Triglycerides Cholesterol LDL Cholesterol Direct HDL Cholesterol 25-OH Vitamin D Total PTH Intact Urine pH Urine WBC (Auto) Urine Creatinine Urine Total Protein Fluid Total Protein Vancomycin Trough Rheumatoid Factor Complement C4 Miscellaneous Test Crossmatch 09/10/16 09/10/16 09/10/16 13:17 17:20 23:32 WBC RBC Hgb Hct MCV MCH MCHC RDW Plt Count Lymph % (Auto) [place] % (Auto) Lymph # [place] # Baso # Seg Neutrophils % Seg Neuts % (Manual) Lymphocytes % (Manual) Monocytes % (Manual) Eosinophils % (Manual) Basophils % (Manual) Nucleated RBC % Seg Neutrophils # Seg Neutrophils # Man Lymphocytes # (Manual) Monocytes # (Manual) Eosinophils # (Manual) Basophils # (Manual) PT INR Fibrinogen dRVVT Confirm Interp Factor V Activity POC ABG pH POC ABG pCO2 POC ABG pO2 ABG pO2 ABG HCO3 ABG Base Excess ABG Hemoglobin Oxyhemoglobin Sodium Potassium Chloride Carbon Dioxide BUN Creatinine Glucose POC Glucose 199 H 186 H Lactic Acid Calcium Ionized Calcium Phosphorus Magnesium Direct Bilirubin AST ALT Alkaline Phosphatase Lactate Dehydrogenase Troponin T C-Reactive Protein Total Protein Albumin Prealbumin Triglycerides Cholesterol LDL Cholesterol Direct HDL Cholesterol 25-OH Vitamin D Total PTH Intact Urine pH Urine WBC (Auto) Urine Creatinine Urine Total Protein Fluid Total Protein Vancomycin Trough Rheumatoid Factor Complement C4 Miscellaneous Test Crossmatch See Detail 09/11/16 09/11/16 09/11/16 05:10 05:10 05:17 WBC 28.4 H RBC Hgb 9.2 L Hct 29.3 L D MCV 73 L MCH 23 L MCHC RDW 18.9 H Plt Count 452 H Lymph % (Auto) [place] % (Auto) Lymph # [place] # Baso # Seg Neutrophils % Seg Neuts % (Manual) 89.5 H Lymphocytes % (Manual) 2.0 L Monocytes % (Manual) Eosinophils % (Manual) Basophils % (Manual) Nucleated RBC % Seg Neutrophils # Seg Neutrophils # Man 25.4 H Lymphocytes # (Manual) 0.6 L Monocytes # (Manual) 1.3 H Eosinophils # (Manual) Basophils # (Manual) PT INR Fibrinogen dRVVT Confirm Interp Factor V Activity POC ABG pH POC ABG pCO2 POC ABG pO2 ABG pO2 ABG HCO3 ABG Base Excess ABG Hemoglobin Oxyhemoglobin Sodium 136 L Potassium Chloride Carbon Dioxide 18 L BUN 107 H Creatinine 2.6 H Glucose 187 H POC Glucose 230 H Lactic Acid Calcium 8.3 L Ionized Calcium Phosphorus Magnesium Direct Bilirubin AST ALT Alkaline Phosphatase Lactate Dehydrogenase Troponin T C-Reactive Protein Total Protein Albumin Prealbumin Triglycerides Cholesterol LDL Cholesterol Direct HDL Cholesterol 25-OH Vitamin D Total PTH Intact Urine pH Urine WBC (Auto) Urine Creatinine Urine Total Protein Fluid Total Protein Vancomycin Trough Rheumatoid Factor Complement C4 Miscellaneous Test Crossmatch 09/11/16 09/11/16 09/11/16 05:55 12:02 17:32 WBC RBC Hgb Hct MCV MCH MCHC RDW Plt Count Lymph % (Auto) [place] % (Auto) Lymph # [place] # Baso # Seg Neutrophils % Seg Neuts % (Manual) Lymphocytes % (Manual) Monocytes % (Manual) Eosinophils % (Manual) Basophils % (Manual) Nucleated RBC % Seg Neutrophils # Seg Neutrophils # Man Lymphocytes # (Manual) Monocytes # (Manual) Eosinophils # (Manual) Basophils # (Manual) PT INR Fibrinogen dRVVT Confirm Interp Factor V Activity POC ABG pH POC ABG pCO2 33.8 L POC ABG pO2 ABG pO2 ABG HCO3 ABG Base Excess ABG Hemoglobin Oxyhemoglobin Sodium Potassium Chloride Carbon Dioxide BUN Creatinine Glucose POC Glucose 191 H 239 H Lactic Acid Calcium Ionized Calcium Phosphorus Magnesium Direct Bilirubin AST ALT Alkaline Phosphatase Lactate Dehydrogenase Troponin T C-Reactive Protein Total Protein Albumin Prealbumin Triglycerides Cholesterol LDL Cholesterol Direct HDL Cholesterol 25-OH Vitamin D Total PTH Intact Urine pH Urine WBC (Auto) Urine Creatinine Urine Total Protein Fluid Total Protein Vancomycin Trough Rheumatoid Factor Complement C4 Miscellaneous Test Crossmatch 09/11/16 09/12/16 09/12/16 23:52 05:09 05:32 WBC RBC Hgb Hct MCV MCH MCHC RDW Plt Count Lymph % (Auto) [place] % (Auto) Lymph # [place] # Baso # Seg Neutrophils % Seg Neuts % (Manual) Lymphocytes % (Manual) Monocytes % (Manual) Eosinophils % (Manual) Basophils % (Manual) Nucleated RBC % Seg Neutrophils # Seg Neutrophils # Man Lymphocytes # (Manual) Monocytes # (Manual) Eosinophils # (Manual) Basophils # (Manual) PT INR Fibrinogen dRVVT Confirm Interp Factor V Activity POC ABG pH POC ABG pCO2 34.6 L POC ABG pO2 ABG pO2 ABG HCO3 ABG Base Excess ABG Hemoglobin Oxyhemoglobin Sodium Potassium Chloride Carbon Dioxide BUN Creatinine Glucose POC Glucose 265 H 184 H Lactic Acid Calcium Ionized Calcium Phosphorus Magnesium Direct Bilirubin AST ALT Alkaline Phosphatase Lactate Dehydrogenase Troponin T C-Reactive Protein Total Protein Albumin Prealbumin Triglycerides Cholesterol LDL Cholesterol Direct HDL Cholesterol 25-OH Vitamin D Total PTH Intact Urine pH Urine WBC (Auto) Urine Creatinine Urine Total Protein Fluid Total Protein Vancomycin Trough Rheumatoid Factor Complement C4 Miscellaneous Test Crossmatch 09/12/16 09/12/16 09/12/16 06:45 06:45 07:22 WBC 31.7 H RBC 3.54 L Hgb 8.3 L Hct 25.9 L MCV 73 L MCH 23 L MCHC RDW 18.9 H Plt Count Lymph % (Auto) [place] % (Auto) Lymph # [place] # Baso # Seg Neutrophils % Seg Neuts % (Manual) 88.5 H Lymphocytes % (Manual) 4.5 L Monocytes % (Manual) Eosinophils % (Manual) Basophils % (Manual) Nucleated RBC % Seg Neutrophils # Seg Neutrophils # Man 28.1 H Lymphocytes # (Manual) Monocytes # (Manual) 1.0 H Eosinophils # (Manual) Basophils # (Manual) PT INR Fibrinogen dRVVT Confirm Interp Factor V Activity POC ABG pH POC ABG pCO2 POC ABG pO2 ABG pO2 ABG HCO3 ABG Base Excess ABG Hemoglobin Oxyhemoglobin Sodium Potassium Chloride Carbon Dioxide 20 L BUN 115 H Creatinine 2.7 H Glucose 165 H POC Glucose Lactic Acid Calcium 8.0 L Ionized Calcium Phosphorus Magnesium Direct Bilirubin AST ALT Alkaline Phosphatase Lactate Dehydrogenase Troponin T C-Reactive Protein Total Protein Albumin Prealbumin Triglycerides 217 H Cholesterol LDL Cholesterol Direct HDL Cholesterol 25-OH Vitamin D Total PTH Intact Urine pH Urine WBC (Auto) Urine Creatinine Urine Total Protein Fluid Total Protein Vancomycin Trough Rheumatoid Factor Complement C4 Miscellaneous Test Crossmatch 09/12/16 09/12/16 09/12/16 07:22 09:59 12:21 WBC RBC Hgb Hct MCV MCH MCHC RDW Plt Count Lymph % (Auto) [place] % (Auto) Lymph # [place] # Baso # Seg Neutrophils % Seg Neuts % (Manual) Lymphocytes % (Manual) Monocytes % (Manual) Eosinophils % (Manual) Basophils % (Manual) Nucleated RBC % Seg Neutrophils # Seg Neutrophils # Man Lymphocytes # (Manual) Monocytes # (Manual) Eosinophils # (Manual) Basophils # (Manual) PT INR Fibrinogen dRVVT Confirm Interp Positive H Factor V Activity POC ABG pH POC ABG pCO2 POC ABG pO2 ABG pO2 ABG HCO3 ABG Base Excess ABG Hemoglobin Oxyhemoglobin Sodium Potassium Chloride Carbon Dioxide BUN Creatinine Glucose POC Glucose 224 H Lactic Acid Calcium Ionized Calcium Phosphorus Magnesium Direct Bilirubin AST ALT Alkaline Phosphatase Lactate Dehydrogenase Troponin T C-Reactive Protein 1.70 H Total Protein Albumin Prealbumin Triglycerides Cholesterol LDL Cholesterol Direct HDL Cholesterol 25-OH Vitamin D Total PTH Intact Urine pH Urine WBC (Auto) Urine Creatinine Urine Total Protein Fluid Total Protein Vancomycin Trough Rheumatoid Factor Complement C4 Miscellaneous Test Crossmatch 09/12/16 09/12/16 09/13/16 16:51 23:28 04:00 WBC 45.0 H* RBC Hgb 9.4 L Hct MCV 75 L MCH 23 L MCHC RDW 19.0 H Plt Count 470 H Lymph % (Auto) [place] % (Auto) Lymph # [place] # Baso # Seg Neutrophils % Seg Neuts % (Manual) 89.0 H Lymphocytes % (Manual) 5.0 L Monocytes % (Manual) Eosinophils % (Manual) Basophils % (Manual) Nucleated RBC % Seg Neutrophils # Seg Neutrophils # Man 40.1 H Lymphocytes # (Manual) Monocytes # (Manual) Eosinophils # (Manual) Basophils # (Manual) PT INR Fibrinogen dRVVT Confirm Interp Factor V Activity POC ABG pH POC ABG pCO2 POC ABG pO2 ABG pO2 ABG HCO3 ABG Base Excess ABG Hemoglobin Oxyhemoglobin Sodium Potassium Chloride Carbon Dioxide BUN Creatinine Glucose POC Glucose 169 H 150 H Lactic Acid Calcium Ionized Calcium Phosphorus Magnesium Direct Bilirubin AST ALT Alkaline Phosphatase Lactate Dehydrogenase Troponin T C-Reactive Protein Total Protein Albumin Prealbumin Triglycerides Cholesterol LDL Cholesterol Direct HDL Cholesterol 25-OH Vitamin D Total PTH Intact Urine pH Urine WBC (Auto) Urine Creatinine Urine Total Protein Fluid Total Protein Vancomycin Trough Rheumatoid Factor Complement C4 Miscellaneous Test Crossmatch 09/13/16 09/13/16 09/13/16 04:00 11:26 17:31 WBC RBC Hgb Hct MCV MCH MCHC RDW Plt Count Lymph % (Auto) [place] % (Auto) Lymph # [place] # Baso # Seg Neutrophils % Seg Neuts % (Manual) Lymphocytes % (Manual) Monocytes % (Manual) Eosinophils % (Manual) Basophils % (Manual) Nucleated RBC % Seg Neutrophils # Seg Neutrophils # Man Lymphocytes # (Manual) Monocytes # (Manual) Eosinophils # (Manual) Basophils # (Manual) PT INR Fibrinogen dRVVT Confirm Interp Factor V Activity POC ABG pH POC ABG pCO2 POC ABG pO2 ABG pO2 ABG HCO3 ABG Base Excess ABG Hemoglobin Oxyhemoglobin Sodium Potassium Chloride Carbon Dioxide 20 L BUN 116 H Creatinine 3.0 H Glucose 172 H POC Glucose 140 H 183 H Lactic Acid Calcium Ionized Calcium Phosphorus Magnesium Direct Bilirubin AST ALT Alkaline Phosphatase Lactate Dehydrogenase Troponin T C-Reactive Protein Total Protein 6.2 L Albumin 2.9 L Prealbumin Triglycerides Cholesterol LDL Cholesterol Direct HDL Cholesterol 25-OH Vitamin D Total PTH Intact Urine pH Urine WBC (Auto) Urine Creatinine Urine Total Protein Fluid Total Protein Vancomycin Trough Rheumatoid Factor Complement C4 Miscellaneous Test Crossmatch 09/13/16 09/14/16 09/14/16 23:23 04:06 04:07 WBC 29.4 H RBC Hgb 8.9 L Hct 27.3 L MCV 75 L MCH 24 L MCHC RDW 19.1 H Plt Count Lymph % (Auto) [place] % (Auto) Lymph # [place] # Baso # Seg Neutrophils % Seg Neuts % (Manual) 84.0 H Lymphocytes % (Manual) 6.0 L Monocytes % (Manual) 9.0 H Eosinophils % (Manual) Basophils % (Manual) Nucleated RBC % Seg Neutrophils # Seg Neutrophils # Man 24.7 H Lymphocytes # (Manual) Monocytes # (Manual) 2.6 H Eosinophils # (Manual) Basophils # (Manual) PT INR Fibrinogen dRVVT Confirm Interp Factor V Activity POC ABG pH 7.342 L POC ABG pCO2 POC ABG pO2 116 H ABG pO2 ABG HCO3 ABG Base Excess ABG Hemoglobin Oxyhemoglobin Sodium Potassium Chloride Carbon Dioxide BUN Creatinine Glucose POC Glucose 154 H Lactic Acid Calcium Ionized Calcium Phosphorus Magnesium Direct Bilirubin AST ALT Alkaline Phosphatase Lactate Dehydrogenase Troponin T C-Reactive Protein Total Protein Albumin Prealbumin Triglycerides Cholesterol LDL Cholesterol Direct HDL Cholesterol 25-OH Vitamin D Total PTH Intact Urine pH Urine WBC (Auto) Urine Creatinine Urine Total Protein Fluid Total Protein Vancomycin Trough Rheumatoid Factor Complement C4 Miscellaneous Test Crossmatch 09/14/16 09/14/16 09/14/16 04:07 05:29 12:19 WBC RBC Hgb Hct MCV MCH MCHC RDW Plt Count Lymph % (Auto) [place] % (Auto) Lymph # [place] # Baso # Seg Neutrophils % Seg Neuts % (Manual) Lymphocytes % (Manual) Monocytes % (Manual) Eosinophils % (Manual) Basophils % (Manual) Nucleated RBC % Seg Neutrophils # Seg Neutrophils # Man Lymphocytes # (Manual) Monocytes # (Manual) Eosinophils # (Manual) Basophils # (Manual) PT INR Fibrinogen dRVVT Confirm Interp Factor V Activity POC ABG pH POC ABG pCO2 POC ABG pO2 ABG pO2 ABG HCO3 ABG Base Excess ABG Hemoglobin Oxyhemoglobin Sodium 136 L Potassium Chloride Carbon Dioxide 18 L BUN 121 H Creatinine 2.8 H Glucose 214 H POC Glucose 239 H 181 H Lactic Acid Calcium Ionized Calcium Phosphorus Magnesium Direct Bilirubin AST ALT Alkaline Phosphatase Lactate Dehydrogenase Troponin T C-Reactive Protein Total Protein Albumin Prealbumin Triglycerides Cholesterol LDL Cholesterol Direct HDL Cholesterol 25-OH Vitamin D Total PTH Intact Urine pH Urine WBC (Auto) Urine Creatinine Urine Total Protein Fluid Total Protein Vancomycin Trough Rheumatoid Factor Complement C4 Miscellaneous Test Crossmatch 09/14/16 09/14/16 09/15/16 18:12 23:37 05:00 WBC 26.1 H RBC 3.05 L Hgb 7.2 L Hct 22.9 L MCV 75 L MCH 24 L MCHC RDW 19.0 H Plt Count Lymph % (Auto) [place] % (Auto) Lymph # [place] # Baso # Seg Neutrophils % Seg Neuts % (Manual) Lymphocytes % (Manual) Monocytes % (Manual) Eosinophils % (Manual) Basophils % (Manual) Nucleated RBC % Seg Neutrophils # Seg Neutrophils # Man Lymphocytes # (Manual) Monocytes # (Manual) Eosinophils # (Manual) Basophils # (Manual) PT INR Fibrinogen dRVVT Confirm Interp Factor V Activity POC ABG pH POC ABG pCO2 POC ABG pO2 ABG pO2 ABG HCO3 ABG Base Excess ABG Hemoglobin Oxyhemoglobin Sodium Potassium Chloride Carbon Dioxide BUN Creatinine Glucose POC Glucose 266 H 154 H Lactic Acid Calcium Ionized Calcium Phosphorus Magnesium Direct Bilirubin AST ALT Alkaline Phosphatase Lactate Dehydrogenase Troponin T C-Reactive Protein Total Protein Albumin Prealbumin Triglycerides Cholesterol LDL Cholesterol Direct HDL Cholesterol 25-OH Vitamin D Total PTH Intact Urine pH Urine WBC (Auto) Urine Creatinine Urine Total Protein Fluid Total Protein Vancomycin Trough Rheumatoid Factor Complement C4 Miscellaneous Test Crossmatch 09/15/16 09/15/16 09/15/16 05:00 05:17 12:45 WBC RBC Hgb Hct MCV MCH MCHC RDW Plt Count Lymph % (Auto) [place] % (Auto) Lymph # [place] # Baso # Seg Neutrophils % Seg Neuts % (Manual) Lymphocytes % (Manual) Monocytes % (Manual) Eosinophils % (Manual) Basophils % (Manual) Nucleated RBC % Seg Neutrophils # Seg Neutrophils # Man Lymphocytes # (Manual) Monocytes # (Manual) Eosinophils # (Manual) Basophils # (Manual) PT INR Fibrinogen dRVVT Confirm Interp Factor V Activity POC ABG pH POC ABG pCO2 POC ABG pO2 ABG pO2 ABG HCO3 ABG Base Excess ABG Hemoglobin Oxyhemoglobin Sodium Potassium 5.2 H Chloride Carbon Dioxide 18 L BUN 139 H Creatinine 3.7 H Glucose 227 H POC Glucose 226 H 244 H Lactic Acid Calcium 8.3 L Ionized Calcium Phosphorus Magnesium Direct Bilirubin AST ALT Alkaline Phosphatase Lactate Dehydrogenase Troponin T C-Reactive Protein Total Protein Albumin Prealbumin Triglycerides Cholesterol LDL Cholesterol Direct HDL Cholesterol 25-OH Vitamin D Total PTH Intact Urine pH Urine WBC (Auto) Urine Creatinine Urine Total Protein Fluid Total Protein Vancomycin Trough Rheumatoid Factor Complement C4 Miscellaneous Test Crossmatch 09/15/16 09/15/16 09/15/16 14:32 17:33 23:35 WBC RBC Hgb Hct MCV MCH MCHC RDW Plt Count Lymph % (Auto) [place] % (Auto) Lymph # [place] # Baso # Seg Neutrophils % Seg Neuts % (Manual) Lymphocytes % (Manual) Monocytes % (Manual) Eosinophils % (Manual) Basophils % (Manual) Nucleated RBC % Seg Neutrophils # Seg Neutrophils # Man Lymphocytes # (Manual) Monocytes # (Manual) Eosinophils # (Manual) Basophils # (Manual) PT INR Fibrinogen dRVVT Confirm Interp Factor V Activity POC ABG pH POC ABG pCO2 27.7 L POC ABG pO2 120 H ABG pO2 ABG HCO3 ABG Base Excess ABG Hemoglobin Oxyhemoglobin Sodium Potassium Chloride Carbon Dioxide BUN Creatinine Glucose POC Glucose 232 H 167 H Lactic Acid Calcium Ionized Calcium Phosphorus Magnesium Direct Bilirubin AST ALT Alkaline Phosphatase Lactate Dehydrogenase Troponin T C-Reactive Protein Total Protein Albumin Prealbumin Triglycerides Cholesterol LDL Cholesterol Direct HDL Cholesterol 25-OH Vitamin D Total PTH Intact Urine pH Urine WBC (Auto) Urine Creatinine Urine Total Protein Fluid Total Protein Vancomycin Trough Rheumatoid Factor Complement C4 Miscellaneous Test Crossmatch 09/16/16 09/16/16 09/16/16 03:58 10:27 10:27 WBC 19.0 H RBC 2.77 L Hgb 6.5 L Hct 20.9 L MCV 76 L MCH 23 L MCHC RDW 19.3 H Plt Count Lymph % (Auto) 11.0 L [place] % (Auto) Lymph # [place] # 1.1 H Baso # Seg Neutrophils % 82.5 H Seg Neuts % (Manual) Lymphocytes % (Manual) Monocytes % (Manual) Eosinophils % (Manual) Basophils % (Manual) Nucleated RBC % Seg Neutrophils # 15.7 H Seg Neutrophils # Man Lymphocytes # (Manual) Monocytes # (Manual) Eosinophils # (Manual) Basophils # (Manual) PT INR Fibrinogen dRVVT Confirm Interp Factor V Activity POC ABG pH POC ABG pCO2 POC ABG pO2 ABG pO2 ABG HCO3 ABG Base Excess ABG Hemoglobin Oxyhemoglobin Sodium Potassium Chloride 109.3 H Carbon Dioxide 18 L BUN 139 H Creatinine 4.1 H Glucose 144 H POC Glucose 146 H Lactic Acid Calcium 8.1 L Ionized Calcium Phosphorus Magnesium Direct Bilirubin AST ALT Alkaline Phosphatase Lactate Dehydrogenase Troponin T C-Reactive Protein Total Protein Albumin Prealbumin Triglycerides Cholesterol LDL Cholesterol Direct HDL Cholesterol 25-OH Vitamin D Total PTH Intact Urine pH Urine WBC (Auto) Urine Creatinine Urine Total Protein Fluid Total Protein Vancomycin Trough Rheumatoid Factor Complement C4 Miscellaneous Test Crossmatch 09/16/16 09/16/16 09/16/16 12:04 12:10 13:55 WBC RBC Hgb Hct MCV MCH MCHC RDW Plt Count Lymph % (Auto) [place] % (Auto) Lymph # [place] # Baso # Seg Neutrophils % Seg Neuts % (Manual) Lymphocytes % (Manual) Monocytes % (Manual) Eosinophils % (Manual) Basophils % (Manual) Nucleated RBC % Seg Neutrophils # Seg Neutrophils # Man Lymphocytes # (Manual) Monocytes # (Manual) Eosinophils # (Manual) Basophils # (Manual) PT INR Fibrinogen dRVVT Confirm Interp Factor V Activity POC ABG pH POC ABG pCO2 32.9 L POC ABG pO2 ABG pO2 ABG HCO3 ABG Base Excess ABG Hemoglobin Oxyhemoglobin Sodium Potassium Chloride Carbon Dioxide BUN Creatinine Glucose POC Glucose 185 H Lactic Acid Calcium Ionized Calcium Phosphorus Magnesium Direct Bilirubin AST ALT Alkaline Phosphatase Lactate Dehydrogenase Troponin T C-Reactive Protein Total Protein Albumin Prealbumin Triglycerides Cholesterol LDL Cholesterol Direct HDL Cholesterol 25-OH Vitamin D Total PTH Intact Urine pH Urine WBC (Auto) Urine Creatinine Urine Total Protein Fluid Total Protein Vancomycin Trough Rheumatoid Factor Complement C4 Miscellaneous Test Crossmatch See Detail 09/16/16 09/16/16 09/16/16 17:55 19:19 23:48 WBC RBC Hgb Hct MCV MCH MCHC RDW Plt Count Lymph % (Auto) [place] % (Auto) Lymph # [place] # Baso # Seg Neutrophils % Seg Neuts % (Manual) Lymphocytes % (Manual) Monocytes % (Manual) Eosinophils % (Manual) Basophils % (Manual) Nucleated RBC % Seg Neutrophils # Seg Neutrophils # Man Lymphocytes # (Manual) Monocytes # (Manual) Eosinophils # (Manual) Basophils # (Manual) PT INR Fibrinogen dRVVT Confirm Interp Factor V Activity POC ABG pH POC ABG pCO2 POC ABG pO2 ABG pO2 ABG HCO3 ABG Base Excess ABG Hemoglobin Oxyhemoglobin Sodium Potassium Chloride Carbon Dioxide BUN Creatinine Glucose POC Glucose 222 H 107 H Lactic Acid Calcium Ionized Calcium Phosphorus Magnesium Direct Bilirubin AST ALT Alkaline Phosphatase Lactate Dehydrogenase Troponin T C-Reactive Protein Total Protein Albumin Prealbumin Triglycerides Cholesterol LDL Cholesterol Direct HDL Cholesterol 25-OH Vitamin D Total PTH Intact Urine pH Urine WBC (Auto) Urine Creatinine 47.4 H Urine Total Protein 16 H Fluid Total Protein Vancomycin Trough Rheumatoid Factor Complement C4 Miscellaneous Test Crossmatch 09/17/16 09/17/16 09/17/16 03:45 03:45 04:55 WBC 19.6 H RBC 3.41 L Hgb 8.5 L Hct 26.7 L MCV 78 L MCH 25 L MCHC RDW 19.9 H Plt Count Lymph % (Auto) 9.3 L [place] % (Auto) Lymph # [place] # 1.2 H Baso # Seg Neutrophils % 83.9 H Seg Neuts % (Manual) Lymphocytes % (Manual) Monocytes % (Manual) Eosinophils % (Manual) Basophils % (Manual) Nucleated RBC % Seg Neutrophils # 16.4 H Seg Neutrophils # Man Lymphocytes # (Manual) Monocytes # (Manual) Eosinophils # (Manual) Basophils # (Manual) PT INR Fibrinogen dRVVT Confirm Interp Factor V Activity POC ABG pH POC ABG pCO2 POC ABG pO2 ABG pO2 ABG HCO3 ABG Base Excess ABG Hemoglobin Oxyhemoglobin Sodium 146 H Potassium 5.1 H Chloride 110.9 H Carbon Dioxide 16 L BUN 146 H Creatinine 4.0 H Glucose 108 H POC Glucose 133 H Lactic Acid Calcium Ionized Calcium Phosphorus Magnesium 3.00 H Direct Bilirubin AST ALT Alkaline Phosphatase Lactate Dehydrogenase Troponin T C-Reactive Protein Total Protein Albumin Prealbumin Triglycerides Cholesterol LDL Cholesterol Direct HDL Cholesterol 25-OH Vitamin D Total PTH Intact Urine pH Urine WBC (Auto) Urine Creatinine Urine Total Protein Fluid Total Protein Vancomycin Trough Rheumatoid Factor Complement C4 Miscellaneous Test Crossmatch 09/17/16 09/17/16 09/17/16 11:15 17:33 23:47 WBC RBC Hgb Hct MCV MCH MCHC RDW Plt Count Lymph % (Auto) [place] % (Auto) Lymph # [place] # Baso # Seg Neutrophils % Seg Neuts % (Manual) Lymphocytes % (Manual) Monocytes % (Manual) Eosinophils % (Manual) Basophils % (Manual) Nucleated RBC % Seg Neutrophils # Seg Neutrophils # Man Lymphocytes # (Manual) Monocytes # (Manual) Eosinophils # (Manual) Basophils # (Manual) PT INR Fibrinogen dRVVT Confirm Interp Factor V Activity POC ABG pH POC ABG pCO2 POC ABG pO2 ABG pO2 ABG HCO3 ABG Base Excess ABG Hemoglobin Oxyhemoglobin Sodium Potassium Chloride Carbon Dioxide BUN Creatinine Glucose POC Glucose 176 H 246 H 148 H Lactic Acid Calcium Ionized Calcium Phosphorus Magnesium Direct Bilirubin AST ALT Alkaline Phosphatase Lactate Dehydrogenase Troponin T C-Reactive Protein Total Protein Albumin Prealbumin Triglycerides Cholesterol LDL Cholesterol Direct HDL Cholesterol 25-OH Vitamin D Total PTH Intact Urine pH Urine WBC (Auto) Urine Creatinine Urine Total Protein Fluid Total Protein Vancomycin Trough Rheumatoid Factor Complement C4 Miscellaneous Test Crossmatch 09/18/16 09/18/16 09/18/16 05:33 08:31 08:31 WBC 18.0 H RBC 3.17 L Hgb 9.0 L Hct 25.7 L MCV MCH MCHC 35 H RDW 20.4 H Plt Count Lymph % (Auto) [place] % (Auto) Lymph # [place] # Baso # Seg Neutrophils % Seg Neuts % (Manual) Lymphocytes % (Manual) Monocytes % (Manual) Eosinophils % (Manual) Basophils % (Manual) Nucleated RBC % Seg Neutrophils # Seg Neutrophils # Man Lymphocytes # (Manual) Monocytes # (Manual) Eosinophils # (Manual) Basophils # (Manual) PT INR Fibrinogen dRVVT Confirm Interp Factor V Activity POC ABG pH POC ABG pCO2 POC ABG pO2 ABG pO2 ABG HCO3 ABG Base Excess ABG Hemoglobin Oxyhemoglobin Sodium Potassium Chloride Carbon Dioxide 15 L BUN 124 H Creatinine 3.8 H Glucose POC Glucose 120 H Lactic Acid Calcium 8.1 L Ionized Calcium Phosphorus Magnesium Direct Bilirubin AST ALT Alkaline Phosphatase Lactate Dehydrogenase Troponin T C-Reactive Protein Total Protein Albumin Prealbumin Triglycerides Cholesterol LDL Cholesterol Direct HDL Cholesterol 25-OH Vitamin D Total PTH Intact Urine pH Urine WBC (Auto) Urine Creatinine Urine Total Protein Fluid Total Protein Vancomycin Trough Rheumatoid Factor Complement C4 Miscellaneous Test Crossmatch 09/18/16 09/18/16 09/18/16 12:03 15:34 17:50 WBC RBC Hgb Hct MCV MCH MCHC RDW Plt Count Lymph % (Auto) [place] % (Auto) Lymph # [place] # Baso # Seg Neutrophils % Seg Neuts % (Manual) Lymphocytes % (Manual) Monocytes % (Manual) Eosinophils % (Manual) Basophils % (Manual) Nucleated RBC % Seg Neutrophils # Seg Neutrophils # Man Lymphocytes # (Manual) Monocytes # (Manual) Eosinophils # (Manual) Basophils # (Manual) PT INR Fibrinogen dRVVT Confirm Interp Factor V Activity POC ABG pH POC ABG pCO2 25.7 L POC ABG pO2 66 L ABG pO2 ABG HCO3 ABG Base Excess ABG Hemoglobin Oxyhemoglobin Sodium Potassium Chloride Carbon Dioxide BUN Creatinine Glucose POC Glucose 156 H 220 H Lactic Acid Calcium Ionized Calcium Phosphorus Magnesium Direct Bilirubin AST ALT Alkaline Phosphatase Lactate Dehydrogenase Troponin T C-Reactive Protein Total Protein Albumin Prealbumin Triglycerides Cholesterol LDL Cholesterol Direct HDL Cholesterol 25-OH Vitamin D Total PTH Intact Urine pH Urine WBC (Auto) Urine Creatinine Urine Total Protein Fluid Total Protein Vancomycin Trough Rheumatoid Factor Complement C4 Miscellaneous Test Crossmatch 09/19/16 09/19/16 09/19/16 06:21 09:50 09:50 WBC 17.1 H RBC 3.49 L Hgb 9.0 L Hct 28.1 L MCV MCH 26 L MCHC RDW 20.8 H Plt Count Lymph % (Auto) 11.5 L [place] % (Auto) 7.5 H Lymph # [place] # 1.3 H Baso # Seg Neutrophils % 79.8 H Seg Neuts % (Manual) Lymphocytes % (Manual) Monocytes % (Manual) Eosinophils % (Manual) Basophils % (Manual) Nucleated RBC % Seg Neutrophils # 13.7 H Seg Neutrophils # Man Lymphocytes # (Manual) Monocytes # (Manual) Eosinophils # (Manual) Basophils # (Manual) PT INR Fibrinogen dRVVT Confirm Interp Factor V Activity POC ABG pH POC ABG pCO2 POC ABG pO2 ABG pO2 ABG HCO3 ABG Base Excess ABG Hemoglobin Oxyhemoglobin Sodium Potassium Chloride 108.6 H Carbon Dioxide 15 L BUN 125 H Creatinine 4.1 H Glucose 124 H POC Glucose 119 H Lactic Acid Calcium Ionized Calcium Phosphorus Magnesium Direct Bilirubin AST ALT Alkaline Phosphatase Lactate Dehydrogenase Troponin T C-Reactive Protein Total Protein Albumin Prealbumin Triglycerides Cholesterol LDL Cholesterol Direct HDL Cholesterol 25-OH Vitamin D Total PTH Intact Urine pH Urine WBC (Auto) Urine Creatinine Urine Total Protein Fluid Total Protein Vancomycin Trough Rheumatoid Factor Complement C4 Miscellaneous Test Crossmatch 09/19/16 09/19/16 09/19/16 11:25 17:53 23:36 WBC RBC Hgb Hct MCV MCH MCHC RDW Plt Count Lymph % (Auto) [place] % (Auto) Lymph # [place] # Baso # Seg Neutrophils % Seg Neuts % (Manual) Lymphocytes % (Manual) Monocytes % (Manual) Eosinophils % (Manual) Basophils % (Manual) Nucleated RBC % Seg Neutrophils # Seg Neutrophils # Man Lymphocytes # (Manual) Monocytes # (Manual) Eosinophils # (Manual) Basophils # (Manual) PT INR Fibrinogen dRVVT Confirm Interp Factor V Activity POC ABG pH POC ABG pCO2 POC ABG pO2 ABG pO2 ABG HCO3 ABG Base Excess ABG Hemoglobin Oxyhemoglobin Sodium Potassium Chloride Carbon Dioxide BUN Creatinine Glucose POC Glucose 160 H 245 H 121 H Lactic Acid Calcium Ionized Calcium Phosphorus Magnesium Direct Bilirubin AST ALT Alkaline Phosphatase Lactate Dehydrogenase Troponin T C-Reactive Protein Total Protein Albumin Prealbumin Triglycerides Cholesterol LDL Cholesterol Direct HDL Cholesterol 25-OH Vitamin D Total PTH Intact Urine pH Urine WBC (Auto) Urine Creatinine Urine Total Protein Fluid Total Protein Vancomycin Trough Rheumatoid Factor Complement C4 Miscellaneous Test Crossmatch 09/20/16 09/20/16 09/20/16 04:10 04:10 04:10 WBC 17.0 H RBC 3.21 L Hgb 8.2 L Hct 25.5 L MCV MCH 26 L MCHC RDW 20.9 H Plt Count Lymph % (Auto) [place] % (Auto) Lymph # [place] # Baso # Seg Neutrophils % Seg Neuts % (Manual) Lymphocytes % (Manual) Monocytes % (Manual) Eosinophils % (Manual) Basophils % (Manual) Nucleated RBC % Seg Neutrophils # Seg Neutrophils # Man Lymphocytes # (Manual) Monocytes # (Manual) Eosinophils # (Manual) Basophils # (Manual) PT INR Fibrinogen dRVVT Confirm Interp Factor V Activity POC ABG pH POC ABG pCO2 POC ABG pO2 ABG pO2 ABG HCO3 ABG Base Excess ABG Hemoglobin Oxyhemoglobin Sodium Potassium Chloride 111.0 H Carbon Dioxide 16 L BUN 129 H Creatinine 3.7 H Glucose 115 H POC Glucose Lactic Acid Calcium 8.2 L Ionized Calcium Phosphorus Magnesium Direct Bilirubin AST ALT Alkaline Phosphatase Lactate Dehydrogenase Troponin T C-Reactive Protein Total Protein Albumin Prealbumin Triglycerides 243 H Cholesterol LDL Cholesterol Direct HDL Cholesterol 25-OH Vitamin D Total PTH Intact Urine pH Urine WBC (Auto) Urine Creatinine Urine Total Protein Fluid Total Protein Vancomycin Trough Rheumatoid Factor Complement C4 Miscellaneous Test Crossmatch 09/20/16 09/20/16 09/20/16 05:40 11:52 16:50 WBC RBC Hgb Hct MCV MCH MCHC RDW Plt Count Lymph % (Auto) [place] % (Auto) Lymph # [place] # Baso # Seg Neutrophils % Seg Neuts % (Manual) Lymphocytes % (Manual) Monocytes % (Manual) Eosinophils % (Manual) Basophils % (Manual) Nucleated RBC % Seg Neutrophils # Seg Neutrophils # Man Lymphocytes # (Manual) Monocytes # (Manual) Eosinophils # (Manual) Basophils # (Manual) PT INR Fibrinogen dRVVT Confirm Interp Factor V Activity POC ABG pH POC ABG pCO2 POC ABG pO2 ABG pO2 ABG HCO3 ABG Base Excess ABG Hemoglobin Oxyhemoglobin Sodium Potassium Chloride Carbon Dioxide BUN Creatinine Glucose POC Glucose 131 H 183 H 236 H Lactic Acid Calcium Ionized Calcium Phosphorus Magnesium Direct Bilirubin AST ALT Alkaline Phosphatase Lactate Dehydrogenase Troponin T C-Reactive Protein Total Protein Albumin Prealbumin Triglycerides Cholesterol LDL Cholesterol Direct HDL Cholesterol 25-OH Vitamin D Total PTH Intact Urine pH Urine WBC (Auto) Urine Creatinine Urine Total Protein Fluid Total Protein Vancomycin Trough Rheumatoid Factor Complement C4 Miscellaneous Test Crossmatch 09/20/16 09/21/16 09/21/16 23:51 03:30 04:44 WBC RBC Hgb Hct MCV MCH MCHC RDW Plt Count Lymph % (Auto) [place] % (Auto) Lymph # [place] # Baso # Seg Neutrophils % Seg Neuts % (Manual) Lymphocytes % (Manual) Monocytes % (Manual) Eosinophils % (Manual) Basophils % (Manual) Nucleated RBC % Seg Neutrophils # Seg Neutrophils # Man Lymphocytes # (Manual) Monocytes # (Manual) Eosinophils # (Manual) Basophils # (Manual) PT INR Fibrinogen dRVVT Confirm Interp Factor V Activity POC ABG pH POC ABG pCO2 POC ABG pO2 ABG pO2 ABG HCO3 ABG Base Excess ABG Hemoglobin Oxyhemoglobin Sodium Potassium Chloride Carbon Dioxide BUN Creatinine Glucose POC Glucose 114 H 141 H Lactic Acid Calcium Ionized Calcium Phosphorus Magnesium 2.70 H Direct Bilirubin AST ALT Alkaline Phosphatase Lactate Dehydrogenase Troponin T C-Reactive Protein Total Protein Albumin Prealbumin Triglycerides Cholesterol LDL Cholesterol Direct HDL Cholesterol 25-OH Vitamin D Total PTH Intact Urine pH Urine WBC (Auto) Urine Creatinine Urine Total Protein Fluid Total Protein Vancomycin Trough Rheumatoid Factor Complement C4 Miscellaneous Test Crossmatch 09/21/16 09/21/16 09/21/16 07:45 07:45 10:01 WBC 13.8 H RBC 2.94 L Hgb 7.5 L Hct 23.5 L MCV MCH 26 L MCHC RDW 21.2 H Plt Count Lymph % (Auto) 6.9 L [place] % (Auto) 9.4 H Lymph # 0.9 L [place] # 1.3 H Baso # Seg Neutrophils % 83.2 H Seg Neuts % (Manual) Lymphocytes % (Manual) Monocytes % (Manual) Eosinophils % (Manual) Basophils % (Manual) Nucleated RBC % Seg Neutrophils # 11.5 H Seg Neutrophils # Man Lymphocytes # (Manual) Monocytes # (Manual) Eosinophils # (Manual) Basophils # (Manual) PT INR Fibrinogen dRVVT Confirm Interp Factor V Activity POC ABG pH 7.308 L POC ABG pCO2 31.9 L POC ABG pO2 148 H ABG pO2 ABG HCO3 ABG Base Excess ABG Hemoglobin Oxyhemoglobin Sodium 147 H Potassium Chloride 114.2 H Carbon Dioxide 15 L BUN 120 H Creatinine 3.9 H Glucose 156 H POC Glucose Lactic Acid Calcium 8.2 L Ionized Calcium Phosphorus Magnesium Direct Bilirubin AST ALT Alkaline Phosphatase Lactate Dehydrogenase Troponin T C-Reactive Protein Total Protein Albumin Prealbumin Triglycerides Cholesterol LDL Cholesterol Direct HDL Cholesterol 25-OH Vitamin D Total PTH Intact Urine pH Urine WBC (Auto) Urine Creatinine Urine Total Protein Fluid Total Protein Vancomycin Trough Rheumatoid Factor Complement C4 Miscellaneous Test Crossmatch 09/21/16 09/21/16 09/21/16 12:00 12:03 13:00 WBC RBC Hgb Hct MCV MCH MCHC RDW Plt Count Lymph % (Auto) [place] % (Auto) Lymph # [place] # Baso # Seg Neutrophils % Seg Neuts % (Manual) Lymphocytes % (Manual) Monocytes % (Manual) Eosinophils % (Manual) Basophils % (Manual) Nucleated RBC % Seg Neutrophils # Seg Neutrophils # Man Lymphocytes # (Manual) Monocytes # (Manual) Eosinophils # (Manual) Basophils # (Manual) PT INR Fibrinogen dRVVT Confirm Interp Factor V Activity POC ABG pH POC ABG pCO2 POC ABG pO2 ABG pO2 ABG HCO3 ABG Base Excess ABG Hemoglobin Oxyhemoglobin Sodium Potassium Chloride Carbon Dioxide BUN Creatinine Glucose POC Glucose 163 H Lactic Acid Calcium Ionized Calcium Phosphorus Magnesium Direct Bilirubin AST ALT Alkaline Phosphatase Lactate Dehydrogenase Troponin T C-Reactive Protein Total Protein Albumin Prealbumin Triglycerides Cholesterol LDL Cholesterol Direct HDL Cholesterol 25-OH Vitamin D Total PTH Intact Urine pH Urine WBC (Auto) Urine Creatinine 54.8 H Urine Total Protein Fluid Total Protein Vancomycin Trough 2.3 L Rheumatoid Factor Complement C4 Miscellaneous Test Crossmatch 09/21/16 09/21/16 09/22/16 16:51 23:17 06:27 WBC RBC Hgb Hct MCV MCH MCHC RDW Plt Count Lymph % (Auto) [place] % (Auto) Lymph # [place] # Baso # Seg Neutrophils % Seg Neuts % (Manual) Lymphocytes % (Manual) Monocytes % (Manual) Eosinophils % (Manual) Basophils % (Manual) Nucleated RBC % Seg Neutrophils # Seg Neutrophils # Man Lymphocytes # (Manual) Monocytes # (Manual) Eosinophils # (Manual) Basophils # (Manual) PT INR Fibrinogen dRVVT Confirm Interp Factor V Activity POC ABG pH POC ABG pCO2 POC ABG pO2 ABG pO2 ABG HCO3 ABG Base Excess ABG Hemoglobin Oxyhemoglobin Sodium Potassium Chloride Carbon Dioxide BUN Creatinine Glucose POC Glucose 206 H 114 H 115 H Lactic Acid Calcium Ionized Calcium Phosphorus Magnesium Direct Bilirubin AST ALT Alkaline Phosphatase Lactate Dehydrogenase Troponin T C-Reactive Protein Total Protein Albumin Prealbumin Triglycerides Cholesterol LDL Cholesterol Direct HDL Cholesterol 25-OH Vitamin D Total PTH Intact Urine pH Urine WBC (Auto) Urine Creatinine Urine Total Protein Fluid Total Protein Vancomycin Trough Rheumatoid Factor Complement C4 Miscellaneous Test Crossmatch 09/22/16 09/22/16 09/22/16 07:50 07:50 12:00 WBC 17.8 H RBC 3.04 L Hgb 8.0 L Hct 24.7 L MCV MCH 26 L MCHC RDW 21.6 H Plt Count Lymph % (Auto) [place] % (Auto) Lymph # [place] # Baso # Seg Neutrophils % Seg Neuts % (Manual) Lymphocytes % (Manual) Monocytes % (Manual) Eosinophils % (Manual) Basophils % (Manual) Nucleated RBC % Seg Neutrophils # Seg Neutrophils # Man Lymphocytes # (Manual) Monocytes # (Manual) Eosinophils # (Manual) Basophils # (Manual) PT INR Fibrinogen dRVVT Confirm Interp Factor V Activity POC ABG pH POC ABG pCO2 POC ABG pO2 ABG pO2 ABG HCO3 ABG Base Excess ABG Hemoglobin Oxyhemoglobin Sodium 150 H Potassium Chloride 118.2 H Carbon Dioxide 14 L BUN 111 H Creatinine 3.7 H Glucose 157 H POC Glucose 183 H Lactic Acid Calcium Ionized Calcium Phosphorus Magnesium Direct Bilirubin AST ALT Alkaline Phosphatase Lactate Dehydrogenase Troponin T C-Reactive Protein Total Protein Albumin Prealbumin Triglycerides Cholesterol LDL Cholesterol Direct HDL Cholesterol 25-OH Vitamin D Total PTH Intact Urine pH Urine WBC (Auto) Urine Creatinine Urine Total Protein Fluid Total Protein Vancomycin Trough Rheumatoid Factor Complement C4 Miscellaneous Test Crossmatch 09/22/16 09/22/16 09/23/16 17:29 23:10 05:00 WBC 19.2 H RBC 3.13 L Hgb 8.0 L Hct 25.2 L MCV MCH 26 L MCHC RDW 22.1 H Plt Count Lymph % (Auto) [place] % (Auto) Lymph # [place] # Baso # Seg Neutrophils % Seg Neuts % (Manual) 92.0 H Lymphocytes % (Manual) 3.0 L Monocytes % (Manual) Eosinophils % (Manual) Basophils % (Manual) Nucleated RBC % Seg Neutrophils # Seg Neutrophils # Man 17.7 H Lymphocytes # (Manual) 0.6 L Monocytes # (Manual) Eosinophils # (Manual) Basophils # (Manual) PT INR Fibrinogen dRVVT Confirm Interp Factor V Activity POC ABG pH POC ABG pCO2 POC ABG pO2 ABG pO2 ABG HCO3 ABG Base Excess ABG Hemoglobin Oxyhemoglobin Sodium Potassium Chloride Carbon Dioxide BUN Creatinine Glucose POC Glucose 197 H 169 H Lactic Acid Calcium Ionized Calcium Phosphorus Magnesium Direct Bilirubin AST ALT Alkaline Phosphatase Lactate Dehydrogenase Troponin T C-Reactive Protein Total Protein Albumin Prealbumin Triglycerides Cholesterol LDL Cholesterol Direct HDL Cholesterol 25-OH Vitamin D Total PTH Intact Urine pH Urine WBC (Auto) Urine Creatinine Urine Total Protein Fluid Total Protein Vancomycin Trough Rheumatoid Factor Complement C4 Miscellaneous Test Crossmatch 09/23/16 09/23/16 09/23/16 05:00 05:00 05:10 WBC RBC Hgb Hct MCV MCH MCHC RDW Plt Count Lymph % (Auto) [place] % (Auto) Lymph # [place] # Baso # Seg Neutrophils % Seg Neuts % (Manual) Lymphocytes % (Manual) Monocytes % (Manual) Eosinophils % (Manual) Basophils % (Manual) Nucleated RBC % Seg Neutrophils # Seg Neutrophils # Man Lymphocytes # (Manual) Monocytes # (Manual) Eosinophils # (Manual) Basophils # (Manual) PT INR Fibrinogen dRVVT Confirm Interp Factor V Activity POC ABG pH POC ABG pCO2 POC ABG pO2 ABG pO2 ABG HCO3 ABG Base Excess ABG Hemoglobin Oxyhemoglobin Sodium 147 H Potassium 3.2 L Chloride 115.7 H Carbon Dioxide 13 L BUN 111 H Creatinine 3.8 H Glucose 194 H POC Glucose 188 H Lactic Acid Calcium 7.3 L D Ionized Calcium Phosphorus Magnesium Direct Bilirubin AST ALT Alkaline Phosphatase Lactate Dehydrogenase Troponin T C-Reactive Protein 3.20 H Total Protein Albumin Prealbumin Triglycerides Cholesterol LDL Cholesterol Direct HDL Cholesterol 25-OH Vitamin D Total PTH Intact Urine pH Urine WBC (Auto) Urine Creatinine Urine Total Protein Fluid Total Protein Vancomycin Trough Rheumatoid Factor Complement C4 Miscellaneous Test Crossmatch 09/23/16 09/23/16 09/23/16 11:37 12:29 18:01 WBC RBC Hgb Hct MCV MCH MCHC RDW Plt Count Lymph % (Auto) [place] % (Auto) Lymph # [place] # Baso # Seg Neutrophils % Seg Neuts % (Manual) Lymphocytes % (Manual) Monocytes % (Manual) Eosinophils % (Manual) Basophils % (Manual) Nucleated RBC % Seg Neutrophils # Seg Neutrophils # Man Lymphocytes # (Manual) Monocytes # (Manual) Eosinophils # (Manual) Basophils # (Manual) PT INR Fibrinogen dRVVT Confirm Interp Factor V Activity POC ABG pH POC ABG pCO2 18.9 L POC ABG pO2 143 H ABG pO2 ABG HCO3 ABG Base Excess ABG Hemoglobin Oxyhemoglobin Sodium Potassium Chloride Carbon Dioxide BUN Creatinine Glucose POC Glucose 153 H 108 H Lactic Acid Calcium Ionized Calcium Phosphorus Magnesium Direct Bilirubin AST ALT Alkaline Phosphatase Lactate Dehydrogenase Troponin T C-Reactive Protein Total Protein Albumin Prealbumin Triglycerides Cholesterol LDL Cholesterol Direct HDL Cholesterol 25-OH Vitamin D Total PTH Intact Urine pH Urine WBC (Auto) Urine Creatinine Urine Total Protein Fluid Total Protein Vancomycin Trough Rheumatoid Factor Complement C4 Miscellaneous Test Crossmatch 09/23/16 09/23/16 09/24/16 21:19 23:43 05:16 WBC RBC Hgb Hct MCV MCH MCHC RDW Plt Count Lymph % (Auto) [place] % (Auto) Lymph # [place] # Baso # Seg Neutrophils % Seg Neuts % (Manual) Lymphocytes % (Manual) Monocytes % (Manual) Eosinophils % (Manual) Basophils % (Manual) Nucleated RBC % Seg Neutrophils # Seg Neutrophils # Man Lymphocytes # (Manual) Monocytes # (Manual) Eosinophils # (Manual) Basophils # (Manual) PT INR Fibrinogen dRVVT Confirm Interp Factor V Activity POC ABG pH POC ABG pCO2 17.3 L POC ABG pO2 112 H ABG pO2 ABG HCO3 ABG Base Excess ABG Hemoglobin Oxyhemoglobin Sodium Potassium Chloride Carbon Dioxide BUN Creatinine Glucose POC Glucose 143 H 164 H Lactic Acid Calcium Ionized Calcium Phosphorus Magnesium Direct Bilirubin AST ALT Alkaline Phosphatase Lactate Dehydrogenase Troponin T C-Reactive Protein Total Protein Albumin Prealbumin Triglycerides Cholesterol LDL Cholesterol Direct HDL Cholesterol 25-OH Vitamin D Total PTH Intact Urine pH Urine WBC (Auto) Urine Creatinine Urine Total Protein Fluid Total Protein Vancomycin Trough Rheumatoid Factor Complement C4 Miscellaneous Test Crossmatch 09/24/16 09/24/16 09/24/16 05:21 11:58 17:06 WBC RBC Hgb Hct MCV MCH MCHC RDW Plt Count Lymph % (Auto) [place] % (Auto) Lymph # [place] # Baso # Seg Neutrophils % Seg Neuts % (Manual) Lymphocytes % (Manual) Monocytes % (Manual) Eosinophils % (Manual) Basophils % (Manual) Nucleated RBC % Seg Neutrophils # Seg Neutrophils # Man Lymphocytes # (Manual) Monocytes # (Manual) Eosinophils # (Manual) Basophils # (Manual) PT INR Fibrinogen dRVVT Confirm Interp Factor V Activity POC ABG pH POC ABG pCO2 POC ABG pO2 ABG pO2 ABG HCO3 ABG Base Excess ABG Hemoglobin Oxyhemoglobin Sodium Potassium Chloride Carbon Dioxide 10 L BUN 103 H Creatinine 4.3 H Glucose 163 H POC Glucose 173 H 167 H Lactic Acid Calcium 6.5 L Ionized Calcium Phosphorus Magnesium Direct Bilirubin AST ALT Alkaline Phosphatase Lactate Dehydrogenase Troponin T C-Reactive Protein Total Protein Albumin Prealbumin Triglycerides Cholesterol LDL Cholesterol Direct HDL Cholesterol 25-OH Vitamin D Total PTH Intact Urine pH Urine WBC (Auto) Urine Creatinine Urine Total Protein Fluid Total Protein Vancomycin Trough Rheumatoid Factor Complement C4 Miscellaneous Test Crossmatch 09/24/16 09/24/16 09/24/16 20:15 21:02 23:48 WBC RBC Hgb Hct MCV MCH MCHC RDW Plt Count Lymph % (Auto) [place] % (Auto) Lymph # [place] # Baso # Seg Neutrophils % Seg Neuts % (Manual) Lymphocytes % (Manual) Monocytes % (Manual) Eosinophils % (Manual) Basophils % (Manual) Nucleated RBC % Seg Neutrophils # Seg Neutrophils # Man Lymphocytes # (Manual) Monocytes # (Manual) Eosinophils # (Manual) Basophils # (Manual) PT INR Fibrinogen dRVVT Confirm Interp Factor V Activity POC ABG pH 7.288 L POC ABG pCO2 30.2 L 21.5 L POC ABG pO2 32 L 39 L ABG pO2 ABG HCO3 ABG Base Excess ABG Hemoglobin Oxyhemoglobin Sodium Potassium Chloride Carbon Dioxide BUN Creatinine Glucose POC Glucose 109 H Lactic Acid Calcium Ionized Calcium Phosphorus Magnesium Direct Bilirubin AST ALT Alkaline Phosphatase Lactate Dehydrogenase Troponin T C-Reactive Protein Total Protein Albumin Prealbumin Triglycerides Cholesterol LDL Cholesterol Direct HDL Cholesterol 25-OH Vitamin D Total PTH Intact Urine pH Urine WBC (Auto) Urine Creatinine Urine Total Protein Fluid Total Protein Vancomycin Trough Rheumatoid Factor Complement C4 Miscellaneous Test Crossmatch 09/25/16 09/25/16 09/25/16 04:20 04:20 04:20 WBC RBC 2.58 L Hgb 7.0 L Hct 21.0 L MCV MCH 27 L MCHC RDW 23.8 H Plt Count Lymph % (Auto) [place] % (Auto) Lymph # [place] # Baso # Seg Neutrophils % Seg Neuts % (Manual) Lymphocytes % (Manual) 12.0 L Monocytes % (Manual) Eosinophils % (Manual) 7.0 H Basophils % (Manual) 2.0 H Nucleated RBC % Seg Neutrophils # Seg Neutrophils # Man Lymphocytes # (Manual) 0.9 L Monocytes # (Manual) Eosinophils # (Manual) 0.5 H Basophils # (Manual) PT INR Fibrinogen dRVVT Confirm Interp Factor V Activity POC ABG pH POC ABG pCO2 POC ABG pO2 ABG pO2 ABG HCO3 ABG Base Excess ABG Hemoglobin Oxyhemoglobin Sodium Potassium Chloride Carbon Dioxide 15 L BUN 72 H Creatinine 3.8 H Glucose POC Glucose Lactic Acid Calcium 6.0 L Ionized Calcium Phosphorus 4.60 H Magnesium 1.60 L Direct Bilirubin AST ALT Alkaline Phosphatase Lactate Dehydrogenase Troponin T C-Reactive Protein Total Protein Albumin Prealbumin Triglycerides Cholesterol LDL Cholesterol Direct HDL Cholesterol 25-OH Vitamin D Total PTH Intact Urine pH Urine WBC (Auto) Urine Creatinine Urine Total Protein Fluid Total Protein Vancomycin Trough Rheumatoid Factor Complement C4 Miscellaneous Test Crossmatch 09/25/16 09/25/16 09/25/16 04:57 08:02 10:30 WBC RBC Hgb Hct MCV MCH MCHC RDW Plt Count Lymph % (Auto) [place] % (Auto) Lymph # [place] # Baso # Seg Neutrophils % Seg Neuts % (Manual) Lymphocytes % (Manual) Monocytes % (Manual) Eosinophils % (Manual) Basophils % (Manual) Nucleated RBC % Seg Neutrophils # Seg Neutrophils # Man Lymphocytes # (Manual) Monocytes # (Manual) Eosinophils # (Manual) Basophils # (Manual) PT INR Fibrinogen dRVVT Confirm Interp Factor V Activity POC ABG pH POC ABG pCO2 24.7 L POC ABG pO2 152 H ABG pO2 ABG HCO3 ABG Base Excess ABG Hemoglobin Oxyhemoglobin Sodium Potassium Chloride Carbon Dioxide BUN Creatinine Glucose POC Glucose 113 H Lactic Acid Calcium Ionized Calcium Phosphorus Magnesium Direct Bilirubin AST ALT Alkaline Phosphatase Lactate Dehydrogenase Troponin T C-Reactive Protein Total Protein Albumin Prealbumin Triglycerides Cholesterol LDL Cholesterol Direct HDL Cholesterol 25-OH Vitamin D Total PTH Intact Urine pH Urine WBC (Auto) Urine Creatinine Urine Total Protein Fluid Total Protein Vancomycin Trough Rheumatoid Factor Complement C4 Miscellaneous Test Crossmatch See Detail 09/25/16 09/25/16 09/25/16 12:05 17:44 23:47 WBC RBC Hgb Hct MCV MCH MCHC RDW Plt Count Lymph % (Auto) [place] % (Auto) Lymph # [place] # Baso # Seg Neutrophils % Seg Neuts % (Manual) Lymphocytes % (Manual) Monocytes % (Manual) Eosinophils % (Manual) Basophils % (Manual) Nucleated RBC % Seg Neutrophils # Seg Neutrophils # Man Lymphocytes # (Manual) Monocytes # (Manual) Eosinophils # (Manual) Basophils # (Manual) PT INR Fibrinogen dRVVT Confirm Interp Factor V Activity POC ABG pH POC ABG pCO2 POC ABG pO2 ABG pO2 ABG HCO3 ABG Base Excess ABG Hemoglobin Oxyhemoglobin Sodium Potassium Chloride Carbon Dioxide BUN Creatinine Glucose POC Glucose 117 H 119 H 150 H Lactic Acid Calcium Ionized Calcium Phosphorus Magnesium Direct Bilirubin AST ALT Alkaline Phosphatase Lactate Dehydrogenase Troponin T C-Reactive Protein Total Protein Albumin Prealbumin Triglycerides Cholesterol LDL Cholesterol Direct HDL Cholesterol 25-OH Vitamin D Total PTH Intact Urine pH Urine WBC (Auto) Urine Creatinine Urine Total Protein Fluid Total Protein Vancomycin Trough Rheumatoid Factor Complement C4 Miscellaneous Test Crossmatch 09/26/16 09/26/16 09/26/16 04:25 04:25 04:25 WBC RBC 2.65 L Hgb 7.4 L Hct 21.6 L MCV MCH MCHC RDW 22.5 H Plt Count Lymph % (Auto) [place] % (Auto) Lymph # [place] # Baso # Seg Neutrophils % Seg Neuts % (Manual) Lymphocytes % (Manual) 6.0 L Monocytes % (Manual) Eosinophils % (Manual) 11.0 H Basophils % (Manual) Nucleated RBC % Seg Neutrophils # Seg Neutrophils # Man Lymphocytes # (Manual) 0.4 L Monocytes # (Manual) Eosinophils # (Manual) 0.6 H Basophils # (Manual) PT INR Fibrinogen dRVVT Confirm Interp Factor V Activity POC ABG pH POC ABG pCO2 POC ABG pO2 ABG pO2 ABG HCO3 ABG Base Excess ABG Hemoglobin Oxyhemoglobin Sodium Potassium Chloride 97.0 L Carbon Dioxide 19 L BUN 43 H Creatinine 2.6 H Glucose 130 H POC Glucose Lactic Acid 4.40 H* Calcium 6.7 L Ionized Calcium Phosphorus Magnesium Direct Bilirubin AST ALT Alkaline Phosphatase Lactate Dehydrogenase Troponin T C-Reactive Protein Total Protein Albumin Prealbumin Triglycerides Cholesterol LDL Cholesterol Direct HDL Cholesterol 25-OH Vitamin D Total PTH Intact Urine pH Urine WBC (Auto) Urine Creatinine Urine Total Protein Fluid Total Protein Vancomycin Trough Rheumatoid Factor Complement C4 Miscellaneous Test Crossmatch 09/26/16 09/26/16 09/26/16 05:20 11:44 12:12 WBC RBC Hgb Hct MCV MCH MCHC RDW Plt Count Lymph % (Auto) [place] % (Auto) Lymph # [place] # Baso # Seg Neutrophils % Seg Neuts % (Manual) Lymphocytes % (Manual) Monocytes % (Manual) Eosinophils % (Manual) Basophils % (Manual) Nucleated RBC % Seg Neutrophils # Seg Neutrophils # Man Lymphocytes # (Manual) Monocytes # (Manual) Eosinophils # (Manual) Basophils # (Manual) PT INR Fibrinogen dRVVT Confirm Interp Factor V Activity POC ABG pH POC ABG pCO2 27.0 L POC ABG pO2 69 L ABG pO2 ABG HCO3 ABG Base Excess ABG Hemoglobin Oxyhemoglobin Sodium Potassium Chloride Carbon Dioxide BUN Creatinine Glucose POC Glucose 121 H 128 H Lactic Acid Calcium Ionized Calcium Phosphorus Magnesium Direct Bilirubin AST ALT Alkaline Phosphatase Lactate Dehydrogenase Troponin T C-Reactive Protein Total Protein Albumin Prealbumin Triglycerides Cholesterol LDL Cholesterol Direct HDL Cholesterol 25-OH Vitamin D Total PTH Intact Urine pH Urine WBC (Auto) Urine Creatinine Urine Total Protein Fluid Total Protein Vancomycin Trough Rheumatoid Factor Complement C4 Miscellaneous Test Crossmatch 09/26/16 09/26/16 09/27/16 18:31 23:40 08:20 WBC RBC Hgb Hct MCV MCH MCHC RDW Plt Count Lymph % (Auto) [place] % (Auto) Lymph # [place] # Baso # Seg Neutrophils % Seg Neuts % (Manual) Lymphocytes % (Manual) Monocytes % (Manual) Eosinophils % (Manual) Basophils % (Manual) Nucleated RBC % Seg Neutrophils # Seg Neutrophils # Man Lymphocytes # (Manual) Monocytes # (Manual) Eosinophils # (Manual) Basophils # (Manual) PT INR Fibrinogen dRVVT Confirm Interp Factor V Activity POC ABG pH POC ABG pCO2 POC ABG pO2 ABG pO2 ABG HCO3 ABG Base Excess ABG Hemoglobin Oxyhemoglobin Sodium Potassium Chloride Carbon Dioxide BUN Creatinine Glucose POC Glucose 120 H 133 H Lactic Acid 4.10 H* Calcium Ionized Calcium Phosphorus Magnesium Direct Bilirubin AST ALT Alkaline Phosphatase Lactate Dehydrogenase Troponin T C-Reactive Protein Total Protein Albumin Prealbumin Triglycerides Cholesterol LDL Cholesterol Direct HDL Cholesterol 25-OH Vitamin D Total PTH Intact Urine pH Urine WBC (Auto) Urine Creatinine Urine Total Protein Fluid Total Protein Vancomycin Trough Rheumatoid Factor Complement C4 Miscellaneous Test Crossmatch 09/27/16 09/27/16 09/27/16 11:23 15:00 18:15 WBC RBC Hgb Hct MCV MCH MCHC RDW Plt Count Lymph % (Auto) [place] % (Auto) Lymph # [place] # Baso # Seg Neutrophils % Seg Neuts % (Manual) Lymphocytes % (Manual) Monocytes % (Manual) Eosinophils % (Manual) Basophils % (Manual) Nucleated RBC % Seg Neutrophils # Seg Neutrophils # Man Lymphocytes # (Manual) Monocytes # (Manual) Eosinophils # (Manual) Basophils # (Manual) PT INR Fibrinogen dRVVT Confirm Interp Factor V Activity POC ABG pH 7.459 H POC ABG pCO2 27.1 L POC ABG pO2 140 H ABG pO2 ABG HCO3 ABG Base Excess ABG Hemoglobin Oxyhemoglobin Sodium Potassium Chloride Carbon Dioxide BUN Creatinine Glucose POC Glucose 114 H 127 H Lactic Acid Calcium Ionized Calcium Phosphorus Magnesium Direct Bilirubin AST ALT Alkaline Phosphatase Lactate Dehydrogenase Troponin T C-Reactive Protein Total Protein Albumin Prealbumin Triglycerides Cholesterol LDL Cholesterol Direct HDL Cholesterol 25-OH Vitamin D Total PTH Intact Urine pH Urine WBC (Auto) Urine Creatinine Urine Total Protein Fluid Total Protein Vancomycin Trough Rheumatoid Factor Complement C4 Miscellaneous Test Crossmatch 09/27/16 09/27/16 09/28/16 Unknown Unknown 03:45 WBC RBC 2.49 L Hgb 6.8 L Hct 20.7 L MCV MCH 27 L MCHC RDW 22.1 H Plt Count Lymph % (Auto) [place] % (Auto) Lymph # [place] # Baso # Seg Neutrophils % Seg Neuts % (Manual) 32.0 L Lymphocytes % (Manual) 12.0 L Monocytes % (Manual) 11.0 H Eosinophils % (Manual) 10.0 H Basophils % (Manual) Nucleated RBC % Seg Neutrophils # Seg Neutrophils # Man Lymphocytes # (Manual) 1.0 L Monocytes # (Manual) 0.9 H Eosinophils # (Manual) 0.8 H Basophils # (Manual) PT INR Fibrinogen dRVVT Confirm Interp Factor V Activity POC ABG pH POC ABG pCO2 POC ABG pO2 ABG pO2 ABG HCO3 ABG Base Excess ABG Hemoglobin Oxyhemoglobin Sodium 135 L 135 L Potassium 3.5 L Chloride 93.6 L 94.4 L Carbon Dioxide 17 L 21 L BUN 45 H 28 H Creatinine 3.3 H 2.5 H Glucose 106 H POC Glucose Lactic Acid Calcium 7.3 L 7.1 L Ionized Calcium Phosphorus Magnesium Direct Bilirubin AST ALT Alkaline Phosphatase Lactate Dehydrogenase Troponin T C-Reactive Protein Total Protein Albumin Prealbumin Triglycerides Cholesterol LDL Cholesterol Direct HDL Cholesterol 25-OH Vitamin D Total PTH Intact Urine pH Urine WBC (Auto) Urine Creatinine Urine Total Protein Fluid Total Protein Vancomycin Trough Rheumatoid Factor Complement C4 Miscellaneous Test Crossmatch 09/28/16 09/28/16 09/28/16 03:45 07:25 11:58 WBC 13.3 H RBC 3.01 L Hgb 8.4 L Hct 25.0 L MCV MCH MCHC RDW 20.5 H Plt Count 128 L Lymph % (Auto) [place] % (Auto) Lymph # [place] # Baso # Seg Neutrophils % Seg Neuts % (Manual) Lymphocytes % (Manual) 7.0 L Monocytes % (Manual) Eosinophils % (Manual) 6.0 H Basophils % (Manual) Nucleated RBC % Seg Neutrophils # Seg Neutrophils # Man Lymphocytes # (Manual) 0.9 L Monocytes # (Manual) Eosinophils # (Manual) 0.8 H Basophils # (Manual) PT INR Fibrinogen dRVVT Confirm Interp Factor V Activity POC ABG pH POC ABG pCO2 POC ABG pO2 ABG pO2 ABG HCO3 ABG Base Excess ABG Hemoglobin Oxyhemoglobin Sodium Potassium Chloride Carbon Dioxide BUN Creatinine Glucose POC Glucose 121 H Lactic Acid 4.50 H* Calcium Ionized Calcium Phosphorus Magnesium Direct Bilirubin AST ALT Alkaline Phosphatase Lactate Dehydrogenase Troponin T C-Reactive Protein Total Protein Albumin Prealbumin Triglycerides Cholesterol LDL Cholesterol Direct HDL Cholesterol 25-OH Vitamin D Total PTH Intact Urine pH Urine WBC (Auto) Urine Creatinine Urine Total Protein Fluid Total Protein Vancomycin Trough Rheumatoid Factor Complement C4 Miscellaneous Test Crossmatch 09/29/16 09/29/16 09/29/16 06:45 06:45 06:45 WBC 14.9 H RBC 2.74 L Hgb 7.6 L Hct 23.2 L MCV MCH MCHC RDW 20.5 H Plt Count 81 L Lymph % (Auto) [place] % (Auto) Lymph # [place] # Baso # Seg Neutrophils % Seg Neuts % (Manual) 81.0 H Lymphocytes % (Manual) 4.0 L Monocytes % (Manual) Eosinophils % (Manual) Basophils % (Manual) Nucleated RBC % Seg Neutrophils # Seg Neutrophils # Man 12.1 H Lymphocytes # (Manual) 0.6 L Monocytes # (Manual) Eosinophils # (Manual) Basophils # (Manual) PT INR Fibrinogen dRVVT Confirm Interp Factor V Activity POC ABG pH POC ABG pCO2 POC ABG pO2 ABG pO2 ABG HCO3 ABG Base Excess ABG Hemoglobin Oxyhemoglobin Sodium 133 L Potassium 3.4 L Chloride 92.5 L Carbon Dioxide 21 L BUN 33 H Creatinine 3.0 H Glucose POC Glucose Lactic Acid Calcium 6.6 L Ionized Calcium Phosphorus Magnesium 1.40 L Direct Bilirubin 0.9 H AST ALT Alkaline Phosphatase Lactate Dehydrogenase Troponin T C-Reactive Protein Total Protein 4.3 L Albumin 1.3 L Prealbumin Triglycerides Cholesterol LDL Cholesterol Direct HDL Cholesterol 25-OH Vitamin D Total PTH Intact Urine pH Urine WBC (Auto) Urine Creatinine Urine Total Protein Fluid Total Protein Vancomycin Trough Rheumatoid Factor Complement C4 Miscellaneous Test Crossmatch 09/29/16 09/29/16 09/30/16 17:52 20:12 00:07 WBC RBC Hgb Hct MCV MCH MCHC RDW Plt Count Lymph % (Auto) [place] % (Auto) Lymph # [place] # Baso # Seg Neutrophils % Seg Neuts % (Manual) Lymphocytes % (Manual) Monocytes % (Manual) Eosinophils % (Manual) Basophils % (Manual) Nucleated RBC % Seg Neutrophils # Seg Neutrophils # Man Lymphocytes # (Manual) Monocytes # (Manual) Eosinophils # (Manual) Basophils # (Manual) PT INR Fibrinogen dRVVT Confirm Interp Factor V Activity POC ABG pH POC ABG pCO2 POC ABG pO2 ABG pO2 ABG HCO3 ABG Base Excess ABG Hemoglobin Oxyhemoglobin Sodium Potassium Chloride Carbon Dioxide BUN Creatinine Glucose POC Glucose 50 L 51 L Lactic Acid Calcium Ionized Calcium Phosphorus Magnesium Direct Bilirubin AST ALT Alkaline Phosphatase Lactate Dehydrogenase Troponin T 0.204 H* C-Reactive Protein Total Protein Albumin Prealbumin Triglycerides Cholesterol 31 L LDL Cholesterol Direct 4 L HDL Cholesterol 3 L 25-OH Vitamin D Total PTH Intact Urine pH Urine WBC (Auto) Urine Creatinine Urine Total Protein Fluid Total Protein Vancomycin Trough Rheumatoid Factor Complement C4 Miscellaneous Test Crossmatch 09/30/16 09/30/16 09/30/16 01:30 05:15 06:10 WBC RBC Hgb Hct MCV MCH MCHC RDW Plt Count Lymph % (Auto) [place] % (Auto) Lymph # [place] # Baso # Seg Neutrophils % Seg Neuts % (Manual) Lymphocytes % (Manual) Monocytes % (Manual) Eosinophils % (Manual) Basophils % (Manual) Nucleated RBC % Seg Neutrophils # Seg Neutrophils # Man Lymphocytes # (Manual) Monocytes # (Manual) Eosinophils # (Manual) Basophils # (Manual) PT INR Fibrinogen dRVVT Confirm Interp Factor V Activity POC ABG pH POC ABG pCO2 POC ABG pO2 ABG pO2 ABG HCO3 ABG Base Excess ABG Hemoglobin Oxyhemoglobin Sodium 133 L Potassium 3.2 L Chloride 93.2 L Carbon Dioxide 19 L BUN 36 H Creatinine 3.2 H Glucose 104 H POC Glucose 167 H 146 H Lactic Acid Calcium 6.4 L Ionized Calcium Phosphorus Magnesium 1.60 L Direct Bilirubin AST ALT Alkaline Phosphatase Lactate Dehydrogenase Troponin T C-Reactive Protein Total Protein Albumin Prealbumin Triglycerides Cholesterol LDL Cholesterol Direct HDL Cholesterol 25-OH Vitamin D Total PTH Intact Urine pH Urine WBC (Auto) Urine Creatinine Urine Total Protein Fluid Total Protein Vancomycin Trough Rheumatoid Factor Complement C4 Miscellaneous Test Crossmatch 09/30/16 09/30/16 09/30/16 11:26 13:39 18:38 WBC RBC Hgb Hct MCV MCH MCHC RDW Plt Count Lymph % (Auto) [place] % (Auto) Lymph # [place] # Baso # Seg Neutrophils % Seg Neuts % (Manual) Lymphocytes % (Manual) Monocytes % (Manual) Eosinophils % (Manual) Basophils % (Manual) Nucleated RBC % Seg Neutrophils # Seg Neutrophils # Man Lymphocytes # (Manual) Monocytes # (Manual) Eosinophils # (Manual) Basophils # (Manual) PT INR Fibrinogen dRVVT Confirm Interp Factor V Activity POC ABG pH 7.479 H POC ABG pCO2 29.8 L POC ABG pO2 117 H ABG pO2 ABG HCO3 ABG Base Excess ABG Hemoglobin Oxyhemoglobin Sodium Potassium Chloride Carbon Dioxide BUN Creatinine Glucose POC Glucose 140 H 122 H Lactic Acid Calcium Ionized Calcium Phosphorus Magnesium Direct Bilirubin AST ALT Alkaline Phosphatase Lactate Dehydrogenase Troponin T C-Reactive Protein Total Protein Albumin Prealbumin Triglycerides Cholesterol LDL Cholesterol Direct HDL Cholesterol 25-OH Vitamin D Total PTH Intact Urine pH Urine WBC (Auto) Urine Creatinine Urine Total Protein Fluid Total Protein Vancomycin Trough Rheumatoid Factor Complement C4 Miscellaneous Test Crossmatch 10/01/16 10/01/16 10/01/16 06:00 06:00 12:37 WBC 12.6 H RBC 2.75 L Hgb 7.3 L Hct 23.3 L MCV MCH 27 L MCHC RDW 20.6 H Plt Count 72 L Lymph % (Auto) [place] % (Auto) Lymph # [place] # Baso # Seg Neutrophils % Seg Neuts % (Manual) 31.0 L Lymphocytes % (Manual) 8.0 L Monocytes % (Manual) Eosinophils % (Manual) Basophils % (Manual) Nucleated RBC % 3.0 H Seg Neutrophils # Seg Neutrophils # Man Lymphocytes # (Manual) 1.0 L Monocytes # (Manual) Eosinophils # (Manual) Basophils # (Manual) PT INR Fibrinogen dRVVT Confirm Interp Factor V Activity POC ABG pH POC ABG pCO2 POC ABG pO2 ABG pO2 ABG HCO3 ABG Base Excess ABG Hemoglobin Oxyhemoglobin Sodium 127 L Potassium Chloride 86.8 L Carbon Dioxide 20 L BUN 42 H Creatinine 3.5 H Glucose POC Glucose 65 L Lactic Acid Calcium 7.0 L Ionized Calcium Phosphorus Magnesium Direct Bilirubin AST ALT Alkaline Phosphatase Lactate Dehydrogenase Troponin T C-Reactive Protein Total Protein Albumin Prealbumin Triglycerides Cholesterol LDL Cholesterol Direct HDL Cholesterol 25-OH Vitamin D Total PTH Intact Urine pH Urine WBC (Auto) Urine Creatinine Urine Total Protein Fluid Total Protein Vancomycin Trough Rheumatoid Factor Complement C4 Miscellaneous Test Crossmatch 10/01/16 10/01/16 10/02/16 17:39 23:32 00:59 WBC RBC Hgb Hct MCV MCH MCHC RDW Plt Count Lymph % (Auto) [place] % (Auto) Lymph # [place] # Baso # Seg Neutrophils % Seg Neuts % (Manual) Lymphocytes % (Manual) Monocytes % (Manual) Eosinophils % (Manual) Basophils % (Manual) Nucleated RBC % Seg Neutrophils # Seg Neutrophils # Man Lymphocytes # (Manual) Monocytes # (Manual) Eosinophils # (Manual) Basophils # (Manual) PT INR Fibrinogen dRVVT Confirm Interp Factor V Activity POC ABG pH POC ABG pCO2 POC ABG pO2 ABG pO2 ABG HCO3 ABG Base Excess ABG Hemoglobin Oxyhemoglobin Sodium Potassium Chloride Carbon Dioxide BUN Creatinine Glucose POC Glucose 107 H 52 L 145 H Lactic Acid Calcium Ionized Calcium Phosphorus Magnesium Direct Bilirubin AST ALT Alkaline Phosphatase Lactate Dehydrogenase Troponin T C-Reactive Protein Total Protein Albumin Prealbumin Triglycerides Cholesterol LDL Cholesterol Direct HDL Cholesterol 25-OH Vitamin D Total PTH Intact Urine pH Urine WBC (Auto) Urine Creatinine Urine Total Protein Fluid Total Protein Vancomycin Trough Rheumatoid Factor Complement C4 Miscellaneous Test Crossmatch 10/02/16 10/02/16 10/02/16 10:30 10:50 10:50 WBC 14.7 H RBC 2.76 L Hgb 7.4 L Hct 23.6 L MCV MCH 27 L MCHC RDW 20.2 H Plt Count 79 L Lymph % (Auto) [place] % (Auto) Lymph # [place] # Baso # Seg Neutrophils % Seg Neuts % (Manual) 86.0 H Lymphocytes % (Manual) 6.0 L Monocytes % (Manual) Eosinophils % (Manual) Basophils % (Manual) Nucleated RBC % Seg Neutrophils # Seg Neutrophils # Man 12.6 H Lymphocytes # (Manual) 0.9 L Monocytes # (Manual) Eosinophils # (Manual) Basophils # (Manual) PT INR Fibrinogen dRVVT Confirm Interp Factor V Activity POC ABG pH 7.486 H POC ABG pCO2 30.1 L POC ABG pO2 108 H ABG pO2 ABG HCO3 ABG Base Excess ABG Hemoglobin Oxyhemoglobin Sodium 131 L Potassium 3.4 L Chloride 89.9 L Carbon Dioxide BUN 26 H Creatinine 2.6 H Glucose POC Glucose Lactic Acid Calcium 7.0 L Ionized Calcium Phosphorus Magnesium Direct Bilirubin AST ALT Alkaline Phosphatase Lactate Dehydrogenase Troponin T C-Reactive Protein Total Protein Albumin Prealbumin Triglycerides Cholesterol LDL Cholesterol Direct HDL Cholesterol 25-OH Vitamin D Total PTH Intact Urine pH Urine WBC (Auto) Urine Creatinine Urine Total Protein Fluid Total Protein Vancomycin Trough Rheumatoid Factor Complement C4 Miscellaneous Test Crossmatch 10/02/16 10/03/16 10/03/16 23:45 00:45 05:10 WBC 12.9 H RBC 2.77 L Hgb 7.6 L Hct 23.7 L MCV MCH 27 L MCHC RDW 19.7 H Plt Count 89 L Lymph % (Auto) [place] % (Auto) Lymph # [place] # Baso # Seg Neutrophils % Seg Neuts % (Manual) Lymphocytes % (Manual) 8.0 L Monocytes % (Manual) Eosinophils % (Manual) Basophils % (Manual) Nucleated RBC % Seg Neutrophils # 11.9 H Seg Neutrophils # Man Lymphocytes # (Manual) 1.0 L Monocytes # (Manual) Eosinophils # (Manual) Basophils # (Manual) PT INR Fibrinogen dRVVT Confirm Interp Factor V Activity POC ABG pH POC ABG pCO2 POC ABG pO2 ABG pO2 ABG HCO3 ABG Base Excess ABG Hemoglobin Oxyhemoglobin Sodium Potassium Chloride Carbon Dioxide BUN Creatinine Glucose POC Glucose 55 L 199 H Lactic Acid Calcium Ionized Calcium Phosphorus Magnesium Direct Bilirubin AST ALT Alkaline Phosphatase Lactate Dehydrogenase Troponin T C-Reactive Protein Total Protein Albumin Prealbumin Triglycerides Cholesterol LDL Cholesterol Direct HDL Cholesterol 25-OH Vitamin D Total PTH Intact Urine pH Urine WBC (Auto) Urine Creatinine Urine Total Protein Fluid Total Protein Vancomycin Trough Rheumatoid Factor Complement C4 Miscellaneous Test Crossmatch 10/03/16 10/03/16 10/03/16 05:10 12:14 13:18 WBC RBC Hgb Hct MCV MCH MCHC RDW Plt Count Lymph % (Auto) [place] % (Auto) Lymph # [place] # Baso # Seg Neutrophils % Seg Neuts % (Manual) Lymphocytes % (Manual) Monocytes % (Manual) Eosinophils % (Manual) Basophils % (Manual) Nucleated RBC % Seg Neutrophils # Seg Neutrophils # Man Lymphocytes # (Manual) Monocytes # (Manual) Eosinophils # (Manual) Basophils # (Manual) PT INR Fibrinogen dRVVT Confirm Interp Factor V Activity POC ABG pH POC ABG pCO2 POC ABG pO2 ABG pO2 ABG HCO3 ABG Base Excess ABG Hemoglobin Oxyhemoglobin Sodium 129 L Potassium 3.3 L Chloride 88.8 L Carbon Dioxide 20 L BUN 29 H Creatinine 2.8 H Glucose POC Glucose 68 L 127 H Lactic Acid Calcium 7.2 L Ionized Calcium Phosphorus Magnesium Direct Bilirubin AST ALT Alkaline Phosphatase Lactate Dehydrogenase Troponin T C-Reactive Protein Total Protein Albumin Prealbumin Triglycerides Cholesterol LDL Cholesterol Direct HDL Cholesterol 25-OH Vitamin D Total PTH Intact Urine pH Urine WBC (Auto) Urine Creatinine Urine Total Protein Fluid Total Protein Vancomycin Trough Rheumatoid Factor Complement C4 Miscellaneous Test Crossmatch 10/03/16 10/03/16 10/03/16 14:42 18:21 19:09 WBC RBC Hgb Hct MCV MCH MCHC RDW Plt Count Lymph % (Auto) [place] % (Auto) Lymph # [place] # Baso # Seg Neutrophils % Seg Neuts % (Manual) Lymphocytes % (Manual) Monocytes % (Manual) Eosinophils % (Manual) Basophils % (Manual) Nucleated RBC % Seg Neutrophils # Seg Neutrophils # Man Lymphocytes # (Manual) Monocytes # (Manual) Eosinophils # (Manual) Basophils # (Manual) PT INR Fibrinogen dRVVT Confirm Interp Factor V Activity POC ABG pH 7.499 H POC ABG pCO2 28.4 L POC ABG pO2 44 L ABG pO2 ABG HCO3 ABG Base Excess ABG Hemoglobin Oxyhemoglobin Sodium Potassium Chloride Carbon Dioxide BUN Creatinine Glucose POC Glucose 64 L 205 H Lactic Acid Calcium Ionized Calcium Phosphorus Magnesium Direct Bilirubin AST ALT Alkaline Phosphatase Lactate Dehydrogenase Troponin T C-Reactive Protein Total Protein Albumin Prealbumin Triglycerides Cholesterol LDL Cholesterol Direct HDL Cholesterol 25-OH Vitamin D Total PTH Intact Urine pH Urine WBC (Auto) Urine Creatinine Urine Total Protein Fluid Total Protein Vancomycin Trough Rheumatoid Factor Complement C4 Miscellaneous Test Crossmatch 10/03/16 10/04/16 10/04/16 23:33 04:18 06:30 WBC RBC 2.54 L Hgb 7.1 L Hct 21.7 L MCV MCH MCHC RDW 19.5 H Plt Count 76 L Lymph % (Auto) [place] % (Auto) Lymph # [place] # Baso # Seg Neutrophils % Seg Neuts % (Manual) 88.0 H Lymphocytes % (Manual) 6.0 L Monocytes % (Manual) Eosinophils % (Manual) Basophils % (Manual) Nucleated RBC % Seg Neutrophils # Seg Neutrophils # Man 8.8 H Lymphocytes # (Manual) 0.6 L Monocytes # (Manual) Eosinophils # (Manual) Basophils # (Manual) PT INR Fibrinogen dRVVT Confirm Interp Factor V Activity POC ABG pH 7.461 H POC ABG pCO2 33.6 L POC ABG pO2 211 H ABG pO2 ABG HCO3 ABG Base Excess ABG Hemoglobin Oxyhemoglobin Sodium Potassium Chloride Carbon Dioxide BUN Creatinine Glucose POC Glucose 136 H Lactic Acid Calcium Ionized Calcium Phosphorus Magnesium Direct Bilirubin AST ALT Alkaline Phosphatase Lactate Dehydrogenase Troponin T C-Reactive Protein Total Protein Albumin Prealbumin Triglycerides Cholesterol LDL Cholesterol Direct HDL Cholesterol 25-OH Vitamin D Total PTH Intact Urine pH Urine WBC (Auto) Urine Creatinine Urine Total Protein Fluid Total Protein Vancomycin Trough Rheumatoid Factor Complement C4 Miscellaneous Test Crossmatch 10/04/16 10/04/16 10/04/16 06:30 11:45 17:54 WBC RBC Hgb Hct MCV MCH MCHC RDW Plt Count Lymph % (Auto) [place] % (Auto) Lymph # [place] # Baso # Seg Neutrophils % Seg Neuts % (Manual) Lymphocytes % (Manual) Monocytes % (Manual) Eosinophils % (Manual) Basophils % (Manual) Nucleated RBC % Seg Neutrophils # Seg Neutrophils # Man Lymphocytes # (Manual) Monocytes # (Manual) Eosinophils # (Manual) Basophils # (Manual) PT INR Fibrinogen dRVVT Confirm Interp Factor V Activity POC ABG pH POC ABG pCO2 POC ABG pO2 ABG pO2 ABG HCO3 ABG Base Excess ABG Hemoglobin Oxyhemoglobin Sodium 128 L Potassium Chloride 87.4 L Carbon Dioxide 20 L BUN 34 H Creatinine 2.9 H Glucose 127 H POC Glucose 158 H 160 H Lactic Acid Calcium 7.4 L Ionized Calcium Phosphorus Magnesium Direct Bilirubin AST ALT Alkaline Phosphatase Lactate Dehydrogenase Troponin T C-Reactive Protein Total Protein Albumin Prealbumin Triglycerides Cholesterol LDL Cholesterol Direct HDL Cholesterol 25-OH Vitamin D Total PTH Intact Urine pH Urine WBC (Auto) Urine Creatinine Urine Total Protein Fluid Total Protein Vancomycin Trough Rheumatoid Factor Complement C4 Miscellaneous Test Crossmatch 10/04/16 10/05/16 10/05/16 23:25 04:30 05:00 WBC RBC 2.64 L Hgb 7.5 L Hct 22.6 L MCV MCH MCHC RDW 19.3 H Plt Count 80 L Lymph % (Auto) [place] % (Auto) Lymph # [place] # Baso # Seg Neutrophils % Seg Neuts % (Manual) Lymphocytes % (Manual) 12.0 L Monocytes % (Manual) Eosinophils % (Manual) Basophils % (Manual) Nucleated RBC % Seg Neutrophils # Seg Neutrophils # Man Lymphocytes # (Manual) Monocytes # (Manual) Eosinophils # (Manual) Basophils # (Manual) PT INR Fibrinogen dRVVT Confirm Interp Factor V Activity POC ABG pH 7.475 H POC ABG pCO2 33.3 L POC ABG pO2 140 H ABG pO2 ABG HCO3 ABG Base Excess ABG Hemoglobin Oxyhemoglobin Sodium Potassium Chloride Carbon Dioxide BUN Creatinine Glucose POC Glucose 141 H Lactic Acid Calcium Ionized Calcium Phosphorus Magnesium Direct Bilirubin AST ALT Alkaline Phosphatase Lactate Dehydrogenase Troponin T C-Reactive Protein Total Protein Albumin Prealbumin Triglycerides Cholesterol LDL Cholesterol Direct HDL Cholesterol 25-OH Vitamin D Total PTH Intact Urine pH Urine WBC (Auto) Urine Creatinine Urine Total Protein Fluid Total Protein Vancomycin Trough Rheumatoid Factor Complement C4 Miscellaneous Test Crossmatch 10/05/16 10/05/16 10/05/16 05:00 05:09 12:58 WBC RBC Hgb Hct MCV MCH MCHC RDW Plt Count Lymph % (Auto) [place] % (Auto) Lymph # [place] # Baso # Seg Neutrophils % Seg Neuts % (Manual) Lymphocytes % (Manual) Monocytes % (Manual) Eosinophils % (Manual) Basophils % (Manual) Nucleated RBC % Seg Neutrophils # Seg Neutrophils # Man Lymphocytes # (Manual) Monocytes # (Manual) Eosinophils # (Manual) Basophils # (Manual) PT INR Fibrinogen dRVVT Confirm Interp Factor V Activity POC ABG pH POC ABG pCO2 POC ABG pO2 ABG pO2 ABG HCO3 ABG Base Excess ABG Hemoglobin Oxyhemoglobin Sodium 131 L Potassium Chloride 94.0 L Carbon Dioxide 20 L BUN 22 H Creatinine 2.0 H Glucose 123 H POC Glucose 166 H 179 H Lactic Acid Calcium 7.7 L Ionized Calcium Phosphorus 2.20 L D Magnesium Direct Bilirubin AST ALT Alkaline Phosphatase Lactate Dehydrogenase Troponin T C-Reactive Protein Total Protein Albumin Prealbumin Triglycerides Cholesterol LDL Cholesterol Direct HDL Cholesterol 25-OH Vitamin D Total PTH Intact Urine pH Urine WBC (Auto) Urine Creatinine Urine Total Protein Fluid Total Protein Vancomycin Trough Rheumatoid Factor Complement C4 Miscellaneous Test Crossmatch 10/05/16 10/05/16 10/05/16 15:50 18:53 23:12 WBC RBC Hgb Hct MCV MCH MCHC RDW Plt Count Lymph % (Auto) [place] % (Auto) Lymph # [place] # Baso # Seg Neutrophils % Seg Neuts % (Manual) Lymphocytes % (Manual) Monocytes % (Manual) Eosinophils % (Manual) Basophils % (Manual) Nucleated RBC % Seg Neutrophils # Seg Neutrophils # Man Lymphocytes # (Manual) Monocytes # (Manual) Eosinophils # (Manual) Basophils # (Manual) PT INR Fibrinogen dRVVT Confirm Interp Factor V Activity POC ABG pH POC ABG pCO2 POC ABG pO2 ABG pO2 ABG HCO3 ABG Base Excess ABG Hemoglobin Oxyhemoglobin Sodium Potassium Chloride Carbon Dioxide BUN Creatinine Glucose POC Glucose 150 H 164 H Lactic Acid Calcium Ionized Calcium Phosphorus Magnesium Direct Bilirubin AST ALT Alkaline Phosphatase Lactate Dehydrogenase Troponin T C-Reactive Protein Total Protein Albumin Prealbumin Triglycerides Cholesterol LDL Cholesterol Direct HDL Cholesterol 25-OH Vitamin D Total PTH Intact Urine pH Urine WBC (Auto) Urine Creatinine Urine Total Protein Fluid Total Protein Vancomycin Trough Rheumatoid Factor Complement C4 Miscellaneous Test Crossmatch See Detail 10/06/16 10/06/16 10/06/16 03:50 03:50 04:53 WBC RBC 3.00 L Hgb 8.6 L Hct 25.8 L MCV MCH MCHC RDW 17.9 H Plt Count 65 L Lymph % (Auto) [place] % (Auto) Lymph # [place] # Baso # Seg Neutrophils % Seg Neuts % (Manual) 30.0 L Lymphocytes % (Manual) 5.0 L Monocytes % (Manual) Eosinophils % (Manual) Basophils % (Manual) Nucleated RBC % Seg Neutrophils # Seg Neutrophils # Man Lymphocytes # (Manual) 0.4 L Monocytes # (Manual) Eosinophils # (Manual) Basophils # (Manual) PT INR Fibrinogen dRVVT Confirm Interp Factor V Activity POC ABG pH 7.310 L POC ABG pCO2 49.0 H POC ABG pO2 ABG pO2 ABG HCO3 ABG Base Excess ABG Hemoglobin Oxyhemoglobin Sodium 133 L Potassium Chloride 95.9 L Carbon Dioxide BUN 26 H Creatinine 2.0 H Glucose 116 H POC Glucose Lactic Acid Calcium 7.8 L Ionized Calcium Phosphorus Magnesium Direct Bilirubin AST ALT Alkaline Phosphatase Lactate Dehydrogenase Troponin T C-Reactive Protein Total Protein Albumin Prealbumin Triglycerides Cholesterol LDL Cholesterol Direct HDL Cholesterol 25-OH Vitamin D Total PTH Intact Urine pH Urine WBC (Auto) Urine Creatinine Urine Total Protein Fluid Total Protein Vancomycin Trough Rheumatoid Factor Complement C4 Miscellaneous Test Crossmatch 10/06/16 10/06/16 10/06/16 05:23 11:52 18:34 WBC RBC Hgb Hct MCV MCH MCHC RDW Plt Count Lymph % (Auto) [place] % (Auto) Lymph # [place] # Baso # Seg Neutrophils % Seg Neuts % (Manual) Lymphocytes % (Manual) Monocytes % (Manual) Eosinophils % (Manual) Basophils % (Manual) Nucleated RBC % Seg Neutrophils # Seg Neutrophils # Man Lymphocytes # (Manual) Monocytes # (Manual) Eosinophils # (Manual) Basophils # (Manual) PT INR Fibrinogen dRVVT Confirm Interp Factor V Activity POC ABG pH POC ABG pCO2 POC ABG pO2 ABG pO2 ABG HCO3 ABG Base Excess ABG Hemoglobin Oxyhemoglobin Sodium Potassium Chloride Carbon Dioxide BUN Creatinine Glucose POC Glucose 126 H 116 H 129 H Lactic Acid Calcium Ionized Calcium Phosphorus Magnesium Direct Bilirubin AST ALT Alkaline Phosphatase Lactate Dehydrogenase Troponin T C-Reactive Protein Total Protein Albumin Prealbumin Triglycerides Cholesterol LDL Cholesterol Direct HDL Cholesterol 25-OH Vitamin D Total PTH Intact Urine pH Urine WBC (Auto) Urine Creatinine Urine Total Protein Fluid Total Protein Vancomycin Trough Rheumatoid Factor Complement C4 Miscellaneous Test Crossmatch 10/07/16 10/07/16 10/07/16 03:45 05:00 10:00 WBC 17.0 H RBC 2.68 L Hgb 7.3 L Hct 25.3 L MCV MCH 27 L MCHC 29 L RDW 19.6 H Plt Count 74 L Lymph % (Auto) [place] % (Auto) Lymph # [place] # Baso # Seg Neutrophils % Seg Neuts % (Manual) Lymphocytes % (Manual) 12.0 L Monocytes % (Manual) Eosinophils % (Manual) Basophils % (Manual) Nucleated RBC % 4.0 H Seg Neutrophils # Seg Neutrophils # Man 10.7 H Lymphocytes # (Manual) Monocytes # (Manual) Eosinophils # (Manual) Basophils # (Manual) PT INR Fibrinogen dRVVT Confirm Interp Factor V Activity POC ABG pH POC ABG pCO2 POC ABG pO2 ABG pO2 ABG HCO3 ABG Base Excess ABG Hemoglobin Oxyhemoglobin Sodium 130 L Potassium 3.2 L Chloride 93.9 L Carbon Dioxide 20 L BUN 44 H Creatinine 2.7 H Glucose 129 H POC Glucose Lactic Acid Calcium 7.4 L Ionized Calcium Phosphorus Magnesium Direct Bilirubin AST ALT 6 L Alkaline Phosphatase 195 H Lactate Dehydrogenase Troponin T C-Reactive Protein Total Protein 4.9 L Albumin 1.0 L Prealbumin Triglycerides Cholesterol LDL Cholesterol Direct HDL Cholesterol 25-OH Vitamin D Total PTH Intact Urine pH Urine WBC (Auto) Urine Creatinine Urine Total Protein Fluid Total Protein Vancomycin Trough Rheumatoid Factor Complement C4 Miscellaneous Test Flexitest 1 H Crossmatch 10/07/16 10/07/16 10/07/16 10:00 11:24 18:10 WBC RBC Hgb Hct MCV MCH MCHC RDW Plt Count Lymph % (Auto) [place] % (Auto) Lymph # [place] # Baso # Seg Neutrophils % Seg Neuts % (Manual) Lymphocytes % (Manual) Monocytes % (Manual) Eosinophils % (Manual) Basophils % (Manual) Nucleated RBC % Seg Neutrophils # Seg Neutrophils # Man Lymphocytes # (Manual) Monocytes # (Manual) Eosinophils # (Manual) Basophils # (Manual) PT INR Fibrinogen dRVVT Confirm Interp Factor V Activity POC ABG pH POC ABG pCO2 POC ABG pO2 ABG pO2 ABG HCO3 ABG Base Excess ABG Hemoglobin Oxyhemoglobin Sodium Potassium Chloride Carbon Dioxide BUN Creatinine Glucose POC Glucose 116 H 130 H Lactic Acid Calcium Ionized Calcium Phosphorus Magnesium Direct Bilirubin AST ALT Alkaline Phosphatase Lactate Dehydrogenase Troponin T C-Reactive Protein 19.40 H Total Protein Albumin Prealbumin Triglycerides Cholesterol LDL Cholesterol Direct HDL Cholesterol 25-OH Vitamin D Total PTH Intact Urine pH Urine WBC (Auto) Urine Creatinine Urine Total Protein Fluid Total Protein Vancomycin Trough Rheumatoid Factor Complement C4 Miscellaneous Test Crossmatch 10/07/16 10/08/16 10/08/16 18:30 00:00 04:00 WBC RBC Hgb Hct MCV MCH MCHC RDW Plt Count Lymph % (Auto) [place] % (Auto) Lymph # [place] # Baso # Seg Neutrophils % Seg Neuts % (Manual) Lymphocytes % (Manual) Monocytes % (Manual) Eosinophils % (Manual) Basophils % (Manual) Nucleated RBC % Seg Neutrophils # Seg Neutrophils # Man Lymphocytes # (Manual) Monocytes # (Manual) Eosinophils # (Manual) Basophils # (Manual) PT INR Fibrinogen dRVVT Confirm Interp Factor V Activity POC ABG pH POC ABG pCO2 POC ABG pO2 ABG pO2 ABG HCO3 ABG Base Excess ABG Hemoglobin Oxyhemoglobin Sodium 132 L Potassium 3.3 L Chloride 93.6 L Carbon Dioxide 17 L BUN 59 H Creatinine 2.7 H Glucose 121 H POC Glucose 122 H Lactic Acid Calcium 7.6 L Ionized Calcium Phosphorus Magnesium Direct Bilirubin AST ALT Alkaline Phosphatase Lactate Dehydrogenase Troponin T C-Reactive Protein Total Protein Albumin Prealbumin Triglycerides Cholesterol LDL Cholesterol Direct HDL Cholesterol 25-OH Vitamin D Total PTH Intact Urine pH Urine WBC (Auto) > 182.0 H Urine Creatinine Urine Total Protein Fluid Total Protein Vancomycin Trough Rheumatoid Factor Complement C4 Miscellaneous Test Crossmatch 10/08/16 10/08/16 10/08/16 04:30 05:30 11:51 WBC RBC 5.15 H Hgb 14.4 H D Hct 44.5 H D MCV MCH MCHC RDW 19.5 H Plt Count 56 L Lymph % (Auto) [place] % (Auto) Lymph # [place] # Baso # Seg Neutrophils % Seg Neuts % (Manual) 24.0 L Lymphocytes % (Manual) 8.0 L Monocytes % (Manual) Eosinophils % (Manual) Basophils % (Manual) Nucleated RBC % 9.0 H Seg Neutrophils # Seg Neutrophils # Man Lymphocytes # (Manual) 0.7 L Monocytes # (Manual) Eosinophils # (Manual) Basophils # (Manual) PT INR Fibrinogen dRVVT Confirm Interp Factor V Activity POC ABG pH POC ABG pCO2 POC ABG pO2 ABG pO2 ABG HCO3 ABG Base Excess ABG Hemoglobin Oxyhemoglobin Sodium Potassium Chloride Carbon Dioxide BUN Creatinine Glucose POC Glucose 125 H 150 H Lactic Acid Calcium Ionized Calcium Phosphorus Magnesium Direct Bilirubin AST ALT Alkaline Phosphatase Lactate Dehydrogenase Troponin T C-Reactive Protein Total Protein Albumin Prealbumin Triglycerides Cholesterol LDL Cholesterol Direct HDL Cholesterol 25-OH Vitamin D Total PTH Intact Urine pH Urine WBC (Auto) Urine Creatinine Urine Total Protein Fluid Total Protein Vancomycin Trough Rheumatoid Factor Complement C4 Miscellaneous Test Crossmatch 10/08/16 10/08/16 10/08/16 12:49 17:07 19:30 WBC RBC Hgb 7.1 L D Hct 22.4 L D MCV MCH MCHC RDW Plt Count Lymph % (Auto) [place] % (Auto) Lymph # [place] # Baso # Seg Neutrophils % Seg Neuts % (Manual) Lymphocytes % (Manual) Monocytes % (Manual) Eosinophils % (Manual) Basophils % (Manual) Nucleated RBC % Seg Neutrophils # Seg Neutrophils # Man Lymphocytes # (Manual) Monocytes # (Manual) Eosinophils # (Manual) Basophils # (Manual) PT INR Fibrinogen dRVVT Confirm Interp Factor V Activity POC ABG pH POC ABG pCO2 28.2 L POC ABG pO2 111 H ABG pO2 ABG HCO3 ABG Base Excess ABG Hemoglobin Oxyhemoglobin Sodium Potassium Chloride Carbon Dioxide BUN Creatinine Glucose POC Glucose 145 H Lactic Acid Calcium Ionized Calcium Phosphorus Magnesium Direct Bilirubin AST ALT Alkaline Phosphatase Lactate Dehydrogenase Troponin T C-Reactive Protein Total Protein Albumin Prealbumin Triglycerides Cholesterol LDL Cholesterol Direct HDL Cholesterol 25-OH Vitamin D Total PTH Intact Urine pH Urine WBC (Auto) Urine Creatinine Urine Total Protein Fluid Total Protein Vancomycin Trough Rheumatoid Factor Complement C4 Miscellaneous Test Crossmatch 10/08/16 10/09/16 10/09/16 19:30 03:45 03:45 WBC 12.6 H RBC 2.36 L Hgb 6.7 L Hct 21.1 L MCV MCH MCHC RDW 19.5 H Plt Count 75 L Lymph % (Auto) [place] % (Auto) Lymph # [place] # Baso # Seg Neutrophils % Seg Neuts % (Manual) Lymphocytes % (Manual) Monocytes % (Manual) 10.0 H Eosinophils % (Manual) Basophils % (Manual) Nucleated RBC % 3.0 H Seg Neutrophils # Seg Neutrophils # Man Lymphocytes # (Manual) Monocytes # (Manual) 1.3 H Eosinophils # (Manual) Basophils # (Manual) PT 18.0 H INR 1.41 H Fibrinogen dRVVT Confirm Interp Factor V Activity POC ABG pH POC ABG pCO2 POC ABG pO2 ABG pO2 ABG HCO3 ABG Base Excess ABG Hemoglobin Oxyhemoglobin Sodium 135 L Potassium Chloride Carbon Dioxide 17 L BUN 81 H Creatinine 3.2 H Glucose 109 H POC Glucose Lactic Acid Calcium 7.4 L Ionized Calcium Phosphorus 4.60 H D Magnesium Direct Bilirubin AST ALT Alkaline Phosphatase Lactate Dehydrogenase Troponin T C-Reactive Protein Total Protein Albumin Prealbumin Triglycerides Cholesterol LDL Cholesterol Direct HDL Cholesterol 25-OH Vitamin D Total PTH Intact Urine pH Urine WBC (Auto) Urine Creatinine Urine Total Protein Fluid Total Protein Vancomycin Trough Rheumatoid Factor Complement C4 Miscellaneous Test Crossmatch 10/09/16 10/09/16 10/09/16 03:45 05:14 07:20 WBC RBC Hgb Hct MCV MCH MCHC RDW Plt Count Lymph % (Auto) [place] % (Auto) Lymph # [place] # Baso # Seg Neutrophils % Seg Neuts % (Manual) Lymphocytes % (Manual) Monocytes % (Manual) Eosinophils % (Manual) Basophils % (Manual) Nucleated RBC % Seg Neutrophils # Seg Neutrophils # Man Lymphocytes # (Manual) Monocytes # (Manual) Eosinophils # (Manual) Basophils # (Manual) PT 19.0 H INR 1.51 H Fibrinogen dRVVT Confirm Interp Factor V Activity POC ABG pH POC ABG pCO2 POC ABG pO2 ABG pO2 ABG HCO3 ABG Base Excess ABG Hemoglobin Oxyhemoglobin Sodium Potassium Chloride Carbon Dioxide BUN Creatinine Glucose POC Glucose 151 H Lactic Acid Calcium Ionized Calcium Phosphorus Magnesium Direct Bilirubin AST ALT Alkaline Phosphatase Lactate Dehydrogenase Troponin T C-Reactive Protein Total Protein Albumin Prealbumin Triglycerides Cholesterol LDL Cholesterol Direct HDL Cholesterol 25-OH Vitamin D Total PTH Intact Urine pH Urine WBC (Auto) Urine Creatinine Urine Total Protein Fluid Total Protein Vancomycin Trough Rheumatoid Factor Complement C4 Miscellaneous Test Crossmatch See Detail 10/09/16 10/09/16 10/09/16 11:46 16:20 16:43 WBC RBC Hgb 7.2 L Hct 22.2 L MCV MCH MCHC RDW Plt Count Lymph % (Auto) [place] % (Auto) Lymph # [place] # Baso # Seg Neutrophils % Seg Neuts % (Manual) Lymphocytes % (Manual) Monocytes % (Manual) Eosinophils % (Manual) Basophils % (Manual) Nucleated RBC % Seg Neutrophils # Seg Neutrophils # Man Lymphocytes # (Manual) Monocytes # (Manual) Eosinophils # (Manual) Basophils # (Manual) PT INR Fibrinogen dRVVT Confirm Interp Factor V Activity POC ABG pH POC ABG pCO2 POC ABG pO2 ABG pO2 ABG HCO3 ABG Base Excess ABG Hemoglobin Oxyhemoglobin Sodium Potassium Chloride Carbon Dioxide BUN Creatinine Glucose POC Glucose 133 H 141 H Lactic Acid Calcium Ionized Calcium Phosphorus Magnesium Direct Bilirubin AST ALT Alkaline Phosphatase Lactate Dehydrogenase Troponin T C-Reactive Protein Total Protein Albumin Prealbumin Triglycerides Cholesterol LDL Cholesterol Direct HDL Cholesterol 25-OH Vitamin D Total PTH Intact Urine pH Urine WBC (Auto) Urine Creatinine Urine Total Protein Fluid Total Protein Vancomycin Trough Rheumatoid Factor Complement C4 Miscellaneous Test Crossmatch 10/10/16 10/10/16 10/10/16 05:00 05:00 11:19 WBC 18.5 H RBC 2.19 L Hgb 6.4 L Hct 19.6 L* MCV MCH MCHC RDW 19.3 H Plt Count 93 L Lymph % (Auto) [place] % (Auto) Lymph # [place] # Baso # Seg Neutrophils % Seg Neuts % (Manual) Lymphocytes % (Manual) 10.0 L Monocytes % (Manual) Eosinophils % (Manual) Basophils % (Manual) Nucleated RBC % 4.0 H Seg Neutrophils # Seg Neutrophils # Man 11.3 H Lymphocytes # (Manual) Monocytes # (Manual) Eosinophils # (Manual) Basophils # (Manual) PT INR Fibrinogen dRVVT Confirm Interp Factor V Activity POC ABG pH POC ABG pCO2 POC ABG pO2 ABG pO2 ABG HCO3 ABG Base Excess ABG Hemoglobin Oxyhemoglobin Sodium Potassium 5.7 H D Chloride Carbon Dioxide 16 L BUN 94 H Creatinine 3.1 H Glucose 131 H POC Glucose 153 H Lactic Acid Calcium 8.2 L Ionized Calcium Phosphorus 5.10 H Magnesium 2.40 H Direct Bilirubin 0.3 H AST ALT < 5 L Alkaline Phosphatase 319 H Lactate Dehydrogenase Troponin T C-Reactive Protein Total Protein 5.1 L Albumin 1.0 L Prealbumin Triglycerides Cholesterol LDL Cholesterol Direct HDL Cholesterol 25-OH Vitamin D Total PTH Intact Urine pH Urine WBC (Auto) Urine Creatinine Urine Total Protein Fluid Total Protein Vancomycin Trough Rheumatoid Factor Complement C4 Miscellaneous Test Crossmatch 10/10/16 10/10/16 10/11/16 17:50 23:30 04:15 WBC RBC Hgb Hct MCV MCH MCHC RDW Plt Count Lymph % (Auto) [place] % (Auto) Lymph # [place] # Baso # Seg Neutrophils % Seg Neuts % (Manual) Lymphocytes % (Manual) Monocytes % (Manual) Eosinophils % (Manual) Basophils % (Manual) Nucleated RBC % Seg Neutrophils # Seg Neutrophils # Man Lymphocytes # (Manual) Monocytes # (Manual) Eosinophils # (Manual) Basophils # (Manual) PT INR Fibrinogen dRVVT Confirm Interp Factor V Activity POC ABG pH POC ABG pCO2 POC ABG pO2 ABG pO2 ABG HCO3 ABG Base Excess ABG Hemoglobin Oxyhemoglobin Sodium Potassium Chloride 96.4 L Carbon Dioxide 21 L BUN 57 H Creatinine 2.1 H Glucose 151 H POC Glucose 146 H 141 H Lactic Acid Calcium 8.3 L Ionized Calcium Phosphorus Magnesium Direct Bilirubin AST ALT Alkaline Phosphatase Lactate Dehydrogenase Troponin T C-Reactive Protein Total Protein Albumin Prealbumin Triglycerides Cholesterol LDL Cholesterol Direct HDL Cholesterol 25-OH Vitamin D Total PTH Intact Urine pH Urine WBC (Auto) Urine Creatinine Urine Total Protein Fluid Total Protein Vancomycin Trough Rheumatoid Factor Complement C4 Miscellaneous Test Crossmatch 10/11/16 10/11/16 10/11/16 04:15 04:15 05:30 WBC 28.3 H RBC 3.12 L Hgb 9.3 L Hct 28.7 L D MCV MCH MCHC RDW 17.7 H Plt Count 128 L Lymph % (Auto) [place] % (Auto) Lymph # [place] # Baso # Seg Neutrophils % Seg Neuts % (Manual) Lymphocytes % (Manual) Monocytes % (Manual) Eosinophils % (Manual) Basophils % (Manual) Nucleated RBC % Seg Neutrophils # Seg Neutrophils # Man Lymphocytes # (Manual) Monocytes # (Manual) Eosinophils # (Manual) Basophils # (Manual) PT INR Fibrinogen dRVVT Confirm Interp Factor V Activity POC ABG pH POC ABG pCO2 POC ABG pO2 ABG pO2 ABG HCO3 ABG Base Excess ABG Hemoglobin Oxyhemoglobin Sodium Potassium Chloride Carbon Dioxide BUN Creatinine Glucose POC Glucose 167 H Lactic Acid Calcium Ionized Calcium Phosphorus Magnesium Direct Bilirubin AST ALT Alkaline Phosphatase Lactate Dehydrogenase Troponin T C-Reactive Protein 15.80 H Total Protein Albumin Prealbumin Triglycerides Cholesterol LDL Cholesterol Direct HDL Cholesterol 25-OH Vitamin D Total PTH Intact Urine pH Urine WBC (Auto) Urine Creatinine Urine Total Protein Fluid Total Protein Vancomycin Trough Rheumatoid Factor Complement C4 Miscellaneous Test Crossmatch 10/11/16 10/11/1617 11:40 15:49 23:57 WBC RBC Hgb Hct MCV MCH MCHC RDW Plt Count Lymph % (Auto) [place] % (Auto) Lymph # [place] # Baso # Seg Neutrophils % Seg Neuts % (Manual) Lymphocytes % (Manual) Monocytes % (Manual) Eosinophils % (Manual) Basophils % (Manual) Nucleated RBC % Seg Neutrophils # Seg Neutrophils # Man Lymphocytes # (Manual) Monocytes # (Manual) Eosinophils # (Manual) Basophils # (Manual) PT INR Fibrinogen dRVVT Confirm Interp Factor V Activity POC ABG pH POC ABG pCO2 POC ABG pO2 ABG pO2 ABG HCO3 ABG Base Excess ABG Hemoglobin Oxyhemoglobin Sodium Potassium Chloride Carbon Dioxide BUN Creatinine Glucose POC Glucose 139 H 168 H 161 H Lactic Acid Calcium Ionized Calcium Phosphorus Magnesium Direct Bilirubin AST ALT Alkaline Phosphatase Lactate Dehydrogenase Troponin T C-Reactive Protein Total Protein Albumin Prealbumin Triglycerides Cholesterol LDL Cholesterol Direct HDL Cholesterol 25-OH Vitamin D Total PTH Intact Urine pH Urine WBC (Auto) Urine Creatinine Urine Total Protein Fluid Total Protein Vancomycin Trough Rheumatoid Factor Complement C4 Miscellaneous Test Crossmatch 10/12/16 10/12/16 10/12/16 04:40 04:40 05:44 WBC 22.5 H RBC 2.88 L Hgb 8.8 L Hct 26.8 L MCV MCH MCHC RDW 17.8 H Plt Count Lymph % (Auto) [place] % (Auto) Lymph # [place] # Baso # Seg Neutrophils % Seg Neuts % (Manual) Lymphocytes % (Manual) Monocytes % (Manual) Eosinophils % (Manual) Basophils % (Manual) Nucleated RBC % Seg Neutrophils # Seg Neutrophils # Man Lymphocytes # (Manual) Monocytes # (Manual) Eosinophils # (Manual) Basophils # (Manual) PT INR Fibrinogen dRVVT Confirm Interp Factor V Activity POC ABG pH POC ABG pCO2 POC ABG pO2 ABG pO2 ABG HCO3 ABG Base Excess ABG Hemoglobin Oxyhemoglobin Sodium 134 L Potassium Chloride 93.0 L Carbon Dioxide BUN 74 H Creatinine 2.5 H Glucose 137 H POC Glucose 158 H Lactic Acid Calcium 8.2 L Ionized Calcium Phosphorus Magnesium Direct Bilirubin AST ALT Alkaline Phosphatase Lactate Dehydrogenase Troponin T C-Reactive Protein Total Protein Albumin Prealbumin Triglycerides Cholesterol LDL Cholesterol Direct HDL Cholesterol 25-OH Vitamin D Total PTH Intact Urine pH Urine WBC (Auto) Urine Creatinine Urine Total Protein Fluid Total Protein Vancomycin Trough Rheumatoid Factor Complement C4 Miscellaneous Test Crossmatch 10/12/16 10/12/16 10/12/16 12:27 18:18 23:46 WBC RBC Hgb Hct MCV MCH MCHC RDW Plt Count Lymph % (Auto) [place] % (Auto) Lymph # [place] # Baso # Seg Neutrophils % Seg Neuts % (Manual) Lymphocytes % (Manual) Monocytes % (Manual) Eosinophils % (Manual) Basophils % (Manual) Nucleated RBC % Seg Neutrophils # Seg Neutrophils # Man Lymphocytes # (Manual) Monocytes # (Manual) Eosinophils # (Manual) Basophils # (Manual) PT INR Fibrinogen dRVVT Confirm Interp Factor V Activity POC ABG pH POC ABG pCO2 POC ABG pO2 ABG pO2 ABG HCO3 ABG Base Excess ABG Hemoglobin Oxyhemoglobin Sodium Potassium Chloride Carbon Dioxide BUN Creatinine Glucose POC Glucose 153 H 140 H 150 H Lactic Acid Calcium Ionized Calcium Phosphorus Magnesium Direct Bilirubin AST ALT Alkaline Phosphatase Lactate Dehydrogenase Troponin T C-Reactive Protein Total Protein Albumin Prealbumin Triglycerides Cholesterol LDL Cholesterol Direct HDL Cholesterol 25-OH Vitamin D Total PTH Intact Urine pH Urine WBC (Auto) Urine Creatinine Urine Total Protein Fluid Total Protein Vancomycin Trough Rheumatoid Factor Complement C4 Miscellaneous Test Crossmatch 10/13/16 10/13/16 10/13/16 06:22 09:20 12:29 WBC RBC Hgb Hct MCV MCH MCHC RDW Plt Count Lymph % (Auto) [place] % (Auto) Lymph # [place] # Baso # Seg Neutrophils % Seg Neuts % (Manual) Lymphocytes % (Manual) Monocytes % (Manual) Eosinophils % (Manual) Basophils % (Manual) Nucleated RBC % Seg Neutrophils # Seg Neutrophils # Man Lymphocytes # (Manual) Monocytes # (Manual) Eosinophils # (Manual) Basophils # (Manual) PT INR Fibrinogen dRVVT Confirm Interp Factor V Activity POC ABG pH POC ABG pCO2 POC ABG pO2 ABG pO2 ABG HCO3 ABG Base Excess ABG Hemoglobin Oxyhemoglobin Sodium Potassium Chloride Carbon Dioxide BUN Creatinine Glucose POC Glucose 165 H 193 H Lactic Acid Calcium Ionized Calcium Phosphorus Magnesium Direct Bilirubin AST ALT Alkaline Phosphatase Lactate Dehydrogenase Troponin T C-Reactive Protein Total Protein Albumin Prealbumin Triglycerides Cholesterol LDL Cholesterol Direct HDL Cholesterol 25-OH Vitamin D Total PTH Intact Urine pH Urine WBC (Auto) Urine Creatinine Urine Total Protein Fluid Total Protein Vancomycin Trough Rheumatoid Factor Complement C4 Miscellaneous Test Flexitest 1 H Crossmatch 10/13/16 10/13/16 10/13/16 18:09 Unknown Unknown WBC 23.4 H RBC 2.83 L Hgb 8.7 L Hct 26.1 L MCV MCH MCHC RDW 18.1 H Plt Count Lymph % (Auto) [place] % (Auto) Lymph # [place] # Baso # Seg Neutrophils % Seg Neuts % (Manual) Lymphocytes % (Manual) Monocytes % (Manual) Eosinophils % (Manual) Basophils % (Manual) Nucleated RBC % Seg Neutrophils # Seg Neutrophils # Man Lymphocytes # (Manual) Monocytes # (Manual) Eosinophils # (Manual) Basophils # (Manual) PT INR Fibrinogen dRVVT Confirm Interp Factor V Activity POC ABG pH POC ABG pCO2 POC ABG pO2 ABG pO2 ABG HCO3 ABG Base Excess ABG Hemoglobin Oxyhemoglobin Sodium Potassium Chloride 95.8 L Carbon Dioxide BUN 82 H Creatinine 2.6 H Glucose 152 H POC Glucose 166 H Lactic Acid Calcium Ionized Calcium Phosphorus Magnesium Direct Bilirubin AST ALT Alkaline Phosphatase Lactate Dehydrogenase Troponin T C-Reactive Protein Total Protein Albumin Prealbumin Triglycerides Cholesterol LDL Cholesterol Direct HDL Cholesterol 25-OH Vitamin D Total PTH Intact Urine pH Urine WBC (Auto) Urine Creatinine Urine Total Protein Fluid Total Protein Vancomycin Trough Rheumatoid Factor Complement C4 Miscellaneous Test Crossmatch 10/14/16 10/14/16 10/14/16 05:38 06:35 08:10 WBC 20.7 H RBC 2.81 L Hgb 8.4 L Hct 27.2 L MCV MCH MCHC RDW 19.4 H Plt Count Lymph % (Auto) [place] % (Auto) Lymph # [place] # Baso # Seg Neutrophils % Seg Neuts % (Manual) Lymphocytes % (Manual) Monocytes % (Manual) Eosinophils % (Manual) Basophils % (Manual) Nucleated RBC % Seg Neutrophils # Seg Neutrophils # Man Lymphocytes # (Manual) Monocytes # (Manual) Eosinophils # (Manual) Basophils # (Manual) PT INR Fibrinogen dRVVT Confirm Interp Factor V Activity POC ABG pH POC ABG pCO2 POC ABG pO2 ABG pO2 ABG HCO3 ABG Base Excess ABG Hemoglobin Oxyhemoglobin Sodium Potassium Chloride Carbon Dioxide BUN 58 H Creatinine 1.9 H Glucose 169 H POC Glucose 195 H Lactic Acid Calcium Ionized Calcium Phosphorus Magnesium Direct Bilirubin AST ALT Alkaline Phosphatase Lactate Dehydrogenase Troponin T C-Reactive Protein Total Protein Albumin Prealbumin Triglycerides Cholesterol LDL Cholesterol Direct HDL Cholesterol 25-OH Vitamin D Total PTH Intact Urine pH Urine WBC (Auto) Urine Creatinine Urine Total Protein Fluid Total Protein Vancomycin Trough Rheumatoid Factor Complement C4 Miscellaneous Test Crossmatch 10/14/16 10/14/16 10/14/16 11:44 17:13 23:28 WBC RBC Hgb Hct MCV MCH MCHC RDW Plt Count Lymph % (Auto) [place] % (Auto) Lymph # [place] # Baso # Seg Neutrophils % Seg Neuts % (Manual) Lymphocytes % (Manual) Monocytes % (Manual) Eosinophils % (Manual) Basophils % (Manual) Nucleated RBC % Seg Neutrophils # Seg Neutrophils # Man Lymphocytes # (Manual) Monocytes # (Manual) Eosinophils # (Manual) Basophils # (Manual) PT INR Fibrinogen dRVVT Confirm Interp Factor V Activity POC ABG pH POC ABG pCO2 POC ABG pO2 ABG pO2 ABG HCO3 ABG Base Excess ABG Hemoglobin Oxyhemoglobin Sodium Potassium Chloride Carbon Dioxide BUN Creatinine Glucose POC Glucose 174 H 121 H 151 H Lactic Acid Calcium Ionized Calcium Phosphorus Magnesium Direct Bilirubin AST ALT Alkaline Phosphatase Lactate Dehydrogenase Troponin T C-Reactive Protein Total Protein Albumin Prealbumin Triglycerides Cholesterol LDL Cholesterol Direct HDL Cholesterol 25-OH Vitamin D Total PTH Intact Urine pH Urine WBC (Auto) Urine Creatinine Urine Total Protein Fluid Total Protein Vancomycin Trough Rheumatoid Factor Complement C4 Miscellaneous Test Crossmatch 10/15/16 10/15/16 10/15/16 05:06 12:26 17:48 WBC RBC Hgb Hct MCV MCH MCHC RDW Plt Count Lymph % (Auto) [place] % (Auto) Lymph # [place] # Baso # Seg Neutrophils % Seg Neuts % (Manual) Lymphocytes % (Manual) Monocytes % (Manual) Eosinophils % (Manual) Basophils % (Manual) Nucleated RBC % Seg Neutrophils # Seg Neutrophils # Man Lymphocytes # (Manual) Monocytes # (Manual) Eosinophils # (Manual) Basophils # (Manual) PT INR Fibrinogen dRVVT Confirm Interp Factor V Activity POC ABG pH POC ABG pCO2 POC ABG pO2 ABG pO2 ABG HCO3 ABG Base Excess ABG Hemoglobin Oxyhemoglobin Sodium Potassium Chloride Carbon Dioxide BUN Creatinine Glucose POC Glucose 151 H 149 H 153 H Lactic Acid Calcium Ionized Calcium Phosphorus Magnesium Direct Bilirubin AST ALT Alkaline Phosphatase Lactate Dehydrogenase Troponin T C-Reactive Protein Total Protein Albumin Prealbumin Triglycerides Cholesterol LDL Cholesterol Direct HDL Cholesterol 25-OH Vitamin D Total PTH Intact Urine pH Urine WBC (Auto) Urine Creatinine Urine Total Protein Fluid Total Protein Vancomycin Trough Rheumatoid Factor Complement C4 Miscellaneous Test Crossmatch 10/15/16 10/15/16 10/16/16 Unknown Unknown 00:02 WBC 23.4 H RBC 2.78 L Hgb 8.5 L Hct 25.7 L MCV MCH MCHC RDW 18.7 H Plt Count Lymph % (Auto) [place] % (Auto) Lymph # [place] # Baso # Seg Neutrophils % Seg Neuts % (Manual) Lymphocytes % (Manual) Monocytes % (Manual) Eosinophils % (Manual) Basophils % (Manual) Nucleated RBC % Seg Neutrophils # Seg Neutrophils # Man Lymphocytes # (Manual) Monocytes # (Manual) Eosinophils # (Manual) Basophils # (Manual) PT INR Fibrinogen dRVVT Confirm Interp Factor V Activity POC ABG pH POC ABG pCO2 POC ABG pO2 ABG pO2 ABG HCO3 ABG Base Excess ABG Hemoglobin Oxyhemoglobin Sodium Potassium Chloride Carbon Dioxide BUN 73 H Creatinine 2.3 H Glucose 120 H POC Glucose 137 H Lactic Acid Calcium Ionized Calcium Phosphorus Magnesium Direct Bilirubin AST ALT Alkaline Phosphatase Lactate Dehydrogenase Troponin T C-Reactive Protein Total Protein Albumin Prealbumin Triglycerides Cholesterol LDL Cholesterol Direct HDL Cholesterol 25-OH Vitamin D Total PTH Intact Urine pH Urine WBC (Auto) Urine Creatinine Urine Total Protein Fluid Total Protein Vancomycin Trough Rheumatoid Factor Complement C4 Miscellaneous Test Crossmatch 10/16/16 10/16/16 10/16/16 05:44 06:25 06:25 WBC 22.5 H RBC 2.76 L Hgb 8.3 L Hct 25.2 L MCV MCH MCHC RDW 18.3 H Plt Count Lymph % (Auto) [place] % (Auto) Lymph # [place] # Baso # Seg Neutrophils % Seg Neuts % (Manual) Lymphocytes % (Manual) Monocytes % (Manual) Eosinophils % (Manual) Basophils % (Manual) Nucleated RBC % Seg Neutrophils # Seg Neutrophils # Man Lymphocytes # (Manual) Monocytes # (Manual) Eosinophils # (Manual) Basophils # (Manual) PT INR Fibrinogen dRVVT Confirm Interp Factor V Activity POC ABG pH POC ABG pCO2 POC ABG pO2 ABG pO2 ABG HCO3 ABG Base Excess ABG Hemoglobin Oxyhemoglobin Sodium Potassium Chloride Carbon Dioxide BUN 92 H Creatinine 3.0 H Glucose 138 H POC Glucose 110 H Lactic Acid Calcium Ionized Calcium Phosphorus Magnesium Direct Bilirubin AST ALT Alkaline Phosphatase Lactate Dehydrogenase Troponin T C-Reactive Protein Total Protein Albumin Prealbumin Triglycerides Cholesterol LDL Cholesterol Direct HDL Cholesterol 25-OH Vitamin D Total PTH Intact Urine pH Urine WBC (Auto) Urine Creatinine Urine Total Protein Fluid Total Protein Vancomycin Trough Rheumatoid Factor Complement C4 Miscellaneous Test Crossmatch 10/16/16 10/16/16 10/16/16 11:27 11:48 17:36 WBC RBC Hgb Hct MCV MCH MCHC RDW Plt Count Lymph % (Auto) [place] % (Auto) Lymph # [place] # Baso # Seg Neutrophils % Seg Neuts % (Manual) Lymphocytes % (Manual) Monocytes % (Manual) Eosinophils % (Manual) Basophils % (Manual) Nucleated RBC % Seg Neutrophils # Seg Neutrophils # Man Lymphocytes # (Manual) Monocytes # (Manual) Eosinophils # (Manual) Basophils # (Manual) PT INR Fibrinogen dRVVT Confirm Interp Factor V Activity POC ABG pH 7.582 H POC ABG pCO2 27.4 L POC ABG pO2 110 H ABG pO2 ABG HCO3 ABG Base Excess ABG Hemoglobin Oxyhemoglobin Sodium Potassium Chloride Carbon Dioxide BUN Creatinine Glucose POC Glucose 121 H 133 H Lactic Acid Calcium Ionized Calcium Phosphorus Magnesium Direct Bilirubin AST ALT Alkaline Phosphatase Lactate Dehydrogenase Troponin T C-Reactive Protein Total Protein Albumin Prealbumin Triglycerides Cholesterol LDL Cholesterol Direct HDL Cholesterol 25-OH Vitamin D Total PTH Intact Urine pH Urine WBC (Auto) Urine Creatinine Urine Total Protein Fluid Total Protein Vancomycin Trough Rheumatoid Factor Complement C4 Miscellaneous Test Crossmatch 10/16/16 10/17/16 10/17/16 20:48 04:24 04:24 WBC 21.4 H RBC 2.72 L Hgb 8.0 L Hct 25.2 L MCV MCH MCHC RDW 18.0 H Plt Count Lymph % (Auto) [place] % (Auto) Lymph # [place] # Baso # Seg Neutrophils % Seg Neuts % (Manual) Lymphocytes % (Manual) Monocytes % (Manual) Eosinophils % (Manual) Basophils % (Manual) Nucleated RBC % Seg Neutrophils # Seg Neutrophils # Man Lymphocytes # (Manual) Monocytes # (Manual) Eosinophils # (Manual) Basophils # (Manual) PT INR Fibrinogen dRVVT Confirm Interp Factor V Activity POC ABG pH 7.561 H POC ABG pCO2 24.4 L POC ABG pO2 77 L ABG pO2 ABG HCO3 ABG Base Excess ABG Hemoglobin Oxyhemoglobin Sodium 148 H Potassium Chloride Carbon Dioxide BUN 104 H Creatinine 3.0 H Glucose 149 H POC Glucose Lactic Acid Calcium Ionized Calcium Phosphorus Magnesium Direct Bilirubin AST ALT Alkaline Phosphatase 138 H Lactate Dehydrogenase Troponin T C-Reactive Protein Total Protein 6.2 L Albumin 1.5 L Prealbumin Triglycerides Cholesterol LDL Cholesterol Direct HDL Cholesterol 25-OH Vitamin D Total PTH Intact Urine pH Urine WBC (Auto) Urine Creatinine Urine Total Protein Fluid Total Protein Vancomycin Trough Rheumatoid Factor Complement C4 Miscellaneous Test Crossmatch 10/17/16 10/17/16 10/17/16 06:02 12:17 17:14 WBC RBC Hgb Hct MCV MCH MCHC RDW Plt Count Lymph % (Auto) [place] % (Auto) Lymph # [place] # Baso # Seg Neutrophils % Seg Neuts % (Manual) Lymphocytes % (Manual) Monocytes % (Manual) Eosinophils % (Manual) Basophils % (Manual) Nucleated RBC % Seg Neutrophils # Seg Neutrophils # Man Lymphocytes # (Manual) Monocytes # (Manual) Eosinophils # (Manual) Basophils # (Manual) PT INR Fibrinogen dRVVT Confirm Interp Factor V Activity POC ABG pH POC ABG pCO2 POC ABG pO2 ABG pO2 ABG HCO3 ABG Base Excess ABG Hemoglobin Oxyhemoglobin Sodium Potassium Chloride Carbon Dioxide BUN Creatinine Glucose POC Glucose 170 H 167 H 126 H Lactic Acid Calcium Ionized Calcium Phosphorus Magnesium Direct Bilirubin AST ALT Alkaline Phosphatase Lactate Dehydrogenase Troponin T C-Reactive Protein Total Protein Albumin Prealbumin Triglycerides Cholesterol LDL Cholesterol Direct HDL Cholesterol 25-OH Vitamin D Total PTH Intact Urine pH Urine WBC (Auto) Urine Creatinine Urine Total Protein Fluid Total Protein Vancomycin Trough Rheumatoid Factor Complement C4 Miscellaneous Test Crossmatch 10/17/16 10/18/16 10/18/16 23:17 04:00 04:00 WBC 20.7 H RBC 2.47 L Hgb 7.4 L Hct 22.9 L MCV MCH MCHC RDW 17.5 H Plt Count Lymph % (Auto) [place] % (Auto) Lymph # [place] # Baso # Seg Neutrophils % Seg Neuts % (Manual) Lymphocytes % (Manual) Monocytes % (Manual) Eosinophils % (Manual) Basophils % (Manual) Nucleated RBC % Seg Neutrophils # Seg Neutrophils # Man Lymphocytes # (Manual) Monocytes # (Manual) Eosinophils # (Manual) Basophils # (Manual) PT INR Fibrinogen dRVVT Confirm Interp Factor V Activity POC ABG pH POC ABG pCO2 POC ABG pO2 ABG pO2 ABG HCO3 ABG Base Excess ABG Hemoglobin Oxyhemoglobin Sodium 149 H Potassium Chloride 107.9 H Carbon Dioxide 20 L BUN 117 H Creatinine 3.2 H Glucose 119 H POC Glucose 121 H Lactic Acid Calcium Ionized Calcium Phosphorus Magnesium Direct Bilirubin AST ALT Alkaline Phosphatase Lactate Dehydrogenase Troponin T C-Reactive Protein Total Protein Albumin Prealbumin Triglycerides Cholesterol LDL Cholesterol Direct HDL Cholesterol 25-OH Vitamin D Total PTH Intact Urine pH Urine WBC (Auto) Urine Creatinine Urine Total Protein Fluid Total Protein Vancomycin Trough Rheumatoid Factor Complement C4 Miscellaneous Test Crossmatch 10/18/16 10/18/16 10/18/16 05:23 10:46 17:30 WBC RBC Hgb Hct MCV MCH MCHC RDW Plt Count Lymph % (Auto) [place] % (Auto) Lymph # [place] # Baso # Seg Neutrophils % Seg Neuts % (Manual) Lymphocytes % (Manual) Monocytes % (Manual) Eosinophils % (Manual) Basophils % (Manual) Nucleated RBC % Seg Neutrophils # Seg Neutrophils # Man Lymphocytes # (Manual) Monocytes # (Manual) Eosinophils # (Manual) Basophils # (Manual) PT INR Fibrinogen dRVVT Confirm Interp Factor V Activity POC ABG pH POC ABG pCO2 POC ABG pO2 ABG pO2 ABG HCO3 ABG Base Excess ABG Hemoglobin Oxyhemoglobin Sodium Potassium Chloride Carbon Dioxide BUN Creatinine Glucose POC Glucose 119 H 155 H 124 H Lactic Acid Calcium Ionized Calcium Phosphorus Magnesium Direct Bilirubin AST ALT Alkaline Phosphatase Lactate Dehydrogenase Troponin T C-Reactive Protein Total Protein Albumin Prealbumin Triglycerides Cholesterol LDL Cholesterol Direct HDL Cholesterol 25-OH Vitamin D Total PTH Intact Urine pH Urine WBC (Auto) Urine Creatinine Urine Total Protein Fluid Total Protein Vancomycin Trough Rheumatoid Factor Complement C4 Miscellaneous Test Crossmatch 10/19/16 10/19/16 10/19/16 04:00 04:00 05:25 WBC 17.4 H RBC 2.54 L Hgb 7.7 L Hct 23.6 L MCV MCH MCHC RDW 17.3 H Plt Count Lymph % (Auto) [place] % (Auto) Lymph # [place] # Baso # Seg Neutrophils % Seg Neuts % (Manual) Lymphocytes % (Manual) Monocytes % (Manual) Eosinophils % (Manual) Basophils % (Manual) Nucleated RBC % Seg Neutrophils # Seg Neutrophils # Man Lymphocytes # (Manual) Monocytes # (Manual) Eosinophils # (Manual) Basophils # (Manual) PT INR Fibrinogen dRVVT Confirm Interp Factor V Activity POC ABG pH POC ABG pCO2 POC ABG pO2 ABG pO2 ABG HCO3 ABG Base Excess ABG Hemoglobin Oxyhemoglobin Sodium Potassium Chloride Carbon Dioxide BUN 72 H Creatinine 2.1 H Glucose 116 H POC Glucose 119 H Lactic Acid Calcium Ionized Calcium Phosphorus Magnesium Direct Bilirubin AST ALT Alkaline Phosphatase Lactate Dehydrogenase Troponin T C-Reactive Protein Total Protein Albumin Prealbumin Triglycerides Cholesterol LDL Cholesterol Direct HDL Cholesterol 25-OH Vitamin D Total PTH Intact Urine pH Urine WBC (Auto) Urine Creatinine Urine Total Protein Fluid Total Protein Vancomycin Trough Rheumatoid Factor Complement C4 Miscellaneous Test Crossmatch 10/19/16 10/19/16 10/20/16 11:46 23:59 06:00 WBC RBC Hgb Hct MCV MCH MCHC RDW Plt Count Lymph % (Auto) [place] % (Auto) Lymph # [place] # Baso # Seg Neutrophils % Seg Neuts % (Manual) Lymphocytes % (Manual) Monocytes % (Manual) Eosinophils % (Manual) Basophils % (Manual) Nucleated RBC % Seg Neutrophils # Seg Neutrophils # Man Lymphocytes # (Manual) Monocytes # (Manual) Eosinophils # (Manual) Basophils # (Manual) PT INR Fibrinogen dRVVT Confirm Interp Factor V Activity POC ABG pH POC ABG pCO2 POC ABG pO2 ABG pO2 ABG HCO3 ABG Base Excess ABG Hemoglobin Oxyhemoglobin Sodium Potassium Chloride Carbon Dioxide 17 L BUN 94 H Creatinine 2.7 H Glucose POC Glucose 116 H 117 H Lactic Acid Calcium Ionized Calcium Phosphorus Magnesium Direct Bilirubin AST ALT Alkaline Phosphatase Lactate Dehydrogenase Troponin T C-Reactive Protein Total Protein Albumin Prealbumin Triglycerides Cholesterol LDL Cholesterol Direct HDL Cholesterol 25-OH Vitamin D Total PTH Intact Urine pH Urine WBC (Auto) Urine Creatinine Urine Total Protein Fluid Total Protein Vancomycin Trough Rheumatoid Factor Complement C4 Miscellaneous Test Crossmatch 10/20/16 10/20/16 10/20/16 06:00 11:49 16:00 WBC 19.7 H RBC 2.51 L Hgb 7.7 L Hct 23.5 L MCV MCH MCHC RDW 17.5 H Plt Count Lymph % (Auto) [place] % (Auto) Lymph # [place] # Baso # Seg Neutrophils % Seg Neuts % (Manual) Lymphocytes % (Manual) Monocytes % (Manual) Eosinophils % (Manual) Basophils % (Manual) Nucleated RBC % Seg Neutrophils # Seg Neutrophils # Man Lymphocytes # (Manual) Monocytes # (Manual) Eosinophils # (Manual) Basophils # (Manual) PT INR Fibrinogen dRVVT Confirm Interp Factor V Activity POC ABG pH POC ABG pCO2 POC ABG pO2 ABG pO2 ABG HCO3 ABG Base Excess ABG Hemoglobin Oxyhemoglobin Sodium Potassium Chloride Carbon Dioxide BUN Creatinine Glucose POC Glucose 117 H Lactic Acid Calcium Ionized Calcium Phosphorus Magnesium Direct Bilirubin AST ALT Alkaline Phosphatase Lactate Dehydrogenase Troponin T C-Reactive Protein Total Protein Albumin Prealbumin Triglycerides Cholesterol LDL Cholesterol Direct HDL Cholesterol 25-OH Vitamin D Total PTH Intact Urine pH Urine WBC (Auto) Urine Creatinine Urine Total Protein Fluid Total Protein Vancomycin Trough Rheumatoid Factor Complement C4 Miscellaneous Test Flexitest 1 H Crossmatch 10/20/16 10/20/16 10/21/16 18:36 23:39 04:00 WBC RBC Hgb Hct MCV MCH MCHC RDW Plt Count Lymph % (Auto) [place] % (Auto) Lymph # [place] # Baso # Seg Neutrophils % Seg Neuts % (Manual) Lymphocytes % (Manual) Monocytes % (Manual) Eosinophils % (Manual) Basophils % (Manual) Nucleated RBC % Seg Neutrophils # Seg Neutrophils # Man Lymphocytes # (Manual) Monocytes # (Manual) Eosinophils # (Manual) Basophils # (Manual) PT INR Fibrinogen dRVVT Confirm Interp Factor V Activity POC ABG pH POC ABG pCO2 POC ABG pO2 ABG pO2 ABG HCO3 ABG Base Excess ABG Hemoglobin Oxyhemoglobin Sodium Potassium 5.4 H D Chloride Carbon Dioxide 15 L BUN 110 H Creatinine 3.0 H Glucose POC Glucose 127 H 114 H Lactic Acid Calcium Ionized Calcium Phosphorus Magnesium Direct Bilirubin AST ALT Alkaline Phosphatase Lactate Dehydrogenase Troponin T C-Reactive Protein Total Protein Albumin Prealbumin Triglycerides Cholesterol LDL Cholesterol Direct HDL Cholesterol 25-OH Vitamin D Total PTH Intact Urine pH Urine WBC (Auto) Urine Creatinine Urine Total Protein Fluid Total Protein Vancomycin Trough Rheumatoid Factor Complement C4 Miscellaneous Test Crossmatch 10/21/16 10/21/16 10/22/16 05:54 23:46 05:18 WBC RBC Hgb Hct MCV MCH MCHC RDW Plt Count Lymph % (Auto) [place] % (Auto) Lymph # [place] # Baso # Seg Neutrophils % Seg Neuts % (Manual) Lymphocytes % (Manual) Monocytes % (Manual) Eosinophils % (Manual) Basophils % (Manual) Nucleated RBC % Seg Neutrophils # Seg Neutrophils # Man Lymphocytes # (Manual) Monocytes # (Manual) Eosinophils # (Manual) Basophils # (Manual) PT INR Fibrinogen dRVVT Confirm Interp Factor V Activity POC ABG pH POC ABG pCO2 POC ABG pO2 ABG pO2 ABG HCO3 ABG Base Excess ABG Hemoglobin Oxyhemoglobin Sodium Potassium Chloride Carbon Dioxide BUN Creatinine Glucose POC Glucose 119 H 108 H 109 H Lactic Acid Calcium Ionized Calcium Phosphorus Magnesium Direct Bilirubin AST ALT Alkaline Phosphatase Lactate Dehydrogenase Troponin T C-Reactive Protein Total Protein Albumin Prealbumin Triglycerides Cholesterol LDL Cholesterol Direct HDL Cholesterol 25-OH Vitamin D Total PTH Intact Urine pH Urine WBC (Auto) Urine Creatinine Urine Total Protein Fluid Total Protein Vancomycin Trough Rheumatoid Factor Complement C4 Miscellaneous Test Crossmatch 10/22/16 10/22/16 10/22/16 06:40 06:40 06:40 WBC 14.0 H RBC 2.03 L Hgb 7.0 L Hct 20.5 L MCV 98 H MCH 34 H MCHC 35 H RDW 17.8 H Plt Count Lymph % (Auto) [place] % (Auto) 9.9 H Lymph # [place] # 1.4 H Baso # 0.2 H Seg Neutrophils % 72.0 H Seg Neuts % (Manual) Lymphocytes % (Manual) Monocytes % (Manual) Eosinophils % (Manual) Basophils % (Manual) Nucleated RBC % Seg Neutrophils # 10.0 H Seg Neutrophils # Man Lymphocytes # (Manual) Monocytes # (Manual) Eosinophils # (Manual) Basophils # (Manual) PT INR Fibrinogen dRVVT Confirm Interp Factor V Activity POC ABG pH POC ABG pCO2 POC ABG pO2 ABG pO2 ABG HCO3 ABG Base Excess ABG Hemoglobin Oxyhemoglobin Sodium 130 L D Potassium Chloride 92.4 L Carbon Dioxide 20 L BUN 50 H Creatinine 1.6 H Glucose 589 H* POC Glucose Lactic Acid Calcium 7.8 L D Ionized Calcium Phosphorus Magnesium 1.60 L Direct Bilirubin AST ALT Alkaline Phosphatase Lactate Dehydrogenase Troponin T C-Reactive Protein Total Protein Albumin Prealbumin Triglycerides Cholesterol LDL Cholesterol Direct HDL Cholesterol 25-OH Vitamin D Total PTH Intact Urine pH Urine WBC (Auto) Urine Creatinine Urine Total Protein Fluid Total Protein Vancomycin Trough Rheumatoid Factor Complement C4 Miscellaneous Test Crossmatch 10/22/16 10/22/16 10/22/16 11:39 16:44 23:36 WBC RBC Hgb Hct MCV MCH MCHC RDW Plt Count Lymph % (Auto) [place] % (Auto) Lymph # [place] # Baso # Seg Neutrophils % Seg Neuts % (Manual) Lymphocytes % (Manual) Monocytes % (Manual) Eosinophils % (Manual) Basophils % (Manual) Nucleated RBC % Seg Neutrophils # Seg Neutrophils # Man Lymphocytes # (Manual) Monocytes # (Manual) Eosinophils # (Manual) Basophils # (Manual) PT INR Fibrinogen dRVVT Confirm Interp Factor V Activity POC ABG pH POC ABG pCO2 POC ABG pO2 ABG pO2 ABG HCO3 ABG Base Excess ABG Hemoglobin Oxyhemoglobin Sodium Potassium Chloride Carbon Dioxide BUN Creatinine Glucose POC Glucose 142 H 163 H 123 H Lactic Acid Calcium Ionized Calcium Phosphorus Magnesium Direct Bilirubin AST ALT Alkaline Phosphatase Lactate Dehydrogenase Troponin T C-Reactive Protein Total Protein Albumin Prealbumin Triglycerides Cholesterol LDL Cholesterol Direct HDL Cholesterol 25-OH Vitamin D Total PTH Intact Urine pH Urine WBC (Auto) Urine Creatinine Urine Total Protein Fluid Total Protein Vancomycin Trough Rheumatoid Factor Complement C4 Miscellaneous Test Crossmatch 10/23/16 10/23/16 10/23/16 04:58 06:00 12:12 WBC RBC Hgb Hct MCV MCH MCHC RDW Plt Count Lymph % (Auto) [place] % (Auto) Lymph # [place] # Baso # Seg Neutrophils % Seg Neuts % (Manual) Lymphocytes % (Manual) Monocytes % (Manual) Eosinophils % (Manual) Basophils % (Manual) Nucleated RBC % Seg Neutrophils # Seg Neutrophils # Man Lymphocytes # (Manual) Monocytes # (Manual) Eosinophils # (Manual) Basophils # (Manual) PT INR Fibrinogen dRVVT Confirm Interp Factor V Activity POC ABG pH POC ABG pCO2 POC ABG pO2 ABG pO2 ABG HCO3 ABG Base Excess ABG Hemoglobin Oxyhemoglobin Sodium 133 L Potassium 3.5 L Chloride 96.1 L Carbon Dioxide 18 L BUN 76 H Creatinine 2.1 H Glucose POC Glucose 133 H 138 H Lactic Acid Calcium 8.3 L Ionized Calcium Phosphorus Magnesium Direct Bilirubin AST ALT Alkaline Phosphatase Lactate Dehydrogenase Troponin T C-Reactive Protein Total Protein Albumin Prealbumin Triglycerides Cholesterol LDL Cholesterol Direct HDL Cholesterol 25-OH Vitamin D Total PTH Intact Urine pH Urine WBC (Auto) Urine Creatinine Urine Total Protein Fluid Total Protein Vancomycin Trough Rheumatoid Factor Complement C4 Miscellaneous Test Crossmatch 10/23/16 10/23/16 10/24/16 16:53 23:37 04:00 WBC RBC Hgb Hct MCV MCH MCHC RDW Plt Count Lymph % (Auto) [place] % (Auto) Lymph # [place] # Baso # Seg Neutrophils % Seg Neuts % (Manual) Lymphocytes % (Manual) Monocytes % (Manual) Eosinophils % (Manual) Basophils % (Manual) Nucleated RBC % Seg Neutrophils # Seg Neutrophils # Man Lymphocytes # (Manual) Monocytes # (Manual) Eosinophils # (Manual) Basophils # (Manual) PT INR Fibrinogen dRVVT Confirm Interp Factor V Activity POC ABG pH POC ABG pCO2 POC ABG pO2 ABG pO2 ABG HCO3 ABG Base Excess ABG Hemoglobin Oxyhemoglobin Sodium 131 L Potassium Chloride 94.5 L Carbon Dioxide 19 L BUN 97 H Creatinine 2.6 H Glucose 110 H POC Glucose 125 H 123 H Lactic Acid Calcium 8.3 L Ionized Calcium Phosphorus Magnesium Direct Bilirubin AST ALT Alkaline Phosphatase Lactate Dehydrogenase Troponin T C-Reactive Protein Total Protein Albumin Prealbumin Triglycerides Cholesterol LDL Cholesterol Direct HDL Cholesterol 25-OH Vitamin D Total PTH Intact Urine pH Urine WBC (Auto) Urine Creatinine Urine Total Protein Fluid Total Protein Vancomycin Trough Rheumatoid Factor Complement C4 Miscellaneous Test Crossmatch 10/24/16 10/24/16 10/24/16 07:49 11:39 17:52 WBC RBC Hgb 6.0 L Hct 19.7 L* MCV MCH MCHC RDW Plt Count Lymph % (Auto) [place] % (Auto) Lymph # [place] # Baso # Seg Neutrophils % Seg Neuts % (Manual) Lymphocytes % (Manual) Monocytes % (Manual) Eosinophils % (Manual) Basophils % (Manual) Nucleated RBC % Seg Neutrophils # Seg Neutrophils # Man Lymphocytes # (Manual) Monocytes # (Manual) Eosinophils # (Manual) Basophils # (Manual) PT INR Fibrinogen dRVVT Confirm Interp Factor V Activity POC ABG pH POC ABG pCO2 POC ABG pO2 ABG pO2 ABG HCO3 ABG Base Excess ABG Hemoglobin Oxyhemoglobin Sodium Potassium Chloride Carbon Dioxide BUN Creatinine Glucose POC Glucose 106 H 158 H Lactic Acid Calcium Ionized Calcium Phosphorus Magnesium Direct Bilirubin AST ALT Alkaline Phosphatase Lactate Dehydrogenase Troponin T C-Reactive Protein Total Protein Albumin Prealbumin Triglycerides Cholesterol LDL Cholesterol Direct HDL Cholesterol 25-OH Vitamin D Total PTH Intact Urine pH Urine WBC (Auto) Urine Creatinine Urine Total Protein Fluid Total Protein Vancomycin Trough Rheumatoid Factor Complement C4 Miscellaneous Test Crossmatch 10/24/16 10/24/16 10/24/16 20:00 22:27 Unknown WBC RBC Hgb 9.4 L D Hct 27.5 L D MCV MCH MCHC RDW Plt Count Lymph % (Auto) [place] % (Auto) Lymph # [place] # Baso # Seg Neutrophils % Seg Neuts % (Manual) Lymphocytes % (Manual) Monocytes % (Manual) Eosinophils % (Manual) Basophils % (Manual) Nucleated RBC % Seg Neutrophils # Seg Neutrophils # Man Lymphocytes # (Manual) Monocytes # (Manual) Eosinophils # (Manual) Basophils # (Manual) PT INR Fibrinogen dRVVT Confirm Interp Factor V Activity POC ABG pH POC ABG pCO2 POC ABG pO2 ABG pO2 ABG HCO3 ABG Base Excess ABG Hemoglobin Oxyhemoglobin Sodium Potassium Chloride Carbon Dioxide BUN Creatinine Glucose POC Glucose 125 H Lactic Acid Calcium Ionized Calcium Phosphorus Magnesium Direct Bilirubin AST ALT Alkaline Phosphatase Lactate Dehydrogenase Troponin T C-Reactive Protein Total Protein Albumin Prealbumin Triglycerides Cholesterol LDL Cholesterol Direct HDL Cholesterol 25-OH Vitamin D Total PTH Intact Urine pH Urine WBC (Auto) Urine Creatinine Urine Total Protein Fluid Total Protein Vancomycin Trough Rheumatoid Factor Complement C4 Miscellaneous Test Crossmatch See Detail 10/25/16 10/25/16 10/25/16 04:00 04:00 04:00 WBC 14.2 H RBC 2.98 L Hgb 9.0 L Hct 26.2 L MCV MCH MCHC RDW 16.6 H Plt Count Lymph % (Auto) [place] % (Auto) 10.7 H Lymph # [place] # 1.5 H Baso # Seg Neutrophils % 73.6 H Seg Neuts % (Manual) Lymphocytes % (Manual) Monocytes % (Manual) Eosinophils % (Manual) Basophils % (Manual) Nucleated RBC % Seg Neutrophils # 10.5 H Seg Neutrophils # Man Lymphocytes # (Manual) Monocytes # (Manual) Eosinophils # (Manual) Basophils # (Manual) PT INR Fibrinogen dRVVT Confirm Interp Factor V Activity POC ABG pH POC ABG pCO2 POC ABG pO2 ABG pO2 ABG HCO3 ABG Base Excess ABG Hemoglobin Oxyhemoglobin Sodium 132 L Potassium Chloride 94.7 L Carbon Dioxide BUN 51 H Creatinine 1.6 H Glucose 130 H POC Glucose Lactic Acid Calcium 8.3 L Ionized Calcium Phosphorus 1.60 L D Magnesium Direct Bilirubin AST ALT Alkaline Phosphatase Lactate Dehydrogenase Troponin T C-Reactive Protein Total Protein Albumin Prealbumin Triglycerides Cholesterol LDL Cholesterol Direct HDL Cholesterol 25-OH Vitamin D Total PTH Intact Urine pH Urine WBC (Auto) Urine Creatinine Urine Total Protein Fluid Total Protein Vancomycin Trough Rheumatoid Factor Complement C4 Miscellaneous Test Crossmatch 10/25/16 10/25/16 10/25/16 04:32 11:48 17:22 WBC RBC Hgb Hct MCV MCH MCHC RDW Plt Count Lymph % (Auto) [place] % (Auto) Lymph # [place] # Baso # Seg Neutrophils % Seg Neuts % (Manual) Lymphocytes % (Manual) Monocytes % (Manual) Eosinophils % (Manual) Basophils % (Manual) Nucleated RBC % Seg Neutrophils # Seg Neutrophils # Man Lymphocytes # (Manual) Monocytes # (Manual) Eosinophils # (Manual) Basophils # (Manual) PT INR Fibrinogen dRVVT Confirm Interp Factor V Activity POC ABG pH POC ABG pCO2 POC ABG pO2 ABG pO2 ABG HCO3 ABG Base Excess ABG Hemoglobin Oxyhemoglobin Sodium Potassium Chloride Carbon Dioxide BUN Creatinine Glucose POC Glucose 124 H 171 H 120 H Lactic Acid Calcium Ionized Calcium Phosphorus Magnesium Direct Bilirubin AST ALT Alkaline Phosphatase Lactate Dehydrogenase Troponin T C-Reactive Protein Total Protein Albumin Prealbumin Triglycerides Cholesterol LDL Cholesterol Direct HDL Cholesterol 25-OH Vitamin D Total PTH Intact Urine pH Urine WBC (Auto) Urine Creatinine Urine Total Protein Fluid Total Protein Vancomycin Trough Rheumatoid Factor Complement C4 Miscellaneous Test Crossmatch 10/26/16 10/26/16 10/26/16 04:54 07:06 07:06 WBC 16.9 H RBC 3.06 L Hgb 9.1 L Hct 26.9 L MCV MCH MCHC RDW 16.9 H Plt Count Lymph % (Auto) [place] % (Auto) Lymph # [place] # Baso # Seg Neutrophils % Seg Neuts % (Manual) 71.0 H Lymphocytes % (Manual) 5.0 L Monocytes % (Manual) 12.0 H Eosinophils % (Manual) Basophils % (Manual) Nucleated RBC % Seg Neutrophils # Seg Neutrophils # Man 12.0 H Lymphocytes # (Manual) 0.8 L Monocytes # (Manual) 2.0 H Eosinophils # (Manual) Basophils # (Manual) PT INR Fibrinogen dRVVT Confirm Interp Factor V Activity POC ABG pH POC ABG pCO2 POC ABG pO2 ABG pO2 ABG HCO3 ABG Base Excess ABG Hemoglobin Oxyhemoglobin Sodium 135 L Potassium Chloride 97.1 L Carbon Dioxide BUN 73 H Creatinine 2.2 H Glucose 117 H POC Glucose 123 H Lactic Acid Calcium Ionized Calcium Phosphorus 1.70 L Magnesium Direct Bilirubin AST ALT Alkaline Phosphatase Lactate Dehydrogenase Troponin T C-Reactive Protein Total Protein Albumin Prealbumin Triglycerides Cholesterol LDL Cholesterol Direct HDL Cholesterol 25-OH Vitamin D Total PTH Intact Urine pH Urine WBC (Auto) Urine Creatinine Urine Total Protein Fluid Total Protein Vancomycin Trough Rheumatoid Factor Complement C4 Miscellaneous Test Crossmatch 10/26/16 10/26/16 10/26/16 12:12 17:29 23:42 WBC RBC Hgb Hct MCV MCH MCHC RDW Plt Count Lymph % (Auto) [place] % (Auto) Lymph # [place] # Baso # Seg Neutrophils % Seg Neuts % (Manual) Lymphocytes % (Manual) Monocytes % (Manual) Eosinophils % (Manual) Basophils % (Manual) Nucleated RBC % Seg Neutrophils # Seg Neutrophils # Man Lymphocytes # (Manual) Monocytes # (Manual) Eosinophils # (Manual) Basophils # (Manual) PT INR Fibrinogen dRVVT Confirm Interp Factor V Activity POC ABG pH POC ABG pCO2 POC ABG pO2 ABG pO2 ABG HCO3 ABG Base Excess ABG Hemoglobin Oxyhemoglobin Sodium Potassium Chloride Carbon Dioxide BUN Creatinine Glucose POC Glucose 126 H 161 H 118 H Lactic Acid Calcium Ionized Calcium Phosphorus Magnesium Direct Bilirubin AST ALT Alkaline Phosphatase Lactate Dehydrogenase Troponin T C-Reactive Protein Total Protein Albumin Prealbumin Triglycerides Cholesterol LDL Cholesterol Direct HDL Cholesterol 25-OH Vitamin D Total PTH Intact Urine pH Urine WBC (Auto) Urine Creatinine Urine Total Protein Fluid Total Protein Vancomycin Trough Rheumatoid Factor Complement C4 Miscellaneous Test Crossmatch 10/27/16 10/27/16 10/27/16 05:03 06:30 06:30 WBC 13.9 H RBC 3.09 L Hgb 9.2 L Hct 27.5 L MCV MCH MCHC RDW 17.0 H Plt Count Lymph % (Auto) [place] % (Auto) Lymph # [place] # Baso # Seg Neutrophils % Seg Neuts % (Manual) 78.0 H Lymphocytes % (Manual) Monocytes % (Manual) Eosinophils % (Manual) Basophils % (Manual) Nucleated RBC % 2.0 H Seg Neutrophils # Seg Neutrophils # Man 10.8 H Lymphocytes # (Manual) Monocytes # (Manual) 1.0 H Eosinophils # (Manual) Basophils # (Manual) PT INR Fibrinogen dRVVT Confirm Interp Factor V Activity POC ABG pH POC ABG pCO2 POC ABG pO2 ABG pO2 ABG HCO3 ABG Base Excess ABG Hemoglobin Oxyhemoglobin Sodium Potassium Chloride Carbon Dioxide BUN 40 H Creatinine 1.5 H Glucose 135 H POC Glucose 107 H Lactic Acid Calcium 8.3 L Ionized Calcium Phosphorus 1.30 L D Magnesium Direct Bilirubin AST ALT Alkaline Phosphatase Lactate Dehydrogenase Troponin T C-Reactive Protein Total Protein Albumin Prealbumin Triglycerides Cholesterol LDL Cholesterol Direct HDL Cholesterol 25-OH Vitamin D Total PTH Intact Urine pH Urine WBC (Auto) Urine Creatinine Urine Total Protein Fluid Total Protein Vancomycin Trough Rheumatoid Factor Complement C4 Miscellaneous Test Crossmatch 10/27/16 10/27/16 10/27/16 13:27 18:07 23:40 WBC RBC Hgb Hct MCV MCH MCHC RDW Plt Count Lymph % (Auto) [place] % (Auto) Lymph # [place] # Baso # Seg Neutrophils % Seg Neuts % (Manual) Lymphocytes % (Manual) Monocytes % (Manual) Eosinophils % (Manual) Basophils % (Manual) Nucleated RBC % Seg Neutrophils # Seg Neutrophils # Man Lymphocytes # (Manual) Monocytes # (Manual) Eosinophils # (Manual) Basophils # (Manual) PT INR Fibrinogen dRVVT Confirm Interp Factor V Activity POC ABG pH POC ABG pCO2 POC ABG pO2 ABG pO2 ABG HCO3 ABG Base Excess ABG Hemoglobin Oxyhemoglobin Sodium Potassium Chloride Carbon Dioxide BUN Creatinine Glucose POC Glucose 117 H 121 H 118 H Lactic Acid Calcium Ionized Calcium Phosphorus Magnesium Direct Bilirubin AST ALT Alkaline Phosphatase Lactate Dehydrogenase Troponin T C-Reactive Protein Total Protein Albumin Prealbumin Triglycerides Cholesterol LDL Cholesterol Direct HDL Cholesterol 25-OH Vitamin D Total PTH Intact Urine pH Urine WBC (Auto) Urine Creatinine Urine Total Protein Fluid Total Protein Vancomycin Trough Rheumatoid Factor Complement C4 Miscellaneous Test Crossmatch 10/28/16 10/28/16 10/28/16 05:48 06:45 06:45 WBC 14.7 H RBC 3.05 L Hgb 9.0 L Hct 26.9 L MCV MCH MCHC RDW 16.8 H Plt Count Lymph % (Auto) 8.2 L [place] % (Auto) 8.4 H Lymph # [place] # 1.2 H Baso # Seg Neutrophils % 81.9 H Seg Neuts % (Manual) Lymphocytes % (Manual) Monocytes % (Manual) Eosinophils % (Manual) Basophils % (Manual) Nucleated RBC % Seg Neutrophils # 12.1 H Seg Neutrophils # Man Lymphocytes # (Manual) Monocytes # (Manual) Eosinophils # (Manual) Basophils # (Manual) PT INR Fibrinogen dRVVT Confirm Interp Factor V Activity POC ABG pH POC ABG pCO2 POC ABG pO2 ABG pO2 ABG HCO3 ABG Base Excess ABG Hemoglobin Oxyhemoglobin Sodium Potassium Chloride Carbon Dioxide BUN 60 H Creatinine 1.9 H Glucose 120 H POC Glucose 114 H Lactic Acid Calcium Ionized Calcium Phosphorus Magnesium Direct Bilirubin AST ALT Alkaline Phosphatase Lactate Dehydrogenase Troponin T C-Reactive Protein Total Protein Albumin Prealbumin Triglycerides Cholesterol LDL Cholesterol Direct HDL Cholesterol 25-OH Vitamin D Total PTH Intact Urine pH Urine WBC (Auto) Urine Creatinine Urine Total Protein Fluid Total Protein Vancomycin Trough Rheumatoid Factor Complement C4 Miscellaneous Test Crossmatch 10/28/16 10/28/16 10/29/16 17:08 23:50 05:10 WBC RBC Hgb Hct MCV MCH MCHC RDW Plt Count Lymph % (Auto) [place] % (Auto) Lymph # [place] # Baso # Seg Neutrophils % Seg Neuts % (Manual) Lymphocytes % (Manual) Monocytes % (Manual) Eosinophils % (Manual) Basophils % (Manual) Nucleated RBC % Seg Neutrophils # Seg Neutrophils # Man Lymphocytes # (Manual) Monocytes # (Manual) Eosinophils # (Manual) Basophils # (Manual) PT INR Fibrinogen dRVVT Confirm Interp Factor V Activity POC ABG pH POC ABG pCO2 POC ABG pO2 ABG pO2 ABG HCO3 ABG Base Excess ABG Hemoglobin Oxyhemoglobin Sodium Potassium Chloride Carbon Dioxide BUN Creatinine Glucose POC Glucose 109 H 110 H 124 H Lactic Acid Calcium Ionized Calcium Phosphorus Magnesium Direct Bilirubin AST ALT Alkaline Phosphatase Lactate Dehydrogenase Troponin T C-Reactive Protein Total Protein Albumin Prealbumin Triglycerides Cholesterol LDL Cholesterol Direct HDL Cholesterol 25-OH Vitamin D Total PTH Intact Urine pH Urine WBC (Auto) Urine Creatinine Urine Total Protein Fluid Total Protein Vancomycin Trough Rheumatoid Factor Complement C4 Miscellaneous Test Crossmatch 10/29/16 10/29/16 10/29/16 07:45 07:45 12:19 WBC 14.7 H RBC 3.15 L Hgb 9.3 L Hct 28.9 L MCV MCH MCHC RDW 17.0 H Plt Count Lymph % (Auto) 11.9 L [place] % (Auto) 8.6 H Lymph # [place] # 1.3 H Baso # Seg Neutrophils % 78.1 H Seg Neuts % (Manual) Lymphocytes % (Manual) Monocytes % (Manual) Eosinophils % (Manual) Basophils % (Manual) Nucleated RBC % Seg Neutrophils # 11.4 H Seg Neutrophils # Man Lymphocytes # (Manual) Monocytes # (Manual) Eosinophils # (Manual) Basophils # (Manual) PT INR Fibrinogen dRVVT Confirm Interp Factor V Activity POC ABG pH POC ABG pCO2 POC ABG pO2 ABG pO2 ABG HCO3 ABG Base Excess ABG Hemoglobin Oxyhemoglobin Sodium Potassium 5.1 H Chloride Carbon Dioxide 19 L BUN 78 H Creatinine 2.2 H Glucose 116 H POC Glucose 118 H Lactic Acid Calcium Ionized Calcium Phosphorus Magnesium Direct Bilirubin AST ALT Alkaline Phosphatase Lactate Dehydrogenase Troponin T C-Reactive Protein Total Protein Albumin Prealbumin Triglycerides Cholesterol LDL Cholesterol Direct HDL Cholesterol 25-OH Vitamin D Total PTH Intact Urine pH Urine WBC (Auto) Urine Creatinine Urine Total Protein Fluid Total Protein Vancomycin Trough Rheumatoid Factor Complement C4 Miscellaneous Test Crossmatch 10/29/16 10/30/16 10/30/16 17:49 01:52 03:28 WBC RBC Hgb Hct MCV MCH MCHC RDW Plt Count Lymph % (Auto) [place] % (Auto) Lymph # [place] # Baso # Seg Neutrophils % Seg Neuts % (Manual) Lymphocytes % (Manual) Monocytes % (Manual) Eosinophils % (Manual) Basophils % (Manual) Nucleated RBC % Seg Neutrophils # Seg Neutrophils # Man Lymphocytes # (Manual) Monocytes # (Manual) Eosinophils # (Manual) Basophils # (Manual) PT INR Fibrinogen dRVVT Confirm Interp Factor V Activity POC ABG pH POC ABG pCO2 POC ABG pO2 ABG pO2 ABG HCO3 ABG Base Excess ABG Hemoglobin Oxyhemoglobin Sodium Potassium 5.4 H Chloride 97.5 L Carbon Dioxide 19 L BUN 90 H Creatinine 2.5 H Glucose POC Glucose 120 H 129 H Lactic Acid Calcium Ionized Calcium Phosphorus 5.20 H Magnesium Direct Bilirubin AST ALT Alkaline Phosphatase Lactate Dehydrogenase Troponin T C-Reactive Protein Total Protein Albumin Prealbumin Triglycerides Cholesterol LDL Cholesterol Direct HDL Cholesterol 25-OH Vitamin D Total PTH Intact Urine pH Urine WBC (Auto) Urine Creatinine Urine Total Protein Fluid Total Protein Vancomycin Trough Rheumatoid Factor Complement C4 Miscellaneous Test Crossmatch 10/30/16 10/30/16 10/30/16 03:28 08:19 08:19 WBC 11.6 H 15.9 H RBC 2.75 L 2.82 L Hgb 7.9 L 8.3 L Hct 24.2 L 25.2 L MCV MCH MCHC RDW 16.7 H 17.2 H Plt Count Lymph % (Auto) [place] % (Auto) 9.8 H Lymph # [place] # 1.1 H Baso # Seg Neutrophils % 74.2 H Seg Neuts % (Manual) Lymphocytes % (Manual) Monocytes % (Manual) Eosinophils % (Manual) Basophils % (Manual) Nucleated RBC % Seg Neutrophils # 8.6 H Seg Neutrophils # Man Lymphocytes # (Manual) Monocytes # (Manual) Eosinophils # (Manual) Basophils # (Manual) PT INR Fibrinogen dRVVT Confirm Interp Factor V Activity POC ABG pH POC ABG pCO2 POC ABG pO2 ABG pO2 ABG HCO3 ABG Base Excess ABG Hemoglobin Oxyhemoglobin Sodium Potassium 5.3 H Chloride 97.4 L Carbon Dioxide 19 L BUN 93 H Creatinine 2.6 H Glucose POC Glucose Lactic Acid Calcium Ionized Calcium Phosphorus Magnesium Direct Bilirubin AST ALT Alkaline Phosphatase Lactate Dehydrogenase Troponin T C-Reactive Protein Total Protein Albumin Prealbumin Triglycerides Cholesterol LDL Cholesterol Direct HDL Cholesterol 25-OH Vitamin D Total PTH Intact Urine pH Urine WBC (Auto) Urine Creatinine Urine Total Protein Fluid Total Protein Vancomycin Trough Rheumatoid Factor Complement C4 Miscellaneous Test Crossmatch 10/30/16 10/30/16 10/31/16 17:11 23:56 00:40 WBC RBC Hgb Hct MCV MCH MCHC RDW Plt Count Lymph % (Auto) [place] % (Auto) Lymph # [place] # Baso # Seg Neutrophils % Seg Neuts % (Manual) Lymphocytes % (Manual) Monocytes % (Manual) Eosinophils % (Manual) Basophils % (Manual) Nucleated RBC % Seg Neutrophils # Seg Neutrophils # Man Lymphocytes # (Manual) Monocytes # (Manual) Eosinophils # (Manual) Basophils # (Manual) PT INR Fibrinogen dRVVT Confirm Interp Factor V Activity POC ABG pH POC ABG pCO2 POC ABG pO2 ABG pO2 ABG HCO3 ABG Base Excess ABG Hemoglobin Oxyhemoglobin Sodium Potassium Chloride Carbon Dioxide BUN Creatinine Glucose POC Glucose 106 H 117 H 120 H Lactic Acid Calcium Ionized Calcium Phosphorus Magnesium Direct Bilirubin AST ALT Alkaline Phosphatase Lactate Dehydrogenase Troponin T C-Reactive Protein Total Protein Albumin Prealbumin Triglycerides Cholesterol LDL Cholesterol Direct HDL Cholesterol 25-OH Vitamin D Total PTH Intact Urine pH Urine WBC (Auto) Urine Creatinine Urine Total Protein Fluid Total Protein Vancomycin Trough Rheumatoid Factor Complement C4 Miscellaneous Test Crossmatch 10/31/16 10/31/16 10/31/16 05:43 07:15 07:15 WBC 12.1 H RBC 2.63 L Hgb 7.7 L Hct 23.3 L MCV MCH MCHC RDW 16.7 H Plt Count Lymph % (Auto) 11.7 L [place] % (Auto) 7.7 H Lymph # [place] # 0.9 H Baso # Seg Neutrophils % 78.0 H Seg Neuts % (Manual) Lymphocytes % (Manual) Monocytes % (Manual) Eosinophils % (Manual) Basophils % (Manual) Nucleated RBC % Seg Neutrophils # 9.4 H Seg Neutrophils # Man Lymphocytes # (Manual) Monocytes # (Manual) Eosinophils # (Manual) Basophils # (Manual) PT INR Fibrinogen dRVVT Confirm Interp Factor V Activity POC ABG pH POC ABG pCO2 POC ABG pO2 ABG pO2 ABG HCO3 ABG Base Excess ABG Hemoglobin Oxyhemoglobin Sodium Potassium Chloride 96.4 L Carbon Dioxide 21 L BUN 99 H Creatinine 2.6 H Glucose 144 H POC Glucose 125 H Lactic Acid Calcium Ionized Calcium Phosphorus 4.80 H Magnesium Direct Bilirubin AST ALT Alkaline Phosphatase Lactate Dehydrogenase Troponin T C-Reactive Protein Total Protein Albumin Prealbumin Triglycerides Cholesterol LDL Cholesterol Direct HDL Cholesterol 25-OH Vitamin D Total PTH Intact Urine pH Urine WBC (Auto) Urine Creatinine Urine Total Protein Fluid Total Protein Vancomycin Trough Rheumatoid Factor Complement C4 Miscellaneous Test Crossmatch 10/31/16 10/31/16 11/01/16 11:46 18:34 00:20 WBC RBC Hgb Hct MCV MCH MCHC RDW Plt Count Lymph % (Auto) [place] % (Auto) Lymph # [place] # Baso # Seg Neutrophils % Seg Neuts % (Manual) Lymphocytes % (Manual) Monocytes % (Manual) Eosinophils % (Manual) Basophils % (Manual) Nucleated RBC % Seg Neutrophils # Seg Neutrophils # Man Lymphocytes # (Manual) Monocytes # (Manual) Eosinophils # (Manual) Basophils # (Manual) PT INR Fibrinogen dRVVT Confirm Interp Factor V Activity POC ABG pH POC ABG pCO2 POC ABG pO2 ABG pO2 ABG HCO3 ABG Base Excess ABG Hemoglobin Oxyhemoglobin Sodium Potassium Chloride Carbon Dioxide BUN Creatinine Glucose POC Glucose 159 H 140 H 132 H Lactic Acid Calcium Ionized Calcium Phosphorus Magnesium Direct Bilirubin AST ALT Alkaline Phosphatase Lactate Dehydrogenase Troponin T C-Reactive Protein Total Protein Albumin Prealbumin Triglycerides Cholesterol LDL Cholesterol Direct HDL Cholesterol 25-OH Vitamin D Total PTH Intact Urine pH Urine WBC (Auto) Urine Creatinine Urine Total Protein Fluid Total Protein Vancomycin Trough Rheumatoid Factor Complement C4 Miscellaneous Test Crossmatch 11/01/16 11/01/16 11/01/16 04:55 04:55 06:11 WBC 11.2 H RBC 2.68 L Hgb 7.5 L Hct 23.7 L MCV MCH MCHC RDW 16.1 H Plt Count Lymph % (Auto) [place] % (Auto) 9.8 H Lymph # [place] # 1.1 H Baso # Seg Neutrophils % 70.8 H Seg Neuts % (Manual) Lymphocytes % (Manual) Monocytes % (Manual) Eosinophils % (Manual) Basophils % (Manual) Nucleated RBC % Seg Neutrophils # 7.9 H Seg Neutrophils # Man Lymphocytes # (Manual) Monocytes # (Manual) Eosinophils # (Manual) Basophils # (Manual) PT INR Fibrinogen dRVVT Confirm Interp Factor V Activity POC ABG pH POC ABG pCO2 POC ABG pO2 ABG pO2 ABG HCO3 ABG Base Excess ABG Hemoglobin Oxyhemoglobin Sodium Potassium 3.3 L D Chloride Carbon Dioxide BUN 61 H Creatinine 1.9 H Glucose 114 H POC Glucose 115 H Lactic Acid Calcium Ionized Calcium Phosphorus 1.80 L D Magnesium Direct Bilirubin AST ALT Alkaline Phosphatase Lactate Dehydrogenase Troponin T C-Reactive Protein Total Protein Albumin Prealbumin Triglycerides Cholesterol LDL Cholesterol Direct HDL Cholesterol 25-OH Vitamin D Total PTH Intact Urine pH Urine WBC (Auto) Urine Creatinine Urine Total Protein Fluid Total Protein Vancomycin Trough Rheumatoid Factor Complement C4 Miscellaneous Test Crossmatch 11/01/16 11/01/16 11/01/16 12:29 18:23 23:58 WBC RBC Hgb Hct MCV MCH MCHC RDW Plt Count Lymph % (Auto) [place] % (Auto) Lymph # [place] # Baso # Seg Neutrophils % Seg Neuts % (Manual) Lymphocytes % (Manual) Monocytes % (Manual) Eosinophils % (Manual) Basophils % (Manual) Nucleated RBC % Seg Neutrophils # Seg Neutrophils # Man Lymphocytes # (Manual) Monocytes # (Manual) Eosinophils # (Manual) Basophils # (Manual) PT INR Fibrinogen dRVVT Confirm Interp Factor V Activity POC ABG pH POC ABG pCO2 POC ABG pO2 ABG pO2 ABG HCO3 ABG Base Excess ABG Hemoglobin Oxyhemoglobin Sodium Potassium Chloride Carbon Dioxide BUN Creatinine Glucose POC Glucose 142 H 143 H 128 H Lactic Acid Calcium Ionized Calcium Phosphorus Magnesium Direct Bilirubin AST ALT Alkaline Phosphatase Lactate Dehydrogenase Troponin T C-Reactive Protein Total Protein Albumin Prealbumin Triglycerides Cholesterol LDL Cholesterol Direct HDL Cholesterol 25-OH Vitamin D Total PTH Intact Urine pH Urine WBC (Auto) Urine Creatinine Urine Total Protein Fluid Total Protein Vancomycin Trough Rheumatoid Factor Complement C4 Miscellaneous Test Crossmatch 11/02/16 11/02/16 11/02/16 04:16 05:29 11:58 WBC RBC Hgb Hct MCV MCH MCHC RDW Plt Count Lymph % (Auto) [place] % (Auto) Lymph # [place] # Baso # Seg Neutrophils % Seg Neuts % (Manual) Lymphocytes % (Manual) Monocytes % (Manual) Eosinophils % (Manual) Basophils % (Manual) Nucleated RBC % Seg Neutrophils # Seg Neutrophils # Man Lymphocytes # (Manual) Monocytes # (Manual) Eosinophils # (Manual) Basophils # (Manual) PT INR Fibrinogen dRVVT Confirm Interp Factor V Activity POC ABG pH POC ABG pCO2 POC ABG pO2 ABG pO2 ABG HCO3 ABG Base Excess ABG Hemoglobin Oxyhemoglobin Sodium Potassium 3.1 L Chloride Carbon Dioxide BUN 73 H Creatinine 2.3 H Glucose 112 H POC Glucose 135 H 149 H Lactic Acid Calcium Ionized Calcium Phosphorus Magnesium Direct Bilirubin AST ALT Alkaline Phosphatase Lactate Dehydrogenase Troponin T C-Reactive Protein Total Protein Albumin Prealbumin Triglycerides Cholesterol LDL Cholesterol Direct HDL Cholesterol 25-OH Vitamin D Total PTH Intact Urine pH Urine WBC (Auto) Urine Creatinine Urine Total Protein Fluid Total Protein Vancomycin Trough Rheumatoid Factor Complement C4 Miscellaneous Test Crossmatch 11/02/16 11/02/16 11/03/16 17:42 22:54 06:00 WBC RBC Hgb Hct MCV MCH MCHC RDW Plt Count Lymph % (Auto) [place] % (Auto) Lymph # [place] # Baso # Seg Neutrophils % Seg Neuts % (Manual) Lymphocytes % (Manual) Monocytes % (Manual) Eosinophils % (Manual) Basophils % (Manual) Nucleated RBC % Seg Neutrophils # Seg Neutrophils # Man Lymphocytes # (Manual) Monocytes # (Manual) Eosinophils # (Manual) Basophils # (Manual) PT INR Fibrinogen dRVVT Confirm Interp Factor V Activity POC ABG pH POC ABG pCO2 POC ABG pO2 ABG pO2 ABG HCO3 ABG Base Excess ABG Hemoglobin Oxyhemoglobin Sodium Potassium Chloride 96.7 L Carbon Dioxide BUN 41 H Creatinine 1.5 H Glucose 145 H POC Glucose 182 H 115 H Lactic Acid Calcium Ionized Calcium Phosphorus 1.60 L D Magnesium 1.50 L Direct Bilirubin AST ALT Alkaline Phosphatase Lactate Dehydrogenase Troponin T C-Reactive Protein Total Protein Albumin Prealbumin Triglycerides Cholesterol LDL Cholesterol Direct HDL Cholesterol 25-OH Vitamin D Total PTH Intact Urine pH Urine WBC (Auto) Urine Creatinine Urine Total Protein Fluid Total Protein Vancomycin Trough Rheumatoid Factor Complement C4 Miscellaneous Test Crossmatch 11/03/16 11/03/16 11/03/16 11:53 17:45 23:37 WBC RBC Hgb Hct MCV MCH MCHC RDW Plt Count Lymph % (Auto) [place] % (Auto) Lymph # [place] # Baso # Seg Neutrophils % Seg Neuts % (Manual) Lymphocytes % (Manual) Monocytes % (Manual) Eosinophils % (Manual) Basophils % (Manual) Nucleated RBC % Seg Neutrophils # Seg Neutrophils # Man Lymphocytes # (Manual) Monocytes # (Manual) Eosinophils # (Manual) Basophils # (Manual) PT INR Fibrinogen dRVVT Confirm Interp Factor V Activity POC ABG pH POC ABG pCO2 POC ABG pO2 ABG pO2 ABG HCO3 ABG Base Excess ABG Hemoglobin Oxyhemoglobin Sodium Potassium Chloride Carbon Dioxide BUN Creatinine Glucose POC Glucose 131 H 134 H 113 H Lactic Acid Calcium Ionized Calcium Phosphorus Magnesium Direct Bilirubin AST ALT Alkaline Phosphatase Lactate Dehydrogenase Troponin T C-Reactive Protein Total Protein Albumin Prealbumin Triglycerides Cholesterol LDL Cholesterol Direct HDL Cholesterol 25-OH Vitamin D Total PTH Intact Urine pH Urine WBC (Auto) Urine Creatinine Urine Total Protein Fluid Total Protein Vancomycin Trough Rheumatoid Factor Complement C4 Miscellaneous Test Crossmatch 11/04/16 11/04/16 11/04/16 05:41 06:00 12:10 WBC RBC Hgb Hct MCV MCH MCHC RDW Plt Count Lymph % (Auto) [place] % (Auto) Lymph # [place] # Baso # Seg Neutrophils % Seg Neuts % (Manual) Lymphocytes % (Manual) Monocytes % (Manual) Eosinophils % (Manual) Basophils % (Manual) Nucleated RBC % Seg Neutrophils # Seg Neutrophils # Man Lymphocytes # (Manual) Monocytes # (Manual) Eosinophils # (Manual) Basophils # (Manual) PT INR Fibrinogen dRVVT Confirm Interp Factor V Activity POC ABG pH POC ABG pCO2 POC ABG pO2 ABG pO2 ABG HCO3 ABG Base Excess ABG Hemoglobin Oxyhemoglobin Sodium Potassium Chloride 96.7 L Carbon Dioxide BUN 52 H Creatinine 1.9 H Glucose 126 H POC Glucose 137 H 191 H Lactic Acid Calcium Ionized Calcium Phosphorus Magnesium Direct Bilirubin AST ALT Alkaline Phosphatase Lactate Dehydrogenase Troponin T C-Reactive Protein Total Protein Albumin Prealbumin Triglycerides Cholesterol LDL Cholesterol Direct HDL Cholesterol 25-OH Vitamin D Total PTH Intact Urine pH Urine WBC (Auto) Urine Creatinine Urine Total Protein Fluid Total Protein Vancomycin Trough Rheumatoid Factor Complement C4 Miscellaneous Test Crossmatch 11/04/16 11/05/16 11/05/16 22:57 03:10 05:10 WBC RBC Hgb Hct MCV MCH MCHC RDW Plt Count Lymph % (Auto) [place] % (Auto) Lymph # [place] # Baso # Seg Neutrophils % Seg Neuts % (Manual) Lymphocytes % (Manual) Monocytes % (Manual) Eosinophils % (Manual) Basophils % (Manual) Nucleated RBC % Seg Neutrophils # Seg Neutrophils # Man Lymphocytes # (Manual) Monocytes # (Manual) Eosinophils # (Manual) Basophils # (Manual) PT INR Fibrinogen dRVVT Confirm Interp Factor V Activity POC ABG pH POC ABG pCO2 POC ABG pO2 ABG pO2 ABG HCO3 ABG Base Excess ABG Hemoglobin Oxyhemoglobin Sodium 136 L Potassium Chloride 97.2 L Carbon Dioxide BUN 32 H Creatinine 1.3 H Glucose 123 H POC Glucose 125 H 108 H Lactic Acid Calcium 7.8 L Ionized Calcium Phosphorus Magnesium Direct Bilirubin AST ALT Alkaline Phosphatase Lactate Dehydrogenase Troponin T C-Reactive Protein Total Protein Albumin Prealbumin Triglycerides Cholesterol LDL Cholesterol Direct HDL Cholesterol 25-OH Vitamin D Total PTH Intact Urine pH Urine WBC (Auto) Urine Creatinine Urine Total Protein Fluid Total Protein Vancomycin Trough Rheumatoid Factor Complement C4 Miscellaneous Test Crossmatch 11/05/16 11/05/16 11/05/16 12:23 13:09 13:25 WBC RBC Hgb Hct MCV MCH MCHC RDW Plt Count Lymph % (Auto) [place] % (Auto) Lymph # [place] # Baso # Seg Neutrophils % Seg Neuts % (Manual) Lymphocytes % (Manual) Monocytes % (Manual) Eosinophils % (Manual) Basophils % (Manual) Nucleated RBC % Seg Neutrophils # Seg Neutrophils # Man Lymphocytes # (Manual) Monocytes # (Manual) Eosinophils # (Manual) Basophils # (Manual) PT INR Fibrinogen dRVVT Confirm Interp Factor V Activity POC ABG pH POC ABG pCO2 POC ABG pO2 ABG pO2 ABG HCO3 ABG Base Excess ABG Hemoglobin Oxyhemoglobin Sodium Potassium Chloride Carbon Dioxide BUN Creatinine Glucose POC Glucose 124 H Lactic Acid Calcium Ionized Calcium Phosphorus Magnesium Direct Bilirubin AST ALT Alkaline Phosphatase Lactate Dehydrogenase Troponin T C-Reactive Protein 11.40 H Total Protein Albumin Prealbumin Triglycerides Cholesterol LDL Cholesterol Direct HDL Cholesterol 25-OH Vitamin D Total PTH Intact Urine pH 9.0 H Urine WBC (Auto) Urine Creatinine Urine Total Protein Fluid Total Protein Vancomycin Trough Rheumatoid Factor Complement C4 Miscellaneous Test Crossmatch 11/05/16 11/05/16 11/05/16 13:25 17:54 23:42 WBC RBC Hgb Hct MCV MCH MCHC RDW Plt Count Lymph % (Auto) [place] % (Auto) Lymph # [place] # Baso # Seg Neutrophils % Seg Neuts % (Manual) Lymphocytes % (Manual) Monocytes % (Manual) Eosinophils % (Manual) Basophils % (Manual) Nucleated RBC % Seg Neutrophils # Seg Neutrophils # Man Lymphocytes # (Manual) Monocytes # (Manual) Eosinophils # (Manual) Basophils # (Manual) PT INR Fibrinogen dRVVT Confirm Interp Factor V Activity POC ABG pH POC ABG pCO2 POC ABG pO2 ABG pO2 ABG HCO3 ABG Base Excess ABG Hemoglobin Oxyhemoglobin Sodium Potassium Chloride Carbon Dioxide BUN Creatinine Glucose POC Glucose 114 H 134 H Lactic Acid Calcium Ionized Calcium Phosphorus Magnesium Direct Bilirubin AST ALT Alkaline Phosphatase Lactate Dehydrogenase Troponin T C-Reactive Protein Total Protein Albumin Prealbumin Triglycerides Cholesterol LDL Cholesterol Direct HDL Cholesterol 25-OH Vitamin D Total PTH Intact Urine pH Urine WBC (Auto) Urine Creatinine Urine Total Protein Fluid Total Protein Vancomycin Trough Rheumatoid Factor Complement C4 Miscellaneous Test Flexitest 1 H Crossmatch 11/06/16 11/06/16 11/06/16 04:56 06:25 06:25 WBC RBC 2.50 L Hgb 7.3 L Hct 22.5 L MCV MCH MCHC RDW 16.9 H Plt Count Lymph % (Auto) [place] % (Auto) 10.5 H Lymph # [place] # 1.1 H Baso # Seg Neutrophils % Seg Neuts % (Manual) Lymphocytes % (Manual) Monocytes % (Manual) Eosinophils % (Manual) Basophils % (Manual) Nucleated RBC % Seg Neutrophils # Seg Neutrophils # Man Lymphocytes # (Manual) Monocytes # (Manual) Eosinophils # (Manual) Basophils # (Manual) PT INR Fibrinogen dRVVT Confirm Interp Factor V Activity POC ABG pH POC ABG pCO2 POC ABG pO2 ABG pO2 ABG HCO3 ABG Base Excess ABG Hemoglobin Oxyhemoglobin Sodium Potassium 5.1 H Chloride 95.9 L Carbon Dioxide BUN 52 H Creatinine 1.8 H Glucose 117 H POC Glucose 120 H Lactic Acid Calcium Ionized Calcium Phosphorus Magnesium Direct Bilirubin AST 103 H ALT 77 H Alkaline Phosphatase 285 H Lactate Dehydrogenase Troponin T C-Reactive Protein Total Protein 6.2 L Albumin 1.8 L Prealbumin 0.180 L Triglycerides Cholesterol LDL Cholesterol Direct HDL Cholesterol 25-OH Vitamin D Total PTH Intact Urine pH Urine WBC (Auto) Urine Creatinine Urine Total Protein Fluid Total Protein Vancomycin Trough Rheumatoid Factor Complement C4 Miscellaneous Test Crossmatch 11/06/16 11/06/16 11/06/16 11:56 17:14 23:52 WBC RBC Hgb Hct MCV MCH MCHC RDW Plt Count Lymph % (Auto) [place] % (Auto) Lymph # [place] # Baso # Seg Neutrophils % Seg Neuts % (Manual) Lymphocytes % (Manual) Monocytes % (Manual) Eosinophils % (Manual) Basophils % (Manual) Nucleated RBC % Seg Neutrophils # Seg Neutrophils # Man Lymphocytes # (Manual) Monocytes # (Manual) Eosinophils # (Manual) Basophils # (Manual) PT INR Fibrinogen dRVVT Confirm Interp Factor V Activity POC ABG pH POC ABG pCO2 POC ABG pO2 ABG pO2 ABG HCO3 ABG Base Excess ABG Hemoglobin Oxyhemoglobin Sodium Potassium Chloride Carbon Dioxide BUN Creatinine Glucose POC Glucose 141 H 125 H 130 H Lactic Acid Calcium Ionized Calcium Phosphorus Magnesium Direct Bilirubin AST ALT Alkaline Phosphatase Lactate Dehydrogenase Troponin T C-Reactive Protein Total Protein Albumin Prealbumin Triglycerides Cholesterol LDL Cholesterol Direct HDL Cholesterol 25-OH Vitamin D Total PTH Intact Urine pH Urine WBC (Auto) Urine Creatinine Urine Total Protein Fluid Total Protein Vancomycin Trough Rheumatoid Factor Complement C4 Miscellaneous Test Crossmatch 11/07/16 11/07/16 11/07/16 06:30 06:30 09:37 WBC RBC 2.18 L Hgb 6.3 L Hct 19.7 L* MCV MCH MCHC RDW 16.8 H Plt Count Lymph % (Auto) [place] % (Auto) 10.0 H Lymph # [place] # 1.0 H Baso # Seg Neutrophils % Seg Neuts % (Manual) Lymphocytes % (Manual) Monocytes % (Manual) Eosinophils % (Manual) Basophils % (Manual) Nucleated RBC % Seg Neutrophils # Seg Neutrophils # Man Lymphocytes # (Manual) Monocytes # (Manual) Eosinophils # (Manual) Basophils # (Manual) PT INR Fibrinogen dRVVT Confirm Interp Factor V Activity POC ABG pH POC ABG pCO2 POC ABG pO2 ABG pO2 ABG HCO3 ABG Base Excess ABG Hemoglobin Oxyhemoglobin Sodium 135 L Potassium Chloride 95.6 L Carbon Dioxide BUN 70 H Creatinine 2.0 H Glucose 126 H POC Glucose Lactic Acid Calcium Ionized Calcium Phosphorus Magnesium Direct Bilirubin AST ALT Alkaline Phosphatase Lactate Dehydrogenase Troponin T C-Reactive Protein Total Protein Albumin Prealbumin Triglycerides Cholesterol LDL Cholesterol Direct HDL Cholesterol 25-OH Vitamin D Total PTH Intact Urine pH Urine WBC (Auto) Urine Creatinine Urine Total Protein Fluid Total Protein Vancomycin Trough Rheumatoid Factor Complement C4 Miscellaneous Test Crossmatch See Detail 11/07/16 11/07/16 11/07/16 12:52 18:51 21:26 WBC RBC Hgb Hct MCV MCH MCHC RDW Plt Count Lymph % (Auto) [place] % (Auto) Lymph # [place] # Baso # Seg Neutrophils % Seg Neuts % (Manual) Lymphocytes % (Manual) Monocytes % (Manual) Eosinophils % (Manual) Basophils % (Manual) Nucleated RBC % Seg Neutrophils # Seg Neutrophils # Man Lymphocytes # (Manual) Monocytes # (Manual) Eosinophils # (Manual) Basophils # (Manual) PT INR Fibrinogen dRVVT Confirm Interp Factor V Activity POC ABG pH 7.523 H POC ABG pCO2 34.6 L POC ABG pO2 53 L ABG pO2 ABG HCO3 ABG Base Excess ABG Hemoglobin Oxyhemoglobin Sodium Potassium Chloride Carbon Dioxide BUN Creatinine Glucose POC Glucose 142 H 155 H Lactic Acid Calcium Ionized Calcium Phosphorus Magnesium Direct Bilirubin AST ALT Alkaline Phosphatase Lactate Dehydrogenase Troponin T C-Reactive Protein Total Protein Albumin Prealbumin Triglycerides Cholesterol LDL Cholesterol Direct HDL Cholesterol 25-OH Vitamin D Total PTH Intact Urine pH Urine WBC (Auto) Urine Creatinine Urine Total Protein Fluid Total Protein Vancomycin Trough Rheumatoid Factor Complement C4 Miscellaneous Test Crossmatch 11/07/16 11/08/16 11/08/16 21:34 13:03 23:37 WBC RBC 2.63 L Hgb 7.7 L Hct 22.7 L MCV MCH MCHC RDW 17.0 H Plt Count Lymph % (Auto) [place] % (Auto) Lymph # [place] # Baso # Seg Neutrophils % Seg Neuts % (Manual) Lymphocytes % (Manual) Monocytes % (Manual) Eosinophils % (Manual) Basophils % (Manual) Nucleated RBC % Seg Neutrophils # Seg Neutrophils # Man Lymphocytes # (Manual) Monocytes # (Manual) Eosinophils # (Manual) Basophils # (Manual) PT INR Fibrinogen dRVVT Confirm Interp Factor V Activity POC ABG pH 7.478 H POC ABG pCO2 34.0 L POC ABG pO2 50 L ABG pO2 ABG HCO3 ABG Base Excess ABG Hemoglobin Oxyhemoglobin Sodium Potassium Chloride Carbon Dioxide BUN Creatinine Glucose POC Glucose 113 H Lactic Acid Calcium Ionized Calcium Phosphorus Magnesium Direct Bilirubin AST ALT Alkaline Phosphatase Lactate Dehydrogenase Troponin T C-Reactive Protein Total Protein Albumin Prealbumin Triglycerides Cholesterol LDL Cholesterol Direct HDL Cholesterol 25-OH Vitamin D Total PTH Intact Urine pH Urine WBC (Auto) Urine Creatinine Urine Total Protein Fluid Total Protein Vancomycin Trough Rheumatoid Factor Complement C4 Miscellaneous Test Crossmatch 11/09/16 11/09/16 11/09/16 04:35 10:15 18:21 WBC RBC 2.68 L Hgb 7.8 L Hct 23.3 L MCV MCH MCHC RDW 17.0 H Plt Count Lymph % (Auto) [place] % (Auto) 12.1 H Lymph # [place] # 1.1 H Baso # Seg Neutrophils % Seg Neuts % (Manual) Lymphocytes % (Manual) Monocytes % (Manual) Eosinophils % (Manual) Basophils % (Manual) Nucleated RBC % Seg Neutrophils # Seg Neutrophils # Man Lymphocytes # (Manual) Monocytes # (Manual) Eosinophils # (Manual) Basophils # (Manual) PT INR Fibrinogen dRVVT Confirm Interp Factor V Activity POC ABG pH POC ABG pCO2 POC ABG pO2 ABG pO2 ABG HCO3 ABG Base Excess ABG Hemoglobin Oxyhemoglobin Sodium Potassium Chloride Carbon Dioxide BUN 51 H Creatinine 1.8 H Glucose POC Glucose 60 L Lactic Acid Calcium 8.3 L Ionized Calcium Phosphorus Magnesium Direct Bilirubin AST ALT Alkaline Phosphatase Lactate Dehydrogenase Troponin T C-Reactive Protein Total Protein Albumin Prealbumin Triglycerides Cholesterol LDL Cholesterol Direct HDL Cholesterol 25-OH Vitamin D Total PTH Intact Urine pH Urine WBC (Auto) Urine Creatinine Urine Total Protein Fluid Total Protein Vancomycin Trough Rheumatoid Factor Complement C4 Miscellaneous Test Crossmatch 11/09/16 11/10/16 11/10/16 18:55 07:00 11:51 WBC RBC Hgb Hct MCV MCH MCHC RDW Plt Count Lymph % (Auto) [place] % (Auto) Lymph # [place] # Baso # Seg Neutrophils % Seg Neuts % (Manual) Lymphocytes % (Manual) Monocytes % (Manual) Eosinophils % (Manual) Basophils % (Manual) Nucleated RBC % Seg Neutrophils # Seg Neutrophils # Man Lymphocytes # (Manual) Monocytes # (Manual) Eosinophils # (Manual) Basophils # (Manual) PT INR Fibrinogen dRVVT Confirm Interp Factor V Activity POC ABG pH POC ABG pCO2 POC ABG pO2 ABG pO2 ABG HCO3 ABG Base Excess ABG Hemoglobin Oxyhemoglobin Sodium Potassium 3.0 L D Chloride 97.4 L Carbon Dioxide BUN 28 H Creatinine 1.3 H Glucose POC Glucose 68 L 120 H Lactic Acid Calcium 7.8 L Ionized Calcium Phosphorus Magnesium Direct Bilirubin AST ALT Alkaline Phosphatase Lactate Dehydrogenase Troponin T C-Reactive Protein Total Protein Albumin Prealbumin Triglycerides Cholesterol LDL Cholesterol Direct HDL Cholesterol 25-OH Vitamin D Total PTH Intact Urine pH Urine WBC (Auto) Urine Creatinine Urine Total Protein Fluid Total Protein Vancomycin Trough Rheumatoid Factor Complement C4 Miscellaneous Test Crossmatch 11/10/16 11/11/16 11/11/16 14:20 06:59 06:59 WBC RBC 2.81 L Hgb 8.1 L Hct 24.4 L MCV MCH MCHC RDW 16.4 H Plt Count Lymph % (Auto) [place] % (Auto) 10.8 H Lymph # [place] # 1.0 H Baso # Seg Neutrophils % Seg Neuts % (Manual) Lymphocytes % (Manual) Monocytes % (Manual) Eosinophils % (Manual) Basophils % (Manual) Nucleated RBC % Seg Neutrophils # Seg Neutrophils # Man Lymphocytes # (Manual) Monocytes # (Manual) Eosinophils # (Manual) Basophils # (Manual) PT INR Fibrinogen dRVVT Confirm Interp Factor V Activity POC ABG pH POC ABG pCO2 POC ABG pO2 ABG pO2 ABG HCO3 ABG Base Excess ABG Hemoglobin Oxyhemoglobin Sodium Potassium Chloride Carbon Dioxide BUN Creatinine Glucose POC Glucose Lactic Acid Calcium Ionized Calcium Phosphorus Magnesium Direct Bilirubin AST ALT Alkaline Phosphatase Lactate Dehydrogenase 196 H Troponin T C-Reactive Protein Total Protein 6.1 L Albumin Prealbumin Triglycerides Cholesterol LDL Cholesterol Direct HDL Cholesterol 25-OH Vitamin D Total PTH Intact Urine pH Urine WBC (Auto) Urine Creatinine Urine Total Protein Fluid Total Protein < 3.0 L Vancomycin Trough Rheumatoid Factor Complement C4 Miscellaneous Test Crossmatch 11/11/16 11/11/16 11/12/16 06:59 09:50 04:00 WBC RBC Hgb Hct MCV MCH MCHC RDW Plt Count Lymph % (Auto) [place] % (Auto) Lymph # [place] # Baso # Seg Neutrophils % Seg Neuts % (Manual) Lymphocytes % (Manual) Monocytes % (Manual) Eosinophils % (Manual) Basophils % (Manual) Nucleated RBC % Seg Neutrophils # Seg Neutrophils # Man Lymphocytes # (Manual) Monocytes # (Manual) Eosinophils # (Manual) Basophils # (Manual) PT INR 1.18 H Fibrinogen dRVVT Confirm Interp Factor V Activity POC ABG pH POC ABG pCO2 POC ABG pO2 ABG pO2 ABG HCO3 ABG Base Excess ABG Hemoglobin Oxyhemoglobin Sodium 136 L 133 L Potassium Chloride 96.1 L 94.8 L Carbon Dioxide 21 L BUN 37 H 42 H Creatinine 1.8 H 2.0 H Glucose POC Glucose Lactic Acid Calcium Ionized Calcium Phosphorus Magnesium Direct Bilirubin AST ALT Alkaline Phosphatase Lactate Dehydrogenase Troponin T C-Reactive Protein Total Protein Albumin Prealbumin Triglycerides Cholesterol LDL Cholesterol Direct HDL Cholesterol 25-OH Vitamin D Total PTH Intact Urine pH Urine WBC (Auto) Urine Creatinine Urine Total Protein Fluid Total Protein Vancomycin Trough Rheumatoid Factor Complement C4 Miscellaneous Test Crossmatch 11/12/16 11/12/16 11/13/16 04:00 23:55 05:53 WBC RBC Hgb 8.9 L Hct 27.2 L MCV MCH MCHC RDW Plt Count Lymph % (Auto) [place] % (Auto) Lymph # [place] # Baso # Seg Neutrophils % Seg Neuts % (Manual) Lymphocytes % (Manual) Monocytes % (Manual) Eosinophils % (Manual) Basophils % (Manual) Nucleated RBC % Seg Neutrophils # Seg Neutrophils # Man Lymphocytes # (Manual) Monocytes # (Manual) Eosinophils # (Manual) Basophils # (Manual) PT INR Fibrinogen dRVVT Confirm Interp Factor V Activity POC ABG pH POC ABG pCO2 POC ABG pO2 ABG pO2 ABG HCO3 ABG Base Excess ABG Hemoglobin Oxyhemoglobin Sodium Potassium Chloride Carbon Dioxide BUN Creatinine Glucose POC Glucose 132 H 120 H Lactic Acid Calcium Ionized Calcium Phosphorus Magnesium Direct Bilirubin AST ALT Alkaline Phosphatase Lactate Dehydrogenase Troponin T C-Reactive Protein Total Protein Albumin Prealbumin Triglycerides Cholesterol LDL Cholesterol Direct HDL Cholesterol 25-OH Vitamin D Total PTH Intact Urine pH Urine WBC (Auto) Urine Creatinine Urine Total Protein Fluid Total Protein Vancomycin Trough Rheumatoid Factor Complement C4 Miscellaneous Test Crossmatch 11/13/16 11/13/16 11/13/16 11:43 17:09 23:41 WBC RBC Hgb Hct MCV MCH MCHC RDW Plt Count Lymph % (Auto) [place] % (Auto) Lymph # [place] # Baso # Seg Neutrophils % Seg Neuts % (Manual) Lymphocytes % (Manual) Monocytes % (Manual) Eosinophils % (Manual) Basophils % (Manual) Nucleated RBC % Seg Neutrophils # Seg Neutrophils # Man Lymphocytes # (Manual) Monocytes # (Manual) Eosinophils # (Manual) Basophils # (Manual) PT INR Fibrinogen dRVVT Confirm Interp Factor V Activity POC ABG pH POC ABG pCO2 POC ABG pO2 ABG pO2 ABG HCO3 ABG Base Excess ABG Hemoglobin Oxyhemoglobin Sodium Potassium Chloride Carbon Dioxide BUN Creatinine Glucose POC Glucose 114 H 113 H 108 H Lactic Acid Calcium Ionized Calcium Phosphorus Magnesium Direct Bilirubin AST ALT Alkaline Phosphatase Lactate Dehydrogenase Troponin T C-Reactive Protein Total Protein Albumin Prealbumin Triglycerides Cholesterol LDL Cholesterol Direct HDL Cholesterol 25-OH Vitamin D Total PTH Intact Urine pH Urine WBC (Auto) Urine Creatinine Urine Total Protein Fluid Total Protein Vancomycin Trough Rheumatoid Factor Complement C4 Miscellaneous Test Crossmatch 11/13/16 11/15/16 11/15/16 Unknown 00:37 03:30 WBC 11.2 H RBC 2.72 L Hgb 7.6 L Hct 23.4 L MCV MCH MCHC RDW 16.5 H Plt Count Lymph % (Auto) [place] % (Auto) Lymph # [place] # Baso # Seg Neutrophils % Seg Neuts % (Manual) Lymphocytes % (Manual) Monocytes % (Manual) Eosinophils % (Manual) Basophils % (Manual) Nucleated RBC % Seg Neutrophils # Seg Neutrophils # Man Lymphocytes # (Manual) Monocytes # (Manual) Eosinophils # (Manual) Basophils # (Manual) PT INR Fibrinogen dRVVT Confirm Interp Factor V Activity POC ABG pH POC ABG pCO2 POC ABG pO2 ABG pO2 ABG HCO3 ABG Base Excess ABG Hemoglobin Oxyhemoglobin Sodium 135 L Potassium Chloride 95.2 L Carbon Dioxide BUN 52 H Creatinine 2.2 H Glucose POC Glucose 108 H Lactic Acid Calcium Ionized Calcium Phosphorus Magnesium Direct Bilirubin AST ALT Alkaline Phosphatase Lactate Dehydrogenase Troponin T C-Reactive Protein Total Protein Albumin Prealbumin Triglycerides Cholesterol LDL Cholesterol Direct HDL Cholesterol 25-OH Vitamin D Total PTH Intact Urine pH Urine WBC (Auto) Urine Creatinine Urine Total Protein Fluid Total Protein Vancomycin Trough Rheumatoid Factor Complement C4 Miscellaneous Test Crossmatch 11/15/16 11/15/16 11/15/16 03:30 05:04 11:50 WBC RBC Hgb Hct MCV MCH MCHC RDW Plt Count Lymph % (Auto) [place] % (Auto) Lymph # [place] # Baso # Seg Neutrophils % Seg Neuts % (Manual) Lymphocytes % (Manual) Monocytes % (Manual) Eosinophils % (Manual) Basophils % (Manual) Nucleated RBC % Seg Neutrophils # Seg Neutrophils # Man Lymphocytes # (Manual) Monocytes # (Manual) Eosinophils # (Manual) Basophils # (Manual) PT INR Fibrinogen dRVVT Confirm Interp Factor V Activity POC ABG pH POC ABG pCO2 POC ABG pO2 ABG pO2 ABG HCO3 ABG Base Excess ABG Hemoglobin Oxyhemoglobin Sodium Potassium 3.4 L Chloride Carbon Dioxide BUN 25 H Creatinine 1.5 H Glucose 103 H POC Glucose 121 H 144 H Lactic Acid Calcium Ionized Calcium Phosphorus Magnesium Direct Bilirubin AST ALT Alkaline Phosphatase Lactate Dehydrogenase Troponin T C-Reactive Protein Total Protein Albumin Prealbumin Triglycerides Cholesterol LDL Cholesterol Direct HDL Cholesterol 25-OH Vitamin D Total PTH Intact Urine pH Urine WBC (Auto) Urine Creatinine Urine Total Protein Fluid Total Protein Vancomycin Trough Rheumatoid Factor Complement C4 Miscellaneous Test Crossmatch 11/15/16 11/15/16 11/16/16 21:28 23:20 11:44 WBC RBC Hgb Hct MCV MCH MCHC RDW Plt Count Lymph % (Auto) [place] % (Auto) Lymph # [place] # Baso # Seg Neutrophils % Seg Neuts % (Manual) Lymphocytes % (Manual) Monocytes % (Manual) Eosinophils % (Manual) Basophils % (Manual) Nucleated RBC % Seg Neutrophils # Seg Neutrophils # Man Lymphocytes # (Manual) Monocytes # (Manual) Eosinophils # (Manual) Basophils # (Manual) PT INR Fibrinogen dRVVT Confirm Interp Factor V Activity POC ABG pH 7.462 H POC ABG pCO2 POC ABG pO2 71 L ABG pO2 ABG HCO3 ABG Base Excess ABG Hemoglobin Oxyhemoglobin Sodium Potassium Chloride Carbon Dioxide BUN Creatinine Glucose POC Glucose 116 H 133 H Lactic Acid Calcium Ionized Calcium Phosphorus Magnesium Direct Bilirubin AST ALT Alkaline Phosphatase Lactate Dehydrogenase Troponin T C-Reactive Protein Total Protein Albumin Prealbumin Triglycerides Cholesterol LDL Cholesterol Direct HDL Cholesterol 25-OH Vitamin D Total PTH Intact Urine pH Urine WBC (Auto) Urine Creatinine Urine Total Protein Fluid Total Protein Vancomycin Trough Rheumatoid Factor Complement C4 Miscellaneous Test Crossmatch 11/16/16 11/16/16 11/16/16 12:20 17:05 23:35 WBC 11.7 H RBC 2.73 L Hgb 7.6 L Hct 23.7 L MCV MCH MCHC RDW 16.6 H Plt Count Lymph % (Auto) [place] % (Auto) Lymph # [place] # Baso # Seg Neutrophils % Seg Neuts % (Manual) Lymphocytes % (Manual) Monocytes % (Manual) Eosinophils % (Manual) Basophils % (Manual) Nucleated RBC % Seg Neutrophils # Seg Neutrophils # Man Lymphocytes # (Manual) Monocytes # (Manual) Eosinophils # (Manual) Basophils # (Manual) PT INR Fibrinogen dRVVT Confirm Interp Factor V Activity POC ABG pH POC ABG pCO2 POC ABG pO2 ABG pO2 ABG HCO3 ABG Base Excess ABG Hemoglobin Oxyhemoglobin Sodium Potassium Chloride Carbon Dioxide BUN Creatinine Glucose POC Glucose 154 H 125 H Lactic Acid Calcium Ionized Calcium Phosphorus Magnesium Direct Bilirubin AST ALT Alkaline Phosphatase Lactate Dehydrogenase Troponin T C-Reactive Protein Total Protein Albumin Prealbumin Triglycerides Cholesterol LDL Cholesterol Direct HDL Cholesterol 25-OH Vitamin D Total PTH Intact Urine pH Urine WBC (Auto) Urine Creatinine Urine Total Protein Fluid Total Protein Vancomycin Trough Rheumatoid Factor Complement C4 Miscellaneous Test Crossmatch 11/17/16 11/17/16 11/17/16 03:20 03:20 03:20 WBC RBC 2.55 L Hgb 7.3 L Hct 21.9 L MCV MCH MCHC RDW 16.6 H Plt Count Lymph % (Auto) [place] % (Auto) 11.5 H Lymph # [place] # 1.1 H Baso # Seg Neutrophils % Seg Neuts % (Manual) Lymphocytes % (Manual) Monocytes % (Manual) Eosinophils % (Manual) Basophils % (Manual) Nucleated RBC % Seg Neutrophils # Seg Neutrophils # Man Lymphocytes # (Manual) Monocytes # (Manual) Eosinophils # (Manual) Basophils # (Manual) PT 16.8 H INR 1.37 H Fibrinogen dRVVT Confirm Interp Factor V Activity POC ABG pH POC ABG pCO2 POC ABG pO2 ABG pO2 ABG HCO3 ABG Base Excess ABG Hemoglobin Oxyhemoglobin Sodium Potassium 3.5 L Chloride Carbon Dioxide BUN 21 H Creatinine Glucose POC Glucose Lactic Acid Calcium 7.9 L Ionized Calcium Phosphorus Magnesium Direct Bilirubin AST ALT Alkaline Phosphatase Lactate Dehydrogenase Troponin T C-Reactive Protein Total Protein Albumin Prealbumin Triglycerides Cholesterol LDL Cholesterol Direct HDL Cholesterol 25-OH Vitamin D Total PTH Intact Urine pH Urine WBC (Auto) Urine Creatinine Urine Total Protein Fluid Total Protein Vancomycin Trough Rheumatoid Factor Complement C4 Miscellaneous Test Crossmatch 11/17/16 11/17/16 11/17/16 06:34 11:21 21:22 WBC RBC Hgb Hct MCV MCH MCHC RDW Plt Count Lymph % (Auto) [place] % (Auto) Lymph # [place] # Baso # Seg Neutrophils % Seg Neuts % (Manual) Lymphocytes % (Manual) Monocytes % (Manual) Eosinophils % (Manual) Basophils % (Manual) Nucleated RBC % Seg Neutrophils # Seg Neutrophils # Man Lymphocytes # (Manual) Monocytes # (Manual) Eosinophils # (Manual) Basophils # (Manual) PT INR Fibrinogen dRVVT Confirm Interp Factor V Activity POC ABG pH 7.467 H POC ABG pCO2 POC ABG pO2 73 L ABG pO2 ABG HCO3 ABG Base Excess ABG Hemoglobin Oxyhemoglobin Sodium Potassium Chloride Carbon Dioxide BUN Creatinine Glucose POC Glucose 121 H 119 H Lactic Acid Calcium Ionized Calcium Phosphorus Magnesium Direct Bilirubin AST ALT Alkaline Phosphatase Lactate Dehydrogenase Troponin T C-Reactive Protein Total Protein Albumin Prealbumin Triglycerides Cholesterol LDL Cholesterol Direct HDL Cholesterol 25-OH Vitamin D Total PTH Intact Urine pH Urine WBC (Auto) Urine Creatinine Urine Total Protein Fluid Total Protein Vancomycin Trough Rheumatoid Factor Complement C4 Miscellaneous Test Crossmatch 11/18/16 11/18/1617 12:16 17:19 00:00 WBC RBC Hgb Hct MCV MCH MCHC RDW Plt Count Lymph % (Auto) [place] % (Auto) Lymph # [place] # Baso # Seg Neutrophils % Seg Neuts % (Manual) Lymphocytes % (Manual) Monocytes % (Manual) Eosinophils % (Manual) Basophils % (Manual) Nucleated RBC % Seg Neutrophils # Seg Neutrophils # Man Lymphocytes # (Manual) Monocytes # (Manual) Eosinophils # (Manual) Basophils # (Manual) PT INR Fibrinogen dRVVT Confirm Interp Factor V Activity POC ABG pH POC ABG pCO2 POC ABG pO2 ABG pO2 ABG HCO3 ABG Base Excess ABG Hemoglobin Oxyhemoglobin Sodium Potassium Chloride Carbon Dioxide BUN Creatinine Glucose POC Glucose 124 H 162 H 139 H Lactic Acid Calcium Ionized Calcium Phosphorus Magnesium Direct Bilirubin AST ALT Alkaline Phosphatase Lactate Dehydrogenase Troponin T C-Reactive Protein Total Protein Albumin Prealbumin Triglycerides Cholesterol LDL Cholesterol Direct HDL Cholesterol 25-OH Vitamin D Total PTH Intact Urine pH Urine WBC (Auto) Urine Creatinine Urine Total Protein Fluid Total Protein Vancomycin Trough Rheumatoid Factor Complement C4 Miscellaneous Test Crossmatch 11/19/16 11/19/16 11/20/16 05:00 12:43 00:40 WBC RBC Hgb Hct MCV MCH MCHC RDW Plt Count Lymph % (Auto) [place] % (Auto) Lymph # [place] # Baso # Seg Neutrophils % Seg Neuts % (Manual) Lymphocytes % (Manual) Monocytes % (Manual) Eosinophils % (Manual) Basophils % (Manual) Nucleated RBC % Seg Neutrophils # Seg Neutrophils # Man Lymphocytes # (Manual) Monocytes # (Manual) Eosinophils # (Manual) Basophils # (Manual) PT INR Fibrinogen dRVVT Confirm Interp Factor V Activity POC ABG pH POC ABG pCO2 POC ABG pO2 ABG pO2 ABG HCO3 ABG Base Excess ABG Hemoglobin Oxyhemoglobin Sodium Potassium Chloride Carbon Dioxide BUN Creatinine Glucose POC Glucose 110 H 125 H 136 H Lactic Acid Calcium Ionized Calcium Phosphorus Magnesium Direct Bilirubin AST ALT Alkaline Phosphatase Lactate Dehydrogenase Troponin T C-Reactive Protein Total Protein Albumin Prealbumin Triglycerides Cholesterol LDL Cholesterol Direct HDL Cholesterol 25-OH Vitamin D Total PTH Intact Urine pH Urine WBC (Auto) Urine Creatinine Urine Total Protein Fluid Total Protein Vancomycin Trough Rheumatoid Factor Complement C4 Miscellaneous Test Crossmatch 11/20/16 11/20/16 11/20/16 05:00 05:00 05:51 WBC 13.1 H RBC 2.74 L Hgb 7.7 L Hct 23.6 L MCV MCH MCHC RDW 16.9 H Plt Count Lymph % (Auto) [place] % (Auto) 10.8 H Lymph # [place] # 1.4 H Baso # Seg Neutrophils % Seg Neuts % (Manual) Lymphocytes % (Manual) Monocytes % (Manual) Eosinophils % (Manual) Basophils % (Manual) Nucleated RBC % Seg Neutrophils # 7.9 H Seg Neutrophils # Man Lymphocytes # (Manual) Monocytes # (Manual) Eosinophils # (Manual) Basophils # (Manual) PT INR Fibrinogen dRVVT Confirm Interp Factor V Activity POC ABG pH POC ABG pCO2 POC ABG pO2 ABG pO2 ABG HCO3 ABG Base Excess ABG Hemoglobin Oxyhemoglobin Sodium Potassium Chloride Carbon Dioxide BUN 31 H Creatinine 1.8 H Glucose 129 H POC Glucose 133 H Lactic Acid Calcium Ionized Calcium Phosphorus Magnesium Direct Bilirubin AST ALT Alkaline Phosphatase Lactate Dehydrogenase Troponin T C-Reactive Protein Total Protein Albumin Prealbumin Triglycerides Cholesterol LDL Cholesterol Direct HDL Cholesterol 25-OH Vitamin D Total PTH Intact Urine pH Urine WBC (Auto) Urine Creatinine Urine Total Protein Fluid Total Protein Vancomycin Trough Rheumatoid Factor Complement C4 Miscellaneous Test Crossmatch 11/20/16 11/20/16 11/21/16 12:40 18:10 01:20 WBC RBC Hgb Hct MCV MCH MCHC RDW Plt Count Lymph % (Auto) [place] % (Auto) Lymph # [place] # Baso # Seg Neutrophils % Seg Neuts % (Manual) Lymphocytes % (Manual) Monocytes % (Manual) Eosinophils % (Manual) Basophils % (Manual) Nucleated RBC % Seg Neutrophils # Seg Neutrophils # Man Lymphocytes # (Manual) Monocytes # (Manual) Eosinophils # (Manual) Basophils # (Manual) PT INR Fibrinogen dRVVT Confirm Interp Factor V Activity POC ABG pH POC ABG pCO2 POC ABG pO2 ABG pO2 ABG HCO3 ABG Base Excess ABG Hemoglobin Oxyhemoglobin Sodium Potassium Chloride Carbon Dioxide BUN Creatinine Glucose POC Glucose 134 H 138 H 136 H Lactic Acid Calcium Ionized Calcium Phosphorus Magnesium Direct Bilirubin AST ALT Alkaline Phosphatase Lactate Dehydrogenase Troponin T C-Reactive Protein Total Protein Albumin Prealbumin Triglycerides Cholesterol LDL Cholesterol Direct HDL Cholesterol 25-OH Vitamin D Total PTH Intact Urine pH Urine WBC (Auto) Urine Creatinine Urine Total Protein Fluid Total Protein Vancomycin Trough Rheumatoid Factor Complement C4 Miscellaneous Test Crossmatch 11/21/16 11/21/16 11/21/16 07:04 07:45 07:45 WBC 22.0 H RBC 2.91 L Hgb 8.2 L Hct 25.4 L MCV MCH MCHC RDW 17.1 H Plt Count Lymph % (Auto) [place] % (Auto) Lymph # [place] # Baso # Seg Neutrophils % Seg Neuts % (Manual) Lymphocytes % (Manual) 8.0 L Monocytes % (Manual) Eosinophils % (Manual) Basophils % (Manual) Nucleated RBC % Seg Neutrophils # Seg Neutrophils # Man 14.7 H Lymphocytes # (Manual) Monocytes # (Manual) 1.1 H Eosinophils # (Manual) Basophils # (Manual) PT INR Fibrinogen dRVVT Confirm Interp Factor V Activity POC ABG pH POC ABG pCO2 POC ABG pO2 ABG pO2 ABG HCO3 ABG Base Excess ABG Hemoglobin Oxyhemoglobin Sodium Potassium Chloride Carbon Dioxide BUN 42 H Creatinine 2.0 H Glucose POC Glucose 108 H Lactic Acid Calcium Ionized Calcium Phosphorus Magnesium Direct Bilirubin AST ALT Alkaline Phosphatase Lactate Dehydrogenase Troponin T C-Reactive Protein Total Protein Albumin Prealbumin Triglycerides Cholesterol LDL Cholesterol Direct HDL Cholesterol 25-OH Vitamin D Total PTH Intact Urine pH Urine WBC (Auto) Urine Creatinine Urine Total Protein Fluid Total Protein Vancomycin Trough Rheumatoid Factor Complement C4 Miscellaneous Test Crossmatch 11/21/16 11/21/16 11/21/16 08:38 10:09 11:20 WBC RBC Hgb Hct MCV MCH MCHC RDW Plt Count Lymph % (Auto) [place] % (Auto) Lymph # [place] # Baso # Seg Neutrophils % Seg Neuts % (Manual) Lymphocytes % (Manual) Monocytes % (Manual) Eosinophils % (Manual) Basophils % (Manual) Nucleated RBC % Seg Neutrophils # Seg Neutrophils # Man Lymphocytes # (Manual) Monocytes # (Manual) Eosinophils # (Manual) Basophils # (Manual) PT INR Fibrinogen dRVVT Confirm Interp Factor V Activity POC ABG pH 7.346 L POC ABG pCO2 34.4 L POC ABG pO2 314 H ABG pO2 ABG HCO3 ABG Base Excess ABG Hemoglobin Oxyhemoglobin Sodium Potassium Chloride Carbon Dioxide BUN Creatinine Glucose POC Glucose 195 H 153 H Lactic Acid Calcium Ionized Calcium Phosphorus Magnesium Direct Bilirubin AST ALT Alkaline Phosphatase Lactate Dehydrogenase Troponin T C-Reactive Protein Total Protein Albumin Prealbumin Triglycerides Cholesterol LDL Cholesterol Direct HDL Cholesterol 25-OH Vitamin D Total PTH Intact Urine pH Urine WBC (Auto) Urine Creatinine Urine Total Protein Fluid Total Protein Vancomycin Trough Rheumatoid Factor Complement C4 Miscellaneous Test Crossmatch 11/21/16 11/22/16 11/22/16 23:37 04:48 05:00 WBC 29.7 H RBC 2.73 L Hgb 7.5 L Hct 24.2 L MCV MCH 27 L MCHC RDW 17.4 H Plt Count Lymph % (Auto) [place] % (Auto) Lymph # [place] # Baso # Seg Neutrophils % Seg Neuts % (Manual) Lymphocytes % (Manual) 7.0 L Monocytes % (Manual) Eosinophils % (Manual) Basophils % (Manual) Nucleated RBC % Seg Neutrophils # Seg Neutrophils # Man 15.4 H Lymphocytes # (Manual) Monocytes # (Manual) Eosinophils # (Manual) Basophils # (Manual) PT INR Fibrinogen dRVVT Confirm Interp Factor V Activity POC ABG pH POC ABG pCO2 24.6 L POC ABG pO2 189 H ABG pO2 ABG HCO3 ABG Base Excess ABG Hemoglobin Oxyhemoglobin Sodium Potassium Chloride Carbon Dioxide BUN Creatinine Glucose POC Glucose 65 L Lactic Acid Calcium Ionized Calcium Phosphorus Magnesium Direct Bilirubin AST ALT Alkaline Phosphatase Lactate Dehydrogenase Troponin T C-Reactive Protein Total Protein Albumin Prealbumin Triglycerides Cholesterol LDL Cholesterol Direct HDL Cholesterol 25-OH Vitamin D Total PTH Intact Urine pH Urine WBC (Auto) Urine Creatinine Urine Total Protein Fluid Total Protein Vancomycin Trough Rheumatoid Factor Complement C4 Miscellaneous Test Crossmatch 11/22/16 11/23/16 11/23/16 05:00 03:44 04:06 WBC RBC 2.52 L Hgb 7.2 L Hct 21.5 L MCV MCH MCHC RDW 17.1 H Plt Count Lymph % (Auto) [place] % (Auto) 12.4 H Lymph # [place] # 1.4 H Baso # Seg Neutrophils % Seg Neuts % (Manual) Lymphocytes % (Manual) Monocytes % (Manual) Eosinophils % (Manual) Basophils % (Manual) Nucleated RBC % Seg Neutrophils # Seg Neutrophils # Man Lymphocytes # (Manual) Monocytes # (Manual) Eosinophils # (Manual) Basophils # (Manual) PT INR Fibrinogen dRVVT Confirm Interp Factor V Activity POC ABG pH 7.493 H POC ABG pCO2 29.5 L POC ABG pO2 49 L ABG pO2 ABG HCO3 ABG Base Excess ABG Hemoglobin Oxyhemoglobin Sodium 134 L Potassium Chloride 95.9 L Carbon Dioxide 14 L D BUN 51 H Creatinine 2.6 H Glucose POC Glucose Lactic Acid Calcium Ionized Calcium Phosphorus Magnesium Direct Bilirubin AST ALT Alkaline Phosphatase Lactate Dehydrogenase Troponin T C-Reactive Protein Total Protein Albumin Prealbumin Triglycerides Cholesterol LDL Cholesterol Direct HDL Cholesterol 25-OH Vitamin D Total PTH Intact Urine pH Urine WBC (Auto) Urine Creatinine Urine Total Protein Fluid Total Protein Vancomycin Trough Rheumatoid Factor Complement C4 Miscellaneous Test Crossmatch 11/23/16 11/23/16 11/24/16 04:06 11:29 06:39 WBC RBC Hgb Hct MCV MCH MCHC RDW Plt Count Lymph % (Auto) [place] % (Auto) Lymph # [place] # Baso # Seg Neutrophils % Seg Neuts % (Manual) Lymphocytes % (Manual) Monocytes % (Manual) Eosinophils % (Manual) Basophils % (Manual) Nucleated RBC % Seg Neutrophils # Seg Neutrophils # Man Lymphocytes # (Manual) Monocytes # (Manual) Eosinophils # (Manual) Basophils # (Manual) PT INR Fibrinogen dRVVT Confirm Interp Factor V Activity POC ABG pH POC ABG pCO2 POC ABG pO2 ABG pO2 ABG HCO3 ABG Base Excess ABG Hemoglobin Oxyhemoglobin Sodium 136 L Potassium Chloride 95.2 L Carbon Dioxide BUN 60 H Creatinine 2.9 H Glucose POC Glucose 69 L 305 H Lactic Acid Calcium Ionized Calcium Phosphorus Magnesium 1.60 L Direct Bilirubin AST ALT Alkaline Phosphatase Lactate Dehydrogenase Troponin T C-Reactive Protein Total Protein Albumin Prealbumin Triglycerides Cholesterol LDL Cholesterol Direct HDL Cholesterol 25-OH Vitamin D Total PTH Intact Urine pH Urine WBC (Auto) Urine Creatinine Urine Total Protein Fluid Total Protein Vancomycin Trough Rheumatoid Factor Complement C4 Miscellaneous Test Crossmatch 11/24/16 11/24/16 11/24/16 06:43 08:08 08:08 WBC 11.2 H RBC 2.47 L Hgb 6.8 L Hct 20.6 L MCV MCH MCHC RDW 17.0 H Plt Count Lymph % (Auto) [place] % (Auto) 10.3 H Lymph # [place] # 1.2 H Baso # Seg Neutrophils % Seg Neuts % (Manual) Lymphocytes % (Manual) Monocytes % (Manual) Eosinophils % (Manual) Basophils % (Manual) Nucleated RBC % Seg Neutrophils # Seg Neutrophils # Man Lymphocytes # (Manual) Monocytes # (Manual) Eosinophils # (Manual) Basophils # (Manual) PT INR Fibrinogen dRVVT Confirm Interp Factor V Activity POC ABG pH POC ABG pCO2 POC ABG pO2 ABG pO2 ABG HCO3 ABG Base Excess ABG Hemoglobin Oxyhemoglobin Sodium 135 L Potassium Chloride 96.3 L Carbon Dioxide BUN 61 H Creatinine 3.1 H Glucose POC Glucose 62 L Lactic Acid Calcium 8.2 L Ionized Calcium Phosphorus Magnesium Direct Bilirubin AST ALT Alkaline Phosphatase Lactate Dehydrogenase Troponin T C-Reactive Protein Total Protein Albumin Prealbumin Triglycerides Cholesterol LDL Cholesterol Direct HDL Cholesterol 25-OH Vitamin D Total PTH Intact Urine pH Urine WBC (Auto) Urine Creatinine Urine Total Protein Fluid Total Protein Vancomycin Trough Rheumatoid Factor Complement C4 Miscellaneous Test Crossmatch 11/24/16 11/24/16 11/24/16 08:34 11:20 12:41 WBC RBC Hgb Hct MCV MCH MCHC RDW Plt Count Lymph % (Auto) [place] % (Auto) Lymph # [place] # Baso # Seg Neutrophils % Seg Neuts % (Manual) Lymphocytes % (Manual) Monocytes % (Manual) Eosinophils % (Manual) Basophils % (Manual) Nucleated RBC % Seg Neutrophils # Seg Neutrophils # Man Lymphocytes # (Manual) Monocytes # (Manual) Eosinophils # (Manual) Basophils # (Manual) PT INR Fibrinogen dRVVT Confirm Interp Factor V Activity POC ABG pH POC ABG pCO2 POC ABG pO2 ABG pO2 ABG HCO3 ABG Base Excess ABG Hemoglobin Oxyhemoglobin Sodium Potassium Chloride Carbon Dioxide BUN Creatinine Glucose POC Glucose 108 H Lactic Acid Calcium Ionized Calcium Phosphorus Magnesium 1.60 L Direct Bilirubin AST ALT Alkaline Phosphatase Lactate Dehydrogenase Troponin T C-Reactive Protein Total Protein Albumin Prealbumin Triglycerides Cholesterol LDL Cholesterol Direct HDL Cholesterol 25-OH Vitamin D Total PTH Intact Urine pH Urine WBC (Auto) Urine Creatinine Urine Total Protein Fluid Total Protein Vancomycin Trough Rheumatoid Factor Complement C4 Miscellaneous Test Crossmatch See Detail 11/25/16 11/25/16 11/25/16 00:03 04:42 04:42 WBC RBC 3.03 L Hgb 8.6 L Hct 25.3 L MCV MCH MCHC RDW 16.2 H Plt Count Lymph % (Auto) [place] % (Auto) 8.1 H Lymph # [place] # Baso # Seg Neutrophils % 71.3 H Seg Neuts % (Manual) Lymphocytes % (Manual) Monocytes % (Manual) Eosinophils % (Manual) Basophils % (Manual) Nucleated RBC % Seg Neutrophils # Seg Neutrophils # Man Lymphocytes # (Manual) Monocytes # (Manual) Eosinophils # (Manual) Basophils # (Manual) PT INR Fibrinogen dRVVT Confirm Interp Factor V Activity POC ABG pH POC ABG pCO2 POC ABG pO2 ABG pO2 ABG HCO3 ABG Base Excess ABG Hemoglobin Oxyhemoglobin Sodium Potassium Chloride Carbon Dioxide BUN 61 H Creatinine 3.0 H Glucose 102 H POC Glucose 113 H Lactic Acid Calcium 8.2 L Ionized Calcium Phosphorus Magnesium Direct Bilirubin AST ALT Alkaline Phosphatase 142 H Lactate Dehydrogenase Troponin T C-Reactive Protein Total Protein 5.7 L Albumin 1.5 L Prealbumin Triglycerides Cholesterol LDL Cholesterol Direct HDL Cholesterol 25-OH Vitamin D Total PTH Intact Urine pH Urine WBC (Auto) Urine Creatinine Urine Total Protein Fluid Total Protein Vancomycin Trough Rheumatoid Factor Complement C4 Miscellaneous Test Crossmatch 11/25/16 11/25/16 11/25/16 05:12 11:31 14:12 WBC RBC Hgb Hct MCV MCH MCHC RDW Plt Count Lymph % (Auto) [place] % (Auto) Lymph # [place] # Baso # Seg Neutrophils % Seg Neuts % (Manual) Lymphocytes % (Manual) Monocytes % (Manual) Eosinophils % (Manual) Basophils % (Manual) Nucleated RBC % Seg Neutrophils # Seg Neutrophils # Man Lymphocytes # (Manual) Monocytes # (Manual) Eosinophils # (Manual) Basophils # (Manual) PT INR Fibrinogen dRVVT Confirm Interp Factor V Activity POC ABG pH 7.487 H POC ABG pCO2 POC ABG pO2 153 H ABG pO2 ABG HCO3 ABG Base Excess ABG Hemoglobin Oxyhemoglobin Sodium Potassium Chloride Carbon Dioxide BUN Creatinine Glucose POC Glucose 131 H 140 H Lactic Acid Calcium Ionized Calcium Phosphorus Magnesium Direct Bilirubin AST ALT Alkaline Phosphatase Lactate Dehydrogenase Troponin T C-Reactive Protein Total Protein Albumin Prealbumin Triglycerides Cholesterol LDL Cholesterol Direct HDL Cholesterol 25-OH Vitamin D Total PTH Intact Urine pH Urine WBC (Auto) Urine Creatinine Urine Total Protein Fluid Total Protein Vancomycin Trough Rheumatoid Factor Complement C4 Miscellaneous Test Crossmatch 11/25/16 11/26/16 11/26/16 17:23 00:09 05:13 WBC RBC 2.94 L Hgb 8.4 L Hct 24.6 L MCV MCH MCHC RDW 16.4 H Plt Count Lymph % (Auto) [place] % (Auto) 12.3 H Lymph # [place] # 1.1 H Baso # Seg Neutrophils % Seg Neuts % (Manual) Lymphocytes % (Manual) Monocytes % (Manual) Eosinophils % (Manual) Basophils % (Manual) Nucleated RBC % Seg Neutrophils # Seg Neutrophils # Man Lymphocytes # (Manual) Monocytes # (Manual) Eosinophils # (Manual) Basophils # (Manual) PT INR Fibrinogen dRVVT Confirm Interp Factor V Activity POC ABG pH POC ABG pCO2 POC ABG pO2 ABG pO2 ABG HCO3 ABG Base Excess ABG Hemoglobin Oxyhemoglobin Sodium Potassium Chloride Carbon Dioxide BUN Creatinine Glucose POC Glucose 146 H 112 H Lactic Acid Calcium Ionized Calcium Phosphorus Magnesium Direct Bilirubin AST ALT Alkaline Phosphatase Lactate Dehydrogenase Troponin T C-Reactive Protein Total Protein Albumin Prealbumin Triglycerides Cholesterol LDL Cholesterol Direct HDL Cholesterol 25-OH Vitamin D Total PTH Intact Urine pH Urine WBC (Auto) Urine Creatinine Urine Total Protein Fluid Total Protein Vancomycin Trough Rheumatoid Factor Complement C4 Miscellaneous Test Crossmatch 11/26/16 11/26/16 11/26/16 05:13 05:28 11:53 WBC RBC Hgb Hct MCV MCH MCHC RDW Plt Count Lymph % (Auto) [place] % (Auto) Lymph # [place] # Baso # Seg Neutrophils % Seg Neuts % (Manual) Lymphocytes % (Manual) Monocytes % (Manual) Eosinophils % (Manual) Basophils % (Manual) Nucleated RBC % Seg Neutrophils # Seg Neutrophils # Man Lymphocytes # (Manual) Monocytes # (Manual) Eosinophils # (Manual) Basophils # (Manual) PT INR Fibrinogen dRVVT Confirm Interp Factor V Activity POC ABG pH POC ABG pCO2 POC ABG pO2 ABG pO2 ABG HCO3 ABG Base Excess ABG Hemoglobin Oxyhemoglobin Sodium Potassium Chloride 97.8 L Carbon Dioxide BUN 37 H Creatinine 2.0 H Glucose 109 H POC Glucose 117 H 111 H Lactic Acid Calcium 7.9 L Ionized Calcium Phosphorus 1.80 L D Magnesium Direct Bilirubin AST ALT Alkaline Phosphatase Lactate Dehydrogenase Troponin T C-Reactive Protein Total Protein Albumin Prealbumin Triglycerides Cholesterol LDL Cholesterol Direct HDL Cholesterol 25-OH Vitamin D Total PTH Intact Urine pH Urine WBC (Auto) Urine Creatinine Urine Total Protein Fluid Total Protein Vancomycin Trough Rheumatoid Factor Complement C4 Miscellaneous Test Crossmatch 11/26/16 11/27/16 11/27/16 17:14 04:50 06:02 WBC RBC Hgb Hct MCV MCH MCHC RDW Plt Count Lymph % (Auto) [place] % (Auto) Lymph # [place] # Baso # Seg Neutrophils % Seg Neuts % (Manual) Lymphocytes % (Manual) Monocytes % (Manual) Eosinophils % (Manual) Basophils % (Manual) Nucleated RBC % Seg Neutrophils # Seg Neutrophils # Man Lymphocytes # (Manual) Monocytes # (Manual) Eosinophils # (Manual) Basophils # (Manual) PT INR Fibrinogen dRVVT Confirm Interp Factor V Activity POC ABG pH POC ABG pCO2 POC ABG pO2 ABG pO2 75.2 L ABG HCO3 26.4 H ABG Base Excess ABG Hemoglobin 7.6 L Oxyhemoglobin 94.8 L Sodium Potassium Chloride Carbon Dioxide BUN 49 H Creatinine 2.3 H Glucose POC Glucose 115 H Lactic Acid Calcium Ionized Calcium Phosphorus 1.50 L Magnesium Direct Bilirubin AST ALT Alkaline Phosphatase Lactate Dehydrogenase Troponin T C-Reactive Protein Total Protein Albumin Prealbumin Triglycerides Cholesterol LDL Cholesterol Direct HDL Cholesterol 25-OH Vitamin D Total PTH Intact Urine pH Urine WBC (Auto) Urine Creatinine Urine Total Protein Fluid Total Protein Vancomycin Trough Rheumatoid Factor Complement C4 Miscellaneous Test Crossmatch 11/27/16 11/27/16 11/27/16 06:02 11:25 17:25 WBC 11.6 H RBC 2.75 L Hgb 7.6 L Hct 23.4 L MCV MCH MCHC RDW 16.5 H Plt Count Lymph % (Auto) [place] % (Auto) Lymph # [place] # Baso # Seg Neutrophils % Seg Neuts % (Manual) Lymphocytes % (Manual) Monocytes % (Manual) Eosinophils % (Manual) Basophils % (Manual) Nucleated RBC % Seg Neutrophils # Seg Neutrophils # Man Lymphocytes # (Manual) Monocytes # (Manual) Eosinophils # (Manual) Basophils # (Manual) PT INR Fibrinogen dRVVT Confirm Interp Factor V Activity POC ABG pH POC ABG pCO2 POC ABG pO2 ABG pO2 ABG HCO3 ABG Base Excess ABG Hemoglobin Oxyhemoglobin Sodium Potassium Chloride Carbon Dioxide BUN Creatinine Glucose POC Glucose 114 H 126 H Lactic Acid Calcium Ionized Calcium Phosphorus Magnesium Direct Bilirubin AST ALT Alkaline Phosphatase Lactate Dehydrogenase Troponin T C-Reactive Protein Total Protein Albumin Prealbumin Triglycerides Cholesterol LDL Cholesterol Direct HDL Cholesterol 25-OH Vitamin D Total PTH Intact Urine pH Urine WBC (Auto) Urine Creatinine Urine Total Protein Fluid Total Protein Vancomycin Trough Rheumatoid Factor Complement C4 Miscellaneous Test Crossmatch 11/28/16 11/28/16 11/28/16 04:45 05:33 05:44 WBC RBC Hgb Hct MCV MCH MCHC RDW Plt Count Lymph % (Auto) [place] % (Auto) Lymph # [place] # Baso # Seg Neutrophils % Seg Neuts % (Manual) Lymphocytes % (Manual) Monocytes % (Manual) Eosinophils % (Manual) Basophils % (Manual) Nucleated RBC % Seg Neutrophils # Seg Neutrophils # Man Lymphocytes # (Manual) Monocytes # (Manual) Eosinophils # (Manual) Basophils # (Manual) PT INR Fibrinogen dRVVT Confirm Interp Factor V Activity POC ABG pH POC ABG pCO2 POC ABG pO2 ABG pO2 99.3 H ABG HCO3 ABG Base Excess ABG Hemoglobin 8.3 L Oxyhemoglobin Sodium Potassium Chloride Carbon Dioxide BUN 63 H Creatinine 2.4 H Glucose 102 H POC Glucose 108 H Lactic Acid Calcium Ionized Calcium Phosphorus 1.80 L Magnesium Direct Bilirubin AST ALT Alkaline Phosphatase Lactate Dehydrogenase Troponin T C-Reactive Protein Total Protein Albumin Prealbumin Triglycerides Cholesterol LDL Cholesterol Direct HDL Cholesterol 25-OH Vitamin D Total PTH Intact Urine pH Urine WBC (Auto) Urine Creatinine Urine Total Protein Fluid Total Protein Vancomycin Trough Rheumatoid Factor Complement C4 Miscellaneous Test Crossmatch 11/28/16 11/28/16 11/28/16 12:31 16:09 23:46 WBC RBC Hgb Hct MCV MCH MCHC RDW Plt Count Lymph % (Auto) [place] % (Auto) Lymph # [place] # Baso # Seg Neutrophils % Seg Neuts % (Manual) Lymphocytes % (Manual) Monocytes % (Manual) Eosinophils % (Manual) Basophils % (Manual) Nucleated RBC % Seg Neutrophils # Seg Neutrophils # Man Lymphocytes # (Manual) Monocytes # (Manual) Eosinophils # (Manual) Basophils # (Manual) PT INR Fibrinogen dRVVT Confirm Interp Factor V Activity POC ABG pH POC ABG pCO2 POC ABG pO2 ABG pO2 ABG HCO3 ABG Base Excess ABG Hemoglobin Oxyhemoglobin Sodium Potassium Chloride Carbon Dioxide BUN Creatinine Glucose POC Glucose 126 H 111 H 119 H Lactic Acid Calcium Ionized Calcium Phosphorus Magnesium Direct Bilirubin AST ALT Alkaline Phosphatase Lactate Dehydrogenase Troponin T C-Reactive Protein Total Protein Albumin Prealbumin Triglycerides Cholesterol LDL Cholesterol Direct HDL Cholesterol 25-OH Vitamin D Total PTH Intact Urine pH Urine WBC (Auto) Urine Creatinine Urine Total Protein Fluid Total Protein Vancomycin Trough Rheumatoid Factor Complement C4 Miscellaneous Test Crossmatch 11/29/16 11/29/16 11/29/16 03:33 04:52 05:10 WBC RBC Hgb Hct MCV MCH MCHC RDW Plt Count Lymph % (Auto) [place] % (Auto) Lymph # [place] # Baso # Seg Neutrophils % Seg Neuts % (Manual) Lymphocytes % (Manual) Monocytes % (Manual) Eosinophils % (Manual) Basophils % (Manual) Nucleated RBC % Seg Neutrophils # Seg Neutrophils # Man Lymphocytes # (Manual) Monocytes # (Manual) Eosinophils # (Manual) Basophils # (Manual) PT INR Fibrinogen dRVVT Confirm Interp Factor V Activity POC ABG pH POC ABG pCO2 POC ABG pO2 ABG pO2 ABG HCO3 ABG Base Excess ABG Hemoglobin 7.0 L Oxyhemoglobin 94.9 L Sodium Potassium Chloride Carbon Dioxide BUN 73 H Creatinine 2.7 H Glucose POC Glucose 108 H Lactic Acid Calcium Ionized Calcium Phosphorus Magnesium Direct Bilirubin AST ALT Alkaline Phosphatase Lactate Dehydrogenase Troponin T C-Reactive Protein Total Protein Albumin Prealbumin Triglycerides Cholesterol LDL Cholesterol Direct HDL Cholesterol 25-OH Vitamin D Total PTH Intact Urine pH Urine WBC (Auto) Urine Creatinine Urine Total Protein Fluid Total Protein Vancomycin Trough Rheumatoid Factor Complement C4 Miscellaneous Test Crossmatch 11/29/16 11/29/16 11/29/16 12:16 18:05 23:46 WBC RBC Hgb Hct MCV MCH MCHC RDW Plt Count Lymph % (Auto) [place] % (Auto) Lymph # [place] # Baso # Seg Neutrophils % Seg Neuts % (Manual) Lymphocytes % (Manual) Monocytes % (Manual) Eosinophils % (Manual) Basophils % (Manual) Nucleated RBC % Seg Neutrophils # Seg Neutrophils # Man Lymphocytes # (Manual) Monocytes # (Manual) Eosinophils # (Manual) Basophils # (Manual) PT INR Fibrinogen dRVVT Confirm Interp Factor V Activity POC ABG pH POC ABG pCO2 POC ABG pO2 ABG pO2 ABG HCO3 ABG Base Excess ABG Hemoglobin Oxyhemoglobin Sodium Potassium Chloride Carbon Dioxide BUN Creatinine Glucose POC Glucose 133 H 146 H 141 H Lactic Acid Calcium Ionized Calcium Phosphorus Magnesium Direct Bilirubin AST ALT Alkaline Phosphatase Lactate Dehydrogenase Troponin T C-Reactive Protein Total Protein Albumin Prealbumin Triglycerides Cholesterol LDL Cholesterol Direct HDL Cholesterol 25-OH Vitamin D Total PTH Intact Urine pH Urine WBC (Auto) Urine Creatinine Urine Total Protein Fluid Total Protein Vancomycin Trough Rheumatoid Factor Complement C4 Miscellaneous Test Crossmatch 11/30/16 11/30/16 11/30/16 04:17 04:17 04:32 WBC 12.0 H RBC 2.80 L Hgb 7.8 L Hct 23.6 L MCV MCH MCHC RDW 16.6 H Plt Count Lymph % (Auto) [place] % (Auto) 11.3 H Lymph # [place] # 1.4 H Baso # Seg Neutrophils % Seg Neuts % (Manual) Lymphocytes % (Manual) Monocytes % (Manual) Eosinophils % (Manual) Basophils % (Manual) Nucleated RBC % Seg Neutrophils # 8.2 H Seg Neutrophils # Man Lymphocytes # (Manual) Monocytes # (Manual) Eosinophils # (Manual) Basophils # (Manual) PT INR Fibrinogen dRVVT Confirm Interp Factor V Activity POC ABG pH POC ABG pCO2 POC ABG pO2 ABG pO2 ABG HCO3 ABG Base Excess ABG Hemoglobin Oxyhemoglobin Sodium 169 H* D Potassium 5.1 H Chloride 121.5 H Carbon Dioxide BUN 34 H Creatinine 1.3 H D Glucose 133 H POC Glucose 131 H Lactic Acid Calcium 10.3 H Ionized Calcium Phosphorus Magnesium Direct Bilirubin AST ALT Alkaline Phosphatase Lactate Dehydrogenase Troponin T C-Reactive Protein Total Protein Albumin Prealbumin Triglycerides Cholesterol LDL Cholesterol Direct HDL Cholesterol 25-OH Vitamin D Total PTH Intact Urine pH Urine WBC (Auto) Urine Creatinine Urine Total Protein Fluid Total Protein Vancomycin Trough Rheumatoid Factor Complement C4 Miscellaneous Test Crossmatch 11/30/16 11/30/16 11/30/16 05:45 11:10 17:26 WBC RBC Hgb Hct MCV MCH MCHC RDW Plt Count Lymph % (Auto) [place] % (Auto) Lymph # [place] # Baso # Seg Neutrophils % Seg Neuts % (Manual) Lymphocytes % (Manual) Monocytes % (Manual) Eosinophils % (Manual) Basophils % (Manual) Nucleated RBC % Seg Neutrophils # Seg Neutrophils # Man Lymphocytes # (Manual) Monocytes # (Manual) Eosinophils # (Manual) Basophils # (Manual) PT INR Fibrinogen dRVVT Confirm Interp Factor V Activity POC ABG pH POC ABG pCO2 POC ABG pO2 ABG pO2 ABG HCO3 ABG Base Excess ABG Hemoglobin Oxyhemoglobin Sodium Potassium Chloride Carbon Dioxide BUN 45 H Creatinine 1.6 H Glucose 131 H POC Glucose 146 H 134 H Lactic Acid Calcium Ionized Calcium Phosphorus Magnesium Direct Bilirubin AST ALT Alkaline Phosphatase Lactate Dehydrogenase Troponin T C-Reactive Protein Total Protein Albumin Prealbumin Triglycerides Cholesterol LDL Cholesterol Direct HDL Cholesterol 25-OH Vitamin D Total PTH Intact Urine pH Urine WBC (Auto) Urine Creatinine Urine Total Protein Fluid Total Protein Vancomycin Trough Rheumatoid Factor Complement C4 Miscellaneous Test Crossmatch 11/30/16 12/01/16 12/01/16 23:35 00:06 03:35 WBC RBC Hgb Hct MCV MCH MCHC RDW Plt Count Lymph % (Auto) [place] % (Auto) Lymph # [place] # Baso # Seg Neutrophils % Seg Neuts % (Manual) Lymphocytes % (Manual) Monocytes % (Manual) Eosinophils % (Manual) Basophils % (Manual) Nucleated RBC % Seg Neutrophils # Seg Neutrophils # Man Lymphocytes # (Manual) Monocytes # (Manual) Eosinophils # (Manual) Basophils # (Manual) PT INR Fibrinogen dRVVT Confirm Interp Factor V Activity POC ABG pH POC ABG pCO2 POC ABG pO2 ABG pO2 ABG HCO3 ABG Base Excess ABG Hemoglobin 6.9 L Oxyhemoglobin Sodium Potassium Chloride Carbon Dioxide BUN 58 H Creatinine 1.8 H Glucose 146 H POC Glucose 151 H Lactic Acid Calcium Ionized Calcium Phosphorus Magnesium Direct Bilirubin AST ALT Alkaline Phosphatase Lactate Dehydrogenase Troponin T C-Reactive Protein Total Protein Albumin Prealbumin Triglycerides Cholesterol LDL Cholesterol Direct HDL Cholesterol 25-OH Vitamin D Total PTH Intact Urine pH Urine WBC (Auto) Urine Creatinine Urine Total Protein Fluid Total Protein Vancomycin Trough Rheumatoid Factor Complement C4 Miscellaneous Test Crossmatch 12/01/16 12/01/16 12/01/16 03:35 05:47 11:52 WBC 12.3 H RBC 2.82 L Hgb 7.8 L Hct 23.7 L MCV MCH MCHC RDW 16.7 H Plt Count Lymph % (Auto) [place] % (Auto) 9.8 H Lymph # [place] # 1.2 H Baso # Seg Neutrophils % Seg Neuts % (Manual) Lymphocytes % (Manual) Monocytes % (Manual) Eosinophils % (Manual) Basophils % (Manual) Nucleated RBC % Seg Neutrophils # 8.4 H Seg Neutrophils # Man Lymphocytes # (Manual) Monocytes # (Manual) Eosinophils # (Manual) Basophils # (Manual) PT INR Fibrinogen dRVVT Confirm Interp Factor V Activity POC ABG pH POC ABG pCO2 POC ABG pO2 ABG pO2 ABG HCO3 ABG Base Excess ABG Hemoglobin Oxyhemoglobin Sodium Potassium Chloride Carbon Dioxide BUN Creatinine Glucose POC Glucose 152 H 152 H Lactic Acid Calcium Ionized Calcium Phosphorus Magnesium Direct Bilirubin AST ALT Alkaline Phosphatase Lactate Dehydrogenase Troponin T C-Reactive Protein Total Protein Albumin Prealbumin Triglycerides Cholesterol LDL Cholesterol Direct HDL Cholesterol 25-OH Vitamin D Total PTH Intact Urine pH Urine WBC (Auto) Urine Creatinine Urine Total Protein Fluid Total Protein Vancomycin Trough Rheumatoid Factor Complement C4 Miscellaneous Test Crossmatch 12/01/16 12/01/16 12/02/16 17:40 23:41 05:00 WBC RBC Hgb Hct MCV MCH MCHC RDW Plt Count Lymph % (Auto) [place] % (Auto) Lymph # [place] # Baso # Seg Neutrophils % Seg Neuts % (Manual) Lymphocytes % (Manual) Monocytes % (Manual) Eosinophils % (Manual) Basophils % (Manual) Nucleated RBC % Seg Neutrophils # Seg Neutrophils # Man Lymphocytes # (Manual) Monocytes # (Manual) Eosinophils # (Manual) Basophils # (Manual) PT INR Fibrinogen dRVVT Confirm Interp Factor V Activity POC ABG pH POC ABG pCO2 POC ABG pO2 ABG pO2 ABG HCO3 ABG Base Excess ABG Hemoglobin Oxyhemoglobin Sodium Potassium Chloride Carbon Dioxide BUN 45 H Creatinine Glucose 115 H POC Glucose 140 H 144 H Lactic Acid Calcium Ionized Calcium Phosphorus Magnesium Direct Bilirubin AST ALT Alkaline Phosphatase Lactate Dehydrogenase Troponin T C-Reactive Protein Total Protein Albumin Prealbumin Triglycerides Cholesterol LDL Cholesterol Direct HDL Cholesterol 25-OH Vitamin D Total PTH Intact Urine pH Urine WBC (Auto) Urine Creatinine Urine Total Protein Fluid Total Protein Vancomycin Trough Rheumatoid Factor Complement C4 Miscellaneous Test Crossmatch 12/02/16 12/02/16 12/02/16 05:31 11:20 17:38 WBC RBC Hgb Hct MCV MCH MCHC RDW Plt Count Lymph % (Auto) [place] % (Auto) Lymph # [place] # Baso # Seg Neutrophils % Seg Neuts % (Manual) Lymphocytes % (Manual) Monocytes % (Manual) Eosinophils % (Manual) Basophils % (Manual) Nucleated RBC % Seg Neutrophils # Seg Neutrophils # Man Lymphocytes # (Manual) Monocytes # (Manual) Eosinophils # (Manual) Basophils # (Manual) PT INR Fibrinogen dRVVT Confirm Interp Factor V Activity POC ABG pH POC ABG pCO2 POC ABG pO2 ABG pO2 ABG HCO3 ABG Base Excess ABG Hemoglobin Oxyhemoglobin Sodium Potassium Chloride Carbon Dioxide BUN Creatinine Glucose POC Glucose 136 H 177 H 139 H Lactic Acid Calcium Ionized Calcium Phosphorus Magnesium Direct Bilirubin AST ALT Alkaline Phosphatase Lactate Dehydrogenase Troponin T C-Reactive Protein Total Protein Albumin Prealbumin Triglycerides Cholesterol LDL Cholesterol Direct HDL Cholesterol 25-OH Vitamin D Total PTH Intact Urine pH Urine WBC (Auto) Urine Creatinine Urine Total Protein Fluid Total Protein Vancomycin Trough Rheumatoid Factor Complement C4 Miscellaneous Test Crossmatch 12/02/16 12/03/16 12/03/16 23:43 04:00 04:00 WBC 20.4 H RBC 2.74 L Hgb 7.4 L Hct 23.6 L MCV MCH 27 L MCHC RDW 17.1 H Plt Count Lymph % (Auto) [place] % (Auto) Lymph # [place] # Baso # Seg Neutrophils % Seg Neuts % (Manual) 31.0 L Lymphocytes % (Manual) Monocytes % (Manual) Eosinophils % (Manual) Basophils % (Manual) Nucleated RBC % Seg Neutrophils # Seg Neutrophils # Man Lymphocytes # (Manual) Monocytes # (Manual) Eosinophils # (Manual) Basophils # (Manual) PT INR Fibrinogen dRVVT Confirm Interp Factor V Activity POC ABG pH POC ABG pCO2 POC ABG pO2 ABG pO2 ABG HCO3 ABG Base Excess ABG Hemoglobin Oxyhemoglobin Sodium Potassium Chloride Carbon Dioxide BUN 61 H Creatinine 1.6 H Glucose 119 H POC Glucose 158 H Lactic Acid Calcium Ionized Calcium Phosphorus Magnesium Direct Bilirubin AST ALT Alkaline Phosphatase Lactate Dehydrogenase Troponin T C-Reactive Protein Total Protein Albumin Prealbumin Triglycerides Cholesterol LDL Cholesterol Direct HDL Cholesterol 25-OH Vitamin D Total PTH Intact Urine pH Urine WBC (Auto) Urine Creatinine Urine Total Protein Fluid Total Protein Vancomycin Trough Rheumatoid Factor Complement C4 Miscellaneous Test Crossmatch 12/03/16 12/03/16 12/03/16 05:02 12:11 18:16 WBC RBC Hgb Hct MCV MCH MCHC RDW Plt Count Lymph % (Auto) [place] % (Auto) Lymph # [place] # Baso # Seg Neutrophils % Seg Neuts % (Manual) Lymphocytes % (Manual) Monocytes % (Manual) Eosinophils % (Manual) Basophils % (Manual) Nucleated RBC % Seg Neutrophils # Seg Neutrophils # Man Lymphocytes # (Manual) Monocytes # (Manual) Eosinophils # (Manual) Basophils # (Manual) PT INR Fibrinogen dRVVT Confirm Interp Factor V Activity POC ABG pH POC ABG pCO2 POC ABG pO2 ABG pO2 ABG HCO3 ABG Base Excess ABG Hemoglobin Oxyhemoglobin Sodium Potassium Chloride Carbon Dioxide BUN Creatinine Glucose POC Glucose 146 H 157 H 124 H Lactic Acid Calcium Ionized Calcium Phosphorus Magnesium Direct Bilirubin AST ALT Alkaline Phosphatase Lactate Dehydrogenase Troponin T C-Reactive Protein Total Protein Albumin Prealbumin Triglycerides Cholesterol LDL Cholesterol Direct HDL Cholesterol 25-OH Vitamin D Total PTH Intact Urine pH Urine WBC (Auto) Urine Creatinine Urine Total Protein Fluid Total Protein Vancomycin Trough Rheumatoid Factor Complement C4 Miscellaneous Test Crossmatch 12/03/16 12/04/16 12/04/16 23:41 04:00 04:45 WBC RBC Hgb Hct MCV MCH MCHC RDW Plt Count Lymph % (Auto) [place] % (Auto) Lymph # [place] # Baso # Seg Neutrophils % Seg Neuts % (Manual) Lymphocytes % (Manual) Monocytes % (Manual) Eosinophils % (Manual) Basophils % (Manual) Nucleated RBC % Seg Neutrophils # Seg Neutrophils # Man Lymphocytes # (Manual) Monocytes # (Manual) Eosinophils # (Manual) Basophils # (Manual) PT INR Fibrinogen dRVVT Confirm Interp Factor V Activity POC ABG pH POC ABG pCO2 POC ABG pO2 ABG pO2 ABG HCO3 ABG Base Excess ABG Hemoglobin Oxyhemoglobin Sodium Potassium Chloride Carbon Dioxide BUN 76 H Creatinine 1.6 H Glucose POC Glucose 130 H 136 H Lactic Acid Calcium Ionized Calcium Phosphorus Magnesium Direct Bilirubin AST ALT Alkaline Phosphatase 155 H Lactate Dehydrogenase Troponin T C-Reactive Protein Total Protein 5.5 L Albumin 1.5 L Prealbumin Triglycerides Cholesterol LDL Cholesterol Direct HDL Cholesterol 25-OH Vitamin D Total PTH Intact Urine pH Urine WBC (Auto) Urine Creatinine Urine Total Protein Fluid Total Protein Vancomycin Trough Rheumatoid Factor Complement C4 Miscellaneous Test Crossmatch 12/04/16 12/04/16 12/05/16 12:08 17:23 00:10 WBC RBC Hgb Hct MCV MCH MCHC RDW Plt Count Lymph % (Auto) [place] % (Auto) Lymph # [place] # Baso # Seg Neutrophils % Seg Neuts % (Manual) Lymphocytes % (Manual) Monocytes % (Manual) Eosinophils % (Manual) Basophils % (Manual) Nucleated RBC % Seg Neutrophils # Seg Neutrophils # Man Lymphocytes # (Manual) Monocytes # (Manual) Eosinophils # (Manual) Basophils # (Manual) PT INR Fibrinogen dRVVT Confirm Interp Factor V Activity POC ABG pH POC ABG pCO2 POC ABG pO2 ABG pO2 ABG HCO3 ABG Base Excess ABG Hemoglobin Oxyhemoglobin Sodium Potassium Chloride Carbon Dioxide BUN Creatinine Glucose POC Glucose 114 H 129 H 124 H Lactic Acid Calcium Ionized Calcium Phosphorus Magnesium Direct Bilirubin AST ALT Alkaline Phosphatase Lactate Dehydrogenase Troponin T C-Reactive Protein Total Protein Albumin Prealbumin Triglycerides Cholesterol LDL Cholesterol Direct HDL Cholesterol 25-OH Vitamin D Total PTH Intact Urine pH Urine WBC (Auto) Urine Creatinine Urine Total Protein Fluid Total Protein Vancomycin Trough Rheumatoid Factor Complement C4 Miscellaneous Test Crossmatch 12/05/16 12/05/16 12/05/16 05:00 05:00 05:18 WBC RBC Hgb Hct MCV MCH MCHC RDW Plt Count Lymph % (Auto) [place] % (Auto) Lymph # [place] # Baso # Seg Neutrophils % Seg Neuts % (Manual) Lymphocytes % (Manual) Monocytes % (Manual) Eosinophils % (Manual) Basophils % (Manual) Nucleated RBC % Seg Neutrophils # Seg Neutrophils # Man Lymphocytes # (Manual) Monocytes # (Manual) Eosinophils # (Manual) Basophils # (Manual) PT INR Fibrinogen dRVVT Confirm Interp Factor V Activity POC ABG pH POC ABG pCO2 POC ABG pO2 ABG pO2 ABG HCO3 ABG Base Excess ABG Hemoglobin Oxyhemoglobin Sodium Potassium Chloride Carbon Dioxide 21 L BUN 85 H Creatinine 1.9 H Glucose 131 H POC Glucose 154 H Lactic Acid Calcium Ionized Calcium Phosphorus Magnesium Direct Bilirubin AST ALT Alkaline Phosphatase Lactate Dehydrogenase Troponin T C-Reactive Protein 19.30 H Total Protein Albumin Prealbumin Triglycerides Cholesterol LDL Cholesterol Direct HDL Cholesterol 25-OH Vitamin D Total PTH Intact Urine pH Urine WBC (Auto) Urine Creatinine Urine Total Protein Fluid Total Protein Vancomycin Trough Rheumatoid Factor Complement C4 Miscellaneous Test Crossmatch 12/05/16 12/05/16 12/05/16 11:43 17:46 23:25 WBC RBC Hgb Hct MCV MCH MCHC RDW Plt Count Lymph % (Auto) [place] % (Auto) Lymph # [place] # Baso # Seg Neutrophils % Seg Neuts % (Manual) Lymphocytes % (Manual) Monocytes % (Manual) Eosinophils % (Manual) Basophils % (Manual) Nucleated RBC % Seg Neutrophils # Seg Neutrophils # Man Lymphocytes # (Manual) Monocytes # (Manual) Eosinophils # (Manual) Basophils # (Manual) PT INR Fibrinogen dRVVT Confirm Interp Factor V Activity POC ABG pH POC ABG pCO2 POC ABG pO2 ABG pO2 ABG HCO3 ABG Base Excess ABG Hemoglobin Oxyhemoglobin Sodium Potassium Chloride Carbon Dioxide BUN Creatinine Glucose POC Glucose 117 H 113 H 111 H Lactic Acid Calcium Ionized Calcium Phosphorus Magnesium Direct Bilirubin AST ALT Alkaline Phosphatase Lactate Dehydrogenase Troponin T C-Reactive Protein Total Protein Albumin Prealbumin Triglycerides Cholesterol LDL Cholesterol Direct HDL Cholesterol 25-OH Vitamin D Total PTH Intact Urine pH Urine WBC (Auto) Urine Creatinine Urine Total Protein Fluid Total Protein Vancomycin Trough Rheumatoid Factor Complement C4 Miscellaneous Test Crossmatch 12/05/16 12/06/16 12/06/16 Unknown 04:58 06:00 WBC RBC Hgb Hct MCV MCH MCHC RDW Plt Count Lymph % (Auto) [place] % (Auto) Lymph # [place] # Baso # Seg Neutrophils % Seg Neuts % (Manual) Lymphocytes % (Manual) Monocytes % (Manual) Eosinophils % (Manual) Basophils % (Manual) Nucleated RBC % Seg Neutrophils # Seg Neutrophils # Man Lymphocytes # (Manual) Monocytes # (Manual) Eosinophils # (Manual) Basophils # (Manual) PT INR Fibrinogen dRVVT Confirm Interp Factor V Activity POC ABG pH POC ABG pCO2 POC ABG pO2 ABG pO2 75.2 L ABG HCO3 ABG Base Excess -3.4 L ABG Hemoglobin 7.4 L Oxyhemoglobin 94.5 L Sodium Potassium Chloride Carbon Dioxide 20 L BUN 99 H Creatinine 2.1 H Glucose 126 H POC Glucose 145 H Lactic Acid Calcium Ionized Calcium Phosphorus 4.80 H Magnesium Direct Bilirubin AST ALT Alkaline Phosphatase Lactate Dehydrogenase Troponin T C-Reactive Protein Total Protein Albumin Prealbumin Triglycerides Cholesterol LDL Cholesterol Direct HDL Cholesterol 25-OH Vitamin D Total PTH Intact Urine pH Urine WBC (Auto) Urine Creatinine Urine Total Protein Fluid Total Protein Vancomycin Trough Rheumatoid Factor Complement C4 Miscellaneous Test Crossmatch 12/06/16 12/06/16 12/06/16 06:46 11:54 17:55 WBC RBC Hgb 8.3 L Hct 26.4 L MCV MCH MCHC RDW Plt Count Lymph % (Auto) [place] % (Auto) Lymph # [place] # Baso # Seg Neutrophils % Seg Neuts % (Manual) Lymphocytes % (Manual) Monocytes % (Manual) Eosinophils % (Manual) Basophils % (Manual) Nucleated RBC % Seg Neutrophils # Seg Neutrophils # Man Lymphocytes # (Manual) Monocytes # (Manual) Eosinophils # (Manual) Basophils # (Manual) PT INR Fibrinogen dRVVT Confirm Interp Factor V Activity POC ABG pH POC ABG pCO2 POC ABG pO2 ABG pO2 ABG HCO3 ABG Base Excess ABG Hemoglobin Oxyhemoglobin Sodium Potassium Chloride Carbon Dioxide BUN Creatinine Glucose POC Glucose 126 H 157 H Lactic Acid Calcium Ionized Calcium Phosphorus Magnesium Direct Bilirubin AST ALT Alkaline Phosphatase Lactate Dehydrogenase Troponin T C-Reactive Protein Total Protein Albumin Prealbumin Triglycerides Cholesterol LDL Cholesterol Direct HDL Cholesterol 25-OH Vitamin D Total PTH Intact Urine pH Urine WBC (Auto) Urine Creatinine Urine Total Protein Fluid Total Protein Vancomycin Trough Rheumatoid Factor Complement C4 Miscellaneous Test Crossmatch 12/06/16 12/07/16 12/07/16 23:59 05:34 06:30 WBC RBC Hgb Hct MCV MCH MCHC RDW Plt Count Lymph % (Auto) [place] % (Auto) Lymph # [place] # Baso # Seg Neutrophils % Seg Neuts % (Manual) Lymphocytes % (Manual) Monocytes % (Manual) Eosinophils % (Manual) Basophils % (Manual) Nucleated RBC % Seg Neutrophils # Seg Neutrophils # Man Lymphocytes # (Manual) Monocytes # (Manual) Eosinophils # (Manual) Basophils # (Manual) PT INR Fibrinogen dRVVT Confirm Interp Factor V Activity POC ABG pH POC ABG pCO2 POC ABG pO2 ABG pO2 ABG HCO3 ABG Base Excess ABG Hemoglobin Oxyhemoglobin Sodium Potassium Chloride Carbon Dioxide BUN 67 H Creatinine 1.4 H Glucose 126 H POC Glucose 129 H 129 H Lactic Acid Calcium Ionized Calcium Phosphorus Magnesium Direct Bilirubin AST ALT Alkaline Phosphatase Lactate Dehydrogenase Troponin T C-Reactive Protein Total Protein Albumin Prealbumin Triglycerides Cholesterol LDL Cholesterol Direct HDL Cholesterol 25-OH Vitamin D Total PTH Intact Urine pH Urine WBC (Auto) Urine Creatinine Urine Total Protein Fluid Total Protein Vancomycin Trough Rheumatoid Factor Complement C4 Miscellaneous Test Crossmatch 12/07/16 12/07/16 12/07/16 06:30 08:00 09:45 WBC 18.8 H RBC 2.52 L Hgb 6.9 L 6.8 L Hct 21.2 L 21.1 L MCV MCH 27 L MCHC RDW 18.0 H Plt Count Lymph % (Auto) [place] % (Auto) 9.9 H Lymph # [place] # 1.9 H Baso # Seg Neutrophils % 71.8 H Seg Neuts % (Manual) Lymphocytes % (Manual) Monocytes % (Manual) Eosinophils % (Manual) Basophils % (Manual) Nucleated RBC % Seg Neutrophils # 13.5 H Seg Neutrophils # Man Lymphocytes # (Manual) Monocytes # (Manual) Eosinophils # (Manual) Basophils # (Manual) PT INR Fibrinogen dRVVT Confirm Interp Factor V Activity POC ABG pH POC ABG pCO2 POC ABG pO2 ABG pO2 ABG HCO3 ABG Base Excess ABG Hemoglobin Oxyhemoglobin Sodium Potassium Chloride Carbon Dioxide BUN Creatinine Glucose POC Glucose Lactic Acid Calcium Ionized Calcium Phosphorus Magnesium Direct Bilirubin AST ALT Alkaline Phosphatase Lactate Dehydrogenase Troponin T C-Reactive Protein Total Protein Albumin Prealbumin Triglycerides Cholesterol LDL Cholesterol Direct HDL Cholesterol 25-OH Vitamin D Total PTH Intact Urine pH Urine WBC (Auto) Urine Creatinine Urine Total Protein Fluid Total Protein Vancomycin Trough Rheumatoid Factor Complement C4 Miscellaneous Test Crossmatch See Detail 12/07/16 12/07/16 12/07/16 11:44 18:19 23:59 WBC RBC Hgb Hct MCV MCH MCHC RDW Plt Count Lymph % (Auto) [place] % (Auto) Lymph # [place] # Baso # Seg Neutrophils % Seg Neuts % (Manual) Lymphocytes % (Manual) Monocytes % (Manual) Eosinophils % (Manual) Basophils % (Manual) Nucleated RBC % Seg Neutrophils # Seg Neutrophils # Man Lymphocytes # (Manual) Monocytes # (Manual) Eosinophils # (Manual) Basophils # (Manual) PT INR Fibrinogen dRVVT Confirm Interp Factor V Activity POC ABG pH POC ABG pCO2 POC ABG pO2 ABG pO2 ABG HCO3 ABG Base Excess ABG Hemoglobin Oxyhemoglobin Sodium Potassium Chloride Carbon Dioxide BUN Creatinine Glucose POC Glucose 137 H 138 H 133 H Lactic Acid Calcium Ionized Calcium Phosphorus Magnesium Direct Bilirubin AST ALT Alkaline Phosphatase Lactate Dehydrogenase Troponin T C-Reactive Protein Total Protein Albumin Prealbumin Triglycerides Cholesterol LDL Cholesterol Direct HDL Cholesterol 25-OH Vitamin D Total PTH Intact Urine pH Urine WBC (Auto) Urine Creatinine Urine Total Protein Fluid Total Protein Vancomycin Trough Rheumatoid Factor Complement C4 Miscellaneous Test Crossmatch 12/08/16 12/08/16 12/08/16 05:25 05:30 05:30 WBC 23.8 H RBC 2.88 L Hgb 8.1 L Hct 24.3 L MCV MCH MCHC RDW 16.7 H Plt Count Lymph % (Auto) [place] % (Auto) Lymph # [place] # Baso # Seg Neutrophils % Seg Neuts % (Manual) 76.0 H Lymphocytes % (Manual) 9.0 L Monocytes % (Manual) 9.0 H Eosinophils % (Manual) Basophils % (Manual) Nucleated RBC % Seg Neutrophils # Seg Neutrophils # Man 18.1 H Lymphocytes # (Manual) Monocytes # (Manual) 2.1 H Eosinophils # (Manual) Basophils # (Manual) PT INR Fibrinogen dRVVT Confirm Interp Factor V Activity POC ABG pH POC ABG pCO2 POC ABG pO2 ABG pO2 ABG HCO3 ABG Base Excess ABG Hemoglobin Oxyhemoglobin Sodium Potassium Chloride Carbon Dioxide 21 L BUN 76 H Creatinine 1.6 H Glucose 133 H POC Glucose 177 H Lactic Acid Calcium Ionized Calcium Phosphorus Magnesium Direct Bilirubin AST ALT Alkaline Phosphatase Lactate Dehydrogenase Troponin T C-Reactive Protein Total Protein Albumin Prealbumin Triglycerides Cholesterol LDL Cholesterol Direct HDL Cholesterol 25-OH Vitamin D Total PTH Intact Urine pH Urine WBC (Auto) Urine Creatinine Urine Total Protein Fluid Total Protein Vancomycin Trough Rheumatoid Factor Complement C4 Miscellaneous Test Crossmatch 12/08/16 12/08/16 12/09/16 11:45 18:00 00:00 WBC RBC Hgb Hct MCV MCH MCHC RDW Plt Count Lymph % (Auto) [place] % (Auto) Lymph # [place] # Baso # Seg Neutrophils % Seg Neuts % (Manual) Lymphocytes % (Manual) Monocytes % (Manual) Eosinophils % (Manual) Basophils % (Manual) Nucleated RBC % Seg Neutrophils # Seg Neutrophils # Man Lymphocytes # (Manual) Monocytes # (Manual) Eosinophils # (Manual) Basophils # (Manual) PT INR Fibrinogen dRVVT Confirm Interp Factor V Activity POC ABG pH POC ABG pCO2 POC ABG pO2 ABG pO2 ABG HCO3 ABG Base Excess ABG Hemoglobin Oxyhemoglobin Sodium Potassium Chloride Carbon Dioxide BUN Creatinine Glucose POC Glucose 163 H 123 H 137 H Lactic Acid Calcium Ionized Calcium Phosphorus Magnesium Direct Bilirubin AST ALT Alkaline Phosphatase Lactate Dehydrogenase Troponin T C-Reactive Protein Total Protein Albumin Prealbumin Triglycerides Cholesterol LDL Cholesterol Direct HDL Cholesterol 25-OH Vitamin D Total PTH Intact Urine pH Urine WBC (Auto) Urine Creatinine Urine Total Protein Fluid Total Protein Vancomycin Trough Rheumatoid Factor Complement C4 Miscellaneous Test Crossmatch 12/09/16 12/09/16 12/09/16 05:34 06:00 06:00 WBC 15.5 H RBC 2.87 L Hgb 8.0 L Hct 24.2 L MCV MCH MCHC RDW 17.2 H Plt Count Lymph % (Auto) [place] % (Auto) 11.6 H Lymph # [place] # 1.8 H Baso # Seg Neutrophils % 70.8 H Seg Neuts % (Manual) Lymphocytes % (Manual) Monocytes % (Manual) Eosinophils % (Manual) Basophils % (Manual) Nucleated RBC % Seg Neutrophils # 11.0 H Seg Neutrophils # Man Lymphocytes # (Manual) Monocytes # (Manual) Eosinophils # (Manual) Basophils # (Manual) PT INR Fibrinogen dRVVT Confirm Interp Factor V Activity POC ABG pH POC ABG pCO2 POC ABG pO2 ABG pO2 ABG HCO3 ABG Base Excess ABG Hemoglobin Oxyhemoglobin Sodium Potassium Chloride Carbon Dioxide BUN 51 H Creatinine Glucose 117 H POC Glucose 136 H Lactic Acid Calcium Ionized Calcium Phosphorus Magnesium Direct Bilirubin AST ALT Alkaline Phosphatase Lactate Dehydrogenase Troponin T C-Reactive Protein Total Protein Albumin Prealbumin Triglycerides Cholesterol LDL Cholesterol Direct HDL Cholesterol 25-OH Vitamin D Total PTH Intact Urine pH Urine WBC (Auto) Urine Creatinine Urine Total Protein Fluid Total Protein Vancomycin Trough Rheumatoid Factor Complement C4 Miscellaneous Test Crossmatch 12/09/16 12/09/16 12/09/16 12:29 17:52 23:10 WBC RBC Hgb Hct MCV MCH MCHC RDW Plt Count Lymph % (Auto) [place] % (Auto) Lymph # [place] # Baso # Seg Neutrophils % Seg Neuts % (Manual) Lymphocytes % (Manual) Monocytes % (Manual) Eosinophils % (Manual) Basophils % (Manual) Nucleated RBC % Seg Neutrophils # Seg Neutrophils # Man Lymphocytes # (Manual) Monocytes # (Manual) Eosinophils # (Manual) Basophils # (Manual) PT INR Fibrinogen dRVVT Confirm Interp Factor V Activity POC ABG pH POC ABG pCO2 POC ABG pO2 ABG pO2 ABG HCO3 ABG Base Excess ABG Hemoglobin Oxyhemoglobin Sodium Potassium Chloride Carbon Dioxide BUN Creatinine Glucose POC Glucose 139 H 140 H 129 H Lactic Acid Calcium Ionized Calcium Phosphorus Magnesium Direct Bilirubin AST ALT Alkaline Phosphatase Lactate Dehydrogenase Troponin T C-Reactive Protein Total Protein Albumin Prealbumin Triglycerides Cholesterol LDL Cholesterol Direct HDL Cholesterol 25-OH Vitamin D Total PTH Intact Urine pH Urine WBC (Auto) Urine Creatinine Urine Total Protein Fluid Total Protein Vancomycin Trough Rheumatoid Factor Complement C4 Miscellaneous Test Crossmatch 12/10/16 12/10/16 12/10/16 05:00 05:00 06:54 WBC 15.7 H RBC 2.87 L Hgb 8.2 L Hct 24.4 L MCV MCH MCHC RDW 17.2 H Plt Count Lymph % (Auto) [place] % (Auto) 8.3 H Lymph # [place] # 1.3 H Baso # Seg Neutrophils % 72.8 H Seg Neuts % (Manual) Lymphocytes % (Manual) Monocytes % (Manual) Eosinophils % (Manual) Basophils % (Manual) Nucleated RBC % Seg Neutrophils # 11.4 H Seg Neutrophils # Man Lymphocytes # (Manual) Monocytes # (Manual) Eosinophils # (Manual) Basophils # (Manual) PT INR Fibrinogen dRVVT Confirm Interp Factor V Activity POC ABG pH POC ABG pCO2 POC ABG pO2 ABG pO2 ABG HCO3 ABG Base Excess ABG Hemoglobin Oxyhemoglobin Sodium Potassium Chloride Carbon Dioxide BUN 64 H Creatinine 1.4 H Glucose 134 H POC Glucose 154 H Lactic Acid Calcium Ionized Calcium Phosphorus Magnesium Direct Bilirubin AST ALT Alkaline Phosphatase Lactate Dehydrogenase Troponin T C-Reactive Protein Total Protein Albumin Prealbumin Triglycerides Cholesterol LDL Cholesterol Direct HDL Cholesterol 25-OH Vitamin D Total PTH Intact Urine pH Urine WBC (Auto) Urine Creatinine Urine Total Protein Fluid Total Protein Vancomycin Trough Rheumatoid Factor Complement C4 Miscellaneous Test Crossmatch 12/10/16 12/10/16 12/10/16 11:58 17:29 23:52 WBC RBC Hgb Hct MCV MCH MCHC RDW Plt Count Lymph % (Auto) [place] % (Auto) Lymph # [place] # Baso # Seg Neutrophils % Seg Neuts % (Manual) Lymphocytes % (Manual) Monocytes % (Manual) Eosinophils % (Manual) Basophils % (Manual) Nucleated RBC % Seg Neutrophils # Seg Neutrophils # Man Lymphocytes # (Manual) Monocytes # (Manual) Eosinophils # (Manual) Basophils # (Manual) PT INR Fibrinogen dRVVT Confirm Interp Factor V Activity POC ABG pH POC ABG pCO2 POC ABG pO2 ABG pO2 ABG HCO3 ABG Base Excess ABG Hemoglobin Oxyhemoglobin Sodium Potassium Chloride Carbon Dioxide BUN Creatinine Glucose POC Glucose 144 H 163 H 125 H Lactic Acid Calcium Ionized Calcium Phosphorus Magnesium Direct Bilirubin AST ALT Alkaline Phosphatase Lactate Dehydrogenase Troponin T C-Reactive Protein Total Protein Albumin Prealbumin Triglycerides Cholesterol LDL Cholesterol Direct HDL Cholesterol 25-OH Vitamin D Total PTH Intact Urine pH Urine WBC (Auto) Urine Creatinine Urine Total Protein Fluid Total Protein Vancomycin Trough Rheumatoid Factor Complement C4 Miscellaneous Test Crossmatch 12/11/16 12/11/16 12/11/16 05:38 06:30 06:30 WBC 14.4 H RBC 2.76 L Hgb 7.7 L Hct 23.4 L MCV MCH MCHC RDW 17.2 H Plt Count Lymph % (Auto) [place] % (Auto) 8.8 H Lymph # [place] # 1.3 H Baso # Seg Neutrophils % 72.5 H Seg Neuts % (Manual) Lymphocytes % (Manual) Monocytes % (Manual) Eosinophils % (Manual) Basophils % (Manual) Nucleated RBC % Seg Neutrophils # 10.5 H Seg Neutrophils # Man Lymphocytes # (Manual) Monocytes # (Manual) Eosinophils # (Manual) Basophils # (Manual) PT INR Fibrinogen dRVVT Confirm Interp Factor V Activity POC ABG pH POC ABG pCO2 POC ABG pO2 ABG pO2 ABG HCO3 ABG Base Excess ABG Hemoglobin Oxyhemoglobin Sodium Potassium Chloride Carbon Dioxide BUN 43 H Creatinine Glucose 124 H POC Glucose 141 H Lactic Acid Calcium 8.3 L Ionized Calcium Phosphorus Magnesium 1.60 L Direct Bilirubin AST ALT Alkaline Phosphatase Lactate Dehydrogenase Troponin T C-Reactive Protein Total Protein Albumin Prealbumin Triglycerides Cholesterol LDL Cholesterol Direct HDL Cholesterol 25-OH Vitamin D Total PTH Intact Urine pH Urine WBC (Auto) Urine Creatinine Urine Total Protein Fluid Total Protein Vancomycin Trough Rheumatoid Factor Complement C4 Miscellaneous Test Crossmatch 12/11/16 12/11/16 12/11/16 11:15 17:59 23:48 WBC RBC Hgb Hct MCV MCH MCHC RDW Plt Count Lymph % (Auto) [place] % (Auto) Lymph # [place] # Baso # Seg Neutrophils % Seg Neuts % (Manual) Lymphocytes % (Manual) Monocytes % (Manual) Eosinophils % (Manual) Basophils % (Manual) Nucleated RBC % Seg Neutrophils # Seg Neutrophils # Man Lymphocytes # (Manual) Monocytes # (Manual) Eosinophils # (Manual) Basophils # (Manual) PT INR Fibrinogen dRVVT Confirm Interp Factor V Activity POC ABG pH POC ABG pCO2 POC ABG pO2 ABG pO2 ABG HCO3 ABG Base Excess ABG Hemoglobin Oxyhemoglobin Sodium Potassium Chloride Carbon Dioxide BUN Creatinine Glucose POC Glucose 188 H 106 H 119 H Lactic Acid Calcium Ionized Calcium Phosphorus Magnesium Direct Bilirubin AST ALT Alkaline Phosphatase Lactate Dehydrogenase Troponin T C-Reactive Protein Total Protein Albumin Prealbumin Triglycerides Cholesterol LDL Cholesterol Direct HDL Cholesterol 25-OH Vitamin D Total PTH Intact Urine pH Urine WBC (Auto) Urine Creatinine Urine Total Protein Fluid Total Protein Vancomycin Trough Rheumatoid Factor Complement C4 Miscellaneous Test Crossmatch 12/12/16 12/12/16 12/12/16 05:00 06:01 12:20 WBC 16.7 H RBC 2.87 L Hgb 8.0 L Hct 24.2 L MCV MCH MCHC RDW 17.6 H Plt Count Lymph % (Auto) [place] % (Auto) Lymph # [place] # 1.2 H Baso # Seg Neutrophils % 75.3 H Seg Neuts % (Manual) Lymphocytes % (Manual) Monocytes % (Manual) Eosinophils % (Manual) Basophils % (Manual) Nucleated RBC % Seg Neutrophils # 12.6 H Seg Neutrophils # Man Lymphocytes # (Manual) Monocytes # (Manual) Eosinophils # (Manual) Basophils # (Manual) PT INR Fibrinogen dRVVT Confirm Interp Factor V Activity POC ABG pH POC ABG pCO2 POC ABG pO2 ABG pO2 ABG HCO3 ABG Base Excess ABG Hemoglobin Oxyhemoglobin Sodium Potassium Chloride Carbon Dioxide BUN Creatinine Glucose POC Glucose 134 H 149 H Lactic Acid Calcium Ionized Calcium Phosphorus Magnesium Direct Bilirubin AST ALT Alkaline Phosphatase Lactate Dehydrogenase Troponin T C-Reactive Protein Total Protein Albumin Prealbumin Triglycerides Cholesterol LDL Cholesterol Direct HDL Cholesterol 25-OH Vitamin D Total PTH Intact Urine pH Urine WBC (Auto) Urine Creatinine Urine Total Protein Fluid Total Protein Vancomycin Trough Rheumatoid Factor Complement C4 Miscellaneous Test Crossmatch 12/12/16 12/12/16 12/12/16 17:38 23:01 Unknown WBC RBC Hgb Hct MCV MCH MCHC RDW Plt Count Lymph % (Auto) [place] % (Auto) Lymph # [place] # Baso # Seg Neutrophils % Seg Neuts % (Manual) Lymphocytes % (Manual) Monocytes % (Manual) Eosinophils % (Manual) Basophils % (Manual) Nucleated RBC % Seg Neutrophils # Seg Neutrophils # Man Lymphocytes # (Manual) Monocytes # (Manual) Eosinophils # (Manual) Basophils # (Manual) PT INR Fibrinogen dRVVT Confirm Interp Factor V Activity POC ABG pH POC ABG pCO2 POC ABG pO2 ABG pO2 ABG HCO3 ABG Base Excess ABG Hemoglobin Oxyhemoglobin Sodium Potassium Chloride Carbon Dioxide BUN 60 H Creatinine 1.3 H Glucose 126 H POC Glucose 127 H 144 H Lactic Acid Calcium Ionized Calcium Phosphorus Magnesium Direct Bilirubin AST ALT Alkaline Phosphatase Lactate Dehydrogenase Troponin T C-Reactive Protein Total Protein Albumin Prealbumin Triglycerides Cholesterol LDL Cholesterol Direct HDL Cholesterol 25-OH Vitamin D Total PTH Intact Urine pH Urine WBC (Auto) Urine Creatinine Urine Total Protein Fluid Total Protein Vancomycin Trough Rheumatoid Factor Complement C4 Miscellaneous Test Crossmatch 12/13/16 12/13/16 12/13/16 04:00 04:00 05:19 WBC 18.7 H RBC 2.89 L Hgb 8.3 L Hct 24.6 L MCV MCH MCHC RDW 17.5 H Plt Count Lymph % (Auto) [place] % (Auto) Lymph # [place] # 1.3 H Baso # Seg Neutrophils % 71.5 H Seg Neuts % (Manual) Lymphocytes % (Manual) Monocytes % (Manual) Eosinophils % (Manual) Basophils % (Manual) Nucleated RBC % Seg Neutrophils # 13.4 H Seg Neutrophils # Man Lymphocytes # (Manual) Monocytes # (Manual) Eosinophils # (Manual) Basophils # (Manual) PT INR Fibrinogen dRVVT Confirm Interp Factor V Activity POC ABG pH POC ABG pCO2 POC ABG pO2 ABG pO2 ABG HCO3 ABG Base Excess ABG Hemoglobin Oxyhemoglobin Sodium Potassium Chloride Carbon Dioxide BUN 73 H Creatinine 1.5 H Glucose 141 H POC Glucose 171 H Lactic Acid Calcium Ionized Calcium Phosphorus Magnesium Direct Bilirubin AST ALT Alkaline Phosphatase Lactate Dehydrogenase Troponin T C-Reactive Protein Total Protein Albumin Prealbumin Triglycerides Cholesterol LDL Cholesterol Direct HDL Cholesterol 25-OH Vitamin D Total PTH Intact Urine pH Urine WBC (Auto) Urine Creatinine Urine Total Protein Fluid Total Protein Vancomycin Trough Rheumatoid Factor Complement C4 Miscellaneous Test Crossmatch 12/13/16 12/13/16 12/14/16 12:28 16:48 00:01 WBC RBC Hgb Hct MCV MCH MCHC RDW Plt Count Lymph % (Auto) [place] % (Auto) Lymph # [place] # Baso # Seg Neutrophils % Seg Neuts % (Manual) Lymphocytes % (Manual) Monocytes % (Manual) Eosinophils % (Manual) Basophils % (Manual) Nucleated RBC % Seg Neutrophils # Seg Neutrophils # Man Lymphocytes # (Manual) Monocytes # (Manual) Eosinophils # (Manual) Basophils # (Manual) PT INR Fibrinogen dRVVT Confirm Interp Factor V Activity POC ABG pH POC ABG pCO2 POC ABG pO2 ABG pO2 ABG HCO3 ABG Base Excess ABG Hemoglobin Oxyhemoglobin Sodium Potassium Chloride Carbon Dioxide BUN Creatinine Glucose POC Glucose 206 H 173 H 139 H Lactic Acid Calcium Ionized Calcium Phosphorus Magnesium Direct Bilirubin AST ALT Alkaline Phosphatase Lactate Dehydrogenase Troponin T C-Reactive Protein Total Protein Albumin Prealbumin Triglycerides Cholesterol LDL Cholesterol Direct HDL Cholesterol 25-OH Vitamin D Total PTH Intact Urine pH Urine WBC (Auto) Urine Creatinine Urine Total Protein Fluid Total Protein Vancomycin Trough Rheumatoid Factor Complement C4 Miscellaneous Test Crossmatch 12/14/16 12/14/16 12/14/16 05:16 06:10 11:17 WBC RBC Hgb Hct MCV MCH MCHC RDW Plt Count Lymph % (Auto) [place] % (Auto) Lymph # [place] # Baso # Seg Neutrophils % Seg Neuts % (Manual) Lymphocytes % (Manual) Monocytes % (Manual) Eosinophils % (Manual) Basophils % (Manual) Nucleated RBC % Seg Neutrophils # Seg Neutrophils # Man Lymphocytes # (Manual) Monocytes # (Manual) Eosinophils # (Manual) Basophils # (Manual) PT INR Fibrinogen dRVVT Confirm Interp Factor V Activity POC ABG pH POC ABG pCO2 POC ABG pO2 ABG pO2 ABG HCO3 ABG Base Excess ABG Hemoglobin Oxyhemoglobin Sodium Potassium Chloride Carbon Dioxide BUN 57 H Creatinine 1.4 H Glucose 135 H POC Glucose 158 H 137 H Lactic Acid Calcium Ionized Calcium Phosphorus Magnesium Direct Bilirubin AST ALT Alkaline Phosphatase Lactate Dehydrogenase Troponin T C-Reactive Protein Total Protein Albumin Prealbumin Triglycerides Cholesterol LDL Cholesterol Direct HDL Cholesterol 25-OH Vitamin D Total PTH Intact Urine pH Urine WBC (Auto) Urine Creatinine Urine Total Protein Fluid Total Protein Vancomycin Trough Rheumatoid Factor Complement C4 Miscellaneous Test Crossmatch 12/14/16 12/14/16 12/15/16 17:52 23:27 04:00 WBC RBC Hgb Hct MCV MCH MCHC RDW Plt Count Lymph % (Auto) [place] % (Auto) Lymph # [place] # Baso # Seg Neutrophils % Seg Neuts % (Manual) Lymphocytes % (Manual) Monocytes % (Manual) Eosinophils % (Manual) Basophils % (Manual) Nucleated RBC % Seg Neutrophils # Seg Neutrophils # Man Lymphocytes # (Manual) Monocytes # (Manual) Eosinophils # (Manual) Basophils # (Manual) PT INR Fibrinogen dRVVT Confirm Interp Factor V Activity POC ABG pH POC ABG pCO2 POC ABG pO2 ABG pO2 ABG HCO3 ABG Base Excess ABG Hemoglobin Oxyhemoglobin Sodium Potassium Chloride 97.9 L Carbon Dioxide BUN 75 H Creatinine 1.6 H Glucose 122 H POC Glucose 149 H 163 H Lactic Acid Calcium Ionized Calcium Phosphorus 5.20 H Magnesium Direct Bilirubin AST ALT Alkaline Phosphatase Lactate Dehydrogenase Troponin T C-Reactive Protein Total Protein Albumin Prealbumin Triglycerides Cholesterol LDL Cholesterol Direct HDL Cholesterol 25-OH Vitamin D Total PTH Intact Urine pH Urine WBC (Auto) Urine Creatinine Urine Total Protein Fluid Total Protein Vancomycin Trough Rheumatoid Factor Complement C4 Miscellaneous Test Crossmatch 12/15/16 12/15/16 12/15/16 05:50 11:24 17:01 WBC RBC Hgb Hct MCV MCH MCHC RDW Plt Count Lymph % (Auto) [place] % (Auto) Lymph # [place] # Baso # Seg Neutrophils % Seg Neuts % (Manual) Lymphocytes % (Manual) Monocytes % (Manual) Eosinophils % (Manual) Basophils % (Manual) Nucleated RBC % Seg Neutrophils # Seg Neutrophils # Man Lymphocytes # (Manual) Monocytes # (Manual) Eosinophils # (Manual) Basophils # (Manual) PT INR Fibrinogen dRVVT Confirm Interp Factor V Activity POC ABG pH POC ABG pCO2 POC ABG pO2 ABG pO2 ABG HCO3 ABG Base Excess ABG Hemoglobin Oxyhemoglobin Sodium Potassium Chloride Carbon Dioxide BUN Creatinine Glucose POC Glucose 150 H 146 H 167 H Lactic Acid Calcium Ionized Calcium Phosphorus Magnesium Direct Bilirubin AST ALT Alkaline Phosphatase Lactate Dehydrogenase Troponin T C-Reactive Protein Total Protein Albumin Prealbumin Triglycerides Cholesterol LDL Cholesterol Direct HDL Cholesterol 25-OH Vitamin D Total PTH Intact Urine pH Urine WBC (Auto) Urine Creatinine Urine Total Protein Fluid Total Protein Vancomycin Trough Rheumatoid Factor Complement C4 Miscellaneous Test Crossmatch 12/15/16 12/16/16 12/16/16 23:34 05:25 11:24 WBC RBC Hgb Hct MCV MCH MCHC RDW Plt Count Lymph % (Auto) [place] % (Auto) Lymph # [place] # Baso # Seg Neutrophils % Seg Neuts % (Manual) Lymphocytes % (Manual) Monocytes % (Manual) Eosinophils % (Manual) Basophils % (Manual) Nucleated RBC % Seg Neutrophils # Seg Neutrophils # Man Lymphocytes # (Manual) Monocytes # (Manual) Eosinophils # (Manual) Basophils # (Manual) PT INR Fibrinogen dRVVT Confirm Interp Factor V Activity POC ABG pH POC ABG pCO2 POC ABG pO2 ABG pO2 ABG HCO3 ABG Base Excess ABG Hemoglobin Oxyhemoglobin Sodium Potassium Chloride Carbon Dioxide BUN Creatinine Glucose POC Glucose 127 H 139 H 165 H Lactic Acid Calcium Ionized Calcium Phosphorus Magnesium Direct Bilirubin AST ALT Alkaline Phosphatase Lactate Dehydrogenase Troponin T C-Reactive Protein Total Protein Albumin Prealbumin Triglycerides Cholesterol LDL Cholesterol Direct HDL Cholesterol 25-OH Vitamin D Total PTH Intact Urine pH Urine WBC (Auto) Urine Creatinine Urine Total Protein Fluid Total Protein Vancomycin Trough Rheumatoid Factor Complement C4 Miscellaneous Test Crossmatch 12/16/16 12/16/16 12/16/16 15:30 16:25 17:31 WBC 17.8 H RBC 2.38 L Hgb 6.4 L Hct 20.3 L MCV MCH 27 L MCHC RDW 17.4 H Plt Count Lymph % (Auto) [place] % (Auto) Lymph # [place] # Baso # Seg Neutrophils % Seg Neuts % (Manual) Lymphocytes % (Manual) Monocytes % (Manual) 10.0 H Eosinophils % (Manual) Basophils % (Manual) Nucleated RBC % Seg Neutrophils # Seg Neutrophils # Man 8.5 H Lymphocytes # (Manual) Monocytes # (Manual) 1.8 H Eosinophils # (Manual) Basophils # (Manual) PT INR Fibrinogen dRVVT Confirm Interp Factor V Activity POC ABG pH POC ABG pCO2 POC ABG pO2 ABG pO2 ABG HCO3 ABG Base Excess ABG Hemoglobin Oxyhemoglobin Sodium Potassium Chloride Carbon Dioxide BUN Creatinine Glucose POC Glucose 176 H Lactic Acid Calcium Ionized Calcium Phosphorus Magnesium Direct Bilirubin AST ALT Alkaline Phosphatase Lactate Dehydrogenase Troponin T C-Reactive Protein Total Protein Albumin Prealbumin Triglycerides Cholesterol LDL Cholesterol Direct HDL Cholesterol 25-OH Vitamin D Total PTH Intact Urine pH Urine WBC (Auto) Urine Creatinine Urine Total Protein Fluid Total Protein Vancomycin Trough Rheumatoid Factor Complement C4 Miscellaneous Test Crossmatch See Detail 12/17/16 12/17/16 12/17/16 00:14 04:00 05:00 WBC 20.0 H RBC 2.99 L Hgb 8.5 L Hct 25.7 L MCV MCH MCHC RDW 17.2 H Plt Count Lymph % (Auto) [place] % (Auto) Lymph # [place] # Baso # Seg Neutrophils % Seg Neuts % (Manual) Lymphocytes % (Manual) Monocytes % (Manual) Eosinophils % (Manual) Basophils % (Manual) Nucleated RBC % Seg Neutrophils # Seg Neutrophils # Man Lymphocytes # (Manual) Monocytes # (Manual) Eosinophils # (Manual) Basophils # (Manual) PT INR Fibrinogen dRVVT Confirm Interp Factor V Activity POC ABG pH POC ABG pCO2 POC ABG pO2 ABG pO2 ABG HCO3 ABG Base Excess ABG Hemoglobin Oxyhemoglobin Sodium Potassium Chloride 97.7 L Carbon Dioxide BUN 73 H Creatinine 1.7 H Glucose 136 H POC Glucose 148 H Lactic Acid Calcium Ionized Calcium Phosphorus 2.20 L Magnesium 2.70 H Direct Bilirubin AST ALT Alkaline Phosphatase Lactate Dehydrogenase Troponin T C-Reactive Protein Total Protein Albumin Prealbumin Triglycerides Cholesterol LDL Cholesterol Direct HDL Cholesterol 25-OH Vitamin D Total PTH Intact Urine pH Urine WBC (Auto) Urine Creatinine Urine Total Protein Fluid Total Protein Vancomycin Trough Rheumatoid Factor Complement C4 Miscellaneous Test Crossmatch 12/17/16 12/17/16 12/17/16 05:39 12:50 16:32 WBC RBC Hgb Hct MCV MCH MCHC RDW Plt Count Lymph % (Auto) [place] % (Auto) Lymph # [place] # Baso # Seg Neutrophils % Seg Neuts % (Manual) Lymphocytes % (Manual) Monocytes % (Manual) Eosinophils % (Manual) Basophils % (Manual) Nucleated RBC % Seg Neutrophils # Seg Neutrophils # Man Lymphocytes # (Manual) Monocytes # (Manual) Eosinophils # (Manual) Basophils # (Manual) PT INR Fibrinogen dRVVT Confirm Interp Factor V Activity POC ABG pH POC ABG pCO2 POC ABG pO2 ABG pO2 ABG HCO3 ABG Base Excess ABG Hemoglobin Oxyhemoglobin Sodium Potassium Chloride Carbon Dioxide BUN Creatinine Glucose POC Glucose 162 H 146 H 169 H Lactic Acid Calcium Ionized Calcium Phosphorus Magnesium Direct Bilirubin AST ALT Alkaline Phosphatase Lactate Dehydrogenase Troponin T C-Reactive Protein Total Protein Albumin Prealbumin Triglycerides Cholesterol LDL Cholesterol Direct HDL Cholesterol 25-OH Vitamin D Total PTH Intact Urine pH Urine WBC (Auto) Urine Creatinine Urine Total Protein Fluid Total Protein Vancomycin Trough Rheumatoid Factor Complement C4 Miscellaneous Test Crossmatch 12/17/16 12/18/16 12/18/16 23:57 05:00 05:32 WBC RBC Hgb Hct MCV MCH MCHC RDW Plt Count Lymph % (Auto) [place] % (Auto) Lymph # [place] # Baso # Seg Neutrophils % Seg Neuts % (Manual) Lymphocytes % (Manual) Monocytes % (Manual) Eosinophils % (Manual) Basophils % (Manual) Nucleated RBC % Seg Neutrophils # Seg Neutrophils # Man Lymphocytes # (Manual) Monocytes # (Manual) Eosinophils # (Manual) Basophils # (Manual) PT INR Fibrinogen dRVVT Confirm Interp Factor V Activity POC ABG pH POC ABG pCO2 POC ABG pO2 ABG pO2 ABG HCO3 ABG Base Excess ABG Hemoglobin Oxyhemoglobin Sodium Potassium Chloride 97.0 L Carbon Dioxide BUN 63 H Creatinine 1.4 H Glucose 174 H POC Glucose 145 H 201 H Lactic Acid Calcium Ionized Calcium Phosphorus 1.70 L D Magnesium Direct Bilirubin AST ALT Alkaline Phosphatase 257 H Lactate Dehydrogenase Troponin T C-Reactive Protein Total Protein 5.9 L Albumin 1.8 L Prealbumin Triglycerides Cholesterol LDL Cholesterol Direct HDL Cholesterol 25-OH Vitamin D Total PTH Intact Urine pH Urine WBC (Auto) Urine Creatinine Urine Total Protein Fluid Total Protein Vancomycin Trough Rheumatoid Factor Complement C4 Miscellaneous Test Crossmatch 12/18/16 12/18/16 12/18/16 11:43 16:52 23:52 WBC RBC Hgb Hct MCV MCH MCHC RDW Plt Count Lymph % (Auto) [place] % (Auto) Lymph # [place] # Baso # Seg Neutrophils % Seg Neuts % (Manual) Lymphocytes % (Manual) Monocytes % (Manual) Eosinophils % (Manual) Basophils % (Manual) Nucleated RBC % Seg Neutrophils # Seg Neutrophils # Man Lymphocytes # (Manual) Monocytes # (Manual) Eosinophils # (Manual) Basophils # (Manual) PT INR Fibrinogen dRVVT Confirm Interp Factor V Activity POC ABG pH POC ABG pCO2 POC ABG pO2 ABG pO2 ABG HCO3 ABG Base Excess ABG Hemoglobin Oxyhemoglobin Sodium Potassium Chloride Carbon Dioxide BUN Creatinine Glucose POC Glucose 177 H 110 H 162 H Lactic Acid Calcium Ionized Calcium Phosphorus Magnesium Direct Bilirubin AST ALT Alkaline Phosphatase Lactate Dehydrogenase Troponin T C-Reactive Protein Total Protein Albumin Prealbumin Triglycerides Cholesterol LDL Cholesterol Direct HDL Cholesterol 25-OH Vitamin D Total PTH Intact Urine pH Urine WBC (Auto) Urine Creatinine Urine Total Protein Fluid Total Protein Vancomycin Trough Rheumatoid Factor Complement C4 Miscellaneous Test Crossmatch 12/19/16 12/19/16 12/19/16 05:02 05:24 09:30 WBC 20.1 H RBC 2.73 L Hgb 7.6 L Hct 23.6 L MCV MCH MCHC RDW 17.6 H Plt Count Lymph % (Auto) [place] % (Auto) Lymph # [place] # Baso # Seg Neutrophils % Seg Neuts % (Manual) Lymphocytes % (Manual) 13.0 L Monocytes % (Manual) Eosinophils % (Manual) Basophils % (Manual) Nucleated RBC % 1.0 H Seg Neutrophils # Seg Neutrophils # Man 12.9 H Lymphocytes # (Manual) Monocytes # (Manual) 1.4 H Eosinophils # (Manual) Basophils # (Manual) 0.2 H PT INR Fibrinogen dRVVT Confirm Interp Factor V Activity POC ABG pH POC ABG pCO2 POC ABG pO2 ABG pO2 ABG HCO3 ABG Base Excess ABG Hemoglobin Oxyhemoglobin Sodium Potassium Chloride 97.8 L Carbon Dioxide BUN 84 H Creatinine 1.6 H Glucose 133 H POC Glucose 134 H Lactic Acid Calcium Ionized Calcium Phosphorus Magnesium Direct Bilirubin AST ALT Alkaline Phosphatase Lactate Dehydrogenase Troponin T C-Reactive Protein Total Protein Albumin Prealbumin Triglycerides Cholesterol LDL Cholesterol Direct HDL Cholesterol 25-OH Vitamin D Total PTH Intact Urine pH Urine WBC (Auto) Urine Creatinine Urine Total Protein Fluid Total Protein Vancomycin Trough Rheumatoid Factor Complement C4 Miscellaneous Test Crossmatch 12/19/16 12/19/16 12/19/16 09:36 11:12 18:29 WBC RBC Hgb Hct MCV MCH MCHC RDW Plt Count Lymph % (Auto) [place] % (Auto) Lymph # [place] # Baso # Seg Neutrophils % Seg Neuts % (Manual) Lymphocytes % (Manual) Monocytes % (Manual) Eosinophils % (Manual) Basophils % (Manual) Nucleated RBC % Seg Neutrophils # Seg Neutrophils # Man Lymphocytes # (Manual) Monocytes # (Manual) Eosinophils # (Manual) Basophils # (Manual) PT INR Fibrinogen dRVVT Confirm Interp Factor V Activity POC ABG pH 7.503 H POC ABG pCO2 30.1 L POC ABG pO2 ABG pO2 ABG HCO3 ABG Base Excess ABG Hemoglobin Oxyhemoglobin Sodium Potassium Chloride Carbon Dioxide BUN Creatinine Glucose POC Glucose 138 H 156 H Lactic Acid Calcium Ionized Calcium Phosphorus Magnesium Direct Bilirubin AST ALT Alkaline Phosphatase Lactate Dehydrogenase Troponin T C-Reactive Protein Total Protein Albumin Prealbumin Triglycerides Cholesterol LDL Cholesterol Direct HDL Cholesterol 25-OH Vitamin D Total PTH Intact Urine pH Urine WBC (Auto) Urine Creatinine Urine Total Protein Fluid Total Protein Vancomycin Trough Rheumatoid Factor Complement C4 Miscellaneous Test Crossmatch 12/20/16 12/20/16 12/20/16 00:03 06:17 07:07 WBC RBC Hgb Hct MCV MCH MCHC RDW Plt Count Lymph % (Auto) [place] % (Auto) Lymph # [place] # Baso # Seg Neutrophils % Seg Neuts % (Manual) Lymphocytes % (Manual) Monocytes % (Manual) Eosinophils % (Manual) Basophils % (Manual) Nucleated RBC % Seg Neutrophils # Seg Neutrophils # Man Lymphocytes # (Manual) Monocytes # (Manual) Eosinophils # (Manual) Basophils # (Manual) PT INR Fibrinogen dRVVT Confirm Interp Factor V Activity POC ABG pH POC ABG pCO2 POC ABG pO2 ABG pO2 ABG HCO3 ABG Base Excess ABG Hemoglobin Oxyhemoglobin Sodium Potassium Chloride 97.1 L Carbon Dioxide 20 L BUN 97 H Creatinine 1.8 H Glucose 153 H POC Glucose 152 H 175 H Lactic Acid Calcium Ionized Calcium Phosphorus Magnesium Direct Bilirubin AST ALT Alkaline Phosphatase Lactate Dehydrogenase Troponin T C-Reactive Protein Total Protein Albumin Prealbumin Triglycerides Cholesterol LDL Cholesterol Direct HDL Cholesterol 25-OH Vitamin D Total PTH Intact Urine pH Urine WBC (Auto) Urine Creatinine Urine Total Protein Fluid Total Protein Vancomycin Trough Rheumatoid Factor Complement C4 Miscellaneous Test Crossmatch 12/20/16 12/20/16 12/20/16 12:00 17:42 23:53 WBC RBC Hgb Hct MCV MCH MCHC RDW Plt Count Lymph % (Auto) [place] % (Auto) Lymph # [place] # Baso # Seg Neutrophils % Seg Neuts % (Manual) Lymphocytes % (Manual) Monocytes % (Manual) Eosinophils % (Manual) Basophils % (Manual) Nucleated RBC % Seg Neutrophils # Seg Neutrophils # Man Lymphocytes # (Manual) Monocytes # (Manual) Eosinophils # (Manual) Basophils # (Manual) PT INR Fibrinogen dRVVT Confirm Interp Factor V Activity POC ABG pH POC ABG pCO2 POC ABG pO2 ABG pO2 ABG HCO3 ABG Base Excess ABG Hemoglobin Oxyhemoglobin Sodium Potassium Chloride Carbon Dioxide BUN Creatinine Glucose POC Glucose 141 H 156 H 132 H Lactic Acid Calcium Ionized Calcium Phosphorus Magnesium Direct Bilirubin AST ALT Alkaline Phosphatase Lactate Dehydrogenase Troponin T C-Reactive Protein Total Protein Albumin Prealbumin Triglycerides Cholesterol LDL Cholesterol Direct HDL Cholesterol 25-OH Vitamin D Total PTH Intact Urine pH Urine WBC (Auto) Urine Creatinine Urine Total Protein Fluid Total Protein Vancomycin Trough Rheumatoid Factor Complement C4 Miscellaneous Test Crossmatch 12/21/16 12/21/16 12/21/16 05:49 08:50 12:19 WBC RBC Hgb Hct MCV MCH MCHC RDW Plt Count Lymph % (Auto) [place] % (Auto) Lymph # [place] # Baso # Seg Neutrophils % Seg Neuts % (Manual) Lymphocytes % (Manual) Monocytes % (Manual) Eosinophils % (Manual) Basophils % (Manual) Nucleated RBC % Seg Neutrophils # Seg Neutrophils # Man Lymphocytes # (Manual) Monocytes # (Manual) Eosinophils # (Manual) Basophils # (Manual) PT INR Fibrinogen dRVVT Confirm Interp Factor V Activity POC ABG pH POC ABG pCO2 POC ABG pO2 ABG pO2 ABG HCO3 ABG Base Excess ABG Hemoglobin Oxyhemoglobin Sodium Potassium 5.2 H D Chloride Carbon Dioxide BUN 63 H Creatinine Glucose 122 H POC Glucose 132 H 136 H Lactic Acid Calcium 8.3 L Ionized Calcium Phosphorus Magnesium Direct Bilirubin AST ALT Alkaline Phosphatase Lactate Dehydrogenase Troponin T C-Reactive Protein Total Protein Albumin Prealbumin Triglycerides Cholesterol LDL Cholesterol Direct HDL Cholesterol 25-OH Vitamin D Total PTH Intact Urine pH Urine WBC (Auto) Urine Creatinine Urine Total Protein Fluid Total Protein Vancomycin Trough Rheumatoid Factor Complement C4 Miscellaneous Test Crossmatch 12/21/16 12/21/16 12/22/16 17:22 23:58 05:49 WBC RBC Hgb Hct MCV MCH MCHC RDW Plt Count Lymph % (Auto) [place] % (Auto) Lymph # [place] # Baso # Seg Neutrophils % Seg Neuts % (Manual) Lymphocytes % (Manual) Monocytes % (Manual) Eosinophils % (Manual) Basophils % (Manual) Nucleated RBC % Seg Neutrophils # Seg Neutrophils # Man Lymphocytes # (Manual) Monocytes # (Manual) Eosinophils # (Manual) Basophils # (Manual) PT INR Fibrinogen dRVVT Confirm Interp Factor V Activity POC ABG pH POC ABG pCO2 POC ABG pO2 ABG pO2 ABG HCO3 ABG Base Excess ABG Hemoglobin Oxyhemoglobin Sodium Potassium Chloride Carbon Dioxide BUN Creatinine Glucose POC Glucose 135 H 149 H 140 H Lactic Acid Calcium Ionized Calcium Phosphorus Magnesium Direct Bilirubin AST ALT Alkaline Phosphatase Lactate Dehydrogenase Troponin T C-Reactive Protein Total Protein Albumin Prealbumin Triglycerides Cholesterol LDL Cholesterol Direct HDL Cholesterol 25-OH Vitamin D Total PTH Intact Urine pH Urine WBC (Auto) Urine Creatinine Urine Total Protein Fluid Total Protein Vancomycin Trough Rheumatoid Factor Complement C4 Miscellaneous Test Crossmatch 12/22/16 12/22/16 12/22/16 06:10 11:17 17:31 WBC RBC Hgb Hct MCV MCH MCHC RDW Plt Count Lymph % (Auto) [place] % (Auto) Lymph # [place] # Baso # Seg Neutrophils % Seg Neuts % (Manual) Lymphocytes % (Manual) Monocytes % (Manual) Eosinophils % (Manual) Basophils % (Manual) Nucleated RBC % Seg Neutrophils # Seg Neutrophils # Man Lymphocytes # (Manual) Monocytes # (Manual) Eosinophils # (Manual) Basophils # (Manual) PT INR Fibrinogen dRVVT Confirm Interp Factor V Activity POC ABG pH POC ABG pCO2 POC ABG pO2 ABG pO2 ABG HCO3 ABG Base Excess ABG Hemoglobin Oxyhemoglobin Sodium Potassium Chloride Carbon Dioxide BUN 76 H Creatinine 1.5 H Glucose 241 H POC Glucose 193 H 148 H Lactic Acid Calcium Ionized Calcium Phosphorus Magnesium Direct Bilirubin AST ALT Alkaline Phosphatase Lactate Dehydrogenase Troponin T C-Reactive Protein Total Protein Albumin Prealbumin Triglycerides Cholesterol LDL Cholesterol Direct HDL Cholesterol 25-OH Vitamin D Total PTH Intact Urine pH Urine WBC (Auto) Urine Creatinine Urine Total Protein Fluid Total Protein Vancomycin Trough Rheumatoid Factor Complement C4 Miscellaneous Test Crossmatch 12/22/16 12/23/16 12/23/16 23:58 05:00 05:26 WBC RBC Hgb Hct MCV MCH MCHC RDW Plt Count Lymph % (Auto) [place] % (Auto) Lymph # [place] # Baso # Seg Neutrophils % Seg Neuts % (Manual) Lymphocytes % (Manual) Monocytes % (Manual) Eosinophils % (Manual) Basophils % (Manual) Nucleated RBC % Seg Neutrophils # Seg Neutrophils # Man Lymphocytes # (Manual) Monocytes # (Manual) Eosinophils # (Manual) Basophils # (Manual) PT INR Fibrinogen dRVVT Confirm Interp Factor V Activity POC ABG pH POC ABG pCO2 POC ABG pO2 ABG pO2 ABG HCO3 ABG Base Excess ABG Hemoglobin Oxyhemoglobin Sodium Potassium Chloride Carbon Dioxide BUN 49 H Creatinine Glucose 143 H POC Glucose 165 H 154 H Lactic Acid Calcium 8.2 L Ionized Calcium Phosphorus Magnesium 1.60 L Direct Bilirubin AST ALT Alkaline Phosphatase Lactate Dehydrogenase Troponin T C-Reactive Protein Total Protein Albumin Prealbumin Triglycerides Cholesterol LDL Cholesterol Direct HDL Cholesterol 25-OH Vitamin D Total PTH Intact Urine pH Urine WBC (Auto) Urine Creatinine Urine Total Protein Fluid Total Protein Vancomycin Trough Rheumatoid Factor Complement C4 Miscellaneous Test Crossmatch 12/23/16 12/23/16 12/24/16 12:35 17:01 00:01 WBC RBC Hgb Hct MCV MCH MCHC RDW Plt Count Lymph % (Auto) [place] % (Auto) Lymph # [place] # Baso # Seg Neutrophils % Seg Neuts % (Manual) Lymphocytes % (Manual) Monocytes % (Manual) Eosinophils % (Manual) Basophils % (Manual) Nucleated RBC % Seg Neutrophils # Seg Neutrophils # Man Lymphocytes # (Manual) Monocytes # (Manual) Eosinophils # (Manual) Basophils # (Manual) PT INR Fibrinogen dRVVT Confirm Interp Factor V Activity POC ABG pH POC ABG pCO2 POC ABG pO2 ABG pO2 ABG HCO3 ABG Base Excess ABG Hemoglobin Oxyhemoglobin Sodium Potassium Chloride Carbon Dioxide BUN Creatinine Glucose POC Glucose 164 H 149 H 135 H Lactic Acid Calcium Ionized Calcium Phosphorus Magnesium Direct Bilirubin AST ALT Alkaline Phosphatase Lactate Dehydrogenase Troponin T C-Reactive Protein Total Protein Albumin Prealbumin Triglycerides Cholesterol LDL Cholesterol Direct HDL Cholesterol 25-OH Vitamin D Total PTH Intact Urine pH Urine WBC (Auto) Urine Creatinine Urine Total Protein Fluid Total Protein Vancomycin Trough Rheumatoid Factor Complement C4 Miscellaneous Test Crossmatch 12/24/16 12/24/16 12/24/16 05:41 07:01 11:38 WBC RBC Hgb Hct MCV MCH MCHC RDW Plt Count Lymph % (Auto) [place] % (Auto) Lymph # [place] # Baso # Seg Neutrophils % Seg Neuts % (Manual) Lymphocytes % (Manual) Monocytes % (Manual) Eosinophils % (Manual) Basophils % (Manual) Nucleated RBC % Seg Neutrophils # Seg Neutrophils # Man Lymphocytes # (Manual) Monocytes # (Manual) Eosinophils # (Manual) Basophils # (Manual) PT INR Fibrinogen dRVVT Confirm Interp Factor V Activity POC ABG pH POC ABG pCO2 POC ABG pO2 ABG pO2 ABG HCO3 ABG Base Excess ABG Hemoglobin Oxyhemoglobin Sodium Potassium Chloride Carbon Dioxide BUN 72 H Creatinine 1.3 H Glucose 130 H POC Glucose 132 H 156 H Lactic Acid Calcium 8.2 L Ionized Calcium Phosphorus Magnesium Direct Bilirubin AST ALT Alkaline Phosphatase Lactate Dehydrogenase Troponin T C-Reactive Protein Total Protein Albumin Prealbumin Triglycerides Cholesterol LDL Cholesterol Direct HDL Cholesterol 25-OH Vitamin D Total PTH Intact Urine pH Urine WBC (Auto) Urine Creatinine Urine Total Protein Fluid Total Protein Vancomycin Trough Rheumatoid Factor Complement C4 Miscellaneous Test Crossmatch 12/24/16 12/25/16 12/25/16 17:53 00:23 05:45 WBC RBC Hgb Hct MCV MCH MCHC RDW Plt Count Lymph % (Auto) [place] % (Auto) Lymph # [place] # Baso # Seg Neutrophils % Seg Neuts % (Manual) Lymphocytes % (Manual) Monocytes % (Manual) Eosinophils % (Manual) Basophils % (Manual) Nucleated RBC % Seg Neutrophils # Seg Neutrophils # Man Lymphocytes # (Manual) Monocytes # (Manual) Eosinophils # (Manual) Basophils # (Manual) PT INR Fibrinogen dRVVT Confirm Interp Factor V Activity POC ABG pH POC ABG pCO2 POC ABG pO2 ABG pO2 ABG HCO3 ABG Base Excess ABG Hemoglobin Oxyhemoglobin Sodium 146 H Potassium Chloride Carbon Dioxide BUN 51 H Creatinine Glucose 109 H POC Glucose 169 H 117 H Lactic Acid Calcium Ionized Calcium Phosphorus Magnesium Direct Bilirubin AST ALT Alkaline Phosphatase Lactate Dehydrogenase Troponin T C-Reactive Protein Total Protein Albumin Prealbumin Triglycerides Cholesterol LDL Cholesterol Direct HDL Cholesterol 25-OH Vitamin D Total PTH Intact Urine pH Urine WBC (Auto) Urine Creatinine Urine Total Protein Fluid Total Protein Vancomycin Trough Rheumatoid Factor Complement C4 Miscellaneous Test Crossmatch 12/25/16 12/25/16 12/25/16 06:43 11:29 17:14 WBC RBC Hgb Hct MCV MCH MCHC RDW Plt Count Lymph % (Auto) [place] % (Auto) Lymph # [place] # Baso # Seg Neutrophils % Seg Neuts % (Manual) Lymphocytes % (Manual) Monocytes % (Manual) Eosinophils % (Manual) Basophils % (Manual) Nucleated RBC % Seg Neutrophils # Seg Neutrophils # Man Lymphocytes # (Manual) Monocytes # (Manual) Eosinophils # (Manual) Basophils # (Manual) PT INR Fibrinogen dRVVT Confirm Interp Factor V Activity POC ABG pH POC ABG pCO2 POC ABG pO2 ABG pO2 ABG HCO3 ABG Base Excess ABG Hemoglobin Oxyhemoglobin Sodium Potassium Chloride Carbon Dioxide BUN Creatinine Glucose POC Glucose 117 H 128 H 120 H Lactic Acid Calcium Ionized Calcium Phosphorus Magnesium Direct Bilirubin AST ALT Alkaline Phosphatase Lactate Dehydrogenase Troponin T C-Reactive Protein Total Protein Albumin Prealbumin Triglycerides Cholesterol LDL Cholesterol Direct HDL Cholesterol 25-OH Vitamin D Total PTH Intact Urine pH Urine WBC (Auto) Urine Creatinine Urine Total Protein Fluid Total Protein Vancomycin Trough Rheumatoid Factor Complement C4 Miscellaneous Test Crossmatch 12/25/16 12/26/16 12/26/16 23:54 05:40 05:50 WBC 16.2 H RBC 2.32 L Hgb 6.2 L Hct 20.1 L MCV MCH 27 L MCHC RDW 18.6 H Plt Count Lymph % (Auto) [place] % (Auto) Lymph # [place] # Baso # Seg Neutrophils % Seg Neuts % (Manual) Lymphocytes % (Manual) Monocytes % (Manual) Eosinophils % (Manual) Basophils % (Manual) Nucleated RBC % Seg Neutrophils # Seg Neutrophils # Man Lymphocytes # (Manual) Monocytes # (Manual) Eosinophils # (Manual) Basophils # (Manual) PT INR Fibrinogen dRVVT Confirm Interp Factor V Activity POC ABG pH POC ABG pCO2 POC ABG pO2 ABG pO2 ABG HCO3 ABG Base Excess ABG Hemoglobin Oxyhemoglobin Sodium Potassium Chloride Carbon Dioxide BUN Creatinine Glucose POC Glucose 126 H 132 H Lactic Acid Calcium Ionized Calcium Phosphorus Magnesium Direct Bilirubin AST ALT Alkaline Phosphatase Lactate Dehydrogenase Troponin T C-Reactive Protein Total Protein Albumin Prealbumin Triglycerides Cholesterol LDL Cholesterol Direct HDL Cholesterol 25-OH Vitamin D Total PTH Intact Urine pH Urine WBC (Auto) Urine Creatinine Urine Total Protein Fluid Total Protein Vancomycin Trough Rheumatoid Factor Complement C4 Miscellaneous Test Crossmatch 12/26/16 12/26/16 12/26/16 05:50 12:17 12:33 WBC RBC Hgb Hct MCV MCH MCHC RDW Plt Count Lymph % (Auto) [place] % (Auto) Lymph # [place] # Baso # Seg Neutrophils % Seg Neuts % (Manual) Lymphocytes % (Manual) Monocytes % (Manual) Eosinophils % (Manual) Basophils % (Manual) Nucleated RBC % Seg Neutrophils # Seg Neutrophils # Man Lymphocytes # (Manual) Monocytes # (Manual) Eosinophils # (Manual) Basophils # (Manual) PT INR Fibrinogen dRVVT Confirm Interp Factor V Activity POC ABG pH POC ABG pCO2 POC ABG pO2 ABG pO2 ABG HCO3 ABG Base Excess ABG Hemoglobin Oxyhemoglobin Sodium Potassium Chloride Carbon Dioxide BUN 73 H Creatinine 1.3 H Glucose 113 H POC Glucose 117 H Lactic Acid Calcium Ionized Calcium Phosphorus Magnesium Direct Bilirubin AST ALT Alkaline Phosphatase Lactate Dehydrogenase Troponin T C-Reactive Protein Total Protein Albumin Prealbumin Triglycerides Cholesterol LDL Cholesterol Direct HDL Cholesterol 25-OH Vitamin D Total PTH Intact Urine pH Urine WBC (Auto) Urine Creatinine Urine Total Protein Fluid Total Protein Vancomycin Trough Rheumatoid Factor Complement C4 Miscellaneous Test Crossmatch See Detail 12/26/16 12/26/16 12/27/16 20:00 23:21 05:00 WBC RBC Hgb 8.4 L Hct 26.3 L D MCV MCH MCHC RDW Plt Count Lymph % (Auto) [place] % (Auto) Lymph # [place] # Baso # Seg Neutrophils % Seg Neuts % (Manual) Lymphocytes % (Manual) Monocytes % (Manual) Eosinophils % (Manual) Basophils % (Manual) Nucleated RBC % Seg Neutrophils # Seg Neutrophils # Man Lymphocytes # (Manual) Monocytes # (Manual) Eosinophils # (Manual) Basophils # (Manual) PT INR Fibrinogen dRVVT Confirm Interp Factor V Activity POC ABG pH POC ABG pCO2 POC ABG pO2 ABG pO2 ABG HCO3 ABG Base Excess ABG Hemoglobin Oxyhemoglobin Sodium Potassium Chloride Carbon Dioxide BUN 85 H Creatinine 1.6 H Glucose 118 H POC Glucose 124 H Lactic Acid Calcium Ionized Calcium Phosphorus 4.80 H Magnesium Direct Bilirubin AST ALT Alkaline Phosphatase Lactate Dehydrogenase Troponin T C-Reactive Protein Total Protein Albumin Prealbumin Triglycerides Cholesterol LDL Cholesterol Direct HDL Cholesterol 25-OH Vitamin D Total PTH Intact Urine pH Urine WBC (Auto) Urine Creatinine Urine Total Protein Fluid Total Protein Vancomycin Trough Rheumatoid Factor Complement C4 Miscellaneous Test Crossmatch 12/27/16 12/27/16 12/27/16 05:00 05:35 12:24 WBC RBC Hgb 7.6 L Hct 22.8 L MCV MCH MCHC RDW Plt Count Lymph % (Auto) [place] % (Auto) Lymph # [place] # Baso # Seg Neutrophils % Seg Neuts % (Manual) Lymphocytes % (Manual) Monocytes % (Manual) Eosinophils % (Manual) Basophils % (Manual) Nucleated RBC % Seg Neutrophils # Seg Neutrophils # Man Lymphocytes # (Manual) Monocytes # (Manual) Eosinophils # (Manual) Basophils # (Manual) PT INR Fibrinogen dRVVT Confirm Interp Factor V Activity POC ABG pH POC ABG pCO2 POC ABG pO2 ABG pO2 ABG HCO3 ABG Base Excess ABG Hemoglobin Oxyhemoglobin Sodium Potassium Chloride Carbon Dioxide BUN Creatinine Glucose POC Glucose 115 H 131 H Lactic Acid Calcium Ionized Calcium Phosphorus Magnesium Direct Bilirubin AST ALT Alkaline Phosphatase Lactate Dehydrogenase Troponin T C-Reactive Protein Total Protein Albumin Prealbumin Triglycerides Cholesterol LDL Cholesterol Direct HDL Cholesterol 25-OH Vitamin D Total PTH Intact Urine pH Urine WBC (Auto) Urine Creatinine Urine Total Protein Fluid Total Protein Vancomycin Trough Rheumatoid Factor Complement C4 Miscellaneous Test Crossmatch 12/27/16 12/28/16 12/28/16 17:16 00:18 04:00 WBC RBC Hgb Hct MCV MCH MCHC RDW Plt Count Lymph % (Auto) [place] % (Auto) Lymph # [place] # Baso # Seg Neutrophils % Seg Neuts % (Manual) Lymphocytes % (Manual) Monocytes % (Manual) Eosinophils % (Manual) Basophils % (Manual) Nucleated RBC % Seg Neutrophils # Seg Neutrophils # Man Lymphocytes # (Manual) Monocytes # (Manual) Eosinophils # (Manual) Basophils # (Manual) PT INR Fibrinogen dRVVT Confirm Interp Factor V Activity POC ABG pH POC ABG pCO2 POC ABG pO2 ABG pO2 ABG HCO3 ABG Base Excess ABG Hemoglobin Oxyhemoglobin Sodium Potassium 3.5 L Chloride Carbon Dioxide BUN 57 H Creatinine Glucose 118 H POC Glucose 136 H 120 H Lactic Acid Calcium 8.3 L Ionized Calcium Phosphorus Magnesium Direct Bilirubin AST ALT Alkaline Phosphatase Lactate Dehydrogenase Troponin T C-Reactive Protein Total Protein Albumin Prealbumin Triglycerides Cholesterol LDL Cholesterol Direct HDL Cholesterol 25-OH Vitamin D Total PTH Intact Urine pH Urine WBC (Auto) Urine Creatinine Urine Total Protein Fluid Total Protein Vancomycin Trough Rheumatoid Factor Complement C4 Miscellaneous Test Crossmatch 12/28/16 12/28/16 12/28/16 04:00 05:11 08:30 WBC 17.0 H RBC 2.58 L Hgb 7.1 L Hct 22.0 L MCV MCH MCHC RDW 17.6 H Plt Count Lymph % (Auto) 12.2 L [place] % (Auto) Lymph # [place] # 1.1 H Baso # Seg Neutrophils % 80.5 H Seg Neuts % (Manual) Lymphocytes % (Manual) Monocytes % (Manual) Eosinophils % (Manual) Basophils % (Manual) Nucleated RBC % Seg Neutrophils # 13.7 H Seg Neutrophils # Man Lymphocytes # (Manual) Monocytes # (Manual) Eosinophils # (Manual) Basophils # (Manual) PT 16.1 H INR 1.23 H Fibrinogen dRVVT Confirm Interp Factor V Activity POC ABG pH POC ABG pCO2 POC ABG pO2 ABG pO2 ABG HCO3 ABG Base Excess ABG Hemoglobin Oxyhemoglobin Sodium Potassium Chloride Carbon Dioxide BUN Creatinine Glucose POC Glucose 122 H Lactic Acid Calcium Ionized Calcium Phosphorus Magnesium Direct Bilirubin AST ALT Alkaline Phosphatase Lactate Dehydrogenase Troponin T C-Reactive Protein Total Protein Albumin Prealbumin Triglycerides Cholesterol LDL Cholesterol Direct HDL Cholesterol 25-OH Vitamin D Total PTH Intact Urine pH Urine WBC (Auto) Urine Creatinine Urine Total Protein Fluid Total Protein Vancomycin Trough Rheumatoid Factor Complement C4 Miscellaneous Test Crossmatch 12/28/16 12/28/16 12/28/16 12:27 16:32 23:46 WBC RBC Hgb Hct MCV MCH MCHC RDW Plt Count Lymph % (Auto) [place] % (Auto) Lymph # [place] # Baso # Seg Neutrophils % Seg Neuts % (Manual) Lymphocytes % (Manual) Monocytes % (Manual) Eosinophils % (Manual) Basophils % (Manual) Nucleated RBC % Seg Neutrophils # Seg Neutrophils # Man Lymphocytes # (Manual) Monocytes # (Manual) Eosinophils # (Manual) Basophils # (Manual) PT INR Fibrinogen dRVVT Confirm Interp Factor V Activity POC ABG pH POC ABG pCO2 POC ABG pO2 ABG pO2 ABG HCO3 ABG Base Excess ABG Hemoglobin Oxyhemoglobin Sodium Potassium Chloride Carbon Dioxide BUN Creatinine Glucose POC Glucose 127 H 117 H 108 H Lactic Acid Calcium Ionized Calcium Phosphorus Magnesium Direct Bilirubin AST ALT Alkaline Phosphatase Lactate Dehydrogenase Troponin T C-Reactive Protein Total Protein Albumin Prealbumin Triglycerides Cholesterol LDL Cholesterol Direct HDL Cholesterol 25-OH Vitamin D Total PTH Intact Urine pH Urine WBC (Auto) Urine Creatinine Urine Total Protein Fluid Total Protein Vancomycin Trough Rheumatoid Factor Complement C4 Miscellaneous Test Crossmatch 12/29/16 12/29/16 12/29/16 05:15 05:15 05:32 WBC RBC Hgb Hct MCV MCH MCHC RDW Plt Count Lymph % (Auto) [place] % (Auto) Lymph # [place] # Baso # Seg Neutrophils % Seg Neuts % (Manual) Lymphocytes % (Manual) Monocytes % (Manual) Eosinophils % (Manual) Basophils % (Manual) Nucleated RBC % Seg Neutrophils # Seg Neutrophils # Man Lymphocytes # (Manual) Monocytes # (Manual) Eosinophils # (Manual) Basophils # (Manual) PT INR Fibrinogen dRVVT Confirm Interp Factor V Activity POC ABG pH POC ABG pCO2 POC ABG pO2 ABG pO2 ABG HCO3 ABG Base Excess ABG Hemoglobin Oxyhemoglobin Sodium Potassium Chloride Carbon Dioxide BUN 74 H Creatinine 1.6 H Glucose 111 H POC Glucose 123 H Lactic Acid Calcium Ionized Calcium Phosphorus Magnesium Direct Bilirubin AST ALT Alkaline Phosphatase Lactate Dehydrogenase Troponin T C-Reactive Protein Total Protein Albumin Prealbumin 0.110 L Triglycerides Cholesterol LDL Cholesterol Direct HDL Cholesterol 25-OH Vitamin D Total PTH Intact Urine pH Urine WBC (Auto) Urine Creatinine Urine Total Protein Fluid Total Protein Vancomycin Trough Rheumatoid Factor Complement C4 Miscellaneous Test Crossmatch 12/29/16 12/29/16 12/29/16 11:43 13:45 14:00 WBC 13.8 H RBC 2.26 L Hgb 6.3 L Hct 20.4 L MCV MCH MCHC RDW 18.3 H Plt Count Lymph % (Auto) [place] % (Auto) Lymph # [place] # 0.9 H Baso # Seg Neutrophils % 78.6 H Seg Neuts % (Manual) Lymphocytes % (Manual) Monocytes % (Manual) Eosinophils % (Manual) Basophils % (Manual) Nucleated RBC % Seg Neutrophils # 10.8 H Seg Neutrophils # Man Lymphocytes # (Manual) Monocytes # (Manual) Eosinophils # (Manual) Basophils # (Manual) PT INR Fibrinogen dRVVT Confirm Interp Factor V Activity POC ABG pH POC ABG pCO2 POC ABG pO2 ABG pO2 ABG HCO3 ABG Base Excess ABG Hemoglobin Oxyhemoglobin Sodium Potassium Chloride Carbon Dioxide BUN Creatinine Glucose POC Glucose 133 H Lactic Acid Calcium Ionized Calcium Phosphorus Magnesium Direct Bilirubin AST ALT Alkaline Phosphatase Lactate Dehydrogenase Troponin T C-Reactive Protein Total Protein Albumin Prealbumin Triglycerides Cholesterol LDL Cholesterol Direct HDL Cholesterol 25-OH Vitamin D Total PTH Intact Urine pH Urine WBC (Auto) Urine Creatinine Urine Total Protein Fluid Total Protein Vancomycin Trough Rheumatoid Factor Complement C4 Miscellaneous Test Crossmatch See Detail 12/29/16 12/29/16 12/29/16 17:03 23:15 23:22 WBC RBC Hgb 7.3 L Hct 22.3 L MCV MCH MCHC RDW Plt Count Lymph % (Auto) [place] % (Auto) Lymph # [place] # Baso # Seg Neutrophils % Seg Neuts % (Manual) Lymphocytes % (Manual) Monocytes % (Manual) Eosinophils % (Manual) Basophils % (Manual) Nucleated RBC % Seg Neutrophils # Seg Neutrophils # Man Lymphocytes # (Manual) Monocytes # (Manual) Eosinophils # (Manual) Basophils # (Manual) PT INR Fibrinogen dRVVT Confirm Interp Factor V Activity POC ABG pH POC ABG pCO2 POC ABG pO2 ABG pO2 ABG HCO3 ABG Base Excess ABG Hemoglobin Oxyhemoglobin Sodium Potassium Chloride Carbon Dioxide BUN Creatinine Glucose POC Glucose 139 H 120 H Lactic Acid Calcium Ionized Calcium Phosphorus Magnesium Direct Bilirubin AST ALT Alkaline Phosphatase Lactate Dehydrogenase Troponin T C-Reactive Protein Total Protein Albumin Prealbumin Triglycerides Cholesterol LDL Cholesterol Direct HDL Cholesterol 25-OH Vitamin D Total PTH Intact Urine pH Urine WBC (Auto) Urine Creatinine Urine Total Protein Fluid Total Protein Vancomycin Trough Rheumatoid Factor Complement C4 Miscellaneous Test Crossmatch 12/30/16 12/30/16 12/30/16 04:20 04:20 05:43 WBC 15.6 H RBC 2.81 L Hgb 8.0 L Hct 24.0 L MCV MCH MCHC RDW 16.9 H Plt Count Lymph % (Auto) [place] % (Auto) Lymph # [place] # 1.0 H Baso # Seg Neutrophils % 76.2 H Seg Neuts % (Manual) Lymphocytes % (Manual) Monocytes % (Manual) Eosinophils % (Manual) Basophils % (Manual) Nucleated RBC % Seg Neutrophils # 11.9 H Seg Neutrophils # Man Lymphocytes # (Manual) Monocytes # (Manual) Eosinophils # (Manual) Basophils # (Manual) PT INR Fibrinogen dRVVT Confirm Interp Factor V Activity POC ABG pH POC ABG pCO2 POC ABG pO2 ABG pO2 ABG HCO3 ABG Base Excess ABG Hemoglobin Oxyhemoglobin Sodium Potassium Chloride Carbon Dioxide BUN 87 H Creatinine 1.8 H Glucose 119 H POC Glucose 115 H Lactic Acid Calcium Ionized Calcium Phosphorus Magnesium Direct Bilirubin AST ALT Alkaline Phosphatase Lactate Dehydrogenase Troponin T C-Reactive Protein Total Protein Albumin Prealbumin Triglycerides Cholesterol LDL Cholesterol Direct HDL Cholesterol 25-OH Vitamin D Total PTH Intact Urine pH Urine WBC (Auto) Urine Creatinine Urine Total Protein Fluid Total Protein Vancomycin Trough Rheumatoid Factor Complement C4 Miscellaneous Test Crossmatch 12/30/16 12/30/16 12/31/16 17:27 23:21 04:00 WBC RBC Hgb Hct MCV MCH MCHC RDW Plt Count Lymph % (Auto) [place] % (Auto) Lymph # [place] # Baso # Seg Neutrophils % Seg Neuts % (Manual) Lymphocytes % (Manual) Monocytes % (Manual) Eosinophils % (Manual) Basophils % (Manual) Nucleated RBC % Seg Neutrophils # Seg Neutrophils # Man Lymphocytes # (Manual) Monocytes # (Manual) Eosinophils # (Manual) Basophils # (Manual) PT INR Fibrinogen dRVVT Confirm Interp Factor V Activity POC ABG pH POC ABG pCO2 POC ABG pO2 ABG pO2 ABG HCO3 ABG Base Excess ABG Hemoglobin Oxyhemoglobin Sodium Potassium Chloride Carbon Dioxide BUN 59 H Creatinine Glucose 298 H POC Glucose 144 H 125 H Lactic Acid Calcium Ionized Calcium Phosphorus Magnesium Direct Bilirubin AST ALT Alkaline Phosphatase Lactate Dehydrogenase Troponin T C-Reactive Protein Total Protein Albumin Prealbumin Triglycerides Cholesterol LDL Cholesterol Direct HDL Cholesterol 25-OH Vitamin D Total PTH Intact Urine pH Urine WBC (Auto) Urine Creatinine Urine Total Protein Fluid Total Protein Vancomycin Trough Rheumatoid Factor Complement C4 Miscellaneous Test Crossmatch 12/31/16 12/31/16 12/31/16 05:11 12:18 18:17 WBC RBC Hgb Hct MCV MCH MCHC RDW Plt Count Lymph % (Auto) [place] % (Auto) Lymph # [place] # Baso # Seg Neutrophils % Seg Neuts % (Manual) Lymphocytes % (Manual) Monocytes % (Manual) Eosinophils % (Manual) Basophils % (Manual) Nucleated RBC % Seg Neutrophils # Seg Neutrophils # Man Lymphocytes # (Manual) Monocytes # (Manual) Eosinophils # (Manual) Basophils # (Manual) PT INR Fibrinogen dRVVT Confirm Interp Factor V Activity POC ABG pH POC ABG pCO2 POC ABG pO2 ABG pO2 ABG HCO3 ABG Base Excess ABG Hemoglobin Oxyhemoglobin Sodium Potassium Chloride Carbon Dioxide BUN Creatinine Glucose POC Glucose 167 H 125 H 133 H Lactic Acid Calcium Ionized Calcium Phosphorus Magnesium Direct Bilirubin AST ALT Alkaline Phosphatase Lactate Dehydrogenase Troponin T C-Reactive Protein Total Protein Albumin Prealbumin Triglycerides Cholesterol LDL Cholesterol Direct HDL Cholesterol 25-OH Vitamin D Total PTH Intact Urine pH Urine WBC (Auto) Urine Creatinine Urine Total Protein Fluid Total Protein Vancomycin Trough Rheumatoid Factor Complement C4 Miscellaneous Test Crossmatch 12/31/16 01/01/17 01/01/17 23:55 05:00 05:12 WBC RBC Hgb Hct MCV MCH MCHC RDW Plt Count Lymph % (Auto) [place] % (Auto) Lymph # [place] # Baso # Seg Neutrophils % Seg Neuts % (Manual) Lymphocytes % (Manual) Monocytes % (Manual) Eosinophils % (Manual) Basophils % (Manual) Nucleated RBC % Seg Neutrophils # Seg Neutrophils # Man Lymphocytes # (Manual) Monocytes # (Manual) Eosinophils # (Manual) Basophils # (Manual) PT INR Fibrinogen dRVVT Confirm Interp Factor V Activity POC ABG pH POC ABG pCO2 POC ABG pO2 ABG pO2 ABG HCO3 ABG Base Excess ABG Hemoglobin Oxyhemoglobin Sodium Potassium Chloride Carbon Dioxide BUN 76 H Creatinine 1.5 H Glucose 109 H POC Glucose 129 H 129 H Lactic Acid Calcium Ionized Calcium Phosphorus Magnesium Direct Bilirubin AST ALT Alkaline Phosphatase 536 H Lactate Dehydrogenase Troponin T C-Reactive Protein Total Protein Albumin 1.5 L Prealbumin Triglycerides Cholesterol LDL Cholesterol Direct HDL Cholesterol 25-OH Vitamin D Total PTH Intact Urine pH Urine WBC (Auto) Urine Creatinine Urine Total Protein Fluid Total Protein Vancomycin Trough Rheumatoid Factor Complement C4 Miscellaneous Test Crossmatch 01/01/17 01/01/17 01/01/17 12:25 17:01 23:32 WBC RBC Hgb Hct MCV MCH MCHC RDW Plt Count Lymph % (Auto) [place] % (Auto) Lymph # [place] # Baso # Seg Neutrophils % Seg Neuts % (Manual) Lymphocytes % (Manual) Monocytes % (Manual) Eosinophils % (Manual) Basophils % (Manual) Nucleated RBC % Seg Neutrophils # Seg Neutrophils # Man Lymphocytes # (Manual) Monocytes # (Manual) Eosinophils # (Manual) Basophils # (Manual) PT INR Fibrinogen dRVVT Confirm Interp Factor V Activity POC ABG pH POC ABG pCO2 POC ABG pO2 ABG pO2 ABG HCO3 ABG Base Excess ABG Hemoglobin Oxyhemoglobin Sodium Potassium Chloride Carbon Dioxide BUN Creatinine Glucose POC Glucose 140 H 142 H 112 H Lactic Acid Calcium Ionized Calcium Phosphorus Magnesium Direct Bilirubin AST ALT Alkaline Phosphatase Lactate Dehydrogenase Troponin T C-Reactive Protein Total Protein Albumin Prealbumin Triglycerides Cholesterol LDL Cholesterol Direct HDL Cholesterol 25-OH Vitamin D Total PTH Intact Urine pH Urine WBC (Auto) Urine Creatinine Urine Total Protein Fluid Total Protein Vancomycin Trough Rheumatoid Factor Complement C4 Miscellaneous Test Crossmatch 01/02/17 01/02/17 01/02/17 04:56 06:00 11:37 WBC RBC Hgb Hct MCV MCH MCHC RDW Plt Count Lymph % (Auto) [place] % (Auto) Lymph # [place] # Baso # Seg Neutrophils % Seg Neuts % (Manual) Lymphocytes % (Manual) Monocytes % (Manual) Eosinophils % (Manual) Basophils % (Manual) Nucleated RBC % Seg Neutrophils # Seg Neutrophils # Man Lymphocytes # (Manual) Monocytes # (Manual) Eosinophils # (Manual) Basophils # (Manual) PT INR Fibrinogen dRVVT Confirm Interp Factor V Activity POC ABG pH POC ABG pCO2 POC ABG pO2 ABG pO2 ABG HCO3 ABG Base Excess ABG Hemoglobin Oxyhemoglobin Sodium Potassium Chloride Carbon Dioxide BUN 88 H Creatinine 1.7 H Glucose 113 H POC Glucose 136 H 200 H Lactic Acid Calcium Ionized Calcium Phosphorus Magnesium Direct Bilirubin AST ALT Alkaline Phosphatase Lactate Dehydrogenase Troponin T C-Reactive Protein Total Protein Albumin Prealbumin Triglycerides Cholesterol LDL Cholesterol Direct HDL Cholesterol 25-OH Vitamin D Total PTH Intact Urine pH Urine WBC (Auto) Urine Creatinine Urine Total Protein Fluid Total Protein Vancomycin Trough Rheumatoid Factor Complement C4 Miscellaneous Test Crossmatch 01/02/17 01/02/17 01/03/17 17:42 22:52 04:54 WBC RBC Hgb Hct MCV MCH MCHC RDW Plt Count Lymph % (Auto) [place] % (Auto) Lymph # [place] # Baso # Seg Neutrophils % Seg Neuts % (Manual) Lymphocytes % (Manual) Monocytes % (Manual) Eosinophils % (Manual) Basophils % (Manual) Nucleated RBC % Seg Neutrophils # Seg Neutrophils # Man Lymphocytes # (Manual) Monocytes # (Manual) Eosinophils # (Manual) Basophils # (Manual) PT INR Fibrinogen dRVVT Confirm Interp Factor V Activity POC ABG pH POC ABG pCO2 POC ABG pO2 ABG pO2 ABG HCO3 ABG Base Excess ABG Hemoglobin Oxyhemoglobin Sodium Potassium Chloride Carbon Dioxide BUN Creatinine Glucose POC Glucose 112 H 133 H 111 H Lactic Acid Calcium Ionized Calcium Phosphorus Magnesium Direct Bilirubin AST ALT Alkaline Phosphatase Lactate Dehydrogenase Troponin T C-Reactive Protein Total Protein Albumin Prealbumin Triglycerides Cholesterol LDL Cholesterol Direct HDL Cholesterol 25-OH Vitamin D Total PTH Intact Urine pH Urine WBC (Auto) Urine Creatinine Urine Total Protein Fluid Total Protein Vancomycin Trough Rheumatoid Factor Complement C4 Miscellaneous Test Crossmatch 01/03/17 01/03/17 01/03/17 05:00 05:00 14:02 WBC 11.2 H RBC 2.56 L Hgb 7.2 L Hct 22.3 L MCV MCH MCHC RDW 17.3 H Plt Count Lymph % (Auto) [place] % (Auto) 10.0 H Lymph # [place] # 1.1 H Baso # Seg Neutrophils % 70.5 H Seg Neuts % (Manual) Lymphocytes % (Manual) Monocytes % (Manual) Eosinophils % (Manual) Basophils % (Manual) Nucleated RBC % Seg Neutrophils # 7.9 H Seg Neutrophils # Man Lymphocytes # (Manual) Monocytes # (Manual) Eosinophils # (Manual) Basophils # (Manual) PT INR Fibrinogen dRVVT Confirm Interp Factor V Activity POC ABG pH POC ABG pCO2 POC ABG pO2 ABG pO2 ABG HCO3 ABG Base Excess ABG Hemoglobin Oxyhemoglobin Sodium Potassium Chloride Carbon Dioxide BUN 60 H Creatinine 1.3 H Glucose 110 H POC Glucose 119 H Lactic Acid Calcium Ionized Calcium Phosphorus Magnesium Direct Bilirubin AST ALT Alkaline Phosphatase Lactate Dehydrogenase Troponin T C-Reactive Protein Total Protein Albumin Prealbumin Triglycerides Cholesterol LDL Cholesterol Direct HDL Cholesterol 25-OH Vitamin D Total PTH Intact Urine pH Urine WBC (Auto) Urine Creatinine Urine Total Protein Fluid Total Protein Vancomycin Trough Rheumatoid Factor Complement C4 Miscellaneous Test Crossmatch 01/03/17 01/03/17 01/04/17 18:13 23:40 05:57 WBC RBC Hgb Hct MCV MCH MCHC RDW Plt Count Lymph % (Auto) [place] % (Auto) Lymph # [place] # Baso # Seg Neutrophils % Seg Neuts % (Manual) Lymphocytes % (Manual) Monocytes % (Manual) Eosinophils % (Manual) Basophils % (Manual) Nucleated RBC % Seg Neutrophils # Seg Neutrophils # Man Lymphocytes # (Manual) Monocytes # (Manual) Eosinophils # (Manual) Basophils # (Manual) PT INR Fibrinogen dRVVT Confirm Interp Factor V Activity POC ABG pH POC ABG pCO2 POC ABG pO2 ABG pO2 ABG HCO3 ABG Base Excess ABG Hemoglobin Oxyhemoglobin Sodium Potassium Chloride Carbon Dioxide BUN Creatinine Glucose POC Glucose 107 H 129 H 111 H Lactic Acid Calcium Ionized Calcium Phosphorus Magnesium Direct Bilirubin AST ALT Alkaline Phosphatase Lactate Dehydrogenase Troponin T C-Reactive Protein Total Protein Albumin Prealbumin Triglycerides Cholesterol LDL Cholesterol Direct HDL Cholesterol 25-OH Vitamin D Total PTH Intact Urine pH Urine WBC (Auto) Urine Creatinine Urine Total Protein Fluid Total Protein Vancomycin Trough Rheumatoid Factor Complement C4 Miscellaneous Test Crossmatch 01/04/17 01/04/17 01/04/17 12:46 15:27 17:11 WBC RBC Hgb Hct MCV MCH MCHC RDW Plt Count Lymph % (Auto) [place] % (Auto) Lymph # [place] # Baso # Seg Neutrophils % Seg Neuts % (Manual) Lymphocytes % (Manual) Monocytes % (Manual) Eosinophils % (Manual) Basophils % (Manual) Nucleated RBC % Seg Neutrophils # Seg Neutrophils # Man Lymphocytes # (Manual) Monocytes # (Manual) Eosinophils # (Manual) Basophils # (Manual) PT INR Fibrinogen dRVVT Confirm Interp Factor V Activity POC ABG pH POC ABG pCO2 POC ABG pO2 ABG pO2 ABG HCO3 ABG Base Excess ABG Hemoglobin Oxyhemoglobin Sodium Potassium Chloride Carbon Dioxide BUN 43 H Creatinine Glucose 124 H POC Glucose 159 H 125 H Lactic Acid Calcium 8.0 L Ionized Calcium Phosphorus 2.10 L Magnesium Direct Bilirubin AST ALT Alkaline Phosphatase Lactate Dehydrogenase Troponin T C-Reactive Protein Total Protein Albumin Prealbumin Triglycerides Cholesterol LDL Cholesterol Direct HDL Cholesterol 25-OH Vitamin D Total PTH Intact Urine pH Urine WBC (Auto) Urine Creatinine Urine Total Protein Fluid Total Protein Vancomycin Trough Rheumatoid Factor Complement C4 Miscellaneous Test Crossmatch 01/04/17 01/05/17 01/05/17 23:31 04:00 05:46 WBC RBC Hgb Hct MCV MCH MCHC RDW Plt Count Lymph % (Auto) [place] % (Auto) Lymph # [place] # Baso # Seg Neutrophils % Seg Neuts % (Manual) Lymphocytes % (Manual) Monocytes % (Manual) Eosinophils % (Manual) Basophils % (Manual) Nucleated RBC % Seg Neutrophils # Seg Neutrophils # Man Lymphocytes # (Manual) Monocytes # (Manual) Eosinophils # (Manual) Basophils # (Manual) PT INR Fibrinogen dRVVT Confirm Interp Factor V Activity POC ABG pH POC ABG pCO2 POC ABG pO2 ABG pO2 ABG HCO3 ABG Base Excess ABG Hemoglobin Oxyhemoglobin Sodium Potassium Chloride Carbon Dioxide BUN 52 H Creatinine 1.3 H Glucose 113 H POC Glucose 123 H 118 H Lactic Acid Calcium Ionized Calcium Phosphorus 2.40 L Magnesium Direct Bilirubin AST ALT Alkaline Phosphatase Lactate Dehydrogenase Troponin T C-Reactive Protein Total Protein Albumin Prealbumin Triglycerides Cholesterol LDL Cholesterol Direct HDL Cholesterol 25-OH Vitamin D Total PTH Intact Urine pH Urine WBC (Auto) Urine Creatinine Urine Total Protein Fluid Total Protein Vancomycin Trough Rheumatoid Factor Complement C4 Miscellaneous Test Crossmatch 01/05/17 01/05/17 01/05/17 11:41 17:48 23:27 WBC RBC Hgb Hct MCV MCH MCHC RDW Plt Count Lymph % (Auto) [place] % (Auto) Lymph # [place] # Baso # Seg Neutrophils % Seg Neuts % (Manual) Lymphocytes % (Manual) Monocytes % (Manual) Eosinophils % (Manual) Basophils % (Manual) Nucleated RBC % Seg Neutrophils # Seg Neutrophils # Man Lymphocytes # (Manual) Monocytes # (Manual) Eosinophils # (Manual) Basophils # (Manual) PT INR Fibrinogen dRVVT Confirm Interp Factor V Activity POC ABG pH POC ABG pCO2 POC ABG pO2 ABG pO2 ABG HCO3 ABG Base Excess ABG Hemoglobin Oxyhemoglobin Sodium Potassium Chloride Carbon Dioxide BUN Creatinine Glucose POC Glucose 163 H 142 H 155 H Lactic Acid Calcium Ionized Calcium Phosphorus Magnesium Direct Bilirubin AST ALT Alkaline Phosphatase Lactate Dehydrogenase Troponin T C-Reactive Protein Total Protein Albumin Prealbumin Triglycerides Cholesterol LDL Cholesterol Direct HDL Cholesterol 25-OH Vitamin D Total PTH Intact Urine pH Urine WBC (Auto) Urine Creatinine Urine Total Protein Fluid Total Protein Vancomycin Trough Rheumatoid Factor Complement C4 Miscellaneous Test Crossmatch 01/06/17 01/06/17 01/06/17 05:20 07:35 11:18 WBC RBC Hgb Hct MCV MCH MCHC RDW Plt Count Lymph % (Auto) [place] % (Auto) Lymph # [place] # Baso # Seg Neutrophils % Seg Neuts % (Manual) Lymphocytes % (Manual) Monocytes % (Manual) Eosinophils % (Manual) Basophils % (Manual) Nucleated RBC % Seg Neutrophils # Seg Neutrophils # Man Lymphocytes # (Manual) Monocytes # (Manual) Eosinophils # (Manual) Basophils # (Manual) PT INR Fibrinogen dRVVT Confirm Interp Factor V Activity POC ABG pH POC ABG pCO2 POC ABG pO2 ABG pO2 ABG HCO3 ABG Base Excess ABG Hemoglobin Oxyhemoglobin Sodium Potassium Chloride Carbon Dioxide BUN 74 H Creatinine 1.6 H Glucose 135 H POC Glucose 108 H 149 H Lactic Acid Calcium Ionized Calcium Phosphorus Magnesium Direct Bilirubin AST ALT Alkaline Phosphatase Lactate Dehydrogenase Troponin T C-Reactive Protein Total Protein Albumin Prealbumin Triglycerides Cholesterol LDL Cholesterol Direct HDL Cholesterol 25-OH Vitamin D Total PTH Intact Urine pH Urine WBC (Auto) Urine Creatinine Urine Total Protein Fluid Total Protein Vancomycin Trough Rheumatoid Factor Complement C4 Miscellaneous Test Crossmatch 01/06/17 01/07/17 01/07/17 17:17 00:23 05:31 WBC RBC Hgb Hct MCV MCH MCHC RDW Plt Count Lymph % (Auto) [place] % (Auto) Lymph # [place] # Baso # Seg Neutrophils % Seg Neuts % (Manual) Lymphocytes % (Manual) Monocytes % (Manual) Eosinophils % (Manual) Basophils % (Manual) Nucleated RBC % Seg Neutrophils # Seg Neutrophils # Man Lymphocytes # (Manual) Monocytes # (Manual) Eosinophils # (Manual) Basophils # (Manual) PT INR Fibrinogen dRVVT Confirm Interp Factor V Activity POC ABG pH POC ABG pCO2 POC ABG pO2 ABG pO2 ABG HCO3 ABG Base Excess ABG Hemoglobin Oxyhemoglobin Sodium Potassium Chloride Carbon Dioxide BUN Creatinine Glucose POC Glucose 146 H 165 H 153 H Lactic Acid Calcium Ionized Calcium Phosphorus Magnesium Direct Bilirubin AST ALT Alkaline Phosphatase Lactate Dehydrogenase Troponin T C-Reactive Protein Total Protein Albumin Prealbumin Triglycerides Cholesterol LDL Cholesterol Direct HDL Cholesterol 25-OH Vitamin D Total PTH Intact Urine pH Urine WBC (Auto) Urine Creatinine Urine Total Protein Fluid Total Protein Vancomycin Trough Rheumatoid Factor Complement C4 Miscellaneous Test Crossmatch 01/07/17 01/07/17 01/07/17 06:00 11:39 17:11 WBC RBC Hgb Hct MCV MCH MCHC RDW Plt Count Lymph % (Auto) [place] % (Auto) Lymph # [place] # Baso # Seg Neutrophils % Seg Neuts % (Manual) Lymphocytes % (Manual) Monocytes % (Manual) Eosinophils % (Manual) Basophils % (Manual) Nucleated RBC % Seg Neutrophils # Seg Neutrophils # Man Lymphocytes # (Manual) Monocytes # (Manual) Eosinophils # (Manual) Basophils # (Manual) PT INR Fibrinogen dRVVT Confirm Interp Factor V Activity POC ABG pH POC ABG pCO2 POC ABG pO2 ABG pO2 ABG HCO3 ABG Base Excess ABG Hemoglobin Oxyhemoglobin Sodium Potassium Chloride Carbon Dioxide BUN 42 H Creatinine Glucose 175 H POC Glucose 163 H 163 H Lactic Acid Calcium Ionized Calcium Phosphorus 2.40 L D Magnesium Direct Bilirubin AST ALT Alkaline Phosphatase Lactate Dehydrogenase Troponin T C-Reactive Protein Total Protein Albumin Prealbumin Triglycerides Cholesterol LDL Cholesterol Direct HDL Cholesterol 25-OH Vitamin D Total PTH Intact Urine pH Urine WBC (Auto) Urine Creatinine Urine Total Protein Fluid Total Protein Vancomycin Trough Rheumatoid Factor Complement C4 Miscellaneous Test Crossmatch 01/07/17 01/08/17 01/08/17 23:40 05:00 05:00 WBC 27.4 H RBC 2.27 L Hgb 6.1 L Hct 20.4 L MCV MCH 27 L MCHC RDW 17.8 H Plt Count Lymph % (Auto) [place] % (Auto) Lymph # [place] # Baso # Seg Neutrophils % Seg Neuts % (Manual) Lymphocytes % (Manual) Monocytes % (Manual) Eosinophils % (Manual) Basophils % (Manual) Nucleated RBC % Seg Neutrophils # Seg Neutrophils # Man Lymphocytes # (Manual) Monocytes # (Manual) Eosinophils # (Manual) Basophils # (Manual) PT INR Fibrinogen dRVVT Confirm Interp Factor V Activity POC ABG pH POC ABG pCO2 POC ABG pO2 ABG pO2 ABG HCO3 ABG Base Excess ABG Hemoglobin Oxyhemoglobin Sodium Potassium Chloride Carbon Dioxide 16 L D BUN 62 H Creatinine 1.6 H D Glucose 103 H POC Glucose 135 H Lactic Acid Calcium Ionized Calcium Phosphorus Magnesium Direct Bilirubin AST ALT Alkaline Phosphatase Lactate Dehydrogenase Troponin T C-Reactive Protein Total Protein Albumin Prealbumin Triglycerides Cholesterol LDL Cholesterol Direct HDL Cholesterol 25-OH Vitamin D Total PTH Intact Urine pH Urine WBC (Auto) Urine Creatinine Urine Total Protein Fluid Total Protein Vancomycin Trough Rheumatoid Factor Complement C4 Miscellaneous Test Crossmatch 01/08/17 01/08/17 01/08/17 05:25 10:37 10:37 WBC RBC Hgb Hct MCV MCH MCHC RDW Plt Count Lymph % (Auto) [place] % (Auto) Lymph # [place] # Baso # Seg Neutrophils % Seg Neuts % (Manual) Lymphocytes % (Manual) Monocytes % (Manual) Eosinophils % (Manual) Basophils % (Manual) Nucleated RBC % Seg Neutrophils # Seg Neutrophils # Man Lymphocytes # (Manual) Monocytes # (Manual) Eosinophils # (Manual) Basophils # (Manual) PT INR Fibrinogen dRVVT Confirm Interp Factor V Activity POC ABG pH POC ABG pCO2 POC ABG pO2 ABG pO2 ABG HCO3 ABG Base Excess ABG Hemoglobin Oxyhemoglobin Sodium Potassium Chloride Carbon Dioxide BUN Creatinine Glucose POC Glucose 106 H Lactic Acid Calcium Ionized Calcium Phosphorus Magnesium Direct Bilirubin AST ALT Alkaline Phosphatase Lactate Dehydrogenase Troponin T C-Reactive Protein 24.40 H Total Protein Albumin Prealbumin Triglycerides Cholesterol LDL Cholesterol Direct HDL Cholesterol 25-OH Vitamin D Total PTH Intact Urine pH Urine WBC (Auto) Urine Creatinine Urine Total Protein Fluid Total Protein Vancomycin Trough Rheumatoid Factor Complement C4 Miscellaneous Test Crossmatch See Detail 01/08/17 01/08/17 01/08/17 10:37 11:33 15:15 WBC RBC Hgb Hct MCV MCH MCHC RDW Plt Count Lymph % (Auto) [place] % (Auto) Lymph # [place] # Baso # Seg Neutrophils % Seg Neuts % (Manual) Lymphocytes % (Manual) Monocytes % (Manual) Eosinophils % (Manual) Basophils % (Manual) Nucleated RBC % Seg Neutrophils # Seg Neutrophils # Man Lymphocytes # (Manual) Monocytes # (Manual) Eosinophils # (Manual) Basophils # (Manual) PT INR Fibrinogen dRVVT Confirm Interp Factor V Activity POC ABG pH POC ABG pCO2 POC ABG pO2 ABG pO2 ABG HCO3 ABG Base Excess ABG Hemoglobin Oxyhemoglobin Sodium Potassium Chloride Carbon Dioxide BUN Creatinine Glucose POC Glucose 157 H Lactic Acid 9.70 H* 9.10 H* Calcium Ionized Calcium Phosphorus Magnesium Direct Bilirubin AST ALT Alkaline Phosphatase Lactate Dehydrogenase Troponin T C-Reactive Protein Total Protein Albumin Prealbumin Triglycerides Cholesterol LDL Cholesterol Direct HDL Cholesterol 25-OH Vitamin D Total PTH Intact Urine pH Urine WBC (Auto) Urine Creatinine Urine Total Protein Fluid Total Protein Vancomycin Trough Rheumatoid Factor Complement C4 Miscellaneous Test Crossmatch 01/08/17 01/08/17 01/09/17 17:19 23:12 04:40 WBC RBC Hgb Hct MCV MCH MCHC RDW Plt Count Lymph % (Auto) [place] % (Auto) Lymph # [place] # Baso # Seg Neutrophils % Seg Neuts % (Manual) Lymphocytes % (Manual) Monocytes % (Manual) Eosinophils % (Manual) Basophils % (Manual) Nucleated RBC % Seg Neutrophils # Seg Neutrophils # Man Lymphocytes # (Manual) Monocytes # (Manual) Eosinophils # (Manual) Basophils # (Manual) PT INR Fibrinogen dRVVT Confirm Interp Factor V Activity POC ABG pH POC ABG pCO2 POC ABG pO2 ABG pO2 ABG HCO3 ABG Base Excess ABG Hemoglobin Oxyhemoglobin Sodium 147 H Potassium Chloride Carbon Dioxide BUN 82 H Creatinine 1.8 H Glucose 137 H POC Glucose 164 H 157 H Lactic Acid Calcium Ionized Calcium Phosphorus Magnesium Direct Bilirubin AST ALT Alkaline Phosphatase Lactate Dehydrogenase Troponin T C-Reactive Protein Total Protein Albumin Prealbumin Triglycerides Cholesterol LDL Cholesterol Direct HDL Cholesterol 25-OH Vitamin D Total PTH Intact Urine pH Urine WBC (Auto) Urine Creatinine Urine Total Protein Fluid Total Protein Vancomycin Trough Rheumatoid Factor Complement C4 Miscellaneous Test Crossmatch 01/09/17 01/09/17 01/09/17 05:42 08:22 10:57 WBC RBC Hgb Hct MCV MCH MCHC RDW Plt Count Lymph % (Auto) [place] % (Auto) Lymph # [place] # Baso # Seg Neutrophils % Seg Neuts % (Manual) Lymphocytes % (Manual) Monocytes % (Manual) Eosinophils % (Manual) Basophils % (Manual) Nucleated RBC % Seg Neutrophils # Seg Neutrophils # Man Lymphocytes # (Manual) Monocytes # (Manual) Eosinophils # (Manual) Basophils # (Manual) PT INR Fibrinogen dRVVT Confirm Interp Factor V Activity POC ABG pH POC ABG pCO2 POC ABG pO2 ABG pO2 ABG HCO3 ABG Base Excess ABG Hemoglobin Oxyhemoglobin Sodium Potassium Chloride Carbon Dioxide BUN Creatinine Glucose POC Glucose 156 H 122 H Lactic Acid 2.30 H* Calcium Ionized Calcium Phosphorus Magnesium Direct Bilirubin AST ALT Alkaline Phosphatase Lactate Dehydrogenase Troponin T C-Reactive Protein Total Protein Albumin Prealbumin Triglycerides Cholesterol LDL Cholesterol Direct HDL Cholesterol 25-OH Vitamin D Total PTH Intact Urine pH Urine WBC (Auto) Urine Creatinine Urine Total Protein Fluid Total Protein Vancomycin Trough Rheumatoid Factor Complement C4 Miscellaneous Test Crossmatch 01/09/17 01/09/17 01/09/17 13:30 17:14 18:45 WBC RBC Hgb Hct MCV MCH MCHC RDW Plt Count Lymph % (Auto) [place] % (Auto) Lymph # [place] # Baso # Seg Neutrophils % Seg Neuts % (Manual) Lymphocytes % (Manual) Monocytes % (Manual) Eosinophils % (Manual) Basophils % (Manual) Nucleated RBC % Seg Neutrophils # Seg Neutrophils # Man Lymphocytes # (Manual) Monocytes # (Manual) Eosinophils # (Manual) Basophils # (Manual) PT INR Fibrinogen dRVVT Confirm Interp Factor V Activity POC ABG pH POC ABG pCO2 POC ABG pO2 ABG pO2 ABG HCO3 ABG Base Excess ABG Hemoglobin Oxyhemoglobin Sodium Potassium Chloride Carbon Dioxide BUN Creatinine Glucose POC Glucose 127 H Lactic Acid Calcium Ionized Calcium Phosphorus Magnesium Direct Bilirubin AST ALT Alkaline Phosphatase Lactate Dehydrogenase Troponin T C-Reactive Protein 24.70 H Total Protein Albumin Prealbumin Triglycerides Cholesterol LDL Cholesterol Direct HDL Cholesterol 25-OH Vitamin D Total PTH Intact Urine pH Urine WBC (Auto) Urine Creatinine Urine Total Protein Fluid Total Protein Vancomycin Trough Rheumatoid Factor Complement C4 Miscellaneous Test Flexitest 1 H Crossmatch 01/10/17 01/10/17 01/10/17 01:21 04:00 04:00 WBC 18.1 H RBC 3.22 L Hgb 8.8 L Hct 27.0 L D MCV MCH 27 L MCHC RDW 17.0 H Plt Count Lymph % (Auto) [place] % (Auto) Lymph # [place] # Baso # Seg Neutrophils % Seg Neuts % (Manual) Lymphocytes % (Manual) Monocytes % (Manual) Eosinophils % (Manual) Basophils % (Manual) Nucleated RBC % Seg Neutrophils # Seg Neutrophils # Man Lymphocytes # (Manual) Monocytes # (Manual) Eosinophils # (Manual) Basophils # (Manual) PT INR Fibrinogen dRVVT Confirm Interp Factor V Activity POC ABG pH POC ABG pCO2 POC ABG pO2 ABG pO2 ABG HCO3 ABG Base Excess ABG Hemoglobin Oxyhemoglobin Sodium Potassium Chloride Carbon Dioxide BUN 59 H Creatinine 1.3 H Glucose 122 H POC Glucose 160 H Lactic Acid Calcium Ionized Calcium Phosphorus Magnesium Direct Bilirubin AST ALT Alkaline Phosphatase Lactate Dehydrogenase Troponin T C-Reactive Protein Total Protein Albumin Prealbumin Triglycerides Cholesterol LDL Cholesterol Direct HDL Cholesterol 25-OH Vitamin D Total PTH Intact Urine pH Urine WBC (Auto) Urine Creatinine Urine Total Protein Fluid Total Protein Vancomycin Trough Rheumatoid Factor Complement C4 Miscellaneous Test Crossmatch 01/10/17 01/10/17 01/10/17 05:36 12:14 17:55 WBC RBC Hgb Hct MCV MCH MCHC RDW Plt Count Lymph % (Auto) [place] % (Auto) Lymph # [place] # Baso # Seg Neutrophils % Seg Neuts % (Manual) Lymphocytes % (Manual) Monocytes % (Manual) Eosinophils % (Manual) Basophils % (Manual) Nucleated RBC % Seg Neutrophils # Seg Neutrophils # Man Lymphocytes # (Manual) Monocytes # (Manual) Eosinophils # (Manual) Basophils # (Manual) PT INR Fibrinogen dRVVT Confirm Interp Factor V Activity POC ABG pH POC ABG pCO2 POC ABG pO2 ABG pO2 ABG HCO3 ABG Base Excess ABG Hemoglobin Oxyhemoglobin Sodium Potassium Chloride Carbon Dioxide BUN Creatinine Glucose POC Glucose 163 H 120 H 144 H Lactic Acid Calcium Ionized Calcium Phosphorus Magnesium Direct Bilirubin AST ALT Alkaline Phosphatase Lactate Dehydrogenase Troponin T C-Reactive Protein Total Protein Albumin Prealbumin Triglycerides Cholesterol LDL Cholesterol Direct HDL Cholesterol 25-OH Vitamin D Total PTH Intact Urine pH Urine WBC (Auto) Urine Creatinine Urine Total Protein Fluid Total Protein Vancomycin Trough Rheumatoid Factor Complement C4 Miscellaneous Test Crossmatch 01/11/17 01/11/17 01/11/17 00:09 04:00 04:00 WBC 15.8 H RBC 3.04 L Hgb 8.2 L Hct 25.5 L MCV MCH 27 L MCHC RDW 17.3 H Plt Count Lymph % (Auto) [place] % (Auto) Lymph # [place] # Baso # Seg Neutrophils % Seg Neuts % (Manual) Lymphocytes % (Manual) Monocytes % (Manual) Eosinophils % (Manual) Basophils % (Manual) Nucleated RBC % Seg Neutrophils # Seg Neutrophils # Man Lymphocytes # (Manual) Monocytes # (Manual) Eosinophils # (Manual) Basophils # (Manual) PT INR Fibrinogen dRVVT Confirm Interp Factor V Activity POC ABG pH POC ABG pCO2 POC ABG pO2 ABG pO2 ABG HCO3 ABG Base Excess ABG Hemoglobin Oxyhemoglobin Sodium Potassium Chloride Carbon Dioxide BUN 78 H Creatinine 1.6 H Glucose 109 H POC Glucose 122 H Lactic Acid Calcium Ionized Calcium Phosphorus Magnesium Direct Bilirubin AST ALT Alkaline Phosphatase Lactate Dehydrogenase Troponin T C-Reactive Protein Total Protein Albumin Prealbumin Triglycerides Cholesterol LDL Cholesterol Direct HDL Cholesterol 25-OH Vitamin D Total PTH Intact Urine pH Urine WBC (Auto) Urine Creatinine Urine Total Protein Fluid Total Protein Vancomycin Trough Rheumatoid Factor Complement C4 Miscellaneous Test Crossmatch 01/11/17 01/11/17 01/11/17 12:46 18:23 23:42 WBC RBC Hgb Hct MCV MCH MCHC RDW Plt Count Lymph % (Auto) [place] % (Auto) Lymph # [place] # Baso # Seg Neutrophils % Seg Neuts % (Manual) Lymphocytes % (Manual) Monocytes % (Manual) Eosinophils % (Manual) Basophils % (Manual) Nucleated RBC % Seg Neutrophils # Seg Neutrophils # Man Lymphocytes # (Manual) Monocytes # (Manual) Eosinophils # (Manual) Basophils # (Manual) PT INR Fibrinogen dRVVT Confirm Interp Factor V Activity POC ABG pH POC ABG pCO2 POC ABG pO2 ABG pO2 ABG HCO3 ABG Base Excess ABG Hemoglobin Oxyhemoglobin Sodium Potassium Chloride Carbon Dioxide BUN Creatinine Glucose POC Glucose 148 H 125 H 124 H Lactic Acid Calcium Ionized Calcium Phosphorus Magnesium Direct Bilirubin AST ALT Alkaline Phosphatase Lactate Dehydrogenase Troponin T C-Reactive Protein Total Protein Albumin Prealbumin Triglycerides Cholesterol LDL Cholesterol Direct HDL Cholesterol 25-OH Vitamin D Total PTH Intact Urine pH Urine WBC (Auto) Urine Creatinine Urine Total Protein Fluid Total Protein Vancomycin Trough Rheumatoid Factor Complement C4 Miscellaneous Test Crossmatch 01/12/17 01/12/17 01/12/17 04:30 04:30 05:47 WBC 15.8 H RBC 3.31 L Hgb 8.9 L Hct 27.9 L MCV MCH 27 L MCHC RDW 17.4 H Plt Count Lymph % (Auto) [place] % (Auto) Lymph # [place] # Baso # Seg Neutrophils % Seg Neuts % (Manual) Lymphocytes % (Manual) Monocytes % (Manual) Eosinophils % (Manual) Basophils % (Manual) Nucleated RBC % Seg Neutrophils # Seg Neutrophils # Man Lymphocytes # (Manual) Monocytes # (Manual) Eosinophils # (Manual) Basophils # (Manual) PT INR Fibrinogen dRVVT Confirm Interp Factor V Activity POC ABG pH POC ABG pCO2 POC ABG pO2 ABG pO2 ABG HCO3 ABG Base Excess ABG Hemoglobin Oxyhemoglobin Sodium Potassium Chloride Carbon Dioxide BUN 57 H Creatinine Glucose 121 H POC Glucose 110 H Lactic Acid Calcium Ionized Calcium Phosphorus 2.10 L Magnesium Direct Bilirubin AST ALT Alkaline Phosphatase Lactate Dehydrogenase Troponin T C-Reactive Protein Total Protein Albumin Prealbumin Triglycerides Cholesterol LDL Cholesterol Direct HDL Cholesterol 25-OH Vitamin D Total PTH Intact Urine pH Urine WBC (Auto) Urine Creatinine Urine Total Protein Fluid Total Protein Vancomycin Trough Rheumatoid Factor Complement C4 Miscellaneous Test Crossmatch 01/12/17 01/12/17 01/12/17 11:35 17:45 23:14 WBC RBC Hgb Hct MCV MCH MCHC RDW Plt Count Lymph % (Auto) [place] % (Auto) Lymph # [place] # Baso # Seg Neutrophils % Seg Neuts % (Manual) Lymphocytes % (Manual) Monocytes % (Manual) Eosinophils % (Manual) Basophils % (Manual) Nucleated RBC % Seg Neutrophils # Seg Neutrophils # Man Lymphocytes # (Manual) Monocytes # (Manual) Eosinophils # (Manual) Basophils # (Manual) PT INR Fibrinogen dRVVT Confirm Interp Factor V Activity POC ABG pH POC ABG pCO2 POC ABG pO2 ABG pO2 ABG HCO3 ABG Base Excess ABG Hemoglobin Oxyhemoglobin Sodium Potassium Chloride Carbon Dioxide BUN Creatinine Glucose POC Glucose 146 H 117 H 123 H Lactic Acid Calcium Ionized Calcium Phosphorus Magnesium Direct Bilirubin AST ALT Alkaline Phosphatase Lactate Dehydrogenase Troponin T C-Reactive Protein Total Protein Albumin Prealbumin Triglycerides Cholesterol LDL Cholesterol Direct HDL Cholesterol 25-OH Vitamin D Total PTH Intact Urine pH Urine WBC (Auto) Urine Creatinine Urine Total Protein Fluid Total Protein Vancomycin Trough Rheumatoid Factor Complement C4 Miscellaneous Test Crossmatch 01/13/17 01/13/17 01/13/17 05:32 06:00 12:10 WBC RBC Hgb Hct MCV MCH MCHC RDW Plt Count Lymph % (Auto) [place] % (Auto) Lymph # [place] # Baso # Seg Neutrophils % Seg Neuts % (Manual) Lymphocytes % (Manual) Monocytes % (Manual) Eosinophils % (Manual) Basophils % (Manual) Nucleated RBC % Seg Neutrophils # Seg Neutrophils # Man Lymphocytes # (Manual) Monocytes # (Manual) Eosinophils # (Manual) Basophils # (Manual) PT INR Fibrinogen dRVVT Confirm Interp Factor V Activity POC ABG pH POC ABG pCO2 POC ABG pO2 ABG pO2 ABG HCO3 ABG Base Excess ABG Hemoglobin Oxyhemoglobin Sodium Potassium Chloride Carbon Dioxide BUN 80 H Creatinine 1.4 H Glucose 106 H POC Glucose 106 H Lactic Acid Calcium Ionized Calcium Phosphorus Magnesium Direct Bilirubin AST ALT Alkaline Phosphatase Lactate Dehydrogenase Troponin T C-Reactive Protein Total Protein Albumin Prealbumin Triglycerides Cholesterol LDL Cholesterol Direct HDL Cholesterol 25-OH Vitamin D Total PTH Intact Urine pH Urine WBC (Auto) Urine Creatinine Urine Total Protein Fluid Total Protein 3.0 L Vancomycin Trough Rheumatoid Factor Complement C4 Miscellaneous Test Crossmatch 01/13/17 01/13/17 01/13/17 12:17 15:50 17:30 WBC RBC Hgb Hct MCV MCH MCHC RDW Plt Count Lymph % (Auto) [place] % (Auto) Lymph # [place] # Baso # Seg Neutrophils % Seg Neuts % (Manual) Lymphocytes % (Manual) Monocytes % (Manual) Eosinophils % (Manual) Basophils % (Manual) Nucleated RBC % Seg Neutrophils # Seg Neutrophils # Man Lymphocytes # (Manual) Monocytes # (Manual) Eosinophils # (Manual) Basophils # (Manual) PT 15.4 H INR 1.16 H Fibrinogen dRVVT Confirm Interp Factor V Activity POC ABG pH POC ABG pCO2 POC ABG pO2 ABG pO2 ABG HCO3 ABG Base Excess ABG Hemoglobin Oxyhemoglobin Sodium Potassium Chloride Carbon Dioxide BUN Creatinine Glucose POC Glucose 168 H 110 H Lactic Acid Calcium Ionized Calcium Phosphorus Magnesium Direct Bilirubin AST ALT Alkaline Phosphatase Lactate Dehydrogenase Troponin T C-Reactive Protein Total Protein Albumin Prealbumin Triglycerides Cholesterol LDL Cholesterol Direct HDL Cholesterol 25-OH Vitamin D Total PTH Intact Urine pH Urine WBC (Auto) Urine Creatinine Urine Total Protein Fluid Total Protein Vancomycin Trough Rheumatoid Factor Complement C4 Miscellaneous Test Crossmatch 01/13/17 01/14/17 01/14/17 23:42 05:24 05:30 WBC RBC Hgb Hct MCV MCH MCHC RDW Plt Count Lymph % (Auto) [place] % (Auto) Lymph # [place] # Baso # Seg Neutrophils % Seg Neuts % (Manual) Lymphocytes % (Manual) Monocytes % (Manual) Eosinophils % (Manual) Basophils % (Manual) Nucleated RBC % Seg Neutrophils # Seg Neutrophils # Man Lymphocytes # (Manual) Monocytes # (Manual) Eosinophils # (Manual) Basophils # (Manual) PT INR Fibrinogen dRVVT Confirm Interp Factor V Activity POC ABG pH POC ABG pCO2 POC ABG pO2 ABG pO2 ABG HCO3 ABG Base Excess ABG Hemoglobin Oxyhemoglobin Sodium Potassium Chloride Carbon Dioxide BUN 58 H Creatinine Glucose 114 H POC Glucose 155 H 121 H Lactic Acid Calcium Ionized Calcium Phosphorus Magnesium Direct Bilirubin AST ALT Alkaline Phosphatase Lactate Dehydrogenase Troponin T C-Reactive Protein Total Protein Albumin Prealbumin Triglycerides Cholesterol LDL Cholesterol Direct HDL Cholesterol 25-OH Vitamin D Total PTH Intact Urine pH Urine WBC (Auto) Urine Creatinine Urine Total Protein Fluid Total Protein Vancomycin Trough Rheumatoid Factor Complement C4 Miscellaneous Test Crossmatch 11/01/14/17 01/15/17 12:48 17:36 00:15 WBC RBC Hgb Hct MCV MCH MCHC RDW Plt Count Lymph % (Auto) [place] % (Auto) Lymph # [place] # Baso # Seg Neutrophils % Seg Neuts % (Manual) Lymphocytes % (Manual) Monocytes % (Manual) Eosinophils % (Manual) Basophils % (Manual) Nucleated RBC % Seg Neutrophils # Seg Neutrophils # Man Lymphocytes # (Manual) Monocytes # (Manual) Eosinophils # (Manual) Basophils # (Manual) PT INR Fibrinogen dRVVT Confirm Interp Factor V Activity POC ABG pH POC ABG pCO2 POC ABG pO2 ABG pO2 ABG HCO3 ABG Base Excess ABG Hemoglobin Oxyhemoglobin Sodium Potassium Chloride Carbon Dioxide BUN Creatinine Glucose POC Glucose 130 H 135 H 132 H Lactic Acid Calcium Ionized Calcium Phosphorus Magnesium Direct Bilirubin AST ALT Alkaline Phosphatase Lactate Dehydrogenase Troponin T C-Reactive Protein Total Protein Albumin Prealbumin Triglycerides Cholesterol LDL Cholesterol Direct HDL Cholesterol 25-OH Vitamin D Total PTH Intact Urine pH Urine WBC (Auto) Urine Creatinine Urine Total Protein Fluid Total Protein Vancomycin Trough Rheumatoid Factor Complement C4 Miscellaneous Test Crossmatch 01/15/17 01/15/17 01/15/17 05:01 11:55 12:45 WBC 16.2 H RBC 3.00 L Hgb 8.1 L Hct 25.4 L MCV MCH 27 L MCHC RDW 17.6 H Plt Count Lymph % (Auto) 11.7 L [place] % (Auto) 7.8 H Lymph # [place] # 1.3 H Baso # Seg Neutrophils % 80.1 H Seg Neuts % (Manual) Lymphocytes % (Manual) Monocytes % (Manual) Eosinophils % (Manual) Basophils % (Manual) Nucleated RBC % Seg Neutrophils # 13.0 H Seg Neutrophils # Man Lymphocytes # (Manual) Monocytes # (Manual) Eosinophils # (Manual) Basophils # (Manual) PT INR Fibrinogen dRVVT Confirm Interp Factor V Activity POC ABG pH POC ABG pCO2 POC ABG pO2 ABG pO2 ABG HCO3 ABG Base Excess ABG Hemoglobin Oxyhemoglobin Sodium Potassium Chloride Carbon Dioxide BUN Creatinine Glucose POC Glucose 126 H 125 H Lactic Acid Calcium Ionized Calcium Phosphorus Magnesium Direct Bilirubin AST ALT Alkaline Phosphatase Lactate Dehydrogenase Troponin T C-Reactive Protein Total Protein Albumin Prealbumin Triglycerides Cholesterol LDL Cholesterol Direct HDL Cholesterol 25-OH Vitamin D Total PTH Intact Urine pH Urine WBC (Auto) Urine Creatinine Urine Total Protein Fluid Total Protein Vancomycin Trough Rheumatoid Factor Complement C4 Miscellaneous Test Crossmatch 01/15/17 01/15/17 01/15/17 12:45 17:31 23:39 WBC RBC Hgb Hct MCV MCH MCHC RDW Plt Count Lymph % (Auto) [place] % (Auto) Lymph # [place] # Baso # Seg Neutrophils % Seg Neuts % (Manual) Lymphocytes % (Manual) Monocytes % (Manual) Eosinophils % (Manual) Basophils % (Manual) Nucleated RBC % Seg Neutrophils # Seg Neutrophils # Man Lymphocytes # (Manual) Monocytes # (Manual) Eosinophils # (Manual) Basophils # (Manual) PT INR Fibrinogen dRVVT Confirm Interp Factor V Activity POC ABG pH POC ABG pCO2 POC ABG pO2 ABG pO2 ABG HCO3 ABG Base Excess ABG Hemoglobin Oxyhemoglobin Sodium 136 L Potassium Chloride Carbon Dioxide BUN 87 H Creatinine 1.7 H Glucose 108 H POC Glucose 129 H 112 H Lactic Acid Calcium Ionized Calcium Phosphorus Magnesium Direct Bilirubin AST ALT Alkaline Phosphatase Lactate Dehydrogenase Troponin T C-Reactive Protein Total Protein Albumin Prealbumin Triglycerides Cholesterol LDL Cholesterol Direct HDL Cholesterol 25-OH Vitamin D Total PTH Intact Urine pH Urine WBC (Auto) Urine Creatinine Urine Total Protein Fluid Total Protein Vancomycin Trough Rheumatoid Factor Complement C4 Miscellaneous Test Crossmatch 01/16/17 01/16/17 01/16/17 05:23 11:42 12:32 WBC RBC Hgb Hct MCV MCH MCHC RDW Plt Count Lymph % (Auto) [place] % (Auto) Lymph # [place] # Baso # Seg Neutrophils % Seg Neuts % (Manual) Lymphocytes % (Manual) Monocytes % (Manual) Eosinophils % (Manual) Basophils % (Manual) Nucleated RBC % Seg Neutrophils # Seg Neutrophils # Man Lymphocytes # (Manual) Monocytes # (Manual) Eosinophils # (Manual) Basophils # (Manual) PT INR Fibrinogen dRVVT Confirm Interp Factor V Activity POC ABG pH 7.499 H POC ABG pCO2 30.9 L POC ABG pO2 51 L ABG pO2 ABG HCO3 ABG Base Excess ABG Hemoglobin Oxyhemoglobin Sodium Potassium Chloride Carbon Dioxide BUN Creatinine Glucose POC Glucose 118 H 133 H Lactic Acid Calcium Ionized Calcium Phosphorus Magnesium Direct Bilirubin AST ALT Alkaline Phosphatase Lactate Dehydrogenase Troponin T C-Reactive Protein Total Protein Albumin Prealbumin Triglycerides Cholesterol LDL Cholesterol Direct HDL Cholesterol 25-OH Vitamin D Total PTH Intact Urine pH Urine WBC (Auto) Urine Creatinine Urine Total Protein Fluid Total Protein Vancomycin Trough Rheumatoid Factor Complement C4 Miscellaneous Test Crossmatch 01/16/17 01/16/17 01/16/17 17:52 23:57 Unknown WBC RBC Hgb Hct MCV MCH MCHC RDW Plt Count Lymph % (Auto) [place] % (Auto) Lymph # [place] # Baso # Seg Neutrophils % Seg Neuts % (Manual) Lymphocytes % (Manual) Monocytes % (Manual) Eosinophils % (Manual) Basophils % (Manual) Nucleated RBC % Seg Neutrophils # Seg Neutrophils # Man Lymphocytes # (Manual) Monocytes # (Manual) Eosinophils # (Manual) Basophils # (Manual) PT INR Fibrinogen dRVVT Confirm Interp Factor V Activity POC ABG pH POC ABG pCO2 POC ABG pO2 ABG pO2 ABG HCO3 ABG Base Excess ABG Hemoglobin Oxyhemoglobin Sodium 135 L Potassium Chloride Carbon Dioxide BUN 101 H Creatinine 1.8 H Glucose 117 H POC Glucose 130 H 143 H Lactic Acid Calcium Ionized Calcium Phosphorus 5.80 H Magnesium Direct Bilirubin AST ALT Alkaline Phosphatase Lactate Dehydrogenase Troponin T C-Reactive Protein Total Protein Albumin Prealbumin Triglycerides Cholesterol LDL Cholesterol Direct HDL Cholesterol 25-OH Vitamin D Total PTH Intact Urine pH Urine WBC (Auto) Urine Creatinine Urine Total Protein Fluid Total Protein Vancomycin Trough Rheumatoid Factor Complement C4 Miscellaneous Test Crossmatch 01/17/17 01/17/17 01/17/17 05:30 05:46 11:49 WBC RBC Hgb Hct MCV MCH MCHC RDW Plt Count Lymph % (Auto) [place] % (Auto) Lymph # [place] # Baso # Seg Neutrophils % Seg Neuts % (Manual) Lymphocytes % (Manual) Monocytes % (Manual) Eosinophils % (Manual) Basophils % (Manual) Nucleated RBC % Seg Neutrophils # Seg Neutrophils # Man Lymphocytes # (Manual) Monocytes # (Manual) Eosinophils # (Manual) Basophils # (Manual) PT INR Fibrinogen dRVVT Confirm Interp Factor V Activity POC ABG pH POC ABG pCO2 POC ABG pO2 ABG pO2 ABG HCO3 ABG Base Excess ABG Hemoglobin Oxyhemoglobin Sodium 134 L Potassium Chloride 95.8 L Carbon Dioxide BUN 66 H Creatinine 1.3 H Glucose 138 H POC Glucose 147 H 124 H Lactic Acid Calcium Ionized Calcium Phosphorus Magnesium Direct Bilirubin AST ALT Alkaline Phosphatase 254 H Lactate Dehydrogenase Troponin T C-Reactive Protein Total Protein Albumin 1.3 L Prealbumin Triglycerides Cholesterol LDL Cholesterol Direct HDL Cholesterol 25-OH Vitamin D Total PTH Intact Urine pH Urine WBC (Auto) Urine Creatinine Urine Total Protein Fluid Total Protein Vancomycin Trough Rheumatoid Factor Complement C4 Miscellaneous Test Crossmatch 01/17/17 01/17/17 01/18/17 17:30 23:41 05:15 WBC RBC Hgb Hct MCV MCH MCHC RDW Plt Count Lymph % (Auto) [place] % (Auto) Lymph # [place] # Baso # Seg Neutrophils % Seg Neuts % (Manual) Lymphocytes % (Manual) Monocytes % (Manual) Eosinophils % (Manual) Basophils % (Manual) Nucleated RBC % Seg Neutrophils # Seg Neutrophils # Man Lymphocytes # (Manual) Monocytes # (Manual) Eosinophils # (Manual) Basophils # (Manual) PT INR Fibrinogen dRVVT Confirm Interp Factor V Activity POC ABG pH POC ABG pCO2 POC ABG pO2 ABG pO2 ABG HCO3 ABG Base Excess ABG Hemoglobin Oxyhemoglobin Sodium Potassium Chloride Carbon Dioxide BUN 89 H Creatinine 1.7 H Glucose 118 H POC Glucose 137 H 119 H Lactic Acid Calcium Ionized Calcium Phosphorus Magnesium Direct Bilirubin AST ALT Alkaline Phosphatase Lactate Dehydrogenase Troponin T C-Reactive Protein Total Protein Albumin Prealbumin Triglycerides Cholesterol LDL Cholesterol Direct HDL Cholesterol 25-OH Vitamin D Total PTH Intact Urine pH Urine WBC (Auto) Urine Creatinine Urine Total Protein Fluid Total Protein Vancomycin Trough Rheumatoid Factor Complement C4 Miscellaneous Test Crossmatch 01/18/17 01/18/17 01/18/17 05:19 12:16 18:11 WBC RBC Hgb Hct MCV MCH MCHC RDW Plt Count Lymph % (Auto) [place] % (Auto) Lymph # [place] # Baso # Seg Neutrophils % Seg Neuts % (Manual) Lymphocytes % (Manual) Monocytes % (Manual) Eosinophils % (Manual) Basophils % (Manual) Nucleated RBC % Seg Neutrophils # Seg Neutrophils # Man Lymphocytes # (Manual) Monocytes # (Manual) Eosinophils # (Manual) Basophils # (Manual) PT INR Fibrinogen dRVVT Confirm Interp Factor V Activity POC ABG pH POC ABG pCO2 POC ABG pO2 ABG pO2 ABG HCO3 ABG Base Excess ABG Hemoglobin Oxyhemoglobin Sodium Potassium Chloride Carbon Dioxide BUN Creatinine Glucose POC Glucose 134 H 188 H 113 H Lactic Acid Calcium Ionized Calcium Phosphorus Magnesium Direct Bilirubin AST ALT Alkaline Phosphatase Lactate Dehydrogenase Troponin T C-Reactive Protein Total Protein Albumin Prealbumin Triglycerides Cholesterol LDL Cholesterol Direct HDL Cholesterol 25-OH Vitamin D Total PTH Intact Urine pH Urine WBC (Auto) Urine Creatinine Urine Total Protein Fluid Total Protein Vancomycin Trough Rheumatoid Factor Complement C4 Miscellaneous Test Crossmatch 01/19/17 01/19/17 01/19/17 00:00 05:30 05:36 WBC RBC Hgb Hct MCV MCH MCHC RDW Plt Count Lymph % (Auto) [place] % (Auto) Lymph # [place] # Baso # Seg Neutrophils % Seg Neuts % (Manual) Lymphocytes % (Manual) Monocytes % (Manual) Eosinophils % (Manual) Basophils % (Manual) Nucleated RBC % Seg Neutrophils # Seg Neutrophils # Man Lymphocytes # (Manual) Monocytes # (Manual) Eosinophils # (Manual) Basophils # (Manual) PT INR Fibrinogen dRVVT Confirm Interp Factor V Activity POC ABG pH POC ABG pCO2 POC ABG pO2 ABG pO2 ABG HCO3 ABG Base Excess ABG Hemoglobin Oxyhemoglobin Sodium Potassium Chloride Carbon Dioxide BUN 70 H Creatinine 1.5 H Glucose 121 H POC Glucose 137 H 155 H Lactic Acid Calcium Ionized Calcium Phosphorus 2.10 L D Magnesium Direct Bilirubin AST ALT Alkaline Phosphatase Lactate Dehydrogenase Troponin T C-Reactive Protein Total Protein Albumin Prealbumin Triglycerides Cholesterol LDL Cholesterol Direct HDL Cholesterol 25-OH Vitamin D Total PTH Intact Urine pH Urine WBC (Auto) Urine Creatinine Urine Total Protein Fluid Total Protein Vancomycin Trough Rheumatoid Factor Complement C4 Miscellaneous Test Crossmatch 01/19/17 01/19/17 01/19/17 11:59 15:32 17:57 WBC RBC Hgb Hct MCV MCH MCHC RDW Plt Count Lymph % (Auto) [place] % (Auto) Lymph # [place] # Baso # Seg Neutrophils % Seg Neuts % (Manual) Lymphocytes % (Manual) Monocytes % (Manual) Eosinophils % (Manual) Basophils % (Manual) Nucleated RBC % Seg Neutrophils # Seg Neutrophils # Man Lymphocytes # (Manual) Monocytes # (Manual) Eosinophils # (Manual) Basophils # (Manual) PT INR Fibrinogen dRVVT Confirm Interp Factor V Activity POC ABG pH POC ABG pCO2 33.1 L POC ABG pO2 76 L ABG pO2 ABG HCO3 ABG Base Excess ABG Hemoglobin Oxyhemoglobin Sodium Potassium Chloride Carbon Dioxide BUN Creatinine Glucose POC Glucose 156 H 129 H Lactic Acid Calcium Ionized Calcium Phosphorus Magnesium Direct Bilirubin AST ALT Alkaline Phosphatase Lactate Dehydrogenase Troponin T C-Reactive Protein Total Protein Albumin Prealbumin Triglycerides Cholesterol LDL Cholesterol Direct HDL Cholesterol 25-OH Vitamin D Total PTH Intact Urine pH Urine WBC (Auto) Urine Creatinine Urine Total Protein Fluid Total Protein Vancomycin Trough Rheumatoid Factor Complement C4 Miscellaneous Test Crossmatch 01/19/17 01/20/17 01/20/17 23:49 04:00 05:21 WBC RBC Hgb Hct MCV MCH MCHC RDW Plt Count Lymph % (Auto) [place] % (Auto) Lymph # [place] # Baso # Seg Neutrophils % Seg Neuts % (Manual) Lymphocytes % (Manual) Monocytes % (Manual) Eosinophils % (Manual) Basophils % (Manual) Nucleated RBC % Seg Neutrophils # Seg Neutrophils # Man Lymphocytes # (Manual) Monocytes # (Manual) Eosinophils # (Manual) Basophils # (Manual) PT INR Fibrinogen dRVVT Confirm Interp Factor V Activity POC ABG pH POC ABG pCO2 POC ABG pO2 ABG pO2 ABG HCO3 ABG Base Excess ABG Hemoglobin Oxyhemoglobin Sodium Potassium Chloride Carbon Dioxide BUN 96 H Creatinine 1.9 H Glucose 106 H POC Glucose 125 H 130 H Lactic Acid Calcium Ionized Calcium Phosphorus 2.40 L Magnesium Direct Bilirubin AST ALT Alkaline Phosphatase Lactate Dehydrogenase Troponin T C-Reactive Protein Total Protein Albumin Prealbumin Triglycerides Cholesterol LDL Cholesterol Direct HDL Cholesterol 25-OH Vitamin D Total PTH Intact Urine pH Urine WBC (Auto) Urine Creatinine Urine Total Protein Fluid Total Protein Vancomycin Trough Rheumatoid Factor Complement C4 Miscellaneous Test Crossmatch 01/20/17 01/20/17 01/20/17 11:58 12:17 17:26 WBC RBC Hgb Hct MCV MCH MCHC RDW Plt Count Lymph % (Auto) [place] % (Auto) Lymph # [place] # Baso # Seg Neutrophils % Seg Neuts % (Manual) Lymphocytes % (Manual) Monocytes % (Manual) Eosinophils % (Manual) Basophils % (Manual) Nucleated RBC % Seg Neutrophils # Seg Neutrophils # Man Lymphocytes # (Manual) Monocytes # (Manual) Eosinophils # (Manual) Basophils # (Manual) PT INR Fibrinogen dRVVT Confirm Interp Factor V Activity POC ABG pH POC ABG pCO2 POC ABG pO2 70 L ABG pO2 ABG HCO3 ABG Base Excess ABG Hemoglobin Oxyhemoglobin Sodium Potassium Chloride Carbon Dioxide BUN Creatinine Glucose POC Glucose 118 H 154 H Lactic Acid Calcium Ionized Calcium Phosphorus Magnesium Direct Bilirubin AST ALT Alkaline Phosphatase Lactate Dehydrogenase Troponin T C-Reactive Protein Total Protein Albumin Prealbumin Triglycerides Cholesterol LDL Cholesterol Direct HDL Cholesterol 25-OH Vitamin D Total PTH Intact Urine pH Urine WBC (Auto) Urine Creatinine Urine Total Protein Fluid Total Protein Vancomycin Trough Rheumatoid Factor Complement C4 Miscellaneous Test Crossmatch 01/21/17 01/21/17 01/21/17 04:00 04:56 11:46 WBC RBC Hgb Hct MCV MCH MCHC RDW Plt Count Lymph % (Auto) [place] % (Auto) Lymph # [place] # Baso # Seg Neutrophils % Seg Neuts % (Manual) Lymphocytes % (Manual) Monocytes % (Manual) Eosinophils % (Manual) Basophils % (Manual) Nucleated RBC % Seg Neutrophils # Seg Neutrophils # Man Lymphocytes # (Manual) Monocytes # (Manual) Eosinophils # (Manual) Basophils # (Manual) PT INR Fibrinogen dRVVT Confirm Interp Factor V Activity POC ABG pH POC ABG pCO2 POC ABG pO2 ABG pO2 ABG HCO3 ABG Base Excess ABG Hemoglobin Oxyhemoglobin Sodium Potassium 3.5 L Chloride 97.4 L Carbon Dioxide BUN 66 H Creatinine 1.4 H Glucose POC Glucose 116 H 106 H Lactic Acid Calcium Ionized Calcium Phosphorus 2.10 L Magnesium Direct Bilirubin AST ALT Alkaline Phosphatase Lactate Dehydrogenase Troponin T C-Reactive Protein Total Protein Albumin Prealbumin Triglycerides Cholesterol LDL Cholesterol Direct HDL Cholesterol 25-OH Vitamin D Total PTH Intact Urine pH Urine WBC (Auto) Urine Creatinine Urine Total Protein Fluid Total Protein Vancomycin Trough Rheumatoid Factor Complement C4 Miscellaneous Test Crossmatch 01/21/17 01/21/17 01/22/17 17:25 23:49 05:35 WBC RBC Hgb Hct MCV MCH MCHC RDW Plt Count Lymph % (Auto) [place] % (Auto) Lymph # [place] # Baso # Seg Neutrophils % Seg Neuts % (Manual) Lymphocytes % (Manual) Monocytes % (Manual) Eosinophils % (Manual) Basophils % (Manual) Nucleated RBC % Seg Neutrophils # Seg Neutrophils # Man Lymphocytes # (Manual) Monocytes # (Manual) Eosinophils # (Manual) Basophils # (Manual) PT INR Fibrinogen dRVVT Confirm Interp Factor V Activity POC ABG pH POC ABG pCO2 POC ABG pO2 ABG pO2 ABG HCO3 ABG Base Excess ABG Hemoglobin Oxyhemoglobin Sodium Potassium Chloride Carbon Dioxide BUN Creatinine Glucose POC Glucose 106 H 133 H 107 H Lactic Acid Calcium Ionized Calcium Phosphorus Magnesium Direct Bilirubin AST ALT Alkaline Phosphatase Lactate Dehydrogenase Troponin T C-Reactive Protein Total Protein Albumin Prealbumin Triglycerides Cholesterol LDL Cholesterol Direct HDL Cholesterol 25-OH Vitamin D Total PTH Intact Urine pH Urine WBC (Auto) Urine Creatinine Urine Total Protein Fluid Total Protein Vancomycin Trough Rheumatoid Factor Complement C4 Miscellaneous Test Crossmatch 01/22/17 01/22/17 01/22/17 07:20 07:20 11:31 WBC RBC 2.75 L Hgb 7.5 L Hct 22.7 L MCV MCH 27 L MCHC RDW 17.5 H Plt Count Lymph % (Auto) [place] % (Auto) Lymph # [place] # Baso # Seg Neutrophils % Seg Neuts % (Manual) Lymphocytes % (Manual) Monocytes % (Manual) Eosinophils % (Manual) Basophils % (Manual) Nucleated RBC % Seg Neutrophils # Seg Neutrophils # Man Lymphocytes # (Manual) Monocytes # (Manual) Eosinophils # (Manual) Basophils # (Manual) PT INR Fibrinogen dRVVT Confirm Interp Factor V Activity POC ABG pH POC ABG pCO2 POC ABG pO2 ABG pO2 ABG HCO3 ABG Base Excess ABG Hemoglobin Oxyhemoglobin Sodium Potassium 3.3 L Chloride Carbon Dioxide BUN 42 H Creatinine Glucose 105 H POC Glucose 124 H Lactic Acid Calcium Ionized Calcium Phosphorus 1.70 L Magnesium Direct Bilirubin AST ALT Alkaline Phosphatase Lactate Dehydrogenase Troponin T C-Reactive Protein Total Protein Albumin Prealbumin Triglycerides Cholesterol LDL Cholesterol Direct HDL Cholesterol 25-OH Vitamin D Total PTH Intact Urine pH Urine WBC (Auto) Urine Creatinine Urine Total Protein Fluid Total Protein Vancomycin Trough Rheumatoid Factor Complement C4 Miscellaneous Test Crossmatch 01/22/17 01/22/17 01/23/17 17:16 23:35 05:35 WBC RBC Hgb Hct MCV MCH MCHC RDW Plt Count Lymph % (Auto) [place] % (Auto) Lymph # [place] # Baso # Seg Neutrophils % Seg Neuts % (Manual) Lymphocytes % (Manual) Monocytes % (Manual) Eosinophils % (Manual) Basophils % (Manual) Nucleated RBC % Seg Neutrophils # Seg Neutrophils # Man Lymphocytes # (Manual) Monocytes # (Manual) Eosinophils # (Manual) Basophils # (Manual) PT INR Fibrinogen dRVVT Confirm Interp Factor V Activity POC ABG pH POC ABG pCO2 POC ABG pO2 ABG pO2 ABG HCO3 ABG Base Excess ABG Hemoglobin Oxyhemoglobin Sodium Potassium Chloride Carbon Dioxide BUN Creatinine Glucose POC Glucose 135 H 120 H 111 H Lactic Acid Calcium Ionized Calcium Phosphorus Magnesium Direct Bilirubin AST ALT Alkaline Phosphatase Lactate Dehydrogenase Troponin T C-Reactive Protein Total Protein Albumin Prealbumin Triglycerides Cholesterol LDL Cholesterol Direct HDL Cholesterol 25-OH Vitamin D Total PTH Intact Urine pH Urine WBC (Auto) Urine Creatinine Urine Total Protein Fluid Total Protein Vancomycin Trough Rheumatoid Factor Complement C4 Miscellaneous Test Crossmatch 01/23/17 01/23/17 01/23/17 06:10 17:27 23:44 WBC RBC Hgb Hct MCV MCH MCHC RDW Plt Count Lymph % (Auto) [place] % (Auto) Lymph # [place] # Baso # Seg Neutrophils % Seg Neuts % (Manual) Lymphocytes % (Manual) Monocytes % (Manual) Eosinophils % (Manual) Basophils % (Manual) Nucleated RBC % Seg Neutrophils # Seg Neutrophils # Man Lymphocytes # (Manual) Monocytes # (Manual) Eosinophils # (Manual) Basophils # (Manual) PT INR Fibrinogen dRVVT Confirm Interp Factor V Activity POC ABG pH POC ABG pCO2 POC ABG pO2 ABG pO2 ABG HCO3 ABG Base Excess ABG Hemoglobin Oxyhemoglobin Sodium Potassium 3.3 L Chloride Carbon Dioxide BUN 66 H Creatinine 1.3 H Glucose 109 H POC Glucose 120 H 115 H Lactic Acid Calcium Ionized Calcium Phosphorus 2.20 L D Magnesium Direct Bilirubin AST ALT Alkaline Phosphatase Lactate Dehydrogenase Troponin T C-Reactive Protein Total Protein Albumin Prealbumin Triglycerides Cholesterol LDL Cholesterol Direct HDL Cholesterol 25-OH Vitamin D Total PTH Intact Urine pH Urine WBC (Auto) Urine Creatinine Urine Total Protein Fluid Total Protein Vancomycin Trough Rheumatoid Factor Complement C4 Miscellaneous Test Crossmatch 01/24/17 01/24/17 01/24/17 05:19 05:50 12:19 WBC RBC Hgb Hct MCV MCH MCHC RDW Plt Count Lymph % (Auto) [place] % (Auto) Lymph # [place] # Baso # Seg Neutrophils % Seg Neuts % (Manual) Lymphocytes % (Manual) Monocytes % (Manual) Eosinophils % (Manual) Basophils % (Manual) Nucleated RBC % Seg Neutrophils # Seg Neutrophils # Man Lymphocytes # (Manual) Monocytes # (Manual) Eosinophils # (Manual) Basophils # (Manual) PT INR Fibrinogen dRVVT Confirm Interp Factor V Activity POC ABG pH POC ABG pCO2 POC ABG pO2 ABG pO2 ABG HCO3 ABG Base Excess ABG Hemoglobin Oxyhemoglobin Sodium Potassium Chloride Carbon Dioxide BUN 47 H Creatinine Glucose 117 H POC Glucose 126 H 119 H Lactic Acid Calcium Ionized Calcium Phosphorus 2.30 L Magnesium 1.60 L Direct Bilirubin AST ALT Alkaline Phosphatase Lactate Dehydrogenase Troponin T C-Reactive Protein Total Protein Albumin Prealbumin Triglycerides Cholesterol LDL Cholesterol Direct HDL Cholesterol 25-OH Vitamin D Total PTH Intact Urine pH Urine WBC (Auto) Urine Creatinine Urine Total Protein Fluid Total Protein Vancomycin Trough Rheumatoid Factor Complement C4 Miscellaneous Test Crossmatch 01/24/17 01/25/17 01/25/17 17:08 00:37 04:00 WBC RBC Hgb Hct MCV MCH MCHC RDW Plt Count Lymph % (Auto) [place] % (Auto) Lymph # [place] # Baso # Seg Neutrophils % Seg Neuts % (Manual) Lymphocytes % (Manual) Monocytes % (Manual) Eosinophils % (Manual) Basophils % (Manual) Nucleated RBC % Seg Neutrophils # Seg Neutrophils # Man Lymphocytes # (Manual) Monocytes # (Manual) Eosinophils # (Manual) Basophils # (Manual) PT INR Fibrinogen dRVVT Confirm Interp Factor V Activity POC ABG pH POC ABG pCO2 POC ABG pO2 ABG pO2 ABG HCO3 ABG Base Excess ABG Hemoglobin Oxyhemoglobin Sodium Potassium Chloride Carbon Dioxide BUN 72 H Creatinine 1.3 H Glucose POC Glucose 127 H 110 H Lactic Acid Calcium Ionized Calcium Phosphorus Magnesium Direct Bilirubin AST ALT Alkaline Phosphatase Lactate Dehydrogenase Troponin T C-Reactive Protein Total Protein Albumin Prealbumin Triglycerides Cholesterol LDL Cholesterol Direct HDL Cholesterol 25-OH Vitamin D Total PTH Intact Urine pH Urine WBC (Auto) Urine Creatinine Urine Total Protein Fluid Total Protein Vancomycin Trough Rheumatoid Factor Complement C4 Miscellaneous Test Crossmatch 01/25/17 01/25/17 01/25/17 04:00 11:15 13:05 WBC RBC 2.49 L Hgb 6.7 L Hct 20.9 L MCV MCH 27 L MCHC RDW 18.8 H Plt Count Lymph % (Auto) [place] % (Auto) 10.1 H Lymph # [place] # 1.0 H Baso # Seg Neutrophils % Seg Neuts % (Manual) Lymphocytes % (Manual) Monocytes % (Manual) Eosinophils % (Manual) Basophils % (Manual) Nucleated RBC % Seg Neutrophils # Seg Neutrophils # Man Lymphocytes # (Manual) Monocytes # (Manual) Eosinophils # (Manual) Basophils # (Manual) PT INR Fibrinogen dRVVT Confirm Interp Factor V Activity POC ABG pH POC ABG pCO2 POC ABG pO2 ABG pO2 ABG HCO3 ABG Base Excess ABG Hemoglobin Oxyhemoglobin Sodium Potassium Chloride Carbon Dioxide BUN Creatinine Glucose POC Glucose 128 H Lactic Acid Calcium Ionized Calcium Phosphorus Magnesium Direct Bilirubin AST ALT Alkaline Phosphatase Lactate Dehydrogenase Troponin T C-Reactive Protein Total Protein Albumin Prealbumin Triglycerides Cholesterol LDL Cholesterol Direct HDL Cholesterol 25-OH Vitamin D Total PTH Intact Urine pH Urine WBC (Auto) Urine Creatinine Urine Total Protein Fluid Total Protein Vancomycin Trough Rheumatoid Factor Complement C4 Miscellaneous Test Crossmatch See Detail 01/25/17 01/25/17 01/26/17 18:02 23:07 01:20 WBC RBC Hgb Hct MCV MCH MCHC RDW Plt Count Lymph % (Auto) [place] % (Auto) Lymph # [place] # Baso # Seg Neutrophils % Seg Neuts % (Manual) Lymphocytes % (Manual) Monocytes % (Manual) Eosinophils % (Manual) Basophils % (Manual) Nucleated RBC % Seg Neutrophils # Seg Neutrophils # Man Lymphocytes # (Manual) Monocytes # (Manual) Eosinophils # (Manual) Basophils # (Manual) PT INR Fibrinogen dRVVT Confirm Interp Factor V Activity POC ABG pH POC ABG pCO2 POC ABG pO2 ABG pO2 ABG HCO3 ABG Base Excess ABG Hemoglobin Oxyhemoglobin Sodium Potassium Chloride Carbon Dioxide BUN Creatinine Glucose POC Glucose 120 H 123 H 112 H Lactic Acid Calcium Ionized Calcium Phosphorus Magnesium Direct Bilirubin AST ALT Alkaline Phosphatase Lactate Dehydrogenase Troponin T C-Reactive Protein Total Protein Albumin Prealbumin Triglycerides Cholesterol LDL Cholesterol Direct HDL Cholesterol 25-OH Vitamin D Total PTH Intact Urine pH Urine WBC (Auto) Urine Creatinine Urine Total Protein Fluid Total Protein Vancomycin Trough Rheumatoid Factor Complement C4 Miscellaneous Test Crossmatch 01/26/17 01/26/17 01/26/17 04:20 04:20 11:23 WBC 13.1 H RBC 3.28 L Hgb 9.0 L Hct 26.9 L D MCV MCH 27 L MCHC RDW 17.2 H Plt Count Lymph % (Auto) [place] % (Auto) 9.0 H Lymph # [place] # 1.2 H Baso # Seg Neutrophils % 73.1 H Seg Neuts % (Manual) Lymphocytes % (Manual) Monocytes % (Manual) Eosinophils % (Manual) Basophils % (Manual) Nucleated RBC % Seg Neutrophils # 9.6 H Seg Neutrophils # Man Lymphocytes # (Manual) Monocytes # (Manual) Eosinophils # (Manual) Basophils # (Manual) PT INR Fibrinogen dRVVT Confirm Interp Factor V Activity POC ABG pH POC ABG pCO2 POC ABG pO2 ABG pO2 ABG HCO3 ABG Base Excess ABG Hemoglobin Oxyhemoglobin Sodium Potassium Chloride Carbon Dioxide BUN 51 H Creatinine Glucose 117 H POC Glucose 125 H Lactic Acid Calcium Ionized Calcium Phosphorus Magnesium Direct Bilirubin AST ALT Alkaline Phosphatase Lactate Dehydrogenase Troponin T C-Reactive Protein Total Protein Albumin Prealbumin Triglycerides Cholesterol LDL Cholesterol Direct HDL Cholesterol 25-OH Vitamin D Total PTH Intact Urine pH Urine WBC (Auto) Urine Creatinine Urine Total Protein Fluid Total Protein Vancomycin Trough Rheumatoid Factor Complement C4 Miscellaneous Test Crossmatch 01/26/17 01/27/17 01/27/17 17:11 00:30 04:00 WBC RBC Hgb Hct MCV MCH MCHC RDW Plt Count Lymph % (Auto) [place] % (Auto) Lymph # [place] # Baso # Seg Neutrophils % Seg Neuts % (Manual) Lymphocytes % (Manual) Monocytes % (Manual) Eosinophils % (Manual) Basophils % (Manual) Nucleated RBC % Seg Neutrophils # Seg Neutrophils # Man Lymphocytes # (Manual) Monocytes # (Manual) Eosinophils # (Manual) Basophils # (Manual) PT INR Fibrinogen dRVVT Confirm Interp Factor V Activity POC ABG pH POC ABG pCO2 POC ABG pO2 ABG pO2 ABG HCO3 ABG Base Excess ABG Hemoglobin Oxyhemoglobin Sodium Potassium Chloride 97.7 L Carbon Dioxide 21 L BUN 79 H Creatinine 1.7 H D Glucose 112 H POC Glucose 133 H 135 H Lactic Acid Calcium Ionized Calcium Phosphorus 5.00 H D Magnesium Direct Bilirubin AST ALT Alkaline Phosphatase Lactate Dehydrogenase Troponin T C-Reactive Protein Total Protein Albumin Prealbumin Triglycerides Cholesterol LDL Cholesterol Direct HDL Cholesterol 25-OH Vitamin D Total PTH Intact Urine pH Urine WBC (Auto) Urine Creatinine Urine Total Protein Fluid Total Protein Vancomycin Trough Rheumatoid Factor Complement C4 Miscellaneous Test Crossmatch 01/27/17 01/27/17 01/27/17 05:12 12:18 17:25 WBC RBC Hgb Hct MCV MCH MCHC RDW Plt Count Lymph % (Auto) [place] % (Auto) Lymph # [place] # Baso # Seg Neutrophils % Seg Neuts % (Manual) Lymphocytes % (Manual) Monocytes % (Manual) Eosinophils % (Manual) Basophils % (Manual) Nucleated RBC % Seg Neutrophils # Seg Neutrophils # Man Lymphocytes # (Manual) Monocytes # (Manual) Eosinophils # (Manual) Basophils # (Manual) PT INR Fibrinogen dRVVT Confirm Interp Factor V Activity POC ABG pH POC ABG pCO2 POC ABG pO2 ABG pO2 ABG HCO3 ABG Base Excess ABG Hemoglobin Oxyhemoglobin Sodium Potassium Chloride Carbon Dioxide BUN Creatinine Glucose POC Glucose 116 H 153 H 152 H Lactic Acid Calcium Ionized Calcium Phosphorus Magnesium Direct Bilirubin AST ALT Alkaline Phosphatase Lactate Dehydrogenase Troponin T C-Reactive Protein Total Protein Albumin Prealbumin Triglycerides Cholesterol LDL Cholesterol Direct HDL Cholesterol 25-OH Vitamin D Total PTH Intact Urine pH Urine WBC (Auto) Urine Creatinine Urine Total Protein Fluid Total Protein Vancomycin Trough Rheumatoid Factor Complement C4 Miscellaneous Test Crossmatch 01/27/17 01/28/17 01/28/17 23:42 04:00 04:00 WBC 14.4 H RBC 2.82 L Hgb 7.4 L Hct 23.5 L MCV MCH 26 L MCHC RDW 17.6 H Plt Count Lymph % (Auto) 10.2 L [place] % (Auto) 11.0 H Lymph # [place] # 1.6 H Baso # Seg Neutrophils % 78.0 H Seg Neuts % (Manual) Lymphocytes % (Manual) Monocytes % (Manual) Eosinophils % (Manual) Basophils % (Manual) Nucleated RBC % Seg Neutrophils # 11.3 H Seg Neutrophils # Man Lymphocytes # (Manual) Monocytes # (Manual) Eosinophils # (Manual) Basophils # (Manual) PT INR Fibrinogen dRVVT Confirm Interp Factor V Activity POC ABG pH POC ABG pCO2 POC ABG pO2 ABG pO2 ABG HCO3 ABG Base Excess ABG Hemoglobin Oxyhemoglobin Sodium Potassium Chloride Carbon Dioxide BUN 55 H Creatinine 1.3 H Glucose 114 H POC Glucose 121 H Lactic Acid Calcium Ionized Calcium Phosphorus Magnesium Direct Bilirubin AST ALT Alkaline Phosphatase Lactate Dehydrogenase Troponin T C-Reactive Protein Total Protein Albumin 1.4 L Prealbumin Triglycerides Cholesterol LDL Cholesterol Direct HDL Cholesterol 25-OH Vitamin D Total PTH Intact Urine pH Urine WBC (Auto) Urine Creatinine Urine Total Protein Fluid Total Protein Vancomycin Trough Rheumatoid Factor Complement C4 Miscellaneous Test Crossmatch 01/28/17 01/28/17 01/29/17 04:59 12:30 00:02 WBC RBC Hgb Hct MCV MCH MCHC RDW Plt Count Lymph % (Auto) [place] % (Auto) Lymph # [place] # Baso # Seg Neutrophils % Seg Neuts % (Manual) Lymphocytes % (Manual) Monocytes % (Manual) Eosinophils % (Manual) Basophils % (Manual) Nucleated RBC % Seg Neutrophils # Seg Neutrophils # Man Lymphocytes # (Manual) Monocytes # (Manual) Eosinophils # (Manual) Basophils # (Manual) PT INR Fibrinogen dRVVT Confirm Interp Factor V Activity POC ABG pH POC ABG pCO2 POC ABG pO2 ABG pO2 ABG HCO3 ABG Base Excess ABG Hemoglobin Oxyhemoglobin Sodium Potassium Chloride Carbon Dioxide BUN Creatinine Glucose POC Glucose 126 H 119 H 138 H Lactic Acid Calcium Ionized Calcium Phosphorus Magnesium Direct Bilirubin AST ALT Alkaline Phosphatase Lactate Dehydrogenase Troponin T C-Reactive Protein Total Protein Albumin Prealbumin Triglycerides Cholesterol LDL Cholesterol Direct HDL Cholesterol 25-OH Vitamin D Total PTH Intact Urine pH Urine WBC (Auto) Urine Creatinine Urine Total Protein Fluid Total Protein Vancomycin Trough Rheumatoid Factor Complement C4 Miscellaneous Test Crossmatch 01/29/17 01/29/17 01/29/17 04:58 06:15 11:35 WBC RBC Hgb Hct MCV MCH MCHC RDW Plt Count Lymph % (Auto) [place] % (Auto) Lymph # [place] # Baso # Seg Neutrophils % Seg Neuts % (Manual) Lymphocytes % (Manual) Monocytes % (Manual) Eosinophils % (Manual) Basophils % (Manual) Nucleated RBC % Seg Neutrophils # Seg Neutrophils # Man Lymphocytes # (Manual) Monocytes # (Manual) Eosinophils # (Manual) Basophils # (Manual) PT INR Fibrinogen dRVVT Confirm Interp Factor V Activity POC ABG pH POC ABG pCO2 POC ABG pO2 ABG pO2 ABG HCO3 ABG Base Excess ABG Hemoglobin Oxyhemoglobin Sodium Potassium Chloride Carbon Dioxide BUN 85 H Creatinine 1.7 H Glucose 105 H POC Glucose 114 H 110 H Lactic Acid Calcium Ionized Calcium Phosphorus Magnesium 2.40 H Direct Bilirubin AST ALT Alkaline Phosphatase Lactate Dehydrogenase Troponin T C-Reactive Protein Total Protein Albumin Prealbumin Triglycerides Cholesterol LDL Cholesterol Direct HDL Cholesterol 25-OH Vitamin D Total PTH Intact Urine pH Urine WBC (Auto) Urine Creatinine Urine Total Protein Fluid Total Protein Vancomycin Trough Rheumatoid Factor Complement C4 Miscellaneous Test Crossmatch 01/29/17 01/29/17 01/30/17 18:24 23:41 05:12 WBC RBC Hgb Hct MCV MCH MCHC RDW Plt Count Lymph % (Auto) [place] % (Auto) Lymph # [place] # Baso # Seg Neutrophils % Seg Neuts % (Manual) Lymphocytes % (Manual) Monocytes % (Manual) Eosinophils % (Manual) Basophils % (Manual) Nucleated RBC % Seg Neutrophils # Seg Neutrophils # Man Lymphocytes # (Manual) Monocytes # (Manual) Eosinophils # (Manual) Basophils # (Manual) PT INR Fibrinogen dRVVT Confirm Interp Factor V Activity POC ABG pH POC ABG pCO2 POC ABG pO2 ABG pO2 ABG HCO3 ABG Base Excess ABG Hemoglobin Oxyhemoglobin Sodium Potassium Chloride Carbon Dioxide BUN Creatinine Glucose POC Glucose 109 H 134 H 109 H Lactic Acid Calcium Ionized Calcium Phosphorus Magnesium Direct Bilirubin AST ALT Alkaline Phosphatase Lactate Dehydrogenase Troponin T C-Reactive Protein Total Protein Albumin Prealbumin Triglycerides Cholesterol LDL Cholesterol Direct HDL Cholesterol 25-OH Vitamin D Total PTH Intact Urine pH Urine WBC (Auto) Urine Creatinine Urine Total Protein Fluid Total Protein Vancomycin Trough Rheumatoid Factor Complement C4 Miscellaneous Test Crossmatch 01/30/17 01/30/17 01/30/17 11:26 17:43 23:39 WBC RBC Hgb Hct MCV MCH MCHC RDW Plt Count Lymph % (Auto) [place] % (Auto) Lymph # [place] # Baso # Seg Neutrophils % Seg Neuts % (Manual) Lymphocytes % (Manual) Monocytes % (Manual) Eosinophils % (Manual) Basophils % (Manual) Nucleated RBC % Seg Neutrophils # Seg Neutrophils # Man Lymphocytes # (Manual) Monocytes # (Manual) Eosinophils # (Manual) Basophils # (Manual) PT INR Fibrinogen dRVVT Confirm Interp Factor V Activity POC ABG pH POC ABG pCO2 POC ABG pO2 ABG pO2 ABG HCO3 ABG Base Excess ABG Hemoglobin Oxyhemoglobin Sodium Potassium Chloride Carbon Dioxide BUN Creatinine Glucose POC Glucose 135 H 143 H 122 H Lactic Acid Calcium Ionized Calcium Phosphorus Magnesium Direct Bilirubin AST ALT Alkaline Phosphatase Lactate Dehydrogenase Troponin T C-Reactive Protein Total Protein Albumin Prealbumin Triglycerides Cholesterol LDL Cholesterol Direct HDL Cholesterol 25-OH Vitamin D Total PTH Intact Urine pH Urine WBC (Auto) Urine Creatinine Urine Total Protein Fluid Total Protein Vancomycin Trough Rheumatoid Factor Complement C4 Miscellaneous Test Crossmatch 01/31/17 01/31/17 01/31/17 04:00 05:40 11:12 WBC RBC Hgb Hct MCV MCH MCHC RDW Plt Count Lymph % (Auto) [place] % (Auto) Lymph # [place] # Baso # Seg Neutrophils % Seg Neuts % (Manual) Lymphocytes % (Manual) Monocytes % (Manual) Eosinophils % (Manual) Basophils % (Manual) Nucleated RBC % Seg Neutrophils # Seg Neutrophils # Man Lymphocytes # (Manual) Monocytes # (Manual) Eosinophils # (Manual) Basophils # (Manual) PT INR Fibrinogen dRVVT Confirm Interp Factor V Activity POC ABG pH POC ABG pCO2 POC ABG pO2 ABG pO2 ABG HCO3 ABG Base Excess ABG Hemoglobin Oxyhemoglobin Sodium Potassium Chloride Carbon Dioxide BUN 78 H Creatinine 1.5 H Glucose 108 H POC Glucose 123 H Lactic Acid Calcium Ionized Calcium Phosphorus Magnesium Direct Bilirubin AST ALT Alkaline Phosphatase Lactate Dehydrogenase Troponin T C-Reactive Protein 8.10 H Total Protein Albumin Prealbumin Triglycerides Cholesterol LDL Cholesterol Direct HDL Cholesterol 25-OH Vitamin D Total PTH Intact Urine pH Urine WBC (Auto) Urine Creatinine Urine Total Protein Fluid Total Protein Vancomycin Trough Rheumatoid Factor Complement C4 Miscellaneous Test Crossmatch 01/31/17 01/31/17 01/31/17 11:16 17:45 17:50 WBC RBC Hgb Hct MCV MCH MCHC RDW Plt Count Lymph % (Auto) [place] % (Auto) Lymph # [place] # Baso # Seg Neutrophils % Seg Neuts % (Manual) Lymphocytes % (Manual) Monocytes % (Manual) Eosinophils % (Manual) Basophils % (Manual) Nucleated RBC % Seg Neutrophils # Seg Neutrophils # Man Lymphocytes # (Manual) Monocytes # (Manual) Eosinophils # (Manual) Basophils # (Manual) PT INR Fibrinogen dRVVT Confirm Interp Factor V Activity POC ABG pH POC ABG pCO2 POC ABG pO2 ABG pO2 ABG HCO3 ABG Base Excess ABG Hemoglobin Oxyhemoglobin Sodium Potassium Chloride Carbon Dioxide BUN Creatinine Glucose POC Glucose 119 H 111 H Lactic Acid Calcium Ionized Calcium Phosphorus Magnesium Direct Bilirubin AST ALT Alkaline Phosphatase Lactate Dehydrogenase Troponin T C-Reactive Protein Total Protein Albumin Prealbumin Triglycerides Cholesterol LDL Cholesterol Direct HDL Cholesterol 25-OH Vitamin D Total PTH Intact 6.76 L Urine pH Urine WBC (Auto) Urine Creatinine Urine Total Protein Fluid Total Protein Vancomycin Trough Rheumatoid Factor Complement C4 Miscellaneous Test Crossmatch 01/31/17 02/01/17 02/01/17 23:19 05:42 09:24 WBC RBC Hgb Hct MCV MCH MCHC RDW Plt Count Lymph % (Auto) [place] % (Auto) Lymph # [place] # Baso # Seg Neutrophils % Seg Neuts % (Manual) Lymphocytes % (Manual) Monocytes % (Manual) Eosinophils % (Manual) Basophils % (Manual) Nucleated RBC % Seg Neutrophils # Seg Neutrophils # Man Lymphocytes # (Manual) Monocytes # (Manual) Eosinophils # (Manual) Basophils # (Manual) PT INR Fibrinogen dRVVT Confirm Interp Factor V Activity POC ABG pH POC ABG pCO2 POC ABG pO2 ABG pO2 ABG HCO3 ABG Base Excess ABG Hemoglobin Oxyhemoglobin Sodium Potassium Chloride Carbon Dioxide BUN Creatinine Glucose POC Glucose 118 H 122 H Lactic Acid Calcium Ionized Calcium Phosphorus Magnesium 2.60 H Direct Bilirubin AST ALT Alkaline Phosphatase Lactate Dehydrogenase Troponin T C-Reactive Protein Total Protein Albumin Prealbumin Triglycerides Cholesterol LDL Cholesterol Direct HDL Cholesterol 25-OH Vitamin D Total PTH Intact Urine pH Urine WBC (Auto) Urine Creatinine Urine Total Protein Fluid Total Protein Vancomycin Trough Rheumatoid Factor Complement C4 Miscellaneous Test Crossmatch 02/01/17 02/01/17 02/02/17 09:24 12:15 07:40 WBC RBC Hgb Hct MCV MCH MCHC RDW Plt Count Lymph % (Auto) [place] % (Auto) Lymph # [place] # Baso # Seg Neutrophils % Seg Neuts % (Manual) Lymphocytes % (Manual) Monocytes % (Manual) Eosinophils % (Manual) Basophils % (Manual) Nucleated RBC % Seg Neutrophils # Seg Neutrophils # Man Lymphocytes # (Manual) Monocytes # (Manual) Eosinophils # (Manual) Basophils # (Manual) PT INR Fibrinogen dRVVT Confirm Interp Factor V Activity POC ABG pH POC ABG pCO2 POC ABG pO2 ABG pO2 ABG HCO3 ABG Base Excess ABG Hemoglobin Oxyhemoglobin Sodium Potassium Chloride Carbon Dioxide BUN 102 H 72 H Creatinine 1.9 H 1.5 H Glucose 120 H POC Glucose 156 H Lactic Acid Calcium Ionized Calcium Phosphorus Magnesium Direct Bilirubin AST ALT Alkaline Phosphatase Lactate Dehydrogenase Troponin T C-Reactive Protein Total Protein Albumin Prealbumin Triglycerides Cholesterol LDL Cholesterol Direct HDL Cholesterol 25-OH Vitamin D Total PTH Intact Urine pH Urine WBC (Auto) Urine Creatinine Urine Total Protein Fluid Total Protein Vancomycin Trough Rheumatoid Factor Complement C4 Miscellaneous Test Crossmatch 02/02/17 02/02/17 02/03/17 10:16 12:11 00:08 WBC 12.0 H RBC 3.08 L Hgb 8.3 L Hct 25.6 L MCV MCH 27 L MCHC RDW 18.2 H Plt Count Lymph % (Auto) [place] % (Auto) Lymph # [place] # Baso # Seg Neutrophils % 78.4 H Seg Neuts % (Manual) Lymphocytes % (Manual) Monocytes % (Manual) Eosinophils % (Manual) Basophils % (Manual) Nucleated RBC % Seg Neutrophils # 9.4 H Seg Neutrophils # Man Lymphocytes # (Manual) Monocytes # (Manual) Eosinophils # (Manual) Basophils # (Manual) PT INR Fibrinogen dRVVT Confirm Interp Factor V Activity POC ABG pH POC ABG pCO2 POC ABG pO2 ABG pO2 ABG HCO3 ABG Base Excess ABG Hemoglobin Oxyhemoglobin Sodium Potassium Chloride Carbon Dioxide BUN Creatinine Glucose POC Glucose 110 H 120 H Lactic Acid Calcium Ionized Calcium Phosphorus Magnesium Direct Bilirubin AST ALT Alkaline Phosphatase Lactate Dehydrogenase Troponin T C-Reactive Protein Total Protein Albumin Prealbumin Triglycerides Cholesterol LDL Cholesterol Direct HDL Cholesterol 25-OH Vitamin D Total PTH Intact Urine pH Urine WBC (Auto) Urine Creatinine Urine Total Protein Fluid Total Protein Vancomycin Trough Rheumatoid Factor Complement C4 Miscellaneous Test Crossmatch 02/03/17 02/03/17 02/03/17 05:41 07:38 11:31 WBC RBC Hgb Hct MCV MCH MCHC RDW Plt Count Lymph % (Auto) [place] % (Auto) Lymph # [place] # Baso # Seg Neutrophils % Seg Neuts % (Manual) Lymphocytes % (Manual) Monocytes % (Manual) Eosinophils % (Manual) Basophils % (Manual) Nucleated RBC % Seg Neutrophils # Seg Neutrophils # Man Lymphocytes # (Manual) Monocytes # (Manual) Eosinophils # (Manual) Basophils # (Manual) PT INR Fibrinogen dRVVT Confirm Interp Factor V Activity POC ABG pH POC ABG pCO2 POC ABG pO2 ABG pO2 ABG HCO3 ABG Base Excess ABG Hemoglobin Oxyhemoglobin Sodium 134 L Potassium Chloride Carbon Dioxide 21 L BUN 91 H Creatinine 1.9 H Glucose 110 H POC Glucose 119 H 119 H Lactic Acid Calcium 10.3 H Ionized Calcium Phosphorus Magnesium Direct Bilirubin AST ALT Alkaline Phosphatase Lactate Dehydrogenase Troponin T C-Reactive Protein Total Protein Albumin Prealbumin Triglycerides Cholesterol LDL Cholesterol Direct HDL Cholesterol 25-OH Vitamin D Total PTH Intact Urine pH Urine WBC (Auto) Urine Creatinine Urine Total Protein Fluid Total Protein Vancomycin Trough Rheumatoid Factor Complement C4 Miscellaneous Test Crossmatch 02/03/17 02/04/17 02/04/17 17:13 04:00 05:18 WBC RBC Hgb Hct MCV MCH MCHC RDW Plt Count Lymph % (Auto) [place] % (Auto) Lymph # [place] # Baso # Seg Neutrophils % Seg Neuts % (Manual) Lymphocytes % (Manual) Monocytes % (Manual) Eosinophils % (Manual) Basophils % (Manual) Nucleated RBC % Seg Neutrophils # Seg Neutrophils # Man Lymphocytes # (Manual) Monocytes # (Manual) Eosinophils # (Manual) Basophils # (Manual) PT INR Fibrinogen dRVVT Confirm Interp Factor V Activity POC ABG pH POC ABG pCO2 POC ABG pO2 ABG pO2 ABG HCO3 ABG Base Excess ABG Hemoglobin Oxyhemoglobin Sodium 136 L Potassium Chloride Carbon Dioxide BUN 58 H Creatinine 1.3 H Glucose 103 H POC Glucose 133 H 132 H Lactic Acid Calcium Ionized Calcium Phosphorus 2.00 L D Magnesium 1.60 L Direct Bilirubin AST ALT Alkaline Phosphatase Lactate Dehydrogenase Troponin T C-Reactive Protein Total Protein Albumin Prealbumin Triglycerides Cholesterol LDL Cholesterol Direct HDL Cholesterol 25-OH Vitamin D Total PTH Intact Urine pH Urine WBC (Auto) Urine Creatinine Urine Total Protein Fluid Total Protein Vancomycin Trough Rheumatoid Factor Complement C4 Miscellaneous Test Crossmatch 02/05/17 02/05/17 02/05/17 00:01 04:00 06:42 WBC RBC Hgb Hct MCV MCH MCHC RDW Plt Count Lymph % (Auto) [place] % (Auto) Lymph # [place] # Baso # Seg Neutrophils % Seg Neuts % (Manual) Lymphocytes % (Manual) Monocytes % (Manual) Eosinophils % (Manual) Basophils % (Manual) Nucleated RBC % Seg Neutrophils # Seg Neutrophils # Man Lymphocytes # (Manual) Monocytes # (Manual) Eosinophils # (Manual) Basophils # (Manual) PT INR Fibrinogen dRVVT Confirm Interp Factor V Activity POC ABG pH POC ABG pCO2 POC ABG pO2 ABG pO2 ABG HCO3 ABG Base Excess ABG Hemoglobin Oxyhemoglobin Sodium Potassium Chloride Carbon Dioxide BUN 83 H Creatinine 1.8 H Glucose POC Glucose 119 H 110 H Lactic Acid Calcium 10.7 H Ionized Calcium Phosphorus Magnesium Direct Bilirubin AST ALT Alkaline Phosphatase Lactate Dehydrogenase Troponin T C-Reactive Protein Total Protein Albumin Prealbumin Triglycerides Cholesterol LDL Cholesterol Direct HDL Cholesterol 25-OH Vitamin D Total PTH Intact Urine pH Urine WBC (Auto) Urine Creatinine Urine Total Protein Fluid Total Protein Vancomycin Trough Rheumatoid Factor Complement C4 Miscellaneous Test Crossmatch 02/05/17 02/05/17 02/05/17 09:59 11:47 23:44 WBC RBC 2.69 L Hgb 7.2 L Hct 22.5 L MCV MCH 27 L MCHC RDW 18.6 H Plt Count Lymph % (Auto) [place] % (Auto) 9.2 H Lymph # [place] # 0.9 H Baso # Seg Neutrophils % Seg Neuts % (Manual) Lymphocytes % (Manual) Monocytes % (Manual) Eosinophils % (Manual) Basophils % (Manual) Nucleated RBC % Seg Neutrophils # Seg Neutrophils # Man Lymphocytes # (Manual) Monocytes # (Manual) Eosinophils # (Manual) Basophils # (Manual) PT INR Fibrinogen dRVVT Confirm Interp Factor V Activity POC ABG pH POC ABG pCO2 POC ABG pO2 ABG pO2 ABG HCO3 ABG Base Excess ABG Hemoglobin Oxyhemoglobin Sodium Potassium Chloride Carbon Dioxide BUN Creatinine Glucose POC Glucose 130 H 123 H Lactic Acid Calcium Ionized Calcium Phosphorus Magnesium Direct Bilirubin AST ALT Alkaline Phosphatase Lactate Dehydrogenase Troponin T C-Reactive Protein Total Protein Albumin Prealbumin Triglycerides Cholesterol LDL Cholesterol Direct HDL Cholesterol 25-OH Vitamin D Total PTH Intact Urine pH Urine WBC (Auto) Urine Creatinine Urine Total Protein Fluid Total Protein Vancomycin Trough Rheumatoid Factor Complement C4 Miscellaneous Test Crossmatch 02/06/17 02/06/17 02/06/17 04:45 05:58 12:01 WBC RBC Hgb Hct MCV MCH MCHC RDW Plt Count Lymph % (Auto) [place] % (Auto) Lymph # [place] # Baso # Seg Neutrophils % Seg Neuts % (Manual) Lymphocytes % (Manual) Monocytes % (Manual) Eosinophils % (Manual) Basophils % (Manual) Nucleated RBC % Seg Neutrophils # Seg Neutrophils # Man Lymphocytes # (Manual) Monocytes # (Manual) Eosinophils # (Manual) Basophils # (Manual) PT INR Fibrinogen dRVVT Confirm Interp Factor V Activity POC ABG pH POC ABG pCO2 POC ABG pO2 ABG pO2 ABG HCO3 ABG Base Excess ABG Hemoglobin Oxyhemoglobin Sodium Potassium Chloride Carbon Dioxide BUN 101 H Creatinine 2.0 H Glucose 102 H POC Glucose 115 H 132 H Lactic Acid Calcium 10.6 H Ionized Calcium Phosphorus Magnesium Direct Bilirubin AST ALT Alkaline Phosphatase 199 H Lactate Dehydrogenase Troponin T C-Reactive Protein Total Protein Albumin 1.4 L Prealbumin Triglycerides Cholesterol LDL Cholesterol Direct HDL Cholesterol 25-OH Vitamin D Total PTH Intact Urine pH Urine WBC (Auto) Urine Creatinine Urine Total Protein Fluid Total Protein Vancomycin Trough Rheumatoid Factor Complement C4 Miscellaneous Test Crossmatch 02/06/17 02/06/17 02/07/17 17:41 23:32 05:04 WBC RBC Hgb Hct MCV MCH MCHC RDW Plt Count Lymph % (Auto) [place] % (Auto) Lymph # [place] # Baso # Seg Neutrophils % Seg Neuts % (Manual) Lymphocytes % (Manual) Monocytes % (Manual) Eosinophils % (Manual) Basophils % (Manual) Nucleated RBC % Seg Neutrophils # Seg Neutrophils # Man Lymphocytes # (Manual) Monocytes # (Manual) Eosinophils # (Manual) Basophils # (Manual) PT INR Fibrinogen dRVVT Confirm Interp Factor V Activity POC ABG pH POC ABG pCO2 POC ABG pO2 ABG pO2 ABG HCO3 ABG Base Excess ABG Hemoglobin Oxyhemoglobin Sodium Potassium Chloride Carbon Dioxide BUN Creatinine Glucose POC Glucose 134 H 128 H 119 H Lactic Acid Calcium Ionized Calcium Phosphorus Magnesium Direct Bilirubin AST ALT Alkaline Phosphatase Lactate Dehydrogenase Troponin T C-Reactive Protein Total Protein Albumin Prealbumin Triglycerides Cholesterol LDL Cholesterol Direct HDL Cholesterol 25-OH Vitamin D Total PTH Intact Urine pH Urine WBC (Auto) Urine Creatinine Urine Total Protein Fluid Total Protein Vancomycin Trough Rheumatoid Factor Complement C4 Miscellaneous Test Crossmatch 02/07/17 02/07/17 02/07/17 06:30 11:20 17:13 WBC RBC Hgb Hct MCV MCH MCHC RDW Plt Count Lymph % (Auto) [place] % (Auto) Lymph # [place] # Baso # Seg Neutrophils % Seg Neuts % (Manual) Lymphocytes % (Manual) Monocytes % (Manual) Eosinophils % (Manual) Basophils % (Manual) Nucleated RBC % Seg Neutrophils # Seg Neutrophils # Man Lymphocytes # (Manual) Monocytes # (Manual) Eosinophils # (Manual) Basophils # (Manual) PT INR Fibrinogen dRVVT Confirm Interp Factor V Activity POC ABG pH POC ABG pCO2 POC ABG pO2 ABG pO2 ABG HCO3 ABG Base Excess ABG Hemoglobin Oxyhemoglobin Sodium Potassium 3.4 L Chloride Carbon Dioxide BUN 69 H Creatinine 1.5 H Glucose 105 H POC Glucose 117 H 110 H Lactic Acid Calcium Ionized Calcium Phosphorus Magnesium 1.50 L Direct Bilirubin AST ALT Alkaline Phosphatase Lactate Dehydrogenase Troponin T C-Reactive Protein Total Protein Albumin Prealbumin Triglycerides Cholesterol LDL Cholesterol Direct HDL Cholesterol 25-OH Vitamin D Total PTH Intact Urine pH Urine WBC (Auto) Urine Creatinine Urine Total Protein Fluid Total Protein Vancomycin Trough Rheumatoid Factor Complement C4 Miscellaneous Test Crossmatch 02/07/17 02/08/17 02/08/17 20:47 04:00 11:43 WBC RBC Hgb Hct MCV MCH MCHC RDW Plt Count Lymph % (Auto) [place] % (Auto) Lymph # [place] # Baso # Seg Neutrophils % Seg Neuts % (Manual) Lymphocytes % (Manual) Monocytes % (Manual) Eosinophils % (Manual) Basophils % (Manual) Nucleated RBC % Seg Neutrophils # Seg Neutrophils # Man Lymphocytes # (Manual) Monocytes # (Manual) Eosinophils # (Manual) Basophils # (Manual) PT INR Fibrinogen dRVVT Confirm Interp Factor V Activity POC ABG pH POC ABG pCO2 POC ABG pO2 ABG pO2 ABG HCO3 ABG Base Excess ABG Hemoglobin Oxyhemoglobin Sodium Potassium Chloride Carbon Dioxide BUN 86 H Creatinine 1.7 H Glucose POC Glucose 115 H 122 H Lactic Acid Calcium Ionized Calcium Phosphorus Magnesium 1.60 L Direct Bilirubin AST ALT Alkaline Phosphatase Lactate Dehydrogenase Troponin T C-Reactive Protein Total Protein Albumin Prealbumin Triglycerides Cholesterol LDL Cholesterol Direct HDL Cholesterol 25-OH Vitamin D Total PTH Intact Urine pH Urine WBC (Auto) Urine Creatinine Urine Total Protein Fluid Total Protein Vancomycin Trough Rheumatoid Factor Complement C4 Miscellaneous Test Crossmatch 02/08/17 02/09/17 02/09/17 17:36 05:44 11:30 WBC RBC Hgb Hct MCV MCH MCHC RDW Plt Count Lymph % (Auto) [place] % (Auto) Lymph # [place] # Baso # Seg Neutrophils % Seg Neuts % (Manual) Lymphocytes % (Manual) Monocytes % (Manual) Eosinophils % (Manual) Basophils % (Manual) Nucleated RBC % Seg Neutrophils # Seg Neutrophils # Man Lymphocytes # (Manual) Monocytes # (Manual) Eosinophils # (Manual) Basophils # (Manual) PT INR Fibrinogen dRVVT Confirm Interp Factor V Activity POC ABG pH POC ABG pCO2 POC ABG pO2 ABG pO2 ABG HCO3 ABG Base Excess ABG Hemoglobin Oxyhemoglobin Sodium Potassium Chloride Carbon Dioxide BUN Creatinine Glucose POC Glucose 125 H 117 H 120 H Lactic Acid Calcium Ionized Calcium Phosphorus Magnesium Direct Bilirubin AST ALT Alkaline Phosphatase Lactate Dehydrogenase Troponin T C-Reactive Protein Total Protein Albumin Prealbumin Triglycerides Cholesterol LDL Cholesterol Direct HDL Cholesterol 25-OH Vitamin D Total PTH Intact Urine pH Urine WBC (Auto) Urine Creatinine Urine Total Protein Fluid Total Protein Vancomycin Trough Rheumatoid Factor Complement C4 Miscellaneous Test Crossmatch 02/09/17 02/10/17 02/10/17 23:45 05:45 05:50 WBC RBC Hgb Hct MCV MCH MCHC RDW Plt Count Lymph % (Auto) [place] % (Auto) Lymph # [place] # Baso # Seg Neutrophils % Seg Neuts % (Manual) Lymphocytes % (Manual) Monocytes % (Manual) Eosinophils % (Manual) Basophils % (Manual) Nucleated RBC % Seg Neutrophils # Seg Neutrophils # Man Lymphocytes # (Manual) Monocytes # (Manual) Eosinophils # (Manual) Basophils # (Manual) PT INR Fibrinogen dRVVT Confirm Interp Factor V Activity POC ABG pH POC ABG pCO2 POC ABG pO2 ABG pO2 ABG HCO3 ABG Base Excess ABG Hemoglobin Oxyhemoglobin Sodium Potassium Chloride Carbon Dioxide BUN 85 H Creatinine 1.8 H Glucose 109 H POC Glucose 114 H 189 H Lactic Acid Calcium Ionized Calcium Phosphorus Magnesium 2.50 H Direct Bilirubin AST ALT Alkaline Phosphatase Lactate Dehydrogenase Troponin T C-Reactive Protein Total Protein Albumin Prealbumin Triglycerides Cholesterol LDL Cholesterol Direct HDL Cholesterol 25-OH Vitamin D Total PTH Intact Urine pH Urine WBC (Auto) Urine Creatinine Urine Total Protein Fluid Total Protein Vancomycin Trough Rheumatoid Factor Complement C4 Miscellaneous Test Crossmatch 02/10/17 02/10/17 02/10/17 05:51 11:55 17:42 WBC RBC Hgb Hct MCV MCH MCHC RDW Plt Count Lymph % (Auto) [place] % (Auto) Lymph # [place] # Baso # Seg Neutrophils % Seg Neuts % (Manual) Lymphocytes % (Manual) Monocytes % (Manual) Eosinophils % (Manual) Basophils % (Manual) Nucleated RBC % Seg Neutrophils # Seg Neutrophils # Man Lymphocytes # (Manual) Monocytes # (Manual) Eosinophils # (Manual) Basophils # (Manual) PT INR Fibrinogen dRVVT Confirm Interp Factor V Activity POC ABG pH POC ABG pCO2 POC ABG pO2 ABG pO2 ABG HCO3 ABG Base Excess ABG Hemoglobin Oxyhemoglobin Sodium Potassium Chloride Carbon Dioxide BUN Creatinine Glucose POC Glucose 106 H 146 H 132 H Lactic Acid Calcium Ionized Calcium Phosphorus Magnesium Direct Bilirubin AST ALT Alkaline Phosphatase Lactate Dehydrogenase Troponin T C-Reactive Protein Total Protein Albumin Prealbumin Triglycerides Cholesterol LDL Cholesterol Direct HDL Cholesterol 25-OH Vitamin D Total PTH Intact Urine pH Urine WBC (Auto) Urine Creatinine Urine Total Protein Fluid Total Protein Vancomycin Trough Rheumatoid Factor Complement C4 Miscellaneous Test Crossmatch 02/10/17 02/11/17 02/11/17 23:43 04:08 05:34 WBC RBC Hgb Hct MCV MCH MCHC RDW Plt Count Lymph % (Auto) [place] % (Auto) Lymph # [place] # Baso # Seg Neutrophils % Seg Neuts % (Manual) Lymphocytes % (Manual) Monocytes % (Manual) Eosinophils % (Manual) Basophils % (Manual) Nucleated RBC % Seg Neutrophils # Seg Neutrophils # Man Lymphocytes # (Manual) Monocytes # (Manual) Eosinophils # (Manual) Basophils # (Manual) PT INR Fibrinogen dRVVT Confirm Interp Factor V Activity POC ABG pH POC ABG pCO2 POC ABG pO2 ABG pO2 ABG HCO3 ABG Base Excess ABG Hemoglobin Oxyhemoglobin Sodium 136 L Potassium Chloride Carbon Dioxide BUN 65 H Creatinine 1.7 H Glucose 105 H POC Glucose 130 H 113 H Lactic Acid Calcium Ionized Calcium Phosphorus Magnesium Direct Bilirubin AST ALT Alkaline Phosphatase Lactate Dehydrogenase Troponin T C-Reactive Protein Total Protein Albumin Prealbumin Triglycerides Cholesterol LDL Cholesterol Direct HDL Cholesterol 25-OH Vitamin D Total PTH Intact Urine pH Urine WBC (Auto) Urine Creatinine Urine Total Protein Fluid Total Protein Vancomycin Trough Rheumatoid Factor Complement C4 Miscellaneous Test Crossmatch 02/11/17 02/11/17 02/12/17 11:56 23:18 06:19 WBC RBC Hgb Hct MCV MCH MCHC RDW Plt Count Lymph % (Auto) [place] % (Auto) Lymph # [place] # Baso # Seg Neutrophils % Seg Neuts % (Manual) Lymphocytes % (Manual) Monocytes % (Manual) Eosinophils % (Manual) Basophils % (Manual) Nucleated RBC % Seg Neutrophils # Seg Neutrophils # Man Lymphocytes # (Manual) Monocytes # (Manual) Eosinophils # (Manual) Basophils # (Manual) PT INR Fibrinogen dRVVT Confirm Interp Factor V Activity POC ABG pH POC ABG pCO2 POC ABG pO2 ABG pO2 ABG HCO3 ABG Base Excess ABG Hemoglobin Oxyhemoglobin Sodium 136 L Potassium Chloride 97.1 L Carbon Dioxide BUN 93 H Creatinine 2.4 H Glucose POC Glucose 126 H 119 H Lactic Acid Calcium 11.0 H Ionized Calcium Phosphorus Magnesium Direct Bilirubin AST ALT Alkaline Phosphatase Lactate Dehydrogenase Troponin T C-Reactive Protein Total Protein Albumin Prealbumin Triglycerides Cholesterol LDL Cholesterol Direct HDL Cholesterol 25-OH Vitamin D Total PTH Intact Urine pH Urine WBC (Auto) Urine Creatinine Urine Total Protein Fluid Total Protein Vancomycin Trough Rheumatoid Factor Complement C4 Miscellaneous Test Crossmatch 02/12/17 02/12/17 02/12/17 08:00 10:25 11:42 WBC 15.4 H RBC 2.63 L Hgb 6.9 L Hct 22.6 L MCV MCH 26 L MCHC RDW 20.5 H Plt Count Lymph % (Auto) [place] % (Auto) Lymph # [place] # Baso # Seg Neutrophils % Seg Neuts % (Manual) Lymphocytes % (Manual) Monocytes % (Manual) Eosinophils % (Manual) Basophils % (Manual) Nucleated RBC % Seg Neutrophils # Seg Neutrophils # Man Lymphocytes # (Manual) Monocytes # (Manual) Eosinophils # (Manual) Basophils # (Manual) PT INR Fibrinogen dRVVT Confirm Interp Factor V Activity POC ABG pH POC ABG pCO2 POC ABG pO2 ABG pO2 ABG HCO3 ABG Base Excess ABG Hemoglobin Oxyhemoglobin Sodium Potassium Chloride Carbon Dioxide BUN Creatinine Glucose POC Glucose 142 H Lactic Acid Calcium Ionized Calcium Phosphorus Magnesium Direct Bilirubin AST ALT Alkaline Phosphatase Lactate Dehydrogenase Troponin T C-Reactive Protein Total Protein Albumin Prealbumin Triglycerides Cholesterol LDL Cholesterol Direct HDL Cholesterol 25-OH Vitamin D Total PTH Intact Urine pH Urine WBC (Auto) Urine Creatinine Urine Total Protein Fluid Total Protein Vancomycin Trough Rheumatoid Factor Complement C4 Miscellaneous Test Crossmatch See Detail 02/12/17 02/13/17 02/13/17 18:04 00:04 05:00 WBC RBC Hgb Hct MCV MCH MCHC RDW Plt Count Lymph % (Auto) [place] % (Auto) Lymph # [place] # Baso # Seg Neutrophils % Seg Neuts % (Manual) Lymphocytes % (Manual) Monocytes % (Manual) Eosinophils % (Manual) Basophils % (Manual) Nucleated RBC % Seg Neutrophils # Seg Neutrophils # Man Lymphocytes # (Manual) Monocytes # (Manual) Eosinophils # (Manual) Basophils # (Manual) PT INR Fibrinogen dRVVT Confirm Interp Factor V Activity POC ABG pH POC ABG pCO2 POC ABG pO2 ABG pO2 ABG HCO3 ABG Base Excess ABG Hemoglobin Oxyhemoglobin Sodium 134 L Potassium Chloride 96.1 L Carbon Dioxide 20 L BUN 125 H Creatinine 3.0 H Glucose 111 H POC Glucose 135 H 109 H Lactic Acid Calcium 11.3 H Ionized Calcium Phosphorus Magnesium Direct Bilirubin AST ALT Alkaline Phosphatase Lactate Dehydrogenase Troponin T C-Reactive Protein Total Protein Albumin Prealbumin Triglycerides Cholesterol LDL Cholesterol Direct HDL Cholesterol 25-OH Vitamin D Total PTH Intact Urine pH Urine WBC (Auto) Urine Creatinine Urine Total Protein Fluid Total Protein Vancomycin Trough Rheumatoid Factor Complement C4 Miscellaneous Test Crossmatch 02/13/17 02/13/17 02/13/17 05:00 05:28 12:03 WBC 11.9 H RBC 2.92 L Hgb 7.8 L Hct 25.2 L MCV MCH 27 L MCHC RDW 19.3 H Plt Count Lymph % (Auto) [place] % (Auto) Lymph # [place] # Baso # Seg Neutrophils % Seg Neuts % (Manual) Lymphocytes % (Manual) Monocytes % (Manual) Eosinophils % (Manual) Basophils % (Manual) Nucleated RBC % Seg Neutrophils # Seg Neutrophils # Man Lymphocytes # (Manual) Monocytes # (Manual) Eosinophils # (Manual) Basophils # (Manual) PT INR Fibrinogen dRVVT Confirm Interp Factor V Activity POC ABG pH POC ABG pCO2 POC ABG pO2 ABG pO2 ABG HCO3 ABG Base Excess ABG Hemoglobin Oxyhemoglobin Sodium Potassium Chloride Carbon Dioxide BUN Creatinine Glucose POC Glucose 124 H 160 H Lactic Acid Calcium Ionized Calcium Phosphorus Magnesium Direct Bilirubin AST ALT Alkaline Phosphatase Lactate Dehydrogenase Troponin T C-Reactive Protein Total Protein Albumin Prealbumin Triglycerides Cholesterol LDL Cholesterol Direct HDL Cholesterol 25-OH Vitamin D Total PTH Intact Urine pH Urine WBC (Auto) Urine Creatinine Urine Total Protein Fluid Total Protein Vancomycin Trough Rheumatoid Factor Complement C4 Miscellaneous Test Crossmatch 02/13/17 02/14/17 02/14/17 18:09 06:16 08:08 WBC 15.2 H RBC 2.97 L Hgb 8.1 L Hct 26.3 L MCV MCH MCHC RDW 19.3 H Plt Count Lymph % (Auto) [place] % (Auto) Lymph # [place] # Baso # Seg Neutrophils % Seg Neuts % (Manual) Lymphocytes % (Manual) Monocytes % (Manual) Eosinophils % (Manual) Basophils % (Manual) Nucleated RBC % Seg Neutrophils # Seg Neutrophils # Man Lymphocytes # (Manual) Monocytes # (Manual) Eosinophils # (Manual) Basophils # (Manual) PT INR Fibrinogen dRVVT Confirm Interp Factor V Activity POC ABG pH POC ABG pCO2 POC ABG pO2 ABG pO2 ABG HCO3 ABG Base Excess ABG Hemoglobin Oxyhemoglobin Sodium Potassium Chloride Carbon Dioxide BUN Creatinine Glucose POC Glucose 110 H 112 H Lactic Acid Calcium Ionized Calcium Phosphorus Magnesium Direct Bilirubin AST ALT Alkaline Phosphatase Lactate Dehydrogenase Troponin T C-Reactive Protein Total Protein Albumin Prealbumin Triglycerides Cholesterol LDL Cholesterol Direct HDL Cholesterol 25-OH Vitamin D Total PTH Intact Urine pH Urine WBC (Auto) Urine Creatinine Urine Total Protein Fluid Total Protein Vancomycin Trough Rheumatoid Factor Complement C4 Miscellaneous Test Crossmatch 02/14/17 02/14/17 02/15/17 08:08 17:41 04:15 WBC RBC Hgb Hct MCV MCH MCHC RDW Plt Count Lymph % (Auto) [place] % (Auto) Lymph # [place] # Baso # Seg Neutrophils % Seg Neuts % (Manual) Lymphocytes % (Manual) Monocytes % (Manual) Eosinophils % (Manual) Basophils % (Manual) Nucleated RBC % Seg Neutrophils # Seg Neutrophils # Man Lymphocytes # (Manual) Monocytes # (Manual) Eosinophils # (Manual) Basophils # (Manual) PT INR Fibrinogen dRVVT Confirm Interp Factor V Activity POC ABG pH POC ABG pCO2 POC ABG pO2 ABG pO2 ABG HCO3 ABG Base Excess ABG Hemoglobin Oxyhemoglobin Sodium Potassium Chloride Carbon Dioxide 18 L 21 L BUN 79 H 113 H Creatinine 2.1 H 2.8 H Glucose POC Glucose 118 H Lactic Acid Calcium 10.7 H Ionized Calcium Phosphorus 1.70 L D Magnesium 1.60 L Direct Bilirubin AST ALT Alkaline Phosphatase Lactate Dehydrogenase Troponin T C-Reactive Protein Total Protein Albumin Prealbumin Triglycerides Cholesterol LDL Cholesterol Direct HDL Cholesterol 25-OH Vitamin D Total PTH Intact Urine pH Urine WBC (Auto) Urine Creatinine Urine Total Protein Fluid Total Protein Vancomycin Trough Rheumatoid Factor Complement C4 Miscellaneous Test Crossmatch 02/15/17 02/15/17 02/15/17 06:06 11:31 17:52 WBC RBC Hgb Hct MCV MCH MCHC RDW Plt Count Lymph % (Auto) [place] % (Auto) Lymph # [place] # Baso # Seg Neutrophils % Seg Neuts % (Manual) Lymphocytes % (Manual) Monocytes % (Manual) Eosinophils % (Manual) Basophils % (Manual) Nucleated RBC % Seg Neutrophils # Seg Neutrophils # Man Lymphocytes # (Manual) Monocytes # (Manual) Eosinophils # (Manual) Basophils # (Manual) PT INR Fibrinogen dRVVT Confirm Interp Factor V Activity POC ABG pH POC ABG pCO2 POC ABG pO2 ABG pO2 ABG HCO3 ABG Base Excess ABG Hemoglobin Oxyhemoglobin Sodium Potassium Chloride Carbon Dioxide BUN Creatinine Glucose POC Glucose 115 H 129 H 201 H Lactic Acid Calcium Ionized Calcium Phosphorus Magnesium Direct Bilirubin AST ALT Alkaline Phosphatase Lactate Dehydrogenase Troponin T C-Reactive Protein Total Protein Albumin Prealbumin Triglycerides Cholesterol LDL Cholesterol Direct HDL Cholesterol 25-OH Vitamin D Total PTH Intact Urine pH Urine WBC (Auto) Urine Creatinine Urine Total Protein Fluid Total Protein Vancomycin Trough Rheumatoid Factor Complement C4 Miscellaneous Test Crossmatch 02/15/17 02/15/17 02/15/17 19:08 19:08 19:08 WBC RBC Hgb Hct MCV MCH MCHC RDW Plt Count Lymph % (Auto) [place] % (Auto) Lymph # [place] # Baso # Seg Neutrophils % Seg Neuts % (Manual) Lymphocytes % (Manual) Monocytes % (Manual) Eosinophils % (Manual) Basophils % (Manual) Nucleated RBC % Seg Neutrophils # Seg Neutrophils # Man Lymphocytes # (Manual) Monocytes # (Manual) Eosinophils # (Manual) Basophils # (Manual) PT INR Fibrinogen dRVVT Confirm Interp Factor V Activity POC ABG pH POC ABG pCO2 POC ABG pO2 ABG pO2 ABG HCO3 ABG Base Excess ABG Hemoglobin Oxyhemoglobin Sodium Potassium Chloride Carbon Dioxide BUN Creatinine Glucose POC Glucose Lactic Acid Calcium Ionized Calcium 6.0 H Phosphorus Magnesium Direct Bilirubin AST ALT Alkaline Phosphatase Lactate Dehydrogenase Troponin T C-Reactive Protein Total Protein Albumin Prealbumin Triglycerides Cholesterol LDL Cholesterol Direct HDL Cholesterol 25-OH Vitamin D Total 13 L PTH Intact 10.88 L Urine pH Urine WBC (Auto) Urine Creatinine Urine Total Protein Fluid Total Protein Vancomycin Trough Rheumatoid Factor Complement C4 Miscellaneous Test Crossmatch 02/16/17 02/16/17 02/16/17 05:12 06:00 12:39 WBC RBC Hgb Hct MCV MCH MCHC RDW Plt Count Lymph % (Auto) [place] % (Auto) Lymph # [place] # Baso # Seg Neutrophils % Seg Neuts % (Manual) Lymphocytes % (Manual) Monocytes % (Manual) Eosinophils % (Manual) Basophils % (Manual) Nucleated RBC % Seg Neutrophils # Seg Neutrophils # Man Lymphocytes # (Manual) Monocytes # (Manual) Eosinophils # (Manual) Basophils # (Manual) PT INR Fibrinogen dRVVT Confirm Interp Factor V Activity POC ABG pH POC ABG pCO2 POC ABG pO2 ABG pO2 ABG HCO3 ABG Base Excess ABG Hemoglobin Oxyhemoglobin Sodium Potassium Chloride Carbon Dioxide BUN 74 H Creatinine 1.7 H Glucose 102 H POC Glucose 125 H 109 H Lactic Acid Calcium Ionized Calcium Phosphorus 2.10 L D Magnesium Direct Bilirubin AST ALT Alkaline Phosphatase Lactate Dehydrogenase Troponin T C-Reactive Protein Total Protein Albumin Prealbumin Triglycerides Cholesterol LDL Cholesterol Direct HDL Cholesterol 25-OH Vitamin D Total PTH Intact Urine pH Urine WBC (Auto) Urine Creatinine Urine Total Protein Fluid Total Protein Vancomycin Trough Rheumatoid Factor Complement C4 Miscellaneous Test Crossmatch 02/16/17 02/16/17 02/17/17 17:31 23:57 05:30 WBC RBC Hgb Hct MCV MCH MCHC RDW Plt Count Lymph % (Auto) [place] % (Auto) Lymph # [place] # Baso # Seg Neutrophils % Seg Neuts % (Manual) Lymphocytes % (Manual) Monocytes % (Manual) Eosinophils % (Manual) Basophils % (Manual) Nucleated RBC % Seg Neutrophils # Seg Neutrophils # Man Lymphocytes # (Manual) Monocytes # (Manual) Eosinophils # (Manual) Basophils # (Manual) PT INR Fibrinogen dRVVT Confirm Interp Factor V Activity POC ABG pH POC ABG pCO2 POC ABG pO2 ABG pO2 ABG HCO3 ABG Base Excess ABG Hemoglobin Oxyhemoglobin Sodium Potassium Chloride Carbon Dioxide BUN Creatinine Glucose POC Glucose 106 H 127 H 122 H Lactic Acid Calcium Ionized Calcium Phosphorus Magnesium Direct Bilirubin AST ALT Alkaline Phosphatase Lactate Dehydrogenase Troponin T C-Reactive Protein Total Protein Albumin Prealbumin Triglycerides Cholesterol LDL Cholesterol Direct HDL Cholesterol 25-OH Vitamin D Total PTH Intact Urine pH Urine WBC (Auto) Urine Creatinine Urine Total Protein Fluid Total Protein Vancomycin Trough Rheumatoid Factor Complement C4 Miscellaneous Test Crossmatch 02/17/17 02/17/17 02/17/17 06:00 12:17 17:57 WBC RBC Hgb Hct MCV MCH MCHC RDW Plt Count Lymph % (Auto) [place] % (Auto) Lymph # [place] # Baso # Seg Neutrophils % Seg Neuts % (Manual) Lymphocytes % (Manual) Monocytes % (Manual) Eosinophils % (Manual) Basophils % (Manual) Nucleated RBC % Seg Neutrophils # Seg Neutrophils # Man Lymphocytes # (Manual) Monocytes # (Manual) Eosinophils # (Manual) Basophils # (Manual) PT INR Fibrinogen dRVVT Confirm Interp Factor V Activity POC ABG pH POC ABG pCO2 POC ABG pO2 ABG pO2 ABG HCO3 ABG Base Excess ABG Hemoglobin Oxyhemoglobin Sodium Potassium Chloride Carbon Dioxide BUN 94 H Creatinine 2.3 H Glucose 106 H POC Glucose 173 H 140 H Lactic Acid Calcium Ionized Calcium Phosphorus Magnesium Direct Bilirubin AST ALT Alkaline Phosphatase Lactate Dehydrogenase Troponin T C-Reactive Protein Total Protein Albumin Prealbumin Triglycerides Cholesterol LDL Cholesterol Direct HDL Cholesterol 25-OH Vitamin D Total PTH Intact Urine pH Urine WBC (Auto) Urine Creatinine Urine Total Protein Fluid Total Protein Vancomycin Trough Rheumatoid Factor Complement C4 Miscellaneous Test Crossmatch 02/18/17 02/18/17 02/18/17 00:20 05:30 06:14 WBC RBC Hgb Hct MCV MCH MCHC RDW Plt Count Lymph % (Auto) [place] % (Auto) Lymph # [place] # Baso # Seg Neutrophils % Seg Neuts % (Manual) Lymphocytes % (Manual) Monocytes % (Manual) Eosinophils % (Manual) Basophils % (Manual) Nucleated RBC % Seg Neutrophils # Seg Neutrophils # Man Lymphocytes # (Manual) Monocytes # (Manual) Eosinophils # (Manual) Basophils # (Manual) PT INR Fibrinogen dRVVT Confirm Interp Factor V Activity POC ABG pH POC ABG pCO2 POC ABG pO2 ABG pO2 ABG HCO3 ABG Base Excess ABG Hemoglobin Oxyhemoglobin Sodium 136 L Potassium Chloride 97.5 L Carbon Dioxide BUN 73 H Creatinine 1.9 H Glucose POC Glucose 132 H 106 H Lactic Acid Calcium Ionized Calcium Phosphorus Magnesium Direct Bilirubin AST ALT Alkaline Phosphatase Lactate Dehydrogenase Troponin T C-Reactive Protein Total Protein Albumin Prealbumin Triglycerides Cholesterol LDL Cholesterol Direct HDL Cholesterol 25-OH Vitamin D Total PTH Intact Urine pH Urine WBC (Auto) Urine Creatinine Urine Total Protein Fluid Total Protein Vancomycin Trough Rheumatoid Factor Complement C4 Miscellaneous Test Crossmatch 02/18/17 02/18/17 02/18/17 09:51 11:32 17:59 WBC 13.1 H RBC 2.77 L Hgb 7.6 L Hct 23.9 L MCV MCH MCHC RDW 19.0 H Plt Count Lymph % (Auto) [place] % (Auto) 11.1 H Lymph # [place] # 1.5 H Baso # Seg Neutrophils % Seg Neuts % (Manual) Lymphocytes % (Manual) Monocytes % (Manual) Eosinophils % (Manual) Basophils % (Manual) Nucleated RBC % Seg Neutrophils # 9.1 H Seg Neutrophils # Man Lymphocytes # (Manual) Monocytes # (Manual) Eosinophils # (Manual) Basophils # (Manual) PT INR Fibrinogen dRVVT Confirm Interp Factor V Activity POC ABG pH POC ABG pCO2 POC ABG pO2 ABG pO2 ABG HCO3 ABG Base Excess ABG Hemoglobin Oxyhemoglobin Sodium Potassium Chloride Carbon Dioxide BUN Creatinine Glucose POC Glucose 123 H 119 H Lactic Acid Calcium Ionized Calcium Phosphorus Magnesium Direct Bilirubin AST ALT Alkaline Phosphatase Lactate Dehydrogenase Troponin T C-Reactive Protein Total Protein Albumin Prealbumin Triglycerides Cholesterol LDL Cholesterol Direct HDL Cholesterol 25-OH Vitamin D Total PTH Intact Urine pH Urine WBC (Auto) Urine Creatinine Urine Total Protein Fluid Total Protein Vancomycin Trough Rheumatoid Factor Complement C4 Miscellaneous Test Crossmatch 02/18/17 02/19/17 02/19/17 23:47 05:36 09:45 WBC RBC Hgb Hct MCV MCH 27 L MCHC RDW 19.2 H Plt Count Lymph % (Auto) [place] % (Auto) Lymph # [place] # Baso # Seg Neutrophils % Seg Neuts % (Manual) Lymphocytes % (Manual) Monocytes % (Manual) Eosinophils % (Manual) Basophils % (Manual) Nucleated RBC % Seg Neutrophils # Seg Neutrophils # Man Lymphocytes # (Manual) Monocytes # (Manual) Eosinophils # (Manual) Basophils # (Manual) PT INR Fibrinogen dRVVT Confirm Interp Factor V Activity POC ABG pH POC ABG pCO2 POC ABG pO2 ABG pO2 ABG HCO3 ABG Base Excess ABG Hemoglobin Oxyhemoglobin Sodium Potassium Chloride Carbon Dioxide BUN Creatinine Glucose POC Glucose 110 H 121 H Lactic Acid Calcium Ionized Calcium Phosphorus Magnesium Direct Bilirubin AST ALT Alkaline Phosphatase Lactate Dehydrogenase Troponin T C-Reactive Protein Total Protein Albumin Prealbumin Triglycerides Cholesterol LDL Cholesterol Direct HDL Cholesterol 25-OH Vitamin D Total PTH Intact Urine pH Urine WBC (Auto) Urine Creatinine Urine Total Protein Fluid Total Protein Vancomycin Trough Rheumatoid Factor Complement C4 Miscellaneous Test Crossmatch 02/19/17 02/20/17 02/20/17 09:45 00:10 06:15 WBC RBC Hgb Hct MCV MCH MCHC RDW Plt Count Lymph % (Auto) [place] % (Auto) Lymph # [place] # Baso # Seg Neutrophils % Seg Neuts % (Manual) Lymphocytes % (Manual) Monocytes % (Manual) Eosinophils % (Manual) Basophils % (Manual) Nucleated RBC % Seg Neutrophils # Seg Neutrophils # Man Lymphocytes # (Manual) Monocytes # (Manual) Eosinophils # (Manual) Basophils # (Manual) PT INR Fibrinogen dRVVT Confirm Interp Factor V Activity POC ABG pH POC ABG pCO2 POC ABG pO2 ABG pO2 ABG HCO3 ABG Base Excess ABG Hemoglobin Oxyhemoglobin Sodium 136 L Potassium 5.1 H Chloride 97.6 L Carbon Dioxide 20 L 18 L BUN 110 H 135 H Creatinine 2.6 H 3.2 H Glucose 106 H 110 H POC Glucose 117 H Lactic Acid Calcium Ionized Calcium Phosphorus 4.70 H D 5.60 H Magnesium Direct Bilirubin AST ALT Alkaline Phosphatase Lactate Dehydrogenase Troponin T C-Reactive Protein Total Protein Albumin Prealbumin Triglycerides Cholesterol LDL Cholesterol Direct HDL Cholesterol 25-OH Vitamin D Total PTH Intact Urine pH Urine WBC (Auto) Urine Creatinine Urine Total Protein Fluid Total Protein Vancomycin Trough Rheumatoid Factor Complement C4 Miscellaneous Test Crossmatch 02/20/17 02/20/17 02/21/17 11:30 17:51 00:14 WBC RBC Hgb Hct MCV MCH MCHC RDW Plt Count Lymph % (Auto) [place] % (Auto) Lymph # [place] # Baso # Seg Neutrophils % Seg Neuts % (Manual) Lymphocytes % (Manual) Monocytes % (Manual) Eosinophils % (Manual) Basophils % (Manual) Nucleated RBC % Seg Neutrophils # Seg Neutrophils # Man Lymphocytes # (Manual) Monocytes # (Manual) Eosinophils # (Manual) Basophils # (Manual) PT INR Fibrinogen dRVVT Confirm Interp Factor V Activity POC ABG pH POC ABG pCO2 POC ABG pO2 ABG pO2 ABG HCO3 ABG Base Excess ABG Hemoglobin Oxyhemoglobin Sodium Potassium Chloride Carbon Dioxide BUN Creatinine Glucose POC Glucose 173 H 133 H 125 H Lactic Acid Calcium Ionized Calcium Phosphorus Magnesium Direct Bilirubin AST ALT Alkaline Phosphatase Lactate Dehydrogenase Troponin T C-Reactive Protein Total Protein Albumin Prealbumin Triglycerides Cholesterol LDL Cholesterol Direct HDL Cholesterol 25-OH Vitamin D Total PTH Intact Urine pH Urine WBC (Auto) Urine Creatinine Urine Total Protein Fluid Total Protein Vancomycin Trough Rheumatoid Factor Complement C4 Miscellaneous Test Crossmatch 02/21/17 02/21/17 02/21/17 04:09 05:03 11:58 WBC RBC Hgb Hct MCV MCH MCHC RDW Plt Count Lymph % (Auto) [place] % (Auto) Lymph # [place] # Baso # Seg Neutrophils % Seg Neuts % (Manual) Lymphocytes % (Manual) Monocytes % (Manual) Eosinophils % (Manual) Basophils % (Manual) Nucleated RBC % Seg Neutrophils # Seg Neutrophils # Man Lymphocytes # (Manual) Monocytes # (Manual) Eosinophils # (Manual) Basophils # (Manual) PT INR Fibrinogen dRVVT Confirm Interp Factor V Activity POC ABG pH POC ABG pCO2 POC ABG pO2 ABG pO2 ABG HCO3 ABG Base Excess ABG Hemoglobin Oxyhemoglobin Sodium 135 L Potassium Chloride Carbon Dioxide 20 L BUN 76 H Creatinine 2.0 H Glucose 125 H POC Glucose 134 H 139 H Lactic Acid Calcium Ionized Calcium Phosphorus Magnesium Direct Bilirubin AST ALT Alkaline Phosphatase Lactate Dehydrogenase Troponin T C-Reactive Protein Total Protein Albumin Prealbumin Triglycerides Cholesterol LDL Cholesterol Direct HDL Cholesterol 25-OH Vitamin D Total PTH Intact Urine pH Urine WBC (Auto) Urine Creatinine Urine Total Protein Fluid Total Protein Vancomycin Trough Rheumatoid Factor Complement C4 Miscellaneous Test Crossmatch 02/21/17 02/21/17 02/22/17 17:16 23:41 04:10 WBC RBC Hgb Hct MCV MCH MCHC RDW Plt Count Lymph % (Auto) [place] % (Auto) Lymph # [place] # Baso # Seg Neutrophils % Seg Neuts % (Manual) Lymphocytes % (Manual) Monocytes % (Manual) Eosinophils % (Manual) Basophils % (Manual) Nucleated RBC % Seg Neutrophils # Seg Neutrophils # Man Lymphocytes # (Manual) Monocytes # (Manual) Eosinophils # (Manual) Basophils # (Manual) PT INR Fibrinogen dRVVT Confirm Interp Factor V Activity POC ABG pH POC ABG pCO2 POC ABG pO2 ABG pO2 ABG HCO3 ABG Base Excess ABG Hemoglobin Oxyhemoglobin Sodium 135 L Potassium Chloride 97.7 L Carbon Dioxide 21 L BUN 101 H Creatinine 2.5 H Glucose 116 H POC Glucose 120 H 128 H Lactic Acid Calcium Ionized Calcium Phosphorus Magnesium Direct Bilirubin AST ALT Alkaline Phosphatase Lactate Dehydrogenase Troponin T C-Reactive Protein Total Protein Albumin 1.3 L Prealbumin Triglycerides Cholesterol LDL Cholesterol Direct HDL Cholesterol 25-OH Vitamin D Total PTH Intact Urine pH Urine WBC (Auto) Urine Creatinine Urine Total Protein Fluid Total Protein Vancomycin Trough Rheumatoid Factor Complement C4 Miscellaneous Test Crossmatch 02/22/17 02/22/17 02/22/17 06:03 11:38 18:19 WBC RBC Hgb Hct MCV MCH MCHC RDW Plt Count Lymph % (Auto) [place] % (Auto) Lymph # [place] # Baso # Seg Neutrophils % Seg Neuts % (Manual) Lymphocytes % (Manual) Monocytes % (Manual) Eosinophils % (Manual) Basophils % (Manual) Nucleated RBC % Seg Neutrophils # Seg Neutrophils # Man Lymphocytes # (Manual) Monocytes # (Manual) Eosinophils # (Manual) Basophils # (Manual) PT INR Fibrinogen dRVVT Confirm Interp Factor V Activity POC ABG pH POC ABG pCO2 POC ABG pO2 ABG pO2 ABG HCO3 ABG Base Excess ABG Hemoglobin Oxyhemoglobin Sodium Potassium Chloride Carbon Dioxide BUN Creatinine Glucose POC Glucose 126 H 147 H 121 H Lactic Acid Calcium Ionized Calcium Phosphorus Magnesium Direct Bilirubin AST ALT Alkaline Phosphatase Lactate Dehydrogenase Troponin T C-Reactive Protein Total Protein Albumin Prealbumin Triglycerides Cholesterol LDL Cholesterol Direct HDL Cholesterol 25-OH Vitamin D Total PTH Intact Urine pH Urine WBC (Auto) Urine Creatinine Urine Total Protein Fluid Total Protein Vancomycin Trough Rheumatoid Factor Complement C4 Miscellaneous Test Crossmatch 02/23/17 02/23/17 02/23/17 05:00 05:46 12:27 WBC RBC Hgb Hct MCV MCH MCHC RDW Plt Count Lymph % (Auto) [place] % (Auto) Lymph # [place] # Baso # Seg Neutrophils % Seg Neuts % (Manual) Lymphocytes % (Manual) Monocytes % (Manual) Eosinophils % (Manual) Basophils % (Manual) Nucleated RBC % Seg Neutrophils # Seg Neutrophils # Man Lymphocytes # (Manual) Monocytes # (Manual) Eosinophils # (Manual) Basophils # (Manual) PT INR Fibrinogen dRVVT Confirm Interp Factor V Activity POC ABG pH POC ABG pCO2 POC ABG pO2 ABG pO2 ABG HCO3 ABG Base Excess ABG Hemoglobin Oxyhemoglobin Sodium 136 L Potassium Chloride 97.1 L Carbon Dioxide BUN 50 H Creatinine 1.5 H Glucose POC Glucose 110 H 115 H Lactic Acid Calcium 8.1 L Ionized Calcium Phosphorus 1.90 L D Magnesium Direct Bilirubin AST ALT Alkaline Phosphatase Lactate Dehydrogenase Troponin T C-Reactive Protein Total Protein Albumin Prealbumin Triglycerides Cholesterol LDL Cholesterol Direct HDL Cholesterol 25-OH Vitamin D Total PTH Intact Urine pH Urine WBC (Auto) Urine Creatinine Urine Total Protein Fluid Total Protein Vancomycin Trough Rheumatoid Factor Complement C4 Miscellaneous Test Crossmatch 02/23/17 02/23/17 02/24/17 18:02 23:18 05:04 WBC RBC Hgb Hct MCV MCH MCHC RDW Plt Count Lymph % (Auto) [place] % (Auto) Lymph # [place] # Baso # Seg Neutrophils % Seg Neuts % (Manual) Lymphocytes % (Manual) Monocytes % (Manual) Eosinophils % (Manual) Basophils % (Manual) Nucleated RBC % Seg Neutrophils # Seg Neutrophils # Man Lymphocytes # (Manual) Monocytes # (Manual) Eosinophils # (Manual) Basophils # (Manual) PT INR Fibrinogen dRVVT Confirm Interp Factor V Activity POC ABG pH POC ABG pCO2 POC ABG pO2 ABG pO2 ABG HCO3 ABG Base Excess ABG Hemoglobin Oxyhemoglobin Sodium Potassium Chloride Carbon Dioxide BUN Creatinine Glucose POC Glucose 111 H 126 H 121 H Lactic Acid Calcium Ionized Calcium Phosphorus Magnesium Direct Bilirubin AST ALT Alkaline Phosphatase Lactate Dehydrogenase Troponin T C-Reactive Protein Total Protein Albumin Prealbumin Triglycerides Cholesterol LDL Cholesterol Direct HDL Cholesterol 25-OH Vitamin D Total PTH Intact Urine pH Urine WBC (Auto) Urine Creatinine Urine Total Protein Fluid Total Protein Vancomycin Trough Rheumatoid Factor Complement C4 Miscellaneous Test Crossmatch 02/24/17 02/24/17 02/24/17 05:20 10:05 11:34 WBC RBC 2.95 L Hgb 8.4 L Hct 25.7 L MCV MCH MCHC RDW 20.8 H Plt Count Lymph % (Auto) [place] % (Auto) Lymph # [place] # Baso # Seg Neutrophils % 71.8 H Seg Neuts % (Manual) Lymphocytes % (Manual) Monocytes % (Manual) Eosinophils % (Manual) Basophils % (Manual) Nucleated RBC % Seg Neutrophils # Seg Neutrophils # Man Lymphocytes # (Manual) Monocytes # (Manual) Eosinophils # (Manual) Basophils # (Manual) PT INR Fibrinogen dRVVT Confirm Interp Factor V Activity POC ABG pH POC ABG pCO2 POC ABG pO2 ABG pO2 ABG HCO3 ABG Base Excess ABG Hemoglobin Oxyhemoglobin Sodium 136 L Potassium Chloride 95.5 L Carbon Dioxide BUN 76 H Creatinine 2.2 H Glucose 109 H POC Glucose 123 H Lactic Acid Calcium Ionized Calcium Phosphorus Magnesium Direct Bilirubin AST ALT Alkaline Phosphatase Lactate Dehydrogenase Troponin T C-Reactive Protein Total Protein Albumin Prealbumin Triglycerides Cholesterol LDL Cholesterol Direct HDL Cholesterol 25-OH Vitamin D Total PTH Intact Urine pH Urine WBC (Auto) Urine Creatinine Urine Total Protein Fluid Total Protein Vancomycin Trough Rheumatoid Factor Complement C4 Miscellaneous Test Crossmatch 02/24/17 02/24/17 02/25/17 17:43 23:02 05:00 WBC RBC Hgb Hct MCV MCH MCHC RDW Plt Count Lymph % (Auto) [place] % (Auto) Lymph # [place] # Baso # Seg Neutrophils % Seg Neuts % (Manual) Lymphocytes % (Manual) Monocytes % (Manual) Eosinophils % (Manual) Basophils % (Manual) Nucleated RBC % Seg Neutrophils # Seg Neutrophils # Man Lymphocytes # (Manual) Monocytes # (Manual) Eosinophils # (Manual) Basophils # (Manual) PT INR Fibrinogen dRVVT Confirm Interp Factor V Activity POC ABG pH POC ABG pCO2 POC ABG pO2 ABG pO2 ABG HCO3 ABG Base Excess ABG Hemoglobin Oxyhemoglobin Sodium Potassium Chloride 96.8 L Carbon Dioxide BUN 94 H Creatinine 2.8 H Glucose 118 H POC Glucose 128 H 144 H Lactic Acid Calcium Ionized Calcium Phosphorus Magnesium Direct Bilirubin AST ALT Alkaline Phosphatase Lactate Dehydrogenase Troponin T C-Reactive Protein Total Protein Albumin Prealbumin Triglycerides Cholesterol LDL Cholesterol Direct HDL Cholesterol 25-OH Vitamin D Total PTH Intact Urine pH Urine WBC (Auto) Urine Creatinine Urine Total Protein Fluid Total Protein Vancomycin Trough Rheumatoid Factor Complement C4 Miscellaneous Test Crossmatch 02/25/17 02/25/17 02/25/17 05:32 11:44 18:18 WBC RBC Hgb Hct MCV MCH MCHC RDW Plt Count Lymph % (Auto) [place] % (Auto) Lymph # [place] # Baso # Seg Neutrophils % Seg Neuts % (Manual) Lymphocytes % (Manual) Monocytes % (Manual) Eosinophils % (Manual) Basophils % (Manual) Nucleated RBC % Seg Neutrophils # Seg Neutrophils # Man Lymphocytes # (Manual) Monocytes # (Manual) Eosinophils # (Manual) Basophils # (Manual) PT INR Fibrinogen dRVVT Confirm Interp Factor V Activity POC ABG pH POC ABG pCO2 POC ABG pO2 ABG pO2 ABG HCO3 ABG Base Excess ABG Hemoglobin Oxyhemoglobin Sodium Potassium Chloride Carbon Dioxide BUN Creatinine Glucose POC Glucose 118 H 106 H 210 H Lactic Acid Calcium Ionized Calcium Phosphorus Magnesium Direct Bilirubin AST ALT Alkaline Phosphatase Lactate Dehydrogenase Troponin T C-Reactive Protein Total Protein Albumin Prealbumin Triglycerides Cholesterol LDL Cholesterol Direct HDL Cholesterol 25-OH Vitamin D Total PTH Intact Urine pH Urine WBC (Auto) Urine Creatinine Urine Total Protein Fluid Total Protein Vancomycin Trough Rheumatoid Factor Complement C4 Miscellaneous Test Crossmatch 02/26/17 02/26/17 02/26/17 00:07 05:14 12:07 WBC RBC Hgb Hct MCV MCH MCHC RDW Plt Count Lymph % (Auto) [place] % (Auto) Lymph # [place] # Baso # Seg Neutrophils % Seg Neuts % (Manual) Lymphocytes % (Manual) Monocytes % (Manual) Eosinophils % (Manual) Basophils % (Manual) Nucleated RBC % Seg Neutrophils # Seg Neutrophils # Man Lymphocytes # (Manual) Monocytes # (Manual) Eosinophils # (Manual) Basophils # (Manual) PT INR Fibrinogen dRVVT Confirm Interp Factor V Activity POC ABG pH POC ABG pCO2 POC ABG pO2 ABG pO2 ABG HCO3 ABG Base Excess ABG Hemoglobin Oxyhemoglobin Sodium Potassium Chloride Carbon Dioxide BUN Creatinine Glucose POC Glucose 136 H 142 H 132 H Lactic Acid Calcium Ionized Calcium Phosphorus Magnesium Direct Bilirubin AST ALT Alkaline Phosphatase Lactate Dehydrogenase Troponin T C-Reactive Protein Total Protein Albumin Prealbumin Triglycerides Cholesterol LDL Cholesterol Direct HDL Cholesterol 25-OH Vitamin D Total PTH Intact Urine pH Urine WBC (Auto) Urine Creatinine Urine Total Protein Fluid Total Protein Vancomycin Trough Rheumatoid Factor Complement C4 Miscellaneous Test Crossmatch 02/26/17 02/26/17 02/27/17 18:35 23:54 06:25 WBC RBC Hgb Hct MCV MCH MCHC RDW Plt Count Lymph % (Auto) [place] % (Auto) Lymph # [place] # Baso # Seg Neutrophils % Seg Neuts % (Manual) Lymphocytes % (Manual) Monocytes % (Manual) Eosinophils % (Manual) Basophils % (Manual) Nucleated RBC % Seg Neutrophils # Seg Neutrophils # Man Lymphocytes # (Manual) Monocytes # (Manual) Eosinophils # (Manual) Basophils # (Manual) PT INR Fibrinogen dRVVT Confirm Interp Factor V Activity POC ABG pH POC ABG pCO2 POC ABG pO2 ABG pO2 ABG HCO3 ABG Base Excess ABG Hemoglobin Oxyhemoglobin Sodium Potassium Chloride Carbon Dioxide BUN Creatinine Glucose POC Glucose 155 H 150 H 138 H Lactic Acid Calcium Ionized Calcium Phosphorus Magnesium Direct Bilirubin AST ALT Alkaline Phosphatase Lactate Dehydrogenase Troponin T C-Reactive Protein Total Protein Albumin Prealbumin Triglycerides Cholesterol LDL Cholesterol Direct HDL Cholesterol 25-OH Vitamin D Total PTH Intact Urine pH Urine WBC (Auto) Urine Creatinine Urine Total Protein Fluid Total Protein Vancomycin Trough Rheumatoid Factor Complement C4 Miscellaneous Test Crossmatch 02/27/17 02/27/17 02/27/17 08:50 11:50 17:38 WBC RBC Hgb Hct MCV MCH MCHC RDW Plt Count Lymph % (Auto) [place] % (Auto) Lymph # [place] # Baso # Seg Neutrophils % Seg Neuts % (Manual) Lymphocytes % (Manual) Monocytes % (Manual) Eosinophils % (Manual) Basophils % (Manual) Nucleated RBC % Seg Neutrophils # Seg Neutrophils # Man Lymphocytes # (Manual) Monocytes # (Manual) Eosinophils # (Manual) Basophils # (Manual) PT INR Fibrinogen dRVVT Confirm Interp Factor V Activity POC ABG pH POC ABG pCO2 POC ABG pO2 ABG pO2 ABG HCO3 ABG Base Excess ABG Hemoglobin Oxyhemoglobin Sodium Potassium 3.2 L Chloride Carbon Dioxide BUN 95 H Creatinine 2.7 H Glucose 179 H POC Glucose 150 H 133 H Lactic Acid Calcium Ionized Calcium Phosphorus Magnesium Direct Bilirubin AST ALT Alkaline Phosphatase Lactate Dehydrogenase Troponin T C-Reactive Protein Total Protein Albumin Prealbumin Triglycerides Cholesterol LDL Cholesterol Direct HDL Cholesterol 25-OH Vitamin D Total PTH Intact Urine pH Urine WBC (Auto) Urine Creatinine Urine Total Protein Fluid Total Protein Vancomycin Trough Rheumatoid Factor Complement C4 Miscellaneous Test Crossmatch 02/27/17 02/28/17 02/28/17 23:55 05:23 06:10 WBC RBC Hgb Hct MCV MCH MCHC RDW Plt Count Lymph % (Auto) [place] % (Auto) Lymph # [place] # Baso # Seg Neutrophils % Seg Neuts % (Manual) Lymphocytes % (Manual) Monocytes % (Manual) Eosinophils % (Manual) Basophils % (Manual) Nucleated RBC % Seg Neutrophils # Seg Neutrophils # Man Lymphocytes # (Manual) Monocytes # (Manual) Eosinophils # (Manual) Basophils # (Manual) PT INR Fibrinogen dRVVT Confirm Interp Factor V Activity POC ABG pH POC ABG pCO2 POC ABG pO2 ABG pO2 ABG HCO3 ABG Base Excess ABG Hemoglobin Oxyhemoglobin Sodium 134 L Potassium 3.0 L Chloride 94.9 L Carbon Dioxide BUN 53 H Creatinine 1.9 H Glucose 138 H POC Glucose 134 H 164 H Lactic Acid Calcium Ionized Calcium Phosphorus 2.00 L D Magnesium Direct Bilirubin AST ALT Alkaline Phosphatase Lactate Dehydrogenase Troponin T C-Reactive Protein Total Protein Albumin Prealbumin Triglycerides Cholesterol LDL Cholesterol Direct HDL Cholesterol 25-OH Vitamin D Total PTH Intact Urine pH Urine WBC (Auto) Urine Creatinine Urine Total Protein Fluid Total Protein Vancomycin Trough Rheumatoid Factor Complement C4 Miscellaneous Test Crossmatch 02/28/17 02/28/17 02/28/17 12:18 17:54 23:47 WBC RBC Hgb Hct MCV MCH MCHC RDW Plt Count Lymph % (Auto) [place] % (Auto) Lymph # [place] # Baso # Seg Neutrophils % Seg Neuts % (Manual) Lymphocytes % (Manual) Monocytes % (Manual) Eosinophils % (Manual) Basophils % (Manual) Nucleated RBC % Seg Neutrophils # Seg Neutrophils # Man Lymphocytes # (Manual) Monocytes # (Manual) Eosinophils # (Manual) Basophils # (Manual) PT INR Fibrinogen dRVVT Confirm Interp Factor V Activity POC ABG pH POC ABG pCO2 POC ABG pO2 ABG pO2 ABG HCO3 ABG Base Excess ABG Hemoglobin Oxyhemoglobin Sodium Potassium Chloride Carbon Dioxide BUN Creatinine Glucose POC Glucose 135 H 140 H 144 H Lactic Acid Calcium Ionized Calcium Phosphorus Magnesium Direct Bilirubin AST ALT Alkaline Phosphatase Lactate Dehydrogenase Troponin T C-Reactive Protein Total Protein Albumin Prealbumin Triglycerides Cholesterol LDL Cholesterol Direct HDL Cholesterol 25-OH Vitamin D Total PTH Intact Urine pH Urine WBC (Auto) Urine Creatinine Urine Total Protein Fluid Total Protein Vancomycin Trough Rheumatoid Factor Complement C4 Miscellaneous Test Crossmatch 03/01/17 03/01/17 03/01/17 04:00 12:02 17:13 WBC RBC Hgb Hct MCV MCH MCHC RDW Plt Count Lymph % (Auto) [place] % (Auto) Lymph # [place] # Baso # Seg Neutrophils % Seg Neuts % (Manual) Lymphocytes % (Manual) Monocytes % (Manual) Eosinophils % (Manual) Basophils % (Manual) Nucleated RBC % Seg Neutrophils # Seg Neutrophils # Man Lymphocytes # (Manual) Monocytes # (Manual) Eosinophils # (Manual) Basophils # (Manual) PT INR Fibrinogen dRVVT Confirm Interp Factor V Activity POC ABG pH POC ABG pCO2 POC ABG pO2 ABG pO2 ABG HCO3 ABG Base Excess ABG Hemoglobin Oxyhemoglobin Sodium Potassium 3.0 L Chloride 97.0 L Carbon Dioxide BUN 81 H Creatinine 2.6 H Glucose 121 H POC Glucose 165 H 126 H Lactic Acid Calcium Ionized Calcium Phosphorus Magnesium Direct Bilirubin AST ALT Alkaline Phosphatase Lactate Dehydrogenase Troponin T C-Reactive Protein Total Protein Albumin Prealbumin Triglycerides Cholesterol LDL Cholesterol Direct HDL Cholesterol 25-OH Vitamin D Total PTH Intact Urine pH Urine WBC (Auto) Urine Creatinine Urine Total Protein Fluid Total Protein Vancomycin Trough Rheumatoid Factor Complement C4 Miscellaneous Test Crossmatch 03/02/17 03/02/17 03/02/17 00:10 03:05 05:20 WBC RBC Hgb Hct MCV MCH MCHC RDW Plt Count Lymph % (Auto) [place] % (Auto) Lymph # [place] # Baso # Seg Neutrophils % Seg Neuts % (Manual) Lymphocytes % (Manual) Monocytes % (Manual) Eosinophils % (Manual) Basophils % (Manual) Nucleated RBC % Seg Neutrophils # Seg Neutrophils # Man Lymphocytes # (Manual) Monocytes # (Manual) Eosinophils # (Manual) Basophils # (Manual) PT INR Fibrinogen dRVVT Confirm Interp Factor V Activity POC ABG pH POC ABG pCO2 POC ABG pO2 ABG pO2 ABG HCO3 ABG Base Excess ABG Hemoglobin Oxyhemoglobin Sodium Potassium 3.0 L Chloride Carbon Dioxide BUN 41 H Creatinine 1.6 H Glucose 130 H POC Glucose 129 H 173 H Lactic Acid Calcium Ionized Calcium Phosphorus 1.70 L D Magnesium 1.40 L Direct Bilirubin AST ALT Alkaline Phosphatase Lactate Dehydrogenase Troponin T C-Reactive Protein Total Protein Albumin Prealbumin Triglycerides Cholesterol LDL Cholesterol Direct HDL Cholesterol 25-OH Vitamin D Total PTH Intact Urine pH Urine WBC (Auto) Urine Creatinine Urine Total Protein Fluid Total Protein Vancomycin Trough Rheumatoid Factor Complement C4 Miscellaneous Test Crossmatch 03/02/17 03/02/17 03/02/17 11:49 16:38 23:46 WBC RBC Hgb Hct MCV MCH MCHC RDW Plt Count Lymph % (Auto) [place] % (Auto) Lymph # [place] # Baso # Seg Neutrophils % Seg Neuts % (Manual) Lymphocytes % (Manual) Monocytes % (Manual) Eosinophils % (Manual) Basophils % (Manual) Nucleated RBC % Seg Neutrophils # Seg Neutrophils # Man Lymphocytes # (Manual) Monocytes # (Manual) Eosinophils # (Manual) Basophils # (Manual) PT INR Fibrinogen dRVVT Confirm Interp Factor V Activity POC ABG pH POC ABG pCO2 POC ABG pO2 ABG pO2 ABG HCO3 ABG Base Excess ABG Hemoglobin Oxyhemoglobin Sodium Potassium Chloride Carbon Dioxide BUN Creatinine Glucose POC Glucose 129 H 141 H 119 H Lactic Acid Calcium Ionized Calcium Phosphorus Magnesium Direct Bilirubin AST ALT Alkaline Phosphatase Lactate Dehydrogenase Troponin T C-Reactive Protein Total Protein Albumin Prealbumin Triglycerides Cholesterol LDL Cholesterol Direct HDL Cholesterol 25-OH Vitamin D Total PTH Intact Urine pH Urine WBC (Auto) Urine Creatinine Urine Total Protein Fluid Total Protein Vancomycin Trough Rheumatoid Factor Complement C4 Miscellaneous Test Crossmatch 03/03/17 03/03/17 03/03/17 04:00 11:59 18:08 WBC RBC Hgb Hct MCV MCH MCHC RDW Plt Count Lymph % (Auto) [place] % (Auto) Lymph # [place] # Baso # Seg Neutrophils % Seg Neuts % (Manual) Lymphocytes % (Manual) Monocytes % (Manual) Eosinophils % (Manual) Basophils % (Manual) Nucleated RBC % Seg Neutrophils # Seg Neutrophils # Man Lymphocytes # (Manual) Monocytes # (Manual) Eosinophils # (Manual) Basophils # (Manual) PT INR Fibrinogen dRVVT Confirm Interp Factor V Activity POC ABG pH POC ABG pCO2 POC ABG pO2 ABG pO2 ABG HCO3 ABG Base Excess ABG Hemoglobin Oxyhemoglobin Sodium Potassium Chloride Carbon Dioxide BUN 70 H Creatinine 2.3 H Glucose POC Glucose 125 H 131 H Lactic Acid Calcium Ionized Calcium Phosphorus Magnesium Direct Bilirubin AST ALT Alkaline Phosphatase Lactate Dehydrogenase Troponin T C-Reactive Protein Total Protein Albumin Prealbumin Triglycerides Cholesterol LDL Cholesterol Direct HDL Cholesterol 25-OH Vitamin D Total PTH Intact Urine pH Urine WBC (Auto) Urine Creatinine Urine Total Protein Fluid Total Protein Vancomycin Trough Rheumatoid Factor Complement C4 Miscellaneous Test Crossmatch 03/03/17 03/03/17 03/04/17 20:17 23:43 05:21 WBC RBC Hgb Hct MCV MCH MCHC RDW Plt Count Lymph % (Auto) [place] % (Auto) Lymph # [place] # Baso # Seg Neutrophils % Seg Neuts % (Manual) Lymphocytes % (Manual) Monocytes % (Manual) Eosinophils % (Manual) Basophils % (Manual) Nucleated RBC % Seg Neutrophils # Seg Neutrophils # Man Lymphocytes # (Manual) Monocytes # (Manual) Eosinophils # (Manual) Basophils # (Manual) PT INR Fibrinogen dRVVT Confirm Interp Factor V Activity POC ABG pH 7.518 H POC ABG pCO2 28.8 L POC ABG pO2 61 L ABG pO2 ABG HCO3 ABG Base Excess ABG Hemoglobin Oxyhemoglobin Sodium Potassium Chloride Carbon Dioxide BUN Creatinine Glucose POC Glucose 122 H 130 H Lactic Acid Calcium Ionized Calcium Phosphorus Magnesium Direct Bilirubin AST ALT Alkaline Phosphatase Lactate Dehydrogenase Troponin T C-Reactive Protein Total Protein Albumin Prealbumin Triglycerides Cholesterol LDL Cholesterol Direct HDL Cholesterol 25-OH Vitamin D Total PTH Intact Urine pH Urine WBC (Auto) Urine Creatinine Urine Total Protein Fluid Total Protein Vancomycin Trough Rheumatoid Factor Complement C4 Miscellaneous Test Crossmatch 03/04/17 03/05/17 03/06/17 06:10 06:15 03:52 WBC RBC Hgb Hct MCV MCH MCHC RDW Plt Count Lymph % (Auto) [place] % (Auto) Lymph # [place] # Baso # Seg Neutrophils % Seg Neuts % (Manual) Lymphocytes % (Manual) Monocytes % (Manual) Eosinophils % (Manual) Basophils % (Manual) Nucleated RBC % Seg Neutrophils # Seg Neutrophils # Man Lymphocytes # (Manual) Monocytes # (Manual) Eosinophils # (Manual) Basophils # (Manual) PT INR Fibrinogen dRVVT Confirm Interp Factor V Activity POC ABG pH POC ABG pCO2 POC ABG pO2 ABG pO2 ABG HCO3 ABG Base Excess ABG Hemoglobin Oxyhemoglobin Sodium 135 L 136 L Potassium 5.2 H 5.9 H Chloride 95.8 L 97.7 L 96.0 L Carbon Dioxide 21 L 21 L BUN 40 H 56 H 70 H Creatinine 1.7 H 2.4 H 3.0 H Glucose 118 H POC Glucose Lactic Acid Calcium Ionized Calcium Phosphorus 4.80 H D 6.00 H D Magnesium 2.60 H Direct Bilirubin AST ALT Alkaline Phosphatase 165 H Lactate Dehydrogenase Troponin T C-Reactive Protein Total Protein Albumin 1.5 L Prealbumin Triglycerides Cholesterol LDL Cholesterol Direct HDL Cholesterol 25-OH Vitamin D Total PTH Intact Urine pH Urine WBC (Auto) Urine Creatinine Urine Total Protein Fluid Total Protein Vancomycin Trough Rheumatoid Factor Complement C4 Miscellaneous Test Crossmatch 03/06/17 03/06/17 03/06/17 11:19 18:40 23:39 WBC RBC Hgb Hct MCV MCH MCHC RDW Plt Count Lymph % (Auto) [place] % (Auto) Lymph # [place] # Baso # Seg Neutrophils % Seg Neuts % (Manual) Lymphocytes % (Manual) Monocytes % (Manual) Eosinophils % (Manual) Basophils % (Manual) Nucleated RBC % Seg Neutrophils # Seg Neutrophils # Man Lymphocytes # (Manual) Monocytes # (Manual) Eosinophils # (Manual) Basophils # (Manual) PT INR Fibrinogen dRVVT Confirm Interp Factor V Activity POC ABG pH POC ABG pCO2 POC ABG pO2 ABG pO2 ABG HCO3 ABG Base Excess ABG Hemoglobin Oxyhemoglobin Sodium Potassium Chloride Carbon Dioxide BUN Creatinine Glucose POC Glucose 108 H 110 H 156 H Lactic Acid Calcium Ionized Calcium Phosphorus Magnesium Direct Bilirubin AST ALT Alkaline Phosphatase Lactate Dehydrogenase Troponin T C-Reactive Protein Total Protein Albumin Prealbumin Triglycerides Cholesterol LDL Cholesterol Direct HDL Cholesterol 25-OH Vitamin D Total PTH Intact Urine pH Urine WBC (Auto) Urine Creatinine Urine Total Protein Fluid Total Protein Vancomycin Trough Rheumatoid Factor Complement C4 Miscellaneous Test Crossmatch 03/07/17 03/07/17 03/07/17 06:04 11:56 23:31 WBC RBC Hgb Hct MCV MCH MCHC RDW Plt Count Lymph % (Auto) [place] % (Auto) Lymph # [place] # Baso # Seg Neutrophils % Seg Neuts % (Manual) Lymphocytes % (Manual) Monocytes % (Manual) Eosinophils % (Manual) Basophils % (Manual) Nucleated RBC % Seg Neutrophils # Seg Neutrophils # Man Lymphocytes # (Manual) Monocytes # (Manual) Eosinophils # (Manual) Basophils # (Manual) PT INR Fibrinogen dRVVT Confirm Interp Factor V Activity POC ABG pH POC ABG pCO2 POC ABG pO2 ABG pO2 ABG HCO3 ABG Base Excess ABG Hemoglobin Oxyhemoglobin Sodium Potassium Chloride 97.5 L Carbon Dioxide BUN 28 H Creatinine 1.5 H Glucose POC Glucose 106 H 131 H Lactic Acid Calcium 7.9 L Ionized Calcium Phosphorus Magnesium Direct Bilirubin AST ALT Alkaline Phosphatase Lactate Dehydrogenase Troponin T C-Reactive Protein Total Protein Albumin Prealbumin Triglycerides Cholesterol LDL Cholesterol Direct HDL Cholesterol 25-OH Vitamin D Total PTH Intact Urine pH Urine WBC (Auto) Urine Creatinine Urine Total Protein Fluid Total Protein Vancomycin Trough Rheumatoid Factor Complement C4 Miscellaneous Test Crossmatch 03/08/17 03/08/17 03/08/17 05:15 05:38 11:50 WBC RBC Hgb Hct MCV MCH MCHC RDW Plt Count Lymph % (Auto) [place] % (Auto) Lymph # [place] # Baso # Seg Neutrophils % Seg Neuts % (Manual) Lymphocytes % (Manual) Monocytes % (Manual) Eosinophils % (Manual) Basophils % (Manual) Nucleated RBC % Seg Neutrophils # Seg Neutrophils # Man Lymphocytes # (Manual) Monocytes # (Manual) Eosinophils # (Manual) Basophils # (Manual) PT INR Fibrinogen dRVVT Confirm Interp Factor V Activity POC ABG pH POC ABG pCO2 POC ABG pO2 ABG pO2 ABG HCO3 ABG Base Excess ABG Hemoglobin Oxyhemoglobin Sodium 135 L Potassium Chloride 96.6 L Carbon Dioxide 20 L BUN 46 H Creatinine 2.3 H D Glucose 117 H POC Glucose 156 H 131 H Lactic Acid Calcium Ionized Calcium Phosphorus Magnesium Direct Bilirubin AST ALT Alkaline Phosphatase Lactate Dehydrogenase Troponin T C-Reactive Protein Total Protein Albumin Prealbumin Triglycerides Cholesterol LDL Cholesterol Direct HDL Cholesterol 25-OH Vitamin D Total PTH Intact Urine pH Urine WBC (Auto) Urine Creatinine Urine Total Protein Fluid Total Protein Vancomycin Trough Rheumatoid Factor Complement C4 Miscellaneous Test Crossmatch 03/08/17 03/09/17 03/09/17 23:34 04:42 05:20 WBC RBC Hgb Hct MCV MCH MCHC RDW Plt Count Lymph % (Auto) [place] % (Auto) Lymph # [place] # Baso # Seg Neutrophils % Seg Neuts % (Manual) Lymphocytes % (Manual) Monocytes % (Manual) Eosinophils % (Manual) Basophils % (Manual) Nucleated RBC % Seg Neutrophils # Seg Neutrophils # Man Lymphocytes # (Manual) Monocytes # (Manual) Eosinophils # (Manual) Basophils # (Manual) PT INR Fibrinogen dRVVT Confirm Interp Factor V Activity POC ABG pH POC ABG pCO2 POC ABG pO2 ABG pO2 ABG HCO3 ABG Base Excess ABG Hemoglobin Oxyhemoglobin Sodium Potassium 3.2 L Chloride Carbon Dioxide BUN 30 H Creatinine 1.7 H Glucose 112 H POC Glucose 125 H 128 H Lactic Acid Calcium 8.2 L Ionized Calcium Phosphorus 1.80 L D Magnesium 1.40 L Direct Bilirubin AST ALT Alkaline Phosphatase Lactate Dehydrogenase Troponin T C-Reactive Protein Total Protein Albumin Prealbumin Triglycerides Cholesterol LDL Cholesterol Direct HDL Cholesterol 25-OH Vitamin D Total PTH Intact Urine pH Urine WBC (Auto) Urine Creatinine Urine Total Protein Fluid Total Protein Vancomycin Trough Rheumatoid Factor Complement C4 Miscellaneous Test Crossmatch 03/09/17 03/09/17 03/10/17 11:48 17:38 00:08 WBC RBC Hgb Hct MCV MCH MCHC RDW Plt Count Lymph % (Auto) [place] % (Auto) Lymph # [place] # Baso # Seg Neutrophils % Seg Neuts % (Manual) Lymphocytes % (Manual) Monocytes % (Manual) Eosinophils % (Manual) Basophils % (Manual) Nucleated RBC % Seg Neutrophils # Seg Neutrophils # Man Lymphocytes # (Manual) Monocytes # (Manual) Eosinophils # (Manual) Basophils # (Manual) PT INR Fibrinogen dRVVT Confirm Interp Factor V Activity POC ABG pH POC ABG pCO2 POC ABG pO2 ABG pO2 ABG HCO3 ABG Base Excess ABG Hemoglobin Oxyhemoglobin Sodium Potassium Chloride Carbon Dioxide BUN Creatinine Glucose POC Glucose 146 H 140 H 137 H Lactic Acid Calcium Ionized Calcium Phosphorus Magnesium Direct Bilirubin AST ALT Alkaline Phosphatase Lactate Dehydrogenase Troponin T C-Reactive Protein Total Protein Albumin Prealbumin Triglycerides Cholesterol LDL Cholesterol Direct HDL Cholesterol 25-OH Vitamin D Total PTH Intact Urine pH Urine WBC (Auto) Urine Creatinine Urine Total Protein Fluid Total Protein Vancomycin Trough Rheumatoid Factor Complement C4 Miscellaneous Test Crossmatch 03/10/17 03/10/17 03/10/17 04:46 06:37 11:22 WBC RBC Hgb Hct MCV MCH MCHC RDW Plt Count Lymph % (Auto) [place] % (Auto) Lymph # [place] # Baso # Seg Neutrophils % Seg Neuts % (Manual) Lymphocytes % (Manual) Monocytes % (Manual) Eosinophils % (Manual) Basophils % (Manual) Nucleated RBC % Seg Neutrophils # Seg Neutrophils # Man Lymphocytes # (Manual) Monocytes # (Manual) Eosinophils # (Manual) Basophils # (Manual) PT INR Fibrinogen dRVVT Confirm Interp Factor V Activity POC ABG pH POC ABG pCO2 POC ABG pO2 ABG pO2 ABG HCO3 ABG Base Excess ABG Hemoglobin Oxyhemoglobin Sodium 135 L Potassium Chloride 96.3 L Carbon Dioxide 21 L BUN 46 H Creatinine 2.2 H Glucose 106 H POC Glucose 115 H 151 H Lactic Acid Calcium 8.2 L Ionized Calcium Phosphorus Magnesium Direct Bilirubin AST ALT Alkaline Phosphatase Lactate Dehydrogenase Troponin T C-Reactive Protein Total Protein Albumin Prealbumin Triglycerides Cholesterol LDL Cholesterol Direct HDL Cholesterol 25-OH Vitamin D Total PTH Intact Urine pH Urine WBC (Auto) Urine Creatinine Urine Total Protein Fluid Total Protein Vancomycin Trough Rheumatoid Factor Complement C4 Miscellaneous Test Crossmatch 03/10/17 03/10/17 03/11/17 17:53 23:46 05:19 WBC RBC Hgb Hct MCV MCH MCHC RDW Plt Count Lymph % (Auto) [place] % (Auto) Lymph # [place] # Baso # Seg Neutrophils % Seg Neuts % (Manual) Lymphocytes % (Manual) Monocytes % (Manual) Eosinophils % (Manual) Basophils % (Manual) Nucleated RBC % Seg Neutrophils # Seg Neutrophils # Man Lymphocytes # (Manual) Monocytes # (Manual) Eosinophils # (Manual) Basophils # (Manual) PT INR Fibrinogen dRVVT Confirm Interp Factor V Activity POC ABG pH POC ABG pCO2 POC ABG pO2 ABG pO2 ABG HCO3 ABG Base Excess ABG Hemoglobin Oxyhemoglobin Sodium Potassium Chloride Carbon Dioxide BUN Creatinine Glucose POC Glucose 137 H 131 H 108 H Lactic Acid Calcium Ionized Calcium Phosphorus Magnesium Direct Bilirubin AST ALT Alkaline Phosphatase Lactate Dehydrogenase Troponin T C-Reactive Protein Total Protein Albumin Prealbumin Triglycerides Cholesterol LDL Cholesterol Direct HDL Cholesterol 25-OH Vitamin D Total PTH Intact Urine pH Urine WBC (Auto) Urine Creatinine Urine Total Protein Fluid Total Protein Vancomycin Trough Rheumatoid Factor Complement C4 Miscellaneous Test Crossmatch 03/11/17 03/11/17 03/11/17 11:37 18:13 23:55 WBC RBC Hgb Hct MCV MCH MCHC RDW Plt Count Lymph % (Auto) [place] % (Auto) Lymph # [place] # Baso # Seg Neutrophils % Seg Neuts % (Manual) Lymphocytes % (Manual) Monocytes % (Manual) Eosinophils % (Manual) Basophils % (Manual) Nucleated RBC % Seg Neutrophils # Seg Neutrophils # Man Lymphocytes # (Manual) Monocytes # (Manual) Eosinophils # (Manual) Basophils # (Manual) PT INR Fibrinogen dRVVT Confirm Interp Factor V Activity POC ABG pH POC ABG pCO2 POC ABG pO2 ABG pO2 ABG HCO3 ABG Base Excess ABG Hemoglobin Oxyhemoglobin Sodium Potassium Chloride Carbon Dioxide BUN Creatinine Glucose POC Glucose 113 H 126 H 134 H Lactic Acid Calcium Ionized Calcium Phosphorus Magnesium Direct Bilirubin AST ALT Alkaline Phosphatase Lactate Dehydrogenase Troponin T C-Reactive Protein Total Protein Albumin Prealbumin Triglycerides Cholesterol LDL Cholesterol Direct HDL Cholesterol 25-OH Vitamin D Total PTH Intact Urine pH Urine WBC (Auto) Urine Creatinine Urine Total Protein Fluid Total Protein Vancomycin Trough Rheumatoid Factor Complement C4 Miscellaneous Test Crossmatch 03/12/17 03/12/17 03/12/17 05:06 11:30 17:39 WBC RBC Hgb Hct MCV MCH MCHC RDW Plt Count Lymph % (Auto) [place] % (Auto) Lymph # [place] # Baso # Seg Neutrophils % Seg Neuts % (Manual) Lymphocytes % (Manual) Monocytes % (Manual) Eosinophils % (Manual) Basophils % (Manual) Nucleated RBC % Seg Neutrophils # Seg Neutrophils # Man Lymphocytes # (Manual) Monocytes # (Manual) Eosinophils # (Manual) Basophils # (Manual) PT INR Fibrinogen dRVVT Confirm Interp Factor V Activity POC ABG pH POC ABG pCO2 POC ABG pO2 ABG pO2 ABG HCO3 ABG Base Excess ABG Hemoglobin Oxyhemoglobin Sodium Potassium Chloride Carbon Dioxide BUN Creatinine Glucose POC Glucose 127 H 144 H 151 H Lactic Acid Calcium Ionized Calcium Phosphorus Magnesium Direct Bilirubin AST ALT Alkaline Phosphatase Lactate Dehydrogenase Troponin T C-Reactive Protein Total Protein Albumin Prealbumin Triglycerides Cholesterol LDL Cholesterol Direct HDL Cholesterol 25-OH Vitamin D Total PTH Intact Urine pH Urine WBC (Auto) Urine Creatinine Urine Total Protein Fluid Total Protein Vancomycin Trough Rheumatoid Factor Complement C4 Miscellaneous Test Crossmatch 03/13/17 03/13/17 03/13/17 05:01 05:39 11:29 WBC RBC Hgb Hct MCV MCH MCHC RDW Plt Count Lymph % (Auto) [place] % (Auto) Lymph # [place] # Baso # Seg Neutrophils % Seg Neuts % (Manual) Lymphocytes % (Manual) Monocytes % (Manual) Eosinophils % (Manual) Basophils % (Manual) Nucleated RBC % Seg Neutrophils # Seg Neutrophils # Man Lymphocytes # (Manual) Monocytes # (Manual) Eosinophils # (Manual) Basophils # (Manual) PT INR Fibrinogen dRVVT Confirm Interp Factor V Activity POC ABG pH POC ABG pCO2 POC ABG pO2 ABG pO2 ABG HCO3 ABG Base Excess ABG Hemoglobin Oxyhemoglobin Sodium 136 L Potassium 3.4 L Chloride 94.6 L Carbon Dioxide BUN 68 H Creatinine 2.9 H Glucose 105 H POC Glucose 123 H 128 H Lactic Acid Calcium Ionized Calcium Phosphorus Magnesium Direct Bilirubin AST ALT Alkaline Phosphatase Lactate Dehydrogenase Troponin T C-Reactive Protein Total Protein Albumin Prealbumin Triglycerides Cholesterol LDL Cholesterol Direct HDL Cholesterol 25-OH Vitamin D Total PTH Intact Urine pH Urine WBC (Auto) Urine Creatinine Urine Total Protein Fluid Total Protein Vancomycin Trough Rheumatoid Factor Complement C4 Miscellaneous Test Crossmatch 03/13/17 03/13/17 03/14/17 17:39 21:53 03:30 WBC RBC Hgb Hct MCV MCH MCHC RDW Plt Count Lymph % (Auto) [place] % (Auto) Lymph # [place] # Baso # Seg Neutrophils % Seg Neuts % (Manual) Lymphocytes % (Manual) Monocytes % (Manual) Eosinophils % (Manual) Basophils % (Manual) Nucleated RBC % Seg Neutrophils # Seg Neutrophils # Man Lymphocytes # (Manual) Monocytes # (Manual) Eosinophils # (Manual) Basophils # (Manual) PT INR Fibrinogen dRVVT Confirm Interp Factor V Activity POC ABG pH POC ABG pCO2 POC ABG pO2 ABG pO2 ABG HCO3 ABG Base Excess ABG Hemoglobin Oxyhemoglobin Sodium 133 L Potassium Chloride 95.7 L Carbon Dioxide 21 L BUN 37 H Creatinine 1.8 H Glucose 138 H POC Glucose 160 H 147 H Lactic Acid Calcium 8.1 L Ionized Calcium Phosphorus 2.10 L D Magnesium 1.60 L Direct Bilirubin AST ALT Alkaline Phosphatase Lactate Dehydrogenase Troponin T C-Reactive Protein Total Protein Albumin Prealbumin Triglycerides Cholesterol LDL Cholesterol Direct HDL Cholesterol 25-OH Vitamin D Total PTH Intact Urine pH Urine WBC (Auto) Urine Creatinine Urine Total Protein Fluid Total Protein Vancomycin Trough Rheumatoid Factor Complement C4 Miscellaneous Test Crossmatch 03/14/17 03/14/17 03/14/17 05:19 11:08 12:51 WBC RBC Hgb Hct MCV MCH MCHC RDW Plt Count Lymph % (Auto) [place] % (Auto) Lymph # [place] # Baso # Seg Neutrophils % Seg Neuts % (Manual) Lymphocytes % (Manual) Monocytes % (Manual) Eosinophils % (Manual) Basophils % (Manual) Nucleated RBC % Seg Neutrophils # Seg Neutrophils # Man Lymphocytes # (Manual) Monocytes # (Manual) Eosinophils # (Manual) Basophils # (Manual) PT INR Fibrinogen dRVVT Confirm Interp Factor V Activity POC ABG pH POC ABG pCO2 POC ABG pO2 ABG pO2 ABG HCO3 ABG Base Excess ABG Hemoglobin Oxyhemoglobin Sodium Potassium Chloride Carbon Dioxide BUN Creatinine Glucose POC Glucose 159 H 144 H Lactic Acid Calcium Ionized Calcium Phosphorus Magnesium Direct Bilirubin AST ALT Alkaline Phosphatase Lactate Dehydrogenase Troponin T C-Reactive Protein 19.50 H Total Protein Albumin Prealbumin Triglycerides Cholesterol LDL Cholesterol Direct HDL Cholesterol 25-OH Vitamin D Total PTH Intact Urine pH Urine WBC (Auto) Urine Creatinine Urine Total Protein Fluid Total Protein Vancomycin Trough Rheumatoid Factor Complement C4 Miscellaneous Test Crossmatch 03/14/17 03/14/17 03/14/17 14:30 16:50 16:55 WBC 17.6 H RBC 2.18 L Hgb 6.0 L Hct 19.8 L* MCV MCH MCHC RDW 19.9 H Plt Count Lymph % (Auto) [place] % (Auto) Lymph # [place] # Baso # Seg Neutrophils % Seg Neuts % (Manual) Lymphocytes % (Manual) 13.0 L Monocytes % (Manual) 15.0 H Eosinophils % (Manual) Basophils % (Manual) Nucleated RBC % Seg Neutrophils # Seg Neutrophils # Man 12.3 H Lymphocytes # (Manual) Monocytes # (Manual) 2.6 H Eosinophils # (Manual) Basophils # (Manual) PT INR Fibrinogen dRVVT Confirm Interp Factor V Activity POC ABG pH POC ABG pCO2 POC ABG pO2 ABG pO2 ABG HCO3 ABG Base Excess ABG Hemoglobin Oxyhemoglobin Sodium Potassium Chloride Carbon Dioxide BUN Creatinine Glucose POC Glucose 156 H Lactic Acid Calcium Ionized Calcium Phosphorus Magnesium Direct Bilirubin AST ALT Alkaline Phosphatase Lactate Dehydrogenase Troponin T C-Reactive Protein Total Protein Albumin Prealbumin Triglycerides Cholesterol LDL Cholesterol Direct HDL Cholesterol 25-OH Vitamin D Total PTH Intact Urine pH Urine WBC (Auto) Urine Creatinine Urine Total Protein Fluid Total Protein Vancomycin Trough Rheumatoid Factor Complement C4 Miscellaneous Test Crossmatch See Detail 03/14/17 03/15/17 03/15/17 23:31 05:03 05:03 WBC 15.2 H RBC 2.42 L Hgb 6.9 L Hct 22.2 L MCV MCH MCHC RDW 18.4 H Plt Count Lymph % (Auto) [place] % (Auto) Lymph # [place] # Baso # Seg Neutrophils % Seg Neuts % (Manual) Lymphocytes % (Manual) Monocytes % (Manual) Eosinophils % (Manual) Basophils % (Manual) Nucleated RBC % Seg Neutrophils # Seg Neutrophils # Man Lymphocytes # (Manual) Monocytes # (Manual) Eosinophils # (Manual) Basophils # (Manual) PT INR Fibrinogen dRVVT Confirm Interp Factor V Activity POC ABG pH POC ABG pCO2 POC ABG pO2 ABG pO2 ABG HCO3 ABG Base Excess ABG Hemoglobin Oxyhemoglobin Sodium Potassium 3.5 L Chloride Carbon Dioxide BUN 54 H Creatinine 2.6 H Glucose 127 H POC Glucose 176 H Lactic Acid Calcium Ionized Calcium Phosphorus Magnesium Direct Bilirubin AST ALT Alkaline Phosphatase Lactate Dehydrogenase Troponin T C-Reactive Protein Total Protein Albumin Prealbumin Triglycerides Cholesterol LDL Cholesterol Direct HDL Cholesterol 25-OH Vitamin D Total PTH Intact Urine pH Urine WBC (Auto) Urine Creatinine Urine Total Protein Fluid Total Protein Vancomycin Trough Rheumatoid Factor Complement C4 Miscellaneous Test Crossmatch 03/15/17 03/15/17 03/15/17 05:04 12:52 17:46 WBC RBC Hgb Hct MCV MCH MCHC RDW Plt Count Lymph % (Auto) [place] % (Auto) Lymph # [place] # Baso # Seg Neutrophils % Seg Neuts % (Manual) Lymphocytes % (Manual) Monocytes % (Manual) Eosinophils % (Manual) Basophils % (Manual) Nucleated RBC % Seg Neutrophils # Seg Neutrophils # Man Lymphocytes # (Manual) Monocytes # (Manual) Eosinophils # (Manual) Basophils # (Manual) PT INR Fibrinogen dRVVT Confirm Interp Factor V Activity POC ABG pH POC ABG pCO2 POC ABG pO2 ABG pO2 ABG HCO3 ABG Base Excess ABG Hemoglobin Oxyhemoglobin Sodium Potassium Chloride Carbon Dioxide BUN Creatinine Glucose POC Glucose 106 H 141 H 170 H Lactic Acid Calcium Ionized Calcium Phosphorus Magnesium Direct Bilirubin AST ALT Alkaline Phosphatase Lactate Dehydrogenase Troponin T C-Reactive Protein Total Protein Albumin Prealbumin Triglycerides Cholesterol LDL Cholesterol Direct HDL Cholesterol 25-OH Vitamin D Total PTH Intact Urine pH Urine WBC (Auto) Urine Creatinine Urine Total Protein Fluid Total Protein Vancomycin Trough Rheumatoid Factor Complement C4 Miscellaneous Test Crossmatch 03/16/17 03/16/17 03/16/17 00:16 03:35 05:15 WBC RBC Hgb Hct MCV MCH MCHC RDW Plt Count Lymph % (Auto) [place] % (Auto) Lymph # [place] # Baso # Seg Neutrophils % Seg Neuts % (Manual) Lymphocytes % (Manual) Monocytes % (Manual) Eosinophils % (Manual) Basophils % (Manual) Nucleated RBC % Seg Neutrophils # Seg Neutrophils # Man Lymphocytes # (Manual) Monocytes # (Manual) Eosinophils # (Manual) Basophils # (Manual) PT INR Fibrinogen dRVVT Confirm Interp Factor V Activity POC ABG pH POC ABG pCO2 POC ABG pO2 ABG pO2 ABG HCO3 ABG Base Excess ABG Hemoglobin Oxyhemoglobin Sodium Potassium 3.5 L Chloride Carbon Dioxide BUN 26 H Creatinine 1.3 H Glucose 129 H POC Glucose 120 H 140 H Lactic Acid Calcium 7.9 L Ionized Calcium Phosphorus 2.20 L D Magnesium Direct Bilirubin AST ALT Alkaline Phosphatase Lactate Dehydrogenase Troponin T C-Reactive Protein Total Protein Albumin Prealbumin Triglycerides Cholesterol LDL Cholesterol Direct HDL Cholesterol 25-OH Vitamin D Total PTH Intact Urine pH Urine WBC (Auto) Urine Creatinine Urine Total Protein Fluid Total Protein Vancomycin Trough Rheumatoid Factor Complement C4 Miscellaneous Test Crossmatch 03/16/17 03/16/17 03/17/17 12:26 18:16 00:00 WBC RBC Hgb Hct MCV MCH MCHC RDW Plt Count Lymph % (Auto) [place] % (Auto) Lymph # [place] # Baso # Seg Neutrophils % Seg Neuts % (Manual) Lymphocytes % (Manual) Monocytes % (Manual) Eosinophils % (Manual) Basophils % (Manual) Nucleated RBC % Seg Neutrophils # Seg Neutrophils # Man Lymphocytes # (Manual) Monocytes # (Manual) Eosinophils # (Manual) Basophils # (Manual) PT INR Fibrinogen dRVVT Confirm Interp Factor V Activity POC ABG pH POC ABG pCO2 POC ABG pO2 ABG pO2 ABG HCO3 ABG Base Excess ABG Hemoglobin Oxyhemoglobin Sodium Potassium Chloride Carbon Dioxide BUN Creatinine Glucose POC Glucose 133 H 107 H 124 H Lactic Acid Calcium Ionized Calcium Phosphorus Magnesium Direct Bilirubin AST ALT Alkaline Phosphatase Lactate Dehydrogenase Troponin T C-Reactive Protein Total Protein Albumin Prealbumin Triglycerides Cholesterol LDL Cholesterol Direct HDL Cholesterol 25-OH Vitamin D Total PTH Intact Urine pH Urine WBC (Auto) Urine Creatinine Urine Total Protein Fluid Total Protein Vancomycin Trough Rheumatoid Factor Complement C4 Miscellaneous Test Crossmatch 03/17/17 03/17/17 03/17/17 04:00 05:57 12:00 WBC RBC Hgb Hct MCV MCH MCHC RDW Plt Count Lymph % (Auto) [place] % (Auto) Lymph # [place] # Baso # Seg Neutrophils % Seg Neuts % (Manual) Lymphocytes % (Manual) Monocytes % (Manual) Eosinophils % (Manual) Basophils % (Manual) Nucleated RBC % Seg Neutrophils # Seg Neutrophils # Man Lymphocytes # (Manual) Monocytes # (Manual) Eosinophils # (Manual) Basophils # (Manual) PT INR Fibrinogen dRVVT Confirm Interp Factor V Activity POC ABG pH POC ABG pCO2 POC ABG pO2 ABG pO2 ABG HCO3 ABG Base Excess ABG Hemoglobin Oxyhemoglobin Sodium 134 L Potassium Chloride 95.1 L Carbon Dioxide BUN 37 H Creatinine 1.8 H Glucose 115 H POC Glucose 141 H 129 H Lactic Acid Calcium 8.3 L Ionized Calcium Phosphorus 5.50 H D Magnesium Direct Bilirubin AST ALT Alkaline Phosphatase Lactate Dehydrogenase Troponin T C-Reactive Protein Total Protein Albumin Prealbumin Triglycerides Cholesterol LDL Cholesterol Direct HDL Cholesterol 25-OH Vitamin D Total PTH Intact Urine pH Urine WBC (Auto) Urine Creatinine Urine Total Protein Fluid Total Protein Vancomycin Trough Rheumatoid Factor Complement C4 Miscellaneous Test Crossmatch 03/17/17 03/18/17 03/18/17 17:23 00:04 04:00 WBC RBC Hgb Hct MCV MCH MCHC RDW Plt Count Lymph % (Auto) [place] % (Auto) Lymph # [place] # Baso # Seg Neutrophils % Seg Neuts % (Manual) Lymphocytes % (Manual) Monocytes % (Manual) Eosinophils % (Manual) Basophils % (Manual) Nucleated RBC % Seg Neutrophils # Seg Neutrophils # Man Lymphocytes # (Manual) Monocytes # (Manual) Eosinophils # (Manual) Basophils # (Manual) PT INR Fibrinogen dRVVT Confirm Interp Factor V Activity POC ABG pH POC ABG pCO2 POC ABG pO2 ABG pO2 ABG HCO3 ABG Base Excess ABG Hemoglobin Oxyhemoglobin Sodium Potassium Chloride Carbon Dioxide BUN 23 H Creatinine 1.3 H Glucose 122 H POC Glucose 155 H 126 H Lactic Acid Calcium 8.3 L Ionized Calcium Phosphorus Magnesium Direct Bilirubin AST ALT Alkaline Phosphatase Lactate Dehydrogenase Troponin T C-Reactive Protein Total Protein Albumin Prealbumin Triglycerides Cholesterol LDL Cholesterol Direct HDL Cholesterol 25-OH Vitamin D Total PTH Intact Urine pH Urine WBC (Auto) Urine Creatinine Urine Total Protein Fluid Total Protein Vancomycin Trough Rheumatoid Factor Complement C4 Miscellaneous Test Crossmatch 03/18/17 03/18/17 03/18/17 05:47 11:15 18:07 WBC RBC Hgb Hct MCV MCH MCHC RDW Plt Count Lymph % (Auto) [place] % (Auto) Lymph # [place] # Baso # Seg Neutrophils % Seg Neuts % (Manual) Lymphocytes % (Manual) Monocytes % (Manual) Eosinophils % (Manual) Basophils % (Manual) Nucleated RBC % Seg Neutrophils # Seg Neutrophils # Man Lymphocytes # (Manual) Monocytes # (Manual) Eosinophils # (Manual) Basophils # (Manual) PT INR Fibrinogen dRVVT Confirm Interp Factor V Activity POC ABG pH POC ABG pCO2 POC ABG pO2 ABG pO2 ABG HCO3 ABG Base Excess ABG Hemoglobin Oxyhemoglobin Sodium Potassium Chloride Carbon Dioxide BUN Creatinine Glucose POC Glucose 139 H 138 H 134 H Lactic Acid Calcium Ionized Calcium Phosphorus Magnesium Direct Bilirubin AST ALT Alkaline Phosphatase Lactate Dehydrogenase Troponin T C-Reactive Protein Total Protein Albumin Prealbumin Triglycerides Cholesterol LDL Cholesterol Direct HDL Cholesterol 25-OH Vitamin D Total PTH Intact Urine pH Urine WBC (Auto) Urine Creatinine Urine Total Protein Fluid Total Protein Vancomycin Trough Rheumatoid Factor Complement C4 Miscellaneous Test Crossmatch 03/19/17 03/19/17 03/19/17 00:34 06:11 11:15 WBC RBC Hgb Hct MCV MCH MCHC RDW Plt Count Lymph % (Auto) [place] % (Auto) Lymph # [place] # Baso # Seg Neutrophils % Seg Neuts % (Manual) Lymphocytes % (Manual) Monocytes % (Manual) Eosinophils % (Manual) Basophils % (Manual) Nucleated RBC % Seg Neutrophils # Seg Neutrophils # Man Lymphocytes # (Manual) Monocytes # (Manual) Eosinophils # (Manual) Basophils # (Manual) PT INR Fibrinogen dRVVT Confirm Interp Factor V Activity POC ABG pH POC ABG pCO2 POC ABG pO2 ABG pO2 ABG HCO3 ABG Base Excess ABG Hemoglobin Oxyhemoglobin Sodium Potassium Chloride Carbon Dioxide BUN Creatinine Glucose POC Glucose 139 H 146 H 129 H Lactic Acid Calcium Ionized Calcium Phosphorus Magnesium Direct Bilirubin AST ALT Alkaline Phosphatase Lactate Dehydrogenase Troponin T C-Reactive Protein Total Protein Albumin Prealbumin Triglycerides Cholesterol LDL Cholesterol Direct HDL Cholesterol 25-OH Vitamin D Total PTH Intact Urine pH Urine WBC (Auto) Urine Creatinine Urine Total Protein Fluid Total Protein Vancomycin Trough Rheumatoid Factor Complement C4 Miscellaneous Test Crossmatch 03/19/17 03/19/17 03/19/17 17:28 23:23 Unknown WBC RBC Hgb Hct MCV MCH MCHC RDW Plt Count Lymph % (Auto) [place] % (Auto) Lymph # [place] # Baso # Seg Neutrophils % Seg Neuts % (Manual) Lymphocytes % (Manual) Monocytes % (Manual) Eosinophils % (Manual) Basophils % (Manual) Nucleated RBC % Seg Neutrophils # Seg Neutrophils # Man Lymphocytes # (Manual) Monocytes # (Manual) Eosinophils # (Manual) Basophils # (Manual) PT INR Fibrinogen dRVVT Confirm Interp Factor V Activity POC ABG pH POC ABG pCO2 POC ABG pO2 ABG pO2 ABG HCO3 ABG Base Excess ABG Hemoglobin Oxyhemoglobin Sodium Potassium Chloride 96.8 L Carbon Dioxide BUN 34 H Creatinine 1.9 H Glucose 138 H POC Glucose 142 H 144 H Lactic Acid Calcium Ionized Calcium Phosphorus 5.20 H D Magnesium Direct Bilirubin AST ALT Alkaline Phosphatase Lactate Dehydrogenase Troponin T C-Reactive Protein Total Protein Albumin Prealbumin Triglycerides Cholesterol LDL Cholesterol Direct HDL Cholesterol 25-OH Vitamin D Total PTH Intact Urine pH Urine WBC (Auto) Urine Creatinine Urine Total Protein Fluid Total Protein Vancomycin Trough Rheumatoid Factor Complement C4 Miscellaneous Test Crossmatch 03/20/17 03/20/17 03/20/17 13:55 16:00 23:38 WBC 13.8 H RBC 2.21 L Hgb 6.6 L Hct 21.2 L MCV MCH MCHC RDW 19.7 H Plt Count Lymph % (Auto) [place] % (Auto) Lymph # [place] # 1.0 H Baso # Seg Neutrophils % 72.0 H Seg Neuts % (Manual) Lymphocytes % (Manual) Monocytes % (Manual) Eosinophils % (Manual) Basophils % (Manual) Nucleated RBC % Seg Neutrophils # 9.9 H Seg Neutrophils # Man Lymphocytes # (Manual) Monocytes # (Manual) Eosinophils # (Manual) Basophils # (Manual) PT INR Fibrinogen dRVVT Confirm Interp Factor V Activity POC ABG pH POC ABG pCO2 POC ABG pO2 ABG pO2 ABG HCO3 ABG Base Excess ABG Hemoglobin Oxyhemoglobin Sodium Potassium Chloride Carbon Dioxide BUN Creatinine Glucose POC Glucose 163 H Lactic Acid Calcium Ionized Calcium Phosphorus Magnesium Direct Bilirubin AST ALT Alkaline Phosphatase Lactate Dehydrogenase Troponin T C-Reactive Protein Total Protein Albumin Prealbumin Triglycerides Cholesterol LDL Cholesterol Direct HDL Cholesterol 25-OH Vitamin D Total PTH Intact Urine pH Urine WBC (Auto) Urine Creatinine Urine Total Protein Fluid Total Protein Vancomycin Trough Rheumatoid Factor Complement C4 Miscellaneous Test Crossmatch See Detail 03/20/17 03/21/17 03/21/17 Unknown 04:57 05:20 WBC 15.3 H RBC 2.68 L Hgb 8.8 L Hct 24.6 L MCV MCH 33 H MCHC 36 H RDW 19.4 H Plt Count Lymph % (Auto) [place] % (Auto) Lymph # [place] # 1.1 H Baso # Seg Neutrophils % 76.8 H Seg Neuts % (Manual) Lymphocytes % (Manual) Monocytes % (Manual) Eosinophils % (Manual) Basophils % (Manual) Nucleated RBC % Seg Neutrophils # 11.7 H Seg Neutrophils # Man Lymphocytes # (Manual) Monocytes # (Manual) Eosinophils # (Manual) Basophils # (Manual) PT INR Fibrinogen dRVVT Confirm Interp Factor V Activity POC ABG pH POC ABG pCO2 POC ABG pO2 ABG pO2 ABG HCO3 ABG Base Excess ABG Hemoglobin Oxyhemoglobin Sodium Potassium Chloride 97.7 L Carbon Dioxide BUN 43 H Creatinine 2.2 H Glucose POC Glucose 111 H Lactic Acid Calcium Ionized Calcium Phosphorus 5.30 H Magnesium Direct Bilirubin AST ALT 6 L Alkaline Phosphatase Lactate Dehydrogenase Troponin T C-Reactive Protein Total Protein Albumin 0.9 L Prealbumin Triglycerides Cholesterol LDL Cholesterol Direct HDL Cholesterol 25-OH Vitamin D Total PTH Intact Urine pH Urine WBC (Auto) Urine Creatinine Urine Total Protein Fluid Total Protein Vancomycin Trough Rheumatoid Factor Complement C4 Miscellaneous Test Crossmatch 03/21/17 03/22/17 03/22/17 17:18 06:25 12:30 WBC RBC Hgb Hct MCV MCH MCHC RDW Plt Count Lymph % (Auto) [place] % (Auto) Lymph # [place] # Baso # Seg Neutrophils % Seg Neuts % (Manual) Lymphocytes % (Manual) Monocytes % (Manual) Eosinophils % (Manual) Basophils % (Manual) Nucleated RBC % Seg Neutrophils # Seg Neutrophils # Man Lymphocytes # (Manual) Monocytes # (Manual) Eosinophils # (Manual) Basophils # (Manual) PT INR Fibrinogen dRVVT Confirm Interp Factor V Activity POC ABG pH POC ABG pCO2 POC ABG pO2 ABG pO2 ABG HCO3 ABG Base Excess ABG Hemoglobin Oxyhemoglobin Sodium 136 L Potassium Chloride 97.7 L Carbon Dioxide BUN 31 H Creatinine 1.8 H Glucose 102 H POC Glucose 118 H 164 H Lactic Acid Calcium Ionized Calcium Phosphorus Magnesium Direct Bilirubin AST ALT Alkaline Phosphatase Lactate Dehydrogenase Troponin T C-Reactive Protein Total Protein Albumin Prealbumin Triglycerides Cholesterol LDL Cholesterol Direct HDL Cholesterol 25-OH Vitamin D Total PTH Intact Urine pH Urine WBC (Auto) Urine Creatinine Urine Total Protein Fluid Total Protein Vancomycin Trough Rheumatoid Factor Complement C4 Miscellaneous Test Crossmatch 03/23/17 03/23/17 03/23/17 05:30 05:30 11:18 WBC RBC 2.50 L Hgb 8.0 L Hct 24.1 L MCV MCH MCHC RDW 22.2 H Plt Count Lymph % (Auto) [place] % (Auto) Lymph # [place] # Baso # Seg Neutrophils % 72.3 H Seg Neuts % (Manual) Lymphocytes % (Manual) Monocytes % (Manual) Eosinophils % (Manual) Basophils % (Manual) Nucleated RBC % Seg Neutrophils # Seg Neutrophils # Man Lymphocytes # (Manual) Monocytes # (Manual) Eosinophils # (Manual) Basophils # (Manual) PT INR Fibrinogen dRVVT Confirm Interp Factor V Activity POC ABG pH POC ABG pCO2 POC ABG pO2 ABG pO2 ABG HCO3 ABG Base Excess ABG Hemoglobin Oxyhemoglobin Sodium 136 L Potassium Chloride Carbon Dioxide BUN Creatinine 1.4 H Glucose POC Glucose 111 H Lactic Acid Calcium 8.2 L Ionized Calcium Phosphorus 2.10 L D Magnesium 1.60 L Direct Bilirubin AST ALT Alkaline Phosphatase Lactate Dehydrogenase Troponin T C-Reactive Protein Total Protein Albumin Prealbumin Triglycerides Cholesterol LDL Cholesterol Direct HDL Cholesterol 25-OH Vitamin D Total PTH Intact Urine pH Urine WBC (Auto) Urine Creatinine Urine Total Protein Fluid Total Protein Vancomycin Trough Rheumatoid Factor Complement C4 Miscellaneous Test Crossmatch 03/24/17 03/24/17 03/24/17 05:50 11:18 17:43 WBC RBC Hgb Hct MCV MCH MCHC RDW Plt Count Lymph % (Auto) [place] % (Auto) Lymph # [place] # Baso # Seg Neutrophils % Seg Neuts % (Manual) Lymphocytes % (Manual) Monocytes % (Manual) Eosinophils % (Manual) Basophils % (Manual) Nucleated RBC % Seg Neutrophils # Seg Neutrophils # Man Lymphocytes # (Manual) Monocytes # (Manual) Eosinophils # (Manual) Basophils # (Manual) PT INR Fibrinogen dRVVT Confirm Interp Factor V Activity POC ABG pH POC ABG pCO2 POC ABG pO2 ABG pO2 ABG HCO3 ABG Base Excess ABG Hemoglobin Oxyhemoglobin Sodium Potassium Chloride Carbon Dioxide BUN 26 H Creatinine 1.9 H Glucose POC Glucose 133 H 135 H Lactic Acid Calcium Ionized Calcium Phosphorus Magnesium Direct Bilirubin AST ALT Alkaline Phosphatase Lactate Dehydrogenase Troponin T C-Reactive Protein Total Protein Albumin Prealbumin Triglycerides Cholesterol LDL Cholesterol Direct HDL Cholesterol 25-OH Vitamin D Total PTH Intact Urine pH Urine WBC (Auto) Urine Creatinine Urine Total Protein Fluid Total Protein Vancomycin Trough Rheumatoid Factor Complement C4 Miscellaneous Test Crossmatch 03/25/17 03/25/17 03/25/17 05:15 05:19 17:38 WBC RBC Hgb Hct MCV MCH MCHC RDW Plt Count Lymph % (Auto) [place] % (Auto) Lymph # [place] # Baso # Seg Neutrophils % Seg Neuts % (Manual) Lymphocytes % (Manual) Monocytes % (Manual) Eosinophils % (Manual) Basophils % (Manual) Nucleated RBC % Seg Neutrophils # Seg Neutrophils # Man Lymphocytes # (Manual) Monocytes # (Manual) Eosinophils # (Manual) Basophils # (Manual) PT INR Fibrinogen dRVVT Confirm Interp Factor V Activity POC ABG pH POC ABG pCO2 POC ABG pO2 ABG pO2 ABG HCO3 ABG Base Excess ABG Hemoglobin Oxyhemoglobin Sodium Potassium Chloride Carbon Dioxide BUN Creatinine 1.3 H Glucose POC Glucose 110 H 109 H Lactic Acid Calcium Ionized Calcium Phosphorus Magnesium Direct Bilirubin AST ALT Alkaline Phosphatase Lactate Dehydrogenase Troponin T C-Reactive Protein Total Protein Albumin Prealbumin Triglycerides Cholesterol LDL Cholesterol Direct HDL Cholesterol 25-OH Vitamin D Total PTH Intact Urine pH Urine WBC (Auto) Urine Creatinine Urine Total Protein Fluid Total Protein Vancomycin Trough Rheumatoid Factor Complement C4 Miscellaneous Test Crossmatch 03/25/17 03/26/17 03/26/17 23:57 09:35 12:18 WBC RBC Hgb Hct MCV MCH MCHC RDW Plt Count Lymph % (Auto) [place] % (Auto) Lymph # [place] # Baso # Seg Neutrophils % Seg Neuts % (Manual) Lymphocytes % (Manual) Monocytes % (Manual) Eosinophils % (Manual) Basophils % (Manual) Nucleated RBC % Seg Neutrophils # Seg Neutrophils # Man Lymphocytes # (Manual) Monocytes # (Manual) Eosinophils # (Manual) Basophils # (Manual) PT INR Fibrinogen dRVVT Confirm Interp Factor V Activity POC ABG pH POC ABG pCO2 POC ABG pO2 ABG pO2 ABG HCO3 ABG Base Excess ABG Hemoglobin Oxyhemoglobin Sodium Potassium Chloride Carbon Dioxide BUN 25 H Creatinine 2.0 H D Glucose POC Glucose 107 H 106 H Lactic Acid Calcium Ionized Calcium Phosphorus 4.60 H D Magnesium 2.40 H Direct Bilirubin AST ALT Alkaline Phosphatase Lactate Dehydrogenase Troponin T C-Reactive Protein Total Protein Albumin Prealbumin Triglycerides Cholesterol LDL Cholesterol Direct HDL Cholesterol 25-OH Vitamin D Total PTH Intact Urine pH Urine WBC (Auto) Urine Creatinine Urine Total Protein Fluid Total Protein Vancomycin Trough Rheumatoid Factor Complement C4 Miscellaneous Test Crossmatch 03/27/17 03/27/17 05:30 05:30 WBC RBC 2.95 L Hgb 8.9 L Hct 28.7 L MCV MCH MCHC RDW 24.4 H Plt Count Lymph % (Auto) [place] % (Auto) 8.6 H Lymph # [place] # Baso # Seg Neutrophils % Seg Neuts % (Manual) Lymphocytes % (Manual) Monocytes % (Manual) Eosinophils % (Manual) Basophils % (Manual) Nucleated RBC % Seg Neutrophils # Seg Neutrophils # Man Lymphocytes # (Manual) Monocytes # (Manual) Eosinophils # (Manual) Basophils # (Manual) PT INR Fibrinogen dRVVT Confirm Interp Factor V Activity POC ABG pH POC ABG pCO2 POC ABG pO2 ABG pO2 ABG HCO3 ABG Base Excess ABG Hemoglobin Oxyhemoglobin Sodium Potassium Chloride 96.9 L Carbon Dioxide BUN 29 H Creatinine 2.5 H Glucose 102 H POC Glucose Lactic Acid Calcium Ionized Calcium Phosphorus 5.30 H Magnesium 2.60 H Direct Bilirubin AST ALT Alkaline Phosphatase Lactate Dehydrogenase Troponin T C-Reactive Protein Total Protein Albumin Prealbumin Triglycerides Cholesterol LDL Cholesterol Direct HDL Cholesterol 25-OH Vitamin D Total PTH Intact Urine pH Urine WBC (Auto) Urine Creatinine Urine Total Protein Fluid Total Protein Vancomycin Trough Rheumatoid Factor Complement C4 Miscellaneous Test Crossmatch Allied health notes reviewed: nursing
[2017-03-27] MEDS ORDERED: NACL 0.9% 100 ML IV PRN (11:30)
[2017-03-27] MEDS: ZOSYN/NS 2.25 GM/50ML 2.25 GM/50 ML BAG IV SCH ×3 (14:21→21:30)
[2017-03-27] MEDS ORDERED: NACL 0.9% 1000 ML 1,000 ML ONE (16:27)
--- NOTE | 2017-03-27 16:39 | Progress Note ---
Assessment and Plan Assessment: 1) Recurrent SIRS: new septic shock - resolved - Likely due to intra-abdominal abscess 2) History of Peritonitis: from gastric perforation from dislodged PEG with significant ascites -S/P exlap, repair of gastric perforation with wedge gastrectomy, abdominal washout, drain placement on 10/05 3) History of Candidemia: -Blood cultures positive for Silvia albicans on 09/23 and 09/25 -Blood cultures negative on 09/30 -PICC line changed on 10/03 -Source ? gastric perf (PEG placed on 09/20) +/- TPN +/- central lines -TTE 10/07 no vegetations -PICC exchanged on 10/03 -fully treated with micafungin for 14 days last day 10/13 4) History CA-UTI s/p gutierrez exchanged 5) Diarrhea - ? etiology ? antibiotic-induced, not better. 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 from GI bleed 13) Recent abdominal wall abscess at surgical site-treated 14 ) Recent Enterococcal bacteremia from PICC line infection. 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 -S/P debridement at bedside - new wound cx 01/24 +Proteus and MDR Pseudomonas (resistant to meropenem and cefepime/sensitive to ceftazidime) and wound VAC placement -CRP=24 --> 8 16) Presumed VAP: sputum + MDR Pseudomonas / Proteus / pleural effusion s/p thoracentesis 17) Resp failure - better 18) Perforated bowel: Ct showed presumed perf bowel with free air -repeat CT showed large 21x4.2 cm collection -s/p CT guided drainage -30 mL's of dark purulent fluid was aspirated 19) Enterococcal septicemia from IV cath. TTE no vegetations 18) PIV site infection s/p line removed on 03/09 tip + Enterococcus Plan: -continue zosyn and dapto for MDR Pseudomonas/Proteus/VRE -day 5 of 7 -remove femoral cath Will sign off Thank you for your consultation, will follow up with you. Pauline Carias MD Infectious Diseases Specialist [facility] ([facility]) M [phone] O [phone] Subjective Date of service: 03/27/17 Principal diagnosis: Acute resp failure on MVS; S/P Acute CVA; Acute Encephalopathy; JUANITA Interval history: Interval history: remains on the vent, tachy on monitor, on amiodarone gtt, fever resolved, off levophed Microbiology: Blood cultures: 09/13 neg 09/23 Silvia albicans 09/25 Silvia 09/29 neg 10/07 neg 11/05 neg 11/07 ngtd 11/22 E faecalis 1 of 4 bottles 11/25 neg 12/27 neg 01/09 ngtd 02/14 ngtd 02/27 Enterococcus durans 1 of 4 bottles 03/06 ngtd PIV tip 03/09 Enterococcus, PARTS CLASSIFIER, Proteus Urine cultures: 09/10 neg 09/13 neg 09/23 10-100K mixed species 10/07 neg 11/05 VRE 11/07 mixed bacteria Respiratory cultures: 09/07 neg 09/13 neg 09/23 neg 11/07 MDR Pseudomonas 11/21 tracheal + VRE 01/09 Pseudomonas x 3 and Proteues Pleural effusion: ngtd Wound cultures: 10/17 abd wall wound purulence + Pseudomonas MDR 01/24 GNRs 03/15 drainage - Proteus sen to zosyn, Pseudomonas sens zosyn, GNR x 1 and VRE Stool cultures: cath tip 11/07 + PARTS CLASSIFIER Current Antimicrobials: zosyn 03/23 dapto 03/23 Previous Antimicrobials: Zosyn 10/07 Vancomycin PO 10/01 Metronidazole 09/25 Micafungin 09/27-10/13 Meropenem 10/10 Vanco 10/17 zosyn 10/21 Cefepime 11/10 vancomyin 11/07 fluconazole 10/19 cefepime 10/29levaquin 11/05 vanco 11/23 meropenem 01/08 ceftaz efepime 03/09 flagyl 03/09 vanco Objective - Exam Narrative Exam: General appearance: alert non communicative, on the vent via trach in mild resp distress, no following commands Eyes: anicteric sclera, moist conjunctivae; PERRLA HENT: Atraumatic; oropharynx limited; Normal external ears. +NGT with greenish secretion Neck: +trach in place; supple, no thyromegaly or lymphadenopathy Lungs: brit coarse BS CV: tachy Abdomen: Soft, tender, +old PEG site no drainage. +iliostomy. Right sided Surgical site x 2 with ostomy bags. +drain with clear Extremities: +peripheral edema Skin: sacral area wounds - per wound care STAGE 4 PRESSURE INJURY TO SACRAL MEASURES 7.5X6X2.5, WITH UNDERMINING FROM @9-1 OCLOCK-2.8CM-ULCER CLEANED WITH WOUND PARARESCUE MANAGER-ULCER NEW - Sacrum wound measuring 9x11cm. Necrotic tissue noted on the wound edges and in the wound bed Now with a wound VAC Psych: somnolent . Neuro: alert non verbal on the vent. Lines: PICC / gutierrez - Constitutional Vitals: Vital Signs Temp Pulse Resp BP Pulse Ox 98.8 F 84 24 131/97 98 03/27/17 15:15 03/27/17 16:25 03/27/17 16:25 03/27/17 16:11 03/27/17 16:11 Temperature -Last 24 Hours Temperature 98.8 F Temperature 97 F Temperature 98.3 F Temperature 99.0 F Temperature 99.3 F Temperature 98.9 F - Labs CBC & Chem 7: 03/27/17 05:30 03/27/17 05:30 Labs: Abnormal lab results 03/26/17 03/27/17 03/27/17 Range/Units 12:18 05:30 05:30 RBC 2.95 L (3.65-5.03) M/mm3 Hgb 8.9 L (10.1-14.3) gm/dl Hct 28.7 L (30.3-42.9) % RDW 24.4 H (13.2-15.2) % [place] % (Auto) 8.6 H (0.0-7.3) % Chloride 96.9 L (98-107) mmol/L BUN 29 H (7-17) mg/dL Creatinine 2.5 H (0.7-1.2) mg/dL Glucose 102 H (65-100) mg/dL POC Glucose 106 H (70-105) Phosphorus 5.30 H (2.5-4.5) mg/dL Magnesium 2.60 H (1.7-2.3) mg/dL
--- NOTE | 2017-03-27 16:56 | Progress Note ---
Assessment and Plan Assessment and plan: 47-year-old female patient multiple medical problems, large CVA , hypoxic encephalopathy , status post cardiac arrest , vegetative state , atrial fibrillation , sepsis , aspiration pneumonia , end- stage renal disease on hemodialysis , multiple sacral and lower extremity decubiti requiring debridement , severe protein calorie malnutrition peritonitis / perforation, multiple surgeries, DO NOT RESUSCITATE status,prolonged hospital stay and poor prognosis, --Acute respiratory failure/status post tracheostomy/ventilator dependent/ continue current management --Aspiration pneumonia/managed with multiple antibiotics per ID currently on daptomycin and Zosyn --Status post cardiac arrest/anoxic encephalopathy/vegetative state --Large CVA with mass effect/anoxic brain injury --Perforated bowel/drainage of large fluid collection, continue supportive care --Peritonitis/gastric perforation/status post laparotomy/on TPN --A. fib with rapid ventricular rate/continue amiodarone --Sepsis/recurrent enterococcal infection/ID following/continue current antibiotics --Hypotension/septic shock requiring Levophed, closely monitor --End-stage renal disease; on hemodialysis, nephrology following --Multiple sacral decubiti stage III to stage IV, post debridement, continue wound care --Severe protein calorie malnutrition; continue TPN, supportive care --DO NOT RESUSCITATE status, recommend hospice[family not willing] Very poor prognosis, family aware, recommend hospice, family not willing Unable to place in LTAC/SNF, Multiple social issues Disposition; continue current management, await placement Plan of care discussed with the patient's nurse History Interval history: Patient seen and examined in ICU this afternoon medical records reviewed No new events reported by the nursing staff Clinically no change Tracheostomy vent dependent, unresponsive Vital signs reviewed Hospitalist Physical - Constitutional Vitals: Temp Pulse Resp BP Pulse Ox 98.8 F 84 24 131/97 98 03/27/17 15:15 03/27/17 16:25 03/27/17 16:25 03/27/17 16:11 03/27/17 16:11 General appearance: Present: no acute distress, cachectic, other (spontaneous opening of eyes, unresponsive) - EENT Eyes: Present: PERRL, EOM intact - Neck Neck: Present: supple, normal ROM - Respiratory Respiratory effort: normal Respiratory: bilateral: diminished, rhonchi, negative: rales, wheezing - Cardiovascular Rhythm: regular Heart Sounds: Present: S1 & S2 - Extremities Extremities: abnormal (contracted) Extremity abnormal: edema - Abdominal General gastrointestinal: soft, non-tender, non-distended, hypoactive bowel sounds - Integumentary Integumentary: Present: clear, warm - Psychiatric Psychiatric: other (noncommunicative) - Neurologic Neurologic: other (noncommunicative) Results - Labs CBC & Chem 7: 03/27/17 05:30 03/27/17 05:30 Labs: Laboratory Last Values WBC 5.5 K/mm3 (4.5-11.0) 03/27/17 05:30 RBC 2.95 M/mm3 (3.65-5.03) L 03/27/17 05:30 Hgb 8.9 gm/dl (10.1-14.3) L 03/27/17 05:30 Hct 28.7 % (30.3-42.9) L 03/27/17 05:30 MCV 97 fl (79-97) 03/27/17 05:30 MCH 30 pg (28-32) 03/27/17 05:30 MCHC 31 % (30-34) 03/27/17 05:30 RDW 24.4 % (13.2-15.2) H 03/27/17 05:30 Plt Count 156 K/mm3 (140-440) 03/27/17 05:30 Lymph % (Auto) 25.1 % (13.4-35.0) 03/27/17 05:30 [place] % (Auto) 8.6 % (0.0-7.3) H 03/27/17 05:30 Eos % (Auto) 3.9 % (0.0-4.3) 03/27/17 05:30 Baso % (Auto) 1.5 % (0.0-1.8) 03/27/17 05:30 Lymph # 1.4 K/mm3 (1.2-5.4) 03/27/17 05:30 [place] # 0.5 K/mm3 (0.0-0.8) 03/27/17 05:30 Eos # 0.2 K/mm3 (0.0-0.4) 03/27/17 05:30 Baso # 0.1 K/mm3 (0.0-0.1) 03/27/17 05:30 Add Manual Diff Complete 03/14/17 14:30 Total Counted 100 03/14/17 14:30 Seg Neutrophils % 60.9 % (40.0-70.0) 03/27/17 05:30 Seg Neuts % (Manual) 70.0 % (40.0-70.0) 03/14/17 14:30 Band Neutrophils % 0 % 03/14/17 14:30 Lymphocytes % (Manual) 13.0 % (13.4-35.0) L 03/14/17 14:30 Reactive Lymphs % (Man) 1.0 % 03/14/17 14:30 Monocytes % (Manual) 15.0 % (0.0-7.3) H 03/14/17 14:30 Eosinophils % (Manual) 1.0 % (0.0-4.3) 03/14/17 14:30 Basophils % (Manual) 0 % (0.0-1.8) 03/14/17 14:30 Metamyelocytes % 0 % 03/14/17 14:30 Myelocytes % 0 % 03/14/17 14:30 Promyelocytes % 0 % 03/14/17 14:30 Blast Cells % 0 % 03/14/17 14:30 Nucleated RBC % Not Reportable 03/14/17 14:30 Seg Neutrophils # 3.3 K/mm3 (1.8-7.7) 03/27/17 05:30 Seg Neutrophils # Man 12.3 K/mm3 (1.8-7.7) H 03/14/17 14:30 Band Neutrophils # 0.0 K/mm3 03/14/17 14:30 Lymphocytes # (Manual) 2.3 K/mm3 (1.2-5.4) 03/14/17 14:30 Abs React Lymphs (Man) 0.2 K/mm3 03/14/17 14:30 Monocytes # (Manual) 2.6 K/mm3 (0.0-0.8) H 03/14/17 14:30 Eosinophils # (Manual) 0.2 K/mm3 (0.0-0.4) 03/14/17 14:30 Basophils # (Manual) 0.0 K/mm3 (0.0-0.1) 03/14/17 14:30 Metamyelocytes # 0.0 K/mm3 03/14/17 14:30 Myelocytes # 0.0 K/mm3 03/14/17 14:30 Promyelocytes # 0.0 K/mm3 03/14/17 14:30 Blast Cells # 0.0 K/mm3 03/14/17 14:30 Pathologist Review 09/13/16 04:00 WBC Morphology Not Reportable 03/14/17 14:30 Hypersegmented Neuts Not Reportable 03/14/17 14:30 Hyposegmented Neuts Not Reportable 03/14/17 14:30 Hypogranular Neuts Not Reportable 03/14/17 14:30 Smudge Cells Not Reportable 03/14/17 14:30 Toxic Granulation Not Reportable 03/14/17 14:30 Toxic Vacuolation Not Reportable 03/14/17 14:30 Dohle Bodies Not Reportable 03/14/17 14:30 Pelger-Huet Anomaly Not Reportable 03/14/17 14:30 Jasmina Rods Not Reportable 03/14/17 14:30 Platelet Estimate Consistent w auto 03/14/17 14:30 Clumped Platelets Not Reportable 03/14/17 14:30 Plt Clumps, EDTA Not Reportable 03/14/17 14:30 Large Platelets Not Reportable 03/14/17 14:30 Giant Platelets Not Reportable 03/14/17 14:30 Platelet Satelliting Not Reportable 03/14/17 14:30 Plt Morphology Comment Not Reportable 03/14/17 14:30 RBC Morphology Not Reportable 03/14/17 14:30 Dimorphic RBCs Not Reportable 03/14/17 14:30 Polychromasia Not Reportable 03/14/17 14:30 Hypochromasia 2+ 03/14/17 14:30 Poikilocytosis Not Reportable 03/14/17 14:30 Anisocytosis 1+ 03/14/17 14:30 Microcytosis Not Reportable 03/14/17 14:30 Macrocytosis Not Reportable 03/14/17 14:30 Spherocytes Not Reportable 03/14/17 14:30 Pappenheimer Bodies Not Reportable 03/14/17 14:30 Sickle Cells Not Reportable 03/14/17 14:30 Target Cells Not Reportable 03/14/17 14:30 Tear Drop Cells Not Reportable 03/14/17 14:30 Ovalocytes Not Reportable 03/14/17 14:30 Stomatocytes 2+ 03/14/17 14:30 Helmet Cells Not Reportable 03/14/17 14:30 [place] Bodies Not Reportable 03/14/17 14:30 [place] Rings Not Reportable 03/14/17 14:30 [place] Cells Not Reportable 03/14/17 14:30 Bite Cells Not Reportable 03/14/17 14:30 Crenated Cell Not Reportable 03/14/17 14:30 Elliptocytes Not Reportable 03/14/17 14:30 Acanthocytes (Spur) Not Reportable 03/14/17 14:30 Rouleaux Not Reportable 03/14/17 14:30 Hemoglobin C Crystals Not Reportable 03/14/17 14:30 Schistocytes Not Reportable 03/14/17 14:30 Malaria parasites Not Reportable 03/14/17 14:30 ESR > 140.0 mm/Hr (0-20) 09/08/16 11:48 Jun Bodies Not Reportable 03/14/17 14:30 Hem Pathologist Commnt No 03/14/17 14:30 PT 15.4 Sec. (12.2-14.9) H 01/13/17 15:50 INR 1.16 (0.87-1.13) H 01/13/17 15:50 APTT 33.0 Sec. (24.2-36.6) 10/09/16 03:45 Thrombin Time 16.8 Sec. (15.1-19.6) 09/03/16 00:10 Fibrinogen 750 mg/dl (211-480) H 09/08/16 11:48 Lupus Anticoagulant see below 09/12/16 09:59 LA PTT Baseline See scanned report 09/12/16 09:59 dRVVT Confirm Interp Positive (Negative) H 09/12/16 09:59 dRVVT Screen 50:50 See scanned report 09/12/16 09:59 dRVVT Mix Interpret See scanned report 09/12/16 09:59 Protein C Antigen 122 % (70-140) 09/08/16 15:35 Free Protein S 97 % normal (50-147) 09/08/16 15:35 Total Protein S 109 % (70-140) 09/08/16 15:35 Antithrombin III Ag 100 % (80-120) 09/08/16 15:35 Heparin Anti-Xa, Unfract Negative (Negative) 09/29/16 13:35 Factor V Activity 182 % (65-150) H 09/08/16 15:35 POC ABG pH 7.518 (7.35-7.45) H 03/03/17 20:17 ABG pH 7.450 pH Units (7.350-7.450) 12/05/16 Unknown POC ABG pCO2 28.8 (35-45) L 03/03/17 20: ABG pCO2 29.6 mm Hg 12/05/16 Unknown POC ABG pO2 61 (80-105) L 03/03/17 20: ABG pO2 75.2 mm Hg (80.0-90.0) L 12/05/16 Unknown POC ABG HCO3 23.4 03/03/17 20: ABG HCO3 20.1 mmol/L (20.0-26.0) 12/05/16 Unknown POC ABG Total CO2 24 03/03/17 20: POC ABG O2 Sat 94 03/03/17 20: ABG O2 Saturation 96.8 % (95.0-99.0) 12/05/16 Unknown ABG O2 Content 9.9 (0.0-44) 12/05/16 Unknown POC ABG Base Excess 0 03/03/17 20: ABG Base Excess -3.4 mmol/L (-2.0-3.0) L 12/05/16 Unknown ABG Hemoglobin 7.4 gm/dl (12.0-16.0) L 12/05/16 Unknown ABG Carboxyhemoglobin 1.8 % (0.0-5.0) 12/05/16 Unknown ABG Methemoglobin 0.6 % (0.0-1.5) 12/05/16 Unknown Oxyhemoglobin 94.5 % (95.0-99.0) L 12/05/16 Unknown FiO2 40 % 03/03/17 20:17 Sodium 138 mmol/L (137-145) 03/27/17 05:30 Potassium 3.9 mmol/L (3.6-5.0) 03/27/17 05:30 Chloride 96.9 mmol/L (98-107) L 03/27/17 05:30 Carbon Dioxide 29 mmol/L (22-30) 03/27/17 05:30 Anion Gap 16 mmol/L 03/27/17 05:30 BUN 29 mg/dL (7-17) H 03/27/17 05:30 Creatinine 2.5 mg/dL (0.7-1.2) H 03/27/17 05:30 Estimated GFR 25 ml/min 03/27/17 05:30 BUN/Creatinine Ratio 12 % 03/27/17 05:30 Glucose 102 mg/dL (65-100) H 03/27/17 05:30 POC Glucose 86 (70-105) 03/27/17 01:56 Osmolality 351 Mosm/kg 09/16/16 11:47 Lactic Acid 2.30 mmol/L (0.7-2.0) H* 01/09/17 08:22 Calcium 9.3 mg/dL (8.4-10.2) 03/27/17 05:30 Ionized Calcium 6.0 mg/dL (4.8-5.6) H 02/15/17 19:08 Phosphorus 5.30 mg/dL (2.5-4.5) H 03/27/17 05:30 Magnesium 2.60 mg/dL (1.7-2.3) H 03/27/17 05:30 Total Bilirubin 0.40 mg/dL (0.1-1.2) 03/20/17 Unknown Direct Bilirubin 0.2 mg/dL (0-0.2) 01/28/17 04:00 Indirect Bilirubin 0.3 mg/dL 01/28/17 04:00 AST 11 units/L (5-40) 03/20/17 Unknown ALT 6 units/L (7-56) L 03/20/17 Unknown Alkaline Phosphatase 97 units/L (35-129) 03/20/17 Unknown Ammonia 27.0 umol/L (25-60) 09/07/16 08:37 Lactate Dehydrogenase 170 units/L (91-180) 01/13/17 15:50 Total Creatine Kinase 121 units/L (30-135) 09/29/16 20:12 CK-MB (CK-2) < 1.0 ng/mL (0.0-4.0) 09/29/16 20:12 CK-MB (CK-2) Rel Index 0.8 (0-4) 09/29/16 20:12 Troponin T 0.204 ng/mL (0.00-0.029) H* 09/29/16 20:12 C-Reactive Protein 19.50 mg/dL (0.00-1.30) H 03/14/17 12:51 Total Protein 6.9 g/dL (6.3-8.2) 03/20/17 Unknown Albumin 0.9 g/dL (3.9-5) L 03/20/17 Unknown Albumin/Globulin Ratio 0.2 % 03/20/17 Unknown Prealbumin 0.110 g/L (0.200-0.400) L 12/29/16 05:15 Triglycerides 94 mg/dL (2-149) 03/20/17 Unknown Cholesterol 31 mg/dL (50-199) L 09/29/16 20:12 LDL Cholesterol Direct 4 mg/dL (50-130) L 09/29/16 20:12 HDL Cholesterol 3 mg/dL (40-59) L 09/29/16 20:12 Cholesterol/HDL Ratio 10.33 % 09/29/16 20:12 Angiotensin Convert Enz See scanned report 09/08/16 11:48 Renin 0.99 ng/mL/h (0.25-5.82) 10/07/16 10:56 Aldosterone <1 ng/dL () 10/07/16 10:56 Aldosterone/Renin Dir see below 10/07/16 10:56 Serotonin Release Assay See scanned report 09/29/16 13:35 25-OH Vitamin D Total 13 ng/mL (30-100) L 02/15/17 19:08 25-Hydroxy Vitamin D2 . 02/15/17 19:08 25-Hydroxy Vitamin D3 . 02/15/17 19:08 TSH 1.010 mlU/mL (0.270-4.200) 09/07/16 08:37 HCG, Qual Negative (Negative) 09/03/16 00:10 PTH Intact 10.88 pg/mL (15-65) L 02/15/17 19:08 Total Cortisol 18.2 mcg/dL () 02/02/17 20:09 Urine Color Yellow (Yellow) 11/05/16 13:09 Urine Turbidity Clear (Clear) 11/05/16 13:09 Urine pH 9.0 (5.0-7.0) H 11/05/16 13:09 Ur Specific [place] 1.011 (1.003-1.030) 11/05/16 13:09 Urine Protein 100 mg/dl mg/dL (Negative) 11/05/16 13:09 Urine Glucose (UA) Neg mg/dL (Negative) 11/05/16 13:09 Urine Ketones Neg mg/dL (Negative) 11/05/16 13:09 Urine Blood Neg (Negative) 11/05/16 13:09 Urine Nitrite Neg (Negative) 11/05/16 13:09 Urine Bilirubin Neg (Negative) 11/05/16 13:09 Urine Urobilinogen < 2.0 mg/dL (<2.0) 11/05/16 13:09 Ur Leukocyte Esterase Neg (Negative) 11/05/16 13:09 Urine WBC (Auto) 4.0 /HPF (0.0-6.0) 11/05/16 13:09 Urine RBC (Auto) 1.0 /HPF (0.0-6.0) 11/05/16 13:09 U Epithel Cells (Auto) 1.0 /HPF (0-13.0) 10/07/16 18:30 Urine Bacteria (Auto) 4+ /HPF (Negative) 11/05/16 13:09 Urine WBC Clumps 2+ /HPF 09/07/16 02:47 Hyaline Casts 4 /LPF 09/07/16 02:47 Urine Mucus Few /HPF 10/07/16 18:30 Urine Yeast (Budding) 3+ /HPF 10/07/16 18:30 Urine Eosinophils None seen (None Seen) 09/07/16 16:00 Urine Total Volume 950 11/12/16 10:18 Urine Creatinine 19.7 mg/dL (0.1-20.0) 11/12/16 10:18 Height (in) 65.0 inches 11/12/16 10:18 Weight (lb) 181.0 lbs 11/12/16 10:18 Creatinine Clearance 5 11/12/16 10:18 Urine Sodium 36 mEq/L 09/16/16 19:19 Urine Total Protein 16 mg/dL (5-11.8) H 09/16/16 19:19 Fluid Type Pleural 01/13/17 12:10 Fluid Color Yellow 01/13/17 12:10 Fluid Appearance Hazy 01/13/17 12:10 Fluid WBC 182 /mm3 01/13/17 12:10 Fluid RBC 41 /mm3 01/13/17 12:10 Fluid Seg Neutrophils 85.0 % 01/13/17 12:10 Fluid Lymphocytes 8.0 % 01/13/17 12:10 Fluid Reactive Lymphs 0 % 01/13/17 12:10 Fluid Monocytes 6.0 % 01/13/17 12:10 Fluid Eosinophils 1.0 % 01/13/17 12:10 Fluid Basophils 0 % 01/13/17 12:10 Fluid Total Protein 3.0 (15.0-45.0) L 01/13/17 12:10 Fluid LDH 1322 01/13/17 12:10 Fluid Comment Diff performed 01/13/17 12:10 Vancomycin Trough 2.3 ug/mL (5.0-20.0) L 09/21/16 13:00 Random Vancomycin 26.0 ug/mL (0-40.0) 03/13/17 05:39 Urine Opiates Screen Presumptive negative 09/03/16 15:11 Urine Methadone Screen Presumptive positive 09/03/16 15:11 Ur Barbiturates Screen Presumptive positive 09/03/16 15:11 Ur Phencyclidine Scrn Presumptive negative 09/03/16 15:11 Ur Amphetamines Screen Presumptive negative 09/03/16 15:11 U Benzodiazepines Scrn Presumptive negative 09/03/16 15:11 Urine Cocaine Screen Presumptive negative 09/03/16 15:11 U Marijuana (THC) Screen Presumptive positive 09/03/16 15:11 Drugs of Abuse Note Disclamer 09/03/16 15:11 Rheumatoid Factor 24 IU/ml (0-13) H 09/08/16 11:48 SAHIL Screen Negative (Negative) 09/07/16 09:20 Proteinase 3 (PR3) Ab <1.0 AI (<1.0) 09/07/16 09:20 Myeloperoxidase Ab <1.0 AI (<1.0) 09/07/16 09:20 Sjogren's Antibody <1.0 AI (<1.0) 09/08/16 15:35 Scl-70 Scleroderma Ab <1.0 AI (<1.0) 09/08/16 15:35 Centromere B Antibody <1.0 AI (<1.0) 09/08/16 12:02 Heparin-induced Plt Ab Negative (Negative) 09/29/16 13:35 UF Heparin High Dose 11 % Release 09/29/16 13:35 SUDHIR UFH Low Dose 0.1 6 % Release 09/29/16 13:35 SUDHIR UFH Low Dose 0.5 8 % Release 09/29/16 13:35 Cardiolipid IgG Ab <14 GPL (<=14) 09/12/16 09:59 Cardiolipid IgA Ab <11 APL (<=11) 09/12/16 09:59 Cardiolipid IgM Ab <12 MPL (<=12) 09/12/16 09:59 Complement C3 148 mg/dL (90-180) 09/07/16 09:20 Complement C4 58 mg/dL (16-47) H 09/07/16 09:20 RPR Nonreactive (Nonreactive) 09/08/16 11:48 Hepatitis A IgM Ab Non-reactive (NonReactive) 09/24/16 14:40 Hep Bs Antigen Non-reactive (Negative) 09/24/16 14:40 Hep B Core IgM Ab Non-reactive (NonReactive) 09/24/16 14:40 Hepatitis C Antibody Non-reactive (NonReactive) 09/24/16 14:40 HIV 1&2 Antibody Rapid Non react (Non React) 09/08/16 11:48 HIV P24 Antigen Non react (Non React) 09/08/16 11:48 Miscellaneous Test Flexitest 1 H 01/09/17 18:45 Blood Type A POSITIVE 03/20/17 16:00 Antibody Screen Negative 03/20/17 16:00 DELORIS Antibody Screen Negative 11/24/16 11:20 Crossmatch See Detail 03/20/17 16:00
[2017-03-27] MEDS: HEPARIN IV PRN (18:56)
[2017-03-27] MEDS ORDERED: INTRALIPID 20% 250 ML IV SCH (20:00)
[2017-03-27] MEDS ORDERED: TPN ADULT IV SCH (20:00)
[2017-03-28] MEDS: HumuLIN R SUB-Q SCH ×4 (00:11→18:06)
[2017-03-28] MEDS: LOPRESSOR IV SCH ×4 (00:11→20:00)
[2017-03-28] MEDS: CUBICIN IV SCH (00:28)
[2017-03-28] MEDS: NACL 0.9% IV SCH (00:28)
[2017-03-28] MEDS: ZOSYN/NS 2.25 GM/50ML 2.25 GM/50 ML BAG IV SCH ×3 (06:00→21:46)
--- NOTE | 2017-03-28 09:11 | Progress Note ---
Assessment and Plan - Patient Problems (1) JUANITA (acute kidney injury) Current Visit: Yes Status: Acute Plan to address problem: JUANITA with multiple medical problems-Dialysis dependent. Acute on chronic respiratory failure-ventilator dependent. Multiple comorbid conditions. S/P surgical debridement for sacral decubitus. Encephalopathy-same. Urine output remains poor. HD on M/W/F with UF as ordered. Supportive care. Consultants , Hospitalist notes reviewed. * Enterococcal bacteremia * Intraabdominal abscess * Perforated bowel * Sepsis * Acute CVA - left MCA with midline shift * s/p Cardiac arrest * Encephalopathy * Atrial fibrillation w/ RVR * Enteric fistula * Acute hypoxic respiratory failure * Anemia Plan: * Continue HD MWF -UF as tolerated. Abx per ID (2) Acute CVA (cerebrovascular accident) Current Visit: Yes Status: Acute (3) Acute respiratory failure with hypoxia Current Visit: Yes Status: Acute (4) Atrial fibrillation Current Visit: Yes Status: Chronic (5) Type 2 diabetes mellitus Current Visit: Yes Status: Chronic (6) Anemia Current Visit: No Status: Chronic Qualifiers: Anemia type: unspecified type Qualified Code(s): D64.9 - Anemia, unspecified (7) HTN (hypertension) Current Visit: Yes Status: Chronic (8) Diabetes Current Visit: Yes Status: Chronic Qualifiers: Diabetes mellitus type: type 2 Diabetes mellitus complication status: with hyperglycemia Subjective Date of service: 03/28/17 Principal diagnosis: Acute resp failure on MVS; S/P Acute CVA; Acute Encephalopathy; JUANITA Interval history: on ventilator via trach. Pt remains non communicative. Clinical condition same Objective - Vital Signs Vital signs: Vital Signs - 12hr 03/27/17 03/28/17 03/28/17 22:00 00:00 00:10 Temperature 97.7 F Pulse Rate 109 H 108 H 100 H Respiratory 15 14 Rate Blood Pressure 128/84 120/83 124/83 O2 Sat by Pulse 100 100 Oximetry O2 Sat by Pulse Oximetry [ Assessment] 03/28/17 03/28/17 03/28/17 00:11 02:00 02:20 Temperature Pulse Rate 87 96 H Respiratory 12 Rate Blood Pressure 106/56 97/69 O2 Sat by Pulse 100 Oximetry O2 Sat by Pulse 100 Oximetry [ Assessment] 03/28/17 03/28/17 03/28/17 04:00 04:10 06:00 Temperature 98.0 F Pulse Rate 104 H 99 H 97 H Respiratory 14 13 Rate Blood Pressure 125/80 125/80 107/76 O2 Sat by Pulse 100 100 100 Oximetry O2 Sat by Pulse Oximetry [ Assessment] 03/28/17 08:00 Temperature 98.0 F Pulse Rate 97 H Respiratory 15 Rate Blood Pressure 100/64 O2 Sat by Pulse 98 Oximetry O2 Sat by Pulse Oximetry [ Assessment] - General Appearance General appearance: chronically ill, intubated EENT: mucous membranes dry Neck: no JVD Respiratory: Present: Decreased Breath Sounds Cardiology: regular Gastrointestinal: normoactive bowel sounds - Lab 03/27/17 05:30 03/27/17 05:30 Most recent lab results ABG pH 7.450 pH Units (7.350-7.450) 12/05/16 Unknown ABG pCO2 29.6 mm Hg 12/05/16 Unknown ABG pO2 75.2 mm Hg (80.0-90.0) L 12/05/16 Unknown ABG HCO3 20.1 mmol/L (20.0-26.0) 12/05/16 Unknown ABG O2 Saturation 96.8 % (95.0-99.0) 12/05/16 Unknown Calcium 9.3 mg/dL (8.4-10.2) 03/27/17 05:30 Phosphorus 5.30 mg/dL (2.5-4.5) H 03/27/17 05:30 Magnesium 2.60 mg/dL (1.7-2.3) H 03/27/17 05:30 Urine Creatinine 19.7 mg/dL (0.1-20.0) 11/12/16 10:18 Urine Sodium 36 mEq/L 09/16/16 19:19 Urine Total Protein 16 mg/dL (5-11.8) H 09/16/16 19:19
[2017-03-28] MEDS: DUONEB *Not for PRN Use IH SCH ×3 (09:30→19:30)
[2017-03-28] MEDS: PEPCID IV SCH (09:40)
[2017-03-28] MEDS: HEPARIN SUB-Q SCH ×2 (09:41→21:47)
--- NOTE | 2017-03-28 10:18 | Progress Note ---
Assessment and Plan Assessment and plan: Patient is 46-year-old woman with a history of hypertension, diabetes, asthma, hyperlipidemia, chronic kidney disease and anxiety , who was brought in by family because, she couldn't get her words out, her face was also twisted, she was admitted for acute CVA and accelerated hypertension, she had a hx of poor adherence with her medications, and uncontrolled htn. Patient's SBP on admission was noted be greater than 260. TPA was started but this was discontinued after 5 minutes because her blood pressure became uncontrolled. Since then she was worsened and has not regained her mental status, has been in a persistent vegetative state. She has had multiple infections has had sepsis requiring multiple rounds of antibiotics. She is also suffered from peritonitis , for which NG tube was removed and patient has since been on TPN. Chest required multiple transfusions. Prognosis has been poor and patient has been worsening. Her brother elected to make her DO NOT RESUSCITATE. Status post cardiac arrest , 11/21/16 on Mechanical ventilation >96 hrs, > 6 months Vent Dependant Respiratory failure secondary to Anoxic Brain injury S/P Tracheostomy ESRD - on HD Acute CVA with infarct -Unfortunately she is not in a persistent vegetative state. Unable to tolerate secondary prevention meds as she is now strict TPN Persistent vegetative state - This patient's needs placement at SNF - She was denied for LTACH -Family meeting planned for Monday at 10 AM Nosocomial acquired aspiration pneumonia/sepsis/UTI/PERITONITIS (Perforated bowel) - Has completed multiple courses of abx, and has had A. fib with RVR -On amio drip, cannot change to PO due to persistent nausea and vomiting, NPO Diabetes type 2. -Continue sliding-scale regular insulin and Accu-Cheks. Hyperlipidemia -Currently unable to tolerate statins Severe Protein calorie Malnutrition/Adult failure to thrive - TPN Anemia requiring multiple transfusions/acute blood loss -stable, keep hg above 7 Sacral decubitus ulcer and multiple lower extremity decubiti - Status post debridement -Wound vac in place Disposition. Very poor prognosis. DNR - The high probability of a clinically significant, sudden or life threatening deterioration of the [neurologic, CV] system(s) required my full and direct attention, intervention and personal management. The aggregate critical care time was [35] minutes. This time is in addition to time spent performing reported procedures but includes the following: [x] Data Review and interpretation [x] Patient assessment and monitoring of vital signs [x] Documentation [x] Medication orders and management History Interval history: patient seen and examined, remains unresponsive on the ventilator. afebrile, no vomiting was tachypneic and tachycardic, overnight Hospitalist Physical - Physical exam Narrative exam: GEN: Ill appearing, trach, staring into space,, non purposeful movement NECK: SUPPLE, trach in place, ngt in place and to suction. CVS:Irregular Irregular with LUNGS/CHEST: NORMAL CHEST EXPANSION B, GOOD AIR ENTRY B, tachypena ABD: SOFT, no grimise on abdominal palpation, Ostomy bags at two side by side fistula site. GBS, NO REBOUND OR GUARDING, peg tube in place EXT/SKIN: NO SIGNIFICANT EDEMA BUT WITH UNSTAGEABLE SACRAL DECUB, MSK: +spontaneous non purposeful movement NEURO: on a ventilator and unresponsive despite being off sedation PSY: Comatose, - Constitutional Vitals: Temp Pulse Resp BP Pulse Ox 98.0 F 93 H 32 H 106/73 100 03/28/17 08:00 03/28/17 09:38 03/28/17 08:50 03/28/17 09:38 03/28/17 08:50 General appearance: Present: no acute distress, cachectic, other (spontaneous opening of eyes, unresponsive) Results - Labs CBC & Chem 7: 03/27/17 05:30 03/29/17 04:30 Labs: Laboratory Last Values WBC 5.5 K/mm3 (4.5-11.0) 03/27/17 05:30 RBC 2.95 M/mm3 (3.65-5.03) L 03/27/17 05:30 Hgb 8.9 gm/dl (10.1-14.3) L 03/27/17 05:30 Hct 28.7 % (30.3-42.9) L 03/27/17 05:30 MCV 97 fl (79-97) 03/27/17 05:30 MCH 30 pg (28-32) 03/27/17 05:30 MCHC 31 % (30-34) 03/27/17 05:30 RDW 24.4 % (13.2-15.2) H 03/27/17 05:30 Plt Count 156 K/mm3 (140-440) 03/27/17 05:30 Lymph % (Auto) 25.1 % (13.4-35.0) 03/27/17 05:30 Clinch % (Auto) 8.6 % (0.0-7.3) H 03/27/17 05:30 Eos % (Auto) 3.9 % (0.0-4.3) 03/27/17 05:30 Baso % (Auto) 1.5 % (0.0-1.8) 03/27/17 05:30 Lymph # 1.4 K/mm3 (1.2-5.4) 03/27/17 05:30 Clinch # 0.5 K/mm3 (0.0-0.8) 03/27/17 05:30 Eos # 0.2 K/mm3 (0.0-0.4) 03/27/17 05:30 Baso # 0.1 K/mm3 (0.0-0.1) 03/27/17 05:30 Add Manual Diff Complete 03/14/17 14:30 Total Counted 100 03/14/17 14:30 Seg Neutrophils % 60.9 % (40.0-70.0) 03/27/17 05:30 Seg Neuts % (Manual) 70.0 % (40.0-70.0) 03/14/17 14:30 Band Neutrophils % 0 % 03/14/17 14:30 Lymphocytes % (Manual) 13.0 % (13.4-35.0) L 03/14/17 14:30 Reactive Lymphs % (Man) 1.0 % 03/14/17 14:30 Monocytes % (Manual) 15.0 % (0.0-7.3) H 03/14/17 14:30 Eosinophils % (Manual) 1.0 % (0.0-4.3) 03/14/17 14:30 Basophils % (Manual) 0 % (0.0-1.8) 03/14/17 14:30 Metamyelocytes % 0 % 03/14/17 14:30 Myelocytes % 0 % 03/14/17 14:30 Promyelocytes % 0 % 03/14/17 14:30 Blast Cells % 0 % 03/14/17 14:30 Nucleated RBC % Not Reportable 03/14/17 14:30 Seg Neutrophils # 3.3 K/mm3 (1.8-7.7) 03/27/17 05:30 Seg Neutrophils # Man 12.3 K/mm3 (1.8-7.7) H 03/14/17 14:30 Band Neutrophils # 0.0 K/mm3 03/14/17 14:30 Lymphocytes # (Manual) 2.3 K/mm3 (1.2-5.4) 03/14/17 14:30 Abs React Lymphs (Man) 0.2 K/mm3 03/14/17 14:30 Monocytes # (Manual) 2.6 K/mm3 (0.0-0.8) H 03/14/17 14:30 Eosinophils # (Manual) 0.2 K/mm3 (0.0-0.4) 03/14/17 14:30 Basophils # (Manual) 0.0 K/mm3 (0.0-0.1) 03/14/17 14:30 Metamyelocytes # 0.0 K/mm3 03/14/17 14:30 Myelocytes # 0.0 K/mm3 03/14/17 14:30 Promyelocytes # 0.0 K/mm3 03/14/17 14:30 Blast Cells # 0.0 K/mm3 03/14/17 14:30 Pathologist Review 09/13/16 04:00 WBC Morphology Not Reportable 03/14/17 14:30 Hypersegmented Neuts Not Reportable 03/14/17 14:30 Hyposegmented Neuts Not Reportable 03/14/17 14:30 Hypogranular Neuts Not Reportable 03/14/17 14:30 Smudge Cells Not Reportable 03/14/17 14:30 Toxic Granulation Not Reportable 03/14/17 14:30 Toxic Vacuolation Not Reportable 03/14/17 14:30 Dohle Bodies Not Reportable 03/14/17 14:30 Pelger-Huet Anomaly Not Reportable 03/14/17 14:30 Jasmina Rods Not Reportable 03/14/17 14:30 Platelet Estimate Consistent w auto 03/14/17 14:30 Clumped Platelets Not Reportable 03/14/17 14:30 Plt Clumps, EDTA Not Reportable 03/14/17 14:30 Large Platelets Not Reportable 03/14/17 14:30 Giant Platelets Not Reportable 03/14/17 14:30 Platelet Satelliting Not Reportable 03/14/17 14:30 Plt Morphology Comment Not Reportable 03/14/17 14:30 RBC Morphology Not Reportable 03/14/17 14:30 Dimorphic RBCs Not Reportable 03/14/17 14:30 Polychromasia Not Reportable 03/14/17 14:30 Hypochromasia 2+ 03/14/17 14:30 Poikilocytosis Not Reportable 03/14/17 14:30 Anisocytosis 1+ 03/14/17 14:30 Microcytosis Not Reportable 03/14/17 14:30 Macrocytosis Not Reportable 03/14/17 14:30 Spherocytes Not Reportable 03/14/17 14:30 Pappenheimer Bodies Not Reportable 03/14/17 14:30 Sickle Cells Not Reportable 03/14/17 14:30 Target Cells Not Reportable 03/14/17 14:30 Tear Drop Cells Not Reportable 03/14/17 14:30 Ovalocytes Not Reportable 03/14/17 14:30 Stomatocytes 2+ 03/14/17 14:30 Helmet Cells Not Reportable 03/14/17 14:30 [place] Bodies Not Reportable 03/14/17 14:30 Goldsmith Rings Not Reportable 03/14/17 14:30 Chuck Cells Not Reportable 03/14/17 14:30 Bite Cells Not Reportable 03/14/17 14:30 Crenated Cell Not Reportable 03/14/17 14:30 Elliptocytes Not Reportable 03/14/17 14:30 Acanthocytes (Spur) Not Reportable 03/14/17 14:30 Rouleaux Not Reportable 03/14/17 14:30 Hemoglobin C Crystals Not Reportable 03/14/17 14:30 Schistocytes Not Reportable 03/14/17 14:30 Malaria parasites Not Reportable 03/14/17 14:30 ESR > 140.0 mm/Hr (0-20) 09/08/16 11:48 Jun Bodies Not Reportable 03/14/17 14:30 Hem Pathologist Commnt No 03/14/17 14:30 PT 15.4 Sec. (12.2-14.9) H 01/13/17 15:50 INR 1.16 (0.87-1.13) H 01/13/17 15:50 APTT 33.0 Sec. (24.2-36.6) 10/09/16 03:45 Thrombin Time 16.8 Sec. (15.1-19.6) 09/03/16 00:10 Fibrinogen 750 mg/dl (211-480) H 09/08/16 11:48 Lupus Anticoagulant see below 09/12/16 09:59 LA PTT Baseline See scanned report 09/12/16 09:59 dRVVT Confirm Interp Positive (Negative) H 09/12/16 09:59 dRVVT Screen 50:50 See scanned report 09/12/16 09:59 dRVVT Mix Interpret See scanned report 09/12/16 09:59 Protein C Antigen 122 % (70-140) 09/08/16 15:35 Free Protein S 97 % normal (50-147) 09/08/16 15:35 Total Protein S 109 % (70-140) 09/08/16 15:35 Antithrombin III Ag 100 % (80-120) 09/08/16 15:35 Heparin Anti-Xa, Unfract Negative (Negative) 09/29/16 13:35 Factor V Activity 182 % (65-150) H 09/08/16 15:35 POC ABG pH 7.518 (7.35-7.45) H 03/03/17 20: ABG pH 7.450 pH Units (7.350-7.450) 12/05/16 Unknown POC ABG pCO2 28.8 (35-45) L 03/03/17 20: ABG pCO2 29.6 mm Hg 12/05/16 Unknown POC ABG pO2 61 (80-105) L 03/03/17: ABG pO2 75.2 mm Hg (80.0-90.0) L 12/05/16 Unknown POC ABG HCO3 23.4 03/03/17 20: ABG HCO3 20.1 mmol/L (20.0-26.0) 12/05/16 Unknown POC ABG Total CO2 24 03/03/17 20: POC ABG O2 Sat 94 03/03/17 20: ABG O2 Saturation 96.8 % (95.0-99.0) 12/05/16 Unknown ABG O2 Content 9.9 (0.0-44) 12/05/16 Unknown POC ABG Base Excess 0 03/03/17 20:17 ABG Base Excess -3.4 mmol/L (-2.0-3.0) L 12/05/16 Unknown ABG Hemoglobin 7.4 gm/dl (12.0-16.0) L 12/05/16 Unknown ABG Carboxyhemoglobin 1.8 % (0.0-5.0) 12/05/16 Unknown ABG Methemoglobin 0.6 % (0.0-1.5) 12/05/16 Unknown Oxyhemoglobin 94.5 % (95.0-99.0) L 12/05/16 Unknown FiO2 40 % 03/03/17 20:17 Sodium 138 mmol/L (137-145) 03/27/17 05:30 Potassium 3.9 mmol/L (3.6-5.0) 03/27/17 05:30 Chloride 96.9 mmol/L (98-107) L 03/27/17 05:30 Carbon Dioxide 29 mmol/L (22-30) 03/27/17 05:30 Anion Gap 16 mmol/L 03/27/17 05:30 BUN 29 mg/dL (7-17) H 03/27/17 05:30 Creatinine 2.5 mg/dL (0.7-1.2) H 03/27/17 05:30 Estimated GFR 25 ml/min 03/27/17 05:30 BUN/Creatinine Ratio 12 % 03/27/17 05:30 Glucose 102 mg/dL (65-100) H 03/27/17 05:30 POC Glucose 116 (70-105) H 03/28/17 05:46 Osmolality 351 Mosm/kg 09/16/16 11:47 Lactic Acid 2.30 mmol/L (0.7-2.0) H* 01/09/17 08:22 Calcium 9.3 mg/dL (8.4-10.2) 03/27/17 05:30 Ionized Calcium 6.0 mg/dL (4.8-5.6) H 02/15/17 19:08 Phosphorus 5.30 mg/dL (2.5-4.5) H 03/27/17 05:30 Magnesium 2.60 mg/dL (1.7-2.3) H 03/27/17 05:30 Total Bilirubin 0.40 mg/dL (0.1-1.2) 03/20/17 Unknown Direct Bilirubin 0.2 mg/dL (0-0.2) 01/28/17 04:00 Indirect Bilirubin 0.3 mg/dL 01/28/17 04:00 AST 11 units/L (5-40) 03/20/17 Unknown ALT 6 units/L (7-56) L 03/20/17 Unknown Alkaline Phosphatase 97 units/L (35-129) 03/20/17 Unknown Ammonia 27.0 umol/L (25-60) 09/07/16 08:37 Lactate Dehydrogenase 170 units/L (91-180) 01/13/17 15:50 Total Creatine Kinase 121 units/L (30-135) 09/29/16 20:12 CK-MB (CK-2) < 1.0 ng/mL (0.0-4.0) 09/29/16 20:12 CK-MB (CK-2) Rel Index 0.8 (0-4) 09/29/16 20:12 Troponin T 0.204 ng/mL (0.00-0.029) H* 09/29/16 20:12 C-Reactive Protein 19.50 mg/dL (0.00-1.30) H 03/14/17 12:51 Total Protein 6.9 g/dL (6.3-8.2) 03/20/17 Unknown Albumin 0.9 g/dL (3.9-5) L 03/20/17 Unknown Albumin/Globulin Ratio 0.2 % 03/20/17 Unknown Prealbumin 0.110 g/L (0.200-0.400) L 12/29/16 05:15 Triglycerides 94 mg/dL (2-149) 03/20/17 Unknown Cholesterol 31 mg/dL (50-199) L 09/29/16 20:12 LDL Cholesterol Direct 4 mg/dL (50-130) L 09/29/16 20:12 HDL Cholesterol 3 mg/dL (40-59) L 09/29/16 20:12 Cholesterol/HDL Ratio 10.33 % 09/29/16 20:12 Angiotensin Convert Enz See scanned report 09/08/16 11:48 Renin 0.99 ng/mL/h (0.25-5.82) 10/07/16 10:56 Aldosterone <1 ng/dL () 10/07/16 10:56 Aldosterone/Renin Dir see below 10/07/16 10:56 Serotonin Release Assay See scanned report 09/29/16 13:35 25-OH Vitamin D Total 13 ng/mL (30-100) L 02/15/17 19:08 25-Hydroxy Vitamin D2 . 02/15/17 19:08 25-Hydroxy Vitamin D3 . 02/15/17 19:08 TSH 1.010 mlU/mL (0.270-4.200) 09/07/16 08:37 HCG, Qual Negative (Negative) 09/03/16 00:10 PTH Intact 10.88 pg/mL (15-65) L 02/15/17 19:08 Total Cortisol 18.2 mcg/dL () 02/02/17 20:09 Urine Color Yellow (Yellow) 11/05/16 13:09 Urine Turbidity Clear (Clear) 11/05/16 13:09 Urine pH 9.0 (5.0-7.0) H 11/05/16 13:09 Ur Specific [place] 1.011 (1.003-1.030) 11/05/16 13:09 Urine Protein 100 mg/dl mg/dL (Negative) 11/05/16 13:09 Urine Glucose (UA) Neg mg/dL (Negative) 11/05/16 13:09 Urine Ketones Neg mg/dL (Negative) 11/05/16 13:09 Urine Blood Neg (Negative) 11/05/16 13:09 Urine Nitrite Neg (Negative) 11/05/16 13:09 Urine Bilirubin Neg (Negative) 11/05/16 13:09 Urine Urobilinogen < 2.0 mg/dL (<2.0) 11/05/16 13:09 Ur Leukocyte Esterase Neg (Negative) 11/05/16 13:09 Urine WBC (Auto) 4.0 /HPF (0.0-6.0) 11/05/16 13:09 Urine RBC (Auto) 1.0 /HPF (0.0-6.0) 11/05/16 13:09 U Epithel Cells (Auto) 1.0 /HPF (0-13.0) 10/07/16 18:30 Urine Bacteria (Auto) 4+ /HPF (Negative) 11/05/16 13:09 Urine WBC Clumps 2+ /HPF 09/07/16 02:47 Hyaline Casts 4 /LPF 09/07/16 02:47 Urine Mucus Few /HPF 10/07/16 18:30 Urine Yeast (Budding) 3+ /HPF 10/07/16 18:30 Urine Eosinophils None seen (None Seen) 09/07/16 16:00 Urine Total Volume 950 11/12/16 10:18 Urine Creatinine 19.7 mg/dL (0.1-20.0) 11/12/16 10:18 Height (in) 65.0 inches 11/12/16 10:18 Weight (lb) 181.0 lbs 11/12/16 10:18 Creatinine Clearance 5 11/12/16 10:18 Urine Sodium 36 mEq/L 09/16/16 19:19 Urine Total Protein 16 mg/dL (5-11.8) H 09/16/16 19:19 Fluid Type Pleural 01/13/17 12:10 Fluid Color Yellow 01/13/17 12:10 Fluid Appearance Hazy 01/13/17 12:10 Fluid WBC 182 /mm3 01/13/17 12:10 Fluid RBC 41 /mm3 01/13/17 12:10 Fluid Seg Neutrophils 85.0 % 01/13/17 12:10 Fluid Lymphocytes 8.0 % 01/13/17 12:10 Fluid Reactive Lymphs 0 % 01/13/17 12:10 Fluid Monocytes 6.0 % 01/13/17 12:10 Fluid Eosinophils 1.0 % 01/13/17 12:10 Fluid Basophils 0 % 01/13/17 12:10 Fluid Total Protein 3.0 (15.0-45.0) L 01/13/17 12:10 Fluid LDH 1322 01/13/17 12:10 Fluid Comment Diff performed 01/13/17 12:10 Vancomycin Trough 2.3 ug/mL (5.0-20.0) L 09/21/16 13:00 Random Vancomycin 26.0 ug/mL (0-40.0) 03/13/17 05:39 Urine Opiates Screen Presumptive negative 09/03/16 15:11 Urine Methadone Screen Presumptive positive 09/03/16 15:11 Ur Barbiturates Screen Presumptive positive 09/03/16 15:11 Ur Phencyclidine Scrn Presumptive negative 09/03/16 15:11 Ur Amphetamines Screen Presumptive negative 09/03/16 15:11 U Benzodiazepines Scrn Presumptive negative 09/03/16 15:11 Urine Cocaine Screen Presumptive negative 09/03/16 15:11 U Marijuana (THC) Screen Presumptive positive 09/03/16 15:11 Drugs of Abuse Note Disclamer 09/03/16 15:11 Rheumatoid Factor 24 IU/ml (0-13) H 09/08/16 11:48 SAHIL Screen Negative (Negative) 09/07/16 09:20 Proteinase 3 (PR3) Ab <1.0 AI (<1.0) 09/07/16 09:20 Myeloperoxidase Ab <1.0 AI (<1.0) 09/07/16 09:20 Sjogren's Antibody <1.0 AI (<1.0) 09/08/16 15:35 Scl-70 Scleroderma Ab <1.0 AI (<1.0) 09/08/16 15:35 Centromere B Antibody <1.0 AI (<1.0) 09/08/16 12:02 Heparin-induced Plt Ab Negative (Negative) 09/29/16 13:35 UF Heparin High Dose 11 % Release 09/29/16 13:35 SUDHIR UFH Low Dose 0.1 6 % Release 09/29/16 13:35 SUDHIR UFH Low Dose 0.5 8 % Release 09/29/16 13:35 Cardiolipid IgG Ab <14 GPL (<=14) 09/12/16 09:59 Cardiolipid IgA Ab <11 APL (<=11) 09/12/16 09:59 Cardiolipid IgM Ab <12 MPL (<=12) 09/12/16 09:59 Complement C3 148 mg/dL (90-180) 09/07/16 09:20 Complement C4 58 mg/dL (16-47) H 09/07/16 09:20 RPR Nonreactive (Nonreactive) 09/08/16 11:48 Hepatitis A IgM Ab Non-reactive (NonReactive) 09/24/16 14:40 Hep Bs Antigen Non-reactive (Negative) 09/24/16 14:40 Hep B Core IgM Ab Non-reactive (NonReactive) 09/24/16 14:40 Hepatitis C Antibody Non-reactive (NonReactive) 09/24/16 14:40 HIV 1&2 Antibody Rapid Non react (Non React) 09/08/16 11:48 HIV P24 Antigen Non react (Non React) 09/08/16 11:48 Miscellaneous Test Flexitest 1 H 01/09/17 18:45 Blood Type A POSITIVE 03/20/17 16:00 Antibody Screen Negative 03/20/17 16:00 DELORIS Antibody Screen Negative 11/24/16 11:20 Crossmatch See Detail 03/20/17 16:00
[2017-03-28] MEDS: TRANSDERM-SCOP TD SCH (18:51)
[2017-03-28] MEDS ORDERED: TPN ADULT IV SCH (20:00)
[2017-03-29] MEDS: HumuLIN R SUB-Q SCH ×4 (00:02→18:20)
[2017-03-29] MEDS: LOPRESSOR IV SCH ×4 (01:49→18:18)
[2017-03-29 05:19] LABS: Calcium 8.9 mg/dL (8.4-10.2)
[2017-03-29] MEDS: ZOSYN/NS 2.25 GM/50ML 2.25 GM/50 ML BAG IV SCH ×3 (06:58→21:23)
[2017-03-29] MEDS: DUONEB *Not for PRN Use IH SCH ×3 (09:26→20:27)
--- NOTE | 2017-03-29 09:35 | Progress Note ---
Assessment and Plan - Patient Problems (1) JUANITA (acute kidney injury) Current Visit: Yes Status: Acute Plan to address problem: JUANITA with multiple medical problems-Dialysis dependent. Acute on chronic respiratory failure-ventilator dependent. Multiple comorbid conditions. S/P surgical debridement for sacral decubitus. Encephalopathy-same. Urine output remains poor. Scr 2.4--hold HD today. Supportive care. Consultants , Hospitalist notes reviewed. * Enterococcal bacteremia * Intraabdominal abscess * Perforated bowel * Sepsis * Acute CVA - left MCA with midline shift * s/p Cardiac arrest * Encephalopathy * Atrial fibrillation w/ RVR * Enteric fistula * Acute hypoxic respiratory failure * Anemia Plan: * Continue HD MWF -UF as tolerated. Abx per ID (2) Acute CVA (cerebrovascular accident) Current Visit: Yes Status: Acute (3) Acute respiratory failure with hypoxia Current Visit: Yes Status: Acute (4) Atrial fibrillation Current Visit: Yes Status: Chronic (5) Type 2 diabetes mellitus Current Visit: Yes Status: Chronic (6) Anemia Current Visit: No Status: Chronic Qualifiers: Anemia type: unspecified type Qualified Code(s): D64.9 - Anemia, unspecified (7) HTN (hypertension) Current Visit: Yes Status: Chronic (8) Diabetes Current Visit: Yes Status: Chronic Qualifiers: Diabetes mellitus type: type 2 Diabetes mellitus complication status: with hyperglycemia Subjective Date of service: 03/29/17 Principal diagnosis: Acute resp failure on MVS; S/P Acute CVA; Acute Encephalopathy; JUANITA Interval history: on ventilator via trach. Pt remains non communicative. Clinical condition same Objective - Vital Signs Vital signs: Vital Signs - 12hr 03/28/17 03/28/17 03/29/17 22:01 23:30 00:00 Temperature 98.3 F Pulse Rate 105 H 109 H Pulse Rate [ From Monitor] Respiratory 22 29 H Rate Blood Pressure 117/86 128/85 O2 Sat by Pulse 88 100 Oximetry O2 Sat by Pulse 100 Oximetry [ Assessment] 03/29/17 03/29/17 03/29/17 01:49 02:01 03:25 Temperature Pulse Rate 102 H 91 H 91 H Pulse Rate [ From Monitor] Respiratory 29 H Rate Blood Pressure 128/85 128/85 O2 Sat by Pulse 100 Oximetry O2 Sat by Pulse Oximetry [ Assessment] 03/29/17 03/29/17 03/29/17 03:30 04:00 06:01 Temperature 98.8 F Pulse Rate 101 H 103 H Pulse Rate [ From Monitor] Respiratory 28 H 25 H Rate Blood Pressure 109/67 109/67 O2 Sat by Pulse 100 99 Oximetry O2 Sat by Pulse Oximetry [ Assessment] 03/29/17 03/29/17 08:00 08:23 Temperature 98.5 F Pulse Rate 100 H 95 H Pulse Rate [ 95 H From Monitor] Respiratory 26 H Rate Blood Pressure 108/71 108/71 O2 Sat by Pulse 99 Oximetry O2 Sat by Pulse Oximetry [ Assessment] - General Appearance General appearance: chronically ill, intubated EENT: mucous membranes dry Neck: no JVD Respiratory: Present: Decreased Breath Sounds Cardiology: regular Gastrointestinal: normoactive bowel sounds - Lab 03/27/17 05:30 03/29/17 04:30 Most recent lab results ABG pH 7.450 pH Units (7.350-7.450) 12/05/16 Unknown ABG pCO2 29.6 mm Hg 12/05/16 Unknown ABG pO2 75.2 mm Hg (80.0-90.0) L 12/05/16 Unknown ABG HCO3 20.1 mmol/L (20.0-26.0) 12/05/16 Unknown ABG O2 Saturation 96.8 % (95.0-99.0) 12/05/16 Unknown Calcium 8.9 mg/dL (8.4-10.2) 03/29/17 04:30 Phosphorus 3.90 mg/dL (2.5-4.5) 03/29/17 04:30 Magnesium 2.20 mg/dL (1.7-2.3) 03/29/17 04:30 Urine Creatinine 19.7 mg/dL (0.1-20.0) 11/12/16 10:18 Urine Sodium 36 mEq/L 09/16/16 19:19 Urine Total Protein 16 mg/dL (5-11.8) H 09/16/16 19:19
[2017-03-29] MEDS: HEPARIN SUB-Q SCH ×2 (11:19→21:24)
[2017-03-29] MEDS: PEPCID IV SCH (11:19)
[2017-03-29] MEDS: CORDARONE 900 MG in D5W 482 ML IV SCH (11:20)
[2017-03-29] MEDS: DURAGESIC TD SCH (13:14)
[2017-03-29] MEDS ORDERED: INTRALIPID 20% 250 ML IV SCH (20:00)
[2017-03-29] MEDS ORDERED: TPN ADULT IV SCH (20:00)
[2017-03-29] MEDS: NACL 0.9% IV SCH (21:23)
[2017-03-29] MEDS: CUBICIN IV SCH (21:23)
[2017-03-30] MEDS: HumuLIN R SUB-Q SCH ×4 (00:09→18:21)
[2017-03-30] MEDS: LOPRESSOR IV SCH ×5 (00:12→23:49)
--- NOTE | 2017-03-30 09:30 | Progress Note ---
Assessment and Plan - Patient Problems (1) JUANITA (acute kidney injury) Current Visit: Yes Status: Acute Plan to address problem: JUANITA with multiple medical problems-Dialysis dependent. Acute on chronic respiratory failure-ventilator dependent. Multiple comorbid conditions. S/P surgical debridement for sacral decubitus. Encephalopathy-same. Urine output remains poor. Supportive care. Consultants , Hospitalist notes reviewed. * Enterococcal bacteremia * Intraabdominal abscess * Perforated bowel * Sepsis * Acute CVA - left MCA with midline shift * s/p Cardiac arrest * Encephalopathy * Atrial fibrillation * Enteric fistula * Acute hypoxic respiratory failure * Anemia Plan: * Continue HD M and F -UF as tolerated. Abx per ID (2) Acute CVA (cerebrovascular accident) Current Visit: Yes Status: Acute (3) Acute respiratory failure with hypoxia Current Visit: Yes Status: Acute (4) Atrial fibrillation Current Visit: Yes Status: Chronic (5) Type 2 diabetes mellitus Current Visit: Yes Status: Chronic (6) Anemia Current Visit: No Status: Chronic Qualifiers: Anemia type: unspecified type Qualified Code(s): D64.9 - Anemia, unspecified (7) HTN (hypertension) Current Visit: Yes Status: Chronic (8) Diabetes Current Visit: Yes Status: Chronic Qualifiers: Diabetes mellitus type: type 2 Diabetes mellitus complication status: with hyperglycemia Subjective Date of service: 03/30/17 Principal diagnosis: Acute resp failure on MVS; S/P Acute CVA; Acute Encephalopathy; JUANITA Interval history: on ventilator via trach. Pt remains non communicative. Clinical condition same. Chart reviewed. Spoke with pt's nurse Objective - Vital Signs Vital signs: Vital Signs - 12hr 03/29/17 03/29/17 03/30/17 22:01 23:45 00:00 Temperature 97.1 F L Pulse Rate 91 H 84 Respiratory 12 14 Rate Blood Pressure 118/86 124/75 O2 Sat by Pulse 100 100 Oximetry 03/30/17 03/30/17 03/30/17 00:12 01:37 02:01 Temperature Pulse Rate 92 H 92 H 89 Respiratory 15 Rate Blood Pressure 124/75 124/75 O2 Sat by Pulse 100 Oximetry 03/30/17 03/30/17 03/30/17 03:27 04:00 05:15 Temperature 97.1 F L 97.1 F L Pulse Rate 92 H 92 H Respiratory 18 Rate Blood Pressure 107/76 107/76 O2 Sat by Pulse 100 93 Oximetry 03/30/17 03/30/17 03/30/17 06:01 06:39 08:00 Temperature Pulse Rate 91 H 91 H 94 H Respiratory 13 16 Rate Blood Pressure 107/76 107/76 98/69 O2 Sat by Pulse 100 91 Oximetry - General Appearance General appearance: chronically ill, intubated EENT: mucous membranes dry Neck: no JVD Respiratory: Present: Decreased Breath Sounds Cardiology: irregular Gastrointestinal: normoactive bowel sounds - Lab 03/27/17 05:30 03/29/17 04:30 Most recent lab results ABG pH 7.450 pH Units (7.350-7.450) 12/05/16 Unknown ABG pCO2 29.6 mm Hg 12/05/16 Unknown ABG pO2 75.2 mm Hg (80.0-90.0) L 12/05/16 Unknown ABG HCO3 20.1 mmol/L (20.0-26.0) 12/05/16 Unknown ABG O2 Saturation 96.8 % (95.0-99.0) 12/05/16 Unknown Calcium 8.9 mg/dL (8.4-10.2) 03/29/17 04:30 Phosphorus 3.90 mg/dL (2.5-4.5) 03/29/17 04:30 Magnesium 2.20 mg/dL (1.7-2.3) 03/29/17 04:30 Urine Creatinine 19.7 mg/dL (0.1-20.0) 11/12/16 10:18 Urine Sodium 36 mEq/L 09/16/16 19:19 Urine Total Protein 16 mg/dL (5-11.8) H 09/16/16 19:19
[2017-03-30] MEDS: PEPCID IV SCH (09:56)
[2017-03-30] MEDS: HEPARIN SUB-Q SCH ×2 (09:57→22:38)
[2017-03-30] MEDS: DUONEB *Not for PRN Use IH SCH ×3 (10:12→20:05)
--- NOTE | 2017-03-30 17:07 | Progress Note ---
Assessment and Plan Assessment and plan: Patient is 46-year-old woman with a history of hypertension, diabetes, asthma, hyperlipidemia, chronic kidney disease and anxiety , who was brought in by family because, she couldn't get her words out, her face was also twisted, she was admitted for acute CVA and accelerated hypertension, she had a hx of poor adherence with her medications, and uncontrolled htn. Patient's SBP on admission was noted be greater than 260. TPA was started but this was discontinued after 5 minutes because her blood pressure became uncontrolled. Since then she was worsened and has not regained her mental status, has been in a persistent vegetative state. She has had multiple infections has had sepsis requiring multiple rounds of antibiotics. She is also suffered from peritonitis , for which NG tube was removed and patient has since been on TPN. Chest required multiple transfusions. Prognosis has been poor and patient has been worsening. Her brother elected to make her DO NOT RESUSCITATE. Status post cardiac arrest , 11/21/16 on Mechanical ventilation >96 hrs, > 6 months Vent Dependant Respiratory failure secondary to Anoxic Brain injury S/P Tracheostomy ESRD - on HD Acute CVA with infarct -Unfortunately she is not in a persistent vegetative state. Unable to tolerate secondary prevention meds as she is now strict TPN Persistent vegetative state - This patient's needs placement at SNF - She was denied for LTACH -Family meeting planned for Monday at 10 AM Nosocomial acquired aspiration pneumonia/sepsis/UTI/PERITONITIS (Perforated bowel) - Has completed multiple courses of abx, and has had A. fib with RVR -On amio drip, cannot change to PO due to persistent nausea and vomiting, NPO Diabetes type 2. -Continue sliding-scale regular insulin and Accu-Cheks. Hyperlipidemia -Currently unable to tolerate statins Severe Protein calorie Malnutrition/Adult failure to thrive - TPN Anemia requiring multiple transfusions/acute blood loss -stable, keep hg above 7 Sacral decubitus ulcer and multiple lower extremity decubiti - Status post debridement -Wound vac in place Disposition. Very poor prognosis. DNR - The high probability of a clinically significant, sudden or life threatening deterioration of the [neurologic, CV] system(s) required my full and direct attention, intervention and personal management. The aggregate critical care time was [35] minutes. This time is in addition to time spent performing reported procedures but includes the following: [x] Data Review and interpretation [x] Patient assessment and monitoring of vital signs [x] Documentation [x] Medication orders and management History Interval history: patient seen and examined, remains unresponsive on the ventilator. afebrile, no vomiting was tachypneic and tachycardic, overnight Hospitalist Physical - Physical exam Narrative exam: GEN: Ill appearing, trach, staring into space,, non purposeful movement NECK: SUPPLE, trach in place, ngt in place and to suction. CVS:Irregular Irregular with LUNGS/CHEST: NORMAL CHEST EXPANSION B, GOOD AIR ENTRY B, tachypena ABD: SOFT, no grimise on abdominal palpation, Ostomy bags at two side by side fistula site. GBS, NO REBOUND OR GUARDING, peg tube in place EXT/SKIN: NO SIGNIFICANT EDEMA BUT WITH UNSTAGEABLE SACRAL DECUB, MSK: +spontaneous non purposeful movement NEURO: on a ventilator and unresponsive despite being off sedation PSY: Comatose, - Constitutional Vitals: Temp Pulse Resp BP Pulse Ox 97.9 F 82 17 122/81 100 03/30/17 08:00 03/30/17 14:10 03/30/17 14:10 03/30/17 12:46 03/30/17 14:08 General appearance: Present: no acute distress, cachectic, other (spontaneous opening of eyes, unresponsive) Results - Labs CBC & Chem 7: 03/27/17 05:30 03/29/17 04:30 Labs: Laboratory Last Values WBC 5.5 K/mm3 (4.5-11.0) 03/27/17 05:30 RBC 2.95 M/mm3 (3.65-5.03) L 03/27/17 05:30 Hgb 8.9 gm/dl (10.1-14.3) L 03/27/17 05:30 Hct 28.7 % (30.3-42.9) L 03/27/17 05:30 MCV 97 fl (79-97) 03/27/17 05:30 MCH 30 pg (28-32) 03/27/17 05:30 MCHC 31 % (30-34) 03/27/17 05:30 RDW 24.4 % (13.2-15.2) H 03/27/17 05:30 Plt Count 156 K/mm3 (140-440) 03/27/17 05:30 Lymph % (Auto) 25.1 % (13.4-35.0) 03/27/17 05:30 [place] % (Auto) 8.6 % (0.0-7.3) H 03/27/17 05:30 Eos % (Auto) 3.9 % (0.0-4.3) 03/27/17 05:30 Baso % (Auto) 1.5 % (0.0-1.8) 03/27/17 05:30 Lymph # 1.4 K/mm3 (1.2-5.4) 03/27/17 05:30 [place] # 0.5 K/mm3 (0.0-0.8) 03/27/17 05:30 Eos # 0.2 K/mm3 (0.0-0.4) 03/27/17 05:30 Baso # 0.1 K/mm3 (0.0-0.1) 03/27/17 05:30 Add Manual Diff Complete 03/14/17 14:30 Total Counted 100 03/14/17 14:30 Seg Neutrophils % 60.9 % (40.0-70.0) 03/27/17 05:30 Seg Neuts % (Manual) 70.0 % (40.0-70.0) 03/14/17 14:30 Band Neutrophils % 0 % 03/14/17 14:30 Lymphocytes % (Manual) 13.0 % (13.4-35.0) L 03/14/17 14:30 Reactive Lymphs % (Man) 1.0 % 03/14/17 14:30 Monocytes % (Manual) 15.0 % (0.0-7.3) H 03/14/17 14:30 Eosinophils % (Manual) 1.0 % (0.0-4.3) 03/14/17 14:30 Basophils % (Manual) 0 % (0.0-1.8) 03/14/17 14:30 Metamyelocytes % 0 % 03/14/17 14:30 Myelocytes % 0 % 03/14/17 14:30 Promyelocytes % 0 % 03/14/17 14:30 Blast Cells % 0 % 03/14/17 14:30 Nucleated RBC % Not Reportable 03/14/17 14:30 Seg Neutrophils # 3.3 K/mm3 (1.8-7.7) 03/27/17 05:30 Seg Neutrophils # Man 12.3 K/mm3 (1.8-7.7) H 03/14/17 14:30 Band Neutrophils # 0.0 K/mm3 03/14/17 14:30 Lymphocytes # (Manual) 2.3 K/mm3 (1.2-5.4) 03/14/17 14:30 Abs React Lymphs (Man) 0.2 K/mm3 03/14/17 14:30 Monocytes # (Manual) 2.6 K/mm3 (0.0-0.8) H 03/14/17 14:30 Eosinophils # (Manual) 0.2 K/mm3 (0.0-0.4) 03/14/17 14:30 Basophils # (Manual) 0.0 K/mm3 (0.0-0.1) 03/14/17 14:30 Metamyelocytes # 0.0 K/mm3 03/14/17 14:30 Myelocytes # 0.0 K/mm3 03/14/17 14:30 Promyelocytes # 0.0 K/mm3 03/14/17 14:30 Blast Cells # 0.0 K/mm3 03/14/17 14:30 Pathologist Review 09/13/16 04:00 WBC Morphology Not Reportable 03/14/17 14:30 Hypersegmented Neuts Not Reportable 03/14/17 14:30 Hyposegmented Neuts Not Reportable 03/14/17 14:30 Hypogranular Neuts Not Reportable 03/14/17 14:30 Smudge Cells Not Reportable 03/14/17 14:30 Toxic Granulation Not Reportable 03/14/17 14:30 Toxic Vacuolation Not Reportable 03/14/17 14:30 Dohle Bodies Not Reportable 03/14/17 14:30 Pelger-Huet Anomaly Not Reportable 03/14/17 14:30 Jasmina Rods Not Reportable 03/14/17 14:30 Platelet Estimate Consistent w auto 03/14/17 14:30 Clumped Platelets Not Reportable 03/14/17 14:30 Plt Clumps, EDTA Not Reportable 03/14/17 14:30 Large Platelets Not Reportable 03/14/17 14:30 Giant Platelets Not Reportable 03/14/17 14:30 Platelet Satelliting Not Reportable 03/14/17 14:30 Plt Morphology Comment Not Reportable 03/14/17 14:30 RBC Morphology Not Reportable 03/14/17 14:30 Dimorphic RBCs Not Reportable 03/14/17 14:30 Polychromasia Not Reportable 03/14/17 14:30 Hypochromasia 2+ 03/14/17 14:30 Poikilocytosis Not Reportable 03/14/17 14:30 Anisocytosis 1+ 03/14/17 14:30 Microcytosis Not Reportable 03/14/17 14:30 Macrocytosis Not Reportable 03/14/17 14:30 Spherocytes Not Reportable 03/14/17 14:30 Pappenheimer Bodies Not Reportable 03/14/17 14:30 Sickle Cells Not Reportable 03/14/17 14:30 Target Cells Not Reportable 03/14/17 14:30 Tear Drop Cells Not Reportable 03/14/17 14:30 Ovalocytes Not Reportable 03/14/17 14:30 Stomatocytes 2+ 03/14/17 14:30 Helmet Cells Not Reportable 03/14/17 14:30 [place] Bodies Not Reportable 03/14/17 14:30 [place] Rings Not Reportable 03/14/17 14:30 [place] Cells Not Reportable 03/14/17 14:30 Bite Cells Not Reportable 03/14/17 14:30 Crenated Cell Not Reportable 03/14/17 14:30 Elliptocytes Not Reportable 03/14/17 14:30 Acanthocytes (Spur) Not Reportable 03/14/17 14:30 Rouleaux Not Reportable 03/14/17 14:30 Hemoglobin C Crystals Not Reportable 03/14/17 14:30 Schistocytes Not Reportable 03/14/17 14:30 Malaria parasites Not Reportable 03/14/17 14:30 ESR > 140.0 mm/Hr (0-20) 09/08/16 11:48 Jun Bodies Not Reportable 03/14/17 14:30 Hem Pathologist Commnt No 03/14/17 14:30 PT 15.4 Sec. (12.2-14.9) H 01/13/17 15:50 INR 1.16 (0.87-1.13) H 01/13/17 15:50 APTT 33.0 Sec. (24.2-36.6) 10/09/16 03:45 Thrombin Time 16.8 Sec. (15.1-19.6) 09/03/16 00:10 Fibrinogen 750 mg/dl (211-480) H 09/08/16 11:48 Lupus Anticoagulant see below 09/12/16 09:59 LA PTT Baseline See scanned report 09/12/16 09:59 dRVVT Confirm Interp Positive (Negative) H 09/12/16 09:59 dRVVT Screen 50:50 See scanned report 09/12/16 09:59 dRVVT Mix Interpret See scanned report 09/12/16 09:59 Protein C Antigen 122 % (70-140) 09/08/16 15:35 Free Protein S 97 % normal (50-147) 09/08/16 15:35 Total Protein S 109 % (70-140) 09/08/16 15:35 Antithrombin III Ag 100 % (80-120) 09/08/16 15:35 Heparin Anti-Xa, Unfract Negative (Negative) 09/29/16 13:35 Factor V Activity 182 % (65-150) H 09/08/16 15:35 POC ABG pH 7.518 (7.35-7.45) H 03/03/17 20:17 ABG pH 7.450 pH Units (7.350-7.450) 12/05/16 Unknown POC ABG pCO2 28.8 (35-45) L 03/03/17 20: ABG pCO2 29.6 mm Hg 12/05/16 Unknown POC ABG pO2 61 (80-105) L 03/03/17: ABG pO2 75.2 mm Hg (80.0-90.0) L 12/05/16 Unknown POC ABG HCO3 23.4 03/03/17 20: ABG HCO3 20.1 mmol/L (20.0-26.0) 12/05/16 Unknown POC ABG Total CO2 24 03/03/17 20: POC ABG O2 Sat 94 03/03/17 20: ABG O2 Saturation 96.8 % (95.0-99.0) 12/05/16 Unknown ABG O2 Content 9.9 (0.0-44) 12/05/16 Unknown POC ABG Base Excess 0 03/03/17 20:17 ABG Base Excess -3.4 mmol/L (-2.0-3.0) L 12/05/16 Unknown ABG Hemoglobin 7.4 gm/dl (12.0-16.0) L 12/05/16 Unknown ABG Carboxyhemoglobin 1.8 % (0.0-5.0) 12/05/16 Unknown ABG Methemoglobin 0.6 % (0.0-1.5) 12/05/16 Unknown Oxyhemoglobin 94.5 % (95.0-99.0) L 12/05/16 Unknown FiO2 40 % 03/03/17 20:17 Sodium 141 mmol/L (137-145) 03/29/17 04:30 Potassium 3.8 mmol/L (3.6-5.0) 03/29/17 04:30 Chloride 97.5 mmol/L (98-107) L 03/29/17 04:30 Carbon Dioxide 27 mmol/L (22-30) 03/29/17 04:30 Anion Gap 20 mmol/L 03/29/17 04:30 BUN 27 mg/dL (7-17) H 03/29/17 04:30 Creatinine 2.4 mg/dL (0.7-1.2) H 03/29/17 04:30 Estimated GFR 26 ml/min 03/29/17 04:30 BUN/Creatinine Ratio 11 % 03/29/17 04:30 Glucose 82 mg/dL (65-100) 03/29/17 04:30 POC Glucose 91 (70-105) 03/30/17 12:16 Osmolality 351 Mosm/kg 09/16/16 11:47 Lactic Acid 2.30 mmol/L (0.7-2.0) H* 01/09/17 08:22 Calcium 8.9 mg/dL (8.4-10.2) 03/29/17 04:30 Ionized Calcium 6.0 mg/dL (4.8-5.6) H 02/15/17 19:08 Phosphorus 3.90 mg/dL (2.5-4.5) 03/29/17 04:30 Magnesium 2.20 mg/dL (1.7-2.3) 03/29/17 04:30 Total Bilirubin 0.40 mg/dL (0.1-1.2) 03/20/17 Unknown Direct Bilirubin 0.2 mg/dL (0-0.2) 01/28/17 04:00 Indirect Bilirubin 0.3 mg/dL 01/28/17 04:00 AST 11 units/L (5-40) 03/20/17 Unknown ALT 6 units/L (7-56) L 03/20/17 Unknown Alkaline Phosphatase 97 units/L (35-129) 03/20/17 Unknown Ammonia 27.0 umol/L (25-60) 09/07/16 08:37 Lactate Dehydrogenase 170 units/L (91-180) 01/13/17 15:50 Total Creatine Kinase 121 units/L (30-135) 09/29/16 20:12 CK-MB (CK-2) < 1.0 ng/mL (0.0-4.0) 09/29/16 20:12 CK-MB (CK-2) Rel Index 0.8 (0-4) 09/29/16 20:12 Troponin T 0.204 ng/mL (0.00-0.029) H* 09/29/16 20:12 C-Reactive Protein 19.50 mg/dL (0.00-1.30) H 03/14/17 12:51 Total Protein 6.9 g/dL (6.3-8.2) 03/20/17 Unknown Albumin 0.9 g/dL (3.9-5) L 03/20/17 Unknown Albumin/Globulin Ratio 0.2 % 03/20/17 Unknown Prealbumin 0.110 g/L (0.200-0.400) L 12/29/16 05:15 Triglycerides 94 mg/dL (2-149) 03/20/17 Unknown Cholesterol 31 mg/dL (50-199) L 09/29/16 20:12 LDL Cholesterol Direct 4 mg/dL (50-130) L 09/29/16 20:12 HDL Cholesterol 3 mg/dL (40-59) L 09/29/16 20:12 Cholesterol/HDL Ratio 10.33 % 09/29/16 20:12 Angiotensin Convert Enz See scanned report 09/08/16 11:48 Renin 0.99 ng/mL/h (0.25-5.82) 10/07/16 10:56 Aldosterone <1 ng/dL () 10/07/16 10:56 Aldosterone/Renin Dir see below 08/18/17 10:56 Serotonin Release Assay See scanned report 09/29/16 13:35 25-OH Vitamin D Total 13 ng/mL (30-100) L 02/15/17 19:08 25-Hydroxy Vitamin D2 . 02/15/17 19:08 25-Hydroxy Vitamin D3 . 02/15/17 19:08 TSH 1.010 mlU/mL (0.270-4.200) 09/07/16 08:37 HCG, Qual Negative (Negative) 09/03/16 00:10 PTH Intact 10.88 pg/mL (15-65) L 02/15/17 19:08 Total Cortisol 18.2 mcg/dL () 02/02/17 20:09 Urine Color Yellow (Yellow) 11/05/16 13:09 Urine Turbidity Clear (Clear) 11/05/16 13:09 Urine pH 9.0 (5.0-7.0) H 11/05/16 13:09 Ur Specific Jones 1.011 (1.003-1.030) 11/05/16 13:09 Urine Protein 100 mg/dl mg/dL (Negative) 11/05/16 13:09 Urine Glucose (UA) Neg mg/dL (Negative) 11/05/16 13:09 Urine Ketones Neg mg/dL (Negative) 11/05/16 13:09 Urine Blood Neg (Negative) 11/05/16 13:09 Urine Nitrite Neg (Negative) 11/05/16 13:09 Urine Bilirubin Neg (Negative) 11/05/16 13:09 Urine Urobilinogen < 2.0 mg/dL (<2.0) 11/05/16 13:09 Ur Leukocyte Esterase Neg (Negative) 11/05/16 13:09 Urine WBC (Auto) 4.0 /HPF (0.0-6.0) 11/05/16 13:09 Urine RBC (Auto) 1.0 /HPF (0.0-6.0) 11/05/16 13:09 U Epithel Cells (Auto) 1.0 /HPF (0-13.0) 10/07/16 18:30 Urine Bacteria (Auto) 4+ /HPF (Negative) 11/05/16 13:09 Urine WBC Clumps 2+ /HPF 09/07/16 02:47 Hyaline Casts 4 /LPF 09/07/16 02:47 Urine Mucus Few /HPF 10/07/16 18:30 Urine Yeast (Budding) 3+ /HPF 10/07/16 18:30 Urine Eosinophils None seen (None Seen) 09/07/16 16:00 Urine Total Volume 950 11/12/16 10:18 Urine Creatinine 19.7 mg/dL (0.1-20.0) 11/12/16 10:18 Height (in) 65.0 inches 11/12/16 10:18 Weight (lb) 181.0 lbs 11/12/16 10:18 Creatinine Clearance 5 11/12/16 10:18 Urine Sodium 36 mEq/L 09/16/16 19:19 Urine Total Protein 16 mg/dL (5-11.8) H 09/16/16 19:19 Fluid Type Pleural 01/13/17 12:10 Fluid Color Yellow 01/13/17 12:10 Fluid Appearance Hazy 01/13/17 12:10 Fluid WBC 182 /mm3 01/13/17 12:10 Fluid RBC 41 /mm3 01/13/17 12:10 Fluid Seg Neutrophils 85.0 % 01/13/17 12:10 Fluid Lymphocytes 8.0 % 01/13/17 12:10 Fluid Reactive Lymphs 0 % 01/13/17 12:10 Fluid Monocytes 6.0 % 01/13/17 12:10 Fluid Eosinophils 1.0 % 01/13/17 12:10 Fluid Basophils 0 % 01/13/17 12:10 Fluid Total Protein 3.0 (15.0-45.0) L 01/13/17 12:10 Fluid LDH 1322 01/13/17 12:10 Fluid Comment Diff performed 01/13/17 12:10 Vancomycin Trough 2.3 ug/mL (5.0-20.0) L 09/21/16 13:00 Random Vancomycin 26.0 ug/mL (0-40.0) 03/13/17 05:39 Urine Opiates Screen Presumptive negative 09/03/16 15:11 Urine Methadone Screen Presumptive positive 09/03/16 15:11 Ur Barbiturates Screen Presumptive positive 09/03/16 15:11 Ur Phencyclidine Scrn Presumptive negative 09/03/16 15:11 Ur Amphetamines Screen Presumptive negative 09/03/16 15:11 U Benzodiazepines Scrn Presumptive negative 09/03/16 15:11 Urine Cocaine Screen Presumptive negative 09/03/16 15:11 U Marijuana (THC) Screen Presumptive positive 09/03/16 15:11 Drugs of Abuse Note Disclamer 09/03/16 15:11 Rheumatoid Factor 24 IU/ml (0-13) H 09/08/16 11:48 SAHIL Screen Negative (Negative) 09/07/16 09:20 Proteinase 3 (PR3) Ab <1.0 AI (<1.0) 09/07/16 09:20 Myeloperoxidase Ab <1.0 AI (<1.0) 09/07/16 09:20 Sjogren's Antibody <1.0 AI (<1.0) 09/08/16 15:35 Scl-70 Scleroderma Ab <1.0 AI (<1.0) 09/08/16 15:35 Centromere B Antibody <1.0 AI (<1.0) 09/08/16 12:02 Heparin-induced Plt Ab Negative (Negative) 09/29/16 13:35 UF Heparin High Dose 11 % Release 09/29/16 13:35 SUDHIR UFH Low Dose 0.1 6 % Release 09/29/16 13:35 SUDHIR UFH Low Dose 0.5 8 % Release 09/29/16 13:35 Cardiolipid IgG Ab <14 GPL (<=14) 09/12/16 09:59 Cardiolipid IgA Ab <11 APL (<=11) 09/12/16 09:59 Cardiolipid IgM Ab <12 MPL (<=12) 09/12/16 09:59 Complement C3 148 mg/dL (90-180) 09/07/16 09:20 Complement C4 58 mg/dL (16-47) H 09/07/16 09:20 RPR Nonreactive (Nonreactive) 09/08/16 11:48 Hepatitis A IgM Ab Non-reactive (NonReactive) 09/24/16 14:40 Hep Bs Antigen Non-reactive (Negative) 09/24/16 14:40 Hep B Core IgM Ab Non-reactive (NonReactive) 09/24/16 14:40 Hepatitis C Antibody Non-reactive (NonReactive) 09/24/16 14:40 HIV 1&2 Antibody Rapid Non react (Non React) 09/08/16 11:48 HIV P24 Antigen Non react (Non React) 09/08/16 11:48 Miscellaneous Test Flexitest 1 H 01/09/17 18:45 Blood Type A POSITIVE 03/20/17 16:00 Antibody Screen Negative 03/20/17 16:00 DELORIS Antibody Screen Negative 11/24/16 11:20 Crossmatch See Detail 03/20/17 16:00
[2017-03-30] MEDS ORDERED: TPN ADULT IV SCH (20:00)
[2017-03-31] MEDS: LOPRESSOR IV SCH ×3 (05:37→18:34)
[2017-03-31 06:46] LABS: Calcium 9.1 mg/dL (8.4-10.2)
[2017-03-31] MEDS: DUONEB *Not for PRN Use IH SCH ×4 (07:49→19:12)
[2017-03-31] MEDS: HumuLIN R SUB-Q SCH ×4 (09:13→18:35)
[2017-03-31] MEDS: HEPARIN SUB-Q SCH ×2 (09:43→22:27)
[2017-03-31] MEDS: PEPCID IV SCH (09:43)
--- NOTE | 2017-03-31 12:13 | Progress Note ---
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 UF as tolerated. Patient's serum creatinine is noted to be low - due to wasting of muscle mass. Needs to be maintained on dialysis at this time. * hypercalcemia work up - likely due to immobilization * Abx management per ID * Adjust Ca bath with dialysis prn * Transfuse pRBC per primary team. Epogen TIW prn * Vent management per pulm/CCM * Pressors prn for MAP>65 * Dose medications for renal function Subjective Date of service: 03/31/17 Principal diagnosis: Acute resp failure on MVS; S/P Acute CVA; Acute Encephalopathy; JUANITA Interval history: new events from last pm noted Objective - Exam Narrative Exam: Gen. appearance: Patient lying in bed, no apparent distress, 4. restraints HEENT: Normocephalic, atraumatic, pupils equally round and reactive to light, extraocular movement intact, and no sclericterus,. No JVD or thyromegaly or nodule,neck supple, no carotid bruit ,mucous membranes moist, unable to examine oral cavity Heart: S1, S2, regular rate and rhythm Lungs: Clear to auscultation bilaterally, breathing comfortable Abdomen: Positive bowel sounds, nontender, nondistended, no organomegaly Extremity: No edema, cyanosis, clubbing Skin: No rash, nodules, warm, dry Neuro: Difficult to assess, facial droop, moves all 4 extremities - Vital Signs Vital signs: Vital Signs - 12hr 03/31/17 03/31/17 03/31/17 00:25 00:43 02:00 Temperature 97.5 F L Pulse Rate 89 92 H Pulse Rate [ Anterior Bilateral Throughout] Pulse Rate [ From Monitor] Respiratory 15 Rate Respiratory Rate [Anterior Bilateral Throughout] Respiratory Rate [ Generalized] Blood Pressure 144/91 158/97 O2 Sat by Pulse 100 95 Oximetry O2 Sat by Pulse Oximetry [ Assessment] 03/31/17 03/31/17 03/31/17 04:00 05:37 06:00 Temperature Pulse Rate 98 H 95 H 88 Pulse Rate [ Anterior Bilateral Throughout] Pulse Rate [ From Monitor] Respiratory 29 H 15 Rate Respiratory Rate [Anterior Bilateral Throughout] Respiratory Rate [ Generalized] Blood Pressure 166/100 141/87 157/97 O2 Sat by Pulse 93 96 Oximetry O2 Sat by Pulse Oximetry [ Assessment] 03/31/17 03/31/17 03/31/17 06:21 07:49 08:00 Temperature 98.3 F 98.8 F Pulse Rate 93 H Pulse Rate [ 91 H 89 Anterior Bilateral Throughout] Pulse Rate [ 95 H From Monitor] Respiratory 21 Rate Respiratory 14 13 Rate [Anterior Bilateral Throughout] Respiratory Rate [ Generalized] Blood Pressure 160/104 O2 Sat by Pulse 98 Oximetry O2 Sat by Pulse 100 Oximetry [ Assessment] 03/31/17 10:00 Temperature Pulse Rate 106 H Pulse Rate [ Anterior Bilateral Throughout] Pulse Rate [ From Monitor] Respiratory 16 Rate Respiratory Rate [Anterior Bilateral Throughout] Respiratory 17 Rate [ Generalized] Blood Pressure 168/106 O2 Sat by Pulse 98 Oximetry O2 Sat by Pulse Oximetry [ Assessment] - Lab 03/27/17 05:30 03/31/17 06:00 Most recent lab results ABG pH 7.450 pH Units (7.350-7.450) 12/05/16 Unknown ABG pCO2 29.6 mm Hg 12/05/16 Unknown ABG pO2 75.2 mm Hg (80.0-90.0) L 12/05/16 Unknown ABG HCO3 20.1 mmol/L (20.0-26.0) 12/05/16 Unknown ABG O2 Saturation 96.8 % (95.0-99.0) 12/05/16 Unknown Calcium 9.1 mg/dL (8.4-10.2) 03/31/17 06:00 Phosphorus 5.90 mg/dL (2.5-4.5) H 03/31/17 06:00 Magnesium 2.50 mg/dL (1.7-2.3) H 03/31/17 06:00 Urine Creatinine 19.7 mg/dL (0.1-20.0) 11/12/16 10:18 Urine Sodium 36 mEq/L 09/16/16 19:19 Urine Total Protein 16 mg/dL (5-11.8) H 09/16/16 19:19
[2017-03-31] MEDS: HEPARIN IV PRN (19:22)
[2017-03-31] MEDS ORDERED: TPN ADULT IV SCH (20:00)
[2017-03-31] MEDS ORDERED: INTRALIPID 20% 250 ML IV SCH (20:00)
[2017-03-31] MEDS: TRANSDERM-SCOP TD SCH (20:31)
--- NOTE | 2017-03-31 21:39 | Progress Note ---
Assessment and Plan Assessment and plan: Patient is 46-year-old woman with a history of hypertension, diabetes, asthma, hyperlipidemia, chronic kidney disease and anxiety , who was brought in by family because, she couldn't get her words out, her face was also twisted, she was admitted for acute CVA and accelerated hypertension, she had a hx of poor adherence with her medications, and uncontrolled htn. Patient's SBP on admission was noted be greater than 260. TPA was started but this was discontinued after 5 minutes because her blood pressure became uncontrolled. Since then she was worsened and has not regained her mental status, has been in a persistent vegetative state. She has had multiple infections has had sepsis requiring multiple rounds of antibiotics. She is also suffered from peritonitis , for which NG tube was removed and patient has since been on TPN. Chest required multiple transfusions. Prognosis has been poor and patient has been worsening. Her brother elected to make her DO NOT RESUSCITATE. Status post cardiac arrest , 11/21/16 on Mechanical ventilation >96 hrs, > 6 months Vent Dependant Respiratory failure secondary to Anoxic Brain injury S/P Tracheostomy ESRD - on HD Acute CVA with infarct -Unfortunately she is not in a persistent vegetative state. Unable to tolerate secondary prevention meds as she is now strict TPN Persistent vegetative state - This patient's needs placement at SNF - She was denied for LTACH -Family meeting planned for Monday at 10 AM Nosocomial acquired aspiration pneumonia/sepsis/UTI/PERITONITIS (Perforated bowel) - Has completed multiple courses of abx, and has had A. fib with RVR -On amio drip, cannot change to PO due to persistent nausea and vomiting, NPO Diabetes type 2. -Continue sliding-scale regular insulin and Accu-Cheks. Hyperlipidemia -Currently unable to tolerate statins Severe Protein calorie Malnutrition/Adult failure to thrive - TPN Anemia requiring multiple transfusions/acute blood loss -stable, keep hg above 7 Sacral decubitus ulcer and multiple lower extremity decubiti - Status post debridement -Wound vac in place Disposition. Very poor prognosis. DNR Family meeting was held on 03/31: family will likely to continue current rx, they want to keep her DNR. They are not ready to withdraw life support. They want to meet with Hospice small business sales representative, and will reconvene on Monday, they are aware of her extremely poor prognosis. - The high probability of a clinically significant, sudden or life threatening deterioration of the [neurologic, CV] system(s) required my full and direct attention, intervention and personal management. The aggregate critical care time was [35] minutes. This time is in addition to time spent performing reported procedures but includes the following: [x] Data Review and interpretation [x] Patient assessment and monitoring of vital signs [x] Documentation [x] Medication orders and management History Interval history: patient seen and examined, remains unresponsive on the ventilator. afebrile, no vomiting was tachypneic and tachycardic, overnight Hospitalist Physical - Physical exam Narrative exam: GEN: Ill appearing, trach, staring into space,, non purposeful movement NECK: SUPPLE, trach in place, ngt in place and to suction. CVS:Irregular Irregular with LUNGS/CHEST: NORMAL CHEST EXPANSION B, GOOD AIR ENTRY B, tachypena ABD: SOFT, no grimise on abdominal palpation, Ostomy bags at two side by side fistula site. GBS, NO REBOUND OR GUARDING, peg tube in place EXT/SKIN: NO SIGNIFICANT EDEMA BUT WITH UNSTAGEABLE SACRAL DECUB, MSK: +spontaneous non purposeful movement NEURO: on a ventilator and unresponsive despite being off sedation PSY: Comatose, - Constitutional Vitals: Temp Pulse Resp BP Pulse Ox 97.5 F L 96 H 16 107/80 100 03/31/17 20:00 03/31/17 20:15 03/31/17 18:00 03/31/17 20:15 03/31/17 19:28 General appearance: Present: no acute distress, cachectic, other (spontaneous opening of eyes, unresponsive) Results - Labs CBC & Chem 7: 03/27/17 05:30 04/01/17 07:15 Labs: Laboratory Last Values WBC 5.5 K/mm3 (4.5-11.0) 03/27/17 05:30 RBC 2.95 M/mm3 (3.65-5.03) L 03/27/17 05:30 Hgb 8.9 gm/dl (10.1-14.3) L 03/27/17 05:30 Hct 28.7 % (30.3-42.9) L 03/27/17 05:30 MCV 97 fl (79-97) 03/27/17 05:30 MCH 30 pg (28-32) 03/27/17 05:30 MCHC 31 % (30-34) 03/27/17 05:30 RDW 24.4 % (13.2-15.2) H 03/27/17 05:30 Plt Count 156 K/mm3 (140-440) 03/27/17 05:30 Lymph % (Auto) 25.1 % (13.4-35.0) 03/27/17 05:30 [place] % (Auto) 8.6 % (0.0-7.3) H 03/27/17 05:30 Eos % (Auto) 3.9 % (0.0-4.3) 03/27/17 05:30 Baso % (Auto) 1.5 % (0.0-1.8) 03/27/17 05:30 Lymph # 1.4 K/mm3 (1.2-5.4) 03/27/17 05:30 [place] # 0.5 K/mm3 (0.0-0.8) 03/27/17 05:30 Eos # 0.2 K/mm3 (0.0-0.4) 03/27/17 05:30 Baso # 0.1 K/mm3 (0.0-0.1) 03/27/17 05:30 Add Manual Diff Complete 03/14/17 14:30 Total Counted 100 03/14/17 14:30 Seg Neutrophils % 60.9 % (40.0-70.0) 03/27/17 05:30 Seg Neuts % (Manual) 70.0 % (40.0-70.0) 03/14/17 14:30 Band Neutrophils % 0 % 03/14/17 14:30 Lymphocytes % (Manual) 13.0 % (13.4-35.0) L 03/14/17 14:30 Reactive Lymphs % (Man) 1.0 % 03/14/17 14:30 Monocytes % (Manual) 15.0 % (0.0-7.3) H 03/14/17 14:30 Eosinophils % (Manual) 1.0 % (0.0-4.3) 03/14/17 14:30 Basophils % (Manual) 0 % (0.0-1.8) 03/14/17 14:30 Metamyelocytes % 0 % 03/14/17 14:30 Myelocytes % 0 % 03/14/17 14:30 Promyelocytes % 0 % 03/14/17 14:30 Blast Cells % 0 % 03/14/17 14:30 Nucleated RBC % Not Reportable 03/14/17 14:30 Seg Neutrophils # 3.3 K/mm3 (1.8-7.7) 03/27/17 05:30 Seg Neutrophils # Man 12.3 K/mm3 (1.8-7.7) H 03/14/17 14:30 Band Neutrophils # 0.0 K/mm3 03/14/17 14:30 Lymphocytes # (Manual) 2.3 K/mm3 (1.2-5.4) 03/14/17 14:30 Abs React Lymphs (Man) 0.2 K/mm3 03/14/17 14:30 Monocytes # (Manual) 2.6 K/mm3 (0.0-0.8) H 03/14/17 14:30 Eosinophils # (Manual) 0.2 K/mm3 (0.0-0.4) 03/14/17 14:30 Basophils # (Manual) 0.0 K/mm3 (0.0-0.1) 03/14/17 14:30 Metamyelocytes # 0.0 K/mm3 03/14/17 14:30 Myelocytes # 0.0 K/mm3 03/14/17 14:30 Promyelocytes # 0.0 K/mm3 03/14/17 14:30 Blast Cells # 0.0 K/mm3 03/14/17 14:30 Pathologist Review 09/13/16 04:00 WBC Morphology Not Reportable 03/14/17 14:30 Hypersegmented Neuts Not Reportable 03/14/17 14:30 Hyposegmented Neuts Not Reportable 03/14/17 14:30 Hypogranular Neuts Not Reportable 03/14/17 14:30 Smudge Cells Not Reportable 03/14/17 14:30 Toxic Granulation Not Reportable 03/14/17 14:30 Toxic Vacuolation Not Reportable 03/14/17 14:30 Dohle Bodies Not Reportable 03/14/17 14:30 Pelger-Huet Anomaly Not Reportable 03/14/17 14:30 Jasmina Rods Not Reportable 03/14/17 14:30 Platelet Estimate Consistent w auto 03/14/17 14:30 Clumped Platelets Not Reportable 03/14/17 14:30 Plt Clumps, EDTA Not Reportable 03/14/17 14:30 Large Platelets Not Reportable 03/14/17 14:30 Giant Platelets Not Reportable 03/14/17 14:30 Platelet Satelliting Not Reportable 03/14/17 14:30 Plt Morphology Comment Not Reportable 03/14/17 14:30 RBC Morphology Not Reportable 03/14/17 14:30 Dimorphic RBCs Not Reportable 03/14/17 14:30 Polychromasia Not Reportable 03/14/17 14:30 Hypochromasia 2+ 03/14/17 14:30 Poikilocytosis Not Reportable 03/14/17 14:30 Anisocytosis 1+ 03/14/17 14:30 Microcytosis Not Reportable 03/14/17 14:30 Macrocytosis Not Reportable 03/14/17 14:30 Spherocytes Not Reportable 03/14/17 14:30 Pappenheimer Bodies Not Reportable 03/14/17 14:30 Sickle Cells Not Reportable 03/14/17 14:30 Target Cells Not Reportable 03/14/17 14:30 Tear Drop Cells Not Reportable 03/14/17 14:30 Ovalocytes Not Reportable 03/14/17 14:30 Stomatocytes 2+ 03/14/17 14:30 Helmet Cells Not Reportable 03/14/17 14:30 [place] Bodies Not Reportable 03/14/17 14:30 [place] Rings Not Reportable 03/14/17 14:30 [place] Cells Not Reportable 03/14/17 14:30 Bite Cells Not Reportable 03/14/17 14:30 Crenated Cell Not Reportable 03/14/17 14:30 Elliptocytes Not Reportable 03/14/17 14:30 Acanthocytes (Spur) Not Reportable 03/14/17 14:30 Rouleaux Not Reportable 03/14/17 14:30 Hemoglobin C Crystals Not Reportable 03/14/17 14:30 Schistocytes Not Reportable 03/14/17 14:30 Malaria parasites Not Reportable 03/14/17 14:30 ESR > 140.0 mm/Hr (0-20) 09/08/16 11:48 Jun Bodies Not Reportable 03/14/17 14:30 Hem Pathologist Commnt No 03/14/17 14:30 PT 15.4 Sec. (12.2-14.9) H 01/13/17 15:50 INR 1.16 (0.87-1.13) H 01/13/17 15:50 APTT 33.0 Sec. (24.2-36.6) 10/09/16 03:45 Thrombin Time 16.8 Sec. (15.1-19.6) 09/03/16 00:10 Fibrinogen 750 mg/dl (211-480) H 09/08/16 11:48 Lupus Anticoagulant see below 09/12/16 09:59 LA PTT Baseline See scanned report 09/12/16 09:59 dRVVT Confirm Interp Positive (Negative) H 09/12/16 09:59 dRVVT Screen 50:50 See scanned report 09/12/16 09:59 dRVVT Mix Interpret See scanned report 09/12/16 09:59 Protein C Antigen 122 % (70-140) 09/08/16 15:35 Free Protein S 97 % normal (50-147) 09/08/16 15:35 Total Protein S 109 % (70-140) 09/08/16 15:35 Antithrombin III Ag 100 % (80-120) 09/08/16 15:35 Heparin Anti-Xa, Unfract Negative (Negative) 09/29/16 13:35 Factor V Activity 182 % (65-150) H 09/08/16 15:35 POC ABG pH 7.518 (7.35-7.45) H 03/03/17 20:17 ABG pH 7.450 pH Units (7.350-7.450) 12/05/16 Unknown POC ABG pCO2 28.8 (35-45) L 03/03/17 20:17 ABG pCO2 29.6 mm Hg 12/05/16 Unknown POC ABG pO2 61 (80-105) L 03/03/17 20: ABG pO2 75.2 mm Hg (80.0-90.0) L 12/05/16 Unknown POC ABG HCO3 23.4 03/03/17 20:17 ABG HCO3 20.1 mmol/L (20.0-26.0) 12/05/16 Unknown POC ABG Total CO2 24 03/03/17 20:17 POC ABG O2 Sat 94 03/03/17 20:17 ABG O2 Saturation 96.8 % (95.0-99.0) 12/05/16 Unknown ABG O2 Content 9.9 (0.0-44) 12/05/16 Unknown POC ABG Base Excess 0 03/03/17 20:17 ABG Base Excess -3.4 mmol/L (-2.0-3.0) L 12/05/16 Unknown ABG Hemoglobin 7.4 gm/dl (12.0-16.0) L 12/05/16 Unknown ABG Carboxyhemoglobin 1.8 % (0.0-5.0) 12/05/16 Unknown ABG Methemoglobin 0.6 % (0.0-1.5) 12/05/16 Unknown Oxyhemoglobin 94.5 % (95.0-99.0) L 12/05/16 Unknown FiO2 40 % 03/03/17 20:17 Sodium 142 mmol/L (137-145) 03/31/17 06:00 Potassium 3.9 mmol/L (3.6-5.0) 03/31/17 06:00 Chloride 97.1 mmol/L (98-107) L 03/31/17 06:00 Carbon Dioxide 29 mmol/L (22-30) 03/31/17 06:00 Anion Gap 20 mmol/L 03/31/17 06:00 BUN 44 mg/dL (7-17) H 03/31/17 06:00 Creatinine 3.2 mg/dL (0.7-1.2) H 03/31/17 06:00 Estimated GFR 19 ml/min 03/31/17 06:00 BUN/Creatinine Ratio 14 % 03/31/17 06:00 Glucose 87 mg/dL (65-100) 03/31/17 06:00 POC Glucose 99 (70-105) 03/31/17 11:36 Osmolality 351 Mosm/kg 09/16/16 11:47 Lactic Acid 2.30 mmol/L (0.7-2.0) H* 01/09/17 08:22 Calcium 9.1 mg/dL (8.4-10.2) 03/31/17 06:00 Ionized Calcium 6.0 mg/dL (4.8-5.6) H 02/15/17 19:08 Phosphorus 5.90 mg/dL (2.5-4.5) H 03/31/17 06:00 Magnesium 2.50 mg/dL (1.7-2.3) H 03/31/17 06:00 Total Bilirubin 0.40 mg/dL (0.1-1.2) 03/20/17 Unknown Direct Bilirubin 0.2 mg/dL (0-0.2) 01/28/17 04:00 Indirect Bilirubin 0.3 mg/dL 01/28/17 04:00 AST 11 units/L (5-40) 03/20/17 Unknown ALT 6 units/L (7-56) L 03/20/17 Unknown Alkaline Phosphatase 97 units/L (35-129) 03/20/17 Unknown Ammonia 27.0 umol/L (25-60) 09/07/16 08:37 Lactate Dehydrogenase 170 units/L (91-180) 01/13/17 15:50 Total Creatine Kinase 121 units/L (30-135) 09/29/16 20:12 CK-MB (CK-2) < 1.0 ng/mL (0.0-4.0) 09/29/16 20:12 CK-MB (CK-2) Rel Index 0.8 (0-4) 09/29/16 20:12 Troponin T 0.204 ng/mL (0.00-0.029) H* 09/29/16 20:12 C-Reactive Protein 19.50 mg/dL (0.00-1.30) H 03/14/17 12:51 Total Protein 6.9 g/dL (6.3-8.2) 03/20/17 Unknown Albumin 0.9 g/dL (3.9-5) L 03/20/17 Unknown Albumin/Globulin Ratio 0.2 % 03/20/17 Unknown Prealbumin 0.110 g/L (0.200-0.400) L 12/29/16 05:15 Triglycerides 94 mg/dL (2-149) 03/20/17 Unknown Cholesterol 31 mg/dL (50-199) L 09/29/16 20:12 LDL Cholesterol Direct 4 mg/dL (50-130) L 09/29/16 20:12 HDL Cholesterol 3 mg/dL (40-59) L 09/29/16 20:12 Cholesterol/HDL Ratio 10.33 % 09/29/16 20:12 Angiotensin Convert Enz See scanned report 09/08/16 11:48 Renin 0.99 ng/mL/h (0.25-5.82) 10/07/16 10:56 Aldosterone <1 ng/dL () 10/07/16 10:56 Aldosterone/Renin Dir see below 10/07/16 10:56 Serotonin Release Assay See scanned report 09/29/16 13:35 25-OH Vitamin D Total 13 ng/mL (30-100) L 02/15/17 19:08 25-Hydroxy Vitamin D2 . 02/15/17 19:08 25-Hydroxy Vitamin D3 . 02/15/17 19:08 TSH 1.010 mlU/mL (0.270-4.200) 09/07/16 08:37 HCG, Qual Negative (Negative) 09/03/16 00:10 PTH Intact 10.88 pg/mL (15-65) L 02/15/17 19:08 Total Cortisol 18.2 mcg/dL () 02/02/17 20:09 Urine Color Yellow (Yellow) 11/05/16 13:09 Urine Turbidity Clear (Clear) 11/05/16 13:09 Urine pH 9.0 (5.0-7.0) H 11/05/16 13:09 Ur Specific [place] 1.011 (1.003-1.030) 11/05/16 13:09 Urine Protein 100 mg/dl mg/dL (Negative) 11/05/16 13:09 Urine Glucose (UA) Neg mg/dL (Negative) 11/05/16 13:09 Urine Ketones Neg mg/dL (Negative) 11/05/16 13:09 Urine Blood Neg (Negative) 11/05/16 13:09 Urine Nitrite Neg (Negative) 11/05/16 13:09 Urine Bilirubin Neg (Negative) 11/05/16 13:09 Urine Urobilinogen < 2.0 mg/dL (<2.0) 11/05/16 13:09 Ur Leukocyte Esterase Neg (Negative) 11/05/16 13:09 Urine WBC (Auto) 4.0 /HPF (0.0-6.0) 11/05/16 13:09 Urine RBC (Auto) 1.0 /HPF (0.0-6.0) 11/05/16 13:09 U Epithel Cells (Auto) 1.0 /HPF (0-13.0) 10/07/16 18:30 Urine Bacteria (Auto) 4+ /HPF (Negative) 11/05/16 13:09 Urine WBC Clumps 2+ /HPF 09/07/16 02:47 Hyaline Casts 4 /LPF 09/07/16 02:47 Urine Mucus Few /HPF 10/07/16 18:30 Urine Yeast (Budding) 3+ /HPF 10/07/16 18:30 Urine Eosinophils None seen (None Seen) 09/07/16 16:00 Urine Total Volume 950 11/12/16 10:18 Urine Creatinine 19.7 mg/dL (0.1-20.0) 11/12/16 10:18 Height (in) 65.0 inches 11/12/16 10:18 Weight (lb) 181.0 lbs 11/12/16 10:18 Creatinine Clearance 5 11/12/16 10:18 Urine Sodium 36 mEq/L 09/16/16 19:19 Urine Total Protein 16 mg/dL (5-11.8) H 09/16/16 19:19 Fluid Type Pleural 01/13/17 12:10 Fluid Color Yellow 01/13/17 12:10 Fluid Appearance Hazy 01/13/17 12:10 Fluid WBC 182 /mm3 01/13/17 12:10 Fluid RBC 41 /mm3 01/13/17 12:10 Fluid Seg Neutrophils 85.0 % 01/13/17 12:10 Fluid Lymphocytes 8.0 % 01/13/17 12:10 Fluid Reactive Lymphs 0 % 01/13/17 12:10 Fluid Monocytes 6.0 % 01/13/17 12:10 Fluid Eosinophils 1.0 % 01/13/17 12:10 Fluid Basophils 0 % 01/13/17 12:10 Fluid Total Protein 3.0 (15.0-45.0) L 01/13/17 12:10 Fluid LDH 1322 01/13/17 12:10 Fluid Comment Diff performed 01/13/17 12:10 Vancomycin Trough 2.3 ug/mL (5.0-20.0) L 09/21/16 13:00 Random Vancomycin 26.0 ug/mL (0-40.0) 03/13/17 05:39 Urine Opiates Screen Presumptive negative 09/03/16 15:11 Urine Methadone Screen Presumptive positive 09/03/16 15:11 Ur Barbiturates Screen Presumptive positive 09/03/16 15:11 Ur Phencyclidine Scrn Presumptive negative 09/03/16 15:11 Ur Amphetamines Screen Presumptive negative 09/03/16 15:11 U Benzodiazepines Scrn Presumptive negative 09/03/16 15:11 Urine Cocaine Screen Presumptive negative 09/03/16 15:11 U Marijuana (THC) Screen Presumptive positive 09/03/16 15:11 Drugs of Abuse Note Disclamer 09/03/16 15:11 Rheumatoid Factor 24 IU/ml (0-13) H 09/08/16 11:48 SAHIL Screen Negative (Negative) 09/07/16 09:20 Proteinase 3 (PR3) Ab <1.0 AI (<1.0) 09/07/16 09:20 Myeloperoxidase Ab <1.0 AI (<1.0) 09/07/16 09:20 Sjogren's Antibody <1.0 AI (<1.0) 09/08/16 15:35 Scl-70 Scleroderma Ab <1.0 AI (<1.0) 09/08/16 15:35 Centromere B Antibody <1.0 AI (<1.0) 09/08/16 12:02 Heparin-induced Plt Ab Negative (Negative) 09/29/16 13:35 UF Heparin High Dose 11 % Release 09/29/16 13:35 SUDHIR UFH Low Dose 0.1 6 % Release 09/29/16 13:35 SUDHIR UFH Low Dose 0.5 8 % Release 09/29/16 13:35 Cardiolipid IgG Ab <14 GPL (<=14) 09/12/16 09:59 Cardiolipid IgA Ab <11 APL (<=11) 09/12/16 09:59 Cardiolipid IgM Ab <12 MPL (<=12) 09/12/16 09:59 Complement C3 148 mg/dL (90-180) 09/07/16 09:20 Complement C4 58 mg/dL (16-47) H 09/07/16 09:20 RPR Nonreactive (Nonreactive) 09/08/16 11:48 Hepatitis A IgM Ab Non-reactive (NonReactive) 09/24/16 14:40 Hep Bs Antigen Non-reactive (Negative) 09/24/16 14:40 Hep B Core IgM Ab Non-reactive (NonReactive) 09/24/16 14:40 Hepatitis C Antibody Non-reactive (NonReactive) 09/24/16 14:40 HIV 1&2 Antibody Rapid Non react (Non React) 09/08/16 11:48 HIV P24 Antigen Non react (Non React) 09/08/16 11:48 Miscellaneous Test Flexitest 1 H 01/09/17 18:45 Blood Type A POSITIVE 03/20/17 16:00 Antibody Screen Negative 03/20/17 16:00 DELORIS Antibody Screen Negative 11/24/16 11:20 Crossmatch See Detail 03/20/17 16:00
[2017-04-01] MEDS: LOPRESSOR IV SCH ×4 (00:40→18:23)
[2017-04-01] MEDS: HumuLIN R SUB-Q SCH ×4 (00:49→18:26)
[2017-04-01] MEDS: DUONEB *Not for PRN Use IH SCH ×3 (08:50→19:37)
[2017-04-01] MEDS: HEPARIN SUB-Q SCH ×2 (11:17→22:49)
[2017-04-01] MEDS: PEPCID IV SCH (11:18)
[2017-04-01] MEDS: DURAGESIC TD SCH (11:18)
--- NOTE | 2017-04-01 11:47 | Progress Note ---
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 UF as tolerated. Patient's serum creatinine is noted to be low - due to wasting of muscle mass. Needs to be maintained on dialysis at this time. * hypercalcemia work up - likely due to immobilization * Abx management per ID * Adjust Ca bath with dialysis prn * Transfuse pRBC per primary team. Epogen TIW prn * Vent management per pulm/CCM * Pressors prn for MAP>65 * Dose medications for renal function Subjective Date of service: 04/01/17 Principal diagnosis: Acute resp failure on MVS; S/P Acute CVA; Acute Encephalopathy; JUANITA Interval history: new events from last pm noted Objective - Exam Narrative Exam: Gen. appearance: Patient lying in bed, no apparent distress, 4. restraints HEENT: Normocephalic, atraumatic, pupils equally round and reactive to light, extraocular movement intact, and no sclericterus,. No JVD or thyromegaly or nodule,neck supple, no carotid bruit ,mucous membranes moist, unable to examine oral cavity Heart: S1, S2, regular rate and rhythm Lungs: Clear to auscultation bilaterally, breathing comfortable Abdomen: Positive bowel sounds, nontender, nondistended, no organomegaly Extremity: No edema, cyanosis, clubbing Skin: No rash, nodules, warm, dry Neuro: Difficult to assess, facial droop, moves all 4 extremities - Vital Signs Vital signs: Vital Signs - 12hr 04/01/17 04/01/17 04/01/17 00:00 00:40 00:45 Temperature 97.7 F Pulse Rate 101 H 98 H Pulse Rate [ 98 H From Monitor] Respiratory 15 12 Rate Respiratory Rate [ Generalized] Blood Pressure 134/84 112/79 O2 Sat by Pulse 100 100 Oximetry 04/01/17 04/01/17 04/01/17 02:00 03:18 03:45 Temperature 97.7 F Pulse Rate 88 88 Pulse Rate [ From Monitor] Respiratory 17 Rate Respiratory Rate [ Generalized] Blood Pressure 94/63 99/72 O2 Sat by Pulse 99 100 Oximetry 04/01/17 04/01/17 04/01/17 04:00 06:00 07:22 Temperature 98.4 F Pulse Rate 91 H 98 H 102 H Pulse Rate [ From Monitor] Respiratory 15 16 Rate Respiratory Rate [ Generalized] Blood Pressure 102/68 129/85 119/83 O2 Sat by Pulse 98 100 Oximetry 04/01/17 04/01/17 04/01/17 08:00 08:55 09:00 Temperature 97.7 F Pulse Rate 91 H 92 H 92 H Pulse Rate [ From Monitor] Respiratory 12 18 13 Rate Respiratory Rate [ Generalized] Blood Pressure 78/56 104/78 104/78 O2 Sat by Pulse 100 100 100 Oximetry 04/01/17 04/01/17 04/01/17 10:00 11:18 11:20 Temperature Pulse Rate 94 H 98 H Pulse Rate [ From Monitor] Respiratory 17 20 Rate Respiratory 18 Rate [ Generalized] Blood Pressure 132/89 101/66 O2 Sat by Pulse 100 Oximetry - Lab 03/27/17 05:30 04/01/17 07:15 Most recent lab results ABG pH 7.450 pH Units (7.350-7.450) 12/05/16 Unknown ABG pCO2 29.6 mm Hg 12/05/16 Unknown ABG pO2 75.2 mm Hg (80.0-90.0) L 12/05/16 Unknown ABG HCO3 20.1 mmol/L (20.0-26.0) 12/05/16 Unknown ABG O2 Saturation 96.8 % (95.0-99.0) 12/05/16 Unknown Calcium 9.0 mg/dL (8.4-10.2) 04/01/17 07:15 Phosphorus 4.00 mg/dL (2.5-4.5) D 04/01/17 07:15 Magnesium 2.00 mg/dL (1.7-2.3) 04/01/17 07:15 Urine Creatinine 19.7 mg/dL (0.1-20.0) 11/12/16 10:18 Urine Sodium 36 mEq/L 09/16/16 19:19 Urine Total Protein 16 mg/dL (5-11.8) H 09/16/16 19:19
--- NOTE | 2017-04-01 19:28 | Progress Note ---
Assessment and Plan Assessment and plan: This patient had high probability of clinically significant sudden and life- threatening deterioration. Patient will require more full and direct intervention and personal management. The critical care time was 34 minutes. This was in addition to the time was spent performing data review patient analysis monitoring of vital signs documentation and medication management. Total Time Spent with Patient (Minutes): 33 cc time - Patient Problems (1) JUANITA (acute kidney injury) Current Visit: Yes Status: Acute Plan to address problem: Acute kidney injury appears to be somewhat more chronic today. May require additional hemodialysis in the a.m. Pt to recieve HD today (2) Acute CVA (cerebrovascular accident) Current Visit: Yes Status: Acute Plan to address problem: Acute CVA left middle cerebral artery prognosis remains extremely poor. Continue to treat with antiplatelet therapy aggressive blood pressure control and lipid therapy. No new changes in mgt. With discahrge planning [facility] will not take pt unless has peg but patient cannot have peg due to previous surgery. Plan is to see if [facility] will take patient and return to hospital of get PEG will place PEG to abdominal wounds have healed. Then we'll try to go to longterm facility. Patient was not a candidate for LTAC (3) Acute blood loss anemia Current Visit: Yes Status: Resolved (4) Acute respiratory failure with hypoxia Current Visit: Yes Status: Acute Plan to address problem: Patient remains intubated continue to treat bronchodilators and steroids unable to wean today. Spoke to pulmonology will be very difficult to wean with volume overload at this time. Continue renal failure.cont nebs and O2 (5) Aspiration pneumonia Current Visit: Yes Status: Acute Plan to address problem: Continue antibiotic coverage as per infectious disease continue pressor support (6) Fungemia Current Visit: Yes Status: Resolved Plan to address problem: diflucan d/c (7) Hypertensive emergency Current Visit: Yes Status: Resolved Plan to address problem: Resolvedbp is 112 over 72 very well controlled (8) Type 2 diabetes mellitus Current Visit: Yes Status: Chronic Plan to address problem: Patient has very good control diabetes continue present management. History Interval history: Patient 46-year-old female with extensive CVA now with persistent vegetative state. 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 She has had several episodes that required cardiac resuscitation. Pt remains unresponsiive.Not tracking Hospitalist Physical - Constitutional Vitals: Temp Pulse Resp BP Pulse Ox 98.2 F 109 H 20 103/73 100 04/01/17 16:00 04/01/17 18:23 04/01/17 11:18 04/01/17 18:23 04/01/17 17:45 General appearance: Present: no acute distress, cachectic, other (spontaneous opening of eyes, unresponsive) - EENT Eyes: Present: PERRL, scleral icterus ENT: poor dentition, no hearing intact - Neck Neck: Present: supple, normal ROM - Respiratory Respiratory effort: other (intubated) Respiratory: bilateral: diminished, rhonchi - Cardiovascular Rhythm: regular Heart Sounds: Present: S1 & S2, systolic murmur - Extremities Extremities: No edema, normal temperature, normal color Extremity abnormal: edema, pulses diminished Peripheral Pulses: abnormal - Abdominal General gastrointestinal: soft, non-tender, distended, hypoactive bowel sounds - Neurologic Neurologic: focal deficits, other (Nonverbal and unresponsive.) Results - Labs CBC & Chem 7: 03/27/17 05:30 04/01/17 07:15 Labs: Laboratory Last Values WBC 5.5 K/mm3 (4.5-11.0) 03/27/17 05:30 RBC 2.95 M/mm3 (3.65-5.03) L 03/27/17 05:30 Hgb 8.9 gm/dl (10.1-14.3) L 03/27/17 05:30 Hct 28.7 % (30.3-42.9) L 03/27/17 05:30 MCV 97 fl (79-97) 03/27/17 05:30 MCH 30 pg (28-32) 03/27/17 05:30 MCHC 31 % (30-34) 03/27/17 05:30 RDW 24.4 % (13.2-15.2) H 03/27/17 05:30 Plt Count 156 K/mm3 (140-440) 03/27/17 05:30 Lymph % (Auto) 25.1 % (13.4-35.0) 03/27/17 05:30 [place] % (Auto) 8.6 % (0.0-7.3) H 03/27/17 05:30 Eos % (Auto) 3.9 % (0.0-4.3) 03/27/17 05:30 Baso % (Auto) 1.5 % (0.0-1.8) 03/27/17 05:30 Lymph # 1.4 K/mm3 (1.2-5.4) 03/27/17 05:30 [place] # 0.5 K/mm3 (0.0-0.8) 03/27/17 05:30 Eos # 0.2 K/mm3 (0.0-0.4) 03/27/17 05:30 Baso # 0.1 K/mm3 (0.0-0.1) 03/27/17 05:30 Add Manual Diff Complete 03/14/17 14:30 Total Counted 100 03/14/17 14:30 Seg Neutrophils % 60.9 % (40.0-70.0) 03/27/17 05:30 Seg Neuts % (Manual) 70.0 % (40.0-70.0) 03/14/17 14:30 Band Neutrophils % 0 % 03/14/17 14:30 Lymphocytes % (Manual) 13.0 % (13.4-35.0) L 03/14/17 14:30 Reactive Lymphs % (Man) 1.0 % 03/14/17 14:30 Monocytes % (Manual) 15.0 % (0.0-7.3) H 03/14/17 14:30 Eosinophils % (Manual) 1.0 % (0.0-4.3) 03/14/17 14:30 Basophils % (Manual) 0 % (0.0-1.8) 03/14/17 14:30 Metamyelocytes % 0 % 03/14/17 14:30 Myelocytes % 0 % 03/14/17 14:30 Promyelocytes % 0 % 03/14/17 14:30 Blast Cells % 0 % 03/14/17 14:30 Nucleated RBC % Not Reportable 03/14/17 14:30 Seg Neutrophils # 3.3 K/mm3 (1.8-7.7) 03/27/17 05:30 Seg Neutrophils # Man 12.3 K/mm3 (1.8-7.7) H 03/14/17 14:30 Band Neutrophils # 0.0 K/mm3 03/14/17 14:30 Lymphocytes # (Manual) 2.3 K/mm3 (1.2-5.4) 03/14/17 14:30 Abs React Lymphs (Man) 0.2 K/mm3 03/14/17 14:30 Monocytes # (Manual) 2.6 K/mm3 (0.0-0.8) H 03/14/17 14:30 Eosinophils # (Manual) 0.2 K/mm3 (0.0-0.4) 03/14/17 14:30 Basophils # (Manual) 0.0 K/mm3 (0.0-0.1) 03/14/17 14:30 Metamyelocytes # 0.0 K/mm3 03/14/17 14:30 Myelocytes # 0.0 K/mm3 03/14/17 14:30 Promyelocytes # 0.0 K/mm3 03/14/17 14:30 Blast Cells # 0.0 K/mm3 03/14/17 14:30 Pathologist Review 09/13/16 04:00 WBC Morphology Not Reportable 03/14/17 14:30 Hypersegmented Neuts Not Reportable 03/14/17 14:30 Hyposegmented Neuts Not Reportable 03/14/17 14:30 Hypogranular Neuts Not Reportable 03/14/17 14:30 Smudge Cells Not Reportable 03/14/17 14:30 Toxic Granulation Not Reportable 03/14/17 14:30 Toxic Vacuolation Not Reportable 03/14/17 14:30 Dohle Bodies Not Reportable 03/14/17 14:30 Pelger-Huet Anomaly Not Reportable 03/14/17 14:30 Jasmina Rods Not Reportable 03/14/17 14:30 Platelet Estimate Consistent w auto 03/14/17 14:30 Clumped Platelets Not Reportable 03/14/17 14:30 Plt Clumps, EDTA Not Reportable 03/14/17 14:30 Large Platelets Not Reportable 03/14/17 14:30 Giant Platelets Not Reportable 03/14/17 14:30 Platelet Satelliting Not Reportable 03/14/17 14:30 Plt Morphology Comment Not Reportable 03/14/17 14:30 RBC Morphology Not Reportable 03/14/17 14:30 Dimorphic RBCs Not Reportable 03/14/17 14:30 Polychromasia Not Reportable 03/14/17 14:30 Hypochromasia 2+ 03/14/17 14:30 Poikilocytosis Not Reportable 03/14/17 14:30 Anisocytosis 1+ 03/14/17 14:30 Microcytosis Not Reportable 03/14/17 14:30 Macrocytosis Not Reportable 03/14/17 14:30 Spherocytes Not Reportable 03/14/17 14:30 Pappenheimer Bodies Not Reportable 03/14/17 14:30 Sickle Cells Not Reportable 03/14/17 14:30 Target Cells Not Reportable 03/14/17 14:30 Tear Drop Cells Not Reportable 03/14/17 14:30 Ovalocytes Not Reportable 03/14/17 14:30 Stomatocytes 2+ 03/14/17 14:30 Helmet Cells Not Reportable 03/14/17 14:30 Monet-Filley Bodies Not Reportable 03/14/17 14:30 [place] Rings Not Reportable 03/14/17 14:30 Chuck Cells Not Reportable 03/14/17 14:30 Bite Cells Not Reportable 03/14/17 14:30 Crenated Cell Not Reportable 03/14/17 14:30 Elliptocytes Not Reportable 03/14/17 14:30 Acanthocytes (Spur) Not Reportable 03/14/17 14:30 Rouleaux Not Reportable 03/14/17 14:30 Hemoglobin C Crystals Not Reportable 03/14/17 14:30 Schistocytes Not Reportable 03/14/17 14:30 Malaria parasites Not Reportable 03/14/17 14:30 ESR > 140.0 mm/Hr (0-20) 09/08/16 11:48 Jun Bodies Not Reportable 03/14/17 14:30 Hem Pathologist Commnt No 03/14/17 14:30 PT 15.4 Sec. (12.2-14.9) H 01/13/17 15:50 INR 1.16 (0.87-1.13) H 01/13/17 15:50 APTT 33.0 Sec. (24.2-36.6) 10/09/16 03:45 Thrombin Time 16.8 Sec. (15.1-19.6) 09/03/16 00:10 Fibrinogen 750 mg/dl (211-480) H 09/08/16 11:48 Lupus Anticoagulant see below 09/12/16 09:59 LA PTT Baseline See scanned report 09/12/16 09:59 dRVVT Confirm Interp Positive (Negative) H 09/12/16 09:59 dRVVT Screen 50:50 See scanned report 09/12/16 09:59 dRVVT Mix Interpret See scanned report 09/12/16 09:59 Protein C Antigen 122 % (70-140) 09/08/16 15:35 Free Protein S 97 % normal (50-147) 09/08/16 15:35 Total Protein S 109 % (70-140) 09/08/16 15:35 Antithrombin III Ag 100 % (80-120) 09/08/16 15:35 Heparin Anti-Xa, Unfract Negative (Negative) 09/29/16 13:35 Factor V Activity 182 % (65-150) H 09/08/16 15:35 POC ABG pH 7.518 (7.35-7.45) H 03/03/17 20:17 ABG pH 7.450 pH Units (7.350-7.450) 12/05/16 Unknown POC ABG pCO2 28.8 (35-45) L 03/03/17 20:17 ABG pCO2 29.6 mm Hg 12/05/16 Unknown POC ABG pO2 61 (80-105) L 03/03/17 20:17 ABG pO2 75.2 mm Hg (80.0-90.0) L 12/05/16 Unknown POC ABG HCO3 23.4 03/03/17 20:17 ABG HCO3 20.1 mmol/L (20.0-26.0) 12/05/16 Unknown POC ABG Total CO2 24 03/03/17 20:17 POC ABG O2 Sat 94 03/03/17 20:17 ABG O2 Saturation 96.8 % (95.0-99.0) 12/05/16 Unknown ABG O2 Content 9.9 (0.0-44) 12/05/16 Unknown POC ABG Base Excess 0 03/03/17 20: ABG Base Excess -3.4 mmol/L (-2.0-3.0) L 12/05/16 Unknown ABG Hemoglobin 7.4 gm/dl (12.0-16.0) L 12/05/16 Unknown ABG Carboxyhemoglobin 1.8 % (0.0-5.0) 12/05/16 Unknown ABG Methemoglobin 0.6 % (0.0-1.5) 12/05/16 Unknown Oxyhemoglobin 94.5 % (95.0-99.0) L 12/05/16 Unknown FiO2 40 % 03/03/17 20:17 Sodium 142 mmol/L (137-145) 04/01/17 07:15 Potassium 3.7 mmol/L (3.6-5.0) 04/01/17 07:15 Chloride 102.0 mmol/L (98-107) 04/01/17 07:15 Carbon Dioxide 29 mmol/L (22-30) 04/01/17 07:15 Anion Gap 15 mmol/L 04/01/17 07:15 BUN 28 mg/dL (7-17) H 04/01/17 07:15 Creatinine 2.4 mg/dL (0.7-1.2) H 04/01/17 07:15 Estimated GFR 26 ml/min 04/01/17 07:15 BUN/Creatinine Ratio 12 % 04/01/17 07:15 Glucose 101 mg/dL (65-100) H 04/01/17 07:15 POC Glucose 87 (70-105) 04/01/17 17:55 Osmolality 351 Mosm/kg 09/16/16 11:47 Lactic Acid 2.30 mmol/L (0.7-2.0) H* 01/09/17 08:22 Calcium 9.0 mg/dL (8.4-10.2) 04/01/17 07:15 Ionized Calcium 6.0 mg/dL (4.8-5.6) H 02/15/17 19:08 Phosphorus 4.00 mg/dL (2.5-4.5) D 04/01/17 07:15 Magnesium 2.00 mg/dL (1.7-2.3) 04/01/17 07:15 Total Bilirubin 0.40 mg/dL (0.1-1.2) 03/20/17 Unknown Direct Bilirubin 0.2 mg/dL (0-0.2) 01/28/17 04:00 Indirect Bilirubin 0.3 mg/dL 01/28/17 04:00 AST 11 units/L (5-40) 03/20/17 Unknown ALT 6 units/L (7-56) L 03/20/17 Unknown Alkaline Phosphatase 97 units/L (35-129) 03/20/17 Unknown Ammonia 27.0 umol/L (25-60) 09/07/16 08:37 Lactate Dehydrogenase 170 units/L (91-180) 01/13/17 15:50 Total Creatine Kinase 121 units/L (30-135) 09/29/16 20:12 CK-MB (CK-2) < 1.0 ng/mL (0.0-4.0) 09/29/16 20:12 CK-MB (CK-2) Rel Index 0.8 (0-4) 09/29/16 20:12 Troponin T 0.204 ng/mL (0.00-0.029) H* 09/29/16 20:12 C-Reactive Protein 19.50 mg/dL (0.00-1.30) H 03/14/17 12:51 Total Protein 6.9 g/dL (6.3-8.2) 03/20/17 Unknown Albumin 0.9 g/dL (3.9-5) L 03/20/17 Unknown Albumin/Globulin Ratio 0.2 % 03/20/17 Unknown Prealbumin 0.110 g/L (0.200-0.400) L 12/29/16 05:15 Triglycerides 94 mg/dL (2-149) 03/20/17 Unknown Cholesterol 31 mg/dL (50-199) L 09/29/16 20:12 LDL Cholesterol Direct 4 mg/dL (50-130) L 09/29/16 20:12 HDL Cholesterol 3 mg/dL (40-59) L 09/29/16 20:12 Cholesterol/HDL Ratio 10.33 % 09/29/16 20:12 Angiotensin Convert Enz See scanned report 09/08/16 11:48 Renin 0.99 ng/mL/h (0.25-5.82) 10/07/16 10:56 Aldosterone <1 ng/dL () 10/07/16 10:56 Aldosterone/Renin Dir see below 10/07/16 10:56 Serotonin Release Assay See scanned report 09/29/16 13:35 25-OH Vitamin D Total 13 ng/mL (30-100) L 02/15/17 19:08 25-Hydroxy Vitamin D2 . 02/15/17 19:08 25-Hydroxy Vitamin D3 . 02/15/17 19:08 TSH 1.010 mlU/mL (0.270-4.200) 09/07/16 08:37 HCG, Qual Negative (Negative) 09/03/16 00:10 PTH Intact 10.88 pg/mL (15-65) L 02/15/17 19:08 Total Cortisol 18.2 mcg/dL () 02/02/17 20:09 Urine Color Yellow (Yellow) 11/05/16 13:09 Urine Turbidity Clear (Clear) 11/05/16 13:09 Urine pH 9.0 (5.0-7.0) H 11/05/16 13:09 Ur Specific [place] 1.011 (1.003-1.030) 11/05/16 13:09 Urine Protein 100 mg/dl mg/dL (Negative) 11/05/16 13:09 Urine Glucose (UA) Neg mg/dL (Negative) 11/05/16 13:09 Urine Ketones Neg mg/dL (Negative) 11/05/16 13:09 Urine Blood Neg (Negative) 11/05/16 13:09 Urine Nitrite Neg (Negative) 11/05/16 13:09 Urine Bilirubin Neg (Negative) 11/05/16 13:09 Urine Urobilinogen < 2.0 mg/dL (<2.0) 11/05/16 13:09 Ur Leukocyte Esterase Neg (Negative) 11/05/16 13:09 Urine WBC (Auto) 4.0 /HPF (0.0-6.0) 11/05/16 13:09 Urine RBC (Auto) 1.0 /HPF (0.0-6.0) 11/05/16 13:09 U Epithel Cells (Auto) 1.0 /HPF (0-13.0) 10/07/16 18:30 Urine Bacteria (Auto) 4+ /HPF (Negative) 11/05/16 13:09 Urine WBC Clumps 2+ /HPF 09/07/16 02:47 Hyaline Casts 4 /LPF 09/07/16 02:47 Urine Mucus Few /HPF 10/07/16 18:30 Urine Yeast (Budding) 3+ /HPF 10/07/16 18:30 Urine Eosinophils None seen (None Seen) 09/07/16 16:00 Urine Total Volume 950 11/12/16 10:18 Urine Creatinine 19.7 mg/dL (0.1-20.0) 11/12/16 10:18 Height (in) 65.0 inches 11/12/16 10:18 Weight (lb) 181.0 lbs 11/12/16 10:18 Creatinine Clearance 5 11/12/16 10:18 Urine Sodium 36 mEq/L 09/16/16 19:19 Urine Total Protein 16 mg/dL (5-11.8) H 09/16/16 19:19 Fluid Type Pleural 01/13/17 12:10 Fluid Color Yellow 01/13/17 12:10 Fluid Appearance Hazy 01/13/17 12:10 Fluid WBC 182 /mm3 01/13/17 12:10 Fluid RBC 41 /mm3 01/13/17 12:10 Fluid Seg Neutrophils 85.0 % 01/13/17 12:10 Fluid Lymphocytes 8.0 % 01/13/17 12:10 Fluid Reactive Lymphs 0 % 01/13/17 12:10 Fluid Monocytes 6.0 % 01/13/17 12:10 Fluid Eosinophils 1.0 % 01/13/17 12:10 Fluid Basophils 0 % 01/13/17 12:10 Fluid Total Protein 3.0 (15.0-45.0) L 01/13/17 12:10 Fluid LDH 1322 01/13/17 12:10 Fluid Comment Diff performed 01/13/17 12:10 Vancomycin Trough 2.3 ug/mL (5.0-20.0) L 09/21/16 13:00 Random Vancomycin 26.0 ug/mL (0-40.0) 03/13/17 05:39 Urine Opiates Screen Presumptive negative 09/03/16 15:11 Urine Methadone Screen Presumptive positive 09/03/16 15:11 Ur Barbiturates Screen Presumptive positive 09/03/16 15:11 Ur Phencyclidine Scrn Presumptive negative 09/03/16 15:11 Ur Amphetamines Screen Presumptive negative 09/03/16 15:11 U Benzodiazepines Scrn Presumptive negative 09/03/16 15:11 Urine Cocaine Screen Presumptive negative 09/03/16 15:11 U Marijuana (THC) Screen Presumptive positive 09/03/16 15:11 Drugs of Abuse Note Disclamer 09/03/16 15:11 Rheumatoid Factor 24 IU/ml (0-13) H 09/08/16 11:48 SAHIL Screen Negative (Negative) 09/07/16 09:20 Proteinase 3 (PR3) Ab <1.0 AI (<1.0) 09/07/16 09:20 Myeloperoxidase Ab <1.0 AI (<1.0) 09/07/16 09:20 Sjogren's Antibody <1.0 AI (<1.0) 09/08/16 15:35 Scl-70 Scleroderma Ab <1.0 AI (<1.0) 09/08/16 15:35 Centromere B Antibody <1.0 AI (<1.0) 09/08/16 12:02 Heparin-induced Plt Ab Negative (Negative) 09/29/16 13:35 UF Heparin High Dose 11 % Release 09/29/16 13:35 SUDHIR UFH Low Dose 0.1 6 % Release 09/29/16 13:35 SUDHIR UFH Low Dose 0.5 8 % Release 09/29/16 13:35 Cardiolipid IgG Ab <14 GPL (<=14) 09/12/16 09:59 Cardiolipid IgA Ab <11 APL (<=11) 09/12/16 09:59 Cardiolipid IgM Ab <12 MPL (<=12) 09/12/16 09:59 Complement C3 148 mg/dL (90-180) 09/07/16 09:20 Complement C4 58 mg/dL (16-47) H 09/07/16 09:20 RPR Nonreactive (Nonreactive) 09/08/16 11:48 Hepatitis A IgM Ab Non-reactive (NonReactive) 09/24/16 14:40 Hep Bs Antigen Non-reactive (Negative) 09/24/16 14:40 Hep B Core IgM Ab Non-reactive (NonReactive) 09/24/16 14:40 Hepatitis C Antibody Non-reactive (NonReactive) 09/24/16 14:40 HIV 1&2 Antibody Rapid Non react (Non React) 09/08/16 11:48 HIV P24 Antigen Non react (Non React) 09/08/16 11:48 Miscellaneous Test Flexitest 1 H 01/09/17 18:45 Blood Type A POSITIVE 03/20/17 16:00 Antibody Screen Negative 03/20/17 16:00 DELORIS Antibody Screen Negative 11/24/16 11:20 Crossmatch See Detail 03/20/17 16:00 - Imaging and Cardiology Chest x-ray: image reviewed CT scan - chest: image reviewed
[2017-04-01] MEDS ORDERED: TPN ADULT IV SCH (20:00)
[2017-04-01] MEDS: DILAUDID IV PRN (20:17)
[2017-04-02] MEDS: HumuLIN R SUB-Q SCH ×5 (00:20→18:37)
[2017-04-02] MEDS: LOPRESSOR IV SCH ×4 (01:34→18:36)
[2017-04-02] MEDS: DILAUDID IV PRN (03:21)
[2017-04-02] MEDS: DUONEB *Not for PRN Use IH SCH ×3 (08:48→19:52)
[2017-04-02] MEDS: HEPARIN SUB-Q SCH ×2 (10:20→23:06)
[2017-04-02] MEDS: PEPCID IV SCH (10:21)
--- NOTE | 2017-04-02 12:08 | Progress Note ---
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 UF as tolerated. Patient's serum creatinine is noted to be low - due to wasting of muscle mass. Needs to be maintained on dialysis at this time. * hypercalcemia work up - likely due to immobilization * Abx management per ID * Adjust Ca bath with dialysis prn * Transfuse pRBC per primary team. Epogen TIW prn * Vent management per pulm/CCM * Pressors prn for MAP>65 * Dose medications for renal function Subjective Date of service: 04/02/17 Principal diagnosis: Acute resp failure on MVS; S/P Acute CVA; Acute Encephalopathy; JUANITA Interval history: new events from last pm noted Objective - Exam Narrative Exam: Gen. appearance: Patient lying in bed, no apparent distress, 4. restraints HEENT: Normocephalic, atraumatic, pupils equally round and reactive to light, extraocular movement intact, and no sclericterus,. No JVD or thyromegaly or nodule,neck supple, no carotid bruit ,mucous membranes moist, unable to examine oral cavity Heart: S1, S2, regular rate and rhythm Lungs: Clear to auscultation bilaterally, breathing comfortable Abdomen: Positive bowel sounds, nontender, nondistended, no organomegaly Extremity: No edema, cyanosis, clubbing Skin: No rash, nodules, warm, dry Neuro: Difficult to assess, facial droop, moves all 4 extremities - Vital Signs Vital signs: Vital Signs - 12hr 04/02/17 04/02/17 04/02/17 00:15 01:00 01:34 Temperature Pulse Rate 92 H 93 H Respiratory 13 Rate Blood Pressure 128/85 129/90 O2 Sat by Pulse 100 100 Oximetry 04/02/17 04/02/17 04/02/17 02:00 03:00 04:00 Temperature 97.6 F Pulse Rate 89 92 H 84 Respiratory 12 12 13 Rate Blood Pressure 124/79 112/77 137/89 O2 Sat by Pulse 100 100 100 Oximetry 04/02/17 04/02/1704/02/18 05:00 06:00 06:34 Temperature Pulse Rate 85 75 80 Respiratory 12 12 Rate Blood Pressure 136/91 130/85 132/87 O2 Sat by Pulse 100 100 Oximetry 04/02/17 04/02/17 04/02/17 07:00 07:49 08:51 Temperature 97.5 F L Pulse Rate 77 77 Respiratory 12 27 H Rate Blood Pressure 130/91 130/91 O2 Sat by Pulse 100 Oximetry 04/02/17 11:49 Temperature 97.4 F L Pulse Rate Respiratory Rate Blood Pressure O2 Sat by Pulse Oximetry - Lab 03/27/17 05:30 04/01/17 07:15 Most recent lab results ABG pH 7.450 pH Units (7.350-7.450) 12/05/16 Unknown ABG pCO2 29.6 mm Hg 12/05/16 Unknown ABG pO2 75.2 mm Hg (80.0-90.0) L 12/05/16 Unknown ABG HCO3 20.1 mmol/L (20.0-26.0) 12/05/16 Unknown ABG O2 Saturation 96.8 % (95.0-99.0) 12/05/16 Unknown Calcium 9.0 mg/dL (8.4-10.2) 04/01/17 07:15 Phosphorus 4.00 mg/dL (2.5-4.5) D 04/01/17 07:15 Magnesium 2.00 mg/dL (1.7-2.3) 04/01/17 07:15 Urine Creatinine 19.7 mg/dL (0.1-20.0) 11/12/16 10:18 Urine Sodium 36 mEq/L 09/16/16 19:19 Urine Total Protein 16 mg/dL (5-11.8) H 09/16/16 19:19
[2017-04-02] MEDS ORDERED: TPN ADULT IV SCH (20:00)
--- NOTE | 2017-04-02 21:34 | Progress Note ---
Assessment and Plan Assessment and plan: Patient is 46-year-old woman with a history of hypertension, diabetes, asthma, hyperlipidemia, chronic kidney disease and anxiety , who was brought in by family because, she couldn't get her words out, her face was also twisted, she was admitted for acute CVA and accelerated hypertension, she had a hx of poor adherence with her medications, and uncontrolled htn. Patient's SBP on admission was noted be greater than 260. TPA was started but this was discontinued after 5 minutes because her blood pressure became uncontrolled. Since then she was worsened and has not regained her mental status, has been in a persistent vegetative state. She has had multiple infections has had sepsis requiring multiple rounds of antibiotics. She is also suffered from peritonitis , for which NG tube was removed and patient has since been on TPN. Chest required multiple transfusions. Prognosis has been poor and patient has been worsening. Her brother elected to make her DO NOT RESUSCITATE. Status post cardiac arrest , 11/21/16 on Mechanical ventilation >96 hrs, > 6 months Vent Dependant Respiratory failure secondary to Anoxic Brain injury S/P Tracheostomy ESRD - on HD Acute CVA with infarct -Unfortunately she is not in a persistent vegetative state. Unable to tolerate secondary prevention meds as she is now strict TPN Persistent vegetative state - This patient's needs placement at SNF - She was denied for LTACH -Family meeting planned for Monday at 10 AM Nosocomial acquired aspiration pneumonia/sepsis/UTI/PERITONITIS (Perforated bowel) - Has completed multiple courses of abx, and has had A. fib with RVR -On amio drip, cannot change to PO due to persistent nausea and vomiting, NPO Diabetes type 2. -Continue sliding-scale regular insulin and Accu-Cheks. Hyperlipidemia -Currently unable to tolerate statins Severe Protein calorie Malnutrition/Adult failure to thrive - TPN Anemia requiring multiple transfusions/acute blood loss -stable, keep hg above 7 Sacral decubitus ulcer and multiple lower extremity decubiti - Status post debridement -Wound vac in place Disposition. Very poor prognosis. DNR Family meeting was held on 03/31: family will likely to continue current rx, they want to keep her DNR. They are not ready to withdraw life support. They want to meet with Hospice floor representative, and will reconvene on Monday, they are aware of her extremely poor prognosis. - The high probability of a clinically significant, sudden or life threatening deterioration of the [neurologic, CV] system(s) required my full and direct attention, intervention and personal management. The aggregate critical care time was [35] minutes. This time is in addition to time spent performing reported procedures but includes the following: [x] Data Review and interpretation [x] Patient assessment and monitoring of vital signs [x] Documentation [x] Medication orders and management History Interval history: patient seen and examined, remains unresponsive on the ventilator. afebrile, no vomiting was tachypneic and tachycardic, overnight Hospitalist Physical - Physical exam Narrative exam: GEN: Ill appearing, trach, staring into space,, non purposeful movement NECK: SUPPLE, trach in place, ngt in place and to suction. CVS:Irregular Irregular with LUNGS/CHEST: NORMAL CHEST EXPANSION B, GOOD AIR ENTRY B, tachypena ABD: SOFT, no grimise on abdominal palpation, Ostomy bags at two side by side fistula site. GBS, NO REBOUND OR GUARDING, peg tube in place EXT/SKIN: NO SIGNIFICANT EDEMA BUT WITH UNSTAGEABLE SACRAL DECUB, MSK: +spontaneous non purposeful movement NEURO: on a ventilator and unresponsive despite being off sedation PSY: Comatose, - Constitutional Vitals: Temp Pulse Resp BP Pulse Ox 98.3 F 86 12 147/99 100 04/02/17 19:31 04/02/17 20:01 04/02/17 20:01 04/02/17 20:01 04/02/17 20:01 General appearance: Present: no acute distress, cachectic, other (spontaneous opening of eyes, unresponsive) Results - Labs CBC & Chem 7: 03/27/17 05:30 04/01/17 07:15 Labs: Laboratory Last Values WBC 5.5 K/mm3 (4.5-11.0) 03/27/17 05:30 RBC 2.95 M/mm3 (3.65-5.03) L 03/27/17 05:30 Hgb 8.9 gm/dl (10.1-14.3) L 03/27/17 05:30 Hct 28.7 % (30.3-42.9) L 03/27/17 05:30 MCV 97 fl (79-97) 03/27/17 05:30 MCH 30 pg (28-32) 03/27/17 05:30 MCHC 31 % (30-34) 03/27/17 05:30 RDW 24.4 % (13.2-15.2) H 03/27/17 05:30 Plt Count 156 K/mm3 (140-440) 03/27/17 05:30 Lymph % (Auto) 25.1 % (13.4-35.0) 03/27/17 05:30 [place] % (Auto) 8.6 % (0.0-7.3) H 03/27/17 05:30 Eos % (Auto) 3.9 % (0.0-4.3) 03/27/17 05:30 Baso % (Auto) 1.5 % (0.0-1.8) 03/27/17 05:30 Lymph # 1.4 K/mm3 (1.2-5.4) 03/27/17 05:30 [place] # 0.5 K/mm3 (0.0-0.8) 03/27/17 05:30 Eos # 0.2 K/mm3 (0.0-0.4) 03/27/17 05:30 Baso # 0.1 K/mm3 (0.0-0.1) 03/27/17 05:30 Add Manual Diff Complete 03/14/17 14:30 Total Counted 100 03/14/17 14:30 Seg Neutrophils % 60.9 % (40.0-70.0) 03/27/17 05:30 Seg Neuts % (Manual) 70.0 % (40.0-70.0) 03/14/17 14:30 Band Neutrophils % 0 % 03/14/17 14:30 Lymphocytes % (Manual) 13.0 % (13.4-35.0) L 03/14/17 14:30 Reactive Lymphs % (Man) 1.0 % 03/14/17 14:30 Monocytes % (Manual) 15.0 % (0.0-7.3) H 03/14/17 14:30 Eosinophils % (Manual) 1.0 % (0.0-4.3) 03/14/17 14:30 Basophils % (Manual) 0 % (0.0-1.8) 03/14/17 14:30 Metamyelocytes % 0 % 03/14/17 14:30 Myelocytes % 0 % 03/14/17 14:30 Promyelocytes % 0 % 03/14/17 14:30 Blast Cells % 0 % 03/14/17 14:30 Nucleated RBC % Not Reportable 03/14/17 14:30 Seg Neutrophils # 3.3 K/mm3 (1.8-7.7) 03/27/17 05:30 Seg Neutrophils # Man 12.3 K/mm3 (1.8-7.7) H 03/14/17 14:30 Band Neutrophils # 0.0 K/mm3 03/14/17 14:30 Lymphocytes # (Manual) 2.3 K/mm3 (1.2-5.4) 03/14/17 14:30 Abs React Lymphs (Man) 0.2 K/mm3 03/14/17 14:30 Monocytes # (Manual) 2.6 K/mm3 (0.0-0.8) H 03/14/17 14:30 Eosinophils # (Manual) 0.2 K/mm3 (0.0-0.4) 03/14/17 14:30 Basophils # (Manual) 0.0 K/mm3 (0.0-0.1) 03/14/17 14:30 Metamyelocytes # 0.0 K/mm3 03/14/17 14:30 Myelocytes # 0.0 K/mm3 03/14/17 14:30 Promyelocytes # 0.0 K/mm3 03/14/17 14:30 Blast Cells # 0.0 K/mm3 03/14/17 14:30 Pathologist Review 09/13/16 04:00 WBC Morphology Not Reportable 03/14/17 14:30 Hypersegmented Neuts Not Reportable 03/14/17 14:30 Hyposegmented Neuts Not Reportable 03/14/17 14:30 Hypogranular Neuts Not Reportable 03/14/17 14:30 Smudge Cells Not Reportable 03/14/17 14:30 Toxic Granulation Not Reportable 03/14/17 14:30 Toxic Vacuolation Not Reportable 03/14/17 14:30 Dohle Bodies Not Reportable 03/14/17 14:30 Pelger-Huet Anomaly Not Reportable 03/14/17 14:30 Jasmina Rods Not Reportable 03/14/17 14:30 Platelet Estimate Consistent w auto 03/14/17 14:30 Clumped Platelets Not Reportable 03/14/17 14:30 Plt Clumps, EDTA Not Reportable 03/14/17 14:30 Large Platelets Not Reportable 03/14/17 14:30 Giant Platelets Not Reportable 03/14/17 14:30 Platelet Satelliting Not Reportable 03/14/17 14:30 Plt Morphology Comment Not Reportable 03/14/17 14:30 RBC Morphology Not Reportable 03/14/17 14:30 Dimorphic RBCs Not Reportable 03/14/17 14:30 Polychromasia Not Reportable 03/14/17 14:30 Hypochromasia 2+ 03/14/17 14:30 Poikilocytosis Not Reportable 03/14/17 14:30 Anisocytosis 1+ 03/14/17 14:30 Microcytosis Not Reportable 03/14/17 14:30 Macrocytosis Not Reportable 03/14/17 14:30 Spherocytes Not Reportable 03/14/17 14:30 Pappenheimer Bodies Not Reportable 03/14/17 14:30 Sickle Cells Not Reportable 03/14/17 14:30 Target Cells Not Reportable 03/14/17 14:30 Tear Drop Cells Not Reportable 03/14/17 14:30 Ovalocytes Not Reportable 03/14/17 14:30 Stomatocytes 2+ 03/14/17 14:30 Helmet Cells Not Reportable 03/14/17 14:30 Monet-Manuel Garcia Ii Bodies Not Reportable 03/14/17 14:30 [place] Rings Not Reportable 03/14/17 14:30 [place] Cells Not Reportable 03/14/17 14:30 Bite Cells Not Reportable 03/14/17 14:30 Crenated Cell Not Reportable 03/14/17 14:30 Elliptocytes Not Reportable 03/14/17 14:30 Acanthocytes (Spur) Not Reportable 03/14/17 14:30 Rouleaux Not Reportable 03/14/17 14:30 Hemoglobin C Crystals Not Reportable 03/14/17 14:30 Schistocytes Not Reportable 03/14/17 14:30 Malaria parasites Not Reportable 03/14/17 14:30 ESR > 140.0 mm/Hr (0-20) 09/08/16 11:48 Jun Bodies Not Reportable 03/14/17 14:30 Hem Pathologist Commnt No 03/14/17 14:30 PT 15.4 Sec. (12.2-14.9) H 01/13/17 15:50 INR 1.16 (0.87-1.13) H 01/13/17 15:50 APTT 33.0 Sec. (24.2-36.6) 10/09/16 03:45 Thrombin Time 16.8 Sec. (15.1-19.6) 09/03/16 00:10 Fibrinogen 750 mg/dl (211-480) H 09/08/16 11:48 Lupus Anticoagulant see below 09/12/16 09:59 LA PTT Baseline See scanned report 09/12/16 09:59 dRVVT Confirm Interp Positive (Negative) H 09/12/16 09:59 dRVVT Screen 50:50 See scanned report 09/12/16 09:59 dRVVT Mix Interpret See scanned report 09/12/16 09:59 Protein C Antigen 122 % (70-140) 09/08/16 15:35 Free Protein S 97 % normal (50-147) 09/08/16 15:35 Total Protein S 109 % (70-140) 09/08/16 15:35 Antithrombin III Ag 100 % (80-120) 09/08/16 15:35 Heparin Anti-Xa, Unfract Negative (Negative) 09/29/16 13:35 Factor V Activity 182 % (65-150) H 09/08/16 15:35 POC ABG pH 7.518 (7.35-7.45) H 03/03/17 20:17 ABG pH 7.450 pH Units (7.350-7.450) 12/05/16 Unknown POC ABG pCO2 28.8 (35-45) L 03/03/17 20:17 ABG pCO2 29.6 mm Hg 12/05/16 Unknown POC ABG pO2 61 (80-105) L 03/03/17 20: ABG pO2 75.2 mm Hg (80.0-90.0) L 12/05/16 Unknown POC ABG HCO3 23.4 03/03/17 20:17 ABG HCO3 20.1 mmol/L (20.0-26.0) 12/05/16 Unknown POC ABG Total CO2 24 03/03/17 20:17 POC ABG O2 Sat 94 03/03/17 20:17 ABG O2 Saturation 96.8 % (95.0-99.0) 12/05/16 Unknown ABG O2 Content 9.9 (0.0-44) 12/05/16 Unknown POC ABG Base Excess 0 03/03/17 20:17 ABG Base Excess -3.4 mmol/L (-2.0-3.0) L 12/05/16 Unknown ABG Hemoglobin 7.4 gm/dl (12.0-16.0) L 12/05/16 Unknown ABG Carboxyhemoglobin 1.8 % (0.0-5.0) 12/05/16 Unknown ABG Methemoglobin 0.6 % (0.0-1.5) 12/05/16 Unknown Oxyhemoglobin 94.5 % (95.0-99.0) L 12/05/16 Unknown FiO2 40 % 03/03/17 20:17 Sodium 142 mmol/L (137-145) 04/01/17 07:15 Potassium 3.7 mmol/L (3.6-5.0) 04/01/17 07:15 Chloride 102.0 mmol/L (98-107) 04/01/17 07:15 Carbon Dioxide 29 mmol/L (22-30) 04/01/17 07:15 Anion Gap 15 mmol/L 04/01/17 07:15 BUN 28 mg/dL (7-17) H 04/01/17 07:15 Creatinine 2.4 mg/dL (0.7-1.2) H 04/01/17 07:15 Estimated GFR 26 ml/min 04/01/17 07:15 BUN/Creatinine Ratio 12 % 04/01/17 07:15 Glucose 101 mg/dL (65-100) H 04/01/17 07:15 POC Glucose 95 (70-105) 04/02/17 17:17 Osmolality 351 Mosm/kg 09/16/16 11:47 Lactic Acid 2.30 mmol/L (0.7-2.0) H* 01/09/17 08:22 Calcium 9.0 mg/dL (8.4-10.2) 04/01/17 07:15 Ionized Calcium 6.0 mg/dL (4.8-5.6) H 02/15/17 19:08 Phosphorus 4.00 mg/dL (2.5-4.5) D 04/01/17 07:15 Magnesium 2.00 mg/dL (1.7-2.3) 04/01/17 07:15 Total Bilirubin 0.40 mg/dL (0.1-1.2) 03/20/17 Unknown Direct Bilirubin 0.2 mg/dL (0-0.2) 01/28/17 04:00 Indirect Bilirubin 0.3 mg/dL 01/28/17 04:00 AST 11 units/L (5-40) 03/20/17 Unknown ALT 6 units/L (7-56) L 03/20/17 Unknown Alkaline Phosphatase 97 units/L (35-129) 03/20/17 Unknown Ammonia 27.0 umol/L (25-60) 09/07/16 08:37 Lactate Dehydrogenase 170 units/L (91-180) 01/13/17 15:50 Total Creatine Kinase 121 units/L (30-135) 09/29/16 20:12 CK-MB (CK-2) < 1.0 ng/mL (0.0-4.0) 09/29/16 20:12 CK-MB (CK-2) Rel Index 0.8 (0-4) 09/29/16 20:12 Troponin T 0.204 ng/mL (0.00-0.029) H* 09/29/16 20:12 C-Reactive Protein 19.50 mg/dL (0.00-1.30) H 03/14/17 12:51 Total Protein 6.9 g/dL (6.3-8.2) 03/20/17 Unknown Albumin 0.9 g/dL (3.9-5) L 03/20/17 Unknown Albumin/Globulin Ratio 0.2 % 03/20/17 Unknown Prealbumin 0.110 g/L (0.200-0.400) L 12/29/16 05:15 Triglycerides 94 mg/dL (2-149) 03/20/17 Unknown Cholesterol 31 mg/dL (50-199) L 09/29/16 20:12 LDL Cholesterol Direct 4 mg/dL (50-130) L 09/29/16 20:12 HDL Cholesterol 3 mg/dL (40-59) L 09/29/16 20:12 Cholesterol/HDL Ratio 10.33 % 09/29/16 20:12 Angiotensin Convert Enz See scanned report 09/08/16 11:48 Renin 0.99 ng/mL/h (0.25-5.82) 10/07/16 10:56 Aldosterone <1 ng/dL () 10/07/16 10:56 Aldosterone/Renin Dir see below 10/07/16 10:56 Serotonin Release Assay See scanned report 09/29/16 13:35 25-OH Vitamin D Total 13 ng/mL (30-100) L 02/15/17 19:08 25-Hydroxy Vitamin D2 . 02/15/17 19:08 25-Hydroxy Vitamin D3 . 02/15/17 19:08 TSH 1.010 mlU/mL (0.270-4.200) 09/07/16 08:37 HCG, Qual Negative (Negative) 09/03/16 00:10 PTH Intact 10.88 pg/mL (15-65) L 02/15/17 19:08 Total Cortisol 18.2 mcg/dL () 02/02/17 20:09 Urine Color Yellow (Yellow) 11/05/16 13:09 Urine Turbidity Clear (Clear) 11/05/16 13:09 Urine pH 9.0 (5.0-7.0) H 11/05/16 13:09 Ur Specific [place] 1.011 (1.003-1.030) 11/05/16 13:09 Urine Protein 100 mg/dl mg/dL (Negative) 11/05/16 13:09 Urine Glucose (UA) Neg mg/dL (Negative) 11/05/16 13:09 Urine Ketones Neg mg/dL (Negative) 11/05/16 13:09 Urine Blood Neg (Negative) 11/05/16 13:09 Urine Nitrite Neg (Negative) 11/05/16 13:09 Urine Bilirubin Neg (Negative) 11/05/16 13:09 Urine Urobilinogen < 2.0 mg/dL (<2.0) 11/05/16 13:09 Ur Leukocyte Esterase Neg (Negative) 11/05/16 13:09 Urine WBC (Auto) 4.0 /HPF (0.0-6.0) 11/05/16 13:09 Urine RBC (Auto) 1.0 /HPF (0.0-6.0) 11/05/16 13:09 U Epithel Cells (Auto) 1.0 /HPF (0-13.0) 10/07/16 18:30 Urine Bacteria (Auto) 4+ /HPF (Negative) 11/05/16 13:09 Urine WBC Clumps 2+ /HPF 09/07/16 02:47 Hyaline Casts 4 /LPF 09/07/16 02:47 Urine Mucus Few /HPF 10/07/16 18:30 Urine Yeast (Budding) 3+ /HPF 10/07/16 18:30 Urine Eosinophils None seen (None Seen) 09/07/16 16:00 Urine Total Volume 950 11/12/16 10:18 Urine Creatinine 19.7 mg/dL (0.1-20.0) 11/12/16 10:18 Height (in) 65.0 inches 11/12/16 10:18 Weight (lb) 181.0 lbs 11/12/16 10:18 Creatinine Clearance 5 11/12/16 10:18 Urine Sodium 36 mEq/L 09/16/16 19:19 Urine Total Protein 16 mg/dL (5-11.8) H 09/16/16 19:19 Fluid Type Pleural 01/13/17 12:10 Fluid Color Yellow 01/13/17 12:10 Fluid Appearance Hazy 01/13/17 12:10 Fluid WBC 182 /mm3 01/13/17 12:10 Fluid RBC 41 /mm3 01/13/17 12:10 Fluid Seg Neutrophils 85.0 % 01/13/17 12:10 Fluid Lymphocytes 8.0 % 01/13/17 12:10 Fluid Reactive Lymphs 0 % 01/13/17 12:10 Fluid Monocytes 6.0 % 01/13/17 12:10 Fluid Eosinophils 1.0 % 01/13/17 12:10 Fluid Basophils 0 % 01/13/17 12:10 Fluid Total Protein 3.0 (15.0-45.0) L 01/13/17 12:10 Fluid LDH 1322 01/13/17 12:10 Fluid Comment Diff performed 01/13/17 12:10 Vancomycin Trough 2.3 ug/mL (5.0-20.0) L 09/21/16 13:00 Random Vancomycin 26.0 ug/mL (0-40.0) 03/13/17 05:39 Urine Opiates Screen Presumptive negative 09/03/16 15:11 Urine Methadone Screen Presumptive positive 09/03/16 15:11 Ur Barbiturates Screen Presumptive positive 09/03/16 15:11 Ur Phencyclidine Scrn Presumptive negative 09/03/16 15:11 Ur Amphetamines Screen Presumptive negative 09/03/16 15:11 U Benzodiazepines Scrn Presumptive negative 09/03/16 15:11 Urine Cocaine Screen Presumptive negative 09/03/16 15:11 U Marijuana (THC) Screen Presumptive positive 09/03/16 15:11 Drugs of Abuse Note Disclamer 09/03/16 15:11 Rheumatoid Factor 24 IU/ml (0-13) H 09/08/16 11:48 SAHIL Screen Negative (Negative) 09/07/16 09:20 Proteinase 3 (PR3) Ab <1.0 AI (<1.0) 09/07/16 09:20 Myeloperoxidase Ab <1.0 AI (<1.0) 09/07/16 09:20 Sjogren's Antibody <1.0 AI (<1.0) 09/08/16 15:35 Scl-70 Scleroderma Ab <1.0 AI (<1.0) 09/08/16 15:35 Centromere B Antibody <1.0 AI (<1.0) 09/08/16 12:02 Heparin-induced Plt Ab Negative (Negative) 09/29/16 13:35 UF Heparin High Dose 11 % Release 09/29/16 13:35 SUDHIR UFH Low Dose 0.1 6 % Release 09/29/16 13:35 SUDHIR UFH Low Dose 0.5 8 % Release 09/29/16 13:35 Cardiolipid IgG Ab <14 GPL (<=14) 09/12/16 09:59 Cardiolipid IgA Ab <11 APL (<=11) 09/12/16 09:59 Cardiolipid IgM Ab <12 MPL (<=12) 09/12/16 09:59 Complement C3 148 mg/dL (90-180) 09/07/16 09:20 Complement C4 58 mg/dL (16-47) H 09/07/16 09:20 RPR Nonreactive (Nonreactive) 09/08/16 11:48 Hepatitis A IgM Ab Non-reactive (NonReactive) 09/24/16 14:40 Hep Bs Antigen Non-reactive (Negative) 09/24/16 14:40 Hep B Core IgM Ab Non-reactive (NonReactive) 09/24/16 14:40 Hepatitis C Antibody Non-reactive (NonReactive) 09/24/16 14:40 HIV 1&2 Antibody Rapid Non react (Non React) 09/08/16 11:48 HIV P24 Antigen Non react (Non React) 09/08/16 11:48 Miscellaneous Test Flexitest 1 H 01/09/17 18:45 Blood Type A POSITIVE 03/20/17 16:00 Antibody Screen Negative 03/20/17 16:00 DELORIS Antibody Screen Negative 11/24/16 11:20 Crossmatch See Detail 03/20/17 16:00
[2017-04-03] MEDS: HumuLIN R SUB-Q SCH ×4 (01:03→18:40)
[2017-04-03] MEDS: LOPRESSOR IV SCH ×4 (01:07→18:39)
[2017-04-03] MEDS: DILAUDID IV PRN ×2 (04:10→10:19)
[2017-04-03 04:33] LABS: Calcium 9.1 mg/dL (8.4-10.2)
[2017-04-03] MEDS: APRESOLINE IV PRN (08:30)
--- NOTE | 2017-04-03 09:25 | Progress Note ---
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 UF as tolerated. Patient's serum creatinine is noted to be low - due to wasting of muscle mass. Needs to be maintained on dialysis at this time. * hypercalcemia work up - likely due to immobilization * Abx management per ID * Adjust Ca bath with dialysis prn * Transfuse pRBC per primary team. Epogen TIW prn * Vent management per pulm/CCM * Pressors prn for MAP>65 * Dose medications for renal function Subjective Date of service: 04/03/17 Principal diagnosis: Acute resp failure on MVS; S/P Acute CVA; Acute Encephalopathy; JUANITA Interval history: new events from last pm noted Objective - Exam Narrative Exam: Gen. appearance: Patient lying in bed, no apparent distress, 4. restraints HEENT: Normocephalic, atraumatic, pupils equally round and reactive to light, extraocular movement intact, and no sclericterus,. No JVD or thyromegaly or nodule,neck supple, no carotid bruit ,mucous membranes moist, unable to examine oral cavity Heart: S1, S2, regular rate and rhythm Lungs: Clear to auscultation bilaterally, breathing comfortable Abdomen: Positive bowel sounds, nontender, nondistended, no organomegaly Extremity: No edema, cyanosis, clubbing Skin: No rash, nodules, warm, dry Neuro: Difficult to assess, facial droop, moves all 4 extremities - Vital Signs Vital signs: Vital Signs - 12hr 04/02/17 04/02/17 04/02/17 22:00 23:00 23:01 Temperature Pulse Rate 96 H 87 90 Respiratory 13 18 12 Rate Blood Pressure 173/118 146/93 146/93 O2 Sat by Pulse 100 100 100 Oximetry 04/02/17 04/03/17 04/03/17 23:35 00:00 01:00 Temperature 98.8 F Pulse Rate 91 H 92 H 97 H Respiratory 13 13 Rate Blood Pressure 153/101 155/101 167/103 O2 Sat by Pulse 100 100 100 Oximetry 04/03/17 04/03/17 04/03/17 01:07 02:00 03:00 Temperature Pulse Rate 92 H 86 91 H Respiratory 12 14 Rate Blood Pressure 155/101 158/106 173/112 O2 Sat by Pulse 100 100 Oximetry 04/03/17 04/03/17 04/03/17 03:45 04:00 05:00 Temperature 97.9 F 97.9 F Pulse Rate 93 H 101 H Respiratory 13 20 Rate Blood Pressure 175/109 158/97 O2 Sat by Pulse 100 90 Oximetry 04/03/17 04/03/17 04/03/17 06:00 06:41 08:00 Temperature 98.6 F Pulse Rate 95 H 95 H Respiratory 15 Rate Blood Pressure 160/103 160/103 O2 Sat by Pulse 99 Oximetry 04/03/17 08:30 Temperature Pulse Rate 99 H Respiratory Rate Blood Pressure 181/112 O2 Sat by Pulse Oximetry - Lab 03/27/17 05:30 04/03/17 04:00 Most recent lab results ABG pH 7.450 pH Units (7.350-7.450) 12/05/16 Unknown ABG pCO2 29.6 mm Hg 12/05/16 Unknown ABG pO2 75.2 mm Hg (80.0-90.0) L 12/05/16 Unknown ABG HCO3 20.1 mmol/L (20.0-26.0) 12/05/16 Unknown ABG O2 Saturation 96.8 % (95.0-99.0) 12/05/16 Unknown Calcium 9.1 mg/dL (8.4-10.2) 04/03/17 04:00 Phosphorus 4.90 mg/dL (2.5-4.5) H 04/03/17 04:00 Magnesium 2.10 mg/dL (1.7-2.3) 04/03/17 04:00 Urine Creatinine 19.7 mg/dL (0.1-20.0) 11/12/16 10:18 Urine Sodium 36 mEq/L 09/16/16 19:19 Urine Total Protein 16 mg/dL (5-11.8) H 09/16/16 19:19
[2017-04-03] MEDS: DUONEB *Not for PRN Use IH SCH ×3 (10:01→20:00)
[2017-04-03] MEDS: PEPCID IV SCH (10:09)
[2017-04-03] MEDS: HEPARIN SUB-Q SCH ×2 (10:09→23:08)
[2017-04-03 12:23] LABS: Hematocrit 24.1 % (30.3-42.9); Hemoglobin 7.7 gm/dl (10.1-14.3); Mean Corpuscular HGB Conc 32 % (30-34); Mean Corpuscular Hemoglobin 32 pg (28-32); Mean Corpuscular Volume 101 fl (79-97); Platelet Count 251 K/mm3 (140-440)
[2017-04-03 12:37] LABS: Red Cell Distribution Width 23.1 % (13.2-15.2)
[2017-04-03] MEDS: ALBURX 25% (ALBUMIN) IV PRN (15:27)
[2017-04-03] MEDS: HEPARIN IV PRN (16:36)
[2017-04-03] MEDS: TRANSDERM-SCOP TD SCH (18:39)
[2017-04-03] MEDS ORDERED: TPN ADULT IV SCH (20:00)
[2017-04-03] MEDS ORDERED: INTRALIPID 20% 250 ML IV SCH (20:00)
[2017-04-04] MEDS: LOPRESSOR IV SCH ×4 (00:32→18:23)
[2017-04-04] MEDS: DILAUDID IV PRN (05:48)
[2017-04-04] MEDS: HumuLIN R SUB-Q SCH ×3 (06:29→18:25)
[2017-04-04 07:16] LABS: Blood Urea Nitrogen TNR mg/dL (7-17)
[2017-04-04 07:17] LABS: Alanine Aminotransferase TNR units/L (7-56); BUN/Creatinine Ratio TNR; Calcium TNR mg/dL (8.4-10.2)
[2017-04-04 07:18] LABS: Albumin TNR g/dL (3.9-5); Hemolysis Index TNR
[2017-04-04] MEDS: DUONEB *Not for PRN Use IH SCH ×3 (09:04→19:33)
[2017-04-04 09:34] LABS: Albumin 1.8 g/dL (3.9-5); Calcium 9.1 mg/dL (8.4-10.2)
--- NOTE | 2017-04-04 10:36 | Progress Note ---
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 UF as tolerated. Patient's serum creatinine is noted to be low - due to wasting of muscle mass. Needs to be maintained on dialysis at this time. * hypercalcemia work up - likely due to immobilization * Abx management per ID * Adjust Ca bath with dialysis prn * Transfuse pRBC per primary team. Epogen TIW prn * Vent management per pulm/CCM * Pressors prn for MAP>65 * Dose medications for renal function Subjective Date of service: 04/04/17 Principal diagnosis: Acute resp failure on MVS; S/P Acute CVA; Acute Encephalopathy; JUANITA Interval history: new events from last pm noted Objective - Exam Narrative Exam: Gen. appearance: Patient lying in bed, no apparent distress, 4. restraints HEENT: Normocephalic, atraumatic, pupils equally round and reactive to light, extraocular movement intact, and no sclericterus,. No JVD or thyromegaly or nodule,neck supple, no carotid bruit ,mucous membranes moist, unable to examine oral cavity Heart: S1, S2, regular rate and rhythm Lungs: Clear to auscultation bilaterally, breathing comfortable Abdomen: Positive bowel sounds, nontender, nondistended, no organomegaly Extremity: No edema, cyanosis, clubbing Skin: No rash, nodules, warm, dry Neuro: Difficult to assess, facial droop, moves all 4 extremities - Vital Signs Vital signs: Vital Signs - 12hr 04/03/17 04/04/17 04/04/17 23:00 00:00 00:32 Temperature 99.2 F Pulse Rate 109 H 109 H 109 H Pulse Rate [ Apical] Pulse Rate [ From Monitor] Pulse Rate [ Throughout] Respiratory 29 H 29 H Rate Respiratory Rate [ Throughout] Blood Pressure 133/98 153/102 153/102 O2 Sat by Pulse 99 100 Oximetry 04/04/17 04/04/17 04/04/17 00:35 00:38 01:00 Temperature 99.2 F Pulse Rate 103 H 104 H Pulse Rate [ Apical] Pulse Rate [ From Monitor] Pulse Rate [ Throughout] Respiratory 30 H Rate Respiratory Rate [ Throughout] Blood Pressure 153/109 160/113 O2 Sat by Pulse 100 Oximetry 04/04/17 04/04/17 04/04/17 02:00 03:00 04:00 Temperature Pulse Rate 108 H 111 H 110 H Pulse Rate [ Apical] Pulse Rate [ From Monitor] Pulse Rate [ Throughout] Respiratory 28 H 29 H 29 H Rate Respiratory Rate [ Throughout] Blood Pressure 154/104 150/108 149/10 O2 Sat by Pulse 99 Oximetry 04/04/17 04/04/17 04/04/17 04:11 05:00 05:47 Temperature 98.5 F Pulse Rate 111 H 111 H Pulse Rate [ Apical] Pulse Rate [ From Monitor] Pulse Rate [ Throughout] Respiratory 30 H Rate Respiratory Rate [ Throughout] Blood Pressure 143/94 151/98 O2 Sat by Pulse Oximetry 04/04/17 04/04/17 04/04/17 06:00 07:00 07:30 Temperature Pulse Rate 110 H 92 H Pulse Rate [ 82 Apical] Pulse Rate [ 82 From Monitor] Pulse Rate [ Throughout] Respiratory 27 H 29 H 25 H Rate Respiratory Rate [ Throughout] Blood Pressure 151/98 110/74 O2 Sat by Pulse 99 100 100 Oximetry 04/04/17 04/04/17 04/04/17 08:00 08:58 09:00 Temperature 98.6 F Pulse Rate 93 H 93 H 95 H Pulse Rate [ Apical] Pulse Rate [ From Monitor] Pulse Rate [ Throughout] Respiratory 29 H 14 Rate Respiratory Rate [ Throughout] Blood Pressure 130/90 142/92 150/96 O2 Sat by Pulse 100 100 100 Oximetry 04/04/17 09:04 Temperature Pulse Rate Pulse Rate [ Apical] Pulse Rate [ From Monitor] Pulse Rate [ 97 H Throughout] Respiratory Rate Respiratory 12 Rate [ Throughout] Blood Pressure O2 Sat by Pulse Oximetry - Lab 04/03/17 11:40 04/04/17 07:20 Most recent lab results ABG pH 7.450 pH Units (7.350-7.450) 12/05/16 Unknown ABG pCO2 29.6 mm Hg 12/05/16 Unknown ABG pO2 75.2 mm Hg (80.0-90.0) L 12/05/16 Unknown ABG HCO3 20.1 mmol/L (20.0-26.0) 12/05/16 Unknown ABG O2 Saturation 96.8 % (95.0-99.0) 12/05/16 Unknown Calcium 9.1 mg/dL (8.4-10.2) 04/04/17 07:20 Phosphorus 1.50 mg/dL (2.5-4.5) L D 04/04/17 07:20 Magnesium 1.60 mg/dL (1.7-2.3) L 04/04/17 07:20 Urine Creatinine 19.7 mg/dL (0.1-20.0) 11/12/16 10:18 Urine Sodium 36 mEq/L 09/16/16 19:19 Urine Total Protein 16 mg/dL (5-11.8) H 09/16/16 19:19
[2017-04-04] MEDS: HEPARIN SUB-Q SCH ×2 (10:53→21:39)
[2017-04-04] MEDS: PEPCID IV SCH (10:53)
--- NOTE | 2017-04-04 11:21 | Progress Note ---
Assessment and Plan Assessment and plan: 47-year-old female patient multiple medical problems, large CVA , hypoxic encephalopathy , status post cardiac arrest , vegetative state , atrial fibrillation , sepsis , aspiration pneumonia , end- stage renal disease on hemodialysis , multiple sacral and lower extremity decubiti requiring debridement , severe protein calorie malnutrition peritonitis / perforation, multiple surgeries, DO NOT RESUSCITATE status,prolonged hospital stay and poor prognosis, --Hypokalemia; replace per protocol and monitor levels --Hypomagnesemia/hypophosphatemia; replace per protocol and monitor levels --Acute respiratory failure/status post tracheostomy/ventilator dependent/ continue current management --Aspiration pneumonia/managed with multiple antibiotics per ID currently on daptomycin and Zosyn --Status post cardiac arrest/anoxic encephalopathy/vegetative state --Large CVA with mass effect/anoxic brain injury --Perforated bowel/drainage of large fluid collection, continue supportive care --Peritonitis/gastric perforation/status post laparotomy/on TPN --A. fib with rapid ventricular rate/continue amiodarone --Sepsis/recurrent enterococcal infection/ID following/continue current antibiotics --Hypotension/septic shock requiring Levophed, closely monitor --End-stage renal disease; on hemodialysis, nephrology following --Multiple sacral decubiti stage III to stage IV, post debridement, continue wound care --Severe protein calorie malnutrition; continue TPN, supportive care --DO NOT RESUSCITATE status, recommend hospice[family not willing] Very poor prognosis, family aware, recommend hospice, family not willing Unable to place in LTAC/SNF, Multiple social issues Disposition; continue current management, await placement Plan of care discussed with the patient's nurse History Interval history: Patient seen and evaluated medical records reviewed No new events reported Remain on ventilatory support via tracheostomy Unresponsive Vital signs reviewed Hospitalist Physical - Constitutional Vitals: Temp Pulse Resp BP Pulse Ox 98.6 F 114 H 16 162/102 100 04/04/17 08:00 04/04/17 10:00 04/04/17 10:00 04/04/17 10:04/04/17 10:00 General appearance: Present: no acute distress, cachectic, other (spontaneous opening of eyes, unresponsive) - EENT Eyes: Present: PERRL - Neck Neck: Present: supple - Respiratory Respiratory effort: normal Respiratory: bilateral: diminished, rhonchi, negative: rales, wheezing - Cardiovascular Rhythm: irregularly irregular Heart Sounds: Present: S1 & S2 - Extremities Extremities: abnormal (contracted) Extremity abnormal: edema - Abdominal General gastrointestinal: soft, non-distended, hypoactive bowel sounds - Integumentary Integumentary: Present: clear, warm - Psychiatric Psychiatric: other (unresponsive) - Neurologic Neurologic: other (unresponsive) Results - Labs CBC & Chem 7: 04/03/17 11:40 04/04/17 07:20 Labs: Laboratory Last Values WBC 4.7 K/mm3 (4.5-11.0) 04/03/17 11:40 RBC 2.40 M/mm3 (3.65-5.03) L 04/03/17 11:40 Hgb 7.7 gm/dl (10.1-14.3) L 04/03/17 11:40 Hct 24.1 % (30.3-42.9) L 04/03/17 11:40 MCV 101 fl (79-97) H 04/03/17 11:40 MCH 32 pg (28-32) 04/03/17 11:40 MCHC 32 % (30-34) 04/03/17 11:40 RDW 23.1 % (13.2-15.2) H 04/03/17 11:40 Plt Count 251 K/mm3 (140-440) 04/03/17 11:40 Lymph % (Auto) 25.1 % (13.4-35.0) 03/27/17 05:30 [place] % (Auto) 8.6 % (0.0-7.3) H 03/27/17 05:30 Eos % (Auto) 3.9 % (0.0-4.3) 03/27/17 05:30 Baso % (Auto) 1.5 % (0.0-1.8) 03/27/17 05:30 Lymph # 1.4 K/mm3 (1.2-5.4) 03/27/17 05:30 [place] # 0.5 K/mm3 (0.0-0.8) 03/27/17 05:30 Eos # 0.2 K/mm3 (0.0-0.4) 03/27/17 05:30 Baso # 0.1 K/mm3 (0.0-0.1) 03/27/17 05:30 Add Manual Diff Complete 03/14/17 14:30 Total Counted 100 03/14/17 14:30 Seg Neutrophils % 60.9 % (40.0-70.0) 03/27/17 05:30 Seg Neuts % (Manual) 70.0 % (40.0-70.0) 03/14/17 14:30 Band Neutrophils % 0 % 03/14/17 14:30 Lymphocytes % (Manual) 13.0 % (13.4-35.0) L 03/14/17 14:30 Reactive Lymphs % (Man) 1.0 % 03/14/17 14:30 Monocytes % (Manual) 15.0 % (0.0-7.3) H 03/14/17 14:30 Eosinophils % (Manual) 1.0 % (0.0-4.3) 03/14/17 14:30 Basophils % (Manual) 0 % (0.0-1.8) 03/14/17 14:30 Metamyelocytes % 0 % 03/14/17 14:30 Myelocytes % 0 % 03/14/17 14:30 Promyelocytes % 0 % 03/14/17 14:30 Blast Cells % 0 % 03/14/17 14:30 Nucleated RBC % Not Reportable 03/14/17 14:30 Seg Neutrophils # 3.3 K/mm3 (1.8-7.7) 03/27/17 05:30 Seg Neutrophils # Man 12.3 K/mm3 (1.8-7.7) H 03/14/17 14:30 Band Neutrophils # 0.0 K/mm3 03/14/17 14:30 Lymphocytes # (Manual) 2.3 K/mm3 (1.2-5.4) 03/14/17 14:30 Abs React Lymphs (Man) 0.2 K/mm3 03/14/17 14:30 Monocytes # (Manual) 2.6 K/mm3 (0.0-0.8) H 03/14/17 14:30 Eosinophils # (Manual) 0.2 K/mm3 (0.0-0.4) 03/14/17 14:30 Basophils # (Manual) 0.0 K/mm3 (0.0-0.1) 03/14/17 14:30 Metamyelocytes # 0.0 K/mm3 03/14/17 14:30 Myelocytes # 0.0 K/mm3 03/14/17 14:30 Promyelocytes # 0.0 K/mm3 03/14/17 14:30 Blast Cells # 0.0 K/mm3 03/14/17 14:30 Pathologist Review 09/13/16 04:00 WBC Morphology Not Reportable 03/14/17 14:30 Hypersegmented Neuts Not Reportable 03/14/17 14:30 Hyposegmented Neuts Not Reportable 03/14/17 14:30 Hypogranular Neuts Not Reportable 03/14/17 14:30 Smudge Cells Not Reportable 03/14/17 14:30 Toxic Granulation Not Reportable 03/14/17 14:30 Toxic Vacuolation Not Reportable 03/14/17 14:30 Dohle Bodies Not Reportable 03/14/17 14:30 Pelger-Huet Anomaly Not Reportable 03/14/17 14:30 Jasmina Rods Not Reportable 03/14/17 14:30 Platelet Estimate Consistent w auto 03/14/17 14:30 Clumped Platelets Not Reportable 03/14/17 14:30 Plt Clumps, EDTA Not Reportable 03/14/17 14:30 Large Platelets Not Reportable 03/14/17 14:30 Giant Platelets Not Reportable 03/14/17 14:30 Platelet Satelliting Not Reportable 03/14/17 14:30 Plt Morphology Comment Not Reportable 03/14/17 14:30 RBC Morphology Not Reportable 03/14/17 14:30 Dimorphic RBCs Not Reportable 03/14/17 14:30 Polychromasia Not Reportable 03/14/17 14:30 Hypochromasia 2+ 03/14/17 14:30 Poikilocytosis Not Reportable 03/14/17 14:30 Anisocytosis 1+ 03/14/17 14:30 Microcytosis Not Reportable 03/14/17 14:30 Macrocytosis Not Reportable 03/14/17 14:30 Spherocytes Not Reportable 03/14/17 14:30 Pappenheimer Bodies Not Reportable 03/14/17 14:30 Sickle Cells Not Reportable 03/14/17 14:30 Target Cells Not Reportable 03/14/17 14:30 Tear Drop Cells Not Reportable 03/14/17 14:30 Ovalocytes Not Reportable 03/14/17 14:30 Stomatocytes 2+ 03/14/17 14:30 Helmet Cells Not Reportable 03/14/17 14:30 Monet-Hobucken Bodies Not Reportable 03/14/17 14:30 [place] Rings Not Reportable 03/14/17 14:30 Pearce Cells Not Reportable 03/14/17 14:30 Bite Cells Not Reportable 03/14/17 14:30 Crenated Cell Not Reportable 03/14/17 14:30 Elliptocytes Not Reportable 03/14/17 14:30 Acanthocytes (Spur) Not Reportable 03/14/17 14:30 Rouleaux Not Reportable 03/14/17 14:30 Hemoglobin C Crystals Not Reportable 03/14/17 14:30 Schistocytes Not Reportable 03/14/17 14:30 Malaria parasites Not Reportable 03/14/17 14:30 ESR > 140.0 mm/Hr (0-20) 09/08/16 11:48 Jun Bodies Not Reportable 03/14/17 14:30 Hem Pathologist Commnt No 03/14/17 14:30 PT 15.4 Sec. (12.2-14.9) H 01/13/17 15:50 INR 1.16 (0.87-1.13) H 01/13/17 15:50 APTT 33.0 Sec. (24.2-36.6) 10/09/16 03:45 Thrombin Time 16.8 Sec. (15.1-19.6) 09/03/16 00:10 Fibrinogen 750 mg/dl (211-480) H 09/08/16 11:48 Lupus Anticoagulant see below 09/12/16 09:59 LA PTT Baseline See scanned report 09/12/16 09:59 dRVVT Confirm Interp Positive (Negative) H 09/12/16 09:59 dRVVT Screen 50:50 See scanned report 09/12/16 09:59 dRVVT Mix Interpret See scanned report 09/12/16 09:59 Protein C Antigen 122 % (70-140) 09/08/16 15:35 Free Protein S 97 % normal (50-147) 09/08/16 15:35 Total Protein S 109 % (70-140) 09/08/16 15:35 Antithrombin III Ag 100 % (80-120) 09/08/16 15:35 Heparin Anti-Xa, Unfract Negative (Negative) 09/29/16 13:35 Factor V Activity 182 % (65-150) H 09/08/16 15:35 POC ABG pH 7.518 (7.35-7.45) H 03/03/17 20:17 ABG pH 7.450 pH Units (7.350-7.450) 12/05/16 Unknown POC ABG pCO2 28.8 (35-45) L 03/03/17 20: ABG pCO2 29.6 mm Hg 12/05/16 Unknown POC ABG pO2 61 (80-105) L 03/03/17 20: ABG pO2 75.2 mm Hg (80.0-90.0) L 12/05/16 Unknown POC ABG HCO3 23.4 03/03/17 20: ABG HCO3 20.1 mmol/L (20.0-26.0) 12/05/16 Unknown POC ABG Total CO2 24 03/03/17 20: POC ABG O2 Sat 94 03/03/17 20: ABG O2 Saturation 96.8 % (95.0-99.0) 12/05/16 Unknown ABG O2 Content 9.9 (0.0-44) 12/05/16 Unknown POC ABG Base Excess 0 03/03/17: ABG Base Excess -3.4 mmol/L (-2.0-3.0) L 12/05/16 Unknown ABG Hemoglobin 7.4 gm/dl (12.0-16.0) L 12/05/16 Unknown ABG Carboxyhemoglobin 1.8 % (0.0-5.0) 12/05/16 Unknown ABG Methemoglobin 0.6 % (0.0-1.5) 12/05/16 Unknown Oxyhemoglobin 94.5 % (95.0-99.0) L 12/05/16 Unknown FiO2 40 % 03/03/17 20:17 Sodium 143 mmol/L (137-145) 04/04/17 07:20 Potassium 3.3 mmol/L (3.6-5.0) L 04/04/17 07:20 Chloride 103.1 mmol/L (98-107) 04/04/17 07:20 Carbon Dioxide 28 mmol/L (22-30) 04/04/17 07:20 Anion Gap 15 mmol/L 04/04/17 07:20 BUN 24 mg/dL (7-17) H 04/04/17 07:20 Creatinine 2.1 mg/dL (0.7-1.2) H 04/04/17 07:20 Estimated GFR 31 ml/min 04/04/17 07:20 BUN/Creatinine Ratio 11 % 04/04/17 07:20 Glucose 88 mg/dL (65-100) 04/04/17 07:20 POC Glucose 107 (70-105) H 04/04/17 05:24 Osmolality 351 Mosm/kg 09/16/16 11:47 Lactic Acid 2.30 mmol/L (0.7-2.0) H* 01/09/17 08:22 Calcium 9.1 mg/dL (8.4-10.2) 04/04/17 07:20 Ionized Calcium 6.0 mg/dL (4.8-5.6) H 02/15/17 19:08 Phosphorus 1.50 mg/dL (2.5-4.5) L D 04/04/17 07:20 Magnesium 1.60 mg/dL (1.7-2.3) L 04/04/17 07:20 Total Bilirubin 0.50 mg/dL (0.1-1.2) 04/04/17 07:20 Direct Bilirubin 0.2 mg/dL (0-0.2) 01/28/17 04:00 Indirect Bilirubin 0.3 mg/dL 01/28/17 04:00 AST 15 units/L (5-40) 04/04/17 07:20 ALT 7 units/L (7-56) 04/04/17 07:20 Alkaline Phosphatase 122 units/L (35-129) 04/04/17 07:20 Ammonia 27.0 umol/L (25-60) 09/07/16 08:37 Lactate Dehydrogenase 170 units/L (91-180) 01/13/17 15:50 Total Creatine Kinase 121 units/L (30-135) 09/29/16 20:12 CK-MB (CK-2) < 1.0 ng/mL (0.0-4.0) 09/29/16 20:12 CK-MB (CK-2) Rel Index 0.8 (0-4) 09/29/16 20:12 Troponin T 0.204 ng/mL (0.00-0.029) H* 09/29/16 20:12 C-Reactive Protein 19.50 mg/dL (0.00-1.30) H 03/14/17 12:51 Total Protein 7.3 g/dL (6.3-8.2) 04/04/17 07:20 Albumin 1.8 g/dL (3.9-5) L 04/04/17 07:20 Albumin/Globulin Ratio 0.3 % 04/04/17 07:20 Prealbumin 0.110 g/L (0.200-0.400) L 12/29/16 05:15 Triglycerides 94 mg/dL (2-149) 03/20/17 Unknown Cholesterol 31 mg/dL (50-199) L 09/29/16 20:12 LDL Cholesterol Direct 4 mg/dL (50-130) L 09/29/16 20:12 HDL Cholesterol 3 mg/dL (40-59) L 09/29/16 20:12 Cholesterol/HDL Ratio 10.33 % 09/29/16 20:12 Angiotensin Convert Enz See scanned report 09/08/16 11:48 Renin 0.99 ng/mL/h (0.25-5.82) 10/07/16 10:56 Aldosterone <1 ng/dL () 10/07/16 10:56 Aldosterone/Renin Dir see below 10/07/16 10:56 Serotonin Release Assay See scanned report 09/29/16 13:35 25-OH Vitamin D Total 13 ng/mL (30-100) L 02/15/17 19:08 25-Hydroxy Vitamin D2 . 02/15/17 19:08 25-Hydroxy Vitamin D3 . 02/15/17 19:08 TSH 1.010 mlU/mL (0.270-4.200) 09/07/16 08:37 HCG, Qual Negative (Negative) 09/03/16 00:10 PTH Intact 10.88 pg/mL (15-65) L 02/15/17 19:08 Total Cortisol 18.2 mcg/dL () 02/02/17 20:09 Urine Color Yellow (Yellow) 11/05/16 13:09 Urine Turbidity Clear (Clear) 11/05/16 13:09 Urine pH 9.0 (5.0-7.0) H 11/05/16 13:09 Ur Specific [place] 1.011 (1.003-1.030) 11/05/16 13:09 Urine Protein 100 mg/dl mg/dL (Negative) 11/05/16 13:09 Urine Glucose (UA) Neg mg/dL (Negative) 11/05/16 13:09 Urine Ketones Neg mg/dL (Negative) 11/05/16 13:09 Urine Blood Neg (Negative) 11/05/16 13:09 Urine Nitrite Neg (Negative) 11/05/16 13:09 Urine Bilirubin Neg (Negative) 11/05/16 13:09 Urine Urobilinogen < 2.0 mg/dL (<2.0) 11/05/16 13:09 Ur Leukocyte Esterase Neg (Negative) 11/05/16 13:09 Urine WBC (Auto) 4.0 /HPF (0.0-6.0) 11/05/16 13:09 Urine RBC (Auto) 1.0 /HPF (0.0-6.0) 11/05/16 13:09 U Epithel Cells (Auto) 1.0 /HPF (0-13.0) 10/07/16 18:30 Urine Bacteria (Auto) 4+ /HPF (Negative) 11/05/16 13:09 Urine WBC Clumps 2+ /HPF 09/07/16 02:47 Hyaline Casts 4 /LPF 09/07/16 02:47 Urine Mucus Few /HPF 10/07/16 18:30 Urine Yeast (Budding) 3+ /HPF 10/07/16 18:30 Urine Eosinophils None seen (None Seen) 09/07/16 16:00 Urine Total Volume 950 11/12/16 10:18 Urine Creatinine 19.7 mg/dL (0.1-20.0) 11/12/16 10:18 Height (in) 65.0 inches 11/12/16 10:18 Weight (lb) 181.0 lbs 11/12/16 10:18 Creatinine Clearance 5 11/12/16 10:18 Urine Sodium 36 mEq/L 09/16/16 19:19 Urine Total Protein 16 mg/dL (5-11.8) H 09/16/16 19:19 Fluid Type Pleural 01/13/17 12:10 Fluid Color Yellow 01/13/17 12:10 Fluid Appearance Hazy 01/13/17 12:10 Fluid WBC 182 /mm3 01/13/17 12:10 Fluid RBC 41 /mm3 01/13/17 12:10 Fluid Seg Neutrophils 85.0 % 01/13/17 12:10 Fluid Lymphocytes 8.0 % 01/13/17 12:10 Fluid Reactive Lymphs 0 % 01/13/17 12:10 Fluid Monocytes 6.0 % 01/13/17 12:10 Fluid Eosinophils 1.0 % 01/13/17 12:10 Fluid Basophils 0 % 01/13/17 12:10 Fluid Total Protein 3.0 (15.0-45.0) L 01/13/17 12:10 Fluid LDH 1322 01/13/17 12:10 Fluid Comment Diff performed 01/13/17 12:10 Vancomycin Trough 2.3 ug/mL (5.0-20.0) L 09/21/16 13:00 Random Vancomycin 26.0 ug/mL (0-40.0) 03/13/17 05:39 Urine Opiates Screen Presumptive negative 09/03/16 15:11 Urine Methadone Screen Presumptive positive 09/03/16 15:11 Ur Barbiturates Screen Presumptive positive 09/03/16 15:11 Ur Phencyclidine Scrn Presumptive negative 09/03/16 15:11 Ur Amphetamines Screen Presumptive negative 09/03/16 15:11 U Benzodiazepines Scrn Presumptive negative 09/03/16 15:11 Urine Cocaine Screen Presumptive negative 09/03/16 15:11 U Marijuana (THC) Screen Presumptive positive 09/03/16 15:11 Drugs of Abuse Note Disclamer 09/03/16 15:11 Rheumatoid Factor 24 IU/ml (0-13) H 09/08/16 11:48 SAHIL Screen Negative (Negative) 09/07/16 09:20 Proteinase 3 (PR3) Ab <1.0 AI (<1.0) 09/07/16 09:20 Myeloperoxidase Ab <1.0 AI (<1.0) 09/07/16 09:20 Sjogren's Antibody <1.0 AI (<1.0) 09/08/16 15:35 Scl-70 Scleroderma Ab <1.0 AI (<1.0) 09/08/16 15:35 Centromere B Antibody <1.0 AI (<1.0) 09/08/16 12:02 Heparin-induced Plt Ab Negative (Negative) 09/29/16 13:35 UF Heparin High Dose 11 % Release 09/29/16 13:35 SUDHIR UFH Low Dose 0.1 6 % Release 09/29/16 13:35 SUDHIR UFH Low Dose 0.5 8 % Release 09/29/16 13:35 Cardiolipid IgG Ab <14 GPL (<=14) 09/12/16 09:59 Cardiolipid IgA Ab <11 APL (<=11) 09/12/16 09:59 Cardiolipid IgM Ab <12 MPL (<=12) 09/12/16 09:59 Complement C3 148 mg/dL (90-180) 09/07/16 09:20 Complement C4 58 mg/dL (16-47) H 09/07/16 09:20 RPR Nonreactive (Nonreactive) 09/08/16 11:48 Hepatitis A IgM Ab Non-reactive (NonReactive) 09/24/16 14:40 Hep Bs Antigen Non-reactive (Negative) 09/24/16 14:40 Hep B Core IgM Ab Non-reactive (NonReactive) 09/24/16 14:40 Hepatitis C Antibody Non-reactive (NonReactive) 09/24/16 14:40 HIV 1&2 Antibody Rapid Non react (Non React) 09/08/16 11:48 HIV P24 Antigen Non react (Non React) 09/08/16 11:48 Miscellaneous Test Flexitest 1 H 01/09/17 18:45 Blood Type A POSITIVE 03/20/17 16:00 Antibody Screen Negative 03/20/17 16:00 DELORIS Antibody Screen Negative 11/24/16 11:20 Crossmatch See Detail 03/20/17 16:00
[2017-04-04] MEDS ORDERED: KPHOS 30 MMOL in NACL 0.9% 500 ML 500 ML IV ONE (12:00)
[2017-04-04] MEDS ORDERED: KCL 10MEQ/100ML 10 MEQ/100 ML BAG IV SCH (12:00)
[2017-04-04] MEDS ORDERED: MAGNESIUM SULFATE 2GM/50ML 2 GM/50 ML BAG IV ONE (12:00)
[2017-04-04] MEDS: DURAGESIC TD SCH (12:05)
[2017-04-04] MEDS ORDERED: NACL 0.9% 100 ML IV PRN (12:48)
--- NOTE | 2017-04-04 18:10 | Progress Note ---
Assessment and Plan Patient is 46-year-old woman with a history of hypertension, diabetes mellitus, asthma, hyperlipidemia, chronic kidney disease and anxiety, who was brought in by family because she couldn't get her words out, her face was also twisted, she was admitted for acute CVA and accelerated hypertension, she had a hx of poor adherence with her medications, and uncontrolled hypertension. Patient's SBP on admission was noted be greater than 260. TPA was started but this it was discontinued after 5 minutes because her blood pressure became uncontrolled. The TPA was not initiated again because the patient was outside the TPA window. Patient has had a prolonged hospital stay complicated with recurrent severe sepsis. Patient with most recent event also status post cardiac arrest on 11/21/16 , with CPR and ROSC. Acute on chronic Hypoxemic Respiratory Failure Sepsis -recurrent s/p tracheostomy Hypertension Atrial Fibrillation with RVR Acute encephalopathy s/p CVA Oropharyngeal dysphagia Enterococcal bacteremia Sacral Decubitus Ulcer- unstageable s/p debridement Anemia Obesity JUANITA now on hemodialysis Enteric Fistula - VAP bundle addressed - continue NGT to LIS - continue wound care/wound vac per WCT - Vasopressor if MAP falls < 65mmHg - keep on with daily PSV trials and / or T-piece as tolerated - continue TPN administration (continue TPN; NPO except for meds) - continue airway clearance and secretion management - continue to wean FiO2 for sats > 94% - continue to monitor hemodynamics closely - continue HD/UF per nephrology - continue to follow electrolytes and correct as necessary - continue GI & VTE prophylaxis Transfuse 1 unit PRBC as needed to keep HgH>7g/dL .....she remains critically ill on life sustaining interventions including MVS and at risk for further deterioration including ...alf prognosis remains poor ...DNR in the event of cardiac arrest - Patient Problems (1) Acute respiratory failure with hypoxia Current Visit: Yes Status: Acute (2) Acute blood loss anemia Current Visit: Yes Status: Resolved (3) Acute CVA (cerebrovascular accident) Current Visit: Yes Status: Acute (4) Chronic renal insufficiency Current Visit: Yes Status: Acute (5) Uncontrolled hypertension Current Visit: Yes Status: Acute (6) Leukocytosis (leucocytosis) Current Visit: Yes Status: Acute Qualifiers: Leukocytosis type: leukemoid reaction Qualified Code(s): D72.823 - Leukemoid reaction (7) Dislodged gastrostomy tube Current Visit: Yes Status: Acute (8) Fungemia Current Visit: Yes Status: Resolved (9) Cardiopulmonary arrest with successful resuscitation Current Visit: Yes Status: Acute Subjective Date of service: 04/04/17 Principal diagnosis: Acute resp failure on MVS; S/P Acute CVA; Acute Encephalopathy; JUANITA Interval history: Patient is seen today for: Acute resp failure on MVS; S/P Acute CVA; Acute Encephalopathy; JUANITA Seen and examined at bedside; 24hour events reviewed; nursing and respiratory care staff consulted; no adverse overnight events reported to me; she remains critically ill. Appears to be less responsive today with some posturing. No fevers Currently on norepinephrine to maintain MAP >65 Anemia Discussed with RT Discussed during interdisciplinary ICU team rounds Objective Vital Signs - 12hr 04/04/17 04/04/17 04/04/17 07:00 07:30 08:00 Temperature 98.6 F Pulse Rate 92 H 93 H Pulse Rate [ 82 Apical] Pulse Rate [ 82 From Monitor] Pulse Rate [ Throughout] Respiratory 29 H 25 H 29 H Rate Respiratory Rate [ Throughout] Blood Pressure 110/74 130/90 O2 Sat by Pulse 100 100 100 Oximetry 04/04/17 04/04/17 04/04/17 08:58 09:00 09:04 Temperature Pulse Rate 93 H 95 H Pulse Rate [ Apical] Pulse Rate [ From Monitor] Pulse Rate [ 97 H Throughout] Respiratory 14 Rate Respiratory 12 Rate [ Throughout] Blood Pressure 142/92 150/96 O2 Sat by Pulse 100 100 Oximetry 04/04/17 04/04/17 04/04/17 10:00 11:00 11:45 Temperature Pulse Rate 114 H 102 H Pulse Rate [ 100 H Apical] Pulse Rate [ 100 H From Monitor] Pulse Rate [ Throughout] Respiratory 16 25 H 21 Rate Respiratory Rate [ Throughout] Blood Pressure 162/102 136/91 O2 Sat by Pulse 100 100 100 Oximetry 04/04/17 04/04/17 04/04/17 11:52 12:00 13:00 Temperature 98.6 F Pulse Rate 100 H 92 H 90 Pulse Rate [ Apical] Pulse Rate [ From Monitor] Pulse Rate [ Throughout] Respiratory 23 21 Rate Respiratory Rate [ Throughout] Blood Pressure 136/89 140/91 126/88 O2 Sat by Pulse 100 100 Oximetry 04/04/17 04/04/17 04/04/17 13:54 14:00 15:00 Temperature Pulse Rate 92 H 94 H Pulse Rate [ Apical] Pulse Rate [ From Monitor] Pulse Rate [ 91 H Throughout] Respiratory 15 17 Rate Respiratory 18 Rate [ Throughout] Blood Pressure 135/91 142/88 O2 Sat by Pulse 100 100 Oximetry 04/04/17 04/04/17 04/04/17 15:40 16:00 17:00 Temperature 98.6 F Pulse Rate 95 H 95 H Pulse Rate [ 96 H Apical] Pulse Rate [ 96 H From Monitor] Pulse Rate [ Throughout] Respiratory 22 12 17 Rate Respiratory Rate [ Throughout] Blood Pressure 128/92 142/91 O2 Sat by Pulse 100 100 100 Oximetry 04/04/17 18:00 Temperature Pulse Rate 97 H Pulse Rate [ Apical] Pulse Rate [ From Monitor] Pulse Rate [ Throughout] Respiratory 15 Rate Respiratory Rate [ Throughout] Blood Pressure 139/96 O2 Sat by Pulse 100 Oximetry Constitutional: appears uncomfortable, other (not tracking) Eyes: non-icteric, other (tracheostomy tube in midline of neck) ENT: oropharynx moist, oropharyngeal exudate pre, other (midline tracheostomy tube) Neck: supple, no lymphadenopathy, no JVD, other (no thyromegaly) Effort: mildly labored Ascultation: Bilateral: clear, diminished breath sounds (bases R>L), rales, rhonchi (and referred upper airway sounds) Percussion: Right: dull (base), Bilateral: not dull Cardiovascular: regular rate and rhythm, other (no rubs / murmurs) Gastrointestinal: hypoactive bowel sounds, soft, non-tender, non-distended, other (RLQ & LUQ stomas with colostomy bags) Integumentary: decubitus ulcer (sacral; stage 4 s/p surgical debridement), other (no rash; no cellulitis; poor turgor) Extremities: no cyanosis, pulses normal, no ischemia or petechiae, edema (1+ bilaterally) Neurologic: pupils equal and round, unable to assess, other (encephalopathic) Psychiatric: other (unable to assess) CBC and BMP: 04/03/17 11:40 04/04/17 07:20 ABG, PT/INR, D-dimer: ABG POC ABG pH 7.518 (7.35-7.45) H 03/03/17 20:17 ABG pH 7.450 pH Units (7.350-7.450) 12/05/16 Unknown POC ABG pCO2 28.8 (35-45) L 03/03/17 20:17 ABG pCO2 29.6 mm Hg 12/05/16 Unknown POC ABG pO2 61 (80-105) L 03/03/17 20:17 ABG pO2 75.2 mm Hg (80.0-90.0) L 12/05/16 Unknown POC ABG HCO3 23.4 03/03/17 20:17 POC ABG Total CO2 24 03/03/17 20:17 POC ABG O2 Sat 94 03/03/17 20:17 ABG O2 Saturation 96.8 % (95.0-99.0) 12/05/16 Unknown PT/INR, D-dimer PT 15.4 Sec. (12.2-14.9) H 01/13/17 15:50 INR 1.16 (0.87-1.13) H 01/13/17 15:50 Abnormal lab findings: Abnormal Labs 09/03/16 09/03/16 09/03/16 00:03 00:10 00:10 WBC 13.9 H RBC 5.95 H Hgb Hct 44.0 H MCV 74 L MCH 22 L MCHC RDW 17.5 H Plt Count Lymph % (Auto) [place] % (Auto) Lymph # [place] # Baso # Seg Neutrophils % Seg Neuts % (Manual) Lymphocytes % (Manual) 54.0 H Monocytes % (Manual) Eosinophils % (Manual) Basophils % (Manual) Nucleated RBC % Seg Neutrophils # Seg Neutrophils # Man Lymphocytes # (Manual) 7.5 H Monocytes # (Manual) Eosinophils # (Manual) Basophils # (Manual) PT INR Fibrinogen dRVVT Confirm Interp Factor V Activity POC ABG pH POC ABG pCO2 POC ABG pO2 ABG pO2 ABG HCO3 ABG Base Excess ABG Hemoglobin Oxyhemoglobin Sodium Potassium 2.8 L* Chloride Carbon Dioxide 21 L BUN Creatinine 1.7 H Glucose 159 H POC Glucose 177 H Lactic Acid Calcium Ionized Calcium Phosphorus Magnesium Direct Bilirubin AST ALT Alkaline Phosphatase Lactate Dehydrogenase Troponin T C-Reactive Protein Total Protein Albumin Prealbumin Triglycerides Cholesterol LDL Cholesterol Direct HDL Cholesterol 25-OH Vitamin D Total PTH Intact Urine pH Urine WBC (Auto) Urine Creatinine Urine Total Protein Fluid Total Protein Vancomycin Trough Rheumatoid Factor Complement C4 Miscellaneous Test Crossmatch 09/03/16 09/03/16 09/03/16 12:12 15:07 16:20 WBC RBC Hgb Hct MCV MCH MCHC RDW Plt Count Lymph % (Auto) [place] % (Auto) Lymph # [place] # Baso # Seg Neutrophils % Seg Neuts % (Manual) Lymphocytes % (Manual) Monocytes % (Manual) Eosinophils % (Manual) Basophils % (Manual) Nucleated RBC % Seg Neutrophils # Seg Neutrophils # Man Lymphocytes # (Manual) Monocytes # (Manual) Eosinophils # (Manual) Basophils # (Manual) PT INR Fibrinogen dRVVT Confirm Interp Factor V Activity POC ABG pH 7.452 H POC ABG pCO2 POC ABG pO2 ABG pO2 ABG HCO3 ABG Base Excess ABG Hemoglobin Oxyhemoglobin Sodium Potassium Chloride Carbon Dioxide BUN Creatinine Glucose POC Glucose 178 H Lactic Acid Calcium Ionized Calcium Phosphorus 2.20 L Magnesium 1.60 L Direct Bilirubin AST ALT Alkaline Phosphatase Lactate Dehydrogenase Troponin T C-Reactive Protein Total Protein Albumin Prealbumin Triglycerides Cholesterol LDL Cholesterol Direct HDL Cholesterol 25-OH Vitamin D Total PTH Intact Urine pH Urine WBC (Auto) Urine Creatinine Urine Total Protein Fluid Total Protein Vancomycin Trough Rheumatoid Factor Complement C4 Miscellaneous Test Crossmatch 09/03/16 09/03/16 09/03/16 17:57 17:58 23:50 WBC RBC Hgb Hct MCV MCH MCHC RDW Plt Count Lymph % (Auto) [place] % (Auto) Lymph # [place] # Baso # Seg Neutrophils % Seg Neuts % (Manual) Lymphocytes % (Manual) Monocytes % (Manual) Eosinophils % (Manual) Basophils % (Manual) Nucleated RBC % Seg Neutrophils # Seg Neutrophils # Man Lymphocytes # (Manual) Monocytes # (Manual) Eosinophils # (Manual) Basophils # (Manual) PT INR Fibrinogen dRVVT Confirm Interp Factor V Activity POC ABG pH POC ABG pCO2 POC ABG pO2 ABG pO2 ABG HCO3 ABG Base Excess ABG Hemoglobin Oxyhemoglobin Sodium Potassium Chloride Carbon Dioxide BUN Creatinine Glucose POC Glucose 162 H 145 H Lactic Acid Calcium Ionized Calcium Phosphorus 2.30 L Magnesium Direct Bilirubin AST ALT Alkaline Phosphatase Lactate Dehydrogenase Troponin T C-Reactive Protein Total Protein Albumin Prealbumin Triglycerides Cholesterol LDL Cholesterol Direct HDL Cholesterol 25-OH Vitamin D Total PTH Intact Urine pH Urine WBC (Auto) Urine Creatinine Urine Total Protein Fluid Total Protein Vancomycin Trough Rheumatoid Factor Complement C4 Miscellaneous Test Crossmatch 09/04/16 09/04/16 09/04/16 03:31 03:31 05:42 WBC RBC Hgb 9.7 L D Hct MCV 72 L MCH 23 L MCHC RDW 17.5 H Plt Count Lymph % (Auto) 11.1 L [place] % (Auto) Lymph # [place] # Baso # Seg Neutrophils % 84.3 H Seg Neuts % (Manual) Lymphocytes % (Manual) Monocytes % (Manual) Eosinophils % (Manual) Basophils % (Manual) Nucleated RBC % Seg Neutrophils # 8.9 H Seg Neutrophils # Man Lymphocytes # (Manual) Monocytes # (Manual) Eosinophils # (Manual) Basophils # (Manual) PT INR Fibrinogen dRVVT Confirm Interp Factor V Activity POC ABG pH POC ABG pCO2 POC ABG pO2 ABG pO2 ABG HCO3 ABG Base Excess ABG Hemoglobin Oxyhemoglobin Sodium 135 L Potassium 2.9 L* Chloride 97.2 L Carbon Dioxide 19 L BUN Creatinine 1.7 H Glucose 170 H POC Glucose 152 H Lactic Acid Calcium Ionized Calcium Phosphorus Magnesium Direct Bilirubin AST ALT Alkaline Phosphatase Lactate Dehydrogenase Troponin T C-Reactive Protein Total Protein Albumin Prealbumin Triglycerides 160 H Cholesterol LDL Cholesterol Direct HDL Cholesterol 31 L 25-OH Vitamin D Total PTH Intact Urine pH Urine WBC (Auto) Urine Creatinine Urine Total Protein Fluid Total Protein Vancomycin Trough Rheumatoid Factor Complement C4 Miscellaneous Test Crossmatch 09/04/16 09/04/16 09/04/16 11:34 17:46 23:29 WBC RBC Hgb Hct MCV MCH MCHC RDW Plt Count Lymph % (Auto) [place] % (Auto) Lymph # [place] # Baso # Seg Neutrophils % Seg Neuts % (Manual) Lymphocytes % (Manual) Monocytes % (Manual) Eosinophils % (Manual) Basophils % (Manual) Nucleated RBC % Seg Neutrophils # Seg Neutrophils # Man Lymphocytes # (Manual) Monocytes # (Manual) Eosinophils # (Manual) Basophils # (Manual) PT INR Fibrinogen dRVVT Confirm Interp Factor V Activity POC ABG pH POC ABG pCO2 POC ABG pO2 ABG pO2 ABG HCO3 ABG Base Excess ABG Hemoglobin Oxyhemoglobin Sodium Potassium Chloride Carbon Dioxide BUN Creatinine Glucose POC Glucose 165 H 210 H 139 H Lactic Acid Calcium Ionized Calcium Phosphorus Magnesium Direct Bilirubin AST ALT Alkaline Phosphatase Lactate Dehydrogenase Troponin T C-Reactive Protein Total Protein Albumin Prealbumin Triglycerides Cholesterol LDL Cholesterol Direct HDL Cholesterol 25-OH Vitamin D Total PTH Intact Urine pH Urine WBC (Auto) Urine Creatinine Urine Total Protein Fluid Total Protein Vancomycin Trough Rheumatoid Factor Complement C4 Miscellaneous Test Crossmatch 09/05/16 09/05/16 09/05/16 04:05 04:05 05:38 WBC RBC Hgb Hct MCV 76 L D MCH 23 L MCHC RDW 17.8 H Plt Count Lymph % (Auto) [place] % (Auto) Lymph # [place] # Baso # Seg Neutrophils % Seg Neuts % (Manual) Lymphocytes % (Manual) Monocytes % (Manual) Eosinophils % (Manual) Basophils % (Manual) Nucleated RBC % Seg Neutrophils # Seg Neutrophils # Man Lymphocytes # (Manual) Monocytes # (Manual) Eosinophils # (Manual) Basophils # (Manual) PT INR Fibrinogen dRVVT Confirm Interp Factor V Activity POC ABG pH POC ABG pCO2 POC ABG pO2 ABG pO2 ABG HCO3 ABG Base Excess ABG Hemoglobin Oxyhemoglobin Sodium 134 L Potassium Chloride Carbon Dioxide 18 L BUN Creatinine 1.8 H Glucose 192 H POC Glucose 175 H Lactic Acid Calcium Ionized Calcium Phosphorus Magnesium Direct Bilirubin AST ALT Alkaline Phosphatase Lactate Dehydrogenase Troponin T C-Reactive Protein Total Protein Albumin Prealbumin Triglycerides Cholesterol LDL Cholesterol Direct HDL Cholesterol 25-OH Vitamin D Total PTH Intact Urine pH Urine WBC (Auto) Urine Creatinine Urine Total Protein Fluid Total Protein Vancomycin Trough Rheumatoid Factor Complement C4 Miscellaneous Test Crossmatch 09/05/16 09/05/16 09/05/16 11:38 17:48 23:22 WBC RBC Hgb Hct MCV MCH MCHC RDW Plt Count Lymph % (Auto) [place] % (Auto) Lymph # [place] # Baso # Seg Neutrophils % Seg Neuts % (Manual) Lymphocytes % (Manual) Monocytes % (Manual) Eosinophils % (Manual) Basophils % (Manual) Nucleated RBC % Seg Neutrophils # Seg Neutrophils # Man Lymphocytes # (Manual) Monocytes # (Manual) Eosinophils # (Manual) Basophils # (Manual) PT INR Fibrinogen dRVVT Confirm Interp Factor V Activity POC ABG pH POC ABG pCO2 POC ABG pO2 ABG pO2 ABG HCO3 ABG Base Excess ABG Hemoglobin Oxyhemoglobin Sodium Potassium Chloride Carbon Dioxide BUN Creatinine Glucose POC Glucose 164 H 186 H 195 H Lactic Acid Calcium Ionized Calcium Phosphorus Magnesium Direct Bilirubin AST ALT Alkaline Phosphatase Lactate Dehydrogenase Troponin T C-Reactive Protein Total Protein Albumin Prealbumin Triglycerides Cholesterol LDL Cholesterol Direct HDL Cholesterol 25-OH Vitamin D Total PTH Intact Urine pH Urine WBC (Auto) Urine Creatinine Urine Total Protein Fluid Total Protein Vancomycin Trough Rheumatoid Factor Complement C4 Miscellaneous Test Crossmatch 09/06/16 09/06/16 09/06/16 04:12 05:59 07:32 WBC RBC Hgb Hct MCV MCH MCHC RDW Plt Count Lymph % (Auto) [place] % (Auto) Lymph # [place] # Baso # Seg Neutrophils % Seg Neuts % (Manual) Lymphocytes % (Manual) Monocytes % (Manual) Eosinophils % (Manual) Basophils % (Manual) Nucleated RBC % Seg Neutrophils # Seg Neutrophils # Man Lymphocytes # (Manual) Monocytes # (Manual) Eosinophils # (Manual) Basophils # (Manual) PT INR Fibrinogen dRVVT Confirm Interp Factor V Activity POC ABG pH 7.514 H POC ABG pCO2 29.1 L POC ABG pO2 72 L ABG pO2 ABG HCO3 ABG Base Excess ABG Hemoglobin Oxyhemoglobin Sodium 133 L Potassium 3.4 L Chloride 94.9 L Carbon Dioxide 19 L BUN 30 H Creatinine 2.1 H Glucose 139 H POC Glucose 146 H Lactic Acid Calcium Ionized Calcium Phosphorus Magnesium Direct Bilirubin AST ALT Alkaline Phosphatase Lactate Dehydrogenase Troponin T C-Reactive Protein Total Protein Albumin Prealbumin Triglycerides Cholesterol LDL Cholesterol Direct HDL Cholesterol 25-OH Vitamin D Total PTH Intact Urine pH Urine WBC (Auto) Urine Creatinine Urine Total Protein Fluid Total Protein Vancomycin Trough Rheumatoid Factor Complement C4 Miscellaneous Test Crossmatch 09/06/16 09/06/16 09/06/16 11:57 17:58 19:02 WBC RBC Hgb Hct MCV MCH MCHC RDW Plt Count Lymph % (Auto) [place] % (Auto) Lymph # [place] # [place] # Seg Neutrophils % Seg Neuts % (Manual) Lymphocytes % (Manual) Monocytes % (Manual) Eosinophils % (Manual) Basophils % (Manual) Nucleated RBC % Seg Neutrophils # Seg Neutrophils # Man Lymphocytes # (Manual) Monocytes # (Manual) Eosinophils # (Manual) Basophils # (Manual) PT INR Fibrinogen dRVVT Confirm Interp Factor V Activity POC ABG pH 7.465 H POC ABG pCO2 32.0 L POC ABG pO2 ABG pO2 ABG HCO3 ABG Base Excess ABG Hemoglobin Oxyhemoglobin Sodium Potassium Chloride Carbon Dioxide BUN Creatinine Glucose POC Glucose 165 H 160 H Lactic Acid Calcium Ionized Calcium Phosphorus Magnesium Direct Bilirubin AST ALT Alkaline Phosphatase Lactate Dehydrogenase Troponin T C-Reactive Protein Total Protein Albumin Prealbumin Triglycerides Cholesterol LDL Cholesterol Direct HDL Cholesterol 25-OH Vitamin D Total PTH Intact Urine pH Urine WBC (Auto) Urine Creatinine Urine Total Protein Fluid Total Protein Vancomycin Trough Rheumatoid Factor Complement C4 Miscellaneous Test Crossmatch 09/06/16 09/07/16 09/07/16 23:45 02:47 02:47 WBC RBC Hgb Hct MCV MCH MCHC RDW Plt Count Lymph % (Auto) [place] % (Auto) Lymph # [place] # Baso # Seg Neutrophils % Seg Neuts % (Manual) Lymphocytes % (Manual) Monocytes % (Manual) Eosinophils % (Manual) Basophils % (Manual) Nucleated RBC % Seg Neutrophils # Seg Neutrophils # Man Lymphocytes # (Manual) Monocytes # (Manual) Eosinophils # (Manual) Basophils # (Manual) PT INR Fibrinogen dRVVT Confirm Interp Factor V Activity POC ABG pH POC ABG pCO2 POC ABG pO2 ABG pO2 ABG HCO3 ABG Base Excess ABG Hemoglobin Oxyhemoglobin Sodium Potassium Chloride Carbon Dioxide BUN Creatinine Glucose POC Glucose 204 H Lactic Acid Calcium Ionized Calcium Phosphorus Magnesium Direct Bilirubin AST ALT Alkaline Phosphatase Lactate Dehydrogenase Troponin T C-Reactive Protein Total Protein Albumin Prealbumin Triglycerides Cholesterol LDL Cholesterol Direct HDL Cholesterol 25-OH Vitamin D Total PTH Intact Urine pH Urine WBC (Auto) 68.0 H Urine Creatinine 106.1 H Urine Total Protein Fluid Total Protein Vancomycin Trough Rheumatoid Factor Complement C4 Miscellaneous Test Crossmatch 09/07/16 09/07/16 09/07/16 04:50 06:19 06:39 WBC RBC Hgb Hct MCV MCH MCHC RDW Plt Count Lymph % (Auto) [place] % (Auto) Lymph # [place] # Baso # Seg Neutrophils % Seg Neuts % (Manual) Lymphocytes % (Manual) Monocytes % (Manual) Eosinophils % (Manual) Basophils % (Manual) Nucleated RBC % Seg Neutrophils # Seg Neutrophils # Man Lymphocytes # (Manual) Monocytes # (Manual) Eosinophils # (Manual) Basophils # (Manual) PT INR Fibrinogen dRVVT Confirm Interp Factor V Activity POC ABG pH 7.457 H POC ABG pCO2 32.1 L POC ABG pO2 76 L ABG pO2 ABG HCO3 ABG Base Excess ABG Hemoglobin Oxyhemoglobin Sodium 132 L Potassium Chloride 94.7 L Carbon Dioxide BUN 53 H Creatinine 2.9 H Glucose 151 H POC Glucose 149 H Lactic Acid Calcium Ionized Calcium Phosphorus Magnesium Direct Bilirubin AST ALT Alkaline Phosphatase Lactate Dehydrogenase Troponin T C-Reactive Protein Total Protein Albumin Prealbumin Triglycerides Cholesterol LDL Cholesterol Direct HDL Cholesterol 25-OH Vitamin D Total PTH Intact Urine pH Urine WBC (Auto) Urine Creatinine Urine Total Protein Fluid Total Protein Vancomycin Trough Rheumatoid Factor Complement C4 Miscellaneous Test Crossmatch 09/07/16 09/07/16 09/07/16 09:20 11:43 11:43 WBC 19.4 H RBC Hgb 8.3 L Hct 26.4 L D MCV 72 L D MCH 22 L MCHC RDW 17.9 H Plt Count Lymph % (Auto) 8.5 L [place] % (Auto) Lymph # [place] # 1.0 H Baso # Seg Neutrophils % 85.8 H Seg Neuts % (Manual) Lymphocytes % (Manual) Monocytes % (Manual) Eosinophils % (Manual) Basophils % (Manual) Nucleated RBC % Seg Neutrophils # 16.6 H Seg Neutrophils # Man Lymphocytes # (Manual) Monocytes # (Manual) Eosinophils # (Manual) Basophils # (Manual) PT INR Fibrinogen dRVVT Confirm Interp Factor V Activity POC ABG pH POC ABG pCO2 POC ABG pO2 ABG pO2 ABG HCO3 ABG Base Excess ABG Hemoglobin Oxyhemoglobin Sodium 134 L Potassium Chloride 97.2 L Carbon Dioxide 20 L BUN 58 H Creatinine 2.9 H Glucose 147 H POC Glucose Lactic Acid Calcium Ionized Calcium Phosphorus 2.40 L Magnesium 2.40 H Direct Bilirubin AST ALT Alkaline Phosphatase Lactate Dehydrogenase Troponin T C-Reactive Protein Total Protein 5.8 L Albumin 2.2 L Prealbumin Triglycerides Cholesterol LDL Cholesterol Direct HDL Cholesterol 25-OH Vitamin D Total PTH Intact Urine pH Urine WBC (Auto) Urine Creatinine Urine Total Protein Fluid Total Protein Vancomycin Trough Rheumatoid Factor Complement C4 58 H Miscellaneous Test Crossmatch 09/07/16 09/07/16 09/07/16 11:50 16:00 17:31 WBC RBC Hgb Hct MCV MCH MCHC RDW Plt Count Lymph % (Auto) [place] % (Auto) Lymph # [place] # Baso # Seg Neutrophils % Seg Neuts % (Manual) Lymphocytes % (Manual) Monocytes % (Manual) Eosinophils % (Manual) Basophils % (Manual) Nucleated RBC % Seg Neutrophils # Seg Neutrophils # Man Lymphocytes # (Manual) Monocytes # (Manual) Eosinophils # (Manual) Basophils # (Manual) PT INR Fibrinogen dRVVT Confirm Interp Factor V Activity POC ABG pH POC ABG pCO2 POC ABG pO2 158 H ABG pO2 ABG HCO3 ABG Base Excess ABG Hemoglobin Oxyhemoglobin Sodium Potassium Chloride Carbon Dioxide BUN Creatinine Glucose POC Glucose 175 H Lactic Acid Calcium Ionized Calcium Phosphorus Magnesium Direct Bilirubin AST ALT Alkaline Phosphatase Lactate Dehydrogenase Troponin T C-Reactive Protein Total Protein Albumin Prealbumin Triglycerides Cholesterol LDL Cholesterol Direct HDL Cholesterol 25-OH Vitamin D Total PTH Intact Urine pH Urine WBC (Auto) Urine Creatinine 66.3 H Urine Total Protein Fluid Total Protein Vancomycin Trough Rheumatoid Factor Complement C4 Miscellaneous Test Crossmatch 09/07/16 09/08/16 09/08/16 23:50 05:46 06:18 WBC 17.8 H RBC 3.58 L Hgb 8.1 L Hct 25.5 L MCV 71 L MCH 23 L MCHC RDW 18.4 H Plt Count Lymph % (Auto) [place] % (Auto) Lymph # [place] # Baso # Seg Neutrophils % Seg Neuts % (Manual) 92.0 H Lymphocytes % (Manual) 6.0 L Monocytes % (Manual) Eosinophils % (Manual) Basophils % (Manual) Nucleated RBC % Seg Neutrophils # Seg Neutrophils # Man 16.4 H Lymphocytes # (Manual) 1.1 L Monocytes # (Manual) Eosinophils # (Manual) Basophils # (Manual) PT INR Fibrinogen dRVVT Confirm Interp Factor V Activity POC ABG pH POC ABG pCO2 34.3 L POC ABG pO2 71 L ABG pO2 ABG HCO3 ABG Base Excess ABG Hemoglobin Oxyhemoglobin Sodium Potassium Chloride Carbon Dioxide BUN Creatinine Glucose POC Glucose 216 H Lactic Acid Calcium Ionized Calcium Phosphorus Magnesium Direct Bilirubin AST ALT Alkaline Phosphatase Lactate Dehydrogenase Troponin T C-Reactive Protein Total Protein Albumin Prealbumin Triglycerides Cholesterol LDL Cholesterol Direct HDL Cholesterol 25-OH Vitamin D Total PTH Intact Urine pH Urine WBC (Auto) Urine Creatinine Urine Total Protein Fluid Total Protein Vancomycin Trough Rheumatoid Factor Complement C4 Miscellaneous Test Crossmatch 09/08/16 09/08/16 09/08/16 06:18 06:51 10:55 WBC RBC Hgb Hct MCV MCH MCHC RDW Plt Count Lymph % (Auto) [place] % (Auto) Lymph # [place] # Baso # Seg Neutrophils % Seg Neuts % (Manual) Lymphocytes % (Manual) Monocytes % (Manual) Eosinophils % (Manual) Basophils % (Manual) Nucleated RBC % Seg Neutrophils # Seg Neutrophils # Man Lymphocytes # (Manual) Monocytes # (Manual) Eosinophils # (Manual) Basophils # (Manual) PT INR Fibrinogen dRVVT Confirm Interp Factor V Activity POC ABG pH POC ABG pCO2 POC ABG pO2 ABG pO2 ABG HCO3 ABG Base Excess ABG Hemoglobin Oxyhemoglobin Sodium 133 L Potassium Chloride 96.9 L Carbon Dioxide 20 L BUN 63 H Creatinine 2.7 H Glucose 195 H POC Glucose 204 H 169 H Lactic Acid Calcium Ionized Calcium Phosphorus Magnesium Direct Bilirubin AST ALT Alkaline Phosphatase Lactate Dehydrogenase Troponin T C-Reactive Protein Total Protein Albumin Prealbumin Triglycerides Cholesterol LDL Cholesterol Direct HDL Cholesterol 25-OH Vitamin D Total PTH Intact Urine pH Urine WBC (Auto) Urine Creatinine Urine Total Protein Fluid Total Protein Vancomycin Trough Rheumatoid Factor Complement C4 Miscellaneous Test Crossmatch 09/08/16 09/08/16 09/08/16 11:48 11:48 11:48 WBC RBC Hgb Hct MCV MCH MCHC RDW Plt Count Lymph % (Auto) [place] % (Auto) Lymph # [place] # Baso # Seg Neutrophils % Seg Neuts % (Manual) Lymphocytes % (Manual) Monocytes % (Manual) Eosinophils % (Manual) Basophils % (Manual) Nucleated RBC % Seg Neutrophils # Seg Neutrophils # Man Lymphocytes # (Manual) Monocytes # (Manual) Eosinophils # (Manual) Basophils # (Manual) PT INR Fibrinogen 750 H dRVVT Confirm Interp Factor V Activity POC ABG pH POC ABG pCO2 POC ABG pO2 ABG pO2 ABG HCO3 ABG Base Excess ABG Hemoglobin Oxyhemoglobin Sodium Potassium Chloride Carbon Dioxide BUN Creatinine Glucose POC Glucose Lactic Acid Calcium Ionized Calcium Phosphorus Magnesium Direct Bilirubin AST ALT Alkaline Phosphatase Lactate Dehydrogenase Troponin T C-Reactive Protein 15.70 H Total Protein Albumin Prealbumin Triglycerides Cholesterol LDL Cholesterol Direct HDL Cholesterol 25-OH Vitamin D Total PTH Intact Urine pH Urine WBC (Auto) Urine Creatinine Urine Total Protein Fluid Total Protein Vancomycin Trough Rheumatoid Factor 24 H Complement C4 Miscellaneous Test Crossmatch 09/08/16 09/08/16 09/09/16 15:35 18:25 00:24 WBC RBC Hgb Hct MCV MCH MCHC RDW Plt Count Lymph % (Auto) [place] % (Auto) Lymph # [place] # Baso # Seg Neutrophils % Seg Neuts % (Manual) Lymphocytes % (Manual) Monocytes % (Manual) Eosinophils % (Manual) Basophils % (Manual) Nucleated RBC % Seg Neutrophils # Seg Neutrophils # Man Lymphocytes # (Manual) Monocytes # (Manual) Eosinophils # (Manual) Basophils # (Manual) PT INR Fibrinogen dRVVT Confirm Interp Factor V Activity 182 H POC ABG pH POC ABG pCO2 POC ABG pO2 ABG pO2 ABG HCO3 ABG Base Excess ABG Hemoglobin Oxyhemoglobin Sodium Potassium Chloride Carbon Dioxide BUN Creatinine Glucose POC Glucose 184 H 216 H Lactic Acid Calcium Ionized Calcium Phosphorus Magnesium Direct Bilirubin AST ALT Alkaline Phosphatase Lactate Dehydrogenase Troponin T C-Reactive Protein Total Protein Albumin Prealbumin Triglycerides Cholesterol LDL Cholesterol Direct HDL Cholesterol 25-OH Vitamin D Total PTH Intact Urine pH Urine WBC (Auto) Urine Creatinine Urine Total Protein Fluid Total Protein Vancomycin Trough Rheumatoid Factor Complement C4 Miscellaneous Test Crossmatch 09/09/16 09/09/16 09/09/16 03:00 03:00 04:04 WBC 27.9 H RBC Hgb 8.7 L Hct 28.1 L MCV 72 L MCH 22 L MCHC RDW 18.4 H Plt Count 485 H Lymph % (Auto) [place] % (Auto) Lymph # [place] # Baso # Seg Neutrophils % Seg Neuts % (Manual) 77.0 H Lymphocytes % (Manual) 9.0 L Monocytes % (Manual) Eosinophils % (Manual) Basophils % (Manual) Nucleated RBC % Seg Neutrophils # Seg Neutrophils # Man 21.5 H Lymphocytes # (Manual) Monocytes # (Manual) 2.0 H Eosinophils # (Manual) Basophils # (Manual) PT INR Fibrinogen dRVVT Confirm Interp Factor V Activity POC ABG pH POC ABG pCO2 POC ABG pO2 121 H ABG pO2 ABG HCO3 ABG Base Excess ABG Hemoglobin Oxyhemoglobin Sodium 135 L Potassium Chloride 96.3 L Carbon Dioxide 21 L BUN 83 H Creatinine 3.0 H Glucose 135 H POC Glucose Lactic Acid Calcium Ionized Calcium Phosphorus Magnesium Direct Bilirubin AST ALT Alkaline Phosphatase Lactate Dehydrogenase Troponin T C-Reactive Protein Total Protein Albumin Prealbumin Triglycerides Cholesterol LDL Cholesterol Direct HDL Cholesterol 25-OH Vitamin D Total PTH Intact Urine pH Urine WBC (Auto) Urine Creatinine Urine Total Protein Fluid Total Protein Vancomycin Trough Rheumatoid Factor Complement C4 Miscellaneous Test Crossmatch 09/09/16 09/09/16 09/09/16 05:41 11:55 14:13 WBC RBC Hgb Hct MCV MCH MCHC RDW Plt Count Lymph % (Auto) [place] % (Auto) Lymph # [place] # Baso # Seg Neutrophils % Seg Neuts % (Manual) Lymphocytes % (Manual) Monocytes % (Manual) Eosinophils % (Manual) Basophils % (Manual) Nucleated RBC % Seg Neutrophils # Seg Neutrophils # Man Lymphocytes # (Manual) Monocytes # (Manual) Eosinophils # (Manual) Basophils # (Manual) PT INR Fibrinogen dRVVT Confirm Interp Factor V Activity POC ABG pH POC ABG pCO2 POC ABG pO2 ABG pO2 ABG HCO3 ABG Base Excess ABG Hemoglobin Oxyhemoglobin Sodium Potassium Chloride Carbon Dioxide BUN Creatinine Glucose POC Glucose 155 H 186 H Lactic Acid Calcium Ionized Calcium Phosphorus Magnesium Direct Bilirubin AST ALT Alkaline Phosphatase Lactate Dehydrogenase Troponin T C-Reactive Protein Total Protein Albumin Prealbumin Triglycerides Cholesterol LDL Cholesterol Direct HDL Cholesterol 25-OH Vitamin D Total PTH Intact Urine pH Urine WBC (Auto) 25.0 H Urine Creatinine Urine Total Protein Fluid Total Protein Vancomycin Trough Rheumatoid Factor Complement C4 Miscellaneous Test Crossmatch 09/09/16 09/09/16 09/10/16 17:33 23:13 05:09 WBC RBC Hgb Hct MCV MCH MCHC RDW Plt Count Lymph % (Auto) [place] % (Auto) Lymph # [place] # Baso # Seg Neutrophils % Seg Neuts % (Manual) Lymphocytes % (Manual) Monocytes % (Manual) Eosinophils % (Manual) Basophils % (Manual) Nucleated RBC % Seg Neutrophils # Seg Neutrophils # Man Lymphocytes # (Manual) Monocytes # (Manual) Eosinophils # (Manual) Basophils # (Manual) PT INR Fibrinogen dRVVT Confirm Interp Factor V Activity POC ABG pH POC ABG pCO2 POC ABG pO2 74 L ABG pO2 ABG HCO3 ABG Base Excess ABG Hemoglobin Oxyhemoglobin Sodium Potassium Chloride Carbon Dioxide BUN Creatinine Glucose POC Glucose 211 H 215 H Lactic Acid Calcium Ionized Calcium Phosphorus Magnesium Direct Bilirubin AST ALT Alkaline Phosphatase Lactate Dehydrogenase Troponin T C-Reactive Protein Total Protein Albumin Prealbumin Triglycerides Cholesterol LDL Cholesterol Direct HDL Cholesterol 25-OH Vitamin D Total PTH Intact Urine pH Urine WBC (Auto) Urine Creatinine Urine Total Protein Fluid Total Protein Vancomycin Trough Rheumatoid Factor Complement C4 Miscellaneous Test Crossmatch 09/10/16 09/10/16 09/10/16 05:17 05:17 11:31 WBC 15.8 H RBC 3.25 L Hgb 7.3 L Hct 22.9 L MCV 71 L MCH 23 L MCHC RDW 18.4 H Plt Count Lymph % (Auto) [place] % (Auto) Lymph # [place] # Baso # Seg Neutrophils % Seg Neuts % (Manual) 91.0 H Lymphocytes % (Manual) 4.0 L Monocytes % (Manual) Eosinophils % (Manual) Basophils % (Manual) Nucleated RBC % Seg Neutrophils # Seg Neutrophils # Man 14.4 H Lymphocytes # (Manual) 0.6 L Monocytes # (Manual) Eosinophils # (Manual) Basophils # (Manual) PT INR Fibrinogen dRVVT Confirm Interp Factor V Activity POC ABG pH POC ABG pCO2 POC ABG pO2 ABG pO2 ABG HCO3 ABG Base Excess ABG Hemoglobin Oxyhemoglobin Sodium Potassium Chloride Carbon Dioxide 21 L BUN 93 H Creatinine 2.9 H Glucose 146 H POC Glucose 188 H Lactic Acid Calcium 8.1 L Ionized Calcium Phosphorus Magnesium Direct Bilirubin AST ALT Alkaline Phosphatase Lactate Dehydrogenase Troponin T C-Reactive Protein Total Protein Albumin Prealbumin Triglycerides Cholesterol LDL Cholesterol Direct HDL Cholesterol 25-OH Vitamin D Total PTH Intact Urine pH Urine WBC (Auto) Urine Creatinine Urine Total Protein Fluid Total Protein Vancomycin Trough Rheumatoid Factor Complement C4 Miscellaneous Test Crossmatch 09/10/16 09/10/16 09/10/16 13:17 17:20 23:32 WBC RBC Hgb Hct MCV MCH MCHC RDW Plt Count Lymph % (Auto) [place] % (Auto) Lymph # [place] # Baso # Seg Neutrophils % Seg Neuts % (Manual) Lymphocytes % (Manual) Monocytes % (Manual) Eosinophils % (Manual) Basophils % (Manual) Nucleated RBC % Seg Neutrophils # Seg Neutrophils # Man Lymphocytes # (Manual) Monocytes # (Manual) Eosinophils # (Manual) Basophils # (Manual) PT INR Fibrinogen dRVVT Confirm Interp Factor V Activity POC ABG pH POC ABG pCO2 POC ABG pO2 ABG pO2 ABG HCO3 ABG Base Excess ABG Hemoglobin Oxyhemoglobin Sodium Potassium Chloride Carbon Dioxide BUN Creatinine Glucose POC Glucose 199 H 186 H Lactic Acid Calcium Ionized Calcium Phosphorus Magnesium Direct Bilirubin AST ALT Alkaline Phosphatase Lactate Dehydrogenase Troponin T C-Reactive Protein Total Protein Albumin Prealbumin Triglycerides Cholesterol LDL Cholesterol Direct HDL Cholesterol 25-OH Vitamin D Total PTH Intact Urine pH Urine WBC (Auto) Urine Creatinine Urine Total Protein Fluid Total Protein Vancomycin Trough Rheumatoid Factor Complement C4 Miscellaneous Test Crossmatch See Detail 09/11/16 09/11/16 09/11/16 05:10 05:10 05:17 WBC 28.4 H RBC Hgb 9.2 L Hct 29.3 L D MCV 73 L MCH 23 L MCHC RDW 18.9 H Plt Count 452 H Lymph % (Auto) [place] % (Auto) Lymph # [place] # Baso # Seg Neutrophils % Seg Neuts % (Manual) 89.5 H Lymphocytes % (Manual) 2.0 L Monocytes % (Manual) Eosinophils % (Manual) Basophils % (Manual) Nucleated RBC % Seg Neutrophils # Seg Neutrophils # Man 25.4 H Lymphocytes # (Manual) 0.6 L Monocytes # (Manual) 1.3 H Eosinophils # (Manual) Basophils # (Manual) PT INR Fibrinogen dRVVT Confirm Interp Factor V Activity POC ABG pH POC ABG pCO2 POC ABG pO2 ABG pO2 ABG HCO3 ABG Base Excess ABG Hemoglobin Oxyhemoglobin Sodium 136 L Potassium Chloride Carbon Dioxide 18 L BUN 107 H Creatinine 2.6 H Glucose 187 H POC Glucose 230 H Lactic Acid Calcium 8.3 L Ionized Calcium Phosphorus Magnesium Direct Bilirubin AST ALT Alkaline Phosphatase Lactate Dehydrogenase Troponin T C-Reactive Protein Total Protein Albumin Prealbumin Triglycerides Cholesterol LDL Cholesterol Direct HDL Cholesterol 25-OH Vitamin D Total PTH Intact Urine pH Urine WBC (Auto) Urine Creatinine Urine Total Protein Fluid Total Protein Vancomycin Trough Rheumatoid Factor Complement C4 Miscellaneous Test Crossmatch 09/11/16 09/11/16 09/11/16 05:55 12:02 17:32 WBC RBC Hgb Hct MCV MCH MCHC RDW Plt Count Lymph % (Auto) [place] % (Auto) Lymph # [place] # Baso # Seg Neutrophils % Seg Neuts % (Manual) Lymphocytes % (Manual) Monocytes % (Manual) Eosinophils % (Manual) Basophils % (Manual) Nucleated RBC % Seg Neutrophils # Seg Neutrophils # Man Lymphocytes # (Manual) Monocytes # (Manual) Eosinophils # (Manual) Basophils # (Manual) PT INR Fibrinogen dRVVT Confirm Interp Factor V Activity POC ABG pH POC ABG pCO2 33.8 L POC ABG pO2 ABG pO2 ABG HCO3 ABG Base Excess ABG Hemoglobin Oxyhemoglobin Sodium Potassium Chloride Carbon Dioxide BUN Creatinine Glucose POC Glucose 191 H 239 H Lactic Acid Calcium Ionized Calcium Phosphorus Magnesium Direct Bilirubin AST ALT Alkaline Phosphatase Lactate Dehydrogenase Troponin T C-Reactive Protein Total Protein Albumin Prealbumin Triglycerides Cholesterol LDL Cholesterol Direct HDL Cholesterol 25-OH Vitamin D Total PTH Intact Urine pH Urine WBC (Auto) Urine Creatinine Urine Total Protein Fluid Total Protein Vancomycin Trough Rheumatoid Factor Complement C4 Miscellaneous Test Crossmatch 09/11/16 09/12/16 09/12/16 23:52 05:09 05:32 WBC RBC Hgb Hct MCV MCH MCHC RDW Plt Count Lymph % (Auto) [place] % (Auto) Lymph # [place] # Baso # Seg Neutrophils % Seg Neuts % (Manual) Lymphocytes % (Manual) Monocytes % (Manual) Eosinophils % (Manual) Basophils % (Manual) Nucleated RBC % Seg Neutrophils # Seg Neutrophils # Man Lymphocytes # (Manual) Monocytes # (Manual) Eosinophils # (Manual) Basophils # (Manual) PT INR Fibrinogen dRVVT Confirm Interp Factor V Activity POC ABG pH POC ABG pCO2 34.6 L POC ABG pO2 ABG pO2 ABG HCO3 ABG Base Excess ABG Hemoglobin Oxyhemoglobin Sodium Potassium Chloride Carbon Dioxide BUN Creatinine Glucose POC Glucose 265 H 184 H Lactic Acid Calcium Ionized Calcium Phosphorus Magnesium Direct Bilirubin AST ALT Alkaline Phosphatase Lactate Dehydrogenase Troponin T C-Reactive Protein Total Protein Albumin Prealbumin Triglycerides Cholesterol LDL Cholesterol Direct HDL Cholesterol 25-OH Vitamin D Total PTH Intact Urine pH Urine WBC (Auto) Urine Creatinine Urine Total Protein Fluid Total Protein Vancomycin Trough Rheumatoid Factor Complement C4 Miscellaneous Test Crossmatch 09/12/16 09/12/16 09/12/16 06:45 06:45 07:22 WBC 31.7 H RBC 3.54 L Hgb 8.3 L Hct 25.9 L MCV 73 L MCH 23 L MCHC RDW 18.9 H Plt Count Lymph % (Auto) [place] % (Auto) Lymph # [place] # Baso # Seg Neutrophils % Seg Neuts % (Manual) 88.5 H Lymphocytes % (Manual) 4.5 L Monocytes % (Manual) Eosinophils % (Manual) Basophils % (Manual) Nucleated RBC % Seg Neutrophils # Seg Neutrophils # Man 28.1 H Lymphocytes # (Manual) Monocytes # (Manual) 1.0 H Eosinophils # (Manual) Basophils # (Manual) PT INR Fibrinogen dRVVT Confirm Interp Factor V Activity POC ABG pH POC ABG pCO2 POC ABG pO2 ABG pO2 ABG HCO3 ABG Base Excess ABG Hemoglobin Oxyhemoglobin Sodium Potassium Chloride Carbon Dioxide 20 L BUN 115 H Creatinine 2.7 H Glucose 165 H POC Glucose Lactic Acid Calcium 8.0 L Ionized Calcium Phosphorus Magnesium Direct Bilirubin AST ALT Alkaline Phosphatase Lactate Dehydrogenase Troponin T C-Reactive Protein Total Protein Albumin Prealbumin Triglycerides 217 H Cholesterol LDL Cholesterol Direct HDL Cholesterol 25-OH Vitamin D Total PTH Intact Urine pH Urine WBC (Auto) Urine Creatinine Urine Total Protein Fluid Total Protein Vancomycin Trough Rheumatoid Factor Complement C4 Miscellaneous Test Crossmatch 09/12/16 09/12/16 09/12/16 07:22 09:59 12:21 WBC RBC Hgb Hct MCV MCH MCHC RDW Plt Count Lymph % (Auto) [place] % (Auto) Lymph # [place] # Baso # Seg Neutrophils % Seg Neuts % (Manual) Lymphocytes % (Manual) Monocytes % (Manual) Eosinophils % (Manual) Basophils % (Manual) Nucleated RBC % Seg Neutrophils # Seg Neutrophils # Man Lymphocytes # (Manual) Monocytes # (Manual) Eosinophils # (Manual) Basophils # (Manual) PT INR Fibrinogen dRVVT Confirm Interp Positive H Factor V Activity POC ABG pH POC ABG pCO2 POC ABG pO2 ABG pO2 ABG HCO3 ABG Base Excess ABG Hemoglobin Oxyhemoglobin Sodium Potassium Chloride Carbon Dioxide BUN Creatinine Glucose POC Glucose 224 H Lactic Acid Calcium Ionized Calcium Phosphorus Magnesium Direct Bilirubin AST ALT Alkaline Phosphatase Lactate Dehydrogenase Troponin T C-Reactive Protein 1.70 H Total Protein Albumin Prealbumin Triglycerides Cholesterol LDL Cholesterol Direct HDL Cholesterol 25-OH Vitamin D Total PTH Intact Urine pH Urine WBC (Auto) Urine Creatinine Urine Total Protein Fluid Total Protein Vancomycin Trough Rheumatoid Factor Complement C4 Miscellaneous Test Crossmatch 09/12/16 09/12/16 09/13/16 16:51 23:28 04:00 WBC 45.0 H* RBC Hgb 9.4 L Hct MCV 75 L MCH 23 L MCHC RDW 19.0 H Plt Count 470 H Lymph % (Auto) [place] % (Auto) Lymph # [place] # Baso # Seg Neutrophils % Seg Neuts % (Manual) 89.0 H Lymphocytes % (Manual) 5.0 L Monocytes % (Manual) Eosinophils % (Manual) Basophils % (Manual) Nucleated RBC % Seg Neutrophils # Seg Neutrophils # Man 40.1 H Lymphocytes # (Manual) Monocytes # (Manual) Eosinophils # (Manual) Basophils # (Manual) PT INR Fibrinogen dRVVT Confirm Interp Factor V Activity POC ABG pH POC ABG pCO2 POC ABG pO2 ABG pO2 ABG HCO3 ABG Base Excess ABG Hemoglobin Oxyhemoglobin Sodium Potassium Chloride Carbon Dioxide BUN Creatinine Glucose POC Glucose 169 H 150 H Lactic Acid Calcium Ionized Calcium Phosphorus Magnesium Direct Bilirubin AST ALT Alkaline Phosphatase Lactate Dehydrogenase Troponin T C-Reactive Protein Total Protein Albumin Prealbumin Triglycerides Cholesterol LDL Cholesterol Direct HDL Cholesterol 25-OH Vitamin D Total PTH Intact Urine pH Urine WBC (Auto) Urine Creatinine Urine Total Protein Fluid Total Protein Vancomycin Trough Rheumatoid Factor Complement C4 Miscellaneous Test Crossmatch 09/13/16 09/13/16 09/13/16 04:00 11:26 17:31 WBC RBC Hgb Hct MCV MCH MCHC RDW Plt Count Lymph % (Auto) [place] % (Auto) Lymph # [place] # Baso # Seg Neutrophils % Seg Neuts % (Manual) Lymphocytes % (Manual) Monocytes % (Manual) Eosinophils % (Manual) Basophils % (Manual) Nucleated RBC % Seg Neutrophils # Seg Neutrophils # Man Lymphocytes # (Manual) Monocytes # (Manual) Eosinophils # (Manual) Basophils # (Manual) PT INR Fibrinogen dRVVT Confirm Interp Factor V Activity POC ABG pH POC ABG pCO2 POC ABG pO2 ABG pO2 ABG HCO3 ABG Base Excess ABG Hemoglobin Oxyhemoglobin Sodium Potassium Chloride Carbon Dioxide 20 L BUN 116 H Creatinine 3.0 H Glucose 172 H POC Glucose 140 H 183 H Lactic Acid Calcium Ionized Calcium Phosphorus Magnesium Direct Bilirubin AST ALT Alkaline Phosphatase Lactate Dehydrogenase Troponin T C-Reactive Protein Total Protein 6.2 L Albumin 2.9 L Prealbumin Triglycerides Cholesterol LDL Cholesterol Direct HDL Cholesterol 25-OH Vitamin D Total PTH Intact Urine pH Urine WBC (Auto) Urine Creatinine Urine Total Protein Fluid Total Protein Vancomycin Trough Rheumatoid Factor Complement C4 Miscellaneous Test Crossmatch 09/13/16 09/14/16 09/14/16 23:23 04:06 04:07 WBC 29.4 H RBC Hgb 8.9 L Hct 27.3 L MCV 75 L MCH 24 L MCHC RDW 19.1 H Plt Count Lymph % (Auto) [place] % (Auto) Lymph # [place] # Baso # Seg Neutrophils % Seg Neuts % (Manual) 84.0 H Lymphocytes % (Manual) 6.0 L Monocytes % (Manual) 9.0 H Eosinophils % (Manual) Basophils % (Manual) Nucleated RBC % Seg Neutrophils # Seg Neutrophils # Man 24.7 H Lymphocytes # (Manual) Monocytes # (Manual) 2.6 H Eosinophils # (Manual) Basophils # (Manual) PT INR Fibrinogen dRVVT Confirm Interp Factor V Activity POC ABG pH 7.342 L POC ABG pCO2 POC ABG pO2 116 H ABG pO2 ABG HCO3 ABG Base Excess ABG Hemoglobin Oxyhemoglobin Sodium Potassium Chloride Carbon Dioxide BUN Creatinine Glucose POC Glucose 154 H Lactic Acid Calcium Ionized Calcium Phosphorus Magnesium Direct Bilirubin AST ALT Alkaline Phosphatase Lactate Dehydrogenase Troponin T C-Reactive Protein Total Protein Albumin Prealbumin Triglycerides Cholesterol LDL Cholesterol Direct HDL Cholesterol 25-OH Vitamin D Total PTH Intact Urine pH Urine WBC (Auto) Urine Creatinine Urine Total Protein Fluid Total Protein Vancomycin Trough Rheumatoid Factor Complement C4 Miscellaneous Test Crossmatch 09/14/16 09/14/16 09/14/16 04:07 05:29 12:19 WBC RBC Hgb Hct MCV MCH MCHC RDW Plt Count Lymph % (Auto) [place] % (Auto) Lymph # [place] # Baso # Seg Neutrophils % Seg Neuts % (Manual) Lymphocytes % (Manual) Monocytes % (Manual) Eosinophils % (Manual) Basophils % (Manual) Nucleated RBC % Seg Neutrophils # Seg Neutrophils # Man Lymphocytes # (Manual) Monocytes # (Manual) Eosinophils # (Manual) Basophils # (Manual) PT INR Fibrinogen dRVVT Confirm Interp Factor V Activity POC ABG pH POC ABG pCO2 POC ABG pO2 ABG pO2 ABG HCO3 ABG Base Excess ABG Hemoglobin Oxyhemoglobin Sodium 136 L Potassium Chloride Carbon Dioxide 18 L BUN 121 H Creatinine 2.8 H Glucose 214 H POC Glucose 239 H 181 H Lactic Acid Calcium Ionized Calcium Phosphorus Magnesium Direct Bilirubin AST ALT Alkaline Phosphatase Lactate Dehydrogenase Troponin T C-Reactive Protein Total Protein Albumin Prealbumin Triglycerides Cholesterol LDL Cholesterol Direct HDL Cholesterol 25-OH Vitamin D Total PTH Intact Urine pH Urine WBC (Auto) Urine Creatinine Urine Total Protein Fluid Total Protein Vancomycin Trough Rheumatoid Factor Complement C4 Miscellaneous Test Crossmatch 09/14/16 09/14/16 09/15/16 18:12 23:37 05:00 WBC 26.1 H RBC 3.05 L Hgb 7.2 L Hct 22.9 L MCV 75 L MCH 24 L MCHC RDW 19.0 H Plt Count Lymph % (Auto) [place] % (Auto) Lymph # [place] # Baso # Seg Neutrophils % Seg Neuts % (Manual) Lymphocytes % (Manual) Monocytes % (Manual) Eosinophils % (Manual) Basophils % (Manual) Nucleated RBC % Seg Neutrophils # Seg Neutrophils # Man Lymphocytes # (Manual) Monocytes # (Manual) Eosinophils # (Manual) Basophils # (Manual) PT INR Fibrinogen dRVVT Confirm Interp Factor V Activity POC ABG pH POC ABG pCO2 POC ABG pO2 ABG pO2 ABG HCO3 ABG Base Excess ABG Hemoglobin Oxyhemoglobin Sodium Potassium Chloride Carbon Dioxide BUN Creatinine Glucose POC Glucose 266 H 154 H Lactic Acid Calcium Ionized Calcium Phosphorus Magnesium Direct Bilirubin AST ALT Alkaline Phosphatase Lactate Dehydrogenase Troponin T C-Reactive Protein Total Protein Albumin Prealbumin Triglycerides Cholesterol LDL Cholesterol Direct HDL Cholesterol 25-OH Vitamin D Total PTH Intact Urine pH Urine WBC (Auto) Urine Creatinine Urine Total Protein Fluid Total Protein Vancomycin Trough Rheumatoid Factor Complement C4 Miscellaneous Test Crossmatch 09/15/16 09/15/16 09/15/16 05:00 05:17 12:45 WBC RBC Hgb Hct MCV MCH MCHC RDW Plt Count Lymph % (Auto) [place] % (Auto) Lymph # [place] # Baso # Seg Neutrophils % Seg Neuts % (Manual) Lymphocytes % (Manual) Monocytes % (Manual) Eosinophils % (Manual) Basophils % (Manual) Nucleated RBC % Seg Neutrophils # Seg Neutrophils # Man Lymphocytes # (Manual) Monocytes # (Manual) Eosinophils # (Manual) Basophils # (Manual) PT INR Fibrinogen dRVVT Confirm Interp Factor V Activity POC ABG pH POC ABG pCO2 POC ABG pO2 ABG pO2 ABG HCO3 ABG Base Excess ABG Hemoglobin Oxyhemoglobin Sodium Potassium 5.2 H Chloride Carbon Dioxide 18 L BUN 139 H Creatinine 3.7 H Glucose 227 H POC Glucose 226 H 244 H Lactic Acid Calcium 8.3 L Ionized Calcium Phosphorus Magnesium Direct Bilirubin AST ALT Alkaline Phosphatase Lactate Dehydrogenase Troponin T C-Reactive Protein Total Protein Albumin Prealbumin Triglycerides Cholesterol LDL Cholesterol Direct HDL Cholesterol 25-OH Vitamin D Total PTH Intact Urine pH Urine WBC (Auto) Urine Creatinine Urine Total Protein Fluid Total Protein Vancomycin Trough Rheumatoid Factor Complement C4 Miscellaneous Test Crossmatch 09/15/16 09/15/16 09/15/16 14:32 17:33 23:35 WBC RBC Hgb Hct MCV MCH MCHC RDW Plt Count Lymph % (Auto) [place] % (Auto) Lymph # [place] # Baso # Seg Neutrophils % Seg Neuts % (Manual) Lymphocytes % (Manual) Monocytes % (Manual) Eosinophils % (Manual) Basophils % (Manual) Nucleated RBC % Seg Neutrophils # Seg Neutrophils # Man Lymphocytes # (Manual) Monocytes # (Manual) Eosinophils # (Manual) Basophils # (Manual) PT INR Fibrinogen dRVVT Confirm Interp Factor V Activity POC ABG pH POC ABG pCO2 27.7 L POC ABG pO2 120 H ABG pO2 ABG HCO3 ABG Base Excess ABG Hemoglobin Oxyhemoglobin Sodium Potassium Chloride Carbon Dioxide BUN Creatinine Glucose POC Glucose 232 H 167 H Lactic Acid Calcium Ionized Calcium Phosphorus Magnesium Direct Bilirubin AST ALT Alkaline Phosphatase Lactate Dehydrogenase Troponin T C-Reactive Protein Total Protein Albumin Prealbumin Triglycerides Cholesterol LDL Cholesterol Direct HDL Cholesterol 25-OH Vitamin D Total PTH Intact Urine pH Urine WBC (Auto) Urine Creatinine Urine Total Protein Fluid Total Protein Vancomycin Trough Rheumatoid Factor Complement C4 Miscellaneous Test Crossmatch 09/16/16 09/16/16 09/16/16 03:58 10:27 10:27 WBC 19.0 H RBC 2.77 L Hgb 6.5 L Hct 20.9 L MCV 76 L MCH 23 L MCHC RDW 19.3 H Plt Count Lymph % (Auto) 11.0 L [place] % (Auto) Lymph # [place] # 1.1 H Baso # Seg Neutrophils % 82.5 H Seg Neuts % (Manual) Lymphocytes % (Manual) Monocytes % (Manual) Eosinophils % (Manual) Basophils % (Manual) Nucleated RBC % Seg Neutrophils # 15.7 H Seg Neutrophils # Man Lymphocytes # (Manual) Monocytes # (Manual) Eosinophils # (Manual) Basophils # (Manual) PT INR Fibrinogen dRVVT Confirm Interp Factor V Activity POC ABG pH POC ABG pCO2 POC ABG pO2 ABG pO2 ABG HCO3 ABG Base Excess ABG Hemoglobin Oxyhemoglobin Sodium Potassium Chloride 109.3 H Carbon Dioxide 18 L BUN 139 H Creatinine 4.1 H Glucose 144 H POC Glucose 146 H Lactic Acid Calcium 8.1 L Ionized Calcium Phosphorus Magnesium Direct Bilirubin AST ALT Alkaline Phosphatase Lactate Dehydrogenase Troponin T C-Reactive Protein Total Protein Albumin Prealbumin Triglycerides Cholesterol LDL Cholesterol Direct HDL Cholesterol 25-OH Vitamin D Total PTH Intact Urine pH Urine WBC (Auto) Urine Creatinine Urine Total Protein Fluid Total Protein Vancomycin Trough Rheumatoid Factor Complement C4 Miscellaneous Test Crossmatch 09/16/16 09/16/16 09/16/16 12:04 12:10 13:55 WBC RBC Hgb Hct MCV MCH MCHC RDW Plt Count Lymph % (Auto) [place] % (Auto) Lymph # [place] # Baso # Seg Neutrophils % Seg Neuts % (Manual) Lymphocytes % (Manual) Monocytes % (Manual) Eosinophils % (Manual) Basophils % (Manual) Nucleated RBC % Seg Neutrophils # Seg Neutrophils # Man Lymphocytes # (Manual) Monocytes # (Manual) Eosinophils # (Manual) Basophils # (Manual) PT INR Fibrinogen dRVVT Confirm Interp Factor V Activity POC ABG pH POC ABG pCO2 32.9 L POC ABG pO2 ABG pO2 ABG HCO3 ABG Base Excess ABG Hemoglobin Oxyhemoglobin Sodium Potassium Chloride Carbon Dioxide BUN Creatinine Glucose POC Glucose 185 H Lactic Acid Calcium Ionized Calcium Phosphorus Magnesium Direct Bilirubin AST ALT Alkaline Phosphatase Lactate Dehydrogenase Troponin T C-Reactive Protein Total Protein Albumin Prealbumin Triglycerides Cholesterol LDL Cholesterol Direct HDL Cholesterol 25-OH Vitamin D Total PTH Intact Urine pH Urine WBC (Auto) Urine Creatinine Urine Total Protein Fluid Total Protein Vancomycin Trough Rheumatoid Factor Complement C4 Miscellaneous Test Crossmatch See Detail 09/16/16 09/16/16 09/16/16 17:55 19:19 23:48 WBC RBC Hgb Hct MCV MCH MCHC RDW Plt Count Lymph % (Auto) [place] % (Auto) Lymph # [place] # Baso # Seg Neutrophils % Seg Neuts % (Manual) Lymphocytes % (Manual) Monocytes % (Manual) Eosinophils % (Manual) Basophils % (Manual) Nucleated RBC % Seg Neutrophils # Seg Neutrophils # Man Lymphocytes # (Manual) Monocytes # (Manual) Eosinophils # (Manual) Basophils # (Manual) PT INR Fibrinogen dRVVT Confirm Interp Factor V Activity POC ABG pH POC ABG pCO2 POC ABG pO2 ABG pO2 ABG HCO3 ABG Base Excess ABG Hemoglobin Oxyhemoglobin Sodium Potassium Chloride Carbon Dioxide BUN Creatinine Glucose POC Glucose 222 H 107 H Lactic Acid Calcium Ionized Calcium Phosphorus Magnesium Direct Bilirubin AST ALT Alkaline Phosphatase Lactate Dehydrogenase Troponin T C-Reactive Protein Total Protein Albumin Prealbumin Triglycerides Cholesterol LDL Cholesterol Direct HDL Cholesterol 25-OH Vitamin D Total PTH Intact Urine pH Urine WBC (Auto) Urine Creatinine 47.4 H Urine Total Protein 16 H Fluid Total Protein Vancomycin Trough Rheumatoid Factor Complement C4 Miscellaneous Test Crossmatch 09/17/16 09/17/16 09/17/16 03:45 03:45 04:55 WBC 19.6 H RBC 3.41 L Hgb 8.5 L Hct 26.7 L MCV 78 L MCH 25 L MCHC RDW 19.9 H Plt Count Lymph % (Auto) 9.3 L [place] % (Auto) Lymph # [place] # 1.2 H Baso # Seg Neutrophils % 83.9 H Seg Neuts % (Manual) Lymphocytes % (Manual) Monocytes % (Manual) Eosinophils % (Manual) Basophils % (Manual) Nucleated RBC % Seg Neutrophils # 16.4 H Seg Neutrophils # Man Lymphocytes # (Manual) Monocytes # (Manual) Eosinophils # (Manual) Basophils # (Manual) PT INR Fibrinogen dRVVT Confirm Interp Factor V Activity POC ABG pH POC ABG pCO2 POC ABG pO2 ABG pO2 ABG HCO3 ABG Base Excess ABG Hemoglobin Oxyhemoglobin Sodium 146 H Potassium 5.1 H Chloride 110.9 H Carbon Dioxide 16 L BUN 146 H Creatinine 4.0 H Glucose 108 H POC Glucose 133 H Lactic Acid Calcium Ionized Calcium Phosphorus Magnesium 3.00 H Direct Bilirubin AST ALT Alkaline Phosphatase Lactate Dehydrogenase Troponin T C-Reactive Protein Total Protein Albumin Prealbumin Triglycerides Cholesterol LDL Cholesterol Direct HDL Cholesterol 25-OH Vitamin D Total PTH Intact Urine pH Urine WBC (Auto) Urine Creatinine Urine Total Protein Fluid Total Protein Vancomycin Trough Rheumatoid Factor Complement C4 Miscellaneous Test Crossmatch 09/17/16 09/17/16 09/17/16 11:15 17:33 23:47 WBC RBC Hgb Hct MCV MCH MCHC RDW Plt Count Lymph % (Auto) [place] % (Auto) Lymph # [place] # Baso # Seg Neutrophils % Seg Neuts % (Manual) Lymphocytes % (Manual) Monocytes % (Manual) Eosinophils % (Manual) Basophils % (Manual) Nucleated RBC % Seg Neutrophils # Seg Neutrophils # Man Lymphocytes # (Manual) Monocytes # (Manual) Eosinophils # (Manual) Basophils # (Manual) PT INR Fibrinogen dRVVT Confirm Interp Factor V Activity POC ABG pH POC ABG pCO2 POC ABG pO2 ABG pO2 ABG HCO3 ABG Base Excess ABG Hemoglobin Oxyhemoglobin Sodium Potassium Chloride Carbon Dioxide BUN Creatinine Glucose POC Glucose 176 H 246 H 148 H Lactic Acid Calcium Ionized Calcium Phosphorus Magnesium Direct Bilirubin AST ALT Alkaline Phosphatase Lactate Dehydrogenase Troponin T C-Reactive Protein Total Protein Albumin Prealbumin Triglycerides Cholesterol LDL Cholesterol Direct HDL Cholesterol 25-OH Vitamin D Total PTH Intact Urine pH Urine WBC (Auto) Urine Creatinine Urine Total Protein Fluid Total Protein Vancomycin Trough Rheumatoid Factor Complement C4 Miscellaneous Test Crossmatch 09/18/16 09/18/16 09/18/16 05:33 08:31 08:31 WBC 18.0 H RBC 3.17 L Hgb 9.0 L Hct 25.7 L MCV MCH MCHC 35 H RDW 20.4 H Plt Count Lymph % (Auto) [place] % (Auto) Lymph # [place] # Baso # Seg Neutrophils % Seg Neuts % (Manual) Lymphocytes % (Manual) Monocytes % (Manual) Eosinophils % (Manual) Basophils % (Manual) Nucleated RBC % Seg Neutrophils # Seg Neutrophils # Man Lymphocytes # (Manual) Monocytes # (Manual) Eosinophils # (Manual) Basophils # (Manual) PT INR Fibrinogen dRVVT Confirm Interp Factor V Activity POC ABG pH POC ABG pCO2 POC ABG pO2 ABG pO2 ABG HCO3 ABG Base Excess ABG Hemoglobin Oxyhemoglobin Sodium Potassium Chloride Carbon Dioxide 15 L BUN 124 H Creatinine 3.8 H Glucose POC Glucose 120 H Lactic Acid Calcium 8.1 L Ionized Calcium Phosphorus Magnesium Direct Bilirubin AST ALT Alkaline Phosphatase Lactate Dehydrogenase Troponin T C-Reactive Protein Total Protein Albumin Prealbumin Triglycerides Cholesterol LDL Cholesterol Direct HDL Cholesterol 25-OH Vitamin D Total PTH Intact Urine pH Urine WBC (Auto) Urine Creatinine Urine Total Protein Fluid Total Protein Vancomycin Trough Rheumatoid Factor Complement C4 Miscellaneous Test Crossmatch 09/18/16 09/18/16 09/18/16 12:03 15:34 17:50 WBC RBC Hgb Hct MCV MCH MCHC RDW Plt Count Lymph % (Auto) [place] % (Auto) Lymph # [place] # Baso # Seg Neutrophils % Seg Neuts % (Manual) Lymphocytes % (Manual) Monocytes % (Manual) Eosinophils % (Manual) Basophils % (Manual) Nucleated RBC % Seg Neutrophils # Seg Neutrophils # Man Lymphocytes # (Manual) Monocytes # (Manual) Eosinophils # (Manual) Basophils # (Manual) PT INR Fibrinogen dRVVT Confirm Interp Factor V Activity POC ABG pH POC ABG pCO2 25.7 L POC ABG pO2 66 L ABG pO2 ABG HCO3 ABG Base Excess ABG Hemoglobin Oxyhemoglobin Sodium Potassium Chloride Carbon Dioxide BUN Creatinine Glucose POC Glucose 156 H 220 H Lactic Acid Calcium Ionized Calcium Phosphorus Magnesium Direct Bilirubin AST ALT Alkaline Phosphatase Lactate Dehydrogenase Troponin T C-Reactive Protein Total Protein Albumin Prealbumin Triglycerides Cholesterol LDL Cholesterol Direct HDL Cholesterol 25-OH Vitamin D Total PTH Intact Urine pH Urine WBC (Auto) Urine Creatinine Urine Total Protein Fluid Total Protein Vancomycin Trough Rheumatoid Factor Complement C4 Miscellaneous Test Crossmatch 09/19/16 09/19/16 09/19/16 06:21 09:50 09:50 WBC 17.1 H RBC 3.49 L Hgb 9.0 L Hct 28.1 L MCV MCH 26 L MCHC RDW 20.8 H Plt Count Lymph % (Auto) 11.5 L [place] % (Auto) 7.5 H Lymph # [place] # 1.3 H Baso # Seg Neutrophils % 79.8 H Seg Neuts % (Manual) Lymphocytes % (Manual) Monocytes % (Manual) Eosinophils % (Manual) Basophils % (Manual) Nucleated RBC % Seg Neutrophils # 13.7 H Seg Neutrophils # Man Lymphocytes # (Manual) Monocytes # (Manual) Eosinophils # (Manual) Basophils # (Manual) PT INR Fibrinogen dRVVT Confirm Interp Factor V Activity POC ABG pH POC ABG pCO2 POC ABG pO2 ABG pO2 ABG HCO3 ABG Base Excess ABG Hemoglobin Oxyhemoglobin Sodium Potassium Chloride 108.6 H Carbon Dioxide 15 L BUN 125 H Creatinine 4.1 H Glucose 124 H POC Glucose 119 H Lactic Acid Calcium Ionized Calcium Phosphorus Magnesium Direct Bilirubin AST ALT Alkaline Phosphatase Lactate Dehydrogenase Troponin T C-Reactive Protein Total Protein Albumin Prealbumin Triglycerides Cholesterol LDL Cholesterol Direct HDL Cholesterol 25-OH Vitamin D Total PTH Intact Urine pH Urine WBC (Auto) Urine Creatinine Urine Total Protein Fluid Total Protein Vancomycin Trough Rheumatoid Factor Complement C4 Miscellaneous Test Crossmatch 09/19/16 09/19/16 09/19/16 11:25 17:53 23:36 WBC RBC Hgb Hct MCV MCH MCHC RDW Plt Count Lymph % (Auto) [place] % (Auto) Lymph # [place] # Baso # Seg Neutrophils % Seg Neuts % (Manual) Lymphocytes % (Manual) Monocytes % (Manual) Eosinophils % (Manual) Basophils % (Manual) Nucleated RBC % Seg Neutrophils # Seg Neutrophils # Man Lymphocytes # (Manual) Monocytes # (Manual) Eosinophils # (Manual) Basophils # (Manual) PT INR Fibrinogen dRVVT Confirm Interp Factor V Activity POC ABG pH POC ABG pCO2 POC ABG pO2 ABG pO2 ABG HCO3 ABG Base Excess ABG Hemoglobin Oxyhemoglobin Sodium Potassium Chloride Carbon Dioxide BUN Creatinine Glucose POC Glucose 160 H 245 H 121 H Lactic Acid Calcium Ionized Calcium Phosphorus Magnesium Direct Bilirubin AST ALT Alkaline Phosphatase Lactate Dehydrogenase Troponin T C-Reactive Protein Total Protein Albumin Prealbumin Triglycerides Cholesterol LDL Cholesterol Direct HDL Cholesterol 25-OH Vitamin D Total PTH Intact Urine pH Urine WBC (Auto) Urine Creatinine Urine Total Protein Fluid Total Protein Vancomycin Trough Rheumatoid Factor Complement C4 Miscellaneous Test Crossmatch 09/20/16 09/20/16 09/20/16 04:10 04:10 04:10 WBC 17.0 H RBC 3.21 L Hgb 8.2 L Hct 25.5 L MCV MCH 26 L MCHC RDW 20.9 H Plt Count Lymph % (Auto) [place] % (Auto) Lymph # [place] # Baso # Seg Neutrophils % Seg Neuts % (Manual) Lymphocytes % (Manual) Monocytes % (Manual) Eosinophils % (Manual) Basophils % (Manual) Nucleated RBC % Seg Neutrophils # Seg Neutrophils # Man Lymphocytes # (Manual) Monocytes # (Manual) Eosinophils # (Manual) Basophils # (Manual) PT INR Fibrinogen dRVVT Confirm Interp Factor V Activity POC ABG pH POC ABG pCO2 POC ABG pO2 ABG pO2 ABG HCO3 ABG Base Excess ABG Hemoglobin Oxyhemoglobin Sodium Potassium Chloride 111.0 H Carbon Dioxide 16 L BUN 129 H Creatinine 3.7 H Glucose 115 H POC Glucose Lactic Acid Calcium 8.2 L Ionized Calcium Phosphorus Magnesium Direct Bilirubin AST ALT Alkaline Phosphatase Lactate Dehydrogenase Troponin T C-Reactive Protein Total Protein Albumin Prealbumin Triglycerides 243 H Cholesterol LDL Cholesterol Direct HDL Cholesterol 25-OH Vitamin D Total PTH Intact Urine pH Urine WBC (Auto) Urine Creatinine Urine Total Protein Fluid Total Protein Vancomycin Trough Rheumatoid Factor Complement C4 Miscellaneous Test Crossmatch 09/20/16 09/20/16 09/20/16 05:40 11:52 16:50 WBC RBC Hgb Hct MCV MCH MCHC RDW Plt Count Lymph % (Auto) [place] % (Auto) Lymph # [place] # Baso # Seg Neutrophils % Seg Neuts % (Manual) Lymphocytes % (Manual) Monocytes % (Manual) Eosinophils % (Manual) Basophils % (Manual) Nucleated RBC % Seg Neutrophils # Seg Neutrophils # Man Lymphocytes # (Manual) Monocytes # (Manual) Eosinophils # (Manual) Basophils # (Manual) PT INR Fibrinogen dRVVT Confirm Interp Factor V Activity POC ABG pH POC ABG pCO2 POC ABG pO2 ABG pO2 ABG HCO3 ABG Base Excess ABG Hemoglobin Oxyhemoglobin Sodium Potassium Chloride Carbon Dioxide BUN Creatinine Glucose POC Glucose 131 H 183 H 236 H Lactic Acid Calcium Ionized Calcium Phosphorus Magnesium Direct Bilirubin AST ALT Alkaline Phosphatase Lactate Dehydrogenase Troponin T C-Reactive Protein Total Protein Albumin Prealbumin Triglycerides Cholesterol LDL Cholesterol Direct HDL Cholesterol 25-OH Vitamin D Total PTH Intact Urine pH Urine WBC (Auto) Urine Creatinine Urine Total Protein Fluid Total Protein Vancomycin Trough Rheumatoid Factor Complement C4 Miscellaneous Test Crossmatch 09/20/16 09/21/16 09/21/16 23:51 03:30 04:44 WBC RBC Hgb Hct MCV MCH MCHC RDW Plt Count Lymph % (Auto) [place] % (Auto) Lymph # [place] # Baso # Seg Neutrophils % Seg Neuts % (Manual) Lymphocytes % (Manual) Monocytes % (Manual) Eosinophils % (Manual) Basophils % (Manual) Nucleated RBC % Seg Neutrophils # Seg Neutrophils # Man Lymphocytes # (Manual) Monocytes # (Manual) Eosinophils # (Manual) Basophils # (Manual) PT INR Fibrinogen dRVVT Confirm Interp Factor V Activity POC ABG pH POC ABG pCO2 POC ABG pO2 ABG pO2 ABG HCO3 ABG Base Excess ABG Hemoglobin Oxyhemoglobin Sodium Potassium Chloride Carbon Dioxide BUN Creatinine Glucose POC Glucose 114 H 141 H Lactic Acid Calcium Ionized Calcium Phosphorus Magnesium 2.70 H Direct Bilirubin AST ALT Alkaline Phosphatase Lactate Dehydrogenase Troponin T C-Reactive Protein Total Protein Albumin Prealbumin Triglycerides Cholesterol LDL Cholesterol Direct HDL Cholesterol 25-OH Vitamin D Total PTH Intact Urine pH Urine WBC (Auto) Urine Creatinine Urine Total Protein Fluid Total Protein Vancomycin Trough Rheumatoid Factor Complement C4 Miscellaneous Test Crossmatch 09/21/16 09/21/16 09/21/16 07:45 07:45 10:01 WBC 13.8 H RBC 2.94 L Hgb 7.5 L Hct 23.5 L MCV MCH 26 L MCHC RDW 21.2 H Plt Count Lymph % (Auto) 6.9 L [place] % (Auto) 9.4 H Lymph # 0.9 L [place] # 1.3 H Baso # Seg Neutrophils % 83.2 H Seg Neuts % (Manual) Lymphocytes % (Manual) Monocytes % (Manual) Eosinophils % (Manual) Basophils % (Manual) Nucleated RBC % Seg Neutrophils # 11.5 H Seg Neutrophils # Man Lymphocytes # (Manual) Monocytes # (Manual) Eosinophils # (Manual) Basophils # (Manual) PT INR Fibrinogen dRVVT Confirm Interp Factor V Activity POC ABG pH 7.308 L POC ABG pCO2 31.9 L POC ABG pO2 148 H ABG pO2 ABG HCO3 ABG Base Excess ABG Hemoglobin Oxyhemoglobin Sodium 147 H Potassium Chloride 114.2 H Carbon Dioxide 15 L BUN 120 H Creatinine 3.9 H Glucose 156 H POC Glucose Lactic Acid Calcium 8.2 L Ionized Calcium Phosphorus Magnesium Direct Bilirubin AST ALT Alkaline Phosphatase Lactate Dehydrogenase Troponin T C-Reactive Protein Total Protein Albumin Prealbumin Triglycerides Cholesterol LDL Cholesterol Direct HDL Cholesterol 25-OH Vitamin D Total PTH Intact Urine pH Urine WBC (Auto) Urine Creatinine Urine Total Protein Fluid Total Protein Vancomycin Trough Rheumatoid Factor Complement C4 Miscellaneous Test Crossmatch 09/21/16 09/21/16 09/21/16 12:00 12:03 13:00 WBC RBC Hgb Hct MCV MCH MCHC RDW Plt Count Lymph % (Auto) [place] % (Auto) Lymph # [place] # Baso # Seg Neutrophils % Seg Neuts % (Manual) Lymphocytes % (Manual) Monocytes % (Manual) Eosinophils % (Manual) Basophils % (Manual) Nucleated RBC % Seg Neutrophils # Seg Neutrophils # Man Lymphocytes # (Manual) Monocytes # (Manual) Eosinophils # (Manual) Basophils # (Manual) PT INR Fibrinogen dRVVT Confirm Interp Factor V Activity POC ABG pH POC ABG pCO2 POC ABG pO2 ABG pO2 ABG HCO3 ABG Base Excess ABG Hemoglobin Oxyhemoglobin Sodium Potassium Chloride Carbon Dioxide BUN Creatinine Glucose POC Glucose 163 H Lactic Acid Calcium Ionized Calcium Phosphorus Magnesium Direct Bilirubin AST ALT Alkaline Phosphatase Lactate Dehydrogenase Troponin T C-Reactive Protein Total Protein Albumin Prealbumin Triglycerides Cholesterol LDL Cholesterol Direct HDL Cholesterol 25-OH Vitamin D Total PTH Intact Urine pH Urine WBC (Auto) Urine Creatinine 54.8 H Urine Total Protein Fluid Total Protein Vancomycin Trough 2.3 L Rheumatoid Factor Complement C4 Miscellaneous Test Crossmatch 09/21/16 09/21/16 09/22/16 16:51 23:17 06:27 WBC RBC Hgb Hct MCV MCH MCHC RDW Plt Count Lymph % (Auto) [place] % (Auto) Lymph # [place] # Baso # Seg Neutrophils % Seg Neuts % (Manual) Lymphocytes % (Manual) Monocytes % (Manual) Eosinophils % (Manual) Basophils % (Manual) Nucleated RBC % Seg Neutrophils # Seg Neutrophils # Man Lymphocytes # (Manual) Monocytes # (Manual) Eosinophils # (Manual) Basophils # (Manual) PT INR Fibrinogen dRVVT Confirm Interp Factor V Activity POC ABG pH POC ABG pCO2 POC ABG pO2 ABG pO2 ABG HCO3 ABG Base Excess ABG Hemoglobin Oxyhemoglobin Sodium Potassium Chloride Carbon Dioxide BUN Creatinine Glucose POC Glucose 206 H 114 H 115 H Lactic Acid Calcium Ionized Calcium Phosphorus Magnesium Direct Bilirubin AST ALT Alkaline Phosphatase Lactate Dehydrogenase Troponin T C-Reactive Protein Total Protein Albumin Prealbumin Triglycerides Cholesterol LDL Cholesterol Direct HDL Cholesterol 25-OH Vitamin D Total PTH Intact Urine pH Urine WBC (Auto) Urine Creatinine Urine Total Protein Fluid Total Protein Vancomycin Trough Rheumatoid Factor Complement C4 Miscellaneous Test Crossmatch 09/22/16 09/22/16 09/22/16 07:50 07:50 12:00 WBC 17.8 H RBC 3.04 L Hgb 8.0 L Hct 24.7 L MCV MCH 26 L MCHC RDW 21.6 H Plt Count Lymph % (Auto) [place] % (Auto) Lymph # [place] # Baso # Seg Neutrophils % Seg Neuts % (Manual) Lymphocytes % (Manual) Monocytes % (Manual) Eosinophils % (Manual) Basophils % (Manual) Nucleated RBC % Seg Neutrophils # Seg Neutrophils # Man Lymphocytes # (Manual) Monocytes # (Manual) Eosinophils # (Manual) Basophils # (Manual) PT INR Fibrinogen dRVVT Confirm Interp Factor V Activity POC ABG pH POC ABG pCO2 POC ABG pO2 ABG pO2 ABG HCO3 ABG Base Excess ABG Hemoglobin Oxyhemoglobin Sodium 150 H Potassium Chloride 118.2 H Carbon Dioxide 14 L BUN 111 H Creatinine 3.7 H Glucose 157 H POC Glucose 183 H Lactic Acid Calcium Ionized Calcium Phosphorus Magnesium Direct Bilirubin AST ALT Alkaline Phosphatase Lactate Dehydrogenase Troponin T C-Reactive Protein Total Protein Albumin Prealbumin Triglycerides Cholesterol LDL Cholesterol Direct HDL Cholesterol 25-OH Vitamin D Total PTH Intact Urine pH Urine WBC (Auto) Urine Creatinine Urine Total Protein Fluid Total Protein Vancomycin Trough Rheumatoid Factor Complement C4 Miscellaneous Test Crossmatch 09/22/16 09/22/16 09/23/16 17:29 23:10 05:00 WBC 19.2 H RBC 3.13 L Hgb 8.0 L Hct 25.2 L MCV MCH 26 L MCHC RDW 22.1 H Plt Count Lymph % (Auto) [place] % (Auto) Lymph # [place] # Baso # Seg Neutrophils % Seg Neuts % (Manual) 92.0 H Lymphocytes % (Manual) 3.0 L Monocytes % (Manual) Eosinophils % (Manual) Basophils % (Manual) Nucleated RBC % Seg Neutrophils # Seg Neutrophils # Man 17.7 H Lymphocytes # (Manual) 0.6 L Monocytes # (Manual) Eosinophils # (Manual) Basophils # (Manual) PT INR Fibrinogen dRVVT Confirm Interp Factor V Activity POC ABG pH POC ABG pCO2 POC ABG pO2 ABG pO2 ABG HCO3 ABG Base Excess ABG Hemoglobin Oxyhemoglobin Sodium Potassium Chloride Carbon Dioxide BUN Creatinine Glucose POC Glucose 197 H 169 H Lactic Acid Calcium Ionized Calcium Phosphorus Magnesium Direct Bilirubin AST ALT Alkaline Phosphatase Lactate Dehydrogenase Troponin T C-Reactive Protein Total Protein Albumin Prealbumin Triglycerides Cholesterol LDL Cholesterol Direct HDL Cholesterol 25-OH Vitamin D Total PTH Intact Urine pH Urine WBC (Auto) Urine Creatinine Urine Total Protein Fluid Total Protein Vancomycin Trough Rheumatoid Factor Complement C4 Miscellaneous Test Crossmatch 09/23/16 09/23/16 09/23/16 05:00 05:00 05:10 WBC RBC Hgb Hct MCV MCH MCHC RDW Plt Count Lymph % (Auto) [place] % (Auto) Lymph # [place] # Baso # Seg Neutrophils % Seg Neuts % (Manual) Lymphocytes % (Manual) Monocytes % (Manual) Eosinophils % (Manual) Basophils % (Manual) Nucleated RBC % Seg Neutrophils # Seg Neutrophils # Man Lymphocytes # (Manual) Monocytes # (Manual) Eosinophils # (Manual) Basophils # (Manual) PT INR Fibrinogen dRVVT Confirm Interp Factor V Activity POC ABG pH POC ABG pCO2 POC ABG pO2 ABG pO2 ABG HCO3 ABG Base Excess ABG Hemoglobin Oxyhemoglobin Sodium 147 H Potassium 3.2 L Chloride 115.7 H Carbon Dioxide 13 L BUN 111 H Creatinine 3.8 H Glucose 194 H POC Glucose 188 H Lactic Acid Calcium 7.3 L D Ionized Calcium Phosphorus Magnesium Direct Bilirubin AST ALT Alkaline Phosphatase Lactate Dehydrogenase Troponin T C-Reactive Protein 3.20 H Total Protein Albumin Prealbumin Triglycerides Cholesterol LDL Cholesterol Direct HDL Cholesterol 25-OH Vitamin D Total PTH Intact Urine pH Urine WBC (Auto) Urine Creatinine Urine Total Protein Fluid Total Protein Vancomycin Trough Rheumatoid Factor Complement C4 Miscellaneous Test Crossmatch 09/23/16 09/23/16 09/23/16 11:37 12:29 18:01 WBC RBC Hgb Hct MCV MCH MCHC RDW Plt Count Lymph % (Auto) [place] % (Auto) Lymph # [place] # Baso # Seg Neutrophils % Seg Neuts % (Manual) Lymphocytes % (Manual) Monocytes % (Manual) Eosinophils % (Manual) Basophils % (Manual) Nucleated RBC % Seg Neutrophils # Seg Neutrophils # Man Lymphocytes # (Manual) Monocytes # (Manual) Eosinophils # (Manual) Basophils # (Manual) PT INR Fibrinogen dRVVT Confirm Interp Factor V Activity POC ABG pH POC ABG pCO2 18.9 L POC ABG pO2 143 H ABG pO2 ABG HCO3 ABG Base Excess ABG Hemoglobin Oxyhemoglobin Sodium Potassium Chloride Carbon Dioxide BUN Creatinine Glucose POC Glucose 153 H 108 H Lactic Acid Calcium Ionized Calcium Phosphorus Magnesium Direct Bilirubin AST ALT Alkaline Phosphatase Lactate Dehydrogenase Troponin T C-Reactive Protein Total Protein Albumin Prealbumin Triglycerides Cholesterol LDL Cholesterol Direct HDL Cholesterol 25-OH Vitamin D Total PTH Intact Urine pH Urine WBC (Auto) Urine Creatinine Urine Total Protein Fluid Total Protein Vancomycin Trough Rheumatoid Factor Complement C4 Miscellaneous Test Crossmatch 09/23/16 09/23/16 09/24/16 21:19 23:43 05:16 WBC RBC Hgb Hct MCV MCH MCHC RDW Plt Count Lymph % (Auto) [place] % (Auto) Lymph # [place] # Baso # Seg Neutrophils % Seg Neuts % (Manual) Lymphocytes % (Manual) Monocytes % (Manual) Eosinophils % (Manual) Basophils % (Manual) Nucleated RBC % Seg Neutrophils # Seg Neutrophils # Man Lymphocytes # (Manual) Monocytes # (Manual) Eosinophils # (Manual) Basophils # (Manual) PT INR Fibrinogen dRVVT Confirm Interp Factor V Activity POC ABG pH POC ABG pCO2 17.3 L POC ABG pO2 112 H ABG pO2 ABG HCO3 ABG Base Excess ABG Hemoglobin Oxyhemoglobin Sodium Potassium Chloride Carbon Dioxide BUN Creatinine Glucose POC Glucose 143 H 164 H Lactic Acid Calcium Ionized Calcium Phosphorus Magnesium Direct Bilirubin AST ALT Alkaline Phosphatase Lactate Dehydrogenase Troponin T C-Reactive Protein Total Protein Albumin Prealbumin Triglycerides Cholesterol LDL Cholesterol Direct HDL Cholesterol 25-OH Vitamin D Total PTH Intact Urine pH Urine WBC (Auto) Urine Creatinine Urine Total Protein Fluid Total Protein Vancomycin Trough Rheumatoid Factor Complement C4 Miscellaneous Test Crossmatch 09/24/16 09/24/16 09/24/16 05:21 11:58 17:06 WBC RBC Hgb Hct MCV MCH MCHC RDW Plt Count Lymph % (Auto) [place] % (Auto) Lymph # [place] # Baso # Seg Neutrophils % Seg Neuts % (Manual) Lymphocytes % (Manual) Monocytes % (Manual) Eosinophils % (Manual) Basophils % (Manual) Nucleated RBC % Seg Neutrophils # Seg Neutrophils # Man Lymphocytes # (Manual) Monocytes # (Manual) Eosinophils # (Manual) Basophils # (Manual) PT INR Fibrinogen dRVVT Confirm Interp Factor V Activity POC ABG pH POC ABG pCO2 POC ABG pO2 ABG pO2 ABG HCO3 ABG Base Excess ABG Hemoglobin Oxyhemoglobin Sodium Potassium Chloride Carbon Dioxide 10 L BUN 103 H Creatinine 4.3 H Glucose 163 H POC Glucose 173 H 167 H Lactic Acid Calcium 6.5 L Ionized Calcium Phosphorus Magnesium Direct Bilirubin AST ALT Alkaline Phosphatase Lactate Dehydrogenase Troponin T C-Reactive Protein Total Protein Albumin Prealbumin Triglycerides Cholesterol LDL Cholesterol Direct HDL Cholesterol 25-OH Vitamin D Total PTH Intact Urine pH Urine WBC (Auto) Urine Creatinine Urine Total Protein Fluid Total Protein Vancomycin Trough Rheumatoid Factor Complement C4 Miscellaneous Test Crossmatch 09/24/16 09/24/16 09/24/16 20:15 21:02 23:48 WBC RBC Hgb Hct MCV MCH MCHC RDW Plt Count Lymph % (Auto) [place] % (Auto) Lymph # [place] # Baso # Seg Neutrophils % Seg Neuts % (Manual) Lymphocytes % (Manual) Monocytes % (Manual) Eosinophils % (Manual) Basophils % (Manual) Nucleated RBC % Seg Neutrophils # Seg Neutrophils # Man Lymphocytes # (Manual) Monocytes # (Manual) Eosinophils # (Manual) Basophils # (Manual) PT INR Fibrinogen dRVVT Confirm Interp Factor V Activity POC ABG pH 7.288 L POC ABG pCO2 30.2 L 21.5 L POC ABG pO2 32 L 39 L ABG pO2 ABG HCO3 ABG Base Excess ABG Hemoglobin Oxyhemoglobin Sodium Potassium Chloride Carbon Dioxide BUN Creatinine Glucose POC Glucose 109 H Lactic Acid Calcium Ionized Calcium Phosphorus Magnesium Direct Bilirubin AST ALT Alkaline Phosphatase Lactate Dehydrogenase Troponin T C-Reactive Protein Total Protein Albumin Prealbumin Triglycerides Cholesterol LDL Cholesterol Direct HDL Cholesterol 25-OH Vitamin D Total PTH Intact Urine pH Urine WBC (Auto) Urine Creatinine Urine Total Protein Fluid Total Protein Vancomycin Trough Rheumatoid Factor Complement C4 Miscellaneous Test Crossmatch 09/25/16 09/25/16 09/25/16 04:20 04:20 04:20 WBC RBC 2.58 L Hgb 7.0 L Hct 21.0 L MCV MCH 27 L MCHC RDW 23.8 H Plt Count Lymph % (Auto) [place] % (Auto) Lymph # [place] # Baso # Seg Neutrophils % Seg Neuts % (Manual) Lymphocytes % (Manual) 12.0 L Monocytes % (Manual) Eosinophils % (Manual) 7.0 H Basophils % (Manual) 2.0 H Nucleated RBC % Seg Neutrophils # Seg Neutrophils # Man Lymphocytes # (Manual) 0.9 L Monocytes # (Manual) Eosinophils # (Manual) 0.5 H Basophils # (Manual) PT INR Fibrinogen dRVVT Confirm Interp Factor V Activity POC ABG pH POC ABG pCO2 POC ABG pO2 ABG pO2 ABG HCO3 ABG Base Excess ABG Hemoglobin Oxyhemoglobin Sodium Potassium Chloride Carbon Dioxide 15 L BUN 72 H Creatinine 3.8 H Glucose POC Glucose Lactic Acid Calcium 6.0 L Ionized Calcium Phosphorus 4.60 H Magnesium 1.60 L Direct Bilirubin AST ALT Alkaline Phosphatase Lactate Dehydrogenase Troponin T C-Reactive Protein Total Protein Albumin Prealbumin Triglycerides Cholesterol LDL Cholesterol Direct HDL Cholesterol 25-OH Vitamin D Total PTH Intact Urine pH Urine WBC (Auto) Urine Creatinine Urine Total Protein Fluid Total Protein Vancomycin Trough Rheumatoid Factor Complement C4 Miscellaneous Test Crossmatch 08/06/17 08/06/17 08/06/17 04:57 08:02 10:30 WBC RBC Hgb Hct MCV MCH MCHC RDW Plt Count Lymph % (Auto) [place] % (Auto) Lymph # [place] # Baso # Seg Neutrophils % Seg Neuts % (Manual) Lymphocytes % (Manual) Monocytes % (Manual) Eosinophils % (Manual) Basophils % (Manual) Nucleated RBC % Seg Neutrophils # Seg Neutrophils # Man Lymphocytes # (Manual) Monocytes # (Manual) Eosinophils # (Manual) Basophils # (Manual) PT INR Fibrinogen dRVVT Confirm Interp Factor V Activity POC ABG pH POC ABG pCO2 24.7 L POC ABG pO2 152 H ABG pO2 ABG HCO3 ABG Base Excess ABG Hemoglobin Oxyhemoglobin Sodium Potassium Chloride Carbon Dioxide BUN Creatinine Glucose POC Glucose 113 H Lactic Acid Calcium Ionized Calcium Phosphorus Magnesium Direct Bilirubin AST ALT Alkaline Phosphatase Lactate Dehydrogenase Troponin T C-Reactive Protein Total Protein Albumin Prealbumin Triglycerides Cholesterol LDL Cholesterol Direct HDL Cholesterol 25-OH Vitamin D Total PTH Intact Urine pH Urine WBC (Auto) Urine Creatinine Urine Total Protein Fluid Total Protein Vancomycin Trough Rheumatoid Factor Complement C4 Miscellaneous Test Crossmatch See Detail 09/25/16 09/25/16 09/25/16 12:05 17:44 23:47 WBC RBC Hgb Hct MCV MCH MCHC RDW Plt Count Lymph % (Auto) [place] % (Auto) Lymph # [place] # Baso # Seg Neutrophils % Seg Neuts % (Manual) Lymphocytes % (Manual) Monocytes % (Manual) Eosinophils % (Manual) Basophils % (Manual) Nucleated RBC % Seg Neutrophils # Seg Neutrophils # Man Lymphocytes # (Manual) Monocytes # (Manual) Eosinophils # (Manual) Basophils # (Manual) PT INR Fibrinogen dRVVT Confirm Interp Factor V Activity POC ABG pH POC ABG pCO2 POC ABG pO2 ABG pO2 ABG HCO3 ABG Base Excess ABG Hemoglobin Oxyhemoglobin Sodium Potassium Chloride Carbon Dioxide BUN Creatinine Glucose POC Glucose 117 H 119 H 150 H Lactic Acid Calcium Ionized Calcium Phosphorus Magnesium Direct Bilirubin AST ALT Alkaline Phosphatase Lactate Dehydrogenase Troponin T C-Reactive Protein Total Protein Albumin Prealbumin Triglycerides Cholesterol LDL Cholesterol Direct HDL Cholesterol 25-OH Vitamin D Total PTH Intact Urine pH Urine WBC (Auto) Urine Creatinine Urine Total Protein Fluid Total Protein Vancomycin Trough Rheumatoid Factor Complement C4 Miscellaneous Test Crossmatch 09/26/16 09/26/16 09/26/16 04:25 04:25 04:25 WBC RBC 2.65 L Hgb 7.4 L Hct 21.6 L MCV MCH MCHC RDW 22.5 H Plt Count Lymph % (Auto) [place] % (Auto) Lymph # [place] # Baso # Seg Neutrophils % Seg Neuts % (Manual) Lymphocytes % (Manual) 6.0 L Monocytes % (Manual) Eosinophils % (Manual) 11.0 H Basophils % (Manual) Nucleated RBC % Seg Neutrophils # Seg Neutrophils # Man Lymphocytes # (Manual) 0.4 L Monocytes # (Manual) Eosinophils # (Manual) 0.6 H Basophils # (Manual) PT INR Fibrinogen dRVVT Confirm Interp Factor V Activity POC ABG pH POC ABG pCO2 POC ABG pO2 ABG pO2 ABG HCO3 ABG Base Excess ABG Hemoglobin Oxyhemoglobin Sodium Potassium Chloride 97.0 L Carbon Dioxide 19 L BUN 43 H Creatinine 2.6 H Glucose 130 H POC Glucose Lactic Acid 4.40 H* Calcium 6.7 L Ionized Calcium Phosphorus Magnesium Direct Bilirubin AST ALT Alkaline Phosphatase Lactate Dehydrogenase Troponin T C-Reactive Protein Total Protein Albumin Prealbumin Triglycerides Cholesterol LDL Cholesterol Direct HDL Cholesterol 25-OH Vitamin D Total PTH Intact Urine pH Urine WBC (Auto) Urine Creatinine Urine Total Protein Fluid Total Protein Vancomycin Trough Rheumatoid Factor Complement C4 Miscellaneous Test Crossmatch 09/26/16 09/26/16 09/26/16 05:20 11:44 12:12 WBC RBC Hgb Hct MCV MCH MCHC RDW Plt Count Lymph % (Auto) [place] % (Auto) Lymph # [place] # Baso # Seg Neutrophils % Seg Neuts % (Manual) Lymphocytes % (Manual) Monocytes % (Manual) Eosinophils % (Manual) Basophils % (Manual) Nucleated RBC % Seg Neutrophils # Seg Neutrophils # Man Lymphocytes # (Manual) Monocytes # (Manual) Eosinophils # (Manual) Basophils # (Manual) PT INR Fibrinogen dRVVT Confirm Interp Factor V Activity POC ABG pH POC ABG pCO2 27.0 L POC ABG pO2 69 L ABG pO2 ABG HCO3 ABG Base Excess ABG Hemoglobin Oxyhemoglobin Sodium Potassium Chloride Carbon Dioxide BUN Creatinine Glucose POC Glucose 121 H 128 H Lactic Acid Calcium Ionized Calcium Phosphorus Magnesium Direct Bilirubin AST ALT Alkaline Phosphatase Lactate Dehydrogenase Troponin T C-Reactive Protein Total Protein Albumin Prealbumin Triglycerides Cholesterol LDL Cholesterol Direct HDL Cholesterol 25-OH Vitamin D Total PTH Intact Urine pH Urine WBC (Auto) Urine Creatinine Urine Total Protein Fluid Total Protein Vancomycin Trough Rheumatoid Factor Complement C4 Miscellaneous Test Crossmatch [id number] 09/27/16 18:31 23:40 08:20 WBC RBC Hgb Hct MCV MCH MCHC RDW Plt Count Lymph % (Auto) [place] % (Auto) Lymph # [place] # Baso # Seg Neutrophils % Seg Neuts % (Manual) Lymphocytes % (Manual) Monocytes % (Manual) Eosinophils % (Manual) Basophils % (Manual) Nucleated RBC % Seg Neutrophils # Seg Neutrophils # Man Lymphocytes # (Manual) Monocytes # (Manual) Eosinophils # (Manual) Basophils # (Manual) PT INR Fibrinogen dRVVT Confirm Interp Factor V Activity POC ABG pH POC ABG pCO2 POC ABG pO2 ABG pO2 ABG HCO3 ABG Base Excess ABG Hemoglobin Oxyhemoglobin Sodium Potassium Chloride Carbon Dioxide BUN Creatinine Glucose POC Glucose 120 H 133 H Lactic Acid 4.10 H* Calcium Ionized Calcium Phosphorus Magnesium Direct Bilirubin AST ALT Alkaline Phosphatase Lactate Dehydrogenase Troponin T C-Reactive Protein Total Protein Albumin Prealbumin Triglycerides Cholesterol LDL Cholesterol Direct HDL Cholesterol 25-OH Vitamin D Total PTH Intact Urine pH Urine WBC (Auto) Urine Creatinine Urine Total Protein Fluid Total Protein Vancomycin Trough Rheumatoid Factor Complement C4 Miscellaneous Test Crossmatch 09/27/16 09/27/16 09/27/16 11:23 15:00 18:15 WBC RBC Hgb Hct MCV MCH MCHC RDW Plt Count Lymph % (Auto) [place] % (Auto) Lymph # [place] # Baso # Seg Neutrophils % Seg Neuts % (Manual) Lymphocytes % (Manual) Monocytes % (Manual) Eosinophils % (Manual) Basophils % (Manual) Nucleated RBC % Seg Neutrophils # Seg Neutrophils # Man Lymphocytes # (Manual) Monocytes # (Manual) Eosinophils # (Manual) Basophils # (Manual) PT INR Fibrinogen dRVVT Confirm Interp Factor V Activity POC ABG pH 7.459 H POC ABG pCO2 27.1 L POC ABG pO2 140 H ABG pO2 ABG HCO3 ABG Base Excess ABG Hemoglobin Oxyhemoglobin Sodium Potassium Chloride Carbon Dioxide BUN Creatinine Glucose POC Glucose 114 H 127 H Lactic Acid Calcium Ionized Calcium Phosphorus Magnesium Direct Bilirubin AST ALT Alkaline Phosphatase Lactate Dehydrogenase Troponin T C-Reactive Protein Total Protein Albumin Prealbumin Triglycerides Cholesterol LDL Cholesterol Direct HDL Cholesterol 25-OH Vitamin D Total PTH Intact Urine pH Urine WBC (Auto) Urine Creatinine Urine Total Protein Fluid Total Protein Vancomycin Trough Rheumatoid Factor Complement C4 Miscellaneous Test Crossmatch 09/27/16 09/27/16 09/28/16 Unknown Unknown 03:45 WBC RBC 2.49 L Hgb 6.8 L Hct 20.7 L MCV MCH 27 L MCHC RDW 22.1 H Plt Count Lymph % (Auto) [place] % (Auto) Lymph # [place] # Baso # Seg Neutrophils % Seg Neuts % (Manual) 32.0 L Lymphocytes % (Manual) 12.0 L Monocytes % (Manual) 11.0 H Eosinophils % (Manual) 10.0 H Basophils % (Manual) Nucleated RBC % Seg Neutrophils # Seg Neutrophils # Man Lymphocytes # (Manual) 1.0 L Monocytes # (Manual) 0.9 H Eosinophils # (Manual) 0.8 H Basophils # (Manual) PT INR Fibrinogen dRVVT Confirm Interp Factor V Activity POC ABG pH POC ABG pCO2 POC ABG pO2 ABG pO2 ABG HCO3 ABG Base Excess ABG Hemoglobin Oxyhemoglobin Sodium 135 L 135 L Potassium 3.5 L Chloride 93.6 L 94.4 L Carbon Dioxide 17 L 21 L BUN 45 H 28 H Creatinine 3.3 H 2.5 H Glucose 106 H POC Glucose Lactic Acid Calcium 7.3 L 7.1 L Ionized Calcium Phosphorus Magnesium Direct Bilirubin AST ALT Alkaline Phosphatase Lactate Dehydrogenase Troponin T C-Reactive Protein Total Protein Albumin Prealbumin Triglycerides Cholesterol LDL Cholesterol Direct HDL Cholesterol 25-OH Vitamin D Total PTH Intact Urine pH Urine WBC (Auto) Urine Creatinine Urine Total Protein Fluid Total Protein Vancomycin Trough Rheumatoid Factor Complement C4 Miscellaneous Test Crossmatch 09/28/16 09/28/16 09/28/16 03:45 07:25 11:58 WBC 13.3 H RBC 3.01 L Hgb 8.4 L Hct 25.0 L MCV MCH MCHC RDW 20.5 H Plt Count 128 L Lymph % (Auto) [place] % (Auto) Lymph # [place] # Baso # Seg Neutrophils % Seg Neuts % (Manual) Lymphocytes % (Manual) 7.0 L Monocytes % (Manual) Eosinophils % (Manual) 6.0 H Basophils % (Manual) Nucleated RBC % Seg Neutrophils # Seg Neutrophils # Man Lymphocytes # (Manual) 0.9 L Monocytes # (Manual) Eosinophils # (Manual) 0.8 H Basophils # (Manual) PT INR Fibrinogen dRVVT Confirm Interp Factor V Activity POC ABG pH POC ABG pCO2 POC ABG pO2 ABG pO2 ABG HCO3 ABG Base Excess ABG Hemoglobin Oxyhemoglobin Sodium Potassium Chloride Carbon Dioxide BUN Creatinine Glucose POC Glucose 121 H Lactic Acid 4.50 H* Calcium Ionized Calcium Phosphorus Magnesium Direct Bilirubin AST ALT Alkaline Phosphatase Lactate Dehydrogenase Troponin T C-Reactive Protein Total Protein Albumin Prealbumin Triglycerides Cholesterol LDL Cholesterol Direct HDL Cholesterol 25-OH Vitamin D Total PTH Intact Urine pH Urine WBC (Auto) Urine Creatinine Urine Total Protein Fluid Total Protein Vancomycin Trough Rheumatoid Factor Complement C4 Miscellaneous Test Crossmatch 09/29/16 09/29/16 09/29/16 06:45 06:45 06:45 WBC 14.9 H RBC 2.74 L Hgb 7.6 L Hct 23.2 L MCV MCH MCHC RDW 20.5 H Plt Count 81 L Lymph % (Auto) [place] % (Auto) Lymph # [place] # Baso # Seg Neutrophils % Seg Neuts % (Manual) 81.0 H Lymphocytes % (Manual) 4.0 L Monocytes % (Manual) Eosinophils % (Manual) Basophils % (Manual) Nucleated RBC % Seg Neutrophils # Seg Neutrophils # Man 12.1 H Lymphocytes # (Manual) 0.6 L Monocytes # (Manual) Eosinophils # (Manual) Basophils # (Manual) PT INR Fibrinogen dRVVT Confirm Interp Factor V Activity POC ABG pH POC ABG pCO2 POC ABG pO2 ABG pO2 ABG HCO3 ABG Base Excess ABG Hemoglobin Oxyhemoglobin Sodium 133 L Potassium 3.4 L Chloride 92.5 L Carbon Dioxide 21 L BUN 33 H Creatinine 3.0 H Glucose POC Glucose Lactic Acid Calcium 6.6 L Ionized Calcium Phosphorus Magnesium 1.40 L Direct Bilirubin 0.9 H AST ALT Alkaline Phosphatase Lactate Dehydrogenase Troponin T C-Reactive Protein Total Protein 4.3 L Albumin 1.3 L Prealbumin Triglycerides Cholesterol LDL Cholesterol Direct HDL Cholesterol 25-OH Vitamin D Total PTH Intact Urine pH Urine WBC (Auto) Urine Creatinine Urine Total Protein Fluid Total Protein Vancomycin Trough Rheumatoid Factor Complement C4 Miscellaneous Test Crossmatch 09/29/16 09/29/16 09/30/16 17:52 20:12 00:07 WBC RBC Hgb Hct MCV MCH MCHC RDW Plt Count Lymph % (Auto) [place] % (Auto) Lymph # [place] # Baso # Seg Neutrophils % Seg Neuts % (Manual) Lymphocytes % (Manual) Monocytes % (Manual) Eosinophils % (Manual) Basophils % (Manual) Nucleated RBC % Seg Neutrophils # Seg Neutrophils # Man Lymphocytes # (Manual) Monocytes # (Manual) Eosinophils # (Manual) Basophils # (Manual) PT INR Fibrinogen dRVVT Confirm Interp Factor V Activity POC ABG pH POC ABG pCO2 POC ABG pO2 ABG pO2 ABG HCO3 ABG Base Excess ABG Hemoglobin Oxyhemoglobin Sodium Potassium Chloride Carbon Dioxide BUN Creatinine Glucose POC Glucose 50 L 51 L Lactic Acid Calcium Ionized Calcium Phosphorus Magnesium Direct Bilirubin AST ALT Alkaline Phosphatase Lactate Dehydrogenase Troponin T 0.204 H* C-Reactive Protein Total Protein Albumin Prealbumin Triglycerides Cholesterol 31 L LDL Cholesterol Direct 4 L HDL Cholesterol 3 L 25-OH Vitamin D Total PTH Intact Urine pH Urine WBC (Auto) Urine Creatinine Urine Total Protein Fluid Total Protein Vancomycin Trough Rheumatoid Factor Complement C4 Miscellaneous Test Crossmatch 09/30/16 09/30/16 09/30/16 01:30 05:15 06:10 WBC RBC Hgb Hct MCV MCH MCHC RDW Plt Count Lymph % (Auto) [place] % (Auto) Lymph # [place] # Baso # Seg Neutrophils % Seg Neuts % (Manual) Lymphocytes % (Manual) Monocytes % (Manual) Eosinophils % (Manual) Basophils % (Manual) Nucleated RBC % Seg Neutrophils # Seg Neutrophils # Man Lymphocytes # (Manual) Monocytes # (Manual) Eosinophils # (Manual) Basophils # (Manual) PT INR Fibrinogen dRVVT Confirm Interp Factor V Activity POC ABG pH POC ABG pCO2 POC ABG pO2 ABG pO2 ABG HCO3 ABG Base Excess ABG Hemoglobin Oxyhemoglobin Sodium 133 L Potassium 3.2 L Chloride 93.2 L Carbon Dioxide 19 L BUN 36 H Creatinine 3.2 H Glucose 104 H POC Glucose 167 H 146 H Lactic Acid Calcium 6.4 L Ionized Calcium Phosphorus Magnesium 1.60 L Direct Bilirubin AST ALT Alkaline Phosphatase Lactate Dehydrogenase Troponin T C-Reactive Protein Total Protein Albumin Prealbumin Triglycerides Cholesterol LDL Cholesterol Direct HDL Cholesterol 25-OH Vitamin D Total PTH Intact Urine pH Urine WBC (Auto) Urine Creatinine Urine Total Protein Fluid Total Protein Vancomycin Trough Rheumatoid Factor Complement C4 Miscellaneous Test Crossmatch 09/30/16 09/30/16 09/30/16 11:26 13:39 18:38 WBC RBC Hgb Hct MCV MCH MCHC RDW Plt Count Lymph % (Auto) [place] % (Auto) Lymph # [place] # Baso # Seg Neutrophils % Seg Neuts % (Manual) Lymphocytes % (Manual) Monocytes % (Manual) Eosinophils % (Manual) Basophils % (Manual) Nucleated RBC % Seg Neutrophils # Seg Neutrophils # Man Lymphocytes # (Manual) Monocytes # (Manual) Eosinophils # (Manual) Basophils # (Manual) PT INR Fibrinogen dRVVT Confirm Interp Factor V Activity POC ABG pH 7.479 H POC ABG pCO2 29.8 L POC ABG pO2 117 H ABG pO2 ABG HCO3 ABG Base Excess ABG Hemoglobin Oxyhemoglobin Sodium Potassium Chloride Carbon Dioxide BUN Creatinine Glucose POC Glucose 140 H 122 H Lactic Acid Calcium Ionized Calcium Phosphorus Magnesium Direct Bilirubin AST ALT Alkaline Phosphatase Lactate Dehydrogenase Troponin T C-Reactive Protein Total Protein Albumin Prealbumin Triglycerides Cholesterol LDL Cholesterol Direct HDL Cholesterol 25-OH Vitamin D Total PTH Intact Urine pH Urine WBC (Auto) Urine Creatinine Urine Total Protein Fluid Total Protein Vancomycin Trough Rheumatoid Factor Complement C4 Miscellaneous Test Crossmatch 10/01/16 10/01/16 10/01/16 06:00 06:00 12:37 WBC 12.6 H RBC 2.75 L Hgb 7.3 L Hct 23.3 L MCV MCH 27 L MCHC RDW 20.6 H Plt Count 72 L Lymph % (Auto) [place] % (Auto) Lymph # [place] # Baso # Seg Neutrophils % Seg Neuts % (Manual) 31.0 L Lymphocytes % (Manual) 8.0 L Monocytes % (Manual) Eosinophils % (Manual) Basophils % (Manual) Nucleated RBC % 3.0 H Seg Neutrophils # Seg Neutrophils # Man Lymphocytes # (Manual) 1.0 L Monocytes # (Manual) Eosinophils # (Manual) Basophils # (Manual) PT INR Fibrinogen dRVVT Confirm Interp Factor V Activity POC ABG pH POC ABG pCO2 POC ABG pO2 ABG pO2 ABG HCO3 ABG Base Excess ABG Hemoglobin Oxyhemoglobin Sodium 127 L Potassium Chloride 86.8 L Carbon Dioxide 20 L BUN 42 H Creatinine 3.5 H Glucose POC Glucose 65 L Lactic Acid Calcium 7.0 L Ionized Calcium Phosphorus Magnesium Direct Bilirubin AST ALT Alkaline Phosphatase Lactate Dehydrogenase Troponin T C-Reactive Protein Total Protein Albumin Prealbumin Triglycerides Cholesterol LDL Cholesterol Direct HDL Cholesterol 25-OH Vitamin D Total PTH Intact Urine pH Urine WBC (Auto) Urine Creatinine Urine Total Protein Fluid Total Protein Vancomycin Trough Rheumatoid Factor Complement C4 Miscellaneous Test Crossmatch 10/01/16 10/01/16 10/02/16 17:39 23:32 00:59 WBC RBC Hgb Hct MCV MCH MCHC RDW Plt Count Lymph % (Auto) [place] % (Auto) Lymph # [place] # Baso # Seg Neutrophils % Seg Neuts % (Manual) Lymphocytes % (Manual) Monocytes % (Manual) Eosinophils % (Manual) Basophils % (Manual) Nucleated RBC % Seg Neutrophils # Seg Neutrophils # Man Lymphocytes # (Manual) Monocytes # (Manual) Eosinophils # (Manual) Basophils # (Manual) PT INR Fibrinogen dRVVT Confirm Interp Factor V Activity POC ABG pH POC ABG pCO2 POC ABG pO2 ABG pO2 ABG HCO3 ABG Base Excess ABG Hemoglobin Oxyhemoglobin Sodium Potassium Chloride Carbon Dioxide BUN Creatinine Glucose POC Glucose 107 H 52 L 145 H Lactic Acid Calcium Ionized Calcium Phosphorus Magnesium Direct Bilirubin AST ALT Alkaline Phosphatase Lactate Dehydrogenase Troponin T C-Reactive Protein Total Protein Albumin Prealbumin Triglycerides Cholesterol LDL Cholesterol Direct HDL Cholesterol 25-OH Vitamin D Total PTH Intact Urine pH Urine WBC (Auto) Urine Creatinine Urine Total Protein Fluid Total Protein Vancomycin Trough Rheumatoid Factor Complement C4 Miscellaneous Test Crossmatch 10/02/16 10/02/16 10/02/16 10:30 10:50 10:50 WBC 14.7 H RBC 2.76 L Hgb 7.4 L Hct 23.6 L MCV MCH 27 L MCHC RDW 20.2 H Plt Count 79 L Lymph % (Auto) [place] % (Auto) Lymph # [place] # Baso # Seg Neutrophils % Seg Neuts % (Manual) 86.0 H Lymphocytes % (Manual) 6.0 L Monocytes % (Manual) Eosinophils % (Manual) Basophils % (Manual) Nucleated RBC % Seg Neutrophils # Seg Neutrophils # Man 12.6 H Lymphocytes # (Manual) 0.9 L Monocytes # (Manual) Eosinophils # (Manual) Basophils # (Manual) PT INR Fibrinogen dRVVT Confirm Interp Factor V Activity POC ABG pH 7.486 H POC ABG pCO2 30.1 L POC ABG pO2 108 H ABG pO2 ABG HCO3 ABG Base Excess ABG Hemoglobin Oxyhemoglobin Sodium 131 L Potassium 3.4 L Chloride 89.9 L Carbon Dioxide BUN 26 H Creatinine 2.6 H Glucose POC Glucose Lactic Acid Calcium 7.0 L Ionized Calcium Phosphorus Magnesium Direct Bilirubin AST ALT Alkaline Phosphatase Lactate Dehydrogenase Troponin T C-Reactive Protein Total Protein Albumin Prealbumin Triglycerides Cholesterol LDL Cholesterol Direct HDL Cholesterol 25-OH Vitamin D Total PTH Intact Urine pH Urine WBC (Auto) Urine Creatinine Urine Total Protein Fluid Total Protein Vancomycin Trough Rheumatoid Factor Complement C4 Miscellaneous Test Crossmatch 10/02/16 10/03/16 10/03/16 23:45 00:45 05:10 WBC 12.9 H RBC 2.77 L Hgb 7.6 L Hct 23.7 L MCV MCH 27 L MCHC RDW 19.7 H Plt Count 89 L Lymph % (Auto) [place] % (Auto) Lymph # [place] # Baso # Seg Neutrophils % Seg Neuts % (Manual) Lymphocytes % (Manual) 8.0 L Monocytes % (Manual) Eosinophils % (Manual) Basophils % (Manual) Nucleated RBC % Seg Neutrophils # 11.9 H Seg Neutrophils # Man Lymphocytes # (Manual) 1.0 L Monocytes # (Manual) Eosinophils # (Manual) Basophils # (Manual) PT INR Fibrinogen dRVVT Confirm Interp Factor V Activity POC ABG pH POC ABG pCO2 POC ABG pO2 ABG pO2 ABG HCO3 ABG Base Excess ABG Hemoglobin Oxyhemoglobin Sodium Potassium Chloride Carbon Dioxide BUN Creatinine Glucose POC Glucose 55 L 199 H Lactic Acid Calcium Ionized Calcium Phosphorus Magnesium Direct Bilirubin AST ALT Alkaline Phosphatase Lactate Dehydrogenase Troponin T C-Reactive Protein Total Protein Albumin Prealbumin Triglycerides Cholesterol LDL Cholesterol Direct HDL Cholesterol 25-OH Vitamin D Total PTH Intact Urine pH Urine WBC (Auto) Urine Creatinine Urine Total Protein Fluid Total Protein Vancomycin Trough Rheumatoid Factor Complement C4 Miscellaneous Test Crossmatch 10/03/16 10/03/16 10/03/16 05:10 12:14 13:18 WBC RBC Hgb Hct MCV MCH MCHC RDW Plt Count Lymph % (Auto) [place] % (Auto) Lymph # [place] # Baso # Seg Neutrophils % Seg Neuts % (Manual) Lymphocytes % (Manual) Monocytes % (Manual) Eosinophils % (Manual) Basophils % (Manual) Nucleated RBC % Seg Neutrophils # Seg Neutrophils # Man Lymphocytes # (Manual) Monocytes # (Manual) Eosinophils # (Manual) Basophils # (Manual) PT INR Fibrinogen dRVVT Confirm Interp Factor V Activity POC ABG pH POC ABG pCO2 POC ABG pO2 ABG pO2 ABG HCO3 ABG Base Excess ABG Hemoglobin Oxyhemoglobin Sodium 129 L Potassium 3.3 L Chloride 88.8 L Carbon Dioxide 20 L BUN 29 H Creatinine 2.8 H Glucose POC Glucose 68 L 127 H Lactic Acid Calcium 7.2 L Ionized Calcium Phosphorus Magnesium Direct Bilirubin AST ALT Alkaline Phosphatase Lactate Dehydrogenase Troponin T C-Reactive Protein Total Protein Albumin Prealbumin Triglycerides Cholesterol LDL Cholesterol Direct HDL Cholesterol 25-OH Vitamin D Total PTH Intact Urine pH Urine WBC (Auto) Urine Creatinine Urine Total Protein Fluid Total Protein Vancomycin Trough Rheumatoid Factor Complement C4 Miscellaneous Test Crossmatch 10/03/16 10/03/16 10/03/16 14:42 18:21 19:09 WBC RBC Hgb Hct MCV MCH MCHC RDW Plt Count Lymph % (Auto) [place] % (Auto) Lymph # [place] # Baso # Seg Neutrophils % Seg Neuts % (Manual) Lymphocytes % (Manual) Monocytes % (Manual) Eosinophils % (Manual) Basophils % (Manual) Nucleated RBC % Seg Neutrophils # Seg Neutrophils # Man Lymphocytes # (Manual) Monocytes # (Manual) Eosinophils # (Manual) Basophils # (Manual) PT INR Fibrinogen dRVVT Confirm Interp Factor V Activity POC ABG pH 7.499 H POC ABG pCO2 28.4 L POC ABG pO2 44 L ABG pO2 ABG HCO3 ABG Base Excess ABG Hemoglobin Oxyhemoglobin Sodium Potassium Chloride Carbon Dioxide BUN Creatinine Glucose POC Glucose 64 L 205 H Lactic Acid Calcium Ionized Calcium Phosphorus Magnesium Direct Bilirubin AST ALT Alkaline Phosphatase Lactate Dehydrogenase Troponin T C-Reactive Protein Total Protein Albumin Prealbumin Triglycerides Cholesterol LDL Cholesterol Direct HDL Cholesterol 25-OH Vitamin D Total PTH Intact Urine pH Urine WBC (Auto) Urine Creatinine Urine Total Protein Fluid Total Protein Vancomycin Trough Rheumatoid Factor Complement C4 Miscellaneous Test Crossmatch 10/03/16 10/04/16 10/04/16 23:33 04:18 06:30 WBC RBC 2.54 L Hgb 7.1 L Hct 21.7 L MCV MCH MCHC RDW 19.5 H Plt Count 76 L Lymph % (Auto) [place] % (Auto) Lymph # [place] # Baso # Seg Neutrophils % Seg Neuts % (Manual) 88.0 H Lymphocytes % (Manual) 6.0 L Monocytes % (Manual) Eosinophils % (Manual) Basophils % (Manual) Nucleated RBC % Seg Neutrophils # Seg Neutrophils # Man 8.8 H Lymphocytes # (Manual) 0.6 L Monocytes # (Manual) Eosinophils # (Manual) Basophils # (Manual) PT INR Fibrinogen dRVVT Confirm Interp Factor V Activity POC ABG pH 7.461 H POC ABG pCO2 33.6 L POC ABG pO2 211 H ABG pO2 ABG HCO3 ABG Base Excess ABG Hemoglobin Oxyhemoglobin Sodium Potassium Chloride Carbon Dioxide BUN Creatinine Glucose POC Glucose 136 H Lactic Acid Calcium Ionized Calcium Phosphorus Magnesium Direct Bilirubin AST ALT Alkaline Phosphatase Lactate Dehydrogenase Troponin T C-Reactive Protein Total Protein Albumin Prealbumin Triglycerides Cholesterol LDL Cholesterol Direct HDL Cholesterol 25-OH Vitamin D Total PTH Intact Urine pH Urine WBC (Auto) Urine Creatinine Urine Total Protein Fluid Total Protein Vancomycin Trough Rheumatoid Factor Complement C4 Miscellaneous Test Crossmatch 10/04/16 10/04/16 10/04/16 06:30 11:45 17:54 WBC RBC Hgb Hct MCV MCH MCHC RDW Plt Count Lymph % (Auto) [place] % (Auto) Lymph # [place] # Baso # Seg Neutrophils % Seg Neuts % (Manual) Lymphocytes % (Manual) Monocytes % (Manual) Eosinophils % (Manual) Basophils % (Manual) Nucleated RBC % Seg Neutrophils # Seg Neutrophils # Man Lymphocytes # (Manual) Monocytes # (Manual) Eosinophils # (Manual) Basophils # (Manual) PT INR Fibrinogen dRVVT Confirm Interp Factor V Activity POC ABG pH POC ABG pCO2 POC ABG pO2 ABG pO2 ABG HCO3 ABG Base Excess ABG Hemoglobin Oxyhemoglobin Sodium 128 L Potassium Chloride 87.4 L Carbon Dioxide 20 L BUN 34 H Creatinine 2.9 H Glucose 127 H POC Glucose 158 H 160 H Lactic Acid Calcium 7.4 L Ionized Calcium Phosphorus Magnesium Direct Bilirubin AST ALT Alkaline Phosphatase Lactate Dehydrogenase Troponin T C-Reactive Protein Total Protein Albumin Prealbumin Triglycerides Cholesterol LDL Cholesterol Direct HDL Cholesterol 25-OH Vitamin D Total PTH Intact Urine pH Urine WBC (Auto) Urine Creatinine Urine Total Protein Fluid Total Protein Vancomycin Trough Rheumatoid Factor Complement C4 Miscellaneous Test Crossmatch 10/04/16 10/05/16 10/05/16 23:25 04:30 05:00 WBC RBC 2.64 L Hgb 7.5 L Hct 22.6 L MCV MCH MCHC RDW 19.3 H Plt Count 80 L Lymph % (Auto) [place] % (Auto) Lymph # [place] # Baso # Seg Neutrophils % Seg Neuts % (Manual) Lymphocytes % (Manual) 12.0 L Monocytes % (Manual) Eosinophils % (Manual) Basophils % (Manual) Nucleated RBC % Seg Neutrophils # Seg Neutrophils # Man Lymphocytes # (Manual) Monocytes # (Manual) Eosinophils # (Manual) Basophils # (Manual) PT INR Fibrinogen dRVVT Confirm Interp Factor V Activity POC ABG pH 7.475 H POC ABG pCO2 33.3 L POC ABG pO2 140 H ABG pO2 ABG HCO3 ABG Base Excess ABG Hemoglobin Oxyhemoglobin Sodium Potassium Chloride Carbon Dioxide BUN Creatinine Glucose POC Glucose 141 H Lactic Acid Calcium Ionized Calcium Phosphorus Magnesium Direct Bilirubin AST ALT Alkaline Phosphatase Lactate Dehydrogenase Troponin T C-Reactive Protein Total Protein Albumin Prealbumin Triglycerides Cholesterol LDL Cholesterol Direct HDL Cholesterol 25-OH Vitamin D Total PTH Intact Urine pH Urine WBC (Auto) Urine Creatinine Urine Total Protein Fluid Total Protein Vancomycin Trough Rheumatoid Factor Complement C4 Miscellaneous Test Crossmatch 10/05/16 10/05/16 10/05/16 05:00 05:09 12:58 WBC RBC Hgb Hct MCV MCH MCHC RDW Plt Count Lymph % (Auto) [place] % (Auto) Lymph # [place] # Baso # Seg Neutrophils % Seg Neuts % (Manual) Lymphocytes % (Manual) Monocytes % (Manual) Eosinophils % (Manual) Basophils % (Manual) Nucleated RBC % Seg Neutrophils # Seg Neutrophils # Man Lymphocytes # (Manual) Monocytes # (Manual) Eosinophils # (Manual) Basophils # (Manual) PT INR Fibrinogen dRVVT Confirm Interp Factor V Activity POC ABG pH POC ABG pCO2 POC ABG pO2 ABG pO2 ABG HCO3 ABG Base Excess ABG Hemoglobin Oxyhemoglobin Sodium 131 L Potassium Chloride 94.0 L Carbon Dioxide 20 L BUN 22 H Creatinine 2.0 H Glucose 123 H POC Glucose 166 H 179 H Lactic Acid Calcium 7.7 L Ionized Calcium Phosphorus 2.20 L D Magnesium Direct Bilirubin AST ALT Alkaline Phosphatase Lactate Dehydrogenase Troponin T C-Reactive Protein Total Protein Albumin Prealbumin Triglycerides Cholesterol LDL Cholesterol Direct HDL Cholesterol 25-OH Vitamin D Total PTH Intact Urine pH Urine WBC (Auto) Urine Creatinine Urine Total Protein Fluid Total Protein Vancomycin Trough Rheumatoid Factor Complement C4 Miscellaneous Test Crossmatch 10/05/16 10/05/16 10/05/16 15:50 18:53 23:12 WBC RBC Hgb Hct MCV MCH MCHC RDW Plt Count Lymph % (Auto) [place] % (Auto) Lymph # [place] # Baso # Seg Neutrophils % Seg Neuts % (Manual) Lymphocytes % (Manual) Monocytes % (Manual) Eosinophils % (Manual) Basophils % (Manual) Nucleated RBC % Seg Neutrophils # Seg Neutrophils # Man Lymphocytes # (Manual) Monocytes # (Manual) Eosinophils # (Manual) Basophils # (Manual) PT INR Fibrinogen dRVVT Confirm Interp Factor V Activity POC ABG pH POC ABG pCO2 POC ABG pO2 ABG pO2 ABG HCO3 ABG Base Excess ABG Hemoglobin Oxyhemoglobin Sodium Potassium Chloride Carbon Dioxide BUN Creatinine Glucose POC Glucose 150 H 164 H Lactic Acid Calcium Ionized Calcium Phosphorus Magnesium Direct Bilirubin AST ALT Alkaline Phosphatase Lactate Dehydrogenase Troponin T C-Reactive Protein Total Protein Albumin Prealbumin Triglycerides Cholesterol LDL Cholesterol Direct HDL Cholesterol 25-OH Vitamin D Total PTH Intact Urine pH Urine WBC (Auto) Urine Creatinine Urine Total Protein Fluid Total Protein Vancomycin Trough Rheumatoid Factor Complement C4 Miscellaneous Test Crossmatch See Detail 10/06/16 10/06/16 10/06/16 03:50 03:50 04:53 WBC RBC 3.00 L Hgb 8.6 L Hct 25.8 L MCV MCH MCHC RDW 17.9 H Plt Count 65 L Lymph % (Auto) [place] % (Auto) Lymph # [place] # Baso # Seg Neutrophils % Seg Neuts % (Manual) 30.0 L Lymphocytes % (Manual) 5.0 L Monocytes % (Manual) Eosinophils % (Manual) Basophils % (Manual) Nucleated RBC % Seg Neutrophils # Seg Neutrophils # Man Lymphocytes # (Manual) 0.4 L Monocytes # (Manual) Eosinophils # (Manual) Basophils # (Manual) PT INR Fibrinogen dRVVT Confirm Interp Factor V Activity POC ABG pH 7.310 L POC ABG pCO2 49.0 H POC ABG pO2 ABG pO2 ABG HCO3 ABG Base Excess ABG Hemoglobin Oxyhemoglobin Sodium 133 L Potassium Chloride 95.9 L Carbon Dioxide BUN 26 H Creatinine 2.0 H Glucose 116 H POC Glucose Lactic Acid Calcium 7.8 L Ionized Calcium Phosphorus Magnesium Direct Bilirubin AST ALT Alkaline Phosphatase Lactate Dehydrogenase Troponin T C-Reactive Protein Total Protein Albumin Prealbumin Triglycerides Cholesterol LDL Cholesterol Direct HDL Cholesterol 25-OH Vitamin D Total PTH Intact Urine pH Urine WBC (Auto) Urine Creatinine Urine Total Protein Fluid Total Protein Vancomycin Trough Rheumatoid Factor Complement C4 Miscellaneous Test Crossmatch 10/06/16 10/06/16 10/06/16 05:23 11:52 18:34 WBC RBC Hgb Hct MCV MCH MCHC RDW Plt Count Lymph % (Auto) [place] % (Auto) Lymph # [place] # Baso # Seg Neutrophils % Seg Neuts % (Manual) Lymphocytes % (Manual) Monocytes % (Manual) Eosinophils % (Manual) Basophils % (Manual) Nucleated RBC % Seg Neutrophils # Seg Neutrophils # Man Lymphocytes # (Manual) Monocytes # (Manual) Eosinophils # (Manual) Basophils # (Manual) PT INR Fibrinogen dRVVT Confirm Interp Factor V Activity POC ABG pH POC ABG pCO2 POC ABG pO2 ABG pO2 ABG HCO3 ABG Base Excess ABG Hemoglobin Oxyhemoglobin Sodium Potassium Chloride Carbon Dioxide BUN Creatinine Glucose POC Glucose 126 H 116 H 129 H Lactic Acid Calcium Ionized Calcium Phosphorus Magnesium Direct Bilirubin AST ALT Alkaline Phosphatase Lactate Dehydrogenase Troponin T C-Reactive Protein Total Protein Albumin Prealbumin Triglycerides Cholesterol LDL Cholesterol Direct HDL Cholesterol 25-OH Vitamin D Total PTH Intact Urine pH Urine WBC (Auto) Urine Creatinine Urine Total Protein Fluid Total Protein Vancomycin Trough Rheumatoid Factor Complement C4 Miscellaneous Test Crossmatch 10/07/16 10/07/16 10/07/16 03:45 05:00 10:00 WBC 17.0 H RBC 2.68 L Hgb 7.3 L Hct 25.3 L MCV MCH 27 L MCHC 29 L RDW 19.6 H Plt Count 74 L Lymph % (Auto) [place] % (Auto) Lymph # [place] # Baso # Seg Neutrophils % Seg Neuts % (Manual) Lymphocytes % (Manual) 12.0 L Monocytes % (Manual) Eosinophils % (Manual) Basophils % (Manual) Nucleated RBC % 4.0 H Seg Neutrophils # Seg Neutrophils # Man 10.7 H Lymphocytes # (Manual) Monocytes # (Manual) Eosinophils # (Manual) Basophils # (Manual) PT INR Fibrinogen dRVVT Confirm Interp Factor V Activity POC ABG pH POC ABG pCO2 POC ABG pO2 ABG pO2 ABG HCO3 ABG Base Excess ABG Hemoglobin Oxyhemoglobin Sodium 130 L Potassium 3.2 L Chloride 93.9 L Carbon Dioxide 20 L BUN 44 H Creatinine 2.7 H Glucose 129 H POC Glucose Lactic Acid Calcium 7.4 L Ionized Calcium Phosphorus Magnesium Direct Bilirubin AST ALT 6 L Alkaline Phosphatase 195 H Lactate Dehydrogenase Troponin T C-Reactive Protein Total Protein 4.9 L Albumin 1.0 L Prealbumin Triglycerides Cholesterol LDL Cholesterol Direct HDL Cholesterol 25-OH Vitamin D Total PTH Intact Urine pH Urine WBC (Auto) Urine Creatinine Urine Total Protein Fluid Total Protein Vancomycin Trough Rheumatoid Factor Complement C4 Miscellaneous Test Flexitest 1 H Crossmatch 10/07/16 10/07/16 10/07/16 10:00 11:24 18:10 WBC RBC Hgb Hct MCV MCH MCHC RDW Plt Count Lymph % (Auto) [place] % (Auto) Lymph # [place] # Baso # Seg Neutrophils % Seg Neuts % (Manual) Lymphocytes % (Manual) Monocytes % (Manual) Eosinophils % (Manual) Basophils % (Manual) Nucleated RBC % Seg Neutrophils # Seg Neutrophils # Man Lymphocytes # (Manual) Monocytes # (Manual) Eosinophils # (Manual) Basophils # (Manual) PT INR Fibrinogen dRVVT Confirm Interp Factor V Activity POC ABG pH POC ABG pCO2 POC ABG pO2 ABG pO2 ABG HCO3 ABG Base Excess ABG Hemoglobin Oxyhemoglobin Sodium Potassium Chloride Carbon Dioxide BUN Creatinine Glucose POC Glucose 116 H 130 H Lactic Acid Calcium Ionized Calcium Phosphorus Magnesium Direct Bilirubin AST ALT Alkaline Phosphatase Lactate Dehydrogenase Troponin T C-Reactive Protein 19.40 H Total Protein Albumin Prealbumin Triglycerides Cholesterol LDL Cholesterol Direct HDL Cholesterol 25-OH Vitamin D Total PTH Intact Urine pH Urine WBC (Auto) Urine Creatinine Urine Total Protein Fluid Total Protein Vancomycin Trough Rheumatoid Factor Complement C4 Miscellaneous Test Crossmatch 10/07/16 10/08/16 10/08/16 18:30 00:00 04:00 WBC RBC Hgb Hct MCV MCH MCHC RDW Plt Count Lymph % (Auto) [place] % (Auto) Lymph # [place] # Baso # Seg Neutrophils % Seg Neuts % (Manual) Lymphocytes % (Manual) Monocytes % (Manual) Eosinophils % (Manual) Basophils % (Manual) Nucleated RBC % Seg Neutrophils # Seg Neutrophils # Man Lymphocytes # (Manual) Monocytes # (Manual) Eosinophils # (Manual) Basophils # (Manual) PT INR Fibrinogen dRVVT Confirm Interp Factor V Activity POC ABG pH POC ABG pCO2 POC ABG pO2 ABG pO2 ABG HCO3 ABG Base Excess ABG Hemoglobin Oxyhemoglobin Sodium 132 L Potassium 3.3 L Chloride 93.6 L Carbon Dioxide 17 L BUN 59 H Creatinine 2.7 H Glucose 121 H POC Glucose 122 H Lactic Acid Calcium 7.6 L Ionized Calcium Phosphorus Magnesium Direct Bilirubin AST ALT Alkaline Phosphatase Lactate Dehydrogenase Troponin T C-Reactive Protein Total Protein Albumin Prealbumin Triglycerides Cholesterol LDL Cholesterol Direct HDL Cholesterol 25-OH Vitamin D Total PTH Intact Urine pH Urine WBC (Auto) > 182.0 H Urine Creatinine Urine Total Protein Fluid Total Protein Vancomycin Trough Rheumatoid Factor Complement C4 Miscellaneous Test Crossmatch 10/08/16 10/08/16 10/08/16 04:30 05:30 11:51 WBC RBC 5.15 H Hgb 14.4 H D Hct 44.5 H D MCV MCH MCHC RDW 19.5 H Plt Count 56 L Lymph % (Auto) [place] % (Auto) Lymph # [place] # Baso # Seg Neutrophils % Seg Neuts % (Manual) 24.0 L Lymphocytes % (Manual) 8.0 L Monocytes % (Manual) Eosinophils % (Manual) Basophils % (Manual) Nucleated RBC % 9.0 H Seg Neutrophils # Seg Neutrophils # Man Lymphocytes # (Manual) 0.7 L Monocytes # (Manual) Eosinophils # (Manual) Basophils # (Manual) PT INR Fibrinogen dRVVT Confirm Interp Factor V Activity POC ABG pH POC ABG pCO2 POC ABG pO2 ABG pO2 ABG HCO3 ABG Base Excess ABG Hemoglobin Oxyhemoglobin Sodium Potassium Chloride Carbon Dioxide BUN Creatinine Glucose POC Glucose 125 H 150 H Lactic Acid Calcium Ionized Calcium Phosphorus Magnesium Direct Bilirubin AST ALT Alkaline Phosphatase Lactate Dehydrogenase Troponin T C-Reactive Protein Total Protein Albumin Prealbumin Triglycerides Cholesterol LDL Cholesterol Direct HDL Cholesterol 25-OH Vitamin D Total PTH Intact Urine pH Urine WBC (Auto) Urine Creatinine Urine Total Protein Fluid Total Protein Vancomycin Trough Rheumatoid Factor Complement C4 Miscellaneous Test Crossmatch 10/08/16 10/08/16 10/08/16 12:49 17:07 19:30 WBC RBC Hgb 7.1 L D Hct 22.4 L D MCV MCH MCHC RDW Plt Count Lymph % (Auto) [place] % (Auto) Lymph # [place] # Baso # Seg Neutrophils % Seg Neuts % (Manual) Lymphocytes % (Manual) Monocytes % (Manual) Eosinophils % (Manual) Basophils % (Manual) Nucleated RBC % Seg Neutrophils # Seg Neutrophils # Man Lymphocytes # (Manual) Monocytes # (Manual) Eosinophils # (Manual) Basophils # (Manual) PT INR Fibrinogen dRVVT Confirm Interp Factor V Activity POC ABG pH POC ABG pCO2 28.2 L POC ABG pO2 111 H ABG pO2 ABG HCO3 ABG Base Excess ABG Hemoglobin Oxyhemoglobin Sodium Potassium Chloride Carbon Dioxide BUN Creatinine Glucose POC Glucose 145 H Lactic Acid Calcium Ionized Calcium Phosphorus Magnesium Direct Bilirubin AST ALT Alkaline Phosphatase Lactate Dehydrogenase Troponin T C-Reactive Protein Total Protein Albumin Prealbumin Triglycerides Cholesterol LDL Cholesterol Direct HDL Cholesterol 25-OH Vitamin D Total PTH Intact Urine pH Urine WBC (Auto) Urine Creatinine Urine Total Protein Fluid Total Protein Vancomycin Trough Rheumatoid Factor Complement C4 Miscellaneous Test Crossmatch 10/08/16 10/09/16 10/09/16 19:30 03:45 03:45 WBC 12.6 H RBC 2.36 L Hgb 6.7 L Hct 21.1 L MCV MCH MCHC RDW 19.5 H Plt Count 75 L Lymph % (Auto) [place] % (Auto) Lymph # [place] # Baso # Seg Neutrophils % Seg Neuts % (Manual) Lymphocytes % (Manual) Monocytes % (Manual) 10.0 H Eosinophils % (Manual) Basophils % (Manual) Nucleated RBC % 3.0 H Seg Neutrophils # Seg Neutrophils # Man Lymphocytes # (Manual) Monocytes # (Manual) 1.3 H Eosinophils # (Manual) Basophils # (Manual) PT 18.0 H INR 1.41 H Fibrinogen dRVVT Confirm Interp Factor V Activity POC ABG pH POC ABG pCO2 POC ABG pO2 ABG pO2 ABG HCO3 ABG Base Excess ABG Hemoglobin Oxyhemoglobin Sodium 135 L Potassium Chloride Carbon Dioxide 17 L BUN 81 H Creatinine 3.2 H Glucose 109 H POC Glucose Lactic Acid Calcium 7.4 L Ionized Calcium Phosphorus 4.60 H D Magnesium Direct Bilirubin AST ALT Alkaline Phosphatase Lactate Dehydrogenase Troponin T C-Reactive Protein Total Protein Albumin Prealbumin Triglycerides Cholesterol LDL Cholesterol Direct HDL Cholesterol 25-OH Vitamin D Total PTH Intact Urine pH Urine WBC (Auto) Urine Creatinine Urine Total Protein Fluid Total Protein Vancomycin Trough Rheumatoid Factor Complement C4 Miscellaneous Test Crossmatch 10/09/16 10/09/16 10/09/16 03:45 05:14 07:20 WBC RBC Hgb Hct MCV MCH MCHC RDW Plt Count Lymph % (Auto) [place] % (Auto) Lymph # [place] # Baso # Seg Neutrophils % Seg Neuts % (Manual) Lymphocytes % (Manual) Monocytes % (Manual) Eosinophils % (Manual) Basophils % (Manual) Nucleated RBC % Seg Neutrophils # Seg Neutrophils # Man Lymphocytes # (Manual) Monocytes # (Manual) Eosinophils # (Manual) Basophils # (Manual) PT 19.0 H INR 1.51 H Fibrinogen dRVVT Confirm Interp Factor V Activity POC ABG pH POC ABG pCO2 POC ABG pO2 ABG pO2 ABG HCO3 ABG Base Excess ABG Hemoglobin Oxyhemoglobin Sodium Potassium Chloride Carbon Dioxide BUN Creatinine Glucose POC Glucose 151 H Lactic Acid Calcium Ionized Calcium Phosphorus Magnesium Direct Bilirubin AST ALT Alkaline Phosphatase Lactate Dehydrogenase Troponin T C-Reactive Protein Total Protein Albumin Prealbumin Triglycerides Cholesterol LDL Cholesterol Direct HDL Cholesterol 25-OH Vitamin D Total PTH Intact Urine pH Urine WBC (Auto) Urine Creatinine Urine Total Protein Fluid Total Protein Vancomycin Trough Rheumatoid Factor Complement C4 Miscellaneous Test Crossmatch See Detail 10/09/16 10/09/16 10/09/16 11:46 16:20 16:43 WBC RBC Hgb 7.2 L Hct 22.2 L MCV MCH MCHC RDW Plt Count Lymph % (Auto) [place] % (Auto) Lymph # [place] # Baso # Seg Neutrophils % Seg Neuts % (Manual) Lymphocytes % (Manual) Monocytes % (Manual) Eosinophils % (Manual) Basophils % (Manual) Nucleated RBC % Seg Neutrophils # Seg Neutrophils # Man Lymphocytes # (Manual) Monocytes # (Manual) Eosinophils # (Manual) Basophils # (Manual) PT INR Fibrinogen dRVVT Confirm Interp Factor V Activity POC ABG pH POC ABG pCO2 POC ABG pO2 ABG pO2 ABG HCO3 ABG Base Excess ABG Hemoglobin Oxyhemoglobin Sodium Potassium Chloride Carbon Dioxide BUN Creatinine Glucose POC Glucose 133 H 141 H Lactic Acid Calcium Ionized Calcium Phosphorus Magnesium Direct Bilirubin AST ALT Alkaline Phosphatase Lactate Dehydrogenase Troponin T C-Reactive Protein Total Protein Albumin Prealbumin Triglycerides Cholesterol LDL Cholesterol Direct HDL Cholesterol 25-OH Vitamin D Total PTH Intact Urine pH Urine WBC (Auto) Urine Creatinine Urine Total Protein Fluid Total Protein Vancomycin Trough Rheumatoid Factor Complement C4 Miscellaneous Test Crossmatch 10/10/16 10/10/16 10/10/16 05:00 05:00 11:19 WBC 18.5 H RBC 2.19 L Hgb 6.4 L Hct 19.6 L* MCV MCH MCHC RDW 19.3 H Plt Count 93 L Lymph % (Auto) [place] % (Auto) Lymph # [place] # Baso # Seg Neutrophils % Seg Neuts % (Manual) Lymphocytes % (Manual) 10.0 L Monocytes % (Manual) Eosinophils % (Manual) Basophils % (Manual) Nucleated RBC % 4.0 H Seg Neutrophils # Seg Neutrophils # Man 11.3 H Lymphocytes # (Manual) Monocytes # (Manual) Eosinophils # (Manual) Basophils # (Manual) PT INR Fibrinogen dRVVT Confirm Interp Factor V Activity POC ABG pH POC ABG pCO2 POC ABG pO2 ABG pO2 ABG HCO3 ABG Base Excess ABG Hemoglobin Oxyhemoglobin Sodium Potassium 5.7 H D Chloride Carbon Dioxide 16 L BUN 94 H Creatinine 3.1 H Glucose 131 H POC Glucose 153 H Lactic Acid Calcium 8.2 L Ionized Calcium Phosphorus 5.10 H Magnesium 2.40 H Direct Bilirubin 0.3 H AST ALT < 5 L Alkaline Phosphatase 319 H Lactate Dehydrogenase Troponin T C-Reactive Protein Total Protein 5.1 L Albumin 1.0 L Prealbumin Triglycerides Cholesterol LDL Cholesterol Direct HDL Cholesterol 25-OH Vitamin D Total PTH Intact Urine pH Urine WBC (Auto) Urine Creatinine Urine Total Protein Fluid Total Protein Vancomycin Trough Rheumatoid Factor Complement C4 Miscellaneous Test Crossmatch 10/10/16 10/10/16 10/11/16 17:50 23:30 04:15 WBC RBC Hgb Hct MCV MCH MCHC RDW Plt Count Lymph % (Auto) [place] % (Auto) Lymph # [place] # Baso # Seg Neutrophils % Seg Neuts % (Manual) Lymphocytes % (Manual) Monocytes % (Manual) Eosinophils % (Manual) Basophils % (Manual) Nucleated RBC % Seg Neutrophils # Seg Neutrophils # Man Lymphocytes # (Manual) Monocytes # (Manual) Eosinophils # (Manual) Basophils # (Manual) PT INR Fibrinogen dRVVT Confirm Interp Factor V Activity POC ABG pH POC ABG pCO2 POC ABG pO2 ABG pO2 ABG HCO3 ABG Base Excess ABG Hemoglobin Oxyhemoglobin Sodium Potassium Chloride 96.4 L Carbon Dioxide 21 L BUN 57 H Creatinine 2.1 H Glucose 151 H POC Glucose 146 H 141 H Lactic Acid Calcium 8.3 L Ionized Calcium Phosphorus Magnesium Direct Bilirubin AST ALT Alkaline Phosphatase Lactate Dehydrogenase Troponin T C-Reactive Protein Total Protein Albumin Prealbumin Triglycerides Cholesterol LDL Cholesterol Direct HDL Cholesterol 25-OH Vitamin D Total PTH Intact Urine pH Urine WBC (Auto) Urine Creatinine Urine Total Protein Fluid Total Protein Vancomycin Trough Rheumatoid Factor Complement C4 Miscellaneous Test Crossmatch 10/11/16 10/11/16 10/11/16 04:15 04:15 05:30 WBC 28.3 H RBC 3.12 L Hgb 9.3 L Hct 28.7 L D MCV MCH MCHC RDW 17.7 H Plt Count 128 L Lymph % (Auto) [place] % (Auto) Lymph # [place] # Baso # Seg Neutrophils % Seg Neuts % (Manual) Lymphocytes % (Manual) Monocytes % (Manual) Eosinophils % (Manual) Basophils % (Manual) Nucleated RBC % Seg Neutrophils # Seg Neutrophils # Man Lymphocytes # (Manual) Monocytes # (Manual) Eosinophils # (Manual) Basophils # (Manual) PT INR Fibrinogen dRVVT Confirm Interp Factor V Activity POC ABG pH POC ABG pCO2 POC ABG pO2 ABG pO2 ABG HCO3 ABG Base Excess ABG Hemoglobin Oxyhemoglobin Sodium Potassium Chloride Carbon Dioxide BUN Creatinine Glucose POC Glucose 167 H Lactic Acid Calcium Ionized Calcium Phosphorus Magnesium Direct Bilirubin AST ALT Alkaline Phosphatase Lactate Dehydrogenase Troponin T C-Reactive Protein 15.80 H Total Protein Albumin Prealbumin Triglycerides Cholesterol LDL Cholesterol Direct HDL Cholesterol 25-OH Vitamin D Total PTH Intact Urine pH Urine WBC (Auto) Urine Creatinine Urine Total Protein Fluid Total Protein Vancomycin Trough Rheumatoid Factor Complement C4 Miscellaneous Test Crossmatch 10/11/16 10/11/16 10/11/16 11:40 15:49 23:57 WBC RBC Hgb Hct MCV MCH MCHC RDW Plt Count Lymph % (Auto) [place] % (Auto) Lymph # [place] # Baso # Seg Neutrophils % Seg Neuts % (Manual) Lymphocytes % (Manual) Monocytes % (Manual) Eosinophils % (Manual) Basophils % (Manual) Nucleated RBC % Seg Neutrophils # Seg Neutrophils # Man Lymphocytes # (Manual) Monocytes # (Manual) Eosinophils # (Manual) Basophils # (Manual) PT INR Fibrinogen dRVVT Confirm Interp Factor V Activity POC ABG pH POC ABG pCO2 POC ABG pO2 ABG pO2 ABG HCO3 ABG Base Excess ABG Hemoglobin Oxyhemoglobin Sodium Potassium Chloride Carbon Dioxide BUN Creatinine Glucose POC Glucose 139 H 168 H 161 H Lactic Acid Calcium Ionized Calcium Phosphorus Magnesium Direct Bilirubin AST ALT Alkaline Phosphatase Lactate Dehydrogenase Troponin T C-Reactive Protein Total Protein Albumin Prealbumin Triglycerides Cholesterol LDL Cholesterol Direct HDL Cholesterol 25-OH Vitamin D Total PTH Intact Urine pH Urine WBC (Auto) Urine Creatinine Urine Total Protein Fluid Total Protein Vancomycin Trough Rheumatoid Factor Complement C4 Miscellaneous Test Crossmatch 10/12/16 10/12/16 10/12/16 04:40 04:40 05:44 WBC 22.5 H RBC 2.88 L Hgb 8.8 L Hct 26.8 L MCV MCH MCHC RDW 17.8 H Plt Count Lymph % (Auto) [place] % (Auto) Lymph # [place] # Baso # Seg Neutrophils % Seg Neuts % (Manual) Lymphocytes % (Manual) Monocytes % (Manual) Eosinophils % (Manual) Basophils % (Manual) Nucleated RBC % Seg Neutrophils # Seg Neutrophils # Man Lymphocytes # (Manual) Monocytes # (Manual) Eosinophils # (Manual) Basophils # (Manual) PT INR Fibrinogen dRVVT Confirm Interp Factor V Activity POC ABG pH POC ABG pCO2 POC ABG pO2 ABG pO2 ABG HCO3 ABG Base Excess ABG Hemoglobin Oxyhemoglobin Sodium 134 L Potassium Chloride 93.0 L Carbon Dioxide BUN 74 H Creatinine 2.5 H Glucose 137 H POC Glucose 158 H Lactic Acid Calcium 8.2 L Ionized Calcium Phosphorus Magnesium Direct Bilirubin AST ALT Alkaline Phosphatase Lactate Dehydrogenase Troponin T C-Reactive Protein Total Protein Albumin Prealbumin Triglycerides Cholesterol LDL Cholesterol Direct HDL Cholesterol 25-OH Vitamin D Total PTH Intact Urine pH Urine WBC (Auto) Urine Creatinine Urine Total Protein Fluid Total Protein Vancomycin Trough Rheumatoid Factor Complement C4 Miscellaneous Test Crossmatch 10/12/16 10/12/16 10/12/16 12:27 18:18 23:46 WBC RBC Hgb Hct MCV MCH MCHC RDW Plt Count Lymph % (Auto) [place] % (Auto) Lymph # [place] # Baso # Seg Neutrophils % Seg Neuts % (Manual) Lymphocytes % (Manual) Monocytes % (Manual) Eosinophils % (Manual) Basophils % (Manual) Nucleated RBC % Seg Neutrophils # Seg Neutrophils # Man Lymphocytes # (Manual) Monocytes # (Manual) Eosinophils # (Manual) Basophils # (Manual) PT INR Fibrinogen dRVVT Confirm Interp Factor V Activity POC ABG pH POC ABG pCO2 POC ABG pO2 ABG pO2 ABG HCO3 ABG Base Excess ABG Hemoglobin Oxyhemoglobin Sodium Potassium Chloride Carbon Dioxide BUN Creatinine Glucose POC Glucose 153 H 140 H 150 H Lactic Acid Calcium Ionized Calcium Phosphorus Magnesium Direct Bilirubin AST ALT Alkaline Phosphatase Lactate Dehydrogenase Troponin T C-Reactive Protein Total Protein Albumin Prealbumin Triglycerides Cholesterol LDL Cholesterol Direct HDL Cholesterol 25-OH Vitamin D Total PTH Intact Urine pH Urine WBC (Auto) Urine Creatinine Urine Total Protein Fluid Total Protein Vancomycin Trough Rheumatoid Factor Complement C4 Miscellaneous Test Crossmatch 10/13/16 10/13/16 10/13/16 06:22 09:20 12:29 WBC RBC Hgb Hct MCV MCH MCHC RDW Plt Count Lymph % (Auto) [place] % (Auto) Lymph # [place] # Baso # Seg Neutrophils % Seg Neuts % (Manual) Lymphocytes % (Manual) Monocytes % (Manual) Eosinophils % (Manual) Basophils % (Manual) Nucleated RBC % Seg Neutrophils # Seg Neutrophils # Man Lymphocytes # (Manual) Monocytes # (Manual) Eosinophils # (Manual) Basophils # (Manual) PT INR Fibrinogen dRVVT Confirm Interp Factor V Activity POC ABG pH POC ABG pCO2 POC ABG pO2 ABG pO2 ABG HCO3 ABG Base Excess ABG Hemoglobin Oxyhemoglobin Sodium Potassium Chloride Carbon Dioxide BUN Creatinine Glucose POC Glucose 165 H 193 H Lactic Acid Calcium Ionized Calcium Phosphorus Magnesium Direct Bilirubin AST ALT Alkaline Phosphatase Lactate Dehydrogenase Troponin T C-Reactive Protein Total Protein Albumin Prealbumin Triglycerides Cholesterol LDL Cholesterol Direct HDL Cholesterol 25-OH Vitamin D Total PTH Intact Urine pH Urine WBC (Auto) Urine Creatinine Urine Total Protein Fluid Total Protein Vancomycin Trough Rheumatoid Factor Complement C4 Miscellaneous Test Flexitest 1 H Crossmatch 10/13/16 10/13/16 10/13/16 18:09 Unknown Unknown WBC 23.4 H RBC 2.83 L Hgb 8.7 L Hct 26.1 L MCV MCH MCHC RDW 18.1 H Plt Count Lymph % (Auto) [place] % (Auto) Lymph # [place] # Baso # Seg Neutrophils % Seg Neuts % (Manual) Lymphocytes % (Manual) Monocytes % (Manual) Eosinophils % (Manual) Basophils % (Manual) Nucleated RBC % Seg Neutrophils # Seg Neutrophils # Man Lymphocytes # (Manual) Monocytes # (Manual) Eosinophils # (Manual) Basophils # (Manual) PT INR Fibrinogen dRVVT Confirm Interp Factor V Activity POC ABG pH POC ABG pCO2 POC ABG pO2 ABG pO2 ABG HCO3 ABG Base Excess ABG Hemoglobin Oxyhemoglobin Sodium Potassium Chloride 95.8 L Carbon Dioxide BUN 82 H Creatinine 2.6 H Glucose 152 H POC Glucose 166 H Lactic Acid Calcium Ionized Calcium Phosphorus Magnesium Direct Bilirubin AST ALT Alkaline Phosphatase Lactate Dehydrogenase Troponin T C-Reactive Protein Total Protein Albumin Prealbumin Triglycerides Cholesterol LDL Cholesterol Direct HDL Cholesterol 25-OH Vitamin D Total PTH Intact Urine pH Urine WBC (Auto) Urine Creatinine Urine Total Protein Fluid Total Protein Vancomycin Trough Rheumatoid Factor Complement C4 Miscellaneous Test Crossmatch 10/14/16 10/14/16 10/14/16 05:38 06:35 08:10 WBC 20.7 H RBC 2.81 L Hgb 8.4 L Hct 27.2 L MCV MCH MCHC RDW 19.4 H Plt Count Lymph % (Auto) [place] % (Auto) Lymph # [place] # Baso # Seg Neutrophils % Seg Neuts % (Manual) Lymphocytes % (Manual) Monocytes % (Manual) Eosinophils % (Manual) Basophils % (Manual) Nucleated RBC % Seg Neutrophils # Seg Neutrophils # Man Lymphocytes # (Manual) Monocytes # (Manual) Eosinophils # (Manual) Basophils # (Manual) PT INR Fibrinogen dRVVT Confirm Interp Factor V Activity POC ABG pH POC ABG pCO2 POC ABG pO2 ABG pO2 ABG HCO3 ABG Base Excess ABG Hemoglobin Oxyhemoglobin Sodium Potassium Chloride Carbon Dioxide BUN 58 H Creatinine 1.9 H Glucose 169 H POC Glucose 195 H Lactic Acid Calcium Ionized Calcium Phosphorus Magnesium Direct Bilirubin AST ALT Alkaline Phosphatase Lactate Dehydrogenase Troponin T C-Reactive Protein Total Protein Albumin Prealbumin Triglycerides Cholesterol LDL Cholesterol Direct HDL Cholesterol 25-OH Vitamin D Total PTH Intact Urine pH Urine WBC (Auto) Urine Creatinine Urine Total Protein Fluid Total Protein Vancomycin Trough Rheumatoid Factor Complement C4 Miscellaneous Test Crossmatch 10/14/16 10/14/16 10/14/16 11:44 17:13 23:28 WBC RBC Hgb Hct MCV MCH MCHC RDW Plt Count Lymph % (Auto) [place] % (Auto) Lymph # [place] # Baso # Seg Neutrophils % Seg Neuts % (Manual) Lymphocytes % (Manual) Monocytes % (Manual) Eosinophils % (Manual) Basophils % (Manual) Nucleated RBC % Seg Neutrophils # Seg Neutrophils # Man Lymphocytes # (Manual) Monocytes # (Manual) Eosinophils # (Manual) Basophils # (Manual) PT INR Fibrinogen dRVVT Confirm Interp Factor V Activity POC ABG pH POC ABG pCO2 POC ABG pO2 ABG pO2 ABG HCO3 ABG Base Excess ABG Hemoglobin Oxyhemoglobin Sodium Potassium Chloride Carbon Dioxide BUN Creatinine Glucose POC Glucose 174 H 121 H 151 H Lactic Acid Calcium Ionized Calcium Phosphorus Magnesium Direct Bilirubin AST ALT Alkaline Phosphatase Lactate Dehydrogenase Troponin T C-Reactive Protein Total Protein Albumin Prealbumin Triglycerides Cholesterol LDL Cholesterol Direct HDL Cholesterol 25-OH Vitamin D Total PTH Intact Urine pH Urine WBC (Auto) Urine Creatinine Urine Total Protein Fluid Total Protein Vancomycin Trough Rheumatoid Factor Complement C4 Miscellaneous Test Crossmatch 10/15/16 10/15/16 10/15/16 05:06 12:26 17:48 WBC RBC Hgb Hct MCV MCH MCHC RDW Plt Count Lymph % (Auto) [place] % (Auto) Lymph # [place] # Baso # Seg Neutrophils % Seg Neuts % (Manual) Lymphocytes % (Manual) Monocytes % (Manual) Eosinophils % (Manual) Basophils % (Manual) Nucleated RBC % Seg Neutrophils # Seg Neutrophils # Man Lymphocytes # (Manual) Monocytes # (Manual) Eosinophils # (Manual) Basophils # (Manual) PT INR Fibrinogen dRVVT Confirm Interp Factor V Activity POC ABG pH POC ABG pCO2 POC ABG pO2 ABG pO2 ABG HCO3 ABG Base Excess ABG Hemoglobin Oxyhemoglobin Sodium Potassium Chloride Carbon Dioxide BUN Creatinine Glucose POC Glucose 151 H 149 H 153 H Lactic Acid Calcium Ionized Calcium Phosphorus Magnesium Direct Bilirubin AST ALT Alkaline Phosphatase Lactate Dehydrogenase Troponin T C-Reactive Protein Total Protein Albumin Prealbumin Triglycerides Cholesterol LDL Cholesterol Direct HDL Cholesterol 25-OH Vitamin D Total PTH Intact Urine pH Urine WBC (Auto) Urine Creatinine Urine Total Protein Fluid Total Protein Vancomycin Trough Rheumatoid Factor Complement C4 Miscellaneous Test Crossmatch 10/15/16 10/15/16 10/16/16 Unknown Unknown 00:02 WBC 23.4 H RBC 2.78 L Hgb 8.5 L Hct 25.7 L MCV MCH MCHC RDW 18.7 H Plt Count Lymph % (Auto) [place] % (Auto) Lymph # [place] # Baso # Seg Neutrophils % Seg Neuts % (Manual) Lymphocytes % (Manual) Monocytes % (Manual) Eosinophils % (Manual) Basophils % (Manual) Nucleated RBC % Seg Neutrophils # Seg Neutrophils # Man Lymphocytes # (Manual) Monocytes # (Manual) Eosinophils # (Manual) Basophils # (Manual) PT INR Fibrinogen dRVVT Confirm Interp Factor V Activity POC ABG pH POC ABG pCO2 POC ABG pO2 ABG pO2 ABG HCO3 ABG Base Excess ABG Hemoglobin Oxyhemoglobin Sodium Potassium Chloride Carbon Dioxide BUN 73 H Creatinine 2.3 H Glucose 120 H POC Glucose 137 H Lactic Acid Calcium Ionized Calcium Phosphorus Magnesium Direct Bilirubin AST ALT Alkaline Phosphatase Lactate Dehydrogenase Troponin T C-Reactive Protein Total Protein Albumin Prealbumin Triglycerides Cholesterol LDL Cholesterol Direct HDL Cholesterol 25-OH Vitamin D Total PTH Intact Urine pH Urine WBC (Auto) Urine Creatinine Urine Total Protein Fluid Total Protein Vancomycin Trough Rheumatoid Factor Complement C4 Miscellaneous Test Crossmatch 10/16/16 10/16/16 10/16/16 05:44 06:25 06:25 WBC 22.5 H RBC 2.76 L Hgb 8.3 L Hct 25.2 L MCV MCH MCHC RDW 18.3 H Plt Count Lymph % (Auto) [place] % (Auto) Lymph # [place] # Baso # Seg Neutrophils % Seg Neuts % (Manual) Lymphocytes % (Manual) Monocytes % (Manual) Eosinophils % (Manual) Basophils % (Manual) Nucleated RBC % Seg Neutrophils # Seg Neutrophils # Man Lymphocytes # (Manual) Monocytes # (Manual) Eosinophils # (Manual) Basophils # (Manual) PT INR Fibrinogen dRVVT Confirm Interp Factor V Activity POC ABG pH POC ABG pCO2 POC ABG pO2 ABG pO2 ABG HCO3 ABG Base Excess ABG Hemoglobin Oxyhemoglobin Sodium Potassium Chloride Carbon Dioxide BUN 92 H Creatinine 3.0 H Glucose 138 H POC Glucose 110 H Lactic Acid Calcium Ionized Calcium Phosphorus Magnesium Direct Bilirubin AST ALT Alkaline Phosphatase Lactate Dehydrogenase Troponin T C-Reactive Protein Total Protein Albumin Prealbumin Triglycerides Cholesterol LDL Cholesterol Direct HDL Cholesterol 25-OH Vitamin D Total PTH Intact Urine pH Urine WBC (Auto) Urine Creatinine Urine Total Protein Fluid Total Protein Vancomycin Trough Rheumatoid Factor Complement C4 Miscellaneous Test Crossmatch 10/16/16 10/16/16 10/16/16 11:27 11:48 17:36 WBC RBC Hgb Hct MCV MCH MCHC RDW Plt Count Lymph % (Auto) [place] % (Auto) Lymph # [place] # Baso # Seg Neutrophils % Seg Neuts % (Manual) Lymphocytes % (Manual) Monocytes % (Manual) Eosinophils % (Manual) Basophils % (Manual) Nucleated RBC % Seg Neutrophils # Seg Neutrophils # Man Lymphocytes # (Manual) Monocytes # (Manual) Eosinophils # (Manual) Basophils # (Manual) PT INR Fibrinogen dRVVT Confirm Interp Factor V Activity POC ABG pH 7.582 H POC ABG pCO2 27.4 L POC ABG pO2 110 H ABG pO2 ABG HCO3 ABG Base Excess ABG Hemoglobin Oxyhemoglobin Sodium Potassium Chloride Carbon Dioxide BUN Creatinine Glucose POC Glucose 121 H 133 H Lactic Acid Calcium Ionized Calcium Phosphorus Magnesium Direct Bilirubin AST ALT Alkaline Phosphatase Lactate Dehydrogenase Troponin T C-Reactive Protein Total Protein Albumin Prealbumin Triglycerides Cholesterol LDL Cholesterol Direct HDL Cholesterol 25-OH Vitamin D Total PTH Intact Urine pH Urine WBC (Auto) Urine Creatinine Urine Total Protein Fluid Total Protein Vancomycin Trough Rheumatoid Factor Complement C4 Miscellaneous Test Crossmatch 10/16/16 10/17/16 10/17/16 20:48 04:24 04:24 WBC 21.4 H RBC 2.72 L Hgb 8.0 L Hct 25.2 L MCV MCH MCHC RDW 18.0 H Plt Count Lymph % (Auto) [place] % (Auto) Lymph # [place] # Baso # Seg Neutrophils % Seg Neuts % (Manual) Lymphocytes % (Manual) Monocytes % (Manual) Eosinophils % (Manual) Basophils % (Manual) Nucleated RBC % Seg Neutrophils # Seg Neutrophils # Man Lymphocytes # (Manual) Monocytes # (Manual) Eosinophils # (Manual) Basophils # (Manual) PT INR Fibrinogen dRVVT Confirm Interp Factor V Activity POC ABG pH 7.561 H POC ABG pCO2 24.4 L POC ABG pO2 77 L ABG pO2 ABG HCO3 ABG Base Excess ABG Hemoglobin Oxyhemoglobin Sodium 148 H Potassium Chloride Carbon Dioxide BUN 104 H Creatinine 3.0 H Glucose 149 H POC Glucose Lactic Acid Calcium Ionized Calcium Phosphorus Magnesium Direct Bilirubin AST ALT Alkaline Phosphatase 138 H Lactate Dehydrogenase Troponin T C-Reactive Protein Total Protein 6.2 L Albumin 1.5 L Prealbumin Triglycerides Cholesterol LDL Cholesterol Direct HDL Cholesterol 25-OH Vitamin D Total PTH Intact Urine pH Urine WBC (Auto) Urine Creatinine Urine Total Protein Fluid Total Protein Vancomycin Trough Rheumatoid Factor Complement C4 Miscellaneous Test Crossmatch 10/17/16 10/17/16 10/17/16 06:02 12:17 17:14 WBC RBC Hgb Hct MCV MCH MCHC RDW Plt Count Lymph % (Auto) [place] % (Auto) Lymph # [place] # Baso # Seg Neutrophils % Seg Neuts % (Manual) Lymphocytes % (Manual) Monocytes % (Manual) Eosinophils % (Manual) Basophils % (Manual) Nucleated RBC % Seg Neutrophils # Seg Neutrophils # Man Lymphocytes # (Manual) Monocytes # (Manual) Eosinophils # (Manual) Basophils # (Manual) PT INR Fibrinogen dRVVT Confirm Interp Factor V Activity POC ABG pH POC ABG pCO2 POC ABG pO2 ABG pO2 ABG HCO3 ABG Base Excess ABG Hemoglobin Oxyhemoglobin Sodium Potassium Chloride Carbon Dioxide BUN Creatinine Glucose POC Glucose 170 H 167 H 126 H Lactic Acid Calcium Ionized Calcium Phosphorus Magnesium Direct Bilirubin AST ALT Alkaline Phosphatase Lactate Dehydrogenase Troponin T C-Reactive Protein Total Protein Albumin Prealbumin Triglycerides Cholesterol LDL Cholesterol Direct HDL Cholesterol 25-OH Vitamin D Total PTH Intact Urine pH Urine WBC (Auto) Urine Creatinine Urine Total Protein Fluid Total Protein Vancomycin Trough Rheumatoid Factor Complement C4 Miscellaneous Test Crossmatch 10/17/16 10/18/16 10/18/16 23:17 04:00 04:00 WBC 20.7 H RBC 2.47 L Hgb 7.4 L Hct 22.9 L MCV MCH MCHC RDW 17.5 H Plt Count Lymph % (Auto) [place] % (Auto) Lymph # [place] # Baso # Seg Neutrophils % Seg Neuts % (Manual) Lymphocytes % (Manual) Monocytes % (Manual) Eosinophils % (Manual) Basophils % (Manual) Nucleated RBC % Seg Neutrophils # Seg Neutrophils # Man Lymphocytes # (Manual) Monocytes # (Manual) Eosinophils # (Manual) Basophils # (Manual) PT INR Fibrinogen dRVVT Confirm Interp Factor V Activity POC ABG pH POC ABG pCO2 POC ABG pO2 ABG pO2 ABG HCO3 ABG Base Excess ABG Hemoglobin Oxyhemoglobin Sodium 149 H Potassium Chloride 107.9 H Carbon Dioxide 20 L BUN 117 H Creatinine 3.2 H Glucose 119 H POC Glucose 121 H Lactic Acid Calcium Ionized Calcium Phosphorus Magnesium Direct Bilirubin AST ALT Alkaline Phosphatase Lactate Dehydrogenase Troponin T C-Reactive Protein Total Protein Albumin Prealbumin Triglycerides Cholesterol LDL Cholesterol Direct HDL Cholesterol 25-OH Vitamin D Total PTH Intact Urine pH Urine WBC (Auto) Urine Creatinine Urine Total Protein Fluid Total Protein Vancomycin Trough Rheumatoid Factor Complement C4 Miscellaneous Test Crossmatch 10/18/16 10/18/16 10/18/16 05:23 10:46 17:30 WBC RBC Hgb Hct MCV MCH MCHC RDW Plt Count Lymph % (Auto) [place] % (Auto) Lymph # [place] # Baso # Seg Neutrophils % Seg Neuts % (Manual) Lymphocytes % (Manual) Monocytes % (Manual) Eosinophils % (Manual) Basophils % (Manual) Nucleated RBC % Seg Neutrophils # Seg Neutrophils # Man Lymphocytes # (Manual) Monocytes # (Manual) Eosinophils # (Manual) Basophils # (Manual) PT INR Fibrinogen dRVVT Confirm Interp Factor V Activity POC ABG pH POC ABG pCO2 POC ABG pO2 ABG pO2 ABG HCO3 ABG Base Excess ABG Hemoglobin Oxyhemoglobin Sodium Potassium Chloride Carbon Dioxide BUN Creatinine Glucose POC Glucose 119 H 155 H 124 H Lactic Acid Calcium Ionized Calcium Phosphorus Magnesium Direct Bilirubin AST ALT Alkaline Phosphatase Lactate Dehydrogenase Troponin T C-Reactive Protein Total Protein Albumin Prealbumin Triglycerides Cholesterol LDL Cholesterol Direct HDL Cholesterol 25-OH Vitamin D Total PTH Intact Urine pH Urine WBC (Auto) Urine Creatinine Urine Total Protein Fluid Total Protein Vancomycin Trough Rheumatoid Factor Complement C4 Miscellaneous Test Crossmatch 10/19/16 10/19/16 10/19/16 04:00 04:00 05:25 WBC 17.4 H RBC 2.54 L Hgb 7.7 L Hct 23.6 L MCV MCH MCHC RDW 17.3 H Plt Count Lymph % (Auto) [place] % (Auto) Lymph # [place] # Baso # Seg Neutrophils % Seg Neuts % (Manual) Lymphocytes % (Manual) Monocytes % (Manual) Eosinophils % (Manual) Basophils % (Manual) Nucleated RBC % Seg Neutrophils # Seg Neutrophils # Man Lymphocytes # (Manual) Monocytes # (Manual) Eosinophils # (Manual) Basophils # (Manual) PT INR Fibrinogen dRVVT Confirm Interp Factor V Activity POC ABG pH POC ABG pCO2 POC ABG pO2 ABG pO2 ABG HCO3 ABG Base Excess ABG Hemoglobin Oxyhemoglobin Sodium Potassium Chloride Carbon Dioxide BUN 72 H Creatinine 2.1 H Glucose 116 H POC Glucose 119 H Lactic Acid Calcium Ionized Calcium Phosphorus Magnesium Direct Bilirubin AST ALT Alkaline Phosphatase Lactate Dehydrogenase Troponin T C-Reactive Protein Total Protein Albumin Prealbumin Triglycerides Cholesterol LDL Cholesterol Direct HDL Cholesterol 25-OH Vitamin D Total PTH Intact Urine pH Urine WBC (Auto) Urine Creatinine Urine Total Protein Fluid Total Protein Vancomycin Trough Rheumatoid Factor Complement C4 Miscellaneous Test Crossmatch 10/19/16 10/19/16 10/20/16 11:46 23:59 06:00 WBC RBC Hgb Hct MCV MCH MCHC RDW Plt Count Lymph % (Auto) [place] % (Auto) Lymph # [place] # Baso # Seg Neutrophils % Seg Neuts % (Manual) Lymphocytes % (Manual) Monocytes % (Manual) Eosinophils % (Manual) Basophils % (Manual) Nucleated RBC % Seg Neutrophils # Seg Neutrophils # Man Lymphocytes # (Manual) Monocytes # (Manual) Eosinophils # (Manual) Basophils # (Manual) PT INR Fibrinogen dRVVT Confirm Interp Factor V Activity POC ABG pH POC ABG pCO2 POC ABG pO2 ABG pO2 ABG HCO3 ABG Base Excess ABG Hemoglobin Oxyhemoglobin Sodium Potassium Chloride Carbon Dioxide 17 L BUN 94 H Creatinine 2.7 H Glucose POC Glucose 116 H 117 H Lactic Acid Calcium Ionized Calcium Phosphorus Magnesium Direct Bilirubin AST ALT Alkaline Phosphatase Lactate Dehydrogenase Troponin T C-Reactive Protein Total Protein Albumin Prealbumin Triglycerides Cholesterol LDL Cholesterol Direct HDL Cholesterol 25-OH Vitamin D Total PTH Intact Urine pH Urine WBC (Auto) Urine Creatinine Urine Total Protein Fluid Total Protein Vancomycin Trough Rheumatoid Factor Complement C4 Miscellaneous Test Crossmatch 10/20/16 10/20/16 10/20/16 06:00 11:49 16:00 WBC 19.7 H RBC 2.51 L Hgb 7.7 L Hct 23.5 L MCV MCH MCHC RDW 17.5 H Plt Count Lymph % (Auto) [place] % (Auto) Lymph # [place] # Baso # Seg Neutrophils % Seg Neuts % (Manual) Lymphocytes % (Manual) Monocytes % (Manual) Eosinophils % (Manual) Basophils % (Manual) Nucleated RBC % Seg Neutrophils # Seg Neutrophils # Man Lymphocytes # (Manual) Monocytes # (Manual) Eosinophils # (Manual) Basophils # (Manual) PT INR Fibrinogen dRVVT Confirm Interp Factor V Activity POC ABG pH POC ABG pCO2 POC ABG pO2 ABG pO2 ABG HCO3 ABG Base Excess ABG Hemoglobin Oxyhemoglobin Sodium Potassium Chloride Carbon Dioxide BUN Creatinine Glucose POC Glucose 117 H Lactic Acid Calcium Ionized Calcium Phosphorus Magnesium Direct Bilirubin AST ALT Alkaline Phosphatase Lactate Dehydrogenase Troponin T C-Reactive Protein Total Protein Albumin Prealbumin Triglycerides Cholesterol LDL Cholesterol Direct HDL Cholesterol 25-OH Vitamin D Total PTH Intact Urine pH Urine WBC (Auto) Urine Creatinine Urine Total Protein Fluid Total Protein Vancomycin Trough Rheumatoid Factor Complement C4 Miscellaneous Test Flexitest 1 H Crossmatch 10/20/16 10/20/16 10/21/16 18:36 23:39 04:00 WBC RBC Hgb Hct MCV MCH MCHC RDW Plt Count Lymph % (Auto) [place] % (Auto) Lymph # [place] # Baso # Seg Neutrophils % Seg Neuts % (Manual) Lymphocytes % (Manual) Monocytes % (Manual) Eosinophils % (Manual) Basophils % (Manual) Nucleated RBC % Seg Neutrophils # Seg Neutrophils # Man Lymphocytes # (Manual) Monocytes # (Manual) Eosinophils # (Manual) Basophils # (Manual) PT INR Fibrinogen dRVVT Confirm Interp Factor V Activity POC ABG pH POC ABG pCO2 POC ABG pO2 ABG pO2 ABG HCO3 ABG Base Excess ABG Hemoglobin Oxyhemoglobin Sodium Potassium 5.4 H D Chloride Carbon Dioxide 15 L BUN 110 H Creatinine 3.0 H Glucose POC Glucose 127 H 114 H Lactic Acid Calcium Ionized Calcium Phosphorus Magnesium Direct Bilirubin AST ALT Alkaline Phosphatase Lactate Dehydrogenase Troponin T C-Reactive Protein Total Protein Albumin Prealbumin Triglycerides Cholesterol LDL Cholesterol Direct HDL Cholesterol 25-OH Vitamin D Total PTH Intact Urine pH Urine WBC (Auto) Urine Creatinine Urine Total Protein Fluid Total Protein Vancomycin Trough Rheumatoid Factor Complement C4 Miscellaneous Test Crossmatch 10/21/16 10/21/16 10/22/16 05:54 23:46 05:18 WBC RBC Hgb Hct MCV MCH MCHC RDW Plt Count Lymph % (Auto) [place] % (Auto) Lymph # [place] # Baso # Seg Neutrophils % Seg Neuts % (Manual) Lymphocytes % (Manual) Monocytes % (Manual) Eosinophils % (Manual) Basophils % (Manual) Nucleated RBC % Seg Neutrophils # Seg Neutrophils # Man Lymphocytes # (Manual) Monocytes # (Manual) Eosinophils # (Manual) Basophils # (Manual) PT INR Fibrinogen dRVVT Confirm Interp Factor V Activity POC ABG pH POC ABG pCO2 POC ABG pO2 ABG pO2 ABG HCO3 ABG Base Excess ABG Hemoglobin Oxyhemoglobin Sodium Potassium Chloride Carbon Dioxide BUN Creatinine Glucose POC Glucose 119 H 108 H 109 H Lactic Acid Calcium Ionized Calcium Phosphorus Magnesium Direct Bilirubin AST ALT Alkaline Phosphatase Lactate Dehydrogenase Troponin T C-Reactive Protein Total Protein Albumin Prealbumin Triglycerides Cholesterol LDL Cholesterol Direct HDL Cholesterol 25-OH Vitamin D Total PTH Intact Urine pH Urine WBC (Auto) Urine Creatinine Urine Total Protein Fluid Total Protein Vancomycin Trough Rheumatoid Factor Complement C4 Miscellaneous Test Crossmatch 10/22/16 10/22/16 10/22/16 06:40 06:40 06:40 WBC 14.0 H RBC 2.03 L Hgb 7.0 L Hct 20.5 L MCV 98 H MCH 34 H MCHC 35 H RDW 17.8 H Plt Count Lymph % (Auto) [place] % (Auto) 9.9 H Lymph # [place] # 1.4 H Baso # 0.2 H Seg Neutrophils % 72.0 H Seg Neuts % (Manual) Lymphocytes % (Manual) Monocytes % (Manual) Eosinophils % (Manual) Basophils % (Manual) Nucleated RBC % Seg Neutrophils # 10.0 H Seg Neutrophils # Man Lymphocytes # (Manual) Monocytes # (Manual) Eosinophils # (Manual) Basophils # (Manual) PT INR Fibrinogen dRVVT Confirm Interp Factor V Activity POC ABG pH POC ABG pCO2 POC ABG pO2 ABG pO2 ABG HCO3 ABG Base Excess ABG Hemoglobin Oxyhemoglobin Sodium 130 L D Potassium Chloride 92.4 L Carbon Dioxide 20 L BUN 50 H Creatinine 1.6 H Glucose 589 H* POC Glucose Lactic Acid Calcium 7.8 L D Ionized Calcium Phosphorus Magnesium 1.60 L Direct Bilirubin AST ALT Alkaline Phosphatase Lactate Dehydrogenase Troponin T C-Reactive Protein Total Protein Albumin Prealbumin Triglycerides Cholesterol LDL Cholesterol Direct HDL Cholesterol 25-OH Vitamin D Total PTH Intact Urine pH Urine WBC (Auto) Urine Creatinine Urine Total Protein Fluid Total Protein Vancomycin Trough Rheumatoid Factor Complement C4 Miscellaneous Test Crossmatch 10/22/16 10/22/16 10/22/16 11:39 16:44 23:36 WBC RBC Hgb Hct MCV MCH MCHC RDW Plt Count Lymph % (Auto) [place] % (Auto) Lymph # [place] # Baso # Seg Neutrophils % Seg Neuts % (Manual) Lymphocytes % (Manual) Monocytes % (Manual) Eosinophils % (Manual) Basophils % (Manual) Nucleated RBC % Seg Neutrophils # Seg Neutrophils # Man Lymphocytes # (Manual) Monocytes # (Manual) Eosinophils # (Manual) Basophils # (Manual) PT INR Fibrinogen dRVVT Confirm Interp Factor V Activity POC ABG pH POC ABG pCO2 POC ABG pO2 ABG pO2 ABG HCO3 ABG Base Excess ABG Hemoglobin Oxyhemoglobin Sodium Potassium Chloride Carbon Dioxide BUN Creatinine Glucose POC Glucose 142 H 163 H 123 H Lactic Acid Calcium Ionized Calcium Phosphorus Magnesium Direct Bilirubin AST ALT Alkaline Phosphatase Lactate Dehydrogenase Troponin T C-Reactive Protein Total Protein Albumin Prealbumin Triglycerides Cholesterol LDL Cholesterol Direct HDL Cholesterol 25-OH Vitamin D Total PTH Intact Urine pH Urine WBC (Auto) Urine Creatinine Urine Total Protein Fluid Total Protein Vancomycin Trough Rheumatoid Factor Complement C4 Miscellaneous Test Crossmatch 10/23/16 10/23/16 10/23/16 04:58 06:00 12:12 WBC RBC Hgb Hct MCV MCH MCHC RDW Plt Count Lymph % (Auto) [place] % (Auto) Lymph # [place] # Baso # Seg Neutrophils % Seg Neuts % (Manual) Lymphocytes % (Manual) Monocytes % (Manual) Eosinophils % (Manual) Basophils % (Manual) Nucleated RBC % Seg Neutrophils # Seg Neutrophils # Man Lymphocytes # (Manual) Monocytes # (Manual) Eosinophils # (Manual) Basophils # (Manual) PT INR Fibrinogen dRVVT Confirm Interp Factor V Activity POC ABG pH POC ABG pCO2 POC ABG pO2 ABG pO2 ABG HCO3 ABG Base Excess ABG Hemoglobin Oxyhemoglobin Sodium 133 L Potassium 3.5 L Chloride 96.1 L Carbon Dioxide 18 L BUN 76 H Creatinine 2.1 H Glucose POC Glucose 133 H 138 H Lactic Acid Calcium 8.3 L Ionized Calcium Phosphorus Magnesium Direct Bilirubin AST ALT Alkaline Phosphatase Lactate Dehydrogenase Troponin T C-Reactive Protein Total Protein Albumin Prealbumin Triglycerides Cholesterol LDL Cholesterol Direct HDL Cholesterol 25-OH Vitamin D Total PTH Intact Urine pH Urine WBC (Auto) Urine Creatinine Urine Total Protein Fluid Total Protein Vancomycin Trough Rheumatoid Factor Complement C4 Miscellaneous Test Crossmatch 10/23/16 10/23/16 10/24/16 16:53 23:37 04:00 WBC RBC Hgb Hct MCV MCH MCHC RDW Plt Count Lymph % (Auto) [place] % (Auto) Lymph # [place] # Baso # Seg Neutrophils % Seg Neuts % (Manual) Lymphocytes % (Manual) Monocytes % (Manual) Eosinophils % (Manual) Basophils % (Manual) Nucleated RBC % Seg Neutrophils # Seg Neutrophils # Man Lymphocytes # (Manual) Monocytes # (Manual) Eosinophils # (Manual) Basophils # (Manual) PT INR Fibrinogen dRVVT Confirm Interp Factor V Activity POC ABG pH POC ABG pCO2 POC ABG pO2 ABG pO2 ABG HCO3 ABG Base Excess ABG Hemoglobin Oxyhemoglobin Sodium 131 L Potassium Chloride 94.5 L Carbon Dioxide 19 L BUN 97 H Creatinine 2.6 H Glucose 110 H POC Glucose 125 H 123 H Lactic Acid Calcium 8.3 L Ionized Calcium Phosphorus Magnesium Direct Bilirubin AST ALT Alkaline Phosphatase Lactate Dehydrogenase Troponin T C-Reactive Protein Total Protein Albumin Prealbumin Triglycerides Cholesterol LDL Cholesterol Direct HDL Cholesterol 25-OH Vitamin D Total PTH Intact Urine pH Urine WBC (Auto) Urine Creatinine Urine Total Protein Fluid Total Protein Vancomycin Trough Rheumatoid Factor Complement C4 Miscellaneous Test Crossmatch 10/24/16 10/24/16 10/24/16 07:49 11:39 17:52 WBC RBC Hgb 6.0 L Hct 19.7 L* MCV MCH MCHC RDW Plt Count Lymph % (Auto) [place] % (Auto) Lymph # [place] # Baso # Seg Neutrophils % Seg Neuts % (Manual) Lymphocytes % (Manual) Monocytes % (Manual) Eosinophils % (Manual) Basophils % (Manual) Nucleated RBC % Seg Neutrophils # Seg Neutrophils # Man Lymphocytes # (Manual) Monocytes # (Manual) Eosinophils # (Manual) Basophils # (Manual) PT INR Fibrinogen dRVVT Confirm Interp Factor V Activity POC ABG pH POC ABG pCO2 POC ABG pO2 ABG pO2 ABG HCO3 ABG Base Excess ABG Hemoglobin Oxyhemoglobin Sodium Potassium Chloride Carbon Dioxide BUN Creatinine Glucose POC Glucose 106 H 158 H Lactic Acid Calcium Ionized Calcium Phosphorus Magnesium Direct Bilirubin AST ALT Alkaline Phosphatase Lactate Dehydrogenase Troponin T C-Reactive Protein Total Protein Albumin Prealbumin Triglycerides Cholesterol LDL Cholesterol Direct HDL Cholesterol 25-OH Vitamin D Total PTH Intact Urine pH Urine WBC (Auto) Urine Creatinine Urine Total Protein Fluid Total Protein Vancomycin Trough Rheumatoid Factor Complement C4 Miscellaneous Test Crossmatch 10/24/16 10/24/16 10/24/16 20:00 22:27 Unknown WBC RBC Hgb 9.4 L D Hct 27.5 L D MCV MCH MCHC RDW Plt Count Lymph % (Auto) [place] % (Auto) Lymph # [place] # Baso # Seg Neutrophils % Seg Neuts % (Manual) Lymphocytes % (Manual) Monocytes % (Manual) Eosinophils % (Manual) Basophils % (Manual) Nucleated RBC % Seg Neutrophils # Seg Neutrophils # Man Lymphocytes # (Manual) Monocytes # (Manual) Eosinophils # (Manual) Basophils # (Manual) PT INR Fibrinogen dRVVT Confirm Interp Factor V Activity POC ABG pH POC ABG pCO2 POC ABG pO2 ABG pO2 ABG HCO3 ABG Base Excess ABG Hemoglobin Oxyhemoglobin Sodium Potassium Chloride Carbon Dioxide BUN Creatinine Glucose POC Glucose 125 H Lactic Acid Calcium Ionized Calcium Phosphorus Magnesium Direct Bilirubin AST ALT Alkaline Phosphatase Lactate Dehydrogenase Troponin T C-Reactive Protein Total Protein Albumin Prealbumin Triglycerides Cholesterol LDL Cholesterol Direct HDL Cholesterol 25-OH Vitamin D Total PTH Intact Urine pH Urine WBC (Auto) Urine Creatinine Urine Total Protein Fluid Total Protein Vancomycin Trough Rheumatoid Factor Complement C4 Miscellaneous Test Crossmatch See Detail 10/25/16 10/25/16 10/25/16 04:00 04:00 04:00 WBC 14.2 H RBC 2.98 L Hgb 9.0 L Hct 26.2 L MCV MCH MCHC RDW 16.6 H Plt Count Lymph % (Auto) [place] % (Auto) 10.7 H Lymph # [place] # 1.5 H Baso # Seg Neutrophils % 73.6 H Seg Neuts % (Manual) Lymphocytes % (Manual) Monocytes % (Manual) Eosinophils % (Manual) Basophils % (Manual) Nucleated RBC % Seg Neutrophils # 10.5 H Seg Neutrophils # Man Lymphocytes # (Manual) Monocytes # (Manual) Eosinophils # (Manual) Basophils # (Manual) PT INR Fibrinogen dRVVT Confirm Interp Factor V Activity POC ABG pH POC ABG pCO2 POC ABG pO2 ABG pO2 ABG HCO3 ABG Base Excess ABG Hemoglobin Oxyhemoglobin Sodium 132 L Potassium Chloride 94.7 L Carbon Dioxide BUN 51 H Creatinine 1.6 H Glucose 130 H POC Glucose Lactic Acid Calcium 8.3 L Ionized Calcium Phosphorus 1.60 L D Magnesium Direct Bilirubin AST ALT Alkaline Phosphatase Lactate Dehydrogenase Troponin T C-Reactive Protein Total Protein Albumin Prealbumin Triglycerides Cholesterol LDL Cholesterol Direct HDL Cholesterol 25-OH Vitamin D Total PTH Intact Urine pH Urine WBC (Auto) Urine Creatinine Urine Total Protein Fluid Total Protein Vancomycin Trough Rheumatoid Factor Complement C4 Miscellaneous Test Crossmatch 10/25/16 10/25/16 10/25/16 04:32 11:48 17:22 WBC RBC Hgb Hct MCV MCH MCHC RDW Plt Count Lymph % (Auto) [place] % (Auto) Lymph # [place] # Baso # Seg Neutrophils % Seg Neuts % (Manual) Lymphocytes % (Manual) Monocytes % (Manual) Eosinophils % (Manual) Basophils % (Manual) Nucleated RBC % Seg Neutrophils # Seg Neutrophils # Man Lymphocytes # (Manual) Monocytes # (Manual) Eosinophils # (Manual) Basophils # (Manual) PT INR Fibrinogen dRVVT Confirm Interp Factor V Activity POC ABG pH POC ABG pCO2 POC ABG pO2 ABG pO2 ABG HCO3 ABG Base Excess ABG Hemoglobin Oxyhemoglobin Sodium Potassium Chloride Carbon Dioxide BUN Creatinine Glucose POC Glucose 124 H 171 H 120 H Lactic Acid Calcium Ionized Calcium Phosphorus Magnesium Direct Bilirubin AST ALT Alkaline Phosphatase Lactate Dehydrogenase Troponin T C-Reactive Protein Total Protein Albumin Prealbumin Triglycerides Cholesterol LDL Cholesterol Direct HDL Cholesterol 25-OH Vitamin D Total PTH Intact Urine pH Urine WBC (Auto) Urine Creatinine Urine Total Protein Fluid Total Protein Vancomycin Trough Rheumatoid Factor Complement C4 Miscellaneous Test Crossmatch 10/26/16 10/26/16 10/26/16 04:54 07:06 07:06 WBC 16.9 H RBC 3.06 L Hgb 9.1 L Hct 26.9 L MCV MCH MCHC RDW 16.9 H Plt Count Lymph % (Auto) [place] % (Auto) Lymph # [place] # Baso # Seg Neutrophils % Seg Neuts % (Manual) 71.0 H Lymphocytes % (Manual) 5.0 L Monocytes % (Manual) 12.0 H Eosinophils % (Manual) Basophils % (Manual) Nucleated RBC % Seg Neutrophils # Seg Neutrophils # Man 12.0 H Lymphocytes # (Manual) 0.8 L Monocytes # (Manual) 2.0 H Eosinophils # (Manual) Basophils # (Manual) PT INR Fibrinogen dRVVT Confirm Interp Factor V Activity POC ABG pH POC ABG pCO2 POC ABG pO2 ABG pO2 ABG HCO3 ABG Base Excess ABG Hemoglobin Oxyhemoglobin Sodium 135 L Potassium Chloride 97.1 L Carbon Dioxide BUN 73 H Creatinine 2.2 H Glucose 117 H POC Glucose 123 H Lactic Acid Calcium Ionized Calcium Phosphorus 1.70 L Magnesium Direct Bilirubin AST ALT Alkaline Phosphatase Lactate Dehydrogenase Troponin T C-Reactive Protein Total Protein Albumin Prealbumin Triglycerides Cholesterol LDL Cholesterol Direct HDL Cholesterol 25-OH Vitamin D Total PTH Intact Urine pH Urine WBC (Auto) Urine Creatinine Urine Total Protein Fluid Total Protein Vancomycin Trough Rheumatoid Factor Complement C4 Miscellaneous Test Crossmatch 10/26/16 10/26/1617 12:12 17:29 23:42 WBC RBC Hgb Hct MCV MCH MCHC RDW Plt Count Lymph % (Auto) [place] % (Auto) Lymph # [place] # Baso # Seg Neutrophils % Seg Neuts % (Manual) Lymphocytes % (Manual) Monocytes % (Manual) Eosinophils % (Manual) Basophils % (Manual) Nucleated RBC % Seg Neutrophils # Seg Neutrophils # Man Lymphocytes # (Manual) Monocytes # (Manual) Eosinophils # (Manual) Basophils # (Manual) PT INR Fibrinogen dRVVT Confirm Interp Factor V Activity POC ABG pH POC ABG pCO2 POC ABG pO2 ABG pO2 ABG HCO3 ABG Base Excess ABG Hemoglobin Oxyhemoglobin Sodium Potassium Chloride Carbon Dioxide BUN Creatinine Glucose POC Glucose 126 H 161 H 118 H Lactic Acid Calcium Ionized Calcium Phosphorus Magnesium Direct Bilirubin AST ALT Alkaline Phosphatase Lactate Dehydrogenase Troponin T C-Reactive Protein Total Protein Albumin Prealbumin Triglycerides Cholesterol LDL Cholesterol Direct HDL Cholesterol 25-OH Vitamin D Total PTH Intact Urine pH Urine WBC (Auto) Urine Creatinine Urine Total Protein Fluid Total Protein Vancomycin Trough Rheumatoid Factor Complement C4 Miscellaneous Test Crossmatch 10/27/16 10/27/16 10/27/16 05:03 06:30 06:30 WBC 13.9 H RBC 3.09 L Hgb 9.2 L Hct 27.5 L MCV MCH MCHC RDW 17.0 H Plt Count Lymph % (Auto) [place] % (Auto) Lymph # [place] # Baso # Seg Neutrophils % Seg Neuts % (Manual) 78.0 H Lymphocytes % (Manual) Monocytes % (Manual) Eosinophils % (Manual) Basophils % (Manual) Nucleated RBC % 2.0 H Seg Neutrophils # Seg Neutrophils # Man 10.8 H Lymphocytes # (Manual) Monocytes # (Manual) 1.0 H Eosinophils # (Manual) Basophils # (Manual) PT INR Fibrinogen dRVVT Confirm Interp Factor V Activity POC ABG pH POC ABG pCO2 POC ABG pO2 ABG pO2 ABG HCO3 ABG Base Excess ABG Hemoglobin Oxyhemoglobin Sodium Potassium Chloride Carbon Dioxide BUN 40 H Creatinine 1.5 H Glucose 135 H POC Glucose 107 H Lactic Acid Calcium 8.3 L Ionized Calcium Phosphorus 1.30 L D Magnesium Direct Bilirubin AST ALT Alkaline Phosphatase Lactate Dehydrogenase Troponin T C-Reactive Protein Total Protein Albumin Prealbumin Triglycerides Cholesterol LDL Cholesterol Direct HDL Cholesterol 25-OH Vitamin D Total PTH Intact Urine pH Urine WBC (Auto) Urine Creatinine Urine Total Protein Fluid Total Protein Vancomycin Trough Rheumatoid Factor Complement C4 Miscellaneous Test Crossmatch 10/27/16 10/27/16 10/27/16 13:27 18:07 23:40 WBC RBC Hgb Hct MCV MCH MCHC RDW Plt Count Lymph % (Auto) [place] % (Auto) Lymph # [place] # Baso # Seg Neutrophils % Seg Neuts % (Manual) Lymphocytes % (Manual) Monocytes % (Manual) Eosinophils % (Manual) Basophils % (Manual) Nucleated RBC % Seg Neutrophils # Seg Neutrophils # Man Lymphocytes # (Manual) Monocytes # (Manual) Eosinophils # (Manual) Basophils # (Manual) PT INR Fibrinogen dRVVT Confirm Interp Factor V Activity POC ABG pH POC ABG pCO2 POC ABG pO2 ABG pO2 ABG HCO3 ABG Base Excess ABG Hemoglobin Oxyhemoglobin Sodium Potassium Chloride Carbon Dioxide BUN Creatinine Glucose POC Glucose 117 H 121 H 118 H Lactic Acid Calcium Ionized Calcium Phosphorus Magnesium Direct Bilirubin AST ALT Alkaline Phosphatase Lactate Dehydrogenase Troponin T C-Reactive Protein Total Protein Albumin Prealbumin Triglycerides Cholesterol LDL Cholesterol Direct HDL Cholesterol 25-OH Vitamin D Total PTH Intact Urine pH Urine WBC (Auto) Urine Creatinine Urine Total Protein Fluid Total Protein Vancomycin Trough Rheumatoid Factor Complement C4 Miscellaneous Test Crossmatch 10/28/16 10/28/16 10/28/16 05:48 06:45 06:45 WBC 14.7 H RBC 3.05 L Hgb 9.0 L Hct 26.9 L MCV MCH MCHC RDW 16.8 H Plt Count Lymph % (Auto) 8.2 L [place] % (Auto) 8.4 H Lymph # [place] # 1.2 H Baso # Seg Neutrophils % 81.9 H Seg Neuts % (Manual) Lymphocytes % (Manual) Monocytes % (Manual) Eosinophils % (Manual) Basophils % (Manual) Nucleated RBC % Seg Neutrophils # 12.1 H Seg Neutrophils # Man Lymphocytes # (Manual) Monocytes # (Manual) Eosinophils # (Manual) Basophils # (Manual) PT INR Fibrinogen dRVVT Confirm Interp Factor V Activity POC ABG pH POC ABG pCO2 POC ABG pO2 ABG pO2 ABG HCO3 ABG Base Excess ABG Hemoglobin Oxyhemoglobin Sodium Potassium Chloride Carbon Dioxide BUN 60 H Creatinine 1.9 H Glucose 120 H POC Glucose 114 H Lactic Acid Calcium Ionized Calcium Phosphorus Magnesium Direct Bilirubin AST ALT Alkaline Phosphatase Lactate Dehydrogenase Troponin T C-Reactive Protein Total Protein Albumin Prealbumin Triglycerides Cholesterol LDL Cholesterol Direct HDL Cholesterol 25-OH Vitamin D Total PTH Intact Urine pH Urine WBC (Auto) Urine Creatinine Urine Total Protein Fluid Total Protein Vancomycin Trough Rheumatoid Factor Complement C4 Miscellaneous Test Crossmatch 10/28/16 10/28/16 10/29/16 17:08 23:50 05:10 WBC RBC Hgb Hct MCV MCH MCHC RDW Plt Count Lymph % (Auto) [place] % (Auto) Lymph # [place] # Baso # Seg Neutrophils % Seg Neuts % (Manual) Lymphocytes % (Manual) Monocytes % (Manual) Eosinophils % (Manual) Basophils % (Manual) Nucleated RBC % Seg Neutrophils # Seg Neutrophils # Man Lymphocytes # (Manual) Monocytes # (Manual) Eosinophils # (Manual) Basophils # (Manual) PT INR Fibrinogen dRVVT Confirm Interp Factor V Activity POC ABG pH POC ABG pCO2 POC ABG pO2 ABG pO2 ABG HCO3 ABG Base Excess ABG Hemoglobin Oxyhemoglobin Sodium Potassium Chloride Carbon Dioxide BUN Creatinine Glucose POC Glucose 109 H 110 H 124 H Lactic Acid Calcium Ionized Calcium Phosphorus Magnesium Direct Bilirubin AST ALT Alkaline Phosphatase Lactate Dehydrogenase Troponin T C-Reactive Protein Total Protein Albumin Prealbumin Triglycerides Cholesterol LDL Cholesterol Direct HDL Cholesterol 25-OH Vitamin D Total PTH Intact Urine pH Urine WBC (Auto) Urine Creatinine Urine Total Protein Fluid Total Protein Vancomycin Trough Rheumatoid Factor Complement C4 Miscellaneous Test Crossmatch 10/29/16 10/29/16 10/29/16 07:45 07:45 12:19 WBC 14.7 H RBC 3.15 L Hgb 9.3 L Hct 28.9 L MCV MCH MCHC RDW 17.0 H Plt Count Lymph % (Auto) 11.9 L [place] % (Auto) 8.6 H Lymph # [place] # 1.3 H Baso # Seg Neutrophils % 78.1 H Seg Neuts % (Manual) Lymphocytes % (Manual) Monocytes % (Manual) Eosinophils % (Manual) Basophils % (Manual) Nucleated RBC % Seg Neutrophils # 11.4 H Seg Neutrophils # Man Lymphocytes # (Manual) Monocytes # (Manual) Eosinophils # (Manual) Basophils # (Manual) PT INR Fibrinogen dRVVT Confirm Interp Factor V Activity POC ABG pH POC ABG pCO2 POC ABG pO2 ABG pO2 ABG HCO3 ABG Base Excess ABG Hemoglobin Oxyhemoglobin Sodium Potassium 5.1 H Chloride Carbon Dioxide 19 L BUN 78 H Creatinine 2.2 H Glucose 116 H POC Glucose 118 H Lactic Acid Calcium Ionized Calcium Phosphorus Magnesium Direct Bilirubin AST ALT Alkaline Phosphatase Lactate Dehydrogenase Troponin T C-Reactive Protein Total Protein Albumin Prealbumin Triglycerides Cholesterol LDL Cholesterol Direct HDL Cholesterol 25-OH Vitamin D Total PTH Intact Urine pH Urine WBC (Auto) Urine Creatinine Urine Total Protein Fluid Total Protein Vancomycin Trough Rheumatoid Factor Complement C4 Miscellaneous Test Crossmatch 10/29/16 10/30/16 10/30/16 17:49 01:52 03:28 WBC RBC Hgb Hct MCV MCH MCHC RDW Plt Count Lymph % (Auto) [place] % (Auto) Lymph # [place] # Baso # Seg Neutrophils % Seg Neuts % (Manual) Lymphocytes % (Manual) Monocytes % (Manual) Eosinophils % (Manual) Basophils % (Manual) Nucleated RBC % Seg Neutrophils # Seg Neutrophils # Man Lymphocytes # (Manual) Monocytes # (Manual) Eosinophils # (Manual) Basophils # (Manual) PT INR Fibrinogen dRVVT Confirm Interp Factor V Activity POC ABG pH POC ABG pCO2 POC ABG pO2 ABG pO2 ABG HCO3 ABG Base Excess ABG Hemoglobin Oxyhemoglobin Sodium Potassium 5.4 H Chloride 97.5 L Carbon Dioxide 19 L BUN 90 H Creatinine 2.5 H Glucose POC Glucose 120 H 129 H Lactic Acid Calcium Ionized Calcium Phosphorus 5.20 H Magnesium Direct Bilirubin AST ALT Alkaline Phosphatase Lactate Dehydrogenase Troponin T C-Reactive Protein Total Protein Albumin Prealbumin Triglycerides Cholesterol LDL Cholesterol Direct HDL Cholesterol 25-OH Vitamin D Total PTH Intact Urine pH Urine WBC (Auto) Urine Creatinine Urine Total Protein Fluid Total Protein Vancomycin Trough Rheumatoid Factor Complement C4 Miscellaneous Test Crossmatch 10/30/16 10/30/16 10/30/16 03:28 08:19 08:19 WBC 11.6 H 15.9 H RBC 2.75 L 2.82 L Hgb 7.9 L 8.3 L Hct 24.2 L 25.2 L MCV MCH MCHC RDW 16.7 H 17.2 H Plt Count Lymph % (Auto) [place] % (Auto) 9.8 H Lymph # [place] # 1.1 H Baso # Seg Neutrophils % 74.2 H Seg Neuts % (Manual) Lymphocytes % (Manual) Monocytes % (Manual) Eosinophils % (Manual) Basophils % (Manual) Nucleated RBC % Seg Neutrophils # 8.6 H Seg Neutrophils # Man Lymphocytes # (Manual) Monocytes # (Manual) Eosinophils # (Manual) Basophils # (Manual) PT INR Fibrinogen dRVVT Confirm Interp Factor V Activity POC ABG pH POC ABG pCO2 POC ABG pO2 ABG pO2 ABG HCO3 ABG Base Excess ABG Hemoglobin Oxyhemoglobin Sodium Potassium 5.3 H Chloride 97.4 L Carbon Dioxide 19 L BUN 93 H Creatinine 2.6 H Glucose POC Glucose Lactic Acid Calcium Ionized Calcium Phosphorus Magnesium Direct Bilirubin AST ALT Alkaline Phosphatase Lactate Dehydrogenase Troponin T C-Reactive Protein Total Protein Albumin Prealbumin Triglycerides Cholesterol LDL Cholesterol Direct HDL Cholesterol 25-OH Vitamin D Total PTH Intact Urine pH Urine WBC (Auto) Urine Creatinine Urine Total Protein Fluid Total Protein Vancomycin Trough Rheumatoid Factor Complement C4 Miscellaneous Test Crossmatch 10/30/16 10/30/16 10/31/16 17:11 23:56 00:40 WBC RBC Hgb Hct MCV MCH MCHC RDW Plt Count Lymph % (Auto) [place] % (Auto) Lymph # [place] # Baso # Seg Neutrophils % Seg Neuts % (Manual) Lymphocytes % (Manual) Monocytes % (Manual) Eosinophils % (Manual) Basophils % (Manual) Nucleated RBC % Seg Neutrophils # Seg Neutrophils # Man Lymphocytes # (Manual) Monocytes # (Manual) Eosinophils # (Manual) Basophils # (Manual) PT INR Fibrinogen dRVVT Confirm Interp Factor V Activity POC ABG pH POC ABG pCO2 POC ABG pO2 ABG pO2 ABG HCO3 ABG Base Excess ABG Hemoglobin Oxyhemoglobin Sodium Potassium Chloride Carbon Dioxide BUN Creatinine Glucose POC Glucose 106 H 117 H 120 H Lactic Acid Calcium Ionized Calcium Phosphorus Magnesium Direct Bilirubin AST ALT Alkaline Phosphatase Lactate Dehydrogenase Troponin T C-Reactive Protein Total Protein Albumin Prealbumin Triglycerides Cholesterol LDL Cholesterol Direct HDL Cholesterol 25-OH Vitamin D Total PTH Intact Urine pH Urine WBC (Auto) Urine Creatinine Urine Total Protein Fluid Total Protein Vancomycin Trough Rheumatoid Factor Complement C4 Miscellaneous Test Crossmatch 10/31/16 10/31/16 10/31/16 05:43 07:15 07:15 WBC 12.1 H RBC 2.63 L Hgb 7.7 L Hct 23.3 L MCV MCH MCHC RDW 16.7 H Plt Count Lymph % (Auto) 11.7 L [place] % (Auto) 7.7 H Lymph # [place] # 0.9 H Baso # Seg Neutrophils % 78.0 H Seg Neuts % (Manual) Lymphocytes % (Manual) Monocytes % (Manual) Eosinophils % (Manual) Basophils % (Manual) Nucleated RBC % Seg Neutrophils # 9.4 H Seg Neutrophils # Man Lymphocytes # (Manual) Monocytes # (Manual) Eosinophils # (Manual) Basophils # (Manual) PT INR Fibrinogen dRVVT Confirm Interp Factor V Activity POC ABG pH POC ABG pCO2 POC ABG pO2 ABG pO2 ABG HCO3 ABG Base Excess ABG Hemoglobin Oxyhemoglobin Sodium Potassium Chloride 96.4 L Carbon Dioxide 21 L BUN 99 H Creatinine 2.6 H Glucose 144 H POC Glucose 125 H Lactic Acid Calcium Ionized Calcium Phosphorus 4.80 H Magnesium Direct Bilirubin AST ALT Alkaline Phosphatase Lactate Dehydrogenase Troponin T C-Reactive Protein Total Protein Albumin Prealbumin Triglycerides Cholesterol LDL Cholesterol Direct HDL Cholesterol 25-OH Vitamin D Total PTH Intact Urine pH Urine WBC (Auto) Urine Creatinine Urine Total Protein Fluid Total Protein Vancomycin Trough Rheumatoid Factor Complement C4 Miscellaneous Test Crossmatch 10/31/16 10/31/16 11/01/16 11:46 18:34 00:20 WBC RBC Hgb Hct MCV MCH MCHC RDW Plt Count Lymph % (Auto) [place] % (Auto) Lymph # [place] # Baso # Seg Neutrophils % Seg Neuts % (Manual) Lymphocytes % (Manual) Monocytes % (Manual) Eosinophils % (Manual) Basophils % (Manual) Nucleated RBC % Seg Neutrophils # Seg Neutrophils # Man Lymphocytes # (Manual) Monocytes # (Manual) Eosinophils # (Manual) Basophils # (Manual) PT INR Fibrinogen dRVVT Confirm Interp Factor V Activity POC ABG pH POC ABG pCO2 POC ABG pO2 ABG pO2 ABG HCO3 ABG Base Excess ABG Hemoglobin Oxyhemoglobin Sodium Potassium Chloride Carbon Dioxide BUN Creatinine Glucose POC Glucose 159 H 140 H 132 H Lactic Acid Calcium Ionized Calcium Phosphorus Magnesium Direct Bilirubin AST ALT Alkaline Phosphatase Lactate Dehydrogenase Troponin T C-Reactive Protein Total Protein Albumin Prealbumin Triglycerides Cholesterol LDL Cholesterol Direct HDL Cholesterol 25-OH Vitamin D Total PTH Intact Urine pH Urine WBC (Auto) Urine Creatinine Urine Total Protein Fluid Total Protein Vancomycin Trough Rheumatoid Factor Complement C4 Miscellaneous Test Crossmatch 11/01/16 11/01/16 11/01/16 04:55 04:55 06:11 WBC 11.2 H RBC 2.68 L Hgb 7.5 L Hct 23.7 L MCV MCH MCHC RDW 16.1 H Plt Count Lymph % (Auto) [place] % (Auto) 9.8 H Lymph # [place] # 1.1 H Baso # Seg Neutrophils % 70.8 H Seg Neuts % (Manual) Lymphocytes % (Manual) Monocytes % (Manual) Eosinophils % (Manual) Basophils % (Manual) Nucleated RBC % Seg Neutrophils # 7.9 H Seg Neutrophils # Man Lymphocytes # (Manual) Monocytes # (Manual) Eosinophils # (Manual) Basophils # (Manual) PT INR Fibrinogen dRVVT Confirm Interp Factor V Activity POC ABG pH POC ABG pCO2 POC ABG pO2 ABG pO2 ABG HCO3 ABG Base Excess ABG Hemoglobin Oxyhemoglobin Sodium Potassium 3.3 L D Chloride Carbon Dioxide BUN 61 H Creatinine 1.9 H Glucose 114 H POC Glucose 115 H Lactic Acid Calcium Ionized Calcium Phosphorus 1.80 L D Magnesium Direct Bilirubin AST ALT Alkaline Phosphatase Lactate Dehydrogenase Troponin T C-Reactive Protein Total Protein Albumin Prealbumin Triglycerides Cholesterol LDL Cholesterol Direct HDL Cholesterol 25-OH Vitamin D Total PTH Intact Urine pH Urine WBC (Auto) Urine Creatinine Urine Total Protein Fluid Total Protein Vancomycin Trough Rheumatoid Factor Complement C4 Miscellaneous Test Crossmatch 11/01/16 11/01/16 11/01/16 12:29 18:23 23:58 WBC RBC Hgb Hct MCV MCH MCHC RDW Plt Count Lymph % (Auto) [place] % (Auto) Lymph # [place] # Baso # Seg Neutrophils % Seg Neuts % (Manual) Lymphocytes % (Manual) Monocytes % (Manual) Eosinophils % (Manual) Basophils % (Manual) Nucleated RBC % Seg Neutrophils # Seg Neutrophils # Man Lymphocytes # (Manual) Monocytes # (Manual) Eosinophils # (Manual) Basophils # (Manual) PT INR Fibrinogen dRVVT Confirm Interp Factor V Activity POC ABG pH POC ABG pCO2 POC ABG pO2 ABG pO2 ABG HCO3 ABG Base Excess ABG Hemoglobin Oxyhemoglobin Sodium Potassium Chloride Carbon Dioxide BUN Creatinine Glucose POC Glucose 142 H 143 H 128 H Lactic Acid Calcium Ionized Calcium Phosphorus Magnesium Direct Bilirubin AST ALT Alkaline Phosphatase Lactate Dehydrogenase Troponin T C-Reactive Protein Total Protein Albumin Prealbumin Triglycerides Cholesterol LDL Cholesterol Direct HDL Cholesterol 25-OH Vitamin D Total PTH Intact Urine pH Urine WBC (Auto) Urine Creatinine Urine Total Protein Fluid Total Protein Vancomycin Trough Rheumatoid Factor Complement C4 Miscellaneous Test Crossmatch 11/02/16 11/02/16 11/02/16 04:16 05:29 11:58 WBC RBC Hgb Hct MCV MCH MCHC RDW Plt Count Lymph % (Auto) [place] % (Auto) Lymph # [place] # Baso # Seg Neutrophils % Seg Neuts % (Manual) Lymphocytes % (Manual) Monocytes % (Manual) Eosinophils % (Manual) Basophils % (Manual) Nucleated RBC % Seg Neutrophils # Seg Neutrophils # Man Lymphocytes # (Manual) Monocytes # (Manual) Eosinophils # (Manual) Basophils # (Manual) PT INR Fibrinogen dRVVT Confirm Interp Factor V Activity POC ABG pH POC ABG pCO2 POC ABG pO2 ABG pO2 ABG HCO3 ABG Base Excess ABG Hemoglobin Oxyhemoglobin Sodium Potassium 3.1 L Chloride Carbon Dioxide BUN 73 H Creatinine 2.3 H Glucose 112 H POC Glucose 135 H 149 H Lactic Acid Calcium Ionized Calcium Phosphorus Magnesium Direct Bilirubin AST ALT Alkaline Phosphatase Lactate Dehydrogenase Troponin T C-Reactive Protein Total Protein Albumin Prealbumin Triglycerides Cholesterol LDL Cholesterol Direct HDL Cholesterol 25-OH Vitamin D Total PTH Intact Urine pH Urine WBC (Auto) Urine Creatinine Urine Total Protein Fluid Total Protein Vancomycin Trough Rheumatoid Factor Complement C4 Miscellaneous Test Crossmatch 11/02/16 11/02/16 11/03/16 17:42 22:54 06:00 WBC RBC Hgb Hct MCV MCH MCHC RDW Plt Count Lymph % (Auto) [place] % (Auto) Lymph # [place] # Baso # Seg Neutrophils % Seg Neuts % (Manual) Lymphocytes % (Manual) Monocytes % (Manual) Eosinophils % (Manual) Basophils % (Manual) Nucleated RBC % Seg Neutrophils # Seg Neutrophils # Man Lymphocytes # (Manual) Monocytes # (Manual) Eosinophils # (Manual) Basophils # (Manual) PT INR Fibrinogen dRVVT Confirm Interp Factor V Activity POC ABG pH POC ABG pCO2 POC ABG pO2 ABG pO2 ABG HCO3 ABG Base Excess ABG Hemoglobin Oxyhemoglobin Sodium Potassium Chloride 96.7 L Carbon Dioxide BUN 41 H Creatinine 1.5 H Glucose 145 H POC Glucose 182 H 115 H Lactic Acid Calcium Ionized Calcium Phosphorus 1.60 L D Magnesium 1.50 L Direct Bilirubin AST ALT Alkaline Phosphatase Lactate Dehydrogenase Troponin T C-Reactive Protein Total Protein Albumin Prealbumin Triglycerides Cholesterol LDL Cholesterol Direct HDL Cholesterol 25-OH Vitamin D Total PTH Intact Urine pH Urine WBC (Auto) Urine Creatinine Urine Total Protein Fluid Total Protein Vancomycin Trough Rheumatoid Factor Complement C4 Miscellaneous Test Crossmatch 11/03/16 11/03/16 11/03/16 11:53 17:45 23:37 WBC RBC Hgb Hct MCV MCH MCHC RDW Plt Count Lymph % (Auto) [place] % (Auto) Lymph # [place] # Baso # Seg Neutrophils % Seg Neuts % (Manual) Lymphocytes % (Manual) Monocytes % (Manual) Eosinophils % (Manual) Basophils % (Manual) Nucleated RBC % Seg Neutrophils # Seg Neutrophils # Man Lymphocytes # (Manual) Monocytes # (Manual) Eosinophils # (Manual) Basophils # (Manual) PT INR Fibrinogen dRVVT Confirm Interp Factor V Activity POC ABG pH POC ABG pCO2 POC ABG pO2 ABG pO2 ABG HCO3 ABG Base Excess ABG Hemoglobin Oxyhemoglobin Sodium Potassium Chloride Carbon Dioxide BUN Creatinine Glucose POC Glucose 131 H 134 H 113 H Lactic Acid Calcium Ionized Calcium Phosphorus Magnesium Direct Bilirubin AST ALT Alkaline Phosphatase Lactate Dehydrogenase Troponin T C-Reactive Protein Total Protein Albumin Prealbumin Triglycerides Cholesterol LDL Cholesterol Direct HDL Cholesterol 25-OH Vitamin D Total PTH Intact Urine pH Urine WBC (Auto) Urine Creatinine Urine Total Protein Fluid Total Protein Vancomycin Trough Rheumatoid Factor Complement C4 Miscellaneous Test Crossmatch 11/04/16 11/04/16 11/04/16 05:41 06:00 12:10 WBC RBC Hgb Hct MCV MCH MCHC RDW Plt Count Lymph % (Auto) [place] % (Auto) Lymph # [place] # Baso # Seg Neutrophils % Seg Neuts % (Manual) Lymphocytes % (Manual) Monocytes % (Manual) Eosinophils % (Manual) Basophils % (Manual) Nucleated RBC % Seg Neutrophils # Seg Neutrophils # Man Lymphocytes # (Manual) Monocytes # (Manual) Eosinophils # (Manual) Basophils # (Manual) PT INR Fibrinogen dRVVT Confirm Interp Factor V Activity POC ABG pH POC ABG pCO2 POC ABG pO2 ABG pO2 ABG HCO3 ABG Base Excess ABG Hemoglobin Oxyhemoglobin Sodium Potassium Chloride 96.7 L Carbon Dioxide BUN 52 H Creatinine 1.9 H Glucose 126 H POC Glucose 137 H 191 H Lactic Acid Calcium Ionized Calcium Phosphorus Magnesium Direct Bilirubin AST ALT Alkaline Phosphatase Lactate Dehydrogenase Troponin T C-Reactive Protein Total Protein Albumin Prealbumin Triglycerides Cholesterol LDL Cholesterol Direct HDL Cholesterol 25-OH Vitamin D Total PTH Intact Urine pH Urine WBC (Auto) Urine Creatinine Urine Total Protein Fluid Total Protein Vancomycin Trough Rheumatoid Factor Complement C4 Miscellaneous Test Crossmatch 11/04/16 11/05/16 11/05/16 22:57 03:10 05:10 WBC RBC Hgb Hct MCV MCH MCHC RDW Plt Count Lymph % (Auto) [place] % (Auto) Lymph # [place] # Baso # Seg Neutrophils % Seg Neuts % (Manual) Lymphocytes % (Manual) Monocytes % (Manual) Eosinophils % (Manual) Basophils % (Manual) Nucleated RBC % Seg Neutrophils # Seg Neutrophils # Man Lymphocytes # (Manual) Monocytes # (Manual) Eosinophils # (Manual) Basophils # (Manual) PT INR Fibrinogen dRVVT Confirm Interp Factor V Activity POC ABG pH POC ABG pCO2 POC ABG pO2 ABG pO2 ABG HCO3 ABG Base Excess ABG Hemoglobin Oxyhemoglobin Sodium 136 L Potassium Chloride 97.2 L Carbon Dioxide BUN 32 H Creatinine 1.3 H Glucose 123 H POC Glucose 125 H 108 H Lactic Acid Calcium 7.8 L Ionized Calcium Phosphorus Magnesium Direct Bilirubin AST ALT Alkaline Phosphatase Lactate Dehydrogenase Troponin T C-Reactive Protein Total Protein Albumin Prealbumin Triglycerides Cholesterol LDL Cholesterol Direct HDL Cholesterol 25-OH Vitamin D Total PTH Intact Urine pH Urine WBC (Auto) Urine Creatinine Urine Total Protein Fluid Total Protein Vancomycin Trough Rheumatoid Factor Complement C4 Miscellaneous Test Crossmatch 11/05/16 11/05/16 11/05/16 12:23 13:09 13:25 WBC RBC Hgb Hct MCV MCH MCHC RDW Plt Count Lymph % (Auto) [place] % (Auto) Lymph # [place] # Baso # Seg Neutrophils % Seg Neuts % (Manual) Lymphocytes % (Manual) Monocytes % (Manual) Eosinophils % (Manual) Basophils % (Manual) Nucleated RBC % Seg Neutrophils # Seg Neutrophils # Man Lymphocytes # (Manual) Monocytes # (Manual) Eosinophils # (Manual) Basophils # (Manual) PT INR Fibrinogen dRVVT Confirm Interp Factor V Activity POC ABG pH POC ABG pCO2 POC ABG pO2 ABG pO2 ABG HCO3 ABG Base Excess ABG Hemoglobin Oxyhemoglobin Sodium Potassium Chloride Carbon Dioxide BUN Creatinine Glucose POC Glucose 124 H Lactic Acid Calcium Ionized Calcium Phosphorus Magnesium Direct Bilirubin AST ALT Alkaline Phosphatase Lactate Dehydrogenase Troponin T C-Reactive Protein 11.40 H Total Protein Albumin Prealbumin Triglycerides Cholesterol LDL Cholesterol Direct HDL Cholesterol 25-OH Vitamin D Total PTH Intact Urine pH 9.0 H Urine WBC (Auto) Urine Creatinine Urine Total Protein Fluid Total Protein Vancomycin Trough Rheumatoid Factor Complement C4 Miscellaneous Test Crossmatch 11/05/16 11/05/16 11/05/16 13:25 17:54 23:42 WBC RBC Hgb Hct MCV MCH MCHC RDW Plt Count Lymph % (Auto) [place] % (Auto) Lymph # [place] # Baso # Seg Neutrophils % Seg Neuts % (Manual) Lymphocytes % (Manual) Monocytes % (Manual) Eosinophils % (Manual) Basophils % (Manual) Nucleated RBC % Seg Neutrophils # Seg Neutrophils # Man Lymphocytes # (Manual) Monocytes # (Manual) Eosinophils # (Manual) Basophils # (Manual) PT INR Fibrinogen dRVVT Confirm Interp Factor V Activity POC ABG pH POC ABG pCO2 POC ABG pO2 ABG pO2 ABG HCO3 ABG Base Excess ABG Hemoglobin Oxyhemoglobin Sodium Potassium Chloride Carbon Dioxide BUN Creatinine Glucose POC Glucose 114 H 134 H Lactic Acid Calcium Ionized Calcium Phosphorus Magnesium Direct Bilirubin AST ALT Alkaline Phosphatase Lactate Dehydrogenase Troponin T C-Reactive Protein Total Protein Albumin Prealbumin Triglycerides Cholesterol LDL Cholesterol Direct HDL Cholesterol 25-OH Vitamin D Total PTH Intact Urine pH Urine WBC (Auto) Urine Creatinine Urine Total Protein Fluid Total Protein Vancomycin Trough Rheumatoid Factor Complement C4 Miscellaneous Test Flexitest 1 H Crossmatch 11/06/16 11/06/16 11/06/16 04:56 06:25 06:25 WBC RBC 2.50 L Hgb 7.3 L Hct 22.5 L MCV MCH MCHC RDW 16.9 H Plt Count Lymph % (Auto) [place] % (Auto) 10.5 H Lymph # [place] # 1.1 H Baso # Seg Neutrophils % Seg Neuts % (Manual) Lymphocytes % (Manual) Monocytes % (Manual) Eosinophils % (Manual) Basophils % (Manual) Nucleated RBC % Seg Neutrophils # Seg Neutrophils # Man Lymphocytes # (Manual) Monocytes # (Manual) Eosinophils # (Manual) Basophils # (Manual) PT INR Fibrinogen dRVVT Confirm Interp Factor V Activity POC ABG pH POC ABG pCO2 POC ABG pO2 ABG pO2 ABG HCO3 ABG Base Excess ABG Hemoglobin Oxyhemoglobin Sodium Potassium 5.1 H Chloride 95.9 L Carbon Dioxide BUN 52 H Creatinine 1.8 H Glucose 117 H POC Glucose 120 H Lactic Acid Calcium Ionized Calcium Phosphorus Magnesium Direct Bilirubin AST 103 H ALT 77 H Alkaline Phosphatase 285 H Lactate Dehydrogenase Troponin T C-Reactive Protein Total Protein 6.2 L Albumin 1.8 L Prealbumin 0.180 L Triglycerides Cholesterol LDL Cholesterol Direct HDL Cholesterol 25-OH Vitamin D Total PTH Intact Urine pH Urine WBC (Auto) Urine Creatinine Urine Total Protein Fluid Total Protein Vancomycin Trough Rheumatoid Factor Complement C4 Miscellaneous Test Crossmatch 11/06/16 11/06/16 11/06/16 11:56 17:14 23:52 WBC RBC Hgb Hct MCV MCH MCHC RDW Plt Count Lymph % (Auto) [place] % (Auto) Lymph # [place] # Baso # Seg Neutrophils % Seg Neuts % (Manual) Lymphocytes % (Manual) Monocytes % (Manual) Eosinophils % (Manual) Basophils % (Manual) Nucleated RBC % Seg Neutrophils # Seg Neutrophils # Man Lymphocytes # (Manual) Monocytes # (Manual) Eosinophils # (Manual) Basophils # (Manual) PT INR Fibrinogen dRVVT Confirm Interp Factor V Activity POC ABG pH POC ABG pCO2 POC ABG pO2 ABG pO2 ABG HCO3 ABG Base Excess ABG Hemoglobin Oxyhemoglobin Sodium Potassium Chloride Carbon Dioxide BUN Creatinine Glucose POC Glucose 141 H 125 H 130 H Lactic Acid Calcium Ionized Calcium Phosphorus Magnesium Direct Bilirubin AST ALT Alkaline Phosphatase Lactate Dehydrogenase Troponin T C-Reactive Protein Total Protein Albumin Prealbumin Triglycerides Cholesterol LDL Cholesterol Direct HDL Cholesterol 25-OH Vitamin D Total PTH Intact Urine pH Urine WBC (Auto) Urine Creatinine Urine Total Protein Fluid Total Protein Vancomycin Trough Rheumatoid Factor Complement C4 Miscellaneous Test Crossmatch 11/07/16 11/07/16 11/07/16 06:30 06:30 09:37 WBC RBC 2.18 L Hgb 6.3 L Hct 19.7 L* MCV MCH MCHC RDW 16.8 H Plt Count Lymph % (Auto) [place] % (Auto) 10.0 H Lymph # [place] # 1.0 H Baso # Seg Neutrophils % Seg Neuts % (Manual) Lymphocytes % (Manual) Monocytes % (Manual) Eosinophils % (Manual) Basophils % (Manual) Nucleated RBC % Seg Neutrophils # Seg Neutrophils # Man Lymphocytes # (Manual) Monocytes # (Manual) Eosinophils # (Manual) Basophils # (Manual) PT INR Fibrinogen dRVVT Confirm Interp Factor V Activity POC ABG pH POC ABG pCO2 POC ABG pO2 ABG pO2 ABG HCO3 ABG Base Excess ABG Hemoglobin Oxyhemoglobin Sodium 135 L Potassium Chloride 95.6 L Carbon Dioxide BUN 70 H Creatinine 2.0 H Glucose 126 H POC Glucose Lactic Acid Calcium Ionized Calcium Phosphorus Magnesium Direct Bilirubin AST ALT Alkaline Phosphatase Lactate Dehydrogenase Troponin T C-Reactive Protein Total Protein Albumin Prealbumin Triglycerides Cholesterol LDL Cholesterol Direct HDL Cholesterol 25-OH Vitamin D Total PTH Intact Urine pH Urine WBC (Auto) Urine Creatinine Urine Total Protein Fluid Total Protein Vancomycin Trough Rheumatoid Factor Complement C4 Miscellaneous Test Crossmatch See Detail 11/07/16 11/07/16 11/07/16 12:52 18:51 21:26 WBC RBC Hgb Hct MCV MCH MCHC RDW Plt Count Lymph % (Auto) [place] % (Auto) Lymph # [place] # Baso # Seg Neutrophils % Seg Neuts % (Manual) Lymphocytes % (Manual) Monocytes % (Manual) Eosinophils % (Manual) Basophils % (Manual) Nucleated RBC % Seg Neutrophils # Seg Neutrophils # Man Lymphocytes # (Manual) Monocytes # (Manual) Eosinophils # (Manual) Basophils # (Manual) PT INR Fibrinogen dRVVT Confirm Interp Factor V Activity POC ABG pH 7.523 H POC ABG pCO2 34.6 L POC ABG pO2 53 L ABG pO2 ABG HCO3 ABG Base Excess ABG Hemoglobin Oxyhemoglobin Sodium Potassium Chloride Carbon Dioxide BUN Creatinine Glucose POC Glucose 142 H 155 H Lactic Acid Calcium Ionized Calcium Phosphorus Magnesium Direct Bilirubin AST ALT Alkaline Phosphatase Lactate Dehydrogenase Troponin T C-Reactive Protein Total Protein Albumin Prealbumin Triglycerides Cholesterol LDL Cholesterol Direct HDL Cholesterol 25-OH Vitamin D Total PTH Intact Urine pH Urine WBC (Auto) Urine Creatinine Urine Total Protein Fluid Total Protein Vancomycin Trough Rheumatoid Factor Complement C4 Miscellaneous Test Crossmatch 11/07/16 11/08/16 11/08/16 21:34 13:03 23:37 WBC RBC 2.63 L Hgb 7.7 L Hct 22.7 L MCV MCH MCHC RDW 17.0 H Plt Count Lymph % (Auto) [place] % (Auto) Lymph # [place] # Baso # Seg Neutrophils % Seg Neuts % (Manual) Lymphocytes % (Manual) Monocytes % (Manual) Eosinophils % (Manual) Basophils % (Manual) Nucleated RBC % Seg Neutrophils # Seg Neutrophils # Man Lymphocytes # (Manual) Monocytes # (Manual) Eosinophils # (Manual) Basophils # (Manual) PT INR Fibrinogen dRVVT Confirm Interp Factor V Activity POC ABG pH 7.478 H POC ABG pCO2 34.0 L POC ABG pO2 50 L ABG pO2 ABG HCO3 ABG Base Excess ABG Hemoglobin Oxyhemoglobin Sodium Potassium Chloride Carbon Dioxide BUN Creatinine Glucose POC Glucose 113 H Lactic Acid Calcium Ionized Calcium Phosphorus Magnesium Direct Bilirubin AST ALT Alkaline Phosphatase Lactate Dehydrogenase Troponin T C-Reactive Protein Total Protein Albumin Prealbumin Triglycerides Cholesterol LDL Cholesterol Direct HDL Cholesterol 25-OH Vitamin D Total PTH Intact Urine pH Urine WBC (Auto) Urine Creatinine Urine Total Protein Fluid Total Protein Vancomycin Trough Rheumatoid Factor Complement C4 Miscellaneous Test Crossmatch 11/09/16 11/09/16 11/09/16 04:35 10:15 18:21 WBC RBC 2.68 L Hgb 7.8 L Hct 23.3 L MCV MCH MCHC RDW 17.0 H Plt Count Lymph % (Auto) [place] % (Auto) 12.1 H Lymph # [place] # 1.1 H Baso # Seg Neutrophils % Seg Neuts % (Manual) Lymphocytes % (Manual) Monocytes % (Manual) Eosinophils % (Manual) Basophils % (Manual) Nucleated RBC % Seg Neutrophils # Seg Neutrophils # Man Lymphocytes # (Manual) Monocytes # (Manual) Eosinophils # (Manual) Basophils # (Manual) PT INR Fibrinogen dRVVT Confirm Interp Factor V Activity POC ABG pH POC ABG pCO2 POC ABG pO2 ABG pO2 ABG HCO3 ABG Base Excess ABG Hemoglobin Oxyhemoglobin Sodium Potassium Chloride Carbon Dioxide BUN 51 H Creatinine 1.8 H Glucose POC Glucose 60 L Lactic Acid Calcium 8.3 L Ionized Calcium Phosphorus Magnesium Direct Bilirubin AST ALT Alkaline Phosphatase Lactate Dehydrogenase Troponin T C-Reactive Protein Total Protein Albumin Prealbumin Triglycerides Cholesterol LDL Cholesterol Direct HDL Cholesterol 25-OH Vitamin D Total PTH Intact Urine pH Urine WBC (Auto) Urine Creatinine Urine Total Protein Fluid Total Protein Vancomycin Trough Rheumatoid Factor Complement C4 Miscellaneous Test Crossmatch 11/09/16 11/10/16 11/10/16 18:55 07:00 11:51 WBC RBC Hgb Hct MCV MCH MCHC RDW Plt Count Lymph % (Auto) [place] % (Auto) Lymph # [place] # Baso # Seg Neutrophils % Seg Neuts % (Manual) Lymphocytes % (Manual) Monocytes % (Manual) Eosinophils % (Manual) Basophils % (Manual) Nucleated RBC % Seg Neutrophils # Seg Neutrophils # Man Lymphocytes # (Manual) Monocytes # (Manual) Eosinophils # (Manual) Basophils # (Manual) PT INR Fibrinogen dRVVT Confirm Interp Factor V Activity POC ABG pH POC ABG pCO2 POC ABG pO2 ABG pO2 ABG HCO3 ABG Base Excess ABG Hemoglobin Oxyhemoglobin Sodium Potassium 3.0 L D Chloride 97.4 L Carbon Dioxide BUN 28 H Creatinine 1.3 H Glucose POC Glucose 68 L 120 H Lactic Acid Calcium 7.8 L Ionized Calcium Phosphorus Magnesium Direct Bilirubin AST ALT Alkaline Phosphatase Lactate Dehydrogenase Troponin T C-Reactive Protein Total Protein Albumin Prealbumin Triglycerides Cholesterol LDL Cholesterol Direct HDL Cholesterol 25-OH Vitamin D Total PTH Intact Urine pH Urine WBC (Auto) Urine Creatinine Urine Total Protein Fluid Total Protein Vancomycin Trough Rheumatoid Factor Complement C4 Miscellaneous Test Crossmatch 11/10/16 11/11/16 11/11/16 14:20 06:59 06:59 WBC RBC 2.81 L Hgb 8.1 L Hct 24.4 L MCV MCH MCHC RDW 16.4 H Plt Count Lymph % (Auto) [place] % (Auto) 10.8 H Lymph # [place] # 1.0 H Baso # Seg Neutrophils % Seg Neuts % (Manual) Lymphocytes % (Manual) Monocytes % (Manual) Eosinophils % (Manual) Basophils % (Manual) Nucleated RBC % Seg Neutrophils # Seg Neutrophils # Man Lymphocytes # (Manual) Monocytes # (Manual) Eosinophils # (Manual) Basophils # (Manual) PT INR Fibrinogen dRVVT Confirm Interp Factor V Activity POC ABG pH POC ABG pCO2 POC ABG pO2 ABG pO2 ABG HCO3 ABG Base Excess ABG Hemoglobin Oxyhemoglobin Sodium Potassium Chloride Carbon Dioxide BUN Creatinine Glucose POC Glucose Lactic Acid Calcium Ionized Calcium Phosphorus Magnesium Direct Bilirubin AST ALT Alkaline Phosphatase Lactate Dehydrogenase 196 H Troponin T C-Reactive Protein Total Protein 6.1 L Albumin Prealbumin Triglycerides Cholesterol LDL Cholesterol Direct HDL Cholesterol 25-OH Vitamin D Total PTH Intact Urine pH Urine WBC (Auto) Urine Creatinine Urine Total Protein Fluid Total Protein < 3.0 L Vancomycin Trough Rheumatoid Factor Complement C4 Miscellaneous Test Crossmatch 11/11/16 11/11/16 11/12/16 06:59 09:50 04:00 WBC RBC Hgb Hct MCV MCH MCHC RDW Plt Count Lymph % (Auto) [place] % (Auto) Lymph # [place] # Baso # Seg Neutrophils % Seg Neuts % (Manual) Lymphocytes % (Manual) Monocytes % (Manual) Eosinophils % (Manual) Basophils % (Manual) Nucleated RBC % Seg Neutrophils # Seg Neutrophils # Man Lymphocytes # (Manual) Monocytes # (Manual) Eosinophils # (Manual) Basophils # (Manual) PT INR 1.18 H Fibrinogen dRVVT Confirm Interp Factor V Activity POC ABG pH POC ABG pCO2 POC ABG pO2 ABG pO2 ABG HCO3 ABG Base Excess ABG Hemoglobin Oxyhemoglobin Sodium 136 L 133 L Potassium Chloride 96.1 L 94.8 L Carbon Dioxide 21 L BUN 37 H 42 H Creatinine 1.8 H 2.0 H Glucose POC Glucose Lactic Acid Calcium Ionized Calcium Phosphorus Magnesium Direct Bilirubin AST ALT Alkaline Phosphatase Lactate Dehydrogenase Troponin T C-Reactive Protein Total Protein Albumin Prealbumin Triglycerides Cholesterol LDL Cholesterol Direct HDL Cholesterol 25-OH Vitamin D Total PTH Intact Urine pH Urine WBC (Auto) Urine Creatinine Urine Total Protein Fluid Total Protein Vancomycin Trough Rheumatoid Factor Complement C4 Miscellaneous Test Crossmatch 11/12/16 11/12/16 11/13/16 04:00 23:55 05:53 WBC RBC Hgb 8.9 L Hct 27.2 L MCV MCH MCHC RDW Plt Count Lymph % (Auto) [place] % (Auto) Lymph # [place] # Baso # Seg Neutrophils % Seg Neuts % (Manual) Lymphocytes % (Manual) Monocytes % (Manual) Eosinophils % (Manual) Basophils % (Manual) Nucleated RBC % Seg Neutrophils # Seg Neutrophils # Man Lymphocytes # (Manual) Monocytes # (Manual) Eosinophils # (Manual) Basophils # (Manual) PT INR Fibrinogen dRVVT Confirm Interp Factor V Activity POC ABG pH POC ABG pCO2 POC ABG pO2 ABG pO2 ABG HCO3 ABG Base Excess ABG Hemoglobin Oxyhemoglobin Sodium Potassium Chloride Carbon Dioxide BUN Creatinine Glucose POC Glucose 132 H 120 H Lactic Acid Calcium Ionized Calcium Phosphorus Magnesium Direct Bilirubin AST ALT Alkaline Phosphatase Lactate Dehydrogenase Troponin T C-Reactive Protein Total Protein Albumin Prealbumin Triglycerides Cholesterol LDL Cholesterol Direct HDL Cholesterol 25-OH Vitamin D Total PTH Intact Urine pH Urine WBC (Auto) Urine Creatinine Urine Total Protein Fluid Total Protein Vancomycin Trough Rheumatoid Factor Complement C4 Miscellaneous Test Crossmatch 11/13/16 11/13/16 11/13/16 11:43 17:09 23:41 WBC RBC Hgb Hct MCV MCH MCHC RDW Plt Count Lymph % (Auto) [place] % (Auto) Lymph # [place] # Baso # Seg Neutrophils % Seg Neuts % (Manual) Lymphocytes % (Manual) Monocytes % (Manual) Eosinophils % (Manual) Basophils % (Manual) Nucleated RBC % Seg Neutrophils # Seg Neutrophils # Man Lymphocytes # (Manual) Monocytes # (Manual) Eosinophils # (Manual) Basophils # (Manual) PT INR Fibrinogen dRVVT Confirm Interp Factor V Activity POC ABG pH POC ABG pCO2 POC ABG pO2 ABG pO2 ABG HCO3 ABG Base Excess ABG Hemoglobin Oxyhemoglobin Sodium Potassium Chloride Carbon Dioxide BUN Creatinine Glucose POC Glucose 114 H 113 H 108 H Lactic Acid Calcium Ionized Calcium Phosphorus Magnesium Direct Bilirubin AST ALT Alkaline Phosphatase Lactate Dehydrogenase Troponin T C-Reactive Protein Total Protein Albumin Prealbumin Triglycerides Cholesterol LDL Cholesterol Direct HDL Cholesterol 25-OH Vitamin D Total PTH Intact Urine pH Urine WBC (Auto) Urine Creatinine Urine Total Protein Fluid Total Protein Vancomycin Trough Rheumatoid Factor Complement C4 Miscellaneous Test Crossmatch 11/13/16 11/15/16 11/15/16 Unknown 00:37 03:30 WBC 11.2 H RBC 2.72 L Hgb 7.6 L Hct 23.4 L MCV MCH MCHC RDW 16.5 H Plt Count Lymph % (Auto) [place] % (Auto) Lymph # [place] # Baso # Seg Neutrophils % Seg Neuts % (Manual) Lymphocytes % (Manual) Monocytes % (Manual) Eosinophils % (Manual) Basophils % (Manual) Nucleated RBC % Seg Neutrophils # Seg Neutrophils # Man Lymphocytes # (Manual) Monocytes # (Manual) Eosinophils # (Manual) Basophils # (Manual) PT INR Fibrinogen dRVVT Confirm Interp Factor V Activity POC ABG pH POC ABG pCO2 POC ABG pO2 ABG pO2 ABG HCO3 ABG Base Excess ABG Hemoglobin Oxyhemoglobin Sodium 135 L Potassium Chloride 95.2 L Carbon Dioxide BUN 52 H Creatinine 2.2 H Glucose POC Glucose 108 H Lactic Acid Calcium Ionized Calcium Phosphorus Magnesium Direct Bilirubin AST ALT Alkaline Phosphatase Lactate Dehydrogenase Troponin T C-Reactive Protein Total Protein Albumin Prealbumin Triglycerides Cholesterol LDL Cholesterol Direct HDL Cholesterol 25-OH Vitamin D Total PTH Intact Urine pH Urine WBC (Auto) Urine Creatinine Urine Total Protein Fluid Total Protein Vancomycin Trough Rheumatoid Factor Complement C4 Miscellaneous Test Crossmatch 11/15/16 11/15/16 11/15/16 03:30 05:04 11:50 WBC RBC Hgb Hct MCV MCH MCHC RDW Plt Count Lymph % (Auto) [place] % (Auto) Lymph # [place] # Baso # Seg Neutrophils % Seg Neuts % (Manual) Lymphocytes % (Manual) Monocytes % (Manual) Eosinophils % (Manual) Basophils % (Manual) Nucleated RBC % Seg Neutrophils # Seg Neutrophils # Man Lymphocytes # (Manual) Monocytes # (Manual) Eosinophils # (Manual) Basophils # (Manual) PT INR Fibrinogen dRVVT Confirm Interp Factor V Activity POC ABG pH POC ABG pCO2 POC ABG pO2 ABG pO2 ABG HCO3 ABG Base Excess ABG Hemoglobin Oxyhemoglobin Sodium Potassium 3.4 L Chloride Carbon Dioxide BUN 25 H Creatinine 1.5 H Glucose 103 H POC Glucose 121 H 144 H Lactic Acid Calcium Ionized Calcium Phosphorus Magnesium Direct Bilirubin AST ALT Alkaline Phosphatase Lactate Dehydrogenase Troponin T C-Reactive Protein Total Protein Albumin Prealbumin Triglycerides Cholesterol LDL Cholesterol Direct HDL Cholesterol 25-OH Vitamin D Total PTH Intact Urine pH Urine WBC (Auto) Urine Creatinine Urine Total Protein Fluid Total Protein Vancomycin Trough Rheumatoid Factor Complement C4 Miscellaneous Test Crossmatch 11/15/16 11/15/16 11/16/16 21:28 23:20 11:44 WBC RBC Hgb Hct MCV MCH MCHC RDW Plt Count Lymph % (Auto) [place] % (Auto) Lymph # [place] # Baso # Seg Neutrophils % Seg Neuts % (Manual) Lymphocytes % (Manual) Monocytes % (Manual) Eosinophils % (Manual) Basophils % (Manual) Nucleated RBC % Seg Neutrophils # Seg Neutrophils # Man Lymphocytes # (Manual) Monocytes # (Manual) Eosinophils # (Manual) Basophils # (Manual) PT INR Fibrinogen dRVVT Confirm Interp Factor V Activity POC ABG pH 7.462 H POC ABG pCO2 POC ABG pO2 71 L ABG pO2 ABG HCO3 ABG Base Excess ABG Hemoglobin Oxyhemoglobin Sodium Potassium Chloride Carbon Dioxide BUN Creatinine Glucose POC Glucose 116 H 133 H Lactic Acid Calcium Ionized Calcium Phosphorus Magnesium Direct Bilirubin AST ALT Alkaline Phosphatase Lactate Dehydrogenase Troponin T C-Reactive Protein Total Protein Albumin Prealbumin Triglycerides Cholesterol LDL Cholesterol Direct HDL Cholesterol 25-OH Vitamin D Total PTH Intact Urine pH Urine WBC (Auto) Urine Creatinine Urine Total Protein Fluid Total Protein Vancomycin Trough Rheumatoid Factor Complement C4 Miscellaneous Test Crossmatch 11/16/16 11/16/16 11/16/16 12:20 17:05 23:35 WBC 11.7 H RBC 2.73 L Hgb 7.6 L Hct 23.7 L MCV MCH MCHC RDW 16.6 H Plt Count Lymph % (Auto) [place] % (Auto) Lymph # [place] # Baso # Seg Neutrophils % Seg Neuts % (Manual) Lymphocytes % (Manual) Monocytes % (Manual) Eosinophils % (Manual) Basophils % (Manual) Nucleated RBC % Seg Neutrophils # Seg Neutrophils # Man Lymphocytes # (Manual) Monocytes # (Manual) Eosinophils # (Manual) Basophils # (Manual) PT INR Fibrinogen dRVVT Confirm Interp Factor V Activity POC ABG pH POC ABG pCO2 POC ABG pO2 ABG pO2 ABG HCO3 ABG Base Excess ABG Hemoglobin Oxyhemoglobin Sodium Potassium Chloride Carbon Dioxide BUN Creatinine Glucose POC Glucose 154 H 125 H Lactic Acid Calcium Ionized Calcium Phosphorus Magnesium Direct Bilirubin AST ALT Alkaline Phosphatase Lactate Dehydrogenase Troponin T C-Reactive Protein Total Protein Albumin Prealbumin Triglycerides Cholesterol LDL Cholesterol Direct HDL Cholesterol 25-OH Vitamin D Total PTH Intact Urine pH Urine WBC (Auto) Urine Creatinine Urine Total Protein Fluid Total Protein Vancomycin Trough Rheumatoid Factor Complement C4 Miscellaneous Test Crossmatch 11/17/16 11/17/16 11/17/16 03:20 03:20 03:20 WBC RBC 2.55 L Hgb 7.3 L Hct 21.9 L MCV MCH MCHC RDW 16.6 H Plt Count Lymph % (Auto) [place] % (Auto) 11.5 H Lymph # [place] # 1.1 H Baso # Seg Neutrophils % Seg Neuts % (Manual) Lymphocytes % (Manual) Monocytes % (Manual) Eosinophils % (Manual) Basophils % (Manual) Nucleated RBC % Seg Neutrophils # Seg Neutrophils # Man Lymphocytes # (Manual) Monocytes # (Manual) Eosinophils # (Manual) Basophils # (Manual) PT 16.8 H INR 1.37 H Fibrinogen dRVVT Confirm Interp Factor V Activity POC ABG pH POC ABG pCO2 POC ABG pO2 ABG pO2 ABG HCO3 ABG Base Excess ABG Hemoglobin Oxyhemoglobin Sodium Potassium 3.5 L Chloride Carbon Dioxide BUN 21 H Creatinine Glucose POC Glucose Lactic Acid Calcium 7.9 L Ionized Calcium Phosphorus Magnesium Direct Bilirubin AST ALT Alkaline Phosphatase Lactate Dehydrogenase Troponin T C-Reactive Protein Total Protein Albumin Prealbumin Triglycerides Cholesterol LDL Cholesterol Direct HDL Cholesterol 25-OH Vitamin D Total PTH Intact Urine pH Urine WBC (Auto) Urine Creatinine Urine Total Protein Fluid Total Protein Vancomycin Trough Rheumatoid Factor Complement C4 Miscellaneous Test Crossmatch 11/17/16 11/17/16 11/17/16 06:34 11:21 21:22 WBC RBC Hgb Hct MCV MCH MCHC RDW Plt Count Lymph % (Auto) [place] % (Auto) Lymph # [place] # Baso # Seg Neutrophils % Seg Neuts % (Manual) Lymphocytes % (Manual) Monocytes % (Manual) Eosinophils % (Manual) Basophils % (Manual) Nucleated RBC % Seg Neutrophils # Seg Neutrophils # Man Lymphocytes # (Manual) Monocytes # (Manual) Eosinophils # (Manual) Basophils # (Manual) PT INR Fibrinogen dRVVT Confirm Interp Factor V Activity POC ABG pH 7.467 H POC ABG pCO2 POC ABG pO2 73 L ABG pO2 ABG HCO3 ABG Base Excess ABG Hemoglobin Oxyhemoglobin Sodium Potassium Chloride Carbon Dioxide BUN Creatinine Glucose POC Glucose 121 H 119 H Lactic Acid Calcium Ionized Calcium Phosphorus Magnesium Direct Bilirubin AST ALT Alkaline Phosphatase Lactate Dehydrogenase Troponin T C-Reactive Protein Total Protein Albumin Prealbumin Triglycerides Cholesterol LDL Cholesterol Direct HDL Cholesterol 25-OH Vitamin D Total PTH Intact Urine pH Urine WBC (Auto) Urine Creatinine Urine Total Protein Fluid Total Protein Vancomycin Trough Rheumatoid Factor Complement C4 Miscellaneous Test Crossmatch 11/18/16 11/18/16 11/19/16 12:16 17:19 00:00 WBC RBC Hgb Hct MCV MCH MCHC RDW Plt Count Lymph % (Auto) [place] % (Auto) Lymph # [place] # Baso # Seg Neutrophils % Seg Neuts % (Manual) Lymphocytes % (Manual) Monocytes % (Manual) Eosinophils % (Manual) Basophils % (Manual) Nucleated RBC % Seg Neutrophils # Seg Neutrophils # Man Lymphocytes # (Manual) Monocytes # (Manual) Eosinophils # (Manual) Basophils # (Manual) PT INR Fibrinogen dRVVT Confirm Interp Factor V Activity POC ABG pH POC ABG pCO2 POC ABG pO2 ABG pO2 ABG HCO3 ABG Base Excess ABG Hemoglobin Oxyhemoglobin Sodium Potassium Chloride Carbon Dioxide BUN Creatinine Glucose POC Glucose 124 H 162 H 139 H Lactic Acid Calcium Ionized Calcium Phosphorus Magnesium Direct Bilirubin AST ALT Alkaline Phosphatase Lactate Dehydrogenase Troponin T C-Reactive Protein Total Protein Albumin Prealbumin Triglycerides Cholesterol LDL Cholesterol Direct HDL Cholesterol 25-OH Vitamin D Total PTH Intact Urine pH Urine WBC (Auto) Urine Creatinine Urine Total Protein Fluid Total Protein Vancomycin Trough Rheumatoid Factor Complement C4 Miscellaneous Test Crossmatch 11/19/16 11/19/16 11/20/16 05:00 12:43 00:40 WBC RBC Hgb Hct MCV MCH MCHC RDW Plt Count Lymph % (Auto) [place] % (Auto) Lymph # [place] # Baso # Seg Neutrophils % Seg Neuts % (Manual) Lymphocytes % (Manual) Monocytes % (Manual) Eosinophils % (Manual) Basophils % (Manual) Nucleated RBC % Seg Neutrophils # Seg Neutrophils # Man Lymphocytes # (Manual) Monocytes # (Manual) Eosinophils # (Manual) Basophils # (Manual) PT INR Fibrinogen dRVVT Confirm Interp Factor V Activity POC ABG pH POC ABG pCO2 POC ABG pO2 ABG pO2 ABG HCO3 ABG Base Excess ABG Hemoglobin Oxyhemoglobin Sodium Potassium Chloride Carbon Dioxide BUN Creatinine Glucose POC Glucose 110 H 125 H 136 H Lactic Acid Calcium Ionized Calcium Phosphorus Magnesium Direct Bilirubin AST ALT Alkaline Phosphatase Lactate Dehydrogenase Troponin T C-Reactive Protein Total Protein Albumin Prealbumin Triglycerides Cholesterol LDL Cholesterol Direct HDL Cholesterol 25-OH Vitamin D Total PTH Intact Urine pH Urine WBC (Auto) Urine Creatinine Urine Total Protein Fluid Total Protein Vancomycin Trough Rheumatoid Factor Complement C4 Miscellaneous Test Crossmatch 11/20/16 11/20/16 11/20/16 05:00 05:00 05:51 WBC 13.1 H RBC 2.74 L Hgb 7.7 L Hct 23.6 L MCV MCH MCHC RDW 16.9 H Plt Count Lymph % (Auto) [place] % (Auto) 10.8 H Lymph # [place] # 1.4 H Baso # Seg Neutrophils % Seg Neuts % (Manual) Lymphocytes % (Manual) Monocytes % (Manual) Eosinophils % (Manual) Basophils % (Manual) Nucleated RBC % Seg Neutrophils # 7.9 H Seg Neutrophils # Man Lymphocytes # (Manual) Monocytes # (Manual) Eosinophils # (Manual) Basophils # (Manual) PT INR Fibrinogen dRVVT Confirm Interp Factor V Activity POC ABG pH POC ABG pCO2 POC ABG pO2 ABG pO2 ABG HCO3 ABG Base Excess ABG Hemoglobin Oxyhemoglobin Sodium Potassium Chloride Carbon Dioxide BUN 31 H Creatinine 1.8 H Glucose 129 H POC Glucose 133 H Lactic Acid Calcium Ionized Calcium Phosphorus Magnesium Direct Bilirubin AST ALT Alkaline Phosphatase Lactate Dehydrogenase Troponin T C-Reactive Protein Total Protein Albumin Prealbumin Triglycerides Cholesterol LDL Cholesterol Direct HDL Cholesterol 25-OH Vitamin D Total PTH Intact Urine pH Urine WBC (Auto) Urine Creatinine Urine Total Protein Fluid Total Protein Vancomycin Trough Rheumatoid Factor Complement C4 Miscellaneous Test Crossmatch 11/20/16 11/20/16 11/21/16 12:40 18:10 01:20 WBC RBC Hgb Hct MCV MCH MCHC RDW Plt Count Lymph % (Auto) [place] % (Auto) Lymph # [place] # Baso # Seg Neutrophils % Seg Neuts % (Manual) Lymphocytes % (Manual) Monocytes % (Manual) Eosinophils % (Manual) Basophils % (Manual) Nucleated RBC % Seg Neutrophils # Seg Neutrophils # Man Lymphocytes # (Manual) Monocytes # (Manual) Eosinophils # (Manual) Basophils # (Manual) PT INR Fibrinogen dRVVT Confirm Interp Factor V Activity POC ABG pH POC ABG pCO2 POC ABG pO2 ABG pO2 ABG HCO3 ABG Base Excess ABG Hemoglobin Oxyhemoglobin Sodium Potassium Chloride Carbon Dioxide BUN Creatinine Glucose POC Glucose 134 H 138 H 136 H Lactic Acid Calcium Ionized Calcium Phosphorus Magnesium Direct Bilirubin AST ALT Alkaline Phosphatase Lactate Dehydrogenase Troponin T C-Reactive Protein Total Protein Albumin Prealbumin Triglycerides Cholesterol LDL Cholesterol Direct HDL Cholesterol 25-OH Vitamin D Total PTH Intact Urine pH Urine WBC (Auto) Urine Creatinine Urine Total Protein Fluid Total Protein Vancomycin Trough Rheumatoid Factor Complement C4 Miscellaneous Test Crossmatch 11/21/16 11/21/16 11/21/16 07:04 07:45 07:45 WBC 22.0 H RBC 2.91 L Hgb 8.2 L Hct 25.4 L MCV MCH MCHC RDW 17.1 H Plt Count Lymph % (Auto) [place] % (Auto) Lymph # [place] # Baso # Seg Neutrophils % Seg Neuts % (Manual) Lymphocytes % (Manual) 8.0 L Monocytes % (Manual) Eosinophils % (Manual) Basophils % (Manual) Nucleated RBC % Seg Neutrophils # Seg Neutrophils # Man 14.7 H Lymphocytes # (Manual) Monocytes # (Manual) 1.1 H Eosinophils # (Manual) Basophils # (Manual) PT INR Fibrinogen dRVVT Confirm Interp Factor V Activity POC ABG pH POC ABG pCO2 POC ABG pO2 ABG pO2 ABG HCO3 ABG Base Excess ABG Hemoglobin Oxyhemoglobin Sodium Potassium Chloride Carbon Dioxide BUN 42 H Creatinine 2.0 H Glucose POC Glucose 108 H Lactic Acid Calcium Ionized Calcium Phosphorus Magnesium Direct Bilirubin AST ALT Alkaline Phosphatase Lactate Dehydrogenase Troponin T C-Reactive Protein Total Protein Albumin Prealbumin Triglycerides Cholesterol LDL Cholesterol Direct HDL Cholesterol 25-OH Vitamin D Total PTH Intact Urine pH Urine WBC (Auto) Urine Creatinine Urine Total Protein Fluid Total Protein Vancomycin Trough Rheumatoid Factor Complement C4 Miscellaneous Test Crossmatch 11/21/16 11/21/16 11/21/16 08:38 10:09 11:20 WBC RBC Hgb Hct MCV MCH MCHC RDW Plt Count Lymph % (Auto) [place] % (Auto) Lymph # [place] # Baso # Seg Neutrophils % Seg Neuts % (Manual) Lymphocytes % (Manual) Monocytes % (Manual) Eosinophils % (Manual) Basophils % (Manual) Nucleated RBC % Seg Neutrophils # Seg Neutrophils # Man Lymphocytes # (Manual) Monocytes # (Manual) Eosinophils # (Manual) Basophils # (Manual) PT INR Fibrinogen dRVVT Confirm Interp Factor V Activity POC ABG pH 7.346 L POC ABG pCO2 34.4 L POC ABG pO2 314 H ABG pO2 ABG HCO3 ABG Base Excess ABG Hemoglobin Oxyhemoglobin Sodium Potassium Chloride Carbon Dioxide BUN Creatinine Glucose POC Glucose 195 H 153 H Lactic Acid Calcium Ionized Calcium Phosphorus Magnesium Direct Bilirubin AST ALT Alkaline Phosphatase Lactate Dehydrogenase Troponin T C-Reactive Protein Total Protein Albumin Prealbumin Triglycerides Cholesterol LDL Cholesterol Direct HDL Cholesterol 25-OH Vitamin D Total PTH Intact Urine pH Urine WBC (Auto) Urine Creatinine Urine Total Protein Fluid Total Protein Vancomycin Trough Rheumatoid Factor Complement C4 Miscellaneous Test Crossmatch 11/21/16 11/22/16 11/22/16 23:37 04:48 05:00 WBC 29.7 H RBC 2.73 L Hgb 7.5 L Hct 24.2 L MCV MCH 27 L MCHC RDW 17.4 H Plt Count Lymph % (Auto) [place] % (Auto) Lymph # [place] # Baso # Seg Neutrophils % Seg Neuts % (Manual) Lymphocytes % (Manual) 7.0 L Monocytes % (Manual) Eosinophils % (Manual) Basophils % (Manual) Nucleated RBC % Seg Neutrophils # Seg Neutrophils # Man 15.4 H Lymphocytes # (Manual) Monocytes # (Manual) Eosinophils # (Manual) Basophils # (Manual) PT INR Fibrinogen dRVVT Confirm Interp Factor V Activity POC ABG pH POC ABG pCO2 24.6 L POC ABG pO2 189 H ABG pO2 ABG HCO3 ABG Base Excess ABG Hemoglobin Oxyhemoglobin Sodium Potassium Chloride Carbon Dioxide BUN Creatinine Glucose POC Glucose 65 L Lactic Acid Calcium Ionized Calcium Phosphorus Magnesium Direct Bilirubin AST ALT Alkaline Phosphatase Lactate Dehydrogenase Troponin T C-Reactive Protein Total Protein Albumin Prealbumin Triglycerides Cholesterol LDL Cholesterol Direct HDL Cholesterol 25-OH Vitamin D Total PTH Intact Urine pH Urine WBC (Auto) Urine Creatinine Urine Total Protein Fluid Total Protein Vancomycin Trough Rheumatoid Factor Complement C4 Miscellaneous Test Crossmatch 11/22/16 11/23/16 11/23/16 05:00 03:44 04:06 WBC RBC 2.52 L Hgb 7.2 L Hct 21.5 L MCV MCH MCHC RDW 17.1 H Plt Count Lymph % (Auto) [place] % (Auto) 12.4 H Lymph # [place] # 1.4 H Baso # Seg Neutrophils % Seg Neuts % (Manual) Lymphocytes % (Manual) Monocytes % (Manual) Eosinophils % (Manual) Basophils % (Manual) Nucleated RBC % Seg Neutrophils # Seg Neutrophils # Man Lymphocytes # (Manual) Monocytes # (Manual) Eosinophils # (Manual) Basophils # (Manual) PT INR Fibrinogen dRVVT Confirm Interp Factor V Activity POC ABG pH 7.493 H POC ABG pCO2 29.5 L POC ABG pO2 49 L ABG pO2 ABG HCO3 ABG Base Excess ABG Hemoglobin Oxyhemoglobin Sodium 134 L Potassium Chloride 95.9 L Carbon Dioxide 14 L D BUN 51 H Creatinine 2.6 H Glucose POC Glucose Lactic Acid Calcium Ionized Calcium Phosphorus Magnesium Direct Bilirubin AST ALT Alkaline Phosphatase Lactate Dehydrogenase Troponin T C-Reactive Protein Total Protein Albumin Prealbumin Triglycerides Cholesterol LDL Cholesterol Direct HDL Cholesterol 25-OH Vitamin D Total PTH Intact Urine pH Urine WBC (Auto) Urine Creatinine Urine Total Protein Fluid Total Protein Vancomycin Trough Rheumatoid Factor Complement C4 Miscellaneous Test Crossmatch 11/23/16 11/23/16 11/24/16 04:06 11:29 06:39 WBC RBC Hgb Hct MCV MCH MCHC RDW Plt Count Lymph % (Auto) [place] % (Auto) Lymph # [place] # Baso # Seg Neutrophils % Seg Neuts % (Manual) Lymphocytes % (Manual) Monocytes % (Manual) Eosinophils % (Manual) Basophils % (Manual) Nucleated RBC % Seg Neutrophils # Seg Neutrophils # Man Lymphocytes # (Manual) Monocytes # (Manual) Eosinophils # (Manual) Basophils # (Manual) PT INR Fibrinogen dRVVT Confirm Interp Factor V Activity POC ABG pH POC ABG pCO2 POC ABG pO2 ABG pO2 ABG HCO3 ABG Base Excess ABG Hemoglobin Oxyhemoglobin Sodium 136 L Potassium Chloride 95.2 L Carbon Dioxide BUN 60 H Creatinine 2.9 H Glucose POC Glucose 69 L 305 H Lactic Acid Calcium Ionized Calcium Phosphorus Magnesium 1.60 L Direct Bilirubin AST ALT Alkaline Phosphatase Lactate Dehydrogenase Troponin T C-Reactive Protein Total Protein Albumin Prealbumin Triglycerides Cholesterol LDL Cholesterol Direct HDL Cholesterol 25-OH Vitamin D Total PTH Intact Urine pH Urine WBC (Auto) Urine Creatinine Urine Total Protein Fluid Total Protein Vancomycin Trough Rheumatoid Factor Complement C4 Miscellaneous Test Crossmatch 11/24/16 11/24/16 11/24/16 06:43 08:08 08:08 WBC 11.2 H RBC 2.47 L Hgb 6.8 L Hct 20.6 L MCV MCH MCHC RDW 17.0 H Plt Count Lymph % (Auto) [place] % (Auto) 10.3 H Lymph # [place] # 1.2 H Baso # Seg Neutrophils % Seg Neuts % (Manual) Lymphocytes % (Manual) Monocytes % (Manual) Eosinophils % (Manual) Basophils % (Manual) Nucleated RBC % Seg Neutrophils # Seg Neutrophils # Man Lymphocytes # (Manual) Monocytes # (Manual) Eosinophils # (Manual) Basophils # (Manual) PT INR Fibrinogen dRVVT Confirm Interp Factor V Activity POC ABG pH POC ABG pCO2 POC ABG pO2 ABG pO2 ABG HCO3 ABG Base Excess ABG Hemoglobin Oxyhemoglobin Sodium 135 L Potassium Chloride 96.3 L Carbon Dioxide BUN 61 H Creatinine 3.1 H Glucose POC Glucose 62 L Lactic Acid Calcium 8.2 L Ionized Calcium Phosphorus Magnesium Direct Bilirubin AST ALT Alkaline Phosphatase Lactate Dehydrogenase Troponin T C-Reactive Protein Total Protein Albumin Prealbumin Triglycerides Cholesterol LDL Cholesterol Direct HDL Cholesterol 25-OH Vitamin D Total PTH Intact Urine pH Urine WBC (Auto) Urine Creatinine Urine Total Protein Fluid Total Protein Vancomycin Trough Rheumatoid Factor Complement C4 Miscellaneous Test Crossmatch 11/24/16 11/24/16 11/24/16 08:34 11:20 12:41 WBC RBC Hgb Hct MCV MCH MCHC RDW Plt Count Lymph % (Auto) [place] % (Auto) Lymph # [place] # Baso # Seg Neutrophils % Seg Neuts % (Manual) Lymphocytes % (Manual) Monocytes % (Manual) Eosinophils % (Manual) Basophils % (Manual) Nucleated RBC % Seg Neutrophils # Seg Neutrophils # Man Lymphocytes # (Manual) Monocytes # (Manual) Eosinophils # (Manual) Basophils # (Manual) PT INR Fibrinogen dRVVT Confirm Interp Factor V Activity POC ABG pH POC ABG pCO2 POC ABG pO2 ABG pO2 ABG HCO3 ABG Base Excess ABG Hemoglobin Oxyhemoglobin Sodium Potassium Chloride Carbon Dioxide BUN Creatinine Glucose POC Glucose 108 H Lactic Acid Calcium Ionized Calcium Phosphorus Magnesium 1.60 L Direct Bilirubin AST ALT Alkaline Phosphatase Lactate Dehydrogenase Troponin T C-Reactive Protein Total Protein Albumin Prealbumin Triglycerides Cholesterol LDL Cholesterol Direct HDL Cholesterol 25-OH Vitamin D Total PTH Intact Urine pH Urine WBC (Auto) Urine Creatinine Urine Total Protein Fluid Total Protein Vancomycin Trough Rheumatoid Factor Complement C4 Miscellaneous Test Crossmatch See Detail 11/25/16 11/25/16 11/25/16 00:03 04:42 04:42 WBC RBC 3.03 L Hgb 8.6 L Hct 25.3 L MCV MCH MCHC RDW 16.2 H Plt Count Lymph % (Auto) [place] % (Auto) 8.1 H Lymph # [place] # Baso # Seg Neutrophils % 71.3 H Seg Neuts % (Manual) Lymphocytes % (Manual) Monocytes % (Manual) Eosinophils % (Manual) Basophils % (Manual) Nucleated RBC % Seg Neutrophils # Seg Neutrophils # Man Lymphocytes # (Manual) Monocytes # (Manual) Eosinophils # (Manual) Basophils # (Manual) PT INR Fibrinogen dRVVT Confirm Interp Factor V Activity POC ABG pH POC ABG pCO2 POC ABG pO2 ABG pO2 ABG HCO3 ABG Base Excess ABG Hemoglobin Oxyhemoglobin Sodium Potassium Chloride Carbon Dioxide BUN 61 H Creatinine 3.0 H Glucose 102 H POC Glucose 113 H Lactic Acid Calcium 8.2 L Ionized Calcium Phosphorus Magnesium Direct Bilirubin AST ALT Alkaline Phosphatase 142 H Lactate Dehydrogenase Troponin T C-Reactive Protein Total Protein 5.7 L Albumin 1.5 L Prealbumin Triglycerides Cholesterol LDL Cholesterol Direct HDL Cholesterol 25-OH Vitamin D Total PTH Intact Urine pH Urine WBC (Auto) Urine Creatinine Urine Total Protein Fluid Total Protein Vancomycin Trough Rheumatoid Factor Complement C4 Miscellaneous Test Crossmatch 11/25/16 11/25/16 11/25/16 05:12 11:31 14:12 WBC RBC Hgb Hct MCV MCH MCHC RDW Plt Count Lymph % (Auto) [place] % (Auto) Lymph # [place] # Baso # Seg Neutrophils % Seg Neuts % (Manual) Lymphocytes % (Manual) Monocytes % (Manual) Eosinophils % (Manual) Basophils % (Manual) Nucleated RBC % Seg Neutrophils # Seg Neutrophils # Man Lymphocytes # (Manual) Monocytes # (Manual) Eosinophils # (Manual) Basophils # (Manual) PT INR Fibrinogen dRVVT Confirm Interp Factor V Activity POC ABG pH 7.487 H POC ABG pCO2 POC ABG pO2 153 H ABG pO2 ABG HCO3 ABG Base Excess ABG Hemoglobin Oxyhemoglobin Sodium Potassium Chloride Carbon Dioxide BUN Creatinine Glucose POC Glucose 131 H 140 H Lactic Acid Calcium Ionized Calcium Phosphorus Magnesium Direct Bilirubin AST ALT Alkaline Phosphatase Lactate Dehydrogenase Troponin T C-Reactive Protein Total Protein Albumin Prealbumin Triglycerides Cholesterol LDL Cholesterol Direct HDL Cholesterol 25-OH Vitamin D Total PTH Intact Urine pH Urine WBC (Auto) Urine Creatinine Urine Total Protein Fluid Total Protein Vancomycin Trough Rheumatoid Factor Complement C4 Miscellaneous Test Crossmatch 11/25/16 11/26/16 11/26/16 17:23 00:09 05:13 WBC RBC 2.94 L Hgb 8.4 L Hct 24.6 L MCV MCH MCHC RDW 16.4 H Plt Count Lymph % (Auto) [place] % (Auto) 12.3 H Lymph # [place] # 1.1 H Baso # Seg Neutrophils % Seg Neuts % (Manual) Lymphocytes % (Manual) Monocytes % (Manual) Eosinophils % (Manual) Basophils % (Manual) Nucleated RBC % Seg Neutrophils # Seg Neutrophils # Man Lymphocytes # (Manual) Monocytes # (Manual) Eosinophils # (Manual) Basophils # (Manual) PT INR Fibrinogen dRVVT Confirm Interp Factor V Activity POC ABG pH POC ABG pCO2 POC ABG pO2 ABG pO2 ABG HCO3 ABG Base Excess ABG Hemoglobin Oxyhemoglobin Sodium Potassium Chloride Carbon Dioxide BUN Creatinine Glucose POC Glucose 146 H 112 H Lactic Acid Calcium Ionized Calcium Phosphorus Magnesium Direct Bilirubin AST ALT Alkaline Phosphatase Lactate Dehydrogenase Troponin T C-Reactive Protein Total Protein Albumin Prealbumin Triglycerides Cholesterol LDL Cholesterol Direct HDL Cholesterol 25-OH Vitamin D Total PTH Intact Urine pH Urine WBC (Auto) Urine Creatinine Urine Total Protein Fluid Total Protein Vancomycin Trough Rheumatoid Factor Complement C4 Miscellaneous Test Crossmatch 11/26/16 11/26/16 11/26/16 05:13 05:28 11:53 WBC RBC Hgb Hct MCV MCH MCHC RDW Plt Count Lymph % (Auto) [place] % (Auto) Lymph # [place] # Baso # Seg Neutrophils % Seg Neuts % (Manual) Lymphocytes % (Manual) Monocytes % (Manual) Eosinophils % (Manual) Basophils % (Manual) Nucleated RBC % Seg Neutrophils # Seg Neutrophils # Man Lymphocytes # (Manual) Monocytes # (Manual) Eosinophils # (Manual) Basophils # (Manual) PT INR Fibrinogen dRVVT Confirm Interp Factor V Activity POC ABG pH POC ABG pCO2 POC ABG pO2 ABG pO2 ABG HCO3 ABG Base Excess ABG Hemoglobin Oxyhemoglobin Sodium Potassium Chloride 97.8 L Carbon Dioxide BUN 37 H Creatinine 2.0 H Glucose 109 H POC Glucose 117 H 111 H Lactic Acid Calcium 7.9 L Ionized Calcium Phosphorus 1.80 L D Magnesium Direct Bilirubin AST ALT Alkaline Phosphatase Lactate Dehydrogenase Troponin T C-Reactive Protein Total Protein Albumin Prealbumin Triglycerides Cholesterol LDL Cholesterol Direct HDL Cholesterol 25-OH Vitamin D Total PTH Intact Urine pH Urine WBC (Auto) Urine Creatinine Urine Total Protein Fluid Total Protein Vancomycin Trough Rheumatoid Factor Complement C4 Miscellaneous Test Crossmatch 11/26/16 11/27/16 11/27/16 17:14 04:50 06:02 WBC RBC Hgb Hct MCV MCH MCHC RDW Plt Count Lymph % (Auto) [place] % (Auto) Lymph # [place] # Baso # Seg Neutrophils % Seg Neuts % (Manual) Lymphocytes % (Manual) Monocytes % (Manual) Eosinophils % (Manual) Basophils % (Manual) Nucleated RBC % Seg Neutrophils # Seg Neutrophils # Man Lymphocytes # (Manual) Monocytes # (Manual) Eosinophils # (Manual) Basophils # (Manual) PT INR Fibrinogen dRVVT Confirm Interp Factor V Activity POC ABG pH POC ABG pCO2 POC ABG pO2 ABG pO2 75.2 L ABG HCO3 26.4 H ABG Base Excess ABG Hemoglobin 7.6 L Oxyhemoglobin 94.8 L Sodium Potassium Chloride Carbon Dioxide BUN 49 H Creatinine 2.3 H Glucose POC Glucose 115 H Lactic Acid Calcium Ionized Calcium Phosphorus 1.50 L Magnesium Direct Bilirubin AST ALT Alkaline Phosphatase Lactate Dehydrogenase Troponin T C-Reactive Protein Total Protein Albumin Prealbumin Triglycerides Cholesterol LDL Cholesterol Direct HDL Cholesterol 25-OH Vitamin D Total PTH Intact Urine pH Urine WBC (Auto) Urine Creatinine Urine Total Protein Fluid Total Protein Vancomycin Trough Rheumatoid Factor Complement C4 Miscellaneous Test Crossmatch 11/27/16 11/27/16 11/27/16 06:02 11:25 17:25 WBC 11.6 H RBC 2.75 L Hgb 7.6 L Hct 23.4 L MCV MCH MCHC RDW 16.5 H Plt Count Lymph % (Auto) [place] % (Auto) Lymph # [place] # Baso # Seg Neutrophils % Seg Neuts % (Manual) Lymphocytes % (Manual) Monocytes % (Manual) Eosinophils % (Manual) Basophils % (Manual) Nucleated RBC % Seg Neutrophils # Seg Neutrophils # Man Lymphocytes # (Manual) Monocytes # (Manual) Eosinophils # (Manual) Basophils # (Manual) PT INR Fibrinogen dRVVT Confirm Interp Factor V Activity POC ABG pH POC ABG pCO2 POC ABG pO2 ABG pO2 ABG HCO3 ABG Base Excess ABG Hemoglobin Oxyhemoglobin Sodium Potassium Chloride Carbon Dioxide BUN Creatinine Glucose POC Glucose 114 H 126 H Lactic Acid Calcium Ionized Calcium Phosphorus Magnesium Direct Bilirubin AST ALT Alkaline Phosphatase Lactate Dehydrogenase Troponin T C-Reactive Protein Total Protein Albumin Prealbumin Triglycerides Cholesterol LDL Cholesterol Direct HDL Cholesterol 25-OH Vitamin D Total PTH Intact Urine pH Urine WBC (Auto) Urine Creatinine Urine Total Protein Fluid Total Protein Vancomycin Trough Rheumatoid Factor Complement C4 Miscellaneous Test Crossmatch 11/28/16 11/28/16 11/28/16 04:45 05:33 05:44 WBC RBC Hgb Hct MCV MCH MCHC RDW Plt Count Lymph % (Auto) [place] % (Auto) Lymph # [place] # Baso # Seg Neutrophils % Seg Neuts % (Manual) Lymphocytes % (Manual) Monocytes % (Manual) Eosinophils % (Manual) Basophils % (Manual) Nucleated RBC % Seg Neutrophils # Seg Neutrophils # Man Lymphocytes # (Manual) Monocytes # (Manual) Eosinophils # (Manual) Basophils # (Manual) PT INR Fibrinogen dRVVT Confirm Interp Factor V Activity POC ABG pH POC ABG pCO2 POC ABG pO2 ABG pO2 99.3 H ABG HCO3 ABG Base Excess ABG Hemoglobin 8.3 L Oxyhemoglobin Sodium Potassium Chloride Carbon Dioxide BUN 63 H Creatinine 2.4 H Glucose 102 H POC Glucose 108 H Lactic Acid Calcium Ionized Calcium Phosphorus 1.80 L Magnesium Direct Bilirubin AST ALT Alkaline Phosphatase Lactate Dehydrogenase Troponin T C-Reactive Protein Total Protein Albumin Prealbumin Triglycerides Cholesterol LDL Cholesterol Direct HDL Cholesterol 25-OH Vitamin D Total PTH Intact Urine pH Urine WBC (Auto) Urine Creatinine Urine Total Protein Fluid Total Protein Vancomycin Trough Rheumatoid Factor Complement C4 Miscellaneous Test Crossmatch 11/28/16 11/28/16 11/28/16 12:31 16:09 23:46 WBC RBC Hgb Hct MCV MCH MCHC RDW Plt Count Lymph % (Auto) [place] % (Auto) Lymph # [place] # Baso # Seg Neutrophils % Seg Neuts % (Manual) Lymphocytes % (Manual) Monocytes % (Manual) Eosinophils % (Manual) Basophils % (Manual) Nucleated RBC % Seg Neutrophils # Seg Neutrophils # Man Lymphocytes # (Manual) Monocytes # (Manual) Eosinophils # (Manual) Basophils # (Manual) PT INR Fibrinogen dRVVT Confirm Interp Factor V Activity POC ABG pH POC ABG pCO2 POC ABG pO2 ABG pO2 ABG HCO3 ABG Base Excess ABG Hemoglobin Oxyhemoglobin Sodium Potassium Chloride Carbon Dioxide BUN Creatinine Glucose POC Glucose 126 H 111 H 119 H Lactic Acid Calcium Ionized Calcium Phosphorus Magnesium Direct Bilirubin AST ALT Alkaline Phosphatase Lactate Dehydrogenase Troponin T C-Reactive Protein Total Protein Albumin Prealbumin Triglycerides Cholesterol LDL Cholesterol Direct HDL Cholesterol 25-OH Vitamin D Total PTH Intact Urine pH Urine WBC (Auto) Urine Creatinine Urine Total Protein Fluid Total Protein Vancomycin Trough Rheumatoid Factor Complement C4 Miscellaneous Test Crossmatch 11/29/16 11/29/16 11/29/16 03:33 04:52 05:10 WBC RBC Hgb Hct MCV MCH MCHC RDW Plt Count Lymph % (Auto) [place] % (Auto) Lymph # [place] # Baso # Seg Neutrophils % Seg Neuts % (Manual) Lymphocytes % (Manual) Monocytes % (Manual) Eosinophils % (Manual) Basophils % (Manual) Nucleated RBC % Seg Neutrophils # Seg Neutrophils # Man Lymphocytes # (Manual) Monocytes # (Manual) Eosinophils # (Manual) Basophils # (Manual) PT INR Fibrinogen dRVVT Confirm Interp Factor V Activity POC ABG pH POC ABG pCO2 POC ABG pO2 ABG pO2 ABG HCO3 ABG Base Excess ABG Hemoglobin 7.0 L Oxyhemoglobin 94.9 L Sodium Potassium Chloride Carbon Dioxide BUN 73 H Creatinine 2.7 H Glucose POC Glucose 108 H Lactic Acid Calcium Ionized Calcium Phosphorus Magnesium Direct Bilirubin AST ALT Alkaline Phosphatase Lactate Dehydrogenase Troponin T C-Reactive Protein Total Protein Albumin Prealbumin Triglycerides Cholesterol LDL Cholesterol Direct HDL Cholesterol 25-OH Vitamin D Total PTH Intact Urine pH Urine WBC (Auto) Urine Creatinine Urine Total Protein Fluid Total Protein Vancomycin Trough Rheumatoid Factor Complement C4 Miscellaneous Test Crossmatch 11/29/16 11/29/16 11/29/16 12:16 18:05 23:46 WBC RBC Hgb Hct MCV MCH MCHC RDW Plt Count Lymph % (Auto) [place] % (Auto) Lymph # [place] # Baso # Seg Neutrophils % Seg Neuts % (Manual) Lymphocytes % (Manual) Monocytes % (Manual) Eosinophils % (Manual) Basophils % (Manual) Nucleated RBC % Seg Neutrophils # Seg Neutrophils # Man Lymphocytes # (Manual) Monocytes # (Manual) Eosinophils # (Manual) Basophils # (Manual) PT INR Fibrinogen dRVVT Confirm Interp Factor V Activity POC ABG pH POC ABG pCO2 POC ABG pO2 ABG pO2 ABG HCO3 ABG Base Excess ABG Hemoglobin Oxyhemoglobin Sodium Potassium Chloride Carbon Dioxide BUN Creatinine Glucose POC Glucose 133 H 146 H 141 H Lactic Acid Calcium Ionized Calcium Phosphorus Magnesium Direct Bilirubin AST ALT Alkaline Phosphatase Lactate Dehydrogenase Troponin T C-Reactive Protein Total Protein Albumin Prealbumin Triglycerides Cholesterol LDL Cholesterol Direct HDL Cholesterol 25-OH Vitamin D Total PTH Intact Urine pH Urine WBC (Auto) Urine Creatinine Urine Total Protein Fluid Total Protein Vancomycin Trough Rheumatoid Factor Complement C4 Miscellaneous Test Crossmatch 11/30/16 11/30/16 11/30/16 04:17 04:17 04:32 WBC 12.0 H RBC 2.80 L Hgb 7.8 L Hct 23.6 L MCV MCH MCHC RDW 16.6 H Plt Count Lymph % (Auto) [place] % (Auto) 11.3 H Lymph # [place] # 1.4 H Baso # Seg Neutrophils % Seg Neuts % (Manual) Lymphocytes % (Manual) Monocytes % (Manual) Eosinophils % (Manual) Basophils % (Manual) Nucleated RBC % Seg Neutrophils # 8.2 H Seg Neutrophils # Man Lymphocytes # (Manual) Monocytes # (Manual) Eosinophils # (Manual) Basophils # (Manual) PT INR Fibrinogen dRVVT Confirm Interp Factor V Activity POC ABG pH POC ABG pCO2 POC ABG pO2 ABG pO2 ABG HCO3 ABG Base Excess ABG Hemoglobin Oxyhemoglobin Sodium 169 H* D Potassium 5.1 H Chloride 121.5 H Carbon Dioxide BUN 34 H Creatinine 1.3 H D Glucose 133 H POC Glucose 131 H Lactic Acid Calcium 10.3 H Ionized Calcium Phosphorus Magnesium Direct Bilirubin AST ALT Alkaline Phosphatase Lactate Dehydrogenase Troponin T C-Reactive Protein Total Protein Albumin Prealbumin Triglycerides Cholesterol LDL Cholesterol Direct HDL Cholesterol 25-OH Vitamin D Total PTH Intact Urine pH Urine WBC (Auto) Urine Creatinine Urine Total Protein Fluid Total Protein Vancomycin Trough Rheumatoid Factor Complement C4 Miscellaneous Test Crossmatch 11/30/16 11/30/16 11/30/16 05:45 11:10 17:26 WBC RBC Hgb Hct MCV MCH MCHC RDW Plt Count Lymph % (Auto) [place] % (Auto) Lymph # [place] # Baso # Seg Neutrophils % Seg Neuts % (Manual) Lymphocytes % (Manual) Monocytes % (Manual) Eosinophils % (Manual) Basophils % (Manual) Nucleated RBC % Seg Neutrophils # Seg Neutrophils # Man Lymphocytes # (Manual) Monocytes # (Manual) Eosinophils # (Manual) Basophils # (Manual) PT INR Fibrinogen dRVVT Confirm Interp Factor V Activity POC ABG pH POC ABG pCO2 POC ABG pO2 ABG pO2 ABG HCO3 ABG Base Excess ABG Hemoglobin Oxyhemoglobin Sodium Potassium Chloride Carbon Dioxide BUN 45 H Creatinine 1.6 H Glucose 131 H POC Glucose 146 H 134 H Lactic Acid Calcium Ionized Calcium Phosphorus Magnesium Direct Bilirubin AST ALT Alkaline Phosphatase Lactate Dehydrogenase Troponin T C-Reactive Protein Total Protein Albumin Prealbumin Triglycerides Cholesterol LDL Cholesterol Direct HDL Cholesterol 25-OH Vitamin D Total PTH Intact Urine pH Urine WBC (Auto) Urine Creatinine Urine Total Protein Fluid Total Protein Vancomycin Trough Rheumatoid Factor Complement C4 Miscellaneous Test Crossmatch 11/30/16 12/01/16 12/01/16 23:35 00:06 03:35 WBC RBC Hgb Hct MCV MCH MCHC RDW Plt Count Lymph % (Auto) [place] % (Auto) Lymph # [place] # Baso # Seg Neutrophils % Seg Neuts % (Manual) Lymphocytes % (Manual) Monocytes % (Manual) Eosinophils % (Manual) Basophils % (Manual) Nucleated RBC % Seg Neutrophils # Seg Neutrophils # Man Lymphocytes # (Manual) Monocytes # (Manual) Eosinophils # (Manual) Basophils # (Manual) PT INR Fibrinogen dRVVT Confirm Interp Factor V Activity POC ABG pH POC ABG pCO2 POC ABG pO2 ABG pO2 ABG HCO3 ABG Base Excess ABG Hemoglobin 6.9 L Oxyhemoglobin Sodium Potassium Chloride Carbon Dioxide BUN 58 H Creatinine 1.8 H Glucose 146 H POC Glucose 151 H Lactic Acid Calcium Ionized Calcium Phosphorus Magnesium Direct Bilirubin AST ALT Alkaline Phosphatase Lactate Dehydrogenase Troponin T C-Reactive Protein Total Protein Albumin Prealbumin Triglycerides Cholesterol LDL Cholesterol Direct HDL Cholesterol 25-OH Vitamin D Total PTH Intact Urine pH Urine WBC (Auto) Urine Creatinine Urine Total Protein Fluid Total Protein Vancomycin Trough Rheumatoid Factor Complement C4 Miscellaneous Test Crossmatch 12/01/16 12/01/16 12/01/16 03:35 05:47 11:52 WBC 12.3 H RBC 2.82 L Hgb 7.8 L Hct 23.7 L MCV MCH MCHC RDW 16.7 H Plt Count Lymph % (Auto) [place] % (Auto) 9.8 H Lymph # [place] # 1.2 H Baso # Seg Neutrophils % Seg Neuts % (Manual) Lymphocytes % (Manual) Monocytes % (Manual) Eosinophils % (Manual) Basophils % (Manual) Nucleated RBC % Seg Neutrophils # 8.4 H Seg Neutrophils # Man Lymphocytes # (Manual) Monocytes # (Manual) Eosinophils # (Manual) Basophils # (Manual) PT INR Fibrinogen dRVVT Confirm Interp Factor V Activity POC ABG pH POC ABG pCO2 POC ABG pO2 ABG pO2 ABG HCO3 ABG Base Excess ABG Hemoglobin Oxyhemoglobin Sodium Potassium Chloride Carbon Dioxide BUN Creatinine Glucose POC Glucose 152 H 152 H Lactic Acid Calcium Ionized Calcium Phosphorus Magnesium Direct Bilirubin AST ALT Alkaline Phosphatase Lactate Dehydrogenase Troponin T C-Reactive Protein Total Protein Albumin Prealbumin Triglycerides Cholesterol LDL Cholesterol Direct HDL Cholesterol 25-OH Vitamin D Total PTH Intact Urine pH Urine WBC (Auto) Urine Creatinine Urine Total Protein Fluid Total Protein Vancomycin Trough Rheumatoid Factor Complement C4 Miscellaneous Test Crossmatch 10/12/17 10/12/17 10/13/17 17:40 23:41 05:00 WBC RBC Hgb Hct MCV MCH MCHC RDW Plt Count Lymph % (Auto) [place] % (Auto) Lymph # [place] # Baso # Seg Neutrophils % Seg Neuts % (Manual) Lymphocytes % (Manual) Monocytes % (Manual) Eosinophils % (Manual) Basophils % (Manual) Nucleated RBC % Seg Neutrophils # Seg Neutrophils # Man Lymphocytes # (Manual) Monocytes # (Manual) Eosinophils # (Manual) Basophils # (Manual) PT INR Fibrinogen dRVVT Confirm Interp Factor V Activity POC ABG pH POC ABG pCO2 POC ABG pO2 ABG pO2 ABG HCO3 ABG Base Excess ABG Hemoglobin Oxyhemoglobin Sodium Potassium Chloride Carbon Dioxide BUN 45 H Creatinine Glucose 115 H POC Glucose 140 H 144 H Lactic Acid Calcium Ionized Calcium Phosphorus Magnesium Direct Bilirubin AST ALT Alkaline Phosphatase Lactate Dehydrogenase Troponin T C-Reactive Protein Total Protein Albumin Prealbumin Triglycerides Cholesterol LDL Cholesterol Direct HDL Cholesterol 25-OH Vitamin D Total PTH Intact Urine pH Urine WBC (Auto) Urine Creatinine Urine Total Protein Fluid Total Protein Vancomycin Trough Rheumatoid Factor Complement C4 Miscellaneous Test Crossmatch 12/02/16 12/02/16 12/02/16 05:31 11:20 17:38 WBC RBC Hgb Hct MCV MCH MCHC RDW Plt Count Lymph % (Auto) [place] % (Auto) Lymph # [place] # Baso # Seg Neutrophils % Seg Neuts % (Manual) Lymphocytes % (Manual) Monocytes % (Manual) Eosinophils % (Manual) Basophils % (Manual) Nucleated RBC % Seg Neutrophils # Seg Neutrophils # Man Lymphocytes # (Manual) Monocytes # (Manual) Eosinophils # (Manual) Basophils # (Manual) PT INR Fibrinogen dRVVT Confirm Interp Factor V Activity POC ABG pH POC ABG pCO2 POC ABG pO2 ABG pO2 ABG HCO3 ABG Base Excess ABG Hemoglobin Oxyhemoglobin Sodium Potassium Chloride Carbon Dioxide BUN Creatinine Glucose POC Glucose 136 H 177 H 139 H Lactic Acid Calcium Ionized Calcium Phosphorus Magnesium Direct Bilirubin AST ALT Alkaline Phosphatase Lactate Dehydrogenase Troponin T C-Reactive Protein Total Protein Albumin Prealbumin Triglycerides Cholesterol LDL Cholesterol Direct HDL Cholesterol 25-OH Vitamin D Total PTH Intact Urine pH Urine WBC (Auto) Urine Creatinine Urine Total Protein Fluid Total Protein Vancomycin Trough Rheumatoid Factor Complement C4 Miscellaneous Test Crossmatch 12/02/16 12/03/16 12/03/16 23:43 04:00 04:00 WBC 20.4 H RBC 2.74 L Hgb 7.4 L Hct 23.6 L MCV MCH 27 L MCHC RDW 17.1 H Plt Count Lymph % (Auto) [place] % (Auto) Lymph # [place] # Baso # Seg Neutrophils % Seg Neuts % (Manual) 31.0 L Lymphocytes % (Manual) Monocytes % (Manual) Eosinophils % (Manual) Basophils % (Manual) Nucleated RBC % Seg Neutrophils # Seg Neutrophils # Man Lymphocytes # (Manual) Monocytes # (Manual) Eosinophils # (Manual) Basophils # (Manual) PT INR Fibrinogen dRVVT Confirm Interp Factor V Activity POC ABG pH POC ABG pCO2 POC ABG pO2 ABG pO2 ABG HCO3 ABG Base Excess ABG Hemoglobin Oxyhemoglobin Sodium Potassium Chloride Carbon Dioxide BUN 61 H Creatinine 1.6 H Glucose 119 H POC Glucose 158 H Lactic Acid Calcium Ionized Calcium Phosphorus Magnesium Direct Bilirubin AST ALT Alkaline Phosphatase Lactate Dehydrogenase Troponin T C-Reactive Protein Total Protein Albumin Prealbumin Triglycerides Cholesterol LDL Cholesterol Direct HDL Cholesterol 25-OH Vitamin D Total PTH Intact Urine pH Urine WBC (Auto) Urine Creatinine Urine Total Protein Fluid Total Protein Vancomycin Trough Rheumatoid Factor Complement C4 Miscellaneous Test Crossmatch 12/03/16 12/03/16 12/03/16 05:02 12:11 18:16 WBC RBC Hgb Hct MCV MCH MCHC RDW Plt Count Lymph % (Auto) [place] % (Auto) Lymph # [place] # Baso # Seg Neutrophils % Seg Neuts % (Manual) Lymphocytes % (Manual) Monocytes % (Manual) Eosinophils % (Manual) Basophils % (Manual) Nucleated RBC % Seg Neutrophils # Seg Neutrophils # Man Lymphocytes # (Manual) Monocytes # (Manual) Eosinophils # (Manual) Basophils # (Manual) PT INR Fibrinogen dRVVT Confirm Interp Factor V Activity POC ABG pH POC ABG pCO2 POC ABG pO2 ABG pO2 ABG HCO3 ABG Base Excess ABG Hemoglobin Oxyhemoglobin Sodium Potassium Chloride Carbon Dioxide BUN Creatinine Glucose POC Glucose 146 H 157 H 124 H Lactic Acid Calcium Ionized Calcium Phosphorus Magnesium Direct Bilirubin AST ALT Alkaline Phosphatase Lactate Dehydrogenase Troponin T C-Reactive Protein Total Protein Albumin Prealbumin Triglycerides Cholesterol LDL Cholesterol Direct HDL Cholesterol 25-OH Vitamin D Total PTH Intact Urine pH Urine WBC (Auto) Urine Creatinine Urine Total Protein Fluid Total Protein Vancomycin Trough Rheumatoid Factor Complement C4 Miscellaneous Test Crossmatch 12/03/16 12/04/16 12/04/16 23:41 04:00 04:45 WBC RBC Hgb Hct MCV MCH MCHC RDW Plt Count Lymph % (Auto) [place] % (Auto) Lymph # [place] # Baso # Seg Neutrophils % Seg Neuts % (Manual) Lymphocytes % (Manual) Monocytes % (Manual) Eosinophils % (Manual) Basophils % (Manual) Nucleated RBC % Seg Neutrophils # Seg Neutrophils # Man Lymphocytes # (Manual) Monocytes # (Manual) Eosinophils # (Manual) Basophils # (Manual) PT INR Fibrinogen dRVVT Confirm Interp Factor V Activity POC ABG pH POC ABG pCO2 POC ABG pO2 ABG pO2 ABG HCO3 ABG Base Excess ABG Hemoglobin Oxyhemoglobin Sodium Potassium Chloride Carbon Dioxide BUN 76 H Creatinine 1.6 H Glucose POC Glucose 130 H 136 H Lactic Acid Calcium Ionized Calcium Phosphorus Magnesium Direct Bilirubin AST ALT Alkaline Phosphatase 155 H Lactate Dehydrogenase Troponin T C-Reactive Protein Total Protein 5.5 L Albumin 1.5 L Prealbumin Triglycerides Cholesterol LDL Cholesterol Direct HDL Cholesterol 25-OH Vitamin D Total PTH Intact Urine pH Urine WBC (Auto) Urine Creatinine Urine Total Protein Fluid Total Protein Vancomycin Trough Rheumatoid Factor Complement C4 Miscellaneous Test Crossmatch 12/04/16 12/04/16 12/05/16 12:08 17:23 00:10 WBC RBC Hgb Hct MCV MCH MCHC RDW Plt Count Lymph % (Auto) [place] % (Auto) Lymph # [place] # Baso # Seg Neutrophils % Seg Neuts % (Manual) Lymphocytes % (Manual) Monocytes % (Manual) Eosinophils % (Manual) Basophils % (Manual) Nucleated RBC % Seg Neutrophils # Seg Neutrophils # Man Lymphocytes # (Manual) Monocytes # (Manual) Eosinophils # (Manual) Basophils # (Manual) PT INR Fibrinogen dRVVT Confirm Interp Factor V Activity POC ABG pH POC ABG pCO2 POC ABG pO2 ABG pO2 ABG HCO3 ABG Base Excess ABG Hemoglobin Oxyhemoglobin Sodium Potassium Chloride Carbon Dioxide BUN Creatinine Glucose POC Glucose 114 H 129 H 124 H Lactic Acid Calcium Ionized Calcium Phosphorus Magnesium Direct Bilirubin AST ALT Alkaline Phosphatase Lactate Dehydrogenase Troponin T C-Reactive Protein Total Protein Albumin Prealbumin Triglycerides Cholesterol LDL Cholesterol Direct HDL Cholesterol 25-OH Vitamin D Total PTH Intact Urine pH Urine WBC (Auto) Urine Creatinine Urine Total Protein Fluid Total Protein Vancomycin Trough Rheumatoid Factor Complement C4 Miscellaneous Test Crossmatch 12/05/16 12/05/16 12/05/16 05:00 05:00 05:18 WBC RBC Hgb Hct MCV MCH MCHC RDW Plt Count Lymph % (Auto) [place] % (Auto) Lymph # [place] # Baso # Seg Neutrophils % Seg Neuts % (Manual) Lymphocytes % (Manual) Monocytes % (Manual) Eosinophils % (Manual) Basophils % (Manual) Nucleated RBC % Seg Neutrophils # Seg Neutrophils # Man Lymphocytes # (Manual) Monocytes # (Manual) Eosinophils # (Manual) Basophils # (Manual) PT INR Fibrinogen dRVVT Confirm Interp Factor V Activity POC ABG pH POC ABG pCO2 POC ABG pO2 ABG pO2 ABG HCO3 ABG Base Excess ABG Hemoglobin Oxyhemoglobin Sodium Potassium Chloride Carbon Dioxide 21 L BUN 85 H Creatinine 1.9 H Glucose 131 H POC Glucose 154 H Lactic Acid Calcium Ionized Calcium Phosphorus Magnesium Direct Bilirubin AST ALT Alkaline Phosphatase Lactate Dehydrogenase Troponin T C-Reactive Protein 19.30 H Total Protein Albumin Prealbumin Triglycerides Cholesterol LDL Cholesterol Direct HDL Cholesterol 25-OH Vitamin D Total PTH Intact Urine pH Urine WBC (Auto) Urine Creatinine Urine Total Protein Fluid Total Protein Vancomycin Trough Rheumatoid Factor Complement C4 Miscellaneous Test Crossmatch 12/05/16 12/05/16 12/05/16 11:43 17:46 23:25 WBC RBC Hgb Hct MCV MCH MCHC RDW Plt Count Lymph % (Auto) [place] % (Auto) Lymph # [place] # Baso # Seg Neutrophils % Seg Neuts % (Manual) Lymphocytes % (Manual) Monocytes % (Manual) Eosinophils % (Manual) Basophils % (Manual) Nucleated RBC % Seg Neutrophils # Seg Neutrophils # Man Lymphocytes # (Manual) Monocytes # (Manual) Eosinophils # (Manual) Basophils # (Manual) PT INR Fibrinogen dRVVT Confirm Interp Factor V Activity POC ABG pH POC ABG pCO2 POC ABG pO2 ABG pO2 ABG HCO3 ABG Base Excess ABG Hemoglobin Oxyhemoglobin Sodium Potassium Chloride Carbon Dioxide BUN Creatinine Glucose POC Glucose 117 H 113 H 111 H Lactic Acid Calcium Ionized Calcium Phosphorus Magnesium Direct Bilirubin AST ALT Alkaline Phosphatase Lactate Dehydrogenase Troponin T C-Reactive Protein Total Protein Albumin Prealbumin Triglycerides Cholesterol LDL Cholesterol Direct HDL Cholesterol 25-OH Vitamin D Total PTH Intact Urine pH Urine WBC (Auto) Urine Creatinine Urine Total Protein Fluid Total Protein Vancomycin Trough Rheumatoid Factor Complement C4 Miscellaneous Test Crossmatch 12/05/16 12/06/16 12/06/16 Unknown 04:58 06:00 WBC RBC Hgb Hct MCV MCH MCHC RDW Plt Count Lymph % (Auto) [place] % (Auto) Lymph # [place] # Baso # Seg Neutrophils % Seg Neuts % (Manual) Lymphocytes % (Manual) Monocytes % (Manual) Eosinophils % (Manual) Basophils % (Manual) Nucleated RBC % Seg Neutrophils # Seg Neutrophils # Man Lymphocytes # (Manual) Monocytes # (Manual) Eosinophils # (Manual) Basophils # (Manual) PT INR Fibrinogen dRVVT Confirm Interp Factor V Activity POC ABG pH POC ABG pCO2 POC ABG pO2 ABG pO2 75.2 L ABG HCO3 ABG Base Excess -3.4 L ABG Hemoglobin 7.4 L Oxyhemoglobin 94.5 L Sodium Potassium Chloride Carbon Dioxide 20 L BUN 99 H Creatinine 2.1 H Glucose 126 H POC Glucose 145 H Lactic Acid Calcium Ionized Calcium Phosphorus 4.80 H Magnesium Direct Bilirubin AST ALT Alkaline Phosphatase Lactate Dehydrogenase Troponin T C-Reactive Protein Total Protein Albumin Prealbumin Triglycerides Cholesterol LDL Cholesterol Direct HDL Cholesterol 25-OH Vitamin D Total PTH Intact Urine pH Urine WBC (Auto) Urine Creatinine Urine Total Protein Fluid Total Protein Vancomycin Trough Rheumatoid Factor Complement C4 Miscellaneous Test Crossmatch 12/06/16 12/06/16 12/06/16 06:46 11:54 17:55 WBC RBC Hgb 8.3 L Hct 26.4 L MCV MCH MCHC RDW Plt Count Lymph % (Auto) [place] % (Auto) Lymph # [place] # Baso # Seg Neutrophils % Seg Neuts % (Manual) Lymphocytes % (Manual) Monocytes % (Manual) Eosinophils % (Manual) Basophils % (Manual) Nucleated RBC % Seg Neutrophils # Seg Neutrophils # Man Lymphocytes # (Manual) Monocytes # (Manual) Eosinophils # (Manual) Basophils # (Manual) PT INR Fibrinogen dRVVT Confirm Interp Factor V Activity POC ABG pH POC ABG pCO2 POC ABG pO2 ABG pO2 ABG HCO3 ABG Base Excess ABG Hemoglobin Oxyhemoglobin Sodium Potassium Chloride Carbon Dioxide BUN Creatinine Glucose POC Glucose 126 H 157 H Lactic Acid Calcium Ionized Calcium Phosphorus Magnesium Direct Bilirubin AST ALT Alkaline Phosphatase Lactate Dehydrogenase Troponin T C-Reactive Protein Total Protein Albumin Prealbumin Triglycerides Cholesterol LDL Cholesterol Direct HDL Cholesterol 25-OH Vitamin D Total PTH Intact Urine pH Urine WBC (Auto) Urine Creatinine Urine Total Protein Fluid Total Protein Vancomycin Trough Rheumatoid Factor Complement C4 Miscellaneous Test Crossmatch 12/06/16 12/07/16 12/07/16 23:59 05:34 06:30 WBC RBC Hgb Hct MCV MCH MCHC RDW Plt Count Lymph % (Auto) [place] % (Auto) Lymph # [place] # Baso # Seg Neutrophils % Seg Neuts % (Manual) Lymphocytes % (Manual) Monocytes % (Manual) Eosinophils % (Manual) Basophils % (Manual) Nucleated RBC % Seg Neutrophils # Seg Neutrophils # Man Lymphocytes # (Manual) Monocytes # (Manual) Eosinophils # (Manual) Basophils # (Manual) PT INR Fibrinogen dRVVT Confirm Interp Factor V Activity POC ABG pH POC ABG pCO2 POC ABG pO2 ABG pO2 ABG HCO3 ABG Base Excess ABG Hemoglobin Oxyhemoglobin Sodium Potassium Chloride Carbon Dioxide BUN 67 H Creatinine 1.4 H Glucose 126 H POC Glucose 129 H 129 H Lactic Acid Calcium Ionized Calcium Phosphorus Magnesium Direct Bilirubin AST ALT Alkaline Phosphatase Lactate Dehydrogenase Troponin T C-Reactive Protein Total Protein Albumin Prealbumin Triglycerides Cholesterol LDL Cholesterol Direct HDL Cholesterol 25-OH Vitamin D Total PTH Intact Urine pH Urine WBC (Auto) Urine Creatinine Urine Total Protein Fluid Total Protein Vancomycin Trough Rheumatoid Factor Complement C4 Miscellaneous Test Crossmatch 12/07/16 12/07/16 12/07/16 06:30 08:00 09:45 WBC 18.8 H RBC 2.52 L Hgb 6.9 L 6.8 L Hct 21.2 L 21.1 L MCV MCH 27 L MCHC RDW 18.0 H Plt Count Lymph % (Auto) [place] % (Auto) 9.9 H Lymph # [place] # 1.9 H Baso # Seg Neutrophils % 71.8 H Seg Neuts % (Manual) Lymphocytes % (Manual) Monocytes % (Manual) Eosinophils % (Manual) Basophils % (Manual) Nucleated RBC % Seg Neutrophils # 13.5 H Seg Neutrophils # Man Lymphocytes # (Manual) Monocytes # (Manual) Eosinophils # (Manual) Basophils # (Manual) PT INR Fibrinogen dRVVT Confirm Interp Factor V Activity POC ABG pH POC ABG pCO2 POC ABG pO2 ABG pO2 ABG HCO3 ABG Base Excess ABG Hemoglobin Oxyhemoglobin Sodium Potassium Chloride Carbon Dioxide BUN Creatinine Glucose POC Glucose Lactic Acid Calcium Ionized Calcium Phosphorus Magnesium Direct Bilirubin AST ALT Alkaline Phosphatase Lactate Dehydrogenase Troponin T C-Reactive Protein Total Protein Albumin Prealbumin Triglycerides Cholesterol LDL Cholesterol Direct HDL Cholesterol 25-OH Vitamin D Total PTH Intact Urine pH Urine WBC (Auto) Urine Creatinine Urine Total Protein Fluid Total Protein Vancomycin Trough Rheumatoid Factor Complement C4 Miscellaneous Test Crossmatch See Detail 12/07/16 12/07/1612/07/17 11:44 18:19 23:59 WBC RBC Hgb Hct MCV MCH MCHC RDW Plt Count Lymph % (Auto) [place] % (Auto) Lymph # [place] # Baso # Seg Neutrophils % Seg Neuts % (Manual) Lymphocytes % (Manual) Monocytes % (Manual) Eosinophils % (Manual) Basophils % (Manual) Nucleated RBC % Seg Neutrophils # Seg Neutrophils # Man Lymphocytes # (Manual) Monocytes # (Manual) Eosinophils # (Manual) Basophils # (Manual) PT INR Fibrinogen dRVVT Confirm Interp Factor V Activity POC ABG pH POC ABG pCO2 POC ABG pO2 ABG pO2 ABG HCO3 ABG Base Excess ABG Hemoglobin Oxyhemoglobin Sodium Potassium Chloride Carbon Dioxide BUN Creatinine Glucose POC Glucose 137 H 138 H 133 H Lactic Acid Calcium Ionized Calcium Phosphorus Magnesium Direct Bilirubin AST ALT Alkaline Phosphatase Lactate Dehydrogenase Troponin T C-Reactive Protein Total Protein Albumin Prealbumin Triglycerides Cholesterol LDL Cholesterol Direct HDL Cholesterol 25-OH Vitamin D Total PTH Intact Urine pH Urine WBC (Auto) Urine Creatinine Urine Total Protein Fluid Total Protein Vancomycin Trough Rheumatoid Factor Complement C4 Miscellaneous Test Crossmatch 12/08/16 12/08/16 12/08/16 05:25 05:30 05:30 WBC 23.8 H RBC 2.88 L Hgb 8.1 L Hct 24.3 L MCV MCH MCHC RDW 16.7 H Plt Count Lymph % (Auto) [place] % (Auto) Lymph # [place] # Baso # Seg Neutrophils % Seg Neuts % (Manual) 76.0 H Lymphocytes % (Manual) 9.0 L Monocytes % (Manual) 9.0 H Eosinophils % (Manual) Basophils % (Manual) Nucleated RBC % Seg Neutrophils # Seg Neutrophils # Man 18.1 H Lymphocytes # (Manual) Monocytes # (Manual) 2.1 H Eosinophils # (Manual) Basophils # (Manual) PT INR Fibrinogen dRVVT Confirm Interp Factor V Activity POC ABG pH POC ABG pCO2 POC ABG pO2 ABG pO2 ABG HCO3 ABG Base Excess ABG Hemoglobin Oxyhemoglobin Sodium Potassium Chloride Carbon Dioxide 21 L BUN 76 H Creatinine 1.6 H Glucose 133 H POC Glucose 177 H Lactic Acid Calcium Ionized Calcium Phosphorus Magnesium Direct Bilirubin AST ALT Alkaline Phosphatase Lactate Dehydrogenase Troponin T C-Reactive Protein Total Protein Albumin Prealbumin Triglycerides Cholesterol LDL Cholesterol Direct HDL Cholesterol 25-OH Vitamin D Total PTH Intact Urine pH Urine WBC (Auto) Urine Creatinine Urine Total Protein Fluid Total Protein Vancomycin Trough Rheumatoid Factor Complement C4 Miscellaneous Test Crossmatch 12/08/16 12/08/16 12/09/16 11:45 18:00 00:00 WBC RBC Hgb Hct MCV MCH MCHC RDW Plt Count Lymph % (Auto) [place] % (Auto) Lymph # [place] # Baso # Seg Neutrophils % Seg Neuts % (Manual) Lymphocytes % (Manual) Monocytes % (Manual) Eosinophils % (Manual) Basophils % (Manual) Nucleated RBC % Seg Neutrophils # Seg Neutrophils # Man Lymphocytes # (Manual) Monocytes # (Manual) Eosinophils # (Manual) Basophils # (Manual) PT INR Fibrinogen dRVVT Confirm Interp Factor V Activity POC ABG pH POC ABG pCO2 POC ABG pO2 ABG pO2 ABG HCO3 ABG Base Excess ABG Hemoglobin Oxyhemoglobin Sodium Potassium Chloride Carbon Dioxide BUN Creatinine Glucose POC Glucose 163 H 123 H 137 H Lactic Acid Calcium Ionized Calcium Phosphorus Magnesium Direct Bilirubin AST ALT Alkaline Phosphatase Lactate Dehydrogenase Troponin T C-Reactive Protein Total Protein Albumin Prealbumin Triglycerides Cholesterol LDL Cholesterol Direct HDL Cholesterol 25-OH Vitamin D Total PTH Intact Urine pH Urine WBC (Auto) Urine Creatinine Urine Total Protein Fluid Total Protein Vancomycin Trough Rheumatoid Factor Complement C4 Miscellaneous Test Crossmatch 12/09/16 12/09/16 12/09/16 05:34 06:00 06:00 WBC 15.5 H RBC 2.87 L Hgb 8.0 L Hct 24.2 L MCV MCH MCHC RDW 17.2 H Plt Count Lymph % (Auto) [place] % (Auto) 11.6 H Lymph # [place] # 1.8 H Baso # Seg Neutrophils % 70.8 H Seg Neuts % (Manual) Lymphocytes % (Manual) Monocytes % (Manual) Eosinophils % (Manual) Basophils % (Manual) Nucleated RBC % Seg Neutrophils # 11.0 H Seg Neutrophils # Man Lymphocytes # (Manual) Monocytes # (Manual) Eosinophils # (Manual) Basophils # (Manual) PT INR Fibrinogen dRVVT Confirm Interp Factor V Activity POC ABG pH POC ABG pCO2 POC ABG pO2 ABG pO2 ABG HCO3 ABG Base Excess ABG Hemoglobin Oxyhemoglobin Sodium Potassium Chloride Carbon Dioxide BUN 51 H Creatinine Glucose 117 H POC Glucose 136 H Lactic Acid Calcium Ionized Calcium Phosphorus Magnesium Direct Bilirubin AST ALT Alkaline Phosphatase Lactate Dehydrogenase Troponin T C-Reactive Protein Total Protein Albumin Prealbumin Triglycerides Cholesterol LDL Cholesterol Direct HDL Cholesterol 25-OH Vitamin D Total PTH Intact Urine pH Urine WBC (Auto) Urine Creatinine Urine Total Protein Fluid Total Protein Vancomycin Trough Rheumatoid Factor Complement C4 Miscellaneous Test Crossmatch 12/09/16 12/09/16 12/09/16 12:29 17:52 23:10 WBC RBC Hgb Hct MCV MCH MCHC RDW Plt Count Lymph % (Auto) [place] % (Auto) Lymph # [place] # Baso # Seg Neutrophils % Seg Neuts % (Manual) Lymphocytes % (Manual) Monocytes % (Manual) Eosinophils % (Manual) Basophils % (Manual) Nucleated RBC % Seg Neutrophils # Seg Neutrophils # Man Lymphocytes # (Manual) Monocytes # (Manual) Eosinophils # (Manual) Basophils # (Manual) PT INR Fibrinogen dRVVT Confirm Interp Factor V Activity POC ABG pH POC ABG pCO2 POC ABG pO2 ABG pO2 ABG HCO3 ABG Base Excess ABG Hemoglobin Oxyhemoglobin Sodium Potassium Chloride Carbon Dioxide BUN Creatinine Glucose POC Glucose 139 H 140 H 129 H Lactic Acid Calcium Ionized Calcium Phosphorus Magnesium Direct Bilirubin AST ALT Alkaline Phosphatase Lactate Dehydrogenase Troponin T C-Reactive Protein Total Protein Albumin Prealbumin Triglycerides Cholesterol LDL Cholesterol Direct HDL Cholesterol 25-OH Vitamin D Total PTH Intact Urine pH Urine WBC (Auto) Urine Creatinine Urine Total Protein Fluid Total Protein Vancomycin Trough Rheumatoid Factor Complement C4 Miscellaneous Test Crossmatch 12/10/16 12/10/16 12/10/16 05:00 05:00 06:54 WBC 15.7 H RBC 2.87 L Hgb 8.2 L Hct 24.4 L MCV MCH MCHC RDW 17.2 H Plt Count Lymph % (Auto) [place] % (Auto) 8.3 H Lymph # [place] # 1.3 H Baso # Seg Neutrophils % 72.8 H Seg Neuts % (Manual) Lymphocytes % (Manual) Monocytes % (Manual) Eosinophils % (Manual) Basophils % (Manual) Nucleated RBC % Seg Neutrophils # 11.4 H Seg Neutrophils # Man Lymphocytes # (Manual) Monocytes # (Manual) Eosinophils # (Manual) Basophils # (Manual) PT INR Fibrinogen dRVVT Confirm Interp Factor V Activity POC ABG pH POC ABG pCO2 POC ABG pO2 ABG pO2 ABG HCO3 ABG Base Excess ABG Hemoglobin Oxyhemoglobin Sodium Potassium Chloride Carbon Dioxide BUN 64 H Creatinine 1.4 H Glucose 134 H POC Glucose 154 H Lactic Acid Calcium Ionized Calcium Phosphorus Magnesium Direct Bilirubin AST ALT Alkaline Phosphatase Lactate Dehydrogenase Troponin T C-Reactive Protein Total Protein Albumin Prealbumin Triglycerides Cholesterol LDL Cholesterol Direct HDL Cholesterol 25-OH Vitamin D Total PTH Intact Urine pH Urine WBC (Auto) Urine Creatinine Urine Total Protein Fluid Total Protein Vancomycin Trough Rheumatoid Factor Complement C4 Miscellaneous Test Crossmatch 12/10/16 12/10/16 12/10/16 11:58 17:29 23:52 WBC RBC Hgb Hct MCV MCH MCHC RDW Plt Count Lymph % (Auto) [place] % (Auto) Lymph # [place] # Baso # Seg Neutrophils % Seg Neuts % (Manual) Lymphocytes % (Manual) Monocytes % (Manual) Eosinophils % (Manual) Basophils % (Manual) Nucleated RBC % Seg Neutrophils # Seg Neutrophils # Man Lymphocytes # (Manual) Monocytes # (Manual) Eosinophils # (Manual) Basophils # (Manual) PT INR Fibrinogen dRVVT Confirm Interp Factor V Activity POC ABG pH POC ABG pCO2 POC ABG pO2 ABG pO2 ABG HCO3 ABG Base Excess ABG Hemoglobin Oxyhemoglobin Sodium Potassium Chloride Carbon Dioxide BUN Creatinine Glucose POC Glucose 144 H 163 H 125 H Lactic Acid Calcium Ionized Calcium Phosphorus Magnesium Direct Bilirubin AST ALT Alkaline Phosphatase Lactate Dehydrogenase Troponin T C-Reactive Protein Total Protein Albumin Prealbumin Triglycerides Cholesterol LDL Cholesterol Direct HDL Cholesterol 25-OH Vitamin D Total PTH Intact Urine pH Urine WBC (Auto) Urine Creatinine Urine Total Protein Fluid Total Protein Vancomycin Trough Rheumatoid Factor Complement C4 Miscellaneous Test Crossmatch 12/11/16 12/11/16 12/11/16 05:38 06:30 06:30 WBC 14.4 H RBC 2.76 L Hgb 7.7 L Hct 23.4 L MCV MCH MCHC RDW 17.2 H Plt Count Lymph % (Auto) [place] % (Auto) 8.8 H Lymph # [place] # 1.3 H Baso # Seg Neutrophils % 72.5 H Seg Neuts % (Manual) Lymphocytes % (Manual) Monocytes % (Manual) Eosinophils % (Manual) Basophils % (Manual) Nucleated RBC % Seg Neutrophils # 10.5 H Seg Neutrophils # Man Lymphocytes # (Manual) Monocytes # (Manual) Eosinophils # (Manual) Basophils # (Manual) PT INR Fibrinogen dRVVT Confirm Interp Factor V Activity POC ABG pH POC ABG pCO2 POC ABG pO2 ABG pO2 ABG HCO3 ABG Base Excess ABG Hemoglobin Oxyhemoglobin Sodium Potassium Chloride Carbon Dioxide BUN 43 H Creatinine Glucose 124 H POC Glucose 141 H Lactic Acid Calcium 8.3 L Ionized Calcium Phosphorus Magnesium 1.60 L Direct Bilirubin AST ALT Alkaline Phosphatase Lactate Dehydrogenase Troponin T C-Reactive Protein Total Protein Albumin Prealbumin Triglycerides Cholesterol LDL Cholesterol Direct HDL Cholesterol 25-OH Vitamin D Total PTH Intact Urine pH Urine WBC (Auto) Urine Creatinine Urine Total Protein Fluid Total Protein Vancomycin Trough Rheumatoid Factor Complement C4 Miscellaneous Test Crossmatch 12/11/16 12/11/16 12/11/16 11:15 17:59 23:48 WBC RBC Hgb Hct MCV MCH MCHC RDW Plt Count Lymph % (Auto) [place] % (Auto) Lymph # [place] # Baso # Seg Neutrophils % Seg Neuts % (Manual) Lymphocytes % (Manual) Monocytes % (Manual) Eosinophils % (Manual) Basophils % (Manual) Nucleated RBC % Seg Neutrophils # Seg Neutrophils # Man Lymphocytes # (Manual) Monocytes # (Manual) Eosinophils # (Manual) Basophils # (Manual) PT INR Fibrinogen dRVVT Confirm Interp Factor V Activity POC ABG pH POC ABG pCO2 POC ABG pO2 ABG pO2 ABG HCO3 ABG Base Excess ABG Hemoglobin Oxyhemoglobin Sodium Potassium Chloride Carbon Dioxide BUN Creatinine Glucose POC Glucose 188 H 106 H 119 H Lactic Acid Calcium Ionized Calcium Phosphorus Magnesium Direct Bilirubin AST ALT Alkaline Phosphatase Lactate Dehydrogenase Troponin T C-Reactive Protein Total Protein Albumin Prealbumin Triglycerides Cholesterol LDL Cholesterol Direct HDL Cholesterol 25-OH Vitamin D Total PTH Intact Urine pH Urine WBC (Auto) Urine Creatinine Urine Total Protein Fluid Total Protein Vancomycin Trough Rheumatoid Factor Complement C4 Miscellaneous Test Crossmatch 12/12/16 12/12/16 12/12/16 05:00 06:01 12:20 WBC 16.7 H RBC 2.87 L Hgb 8.0 L Hct 24.2 L MCV MCH MCHC RDW 17.6 H Plt Count Lymph % (Auto) [place] % (Auto) Lymph # [place] # 1.2 H Baso # Seg Neutrophils % 75.3 H Seg Neuts % (Manual) Lymphocytes % (Manual) Monocytes % (Manual) Eosinophils % (Manual) Basophils % (Manual) Nucleated RBC % Seg Neutrophils # 12.6 H Seg Neutrophils # Man Lymphocytes # (Manual) Monocytes # (Manual) Eosinophils # (Manual) Basophils # (Manual) PT INR Fibrinogen dRVVT Confirm Interp Factor V Activity POC ABG pH POC ABG pCO2 POC ABG pO2 ABG pO2 ABG HCO3 ABG Base Excess ABG Hemoglobin Oxyhemoglobin Sodium Potassium Chloride Carbon Dioxide BUN Creatinine Glucose POC Glucose 134 H 149 H Lactic Acid Calcium Ionized Calcium Phosphorus Magnesium Direct Bilirubin AST ALT Alkaline Phosphatase Lactate Dehydrogenase Troponin T C-Reactive Protein Total Protein Albumin Prealbumin Triglycerides Cholesterol LDL Cholesterol Direct HDL Cholesterol 25-OH Vitamin D Total PTH Intact Urine pH Urine WBC (Auto) Urine Creatinine Urine Total Protein Fluid Total Protein Vancomycin Trough Rheumatoid Factor Complement C4 Miscellaneous Test Crossmatch 12/12/16 12/12/16 12/12/16 17:38 23:01 Unknown WBC RBC Hgb Hct MCV MCH MCHC RDW Plt Count Lymph % (Auto) [place] % (Auto) Lymph # [place] # Baso # Seg Neutrophils % Seg Neuts % (Manual) Lymphocytes % (Manual) Monocytes % (Manual) Eosinophils % (Manual) Basophils % (Manual) Nucleated RBC % Seg Neutrophils # Seg Neutrophils # Man Lymphocytes # (Manual) Monocytes # (Manual) Eosinophils # (Manual) Basophils # (Manual) PT INR Fibrinogen dRVVT Confirm Interp Factor V Activity POC ABG pH POC ABG pCO2 POC ABG pO2 ABG pO2 ABG HCO3 ABG Base Excess ABG Hemoglobin Oxyhemoglobin Sodium Potassium Chloride Carbon Dioxide BUN 60 H Creatinine 1.3 H Glucose 126 H POC Glucose 127 H 144 H Lactic Acid Calcium Ionized Calcium Phosphorus Magnesium Direct Bilirubin AST ALT Alkaline Phosphatase Lactate Dehydrogenase Troponin T C-Reactive Protein Total Protein Albumin Prealbumin Triglycerides Cholesterol LDL Cholesterol Direct HDL Cholesterol 25-OH Vitamin D Total PTH Intact Urine pH Urine WBC (Auto) Urine Creatinine Urine Total Protein Fluid Total Protein Vancomycin Trough Rheumatoid Factor Complement C4 Miscellaneous Test Crossmatch 12/13/16 12/13/16 12/13/16 04:00 04:00 05:19 WBC 18.7 H RBC 2.89 L Hgb 8.3 L Hct 24.6 L MCV MCH MCHC RDW 17.5 H Plt Count Lymph % (Auto) [place] % (Auto) Lymph # [place] # 1.3 H Baso # Seg Neutrophils % 71.5 H Seg Neuts % (Manual) Lymphocytes % (Manual) Monocytes % (Manual) Eosinophils % (Manual) Basophils % (Manual) Nucleated RBC % Seg Neutrophils # 13.4 H Seg Neutrophils # Man Lymphocytes # (Manual) Monocytes # (Manual) Eosinophils # (Manual) Basophils # (Manual) PT INR Fibrinogen dRVVT Confirm Interp Factor V Activity POC ABG pH POC ABG pCO2 POC ABG pO2 ABG pO2 ABG HCO3 ABG Base Excess ABG Hemoglobin Oxyhemoglobin Sodium Potassium Chloride Carbon Dioxide BUN 73 H Creatinine 1.5 H Glucose 141 H POC Glucose 171 H Lactic Acid Calcium Ionized Calcium Phosphorus Magnesium Direct Bilirubin AST ALT Alkaline Phosphatase Lactate Dehydrogenase Troponin T C-Reactive Protein Total Protein Albumin Prealbumin Triglycerides Cholesterol LDL Cholesterol Direct HDL Cholesterol 25-OH Vitamin D Total PTH Intact Urine pH Urine WBC (Auto) Urine Creatinine Urine Total Protein Fluid Total Protein Vancomycin Trough Rheumatoid Factor Complement C4 Miscellaneous Test Crossmatch 12/13/16 12/13/16 12/14/16 12:28 16:48 00:01 WBC RBC Hgb Hct MCV MCH MCHC RDW Plt Count Lymph % (Auto) [place] % (Auto) Lymph # [place] # Baso # Seg Neutrophils % Seg Neuts % (Manual) Lymphocytes % (Manual) Monocytes % (Manual) Eosinophils % (Manual) Basophils % (Manual) Nucleated RBC % Seg Neutrophils # Seg Neutrophils # Man Lymphocytes # (Manual) Monocytes # (Manual) Eosinophils # (Manual) Basophils # (Manual) PT INR Fibrinogen dRVVT Confirm Interp Factor V Activity POC ABG pH POC ABG pCO2 POC ABG pO2 ABG pO2 ABG HCO3 ABG Base Excess ABG Hemoglobin Oxyhemoglobin Sodium Potassium Chloride Carbon Dioxide BUN Creatinine Glucose POC Glucose 206 H 173 H 139 H Lactic Acid Calcium Ionized Calcium Phosphorus Magnesium Direct Bilirubin AST ALT Alkaline Phosphatase Lactate Dehydrogenase Troponin T C-Reactive Protein Total Protein Albumin Prealbumin Triglycerides Cholesterol LDL Cholesterol Direct HDL Cholesterol 25-OH Vitamin D Total PTH Intact Urine pH Urine WBC (Auto) Urine Creatinine Urine Total Protein Fluid Total Protein Vancomycin Trough Rheumatoid Factor Complement C4 Miscellaneous Test Crossmatch 12/14/16 12/14/16 12/14/16 05:16 06:10 11:17 WBC RBC Hgb Hct MCV MCH MCHC RDW Plt Count Lymph % (Auto) [place] % (Auto) Lymph # [place] # Baso # Seg Neutrophils % Seg Neuts % (Manual) Lymphocytes % (Manual) Monocytes % (Manual) Eosinophils % (Manual) Basophils % (Manual) Nucleated RBC % Seg Neutrophils # Seg Neutrophils # Man Lymphocytes # (Manual) Monocytes # (Manual) Eosinophils # (Manual) Basophils # (Manual) PT INR Fibrinogen dRVVT Confirm Interp Factor V Activity POC ABG pH POC ABG pCO2 POC ABG pO2 ABG pO2 ABG HCO3 ABG Base Excess ABG Hemoglobin Oxyhemoglobin Sodium Potassium Chloride Carbon Dioxide BUN 57 H Creatinine 1.4 H Glucose 135 H POC Glucose 158 H 137 H Lactic Acid Calcium Ionized Calcium Phosphorus Magnesium Direct Bilirubin AST ALT Alkaline Phosphatase Lactate Dehydrogenase Troponin T C-Reactive Protein Total Protein Albumin Prealbumin Triglycerides Cholesterol LDL Cholesterol Direct HDL Cholesterol 25-OH Vitamin D Total PTH Intact Urine pH Urine WBC (Auto) Urine Creatinine Urine Total Protein Fluid Total Protein Vancomycin Trough Rheumatoid Factor Complement C4 Miscellaneous Test Crossmatch 12/14/16 12/14/16 12/15/16 17:52 23:27 04:00 WBC RBC Hgb Hct MCV MCH MCHC RDW Plt Count Lymph % (Auto) [place] % (Auto) Lymph # [place] # Baso # Seg Neutrophils % Seg Neuts % (Manual) Lymphocytes % (Manual) Monocytes % (Manual) Eosinophils % (Manual) Basophils % (Manual) Nucleated RBC % Seg Neutrophils # Seg Neutrophils # Man Lymphocytes # (Manual) Monocytes # (Manual) Eosinophils # (Manual) Basophils # (Manual) PT INR Fibrinogen dRVVT Confirm Interp Factor V Activity POC ABG pH POC ABG pCO2 POC ABG pO2 ABG pO2 ABG HCO3 ABG Base Excess ABG Hemoglobin Oxyhemoglobin Sodium Potassium Chloride 97.9 L Carbon Dioxide BUN 75 H Creatinine 1.6 H Glucose 122 H POC Glucose 149 H 163 H Lactic Acid Calcium Ionized Calcium Phosphorus 5.20 H Magnesium Direct Bilirubin AST ALT Alkaline Phosphatase Lactate Dehydrogenase Troponin T C-Reactive Protein Total Protein Albumin Prealbumin Triglycerides Cholesterol LDL Cholesterol Direct HDL Cholesterol 25-OH Vitamin D Total PTH Intact Urine pH Urine WBC (Auto) Urine Creatinine Urine Total Protein Fluid Total Protein Vancomycin Trough Rheumatoid Factor Complement C4 Miscellaneous Test Crossmatch 12/15/16 12/15/16 12/15/16 05:50 11:24 17:01 WBC RBC Hgb Hct MCV MCH MCHC RDW Plt Count Lymph % (Auto) [place] % (Auto) Lymph # [place] # Baso # Seg Neutrophils % Seg Neuts % (Manual) Lymphocytes % (Manual) Monocytes % (Manual) Eosinophils % (Manual) Basophils % (Manual) Nucleated RBC % Seg Neutrophils # Seg Neutrophils # Man Lymphocytes # (Manual) Monocytes # (Manual) Eosinophils # (Manual) Basophils # (Manual) PT INR Fibrinogen dRVVT Confirm Interp Factor V Activity POC ABG pH POC ABG pCO2 POC ABG pO2 ABG pO2 ABG HCO3 ABG Base Excess ABG Hemoglobin Oxyhemoglobin Sodium Potassium Chloride Carbon Dioxide BUN Creatinine Glucose POC Glucose 150 H 146 H 167 H Lactic Acid Calcium Ionized Calcium Phosphorus Magnesium Direct Bilirubin AST ALT Alkaline Phosphatase Lactate Dehydrogenase Troponin T C-Reactive Protein Total Protein Albumin Prealbumin Triglycerides Cholesterol LDL Cholesterol Direct HDL Cholesterol 25-OH Vitamin D Total PTH Intact Urine pH Urine WBC (Auto) Urine Creatinine Urine Total Protein Fluid Total Protein Vancomycin Trough Rheumatoid Factor Complement C4 Miscellaneous Test Crossmatch 12/15/16 12/16/16 12/16/16 23:34 05:25 11:24 WBC RBC Hgb Hct MCV MCH MCHC RDW Plt Count Lymph % (Auto) [place] % (Auto) Lymph # [place] # Baso # Seg Neutrophils % Seg Neuts % (Manual) Lymphocytes % (Manual) Monocytes % (Manual) Eosinophils % (Manual) Basophils % (Manual) Nucleated RBC % Seg Neutrophils # Seg Neutrophils # Man Lymphocytes # (Manual) Monocytes # (Manual) Eosinophils # (Manual) Basophils # (Manual) PT INR Fibrinogen dRVVT Confirm Interp Factor V Activity POC ABG pH POC ABG pCO2 POC ABG pO2 ABG pO2 ABG HCO3 ABG Base Excess ABG Hemoglobin Oxyhemoglobin Sodium Potassium Chloride Carbon Dioxide BUN Creatinine Glucose POC Glucose 127 H 139 H 165 H Lactic Acid Calcium Ionized Calcium Phosphorus Magnesium Direct Bilirubin AST ALT Alkaline Phosphatase Lactate Dehydrogenase Troponin T C-Reactive Protein Total Protein Albumin Prealbumin Triglycerides Cholesterol LDL Cholesterol Direct HDL Cholesterol 25-OH Vitamin D Total PTH Intact Urine pH Urine WBC (Auto) Urine Creatinine Urine Total Protein Fluid Total Protein Vancomycin Trough Rheumatoid Factor Complement C4 Miscellaneous Test Crossmatch 12/16/16 12/16/16 12/16/16 15:30 16:25 17:31 WBC 17.8 H RBC 2.38 L Hgb 6.4 L Hct 20.3 L MCV MCH 27 L MCHC RDW 17.4 H Plt Count Lymph % (Auto) [place] % (Auto) Lymph # [place] # Baso # Seg Neutrophils % Seg Neuts % (Manual) Lymphocytes % (Manual) Monocytes % (Manual) 10.0 H Eosinophils % (Manual) Basophils % (Manual) Nucleated RBC % Seg Neutrophils # Seg Neutrophils # Man 8.5 H Lymphocytes # (Manual) Monocytes # (Manual) 1.8 H Eosinophils # (Manual) Basophils # (Manual) PT INR Fibrinogen dRVVT Confirm Interp Factor V Activity POC ABG pH POC ABG pCO2 POC ABG pO2 ABG pO2 ABG HCO3 ABG Base Excess ABG Hemoglobin Oxyhemoglobin Sodium Potassium Chloride Carbon Dioxide BUN Creatinine Glucose POC Glucose 176 H Lactic Acid Calcium Ionized Calcium Phosphorus Magnesium Direct Bilirubin AST ALT Alkaline Phosphatase Lactate Dehydrogenase Troponin T C-Reactive Protein Total Protein Albumin Prealbumin Triglycerides Cholesterol LDL Cholesterol Direct HDL Cholesterol 25-OH Vitamin D Total PTH Intact Urine pH Urine WBC (Auto) Urine Creatinine Urine Total Protein Fluid Total Protein Vancomycin Trough Rheumatoid Factor Complement C4 Miscellaneous Test Crossmatch See Detail 12/17/16 12/17/16 12/17/16 00:14 04:00 05:00 WBC 20.0 H RBC 2.99 L Hgb 8.5 L Hct 25.7 L MCV MCH MCHC RDW 17.2 H Plt Count Lymph % (Auto) [place] % (Auto) Lymph # [place] # Baso # Seg Neutrophils % Seg Neuts % (Manual) Lymphocytes % (Manual) Monocytes % (Manual) Eosinophils % (Manual) Basophils % (Manual) Nucleated RBC % Seg Neutrophils # Seg Neutrophils # Man Lymphocytes # (Manual) Monocytes # (Manual) Eosinophils # (Manual) Basophils # (Manual) PT INR Fibrinogen dRVVT Confirm Interp Factor V Activity POC ABG pH POC ABG pCO2 POC ABG pO2 ABG pO2 ABG HCO3 ABG Base Excess ABG Hemoglobin Oxyhemoglobin Sodium Potassium Chloride 97.7 L Carbon Dioxide BUN 73 H Creatinine 1.7 H Glucose 136 H POC Glucose 148 H Lactic Acid Calcium Ionized Calcium Phosphorus 2.20 L Magnesium 2.70 H Direct Bilirubin AST ALT Alkaline Phosphatase Lactate Dehydrogenase Troponin T C-Reactive Protein Total Protein Albumin Prealbumin Triglycerides Cholesterol LDL Cholesterol Direct HDL Cholesterol 25-OH Vitamin D Total PTH Intact Urine pH Urine WBC (Auto) Urine Creatinine Urine Total Protein Fluid Total Protein Vancomycin Trough Rheumatoid Factor Complement C4 Miscellaneous Test Crossmatch 12/17/16 12/17/16 12/17/16 05:39 12:50 16:32 WBC RBC Hgb Hct MCV MCH MCHC RDW Plt Count Lymph % (Auto) [place] % (Auto) Lymph # [place] # Baso # Seg Neutrophils % Seg Neuts % (Manual) Lymphocytes % (Manual) Monocytes % (Manual) Eosinophils % (Manual) Basophils % (Manual) Nucleated RBC % Seg Neutrophils # Seg Neutrophils # Man Lymphocytes # (Manual) Monocytes # (Manual) Eosinophils # (Manual) Basophils # (Manual) PT INR Fibrinogen dRVVT Confirm Interp Factor V Activity POC ABG pH POC ABG pCO2 POC ABG pO2 ABG pO2 ABG HCO3 ABG Base Excess ABG Hemoglobin Oxyhemoglobin Sodium Potassium Chloride Carbon Dioxide BUN Creatinine Glucose POC Glucose 162 H 146 H 169 H Lactic Acid Calcium Ionized Calcium Phosphorus Magnesium Direct Bilirubin AST ALT Alkaline Phosphatase Lactate Dehydrogenase Troponin T C-Reactive Protein Total Protein Albumin Prealbumin Triglycerides Cholesterol LDL Cholesterol Direct HDL Cholesterol 25-OH Vitamin D Total PTH Intact Urine pH Urine WBC (Auto) Urine Creatinine Urine Total Protein Fluid Total Protein Vancomycin Trough Rheumatoid Factor Complement C4 Miscellaneous Test Crossmatch 12/17/16 12/18/16 12/18/16 23:57 05:00 05:32 WBC RBC Hgb Hct MCV MCH MCHC RDW Plt Count Lymph % (Auto) [place] % (Auto) Lymph # [place] # Baso # Seg Neutrophils % Seg Neuts % (Manual) Lymphocytes % (Manual) Monocytes % (Manual) Eosinophils % (Manual) Basophils % (Manual) Nucleated RBC % Seg Neutrophils # Seg Neutrophils # Man Lymphocytes # (Manual) Monocytes # (Manual) Eosinophils # (Manual) Basophils # (Manual) PT INR Fibrinogen dRVVT Confirm Interp Factor V Activity POC ABG pH POC ABG pCO2 POC ABG pO2 ABG pO2 ABG HCO3 ABG Base Excess ABG Hemoglobin Oxyhemoglobin Sodium Potassium Chloride 97.0 L Carbon Dioxide BUN 63 H Creatinine 1.4 H Glucose 174 H POC Glucose 145 H 201 H Lactic Acid Calcium Ionized Calcium Phosphorus 1.70 L D Magnesium Direct Bilirubin AST ALT Alkaline Phosphatase 257 H Lactate Dehydrogenase Troponin T C-Reactive Protein Total Protein 5.9 L Albumin 1.8 L Prealbumin Triglycerides Cholesterol LDL Cholesterol Direct HDL Cholesterol 25-OH Vitamin D Total PTH Intact Urine pH Urine WBC (Auto) Urine Creatinine Urine Total Protein Fluid Total Protein Vancomycin Trough Rheumatoid Factor Complement C4 Miscellaneous Test Crossmatch 12/18/16 12/18/16 12/18/16 11:43 16:52 23:52 WBC RBC Hgb Hct MCV MCH MCHC RDW Plt Count Lymph % (Auto) [place] % (Auto) Lymph # [place] # Baso # Seg Neutrophils % Seg Neuts % (Manual) Lymphocytes % (Manual) Monocytes % (Manual) Eosinophils % (Manual) Basophils % (Manual) Nucleated RBC % Seg Neutrophils # Seg Neutrophils # Man Lymphocytes # (Manual) Monocytes # (Manual) Eosinophils # (Manual) Basophils # (Manual) PT INR Fibrinogen dRVVT Confirm Interp Factor V Activity POC ABG pH POC ABG pCO2 POC ABG pO2 ABG pO2 ABG HCO3 ABG Base Excess ABG Hemoglobin Oxyhemoglobin Sodium Potassium Chloride Carbon Dioxide BUN Creatinine Glucose POC Glucose 177 H 110 H 162 H Lactic Acid Calcium Ionized Calcium Phosphorus Magnesium Direct Bilirubin AST ALT Alkaline Phosphatase Lactate Dehydrogenase Troponin T C-Reactive Protein Total Protein Albumin Prealbumin Triglycerides Cholesterol LDL Cholesterol Direct HDL Cholesterol 25-OH Vitamin D Total PTH Intact Urine pH Urine WBC (Auto) Urine Creatinine Urine Total Protein Fluid Total Protein Vancomycin Trough Rheumatoid Factor Complement C4 Miscellaneous Test Crossmatch 12/19/16 12/19/16 12/19/16 05:02 05:24 09:30 WBC 20.1 H RBC 2.73 L Hgb 7.6 L Hct 23.6 L MCV MCH MCHC RDW 17.6 H Plt Count Lymph % (Auto) [place] % (Auto) Lymph # [place] # Baso # Seg Neutrophils % Seg Neuts % (Manual) Lymphocytes % (Manual) 13.0 L Monocytes % (Manual) Eosinophils % (Manual) Basophils % (Manual) Nucleated RBC % 1.0 H Seg Neutrophils # Seg Neutrophils # Man 12.9 H Lymphocytes # (Manual) Monocytes # (Manual) 1.4 H Eosinophils # (Manual) Basophils # (Manual) 0.2 H PT INR Fibrinogen dRVVT Confirm Interp Factor V Activity POC ABG pH POC ABG pCO2 POC ABG pO2 ABG pO2 ABG HCO3 ABG Base Excess ABG Hemoglobin Oxyhemoglobin Sodium Potassium Chloride 97.8 L Carbon Dioxide BUN 84 H Creatinine 1.6 H Glucose 133 H POC Glucose 134 H Lactic Acid Calcium Ionized Calcium Phosphorus Magnesium Direct Bilirubin AST ALT Alkaline Phosphatase Lactate Dehydrogenase Troponin T C-Reactive Protein Total Protein Albumin Prealbumin Triglycerides Cholesterol LDL Cholesterol Direct HDL Cholesterol 25-OH Vitamin D Total PTH Intact Urine pH Urine WBC (Auto) Urine Creatinine Urine Total Protein Fluid Total Protein Vancomycin Trough Rheumatoid Factor Complement C4 Miscellaneous Test Crossmatch 12/19/16 12/19/16 12/19/16 09:36 11:12 18:29 WBC RBC Hgb Hct MCV MCH MCHC RDW Plt Count Lymph % (Auto) [place] % (Auto) Lymph # [place] # Baso # Seg Neutrophils % Seg Neuts % (Manual) Lymphocytes % (Manual) Monocytes % (Manual) Eosinophils % (Manual) Basophils % (Manual) Nucleated RBC % Seg Neutrophils # Seg Neutrophils # Man Lymphocytes # (Manual) Monocytes # (Manual) Eosinophils # (Manual) Basophils # (Manual) PT INR Fibrinogen dRVVT Confirm Interp Factor V Activity POC ABG pH 7.503 H POC ABG pCO2 30.1 L POC ABG pO2 ABG pO2 ABG HCO3 ABG Base Excess ABG Hemoglobin Oxyhemoglobin Sodium Potassium Chloride Carbon Dioxide BUN Creatinine Glucose POC Glucose 138 H 156 H Lactic Acid Calcium Ionized Calcium Phosphorus Magnesium Direct Bilirubin AST ALT Alkaline Phosphatase Lactate Dehydrogenase Troponin T C-Reactive Protein Total Protein Albumin Prealbumin Triglycerides Cholesterol LDL Cholesterol Direct HDL Cholesterol 25-OH Vitamin D Total PTH Intact Urine pH Urine WBC (Auto) Urine Creatinine Urine Total Protein Fluid Total Protein Vancomycin Trough Rheumatoid Factor Complement C4 Miscellaneous Test Crossmatch 12/20/16 12/20/16 12/20/16 00:03 06:17 07:07 WBC RBC Hgb Hct MCV MCH MCHC RDW Plt Count Lymph % (Auto) [place] % (Auto) Lymph # [place] # Baso # Seg Neutrophils % Seg Neuts % (Manual) Lymphocytes % (Manual) Monocytes % (Manual) Eosinophils % (Manual) Basophils % (Manual) Nucleated RBC % Seg Neutrophils # Seg Neutrophils # Man Lymphocytes # (Manual) Monocytes # (Manual) Eosinophils # (Manual) Basophils # (Manual) PT INR Fibrinogen dRVVT Confirm Interp Factor V Activity POC ABG pH POC ABG pCO2 POC ABG pO2 ABG pO2 ABG HCO3 ABG Base Excess ABG Hemoglobin Oxyhemoglobin Sodium Potassium Chloride 97.1 L Carbon Dioxide 20 L BUN 97 H Creatinine 1.8 H Glucose 153 H POC Glucose 152 H 175 H Lactic Acid Calcium Ionized Calcium Phosphorus Magnesium Direct Bilirubin AST ALT Alkaline Phosphatase Lactate Dehydrogenase Troponin T C-Reactive Protein Total Protein Albumin Prealbumin Triglycerides Cholesterol LDL Cholesterol Direct HDL Cholesterol 25-OH Vitamin D Total PTH Intact Urine pH Urine WBC (Auto) Urine Creatinine Urine Total Protein Fluid Total Protein Vancomycin Trough Rheumatoid Factor Complement C4 Miscellaneous Test Crossmatch 12/20/16 12/20/16 12/20/16 12:00 17:42 23:53 WBC RBC Hgb Hct MCV MCH MCHC RDW Plt Count Lymph % (Auto) [place] % (Auto) Lymph # [place] # Baso # Seg Neutrophils % Seg Neuts % (Manual) Lymphocytes % (Manual) Monocytes % (Manual) Eosinophils % (Manual) Basophils % (Manual) Nucleated RBC % Seg Neutrophils # Seg Neutrophils # Man Lymphocytes # (Manual) Monocytes # (Manual) Eosinophils # (Manual) Basophils # (Manual) PT INR Fibrinogen dRVVT Confirm Interp Factor V Activity POC ABG pH POC ABG pCO2 POC ABG pO2 ABG pO2 ABG HCO3 ABG Base Excess ABG Hemoglobin Oxyhemoglobin Sodium Potassium Chloride Carbon Dioxide BUN Creatinine Glucose POC Glucose 141 H 156 H 132 H Lactic Acid Calcium Ionized Calcium Phosphorus Magnesium Direct Bilirubin AST ALT Alkaline Phosphatase Lactate Dehydrogenase Troponin T C-Reactive Protein Total Protein Albumin Prealbumin Triglycerides Cholesterol LDL Cholesterol Direct HDL Cholesterol 25-OH Vitamin D Total PTH Intact Urine pH Urine WBC (Auto) Urine Creatinine Urine Total Protein Fluid Total Protein Vancomycin Trough Rheumatoid Factor Complement C4 Miscellaneous Test Crossmatch 12/21/16 12/21/16 12/21/16 05:49 08:50 12:19 WBC RBC Hgb Hct MCV MCH MCHC RDW Plt Count Lymph % (Auto) [place] % (Auto) Lymph # [place] # Baso # Seg Neutrophils % Seg Neuts % (Manual) Lymphocytes % (Manual) Monocytes % (Manual) Eosinophils % (Manual) Basophils % (Manual) Nucleated RBC % Seg Neutrophils # Seg Neutrophils # Man Lymphocytes # (Manual) Monocytes # (Manual) Eosinophils # (Manual) Basophils # (Manual) PT INR Fibrinogen dRVVT Confirm Interp Factor V Activity POC ABG pH POC ABG pCO2 POC ABG pO2 ABG pO2 ABG HCO3 ABG Base Excess ABG Hemoglobin Oxyhemoglobin Sodium Potassium 5.2 H D Chloride Carbon Dioxide BUN 63 H Creatinine Glucose 122 H POC Glucose 132 H 136 H Lactic Acid Calcium 8.3 L Ionized Calcium Phosphorus Magnesium Direct Bilirubin AST ALT Alkaline Phosphatase Lactate Dehydrogenase Troponin T C-Reactive Protein Total Protein Albumin Prealbumin Triglycerides Cholesterol LDL Cholesterol Direct HDL Cholesterol 25-OH Vitamin D Total PTH Intact Urine pH Urine WBC (Auto) Urine Creatinine Urine Total Protein Fluid Total Protein Vancomycin Trough Rheumatoid Factor Complement C4 Miscellaneous Test Crossmatch 12/21/16 12/21/16 12/22/16 17:22 23:58 05:49 WBC RBC Hgb Hct MCV MCH MCHC RDW Plt Count Lymph % (Auto) [place] % (Auto) Lymph # [place] # Baso # Seg Neutrophils % Seg Neuts % (Manual) Lymphocytes % (Manual) Monocytes % (Manual) Eosinophils % (Manual) Basophils % (Manual) Nucleated RBC % Seg Neutrophils # Seg Neutrophils # Man Lymphocytes # (Manual) Monocytes # (Manual) Eosinophils # (Manual) Basophils # (Manual) PT INR Fibrinogen dRVVT Confirm Interp Factor V Activity POC ABG pH POC ABG pCO2 POC ABG pO2 ABG pO2 ABG HCO3 ABG Base Excess ABG Hemoglobin Oxyhemoglobin Sodium Potassium Chloride Carbon Dioxide BUN Creatinine Glucose POC Glucose 135 H 149 H 140 H Lactic Acid Calcium Ionized Calcium Phosphorus Magnesium Direct Bilirubin AST ALT Alkaline Phosphatase Lactate Dehydrogenase Troponin T C-Reactive Protein Total Protein Albumin Prealbumin Triglycerides Cholesterol LDL Cholesterol Direct HDL Cholesterol 25-OH Vitamin D Total PTH Intact Urine pH Urine WBC (Auto) Urine Creatinine Urine Total Protein Fluid Total Protein Vancomycin Trough Rheumatoid Factor Complement C4 Miscellaneous Test Crossmatch 12/22/16 12/22/16 12/22/16 06:10 11:17 17:31 WBC RBC Hgb Hct MCV MCH MCHC RDW Plt Count Lymph % (Auto) [place] % (Auto) Lymph # [place] # Baso # Seg Neutrophils % Seg Neuts % (Manual) Lymphocytes % (Manual) Monocytes % (Manual) Eosinophils % (Manual) Basophils % (Manual) Nucleated RBC % Seg Neutrophils # Seg Neutrophils # Man Lymphocytes # (Manual) Monocytes # (Manual) Eosinophils # (Manual) Basophils # (Manual) PT INR Fibrinogen dRVVT Confirm Interp Factor V Activity POC ABG pH POC ABG pCO2 POC ABG pO2 ABG pO2 ABG HCO3 ABG Base Excess ABG Hemoglobin Oxyhemoglobin Sodium Potassium Chloride Carbon Dioxide BUN 76 H Creatinine 1.5 H Glucose 241 H POC Glucose 193 H 148 H Lactic Acid Calcium Ionized Calcium Phosphorus Magnesium Direct Bilirubin AST ALT Alkaline Phosphatase Lactate Dehydrogenase Troponin T C-Reactive Protein Total Protein Albumin Prealbumin Triglycerides Cholesterol LDL Cholesterol Direct HDL Cholesterol 25-OH Vitamin D Total PTH Intact Urine pH Urine WBC (Auto) Urine Creatinine Urine Total Protein Fluid Total Protein Vancomycin Trough Rheumatoid Factor Complement C4 Miscellaneous Test Crossmatch 12/22/16 12/23/16 12/23/16 23:58 05:00 05:26 WBC RBC Hgb Hct MCV MCH MCHC RDW Plt Count Lymph % (Auto) [place] % (Auto) Lymph # [place] # Baso # Seg Neutrophils % Seg Neuts % (Manual) Lymphocytes % (Manual) Monocytes % (Manual) Eosinophils % (Manual) Basophils % (Manual) Nucleated RBC % Seg Neutrophils # Seg Neutrophils # Man Lymphocytes # (Manual) Monocytes # (Manual) Eosinophils # (Manual) Basophils # (Manual) PT INR Fibrinogen dRVVT Confirm Interp Factor V Activity POC ABG pH POC ABG pCO2 POC ABG pO2 ABG pO2 ABG HCO3 ABG Base Excess ABG Hemoglobin Oxyhemoglobin Sodium Potassium Chloride Carbon Dioxide BUN 49 H Creatinine Glucose 143 H POC Glucose 165 H 154 H Lactic Acid Calcium 8.2 L Ionized Calcium Phosphorus Magnesium 1.60 L Direct Bilirubin AST ALT Alkaline Phosphatase Lactate Dehydrogenase Troponin T C-Reactive Protein Total Protein Albumin Prealbumin Triglycerides Cholesterol LDL Cholesterol Direct HDL Cholesterol 25-OH Vitamin D Total PTH Intact Urine pH Urine WBC (Auto) Urine Creatinine Urine Total Protein Fluid Total Protein Vancomycin Trough Rheumatoid Factor Complement C4 Miscellaneous Test Crossmatch 12/23/16 12/23/16 12/24/16 12:35 17:01 00:01 WBC RBC Hgb Hct MCV MCH MCHC RDW Plt Count Lymph % (Auto) [place] % (Auto) Lymph # [place] # Baso # Seg Neutrophils % Seg Neuts % (Manual) Lymphocytes % (Manual) Monocytes % (Manual) Eosinophils % (Manual) Basophils % (Manual) Nucleated RBC % Seg Neutrophils # Seg Neutrophils # Man Lymphocytes # (Manual) Monocytes # (Manual) Eosinophils # (Manual) Basophils # (Manual) PT INR Fibrinogen dRVVT Confirm Interp Factor V Activity POC ABG pH POC ABG pCO2 POC ABG pO2 ABG pO2 ABG HCO3 ABG Base Excess ABG Hemoglobin Oxyhemoglobin Sodium Potassium Chloride Carbon Dioxide BUN Creatinine Glucose POC Glucose 164 H 149 H 135 H Lactic Acid Calcium Ionized Calcium Phosphorus Magnesium Direct Bilirubin AST ALT Alkaline Phosphatase Lactate Dehydrogenase Troponin T C-Reactive Protein Total Protein Albumin Prealbumin Triglycerides Cholesterol LDL Cholesterol Direct HDL Cholesterol 25-OH Vitamin D Total PTH Intact Urine pH Urine WBC (Auto) Urine Creatinine Urine Total Protein Fluid Total Protein Vancomycin Trough Rheumatoid Factor Complement C4 Miscellaneous Test Crossmatch 12/24/16 12/24/16 12/24/16 05:41 07:01 11:38 WBC RBC Hgb Hct MCV MCH MCHC RDW Plt Count Lymph % (Auto) [place] % (Auto) Lymph # [place] # Baso # Seg Neutrophils % Seg Neuts % (Manual) Lymphocytes % (Manual) Monocytes % (Manual) Eosinophils % (Manual) Basophils % (Manual) Nucleated RBC % Seg Neutrophils # Seg Neutrophils # Man Lymphocytes # (Manual) Monocytes # (Manual) Eosinophils # (Manual) Basophils # (Manual) PT INR Fibrinogen dRVVT Confirm Interp Factor V Activity POC ABG pH POC ABG pCO2 POC ABG pO2 ABG pO2 ABG HCO3 ABG Base Excess ABG Hemoglobin Oxyhemoglobin Sodium Potassium Chloride Carbon Dioxide BUN 72 H Creatinine 1.3 H Glucose 130 H POC Glucose 132 H 156 H Lactic Acid Calcium 8.2 L Ionized Calcium Phosphorus Magnesium Direct Bilirubin AST ALT Alkaline Phosphatase Lactate Dehydrogenase Troponin T C-Reactive Protein Total Protein Albumin Prealbumin Triglycerides Cholesterol LDL Cholesterol Direct HDL Cholesterol 25-OH Vitamin D Total PTH Intact Urine pH Urine WBC (Auto) Urine Creatinine Urine Total Protein Fluid Total Protein Vancomycin Trough Rheumatoid Factor Complement C4 Miscellaneous Test Crossmatch 12/24/16 12/25/16 12/25/16 17:53 00:23 05:45 WBC RBC Hgb Hct MCV MCH MCHC RDW Plt Count Lymph % (Auto) [place] % (Auto) Lymph # [place] # Baso # Seg Neutrophils % Seg Neuts % (Manual) Lymphocytes % (Manual) Monocytes % (Manual) Eosinophils % (Manual) Basophils % (Manual) Nucleated RBC % Seg Neutrophils # Seg Neutrophils # Man Lymphocytes # (Manual) Monocytes # (Manual) Eosinophils # (Manual) Basophils # (Manual) PT INR Fibrinogen dRVVT Confirm Interp Factor V Activity POC ABG pH POC ABG pCO2 POC ABG pO2 ABG pO2 ABG HCO3 ABG Base Excess ABG Hemoglobin Oxyhemoglobin Sodium 146 H Potassium Chloride Carbon Dioxide BUN 51 H Creatinine Glucose 109 H POC Glucose 169 H 117 H Lactic Acid Calcium Ionized Calcium Phosphorus Magnesium Direct Bilirubin AST ALT Alkaline Phosphatase Lactate Dehydrogenase Troponin T C-Reactive Protein Total Protein Albumin Prealbumin Triglycerides Cholesterol LDL Cholesterol Direct HDL Cholesterol 25-OH Vitamin D Total PTH Intact Urine pH Urine WBC (Auto) Urine Creatinine Urine Total Protein Fluid Total Protein Vancomycin Trough Rheumatoid Factor Complement C4 Miscellaneous Test Crossmatch 12/25/16 12/25/16 12/25/16 06:43 11:29 17:14 WBC RBC Hgb Hct MCV MCH MCHC RDW Plt Count Lymph % (Auto) [place] % (Auto) Lymph # [place] # Baso # Seg Neutrophils % Seg Neuts % (Manual) Lymphocytes % (Manual) Monocytes % (Manual) Eosinophils % (Manual) Basophils % (Manual) Nucleated RBC % Seg Neutrophils # Seg Neutrophils # Man Lymphocytes # (Manual) Monocytes # (Manual) Eosinophils # (Manual) Basophils # (Manual) PT INR Fibrinogen dRVVT Confirm Interp Factor V Activity POC ABG pH POC ABG pCO2 POC ABG pO2 ABG pO2 ABG HCO3 ABG Base Excess ABG Hemoglobin Oxyhemoglobin Sodium Potassium Chloride Carbon Dioxide BUN Creatinine Glucose POC Glucose 117 H 128 H 120 H Lactic Acid Calcium Ionized Calcium Phosphorus Magnesium Direct Bilirubin AST ALT Alkaline Phosphatase Lactate Dehydrogenase Troponin T C-Reactive Protein Total Protein Albumin Prealbumin Triglycerides Cholesterol LDL Cholesterol Direct HDL Cholesterol 25-OH Vitamin D Total PTH Intact Urine pH Urine WBC (Auto) Urine Creatinine Urine Total Protein Fluid Total Protein Vancomycin Trough Rheumatoid Factor Complement C4 Miscellaneous Test Crossmatch 12/25/16 12/26/16 12/26/16 23:54 05:40 05:50 WBC 16.2 H RBC 2.32 L Hgb 6.2 L Hct 20.1 L MCV MCH 27 L MCHC RDW 18.6 H Plt Count Lymph % (Auto) [place] % (Auto) Lymph # [place] # Baso # Seg Neutrophils % Seg Neuts % (Manual) Lymphocytes % (Manual) Monocytes % (Manual) Eosinophils % (Manual) Basophils % (Manual) Nucleated RBC % Seg Neutrophils # Seg Neutrophils # Man Lymphocytes # (Manual) Monocytes # (Manual) Eosinophils # (Manual) Basophils # (Manual) PT INR Fibrinogen dRVVT Confirm Interp Factor V Activity POC ABG pH POC ABG pCO2 POC ABG pO2 ABG pO2 ABG HCO3 ABG Base Excess ABG Hemoglobin Oxyhemoglobin Sodium Potassium Chloride Carbon Dioxide BUN Creatinine Glucose POC Glucose 126 H 132 H Lactic Acid Calcium Ionized Calcium Phosphorus Magnesium Direct Bilirubin AST ALT Alkaline Phosphatase Lactate Dehydrogenase Troponin T C-Reactive Protein Total Protein Albumin Prealbumin Triglycerides Cholesterol LDL Cholesterol Direct HDL Cholesterol 25-OH Vitamin D Total PTH Intact Urine pH Urine WBC (Auto) Urine Creatinine Urine Total Protein Fluid Total Protein Vancomycin Trough Rheumatoid Factor Complement C4 Miscellaneous Test Crossmatch 12/26/16 12/26/16 12/26/16 05:50 12:17 12:33 WBC RBC Hgb Hct MCV MCH MCHC RDW Plt Count Lymph % (Auto) [place] % (Auto) Lymph # [place] # Baso # Seg Neutrophils % Seg Neuts % (Manual) Lymphocytes % (Manual) Monocytes % (Manual) Eosinophils % (Manual) Basophils % (Manual) Nucleated RBC % Seg Neutrophils # Seg Neutrophils # Man Lymphocytes # (Manual) Monocytes # (Manual) Eosinophils # (Manual) Basophils # (Manual) PT INR Fibrinogen dRVVT Confirm Interp Factor V Activity POC ABG pH POC ABG pCO2 POC ABG pO2 ABG pO2 ABG HCO3 ABG Base Excess ABG Hemoglobin Oxyhemoglobin Sodium Potassium Chloride Carbon Dioxide BUN 73 H Creatinine 1.3 H Glucose 113 H POC Glucose 117 H Lactic Acid Calcium Ionized Calcium Phosphorus Magnesium Direct Bilirubin AST ALT Alkaline Phosphatase Lactate Dehydrogenase Troponin T C-Reactive Protein Total Protein Albumin Prealbumin Triglycerides Cholesterol LDL Cholesterol Direct HDL Cholesterol 25-OH Vitamin D Total PTH Intact Urine pH Urine WBC (Auto) Urine Creatinine Urine Total Protein Fluid Total Protein Vancomycin Trough Rheumatoid Factor Complement C4 Miscellaneous Test Crossmatch See Detail 12/26/16 12/26/16 12/27/16 20:00 23:21 05:00 WBC RBC Hgb 8.4 L Hct 26.3 L D MCV MCH MCHC RDW Plt Count Lymph % (Auto) [place] % (Auto) Lymph # [place] # Baso # Seg Neutrophils % Seg Neuts % (Manual) Lymphocytes % (Manual) Monocytes % (Manual) Eosinophils % (Manual) Basophils % (Manual) Nucleated RBC % Seg Neutrophils # Seg Neutrophils # Man Lymphocytes # (Manual) Monocytes # (Manual) Eosinophils # (Manual) Basophils # (Manual) PT INR Fibrinogen dRVVT Confirm Interp Factor V Activity POC ABG pH POC ABG pCO2 POC ABG pO2 ABG pO2 ABG HCO3 ABG Base Excess ABG Hemoglobin Oxyhemoglobin Sodium Potassium Chloride Carbon Dioxide BUN 85 H Creatinine 1.6 H Glucose 118 H POC Glucose 124 H Lactic Acid Calcium Ionized Calcium Phosphorus 4.80 H Magnesium Direct Bilirubin AST ALT Alkaline Phosphatase Lactate Dehydrogenase Troponin T C-Reactive Protein Total Protein Albumin Prealbumin Triglycerides Cholesterol LDL Cholesterol Direct HDL Cholesterol 25-OH Vitamin D Total PTH Intact Urine pH Urine WBC (Auto) Urine Creatinine Urine Total Protein Fluid Total Protein Vancomycin Trough Rheumatoid Factor Complement C4 Miscellaneous Test Crossmatch 12/27/16 12/27/16 12/27/16 05:00 05:35 12:24 WBC RBC Hgb 7.6 L Hct 22.8 L MCV MCH MCHC RDW Plt Count Lymph % (Auto) [place] % (Auto) Lymph # [place] # Baso # Seg Neutrophils % Seg Neuts % (Manual) Lymphocytes % (Manual) Monocytes % (Manual) Eosinophils % (Manual) Basophils % (Manual) Nucleated RBC % Seg Neutrophils # Seg Neutrophils # Man Lymphocytes # (Manual) Monocytes # (Manual) Eosinophils # (Manual) Basophils # (Manual) PT INR Fibrinogen dRVVT Confirm Interp Factor V Activity POC ABG pH POC ABG pCO2 POC ABG pO2 ABG pO2 ABG HCO3 ABG Base Excess ABG Hemoglobin Oxyhemoglobin Sodium Potassium Chloride Carbon Dioxide BUN Creatinine Glucose POC Glucose 115 H 131 H Lactic Acid Calcium Ionized Calcium Phosphorus Magnesium Direct Bilirubin AST ALT Alkaline Phosphatase Lactate Dehydrogenase Troponin T C-Reactive Protein Total Protein Albumin Prealbumin Triglycerides Cholesterol LDL Cholesterol Direct HDL Cholesterol 25-OH Vitamin D Total PTH Intact Urine pH Urine WBC (Auto) Urine Creatinine Urine Total Protein Fluid Total Protein Vancomycin Trough Rheumatoid Factor Complement C4 Miscellaneous Test Crossmatch 12/27/16 12/28/16 12/28/16 17:16 00:18 04:00 WBC RBC Hgb Hct MCV MCH MCHC RDW Plt Count Lymph % (Auto) [place] % (Auto) Lymph # [place] # Baso # Seg Neutrophils % Seg Neuts % (Manual) Lymphocytes % (Manual) Monocytes % (Manual) Eosinophils % (Manual) Basophils % (Manual) Nucleated RBC % Seg Neutrophils # Seg Neutrophils # Man Lymphocytes # (Manual) Monocytes # (Manual) Eosinophils # (Manual) Basophils # (Manual) PT INR Fibrinogen dRVVT Confirm Interp Factor V Activity POC ABG pH POC ABG pCO2 POC ABG pO2 ABG pO2 ABG HCO3 ABG Base Excess ABG Hemoglobin Oxyhemoglobin Sodium Potassium 3.5 L Chloride Carbon Dioxide BUN 57 H Creatinine Glucose 118 H POC Glucose 136 H 120 H Lactic Acid Calcium 8.3 L Ionized Calcium Phosphorus Magnesium Direct Bilirubin AST ALT Alkaline Phosphatase Lactate Dehydrogenase Troponin T C-Reactive Protein Total Protein Albumin Prealbumin Triglycerides Cholesterol LDL Cholesterol Direct HDL Cholesterol 25-OH Vitamin D Total PTH Intact Urine pH Urine WBC (Auto) Urine Creatinine Urine Total Protein Fluid Total Protein Vancomycin Trough Rheumatoid Factor Complement C4 Miscellaneous Test Crossmatch 12/28/16 12/28/16 12/28/16 04:00 05:11 08:30 WBC 17.0 H RBC 2.58 L Hgb 7.1 L Hct 22.0 L MCV MCH MCHC RDW 17.6 H Plt Count Lymph % (Auto) 12.2 L [place] % (Auto) Lymph # [place] # 1.1 H Baso # Seg Neutrophils % 80.5 H Seg Neuts % (Manual) Lymphocytes % (Manual) Monocytes % (Manual) Eosinophils % (Manual) Basophils % (Manual) Nucleated RBC % Seg Neutrophils # 13.7 H Seg Neutrophils # Man Lymphocytes # (Manual) Monocytes # (Manual) Eosinophils # (Manual) Basophils # (Manual) PT 16.1 H INR 1.23 H Fibrinogen dRVVT Confirm Interp Factor V Activity POC ABG pH POC ABG pCO2 POC ABG pO2 ABG pO2 ABG HCO3 ABG Base Excess ABG Hemoglobin Oxyhemoglobin Sodium Potassium Chloride Carbon Dioxide BUN Creatinine Glucose POC Glucose 122 H Lactic Acid Calcium Ionized Calcium Phosphorus Magnesium Direct Bilirubin AST ALT Alkaline Phosphatase Lactate Dehydrogenase Troponin T C-Reactive Protein Total Protein Albumin Prealbumin Triglycerides Cholesterol LDL Cholesterol Direct HDL Cholesterol 25-OH Vitamin D Total PTH Intact Urine pH Urine WBC (Auto) Urine Creatinine Urine Total Protein Fluid Total Protein Vancomycin Trough Rheumatoid Factor Complement C4 Miscellaneous Test Crossmatch 12/28/16 12/28/16 12/28/16 12:27 16:32 23:46 WBC RBC Hgb Hct MCV MCH MCHC RDW Plt Count Lymph % (Auto) [place] % (Auto) Lymph # [place] # Baso # Seg Neutrophils % Seg Neuts % (Manual) Lymphocytes % (Manual) Monocytes % (Manual) Eosinophils % (Manual) Basophils % (Manual) Nucleated RBC % Seg Neutrophils # Seg Neutrophils # Man Lymphocytes # (Manual) Monocytes # (Manual) Eosinophils # (Manual) Basophils # (Manual) PT INR Fibrinogen dRVVT Confirm Interp Factor V Activity POC ABG pH POC ABG pCO2 POC ABG pO2 ABG pO2 ABG HCO3 ABG Base Excess ABG Hemoglobin Oxyhemoglobin Sodium Potassium Chloride Carbon Dioxide BUN Creatinine Glucose POC Glucose 127 H 117 H 108 H Lactic Acid Calcium Ionized Calcium Phosphorus Magnesium Direct Bilirubin AST ALT Alkaline Phosphatase Lactate Dehydrogenase Troponin T C-Reactive Protein Total Protein Albumin Prealbumin Triglycerides Cholesterol LDL Cholesterol Direct HDL Cholesterol 25-OH Vitamin D Total PTH Intact Urine pH Urine WBC (Auto) Urine Creatinine Urine Total Protein Fluid Total Protein Vancomycin Trough Rheumatoid Factor Complement C4 Miscellaneous Test Crossmatch 12/29/16 12/29/16 12/29/16 05:15 05:15 05:32 WBC RBC Hgb Hct MCV MCH MCHC RDW Plt Count Lymph % (Auto) [place] % (Auto) Lymph # [place] # Baso # Seg Neutrophils % Seg Neuts % (Manual) Lymphocytes % (Manual) Monocytes % (Manual) Eosinophils % (Manual) Basophils % (Manual) Nucleated RBC % Seg Neutrophils # Seg Neutrophils # Man Lymphocytes # (Manual) Monocytes # (Manual) Eosinophils # (Manual) Basophils # (Manual) PT INR Fibrinogen dRVVT Confirm Interp Factor V Activity POC ABG pH POC ABG pCO2 POC ABG pO2 ABG pO2 ABG HCO3 ABG Base Excess ABG Hemoglobin Oxyhemoglobin Sodium Potassium Chloride Carbon Dioxide BUN 74 H Creatinine 1.6 H Glucose 111 H POC Glucose 123 H Lactic Acid Calcium Ionized Calcium Phosphorus Magnesium Direct Bilirubin AST ALT Alkaline Phosphatase Lactate Dehydrogenase Troponin T C-Reactive Protein Total Protein Albumin Prealbumin 0.110 L Triglycerides Cholesterol LDL Cholesterol Direct HDL Cholesterol 25-OH Vitamin D Total PTH Intact Urine pH Urine WBC (Auto) Urine Creatinine Urine Total Protein Fluid Total Protein Vancomycin Trough Rheumatoid Factor Complement C4 Miscellaneous Test Crossmatch 12/29/16 12/29/16 12/29/16 11:43 13:45 14:00 WBC 13.8 H RBC 2.26 L Hgb 6.3 L Hct 20.4 L MCV MCH MCHC RDW 18.3 H Plt Count Lymph % (Auto) [place] % (Auto) Lymph # [place] # 0.9 H Baso # Seg Neutrophils % 78.6 H Seg Neuts % (Manual) Lymphocytes % (Manual) Monocytes % (Manual) Eosinophils % (Manual) Basophils % (Manual) Nucleated RBC % Seg Neutrophils # 10.8 H Seg Neutrophils # Man Lymphocytes # (Manual) Monocytes # (Manual) Eosinophils # (Manual) Basophils # (Manual) PT INR Fibrinogen dRVVT Confirm Interp Factor V Activity POC ABG pH POC ABG pCO2 POC ABG pO2 ABG pO2 ABG HCO3 ABG Base Excess ABG Hemoglobin Oxyhemoglobin Sodium Potassium Chloride Carbon Dioxide BUN Creatinine Glucose POC Glucose 133 H Lactic Acid Calcium Ionized Calcium Phosphorus Magnesium Direct Bilirubin AST ALT Alkaline Phosphatase Lactate Dehydrogenase Troponin T C-Reactive Protein Total Protein Albumin Prealbumin Triglycerides Cholesterol LDL Cholesterol Direct HDL Cholesterol 25-OH Vitamin D Total PTH Intact Urine pH Urine WBC (Auto) Urine Creatinine Urine Total Protein Fluid Total Protein Vancomycin Trough Rheumatoid Factor Complement C4 Miscellaneous Test Crossmatch See Detail 12/29/16 12/29/16 12/29/16 17:03 23:15 23:22 WBC RBC Hgb 7.3 L Hct 22.3 L MCV MCH MCHC RDW Plt Count Lymph % (Auto) [place] % (Auto) Lymph # [place] # Baso # Seg Neutrophils % Seg Neuts % (Manual) Lymphocytes % (Manual) Monocytes % (Manual) Eosinophils % (Manual) Basophils % (Manual) Nucleated RBC % Seg Neutrophils # Seg Neutrophils # Man Lymphocytes # (Manual) Monocytes # (Manual) Eosinophils # (Manual) Basophils # (Manual) PT INR Fibrinogen dRVVT Confirm Interp Factor V Activity POC ABG pH POC ABG pCO2 POC ABG pO2 ABG pO2 ABG HCO3 ABG Base Excess ABG Hemoglobin Oxyhemoglobin Sodium Potassium Chloride Carbon Dioxide BUN Creatinine Glucose POC Glucose 139 H 120 H Lactic Acid Calcium Ionized Calcium Phosphorus Magnesium Direct Bilirubin AST ALT Alkaline Phosphatase Lactate Dehydrogenase Troponin T C-Reactive Protein Total Protein Albumin Prealbumin Triglycerides Cholesterol LDL Cholesterol Direct HDL Cholesterol 25-OH Vitamin D Total PTH Intact Urine pH Urine WBC (Auto) Urine Creatinine Urine Total Protein Fluid Total Protein Vancomycin Trough Rheumatoid Factor Complement C4 Miscellaneous Test Crossmatch 12/30/16 12/30/16 12/30/16 04:20 04:20 05:43 WBC 15.6 H RBC 2.81 L Hgb 8.0 L Hct 24.0 L MCV MCH MCHC RDW 16.9 H Plt Count Lymph % (Auto) [place] % (Auto) Lymph # [place] # 1.0 H Baso # Seg Neutrophils % 76.2 H Seg Neuts % (Manual) Lymphocytes % (Manual) Monocytes % (Manual) Eosinophils % (Manual) Basophils % (Manual) Nucleated RBC % Seg Neutrophils # 11.9 H Seg Neutrophils # Man Lymphocytes # (Manual) Monocytes # (Manual) Eosinophils # (Manual) Basophils # (Manual) PT INR Fibrinogen dRVVT Confirm Interp Factor V Activity POC ABG pH POC ABG pCO2 POC ABG pO2 ABG pO2 ABG HCO3 ABG Base Excess ABG Hemoglobin Oxyhemoglobin Sodium Potassium Chloride Carbon Dioxide BUN 87 H Creatinine 1.8 H Glucose 119 H POC Glucose 115 H Lactic Acid Calcium Ionized Calcium Phosphorus Magnesium Direct Bilirubin AST ALT Alkaline Phosphatase Lactate Dehydrogenase Troponin T C-Reactive Protein Total Protein Albumin Prealbumin Triglycerides Cholesterol LDL Cholesterol Direct HDL Cholesterol 25-OH Vitamin D Total PTH Intact Urine pH Urine WBC (Auto) Urine Creatinine Urine Total Protein Fluid Total Protein Vancomycin Trough Rheumatoid Factor Complement C4 Miscellaneous Test Crossmatch 12/30/16 12/30/16 12/31/16 17:27 23:21 04:00 WBC RBC Hgb Hct MCV MCH MCHC RDW Plt Count Lymph % (Auto) [place] % (Auto) Lymph # [place] # Baso # Seg Neutrophils % Seg Neuts % (Manual) Lymphocytes % (Manual) Monocytes % (Manual) Eosinophils % (Manual) Basophils % (Manual) Nucleated RBC % Seg Neutrophils # Seg Neutrophils # Man Lymphocytes # (Manual) Monocytes # (Manual) Eosinophils # (Manual) Basophils # (Manual) PT INR Fibrinogen dRVVT Confirm Interp Factor V Activity POC ABG pH POC ABG pCO2 POC ABG pO2 ABG pO2 ABG HCO3 ABG Base Excess ABG Hemoglobin Oxyhemoglobin Sodium Potassium Chloride Carbon Dioxide BUN 59 H Creatinine Glucose 298 H POC Glucose 144 H 125 H Lactic Acid Calcium Ionized Calcium Phosphorus Magnesium Direct Bilirubin AST ALT Alkaline Phosphatase Lactate Dehydrogenase Troponin T C-Reactive Protein Total Protein Albumin Prealbumin Triglycerides Cholesterol LDL Cholesterol Direct HDL Cholesterol 25-OH Vitamin D Total PTH Intact Urine pH Urine WBC (Auto) Urine Creatinine Urine Total Protein Fluid Total Protein Vancomycin Trough Rheumatoid Factor Complement C4 Miscellaneous Test Crossmatch 12/31/16 12/31/16 12/31/16 05:11 12:18 18:17 WBC RBC Hgb Hct MCV MCH MCHC RDW Plt Count Lymph % (Auto) [place] % (Auto) Lymph # [place] # Baso # Seg Neutrophils % Seg Neuts % (Manual) Lymphocytes % (Manual) Monocytes % (Manual) Eosinophils % (Manual) Basophils % (Manual) Nucleated RBC % Seg Neutrophils # Seg Neutrophils # Man Lymphocytes # (Manual) Monocytes # (Manual) Eosinophils # (Manual) Basophils # (Manual) PT INR Fibrinogen dRVVT Confirm Interp Factor V Activity POC ABG pH POC ABG pCO2 POC ABG pO2 ABG pO2 ABG HCO3 ABG Base Excess ABG Hemoglobin Oxyhemoglobin Sodium Potassium Chloride Carbon Dioxide BUN Creatinine Glucose POC Glucose 167 H 125 H 133 H Lactic Acid Calcium Ionized Calcium Phosphorus Magnesium Direct Bilirubin AST ALT Alkaline Phosphatase Lactate Dehydrogenase Troponin T C-Reactive Protein Total Protein Albumin Prealbumin Triglycerides Cholesterol LDL Cholesterol Direct HDL Cholesterol 25-OH Vitamin D Total PTH Intact Urine pH Urine WBC (Auto) Urine Creatinine Urine Total Protein Fluid Total Protein Vancomycin Trough Rheumatoid Factor Complement C4 Miscellaneous Test Crossmatch 12/31/16 01/01/17 01/01/17 23:55 05:00 05:12 WBC RBC Hgb Hct MCV MCH MCHC RDW Plt Count Lymph % (Auto) [place] % (Auto) Lymph # [place] # Baso # Seg Neutrophils % Seg Neuts % (Manual) Lymphocytes % (Manual) Monocytes % (Manual) Eosinophils % (Manual) Basophils % (Manual) Nucleated RBC % Seg Neutrophils # Seg Neutrophils # Man Lymphocytes # (Manual) Monocytes # (Manual) Eosinophils # (Manual) Basophils # (Manual) PT INR Fibrinogen dRVVT Confirm Interp Factor V Activity POC ABG pH POC ABG pCO2 POC ABG pO2 ABG pO2 ABG HCO3 ABG Base Excess ABG Hemoglobin Oxyhemoglobin Sodium Potassium Chloride Carbon Dioxide BUN 76 H Creatinine 1.5 H Glucose 109 H POC Glucose 129 H 129 H Lactic Acid Calcium Ionized Calcium Phosphorus Magnesium Direct Bilirubin AST ALT Alkaline Phosphatase 536 H Lactate Dehydrogenase Troponin T C-Reactive Protein Total Protein Albumin 1.5 L Prealbumin Triglycerides Cholesterol LDL Cholesterol Direct HDL Cholesterol 25-OH Vitamin D Total PTH Intact Urine pH Urine WBC (Auto) Urine Creatinine Urine Total Protein Fluid Total Protein Vancomycin Trough Rheumatoid Factor Complement C4 Miscellaneous Test Crossmatch 01/01/17 01/01/17 01/01/17 12:25 17:01 23:32 WBC RBC Hgb Hct MCV MCH MCHC RDW Plt Count Lymph % (Auto) [place] % (Auto) Lymph # [place] # Baso # Seg Neutrophils % Seg Neuts % (Manual) Lymphocytes % (Manual) Monocytes % (Manual) Eosinophils % (Manual) Basophils % (Manual) Nucleated RBC % Seg Neutrophils # Seg Neutrophils # Man Lymphocytes # (Manual) Monocytes # (Manual) Eosinophils # (Manual) Basophils # (Manual) PT INR Fibrinogen dRVVT Confirm Interp Factor V Activity POC ABG pH POC ABG pCO2 POC ABG pO2 ABG pO2 ABG HCO3 ABG Base Excess ABG Hemoglobin Oxyhemoglobin Sodium Potassium Chloride Carbon Dioxide BUN Creatinine Glucose POC Glucose 140 H 142 H 112 H Lactic Acid Calcium Ionized Calcium Phosphorus Magnesium Direct Bilirubin AST ALT Alkaline Phosphatase Lactate Dehydrogenase Troponin T C-Reactive Protein Total Protein Albumin Prealbumin Triglycerides Cholesterol LDL Cholesterol Direct HDL Cholesterol 25-OH Vitamin D Total PTH Intact Urine pH Urine WBC (Auto) Urine Creatinine Urine Total Protein Fluid Total Protein Vancomycin Trough Rheumatoid Factor Complement C4 Miscellaneous Test Crossmatch 01/02/17 01/02/17 01/02/17 04:56 06:00 11:37 WBC RBC Hgb Hct MCV MCH MCHC RDW Plt Count Lymph % (Auto) [place] % (Auto) Lymph # [place] # Baso # Seg Neutrophils % Seg Neuts % (Manual) Lymphocytes % (Manual) Monocytes % (Manual) Eosinophils % (Manual) Basophils % (Manual) Nucleated RBC % Seg Neutrophils # Seg Neutrophils # Man Lymphocytes # (Manual) Monocytes # (Manual) Eosinophils # (Manual) Basophils # (Manual) PT INR Fibrinogen dRVVT Confirm Interp Factor V Activity POC ABG pH POC ABG pCO2 POC ABG pO2 ABG pO2 ABG HCO3 ABG Base Excess ABG Hemoglobin Oxyhemoglobin Sodium Potassium Chloride Carbon Dioxide BUN 88 H Creatinine 1.7 H Glucose 113 H POC Glucose 136 H 200 H Lactic Acid Calcium Ionized Calcium Phosphorus Magnesium Direct Bilirubin AST ALT Alkaline Phosphatase Lactate Dehydrogenase Troponin T C-Reactive Protein Total Protein Albumin Prealbumin Triglycerides Cholesterol LDL Cholesterol Direct HDL Cholesterol 25-OH Vitamin D Total PTH Intact Urine pH Urine WBC (Auto) Urine Creatinine Urine Total Protein Fluid Total Protein Vancomycin Trough Rheumatoid Factor Complement C4 Miscellaneous Test Crossmatch 01/02/17 01/02/17 01/03/17 17:42 22:52 04:54 WBC RBC Hgb Hct MCV MCH MCHC RDW Plt Count Lymph % (Auto) [place] % (Auto) Lymph # [place] # Baso # Seg Neutrophils % Seg Neuts % (Manual) Lymphocytes % (Manual) Monocytes % (Manual) Eosinophils % (Manual) Basophils % (Manual) Nucleated RBC % Seg Neutrophils # Seg Neutrophils # Man Lymphocytes # (Manual) Monocytes # (Manual) Eosinophils # (Manual) Basophils # (Manual) PT INR Fibrinogen dRVVT Confirm Interp Factor V Activity POC ABG pH POC ABG pCO2 POC ABG pO2 ABG pO2 ABG HCO3 ABG Base Excess ABG Hemoglobin Oxyhemoglobin Sodium Potassium Chloride Carbon Dioxide BUN Creatinine Glucose POC Glucose 112 H 133 H 111 H Lactic Acid Calcium Ionized Calcium Phosphorus Magnesium Direct Bilirubin AST ALT Alkaline Phosphatase Lactate Dehydrogenase Troponin T C-Reactive Protein Total Protein Albumin Prealbumin Triglycerides Cholesterol LDL Cholesterol Direct HDL Cholesterol 25-OH Vitamin D Total PTH Intact Urine pH Urine WBC (Auto) Urine Creatinine Urine Total Protein Fluid Total Protein Vancomycin Trough Rheumatoid Factor Complement C4 Miscellaneous Test Crossmatch 01/03/17 01/03/17 01/03/17 05:00 05:00 14:02 WBC 11.2 H RBC 2.56 L Hgb 7.2 L Hct 22.3 L MCV MCH MCHC RDW 17.3 H Plt Count Lymph % (Auto) [place] % (Auto) 10.0 H Lymph # [place] # 1.1 H Baso # Seg Neutrophils % 70.5 H Seg Neuts % (Manual) Lymphocytes % (Manual) Monocytes % (Manual) Eosinophils % (Manual) Basophils % (Manual) Nucleated RBC % Seg Neutrophils # 7.9 H Seg Neutrophils # Man Lymphocytes # (Manual) Monocytes # (Manual) Eosinophils # (Manual) Basophils # (Manual) PT INR Fibrinogen dRVVT Confirm Interp Factor V Activity POC ABG pH POC ABG pCO2 POC ABG pO2 ABG pO2 ABG HCO3 ABG Base Excess ABG Hemoglobin Oxyhemoglobin Sodium Potassium Chloride Carbon Dioxide BUN 60 H Creatinine 1.3 H Glucose 110 H POC Glucose 119 H Lactic Acid Calcium Ionized Calcium Phosphorus Magnesium Direct Bilirubin AST ALT Alkaline Phosphatase Lactate Dehydrogenase Troponin T C-Reactive Protein Total Protein Albumin Prealbumin Triglycerides Cholesterol LDL Cholesterol Direct HDL Cholesterol 25-OH Vitamin D Total PTH Intact Urine pH Urine WBC (Auto) Urine Creatinine Urine Total Protein Fluid Total Protein Vancomycin Trough Rheumatoid Factor Complement C4 Miscellaneous Test Crossmatch 01/03/17 01/03/17 01/04/17 18:13 23:40 05:57 WBC RBC Hgb Hct MCV MCH MCHC RDW Plt Count Lymph % (Auto) [place] % (Auto) Lymph # [place] # Baso # Seg Neutrophils % Seg Neuts % (Manual) Lymphocytes % (Manual) Monocytes % (Manual) Eosinophils % (Manual) Basophils % (Manual) Nucleated RBC % Seg Neutrophils # Seg Neutrophils # Man Lymphocytes # (Manual) Monocytes # (Manual) Eosinophils # (Manual) Basophils # (Manual) PT INR Fibrinogen dRVVT Confirm Interp Factor V Activity POC ABG pH POC ABG pCO2 POC ABG pO2 ABG pO2 ABG HCO3 ABG Base Excess ABG Hemoglobin Oxyhemoglobin Sodium Potassium Chloride Carbon Dioxide BUN Creatinine Glucose POC Glucose 107 H 129 H 111 H Lactic Acid Calcium Ionized Calcium Phosphorus Magnesium Direct Bilirubin AST ALT Alkaline Phosphatase Lactate Dehydrogenase Troponin T C-Reactive Protein Total Protein Albumin Prealbumin Triglycerides Cholesterol LDL Cholesterol Direct HDL Cholesterol 25-OH Vitamin D Total PTH Intact Urine pH Urine WBC (Auto) Urine Creatinine Urine Total Protein Fluid Total Protein Vancomycin Trough Rheumatoid Factor Complement C4 Miscellaneous Test Crossmatch 01/04/17 01/04/17 01/04/17 12:46 15:27 17:11 WBC RBC Hgb Hct MCV MCH MCHC RDW Plt Count Lymph % (Auto) [place] % (Auto) Lymph # [place] # Baso # Seg Neutrophils % Seg Neuts % (Manual) Lymphocytes % (Manual) Monocytes % (Manual) Eosinophils % (Manual) Basophils % (Manual) Nucleated RBC % Seg Neutrophils # Seg Neutrophils # Man Lymphocytes # (Manual) Monocytes # (Manual) Eosinophils # (Manual) Basophils # (Manual) PT INR Fibrinogen dRVVT Confirm Interp Factor V Activity POC ABG pH POC ABG pCO2 POC ABG pO2 ABG pO2 ABG HCO3 ABG Base Excess ABG Hemoglobin Oxyhemoglobin Sodium Potassium Chloride Carbon Dioxide BUN 43 H Creatinine Glucose 124 H POC Glucose 159 H 125 H Lactic Acid Calcium 8.0 L Ionized Calcium Phosphorus 2.10 L Magnesium Direct Bilirubin AST ALT Alkaline Phosphatase Lactate Dehydrogenase Troponin T C-Reactive Protein Total Protein Albumin Prealbumin Triglycerides Cholesterol LDL Cholesterol Direct HDL Cholesterol 25-OH Vitamin D Total PTH Intact Urine pH Urine WBC (Auto) Urine Creatinine Urine Total Protein Fluid Total Protein Vancomycin Trough Rheumatoid Factor Complement C4 Miscellaneous Test Crossmatch 01/04/17 01/05/17 01/05/17 23:31 04:00 05:46 WBC RBC Hgb Hct MCV MCH MCHC RDW Plt Count Lymph % (Auto) [place] % (Auto) Lymph # [place] # Baso # Seg Neutrophils % Seg Neuts % (Manual) Lymphocytes % (Manual) Monocytes % (Manual) Eosinophils % (Manual) Basophils % (Manual) Nucleated RBC % Seg Neutrophils # Seg Neutrophils # Man Lymphocytes # (Manual) Monocytes # (Manual) Eosinophils # (Manual) Basophils # (Manual) PT INR Fibrinogen dRVVT Confirm Interp Factor V Activity POC ABG pH POC ABG pCO2 POC ABG pO2 ABG pO2 ABG HCO3 ABG Base Excess ABG Hemoglobin Oxyhemoglobin Sodium Potassium Chloride Carbon Dioxide BUN 52 H Creatinine 1.3 H Glucose 113 H POC Glucose 123 H 118 H Lactic Acid Calcium Ionized Calcium Phosphorus 2.40 L Magnesium Direct Bilirubin AST ALT Alkaline Phosphatase Lactate Dehydrogenase Troponin T C-Reactive Protein Total Protein Albumin Prealbumin Triglycerides Cholesterol LDL Cholesterol Direct HDL Cholesterol 25-OH Vitamin D Total PTH Intact Urine pH Urine WBC (Auto) Urine Creatinine Urine Total Protein Fluid Total Protein Vancomycin Trough Rheumatoid Factor Complement C4 Miscellaneous Test Crossmatch 01/05/17 01/05/17 01/05/17 11:41 17:48 23:27 WBC RBC Hgb Hct MCV MCH MCHC RDW Plt Count Lymph % (Auto) [place] % (Auto) Lymph # [place] # Baso # Seg Neutrophils % Seg Neuts % (Manual) Lymphocytes % (Manual) Monocytes % (Manual) Eosinophils % (Manual) Basophils % (Manual) Nucleated RBC % Seg Neutrophils # Seg Neutrophils # Man Lymphocytes # (Manual) Monocytes # (Manual) Eosinophils # (Manual) Basophils # (Manual) PT INR Fibrinogen dRVVT Confirm Interp Factor V Activity POC ABG pH POC ABG pCO2 POC ABG pO2 ABG pO2 ABG HCO3 ABG Base Excess ABG Hemoglobin Oxyhemoglobin Sodium Potassium Chloride Carbon Dioxide BUN Creatinine Glucose POC Glucose 163 H 142 H 155 H Lactic Acid Calcium Ionized Calcium Phosphorus Magnesium Direct Bilirubin AST ALT Alkaline Phosphatase Lactate Dehydrogenase Troponin T C-Reactive Protein Total Protein Albumin Prealbumin Triglycerides Cholesterol LDL Cholesterol Direct HDL Cholesterol 25-OH Vitamin D Total PTH Intact Urine pH Urine WBC (Auto) Urine Creatinine Urine Total Protein Fluid Total Protein Vancomycin Trough Rheumatoid Factor Complement C4 Miscellaneous Test Crossmatch 01/06/17 01/06/17 01/06/17 05:20 07:35 11:18 WBC RBC Hgb Hct MCV MCH MCHC RDW Plt Count Lymph % (Auto) [place] % (Auto) Lymph # [place] # Baso # Seg Neutrophils % Seg Neuts % (Manual) Lymphocytes % (Manual) Monocytes % (Manual) Eosinophils % (Manual) Basophils % (Manual) Nucleated RBC % Seg Neutrophils # Seg Neutrophils # Man Lymphocytes # (Manual) Monocytes # (Manual) Eosinophils # (Manual) Basophils # (Manual) PT INR Fibrinogen dRVVT Confirm Interp Factor V Activity POC ABG pH POC ABG pCO2 POC ABG pO2 ABG pO2 ABG HCO3 ABG Base Excess ABG Hemoglobin Oxyhemoglobin Sodium Potassium Chloride Carbon Dioxide BUN 74 H Creatinine 1.6 H Glucose 135 H POC Glucose 108 H 149 H Lactic Acid Calcium Ionized Calcium Phosphorus Magnesium Direct Bilirubin AST ALT Alkaline Phosphatase Lactate Dehydrogenase Troponin T C-Reactive Protein Total Protein Albumin Prealbumin Triglycerides Cholesterol LDL Cholesterol Direct HDL Cholesterol 25-OH Vitamin D Total PTH Intact Urine pH Urine WBC (Auto) Urine Creatinine Urine Total Protein Fluid Total Protein Vancomycin Trough Rheumatoid Factor Complement C4 Miscellaneous Test Crossmatch 01/06/17 01/07/17 01/07/17 17:17 00:23 05:31 WBC RBC Hgb Hct MCV MCH MCHC RDW Plt Count Lymph % (Auto) [place] % (Auto) Lymph # [place] # Baso # Seg Neutrophils % Seg Neuts % (Manual) Lymphocytes % (Manual) Monocytes % (Manual) Eosinophils % (Manual) Basophils % (Manual) Nucleated RBC % Seg Neutrophils # Seg Neutrophils # Man Lymphocytes # (Manual) Monocytes # (Manual) Eosinophils # (Manual) Basophils # (Manual) PT INR Fibrinogen dRVVT Confirm Interp Factor V Activity POC ABG pH POC ABG pCO2 POC ABG pO2 ABG pO2 ABG HCO3 ABG Base Excess ABG Hemoglobin Oxyhemoglobin Sodium Potassium Chloride Carbon Dioxide BUN Creatinine Glucose POC Glucose 146 H 165 H 153 H Lactic Acid Calcium Ionized Calcium Phosphorus Magnesium Direct Bilirubin AST ALT Alkaline Phosphatase Lactate Dehydrogenase Troponin T C-Reactive Protein Total Protein Albumin Prealbumin Triglycerides Cholesterol LDL Cholesterol Direct HDL Cholesterol 25-OH Vitamin D Total PTH Intact Urine pH Urine WBC (Auto) Urine Creatinine Urine Total Protein Fluid Total Protein Vancomycin Trough Rheumatoid Factor Complement C4 Miscellaneous Test Crossmatch 01/07/17 01/07/17 01/07/17 06:00 11:39 17:11 WBC RBC Hgb Hct MCV MCH MCHC RDW Plt Count Lymph % (Auto) [place] % (Auto) Lymph # [place] # Baso # Seg Neutrophils % Seg Neuts % (Manual) Lymphocytes % (Manual) Monocytes % (Manual) Eosinophils % (Manual) Basophils % (Manual) Nucleated RBC % Seg Neutrophils # Seg Neutrophils # Man Lymphocytes # (Manual) Monocytes # (Manual) Eosinophils # (Manual) Basophils # (Manual) PT INR Fibrinogen dRVVT Confirm Interp Factor V Activity POC ABG pH POC ABG pCO2 POC ABG pO2 ABG pO2 ABG HCO3 ABG Base Excess ABG Hemoglobin Oxyhemoglobin Sodium Potassium Chloride Carbon Dioxide BUN 42 H Creatinine Glucose 175 H POC Glucose 163 H 163 H Lactic Acid Calcium Ionized Calcium Phosphorus 2.40 L D Magnesium Direct Bilirubin AST ALT Alkaline Phosphatase Lactate Dehydrogenase Troponin T C-Reactive Protein Total Protein Albumin Prealbumin Triglycerides Cholesterol LDL Cholesterol Direct HDL Cholesterol 25-OH Vitamin D Total PTH Intact Urine pH Urine WBC (Auto) Urine Creatinine Urine Total Protein Fluid Total Protein Vancomycin Trough Rheumatoid Factor Complement C4 Miscellaneous Test Crossmatch 01/07/17 01/08/17 01/08/17 23:40 05:00 05:00 WBC 27.4 H RBC 2.27 L Hgb 6.1 L Hct 20.4 L MCV MCH 27 L MCHC RDW 17.8 H Plt Count Lymph % (Auto) [place] % (Auto) Lymph # [place] # Baso # Seg Neutrophils % Seg Neuts % (Manual) Lymphocytes % (Manual) Monocytes % (Manual) Eosinophils % (Manual) Basophils % (Manual) Nucleated RBC % Seg Neutrophils # Seg Neutrophils # Man Lymphocytes # (Manual) Monocytes # (Manual) Eosinophils # (Manual) Basophils # (Manual) PT INR Fibrinogen dRVVT Confirm Interp Factor V Activity POC ABG pH POC ABG pCO2 POC ABG pO2 ABG pO2 ABG HCO3 ABG Base Excess ABG Hemoglobin Oxyhemoglobin Sodium Potassium Chloride Carbon Dioxide 16 L D BUN 62 H Creatinine 1.6 H D Glucose 103 H POC Glucose 135 H Lactic Acid Calcium Ionized Calcium Phosphorus Magnesium Direct Bilirubin AST ALT Alkaline Phosphatase Lactate Dehydrogenase Troponin T C-Reactive Protein Total Protein Albumin Prealbumin Triglycerides Cholesterol LDL Cholesterol Direct HDL Cholesterol 25-OH Vitamin D Total PTH Intact Urine pH Urine WBC (Auto) Urine Creatinine Urine Total Protein Fluid Total Protein Vancomycin Trough Rheumatoid Factor Complement C4 Miscellaneous Test Crossmatch 01/08/17 01/08/17 01/08/17 05:25 10:37 10:37 WBC RBC Hgb Hct MCV MCH MCHC RDW Plt Count Lymph % (Auto) [place] % (Auto) Lymph # [place] # Baso # Seg Neutrophils % Seg Neuts % (Manual) Lymphocytes % (Manual) Monocytes % (Manual) Eosinophils % (Manual) Basophils % (Manual) Nucleated RBC % Seg Neutrophils # Seg Neutrophils # Man Lymphocytes # (Manual) Monocytes # (Manual) Eosinophils # (Manual) Basophils # (Manual) PT INR Fibrinogen dRVVT Confirm Interp Factor V Activity POC ABG pH POC ABG pCO2 POC ABG pO2 ABG pO2 ABG HCO3 ABG Base Excess ABG Hemoglobin Oxyhemoglobin Sodium Potassium Chloride Carbon Dioxide BUN Creatinine Glucose POC Glucose 106 H Lactic Acid Calcium Ionized Calcium Phosphorus Magnesium Direct Bilirubin AST ALT Alkaline Phosphatase Lactate Dehydrogenase Troponin T C-Reactive Protein 24.40 H Total Protein Albumin Prealbumin Triglycerides Cholesterol LDL Cholesterol Direct HDL Cholesterol 25-OH Vitamin D Total PTH Intact Urine pH Urine WBC (Auto) Urine Creatinine Urine Total Protein Fluid Total Protein Vancomycin Trough Rheumatoid Factor Complement C4 Miscellaneous Test Crossmatch See Detail 01/08/17 01/08/17 01/08/17 10:37 11:33 15:15 WBC RBC Hgb Hct MCV MCH MCHC RDW Plt Count Lymph % (Auto) [place] % (Auto) Lymph # [place] # Baso # Seg Neutrophils % Seg Neuts % (Manual) Lymphocytes % (Manual) Monocytes % (Manual) Eosinophils % (Manual) Basophils % (Manual) Nucleated RBC % Seg Neutrophils # Seg Neutrophils # Man Lymphocytes # (Manual) Monocytes # (Manual) Eosinophils # (Manual) Basophils # (Manual) PT INR Fibrinogen dRVVT Confirm Interp Factor V Activity POC ABG pH POC ABG pCO2 POC ABG pO2 ABG pO2 ABG HCO3 ABG Base Excess ABG Hemoglobin Oxyhemoglobin Sodium Potassium Chloride Carbon Dioxide BUN Creatinine Glucose POC Glucose 157 H Lactic Acid 9.70 H* 9.10 H* Calcium Ionized Calcium Phosphorus Magnesium Direct Bilirubin AST ALT Alkaline Phosphatase Lactate Dehydrogenase Troponin T C-Reactive Protein Total Protein Albumin Prealbumin Triglycerides Cholesterol LDL Cholesterol Direct HDL Cholesterol 25-OH Vitamin D Total PTH Intact Urine pH Urine WBC (Auto) Urine Creatinine Urine Total Protein Fluid Total Protein Vancomycin Trough Rheumatoid Factor Complement C4 Miscellaneous Test Crossmatch 01/08/17 01/08/17 01/09/17 17:19 23:12 04:40 WBC RBC Hgb Hct MCV MCH MCHC RDW Plt Count Lymph % (Auto) [place] % (Auto) Lymph # [place] # Baso # Seg Neutrophils % Seg Neuts % (Manual) Lymphocytes % (Manual) Monocytes % (Manual) Eosinophils % (Manual) Basophils % (Manual) Nucleated RBC % Seg Neutrophils # Seg Neutrophils # Man Lymphocytes # (Manual) Monocytes # (Manual) Eosinophils # (Manual) Basophils # (Manual) PT INR Fibrinogen dRVVT Confirm Interp Factor V Activity POC ABG pH POC ABG pCO2 POC ABG pO2 ABG pO2 ABG HCO3 ABG Base Excess ABG Hemoglobin Oxyhemoglobin Sodium 147 H Potassium Chloride Carbon Dioxide BUN 82 H Creatinine 1.8 H Glucose 137 H POC Glucose 164 H 157 H Lactic Acid Calcium Ionized Calcium Phosphorus Magnesium Direct Bilirubin AST ALT Alkaline Phosphatase Lactate Dehydrogenase Troponin T C-Reactive Protein Total Protein Albumin Prealbumin Triglycerides Cholesterol LDL Cholesterol Direct HDL Cholesterol 25-OH Vitamin D Total PTH Intact Urine pH Urine WBC (Auto) Urine Creatinine Urine Total Protein Fluid Total Protein Vancomycin Trough Rheumatoid Factor Complement C4 Miscellaneous Test Crossmatch 01/09/17 01/09/17 01/09/17 05:42 08:22 10:57 WBC RBC Hgb Hct MCV MCH MCHC RDW Plt Count Lymph % (Auto) [place] % (Auto) Lymph # [place] # Baso # Seg Neutrophils % Seg Neuts % (Manual) Lymphocytes % (Manual) Monocytes % (Manual) Eosinophils % (Manual) Basophils % (Manual) Nucleated RBC % Seg Neutrophils # Seg Neutrophils # Man Lymphocytes # (Manual) Monocytes # (Manual) Eosinophils # (Manual) Basophils # (Manual) PT INR Fibrinogen dRVVT Confirm Interp Factor V Activity POC ABG pH POC ABG pCO2 POC ABG pO2 ABG pO2 ABG HCO3 ABG Base Excess ABG Hemoglobin Oxyhemoglobin Sodium Potassium Chloride Carbon Dioxide BUN Creatinine Glucose POC Glucose 156 H 122 H Lactic Acid 2.30 H* Calcium Ionized Calcium Phosphorus Magnesium Direct Bilirubin AST ALT Alkaline Phosphatase Lactate Dehydrogenase Troponin T C-Reactive Protein Total Protein Albumin Prealbumin Triglycerides Cholesterol LDL Cholesterol Direct HDL Cholesterol 25-OH Vitamin D Total PTH Intact Urine pH Urine WBC (Auto) Urine Creatinine Urine Total Protein Fluid Total Protein Vancomycin Trough Rheumatoid Factor Complement C4 Miscellaneous Test Crossmatch 01/09/17 01/09/17 01/09/17 13:30 17:14 18:45 WBC RBC Hgb Hct MCV MCH MCHC RDW Plt Count Lymph % (Auto) [place] % (Auto) Lymph # [place] # Baso # Seg Neutrophils % Seg Neuts % (Manual) Lymphocytes % (Manual) Monocytes % (Manual) Eosinophils % (Manual) Basophils % (Manual) Nucleated RBC % Seg Neutrophils # Seg Neutrophils # Man Lymphocytes # (Manual) Monocytes # (Manual) Eosinophils # (Manual) Basophils # (Manual) PT INR Fibrinogen dRVVT Confirm Interp Factor V Activity POC ABG pH POC ABG pCO2 POC ABG pO2 ABG pO2 ABG HCO3 ABG Base Excess ABG Hemoglobin Oxyhemoglobin Sodium Potassium Chloride Carbon Dioxide BUN Creatinine Glucose POC Glucose 127 H Lactic Acid Calcium Ionized Calcium Phosphorus Magnesium Direct Bilirubin AST ALT Alkaline Phosphatase Lactate Dehydrogenase Troponin T C-Reactive Protein 24.70 H Total Protein Albumin Prealbumin Triglycerides Cholesterol LDL Cholesterol Direct HDL Cholesterol 25-OH Vitamin D Total PTH Intact Urine pH Urine WBC (Auto) Urine Creatinine Urine Total Protein Fluid Total Protein Vancomycin Trough Rheumatoid Factor Complement C4 Miscellaneous Test Flexitest 1 H Crossmatch 01/10/17 01/10/17 01/10/17 01:21 04:00 04:00 WBC 18.1 H RBC 3.22 L Hgb 8.8 L Hct 27.0 L D MCV MCH 27 L MCHC RDW 17.0 H Plt Count Lymph % (Auto) [place] % (Auto) Lymph # [place] # Baso # Seg Neutrophils % Seg Neuts % (Manual) Lymphocytes % (Manual) Monocytes % (Manual) Eosinophils % (Manual) Basophils % (Manual) Nucleated RBC % Seg Neutrophils # Seg Neutrophils # Man Lymphocytes # (Manual) Monocytes # (Manual) Eosinophils # (Manual) Basophils # (Manual) PT INR Fibrinogen dRVVT Confirm Interp Factor V Activity POC ABG pH POC ABG pCO2 POC ABG pO2 ABG pO2 ABG HCO3 ABG Base Excess ABG Hemoglobin Oxyhemoglobin Sodium Potassium Chloride Carbon Dioxide BUN 59 H Creatinine 1.3 H Glucose 122 H POC Glucose 160 H Lactic Acid Calcium Ionized Calcium Phosphorus Magnesium Direct Bilirubin AST ALT Alkaline Phosphatase Lactate Dehydrogenase Troponin T C-Reactive Protein Total Protein Albumin Prealbumin Triglycerides Cholesterol LDL Cholesterol Direct HDL Cholesterol 25-OH Vitamin D Total PTH Intact Urine pH Urine WBC (Auto) Urine Creatinine Urine Total Protein Fluid Total Protein Vancomycin Trough Rheumatoid Factor Complement C4 Miscellaneous Test Crossmatch 01/10/17 01/10/17 01/10/17 05:36 12:14 17:55 WBC RBC Hgb Hct MCV MCH MCHC RDW Plt Count Lymph % (Auto) [place] % (Auto) Lymph # [place] # Baso # Seg Neutrophils % Seg Neuts % (Manual) Lymphocytes % (Manual) Monocytes % (Manual) Eosinophils % (Manual) Basophils % (Manual) Nucleated RBC % Seg Neutrophils # Seg Neutrophils # Man Lymphocytes # (Manual) Monocytes # (Manual) Eosinophils # (Manual) Basophils # (Manual) PT INR Fibrinogen dRVVT Confirm Interp Factor V Activity POC ABG pH POC ABG pCO2 POC ABG pO2 ABG pO2 ABG HCO3 ABG Base Excess ABG Hemoglobin Oxyhemoglobin Sodium Potassium Chloride Carbon Dioxide BUN Creatinine Glucose POC Glucose 163 H 120 H 144 H Lactic Acid Calcium Ionized Calcium Phosphorus Magnesium Direct Bilirubin AST ALT Alkaline Phosphatase Lactate Dehydrogenase Troponin T C-Reactive Protein Total Protein Albumin Prealbumin Triglycerides Cholesterol LDL Cholesterol Direct HDL Cholesterol 25-OH Vitamin D Total PTH Intact Urine pH Urine WBC (Auto) Urine Creatinine Urine Total Protein Fluid Total Protein Vancomycin Trough Rheumatoid Factor Complement C4 Miscellaneous Test Crossmatch 01/11/17 01/11/17 01/11/17 00:09 04:00 04:00 WBC 15.8 H RBC 3.04 L Hgb 8.2 L Hct 25.5 L MCV MCH 27 L MCHC RDW 17.3 H Plt Count Lymph % (Auto) [place] % (Auto) Lymph # [place] # Baso # Seg Neutrophils % Seg Neuts % (Manual) Lymphocytes % (Manual) Monocytes % (Manual) Eosinophils % (Manual) Basophils % (Manual) Nucleated RBC % Seg Neutrophils # Seg Neutrophils # Man Lymphocytes # (Manual) Monocytes # (Manual) Eosinophils # (Manual) Basophils # (Manual) PT INR Fibrinogen dRVVT Confirm Interp Factor V Activity POC ABG pH POC ABG pCO2 POC ABG pO2 ABG pO2 ABG HCO3 ABG Base Excess ABG Hemoglobin Oxyhemoglobin Sodium Potassium Chloride Carbon Dioxide BUN 78 H Creatinine 1.6 H Glucose 109 H POC Glucose 122 H Lactic Acid Calcium Ionized Calcium Phosphorus Magnesium Direct Bilirubin AST ALT Alkaline Phosphatase Lactate Dehydrogenase Troponin T C-Reactive Protein Total Protein Albumin Prealbumin Triglycerides Cholesterol LDL Cholesterol Direct HDL Cholesterol 25-OH Vitamin D Total PTH Intact Urine pH Urine WBC (Auto) Urine Creatinine Urine Total Protein Fluid Total Protein Vancomycin Trough Rheumatoid Factor Complement C4 Miscellaneous Test Crossmatch 01/11/17 01/11/17 01/11/17 12:46 18:23 23:42 WBC RBC Hgb Hct MCV MCH MCHC RDW Plt Count Lymph % (Auto) [place] % (Auto) Lymph # [place] # Baso # Seg Neutrophils % Seg Neuts % (Manual) Lymphocytes % (Manual) Monocytes % (Manual) Eosinophils % (Manual) Basophils % (Manual) Nucleated RBC % Seg Neutrophils # Seg Neutrophils # Man Lymphocytes # (Manual) Monocytes # (Manual) Eosinophils # (Manual) Basophils # (Manual) PT INR Fibrinogen dRVVT Confirm Interp Factor V Activity POC ABG pH POC ABG pCO2 POC ABG pO2 ABG pO2 ABG HCO3 ABG Base Excess ABG Hemoglobin Oxyhemoglobin Sodium Potassium Chloride Carbon Dioxide BUN Creatinine Glucose POC Glucose 148 H 125 H 124 H Lactic Acid Calcium Ionized Calcium Phosphorus Magnesium Direct Bilirubin AST ALT Alkaline Phosphatase Lactate Dehydrogenase Troponin T C-Reactive Protein Total Protein Albumin Prealbumin Triglycerides Cholesterol LDL Cholesterol Direct HDL Cholesterol 25-OH Vitamin D Total PTH Intact Urine pH Urine WBC (Auto) Urine Creatinine Urine Total Protein Fluid Total Protein Vancomycin Trough Rheumatoid Factor Complement C4 Miscellaneous Test Crossmatch 01/12/17 01/12/17 01/12/17 04:30 04:30 05:47 WBC 15.8 H RBC 3.31 L Hgb 8.9 L Hct 27.9 L MCV MCH 27 L MCHC RDW 17.4 H Plt Count Lymph % (Auto) [place] % (Auto) Lymph # [place] # Baso # Seg Neutrophils % Seg Neuts % (Manual) Lymphocytes % (Manual) Monocytes % (Manual) Eosinophils % (Manual) Basophils % (Manual) Nucleated RBC % Seg Neutrophils # Seg Neutrophils # Man Lymphocytes # (Manual) Monocytes # (Manual) Eosinophils # (Manual) Basophils # (Manual) PT INR Fibrinogen dRVVT Confirm Interp Factor V Activity POC ABG pH POC ABG pCO2 POC ABG pO2 ABG pO2 ABG HCO3 ABG Base Excess ABG Hemoglobin Oxyhemoglobin Sodium Potassium Chloride Carbon Dioxide BUN 57 H Creatinine Glucose 121 H POC Glucose 110 H Lactic Acid Calcium Ionized Calcium Phosphorus 2.10 L Magnesium Direct Bilirubin AST ALT Alkaline Phosphatase Lactate Dehydrogenase Troponin T C-Reactive Protein Total Protein Albumin Prealbumin Triglycerides Cholesterol LDL Cholesterol Direct HDL Cholesterol 25-OH Vitamin D Total PTH Intact Urine pH Urine WBC (Auto) Urine Creatinine Urine Total Protein Fluid Total Protein Vancomycin Trough Rheumatoid Factor Complement C4 Miscellaneous Test Crossmatch 01/12/17 01/12/17 01/12/17 11:35 17:45 23:14 WBC RBC Hgb Hct MCV MCH MCHC RDW Plt Count Lymph % (Auto) [place] % (Auto) Lymph # [place] # Baso # Seg Neutrophils % Seg Neuts % (Manual) Lymphocytes % (Manual) Monocytes % (Manual) Eosinophils % (Manual) Basophils % (Manual) Nucleated RBC % Seg Neutrophils # Seg Neutrophils # Man Lymphocytes # (Manual) Monocytes # (Manual) Eosinophils # (Manual) Basophils # (Manual) PT INR Fibrinogen dRVVT Confirm Interp Factor V Activity POC ABG pH POC ABG pCO2 POC ABG pO2 ABG pO2 ABG HCO3 ABG Base Excess ABG Hemoglobin Oxyhemoglobin Sodium Potassium Chloride Carbon Dioxide BUN Creatinine Glucose POC Glucose 146 H 117 H 123 H Lactic Acid Calcium Ionized Calcium Phosphorus Magnesium Direct Bilirubin AST ALT Alkaline Phosphatase Lactate Dehydrogenase Troponin T C-Reactive Protein Total Protein Albumin Prealbumin Triglycerides Cholesterol LDL Cholesterol Direct HDL Cholesterol 25-OH Vitamin D Total PTH Intact Urine pH Urine WBC (Auto) Urine Creatinine Urine Total Protein Fluid Total Protein Vancomycin Trough Rheumatoid Factor Complement C4 Miscellaneous Test Crossmatch 01/13/17 01/13/17 01/13/17 05:32 06:00 12:10 WBC RBC Hgb Hct MCV MCH MCHC RDW Plt Count Lymph % (Auto) [place] % (Auto) Lymph # [place] # Baso # Seg Neutrophils % Seg Neuts % (Manual) Lymphocytes % (Manual) Monocytes % (Manual) Eosinophils % (Manual) Basophils % (Manual) Nucleated RBC % Seg Neutrophils # Seg Neutrophils # Man Lymphocytes # (Manual) Monocytes # (Manual) Eosinophils # (Manual) Basophils # (Manual) PT INR Fibrinogen dRVVT Confirm Interp Factor V Activity POC ABG pH POC ABG pCO2 POC ABG pO2 ABG pO2 ABG HCO3 ABG Base Excess ABG Hemoglobin Oxyhemoglobin Sodium Potassium Chloride Carbon Dioxide BUN 80 H Creatinine 1.4 H Glucose 106 H POC Glucose 106 H Lactic Acid Calcium Ionized Calcium Phosphorus Magnesium Direct Bilirubin AST ALT Alkaline Phosphatase Lactate Dehydrogenase Troponin T C-Reactive Protein Total Protein Albumin Prealbumin Triglycerides Cholesterol LDL Cholesterol Direct HDL Cholesterol 25-OH Vitamin D Total PTH Intact Urine pH Urine WBC (Auto) Urine Creatinine Urine Total Protein Fluid Total Protein 3.0 L Vancomycin Trough Rheumatoid Factor Complement C4 Miscellaneous Test Crossmatch 01/13/17 01/13/17 01/13/17 12:17 15:50 17:30 WBC RBC Hgb Hct MCV MCH MCHC RDW Plt Count Lymph % (Auto) [place] % (Auto) Lymph # [place] # Baso # Seg Neutrophils % Seg Neuts % (Manual) Lymphocytes % (Manual) Monocytes % (Manual) Eosinophils % (Manual) Basophils % (Manual) Nucleated RBC % Seg Neutrophils # Seg Neutrophils # Man Lymphocytes # (Manual) Monocytes # (Manual) Eosinophils # (Manual) Basophils # (Manual) PT 15.4 H INR 1.16 H Fibrinogen dRVVT Confirm Interp Factor V Activity POC ABG pH POC ABG pCO2 POC ABG pO2 ABG pO2 ABG HCO3 ABG Base Excess ABG Hemoglobin Oxyhemoglobin Sodium Potassium Chloride Carbon Dioxide BUN Creatinine Glucose POC Glucose 168 H 110 H Lactic Acid Calcium Ionized Calcium Phosphorus Magnesium Direct Bilirubin AST ALT Alkaline Phosphatase Lactate Dehydrogenase Troponin T C-Reactive Protein Total Protein Albumin Prealbumin Triglycerides Cholesterol LDL Cholesterol Direct HDL Cholesterol 25-OH Vitamin D Total PTH Intact Urine pH Urine WBC (Auto) Urine Creatinine Urine Total Protein Fluid Total Protein Vancomycin Trough Rheumatoid Factor Complement C4 Miscellaneous Test Crossmatch 01/13/17 01/14/17 01/14/17 23:42 05:24 05:30 WBC RBC Hgb Hct MCV MCH MCHC RDW Plt Count Lymph % (Auto) [place] % (Auto) Lymph # [place] # Baso # Seg Neutrophils % Seg Neuts % (Manual) Lymphocytes % (Manual) Monocytes % (Manual) Eosinophils % (Manual) Basophils % (Manual) Nucleated RBC % Seg Neutrophils # Seg Neutrophils # Man Lymphocytes # (Manual) Monocytes # (Manual) Eosinophils # (Manual) Basophils # (Manual) PT INR Fibrinogen dRVVT Confirm Interp Factor V Activity POC ABG pH POC ABG pCO2 POC ABG pO2 ABG pO2 ABG HCO3 ABG Base Excess ABG Hemoglobin Oxyhemoglobin Sodium Potassium Chloride Carbon Dioxide BUN 58 H Creatinine Glucose 114 H POC Glucose 155 H 121 H Lactic Acid Calcium Ionized Calcium Phosphorus Magnesium Direct Bilirubin AST ALT Alkaline Phosphatase Lactate Dehydrogenase Troponin T C-Reactive Protein Total Protein Albumin Prealbumin Triglycerides Cholesterol LDL Cholesterol Direct HDL Cholesterol 25-OH Vitamin D Total PTH Intact Urine pH Urine WBC (Auto) Urine Creatinine Urine Total Protein Fluid Total Protein Vancomycin Trough Rheumatoid Factor Complement C4 Miscellaneous Test Crossmatch 01/14/17 01/14/17 01/15/17 12:48 17:36 00:15 WBC RBC Hgb Hct MCV MCH MCHC RDW Plt Count Lymph % (Auto) [place] % (Auto) Lymph # [place] # Baso # Seg Neutrophils % Seg Neuts % (Manual) Lymphocytes % (Manual) Monocytes % (Manual) Eosinophils % (Manual) Basophils % (Manual) Nucleated RBC % Seg Neutrophils # Seg Neutrophils # Man Lymphocytes # (Manual) Monocytes # (Manual) Eosinophils # (Manual) Basophils # (Manual) PT INR Fibrinogen dRVVT Confirm Interp Factor V Activity POC ABG pH POC ABG pCO2 POC ABG pO2 ABG pO2 ABG HCO3 ABG Base Excess ABG Hemoglobin Oxyhemoglobin Sodium Potassium Chloride Carbon Dioxide BUN Creatinine Glucose POC Glucose 130 H 135 H 132 H Lactic Acid Calcium Ionized Calcium Phosphorus Magnesium Direct Bilirubin AST ALT Alkaline Phosphatase Lactate Dehydrogenase Troponin T C-Reactive Protein Total Protein Albumin Prealbumin Triglycerides Cholesterol LDL Cholesterol Direct HDL Cholesterol 25-OH Vitamin D Total PTH Intact Urine pH Urine WBC (Auto) Urine Creatinine Urine Total Protein Fluid Total Protein Vancomycin Trough Rheumatoid Factor Complement C4 Miscellaneous Test Crossmatch 01/15/17 01/15/17 01/15/17 05:01 11:55 12:45 WBC 16.2 H RBC 3.00 L Hgb 8.1 L Hct 25.4 L MCV MCH 27 L MCHC RDW 17.6 H Plt Count Lymph % (Auto) 11.7 L [place] % (Auto) 7.8 H Lymph # [place] # 1.3 H Baso # Seg Neutrophils % 80.1 H Seg Neuts % (Manual) Lymphocytes % (Manual) Monocytes % (Manual) Eosinophils % (Manual) Basophils % (Manual) Nucleated RBC % Seg Neutrophils # 13.0 H Seg Neutrophils # Man Lymphocytes # (Manual) Monocytes # (Manual) Eosinophils # (Manual) Basophils # (Manual) PT INR Fibrinogen dRVVT Confirm Interp Factor V Activity POC ABG pH POC ABG pCO2 POC ABG pO2 ABG pO2 ABG HCO3 ABG Base Excess ABG Hemoglobin Oxyhemoglobin Sodium Potassium Chloride Carbon Dioxide BUN Creatinine Glucose POC Glucose 126 H 125 H Lactic Acid Calcium Ionized Calcium Phosphorus Magnesium Direct Bilirubin AST ALT Alkaline Phosphatase Lactate Dehydrogenase Troponin T C-Reactive Protein Total Protein Albumin Prealbumin Triglycerides Cholesterol LDL Cholesterol Direct HDL Cholesterol 25-OH Vitamin D Total PTH Intact Urine pH Urine WBC (Auto) Urine Creatinine Urine Total Protein Fluid Total Protein Vancomycin Trough Rheumatoid Factor Complement C4 Miscellaneous Test Crossmatch 01/15/17 01/15/17 01/15/17 12:45 17:31 23:39 WBC RBC Hgb Hct MCV MCH MCHC RDW Plt Count Lymph % (Auto) [place] % (Auto) Lymph # [place] # Baso # Seg Neutrophils % Seg Neuts % (Manual) Lymphocytes % (Manual) Monocytes % (Manual) Eosinophils % (Manual) Basophils % (Manual) Nucleated RBC % Seg Neutrophils # Seg Neutrophils # Man Lymphocytes # (Manual) Monocytes # (Manual) Eosinophils # (Manual) Basophils # (Manual) PT INR Fibrinogen dRVVT Confirm Interp Factor V Activity POC ABG pH POC ABG pCO2 POC ABG pO2 ABG pO2 ABG HCO3 ABG Base Excess ABG Hemoglobin Oxyhemoglobin Sodium 136 L Potassium Chloride Carbon Dioxide BUN 87 H Creatinine 1.7 H Glucose 108 H POC Glucose 129 H 112 H Lactic Acid Calcium Ionized Calcium Phosphorus Magnesium Direct Bilirubin AST ALT Alkaline Phosphatase Lactate Dehydrogenase Troponin T C-Reactive Protein Total Protein Albumin Prealbumin Triglycerides Cholesterol LDL Cholesterol Direct HDL Cholesterol 25-OH Vitamin D Total PTH Intact Urine pH Urine WBC (Auto) Urine Creatinine Urine Total Protein Fluid Total Protein Vancomycin Trough Rheumatoid Factor Complement C4 Miscellaneous Test Crossmatch 01/16/17 01/16/17 01/16/17 05:23 11:42 12:32 WBC RBC Hgb Hct MCV MCH MCHC RDW Plt Count Lymph % (Auto) [place] % (Auto) Lymph # [place] # Baso # Seg Neutrophils % Seg Neuts % (Manual) Lymphocytes % (Manual) Monocytes % (Manual) Eosinophils % (Manual) Basophils % (Manual) Nucleated RBC % Seg Neutrophils # Seg Neutrophils # Man Lymphocytes # (Manual) Monocytes # (Manual) Eosinophils # (Manual) Basophils # (Manual) PT INR Fibrinogen dRVVT Confirm Interp Factor V Activity POC ABG pH 7.499 H POC ABG pCO2 30.9 L POC ABG pO2 51 L ABG pO2 ABG HCO3 ABG Base Excess ABG Hemoglobin Oxyhemoglobin Sodium Potassium Chloride Carbon Dioxide BUN Creatinine Glucose POC Glucose 118 H 133 H Lactic Acid Calcium Ionized Calcium Phosphorus Magnesium Direct Bilirubin AST ALT Alkaline Phosphatase Lactate Dehydrogenase Troponin T C-Reactive Protein Total Protein Albumin Prealbumin Triglycerides Cholesterol LDL Cholesterol Direct HDL Cholesterol 25-OH Vitamin D Total PTH Intact Urine pH Urine WBC (Auto) Urine Creatinine Urine Total Protein Fluid Total Protein Vancomycin Trough Rheumatoid Factor Complement C4 Miscellaneous Test Crossmatch 01/16/17 01/16/17 01/16/17 17:52 23:57 Unknown WBC RBC Hgb Hct MCV MCH MCHC RDW Plt Count Lymph % (Auto) [place] % (Auto) Lymph # [place] # Baso # Seg Neutrophils % Seg Neuts % (Manual) Lymphocytes % (Manual) Monocytes % (Manual) Eosinophils % (Manual) Basophils % (Manual) Nucleated RBC % Seg Neutrophils # Seg Neutrophils # Man Lymphocytes # (Manual) Monocytes # (Manual) Eosinophils # (Manual) Basophils # (Manual) PT INR Fibrinogen dRVVT Confirm Interp Factor V Activity POC ABG pH POC ABG pCO2 POC ABG pO2 ABG pO2 ABG HCO3 ABG Base Excess ABG Hemoglobin Oxyhemoglobin Sodium 135 L Potassium Chloride Carbon Dioxide BUN 101 H Creatinine 1.8 H Glucose 117 H POC Glucose 130 H 143 H Lactic Acid Calcium Ionized Calcium Phosphorus 5.80 H Magnesium Direct Bilirubin AST ALT Alkaline Phosphatase Lactate Dehydrogenase Troponin T C-Reactive Protein Total Protein Albumin Prealbumin Triglycerides Cholesterol LDL Cholesterol Direct HDL Cholesterol 25-OH Vitamin D Total PTH Intact Urine pH Urine WBC (Auto) Urine Creatinine Urine Total Protein Fluid Total Protein Vancomycin Trough Rheumatoid Factor Complement C4 Miscellaneous Test Crossmatch 01/17/17 01/17/17 01/17/17 05:30 05:46 11:49 WBC RBC Hgb Hct MCV MCH MCHC RDW Plt Count Lymph % (Auto) [place] % (Auto) Lymph # [place] # Baso # Seg Neutrophils % Seg Neuts % (Manual) Lymphocytes % (Manual) Monocytes % (Manual) Eosinophils % (Manual) Basophils % (Manual) Nucleated RBC % Seg Neutrophils # Seg Neutrophils # Man Lymphocytes # (Manual) Monocytes # (Manual) Eosinophils # (Manual) Basophils # (Manual) PT INR Fibrinogen dRVVT Confirm Interp Factor V Activity POC ABG pH POC ABG pCO2 POC ABG pO2 ABG pO2 ABG HCO3 ABG Base Excess ABG Hemoglobin Oxyhemoglobin Sodium 134 L Potassium Chloride 95.8 L Carbon Dioxide BUN 66 H Creatinine 1.3 H Glucose 138 H POC Glucose 147 H 124 H Lactic Acid Calcium Ionized Calcium Phosphorus Magnesium Direct Bilirubin AST ALT Alkaline Phosphatase 254 H Lactate Dehydrogenase Troponin T C-Reactive Protein Total Protein Albumin 1.3 L Prealbumin Triglycerides Cholesterol LDL Cholesterol Direct HDL Cholesterol 25-OH Vitamin D Total PTH Intact Urine pH Urine WBC (Auto) Urine Creatinine Urine Total Protein Fluid Total Protein Vancomycin Trough Rheumatoid Factor Complement C4 Miscellaneous Test Crossmatch 01/17/17 01/17/17 01/18/17 17:30 23:41 05:15 WBC RBC Hgb Hct MCV MCH MCHC RDW Plt Count Lymph % (Auto) [place] % (Auto) Lymph # [place] # Baso # Seg Neutrophils % Seg Neuts % (Manual) Lymphocytes % (Manual) Monocytes % (Manual) Eosinophils % (Manual) Basophils % (Manual) Nucleated RBC % Seg Neutrophils # Seg Neutrophils # Man Lymphocytes # (Manual) Monocytes # (Manual) Eosinophils # (Manual) Basophils # (Manual) PT INR Fibrinogen dRVVT Confirm Interp Factor V Activity POC ABG pH POC ABG pCO2 POC ABG pO2 ABG pO2 ABG HCO3 ABG Base Excess ABG Hemoglobin Oxyhemoglobin Sodium Potassium Chloride Carbon Dioxide BUN 89 H Creatinine 1.7 H Glucose 118 H POC Glucose 137 H 119 H Lactic Acid Calcium Ionized Calcium Phosphorus Magnesium Direct Bilirubin AST ALT Alkaline Phosphatase Lactate Dehydrogenase Troponin T C-Reactive Protein Total Protein Albumin Prealbumin Triglycerides Cholesterol LDL Cholesterol Direct HDL Cholesterol 25-OH Vitamin D Total PTH Intact Urine pH Urine WBC (Auto) Urine Creatinine Urine Total Protein Fluid Total Protein Vancomycin Trough Rheumatoid Factor Complement C4 Miscellaneous Test Crossmatch 01/18/17 01/18/17 01/18/17 05:19 12:16 18:11 WBC RBC Hgb Hct MCV MCH MCHC RDW Plt Count Lymph % (Auto) [place] % (Auto) Lymph # [place] # Baso # Seg Neutrophils % Seg Neuts % (Manual) Lymphocytes % (Manual) Monocytes % (Manual) Eosinophils % (Manual) Basophils % (Manual) Nucleated RBC % Seg Neutrophils # Seg Neutrophils # Man Lymphocytes # (Manual) Monocytes # (Manual) Eosinophils # (Manual) Basophils # (Manual) PT INR Fibrinogen dRVVT Confirm Interp Factor V Activity POC ABG pH POC ABG pCO2 POC ABG pO2 ABG pO2 ABG HCO3 ABG Base Excess ABG Hemoglobin Oxyhemoglobin Sodium Potassium Chloride Carbon Dioxide BUN Creatinine Glucose POC Glucose 134 H 188 H 113 H Lactic Acid Calcium Ionized Calcium Phosphorus Magnesium Direct Bilirubin AST ALT Alkaline Phosphatase Lactate Dehydrogenase Troponin T C-Reactive Protein Total Protein Albumin Prealbumin Triglycerides Cholesterol LDL Cholesterol Direct HDL Cholesterol 25-OH Vitamin D Total PTH Intact Urine pH Urine WBC (Auto) Urine Creatinine Urine Total Protein Fluid Total Protein Vancomycin Trough Rheumatoid Factor Complement C4 Miscellaneous Test Crossmatch 01/19/17 01/19/17 01/19/17 00:00 05:30 05:36 WBC RBC Hgb Hct MCV MCH MCHC RDW Plt Count Lymph % (Auto) [place] % (Auto) Lymph # [place] # Baso # Seg Neutrophils % Seg Neuts % (Manual) Lymphocytes % (Manual) Monocytes % (Manual) Eosinophils % (Manual) Basophils % (Manual) Nucleated RBC % Seg Neutrophils # Seg Neutrophils # Man Lymphocytes # (Manual) Monocytes # (Manual) Eosinophils # (Manual) Basophils # (Manual) PT INR Fibrinogen dRVVT Confirm Interp Factor V Activity POC ABG pH POC ABG pCO2 POC ABG pO2 ABG pO2 ABG HCO3 ABG Base Excess ABG Hemoglobin Oxyhemoglobin Sodium Potassium Chloride Carbon Dioxide BUN 70 H Creatinine 1.5 H Glucose 121 H POC Glucose 137 H 155 H Lactic Acid Calcium Ionized Calcium Phosphorus 2.10 L D Magnesium Direct Bilirubin AST ALT Alkaline Phosphatase Lactate Dehydrogenase Troponin T C-Reactive Protein Total Protein Albumin Prealbumin Triglycerides Cholesterol LDL Cholesterol Direct HDL Cholesterol 25-OH Vitamin D Total PTH Intact Urine pH Urine WBC (Auto) Urine Creatinine Urine Total Protein Fluid Total Protein Vancomycin Trough Rheumatoid Factor Complement C4 Miscellaneous Test Crossmatch 01/19/17 01/19/17 01/19/17 11:59 15:32 17:57 WBC RBC Hgb Hct MCV MCH MCHC RDW Plt Count Lymph % (Auto) [place] % (Auto) Lymph # [place] # Baso # Seg Neutrophils % Seg Neuts % (Manual) Lymphocytes % (Manual) Monocytes % (Manual) Eosinophils % (Manual) Basophils % (Manual) Nucleated RBC % Seg Neutrophils # Seg Neutrophils # Man Lymphocytes # (Manual) Monocytes # (Manual) Eosinophils # (Manual) Basophils # (Manual) PT INR Fibrinogen dRVVT Confirm Interp Factor V Activity POC ABG pH POC ABG pCO2 33.1 L POC ABG pO2 76 L ABG pO2 ABG HCO3 ABG Base Excess ABG Hemoglobin Oxyhemoglobin Sodium Potassium Chloride Carbon Dioxide BUN Creatinine Glucose POC Glucose 156 H 129 H Lactic Acid Calcium Ionized Calcium Phosphorus Magnesium Direct Bilirubin AST ALT Alkaline Phosphatase Lactate Dehydrogenase Troponin T C-Reactive Protein Total Protein Albumin Prealbumin Triglycerides Cholesterol LDL Cholesterol Direct HDL Cholesterol 25-OH Vitamin D Total PTH Intact Urine pH Urine WBC (Auto) Urine Creatinine Urine Total Protein Fluid Total Protein Vancomycin Trough Rheumatoid Factor Complement C4 Miscellaneous Test Crossmatch 01/19/17 01/20/17 01/20/17 23:49 04:00 05:21 WBC RBC Hgb Hct MCV MCH MCHC RDW Plt Count Lymph % (Auto) [place] % (Auto) Lymph # [place] # Baso # Seg Neutrophils % Seg Neuts % (Manual) Lymphocytes % (Manual) Monocytes % (Manual) Eosinophils % (Manual) Basophils % (Manual) Nucleated RBC % Seg Neutrophils # Seg Neutrophils # Man Lymphocytes # (Manual) Monocytes # (Manual) Eosinophils # (Manual) Basophils # (Manual) PT INR Fibrinogen dRVVT Confirm Interp Factor V Activity POC ABG pH POC ABG pCO2 POC ABG pO2 ABG pO2 ABG HCO3 ABG Base Excess ABG Hemoglobin Oxyhemoglobin Sodium Potassium Chloride Carbon Dioxide BUN 96 H Creatinine 1.9 H Glucose 106 H POC Glucose 125 H 130 H Lactic Acid Calcium Ionized Calcium Phosphorus 2.40 L Magnesium Direct Bilirubin AST ALT Alkaline Phosphatase Lactate Dehydrogenase Troponin T C-Reactive Protein Total Protein Albumin Prealbumin Triglycerides Cholesterol LDL Cholesterol Direct HDL Cholesterol 25-OH Vitamin D Total PTH Intact Urine pH Urine WBC (Auto) Urine Creatinine Urine Total Protein Fluid Total Protein Vancomycin Trough Rheumatoid Factor Complement C4 Miscellaneous Test Crossmatch 01/20/17 01/20/17 01/20/17 11:58 12:17 17:26 WBC RBC Hgb Hct MCV MCH MCHC RDW Plt Count Lymph % (Auto) [place] % (Auto) Lymph # [place] # Baso # Seg Neutrophils % Seg Neuts % (Manual) Lymphocytes % (Manual) Monocytes % (Manual) Eosinophils % (Manual) Basophils % (Manual) Nucleated RBC % Seg Neutrophils # Seg Neutrophils # Man Lymphocytes # (Manual) Monocytes # (Manual) Eosinophils # (Manual) Basophils # (Manual) PT INR Fibrinogen dRVVT Confirm Interp Factor V Activity POC ABG pH POC ABG pCO2 POC ABG pO2 70 L ABG pO2 ABG HCO3 ABG Base Excess ABG Hemoglobin Oxyhemoglobin Sodium Potassium Chloride Carbon Dioxide BUN Creatinine Glucose POC Glucose 118 H 154 H Lactic Acid Calcium Ionized Calcium Phosphorus Magnesium Direct Bilirubin AST ALT Alkaline Phosphatase Lactate Dehydrogenase Troponin T C-Reactive Protein Total Protein Albumin Prealbumin Triglycerides Cholesterol LDL Cholesterol Direct HDL Cholesterol 25-OH Vitamin D Total PTH Intact Urine pH Urine WBC (Auto) Urine Creatinine Urine Total Protein Fluid Total Protein Vancomycin Trough Rheumatoid Factor Complement C4 Miscellaneous Test Crossmatch 01/21/17 01/21/17 01/21/17 04:00 04:56 11:46 WBC RBC Hgb Hct MCV MCH MCHC RDW Plt Count Lymph % (Auto) [place] % (Auto) Lymph # [place] # Baso # Seg Neutrophils % Seg Neuts % (Manual) Lymphocytes % (Manual) Monocytes % (Manual) Eosinophils % (Manual) Basophils % (Manual) Nucleated RBC % Seg Neutrophils # Seg Neutrophils # Man Lymphocytes # (Manual) Monocytes # (Manual) Eosinophils # (Manual) Basophils # (Manual) PT INR Fibrinogen dRVVT Confirm Interp Factor V Activity POC ABG pH POC ABG pCO2 POC ABG pO2 ABG pO2 ABG HCO3 ABG Base Excess ABG Hemoglobin Oxyhemoglobin Sodium Potassium 3.5 L Chloride 97.4 L Carbon Dioxide BUN 66 H Creatinine 1.4 H Glucose POC Glucose 116 H 106 H Lactic Acid Calcium Ionized Calcium Phosphorus 2.10 L Magnesium Direct Bilirubin AST ALT Alkaline Phosphatase Lactate Dehydrogenase Troponin T C-Reactive Protein Total Protein Albumin Prealbumin Triglycerides Cholesterol LDL Cholesterol Direct HDL Cholesterol 25-OH Vitamin D Total PTH Intact Urine pH Urine WBC (Auto) Urine Creatinine Urine Total Protein Fluid Total Protein Vancomycin Trough Rheumatoid Factor Complement C4 Miscellaneous Test Crossmatch 01/21/17 01/21/17 01/22/17 17:25 23:49 05:35 WBC RBC Hgb Hct MCV MCH MCHC RDW Plt Count Lymph % (Auto) [place] % (Auto) Lymph # [place] # Baso # Seg Neutrophils % Seg Neuts % (Manual) Lymphocytes % (Manual) Monocytes % (Manual) Eosinophils % (Manual) Basophils % (Manual) Nucleated RBC % Seg Neutrophils # Seg Neutrophils # Man Lymphocytes # (Manual) Monocytes # (Manual) Eosinophils # (Manual) Basophils # (Manual) PT INR Fibrinogen dRVVT Confirm Interp Factor V Activity POC ABG pH POC ABG pCO2 POC ABG pO2 ABG pO2 ABG HCO3 ABG Base Excess ABG Hemoglobin Oxyhemoglobin Sodium Potassium Chloride Carbon Dioxide BUN Creatinine Glucose POC Glucose 106 H 133 H 107 H Lactic Acid Calcium Ionized Calcium Phosphorus Magnesium Direct Bilirubin AST ALT Alkaline Phosphatase Lactate Dehydrogenase Troponin T C-Reactive Protein Total Protein Albumin Prealbumin Triglycerides Cholesterol LDL Cholesterol Direct HDL Cholesterol 25-OH Vitamin D Total PTH Intact Urine pH Urine WBC (Auto) Urine Creatinine Urine Total Protein Fluid Total Protein Vancomycin Trough Rheumatoid Factor Complement C4 Miscellaneous Test Crossmatch 01/22/17 01/22/17 01/22/17 07:20 07:20 11:31 WBC RBC 2.75 L Hgb 7.5 L Hct 22.7 L MCV MCH 27 L MCHC RDW 17.5 H Plt Count Lymph % (Auto) [place] % (Auto) Lymph # [place] # Baso # Seg Neutrophils % Seg Neuts % (Manual) Lymphocytes % (Manual) Monocytes % (Manual) Eosinophils % (Manual) Basophils % (Manual) Nucleated RBC % Seg Neutrophils # Seg Neutrophils # Man Lymphocytes # (Manual) Monocytes # (Manual) Eosinophils # (Manual) Basophils # (Manual) PT INR Fibrinogen dRVVT Confirm Interp Factor V Activity POC ABG pH POC ABG pCO2 POC ABG pO2 ABG pO2 ABG HCO3 ABG Base Excess ABG Hemoglobin Oxyhemoglobin Sodium Potassium 3.3 L Chloride Carbon Dioxide BUN 42 H Creatinine Glucose 105 H POC Glucose 124 H Lactic Acid Calcium Ionized Calcium Phosphorus 1.70 L Magnesium Direct Bilirubin AST ALT Alkaline Phosphatase Lactate Dehydrogenase Troponin T C-Reactive Protein Total Protein Albumin Prealbumin Triglycerides Cholesterol LDL Cholesterol Direct HDL Cholesterol 25-OH Vitamin D Total PTH Intact Urine pH Urine WBC (Auto) Urine Creatinine Urine Total Protein Fluid Total Protein Vancomycin Trough Rheumatoid Factor Complement C4 Miscellaneous Test Crossmatch 01/22/17 01/22/17 01/23/17 17:16 23:35 05:35 WBC RBC Hgb Hct MCV MCH MCHC RDW Plt Count Lymph % (Auto) [place] % (Auto) Lymph # [place] # Baso # Seg Neutrophils % Seg Neuts % (Manual) Lymphocytes % (Manual) Monocytes % (Manual) Eosinophils % (Manual) Basophils % (Manual) Nucleated RBC % Seg Neutrophils # Seg Neutrophils # Man Lymphocytes # (Manual) Monocytes # (Manual) Eosinophils # (Manual) Basophils # (Manual) PT INR Fibrinogen dRVVT Confirm Interp Factor V Activity POC ABG pH POC ABG pCO2 POC ABG pO2 ABG pO2 ABG HCO3 ABG Base Excess ABG Hemoglobin Oxyhemoglobin Sodium Potassium Chloride Carbon Dioxide BUN Creatinine Glucose POC Glucose 135 H 120 H 111 H Lactic Acid Calcium Ionized Calcium Phosphorus Magnesium Direct Bilirubin AST ALT Alkaline Phosphatase Lactate Dehydrogenase Troponin T C-Reactive Protein Total Protein Albumin Prealbumin Triglycerides Cholesterol LDL Cholesterol Direct HDL Cholesterol 25-OH Vitamin D Total PTH Intact Urine pH Urine WBC (Auto) Urine Creatinine Urine Total Protein Fluid Total Protein Vancomycin Trough Rheumatoid Factor Complement C4 Miscellaneous Test Crossmatch 01/23/17 01/23/17 01/23/17 06:10 17:27 23:44 WBC RBC Hgb Hct MCV MCH MCHC RDW Plt Count Lymph % (Auto) [place] % (Auto) Lymph # [place] # Baso # Seg Neutrophils % Seg Neuts % (Manual) Lymphocytes % (Manual) Monocytes % (Manual) Eosinophils % (Manual) Basophils % (Manual) Nucleated RBC % Seg Neutrophils # Seg Neutrophils # Man Lymphocytes # (Manual) Monocytes # (Manual) Eosinophils # (Manual) Basophils # (Manual) PT INR Fibrinogen dRVVT Confirm Interp Factor V Activity POC ABG pH POC ABG pCO2 POC ABG pO2 ABG pO2 ABG HCO3 ABG Base Excess ABG Hemoglobin Oxyhemoglobin Sodium Potassium 3.3 L Chloride Carbon Dioxide BUN 66 H Creatinine 1.3 H Glucose 109 H POC Glucose 120 H 115 H Lactic Acid Calcium Ionized Calcium Phosphorus 2.20 L D Magnesium Direct Bilirubin AST ALT Alkaline Phosphatase Lactate Dehydrogenase Troponin T C-Reactive Protein Total Protein Albumin Prealbumin Triglycerides Cholesterol LDL Cholesterol Direct HDL Cholesterol 25-OH Vitamin D Total PTH Intact Urine pH Urine WBC (Auto) Urine Creatinine Urine Total Protein Fluid Total Protein Vancomycin Trough Rheumatoid Factor Complement C4 Miscellaneous Test Crossmatch 01/24/17 01/24/17 01/24/17 05:19 05:50 12:19 WBC RBC Hgb Hct MCV MCH MCHC RDW Plt Count Lymph % (Auto) [place] % (Auto) Lymph # [place] # Baso # Seg Neutrophils % Seg Neuts % (Manual) Lymphocytes % (Manual) Monocytes % (Manual) Eosinophils % (Manual) Basophils % (Manual) Nucleated RBC % Seg Neutrophils # Seg Neutrophils # Man Lymphocytes # (Manual) Monocytes # (Manual) Eosinophils # (Manual) Basophils # (Manual) PT INR Fibrinogen dRVVT Confirm Interp Factor V Activity POC ABG pH POC ABG pCO2 POC ABG pO2 ABG pO2 ABG HCO3 ABG Base Excess ABG Hemoglobin Oxyhemoglobin Sodium Potassium Chloride Carbon Dioxide BUN 47 H Creatinine Glucose 117 H POC Glucose 126 H 119 H Lactic Acid Calcium Ionized Calcium Phosphorus 2.30 L Magnesium 1.60 L Direct Bilirubin AST ALT Alkaline Phosphatase Lactate Dehydrogenase Troponin T C-Reactive Protein Total Protein Albumin Prealbumin Triglycerides Cholesterol LDL Cholesterol Direct HDL Cholesterol 25-OH Vitamin D Total PTH Intact Urine pH Urine WBC (Auto) Urine Creatinine Urine Total Protein Fluid Total Protein Vancomycin Trough Rheumatoid Factor Complement C4 Miscellaneous Test Crossmatch 01/24/17 01/25/17 01/25/17 17:08 00:37 04:00 WBC RBC Hgb Hct MCV MCH MCHC RDW Plt Count Lymph % (Auto) [place] % (Auto) Lymph # [place] # Baso # Seg Neutrophils % Seg Neuts % (Manual) Lymphocytes % (Manual) Monocytes % (Manual) Eosinophils % (Manual) Basophils % (Manual) Nucleated RBC % Seg Neutrophils # Seg Neutrophils # Man Lymphocytes # (Manual) Monocytes # (Manual) Eosinophils # (Manual) Basophils # (Manual) PT INR Fibrinogen dRVVT Confirm Interp Factor V Activity POC ABG pH POC ABG pCO2 POC ABG pO2 ABG pO2 ABG HCO3 ABG Base Excess ABG Hemoglobin Oxyhemoglobin Sodium Potassium Chloride Carbon Dioxide BUN 72 H Creatinine 1.3 H Glucose POC Glucose 127 H 110 H Lactic Acid Calcium Ionized Calcium Phosphorus Magnesium Direct Bilirubin AST ALT Alkaline Phosphatase Lactate Dehydrogenase Troponin T C-Reactive Protein Total Protein Albumin Prealbumin Triglycerides Cholesterol LDL Cholesterol Direct HDL Cholesterol 25-OH Vitamin D Total PTH Intact Urine pH Urine WBC (Auto) Urine Creatinine Urine Total Protein Fluid Total Protein Vancomycin Trough Rheumatoid Factor Complement C4 Miscellaneous Test Crossmatch 01/25/17 01/25/17 01/25/17 04:00 11:15 13:05 WBC RBC 2.49 L Hgb 6.7 L Hct 20.9 L MCV MCH 27 L MCHC RDW 18.8 H Plt Count Lymph % (Auto) [place] % (Auto) 10.1 H Lymph # [place] # 1.0 H Baso # Seg Neutrophils % Seg Neuts % (Manual) Lymphocytes % (Manual) Monocytes % (Manual) Eosinophils % (Manual) Basophils % (Manual) Nucleated RBC % Seg Neutrophils # Seg Neutrophils # Man Lymphocytes # (Manual) Monocytes # (Manual) Eosinophils # (Manual) Basophils # (Manual) PT INR Fibrinogen dRVVT Confirm Interp Factor V Activity POC ABG pH POC ABG pCO2 POC ABG pO2 ABG pO2 ABG HCO3 ABG Base Excess ABG Hemoglobin Oxyhemoglobin Sodium Potassium Chloride Carbon Dioxide BUN Creatinine Glucose POC Glucose 128 H Lactic Acid Calcium Ionized Calcium Phosphorus Magnesium Direct Bilirubin AST ALT Alkaline Phosphatase Lactate Dehydrogenase Troponin T C-Reactive Protein Total Protein Albumin Prealbumin Triglycerides Cholesterol LDL Cholesterol Direct HDL Cholesterol 25-OH Vitamin D Total PTH Intact Urine pH Urine WBC (Auto) Urine Creatinine Urine Total Protein Fluid Total Protein Vancomycin Trough Rheumatoid Factor Complement C4 Miscellaneous Test Crossmatch See Detail 01/25/17 01/25/17 01/26/17 18:02 23:07 01:20 WBC RBC Hgb Hct MCV MCH MCHC RDW Plt Count Lymph % (Auto) [place] % (Auto) Lymph # [place] # Baso # Seg Neutrophils % Seg Neuts % (Manual) Lymphocytes % (Manual) Monocytes % (Manual) Eosinophils % (Manual) Basophils % (Manual) Nucleated RBC % Seg Neutrophils # Seg Neutrophils # Man Lymphocytes # (Manual) Monocytes # (Manual) Eosinophils # (Manual) Basophils # (Manual) PT INR Fibrinogen dRVVT Confirm Interp Factor V Activity POC ABG pH POC ABG pCO2 POC ABG pO2 ABG pO2 ABG HCO3 ABG Base Excess ABG Hemoglobin Oxyhemoglobin Sodium Potassium Chloride Carbon Dioxide BUN Creatinine Glucose POC Glucose 120 H 123 H 112 H Lactic Acid Calcium Ionized Calcium Phosphorus Magnesium Direct Bilirubin AST ALT Alkaline Phosphatase Lactate Dehydrogenase Troponin T C-Reactive Protein Total Protein Albumin Prealbumin Triglycerides Cholesterol LDL Cholesterol Direct HDL Cholesterol 25-OH Vitamin D Total PTH Intact Urine pH Urine WBC (Auto) Urine Creatinine Urine Total Protein Fluid Total Protein Vancomycin Trough Rheumatoid Factor Complement C4 Miscellaneous Test Crossmatch 01/26/17 01/26/17 01/26/17 04:20 04:20 11:23 WBC 13.1 H RBC 3.28 L Hgb 9.0 L Hct 26.9 L D MCV MCH 27 L MCHC RDW 17.2 H Plt Count Lymph % (Auto) [place] % (Auto) 9.0 H Lymph # [place] # 1.2 H Baso # Seg Neutrophils % 73.1 H Seg Neuts % (Manual) Lymphocytes % (Manual) Monocytes % (Manual) Eosinophils % (Manual) Basophils % (Manual) Nucleated RBC % Seg Neutrophils # 9.6 H Seg Neutrophils # Man Lymphocytes # (Manual) Monocytes # (Manual) Eosinophils # (Manual) Basophils # (Manual) PT INR Fibrinogen dRVVT Confirm Interp Factor V Activity POC ABG pH POC ABG pCO2 POC ABG pO2 ABG pO2 ABG HCO3 ABG Base Excess ABG Hemoglobin Oxyhemoglobin Sodium Potassium Chloride Carbon Dioxide BUN 51 H Creatinine Glucose 117 H POC Glucose 125 H Lactic Acid Calcium Ionized Calcium Phosphorus Magnesium Direct Bilirubin AST ALT Alkaline Phosphatase Lactate Dehydrogenase Troponin T C-Reactive Protein Total Protein Albumin Prealbumin Triglycerides Cholesterol LDL Cholesterol Direct HDL Cholesterol 25-OH Vitamin D Total PTH Intact Urine pH Urine WBC (Auto) Urine Creatinine Urine Total Protein Fluid Total Protein Vancomycin Trough Rheumatoid Factor Complement C4 Miscellaneous Test Crossmatch 01/26/17 01/27/17 01/27/17 17:11 00:30 04:00 WBC RBC Hgb Hct MCV MCH MCHC RDW Plt Count Lymph % (Auto) [place] % (Auto) Lymph # [place] # Baso # Seg Neutrophils % Seg Neuts % (Manual) Lymphocytes % (Manual) Monocytes % (Manual) Eosinophils % (Manual) Basophils % (Manual) Nucleated RBC % Seg Neutrophils # Seg Neutrophils # Man Lymphocytes # (Manual) Monocytes # (Manual) Eosinophils # (Manual) Basophils # (Manual) PT INR Fibrinogen dRVVT Confirm Interp Factor V Activity POC ABG pH POC ABG pCO2 POC ABG pO2 ABG pO2 ABG HCO3 ABG Base Excess ABG Hemoglobin Oxyhemoglobin Sodium Potassium Chloride 97.7 L Carbon Dioxide 21 L BUN 79 H Creatinine 1.7 H D Glucose 112 H POC Glucose 133 H 135 H Lactic Acid Calcium Ionized Calcium Phosphorus 5.00 H D Magnesium Direct Bilirubin AST ALT Alkaline Phosphatase Lactate Dehydrogenase Troponin T C-Reactive Protein Total Protein Albumin Prealbumin Triglycerides Cholesterol LDL Cholesterol Direct HDL Cholesterol 25-OH Vitamin D Total PTH Intact Urine pH Urine WBC (Auto) Urine Creatinine Urine Total Protein Fluid Total Protein Vancomycin Trough Rheumatoid Factor Complement C4 Miscellaneous Test Crossmatch 01/27/17 01/27/17 01/27/17 05:12 12:18 17:25 WBC RBC Hgb Hct MCV MCH MCHC RDW Plt Count Lymph % (Auto) [place] % (Auto) Lymph # [place] # Baso # Seg Neutrophils % Seg Neuts % (Manual) Lymphocytes % (Manual) Monocytes % (Manual) Eosinophils % (Manual) Basophils % (Manual) Nucleated RBC % Seg Neutrophils # Seg Neutrophils # Man Lymphocytes # (Manual) Monocytes # (Manual) Eosinophils # (Manual) Basophils # (Manual) PT INR Fibrinogen dRVVT Confirm Interp Factor V Activity POC ABG pH POC ABG pCO2 POC ABG pO2 ABG pO2 ABG HCO3 ABG Base Excess ABG Hemoglobin Oxyhemoglobin Sodium Potassium Chloride Carbon Dioxide BUN Creatinine Glucose POC Glucose 116 H 153 H 152 H Lactic Acid Calcium Ionized Calcium Phosphorus Magnesium Direct Bilirubin AST ALT Alkaline Phosphatase Lactate Dehydrogenase Troponin T C-Reactive Protein Total Protein Albumin Prealbumin Triglycerides Cholesterol LDL Cholesterol Direct HDL Cholesterol 25-OH Vitamin D Total PTH Intact Urine pH Urine WBC (Auto) Urine Creatinine Urine Total Protein Fluid Total Protein Vancomycin Trough Rheumatoid Factor Complement C4 Miscellaneous Test Crossmatch 01/27/17 01/28/17 01/28/17 23:42 04:00 04:00 WBC 14.4 H RBC 2.82 L Hgb 7.4 L Hct 23.5 L MCV MCH 26 L MCHC RDW 17.6 H Plt Count Lymph % (Auto) 10.2 L [place] % (Auto) 11.0 H Lymph # [place] # 1.6 H Baso # Seg Neutrophils % 78.0 H Seg Neuts % (Manual) Lymphocytes % (Manual) Monocytes % (Manual) Eosinophils % (Manual) Basophils % (Manual) Nucleated RBC % Seg Neutrophils # 11.3 H Seg Neutrophils # Man Lymphocytes # (Manual) Monocytes # (Manual) Eosinophils # (Manual) Basophils # (Manual) PT INR Fibrinogen dRVVT Confirm Interp Factor V Activity POC ABG pH POC ABG pCO2 POC ABG pO2 ABG pO2 ABG HCO3 ABG Base Excess ABG Hemoglobin Oxyhemoglobin Sodium Potassium Chloride Carbon Dioxide BUN 55 H Creatinine 1.3 H Glucose 114 H POC Glucose 121 H Lactic Acid Calcium Ionized Calcium Phosphorus Magnesium Direct Bilirubin AST ALT Alkaline Phosphatase Lactate Dehydrogenase Troponin T C-Reactive Protein Total Protein Albumin 1.4 L Prealbumin Triglycerides Cholesterol LDL Cholesterol Direct HDL Cholesterol 25-OH Vitamin D Total PTH Intact Urine pH Urine WBC (Auto) Urine Creatinine Urine Total Protein Fluid Total Protein Vancomycin Trough Rheumatoid Factor Complement C4 Miscellaneous Test Crossmatch 01/28/17 01/28/17 01/29/17 04:59 12:30 00:02 WBC RBC Hgb Hct MCV MCH MCHC RDW Plt Count Lymph % (Auto) [place] % (Auto) Lymph # [place] # Baso # Seg Neutrophils % Seg Neuts % (Manual) Lymphocytes % (Manual) Monocytes % (Manual) Eosinophils % (Manual) Basophils % (Manual) Nucleated RBC % Seg Neutrophils # Seg Neutrophils # Man Lymphocytes # (Manual) Monocytes # (Manual) Eosinophils # (Manual) Basophils # (Manual) PT INR Fibrinogen dRVVT Confirm Interp Factor V Activity POC ABG pH POC ABG pCO2 POC ABG pO2 ABG pO2 ABG HCO3 ABG Base Excess ABG Hemoglobin Oxyhemoglobin Sodium Potassium Chloride Carbon Dioxide BUN Creatinine Glucose POC Glucose 126 H 119 H 138 H Lactic Acid Calcium Ionized Calcium Phosphorus Magnesium Direct Bilirubin AST ALT Alkaline Phosphatase Lactate Dehydrogenase Troponin T C-Reactive Protein Total Protein Albumin Prealbumin Triglycerides Cholesterol LDL Cholesterol Direct HDL Cholesterol 25-OH Vitamin D Total PTH Intact Urine pH Urine WBC (Auto) Urine Creatinine Urine Total Protein Fluid Total Protein Vancomycin Trough Rheumatoid Factor Complement C4 Miscellaneous Test Crossmatch 01/29/17 01/29/17 01/29/17 04:58 06:15 11:35 WBC RBC Hgb Hct MCV MCH MCHC RDW Plt Count Lymph % (Auto) [place] % (Auto) Lymph # [place] # Baso # Seg Neutrophils % Seg Neuts % (Manual) Lymphocytes % (Manual) Monocytes % (Manual) Eosinophils % (Manual) Basophils % (Manual) Nucleated RBC % Seg Neutrophils # Seg Neutrophils # Man Lymphocytes # (Manual) Monocytes # (Manual) Eosinophils # (Manual) Basophils # (Manual) PT INR Fibrinogen dRVVT Confirm Interp Factor V Activity POC ABG pH POC ABG pCO2 POC ABG pO2 ABG pO2 ABG HCO3 ABG Base Excess ABG Hemoglobin Oxyhemoglobin Sodium Potassium Chloride Carbon Dioxide BUN 85 H Creatinine 1.7 H Glucose 105 H POC Glucose 114 H 110 H Lactic Acid Calcium Ionized Calcium Phosphorus Magnesium 2.40 H Direct Bilirubin AST ALT Alkaline Phosphatase Lactate Dehydrogenase Troponin T C-Reactive Protein Total Protein Albumin Prealbumin Triglycerides Cholesterol LDL Cholesterol Direct HDL Cholesterol 25-OH Vitamin D Total PTH Intact Urine pH Urine WBC (Auto) Urine Creatinine Urine Total Protein Fluid Total Protein Vancomycin Trough Rheumatoid Factor Complement C4 Miscellaneous Test Crossmatch 01/29/17 01/29/17 01/30/17 18:24 23:41 05:12 WBC RBC Hgb Hct MCV MCH MCHC RDW Plt Count Lymph % (Auto) [place] % (Auto) Lymph # [place] # Baso # Seg Neutrophils % Seg Neuts % (Manual) Lymphocytes % (Manual) Monocytes % (Manual) Eosinophils % (Manual) Basophils % (Manual) Nucleated RBC % Seg Neutrophils # Seg Neutrophils # Man Lymphocytes # (Manual) Monocytes # (Manual) Eosinophils # (Manual) Basophils # (Manual) PT INR Fibrinogen dRVVT Confirm Interp Factor V Activity POC ABG pH POC ABG pCO2 POC ABG pO2 ABG pO2 ABG HCO3 ABG Base Excess ABG Hemoglobin Oxyhemoglobin Sodium Potassium Chloride Carbon Dioxide BUN Creatinine Glucose POC Glucose 109 H 134 H 109 H Lactic Acid Calcium Ionized Calcium Phosphorus Magnesium Direct Bilirubin AST ALT Alkaline Phosphatase Lactate Dehydrogenase Troponin T C-Reactive Protein Total Protein Albumin Prealbumin Triglycerides Cholesterol LDL Cholesterol Direct HDL Cholesterol 25-OH Vitamin D Total PTH Intact Urine pH Urine WBC (Auto) Urine Creatinine Urine Total Protein Fluid Total Protein Vancomycin Trough Rheumatoid Factor Complement C4 Miscellaneous Test Crossmatch 01/30/17 01/30/17 01/30/17 11:26 17:43 23:39 WBC RBC Hgb Hct MCV MCH MCHC RDW Plt Count Lymph % (Auto) [place] % (Auto) Lymph # [place] # Baso # Seg Neutrophils % Seg Neuts % (Manual) Lymphocytes % (Manual) Monocytes % (Manual) Eosinophils % (Manual) Basophils % (Manual) Nucleated RBC % Seg Neutrophils # Seg Neutrophils # Man Lymphocytes # (Manual) Monocytes # (Manual) Eosinophils # (Manual) Basophils # (Manual) PT INR Fibrinogen dRVVT Confirm Interp Factor V Activity POC ABG pH POC ABG pCO2 POC ABG pO2 ABG pO2 ABG HCO3 ABG Base Excess ABG Hemoglobin Oxyhemoglobin Sodium Potassium Chloride Carbon Dioxide BUN Creatinine Glucose POC Glucose 135 H 143 H 122 H Lactic Acid Calcium Ionized Calcium Phosphorus Magnesium Direct Bilirubin AST ALT Alkaline Phosphatase Lactate Dehydrogenase Troponin T C-Reactive Protein Total Protein Albumin Prealbumin Triglycerides Cholesterol LDL Cholesterol Direct HDL Cholesterol 25-OH Vitamin D Total PTH Intact Urine pH Urine WBC (Auto) Urine Creatinine Urine Total Protein Fluid Total Protein Vancomycin Trough Rheumatoid Factor Complement C4 Miscellaneous Test Crossmatch 01/31/17 01/31/17 01/31/17 04:00 05:40 11:12 WBC RBC Hgb Hct MCV MCH MCHC RDW Plt Count Lymph % (Auto) [place] % (Auto) Lymph # [place] # Baso # Seg Neutrophils % Seg Neuts % (Manual) Lymphocytes % (Manual) Monocytes % (Manual) Eosinophils % (Manual) Basophils % (Manual) Nucleated RBC % Seg Neutrophils # Seg Neutrophils # Man Lymphocytes # (Manual) Monocytes # (Manual) Eosinophils # (Manual) Basophils # (Manual) PT INR Fibrinogen dRVVT Confirm Interp Factor V Activity POC ABG pH POC ABG pCO2 POC ABG pO2 ABG pO2 ABG HCO3 ABG Base Excess ABG Hemoglobin Oxyhemoglobin Sodium Potassium Chloride Carbon Dioxide BUN 78 H Creatinine 1.5 H Glucose 108 H POC Glucose 123 H Lactic Acid Calcium Ionized Calcium Phosphorus Magnesium Direct Bilirubin AST ALT Alkaline Phosphatase Lactate Dehydrogenase Troponin T C-Reactive Protein 8.10 H Total Protein Albumin Prealbumin Triglycerides Cholesterol LDL Cholesterol Direct HDL Cholesterol 25-OH Vitamin D Total PTH Intact Urine pH Urine WBC (Auto) Urine Creatinine Urine Total Protein Fluid Total Protein Vancomycin Trough Rheumatoid Factor Complement C4 Miscellaneous Test Crossmatch 01/31/17 01/31/17 01/31/17 11:16 17:45 17:50 WBC RBC Hgb Hct MCV MCH MCHC RDW Plt Count Lymph % (Auto) [place] % (Auto) Lymph # [place] # Baso # Seg Neutrophils % Seg Neuts % (Manual) Lymphocytes % (Manual) Monocytes % (Manual) Eosinophils % (Manual) Basophils % (Manual) Nucleated RBC % Seg Neutrophils # Seg Neutrophils # Man Lymphocytes # (Manual) Monocytes # (Manual) Eosinophils # (Manual) Basophils # (Manual) PT INR Fibrinogen dRVVT Confirm Interp Factor V Activity POC ABG pH POC ABG pCO2 POC ABG pO2 ABG pO2 ABG HCO3 ABG Base Excess ABG Hemoglobin Oxyhemoglobin Sodium Potassium Chloride Carbon Dioxide BUN Creatinine Glucose POC Glucose 119 H 111 H Lactic Acid Calcium Ionized Calcium Phosphorus Magnesium Direct Bilirubin AST ALT Alkaline Phosphatase Lactate Dehydrogenase Troponin T C-Reactive Protein Total Protein Albumin Prealbumin Triglycerides Cholesterol LDL Cholesterol Direct HDL Cholesterol 25-OH Vitamin D Total PTH Intact 6.76 L Urine pH Urine WBC (Auto) Urine Creatinine Urine Total Protein Fluid Total Protein Vancomycin Trough Rheumatoid Factor Complement C4 Miscellaneous Test Crossmatch 01/31/17 02/01/17 02/01/17 23:19 05:42 09:24 WBC RBC Hgb Hct MCV MCH MCHC RDW Plt Count Lymph % (Auto) [place] % (Auto) Lymph # [place] # Baso # Seg Neutrophils % Seg Neuts % (Manual) Lymphocytes % (Manual) Monocytes % (Manual) Eosinophils % (Manual) Basophils % (Manual) Nucleated RBC % Seg Neutrophils # Seg Neutrophils # Man Lymphocytes # (Manual) Monocytes # (Manual) Eosinophils # (Manual) Basophils # (Manual) PT INR Fibrinogen dRVVT Confirm Interp Factor V Activity POC ABG pH POC ABG pCO2 POC ABG pO2 ABG pO2 ABG HCO3 ABG Base Excess ABG Hemoglobin Oxyhemoglobin Sodium Potassium Chloride Carbon Dioxide BUN Creatinine Glucose POC Glucose 118 H 122 H Lactic Acid Calcium Ionized Calcium Phosphorus Magnesium 2.60 H Direct Bilirubin AST ALT Alkaline Phosphatase Lactate Dehydrogenase Troponin T C-Reactive Protein Total Protein Albumin Prealbumin Triglycerides Cholesterol LDL Cholesterol Direct HDL Cholesterol 25-OH Vitamin D Total PTH Intact Urine pH Urine WBC (Auto) Urine Creatinine Urine Total Protein Fluid Total Protein Vancomycin Trough Rheumatoid Factor Complement C4 Miscellaneous Test Crossmatch 02/01/17 02/01/17 02/02/17 09:24 12:15 07:40 WBC RBC Hgb Hct MCV MCH MCHC RDW Plt Count Lymph % (Auto) [place] % (Auto) Lymph # [place] # Baso # Seg Neutrophils % Seg Neuts % (Manual) Lymphocytes % (Manual) Monocytes % (Manual) Eosinophils % (Manual) Basophils % (Manual) Nucleated RBC % Seg Neutrophils # Seg Neutrophils # Man Lymphocytes # (Manual) Monocytes # (Manual) Eosinophils # (Manual) Basophils # (Manual) PT INR Fibrinogen dRVVT Confirm Interp Factor V Activity POC ABG pH POC ABG pCO2 POC ABG pO2 ABG pO2 ABG HCO3 ABG Base Excess ABG Hemoglobin Oxyhemoglobin Sodium Potassium Chloride Carbon Dioxide BUN 102 H 72 H Creatinine 1.9 H 1.5 H Glucose 120 H POC Glucose 156 H Lactic Acid Calcium Ionized Calcium Phosphorus Magnesium Direct Bilirubin AST ALT Alkaline Phosphatase Lactate Dehydrogenase Troponin T C-Reactive Protein Total Protein Albumin Prealbumin Triglycerides Cholesterol LDL Cholesterol Direct HDL Cholesterol 25-OH Vitamin D Total PTH Intact Urine pH Urine WBC (Auto) Urine Creatinine Urine Total Protein Fluid Total Protein Vancomycin Trough Rheumatoid Factor Complement C4 Miscellaneous Test Crossmatch 02/02/17 02/02/17 02/03/17 10:16 12:11 00:08 WBC 12.0 H RBC 3.08 L Hgb 8.3 L Hct 25.6 L MCV MCH 27 L MCHC RDW 18.2 H Plt Count Lymph % (Auto) [place] % (Auto) Lymph # [place] # Baso # Seg Neutrophils % 78.4 H Seg Neuts % (Manual) Lymphocytes % (Manual) Monocytes % (Manual) Eosinophils % (Manual) Basophils % (Manual) Nucleated RBC % Seg Neutrophils # 9.4 H Seg Neutrophils # Man Lymphocytes # (Manual) Monocytes # (Manual) Eosinophils # (Manual) Basophils # (Manual) PT INR Fibrinogen dRVVT Confirm Interp Factor V Activity POC ABG pH POC ABG pCO2 POC ABG pO2 ABG pO2 ABG HCO3 ABG Base Excess ABG Hemoglobin Oxyhemoglobin Sodium Potassium Chloride Carbon Dioxide BUN Creatinine Glucose POC Glucose 110 H 120 H Lactic Acid Calcium Ionized Calcium Phosphorus Magnesium Direct Bilirubin AST ALT Alkaline Phosphatase Lactate Dehydrogenase Troponin T C-Reactive Protein Total Protein Albumin Prealbumin Triglycerides Cholesterol LDL Cholesterol Direct HDL Cholesterol 25-OH Vitamin D Total PTH Intact Urine pH Urine WBC (Auto) Urine Creatinine Urine Total Protein Fluid Total Protein Vancomycin Trough Rheumatoid Factor Complement C4 Miscellaneous Test Crossmatch 02/03/17 02/03/17 02/03/17 05:41 07:38 11:31 WBC RBC Hgb Hct MCV MCH MCHC RDW Plt Count Lymph % (Auto) [place] % (Auto) Lymph # [place] # Baso # Seg Neutrophils % Seg Neuts % (Manual) Lymphocytes % (Manual) Monocytes % (Manual) Eosinophils % (Manual) Basophils % (Manual) Nucleated RBC % Seg Neutrophils # Seg Neutrophils # Man Lymphocytes # (Manual) Monocytes # (Manual) Eosinophils # (Manual) Basophils # (Manual) PT INR Fibrinogen dRVVT Confirm Interp Factor V Activity POC ABG pH POC ABG pCO2 POC ABG pO2 ABG pO2 ABG HCO3 ABG Base Excess ABG Hemoglobin Oxyhemoglobin Sodium 134 L Potassium Chloride Carbon Dioxide 21 L BUN 91 H Creatinine 1.9 H Glucose 110 H POC Glucose 119 H 119 H Lactic Acid Calcium 10.3 H Ionized Calcium Phosphorus Magnesium Direct Bilirubin AST ALT Alkaline Phosphatase Lactate Dehydrogenase Troponin T C-Reactive Protein Total Protein Albumin Prealbumin Triglycerides Cholesterol LDL Cholesterol Direct HDL Cholesterol 25-OH Vitamin D Total PTH Intact Urine pH Urine WBC (Auto) Urine Creatinine Urine Total Protein Fluid Total Protein Vancomycin Trough Rheumatoid Factor Complement C4 Miscellaneous Test Crossmatch 02/03/17 02/04/17 02/04/17 17:13 04:00 05:18 WBC RBC Hgb Hct MCV MCH MCHC RDW Plt Count Lymph % (Auto) [place] % (Auto) Lymph # [place] # Baso # Seg Neutrophils % Seg Neuts % (Manual) Lymphocytes % (Manual) Monocytes % (Manual) Eosinophils % (Manual) Basophils % (Manual) Nucleated RBC % Seg Neutrophils # Seg Neutrophils # Man Lymphocytes # (Manual) Monocytes # (Manual) Eosinophils # (Manual) Basophils # (Manual) PT INR Fibrinogen dRVVT Confirm Interp Factor V Activity POC ABG pH POC ABG pCO2 POC ABG pO2 ABG pO2 ABG HCO3 ABG Base Excess ABG Hemoglobin Oxyhemoglobin Sodium 136 L Potassium Chloride Carbon Dioxide BUN 58 H Creatinine 1.3 H Glucose 103 H POC Glucose 133 H 132 H Lactic Acid Calcium Ionized Calcium Phosphorus 2.00 L D Magnesium 1.60 L Direct Bilirubin AST ALT Alkaline Phosphatase Lactate Dehydrogenase Troponin T C-Reactive Protein Total Protein Albumin Prealbumin Triglycerides Cholesterol LDL Cholesterol Direct HDL Cholesterol 25-OH Vitamin D Total PTH Intact Urine pH Urine WBC (Auto) Urine Creatinine Urine Total Protein Fluid Total Protein Vancomycin Trough Rheumatoid Factor Complement C4 Miscellaneous Test Crossmatch 02/05/17 02/05/17 02/05/17 00:01 04:00 06:42 WBC RBC Hgb Hct MCV MCH MCHC RDW Plt Count Lymph % (Auto) [place] % (Auto) Lymph # [place] # Baso # Seg Neutrophils % Seg Neuts % (Manual) Lymphocytes % (Manual) Monocytes % (Manual) Eosinophils % (Manual) Basophils % (Manual) Nucleated RBC % Seg Neutrophils # Seg Neutrophils # Man Lymphocytes # (Manual) Monocytes # (Manual) Eosinophils # (Manual) Basophils # (Manual) PT INR Fibrinogen dRVVT Confirm Interp Factor V Activity POC ABG pH POC ABG pCO2 POC ABG pO2 ABG pO2 ABG HCO3 ABG Base Excess ABG Hemoglobin Oxyhemoglobin Sodium Potassium Chloride Carbon Dioxide BUN 83 H Creatinine 1.8 H Glucose POC Glucose 119 H 110 H Lactic Acid Calcium 10.7 H Ionized Calcium Phosphorus Magnesium Direct Bilirubin AST ALT Alkaline Phosphatase Lactate Dehydrogenase Troponin T C-Reactive Protein Total Protein Albumin Prealbumin Triglycerides Cholesterol LDL Cholesterol Direct HDL Cholesterol 25-OH Vitamin D Total PTH Intact Urine pH Urine WBC (Auto) Urine Creatinine Urine Total Protein Fluid Total Protein Vancomycin Trough Rheumatoid Factor Complement C4 Miscellaneous Test Crossmatch 02/05/17 02/05/17 02/05/17 09:59 11:47 23:44 WBC RBC 2.69 L Hgb 7.2 L Hct 22.5 L MCV MCH 27 L MCHC RDW 18.6 H Plt Count Lymph % (Auto) [place] % (Auto) 9.2 H Lymph # [place] # 0.9 H Baso # Seg Neutrophils % Seg Neuts % (Manual) Lymphocytes % (Manual) Monocytes % (Manual) Eosinophils % (Manual) Basophils % (Manual) Nucleated RBC % Seg Neutrophils # Seg Neutrophils # Man Lymphocytes # (Manual) Monocytes # (Manual) Eosinophils # (Manual) Basophils # (Manual) PT INR Fibrinogen dRVVT Confirm Interp Factor V Activity POC ABG pH POC ABG pCO2 POC ABG pO2 ABG pO2 ABG HCO3 ABG Base Excess ABG Hemoglobin Oxyhemoglobin Sodium Potassium Chloride Carbon Dioxide BUN Creatinine Glucose POC Glucose 130 H 123 H Lactic Acid Calcium Ionized Calcium Phosphorus Magnesium Direct Bilirubin AST ALT Alkaline Phosphatase Lactate Dehydrogenase Troponin T C-Reactive Protein Total Protein Albumin Prealbumin Triglycerides Cholesterol LDL Cholesterol Direct HDL Cholesterol 25-OH Vitamin D Total PTH Intact Urine pH Urine WBC (Auto) Urine Creatinine Urine Total Protein Fluid Total Protein Vancomycin Trough Rheumatoid Factor Complement C4 Miscellaneous Test Crossmatch 02/06/17 02/06/17 02/06/17 04:45 05:58 12:01 WBC RBC Hgb Hct MCV MCH MCHC RDW Plt Count Lymph % (Auto) [place] % (Auto) Lymph # [place] # Baso # Seg Neutrophils % Seg Neuts % (Manual) Lymphocytes % (Manual) Monocytes % (Manual) Eosinophils % (Manual) Basophils % (Manual) Nucleated RBC % Seg Neutrophils # Seg Neutrophils # Man Lymphocytes # (Manual) Monocytes # (Manual) Eosinophils # (Manual) Basophils # (Manual) PT INR Fibrinogen dRVVT Confirm Interp Factor V Activity POC ABG pH POC ABG pCO2 POC ABG pO2 ABG pO2 ABG HCO3 ABG Base Excess ABG Hemoglobin Oxyhemoglobin Sodium Potassium Chloride Carbon Dioxide BUN 101 H Creatinine 2.0 H Glucose 102 H POC Glucose 115 H 132 H Lactic Acid Calcium 10.6 H Ionized Calcium Phosphorus Magnesium Direct Bilirubin AST ALT Alkaline Phosphatase 199 H Lactate Dehydrogenase Troponin T C-Reactive Protein Total Protein Albumin 1.4 L Prealbumin Triglycerides Cholesterol LDL Cholesterol Direct HDL Cholesterol 25-OH Vitamin D Total PTH Intact Urine pH Urine WBC (Auto) Urine Creatinine Urine Total Protein Fluid Total Protein Vancomycin Trough Rheumatoid Factor Complement C4 Miscellaneous Test Crossmatch 02/06/17 02/06/17 02/07/17 17:41 23:32 05:04 WBC RBC Hgb Hct MCV MCH MCHC RDW Plt Count Lymph % (Auto) [place] % (Auto) Lymph # [place] # Baso # Seg Neutrophils % Seg Neuts % (Manual) Lymphocytes % (Manual) Monocytes % (Manual) Eosinophils % (Manual) Basophils % (Manual) Nucleated RBC % Seg Neutrophils # Seg Neutrophils # Man Lymphocytes # (Manual) Monocytes # (Manual) Eosinophils # (Manual) Basophils # (Manual) PT INR Fibrinogen dRVVT Confirm Interp Factor V Activity POC ABG pH POC ABG pCO2 POC ABG pO2 ABG pO2 ABG HCO3 ABG Base Excess ABG Hemoglobin Oxyhemoglobin Sodium Potassium Chloride Carbon Dioxide BUN Creatinine Glucose POC Glucose 134 H 128 H 119 H Lactic Acid Calcium Ionized Calcium Phosphorus Magnesium Direct Bilirubin AST ALT Alkaline Phosphatase Lactate Dehydrogenase Troponin T C-Reactive Protein Total Protein Albumin Prealbumin Triglycerides Cholesterol LDL Cholesterol Direct HDL Cholesterol 25-OH Vitamin D Total PTH Intact Urine pH Urine WBC (Auto) Urine Creatinine Urine Total Protein Fluid Total Protein Vancomycin Trough Rheumatoid Factor Complement C4 Miscellaneous Test Crossmatch 02/07/17 02/07/17 02/07/17 06:30 11:20 17:13 WBC RBC Hgb Hct MCV MCH MCHC RDW Plt Count Lymph % (Auto) [place] % (Auto) Lymph # [place] # Baso # Seg Neutrophils % Seg Neuts % (Manual) Lymphocytes % (Manual) Monocytes % (Manual) Eosinophils % (Manual) Basophils % (Manual) Nucleated RBC % Seg Neutrophils # Seg Neutrophils # Man Lymphocytes # (Manual) Monocytes # (Manual) Eosinophils # (Manual) Basophils # (Manual) PT INR Fibrinogen dRVVT Confirm Interp Factor V Activity POC ABG pH POC ABG pCO2 POC ABG pO2 ABG pO2 ABG HCO3 ABG Base Excess ABG Hemoglobin Oxyhemoglobin Sodium Potassium 3.4 L Chloride Carbon Dioxide BUN 69 H Creatinine 1.5 H Glucose 105 H POC Glucose 117 H 110 H Lactic Acid Calcium Ionized Calcium Phosphorus Magnesium 1.50 L Direct Bilirubin AST ALT Alkaline Phosphatase Lactate Dehydrogenase Troponin T C-Reactive Protein Total Protein Albumin Prealbumin Triglycerides Cholesterol LDL Cholesterol Direct HDL Cholesterol 25-OH Vitamin D Total PTH Intact Urine pH Urine WBC (Auto) Urine Creatinine Urine Total Protein Fluid Total Protein Vancomycin Trough Rheumatoid Factor Complement C4 Miscellaneous Test Crossmatch 02/07/17 02/08/17 02/08/17 20:47 04:00 11:43 WBC RBC Hgb Hct MCV MCH MCHC RDW Plt Count Lymph % (Auto) [place] % (Auto) Lymph # [place] # Baso # Seg Neutrophils % Seg Neuts % (Manual) Lymphocytes % (Manual) Monocytes % (Manual) Eosinophils % (Manual) Basophils % (Manual) Nucleated RBC % Seg Neutrophils # Seg Neutrophils # Man Lymphocytes # (Manual) Monocytes # (Manual) Eosinophils # (Manual) Basophils # (Manual) PT INR Fibrinogen dRVVT Confirm Interp Factor V Activity POC ABG pH POC ABG pCO2 POC ABG pO2 ABG pO2 ABG HCO3 ABG Base Excess ABG Hemoglobin Oxyhemoglobin Sodium Potassium Chloride Carbon Dioxide BUN 86 H Creatinine 1.7 H Glucose POC Glucose 115 H 122 H Lactic Acid Calcium Ionized Calcium Phosphorus Magnesium 1.60 L Direct Bilirubin AST ALT Alkaline Phosphatase Lactate Dehydrogenase Troponin T C-Reactive Protein Total Protein Albumin Prealbumin Triglycerides Cholesterol LDL Cholesterol Direct HDL Cholesterol 25-OH Vitamin D Total PTH Intact Urine pH Urine WBC (Auto) Urine Creatinine Urine Total Protein Fluid Total Protein Vancomycin Trough Rheumatoid Factor Complement C4 Miscellaneous Test Crossmatch 02/08/17 02/09/17 02/09/17 17:36 05:44 11:30 WBC RBC Hgb Hct MCV MCH MCHC RDW Plt Count Lymph % (Auto) [place] % (Auto) Lymph # [place] # Baso # Seg Neutrophils % Seg Neuts % (Manual) Lymphocytes % (Manual) Monocytes % (Manual) Eosinophils % (Manual) Basophils % (Manual) Nucleated RBC % Seg Neutrophils # Seg Neutrophils # Man Lymphocytes # (Manual) Monocytes # (Manual) Eosinophils # (Manual) Basophils # (Manual) PT INR Fibrinogen dRVVT Confirm Interp Factor V Activity POC ABG pH POC ABG pCO2 POC ABG pO2 ABG pO2 ABG HCO3 ABG Base Excess ABG Hemoglobin Oxyhemoglobin Sodium Potassium Chloride Carbon Dioxide BUN Creatinine Glucose POC Glucose 125 H 117 H 120 H Lactic Acid Calcium Ionized Calcium Phosphorus Magnesium Direct Bilirubin AST ALT Alkaline Phosphatase Lactate Dehydrogenase Troponin T C-Reactive Protein Total Protein Albumin Prealbumin Triglycerides Cholesterol LDL Cholesterol Direct HDL Cholesterol 25-OH Vitamin D Total PTH Intact Urine pH Urine WBC (Auto) Urine Creatinine Urine Total Protein Fluid Total Protein Vancomycin Trough Rheumatoid Factor Complement C4 Miscellaneous Test Crossmatch 02/09/17 02/10/17 02/10/17 23:45 05:45 05:50 WBC RBC Hgb Hct MCV MCH MCHC RDW Plt Count Lymph % (Auto) [place] % (Auto) Lymph # [place] # Baso # Seg Neutrophils % Seg Neuts % (Manual) Lymphocytes % (Manual) Monocytes % (Manual) Eosinophils % (Manual) Basophils % (Manual) Nucleated RBC % Seg Neutrophils # Seg Neutrophils # Man Lymphocytes # (Manual) Monocytes # (Manual) Eosinophils # (Manual) Basophils # (Manual) PT INR Fibrinogen dRVVT Confirm Interp Factor V Activity POC ABG pH POC ABG pCO2 POC ABG pO2 ABG pO2 ABG HCO3 ABG Base Excess ABG Hemoglobin Oxyhemoglobin Sodium Potassium Chloride Carbon Dioxide BUN 85 H Creatinine 1.8 H Glucose 109 H POC Glucose 114 H 189 H Lactic Acid Calcium Ionized Calcium Phosphorus Magnesium 2.50 H Direct Bilirubin AST ALT Alkaline Phosphatase Lactate Dehydrogenase Troponin T C-Reactive Protein Total Protein Albumin Prealbumin Triglycerides Cholesterol LDL Cholesterol Direct HDL Cholesterol 25-OH Vitamin D Total PTH Intact Urine pH Urine WBC (Auto) Urine Creatinine Urine Total Protein Fluid Total Protein Vancomycin Trough Rheumatoid Factor Complement C4 Miscellaneous Test Crossmatch 02/10/17 02/10/17 02/10/17 05:51 11:55 17:42 WBC RBC Hgb Hct MCV MCH MCHC RDW Plt Count Lymph % (Auto) [place] % (Auto) Lymph # [place] # Baso # Seg Neutrophils % Seg Neuts % (Manual) Lymphocytes % (Manual) Monocytes % (Manual) Eosinophils % (Manual) Basophils % (Manual) Nucleated RBC % Seg Neutrophils # Seg Neutrophils # Man Lymphocytes # (Manual) Monocytes # (Manual) Eosinophils # (Manual) Basophils # (Manual) PT INR Fibrinogen dRVVT Confirm Interp Factor V Activity POC ABG pH POC ABG pCO2 POC ABG pO2 ABG pO2 ABG HCO3 ABG Base Excess ABG Hemoglobin Oxyhemoglobin Sodium Potassium Chloride Carbon Dioxide BUN Creatinine Glucose POC Glucose 106 H 146 H 132 H Lactic Acid Calcium Ionized Calcium Phosphorus Magnesium Direct Bilirubin AST ALT Alkaline Phosphatase Lactate Dehydrogenase Troponin T C-Reactive Protein Total Protein Albumin Prealbumin Triglycerides Cholesterol LDL Cholesterol Direct HDL Cholesterol 25-OH Vitamin D Total PTH Intact Urine pH Urine WBC (Auto) Urine Creatinine Urine Total Protein Fluid Total Protein Vancomycin Trough Rheumatoid Factor Complement C4 Miscellaneous Test Crossmatch 02/10/17 02/11/17 02/11/17 23:43 04:08 05:34 WBC RBC Hgb Hct MCV MCH MCHC RDW Plt Count Lymph % (Auto) [place] % (Auto) Lymph # [place] # Baso # Seg Neutrophils % Seg Neuts % (Manual) Lymphocytes % (Manual) Monocytes % (Manual) Eosinophils % (Manual) Basophils % (Manual) Nucleated RBC % Seg Neutrophils # Seg Neutrophils # Man Lymphocytes # (Manual) Monocytes # (Manual) Eosinophils # (Manual) Basophils # (Manual) PT INR Fibrinogen dRVVT Confirm Interp Factor V Activity POC ABG pH POC ABG pCO2 POC ABG pO2 ABG pO2 ABG HCO3 ABG Base Excess ABG Hemoglobin Oxyhemoglobin Sodium 136 L Potassium Chloride Carbon Dioxide BUN 65 H Creatinine 1.7 H Glucose 105 H POC Glucose 130 H 113 H Lactic Acid Calcium Ionized Calcium Phosphorus Magnesium Direct Bilirubin AST ALT Alkaline Phosphatase Lactate Dehydrogenase Troponin T C-Reactive Protein Total Protein Albumin Prealbumin Triglycerides Cholesterol LDL Cholesterol Direct HDL Cholesterol 25-OH Vitamin D Total PTH Intact Urine pH Urine WBC (Auto) Urine Creatinine Urine Total Protein Fluid Total Protein Vancomycin Trough Rheumatoid Factor Complement C4 Miscellaneous Test Crossmatch 02/11/17 02/11/17 02/12/17 11:56 23:18 06:19 WBC RBC Hgb Hct MCV MCH MCHC RDW Plt Count Lymph % (Auto) [place] % (Auto) Lymph # [place] # Baso # Seg Neutrophils % Seg Neuts % (Manual) Lymphocytes % (Manual) Monocytes % (Manual) Eosinophils % (Manual) Basophils % (Manual) Nucleated RBC % Seg Neutrophils # Seg Neutrophils # Man Lymphocytes # (Manual) Monocytes # (Manual) Eosinophils # (Manual) Basophils # (Manual) PT INR Fibrinogen dRVVT Confirm Interp Factor V Activity POC ABG pH POC ABG pCO2 POC ABG pO2 ABG pO2 ABG HCO3 ABG Base Excess ABG Hemoglobin Oxyhemoglobin Sodium 136 L Potassium Chloride 97.1 L Carbon Dioxide BUN 93 H Creatinine 2.4 H Glucose POC Glucose 126 H 119 H Lactic Acid Calcium 11.0 H Ionized Calcium Phosphorus Magnesium Direct Bilirubin AST ALT Alkaline Phosphatase Lactate Dehydrogenase Troponin T C-Reactive Protein Total Protein Albumin Prealbumin Triglycerides Cholesterol LDL Cholesterol Direct HDL Cholesterol 25-OH Vitamin D Total PTH Intact Urine pH Urine WBC (Auto) Urine Creatinine Urine Total Protein Fluid Total Protein Vancomycin Trough Rheumatoid Factor Complement C4 Miscellaneous Test Crossmatch 02/12/17 02/12/17 02/12/17 08:00 10:25 11:42 WBC 15.4 H RBC 2.63 L Hgb 6.9 L Hct 22.6 L MCV MCH 26 L MCHC RDW 20.5 H Plt Count Lymph % (Auto) [place] % (Auto) Lymph # [place] # Baso # Seg Neutrophils % Seg Neuts % (Manual) Lymphocytes % (Manual) Monocytes % (Manual) Eosinophils % (Manual) Basophils % (Manual) Nucleated RBC % Seg Neutrophils # Seg Neutrophils # Man Lymphocytes # (Manual) Monocytes # (Manual) Eosinophils # (Manual) Basophils # (Manual) PT INR Fibrinogen dRVVT Confirm Interp Factor V Activity POC ABG pH POC ABG pCO2 POC ABG pO2 ABG pO2 ABG HCO3 ABG Base Excess ABG Hemoglobin Oxyhemoglobin Sodium Potassium Chloride Carbon Dioxide BUN Creatinine Glucose POC Glucose 142 H Lactic Acid Calcium Ionized Calcium Phosphorus Magnesium Direct Bilirubin AST ALT Alkaline Phosphatase Lactate Dehydrogenase Troponin T C-Reactive Protein Total Protein Albumin Prealbumin Triglycerides Cholesterol LDL Cholesterol Direct HDL Cholesterol 25-OH Vitamin D Total PTH Intact Urine pH Urine WBC (Auto) Urine Creatinine Urine Total Protein Fluid Total Protein Vancomycin Trough Rheumatoid Factor Complement C4 Miscellaneous Test Crossmatch See Detail 02/12/17 02/13/17 02/13/17 18:04 00:04 05:00 WBC RBC Hgb Hct MCV MCH MCHC RDW Plt Count Lymph % (Auto) [place] % (Auto) Lymph # [place] # Baso # Seg Neutrophils % Seg Neuts % (Manual) Lymphocytes % (Manual) Monocytes % (Manual) Eosinophils % (Manual) Basophils % (Manual) Nucleated RBC % Seg Neutrophils # Seg Neutrophils # Man Lymphocytes # (Manual) Monocytes # (Manual) Eosinophils # (Manual) Basophils # (Manual) PT INR Fibrinogen dRVVT Confirm Interp Factor V Activity POC ABG pH POC ABG pCO2 POC ABG pO2 ABG pO2 ABG HCO3 ABG Base Excess ABG Hemoglobin Oxyhemoglobin Sodium 134 L Potassium Chloride 96.1 L Carbon Dioxide 20 L BUN 125 H Creatinine 3.0 H Glucose 111 H POC Glucose 135 H 109 H Lactic Acid Calcium 11.3 H Ionized Calcium Phosphorus Magnesium Direct Bilirubin AST ALT Alkaline Phosphatase Lactate Dehydrogenase Troponin T C-Reactive Protein Total Protein Albumin Prealbumin Triglycerides Cholesterol LDL Cholesterol Direct HDL Cholesterol 25-OH Vitamin D Total PTH Intact Urine pH Urine WBC (Auto) Urine Creatinine Urine Total Protein Fluid Total Protein Vancomycin Trough Rheumatoid Factor Complement C4 Miscellaneous Test Crossmatch 02/13/17 02/13/17 02/13/17 05:00 05:28 12:03 WBC 11.9 H RBC 2.92 L Hgb 7.8 L Hct 25.2 L MCV MCH 27 L MCHC RDW 19.3 H Plt Count Lymph % (Auto) [place] % (Auto) Lymph # [place] # Baso # Seg Neutrophils % Seg Neuts % (Manual) Lymphocytes % (Manual) Monocytes % (Manual) Eosinophils % (Manual) Basophils % (Manual) Nucleated RBC % Seg Neutrophils # Seg Neutrophils # Man Lymphocytes # (Manual) Monocytes # (Manual) Eosinophils # (Manual) Basophils # (Manual) PT INR Fibrinogen dRVVT Confirm Interp Factor V Activity POC ABG pH POC ABG pCO2 POC ABG pO2 ABG pO2 ABG HCO3 ABG Base Excess ABG Hemoglobin Oxyhemoglobin Sodium Potassium Chloride Carbon Dioxide BUN Creatinine Glucose POC Glucose 124 H 160 H Lactic Acid Calcium Ionized Calcium Phosphorus Magnesium Direct Bilirubin AST ALT Alkaline Phosphatase Lactate Dehydrogenase Troponin T C-Reactive Protein Total Protein Albumin Prealbumin Triglycerides Cholesterol LDL Cholesterol Direct HDL Cholesterol 25-OH Vitamin D Total PTH Intact Urine pH Urine WBC (Auto) Urine Creatinine Urine Total Protein Fluid Total Protein Vancomycin Trough Rheumatoid Factor Complement C4 Miscellaneous Test Crossmatch 02/13/17 02/14/17 02/14/17 18:09 06:16 08:08 WBC 15.2 H RBC 2.97 L Hgb 8.1 L Hct 26.3 L MCV MCH MCHC RDW 19.3 H Plt Count Lymph % (Auto) [place] % (Auto) Lymph # [place] # Baso # Seg Neutrophils % Seg Neuts % (Manual) Lymphocytes % (Manual) Monocytes % (Manual) Eosinophils % (Manual) Basophils % (Manual) Nucleated RBC % Seg Neutrophils # Seg Neutrophils # Man Lymphocytes # (Manual) Monocytes # (Manual) Eosinophils # (Manual) Basophils # (Manual) PT INR Fibrinogen dRVVT Confirm Interp Factor V Activity POC ABG pH POC ABG pCO2 POC ABG pO2 ABG pO2 ABG HCO3 ABG Base Excess ABG Hemoglobin Oxyhemoglobin Sodium Potassium Chloride Carbon Dioxide BUN Creatinine Glucose POC Glucose 110 H 112 H Lactic Acid Calcium Ionized Calcium Phosphorus Magnesium Direct Bilirubin AST ALT Alkaline Phosphatase Lactate Dehydrogenase Troponin T C-Reactive Protein Total Protein Albumin Prealbumin Triglycerides Cholesterol LDL Cholesterol Direct HDL Cholesterol 25-OH Vitamin D Total PTH Intact Urine pH Urine WBC (Auto) Urine Creatinine Urine Total Protein Fluid Total Protein Vancomycin Trough Rheumatoid Factor Complement C4 Miscellaneous Test Crossmatch 02/14/17 02/14/17 02/15/17 08:08 17:41 04:15 WBC RBC Hgb Hct MCV MCH MCHC RDW Plt Count Lymph % (Auto) [place] % (Auto) Lymph # [place] # Baso # Seg Neutrophils % Seg Neuts % (Manual) Lymphocytes % (Manual) Monocytes % (Manual) Eosinophils % (Manual) Basophils % (Manual) Nucleated RBC % Seg Neutrophils # Seg Neutrophils # Man Lymphocytes # (Manual) Monocytes # (Manual) Eosinophils # (Manual) Basophils # (Manual) PT INR Fibrinogen dRVVT Confirm Interp Factor V Activity POC ABG pH POC ABG pCO2 POC ABG pO2 ABG pO2 ABG HCO3 ABG Base Excess ABG Hemoglobin Oxyhemoglobin Sodium Potassium Chloride Carbon Dioxide 18 L 21 L BUN 79 H 113 H Creatinine 2.1 H 2.8 H Glucose POC Glucose 118 H Lactic Acid Calcium 10.7 H Ionized Calcium Phosphorus 1.70 L D Magnesium 1.60 L Direct Bilirubin AST ALT Alkaline Phosphatase Lactate Dehydrogenase Troponin T C-Reactive Protein Total Protein Albumin Prealbumin Triglycerides Cholesterol LDL Cholesterol Direct HDL Cholesterol 25-OH Vitamin D Total PTH Intact Urine pH Urine WBC (Auto) Urine Creatinine Urine Total Protein Fluid Total Protein Vancomycin Trough Rheumatoid Factor Complement C4 Miscellaneous Test Crossmatch 02/15/17 02/15/17 02/15/17 06:06 11:31 17:52 WBC RBC Hgb Hct MCV MCH MCHC RDW Plt Count Lymph % (Auto) [place] % (Auto) Lymph # [place] # Baso # Seg Neutrophils % Seg Neuts % (Manual) Lymphocytes % (Manual) Monocytes % (Manual) Eosinophils % (Manual) Basophils % (Manual) Nucleated RBC % Seg Neutrophils # Seg Neutrophils # Man Lymphocytes # (Manual) Monocytes # (Manual) Eosinophils # (Manual) Basophils # (Manual) PT INR Fibrinogen dRVVT Confirm Interp Factor V Activity POC ABG pH POC ABG pCO2 POC ABG pO2 ABG pO2 ABG HCO3 ABG Base Excess ABG Hemoglobin Oxyhemoglobin Sodium Potassium Chloride Carbon Dioxide BUN Creatinine Glucose POC Glucose 115 H 129 H 201 H Lactic Acid Calcium Ionized Calcium Phosphorus Magnesium Direct Bilirubin AST ALT Alkaline Phosphatase Lactate Dehydrogenase Troponin T C-Reactive Protein Total Protein Albumin Prealbumin Triglycerides Cholesterol LDL Cholesterol Direct HDL Cholesterol 25-OH Vitamin D Total PTH Intact Urine pH Urine WBC (Auto) Urine Creatinine Urine Total Protein Fluid Total Protein Vancomycin Trough Rheumatoid Factor Complement C4 Miscellaneous Test Crossmatch 02/15/17 02/15/17 02/15/17 19:08 19:08 19:08 WBC RBC Hgb Hct MCV MCH MCHC RDW Plt Count Lymph % (Auto) [place] % (Auto) Lymph # [place] # Baso # Seg Neutrophils % Seg Neuts % (Manual) Lymphocytes % (Manual) Monocytes % (Manual) Eosinophils % (Manual) Basophils % (Manual) Nucleated RBC % Seg Neutrophils # Seg Neutrophils # Man Lymphocytes # (Manual) Monocytes # (Manual) Eosinophils # (Manual) Basophils # (Manual) PT INR Fibrinogen dRVVT Confirm Interp Factor V Activity POC ABG pH POC ABG pCO2 POC ABG pO2 ABG pO2 ABG HCO3 ABG Base Excess ABG Hemoglobin Oxyhemoglobin Sodium Potassium Chloride Carbon Dioxide BUN Creatinine Glucose POC Glucose Lactic Acid Calcium Ionized Calcium 6.0 H Phosphorus Magnesium Direct Bilirubin AST ALT Alkaline Phosphatase Lactate Dehydrogenase Troponin T C-Reactive Protein Total Protein Albumin Prealbumin Triglycerides Cholesterol LDL Cholesterol Direct HDL Cholesterol 25-OH Vitamin D Total 13 L PTH Intact 10.88 L Urine pH Urine WBC (Auto) Urine Creatinine Urine Total Protein Fluid Total Protein Vancomycin Trough Rheumatoid Factor Complement C4 Miscellaneous Test Crossmatch 02/16/17 02/16/17 02/16/17 05:12 06:00 12:39 WBC RBC Hgb Hct MCV MCH MCHC RDW Plt Count Lymph % (Auto) [place] % (Auto) Lymph # [place] # Baso # Seg Neutrophils % Seg Neuts % (Manual) Lymphocytes % (Manual) Monocytes % (Manual) Eosinophils % (Manual) Basophils % (Manual) Nucleated RBC % Seg Neutrophils # Seg Neutrophils # Man Lymphocytes # (Manual) Monocytes # (Manual) Eosinophils # (Manual) Basophils # (Manual) PT INR Fibrinogen dRVVT Confirm Interp Factor V Activity POC ABG pH POC ABG pCO2 POC ABG pO2 ABG pO2 ABG HCO3 ABG Base Excess ABG Hemoglobin Oxyhemoglobin Sodium Potassium Chloride Carbon Dioxide BUN 74 H Creatinine 1.7 H Glucose 102 H POC Glucose 125 H 109 H Lactic Acid Calcium Ionized Calcium Phosphorus 2.10 L D Magnesium Direct Bilirubin AST ALT Alkaline Phosphatase Lactate Dehydrogenase Troponin T C-Reactive Protein Total Protein Albumin Prealbumin Triglycerides Cholesterol LDL Cholesterol Direct HDL Cholesterol 25-OH Vitamin D Total PTH Intact Urine pH Urine WBC (Auto) Urine Creatinine Urine Total Protein Fluid Total Protein Vancomycin Trough Rheumatoid Factor Complement C4 Miscellaneous Test Crossmatch 02/16/17 02/16/17 02/17/17 17:31 23:57 05:30 WBC RBC Hgb Hct MCV MCH MCHC RDW Plt Count Lymph % (Auto) [place] % (Auto) Lymph # [place] # Baso # Seg Neutrophils % Seg Neuts % (Manual) Lymphocytes % (Manual) Monocytes % (Manual) Eosinophils % (Manual) Basophils % (Manual) Nucleated RBC % Seg Neutrophils # Seg Neutrophils # Man Lymphocytes # (Manual) Monocytes # (Manual) Eosinophils # (Manual) Basophils # (Manual) PT INR Fibrinogen dRVVT Confirm Interp Factor V Activity POC ABG pH POC ABG pCO2 POC ABG pO2 ABG pO2 ABG HCO3 ABG Base Excess ABG Hemoglobin Oxyhemoglobin Sodium Potassium Chloride Carbon Dioxide BUN Creatinine Glucose POC Glucose 106 H 127 H 122 H Lactic Acid Calcium Ionized Calcium Phosphorus Magnesium Direct Bilirubin AST ALT Alkaline Phosphatase Lactate Dehydrogenase Troponin T C-Reactive Protein Total Protein Albumin Prealbumin Triglycerides Cholesterol LDL Cholesterol Direct HDL Cholesterol 25-OH Vitamin D Total PTH Intact Urine pH Urine WBC (Auto) Urine Creatinine Urine Total Protein Fluid Total Protein Vancomycin Trough Rheumatoid Factor Complement C4 Miscellaneous Test Crossmatch 02/17/17 02/17/17 02/17/17 06:00 12:17 17:57 WBC RBC Hgb Hct MCV MCH MCHC RDW Plt Count Lymph % (Auto) [place] % (Auto) Lymph # [place] # Baso # Seg Neutrophils % Seg Neuts % (Manual) Lymphocytes % (Manual) Monocytes % (Manual) Eosinophils % (Manual) Basophils % (Manual) Nucleated RBC % Seg Neutrophils # Seg Neutrophils # Man Lymphocytes # (Manual) Monocytes # (Manual) Eosinophils # (Manual) Basophils # (Manual) PT INR Fibrinogen dRVVT Confirm Interp Factor V Activity POC ABG pH POC ABG pCO2 POC ABG pO2 ABG pO2 ABG HCO3 ABG Base Excess ABG Hemoglobin Oxyhemoglobin Sodium Potassium Chloride Carbon Dioxide BUN 94 H Creatinine 2.3 H Glucose 106 H POC Glucose 173 H 140 H Lactic Acid Calcium Ionized Calcium Phosphorus Magnesium Direct Bilirubin AST ALT Alkaline Phosphatase Lactate Dehydrogenase Troponin T C-Reactive Protein Total Protein Albumin Prealbumin Triglycerides Cholesterol LDL Cholesterol Direct HDL Cholesterol 25-OH Vitamin D Total PTH Intact Urine pH Urine WBC (Auto) Urine Creatinine Urine Total Protein Fluid Total Protein Vancomycin Trough Rheumatoid Factor Complement C4 Miscellaneous Test Crossmatch 02/18/17 02/18/17 02/18/17 00:20 05:30 06:14 WBC RBC Hgb Hct MCV MCH MCHC RDW Plt Count Lymph % (Auto) [place] % (Auto) Lymph # [place] # Baso # Seg Neutrophils % Seg Neuts % (Manual) Lymphocytes % (Manual) Monocytes % (Manual) Eosinophils % (Manual) Basophils % (Manual) Nucleated RBC % Seg Neutrophils # Seg Neutrophils # Man Lymphocytes # (Manual) Monocytes # (Manual) Eosinophils # (Manual) Basophils # (Manual) PT INR Fibrinogen dRVVT Confirm Interp Factor V Activity POC ABG pH POC ABG pCO2 POC ABG pO2 ABG pO2 ABG HCO3 ABG Base Excess ABG Hemoglobin Oxyhemoglobin Sodium 136 L Potassium Chloride 97.5 L Carbon Dioxide BUN 73 H Creatinine 1.9 H Glucose POC Glucose 132 H 106 H Lactic Acid Calcium Ionized Calcium Phosphorus Magnesium Direct Bilirubin AST ALT Alkaline Phosphatase Lactate Dehydrogenase Troponin T C-Reactive Protein Total Protein Albumin Prealbumin Triglycerides Cholesterol LDL Cholesterol Direct HDL Cholesterol 25-OH Vitamin D Total PTH Intact Urine pH Urine WBC (Auto) Urine Creatinine Urine Total Protein Fluid Total Protein Vancomycin Trough Rheumatoid Factor Complement C4 Miscellaneous Test Crossmatch 02/18/17 02/18/17 02/18/17 09:51 11:32 17:59 WBC 13.1 H RBC 2.77 L Hgb 7.6 L Hct 23.9 L MCV MCH MCHC RDW 19.0 H Plt Count Lymph % (Auto) [place] % (Auto) 11.1 H Lymph # [place] # 1.5 H Baso # Seg Neutrophils % Seg Neuts % (Manual) Lymphocytes % (Manual) Monocytes % (Manual) Eosinophils % (Manual) Basophils % (Manual) Nucleated RBC % Seg Neutrophils # 9.1 H Seg Neutrophils # Man Lymphocytes # (Manual) Monocytes # (Manual) Eosinophils # (Manual) Basophils # (Manual) PT INR Fibrinogen dRVVT Confirm Interp Factor V Activity POC ABG pH POC ABG pCO2 POC ABG pO2 ABG pO2 ABG HCO3 ABG Base Excess ABG Hemoglobin Oxyhemoglobin Sodium Potassium Chloride Carbon Dioxide BUN Creatinine Glucose POC Glucose 123 H 119 H Lactic Acid Calcium Ionized Calcium Phosphorus Magnesium Direct Bilirubin AST ALT Alkaline Phosphatase Lactate Dehydrogenase Troponin T C-Reactive Protein Total Protein Albumin Prealbumin Triglycerides Cholesterol LDL Cholesterol Direct HDL Cholesterol 25-OH Vitamin D Total PTH Intact Urine pH Urine WBC (Auto) Urine Creatinine Urine Total Protein Fluid Total Protein Vancomycin Trough Rheumatoid Factor Complement C4 Miscellaneous Test Crossmatch 02/18/17 02/19/17 02/19/17 23:47 05:36 09:45 WBC RBC Hgb Hct MCV MCH 27 L MCHC RDW 19.2 H Plt Count Lymph % (Auto) [place] % (Auto) Lymph # [place] # Baso # Seg Neutrophils % Seg Neuts % (Manual) Lymphocytes % (Manual) Monocytes % (Manual) Eosinophils % (Manual) Basophils % (Manual) Nucleated RBC % Seg Neutrophils # Seg Neutrophils # Man Lymphocytes # (Manual) Monocytes # (Manual) Eosinophils # (Manual) Basophils # (Manual) PT INR Fibrinogen dRVVT Confirm Interp Factor V Activity POC ABG pH POC ABG pCO2 POC ABG pO2 ABG pO2 ABG HCO3 ABG Base Excess ABG Hemoglobin Oxyhemoglobin Sodium Potassium Chloride Carbon Dioxide BUN Creatinine Glucose POC Glucose 110 H 121 H Lactic Acid Calcium Ionized Calcium Phosphorus Magnesium Direct Bilirubin AST ALT Alkaline Phosphatase Lactate Dehydrogenase Troponin T C-Reactive Protein Total Protein Albumin Prealbumin Triglycerides Cholesterol LDL Cholesterol Direct HDL Cholesterol 25-OH Vitamin D Total PTH Intact Urine pH Urine WBC (Auto) Urine Creatinine Urine Total Protein Fluid Total Protein Vancomycin Trough Rheumatoid Factor Complement C4 Miscellaneous Test Crossmatch 02/19/17 02/20/17 02/20/17 09:45 00:10 06:15 WBC RBC Hgb Hct MCV MCH MCHC RDW Plt Count Lymph % (Auto) [place] % (Auto) Lymph # [place] # Baso # Seg Neutrophils % Seg Neuts % (Manual) Lymphocytes % (Manual) Monocytes % (Manual) Eosinophils % (Manual) Basophils % (Manual) Nucleated RBC % Seg Neutrophils # Seg Neutrophils # Man Lymphocytes # (Manual) Monocytes # (Manual) Eosinophils # (Manual) Basophils # (Manual) PT INR Fibrinogen dRVVT Confirm Interp Factor V Activity POC ABG pH POC ABG pCO2 POC ABG pO2 ABG pO2 ABG HCO3 ABG Base Excess ABG Hemoglobin Oxyhemoglobin Sodium 136 L Potassium 5.1 H Chloride 97.6 L Carbon Dioxide 20 L 18 L BUN 110 H 135 H Creatinine 2.6 H 3.2 H Glucose 106 H 110 H POC Glucose 117 H Lactic Acid Calcium Ionized Calcium Phosphorus 4.70 H D 5.60 H Magnesium Direct Bilirubin AST ALT Alkaline Phosphatase Lactate Dehydrogenase Troponin T C-Reactive Protein Total Protein Albumin Prealbumin Triglycerides Cholesterol LDL Cholesterol Direct HDL Cholesterol 25-OH Vitamin D Total PTH Intact Urine pH Urine WBC (Auto) Urine Creatinine Urine Total Protein Fluid Total Protein Vancomycin Trough Rheumatoid Factor Complement C4 Miscellaneous Test Crossmatch 02/20/17 02/20/17 02/21/17 11:30 17:51 00:14 WBC RBC Hgb Hct MCV MCH MCHC RDW Plt Count Lymph % (Auto) [place] % (Auto) Lymph # [place] # Baso # Seg Neutrophils % Seg Neuts % (Manual) Lymphocytes % (Manual) Monocytes % (Manual) Eosinophils % (Manual) Basophils % (Manual) Nucleated RBC % Seg Neutrophils # Seg Neutrophils # Man Lymphocytes # (Manual) Monocytes # (Manual) Eosinophils # (Manual) Basophils # (Manual) PT INR Fibrinogen dRVVT Confirm Interp Factor V Activity POC ABG pH POC ABG pCO2 POC ABG pO2 ABG pO2 ABG HCO3 ABG Base Excess ABG Hemoglobin Oxyhemoglobin Sodium Potassium Chloride Carbon Dioxide BUN Creatinine Glucose POC Glucose 173 H 133 H 125 H Lactic Acid Calcium Ionized Calcium Phosphorus Magnesium Direct Bilirubin AST ALT Alkaline Phosphatase Lactate Dehydrogenase Troponin T C-Reactive Protein Total Protein Albumin Prealbumin Triglycerides Cholesterol LDL Cholesterol Direct HDL Cholesterol 25-OH Vitamin D Total PTH Intact Urine pH Urine WBC (Auto) Urine Creatinine Urine Total Protein Fluid Total Protein Vancomycin Trough Rheumatoid Factor Complement C4 Miscellaneous Test Crossmatch 02/21/17 02/21/17 02/21/17 04:09 05:03 11:58 WBC RBC Hgb Hct MCV MCH MCHC RDW Plt Count Lymph % (Auto) [place] % (Auto) Lymph # [place] # Baso # Seg Neutrophils % Seg Neuts % (Manual) Lymphocytes % (Manual) Monocytes % (Manual) Eosinophils % (Manual) Basophils % (Manual) Nucleated RBC % Seg Neutrophils # Seg Neutrophils # Man Lymphocytes # (Manual) Monocytes # (Manual) Eosinophils # (Manual) Basophils # (Manual) PT INR Fibrinogen dRVVT Confirm Interp Factor V Activity POC ABG pH POC ABG pCO2 POC ABG pO2 ABG pO2 ABG HCO3 ABG Base Excess ABG Hemoglobin Oxyhemoglobin Sodium 135 L Potassium Chloride Carbon Dioxide 20 L BUN 76 H Creatinine 2.0 H Glucose 125 H POC Glucose 134 H 139 H Lactic Acid Calcium Ionized Calcium Phosphorus Magnesium Direct Bilirubin AST ALT Alkaline Phosphatase Lactate Dehydrogenase Troponin T C-Reactive Protein Total Protein Albumin Prealbumin Triglycerides Cholesterol LDL Cholesterol Direct HDL Cholesterol 25-OH Vitamin D Total PTH Intact Urine pH Urine WBC (Auto) Urine Creatinine Urine Total Protein Fluid Total Protein Vancomycin Trough Rheumatoid Factor Complement C4 Miscellaneous Test Crossmatch 02/21/17 02/21/17 02/22/17 17:16 23:41 04:10 WBC RBC Hgb Hct MCV MCH MCHC RDW Plt Count Lymph % (Auto) [place] % (Auto) Lymph # [place] # Baso # Seg Neutrophils % Seg Neuts % (Manual) Lymphocytes % (Manual) Monocytes % (Manual) Eosinophils % (Manual) Basophils % (Manual) Nucleated RBC % Seg Neutrophils # Seg Neutrophils # Man Lymphocytes # (Manual) Monocytes # (Manual) Eosinophils # (Manual) Basophils # (Manual) PT INR Fibrinogen dRVVT Confirm Interp Factor V Activity POC ABG pH POC ABG pCO2 POC ABG pO2 ABG pO2 ABG HCO3 ABG Base Excess ABG Hemoglobin Oxyhemoglobin Sodium 135 L Potassium Chloride 97.7 L Carbon Dioxide 21 L BUN 101 H Creatinine 2.5 H Glucose 116 H POC Glucose 120 H 128 H Lactic Acid Calcium Ionized Calcium Phosphorus Magnesium Direct Bilirubin AST ALT Alkaline Phosphatase Lactate Dehydrogenase Troponin T C-Reactive Protein Total Protein Albumin 1.3 L Prealbumin Triglycerides Cholesterol LDL Cholesterol Direct HDL Cholesterol 25-OH Vitamin D Total PTH Intact Urine pH Urine WBC (Auto) Urine Creatinine Urine Total Protein Fluid Total Protein Vancomycin Trough Rheumatoid Factor Complement C4 Miscellaneous Test Crossmatch 02/22/17 02/22/17 02/22/17 06:03 11:38 18:19 WBC RBC Hgb Hct MCV MCH MCHC RDW Plt Count Lymph % (Auto) [place] % (Auto) Lymph # [place] # Baso # Seg Neutrophils % Seg Neuts % (Manual) Lymphocytes % (Manual) Monocytes % (Manual) Eosinophils % (Manual) Basophils % (Manual) Nucleated RBC % Seg Neutrophils # Seg Neutrophils # Man Lymphocytes # (Manual) Monocytes # (Manual) Eosinophils # (Manual) Basophils # (Manual) PT INR Fibrinogen dRVVT Confirm Interp Factor V Activity POC ABG pH POC ABG pCO2 POC ABG pO2 ABG pO2 ABG HCO3 ABG Base Excess ABG Hemoglobin Oxyhemoglobin Sodium Potassium Chloride Carbon Dioxide BUN Creatinine Glucose POC Glucose 126 H 147 H 121 H Lactic Acid Calcium Ionized Calcium Phosphorus Magnesium Direct Bilirubin AST ALT Alkaline Phosphatase Lactate Dehydrogenase Troponin T C-Reactive Protein Total Protein Albumin Prealbumin Triglycerides Cholesterol LDL Cholesterol Direct HDL Cholesterol 25-OH Vitamin D Total PTH Intact Urine pH Urine WBC (Auto) Urine Creatinine Urine Total Protein Fluid Total Protein Vancomycin Trough Rheumatoid Factor Complement C4 Miscellaneous Test Crossmatch 02/23/17 02/23/17 02/23/17 05:00 05:46 12:27 WBC RBC Hgb Hct MCV MCH MCHC RDW Plt Count Lymph % (Auto) [place] % (Auto) Lymph # [place] # Baso # Seg Neutrophils % Seg Neuts % (Manual) Lymphocytes % (Manual) Monocytes % (Manual) Eosinophils % (Manual) Basophils % (Manual) Nucleated RBC % Seg Neutrophils # Seg Neutrophils # Man Lymphocytes # (Manual) Monocytes # (Manual) Eosinophils # (Manual) Basophils # (Manual) PT INR Fibrinogen dRVVT Confirm Interp Factor V Activity POC ABG pH POC ABG pCO2 POC ABG pO2 ABG pO2 ABG HCO3 ABG Base Excess ABG Hemoglobin Oxyhemoglobin Sodium 136 L Potassium Chloride 97.1 L Carbon Dioxide BUN 50 H Creatinine 1.5 H Glucose POC Glucose 110 H 115 H Lactic Acid Calcium 8.1 L Ionized Calcium Phosphorus 1.90 L D Magnesium Direct Bilirubin AST ALT Alkaline Phosphatase Lactate Dehydrogenase Troponin T C-Reactive Protein Total Protein Albumin Prealbumin Triglycerides Cholesterol LDL Cholesterol Direct HDL Cholesterol 25-OH Vitamin D Total PTH Intact Urine pH Urine WBC (Auto) Urine Creatinine Urine Total Protein Fluid Total Protein Vancomycin Trough Rheumatoid Factor Complement C4 Miscellaneous Test Crossmatch 02/23/17 02/23/17 02/24/17 18:02 23:18 05:04 WBC RBC Hgb Hct MCV MCH MCHC RDW Plt Count Lymph % (Auto) [place] % (Auto) Lymph # [place] # Baso # Seg Neutrophils % Seg Neuts % (Manual) Lymphocytes % (Manual) Monocytes % (Manual) Eosinophils % (Manual) Basophils % (Manual) Nucleated RBC % Seg Neutrophils # Seg Neutrophils # Man Lymphocytes # (Manual) Monocytes # (Manual) Eosinophils # (Manual) Basophils # (Manual) PT INR Fibrinogen dRVVT Confirm Interp Factor V Activity POC ABG pH POC ABG pCO2 POC ABG pO2 ABG pO2 ABG HCO3 ABG Base Excess ABG Hemoglobin Oxyhemoglobin Sodium Potassium Chloride Carbon Dioxide BUN Creatinine Glucose POC Glucose 111 H 126 H 121 H Lactic Acid Calcium Ionized Calcium Phosphorus Magnesium Direct Bilirubin AST ALT Alkaline Phosphatase Lactate Dehydrogenase Troponin T C-Reactive Protein Total Protein Albumin Prealbumin Triglycerides Cholesterol LDL Cholesterol Direct HDL Cholesterol 25-OH Vitamin D Total PTH Intact Urine pH Urine WBC (Auto) Urine Creatinine Urine Total Protein Fluid Total Protein Vancomycin Trough Rheumatoid Factor Complement C4 Miscellaneous Test Crossmatch 02/24/17 02/24/17 02/24/17 05:20 10:05 11:34 WBC RBC 2.95 L Hgb 8.4 L Hct 25.7 L MCV MCH MCHC RDW 20.8 H Plt Count Lymph % (Auto) [place] % (Auto) Lymph # [place] # Baso # Seg Neutrophils % 71.8 H Seg Neuts % (Manual) Lymphocytes % (Manual) Monocytes % (Manual) Eosinophils % (Manual) Basophils % (Manual) Nucleated RBC % Seg Neutrophils # Seg Neutrophils # Man Lymphocytes # (Manual) Monocytes # (Manual) Eosinophils # (Manual) Basophils # (Manual) PT INR Fibrinogen dRVVT Confirm Interp Factor V Activity POC ABG pH POC ABG pCO2 POC ABG pO2 ABG pO2 ABG HCO3 ABG Base Excess ABG Hemoglobin Oxyhemoglobin Sodium 136 L Potassium Chloride 95.5 L Carbon Dioxide BUN 76 H Creatinine 2.2 H Glucose 109 H POC Glucose 123 H Lactic Acid Calcium Ionized Calcium Phosphorus Magnesium Direct Bilirubin AST ALT Alkaline Phosphatase Lactate Dehydrogenase Troponin T C-Reactive Protein Total Protein Albumin Prealbumin Triglycerides Cholesterol LDL Cholesterol Direct HDL Cholesterol 25-OH Vitamin D Total PTH Intact Urine pH Urine WBC (Auto) Urine Creatinine Urine Total Protein Fluid Total Protein Vancomycin Trough Rheumatoid Factor Complement C4 Miscellaneous Test Crossmatch 02/24/17 02/24/17 02/25/17 17:43 23:02 05:00 WBC RBC Hgb Hct MCV MCH MCHC RDW Plt Count Lymph % (Auto) [place] % (Auto) Lymph # [place] # Baso # Seg Neutrophils % Seg Neuts % (Manual) Lymphocytes % (Manual) Monocytes % (Manual) Eosinophils % (Manual) Basophils % (Manual) Nucleated RBC % Seg Neutrophils # Seg Neutrophils # Man Lymphocytes # (Manual) Monocytes # (Manual) Eosinophils # (Manual) Basophils # (Manual) PT INR Fibrinogen dRVVT Confirm Interp Factor V Activity POC ABG pH POC ABG pCO2 POC ABG pO2 ABG pO2 ABG HCO3 ABG Base Excess ABG Hemoglobin Oxyhemoglobin Sodium Potassium Chloride 96.8 L Carbon Dioxide BUN 94 H Creatinine 2.8 H Glucose 118 H POC Glucose 128 H 144 H Lactic Acid Calcium Ionized Calcium Phosphorus Magnesium Direct Bilirubin AST ALT Alkaline Phosphatase Lactate Dehydrogenase Troponin T C-Reactive Protein Total Protein Albumin Prealbumin Triglycerides Cholesterol LDL Cholesterol Direct HDL Cholesterol 25-OH Vitamin D Total PTH Intact Urine pH Urine WBC (Auto) Urine Creatinine Urine Total Protein Fluid Total Protein Vancomycin Trough Rheumatoid Factor Complement C4 Miscellaneous Test Crossmatch 02/25/17 02/25/17 02/25/17 05:32 11:44 18:18 WBC RBC Hgb Hct MCV MCH MCHC RDW Plt Count Lymph % (Auto) [place] % (Auto) Lymph # [place] # Baso # Seg Neutrophils % Seg Neuts % (Manual) Lymphocytes % (Manual) Monocytes % (Manual) Eosinophils % (Manual) Basophils % (Manual) Nucleated RBC % Seg Neutrophils # Seg Neutrophils # Man Lymphocytes # (Manual) Monocytes # (Manual) Eosinophils # (Manual) Basophils # (Manual) PT INR Fibrinogen dRVVT Confirm Interp Factor V Activity POC ABG pH POC ABG pCO2 POC ABG pO2 ABG pO2 ABG HCO3 ABG Base Excess ABG Hemoglobin Oxyhemoglobin Sodium Potassium Chloride Carbon Dioxide BUN Creatinine Glucose POC Glucose 118 H 106 H 210 H Lactic Acid Calcium Ionized Calcium Phosphorus Magnesium Direct Bilirubin AST ALT Alkaline Phosphatase Lactate Dehydrogenase Troponin T C-Reactive Protein Total Protein Albumin Prealbumin Triglycerides Cholesterol LDL Cholesterol Direct HDL Cholesterol 25-OH Vitamin D Total PTH Intact Urine pH Urine WBC (Auto) Urine Creatinine Urine Total Protein Fluid Total Protein Vancomycin Trough Rheumatoid Factor Complement C4 Miscellaneous Test Crossmatch 02/26/17 02/26/17 02/26/17 00:07 05:14 12:07 WBC RBC Hgb Hct MCV MCH MCHC RDW Plt Count Lymph % (Auto) [place] % (Auto) Lymph # [place] # Baso # Seg Neutrophils % Seg Neuts % (Manual) Lymphocytes % (Manual) Monocytes % (Manual) Eosinophils % (Manual) Basophils % (Manual) Nucleated RBC % Seg Neutrophils # Seg Neutrophils # Man Lymphocytes # (Manual) Monocytes # (Manual) Eosinophils # (Manual) Basophils # (Manual) PT INR Fibrinogen dRVVT Confirm Interp Factor V Activity POC ABG pH POC ABG pCO2 POC ABG pO2 ABG pO2 ABG HCO3 ABG Base Excess ABG Hemoglobin Oxyhemoglobin Sodium Potassium Chloride Carbon Dioxide BUN Creatinine Glucose POC Glucose 136 H 142 H 132 H Lactic Acid Calcium Ionized Calcium Phosphorus Magnesium Direct Bilirubin AST ALT Alkaline Phosphatase Lactate Dehydrogenase Troponin T C-Reactive Protein Total Protein Albumin Prealbumin Triglycerides Cholesterol LDL Cholesterol Direct HDL Cholesterol 25-OH Vitamin D Total PTH Intact Urine pH Urine WBC (Auto) Urine Creatinine Urine Total Protein Fluid Total Protein Vancomycin Trough Rheumatoid Factor Complement C4 Miscellaneous Test Crossmatch 02/26/17 02/26/17 02/27/17 18:35 23:54 06:25 WBC RBC Hgb Hct MCV MCH MCHC RDW Plt Count Lymph % (Auto) [place] % (Auto) Lymph # [place] # Baso # Seg Neutrophils % Seg Neuts % (Manual) Lymphocytes % (Manual) Monocytes % (Manual) Eosinophils % (Manual) Basophils % (Manual) Nucleated RBC % Seg Neutrophils # Seg Neutrophils # Man Lymphocytes # (Manual) Monocytes # (Manual) Eosinophils # (Manual) Basophils # (Manual) PT INR Fibrinogen dRVVT Confirm Interp Factor V Activity POC ABG pH POC ABG pCO2 POC ABG pO2 ABG pO2 ABG HCO3 ABG Base Excess ABG Hemoglobin Oxyhemoglobin Sodium Potassium Chloride Carbon Dioxide BUN Creatinine Glucose POC Glucose 155 H 150 H 138 H Lactic Acid Calcium Ionized Calcium Phosphorus Magnesium Direct Bilirubin AST ALT Alkaline Phosphatase Lactate Dehydrogenase Troponin T C-Reactive Protein Total Protein Albumin Prealbumin Triglycerides Cholesterol LDL Cholesterol Direct HDL Cholesterol 25-OH Vitamin D Total PTH Intact Urine pH Urine WBC (Auto) Urine Creatinine Urine Total Protein Fluid Total Protein Vancomycin Trough Rheumatoid Factor Complement C4 Miscellaneous Test Crossmatch 02/27/17 02/27/17 02/27/17 08:50 11:50 17:38 WBC RBC Hgb Hct MCV MCH MCHC RDW Plt Count Lymph % (Auto) [place] % (Auto) Lymph # [place] # Baso # Seg Neutrophils % Seg Neuts % (Manual) Lymphocytes % (Manual) Monocytes % (Manual) Eosinophils % (Manual) Basophils % (Manual) Nucleated RBC % Seg Neutrophils # Seg Neutrophils # Man Lymphocytes # (Manual) Monocytes # (Manual) Eosinophils # (Manual) Basophils # (Manual) PT INR Fibrinogen dRVVT Confirm Interp Factor V Activity POC ABG pH POC ABG pCO2 POC ABG pO2 ABG pO2 ABG HCO3 ABG Base Excess ABG Hemoglobin Oxyhemoglobin Sodium Potassium 3.2 L Chloride Carbon Dioxide BUN 95 H Creatinine 2.7 H Glucose 179 H POC Glucose 150 H 133 H Lactic Acid Calcium Ionized Calcium Phosphorus Magnesium Direct Bilirubin AST ALT Alkaline Phosphatase Lactate Dehydrogenase Troponin T C-Reactive Protein Total Protein Albumin Prealbumin Triglycerides Cholesterol LDL Cholesterol Direct HDL Cholesterol 25-OH Vitamin D Total PTH Intact Urine pH Urine WBC (Auto) Urine Creatinine Urine Total Protein Fluid Total Protein Vancomycin Trough Rheumatoid Factor Complement C4 Miscellaneous Test Crossmatch 02/27/17 02/28/17 02/28/17 23:55 05:23 06:10 WBC RBC Hgb Hct MCV MCH MCHC RDW Plt Count Lymph % (Auto) [place] % (Auto) Lymph # [place] # Baso # Seg Neutrophils % Seg Neuts % (Manual) Lymphocytes % (Manual) Monocytes % (Manual) Eosinophils % (Manual) Basophils % (Manual) Nucleated RBC % Seg Neutrophils # Seg Neutrophils # Man Lymphocytes # (Manual) Monocytes # (Manual) Eosinophils # (Manual) Basophils # (Manual) PT INR Fibrinogen dRVVT Confirm Interp Factor V Activity POC ABG pH POC ABG pCO2 POC ABG pO2 ABG pO2 ABG HCO3 ABG Base Excess ABG Hemoglobin Oxyhemoglobin Sodium 134 L Potassium 3.0 L Chloride 94.9 L Carbon Dioxide BUN 53 H Creatinine 1.9 H Glucose 138 H POC Glucose 134 H 164 H Lactic Acid Calcium Ionized Calcium Phosphorus 2.00 L D Magnesium Direct Bilirubin AST ALT Alkaline Phosphatase Lactate Dehydrogenase Troponin T C-Reactive Protein Total Protein Albumin Prealbumin Triglycerides Cholesterol LDL Cholesterol Direct HDL Cholesterol 25-OH Vitamin D Total PTH Intact Urine pH Urine WBC (Auto) Urine Creatinine Urine Total Protein Fluid Total Protein Vancomycin Trough Rheumatoid Factor Complement C4 Miscellaneous Test Crossmatch 02/28/17 02/28/17 02/28/17 12:18 17:54 23:47 WBC RBC Hgb Hct MCV MCH MCHC RDW Plt Count Lymph % (Auto) [place] % (Auto) Lymph # [place] # Baso # Seg Neutrophils % Seg Neuts % (Manual) Lymphocytes % (Manual) Monocytes % (Manual) Eosinophils % (Manual) Basophils % (Manual) Nucleated RBC % Seg Neutrophils # Seg Neutrophils # Man Lymphocytes # (Manual) Monocytes # (Manual) Eosinophils # (Manual) Basophils # (Manual) PT INR Fibrinogen dRVVT Confirm Interp Factor V Activity POC ABG pH POC ABG pCO2 POC ABG pO2 ABG pO2 ABG HCO3 ABG Base Excess ABG Hemoglobin Oxyhemoglobin Sodium Potassium Chloride Carbon Dioxide BUN Creatinine Glucose POC Glucose 135 H 140 H 144 H Lactic Acid Calcium Ionized Calcium Phosphorus Magnesium Direct Bilirubin AST ALT Alkaline Phosphatase Lactate Dehydrogenase Troponin T C-Reactive Protein Total Protein Albumin Prealbumin Triglycerides Cholesterol LDL Cholesterol Direct HDL Cholesterol 25-OH Vitamin D Total PTH Intact Urine pH Urine WBC (Auto) Urine Creatinine Urine Total Protein Fluid Total Protein Vancomycin Trough Rheumatoid Factor Complement C4 Miscellaneous Test Crossmatch 03/01/17 03/01/17 03/01/17 04:00 12:02 17:13 WBC RBC Hgb Hct MCV MCH MCHC RDW Plt Count Lymph % (Auto) [place] % (Auto) Lymph # [place] # Baso # Seg Neutrophils % Seg Neuts % (Manual) Lymphocytes % (Manual) Monocytes % (Manual) Eosinophils % (Manual) Basophils % (Manual) Nucleated RBC % Seg Neutrophils # Seg Neutrophils # Man Lymphocytes # (Manual) Monocytes # (Manual) Eosinophils # (Manual) Basophils # (Manual) PT INR Fibrinogen dRVVT Confirm Interp Factor V Activity POC ABG pH POC ABG pCO2 POC ABG pO2 ABG pO2 ABG HCO3 ABG Base Excess ABG Hemoglobin Oxyhemoglobin Sodium Potassium 3.0 L Chloride 97.0 L Carbon Dioxide BUN 81 H Creatinine 2.6 H Glucose 121 H POC Glucose 165 H 126 H Lactic Acid Calcium Ionized Calcium Phosphorus Magnesium Direct Bilirubin AST ALT Alkaline Phosphatase Lactate Dehydrogenase Troponin T C-Reactive Protein Total Protein Albumin Prealbumin Triglycerides Cholesterol LDL Cholesterol Direct HDL Cholesterol 25-OH Vitamin D Total PTH Intact Urine pH Urine WBC (Auto) Urine Creatinine Urine Total Protein Fluid Total Protein Vancomycin Trough Rheumatoid Factor Complement C4 Miscellaneous Test Crossmatch 03/02/17 03/02/17 03/02/17 00:10 03:05 05:20 WBC RBC Hgb Hct MCV MCH MCHC RDW Plt Count Lymph % (Auto) [place] % (Auto) Lymph # [place] # Baso # Seg Neutrophils % Seg Neuts % (Manual) Lymphocytes % (Manual) Monocytes % (Manual) Eosinophils % (Manual) Basophils % (Manual) Nucleated RBC % Seg Neutrophils # Seg Neutrophils # Man Lymphocytes # (Manual) Monocytes # (Manual) Eosinophils # (Manual) Basophils # (Manual) PT INR Fibrinogen dRVVT Confirm Interp Factor V Activity POC ABG pH POC ABG pCO2 POC ABG pO2 ABG pO2 ABG HCO3 ABG Base Excess ABG Hemoglobin Oxyhemoglobin Sodium Potassium 3.0 L Chloride Carbon Dioxide BUN 41 H Creatinine 1.6 H Glucose 130 H POC Glucose 129 H 173 H Lactic Acid Calcium Ionized Calcium Phosphorus 1.70 L D Magnesium 1.40 L Direct Bilirubin AST ALT Alkaline Phosphatase Lactate Dehydrogenase Troponin T C-Reactive Protein Total Protein Albumin Prealbumin Triglycerides Cholesterol LDL Cholesterol Direct HDL Cholesterol 25-OH Vitamin D Total PTH Intact Urine pH Urine WBC (Auto) Urine Creatinine Urine Total Protein Fluid Total Protein Vancomycin Trough Rheumatoid Factor Complement C4 Miscellaneous Test Crossmatch 03/02/17 03/02/17 03/02/17 11:49 16:38 23:46 WBC RBC Hgb Hct MCV MCH MCHC RDW Plt Count Lymph % (Auto) [place] % (Auto) Lymph # [place] # Baso # Seg Neutrophils % Seg Neuts % (Manual) Lymphocytes % (Manual) Monocytes % (Manual) Eosinophils % (Manual) Basophils % (Manual) Nucleated RBC % Seg Neutrophils # Seg Neutrophils # Man Lymphocytes # (Manual) Monocytes # (Manual) Eosinophils # (Manual) Basophils # (Manual) PT INR Fibrinogen dRVVT Confirm Interp Factor V Activity POC ABG pH POC ABG pCO2 POC ABG pO2 ABG pO2 ABG HCO3 ABG Base Excess ABG Hemoglobin Oxyhemoglobin Sodium Potassium Chloride Carbon Dioxide BUN Creatinine Glucose POC Glucose 129 H 141 H 119 H Lactic Acid Calcium Ionized Calcium Phosphorus Magnesium Direct Bilirubin AST ALT Alkaline Phosphatase Lactate Dehydrogenase Troponin T C-Reactive Protein Total Protein Albumin Prealbumin Triglycerides Cholesterol LDL Cholesterol Direct HDL Cholesterol 25-OH Vitamin D Total PTH Intact Urine pH Urine WBC (Auto) Urine Creatinine Urine Total Protein Fluid Total Protein Vancomycin Trough Rheumatoid Factor Complement C4 Miscellaneous Test Crossmatch 03/03/17 03/03/17 03/03/17 04:00 11:59 18:08 WBC RBC Hgb Hct MCV MCH MCHC RDW Plt Count Lymph % (Auto) [place] % (Auto) Lymph # [place] # Baso # Seg Neutrophils % Seg Neuts % (Manual) Lymphocytes % (Manual) Monocytes % (Manual) Eosinophils % (Manual) Basophils % (Manual) Nucleated RBC % Seg Neutrophils # Seg Neutrophils # Man Lymphocytes # (Manual) Monocytes # (Manual) Eosinophils # (Manual) Basophils # (Manual) PT INR Fibrinogen dRVVT Confirm Interp Factor V Activity POC ABG pH POC ABG pCO2 POC ABG pO2 ABG pO2 ABG HCO3 ABG Base Excess ABG Hemoglobin Oxyhemoglobin Sodium Potassium Chloride Carbon Dioxide BUN 70 H Creatinine 2.3 H Glucose POC Glucose 125 H 131 H Lactic Acid Calcium Ionized Calcium Phosphorus Magnesium Direct Bilirubin AST ALT Alkaline Phosphatase Lactate Dehydrogenase Troponin T C-Reactive Protein Total Protein Albumin Prealbumin Triglycerides Cholesterol LDL Cholesterol Direct HDL Cholesterol 25-OH Vitamin D Total PTH Intact Urine pH Urine WBC (Auto) Urine Creatinine Urine Total Protein Fluid Total Protein Vancomycin Trough Rheumatoid Factor Complement C4 Miscellaneous Test Crossmatch 03/03/17 03/03/17 03/04/17 20:17 23:43 05:21 WBC RBC Hgb Hct MCV MCH MCHC RDW Plt Count Lymph % (Auto) [place] % (Auto) Lymph # [place] # Baso # Seg Neutrophils % Seg Neuts % (Manual) Lymphocytes % (Manual) Monocytes % (Manual) Eosinophils % (Manual) Basophils % (Manual) Nucleated RBC % Seg Neutrophils # Seg Neutrophils # Man Lymphocytes # (Manual) Monocytes # (Manual) Eosinophils # (Manual) Basophils # (Manual) PT INR Fibrinogen dRVVT Confirm Interp Factor V Activity POC ABG pH 7.518 H POC ABG pCO2 28.8 L POC ABG pO2 61 L ABG pO2 ABG HCO3 ABG Base Excess ABG Hemoglobin Oxyhemoglobin Sodium Potassium Chloride Carbon Dioxide BUN Creatinine Glucose POC Glucose 122 H 130 H Lactic Acid Calcium Ionized Calcium Phosphorus Magnesium Direct Bilirubin AST ALT Alkaline Phosphatase Lactate Dehydrogenase Troponin T C-Reactive Protein Total Protein Albumin Prealbumin Triglycerides Cholesterol LDL Cholesterol Direct HDL Cholesterol 25-OH Vitamin D Total PTH Intact Urine pH Urine WBC (Auto) Urine Creatinine Urine Total Protein Fluid Total Protein Vancomycin Trough Rheumatoid Factor Complement C4 Miscellaneous Test Crossmatch 03/04/17 03/05/17 03/06/17 06:10 06:15 03:52 WBC RBC Hgb Hct MCV MCH MCHC RDW Plt Count Lymph % (Auto) [place] % (Auto) Lymph # [place] # Baso # Seg Neutrophils % Seg Neuts % (Manual) Lymphocytes % (Manual) Monocytes % (Manual) Eosinophils % (Manual) Basophils % (Manual) Nucleated RBC % Seg Neutrophils # Seg Neutrophils # Man Lymphocytes # (Manual) Monocytes # (Manual) Eosinophils # (Manual) Basophils # (Manual) PT INR Fibrinogen dRVVT Confirm Interp Factor V Activity POC ABG pH POC ABG pCO2 POC ABG pO2 ABG pO2 ABG HCO3 ABG Base Excess ABG Hemoglobin Oxyhemoglobin Sodium 135 L 136 L Potassium 5.2 H 5.9 H Chloride 95.8 L 97.7 L 96.0 L Carbon Dioxide 21 L 21 L BUN 40 H 56 H 70 H Creatinine 1.7 H 2.4 H 3.0 H Glucose 118 H POC Glucose Lactic Acid Calcium Ionized Calcium Phosphorus 4.80 H D 6.00 H D Magnesium 2.60 H Direct Bilirubin AST ALT Alkaline Phosphatase 165 H Lactate Dehydrogenase Troponin T C-Reactive Protein Total Protein Albumin 1.5 L Prealbumin Triglycerides Cholesterol LDL Cholesterol Direct HDL Cholesterol 25-OH Vitamin D Total PTH Intact Urine pH Urine WBC (Auto) Urine Creatinine Urine Total Protein Fluid Total Protein Vancomycin Trough Rheumatoid Factor Complement C4 Miscellaneous Test Crossmatch 03/06/17 03/06/17 03/06/17 11:19 18:40 23:39 WBC RBC Hgb Hct MCV MCH MCHC RDW Plt Count Lymph % (Auto) [place] % (Auto) Lymph # [place] # Baso # Seg Neutrophils % Seg Neuts % (Manual) Lymphocytes % (Manual) Monocytes % (Manual) Eosinophils % (Manual) Basophils % (Manual) Nucleated RBC % Seg Neutrophils # Seg Neutrophils # Man Lymphocytes # (Manual) Monocytes # (Manual) Eosinophils # (Manual) Basophils # (Manual) PT INR Fibrinogen dRVVT Confirm Interp Factor V Activity POC ABG pH POC ABG pCO2 POC ABG pO2 ABG pO2 ABG HCO3 ABG Base Excess ABG Hemoglobin Oxyhemoglobin Sodium Potassium Chloride Carbon Dioxide BUN Creatinine Glucose POC Glucose 108 H 110 H 156 H Lactic Acid Calcium Ionized Calcium Phosphorus Magnesium Direct Bilirubin AST ALT Alkaline Phosphatase Lactate Dehydrogenase Troponin T C-Reactive Protein Total Protein Albumin Prealbumin Triglycerides Cholesterol LDL Cholesterol Direct HDL Cholesterol 25-OH Vitamin D Total PTH Intact Urine pH Urine WBC (Auto) Urine Creatinine Urine Total Protein Fluid Total Protein Vancomycin Trough Rheumatoid Factor Complement C4 Miscellaneous Test Crossmatch 03/07/17 03/07/17 03/07/17 06:04 11:56 23:31 WBC RBC Hgb Hct MCV MCH MCHC RDW Plt Count Lymph % (Auto) [place] % (Auto) Lymph # [place] # Baso # Seg Neutrophils % Seg Neuts % (Manual) Lymphocytes % (Manual) Monocytes % (Manual) Eosinophils % (Manual) Basophils % (Manual) Nucleated RBC % Seg Neutrophils # Seg Neutrophils # Man Lymphocytes # (Manual) Monocytes # (Manual) Eosinophils # (Manual) Basophils # (Manual) PT INR Fibrinogen dRVVT Confirm Interp Factor V Activity POC ABG pH POC ABG pCO2 POC ABG pO2 ABG pO2 ABG HCO3 ABG Base Excess ABG Hemoglobin Oxyhemoglobin Sodium Potassium Chloride 97.5 L Carbon Dioxide BUN 28 H Creatinine 1.5 H Glucose POC Glucose 106 H 131 H Lactic Acid Calcium 7.9 L Ionized Calcium Phosphorus Magnesium Direct Bilirubin AST ALT Alkaline Phosphatase Lactate Dehydrogenase Troponin T C-Reactive Protein Total Protein Albumin Prealbumin Triglycerides Cholesterol LDL Cholesterol Direct HDL Cholesterol 25-OH Vitamin D Total PTH Intact Urine pH Urine WBC (Auto) Urine Creatinine Urine Total Protein Fluid Total Protein Vancomycin Trough Rheumatoid Factor Complement C4 Miscellaneous Test Crossmatch 03/08/17 03/08/17 03/08/17 05:15 05:38 11:50 WBC RBC Hgb Hct MCV MCH MCHC RDW Plt Count Lymph % (Auto) [place] % (Auto) Lymph # [place] # Baso # Seg Neutrophils % Seg Neuts % (Manual) Lymphocytes % (Manual) Monocytes % (Manual) Eosinophils % (Manual) Basophils % (Manual) Nucleated RBC % Seg Neutrophils # Seg Neutrophils # Man Lymphocytes # (Manual) Monocytes # (Manual) Eosinophils # (Manual) Basophils # (Manual) PT INR Fibrinogen dRVVT Confirm Interp Factor V Activity POC ABG pH POC ABG pCO2 POC ABG pO2 ABG pO2 ABG HCO3 ABG Base Excess ABG Hemoglobin Oxyhemoglobin Sodium 135 L Potassium Chloride 96.6 L Carbon Dioxide 20 L BUN 46 H Creatinine 2.3 H D Glucose 117 H POC Glucose 156 H 131 H Lactic Acid Calcium Ionized Calcium Phosphorus Magnesium Direct Bilirubin AST ALT Alkaline Phosphatase Lactate Dehydrogenase Troponin T C-Reactive Protein Total Protein Albumin Prealbumin Triglycerides Cholesterol LDL Cholesterol Direct HDL Cholesterol 25-OH Vitamin D Total PTH Intact Urine pH Urine WBC (Auto) Urine Creatinine Urine Total Protein Fluid Total Protein Vancomycin Trough Rheumatoid Factor Complement C4 Miscellaneous Test Crossmatch 03/08/17 03/09/17 03/09/17 23:34 04:42 05:20 WBC RBC Hgb Hct MCV MCH MCHC RDW Plt Count Lymph % (Auto) [place] % (Auto) Lymph # [place] # Baso # Seg Neutrophils % Seg Neuts % (Manual) Lymphocytes % (Manual) Monocytes % (Manual) Eosinophils % (Manual) Basophils % (Manual) Nucleated RBC % Seg Neutrophils # Seg Neutrophils # Man Lymphocytes # (Manual) Monocytes # (Manual) Eosinophils # (Manual) Basophils # (Manual) PT INR Fibrinogen dRVVT Confirm Interp Factor V Activity POC ABG pH POC ABG pCO2 POC ABG pO2 ABG pO2 ABG HCO3 ABG Base Excess ABG Hemoglobin Oxyhemoglobin Sodium Potassium 3.2 L Chloride Carbon Dioxide BUN 30 H Creatinine 1.7 H Glucose 112 H POC Glucose 125 H 128 H Lactic Acid Calcium 8.2 L Ionized Calcium Phosphorus 1.80 L D Magnesium 1.40 L Direct Bilirubin AST ALT Alkaline Phosphatase Lactate Dehydrogenase Troponin T C-Reactive Protein Total Protein Albumin Prealbumin Triglycerides Cholesterol LDL Cholesterol Direct HDL Cholesterol 25-OH Vitamin D Total PTH Intact Urine pH Urine WBC (Auto) Urine Creatinine Urine Total Protein Fluid Total Protein Vancomycin Trough Rheumatoid Factor Complement C4 Miscellaneous Test Crossmatch 03/09/17 03/09/17 03/10/17 11:48 17:38 00:08 WBC RBC Hgb Hct MCV MCH MCHC RDW Plt Count Lymph % (Auto) [place] % (Auto) Lymph # [place] # Baso # Seg Neutrophils % Seg Neuts % (Manual) Lymphocytes % (Manual) Monocytes % (Manual) Eosinophils % (Manual) Basophils % (Manual) Nucleated RBC % Seg Neutrophils # Seg Neutrophils # Man Lymphocytes # (Manual) Monocytes # (Manual) Eosinophils # (Manual) Basophils # (Manual) PT INR Fibrinogen dRVVT Confirm Interp Factor V Activity POC ABG pH POC ABG pCO2 POC ABG pO2 ABG pO2 ABG HCO3 ABG Base Excess ABG Hemoglobin Oxyhemoglobin Sodium Potassium Chloride Carbon Dioxide BUN Creatinine Glucose POC Glucose 146 H 140 H 137 H Lactic Acid Calcium Ionized Calcium Phosphorus Magnesium Direct Bilirubin AST ALT Alkaline Phosphatase Lactate Dehydrogenase Troponin T C-Reactive Protein Total Protein Albumin Prealbumin Triglycerides Cholesterol LDL Cholesterol Direct HDL Cholesterol 25-OH Vitamin D Total PTH Intact Urine pH Urine WBC (Auto) Urine Creatinine Urine Total Protein Fluid Total Protein Vancomycin Trough Rheumatoid Factor Complement C4 Miscellaneous Test Crossmatch 03/10/17 03/10/17 03/10/17 04:46 06:37 11:22 WBC RBC Hgb Hct MCV MCH MCHC RDW Plt Count Lymph % (Auto) [place] % (Auto) Lymph # [place] # Baso # Seg Neutrophils % Seg Neuts % (Manual) Lymphocytes % (Manual) Monocytes % (Manual) Eosinophils % (Manual) Basophils % (Manual) Nucleated RBC % Seg Neutrophils # Seg Neutrophils # Man Lymphocytes # (Manual) Monocytes # (Manual) Eosinophils # (Manual) Basophils # (Manual) PT INR Fibrinogen dRVVT Confirm Interp Factor V Activity POC ABG pH POC ABG pCO2 POC ABG pO2 ABG pO2 ABG HCO3 ABG Base Excess ABG Hemoglobin Oxyhemoglobin Sodium 135 L Potassium Chloride 96.3 L Carbon Dioxide 21 L BUN 46 H Creatinine 2.2 H Glucose 106 H POC Glucose 115 H 151 H Lactic Acid Calcium 8.2 L Ionized Calcium Phosphorus Magnesium Direct Bilirubin AST ALT Alkaline Phosphatase Lactate Dehydrogenase Troponin T C-Reactive Protein Total Protein Albumin Prealbumin Triglycerides Cholesterol LDL Cholesterol Direct HDL Cholesterol 25-OH Vitamin D Total PTH Intact Urine pH Urine WBC (Auto) Urine Creatinine Urine Total Protein Fluid Total Protein Vancomycin Trough Rheumatoid Factor Complement C4 Miscellaneous Test Crossmatch 03/10/17 03/10/17 03/11/17 17:53 23:46 05:19 WBC RBC Hgb Hct MCV MCH MCHC RDW Plt Count Lymph % (Auto) [place] % (Auto) Lymph # [place] # Baso # Seg Neutrophils % Seg Neuts % (Manual) Lymphocytes % (Manual) Monocytes % (Manual) Eosinophils % (Manual) Basophils % (Manual) Nucleated RBC % Seg Neutrophils # Seg Neutrophils # Man Lymphocytes # (Manual) Monocytes # (Manual) Eosinophils # (Manual) Basophils # (Manual) PT INR Fibrinogen dRVVT Confirm Interp Factor V Activity POC ABG pH POC ABG pCO2 POC ABG pO2 ABG pO2 ABG HCO3 ABG Base Excess ABG Hemoglobin Oxyhemoglobin Sodium Potassium Chloride Carbon Dioxide BUN Creatinine Glucose POC Glucose 137 H 131 H 108 H Lactic Acid Calcium Ionized Calcium Phosphorus Magnesium Direct Bilirubin AST ALT Alkaline Phosphatase Lactate Dehydrogenase Troponin T C-Reactive Protein Total Protein Albumin Prealbumin Triglycerides Cholesterol LDL Cholesterol Direct HDL Cholesterol 25-OH Vitamin D Total PTH Intact Urine pH Urine WBC (Auto) Urine Creatinine Urine Total Protein Fluid Total Protein Vancomycin Trough Rheumatoid Factor Complement C4 Miscellaneous Test Crossmatch 03/11/17 03/11/17 03/11/17 11:37 18:13 23:55 WBC RBC Hgb Hct MCV MCH MCHC RDW Plt Count Lymph % (Auto) [place] % (Auto) Lymph # [place] # Baso # Seg Neutrophils % Seg Neuts % (Manual) Lymphocytes % (Manual) Monocytes % (Manual) Eosinophils % (Manual) Basophils % (Manual) Nucleated RBC % Seg Neutrophils # Seg Neutrophils # Man Lymphocytes # (Manual) Monocytes # (Manual) Eosinophils # (Manual) Basophils # (Manual) PT INR Fibrinogen dRVVT Confirm Interp Factor V Activity POC ABG pH POC ABG pCO2 POC ABG pO2 ABG pO2 ABG HCO3 ABG Base Excess ABG Hemoglobin Oxyhemoglobin Sodium Potassium Chloride Carbon Dioxide BUN Creatinine Glucose POC Glucose 113 H 126 H 134 H Lactic Acid Calcium Ionized Calcium Phosphorus Magnesium Direct Bilirubin AST ALT Alkaline Phosphatase Lactate Dehydrogenase Troponin T C-Reactive Protein Total Protein Albumin Prealbumin Triglycerides Cholesterol LDL Cholesterol Direct HDL Cholesterol 25-OH Vitamin D Total PTH Intact Urine pH Urine WBC (Auto) Urine Creatinine Urine Total Protein Fluid Total Protein Vancomycin Trough Rheumatoid Factor Complement C4 Miscellaneous Test Crossmatch 03/12/17 03/12/17 03/12/17 05:06 11:30 17:39 WBC RBC Hgb Hct MCV MCH MCHC RDW Plt Count Lymph % (Auto) [place] % (Auto) Lymph # [place] # Baso # Seg Neutrophils % Seg Neuts % (Manual) Lymphocytes % (Manual) Monocytes % (Manual) Eosinophils % (Manual) Basophils % (Manual) Nucleated RBC % Seg Neutrophils # Seg Neutrophils # Man Lymphocytes # (Manual) Monocytes # (Manual) Eosinophils # (Manual) Basophils # (Manual) PT INR Fibrinogen dRVVT Confirm Interp Factor V Activity POC ABG pH POC ABG pCO2 POC ABG pO2 ABG pO2 ABG HCO3 ABG Base Excess ABG Hemoglobin Oxyhemoglobin Sodium Potassium Chloride Carbon Dioxide BUN Creatinine Glucose POC Glucose 127 H 144 H 151 H Lactic Acid Calcium Ionized Calcium Phosphorus Magnesium Direct Bilirubin AST ALT Alkaline Phosphatase Lactate Dehydrogenase Troponin T C-Reactive Protein Total Protein Albumin Prealbumin Triglycerides Cholesterol LDL Cholesterol Direct HDL Cholesterol 25-OH Vitamin D Total PTH Intact Urine pH Urine WBC (Auto) Urine Creatinine Urine Total Protein Fluid Total Protein Vancomycin Trough Rheumatoid Factor Complement C4 Miscellaneous Test Crossmatch 03/13/17 03/13/17 03/13/17 05:01 05:39 11:29 WBC RBC Hgb Hct MCV MCH MCHC RDW Plt Count Lymph % (Auto) [place] % (Auto) Lymph # [place] # Baso # Seg Neutrophils % Seg Neuts % (Manual) Lymphocytes % (Manual) Monocytes % (Manual) Eosinophils % (Manual) Basophils % (Manual) Nucleated RBC % Seg Neutrophils # Seg Neutrophils # Man Lymphocytes # (Manual) Monocytes # (Manual) Eosinophils # (Manual) Basophils # (Manual) PT INR Fibrinogen dRVVT Confirm Interp Factor V Activity POC ABG pH POC ABG pCO2 POC ABG pO2 ABG pO2 ABG HCO3 ABG Base Excess ABG Hemoglobin Oxyhemoglobin Sodium 136 L Potassium 3.4 L Chloride 94.6 L Carbon Dioxide BUN 68 H Creatinine 2.9 H Glucose 105 H POC Glucose 123 H 128 H Lactic Acid Calcium Ionized Calcium Phosphorus Magnesium Direct Bilirubin AST ALT Alkaline Phosphatase Lactate Dehydrogenase Troponin T C-Reactive Protein Total Protein Albumin Prealbumin Triglycerides Cholesterol LDL Cholesterol Direct HDL Cholesterol 25-OH Vitamin D Total PTH Intact Urine pH Urine WBC (Auto) Urine Creatinine Urine Total Protein Fluid Total Protein Vancomycin Trough Rheumatoid Factor Complement C4 Miscellaneous Test Crossmatch 03/13/17 03/13/17 03/14/17 17:39 21:53 03:30 WBC RBC Hgb Hct MCV MCH MCHC RDW Plt Count Lymph % (Auto) [place] % (Auto) Lymph # [place] # Baso # Seg Neutrophils % Seg Neuts % (Manual) Lymphocytes % (Manual) Monocytes % (Manual) Eosinophils % (Manual) Basophils % (Manual) Nucleated RBC % Seg Neutrophils # Seg Neutrophils # Man Lymphocytes # (Manual) Monocytes # (Manual) Eosinophils # (Manual) Basophils # (Manual) PT INR Fibrinogen dRVVT Confirm Interp Factor V Activity POC ABG pH POC ABG pCO2 POC ABG pO2 ABG pO2 ABG HCO3 ABG Base Excess ABG Hemoglobin Oxyhemoglobin Sodium 133 L Potassium Chloride 95.7 L Carbon Dioxide 21 L BUN 37 H Creatinine 1.8 H Glucose 138 H POC Glucose 160 H 147 H Lactic Acid Calcium 8.1 L Ionized Calcium Phosphorus 2.10 L D Magnesium 1.60 L Direct Bilirubin AST ALT Alkaline Phosphatase Lactate Dehydrogenase Troponin T C-Reactive Protein Total Protein Albumin Prealbumin Triglycerides Cholesterol LDL Cholesterol Direct HDL Cholesterol 25-OH Vitamin D Total PTH Intact Urine pH Urine WBC (Auto) Urine Creatinine Urine Total Protein Fluid Total Protein Vancomycin Trough Rheumatoid Factor Complement C4 Miscellaneous Test Crossmatch 03/14/17 03/14/17 03/14/17 05:19 11:08 12:51 WBC RBC Hgb Hct MCV MCH MCHC RDW Plt Count Lymph % (Auto) [place] % (Auto) Lymph # [place] # Baso # Seg Neutrophils % Seg Neuts % (Manual) Lymphocytes % (Manual) Monocytes % (Manual) Eosinophils % (Manual) Basophils % (Manual) Nucleated RBC % Seg Neutrophils # Seg Neutrophils # Man Lymphocytes # (Manual) Monocytes # (Manual) Eosinophils # (Manual) Basophils # (Manual) PT INR Fibrinogen dRVVT Confirm Interp Factor V Activity POC ABG pH POC ABG pCO2 POC ABG pO2 ABG pO2 ABG HCO3 ABG Base Excess ABG Hemoglobin Oxyhemoglobin Sodium Potassium Chloride Carbon Dioxide BUN Creatinine Glucose POC Glucose 159 H 144 H Lactic Acid Calcium Ionized Calcium Phosphorus Magnesium Direct Bilirubin AST ALT Alkaline Phosphatase Lactate Dehydrogenase Troponin T C-Reactive Protein 19.50 H Total Protein Albumin Prealbumin Triglycerides Cholesterol LDL Cholesterol Direct HDL Cholesterol 25-OH Vitamin D Total PTH Intact Urine pH Urine WBC (Auto) Urine Creatinine Urine Total Protein Fluid Total Protein Vancomycin Trough Rheumatoid Factor Complement C4 Miscellaneous Test Crossmatch 03/14/17 03/14/17 03/14/17 14:30 16:50 16:55 WBC 17.6 H RBC 2.18 L Hgb 6.0 L Hct 19.8 L* MCV MCH MCHC RDW 19.9 H Plt Count Lymph % (Auto) [place] % (Auto) Lymph # [place] # Baso # Seg Neutrophils % Seg Neuts % (Manual) Lymphocytes % (Manual) 13.0 L Monocytes % (Manual) 15.0 H Eosinophils % (Manual) Basophils % (Manual) Nucleated RBC % Seg Neutrophils # Seg Neutrophils # Man 12.3 H Lymphocytes # (Manual) Monocytes # (Manual) 2.6 H Eosinophils # (Manual) Basophils # (Manual) PT INR Fibrinogen dRVVT Confirm Interp Factor V Activity POC ABG pH POC ABG pCO2 POC ABG pO2 ABG pO2 ABG HCO3 ABG Base Excess ABG Hemoglobin Oxyhemoglobin Sodium Potassium Chloride Carbon Dioxide BUN Creatinine Glucose POC Glucose 156 H Lactic Acid Calcium Ionized Calcium Phosphorus Magnesium Direct Bilirubin AST ALT Alkaline Phosphatase Lactate Dehydrogenase Troponin T C-Reactive Protein Total Protein Albumin Prealbumin Triglycerides Cholesterol LDL Cholesterol Direct HDL Cholesterol 25-OH Vitamin D Total PTH Intact Urine pH Urine WBC (Auto) Urine Creatinine Urine Total Protein Fluid Total Protein Vancomycin Trough Rheumatoid Factor Complement C4 Miscellaneous Test Crossmatch See Detail 03/14/17 03/15/17 03/15/17 23:31 05:03 05:03 WBC 15.2 H RBC 2.42 L Hgb 6.9 L Hct 22.2 L MCV MCH MCHC RDW 18.4 H Plt Count Lymph % (Auto) [place] % (Auto) Lymph # [place] # Baso # Seg Neutrophils % Seg Neuts % (Manual) Lymphocytes % (Manual) Monocytes % (Manual) Eosinophils % (Manual) Basophils % (Manual) Nucleated RBC % Seg Neutrophils # Seg Neutrophils # Man Lymphocytes # (Manual) Monocytes # (Manual) Eosinophils # (Manual) Basophils # (Manual) PT INR Fibrinogen dRVVT Confirm Interp Factor V Activity POC ABG pH POC ABG pCO2 POC ABG pO2 ABG pO2 ABG HCO3 ABG Base Excess ABG Hemoglobin Oxyhemoglobin Sodium Potassium 3.5 L Chloride Carbon Dioxide BUN 54 H Creatinine 2.6 H Glucose 127 H POC Glucose 176 H Lactic Acid Calcium Ionized Calcium Phosphorus Magnesium Direct Bilirubin AST ALT Alkaline Phosphatase Lactate Dehydrogenase Troponin T C-Reactive Protein Total Protein Albumin Prealbumin Triglycerides Cholesterol LDL Cholesterol Direct HDL Cholesterol 25-OH Vitamin D Total PTH Intact Urine pH Urine WBC (Auto) Urine Creatinine Urine Total Protein Fluid Total Protein Vancomycin Trough Rheumatoid Factor Complement C4 Miscellaneous Test Crossmatch 03/15/17 03/15/17 03/15/17 05:04 12:52 17:46 WBC RBC Hgb Hct MCV MCH MCHC RDW Plt Count Lymph % (Auto) [place] % (Auto) Lymph # [place] # Baso # Seg Neutrophils % Seg Neuts % (Manual) Lymphocytes % (Manual) Monocytes % (Manual) Eosinophils % (Manual) Basophils % (Manual) Nucleated RBC % Seg Neutrophils # Seg Neutrophils # Man Lymphocytes # (Manual) Monocytes # (Manual) Eosinophils # (Manual) Basophils # (Manual) PT INR Fibrinogen dRVVT Confirm Interp Factor V Activity POC ABG pH POC ABG pCO2 POC ABG pO2 ABG pO2 ABG HCO3 ABG Base Excess ABG Hemoglobin Oxyhemoglobin Sodium Potassium Chloride Carbon Dioxide BUN Creatinine Glucose POC Glucose 106 H 141 H 170 H Lactic Acid Calcium Ionized Calcium Phosphorus Magnesium Direct Bilirubin AST ALT Alkaline Phosphatase Lactate Dehydrogenase Troponin T C-Reactive Protein Total Protein Albumin Prealbumin Triglycerides Cholesterol LDL Cholesterol Direct HDL Cholesterol 25-OH Vitamin D Total PTH Intact Urine pH Urine WBC (Auto) Urine Creatinine Urine Total Protein Fluid Total Protein Vancomycin Trough Rheumatoid Factor Complement C4 Miscellaneous Test Crossmatch 03/16/17 03/16/17 03/16/17 00:16 03:35 05:15 WBC RBC Hgb Hct MCV MCH MCHC RDW Plt Count Lymph % (Auto) [place] % (Auto) Lymph # [place] # Baso # Seg Neutrophils % Seg Neuts % (Manual) Lymphocytes % (Manual) Monocytes % (Manual) Eosinophils % (Manual) Basophils % (Manual) Nucleated RBC % Seg Neutrophils # Seg Neutrophils # Man Lymphocytes # (Manual) Monocytes # (Manual) Eosinophils # (Manual) Basophils # (Manual) PT INR Fibrinogen dRVVT Confirm Interp Factor V Activity POC ABG pH POC ABG pCO2 POC ABG pO2 ABG pO2 ABG HCO3 ABG Base Excess ABG Hemoglobin Oxyhemoglobin Sodium Potassium 3.5 L Chloride Carbon Dioxide BUN 26 H Creatinine 1.3 H Glucose 129 H POC Glucose 120 H 140 H Lactic Acid Calcium 7.9 L Ionized Calcium Phosphorus 2.20 L D Magnesium Direct Bilirubin AST ALT Alkaline Phosphatase Lactate Dehydrogenase Troponin T C-Reactive Protein Total Protein Albumin Prealbumin Triglycerides Cholesterol LDL Cholesterol Direct HDL Cholesterol 25-OH Vitamin D Total PTH Intact Urine pH Urine WBC (Auto) Urine Creatinine Urine Total Protein Fluid Total Protein Vancomycin Trough Rheumatoid Factor Complement C4 Miscellaneous Test Crossmatch 03/16/17 03/16/17 03/17/17 12:26 18:16 00:00 WBC RBC Hgb Hct MCV MCH MCHC RDW Plt Count Lymph % (Auto) [place] % (Auto) Lymph # [place] # Baso # Seg Neutrophils % Seg Neuts % (Manual) Lymphocytes % (Manual) Monocytes % (Manual) Eosinophils % (Manual) Basophils % (Manual) Nucleated RBC % Seg Neutrophils # Seg Neutrophils # Man Lymphocytes # (Manual) Monocytes # (Manual) Eosinophils # (Manual) Basophils # (Manual) PT INR Fibrinogen dRVVT Confirm Interp Factor V Activity POC ABG pH POC ABG pCO2 POC ABG pO2 ABG pO2 ABG HCO3 ABG Base Excess ABG Hemoglobin Oxyhemoglobin Sodium Potassium Chloride Carbon Dioxide BUN Creatinine Glucose POC Glucose 133 H 107 H 124 H Lactic Acid Calcium Ionized Calcium Phosphorus Magnesium Direct Bilirubin AST ALT Alkaline Phosphatase Lactate Dehydrogenase Troponin T C-Reactive Protein Total Protein Albumin Prealbumin Triglycerides Cholesterol LDL Cholesterol Direct HDL Cholesterol 25-OH Vitamin D Total PTH Intact Urine pH Urine WBC (Auto) Urine Creatinine Urine Total Protein Fluid Total Protein Vancomycin Trough Rheumatoid Factor Complement C4 Miscellaneous Test Crossmatch 03/17/17 03/17/17 03/17/17 04:00 05:57 12:00 WBC RBC Hgb Hct MCV MCH MCHC RDW Plt Count Lymph % (Auto) [place] % (Auto) Lymph # [place] # Baso # Seg Neutrophils % Seg Neuts % (Manual) Lymphocytes % (Manual) Monocytes % (Manual) Eosinophils % (Manual) Basophils % (Manual) Nucleated RBC % Seg Neutrophils # Seg Neutrophils # Man Lymphocytes # (Manual) Monocytes # (Manual) Eosinophils # (Manual) Basophils # (Manual) PT INR Fibrinogen dRVVT Confirm Interp Factor V Activity POC ABG pH POC ABG pCO2 POC ABG pO2 ABG pO2 ABG HCO3 ABG Base Excess ABG Hemoglobin Oxyhemoglobin Sodium 134 L Potassium Chloride 95.1 L Carbon Dioxide BUN 37 H Creatinine 1.8 H Glucose 115 H POC Glucose 141 H 129 H Lactic Acid Calcium 8.3 L Ionized Calcium Phosphorus 5.50 H D Magnesium Direct Bilirubin AST ALT Alkaline Phosphatase Lactate Dehydrogenase Troponin T C-Reactive Protein Total Protein Albumin Prealbumin Triglycerides Cholesterol LDL Cholesterol Direct HDL Cholesterol 25-OH Vitamin D Total PTH Intact Urine pH Urine WBC (Auto) Urine Creatinine Urine Total Protein Fluid Total Protein Vancomycin Trough Rheumatoid Factor Complement C4 Miscellaneous Test Crossmatch 03/17/17 03/18/17 03/18/17 17:23 00:04 04:00 WBC RBC Hgb Hct MCV MCH MCHC RDW Plt Count Lymph % (Auto) [place] % (Auto) Lymph # [place] # Baso # Seg Neutrophils % Seg Neuts % (Manual) Lymphocytes % (Manual) Monocytes % (Manual) Eosinophils % (Manual) Basophils % (Manual) Nucleated RBC % Seg Neutrophils # Seg Neutrophils # Man Lymphocytes # (Manual) Monocytes # (Manual) Eosinophils # (Manual) Basophils # (Manual) PT INR Fibrinogen dRVVT Confirm Interp Factor V Activity POC ABG pH POC ABG pCO2 POC ABG pO2 ABG pO2 ABG HCO3 ABG Base Excess ABG Hemoglobin Oxyhemoglobin Sodium Potassium Chloride Carbon Dioxide BUN 23 H Creatinine 1.3 H Glucose 122 H POC Glucose 155 H 126 H Lactic Acid Calcium 8.3 L Ionized Calcium Phosphorus Magnesium Direct Bilirubin AST ALT Alkaline Phosphatase Lactate Dehydrogenase Troponin T C-Reactive Protein Total Protein Albumin Prealbumin Triglycerides Cholesterol LDL Cholesterol Direct HDL Cholesterol 25-OH Vitamin D Total PTH Intact Urine pH Urine WBC (Auto) Urine Creatinine Urine Total Protein Fluid Total Protein Vancomycin Trough Rheumatoid Factor Complement C4 Miscellaneous Test Crossmatch 03/18/17 03/18/17 03/18/17 05:47 11:15 18:07 WBC RBC Hgb Hct MCV MCH MCHC RDW Plt Count Lymph % (Auto) [place] % (Auto) Lymph # [place] # Baso # Seg Neutrophils % Seg Neuts % (Manual) Lymphocytes % (Manual) Monocytes % (Manual) Eosinophils % (Manual) Basophils % (Manual) Nucleated RBC % Seg Neutrophils # Seg Neutrophils # Man Lymphocytes # (Manual) Monocytes # (Manual) Eosinophils # (Manual) Basophils # (Manual) PT INR Fibrinogen dRVVT Confirm Interp Factor V Activity POC ABG pH POC ABG pCO2 POC ABG pO2 ABG pO2 ABG HCO3 ABG Base Excess ABG Hemoglobin Oxyhemoglobin Sodium Potassium Chloride Carbon Dioxide BUN Creatinine Glucose POC Glucose 139 H 138 H 134 H Lactic Acid Calcium Ionized Calcium Phosphorus Magnesium Direct Bilirubin AST ALT Alkaline Phosphatase Lactate Dehydrogenase Troponin T C-Reactive Protein Total Protein Albumin Prealbumin Triglycerides Cholesterol LDL Cholesterol Direct HDL Cholesterol 25-OH Vitamin D Total PTH Intact Urine pH Urine WBC (Auto) Urine Creatinine Urine Total Protein Fluid Total Protein Vancomycin Trough Rheumatoid Factor Complement C4 Miscellaneous Test Crossmatch 03/19/17 03/19/17 03/19/17 00:34 06:11 11:15 WBC RBC Hgb Hct MCV MCH MCHC RDW Plt Count Lymph % (Auto) [place] % (Auto) Lymph # [place] # Baso # Seg Neutrophils % Seg Neuts % (Manual) Lymphocytes % (Manual) Monocytes % (Manual) Eosinophils % (Manual) Basophils % (Manual) Nucleated RBC % Seg Neutrophils # Seg Neutrophils # Man Lymphocytes # (Manual) Monocytes # (Manual) Eosinophils # (Manual) Basophils # (Manual) PT INR Fibrinogen dRVVT Confirm Interp Factor V Activity POC ABG pH POC ABG pCO2 POC ABG pO2 ABG pO2 ABG HCO3 ABG Base Excess ABG Hemoglobin Oxyhemoglobin Sodium Potassium Chloride Carbon Dioxide BUN Creatinine Glucose POC Glucose 139 H 146 H 129 H Lactic Acid Calcium Ionized Calcium Phosphorus Magnesium Direct Bilirubin AST ALT Alkaline Phosphatase Lactate Dehydrogenase Troponin T C-Reactive Protein Total Protein Albumin Prealbumin Triglycerides Cholesterol LDL Cholesterol Direct HDL Cholesterol 25-OH Vitamin D Total PTH Intact Urine pH Urine WBC (Auto) Urine Creatinine Urine Total Protein Fluid Total Protein Vancomycin Trough Rheumatoid Factor Complement C4 Miscellaneous Test Crossmatch 03/19/17 03/19/17 03/19/17 17:28 23:23 Unknown WBC RBC Hgb Hct MCV MCH MCHC RDW Plt Count Lymph % (Auto) [place] % (Auto) Lymph # [place] # Baso # Seg Neutrophils % Seg Neuts % (Manual) Lymphocytes % (Manual) Monocytes % (Manual) Eosinophils % (Manual) Basophils % (Manual) Nucleated RBC % Seg Neutrophils # Seg Neutrophils # Man Lymphocytes # (Manual) Monocytes # (Manual) Eosinophils # (Manual) Basophils # (Manual) PT INR Fibrinogen dRVVT Confirm Interp Factor V Activity POC ABG pH POC ABG pCO2 POC ABG pO2 ABG pO2 ABG HCO3 ABG Base Excess ABG Hemoglobin Oxyhemoglobin Sodium Potassium Chloride 96.8 L Carbon Dioxide BUN 34 H Creatinine 1.9 H Glucose 138 H POC Glucose 142 H 144 H Lactic Acid Calcium Ionized Calcium Phosphorus 5.20 H D Magnesium Direct Bilirubin AST ALT Alkaline Phosphatase Lactate Dehydrogenase Troponin T C-Reactive Protein Total Protein Albumin Prealbumin Triglycerides Cholesterol LDL Cholesterol Direct HDL Cholesterol 25-OH Vitamin D Total PTH Intact Urine pH Urine WBC (Auto) Urine Creatinine Urine Total Protein Fluid Total Protein Vancomycin Trough Rheumatoid Factor Complement C4 Miscellaneous Test Crossmatch 03/20/17 03/20/17 03/20/17 13:55 16:00 23:38 WBC 13.8 H RBC 2.21 L Hgb 6.6 L Hct 21.2 L MCV MCH MCHC RDW 19.7 H Plt Count Lymph % (Auto) [place] % (Auto) Lymph # [place] # 1.0 H Baso # Seg Neutrophils % 72.0 H Seg Neuts % (Manual) Lymphocytes % (Manual) Monocytes % (Manual) Eosinophils % (Manual) Basophils % (Manual) Nucleated RBC % Seg Neutrophils # 9.9 H Seg Neutrophils # Man Lymphocytes # (Manual) Monocytes # (Manual) Eosinophils # (Manual) Basophils # (Manual) PT INR Fibrinogen dRVVT Confirm Interp Factor V Activity POC ABG pH POC ABG pCO2 POC ABG pO2 ABG pO2 ABG HCO3 ABG Base Excess ABG Hemoglobin Oxyhemoglobin Sodium Potassium Chloride Carbon Dioxide BUN Creatinine Glucose POC Glucose 163 H Lactic Acid Calcium Ionized Calcium Phosphorus Magnesium Direct Bilirubin AST ALT Alkaline Phosphatase Lactate Dehydrogenase Troponin T C-Reactive Protein Total Protein Albumin Prealbumin Triglycerides Cholesterol LDL Cholesterol Direct HDL Cholesterol 25-OH Vitamin D Total PTH Intact Urine pH Urine WBC (Auto) Urine Creatinine Urine Total Protein Fluid Total Protein Vancomycin Trough Rheumatoid Factor Complement C4 Miscellaneous Test Crossmatch See Detail 03/20/17 03/21/17 03/21/17 Unknown 04:57 05:20 WBC 15.3 H RBC 2.68 L Hgb 8.8 L Hct 24.6 L MCV MCH 33 H MCHC 36 H RDW 19.4 H Plt Count Lymph % (Auto) [place] % (Auto) Lymph # [place] # 1.1 H Baso # Seg Neutrophils % 76.8 H Seg Neuts % (Manual) Lymphocytes % (Manual) Monocytes % (Manual) Eosinophils % (Manual) Basophils % (Manual) Nucleated RBC % Seg Neutrophils # 11.7 H Seg Neutrophils # Man Lymphocytes # (Manual) Monocytes # (Manual) Eosinophils # (Manual) Basophils # (Manual) PT INR Fibrinogen dRVVT Confirm Interp Factor V Activity POC ABG pH POC ABG pCO2 POC ABG pO2 ABG pO2 ABG HCO3 ABG Base Excess ABG Hemoglobin Oxyhemoglobin Sodium Potassium Chloride 97.7 L Carbon Dioxide BUN 43 H Creatinine 2.2 H Glucose POC Glucose 111 H Lactic Acid Calcium Ionized Calcium Phosphorus 5.30 H Magnesium Direct Bilirubin AST ALT 6 L Alkaline Phosphatase Lactate Dehydrogenase Troponin T C-Reactive Protein Total Protein Albumin 0.9 L Prealbumin Triglycerides Cholesterol LDL Cholesterol Direct HDL Cholesterol 25-OH Vitamin D Total PTH Intact Urine pH Urine WBC (Auto) Urine Creatinine Urine Total Protein Fluid Total Protein Vancomycin Trough Rheumatoid Factor Complement C4 Miscellaneous Test Crossmatch 03/21/17 03/22/17 03/22/17 17:18 06:25 12:30 WBC RBC Hgb Hct MCV MCH MCHC RDW Plt Count Lymph % (Auto) [place] % (Auto) Lymph # [place] # Baso # Seg Neutrophils % Seg Neuts % (Manual) Lymphocytes % (Manual) Monocytes % (Manual) Eosinophils % (Manual) Basophils % (Manual) Nucleated RBC % Seg Neutrophils # Seg Neutrophils # Man Lymphocytes # (Manual) Monocytes # (Manual) Eosinophils # (Manual) Basophils # (Manual) PT INR Fibrinogen dRVVT Confirm Interp Factor V Activity POC ABG pH POC ABG pCO2 POC ABG pO2 ABG pO2 ABG HCO3 ABG Base Excess ABG Hemoglobin Oxyhemoglobin Sodium 136 L Potassium Chloride 97.7 L Carbon Dioxide BUN 31 H Creatinine 1.8 H Glucose 102 H POC Glucose 118 H 164 H Lactic Acid Calcium Ionized Calcium Phosphorus Magnesium Direct Bilirubin AST ALT Alkaline Phosphatase Lactate Dehydrogenase Troponin T C-Reactive Protein Total Protein Albumin Prealbumin Triglycerides Cholesterol LDL Cholesterol Direct HDL Cholesterol 25-OH Vitamin D Total PTH Intact Urine pH Urine WBC (Auto) Urine Creatinine Urine Total Protein Fluid Total Protein Vancomycin Trough Rheumatoid Factor Complement C4 Miscellaneous Test Crossmatch 03/23/17 03/23/17 03/23/17 05:30 05:30 11:18 WBC RBC 2.50 L Hgb 8.0 L Hct 24.1 L MCV MCH MCHC RDW 22.2 H Plt Count Lymph % (Auto) [place] % (Auto) Lymph # [place] # Baso # Seg Neutrophils % 72.3 H Seg Neuts % (Manual) Lymphocytes % (Manual) Monocytes % (Manual) Eosinophils % (Manual) Basophils % (Manual) Nucleated RBC % Seg Neutrophils # Seg Neutrophils # Man Lymphocytes # (Manual) Monocytes # (Manual) Eosinophils # (Manual) Basophils # (Manual) PT INR Fibrinogen dRVVT Confirm Interp Factor V Activity POC ABG pH POC ABG pCO2 POC ABG pO2 ABG pO2 ABG HCO3 ABG Base Excess ABG Hemoglobin Oxyhemoglobin Sodium 136 L Potassium Chloride Carbon Dioxide BUN Creatinine 1.4 H Glucose POC Glucose 111 H Lactic Acid Calcium 8.2 L Ionized Calcium Phosphorus 2.10 L D Magnesium 1.60 L Direct Bilirubin AST ALT Alkaline Phosphatase Lactate Dehydrogenase Troponin T C-Reactive Protein Total Protein Albumin Prealbumin Triglycerides Cholesterol LDL Cholesterol Direct HDL Cholesterol 25-OH Vitamin D Total PTH Intact Urine pH Urine WBC (Auto) Urine Creatinine Urine Total Protein Fluid Total Protein Vancomycin Trough Rheumatoid Factor Complement C4 Miscellaneous Test Crossmatch 03/24/17 03/24/17 03/24/17 05:50 11:18 17:43 WBC RBC Hgb Hct MCV MCH MCHC RDW Plt Count Lymph % (Auto) [place] % (Auto) Lymph # [place] # Baso # Seg Neutrophils % Seg Neuts % (Manual) Lymphocytes % (Manual) Monocytes % (Manual) Eosinophils % (Manual) Basophils % (Manual) Nucleated RBC % Seg Neutrophils # Seg Neutrophils # Man Lymphocytes # (Manual) Monocytes # (Manual) Eosinophils # (Manual) Basophils # (Manual) PT INR Fibrinogen dRVVT Confirm Interp Factor V Activity POC ABG pH POC ABG pCO2 POC ABG pO2 ABG pO2 ABG HCO3 ABG Base Excess ABG Hemoglobin Oxyhemoglobin Sodium Potassium Chloride Carbon Dioxide BUN 26 H Creatinine 1.9 H Glucose POC Glucose 133 H 135 H Lactic Acid Calcium Ionized Calcium Phosphorus Magnesium Direct Bilirubin AST ALT Alkaline Phosphatase Lactate Dehydrogenase Troponin T C-Reactive Protein Total Protein Albumin Prealbumin Triglycerides Cholesterol LDL Cholesterol Direct HDL Cholesterol 25-OH Vitamin D Total PTH Intact Urine pH Urine WBC (Auto) Urine Creatinine Urine Total Protein Fluid Total Protein Vancomycin Trough Rheumatoid Factor Complement C4 Miscellaneous Test Crossmatch 03/25/17 03/25/17 03/25/17 05:15 05:19 17:38 WBC RBC Hgb Hct MCV MCH MCHC RDW Plt Count Lymph % (Auto) [place] % (Auto) Lymph # [place] # Baso # Seg Neutrophils % Seg Neuts % (Manual) Lymphocytes % (Manual) Monocytes % (Manual) Eosinophils % (Manual) Basophils % (Manual) Nucleated RBC % Seg Neutrophils # Seg Neutrophils # Man Lymphocytes # (Manual) Monocytes # (Manual) Eosinophils # (Manual) Basophils # (Manual) PT INR Fibrinogen dRVVT Confirm Interp Factor V Activity POC ABG pH POC ABG pCO2 POC ABG pO2 ABG pO2 ABG HCO3 ABG Base Excess ABG Hemoglobin Oxyhemoglobin Sodium Potassium Chloride Carbon Dioxide BUN Creatinine 1.3 H Glucose POC Glucose 110 H 109 H Lactic Acid Calcium Ionized Calcium Phosphorus Magnesium Direct Bilirubin AST ALT Alkaline Phosphatase Lactate Dehydrogenase Troponin T C-Reactive Protein Total Protein Albumin Prealbumin Triglycerides Cholesterol LDL Cholesterol Direct HDL Cholesterol 25-OH Vitamin D Total PTH Intact Urine pH Urine WBC (Auto) Urine Creatinine Urine Total Protein Fluid Total Protein Vancomycin Trough Rheumatoid Factor Complement C4 Miscellaneous Test Crossmatch 03/25/17 03/26/17 03/26/17 23:57 09:35 12:18 WBC RBC Hgb Hct MCV MCH MCHC RDW Plt Count Lymph % (Auto) [place] % (Auto) Lymph # [place] # Baso # Seg Neutrophils % Seg Neuts % (Manual) Lymphocytes % (Manual) Monocytes % (Manual) Eosinophils % (Manual) Basophils % (Manual) Nucleated RBC % Seg Neutrophils # Seg Neutrophils # Man Lymphocytes # (Manual) Monocytes # (Manual) Eosinophils # (Manual) Basophils # (Manual) PT INR Fibrinogen dRVVT Confirm Interp Factor V Activity POC ABG pH POC ABG pCO2 POC ABG pO2 ABG pO2 ABG HCO3 ABG Base Excess ABG Hemoglobin Oxyhemoglobin Sodium Potassium Chloride Carbon Dioxide BUN 25 H Creatinine 2.0 H D Glucose POC Glucose 107 H 106 H Lactic Acid Calcium Ionized Calcium Phosphorus 4.60 H D Magnesium 2.40 H Direct Bilirubin AST ALT Alkaline Phosphatase Lactate Dehydrogenase Troponin T C-Reactive Protein Total Protein Albumin Prealbumin Triglycerides Cholesterol LDL Cholesterol Direct HDL Cholesterol 25-OH Vitamin D Total PTH Intact Urine pH Urine WBC (Auto) Urine Creatinine Urine Total Protein Fluid Total Protein Vancomycin Trough Rheumatoid Factor Complement C4 Miscellaneous Test Crossmatch 03/27/17 03/27/17 03/27/17 05:30 05:30 18:01 WBC RBC 2.95 L Hgb 8.9 L Hct 28.7 L MCV MCH MCHC RDW 24.4 H Plt Count Lymph % (Auto) [place] % (Auto) 8.6 H Lymph # [place] # Baso # Seg Neutrophils % Seg Neuts % (Manual) Lymphocytes % (Manual) Monocytes % (Manual) Eosinophils % (Manual) Basophils % (Manual) Nucleated RBC % Seg Neutrophils # Seg Neutrophils # Man Lymphocytes # (Manual) Monocytes # (Manual) Eosinophils # (Manual) Basophils # (Manual) PT INR Fibrinogen dRVVT Confirm Interp Factor V Activity POC ABG pH POC ABG pCO2 POC ABG pO2 ABG pO2 ABG HCO3 ABG Base Excess ABG Hemoglobin Oxyhemoglobin Sodium Potassium Chloride 96.9 L Carbon Dioxide BUN 29 H Creatinine 2.5 H Glucose 102 H POC Glucose 162 H Lactic Acid Calcium Ionized Calcium Phosphorus 5.30 H Magnesium 2.60 H Direct Bilirubin AST ALT Alkaline Phosphatase Lactate Dehydrogenase Troponin T C-Reactive Protein Total Protein Albumin Prealbumin Triglycerides Cholesterol LDL Cholesterol Direct HDL Cholesterol 25-OH Vitamin D Total PTH Intact Urine pH Urine WBC (Auto) Urine Creatinine Urine Total Protein Fluid Total Protein Vancomycin Trough Rheumatoid Factor Complement C4 Miscellaneous Test Crossmatch 03/28/17 03/28/17 03/29/17 00:03 05:46 04:30 WBC RBC Hgb Hct MCV MCH MCHC RDW Plt Count Lymph % (Auto) [place] % (Auto) Lymph # [place] # Baso # Seg Neutrophils % Seg Neuts % (Manual) Lymphocytes % (Manual) Monocytes % (Manual) Eosinophils % (Manual) Basophils % (Manual) Nucleated RBC % Seg Neutrophils # Seg Neutrophils # Man Lymphocytes # (Manual) Monocytes # (Manual) Eosinophils # (Manual) Basophils # (Manual) PT INR Fibrinogen dRVVT Confirm Interp Factor V Activity POC ABG pH POC ABG pCO2 POC ABG pO2 ABG pO2 ABG HCO3 ABG Base Excess ABG Hemoglobin Oxyhemoglobin Sodium Potassium Chloride 97.5 L Carbon Dioxide BUN 27 H Creatinine 2.4 H Glucose POC Glucose 118 H 116 H Lactic Acid Calcium Ionized Calcium Phosphorus Magnesium Direct Bilirubin AST ALT Alkaline Phosphatase Lactate Dehydrogenase Troponin T C-Reactive Protein Total Protein Albumin Prealbumin Triglycerides Cholesterol LDL Cholesterol Direct HDL Cholesterol 25-OH Vitamin D Total PTH Intact Urine pH Urine WBC (Auto) Urine Creatinine Urine Total Protein Fluid Total Protein Vancomycin Trough Rheumatoid Factor Complement C4 Miscellaneous Test Crossmatch 03/31/17 04/01/17 04/01/17 06:00 00:12 07:15 WBC RBC Hgb Hct MCV MCH MCHC RDW Plt Count Lymph % (Auto) [place] % (Auto) Lymph # [place] # Baso # Seg Neutrophils % Seg Neuts % (Manual) Lymphocytes % (Manual) Monocytes % (Manual) Eosinophils % (Manual) Basophils % (Manual) Nucleated RBC % Seg Neutrophils # Seg Neutrophils # Man Lymphocytes # (Manual) Monocytes # (Manual) Eosinophils # (Manual) Basophils # (Manual) PT INR Fibrinogen dRVVT Confirm Interp Factor V Activity POC ABG pH POC ABG pCO2 POC ABG pO2 ABG pO2 ABG HCO3 ABG Base Excess ABG Hemoglobin Oxyhemoglobin Sodium Potassium Chloride 97.1 L Carbon Dioxide BUN 44 H 28 H Creatinine 3.2 H 2.4 H Glucose 101 H POC Glucose 113 H Lactic Acid Calcium Ionized Calcium Phosphorus 5.90 H Magnesium 2.50 H Direct Bilirubin AST ALT Alkaline Phosphatase Lactate Dehydrogenase Troponin T C-Reactive Protein Total Protein Albumin Prealbumin Triglycerides Cholesterol LDL Cholesterol Direct HDL Cholesterol 25-OH Vitamin D Total PTH Intact Urine pH Urine WBC (Auto) Urine Creatinine Urine Total Protein Fluid Total Protein Vancomycin Trough Rheumatoid Factor Complement C4 Miscellaneous Test Crossmatch 04/03/17 04/03/17 04/03/17 04:00 05:37 11:40 WBC RBC 2.40 L Hgb 7.7 L Hct 24.1 L MCV 101 H MCH MCHC RDW 23.1 H Plt Count Lymph % (Auto) [place] % (Auto) Lymph # [place] # Baso # Seg Neutrophils % Seg Neuts % (Manual) Lymphocytes % (Manual) Monocytes % (Manual) Eosinophils % (Manual) Basophils % (Manual) Nucleated RBC % Seg Neutrophils # Seg Neutrophils # Man Lymphocytes # (Manual) Monocytes # (Manual) Eosinophils # (Manual) Basophils # (Manual) PT INR Fibrinogen dRVVT Confirm Interp Factor V Activity POC ABG pH POC ABG pCO2 POC ABG pO2 ABG pO2 ABG HCO3 ABG Base Excess ABG Hemoglobin Oxyhemoglobin Sodium 146 H Potassium Chloride Carbon Dioxide 32 H BUN 44 H Creatinine 3.3 H Glucose POC Glucose 113 H Lactic Acid Calcium Ionized Calcium Phosphorus 4.90 H Magnesium Direct Bilirubin AST ALT Alkaline Phosphatase Lactate Dehydrogenase Troponin T C-Reactive Protein Total Protein Albumin Prealbumin Triglycerides Cholesterol LDL Cholesterol Direct HDL Cholesterol 25-OH Vitamin D Total PTH Intact Urine pH Urine WBC (Auto) Urine Creatinine Urine Total Protein Fluid Total Protein Vancomycin Trough Rheumatoid Factor Complement C4 Miscellaneous Test Crossmatch 04/03/17 04/03/17 04/04/17 11:48 17:55 05:24 WBC RBC Hgb Hct MCV MCH MCHC RDW Plt Count Lymph % (Auto) [place] % (Auto) Lymph # [place] # Baso # Seg Neutrophils % Seg Neuts % (Manual) Lymphocytes % (Manual) Monocytes % (Manual) Eosinophils % (Manual) Basophils % (Manual) Nucleated RBC % Seg Neutrophils # Seg Neutrophils # Man Lymphocytes # (Manual) Monocytes # (Manual) Eosinophils # (Manual) Basophils # (Manual) PT INR Fibrinogen dRVVT Confirm Interp Factor V Activity POC ABG pH POC ABG pCO2 POC ABG pO2 ABG pO2 ABG HCO3 ABG Base Excess ABG Hemoglobin Oxyhemoglobin Sodium Potassium Chloride Carbon Dioxide BUN Creatinine Glucose POC Glucose 110 H 130 H 107 H Lactic Acid Calcium Ionized Calcium Phosphorus Magnesium Direct Bilirubin AST ALT Alkaline Phosphatase Lactate Dehydrogenase Troponin T C-Reactive Protein Total Protein Albumin Prealbumin Triglycerides Cholesterol LDL Cholesterol Direct HDL Cholesterol 25-OH Vitamin D Total PTH Intact Urine pH Urine WBC (Auto) Urine Creatinine Urine Total Protein Fluid Total Protein Vancomycin Trough Rheumatoid Factor Complement C4 Miscellaneous Test Crossmatch 04/04/17 04/04/17 07:20 07:20 WBC RBC Hgb Hct MCV MCH MCHC RDW Plt Count Lymph % (Auto) [place] % (Auto) Lymph # [place] # Baso # Seg Neutrophils % Seg Neuts % (Manual) Lymphocytes % (Manual) Monocytes % (Manual) Eosinophils % (Manual) Basophils % (Manual) Nucleated RBC % Seg Neutrophils # Seg Neutrophils # Man Lymphocytes # (Manual) Monocytes # (Manual) Eosinophils # (Manual) Basophils # (Manual) PT INR Fibrinogen dRVVT Confirm Interp Factor V Activity POC ABG pH POC ABG pCO2 POC ABG pO2 ABG pO2 ABG HCO3 ABG Base Excess ABG Hemoglobin Oxyhemoglobin Sodium Potassium 3.3 L Chloride Carbon Dioxide BUN 24 H Creatinine 2.1 H Glucose POC Glucose Lactic Acid Calcium Ionized Calcium Phosphorus 1.50 L D Magnesium 1.60 L Direct Bilirubin AST ALT Alkaline Phosphatase Lactate Dehydrogenase Troponin T C-Reactive Protein Total Protein Albumin 1.8 L Prealbumin Triglycerides Cholesterol LDL Cholesterol Direct HDL Cholesterol 25-OH Vitamin D Total PTH Intact Urine pH Urine WBC (Auto) Urine Creatinine Urine Total Protein Fluid Total Protein Vancomycin Trough Rheumatoid Factor Complement C4 Miscellaneous Test Crossmatch Allied health notes reviewed: nursing
[2017-04-04] MEDS ORDERED: TPN ADULT IV SCH (20:00)
[2017-04-05] MEDS: LOPRESSOR IV SCH ×4 (06:50→18:00)
[2017-04-05 06:51] LABS: Calcium 9.4 mg/dL (8.4-10.2)
[2017-04-05] MEDS: HumuLIN R SUB-Q SCH ×3 (06:52→18:15)
[2017-04-05] MEDS: DUONEB *Not for PRN Use IH SCH ×3 (07:27→19:24)
--- NOTE | 2017-04-05 09:22 | Progress Note ---
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 UF as tolerated. Patient's serum creatinine is noted to be low - due to wasting of muscle mass. Needs to be maintained on dialysis at this time. * hypercalcemia work up - likely due to immobilization * Abx management per ID * Adjust Ca bath with dialysis prn * Transfuse pRBC per primary team. Epogen TIW prn * Vent management per pulm/CCM * Pressors prn for MAP>65 * Dose medications for renal function Subjective Date of service: 04/05/17 Principal diagnosis: Acute resp failure on MVS; S/P Acute CVA; Acute Encephalopathy; JUANITA Interval history: new events from last pm noted Objective - Exam Narrative Exam: Gen. appearance: Patient lying in bed, no apparent distress, 4. restraints HEENT: Normocephalic, atraumatic, pupils equally round and reactive to light, extraocular movement intact, and no sclericterus,. No JVD or thyromegaly or nodule,neck supple, no carotid bruit ,mucous membranes moist, unable to examine oral cavity Heart: S1, S2, regular rate and rhythm Lungs: Clear to auscultation bilaterally, breathing comfortable Abdomen: Positive bowel sounds, nontender, nondistended, no organomegaly Extremity: No edema, cyanosis, clubbing Skin: No rash, nodules, warm, dry Neuro: Difficult to assess, facial droop, moves all 4 extremities - Vital Signs Vital signs: Vital Signs - 12hr 04/04/17 04/04/17 04/04/17 21:56 22:00 22:15 Temperature Pulse Rate 81 83 85 Pulse Rate [ Throughout] Respiratory 10 L 14 16 Rate Respiratory Rate [ Throughout] Blood Pressure 130/91 141/90 133/94 O2 Sat by Pulse 100 100 100 Oximetry 04/04/17 04/04/17 04/05/17 23:00 23:25 00:00 Temperature 96.2 F L Pulse Rate 87 87 86 Pulse Rate [ Throughout] Respiratory 16 14 15 Rate Respiratory Rate [ Throughout] Blood Pressure 139/93 148/93 103/52 O2 Sat by Pulse 100 100 94 Oximetry 04/05/17 04/05/17 04/05/17 01:00 02:00 03:00 Temperature Pulse Rate 86 88 86 Pulse Rate [ Throughout] Respiratory 14 14 12 Rate Respiratory Rate [ Throughout] Blood Pressure 138/92 142/95 147/90 O2 Sat by Pulse 100 100 100 Oximetry 04/05/17 04/05/17 04/05/17 04:00 06:50 07:27 Temperature 97.0 F L Pulse Rate 93 H 89 Pulse Rate [ 79 Throughout] Respiratory 17 Rate Respiratory 12 Rate [ Throughout] Blood Pressure 151/127 166/107 O2 Sat by Pulse 100 Oximetry 04/05/17 04/05/17 07:41 07:45 Temperature Pulse Rate 100 H Pulse Rate [ 81 Throughout] Respiratory 13 Rate Respiratory 12 Rate [ Throughout] Blood Pressure 166/107 O2 Sat by Pulse 100 Oximetry - Lab 04/03/17 11:40 04/05/17 04:45 Most recent lab results ABG pH 7.450 pH Units (7.350-7.450) 12/05/16 Unknown ABG pCO2 29.6 mm Hg 12/05/16 Unknown ABG pO2 75.2 mm Hg (80.0-90.0) L 12/05/16 Unknown ABG HCO3 20.1 mmol/L (20.0-26.0) 12/05/16 Unknown ABG O2 Saturation 96.8 % (95.0-99.0) 12/05/16 Unknown Calcium 9.4 mg/dL (8.4-10.2) 04/05/17 04:45 Phosphorus 4.80 mg/dL (2.5-4.5) H D 04/05/17 04:45 Magnesium 2.10 mg/dL (1.7-2.3) 04/05/17 04:45 Urine Creatinine 19.7 mg/dL (0.1-20.0) 11/12/16 10:18 Urine Sodium 36 mEq/L 09/16/16 19:19 Urine Total Protein 16 mg/dL (5-11.8) H 09/16/16 19:19
[2017-04-05] MEDS: HEPARIN SUB-Q SCH ×2 (09:27→22:28)
[2017-04-05] MEDS: PEPCID IV SCH (09:27)
[2017-04-05] MEDS: APRESOLINE IV PRN (09:28)
[2017-04-05] MEDS: ALBURX 25% (ALBUMIN) IV PRN (16:00)
[2017-04-05] MEDS: HEPARIN IV PRN (18:18)
--- NOTE | 2017-04-05 18:18 | Progress Note ---
Assessment and Plan Assessment and plan: 47-year-old female patient , large CVA , hypoxic encephalopathy , status post cardiac arrest , vegetative state , atrial fibrillation , sepsis , aspiration pneumonia , end- stage renal disease on hemodialysis , multiple sacral and lower extremity decubiti requiring debridement , severe protein calorie malnutrition peritonitis / perforation, multiple surgeries, DO NOT RESUSCITATE status,prolonged hospital stay and poor prognosis, --Hypotension; pressors as needed --Acute respiratory failure/status post tracheostomy/ventilator dependent/ continue current management --Aspiration pneumonia/managed with multiple antibiotics per ID currently on daptomycin and Zosyn --Status post cardiac arrest/anoxic encephalopathy/vegetative state --Large CVA with mass effect/anoxic brain injury --Perforated bowel/drainage of large fluid collection, continue supportive care --Peritonitis/gastric perforation/status post laparotomy/on TPN --A. fib with rapid ventricular rate/continue amiodarone as needed --Sepsis/recurrent enterococcal infection/currently off antibiotics --End-stage renal disease; on hemodialysis, nephrology following --Multiple sacral decubiti stage III to stage IV, post debridement, continue wound care --Severe protein calorie malnutrition; continue TPN, supportive care --DO NOT RESUSCITATE status, recommend hospice[family not willing] Very poor prognosis, family aware, recommend hospice, family not willing Unable to place in LTAC/SNF, Multiple social issues Possible family meeting very soon Continue current management History Interval history: Patient seen and examined medical records reviewed Patient's blood pressures are on the lower range No other new events reported by the nursing staff Remains unresponsive, tracheostomy on vent Vital signs reviewed Hospitalist Physical - Constitutional Vitals: Temp Pulse Resp BP Pulse Ox 97.4 F L 99 H 22 109/69 100 04/05/17 15:25 04/05/17 18:15 04/05/17 15:25 04/05/17 18:15 04/05/17 15:25 General appearance: Present: no acute distress, cachectic, other (spontaneous opening of eyes, unresponsive) - EENT Eyes: Present: PERRL, EOM intact - Respiratory Respiratory effort: normal Respiratory: bilateral: diminished, rhonchi, negative: rales, wheezing - Cardiovascular Rhythm: irregularly irregular Heart Sounds: Present: S1 & S2 - Extremities Extremities: abnormal (contracted) Extremity abnormal: edema - Abdominal General gastrointestinal: soft, non-tender, non-distended, hypoactive bowel sounds - Integumentary Integumentary: Present: clear, warm - Psychiatric Psychiatric: other (noncommunicative) - Neurologic Neurologic: other (noncommunicative) Results - Labs CBC & Chem 7: 04/03/17 11:40 04/05/17 04:45 Labs: Laboratory Last Values WBC 4.7 K/mm3 (4.5-11.0) 04/03/17 11:40 RBC 2.40 M/mm3 (3.65-5.03) L 04/03/17 11:40 Hgb 7.7 gm/dl (10.1-14.3) L 04/03/17 11:40 Hct 24.1 % (30.3-42.9) L 04/03/17 11:40 MCV 101 fl (79-97) H 04/03/17 11:40 MCH 32 pg (28-32) 04/03/17 11:40 MCHC 32 % (30-34) 04/03/17 11:40 RDW 23.1 % (13.2-15.2) H 04/03/17 11:40 Plt Count 251 K/mm3 (140-440) 04/03/17 11:40 Lymph % (Auto) 25.1 % (13.4-35.0) 03/27/17 05:30 [place] % (Auto) 8.6 % (0.0-7.3) H 03/27/17 05:30 Eos % (Auto) 3.9 % (0.0-4.3) 03/27/17 05:30 Baso % (Auto) 1.5 % (0.0-1.8) 03/27/17 05:30 Lymph # 1.4 K/mm3 (1.2-5.4) 03/27/17 05:30 [place] # 0.5 K/mm3 (0.0-0.8) 03/27/17 05:30 Eos # 0.2 K/mm3 (0.0-0.4) 03/27/17 05:30 Baso # 0.1 K/mm3 (0.0-0.1) 03/27/17 05:30 Add Manual Diff Complete 03/14/17 14:30 Total Counted 100 03/14/17 14:30 Seg Neutrophils % 60.9 % (40.0-70.0) 03/27/17 05:30 Seg Neuts % (Manual) 70.0 % (40.0-70.0) 03/14/17 14:30 Band Neutrophils % 0 % 03/14/17 14:30 Lymphocytes % (Manual) 13.0 % (13.4-35.0) L 03/14/17 14:30 Reactive Lymphs % (Man) 1.0 % 03/14/17 14:30 Monocytes % (Manual) 15.0 % (0.0-7.3) H 03/14/17 14:30 Eosinophils % (Manual) 1.0 % (0.0-4.3) 03/14/17 14:30 Basophils % (Manual) 0 % (0.0-1.8) 03/14/17 14:30 Metamyelocytes % 0 % 03/14/17 14:30 Myelocytes % 0 % 03/14/17 14:30 Promyelocytes % 0 % 03/14/17 14:30 Blast Cells % 0 % 03/14/17 14:30 Nucleated RBC % Not Reportable 03/14/17 14:30 Seg Neutrophils # 3.3 K/mm3 (1.8-7.7) 03/27/17 05:30 Seg Neutrophils # Man 12.3 K/mm3 (1.8-7.7) H 03/14/17 14:30 Band Neutrophils # 0.0 K/mm3 03/14/17 14:30 Lymphocytes # (Manual) 2.3 K/mm3 (1.2-5.4) 03/14/17 14:30 Abs React Lymphs (Man) 0.2 K/mm3 03/14/17 14:30 Monocytes # (Manual) 2.6 K/mm3 (0.0-0.8) H 03/14/17 14:30 Eosinophils # (Manual) 0.2 K/mm3 (0.0-0.4) 03/14/17 14:30 Basophils # (Manual) 0.0 K/mm3 (0.0-0.1) 03/14/17 14:30 Metamyelocytes # 0.0 K/mm3 03/14/17 14:30 Myelocytes # 0.0 K/mm3 03/14/17 14:30 Promyelocytes # 0.0 K/mm3 03/14/17 14:30 Blast Cells # 0.0 K/mm3 03/14/17 14:30 Pathologist Review 09/13/16 04:00 WBC Morphology Not Reportable 03/14/17 14:30 Hypersegmented Neuts Not Reportable 03/14/17 14:30 Hyposegmented Neuts Not Reportable 03/14/17 14:30 Hypogranular Neuts Not Reportable 03/14/17 14:30 Smudge Cells Not Reportable 03/14/17 14:30 Toxic Granulation Not Reportable 03/14/17 14:30 Toxic Vacuolation Not Reportable 03/14/17 14:30 Dohle Bodies Not Reportable 03/14/17 14:30 Pelger-Huet Anomaly Not Reportable 03/14/17 14:30 Jasmina Rods Not Reportable 03/14/17 14:30 Platelet Estimate Consistent w auto 03/14/17 14:30 Clumped Platelets Not Reportable 03/14/17 14:30 Plt Clumps, EDTA Not Reportable 03/14/17 14:30 Large Platelets Not Reportable 03/14/17 14:30 Giant Platelets Not Reportable 03/14/17 14:30 Platelet Satelliting Not Reportable 03/14/17 14:30 Plt Morphology Comment Not Reportable 03/14/17 14:30 RBC Morphology Not Reportable 03/14/17 14:30 Dimorphic RBCs Not Reportable 03/14/17 14:30 Polychromasia Not Reportable 03/14/17 14:30 Hypochromasia 2+ 03/14/17 14:30 Poikilocytosis Not Reportable 03/14/17 14:30 Anisocytosis 1+ 03/14/17 14:30 Microcytosis Not Reportable 03/14/17 14:30 Macrocytosis Not Reportable 03/14/17 14:30 Spherocytes Not Reportable 03/14/17 14:30 Pappenheimer Bodies Not Reportable 03/14/17 14:30 Sickle Cells Not Reportable 03/14/17 14:30 Target Cells Not Reportable 03/14/17 14:30 Tear Drop Cells Not Reportable 03/14/17 14:30 Ovalocytes Not Reportable 03/14/17 14:30 Stomatocytes 2+ 03/14/17 14:30 Helmet Cells Not Reportable 03/14/17 14:30 [place] Bodies Not Reportable 03/14/17 14:30 Hematite Rings Not Reportable 03/14/17 14:30 Chuck Cells Not Reportable 03/14/17 14:30 Bite Cells Not Reportable 03/14/17 14:30 Crenated Cell Not Reportable 03/14/17 14:30 Elliptocytes Not Reportable 03/14/17 14:30 Acanthocytes (Spur) Not Reportable 03/14/17 14:30 Rouleaux Not Reportable 03/14/17 14:30 Hemoglobin C Crystals Not Reportable 03/14/17 14:30 Schistocytes Not Reportable 03/14/17 14:30 Malaria parasites Not Reportable 03/14/17 14:30 ESR > 140.0 mm/Hr (0-20) 09/08/16 11:48 Jun Bodies Not Reportable 03/14/17 14:30 Hem Pathologist Commnt No 03/14/17 14:30 PT 15.4 Sec. (12.2-14.9) H 01/13/17 15:50 INR 1.16 (0.87-1.13) H 01/13/17 15:50 APTT 33.0 Sec. (24.2-36.6) 10/09/16 03:45 Thrombin Time 16.8 Sec. (15.1-19.6) 09/03/16 00:10 Fibrinogen 750 mg/dl (211-480) H 09/08/16 11:48 Lupus Anticoagulant see below 09/12/16 09:59 LA PTT Baseline See scanned report 09/12/16 09:59 dRVVT Confirm Interp Positive (Negative) H 09/12/16 09:59 dRVVT Screen 50:50 See scanned report 09/12/16 09:59 dRVVT Mix Interpret See scanned report 09/12/16 09:59 Protein C Antigen 122 % (70-140) 09/08/16 15:35 Free Protein S 97 % normal (50-147) 09/08/16 15:35 Total Protein S 109 % (70-140) 09/08/16 15:35 Antithrombin III Ag 100 % (80-120) 09/08/16 15:35 Heparin Anti-Xa, Unfract Negative (Negative) 09/29/16 13:35 Factor V Activity 182 % (65-150) H 09/08/16 15:35 POC ABG pH 7.518 (7.35-7.45) H 03/03/17 20:17 ABG pH 7.450 pH Units (7.350-7.450) 12/05/16 Unknown POC ABG pCO2 28.8 (35-45) L 03/03/17 20: ABG pCO2 29.6 mm Hg 12/05/16 Unknown POC ABG pO2 61 (80-105) L 03/03/17 20: ABG pO2 75.2 mm Hg (80.0-90.0) L 12/05/16 Unknown POC ABG HCO3 23.4 03/03/17 20: ABG HCO3 20.1 mmol/L (20.0-26.0) 12/05/16 Unknown POC ABG Total CO2 24 03/03/17 20:17 POC ABG O2 Sat 94 03/03/17 20: ABG O2 Saturation 96.8 % (95.0-99.0) 12/05/16 Unknown ABG O2 Content 9.9 (0.0-44) 12/05/16 Unknown POC ABG Base Excess 0 03/03/17 20: ABG Base Excess -3.4 mmol/L (-2.0-3.0) L 12/05/16 Unknown ABG Hemoglobin 7.4 gm/dl (12.0-16.0) L 12/05/16 Unknown ABG Carboxyhemoglobin 1.8 % (0.0-5.0) 12/05/16 Unknown ABG Methemoglobin 0.6 % (0.0-1.5) 12/05/16 Unknown Oxyhemoglobin 94.5 % (95.0-99.0) L 12/05/16 Unknown FiO2 40 % 03/03/17 20:17 Sodium 145 mmol/L (137-145) 04/05/17 04:45 Potassium 4.4 mmol/L (3.6-5.0) D 04/05/17 04:45 Chloride 104.7 mmol/L (98-107) 04/05/17 04:45 Carbon Dioxide 29 mmol/L (22-30) 04/05/17 04:45 Anion Gap 16 mmol/L 04/05/17 04:45 BUN 31 mg/dL (7-17) H 04/05/17 04:45 Creatinine 2.6 mg/dL (0.7-1.2) H 04/05/17 04:45 Estimated GFR 24 ml/min 04/05/17 04:45 BUN/Creatinine Ratio 12 % 04/05/17 04:45 Glucose 80 mg/dL (65-100) 04/05/17 04:45 POC Glucose 108 (70-105) H 04/05/17 11:55 Osmolality 351 Mosm/kg 09/16/16 11:47 Lactic Acid 2.30 mmol/L (0.7-2.0) H* 01/09/17 08:22 Calcium 9.4 mg/dL (8.4-10.2) 04/05/17 04:45 Ionized Calcium 6.0 mg/dL (4.8-5.6) H 02/15/17 19:08 Phosphorus 4.80 mg/dL (2.5-4.5) H D 04/05/17 04:45 Magnesium 2.10 mg/dL (1.7-2.3) 04/05/17 04:45 Total Bilirubin 0.50 mg/dL (0.1-1.2) 04/04/17 07:20 Direct Bilirubin 0.2 mg/dL (0-0.2) 01/28/17 04:00 Indirect Bilirubin 0.3 mg/dL 01/28/17 04:00 AST 15 units/L (5-40) 04/04/17 07:20 ALT 7 units/L (7-56) 04/04/17 07:20 Alkaline Phosphatase 122 units/L (35-129) 04/04/17 07:20 Ammonia 27.0 umol/L (25-60) 09/07/16 08:37 Lactate Dehydrogenase 170 units/L (91-180) 01/13/17 15:50 Total Creatine Kinase 121 units/L (30-135) 09/29/16 20:12 CK-MB (CK-2) < 1.0 ng/mL (0.0-4.0) 09/29/16 20:12 CK-MB (CK-2) Rel Index 0.8 (0-4) 09/29/16 20:12 Troponin T 0.204 ng/mL (0.00-0.029) H* 09/29/16 20:12 C-Reactive Protein 19.50 mg/dL (0.00-1.30) H 03/14/17 12:51 Total Protein 7.3 g/dL (6.3-8.2) 04/04/17 07:20 Albumin 1.8 g/dL (3.9-5) L 04/04/17 07:20 Albumin/Globulin Ratio 0.3 % 04/04/17 07:20 Prealbumin 0.110 g/L (0.200-0.400) L 12/29/16 05:15 Triglycerides 94 mg/dL (2-149) 03/20/17 Unknown Cholesterol 31 mg/dL (50-199) L 09/29/16 20:12 LDL Cholesterol Direct 4 mg/dL (50-130) L 09/29/16 20:12 HDL Cholesterol 3 mg/dL (40-59) L 09/29/16 20:12 Cholesterol/HDL Ratio 10.33 % 09/29/16 20:12 Angiotensin Convert Enz See scanned report 09/08/16 11:48 Renin 0.99 ng/mL/h (0.25-5.82) 10/07/16 10:56 Aldosterone <1 ng/dL () 10/07/16 10:56 Aldosterone/Renin Dir see below 10/07/16 10:56 Serotonin Release Assay See scanned report 09/29/16 13:35 25-OH Vitamin D Total 13 ng/mL (30-100) L 02/15/17 19:08 25-Hydroxy Vitamin D2 . 02/15/17 19:08 25-Hydroxy Vitamin D3 . 02/15/17 19:08 TSH 1.010 mlU/mL (0.270-4.200) 09/07/16 08:37 HCG, Qual Negative (Negative) 09/03/16 00:10 PTH Intact 10.88 pg/mL (15-65) L 02/15/17 19:08 Total Cortisol 18.2 mcg/dL () 02/02/17 20:09 Urine Color Yellow (Yellow) 11/05/16 13:09 Urine Turbidity Clear (Clear) 11/05/16 13:09 Urine pH 9.0 (5.0-7.0) H 11/05/16 13:09 Ur Specific [place] 1.011 (1.003-1.030) 11/05/16 13:09 Urine Protein 100 mg/dl mg/dL (Negative) 11/05/16 13:09 Urine Glucose (UA) Neg mg/dL (Negative) 11/05/16 13:09 Urine Ketones Neg mg/dL (Negative) 11/05/16 13:09 Urine Blood Neg (Negative) 11/05/16 13:09 Urine Nitrite Neg (Negative) 11/05/16 13:09 Urine Bilirubin Neg (Negative) 11/05/16 13:09 Urine Urobilinogen < 2.0 mg/dL (<2.0) 11/05/16 13:09 Ur Leukocyte Esterase Neg (Negative) 11/05/16 13:09 Urine WBC (Auto) 4.0 /HPF (0.0-6.0) 11/05/16 13:09 Urine RBC (Auto) 1.0 /HPF (0.0-6.0) 11/05/16 13:09 U Epithel Cells (Auto) 1.0 /HPF (0-13.0) 10/07/16 18:30 Urine Bacteria (Auto) 4+ /HPF (Negative) 11/05/16 13:09 Urine WBC Clumps 2+ /HPF 09/07/16 02:47 Hyaline Casts 4 /LPF 09/07/16 02:47 Urine Mucus Few /HPF 10/07/16 18:30 Urine Yeast (Budding) 3+ /HPF 10/07/16 18:30 Urine Eosinophils None seen (None Seen) 09/07/16 16:00 Urine Total Volume 950 11/12/16 10:18 Urine Creatinine 19.7 mg/dL (0.1-20.0) 11/12/16 10:18 Height (in) 65.0 inches 11/12/16 10:18 Weight (lb) 181.0 lbs 11/12/16 10:18 Creatinine Clearance 5 11/12/16 10:18 Urine Sodium 36 mEq/L 09/16/16 19:19 Urine Total Protein 16 mg/dL (5-11.8) H 09/16/16 19:19 Fluid Type Pleural 01/13/17 12:10 Fluid Color Yellow 01/13/17 12:10 Fluid Appearance Hazy 01/13/17 12:10 Fluid WBC 182 /mm3 01/13/17 12:10 Fluid RBC 41 /mm3 01/13/17 12:10 Fluid Seg Neutrophils 85.0 % 01/13/17 12:10 Fluid Lymphocytes 8.0 % 01/13/17 12:10 Fluid Reactive Lymphs 0 % 01/13/17 12:10 Fluid Monocytes 6.0 % 01/13/17 12:10 Fluid Eosinophils 1.0 % 01/13/17 12:10 Fluid Basophils 0 % 01/13/17 12:10 Fluid Total Protein 3.0 (15.0-45.0) L 01/13/17 12:10 Fluid LDH 1322 01/13/17 12:10 Fluid Comment Diff performed 01/13/17 12:10 Vancomycin Trough 2.3 ug/mL (5.0-20.0) L 09/21/16 13:00 Random Vancomycin 26.0 ug/mL (0-40.0) 03/13/17 05:39 Urine Opiates Screen Presumptive negative 09/03/16 15:11 Urine Methadone Screen Presumptive positive 09/03/16 15:11 Ur Barbiturates Screen Presumptive positive 09/03/16 15:11 Ur Phencyclidine Scrn Presumptive negative 09/03/16 15:11 Ur Amphetamines Screen Presumptive negative 09/03/16 15:11 U Benzodiazepines Scrn Presumptive negative 09/03/16 15:11 Urine Cocaine Screen Presumptive negative 09/03/16 15:11 U Marijuana (THC) Screen Presumptive positive 09/03/16 15:11 Drugs of Abuse Note Disclamer 09/03/16 15:11 Rheumatoid Factor 24 IU/ml (0-13) H 09/08/16 11:48 SAHIL Screen Negative (Negative) 09/07/16 09:20 Proteinase 3 (PR3) Ab <1.0 AI (<1.0) 09/07/16 09:20 Myeloperoxidase Ab <1.0 AI (<1.0) 09/07/16 09:20 Sjogren's Antibody <1.0 AI (<1.0) 09/08/16 15:35 Scl-70 Scleroderma Ab <1.0 AI (<1.0) 09/08/16 15:35 Centromere B Antibody <1.0 AI (<1.0) 09/08/16 12:02 Heparin-induced Plt Ab Negative (Negative) 09/29/16 13:35 UF Heparin High Dose 11 % Release 09/29/16 13:35 SUDHIR UFH Low Dose 0.1 6 % Release 09/29/16 13:35 SUDHIR UFH Low Dose 0.5 8 % Release 09/29/16 13:35 Cardiolipid IgG Ab <14 GPL (<=14) 09/12/16 09:59 Cardiolipid IgA Ab <11 APL (<=11) 09/12/16 09:59 Cardiolipid IgM Ab <12 MPL (<=12) 09/12/16 09:59 Complement C3 148 mg/dL (90-180) 09/07/16 09:20 Complement C4 58 mg/dL (16-47) H 09/07/16 09:20 RPR Nonreactive (Nonreactive) 09/08/16 11:48 Hepatitis A IgM Ab Non-reactive (NonReactive) 09/24/16 14:40 Hep Bs Antigen Non-reactive (Negative) 09/24/16 14:40 Hep B Core IgM Ab Non-reactive (NonReactive) 09/24/16 14:40 Hepatitis C Antibody Non-reactive (NonReactive) 09/24/16 14:40 HIV 1&2 Antibody Rapid Non react (Non React) 09/08/16 11:48 HIV P24 Antigen Non react (Non React) 09/08/16 11:48 Miscellaneous Test Flexitest 1 H 01/09/17 18:45 Blood Type A POSITIVE 03/20/17 16:00 Antibody Screen Negative 03/20/17 16:00 DELORIS Antibody Screen Negative 11/24/16 11:20 Crossmatch See Detail 03/20/17 16:00
[2017-04-05] MEDS ORDERED: TPN ADULT IV SCH (20:00)
[2017-04-05] MEDS ORDERED: INTRALIPID 20% 250 ML IV SCH (20:00)
[2017-04-05] MEDS: LEVOPHED DRIP 4 MG/NS 250 ML 4 MG/250 ML BAG IV SCH (21:15)
[2017-04-06] MEDS: LOPRESSOR IV SCH ×3 (06:42→18:35)
[2017-04-06 07:29] LABS: Calcium 9.3 mg/dL (8.4-10.2)
[2017-04-06] MEDS: DUONEB *Not for PRN Use IH SCH ×3 (09:00→19:16)
--- NOTE | 2017-04-06 10:09 | Progress Note ---
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 UF as tolerated. Patient's serum creatinine is noted to be low - due to wasting of muscle mass. Needs to be maintained on dialysis at this time. * hypercalcemia work up - likely due to immobilization * Abx management per ID * Adjust Ca bath with dialysis prn * Transfuse pRBC per primary team. Epogen TIW prn * Vent management per pulm/CCM * Pressors prn for MAP>65 * Dose medications for renal function Subjective Date of service: 04/06/17 Principal diagnosis: Acute resp failure on MVS; S/P Acute CVA; Acute Encephalopathy; JUANITA Interval history: new events from last pm noted Objective - Exam Narrative Exam: Gen. appearance: Patient lying in bed, no apparent distress, 4. restraints HEENT: Normocephalic, atraumatic, pupils equally round and reactive to light, extraocular movement intact, and no sclericterus,. No JVD or thyromegaly or nodule,neck supple, no carotid bruit ,mucous membranes moist, unable to examine oral cavity Heart: S1, S2, regular rate and rhythm Lungs: Clear to auscultation bilaterally, breathing comfortable Abdomen: Positive bowel sounds, nontender, nondistended, no organomegaly Extremity: No edema, cyanosis, clubbing Skin: No rash, nodules, warm, dry Neuro: Difficult to assess, facial droop, moves all 4 extremities - Vital Signs Vital signs: Vital Signs - 12hr 04/05/17 04/05/17 04/05/17 22:30 22:59 23:00 Temperature Pulse Rate 95 H 95 H 97 H Pulse Rate [ From Monitor] Respiratory 12 12 Rate Blood Pressure 139/80 126/78 126/81 O2 Sat by Pulse 100 100 100 Oximetry O2 Sat by Pulse 100 Oximetry [ Assessment] 04/05/17 04/06/17 04/06/17 23:30 00:00 00:30 Temperature 97.8 F Pulse Rate 97 H 92 H 100 H Pulse Rate [ From Monitor] Respiratory 15 15 12 Rate Blood Pressure 116/77 99/53 105/66 O2 Sat by Pulse 100 100 100 Oximetry O2 Sat by Pulse Oximetry [ Assessment] 04/06/17 04/06/17 04/06/17 01:00 01:30 02:00 Temperature Pulse Rate 96 H 100 H 98 H Pulse Rate [ From Monitor] Respiratory 15 12 16 Rate Blood Pressure 96/57 103/55 109/50 O2 Sat by Pulse 100 100 100 Oximetry O2 Sat by Pulse Oximetry [ Assessment] 04/06/17 04/06/17 04/06/17 02:30 03:00 03:30 Temperature Pulse Rate 101 H 101 H 97 H Pulse Rate [ From Monitor] Respiratory 15 10 L 12 Rate Blood Pressure 101/64 105/65 102/54 O2 Sat by Pulse 100 100 100 Oximetry O2 Sat by Pulse Oximetry [ Assessment] 04/06/17 04/06/17 04/06/17 03:38 03:57 04:00 Temperature 97.1 F L Pulse Rate 92 H 97 H Pulse Rate [ From Monitor] Respiratory 16 Rate Blood Pressure 101/64 90/58 O2 Sat by Pulse 100 100 Oximetry O2 Sat by Pulse Oximetry [ Assessment] 04/06/17 04/06/17 04/06/17 04:31 05:00 05:30 Temperature Pulse Rate 110 H 100 H 98 H Pulse Rate [ From Monitor] Respiratory 18 13 14 Rate Blood Pressure 150/111 116/86 107/80 O2 Sat by Pulse 100 100 100 Oximetry O2 Sat by Pulse Oximetry [ Assessment] 04/06/17 04/06/17 04/06/17 06:00 06:30 06:42 Temperature Pulse Rate 94 H 102 H 102 H Pulse Rate [ From Monitor] Respiratory 15 11 L Rate Blood Pressure 125/83 122/87 122/87 O2 Sat by Pulse 100 98 Oximetry O2 Sat by Pulse Oximetry [ Assessment] 04/06/17 04/06/17 04/06/17 07:00 07:30 08:00 Temperature 97.5 F L Pulse Rate 100 H 101 H 100 H Pulse Rate [ 94 H From Monitor] Respiratory 16 12 15 Rate Blood Pressure 126/89 142/95 103/56 O2 Sat by Pulse 100 100 100 Oximetry O2 Sat by Pulse Oximetry [ Assessment] 04/06/17 04/06/17 08:30 09:01 Temperature Pulse Rate 102 H 105 H Pulse Rate [ From Monitor] Respiratory 16 11 L Rate Blood Pressure 153/103 153/103 O2 Sat by Pulse 100 100 Oximetry O2 Sat by Pulse Oximetry [ Assessment] - Lab 04/03/17 11:40 04/06/17 06:54 Most recent lab results ABG pH 7.450 pH Units (7.350-7.450) 12/05/16 Unknown ABG pCO2 29.6 mm Hg 12/05/16 Unknown ABG pO2 75.2 mm Hg (80.0-90.0) L 12/05/16 Unknown ABG HCO3 20.1 mmol/L (20.0-26.0) 12/05/16 Unknown ABG O2 Saturation 96.8 % (95.0-99.0) 12/05/16 Unknown Calcium 9.3 mg/dL (8.4-10.2) 04/06/17 06:54 Phosphorus 2.80 mg/dL (2.5-4.5) D 04/06/17 06:54 Magnesium 1.70 mg/dL (1.7-2.3) 04/06/17 06:54 Urine Creatinine 19.7 mg/dL (0.1-20.0) 11/12/16 10:18 Urine Sodium 36 mEq/L 09/16/16 19:19 Urine Total Protein 16 mg/dL (5-11.8) H 09/16/16 19:19
[2017-04-06] MEDS: PEPCID IV SCH (11:17)
[2017-04-06] MEDS: HEPARIN SUB-Q SCH ×2 (11:17→22:56)
[2017-04-06] MEDS: HumuLIN R SUB-Q SCH ×4 (12:17→19:34)
[2017-04-06] MEDS ORDERED: TPN ADULT IV SCH (20:00)
--- NOTE | 2017-04-06 22:06 | Progress Note ---
Assessment and Plan Assessment and plan: 47-year-old female patient , large CVA , hypoxic encephalopathy , status post cardiac arrest , vegetative state , atrial fibrillation , sepsis , aspiration pneumonia , end- stage renal disease on hemodialysis , multiple sacral and lower extremity decubiti requiring debridement , severe protein calorie malnutrition peritonitis / perforation, multiple surgeries, DO NOT RESUSCITATE status,prolonged hospital stay and poor prognosis, --Hypotension; pressors as needed --Acute respiratory failure/status post tracheostomy/ventilator dependent/ continue current management --Aspiration pneumonia/managed with multiple antibiotics per ID currently on daptomycin and Zosyn --Status post cardiac arrest/anoxic encephalopathy/vegetative state --Large CVA with mass effect/anoxic brain injury --Perforated bowel/drainage of large fluid collection, continue supportive care --Peritonitis/gastric perforation/status post laparotomy/on TPN --A. fib with rapid ventricular rate/continue amiodarone as needed --Sepsis/recurrent enterococcal infection/currently off antibiotics --End-stage renal disease; on hemodialysis, nephrology following --Multiple sacral decubiti stage III to stage IV, post debridement, continue wound care --Severe protein calorie malnutrition; continue TPN, supportive care --DO NOT RESUSCITATE status, recommend hospice[family not willing] Very poor prognosis, family aware, recommend hospice, family not willing Unable to place in LTAC/SNF, Multiple social issues Possible family meeting very soon Continue current management History Interval history: Patient seen and evaluated medical records reviewed Clinically no change Patient remains vent dependent with tracheostomy unresponsive Vital signs reviewed Hospitalist Physical - Constitutional Vitals: Temp Pulse Resp BP Pulse Ox 98.0 F 102 H 12 108/73 100 04/06/17 20:00 04/06/17 19:26 04/06/17 19:26 04/06/17 19:14 04/06/17 19:14 General appearance: Present: no acute distress, cachectic, other (spontaneous opening of eyes, unresponsive) - EENT Eyes: Present: PERRL - Neck Neck: Present: supple - Respiratory Respiratory effort: normal Respiratory: bilateral: diminished, rhonchi - Cardiovascular Rhythm: irregularly irregular Heart Sounds: Present: S1 & S2 - Extremities Extremities: abnormal ( contracted) Extremity abnormal: edema - Abdominal General gastrointestinal: soft, non-tender, non-distended - Integumentary Integumentary: Present: clear, warm - Psychiatric Psychiatric: other (unresponsive) - Neurologic Neurologic: other (unresponsive) Results - Labs CBC & Chem 7: 04/03/17 11:40 04/06/17 06:54 Labs: Laboratory Last Values WBC 4.7 K/mm3 (4.5-11.0) 04/03/17 11:40 RBC 2.40 M/mm3 (3.65-5.03) L 04/03/17 11:40 Hgb 7.7 gm/dl (10.1-14.3) L 04/03/17 11:40 Hct 24.1 % (30.3-42.9) L 04/03/17 11:40 MCV 101 fl (79-97) H 04/03/17 11:40 MCH 32 pg (28-32) 04/03/17 11:40 MCHC 32 % (30-34) 04/03/17 11:40 RDW 23.1 % (13.2-15.2) H 04/03/17 11:40 Plt Count 251 K/mm3 (140-440) 04/03/17 11:40 Lymph % (Auto) 25.1 % (13.4-35.0) 03/27/17 05:30 [place] % (Auto) 8.6 % (0.0-7.3) H 03/27/17 05:30 Eos % (Auto) 3.9 % (0.0-4.3) 03/27/17 05:30 Baso % (Auto) 1.5 % (0.0-1.8) 03/27/17 05:30 Lymph # 1.4 K/mm3 (1.2-5.4) 03/27/17 05:30 [place] # 0.5 K/mm3 (0.0-0.8) 03/27/17 05:30 Eos # 0.2 K/mm3 (0.0-0.4) 03/27/17 05:30 Baso # 0.1 K/mm3 (0.0-0.1) 03/27/17 05:30 Add Manual Diff Complete 03/14/17 14:30 Total Counted 100 03/14/17 14:30 Seg Neutrophils % 60.9 % (40.0-70.0) 03/27/17 05:30 Seg Neuts % (Manual) 70.0 % (40.0-70.0) 03/14/17 14:30 Band Neutrophils % 0 % 03/14/17 14:30 Lymphocytes % (Manual) 13.0 % (13.4-35.0) L 03/14/17 14:30 Reactive Lymphs % (Man) 1.0 % 03/14/17 14:30 Monocytes % (Manual) 15.0 % (0.0-7.3) H 03/14/17 14:30 Eosinophils % (Manual) 1.0 % (0.0-4.3) 03/14/17 14:30 Basophils % (Manual) 0 % (0.0-1.8) 03/14/17 14:30 Metamyelocytes % 0 % 03/14/17 14:30 Myelocytes % 0 % 03/14/17 14:30 Promyelocytes % 0 % 03/14/17 14:30 Blast Cells % 0 % 03/14/17 14:30 Nucleated RBC % Not Reportable 03/14/17 14:30 Seg Neutrophils # 3.3 K/mm3 (1.8-7.7) 03/27/17 05:30 Seg Neutrophils # Man 12.3 K/mm3 (1.8-7.7) H 03/14/17 14:30 Band Neutrophils # 0.0 K/mm3 03/14/17 14:30 Lymphocytes # (Manual) 2.3 K/mm3 (1.2-5.4) 03/14/17 14:30 Abs React Lymphs (Man) 0.2 K/mm3 03/14/17 14:30 Monocytes # (Manual) 2.6 K/mm3 (0.0-0.8) H 03/14/17 14:30 Eosinophils # (Manual) 0.2 K/mm3 (0.0-0.4) 03/14/17 14:30 Basophils # (Manual) 0.0 K/mm3 (0.0-0.1) 03/14/17 14:30 Metamyelocytes # 0.0 K/mm3 03/14/17 14:30 Myelocytes # 0.0 K/mm3 03/14/17 14:30 Promyelocytes # 0.0 K/mm3 03/14/17 14:30 Blast Cells # 0.0 K/mm3 03/14/17 14:30 Pathologist Review 09/13/16 04:00 WBC Morphology Not Reportable 03/14/17 14:30 Hypersegmented Neuts Not Reportable 03/14/17 14:30 Hyposegmented Neuts Not Reportable 03/14/17 14:30 Hypogranular Neuts Not Reportable 03/14/17 14:30 Smudge Cells Not Reportable 03/14/17 14:30 Toxic Granulation Not Reportable 03/14/17 14:30 Toxic Vacuolation Not Reportable 03/14/17 14:30 Dohle Bodies Not Reportable 03/14/17 14:30 Pelger-Huet Anomaly Not Reportable 03/14/17 14:30 Jasmina Rods Not Reportable 03/14/17 14:30 Platelet Estimate Consistent w auto 03/14/17 14:30 Clumped Platelets Not Reportable 03/14/17 14:30 Plt Clumps, EDTA Not Reportable 03/14/17 14:30 Large Platelets Not Reportable 03/14/17 14:30 Giant Platelets Not Reportable 03/14/17 14:30 Platelet Satelliting Not Reportable 03/14/17 14:30 Plt Morphology Comment Not Reportable 03/14/17 14:30 RBC Morphology Not Reportable 03/14/17 14:30 Dimorphic RBCs Not Reportable 03/14/17 14:30 Polychromasia Not Reportable 03/14/17 14:30 Hypochromasia 2+ 03/14/17 14:30 Poikilocytosis Not Reportable 03/14/17 14:30 Anisocytosis 1+ 03/14/17 14:30 Microcytosis Not Reportable 03/14/17 14:30 Macrocytosis Not Reportable 03/14/17 14:30 Spherocytes Not Reportable 03/14/17 14:30 Pappenheimer Bodies Not Reportable 03/14/17 14:30 Sickle Cells Not Reportable 03/14/17 14:30 Target Cells Not Reportable 03/14/17 14:30 Tear Drop Cells Not Reportable 03/14/17 14:30 Ovalocytes Not Reportable 03/14/17 14:30 Stomatocytes 2+ 03/14/17 14:30 Helmet Cells Not Reportable 03/14/17 14:30 [place] Bodies Not Reportable 03/14/17 14:30 [place] Rings Not Reportable 03/14/17 14:30 Chuck Cells Not Reportable 03/14/17 14:30 Bite Cells Not Reportable 03/14/17 14:30 Crenated Cell Not Reportable 03/14/17 14:30 Elliptocytes Not Reportable 03/14/17 14:30 Acanthocytes (Spur) Not Reportable 03/14/17 14:30 Rouleaux Not Reportable 03/14/17 14:30 Hemoglobin C Crystals Not Reportable 03/14/17 14:30 Schistocytes Not Reportable 03/14/17 14:30 Malaria parasites Not Reportable 03/14/17 14:30 ESR > 140.0 mm/Hr (0-20) 09/08/16 11:48 Jun Bodies Not Reportable 03/14/17 14:30 Hem Pathologist Commnt No 03/14/17 14:30 PT 15.4 Sec. (12.2-14.9) H 01/13/17 15:50 INR 1.16 (0.87-1.13) H 01/13/17 15:50 APTT 33.0 Sec. (24.2-36.6) 10/09/16 03:45 Thrombin Time 16.8 Sec. (15.1-19.6) 09/03/16 00:10 Fibrinogen 750 mg/dl (211-480) H 09/08/16 11:48 Lupus Anticoagulant see below 09/12/16 09:59 LA PTT Baseline See scanned report 09/12/16 09:59 dRVVT Confirm Interp Positive (Negative) H 09/12/16 09:59 dRVVT Screen 50:50 See scanned report 09/12/16 09:59 dRVVT Mix Interpret See scanned report 09/12/16 09:59 Protein C Antigen 122 % (70-140) 09/08/16 15:35 Free Protein S 97 % normal (50-147) 09/08/16 15:35 Total Protein S 109 % (70-140) 09/08/16 15:35 Antithrombin III Ag 100 % (80-120) 09/08/16 15:35 Heparin Anti-Xa, Unfract Negative (Negative) 09/29/16 13:35 Factor V Activity 182 % (65-150) H 09/08/16 15:35 POC ABG pH 7.518 (7.35-7.45) H 03/03/17 20:17 ABG pH 7.450 pH Units (7.350-7.450) 12/05/16 Unknown POC ABG pCO2 28.8 (35-45) L 03/03/17 20: ABG pCO2 29.6 mm Hg 12/05/16 Unknown POC ABG pO2 61 (80-105) L 03/03/17 20: ABG pO2 75.2 mm Hg (80.0-90.0) L 12/05/16 Unknown POC ABG HCO3 23.4 03/03/17 20: ABG HCO3 20.1 mmol/L (20.0-26.0) 12/05/16 Unknown POC ABG Total CO2 24 03/03/17 20: POC ABG O2 Sat 94 03/03/17 20: ABG O2 Saturation 96.8 % (95.0-99.0) 12/05/16 Unknown ABG O2 Content 9.9 (0.0-44) 12/05/16 Unknown POC ABG Base Excess 0 03/03/17 20: ABG Base Excess -3.4 mmol/L (-2.0-3.0) L 12/05/16 Unknown ABG Hemoglobin 7.4 gm/dl (12.0-16.0) L 12/05/16 Unknown ABG Carboxyhemoglobin 1.8 % (0.0-5.0) 12/05/16 Unknown ABG Methemoglobin 0.6 % (0.0-1.5) 12/05/16 Unknown Oxyhemoglobin 94.5 % (95.0-99.0) L 12/05/16 Unknown FiO2 40 % 03/03/17 20:17 Sodium 143 mmol/L (137-145) 04/06/17 06:54 Potassium 4.3 mmol/L (3.6-5.0) 04/06/17 06:54 Chloride 105.3 mmol/L (98-107) 04/06/17 06:54 Carbon Dioxide 28 mmol/L (22-30) 04/06/17 06:54 Anion Gap 14 mmol/L 04/06/17 06:54 BUN 16 mg/dL (7-17) 04/06/17 06:54 Creatinine 1.6 mg/dL (0.7-1.2) H 04/06/17 06:54 Estimated GFR 42 ml/min 04/06/17 06:54 BUN/Creatinine Ratio 10 % 04/06/17 06:54 Glucose 92 mg/dL (65-100) 04/06/17 06:54 POC Glucose 79 (70-105) 04/06/17 17:35 Osmolality 351 Mosm/kg 09/16/16 11:47 Lactic Acid 2.30 mmol/L (0.7-2.0) H* 01/09/17 08:22 Calcium 9.3 mg/dL (8.4-10.2) 04/06/17 06:54 Ionized Calcium 6.0 mg/dL (4.8-5.6) H 02/15/17 19:08 Phosphorus 2.80 mg/dL (2.5-4.5) D 04/06/17 06:54 Magnesium 1.70 mg/dL (1.7-2.3) 04/06/17 06:54 Total Bilirubin 0.50 mg/dL (0.1-1.2) 04/04/17 07:20 Direct Bilirubin 0.2 mg/dL (0-0.2) 01/28/17 04:00 Indirect Bilirubin 0.3 mg/dL 01/28/17 04:00 AST 15 units/L (5-40) 04/04/17 07:20 ALT 7 units/L (7-56) 04/04/17 07:20 Alkaline Phosphatase 122 units/L (35-129) 04/04/17 07:20 Ammonia 27.0 umol/L (25-60) 09/07/16 08:37 Lactate Dehydrogenase 170 units/L (91-180) 01/13/17 15:50 Total Creatine Kinase 121 units/L (30-135) 09/29/16 20:12 CK-MB (CK-2) < 1.0 ng/mL (0.0-4.0) 09/29/16 20:12 CK-MB (CK-2) Rel Index 0.8 (0-4) 09/29/16 20:12 Troponin T 0.204 ng/mL (0.00-0.029) H* 09/29/16 20:12 C-Reactive Protein 19.50 mg/dL (0.00-1.30) H 03/14/17 12:51 Total Protein 7.3 g/dL (6.3-8.2) 04/04/17 07:20 Albumin 1.8 g/dL (3.9-5) L 04/04/17 07:20 Albumin/Globulin Ratio 0.3 % 04/04/17 07:20 Prealbumin 0.110 g/L (0.200-0.400) L 12/29/16 05:15 Triglycerides 94 mg/dL (2-149) 03/20/17 Unknown Cholesterol 31 mg/dL (50-199) L 09/29/16 20:12 LDL Cholesterol Direct 4 mg/dL (50-130) L 09/29/16 20:12 HDL Cholesterol 3 mg/dL (40-59) L 09/29/16 20:12 Cholesterol/HDL Ratio 10.33 % 09/29/16 20:12 Angiotensin Convert Enz See scanned report 09/08/16 11:48 Renin 0.99 ng/mL/h (0.25-5.82) 10/07/16 10:56 Aldosterone <1 ng/dL () 10/07/16 10:56 Aldosterone/Renin Dir see below 10/07/16 10:56 Serotonin Release Assay See scanned report 09/29/16 13:35 25-OH Vitamin D Total 13 ng/mL (30-100) L 02/15/17 19:08 25-Hydroxy Vitamin D2 . 02/15/17 19:08 25-Hydroxy Vitamin D3 . 02/15/17 19:08 TSH 1.010 mlU/mL (0.270-4.200) 09/07/16 08:37 HCG, Qual Negative (Negative) 09/03/16 00:10 PTH Intact 10.88 pg/mL (15-65) L 02/15/17 19:08 Total Cortisol 18.2 mcg/dL () 02/02/17 20:09 Urine Color Yellow (Yellow) 11/05/16 13:09 Urine Turbidity Clear (Clear) 11/05/16 13:09 Urine pH 9.0 (5.0-7.0) H 11/05/16 13:09 Ur Specific Jenners 1.011 (1.003-1.030) 11/05/16 13:09 Urine Protein 100 mg/dl mg/dL (Negative) 11/05/16 13:09 Urine Glucose (UA) Neg mg/dL (Negative) 11/05/16 13:09 Urine Ketones Neg mg/dL (Negative) 11/05/16 13:09 Urine Blood Neg (Negative) 11/05/16 13:09 Urine Nitrite Neg (Negative) 11/05/16 13:09 Urine Bilirubin Neg (Negative) 11/05/16 13:09 Urine Urobilinogen < 2.0 mg/dL (<2.0) 11/05/16 13:09 Ur Leukocyte Esterase Neg (Negative) 11/05/16 13:09 Urine WBC (Auto) 4.0 /HPF (0.0-6.0) 11/05/16 13:09 Urine RBC (Auto) 1.0 /HPF (0.0-6.0) 11/05/16 13:09 U Epithel Cells (Auto) 1.0 /HPF (0-13.0) 10/07/16 18:30 Urine Bacteria (Auto) 4+ /HPF (Negative) 11/05/16 13:09 Urine WBC Clumps 2+ /HPF 09/07/16 02:47 Hyaline Casts 4 /LPF 09/07/16 02:47 Urine Mucus Few /HPF 10/07/16 18:30 Urine Yeast (Budding) 3+ /HPF 10/07/16 18:30 Urine Eosinophils None seen (None Seen) 09/07/16 16:00 Urine Total Volume 950 11/12/16 10:18 Urine Creatinine 19.7 mg/dL (0.1-20.0) 11/12/16 10:18 Height (in) 65.0 inches 11/12/16 10:18 Weight (lb) 181.0 lbs 11/12/16 10:18 Creatinine Clearance 5 11/12/16 10:18 Urine Sodium 36 mEq/L 09/16/16 19:19 Urine Total Protein 16 mg/dL (5-11.8) H 09/16/16 19:19 Fluid Type Pleural 01/13/17 12:10 Fluid Color Yellow 01/13/17 12:10 Fluid Appearance Hazy 01/13/17 12:10 Fluid WBC 182 /mm3 01/13/17 12:10 Fluid RBC 41 /mm3 01/13/17 12:10 Fluid Seg Neutrophils 85.0 % 01/13/17 12:10 Fluid Lymphocytes 8.0 % 01/13/17 12:10 Fluid Reactive Lymphs 0 % 01/13/17 12:10 Fluid Monocytes 6.0 % 01/13/17 12:10 Fluid Eosinophils 1.0 % 01/13/17 12:10 Fluid Basophils 0 % 01/13/17 12:10 Fluid Total Protein 3.0 (15.0-45.0) L 01/13/17 12:10 Fluid LDH 1322 01/13/17 12:10 Fluid Comment Diff performed 01/13/17 12:10 Vancomycin Trough 2.3 ug/mL (5.0-20.0) L 09/21/16 13:00 Random Vancomycin 26.0 ug/mL (0-40.0) 03/13/17 05:39 Urine Opiates Screen Presumptive negative 09/03/16 15:11 Urine Methadone Screen Presumptive positive 09/03/16 15:11 Ur Barbiturates Screen Presumptive positive 09/03/16 15:11 Ur Phencyclidine Scrn Presumptive negative 09/03/16 15:11 Ur Amphetamines Screen Presumptive negative 09/03/16 15:11 U Benzodiazepines Scrn Presumptive negative 09/03/16 15:11 Urine Cocaine Screen Presumptive negative 09/03/16 15:11 U Marijuana (THC) Screen Presumptive positive 09/03/16 15:11 Drugs of Abuse Note Disclamer 09/03/16 15:11 Rheumatoid Factor 24 IU/ml (0-13) H 09/08/16 11:48 SAHIL Screen Negative (Negative) 09/07/16 09:20 Proteinase 3 (PR3) Ab <1.0 AI (<1.0) 09/07/16 09:20 Myeloperoxidase Ab <1.0 AI (<1.0) 09/07/16 09:20 Sjogren's Antibody <1.0 AI (<1.0) 09/08/16 15:35 Scl-70 Scleroderma Ab <1.0 AI (<1.0) 09/08/16 15:35 Centromere B Antibody <1.0 AI (<1.0) 09/08/16 12:02 Heparin-induced Plt Ab Negative (Negative) 09/29/16 13:35 UF Heparin High Dose 11 % Release 09/29/16 13:35 SUDHIR UFH Low Dose 0.1 6 % Release 09/29/16 13:35 SUDHIR UFH Low Dose 0.5 8 % Release 09/29/16 13:35 Cardiolipid IgG Ab <14 GPL (<=14) 09/12/16 09:59 Cardiolipid IgA Ab <11 APL (<=11) 09/12/16 09:59 Cardiolipid IgM Ab <12 MPL (<=12) 09/12/16 09:59 Complement C3 148 mg/dL (90-180) 09/07/16 09:20 Complement C4 58 mg/dL (16-47) H 09/07/16 09:20 RPR Nonreactive (Nonreactive) 09/08/16 11:48 Hepatitis A IgM Ab Non-reactive (NonReactive) 09/24/16 14:40 Hep Bs Antigen Non-reactive (Negative) 09/24/16 14:40 Hep B Core IgM Ab Non-reactive (NonReactive) 09/24/16 14:40 Hepatitis C Antibody Non-reactive (NonReactive) 09/24/16 14:40 HIV 1&2 Antibody Rapid Non react (Non React) 09/08/16 11:48 HIV P24 Antigen Non react (Non React) 09/08/16 11:48 Miscellaneous Test Flexitest 1 H 01/09/17 18:45 Blood Type A POSITIVE 03/20/17 16:00 Antibody Screen Negative 03/20/17 16:00 DELORIS Antibody Screen Negative 11/24/16 11:20 Crossmatch See Detail 03/20/17 16:00
[2017-04-07] MEDS: LOPRESSOR IV SCH ×4 (06:17→19:10)
[2017-04-07] MEDS: HumuLIN R SUB-Q SCH ×2 (06:19→15:50)
[2017-04-07] MEDS: DUONEB *Not for PRN Use IH SCH ×3 (08:16→19:59)
--- NOTE | 2017-04-07 08:23 | Progress Note ---
Assessment and Plan Assessment * Oliguric acute kidney injury secondary to ATN on CKD - baseline SCr 1.7mg/dL; likely now ESRD --Patient's serum creatinine is noted to be low - due to wasting of muscle mass. Needs to be maintained on dialysis at this time. 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 * Abx per ID * Adjust Ca bath with dialysis * Rate control per cardiology * Transfuse pRBC per primary team. Epogen TIW prn * Vent management per pulm/CCM * Pressors prn for MAP>65 * Dose medications for renal function * Will see again on Monday Subjective Date of service: 04/07/17 Principal diagnosis: Acute resp failure on MVS; S/P Acute CVA; Acute Encephalopathy; JUANITA Interval history: 24h events reviewed. Objective - Vital Signs Vital signs: Vital Signs - 12hr 04/06/17 04/06/17 04/06/17 20:30 21:00 21:30 Temperature Pulse Rate 107 H 109 H 108 H Pulse Rate [ Anterior Bilateral Throughout] Respiratory 16 14 14 Rate Respiratory Rate [Anterior Bilateral Throughout] Blood Pressure 103/59 102/57 95/55 O2 Sat by Pulse 100 100 100 Oximetry O2 Sat by Pulse Oximetry [ Assessment] 04/06/17 04/06/17 04/06/17 22:00 22:30 23:00 Temperature Pulse Rate 107 H 111 H 115 H Pulse Rate [ Anterior Bilateral Throughout] Respiratory 16 13 14 Rate Respiratory Rate [Anterior Bilateral Throughout] Blood Pressure 101/61 101/61 103/62 O2 Sat by Pulse 100 100 100 Oximetry O2 Sat by Pulse Oximetry [ Assessment] 04/06/17 04/06/17 04/06/17 23:07 23:10 23:30 Temperature Pulse Rate 115 H 114 H Pulse Rate [ Anterior Bilateral Throughout] Respiratory 13 Rate Respiratory Rate [Anterior Bilateral Throughout] Blood Pressure 103/62 112/66 O2 Sat by Pulse 100 100 Oximetry O2 Sat by Pulse 100 Oximetry [ Assessment] 04/07/17 04/07/17 04/07/17 00:00 00:30 01:00 Temperature 97.8 F Pulse Rate 113 H 109 H 110 H Pulse Rate [ Anterior Bilateral Throughout] Respiratory 14 14 13 Rate Respiratory Rate [Anterior Bilateral Throughout] Blood Pressure 96/53 94/50 102/51 O2 Sat by Pulse 99 100 100 Oximetry O2 Sat by Pulse Oximetry [ Assessment] 04/07/17 04/07/17 04/07/17 01:30 02:00 02:30 Temperature Pulse Rate 108 H 109 H 107 H Pulse Rate [ Anterior Bilateral Throughout] Respiratory 16 14 13 Rate Respiratory Rate [Anterior Bilateral Throughout] Blood Pressure 109/58 95/50 96/50 O2 Sat by Pulse 100 99 100 Oximetry O2 Sat by Pulse Oximetry [ Assessment] 04/07/17 04/07/17 04/07/17 03:00 03:27 03:30 Temperature Pulse Rate 109 H 109 H 108 H Pulse Rate [ Anterior Bilateral Throughout] Respiratory 15 17 Rate Respiratory Rate [Anterior Bilateral Throughout] Blood Pressure 88/52 96/50 96/46 O2 Sat by Pulse 99 100 99 Oximetry O2 Sat by Pulse Oximetry [ Assessment] 04/07/17 04/07/17 04/07/17 04:00 04:01 04:30 Temperature 99.0 F Pulse Rate 121 H 115 H Pulse Rate [ Anterior Bilateral Throughout] Respiratory 18 21 Rate Respiratory Rate [Anterior Bilateral Throughout] Blood Pressure 108/82 117/70 O2 Sat by Pulse 100 99 Oximetry O2 Sat by Pulse Oximetry [ Assessment] 04/07/17 04/07/17 04/07/17 05:00 05:30 06:00 Temperature Pulse Rate 118 H 114 H 113 H Pulse Rate [ Anterior Bilateral Throughout] Respiratory 14 15 14 Rate Respiratory Rate [Anterior Bilateral Throughout] Blood Pressure 115/71 106/54 110/50 O2 Sat by Pulse 99 97 97 Oximetry O2 Sat by Pulse Oximetry [ Assessment] 04/07/17 04/07/17 04/07/17 06:17 06:18 07:39 Temperature 99.3 F Pulse Rate 107 H 114 H Pulse Rate [ Anterior Bilateral Throughout] Respiratory Rate Respiratory Rate [Anterior Bilateral Throughout] Blood Pressure 93/56 110/50 O2 Sat by Pulse Oximetry O2 Sat by Pulse Oximetry [ Assessment] 04/07/17 08:16 Temperature Pulse Rate Pulse Rate [ 112 H Anterior Bilateral Throughout] Respiratory Rate Respiratory 14 Rate [Anterior Bilateral Throughout] Blood Pressure O2 Sat by Pulse Oximetry O2 Sat by Pulse Oximetry [ Assessment] - General Appearance General appearance: chronically ill EENT: ATNC Neck: other (trach) Respiratory: Present: Other (coarse breath ssounds) Cardiology: regular Gastrointestinal: hypoactive bowel sounds Neurologic: other (no meaningful/purposeful response to tactile, verbal stimuli) Musculoskeletal: other (dependent edema) - Lab 04/03/17 11:40 04/06/17 06:54 Most recent lab results ABG pH 7.450 pH Units (7.350-7.450) 12/05/16 Unknown ABG pCO2 29.6 mm Hg 12/05/16 Unknown ABG pO2 75.2 mm Hg (80.0-90.0) L 12/05/16 Unknown ABG HCO3 20.1 mmol/L (20.0-26.0) 12/05/16 Unknown ABG O2 Saturation 96.8 % (95.0-99.0) 12/05/16 Unknown Calcium 9.3 mg/dL (8.4-10.2) 04/06/17 06:54 Phosphorus 2.80 mg/dL (2.5-4.5) D 04/06/17 06:54 Magnesium 1.70 mg/dL (1.7-2.3) 04/06/17 06:54 Urine Creatinine 19.7 mg/dL (0.1-20.0) 11/12/16 10:18 Urine Sodium 36 mEq/L 09/16/16 19:19 Urine Total Protein 16 mg/dL (5-11.8) H 09/16/16 19:19
--- NOTE | 2017-04-07 09:05 | Progress Note ---
Assessment and Plan Assessment and plan: 47-year-old female patient , large CVA , hypoxic encephalopathy , status post cardiac arrest , vegetative state , atrial fibrillation , sepsis , aspiration pneumonia , end- stage renal disease on hemodialysis , multiple sacral and lower extremity decubiti requiring debridement , severe protein calorie malnutrition peritonitis / perforation, multiple surgeries, DO NOT RESUSCITATE status,prolonged hospital stay and poor prognosis, --Hypotension; pressors as needed --Acute respiratory failure/status post tracheostomy/ventilator dependent/ continue current management --Aspiration pneumonia/managed with multiple antibiotics per ID currently on daptomycin and Zosyn --Status post cardiac arrest/anoxic encephalopathy/vegetative state --Large CVA with mass effect/anoxic brain injury --Perforated bowel/drainage of large fluid collection, continue supportive care --Peritonitis/gastric perforation/status post laparotomy/on TPN --A. fib with rapid ventricular rate/continue amiodarone as needed --Sepsis/recurrent enterococcal infection/currently off antibiotics --End-stage renal disease; on hemodialysis, nephrology following --Multiple sacral decubiti stage III to stage IV, post debridement, continue wound care --Severe protein calorie malnutrition; continue TPN, supportive care --DO NOT RESUSCITATE status, recommend hospice[family not willing] Very poor prognosis, family aware, recommend hospice, family not willing Unable to place in LTAC/SNF, Multiple social issues Possible family meeting very soon Continue current management History Interval history: Patient seen and evaluated her medical records reviewed Clinically no change Tracheostomy , Vent dependent Possible transfer to hospice on Monday Hospitalist Physical - Constitutional Vitals: Temp Pulse Resp BP Pulse Ox 99.3 F 112 H 14 90/54 99 04/07/17 07:39 04/07/17 08:16 04/07/17 08:16 04/07/17 08:16 04/07/17 08:16 General appearance: Present: no acute distress, cachectic, other (spontaneous opening of eyes, unresponsive) - EENT Eyes: Present: PERRL - Neck Neck: Present: supple - Respiratory Respiratory effort: normal Respiratory: bilateral: diminished, rhonchi - Cardiovascular Rhythm: irregularly irregular Heart Sounds: Present: S1 & S2 - Extremities Extremities: abnormal (contracted) Extremity abnormal: edema - Abdominal General gastrointestinal: soft, non-tender, non-distended, hypoactive bowel sounds - Integumentary Integumentary: Present: clear, warm - Psychiatric Psychiatric: other (unresponsive) - Neurologic Neurologic: other (unresponsive) Results - Labs CBC & Chem 7: 04/03/17 11:40 04/06/17 06:54 Labs: Laboratory Last Values WBC 4.7 K/mm3 (4.5-11.0) 04/03/17 11:40 RBC 2.40 M/mm3 (3.65-5.03) L 04/03/17 11:40 Hgb 7.7 gm/dl (10.1-14.3) L 04/03/17 11:40 Hct 24.1 % (30.3-42.9) L 04/03/17 11:40 MCV 101 fl (79-97) H 04/03/17 11:40 MCH 32 pg (28-32) 04/03/17 11:40 MCHC 32 % (30-34) 04/03/17 11:40 RDW 23.1 % (13.2-15.2) H 04/03/17 11:40 Plt Count 251 K/mm3 (140-440) 04/03/17 11:40 Lymph % (Auto) 25.1 % (13.4-35.0) 03/27/17 05:30 [place] % (Auto) 8.6 % (0.0-7.3) H 03/27/17 05:30 Eos % (Auto) 3.9 % (0.0-4.3) 03/27/17 05:30 Baso % (Auto) 1.5 % (0.0-1.8) 03/27/17 05:30 Lymph # 1.4 K/mm3 (1.2-5.4) 03/27/17 05:30 [place] # 0.5 K/mm3 (0.0-0.8) 03/27/17 05:30 Eos # 0.2 K/mm3 (0.0-0.4) 03/27/17 05:30 Baso # 0.1 K/mm3 (0.0-0.1) 03/27/17 05:30 Add Manual Diff Complete 03/14/17 14:30 Total Counted 100 03/14/17 14:30 Seg Neutrophils % 60.9 % (40.0-70.0) 03/27/17 05:30 Seg Neuts % (Manual) 70.0 % (40.0-70.0) 03/14/17 14:30 Band Neutrophils % 0 % 03/14/17 14:30 Lymphocytes % (Manual) 13.0 % (13.4-35.0) L 03/14/17 14:30 Reactive Lymphs % (Man) 1.0 % 03/14/17 14:30 Monocytes % (Manual) 15.0 % (0.0-7.3) H 03/14/17 14:30 Eosinophils % (Manual) 1.0 % (0.0-4.3) 03/14/17 14:30 Basophils % (Manual) 0 % (0.0-1.8) 03/14/17 14:30 Metamyelocytes % 0 % 03/14/17 14:30 Myelocytes % 0 % 03/14/17 14:30 Promyelocytes % 0 % 03/14/17 14:30 Blast Cells % 0 % 03/14/17 14:30 Nucleated RBC % Not Reportable 03/14/17 14:30 Seg Neutrophils # 3.3 K/mm3 (1.8-7.7) 03/27/17 05:30 Seg Neutrophils # Man 12.3 K/mm3 (1.8-7.7) H 03/14/17 14:30 Band Neutrophils # 0.0 K/mm3 03/14/17 14:30 Lymphocytes # (Manual) 2.3 K/mm3 (1.2-5.4) 03/14/17 14:30 Abs React Lymphs (Man) 0.2 K/mm3 03/14/17 14:30 Monocytes # (Manual) 2.6 K/mm3 (0.0-0.8) H 03/14/17 14:30 Eosinophils # (Manual) 0.2 K/mm3 (0.0-0.4) 03/14/17 14:30 Basophils # (Manual) 0.0 K/mm3 (0.0-0.1) 03/14/17 14:30 Metamyelocytes # 0.0 K/mm3 03/14/17 14:30 Myelocytes # 0.0 K/mm3 03/14/17 14:30 Promyelocytes # 0.0 K/mm3 03/14/17 14:30 Blast Cells # 0.0 K/mm3 03/14/17 14:30 Pathologist Review 09/13/16 04:00 WBC Morphology Not Reportable 03/14/17 14:30 Hypersegmented Neuts Not Reportable 03/14/17 14:30 Hyposegmented Neuts Not Reportable 03/14/17 14:30 Hypogranular Neuts Not Reportable 03/14/17 14:30 Smudge Cells Not Reportable 03/14/17 14:30 Toxic Granulation Not Reportable 03/14/17 14:30 Toxic Vacuolation Not Reportable 03/14/17 14:30 Dohle Bodies Not Reportable 03/14/17 14:30 Pelger-Huet Anomaly Not Reportable 03/14/17 14:30 Jasmina Rods Not Reportable 03/14/17 14:30 Platelet Estimate Consistent w auto 03/14/17 14:30 Clumped Platelets Not Reportable 03/14/17 14:30 Plt Clumps, EDTA Not Reportable 03/14/17 14:30 Large Platelets Not Reportable 03/14/17 14:30 Giant Platelets Not Reportable 03/14/17 14:30 Platelet Satelliting Not Reportable 03/14/17 14:30 Plt Morphology Comment Not Reportable 03/14/17 14:30 RBC Morphology Not Reportable 03/14/17 14:30 Dimorphic RBCs Not Reportable 03/14/17 14:30 Polychromasia Not Reportable 03/14/17 14:30 Hypochromasia 2+ 03/14/17 14:30 Poikilocytosis Not Reportable 03/14/17 14:30 Anisocytosis 1+ 03/14/17 14:30 Microcytosis Not Reportable 03/14/17 14:30 Macrocytosis Not Reportable 03/14/17 14:30 Spherocytes Not Reportable 03/14/17 14:30 Pappenheimer Bodies Not Reportable 03/14/17 14:30 Sickle Cells Not Reportable 03/14/17 14:30 Target Cells Not Reportable 03/14/17 14:30 Tear Drop Cells Not Reportable 03/14/17 14:30 Ovalocytes Not Reportable 03/14/17 14:30 Stomatocytes 2+ 03/14/17 14:30 Helmet Cells Not Reportable 03/14/17 14:30 [place] Bodies Not Reportable 03/14/17 14:30 Lares Rings Not Reportable 03/14/17 14:30 Chuck Cells Not Reportable 03/14/17 14:30 Bite Cells Not Reportable 03/14/17 14:30 Crenated Cell Not Reportable 03/14/17 14:30 Elliptocytes Not Reportable 03/14/17 14:30 Acanthocytes (Spur) Not Reportable 03/14/17 14:30 Rouleaux Not Reportable 03/14/17 14:30 Hemoglobin C Crystals Not Reportable 03/14/17 14:30 Schistocytes Not Reportable 03/14/17 14:30 Malaria parasites Not Reportable 03/14/17 14:30 ESR > 140.0 mm/Hr (0-20) 09/08/16 11:48 Jun Bodies Not Reportable 03/14/17 14:30 Hem Pathologist Commnt No 03/14/17 14:30 PT 15.4 Sec. (12.2-14.9) H 01/13/17 15:50 INR 1.16 (0.87-1.13) H 01/13/17 15:50 APTT 33.0 Sec. (24.2-36.6) 10/09/16 03:45 Thrombin Time 16.8 Sec. (15.1-19.6) 09/03/16 00:10 Fibrinogen 750 mg/dl (211-480) H 09/08/16 11:48 Lupus Anticoagulant see below 09/12/16 09:59 LA PTT Baseline See scanned report 09/12/16 09:59 dRVVT Confirm Interp Positive (Negative) H 09/12/16 09:59 dRVVT Screen 50:50 See scanned report 09/12/16 09:59 dRVVT Mix Interpret See scanned report 09/12/16 09:59 Protein C Antigen 122 % (70-140) 09/08/16 15:35 Free Protein S 97 % normal (50-147) 09/08/16 15:35 Total Protein S 109 % (70-140) 09/08/16 15:35 Antithrombin III Ag 100 % (80-120) 09/08/16 15:35 Heparin Anti-Xa, Unfract Negative (Negative) 09/29/16 13:35 Factor V Activity 182 % (65-150) H 09/08/16 15:35 POC ABG pH 7.518 (7.35-7.45) H 03/03/17 20: ABG pH 7.450 pH Units (7.350-7.450) 12/05/16 Unknown POC ABG pCO2 28.8 (35-45) L 03/03/17 20: ABG pCO2 29.6 mm Hg 12/05/16 Unknown POC ABG pO2 61 (80-105) L 03/03/17 20: ABG pO2 75.2 mm Hg (80.0-90.0) L 12/05/16 Unknown POC ABG HCO3 23.4 03/03/17 20: ABG HCO3 20.1 mmol/L (20.0-26.0) 12/05/16 Unknown POC ABG Total CO2 24 03/03/17 20: POC ABG O2 Sat 94 03/03/17 20: ABG O2 Saturation 96.8 % (95.0-99.0) 12/05/16 Unknown ABG O2 Content 9.9 (0.0-44) 12/05/16 Unknown POC ABG Base Excess 0 03/03/17 20: ABG Base Excess -3.4 mmol/L (-2.0-3.0) L 12/05/16 Unknown ABG Hemoglobin 7.4 gm/dl (12.0-16.0) L 12/05/16 Unknown ABG Carboxyhemoglobin 1.8 % (0.0-5.0) 12/05/16 Unknown ABG Methemoglobin 0.6 % (0.0-1.5) 12/05/16 Unknown Oxyhemoglobin 94.5 % (95.0-99.0) L 12/05/16 Unknown FiO2 40 % 03/03/17 20:17 Sodium 143 mmol/L (137-145) 04/06/17 06:54 Potassium 4.3 mmol/L (3.6-5.0) 04/06/17 06:54 Chloride 105.3 mmol/L (98-107) 04/06/17 06:54 Carbon Dioxide 28 mmol/L (22-30) 04/06/17 06:54 Anion Gap 14 mmol/L 04/06/17 06:54 BUN 16 mg/dL (7-17) 04/06/17 06:54 Creatinine 1.6 mg/dL (0.7-1.2) H 04/06/17 06:54 Estimated GFR 42 ml/min 04/06/17 06:54 BUN/Creatinine Ratio 10 % 04/06/17 06:54 Glucose 92 mg/dL (65-100) 04/06/17 06:54 POC Glucose 76 (70-105) 04/07/17 05:44 Osmolality 351 Mosm/kg 09/16/16 11:47 Lactic Acid 2.30 mmol/L (0.7-2.0) H* 01/09/17 08:22 Calcium 9.3 mg/dL (8.4-10.2) 04/06/17 06:54 Ionized Calcium 6.0 mg/dL (4.8-5.6) H 02/15/17 19:08 Phosphorus 2.80 mg/dL (2.5-4.5) D 04/06/17 06:54 Magnesium 1.70 mg/dL (1.7-2.3) 04/06/17 06:54 Total Bilirubin 0.50 mg/dL (0.1-1.2) 04/04/17 07:20 Direct Bilirubin 0.2 mg/dL (0-0.2) 01/28/17 04:00 Indirect Bilirubin 0.3 mg/dL 01/28/17 04:00 AST 15 units/L (5-40) 04/04/17 07:20 ALT 7 units/L (7-56) 04/04/17 07:20 Alkaline Phosphatase 122 units/L (35-129) 04/04/17 07:20 Ammonia 27.0 umol/L (25-60) 09/07/16 08:37 Lactate Dehydrogenase 170 units/L (91-180) 01/13/17 15:50 Total Creatine Kinase 121 units/L (30-135) 09/29/16 20:12 CK-MB (CK-2) < 1.0 ng/mL (0.0-4.0) 09/29/16 20:12 CK-MB (CK-2) Rel Index 0.8 (0-4) 09/29/16 20:12 Troponin T 0.204 ng/mL (0.00-0.029) H* 09/29/16 20:12 C-Reactive Protein 19.50 mg/dL (0.00-1.30) H 03/14/17 12:51 Total Protein 7.3 g/dL (6.3-8.2) 04/04/17 07:20 Albumin 1.8 g/dL (3.9-5) L 04/04/17 07:20 Albumin/Globulin Ratio 0.3 % 04/04/17 07:20 Prealbumin 0.110 g/L (0.200-0.400) L 12/29/16 05:15 Triglycerides 94 mg/dL (2-149) 03/20/17 Unknown Cholesterol 31 mg/dL (50-199) L 09/29/16 20:12 LDL Cholesterol Direct 4 mg/dL (50-130) L 09/29/16 20:12 HDL Cholesterol 3 mg/dL (40-59) L 09/29/16 20:12 Cholesterol/HDL Ratio 10.33 % 09/29/16 20:12 Angiotensin Convert Enz See scanned report 09/08/16 11:48 Renin 0.99 ng/mL/h (0.25-5.82) 10/07/16 10:56 Aldosterone <1 ng/dL () 10/07/16 10:56 Aldosterone/Renin Dir see below 10/07/16 10:56 Serotonin Release Assay See scanned report 09/29/16 13:35 25-OH Vitamin D Total 13 ng/mL (30-100) L 02/15/17 19:08 25-Hydroxy Vitamin D2 . 02/15/17 19:08 25-Hydroxy Vitamin D3 . 02/15/17 19:08 TSH 1.010 mlU/mL (0.270-4.200) 09/07/16 08:37 HCG, Qual Negative (Negative) 09/03/16 00:10 PTH Intact 10.88 pg/mL (15-65) L 02/15/17 19:08 Total Cortisol 18.2 mcg/dL () 02/02/17 20:09 Urine Color Yellow (Yellow) 11/05/16 13:09 Urine Turbidity Clear (Clear) 11/05/16 13:09 Urine pH 9.0 (5.0-7.0) H 11/05/16 13:09 Ur Specific [place] 1.011 (1.003-1.030) 11/05/16 13:09 Urine Protein 100 mg/dl mg/dL (Negative) 11/05/16 13:09 Urine Glucose (UA) Neg mg/dL (Negative) 11/05/16 13:09 Urine Ketones Neg mg/dL (Negative) 11/05/16 13:09 Urine Blood Neg (Negative) 11/05/16 13:09 Urine Nitrite Neg (Negative) 11/05/16 13:09 Urine Bilirubin Neg (Negative) 11/05/16 13:09 Urine Urobilinogen < 2.0 mg/dL (<2.0) 11/05/16 13:09 Ur Leukocyte Esterase Neg (Negative) 11/05/16 13:09 Urine WBC (Auto) 4.0 /HPF (0.0-6.0) 11/05/16 13:09 Urine RBC (Auto) 1.0 /HPF (0.0-6.0) 11/05/16 13:09 U Epithel Cells (Auto) 1.0 /HPF (0-13.0) 10/07/16 18:30 Urine Bacteria (Auto) 4+ /HPF (Negative) 11/05/16 13:09 Urine WBC Clumps 2+ /HPF 09/07/16 02:47 Hyaline Casts 4 /LPF 09/07/16 02:47 Urine Mucus Few /HPF 10/07/16 18:30 Urine Yeast (Budding) 3+ /HPF 10/07/16 18:30 Urine Eosinophils None seen (None Seen) 09/07/16 16:00 Urine Total Volume 950 11/12/16 10:18 Urine Creatinine 19.7 mg/dL (0.1-20.0) 11/12/16 10:18 Height (in) 65.0 inches 11/12/16 10:18 Weight (lb) 181.0 lbs 11/12/16 10:18 Creatinine Clearance 5 11/12/16 10:18 Urine Sodium 36 mEq/L 09/16/16 19:19 Urine Total Protein 16 mg/dL (5-11.8) H 09/16/16 19:19 Fluid Type Pleural 01/13/17 12:10 Fluid Color Yellow 01/13/17 12:10 Fluid Appearance Hazy 01/13/17 12:10 Fluid WBC 182 /mm3 01/13/17 12:10 Fluid RBC 41 /mm3 01/13/17 12:10 Fluid Seg Neutrophils 85.0 % 01/13/17 12:10 Fluid Lymphocytes 8.0 % 01/13/17 12:10 Fluid Reactive Lymphs 0 % 01/13/17 12:10 Fluid Monocytes 6.0 % 01/13/17 12:10 Fluid Eosinophils 1.0 % 01/13/17 12:10 Fluid Basophils 0 % 01/13/17 12:10 Fluid Total Protein 3.0 (15.0-45.0) L 01/13/17 12:10 Fluid LDH 1322 01/13/17 12:10 Fluid Comment Diff performed 01/13/17 12:10 Vancomycin Trough 2.3 ug/mL (5.0-20.0) L 09/21/16 13:00 Random Vancomycin 26.0 ug/mL (0-40.0) 03/13/17 05:39 Urine Opiates Screen Presumptive negative 09/03/16 15:11 Urine Methadone Screen Presumptive positive 09/03/16 15:11 Ur Barbiturates Screen Presumptive positive 09/03/16 15:11 Ur Phencyclidine Scrn Presumptive negative 09/03/16 15:11 Ur Amphetamines Screen Presumptive negative 09/03/16 15:11 U Benzodiazepines Scrn Presumptive negative 09/03/16 15:11 Urine Cocaine Screen Presumptive negative 09/03/16 15:11 U Marijuana (THC) Screen Presumptive positive 09/03/16 15:11 Drugs of Abuse Note Disclamer 09/03/16 15:11 Rheumatoid Factor 24 IU/ml (0-13) H 09/08/16 11:48 SAHIL Screen Negative (Negative) 09/07/16 09:20 Proteinase 3 (PR3) Ab <1.0 AI (<1.0) 09/07/16 09:20 Myeloperoxidase Ab <1.0 AI (<1.0) 09/07/16 09:20 Sjogren's Antibody <1.0 AI (<1.0) 09/08/16 15:35 Scl-70 Scleroderma Ab <1.0 AI (<1.0) 09/08/16 15:35 Centromere B Antibody <1.0 AI (<1.0) 09/08/16 12:02 Heparin-induced Plt Ab Negative (Negative) 09/29/16 13:35 UF Heparin High Dose 11 % Release 09/29/16 13:35 SUDHIR UFH Low Dose 0.1 6 % Release 09/29/16 13:35 SUDHIR UFH Low Dose 0.5 8 % Release 09/29/16 13:35 Cardiolipid IgG Ab <14 GPL (<=14) 09/12/16 09:59 Cardiolipid IgA Ab <11 APL (<=11) 09/12/16 09:59 Cardiolipid IgM Ab <12 MPL (<=12) 09/12/16 09:59 Complement C3 148 mg/dL (90-180) 09/07/16 09:20 Complement C4 58 mg/dL (16-47) H 09/07/16 09:20 RPR Nonreactive (Nonreactive) 09/08/16 11:48 Hepatitis A IgM Ab Non-reactive (NonReactive) 09/24/16 14:40 Hep Bs Antigen Non-reactive (Negative) 09/24/16 14:40 Hep B Core IgM Ab Non-reactive (NonReactive) 09/24/16 14:40 Hepatitis C Antibody Non-reactive (NonReactive) 09/24/16 14:40 HIV 1&2 Antibody Rapid Non react (Non React) 09/08/16 11:48 HIV P24 Antigen Non react (Non React) 09/08/16 11:48 Miscellaneous Test Flexitest 1 H 01/09/17 18:45 Blood Type A POSITIVE 03/20/17 16:00 Antibody Screen Negative 03/20/17 16:00 DELORIS Antibody Screen Negative 11/24/16 11:20 Crossmatch See Detail 03/20/17 16:00
--- NOTE | 2017-04-07 13:01 | Progress Note ---
Assessment and Plan Acute Hypoxemic Respiratory Failure (now with exacerbation and back on MVS) Hypertension (unable to receive p.o. meds) Atrial Fibrillation with RVR s/p tracheostomy Acute encephalopathy s/p CVA Oropharyngeal dysphagia Enterococcal bacteremia sepsis syndrome Sacral Decubitus Ulcer (s/p surgical debridement) Anemia Obesity JUANITA now on hemodialysis Enteric Fistula (Family is discussing with hospice team re: comfort care but still continuing current management for now) - keeping IR drain in place fo now - continue scheduled IV metoprolol with hold parameters - continue to hold tube feeds due to continued intolerance; continue reglan at 10mg IV q8h - continue NGT to LIS - continue TPN - prn CXR's at this point - appreciate surgery input - continue fentanyl patch for pain issues especially s/p debridement - continue wound care per WCT and RN's (she is s/p surgical debridement) - continue anti-infectives per ID recs - prn CRP & lactate levels if clinically indicated (Follow WBC also) - continue TPN administration (Change to PPN re: vascular access issues) - continue robinul & scopolamine for secretion control - continue to wean FiO2 for sats > 94% - continue bronchodilators and pulmonary toilet - VAP bundle addressed - continue to follow electrolytes and correct as necessary - continue GI & VTE prophylaxis - Continue flu & pneumovax per protocol .....she remains critically ill on life sustaining interventions including MVS and at risk for further deterioration including ....30' CCT ....care plan discussed at length during team rounds ...terminal carman prognosis remains guarded and this has intermittently been conveyed to family Subjective Date of service: 04/07/17 Principal diagnosis: Acute resp failure on MVS; S/P Acute CVA; Acute Encephalopathy; JUANITA Interval history: Patient is seen today for: Acute resp failure on MVS; S/P Acute CVA; Acute Encephalopathy; JUANITA Seen and examined at bedside; 24hour events reviewed; nursing and respiratory care staff consulted; no adverse overnight events reported to me; remains on MVS ; continues on dialysis M/W/ schedule; no new issues otherwise and AMS is persistent Objective Vital Signs - 12hr 04/07/17 04/07/17 04/07/17 01:30 02:00 02:30 Temperature Pulse Rate 108 H 109 H 107 H Pulse Rate [ Anterior Bilateral Throughout] Respiratory 16 14 13 Rate Respiratory Rate [Anterior Bilateral Throughout] Respiratory Rate [ Generalized] Blood Pressure 109/58 95/50 96/50 O2 Sat by Pulse 100 99 100 Oximetry O2 Sat by Pulse Oximetry [ Assessment] O2 Sat by Pulse Oximetry [ Throughout] 04/07/17 04/07/17 04/07/17 03:00 03:27 03:30 Temperature Pulse Rate 109 H 109 H 108 H Pulse Rate [ Anterior Bilateral Throughout] Respiratory 15 17 Rate Respiratory Rate [Anterior Bilateral Throughout] Respiratory Rate [ Generalized] Blood Pressure 88/52 96/50 96/46 O2 Sat by Pulse 99 100 99 Oximetry O2 Sat by Pulse Oximetry [ Assessment] O2 Sat by Pulse Oximetry [ Throughout] 04/07/17 04/07/17 04/07/17 04:00 04:01 04:30 Temperature 99.0 F Pulse Rate 121 H 115 H Pulse Rate [ Anterior Bilateral Throughout] Respiratory 18 21 Rate Respiratory Rate [Anterior Bilateral Throughout] Respiratory Rate [ Generalized] Blood Pressure 108/82 117/70 O2 Sat by Pulse 100 99 Oximetry O2 Sat by Pulse Oximetry [ Assessment] O2 Sat by Pulse Oximetry [ Throughout] 04/07/17 04/07/17 04/07/17 05:00 05:30 06:00 Temperature Pulse Rate 118 H 114 H 113 H Pulse Rate [ Anterior Bilateral Throughout] Respiratory 14 15 14 Rate Respiratory Rate [Anterior Bilateral Throughout] Respiratory Rate [ Generalized] Blood Pressure 115/71 106/54 110/50 O2 Sat by Pulse 99 97 97 Oximetry O2 Sat by Pulse Oximetry [ Assessment] O2 Sat by Pulse Oximetry [ Throughout] 04/07/17 04/07/17 04/07/17 06:17 06:18 06:30 Temperature Pulse Rate 107 H 114 H 112 H Pulse Rate [ Anterior Bilateral Throughout] Respiratory 17 Rate Respiratory Rate [Anterior Bilateral Throughout] Respiratory Rate [ Generalized] Blood Pressure 93/56 110/50 102/67 O2 Sat by Pulse 96 Oximetry O2 Sat by Pulse Oximetry [ Assessment] O2 Sat by Pulse Oximetry [ Throughout] 04/07/17 04/07/17 04/07/17 07:00 07:30 07:39 Temperature 99.3 F Pulse Rate 114 H 113 H Pulse Rate [ Anterior Bilateral Throughout] Respiratory 15 14 Rate Respiratory Rate [Anterior Bilateral Throughout] Respiratory Rate [ Generalized] Blood Pressure 105/59 95/51 O2 Sat by Pulse 99 97 Oximetry O2 Sat by Pulse Oximetry [ Assessment] O2 Sat by Pulse Oximetry [ Throughout] 04/07/17 04/07/17 04/07/17 08:00 08:16 08:30 Temperature Pulse Rate 110 H 112 H 116 H Pulse Rate [ 112 H Anterior Bilateral Throughout] Respiratory 16 12 Rate Respiratory 14 Rate [Anterior Bilateral Throughout] Respiratory Rate [ Generalized] Blood Pressure 90/54 90/54 101/58 O2 Sat by Pulse 98 99 99 Oximetry O2 Sat by Pulse 99 Oximetry [ Assessment] O2 Sat by Pulse Oximetry [ Throughout] 04/07/17 04/07/17 04/07/17 09:00 09:30 10:00 Temperature Pulse Rate 109 H 109 H 103 H Pulse Rate [ Anterior Bilateral Throughout] Respiratory 12 12 12 Rate Respiratory Rate [Anterior Bilateral Throughout] Respiratory 14 Rate [ Generalized] Blood Pressure 95/53 105/59 96/52 O2 Sat by Pulse 100 100 100 Oximetry O2 Sat by Pulse Oximetry [ Assessment] O2 Sat by Pulse Oximetry [ Throughout] 04/07/17 04/07/17 04/07/17 10:30 10:45 11:00 Temperature 99.3 F Pulse Rate 114 H 112 H 115 H Pulse Rate [ Anterior Bilateral Throughout] Respiratory 14 18 Rate Respiratory Rate [Anterior Bilateral Throughout] Respiratory Rate [ Generalized] Blood Pressure 100/62 125/82 125/82 O2 Sat by Pulse 97 Oximetry O2 Sat by Pulse Oximetry [ Assessment] O2 Sat by Pulse 99 Oximetry [ Throughout] 04/07/17 04/07/17 04/07/17 11:01 11:15 11:30 Temperature Pulse Rate 120 H 107 H 113 H Pulse Rate [ Anterior Bilateral Throughout] Respiratory 15 16 Rate Respiratory Rate [Anterior Bilateral Throughout] Respiratory Rate [ Generalized] Blood Pressure 125/82 104/64 119/75 O2 Sat by Pulse 98 100 Oximetry O2 Sat by Pulse Oximetry [ Assessment] O2 Sat by Pulse Oximetry [ Throughout] 04/07/17 04/07/17 04/07/17 11:31 11:46 12:00 Temperature 99.1 F Pulse Rate 111 H 114 H 112 H Pulse Rate [ Anterior Bilateral Throughout] Respiratory 18 Rate Respiratory Rate [Anterior Bilateral Throughout] Respiratory Rate [ Generalized] Blood Pressure 119/75 97/56 99/62 O2 Sat by Pulse 99 Oximetry O2 Sat by Pulse Oximetry [ Assessment] O2 Sat by Pulse Oximetry [ Throughout] 04/07/17 04/07/1704/07/18 12:05 12:15 12:30 Temperature Pulse Rate 110 H 108 H 111 H Pulse Rate [ Anterior Bilateral Throughout] Respiratory 13 Rate Respiratory Rate [Anterior Bilateral Throughout] Respiratory Rate [ Generalized] Blood Pressure 99/62 93/57 89/61 O2 Sat by Pulse 99 Oximetry O2 Sat by Pulse Oximetry [ Assessment] O2 Sat by Pulse Oximetry [ Throughout] 04/07/17 12:45 Temperature Pulse Rate 107 H Pulse Rate [ Anterior Bilateral Throughout] Respiratory Rate Respiratory Rate [Anterior Bilateral Throughout] Respiratory Rate [ Generalized] Blood Pressure 89/61 O2 Sat by Pulse 99 Oximetry O2 Sat by Pulse Oximetry [ Assessment] O2 Sat by Pulse Oximetry [ Throughout] Constitutional: appears uncomfortable, other (not tracking) Eyes: non-icteric, other (tracheostomy tube in midline of neck) ENT: oropharynx moist, oropharyngeal exudate pre, other (midline tracheostomy tube) Neck: supple, no lymphadenopathy, no JVD, other (no thyromegaly) Effort: mildly labored Ascultation: Bilateral: clear, diminished breath sounds (bases R>L), rales, rhonchi (and referred upper airway sounds) Percussion: Right: dull (base), Bilateral: not dull Cardiovascular: regular rate and rhythm, other (no rubs / murmurs) Gastrointestinal: hypoactive bowel sounds, soft, non-tender, non-distended, other (RLQ & LUQ stomas with colostomy bags) Integumentary: decubitus ulcer (sacral; stage 4 s/p surgical debridement), other (no rash; no cellulitis; poor turgor) Extremities: no cyanosis, pulses normal, no ischemia or petechiae, edema (1+ bilaterally) Neurologic: pupils equal and round, unable to assess, other (encephalopathic) Psychiatric: other (unable to assess) CBC and BMP: 04/03/17 11:40 04/09/17 06:09 ABG, PT/INR, D-dimer: ABG POC ABG pH 7.518 (7.35-7.45) H 03/03/17 20:17 ABG pH 7.450 pH Units (7.350-7.450) 12/05/16 Unknown POC ABG pCO2 28.8 (35-45) L 03/03/17 20:17 ABG pCO2 29.6 mm Hg 12/05/16 Unknown POC ABG pO2 61 (80-105) L 03/03/17 20:17 ABG pO2 75.2 mm Hg (80.0-90.0) L 12/05/16 Unknown POC ABG HCO3 23.4 03/03/17 20:17 POC ABG Total CO2 24 03/03/17 20:17 POC ABG O2 Sat 94 03/03/17 20:17 ABG O2 Saturation 96.8 % (95.0-99.0) 12/05/16 Unknown PT/INR, D-dimer PT 15.4 Sec. (12.2-14.9) H 01/13/17 15:50 INR 1.16 (0.87-1.13) H 01/13/17 15:50 Abnormal lab findings: Abnormal Labs 09/03/16 09/03/16 09/03/16 00:03 00:10 00:10 WBC 13.9 H RBC 5.95 H Hgb Hct 44.0 H MCV 74 L MCH 22 L MCHC RDW 17.5 H Plt Count Lymph % (Auto) [place] % (Auto) Lymph # [place] # Baso # Seg Neutrophils % Seg Neuts % (Manual) Lymphocytes % (Manual) 54.0 H Monocytes % (Manual) Eosinophils % (Manual) Basophils % (Manual) Nucleated RBC % Seg Neutrophils # Seg Neutrophils # Man Lymphocytes # (Manual) 7.5 H Monocytes # (Manual) Eosinophils # (Manual) Basophils # (Manual) PT INR Fibrinogen dRVVT Confirm Interp Factor V Activity POC ABG pH POC ABG pCO2 POC ABG pO2 ABG pO2 ABG HCO3 ABG Base Excess ABG Hemoglobin Oxyhemoglobin Sodium Potassium 2.8 L* Chloride Carbon Dioxide 21 L BUN Creatinine 1.7 H Glucose 159 H POC Glucose 177 H Lactic Acid Calcium Ionized Calcium Phosphorus Magnesium Direct Bilirubin AST ALT Alkaline Phosphatase Lactate Dehydrogenase Troponin T C-Reactive Protein Total Protein Albumin Prealbumin Triglycerides Cholesterol LDL Cholesterol Direct HDL Cholesterol 25-OH Vitamin D Total PTH Intact Urine pH Urine WBC (Auto) Urine Creatinine Urine Total Protein Fluid Total Protein Vancomycin Trough Rheumatoid Factor Complement C4 Miscellaneous Test Crossmatch 09/03/16 09/03/16 09/03/16 12:12 15:07 16:20 WBC RBC Hgb Hct MCV MCH MCHC RDW Plt Count Lymph % (Auto) [place] % (Auto) Lymph # [place] # Baso # Seg Neutrophils % Seg Neuts % (Manual) Lymphocytes % (Manual) Monocytes % (Manual) Eosinophils % (Manual) Basophils % (Manual) Nucleated RBC % Seg Neutrophils # Seg Neutrophils # Man Lymphocytes # (Manual) Monocytes # (Manual) Eosinophils # (Manual) Basophils # (Manual) PT INR Fibrinogen dRVVT Confirm Interp Factor V Activity POC ABG pH 7.452 H POC ABG pCO2 POC ABG pO2 ABG pO2 ABG HCO3 ABG Base Excess ABG Hemoglobin Oxyhemoglobin Sodium Potassium Chloride Carbon Dioxide BUN Creatinine Glucose POC Glucose 178 H Lactic Acid Calcium Ionized Calcium Phosphorus 2.20 L Magnesium 1.60 L Direct Bilirubin AST ALT Alkaline Phosphatase Lactate Dehydrogenase Troponin T C-Reactive Protein Total Protein Albumin Prealbumin Triglycerides Cholesterol LDL Cholesterol Direct HDL Cholesterol 25-OH Vitamin D Total PTH Intact Urine pH Urine WBC (Auto) Urine Creatinine Urine Total Protein Fluid Total Protein Vancomycin Trough Rheumatoid Factor Complement C4 Miscellaneous Test Crossmatch 09/03/16 09/03/16 09/03/16 17:57 17:58 23:50 WBC RBC Hgb Hct MCV MCH MCHC RDW Plt Count Lymph % (Auto) [place] % (Auto) Lymph # [place] # Baso # Seg Neutrophils % Seg Neuts % (Manual) Lymphocytes % (Manual) Monocytes % (Manual) Eosinophils % (Manual) Basophils % (Manual) Nucleated RBC % Seg Neutrophils # Seg Neutrophils # Man Lymphocytes # (Manual) Monocytes # (Manual) Eosinophils # (Manual) Basophils # (Manual) PT INR Fibrinogen dRVVT Confirm Interp Factor V Activity POC ABG pH POC ABG pCO2 POC ABG pO2 ABG pO2 ABG HCO3 ABG Base Excess ABG Hemoglobin Oxyhemoglobin Sodium Potassium Chloride Carbon Dioxide BUN Creatinine Glucose POC Glucose 162 H 145 H Lactic Acid Calcium Ionized Calcium Phosphorus 2.30 L Magnesium Direct Bilirubin AST ALT Alkaline Phosphatase Lactate Dehydrogenase Troponin T C-Reactive Protein Total Protein Albumin Prealbumin Triglycerides Cholesterol LDL Cholesterol Direct HDL Cholesterol 25-OH Vitamin D Total PTH Intact Urine pH Urine WBC (Auto) Urine Creatinine Urine Total Protein Fluid Total Protein Vancomycin Trough Rheumatoid Factor Complement C4 Miscellaneous Test Crossmatch 09/04/16 09/04/16 09/04/16 03:31 03:31 05:42 WBC RBC Hgb 9.7 L D Hct MCV 72 L MCH 23 L MCHC RDW 17.5 H Plt Count Lymph % (Auto) 11.1 L [place] % (Auto) Lymph # [place] # Baso # Seg Neutrophils % 84.3 H Seg Neuts % (Manual) Lymphocytes % (Manual) Monocytes % (Manual) Eosinophils % (Manual) Basophils % (Manual) Nucleated RBC % Seg Neutrophils # 8.9 H Seg Neutrophils # Man Lymphocytes # (Manual) Monocytes # (Manual) Eosinophils # (Manual) Basophils # (Manual) PT INR Fibrinogen dRVVT Confirm Interp Factor V Activity POC ABG pH POC ABG pCO2 POC ABG pO2 ABG pO2 ABG HCO3 ABG Base Excess ABG Hemoglobin Oxyhemoglobin Sodium 135 L Potassium 2.9 L* Chloride 97.2 L Carbon Dioxide 19 L BUN Creatinine 1.7 H Glucose 170 H POC Glucose 152 H Lactic Acid Calcium Ionized Calcium Phosphorus Magnesium Direct Bilirubin AST ALT Alkaline Phosphatase Lactate Dehydrogenase Troponin T C-Reactive Protein Total Protein Albumin Prealbumin Triglycerides 160 H Cholesterol LDL Cholesterol Direct HDL Cholesterol 31 L 25-OH Vitamin D Total PTH Intact Urine pH Urine WBC (Auto) Urine Creatinine Urine Total Protein Fluid Total Protein Vancomycin Trough Rheumatoid Factor Complement C4 Miscellaneous Test Crossmatch 09/04/16 09/04/16 09/04/16 11:34 17:46 23:29 WBC RBC Hgb Hct MCV MCH MCHC RDW Plt Count Lymph % (Auto) [place] % (Auto) Lymph # [place] # Baso # Seg Neutrophils % Seg Neuts % (Manual) Lymphocytes % (Manual) Monocytes % (Manual) Eosinophils % (Manual) Basophils % (Manual) Nucleated RBC % Seg Neutrophils # Seg Neutrophils # Man Lymphocytes # (Manual) Monocytes # (Manual) Eosinophils # (Manual) Basophils # (Manual) PT INR Fibrinogen dRVVT Confirm Interp Factor V Activity POC ABG pH POC ABG pCO2 POC ABG pO2 ABG pO2 ABG HCO3 ABG Base Excess ABG Hemoglobin Oxyhemoglobin Sodium Potassium Chloride Carbon Dioxide BUN Creatinine Glucose POC Glucose 165 H 210 H 139 H Lactic Acid Calcium Ionized Calcium Phosphorus Magnesium Direct Bilirubin AST ALT Alkaline Phosphatase Lactate Dehydrogenase Troponin T C-Reactive Protein Total Protein Albumin Prealbumin Triglycerides Cholesterol LDL Cholesterol Direct HDL Cholesterol 25-OH Vitamin D Total PTH Intact Urine pH Urine WBC (Auto) Urine Creatinine Urine Total Protein Fluid Total Protein Vancomycin Trough Rheumatoid Factor Complement C4 Miscellaneous Test Crossmatch 09/05/16 09/05/16 09/05/16 04:05 04:05 05:38 WBC RBC Hgb Hct MCV 76 L D MCH 23 L MCHC RDW 17.8 H Plt Count Lymph % (Auto) [place] % (Auto) Lymph # [place] # Baso # Seg Neutrophils % Seg Neuts % (Manual) Lymphocytes % (Manual) Monocytes % (Manual) Eosinophils % (Manual) Basophils % (Manual) Nucleated RBC % Seg Neutrophils # Seg Neutrophils # Man Lymphocytes # (Manual) Monocytes # (Manual) Eosinophils # (Manual) Basophils # (Manual) PT INR Fibrinogen dRVVT Confirm Interp Factor V Activity POC ABG pH POC ABG pCO2 POC ABG pO2 ABG pO2 ABG HCO3 ABG Base Excess ABG Hemoglobin Oxyhemoglobin Sodium 134 L Potassium Chloride Carbon Dioxide 18 L BUN Creatinine 1.8 H Glucose 192 H POC Glucose 175 H Lactic Acid Calcium Ionized Calcium Phosphorus Magnesium Direct Bilirubin AST ALT Alkaline Phosphatase Lactate Dehydrogenase Troponin T C-Reactive Protein Total Protein Albumin Prealbumin Triglycerides Cholesterol LDL Cholesterol Direct HDL Cholesterol 25-OH Vitamin D Total PTH Intact Urine pH Urine WBC (Auto) Urine Creatinine Urine Total Protein Fluid Total Protein Vancomycin Trough Rheumatoid Factor Complement C4 Miscellaneous Test Crossmatch 09/05/16 09/05/16 09/05/16 11:38 17:48 23:22 WBC RBC Hgb Hct MCV MCH MCHC RDW Plt Count Lymph % (Auto) [place] % (Auto) Lymph # [place] # Baso # Seg Neutrophils % Seg Neuts % (Manual) Lymphocytes % (Manual) Monocytes % (Manual) Eosinophils % (Manual) Basophils % (Manual) Nucleated RBC % Seg Neutrophils # Seg Neutrophils # Man Lymphocytes # (Manual) Monocytes # (Manual) Eosinophils # (Manual) Basophils # (Manual) PT INR Fibrinogen dRVVT Confirm Interp Factor V Activity POC ABG pH POC ABG pCO2 POC ABG pO2 ABG pO2 ABG HCO3 ABG Base Excess ABG Hemoglobin Oxyhemoglobin Sodium Potassium Chloride Carbon Dioxide BUN Creatinine Glucose POC Glucose 164 H 186 H 195 H Lactic Acid Calcium Ionized Calcium Phosphorus Magnesium Direct Bilirubin AST ALT Alkaline Phosphatase Lactate Dehydrogenase Troponin T C-Reactive Protein Total Protein Albumin Prealbumin Triglycerides Cholesterol LDL Cholesterol Direct HDL Cholesterol 25-OH Vitamin D Total PTH Intact Urine pH Urine WBC (Auto) Urine Creatinine Urine Total Protein Fluid Total Protein Vancomycin Trough Rheumatoid Factor Complement C4 Miscellaneous Test Crossmatch 09/06/16 09/06/16 09/06/16 04:12 05:59 07:32 WBC RBC Hgb Hct MCV MCH MCHC RDW Plt Count Lymph % (Auto) [place] % (Auto) Lymph # [place] # Baso # Seg Neutrophils % Seg Neuts % (Manual) Lymphocytes % (Manual) Monocytes % (Manual) Eosinophils % (Manual) Basophils % (Manual) Nucleated RBC % Seg Neutrophils # Seg Neutrophils # Man Lymphocytes # (Manual) Monocytes # (Manual) Eosinophils # (Manual) Basophils # (Manual) PT INR Fibrinogen dRVVT Confirm Interp Factor V Activity POC ABG pH 7.514 H POC ABG pCO2 29.1 L POC ABG pO2 72 L ABG pO2 ABG HCO3 ABG Base Excess ABG Hemoglobin Oxyhemoglobin Sodium 133 L Potassium 3.4 L Chloride 94.9 L Carbon Dioxide 19 L BUN 30 H Creatinine 2.1 H Glucose 139 H POC Glucose 146 H Lactic Acid Calcium Ionized Calcium Phosphorus Magnesium Direct Bilirubin AST ALT Alkaline Phosphatase Lactate Dehydrogenase Troponin T C-Reactive Protein Total Protein Albumin Prealbumin Triglycerides Cholesterol LDL Cholesterol Direct HDL Cholesterol 25-OH Vitamin D Total PTH Intact Urine pH Urine WBC (Auto) Urine Creatinine Urine Total Protein Fluid Total Protein Vancomycin Trough Rheumatoid Factor Complement C4 Miscellaneous Test Crossmatch 09/06/16 09/06/16 09/06/16 11:57 17:58 19:02 WBC RBC Hgb Hct MCV MCH MCHC RDW Plt Count Lymph % (Auto) [place] % (Auto) Lymph # [place] # Baso # Seg Neutrophils % Seg Neuts % (Manual) Lymphocytes % (Manual) Monocytes % (Manual) Eosinophils % (Manual) Basophils % (Manual) Nucleated RBC % Seg Neutrophils # Seg Neutrophils # Man Lymphocytes # (Manual) Monocytes # (Manual) Eosinophils # (Manual) Basophils # (Manual) PT INR Fibrinogen dRVVT Confirm Interp Factor V Activity POC ABG pH 7.465 H POC ABG pCO2 32.0 L POC ABG pO2 ABG pO2 ABG HCO3 ABG Base Excess ABG Hemoglobin Oxyhemoglobin Sodium Potassium Chloride Carbon Dioxide BUN Creatinine Glucose POC Glucose 165 H 160 H Lactic Acid Calcium Ionized Calcium Phosphorus Magnesium Direct Bilirubin AST ALT Alkaline Phosphatase Lactate Dehydrogenase Troponin T C-Reactive Protein Total Protein Albumin Prealbumin Triglycerides Cholesterol LDL Cholesterol Direct HDL Cholesterol 25-OH Vitamin D Total PTH Intact Urine pH Urine WBC (Auto) Urine Creatinine Urine Total Protein Fluid Total Protein Vancomycin Trough Rheumatoid Factor Complement C4 Miscellaneous Test Crossmatch 09/06/16 09/07/16 09/07/16 23:45 02:47 02:47 WBC RBC Hgb Hct MCV MCH MCHC RDW Plt Count Lymph % (Auto) [place] % (Auto) Lymph # [place] # Baso # Seg Neutrophils % Seg Neuts % (Manual) Lymphocytes % (Manual) Monocytes % (Manual) Eosinophils % (Manual) Basophils % (Manual) Nucleated RBC % Seg Neutrophils # Seg Neutrophils # Man Lymphocytes # (Manual) Monocytes # (Manual) Eosinophils # (Manual) Basophils # (Manual) PT INR Fibrinogen dRVVT Confirm Interp Factor V Activity POC ABG pH POC ABG pCO2 POC ABG pO2 ABG pO2 ABG HCO3 ABG Base Excess ABG Hemoglobin Oxyhemoglobin Sodium Potassium Chloride Carbon Dioxide BUN Creatinine Glucose POC Glucose 204 H Lactic Acid Calcium Ionized Calcium Phosphorus Magnesium Direct Bilirubin AST ALT Alkaline Phosphatase Lactate Dehydrogenase Troponin T C-Reactive Protein Total Protein Albumin Prealbumin Triglycerides Cholesterol LDL Cholesterol Direct HDL Cholesterol 25-OH Vitamin D Total PTH Intact Urine pH Urine WBC (Auto) 68.0 H Urine Creatinine 106.1 H Urine Total Protein Fluid Total Protein Vancomycin Trough Rheumatoid Factor Complement C4 Miscellaneous Test Crossmatch 09/07/16 09/07/16 09/07/16 04:50 06:19 06:39 WBC RBC Hgb Hct MCV MCH MCHC RDW Plt Count Lymph % (Auto) [place] % (Auto) Lymph # [place] # Baso # Seg Neutrophils % Seg Neuts % (Manual) Lymphocytes % (Manual) Monocytes % (Manual) Eosinophils % (Manual) Basophils % (Manual) Nucleated RBC % Seg Neutrophils # Seg Neutrophils # Man Lymphocytes # (Manual) Monocytes # (Manual) Eosinophils # (Manual) Basophils # (Manual) PT INR Fibrinogen dRVVT Confirm Interp Factor V Activity POC ABG pH 7.457 H POC ABG pCO2 32.1 L POC ABG pO2 76 L ABG pO2 ABG HCO3 ABG Base Excess ABG Hemoglobin Oxyhemoglobin Sodium 132 L Potassium Chloride 94.7 L Carbon Dioxide BUN 53 H Creatinine 2.9 H Glucose 151 H POC Glucose 149 H Lactic Acid Calcium Ionized Calcium Phosphorus Magnesium Direct Bilirubin AST ALT Alkaline Phosphatase Lactate Dehydrogenase Troponin T C-Reactive Protein Total Protein Albumin Prealbumin Triglycerides Cholesterol LDL Cholesterol Direct HDL Cholesterol 25-OH Vitamin D Total PTH Intact Urine pH Urine WBC (Auto) Urine Creatinine Urine Total Protein Fluid Total Protein Vancomycin Trough Rheumatoid Factor Complement C4 Miscellaneous Test Crossmatch 09/07/16 09/07/16 09/07/16 09:20 11:43 11:43 WBC 19.4 H RBC Hgb 8.3 L Hct 26.4 L D MCV 72 L D MCH 22 L MCHC RDW 17.9 H Plt Count Lymph % (Auto) 8.5 L [place] % (Auto) Lymph # [place] # 1.0 H Baso # Seg Neutrophils % 85.8 H Seg Neuts % (Manual) Lymphocytes % (Manual) Monocytes % (Manual) Eosinophils % (Manual) Basophils % (Manual) Nucleated RBC % Seg Neutrophils # 16.6 H Seg Neutrophils # Man Lymphocytes # (Manual) Monocytes # (Manual) Eosinophils # (Manual) Basophils # (Manual) PT INR Fibrinogen dRVVT Confirm Interp Factor V Activity POC ABG pH POC ABG pCO2 POC ABG pO2 ABG pO2 ABG HCO3 ABG Base Excess ABG Hemoglobin Oxyhemoglobin Sodium 134 L Potassium Chloride 97.2 L Carbon Dioxide 20 L BUN 58 H Creatinine 2.9 H Glucose 147 H POC Glucose Lactic Acid Calcium Ionized Calcium Phosphorus 2.40 L Magnesium 2.40 H Direct Bilirubin AST ALT Alkaline Phosphatase Lactate Dehydrogenase Troponin T C-Reactive Protein Total Protein 5.8 L Albumin 2.2 L Prealbumin Triglycerides Cholesterol LDL Cholesterol Direct HDL Cholesterol 25-OH Vitamin D Total PTH Intact Urine pH Urine WBC (Auto) Urine Creatinine Urine Total Protein Fluid Total Protein Vancomycin Trough Rheumatoid Factor Complement C4 58 H Miscellaneous Test Crossmatch 09/07/16 09/07/16 09/07/16 11:50 16:00 17:31 WBC RBC Hgb Hct MCV MCH MCHC RDW Plt Count Lymph % (Auto) [place] % (Auto) Lymph # [place] # Baso # Seg Neutrophils % Seg Neuts % (Manual) Lymphocytes % (Manual) Monocytes % (Manual) Eosinophils % (Manual) Basophils % (Manual) Nucleated RBC % Seg Neutrophils # Seg Neutrophils # Man Lymphocytes # (Manual) Monocytes # (Manual) Eosinophils # (Manual) Basophils # (Manual) PT INR Fibrinogen dRVVT Confirm Interp Factor V Activity POC ABG pH POC ABG pCO2 POC ABG pO2 158 H ABG pO2 ABG HCO3 ABG Base Excess ABG Hemoglobin Oxyhemoglobin Sodium Potassium Chloride Carbon Dioxide BUN Creatinine Glucose POC Glucose 175 H Lactic Acid Calcium Ionized Calcium Phosphorus Magnesium Direct Bilirubin AST ALT Alkaline Phosphatase Lactate Dehydrogenase Troponin T C-Reactive Protein Total Protein Albumin Prealbumin Triglycerides Cholesterol LDL Cholesterol Direct HDL Cholesterol 25-OH Vitamin D Total PTH Intact Urine pH Urine WBC (Auto) Urine Creatinine 66.3 H Urine Total Protein Fluid Total Protein Vancomycin Trough Rheumatoid Factor Complement C4 Miscellaneous Test Crossmatch 09/07/16 09/08/16 09/08/16 23:50 05:46 06:18 WBC 17.8 H RBC 3.58 L Hgb 8.1 L Hct 25.5 L MCV 71 L MCH 23 L MCHC RDW 18.4 H Plt Count Lymph % (Auto) [place] % (Auto) Lymph # [place] # Baso # Seg Neutrophils % Seg Neuts % (Manual) 92.0 H Lymphocytes % (Manual) 6.0 L Monocytes % (Manual) Eosinophils % (Manual) Basophils % (Manual) Nucleated RBC % Seg Neutrophils # Seg Neutrophils # Man 16.4 H Lymphocytes # (Manual) 1.1 L Monocytes # (Manual) Eosinophils # (Manual) Basophils # (Manual) PT INR Fibrinogen dRVVT Confirm Interp Factor V Activity POC ABG pH POC ABG pCO2 34.3 L POC ABG pO2 71 L ABG pO2 ABG HCO3 ABG Base Excess ABG Hemoglobin Oxyhemoglobin Sodium Potassium Chloride Carbon Dioxide BUN Creatinine Glucose POC Glucose 216 H Lactic Acid Calcium Ionized Calcium Phosphorus Magnesium Direct Bilirubin AST ALT Alkaline Phosphatase Lactate Dehydrogenase Troponin T C-Reactive Protein Total Protein Albumin Prealbumin Triglycerides Cholesterol LDL Cholesterol Direct HDL Cholesterol 25-OH Vitamin D Total PTH Intact Urine pH Urine WBC (Auto) Urine Creatinine Urine Total Protein Fluid Total Protein Vancomycin Trough Rheumatoid Factor Complement C4 Miscellaneous Test Crossmatch 09/08/16 09/08/16 09/08/16 06:18 06:51 10:55 WBC RBC Hgb Hct MCV MCH MCHC RDW Plt Count Lymph % (Auto) [place] % (Auto) Lymph # [place] # Baso # Seg Neutrophils % Seg Neuts % (Manual) Lymphocytes % (Manual) Monocytes % (Manual) Eosinophils % (Manual) Basophils % (Manual) Nucleated RBC % Seg Neutrophils # Seg Neutrophils # Man Lymphocytes # (Manual) Monocytes # (Manual) Eosinophils # (Manual) Basophils # (Manual) PT INR Fibrinogen dRVVT Confirm Interp Factor V Activity POC ABG pH POC ABG pCO2 POC ABG pO2 ABG pO2 ABG HCO3 ABG Base Excess ABG Hemoglobin Oxyhemoglobin Sodium 133 L Potassium Chloride 96.9 L Carbon Dioxide 20 L BUN 63 H Creatinine 2.7 H Glucose 195 H POC Glucose 204 H 169 H Lactic Acid Calcium Ionized Calcium Phosphorus Magnesium Direct Bilirubin AST ALT Alkaline Phosphatase Lactate Dehydrogenase Troponin T C-Reactive Protein Total Protein Albumin Prealbumin Triglycerides Cholesterol LDL Cholesterol Direct HDL Cholesterol 25-OH Vitamin D Total PTH Intact Urine pH Urine WBC (Auto) Urine Creatinine Urine Total Protein Fluid Total Protein Vancomycin Trough Rheumatoid Factor Complement C4 Miscellaneous Test Crossmatch 09/08/16 09/08/16 09/08/16 11:48 11:48 11:48 WBC RBC Hgb Hct MCV MCH MCHC RDW Plt Count Lymph % (Auto) [place] % (Auto) Lymph # [place] # Baso # Seg Neutrophils % Seg Neuts % (Manual) Lymphocytes % (Manual) Monocytes % (Manual) Eosinophils % (Manual) Basophils % (Manual) Nucleated RBC % Seg Neutrophils # Seg Neutrophils # Man Lymphocytes # (Manual) Monocytes # (Manual) Eosinophils # (Manual) Basophils # (Manual) PT INR Fibrinogen 750 H dRVVT Confirm Interp Factor V Activity POC ABG pH POC ABG pCO2 POC ABG pO2 ABG pO2 ABG HCO3 ABG Base Excess ABG Hemoglobin Oxyhemoglobin Sodium Potassium Chloride Carbon Dioxide BUN Creatinine Glucose POC Glucose Lactic Acid Calcium Ionized Calcium Phosphorus Magnesium Direct Bilirubin AST ALT Alkaline Phosphatase Lactate Dehydrogenase Troponin T C-Reactive Protein 15.70 H Total Protein Albumin Prealbumin Triglycerides Cholesterol LDL Cholesterol Direct HDL Cholesterol 25-OH Vitamin D Total PTH Intact Urine pH Urine WBC (Auto) Urine Creatinine Urine Total Protein Fluid Total Protein Vancomycin Trough Rheumatoid Factor 24 H Complement C4 Miscellaneous Test Crossmatch 09/08/16 09/08/16 09/09/16 15:35 18:25 00:24 WBC RBC Hgb Hct MCV MCH MCHC RDW Plt Count Lymph % (Auto) [place] % (Auto) Lymph # [place] # Baso # Seg Neutrophils % Seg Neuts % (Manual) Lymphocytes % (Manual) Monocytes % (Manual) Eosinophils % (Manual) Basophils % (Manual) Nucleated RBC % Seg Neutrophils # Seg Neutrophils # Man Lymphocytes # (Manual) Monocytes # (Manual) Eosinophils # (Manual) Basophils # (Manual) PT INR Fibrinogen dRVVT Confirm Interp Factor V Activity 182 H POC ABG pH POC ABG pCO2 POC ABG pO2 ABG pO2 ABG HCO3 ABG Base Excess ABG Hemoglobin Oxyhemoglobin Sodium Potassium Chloride Carbon Dioxide BUN Creatinine Glucose POC Glucose 184 H 216 H Lactic Acid Calcium Ionized Calcium Phosphorus Magnesium Direct Bilirubin AST ALT Alkaline Phosphatase Lactate Dehydrogenase Troponin T C-Reactive Protein Total Protein Albumin Prealbumin Triglycerides Cholesterol LDL Cholesterol Direct HDL Cholesterol 25-OH Vitamin D Total PTH Intact Urine pH Urine WBC (Auto) Urine Creatinine Urine Total Protein Fluid Total Protein Vancomycin Trough Rheumatoid Factor Complement C4 Miscellaneous Test Crossmatch 09/09/16 09/09/16 09/09/16 03:00 03:00 04:04 WBC 27.9 H RBC Hgb 8.7 L Hct 28.1 L MCV 72 L MCH 22 L MCHC RDW 18.4 H Plt Count 485 H Lymph % (Auto) [place] % (Auto) Lymph # [place] # Baso # Seg Neutrophils % Seg Neuts % (Manual) 77.0 H Lymphocytes % (Manual) 9.0 L Monocytes % (Manual) Eosinophils % (Manual) Basophils % (Manual) Nucleated RBC % Seg Neutrophils # Seg Neutrophils # Man 21.5 H Lymphocytes # (Manual) Monocytes # (Manual) 2.0 H Eosinophils # (Manual) Basophils # (Manual) PT INR Fibrinogen dRVVT Confirm Interp Factor V Activity POC ABG pH POC ABG pCO2 POC ABG pO2 121 H ABG pO2 ABG HCO3 ABG Base Excess ABG Hemoglobin Oxyhemoglobin Sodium 135 L Potassium Chloride 96.3 L Carbon Dioxide 21 L BUN 83 H Creatinine 3.0 H Glucose 135 H POC Glucose Lactic Acid Calcium Ionized Calcium Phosphorus Magnesium Direct Bilirubin AST ALT Alkaline Phosphatase Lactate Dehydrogenase Troponin T C-Reactive Protein Total Protein Albumin Prealbumin Triglycerides Cholesterol LDL Cholesterol Direct HDL Cholesterol 25-OH Vitamin D Total PTH Intact Urine pH Urine WBC (Auto) Urine Creatinine Urine Total Protein Fluid Total Protein Vancomycin Trough Rheumatoid Factor Complement C4 Miscellaneous Test Crossmatch 09/09/16 09/09/16 09/09/16 05:41 11:55 14:13 WBC RBC Hgb Hct MCV MCH MCHC RDW Plt Count Lymph % (Auto) [place] % (Auto) Lymph # [place] # Baso # Seg Neutrophils % Seg Neuts % (Manual) Lymphocytes % (Manual) Monocytes % (Manual) Eosinophils % (Manual) Basophils % (Manual) Nucleated RBC % Seg Neutrophils # Seg Neutrophils # Man Lymphocytes # (Manual) Monocytes # (Manual) Eosinophils # (Manual) Basophils # (Manual) PT INR Fibrinogen dRVVT Confirm Interp Factor V Activity POC ABG pH POC ABG pCO2 POC ABG pO2 ABG pO2 ABG HCO3 ABG Base Excess ABG Hemoglobin Oxyhemoglobin Sodium Potassium Chloride Carbon Dioxide BUN Creatinine Glucose POC Glucose 155 H 186 H Lactic Acid Calcium Ionized Calcium Phosphorus Magnesium Direct Bilirubin AST ALT Alkaline Phosphatase Lactate Dehydrogenase Troponin T C-Reactive Protein Total Protein Albumin Prealbumin Triglycerides Cholesterol LDL Cholesterol Direct HDL Cholesterol 25-OH Vitamin D Total PTH Intact Urine pH Urine WBC (Auto) 25.0 H Urine Creatinine Urine Total Protein Fluid Total Protein Vancomycin Trough Rheumatoid Factor Complement C4 Miscellaneous Test Crossmatch 09/09/16 09/09/16 09/10/16 17:33 23:13 05:09 WBC RBC Hgb Hct MCV MCH MCHC RDW Plt Count Lymph % (Auto) [place] % (Auto) Lymph # [place] # Baso # Seg Neutrophils % Seg Neuts % (Manual) Lymphocytes % (Manual) Monocytes % (Manual) Eosinophils % (Manual) Basophils % (Manual) Nucleated RBC % Seg Neutrophils # Seg Neutrophils # Man Lymphocytes # (Manual) Monocytes # (Manual) Eosinophils # (Manual) Basophils # (Manual) PT INR Fibrinogen dRVVT Confirm Interp Factor V Activity POC ABG pH POC ABG pCO2 POC ABG pO2 74 L ABG pO2 ABG HCO3 ABG Base Excess ABG Hemoglobin Oxyhemoglobin Sodium Potassium Chloride Carbon Dioxide BUN Creatinine Glucose POC Glucose 211 H 215 H Lactic Acid Calcium Ionized Calcium Phosphorus Magnesium Direct Bilirubin AST ALT Alkaline Phosphatase Lactate Dehydrogenase Troponin T C-Reactive Protein Total Protein Albumin Prealbumin Triglycerides Cholesterol LDL Cholesterol Direct HDL Cholesterol 25-OH Vitamin D Total PTH Intact Urine pH Urine WBC (Auto) Urine Creatinine Urine Total Protein Fluid Total Protein Vancomycin Trough Rheumatoid Factor Complement C4 Miscellaneous Test Crossmatch 09/10/16 09/10/16 09/10/16 05:17 05:17 11:31 WBC 15.8 H RBC 3.25 L Hgb 7.3 L Hct 22.9 L MCV 71 L MCH 23 L MCHC RDW 18.4 H Plt Count Lymph % (Auto) [place] % (Auto) Lymph # [place] # Baso # Seg Neutrophils % Seg Neuts % (Manual) 91.0 H Lymphocytes % (Manual) 4.0 L Monocytes % (Manual) Eosinophils % (Manual) Basophils % (Manual) Nucleated RBC % Seg Neutrophils # Seg Neutrophils # Man 14.4 H Lymphocytes # (Manual) 0.6 L Monocytes # (Manual) Eosinophils # (Manual) Basophils # (Manual) PT INR Fibrinogen dRVVT Confirm Interp Factor V Activity POC ABG pH POC ABG pCO2 POC ABG pO2 ABG pO2 ABG HCO3 ABG Base Excess ABG Hemoglobin Oxyhemoglobin Sodium Potassium Chloride Carbon Dioxide 21 L BUN 93 H Creatinine 2.9 H Glucose 146 H POC Glucose 188 H Lactic Acid Calcium 8.1 L Ionized Calcium Phosphorus Magnesium Direct Bilirubin AST ALT Alkaline Phosphatase Lactate Dehydrogenase Troponin T C-Reactive Protein Total Protein Albumin Prealbumin Triglycerides Cholesterol LDL Cholesterol Direct HDL Cholesterol 25-OH Vitamin D Total PTH Intact Urine pH Urine WBC (Auto) Urine Creatinine Urine Total Protein Fluid Total Protein Vancomycin Trough Rheumatoid Factor Complement C4 Miscellaneous Test Crossmatch 09/10/16 09/10/16 09/10/16 13:17 17:20 23:32 WBC RBC Hgb Hct MCV MCH MCHC RDW Plt Count Lymph % (Auto) [place] % (Auto) Lymph # [place] # Baso # Seg Neutrophils % Seg Neuts % (Manual) Lymphocytes % (Manual) Monocytes % (Manual) Eosinophils % (Manual) Basophils % (Manual) Nucleated RBC % Seg Neutrophils # Seg Neutrophils # Man Lymphocytes # (Manual) Monocytes # (Manual) Eosinophils # (Manual) Basophils # (Manual) PT INR Fibrinogen dRVVT Confirm Interp Factor V Activity POC ABG pH POC ABG pCO2 POC ABG pO2 ABG pO2 ABG HCO3 ABG Base Excess ABG Hemoglobin Oxyhemoglobin Sodium Potassium Chloride Carbon Dioxide BUN Creatinine Glucose POC Glucose 199 H 186 H Lactic Acid Calcium Ionized Calcium Phosphorus Magnesium Direct Bilirubin AST ALT Alkaline Phosphatase Lactate Dehydrogenase Troponin T C-Reactive Protein Total Protein Albumin Prealbumin Triglycerides Cholesterol LDL Cholesterol Direct HDL Cholesterol 25-OH Vitamin D Total PTH Intact Urine pH Urine WBC (Auto) Urine Creatinine Urine Total Protein Fluid Total Protein Vancomycin Trough Rheumatoid Factor Complement C4 Miscellaneous Test Crossmatch See Detail 09/11/16 09/11/16 09/11/16 05:10 05:10 05:17 WBC 28.4 H RBC Hgb 9.2 L Hct 29.3 L D MCV 73 L MCH 23 L MCHC RDW 18.9 H Plt Count 452 H Lymph % (Auto) [place] % (Auto) Lymph # [place] # Baso # Seg Neutrophils % Seg Neuts % (Manual) 89.5 H Lymphocytes % (Manual) 2.0 L Monocytes % (Manual) Eosinophils % (Manual) Basophils % (Manual) Nucleated RBC % Seg Neutrophils # Seg Neutrophils # Man 25.4 H Lymphocytes # (Manual) 0.6 L Monocytes # (Manual) 1.3 H Eosinophils # (Manual) Basophils # (Manual) PT INR Fibrinogen dRVVT Confirm Interp Factor V Activity POC ABG pH POC ABG pCO2 POC ABG pO2 ABG pO2 ABG HCO3 ABG Base Excess ABG Hemoglobin Oxyhemoglobin Sodium 136 L Potassium Chloride Carbon Dioxide 18 L BUN 107 H Creatinine 2.6 H Glucose 187 H POC Glucose 230 H Lactic Acid Calcium 8.3 L Ionized Calcium Phosphorus Magnesium Direct Bilirubin AST ALT Alkaline Phosphatase Lactate Dehydrogenase Troponin T C-Reactive Protein Total Protein Albumin Prealbumin Triglycerides Cholesterol LDL Cholesterol Direct HDL Cholesterol 25-OH Vitamin D Total PTH Intact Urine pH Urine WBC (Auto) Urine Creatinine Urine Total Protein Fluid Total Protein Vancomycin Trough Rheumatoid Factor Complement C4 Miscellaneous Test Crossmatch 09/11/16 09/11/16 09/11/16 05:55 12:02 17:32 WBC RBC Hgb Hct MCV MCH MCHC RDW Plt Count Lymph % (Auto) [place] % (Auto) Lymph # [place] # Baso # Seg Neutrophils % Seg Neuts % (Manual) Lymphocytes % (Manual) Monocytes % (Manual) Eosinophils % (Manual) Basophils % (Manual) Nucleated RBC % Seg Neutrophils # Seg Neutrophils # Man Lymphocytes # (Manual) Monocytes # (Manual) Eosinophils # (Manual) Basophils # (Manual) PT INR Fibrinogen dRVVT Confirm Interp Factor V Activity POC ABG pH POC ABG pCO2 33.8 L POC ABG pO2 ABG pO2 ABG HCO3 ABG Base Excess ABG Hemoglobin Oxyhemoglobin Sodium Potassium Chloride Carbon Dioxide BUN Creatinine Glucose POC Glucose 191 H 239 H Lactic Acid Calcium Ionized Calcium Phosphorus Magnesium Direct Bilirubin AST ALT Alkaline Phosphatase Lactate Dehydrogenase Troponin T C-Reactive Protein Total Protein Albumin Prealbumin Triglycerides Cholesterol LDL Cholesterol Direct HDL Cholesterol 25-OH Vitamin D Total PTH Intact Urine pH Urine WBC (Auto) Urine Creatinine Urine Total Protein Fluid Total Protein Vancomycin Trough Rheumatoid Factor Complement C4 Miscellaneous Test Crossmatch 09/11/16 09/12/16 09/12/16 23:52 05:09 05:32 WBC RBC Hgb Hct MCV MCH MCHC RDW Plt Count Lymph % (Auto) [place] % (Auto) Lymph # [place] # Baso # Seg Neutrophils % Seg Neuts % (Manual) Lymphocytes % (Manual) Monocytes % (Manual) Eosinophils % (Manual) Basophils % (Manual) Nucleated RBC % Seg Neutrophils # Seg Neutrophils # Man Lymphocytes # (Manual) Monocytes # (Manual) Eosinophils # (Manual) Basophils # (Manual) PT INR Fibrinogen dRVVT Confirm Interp Factor V Activity POC ABG pH POC ABG pCO2 34.6 L POC ABG pO2 ABG pO2 ABG HCO3 ABG Base Excess ABG Hemoglobin Oxyhemoglobin Sodium Potassium Chloride Carbon Dioxide BUN Creatinine Glucose POC Glucose 265 H 184 H Lactic Acid Calcium Ionized Calcium Phosphorus Magnesium Direct Bilirubin AST ALT Alkaline Phosphatase Lactate Dehydrogenase Troponin T C-Reactive Protein Total Protein Albumin Prealbumin Triglycerides Cholesterol LDL Cholesterol Direct HDL Cholesterol 25-OH Vitamin D Total PTH Intact Urine pH Urine WBC (Auto) Urine Creatinine Urine Total Protein Fluid Total Protein Vancomycin Trough Rheumatoid Factor Complement C4 Miscellaneous Test Crossmatch 09/12/16 09/12/16 09/12/16 06:45 06:45 07:22 WBC 31.7 H RBC 3.54 L Hgb 8.3 L Hct 25.9 L MCV 73 L MCH 23 L MCHC RDW 18.9 H Plt Count Lymph % (Auto) [place] % (Auto) Lymph # [place] # Baso # Seg Neutrophils % Seg Neuts % (Manual) 88.5 H Lymphocytes % (Manual) 4.5 L Monocytes % (Manual) Eosinophils % (Manual) Basophils % (Manual) Nucleated RBC % Seg Neutrophils # Seg Neutrophils # Man 28.1 H Lymphocytes # (Manual) Monocytes # (Manual) 1.0 H Eosinophils # (Manual) Basophils # (Manual) PT INR Fibrinogen dRVVT Confirm Interp Factor V Activity POC ABG pH POC ABG pCO2 POC ABG pO2 ABG pO2 ABG HCO3 ABG Base Excess ABG Hemoglobin Oxyhemoglobin Sodium Potassium Chloride Carbon Dioxide 20 L BUN 115 H Creatinine 2.7 H Glucose 165 H POC Glucose Lactic Acid Calcium 8.0 L Ionized Calcium Phosphorus Magnesium Direct Bilirubin AST ALT Alkaline Phosphatase Lactate Dehydrogenase Troponin T C-Reactive Protein Total Protein Albumin Prealbumin Triglycerides 217 H Cholesterol LDL Cholesterol Direct HDL Cholesterol 25-OH Vitamin D Total PTH Intact Urine pH Urine WBC (Auto) Urine Creatinine Urine Total Protein Fluid Total Protein Vancomycin Trough Rheumatoid Factor Complement C4 Miscellaneous Test Crossmatch 09/12/16 09/12/16 09/12/16 07:22 09:59 12:21 WBC RBC Hgb Hct MCV MCH MCHC RDW Plt Count Lymph % (Auto) [place] % (Auto) Lymph # [place] # Baso # Seg Neutrophils % Seg Neuts % (Manual) Lymphocytes % (Manual) Monocytes % (Manual) Eosinophils % (Manual) Basophils % (Manual) Nucleated RBC % Seg Neutrophils # Seg Neutrophils # Man Lymphocytes # (Manual) Monocytes # (Manual) Eosinophils # (Manual) Basophils # (Manual) PT INR Fibrinogen dRVVT Confirm Interp Positive H Factor V Activity POC ABG pH POC ABG pCO2 POC ABG pO2 ABG pO2 ABG HCO3 ABG Base Excess ABG Hemoglobin Oxyhemoglobin Sodium Potassium Chloride Carbon Dioxide BUN Creatinine Glucose POC Glucose 224 H Lactic Acid Calcium Ionized Calcium Phosphorus Magnesium Direct Bilirubin AST ALT Alkaline Phosphatase Lactate Dehydrogenase Troponin T C-Reactive Protein 1.70 H Total Protein Albumin Prealbumin Triglycerides Cholesterol LDL Cholesterol Direct HDL Cholesterol 25-OH Vitamin D Total PTH Intact Urine pH Urine WBC (Auto) Urine Creatinine Urine Total Protein Fluid Total Protein Vancomycin Trough Rheumatoid Factor Complement C4 Miscellaneous Test Crossmatch 09/12/16 09/12/16 09/13/16 16:51 23:28 04:00 WBC 45.0 H* RBC Hgb 9.4 L Hct MCV 75 L MCH 23 L MCHC RDW 19.0 H Plt Count 470 H Lymph % (Auto) [place] % (Auto) Lymph # [place] # Baso # Seg Neutrophils % Seg Neuts % (Manual) 89.0 H Lymphocytes % (Manual) 5.0 L Monocytes % (Manual) Eosinophils % (Manual) Basophils % (Manual) Nucleated RBC % Seg Neutrophils # Seg Neutrophils # Man 40.1 H Lymphocytes # (Manual) Monocytes # (Manual) Eosinophils # (Manual) Basophils # (Manual) PT INR Fibrinogen dRVVT Confirm Interp Factor V Activity POC ABG pH POC ABG pCO2 POC ABG pO2 ABG pO2 ABG HCO3 ABG Base Excess ABG Hemoglobin Oxyhemoglobin Sodium Potassium Chloride Carbon Dioxide BUN Creatinine Glucose POC Glucose 169 H 150 H Lactic Acid Calcium Ionized Calcium Phosphorus Magnesium Direct Bilirubin AST ALT Alkaline Phosphatase Lactate Dehydrogenase Troponin T C-Reactive Protein Total Protein Albumin Prealbumin Triglycerides Cholesterol LDL Cholesterol Direct HDL Cholesterol 25-OH Vitamin D Total PTH Intact Urine pH Urine WBC (Auto) Urine Creatinine Urine Total Protein Fluid Total Protein Vancomycin Trough Rheumatoid Factor Complement C4 Miscellaneous Test Crossmatch 09/13/16 09/13/16 09/13/16 04:00 11:26 17:31 WBC RBC Hgb Hct MCV MCH MCHC RDW Plt Count Lymph % (Auto) [place] % (Auto) Lymph # [place] # Baso # Seg Neutrophils % Seg Neuts % (Manual) Lymphocytes % (Manual) Monocytes % (Manual) Eosinophils % (Manual) Basophils % (Manual) Nucleated RBC % Seg Neutrophils # Seg Neutrophils # Man Lymphocytes # (Manual) Monocytes # (Manual) Eosinophils # (Manual) Basophils # (Manual) PT INR Fibrinogen dRVVT Confirm Interp Factor V Activity POC ABG pH POC ABG pCO2 POC ABG pO2 ABG pO2 ABG HCO3 ABG Base Excess ABG Hemoglobin Oxyhemoglobin Sodium Potassium Chloride Carbon Dioxide 20 L BUN 116 H Creatinine 3.0 H Glucose 172 H POC Glucose 140 H 183 H Lactic Acid Calcium Ionized Calcium Phosphorus Magnesium Direct Bilirubin AST ALT Alkaline Phosphatase Lactate Dehydrogenase Troponin T C-Reactive Protein Total Protein 6.2 L Albumin 2.9 L Prealbumin Triglycerides Cholesterol LDL Cholesterol Direct HDL Cholesterol 25-OH Vitamin D Total PTH Intact Urine pH Urine WBC (Auto) Urine Creatinine Urine Total Protein Fluid Total Protein Vancomycin Trough Rheumatoid Factor Complement C4 Miscellaneous Test Crossmatch 09/13/16 09/14/16 09/14/16 23:23 04:06 04:07 WBC 29.4 H RBC Hgb 8.9 L Hct 27.3 L MCV 75 L MCH 24 L MCHC RDW 19.1 H Plt Count Lymph % (Auto) [place] % (Auto) Lymph # [place] # Baso # Seg Neutrophils % Seg Neuts % (Manual) 84.0 H Lymphocytes % (Manual) 6.0 L Monocytes % (Manual) 9.0 H Eosinophils % (Manual) Basophils % (Manual) Nucleated RBC % Seg Neutrophils # Seg Neutrophils # Man 24.7 H Lymphocytes # (Manual) Monocytes # (Manual) 2.6 H Eosinophils # (Manual) Basophils # (Manual) PT INR Fibrinogen dRVVT Confirm Interp Factor V Activity POC ABG pH 7.342 L POC ABG pCO2 POC ABG pO2 116 H ABG pO2 ABG HCO3 ABG Base Excess ABG Hemoglobin Oxyhemoglobin Sodium Potassium Chloride Carbon Dioxide BUN Creatinine Glucose POC Glucose 154 H Lactic Acid Calcium Ionized Calcium Phosphorus Magnesium Direct Bilirubin AST ALT Alkaline Phosphatase Lactate Dehydrogenase Troponin T C-Reactive Protein Total Protein Albumin Prealbumin Triglycerides Cholesterol LDL Cholesterol Direct HDL Cholesterol 25-OH Vitamin D Total PTH Intact Urine pH Urine WBC (Auto) Urine Creatinine Urine Total Protein Fluid Total Protein Vancomycin Trough Rheumatoid Factor Complement C4 Miscellaneous Test Crossmatch 09/14/16 09/14/16 09/14/16 04:07 05:29 12:19 WBC RBC Hgb Hct MCV MCH MCHC RDW Plt Count Lymph % (Auto) [place] % (Auto) Lymph # [place] # Baso # Seg Neutrophils % Seg Neuts % (Manual) Lymphocytes % (Manual) Monocytes % (Manual) Eosinophils % (Manual) Basophils % (Manual) Nucleated RBC % Seg Neutrophils # Seg Neutrophils # Man Lymphocytes # (Manual) Monocytes # (Manual) Eosinophils # (Manual) Basophils # (Manual) PT INR Fibrinogen dRVVT Confirm Interp Factor V Activity POC ABG pH POC ABG pCO2 POC ABG pO2 ABG pO2 ABG HCO3 ABG Base Excess ABG Hemoglobin Oxyhemoglobin Sodium 136 L Potassium Chloride Carbon Dioxide 18 L BUN 121 H Creatinine 2.8 H Glucose 214 H POC Glucose 239 H 181 H Lactic Acid Calcium Ionized Calcium Phosphorus Magnesium Direct Bilirubin AST ALT Alkaline Phosphatase Lactate Dehydrogenase Troponin T C-Reactive Protein Total Protein Albumin Prealbumin Triglycerides Cholesterol LDL Cholesterol Direct HDL Cholesterol 25-OH Vitamin D Total PTH Intact Urine pH Urine WBC (Auto) Urine Creatinine Urine Total Protein Fluid Total Protein Vancomycin Trough Rheumatoid Factor Complement C4 Miscellaneous Test Crossmatch 09/14/16 09/14/16 09/15/16 18:12 23:37 05:00 WBC 26.1 H RBC 3.05 L Hgb 7.2 L Hct 22.9 L MCV 75 L MCH 24 L MCHC RDW 19.0 H Plt Count Lymph % (Auto) [place] % (Auto) Lymph # [place] # Baso # Seg Neutrophils % Seg Neuts % (Manual) Lymphocytes % (Manual) Monocytes % (Manual) Eosinophils % (Manual) Basophils % (Manual) Nucleated RBC % Seg Neutrophils # Seg Neutrophils # Man Lymphocytes # (Manual) Monocytes # (Manual) Eosinophils # (Manual) Basophils # (Manual) PT INR Fibrinogen dRVVT Confirm Interp Factor V Activity POC ABG pH POC ABG pCO2 POC ABG pO2 ABG pO2 ABG HCO3 ABG Base Excess ABG Hemoglobin Oxyhemoglobin Sodium Potassium Chloride Carbon Dioxide BUN Creatinine Glucose POC Glucose 266 H 154 H Lactic Acid Calcium Ionized Calcium Phosphorus Magnesium Direct Bilirubin AST ALT Alkaline Phosphatase Lactate Dehydrogenase Troponin T C-Reactive Protein Total Protein Albumin Prealbumin Triglycerides Cholesterol LDL Cholesterol Direct HDL Cholesterol 25-OH Vitamin D Total PTH Intact Urine pH Urine WBC (Auto) Urine Creatinine Urine Total Protein Fluid Total Protein Vancomycin Trough Rheumatoid Factor Complement C4 Miscellaneous Test Crossmatch 09/15/16 09/15/16 09/15/16 05:00 05:17 12:45 WBC RBC Hgb Hct MCV MCH MCHC RDW Plt Count Lymph % (Auto) [place] % (Auto) Lymph # [place] # Baso # Seg Neutrophils % Seg Neuts % (Manual) Lymphocytes % (Manual) Monocytes % (Manual) Eosinophils % (Manual) Basophils % (Manual) Nucleated RBC % Seg Neutrophils # Seg Neutrophils # Man Lymphocytes # (Manual) Monocytes # (Manual) Eosinophils # (Manual) Basophils # (Manual) PT INR Fibrinogen dRVVT Confirm Interp Factor V Activity POC ABG pH POC ABG pCO2 POC ABG pO2 ABG pO2 ABG HCO3 ABG Base Excess ABG Hemoglobin Oxyhemoglobin Sodium Potassium 5.2 H Chloride Carbon Dioxide 18 L BUN 139 H Creatinine 3.7 H Glucose 227 H POC Glucose 226 H 244 H Lactic Acid Calcium 8.3 L Ionized Calcium Phosphorus Magnesium Direct Bilirubin AST ALT Alkaline Phosphatase Lactate Dehydrogenase Troponin T C-Reactive Protein Total Protein Albumin Prealbumin Triglycerides Cholesterol LDL Cholesterol Direct HDL Cholesterol 25-OH Vitamin D Total PTH Intact Urine pH Urine WBC (Auto) Urine Creatinine Urine Total Protein Fluid Total Protein Vancomycin Trough Rheumatoid Factor Complement C4 Miscellaneous Test Crossmatch 09/15/16 09/15/16 09/15/16 14:32 17:33 23:35 WBC RBC Hgb Hct MCV MCH MCHC RDW Plt Count Lymph % (Auto) [place] % (Auto) Lymph # [place] # Baso # Seg Neutrophils % Seg Neuts % (Manual) Lymphocytes % (Manual) Monocytes % (Manual) Eosinophils % (Manual) Basophils % (Manual) Nucleated RBC % Seg Neutrophils # Seg Neutrophils # Man Lymphocytes # (Manual) Monocytes # (Manual) Eosinophils # (Manual) Basophils # (Manual) PT INR Fibrinogen dRVVT Confirm Interp Factor V Activity POC ABG pH POC ABG pCO2 27.7 L POC ABG pO2 120 H ABG pO2 ABG HCO3 ABG Base Excess ABG Hemoglobin Oxyhemoglobin Sodium Potassium Chloride Carbon Dioxide BUN Creatinine Glucose POC Glucose 232 H 167 H Lactic Acid Calcium Ionized Calcium Phosphorus Magnesium Direct Bilirubin AST ALT Alkaline Phosphatase Lactate Dehydrogenase Troponin T C-Reactive Protein Total Protein Albumin Prealbumin Triglycerides Cholesterol LDL Cholesterol Direct HDL Cholesterol 25-OH Vitamin D Total PTH Intact Urine pH Urine WBC (Auto) Urine Creatinine Urine Total Protein Fluid Total Protein Vancomycin Trough Rheumatoid Factor Complement C4 Miscellaneous Test Crossmatch 09/16/16 09/16/16 09/16/16 03:58 10:27 10:27 WBC 19.0 H RBC 2.77 L Hgb 6.5 L Hct 20.9 L MCV 76 L MCH 23 L MCHC RDW 19.3 H Plt Count Lymph % (Auto) 11.0 L [place] % (Auto) Lymph # [place] # 1.1 H Baso # Seg Neutrophils % 82.5 H Seg Neuts % (Manual) Lymphocytes % (Manual) Monocytes % (Manual) Eosinophils % (Manual) Basophils % (Manual) Nucleated RBC % Seg Neutrophils # 15.7 H Seg Neutrophils # Man Lymphocytes # (Manual) Monocytes # (Manual) Eosinophils # (Manual) Basophils # (Manual) PT INR Fibrinogen dRVVT Confirm Interp Factor V Activity POC ABG pH POC ABG pCO2 POC ABG pO2 ABG pO2 ABG HCO3 ABG Base Excess ABG Hemoglobin Oxyhemoglobin Sodium Potassium Chloride 109.3 H Carbon Dioxide 18 L BUN 139 H Creatinine 4.1 H Glucose 144 H POC Glucose 146 H Lactic Acid Calcium 8.1 L Ionized Calcium Phosphorus Magnesium Direct Bilirubin AST ALT Alkaline Phosphatase Lactate Dehydrogenase Troponin T C-Reactive Protein Total Protein Albumin Prealbumin Triglycerides Cholesterol LDL Cholesterol Direct HDL Cholesterol 25-OH Vitamin D Total PTH Intact Urine pH Urine WBC (Auto) Urine Creatinine Urine Total Protein Fluid Total Protein Vancomycin Trough Rheumatoid Factor Complement C4 Miscellaneous Test Crossmatch 09/16/16 09/16/16 09/16/16 12:04 12:10 13:55 WBC RBC Hgb Hct MCV MCH MCHC RDW Plt Count Lymph % (Auto) [place] % (Auto) Lymph # [place] # Baso # Seg Neutrophils % Seg Neuts % (Manual) Lymphocytes % (Manual) Monocytes % (Manual) Eosinophils % (Manual) Basophils % (Manual) Nucleated RBC % Seg Neutrophils # Seg Neutrophils # Man Lymphocytes # (Manual) Monocytes # (Manual) Eosinophils # (Manual) Basophils # (Manual) PT INR Fibrinogen dRVVT Confirm Interp Factor V Activity POC ABG pH POC ABG pCO2 32.9 L POC ABG pO2 ABG pO2 ABG HCO3 ABG Base Excess ABG Hemoglobin Oxyhemoglobin Sodium Potassium Chloride Carbon Dioxide BUN Creatinine Glucose POC Glucose 185 H Lactic Acid Calcium Ionized Calcium Phosphorus Magnesium Direct Bilirubin AST ALT Alkaline Phosphatase Lactate Dehydrogenase Troponin T C-Reactive Protein Total Protein Albumin Prealbumin Triglycerides Cholesterol LDL Cholesterol Direct HDL Cholesterol 25-OH Vitamin D Total PTH Intact Urine pH Urine WBC (Auto) Urine Creatinine Urine Total Protein Fluid Total Protein Vancomycin Trough Rheumatoid Factor Complement C4 Miscellaneous Test Crossmatch See Detail 09/16/16 09/16/16 09/16/16 17:55 19:19 23:48 WBC RBC Hgb Hct MCV MCH MCHC RDW Plt Count Lymph % (Auto) [place] % (Auto) Lymph # [place] # Baso # Seg Neutrophils % Seg Neuts % (Manual) Lymphocytes % (Manual) Monocytes % (Manual) Eosinophils % (Manual) Basophils % (Manual) Nucleated RBC % Seg Neutrophils # Seg Neutrophils # Man Lymphocytes # (Manual) Monocytes # (Manual) Eosinophils # (Manual) Basophils # (Manual) PT INR Fibrinogen dRVVT Confirm Interp Factor V Activity POC ABG pH POC ABG pCO2 POC ABG pO2 ABG pO2 ABG HCO3 ABG Base Excess ABG Hemoglobin Oxyhemoglobin Sodium Potassium Chloride Carbon Dioxide BUN Creatinine Glucose POC Glucose 222 H 107 H Lactic Acid Calcium Ionized Calcium Phosphorus Magnesium Direct Bilirubin AST ALT Alkaline Phosphatase Lactate Dehydrogenase Troponin T C-Reactive Protein Total Protein Albumin Prealbumin Triglycerides Cholesterol LDL Cholesterol Direct HDL Cholesterol 25-OH Vitamin D Total PTH Intact Urine pH Urine WBC (Auto) Urine Creatinine 47.4 H Urine Total Protein 16 H Fluid Total Protein Vancomycin Trough Rheumatoid Factor Complement C4 Miscellaneous Test Crossmatch 09/17/16 09/17/16 09/17/16 03:45 03:45 04:55 WBC 19.6 H RBC 3.41 L Hgb 8.5 L Hct 26.7 L MCV 78 L MCH 25 L MCHC RDW 19.9 H Plt Count Lymph % (Auto) 9.3 L [place] % (Auto) Lymph # [place] # 1.2 H Baso # Seg Neutrophils % 83.9 H Seg Neuts % (Manual) Lymphocytes % (Manual) Monocytes % (Manual) Eosinophils % (Manual) Basophils % (Manual) Nucleated RBC % Seg Neutrophils # 16.4 H Seg Neutrophils # Man Lymphocytes # (Manual) Monocytes # (Manual) Eosinophils # (Manual) Basophils # (Manual) PT INR Fibrinogen dRVVT Confirm Interp Factor V Activity POC ABG pH POC ABG pCO2 POC ABG pO2 ABG pO2 ABG HCO3 ABG Base Excess ABG Hemoglobin Oxyhemoglobin Sodium 146 H Potassium 5.1 H Chloride 110.9 H Carbon Dioxide 16 L BUN 146 H Creatinine 4.0 H Glucose 108 H POC Glucose 133 H Lactic Acid Calcium Ionized Calcium Phosphorus Magnesium 3.00 H Direct Bilirubin AST ALT Alkaline Phosphatase Lactate Dehydrogenase Troponin T C-Reactive Protein Total Protein Albumin Prealbumin Triglycerides Cholesterol LDL Cholesterol Direct HDL Cholesterol 25-OH Vitamin D Total PTH Intact Urine pH Urine WBC (Auto) Urine Creatinine Urine Total Protein Fluid Total Protein Vancomycin Trough Rheumatoid Factor Complement C4 Miscellaneous Test Crossmatch 09/17/16 09/17/16 09/17/16 11:15 17:33 23:47 WBC RBC Hgb Hct MCV MCH MCHC RDW Plt Count Lymph % (Auto) [place] % (Auto) Lymph # [place] # Baso # Seg Neutrophils % Seg Neuts % (Manual) Lymphocytes % (Manual) Monocytes % (Manual) Eosinophils % (Manual) Basophils % (Manual) Nucleated RBC % Seg Neutrophils # Seg Neutrophils # Man Lymphocytes # (Manual) Monocytes # (Manual) Eosinophils # (Manual) Basophils # (Manual) PT INR Fibrinogen dRVVT Confirm Interp Factor V Activity POC ABG pH POC ABG pCO2 POC ABG pO2 ABG pO2 ABG HCO3 ABG Base Excess ABG Hemoglobin Oxyhemoglobin Sodium Potassium Chloride Carbon Dioxide BUN Creatinine Glucose POC Glucose 176 H 246 H 148 H Lactic Acid Calcium Ionized Calcium Phosphorus Magnesium Direct Bilirubin AST ALT Alkaline Phosphatase Lactate Dehydrogenase Troponin T C-Reactive Protein Total Protein Albumin Prealbumin Triglycerides Cholesterol LDL Cholesterol Direct HDL Cholesterol 25-OH Vitamin D Total PTH Intact Urine pH Urine WBC (Auto) Urine Creatinine Urine Total Protein Fluid Total Protein Vancomycin Trough Rheumatoid Factor Complement C4 Miscellaneous Test Crossmatch 09/18/16 09/18/16 09/18/16 05:33 08:31 08:31 WBC 18.0 H RBC 3.17 L Hgb 9.0 L Hct 25.7 L MCV MCH MCHC 35 H RDW 20.4 H Plt Count Lymph % (Auto) [place] % (Auto) Lymph # [place] # Baso # Seg Neutrophils % Seg Neuts % (Manual) Lymphocytes % (Manual) Monocytes % (Manual) Eosinophils % (Manual) Basophils % (Manual) Nucleated RBC % Seg Neutrophils # Seg Neutrophils # Man Lymphocytes # (Manual) Monocytes # (Manual) Eosinophils # (Manual) Basophils # (Manual) PT INR Fibrinogen dRVVT Confirm Interp Factor V Activity POC ABG pH POC ABG pCO2 POC ABG pO2 ABG pO2 ABG HCO3 ABG Base Excess ABG Hemoglobin Oxyhemoglobin Sodium Potassium Chloride Carbon Dioxide 15 L BUN 124 H Creatinine 3.8 H Glucose POC Glucose 120 H Lactic Acid Calcium 8.1 L Ionized Calcium Phosphorus Magnesium Direct Bilirubin AST ALT Alkaline Phosphatase Lactate Dehydrogenase Troponin T C-Reactive Protein Total Protein Albumin Prealbumin Triglycerides Cholesterol LDL Cholesterol Direct HDL Cholesterol 25-OH Vitamin D Total PTH Intact Urine pH Urine WBC (Auto) Urine Creatinine Urine Total Protein Fluid Total Protein Vancomycin Trough Rheumatoid Factor Complement C4 Miscellaneous Test Crossmatch 09/18/16 09/18/16 09/18/16 12:03 15:34 17:50 WBC RBC Hgb Hct MCV MCH MCHC RDW Plt Count Lymph % (Auto) [place] % (Auto) Lymph # [place] # Baso # Seg Neutrophils % Seg Neuts % (Manual) Lymphocytes % (Manual) Monocytes % (Manual) Eosinophils % (Manual) Basophils % (Manual) Nucleated RBC % Seg Neutrophils # Seg Neutrophils # Man Lymphocytes # (Manual) Monocytes # (Manual) Eosinophils # (Manual) Basophils # (Manual) PT INR Fibrinogen dRVVT Confirm Interp Factor V Activity POC ABG pH POC ABG pCO2 25.7 L POC ABG pO2 66 L ABG pO2 ABG HCO3 ABG Base Excess ABG Hemoglobin Oxyhemoglobin Sodium Potassium Chloride Carbon Dioxide BUN Creatinine Glucose POC Glucose 156 H 220 H Lactic Acid Calcium Ionized Calcium Phosphorus Magnesium Direct Bilirubin AST ALT Alkaline Phosphatase Lactate Dehydrogenase Troponin T C-Reactive Protein Total Protein Albumin Prealbumin Triglycerides Cholesterol LDL Cholesterol Direct HDL Cholesterol 25-OH Vitamin D Total PTH Intact Urine pH Urine WBC (Auto) Urine Creatinine Urine Total Protein Fluid Total Protein Vancomycin Trough Rheumatoid Factor Complement C4 Miscellaneous Test Crossmatch 09/19/16 09/19/16 09/19/16 06:21 09:50 09:50 WBC 17.1 H RBC 3.49 L Hgb 9.0 L Hct 28.1 L MCV MCH 26 L MCHC RDW 20.8 H Plt Count Lymph % (Auto) 11.5 L [place] % (Auto) 7.5 H Lymph # [place] # 1.3 H Baso # Seg Neutrophils % 79.8 H Seg Neuts % (Manual) Lymphocytes % (Manual) Monocytes % (Manual) Eosinophils % (Manual) Basophils % (Manual) Nucleated RBC % Seg Neutrophils # 13.7 H Seg Neutrophils # Man Lymphocytes # (Manual) Monocytes # (Manual) Eosinophils # (Manual) Basophils # (Manual) PT INR Fibrinogen dRVVT Confirm Interp Factor V Activity POC ABG pH POC ABG pCO2 POC ABG pO2 ABG pO2 ABG HCO3 ABG Base Excess ABG Hemoglobin Oxyhemoglobin Sodium Potassium Chloride 108.6 H Carbon Dioxide 15 L BUN 125 H Creatinine 4.1 H Glucose 124 H POC Glucose 119 H Lactic Acid Calcium Ionized Calcium Phosphorus Magnesium Direct Bilirubin AST ALT Alkaline Phosphatase Lactate Dehydrogenase Troponin T C-Reactive Protein Total Protein Albumin Prealbumin Triglycerides Cholesterol LDL Cholesterol Direct HDL Cholesterol 25-OH Vitamin D Total PTH Intact Urine pH Urine WBC (Auto) Urine Creatinine Urine Total Protein Fluid Total Protein Vancomycin Trough Rheumatoid Factor Complement C4 Miscellaneous Test Crossmatch 09/19/16 09/19/16 09/19/16 11:25 17:53 23:36 WBC RBC Hgb Hct MCV MCH MCHC RDW Plt Count Lymph % (Auto) [place] % (Auto) Lymph # [place] # Baso # Seg Neutrophils % Seg Neuts % (Manual) Lymphocytes % (Manual) Monocytes % (Manual) Eosinophils % (Manual) Basophils % (Manual) Nucleated RBC % Seg Neutrophils # Seg Neutrophils # Man Lymphocytes # (Manual) Monocytes # (Manual) Eosinophils # (Manual) Basophils # (Manual) PT INR Fibrinogen dRVVT Confirm Interp Factor V Activity POC ABG pH POC ABG pCO2 POC ABG pO2 ABG pO2 ABG HCO3 ABG Base Excess ABG Hemoglobin Oxyhemoglobin Sodium Potassium Chloride Carbon Dioxide BUN Creatinine Glucose POC Glucose 160 H 245 H 121 H Lactic Acid Calcium Ionized Calcium Phosphorus Magnesium Direct Bilirubin AST ALT Alkaline Phosphatase Lactate Dehydrogenase Troponin T C-Reactive Protein Total Protein Albumin Prealbumin Triglycerides Cholesterol LDL Cholesterol Direct HDL Cholesterol 25-OH Vitamin D Total PTH Intact Urine pH Urine WBC (Auto) Urine Creatinine Urine Total Protein Fluid Total Protein Vancomycin Trough Rheumatoid Factor Complement C4 Miscellaneous Test Crossmatch 09/20/16 09/20/16 09/20/16 04:10 04:10 04:10 WBC 17.0 H RBC 3.21 L Hgb 8.2 L Hct 25.5 L MCV MCH 26 L MCHC RDW 20.9 H Plt Count Lymph % (Auto) [place] % (Auto) Lymph # [place] # Baso # Seg Neutrophils % Seg Neuts % (Manual) Lymphocytes % (Manual) Monocytes % (Manual) Eosinophils % (Manual) Basophils % (Manual) Nucleated RBC % Seg Neutrophils # Seg Neutrophils # Man Lymphocytes # (Manual) Monocytes # (Manual) Eosinophils # (Manual) Basophils # (Manual) PT INR Fibrinogen dRVVT Confirm Interp Factor V Activity POC ABG pH POC ABG pCO2 POC ABG pO2 ABG pO2 ABG HCO3 ABG Base Excess ABG Hemoglobin Oxyhemoglobin Sodium Potassium Chloride 111.0 H Carbon Dioxide 16 L BUN 129 H Creatinine 3.7 H Glucose 115 H POC Glucose Lactic Acid Calcium 8.2 L Ionized Calcium Phosphorus Magnesium Direct Bilirubin AST ALT Alkaline Phosphatase Lactate Dehydrogenase Troponin T C-Reactive Protein Total Protein Albumin Prealbumin Triglycerides 243 H Cholesterol LDL Cholesterol Direct HDL Cholesterol 25-OH Vitamin D Total PTH Intact Urine pH Urine WBC (Auto) Urine Creatinine Urine Total Protein Fluid Total Protein Vancomycin Trough Rheumatoid Factor Complement C4 Miscellaneous Test Crossmatch 09/20/16 09/20/16 09/20/16 05:40 11:52 16:50 WBC RBC Hgb Hct MCV MCH MCHC RDW Plt Count Lymph % (Auto) [place] % (Auto) Lymph # [place] # Baso # Seg Neutrophils % Seg Neuts % (Manual) Lymphocytes % (Manual) Monocytes % (Manual) Eosinophils % (Manual) Basophils % (Manual) Nucleated RBC % Seg Neutrophils # Seg Neutrophils # Man Lymphocytes # (Manual) Monocytes # (Manual) Eosinophils # (Manual) Basophils # (Manual) PT INR Fibrinogen dRVVT Confirm Interp Factor V Activity POC ABG pH POC ABG pCO2 POC ABG pO2 ABG pO2 ABG HCO3 ABG Base Excess ABG Hemoglobin Oxyhemoglobin Sodium Potassium Chloride Carbon Dioxide BUN Creatinine Glucose POC Glucose 131 H 183 H 236 H Lactic Acid Calcium Ionized Calcium Phosphorus Magnesium Direct Bilirubin AST ALT Alkaline Phosphatase Lactate Dehydrogenase Troponin T C-Reactive Protein Total Protein Albumin Prealbumin Triglycerides Cholesterol LDL Cholesterol Direct HDL Cholesterol 25-OH Vitamin D Total PTH Intact Urine pH Urine WBC (Auto) Urine Creatinine Urine Total Protein Fluid Total Protein Vancomycin Trough Rheumatoid Factor Complement C4 Miscellaneous Test Crossmatch 09/20/16 09/21/16 09/21/16 23:51 03:30 04:44 WBC RBC Hgb Hct MCV MCH MCHC RDW Plt Count Lymph % (Auto) [place] % (Auto) Lymph # [place] # Baso # Seg Neutrophils % Seg Neuts % (Manual) Lymphocytes % (Manual) Monocytes % (Manual) Eosinophils % (Manual) Basophils % (Manual) Nucleated RBC % Seg Neutrophils # Seg Neutrophils # Man Lymphocytes # (Manual) Monocytes # (Manual) Eosinophils # (Manual) Basophils # (Manual) PT INR Fibrinogen dRVVT Confirm Interp Factor V Activity POC ABG pH POC ABG pCO2 POC ABG pO2 ABG pO2 ABG HCO3 ABG Base Excess ABG Hemoglobin Oxyhemoglobin Sodium Potassium Chloride Carbon Dioxide BUN Creatinine Glucose POC Glucose 114 H 141 H Lactic Acid Calcium Ionized Calcium Phosphorus Magnesium 2.70 H Direct Bilirubin AST ALT Alkaline Phosphatase Lactate Dehydrogenase Troponin T C-Reactive Protein Total Protein Albumin Prealbumin Triglycerides Cholesterol LDL Cholesterol Direct HDL Cholesterol 25-OH Vitamin D Total PTH Intact Urine pH Urine WBC (Auto) Urine Creatinine Urine Total Protein Fluid Total Protein Vancomycin Trough Rheumatoid Factor Complement C4 Miscellaneous Test Crossmatch 09/21/16 09/21/16 09/21/16 07:45 07:45 10:01 WBC 13.8 H RBC 2.94 L Hgb 7.5 L Hct 23.5 L MCV MCH 26 L MCHC RDW 21.2 H Plt Count Lymph % (Auto) 6.9 L [place] % (Auto) 9.4 H Lymph # 0.9 L [place] # 1.3 H Baso # Seg Neutrophils % 83.2 H Seg Neuts % (Manual) Lymphocytes % (Manual) Monocytes % (Manual) Eosinophils % (Manual) Basophils % (Manual) Nucleated RBC % Seg Neutrophils # 11.5 H Seg Neutrophils # Man Lymphocytes # (Manual) Monocytes # (Manual) Eosinophils # (Manual) Basophils # (Manual) PT INR Fibrinogen dRVVT Confirm Interp Factor V Activity POC ABG pH 7.308 L POC ABG pCO2 31.9 L POC ABG pO2 148 H ABG pO2 ABG HCO3 ABG Base Excess ABG Hemoglobin Oxyhemoglobin Sodium 147 H Potassium Chloride 114.2 H Carbon Dioxide 15 L BUN 120 H Creatinine 3.9 H Glucose 156 H POC Glucose Lactic Acid Calcium 8.2 L Ionized Calcium Phosphorus Magnesium Direct Bilirubin AST ALT Alkaline Phosphatase Lactate Dehydrogenase Troponin T C-Reactive Protein Total Protein Albumin Prealbumin Triglycerides Cholesterol LDL Cholesterol Direct HDL Cholesterol 25-OH Vitamin D Total PTH Intact Urine pH Urine WBC (Auto) Urine Creatinine Urine Total Protein Fluid Total Protein Vancomycin Trough Rheumatoid Factor Complement C4 Miscellaneous Test Crossmatch 09/21/16 09/21/16 09/21/16 12:00 12:03 13:00 WBC RBC Hgb Hct MCV MCH MCHC RDW Plt Count Lymph % (Auto) [place] % (Auto) Lymph # [place] # Baso # Seg Neutrophils % Seg Neuts % (Manual) Lymphocytes % (Manual) Monocytes % (Manual) Eosinophils % (Manual) Basophils % (Manual) Nucleated RBC % Seg Neutrophils # Seg Neutrophils # Man Lymphocytes # (Manual) Monocytes # (Manual) Eosinophils # (Manual) Basophils # (Manual) PT INR Fibrinogen dRVVT Confirm Interp Factor V Activity POC ABG pH POC ABG pCO2 POC ABG pO2 ABG pO2 ABG HCO3 ABG Base Excess ABG Hemoglobin Oxyhemoglobin Sodium Potassium Chloride Carbon Dioxide BUN Creatinine Glucose POC Glucose 163 H Lactic Acid Calcium Ionized Calcium Phosphorus Magnesium Direct Bilirubin AST ALT Alkaline Phosphatase Lactate Dehydrogenase Troponin T C-Reactive Protein Total Protein Albumin Prealbumin Triglycerides Cholesterol LDL Cholesterol Direct HDL Cholesterol 25-OH Vitamin D Total PTH Intact Urine pH Urine WBC (Auto) Urine Creatinine 54.8 H Urine Total Protein Fluid Total Protein Vancomycin Trough 2.3 L Rheumatoid Factor Complement C4 Miscellaneous Test Crossmatch 09/21/16 09/21/16 09/22/16 16:51 23:17 06:27 WBC RBC Hgb Hct MCV MCH MCHC RDW Plt Count Lymph % (Auto) [place] % (Auto) Lymph # [place] # Baso # Seg Neutrophils % Seg Neuts % (Manual) Lymphocytes % (Manual) Monocytes % (Manual) Eosinophils % (Manual) Basophils % (Manual) Nucleated RBC % Seg Neutrophils # Seg Neutrophils # Man Lymphocytes # (Manual) Monocytes # (Manual) Eosinophils # (Manual) Basophils # (Manual) PT INR Fibrinogen dRVVT Confirm Interp Factor V Activity POC ABG pH POC ABG pCO2 POC ABG pO2 ABG pO2 ABG HCO3 ABG Base Excess ABG Hemoglobin Oxyhemoglobin Sodium Potassium Chloride Carbon Dioxide BUN Creatinine Glucose POC Glucose 206 H 114 H 115 H Lactic Acid Calcium Ionized Calcium Phosphorus Magnesium Direct Bilirubin AST ALT Alkaline Phosphatase Lactate Dehydrogenase Troponin T C-Reactive Protein Total Protein Albumin Prealbumin Triglycerides Cholesterol LDL Cholesterol Direct HDL Cholesterol 25-OH Vitamin D Total PTH Intact Urine pH Urine WBC (Auto) Urine Creatinine Urine Total Protein Fluid Total Protein Vancomycin Trough Rheumatoid Factor Complement C4 Miscellaneous Test Crossmatch 09/22/16 09/22/16 09/22/16 07:50 07:50 12:00 WBC 17.8 H RBC 3.04 L Hgb 8.0 L Hct 24.7 L MCV MCH 26 L MCHC RDW 21.6 H Plt Count Lymph % (Auto) [place] % (Auto) Lymph # [place] # Baso # Seg Neutrophils % Seg Neuts % (Manual) Lymphocytes % (Manual) Monocytes % (Manual) Eosinophils % (Manual) Basophils % (Manual) Nucleated RBC % Seg Neutrophils # Seg Neutrophils # Man Lymphocytes # (Manual) Monocytes # (Manual) Eosinophils # (Manual) Basophils # (Manual) PT INR Fibrinogen dRVVT Confirm Interp Factor V Activity POC ABG pH POC ABG pCO2 POC ABG pO2 ABG pO2 ABG HCO3 ABG Base Excess ABG Hemoglobin Oxyhemoglobin Sodium 150 H Potassium Chloride 118.2 H Carbon Dioxide 14 L BUN 111 H Creatinine 3.7 H Glucose 157 H POC Glucose 183 H Lactic Acid Calcium Ionized Calcium Phosphorus Magnesium Direct Bilirubin AST ALT Alkaline Phosphatase Lactate Dehydrogenase Troponin T C-Reactive Protein Total Protein Albumin Prealbumin Triglycerides Cholesterol LDL Cholesterol Direct HDL Cholesterol 25-OH Vitamin D Total PTH Intact Urine pH Urine WBC (Auto) Urine Creatinine Urine Total Protein Fluid Total Protein Vancomycin Trough Rheumatoid Factor Complement C4 Miscellaneous Test Crossmatch 09/22/16 09/22/16 09/23/16 17:29 23:10 05:00 WBC 19.2 H RBC 3.13 L Hgb 8.0 L Hct 25.2 L MCV MCH 26 L MCHC RDW 22.1 H Plt Count Lymph % (Auto) [place] % (Auto) Lymph # [place] # Baso # Seg Neutrophils % Seg Neuts % (Manual) 92.0 H Lymphocytes % (Manual) 3.0 L Monocytes % (Manual) Eosinophils % (Manual) Basophils % (Manual) Nucleated RBC % Seg Neutrophils # Seg Neutrophils # Man 17.7 H Lymphocytes # (Manual) 0.6 L Monocytes # (Manual) Eosinophils # (Manual) Basophils # (Manual) PT INR Fibrinogen dRVVT Confirm Interp Factor V Activity POC ABG pH POC ABG pCO2 POC ABG pO2 ABG pO2 ABG HCO3 ABG Base Excess ABG Hemoglobin Oxyhemoglobin Sodium Potassium Chloride Carbon Dioxide BUN Creatinine Glucose POC Glucose 197 H 169 H Lactic Acid Calcium Ionized Calcium Phosphorus Magnesium Direct Bilirubin AST ALT Alkaline Phosphatase Lactate Dehydrogenase Troponin T C-Reactive Protein Total Protein Albumin Prealbumin Triglycerides Cholesterol LDL Cholesterol Direct HDL Cholesterol 25-OH Vitamin D Total PTH Intact Urine pH Urine WBC (Auto) Urine Creatinine Urine Total Protein Fluid Total Protein Vancomycin Trough Rheumatoid Factor Complement C4 Miscellaneous Test Crossmatch 09/23/16 09/23/16 09/23/16 05:00 05:00 05:10 WBC RBC Hgb Hct MCV MCH MCHC RDW Plt Count Lymph % (Auto) [place] % (Auto) Lymph # [place] # Baso # Seg Neutrophils % Seg Neuts % (Manual) Lymphocytes % (Manual) Monocytes % (Manual) Eosinophils % (Manual) Basophils % (Manual) Nucleated RBC % Seg Neutrophils # Seg Neutrophils # Man Lymphocytes # (Manual) Monocytes # (Manual) Eosinophils # (Manual) Basophils # (Manual) PT INR Fibrinogen dRVVT Confirm Interp Factor V Activity POC ABG pH POC ABG pCO2 POC ABG pO2 ABG pO2 ABG HCO3 ABG Base Excess ABG Hemoglobin Oxyhemoglobin Sodium 147 H Potassium 3.2 L Chloride 115.7 H Carbon Dioxide 13 L BUN 111 H Creatinine 3.8 H Glucose 194 H POC Glucose 188 H Lactic Acid Calcium 7.3 L D Ionized Calcium Phosphorus Magnesium Direct Bilirubin AST ALT Alkaline Phosphatase Lactate Dehydrogenase Troponin T C-Reactive Protein 3.20 H Total Protein Albumin Prealbumin Triglycerides Cholesterol LDL Cholesterol Direct HDL Cholesterol 25-OH Vitamin D Total PTH Intact Urine pH Urine WBC (Auto) Urine Creatinine Urine Total Protein Fluid Total Protein Vancomycin Trough Rheumatoid Factor Complement C4 Miscellaneous Test Crossmatch 09/23/16 09/23/16 09/23/16 11:37 12:29 18:01 WBC RBC Hgb Hct MCV MCH MCHC RDW Plt Count Lymph % (Auto) [place] % (Auto) Lymph # [place] # Baso # Seg Neutrophils % Seg Neuts % (Manual) Lymphocytes % (Manual) Monocytes % (Manual) Eosinophils % (Manual) Basophils % (Manual) Nucleated RBC % Seg Neutrophils # Seg Neutrophils # Man Lymphocytes # (Manual) Monocytes # (Manual) Eosinophils # (Manual) Basophils # (Manual) PT INR Fibrinogen dRVVT Confirm Interp Factor V Activity POC ABG pH POC ABG pCO2 18.9 L POC ABG pO2 143 H ABG pO2 ABG HCO3 ABG Base Excess ABG Hemoglobin Oxyhemoglobin Sodium Potassium Chloride Carbon Dioxide BUN Creatinine Glucose POC Glucose 153 H 108 H Lactic Acid Calcium Ionized Calcium Phosphorus Magnesium Direct Bilirubin AST ALT Alkaline Phosphatase Lactate Dehydrogenase Troponin T C-Reactive Protein Total Protein Albumin Prealbumin Triglycerides Cholesterol LDL Cholesterol Direct HDL Cholesterol 25-OH Vitamin D Total PTH Intact Urine pH Urine WBC (Auto) Urine Creatinine Urine Total Protein Fluid Total Protein Vancomycin Trough Rheumatoid Factor Complement C4 Miscellaneous Test Crossmatch 09/23/16 09/23/16 09/24/16 21:19 23:43 05:16 WBC RBC Hgb Hct MCV MCH MCHC RDW Plt Count Lymph % (Auto) [place] % (Auto) Lymph # [place] # Baso # Seg Neutrophils % Seg Neuts % (Manual) Lymphocytes % (Manual) Monocytes % (Manual) Eosinophils % (Manual) Basophils % (Manual) Nucleated RBC % Seg Neutrophils # Seg Neutrophils # Man Lymphocytes # (Manual) Monocytes # (Manual) Eosinophils # (Manual) Basophils # (Manual) PT INR Fibrinogen dRVVT Confirm Interp Factor V Activity POC ABG pH POC ABG pCO2 17.3 L POC ABG pO2 112 H ABG pO2 ABG HCO3 ABG Base Excess ABG Hemoglobin Oxyhemoglobin Sodium Potassium Chloride Carbon Dioxide BUN Creatinine Glucose POC Glucose 143 H 164 H Lactic Acid Calcium Ionized Calcium Phosphorus Magnesium Direct Bilirubin AST ALT Alkaline Phosphatase Lactate Dehydrogenase Troponin T C-Reactive Protein Total Protein Albumin Prealbumin Triglycerides Cholesterol LDL Cholesterol Direct HDL Cholesterol 25-OH Vitamin D Total PTH Intact Urine pH Urine WBC (Auto) Urine Creatinine Urine Total Protein Fluid Total Protein Vancomycin Trough Rheumatoid Factor Complement C4 Miscellaneous Test Crossmatch 09/24/16 09/24/16 09/24/16 05:21 11:58 17:06 WBC RBC Hgb Hct MCV MCH MCHC RDW Plt Count Lymph % (Auto) [place] % (Auto) Lymph # [place] # Baso # Seg Neutrophils % Seg Neuts % (Manual) Lymphocytes % (Manual) Monocytes % (Manual) Eosinophils % (Manual) Basophils % (Manual) Nucleated RBC % Seg Neutrophils # Seg Neutrophils # Man Lymphocytes # (Manual) Monocytes # (Manual) Eosinophils # (Manual) Basophils # (Manual) PT INR Fibrinogen dRVVT Confirm Interp Factor V Activity POC ABG pH POC ABG pCO2 POC ABG pO2 ABG pO2 ABG HCO3 ABG Base Excess ABG Hemoglobin Oxyhemoglobin Sodium Potassium Chloride Carbon Dioxide 10 L BUN 103 H Creatinine 4.3 H Glucose 163 H POC Glucose 173 H 167 H Lactic Acid Calcium 6.5 L Ionized Calcium Phosphorus Magnesium Direct Bilirubin AST ALT Alkaline Phosphatase Lactate Dehydrogenase Troponin T C-Reactive Protein Total Protein Albumin Prealbumin Triglycerides Cholesterol LDL Cholesterol Direct HDL Cholesterol 25-OH Vitamin D Total PTH Intact Urine pH Urine WBC (Auto) Urine Creatinine Urine Total Protein Fluid Total Protein Vancomycin Trough Rheumatoid Factor Complement C4 Miscellaneous Test Crossmatch 09/24/16 09/24/16 09/24/16 20:15 21:02 23:48 WBC RBC Hgb Hct MCV MCH MCHC RDW Plt Count Lymph % (Auto) [place] % (Auto) Lymph # [place] # Baso # Seg Neutrophils % Seg Neuts % (Manual) Lymphocytes % (Manual) Monocytes % (Manual) Eosinophils % (Manual) Basophils % (Manual) Nucleated RBC % Seg Neutrophils # Seg Neutrophils # Man Lymphocytes # (Manual) Monocytes # (Manual) Eosinophils # (Manual) Basophils # (Manual) PT INR Fibrinogen dRVVT Confirm Interp Factor V Activity POC ABG pH 7.288 L POC ABG pCO2 30.2 L 21.5 L POC ABG pO2 32 L 39 L ABG pO2 ABG HCO3 ABG Base Excess ABG Hemoglobin Oxyhemoglobin Sodium Potassium Chloride Carbon Dioxide BUN Creatinine Glucose POC Glucose 109 H Lactic Acid Calcium Ionized Calcium Phosphorus Magnesium Direct Bilirubin AST ALT Alkaline Phosphatase Lactate Dehydrogenase Troponin T C-Reactive Protein Total Protein Albumin Prealbumin Triglycerides Cholesterol LDL Cholesterol Direct HDL Cholesterol 25-OH Vitamin D Total PTH Intact Urine pH Urine WBC (Auto) Urine Creatinine Urine Total Protein Fluid Total Protein Vancomycin Trough Rheumatoid Factor Complement C4 Miscellaneous Test Crossmatch 09/25/16 09/25/16 09/25/16 04:20 04:20 04:20 WBC RBC 2.58 L Hgb 7.0 L Hct 21.0 L MCV MCH 27 L MCHC RDW 23.8 H Plt Count Lymph % (Auto) [place] % (Auto) Lymph # [place] # Baso # Seg Neutrophils % Seg Neuts % (Manual) Lymphocytes % (Manual) 12.0 L Monocytes % (Manual) Eosinophils % (Manual) 7.0 H Basophils % (Manual) 2.0 H Nucleated RBC % Seg Neutrophils # Seg Neutrophils # Man Lymphocytes # (Manual) 0.9 L Monocytes # (Manual) Eosinophils # (Manual) 0.5 H Basophils # (Manual) PT INR Fibrinogen dRVVT Confirm Interp Factor V Activity POC ABG pH POC ABG pCO2 POC ABG pO2 ABG pO2 ABG HCO3 ABG Base Excess ABG Hemoglobin Oxyhemoglobin Sodium Potassium Chloride Carbon Dioxide 15 L BUN 72 H Creatinine 3.8 H Glucose POC Glucose Lactic Acid Calcium 6.0 L Ionized Calcium Phosphorus 4.60 H Magnesium 1.60 L Direct Bilirubin AST ALT Alkaline Phosphatase Lactate Dehydrogenase Troponin T C-Reactive Protein Total Protein Albumin Prealbumin Triglycerides Cholesterol LDL Cholesterol Direct HDL Cholesterol 25-OH Vitamin D Total PTH Intact Urine pH Urine WBC (Auto) Urine Creatinine Urine Total Protein Fluid Total Protein Vancomycin Trough Rheumatoid Factor Complement C4 Miscellaneous Test Crossmatch 09/25/16 09/25/16 09/25/16 04:57 08:02 10:30 WBC RBC Hgb Hct MCV MCH MCHC RDW Plt Count Lymph % (Auto) [place] % (Auto) Lymph # [place] # Baso # Seg Neutrophils % Seg Neuts % (Manual) Lymphocytes % (Manual) Monocytes % (Manual) Eosinophils % (Manual) Basophils % (Manual) Nucleated RBC % Seg Neutrophils # Seg Neutrophils # Man Lymphocytes # (Manual) Monocytes # (Manual) Eosinophils # (Manual) Basophils # (Manual) PT INR Fibrinogen dRVVT Confirm Interp Factor V Activity POC ABG pH POC ABG pCO2 24.7 L POC ABG pO2 152 H ABG pO2 ABG HCO3 ABG Base Excess ABG Hemoglobin Oxyhemoglobin Sodium Potassium Chloride Carbon Dioxide BUN Creatinine Glucose POC Glucose 113 H Lactic Acid Calcium Ionized Calcium Phosphorus Magnesium Direct Bilirubin AST ALT Alkaline Phosphatase Lactate Dehydrogenase Troponin T C-Reactive Protein Total Protein Albumin Prealbumin Triglycerides Cholesterol LDL Cholesterol Direct HDL Cholesterol 25-OH Vitamin D Total PTH Intact Urine pH Urine WBC (Auto) Urine Creatinine Urine Total Protein Fluid Total Protein Vancomycin Trough Rheumatoid Factor Complement C4 Miscellaneous Test Crossmatch See Detail 09/25/16 09/25/16 09/25/16 12:05 17:44 23:47 WBC RBC Hgb Hct MCV MCH MCHC RDW Plt Count Lymph % (Auto) [place] % (Auto) Lymph # [place] # Baso # Seg Neutrophils % Seg Neuts % (Manual) Lymphocytes % (Manual) Monocytes % (Manual) Eosinophils % (Manual) Basophils % (Manual) Nucleated RBC % Seg Neutrophils # Seg Neutrophils # Man Lymphocytes # (Manual) Monocytes # (Manual) Eosinophils # (Manual) Basophils # (Manual) PT INR Fibrinogen dRVVT Confirm Interp Factor V Activity POC ABG pH POC ABG pCO2 POC ABG pO2 ABG pO2 ABG HCO3 ABG Base Excess ABG Hemoglobin Oxyhemoglobin Sodium Potassium Chloride Carbon Dioxide BUN Creatinine Glucose POC Glucose 117 H 119 H 150 H Lactic Acid Calcium Ionized Calcium Phosphorus Magnesium Direct Bilirubin AST ALT Alkaline Phosphatase Lactate Dehydrogenase Troponin T C-Reactive Protein Total Protein Albumin Prealbumin Triglycerides Cholesterol LDL Cholesterol Direct HDL Cholesterol 25-OH Vitamin D Total PTH Intact Urine pH Urine WBC (Auto) Urine Creatinine Urine Total Protein Fluid Total Protein Vancomycin Trough Rheumatoid Factor Complement C4 Miscellaneous Test Crossmatch 09/26/16 09/26/16 09/26/16 04:25 04:25 04:25 WBC RBC 2.65 L Hgb 7.4 L Hct 21.6 L MCV MCH MCHC RDW 22.5 H Plt Count Lymph % (Auto) [place] % (Auto) Lymph # [place] # Baso # Seg Neutrophils % Seg Neuts % (Manual) Lymphocytes % (Manual) 6.0 L Monocytes % (Manual) Eosinophils % (Manual) 11.0 H Basophils % (Manual) Nucleated RBC % Seg Neutrophils # Seg Neutrophils # Man Lymphocytes # (Manual) 0.4 L Monocytes # (Manual) Eosinophils # (Manual) 0.6 H Basophils # (Manual) PT INR Fibrinogen dRVVT Confirm Interp Factor V Activity POC ABG pH POC ABG pCO2 POC ABG pO2 ABG pO2 ABG HCO3 ABG Base Excess ABG Hemoglobin Oxyhemoglobin Sodium Potassium Chloride 97.0 L Carbon Dioxide 19 L BUN 43 H Creatinine 2.6 H Glucose 130 H POC Glucose Lactic Acid 4.40 H* Calcium 6.7 L Ionized Calcium Phosphorus Magnesium Direct Bilirubin AST ALT Alkaline Phosphatase Lactate Dehydrogenase Troponin T C-Reactive Protein Total Protein Albumin Prealbumin Triglycerides Cholesterol LDL Cholesterol Direct HDL Cholesterol 25-OH Vitamin D Total PTH Intact Urine pH Urine WBC (Auto) Urine Creatinine Urine Total Protein Fluid Total Protein Vancomycin Trough Rheumatoid Factor Complement C4 Miscellaneous Test Crossmatch 09/26/16 09/26/16 09/26/16 05:20 11:44 12:12 WBC RBC Hgb Hct MCV MCH MCHC RDW Plt Count Lymph % (Auto) [place] % (Auto) Lymph # [place] # Baso # Seg Neutrophils % Seg Neuts % (Manual) Lymphocytes % (Manual) Monocytes % (Manual) Eosinophils % (Manual) Basophils % (Manual) Nucleated RBC % Seg Neutrophils # Seg Neutrophils # Man Lymphocytes # (Manual) Monocytes # (Manual) Eosinophils # (Manual) Basophils # (Manual) PT INR Fibrinogen dRVVT Confirm Interp Factor V Activity POC ABG pH POC ABG pCO2 27.0 L POC ABG pO2 69 L ABG pO2 ABG HCO3 ABG Base Excess ABG Hemoglobin Oxyhemoglobin Sodium Potassium Chloride Carbon Dioxide BUN Creatinine Glucose POC Glucose 121 H 128 H Lactic Acid Calcium Ionized Calcium Phosphorus Magnesium Direct Bilirubin AST ALT Alkaline Phosphatase Lactate Dehydrogenase Troponin T C-Reactive Protein Total Protein Albumin Prealbumin Triglycerides Cholesterol LDL Cholesterol Direct HDL Cholesterol 25-OH Vitamin D Total PTH Intact Urine pH Urine WBC (Auto) Urine Creatinine Urine Total Protein Fluid Total Protein Vancomycin Trough Rheumatoid Factor Complement C4 Miscellaneous Test Crossmatch 09/26/16 09/26/16 09/27/16 18:31 23:40 08:20 WBC RBC Hgb Hct MCV MCH MCHC RDW Plt Count Lymph % (Auto) [place] % (Auto) Lymph # [place] # Baso # Seg Neutrophils % Seg Neuts % (Manual) Lymphocytes % (Manual) Monocytes % (Manual) Eosinophils % (Manual) Basophils % (Manual) Nucleated RBC % Seg Neutrophils # Seg Neutrophils # Man Lymphocytes # (Manual) Monocytes # (Manual) Eosinophils # (Manual) Basophils # (Manual) PT INR Fibrinogen dRVVT Confirm Interp Factor V Activity POC ABG pH POC ABG pCO2 POC ABG pO2 ABG pO2 ABG HCO3 ABG Base Excess ABG Hemoglobin Oxyhemoglobin Sodium Potassium Chloride Carbon Dioxide BUN Creatinine Glucose POC Glucose 120 H 133 H Lactic Acid 4.10 H* Calcium Ionized Calcium Phosphorus Magnesium Direct Bilirubin AST ALT Alkaline Phosphatase Lactate Dehydrogenase Troponin T C-Reactive Protein Total Protein Albumin Prealbumin Triglycerides Cholesterol LDL Cholesterol Direct HDL Cholesterol 25-OH Vitamin D Total PTH Intact Urine pH Urine WBC (Auto) Urine Creatinine Urine Total Protein Fluid Total Protein Vancomycin Trough Rheumatoid Factor Complement C4 Miscellaneous Test Crossmatch 09/27/16 09/27/16 09/27/16 11:23 15:00 18:15 WBC RBC Hgb Hct MCV MCH MCHC RDW Plt Count Lymph % (Auto) [place] % (Auto) Lymph # [place] # Baso # Seg Neutrophils % Seg Neuts % (Manual) Lymphocytes % (Manual) Monocytes % (Manual) Eosinophils % (Manual) Basophils % (Manual) Nucleated RBC % Seg Neutrophils # Seg Neutrophils # Man Lymphocytes # (Manual) Monocytes # (Manual) Eosinophils # (Manual) Basophils # (Manual) PT INR Fibrinogen dRVVT Confirm Interp Factor V Activity POC ABG pH 7.459 H POC ABG pCO2 27.1 L POC ABG pO2 140 H ABG pO2 ABG HCO3 ABG Base Excess ABG Hemoglobin Oxyhemoglobin Sodium Potassium Chloride Carbon Dioxide BUN Creatinine Glucose POC Glucose 114 H 127 H Lactic Acid Calcium Ionized Calcium Phosphorus Magnesium Direct Bilirubin AST ALT Alkaline Phosphatase Lactate Dehydrogenase Troponin T C-Reactive Protein Total Protein Albumin Prealbumin Triglycerides Cholesterol LDL Cholesterol Direct HDL Cholesterol 25-OH Vitamin D Total PTH Intact Urine pH Urine WBC (Auto) Urine Creatinine Urine Total Protein Fluid Total Protein Vancomycin Trough Rheumatoid Factor Complement C4 Miscellaneous Test Crossmatch 09/27/16 09/27/16 09/28/16 Unknown Unknown 03:45 WBC RBC 2.49 L Hgb 6.8 L Hct 20.7 L MCV MCH 27 L MCHC RDW 22.1 H Plt Count Lymph % (Auto) [place] % (Auto) Lymph # [place] # Baso # Seg Neutrophils % Seg Neuts % (Manual) 32.0 L Lymphocytes % (Manual) 12.0 L Monocytes % (Manual) 11.0 H Eosinophils % (Manual) 10.0 H Basophils % (Manual) Nucleated RBC % Seg Neutrophils # Seg Neutrophils # Man Lymphocytes # (Manual) 1.0 L Monocytes # (Manual) 0.9 H Eosinophils # (Manual) 0.8 H Basophils # (Manual) PT INR Fibrinogen dRVVT Confirm Interp Factor V Activity POC ABG pH POC ABG pCO2 POC ABG pO2 ABG pO2 ABG HCO3 ABG Base Excess ABG Hemoglobin Oxyhemoglobin Sodium 135 L 135 L Potassium 3.5 L Chloride 93.6 L 94.4 L Carbon Dioxide 17 L 21 L BUN 45 H 28 H Creatinine 3.3 H 2.5 H Glucose 106 H POC Glucose Lactic Acid Calcium 7.3 L 7.1 L Ionized Calcium Phosphorus Magnesium Direct Bilirubin AST ALT Alkaline Phosphatase Lactate Dehydrogenase Troponin T C-Reactive Protein Total Protein Albumin Prealbumin Triglycerides Cholesterol LDL Cholesterol Direct HDL Cholesterol 25-OH Vitamin D Total PTH Intact Urine pH Urine WBC (Auto) Urine Creatinine Urine Total Protein Fluid Total Protein Vancomycin Trough Rheumatoid Factor Complement C4 Miscellaneous Test Crossmatch 09/28/16 09/28/16 09/28/16 03:45 07:25 11:58 WBC 13.3 H RBC 3.01 L Hgb 8.4 L Hct 25.0 L MCV MCH MCHC RDW 20.5 H Plt Count 128 L Lymph % (Auto) [place] % (Auto) Lymph # [place] # Baso # Seg Neutrophils % Seg Neuts % (Manual) Lymphocytes % (Manual) 7.0 L Monocytes % (Manual) Eosinophils % (Manual) 6.0 H Basophils % (Manual) Nucleated RBC % Seg Neutrophils # Seg Neutrophils # Man Lymphocytes # (Manual) 0.9 L Monocytes # (Manual) Eosinophils # (Manual) 0.8 H Basophils # (Manual) PT INR Fibrinogen dRVVT Confirm Interp Factor V Activity POC ABG pH POC ABG pCO2 POC ABG pO2 ABG pO2 ABG HCO3 ABG Base Excess ABG Hemoglobin Oxyhemoglobin Sodium Potassium Chloride Carbon Dioxide BUN Creatinine Glucose POC Glucose 121 H Lactic Acid 4.50 H* Calcium Ionized Calcium Phosphorus Magnesium Direct Bilirubin AST ALT Alkaline Phosphatase Lactate Dehydrogenase Troponin T C-Reactive Protein Total Protein Albumin Prealbumin Triglycerides Cholesterol LDL Cholesterol Direct HDL Cholesterol 25-OH Vitamin D Total PTH Intact Urine pH Urine WBC (Auto) Urine Creatinine Urine Total Protein Fluid Total Protein Vancomycin Trough Rheumatoid Factor Complement C4 Miscellaneous Test Crossmatch 09/29/16 09/29/16 09/29/16 06:45 06:45 06:45 WBC 14.9 H RBC 2.74 L Hgb 7.6 L Hct 23.2 L MCV MCH MCHC RDW 20.5 H Plt Count 81 L Lymph % (Auto) [place] % (Auto) Lymph # [place] # Baso # Seg Neutrophils % Seg Neuts % (Manual) 81.0 H Lymphocytes % (Manual) 4.0 L Monocytes % (Manual) Eosinophils % (Manual) Basophils % (Manual) Nucleated RBC % Seg Neutrophils # Seg Neutrophils # Man 12.1 H Lymphocytes # (Manual) 0.6 L Monocytes # (Manual) Eosinophils # (Manual) Basophils # (Manual) PT INR Fibrinogen dRVVT Confirm Interp Factor V Activity POC ABG pH POC ABG pCO2 POC ABG pO2 ABG pO2 ABG HCO3 ABG Base Excess ABG Hemoglobin Oxyhemoglobin Sodium 133 L Potassium 3.4 L Chloride 92.5 L Carbon Dioxide 21 L BUN 33 H Creatinine 3.0 H Glucose POC Glucose Lactic Acid Calcium 6.6 L Ionized Calcium Phosphorus Magnesium 1.40 L Direct Bilirubin 0.9 H AST ALT Alkaline Phosphatase Lactate Dehydrogenase Troponin T C-Reactive Protein Total Protein 4.3 L Albumin 1.3 L Prealbumin Triglycerides Cholesterol LDL Cholesterol Direct HDL Cholesterol 25-OH Vitamin D Total PTH Intact Urine pH Urine WBC (Auto) Urine Creatinine Urine Total Protein Fluid Total Protein Vancomycin Trough Rheumatoid Factor Complement C4 Miscellaneous Test Crossmatch 09/29/16 09/29/16 09/30/16 17:52 20:12 00:07 WBC RBC Hgb Hct MCV MCH MCHC RDW Plt Count Lymph % (Auto) [place] % (Auto) Lymph # [place] # Baso # Seg Neutrophils % Seg Neuts % (Manual) Lymphocytes % (Manual) Monocytes % (Manual) Eosinophils % (Manual) Basophils % (Manual) Nucleated RBC % Seg Neutrophils # Seg Neutrophils # Man Lymphocytes # (Manual) Monocytes # (Manual) Eosinophils # (Manual) Basophils # (Manual) PT INR Fibrinogen dRVVT Confirm Interp Factor V Activity POC ABG pH POC ABG pCO2 POC ABG pO2 ABG pO2 ABG HCO3 ABG Base Excess ABG Hemoglobin Oxyhemoglobin Sodium Potassium Chloride Carbon Dioxide BUN Creatinine Glucose POC Glucose 50 L 51 L Lactic Acid Calcium Ionized Calcium Phosphorus Magnesium Direct Bilirubin AST ALT Alkaline Phosphatase Lactate Dehydrogenase Troponin T 0.204 H* C-Reactive Protein Total Protein Albumin Prealbumin Triglycerides Cholesterol 31 L LDL Cholesterol Direct 4 L HDL Cholesterol 3 L 25-OH Vitamin D Total PTH Intact Urine pH Urine WBC (Auto) Urine Creatinine Urine Total Protein Fluid Total Protein Vancomycin Trough Rheumatoid Factor Complement C4 Miscellaneous Test Crossmatch 09/30/16 09/30/16 09/30/16 01:30 05:15 06:10 WBC RBC Hgb Hct MCV MCH MCHC RDW Plt Count Lymph % (Auto) [place] % (Auto) Lymph # [place] # Baso # Seg Neutrophils % Seg Neuts % (Manual) Lymphocytes % (Manual) Monocytes % (Manual) Eosinophils % (Manual) Basophils % (Manual) Nucleated RBC % Seg Neutrophils # Seg Neutrophils # Man Lymphocytes # (Manual) Monocytes # (Manual) Eosinophils # (Manual) Basophils # (Manual) PT INR Fibrinogen dRVVT Confirm Interp Factor V Activity POC ABG pH POC ABG pCO2 POC ABG pO2 ABG pO2 ABG HCO3 ABG Base Excess ABG Hemoglobin Oxyhemoglobin Sodium 133 L Potassium 3.2 L Chloride 93.2 L Carbon Dioxide 19 L BUN 36 H Creatinine 3.2 H Glucose 104 H POC Glucose 167 H 146 H Lactic Acid Calcium 6.4 L Ionized Calcium Phosphorus Magnesium 1.60 L Direct Bilirubin AST ALT Alkaline Phosphatase Lactate Dehydrogenase Troponin T C-Reactive Protein Total Protein Albumin Prealbumin Triglycerides Cholesterol LDL Cholesterol Direct HDL Cholesterol 25-OH Vitamin D Total PTH Intact Urine pH Urine WBC (Auto) Urine Creatinine Urine Total Protein Fluid Total Protein Vancomycin Trough Rheumatoid Factor Complement C4 Miscellaneous Test Crossmatch 09/30/16 09/30/16 09/30/16 11:26 13:39 18:38 WBC RBC Hgb Hct MCV MCH MCHC RDW Plt Count Lymph % (Auto) [place] % (Auto) Lymph # [place] # Baso # Seg Neutrophils % Seg Neuts % (Manual) Lymphocytes % (Manual) Monocytes % (Manual) Eosinophils % (Manual) Basophils % (Manual) Nucleated RBC % Seg Neutrophils # Seg Neutrophils # Man Lymphocytes # (Manual) Monocytes # (Manual) Eosinophils # (Manual) Basophils # (Manual) PT INR Fibrinogen dRVVT Confirm Interp Factor V Activity POC ABG pH 7.479 H POC ABG pCO2 29.8 L POC ABG pO2 117 H ABG pO2 ABG HCO3 ABG Base Excess ABG Hemoglobin Oxyhemoglobin Sodium Potassium Chloride Carbon Dioxide BUN Creatinine Glucose POC Glucose 140 H 122 H Lactic Acid Calcium Ionized Calcium Phosphorus Magnesium Direct Bilirubin AST ALT Alkaline Phosphatase Lactate Dehydrogenase Troponin T C-Reactive Protein Total Protein Albumin Prealbumin Triglycerides Cholesterol LDL Cholesterol Direct HDL Cholesterol 25-OH Vitamin D Total PTH Intact Urine pH Urine WBC (Auto) Urine Creatinine Urine Total Protein Fluid Total Protein Vancomycin Trough Rheumatoid Factor Complement C4 Miscellaneous Test Crossmatch 10/01/16 10/01/16 10/01/16 06:00 06:00 12:37 WBC 12.6 H RBC 2.75 L Hgb 7.3 L Hct 23.3 L MCV MCH 27 L MCHC RDW 20.6 H Plt Count 72 L Lymph % (Auto) [place] % (Auto) Lymph # [place] # Baso # Seg Neutrophils % Seg Neuts % (Manual) 31.0 L Lymphocytes % (Manual) 8.0 L Monocytes % (Manual) Eosinophils % (Manual) Basophils % (Manual) Nucleated RBC % 3.0 H Seg Neutrophils # Seg Neutrophils # Man Lymphocytes # (Manual) 1.0 L Monocytes # (Manual) Eosinophils # (Manual) Basophils # (Manual) PT INR Fibrinogen dRVVT Confirm Interp Factor V Activity POC ABG pH POC ABG pCO2 POC ABG pO2 ABG pO2 ABG HCO3 ABG Base Excess ABG Hemoglobin Oxyhemoglobin Sodium 127 L Potassium Chloride 86.8 L Carbon Dioxide 20 L BUN 42 H Creatinine 3.5 H Glucose POC Glucose 65 L Lactic Acid Calcium 7.0 L Ionized Calcium Phosphorus Magnesium Direct Bilirubin AST ALT Alkaline Phosphatase Lactate Dehydrogenase Troponin T C-Reactive Protein Total Protein Albumin Prealbumin Triglycerides Cholesterol LDL Cholesterol Direct HDL Cholesterol 25-OH Vitamin D Total PTH Intact Urine pH Urine WBC (Auto) Urine Creatinine Urine Total Protein Fluid Total Protein Vancomycin Trough Rheumatoid Factor Complement C4 Miscellaneous Test Crossmatch 10/01/16 10/01/16 10/02/16 17:39 23:32 00:59 WBC RBC Hgb Hct MCV MCH MCHC RDW Plt Count Lymph % (Auto) [place] % (Auto) Lymph # [place] # Baso # Seg Neutrophils % Seg Neuts % (Manual) Lymphocytes % (Manual) Monocytes % (Manual) Eosinophils % (Manual) Basophils % (Manual) Nucleated RBC % Seg Neutrophils # Seg Neutrophils # Man Lymphocytes # (Manual) Monocytes # (Manual) Eosinophils # (Manual) Basophils # (Manual) PT INR Fibrinogen dRVVT Confirm Interp Factor V Activity POC ABG pH POC ABG pCO2 POC ABG pO2 ABG pO2 ABG HCO3 ABG Base Excess ABG Hemoglobin Oxyhemoglobin Sodium Potassium Chloride Carbon Dioxide BUN Creatinine Glucose POC Glucose 107 H 52 L 145 H Lactic Acid Calcium Ionized Calcium Phosphorus Magnesium Direct Bilirubin AST ALT Alkaline Phosphatase Lactate Dehydrogenase Troponin T C-Reactive Protein Total Protein Albumin Prealbumin Triglycerides Cholesterol LDL Cholesterol Direct HDL Cholesterol 25-OH Vitamin D Total PTH Intact Urine pH Urine WBC (Auto) Urine Creatinine Urine Total Protein Fluid Total Protein Vancomycin Trough Rheumatoid Factor Complement C4 Miscellaneous Test Crossmatch 10/02/16 10/02/16 10/02/16 10:30 10:50 10:50 WBC 14.7 H RBC 2.76 L Hgb 7.4 L Hct 23.6 L MCV MCH 27 L MCHC RDW 20.2 H Plt Count 79 L Lymph % (Auto) [place] % (Auto) Lymph # [place] # Baso # Seg Neutrophils % Seg Neuts % (Manual) 86.0 H Lymphocytes % (Manual) 6.0 L Monocytes % (Manual) Eosinophils % (Manual) Basophils % (Manual) Nucleated RBC % Seg Neutrophils # Seg Neutrophils # Man 12.6 H Lymphocytes # (Manual) 0.9 L Monocytes # (Manual) Eosinophils # (Manual) Basophils # (Manual) PT INR Fibrinogen dRVVT Confirm Interp Factor V Activity POC ABG pH 7.486 H POC ABG pCO2 30.1 L POC ABG pO2 108 H ABG pO2 ABG HCO3 ABG Base Excess ABG Hemoglobin Oxyhemoglobin Sodium 131 L Potassium 3.4 L Chloride 89.9 L Carbon Dioxide BUN 26 H Creatinine 2.6 H Glucose POC Glucose Lactic Acid Calcium 7.0 L Ionized Calcium Phosphorus Magnesium Direct Bilirubin AST ALT Alkaline Phosphatase Lactate Dehydrogenase Troponin T C-Reactive Protein Total Protein Albumin Prealbumin Triglycerides Cholesterol LDL Cholesterol Direct HDL Cholesterol 25-OH Vitamin D Total PTH Intact Urine pH Urine WBC (Auto) Urine Creatinine Urine Total Protein Fluid Total Protein Vancomycin Trough Rheumatoid Factor Complement C4 Miscellaneous Test Crossmatch 10/02/16 10/03/16 10/03/16 23:45 00:45 05:10 WBC 12.9 H RBC 2.77 L Hgb 7.6 L Hct 23.7 L MCV MCH 27 L MCHC RDW 19.7 H Plt Count 89 L Lymph % (Auto) [place] % (Auto) Lymph # [place] # Baso # Seg Neutrophils % Seg Neuts % (Manual) Lymphocytes % (Manual) 8.0 L Monocytes % (Manual) Eosinophils % (Manual) Basophils % (Manual) Nucleated RBC % Seg Neutrophils # 11.9 H Seg Neutrophils # Man Lymphocytes # (Manual) 1.0 L Monocytes # (Manual) Eosinophils # (Manual) Basophils # (Manual) PT INR Fibrinogen dRVVT Confirm Interp Factor V Activity POC ABG pH POC ABG pCO2 POC ABG pO2 ABG pO2 ABG HCO3 ABG Base Excess ABG Hemoglobin Oxyhemoglobin Sodium Potassium Chloride Carbon Dioxide BUN Creatinine Glucose POC Glucose 55 L 199 H Lactic Acid Calcium Ionized Calcium Phosphorus Magnesium Direct Bilirubin AST ALT Alkaline Phosphatase Lactate Dehydrogenase Troponin T C-Reactive Protein Total Protein Albumin Prealbumin Triglycerides Cholesterol LDL Cholesterol Direct HDL Cholesterol 25-OH Vitamin D Total PTH Intact Urine pH Urine WBC (Auto) Urine Creatinine Urine Total Protein Fluid Total Protein Vancomycin Trough Rheumatoid Factor Complement C4 Miscellaneous Test Crossmatch 10/03/16 10/03/16 10/03/16 05:10 12:14 13:18 WBC RBC Hgb Hct MCV MCH MCHC RDW Plt Count Lymph % (Auto) [place] % (Auto) Lymph # [place] # Baso # Seg Neutrophils % Seg Neuts % (Manual) Lymphocytes % (Manual) Monocytes % (Manual) Eosinophils % (Manual) Basophils % (Manual) Nucleated RBC % Seg Neutrophils # Seg Neutrophils # Man Lymphocytes # (Manual) Monocytes # (Manual) Eosinophils # (Manual) Basophils # (Manual) PT INR Fibrinogen dRVVT Confirm Interp Factor V Activity POC ABG pH POC ABG pCO2 POC ABG pO2 ABG pO2 ABG HCO3 ABG Base Excess ABG Hemoglobin Oxyhemoglobin Sodium 129 L Potassium 3.3 L Chloride 88.8 L Carbon Dioxide 20 L BUN 29 H Creatinine 2.8 H Glucose POC Glucose 68 L 127 H Lactic Acid Calcium 7.2 L Ionized Calcium Phosphorus Magnesium Direct Bilirubin AST ALT Alkaline Phosphatase Lactate Dehydrogenase Troponin T C-Reactive Protein Total Protein Albumin Prealbumin Triglycerides Cholesterol LDL Cholesterol Direct HDL Cholesterol 25-OH Vitamin D Total PTH Intact Urine pH Urine WBC (Auto) Urine Creatinine Urine Total Protein Fluid Total Protein Vancomycin Trough Rheumatoid Factor Complement C4 Miscellaneous Test Crossmatch 10/03/16 10/03/16 10/03/16 14:42 18:21 19:09 WBC RBC Hgb Hct MCV MCH MCHC RDW Plt Count Lymph % (Auto) [place] % (Auto) Lymph # [place] # Baso # Seg Neutrophils % Seg Neuts % (Manual) Lymphocytes % (Manual) Monocytes % (Manual) Eosinophils % (Manual) Basophils % (Manual) Nucleated RBC % Seg Neutrophils # Seg Neutrophils # Man Lymphocytes # (Manual) Monocytes # (Manual) Eosinophils # (Manual) Basophils # (Manual) PT INR Fibrinogen dRVVT Confirm Interp Factor V Activity POC ABG pH 7.499 H POC ABG pCO2 28.4 L POC ABG pO2 44 L ABG pO2 ABG HCO3 ABG Base Excess ABG Hemoglobin Oxyhemoglobin Sodium Potassium Chloride Carbon Dioxide BUN Creatinine Glucose POC Glucose 64 L 205 H Lactic Acid Calcium Ionized Calcium Phosphorus Magnesium Direct Bilirubin AST ALT Alkaline Phosphatase Lactate Dehydrogenase Troponin T C-Reactive Protein Total Protein Albumin Prealbumin Triglycerides Cholesterol LDL Cholesterol Direct HDL Cholesterol 25-OH Vitamin D Total PTH Intact Urine pH Urine WBC (Auto) Urine Creatinine Urine Total Protein Fluid Total Protein Vancomycin Trough Rheumatoid Factor Complement C4 Miscellaneous Test Crossmatch 10/03/16 10/04/16 10/04/16 23:33 04:18 06:30 WBC RBC 2.54 L Hgb 7.1 L Hct 21.7 L MCV MCH MCHC RDW 19.5 H Plt Count 76 L Lymph % (Auto) [place] % (Auto) Lymph # [place] # Baso # Seg Neutrophils % Seg Neuts % (Manual) 88.0 H Lymphocytes % (Manual) 6.0 L Monocytes % (Manual) Eosinophils % (Manual) Basophils % (Manual) Nucleated RBC % Seg Neutrophils # Seg Neutrophils # Man 8.8 H Lymphocytes # (Manual) 0.6 L Monocytes # (Manual) Eosinophils # (Manual) Basophils # (Manual) PT INR Fibrinogen dRVVT Confirm Interp Factor V Activity POC ABG pH 7.461 H POC ABG pCO2 33.6 L POC ABG pO2 211 H ABG pO2 ABG HCO3 ABG Base Excess ABG Hemoglobin Oxyhemoglobin Sodium Potassium Chloride Carbon Dioxide BUN Creatinine Glucose POC Glucose 136 H Lactic Acid Calcium Ionized Calcium Phosphorus Magnesium Direct Bilirubin AST ALT Alkaline Phosphatase Lactate Dehydrogenase Troponin T C-Reactive Protein Total Protein Albumin Prealbumin Triglycerides Cholesterol LDL Cholesterol Direct HDL Cholesterol 25-OH Vitamin D Total PTH Intact Urine pH Urine WBC (Auto) Urine Creatinine Urine Total Protein Fluid Total Protein Vancomycin Trough Rheumatoid Factor Complement C4 Miscellaneous Test Crossmatch 10/04/16 10/04/16 10/04/16 06:30 11:45 17:54 WBC RBC Hgb Hct MCV MCH MCHC RDW Plt Count Lymph % (Auto) [place] % (Auto) Lymph # [place] # Baso # Seg Neutrophils % Seg Neuts % (Manual) Lymphocytes % (Manual) Monocytes % (Manual) Eosinophils % (Manual) Basophils % (Manual) Nucleated RBC % Seg Neutrophils # Seg Neutrophils # Man Lymphocytes # (Manual) Monocytes # (Manual) Eosinophils # (Manual) Basophils # (Manual) PT INR Fibrinogen dRVVT Confirm Interp Factor V Activity POC ABG pH POC ABG pCO2 POC ABG pO2 ABG pO2 ABG HCO3 ABG Base Excess ABG Hemoglobin Oxyhemoglobin Sodium 128 L Potassium Chloride 87.4 L Carbon Dioxide 20 L BUN 34 H Creatinine 2.9 H Glucose 127 H POC Glucose 158 H 160 H Lactic Acid Calcium 7.4 L Ionized Calcium Phosphorus Magnesium Direct Bilirubin AST ALT Alkaline Phosphatase Lactate Dehydrogenase Troponin T C-Reactive Protein Total Protein Albumin Prealbumin Triglycerides Cholesterol LDL Cholesterol Direct HDL Cholesterol 25-OH Vitamin D Total PTH Intact Urine pH Urine WBC (Auto) Urine Creatinine Urine Total Protein Fluid Total Protein Vancomycin Trough Rheumatoid Factor Complement C4 Miscellaneous Test Crossmatch 10/04/16 10/05/16 10/05/16 23:25 04:30 05:00 WBC RBC 2.64 L Hgb 7.5 L Hct 22.6 L MCV MCH MCHC RDW 19.3 H Plt Count 80 L Lymph % (Auto) [place] % (Auto) Lymph # [place] # Baso # Seg Neutrophils % Seg Neuts % (Manual) Lymphocytes % (Manual) 12.0 L Monocytes % (Manual) Eosinophils % (Manual) Basophils % (Manual) Nucleated RBC % Seg Neutrophils # Seg Neutrophils # Man Lymphocytes # (Manual) Monocytes # (Manual) Eosinophils # (Manual) Basophils # (Manual) PT INR Fibrinogen dRVVT Confirm Interp Factor V Activity POC ABG pH 7.475 H POC ABG pCO2 33.3 L POC ABG pO2 140 H ABG pO2 ABG HCO3 ABG Base Excess ABG Hemoglobin Oxyhemoglobin Sodium Potassium Chloride Carbon Dioxide BUN Creatinine Glucose POC Glucose 141 H Lactic Acid Calcium Ionized Calcium Phosphorus Magnesium Direct Bilirubin AST ALT Alkaline Phosphatase Lactate Dehydrogenase Troponin T C-Reactive Protein Total Protein Albumin Prealbumin Triglycerides Cholesterol LDL Cholesterol Direct HDL Cholesterol 25-OH Vitamin D Total PTH Intact Urine pH Urine WBC (Auto) Urine Creatinine Urine Total Protein Fluid Total Protein Vancomycin Trough Rheumatoid Factor Complement C4 Miscellaneous Test Crossmatch 10/05/16 10/05/16 10/05/16 05:00 05:09 12:58 WBC RBC Hgb Hct MCV MCH MCHC RDW Plt Count Lymph % (Auto) [place] % (Auto) Lymph # [place] # Baso # Seg Neutrophils % Seg Neuts % (Manual) Lymphocytes % (Manual) Monocytes % (Manual) Eosinophils % (Manual) Basophils % (Manual) Nucleated RBC % Seg Neutrophils # Seg Neutrophils # Man Lymphocytes # (Manual) Monocytes # (Manual) Eosinophils # (Manual) Basophils # (Manual) PT INR Fibrinogen dRVVT Confirm Interp Factor V Activity POC ABG pH POC ABG pCO2 POC ABG pO2 ABG pO2 ABG HCO3 ABG Base Excess ABG Hemoglobin Oxyhemoglobin Sodium 131 L Potassium Chloride 94.0 L Carbon Dioxide 20 L BUN 22 H Creatinine 2.0 H Glucose 123 H POC Glucose 166 H 179 H Lactic Acid Calcium 7.7 L Ionized Calcium Phosphorus 2.20 L D Magnesium Direct Bilirubin AST ALT Alkaline Phosphatase Lactate Dehydrogenase Troponin T C-Reactive Protein Total Protein Albumin Prealbumin Triglycerides Cholesterol LDL Cholesterol Direct HDL Cholesterol 25-OH Vitamin D Total PTH Intact Urine pH Urine WBC (Auto) Urine Creatinine Urine Total Protein Fluid Total Protein Vancomycin Trough Rheumatoid Factor Complement C4 Miscellaneous Test Crossmatch 10/05/16 10/05/16 10/05/16 15:50 18:53 23:12 WBC RBC Hgb Hct MCV MCH MCHC RDW Plt Count Lymph % (Auto) [place] % (Auto) Lymph # [place] # Baso # Seg Neutrophils % Seg Neuts % (Manual) Lymphocytes % (Manual) Monocytes % (Manual) Eosinophils % (Manual) Basophils % (Manual) Nucleated RBC % Seg Neutrophils # Seg Neutrophils # Man Lymphocytes # (Manual) Monocytes # (Manual) Eosinophils # (Manual) Basophils # (Manual) PT INR Fibrinogen dRVVT Confirm Interp Factor V Activity POC ABG pH POC ABG pCO2 POC ABG pO2 ABG pO2 ABG HCO3 ABG Base Excess ABG Hemoglobin Oxyhemoglobin Sodium Potassium Chloride Carbon Dioxide BUN Creatinine Glucose POC Glucose 150 H 164 H Lactic Acid Calcium Ionized Calcium Phosphorus Magnesium Direct Bilirubin AST ALT Alkaline Phosphatase Lactate Dehydrogenase Troponin T C-Reactive Protein Total Protein Albumin Prealbumin Triglycerides Cholesterol LDL Cholesterol Direct HDL Cholesterol 25-OH Vitamin D Total PTH Intact Urine pH Urine WBC (Auto) Urine Creatinine Urine Total Protein Fluid Total Protein Vancomycin Trough Rheumatoid Factor Complement C4 Miscellaneous Test Crossmatch See Detail 10/06/16 10/06/16 10/06/16 03:50 03:50 04:53 WBC RBC 3.00 L Hgb 8.6 L Hct 25.8 L MCV MCH MCHC RDW 17.9 H Plt Count 65 L Lymph % (Auto) [place] % (Auto) Lymph # [place] # Baso # Seg Neutrophils % Seg Neuts % (Manual) 30.0 L Lymphocytes % (Manual) 5.0 L Monocytes % (Manual) Eosinophils % (Manual) Basophils % (Manual) Nucleated RBC % Seg Neutrophils # Seg Neutrophils # Man Lymphocytes # (Manual) 0.4 L Monocytes # (Manual) Eosinophils # (Manual) Basophils # (Manual) PT INR Fibrinogen dRVVT Confirm Interp Factor V Activity POC ABG pH 7.310 L POC ABG pCO2 49.0 H POC ABG pO2 ABG pO2 ABG HCO3 ABG Base Excess ABG Hemoglobin Oxyhemoglobin Sodium 133 L Potassium Chloride 95.9 L Carbon Dioxide BUN 26 H Creatinine 2.0 H Glucose 116 H POC Glucose Lactic Acid Calcium 7.8 L Ionized Calcium Phosphorus Magnesium Direct Bilirubin AST ALT Alkaline Phosphatase Lactate Dehydrogenase Troponin T C-Reactive Protein Total Protein Albumin Prealbumin Triglycerides Cholesterol LDL Cholesterol Direct HDL Cholesterol 25-OH Vitamin D Total PTH Intact Urine pH Urine WBC (Auto) Urine Creatinine Urine Total Protein Fluid Total Protein Vancomycin Trough Rheumatoid Factor Complement C4 Miscellaneous Test Crossmatch 10/06/16 10/06/16 10/06/16 05:23 11:52 18:34 WBC RBC Hgb Hct MCV MCH MCHC RDW Plt Count Lymph % (Auto) [place] % (Auto) Lymph # [place] # Baso # Seg Neutrophils % Seg Neuts % (Manual) Lymphocytes % (Manual) Monocytes % (Manual) Eosinophils % (Manual) Basophils % (Manual) Nucleated RBC % Seg Neutrophils # Seg Neutrophils # Man Lymphocytes # (Manual) Monocytes # (Manual) Eosinophils # (Manual) Basophils # (Manual) PT INR Fibrinogen dRVVT Confirm Interp Factor V Activity POC ABG pH POC ABG pCO2 POC ABG pO2 ABG pO2 ABG HCO3 ABG Base Excess ABG Hemoglobin Oxyhemoglobin Sodium Potassium Chloride Carbon Dioxide BUN Creatinine Glucose POC Glucose 126 H 116 H 129 H Lactic Acid Calcium Ionized Calcium Phosphorus Magnesium Direct Bilirubin AST ALT Alkaline Phosphatase Lactate Dehydrogenase Troponin T C-Reactive Protein Total Protein Albumin Prealbumin Triglycerides Cholesterol LDL Cholesterol Direct HDL Cholesterol 25-OH Vitamin D Total PTH Intact Urine pH Urine WBC (Auto) Urine Creatinine Urine Total Protein Fluid Total Protein Vancomycin Trough Rheumatoid Factor Complement C4 Miscellaneous Test Crossmatch 10/07/16 10/07/16 10/07/16 03:45 05:00 10:00 WBC 17.0 H RBC 2.68 L Hgb 7.3 L Hct 25.3 L MCV MCH 27 L MCHC 29 L RDW 19.6 H Plt Count 74 L Lymph % (Auto) [place] % (Auto) Lymph # [place] # Baso # Seg Neutrophils % Seg Neuts % (Manual) Lymphocytes % (Manual) 12.0 L Monocytes % (Manual) Eosinophils % (Manual) Basophils % (Manual) Nucleated RBC % 4.0 H Seg Neutrophils # Seg Neutrophils # Man 10.7 H Lymphocytes # (Manual) Monocytes # (Manual) Eosinophils # (Manual) Basophils # (Manual) PT INR Fibrinogen dRVVT Confirm Interp Factor V Activity POC ABG pH POC ABG pCO2 POC ABG pO2 ABG pO2 ABG HCO3 ABG Base Excess ABG Hemoglobin Oxyhemoglobin Sodium 130 L Potassium 3.2 L Chloride 93.9 L Carbon Dioxide 20 L BUN 44 H Creatinine 2.7 H Glucose 129 H POC Glucose Lactic Acid Calcium 7.4 L Ionized Calcium Phosphorus Magnesium Direct Bilirubin AST ALT 6 L Alkaline Phosphatase 195 H Lactate Dehydrogenase Troponin T C-Reactive Protein Total Protein 4.9 L Albumin 1.0 L Prealbumin Triglycerides Cholesterol LDL Cholesterol Direct HDL Cholesterol 25-OH Vitamin D Total PTH Intact Urine pH Urine WBC (Auto) Urine Creatinine Urine Total Protein Fluid Total Protein Vancomycin Trough Rheumatoid Factor Complement C4 Miscellaneous Test Flexitest 1 H Crossmatch 10/07/16 10/07/16 10/07/16 10:00 11:24 18:10 WBC RBC Hgb Hct MCV MCH MCHC RDW Plt Count Lymph % (Auto) [place] % (Auto) Lymph # [place] # Baso # Seg Neutrophils % Seg Neuts % (Manual) Lymphocytes % (Manual) Monocytes % (Manual) Eosinophils % (Manual) Basophils % (Manual) Nucleated RBC % Seg Neutrophils # Seg Neutrophils # Man Lymphocytes # (Manual) Monocytes # (Manual) Eosinophils # (Manual) Basophils # (Manual) PT INR Fibrinogen dRVVT Confirm Interp Factor V Activity POC ABG pH POC ABG pCO2 POC ABG pO2 ABG pO2 ABG HCO3 ABG Base Excess ABG Hemoglobin Oxyhemoglobin Sodium Potassium Chloride Carbon Dioxide BUN Creatinine Glucose POC Glucose 116 H 130 H Lactic Acid Calcium Ionized Calcium Phosphorus Magnesium Direct Bilirubin AST ALT Alkaline Phosphatase Lactate Dehydrogenase Troponin T C-Reactive Protein 19.40 H Total Protein Albumin Prealbumin Triglycerides Cholesterol LDL Cholesterol Direct HDL Cholesterol 25-OH Vitamin D Total PTH Intact Urine pH Urine WBC (Auto) Urine Creatinine Urine Total Protein Fluid Total Protein Vancomycin Trough Rheumatoid Factor Complement C4 Miscellaneous Test Crossmatch 10/07/16 10/08/16 10/08/16 18:30 00:00 04:00 WBC RBC Hgb Hct MCV MCH MCHC RDW Plt Count Lymph % (Auto) [place] % (Auto) Lymph # [place] # Baso # Seg Neutrophils % Seg Neuts % (Manual) Lymphocytes % (Manual) Monocytes % (Manual) Eosinophils % (Manual) Basophils % (Manual) Nucleated RBC % Seg Neutrophils # Seg Neutrophils # Man Lymphocytes # (Manual) Monocytes # (Manual) Eosinophils # (Manual) Basophils # (Manual) PT INR Fibrinogen dRVVT Confirm Interp Factor V Activity POC ABG pH POC ABG pCO2 POC ABG pO2 ABG pO2 ABG HCO3 ABG Base Excess ABG Hemoglobin Oxyhemoglobin Sodium 132 L Potassium 3.3 L Chloride 93.6 L Carbon Dioxide 17 L BUN 59 H Creatinine 2.7 H Glucose 121 H POC Glucose 122 H Lactic Acid Calcium 7.6 L Ionized Calcium Phosphorus Magnesium Direct Bilirubin AST ALT Alkaline Phosphatase Lactate Dehydrogenase Troponin T C-Reactive Protein Total Protein Albumin Prealbumin Triglycerides Cholesterol LDL Cholesterol Direct HDL Cholesterol 25-OH Vitamin D Total PTH Intact Urine pH Urine WBC (Auto) > 182.0 H Urine Creatinine Urine Total Protein Fluid Total Protein Vancomycin Trough Rheumatoid Factor Complement C4 Miscellaneous Test Crossmatch 10/08/16 10/08/16 10/08/16 04:30 05:30 11:51 WBC RBC 5.15 H Hgb 14.4 H D Hct 44.5 H D MCV MCH MCHC RDW 19.5 H Plt Count 56 L Lymph % (Auto) [place] % (Auto) Lymph # [place] # Baso # Seg Neutrophils % Seg Neuts % (Manual) 24.0 L Lymphocytes % (Manual) 8.0 L Monocytes % (Manual) Eosinophils % (Manual) Basophils % (Manual) Nucleated RBC % 9.0 H Seg Neutrophils # Seg Neutrophils # Man Lymphocytes # (Manual) 0.7 L Monocytes # (Manual) Eosinophils # (Manual) Basophils # (Manual) PT INR Fibrinogen dRVVT Confirm Interp Factor V Activity POC ABG pH POC ABG pCO2 POC ABG pO2 ABG pO2 ABG HCO3 ABG Base Excess ABG Hemoglobin Oxyhemoglobin Sodium Potassium Chloride Carbon Dioxide BUN Creatinine Glucose POC Glucose 125 H 150 H Lactic Acid Calcium Ionized Calcium Phosphorus Magnesium Direct Bilirubin AST ALT Alkaline Phosphatase Lactate Dehydrogenase Troponin T C-Reactive Protein Total Protein Albumin Prealbumin Triglycerides Cholesterol LDL Cholesterol Direct HDL Cholesterol 25-OH Vitamin D Total PTH Intact Urine pH Urine WBC (Auto) Urine Creatinine Urine Total Protein Fluid Total Protein Vancomycin Trough Rheumatoid Factor Complement C4 Miscellaneous Test Crossmatch 10/08/16 10/08/16 10/08/16 12:49 17:07 19:30 WBC RBC Hgb 7.1 L D Hct 22.4 L D MCV MCH MCHC RDW Plt Count Lymph % (Auto) [place] % (Auto) Lymph # [place] # Baso # Seg Neutrophils % Seg Neuts % (Manual) Lymphocytes % (Manual) Monocytes % (Manual) Eosinophils % (Manual) Basophils % (Manual) Nucleated RBC % Seg Neutrophils # Seg Neutrophils # Man Lymphocytes # (Manual) Monocytes # (Manual) Eosinophils # (Manual) Basophils # (Manual) PT INR Fibrinogen dRVVT Confirm Interp Factor V Activity POC ABG pH POC ABG pCO2 28.2 L POC ABG pO2 111 H ABG pO2 ABG HCO3 ABG Base Excess ABG Hemoglobin Oxyhemoglobin Sodium Potassium Chloride Carbon Dioxide BUN Creatinine Glucose POC Glucose 145 H Lactic Acid Calcium Ionized Calcium Phosphorus Magnesium Direct Bilirubin AST ALT Alkaline Phosphatase Lactate Dehydrogenase Troponin T C-Reactive Protein Total Protein Albumin Prealbumin Triglycerides Cholesterol LDL Cholesterol Direct HDL Cholesterol 25-OH Vitamin D Total PTH Intact Urine pH Urine WBC (Auto) Urine Creatinine Urine Total Protein Fluid Total Protein Vancomycin Trough Rheumatoid Factor Complement C4 Miscellaneous Test Crossmatch 10/08/16 10/09/16 10/09/16 19:30 03:45 03:45 WBC 12.6 H RBC 2.36 L Hgb 6.7 L Hct 21.1 L MCV MCH MCHC RDW 19.5 H Plt Count 75 L Lymph % (Auto) [place] % (Auto) Lymph # [place] # Baso # Seg Neutrophils % Seg Neuts % (Manual) Lymphocytes % (Manual) Monocytes % (Manual) 10.0 H Eosinophils % (Manual) Basophils % (Manual) Nucleated RBC % 3.0 H Seg Neutrophils # Seg Neutrophils # Man Lymphocytes # (Manual) Monocytes # (Manual) 1.3 H Eosinophils # (Manual) Basophils # (Manual) PT 18.0 H INR 1.41 H Fibrinogen dRVVT Confirm Interp Factor V Activity POC ABG pH POC ABG pCO2 POC ABG pO2 ABG pO2 ABG HCO3 ABG Base Excess ABG Hemoglobin Oxyhemoglobin Sodium 135 L Potassium Chloride Carbon Dioxide 17 L BUN 81 H Creatinine 3.2 H Glucose 109 H POC Glucose Lactic Acid Calcium 7.4 L Ionized Calcium Phosphorus 4.60 H D Magnesium Direct Bilirubin AST ALT Alkaline Phosphatase Lactate Dehydrogenase Troponin T C-Reactive Protein Total Protein Albumin Prealbumin Triglycerides Cholesterol LDL Cholesterol Direct HDL Cholesterol 25-OH Vitamin D Total PTH Intact Urine pH Urine WBC (Auto) Urine Creatinine Urine Total Protein Fluid Total Protein Vancomycin Trough Rheumatoid Factor Complement C4 Miscellaneous Test Crossmatch 10/09/16 10/09/16 10/09/16 03:45 05:14 07:20 WBC RBC Hgb Hct MCV MCH MCHC RDW Plt Count Lymph % (Auto) [place] % (Auto) Lymph # [place] # Baso # Seg Neutrophils % Seg Neuts % (Manual) Lymphocytes % (Manual) Monocytes % (Manual) Eosinophils % (Manual) Basophils % (Manual) Nucleated RBC % Seg Neutrophils # Seg Neutrophils # Man Lymphocytes # (Manual) Monocytes # (Manual) Eosinophils # (Manual) Basophils # (Manual) PT 19.0 H INR 1.51 H Fibrinogen dRVVT Confirm Interp Factor V Activity POC ABG pH POC ABG pCO2 POC ABG pO2 ABG pO2 ABG HCO3 ABG Base Excess ABG Hemoglobin Oxyhemoglobin Sodium Potassium Chloride Carbon Dioxide BUN Creatinine Glucose POC Glucose 151 H Lactic Acid Calcium Ionized Calcium Phosphorus Magnesium Direct Bilirubin AST ALT Alkaline Phosphatase Lactate Dehydrogenase Troponin T C-Reactive Protein Total Protein Albumin Prealbumin Triglycerides Cholesterol LDL Cholesterol Direct HDL Cholesterol 25-OH Vitamin D Total PTH Intact Urine pH Urine WBC (Auto) Urine Creatinine Urine Total Protein Fluid Total Protein Vancomycin Trough Rheumatoid Factor Complement C4 Miscellaneous Test Crossmatch See Detail 10/09/16 10/09/16 10/09/16 11:46 16:20 16:43 WBC RBC Hgb 7.2 L Hct 22.2 L MCV MCH MCHC RDW Plt Count Lymph % (Auto) [place] % (Auto) Lymph # [place] # Baso # Seg Neutrophils % Seg Neuts % (Manual) Lymphocytes % (Manual) Monocytes % (Manual) Eosinophils % (Manual) Basophils % (Manual) Nucleated RBC % Seg Neutrophils # Seg Neutrophils # Man Lymphocytes # (Manual) Monocytes # (Manual) Eosinophils # (Manual) Basophils # (Manual) PT INR Fibrinogen dRVVT Confirm Interp Factor V Activity POC ABG pH POC ABG pCO2 POC ABG pO2 ABG pO2 ABG HCO3 ABG Base Excess ABG Hemoglobin Oxyhemoglobin Sodium Potassium Chloride Carbon Dioxide BUN Creatinine Glucose POC Glucose 133 H 141 H Lactic Acid Calcium Ionized Calcium Phosphorus Magnesium Direct Bilirubin AST ALT Alkaline Phosphatase Lactate Dehydrogenase Troponin T C-Reactive Protein Total Protein Albumin Prealbumin Triglycerides Cholesterol LDL Cholesterol Direct HDL Cholesterol 25-OH Vitamin D Total PTH Intact Urine pH Urine WBC (Auto) Urine Creatinine Urine Total Protein Fluid Total Protein Vancomycin Trough Rheumatoid Factor Complement C4 Miscellaneous Test Crossmatch 10/10/16 10/10/16 10/10/16 05:00 05:00 11:19 WBC 18.5 H RBC 2.19 L Hgb 6.4 L Hct 19.6 L* MCV MCH MCHC RDW 19.3 H Plt Count 93 L Lymph % (Auto) [place] % (Auto) Lymph # [place] # Baso # Seg Neutrophils % Seg Neuts % (Manual) Lymphocytes % (Manual) 10.0 L Monocytes % (Manual) Eosinophils % (Manual) Basophils % (Manual) Nucleated RBC % 4.0 H Seg Neutrophils # Seg Neutrophils # Man 11.3 H Lymphocytes # (Manual) Monocytes # (Manual) Eosinophils # (Manual) Basophils # (Manual) PT INR Fibrinogen dRVVT Confirm Interp Factor V Activity POC ABG pH POC ABG pCO2 POC ABG pO2 ABG pO2 ABG HCO3 ABG Base Excess ABG Hemoglobin Oxyhemoglobin Sodium Potassium 5.7 H D Chloride Carbon Dioxide 16 L BUN 94 H Creatinine 3.1 H Glucose 131 H POC Glucose 153 H Lactic Acid Calcium 8.2 L Ionized Calcium Phosphorus 5.10 H Magnesium 2.40 H Direct Bilirubin 0.3 H AST ALT < 5 L Alkaline Phosphatase 319 H Lactate Dehydrogenase Troponin T C-Reactive Protein Total Protein 5.1 L Albumin 1.0 L Prealbumin Triglycerides Cholesterol LDL Cholesterol Direct HDL Cholesterol 25-OH Vitamin D Total PTH Intact Urine pH Urine WBC (Auto) Urine Creatinine Urine Total Protein Fluid Total Protein Vancomycin Trough Rheumatoid Factor Complement C4 Miscellaneous Test Crossmatch 10/10/16 10/10/16 10/11/16 17:50 23:30 04:15 WBC RBC Hgb Hct MCV MCH MCHC RDW Plt Count Lymph % (Auto) [place] % (Auto) Lymph # [place] # Baso # Seg Neutrophils % Seg Neuts % (Manual) Lymphocytes % (Manual) Monocytes % (Manual) Eosinophils % (Manual) Basophils % (Manual) Nucleated RBC % Seg Neutrophils # Seg Neutrophils # Man Lymphocytes # (Manual) Monocytes # (Manual) Eosinophils # (Manual) Basophils # (Manual) PT INR Fibrinogen dRVVT Confirm Interp Factor V Activity POC ABG pH POC ABG pCO2 POC ABG pO2 ABG pO2 ABG HCO3 ABG Base Excess ABG Hemoglobin Oxyhemoglobin Sodium Potassium Chloride 96.4 L Carbon Dioxide 21 L BUN 57 H Creatinine 2.1 H Glucose 151 H POC Glucose 146 H 141 H Lactic Acid Calcium 8.3 L Ionized Calcium Phosphorus Magnesium Direct Bilirubin AST ALT Alkaline Phosphatase Lactate Dehydrogenase Troponin T C-Reactive Protein Total Protein Albumin Prealbumin Triglycerides Cholesterol LDL Cholesterol Direct HDL Cholesterol 25-OH Vitamin D Total PTH Intact Urine pH Urine WBC (Auto) Urine Creatinine Urine Total Protein Fluid Total Protein Vancomycin Trough Rheumatoid Factor Complement C4 Miscellaneous Test Crossmatch 10/11/16 10/11/16 10/11/16 04:15 04:15 05:30 WBC 28.3 H RBC 3.12 L Hgb 9.3 L Hct 28.7 L D MCV MCH MCHC RDW 17.7 H Plt Count 128 L Lymph % (Auto) [place] % (Auto) Lymph # [place] # Baso # Seg Neutrophils % Seg Neuts % (Manual) Lymphocytes % (Manual) Monocytes % (Manual) Eosinophils % (Manual) Basophils % (Manual) Nucleated RBC % Seg Neutrophils # Seg Neutrophils # Man Lymphocytes # (Manual) Monocytes # (Manual) Eosinophils # (Manual) Basophils # (Manual) PT INR Fibrinogen dRVVT Confirm Interp Factor V Activity POC ABG pH POC ABG pCO2 POC ABG pO2 ABG pO2 ABG HCO3 ABG Base Excess ABG Hemoglobin Oxyhemoglobin Sodium Potassium Chloride Carbon Dioxide BUN Creatinine Glucose POC Glucose 167 H Lactic Acid Calcium Ionized Calcium Phosphorus Magnesium Direct Bilirubin AST ALT Alkaline Phosphatase Lactate Dehydrogenase Troponin T C-Reactive Protein 15.80 H Total Protein Albumin Prealbumin Triglycerides Cholesterol LDL Cholesterol Direct HDL Cholesterol 25-OH Vitamin D Total PTH Intact Urine pH Urine WBC (Auto) Urine Creatinine Urine Total Protein Fluid Total Protein Vancomycin Trough Rheumatoid Factor Complement C4 Miscellaneous Test Crossmatch 10/11/16 10/11/16 10/11/16 11:40 15:49 23:57 WBC RBC Hgb Hct MCV MCH MCHC RDW Plt Count Lymph % (Auto) [place] % (Auto) Lymph # [place] # Baso # Seg Neutrophils % Seg Neuts % (Manual) Lymphocytes % (Manual) Monocytes % (Manual) Eosinophils % (Manual) Basophils % (Manual) Nucleated RBC % Seg Neutrophils # Seg Neutrophils # Man Lymphocytes # (Manual) Monocytes # (Manual) Eosinophils # (Manual) Basophils # (Manual) PT INR Fibrinogen dRVVT Confirm Interp Factor V Activity POC ABG pH POC ABG pCO2 POC ABG pO2 ABG pO2 ABG HCO3 ABG Base Excess ABG Hemoglobin Oxyhemoglobin Sodium Potassium Chloride Carbon Dioxide BUN Creatinine Glucose POC Glucose 139 H 168 H 161 H Lactic Acid Calcium Ionized Calcium Phosphorus Magnesium Direct Bilirubin AST ALT Alkaline Phosphatase Lactate Dehydrogenase Troponin T C-Reactive Protein Total Protein Albumin Prealbumin Triglycerides Cholesterol LDL Cholesterol Direct HDL Cholesterol 25-OH Vitamin D Total PTH Intact Urine pH Urine WBC (Auto) Urine Creatinine Urine Total Protein Fluid Total Protein Vancomycin Trough Rheumatoid Factor Complement C4 Miscellaneous Test Crossmatch 10/12/16 10/12/16 10/12/16 04:40 04:40 05:44 WBC 22.5 H RBC 2.88 L Hgb 8.8 L Hct 26.8 L MCV MCH MCHC RDW 17.8 H Plt Count Lymph % (Auto) [place] % (Auto) Lymph # [place] # Baso # Seg Neutrophils % Seg Neuts % (Manual) Lymphocytes % (Manual) Monocytes % (Manual) Eosinophils % (Manual) Basophils % (Manual) Nucleated RBC % Seg Neutrophils # Seg Neutrophils # Man Lymphocytes # (Manual) Monocytes # (Manual) Eosinophils # (Manual) Basophils # (Manual) PT INR Fibrinogen dRVVT Confirm Interp Factor V Activity POC ABG pH POC ABG pCO2 POC ABG pO2 ABG pO2 ABG HCO3 ABG Base Excess ABG Hemoglobin Oxyhemoglobin Sodium 134 L Potassium Chloride 93.0 L Carbon Dioxide BUN 74 H Creatinine 2.5 H Glucose 137 H POC Glucose 158 H Lactic Acid Calcium 8.2 L Ionized Calcium Phosphorus Magnesium Direct Bilirubin AST ALT Alkaline Phosphatase Lactate Dehydrogenase Troponin T C-Reactive Protein Total Protein Albumin Prealbumin Triglycerides Cholesterol LDL Cholesterol Direct HDL Cholesterol 25-OH Vitamin D Total PTH Intact Urine pH Urine WBC (Auto) Urine Creatinine Urine Total Protein Fluid Total Protein Vancomycin Trough Rheumatoid Factor Complement C4 Miscellaneous Test Crossmatch 10/12/16 10/12/16 10/12/16 12:27 18:18 23:46 WBC RBC Hgb Hct MCV MCH MCHC RDW Plt Count Lymph % (Auto) [place] % (Auto) Lymph # [place] # Baso # Seg Neutrophils % Seg Neuts % (Manual) Lymphocytes % (Manual) Monocytes % (Manual) Eosinophils % (Manual) Basophils % (Manual) Nucleated RBC % Seg Neutrophils # Seg Neutrophils # Man Lymphocytes # (Manual) Monocytes # (Manual) Eosinophils # (Manual) Basophils # (Manual) PT INR Fibrinogen dRVVT Confirm Interp Factor V Activity POC ABG pH POC ABG pCO2 POC ABG pO2 ABG pO2 ABG HCO3 ABG Base Excess ABG Hemoglobin Oxyhemoglobin Sodium Potassium Chloride Carbon Dioxide BUN Creatinine Glucose POC Glucose 153 H 140 H 150 H Lactic Acid Calcium Ionized Calcium Phosphorus Magnesium Direct Bilirubin AST ALT Alkaline Phosphatase Lactate Dehydrogenase Troponin T C-Reactive Protein Total Protein Albumin Prealbumin Triglycerides Cholesterol LDL Cholesterol Direct HDL Cholesterol 25-OH Vitamin D Total PTH Intact Urine pH Urine WBC (Auto) Urine Creatinine Urine Total Protein Fluid Total Protein Vancomycin Trough Rheumatoid Factor Complement C4 Miscellaneous Test Crossmatch 10/13/16 10/13/16 10/13/16 06:22 09:20 12:29 WBC RBC Hgb Hct MCV MCH MCHC RDW Plt Count Lymph % (Auto) [place] % (Auto) Lymph # [place] # Baso # Seg Neutrophils % Seg Neuts % (Manual) Lymphocytes % (Manual) Monocytes % (Manual) Eosinophils % (Manual) Basophils % (Manual) Nucleated RBC % Seg Neutrophils # Seg Neutrophils # Man Lymphocytes # (Manual) Monocytes # (Manual) Eosinophils # (Manual) Basophils # (Manual) PT INR Fibrinogen dRVVT Confirm Interp Factor V Activity POC ABG pH POC ABG pCO2 POC ABG pO2 ABG pO2 ABG HCO3 ABG Base Excess ABG Hemoglobin Oxyhemoglobin Sodium Potassium Chloride Carbon Dioxide BUN Creatinine Glucose POC Glucose 165 H 193 H Lactic Acid Calcium Ionized Calcium Phosphorus Magnesium Direct Bilirubin AST ALT Alkaline Phosphatase Lactate Dehydrogenase Troponin T C-Reactive Protein Total Protein Albumin Prealbumin Triglycerides Cholesterol LDL Cholesterol Direct HDL Cholesterol 25-OH Vitamin D Total PTH Intact Urine pH Urine WBC (Auto) Urine Creatinine Urine Total Protein Fluid Total Protein Vancomycin Trough Rheumatoid Factor Complement C4 Miscellaneous Test Flexitest 1 H Crossmatch 10/13/16 10/13/16 10/13/16 18:09 Unknown Unknown WBC 23.4 H RBC 2.83 L Hgb 8.7 L Hct 26.1 L MCV MCH MCHC RDW 18.1 H Plt Count Lymph % (Auto) [place] % (Auto) Lymph # [place] # Baso # Seg Neutrophils % Seg Neuts % (Manual) Lymphocytes % (Manual) Monocytes % (Manual) Eosinophils % (Manual) Basophils % (Manual) Nucleated RBC % Seg Neutrophils # Seg Neutrophils # Man Lymphocytes # (Manual) Monocytes # (Manual) Eosinophils # (Manual) Basophils # (Manual) PT INR Fibrinogen dRVVT Confirm Interp Factor V Activity POC ABG pH POC ABG pCO2 POC ABG pO2 ABG pO2 ABG HCO3 ABG Base Excess ABG Hemoglobin Oxyhemoglobin Sodium Potassium Chloride 95.8 L Carbon Dioxide BUN 82 H Creatinine 2.6 H Glucose 152 H POC Glucose 166 H Lactic Acid Calcium Ionized Calcium Phosphorus Magnesium Direct Bilirubin AST ALT Alkaline Phosphatase Lactate Dehydrogenase Troponin T C-Reactive Protein Total Protein Albumin Prealbumin Triglycerides Cholesterol LDL Cholesterol Direct HDL Cholesterol 25-OH Vitamin D Total PTH Intact Urine pH Urine WBC (Auto) Urine Creatinine Urine Total Protein Fluid Total Protein Vancomycin Trough Rheumatoid Factor Complement C4 Miscellaneous Test Crossmatch 10/14/16 10/14/16 10/14/16 05:38 06:35 08:10 WBC 20.7 H RBC 2.81 L Hgb 8.4 L Hct 27.2 L MCV MCH MCHC RDW 19.4 H Plt Count Lymph % (Auto) [place] % (Auto) Lymph # [place] # Baso # Seg Neutrophils % Seg Neuts % (Manual) Lymphocytes % (Manual) Monocytes % (Manual) Eosinophils % (Manual) Basophils % (Manual) Nucleated RBC % Seg Neutrophils # Seg Neutrophils # Man Lymphocytes # (Manual) Monocytes # (Manual) Eosinophils # (Manual) Basophils # (Manual) PT INR Fibrinogen dRVVT Confirm Interp Factor V Activity POC ABG pH POC ABG pCO2 POC ABG pO2 ABG pO2 ABG HCO3 ABG Base Excess ABG Hemoglobin Oxyhemoglobin Sodium Potassium Chloride Carbon Dioxide BUN 58 H Creatinine 1.9 H Glucose 169 H POC Glucose 195 H Lactic Acid Calcium Ionized Calcium Phosphorus Magnesium Direct Bilirubin AST ALT Alkaline Phosphatase Lactate Dehydrogenase Troponin T C-Reactive Protein Total Protein Albumin Prealbumin Triglycerides Cholesterol LDL Cholesterol Direct HDL Cholesterol 25-OH Vitamin D Total PTH Intact Urine pH Urine WBC (Auto) Urine Creatinine Urine Total Protein Fluid Total Protein Vancomycin Trough Rheumatoid Factor Complement C4 Miscellaneous Test Crossmatch 10/14/16 10/14/16 10/14/16 11:44 17:13 23:28 WBC RBC Hgb Hct MCV MCH MCHC RDW Plt Count Lymph % (Auto) [place] % (Auto) Lymph # [place] # Baso # Seg Neutrophils % Seg Neuts % (Manual) Lymphocytes % (Manual) Monocytes % (Manual) Eosinophils % (Manual) Basophils % (Manual) Nucleated RBC % Seg Neutrophils # Seg Neutrophils # Man Lymphocytes # (Manual) Monocytes # (Manual) Eosinophils # (Manual) Basophils # (Manual) PT INR Fibrinogen dRVVT Confirm Interp Factor V Activity POC ABG pH POC ABG pCO2 POC ABG pO2 ABG pO2 ABG HCO3 ABG Base Excess ABG Hemoglobin Oxyhemoglobin Sodium Potassium Chloride Carbon Dioxide BUN Creatinine Glucose POC Glucose 174 H 121 H 151 H Lactic Acid Calcium Ionized Calcium Phosphorus Magnesium Direct Bilirubin AST ALT Alkaline Phosphatase Lactate Dehydrogenase Troponin T C-Reactive Protein Total Protein Albumin Prealbumin Triglycerides Cholesterol LDL Cholesterol Direct HDL Cholesterol 25-OH Vitamin D Total PTH Intact Urine pH Urine WBC (Auto) Urine Creatinine Urine Total Protein Fluid Total Protein Vancomycin Trough Rheumatoid Factor Complement C4 Miscellaneous Test Crossmatch 10/15/16 10/15/16 10/15/16 05:06 12:26 17:48 WBC RBC Hgb Hct MCV MCH MCHC RDW Plt Count Lymph % (Auto) [place] % (Auto) Lymph # [place] # Baso # Seg Neutrophils % Seg Neuts % (Manual) Lymphocytes % (Manual) Monocytes % (Manual) Eosinophils % (Manual) Basophils % (Manual) Nucleated RBC % Seg Neutrophils # Seg Neutrophils # Man Lymphocytes # (Manual) Monocytes # (Manual) Eosinophils # (Manual) Basophils # (Manual) PT INR Fibrinogen dRVVT Confirm Interp Factor V Activity POC ABG pH POC ABG pCO2 POC ABG pO2 ABG pO2 ABG HCO3 ABG Base Excess ABG Hemoglobin Oxyhemoglobin Sodium Potassium Chloride Carbon Dioxide BUN Creatinine Glucose POC Glucose 151 H 149 H 153 H Lactic Acid Calcium Ionized Calcium Phosphorus Magnesium Direct Bilirubin AST ALT Alkaline Phosphatase Lactate Dehydrogenase Troponin T C-Reactive Protein Total Protein Albumin Prealbumin Triglycerides Cholesterol LDL Cholesterol Direct HDL Cholesterol 25-OH Vitamin D Total PTH Intact Urine pH Urine WBC (Auto) Urine Creatinine Urine Total Protein Fluid Total Protein Vancomycin Trough Rheumatoid Factor Complement C4 Miscellaneous Test Crossmatch 10/15/16 10/15/16 10/16/16 Unknown Unknown 00:02 WBC 23.4 H RBC 2.78 L Hgb 8.5 L Hct 25.7 L MCV MCH MCHC RDW 18.7 H Plt Count Lymph % (Auto) [place] % (Auto) Lymph # [place] # Baso # Seg Neutrophils % Seg Neuts % (Manual) Lymphocytes % (Manual) Monocytes % (Manual) Eosinophils % (Manual) Basophils % (Manual) Nucleated RBC % Seg Neutrophils # Seg Neutrophils # Man Lymphocytes # (Manual) Monocytes # (Manual) Eosinophils # (Manual) Basophils # (Manual) PT INR Fibrinogen dRVVT Confirm Interp Factor V Activity POC ABG pH POC ABG pCO2 POC ABG pO2 ABG pO2 ABG HCO3 ABG Base Excess ABG Hemoglobin Oxyhemoglobin Sodium Potassium Chloride Carbon Dioxide BUN 73 H Creatinine 2.3 H Glucose 120 H POC Glucose 137 H Lactic Acid Calcium Ionized Calcium Phosphorus Magnesium Direct Bilirubin AST ALT Alkaline Phosphatase Lactate Dehydrogenase Troponin T C-Reactive Protein Total Protein Albumin Prealbumin Triglycerides Cholesterol LDL Cholesterol Direct HDL Cholesterol 25-OH Vitamin D Total PTH Intact Urine pH Urine WBC (Auto) Urine Creatinine Urine Total Protein Fluid Total Protein Vancomycin Trough Rheumatoid Factor Complement C4 Miscellaneous Test Crossmatch 10/16/16 10/16/16 10/16/16 05:44 06:25 06:25 WBC 22.5 H RBC 2.76 L Hgb 8.3 L Hct 25.2 L MCV MCH MCHC RDW 18.3 H Plt Count Lymph % (Auto) [place] % (Auto) Lymph # [place] # Baso # Seg Neutrophils % Seg Neuts % (Manual) Lymphocytes % (Manual) Monocytes % (Manual) Eosinophils % (Manual) Basophils % (Manual) Nucleated RBC % Seg Neutrophils # Seg Neutrophils # Man Lymphocytes # (Manual) Monocytes # (Manual) Eosinophils # (Manual) Basophils # (Manual) PT INR Fibrinogen dRVVT Confirm Interp Factor V Activity POC ABG pH POC ABG pCO2 POC ABG pO2 ABG pO2 ABG HCO3 ABG Base Excess ABG Hemoglobin Oxyhemoglobin Sodium Potassium Chloride Carbon Dioxide BUN 92 H Creatinine 3.0 H Glucose 138 H POC Glucose 110 H Lactic Acid Calcium Ionized Calcium Phosphorus Magnesium Direct Bilirubin AST ALT Alkaline Phosphatase Lactate Dehydrogenase Troponin T C-Reactive Protein Total Protein Albumin Prealbumin Triglycerides Cholesterol LDL Cholesterol Direct HDL Cholesterol 25-OH Vitamin D Total PTH Intact Urine pH Urine WBC (Auto) Urine Creatinine Urine Total Protein Fluid Total Protein Vancomycin Trough Rheumatoid Factor Complement C4 Miscellaneous Test Crossmatch 10/16/16 10/16/16 10/16/16 11:27 11:48 17:36 WBC RBC Hgb Hct MCV MCH MCHC RDW Plt Count Lymph % (Auto) [place] % (Auto) Lymph # [place] # Baso # Seg Neutrophils % Seg Neuts % (Manual) Lymphocytes % (Manual) Monocytes % (Manual) Eosinophils % (Manual) Basophils % (Manual) Nucleated RBC % Seg Neutrophils # Seg Neutrophils # Man Lymphocytes # (Manual) Monocytes # (Manual) Eosinophils # (Manual) Basophils # (Manual) PT INR Fibrinogen dRVVT Confirm Interp Factor V Activity POC ABG pH 7.582 H POC ABG pCO2 27.4 L POC ABG pO2 110 H ABG pO2 ABG HCO3 ABG Base Excess ABG Hemoglobin Oxyhemoglobin Sodium Potassium Chloride Carbon Dioxide BUN Creatinine Glucose POC Glucose 121 H 133 H Lactic Acid Calcium Ionized Calcium Phosphorus Magnesium Direct Bilirubin AST ALT Alkaline Phosphatase Lactate Dehydrogenase Troponin T C-Reactive Protein Total Protein Albumin Prealbumin Triglycerides Cholesterol LDL Cholesterol Direct HDL Cholesterol 25-OH Vitamin D Total PTH Intact Urine pH Urine WBC (Auto) Urine Creatinine Urine Total Protein Fluid Total Protein Vancomycin Trough Rheumatoid Factor Complement C4 Miscellaneous Test Crossmatch 10/16/16 10/17/16 10/17/16 20:48 04:24 04:24 WBC 21.4 H RBC 2.72 L Hgb 8.0 L Hct 25.2 L MCV MCH MCHC RDW 18.0 H Plt Count Lymph % (Auto) [place] % (Auto) Lymph # [place] # Baso # Seg Neutrophils % Seg Neuts % (Manual) Lymphocytes % (Manual) Monocytes % (Manual) Eosinophils % (Manual) Basophils % (Manual) Nucleated RBC % Seg Neutrophils # Seg Neutrophils # Man Lymphocytes # (Manual) Monocytes # (Manual) Eosinophils # (Manual) Basophils # (Manual) PT INR Fibrinogen dRVVT Confirm Interp Factor V Activity POC ABG pH 7.561 H POC ABG pCO2 24.4 L POC ABG pO2 77 L ABG pO2 ABG HCO3 ABG Base Excess ABG Hemoglobin Oxyhemoglobin Sodium 148 H Potassium Chloride Carbon Dioxide BUN 104 H Creatinine 3.0 H Glucose 149 H POC Glucose Lactic Acid Calcium Ionized Calcium Phosphorus Magnesium Direct Bilirubin AST ALT Alkaline Phosphatase 138 H Lactate Dehydrogenase Troponin T C-Reactive Protein Total Protein 6.2 L Albumin 1.5 L Prealbumin Triglycerides Cholesterol LDL Cholesterol Direct HDL Cholesterol 25-OH Vitamin D Total PTH Intact Urine pH Urine WBC (Auto) Urine Creatinine Urine Total Protein Fluid Total Protein Vancomycin Trough Rheumatoid Factor Complement C4 Miscellaneous Test Crossmatch 10/17/16 10/17/16 10/17/16 06:02 12:17 17:14 WBC RBC Hgb Hct MCV MCH MCHC RDW Plt Count Lymph % (Auto) [place] % (Auto) Lymph # [place] # Baso # Seg Neutrophils % Seg Neuts % (Manual) Lymphocytes % (Manual) Monocytes % (Manual) Eosinophils % (Manual) Basophils % (Manual) Nucleated RBC % Seg Neutrophils # Seg Neutrophils # Man Lymphocytes # (Manual) Monocytes # (Manual) Eosinophils # (Manual) Basophils # (Manual) PT INR Fibrinogen dRVVT Confirm Interp Factor V Activity POC ABG pH POC ABG pCO2 POC ABG pO2 ABG pO2 ABG HCO3 ABG Base Excess ABG Hemoglobin Oxyhemoglobin Sodium Potassium Chloride Carbon Dioxide BUN Creatinine Glucose POC Glucose 170 H 167 H 126 H Lactic Acid Calcium Ionized Calcium Phosphorus Magnesium Direct Bilirubin AST ALT Alkaline Phosphatase Lactate Dehydrogenase Troponin T C-Reactive Protein Total Protein Albumin Prealbumin Triglycerides Cholesterol LDL Cholesterol Direct HDL Cholesterol 25-OH Vitamin D Total PTH Intact Urine pH Urine WBC (Auto) Urine Creatinine Urine Total Protein Fluid Total Protein Vancomycin Trough Rheumatoid Factor Complement C4 Miscellaneous Test Crossmatch 10/17/16 10/18/16 10/18/16 23:17 04:00 04:00 WBC 20.7 H RBC 2.47 L Hgb 7.4 L Hct 22.9 L MCV MCH MCHC RDW 17.5 H Plt Count Lymph % (Auto) [place] % (Auto) Lymph # [place] # Baso # Seg Neutrophils % Seg Neuts % (Manual) Lymphocytes % (Manual) Monocytes % (Manual) Eosinophils % (Manual) Basophils % (Manual) Nucleated RBC % Seg Neutrophils # Seg Neutrophils # Man Lymphocytes # (Manual) Monocytes # (Manual) Eosinophils # (Manual) Basophils # (Manual) PT INR Fibrinogen dRVVT Confirm Interp Factor V Activity POC ABG pH POC ABG pCO2 POC ABG pO2 ABG pO2 ABG HCO3 ABG Base Excess ABG Hemoglobin Oxyhemoglobin Sodium 149 H Potassium Chloride 107.9 H Carbon Dioxide 20 L BUN 117 H Creatinine 3.2 H Glucose 119 H POC Glucose 121 H Lactic Acid Calcium Ionized Calcium Phosphorus Magnesium Direct Bilirubin AST ALT Alkaline Phosphatase Lactate Dehydrogenase Troponin T C-Reactive Protein Total Protein Albumin Prealbumin Triglycerides Cholesterol LDL Cholesterol Direct HDL Cholesterol 25-OH Vitamin D Total PTH Intact Urine pH Urine WBC (Auto) Urine Creatinine Urine Total Protein Fluid Total Protein Vancomycin Trough Rheumatoid Factor Complement C4 Miscellaneous Test Crossmatch 10/18/16 10/18/16 10/18/16 05:23 10:46 17:30 WBC RBC Hgb Hct MCV MCH MCHC RDW Plt Count Lymph % (Auto) [place] % (Auto) Lymph # [place] # Baso # Seg Neutrophils % Seg Neuts % (Manual) Lymphocytes % (Manual) Monocytes % (Manual) Eosinophils % (Manual) Basophils % (Manual) Nucleated RBC % Seg Neutrophils # Seg Neutrophils # Man Lymphocytes # (Manual) Monocytes # (Manual) Eosinophils # (Manual) Basophils # (Manual) PT INR Fibrinogen dRVVT Confirm Interp Factor V Activity POC ABG pH POC ABG pCO2 POC ABG pO2 ABG pO2 ABG HCO3 ABG Base Excess ABG Hemoglobin Oxyhemoglobin Sodium Potassium Chloride Carbon Dioxide BUN Creatinine Glucose POC Glucose 119 H 155 H 124 H Lactic Acid Calcium Ionized Calcium Phosphorus Magnesium Direct Bilirubin AST ALT Alkaline Phosphatase Lactate Dehydrogenase Troponin T C-Reactive Protein Total Protein Albumin Prealbumin Triglycerides Cholesterol LDL Cholesterol Direct HDL Cholesterol 25-OH Vitamin D Total PTH Intact Urine pH Urine WBC (Auto) Urine Creatinine Urine Total Protein Fluid Total Protein Vancomycin Trough Rheumatoid Factor Complement C4 Miscellaneous Test Crossmatch 10/19/16 10/19/16 10/19/16 04:00 04:00 05:25 WBC 17.4 H RBC 2.54 L Hgb 7.7 L Hct 23.6 L MCV MCH MCHC RDW 17.3 H Plt Count Lymph % (Auto) [place] % (Auto) Lymph # [place] # Baso # Seg Neutrophils % Seg Neuts % (Manual) Lymphocytes % (Manual) Monocytes % (Manual) Eosinophils % (Manual) Basophils % (Manual) Nucleated RBC % Seg Neutrophils # Seg Neutrophils # Man Lymphocytes # (Manual) Monocytes # (Manual) Eosinophils # (Manual) Basophils # (Manual) PT INR Fibrinogen dRVVT Confirm Interp Factor V Activity POC ABG pH POC ABG pCO2 POC ABG pO2 ABG pO2 ABG HCO3 ABG Base Excess ABG Hemoglobin Oxyhemoglobin Sodium Potassium Chloride Carbon Dioxide BUN 72 H Creatinine 2.1 H Glucose 116 H POC Glucose 119 H Lactic Acid Calcium Ionized Calcium Phosphorus Magnesium Direct Bilirubin AST ALT Alkaline Phosphatase Lactate Dehydrogenase Troponin T C-Reactive Protein Total Protein Albumin Prealbumin Triglycerides Cholesterol LDL Cholesterol Direct HDL Cholesterol 25-OH Vitamin D Total PTH Intact Urine pH Urine WBC (Auto) Urine Creatinine Urine Total Protein Fluid Total Protein Vancomycin Trough Rheumatoid Factor Complement C4 Miscellaneous Test Crossmatch 10/19/16 10/19/16 10/20/16 11:46 23:59 06:00 WBC RBC Hgb Hct MCV MCH MCHC RDW Plt Count Lymph % (Auto) [place] % (Auto) Lymph # [place] # Baso # Seg Neutrophils % Seg Neuts % (Manual) Lymphocytes % (Manual) Monocytes % (Manual) Eosinophils % (Manual) Basophils % (Manual) Nucleated RBC % Seg Neutrophils # Seg Neutrophils # Man Lymphocytes # (Manual) Monocytes # (Manual) Eosinophils # (Manual) Basophils # (Manual) PT INR Fibrinogen dRVVT Confirm Interp Factor V Activity POC ABG pH POC ABG pCO2 POC ABG pO2 ABG pO2 ABG HCO3 ABG Base Excess ABG Hemoglobin Oxyhemoglobin Sodium Potassium Chloride Carbon Dioxide 17 L BUN 94 H Creatinine 2.7 H Glucose POC Glucose 116 H 117 H Lactic Acid Calcium Ionized Calcium Phosphorus Magnesium Direct Bilirubin AST ALT Alkaline Phosphatase Lactate Dehydrogenase Troponin T C-Reactive Protein Total Protein Albumin Prealbumin Triglycerides Cholesterol LDL Cholesterol Direct HDL Cholesterol 25-OH Vitamin D Total PTH Intact Urine pH Urine WBC (Auto) Urine Creatinine Urine Total Protein Fluid Total Protein Vancomycin Trough Rheumatoid Factor Complement C4 Miscellaneous Test Crossmatch 10/20/16 10/20/16 10/20/16 06:00 11:49 16:00 WBC 19.7 H RBC 2.51 L Hgb 7.7 L Hct 23.5 L MCV MCH MCHC RDW 17.5 H Plt Count Lymph % (Auto) [place] % (Auto) Lymph # [place] # Baso # Seg Neutrophils % Seg Neuts % (Manual) Lymphocytes % (Manual) Monocytes % (Manual) Eosinophils % (Manual) Basophils % (Manual) Nucleated RBC % Seg Neutrophils # Seg Neutrophils # Man Lymphocytes # (Manual) Monocytes # (Manual) Eosinophils # (Manual) Basophils # (Manual) PT INR Fibrinogen dRVVT Confirm Interp Factor V Activity POC ABG pH POC ABG pCO2 POC ABG pO2 ABG pO2 ABG HCO3 ABG Base Excess ABG Hemoglobin Oxyhemoglobin Sodium Potassium Chloride Carbon Dioxide BUN Creatinine Glucose POC Glucose 117 H Lactic Acid Calcium Ionized Calcium Phosphorus Magnesium Direct Bilirubin AST ALT Alkaline Phosphatase Lactate Dehydrogenase Troponin T C-Reactive Protein Total Protein Albumin Prealbumin Triglycerides Cholesterol LDL Cholesterol Direct HDL Cholesterol 25-OH Vitamin D Total PTH Intact Urine pH Urine WBC (Auto) Urine Creatinine Urine Total Protein Fluid Total Protein Vancomycin Trough Rheumatoid Factor Complement C4 Miscellaneous Test Flexitest 1 H Crossmatch 10/20/16 10/20/16 10/21/16 18:36 23:39 04:00 WBC RBC Hgb Hct MCV MCH MCHC RDW Plt Count Lymph % (Auto) [place] % (Auto) Lymph # [place] # Baso # Seg Neutrophils % Seg Neuts % (Manual) Lymphocytes % (Manual) Monocytes % (Manual) Eosinophils % (Manual) Basophils % (Manual) Nucleated RBC % Seg Neutrophils # Seg Neutrophils # Man Lymphocytes # (Manual) Monocytes # (Manual) Eosinophils # (Manual) Basophils # (Manual) PT INR Fibrinogen dRVVT Confirm Interp Factor V Activity POC ABG pH POC ABG pCO2 POC ABG pO2 ABG pO2 ABG HCO3 ABG Base Excess ABG Hemoglobin Oxyhemoglobin Sodium Potassium 5.4 H D Chloride Carbon Dioxide 15 L BUN 110 H Creatinine 3.0 H Glucose POC Glucose 127 H 114 H Lactic Acid Calcium Ionized Calcium Phosphorus Magnesium Direct Bilirubin AST ALT Alkaline Phosphatase Lactate Dehydrogenase Troponin T C-Reactive Protein Total Protein Albumin Prealbumin Triglycerides Cholesterol LDL Cholesterol Direct HDL Cholesterol 25-OH Vitamin D Total PTH Intact Urine pH Urine WBC (Auto) Urine Creatinine Urine Total Protein Fluid Total Protein Vancomycin Trough Rheumatoid Factor Complement C4 Miscellaneous Test Crossmatch 10/21/16 10/21/16 10/22/16 05:54 23:46 05:18 WBC RBC Hgb Hct MCV MCH MCHC RDW Plt Count Lymph % (Auto) [place] % (Auto) Lymph # [place] # Baso # Seg Neutrophils % Seg Neuts % (Manual) Lymphocytes % (Manual) Monocytes % (Manual) Eosinophils % (Manual) Basophils % (Manual) Nucleated RBC % Seg Neutrophils # Seg Neutrophils # Man Lymphocytes # (Manual) Monocytes # (Manual) Eosinophils # (Manual) Basophils # (Manual) PT INR Fibrinogen dRVVT Confirm Interp Factor V Activity POC ABG pH POC ABG pCO2 POC ABG pO2 ABG pO2 ABG HCO3 ABG Base Excess ABG Hemoglobin Oxyhemoglobin Sodium Potassium Chloride Carbon Dioxide BUN Creatinine Glucose POC Glucose 119 H 108 H 109 H Lactic Acid Calcium Ionized Calcium Phosphorus Magnesium Direct Bilirubin AST ALT Alkaline Phosphatase Lactate Dehydrogenase Troponin T C-Reactive Protein Total Protein Albumin Prealbumin Triglycerides Cholesterol LDL Cholesterol Direct HDL Cholesterol 25-OH Vitamin D Total PTH Intact Urine pH Urine WBC (Auto) Urine Creatinine Urine Total Protein Fluid Total Protein Vancomycin Trough Rheumatoid Factor Complement C4 Miscellaneous Test Crossmatch 10/22/16 10/22/16 10/22/16 06:40 06:40 06:40 WBC 14.0 H RBC 2.03 L Hgb 7.0 L Hct 20.5 L MCV 98 H MCH 34 H MCHC 35 H RDW 17.8 H Plt Count Lymph % (Auto) [place] % (Auto) 9.9 H Lymph # [place] # 1.4 H Baso # 0.2 H Seg Neutrophils % 72.0 H Seg Neuts % (Manual) Lymphocytes % (Manual) Monocytes % (Manual) Eosinophils % (Manual) Basophils % (Manual) Nucleated RBC % Seg Neutrophils # 10.0 H Seg Neutrophils # Man Lymphocytes # (Manual) Monocytes # (Manual) Eosinophils # (Manual) Basophils # (Manual) PT INR Fibrinogen dRVVT Confirm Interp Factor V Activity POC ABG pH POC ABG pCO2 POC ABG pO2 ABG pO2 ABG HCO3 ABG Base Excess ABG Hemoglobin Oxyhemoglobin Sodium 130 L D Potassium Chloride 92.4 L Carbon Dioxide 20 L BUN 50 H Creatinine 1.6 H Glucose 589 H* POC Glucose Lactic Acid Calcium 7.8 L D Ionized Calcium Phosphorus Magnesium 1.60 L Direct Bilirubin AST ALT Alkaline Phosphatase Lactate Dehydrogenase Troponin T C-Reactive Protein Total Protein Albumin Prealbumin Triglycerides Cholesterol LDL Cholesterol Direct HDL Cholesterol 25-OH Vitamin D Total PTH Intact Urine pH Urine WBC (Auto) Urine Creatinine Urine Total Protein Fluid Total Protein Vancomycin Trough Rheumatoid Factor Complement C4 Miscellaneous Test Crossmatch 10/22/16 10/22/16 10/22/16 11:39 16:44 23:36 WBC RBC Hgb Hct MCV MCH MCHC RDW Plt Count Lymph % (Auto) [place] % (Auto) Lymph # [place] # Baso # Seg Neutrophils % Seg Neuts % (Manual) Lymphocytes % (Manual) Monocytes % (Manual) Eosinophils % (Manual) Basophils % (Manual) Nucleated RBC % Seg Neutrophils # Seg Neutrophils # Man Lymphocytes # (Manual) Monocytes # (Manual) Eosinophils # (Manual) Basophils # (Manual) PT INR Fibrinogen dRVVT Confirm Interp Factor V Activity POC ABG pH POC ABG pCO2 POC ABG pO2 ABG pO2 ABG HCO3 ABG Base Excess ABG Hemoglobin Oxyhemoglobin Sodium Potassium Chloride Carbon Dioxide BUN Creatinine Glucose POC Glucose 142 H 163 H 123 H Lactic Acid Calcium Ionized Calcium Phosphorus Magnesium Direct Bilirubin AST ALT Alkaline Phosphatase Lactate Dehydrogenase Troponin T C-Reactive Protein Total Protein Albumin Prealbumin Triglycerides Cholesterol LDL Cholesterol Direct HDL Cholesterol 25-OH Vitamin D Total PTH Intact Urine pH Urine WBC (Auto) Urine Creatinine Urine Total Protein Fluid Total Protein Vancomycin Trough Rheumatoid Factor Complement C4 Miscellaneous Test Crossmatch 10/23/16 10/23/16 10/23/16 04:58 06:00 12:12 WBC RBC Hgb Hct MCV MCH MCHC RDW Plt Count Lymph % (Auto) [place] % (Auto) Lymph # [place] # Baso # Seg Neutrophils % Seg Neuts % (Manual) Lymphocytes % (Manual) Monocytes % (Manual) Eosinophils % (Manual) Basophils % (Manual) Nucleated RBC % Seg Neutrophils # Seg Neutrophils # Man Lymphocytes # (Manual) Monocytes # (Manual) Eosinophils # (Manual) Basophils # (Manual) PT INR Fibrinogen dRVVT Confirm Interp Factor V Activity POC ABG pH POC ABG pCO2 POC ABG pO2 ABG pO2 ABG HCO3 ABG Base Excess ABG Hemoglobin Oxyhemoglobin Sodium 133 L Potassium 3.5 L Chloride 96.1 L Carbon Dioxide 18 L BUN 76 H Creatinine 2.1 H Glucose POC Glucose 133 H 138 H Lactic Acid Calcium 8.3 L Ionized Calcium Phosphorus Magnesium Direct Bilirubin AST ALT Alkaline Phosphatase Lactate Dehydrogenase Troponin T C-Reactive Protein Total Protein Albumin Prealbumin Triglycerides Cholesterol LDL Cholesterol Direct HDL Cholesterol 25-OH Vitamin D Total PTH Intact Urine pH Urine WBC (Auto) Urine Creatinine Urine Total Protein Fluid Total Protein Vancomycin Trough Rheumatoid Factor Complement C4 Miscellaneous Test Crossmatch 10/23/16 10/23/16 10/24/16 16:53 23:37 04:00 WBC RBC Hgb Hct MCV MCH MCHC RDW Plt Count Lymph % (Auto) [place] % (Auto) Lymph # [place] # Baso # Seg Neutrophils % Seg Neuts % (Manual) Lymphocytes % (Manual) Monocytes % (Manual) Eosinophils % (Manual) Basophils % (Manual) Nucleated RBC % Seg Neutrophils # Seg Neutrophils # Man Lymphocytes # (Manual) Monocytes # (Manual) Eosinophils # (Manual) Basophils # (Manual) PT INR Fibrinogen dRVVT Confirm Interp Factor V Activity POC ABG pH POC ABG pCO2 POC ABG pO2 ABG pO2 ABG HCO3 ABG Base Excess ABG Hemoglobin Oxyhemoglobin Sodium 131 L Potassium Chloride 94.5 L Carbon Dioxide 19 L BUN 97 H Creatinine 2.6 H Glucose 110 H POC Glucose 125 H 123 H Lactic Acid Calcium 8.3 L Ionized Calcium Phosphorus Magnesium Direct Bilirubin AST ALT Alkaline Phosphatase Lactate Dehydrogenase Troponin T C-Reactive Protein Total Protein Albumin Prealbumin Triglycerides Cholesterol LDL Cholesterol Direct HDL Cholesterol 25-OH Vitamin D Total PTH Intact Urine pH Urine WBC (Auto) Urine Creatinine Urine Total Protein Fluid Total Protein Vancomycin Trough Rheumatoid Factor Complement C4 Miscellaneous Test Crossmatch 10/24/16 10/24/16 10/24/16 07:49 11:39 17:52 WBC RBC Hgb 6.0 L Hct 19.7 L* MCV MCH MCHC RDW Plt Count Lymph % (Auto) [place] % (Auto) Lymph # [place] # Baso # Seg Neutrophils % Seg Neuts % (Manual) Lymphocytes % (Manual) Monocytes % (Manual) Eosinophils % (Manual) Basophils % (Manual) Nucleated RBC % Seg Neutrophils # Seg Neutrophils # Man Lymphocytes # (Manual) Monocytes # (Manual) Eosinophils # (Manual) Basophils # (Manual) PT INR Fibrinogen dRVVT Confirm Interp Factor V Activity POC ABG pH POC ABG pCO2 POC ABG pO2 ABG pO2 ABG HCO3 ABG Base Excess ABG Hemoglobin Oxyhemoglobin Sodium Potassium Chloride Carbon Dioxide BUN Creatinine Glucose POC Glucose 106 H 158 H Lactic Acid Calcium Ionized Calcium Phosphorus Magnesium Direct Bilirubin AST ALT Alkaline Phosphatase Lactate Dehydrogenase Troponin T C-Reactive Protein Total Protein Albumin Prealbumin Triglycerides Cholesterol LDL Cholesterol Direct HDL Cholesterol 25-OH Vitamin D Total PTH Intact Urine pH Urine WBC (Auto) Urine Creatinine Urine Total Protein Fluid Total Protein Vancomycin Trough Rheumatoid Factor Complement C4 Miscellaneous Test Crossmatch 10/24/16 10/24/16 10/24/16 20:00 22:27 Unknown WBC RBC Hgb 9.4 L D Hct 27.5 L D MCV MCH MCHC RDW Plt Count Lymph % (Auto) [place] % (Auto) Lymph # [place] # Baso # Seg Neutrophils % Seg Neuts % (Manual) Lymphocytes % (Manual) Monocytes % (Manual) Eosinophils % (Manual) Basophils % (Manual) Nucleated RBC % Seg Neutrophils # Seg Neutrophils # Man Lymphocytes # (Manual) Monocytes # (Manual) Eosinophils # (Manual) Basophils # (Manual) PT INR Fibrinogen dRVVT Confirm Interp Factor V Activity POC ABG pH POC ABG pCO2 POC ABG pO2 ABG pO2 ABG HCO3 ABG Base Excess ABG Hemoglobin Oxyhemoglobin Sodium Potassium Chloride Carbon Dioxide BUN Creatinine Glucose POC Glucose 125 H Lactic Acid Calcium Ionized Calcium Phosphorus Magnesium Direct Bilirubin AST ALT Alkaline Phosphatase Lactate Dehydrogenase Troponin T C-Reactive Protein Total Protein Albumin Prealbumin Triglycerides Cholesterol LDL Cholesterol Direct HDL Cholesterol 25-OH Vitamin D Total PTH Intact Urine pH Urine WBC (Auto) Urine Creatinine Urine Total Protein Fluid Total Protein Vancomycin Trough Rheumatoid Factor Complement C4 Miscellaneous Test Crossmatch See Detail 10/25/16 10/25/16 10/25/16 04:00 04:00 04:00 WBC 14.2 H RBC 2.98 L Hgb 9.0 L Hct 26.2 L MCV MCH MCHC RDW 16.6 H Plt Count Lymph % (Auto) [place] % (Auto) 10.7 H Lymph # [place] # 1.5 H Baso # Seg Neutrophils % 73.6 H Seg Neuts % (Manual) Lymphocytes % (Manual) Monocytes % (Manual) Eosinophils % (Manual) Basophils % (Manual) Nucleated RBC % Seg Neutrophils # 10.5 H Seg Neutrophils # Man Lymphocytes # (Manual) Monocytes # (Manual) Eosinophils # (Manual) Basophils # (Manual) PT INR Fibrinogen dRVVT Confirm Interp Factor V Activity POC ABG pH POC ABG pCO2 POC ABG pO2 ABG pO2 ABG HCO3 ABG Base Excess ABG Hemoglobin Oxyhemoglobin Sodium 132 L Potassium Chloride 94.7 L Carbon Dioxide BUN 51 H Creatinine 1.6 H Glucose 130 H POC Glucose Lactic Acid Calcium 8.3 L Ionized Calcium Phosphorus 1.60 L D Magnesium Direct Bilirubin AST ALT Alkaline Phosphatase Lactate Dehydrogenase Troponin T C-Reactive Protein Total Protein Albumin Prealbumin Triglycerides Cholesterol LDL Cholesterol Direct HDL Cholesterol 25-OH Vitamin D Total PTH Intact Urine pH Urine WBC (Auto) Urine Creatinine Urine Total Protein Fluid Total Protein Vancomycin Trough Rheumatoid Factor Complement C4 Miscellaneous Test Crossmatch 10/25/16 10/25/16 10/25/16 04:32 11:48 17:22 WBC RBC Hgb Hct MCV MCH MCHC RDW Plt Count Lymph % (Auto) [place] % (Auto) Lymph # [place] # Baso # Seg Neutrophils % Seg Neuts % (Manual) Lymphocytes % (Manual) Monocytes % (Manual) Eosinophils % (Manual) Basophils % (Manual) Nucleated RBC % Seg Neutrophils # Seg Neutrophils # Man Lymphocytes # (Manual) Monocytes # (Manual) Eosinophils # (Manual) Basophils # (Manual) PT INR Fibrinogen dRVVT Confirm Interp Factor V Activity POC ABG pH POC ABG pCO2 POC ABG pO2 ABG pO2 ABG HCO3 ABG Base Excess ABG Hemoglobin Oxyhemoglobin Sodium Potassium Chloride Carbon Dioxide BUN Creatinine Glucose POC Glucose 124 H 171 H 120 H Lactic Acid Calcium Ionized Calcium Phosphorus Magnesium Direct Bilirubin AST ALT Alkaline Phosphatase Lactate Dehydrogenase Troponin T C-Reactive Protein Total Protein Albumin Prealbumin Triglycerides Cholesterol LDL Cholesterol Direct HDL Cholesterol 25-OH Vitamin D Total PTH Intact Urine pH Urine WBC (Auto) Urine Creatinine Urine Total Protein Fluid Total Protein Vancomycin Trough Rheumatoid Factor Complement C4 Miscellaneous Test Crossmatch 10/26/16 10/26/16 10/26/16 04:54 07:06 07:06 WBC 16.9 H RBC 3.06 L Hgb 9.1 L Hct 26.9 L MCV MCH MCHC RDW 16.9 H Plt Count Lymph % (Auto) [place] % (Auto) Lymph # [place] # Baso # Seg Neutrophils % Seg Neuts % (Manual) 71.0 H Lymphocytes % (Manual) 5.0 L Monocytes % (Manual) 12.0 H Eosinophils % (Manual) Basophils % (Manual) Nucleated RBC % Seg Neutrophils # Seg Neutrophils # Man 12.0 H Lymphocytes # (Manual) 0.8 L Monocytes # (Manual) 2.0 H Eosinophils # (Manual) Basophils # (Manual) PT INR Fibrinogen dRVVT Confirm Interp Factor V Activity POC ABG pH POC ABG pCO2 POC ABG pO2 ABG pO2 ABG HCO3 ABG Base Excess ABG Hemoglobin Oxyhemoglobin Sodium 135 L Potassium Chloride 97.1 L Carbon Dioxide BUN 73 H Creatinine 2.2 H Glucose 117 H POC Glucose 123 H Lactic Acid Calcium Ionized Calcium Phosphorus 1.70 L Magnesium Direct Bilirubin AST ALT Alkaline Phosphatase Lactate Dehydrogenase Troponin T C-Reactive Protein Total Protein Albumin Prealbumin Triglycerides Cholesterol LDL Cholesterol Direct HDL Cholesterol 25-OH Vitamin D Total PTH Intact Urine pH Urine WBC (Auto) Urine Creatinine Urine Total Protein Fluid Total Protein Vancomycin Trough Rheumatoid Factor Complement C4 Miscellaneous Test Crossmatch 10/26/16 10/26/16 10/26/16 12:12 17:29 23:42 WBC RBC Hgb Hct MCV MCH MCHC RDW Plt Count Lymph % (Auto) [place] % (Auto) Lymph # [place] # Baso # Seg Neutrophils % Seg Neuts % (Manual) Lymphocytes % (Manual) Monocytes % (Manual) Eosinophils % (Manual) Basophils % (Manual) Nucleated RBC % Seg Neutrophils # Seg Neutrophils # Man Lymphocytes # (Manual) Monocytes # (Manual) Eosinophils # (Manual) Basophils # (Manual) PT INR Fibrinogen dRVVT Confirm Interp Factor V Activity POC ABG pH POC ABG pCO2 POC ABG pO2 ABG pO2 ABG HCO3 ABG Base Excess ABG Hemoglobin Oxyhemoglobin Sodium Potassium Chloride Carbon Dioxide BUN Creatinine Glucose POC Glucose 126 H 161 H 118 H Lactic Acid Calcium Ionized Calcium Phosphorus Magnesium Direct Bilirubin AST ALT Alkaline Phosphatase Lactate Dehydrogenase Troponin T C-Reactive Protein Total Protein Albumin Prealbumin Triglycerides Cholesterol LDL Cholesterol Direct HDL Cholesterol 25-OH Vitamin D Total PTH Intact Urine pH Urine WBC (Auto) Urine Creatinine Urine Total Protein Fluid Total Protein Vancomycin Trough Rheumatoid Factor Complement C4 Miscellaneous Test Crossmatch 10/27/16 10/27/16 10/27/16 05:03 06:30 06:30 WBC 13.9 H RBC 3.09 L Hgb 9.2 L Hct 27.5 L MCV MCH MCHC RDW 17.0 H Plt Count Lymph % (Auto) [place] % (Auto) Lymph # [place] # Baso # Seg Neutrophils % Seg Neuts % (Manual) 78.0 H Lymphocytes % (Manual) Monocytes % (Manual) Eosinophils % (Manual) Basophils % (Manual) Nucleated RBC % 2.0 H Seg Neutrophils # Seg Neutrophils # Man 10.8 H Lymphocytes # (Manual) Monocytes # (Manual) 1.0 H Eosinophils # (Manual) Basophils # (Manual) PT INR Fibrinogen dRVVT Confirm Interp Factor V Activity POC ABG pH POC ABG pCO2 POC ABG pO2 ABG pO2 ABG HCO3 ABG Base Excess ABG Hemoglobin Oxyhemoglobin Sodium Potassium Chloride Carbon Dioxide BUN 40 H Creatinine 1.5 H Glucose 135 H POC Glucose 107 H Lactic Acid Calcium 8.3 L Ionized Calcium Phosphorus 1.30 L D Magnesium Direct Bilirubin AST ALT Alkaline Phosphatase Lactate Dehydrogenase Troponin T C-Reactive Protein Total Protein Albumin Prealbumin Triglycerides Cholesterol LDL Cholesterol Direct HDL Cholesterol 25-OH Vitamin D Total PTH Intact Urine pH Urine WBC (Auto) Urine Creatinine Urine Total Protein Fluid Total Protein Vancomycin Trough Rheumatoid Factor Complement C4 Miscellaneous Test Crossmatch 09/07/17 09/07/17 09/07/17 13:27 18:07 23:40 WBC RBC Hgb Hct MCV MCH MCHC RDW Plt Count Lymph % (Auto) [place] % (Auto) Lymph # [place] # Baso # Seg Neutrophils % Seg Neuts % (Manual) Lymphocytes % (Manual) Monocytes % (Manual) Eosinophils % (Manual) Basophils % (Manual) Nucleated RBC % Seg Neutrophils # Seg Neutrophils # Man Lymphocytes # (Manual) Monocytes # (Manual) Eosinophils # (Manual) Basophils # (Manual) PT INR Fibrinogen dRVVT Confirm Interp Factor V Activity POC ABG pH POC ABG pCO2 POC ABG pO2 ABG pO2 ABG HCO3 ABG Base Excess ABG Hemoglobin Oxyhemoglobin Sodium Potassium Chloride Carbon Dioxide BUN Creatinine Glucose POC Glucose 117 H 121 H 118 H Lactic Acid Calcium Ionized Calcium Phosphorus Magnesium Direct Bilirubin AST ALT Alkaline Phosphatase Lactate Dehydrogenase Troponin T C-Reactive Protein Total Protein Albumin Prealbumin Triglycerides Cholesterol LDL Cholesterol Direct HDL Cholesterol 25-OH Vitamin D Total PTH Intact Urine pH Urine WBC (Auto) Urine Creatinine Urine Total Protein Fluid Total Protein Vancomycin Trough Rheumatoid Factor Complement C4 Miscellaneous Test Crossmatch 10/28/16 10/28/16 10/28/16 05:48 06:45 06:45 WBC 14.7 H RBC 3.05 L Hgb 9.0 L Hct 26.9 L MCV MCH MCHC RDW 16.8 H Plt Count Lymph % (Auto) 8.2 L [place] % (Auto) 8.4 H Lymph # [place] # 1.2 H Baso # Seg Neutrophils % 81.9 H Seg Neuts % (Manual) Lymphocytes % (Manual) Monocytes % (Manual) Eosinophils % (Manual) Basophils % (Manual) Nucleated RBC % Seg Neutrophils # 12.1 H Seg Neutrophils # Man Lymphocytes # (Manual) Monocytes # (Manual) Eosinophils # (Manual) Basophils # (Manual) PT INR Fibrinogen dRVVT Confirm Interp Factor V Activity POC ABG pH POC ABG pCO2 POC ABG pO2 ABG pO2 ABG HCO3 ABG Base Excess ABG Hemoglobin Oxyhemoglobin Sodium Potassium Chloride Carbon Dioxide BUN 60 H Creatinine 1.9 H Glucose 120 H POC Glucose 114 H Lactic Acid Calcium Ionized Calcium Phosphorus Magnesium Direct Bilirubin AST ALT Alkaline Phosphatase Lactate Dehydrogenase Troponin T C-Reactive Protein Total Protein Albumin Prealbumin Triglycerides Cholesterol LDL Cholesterol Direct HDL Cholesterol 25-OH Vitamin D Total PTH Intact Urine pH Urine WBC (Auto) Urine Creatinine Urine Total Protein Fluid Total Protein Vancomycin Trough Rheumatoid Factor Complement C4 Miscellaneous Test Crossmatch 10/28/16 10/28/16 10/29/16 17:08 23:50 05:10 WBC RBC Hgb Hct MCV MCH MCHC RDW Plt Count Lymph % (Auto) [place] % (Auto) Lymph # [place] # Baso # Seg Neutrophils % Seg Neuts % (Manual) Lymphocytes % (Manual) Monocytes % (Manual) Eosinophils % (Manual) Basophils % (Manual) Nucleated RBC % Seg Neutrophils # Seg Neutrophils # Man Lymphocytes # (Manual) Monocytes # (Manual) Eosinophils # (Manual) Basophils # (Manual) PT INR Fibrinogen dRVVT Confirm Interp Factor V Activity POC ABG pH POC ABG pCO2 POC ABG pO2 ABG pO2 ABG HCO3 ABG Base Excess ABG Hemoglobin Oxyhemoglobin Sodium Potassium Chloride Carbon Dioxide BUN Creatinine Glucose POC Glucose 109 H 110 H 124 H Lactic Acid Calcium Ionized Calcium Phosphorus Magnesium Direct Bilirubin AST ALT Alkaline Phosphatase Lactate Dehydrogenase Troponin T C-Reactive Protein Total Protein Albumin Prealbumin Triglycerides Cholesterol LDL Cholesterol Direct HDL Cholesterol 25-OH Vitamin D Total PTH Intact Urine pH Urine WBC (Auto) Urine Creatinine Urine Total Protein Fluid Total Protein Vancomycin Trough Rheumatoid Factor Complement C4 Miscellaneous Test Crossmatch 10/29/16 10/29/16 10/29/16 07:45 07:45 12:19 WBC 14.7 H RBC 3.15 L Hgb 9.3 L Hct 28.9 L MCV MCH MCHC RDW 17.0 H Plt Count Lymph % (Auto) 11.9 L [place] % (Auto) 8.6 H Lymph # [place] # 1.3 H Baso # Seg Neutrophils % 78.1 H Seg Neuts % (Manual) Lymphocytes % (Manual) Monocytes % (Manual) Eosinophils % (Manual) Basophils % (Manual) Nucleated RBC % Seg Neutrophils # 11.4 H Seg Neutrophils # Man Lymphocytes # (Manual) Monocytes # (Manual) Eosinophils # (Manual) Basophils # (Manual) PT INR Fibrinogen dRVVT Confirm Interp Factor V Activity POC ABG pH POC ABG pCO2 POC ABG pO2 ABG pO2 ABG HCO3 ABG Base Excess ABG Hemoglobin Oxyhemoglobin Sodium Potassium 5.1 H Chloride Carbon Dioxide 19 L BUN 78 H Creatinine 2.2 H Glucose 116 H POC Glucose 118 H Lactic Acid Calcium Ionized Calcium Phosphorus Magnesium Direct Bilirubin AST ALT Alkaline Phosphatase Lactate Dehydrogenase Troponin T C-Reactive Protein Total Protein Albumin Prealbumin Triglycerides Cholesterol LDL Cholesterol Direct HDL Cholesterol 25-OH Vitamin D Total PTH Intact Urine pH Urine WBC (Auto) Urine Creatinine Urine Total Protein Fluid Total Protein Vancomycin Trough Rheumatoid Factor Complement C4 Miscellaneous Test Crossmatch 10/29/16 10/30/16 10/30/16 17:49 01:52 03:28 WBC RBC Hgb Hct MCV MCH MCHC RDW Plt Count Lymph % (Auto) [place] % (Auto) Lymph # [place] # Baso # Seg Neutrophils % Seg Neuts % (Manual) Lymphocytes % (Manual) Monocytes % (Manual) Eosinophils % (Manual) Basophils % (Manual) Nucleated RBC % Seg Neutrophils # Seg Neutrophils # Man Lymphocytes # (Manual) Monocytes # (Manual) Eosinophils # (Manual) Basophils # (Manual) PT INR Fibrinogen dRVVT Confirm Interp Factor V Activity POC ABG pH POC ABG pCO2 POC ABG pO2 ABG pO2 ABG HCO3 ABG Base Excess ABG Hemoglobin Oxyhemoglobin Sodium Potassium 5.4 H Chloride 97.5 L Carbon Dioxide 19 L BUN 90 H Creatinine 2.5 H Glucose POC Glucose 120 H 129 H Lactic Acid Calcium Ionized Calcium Phosphorus 5.20 H Magnesium Direct Bilirubin AST ALT Alkaline Phosphatase Lactate Dehydrogenase Troponin T C-Reactive Protein Total Protein Albumin Prealbumin Triglycerides Cholesterol LDL Cholesterol Direct HDL Cholesterol 25-OH Vitamin D Total PTH Intact Urine pH Urine WBC (Auto) Urine Creatinine Urine Total Protein Fluid Total Protein Vancomycin Trough Rheumatoid Factor Complement C4 Miscellaneous Test Crossmatch 10/30/16 10/30/16 10/30/16 03:28 08:19 08:19 WBC 11.6 H 15.9 H RBC 2.75 L 2.82 L Hgb 7.9 L 8.3 L Hct 24.2 L 25.2 L MCV MCH MCHC RDW 16.7 H 17.2 H Plt Count Lymph % (Auto) [place] % (Auto) 9.8 H Lymph # [place] # 1.1 H Baso # Seg Neutrophils % 74.2 H Seg Neuts % (Manual) Lymphocytes % (Manual) Monocytes % (Manual) Eosinophils % (Manual) Basophils % (Manual) Nucleated RBC % Seg Neutrophils # 8.6 H Seg Neutrophils # Man Lymphocytes # (Manual) Monocytes # (Manual) Eosinophils # (Manual) Basophils # (Manual) PT INR Fibrinogen dRVVT Confirm Interp Factor V Activity POC ABG pH POC ABG pCO2 POC ABG pO2 ABG pO2 ABG HCO3 ABG Base Excess ABG Hemoglobin Oxyhemoglobin Sodium Potassium 5.3 H Chloride 97.4 L Carbon Dioxide 19 L BUN 93 H Creatinine 2.6 H Glucose POC Glucose Lactic Acid Calcium Ionized Calcium Phosphorus Magnesium Direct Bilirubin AST ALT Alkaline Phosphatase Lactate Dehydrogenase Troponin T C-Reactive Protein Total Protein Albumin Prealbumin Triglycerides Cholesterol LDL Cholesterol Direct HDL Cholesterol 25-OH Vitamin D Total PTH Intact Urine pH Urine WBC (Auto) Urine Creatinine Urine Total Protein Fluid Total Protein Vancomycin Trough Rheumatoid Factor Complement C4 Miscellaneous Test Crossmatch 10/30/16 10/30/16 10/31/16 17:11 23:56 00:40 WBC RBC Hgb Hct MCV MCH MCHC RDW Plt Count Lymph % (Auto) [place] % (Auto) Lymph # [place] # Baso # Seg Neutrophils % Seg Neuts % (Manual) Lymphocytes % (Manual) Monocytes % (Manual) Eosinophils % (Manual) Basophils % (Manual) Nucleated RBC % Seg Neutrophils # Seg Neutrophils # Man Lymphocytes # (Manual) Monocytes # (Manual) Eosinophils # (Manual) Basophils # (Manual) PT INR Fibrinogen dRVVT Confirm Interp Factor V Activity POC ABG pH POC ABG pCO2 POC ABG pO2 ABG pO2 ABG HCO3 ABG Base Excess ABG Hemoglobin Oxyhemoglobin Sodium Potassium Chloride Carbon Dioxide BUN Creatinine Glucose POC Glucose 106 H 117 H 120 H Lactic Acid Calcium Ionized Calcium Phosphorus Magnesium Direct Bilirubin AST ALT Alkaline Phosphatase Lactate Dehydrogenase Troponin T C-Reactive Protein Total Protein Albumin Prealbumin Triglycerides Cholesterol LDL Cholesterol Direct HDL Cholesterol 25-OH Vitamin D Total PTH Intact Urine pH Urine WBC (Auto) Urine Creatinine Urine Total Protein Fluid Total Protein Vancomycin Trough Rheumatoid Factor Complement C4 Miscellaneous Test Crossmatch 10/31/16 10/31/16 10/31/16 05:43 07:15 07:15 WBC 12.1 H RBC 2.63 L Hgb 7.7 L Hct 23.3 L MCV MCH MCHC RDW 16.7 H Plt Count Lymph % (Auto) 11.7 L [place] % (Auto) 7.7 H Lymph # [place] # 0.9 H Baso # Seg Neutrophils % 78.0 H Seg Neuts % (Manual) Lymphocytes % (Manual) Monocytes % (Manual) Eosinophils % (Manual) Basophils % (Manual) Nucleated RBC % Seg Neutrophils # 9.4 H Seg Neutrophils # Man Lymphocytes # (Manual) Monocytes # (Manual) Eosinophils # (Manual) Basophils # (Manual) PT INR Fibrinogen dRVVT Confirm Interp Factor V Activity POC ABG pH POC ABG pCO2 POC ABG pO2 ABG pO2 ABG HCO3 ABG Base Excess ABG Hemoglobin Oxyhemoglobin Sodium Potassium Chloride 96.4 L Carbon Dioxide 21 L BUN 99 H Creatinine 2.6 H Glucose 144 H POC Glucose 125 H Lactic Acid Calcium Ionized Calcium Phosphorus 4.80 H Magnesium Direct Bilirubin AST ALT Alkaline Phosphatase Lactate Dehydrogenase Troponin T C-Reactive Protein Total Protein Albumin Prealbumin Triglycerides Cholesterol LDL Cholesterol Direct HDL Cholesterol 25-OH Vitamin D Total PTH Intact Urine pH Urine WBC (Auto) Urine Creatinine Urine Total Protein Fluid Total Protein Vancomycin Trough Rheumatoid Factor Complement C4 Miscellaneous Test Crossmatch 10/31/16 10/31/16 11/01/16 11:46 18:34 00:20 WBC RBC Hgb Hct MCV MCH MCHC RDW Plt Count Lymph % (Auto) [place] % (Auto) Lymph # [place] # Baso # Seg Neutrophils % Seg Neuts % (Manual) Lymphocytes % (Manual) Monocytes % (Manual) Eosinophils % (Manual) Basophils % (Manual) Nucleated RBC % Seg Neutrophils # Seg Neutrophils # Man Lymphocytes # (Manual) Monocytes # (Manual) Eosinophils # (Manual) Basophils # (Manual) PT INR Fibrinogen dRVVT Confirm Interp Factor V Activity POC ABG pH POC ABG pCO2 POC ABG pO2 ABG pO2 ABG HCO3 ABG Base Excess ABG Hemoglobin Oxyhemoglobin Sodium Potassium Chloride Carbon Dioxide BUN Creatinine Glucose POC Glucose 159 H 140 H 132 H Lactic Acid Calcium Ionized Calcium Phosphorus Magnesium Direct Bilirubin AST ALT Alkaline Phosphatase Lactate Dehydrogenase Troponin T C-Reactive Protein Total Protein Albumin Prealbumin Triglycerides Cholesterol LDL Cholesterol Direct HDL Cholesterol 25-OH Vitamin D Total PTH Intact Urine pH Urine WBC (Auto) Urine Creatinine Urine Total Protein Fluid Total Protein Vancomycin Trough Rheumatoid Factor Complement C4 Miscellaneous Test Crossmatch 11/01/16 11/01/16 11/01/16 04:55 04:55 06:11 WBC 11.2 H RBC 2.68 L Hgb 7.5 L Hct 23.7 L MCV MCH MCHC RDW 16.1 H Plt Count Lymph % (Auto) [place] % (Auto) 9.8 H Lymph # [place] # 1.1 H Baso # Seg Neutrophils % 70.8 H Seg Neuts % (Manual) Lymphocytes % (Manual) Monocytes % (Manual) Eosinophils % (Manual) Basophils % (Manual) Nucleated RBC % Seg Neutrophils # 7.9 H Seg Neutrophils # Man Lymphocytes # (Manual) Monocytes # (Manual) Eosinophils # (Manual) Basophils # (Manual) PT INR Fibrinogen dRVVT Confirm Interp Factor V Activity POC ABG pH POC ABG pCO2 POC ABG pO2 ABG pO2 ABG HCO3 ABG Base Excess ABG Hemoglobin Oxyhemoglobin Sodium Potassium 3.3 L D Chloride Carbon Dioxide BUN 61 H Creatinine 1.9 H Glucose 114 H POC Glucose 115 H Lactic Acid Calcium Ionized Calcium Phosphorus 1.80 L D Magnesium Direct Bilirubin AST ALT Alkaline Phosphatase Lactate Dehydrogenase Troponin T C-Reactive Protein Total Protein Albumin Prealbumin Triglycerides Cholesterol LDL Cholesterol Direct HDL Cholesterol 25-OH Vitamin D Total PTH Intact Urine pH Urine WBC (Auto) Urine Creatinine Urine Total Protein Fluid Total Protein Vancomycin Trough Rheumatoid Factor Complement C4 Miscellaneous Test Crossmatch 11/01/16 11/01/16 11/01/16 12:29 18:23 23:58 WBC RBC Hgb Hct MCV MCH MCHC RDW Plt Count Lymph % (Auto) [place] % (Auto) Lymph # [place] # Baso # Seg Neutrophils % Seg Neuts % (Manual) Lymphocytes % (Manual) Monocytes % (Manual) Eosinophils % (Manual) Basophils % (Manual) Nucleated RBC % Seg Neutrophils # Seg Neutrophils # Man Lymphocytes # (Manual) Monocytes # (Manual) Eosinophils # (Manual) Basophils # (Manual) PT INR Fibrinogen dRVVT Confirm Interp Factor V Activity POC ABG pH POC ABG pCO2 POC ABG pO2 ABG pO2 ABG HCO3 ABG Base Excess ABG Hemoglobin Oxyhemoglobin Sodium Potassium Chloride Carbon Dioxide BUN Creatinine Glucose POC Glucose 142 H 143 H 128 H Lactic Acid Calcium Ionized Calcium Phosphorus Magnesium Direct Bilirubin AST ALT Alkaline Phosphatase Lactate Dehydrogenase Troponin T C-Reactive Protein Total Protein Albumin Prealbumin Triglycerides Cholesterol LDL Cholesterol Direct HDL Cholesterol 25-OH Vitamin D Total PTH Intact Urine pH Urine WBC (Auto) Urine Creatinine Urine Total Protein Fluid Total Protein Vancomycin Trough Rheumatoid Factor Complement C4 Miscellaneous Test Crossmatch 11/02/16 11/02/16 11/02/16 04:16 05:29 11:58 WBC RBC Hgb Hct MCV MCH MCHC RDW Plt Count Lymph % (Auto) [place] % (Auto) Lymph # [place] # Baso # Seg Neutrophils % Seg Neuts % (Manual) Lymphocytes % (Manual) Monocytes % (Manual) Eosinophils % (Manual) Basophils % (Manual) Nucleated RBC % Seg Neutrophils # Seg Neutrophils # Man Lymphocytes # (Manual) Monocytes # (Manual) Eosinophils # (Manual) Basophils # (Manual) PT INR Fibrinogen dRVVT Confirm Interp Factor V Activity POC ABG pH POC ABG pCO2 POC ABG pO2 ABG pO2 ABG HCO3 ABG Base Excess ABG Hemoglobin Oxyhemoglobin Sodium Potassium 3.1 L Chloride Carbon Dioxide BUN 73 H Creatinine 2.3 H Glucose 112 H POC Glucose 135 H 149 H Lactic Acid Calcium Ionized Calcium Phosphorus Magnesium Direct Bilirubin AST ALT Alkaline Phosphatase Lactate Dehydrogenase Troponin T C-Reactive Protein Total Protein Albumin Prealbumin Triglycerides Cholesterol LDL Cholesterol Direct HDL Cholesterol 25-OH Vitamin D Total PTH Intact Urine pH Urine WBC (Auto) Urine Creatinine Urine Total Protein Fluid Total Protein Vancomycin Trough Rheumatoid Factor Complement C4 Miscellaneous Test Crossmatch 11/02/16 11/02/16 11/03/16 17:42 22:54 06:00 WBC RBC Hgb Hct MCV MCH MCHC RDW Plt Count Lymph % (Auto) [place] % (Auto) Lymph # [place] # Baso # Seg Neutrophils % Seg Neuts % (Manual) Lymphocytes % (Manual) Monocytes % (Manual) Eosinophils % (Manual) Basophils % (Manual) Nucleated RBC % Seg Neutrophils # Seg Neutrophils # Man Lymphocytes # (Manual) Monocytes # (Manual) Eosinophils # (Manual) Basophils # (Manual) PT INR Fibrinogen dRVVT Confirm Interp Factor V Activity POC ABG pH POC ABG pCO2 POC ABG pO2 ABG pO2 ABG HCO3 ABG Base Excess ABG Hemoglobin Oxyhemoglobin Sodium Potassium Chloride 96.7 L Carbon Dioxide BUN 41 H Creatinine 1.5 H Glucose 145 H POC Glucose 182 H 115 H Lactic Acid Calcium Ionized Calcium Phosphorus 1.60 L D Magnesium 1.50 L Direct Bilirubin AST ALT Alkaline Phosphatase Lactate Dehydrogenase Troponin T C-Reactive Protein Total Protein Albumin Prealbumin Triglycerides Cholesterol LDL Cholesterol Direct HDL Cholesterol 25-OH Vitamin D Total PTH Intact Urine pH Urine WBC (Auto) Urine Creatinine Urine Total Protein Fluid Total Protein Vancomycin Trough Rheumatoid Factor Complement C4 Miscellaneous Test Crossmatch 11/03/16 11/03/16 11/03/16 11:53 17:45 23:37 WBC RBC Hgb Hct MCV MCH MCHC RDW Plt Count Lymph % (Auto) [place] % (Auto) Lymph # [place] # Baso # Seg Neutrophils % Seg Neuts % (Manual) Lymphocytes % (Manual) Monocytes % (Manual) Eosinophils % (Manual) Basophils % (Manual) Nucleated RBC % Seg Neutrophils # Seg Neutrophils # Man Lymphocytes # (Manual) Monocytes # (Manual) Eosinophils # (Manual) Basophils # (Manual) PT INR Fibrinogen dRVVT Confirm Interp Factor V Activity POC ABG pH POC ABG pCO2 POC ABG pO2 ABG pO2 ABG HCO3 ABG Base Excess ABG Hemoglobin Oxyhemoglobin Sodium Potassium Chloride Carbon Dioxide BUN Creatinine Glucose POC Glucose 131 H 134 H 113 H Lactic Acid Calcium Ionized Calcium Phosphorus Magnesium Direct Bilirubin AST ALT Alkaline Phosphatase Lactate Dehydrogenase Troponin T C-Reactive Protein Total Protein Albumin Prealbumin Triglycerides Cholesterol LDL Cholesterol Direct HDL Cholesterol 25-OH Vitamin D Total PTH Intact Urine pH Urine WBC (Auto) Urine Creatinine Urine Total Protein Fluid Total Protein Vancomycin Trough Rheumatoid Factor Complement C4 Miscellaneous Test Crossmatch 11/04/16 11/04/16 11/04/16 05:41 06:00 12:10 WBC RBC Hgb Hct MCV MCH MCHC RDW Plt Count Lymph % (Auto) [place] % (Auto) Lymph # [place] # Baso # Seg Neutrophils % Seg Neuts % (Manual) Lymphocytes % (Manual) Monocytes % (Manual) Eosinophils % (Manual) Basophils % (Manual) Nucleated RBC % Seg Neutrophils # Seg Neutrophils # Man Lymphocytes # (Manual) Monocytes # (Manual) Eosinophils # (Manual) Basophils # (Manual) PT INR Fibrinogen dRVVT Confirm Interp Factor V Activity POC ABG pH POC ABG pCO2 POC ABG pO2 ABG pO2 ABG HCO3 ABG Base Excess ABG Hemoglobin Oxyhemoglobin Sodium Potassium Chloride 96.7 L Carbon Dioxide BUN 52 H Creatinine 1.9 H Glucose 126 H POC Glucose 137 H 191 H Lactic Acid Calcium Ionized Calcium Phosphorus Magnesium Direct Bilirubin AST ALT Alkaline Phosphatase Lactate Dehydrogenase Troponin T C-Reactive Protein Total Protein Albumin Prealbumin Triglycerides Cholesterol LDL Cholesterol Direct HDL Cholesterol 25-OH Vitamin D Total PTH Intact Urine pH Urine WBC (Auto) Urine Creatinine Urine Total Protein Fluid Total Protein Vancomycin Trough Rheumatoid Factor Complement C4 Miscellaneous Test Crossmatch 11/04/16 11/05/16 11/05/16 22:57 03:10 05:10 WBC RBC Hgb Hct MCV MCH MCHC RDW Plt Count Lymph % (Auto) [place] % (Auto) Lymph # [place] # Baso # Seg Neutrophils % Seg Neuts % (Manual) Lymphocytes % (Manual) Monocytes % (Manual) Eosinophils % (Manual) Basophils % (Manual) Nucleated RBC % Seg Neutrophils # Seg Neutrophils # Man Lymphocytes # (Manual) Monocytes # (Manual) Eosinophils # (Manual) Basophils # (Manual) PT INR Fibrinogen dRVVT Confirm Interp Factor V Activity POC ABG pH POC ABG pCO2 POC ABG pO2 ABG pO2 ABG HCO3 ABG Base Excess ABG Hemoglobin Oxyhemoglobin Sodium 136 L Potassium Chloride 97.2 L Carbon Dioxide BUN 32 H Creatinine 1.3 H Glucose 123 H POC Glucose 125 H 108 H Lactic Acid Calcium 7.8 L Ionized Calcium Phosphorus Magnesium Direct Bilirubin AST ALT Alkaline Phosphatase Lactate Dehydrogenase Troponin T C-Reactive Protein Total Protein Albumin Prealbumin Triglycerides Cholesterol LDL Cholesterol Direct HDL Cholesterol 25-OH Vitamin D Total PTH Intact Urine pH Urine WBC (Auto) Urine Creatinine Urine Total Protein Fluid Total Protein Vancomycin Trough Rheumatoid Factor Complement C4 Miscellaneous Test Crossmatch 11/05/16 11/05/16 11/05/16 12:23 13:09 13:25 WBC RBC Hgb Hct MCV MCH MCHC RDW Plt Count Lymph % (Auto) [place] % (Auto) Lymph # [place] # Baso # Seg Neutrophils % Seg Neuts % (Manual) Lymphocytes % (Manual) Monocytes % (Manual) Eosinophils % (Manual) Basophils % (Manual) Nucleated RBC % Seg Neutrophils # Seg Neutrophils # Man Lymphocytes # (Manual) Monocytes # (Manual) Eosinophils # (Manual) Basophils # (Manual) PT INR Fibrinogen dRVVT Confirm Interp Factor V Activity POC ABG pH POC ABG pCO2 POC ABG pO2 ABG pO2 ABG HCO3 ABG Base Excess ABG Hemoglobin Oxyhemoglobin Sodium Potassium Chloride Carbon Dioxide BUN Creatinine Glucose POC Glucose 124 H Lactic Acid Calcium Ionized Calcium Phosphorus Magnesium Direct Bilirubin AST ALT Alkaline Phosphatase Lactate Dehydrogenase Troponin T C-Reactive Protein 11.40 H Total Protein Albumin Prealbumin Triglycerides Cholesterol LDL Cholesterol Direct HDL Cholesterol 25-OH Vitamin D Total PTH Intact Urine pH 9.0 H Urine WBC (Auto) Urine Creatinine Urine Total Protein Fluid Total Protein Vancomycin Trough Rheumatoid Factor Complement C4 Miscellaneous Test Crossmatch 11/05/16 11/05/16 11/05/16 13:25 17:54 23:42 WBC RBC Hgb Hct MCV MCH MCHC RDW Plt Count Lymph % (Auto) [place] % (Auto) Lymph # [place] # Baso # Seg Neutrophils % Seg Neuts % (Manual) Lymphocytes % (Manual) Monocytes % (Manual) Eosinophils % (Manual) Basophils % (Manual) Nucleated RBC % Seg Neutrophils # Seg Neutrophils # Man Lymphocytes # (Manual) Monocytes # (Manual) Eosinophils # (Manual) Basophils # (Manual) PT INR Fibrinogen dRVVT Confirm Interp Factor V Activity POC ABG pH POC ABG pCO2 POC ABG pO2 ABG pO2 ABG HCO3 ABG Base Excess ABG Hemoglobin Oxyhemoglobin Sodium Potassium Chloride Carbon Dioxide BUN Creatinine Glucose POC Glucose 114 H 134 H Lactic Acid Calcium Ionized Calcium Phosphorus Magnesium Direct Bilirubin AST ALT Alkaline Phosphatase Lactate Dehydrogenase Troponin T C-Reactive Protein Total Protein Albumin Prealbumin Triglycerides Cholesterol LDL Cholesterol Direct HDL Cholesterol 25-OH Vitamin D Total PTH Intact Urine pH Urine WBC (Auto) Urine Creatinine Urine Total Protein Fluid Total Protein Vancomycin Trough Rheumatoid Factor Complement C4 Miscellaneous Test Flexitest 1 H Crossmatch 11/06/16 11/06/16 11/06/16 04:56 06:25 06:25 WBC RBC 2.50 L Hgb 7.3 L Hct 22.5 L MCV MCH MCHC RDW 16.9 H Plt Count Lymph % (Auto) [place] % (Auto) 10.5 H Lymph # [place] # 1.1 H Baso # Seg Neutrophils % Seg Neuts % (Manual) Lymphocytes % (Manual) Monocytes % (Manual) Eosinophils % (Manual) Basophils % (Manual) Nucleated RBC % Seg Neutrophils # Seg Neutrophils # Man Lymphocytes # (Manual) Monocytes # (Manual) Eosinophils # (Manual) Basophils # (Manual) PT INR Fibrinogen dRVVT Confirm Interp Factor V Activity POC ABG pH POC ABG pCO2 POC ABG pO2 ABG pO2 ABG HCO3 ABG Base Excess ABG Hemoglobin Oxyhemoglobin Sodium Potassium 5.1 H Chloride 95.9 L Carbon Dioxide BUN 52 H Creatinine 1.8 H Glucose 117 H POC Glucose 120 H Lactic Acid Calcium Ionized Calcium Phosphorus Magnesium Direct Bilirubin AST 103 H ALT 77 H Alkaline Phosphatase 285 H Lactate Dehydrogenase Troponin T C-Reactive Protein Total Protein 6.2 L Albumin 1.8 L Prealbumin 0.180 L Triglycerides Cholesterol LDL Cholesterol Direct HDL Cholesterol 25-OH Vitamin D Total PTH Intact Urine pH Urine WBC (Auto) Urine Creatinine Urine Total Protein Fluid Total Protein Vancomycin Trough Rheumatoid Factor Complement C4 Miscellaneous Test Crossmatch 11/06/16 11/06/16 11/06/16 11:56 17:14 23:52 WBC RBC Hgb Hct MCV MCH MCHC RDW Plt Count Lymph % (Auto) [place] % (Auto) Lymph # [place] # Baso # Seg Neutrophils % Seg Neuts % (Manual) Lymphocytes % (Manual) Monocytes % (Manual) Eosinophils % (Manual) Basophils % (Manual) Nucleated RBC % Seg Neutrophils # Seg Neutrophils # Man Lymphocytes # (Manual) Monocytes # (Manual) Eosinophils # (Manual) Basophils # (Manual) PT INR Fibrinogen dRVVT Confirm Interp Factor V Activity POC ABG pH POC ABG pCO2 POC ABG pO2 ABG pO2 ABG HCO3 ABG Base Excess ABG Hemoglobin Oxyhemoglobin Sodium Potassium Chloride Carbon Dioxide BUN Creatinine Glucose POC Glucose 141 H 125 H 130 H Lactic Acid Calcium Ionized Calcium Phosphorus Magnesium Direct Bilirubin AST ALT Alkaline Phosphatase Lactate Dehydrogenase Troponin T C-Reactive Protein Total Protein Albumin Prealbumin Triglycerides Cholesterol LDL Cholesterol Direct HDL Cholesterol 25-OH Vitamin D Total PTH Intact Urine pH Urine WBC (Auto) Urine Creatinine Urine Total Protein Fluid Total Protein Vancomycin Trough Rheumatoid Factor Complement C4 Miscellaneous Test Crossmatch 11/07/16 11/07/16 11/07/16 06:30 06:30 09:37 WBC RBC 2.18 L Hgb 6.3 L Hct 19.7 L* MCV MCH MCHC RDW 16.8 H Plt Count Lymph % (Auto) [place] % (Auto) 10.0 H Lymph # [place] # 1.0 H Baso # Seg Neutrophils % Seg Neuts % (Manual) Lymphocytes % (Manual) Monocytes % (Manual) Eosinophils % (Manual) Basophils % (Manual) Nucleated RBC % Seg Neutrophils # Seg Neutrophils # Man Lymphocytes # (Manual) Monocytes # (Manual) Eosinophils # (Manual) Basophils # (Manual) PT INR Fibrinogen dRVVT Confirm Interp Factor V Activity POC ABG pH POC ABG pCO2 POC ABG pO2 ABG pO2 ABG HCO3 ABG Base Excess ABG Hemoglobin Oxyhemoglobin Sodium 135 L Potassium Chloride 95.6 L Carbon Dioxide BUN 70 H Creatinine 2.0 H Glucose 126 H POC Glucose Lactic Acid Calcium Ionized Calcium Phosphorus Magnesium Direct Bilirubin AST ALT Alkaline Phosphatase Lactate Dehydrogenase Troponin T C-Reactive Protein Total Protein Albumin Prealbumin Triglycerides Cholesterol LDL Cholesterol Direct HDL Cholesterol 25-OH Vitamin D Total PTH Intact Urine pH Urine WBC (Auto) Urine Creatinine Urine Total Protein Fluid Total Protein Vancomycin Trough Rheumatoid Factor Complement C4 Miscellaneous Test Crossmatch See Detail 11/07/16 11/07/16 11/07/16 12:52 18:51 21:26 WBC RBC Hgb Hct MCV MCH MCHC RDW Plt Count Lymph % (Auto) [place] % (Auto) Lymph # [place] # Baso # Seg Neutrophils % Seg Neuts % (Manual) Lymphocytes % (Manual) Monocytes % (Manual) Eosinophils % (Manual) Basophils % (Manual) Nucleated RBC % Seg Neutrophils # Seg Neutrophils # Man Lymphocytes # (Manual) Monocytes # (Manual) Eosinophils # (Manual) Basophils # (Manual) PT INR Fibrinogen dRVVT Confirm Interp Factor V Activity POC ABG pH 7.523 H POC ABG pCO2 34.6 L POC ABG pO2 53 L ABG pO2 ABG HCO3 ABG Base Excess ABG Hemoglobin Oxyhemoglobin Sodium Potassium Chloride Carbon Dioxide BUN Creatinine Glucose POC Glucose 142 H 155 H Lactic Acid Calcium Ionized Calcium Phosphorus Magnesium Direct Bilirubin AST ALT Alkaline Phosphatase Lactate Dehydrogenase Troponin T C-Reactive Protein Total Protein Albumin Prealbumin Triglycerides Cholesterol LDL Cholesterol Direct HDL Cholesterol 25-OH Vitamin D Total PTH Intact Urine pH Urine WBC (Auto) Urine Creatinine Urine Total Protein Fluid Total Protein Vancomycin Trough Rheumatoid Factor Complement C4 Miscellaneous Test Crossmatch 11/07/16 11/08/16 11/08/16 21:34 13:03 23:37 WBC RBC 2.63 L Hgb 7.7 L Hct 22.7 L MCV MCH MCHC RDW 17.0 H Plt Count Lymph % (Auto) [place] % (Auto) Lymph # [place] # Baso # Seg Neutrophils % Seg Neuts % (Manual) Lymphocytes % (Manual) Monocytes % (Manual) Eosinophils % (Manual) Basophils % (Manual) Nucleated RBC % Seg Neutrophils # Seg Neutrophils # Man Lymphocytes # (Manual) Monocytes # (Manual) Eosinophils # (Manual) Basophils # (Manual) PT INR Fibrinogen dRVVT Confirm Interp Factor V Activity POC ABG pH 7.478 H POC ABG pCO2 34.0 L POC ABG pO2 50 L ABG pO2 ABG HCO3 ABG Base Excess ABG Hemoglobin Oxyhemoglobin Sodium Potassium Chloride Carbon Dioxide BUN Creatinine Glucose POC Glucose 113 H Lactic Acid Calcium Ionized Calcium Phosphorus Magnesium Direct Bilirubin AST ALT Alkaline Phosphatase Lactate Dehydrogenase Troponin T C-Reactive Protein Total Protein Albumin Prealbumin Triglycerides Cholesterol LDL Cholesterol Direct HDL Cholesterol 25-OH Vitamin D Total PTH Intact Urine pH Urine WBC (Auto) Urine Creatinine Urine Total Protein Fluid Total Protein Vancomycin Trough Rheumatoid Factor Complement C4 Miscellaneous Test Crossmatch 11/09/16 11/09/16 11/09/16 04:35 10:15 18:21 WBC RBC 2.68 L Hgb 7.8 L Hct 23.3 L MCV MCH MCHC RDW 17.0 H Plt Count Lymph % (Auto) [place] % (Auto) 12.1 H Lymph # [place] # 1.1 H Baso # Seg Neutrophils % Seg Neuts % (Manual) Lymphocytes % (Manual) Monocytes % (Manual) Eosinophils % (Manual) Basophils % (Manual) Nucleated RBC % Seg Neutrophils # Seg Neutrophils # Man Lymphocytes # (Manual) Monocytes # (Manual) Eosinophils # (Manual) Basophils # (Manual) PT INR Fibrinogen dRVVT Confirm Interp Factor V Activity POC ABG pH POC ABG pCO2 POC ABG pO2 ABG pO2 ABG HCO3 ABG Base Excess ABG Hemoglobin Oxyhemoglobin Sodium Potassium Chloride Carbon Dioxide BUN 51 H Creatinine 1.8 H Glucose POC Glucose 60 L Lactic Acid Calcium 8.3 L Ionized Calcium Phosphorus Magnesium Direct Bilirubin AST ALT Alkaline Phosphatase Lactate Dehydrogenase Troponin T C-Reactive Protein Total Protein Albumin Prealbumin Triglycerides Cholesterol LDL Cholesterol Direct HDL Cholesterol 25-OH Vitamin D Total PTH Intact Urine pH Urine WBC (Auto) Urine Creatinine Urine Total Protein Fluid Total Protein Vancomycin Trough Rheumatoid Factor Complement C4 Miscellaneous Test Crossmatch 11/09/16 11/10/16 11/10/16 18:55 07:00 11:51 WBC RBC Hgb Hct MCV MCH MCHC RDW Plt Count Lymph % (Auto) [place] % (Auto) Lymph # [place] # Baso # Seg Neutrophils % Seg Neuts % (Manual) Lymphocytes % (Manual) Monocytes % (Manual) Eosinophils % (Manual) Basophils % (Manual) Nucleated RBC % Seg Neutrophils # Seg Neutrophils # Man Lymphocytes # (Manual) Monocytes # (Manual) Eosinophils # (Manual) Basophils # (Manual) PT INR Fibrinogen dRVVT Confirm Interp Factor V Activity POC ABG pH POC ABG pCO2 POC ABG pO2 ABG pO2 ABG HCO3 ABG Base Excess ABG Hemoglobin Oxyhemoglobin Sodium Potassium 3.0 L D Chloride 97.4 L Carbon Dioxide BUN 28 H Creatinine 1.3 H Glucose POC Glucose 68 L 120 H Lactic Acid Calcium 7.8 L Ionized Calcium Phosphorus Magnesium Direct Bilirubin AST ALT Alkaline Phosphatase Lactate Dehydrogenase Troponin T C-Reactive Protein Total Protein Albumin Prealbumin Triglycerides Cholesterol LDL Cholesterol Direct HDL Cholesterol 25-OH Vitamin D Total PTH Intact Urine pH Urine WBC (Auto) Urine Creatinine Urine Total Protein Fluid Total Protein Vancomycin Trough Rheumatoid Factor Complement C4 Miscellaneous Test Crossmatch 11/10/16 11/11/16 11/11/16 14:20 06:59 06:59 WBC RBC 2.81 L Hgb 8.1 L Hct 24.4 L MCV MCH MCHC RDW 16.4 H Plt Count Lymph % (Auto) [place] % (Auto) 10.8 H Lymph # [place] # 1.0 H Baso # Seg Neutrophils % Seg Neuts % (Manual) Lymphocytes % (Manual) Monocytes % (Manual) Eosinophils % (Manual) Basophils % (Manual) Nucleated RBC % Seg Neutrophils # Seg Neutrophils # Man Lymphocytes # (Manual) Monocytes # (Manual) Eosinophils # (Manual) Basophils # (Manual) PT INR Fibrinogen dRVVT Confirm Interp Factor V Activity POC ABG pH POC ABG pCO2 POC ABG pO2 ABG pO2 ABG HCO3 ABG Base Excess ABG Hemoglobin Oxyhemoglobin Sodium Potassium Chloride Carbon Dioxide BUN Creatinine Glucose POC Glucose Lactic Acid Calcium Ionized Calcium Phosphorus Magnesium Direct Bilirubin AST ALT Alkaline Phosphatase Lactate Dehydrogenase 196 H Troponin T C-Reactive Protein Total Protein 6.1 L Albumin Prealbumin Triglycerides Cholesterol LDL Cholesterol Direct HDL Cholesterol 25-OH Vitamin D Total PTH Intact Urine pH Urine WBC (Auto) Urine Creatinine Urine Total Protein Fluid Total Protein < 3.0 L Vancomycin Trough Rheumatoid Factor Complement C4 Miscellaneous Test Crossmatch 11/11/16 11/11/16 11/12/16 06:59 09:50 04:00 WBC RBC Hgb Hct MCV MCH MCHC RDW Plt Count Lymph % (Auto) [place] % (Auto) Lymph # [place] # Baso # Seg Neutrophils % Seg Neuts % (Manual) Lymphocytes % (Manual) Monocytes % (Manual) Eosinophils % (Manual) Basophils % (Manual) Nucleated RBC % Seg Neutrophils # Seg Neutrophils # Man Lymphocytes # (Manual) Monocytes # (Manual) Eosinophils # (Manual) Basophils # (Manual) PT INR 1.18 H Fibrinogen dRVVT Confirm Interp Factor V Activity POC ABG pH POC ABG pCO2 POC ABG pO2 ABG pO2 ABG HCO3 ABG Base Excess ABG Hemoglobin Oxyhemoglobin Sodium 136 L 133 L Potassium Chloride 96.1 L 94.8 L Carbon Dioxide 21 L BUN 37 H 42 H Creatinine 1.8 H 2.0 H Glucose POC Glucose Lactic Acid Calcium Ionized Calcium Phosphorus Magnesium Direct Bilirubin AST ALT Alkaline Phosphatase Lactate Dehydrogenase Troponin T C-Reactive Protein Total Protein Albumin Prealbumin Triglycerides Cholesterol LDL Cholesterol Direct HDL Cholesterol 25-OH Vitamin D Total PTH Intact Urine pH Urine WBC (Auto) Urine Creatinine Urine Total Protein Fluid Total Protein Vancomycin Trough Rheumatoid Factor Complement C4 Miscellaneous Test Crossmatch 11/12/16 11/12/16 11/13/16 04:00 23:55 05:53 WBC RBC Hgb 8.9 L Hct 27.2 L MCV MCH MCHC RDW Plt Count Lymph % (Auto) [place] % (Auto) Lymph # [place] # Baso # Seg Neutrophils % Seg Neuts % (Manual) Lymphocytes % (Manual) Monocytes % (Manual) Eosinophils % (Manual) Basophils % (Manual) Nucleated RBC % Seg Neutrophils # Seg Neutrophils # Man Lymphocytes # (Manual) Monocytes # (Manual) Eosinophils # (Manual) Basophils # (Manual) PT INR Fibrinogen dRVVT Confirm Interp Factor V Activity POC ABG pH POC ABG pCO2 POC ABG pO2 ABG pO2 ABG HCO3 ABG Base Excess ABG Hemoglobin Oxyhemoglobin Sodium Potassium Chloride Carbon Dioxide BUN Creatinine Glucose POC Glucose 132 H 120 H Lactic Acid Calcium Ionized Calcium Phosphorus Magnesium Direct Bilirubin AST ALT Alkaline Phosphatase Lactate Dehydrogenase Troponin T C-Reactive Protein Total Protein Albumin Prealbumin Triglycerides Cholesterol LDL Cholesterol Direct HDL Cholesterol 25-OH Vitamin D Total PTH Intact Urine pH Urine WBC (Auto) Urine Creatinine Urine Total Protein Fluid Total Protein Vancomycin Trough Rheumatoid Factor Complement C4 Miscellaneous Test Crossmatch 11/13/16 11/13/16 11/13/16 11:43 17:09 23:41 WBC RBC Hgb Hct MCV MCH MCHC RDW Plt Count Lymph % (Auto) [place] % (Auto) Lymph # [place] # Baso # Seg Neutrophils % Seg Neuts % (Manual) Lymphocytes % (Manual) Monocytes % (Manual) Eosinophils % (Manual) Basophils % (Manual) Nucleated RBC % Seg Neutrophils # Seg Neutrophils # Man Lymphocytes # (Manual) Monocytes # (Manual) Eosinophils # (Manual) Basophils # (Manual) PT INR Fibrinogen dRVVT Confirm Interp Factor V Activity POC ABG pH POC ABG pCO2 POC ABG pO2 ABG pO2 ABG HCO3 ABG Base Excess ABG Hemoglobin Oxyhemoglobin Sodium Potassium Chloride Carbon Dioxide BUN Creatinine Glucose POC Glucose 114 H 113 H 108 H Lactic Acid Calcium Ionized Calcium Phosphorus Magnesium Direct Bilirubin AST ALT Alkaline Phosphatase Lactate Dehydrogenase Troponin T C-Reactive Protein Total Protein Albumin Prealbumin Triglycerides Cholesterol LDL Cholesterol Direct HDL Cholesterol 25-OH Vitamin D Total PTH Intact Urine pH Urine WBC (Auto) Urine Creatinine Urine Total Protein Fluid Total Protein Vancomycin Trough Rheumatoid Factor Complement C4 Miscellaneous Test Crossmatch 11/13/16 11/15/16 11/15/16 Unknown 00:37 03:30 WBC 11.2 H RBC 2.72 L Hgb 7.6 L Hct 23.4 L MCV MCH MCHC RDW 16.5 H Plt Count Lymph % (Auto) [place] % (Auto) Lymph # [place] # Baso # Seg Neutrophils % Seg Neuts % (Manual) Lymphocytes % (Manual) Monocytes % (Manual) Eosinophils % (Manual) Basophils % (Manual) Nucleated RBC % Seg Neutrophils # Seg Neutrophils # Man Lymphocytes # (Manual) Monocytes # (Manual) Eosinophils # (Manual) Basophils # (Manual) PT INR Fibrinogen dRVVT Confirm Interp Factor V Activity POC ABG pH POC ABG pCO2 POC ABG pO2 ABG pO2 ABG HCO3 ABG Base Excess ABG Hemoglobin Oxyhemoglobin Sodium 135 L Potassium Chloride 95.2 L Carbon Dioxide BUN 52 H Creatinine 2.2 H Glucose POC Glucose 108 H Lactic Acid Calcium Ionized Calcium Phosphorus Magnesium Direct Bilirubin AST ALT Alkaline Phosphatase Lactate Dehydrogenase Troponin T C-Reactive Protein Total Protein Albumin Prealbumin Triglycerides Cholesterol LDL Cholesterol Direct HDL Cholesterol 25-OH Vitamin D Total PTH Intact Urine pH Urine WBC (Auto) Urine Creatinine Urine Total Protein Fluid Total Protein Vancomycin Trough Rheumatoid Factor Complement C4 Miscellaneous Test Crossmatch 11/15/16 11/15/16 11/15/16 03:30 05:04 11:50 WBC RBC Hgb Hct MCV MCH MCHC RDW Plt Count Lymph % (Auto) [place] % (Auto) Lymph # [place] # Baso # Seg Neutrophils % Seg Neuts % (Manual) Lymphocytes % (Manual) Monocytes % (Manual) Eosinophils % (Manual) Basophils % (Manual) Nucleated RBC % Seg Neutrophils # Seg Neutrophils # Man Lymphocytes # (Manual) Monocytes # (Manual) Eosinophils # (Manual) Basophils # (Manual) PT INR Fibrinogen dRVVT Confirm Interp Factor V Activity POC ABG pH POC ABG pCO2 POC ABG pO2 ABG pO2 ABG HCO3 ABG Base Excess ABG Hemoglobin Oxyhemoglobin Sodium Potassium 3.4 L Chloride Carbon Dioxide BUN 25 H Creatinine 1.5 H Glucose 103 H POC Glucose 121 H 144 H Lactic Acid Calcium Ionized Calcium Phosphorus Magnesium Direct Bilirubin AST ALT Alkaline Phosphatase Lactate Dehydrogenase Troponin T C-Reactive Protein Total Protein Albumin Prealbumin Triglycerides Cholesterol LDL Cholesterol Direct HDL Cholesterol 25-OH Vitamin D Total PTH Intact Urine pH Urine WBC (Auto) Urine Creatinine Urine Total Protein Fluid Total Protein Vancomycin Trough Rheumatoid Factor Complement C4 Miscellaneous Test Crossmatch 11/15/16 11/15/16 11/16/16 21:28 23:20 11:44 WBC RBC Hgb Hct MCV MCH MCHC RDW Plt Count Lymph % (Auto) [place] % (Auto) Lymph # [place] # Baso # Seg Neutrophils % Seg Neuts % (Manual) Lymphocytes % (Manual) Monocytes % (Manual) Eosinophils % (Manual) Basophils % (Manual) Nucleated RBC % Seg Neutrophils # Seg Neutrophils # Man Lymphocytes # (Manual) Monocytes # (Manual) Eosinophils # (Manual) Basophils # (Manual) PT INR Fibrinogen dRVVT Confirm Interp Factor V Activity POC ABG pH 7.462 H POC ABG pCO2 POC ABG pO2 71 L ABG pO2 ABG HCO3 ABG Base Excess ABG Hemoglobin Oxyhemoglobin Sodium Potassium Chloride Carbon Dioxide BUN Creatinine Glucose POC Glucose 116 H 133 H Lactic Acid Calcium Ionized Calcium Phosphorus Magnesium Direct Bilirubin AST ALT Alkaline Phosphatase Lactate Dehydrogenase Troponin T C-Reactive Protein Total Protein Albumin Prealbumin Triglycerides Cholesterol LDL Cholesterol Direct HDL Cholesterol 25-OH Vitamin D Total PTH Intact Urine pH Urine WBC (Auto) Urine Creatinine Urine Total Protein Fluid Total Protein Vancomycin Trough Rheumatoid Factor Complement C4 Miscellaneous Test Crossmatch 11/16/16 11/16/16 11/16/16 12:20 17:05 23:35 WBC 11.7 H RBC 2.73 L Hgb 7.6 L Hct 23.7 L MCV MCH MCHC RDW 16.6 H Plt Count Lymph % (Auto) [place] % (Auto) Lymph # [place] # Baso # Seg Neutrophils % Seg Neuts % (Manual) Lymphocytes % (Manual) Monocytes % (Manual) Eosinophils % (Manual) Basophils % (Manual) Nucleated RBC % Seg Neutrophils # Seg Neutrophils # Man Lymphocytes # (Manual) Monocytes # (Manual) Eosinophils # (Manual) Basophils # (Manual) PT INR Fibrinogen dRVVT Confirm Interp Factor V Activity POC ABG pH POC ABG pCO2 POC ABG pO2 ABG pO2 ABG HCO3 ABG Base Excess ABG Hemoglobin Oxyhemoglobin Sodium Potassium Chloride Carbon Dioxide BUN Creatinine Glucose POC Glucose 154 H 125 H Lactic Acid Calcium Ionized Calcium Phosphorus Magnesium Direct Bilirubin AST ALT Alkaline Phosphatase Lactate Dehydrogenase Troponin T C-Reactive Protein Total Protein Albumin Prealbumin Triglycerides Cholesterol LDL Cholesterol Direct HDL Cholesterol 25-OH Vitamin D Total PTH Intact Urine pH Urine WBC (Auto) Urine Creatinine Urine Total Protein Fluid Total Protein Vancomycin Trough Rheumatoid Factor Complement C4 Miscellaneous Test Crossmatch 11/17/16 11/17/16 11/17/16 03:20 03:20 03:20 WBC RBC 2.55 L Hgb 7.3 L Hct 21.9 L MCV MCH MCHC RDW 16.6 H Plt Count Lymph % (Auto) [place] % (Auto) 11.5 H Lymph # [place] # 1.1 H Baso # Seg Neutrophils % Seg Neuts % (Manual) Lymphocytes % (Manual) Monocytes % (Manual) Eosinophils % (Manual) Basophils % (Manual) Nucleated RBC % Seg Neutrophils # Seg Neutrophils # Man Lymphocytes # (Manual) Monocytes # (Manual) Eosinophils # (Manual) Basophils # (Manual) PT 16.8 H INR 1.37 H Fibrinogen dRVVT Confirm Interp Factor V Activity POC ABG pH POC ABG pCO2 POC ABG pO2 ABG pO2 ABG HCO3 ABG Base Excess ABG Hemoglobin Oxyhemoglobin Sodium Potassium 3.5 L Chloride Carbon Dioxide BUN 21 H Creatinine Glucose POC Glucose Lactic Acid Calcium 7.9 L Ionized Calcium Phosphorus Magnesium Direct Bilirubin AST ALT Alkaline Phosphatase Lactate Dehydrogenase Troponin T C-Reactive Protein Total Protein Albumin Prealbumin Triglycerides Cholesterol LDL Cholesterol Direct HDL Cholesterol 25-OH Vitamin D Total PTH Intact Urine pH Urine WBC (Auto) Urine Creatinine Urine Total Protein Fluid Total Protein Vancomycin Trough Rheumatoid Factor Complement C4 Miscellaneous Test Crossmatch 11/17/16 11/17/16 11/17/16 06:34 11:21 21:22 WBC RBC Hgb Hct MCV MCH MCHC RDW Plt Count Lymph % (Auto) [place] % (Auto) Lymph # [place] # Baso # Seg Neutrophils % Seg Neuts % (Manual) Lymphocytes % (Manual) Monocytes % (Manual) Eosinophils % (Manual) Basophils % (Manual) Nucleated RBC % Seg Neutrophils # Seg Neutrophils # Man Lymphocytes # (Manual) Monocytes # (Manual) Eosinophils # (Manual) Basophils # (Manual) PT INR Fibrinogen dRVVT Confirm Interp Factor V Activity POC ABG pH 7.467 H POC ABG pCO2 POC ABG pO2 73 L ABG pO2 ABG HCO3 ABG Base Excess ABG Hemoglobin Oxyhemoglobin Sodium Potassium Chloride Carbon Dioxide BUN Creatinine Glucose POC Glucose 121 H 119 H Lactic Acid Calcium Ionized Calcium Phosphorus Magnesium Direct Bilirubin AST ALT Alkaline Phosphatase Lactate Dehydrogenase Troponin T C-Reactive Protein Total Protein Albumin Prealbumin Triglycerides Cholesterol LDL Cholesterol Direct HDL Cholesterol 25-OH Vitamin D Total PTH Intact Urine pH Urine WBC (Auto) Urine Creatinine Urine Total Protein Fluid Total Protein Vancomycin Trough Rheumatoid Factor Complement C4 Miscellaneous Test Crossmatch 11/18/16 11/18/16 11/19/16 12:16 17:19 00:00 WBC RBC Hgb Hct MCV MCH MCHC RDW Plt Count Lymph % (Auto) [place] % (Auto) Lymph # [place] # Baso # Seg Neutrophils % Seg Neuts % (Manual) Lymphocytes % (Manual) Monocytes % (Manual) Eosinophils % (Manual) Basophils % (Manual) Nucleated RBC % Seg Neutrophils # Seg Neutrophils # Man Lymphocytes # (Manual) Monocytes # (Manual) Eosinophils # (Manual) Basophils # (Manual) PT INR Fibrinogen dRVVT Confirm Interp Factor V Activity POC ABG pH POC ABG pCO2 POC ABG pO2 ABG pO2 ABG HCO3 ABG Base Excess ABG Hemoglobin Oxyhemoglobin Sodium Potassium Chloride Carbon Dioxide BUN Creatinine Glucose POC Glucose 124 H 162 H 139 H Lactic Acid Calcium Ionized Calcium Phosphorus Magnesium Direct Bilirubin AST ALT Alkaline Phosphatase Lactate Dehydrogenase Troponin T C-Reactive Protein Total Protein Albumin Prealbumin Triglycerides Cholesterol LDL Cholesterol Direct HDL Cholesterol 25-OH Vitamin D Total PTH Intact Urine pH Urine WBC (Auto) Urine Creatinine Urine Total Protein Fluid Total Protein Vancomycin Trough Rheumatoid Factor Complement C4 Miscellaneous Test Crossmatch 11/19/16 11/19/16 11/20/16 05:00 12:43 00:40 WBC RBC Hgb Hct MCV MCH MCHC RDW Plt Count Lymph % (Auto) [place] % (Auto) Lymph # [place] # Baso # Seg Neutrophils % Seg Neuts % (Manual) Lymphocytes % (Manual) Monocytes % (Manual) Eosinophils % (Manual) Basophils % (Manual) Nucleated RBC % Seg Neutrophils # Seg Neutrophils # Man Lymphocytes # (Manual) Monocytes # (Manual) Eosinophils # (Manual) Basophils # (Manual) PT INR Fibrinogen dRVVT Confirm Interp Factor V Activity POC ABG pH POC ABG pCO2 POC ABG pO2 ABG pO2 ABG HCO3 ABG Base Excess ABG Hemoglobin Oxyhemoglobin Sodium Potassium Chloride Carbon Dioxide BUN Creatinine Glucose POC Glucose 110 H 125 H 136 H Lactic Acid Calcium Ionized Calcium Phosphorus Magnesium Direct Bilirubin AST ALT Alkaline Phosphatase Lactate Dehydrogenase Troponin T C-Reactive Protein Total Protein Albumin Prealbumin Triglycerides Cholesterol LDL Cholesterol Direct HDL Cholesterol 25-OH Vitamin D Total PTH Intact Urine pH Urine WBC (Auto) Urine Creatinine Urine Total Protein Fluid Total Protein Vancomycin Trough Rheumatoid Factor Complement C4 Miscellaneous Test Crossmatch 11/20/16 11/20/16 11/20/16 05:00 05:00 05:51 WBC 13.1 H RBC 2.74 L Hgb 7.7 L Hct 23.6 L MCV MCH MCHC RDW 16.9 H Plt Count Lymph % (Auto) [place] % (Auto) 10.8 H Lymph # [place] # 1.4 H Baso # Seg Neutrophils % Seg Neuts % (Manual) Lymphocytes % (Manual) Monocytes % (Manual) Eosinophils % (Manual) Basophils % (Manual) Nucleated RBC % Seg Neutrophils # 7.9 H Seg Neutrophils # Man Lymphocytes # (Manual) Monocytes # (Manual) Eosinophils # (Manual) Basophils # (Manual) PT INR Fibrinogen dRVVT Confirm Interp Factor V Activity POC ABG pH POC ABG pCO2 POC ABG pO2 ABG pO2 ABG HCO3 ABG Base Excess ABG Hemoglobin Oxyhemoglobin Sodium Potassium Chloride Carbon Dioxide BUN 31 H Creatinine 1.8 H Glucose 129 H POC Glucose 133 H Lactic Acid Calcium Ionized Calcium Phosphorus Magnesium Direct Bilirubin AST ALT Alkaline Phosphatase Lactate Dehydrogenase Troponin T C-Reactive Protein Total Protein Albumin Prealbumin Triglycerides Cholesterol LDL Cholesterol Direct HDL Cholesterol 25-OH Vitamin D Total PTH Intact Urine pH Urine WBC (Auto) Urine Creatinine Urine Total Protein Fluid Total Protein Vancomycin Trough Rheumatoid Factor Complement C4 Miscellaneous Test Crossmatch 11/20/16 11/20/16 11/21/16 12:40 18:10 01:20 WBC RBC Hgb Hct MCV MCH MCHC RDW Plt Count Lymph % (Auto) [place] % (Auto) Lymph # [place] # Baso # Seg Neutrophils % Seg Neuts % (Manual) Lymphocytes % (Manual) Monocytes % (Manual) Eosinophils % (Manual) Basophils % (Manual) Nucleated RBC % Seg Neutrophils # Seg Neutrophils # Man Lymphocytes # (Manual) Monocytes # (Manual) Eosinophils # (Manual) Basophils # (Manual) PT INR Fibrinogen dRVVT Confirm Interp Factor V Activity POC ABG pH POC ABG pCO2 POC ABG pO2 ABG pO2 ABG HCO3 ABG Base Excess ABG Hemoglobin Oxyhemoglobin Sodium Potassium Chloride Carbon Dioxide BUN Creatinine Glucose POC Glucose 134 H 138 H 136 H Lactic Acid Calcium Ionized Calcium Phosphorus Magnesium Direct Bilirubin AST ALT Alkaline Phosphatase Lactate Dehydrogenase Troponin T C-Reactive Protein Total Protein Albumin Prealbumin Triglycerides Cholesterol LDL Cholesterol Direct HDL Cholesterol 25-OH Vitamin D Total PTH Intact Urine pH Urine WBC (Auto) Urine Creatinine Urine Total Protein Fluid Total Protein Vancomycin Trough Rheumatoid Factor Complement C4 Miscellaneous Test Crossmatch 11/21/16 11/21/16 11/21/16 07:04 07:45 07:45 WBC 22.0 H RBC 2.91 L Hgb 8.2 L Hct 25.4 L MCV MCH MCHC RDW 17.1 H Plt Count Lymph % (Auto) [place] % (Auto) Lymph # [place] # Baso # Seg Neutrophils % Seg Neuts % (Manual) Lymphocytes % (Manual) 8.0 L Monocytes % (Manual) Eosinophils % (Manual) Basophils % (Manual) Nucleated RBC % Seg Neutrophils # Seg Neutrophils # Man 14.7 H Lymphocytes # (Manual) Monocytes # (Manual) 1.1 H Eosinophils # (Manual) Basophils # (Manual) PT INR Fibrinogen dRVVT Confirm Interp Factor V Activity POC ABG pH POC ABG pCO2 POC ABG pO2 ABG pO2 ABG HCO3 ABG Base Excess ABG Hemoglobin Oxyhemoglobin Sodium Potassium Chloride Carbon Dioxide BUN 42 H Creatinine 2.0 H Glucose POC Glucose 108 H Lactic Acid Calcium Ionized Calcium Phosphorus Magnesium Direct Bilirubin AST ALT Alkaline Phosphatase Lactate Dehydrogenase Troponin T C-Reactive Protein Total Protein Albumin Prealbumin Triglycerides Cholesterol LDL Cholesterol Direct HDL Cholesterol 25-OH Vitamin D Total PTH Intact Urine pH Urine WBC (Auto) Urine Creatinine Urine Total Protein Fluid Total Protein Vancomycin Trough Rheumatoid Factor Complement C4 Miscellaneous Test Crossmatch 11/21/16 11/21/16 11/21/16 08:38 10:09 11:20 WBC RBC Hgb Hct MCV MCH MCHC RDW Plt Count Lymph % (Auto) [place] % (Auto) Lymph # [place] # Baso # Seg Neutrophils % Seg Neuts % (Manual) Lymphocytes % (Manual) Monocytes % (Manual) Eosinophils % (Manual) Basophils % (Manual) Nucleated RBC % Seg Neutrophils # Seg Neutrophils # Man Lymphocytes # (Manual) Monocytes # (Manual) Eosinophils # (Manual) Basophils # (Manual) PT INR Fibrinogen dRVVT Confirm Interp Factor V Activity POC ABG pH 7.346 L POC ABG pCO2 34.4 L POC ABG pO2 314 H ABG pO2 ABG HCO3 ABG Base Excess ABG Hemoglobin Oxyhemoglobin Sodium Potassium Chloride Carbon Dioxide BUN Creatinine Glucose POC Glucose 195 H 153 H Lactic Acid Calcium Ionized Calcium Phosphorus Magnesium Direct Bilirubin AST ALT Alkaline Phosphatase Lactate Dehydrogenase Troponin T C-Reactive Protein Total Protein Albumin Prealbumin Triglycerides Cholesterol LDL Cholesterol Direct HDL Cholesterol 25-OH Vitamin D Total PTH Intact Urine pH Urine WBC (Auto) Urine Creatinine Urine Total Protein Fluid Total Protein Vancomycin Trough Rheumatoid Factor Complement C4 Miscellaneous Test Crossmatch 11/21/16 11/22/16 11/22/16 23:37 04:48 05:00 WBC 29.7 H RBC 2.73 L Hgb 7.5 L Hct 24.2 L MCV MCH 27 L MCHC RDW 17.4 H Plt Count Lymph % (Auto) [place] % (Auto) Lymph # [place] # Baso # Seg Neutrophils % Seg Neuts % (Manual) Lymphocytes % (Manual) 7.0 L Monocytes % (Manual) Eosinophils % (Manual) Basophils % (Manual) Nucleated RBC % Seg Neutrophils # Seg Neutrophils # Man 15.4 H Lymphocytes # (Manual) Monocytes # (Manual) Eosinophils # (Manual) Basophils # (Manual) PT INR Fibrinogen dRVVT Confirm Interp Factor V Activity POC ABG pH POC ABG pCO2 24.6 L POC ABG pO2 189 H ABG pO2 ABG HCO3 ABG Base Excess ABG Hemoglobin Oxyhemoglobin Sodium Potassium Chloride Carbon Dioxide BUN Creatinine Glucose POC Glucose 65 L Lactic Acid Calcium Ionized Calcium Phosphorus Magnesium Direct Bilirubin AST ALT Alkaline Phosphatase Lactate Dehydrogenase Troponin T C-Reactive Protein Total Protein Albumin Prealbumin Triglycerides Cholesterol LDL Cholesterol Direct HDL Cholesterol 25-OH Vitamin D Total PTH Intact Urine pH Urine WBC (Auto) Urine Creatinine Urine Total Protein Fluid Total Protein Vancomycin Trough Rheumatoid Factor Complement C4 Miscellaneous Test Crossmatch 11/22/16 11/23/16 11/23/16 05:00 03:44 04:06 WBC RBC 2.52 L Hgb 7.2 L Hct 21.5 L MCV MCH MCHC RDW 17.1 H Plt Count Lymph % (Auto) [place] % (Auto) 12.4 H Lymph # [place] # 1.4 H Baso # Seg Neutrophils % Seg Neuts % (Manual) Lymphocytes % (Manual) Monocytes % (Manual) Eosinophils % (Manual) Basophils % (Manual) Nucleated RBC % Seg Neutrophils # Seg Neutrophils # Man Lymphocytes # (Manual) Monocytes # (Manual) Eosinophils # (Manual) Basophils # (Manual) PT INR Fibrinogen dRVVT Confirm Interp Factor V Activity POC ABG pH 7.493 H POC ABG pCO2 29.5 L POC ABG pO2 49 L ABG pO2 ABG HCO3 ABG Base Excess ABG Hemoglobin Oxyhemoglobin Sodium 134 L Potassium Chloride 95.9 L Carbon Dioxide 14 L D BUN 51 H Creatinine 2.6 H Glucose POC Glucose Lactic Acid Calcium Ionized Calcium Phosphorus Magnesium Direct Bilirubin AST ALT Alkaline Phosphatase Lactate Dehydrogenase Troponin T C-Reactive Protein Total Protein Albumin Prealbumin Triglycerides Cholesterol LDL Cholesterol Direct HDL Cholesterol 25-OH Vitamin D Total PTH Intact Urine pH Urine WBC (Auto) Urine Creatinine Urine Total Protein Fluid Total Protein Vancomycin Trough Rheumatoid Factor Complement C4 Miscellaneous Test Crossmatch 11/23/16 11/23/16 11/24/16 04:06 11:29 06:39 WBC RBC Hgb Hct MCV MCH MCHC RDW Plt Count Lymph % (Auto) [place] % (Auto) Lymph # [place] # Baso # Seg Neutrophils % Seg Neuts % (Manual) Lymphocytes % (Manual) Monocytes % (Manual) Eosinophils % (Manual) Basophils % (Manual) Nucleated RBC % Seg Neutrophils # Seg Neutrophils # Man Lymphocytes # (Manual) Monocytes # (Manual) Eosinophils # (Manual) Basophils # (Manual) PT INR Fibrinogen dRVVT Confirm Interp Factor V Activity POC ABG pH POC ABG pCO2 POC ABG pO2 ABG pO2 ABG HCO3 ABG Base Excess ABG Hemoglobin Oxyhemoglobin Sodium 136 L Potassium Chloride 95.2 L Carbon Dioxide BUN 60 H Creatinine 2.9 H Glucose POC Glucose 69 L 305 H Lactic Acid Calcium Ionized Calcium Phosphorus Magnesium 1.60 L Direct Bilirubin AST ALT Alkaline Phosphatase Lactate Dehydrogenase Troponin T C-Reactive Protein Total Protein Albumin Prealbumin Triglycerides Cholesterol LDL Cholesterol Direct HDL Cholesterol 25-OH Vitamin D Total PTH Intact Urine pH Urine WBC (Auto) Urine Creatinine Urine Total Protein Fluid Total Protein Vancomycin Trough Rheumatoid Factor Complement C4 Miscellaneous Test Crossmatch 11/24/16 11/24/16 11/24/16 06:43 08:08 08:08 WBC 11.2 H RBC 2.47 L Hgb 6.8 L Hct 20.6 L MCV MCH MCHC RDW 17.0 H Plt Count Lymph % (Auto) [place] % (Auto) 10.3 H Lymph # [place] # 1.2 H Baso # Seg Neutrophils % Seg Neuts % (Manual) Lymphocytes % (Manual) Monocytes % (Manual) Eosinophils % (Manual) Basophils % (Manual) Nucleated RBC % Seg Neutrophils # Seg Neutrophils # Man Lymphocytes # (Manual) Monocytes # (Manual) Eosinophils # (Manual) Basophils # (Manual) PT INR Fibrinogen dRVVT Confirm Interp Factor V Activity POC ABG pH POC ABG pCO2 POC ABG pO2 ABG pO2 ABG HCO3 ABG Base Excess ABG Hemoglobin Oxyhemoglobin Sodium 135 L Potassium Chloride 96.3 L Carbon Dioxide BUN 61 H Creatinine 3.1 H Glucose POC Glucose 62 L Lactic Acid Calcium 8.2 L Ionized Calcium Phosphorus Magnesium Direct Bilirubin AST ALT Alkaline Phosphatase Lactate Dehydrogenase Troponin T C-Reactive Protein Total Protein Albumin Prealbumin Triglycerides Cholesterol LDL Cholesterol Direct HDL Cholesterol 25-OH Vitamin D Total PTH Intact Urine pH Urine WBC (Auto) Urine Creatinine Urine Total Protein Fluid Total Protein Vancomycin Trough Rheumatoid Factor Complement C4 Miscellaneous Test Crossmatch 11/24/16 11/24/16 11/24/16 08:34 11:20 12:41 WBC RBC Hgb Hct MCV MCH MCHC RDW Plt Count Lymph % (Auto) [place] % (Auto) Lymph # [place] # Baso # Seg Neutrophils % Seg Neuts % (Manual) Lymphocytes % (Manual) Monocytes % (Manual) Eosinophils % (Manual) Basophils % (Manual) Nucleated RBC % Seg Neutrophils # Seg Neutrophils # Man Lymphocytes # (Manual) Monocytes # (Manual) Eosinophils # (Manual) Basophils # (Manual) PT INR Fibrinogen dRVVT Confirm Interp Factor V Activity POC ABG pH POC ABG pCO2 POC ABG pO2 ABG pO2 ABG HCO3 ABG Base Excess ABG Hemoglobin Oxyhemoglobin Sodium Potassium Chloride Carbon Dioxide BUN Creatinine Glucose POC Glucose 108 H Lactic Acid Calcium Ionized Calcium Phosphorus Magnesium 1.60 L Direct Bilirubin AST ALT Alkaline Phosphatase Lactate Dehydrogenase Troponin T C-Reactive Protein Total Protein Albumin Prealbumin Triglycerides Cholesterol LDL Cholesterol Direct HDL Cholesterol 25-OH Vitamin D Total PTH Intact Urine pH Urine WBC (Auto) Urine Creatinine Urine Total Protein Fluid Total Protein Vancomycin Trough Rheumatoid Factor Complement C4 Miscellaneous Test Crossmatch See Detail 11/25/16 11/25/16 11/25/16 00:03 04:42 04:42 WBC RBC 3.03 L Hgb 8.6 L Hct 25.3 L MCV MCH MCHC RDW 16.2 H Plt Count Lymph % (Auto) [place] % (Auto) 8.1 H Lymph # [place] # Baso # Seg Neutrophils % 71.3 H Seg Neuts % (Manual) Lymphocytes % (Manual) Monocytes % (Manual) Eosinophils % (Manual) Basophils % (Manual) Nucleated RBC % Seg Neutrophils # Seg Neutrophils # Man Lymphocytes # (Manual) Monocytes # (Manual) Eosinophils # (Manual) Basophils # (Manual) PT INR Fibrinogen dRVVT Confirm Interp Factor V Activity POC ABG pH POC ABG pCO2 POC ABG pO2 ABG pO2 ABG HCO3 ABG Base Excess ABG Hemoglobin Oxyhemoglobin Sodium Potassium Chloride Carbon Dioxide BUN 61 H Creatinine 3.0 H Glucose 102 H POC Glucose 113 H Lactic Acid Calcium 8.2 L Ionized Calcium Phosphorus Magnesium Direct Bilirubin AST ALT Alkaline Phosphatase 142 H Lactate Dehydrogenase Troponin T C-Reactive Protein Total Protein 5.7 L Albumin 1.5 L Prealbumin Triglycerides Cholesterol LDL Cholesterol Direct HDL Cholesterol 25-OH Vitamin D Total PTH Intact Urine pH Urine WBC (Auto) Urine Creatinine Urine Total Protein Fluid Total Protein Vancomycin Trough Rheumatoid Factor Complement C4 Miscellaneous Test Crossmatch 11/25/16 11/25/16 11/25/16 05:12 11:31 14:12 WBC RBC Hgb Hct MCV MCH MCHC RDW Plt Count Lymph % (Auto) [place] % (Auto) Lymph # [place] # Baso # Seg Neutrophils % Seg Neuts % (Manual) Lymphocytes % (Manual) Monocytes % (Manual) Eosinophils % (Manual) Basophils % (Manual) Nucleated RBC % Seg Neutrophils # Seg Neutrophils # Man Lymphocytes # (Manual) Monocytes # (Manual) Eosinophils # (Manual) Basophils # (Manual) PT INR Fibrinogen dRVVT Confirm Interp Factor V Activity POC ABG pH 7.487 H POC ABG pCO2 POC ABG pO2 153 H ABG pO2 ABG HCO3 ABG Base Excess ABG Hemoglobin Oxyhemoglobin Sodium Potassium Chloride Carbon Dioxide BUN Creatinine Glucose POC Glucose 131 H 140 H Lactic Acid Calcium Ionized Calcium Phosphorus Magnesium Direct Bilirubin AST ALT Alkaline Phosphatase Lactate Dehydrogenase Troponin T C-Reactive Protein Total Protein Albumin Prealbumin Triglycerides Cholesterol LDL Cholesterol Direct HDL Cholesterol 25-OH Vitamin D Total PTH Intact Urine pH Urine WBC (Auto) Urine Creatinine Urine Total Protein Fluid Total Protein Vancomycin Trough Rheumatoid Factor Complement C4 Miscellaneous Test Crossmatch 11/25/16 11/26/16 11/26/16 17:23 00:09 05:13 WBC RBC 2.94 L Hgb 8.4 L Hct 24.6 L MCV MCH MCHC RDW 16.4 H Plt Count Lymph % (Auto) [place] % (Auto) 12.3 H Lymph # [place] # 1.1 H Baso # Seg Neutrophils % Seg Neuts % (Manual) Lymphocytes % (Manual) Monocytes % (Manual) Eosinophils % (Manual) Basophils % (Manual) Nucleated RBC % Seg Neutrophils # Seg Neutrophils # Man Lymphocytes # (Manual) Monocytes # (Manual) Eosinophils # (Manual) Basophils # (Manual) PT INR Fibrinogen dRVVT Confirm Interp Factor V Activity POC ABG pH POC ABG pCO2 POC ABG pO2 ABG pO2 ABG HCO3 ABG Base Excess ABG Hemoglobin Oxyhemoglobin Sodium Potassium Chloride Carbon Dioxide BUN Creatinine Glucose POC Glucose 146 H 112 H Lactic Acid Calcium Ionized Calcium Phosphorus Magnesium Direct Bilirubin AST ALT Alkaline Phosphatase Lactate Dehydrogenase Troponin T C-Reactive Protein Total Protein Albumin Prealbumin Triglycerides Cholesterol LDL Cholesterol Direct HDL Cholesterol 25-OH Vitamin D Total PTH Intact Urine pH Urine WBC (Auto) Urine Creatinine Urine Total Protein Fluid Total Protein Vancomycin Trough Rheumatoid Factor Complement C4 Miscellaneous Test Crossmatch 11/26/16 11/26/16 11/26/16 05:13 05:28 11:53 WBC RBC Hgb Hct MCV MCH MCHC RDW Plt Count Lymph % (Auto) [place] % (Auto) Lymph # [place] # Baso # Seg Neutrophils % Seg Neuts % (Manual) Lymphocytes % (Manual) Monocytes % (Manual) Eosinophils % (Manual) Basophils % (Manual) Nucleated RBC % Seg Neutrophils # Seg Neutrophils # Man Lymphocytes # (Manual) Monocytes # (Manual) Eosinophils # (Manual) Basophils # (Manual) PT INR Fibrinogen dRVVT Confirm Interp Factor V Activity POC ABG pH POC ABG pCO2 POC ABG pO2 ABG pO2 ABG HCO3 ABG Base Excess ABG Hemoglobin Oxyhemoglobin Sodium Potassium Chloride 97.8 L Carbon Dioxide BUN 37 H Creatinine 2.0 H Glucose 109 H POC Glucose 117 H 111 H Lactic Acid Calcium 7.9 L Ionized Calcium Phosphorus 1.80 L D Magnesium Direct Bilirubin AST ALT Alkaline Phosphatase Lactate Dehydrogenase Troponin T C-Reactive Protein Total Protein Albumin Prealbumin Triglycerides Cholesterol LDL Cholesterol Direct HDL Cholesterol 25-OH Vitamin D Total PTH Intact Urine pH Urine WBC (Auto) Urine Creatinine Urine Total Protein Fluid Total Protein Vancomycin Trough Rheumatoid Factor Complement C4 Miscellaneous Test Crossmatch 11/26/16 11/27/16 11/27/16 17:14 04:50 06:02 WBC RBC Hgb Hct MCV MCH MCHC RDW Plt Count Lymph % (Auto) [place] % (Auto) Lymph # [place] # Baso # Seg Neutrophils % Seg Neuts % (Manual) Lymphocytes % (Manual) Monocytes % (Manual) Eosinophils % (Manual) Basophils % (Manual) Nucleated RBC % Seg Neutrophils # Seg Neutrophils # Man Lymphocytes # (Manual) Monocytes # (Manual) Eosinophils # (Manual) Basophils # (Manual) PT INR Fibrinogen dRVVT Confirm Interp Factor V Activity POC ABG pH POC ABG pCO2 POC ABG pO2 ABG pO2 75.2 L ABG HCO3 26.4 H ABG Base Excess ABG Hemoglobin 7.6 L Oxyhemoglobin 94.8 L Sodium Potassium Chloride Carbon Dioxide BUN 49 H Creatinine 2.3 H Glucose POC Glucose 115 H Lactic Acid Calcium Ionized Calcium Phosphorus 1.50 L Magnesium Direct Bilirubin AST ALT Alkaline Phosphatase Lactate Dehydrogenase Troponin T C-Reactive Protein Total Protein Albumin Prealbumin Triglycerides Cholesterol LDL Cholesterol Direct HDL Cholesterol 25-OH Vitamin D Total PTH Intact Urine pH Urine WBC (Auto) Urine Creatinine Urine Total Protein Fluid Total Protein Vancomycin Trough Rheumatoid Factor Complement C4 Miscellaneous Test Crossmatch 11/27/16 11/27/16 11/27/16 06:02 11:25 17:25 WBC 11.6 H RBC 2.75 L Hgb 7.6 L Hct 23.4 L MCV MCH MCHC RDW 16.5 H Plt Count Lymph % (Auto) [place] % (Auto) Lymph # [place] # Baso # Seg Neutrophils % Seg Neuts % (Manual) Lymphocytes % (Manual) Monocytes % (Manual) Eosinophils % (Manual) Basophils % (Manual) Nucleated RBC % Seg Neutrophils # Seg Neutrophils # Man Lymphocytes # (Manual) Monocytes # (Manual) Eosinophils # (Manual) Basophils # (Manual) PT INR Fibrinogen dRVVT Confirm Interp Factor V Activity POC ABG pH POC ABG pCO2 POC ABG pO2 ABG pO2 ABG HCO3 ABG Base Excess ABG Hemoglobin Oxyhemoglobin Sodium Potassium Chloride Carbon Dioxide BUN Creatinine Glucose POC Glucose 114 H 126 H Lactic Acid Calcium Ionized Calcium Phosphorus Magnesium Direct Bilirubin AST ALT Alkaline Phosphatase Lactate Dehydrogenase Troponin T C-Reactive Protein Total Protein Albumin Prealbumin Triglycerides Cholesterol LDL Cholesterol Direct HDL Cholesterol 25-OH Vitamin D Total PTH Intact Urine pH Urine WBC (Auto) Urine Creatinine Urine Total Protein Fluid Total Protein Vancomycin Trough Rheumatoid Factor Complement C4 Miscellaneous Test Crossmatch 11/28/16 11/28/16 11/28/16 04:45 05:33 05:44 WBC RBC Hgb Hct MCV MCH MCHC RDW Plt Count Lymph % (Auto) [place] % (Auto) Lymph # [place] # Baso # Seg Neutrophils % Seg Neuts % (Manual) Lymphocytes % (Manual) Monocytes % (Manual) Eosinophils % (Manual) Basophils % (Manual) Nucleated RBC % Seg Neutrophils # Seg Neutrophils # Man Lymphocytes # (Manual) Monocytes # (Manual) Eosinophils # (Manual) Basophils # (Manual) PT INR Fibrinogen dRVVT Confirm Interp Factor V Activity POC ABG pH POC ABG pCO2 POC ABG pO2 ABG pO2 99.3 H ABG HCO3 ABG Base Excess ABG Hemoglobin 8.3 L Oxyhemoglobin Sodium Potassium Chloride Carbon Dioxide BUN 63 H Creatinine 2.4 H Glucose 102 H POC Glucose 108 H Lactic Acid Calcium Ionized Calcium Phosphorus 1.80 L Magnesium Direct Bilirubin AST ALT Alkaline Phosphatase Lactate Dehydrogenase Troponin T C-Reactive Protein Total Protein Albumin Prealbumin Triglycerides Cholesterol LDL Cholesterol Direct HDL Cholesterol 25-OH Vitamin D Total PTH Intact Urine pH Urine WBC (Auto) Urine Creatinine Urine Total Protein Fluid Total Protein Vancomycin Trough Rheumatoid Factor Complement C4 Miscellaneous Test Crossmatch 11/28/16 11/28/16 11/28/16 12:31 16:09 23:46 WBC RBC Hgb Hct MCV MCH MCHC RDW Plt Count Lymph % (Auto) [place] % (Auto) Lymph # [place] # Baso # Seg Neutrophils % Seg Neuts % (Manual) Lymphocytes % (Manual) Monocytes % (Manual) Eosinophils % (Manual) Basophils % (Manual) Nucleated RBC % Seg Neutrophils # Seg Neutrophils # Man Lymphocytes # (Manual) Monocytes # (Manual) Eosinophils # (Manual) Basophils # (Manual) PT INR Fibrinogen dRVVT Confirm Interp Factor V Activity POC ABG pH POC ABG pCO2 POC ABG pO2 ABG pO2 ABG HCO3 ABG Base Excess ABG Hemoglobin Oxyhemoglobin Sodium Potassium Chloride Carbon Dioxide BUN Creatinine Glucose POC Glucose 126 H 111 H 119 H Lactic Acid Calcium Ionized Calcium Phosphorus Magnesium Direct Bilirubin AST ALT Alkaline Phosphatase Lactate Dehydrogenase Troponin T C-Reactive Protein Total Protein Albumin Prealbumin Triglycerides Cholesterol LDL Cholesterol Direct HDL Cholesterol 25-OH Vitamin D Total PTH Intact Urine pH Urine WBC (Auto) Urine Creatinine Urine Total Protein Fluid Total Protein Vancomycin Trough Rheumatoid Factor Complement C4 Miscellaneous Test Crossmatch 11/29/16 11/29/16 11/29/16 03:33 04:52 05:10 WBC RBC Hgb Hct MCV MCH MCHC RDW Plt Count Lymph % (Auto) [place] % (Auto) Lymph # [place] # Baso # Seg Neutrophils % Seg Neuts % (Manual) Lymphocytes % (Manual) Monocytes % (Manual) Eosinophils % (Manual) Basophils % (Manual) Nucleated RBC % Seg Neutrophils # Seg Neutrophils # Man Lymphocytes # (Manual) Monocytes # (Manual) Eosinophils # (Manual) Basophils # (Manual) PT INR Fibrinogen dRVVT Confirm Interp Factor V Activity POC ABG pH POC ABG pCO2 POC ABG pO2 ABG pO2 ABG HCO3 ABG Base Excess ABG Hemoglobin 7.0 L Oxyhemoglobin 94.9 L Sodium Potassium Chloride Carbon Dioxide BUN 73 H Creatinine 2.7 H Glucose POC Glucose 108 H Lactic Acid Calcium Ionized Calcium Phosphorus Magnesium Direct Bilirubin AST ALT Alkaline Phosphatase Lactate Dehydrogenase Troponin T C-Reactive Protein Total Protein Albumin Prealbumin Triglycerides Cholesterol LDL Cholesterol Direct HDL Cholesterol 25-OH Vitamin D Total PTH Intact Urine pH Urine WBC (Auto) Urine Creatinine Urine Total Protein Fluid Total Protein Vancomycin Trough Rheumatoid Factor Complement C4 Miscellaneous Test Crossmatch 11/29/16 11/29/16 11/29/16 12:16 18:05 23:46 WBC RBC Hgb Hct MCV MCH MCHC RDW Plt Count Lymph % (Auto) [place] % (Auto) Lymph # [place] # Baso # Seg Neutrophils % Seg Neuts % (Manual) Lymphocytes % (Manual) Monocytes % (Manual) Eosinophils % (Manual) Basophils % (Manual) Nucleated RBC % Seg Neutrophils # Seg Neutrophils # Man Lymphocytes # (Manual) Monocytes # (Manual) Eosinophils # (Manual) Basophils # (Manual) PT INR Fibrinogen dRVVT Confirm Interp Factor V Activity POC ABG pH POC ABG pCO2 POC ABG pO2 ABG pO2 ABG HCO3 ABG Base Excess ABG Hemoglobin Oxyhemoglobin Sodium Potassium Chloride Carbon Dioxide BUN Creatinine Glucose POC Glucose 133 H 146 H 141 H Lactic Acid Calcium Ionized Calcium Phosphorus Magnesium Direct Bilirubin AST ALT Alkaline Phosphatase Lactate Dehydrogenase Troponin T C-Reactive Protein Total Protein Albumin Prealbumin Triglycerides Cholesterol LDL Cholesterol Direct HDL Cholesterol 25-OH Vitamin D Total PTH Intact Urine pH Urine WBC (Auto) Urine Creatinine Urine Total Protein Fluid Total Protein Vancomycin Trough Rheumatoid Factor Complement C4 Miscellaneous Test Crossmatch 11/30/16 11/30/16 11/30/16 04:17 04:17 04:32 WBC 12.0 H RBC 2.80 L Hgb 7.8 L Hct 23.6 L MCV MCH MCHC RDW 16.6 H Plt Count Lymph % (Auto) [place] % (Auto) 11.3 H Lymph # [place] # 1.4 H Baso # Seg Neutrophils % Seg Neuts % (Manual) Lymphocytes % (Manual) Monocytes % (Manual) Eosinophils % (Manual) Basophils % (Manual) Nucleated RBC % Seg Neutrophils # 8.2 H Seg Neutrophils # Man Lymphocytes # (Manual) Monocytes # (Manual) Eosinophils # (Manual) Basophils # (Manual) PT INR Fibrinogen dRVVT Confirm Interp Factor V Activity POC ABG pH POC ABG pCO2 POC ABG pO2 ABG pO2 ABG HCO3 ABG Base Excess ABG Hemoglobin Oxyhemoglobin Sodium 169 H* D Potassium 5.1 H Chloride 121.5 H Carbon Dioxide BUN 34 H Creatinine 1.3 H D Glucose 133 H POC Glucose 131 H Lactic Acid Calcium 10.3 H Ionized Calcium Phosphorus Magnesium Direct Bilirubin AST ALT Alkaline Phosphatase Lactate Dehydrogenase Troponin T C-Reactive Protein Total Protein Albumin Prealbumin Triglycerides Cholesterol LDL Cholesterol Direct HDL Cholesterol 25-OH Vitamin D Total PTH Intact Urine pH Urine WBC (Auto) Urine Creatinine Urine Total Protein Fluid Total Protein Vancomycin Trough Rheumatoid Factor Complement C4 Miscellaneous Test Crossmatch 11/30/16 11/30/16 11/30/16 05:45 11:10 17:26 WBC RBC Hgb Hct MCV MCH MCHC RDW Plt Count Lymph % (Auto) [place] % (Auto) Lymph # [place] # Baso # Seg Neutrophils % Seg Neuts % (Manual) Lymphocytes % (Manual) Monocytes % (Manual) Eosinophils % (Manual) Basophils % (Manual) Nucleated RBC % Seg Neutrophils # Seg Neutrophils # Man Lymphocytes # (Manual) Monocytes # (Manual) Eosinophils # (Manual) Basophils # (Manual) PT INR Fibrinogen dRVVT Confirm Interp Factor V Activity POC ABG pH POC ABG pCO2 POC ABG pO2 ABG pO2 ABG HCO3 ABG Base Excess ABG Hemoglobin Oxyhemoglobin Sodium Potassium Chloride Carbon Dioxide BUN 45 H Creatinine 1.6 H Glucose 131 H POC Glucose 146 H 134 H Lactic Acid Calcium Ionized Calcium Phosphorus Magnesium Direct Bilirubin AST ALT Alkaline Phosphatase Lactate Dehydrogenase Troponin T C-Reactive Protein Total Protein Albumin Prealbumin Triglycerides Cholesterol LDL Cholesterol Direct HDL Cholesterol 25-OH Vitamin D Total PTH Intact Urine pH Urine WBC (Auto) Urine Creatinine Urine Total Protein Fluid Total Protein Vancomycin Trough Rheumatoid Factor Complement C4 Miscellaneous Test Crossmatch 11/30/16 12/01/16 12/01/16 23:35 00:06 03:35 WBC RBC Hgb Hct MCV MCH MCHC RDW Plt Count Lymph % (Auto) [place] % (Auto) Lymph # [place] # Baso # Seg Neutrophils % Seg Neuts % (Manual) Lymphocytes % (Manual) Monocytes % (Manual) Eosinophils % (Manual) Basophils % (Manual) Nucleated RBC % Seg Neutrophils # Seg Neutrophils # Man Lymphocytes # (Manual) Monocytes # (Manual) Eosinophils # (Manual) Basophils # (Manual) PT INR Fibrinogen dRVVT Confirm Interp Factor V Activity POC ABG pH POC ABG pCO2 POC ABG pO2 ABG pO2 ABG HCO3 ABG Base Excess ABG Hemoglobin 6.9 L Oxyhemoglobin Sodium Potassium Chloride Carbon Dioxide BUN 58 H Creatinine 1.8 H Glucose 146 H POC Glucose 151 H Lactic Acid Calcium Ionized Calcium Phosphorus Magnesium Direct Bilirubin AST ALT Alkaline Phosphatase Lactate Dehydrogenase Troponin T C-Reactive Protein Total Protein Albumin Prealbumin Triglycerides Cholesterol LDL Cholesterol Direct HDL Cholesterol 25-OH Vitamin D Total PTH Intact Urine pH Urine WBC (Auto) Urine Creatinine Urine Total Protein Fluid Total Protein Vancomycin Trough Rheumatoid Factor Complement C4 Miscellaneous Test Crossmatch 12/01/16 12/01/16 12/01/16 03:35 05:47 11:52 WBC 12.3 H RBC 2.82 L Hgb 7.8 L Hct 23.7 L MCV MCH MCHC RDW 16.7 H Plt Count Lymph % (Auto) [place] % (Auto) 9.8 H Lymph # [place] # 1.2 H Baso # Seg Neutrophils % Seg Neuts % (Manual) Lymphocytes % (Manual) Monocytes % (Manual) Eosinophils % (Manual) Basophils % (Manual) Nucleated RBC % Seg Neutrophils # 8.4 H Seg Neutrophils # Man Lymphocytes # (Manual) Monocytes # (Manual) Eosinophils # (Manual) Basophils # (Manual) PT INR Fibrinogen dRVVT Confirm Interp Factor V Activity POC ABG pH POC ABG pCO2 POC ABG pO2 ABG pO2 ABG HCO3 ABG Base Excess ABG Hemoglobin Oxyhemoglobin Sodium Potassium Chloride Carbon Dioxide BUN Creatinine Glucose POC Glucose 152 H 152 H Lactic Acid Calcium Ionized Calcium Phosphorus Magnesium Direct Bilirubin AST ALT Alkaline Phosphatase Lactate Dehydrogenase Troponin T C-Reactive Protein Total Protein Albumin Prealbumin Triglycerides Cholesterol LDL Cholesterol Direct HDL Cholesterol 25-OH Vitamin D Total PTH Intact Urine pH Urine WBC (Auto) Urine Creatinine Urine Total Protein Fluid Total Protein Vancomycin Trough Rheumatoid Factor Complement C4 Miscellaneous Test Crossmatch 12/01/16 12/01/16 12/02/16 17:40 23:41 05:00 WBC RBC Hgb Hct MCV MCH MCHC RDW Plt Count Lymph % (Auto) [place] % (Auto) Lymph # [place] # Baso # Seg Neutrophils % Seg Neuts % (Manual) Lymphocytes % (Manual) Monocytes % (Manual) Eosinophils % (Manual) Basophils % (Manual) Nucleated RBC % Seg Neutrophils # Seg Neutrophils # Man Lymphocytes # (Manual) Monocytes # (Manual) Eosinophils # (Manual) Basophils # (Manual) PT INR Fibrinogen dRVVT Confirm Interp Factor V Activity POC ABG pH POC ABG pCO2 POC ABG pO2 ABG pO2 ABG HCO3 ABG Base Excess ABG Hemoglobin Oxyhemoglobin Sodium Potassium Chloride Carbon Dioxide BUN 45 H Creatinine Glucose 115 H POC Glucose 140 H 144 H Lactic Acid Calcium Ionized Calcium Phosphorus Magnesium Direct Bilirubin AST ALT Alkaline Phosphatase Lactate Dehydrogenase Troponin T C-Reactive Protein Total Protein Albumin Prealbumin Triglycerides Cholesterol LDL Cholesterol Direct HDL Cholesterol 25-OH Vitamin D Total PTH Intact Urine pH Urine WBC (Auto) Urine Creatinine Urine Total Protein Fluid Total Protein Vancomycin Trough Rheumatoid Factor Complement C4 Miscellaneous Test Crossmatch 12/02/16 12/02/16 12/02/16 05:31 11:20 17:38 WBC RBC Hgb Hct MCV MCH MCHC RDW Plt Count Lymph % (Auto) [place] % (Auto) Lymph # [place] # Baso # Seg Neutrophils % Seg Neuts % (Manual) Lymphocytes % (Manual) Monocytes % (Manual) Eosinophils % (Manual) Basophils % (Manual) Nucleated RBC % Seg Neutrophils # Seg Neutrophils # Man Lymphocytes # (Manual) Monocytes # (Manual) Eosinophils # (Manual) Basophils # (Manual) PT INR Fibrinogen dRVVT Confirm Interp Factor V Activity POC ABG pH POC ABG pCO2 POC ABG pO2 ABG pO2 ABG HCO3 ABG Base Excess ABG Hemoglobin Oxyhemoglobin Sodium Potassium Chloride Carbon Dioxide BUN Creatinine Glucose POC Glucose 136 H 177 H 139 H Lactic Acid Calcium Ionized Calcium Phosphorus Magnesium Direct Bilirubin AST ALT Alkaline Phosphatase Lactate Dehydrogenase Troponin T C-Reactive Protein Total Protein Albumin Prealbumin Triglycerides Cholesterol LDL Cholesterol Direct HDL Cholesterol 25-OH Vitamin D Total PTH Intact Urine pH Urine WBC (Auto) Urine Creatinine Urine Total Protein Fluid Total Protein Vancomycin Trough Rheumatoid Factor Complement C4 Miscellaneous Test Crossmatch 12/02/16 12/03/16 12/03/16 23:43 04:00 04:00 WBC 20.4 H RBC 2.74 L Hgb 7.4 L Hct 23.6 L MCV MCH 27 L MCHC RDW 17.1 H Plt Count Lymph % (Auto) [place] % (Auto) Lymph # [place] # Baso # Seg Neutrophils % Seg Neuts % (Manual) 31.0 L Lymphocytes % (Manual) Monocytes % (Manual) Eosinophils % (Manual) Basophils % (Manual) Nucleated RBC % Seg Neutrophils # Seg Neutrophils # Man Lymphocytes # (Manual) Monocytes # (Manual) Eosinophils # (Manual) Basophils # (Manual) PT INR Fibrinogen dRVVT Confirm Interp Factor V Activity POC ABG pH POC ABG pCO2 POC ABG pO2 ABG pO2 ABG HCO3 ABG Base Excess ABG Hemoglobin Oxyhemoglobin Sodium Potassium Chloride Carbon Dioxide BUN 61 H Creatinine 1.6 H Glucose 119 H POC Glucose 158 H Lactic Acid Calcium Ionized Calcium Phosphorus Magnesium Direct Bilirubin AST ALT Alkaline Phosphatase Lactate Dehydrogenase Troponin T C-Reactive Protein Total Protein Albumin Prealbumin Triglycerides Cholesterol LDL Cholesterol Direct HDL Cholesterol 25-OH Vitamin D Total PTH Intact Urine pH Urine WBC (Auto) Urine Creatinine Urine Total Protein Fluid Total Protein Vancomycin Trough Rheumatoid Factor Complement C4 Miscellaneous Test Crossmatch 12/03/16 12/03/16 12/03/16 05:02 12:11 18:16 WBC RBC Hgb Hct MCV MCH MCHC RDW Plt Count Lymph % (Auto) [place] % (Auto) Lymph # [place] # Baso # Seg Neutrophils % Seg Neuts % (Manual) Lymphocytes % (Manual) Monocytes % (Manual) Eosinophils % (Manual) Basophils % (Manual) Nucleated RBC % Seg Neutrophils # Seg Neutrophils # Man Lymphocytes # (Manual) Monocytes # (Manual) Eosinophils # (Manual) Basophils # (Manual) PT INR Fibrinogen dRVVT Confirm Interp Factor V Activity POC ABG pH POC ABG pCO2 POC ABG pO2 ABG pO2 ABG HCO3 ABG Base Excess ABG Hemoglobin Oxyhemoglobin Sodium Potassium Chloride Carbon Dioxide BUN Creatinine Glucose POC Glucose 146 H 157 H 124 H Lactic Acid Calcium Ionized Calcium Phosphorus Magnesium Direct Bilirubin AST ALT Alkaline Phosphatase Lactate Dehydrogenase Troponin T C-Reactive Protein Total Protein Albumin Prealbumin Triglycerides Cholesterol LDL Cholesterol Direct HDL Cholesterol 25-OH Vitamin D Total PTH Intact Urine pH Urine WBC (Auto) Urine Creatinine Urine Total Protein Fluid Total Protein Vancomycin Trough Rheumatoid Factor Complement C4 Miscellaneous Test Crossmatch 12/03/16 12/04/16 12/04/16 23:41 04:00 04:45 WBC RBC Hgb Hct MCV MCH MCHC RDW Plt Count Lymph % (Auto) [place] % (Auto) Lymph # [place] # Baso # Seg Neutrophils % Seg Neuts % (Manual) Lymphocytes % (Manual) Monocytes % (Manual) Eosinophils % (Manual) Basophils % (Manual) Nucleated RBC % Seg Neutrophils # Seg Neutrophils # Man Lymphocytes # (Manual) Monocytes # (Manual) Eosinophils # (Manual) Basophils # (Manual) PT INR Fibrinogen dRVVT Confirm Interp Factor V Activity POC ABG pH POC ABG pCO2 POC ABG pO2 ABG pO2 ABG HCO3 ABG Base Excess ABG Hemoglobin Oxyhemoglobin Sodium Potassium Chloride Carbon Dioxide BUN 76 H Creatinine 1.6 H Glucose POC Glucose 130 H 136 H Lactic Acid Calcium Ionized Calcium Phosphorus Magnesium Direct Bilirubin AST ALT Alkaline Phosphatase 155 H Lactate Dehydrogenase Troponin T C-Reactive Protein Total Protein 5.5 L Albumin 1.5 L Prealbumin Triglycerides Cholesterol LDL Cholesterol Direct HDL Cholesterol 25-OH Vitamin D Total PTH Intact Urine pH Urine WBC (Auto) Urine Creatinine Urine Total Protein Fluid Total Protein Vancomycin Trough Rheumatoid Factor Complement C4 Miscellaneous Test Crossmatch 12/04/16 12/04/16 12/05/16 12:08 17:23 00:10 WBC RBC Hgb Hct MCV MCH MCHC RDW Plt Count Lymph % (Auto) [place] % (Auto) Lymph # [place] # Baso # Seg Neutrophils % Seg Neuts % (Manual) Lymphocytes % (Manual) Monocytes % (Manual) Eosinophils % (Manual) Basophils % (Manual) Nucleated RBC % Seg Neutrophils # Seg Neutrophils # Man Lymphocytes # (Manual) Monocytes # (Manual) Eosinophils # (Manual) Basophils # (Manual) PT INR Fibrinogen dRVVT Confirm Interp Factor V Activity POC ABG pH POC ABG pCO2 POC ABG pO2 ABG pO2 ABG HCO3 ABG Base Excess ABG Hemoglobin Oxyhemoglobin Sodium Potassium Chloride Carbon Dioxide BUN Creatinine Glucose POC Glucose 114 H 129 H 124 H Lactic Acid Calcium Ionized Calcium Phosphorus Magnesium Direct Bilirubin AST ALT Alkaline Phosphatase Lactate Dehydrogenase Troponin T C-Reactive Protein Total Protein Albumin Prealbumin Triglycerides Cholesterol LDL Cholesterol Direct HDL Cholesterol 25-OH Vitamin D Total PTH Intact Urine pH Urine WBC (Auto) Urine Creatinine Urine Total Protein Fluid Total Protein Vancomycin Trough Rheumatoid Factor Complement C4 Miscellaneous Test Crossmatch 12/05/16 12/05/16 12/05/16 05:00 05:00 05:18 WBC RBC Hgb Hct MCV MCH MCHC RDW Plt Count Lymph % (Auto) [place] % (Auto) Lymph # [place] # Baso # Seg Neutrophils % Seg Neuts % (Manual) Lymphocytes % (Manual) Monocytes % (Manual) Eosinophils % (Manual) Basophils % (Manual) Nucleated RBC % Seg Neutrophils # Seg Neutrophils # Man Lymphocytes # (Manual) Monocytes # (Manual) Eosinophils # (Manual) Basophils # (Manual) PT INR Fibrinogen dRVVT Confirm Interp Factor V Activity POC ABG pH POC ABG pCO2 POC ABG pO2 ABG pO2 ABG HCO3 ABG Base Excess ABG Hemoglobin Oxyhemoglobin Sodium Potassium Chloride Carbon Dioxide 21 L BUN 85 H Creatinine 1.9 H Glucose 131 H POC Glucose 154 H Lactic Acid Calcium Ionized Calcium Phosphorus Magnesium Direct Bilirubin AST ALT Alkaline Phosphatase Lactate Dehydrogenase Troponin T C-Reactive Protein 19.30 H Total Protein Albumin Prealbumin Triglycerides Cholesterol LDL Cholesterol Direct HDL Cholesterol 25-OH Vitamin D Total PTH Intact Urine pH Urine WBC (Auto) Urine Creatinine Urine Total Protein Fluid Total Protein Vancomycin Trough Rheumatoid Factor Complement C4 Miscellaneous Test Crossmatch 12/05/16 12/05/16 12/05/16 11:43 17:46 23:25 WBC RBC Hgb Hct MCV MCH MCHC RDW Plt Count Lymph % (Auto) [place] % (Auto) Lymph # [place] # Baso # Seg Neutrophils % Seg Neuts % (Manual) Lymphocytes % (Manual) Monocytes % (Manual) Eosinophils % (Manual) Basophils % (Manual) Nucleated RBC % Seg Neutrophils # Seg Neutrophils # Man Lymphocytes # (Manual) Monocytes # (Manual) Eosinophils # (Manual) Basophils # (Manual) PT INR Fibrinogen dRVVT Confirm Interp Factor V Activity POC ABG pH POC ABG pCO2 POC ABG pO2 ABG pO2 ABG HCO3 ABG Base Excess ABG Hemoglobin Oxyhemoglobin Sodium Potassium Chloride Carbon Dioxide BUN Creatinine Glucose POC Glucose 117 H 113 H 111 H Lactic Acid Calcium Ionized Calcium Phosphorus Magnesium Direct Bilirubin AST ALT Alkaline Phosphatase Lactate Dehydrogenase Troponin T C-Reactive Protein Total Protein Albumin Prealbumin Triglycerides Cholesterol LDL Cholesterol Direct HDL Cholesterol 25-OH Vitamin D Total PTH Intact Urine pH Urine WBC (Auto) Urine Creatinine Urine Total Protein Fluid Total Protein Vancomycin Trough Rheumatoid Factor Complement C4 Miscellaneous Test Crossmatch 12/05/16 12/06/16 12/06/16 Unknown 04:58 06:00 WBC RBC Hgb Hct MCV MCH MCHC RDW Plt Count Lymph % (Auto) [place] % (Auto) Lymph # [place] # Baso # Seg Neutrophils % Seg Neuts % (Manual) Lymphocytes % (Manual) Monocytes % (Manual) Eosinophils % (Manual) Basophils % (Manual) Nucleated RBC % Seg Neutrophils # Seg Neutrophils # Man Lymphocytes # (Manual) Monocytes # (Manual) Eosinophils # (Manual) Basophils # (Manual) PT INR Fibrinogen dRVVT Confirm Interp Factor V Activity POC ABG pH POC ABG pCO2 POC ABG pO2 ABG pO2 75.2 L ABG HCO3 ABG Base Excess -3.4 L ABG Hemoglobin 7.4 L Oxyhemoglobin 94.5 L Sodium Potassium Chloride Carbon Dioxide 20 L BUN 99 H Creatinine 2.1 H Glucose 126 H POC Glucose 145 H Lactic Acid Calcium Ionized Calcium Phosphorus 4.80 H Magnesium Direct Bilirubin AST ALT Alkaline Phosphatase Lactate Dehydrogenase Troponin T C-Reactive Protein Total Protein Albumin Prealbumin Triglycerides Cholesterol LDL Cholesterol Direct HDL Cholesterol 25-OH Vitamin D Total PTH Intact Urine pH Urine WBC (Auto) Urine Creatinine Urine Total Protein Fluid Total Protein Vancomycin Trough Rheumatoid Factor Complement C4 Miscellaneous Test Crossmatch 12/06/16 12/06/16 12/06/16 06:46 11:54 17:55 WBC RBC Hgb 8.3 L Hct 26.4 L MCV MCH MCHC RDW Plt Count Lymph % (Auto) [place] % (Auto) Lymph # [place] # Baso # Seg Neutrophils % Seg Neuts % (Manual) Lymphocytes % (Manual) Monocytes % (Manual) Eosinophils % (Manual) Basophils % (Manual) Nucleated RBC % Seg Neutrophils # Seg Neutrophils # Man Lymphocytes # (Manual) Monocytes # (Manual) Eosinophils # (Manual) Basophils # (Manual) PT INR Fibrinogen dRVVT Confirm Interp Factor V Activity POC ABG pH POC ABG pCO2 POC ABG pO2 ABG pO2 ABG HCO3 ABG Base Excess ABG Hemoglobin Oxyhemoglobin Sodium Potassium Chloride Carbon Dioxide BUN Creatinine Glucose POC Glucose 126 H 157 H Lactic Acid Calcium Ionized Calcium Phosphorus Magnesium Direct Bilirubin AST ALT Alkaline Phosphatase Lactate Dehydrogenase Troponin T C-Reactive Protein Total Protein Albumin Prealbumin Triglycerides Cholesterol LDL Cholesterol Direct HDL Cholesterol 25-OH Vitamin D Total PTH Intact Urine pH Urine WBC (Auto) Urine Creatinine Urine Total Protein Fluid Total Protein Vancomycin Trough Rheumatoid Factor Complement C4 Miscellaneous Test Crossmatch 12/06/16 12/07/16 12/07/16 23:59 05:34 06:30 WBC RBC Hgb Hct MCV MCH MCHC RDW Plt Count Lymph % (Auto) [place] % (Auto) Lymph # [place] # Baso # Seg Neutrophils % Seg Neuts % (Manual) Lymphocytes % (Manual) Monocytes % (Manual) Eosinophils % (Manual) Basophils % (Manual) Nucleated RBC % Seg Neutrophils # Seg Neutrophils # Man Lymphocytes # (Manual) Monocytes # (Manual) Eosinophils # (Manual) Basophils # (Manual) PT INR Fibrinogen dRVVT Confirm Interp Factor V Activity POC ABG pH POC ABG pCO2 POC ABG pO2 ABG pO2 ABG HCO3 ABG Base Excess ABG Hemoglobin Oxyhemoglobin Sodium Potassium Chloride Carbon Dioxide BUN 67 H Creatinine 1.4 H Glucose 126 H POC Glucose 129 H 129 H Lactic Acid Calcium Ionized Calcium Phosphorus Magnesium Direct Bilirubin AST ALT Alkaline Phosphatase Lactate Dehydrogenase Troponin T C-Reactive Protein Total Protein Albumin Prealbumin Triglycerides Cholesterol LDL Cholesterol Direct HDL Cholesterol 25-OH Vitamin D Total PTH Intact Urine pH Urine WBC (Auto) Urine Creatinine Urine Total Protein Fluid Total Protein Vancomycin Trough Rheumatoid Factor Complement C4 Miscellaneous Test Crossmatch 12/07/16 12/07/16 12/07/16 06:30 08:00 09:45 WBC 18.8 H RBC 2.52 L Hgb 6.9 L 6.8 L Hct 21.2 L 21.1 L MCV MCH 27 L MCHC RDW 18.0 H Plt Count Lymph % (Auto) [place] % (Auto) 9.9 H Lymph # [place] # 1.9 H Baso # Seg Neutrophils % 71.8 H Seg Neuts % (Manual) Lymphocytes % (Manual) Monocytes % (Manual) Eosinophils % (Manual) Basophils % (Manual) Nucleated RBC % Seg Neutrophils # 13.5 H Seg Neutrophils # Man Lymphocytes # (Manual) Monocytes # (Manual) Eosinophils # (Manual) Basophils # (Manual) PT INR Fibrinogen dRVVT Confirm Interp Factor V Activity POC ABG pH POC ABG pCO2 POC ABG pO2 ABG pO2 ABG HCO3 ABG Base Excess ABG Hemoglobin Oxyhemoglobin Sodium Potassium Chloride Carbon Dioxide BUN Creatinine Glucose POC Glucose Lactic Acid Calcium Ionized Calcium Phosphorus Magnesium Direct Bilirubin AST ALT Alkaline Phosphatase Lactate Dehydrogenase Troponin T C-Reactive Protein Total Protein Albumin Prealbumin Triglycerides Cholesterol LDL Cholesterol Direct HDL Cholesterol 25-OH Vitamin D Total PTH Intact Urine pH Urine WBC (Auto) Urine Creatinine Urine Total Protein Fluid Total Protein Vancomycin Trough Rheumatoid Factor Complement C4 Miscellaneous Test Crossmatch See Detail 12/07/16 12/07/16 12/07/16 11:44 18:19 23:59 WBC RBC Hgb Hct MCV MCH MCHC RDW Plt Count Lymph % (Auto) [place] % (Auto) Lymph # [place] # Baso # Seg Neutrophils % Seg Neuts % (Manual) Lymphocytes % (Manual) Monocytes % (Manual) Eosinophils % (Manual) Basophils % (Manual) Nucleated RBC % Seg Neutrophils # Seg Neutrophils # Man Lymphocytes # (Manual) Monocytes # (Manual) Eosinophils # (Manual) Basophils # (Manual) PT INR Fibrinogen dRVVT Confirm Interp Factor V Activity POC ABG pH POC ABG pCO2 POC ABG pO2 ABG pO2 ABG HCO3 ABG Base Excess ABG Hemoglobin Oxyhemoglobin Sodium Potassium Chloride Carbon Dioxide BUN Creatinine Glucose POC Glucose 137 H 138 H 133 H Lactic Acid Calcium Ionized Calcium Phosphorus Magnesium Direct Bilirubin AST ALT Alkaline Phosphatase Lactate Dehydrogenase Troponin T C-Reactive Protein Total Protein Albumin Prealbumin Triglycerides Cholesterol LDL Cholesterol Direct HDL Cholesterol 25-OH Vitamin D Total PTH Intact Urine pH Urine WBC (Auto) Urine Creatinine Urine Total Protein Fluid Total Protein Vancomycin Trough Rheumatoid Factor Complement C4 Miscellaneous Test Crossmatch 12/08/16 12/08/16 12/08/16 05:25 05:30 05:30 WBC 23.8 H RBC 2.88 L Hgb 8.1 L Hct 24.3 L MCV MCH MCHC RDW 16.7 H Plt Count Lymph % (Auto) [place] % (Auto) Lymph # [place] # Baso # Seg Neutrophils % Seg Neuts % (Manual) 76.0 H Lymphocytes % (Manual) 9.0 L Monocytes % (Manual) 9.0 H Eosinophils % (Manual) Basophils % (Manual) Nucleated RBC % Seg Neutrophils # Seg Neutrophils # Man 18.1 H Lymphocytes # (Manual) Monocytes # (Manual) 2.1 H Eosinophils # (Manual) Basophils # (Manual) PT INR Fibrinogen dRVVT Confirm Interp Factor V Activity POC ABG pH POC ABG pCO2 POC ABG pO2 ABG pO2 ABG HCO3 ABG Base Excess ABG Hemoglobin Oxyhemoglobin Sodium Potassium Chloride Carbon Dioxide 21 L BUN 76 H Creatinine 1.6 H Glucose 133 H POC Glucose 177 H Lactic Acid Calcium Ionized Calcium Phosphorus Magnesium Direct Bilirubin AST ALT Alkaline Phosphatase Lactate Dehydrogenase Troponin T C-Reactive Protein Total Protein Albumin Prealbumin Triglycerides Cholesterol LDL Cholesterol Direct HDL Cholesterol 25-OH Vitamin D Total PTH Intact Urine pH Urine WBC (Auto) Urine Creatinine Urine Total Protein Fluid Total Protein Vancomycin Trough Rheumatoid Factor Complement C4 Miscellaneous Test Crossmatch 12/08/16 12/08/16 12/09/16 11:45 18:00 00:00 WBC RBC Hgb Hct MCV MCH MCHC RDW Plt Count Lymph % (Auto) [place] % (Auto) Lymph # [place] # Baso # Seg Neutrophils % Seg Neuts % (Manual) Lymphocytes % (Manual) Monocytes % (Manual) Eosinophils % (Manual) Basophils % (Manual) Nucleated RBC % Seg Neutrophils # Seg Neutrophils # Man Lymphocytes # (Manual) Monocytes # (Manual) Eosinophils # (Manual) Basophils # (Manual) PT INR Fibrinogen dRVVT Confirm Interp Factor V Activity POC ABG pH POC ABG pCO2 POC ABG pO2 ABG pO2 ABG HCO3 ABG Base Excess ABG Hemoglobin Oxyhemoglobin Sodium Potassium Chloride Carbon Dioxide BUN Creatinine Glucose POC Glucose 163 H 123 H 137 H Lactic Acid Calcium Ionized Calcium Phosphorus Magnesium Direct Bilirubin AST ALT Alkaline Phosphatase Lactate Dehydrogenase Troponin T C-Reactive Protein Total Protein Albumin Prealbumin Triglycerides Cholesterol LDL Cholesterol Direct HDL Cholesterol 25-OH Vitamin D Total PTH Intact Urine pH Urine WBC (Auto) Urine Creatinine Urine Total Protein Fluid Total Protein Vancomycin Trough Rheumatoid Factor Complement C4 Miscellaneous Test Crossmatch 12/09/16 12/09/16 12/09/16 05:34 06:00 06:00 WBC 15.5 H RBC 2.87 L Hgb 8.0 L Hct 24.2 L MCV MCH MCHC RDW 17.2 H Plt Count Lymph % (Auto) [place] % (Auto) 11.6 H Lymph # [place] # 1.8 H Baso # Seg Neutrophils % 70.8 H Seg Neuts % (Manual) Lymphocytes % (Manual) Monocytes % (Manual) Eosinophils % (Manual) Basophils % (Manual) Nucleated RBC % Seg Neutrophils # 11.0 H Seg Neutrophils # Man Lymphocytes # (Manual) Monocytes # (Manual) Eosinophils # (Manual) Basophils # (Manual) PT INR Fibrinogen dRVVT Confirm Interp Factor V Activity POC ABG pH POC ABG pCO2 POC ABG pO2 ABG pO2 ABG HCO3 ABG Base Excess ABG Hemoglobin Oxyhemoglobin Sodium Potassium Chloride Carbon Dioxide BUN 51 H Creatinine Glucose 117 H POC Glucose 136 H Lactic Acid Calcium Ionized Calcium Phosphorus Magnesium Direct Bilirubin AST ALT Alkaline Phosphatase Lactate Dehydrogenase Troponin T C-Reactive Protein Total Protein Albumin Prealbumin Triglycerides Cholesterol LDL Cholesterol Direct HDL Cholesterol 25-OH Vitamin D Total PTH Intact Urine pH Urine WBC (Auto) Urine Creatinine Urine Total Protein Fluid Total Protein Vancomycin Trough Rheumatoid Factor Complement C4 Miscellaneous Test Crossmatch 10/12/09/16 12/09/16 12:29 17:52 23:10 WBC RBC Hgb Hct MCV MCH MCHC RDW Plt Count Lymph % (Auto) [place] % (Auto) Lymph # [place] # Baso # Seg Neutrophils % Seg Neuts % (Manual) Lymphocytes % (Manual) Monocytes % (Manual) Eosinophils % (Manual) Basophils % (Manual) Nucleated RBC % Seg Neutrophils # Seg Neutrophils # Man Lymphocytes # (Manual) Monocytes # (Manual) Eosinophils # (Manual) Basophils # (Manual) PT INR Fibrinogen dRVVT Confirm Interp Factor V Activity POC ABG pH POC ABG pCO2 POC ABG pO2 ABG pO2 ABG HCO3 ABG Base Excess ABG Hemoglobin Oxyhemoglobin Sodium Potassium Chloride Carbon Dioxide BUN Creatinine Glucose POC Glucose 139 H 140 H 129 H Lactic Acid Calcium Ionized Calcium Phosphorus Magnesium Direct Bilirubin AST ALT Alkaline Phosphatase Lactate Dehydrogenase Troponin T C-Reactive Protein Total Protein Albumin Prealbumin Triglycerides Cholesterol LDL Cholesterol Direct HDL Cholesterol 25-OH Vitamin D Total PTH Intact Urine pH Urine WBC (Auto) Urine Creatinine Urine Total Protein Fluid Total Protein Vancomycin Trough Rheumatoid Factor Complement C4 Miscellaneous Test Crossmatch 12/10/16 12/10/16 12/10/16 05:00 05:00 06:54 WBC 15.7 H RBC 2.87 L Hgb 8.2 L Hct 24.4 L MCV MCH MCHC RDW 17.2 H Plt Count Lymph % (Auto) [place] % (Auto) 8.3 H Lymph # [place] # 1.3 H Baso # Seg Neutrophils % 72.8 H Seg Neuts % (Manual) Lymphocytes % (Manual) Monocytes % (Manual) Eosinophils % (Manual) Basophils % (Manual) Nucleated RBC % Seg Neutrophils # 11.4 H Seg Neutrophils # Man Lymphocytes # (Manual) Monocytes # (Manual) Eosinophils # (Manual) Basophils # (Manual) PT INR Fibrinogen dRVVT Confirm Interp Factor V Activity POC ABG pH POC ABG pCO2 POC ABG pO2 ABG pO2 ABG HCO3 ABG Base Excess ABG Hemoglobin Oxyhemoglobin Sodium Potassium Chloride Carbon Dioxide BUN 64 H Creatinine 1.4 H Glucose 134 H POC Glucose 154 H Lactic Acid Calcium Ionized Calcium Phosphorus Magnesium Direct Bilirubin AST ALT Alkaline Phosphatase Lactate Dehydrogenase Troponin T C-Reactive Protein Total Protein Albumin Prealbumin Triglycerides Cholesterol LDL Cholesterol Direct HDL Cholesterol 25-OH Vitamin D Total PTH Intact Urine pH Urine WBC (Auto) Urine Creatinine Urine Total Protein Fluid Total Protein Vancomycin Trough Rheumatoid Factor Complement C4 Miscellaneous Test Crossmatch 12/10/16 12/10/16 12/10/16 11:58 17:29 23:52 WBC RBC Hgb Hct MCV MCH MCHC RDW Plt Count Lymph % (Auto) [place] % (Auto) Lymph # [place] # Baso # Seg Neutrophils % Seg Neuts % (Manual) Lymphocytes % (Manual) Monocytes % (Manual) Eosinophils % (Manual) Basophils % (Manual) Nucleated RBC % Seg Neutrophils # Seg Neutrophils # Man Lymphocytes # (Manual) Monocytes # (Manual) Eosinophils # (Manual) Basophils # (Manual) PT INR Fibrinogen dRVVT Confirm Interp Factor V Activity POC ABG pH POC ABG pCO2 POC ABG pO2 ABG pO2 ABG HCO3 ABG Base Excess ABG Hemoglobin Oxyhemoglobin Sodium Potassium Chloride Carbon Dioxide BUN Creatinine Glucose POC Glucose 144 H 163 H 125 H Lactic Acid Calcium Ionized Calcium Phosphorus Magnesium Direct Bilirubin AST ALT Alkaline Phosphatase Lactate Dehydrogenase Troponin T C-Reactive Protein Total Protein Albumin Prealbumin Triglycerides Cholesterol LDL Cholesterol Direct HDL Cholesterol 25-OH Vitamin D Total PTH Intact Urine pH Urine WBC (Auto) Urine Creatinine Urine Total Protein Fluid Total Protein Vancomycin Trough Rheumatoid Factor Complement C4 Miscellaneous Test Crossmatch 12/11/16 12/11/16 12/11/16 05:38 06:30 06:30 WBC 14.4 H RBC 2.76 L Hgb 7.7 L Hct 23.4 L MCV MCH MCHC RDW 17.2 H Plt Count Lymph % (Auto) [place] % (Auto) 8.8 H Lymph # [place] # 1.3 H Baso # Seg Neutrophils % 72.5 H Seg Neuts % (Manual) Lymphocytes % (Manual) Monocytes % (Manual) Eosinophils % (Manual) Basophils % (Manual) Nucleated RBC % Seg Neutrophils # 10.5 H Seg Neutrophils # Man Lymphocytes # (Manual) Monocytes # (Manual) Eosinophils # (Manual) Basophils # (Manual) PT INR Fibrinogen dRVVT Confirm Interp Factor V Activity POC ABG pH POC ABG pCO2 POC ABG pO2 ABG pO2 ABG HCO3 ABG Base Excess ABG Hemoglobin Oxyhemoglobin Sodium Potassium Chloride Carbon Dioxide BUN 43 H Creatinine Glucose 124 H POC Glucose 141 H Lactic Acid Calcium 8.3 L Ionized Calcium Phosphorus Magnesium 1.60 L Direct Bilirubin AST ALT Alkaline Phosphatase Lactate Dehydrogenase Troponin T C-Reactive Protein Total Protein Albumin Prealbumin Triglycerides Cholesterol LDL Cholesterol Direct HDL Cholesterol 25-OH Vitamin D Total PTH Intact Urine pH Urine WBC (Auto) Urine Creatinine Urine Total Protein Fluid Total Protein Vancomycin Trough Rheumatoid Factor Complement C4 Miscellaneous Test Crossmatch 12/11/16 12/11/16 12/11/16 11:15 17:59 23:48 WBC RBC Hgb Hct MCV MCH MCHC RDW Plt Count Lymph % (Auto) [place] % (Auto) Lymph # [place] # Baso # Seg Neutrophils % Seg Neuts % (Manual) Lymphocytes % (Manual) Monocytes % (Manual) Eosinophils % (Manual) Basophils % (Manual) Nucleated RBC % Seg Neutrophils # Seg Neutrophils # Man Lymphocytes # (Manual) Monocytes # (Manual) Eosinophils # (Manual) Basophils # (Manual) PT INR Fibrinogen dRVVT Confirm Interp Factor V Activity POC ABG pH POC ABG pCO2 POC ABG pO2 ABG pO2 ABG HCO3 ABG Base Excess ABG Hemoglobin Oxyhemoglobin Sodium Potassium Chloride Carbon Dioxide BUN Creatinine Glucose POC Glucose 188 H 106 H 119 H Lactic Acid Calcium Ionized Calcium Phosphorus Magnesium Direct Bilirubin AST ALT Alkaline Phosphatase Lactate Dehydrogenase Troponin T C-Reactive Protein Total Protein Albumin Prealbumin Triglycerides Cholesterol LDL Cholesterol Direct HDL Cholesterol 25-OH Vitamin D Total PTH Intact Urine pH Urine WBC (Auto) Urine Creatinine Urine Total Protein Fluid Total Protein Vancomycin Trough Rheumatoid Factor Complement C4 Miscellaneous Test Crossmatch 12/12/16 12/12/16 12/12/16 05:00 06:01 12:20 WBC 16.7 H RBC 2.87 L Hgb 8.0 L Hct 24.2 L MCV MCH MCHC RDW 17.6 H Plt Count Lymph % (Auto) [place] % (Auto) Lymph # [place] # 1.2 H Baso # Seg Neutrophils % 75.3 H Seg Neuts % (Manual) Lymphocytes % (Manual) Monocytes % (Manual) Eosinophils % (Manual) Basophils % (Manual) Nucleated RBC % Seg Neutrophils # 12.6 H Seg Neutrophils # Man Lymphocytes # (Manual) Monocytes # (Manual) Eosinophils # (Manual) Basophils # (Manual) PT INR Fibrinogen dRVVT Confirm Interp Factor V Activity POC ABG pH POC ABG pCO2 POC ABG pO2 ABG pO2 ABG HCO3 ABG Base Excess ABG Hemoglobin Oxyhemoglobin Sodium Potassium Chloride Carbon Dioxide BUN Creatinine Glucose POC Glucose 134 H 149 H Lactic Acid Calcium Ionized Calcium Phosphorus Magnesium Direct Bilirubin AST ALT Alkaline Phosphatase Lactate Dehydrogenase Troponin T C-Reactive Protein Total Protein Albumin Prealbumin Triglycerides Cholesterol LDL Cholesterol Direct HDL Cholesterol 25-OH Vitamin D Total PTH Intact Urine pH Urine WBC (Auto) Urine Creatinine Urine Total Protein Fluid Total Protein Vancomycin Trough Rheumatoid Factor Complement C4 Miscellaneous Test Crossmatch 12/12/16 12/12/16 12/12/16 17:38 23:01 Unknown WBC RBC Hgb Hct MCV MCH MCHC RDW Plt Count Lymph % (Auto) [place] % (Auto) Lymph # [place] # Baso # Seg Neutrophils % Seg Neuts % (Manual) Lymphocytes % (Manual) Monocytes % (Manual) Eosinophils % (Manual) Basophils % (Manual) Nucleated RBC % Seg Neutrophils # Seg Neutrophils # Man Lymphocytes # (Manual) Monocytes # (Manual) Eosinophils # (Manual) Basophils # (Manual) PT INR Fibrinogen dRVVT Confirm Interp Factor V Activity POC ABG pH POC ABG pCO2 POC ABG pO2 ABG pO2 ABG HCO3 ABG Base Excess ABG Hemoglobin Oxyhemoglobin Sodium Potassium Chloride Carbon Dioxide BUN 60 H Creatinine 1.3 H Glucose 126 H POC Glucose 127 H 144 H Lactic Acid Calcium Ionized Calcium Phosphorus Magnesium Direct Bilirubin AST ALT Alkaline Phosphatase Lactate Dehydrogenase Troponin T C-Reactive Protein Total Protein Albumin Prealbumin Triglycerides Cholesterol LDL Cholesterol Direct HDL Cholesterol 25-OH Vitamin D Total PTH Intact Urine pH Urine WBC (Auto) Urine Creatinine Urine Total Protein Fluid Total Protein Vancomycin Trough Rheumatoid Factor Complement C4 Miscellaneous Test Crossmatch 12/13/16 12/13/16 12/13/16 04:00 04:00 05:19 WBC 18.7 H RBC 2.89 L Hgb 8.3 L Hct 24.6 L MCV MCH MCHC RDW 17.5 H Plt Count Lymph % (Auto) [place] % (Auto) Lymph # [place] # 1.3 H Baso # Seg Neutrophils % 71.5 H Seg Neuts % (Manual) Lymphocytes % (Manual) Monocytes % (Manual) Eosinophils % (Manual) Basophils % (Manual) Nucleated RBC % Seg Neutrophils # 13.4 H Seg Neutrophils # Man Lymphocytes # (Manual) Monocytes # (Manual) Eosinophils # (Manual) Basophils # (Manual) PT INR Fibrinogen dRVVT Confirm Interp Factor V Activity POC ABG pH POC ABG pCO2 POC ABG pO2 ABG pO2 ABG HCO3 ABG Base Excess ABG Hemoglobin Oxyhemoglobin Sodium Potassium Chloride Carbon Dioxide BUN 73 H Creatinine 1.5 H Glucose 141 H POC Glucose 171 H Lactic Acid Calcium Ionized Calcium Phosphorus Magnesium Direct Bilirubin AST ALT Alkaline Phosphatase Lactate Dehydrogenase Troponin T C-Reactive Protein Total Protein Albumin Prealbumin Triglycerides Cholesterol LDL Cholesterol Direct HDL Cholesterol 25-OH Vitamin D Total PTH Intact Urine pH Urine WBC (Auto) Urine Creatinine Urine Total Protein Fluid Total Protein Vancomycin Trough Rheumatoid Factor Complement C4 Miscellaneous Test Crossmatch 12/13/16 12/13/16 12/14/16 12:28 16:48 00:01 WBC RBC Hgb Hct MCV MCH MCHC RDW Plt Count Lymph % (Auto) [place] % (Auto) Lymph # [place] # Baso # Seg Neutrophils % Seg Neuts % (Manual) Lymphocytes % (Manual) Monocytes % (Manual) Eosinophils % (Manual) Basophils % (Manual) Nucleated RBC % Seg Neutrophils # Seg Neutrophils # Man Lymphocytes # (Manual) Monocytes # (Manual) Eosinophils # (Manual) Basophils # (Manual) PT INR Fibrinogen dRVVT Confirm Interp Factor V Activity POC ABG pH POC ABG pCO2 POC ABG pO2 ABG pO2 ABG HCO3 ABG Base Excess ABG Hemoglobin Oxyhemoglobin Sodium Potassium Chloride Carbon Dioxide BUN Creatinine Glucose POC Glucose 206 H 173 H 139 H Lactic Acid Calcium Ionized Calcium Phosphorus Magnesium Direct Bilirubin AST ALT Alkaline Phosphatase Lactate Dehydrogenase Troponin T C-Reactive Protein Total Protein Albumin Prealbumin Triglycerides Cholesterol LDL Cholesterol Direct HDL Cholesterol 25-OH Vitamin D Total PTH Intact Urine pH Urine WBC (Auto) Urine Creatinine Urine Total Protein Fluid Total Protein Vancomycin Trough Rheumatoid Factor Complement C4 Miscellaneous Test Crossmatch 12/14/16 12/14/16 12/14/16 05:16 06:10 11:17 WBC RBC Hgb Hct MCV MCH MCHC RDW Plt Count Lymph % (Auto) [place] % (Auto) Lymph # [place] # Baso # Seg Neutrophils % Seg Neuts % (Manual) Lymphocytes % (Manual) Monocytes % (Manual) Eosinophils % (Manual) Basophils % (Manual) Nucleated RBC % Seg Neutrophils # Seg Neutrophils # Man Lymphocytes # (Manual) Monocytes # (Manual) Eosinophils # (Manual) Basophils # (Manual) PT INR Fibrinogen dRVVT Confirm Interp Factor V Activity POC ABG pH POC ABG pCO2 POC ABG pO2 ABG pO2 ABG HCO3 ABG Base Excess ABG Hemoglobin Oxyhemoglobin Sodium Potassium Chloride Carbon Dioxide BUN 57 H Creatinine 1.4 H Glucose 135 H POC Glucose 158 H 137 H Lactic Acid Calcium Ionized Calcium Phosphorus Magnesium Direct Bilirubin AST ALT Alkaline Phosphatase Lactate Dehydrogenase Troponin T C-Reactive Protein Total Protein Albumin Prealbumin Triglycerides Cholesterol LDL Cholesterol Direct HDL Cholesterol 25-OH Vitamin D Total PTH Intact Urine pH Urine WBC (Auto) Urine Creatinine Urine Total Protein Fluid Total Protein Vancomycin Trough Rheumatoid Factor Complement C4 Miscellaneous Test Crossmatch 12/14/16 12/14/16 12/15/16 17:52 23:27 04:00 WBC RBC Hgb Hct MCV MCH MCHC RDW Plt Count Lymph % (Auto) [place] % (Auto) Lymph # [place] # Baso # Seg Neutrophils % Seg Neuts % (Manual) Lymphocytes % (Manual) Monocytes % (Manual) Eosinophils % (Manual) Basophils % (Manual) Nucleated RBC % Seg Neutrophils # Seg Neutrophils # Man Lymphocytes # (Manual) Monocytes # (Manual) Eosinophils # (Manual) Basophils # (Manual) PT INR Fibrinogen dRVVT Confirm Interp Factor V Activity POC ABG pH POC ABG pCO2 POC ABG pO2 ABG pO2 ABG HCO3 ABG Base Excess ABG Hemoglobin Oxyhemoglobin Sodium Potassium Chloride 97.9 L Carbon Dioxide BUN 75 H Creatinine 1.6 H Glucose 122 H POC Glucose 149 H 163 H Lactic Acid Calcium Ionized Calcium Phosphorus 5.20 H Magnesium Direct Bilirubin AST ALT Alkaline Phosphatase Lactate Dehydrogenase Troponin T C-Reactive Protein Total Protein Albumin Prealbumin Triglycerides Cholesterol LDL Cholesterol Direct HDL Cholesterol 25-OH Vitamin D Total PTH Intact Urine pH Urine WBC (Auto) Urine Creatinine Urine Total Protein Fluid Total Protein Vancomycin Trough Rheumatoid Factor Complement C4 Miscellaneous Test Crossmatch 12/15/16 12/15/16 12/15/16 05:50 11:24 17:01 WBC RBC Hgb Hct MCV MCH MCHC RDW Plt Count Lymph % (Auto) [place] % (Auto) Lymph # [place] # Baso # Seg Neutrophils % Seg Neuts % (Manual) Lymphocytes % (Manual) Monocytes % (Manual) Eosinophils % (Manual) Basophils % (Manual) Nucleated RBC % Seg Neutrophils # Seg Neutrophils # Man Lymphocytes # (Manual) Monocytes # (Manual) Eosinophils # (Manual) Basophils # (Manual) PT INR Fibrinogen dRVVT Confirm Interp Factor V Activity POC ABG pH POC ABG pCO2 POC ABG pO2 ABG pO2 ABG HCO3 ABG Base Excess ABG Hemoglobin Oxyhemoglobin Sodium Potassium Chloride Carbon Dioxide BUN Creatinine Glucose POC Glucose 150 H 146 H 167 H Lactic Acid Calcium Ionized Calcium Phosphorus Magnesium Direct Bilirubin AST ALT Alkaline Phosphatase Lactate Dehydrogenase Troponin T C-Reactive Protein Total Protein Albumin Prealbumin Triglycerides Cholesterol LDL Cholesterol Direct HDL Cholesterol 25-OH Vitamin D Total PTH Intact Urine pH Urine WBC (Auto) Urine Creatinine Urine Total Protein Fluid Total Protein Vancomycin Trough Rheumatoid Factor Complement C4 Miscellaneous Test Crossmatch 12/15/16 12/16/16 12/16/16 23:34 05:25 11:24 WBC RBC Hgb Hct MCV MCH MCHC RDW Plt Count Lymph % (Auto) [place] % (Auto) Lymph # [place] # Baso # Seg Neutrophils % Seg Neuts % (Manual) Lymphocytes % (Manual) Monocytes % (Manual) Eosinophils % (Manual) Basophils % (Manual) Nucleated RBC % Seg Neutrophils # Seg Neutrophils # Man Lymphocytes # (Manual) Monocytes # (Manual) Eosinophils # (Manual) Basophils # (Manual) PT INR Fibrinogen dRVVT Confirm Interp Factor V Activity POC ABG pH POC ABG pCO2 POC ABG pO2 ABG pO2 ABG HCO3 ABG Base Excess ABG Hemoglobin Oxyhemoglobin Sodium Potassium Chloride Carbon Dioxide BUN Creatinine Glucose POC Glucose 127 H 139 H 165 H Lactic Acid Calcium Ionized Calcium Phosphorus Magnesium Direct Bilirubin AST ALT Alkaline Phosphatase Lactate Dehydrogenase Troponin T C-Reactive Protein Total Protein Albumin Prealbumin Triglycerides Cholesterol LDL Cholesterol Direct HDL Cholesterol 25-OH Vitamin D Total PTH Intact Urine pH Urine WBC (Auto) Urine Creatinine Urine Total Protein Fluid Total Protein Vancomycin Trough Rheumatoid Factor Complement C4 Miscellaneous Test Crossmatch 12/16/16 12/16/16 12/16/16 15:30 16:25 17:31 WBC 17.8 H RBC 2.38 L Hgb 6.4 L Hct 20.3 L MCV MCH 27 L MCHC RDW 17.4 H Plt Count Lymph % (Auto) [place] % (Auto) Lymph # [place] # Baso # Seg Neutrophils % Seg Neuts % (Manual) Lymphocytes % (Manual) Monocytes % (Manual) 10.0 H Eosinophils % (Manual) Basophils % (Manual) Nucleated RBC % Seg Neutrophils # Seg Neutrophils # Man 8.5 H Lymphocytes # (Manual) Monocytes # (Manual) 1.8 H Eosinophils # (Manual) Basophils # (Manual) PT INR Fibrinogen dRVVT Confirm Interp Factor V Activity POC ABG pH POC ABG pCO2 POC ABG pO2 ABG pO2 ABG HCO3 ABG Base Excess ABG Hemoglobin Oxyhemoglobin Sodium Potassium Chloride Carbon Dioxide BUN Creatinine Glucose POC Glucose 176 H Lactic Acid Calcium Ionized Calcium Phosphorus Magnesium Direct Bilirubin AST ALT Alkaline Phosphatase Lactate Dehydrogenase Troponin T C-Reactive Protein Total Protein Albumin Prealbumin Triglycerides Cholesterol LDL Cholesterol Direct HDL Cholesterol 25-OH Vitamin D Total PTH Intact Urine pH Urine WBC (Auto) Urine Creatinine Urine Total Protein Fluid Total Protein Vancomycin Trough Rheumatoid Factor Complement C4 Miscellaneous Test Crossmatch See Detail 12/17/16 12/17/16 12/17/16 00:14 04:00 05:00 WBC 20.0 H RBC 2.99 L Hgb 8.5 L Hct 25.7 L MCV MCH MCHC RDW 17.2 H Plt Count Lymph % (Auto) [place] % (Auto) Lymph # [place] # Baso # Seg Neutrophils % Seg Neuts % (Manual) Lymphocytes % (Manual) Monocytes % (Manual) Eosinophils % (Manual) Basophils % (Manual) Nucleated RBC % Seg Neutrophils # Seg Neutrophils # Man Lymphocytes # (Manual) Monocytes # (Manual) Eosinophils # (Manual) Basophils # (Manual) PT INR Fibrinogen dRVVT Confirm Interp Factor V Activity POC ABG pH POC ABG pCO2 POC ABG pO2 ABG pO2 ABG HCO3 ABG Base Excess ABG Hemoglobin Oxyhemoglobin Sodium Potassium Chloride 97.7 L Carbon Dioxide BUN 73 H Creatinine 1.7 H Glucose 136 H POC Glucose 148 H Lactic Acid Calcium Ionized Calcium Phosphorus 2.20 L Magnesium 2.70 H Direct Bilirubin AST ALT Alkaline Phosphatase Lactate Dehydrogenase Troponin T C-Reactive Protein Total Protein Albumin Prealbumin Triglycerides Cholesterol LDL Cholesterol Direct HDL Cholesterol 25-OH Vitamin D Total PTH Intact Urine pH Urine WBC (Auto) Urine Creatinine Urine Total Protein Fluid Total Protein Vancomycin Trough Rheumatoid Factor Complement C4 Miscellaneous Test Crossmatch 12/17/16 12/17/16 12/17/16 05:39 12:50 16:32 WBC RBC Hgb Hct MCV MCH MCHC RDW Plt Count Lymph % (Auto) [place] % (Auto) Lymph # [place] # Baso # Seg Neutrophils % Seg Neuts % (Manual) Lymphocytes % (Manual) Monocytes % (Manual) Eosinophils % (Manual) Basophils % (Manual) Nucleated RBC % Seg Neutrophils # Seg Neutrophils # Man Lymphocytes # (Manual) Monocytes # (Manual) Eosinophils # (Manual) Basophils # (Manual) PT INR Fibrinogen dRVVT Confirm Interp Factor V Activity POC ABG pH POC ABG pCO2 POC ABG pO2 ABG pO2 ABG HCO3 ABG Base Excess ABG Hemoglobin Oxyhemoglobin Sodium Potassium Chloride Carbon Dioxide BUN Creatinine Glucose POC Glucose 162 H 146 H 169 H Lactic Acid Calcium Ionized Calcium Phosphorus Magnesium Direct Bilirubin AST ALT Alkaline Phosphatase Lactate Dehydrogenase Troponin T C-Reactive Protein Total Protein Albumin Prealbumin Triglycerides Cholesterol LDL Cholesterol Direct HDL Cholesterol 25-OH Vitamin D Total PTH Intact Urine pH Urine WBC (Auto) Urine Creatinine Urine Total Protein Fluid Total Protein Vancomycin Trough Rheumatoid Factor Complement C4 Miscellaneous Test Crossmatch 12/17/16 12/18/16 12/18/16 23:57 05:00 05:32 WBC RBC Hgb Hct MCV MCH MCHC RDW Plt Count Lymph % (Auto) [place] % (Auto) Lymph # [place] # Baso # Seg Neutrophils % Seg Neuts % (Manual) Lymphocytes % (Manual) Monocytes % (Manual) Eosinophils % (Manual) Basophils % (Manual) Nucleated RBC % Seg Neutrophils # Seg Neutrophils # Man Lymphocytes # (Manual) Monocytes # (Manual) Eosinophils # (Manual) Basophils # (Manual) PT INR Fibrinogen dRVVT Confirm Interp Factor V Activity POC ABG pH POC ABG pCO2 POC ABG pO2 ABG pO2 ABG HCO3 ABG Base Excess ABG Hemoglobin Oxyhemoglobin Sodium Potassium Chloride 97.0 L Carbon Dioxide BUN 63 H Creatinine 1.4 H Glucose 174 H POC Glucose 145 H 201 H Lactic Acid Calcium Ionized Calcium Phosphorus 1.70 L D Magnesium Direct Bilirubin AST ALT Alkaline Phosphatase 257 H Lactate Dehydrogenase Troponin T C-Reactive Protein Total Protein 5.9 L Albumin 1.8 L Prealbumin Triglycerides Cholesterol LDL Cholesterol Direct HDL Cholesterol 25-OH Vitamin D Total PTH Intact Urine pH Urine WBC (Auto) Urine Creatinine Urine Total Protein Fluid Total Protein Vancomycin Trough Rheumatoid Factor Complement C4 Miscellaneous Test Crossmatch 12/18/16 12/18/16 12/18/16 11:43 16:52 23:52 WBC RBC Hgb Hct MCV MCH MCHC RDW Plt Count Lymph % (Auto) [place] % (Auto) Lymph # [place] # Baso # Seg Neutrophils % Seg Neuts % (Manual) Lymphocytes % (Manual) Monocytes % (Manual) Eosinophils % (Manual) Basophils % (Manual) Nucleated RBC % Seg Neutrophils # Seg Neutrophils # Man Lymphocytes # (Manual) Monocytes # (Manual) Eosinophils # (Manual) Basophils # (Manual) PT INR Fibrinogen dRVVT Confirm Interp Factor V Activity POC ABG pH POC ABG pCO2 POC ABG pO2 ABG pO2 ABG HCO3 ABG Base Excess ABG Hemoglobin Oxyhemoglobin Sodium Potassium Chloride Carbon Dioxide BUN Creatinine Glucose POC Glucose 177 H 110 H 162 H Lactic Acid Calcium Ionized Calcium Phosphorus Magnesium Direct Bilirubin AST ALT Alkaline Phosphatase Lactate Dehydrogenase Troponin T C-Reactive Protein Total Protein Albumin Prealbumin Triglycerides Cholesterol LDL Cholesterol Direct HDL Cholesterol 25-OH Vitamin D Total PTH Intact Urine pH Urine WBC (Auto) Urine Creatinine Urine Total Protein Fluid Total Protein Vancomycin Trough Rheumatoid Factor Complement C4 Miscellaneous Test Crossmatch 12/19/16 12/19/16 12/19/16 05:02 05:24 09:30 WBC 20.1 H RBC 2.73 L Hgb 7.6 L Hct 23.6 L MCV MCH MCHC RDW 17.6 H Plt Count Lymph % (Auto) [place] % (Auto) Lymph # [place] # Baso # Seg Neutrophils % Seg Neuts % (Manual) Lymphocytes % (Manual) 13.0 L Monocytes % (Manual) Eosinophils % (Manual) Basophils % (Manual) Nucleated RBC % 1.0 H Seg Neutrophils # Seg Neutrophils # Man 12.9 H Lymphocytes # (Manual) Monocytes # (Manual) 1.4 H Eosinophils # (Manual) Basophils # (Manual) 0.2 H PT INR Fibrinogen dRVVT Confirm Interp Factor V Activity POC ABG pH POC ABG pCO2 POC ABG pO2 ABG pO2 ABG HCO3 ABG Base Excess ABG Hemoglobin Oxyhemoglobin Sodium Potassium Chloride 97.8 L Carbon Dioxide BUN 84 H Creatinine 1.6 H Glucose 133 H POC Glucose 134 H Lactic Acid Calcium Ionized Calcium Phosphorus Magnesium Direct Bilirubin AST ALT Alkaline Phosphatase Lactate Dehydrogenase Troponin T C-Reactive Protein Total Protein Albumin Prealbumin Triglycerides Cholesterol LDL Cholesterol Direct HDL Cholesterol 25-OH Vitamin D Total PTH Intact Urine pH Urine WBC (Auto) Urine Creatinine Urine Total Protein Fluid Total Protein Vancomycin Trough Rheumatoid Factor Complement C4 Miscellaneous Test Crossmatch 12/19/16 12/19/16 12/19/16 09:36 11:12 18:29 WBC RBC Hgb Hct MCV MCH MCHC RDW Plt Count Lymph % (Auto) [place] % (Auto) Lymph # [place] # Baso # Seg Neutrophils % Seg Neuts % (Manual) Lymphocytes % (Manual) Monocytes % (Manual) Eosinophils % (Manual) Basophils % (Manual) Nucleated RBC % Seg Neutrophils # Seg Neutrophils # Man Lymphocytes # (Manual) Monocytes # (Manual) Eosinophils # (Manual) Basophils # (Manual) PT INR Fibrinogen dRVVT Confirm Interp Factor V Activity POC ABG pH 7.503 H POC ABG pCO2 30.1 L POC ABG pO2 ABG pO2 ABG HCO3 ABG Base Excess ABG Hemoglobin Oxyhemoglobin Sodium Potassium Chloride Carbon Dioxide BUN Creatinine Glucose POC Glucose 138 H 156 H Lactic Acid Calcium Ionized Calcium Phosphorus Magnesium Direct Bilirubin AST ALT Alkaline Phosphatase Lactate Dehydrogenase Troponin T C-Reactive Protein Total Protein Albumin Prealbumin Triglycerides Cholesterol LDL Cholesterol Direct HDL Cholesterol 25-OH Vitamin D Total PTH Intact Urine pH Urine WBC (Auto) Urine Creatinine Urine Total Protein Fluid Total Protein Vancomycin Trough Rheumatoid Factor Complement C4 Miscellaneous Test Crossmatch 12/20/16 12/20/16 12/20/16 00:03 06:17 07:07 WBC RBC Hgb Hct MCV MCH MCHC RDW Plt Count Lymph % (Auto) [place] % (Auto) Lymph # [place] # Baso # Seg Neutrophils % Seg Neuts % (Manual) Lymphocytes % (Manual) Monocytes % (Manual) Eosinophils % (Manual) Basophils % (Manual) Nucleated RBC % Seg Neutrophils # Seg Neutrophils # Man Lymphocytes # (Manual) Monocytes # (Manual) Eosinophils # (Manual) Basophils # (Manual) PT INR Fibrinogen dRVVT Confirm Interp Factor V Activity POC ABG pH POC ABG pCO2 POC ABG pO2 ABG pO2 ABG HCO3 ABG Base Excess ABG Hemoglobin Oxyhemoglobin Sodium Potassium Chloride 97.1 L Carbon Dioxide 20 L BUN 97 H Creatinine 1.8 H Glucose 153 H POC Glucose 152 H 175 H Lactic Acid Calcium Ionized Calcium Phosphorus Magnesium Direct Bilirubin AST ALT Alkaline Phosphatase Lactate Dehydrogenase Troponin T C-Reactive Protein Total Protein Albumin Prealbumin Triglycerides Cholesterol LDL Cholesterol Direct HDL Cholesterol 25-OH Vitamin D Total PTH Intact Urine pH Urine WBC (Auto) Urine Creatinine Urine Total Protein Fluid Total Protein Vancomycin Trough Rheumatoid Factor Complement C4 Miscellaneous Test Crossmatch 12/20/16 12/20/16 12/20/16 12:00 17:42 23:53 WBC RBC Hgb Hct MCV MCH MCHC RDW Plt Count Lymph % (Auto) [place] % (Auto) Lymph # [place] # Baso # Seg Neutrophils % Seg Neuts % (Manual) Lymphocytes % (Manual) Monocytes % (Manual) Eosinophils % (Manual) Basophils % (Manual) Nucleated RBC % Seg Neutrophils # Seg Neutrophils # Man Lymphocytes # (Manual) Monocytes # (Manual) Eosinophils # (Manual) Basophils # (Manual) PT INR Fibrinogen dRVVT Confirm Interp Factor V Activity POC ABG pH POC ABG pCO2 POC ABG pO2 ABG pO2 ABG HCO3 ABG Base Excess ABG Hemoglobin Oxyhemoglobin Sodium Potassium Chloride Carbon Dioxide BUN Creatinine Glucose POC Glucose 141 H 156 H 132 H Lactic Acid Calcium Ionized Calcium Phosphorus Magnesium Direct Bilirubin AST ALT Alkaline Phosphatase Lactate Dehydrogenase Troponin T C-Reactive Protein Total Protein Albumin Prealbumin Triglycerides Cholesterol LDL Cholesterol Direct HDL Cholesterol 25-OH Vitamin D Total PTH Intact Urine pH Urine WBC (Auto) Urine Creatinine Urine Total Protein Fluid Total Protein Vancomycin Trough Rheumatoid Factor Complement C4 Miscellaneous Test Crossmatch 12/21/16 12/21/16 12/21/16 05:49 08:50 12:19 WBC RBC Hgb Hct MCV MCH MCHC RDW Plt Count Lymph % (Auto) [place] % (Auto) Lymph # [place] # Baso # Seg Neutrophils % Seg Neuts % (Manual) Lymphocytes % (Manual) Monocytes % (Manual) Eosinophils % (Manual) Basophils % (Manual) Nucleated RBC % Seg Neutrophils # Seg Neutrophils # Man Lymphocytes # (Manual) Monocytes # (Manual) Eosinophils # (Manual) Basophils # (Manual) PT INR Fibrinogen dRVVT Confirm Interp Factor V Activity POC ABG pH POC ABG pCO2 POC ABG pO2 ABG pO2 ABG HCO3 ABG Base Excess ABG Hemoglobin Oxyhemoglobin Sodium Potassium 5.2 H D Chloride Carbon Dioxide BUN 63 H Creatinine Glucose 122 H POC Glucose 132 H 136 H Lactic Acid Calcium 8.3 L Ionized Calcium Phosphorus Magnesium Direct Bilirubin AST ALT Alkaline Phosphatase Lactate Dehydrogenase Troponin T C-Reactive Protein Total Protein Albumin Prealbumin Triglycerides Cholesterol LDL Cholesterol Direct HDL Cholesterol 25-OH Vitamin D Total PTH Intact Urine pH Urine WBC (Auto) Urine Creatinine Urine Total Protein Fluid Total Protein Vancomycin Trough Rheumatoid Factor Complement C4 Miscellaneous Test Crossmatch 12/21/16 12/21/16 12/22/16 17:22 23:58 05:49 WBC RBC Hgb Hct MCV MCH MCHC RDW Plt Count Lymph % (Auto) [place] % (Auto) Lymph # [place] # Baso # Seg Neutrophils % Seg Neuts % (Manual) Lymphocytes % (Manual) Monocytes % (Manual) Eosinophils % (Manual) Basophils % (Manual) Nucleated RBC % Seg Neutrophils # Seg Neutrophils # Man Lymphocytes # (Manual) Monocytes # (Manual) Eosinophils # (Manual) Basophils # (Manual) PT INR Fibrinogen dRVVT Confirm Interp Factor V Activity POC ABG pH POC ABG pCO2 POC ABG pO2 ABG pO2 ABG HCO3 ABG Base Excess ABG Hemoglobin Oxyhemoglobin Sodium Potassium Chloride Carbon Dioxide BUN Creatinine Glucose POC Glucose 135 H 149 H 140 H Lactic Acid Calcium Ionized Calcium Phosphorus Magnesium Direct Bilirubin AST ALT Alkaline Phosphatase Lactate Dehydrogenase Troponin T C-Reactive Protein Total Protein Albumin Prealbumin Triglycerides Cholesterol LDL Cholesterol Direct HDL Cholesterol 25-OH Vitamin D Total PTH Intact Urine pH Urine WBC (Auto) Urine Creatinine Urine Total Protein Fluid Total Protein Vancomycin Trough Rheumatoid Factor Complement C4 Miscellaneous Test Crossmatch 12/22/16 12/22/16 12/22/16 06:10 11:17 17:31 WBC RBC Hgb Hct MCV MCH MCHC RDW Plt Count Lymph % (Auto) [place] % (Auto) Lymph # [place] # Baso # Seg Neutrophils % Seg Neuts % (Manual) Lymphocytes % (Manual) Monocytes % (Manual) Eosinophils % (Manual) Basophils % (Manual) Nucleated RBC % Seg Neutrophils # Seg Neutrophils # Man Lymphocytes # (Manual) Monocytes # (Manual) Eosinophils # (Manual) Basophils # (Manual) PT INR Fibrinogen dRVVT Confirm Interp Factor V Activity POC ABG pH POC ABG pCO2 POC ABG pO2 ABG pO2 ABG HCO3 ABG Base Excess ABG Hemoglobin Oxyhemoglobin Sodium Potassium Chloride Carbon Dioxide BUN 76 H Creatinine 1.5 H Glucose 241 H POC Glucose 193 H 148 H Lactic Acid Calcium Ionized Calcium Phosphorus Magnesium Direct Bilirubin AST ALT Alkaline Phosphatase Lactate Dehydrogenase Troponin T C-Reactive Protein Total Protein Albumin Prealbumin Triglycerides Cholesterol LDL Cholesterol Direct HDL Cholesterol 25-OH Vitamin D Total PTH Intact Urine pH Urine WBC (Auto) Urine Creatinine Urine Total Protein Fluid Total Protein Vancomycin Trough Rheumatoid Factor Complement C4 Miscellaneous Test Crossmatch 12/22/16 12/23/16 12/23/16 23:58 05:00 05:26 WBC RBC Hgb Hct MCV MCH MCHC RDW Plt Count Lymph % (Auto) [place] % (Auto) Lymph # [place] # Baso # Seg Neutrophils % Seg Neuts % (Manual) Lymphocytes % (Manual) Monocytes % (Manual) Eosinophils % (Manual) Basophils % (Manual) Nucleated RBC % Seg Neutrophils # Seg Neutrophils # Man Lymphocytes # (Manual) Monocytes # (Manual) Eosinophils # (Manual) Basophils # (Manual) PT INR Fibrinogen dRVVT Confirm Interp Factor V Activity POC ABG pH POC ABG pCO2 POC ABG pO2 ABG pO2 ABG HCO3 ABG Base Excess ABG Hemoglobin Oxyhemoglobin Sodium Potassium Chloride Carbon Dioxide BUN 49 H Creatinine Glucose 143 H POC Glucose 165 H 154 H Lactic Acid Calcium 8.2 L Ionized Calcium Phosphorus Magnesium 1.60 L Direct Bilirubin AST ALT Alkaline Phosphatase Lactate Dehydrogenase Troponin T C-Reactive Protein Total Protein Albumin Prealbumin Triglycerides Cholesterol LDL Cholesterol Direct HDL Cholesterol 25-OH Vitamin D Total PTH Intact Urine pH Urine WBC (Auto) Urine Creatinine Urine Total Protein Fluid Total Protein Vancomycin Trough Rheumatoid Factor Complement C4 Miscellaneous Test Crossmatch 12/23/16 12/23/16 12/24/16 12:35 17:01 00:01 WBC RBC Hgb Hct MCV MCH MCHC RDW Plt Count Lymph % (Auto) [place] % (Auto) Lymph # [place] # Baso # Seg Neutrophils % Seg Neuts % (Manual) Lymphocytes % (Manual) Monocytes % (Manual) Eosinophils % (Manual) Basophils % (Manual) Nucleated RBC % Seg Neutrophils # Seg Neutrophils # Man Lymphocytes # (Manual) Monocytes # (Manual) Eosinophils # (Manual) Basophils # (Manual) PT INR Fibrinogen dRVVT Confirm Interp Factor V Activity POC ABG pH POC ABG pCO2 POC ABG pO2 ABG pO2 ABG HCO3 ABG Base Excess ABG Hemoglobin Oxyhemoglobin Sodium Potassium Chloride Carbon Dioxide BUN Creatinine Glucose POC Glucose 164 H 149 H 135 H Lactic Acid Calcium Ionized Calcium Phosphorus Magnesium Direct Bilirubin AST ALT Alkaline Phosphatase Lactate Dehydrogenase Troponin T C-Reactive Protein Total Protein Albumin Prealbumin Triglycerides Cholesterol LDL Cholesterol Direct HDL Cholesterol 25-OH Vitamin D Total PTH Intact Urine pH Urine WBC (Auto) Urine Creatinine Urine Total Protein Fluid Total Protein Vancomycin Trough Rheumatoid Factor Complement C4 Miscellaneous Test Crossmatch 12/24/16 12/24/16 12/24/16 05:41 07:01 11:38 WBC RBC Hgb Hct MCV MCH MCHC RDW Plt Count Lymph % (Auto) [place] % (Auto) Lymph # [place] # Baso # Seg Neutrophils % Seg Neuts % (Manual) Lymphocytes % (Manual) Monocytes % (Manual) Eosinophils % (Manual) Basophils % (Manual) Nucleated RBC % Seg Neutrophils # Seg Neutrophils # Man Lymphocytes # (Manual) Monocytes # (Manual) Eosinophils # (Manual) Basophils # (Manual) PT INR Fibrinogen dRVVT Confirm Interp Factor V Activity POC ABG pH POC ABG pCO2 POC ABG pO2 ABG pO2 ABG HCO3 ABG Base Excess ABG Hemoglobin Oxyhemoglobin Sodium Potassium Chloride Carbon Dioxide BUN 72 H Creatinine 1.3 H Glucose 130 H POC Glucose 132 H 156 H Lactic Acid Calcium 8.2 L Ionized Calcium Phosphorus Magnesium Direct Bilirubin AST ALT Alkaline Phosphatase Lactate Dehydrogenase Troponin T C-Reactive Protein Total Protein Albumin Prealbumin Triglycerides Cholesterol LDL Cholesterol Direct HDL Cholesterol 25-OH Vitamin D Total PTH Intact Urine pH Urine WBC (Auto) Urine Creatinine Urine Total Protein Fluid Total Protein Vancomycin Trough Rheumatoid Factor Complement C4 Miscellaneous Test Crossmatch 12/24/16 12/25/16 12/25/16 17:53 00:23 05:45 WBC RBC Hgb Hct MCV MCH MCHC RDW Plt Count Lymph % (Auto) [place] % (Auto) Lymph # [place] # Baso # Seg Neutrophils % Seg Neuts % (Manual) Lymphocytes % (Manual) Monocytes % (Manual) Eosinophils % (Manual) Basophils % (Manual) Nucleated RBC % Seg Neutrophils # Seg Neutrophils # Man Lymphocytes # (Manual) Monocytes # (Manual) Eosinophils # (Manual) Basophils # (Manual) PT INR Fibrinogen dRVVT Confirm Interp Factor V Activity POC ABG pH POC ABG pCO2 POC ABG pO2 ABG pO2 ABG HCO3 ABG Base Excess ABG Hemoglobin Oxyhemoglobin Sodium 146 H Potassium Chloride Carbon Dioxide BUN 51 H Creatinine Glucose 109 H POC Glucose 169 H 117 H Lactic Acid Calcium Ionized Calcium Phosphorus Magnesium Direct Bilirubin AST ALT Alkaline Phosphatase Lactate Dehydrogenase Troponin T C-Reactive Protein Total Protein Albumin Prealbumin Triglycerides Cholesterol LDL Cholesterol Direct HDL Cholesterol 25-OH Vitamin D Total PTH Intact Urine pH Urine WBC (Auto) Urine Creatinine Urine Total Protein Fluid Total Protein Vancomycin Trough Rheumatoid Factor Complement C4 Miscellaneous Test Crossmatch 12/25/16 12/25/16 12/25/16 06:43 11:29 17:14 WBC RBC Hgb Hct MCV MCH MCHC RDW Plt Count Lymph % (Auto) [place] % (Auto) Lymph # [place] # Baso # Seg Neutrophils % Seg Neuts % (Manual) Lymphocytes % (Manual) Monocytes % (Manual) Eosinophils % (Manual) Basophils % (Manual) Nucleated RBC % Seg Neutrophils # Seg Neutrophils # Man Lymphocytes # (Manual) Monocytes # (Manual) Eosinophils # (Manual) Basophils # (Manual) PT INR Fibrinogen dRVVT Confirm Interp Factor V Activity POC ABG pH POC ABG pCO2 POC ABG pO2 ABG pO2 ABG HCO3 ABG Base Excess ABG Hemoglobin Oxyhemoglobin Sodium Potassium Chloride Carbon Dioxide BUN Creatinine Glucose POC Glucose 117 H 128 H 120 H Lactic Acid Calcium Ionized Calcium Phosphorus Magnesium Direct Bilirubin AST ALT Alkaline Phosphatase Lactate Dehydrogenase Troponin T C-Reactive Protein Total Protein Albumin Prealbumin Triglycerides Cholesterol LDL Cholesterol Direct HDL Cholesterol 25-OH Vitamin D Total PTH Intact Urine pH Urine WBC (Auto) Urine Creatinine Urine Total Protein Fluid Total Protein Vancomycin Trough Rheumatoid Factor Complement C4 Miscellaneous Test Crossmatch 12/25/16 12/26/16 12/26/16 23:54 05:40 05:50 WBC 16.2 H RBC 2.32 L Hgb 6.2 L Hct 20.1 L MCV MCH 27 L MCHC RDW 18.6 H Plt Count Lymph % (Auto) [place] % (Auto) Lymph # [place] # Baso # Seg Neutrophils % Seg Neuts % (Manual) Lymphocytes % (Manual) Monocytes % (Manual) Eosinophils % (Manual) Basophils % (Manual) Nucleated RBC % Seg Neutrophils # Seg Neutrophils # Man Lymphocytes # (Manual) Monocytes # (Manual) Eosinophils # (Manual) Basophils # (Manual) PT INR Fibrinogen dRVVT Confirm Interp Factor V Activity POC ABG pH POC ABG pCO2 POC ABG pO2 ABG pO2 ABG HCO3 ABG Base Excess ABG Hemoglobin Oxyhemoglobin Sodium Potassium Chloride Carbon Dioxide BUN Creatinine Glucose POC Glucose 126 H 132 H Lactic Acid Calcium Ionized Calcium Phosphorus Magnesium Direct Bilirubin AST ALT Alkaline Phosphatase Lactate Dehydrogenase Troponin T C-Reactive Protein Total Protein Albumin Prealbumin Triglycerides Cholesterol LDL Cholesterol Direct HDL Cholesterol 25-OH Vitamin D Total PTH Intact Urine pH Urine WBC (Auto) Urine Creatinine Urine Total Protein Fluid Total Protein Vancomycin Trough Rheumatoid Factor Complement C4 Miscellaneous Test Crossmatch 12/26/16 12/26/16 12/26/16 05:50 12:17 12:33 WBC RBC Hgb Hct MCV MCH MCHC RDW Plt Count Lymph % (Auto) [place] % (Auto) Lymph # [place] # Baso # Seg Neutrophils % Seg Neuts % (Manual) Lymphocytes % (Manual) Monocytes % (Manual) Eosinophils % (Manual) Basophils % (Manual) Nucleated RBC % Seg Neutrophils # Seg Neutrophils # Man Lymphocytes # (Manual) Monocytes # (Manual) Eosinophils # (Manual) Basophils # (Manual) PT INR Fibrinogen dRVVT Confirm Interp Factor V Activity POC ABG pH POC ABG pCO2 POC ABG pO2 ABG pO2 ABG HCO3 ABG Base Excess ABG Hemoglobin Oxyhemoglobin Sodium Potassium Chloride Carbon Dioxide BUN 73 H Creatinine 1.3 H Glucose 113 H POC Glucose 117 H Lactic Acid Calcium Ionized Calcium Phosphorus Magnesium Direct Bilirubin AST ALT Alkaline Phosphatase Lactate Dehydrogenase Troponin T C-Reactive Protein Total Protein Albumin Prealbumin Triglycerides Cholesterol LDL Cholesterol Direct HDL Cholesterol 25-OH Vitamin D Total PTH Intact Urine pH Urine WBC (Auto) Urine Creatinine Urine Total Protein Fluid Total Protein Vancomycin Trough Rheumatoid Factor Complement C4 Miscellaneous Test Crossmatch See Detail 12/26/16 12/26/16 12/27/16 20:00 23:21 05:00 WBC RBC Hgb 8.4 L Hct 26.3 L D MCV MCH MCHC RDW Plt Count Lymph % (Auto) [place] % (Auto) Lymph # [place] # Baso # Seg Neutrophils % Seg Neuts % (Manual) Lymphocytes % (Manual) Monocytes % (Manual) Eosinophils % (Manual) Basophils % (Manual) Nucleated RBC % Seg Neutrophils # Seg Neutrophils # Man Lymphocytes # (Manual) Monocytes # (Manual) Eosinophils # (Manual) Basophils # (Manual) PT INR Fibrinogen dRVVT Confirm Interp Factor V Activity POC ABG pH POC ABG pCO2 POC ABG pO2 ABG pO2 ABG HCO3 ABG Base Excess ABG Hemoglobin Oxyhemoglobin Sodium Potassium Chloride Carbon Dioxide BUN 85 H Creatinine 1.6 H Glucose 118 H POC Glucose 124 H Lactic Acid Calcium Ionized Calcium Phosphorus 4.80 H Magnesium Direct Bilirubin AST ALT Alkaline Phosphatase Lactate Dehydrogenase Troponin T C-Reactive Protein Total Protein Albumin Prealbumin Triglycerides Cholesterol LDL Cholesterol Direct HDL Cholesterol 25-OH Vitamin D Total PTH Intact Urine pH Urine WBC (Auto) Urine Creatinine Urine Total Protein Fluid Total Protein Vancomycin Trough Rheumatoid Factor Complement C4 Miscellaneous Test Crossmatch 12/27/16 12/27/16 12/27/16 05:00 05:35 12:24 WBC RBC Hgb 7.6 L Hct 22.8 L MCV MCH MCHC RDW Plt Count Lymph % (Auto) [place] % (Auto) Lymph # [place] # Baso # Seg Neutrophils % Seg Neuts % (Manual) Lymphocytes % (Manual) Monocytes % (Manual) Eosinophils % (Manual) Basophils % (Manual) Nucleated RBC % Seg Neutrophils # Seg Neutrophils # Man Lymphocytes # (Manual) Monocytes # (Manual) Eosinophils # (Manual) Basophils # (Manual) PT INR Fibrinogen dRVVT Confirm Interp Factor V Activity POC ABG pH POC ABG pCO2 POC ABG pO2 ABG pO2 ABG HCO3 ABG Base Excess ABG Hemoglobin Oxyhemoglobin Sodium Potassium Chloride Carbon Dioxide BUN Creatinine Glucose POC Glucose 115 H 131 H Lactic Acid Calcium Ionized Calcium Phosphorus Magnesium Direct Bilirubin AST ALT Alkaline Phosphatase Lactate Dehydrogenase Troponin T C-Reactive Protein Total Protein Albumin Prealbumin Triglycerides Cholesterol LDL Cholesterol Direct HDL Cholesterol 25-OH Vitamin D Total PTH Intact Urine pH Urine WBC (Auto) Urine Creatinine Urine Total Protein Fluid Total Protein Vancomycin Trough Rheumatoid Factor Complement C4 Miscellaneous Test Crossmatch 12/27/16 12/28/16 12/28/16 17:16 00:18 04:00 WBC RBC Hgb Hct MCV MCH MCHC RDW Plt Count Lymph % (Auto) [place] % (Auto) Lymph # [place] # Baso # Seg Neutrophils % Seg Neuts % (Manual) Lymphocytes % (Manual) Monocytes % (Manual) Eosinophils % (Manual) Basophils % (Manual) Nucleated RBC % Seg Neutrophils # Seg Neutrophils # Man Lymphocytes # (Manual) Monocytes # (Manual) Eosinophils # (Manual) Basophils # (Manual) PT INR Fibrinogen dRVVT Confirm Interp Factor V Activity POC ABG pH POC ABG pCO2 POC ABG pO2 ABG pO2 ABG HCO3 ABG Base Excess ABG Hemoglobin Oxyhemoglobin Sodium Potassium 3.5 L Chloride Carbon Dioxide BUN 57 H Creatinine Glucose 118 H POC Glucose 136 H 120 H Lactic Acid Calcium 8.3 L Ionized Calcium Phosphorus Magnesium Direct Bilirubin AST ALT Alkaline Phosphatase Lactate Dehydrogenase Troponin T C-Reactive Protein Total Protein Albumin Prealbumin Triglycerides Cholesterol LDL Cholesterol Direct HDL Cholesterol 25-OH Vitamin D Total PTH Intact Urine pH Urine WBC (Auto) Urine Creatinine Urine Total Protein Fluid Total Protein Vancomycin Trough Rheumatoid Factor Complement C4 Miscellaneous Test Crossmatch 12/28/16 12/28/16 12/28/16 04:00 05:11 08:30 WBC 17.0 H RBC 2.58 L Hgb 7.1 L Hct 22.0 L MCV MCH MCHC RDW 17.6 H Plt Count Lymph % (Auto) 12.2 L [place] % (Auto) Lymph # [place] # 1.1 H Baso # Seg Neutrophils % 80.5 H Seg Neuts % (Manual) Lymphocytes % (Manual) Monocytes % (Manual) Eosinophils % (Manual) Basophils % (Manual) Nucleated RBC % Seg Neutrophils # 13.7 H Seg Neutrophils # Man Lymphocytes # (Manual) Monocytes # (Manual) Eosinophils # (Manual) Basophils # (Manual) PT 16.1 H INR 1.23 H Fibrinogen dRVVT Confirm Interp Factor V Activity POC ABG pH POC ABG pCO2 POC ABG pO2 ABG pO2 ABG HCO3 ABG Base Excess ABG Hemoglobin Oxyhemoglobin Sodium Potassium Chloride Carbon Dioxide BUN Creatinine Glucose POC Glucose 122 H Lactic Acid Calcium Ionized Calcium Phosphorus Magnesium Direct Bilirubin AST ALT Alkaline Phosphatase Lactate Dehydrogenase Troponin T C-Reactive Protein Total Protein Albumin Prealbumin Triglycerides Cholesterol LDL Cholesterol Direct HDL Cholesterol 25-OH Vitamin D Total PTH Intact Urine pH Urine WBC (Auto) Urine Creatinine Urine Total Protein Fluid Total Protein Vancomycin Trough Rheumatoid Factor Complement C4 Miscellaneous Test Crossmatch 12/28/16 12/28/16 12/28/16 12:27 16:32 23:46 WBC RBC Hgb Hct MCV MCH MCHC RDW Plt Count Lymph % (Auto) [place] % (Auto) Lymph # [place] # Baso # Seg Neutrophils % Seg Neuts % (Manual) Lymphocytes % (Manual) Monocytes % (Manual) Eosinophils % (Manual) Basophils % (Manual) Nucleated RBC % Seg Neutrophils # Seg Neutrophils # Man Lymphocytes # (Manual) Monocytes # (Manual) Eosinophils # (Manual) Basophils # (Manual) PT INR Fibrinogen dRVVT Confirm Interp Factor V Activity POC ABG pH POC ABG pCO2 POC ABG pO2 ABG pO2 ABG HCO3 ABG Base Excess ABG Hemoglobin Oxyhemoglobin Sodium Potassium Chloride Carbon Dioxide BUN Creatinine Glucose POC Glucose 127 H 117 H 108 H Lactic Acid Calcium Ionized Calcium Phosphorus Magnesium Direct Bilirubin AST ALT Alkaline Phosphatase Lactate Dehydrogenase Troponin T C-Reactive Protein Total Protein Albumin Prealbumin Triglycerides Cholesterol LDL Cholesterol Direct HDL Cholesterol 25-OH Vitamin D Total PTH Intact Urine pH Urine WBC (Auto) Urine Creatinine Urine Total Protein Fluid Total Protein Vancomycin Trough Rheumatoid Factor Complement C4 Miscellaneous Test Crossmatch 12/29/16 12/29/16 12/29/16 05:15 05:15 05:32 WBC RBC Hgb Hct MCV MCH MCHC RDW Plt Count Lymph % (Auto) [place] % (Auto) Lymph # [place] # Baso # Seg Neutrophils % Seg Neuts % (Manual) Lymphocytes % (Manual) Monocytes % (Manual) Eosinophils % (Manual) Basophils % (Manual) Nucleated RBC % Seg Neutrophils # Seg Neutrophils # Man Lymphocytes # (Manual) Monocytes # (Manual) Eosinophils # (Manual) Basophils # (Manual) PT INR Fibrinogen dRVVT Confirm Interp Factor V Activity POC ABG pH POC ABG pCO2 POC ABG pO2 ABG pO2 ABG HCO3 ABG Base Excess ABG Hemoglobin Oxyhemoglobin Sodium Potassium Chloride Carbon Dioxide BUN 74 H Creatinine 1.6 H Glucose 111 H POC Glucose 123 H Lactic Acid Calcium Ionized Calcium Phosphorus Magnesium Direct Bilirubin AST ALT Alkaline Phosphatase Lactate Dehydrogenase Troponin T C-Reactive Protein Total Protein Albumin Prealbumin 0.110 L Triglycerides Cholesterol LDL Cholesterol Direct HDL Cholesterol 25-OH Vitamin D Total PTH Intact Urine pH Urine WBC (Auto) Urine Creatinine Urine Total Protein Fluid Total Protein Vancomycin Trough Rheumatoid Factor Complement C4 Miscellaneous Test Crossmatch 12/29/16 12/29/16 12/29/16 11:43 13:45 14:00 WBC 13.8 H RBC 2.26 L Hgb 6.3 L Hct 20.4 L MCV MCH MCHC RDW 18.3 H Plt Count Lymph % (Auto) [place] % (Auto) Lymph # [place] # 0.9 H Baso # Seg Neutrophils % 78.6 H Seg Neuts % (Manual) Lymphocytes % (Manual) Monocytes % (Manual) Eosinophils % (Manual) Basophils % (Manual) Nucleated RBC % Seg Neutrophils # 10.8 H Seg Neutrophils # Man Lymphocytes # (Manual) Monocytes # (Manual) Eosinophils # (Manual) Basophils # (Manual) PT INR Fibrinogen dRVVT Confirm Interp Factor V Activity POC ABG pH POC ABG pCO2 POC ABG pO2 ABG pO2 ABG HCO3 ABG Base Excess ABG Hemoglobin Oxyhemoglobin Sodium Potassium Chloride Carbon Dioxide BUN Creatinine Glucose POC Glucose 133 H Lactic Acid Calcium Ionized Calcium Phosphorus Magnesium Direct Bilirubin AST ALT Alkaline Phosphatase Lactate Dehydrogenase Troponin T C-Reactive Protein Total Protein Albumin Prealbumin Triglycerides Cholesterol LDL Cholesterol Direct HDL Cholesterol 25-OH Vitamin D Total PTH Intact Urine pH Urine WBC (Auto) Urine Creatinine Urine Total Protein Fluid Total Protein Vancomycin Trough Rheumatoid Factor Complement C4 Miscellaneous Test Crossmatch See Detail 12/29/16 12/29/16 12/29/16 17:03 23:15 23:22 WBC RBC Hgb 7.3 L Hct 22.3 L MCV MCH MCHC RDW Plt Count Lymph % (Auto) [place] % (Auto) Lymph # [place] # Baso # Seg Neutrophils % Seg Neuts % (Manual) Lymphocytes % (Manual) Monocytes % (Manual) Eosinophils % (Manual) Basophils % (Manual) Nucleated RBC % Seg Neutrophils # Seg Neutrophils # Man Lymphocytes # (Manual) Monocytes # (Manual) Eosinophils # (Manual) Basophils # (Manual) PT INR Fibrinogen dRVVT Confirm Interp Factor V Activity POC ABG pH POC ABG pCO2 POC ABG pO2 ABG pO2 ABG HCO3 ABG Base Excess ABG Hemoglobin Oxyhemoglobin Sodium Potassium Chloride Carbon Dioxide BUN Creatinine Glucose POC Glucose 139 H 120 H Lactic Acid Calcium Ionized Calcium Phosphorus Magnesium Direct Bilirubin AST ALT Alkaline Phosphatase Lactate Dehydrogenase Troponin T C-Reactive Protein Total Protein Albumin Prealbumin Triglycerides Cholesterol LDL Cholesterol Direct HDL Cholesterol 25-OH Vitamin D Total PTH Intact Urine pH Urine WBC (Auto) Urine Creatinine Urine Total Protein Fluid Total Protein Vancomycin Trough Rheumatoid Factor Complement C4 Miscellaneous Test Crossmatch 12/30/16 12/30/16 12/30/16 04:20 04:20 05:43 WBC 15.6 H RBC 2.81 L Hgb 8.0 L Hct 24.0 L MCV MCH MCHC RDW 16.9 H Plt Count Lymph % (Auto) [place] % (Auto) Lymph # [place] # 1.0 H Baso # Seg Neutrophils % 76.2 H Seg Neuts % (Manual) Lymphocytes % (Manual) Monocytes % (Manual) Eosinophils % (Manual) Basophils % (Manual) Nucleated RBC % Seg Neutrophils # 11.9 H Seg Neutrophils # Man Lymphocytes # (Manual) Monocytes # (Manual) Eosinophils # (Manual) Basophils # (Manual) PT INR Fibrinogen dRVVT Confirm Interp Factor V Activity POC ABG pH POC ABG pCO2 POC ABG pO2 ABG pO2 ABG HCO3 ABG Base Excess ABG Hemoglobin Oxyhemoglobin Sodium Potassium Chloride Carbon Dioxide BUN 87 H Creatinine 1.8 H Glucose 119 H POC Glucose 115 H Lactic Acid Calcium Ionized Calcium Phosphorus Magnesium Direct Bilirubin AST ALT Alkaline Phosphatase Lactate Dehydrogenase Troponin T C-Reactive Protein Total Protein Albumin Prealbumin Triglycerides Cholesterol LDL Cholesterol Direct HDL Cholesterol 25-OH Vitamin D Total PTH Intact Urine pH Urine WBC (Auto) Urine Creatinine Urine Total Protein Fluid Total Protein Vancomycin Trough Rheumatoid Factor Complement C4 Miscellaneous Test Crossmatch 12/30/16 12/30/16 12/31/16 17:27 23:21 04:00 WBC RBC Hgb Hct MCV MCH MCHC RDW Plt Count Lymph % (Auto) [place] % (Auto) Lymph # [place] # Baso # Seg Neutrophils % Seg Neuts % (Manual) Lymphocytes % (Manual) Monocytes % (Manual) Eosinophils % (Manual) Basophils % (Manual) Nucleated RBC % Seg Neutrophils # Seg Neutrophils # Man Lymphocytes # (Manual) Monocytes # (Manual) Eosinophils # (Manual) Basophils # (Manual) PT INR Fibrinogen dRVVT Confirm Interp Factor V Activity POC ABG pH POC ABG pCO2 POC ABG pO2 ABG pO2 ABG HCO3 ABG Base Excess ABG Hemoglobin Oxyhemoglobin Sodium Potassium Chloride Carbon Dioxide BUN 59 H Creatinine Glucose 298 H POC Glucose 144 H 125 H Lactic Acid Calcium Ionized Calcium Phosphorus Magnesium Direct Bilirubin AST ALT Alkaline Phosphatase Lactate Dehydrogenase Troponin T C-Reactive Protein Total Protein Albumin Prealbumin Triglycerides Cholesterol LDL Cholesterol Direct HDL Cholesterol 25-OH Vitamin D Total PTH Intact Urine pH Urine WBC (Auto) Urine Creatinine Urine Total Protein Fluid Total Protein Vancomycin Trough Rheumatoid Factor Complement C4 Miscellaneous Test Crossmatch 12/31/16 12/31/16 12/31/16 05:11 12:18 18:17 WBC RBC Hgb Hct MCV MCH MCHC RDW Plt Count Lymph % (Auto) [place] % (Auto) Lymph # [place] # Baso # Seg Neutrophils % Seg Neuts % (Manual) Lymphocytes % (Manual) Monocytes % (Manual) Eosinophils % (Manual) Basophils % (Manual) Nucleated RBC % Seg Neutrophils # Seg Neutrophils # Man Lymphocytes # (Manual) Monocytes # (Manual) Eosinophils # (Manual) Basophils # (Manual) PT INR Fibrinogen dRVVT Confirm Interp Factor V Activity POC ABG pH POC ABG pCO2 POC ABG pO2 ABG pO2 ABG HCO3 ABG Base Excess ABG Hemoglobin Oxyhemoglobin Sodium Potassium Chloride Carbon Dioxide BUN Creatinine Glucose POC Glucose 167 H 125 H 133 H Lactic Acid Calcium Ionized Calcium Phosphorus Magnesium Direct Bilirubin AST ALT Alkaline Phosphatase Lactate Dehydrogenase Troponin T C-Reactive Protein Total Protein Albumin Prealbumin Triglycerides Cholesterol LDL Cholesterol Direct HDL Cholesterol 25-OH Vitamin D Total PTH Intact Urine pH Urine WBC (Auto) Urine Creatinine Urine Total Protein Fluid Total Protein Vancomycin Trough Rheumatoid Factor Complement C4 Miscellaneous Test Crossmatch 12/31/16 01/01/17 01/01/17 23:55 05:00 05:12 WBC RBC Hgb Hct MCV MCH MCHC RDW Plt Count Lymph % (Auto) [place] % (Auto) Lymph # [place] # Baso # Seg Neutrophils % Seg Neuts % (Manual) Lymphocytes % (Manual) Monocytes % (Manual) Eosinophils % (Manual) Basophils % (Manual) Nucleated RBC % Seg Neutrophils # Seg Neutrophils # Man Lymphocytes # (Manual) Monocytes # (Manual) Eosinophils # (Manual) Basophils # (Manual) PT INR Fibrinogen dRVVT Confirm Interp Factor V Activity POC ABG pH POC ABG pCO2 POC ABG pO2 ABG pO2 ABG HCO3 ABG Base Excess ABG Hemoglobin Oxyhemoglobin Sodium Potassium Chloride Carbon Dioxide BUN 76 H Creatinine 1.5 H Glucose 109 H POC Glucose 129 H 129 H Lactic Acid Calcium Ionized Calcium Phosphorus Magnesium Direct Bilirubin AST ALT Alkaline Phosphatase 536 H Lactate Dehydrogenase Troponin T C-Reactive Protein Total Protein Albumin 1.5 L Prealbumin Triglycerides Cholesterol LDL Cholesterol Direct HDL Cholesterol 25-OH Vitamin D Total PTH Intact Urine pH Urine WBC (Auto) Urine Creatinine Urine Total Protein Fluid Total Protein Vancomycin Trough Rheumatoid Factor Complement C4 Miscellaneous Test Crossmatch 01/01/17 01/01/17 01/01/17 12:25 17:01 23:32 WBC RBC Hgb Hct MCV MCH MCHC RDW Plt Count Lymph % (Auto) [place] % (Auto) Lymph # [place] # Baso # Seg Neutrophils % Seg Neuts % (Manual) Lymphocytes % (Manual) Monocytes % (Manual) Eosinophils % (Manual) Basophils % (Manual) Nucleated RBC % Seg Neutrophils # Seg Neutrophils # Man Lymphocytes # (Manual) Monocytes # (Manual) Eosinophils # (Manual) Basophils # (Manual) PT INR Fibrinogen dRVVT Confirm Interp Factor V Activity POC ABG pH POC ABG pCO2 POC ABG pO2 ABG pO2 ABG HCO3 ABG Base Excess ABG Hemoglobin Oxyhemoglobin Sodium Potassium Chloride Carbon Dioxide BUN Creatinine Glucose POC Glucose 140 H 142 H 112 H Lactic Acid Calcium Ionized Calcium Phosphorus Magnesium Direct Bilirubin AST ALT Alkaline Phosphatase Lactate Dehydrogenase Troponin T C-Reactive Protein Total Protein Albumin Prealbumin Triglycerides Cholesterol LDL Cholesterol Direct HDL Cholesterol 25-OH Vitamin D Total PTH Intact Urine pH Urine WBC (Auto) Urine Creatinine Urine Total Protein Fluid Total Protein Vancomycin Trough Rheumatoid Factor Complement C4 Miscellaneous Test Crossmatch 01/02/17 01/02/17 01/02/17 04:56 06:00 11:37 WBC RBC Hgb Hct MCV MCH MCHC RDW Plt Count Lymph % (Auto) [place] % (Auto) Lymph # [place] # Baso # Seg Neutrophils % Seg Neuts % (Manual) Lymphocytes % (Manual) Monocytes % (Manual) Eosinophils % (Manual) Basophils % (Manual) Nucleated RBC % Seg Neutrophils # Seg Neutrophils # Man Lymphocytes # (Manual) Monocytes # (Manual) Eosinophils # (Manual) Basophils # (Manual) PT INR Fibrinogen dRVVT Confirm Interp Factor V Activity POC ABG pH POC ABG pCO2 POC ABG pO2 ABG pO2 ABG HCO3 ABG Base Excess ABG Hemoglobin Oxyhemoglobin Sodium Potassium Chloride Carbon Dioxide BUN 88 H Creatinine 1.7 H Glucose 113 H POC Glucose 136 H 200 H Lactic Acid Calcium Ionized Calcium Phosphorus Magnesium Direct Bilirubin AST ALT Alkaline Phosphatase Lactate Dehydrogenase Troponin T C-Reactive Protein Total Protein Albumin Prealbumin Triglycerides Cholesterol LDL Cholesterol Direct HDL Cholesterol 25-OH Vitamin D Total PTH Intact Urine pH Urine WBC (Auto) Urine Creatinine Urine Total Protein Fluid Total Protein Vancomycin Trough Rheumatoid Factor Complement C4 Miscellaneous Test Crossmatch 01/02/17 01/02/17 01/03/17 17:42 22:52 04:54 WBC RBC Hgb Hct MCV MCH MCHC RDW Plt Count Lymph % (Auto) [place] % (Auto) Lymph # [place] # Baso # Seg Neutrophils % Seg Neuts % (Manual) Lymphocytes % (Manual) Monocytes % (Manual) Eosinophils % (Manual) Basophils % (Manual) Nucleated RBC % Seg Neutrophils # Seg Neutrophils # Man Lymphocytes # (Manual) Monocytes # (Manual) Eosinophils # (Manual) Basophils # (Manual) PT INR Fibrinogen dRVVT Confirm Interp Factor V Activity POC ABG pH POC ABG pCO2 POC ABG pO2 ABG pO2 ABG HCO3 ABG Base Excess ABG Hemoglobin Oxyhemoglobin Sodium Potassium Chloride Carbon Dioxide BUN Creatinine Glucose POC Glucose 112 H 133 H 111 H Lactic Acid Calcium Ionized Calcium Phosphorus Magnesium Direct Bilirubin AST ALT Alkaline Phosphatase Lactate Dehydrogenase Troponin T C-Reactive Protein Total Protein Albumin Prealbumin Triglycerides Cholesterol LDL Cholesterol Direct HDL Cholesterol 25-OH Vitamin D Total PTH Intact Urine pH Urine WBC (Auto) Urine Creatinine Urine Total Protein Fluid Total Protein Vancomycin Trough Rheumatoid Factor Complement C4 Miscellaneous Test Crossmatch 01/03/17 01/03/17 01/03/17 05:00 05:00 14:02 WBC 11.2 H RBC 2.56 L Hgb 7.2 L Hct 22.3 L MCV MCH MCHC RDW 17.3 H Plt Count Lymph % (Auto) [place] % (Auto) 10.0 H Lymph # [place] # 1.1 H Baso # Seg Neutrophils % 70.5 H Seg Neuts % (Manual) Lymphocytes % (Manual) Monocytes % (Manual) Eosinophils % (Manual) Basophils % (Manual) Nucleated RBC % Seg Neutrophils # 7.9 H Seg Neutrophils # Man Lymphocytes # (Manual) Monocytes # (Manual) Eosinophils # (Manual) Basophils # (Manual) PT INR Fibrinogen dRVVT Confirm Interp Factor V Activity POC ABG pH POC ABG pCO2 POC ABG pO2 ABG pO2 ABG HCO3 ABG Base Excess ABG Hemoglobin Oxyhemoglobin Sodium Potassium Chloride Carbon Dioxide BUN 60 H Creatinine 1.3 H Glucose 110 H POC Glucose 119 H Lactic Acid Calcium Ionized Calcium Phosphorus Magnesium Direct Bilirubin AST ALT Alkaline Phosphatase Lactate Dehydrogenase Troponin T C-Reactive Protein Total Protein Albumin Prealbumin Triglycerides Cholesterol LDL Cholesterol Direct HDL Cholesterol 25-OH Vitamin D Total PTH Intact Urine pH Urine WBC (Auto) Urine Creatinine Urine Total Protein Fluid Total Protein Vancomycin Trough Rheumatoid Factor Complement C4 Miscellaneous Test Crossmatch 01/03/17 01/03/17 01/04/17 18:13 23:40 05:57 WBC RBC Hgb Hct MCV MCH MCHC RDW Plt Count Lymph % (Auto) [place] % (Auto) Lymph # [place] # Baso # Seg Neutrophils % Seg Neuts % (Manual) Lymphocytes % (Manual) Monocytes % (Manual) Eosinophils % (Manual) Basophils % (Manual) Nucleated RBC % Seg Neutrophils # Seg Neutrophils # Man Lymphocytes # (Manual) Monocytes # (Manual) Eosinophils # (Manual) Basophils # (Manual) PT INR Fibrinogen dRVVT Confirm Interp Factor V Activity POC ABG pH POC ABG pCO2 POC ABG pO2 ABG pO2 ABG HCO3 ABG Base Excess ABG Hemoglobin Oxyhemoglobin Sodium Potassium Chloride Carbon Dioxide BUN Creatinine Glucose POC Glucose 107 H 129 H 111 H Lactic Acid Calcium Ionized Calcium Phosphorus Magnesium Direct Bilirubin AST ALT Alkaline Phosphatase Lactate Dehydrogenase Troponin T C-Reactive Protein Total Protein Albumin Prealbumin Triglycerides Cholesterol LDL Cholesterol Direct HDL Cholesterol 25-OH Vitamin D Total PTH Intact Urine pH Urine WBC (Auto) Urine Creatinine Urine Total Protein Fluid Total Protein Vancomycin Trough Rheumatoid Factor Complement C4 Miscellaneous Test Crossmatch 01/04/17 01/04/17 01/04/17 12:46 15:27 17:11 WBC RBC Hgb Hct MCV MCH MCHC RDW Plt Count Lymph % (Auto) [place] % (Auto) Lymph # [place] # Baso # Seg Neutrophils % Seg Neuts % (Manual) Lymphocytes % (Manual) Monocytes % (Manual) Eosinophils % (Manual) Basophils % (Manual) Nucleated RBC % Seg Neutrophils # Seg Neutrophils # Man Lymphocytes # (Manual) Monocytes # (Manual) Eosinophils # (Manual) Basophils # (Manual) PT INR Fibrinogen dRVVT Confirm Interp Factor V Activity POC ABG pH POC ABG pCO2 POC ABG pO2 ABG pO2 ABG HCO3 ABG Base Excess ABG Hemoglobin Oxyhemoglobin Sodium Potassium Chloride Carbon Dioxide BUN 43 H Creatinine Glucose 124 H POC Glucose 159 H 125 H Lactic Acid Calcium 8.0 L Ionized Calcium Phosphorus 2.10 L Magnesium Direct Bilirubin AST ALT Alkaline Phosphatase Lactate Dehydrogenase Troponin T C-Reactive Protein Total Protein Albumin Prealbumin Triglycerides Cholesterol LDL Cholesterol Direct HDL Cholesterol 25-OH Vitamin D Total PTH Intact Urine pH Urine WBC (Auto) Urine Creatinine Urine Total Protein Fluid Total Protein Vancomycin Trough Rheumatoid Factor Complement C4 Miscellaneous Test Crossmatch 01/04/17 01/05/17 01/05/17 23:31 04:00 05:46 WBC RBC Hgb Hct MCV MCH MCHC RDW Plt Count Lymph % (Auto) [place] % (Auto) Lymph # [place] # Baso # Seg Neutrophils % Seg Neuts % (Manual) Lymphocytes % (Manual) Monocytes % (Manual) Eosinophils % (Manual) Basophils % (Manual) Nucleated RBC % Seg Neutrophils # Seg Neutrophils # Man Lymphocytes # (Manual) Monocytes # (Manual) Eosinophils # (Manual) Basophils # (Manual) PT INR Fibrinogen dRVVT Confirm Interp Factor V Activity POC ABG pH POC ABG pCO2 POC ABG pO2 ABG pO2 ABG HCO3 ABG Base Excess ABG Hemoglobin Oxyhemoglobin Sodium Potassium Chloride Carbon Dioxide BUN 52 H Creatinine 1.3 H Glucose 113 H POC Glucose 123 H 118 H Lactic Acid Calcium Ionized Calcium Phosphorus 2.40 L Magnesium Direct Bilirubin AST ALT Alkaline Phosphatase Lactate Dehydrogenase Troponin T C-Reactive Protein Total Protein Albumin Prealbumin Triglycerides Cholesterol LDL Cholesterol Direct HDL Cholesterol 25-OH Vitamin D Total PTH Intact Urine pH Urine WBC (Auto) Urine Creatinine Urine Total Protein Fluid Total Protein Vancomycin Trough Rheumatoid Factor Complement C4 Miscellaneous Test Crossmatch 01/05/17 01/05/17 01/05/17 11:41 17:48 23:27 WBC RBC Hgb Hct MCV MCH MCHC RDW Plt Count Lymph % (Auto) [place] % (Auto) Lymph # [place] # Baso # Seg Neutrophils % Seg Neuts % (Manual) Lymphocytes % (Manual) Monocytes % (Manual) Eosinophils % (Manual) Basophils % (Manual) Nucleated RBC % Seg Neutrophils # Seg Neutrophils # Man Lymphocytes # (Manual) Monocytes # (Manual) Eosinophils # (Manual) Basophils # (Manual) PT INR Fibrinogen dRVVT Confirm Interp Factor V Activity POC ABG pH POC ABG pCO2 POC ABG pO2 ABG pO2 ABG HCO3 ABG Base Excess ABG Hemoglobin Oxyhemoglobin Sodium Potassium Chloride Carbon Dioxide BUN Creatinine Glucose POC Glucose 163 H 142 H 155 H Lactic Acid Calcium Ionized Calcium Phosphorus Magnesium Direct Bilirubin AST ALT Alkaline Phosphatase Lactate Dehydrogenase Troponin T C-Reactive Protein Total Protein Albumin Prealbumin Triglycerides Cholesterol LDL Cholesterol Direct HDL Cholesterol 25-OH Vitamin D Total PTH Intact Urine pH Urine WBC (Auto) Urine Creatinine Urine Total Protein Fluid Total Protein Vancomycin Trough Rheumatoid Factor Complement C4 Miscellaneous Test Crossmatch 01/06/17 01/06/17 01/06/17 05:20 07:35 11:18 WBC RBC Hgb Hct MCV MCH MCHC RDW Plt Count Lymph % (Auto) [place] % (Auto) Lymph # [place] # Baso # Seg Neutrophils % Seg Neuts % (Manual) Lymphocytes % (Manual) Monocytes % (Manual) Eosinophils % (Manual) Basophils % (Manual) Nucleated RBC % Seg Neutrophils # Seg Neutrophils # Man Lymphocytes # (Manual) Monocytes # (Manual) Eosinophils # (Manual) Basophils # (Manual) PT INR Fibrinogen dRVVT Confirm Interp Factor V Activity POC ABG pH POC ABG pCO2 POC ABG pO2 ABG pO2 ABG HCO3 ABG Base Excess ABG Hemoglobin Oxyhemoglobin Sodium Potassium Chloride Carbon Dioxide BUN 74 H Creatinine 1.6 H Glucose 135 H POC Glucose 108 H 149 H Lactic Acid Calcium Ionized Calcium Phosphorus Magnesium Direct Bilirubin AST ALT Alkaline Phosphatase Lactate Dehydrogenase Troponin T C-Reactive Protein Total Protein Albumin Prealbumin Triglycerides Cholesterol LDL Cholesterol Direct HDL Cholesterol 25-OH Vitamin D Total PTH Intact Urine pH Urine WBC (Auto) Urine Creatinine Urine Total Protein Fluid Total Protein Vancomycin Trough Rheumatoid Factor Complement C4 Miscellaneous Test Crossmatch 01/06/17 01/07/17 01/07/17 17:17 00:23 05:31 WBC RBC Hgb Hct MCV MCH MCHC RDW Plt Count Lymph % (Auto) [place] % (Auto) Lymph # [place] # Baso # Seg Neutrophils % Seg Neuts % (Manual) Lymphocytes % (Manual) Monocytes % (Manual) Eosinophils % (Manual) Basophils % (Manual) Nucleated RBC % Seg Neutrophils # Seg Neutrophils # Man Lymphocytes # (Manual) Monocytes # (Manual) Eosinophils # (Manual) Basophils # (Manual) PT INR Fibrinogen dRVVT Confirm Interp Factor V Activity POC ABG pH POC ABG pCO2 POC ABG pO2 ABG pO2 ABG HCO3 ABG Base Excess ABG Hemoglobin Oxyhemoglobin Sodium Potassium Chloride Carbon Dioxide BUN Creatinine Glucose POC Glucose 146 H 165 H 153 H Lactic Acid Calcium Ionized Calcium Phosphorus Magnesium Direct Bilirubin AST ALT Alkaline Phosphatase Lactate Dehydrogenase Troponin T C-Reactive Protein Total Protein Albumin Prealbumin Triglycerides Cholesterol LDL Cholesterol Direct HDL Cholesterol 25-OH Vitamin D Total PTH Intact Urine pH Urine WBC (Auto) Urine Creatinine Urine Total Protein Fluid Total Protein Vancomycin Trough Rheumatoid Factor Complement C4 Miscellaneous Test Crossmatch 01/07/17 01/07/17 01/07/17 06:00 11:39 17:11 WBC RBC Hgb Hct MCV MCH MCHC RDW Plt Count Lymph % (Auto) [place] % (Auto) Lymph # [place] # Baso # Seg Neutrophils % Seg Neuts % (Manual) Lymphocytes % (Manual) Monocytes % (Manual) Eosinophils % (Manual) Basophils % (Manual) Nucleated RBC % Seg Neutrophils # Seg Neutrophils # Man Lymphocytes # (Manual) Monocytes # (Manual) Eosinophils # (Manual) Basophils # (Manual) PT INR Fibrinogen dRVVT Confirm Interp Factor V Activity POC ABG pH POC ABG pCO2 POC ABG pO2 ABG pO2 ABG HCO3 ABG Base Excess ABG Hemoglobin Oxyhemoglobin Sodium Potassium Chloride Carbon Dioxide BUN 42 H Creatinine Glucose 175 H POC Glucose 163 H 163 H Lactic Acid Calcium Ionized Calcium Phosphorus 2.40 L D Magnesium Direct Bilirubin AST ALT Alkaline Phosphatase Lactate Dehydrogenase Troponin T C-Reactive Protein Total Protein Albumin Prealbumin Triglycerides Cholesterol LDL Cholesterol Direct HDL Cholesterol 25-OH Vitamin D Total PTH Intact Urine pH Urine WBC (Auto) Urine Creatinine Urine Total Protein Fluid Total Protein Vancomycin Trough Rheumatoid Factor Complement C4 Miscellaneous Test Crossmatch 01/07/17 01/08/17 01/08/17 23:40 05:00 05:00 WBC 27.4 H RBC 2.27 L Hgb 6.1 L Hct 20.4 L MCV MCH 27 L MCHC RDW 17.8 H Plt Count Lymph % (Auto) [place] % (Auto) Lymph # [place] # Baso # Seg Neutrophils % Seg Neuts % (Manual) Lymphocytes % (Manual) Monocytes % (Manual) Eosinophils % (Manual) Basophils % (Manual) Nucleated RBC % Seg Neutrophils # Seg Neutrophils # Man Lymphocytes # (Manual) Monocytes # (Manual) Eosinophils # (Manual) Basophils # (Manual) PT INR Fibrinogen dRVVT Confirm Interp Factor V Activity POC ABG pH POC ABG pCO2 POC ABG pO2 ABG pO2 ABG HCO3 ABG Base Excess ABG Hemoglobin Oxyhemoglobin Sodium Potassium Chloride Carbon Dioxide 16 L D BUN 62 H Creatinine 1.6 H D Glucose 103 H POC Glucose 135 H Lactic Acid Calcium Ionized Calcium Phosphorus Magnesium Direct Bilirubin AST ALT Alkaline Phosphatase Lactate Dehydrogenase Troponin T C-Reactive Protein Total Protein Albumin Prealbumin Triglycerides Cholesterol LDL Cholesterol Direct HDL Cholesterol 25-OH Vitamin D Total PTH Intact Urine pH Urine WBC (Auto) Urine Creatinine Urine Total Protein Fluid Total Protein Vancomycin Trough Rheumatoid Factor Complement C4 Miscellaneous Test Crossmatch 01/08/17 01/08/17 01/08/17 05:25 10:37 10:37 WBC RBC Hgb Hct MCV MCH MCHC RDW Plt Count Lymph % (Auto) [place] % (Auto) Lymph # [place] # Baso # Seg Neutrophils % Seg Neuts % (Manual) Lymphocytes % (Manual) Monocytes % (Manual) Eosinophils % (Manual) Basophils % (Manual) Nucleated RBC % Seg Neutrophils # Seg Neutrophils # Man Lymphocytes # (Manual) Monocytes # (Manual) Eosinophils # (Manual) Basophils # (Manual) PT INR Fibrinogen dRVVT Confirm Interp Factor V Activity POC ABG pH POC ABG pCO2 POC ABG pO2 ABG pO2 ABG HCO3 ABG Base Excess ABG Hemoglobin Oxyhemoglobin Sodium Potassium Chloride Carbon Dioxide BUN Creatinine Glucose POC Glucose 106 H Lactic Acid Calcium Ionized Calcium Phosphorus Magnesium Direct Bilirubin AST ALT Alkaline Phosphatase Lactate Dehydrogenase Troponin T C-Reactive Protein 24.40 H Total Protein Albumin Prealbumin Triglycerides Cholesterol LDL Cholesterol Direct HDL Cholesterol 25-OH Vitamin D Total PTH Intact Urine pH Urine WBC (Auto) Urine Creatinine Urine Total Protein Fluid Total Protein Vancomycin Trough Rheumatoid Factor Complement C4 Miscellaneous Test Crossmatch See Detail 01/08/17 01/08/17 01/08/17 10:37 11:33 15:15 WBC RBC Hgb Hct MCV MCH MCHC RDW Plt Count Lymph % (Auto) [place] % (Auto) Lymph # [place] # Baso # Seg Neutrophils % Seg Neuts % (Manual) Lymphocytes % (Manual) Monocytes % (Manual) Eosinophils % (Manual) Basophils % (Manual) Nucleated RBC % Seg Neutrophils # Seg Neutrophils # Man Lymphocytes # (Manual) Monocytes # (Manual) Eosinophils # (Manual) Basophils # (Manual) PT INR Fibrinogen dRVVT Confirm Interp Factor V Activity POC ABG pH POC ABG pCO2 POC ABG pO2 ABG pO2 ABG HCO3 ABG Base Excess ABG Hemoglobin Oxyhemoglobin Sodium Potassium Chloride Carbon Dioxide BUN Creatinine Glucose POC Glucose 157 H Lactic Acid 9.70 H* 9.10 H* Calcium Ionized Calcium Phosphorus Magnesium Direct Bilirubin AST ALT Alkaline Phosphatase Lactate Dehydrogenase Troponin T C-Reactive Protein Total Protein Albumin Prealbumin Triglycerides Cholesterol LDL Cholesterol Direct HDL Cholesterol 25-OH Vitamin D Total PTH Intact Urine pH Urine WBC (Auto) Urine Creatinine Urine Total Protein Fluid Total Protein Vancomycin Trough Rheumatoid Factor Complement C4 Miscellaneous Test Crossmatch 01/08/17 01/08/17 01/09/17 17:19 23:12 04:40 WBC RBC Hgb Hct MCV MCH MCHC RDW Plt Count Lymph % (Auto) [place] % (Auto) Lymph # [place] # Baso # Seg Neutrophils % Seg Neuts % (Manual) Lymphocytes % (Manual) Monocytes % (Manual) Eosinophils % (Manual) Basophils % (Manual) Nucleated RBC % Seg Neutrophils # Seg Neutrophils # Man Lymphocytes # (Manual) Monocytes # (Manual) Eosinophils # (Manual) Basophils # (Manual) PT INR Fibrinogen dRVVT Confirm Interp Factor V Activity POC ABG pH POC ABG pCO2 POC ABG pO2 ABG pO2 ABG HCO3 ABG Base Excess ABG Hemoglobin Oxyhemoglobin Sodium 147 H Potassium Chloride Carbon Dioxide BUN 82 H Creatinine 1.8 H Glucose 137 H POC Glucose 164 H 157 H Lactic Acid Calcium Ionized Calcium Phosphorus Magnesium Direct Bilirubin AST ALT Alkaline Phosphatase Lactate Dehydrogenase Troponin T C-Reactive Protein Total Protein Albumin Prealbumin Triglycerides Cholesterol LDL Cholesterol Direct HDL Cholesterol 25-OH Vitamin D Total PTH Intact Urine pH Urine WBC (Auto) Urine Creatinine Urine Total Protein Fluid Total Protein Vancomycin Trough Rheumatoid Factor Complement C4 Miscellaneous Test Crossmatch 01/09/17 01/09/17 01/09/17 05:42 08:22 10:57 WBC RBC Hgb Hct MCV MCH MCHC RDW Plt Count Lymph % (Auto) [place] % (Auto) Lymph # [place] # Baso # Seg Neutrophils % Seg Neuts % (Manual) Lymphocytes % (Manual) Monocytes % (Manual) Eosinophils % (Manual) Basophils % (Manual) Nucleated RBC % Seg Neutrophils # Seg Neutrophils # Man Lymphocytes # (Manual) Monocytes # (Manual) Eosinophils # (Manual) Basophils # (Manual) PT INR Fibrinogen dRVVT Confirm Interp Factor V Activity POC ABG pH POC ABG pCO2 POC ABG pO2 ABG pO2 ABG HCO3 ABG Base Excess ABG Hemoglobin Oxyhemoglobin Sodium Potassium Chloride Carbon Dioxide BUN Creatinine Glucose POC Glucose 156 H 122 H Lactic Acid 2.30 H* Calcium Ionized Calcium Phosphorus Magnesium Direct Bilirubin AST ALT Alkaline Phosphatase Lactate Dehydrogenase Troponin T C-Reactive Protein Total Protein Albumin Prealbumin Triglycerides Cholesterol LDL Cholesterol Direct HDL Cholesterol 25-OH Vitamin D Total PTH Intact Urine pH Urine WBC (Auto) Urine Creatinine Urine Total Protein Fluid Total Protein Vancomycin Trough Rheumatoid Factor Complement C4 Miscellaneous Test Crossmatch 01/09/17 01/09/17 01/09/17 13:30 17:14 18:45 WBC RBC Hgb Hct MCV MCH MCHC RDW Plt Count Lymph % (Auto) [place] % (Auto) Lymph # [place] # Baso # Seg Neutrophils % Seg Neuts % (Manual) Lymphocytes % (Manual) Monocytes % (Manual) Eosinophils % (Manual) Basophils % (Manual) Nucleated RBC % Seg Neutrophils # Seg Neutrophils # Man Lymphocytes # (Manual) Monocytes # (Manual) Eosinophils # (Manual) Basophils # (Manual) PT INR Fibrinogen dRVVT Confirm Interp Factor V Activity POC ABG pH POC ABG pCO2 POC ABG pO2 ABG pO2 ABG HCO3 ABG Base Excess ABG Hemoglobin Oxyhemoglobin Sodium Potassium Chloride Carbon Dioxide BUN Creatinine Glucose POC Glucose 127 H Lactic Acid Calcium Ionized Calcium Phosphorus Magnesium Direct Bilirubin AST ALT Alkaline Phosphatase Lactate Dehydrogenase Troponin T C-Reactive Protein 24.70 H Total Protein Albumin Prealbumin Triglycerides Cholesterol LDL Cholesterol Direct HDL Cholesterol 25-OH Vitamin D Total PTH Intact Urine pH Urine WBC (Auto) Urine Creatinine Urine Total Protein Fluid Total Protein Vancomycin Trough Rheumatoid Factor Complement C4 Miscellaneous Test Flexitest 1 H Crossmatch 01/10/17 01/10/17 01/10/17 01:21 04:00 04:00 WBC 18.1 H RBC 3.22 L Hgb 8.8 L Hct 27.0 L D MCV MCH 27 L MCHC RDW 17.0 H Plt Count Lymph % (Auto) [place] % (Auto) Lymph # [place] # Baso # Seg Neutrophils % Seg Neuts % (Manual) Lymphocytes % (Manual) Monocytes % (Manual) Eosinophils % (Manual) Basophils % (Manual) Nucleated RBC % Seg Neutrophils # Seg Neutrophils # Man Lymphocytes # (Manual) Monocytes # (Manual) Eosinophils # (Manual) Basophils # (Manual) PT INR Fibrinogen dRVVT Confirm Interp Factor V Activity POC ABG pH POC ABG pCO2 POC ABG pO2 ABG pO2 ABG HCO3 ABG Base Excess ABG Hemoglobin Oxyhemoglobin Sodium Potassium Chloride Carbon Dioxide BUN 59 H Creatinine 1.3 H Glucose 122 H POC Glucose 160 H Lactic Acid Calcium Ionized Calcium Phosphorus Magnesium Direct Bilirubin AST ALT Alkaline Phosphatase Lactate Dehydrogenase Troponin T C-Reactive Protein Total Protein Albumin Prealbumin Triglycerides Cholesterol LDL Cholesterol Direct HDL Cholesterol 25-OH Vitamin D Total PTH Intact Urine pH Urine WBC (Auto) Urine Creatinine Urine Total Protein Fluid Total Protein Vancomycin Trough Rheumatoid Factor Complement C4 Miscellaneous Test Crossmatch 01/10/17 01/10/17 01/10/17 05:36 12:14 17:55 WBC RBC Hgb Hct MCV MCH MCHC RDW Plt Count Lymph % (Auto) [place] % (Auto) Lymph # [place] # Baso # Seg Neutrophils % Seg Neuts % (Manual) Lymphocytes % (Manual) Monocytes % (Manual) Eosinophils % (Manual) Basophils % (Manual) Nucleated RBC % Seg Neutrophils # Seg Neutrophils # Man Lymphocytes # (Manual) Monocytes # (Manual) Eosinophils # (Manual) Basophils # (Manual) PT INR Fibrinogen dRVVT Confirm Interp Factor V Activity POC ABG pH POC ABG pCO2 POC ABG pO2 ABG pO2 ABG HCO3 ABG Base Excess ABG Hemoglobin Oxyhemoglobin Sodium Potassium Chloride Carbon Dioxide BUN Creatinine Glucose POC Glucose 163 H 120 H 144 H Lactic Acid Calcium Ionized Calcium Phosphorus Magnesium Direct Bilirubin AST ALT Alkaline Phosphatase Lactate Dehydrogenase Troponin T C-Reactive Protein Total Protein Albumin Prealbumin Triglycerides Cholesterol LDL Cholesterol Direct HDL Cholesterol 25-OH Vitamin D Total PTH Intact Urine pH Urine WBC (Auto) Urine Creatinine Urine Total Protein Fluid Total Protein Vancomycin Trough Rheumatoid Factor Complement C4 Miscellaneous Test Crossmatch 01/11/17 01/11/17 01/11/17 00:09 04:00 04:00 WBC 15.8 H RBC 3.04 L Hgb 8.2 L Hct 25.5 L MCV MCH 27 L MCHC RDW 17.3 H Plt Count Lymph % (Auto) [place] % (Auto) Lymph # [place] # Baso # Seg Neutrophils % Seg Neuts % (Manual) Lymphocytes % (Manual) Monocytes % (Manual) Eosinophils % (Manual) Basophils % (Manual) Nucleated RBC % Seg Neutrophils # Seg Neutrophils # Man Lymphocytes # (Manual) Monocytes # (Manual) Eosinophils # (Manual) Basophils # (Manual) PT INR Fibrinogen dRVVT Confirm Interp Factor V Activity POC ABG pH POC ABG pCO2 POC ABG pO2 ABG pO2 ABG HCO3 ABG Base Excess ABG Hemoglobin Oxyhemoglobin Sodium Potassium Chloride Carbon Dioxide BUN 78 H Creatinine 1.6 H Glucose 109 H POC Glucose 122 H Lactic Acid Calcium Ionized Calcium Phosphorus Magnesium Direct Bilirubin AST ALT Alkaline Phosphatase Lactate Dehydrogenase Troponin T C-Reactive Protein Total Protein Albumin Prealbumin Triglycerides Cholesterol LDL Cholesterol Direct HDL Cholesterol 25-OH Vitamin D Total PTH Intact Urine pH Urine WBC (Auto) Urine Creatinine Urine Total Protein Fluid Total Protein Vancomycin Trough Rheumatoid Factor Complement C4 Miscellaneous Test Crossmatch 01/11/17 01/11/17 01/11/17 12:46 18:23 23:42 WBC RBC Hgb Hct MCV MCH MCHC RDW Plt Count Lymph % (Auto) [place] % (Auto) Lymph # [place] # Baso # Seg Neutrophils % Seg Neuts % (Manual) Lymphocytes % (Manual) Monocytes % (Manual) Eosinophils % (Manual) Basophils % (Manual) Nucleated RBC % Seg Neutrophils # Seg Neutrophils # Man Lymphocytes # (Manual) Monocytes # (Manual) Eosinophils # (Manual) Basophils # (Manual) PT INR Fibrinogen dRVVT Confirm Interp Factor V Activity POC ABG pH POC ABG pCO2 POC ABG pO2 ABG pO2 ABG HCO3 ABG Base Excess ABG Hemoglobin Oxyhemoglobin Sodium Potassium Chloride Carbon Dioxide BUN Creatinine Glucose POC Glucose 148 H 125 H 124 H Lactic Acid Calcium Ionized Calcium Phosphorus Magnesium Direct Bilirubin AST ALT Alkaline Phosphatase Lactate Dehydrogenase Troponin T C-Reactive Protein Total Protein Albumin Prealbumin Triglycerides Cholesterol LDL Cholesterol Direct HDL Cholesterol 25-OH Vitamin D Total PTH Intact Urine pH Urine WBC (Auto) Urine Creatinine Urine Total Protein Fluid Total Protein Vancomycin Trough Rheumatoid Factor Complement C4 Miscellaneous Test Crossmatch 01/12/17 01/12/17 01/12/17 04:30 04:30 05:47 WBC 15.8 H RBC 3.31 L Hgb 8.9 L Hct 27.9 L MCV MCH 27 L MCHC RDW 17.4 H Plt Count Lymph % (Auto) [place] % (Auto) Lymph # [place] # Baso # Seg Neutrophils % Seg Neuts % (Manual) Lymphocytes % (Manual) Monocytes % (Manual) Eosinophils % (Manual) Basophils % (Manual) Nucleated RBC % Seg Neutrophils # Seg Neutrophils # Man Lymphocytes # (Manual) Monocytes # (Manual) Eosinophils # (Manual) Basophils # (Manual) PT INR Fibrinogen dRVVT Confirm Interp Factor V Activity POC ABG pH POC ABG pCO2 POC ABG pO2 ABG pO2 ABG HCO3 ABG Base Excess ABG Hemoglobin Oxyhemoglobin Sodium Potassium Chloride Carbon Dioxide BUN 57 H Creatinine Glucose 121 H POC Glucose 110 H Lactic Acid Calcium Ionized Calcium Phosphorus 2.10 L Magnesium Direct Bilirubin AST ALT Alkaline Phosphatase Lactate Dehydrogenase Troponin T C-Reactive Protein Total Protein Albumin Prealbumin Triglycerides Cholesterol LDL Cholesterol Direct HDL Cholesterol 25-OH Vitamin D Total PTH Intact Urine pH Urine WBC (Auto) Urine Creatinine Urine Total Protein Fluid Total Protein Vancomycin Trough Rheumatoid Factor Complement C4 Miscellaneous Test Crossmatch 01/12/17 01/12/17 01/12/17 11:35 17:45 23:14 WBC RBC Hgb Hct MCV MCH MCHC RDW Plt Count Lymph % (Auto) [place] % (Auto) Lymph # [place] # Baso # Seg Neutrophils % Seg Neuts % (Manual) Lymphocytes % (Manual) Monocytes % (Manual) Eosinophils % (Manual) Basophils % (Manual) Nucleated RBC % Seg Neutrophils # Seg Neutrophils # Man Lymphocytes # (Manual) Monocytes # (Manual) Eosinophils # (Manual) Basophils # (Manual) PT INR Fibrinogen dRVVT Confirm Interp Factor V Activity POC ABG pH POC ABG pCO2 POC ABG pO2 ABG pO2 ABG HCO3 ABG Base Excess ABG Hemoglobin Oxyhemoglobin Sodium Potassium Chloride Carbon Dioxide BUN Creatinine Glucose POC Glucose 146 H 117 H 123 H Lactic Acid Calcium Ionized Calcium Phosphorus Magnesium Direct Bilirubin AST ALT Alkaline Phosphatase Lactate Dehydrogenase Troponin T C-Reactive Protein Total Protein Albumin Prealbumin Triglycerides Cholesterol LDL Cholesterol Direct HDL Cholesterol 25-OH Vitamin D Total PTH Intact Urine pH Urine WBC (Auto) Urine Creatinine Urine Total Protein Fluid Total Protein Vancomycin Trough Rheumatoid Factor Complement C4 Miscellaneous Test Crossmatch 01/13/17 01/13/17 01/13/17 05:32 06:00 12:10 WBC RBC Hgb Hct MCV MCH MCHC RDW Plt Count Lymph % (Auto) [place] % (Auto) Lymph # [place] # Baso # Seg Neutrophils % Seg Neuts % (Manual) Lymphocytes % (Manual) Monocytes % (Manual) Eosinophils % (Manual) Basophils % (Manual) Nucleated RBC % Seg Neutrophils # Seg Neutrophils # Man Lymphocytes # (Manual) Monocytes # (Manual) Eosinophils # (Manual) Basophils # (Manual) PT INR Fibrinogen dRVVT Confirm Interp Factor V Activity POC ABG pH POC ABG pCO2 POC ABG pO2 ABG pO2 ABG HCO3 ABG Base Excess ABG Hemoglobin Oxyhemoglobin Sodium Potassium Chloride Carbon Dioxide BUN 80 H Creatinine 1.4 H Glucose 106 H POC Glucose 106 H Lactic Acid Calcium Ionized Calcium Phosphorus Magnesium Direct Bilirubin AST ALT Alkaline Phosphatase Lactate Dehydrogenase Troponin T C-Reactive Protein Total Protein Albumin Prealbumin Triglycerides Cholesterol LDL Cholesterol Direct HDL Cholesterol 25-OH Vitamin D Total PTH Intact Urine pH Urine WBC (Auto) Urine Creatinine Urine Total Protein Fluid Total Protein 3.0 L Vancomycin Trough Rheumatoid Factor Complement C4 Miscellaneous Test Crossmatch 01/13/17 01/13/17 01/13/17 12:17 15:50 17:30 WBC RBC Hgb Hct MCV MCH MCHC RDW Plt Count Lymph % (Auto) [place] % (Auto) Lymph # [place] # Baso # Seg Neutrophils % Seg Neuts % (Manual) Lymphocytes % (Manual) Monocytes % (Manual) Eosinophils % (Manual) Basophils % (Manual) Nucleated RBC % Seg Neutrophils # Seg Neutrophils # Man Lymphocytes # (Manual) Monocytes # (Manual) Eosinophils # (Manual) Basophils # (Manual) PT 15.4 H INR 1.16 H Fibrinogen dRVVT Confirm Interp Factor V Activity POC ABG pH POC ABG pCO2 POC ABG pO2 ABG pO2 ABG HCO3 ABG Base Excess ABG Hemoglobin Oxyhemoglobin Sodium Potassium Chloride Carbon Dioxide BUN Creatinine Glucose POC Glucose 168 H 110 H Lactic Acid Calcium Ionized Calcium Phosphorus Magnesium Direct Bilirubin AST ALT Alkaline Phosphatase Lactate Dehydrogenase Troponin T C-Reactive Protein Total Protein Albumin Prealbumin Triglycerides Cholesterol LDL Cholesterol Direct HDL Cholesterol 25-OH Vitamin D Total PTH Intact Urine pH Urine WBC (Auto) Urine Creatinine Urine Total Protein Fluid Total Protein Vancomycin Trough Rheumatoid Factor Complement C4 Miscellaneous Test Crossmatch 01/13/17 01/14/17 01/14/17 23:42 05:24 05:30 WBC RBC Hgb Hct MCV MCH MCHC RDW Plt Count Lymph % (Auto) [place] % (Auto) Lymph # [place] # Baso # Seg Neutrophils % Seg Neuts % (Manual) Lymphocytes % (Manual) Monocytes % (Manual) Eosinophils % (Manual) Basophils % (Manual) Nucleated RBC % Seg Neutrophils # Seg Neutrophils # Man Lymphocytes # (Manual) Monocytes # (Manual) Eosinophils # (Manual) Basophils # (Manual) PT INR Fibrinogen dRVVT Confirm Interp Factor V Activity POC ABG pH POC ABG pCO2 POC ABG pO2 ABG pO2 ABG HCO3 ABG Base Excess ABG Hemoglobin Oxyhemoglobin Sodium Potassium Chloride Carbon Dioxide BUN 58 H Creatinine Glucose 114 H POC Glucose 155 H 121 H Lactic Acid Calcium Ionized Calcium Phosphorus Magnesium Direct Bilirubin AST ALT Alkaline Phosphatase Lactate Dehydrogenase Troponin T C-Reactive Protein Total Protein Albumin Prealbumin Triglycerides Cholesterol LDL Cholesterol Direct HDL Cholesterol 25-OH Vitamin D Total PTH Intact Urine pH Urine WBC (Auto) Urine Creatinine Urine Total Protein Fluid Total Protein Vancomycin Trough Rheumatoid Factor Complement C4 Miscellaneous Test Crossmatch 01/14/17 01/14/17 01/15/17 12:48 17:36 00:15 WBC RBC Hgb Hct MCV MCH MCHC RDW Plt Count Lymph % (Auto) [place] % (Auto) Lymph # [place] # Baso # Seg Neutrophils % Seg Neuts % (Manual) Lymphocytes % (Manual) Monocytes % (Manual) Eosinophils % (Manual) Basophils % (Manual) Nucleated RBC % Seg Neutrophils # Seg Neutrophils # Man Lymphocytes # (Manual) Monocytes # (Manual) Eosinophils # (Manual) Basophils # (Manual) PT INR Fibrinogen dRVVT Confirm Interp Factor V Activity POC ABG pH POC ABG pCO2 POC ABG pO2 ABG pO2 ABG HCO3 ABG Base Excess ABG Hemoglobin Oxyhemoglobin Sodium Potassium Chloride Carbon Dioxide BUN Creatinine Glucose POC Glucose 130 H 135 H 132 H Lactic Acid Calcium Ionized Calcium Phosphorus Magnesium Direct Bilirubin AST ALT Alkaline Phosphatase Lactate Dehydrogenase Troponin T C-Reactive Protein Total Protein Albumin Prealbumin Triglycerides Cholesterol LDL Cholesterol Direct HDL Cholesterol 25-OH Vitamin D Total PTH Intact Urine pH Urine WBC (Auto) Urine Creatinine Urine Total Protein Fluid Total Protein Vancomycin Trough Rheumatoid Factor Complement C4 Miscellaneous Test Crossmatch 01/15/17 01/15/17 01/15/17 05:01 11:55 12:45 WBC 16.2 H RBC 3.00 L Hgb 8.1 L Hct 25.4 L MCV MCH 27 L MCHC RDW 17.6 H Plt Count Lymph % (Auto) 11.7 L [place] % (Auto) 7.8 H Lymph # [place] # 1.3 H Baso # Seg Neutrophils % 80.1 H Seg Neuts % (Manual) Lymphocytes % (Manual) Monocytes % (Manual) Eosinophils % (Manual) Basophils % (Manual) Nucleated RBC % Seg Neutrophils # 13.0 H Seg Neutrophils # Man Lymphocytes # (Manual) Monocytes # (Manual) Eosinophils # (Manual) Basophils # (Manual) PT INR Fibrinogen dRVVT Confirm Interp Factor V Activity POC ABG pH POC ABG pCO2 POC ABG pO2 ABG pO2 ABG HCO3 ABG Base Excess ABG Hemoglobin Oxyhemoglobin Sodium Potassium Chloride Carbon Dioxide BUN Creatinine Glucose POC Glucose 126 H 125 H Lactic Acid Calcium Ionized Calcium Phosphorus Magnesium Direct Bilirubin AST ALT Alkaline Phosphatase Lactate Dehydrogenase Troponin T C-Reactive Protein Total Protein Albumin Prealbumin Triglycerides Cholesterol LDL Cholesterol Direct HDL Cholesterol 25-OH Vitamin D Total PTH Intact Urine pH Urine WBC (Auto) Urine Creatinine Urine Total Protein Fluid Total Protein Vancomycin Trough Rheumatoid Factor Complement C4 Miscellaneous Test Crossmatch 01/15/17 01/15/17 01/15/17 12:45 17:31 23:39 WBC RBC Hgb Hct MCV MCH MCHC RDW Plt Count Lymph % (Auto) [place] % (Auto) Lymph # [place] # Baso # Seg Neutrophils % Seg Neuts % (Manual) Lymphocytes % (Manual) Monocytes % (Manual) Eosinophils % (Manual) Basophils % (Manual) Nucleated RBC % Seg Neutrophils # Seg Neutrophils # Man Lymphocytes # (Manual) Monocytes # (Manual) Eosinophils # (Manual) Basophils # (Manual) PT INR Fibrinogen dRVVT Confirm Interp Factor V Activity POC ABG pH POC ABG pCO2 POC ABG pO2 ABG pO2 ABG HCO3 ABG Base Excess ABG Hemoglobin Oxyhemoglobin Sodium 136 L Potassium Chloride Carbon Dioxide BUN 87 H Creatinine 1.7 H Glucose 108 H POC Glucose 129 H 112 H Lactic Acid Calcium Ionized Calcium Phosphorus Magnesium Direct Bilirubin AST ALT Alkaline Phosphatase Lactate Dehydrogenase Troponin T C-Reactive Protein Total Protein Albumin Prealbumin Triglycerides Cholesterol LDL Cholesterol Direct HDL Cholesterol 25-OH Vitamin D Total PTH Intact Urine pH Urine WBC (Auto) Urine Creatinine Urine Total Protein Fluid Total Protein Vancomycin Trough Rheumatoid Factor Complement C4 Miscellaneous Test Crossmatch 01/16/17 01/16/17 01/16/17 05:23 11:42 12:32 WBC RBC Hgb Hct MCV MCH MCHC RDW Plt Count Lymph % (Auto) [place] % (Auto) Lymph # [place] # Baso # Seg Neutrophils % Seg Neuts % (Manual) Lymphocytes % (Manual) Monocytes % (Manual) Eosinophils % (Manual) Basophils % (Manual) Nucleated RBC % Seg Neutrophils # Seg Neutrophils # Man Lymphocytes # (Manual) Monocytes # (Manual) Eosinophils # (Manual) Basophils # (Manual) PT INR Fibrinogen dRVVT Confirm Interp Factor V Activity POC ABG pH 7.499 H POC ABG pCO2 30.9 L POC ABG pO2 51 L ABG pO2 ABG HCO3 ABG Base Excess ABG Hemoglobin Oxyhemoglobin Sodium Potassium Chloride Carbon Dioxide BUN Creatinine Glucose POC Glucose 118 H 133 H Lactic Acid Calcium Ionized Calcium Phosphorus Magnesium Direct Bilirubin AST ALT Alkaline Phosphatase Lactate Dehydrogenase Troponin T C-Reactive Protein Total Protein Albumin Prealbumin Triglycerides Cholesterol LDL Cholesterol Direct HDL Cholesterol 25-OH Vitamin D Total PTH Intact Urine pH Urine WBC (Auto) Urine Creatinine Urine Total Protein Fluid Total Protein Vancomycin Trough Rheumatoid Factor Complement C4 Miscellaneous Test Crossmatch 01/16/17 01/16/17 01/16/17 17:52 23:57 Unknown WBC RBC Hgb Hct MCV MCH MCHC RDW Plt Count Lymph % (Auto) [place] % (Auto) Lymph # [place] # Baso # Seg Neutrophils % Seg Neuts % (Manual) Lymphocytes % (Manual) Monocytes % (Manual) Eosinophils % (Manual) Basophils % (Manual) Nucleated RBC % Seg Neutrophils # Seg Neutrophils # Man Lymphocytes # (Manual) Monocytes # (Manual) Eosinophils # (Manual) Basophils # (Manual) PT INR Fibrinogen dRVVT Confirm Interp Factor V Activity POC ABG pH POC ABG pCO2 POC ABG pO2 ABG pO2 ABG HCO3 ABG Base Excess ABG Hemoglobin Oxyhemoglobin Sodium 135 L Potassium Chloride Carbon Dioxide BUN 101 H Creatinine 1.8 H Glucose 117 H POC Glucose 130 H 143 H Lactic Acid Calcium Ionized Calcium Phosphorus 5.80 H Magnesium Direct Bilirubin AST ALT Alkaline Phosphatase Lactate Dehydrogenase Troponin T C-Reactive Protein Total Protein Albumin Prealbumin Triglycerides Cholesterol LDL Cholesterol Direct HDL Cholesterol 25-OH Vitamin D Total PTH Intact Urine pH Urine WBC (Auto) Urine Creatinine Urine Total Protein Fluid Total Protein Vancomycin Trough Rheumatoid Factor Complement C4 Miscellaneous Test Crossmatch 01/17/17 01/17/17 01/17/17 05:30 05:46 11:49 WBC RBC Hgb Hct MCV MCH MCHC RDW Plt Count Lymph % (Auto) [place] % (Auto) Lymph # [place] # Baso # Seg Neutrophils % Seg Neuts % (Manual) Lymphocytes % (Manual) Monocytes % (Manual) Eosinophils % (Manual) Basophils % (Manual) Nucleated RBC % Seg Neutrophils # Seg Neutrophils # Man Lymphocytes # (Manual) Monocytes # (Manual) Eosinophils # (Manual) Basophils # (Manual) PT INR Fibrinogen dRVVT Confirm Interp Factor V Activity POC ABG pH POC ABG pCO2 POC ABG pO2 ABG pO2 ABG HCO3 ABG Base Excess ABG Hemoglobin Oxyhemoglobin Sodium 134 L Potassium Chloride 95.8 L Carbon Dioxide BUN 66 H Creatinine 1.3 H Glucose 138 H POC Glucose 147 H 124 H Lactic Acid Calcium Ionized Calcium Phosphorus Magnesium Direct Bilirubin AST ALT Alkaline Phosphatase 254 H Lactate Dehydrogenase Troponin T C-Reactive Protein Total Protein Albumin 1.3 L Prealbumin Triglycerides Cholesterol LDL Cholesterol Direct HDL Cholesterol 25-OH Vitamin D Total PTH Intact Urine pH Urine WBC (Auto) Urine Creatinine Urine Total Protein Fluid Total Protein Vancomycin Trough Rheumatoid Factor Complement C4 Miscellaneous Test Crossmatch 01/17/17 01/17/17 01/18/17 17:30 23:41 05:15 WBC RBC Hgb Hct MCV MCH MCHC RDW Plt Count Lymph % (Auto) [place] % (Auto) Lymph # [place] # Baso # Seg Neutrophils % Seg Neuts % (Manual) Lymphocytes % (Manual) Monocytes % (Manual) Eosinophils % (Manual) Basophils % (Manual) Nucleated RBC % Seg Neutrophils # Seg Neutrophils # Man Lymphocytes # (Manual) Monocytes # (Manual) Eosinophils # (Manual) Basophils # (Manual) PT INR Fibrinogen dRVVT Confirm Interp Factor V Activity POC ABG pH POC ABG pCO2 POC ABG pO2 ABG pO2 ABG HCO3 ABG Base Excess ABG Hemoglobin Oxyhemoglobin Sodium Potassium Chloride Carbon Dioxide BUN 89 H Creatinine 1.7 H Glucose 118 H POC Glucose 137 H 119 H Lactic Acid Calcium Ionized Calcium Phosphorus Magnesium Direct Bilirubin AST ALT Alkaline Phosphatase Lactate Dehydrogenase Troponin T C-Reactive Protein Total Protein Albumin Prealbumin Triglycerides Cholesterol LDL Cholesterol Direct HDL Cholesterol 25-OH Vitamin D Total PTH Intact Urine pH Urine WBC (Auto) Urine Creatinine Urine Total Protein Fluid Total Protein Vancomycin Trough Rheumatoid Factor Complement C4 Miscellaneous Test Crossmatch 01/18/17 01/18/17 01/18/17 05:19 12:16 18:11 WBC RBC Hgb Hct MCV MCH MCHC RDW Plt Count Lymph % (Auto) [place] % (Auto) Lymph # [place] # Baso # Seg Neutrophils % Seg Neuts % (Manual) Lymphocytes % (Manual) Monocytes % (Manual) Eosinophils % (Manual) Basophils % (Manual) Nucleated RBC % Seg Neutrophils # Seg Neutrophils # Man Lymphocytes # (Manual) Monocytes # (Manual) Eosinophils # (Manual) Basophils # (Manual) PT INR Fibrinogen dRVVT Confirm Interp Factor V Activity POC ABG pH POC ABG pCO2 POC ABG pO2 ABG pO2 ABG HCO3 ABG Base Excess ABG Hemoglobin Oxyhemoglobin Sodium Potassium Chloride Carbon Dioxide BUN Creatinine Glucose POC Glucose 134 H 188 H 113 H Lactic Acid Calcium Ionized Calcium Phosphorus Magnesium Direct Bilirubin AST ALT Alkaline Phosphatase Lactate Dehydrogenase Troponin T C-Reactive Protein Total Protein Albumin Prealbumin Triglycerides Cholesterol LDL Cholesterol Direct HDL Cholesterol 25-OH Vitamin D Total PTH Intact Urine pH Urine WBC (Auto) Urine Creatinine Urine Total Protein Fluid Total Protein Vancomycin Trough Rheumatoid Factor Complement C4 Miscellaneous Test Crossmatch 01/19/17 01/19/17 01/19/17 00:00 05:30 05:36 WBC RBC Hgb Hct MCV MCH MCHC RDW Plt Count Lymph % (Auto) [place] % (Auto) Lymph # [place] # Baso # Seg Neutrophils % Seg Neuts % (Manual) Lymphocytes % (Manual) Monocytes % (Manual) Eosinophils % (Manual) Basophils % (Manual) Nucleated RBC % Seg Neutrophils # Seg Neutrophils # Man Lymphocytes # (Manual) Monocytes # (Manual) Eosinophils # (Manual) Basophils # (Manual) PT INR Fibrinogen dRVVT Confirm Interp Factor V Activity POC ABG pH POC ABG pCO2 POC ABG pO2 ABG pO2 ABG HCO3 ABG Base Excess ABG Hemoglobin Oxyhemoglobin Sodium Potassium Chloride Carbon Dioxide BUN 70 H Creatinine 1.5 H Glucose 121 H POC Glucose 137 H 155 H Lactic Acid Calcium Ionized Calcium Phosphorus 2.10 L D Magnesium Direct Bilirubin AST ALT Alkaline Phosphatase Lactate Dehydrogenase Troponin T C-Reactive Protein Total Protein Albumin Prealbumin Triglycerides Cholesterol LDL Cholesterol Direct HDL Cholesterol 25-OH Vitamin D Total PTH Intact Urine pH Urine WBC (Auto) Urine Creatinine Urine Total Protein Fluid Total Protein Vancomycin Trough Rheumatoid Factor Complement C4 Miscellaneous Test Crossmatch 01/19/17 01/19/17 01/19/17 11:59 15:32 17:57 WBC RBC Hgb Hct MCV MCH MCHC RDW Plt Count Lymph % (Auto) [place] % (Auto) Lymph # [place] # Baso # Seg Neutrophils % Seg Neuts % (Manual) Lymphocytes % (Manual) Monocytes % (Manual) Eosinophils % (Manual) Basophils % (Manual) Nucleated RBC % Seg Neutrophils # Seg Neutrophils # Man Lymphocytes # (Manual) Monocytes # (Manual) Eosinophils # (Manual) Basophils # (Manual) PT INR Fibrinogen dRVVT Confirm Interp Factor V Activity POC ABG pH POC ABG pCO2 33.1 L POC ABG pO2 76 L ABG pO2 ABG HCO3 ABG Base Excess ABG Hemoglobin Oxyhemoglobin Sodium Potassium Chloride Carbon Dioxide BUN Creatinine Glucose POC Glucose 156 H 129 H Lactic Acid Calcium Ionized Calcium Phosphorus Magnesium Direct Bilirubin AST ALT Alkaline Phosphatase Lactate Dehydrogenase Troponin T C-Reactive Protein Total Protein Albumin Prealbumin Triglycerides Cholesterol LDL Cholesterol Direct HDL Cholesterol 25-OH Vitamin D Total PTH Intact Urine pH Urine WBC (Auto) Urine Creatinine Urine Total Protein Fluid Total Protein Vancomycin Trough Rheumatoid Factor Complement C4 Miscellaneous Test Crossmatch 01/19/17 01/20/17 01/20/17 23:49 04:00 05:21 WBC RBC Hgb Hct MCV MCH MCHC RDW Plt Count Lymph % (Auto) [place] % (Auto) Lymph # [place] # Baso # Seg Neutrophils % Seg Neuts % (Manual) Lymphocytes % (Manual) Monocytes % (Manual) Eosinophils % (Manual) Basophils % (Manual) Nucleated RBC % Seg Neutrophils # Seg Neutrophils # Man Lymphocytes # (Manual) Monocytes # (Manual) Eosinophils # (Manual) Basophils # (Manual) PT INR Fibrinogen dRVVT Confirm Interp Factor V Activity POC ABG pH POC ABG pCO2 POC ABG pO2 ABG pO2 ABG HCO3 ABG Base Excess ABG Hemoglobin Oxyhemoglobin Sodium Potassium Chloride Carbon Dioxide BUN 96 H Creatinine 1.9 H Glucose 106 H POC Glucose 125 H 130 H Lactic Acid Calcium Ionized Calcium Phosphorus 2.40 L Magnesium Direct Bilirubin AST ALT Alkaline Phosphatase Lactate Dehydrogenase Troponin T C-Reactive Protein Total Protein Albumin Prealbumin Triglycerides Cholesterol LDL Cholesterol Direct HDL Cholesterol 25-OH Vitamin D Total PTH Intact Urine pH Urine WBC (Auto) Urine Creatinine Urine Total Protein Fluid Total Protein Vancomycin Trough Rheumatoid Factor Complement C4 Miscellaneous Test Crossmatch 01/20/17 01/20/17 01/20/17 11:58 12:17 17:26 WBC RBC Hgb Hct MCV MCH MCHC RDW Plt Count Lymph % (Auto) [place] % (Auto) Lymph # [place] # Baso # Seg Neutrophils % Seg Neuts % (Manual) Lymphocytes % (Manual) Monocytes % (Manual) Eosinophils % (Manual) Basophils % (Manual) Nucleated RBC % Seg Neutrophils # Seg Neutrophils # Man Lymphocytes # (Manual) Monocytes # (Manual) Eosinophils # (Manual) Basophils # (Manual) PT INR Fibrinogen dRVVT Confirm Interp Factor V Activity POC ABG pH POC ABG pCO2 POC ABG pO2 70 L ABG pO2 ABG HCO3 ABG Base Excess ABG Hemoglobin Oxyhemoglobin Sodium Potassium Chloride Carbon Dioxide BUN Creatinine Glucose POC Glucose 118 H 154 H Lactic Acid Calcium Ionized Calcium Phosphorus Magnesium Direct Bilirubin AST ALT Alkaline Phosphatase Lactate Dehydrogenase Troponin T C-Reactive Protein Total Protein Albumin Prealbumin Triglycerides Cholesterol LDL Cholesterol Direct HDL Cholesterol 25-OH Vitamin D Total PTH Intact Urine pH Urine WBC (Auto) Urine Creatinine Urine Total Protein Fluid Total Protein Vancomycin Trough Rheumatoid Factor Complement C4 Miscellaneous Test Crossmatch 01/21/17 01/21/17 01/21/17 04:00 04:56 11:46 WBC RBC Hgb Hct MCV MCH MCHC RDW Plt Count Lymph % (Auto) [place] % (Auto) Lymph # [place] # Baso # Seg Neutrophils % Seg Neuts % (Manual) Lymphocytes % (Manual) Monocytes % (Manual) Eosinophils % (Manual) Basophils % (Manual) Nucleated RBC % Seg Neutrophils # Seg Neutrophils # Man Lymphocytes # (Manual) Monocytes # (Manual) Eosinophils # (Manual) Basophils # (Manual) PT INR Fibrinogen dRVVT Confirm Interp Factor V Activity POC ABG pH POC ABG pCO2 POC ABG pO2 ABG pO2 ABG HCO3 ABG Base Excess ABG Hemoglobin Oxyhemoglobin Sodium Potassium 3.5 L Chloride 97.4 L Carbon Dioxide BUN 66 H Creatinine 1.4 H Glucose POC Glucose 116 H 106 H Lactic Acid Calcium Ionized Calcium Phosphorus 2.10 L Magnesium Direct Bilirubin AST ALT Alkaline Phosphatase Lactate Dehydrogenase Troponin T C-Reactive Protein Total Protein Albumin Prealbumin Triglycerides Cholesterol LDL Cholesterol Direct HDL Cholesterol 25-OH Vitamin D Total PTH Intact Urine pH Urine WBC (Auto) Urine Creatinine Urine Total Protein Fluid Total Protein Vancomycin Trough Rheumatoid Factor Complement C4 Miscellaneous Test Crossmatch 01/21/17 01/21/17 01/22/17 17:25 23:49 05:35 WBC RBC Hgb Hct MCV MCH MCHC RDW Plt Count Lymph % (Auto) [place] % (Auto) Lymph # [place] # Baso # Seg Neutrophils % Seg Neuts % (Manual) Lymphocytes % (Manual) Monocytes % (Manual) Eosinophils % (Manual) Basophils % (Manual) Nucleated RBC % Seg Neutrophils # Seg Neutrophils # Man Lymphocytes # (Manual) Monocytes # (Manual) Eosinophils # (Manual) Basophils # (Manual) PT INR Fibrinogen dRVVT Confirm Interp Factor V Activity POC ABG pH POC ABG pCO2 POC ABG pO2 ABG pO2 ABG HCO3 ABG Base Excess ABG Hemoglobin Oxyhemoglobin Sodium Potassium Chloride Carbon Dioxide BUN Creatinine Glucose POC Glucose 106 H 133 H 107 H Lactic Acid Calcium Ionized Calcium Phosphorus Magnesium Direct Bilirubin AST ALT Alkaline Phosphatase Lactate Dehydrogenase Troponin T C-Reactive Protein Total Protein Albumin Prealbumin Triglycerides Cholesterol LDL Cholesterol Direct HDL Cholesterol 25-OH Vitamin D Total PTH Intact Urine pH Urine WBC (Auto) Urine Creatinine Urine Total Protein Fluid Total Protein Vancomycin Trough Rheumatoid Factor Complement C4 Miscellaneous Test Crossmatch 01/22/17 01/22/17 01/22/17 07:20 07:20 11:31 WBC RBC 2.75 L Hgb 7.5 L Hct 22.7 L MCV MCH 27 L MCHC RDW 17.5 H Plt Count Lymph % (Auto) [place] % (Auto) Lymph # [place] # Baso # Seg Neutrophils % Seg Neuts % (Manual) Lymphocytes % (Manual) Monocytes % (Manual) Eosinophils % (Manual) Basophils % (Manual) Nucleated RBC % Seg Neutrophils # Seg Neutrophils # Man Lymphocytes # (Manual) Monocytes # (Manual) Eosinophils # (Manual) Basophils # (Manual) PT INR Fibrinogen dRVVT Confirm Interp Factor V Activity POC ABG pH POC ABG pCO2 POC ABG pO2 ABG pO2 ABG HCO3 ABG Base Excess ABG Hemoglobin Oxyhemoglobin Sodium Potassium 3.3 L Chloride Carbon Dioxide BUN 42 H Creatinine Glucose 105 H POC Glucose 124 H Lactic Acid Calcium Ionized Calcium Phosphorus 1.70 L Magnesium Direct Bilirubin AST ALT Alkaline Phosphatase Lactate Dehydrogenase Troponin T C-Reactive Protein Total Protein Albumin Prealbumin Triglycerides Cholesterol LDL Cholesterol Direct HDL Cholesterol 25-OH Vitamin D Total PTH Intact Urine pH Urine WBC (Auto) Urine Creatinine Urine Total Protein Fluid Total Protein Vancomycin Trough Rheumatoid Factor Complement C4 Miscellaneous Test Crossmatch 01/22/17 01/22/17 01/23/17 17:16 23:35 05:35 WBC RBC Hgb Hct MCV MCH MCHC RDW Plt Count Lymph % (Auto) [place] % (Auto) Lymph # [place] # Baso # Seg Neutrophils % Seg Neuts % (Manual) Lymphocytes % (Manual) Monocytes % (Manual) Eosinophils % (Manual) Basophils % (Manual) Nucleated RBC % Seg Neutrophils # Seg Neutrophils # Man Lymphocytes # (Manual) Monocytes # (Manual) Eosinophils # (Manual) Basophils # (Manual) PT INR Fibrinogen dRVVT Confirm Interp Factor V Activity POC ABG pH POC ABG pCO2 POC ABG pO2 ABG pO2 ABG HCO3 ABG Base Excess ABG Hemoglobin Oxyhemoglobin Sodium Potassium Chloride Carbon Dioxide BUN Creatinine Glucose POC Glucose 135 H 120 H 111 H Lactic Acid Calcium Ionized Calcium Phosphorus Magnesium Direct Bilirubin AST ALT Alkaline Phosphatase Lactate Dehydrogenase Troponin T C-Reactive Protein Total Protein Albumin Prealbumin Triglycerides Cholesterol LDL Cholesterol Direct HDL Cholesterol 25-OH Vitamin D Total PTH Intact Urine pH Urine WBC (Auto) Urine Creatinine Urine Total Protein Fluid Total Protein Vancomycin Trough Rheumatoid Factor Complement C4 Miscellaneous Test Crossmatch 01/23/17 01/23/17 01/23/17 06:10 17:27 23:44 WBC RBC Hgb Hct MCV MCH MCHC RDW Plt Count Lymph % (Auto) [place] % (Auto) Lymph # [place] # Baso # Seg Neutrophils % Seg Neuts % (Manual) Lymphocytes % (Manual) Monocytes % (Manual) Eosinophils % (Manual) Basophils % (Manual) Nucleated RBC % Seg Neutrophils # Seg Neutrophils # Man Lymphocytes # (Manual) Monocytes # (Manual) Eosinophils # (Manual) Basophils # (Manual) PT INR Fibrinogen dRVVT Confirm Interp Factor V Activity POC ABG pH POC ABG pCO2 POC ABG pO2 ABG pO2 ABG HCO3 ABG Base Excess ABG Hemoglobin Oxyhemoglobin Sodium Potassium 3.3 L Chloride Carbon Dioxide BUN 66 H Creatinine 1.3 H Glucose 109 H POC Glucose 120 H 115 H Lactic Acid Calcium Ionized Calcium Phosphorus 2.20 L D Magnesium Direct Bilirubin AST ALT Alkaline Phosphatase Lactate Dehydrogenase Troponin T C-Reactive Protein Total Protein Albumin Prealbumin Triglycerides Cholesterol LDL Cholesterol Direct HDL Cholesterol 25-OH Vitamin D Total PTH Intact Urine pH Urine WBC (Auto) Urine Creatinine Urine Total Protein Fluid Total Protein Vancomycin Trough Rheumatoid Factor Complement C4 Miscellaneous Test Crossmatch 01/24/17 01/24/17 01/24/17 05:19 05:50 12:19 WBC RBC Hgb Hct MCV MCH MCHC RDW Plt Count Lymph % (Auto) [place] % (Auto) Lymph # [place] # Baso # Seg Neutrophils % Seg Neuts % (Manual) Lymphocytes % (Manual) Monocytes % (Manual) Eosinophils % (Manual) Basophils % (Manual) Nucleated RBC % Seg Neutrophils # Seg Neutrophils # Man Lymphocytes # (Manual) Monocytes # (Manual) Eosinophils # (Manual) Basophils # (Manual) PT INR Fibrinogen dRVVT Confirm Interp Factor V Activity POC ABG pH POC ABG pCO2 POC ABG pO2 ABG pO2 ABG HCO3 ABG Base Excess ABG Hemoglobin Oxyhemoglobin Sodium Potassium Chloride Carbon Dioxide BUN 47 H Creatinine Glucose 117 H POC Glucose 126 H 119 H Lactic Acid Calcium Ionized Calcium Phosphorus 2.30 L Magnesium 1.60 L Direct Bilirubin AST ALT Alkaline Phosphatase Lactate Dehydrogenase Troponin T C-Reactive Protein Total Protein Albumin Prealbumin Triglycerides Cholesterol LDL Cholesterol Direct HDL Cholesterol 25-OH Vitamin D Total PTH Intact Urine pH Urine WBC (Auto) Urine Creatinine Urine Total Protein Fluid Total Protein Vancomycin Trough Rheumatoid Factor Complement C4 Miscellaneous Test Crossmatch 01/24/17 01/25/17 01/25/17 17:08 00:37 04:00 WBC RBC Hgb Hct MCV MCH MCHC RDW Plt Count Lymph % (Auto) [place] % (Auto) Lymph # [place] # Baso # Seg Neutrophils % Seg Neuts % (Manual) Lymphocytes % (Manual) Monocytes % (Manual) Eosinophils % (Manual) Basophils % (Manual) Nucleated RBC % Seg Neutrophils # Seg Neutrophils # Man Lymphocytes # (Manual) Monocytes # (Manual) Eosinophils # (Manual) Basophils # (Manual) PT INR Fibrinogen dRVVT Confirm Interp Factor V Activity POC ABG pH POC ABG pCO2 POC ABG pO2 ABG pO2 ABG HCO3 ABG Base Excess ABG Hemoglobin Oxyhemoglobin Sodium Potassium Chloride Carbon Dioxide BUN 72 H Creatinine 1.3 H Glucose POC Glucose 127 H 110 H Lactic Acid Calcium Ionized Calcium Phosphorus Magnesium Direct Bilirubin AST ALT Alkaline Phosphatase Lactate Dehydrogenase Troponin T C-Reactive Protein Total Protein Albumin Prealbumin Triglycerides Cholesterol LDL Cholesterol Direct HDL Cholesterol 25-OH Vitamin D Total PTH Intact Urine pH Urine WBC (Auto) Urine Creatinine Urine Total Protein Fluid Total Protein Vancomycin Trough Rheumatoid Factor Complement C4 Miscellaneous Test Crossmatch 01/25/17 01/25/17 01/25/17 04:00 11:15 13:05 WBC RBC 2.49 L Hgb 6.7 L Hct 20.9 L MCV MCH 27 L MCHC RDW 18.8 H Plt Count Lymph % (Auto) [place] % (Auto) 10.1 H Lymph # [place] # 1.0 H Baso # Seg Neutrophils % Seg Neuts % (Manual) Lymphocytes % (Manual) Monocytes % (Manual) Eosinophils % (Manual) Basophils % (Manual) Nucleated RBC % Seg Neutrophils # Seg Neutrophils # Man Lymphocytes # (Manual) Monocytes # (Manual) Eosinophils # (Manual) Basophils # (Manual) PT INR Fibrinogen dRVVT Confirm Interp Factor V Activity POC ABG pH POC ABG pCO2 POC ABG pO2 ABG pO2 ABG HCO3 ABG Base Excess ABG Hemoglobin Oxyhemoglobin Sodium Potassium Chloride Carbon Dioxide BUN Creatinine Glucose POC Glucose 128 H Lactic Acid Calcium Ionized Calcium Phosphorus Magnesium Direct Bilirubin AST ALT Alkaline Phosphatase Lactate Dehydrogenase Troponin T C-Reactive Protein Total Protein Albumin Prealbumin Triglycerides Cholesterol LDL Cholesterol Direct HDL Cholesterol 25-OH Vitamin D Total PTH Intact Urine pH Urine WBC (Auto) Urine Creatinine Urine Total Protein Fluid Total Protein Vancomycin Trough Rheumatoid Factor Complement C4 Miscellaneous Test Crossmatch See Detail 01/25/17 01/25/17 01/26/17 18:02 23:07 01:20 WBC RBC Hgb Hct MCV MCH MCHC RDW Plt Count Lymph % (Auto) [place] % (Auto) Lymph # [place] # Baso # Seg Neutrophils % Seg Neuts % (Manual) Lymphocytes % (Manual) Monocytes % (Manual) Eosinophils % (Manual) Basophils % (Manual) Nucleated RBC % Seg Neutrophils # Seg Neutrophils # Man Lymphocytes # (Manual) Monocytes # (Manual) Eosinophils # (Manual) Basophils # (Manual) PT INR Fibrinogen dRVVT Confirm Interp Factor V Activity POC ABG pH POC ABG pCO2 POC ABG pO2 ABG pO2 ABG HCO3 ABG Base Excess ABG Hemoglobin Oxyhemoglobin Sodium Potassium Chloride Carbon Dioxide BUN Creatinine Glucose POC Glucose 120 H 123 H 112 H Lactic Acid Calcium Ionized Calcium Phosphorus Magnesium Direct Bilirubin AST ALT Alkaline Phosphatase Lactate Dehydrogenase Troponin T C-Reactive Protein Total Protein Albumin Prealbumin Triglycerides Cholesterol LDL Cholesterol Direct HDL Cholesterol 25-OH Vitamin D Total PTH Intact Urine pH Urine WBC (Auto) Urine Creatinine Urine Total Protein Fluid Total Protein Vancomycin Trough Rheumatoid Factor Complement C4 Miscellaneous Test Crossmatch 01/26/17 01/26/17 01/26/17 04:20 04:20 11:23 WBC 13.1 H RBC 3.28 L Hgb 9.0 L Hct 26.9 L D MCV MCH 27 L MCHC RDW 17.2 H Plt Count Lymph % (Auto) [place] % (Auto) 9.0 H Lymph # [place] # 1.2 H Baso # Seg Neutrophils % 73.1 H Seg Neuts % (Manual) Lymphocytes % (Manual) Monocytes % (Manual) Eosinophils % (Manual) Basophils % (Manual) Nucleated RBC % Seg Neutrophils # 9.6 H Seg Neutrophils # Man Lymphocytes # (Manual) Monocytes # (Manual) Eosinophils # (Manual) Basophils # (Manual) PT INR Fibrinogen dRVVT Confirm Interp Factor V Activity POC ABG pH POC ABG pCO2 POC ABG pO2 ABG pO2 ABG HCO3 ABG Base Excess ABG Hemoglobin Oxyhemoglobin Sodium Potassium Chloride Carbon Dioxide BUN 51 H Creatinine Glucose 117 H POC Glucose 125 H Lactic Acid Calcium Ionized Calcium Phosphorus Magnesium Direct Bilirubin AST ALT Alkaline Phosphatase Lactate Dehydrogenase Troponin T C-Reactive Protein Total Protein Albumin Prealbumin Triglycerides Cholesterol LDL Cholesterol Direct HDL Cholesterol 25-OH Vitamin D Total PTH Intact Urine pH Urine WBC (Auto) Urine Creatinine Urine Total Protein Fluid Total Protein Vancomycin Trough Rheumatoid Factor Complement C4 Miscellaneous Test Crossmatch 01/26/17 01/27/17 01/27/17 17:11 00:30 04:00 WBC RBC Hgb Hct MCV MCH MCHC RDW Plt Count Lymph % (Auto) [place] % (Auto) Lymph # [place] # Baso # Seg Neutrophils % Seg Neuts % (Manual) Lymphocytes % (Manual) Monocytes % (Manual) Eosinophils % (Manual) Basophils % (Manual) Nucleated RBC % Seg Neutrophils # Seg Neutrophils # Man Lymphocytes # (Manual) Monocytes # (Manual) Eosinophils # (Manual) Basophils # (Manual) PT INR Fibrinogen dRVVT Confirm Interp Factor V Activity POC ABG pH POC ABG pCO2 POC ABG pO2 ABG pO2 ABG HCO3 ABG Base Excess ABG Hemoglobin Oxyhemoglobin Sodium Potassium Chloride 97.7 L Carbon Dioxide 21 L BUN 79 H Creatinine 1.7 H D Glucose 112 H POC Glucose 133 H 135 H Lactic Acid Calcium Ionized Calcium Phosphorus 5.00 H D Magnesium Direct Bilirubin AST ALT Alkaline Phosphatase Lactate Dehydrogenase Troponin T C-Reactive Protein Total Protein Albumin Prealbumin Triglycerides Cholesterol LDL Cholesterol Direct HDL Cholesterol 25-OH Vitamin D Total PTH Intact Urine pH Urine WBC (Auto) Urine Creatinine Urine Total Protein Fluid Total Protein Vancomycin Trough Rheumatoid Factor Complement C4 Miscellaneous Test Crossmatch 01/27/17 01/27/17 01/27/17 05:12 12:18 17:25 WBC RBC Hgb Hct MCV MCH MCHC RDW Plt Count Lymph % (Auto) [place] % (Auto) Lymph # [place] # Baso # Seg Neutrophils % Seg Neuts % (Manual) Lymphocytes % (Manual) Monocytes % (Manual) Eosinophils % (Manual) Basophils % (Manual) Nucleated RBC % Seg Neutrophils # Seg Neutrophils # Man Lymphocytes # (Manual) Monocytes # (Manual) Eosinophils # (Manual) Basophils # (Manual) PT INR Fibrinogen dRVVT Confirm Interp Factor V Activity POC ABG pH POC ABG pCO2 POC ABG pO2 ABG pO2 ABG HCO3 ABG Base Excess ABG Hemoglobin Oxyhemoglobin Sodium Potassium Chloride Carbon Dioxide BUN Creatinine Glucose POC Glucose 116 H 153 H 152 H Lactic Acid Calcium Ionized Calcium Phosphorus Magnesium Direct Bilirubin AST ALT Alkaline Phosphatase Lactate Dehydrogenase Troponin T C-Reactive Protein Total Protein Albumin Prealbumin Triglycerides Cholesterol LDL Cholesterol Direct HDL Cholesterol 25-OH Vitamin D Total PTH Intact Urine pH Urine WBC (Auto) Urine Creatinine Urine Total Protein Fluid Total Protein Vancomycin Trough Rheumatoid Factor Complement C4 Miscellaneous Test Crossmatch 01/27/17 01/28/17 01/28/17 23:42 04:00 04:00 WBC 14.4 H RBC 2.82 L Hgb 7.4 L Hct 23.5 L MCV MCH 26 L MCHC RDW 17.6 H Plt Count Lymph % (Auto) 10.2 L [place] % (Auto) 11.0 H Lymph # [place] # 1.6 H Baso # Seg Neutrophils % 78.0 H Seg Neuts % (Manual) Lymphocytes % (Manual) Monocytes % (Manual) Eosinophils % (Manual) Basophils % (Manual) Nucleated RBC % Seg Neutrophils # 11.3 H Seg Neutrophils # Man Lymphocytes # (Manual) Monocytes # (Manual) Eosinophils # (Manual) Basophils # (Manual) PT INR Fibrinogen dRVVT Confirm Interp Factor V Activity POC ABG pH POC ABG pCO2 POC ABG pO2 ABG pO2 ABG HCO3 ABG Base Excess ABG Hemoglobin Oxyhemoglobin Sodium Potassium Chloride Carbon Dioxide BUN 55 H Creatinine 1.3 H Glucose 114 H POC Glucose 121 H Lactic Acid Calcium Ionized Calcium Phosphorus Magnesium Direct Bilirubin AST ALT Alkaline Phosphatase Lactate Dehydrogenase Troponin T C-Reactive Protein Total Protein Albumin 1.4 L Prealbumin Triglycerides Cholesterol LDL Cholesterol Direct HDL Cholesterol 25-OH Vitamin D Total PTH Intact Urine pH Urine WBC (Auto) Urine Creatinine Urine Total Protein Fluid Total Protein Vancomycin Trough Rheumatoid Factor Complement C4 Miscellaneous Test Crossmatch 01/28/17 01/28/17 01/29/17 04:59 12:30 00:02 WBC RBC Hgb Hct MCV MCH MCHC RDW Plt Count Lymph % (Auto) [place] % (Auto) Lymph # [place] # Baso # Seg Neutrophils % Seg Neuts % (Manual) Lymphocytes % (Manual) Monocytes % (Manual) Eosinophils % (Manual) Basophils % (Manual) Nucleated RBC % Seg Neutrophils # Seg Neutrophils # Man Lymphocytes # (Manual) Monocytes # (Manual) Eosinophils # (Manual) Basophils # (Manual) PT INR Fibrinogen dRVVT Confirm Interp Factor V Activity POC ABG pH POC ABG pCO2 POC ABG pO2 ABG pO2 ABG HCO3 ABG Base Excess ABG Hemoglobin Oxyhemoglobin Sodium Potassium Chloride Carbon Dioxide BUN Creatinine Glucose POC Glucose 126 H 119 H 138 H Lactic Acid Calcium Ionized Calcium Phosphorus Magnesium Direct Bilirubin AST ALT Alkaline Phosphatase Lactate Dehydrogenase Troponin T C-Reactive Protein Total Protein Albumin Prealbumin Triglycerides Cholesterol LDL Cholesterol Direct HDL Cholesterol 25-OH Vitamin D Total PTH Intact Urine pH Urine WBC (Auto) Urine Creatinine Urine Total Protein Fluid Total Protein Vancomycin Trough Rheumatoid Factor Complement C4 Miscellaneous Test Crossmatch 01/29/17 01/29/17 01/29/17 04:58 06:15 11:35 WBC RBC Hgb Hct MCV MCH MCHC RDW Plt Count Lymph % (Auto) [place] % (Auto) Lymph # [place] # Baso # Seg Neutrophils % Seg Neuts % (Manual) Lymphocytes % (Manual) Monocytes % (Manual) Eosinophils % (Manual) Basophils % (Manual) Nucleated RBC % Seg Neutrophils # Seg Neutrophils # Man Lymphocytes # (Manual) Monocytes # (Manual) Eosinophils # (Manual) Basophils # (Manual) PT INR Fibrinogen dRVVT Confirm Interp Factor V Activity POC ABG pH POC ABG pCO2 POC ABG pO2 ABG pO2 ABG HCO3 ABG Base Excess ABG Hemoglobin Oxyhemoglobin Sodium Potassium Chloride Carbon Dioxide BUN 85 H Creatinine 1.7 H Glucose 105 H POC Glucose 114 H 110 H Lactic Acid Calcium Ionized Calcium Phosphorus Magnesium 2.40 H Direct Bilirubin AST ALT Alkaline Phosphatase Lactate Dehydrogenase Troponin T C-Reactive Protein Total Protein Albumin Prealbumin Triglycerides Cholesterol LDL Cholesterol Direct HDL Cholesterol 25-OH Vitamin D Total PTH Intact Urine pH Urine WBC (Auto) Urine Creatinine Urine Total Protein Fluid Total Protein Vancomycin Trough Rheumatoid Factor Complement C4 Miscellaneous Test Crossmatch 01/29/17 01/29/17 01/30/17 18:24 23:41 05:12 WBC RBC Hgb Hct MCV MCH MCHC RDW Plt Count Lymph % (Auto) [place] % (Auto) Lymph # [place] # Baso # Seg Neutrophils % Seg Neuts % (Manual) Lymphocytes % (Manual) Monocytes % (Manual) Eosinophils % (Manual) Basophils % (Manual) Nucleated RBC % Seg Neutrophils # Seg Neutrophils # Man Lymphocytes # (Manual) Monocytes # (Manual) Eosinophils # (Manual) Basophils # (Manual) PT INR Fibrinogen dRVVT Confirm Interp Factor V Activity POC ABG pH POC ABG pCO2 POC ABG pO2 ABG pO2 ABG HCO3 ABG Base Excess ABG Hemoglobin Oxyhemoglobin Sodium Potassium Chloride Carbon Dioxide BUN Creatinine Glucose POC Glucose 109 H 134 H 109 H Lactic Acid Calcium Ionized Calcium Phosphorus Magnesium Direct Bilirubin AST ALT Alkaline Phosphatase Lactate Dehydrogenase Troponin T C-Reactive Protein Total Protein Albumin Prealbumin Triglycerides Cholesterol LDL Cholesterol Direct HDL Cholesterol 25-OH Vitamin D Total PTH Intact Urine pH Urine WBC (Auto) Urine Creatinine Urine Total Protein Fluid Total Protein Vancomycin Trough Rheumatoid Factor Complement C4 Miscellaneous Test Crossmatch 01/30/17 01/30/17 01/30/17 11:26 17:43 23:39 WBC RBC Hgb Hct MCV MCH MCHC RDW Plt Count Lymph % (Auto) [place] % (Auto) Lymph # [place] # Baso # Seg Neutrophils % Seg Neuts % (Manual) Lymphocytes % (Manual) Monocytes % (Manual) Eosinophils % (Manual) Basophils % (Manual) Nucleated RBC % Seg Neutrophils # Seg Neutrophils # Man Lymphocytes # (Manual) Monocytes # (Manual) Eosinophils # (Manual) Basophils # (Manual) PT INR Fibrinogen dRVVT Confirm Interp Factor V Activity POC ABG pH POC ABG pCO2 POC ABG pO2 ABG pO2 ABG HCO3 ABG Base Excess ABG Hemoglobin Oxyhemoglobin Sodium Potassium Chloride Carbon Dioxide BUN Creatinine Glucose POC Glucose 135 H 143 H 122 H Lactic Acid Calcium Ionized Calcium Phosphorus Magnesium Direct Bilirubin AST ALT Alkaline Phosphatase Lactate Dehydrogenase Troponin T C-Reactive Protein Total Protein Albumin Prealbumin Triglycerides Cholesterol LDL Cholesterol Direct HDL Cholesterol 25-OH Vitamin D Total PTH Intact Urine pH Urine WBC (Auto) Urine Creatinine Urine Total Protein Fluid Total Protein Vancomycin Trough Rheumatoid Factor Complement C4 Miscellaneous Test Crossmatch 01/31/17 01/31/17 01/31/17 04:00 05:40 11:12 WBC RBC Hgb Hct MCV MCH MCHC RDW Plt Count Lymph % (Auto) [place] % (Auto) Lymph # [place] # Baso # Seg Neutrophils % Seg Neuts % (Manual) Lymphocytes % (Manual) Monocytes % (Manual) Eosinophils % (Manual) Basophils % (Manual) Nucleated RBC % Seg Neutrophils # Seg Neutrophils # Man Lymphocytes # (Manual) Monocytes # (Manual) Eosinophils # (Manual) Basophils # (Manual) PT INR Fibrinogen dRVVT Confirm Interp Factor V Activity POC ABG pH POC ABG pCO2 POC ABG pO2 ABG pO2 ABG HCO3 ABG Base Excess ABG Hemoglobin Oxyhemoglobin Sodium Potassium Chloride Carbon Dioxide BUN 78 H Creatinine 1.5 H Glucose 108 H POC Glucose 123 H Lactic Acid Calcium Ionized Calcium Phosphorus Magnesium Direct Bilirubin AST ALT Alkaline Phosphatase Lactate Dehydrogenase Troponin T C-Reactive Protein 8.10 H Total Protein Albumin Prealbumin Triglycerides Cholesterol LDL Cholesterol Direct HDL Cholesterol 25-OH Vitamin D Total PTH Intact Urine pH Urine WBC (Auto) Urine Creatinine Urine Total Protein Fluid Total Protein Vancomycin Trough Rheumatoid Factor Complement C4 Miscellaneous Test Crossmatch 01/31/17 01/31/17 01/31/17 11:16 17:45 17:50 WBC RBC Hgb Hct MCV MCH MCHC RDW Plt Count Lymph % (Auto) [place] % (Auto) Lymph # [place] # Baso # Seg Neutrophils % Seg Neuts % (Manual) Lymphocytes % (Manual) Monocytes % (Manual) Eosinophils % (Manual) Basophils % (Manual) Nucleated RBC % Seg Neutrophils # Seg Neutrophils # Man Lymphocytes # (Manual) Monocytes # (Manual) Eosinophils # (Manual) Basophils # (Manual) PT INR Fibrinogen dRVVT Confirm Interp Factor V Activity POC ABG pH POC ABG pCO2 POC ABG pO2 ABG pO2 ABG HCO3 ABG Base Excess ABG Hemoglobin Oxyhemoglobin Sodium Potassium Chloride Carbon Dioxide BUN Creatinine Glucose POC Glucose 119 H 111 H Lactic Acid Calcium Ionized Calcium Phosphorus Magnesium Direct Bilirubin AST ALT Alkaline Phosphatase Lactate Dehydrogenase Troponin T C-Reactive Protein Total Protein Albumin Prealbumin Triglycerides Cholesterol LDL Cholesterol Direct HDL Cholesterol 25-OH Vitamin D Total PTH Intact 6.76 L Urine pH Urine WBC (Auto) Urine Creatinine Urine Total Protein Fluid Total Protein Vancomycin Trough Rheumatoid Factor Complement C4 Miscellaneous Test Crossmatch 01/31/17 02/01/17 02/01/17 23:19 05:42 09:24 WBC RBC Hgb Hct MCV MCH MCHC RDW Plt Count Lymph % (Auto) [place] % (Auto) Lymph # [place] # Baso # Seg Neutrophils % Seg Neuts % (Manual) Lymphocytes % (Manual) Monocytes % (Manual) Eosinophils % (Manual) Basophils % (Manual) Nucleated RBC % Seg Neutrophils # Seg Neutrophils # Man Lymphocytes # (Manual) Monocytes # (Manual) Eosinophils # (Manual) Basophils # (Manual) PT INR Fibrinogen dRVVT Confirm Interp Factor V Activity POC ABG pH POC ABG pCO2 POC ABG pO2 ABG pO2 ABG HCO3 ABG Base Excess ABG Hemoglobin Oxyhemoglobin Sodium Potassium Chloride Carbon Dioxide BUN Creatinine Glucose POC Glucose 118 H 122 H Lactic Acid Calcium Ionized Calcium Phosphorus Magnesium 2.60 H Direct Bilirubin AST ALT Alkaline Phosphatase Lactate Dehydrogenase Troponin T C-Reactive Protein Total Protein Albumin Prealbumin Triglycerides Cholesterol LDL Cholesterol Direct HDL Cholesterol 25-OH Vitamin D Total PTH Intact Urine pH Urine WBC (Auto) Urine Creatinine Urine Total Protein Fluid Total Protein Vancomycin Trough Rheumatoid Factor Complement C4 Miscellaneous Test Crossmatch 02/01/17 02/01/17 02/02/17 09:24 12:15 07:40 WBC RBC Hgb Hct MCV MCH MCHC RDW Plt Count Lymph % (Auto) [place] % (Auto) Lymph # [place] # Baso # Seg Neutrophils % Seg Neuts % (Manual) Lymphocytes % (Manual) Monocytes % (Manual) Eosinophils % (Manual) Basophils % (Manual) Nucleated RBC % Seg Neutrophils # Seg Neutrophils # Man Lymphocytes # (Manual) Monocytes # (Manual) Eosinophils # (Manual) Basophils # (Manual) PT INR Fibrinogen dRVVT Confirm Interp Factor V Activity POC ABG pH POC ABG pCO2 POC ABG pO2 ABG pO2 ABG HCO3 ABG Base Excess ABG Hemoglobin Oxyhemoglobin Sodium Potassium Chloride Carbon Dioxide BUN 102 H 72 H Creatinine 1.9 H 1.5 H Glucose 120 H POC Glucose 156 H Lactic Acid Calcium Ionized Calcium Phosphorus Magnesium Direct Bilirubin AST ALT Alkaline Phosphatase Lactate Dehydrogenase Troponin T C-Reactive Protein Total Protein Albumin Prealbumin Triglycerides Cholesterol LDL Cholesterol Direct HDL Cholesterol 25-OH Vitamin D Total PTH Intact Urine pH Urine WBC (Auto) Urine Creatinine Urine Total Protein Fluid Total Protein Vancomycin Trough Rheumatoid Factor Complement C4 Miscellaneous Test Crossmatch 02/02/17 02/02/17 02/03/17 10:16 12:11 00:08 WBC 12.0 H RBC 3.08 L Hgb 8.3 L Hct 25.6 L MCV MCH 27 L MCHC RDW 18.2 H Plt Count Lymph % (Auto) [place] % (Auto) Lymph # [place] # Baso # Seg Neutrophils % 78.4 H Seg Neuts % (Manual) Lymphocytes % (Manual) Monocytes % (Manual) Eosinophils % (Manual) Basophils % (Manual) Nucleated RBC % Seg Neutrophils # 9.4 H Seg Neutrophils # Man Lymphocytes # (Manual) Monocytes # (Manual) Eosinophils # (Manual) Basophils # (Manual) PT INR Fibrinogen dRVVT Confirm Interp Factor V Activity POC ABG pH POC ABG pCO2 POC ABG pO2 ABG pO2 ABG HCO3 ABG Base Excess ABG Hemoglobin Oxyhemoglobin Sodium Potassium Chloride Carbon Dioxide BUN Creatinine Glucose POC Glucose 110 H 120 H Lactic Acid Calcium Ionized Calcium Phosphorus Magnesium Direct Bilirubin AST ALT Alkaline Phosphatase Lactate Dehydrogenase Troponin T C-Reactive Protein Total Protein Albumin Prealbumin Triglycerides Cholesterol LDL Cholesterol Direct HDL Cholesterol 25-OH Vitamin D Total PTH Intact Urine pH Urine WBC (Auto) Urine Creatinine Urine Total Protein Fluid Total Protein Vancomycin Trough Rheumatoid Factor Complement C4 Miscellaneous Test Crossmatch 02/03/17 02/03/17 02/03/17 05:41 07:38 11:31 WBC RBC Hgb Hct MCV MCH MCHC RDW Plt Count Lymph % (Auto) [place] % (Auto) Lymph # [place] # Baso # Seg Neutrophils % Seg Neuts % (Manual) Lymphocytes % (Manual) Monocytes % (Manual) Eosinophils % (Manual) Basophils % (Manual) Nucleated RBC % Seg Neutrophils # Seg Neutrophils # Man Lymphocytes # (Manual) Monocytes # (Manual) Eosinophils # (Manual) Basophils # (Manual) PT INR Fibrinogen dRVVT Confirm Interp Factor V Activity POC ABG pH POC ABG pCO2 POC ABG pO2 ABG pO2 ABG HCO3 ABG Base Excess ABG Hemoglobin Oxyhemoglobin Sodium 134 L Potassium Chloride Carbon Dioxide 21 L BUN 91 H Creatinine 1.9 H Glucose 110 H POC Glucose 119 H 119 H Lactic Acid Calcium 10.3 H Ionized Calcium Phosphorus Magnesium Direct Bilirubin AST ALT Alkaline Phosphatase Lactate Dehydrogenase Troponin T C-Reactive Protein Total Protein Albumin Prealbumin Triglycerides Cholesterol LDL Cholesterol Direct HDL Cholesterol 25-OH Vitamin D Total PTH Intact Urine pH Urine WBC (Auto) Urine Creatinine Urine Total Protein Fluid Total Protein Vancomycin Trough Rheumatoid Factor Complement C4 Miscellaneous Test Crossmatch 02/03/17 02/04/17 02/04/17 17:13 04:00 05:18 WBC RBC Hgb Hct MCV MCH MCHC RDW Plt Count Lymph % (Auto) [place] % (Auto) Lymph # [place] # Baso # Seg Neutrophils % Seg Neuts % (Manual) Lymphocytes % (Manual) Monocytes % (Manual) Eosinophils % (Manual) Basophils % (Manual) Nucleated RBC % Seg Neutrophils # Seg Neutrophils # Man Lymphocytes # (Manual) Monocytes # (Manual) Eosinophils # (Manual) Basophils # (Manual) PT INR Fibrinogen dRVVT Confirm Interp Factor V Activity POC ABG pH POC ABG pCO2 POC ABG pO2 ABG pO2 ABG HCO3 ABG Base Excess ABG Hemoglobin Oxyhemoglobin Sodium 136 L Potassium Chloride Carbon Dioxide BUN 58 H Creatinine 1.3 H Glucose 103 H POC Glucose 133 H 132 H Lactic Acid Calcium Ionized Calcium Phosphorus 2.00 L D Magnesium 1.60 L Direct Bilirubin AST ALT Alkaline Phosphatase Lactate Dehydrogenase Troponin T C-Reactive Protein Total Protein Albumin Prealbumin Triglycerides Cholesterol LDL Cholesterol Direct HDL Cholesterol 25-OH Vitamin D Total PTH Intact Urine pH Urine WBC (Auto) Urine Creatinine Urine Total Protein Fluid Total Protein Vancomycin Trough Rheumatoid Factor Complement C4 Miscellaneous Test Crossmatch 02/05/17 02/05/17 02/05/17 00:01 04:00 06:42 WBC RBC Hgb Hct MCV MCH MCHC RDW Plt Count Lymph % (Auto) [place] % (Auto) Lymph # [place] # Baso # Seg Neutrophils % Seg Neuts % (Manual) Lymphocytes % (Manual) Monocytes % (Manual) Eosinophils % (Manual) Basophils % (Manual) Nucleated RBC % Seg Neutrophils # Seg Neutrophils # Man Lymphocytes # (Manual) Monocytes # (Manual) Eosinophils # (Manual) Basophils # (Manual) PT INR Fibrinogen dRVVT Confirm Interp Factor V Activity POC ABG pH POC ABG pCO2 POC ABG pO2 ABG pO2 ABG HCO3 ABG Base Excess ABG Hemoglobin Oxyhemoglobin Sodium Potassium Chloride Carbon Dioxide BUN 83 H Creatinine 1.8 H Glucose POC Glucose 119 H 110 H Lactic Acid Calcium 10.7 H Ionized Calcium Phosphorus Magnesium Direct Bilirubin AST ALT Alkaline Phosphatase Lactate Dehydrogenase Troponin T C-Reactive Protein Total Protein Albumin Prealbumin Triglycerides Cholesterol LDL Cholesterol Direct HDL Cholesterol 25-OH Vitamin D Total PTH Intact Urine pH Urine WBC (Auto) Urine Creatinine Urine Total Protein Fluid Total Protein Vancomycin Trough Rheumatoid Factor Complement C4 Miscellaneous Test Crossmatch 02/05/17 02/05/17 02/05/17 09:59 11:47 23:44 WBC RBC 2.69 L Hgb 7.2 L Hct 22.5 L MCV MCH 27 L MCHC RDW 18.6 H Plt Count Lymph % (Auto) [place] % (Auto) 9.2 H Lymph # [place] # 0.9 H Baso # Seg Neutrophils % Seg Neuts % (Manual) Lymphocytes % (Manual) Monocytes % (Manual) Eosinophils % (Manual) Basophils % (Manual) Nucleated RBC % Seg Neutrophils # Seg Neutrophils # Man Lymphocytes # (Manual) Monocytes # (Manual) Eosinophils # (Manual) Basophils # (Manual) PT INR Fibrinogen dRVVT Confirm Interp Factor V Activity POC ABG pH POC ABG pCO2 POC ABG pO2 ABG pO2 ABG HCO3 ABG Base Excess ABG Hemoglobin Oxyhemoglobin Sodium Potassium Chloride Carbon Dioxide BUN Creatinine Glucose POC Glucose 130 H 123 H Lactic Acid Calcium Ionized Calcium Phosphorus Magnesium Direct Bilirubin AST ALT Alkaline Phosphatase Lactate Dehydrogenase Troponin T C-Reactive Protein Total Protein Albumin Prealbumin Triglycerides Cholesterol LDL Cholesterol Direct HDL Cholesterol 25-OH Vitamin D Total PTH Intact Urine pH Urine WBC (Auto) Urine Creatinine Urine Total Protein Fluid Total Protein Vancomycin Trough Rheumatoid Factor Complement C4 Miscellaneous Test Crossmatch 02/06/17 02/06/17 02/06/17 04:45 05:58 12:01 WBC RBC Hgb Hct MCV MCH MCHC RDW Plt Count Lymph % (Auto) [place] % (Auto) Lymph # [place] # Baso # Seg Neutrophils % Seg Neuts % (Manual) Lymphocytes % (Manual) Monocytes % (Manual) Eosinophils % (Manual) Basophils % (Manual) Nucleated RBC % Seg Neutrophils # Seg Neutrophils # Man Lymphocytes # (Manual) Monocytes # (Manual) Eosinophils # (Manual) Basophils # (Manual) PT INR Fibrinogen dRVVT Confirm Interp Factor V Activity POC ABG pH POC ABG pCO2 POC ABG pO2 ABG pO2 ABG HCO3 ABG Base Excess ABG Hemoglobin Oxyhemoglobin Sodium Potassium Chloride Carbon Dioxide BUN 101 H Creatinine 2.0 H Glucose 102 H POC Glucose 115 H 132 H Lactic Acid Calcium 10.6 H Ionized Calcium Phosphorus Magnesium Direct Bilirubin AST ALT Alkaline Phosphatase 199 H Lactate Dehydrogenase Troponin T C-Reactive Protein Total Protein Albumin 1.4 L Prealbumin Triglycerides Cholesterol LDL Cholesterol Direct HDL Cholesterol 25-OH Vitamin D Total PTH Intact Urine pH Urine WBC (Auto) Urine Creatinine Urine Total Protein Fluid Total Protein Vancomycin Trough Rheumatoid Factor Complement C4 Miscellaneous Test Crossmatch 02/06/17 02/06/17 02/07/17 17:41 23:32 05:04 WBC RBC Hgb Hct MCV MCH MCHC RDW Plt Count Lymph % (Auto) [place] % (Auto) Lymph # [place] # Baso # Seg Neutrophils % Seg Neuts % (Manual) Lymphocytes % (Manual) Monocytes % (Manual) Eosinophils % (Manual) Basophils % (Manual) Nucleated RBC % Seg Neutrophils # Seg Neutrophils # Man Lymphocytes # (Manual) Monocytes # (Manual) Eosinophils # (Manual) Basophils # (Manual) PT INR Fibrinogen dRVVT Confirm Interp Factor V Activity POC ABG pH POC ABG pCO2 POC ABG pO2 ABG pO2 ABG HCO3 ABG Base Excess ABG Hemoglobin Oxyhemoglobin Sodium Potassium Chloride Carbon Dioxide BUN Creatinine Glucose POC Glucose 134 H 128 H 119 H Lactic Acid Calcium Ionized Calcium Phosphorus Magnesium Direct Bilirubin AST ALT Alkaline Phosphatase Lactate Dehydrogenase Troponin T C-Reactive Protein Total Protein Albumin Prealbumin Triglycerides Cholesterol LDL Cholesterol Direct HDL Cholesterol 25-OH Vitamin D Total PTH Intact Urine pH Urine WBC (Auto) Urine Creatinine Urine Total Protein Fluid Total Protein Vancomycin Trough Rheumatoid Factor Complement C4 Miscellaneous Test Crossmatch 02/07/17 02/07/17 02/07/17 06:30 11:20 17:13 WBC RBC Hgb Hct MCV MCH MCHC RDW Plt Count Lymph % (Auto) [place] % (Auto) Lymph # [place] # Baso # Seg Neutrophils % Seg Neuts % (Manual) Lymphocytes % (Manual) Monocytes % (Manual) Eosinophils % (Manual) Basophils % (Manual) Nucleated RBC % Seg Neutrophils # Seg Neutrophils # Man Lymphocytes # (Manual) Monocytes # (Manual) Eosinophils # (Manual) Basophils # (Manual) PT INR Fibrinogen dRVVT Confirm Interp Factor V Activity POC ABG pH POC ABG pCO2 POC ABG pO2 ABG pO2 ABG HCO3 ABG Base Excess ABG Hemoglobin Oxyhemoglobin Sodium Potassium 3.4 L Chloride Carbon Dioxide BUN 69 H Creatinine 1.5 H Glucose 105 H POC Glucose 117 H 110 H Lactic Acid Calcium Ionized Calcium Phosphorus Magnesium 1.50 L Direct Bilirubin AST ALT Alkaline Phosphatase Lactate Dehydrogenase Troponin T C-Reactive Protein Total Protein Albumin Prealbumin Triglycerides Cholesterol LDL Cholesterol Direct HDL Cholesterol 25-OH Vitamin D Total PTH Intact Urine pH Urine WBC (Auto) Urine Creatinine Urine Total Protein Fluid Total Protein Vancomycin Trough Rheumatoid Factor Complement C4 Miscellaneous Test Crossmatch 02/07/17 02/08/17 02/08/17 20:47 04:00 11:43 WBC RBC Hgb Hct MCV MCH MCHC RDW Plt Count Lymph % (Auto) [place] % (Auto) Lymph # [place] # Baso # Seg Neutrophils % Seg Neuts % (Manual) Lymphocytes % (Manual) Monocytes % (Manual) Eosinophils % (Manual) Basophils % (Manual) Nucleated RBC % Seg Neutrophils # Seg Neutrophils # Man Lymphocytes # (Manual) Monocytes # (Manual) Eosinophils # (Manual) Basophils # (Manual) PT INR Fibrinogen dRVVT Confirm Interp Factor V Activity POC ABG pH POC ABG pCO2 POC ABG pO2 ABG pO2 ABG HCO3 ABG Base Excess ABG Hemoglobin Oxyhemoglobin Sodium Potassium Chloride Carbon Dioxide BUN 86 H Creatinine 1.7 H Glucose POC Glucose 115 H 122 H Lactic Acid Calcium Ionized Calcium Phosphorus Magnesium 1.60 L Direct Bilirubin AST ALT Alkaline Phosphatase Lactate Dehydrogenase Troponin T C-Reactive Protein Total Protein Albumin Prealbumin Triglycerides Cholesterol LDL Cholesterol Direct HDL Cholesterol 25-OH Vitamin D Total PTH Intact Urine pH Urine WBC (Auto) Urine Creatinine Urine Total Protein Fluid Total Protein Vancomycin Trough Rheumatoid Factor Complement C4 Miscellaneous Test Crossmatch 02/08/17 02/09/17 02/09/17 17:36 05:44 11:30 WBC RBC Hgb Hct MCV MCH MCHC RDW Plt Count Lymph % (Auto) [place] % (Auto) Lymph # [place] # Baso # Seg Neutrophils % Seg Neuts % (Manual) Lymphocytes % (Manual) Monocytes % (Manual) Eosinophils % (Manual) Basophils % (Manual) Nucleated RBC % Seg Neutrophils # Seg Neutrophils # Man Lymphocytes # (Manual) Monocytes # (Manual) Eosinophils # (Manual) Basophils # (Manual) PT INR Fibrinogen dRVVT Confirm Interp Factor V Activity POC ABG pH POC ABG pCO2 POC ABG pO2 ABG pO2 ABG HCO3 ABG Base Excess ABG Hemoglobin Oxyhemoglobin Sodium Potassium Chloride Carbon Dioxide BUN Creatinine Glucose POC Glucose 125 H 117 H 120 H Lactic Acid Calcium Ionized Calcium Phosphorus Magnesium Direct Bilirubin AST ALT Alkaline Phosphatase Lactate Dehydrogenase Troponin T C-Reactive Protein Total Protein Albumin Prealbumin Triglycerides Cholesterol LDL Cholesterol Direct HDL Cholesterol 25-OH Vitamin D Total PTH Intact Urine pH Urine WBC (Auto) Urine Creatinine Urine Total Protein Fluid Total Protein Vancomycin Trough Rheumatoid Factor Complement C4 Miscellaneous Test Crossmatch 02/09/17 02/10/17 02/10/17 23:45 05:45 05:50 WBC RBC Hgb Hct MCV MCH MCHC RDW Plt Count Lymph % (Auto) [place] % (Auto) Lymph # [place] # Baso # Seg Neutrophils % Seg Neuts % (Manual) Lymphocytes % (Manual) Monocytes % (Manual) Eosinophils % (Manual) Basophils % (Manual) Nucleated RBC % Seg Neutrophils # Seg Neutrophils # Man Lymphocytes # (Manual) Monocytes # (Manual) Eosinophils # (Manual) Basophils # (Manual) PT INR Fibrinogen dRVVT Confirm Interp Factor V Activity POC ABG pH POC ABG pCO2 POC ABG pO2 ABG pO2 ABG HCO3 ABG Base Excess ABG Hemoglobin Oxyhemoglobin Sodium Potassium Chloride Carbon Dioxide BUN 85 H Creatinine 1.8 H Glucose 109 H POC Glucose 114 H 189 H Lactic Acid Calcium Ionized Calcium Phosphorus Magnesium 2.50 H Direct Bilirubin AST ALT Alkaline Phosphatase Lactate Dehydrogenase Troponin T C-Reactive Protein Total Protein Albumin Prealbumin Triglycerides Cholesterol LDL Cholesterol Direct HDL Cholesterol 25-OH Vitamin D Total PTH Intact Urine pH Urine WBC (Auto) Urine Creatinine Urine Total Protein Fluid Total Protein Vancomycin Trough Rheumatoid Factor Complement C4 Miscellaneous Test Crossmatch 02/10/17 02/10/17 02/10/17 05:51 11:55 17:42 WBC RBC Hgb Hct MCV MCH MCHC RDW Plt Count Lymph % (Auto) [place] % (Auto) Lymph # [place] # Baso # Seg Neutrophils % Seg Neuts % (Manual) Lymphocytes % (Manual) Monocytes % (Manual) Eosinophils % (Manual) Basophils % (Manual) Nucleated RBC % Seg Neutrophils # Seg Neutrophils # Man Lymphocytes # (Manual) Monocytes # (Manual) Eosinophils # (Manual) Basophils # (Manual) PT INR Fibrinogen dRVVT Confirm Interp Factor V Activity POC ABG pH POC ABG pCO2 POC ABG pO2 ABG pO2 ABG HCO3 ABG Base Excess ABG Hemoglobin Oxyhemoglobin Sodium Potassium Chloride Carbon Dioxide BUN Creatinine Glucose POC Glucose 106 H 146 H 132 H Lactic Acid Calcium Ionized Calcium Phosphorus Magnesium Direct Bilirubin AST ALT Alkaline Phosphatase Lactate Dehydrogenase Troponin T C-Reactive Protein Total Protein Albumin Prealbumin Triglycerides Cholesterol LDL Cholesterol Direct HDL Cholesterol 25-OH Vitamin D Total PTH Intact Urine pH Urine WBC (Auto) Urine Creatinine Urine Total Protein Fluid Total Protein Vancomycin Trough Rheumatoid Factor Complement C4 Miscellaneous Test Crossmatch 02/10/17 02/11/17 02/11/17 23:43 04:08 05:34 WBC RBC Hgb Hct MCV MCH MCHC RDW Plt Count Lymph % (Auto) [place] % (Auto) Lymph # [place] # Baso # Seg Neutrophils % Seg Neuts % (Manual) Lymphocytes % (Manual) Monocytes % (Manual) Eosinophils % (Manual) Basophils % (Manual) Nucleated RBC % Seg Neutrophils # Seg Neutrophils # Man Lymphocytes # (Manual) Monocytes # (Manual) Eosinophils # (Manual) Basophils # (Manual) PT INR Fibrinogen dRVVT Confirm Interp Factor V Activity POC ABG pH POC ABG pCO2 POC ABG pO2 ABG pO2 ABG HCO3 ABG Base Excess ABG Hemoglobin Oxyhemoglobin Sodium 136 L Potassium Chloride Carbon Dioxide BUN 65 H Creatinine 1.7 H Glucose 105 H POC Glucose 130 H 113 H Lactic Acid Calcium Ionized Calcium Phosphorus Magnesium Direct Bilirubin AST ALT Alkaline Phosphatase Lactate Dehydrogenase Troponin T C-Reactive Protein Total Protein Albumin Prealbumin Triglycerides Cholesterol LDL Cholesterol Direct HDL Cholesterol 25-OH Vitamin D Total PTH Intact Urine pH Urine WBC (Auto) Urine Creatinine Urine Total Protein Fluid Total Protein Vancomycin Trough Rheumatoid Factor Complement C4 Miscellaneous Test Crossmatch 02/11/17 02/11/17 02/12/17 11:56 23:18 06:19 WBC RBC Hgb Hct MCV MCH MCHC RDW Plt Count Lymph % (Auto) [place] % (Auto) Lymph # [place] # Baso # Seg Neutrophils % Seg Neuts % (Manual) Lymphocytes % (Manual) Monocytes % (Manual) Eosinophils % (Manual) Basophils % (Manual) Nucleated RBC % Seg Neutrophils # Seg Neutrophils # Man Lymphocytes # (Manual) Monocytes # (Manual) Eosinophils # (Manual) Basophils # (Manual) PT INR Fibrinogen dRVVT Confirm Interp Factor V Activity POC ABG pH POC ABG pCO2 POC ABG pO2 ABG pO2 ABG HCO3 ABG Base Excess ABG Hemoglobin Oxyhemoglobin Sodium 136 L Potassium Chloride 97.1 L Carbon Dioxide BUN 93 H Creatinine 2.4 H Glucose POC Glucose 126 H 119 H Lactic Acid Calcium 11.0 H Ionized Calcium Phosphorus Magnesium Direct Bilirubin AST ALT Alkaline Phosphatase Lactate Dehydrogenase Troponin T C-Reactive Protein Total Protein Albumin Prealbumin Triglycerides Cholesterol LDL Cholesterol Direct HDL Cholesterol 25-OH Vitamin D Total PTH Intact Urine pH Urine WBC (Auto) Urine Creatinine Urine Total Protein Fluid Total Protein Vancomycin Trough Rheumatoid Factor Complement C4 Miscellaneous Test Crossmatch 02/12/17 02/12/17 02/12/17 08:00 10:25 11:42 WBC 15.4 H RBC 2.63 L Hgb 6.9 L Hct 22.6 L MCV MCH 26 L MCHC RDW 20.5 H Plt Count Lymph % (Auto) [place] % (Auto) Lymph # [place] # Baso # Seg Neutrophils % Seg Neuts % (Manual) Lymphocytes % (Manual) Monocytes % (Manual) Eosinophils % (Manual) Basophils % (Manual) Nucleated RBC % Seg Neutrophils # Seg Neutrophils # Man Lymphocytes # (Manual) Monocytes # (Manual) Eosinophils # (Manual) Basophils # (Manual) PT INR Fibrinogen dRVVT Confirm Interp Factor V Activity POC ABG pH POC ABG pCO2 POC ABG pO2 ABG pO2 ABG HCO3 ABG Base Excess ABG Hemoglobin Oxyhemoglobin Sodium Potassium Chloride Carbon Dioxide BUN Creatinine Glucose POC Glucose 142 H Lactic Acid Calcium Ionized Calcium Phosphorus Magnesium Direct Bilirubin AST ALT Alkaline Phosphatase Lactate Dehydrogenase Troponin T C-Reactive Protein Total Protein Albumin Prealbumin Triglycerides Cholesterol LDL Cholesterol Direct HDL Cholesterol 25-OH Vitamin D Total PTH Intact Urine pH Urine WBC (Auto) Urine Creatinine Urine Total Protein Fluid Total Protein Vancomycin Trough Rheumatoid Factor Complement C4 Miscellaneous Test Crossmatch See Detail 02/12/17 02/13/17 02/13/17 18:04 00:04 05:00 WBC RBC Hgb Hct MCV MCH MCHC RDW Plt Count Lymph % (Auto) [place] % (Auto) Lymph # [place] # Baso # Seg Neutrophils % Seg Neuts % (Manual) Lymphocytes % (Manual) Monocytes % (Manual) Eosinophils % (Manual) Basophils % (Manual) Nucleated RBC % Seg Neutrophils # Seg Neutrophils # Man Lymphocytes # (Manual) Monocytes # (Manual) Eosinophils # (Manual) Basophils # (Manual) PT INR Fibrinogen dRVVT Confirm Interp Factor V Activity POC ABG pH POC ABG pCO2 POC ABG pO2 ABG pO2 ABG HCO3 ABG Base Excess ABG Hemoglobin Oxyhemoglobin Sodium 134 L Potassium Chloride 96.1 L Carbon Dioxide 20 L BUN 125 H Creatinine 3.0 H Glucose 111 H POC Glucose 135 H 109 H Lactic Acid Calcium 11.3 H Ionized Calcium Phosphorus Magnesium Direct Bilirubin AST ALT Alkaline Phosphatase Lactate Dehydrogenase Troponin T C-Reactive Protein Total Protein Albumin Prealbumin Triglycerides Cholesterol LDL Cholesterol Direct HDL Cholesterol 25-OH Vitamin D Total PTH Intact Urine pH Urine WBC (Auto) Urine Creatinine Urine Total Protein Fluid Total Protein Vancomycin Trough Rheumatoid Factor Complement C4 Miscellaneous Test Crossmatch 02/13/17 02/13/17 02/13/17 05:00 05:28 12:03 WBC 11.9 H RBC 2.92 L Hgb 7.8 L Hct 25.2 L MCV MCH 27 L MCHC RDW 19.3 H Plt Count Lymph % (Auto) [place] % (Auto) Lymph # [place] # Baso # Seg Neutrophils % Seg Neuts % (Manual) Lymphocytes % (Manual) Monocytes % (Manual) Eosinophils % (Manual) Basophils % (Manual) Nucleated RBC % Seg Neutrophils # Seg Neutrophils # Man Lymphocytes # (Manual) Monocytes # (Manual) Eosinophils # (Manual) Basophils # (Manual) PT INR Fibrinogen dRVVT Confirm Interp Factor V Activity POC ABG pH POC ABG pCO2 POC ABG pO2 ABG pO2 ABG HCO3 ABG Base Excess ABG Hemoglobin Oxyhemoglobin Sodium Potassium Chloride Carbon Dioxide BUN Creatinine Glucose POC Glucose 124 H 160 H Lactic Acid Calcium Ionized Calcium Phosphorus Magnesium Direct Bilirubin AST ALT Alkaline Phosphatase Lactate Dehydrogenase Troponin T C-Reactive Protein Total Protein Albumin Prealbumin Triglycerides Cholesterol LDL Cholesterol Direct HDL Cholesterol 25-OH Vitamin D Total PTH Intact Urine pH Urine WBC (Auto) Urine Creatinine Urine Total Protein Fluid Total Protein Vancomycin Trough Rheumatoid Factor Complement C4 Miscellaneous Test Crossmatch 02/13/17 02/14/17 02/14/17 18:09 06:16 08:08 WBC 15.2 H RBC 2.97 L Hgb 8.1 L Hct 26.3 L MCV MCH MCHC RDW 19.3 H Plt Count Lymph % (Auto) [place] % (Auto) Lymph # [place] # Baso # Seg Neutrophils % Seg Neuts % (Manual) Lymphocytes % (Manual) Monocytes % (Manual) Eosinophils % (Manual) Basophils % (Manual) Nucleated RBC % Seg Neutrophils # Seg Neutrophils # Man Lymphocytes # (Manual) Monocytes # (Manual) Eosinophils # (Manual) Basophils # (Manual) PT INR Fibrinogen dRVVT Confirm Interp Factor V Activity POC ABG pH POC ABG pCO2 POC ABG pO2 ABG pO2 ABG HCO3 ABG Base Excess ABG Hemoglobin Oxyhemoglobin Sodium Potassium Chloride Carbon Dioxide BUN Creatinine Glucose POC Glucose 110 H 112 H Lactic Acid Calcium Ionized Calcium Phosphorus Magnesium Direct Bilirubin AST ALT Alkaline Phosphatase Lactate Dehydrogenase Troponin T C-Reactive Protein Total Protein Albumin Prealbumin Triglycerides Cholesterol LDL Cholesterol Direct HDL Cholesterol 25-OH Vitamin D Total PTH Intact Urine pH Urine WBC (Auto) Urine Creatinine Urine Total Protein Fluid Total Protein Vancomycin Trough Rheumatoid Factor Complement C4 Miscellaneous Test Crossmatch 02/14/17 02/14/17 02/15/17 08:08 17:41 04:15 WBC RBC Hgb Hct MCV MCH MCHC RDW Plt Count Lymph % (Auto) [place] % (Auto) Lymph # [place] # Baso # Seg Neutrophils % Seg Neuts % (Manual) Lymphocytes % (Manual) Monocytes % (Manual) Eosinophils % (Manual) Basophils % (Manual) Nucleated RBC % Seg Neutrophils # Seg Neutrophils # Man Lymphocytes # (Manual) Monocytes # (Manual) Eosinophils # (Manual) Basophils # (Manual) PT INR Fibrinogen dRVVT Confirm Interp Factor V Activity POC ABG pH POC ABG pCO2 POC ABG pO2 ABG pO2 ABG HCO3 ABG Base Excess ABG Hemoglobin Oxyhemoglobin Sodium Potassium Chloride Carbon Dioxide 18 L 21 L BUN 79 H 113 H Creatinine 2.1 H 2.8 H Glucose POC Glucose 118 H Lactic Acid Calcium 10.7 H Ionized Calcium Phosphorus 1.70 L D Magnesium 1.60 L Direct Bilirubin AST ALT Alkaline Phosphatase Lactate Dehydrogenase Troponin T C-Reactive Protein Total Protein Albumin Prealbumin Triglycerides Cholesterol LDL Cholesterol Direct HDL Cholesterol 25-OH Vitamin D Total PTH Intact Urine pH Urine WBC (Auto) Urine Creatinine Urine Total Protein Fluid Total Protein Vancomycin Trough Rheumatoid Factor Complement C4 Miscellaneous Test Crossmatch 02/15/17 02/15/17 02/15/17 06:06 11:31 17:52 WBC RBC Hgb Hct MCV MCH MCHC RDW Plt Count Lymph % (Auto) [place] % (Auto) Lymph # [place] # Baso # Seg Neutrophils % Seg Neuts % (Manual) Lymphocytes % (Manual) Monocytes % (Manual) Eosinophils % (Manual) Basophils % (Manual) Nucleated RBC % Seg Neutrophils # Seg Neutrophils # Man Lymphocytes # (Manual) Monocytes # (Manual) Eosinophils # (Manual) Basophils # (Manual) PT INR Fibrinogen dRVVT Confirm Interp Factor V Activity POC ABG pH POC ABG pCO2 POC ABG pO2 ABG pO2 ABG HCO3 ABG Base Excess ABG Hemoglobin Oxyhemoglobin Sodium Potassium Chloride Carbon Dioxide BUN Creatinine Glucose POC Glucose 115 H 129 H 201 H Lactic Acid Calcium Ionized Calcium Phosphorus Magnesium Direct Bilirubin AST ALT Alkaline Phosphatase Lactate Dehydrogenase Troponin T C-Reactive Protein Total Protein Albumin Prealbumin Triglycerides Cholesterol LDL Cholesterol Direct HDL Cholesterol 25-OH Vitamin D Total PTH Intact Urine pH Urine WBC (Auto) Urine Creatinine Urine Total Protein Fluid Total Protein Vancomycin Trough Rheumatoid Factor Complement C4 Miscellaneous Test Crossmatch 02/15/17 02/15/17 02/15/17 19:08 19:08 19:08 WBC RBC Hgb Hct MCV MCH MCHC RDW Plt Count Lymph % (Auto) [place] % (Auto) Lymph # [place] # Baso # Seg Neutrophils % Seg Neuts % (Manual) Lymphocytes % (Manual) Monocytes % (Manual) Eosinophils % (Manual) Basophils % (Manual) Nucleated RBC % Seg Neutrophils # Seg Neutrophils # Man Lymphocytes # (Manual) Monocytes # (Manual) Eosinophils # (Manual) Basophils # (Manual) PT INR Fibrinogen dRVVT Confirm Interp Factor V Activity POC ABG pH POC ABG pCO2 POC ABG pO2 ABG pO2 ABG HCO3 ABG Base Excess ABG Hemoglobin Oxyhemoglobin Sodium Potassium Chloride Carbon Dioxide BUN Creatinine Glucose POC Glucose Lactic Acid Calcium Ionized Calcium 6.0 H Phosphorus Magnesium Direct Bilirubin AST ALT Alkaline Phosphatase Lactate Dehydrogenase Troponin T C-Reactive Protein Total Protein Albumin Prealbumin Triglycerides Cholesterol LDL Cholesterol Direct HDL Cholesterol 25-OH Vitamin D Total 13 L PTH Intact 10.88 L Urine pH Urine WBC (Auto) Urine Creatinine Urine Total Protein Fluid Total Protein Vancomycin Trough Rheumatoid Factor Complement C4 Miscellaneous Test Crossmatch 02/16/17 02/16/17 02/16/17 05:12 06:00 12:39 WBC RBC Hgb Hct MCV MCH MCHC RDW Plt Count Lymph % (Auto) [place] % (Auto) Lymph # [place] # Baso # Seg Neutrophils % Seg Neuts % (Manual) Lymphocytes % (Manual) Monocytes % (Manual) Eosinophils % (Manual) Basophils % (Manual) Nucleated RBC % Seg Neutrophils # Seg Neutrophils # Man Lymphocytes # (Manual) Monocytes # (Manual) Eosinophils # (Manual) Basophils # (Manual) PT INR Fibrinogen dRVVT Confirm Interp Factor V Activity POC ABG pH POC ABG pCO2 POC ABG pO2 ABG pO2 ABG HCO3 ABG Base Excess ABG Hemoglobin Oxyhemoglobin Sodium Potassium Chloride Carbon Dioxide BUN 74 H Creatinine 1.7 H Glucose 102 H POC Glucose 125 H 109 H Lactic Acid Calcium Ionized Calcium Phosphorus 2.10 L D Magnesium Direct Bilirubin AST ALT Alkaline Phosphatase Lactate Dehydrogenase Troponin T C-Reactive Protein Total Protein Albumin Prealbumin Triglycerides Cholesterol LDL Cholesterol Direct HDL Cholesterol 25-OH Vitamin D Total PTH Intact Urine pH Urine WBC (Auto) Urine Creatinine Urine Total Protein Fluid Total Protein Vancomycin Trough Rheumatoid Factor Complement C4 Miscellaneous Test Crossmatch 02/16/17 02/16/17 02/17/17 17:31 23:57 05:30 WBC RBC Hgb Hct MCV MCH MCHC RDW Plt Count Lymph % (Auto) [place] % (Auto) Lymph # [place] # Baso # Seg Neutrophils % Seg Neuts % (Manual) Lymphocytes % (Manual) Monocytes % (Manual) Eosinophils % (Manual) Basophils % (Manual) Nucleated RBC % Seg Neutrophils # Seg Neutrophils # Man Lymphocytes # (Manual) Monocytes # (Manual) Eosinophils # (Manual) Basophils # (Manual) PT INR Fibrinogen dRVVT Confirm Interp Factor V Activity POC ABG pH POC ABG pCO2 POC ABG pO2 ABG pO2 ABG HCO3 ABG Base Excess ABG Hemoglobin Oxyhemoglobin Sodium Potassium Chloride Carbon Dioxide BUN Creatinine Glucose POC Glucose 106 H 127 H 122 H Lactic Acid Calcium Ionized Calcium Phosphorus Magnesium Direct Bilirubin AST ALT Alkaline Phosphatase Lactate Dehydrogenase Troponin T C-Reactive Protein Total Protein Albumin Prealbumin Triglycerides Cholesterol LDL Cholesterol Direct HDL Cholesterol 25-OH Vitamin D Total PTH Intact Urine pH Urine WBC (Auto) Urine Creatinine Urine Total Protein Fluid Total Protein Vancomycin Trough Rheumatoid Factor Complement C4 Miscellaneous Test Crossmatch 02/17/17 02/17/17 02/17/17 06:00 12:17 17:57 WBC RBC Hgb Hct MCV MCH MCHC RDW Plt Count Lymph % (Auto) [place] % (Auto) Lymph # [place] # Baso # Seg Neutrophils % Seg Neuts % (Manual) Lymphocytes % (Manual) Monocytes % (Manual) Eosinophils % (Manual) Basophils % (Manual) Nucleated RBC % Seg Neutrophils # Seg Neutrophils # Man Lymphocytes # (Manual) Monocytes # (Manual) Eosinophils # (Manual) Basophils # (Manual) PT INR Fibrinogen dRVVT Confirm Interp Factor V Activity POC ABG pH POC ABG pCO2 POC ABG pO2 ABG pO2 ABG HCO3 ABG Base Excess ABG Hemoglobin Oxyhemoglobin Sodium Potassium Chloride Carbon Dioxide BUN 94 H Creatinine 2.3 H Glucose 106 H POC Glucose 173 H 140 H Lactic Acid Calcium Ionized Calcium Phosphorus Magnesium Direct Bilirubin AST ALT Alkaline Phosphatase Lactate Dehydrogenase Troponin T C-Reactive Protein Total Protein Albumin Prealbumin Triglycerides Cholesterol LDL Cholesterol Direct HDL Cholesterol 25-OH Vitamin D Total PTH Intact Urine pH Urine WBC (Auto) Urine Creatinine Urine Total Protein Fluid Total Protein Vancomycin Trough Rheumatoid Factor Complement C4 Miscellaneous Test Crossmatch 02/18/17 02/18/17 02/18/17 00:20 05:30 06:14 WBC RBC Hgb Hct MCV MCH MCHC RDW Plt Count Lymph % (Auto) [place] % (Auto) Lymph # [place] # Baso # Seg Neutrophils % Seg Neuts % (Manual) Lymphocytes % (Manual) Monocytes % (Manual) Eosinophils % (Manual) Basophils % (Manual) Nucleated RBC % Seg Neutrophils # Seg Neutrophils # Man Lymphocytes # (Manual) Monocytes # (Manual) Eosinophils # (Manual) Basophils # (Manual) PT INR Fibrinogen dRVVT Confirm Interp Factor V Activity POC ABG pH POC ABG pCO2 POC ABG pO2 ABG pO2 ABG HCO3 ABG Base Excess ABG Hemoglobin Oxyhemoglobin Sodium 136 L Potassium Chloride 97.5 L Carbon Dioxide BUN 73 H Creatinine 1.9 H Glucose POC Glucose 132 H 106 H Lactic Acid Calcium Ionized Calcium Phosphorus Magnesium Direct Bilirubin AST ALT Alkaline Phosphatase Lactate Dehydrogenase Troponin T C-Reactive Protein Total Protein Albumin Prealbumin Triglycerides Cholesterol LDL Cholesterol Direct HDL Cholesterol 25-OH Vitamin D Total PTH Intact Urine pH Urine WBC (Auto) Urine Creatinine Urine Total Protein Fluid Total Protein Vancomycin Trough Rheumatoid Factor Complement C4 Miscellaneous Test Crossmatch 02/18/17 02/18/17 02/18/17 09:51 11:32 17:59 WBC 13.1 H RBC 2.77 L Hgb 7.6 L Hct 23.9 L MCV MCH MCHC RDW 19.0 H Plt Count Lymph % (Auto) [place] % (Auto) 11.1 H Lymph # [place] # 1.5 H Baso # Seg Neutrophils % Seg Neuts % (Manual) Lymphocytes % (Manual) Monocytes % (Manual) Eosinophils % (Manual) Basophils % (Manual) Nucleated RBC % Seg Neutrophils # 9.1 H Seg Neutrophils # Man Lymphocytes # (Manual) Monocytes # (Manual) Eosinophils # (Manual) Basophils # (Manual) PT INR Fibrinogen dRVVT Confirm Interp Factor V Activity POC ABG pH POC ABG pCO2 POC ABG pO2 ABG pO2 ABG HCO3 ABG Base Excess ABG Hemoglobin Oxyhemoglobin Sodium Potassium Chloride Carbon Dioxide BUN Creatinine Glucose POC Glucose 123 H 119 H Lactic Acid Calcium Ionized Calcium Phosphorus Magnesium Direct Bilirubin AST ALT Alkaline Phosphatase Lactate Dehydrogenase Troponin T C-Reactive Protein Total Protein Albumin Prealbumin Triglycerides Cholesterol LDL Cholesterol Direct HDL Cholesterol 25-OH Vitamin D Total PTH Intact Urine pH Urine WBC (Auto) Urine Creatinine Urine Total Protein Fluid Total Protein Vancomycin Trough Rheumatoid Factor Complement C4 Miscellaneous Test Crossmatch 02/18/17 02/19/17 02/19/17 23:47 05:36 09:45 WBC RBC Hgb Hct MCV MCH 27 L MCHC RDW 19.2 H Plt Count Lymph % (Auto) [place] % (Auto) Lymph # [place] # Baso # Seg Neutrophils % Seg Neuts % (Manual) Lymphocytes % (Manual) Monocytes % (Manual) Eosinophils % (Manual) Basophils % (Manual) Nucleated RBC % Seg Neutrophils # Seg Neutrophils # Man Lymphocytes # (Manual) Monocytes # (Manual) Eosinophils # (Manual) Basophils # (Manual) PT INR Fibrinogen dRVVT Confirm Interp Factor V Activity POC ABG pH POC ABG pCO2 POC ABG pO2 ABG pO2 ABG HCO3 ABG Base Excess ABG Hemoglobin Oxyhemoglobin Sodium Potassium Chloride Carbon Dioxide BUN Creatinine Glucose POC Glucose 110 H 121 H Lactic Acid Calcium Ionized Calcium Phosphorus Magnesium Direct Bilirubin AST ALT Alkaline Phosphatase Lactate Dehydrogenase Troponin T C-Reactive Protein Total Protein Albumin Prealbumin Triglycerides Cholesterol LDL Cholesterol Direct HDL Cholesterol 25-OH Vitamin D Total PTH Intact Urine pH Urine WBC (Auto) Urine Creatinine Urine Total Protein Fluid Total Protein Vancomycin Trough Rheumatoid Factor Complement C4 Miscellaneous Test Crossmatch 02/19/17 02/20/17 02/20/17 09:45 00:10 06:15 WBC RBC Hgb Hct MCV MCH MCHC RDW Plt Count Lymph % (Auto) [place] % (Auto) Lymph # [place] # Baso # Seg Neutrophils % Seg Neuts % (Manual) Lymphocytes % (Manual) Monocytes % (Manual) Eosinophils % (Manual) Basophils % (Manual) Nucleated RBC % Seg Neutrophils # Seg Neutrophils # Man Lymphocytes # (Manual) Monocytes # (Manual) Eosinophils # (Manual) Basophils # (Manual) PT INR Fibrinogen dRVVT Confirm Interp Factor V Activity POC ABG pH POC ABG pCO2 POC ABG pO2 ABG pO2 ABG HCO3 ABG Base Excess ABG Hemoglobin Oxyhemoglobin Sodium 136 L Potassium 5.1 H Chloride 97.6 L Carbon Dioxide 20 L 18 L BUN 110 H 135 H Creatinine 2.6 H 3.2 H Glucose 106 H 110 H POC Glucose 117 H Lactic Acid Calcium Ionized Calcium Phosphorus 4.70 H D 5.60 H Magnesium Direct Bilirubin AST ALT Alkaline Phosphatase Lactate Dehydrogenase Troponin T C-Reactive Protein Total Protein Albumin Prealbumin Triglycerides Cholesterol LDL Cholesterol Direct HDL Cholesterol 25-OH Vitamin D Total PTH Intact Urine pH Urine WBC (Auto) Urine Creatinine Urine Total Protein Fluid Total Protein Vancomycin Trough Rheumatoid Factor Complement C4 Miscellaneous Test Crossmatch 02/20/17 02/20/17 02/21/17 11:30 17:51 00:14 WBC RBC Hgb Hct MCV MCH MCHC RDW Plt Count Lymph % (Auto) [place] % (Auto) Lymph # [place] # Baso # Seg Neutrophils % Seg Neuts % (Manual) Lymphocytes % (Manual) Monocytes % (Manual) Eosinophils % (Manual) Basophils % (Manual) Nucleated RBC % Seg Neutrophils # Seg Neutrophils # Man Lymphocytes # (Manual) Monocytes # (Manual) Eosinophils # (Manual) Basophils # (Manual) PT INR Fibrinogen dRVVT Confirm Interp Factor V Activity POC ABG pH POC ABG pCO2 POC ABG pO2 ABG pO2 ABG HCO3 ABG Base Excess ABG Hemoglobin Oxyhemoglobin Sodium Potassium Chloride Carbon Dioxide BUN Creatinine Glucose POC Glucose 173 H 133 H 125 H Lactic Acid Calcium Ionized Calcium Phosphorus Magnesium Direct Bilirubin AST ALT Alkaline Phosphatase Lactate Dehydrogenase Troponin T C-Reactive Protein Total Protein Albumin Prealbumin Triglycerides Cholesterol LDL Cholesterol Direct HDL Cholesterol 25-OH Vitamin D Total PTH Intact Urine pH Urine WBC (Auto) Urine Creatinine Urine Total Protein Fluid Total Protein Vancomycin Trough Rheumatoid Factor Complement C4 Miscellaneous Test Crossmatch 02/21/17 02/21/17 02/21/17 04:09 05:03 11:58 WBC RBC Hgb Hct MCV MCH MCHC RDW Plt Count Lymph % (Auto) [place] % (Auto) Lymph # [place] # Baso # Seg Neutrophils % Seg Neuts % (Manual) Lymphocytes % (Manual) Monocytes % (Manual) Eosinophils % (Manual) Basophils % (Manual) Nucleated RBC % Seg Neutrophils # Seg Neutrophils # Man Lymphocytes # (Manual) Monocytes # (Manual) Eosinophils # (Manual) Basophils # (Manual) PT INR Fibrinogen dRVVT Confirm Interp Factor V Activity POC ABG pH POC ABG pCO2 POC ABG pO2 ABG pO2 ABG HCO3 ABG Base Excess ABG Hemoglobin Oxyhemoglobin Sodium 135 L Potassium Chloride Carbon Dioxide 20 L BUN 76 H Creatinine 2.0 H Glucose 125 H POC Glucose 134 H 139 H Lactic Acid Calcium Ionized Calcium Phosphorus Magnesium Direct Bilirubin AST ALT Alkaline Phosphatase Lactate Dehydrogenase Troponin T C-Reactive Protein Total Protein Albumin Prealbumin Triglycerides Cholesterol LDL Cholesterol Direct HDL Cholesterol 25-OH Vitamin D Total PTH Intact Urine pH Urine WBC (Auto) Urine Creatinine Urine Total Protein Fluid Total Protein Vancomycin Trough Rheumatoid Factor Complement C4 Miscellaneous Test Crossmatch 02/21/17 02/21/17 02/22/17 17:16 23:41 04:10 WBC RBC Hgb Hct MCV MCH MCHC RDW Plt Count Lymph % (Auto) [place] % (Auto) Lymph # [place] # Baso # Seg Neutrophils % Seg Neuts % (Manual) Lymphocytes % (Manual) Monocytes % (Manual) Eosinophils % (Manual) Basophils % (Manual) Nucleated RBC % Seg Neutrophils # Seg Neutrophils # Man Lymphocytes # (Manual) Monocytes # (Manual) Eosinophils # (Manual) Basophils # (Manual) PT INR Fibrinogen dRVVT Confirm Interp Factor V Activity POC ABG pH POC ABG pCO2 POC ABG pO2 ABG pO2 ABG HCO3 ABG Base Excess ABG Hemoglobin Oxyhemoglobin Sodium 135 L Potassium Chloride 97.7 L Carbon Dioxide 21 L BUN 101 H Creatinine 2.5 H Glucose 116 H POC Glucose 120 H 128 H Lactic Acid Calcium Ionized Calcium Phosphorus Magnesium Direct Bilirubin AST ALT Alkaline Phosphatase Lactate Dehydrogenase Troponin T C-Reactive Protein Total Protein Albumin 1.3 L Prealbumin Triglycerides Cholesterol LDL Cholesterol Direct HDL Cholesterol 25-OH Vitamin D Total PTH Intact Urine pH Urine WBC (Auto) Urine Creatinine Urine Total Protein Fluid Total Protein Vancomycin Trough Rheumatoid Factor Complement C4 Miscellaneous Test Crossmatch 02/22/17 02/22/17 02/22/17 06:03 11:38 18:19 WBC RBC Hgb Hct MCV MCH MCHC RDW Plt Count Lymph % (Auto) [place] % (Auto) Lymph # [place] # Baso # Seg Neutrophils % Seg Neuts % (Manual) Lymphocytes % (Manual) Monocytes % (Manual) Eosinophils % (Manual) Basophils % (Manual) Nucleated RBC % Seg Neutrophils # Seg Neutrophils # Man Lymphocytes # (Manual) Monocytes # (Manual) Eosinophils # (Manual) Basophils # (Manual) PT INR Fibrinogen dRVVT Confirm Interp Factor V Activity POC ABG pH POC ABG pCO2 POC ABG pO2 ABG pO2 ABG HCO3 ABG Base Excess ABG Hemoglobin Oxyhemoglobin Sodium Potassium Chloride Carbon Dioxide BUN Creatinine Glucose POC Glucose 126 H 147 H 121 H Lactic Acid Calcium Ionized Calcium Phosphorus Magnesium Direct Bilirubin AST ALT Alkaline Phosphatase Lactate Dehydrogenase Troponin T C-Reactive Protein Total Protein Albumin Prealbumin Triglycerides Cholesterol LDL Cholesterol Direct HDL Cholesterol 25-OH Vitamin D Total PTH Intact Urine pH Urine WBC (Auto) Urine Creatinine Urine Total Protein Fluid Total Protein Vancomycin Trough Rheumatoid Factor Complement C4 Miscellaneous Test Crossmatch 02/23/17 02/23/17 02/23/17 05:00 05:46 12:27 WBC RBC Hgb Hct MCV MCH MCHC RDW Plt Count Lymph % (Auto) [place] % (Auto) Lymph # [place] # Baso # Seg Neutrophils % Seg Neuts % (Manual) Lymphocytes % (Manual) Monocytes % (Manual) Eosinophils % (Manual) Basophils % (Manual) Nucleated RBC % Seg Neutrophils # Seg Neutrophils # Man Lymphocytes # (Manual) Monocytes # (Manual) Eosinophils # (Manual) Basophils # (Manual) PT INR Fibrinogen dRVVT Confirm Interp Factor V Activity POC ABG pH POC ABG pCO2 POC ABG pO2 ABG pO2 ABG HCO3 ABG Base Excess ABG Hemoglobin Oxyhemoglobin Sodium 136 L Potassium Chloride 97.1 L Carbon Dioxide BUN 50 H Creatinine 1.5 H Glucose POC Glucose 110 H 115 H Lactic Acid Calcium 8.1 L Ionized Calcium Phosphorus 1.90 L D Magnesium Direct Bilirubin AST ALT Alkaline Phosphatase Lactate Dehydrogenase Troponin T C-Reactive Protein Total Protein Albumin Prealbumin Triglycerides Cholesterol LDL Cholesterol Direct HDL Cholesterol 25-OH Vitamin D Total PTH Intact Urine pH Urine WBC (Auto) Urine Creatinine Urine Total Protein Fluid Total Protein Vancomycin Trough Rheumatoid Factor Complement C4 Miscellaneous Test Crossmatch 02/23/17 02/23/17 02/24/17 18:02 23:18 05:04 WBC RBC Hgb Hct MCV MCH MCHC RDW Plt Count Lymph % (Auto) [place] % (Auto) Lymph # [place] # Baso # Seg Neutrophils % Seg Neuts % (Manual) Lymphocytes % (Manual) Monocytes % (Manual) Eosinophils % (Manual) Basophils % (Manual) Nucleated RBC % Seg Neutrophils # Seg Neutrophils # Man Lymphocytes # (Manual) Monocytes # (Manual) Eosinophils # (Manual) Basophils # (Manual) PT INR Fibrinogen dRVVT Confirm Interp Factor V Activity POC ABG pH POC ABG pCO2 POC ABG pO2 ABG pO2 ABG HCO3 ABG Base Excess ABG Hemoglobin Oxyhemoglobin Sodium Potassium Chloride Carbon Dioxide BUN Creatinine Glucose POC Glucose 111 H 126 H 121 H Lactic Acid Calcium Ionized Calcium Phosphorus Magnesium Direct Bilirubin AST ALT Alkaline Phosphatase Lactate Dehydrogenase Troponin T C-Reactive Protein Total Protein Albumin Prealbumin Triglycerides Cholesterol LDL Cholesterol Direct HDL Cholesterol 25-OH Vitamin D Total PTH Intact Urine pH Urine WBC (Auto) Urine Creatinine Urine Total Protein Fluid Total Protein Vancomycin Trough Rheumatoid Factor Complement C4 Miscellaneous Test Crossmatch 02/24/17 02/24/17 02/24/17 05:20 10:05 11:34 WBC RBC 2.95 L Hgb 8.4 L Hct 25.7 L MCV MCH MCHC RDW 20.8 H Plt Count Lymph % (Auto) [place] % (Auto) Lymph # [place] # Baso # Seg Neutrophils % 71.8 H Seg Neuts % (Manual) Lymphocytes % (Manual) Monocytes % (Manual) Eosinophils % (Manual) Basophils % (Manual) Nucleated RBC % Seg Neutrophils # Seg Neutrophils # Man Lymphocytes # (Manual) Monocytes # (Manual) Eosinophils # (Manual) Basophils # (Manual) PT INR Fibrinogen dRVVT Confirm Interp Factor V Activity POC ABG pH POC ABG pCO2 POC ABG pO2 ABG pO2 ABG HCO3 ABG Base Excess ABG Hemoglobin Oxyhemoglobin Sodium 136 L Potassium Chloride 95.5 L Carbon Dioxide BUN 76 H Creatinine 2.2 H Glucose 109 H POC Glucose 123 H Lactic Acid Calcium Ionized Calcium Phosphorus Magnesium Direct Bilirubin AST ALT Alkaline Phosphatase Lactate Dehydrogenase Troponin T C-Reactive Protein Total Protein Albumin Prealbumin Triglycerides Cholesterol LDL Cholesterol Direct HDL Cholesterol 25-OH Vitamin D Total PTH Intact Urine pH Urine WBC (Auto) Urine Creatinine Urine Total Protein Fluid Total Protein Vancomycin Trough Rheumatoid Factor Complement C4 Miscellaneous Test Crossmatch 02/24/17 02/24/17 02/25/17 17:43 23:02 05:00 WBC RBC Hgb Hct MCV MCH MCHC RDW Plt Count Lymph % (Auto) [place] % (Auto) Lymph # [place] # Baso # Seg Neutrophils % Seg Neuts % (Manual) Lymphocytes % (Manual) Monocytes % (Manual) Eosinophils % (Manual) Basophils % (Manual) Nucleated RBC % Seg Neutrophils # Seg Neutrophils # Man Lymphocytes # (Manual) Monocytes # (Manual) Eosinophils # (Manual) Basophils # (Manual) PT INR Fibrinogen dRVVT Confirm Interp Factor V Activity POC ABG pH POC ABG pCO2 POC ABG pO2 ABG pO2 ABG HCO3 ABG Base Excess ABG Hemoglobin Oxyhemoglobin Sodium Potassium Chloride 96.8 L Carbon Dioxide BUN 94 H Creatinine 2.8 H Glucose 118 H POC Glucose 128 H 144 H Lactic Acid Calcium Ionized Calcium Phosphorus Magnesium Direct Bilirubin AST ALT Alkaline Phosphatase Lactate Dehydrogenase Troponin T C-Reactive Protein Total Protein Albumin Prealbumin Triglycerides Cholesterol LDL Cholesterol Direct HDL Cholesterol 25-OH Vitamin D Total PTH Intact Urine pH Urine WBC (Auto) Urine Creatinine Urine Total Protein Fluid Total Protein Vancomycin Trough Rheumatoid Factor Complement C4 Miscellaneous Test Crossmatch 02/25/17 02/25/17 02/25/17 05:32 11:44 18:18 WBC RBC Hgb Hct MCV MCH MCHC RDW Plt Count Lymph % (Auto) [place] % (Auto) Lymph # [place] # Baso # Seg Neutrophils % Seg Neuts % (Manual) Lymphocytes % (Manual) Monocytes % (Manual) Eosinophils % (Manual) Basophils % (Manual) Nucleated RBC % Seg Neutrophils # Seg Neutrophils # Man Lymphocytes # (Manual) Monocytes # (Manual) Eosinophils # (Manual) Basophils # (Manual) PT INR Fibrinogen dRVVT Confirm Interp Factor V Activity POC ABG pH POC ABG pCO2 POC ABG pO2 ABG pO2 ABG HCO3 ABG Base Excess ABG Hemoglobin Oxyhemoglobin Sodium Potassium Chloride Carbon Dioxide BUN Creatinine Glucose POC Glucose 118 H 106 H 210 H Lactic Acid Calcium Ionized Calcium Phosphorus Magnesium Direct Bilirubin AST ALT Alkaline Phosphatase Lactate Dehydrogenase Troponin T C-Reactive Protein Total Protein Albumin Prealbumin Triglycerides Cholesterol LDL Cholesterol Direct HDL Cholesterol 25-OH Vitamin D Total PTH Intact Urine pH Urine WBC (Auto) Urine Creatinine Urine Total Protein Fluid Total Protein Vancomycin Trough Rheumatoid Factor Complement C4 Miscellaneous Test Crossmatch 02/26/17 02/26/17 02/26/17 00:07 05:14 12:07 WBC RBC Hgb Hct MCV MCH MCHC RDW Plt Count Lymph % (Auto) [place] % (Auto) Lymph # [place] # Baso # Seg Neutrophils % Seg Neuts % (Manual) Lymphocytes % (Manual) Monocytes % (Manual) Eosinophils % (Manual) Basophils % (Manual) Nucleated RBC % Seg Neutrophils # Seg Neutrophils # Man Lymphocytes # (Manual) Monocytes # (Manual) Eosinophils # (Manual) Basophils # (Manual) PT INR Fibrinogen dRVVT Confirm Interp Factor V Activity POC ABG pH POC ABG pCO2 POC ABG pO2 ABG pO2 ABG HCO3 ABG Base Excess ABG Hemoglobin Oxyhemoglobin Sodium Potassium Chloride Carbon Dioxide BUN Creatinine Glucose POC Glucose 136 H 142 H 132 H Lactic Acid Calcium Ionized Calcium Phosphorus Magnesium Direct Bilirubin AST ALT Alkaline Phosphatase Lactate Dehydrogenase Troponin T C-Reactive Protein Total Protein Albumin Prealbumin Triglycerides Cholesterol LDL Cholesterol Direct HDL Cholesterol 25-OH Vitamin D Total PTH Intact Urine pH Urine WBC (Auto) Urine Creatinine Urine Total Protein Fluid Total Protein Vancomycin Trough Rheumatoid Factor Complement C4 Miscellaneous Test Crossmatch 02/26/17 02/26/17 02/27/17 18:35 23:54 06:25 WBC RBC Hgb Hct MCV MCH MCHC RDW Plt Count Lymph % (Auto) [place] % (Auto) Lymph # [place] # Baso # Seg Neutrophils % Seg Neuts % (Manual) Lymphocytes % (Manual) Monocytes % (Manual) Eosinophils % (Manual) Basophils % (Manual) Nucleated RBC % Seg Neutrophils # Seg Neutrophils # Man Lymphocytes # (Manual) Monocytes # (Manual) Eosinophils # (Manual) Basophils # (Manual) PT INR Fibrinogen dRVVT Confirm Interp Factor V Activity POC ABG pH POC ABG pCO2 POC ABG pO2 ABG pO2 ABG HCO3 ABG Base Excess ABG Hemoglobin Oxyhemoglobin Sodium Potassium Chloride Carbon Dioxide BUN Creatinine Glucose POC Glucose 155 H 150 H 138 H Lactic Acid Calcium Ionized Calcium Phosphorus Magnesium Direct Bilirubin AST ALT Alkaline Phosphatase Lactate Dehydrogenase Troponin T C-Reactive Protein Total Protein Albumin Prealbumin Triglycerides Cholesterol LDL Cholesterol Direct HDL Cholesterol 25-OH Vitamin D Total PTH Intact Urine pH Urine WBC (Auto) Urine Creatinine Urine Total Protein Fluid Total Protein Vancomycin Trough Rheumatoid Factor Complement C4 Miscellaneous Test Crossmatch 02/27/17 02/27/17 02/27/17 08:50 11:50 17:38 WBC RBC Hgb Hct MCV MCH MCHC RDW Plt Count Lymph % (Auto) [place] % (Auto) Lymph # [place] # Baso # Seg Neutrophils % Seg Neuts % (Manual) Lymphocytes % (Manual) Monocytes % (Manual) Eosinophils % (Manual) Basophils % (Manual) Nucleated RBC % Seg Neutrophils # Seg Neutrophils # Man Lymphocytes # (Manual) Monocytes # (Manual) Eosinophils # (Manual) Basophils # (Manual) PT INR Fibrinogen dRVVT Confirm Interp Factor V Activity POC ABG pH POC ABG pCO2 POC ABG pO2 ABG pO2 ABG HCO3 ABG Base Excess ABG Hemoglobin Oxyhemoglobin Sodium Potassium 3.2 L Chloride Carbon Dioxide BUN 95 H Creatinine 2.7 H Glucose 179 H POC Glucose 150 H 133 H Lactic Acid Calcium Ionized Calcium Phosphorus Magnesium Direct Bilirubin AST ALT Alkaline Phosphatase Lactate Dehydrogenase Troponin T C-Reactive Protein Total Protein Albumin Prealbumin Triglycerides Cholesterol LDL Cholesterol Direct HDL Cholesterol 25-OH Vitamin D Total PTH Intact Urine pH Urine WBC (Auto) Urine Creatinine Urine Total Protein Fluid Total Protein Vancomycin Trough Rheumatoid Factor Complement C4 Miscellaneous Test Crossmatch 02/27/17 02/28/17 02/28/17 23:55 05:23 06:10 WBC RBC Hgb Hct MCV MCH MCHC RDW Plt Count Lymph % (Auto) [place] % (Auto) Lymph # [place] # Baso # Seg Neutrophils % Seg Neuts % (Manual) Lymphocytes % (Manual) Monocytes % (Manual) Eosinophils % (Manual) Basophils % (Manual) Nucleated RBC % Seg Neutrophils # Seg Neutrophils # Man Lymphocytes # (Manual) Monocytes # (Manual) Eosinophils # (Manual) Basophils # (Manual) PT INR Fibrinogen dRVVT Confirm Interp Factor V Activity POC ABG pH POC ABG pCO2 POC ABG pO2 ABG pO2 ABG HCO3 ABG Base Excess ABG Hemoglobin Oxyhemoglobin Sodium 134 L Potassium 3.0 L Chloride 94.9 L Carbon Dioxide BUN 53 H Creatinine 1.9 H Glucose 138 H POC Glucose 134 H 164 H Lactic Acid Calcium Ionized Calcium Phosphorus 2.00 L D Magnesium Direct Bilirubin AST ALT Alkaline Phosphatase Lactate Dehydrogenase Troponin T C-Reactive Protein Total Protein Albumin Prealbumin Triglycerides Cholesterol LDL Cholesterol Direct HDL Cholesterol 25-OH Vitamin D Total PTH Intact Urine pH Urine WBC (Auto) Urine Creatinine Urine Total Protein Fluid Total Protein Vancomycin Trough Rheumatoid Factor Complement C4 Miscellaneous Test Crossmatch 02/28/17 02/28/17 02/28/17 12:18 17:54 23:47 WBC RBC Hgb Hct MCV MCH MCHC RDW Plt Count Lymph % (Auto) [place] % (Auto) Lymph # [place] # Baso # Seg Neutrophils % Seg Neuts % (Manual) Lymphocytes % (Manual) Monocytes % (Manual) Eosinophils % (Manual) Basophils % (Manual) Nucleated RBC % Seg Neutrophils # Seg Neutrophils # Man Lymphocytes # (Manual) Monocytes # (Manual) Eosinophils # (Manual) Basophils # (Manual) PT INR Fibrinogen dRVVT Confirm Interp Factor V Activity POC ABG pH POC ABG pCO2 POC ABG pO2 ABG pO2 ABG HCO3 ABG Base Excess ABG Hemoglobin Oxyhemoglobin Sodium Potassium Chloride Carbon Dioxide BUN Creatinine Glucose POC Glucose 135 H 140 H 144 H Lactic Acid Calcium Ionized Calcium Phosphorus Magnesium Direct Bilirubin AST ALT Alkaline Phosphatase Lactate Dehydrogenase Troponin T C-Reactive Protein Total Protein Albumin Prealbumin Triglycerides Cholesterol LDL Cholesterol Direct HDL Cholesterol 25-OH Vitamin D Total PTH Intact Urine pH Urine WBC (Auto) Urine Creatinine Urine Total Protein Fluid Total Protein Vancomycin Trough Rheumatoid Factor Complement C4 Miscellaneous Test Crossmatch 03/01/17 03/01/17 03/01/17 04:00 12:02 17:13 WBC RBC Hgb Hct MCV MCH MCHC RDW Plt Count Lymph % (Auto) [place] % (Auto) Lymph # [place] # Baso # Seg Neutrophils % Seg Neuts % (Manual) Lymphocytes % (Manual) Monocytes % (Manual) Eosinophils % (Manual) Basophils % (Manual) Nucleated RBC % Seg Neutrophils # Seg Neutrophils # Man Lymphocytes # (Manual) Monocytes # (Manual) Eosinophils # (Manual) Basophils # (Manual) PT INR Fibrinogen dRVVT Confirm Interp Factor V Activity POC ABG pH POC ABG pCO2 POC ABG pO2 ABG pO2 ABG HCO3 ABG Base Excess ABG Hemoglobin Oxyhemoglobin Sodium Potassium 3.0 L Chloride 97.0 L Carbon Dioxide BUN 81 H Creatinine 2.6 H Glucose 121 H POC Glucose 165 H 126 H Lactic Acid Calcium Ionized Calcium Phosphorus Magnesium Direct Bilirubin AST ALT Alkaline Phosphatase Lactate Dehydrogenase Troponin T C-Reactive Protein Total Protein Albumin Prealbumin Triglycerides Cholesterol LDL Cholesterol Direct HDL Cholesterol 25-OH Vitamin D Total PTH Intact Urine pH Urine WBC (Auto) Urine Creatinine Urine Total Protein Fluid Total Protein Vancomycin Trough Rheumatoid Factor Complement C4 Miscellaneous Test Crossmatch 03/02/17 03/02/17 03/02/17 00:10 03:05 05:20 WBC RBC Hgb Hct MCV MCH MCHC RDW Plt Count Lymph % (Auto) [place] % (Auto) Lymph # [place] # Baso # Seg Neutrophils % Seg Neuts % (Manual) Lymphocytes % (Manual) Monocytes % (Manual) Eosinophils % (Manual) Basophils % (Manual) Nucleated RBC % Seg Neutrophils # Seg Neutrophils # Man Lymphocytes # (Manual) Monocytes # (Manual) Eosinophils # (Manual) Basophils # (Manual) PT INR Fibrinogen dRVVT Confirm Interp Factor V Activity POC ABG pH POC ABG pCO2 POC ABG pO2 ABG pO2 ABG HCO3 ABG Base Excess ABG Hemoglobin Oxyhemoglobin Sodium Potassium 3.0 L Chloride Carbon Dioxide BUN 41 H Creatinine 1.6 H Glucose 130 H POC Glucose 129 H 173 H Lactic Acid Calcium Ionized Calcium Phosphorus 1.70 L D Magnesium 1.40 L Direct Bilirubin AST ALT Alkaline Phosphatase Lactate Dehydrogenase Troponin T C-Reactive Protein Total Protein Albumin Prealbumin Triglycerides Cholesterol LDL Cholesterol Direct HDL Cholesterol 25-OH Vitamin D Total PTH Intact Urine pH Urine WBC (Auto) Urine Creatinine Urine Total Protein Fluid Total Protein Vancomycin Trough Rheumatoid Factor Complement C4 Miscellaneous Test Crossmatch 03/02/17 03/02/17 03/02/17 11:49 16:38 23:46 WBC RBC Hgb Hct MCV MCH MCHC RDW Plt Count Lymph % (Auto) [place] % (Auto) Lymph # [place] # Baso # Seg Neutrophils % Seg Neuts % (Manual) Lymphocytes % (Manual) Monocytes % (Manual) Eosinophils % (Manual) Basophils % (Manual) Nucleated RBC % Seg Neutrophils # Seg Neutrophils # Man Lymphocytes # (Manual) Monocytes # (Manual) Eosinophils # (Manual) Basophils # (Manual) PT INR Fibrinogen dRVVT Confirm Interp Factor V Activity POC ABG pH POC ABG pCO2 POC ABG pO2 ABG pO2 ABG HCO3 ABG Base Excess ABG Hemoglobin Oxyhemoglobin Sodium Potassium Chloride Carbon Dioxide BUN Creatinine Glucose POC Glucose 129 H 141 H 119 H Lactic Acid Calcium Ionized Calcium Phosphorus Magnesium Direct Bilirubin AST ALT Alkaline Phosphatase Lactate Dehydrogenase Troponin T C-Reactive Protein Total Protein Albumin Prealbumin Triglycerides Cholesterol LDL Cholesterol Direct HDL Cholesterol 25-OH Vitamin D Total PTH Intact Urine pH Urine WBC (Auto) Urine Creatinine Urine Total Protein Fluid Total Protein Vancomycin Trough Rheumatoid Factor Complement C4 Miscellaneous Test Crossmatch 03/03/17 03/03/17 03/03/17 04:00 11:59 18:08 WBC RBC Hgb Hct MCV MCH MCHC RDW Plt Count Lymph % (Auto) [place] % (Auto) Lymph # [place] # Baso # Seg Neutrophils % Seg Neuts % (Manual) Lymphocytes % (Manual) Monocytes % (Manual) Eosinophils % (Manual) Basophils % (Manual) Nucleated RBC % Seg Neutrophils # Seg Neutrophils # Man Lymphocytes # (Manual) Monocytes # (Manual) Eosinophils # (Manual) Basophils # (Manual) PT INR Fibrinogen dRVVT Confirm Interp Factor V Activity POC ABG pH POC ABG pCO2 POC ABG pO2 ABG pO2 ABG HCO3 ABG Base Excess ABG Hemoglobin Oxyhemoglobin Sodium Potassium Chloride Carbon Dioxide BUN 70 H Creatinine 2.3 H Glucose POC Glucose 125 H 131 H Lactic Acid Calcium Ionized Calcium Phosphorus Magnesium Direct Bilirubin AST ALT Alkaline Phosphatase Lactate Dehydrogenase Troponin T C-Reactive Protein Total Protein Albumin Prealbumin Triglycerides Cholesterol LDL Cholesterol Direct HDL Cholesterol 25-OH Vitamin D Total PTH Intact Urine pH Urine WBC (Auto) Urine Creatinine Urine Total Protein Fluid Total Protein Vancomycin Trough Rheumatoid Factor Complement C4 Miscellaneous Test Crossmatch 03/03/17 03/03/17 03/04/17 20:17 23:43 05:21 WBC RBC Hgb Hct MCV MCH MCHC RDW Plt Count Lymph % (Auto) [place] % (Auto) Lymph # [place] # Baso # Seg Neutrophils % Seg Neuts % (Manual) Lymphocytes % (Manual) Monocytes % (Manual) Eosinophils % (Manual) Basophils % (Manual) Nucleated RBC % Seg Neutrophils # Seg Neutrophils # Man Lymphocytes # (Manual) Monocytes # (Manual) Eosinophils # (Manual) Basophils # (Manual) PT INR Fibrinogen dRVVT Confirm Interp Factor V Activity POC ABG pH 7.518 H POC ABG pCO2 28.8 L POC ABG pO2 61 L ABG pO2 ABG HCO3 ABG Base Excess ABG Hemoglobin Oxyhemoglobin Sodium Potassium Chloride Carbon Dioxide BUN Creatinine Glucose POC Glucose 122 H 130 H Lactic Acid Calcium Ionized Calcium Phosphorus Magnesium Direct Bilirubin AST ALT Alkaline Phosphatase Lactate Dehydrogenase Troponin T C-Reactive Protein Total Protein Albumin Prealbumin Triglycerides Cholesterol LDL Cholesterol Direct HDL Cholesterol 25-OH Vitamin D Total PTH Intact Urine pH Urine WBC (Auto) Urine Creatinine Urine Total Protein Fluid Total Protein Vancomycin Trough Rheumatoid Factor Complement C4 Miscellaneous Test Crossmatch 03/04/17 03/05/17 03/06/17 06:10 06:15 03:52 WBC RBC Hgb Hct MCV MCH MCHC RDW Plt Count Lymph % (Auto) [place] % (Auto) Lymph # [place] # Baso # Seg Neutrophils % Seg Neuts % (Manual) Lymphocytes % (Manual) Monocytes % (Manual) Eosinophils % (Manual) Basophils % (Manual) Nucleated RBC % Seg Neutrophils # Seg Neutrophils # Man Lymphocytes # (Manual) Monocytes # (Manual) Eosinophils # (Manual) Basophils # (Manual) PT INR Fibrinogen dRVVT Confirm Interp Factor V Activity POC ABG pH POC ABG pCO2 POC ABG pO2 ABG pO2 ABG HCO3 ABG Base Excess ABG Hemoglobin Oxyhemoglobin Sodium 135 L 136 L Potassium 5.2 H 5.9 H Chloride 95.8 L 97.7 L 96.0 L Carbon Dioxide 21 L 21 L BUN 40 H 56 H 70 H Creatinine 1.7 H 2.4 H 3.0 H Glucose 118 H POC Glucose Lactic Acid Calcium Ionized Calcium Phosphorus 4.80 H D 6.00 H D Magnesium 2.60 H Direct Bilirubin AST ALT Alkaline Phosphatase 165 H Lactate Dehydrogenase Troponin T C-Reactive Protein Total Protein Albumin 1.5 L Prealbumin Triglycerides Cholesterol LDL Cholesterol Direct HDL Cholesterol 25-OH Vitamin D Total PTH Intact Urine pH Urine WBC (Auto) Urine Creatinine Urine Total Protein Fluid Total Protein Vancomycin Trough Rheumatoid Factor Complement C4 Miscellaneous Test Crossmatch 03/06/17 03/06/17 03/06/17 11:19 18:40 23:39 WBC RBC Hgb Hct MCV MCH MCHC RDW Plt Count Lymph % (Auto) [place] % (Auto) Lymph # [place] # Baso # Seg Neutrophils % Seg Neuts % (Manual) Lymphocytes % (Manual) Monocytes % (Manual) Eosinophils % (Manual) Basophils % (Manual) Nucleated RBC % Seg Neutrophils # Seg Neutrophils # Man Lymphocytes # (Manual) Monocytes # (Manual) Eosinophils # (Manual) Basophils # (Manual) PT INR Fibrinogen dRVVT Confirm Interp Factor V Activity POC ABG pH POC ABG pCO2 POC ABG pO2 ABG pO2 ABG HCO3 ABG Base Excess ABG Hemoglobin Oxyhemoglobin Sodium Potassium Chloride Carbon Dioxide BUN Creatinine Glucose POC Glucose 108 H 110 H 156 H Lactic Acid Calcium Ionized Calcium Phosphorus Magnesium Direct Bilirubin AST ALT Alkaline Phosphatase Lactate Dehydrogenase Troponin T C-Reactive Protein Total Protein Albumin Prealbumin Triglycerides Cholesterol LDL Cholesterol Direct HDL Cholesterol 25-OH Vitamin D Total PTH Intact Urine pH Urine WBC (Auto) Urine Creatinine Urine Total Protein Fluid Total Protein Vancomycin Trough Rheumatoid Factor Complement C4 Miscellaneous Test Crossmatch 03/07/17 03/07/17 03/07/17 06:04 11:56 23:31 WBC RBC Hgb Hct MCV MCH MCHC RDW Plt Count Lymph % (Auto) [place] % (Auto) Lymph # [place] # Baso # Seg Neutrophils % Seg Neuts % (Manual) Lymphocytes % (Manual) Monocytes % (Manual) Eosinophils % (Manual) Basophils % (Manual) Nucleated RBC % Seg Neutrophils # Seg Neutrophils # Man Lymphocytes # (Manual) Monocytes # (Manual) Eosinophils # (Manual) Basophils # (Manual) PT INR Fibrinogen dRVVT Confirm Interp Factor V Activity POC ABG pH POC ABG pCO2 POC ABG pO2 ABG pO2 ABG HCO3 ABG Base Excess ABG Hemoglobin Oxyhemoglobin Sodium Potassium Chloride 97.5 L Carbon Dioxide BUN 28 H Creatinine 1.5 H Glucose POC Glucose 106 H 131 H Lactic Acid Calcium 7.9 L Ionized Calcium Phosphorus Magnesium Direct Bilirubin AST ALT Alkaline Phosphatase Lactate Dehydrogenase Troponin T C-Reactive Protein Total Protein Albumin Prealbumin Triglycerides Cholesterol LDL Cholesterol Direct HDL Cholesterol 25-OH Vitamin D Total PTH Intact Urine pH Urine WBC (Auto) Urine Creatinine Urine Total Protein Fluid Total Protein Vancomycin Trough Rheumatoid Factor Complement C4 Miscellaneous Test Crossmatch 03/08/17 03/08/17 03/08/17 05:15 05:38 11:50 WBC RBC Hgb Hct MCV MCH MCHC RDW Plt Count Lymph % (Auto) [place] % (Auto) Lymph # [place] # Baso # Seg Neutrophils % Seg Neuts % (Manual) Lymphocytes % (Manual) Monocytes % (Manual) Eosinophils % (Manual) Basophils % (Manual) Nucleated RBC % Seg Neutrophils # Seg Neutrophils # Man Lymphocytes # (Manual) Monocytes # (Manual) Eosinophils # (Manual) Basophils # (Manual) PT INR Fibrinogen dRVVT Confirm Interp Factor V Activity POC ABG pH POC ABG pCO2 POC ABG pO2 ABG pO2 ABG HCO3 ABG Base Excess ABG Hemoglobin Oxyhemoglobin Sodium 135 L Potassium Chloride 96.6 L Carbon Dioxide 20 L BUN 46 H Creatinine 2.3 H D Glucose 117 H POC Glucose 156 H 131 H Lactic Acid Calcium Ionized Calcium Phosphorus Magnesium Direct Bilirubin AST ALT Alkaline Phosphatase Lactate Dehydrogenase Troponin T C-Reactive Protein Total Protein Albumin Prealbumin Triglycerides Cholesterol LDL Cholesterol Direct HDL Cholesterol 25-OH Vitamin D Total PTH Intact Urine pH Urine WBC (Auto) Urine Creatinine Urine Total Protein Fluid Total Protein Vancomycin Trough Rheumatoid Factor Complement C4 Miscellaneous Test Crossmatch 03/08/17 03/09/17 03/09/17 23:34 04:42 05:20 WBC RBC Hgb Hct MCV MCH MCHC RDW Plt Count Lymph % (Auto) [place] % (Auto) Lymph # [place] # Baso # Seg Neutrophils % Seg Neuts % (Manual) Lymphocytes % (Manual) Monocytes % (Manual) Eosinophils % (Manual) Basophils % (Manual) Nucleated RBC % Seg Neutrophils # Seg Neutrophils # Man Lymphocytes # (Manual) Monocytes # (Manual) Eosinophils # (Manual) Basophils # (Manual) PT INR Fibrinogen dRVVT Confirm Interp Factor V Activity POC ABG pH POC ABG pCO2 POC ABG pO2 ABG pO2 ABG HCO3 ABG Base Excess ABG Hemoglobin Oxyhemoglobin Sodium Potassium 3.2 L Chloride Carbon Dioxide BUN 30 H Creatinine 1.7 H Glucose 112 H POC Glucose 125 H 128 H Lactic Acid Calcium 8.2 L Ionized Calcium Phosphorus 1.80 L D Magnesium 1.40 L Direct Bilirubin AST ALT Alkaline Phosphatase Lactate Dehydrogenase Troponin T C-Reactive Protein Total Protein Albumin Prealbumin Triglycerides Cholesterol LDL Cholesterol Direct HDL Cholesterol 25-OH Vitamin D Total PTH Intact Urine pH Urine WBC (Auto) Urine Creatinine Urine Total Protein Fluid Total Protein Vancomycin Trough Rheumatoid Factor Complement C4 Miscellaneous Test Crossmatch 03/09/17 03/09/17 03/10/17 11:48 17:38 00:08 WBC RBC Hgb Hct MCV MCH MCHC RDW Plt Count Lymph % (Auto) [place] % (Auto) Lymph # [place] # Baso # Seg Neutrophils % Seg Neuts % (Manual) Lymphocytes % (Manual) Monocytes % (Manual) Eosinophils % (Manual) Basophils % (Manual) Nucleated RBC % Seg Neutrophils # Seg Neutrophils # Man Lymphocytes # (Manual) Monocytes # (Manual) Eosinophils # (Manual) Basophils # (Manual) PT INR Fibrinogen dRVVT Confirm Interp Factor V Activity POC ABG pH POC ABG pCO2 POC ABG pO2 ABG pO2 ABG HCO3 ABG Base Excess ABG Hemoglobin Oxyhemoglobin Sodium Potassium Chloride Carbon Dioxide BUN Creatinine Glucose POC Glucose 146 H 140 H 137 H Lactic Acid Calcium Ionized Calcium Phosphorus Magnesium Direct Bilirubin AST ALT Alkaline Phosphatase Lactate Dehydrogenase Troponin T C-Reactive Protein Total Protein Albumin Prealbumin Triglycerides Cholesterol LDL Cholesterol Direct HDL Cholesterol 25-OH Vitamin D Total PTH Intact Urine pH Urine WBC (Auto) Urine Creatinine Urine Total Protein Fluid Total Protein Vancomycin Trough Rheumatoid Factor Complement C4 Miscellaneous Test Crossmatch 03/10/17 03/10/17 03/10/17 04:46 06:37 11:22 WBC RBC Hgb Hct MCV MCH MCHC RDW Plt Count Lymph % (Auto) [place] % (Auto) Lymph # [place] # Baso # Seg Neutrophils % Seg Neuts % (Manual) Lymphocytes % (Manual) Monocytes % (Manual) Eosinophils % (Manual) Basophils % (Manual) Nucleated RBC % Seg Neutrophils # Seg Neutrophils # Man Lymphocytes # (Manual) Monocytes # (Manual) Eosinophils # (Manual) Basophils # (Manual) PT INR Fibrinogen dRVVT Confirm Interp Factor V Activity POC ABG pH POC ABG pCO2 POC ABG pO2 ABG pO2 ABG HCO3 ABG Base Excess ABG Hemoglobin Oxyhemoglobin Sodium 135 L Potassium Chloride 96.3 L Carbon Dioxide 21 L BUN 46 H Creatinine 2.2 H Glucose 106 H POC Glucose 115 H 151 H Lactic Acid Calcium 8.2 L Ionized Calcium Phosphorus Magnesium Direct Bilirubin AST ALT Alkaline Phosphatase Lactate Dehydrogenase Troponin T C-Reactive Protein Total Protein Albumin Prealbumin Triglycerides Cholesterol LDL Cholesterol Direct HDL Cholesterol 25-OH Vitamin D Total PTH Intact Urine pH Urine WBC (Auto) Urine Creatinine Urine Total Protein Fluid Total Protein Vancomycin Trough Rheumatoid Factor Complement C4 Miscellaneous Test Crossmatch 03/10/17 03/10/17 03/11/17 17:53 23:46 05:19 WBC RBC Hgb Hct MCV MCH MCHC RDW Plt Count Lymph % (Auto) [place] % (Auto) Lymph # [place] # Baso # Seg Neutrophils % Seg Neuts % (Manual) Lymphocytes % (Manual) Monocytes % (Manual) Eosinophils % (Manual) Basophils % (Manual) Nucleated RBC % Seg Neutrophils # Seg Neutrophils # Man Lymphocytes # (Manual) Monocytes # (Manual) Eosinophils # (Manual) Basophils # (Manual) PT INR Fibrinogen dRVVT Confirm Interp Factor V Activity POC ABG pH POC ABG pCO2 POC ABG pO2 ABG pO2 ABG HCO3 ABG Base Excess ABG Hemoglobin Oxyhemoglobin Sodium Potassium Chloride Carbon Dioxide BUN Creatinine Glucose POC Glucose 137 H 131 H 108 H Lactic Acid Calcium Ionized Calcium Phosphorus Magnesium Direct Bilirubin AST ALT Alkaline Phosphatase Lactate Dehydrogenase Troponin T C-Reactive Protein Total Protein Albumin Prealbumin Triglycerides Cholesterol LDL Cholesterol Direct HDL Cholesterol 25-OH Vitamin D Total PTH Intact Urine pH Urine WBC (Auto) Urine Creatinine Urine Total Protein Fluid Total Protein Vancomycin Trough Rheumatoid Factor Complement C4 Miscellaneous Test Crossmatch 03/11/17 03/11/17 03/11/17 11:37 18:13 23:55 WBC RBC Hgb Hct MCV MCH MCHC RDW Plt Count Lymph % (Auto) [place] % (Auto) Lymph # [place] # Baso # Seg Neutrophils % Seg Neuts % (Manual) Lymphocytes % (Manual) Monocytes % (Manual) Eosinophils % (Manual) Basophils % (Manual) Nucleated RBC % Seg Neutrophils # Seg Neutrophils # Man Lymphocytes # (Manual) Monocytes # (Manual) Eosinophils # (Manual) Basophils # (Manual) PT INR Fibrinogen dRVVT Confirm Interp Factor V Activity POC ABG pH POC ABG pCO2 POC ABG pO2 ABG pO2 ABG HCO3 ABG Base Excess ABG Hemoglobin Oxyhemoglobin Sodium Potassium Chloride Carbon Dioxide BUN Creatinine Glucose POC Glucose 113 H 126 H 134 H Lactic Acid Calcium Ionized Calcium Phosphorus Magnesium Direct Bilirubin AST ALT Alkaline Phosphatase Lactate Dehydrogenase Troponin T C-Reactive Protein Total Protein Albumin Prealbumin Triglycerides Cholesterol LDL Cholesterol Direct HDL Cholesterol 25-OH Vitamin D Total PTH Intact Urine pH Urine WBC (Auto) Urine Creatinine Urine Total Protein Fluid Total Protein Vancomycin Trough Rheumatoid Factor Complement C4 Miscellaneous Test Crossmatch 03/12/17 03/12/17 03/12/17 05:06 11:30 17:39 WBC RBC Hgb Hct MCV MCH MCHC RDW Plt Count Lymph % (Auto) [place] % (Auto) Lymph # [place] # Baso # Seg Neutrophils % Seg Neuts % (Manual) Lymphocytes % (Manual) Monocytes % (Manual) Eosinophils % (Manual) Basophils % (Manual) Nucleated RBC % Seg Neutrophils # Seg Neutrophils # Man Lymphocytes # (Manual) Monocytes # (Manual) Eosinophils # (Manual) Basophils # (Manual) PT INR Fibrinogen dRVVT Confirm Interp Factor V Activity POC ABG pH POC ABG pCO2 POC ABG pO2 ABG pO2 ABG HCO3 ABG Base Excess ABG Hemoglobin Oxyhemoglobin Sodium Potassium Chloride Carbon Dioxide BUN Creatinine Glucose POC Glucose 127 H 144 H 151 H Lactic Acid Calcium Ionized Calcium Phosphorus Magnesium Direct Bilirubin AST ALT Alkaline Phosphatase Lactate Dehydrogenase Troponin T C-Reactive Protein Total Protein Albumin Prealbumin Triglycerides Cholesterol LDL Cholesterol Direct HDL Cholesterol 25-OH Vitamin D Total PTH Intact Urine pH Urine WBC (Auto) Urine Creatinine Urine Total Protein Fluid Total Protein Vancomycin Trough Rheumatoid Factor Complement C4 Miscellaneous Test Crossmatch 03/13/17 03/13/17 03/13/17 05:01 05:39 11:29 WBC RBC Hgb Hct MCV MCH MCHC RDW Plt Count Lymph % (Auto) [place] % (Auto) Lymph # [place] # Baso # Seg Neutrophils % Seg Neuts % (Manual) Lymphocytes % (Manual) Monocytes % (Manual) Eosinophils % (Manual) Basophils % (Manual) Nucleated RBC % Seg Neutrophils # Seg Neutrophils # Man Lymphocytes # (Manual) Monocytes # (Manual) Eosinophils # (Manual) Basophils # (Manual) PT INR Fibrinogen dRVVT Confirm Interp Factor V Activity POC ABG pH POC ABG pCO2 POC ABG pO2 ABG pO2 ABG HCO3 ABG Base Excess ABG Hemoglobin Oxyhemoglobin Sodium 136 L Potassium 3.4 L Chloride 94.6 L Carbon Dioxide BUN 68 H Creatinine 2.9 H Glucose 105 H POC Glucose 123 H 128 H Lactic Acid Calcium Ionized Calcium Phosphorus Magnesium Direct Bilirubin AST ALT Alkaline Phosphatase Lactate Dehydrogenase Troponin T C-Reactive Protein Total Protein Albumin Prealbumin Triglycerides Cholesterol LDL Cholesterol Direct HDL Cholesterol 25-OH Vitamin D Total PTH Intact Urine pH Urine WBC (Auto) Urine Creatinine Urine Total Protein Fluid Total Protein Vancomycin Trough Rheumatoid Factor Complement C4 Miscellaneous Test Crossmatch 03/13/17 03/13/17 03/14/17 17:39 21:53 03:30 WBC RBC Hgb Hct MCV MCH MCHC RDW Plt Count Lymph % (Auto) [place] % (Auto) Lymph # [place] # Baso # Seg Neutrophils % Seg Neuts % (Manual) Lymphocytes % (Manual) Monocytes % (Manual) Eosinophils % (Manual) Basophils % (Manual) Nucleated RBC % Seg Neutrophils # Seg Neutrophils # Man Lymphocytes # (Manual) Monocytes # (Manual) Eosinophils # (Manual) Basophils # (Manual) PT INR Fibrinogen dRVVT Confirm Interp Factor V Activity POC ABG pH POC ABG pCO2 POC ABG pO2 ABG pO2 ABG HCO3 ABG Base Excess ABG Hemoglobin Oxyhemoglobin Sodium 133 L Potassium Chloride 95.7 L Carbon Dioxide 21 L BUN 37 H Creatinine 1.8 H Glucose 138 H POC Glucose 160 H 147 H Lactic Acid Calcium 8.1 L Ionized Calcium Phosphorus 2.10 L D Magnesium 1.60 L Direct Bilirubin AST ALT Alkaline Phosphatase Lactate Dehydrogenase Troponin T C-Reactive Protein Total Protein Albumin Prealbumin Triglycerides Cholesterol LDL Cholesterol Direct HDL Cholesterol 25-OH Vitamin D Total PTH Intact Urine pH Urine WBC (Auto) Urine Creatinine Urine Total Protein Fluid Total Protein Vancomycin Trough Rheumatoid Factor Complement C4 Miscellaneous Test Crossmatch 03/14/17 03/14/17 03/14/17 05:19 11:08 12:51 WBC RBC Hgb Hct MCV MCH MCHC RDW Plt Count Lymph % (Auto) [place] % (Auto) Lymph # [place] # Baso # Seg Neutrophils % Seg Neuts % (Manual) Lymphocytes % (Manual) Monocytes % (Manual) Eosinophils % (Manual) Basophils % (Manual) Nucleated RBC % Seg Neutrophils # Seg Neutrophils # Man Lymphocytes # (Manual) Monocytes # (Manual) Eosinophils # (Manual) Basophils # (Manual) PT INR Fibrinogen dRVVT Confirm Interp Factor V Activity POC ABG pH POC ABG pCO2 POC ABG pO2 ABG pO2 ABG HCO3 ABG Base Excess ABG Hemoglobin Oxyhemoglobin Sodium Potassium Chloride Carbon Dioxide BUN Creatinine Glucose POC Glucose 159 H 144 H Lactic Acid Calcium Ionized Calcium Phosphorus Magnesium Direct Bilirubin AST ALT Alkaline Phosphatase Lactate Dehydrogenase Troponin T C-Reactive Protein 19.50 H Total Protein Albumin Prealbumin Triglycerides Cholesterol LDL Cholesterol Direct HDL Cholesterol 25-OH Vitamin D Total PTH Intact Urine pH Urine WBC (Auto) Urine Creatinine Urine Total Protein Fluid Total Protein Vancomycin Trough Rheumatoid Factor Complement C4 Miscellaneous Test Crossmatch 03/14/17 03/14/17 03/14/17 14:30 16:50 16:55 WBC 17.6 H RBC 2.18 L Hgb 6.0 L Hct 19.8 L* MCV MCH MCHC RDW 19.9 H Plt Count Lymph % (Auto) [place] % (Auto) Lymph # [place] # Baso # Seg Neutrophils % Seg Neuts % (Manual) Lymphocytes % (Manual) 13.0 L Monocytes % (Manual) 15.0 H Eosinophils % (Manual) Basophils % (Manual) Nucleated RBC % Seg Neutrophils # Seg Neutrophils # Man 12.3 H Lymphocytes # (Manual) Monocytes # (Manual) 2.6 H Eosinophils # (Manual) Basophils # (Manual) PT INR Fibrinogen dRVVT Confirm Interp Factor V Activity POC ABG pH POC ABG pCO2 POC ABG pO2 ABG pO2 ABG HCO3 ABG Base Excess ABG Hemoglobin Oxyhemoglobin Sodium Potassium Chloride Carbon Dioxide BUN Creatinine Glucose POC Glucose 156 H Lactic Acid Calcium Ionized Calcium Phosphorus Magnesium Direct Bilirubin AST ALT Alkaline Phosphatase Lactate Dehydrogenase Troponin T C-Reactive Protein Total Protein Albumin Prealbumin Triglycerides Cholesterol LDL Cholesterol Direct HDL Cholesterol 25-OH Vitamin D Total PTH Intact Urine pH Urine WBC (Auto) Urine Creatinine Urine Total Protein Fluid Total Protein Vancomycin Trough Rheumatoid Factor Complement C4 Miscellaneous Test Crossmatch See Detail 03/14/17 03/15/17 03/15/17 23:31 05:03 05:03 WBC 15.2 H RBC 2.42 L Hgb 6.9 L Hct 22.2 L MCV MCH MCHC RDW 18.4 H Plt Count Lymph % (Auto) [place] % (Auto) Lymph # [place] # Baso # Seg Neutrophils % Seg Neuts % (Manual) Lymphocytes % (Manual) Monocytes % (Manual) Eosinophils % (Manual) Basophils % (Manual) Nucleated RBC % Seg Neutrophils # Seg Neutrophils # Man Lymphocytes # (Manual) Monocytes # (Manual) Eosinophils # (Manual) Basophils # (Manual) PT INR Fibrinogen dRVVT Confirm Interp Factor V Activity POC ABG pH POC ABG pCO2 POC ABG pO2 ABG pO2 ABG HCO3 ABG Base Excess ABG Hemoglobin Oxyhemoglobin Sodium Potassium 3.5 L Chloride Carbon Dioxide BUN 54 H Creatinine 2.6 H Glucose 127 H POC Glucose 176 H Lactic Acid Calcium Ionized Calcium Phosphorus Magnesium Direct Bilirubin AST ALT Alkaline Phosphatase Lactate Dehydrogenase Troponin T C-Reactive Protein Total Protein Albumin Prealbumin Triglycerides Cholesterol LDL Cholesterol Direct HDL Cholesterol 25-OH Vitamin D Total PTH Intact Urine pH Urine WBC (Auto) Urine Creatinine Urine Total Protein Fluid Total Protein Vancomycin Trough Rheumatoid Factor Complement C4 Miscellaneous Test Crossmatch 03/15/17 03/15/17 03/15/17 05:04 12:52 17:46 WBC RBC Hgb Hct MCV MCH MCHC RDW Plt Count Lymph % (Auto) [place] % (Auto) Lymph # [place] # Baso # Seg Neutrophils % Seg Neuts % (Manual) Lymphocytes % (Manual) Monocytes % (Manual) Eosinophils % (Manual) Basophils % (Manual) Nucleated RBC % Seg Neutrophils # Seg Neutrophils # Man Lymphocytes # (Manual) Monocytes # (Manual) Eosinophils # (Manual) Basophils # (Manual) PT INR Fibrinogen dRVVT Confirm Interp Factor V Activity POC ABG pH POC ABG pCO2 POC ABG pO2 ABG pO2 ABG HCO3 ABG Base Excess ABG Hemoglobin Oxyhemoglobin Sodium Potassium Chloride Carbon Dioxide BUN Creatinine Glucose POC Glucose 106 H 141 H 170 H Lactic Acid Calcium Ionized Calcium Phosphorus Magnesium Direct Bilirubin AST ALT Alkaline Phosphatase Lactate Dehydrogenase Troponin T C-Reactive Protein Total Protein Albumin Prealbumin Triglycerides Cholesterol LDL Cholesterol Direct HDL Cholesterol 25-OH Vitamin D Total PTH Intact Urine pH Urine WBC (Auto) Urine Creatinine Urine Total Protein Fluid Total Protein Vancomycin Trough Rheumatoid Factor Complement C4 Miscellaneous Test Crossmatch 03/16/17 03/16/17 03/16/17 00:16 03:35 05:15 WBC RBC Hgb Hct MCV MCH MCHC RDW Plt Count Lymph % (Auto) [place] % (Auto) Lymph # [place] # Baso # Seg Neutrophils % Seg Neuts % (Manual) Lymphocytes % (Manual) Monocytes % (Manual) Eosinophils % (Manual) Basophils % (Manual) Nucleated RBC % Seg Neutrophils # Seg Neutrophils # Man Lymphocytes # (Manual) Monocytes # (Manual) Eosinophils # (Manual) Basophils # (Manual) PT INR Fibrinogen dRVVT Confirm Interp Factor V Activity POC ABG pH POC ABG pCO2 POC ABG pO2 ABG pO2 ABG HCO3 ABG Base Excess ABG Hemoglobin Oxyhemoglobin Sodium Potassium 3.5 L Chloride Carbon Dioxide BUN 26 H Creatinine 1.3 H Glucose 129 H POC Glucose 120 H 140 H Lactic Acid Calcium 7.9 L Ionized Calcium Phosphorus 2.20 L D Magnesium Direct Bilirubin AST ALT Alkaline Phosphatase Lactate Dehydrogenase Troponin T C-Reactive Protein Total Protein Albumin Prealbumin Triglycerides Cholesterol LDL Cholesterol Direct HDL Cholesterol 25-OH Vitamin D Total PTH Intact Urine pH Urine WBC (Auto) Urine Creatinine Urine Total Protein Fluid Total Protein Vancomycin Trough Rheumatoid Factor Complement C4 Miscellaneous Test Crossmatch 03/16/17 03/16/17 03/17/17 12:26 18:16 00:00 WBC RBC Hgb Hct MCV MCH MCHC RDW Plt Count Lymph % (Auto) [place] % (Auto) Lymph # [place] # Baso # Seg Neutrophils % Seg Neuts % (Manual) Lymphocytes % (Manual) Monocytes % (Manual) Eosinophils % (Manual) Basophils % (Manual) Nucleated RBC % Seg Neutrophils # Seg Neutrophils # Man Lymphocytes # (Manual) Monocytes # (Manual) Eosinophils # (Manual) Basophils # (Manual) PT INR Fibrinogen dRVVT Confirm Interp Factor V Activity POC ABG pH POC ABG pCO2 POC ABG pO2 ABG pO2 ABG HCO3 ABG Base Excess ABG Hemoglobin Oxyhemoglobin Sodium Potassium Chloride Carbon Dioxide BUN Creatinine Glucose POC Glucose 133 H 107 H 124 H Lactic Acid Calcium Ionized Calcium Phosphorus Magnesium Direct Bilirubin AST ALT Alkaline Phosphatase Lactate Dehydrogenase Troponin T C-Reactive Protein Total Protein Albumin Prealbumin Triglycerides Cholesterol LDL Cholesterol Direct HDL Cholesterol 25-OH Vitamin D Total PTH Intact Urine pH Urine WBC (Auto) Urine Creatinine Urine Total Protein Fluid Total Protein Vancomycin Trough Rheumatoid Factor Complement C4 Miscellaneous Test Crossmatch 03/17/17 03/17/17 03/17/17 04:00 05:57 12:00 WBC RBC Hgb Hct MCV MCH MCHC RDW Plt Count Lymph % (Auto) [place] % (Auto) Lymph # [place] # Baso # Seg Neutrophils % Seg Neuts % (Manual) Lymphocytes % (Manual) Monocytes % (Manual) Eosinophils % (Manual) Basophils % (Manual) Nucleated RBC % Seg Neutrophils # Seg Neutrophils # Man Lymphocytes # (Manual) Monocytes # (Manual) Eosinophils # (Manual) Basophils # (Manual) PT INR Fibrinogen dRVVT Confirm Interp Factor V Activity POC ABG pH POC ABG pCO2 POC ABG pO2 ABG pO2 ABG HCO3 ABG Base Excess ABG Hemoglobin Oxyhemoglobin Sodium 134 L Potassium Chloride 95.1 L Carbon Dioxide BUN 37 H Creatinine 1.8 H Glucose 115 H POC Glucose 141 H 129 H Lactic Acid Calcium 8.3 L Ionized Calcium Phosphorus 5.50 H D Magnesium Direct Bilirubin AST ALT Alkaline Phosphatase Lactate Dehydrogenase Troponin T C-Reactive Protein Total Protein Albumin Prealbumin Triglycerides Cholesterol LDL Cholesterol Direct HDL Cholesterol 25-OH Vitamin D Total PTH Intact Urine pH Urine WBC (Auto) Urine Creatinine Urine Total Protein Fluid Total Protein Vancomycin Trough Rheumatoid Factor Complement C4 Miscellaneous Test Crossmatch 03/17/17 03/18/17 03/18/17 17:23 00:04 04:00 WBC RBC Hgb Hct MCV MCH MCHC RDW Plt Count Lymph % (Auto) [place] % (Auto) Lymph # [place] # Baso # Seg Neutrophils % Seg Neuts % (Manual) Lymphocytes % (Manual) Monocytes % (Manual) Eosinophils % (Manual) Basophils % (Manual) Nucleated RBC % Seg Neutrophils # Seg Neutrophils # Man Lymphocytes # (Manual) Monocytes # (Manual) Eosinophils # (Manual) Basophils # (Manual) PT INR Fibrinogen dRVVT Confirm Interp Factor V Activity POC ABG pH POC ABG pCO2 POC ABG pO2 ABG pO2 ABG HCO3 ABG Base Excess ABG Hemoglobin Oxyhemoglobin Sodium Potassium Chloride Carbon Dioxide BUN 23 H Creatinine 1.3 H Glucose 122 H POC Glucose 155 H 126 H Lactic Acid Calcium 8.3 L Ionized Calcium Phosphorus Magnesium Direct Bilirubin AST ALT Alkaline Phosphatase Lactate Dehydrogenase Troponin T C-Reactive Protein Total Protein Albumin Prealbumin Triglycerides Cholesterol LDL Cholesterol Direct HDL Cholesterol 25-OH Vitamin D Total PTH Intact Urine pH Urine WBC (Auto) Urine Creatinine Urine Total Protein Fluid Total Protein Vancomycin Trough Rheumatoid Factor Complement C4 Miscellaneous Test Crossmatch 03/18/17 03/18/17 03/18/17 05:47 11:15 18:07 WBC RBC Hgb Hct MCV MCH MCHC RDW Plt Count Lymph % (Auto) [place] % (Auto) Lymph # [place] # Baso # Seg Neutrophils % Seg Neuts % (Manual) Lymphocytes % (Manual) Monocytes % (Manual) Eosinophils % (Manual) Basophils % (Manual) Nucleated RBC % Seg Neutrophils # Seg Neutrophils # Man Lymphocytes # (Manual) Monocytes # (Manual) Eosinophils # (Manual) Basophils # (Manual) PT INR Fibrinogen dRVVT Confirm Interp Factor V Activity POC ABG pH POC ABG pCO2 POC ABG pO2 ABG pO2 ABG HCO3 ABG Base Excess ABG Hemoglobin Oxyhemoglobin Sodium Potassium Chloride Carbon Dioxide BUN Creatinine Glucose POC Glucose 139 H 138 H 134 H Lactic Acid Calcium Ionized Calcium Phosphorus Magnesium Direct Bilirubin AST ALT Alkaline Phosphatase Lactate Dehydrogenase Troponin T C-Reactive Protein Total Protein Albumin Prealbumin Triglycerides Cholesterol LDL Cholesterol Direct HDL Cholesterol 25-OH Vitamin D Total PTH Intact Urine pH Urine WBC (Auto) Urine Creatinine Urine Total Protein Fluid Total Protein Vancomycin Trough Rheumatoid Factor Complement C4 Miscellaneous Test Crossmatch 03/19/17 03/19/17 03/19/17 00:34 06:11 11:15 WBC RBC Hgb Hct MCV MCH MCHC RDW Plt Count Lymph % (Auto) [place] % (Auto) Lymph # [place] # Baso # Seg Neutrophils % Seg Neuts % (Manual) Lymphocytes % (Manual) Monocytes % (Manual) Eosinophils % (Manual) Basophils % (Manual) Nucleated RBC % Seg Neutrophils # Seg Neutrophils # Man Lymphocytes # (Manual) Monocytes # (Manual) Eosinophils # (Manual) Basophils # (Manual) PT INR Fibrinogen dRVVT Confirm Interp Factor V Activity POC ABG pH POC ABG pCO2 POC ABG pO2 ABG pO2 ABG HCO3 ABG Base Excess ABG Hemoglobin Oxyhemoglobin Sodium Potassium Chloride Carbon Dioxide BUN Creatinine Glucose POC Glucose 139 H 146 H 129 H Lactic Acid Calcium Ionized Calcium Phosphorus Magnesium Direct Bilirubin AST ALT Alkaline Phosphatase Lactate Dehydrogenase Troponin T C-Reactive Protein Total Protein Albumin Prealbumin Triglycerides Cholesterol LDL Cholesterol Direct HDL Cholesterol 25-OH Vitamin D Total PTH Intact Urine pH Urine WBC (Auto) Urine Creatinine Urine Total Protein Fluid Total Protein Vancomycin Trough Rheumatoid Factor Complement C4 Miscellaneous Test Crossmatch 03/19/17 03/19/17 03/19/17 17:28 23:23 Unknown WBC RBC Hgb Hct MCV MCH MCHC RDW Plt Count Lymph % (Auto) [place] % (Auto) Lymph # [place] # Baso # Seg Neutrophils % Seg Neuts % (Manual) Lymphocytes % (Manual) Monocytes % (Manual) Eosinophils % (Manual) Basophils % (Manual) Nucleated RBC % Seg Neutrophils # Seg Neutrophils # Man Lymphocytes # (Manual) Monocytes # (Manual) Eosinophils # (Manual) Basophils # (Manual) PT INR Fibrinogen dRVVT Confirm Interp Factor V Activity POC ABG pH POC ABG pCO2 POC ABG pO2 ABG pO2 ABG HCO3 ABG Base Excess ABG Hemoglobin Oxyhemoglobin Sodium Potassium Chloride 96.8 L Carbon Dioxide BUN 34 H Creatinine 1.9 H Glucose 138 H POC Glucose 142 H 144 H Lactic Acid Calcium Ionized Calcium Phosphorus 5.20 H D Magnesium Direct Bilirubin AST ALT Alkaline Phosphatase Lactate Dehydrogenase Troponin T C-Reactive Protein Total Protein Albumin Prealbumin Triglycerides Cholesterol LDL Cholesterol Direct HDL Cholesterol 25-OH Vitamin D Total PTH Intact Urine pH Urine WBC (Auto) Urine Creatinine Urine Total Protein Fluid Total Protein Vancomycin Trough Rheumatoid Factor Complement C4 Miscellaneous Test Crossmatch 03/20/17 03/20/17 03/20/17 13:55 16:00 23:38 WBC 13.8 H RBC 2.21 L Hgb 6.6 L Hct 21.2 L MCV MCH MCHC RDW 19.7 H Plt Count Lymph % (Auto) [place] % (Auto) Lymph # [place] # 1.0 H Baso # Seg Neutrophils % 72.0 H Seg Neuts % (Manual) Lymphocytes % (Manual) Monocytes % (Manual) Eosinophils % (Manual) Basophils % (Manual) Nucleated RBC % Seg Neutrophils # 9.9 H Seg Neutrophils # Man Lymphocytes # (Manual) Monocytes # (Manual) Eosinophils # (Manual) Basophils # (Manual) PT INR Fibrinogen dRVVT Confirm Interp Factor V Activity POC ABG pH POC ABG pCO2 POC ABG pO2 ABG pO2 ABG HCO3 ABG Base Excess ABG Hemoglobin Oxyhemoglobin Sodium Potassium Chloride Carbon Dioxide BUN Creatinine Glucose POC Glucose 163 H Lactic Acid Calcium Ionized Calcium Phosphorus Magnesium Direct Bilirubin AST ALT Alkaline Phosphatase Lactate Dehydrogenase Troponin T C-Reactive Protein Total Protein Albumin Prealbumin Triglycerides Cholesterol LDL Cholesterol Direct HDL Cholesterol 25-OH Vitamin D Total PTH Intact Urine pH Urine WBC (Auto) Urine Creatinine Urine Total Protein Fluid Total Protein Vancomycin Trough Rheumatoid Factor Complement C4 Miscellaneous Test Crossmatch See Detail 03/20/17 03/21/17 03/21/17 Unknown 04:57 05:20 WBC 15.3 H RBC 2.68 L Hgb 8.8 L Hct 24.6 L MCV MCH 33 H MCHC 36 H RDW 19.4 H Plt Count Lymph % (Auto) [place] % (Auto) Lymph # [place] # 1.1 H Baso # Seg Neutrophils % 76.8 H Seg Neuts % (Manual) Lymphocytes % (Manual) Monocytes % (Manual) Eosinophils % (Manual) Basophils % (Manual) Nucleated RBC % Seg Neutrophils # 11.7 H Seg Neutrophils # Man Lymphocytes # (Manual) Monocytes # (Manual) Eosinophils # (Manual) Basophils # (Manual) PT INR Fibrinogen dRVVT Confirm Interp Factor V Activity POC ABG pH POC ABG pCO2 POC ABG pO2 ABG pO2 ABG HCO3 ABG Base Excess ABG Hemoglobin Oxyhemoglobin Sodium Potassium Chloride 97.7 L Carbon Dioxide BUN 43 H Creatinine 2.2 H Glucose POC Glucose 111 H Lactic Acid Calcium Ionized Calcium Phosphorus 5.30 H Magnesium Direct Bilirubin AST ALT 6 L Alkaline Phosphatase Lactate Dehydrogenase Troponin T C-Reactive Protein Total Protein Albumin 0.9 L Prealbumin Triglycerides Cholesterol LDL Cholesterol Direct HDL Cholesterol 25-OH Vitamin D Total PTH Intact Urine pH Urine WBC (Auto) Urine Creatinine Urine Total Protein Fluid Total Protein Vancomycin Trough Rheumatoid Factor Complement C4 Miscellaneous Test Crossmatch 03/21/17 03/22/17 03/22/17 17:18 06:25 12:30 WBC RBC Hgb Hct MCV MCH MCHC RDW Plt Count Lymph % (Auto) [place] % (Auto) Lymph # [place] # Baso # Seg Neutrophils % Seg Neuts % (Manual) Lymphocytes % (Manual) Monocytes % (Manual) Eosinophils % (Manual) Basophils % (Manual) Nucleated RBC % Seg Neutrophils # Seg Neutrophils # Man Lymphocytes # (Manual) Monocytes # (Manual) Eosinophils # (Manual) Basophils # (Manual) PT INR Fibrinogen dRVVT Confirm Interp Factor V Activity POC ABG pH POC ABG pCO2 POC ABG pO2 ABG pO2 ABG HCO3 ABG Base Excess ABG Hemoglobin Oxyhemoglobin Sodium 136 L Potassium Chloride 97.7 L Carbon Dioxide BUN 31 H Creatinine 1.8 H Glucose 102 H POC Glucose 118 H 164 H Lactic Acid Calcium Ionized Calcium Phosphorus Magnesium Direct Bilirubin AST ALT Alkaline Phosphatase Lactate Dehydrogenase Troponin T C-Reactive Protein Total Protein Albumin Prealbumin Triglycerides Cholesterol LDL Cholesterol Direct HDL Cholesterol 25-OH Vitamin D Total PTH Intact Urine pH Urine WBC (Auto) Urine Creatinine Urine Total Protein Fluid Total Protein Vancomycin Trough Rheumatoid Factor Complement C4 Miscellaneous Test Crossmatch 03/23/17 03/23/17 03/23/17 05:30 05:30 11:18 WBC RBC 2.50 L Hgb 8.0 L Hct 24.1 L MCV MCH MCHC RDW 22.2 H Plt Count Lymph % (Auto) [place] % (Auto) Lymph # [place] # Baso # Seg Neutrophils % 72.3 H Seg Neuts % (Manual) Lymphocytes % (Manual) Monocytes % (Manual) Eosinophils % (Manual) Basophils % (Manual) Nucleated RBC % Seg Neutrophils # Seg Neutrophils # Man Lymphocytes # (Manual) Monocytes # (Manual) Eosinophils # (Manual) Basophils # (Manual) PT INR Fibrinogen dRVVT Confirm Interp Factor V Activity POC ABG pH POC ABG pCO2 POC ABG pO2 ABG pO2 ABG HCO3 ABG Base Excess ABG Hemoglobin Oxyhemoglobin Sodium 136 L Potassium Chloride Carbon Dioxide BUN Creatinine 1.4 H Glucose POC Glucose 111 H Lactic Acid Calcium 8.2 L Ionized Calcium Phosphorus 2.10 L D Magnesium 1.60 L Direct Bilirubin AST ALT Alkaline Phosphatase Lactate Dehydrogenase Troponin T C-Reactive Protein Total Protein Albumin Prealbumin Triglycerides Cholesterol LDL Cholesterol Direct HDL Cholesterol 25-OH Vitamin D Total PTH Intact Urine pH Urine WBC (Auto) Urine Creatinine Urine Total Protein Fluid Total Protein Vancomycin Trough Rheumatoid Factor Complement C4 Miscellaneous Test Crossmatch 03/24/17 03/24/17 03/24/17 05:50 11:18 17:43 WBC RBC Hgb Hct MCV MCH MCHC RDW Plt Count Lymph % (Auto) [place] % (Auto) Lymph # [place] # Baso # Seg Neutrophils % Seg Neuts % (Manual) Lymphocytes % (Manual) Monocytes % (Manual) Eosinophils % (Manual) Basophils % (Manual) Nucleated RBC % Seg Neutrophils # Seg Neutrophils # Man Lymphocytes # (Manual) Monocytes # (Manual) Eosinophils # (Manual) Basophils # (Manual) PT INR Fibrinogen dRVVT Confirm Interp Factor V Activity POC ABG pH POC ABG pCO2 POC ABG pO2 ABG pO2 ABG HCO3 ABG Base Excess ABG Hemoglobin Oxyhemoglobin Sodium Potassium Chloride Carbon Dioxide BUN 26 H Creatinine 1.9 H Glucose POC Glucose 133 H 135 H Lactic Acid Calcium Ionized Calcium Phosphorus Magnesium Direct Bilirubin AST ALT Alkaline Phosphatase Lactate Dehydrogenase Troponin T C-Reactive Protein Total Protein Albumin Prealbumin Triglycerides Cholesterol LDL Cholesterol Direct HDL Cholesterol 25-OH Vitamin D Total PTH Intact Urine pH Urine WBC (Auto) Urine Creatinine Urine Total Protein Fluid Total Protein Vancomycin Trough Rheumatoid Factor Complement C4 Miscellaneous Test Crossmatch 03/25/17 03/25/17 03/25/17 05:15 05:19 17:38 WBC RBC Hgb Hct MCV MCH MCHC RDW Plt Count Lymph % (Auto) [place] % (Auto) Lymph # [place] # Baso # Seg Neutrophils % Seg Neuts % (Manual) Lymphocytes % (Manual) Monocytes % (Manual) Eosinophils % (Manual) Basophils % (Manual) Nucleated RBC % Seg Neutrophils # Seg Neutrophils # Man Lymphocytes # (Manual) Monocytes # (Manual) Eosinophils # (Manual) Basophils # (Manual) PT INR Fibrinogen dRVVT Confirm Interp Factor V Activity POC ABG pH POC ABG pCO2 POC ABG pO2 ABG pO2 ABG HCO3 ABG Base Excess ABG Hemoglobin Oxyhemoglobin Sodium Potassium Chloride Carbon Dioxide BUN Creatinine 1.3 H Glucose POC Glucose 110 H 109 H Lactic Acid Calcium Ionized Calcium Phosphorus Magnesium Direct Bilirubin AST ALT Alkaline Phosphatase Lactate Dehydrogenase Troponin T C-Reactive Protein Total Protein Albumin Prealbumin Triglycerides Cholesterol LDL Cholesterol Direct HDL Cholesterol 25-OH Vitamin D Total PTH Intact Urine pH Urine WBC (Auto) Urine Creatinine Urine Total Protein Fluid Total Protein Vancomycin Trough Rheumatoid Factor Complement C4 Miscellaneous Test Crossmatch 03/25/17 03/26/17 03/26/17 23:57 09:35 12:18 WBC RBC Hgb Hct MCV MCH MCHC RDW Plt Count Lymph % (Auto) [place] % (Auto) Lymph # [place] # Baso # Seg Neutrophils % Seg Neuts % (Manual) Lymphocytes % (Manual) Monocytes % (Manual) Eosinophils % (Manual) Basophils % (Manual) Nucleated RBC % Seg Neutrophils # Seg Neutrophils # Man Lymphocytes # (Manual) Monocytes # (Manual) Eosinophils # (Manual) Basophils # (Manual) PT INR Fibrinogen dRVVT Confirm Interp Factor V Activity POC ABG pH POC ABG pCO2 POC ABG pO2 ABG pO2 ABG HCO3 ABG Base Excess ABG Hemoglobin Oxyhemoglobin Sodium Potassium Chloride Carbon Dioxide BUN 25 H Creatinine 2.0 H D Glucose POC Glucose 107 H 106 H Lactic Acid Calcium Ionized Calcium Phosphorus 4.60 H D Magnesium 2.40 H Direct Bilirubin AST ALT Alkaline Phosphatase Lactate Dehydrogenase Troponin T C-Reactive Protein Total Protein Albumin Prealbumin Triglycerides Cholesterol LDL Cholesterol Direct HDL Cholesterol 25-OH Vitamin D Total PTH Intact Urine pH Urine WBC (Auto) Urine Creatinine Urine Total Protein Fluid Total Protein Vancomycin Trough Rheumatoid Factor Complement C4 Miscellaneous Test Crossmatch 03/27/17 03/27/17 03/27/17 05:30 05:30 18:01 WBC RBC 2.95 L Hgb 8.9 L Hct 28.7 L MCV MCH MCHC RDW 24.4 H Plt Count Lymph % (Auto) [place] % (Auto) 8.6 H Lymph # [place] # Baso # Seg Neutrophils % Seg Neuts % (Manual) Lymphocytes % (Manual) Monocytes % (Manual) Eosinophils % (Manual) Basophils % (Manual) Nucleated RBC % Seg Neutrophils # Seg Neutrophils # Man Lymphocytes # (Manual) Monocytes # (Manual) Eosinophils # (Manual) Basophils # (Manual) PT INR Fibrinogen dRVVT Confirm Interp Factor V Activity POC ABG pH POC ABG pCO2 POC ABG pO2 ABG pO2 ABG HCO3 ABG Base Excess ABG Hemoglobin Oxyhemoglobin Sodium Potassium Chloride 96.9 L Carbon Dioxide BUN 29 H Creatinine 2.5 H Glucose 102 H POC Glucose 162 H Lactic Acid Calcium Ionized Calcium Phosphorus 5.30 H Magnesium 2.60 H Direct Bilirubin AST ALT Alkaline Phosphatase Lactate Dehydrogenase Troponin T C-Reactive Protein Total Protein Albumin Prealbumin Triglycerides Cholesterol LDL Cholesterol Direct HDL Cholesterol 25-OH Vitamin D Total PTH Intact Urine pH Urine WBC (Auto) Urine Creatinine Urine Total Protein Fluid Total Protein Vancomycin Trough Rheumatoid Factor Complement C4 Miscellaneous Test Crossmatch 03/28/17 03/28/17 03/29/17 00:03 05:46 04:30 WBC RBC Hgb Hct MCV MCH MCHC RDW Plt Count Lymph % (Auto) [place] % (Auto) Lymph # [place] # Baso # Seg Neutrophils % Seg Neuts % (Manual) Lymphocytes % (Manual) Monocytes % (Manual) Eosinophils % (Manual) Basophils % (Manual) Nucleated RBC % Seg Neutrophils # Seg Neutrophils # Man Lymphocytes # (Manual) Monocytes # (Manual) Eosinophils # (Manual) Basophils # (Manual) PT INR Fibrinogen dRVVT Confirm Interp Factor V Activity POC ABG pH POC ABG pCO2 POC ABG pO2 ABG pO2 ABG HCO3 ABG Base Excess ABG Hemoglobin Oxyhemoglobin Sodium Potassium Chloride 97.5 L Carbon Dioxide BUN 27 H Creatinine 2.4 H Glucose POC Glucose 118 H 116 H Lactic Acid Calcium Ionized Calcium Phosphorus Magnesium Direct Bilirubin AST ALT Alkaline Phosphatase Lactate Dehydrogenase Troponin T C-Reactive Protein Total Protein Albumin Prealbumin Triglycerides Cholesterol LDL Cholesterol Direct HDL Cholesterol 25-OH Vitamin D Total PTH Intact Urine pH Urine WBC (Auto) Urine Creatinine Urine Total Protein Fluid Total Protein Vancomycin Trough Rheumatoid Factor Complement C4 Miscellaneous Test Crossmatch 03/31/17 04/01/17 04/01/17 06:00 00:12 07:15 WBC RBC Hgb Hct MCV MCH MCHC RDW Plt Count Lymph % (Auto) [place] % (Auto) Lymph # [place] # Baso # Seg Neutrophils % Seg Neuts % (Manual) Lymphocytes % (Manual) Monocytes % (Manual) Eosinophils % (Manual) Basophils % (Manual) Nucleated RBC % Seg Neutrophils # Seg Neutrophils # Man Lymphocytes # (Manual) Monocytes # (Manual) Eosinophils # (Manual) Basophils # (Manual) PT INR Fibrinogen dRVVT Confirm Interp Factor V Activity POC ABG pH POC ABG pCO2 POC ABG pO2 ABG pO2 ABG HCO3 ABG Base Excess ABG Hemoglobin Oxyhemoglobin Sodium Potassium Chloride 97.1 L Carbon Dioxide BUN 44 H 28 H Creatinine 3.2 H 2.4 H Glucose 101 H POC Glucose 113 H Lactic Acid Calcium Ionized Calcium Phosphorus 5.90 H Magnesium 2.50 H Direct Bilirubin AST ALT Alkaline Phosphatase Lactate Dehydrogenase Troponin T C-Reactive Protein Total Protein Albumin Prealbumin Triglycerides Cholesterol LDL Cholesterol Direct HDL Cholesterol 25-OH Vitamin D Total PTH Intact Urine pH Urine WBC (Auto) Urine Creatinine Urine Total Protein Fluid Total Protein Vancomycin Trough Rheumatoid Factor Complement C4 Miscellaneous Test Crossmatch 04/03/17 04/03/17 04/03/17 04:00 05:37 11:40 WBC RBC 2.40 L Hgb 7.7 L Hct 24.1 L MCV 101 H MCH MCHC RDW 23.1 H Plt Count Lymph % (Auto) [place] % (Auto) Lymph # [place] # Baso # Seg Neutrophils % Seg Neuts % (Manual) Lymphocytes % (Manual) Monocytes % (Manual) Eosinophils % (Manual) Basophils % (Manual) Nucleated RBC % Seg Neutrophils # Seg Neutrophils # Man Lymphocytes # (Manual) Monocytes # (Manual) Eosinophils # (Manual) Basophils # (Manual) PT INR Fibrinogen dRVVT Confirm Interp Factor V Activity POC ABG pH POC ABG pCO2 POC ABG pO2 ABG pO2 ABG HCO3 ABG Base Excess ABG Hemoglobin Oxyhemoglobin Sodium 146 H Potassium Chloride Carbon Dioxide 32 H BUN 44 H Creatinine 3.3 H Glucose POC Glucose 113 H Lactic Acid Calcium Ionized Calcium Phosphorus 4.90 H Magnesium Direct Bilirubin AST ALT Alkaline Phosphatase Lactate Dehydrogenase Troponin T C-Reactive Protein Total Protein Albumin Prealbumin Triglycerides Cholesterol LDL Cholesterol Direct HDL Cholesterol 25-OH Vitamin D Total PTH Intact Urine pH Urine WBC (Auto) Urine Creatinine Urine Total Protein Fluid Total Protein Vancomycin Trough Rheumatoid Factor Complement C4 Miscellaneous Test Crossmatch 04/03/17 04/03/17 04/04/17 11:48 17:55 05:24 WBC RBC Hgb Hct MCV MCH MCHC RDW Plt Count Lymph % (Auto) [place] % (Auto) Lymph # [place] # Baso # Seg Neutrophils % Seg Neuts % (Manual) Lymphocytes % (Manual) Monocytes % (Manual) Eosinophils % (Manual) Basophils % (Manual) Nucleated RBC % Seg Neutrophils # Seg Neutrophils # Man Lymphocytes # (Manual) Monocytes # (Manual) Eosinophils # (Manual) Basophils # (Manual) PT INR Fibrinogen dRVVT Confirm Interp Factor V Activity POC ABG pH POC ABG pCO2 POC ABG pO2 ABG pO2 ABG HCO3 ABG Base Excess ABG Hemoglobin Oxyhemoglobin Sodium Potassium Chloride Carbon Dioxide BUN Creatinine Glucose POC Glucose 110 H 130 H 107 H Lactic Acid Calcium Ionized Calcium Phosphorus Magnesium Direct Bilirubin AST ALT Alkaline Phosphatase Lactate Dehydrogenase Troponin T C-Reactive Protein Total Protein Albumin Prealbumin Triglycerides Cholesterol LDL Cholesterol Direct HDL Cholesterol 25-OH Vitamin D Total PTH Intact Urine pH Urine WBC (Auto) Urine Creatinine Urine Total Protein Fluid Total Protein Vancomycin Trough Rheumatoid Factor Complement C4 Miscellaneous Test Crossmatch 04/04/17 04/04/17 04/04/17 07:20 07:20 11:59 WBC RBC Hgb Hct MCV MCH MCHC RDW Plt Count Lymph % (Auto) [place] % (Auto) Lymph # [place] # Baso # Seg Neutrophils % Seg Neuts % (Manual) Lymphocytes % (Manual) Monocytes % (Manual) Eosinophils % (Manual) Basophils % (Manual) Nucleated RBC % Seg Neutrophils # Seg Neutrophils # Man Lymphocytes # (Manual) Monocytes # (Manual) Eosinophils # (Manual) Basophils # (Manual) PT INR Fibrinogen dRVVT Confirm Interp Factor V Activity POC ABG pH POC ABG pCO2 POC ABG pO2 ABG pO2 ABG HCO3 ABG Base Excess ABG Hemoglobin Oxyhemoglobin Sodium Potassium 3.3 L Chloride Carbon Dioxide BUN 24 H Creatinine 2.1 H Glucose POC Glucose 106 H Lactic Acid Calcium Ionized Calcium Phosphorus 1.50 L D Magnesium 1.60 L Direct Bilirubin AST ALT Alkaline Phosphatase Lactate Dehydrogenase Troponin T C-Reactive Protein Total Protein Albumin 1.8 L Prealbumin Triglycerides Cholesterol LDL Cholesterol Direct HDL Cholesterol 25-OH Vitamin D Total PTH Intact Urine pH Urine WBC (Auto) Urine Creatinine Urine Total Protein Fluid Total Protein Vancomycin Trough Rheumatoid Factor Complement C4 Miscellaneous Test Crossmatch 04/05/17 04/05/17 04/06/17 04:45 11:55 06:54 WBC RBC Hgb Hct MCV MCH MCHC RDW Plt Count Lymph % (Auto) [place] % (Auto) Lymph # [place] # Baso # Seg Neutrophils % Seg Neuts % (Manual) Lymphocytes % (Manual) Monocytes % (Manual) Eosinophils % (Manual) Basophils % (Manual) Nucleated RBC % Seg Neutrophils # Seg Neutrophils # Man Lymphocytes # (Manual) Monocytes # (Manual) Eosinophils # (Manual) Basophils # (Manual) PT INR Fibrinogen dRVVT Confirm Interp Factor V Activity POC ABG pH POC ABG pCO2 POC ABG pO2 ABG pO2 ABG HCO3 ABG Base Excess ABG Hemoglobin Oxyhemoglobin Sodium Potassium Chloride Carbon Dioxide BUN 31 H Creatinine 2.6 H 1.6 H Glucose POC Glucose 108 H Lactic Acid Calcium Ionized Calcium Phosphorus 4.80 H D Magnesium Direct Bilirubin AST ALT Alkaline Phosphatase Lactate Dehydrogenase Troponin T C-Reactive Protein Total Protein Albumin Prealbumin Triglycerides Cholesterol LDL Cholesterol Direct HDL Cholesterol 25-OH Vitamin D Total PTH Intact Urine pH Urine WBC (Auto) Urine Creatinine Urine Total Protein Fluid Total Protein Vancomycin Trough Rheumatoid Factor Complement C4 Miscellaneous Test Crossmatch 04/07/17 11:38 WBC RBC Hgb Hct MCV MCH MCHC RDW Plt Count Lymph % (Auto) [place] % (Auto) Lymph # [place] # Baso # Seg Neutrophils % Seg Neuts % (Manual) Lymphocytes % (Manual) Monocytes % (Manual) Eosinophils % (Manual) Basophils % (Manual) Nucleated RBC % Seg Neutrophils # Seg Neutrophils # Man Lymphocytes # (Manual) Monocytes # (Manual) Eosinophils # (Manual) Basophils # (Manual) PT INR Fibrinogen dRVVT Confirm Interp Factor V Activity POC ABG pH POC ABG pCO2 POC ABG pO2 ABG pO2 ABG HCO3 ABG Base Excess ABG Hemoglobin Oxyhemoglobin Sodium Potassium Chloride Carbon Dioxide BUN Creatinine Glucose POC Glucose 113 H Lactic Acid Calcium Ionized Calcium Phosphorus Magnesium Direct Bilirubin AST ALT Alkaline Phosphatase Lactate Dehydrogenase Troponin T C-Reactive Protein Total Protein Albumin Prealbumin Triglycerides Cholesterol LDL Cholesterol Direct HDL Cholesterol 25-OH Vitamin D Total PTH Intact Urine pH Urine WBC (Auto) Urine Creatinine Urine Total Protein Fluid Total Protein Vancomycin Trough Rheumatoid Factor Complement C4 Miscellaneous Test Crossmatch Allied health notes reviewed: nursing
[2017-04-07] MEDS: HEPARIN IV PRN (14:14)
[2017-04-07] MEDS ORDERED: LEVOPHED DRIP 4 MG/NS 250 ML 4 MG/250 ML BAG IV SCH (15:00)
[2017-04-07] MEDS: DURAGESIC TD SCH (15:47)
[2017-04-07] MEDS: PEPCID IV SCH (15:49)
[2017-04-07] MEDS: HEPARIN SUB-Q SCH ×2 (15:49→22:00)
[2017-04-07] MEDS ORDERED: TPN ADULT IV SCH (20:00)
[2017-04-07] MEDS ORDERED: INTRALIPID 20% 250 ML IV SCH (20:00)
[2017-04-08] MEDS: LOPRESSOR IV SCH ×4 (02:16→18:00)
[2017-04-08 06:23] LABS: Calcium 9.5 mg/dL (8.4-10.2)
[2017-04-08] MEDS: DUONEB *Not for PRN Use IH SCH ×2 (08:25→14:38)
[2017-04-08] MEDS: HEPARIN SUB-Q SCH ×2 (10:28→22:00)
[2017-04-08] MEDS: PEPCID IV SCH (10:28)
[2017-04-08] MEDS ORDERED: D10W IV SCH (11:00)
[2017-04-08] MEDS ORDERED: D5/0.45NS 1,000 ML IV SCH (11:00)
[2017-04-08] MEDS: HumuLIN R SUB-Q SCH ×3 (12:19→18:36)
[2017-04-08] MEDS ORDERED: TPN ADULT IV SCH (20:00)
--- NOTE | 2017-04-08 20:26 | Progress Note ---
Assessment and Plan Assessment and plan: --Status post cardiac arrest/anoxic encephalopathy/vegetative state --Acute respiratory failure/status post tracheostomy/ventilator dependent/ continue current management --Aspiration pneumonia/managed with multiple antibiotics per ID currently on daptomycin and Zosyn --Large CVA with mass effect/anoxic brain injury --Perforated bowel/drainage of large fluid collection, continue supportive care --Peritonitis/gastric perforation/status post laparotomy/on TPN --A. fib with rapid ventricular rate/continue amiodarone as needed --Sepsis/recurrent enterococcal infection/currently off antibiotics --End-stage renal disease; on hemodialysis, nephrology following --Multiple sacral decubiti stage III to stage IV, post debridement, continue wound care --Severe protein calorie malnutrition; continue TPN, supportive care --DO NOT RESUSCITATE status, recommend hospice[family not willing] Very poor prognosis, family aware, recommend hospice, family not willing Unable to place in LTAC/SNF, Multiple social issues Possible hospice placement on Monday04/10/2017 Plan of care discussed with the patient's nurse History Interval history: Patient seen and examined medical records reviewed Status post tracheostomy and vent dependent Clinically no change Unresponsive Vital signs reviewed Hospitalist Physical - Constitutional Vitals: Temp Pulse Resp BP Pulse Ox 97.6 F 106 H 19 97/65 97 04/08/17 16:00 04/08/17 18:00 04/08/17 18:00 04/08/17 18:00 04/08/17 18:00 General appearance: Present: no acute distress, cachectic, other (spontaneous opening of eyes, unresponsive) - EENT Eyes: Present: PERRL - Neck Neck: Present: other (s/p tracheostomy) - Respiratory Respiratory effort: normal Respiratory: bilateral: diminished, rhonchi - Cardiovascular Rhythm: irregularly irregular Heart Sounds: Present: S1 & S2 - Extremities Extremities: abnormal (chronic changes) Extremity abnormal: edema - Abdominal General gastrointestinal: soft, non-tender, non-distended, hypoactive bowel sounds - Integumentary Integumentary: Present: clear - Psychiatric Psychiatric: other (unresponsive) - Neurologic Neurologic: other (un. Responsive) Results - Labs CBC & Chem 7: 04/03/17 11:40 04/08/17 04:00 Labs: Laboratory Last Values WBC 4.7 K/mm3 (4.5-11.0) 04/03/17 11:40 RBC 2.40 M/mm3 (3.65-5.03) L 04/03/17 11:40 Hgb 7.7 gm/dl (10.1-14.3) L 04/03/17 11:40 Hct 24.1 % (30.3-42.9) L 04/03/17 11:40 MCV 101 fl (79-97) H 04/03/17 11:40 MCH 32 pg (28-32) 04/03/17 11:40 MCHC 32 % (30-34) 04/03/17 11:40 RDW 23.1 % (13.2-15.2) H 04/03/17 11:40 Plt Count 251 K/mm3 (140-440) 04/03/17 11:40 Lymph % (Auto) 25.1 % (13.4-35.0) 03/27/17 05:30 [place] % (Auto) 8.6 % (0.0-7.3) H 03/27/17 05:30 Eos % (Auto) 3.9 % (0.0-4.3) 03/27/17 05:30 Baso % (Auto) 1.5 % (0.0-1.8) 03/27/17 05:30 Lymph # 1.4 K/mm3 (1.2-5.4) 03/27/17 05:30 [place] # 0.5 K/mm3 (0.0-0.8) 03/27/17 05:30 Eos # 0.2 K/mm3 (0.0-0.4) 03/27/17 05:30 Baso # 0.1 K/mm3 (0.0-0.1) 03/27/17 05:30 Add Manual Diff Complete 03/14/17 14:30 Total Counted 100 03/14/17 14:30 Seg Neutrophils % 60.9 % (40.0-70.0) 03/27/17 05:30 Seg Neuts % (Manual) 70.0 % (40.0-70.0) 03/14/17 14:30 Band Neutrophils % 0 % 03/14/17 14:30 Lymphocytes % (Manual) 13.0 % (13.4-35.0) L 03/14/17 14:30 Reactive Lymphs % (Man) 1.0 % 03/14/17 14:30 Monocytes % (Manual) 15.0 % (0.0-7.3) H 03/14/17 14:30 Eosinophils % (Manual) 1.0 % (0.0-4.3) 03/14/17 14:30 Basophils % (Manual) 0 % (0.0-1.8) 03/14/17 14:30 Metamyelocytes % 0 % 03/14/17 14:30 Myelocytes % 0 % 03/14/17 14:30 Promyelocytes % 0 % 03/14/17 14:30 Blast Cells % 0 % 03/14/17 14:30 Nucleated RBC % Not Reportable 03/14/17 14:30 Seg Neutrophils # 3.3 K/mm3 (1.8-7.7) 03/27/17 05:30 Seg Neutrophils # Man 12.3 K/mm3 (1.8-7.7) H 03/14/17 14:30 Band Neutrophils # 0.0 K/mm3 03/14/17 14:30 Lymphocytes # (Manual) 2.3 K/mm3 (1.2-5.4) 03/14/17 14:30 Abs React Lymphs (Man) 0.2 K/mm3 03/14/17 14:30 Monocytes # (Manual) 2.6 K/mm3 (0.0-0.8) H 03/14/17 14:30 Eosinophils # (Manual) 0.2 K/mm3 (0.0-0.4) 03/14/17 14:30 Basophils # (Manual) 0.0 K/mm3 (0.0-0.1) 03/14/17 14:30 Metamyelocytes # 0.0 K/mm3 03/14/17 14:30 Myelocytes # 0.0 K/mm3 03/14/17 14:30 Promyelocytes # 0.0 K/mm3 03/14/17 14:30 Blast Cells # 0.0 K/mm3 03/14/17 14:30 Pathologist Review 09/13/16 04:00 WBC Morphology Not Reportable 03/14/17 14:30 Hypersegmented Neuts Not Reportable 03/14/17 14:30 Hyposegmented Neuts Not Reportable 03/14/17 14:30 Hypogranular Neuts Not Reportable 03/14/17 14:30 Smudge Cells Not Reportable 03/14/17 14:30 Toxic Granulation Not Reportable 03/14/17 14:30 Toxic Vacuolation Not Reportable 03/14/17 14:30 Dohle Bodies Not Reportable 03/14/17 14:30 Pelger-Huet Anomaly Not Reportable 03/14/17 14:30 Jasmina Rods Not Reportable 03/14/17 14:30 Platelet Estimate Consistent w auto 03/14/17 14:30 Clumped Platelets Not Reportable 03/14/17 14:30 Plt Clumps, EDTA Not Reportable 03/14/17 14:30 Large Platelets Not Reportable 03/14/17 14:30 Giant Platelets Not Reportable 03/14/17 14:30 Platelet Satelliting Not Reportable 03/14/17 14:30 Plt Morphology Comment Not Reportable 03/14/17 14:30 RBC Morphology Not Reportable 03/14/17 14:30 Dimorphic RBCs Not Reportable 03/14/17 14:30 Polychromasia Not Reportable 03/14/17 14:30 Hypochromasia 2+ 03/14/17 14:30 Poikilocytosis Not Reportable 03/14/17 14:30 Anisocytosis 1+ 03/14/17 14:30 Microcytosis Not Reportable 03/14/17 14:30 Macrocytosis Not Reportable 03/14/17 14:30 Spherocytes Not Reportable 03/14/17 14:30 Pappenheimer Bodies Not Reportable 03/14/17 14:30 Sickle Cells Not Reportable 03/14/17 14:30 Target Cells Not Reportable 03/14/17 14:30 Tear Drop Cells Not Reportable 03/14/17 14:30 Ovalocytes Not Reportable 03/14/17 14:30 Stomatocytes 2+ 03/14/17 14:30 Helmet Cells Not Reportable 03/14/17 14:30 [place] Bodies Not Reportable 03/14/17 14:30 [place] Rings Not Reportable 03/14/17 14:30 [place] Cells Not Reportable 03/14/17 14:30 Bite Cells Not Reportable 03/14/17 14:30 Crenated Cell Not Reportable 03/14/17 14:30 Elliptocytes Not Reportable 03/14/17 14:30 Acanthocytes (Spur) Not Reportable 03/14/17 14:30 Rouleaux Not Reportable 03/14/17 14:30 Hemoglobin C Crystals Not Reportable 03/14/17 14:30 Schistocytes Not Reportable 03/14/17 14:30 Malaria parasites Not Reportable 03/14/17 14:30 ESR > 140.0 mm/Hr (0-20) 09/08/16 11:48 Jun Bodies Not Reportable 03/14/17 14:30 Hem Pathologist Commnt No 03/14/17 14:30 PT 15.4 Sec. (12.2-14.9) H 01/13/17 15:50 INR 1.16 (0.87-1.13) H 01/13/17 15:50 APTT 33.0 Sec. (24.2-36.6) 10/09/16 03:45 Thrombin Time 16.8 Sec. (15.1-19.6) 09/03/16 00:10 Fibrinogen 750 mg/dl (211-480) H 09/08/16 11:48 Lupus Anticoagulant see below 09/12/16 09:59 LA PTT Baseline See scanned report 09/12/16 09:59 dRVVT Confirm Interp Positive (Negative) H 09/12/16 09:59 dRVVT Screen 50:50 See scanned report 09/12/16 09:59 dRVVT Mix Interpret See scanned report 09/12/16 09:59 Protein C Antigen 122 % (70-140) 09/08/16 15:35 Free Protein S 97 % normal (50-147) 09/08/16 15:35 Total Protein S 109 % (70-140) 09/08/16 15:35 Antithrombin III Ag 100 % (80-120) 09/08/16 15:35 Heparin Anti-Xa, Unfract Negative (Negative) 09/29/16 13:35 Factor V Activity 182 % (65-150) H 09/08/16 15:35 POC ABG pH 7.518 (7.35-7.45) H 03/03/17 20: ABG pH 7.450 pH Units (7.350-7.450) 12/05/16 Unknown POC ABG pCO2 28.8 (35-45) L 03/03/17 20: ABG pCO2 29.6 mm Hg 12/05/16 Unknown POC ABG pO2 61 (80-105) L 03/03/17 20: ABG pO2 75.2 mm Hg (80.0-90.0) L 12/05/16 Unknown POC ABG HCO3 23.4 03/03/17 20: ABG HCO3 20.1 mmol/L (20.0-26.0) 12/05/16 Unknown POC ABG Total CO2 24 03/03/17 20: POC ABG O2 Sat 94 03/03/17 20: ABG O2 Saturation 96.8 % (95.0-99.0) 12/05/16 Unknown ABG O2 Content 9.9 (0.0-44) 12/05/16 Unknown POC ABG Base Excess 0 03/03/17 20: ABG Base Excess -3.4 mmol/L (-2.0-3.0) L 12/05/16 Unknown ABG Hemoglobin 7.4 gm/dl (12.0-16.0) L 12/05/16 Unknown ABG Carboxyhemoglobin 1.8 % (0.0-5.0) 12/05/16 Unknown ABG Methemoglobin 0.6 % (0.0-1.5) 12/05/16 Unknown Oxyhemoglobin 94.5 % (95.0-99.0) L 12/05/16 Unknown FiO2 40 % 03/03/17 20: Sodium 139 mmol/L (137-145) 04/08/17 04:00 Potassium 4.7 mmol/L (3.6-5.0) 04/08/17 04:00 Chloride 102.0 mmol/L (98-107) 04/08/17 04:00 Carbon Dioxide 27 mmol/L (22-30) 04/08/17 04:00 Anion Gap 15 mmol/L 04/08/17 04:00 BUN 16 mg/dL (7-17) 04/08/17 04:00 Creatinine 1.7 mg/dL (0.7-1.2) H 04/08/17 04:00 Estimated GFR 39 ml/min 04/08/17 04:00 BUN/Creatinine Ratio 9 % 04/08/17 04:00 Glucose 87 mg/dL (65-100) 04/08/17 04:00 POC Glucose 85 (70-105) 04/08/17 17:14 Osmolality 351 Mosm/kg 09/16/16 11:47 Lactic Acid 2.30 mmol/L (0.7-2.0) H* 01/09/17 08:22 Calcium 9.5 mg/dL (8.4-10.2) 04/08/17 04:00 Ionized Calcium 6.0 mg/dL (4.8-5.6) H 02/15/17 19:08 Phosphorus 2.60 mg/dL (2.5-4.5) 04/08/17 04:00 Magnesium 1.60 mg/dL (1.7-2.3) L 04/08/17 04:00 Total Bilirubin 0.50 mg/dL (0.1-1.2) 04/04/17 07:20 Direct Bilirubin 0.2 mg/dL (0-0.2) 01/28/17 04:00 Indirect Bilirubin 0.3 mg/dL 01/28/17 04:00 AST 15 units/L (5-40) 04/04/17 07:20 ALT 7 units/L (7-56) 04/04/17 07:20 Alkaline Phosphatase 122 units/L (35-129) 04/04/17 07:20 Ammonia 27.0 umol/L (25-60) 09/07/16 08:37 Lactate Dehydrogenase 170 units/L (91-180) 01/13/17 15:50 Total Creatine Kinase 121 units/L (30-135) 09/29/16 20:12 CK-MB (CK-2) < 1.0 ng/mL (0.0-4.0) 09/29/16 20:12 CK-MB (CK-2) Rel Index 0.8 (0-4) 09/29/16 20:12 Troponin T 0.204 ng/mL (0.00-0.029) H* 09/29/16 20:12 C-Reactive Protein 19.50 mg/dL (0.00-1.30) H 03/14/17 12:51 Total Protein 7.3 g/dL (6.3-8.2) 04/04/17 07:20 Albumin 1.8 g/dL (3.9-5) L 04/04/17 07:20 Albumin/Globulin Ratio 0.3 % 02/13/18 07:20 Prealbumin 0.110 g/L (0.200-0.400) L 12/29/16 05:15 Triglycerides 94 mg/dL (2-149) 03/20/17 Unknown Cholesterol 31 mg/dL (50-199) L 09/29/16 20:12 LDL Cholesterol Direct 4 mg/dL (50-130) L 09/29/16 20:12 HDL Cholesterol 3 mg/dL (40-59) L 09/29/16 20:12 Cholesterol/HDL Ratio 10.33 % 09/29/16 20:12 Angiotensin Convert Enz See scanned report 09/08/16 11:48 Renin 0.99 ng/mL/h (0.25-5.82) 10/07/16 10:56 Aldosterone <1 ng/dL () 10/07/16 10:56 Aldosterone/Renin Dir see below 10/07/16 10:56 Serotonin Release Assay See scanned report 09/29/16 13:35 25-OH Vitamin D Total 13 ng/mL (30-100) L 02/15/17 19:08 25-Hydroxy Vitamin D2 . 02/15/17 19:08 25-Hydroxy Vitamin D3 . 02/15/17 19:08 TSH 1.010 mlU/mL (0.270-4.200) 09/07/16 08:37 HCG, Qual Negative (Negative) 09/03/16 00:10 PTH Intact 10.88 pg/mL (15-65) L 02/15/17 19:08 Total Cortisol 18.2 mcg/dL () 02/02/17 20:09 Urine Color Yellow (Yellow) 11/05/16 13:09 Urine Turbidity Clear (Clear) 11/05/16 13:09 Urine pH 9.0 (5.0-7.0) H 11/05/16 13:09 Ur Specific [place] 1.011 (1.003-1.030) 11/05/16 13:09 Urine Protein 100 mg/dl mg/dL (Negative) 11/05/16 13:09 Urine Glucose (UA) Neg mg/dL (Negative) 11/05/16 13:09 Urine Ketones Neg mg/dL (Negative) 11/05/16 13:09 Urine Blood Neg (Negative) 11/05/16 13:09 Urine Nitrite Neg (Negative) 11/05/16 13:09 Urine Bilirubin Neg (Negative) 11/05/16 13:09 Urine Urobilinogen < 2.0 mg/dL (<2.0) 11/05/16 13:09 Ur Leukocyte Esterase Neg (Negative) 11/05/16 13:09 Urine WBC (Auto) 4.0 /HPF (0.0-6.0) 11/05/16 13:09 Urine RBC (Auto) 1.0 /HPF (0.0-6.0) 11/05/16 13:09 U Epithel Cells (Auto) 1.0 /HPF (0-13.0) 10/07/16 18:30 Urine Bacteria (Auto) 4+ /HPF (Negative) 11/05/16 13:09 Urine WBC Clumps 2+ /HPF 09/07/16 02:47 Hyaline Casts 4 /LPF 09/07/16 02:47 Urine Mucus Few /HPF 10/07/16 18:30 Urine Yeast (Budding) 3+ /HPF 10/07/16 18:30 Urine Eosinophils None seen (None Seen) 09/07/16 16:00 Urine Total Volume 950 11/12/16 10:18 Urine Creatinine 19.7 mg/dL (0.1-20.0) 11/12/16 10:18 Height (in) 65.0 inches 11/12/16 10:18 Weight (lb) 181.0 lbs 11/12/16 10:18 Creatinine Clearance 5 11/12/16 10:18 Urine Sodium 36 mEq/L 09/16/16 19:19 Urine Total Protein 16 mg/dL (5-11.8) H 09/16/16 19:19 Fluid Type Pleural 01/13/17 12:10 Fluid Color Yellow 01/13/17 12:10 Fluid Appearance Hazy 01/13/17 12:10 Fluid WBC 182 /mm3 01/13/17 12:10 Fluid RBC 41 /mm3 01/13/17 12:10 Fluid Seg Neutrophils 85.0 % 01/13/17 12:10 Fluid Lymphocytes 8.0 % 01/13/17 12:10 Fluid Reactive Lymphs 0 % 01/13/17 12:10 Fluid Monocytes 6.0 % 01/13/17 12:10 Fluid Eosinophils 1.0 % 01/13/17 12:10 Fluid Basophils 0 % 01/13/17 12:10 Fluid Total Protein 3.0 (15.0-45.0) L 01/13/17 12:10 Fluid LDH 1322 01/13/17 12:10 Fluid Comment Diff performed 01/13/17 12:10 Vancomycin Trough 2.3 ug/mL (5.0-20.0) L 09/21/16 13:00 Random Vancomycin 26.0 ug/mL (0-40.0) 03/13/17 05:39 Urine Opiates Screen Presumptive negative 09/03/16 15:11 Urine Methadone Screen Presumptive positive 09/03/16 15:11 Ur Barbiturates Screen Presumptive positive 09/03/16 15:11 Ur Phencyclidine Scrn Presumptive negative 09/03/16 15:11 Ur Amphetamines Screen Presumptive negative 09/03/16 15:11 U Benzodiazepines Scrn Presumptive negative 09/03/16 15:11 Urine Cocaine Screen Presumptive negative 09/03/16 15:11 U Marijuana (THC) Screen Presumptive positive 09/03/16 15:11 Drugs of Abuse Note Disclamer 09/03/16 15:11 Rheumatoid Factor 24 IU/ml (0-13) H 09/08/16 11:48 SAHIL Screen Negative (Negative) 09/07/16 09:20 Proteinase 3 (PR3) Ab <1.0 AI (<1.0) 09/07/16 09:20 Myeloperoxidase Ab <1.0 AI (<1.0) 09/07/16 09:20 Sjogren's Antibody <1.0 AI (<1.0) 09/08/16 15:35 Scl-70 Scleroderma Ab <1.0 AI (<1.0) 09/08/16 15:35 Centromere B Antibody <1.0 AI (<1.0) 09/08/16 12:02 Heparin-induced Plt Ab Negative (Negative) 09/29/16 13:35 UF Heparin High Dose 11 % Release 09/29/16 13:35 SUDHIR UFH Low Dose 0.1 6 % Release 09/29/16 13:35 SUDHIR UFH Low Dose 0.5 8 % Release 09/29/16 13:35 Cardiolipid IgG Ab <14 GPL (<=14) 09/12/16 09:59 Cardiolipid IgA Ab <11 APL (<=11) 09/12/16 09:59 Cardiolipid IgM Ab <12 MPL (<=12) 09/12/16 09:59 Complement C3 148 mg/dL (90-180) 09/07/16 09:20 Complement C4 58 mg/dL (16-47) H 09/07/16 09:20 RPR Nonreactive (Nonreactive) 09/08/16 11:48 Hepatitis A IgM Ab Non-reactive (NonReactive) 09/24/16 14:40 Hep Bs Antigen Non-reactive (Negative) 09/24/16 14:40 Hep B Core IgM Ab Non-reactive (NonReactive) 09/24/16 14:40 Hepatitis C Antibody Non-reactive (NonReactive) 09/24/16 14:40 HIV 1&2 Antibody Rapid Non react (Non React) 09/08/16 11:48 HIV P24 Antigen Non react (Non React) 09/08/16 11:48 Miscellaneous Test Flexitest 1 H 01/09/17 18:45 Blood Type A POSITIVE 03/20/17 16:00 Antibody Screen Negative 03/20/17 16:00 DELORIS Antibody Screen Negative 11/24/16 11:20 Crossmatch See Detail 03/20/17 16:00
[2017-04-09] MEDS: DUONEB *Not for PRN Use IH SCH ×6 (02:29→19:45)
[2017-04-09] MEDS: LOPRESSOR IV SCH ×3 (05:20→12:22)
[2017-04-09 06:37] LABS: Calcium 10.8 mg/dL (8.4-10.2)
[2017-04-09] MEDS: HumuLIN R SUB-Q SCH ×4 (07:02→12:25)
[2017-04-09] MEDS: PEPCID IV SCH (09:22)
[2017-04-09] MEDS: HEPARIN SUB-Q SCH ×2 (09:22→21:29)
--- NOTE | 2017-04-09 13:28 | Progress Note ---
Assessment and Plan Patient is 46-year-old woman with a history of hypertension, diabetes mellitus, asthma, hyperlipidemia, chronic kidney disease and anxiety, who was brought in by family because she couldn't get her words out, her face was also twisted, she was admitted for acute CVA and accelerated hypertension, she had a hx of poor adherence with her medications, and uncontrolled hypertension. Patient's SBP on admission was noted be greater than 260. TPA was started but this it was discontinued after 5 minutes because her blood pressure became uncontrolled. The TPA was not initiated again because the patient was outside the TPA window. Patient has had a prolonged hospital stay complicated with recurrent severe sepsis. Patient with most recent event also status post cardiac arrest on 11/21/16 , with CPR and ROSC. Acute on chronic Hypoxemic Respiratory Failure Sepsis -recurrent s/p tracheostomy Hypertension Atrial Fibrillation with RVR Acute encephalopathy s/p CVA Oropharyngeal dysphagia Enterococcal bacteremia Sacral Decubitus Ulcer- unstageable s/p debridement Anemia Obesity JUANITA now on hemodialysis Enteric Fistula - VAP bundle addressed - continue NGT to LIS - continue wound care/wound vac per WCT - Vasopressor if MAP falls < 65mmHg - keep on with daily PSV trials and / or T-piece as tolerated - continue TPN administration (continue TPN; NPO except for meds) - continue airway clearance and secretion management - continue to wean FiO2 for sats > 94% - continue to monitor hemodynamics closely - continue HD/UF per nephrology - continue to follow electrolytes and correct as necessary - continue GI & VTE prophylaxis Transfuse 1 unit PRBC as needed to keep HgH>7g/dL .....she remains critically ill on life sustaining interventions including MVS and at risk for further deterioration including ...nursing home prognosis remains poor ...DNR in the event of cardiac arrest - Patient Problems (1) Acute respiratory failure with hypoxia Current Visit: Yes Status: Acute (2) Acute blood loss anemia Current Visit: Yes Status: Resolved (3) Acute CVA (cerebrovascular accident) Current Visit: Yes Status: Acute (4) Chronic renal insufficiency Current Visit: Yes Status: Acute (5) Uncontrolled hypertension Current Visit: Yes Status: Acute (6) Leukocytosis (leucocytosis) Current Visit: Yes Status: Acute Qualifiers: Leukocytosis type: leukemoid reaction Qualified Code(s): D72.823 - Leukemoid reaction (7) Dislodged gastrostomy tube Current Visit: Yes Status: Acute (8) Fungemia Current Visit: Yes Status: Resolved (9) Cardiopulmonary arrest with successful resuscitation Current Visit: Yes Status: Acute Subjective Date of service: 04/09/17 Principal diagnosis: Acute resp failure on MVS; S/P Acute CVA; Acute Encephalopathy; JUANITA Interval history: Patient is seen today for: Acute resp failure on MVS; S/P Acute CVA; Acute Encephalopathy; JUANITA Seen and examined at bedside; 24hour events reviewed; nursing and respiratory care staff consulted; no adverse overnight events reported to me; she remains critically ill. No acute overight events. Discussed with RT Discussed during interdisciplinary ICU team rounds..family is having discussions about hospice care Objective - Exam Narrative Exam: Gen. appearance: Patient lying in bed, no apparent distress, 4. restraints HEENT: Normocephalic, atraumatic, pupils equally round and reactive to light, extraocular movement intact, and no sclericterus,. No JVD or thyromegaly or nodule,neck supple, no carotid bruit ,mucous membranes moist, unable to examine oral cavity Heart: S1, S2, regular rate and rhythm Lungs: Clear to auscultation bilaterally, breathing comfortable Abdomen: Positive bowel sounds, nontender, nondistended, no organomegaly Extremity: No edema, cyanosis, clubbing Skin: No rash, nodules, warm, dry Neuro: Difficult to assess, facial droop, moves all 4 extremities Vital Signs - 12hr 04/09/17 04/09/17 04/09/17 01:30 02:00 02:30 Temperature Pulse Rate 116 H 112 H 109 H Pulse Rate [ Apical] Pulse Rate [ From Monitor] Pulse Rate [ Throughout] Respiratory 16 17 16 Rate Respiratory Rate [ Generalized] Respiratory Rate [ Throughout] Blood Pressure 105/78 123/81 101/65 O2 Sat by Pulse 93 94 96 Oximetry 04/09/17 04/09/17 04/09/17 03:00 03:30 04:00 Temperature 99.4 F Pulse Rate 111 H 114 H 109 H Pulse Rate [ 99 H Apical] Pulse Rate [ From Monitor] Pulse Rate [ Throughout] Respiratory 11 L 15 15 Rate Respiratory Rate [ Generalized] Respiratory Rate [ Throughout] Blood Pressure 113/72 129/87 109/68 O2 Sat by Pulse 96 94 95 Oximetry 04/09/17 04/09/17 04/09/17 04:20 04:30 05:00 Temperature Pulse Rate 112 H 119 H 122 H Pulse Rate [ Apical] Pulse Rate [ From Monitor] Pulse Rate [ Throughout] Respiratory 9 L 16 Rate Respiratory Rate [ Generalized] Respiratory Rate [ Throughout] Blood Pressure 139/99 124/95 139/99 O2 Sat by Pulse 96 90 94 Oximetry 04/09/17 04/09/17 04/09/17 05:20 05:30 06:00 Temperature Pulse Rate 109 H 100 H 102 H Pulse Rate [ Apical] Pulse Rate [ From Monitor] Pulse Rate [ Throughout] Respiratory 15 18 Rate Respiratory Rate [ Generalized] Respiratory Rate [ Throughout] Blood Pressure 139/99 120/80 116/72 O2 Sat by Pulse 97 93 Oximetry 04/09/17 04/09/17 04/09/17 06:30 07:00 07:30 Temperature Pulse Rate 103 H 105 H 103 H Pulse Rate [ Apical] Pulse Rate [ From Monitor] Pulse Rate [ Throughout] Respiratory 17 15 16 Rate Respiratory Rate [ Generalized] Respiratory Rate [ Throughout] Blood Pressure 116/70 113/70 112/68 O2 Sat by Pulse 92 93 95 Oximetry 04/09/17 04/09/17 04/09/17 07:58 08:00 08:01 Temperature 97.1 F L Pulse Rate 107 H 108 H 108 H Pulse Rate [ Apical] Pulse Rate [ 112 H From Monitor] Pulse Rate [ Throughout] Respiratory 25 H 29 H Rate Respiratory Rate [ Generalized] Respiratory Rate [ Throughout] Blood Pressure 112/68 118/79 118/79 O2 Sat by Pulse 93 95 93 Oximetry 04/09/17 04/09/17 04/09/17 08:04 08:11 08:30 Temperature Pulse Rate 109 H Pulse Rate [ Apical] Pulse Rate [ From Monitor] Pulse Rate [ 106 H 106 H Throughout] Respiratory 32 H Rate Respiratory Rate [ Generalized] Respiratory 30 H 28 H Rate [ Throughout] Blood Pressure 123/81 O2 Sat by Pulse 94 Oximetry 04/09/17 04/09/17 04/09/17 09:00 09:30 10:00 Temperature Pulse Rate 111 H 117 H 114 H Pulse Rate [ Apical] Pulse Rate [ From Monitor] Pulse Rate [ Throughout] Respiratory 32 H 36 H 33 H Rate Respiratory 28 H Rate [ Generalized] Respiratory Rate [ Throughout] Blood Pressure 127/80 140/89 116/80 O2 Sat by Pulse 94 91 94 Oximetry 02/04/09/17 04/09/17 10:30 10:46 11:00 Temperature Pulse Rate 111 H 110 H 111 H Pulse Rate [ Apical] Pulse Rate [ From Monitor] Pulse Rate [ Throughout] Respiratory 33 H 23 Rate Respiratory Rate [ Generalized] Respiratory Rate [ Throughout] Blood Pressure 118/79 118/79 110/77 O2 Sat by Pulse 96 100 99 Oximetry 04/09/17 04/09/17 04/09/17 11:30 12:00 12:22 Temperature 97.6 F Pulse Rate 112 H 114 H 110 H Pulse Rate [ Apical] Pulse Rate [ 114 H From Monitor] Pulse Rate [ Throughout] Respiratory 22 15 Rate Respiratory Rate [ Generalized] Respiratory Rate [ Throughout] Blood Pressure 126/83 117/85 117/85 O2 Sat by Pulse 100 99 Oximetry 04/09/17 12:30 Temperature Pulse Rate 102 H Pulse Rate [ Apical] Pulse Rate [ From Monitor] Pulse Rate [ Throughout] Respiratory 15 Rate Respiratory Rate [ Generalized] Respiratory Rate [ Throughout] Blood Pressure 116/75 O2 Sat by Pulse 97 Oximetry Constitutional: appears uncomfortable, other (not tracking) Eyes: non-icteric, other (tracheostomy tube in midline of neck) ENT: oropharynx moist, oropharyngeal exudate pre, other (midline tracheostomy tube) Neck: supple, no lymphadenopathy, no JVD, other (no thyromegaly) Effort: mildly labored Ascultation: Bilateral: clear, diminished breath sounds (bases R>L), rales, rhonchi (and referred upper airway sounds) Percussion: Right: dull (base), Bilateral: not dull Cardiovascular: regular rate and rhythm, other (no rubs / murmurs) Gastrointestinal: hypoactive bowel sounds, soft, non-tender, non-distended, other (RLQ & LUQ stomas with colostomy bags) Integumentary: decubitus ulcer (sacral; stage 4 s/p surgical debridement), other (no rash; no cellulitis; poor turgor) Extremities: no cyanosis, pulses normal, no ischemia or petechiae, edema (1+ bilaterally) Neurologic: pupils equal and round, unable to assess, other (encephalopathic) Psychiatric: other (unable to assess) CBC and BMP: 04/03/17 11:40 04/09/17 06:09 ABG, PT/INR, D-dimer: ABG POC ABG pH 7.518 (7.35-7.45) H 03/03/17 20: ABG pH 7.450 pH Units (7.350-7.450) 12/05/16 Unknown POC ABG pCO2 28.8 (35-45) L 03/03/17 20: ABG pCO2 29.6 mm Hg 12/05/16 Unknown POC ABG pO2 61 (80-105) L 03/03/17 20: ABG pO2 75.2 mm Hg (80.0-90.0) L 12/05/16 Unknown POC ABG HCO3 23.4 03/03/17 20: POC ABG Total CO2 24 03/03/17 20: POC ABG O2 Sat 94 03/03/17 20: ABG O2 Saturation 96.8 % (95.0-99.0) 12/05/16 Unknown PT/INR, D-dimer PT 15.4 Sec. (12.2-14.9) H 01/13/17 15:50 INR 1.16 (0.87-1.13) H 01/13/17 15:50 Abnormal lab findings: Abnormal Labs 09/03/16 09/03/16 09/03/16 00:03 00:10 00:10 WBC 13.9 H RBC 5.95 H Hgb Hct 44.0 H MCV 74 L MCH 22 L MCHC RDW 17.5 H Plt Count Lymph % (Auto) Bowman % (Auto) Lymph # [place] # Baso # Seg Neutrophils % Seg Neuts % (Manual) Lymphocytes % (Manual) 54.0 H Monocytes % (Manual) Eosinophils % (Manual) Basophils % (Manual) Nucleated RBC % Seg Neutrophils # Seg Neutrophils # Man Lymphocytes # (Manual) 7.5 H Monocytes # (Manual) Eosinophils # (Manual) Basophils # (Manual) PT INR Fibrinogen dRVVT Confirm Interp Factor V Activity POC ABG pH POC ABG pCO2 POC ABG pO2 ABG pO2 ABG HCO3 ABG Base Excess ABG Hemoglobin Oxyhemoglobin Sodium Potassium 2.8 L* Chloride Carbon Dioxide 21 L BUN Creatinine 1.7 H Glucose 159 H POC Glucose 177 H Lactic Acid Calcium Ionized Calcium Phosphorus Magnesium Direct Bilirubin AST ALT Alkaline Phosphatase Lactate Dehydrogenase Troponin T C-Reactive Protein Total Protein Albumin Prealbumin Triglycerides Cholesterol LDL Cholesterol Direct HDL Cholesterol 25-OH Vitamin D Total PTH Intact Urine pH Urine WBC (Auto) Urine Creatinine Urine Total Protein Fluid Total Protein Vancomycin Trough Rheumatoid Factor Complement C4 Miscellaneous Test Crossmatch 09/03/16 09/03/16 09/03/16 12:12 15:07 16:20 WBC RBC Hgb Hct MCV MCH MCHC RDW Plt Count Lymph % (Auto) [place] % (Auto) Lymph # [place] # Baso # Seg Neutrophils % Seg Neuts % (Manual) Lymphocytes % (Manual) Monocytes % (Manual) Eosinophils % (Manual) Basophils % (Manual) Nucleated RBC % Seg Neutrophils # Seg Neutrophils # Man Lymphocytes # (Manual) Monocytes # (Manual) Eosinophils # (Manual) Basophils # (Manual) PT INR Fibrinogen dRVVT Confirm Interp Factor V Activity POC ABG pH 7.452 H POC ABG pCO2 POC ABG pO2 ABG pO2 ABG HCO3 ABG Base Excess ABG Hemoglobin Oxyhemoglobin Sodium Potassium Chloride Carbon Dioxide BUN Creatinine Glucose POC Glucose 178 H Lactic Acid Calcium Ionized Calcium Phosphorus 2.20 L Magnesium 1.60 L Direct Bilirubin AST ALT Alkaline Phosphatase Lactate Dehydrogenase Troponin T C-Reactive Protein Total Protein Albumin Prealbumin Triglycerides Cholesterol LDL Cholesterol Direct HDL Cholesterol 25-OH Vitamin D Total PTH Intact Urine pH Urine WBC (Auto) Urine Creatinine Urine Total Protein Fluid Total Protein Vancomycin Trough Rheumatoid Factor Complement C4 Miscellaneous Test Crossmatch 09/03/16 09/03/16 09/03/16 17:57 17:58 23:50 WBC RBC Hgb Hct MCV MCH MCHC RDW Plt Count Lymph % (Auto) [place] % (Auto) Lymph # [place] # Baso # Seg Neutrophils % Seg Neuts % (Manual) Lymphocytes % (Manual) Monocytes % (Manual) Eosinophils % (Manual) Basophils % (Manual) Nucleated RBC % Seg Neutrophils # Seg Neutrophils # Man Lymphocytes # (Manual) Monocytes # (Manual) Eosinophils # (Manual) Basophils # (Manual) PT INR Fibrinogen dRVVT Confirm Interp Factor V Activity POC ABG pH POC ABG pCO2 POC ABG pO2 ABG pO2 ABG HCO3 ABG Base Excess ABG Hemoglobin Oxyhemoglobin Sodium Potassium Chloride Carbon Dioxide BUN Creatinine Glucose POC Glucose 162 H 145 H Lactic Acid Calcium Ionized Calcium Phosphorus 2.30 L Magnesium Direct Bilirubin AST ALT Alkaline Phosphatase Lactate Dehydrogenase Troponin T C-Reactive Protein Total Protein Albumin Prealbumin Triglycerides Cholesterol LDL Cholesterol Direct HDL Cholesterol 25-OH Vitamin D Total PTH Intact Urine pH Urine WBC (Auto) Urine Creatinine Urine Total Protein Fluid Total Protein Vancomycin Trough Rheumatoid Factor Complement C4 Miscellaneous Test Crossmatch 09/04/16 09/04/16 09/04/16 03:31 03:31 05:42 WBC RBC Hgb 9.7 L D Hct MCV 72 L MCH 23 L MCHC RDW 17.5 H Plt Count Lymph % (Auto) 11.1 L [place] % (Auto) Lymph # [place] # Baso # Seg Neutrophils % 84.3 H Seg Neuts % (Manual) Lymphocytes % (Manual) Monocytes % (Manual) Eosinophils % (Manual) Basophils % (Manual) Nucleated RBC % Seg Neutrophils # 8.9 H Seg Neutrophils # Man Lymphocytes # (Manual) Monocytes # (Manual) Eosinophils # (Manual) Basophils # (Manual) PT INR Fibrinogen dRVVT Confirm Interp Factor V Activity POC ABG pH POC ABG pCO2 POC ABG pO2 ABG pO2 ABG HCO3 ABG Base Excess ABG Hemoglobin Oxyhemoglobin Sodium 135 L Potassium 2.9 L* Chloride 97.2 L Carbon Dioxide 19 L BUN Creatinine 1.7 H Glucose 170 H POC Glucose 152 H Lactic Acid Calcium Ionized Calcium Phosphorus Magnesium Direct Bilirubin AST ALT Alkaline Phosphatase Lactate Dehydrogenase Troponin T C-Reactive Protein Total Protein Albumin Prealbumin Triglycerides 160 H Cholesterol LDL Cholesterol Direct HDL Cholesterol 31 L 25-OH Vitamin D Total PTH Intact Urine pH Urine WBC (Auto) Urine Creatinine Urine Total Protein Fluid Total Protein Vancomycin Trough Rheumatoid Factor Complement C4 Miscellaneous Test Crossmatch 09/04/16 09/04/16 09/04/16 11:34 17:46 23:29 WBC RBC Hgb Hct MCV MCH MCHC RDW Plt Count Lymph % (Auto) [place] % (Auto) Lymph # [place] # Baso # Seg Neutrophils % Seg Neuts % (Manual) Lymphocytes % (Manual) Monocytes % (Manual) Eosinophils % (Manual) Basophils % (Manual) Nucleated RBC % Seg Neutrophils # Seg Neutrophils # Man Lymphocytes # (Manual) Monocytes # (Manual) Eosinophils # (Manual) Basophils # (Manual) PT INR Fibrinogen dRVVT Confirm Interp Factor V Activity POC ABG pH POC ABG pCO2 POC ABG pO2 ABG pO2 ABG HCO3 ABG Base Excess ABG Hemoglobin Oxyhemoglobin Sodium Potassium Chloride Carbon Dioxide BUN Creatinine Glucose POC Glucose 165 H 210 H 139 H Lactic Acid Calcium Ionized Calcium Phosphorus Magnesium Direct Bilirubin AST ALT Alkaline Phosphatase Lactate Dehydrogenase Troponin T C-Reactive Protein Total Protein Albumin Prealbumin Triglycerides Cholesterol LDL Cholesterol Direct HDL Cholesterol 25-OH Vitamin D Total PTH Intact Urine pH Urine WBC (Auto) Urine Creatinine Urine Total Protein Fluid Total Protein Vancomycin Trough Rheumatoid Factor Complement C4 Miscellaneous Test Crossmatch 09/05/16 09/05/16 09/05/16 04:05 04:05 05:38 WBC RBC Hgb Hct MCV 76 L D MCH 23 L MCHC RDW 17.8 H Plt Count Lymph % (Auto) [place] % (Auto) Lymph # [place] # Baso # Seg Neutrophils % Seg Neuts % (Manual) Lymphocytes % (Manual) Monocytes % (Manual) Eosinophils % (Manual) Basophils % (Manual) Nucleated RBC % Seg Neutrophils # Seg Neutrophils # Man Lymphocytes # (Manual) Monocytes # (Manual) Eosinophils # (Manual) Basophils # (Manual) PT INR Fibrinogen dRVVT Confirm Interp Factor V Activity POC ABG pH POC ABG pCO2 POC ABG pO2 ABG pO2 ABG HCO3 ABG Base Excess ABG Hemoglobin Oxyhemoglobin Sodium 134 L Potassium Chloride Carbon Dioxide 18 L BUN Creatinine 1.8 H Glucose 192 H POC Glucose 175 H Lactic Acid Calcium Ionized Calcium Phosphorus Magnesium Direct Bilirubin AST ALT Alkaline Phosphatase Lactate Dehydrogenase Troponin T C-Reactive Protein Total Protein Albumin Prealbumin Triglycerides Cholesterol LDL Cholesterol Direct HDL Cholesterol 25-OH Vitamin D Total PTH Intact Urine pH Urine WBC (Auto) Urine Creatinine Urine Total Protein Fluid Total Protein Vancomycin Trough Rheumatoid Factor Complement C4 Miscellaneous Test Crossmatch 09/05/16 09/05/16 09/05/16 11:38 17:48 23:22 WBC RBC Hgb Hct MCV MCH MCHC RDW Plt Count Lymph % (Auto) [place] % (Auto) Lymph # [place] # Baso # Seg Neutrophils % Seg Neuts % (Manual) Lymphocytes % (Manual) Monocytes % (Manual) Eosinophils % (Manual) Basophils % (Manual) Nucleated RBC % Seg Neutrophils # Seg Neutrophils # Man Lymphocytes # (Manual) Monocytes # (Manual) Eosinophils # (Manual) Basophils # (Manual) PT INR Fibrinogen dRVVT Confirm Interp Factor V Activity POC ABG pH POC ABG pCO2 POC ABG pO2 ABG pO2 ABG HCO3 ABG Base Excess ABG Hemoglobin Oxyhemoglobin Sodium Potassium Chloride Carbon Dioxide BUN Creatinine Glucose POC Glucose 164 H 186 H 195 H Lactic Acid Calcium Ionized Calcium Phosphorus Magnesium Direct Bilirubin AST ALT Alkaline Phosphatase Lactate Dehydrogenase Troponin T C-Reactive Protein Total Protein Albumin Prealbumin Triglycerides Cholesterol LDL Cholesterol Direct HDL Cholesterol 25-OH Vitamin D Total PTH Intact Urine pH Urine WBC (Auto) Urine Creatinine Urine Total Protein Fluid Total Protein Vancomycin Trough Rheumatoid Factor Complement C4 Miscellaneous Test Crossmatch 09/06/16 09/06/16 09/06/16 04:12 05:59 07:32 WBC RBC Hgb Hct MCV MCH MCHC RDW Plt Count Lymph % (Auto) [place] % (Auto) Lymph # [place] # Baso # Seg Neutrophils % Seg Neuts % (Manual) Lymphocytes % (Manual) Monocytes % (Manual) Eosinophils % (Manual) Basophils % (Manual) Nucleated RBC % Seg Neutrophils # Seg Neutrophils # Man Lymphocytes # (Manual) Monocytes # (Manual) Eosinophils # (Manual) Basophils # (Manual) PT INR Fibrinogen dRVVT Confirm Interp Factor V Activity POC ABG pH 7.514 H POC ABG pCO2 29.1 L POC ABG pO2 72 L ABG pO2 ABG HCO3 ABG Base Excess ABG Hemoglobin Oxyhemoglobin Sodium 133 L Potassium 3.4 L Chloride 94.9 L Carbon Dioxide 19 L BUN 30 H Creatinine 2.1 H Glucose 139 H POC Glucose 146 H Lactic Acid Calcium Ionized Calcium Phosphorus Magnesium Direct Bilirubin AST ALT Alkaline Phosphatase Lactate Dehydrogenase Troponin T C-Reactive Protein Total Protein Albumin Prealbumin Triglycerides Cholesterol LDL Cholesterol Direct HDL Cholesterol 25-OH Vitamin D Total PTH Intact Urine pH Urine WBC (Auto) Urine Creatinine Urine Total Protein Fluid Total Protein Vancomycin Trough Rheumatoid Factor Complement C4 Miscellaneous Test Crossmatch 09/06/16 09/06/16 09/06/16 11:57 17:58 19:02 WBC RBC Hgb Hct MCV MCH MCHC RDW Plt Count Lymph % (Auto) [place] % (Auto) Lymph # [place] # Baso # Seg Neutrophils % Seg Neuts % (Manual) Lymphocytes % (Manual) Monocytes % (Manual) Eosinophils % (Manual) Basophils % (Manual) Nucleated RBC % Seg Neutrophils # Seg Neutrophils # Man Lymphocytes # (Manual) Monocytes # (Manual) Eosinophils # (Manual) Basophils # (Manual) PT INR Fibrinogen dRVVT Confirm Interp Factor V Activity POC ABG pH 7.465 H POC ABG pCO2 32.0 L POC ABG pO2 ABG pO2 ABG HCO3 ABG Base Excess ABG Hemoglobin Oxyhemoglobin Sodium Potassium Chloride Carbon Dioxide BUN Creatinine Glucose POC Glucose 165 H 160 H Lactic Acid Calcium Ionized Calcium Phosphorus Magnesium Direct Bilirubin AST ALT Alkaline Phosphatase Lactate Dehydrogenase Troponin T C-Reactive Protein Total Protein Albumin Prealbumin Triglycerides Cholesterol LDL Cholesterol Direct HDL Cholesterol 25-OH Vitamin D Total PTH Intact Urine pH Urine WBC (Auto) Urine Creatinine Urine Total Protein Fluid Total Protein Vancomycin Trough Rheumatoid Factor Complement C4 Miscellaneous Test Crossmatch 09/06/16 09/07/16 09/07/16 23:45 02:47 02:47 WBC RBC Hgb Hct MCV MCH MCHC RDW Plt Count Lymph % (Auto) [place] % (Auto) Lymph # [place] # Baso # Seg Neutrophils % Seg Neuts % (Manual) Lymphocytes % (Manual) Monocytes % (Manual) Eosinophils % (Manual) Basophils % (Manual) Nucleated RBC % Seg Neutrophils # Seg Neutrophils # Man Lymphocytes # (Manual) Monocytes # (Manual) Eosinophils # (Manual) Basophils # (Manual) PT INR Fibrinogen dRVVT Confirm Interp Factor V Activity POC ABG pH POC ABG pCO2 POC ABG pO2 ABG pO2 ABG HCO3 ABG Base Excess ABG Hemoglobin Oxyhemoglobin Sodium Potassium Chloride Carbon Dioxide BUN Creatinine Glucose POC Glucose 204 H Lactic Acid Calcium Ionized Calcium Phosphorus Magnesium Direct Bilirubin AST ALT Alkaline Phosphatase Lactate Dehydrogenase Troponin T C-Reactive Protein Total Protein Albumin Prealbumin Triglycerides Cholesterol LDL Cholesterol Direct HDL Cholesterol 25-OH Vitamin D Total PTH Intact Urine pH Urine WBC (Auto) 68.0 H Urine Creatinine 106.1 H Urine Total Protein Fluid Total Protein Vancomycin Trough Rheumatoid Factor Complement C4 Miscellaneous Test Crossmatch 09/07/16 09/07/16 09/07/16 04:50 06:19 06:39 WBC RBC Hgb Hct MCV MCH MCHC RDW Plt Count Lymph % (Auto) [place] % (Auto) Lymph # [place] # Baso # Seg Neutrophils % Seg Neuts % (Manual) Lymphocytes % (Manual) Monocytes % (Manual) Eosinophils % (Manual) Basophils % (Manual) Nucleated RBC % Seg Neutrophils # Seg Neutrophils # Man Lymphocytes # (Manual) Monocytes # (Manual) Eosinophils # (Manual) Basophils # (Manual) PT INR Fibrinogen dRVVT Confirm Interp Factor V Activity POC ABG pH 7.457 H POC ABG pCO2 32.1 L POC ABG pO2 76 L ABG pO2 ABG HCO3 ABG Base Excess ABG Hemoglobin Oxyhemoglobin Sodium 132 L Potassium Chloride 94.7 L Carbon Dioxide BUN 53 H Creatinine 2.9 H Glucose 151 H POC Glucose 149 H Lactic Acid Calcium Ionized Calcium Phosphorus Magnesium Direct Bilirubin AST ALT Alkaline Phosphatase Lactate Dehydrogenase Troponin T C-Reactive Protein Total Protein Albumin Prealbumin Triglycerides Cholesterol LDL Cholesterol Direct HDL Cholesterol 25-OH Vitamin D Total PTH Intact Urine pH Urine WBC (Auto) Urine Creatinine Urine Total Protein Fluid Total Protein Vancomycin Trough Rheumatoid Factor Complement C4 Miscellaneous Test Crossmatch 09/07/16 09/07/16 09/07/16 09:20 11:43 11:43 WBC 19.4 H RBC Hgb 8.3 L Hct 26.4 L D MCV 72 L D MCH 22 L MCHC RDW 17.9 H Plt Count Lymph % (Auto) 8.5 L [place] % (Auto) Lymph # [place] # 1.0 H Baso # Seg Neutrophils % 85.8 H Seg Neuts % (Manual) Lymphocytes % (Manual) Monocytes % (Manual) Eosinophils % (Manual) Basophils % (Manual) Nucleated RBC % Seg Neutrophils # 16.6 H Seg Neutrophils # Man Lymphocytes # (Manual) Monocytes # (Manual) Eosinophils # (Manual) Basophils # (Manual) PT INR Fibrinogen dRVVT Confirm Interp Factor V Activity POC ABG pH POC ABG pCO2 POC ABG pO2 ABG pO2 ABG HCO3 ABG Base Excess ABG Hemoglobin Oxyhemoglobin Sodium 134 L Potassium Chloride 97.2 L Carbon Dioxide 20 L BUN 58 H Creatinine 2.9 H Glucose 147 H POC Glucose Lactic Acid Calcium Ionized Calcium Phosphorus 2.40 L Magnesium 2.40 H Direct Bilirubin AST ALT Alkaline Phosphatase Lactate Dehydrogenase Troponin T C-Reactive Protein Total Protein 5.8 L Albumin 2.2 L Prealbumin Triglycerides Cholesterol LDL Cholesterol Direct HDL Cholesterol 25-OH Vitamin D Total PTH Intact Urine pH Urine WBC (Auto) Urine Creatinine Urine Total Protein Fluid Total Protein Vancomycin Trough Rheumatoid Factor Complement C4 58 H Miscellaneous Test Crossmatch 09/07/16 09/07/16 09/07/16 11:50 16:00 17:31 WBC RBC Hgb Hct MCV MCH MCHC RDW Plt Count Lymph % (Auto) [place] % (Auto) Lymph # [place] # Baso # Seg Neutrophils % Seg Neuts % (Manual) Lymphocytes % (Manual) Monocytes % (Manual) Eosinophils % (Manual) Basophils % (Manual) Nucleated RBC % Seg Neutrophils # Seg Neutrophils # Man Lymphocytes # (Manual) Monocytes # (Manual) Eosinophils # (Manual) Basophils # (Manual) PT INR Fibrinogen dRVVT Confirm Interp Factor V Activity POC ABG pH POC ABG pCO2 POC ABG pO2 158 H ABG pO2 ABG HCO3 ABG Base Excess ABG Hemoglobin Oxyhemoglobin Sodium Potassium Chloride Carbon Dioxide BUN Creatinine Glucose POC Glucose 175 H Lactic Acid Calcium Ionized Calcium Phosphorus Magnesium Direct Bilirubin AST ALT Alkaline Phosphatase Lactate Dehydrogenase Troponin T C-Reactive Protein Total Protein Albumin Prealbumin Triglycerides Cholesterol LDL Cholesterol Direct HDL Cholesterol 25-OH Vitamin D Total PTH Intact Urine pH Urine WBC (Auto) Urine Creatinine 66.3 H Urine Total Protein Fluid Total Protein Vancomycin Trough Rheumatoid Factor Complement C4 Miscellaneous Test Crossmatch 09/07/16 09/08/16 09/08/16 23:50 05:46 06:18 WBC 17.8 H RBC 3.58 L Hgb 8.1 L Hct 25.5 L MCV 71 L MCH 23 L MCHC RDW 18.4 H Plt Count Lymph % (Auto) Bow[place] % (Auto) Lymph # [place] # Baso # Seg Neutrophils % Seg Neuts % (Manual) 92.0 H Lymphocytes % (Manual) 6.0 L Monocytes % (Manual) Eosinophils % (Manual) Basophils % (Manual) Nucleated RBC % Seg Neutrophils # Seg Neutrophils # Man 16.4 H Lymphocytes # (Manual) 1.1 L Monocytes # (Manual) Eosinophils # (Manual) Basophils # (Manual) PT INR Fibrinogen dRVVT Confirm Interp Factor V Activity POC ABG pH POC ABG pCO2 34.3 L POC ABG pO2 71 L ABG pO2 ABG HCO3 ABG Base Excess ABG Hemoglobin Oxyhemoglobin Sodium Potassium Chloride Carbon Dioxide BUN Creatinine Glucose POC Glucose 216 H Lactic Acid Calcium Ionized Calcium Phosphorus Magnesium Direct Bilirubin AST ALT Alkaline Phosphatase Lactate Dehydrogenase Troponin T C-Reactive Protein Total Protein Albumin Prealbumin Triglycerides Cholesterol LDL Cholesterol Direct HDL Cholesterol 25-OH Vitamin D Total PTH Intact Urine pH Urine WBC (Auto) Urine Creatinine Urine Total Protein Fluid Total Protein Vancomycin Trough Rheumatoid Factor Complement C4 Miscellaneous Test Crossmatch 09/08/16 09/08/16 09/08/16 06:18 06:51 10:55 WBC RBC Hgb Hct MCV MCH MCHC RDW Plt Count Lymph % (Auto) [place] % (Auto) Lymph # [place] # Baso # Seg Neutrophils % Seg Neuts % (Manual) Lymphocytes % (Manual) Monocytes % (Manual) Eosinophils % (Manual) Basophils % (Manual) Nucleated RBC % Seg Neutrophils # Seg Neutrophils # Man Lymphocytes # (Manual) Monocytes # (Manual) Eosinophils # (Manual) Basophils # (Manual) PT INR Fibrinogen dRVVT Confirm Interp Factor V Activity POC ABG pH POC ABG pCO2 POC ABG pO2 ABG pO2 ABG HCO3 ABG Base Excess ABG Hemoglobin Oxyhemoglobin Sodium 133 L Potassium Chloride 96.9 L Carbon Dioxide 20 L BUN 63 H Creatinine 2.7 H Glucose 195 H POC Glucose 204 H 169 H Lactic Acid Calcium Ionized Calcium Phosphorus Magnesium Direct Bilirubin AST ALT Alkaline Phosphatase Lactate Dehydrogenase Troponin T C-Reactive Protein Total Protein Albumin Prealbumin Triglycerides Cholesterol LDL Cholesterol Direct HDL Cholesterol 25-OH Vitamin D Total PTH Intact Urine pH Urine WBC (Auto) Urine Creatinine Urine Total Protein Fluid Total Protein Vancomycin Trough Rheumatoid Factor Complement C4 Miscellaneous Test Crossmatch 09/08/16 09/08/16 09/08/16 11:48 11:48 11:48 WBC RBC Hgb Hct MCV MCH MCHC RDW Plt Count Lymph % (Auto) [place] % (Auto) Lymph # [place] # Baso # Seg Neutrophils % Seg Neuts % (Manual) Lymphocytes % (Manual) Monocytes % (Manual) Eosinophils % (Manual) Basophils % (Manual) Nucleated RBC % Seg Neutrophils # Seg Neutrophils # Man Lymphocytes # (Manual) Monocytes # (Manual) Eosinophils # (Manual) Basophils # (Manual) PT INR Fibrinogen 750 H dRVVT Confirm Interp Factor V Activity POC ABG pH POC ABG pCO2 POC ABG pO2 ABG pO2 ABG HCO3 ABG Base Excess ABG Hemoglobin Oxyhemoglobin Sodium Potassium Chloride Carbon Dioxide BUN Creatinine Glucose POC Glucose Lactic Acid Calcium Ionized Calcium Phosphorus Magnesium Direct Bilirubin AST ALT Alkaline Phosphatase Lactate Dehydrogenase Troponin T C-Reactive Protein 15.70 H Total Protein Albumin Prealbumin Triglycerides Cholesterol LDL Cholesterol Direct HDL Cholesterol 25-OH Vitamin D Total PTH Intact Urine pH Urine WBC (Auto) Urine Creatinine Urine Total Protein Fluid Total Protein Vancomycin Trough Rheumatoid Factor 24 H Complement C4 Miscellaneous Test Crossmatch 09/08/16 09/08/16 09/09/16 15:35 18:25 00:24 WBC RBC Hgb Hct MCV MCH MCHC RDW Plt Count Lymph % (Auto) [place] % (Auto) Lymph # [place] # Baso # Seg Neutrophils % Seg Neuts % (Manual) Lymphocytes % (Manual) Monocytes % (Manual) Eosinophils % (Manual) Basophils % (Manual) Nucleated RBC % Seg Neutrophils # Seg Neutrophils # Man Lymphocytes # (Manual) Monocytes # (Manual) Eosinophils # (Manual) Basophils # (Manual) PT INR Fibrinogen dRVVT Confirm Interp Factor V Activity 182 H POC ABG pH POC ABG pCO2 POC ABG pO2 ABG pO2 ABG HCO3 ABG Base Excess ABG Hemoglobin Oxyhemoglobin Sodium Potassium Chloride Carbon Dioxide BUN Creatinine Glucose POC Glucose 184 H 216 H Lactic Acid Calcium Ionized Calcium Phosphorus Magnesium Direct Bilirubin AST ALT Alkaline Phosphatase Lactate Dehydrogenase Troponin T C-Reactive Protein Total Protein Albumin Prealbumin Triglycerides Cholesterol LDL Cholesterol Direct HDL Cholesterol 25-OH Vitamin D Total PTH Intact Urine pH Urine WBC (Auto) Urine Creatinine Urine Total Protein Fluid Total Protein Vancomycin Trough Rheumatoid Factor Complement C4 Miscellaneous Test Crossmatch 09/09/16 09/09/16 09/09/16 03:00 03:00 04:04 WBC 27.9 H RBC Hgb 8.7 L Hct 28.1 L MCV 72 L MCH 22 L MCHC RDW 18.4 H Plt Count 485 H Lymph % (Auto) [place] % (Auto) Lymph # [place] # Baso # Seg Neutrophils % Seg Neuts % (Manual) 77.0 H Lymphocytes % (Manual) 9.0 L Monocytes % (Manual) Eosinophils % (Manual) Basophils % (Manual) Nucleated RBC % Seg Neutrophils # Seg Neutrophils # Man 21.5 H Lymphocytes # (Manual) Monocytes # (Manual) 2.0 H Eosinophils # (Manual) Basophils # (Manual) PT INR Fibrinogen dRVVT Confirm Interp Factor V Activity POC ABG pH POC ABG pCO2 POC ABG pO2 121 H ABG pO2 ABG HCO3 ABG Base Excess ABG Hemoglobin Oxyhemoglobin Sodium 135 L Potassium Chloride 96.3 L Carbon Dioxide 21 L BUN 83 H Creatinine 3.0 H Glucose 135 H POC Glucose Lactic Acid Calcium Ionized Calcium Phosphorus Magnesium Direct Bilirubin AST ALT Alkaline Phosphatase Lactate Dehydrogenase Troponin T C-Reactive Protein Total Protein Albumin Prealbumin Triglycerides Cholesterol LDL Cholesterol Direct HDL Cholesterol 25-OH Vitamin D Total PTH Intact Urine pH Urine WBC (Auto) Urine Creatinine Urine Total Protein Fluid Total Protein Vancomycin Trough Rheumatoid Factor Complement C4 Miscellaneous Test Crossmatch 09/09/16 09/09/16 09/09/16 05:41 11:55 14:13 WBC RBC Hgb Hct MCV MCH MCHC RDW Plt Count Lymph % (Auto) [place] % (Auto) Lymph # [place] # Baso # Seg Neutrophils % Seg Neuts % (Manual) Lymphocytes % (Manual) Monocytes % (Manual) Eosinophils % (Manual) Basophils % (Manual) Nucleated RBC % Seg Neutrophils # Seg Neutrophils # Man Lymphocytes # (Manual) Monocytes # (Manual) Eosinophils # (Manual) Basophils # (Manual) PT INR Fibrinogen dRVVT Confirm Interp Factor V Activity POC ABG pH POC ABG pCO2 POC ABG pO2 ABG pO2 ABG HCO3 ABG Base Excess ABG Hemoglobin Oxyhemoglobin Sodium Potassium Chloride Carbon Dioxide BUN Creatinine Glucose POC Glucose 155 H 186 H Lactic Acid Calcium Ionized Calcium Phosphorus Magnesium Direct Bilirubin AST ALT Alkaline Phosphatase Lactate Dehydrogenase Troponin T C-Reactive Protein Total Protein Albumin Prealbumin Triglycerides Cholesterol LDL Cholesterol Direct HDL Cholesterol 25-OH Vitamin D Total PTH Intact Urine pH Urine WBC (Auto) 25.0 H Urine Creatinine Urine Total Protein Fluid Total Protein Vancomycin Trough Rheumatoid Factor Complement C4 Miscellaneous Test Crossmatch 09/09/16 09/09/16 09/10/16 17:33 23:13 05:09 WBC RBC Hgb Hct MCV MCH MCHC RDW Plt Count Lymph % (Auto) [place] % (Auto) Lymph # [place] # Baso # Seg Neutrophils % Seg Neuts % (Manual) Lymphocytes % (Manual) Monocytes % (Manual) Eosinophils % (Manual) Basophils % (Manual) Nucleated RBC % Seg Neutrophils # Seg Neutrophils # Man Lymphocytes # (Manual) Monocytes # (Manual) Eosinophils # (Manual) Basophils # (Manual) PT INR Fibrinogen dRVVT Confirm Interp Factor V Activity POC ABG pH POC ABG pCO2 POC ABG pO2 74 L ABG pO2 ABG HCO3 ABG Base Excess ABG Hemoglobin Oxyhemoglobin Sodium Potassium Chloride Carbon Dioxide BUN Creatinine Glucose POC Glucose 211 H 215 H Lactic Acid Calcium Ionized Calcium Phosphorus Magnesium Direct Bilirubin AST ALT Alkaline Phosphatase Lactate Dehydrogenase Troponin T C-Reactive Protein Total Protein Albumin Prealbumin Triglycerides Cholesterol LDL Cholesterol Direct HDL Cholesterol 25-OH Vitamin D Total PTH Intact Urine pH Urine WBC (Auto) Urine Creatinine Urine Total Protein Fluid Total Protein Vancomycin Trough Rheumatoid Factor Complement C4 Miscellaneous Test Crossmatch 09/10/16 09/10/16 09/10/16 05:17 05:17 11:31 WBC 15.8 H RBC 3.25 L Hgb 7.3 L Hct 22.9 L MCV 71 L MCH 23 L MCHC RDW 18.4 H Plt Count Lymph % (Auto) [place] % (Auto) Lymph # [place] # Baso # Seg Neutrophils % Seg Neuts % (Manual) 91.0 H Lymphocytes % (Manual) 4.0 L Monocytes % (Manual) Eosinophils % (Manual) Basophils % (Manual) Nucleated RBC % Seg Neutrophils # Seg Neutrophils # Man 14.4 H Lymphocytes # (Manual) 0.6 L Monocytes # (Manual) Eosinophils # (Manual) Basophils # (Manual) PT INR Fibrinogen dRVVT Confirm Interp Factor V Activity POC ABG pH POC ABG pCO2 POC ABG pO2 ABG pO2 ABG HCO3 ABG Base Excess ABG Hemoglobin Oxyhemoglobin Sodium Potassium Chloride Carbon Dioxide 21 L BUN 93 H Creatinine 2.9 H Glucose 146 H POC Glucose 188 H Lactic Acid Calcium 8.1 L Ionized Calcium Phosphorus Magnesium Direct Bilirubin AST ALT Alkaline Phosphatase Lactate Dehydrogenase Troponin T C-Reactive Protein Total Protein Albumin Prealbumin Triglycerides Cholesterol LDL Cholesterol Direct HDL Cholesterol 25-OH Vitamin D Total PTH Intact Urine pH Urine WBC (Auto) Urine Creatinine Urine Total Protein Fluid Total Protein Vancomycin Trough Rheumatoid Factor Complement C4 Miscellaneous Test Crossmatch 09/10/16 09/10/16 09/10/16 13:17 17:20 23:32 WBC RBC Hgb Hct MCV MCH MCHC RDW Plt Count Lymph % (Auto) [place] % (Auto) Lymph # [place] # Baso # Seg Neutrophils % Seg Neuts % (Manual) Lymphocytes % (Manual) Monocytes % (Manual) Eosinophils % (Manual) Basophils % (Manual) Nucleated RBC % Seg Neutrophils # Seg Neutrophils # Man Lymphocytes # (Manual) Monocytes # (Manual) Eosinophils # (Manual) Basophils # (Manual) PT INR Fibrinogen dRVVT Confirm Interp Factor V Activity POC ABG pH POC ABG pCO2 POC ABG pO2 ABG pO2 ABG HCO3 ABG Base Excess ABG Hemoglobin Oxyhemoglobin Sodium Potassium Chloride Carbon Dioxide BUN Creatinine Glucose POC Glucose 199 H 186 H Lactic Acid Calcium Ionized Calcium Phosphorus Magnesium Direct Bilirubin AST ALT Alkaline Phosphatase Lactate Dehydrogenase Troponin T C-Reactive Protein Total Protein Albumin Prealbumin Triglycerides Cholesterol LDL Cholesterol Direct HDL Cholesterol 25-OH Vitamin D Total PTH Intact Urine pH Urine WBC (Auto) Urine Creatinine Urine Total Protein Fluid Total Protein Vancomycin Trough Rheumatoid Factor Complement C4 Miscellaneous Test Crossmatch See Detail 09/11/16 09/11/16 09/11/16 05:10 05:10 05:17 WBC 28.4 H RBC Hgb 9.2 L Hct 29.3 L D MCV 73 L MCH 23 L MCHC RDW 18.9 H Plt Count 452 H Lymph % (Auto) [place] % (Auto) Lymph # [place] # Baso # Seg Neutrophils % Seg Neuts % (Manual) 89.5 H Lymphocytes % (Manual) 2.0 L Monocytes % (Manual) Eosinophils % (Manual) Basophils % (Manual) Nucleated RBC % Seg Neutrophils # Seg Neutrophils # Man 25.4 H Lymphocytes # (Manual) 0.6 L Monocytes # (Manual) 1.3 H Eosinophils # (Manual) Basophils # (Manual) PT INR Fibrinogen dRVVT Confirm Interp Factor V Activity POC ABG pH POC ABG pCO2 POC ABG pO2 ABG pO2 ABG HCO3 ABG Base Excess ABG Hemoglobin Oxyhemoglobin Sodium 136 L Potassium Chloride Carbon Dioxide 18 L BUN 107 H Creatinine 2.6 H Glucose 187 H POC Glucose 230 H Lactic Acid Calcium 8.3 L Ionized Calcium Phosphorus Magnesium Direct Bilirubin AST ALT Alkaline Phosphatase Lactate Dehydrogenase Troponin T C-Reactive Protein Total Protein Albumin Prealbumin Triglycerides Cholesterol LDL Cholesterol Direct HDL Cholesterol 25-OH Vitamin D Total PTH Intact Urine pH Urine WBC (Auto) Urine Creatinine Urine Total Protein Fluid Total Protein Vancomycin Trough Rheumatoid Factor Complement C4 Miscellaneous Test Crossmatch 09/11/16 09/11/16 09/11/16 05:55 12:02 17:32 WBC RBC Hgb Hct MCV MCH MCHC RDW Plt Count Lymph % (Auto) [place] % (Auto) Lymph # [place] # Baso # Seg Neutrophils % Seg Neuts % (Manual) Lymphocytes % (Manual) Monocytes % (Manual) Eosinophils % (Manual) Basophils % (Manual) Nucleated RBC % Seg Neutrophils # Seg Neutrophils # Man Lymphocytes # (Manual) Monocytes # (Manual) Eosinophils # (Manual) Basophils # (Manual) PT INR Fibrinogen dRVVT Confirm Interp Factor V Activity POC ABG pH POC ABG pCO2 33.8 L POC ABG pO2 ABG pO2 ABG HCO3 ABG Base Excess ABG Hemoglobin Oxyhemoglobin Sodium Potassium Chloride Carbon Dioxide BUN Creatinine Glucose POC Glucose 191 H 239 H Lactic Acid Calcium Ionized Calcium Phosphorus Magnesium Direct Bilirubin AST ALT Alkaline Phosphatase Lactate Dehydrogenase Troponin T C-Reactive Protein Total Protein Albumin Prealbumin Triglycerides Cholesterol LDL Cholesterol Direct HDL Cholesterol 25-OH Vitamin D Total PTH Intact Urine pH Urine WBC (Auto) Urine Creatinine Urine Total Protein Fluid Total Protein Vancomycin Trough Rheumatoid Factor Complement C4 Miscellaneous Test Crossmatch 09/11/16 09/12/16 09/12/16 23:52 05:09 05:32 WBC RBC Hgb Hct MCV MCH MCHC RDW Plt Count Lymph % (Auto) [place] % (Auto) Lymph # [place] # Baso # Seg Neutrophils % Seg Neuts % (Manual) Lymphocytes % (Manual) Monocytes % (Manual) Eosinophils % (Manual) Basophils % (Manual) Nucleated RBC % Seg Neutrophils # Seg Neutrophils # Man Lymphocytes # (Manual) Monocytes # (Manual) Eosinophils # (Manual) Basophils # (Manual) PT INR Fibrinogen dRVVT Confirm Interp Factor V Activity POC ABG pH POC ABG pCO2 34.6 L POC ABG pO2 ABG pO2 ABG HCO3 ABG Base Excess ABG Hemoglobin Oxyhemoglobin Sodium Potassium Chloride Carbon Dioxide BUN Creatinine Glucose POC Glucose 265 H 184 H Lactic Acid Calcium Ionized Calcium Phosphorus Magnesium Direct Bilirubin AST ALT Alkaline Phosphatase Lactate Dehydrogenase Troponin T C-Reactive Protein Total Protein Albumin Prealbumin Triglycerides Cholesterol LDL Cholesterol Direct HDL Cholesterol 25-OH Vitamin D Total PTH Intact Urine pH Urine WBC (Auto) Urine Creatinine Urine Total Protein Fluid Total Protein Vancomycin Trough Rheumatoid Factor Complement C4 Miscellaneous Test Crossmatch 09/12/16 09/12/16 09/12/16 06:45 06:45 07:22 WBC 31.7 H RBC 3.54 L Hgb 8.3 L Hct 25.9 L MCV 73 L MCH 23 L MCHC RDW 18.9 H Plt Count Lymph % (Auto) [place] % (Auto) Lymph # [place] # Baso # Seg Neutrophils % Seg Neuts % (Manual) 88.5 H Lymphocytes % (Manual) 4.5 L Monocytes % (Manual) Eosinophils % (Manual) Basophils % (Manual) Nucleated RBC % Seg Neutrophils # Seg Neutrophils # Man 28.1 H Lymphocytes # (Manual) Monocytes # (Manual) 1.0 H Eosinophils # (Manual) Basophils # (Manual) PT INR Fibrinogen dRVVT Confirm Interp Factor V Activity POC ABG pH POC ABG pCO2 POC ABG pO2 ABG pO2 ABG HCO3 ABG Base Excess ABG Hemoglobin Oxyhemoglobin Sodium Potassium Chloride Carbon Dioxide 20 L BUN 115 H Creatinine 2.7 H Glucose 165 H POC Glucose Lactic Acid Calcium 8.0 L Ionized Calcium Phosphorus Magnesium Direct Bilirubin AST ALT Alkaline Phosphatase Lactate Dehydrogenase Troponin T C-Reactive Protein Total Protein Albumin Prealbumin Triglycerides 217 H Cholesterol LDL Cholesterol Direct HDL Cholesterol 25-OH Vitamin D Total PTH Intact Urine pH Urine WBC (Auto) Urine Creatinine Urine Total Protein Fluid Total Protein Vancomycin Trough Rheumatoid Factor Complement C4 Miscellaneous Test Crossmatch 09/12/16 09/12/16 09/12/16 07:22 09:59 12:21 WBC RBC Hgb Hct MCV MCH MCHC RDW Plt Count Lymph % (Auto) [place] % (Auto) Lymph # [place] # Baso # Seg Neutrophils % Seg Neuts % (Manual) Lymphocytes % (Manual) Monocytes % (Manual) Eosinophils % (Manual) Basophils % (Manual) Nucleated RBC % Seg Neutrophils # Seg Neutrophils # Man Lymphocytes # (Manual) Monocytes # (Manual) Eosinophils # (Manual) Basophils # (Manual) PT INR Fibrinogen dRVVT Confirm Interp Positive H Factor V Activity POC ABG pH POC ABG pCO2 POC ABG pO2 ABG pO2 ABG HCO3 ABG Base Excess ABG Hemoglobin Oxyhemoglobin Sodium Potassium Chloride Carbon Dioxide BUN Creatinine Glucose POC Glucose 224 H Lactic Acid Calcium Ionized Calcium Phosphorus Magnesium Direct Bilirubin AST ALT Alkaline Phosphatase Lactate Dehydrogenase Troponin T C-Reactive Protein 1.70 H Total Protein Albumin Prealbumin Triglycerides Cholesterol LDL Cholesterol Direct HDL Cholesterol 25-OH Vitamin D Total PTH Intact Urine pH Urine WBC (Auto) Urine Creatinine Urine Total Protein Fluid Total Protein Vancomycin Trough Rheumatoid Factor Complement C4 Miscellaneous Test Crossmatch 09/12/16 09/12/16 09/13/16 16:51 23:28 04:00 WBC 45.0 H* RBC Hgb 9.4 L Hct MCV 75 L MCH 23 L MCHC RDW 19.0 H Plt Count 470 H Lymph % (Auto) [place] % (Auto) Lymph # [place] # Baso # Seg Neutrophils % Seg Neuts % (Manual) 89.0 H Lymphocytes % (Manual) 5.0 L Monocytes % (Manual) Eosinophils % (Manual) Basophils % (Manual) Nucleated RBC % Seg Neutrophils # Seg Neutrophils # Man 40.1 H Lymphocytes # (Manual) Monocytes # (Manual) Eosinophils # (Manual) Basophils # (Manual) PT INR Fibrinogen dRVVT Confirm Interp Factor V Activity POC ABG pH POC ABG pCO2 POC ABG pO2 ABG pO2 ABG HCO3 ABG Base Excess ABG Hemoglobin Oxyhemoglobin Sodium Potassium Chloride Carbon Dioxide BUN Creatinine Glucose POC Glucose 169 H 150 H Lactic Acid Calcium Ionized Calcium Phosphorus Magnesium Direct Bilirubin AST ALT Alkaline Phosphatase Lactate Dehydrogenase Troponin T C-Reactive Protein Total Protein Albumin Prealbumin Triglycerides Cholesterol LDL Cholesterol Direct HDL Cholesterol 25-OH Vitamin D Total PTH Intact Urine pH Urine WBC (Auto) Urine Creatinine Urine Total Protein Fluid Total Protein Vancomycin Trough Rheumatoid Factor Complement C4 Miscellaneous Test Crossmatch 09/13/16 09/13/16 09/13/16 04:00 11:26 17:31 WBC RBC Hgb Hct MCV MCH MCHC RDW Plt Count Lymph % (Auto) [place] % (Auto) Lymph # [place] # Baso # Seg Neutrophils % Seg Neuts % (Manual) Lymphocytes % (Manual) Monocytes % (Manual) Eosinophils % (Manual) Basophils % (Manual) Nucleated RBC % Seg Neutrophils # Seg Neutrophils # Man Lymphocytes # (Manual) Monocytes # (Manual) Eosinophils # (Manual) Basophils # (Manual) PT INR Fibrinogen dRVVT Confirm Interp Factor V Activity POC ABG pH POC ABG pCO2 POC ABG pO2 ABG pO2 ABG HCO3 ABG Base Excess ABG Hemoglobin Oxyhemoglobin Sodium Potassium Chloride Carbon Dioxide 20 L BUN 116 H Creatinine 3.0 H Glucose 172 H POC Glucose 140 H 183 H Lactic Acid Calcium Ionized Calcium Phosphorus Magnesium Direct Bilirubin AST ALT Alkaline Phosphatase Lactate Dehydrogenase Troponin T C-Reactive Protein Total Protein 6.2 L Albumin 2.9 L Prealbumin Triglycerides Cholesterol LDL Cholesterol Direct HDL Cholesterol 25-OH Vitamin D Total PTH Intact Urine pH Urine WBC (Auto) Urine Creatinine Urine Total Protein Fluid Total Protein Vancomycin Trough Rheumatoid Factor Complement C4 Miscellaneous Test Crossmatch 09/13/16 09/14/16 09/14/16 23:23 04:06 04:07 WBC 29.4 H RBC Hgb 8.9 L Hct 27.3 L MCV 75 L MCH 24 L MCHC RDW 19.1 H Plt Count Lymph % (Auto) [place] % (Auto) Lymph # [place] # Baso # Seg Neutrophils % Seg Neuts % (Manual) 84.0 H Lymphocytes % (Manual) 6.0 L Monocytes % (Manual) 9.0 H Eosinophils % (Manual) Basophils % (Manual) Nucleated RBC % Seg Neutrophils # Seg Neutrophils # Man 24.7 H Lymphocytes # (Manual) Monocytes # (Manual) 2.6 H Eosinophils # (Manual) Basophils # (Manual) PT INR Fibrinogen dRVVT Confirm Interp Factor V Activity POC ABG pH 7.342 L POC ABG pCO2 POC ABG pO2 116 H ABG pO2 ABG HCO3 ABG Base Excess ABG Hemoglobin Oxyhemoglobin Sodium Potassium Chloride Carbon Dioxide BUN Creatinine Glucose POC Glucose 154 H Lactic Acid Calcium Ionized Calcium Phosphorus Magnesium Direct Bilirubin AST ALT Alkaline Phosphatase Lactate Dehydrogenase Troponin T C-Reactive Protein Total Protein Albumin Prealbumin Triglycerides Cholesterol LDL Cholesterol Direct HDL Cholesterol 25-OH Vitamin D Total PTH Intact Urine pH Urine WBC (Auto) Urine Creatinine Urine Total Protein Fluid Total Protein Vancomycin Trough Rheumatoid Factor Complement C4 Miscellaneous Test Crossmatch 09/14/16 09/14/16 09/14/16 04:07 05:29 12:19 WBC RBC Hgb Hct MCV MCH MCHC RDW Plt Count Lymph % (Auto) [place] % (Auto) Lymph # [place] # Baso # Seg Neutrophils % Seg Neuts % (Manual) Lymphocytes % (Manual) Monocytes % (Manual) Eosinophils % (Manual) Basophils % (Manual) Nucleated RBC % Seg Neutrophils # Seg Neutrophils # Man Lymphocytes # (Manual) Monocytes # (Manual) Eosinophils # (Manual) Basophils # (Manual) PT INR Fibrinogen dRVVT Confirm Interp Factor V Activity POC ABG pH POC ABG pCO2 POC ABG pO2 ABG pO2 ABG HCO3 ABG Base Excess ABG Hemoglobin Oxyhemoglobin Sodium 136 L Potassium Chloride Carbon Dioxide 18 L BUN 121 H Creatinine 2.8 H Glucose 214 H POC Glucose 239 H 181 H Lactic Acid Calcium Ionized Calcium Phosphorus Magnesium Direct Bilirubin AST ALT Alkaline Phosphatase Lactate Dehydrogenase Troponin T C-Reactive Protein Total Protein Albumin Prealbumin Triglycerides Cholesterol LDL Cholesterol Direct HDL Cholesterol 25-OH Vitamin D Total PTH Intact Urine pH Urine WBC (Auto) Urine Creatinine Urine Total Protein Fluid Total Protein Vancomycin Trough Rheumatoid Factor Complement C4 Miscellaneous Test Crossmatch 09/14/16 09/14/16 09/15/16 18:12 23:37 05:00 WBC 26.1 H RBC 3.05 L Hgb 7.2 L Hct 22.9 L MCV 75 L MCH 24 L MCHC RDW 19.0 H Plt Count Lymph % (Auto) [place] % (Auto) Lymph # [place] # Baso # Seg Neutrophils % Seg Neuts % (Manual) Lymphocytes % (Manual) Monocytes % (Manual) Eosinophils % (Manual) Basophils % (Manual) Nucleated RBC % Seg Neutrophils # Seg Neutrophils # Man Lymphocytes # (Manual) Monocytes # (Manual) Eosinophils # (Manual) Basophils # (Manual) PT INR Fibrinogen dRVVT Confirm Interp Factor V Activity POC ABG pH POC ABG pCO2 POC ABG pO2 ABG pO2 ABG HCO3 ABG Base Excess ABG Hemoglobin Oxyhemoglobin Sodium Potassium Chloride Carbon Dioxide BUN Creatinine Glucose POC Glucose 266 H 154 H Lactic Acid Calcium Ionized Calcium Phosphorus Magnesium Direct Bilirubin AST ALT Alkaline Phosphatase Lactate Dehydrogenase Troponin T C-Reactive Protein Total Protein Albumin Prealbumin Triglycerides Cholesterol LDL Cholesterol Direct HDL Cholesterol 25-OH Vitamin D Total PTH Intact Urine pH Urine WBC (Auto) Urine Creatinine Urine Total Protein Fluid Total Protein Vancomycin Trough Rheumatoid Factor Complement C4 Miscellaneous Test Crossmatch 09/15/16 09/15/16 09/15/16 05:00 05:17 12:45 WBC RBC Hgb Hct MCV MCH MCHC RDW Plt Count Lymph % (Auto) [place] % (Auto) Lymph # [place] # Baso # Seg Neutrophils % Seg Neuts % (Manual) Lymphocytes % (Manual) Monocytes % (Manual) Eosinophils % (Manual) Basophils % (Manual) Nucleated RBC % Seg Neutrophils # Seg Neutrophils # Man Lymphocytes # (Manual) Monocytes # (Manual) Eosinophils # (Manual) Basophils # (Manual) PT INR Fibrinogen dRVVT Confirm Interp Factor V Activity POC ABG pH POC ABG pCO2 POC ABG pO2 ABG pO2 ABG HCO3 ABG Base Excess ABG Hemoglobin Oxyhemoglobin Sodium Potassium 5.2 H Chloride Carbon Dioxide 18 L BUN 139 H Creatinine 3.7 H Glucose 227 H POC Glucose 226 H 244 H Lactic Acid Calcium 8.3 L Ionized Calcium Phosphorus Magnesium Direct Bilirubin AST ALT Alkaline Phosphatase Lactate Dehydrogenase Troponin T C-Reactive Protein Total Protein Albumin Prealbumin Triglycerides Cholesterol LDL Cholesterol Direct HDL Cholesterol 25-OH Vitamin D Total PTH Intact Urine pH Urine WBC (Auto) Urine Creatinine Urine Total Protein Fluid Total Protein Vancomycin Trough Rheumatoid Factor Complement C4 Miscellaneous Test Crossmatch 09/15/16 09/15/16 09/15/16 14:32 17:33 23:35 WBC RBC Hgb Hct MCV MCH MCHC RDW Plt Count Lymph % (Auto) [place] % (Auto) Lymph # [place] # Baso # Seg Neutrophils % Seg Neuts % (Manual) Lymphocytes % (Manual) Monocytes % (Manual) Eosinophils % (Manual) Basophils % (Manual) Nucleated RBC % Seg Neutrophils # Seg Neutrophils # Man Lymphocytes # (Manual) Monocytes # (Manual) Eosinophils # (Manual) Basophils # (Manual) PT INR Fibrinogen dRVVT Confirm Interp Factor V Activity POC ABG pH POC ABG pCO2 27.7 L POC ABG pO2 120 H ABG pO2 ABG HCO3 ABG Base Excess ABG Hemoglobin Oxyhemoglobin Sodium Potassium Chloride Carbon Dioxide BUN Creatinine Glucose POC Glucose 232 H 167 H Lactic Acid Calcium Ionized Calcium Phosphorus Magnesium Direct Bilirubin AST ALT Alkaline Phosphatase Lactate Dehydrogenase Troponin T C-Reactive Protein Total Protein Albumin Prealbumin Triglycerides Cholesterol LDL Cholesterol Direct HDL Cholesterol 25-OH Vitamin D Total PTH Intact Urine pH Urine WBC (Auto) Urine Creatinine Urine Total Protein Fluid Total Protein Vancomycin Trough Rheumatoid Factor Complement C4 Miscellaneous Test Crossmatch 09/16/16 09/16/16 09/16/16 03:58 10:27 10:27 WBC 19.0 H RBC 2.77 L Hgb 6.5 L Hct 20.9 L MCV 76 L MCH 23 L MCHC RDW 19.3 H Plt Count Lymph % (Auto) 11.0 L [place] % (Auto) Lymph # [place] # 1.1 H Baso # Seg Neutrophils % 82.5 H Seg Neuts % (Manual) Lymphocytes % (Manual) Monocytes % (Manual) Eosinophils % (Manual) Basophils % (Manual) Nucleated RBC % Seg Neutrophils # 15.7 H Seg Neutrophils # Man Lymphocytes # (Manual) Monocytes # (Manual) Eosinophils # (Manual) Basophils # (Manual) PT INR Fibrinogen dRVVT Confirm Interp Factor V Activity POC ABG pH POC ABG pCO2 POC ABG pO2 ABG pO2 ABG HCO3 ABG Base Excess ABG Hemoglobin Oxyhemoglobin Sodium Potassium Chloride 109.3 H Carbon Dioxide 18 L BUN 139 H Creatinine 4.1 H Glucose 144 H POC Glucose 146 H Lactic Acid Calcium 8.1 L Ionized Calcium Phosphorus Magnesium Direct Bilirubin AST ALT Alkaline Phosphatase Lactate Dehydrogenase Troponin T C-Reactive Protein Total Protein Albumin Prealbumin Triglycerides Cholesterol LDL Cholesterol Direct HDL Cholesterol 25-OH Vitamin D Total PTH Intact Urine pH Urine WBC (Auto) Urine Creatinine Urine Total Protein Fluid Total Protein Vancomycin Trough Rheumatoid Factor Complement C4 Miscellaneous Test Crossmatch 09/16/16 09/16/16 09/16/16 12:04 12:10 13:55 WBC RBC Hgb Hct MCV MCH MCHC RDW Plt Count Lymph % (Auto) [place] % (Auto) Lymph # [place] # Baso # Seg Neutrophils % Seg Neuts % (Manual) Lymphocytes % (Manual) Monocytes % (Manual) Eosinophils % (Manual) Basophils % (Manual) Nucleated RBC % Seg Neutrophils # Seg Neutrophils # Man Lymphocytes # (Manual) Monocytes # (Manual) Eosinophils # (Manual) Basophils # (Manual) PT INR Fibrinogen dRVVT Confirm Interp Factor V Activity POC ABG pH POC ABG pCO2 32.9 L POC ABG pO2 ABG pO2 ABG HCO3 ABG Base Excess ABG Hemoglobin Oxyhemoglobin Sodium Potassium Chloride Carbon Dioxide BUN Creatinine Glucose POC Glucose 185 H Lactic Acid Calcium Ionized Calcium Phosphorus Magnesium Direct Bilirubin AST ALT Alkaline Phosphatase Lactate Dehydrogenase Troponin T C-Reactive Protein Total Protein Albumin Prealbumin Triglycerides Cholesterol LDL Cholesterol Direct HDL Cholesterol 25-OH Vitamin D Total PTH Intact Urine pH Urine WBC (Auto) Urine Creatinine Urine Total Protein Fluid Total Protein Vancomycin Trough Rheumatoid Factor Complement C4 Miscellaneous Test Crossmatch See Detail 09/16/16 09/16/16 09/16/16 17:55 19:19 23:48 WBC RBC Hgb Hct MCV MCH MCHC RDW Plt Count Lymph % (Auto) [place] % (Auto) Lymph # [place] # Baso # Seg Neutrophils % Seg Neuts % (Manual) Lymphocytes % (Manual) Monocytes % (Manual) Eosinophils % (Manual) Basophils % (Manual) Nucleated RBC % Seg Neutrophils # Seg Neutrophils # Man Lymphocytes # (Manual) Monocytes # (Manual) Eosinophils # (Manual) Basophils # (Manual) PT INR Fibrinogen dRVVT Confirm Interp Factor V Activity POC ABG pH POC ABG pCO2 POC ABG pO2 ABG pO2 ABG HCO3 ABG Base Excess ABG Hemoglobin Oxyhemoglobin Sodium Potassium Chloride Carbon Dioxide BUN Creatinine Glucose POC Glucose 222 H 107 H Lactic Acid Calcium Ionized Calcium Phosphorus Magnesium Direct Bilirubin AST ALT Alkaline Phosphatase Lactate Dehydrogenase Troponin T C-Reactive Protein Total Protein Albumin Prealbumin Triglycerides Cholesterol LDL Cholesterol Direct HDL Cholesterol 25-OH Vitamin D Total PTH Intact Urine pH Urine WBC (Auto) Urine Creatinine 47.4 H Urine Total Protein 16 H Fluid Total Protein Vancomycin Trough Rheumatoid Factor Complement C4 Miscellaneous Test Crossmatch 09/17/16 09/17/16 09/17/16 03:45 03:45 04:55 WBC 19.6 H RBC 3.41 L Hgb 8.5 L Hct 26.7 L MCV 78 L MCH 25 L MCHC RDW 19.9 H Plt Count Lymph % (Auto) 9.3 L [place] % (Auto) Lymph # [place] # 1.2 H Baso # Seg Neutrophils % 83.9 H Seg Neuts % (Manual) Lymphocytes % (Manual) Monocytes % (Manual) Eosinophils % (Manual) Basophils % (Manual) Nucleated RBC % Seg Neutrophils # 16.4 H Seg Neutrophils # Man Lymphocytes # (Manual) Monocytes # (Manual) Eosinophils # (Manual) Basophils # (Manual) PT INR Fibrinogen dRVVT Confirm Interp Factor V Activity POC ABG pH POC ABG pCO2 POC ABG pO2 ABG pO2 ABG HCO3 ABG Base Excess ABG Hemoglobin Oxyhemoglobin Sodium 146 H Potassium 5.1 H Chloride 110.9 H Carbon Dioxide 16 L BUN 146 H Creatinine 4.0 H Glucose 108 H POC Glucose 133 H Lactic Acid Calcium Ionized Calcium Phosphorus Magnesium 3.00 H Direct Bilirubin AST ALT Alkaline Phosphatase Lactate Dehydrogenase Troponin T C-Reactive Protein Total Protein Albumin Prealbumin Triglycerides Cholesterol LDL Cholesterol Direct HDL Cholesterol 25-OH Vitamin D Total PTH Intact Urine pH Urine WBC (Auto) Urine Creatinine Urine Total Protein Fluid Total Protein Vancomycin Trough Rheumatoid Factor Complement C4 Miscellaneous Test Crossmatch 09/17/16 09/17/16 09/17/16 11:15 17:33 23:47 WBC RBC Hgb Hct MCV MCH MCHC RDW Plt Count Lymph % (Auto) [place] % (Auto) Lymph # [place] # Baso # Seg Neutrophils % Seg Neuts % (Manual) Lymphocytes % (Manual) Monocytes % (Manual) Eosinophils % (Manual) Basophils % (Manual) Nucleated RBC % Seg Neutrophils # Seg Neutrophils # Man Lymphocytes # (Manual) Monocytes # (Manual) Eosinophils # (Manual) Basophils # (Manual) PT INR Fibrinogen dRVVT Confirm Interp Factor V Activity POC ABG pH POC ABG pCO2 POC ABG pO2 ABG pO2 ABG HCO3 ABG Base Excess ABG Hemoglobin Oxyhemoglobin Sodium Potassium Chloride Carbon Dioxide BUN Creatinine Glucose POC Glucose 176 H 246 H 148 H Lactic Acid Calcium Ionized Calcium Phosphorus Magnesium Direct Bilirubin AST ALT Alkaline Phosphatase Lactate Dehydrogenase Troponin T C-Reactive Protein Total Protein Albumin Prealbumin Triglycerides Cholesterol LDL Cholesterol Direct HDL Cholesterol 25-OH Vitamin D Total PTH Intact Urine pH Urine WBC (Auto) Urine Creatinine Urine Total Protein Fluid Total Protein Vancomycin Trough Rheumatoid Factor Complement C4 Miscellaneous Test Crossmatch 09/18/16 09/18/16 09/18/16 05:33 08:31 08:31 WBC 18.0 H RBC 3.17 L Hgb 9.0 L Hct 25.7 L MCV MCH MCHC 35 H RDW 20.4 H Plt Count Lymph % (Auto) [place] % (Auto) Lymph # [place] # Baso # Seg Neutrophils % Seg Neuts % (Manual) Lymphocytes % (Manual) Monocytes % (Manual) Eosinophils % (Manual) Basophils % (Manual) Nucleated RBC % Seg Neutrophils # Seg Neutrophils # Man Lymphocytes # (Manual) Monocytes # (Manual) Eosinophils # (Manual) Basophils # (Manual) PT INR Fibrinogen dRVVT Confirm Interp Factor V Activity POC ABG pH POC ABG pCO2 POC ABG pO2 ABG pO2 ABG HCO3 ABG Base Excess ABG Hemoglobin Oxyhemoglobin Sodium Potassium Chloride Carbon Dioxide 15 L BUN 124 H Creatinine 3.8 H Glucose POC Glucose 120 H Lactic Acid Calcium 8.1 L Ionized Calcium Phosphorus Magnesium Direct Bilirubin AST ALT Alkaline Phosphatase Lactate Dehydrogenase Troponin T C-Reactive Protein Total Protein Albumin Prealbumin Triglycerides Cholesterol LDL Cholesterol Direct HDL Cholesterol 25-OH Vitamin D Total PTH Intact Urine pH Urine WBC (Auto) Urine Creatinine Urine Total Protein Fluid Total Protein Vancomycin Trough Rheumatoid Factor Complement C4 Miscellaneous Test Crossmatch 09/18/16 09/18/16 09/18/16 12:03 15:34 17:50 WBC RBC Hgb Hct MCV MCH MCHC RDW Plt Count Lymph % (Auto) [place] % (Auto) Lymph # [place] # Baso # Seg Neutrophils % Seg Neuts % (Manual) Lymphocytes % (Manual) Monocytes % (Manual) Eosinophils % (Manual) Basophils % (Manual) Nucleated RBC % Seg Neutrophils # Seg Neutrophils # Man Lymphocytes # (Manual) Monocytes # (Manual) Eosinophils # (Manual) Basophils # (Manual) PT INR Fibrinogen dRVVT Confirm Interp Factor V Activity POC ABG pH POC ABG pCO2 25.7 L POC ABG pO2 66 L ABG pO2 ABG HCO3 ABG Base Excess ABG Hemoglobin Oxyhemoglobin Sodium Potassium Chloride Carbon Dioxide BUN Creatinine Glucose POC Glucose 156 H 220 H Lactic Acid Calcium Ionized Calcium Phosphorus Magnesium Direct Bilirubin AST ALT Alkaline Phosphatase Lactate Dehydrogenase Troponin T C-Reactive Protein Total Protein Albumin Prealbumin Triglycerides Cholesterol LDL Cholesterol Direct HDL Cholesterol 25-OH Vitamin D Total PTH Intact Urine pH Urine WBC (Auto) Urine Creatinine Urine Total Protein Fluid Total Protein Vancomycin Trough Rheumatoid Factor Complement C4 Miscellaneous Test Crossmatch 09/19/16 09/19/16 09/19/16 06:21 09:50 09:50 WBC 17.1 H RBC 3.49 L Hgb 9.0 L Hct 28.1 L MCV MCH 26 L MCHC RDW 20.8 H Plt Count Lymph % (Auto) 11.5 L [place] % (Auto) 7.5 H Lymph # [place] # 1.3 H Baso # Seg Neutrophils % 79.8 H Seg Neuts % (Manual) Lymphocytes % (Manual) Monocytes % (Manual) Eosinophils % (Manual) Basophils % (Manual) Nucleated RBC % Seg Neutrophils # 13.7 H Seg Neutrophils # Man Lymphocytes # (Manual) Monocytes # (Manual) Eosinophils # (Manual) Basophils # (Manual) PT INR Fibrinogen dRVVT Confirm Interp Factor V Activity POC ABG pH POC ABG pCO2 POC ABG pO2 ABG pO2 ABG HCO3 ABG Base Excess ABG Hemoglobin Oxyhemoglobin Sodium Potassium Chloride 108.6 H Carbon Dioxide 15 L BUN 125 H Creatinine 4.1 H Glucose 124 H POC Glucose 119 H Lactic Acid Calcium Ionized Calcium Phosphorus Magnesium Direct Bilirubin AST ALT Alkaline Phosphatase Lactate Dehydrogenase Troponin T C-Reactive Protein Total Protein Albumin Prealbumin Triglycerides Cholesterol LDL Cholesterol Direct HDL Cholesterol 25-OH Vitamin D Total PTH Intact Urine pH Urine WBC (Auto) Urine Creatinine Urine Total Protein Fluid Total Protein Vancomycin Trough Rheumatoid Factor Complement C4 Miscellaneous Test Crossmatch 09/19/16 09/19/16 09/19/16 11:25 17:53 23:36 WBC RBC Hgb Hct MCV MCH MCHC RDW Plt Count Lymph % (Auto) [place] % (Auto) Lymph # [place] # Baso # Seg Neutrophils % Seg Neuts % (Manual) Lymphocytes % (Manual) Monocytes % (Manual) Eosinophils % (Manual) Basophils % (Manual) Nucleated RBC % Seg Neutrophils # Seg Neutrophils # Man Lymphocytes # (Manual) Monocytes # (Manual) Eosinophils # (Manual) Basophils # (Manual) PT INR Fibrinogen dRVVT Confirm Interp Factor V Activity POC ABG pH POC ABG pCO2 POC ABG pO2 ABG pO2 ABG HCO3 ABG Base Excess ABG Hemoglobin Oxyhemoglobin Sodium Potassium Chloride Carbon Dioxide BUN Creatinine Glucose POC Glucose 160 H 245 H 121 H Lactic Acid Calcium Ionized Calcium Phosphorus Magnesium Direct Bilirubin AST ALT Alkaline Phosphatase Lactate Dehydrogenase Troponin T C-Reactive Protein Total Protein Albumin Prealbumin Triglycerides Cholesterol LDL Cholesterol Direct HDL Cholesterol 25-OH Vitamin D Total PTH Intact Urine pH Urine WBC (Auto) Urine Creatinine Urine Total Protein Fluid Total Protein Vancomycin Trough Rheumatoid Factor Complement C4 Miscellaneous Test Crossmatch 09/20/16 09/20/16 09/20/16 04:10 04:10 04:10 WBC 17.0 H RBC 3.21 L Hgb 8.2 L Hct 25.5 L MCV MCH 26 L MCHC RDW 20.9 H Plt Count Lymph % (Auto) [place] % (Auto) Lymph # [place] # Baso # Seg Neutrophils % Seg Neuts % (Manual) Lymphocytes % (Manual) Monocytes % (Manual) Eosinophils % (Manual) Basophils % (Manual) Nucleated RBC % Seg Neutrophils # Seg Neutrophils # Man Lymphocytes # (Manual) Monocytes # (Manual) Eosinophils # (Manual) Basophils # (Manual) PT INR Fibrinogen dRVVT Confirm Interp Factor V Activity POC ABG pH POC ABG pCO2 POC ABG pO2 ABG pO2 ABG HCO3 ABG Base Excess ABG Hemoglobin Oxyhemoglobin Sodium Potassium Chloride 111.0 H Carbon Dioxide 16 L BUN 129 H Creatinine 3.7 H Glucose 115 H POC Glucose Lactic Acid Calcium 8.2 L Ionized Calcium Phosphorus Magnesium Direct Bilirubin AST ALT Alkaline Phosphatase Lactate Dehydrogenase Troponin T C-Reactive Protein Total Protein Albumin Prealbumin Triglycerides 243 H Cholesterol LDL Cholesterol Direct HDL Cholesterol 25-OH Vitamin D Total PTH Intact Urine pH Urine WBC (Auto) Urine Creatinine Urine Total Protein Fluid Total Protein Vancomycin Trough Rheumatoid Factor Complement C4 Miscellaneous Test Crossmatch 09/20/16 09/20/16 09/20/16 05:40 11:52 16:50 WBC RBC Hgb Hct MCV MCH MCHC RDW Plt Count Lymph % (Auto) [place] % (Auto) Lymph # [place] # Baso # Seg Neutrophils % Seg Neuts % (Manual) Lymphocytes % (Manual) Monocytes % (Manual) Eosinophils % (Manual) Basophils % (Manual) Nucleated RBC % Seg Neutrophils # Seg Neutrophils # Man Lymphocytes # (Manual) Monocytes # (Manual) Eosinophils # (Manual) Basophils # (Manual) PT INR Fibrinogen dRVVT Confirm Interp Factor V Activity POC ABG pH POC ABG pCO2 POC ABG pO2 ABG pO2 ABG HCO3 ABG Base Excess ABG Hemoglobin Oxyhemoglobin Sodium Potassium Chloride Carbon Dioxide BUN Creatinine Glucose POC Glucose 131 H 183 H 236 H Lactic Acid Calcium Ionized Calcium Phosphorus Magnesium Direct Bilirubin AST ALT Alkaline Phosphatase Lactate Dehydrogenase Troponin T C-Reactive Protein Total Protein Albumin Prealbumin Triglycerides Cholesterol LDL Cholesterol Direct HDL Cholesterol 25-OH Vitamin D Total PTH Intact Urine pH Urine WBC (Auto) Urine Creatinine Urine Total Protein Fluid Total Protein Vancomycin Trough Rheumatoid Factor Complement C4 Miscellaneous Test Crossmatch 09/20/16 09/21/16 09/21/16 23:51 03:30 04:44 WBC RBC Hgb Hct MCV MCH MCHC RDW Plt Count Lymph % (Auto) [place] % (Auto) Lymph # [place] # Baso # Seg Neutrophils % Seg Neuts % (Manual) Lymphocytes % (Manual) Monocytes % (Manual) Eosinophils % (Manual) Basophils % (Manual) Nucleated RBC % Seg Neutrophils # Seg Neutrophils # Man Lymphocytes # (Manual) Monocytes # (Manual) Eosinophils # (Manual) Basophils # (Manual) PT INR Fibrinogen dRVVT Confirm Interp Factor V Activity POC ABG pH POC ABG pCO2 POC ABG pO2 ABG pO2 ABG HCO3 ABG Base Excess ABG Hemoglobin Oxyhemoglobin Sodium Potassium Chloride Carbon Dioxide BUN Creatinine Glucose POC Glucose 114 H 141 H Lactic Acid Calcium Ionized Calcium Phosphorus Magnesium 2.70 H Direct Bilirubin AST ALT Alkaline Phosphatase Lactate Dehydrogenase Troponin T C-Reactive Protein Total Protein Albumin Prealbumin Triglycerides Cholesterol LDL Cholesterol Direct HDL Cholesterol 25-OH Vitamin D Total PTH Intact Urine pH Urine WBC (Auto) Urine Creatinine Urine Total Protein Fluid Total Protein Vancomycin Trough Rheumatoid Factor Complement C4 Miscellaneous Test Crossmatch 09/21/16 09/21/16 09/21/16 07:45 07:45 10:01 WBC 13.8 H RBC 2.94 L Hgb 7.5 L Hct 23.5 L MCV MCH 26 L MCHC RDW 21.2 H Plt Count Lymph % (Auto) 6.9 L [place] % (Auto) 9.4 H Lymph # 0.9 L [place] # 1.3 H Baso # Seg Neutrophils % 83.2 H Seg Neuts % (Manual) Lymphocytes % (Manual) Monocytes % (Manual) Eosinophils % (Manual) Basophils % (Manual) Nucleated RBC % Seg Neutrophils # 11.5 H Seg Neutrophils # Man Lymphocytes # (Manual) Monocytes # (Manual) Eosinophils # (Manual) Basophils # (Manual) PT INR Fibrinogen dRVVT Confirm Interp Factor V Activity POC ABG pH 7.308 L POC ABG pCO2 31.9 L POC ABG pO2 148 H ABG pO2 ABG HCO3 ABG Base Excess ABG Hemoglobin Oxyhemoglobin Sodium 147 H Potassium Chloride 114.2 H Carbon Dioxide 15 L BUN 120 H Creatinine 3.9 H Glucose 156 H POC Glucose Lactic Acid Calcium 8.2 L Ionized Calcium Phosphorus Magnesium Direct Bilirubin AST ALT Alkaline Phosphatase Lactate Dehydrogenase Troponin T C-Reactive Protein Total Protein Albumin Prealbumin Triglycerides Cholesterol LDL Cholesterol Direct HDL Cholesterol 25-OH Vitamin D Total PTH Intact Urine pH Urine WBC (Auto) Urine Creatinine Urine Total Protein Fluid Total Protein Vancomycin Trough Rheumatoid Factor Complement C4 Miscellaneous Test Crossmatch 09/21/16 09/21/16 09/21/16 12:00 12:03 13:00 WBC RBC Hgb Hct MCV MCH MCHC RDW Plt Count Lymph % (Auto) [place] % (Auto) Lymph # [place] # Baso # Seg Neutrophils % Seg Neuts % (Manual) Lymphocytes % (Manual) Monocytes % (Manual) Eosinophils % (Manual) Basophils % (Manual) Nucleated RBC % Seg Neutrophils # Seg Neutrophils # Man Lymphocytes # (Manual) Monocytes # (Manual) Eosinophils # (Manual) Basophils # (Manual) PT INR Fibrinogen dRVVT Confirm Interp Factor V Activity POC ABG pH POC ABG pCO2 POC ABG pO2 ABG pO2 ABG HCO3 ABG Base Excess ABG Hemoglobin Oxyhemoglobin Sodium Potassium Chloride Carbon Dioxide BUN Creatinine Glucose POC Glucose 163 H Lactic Acid Calcium Ionized Calcium Phosphorus Magnesium Direct Bilirubin AST ALT Alkaline Phosphatase Lactate Dehydrogenase Troponin T C-Reactive Protein Total Protein Albumin Prealbumin Triglycerides Cholesterol LDL Cholesterol Direct HDL Cholesterol 25-OH Vitamin D Total PTH Intact Urine pH Urine WBC (Auto) Urine Creatinine 54.8 H Urine Total Protein Fluid Total Protein Vancomycin Trough 2.3 L Rheumatoid Factor Complement C4 Miscellaneous Test Crossmatch 09/21/16 09/21/16 09/22/16 16:51 23:17 06:27 WBC RBC Hgb Hct MCV MCH MCHC RDW Plt Count Lymph % (Auto) [place] % (Auto) Lymph # [place] # Baso # Seg Neutrophils % Seg Neuts % (Manual) Lymphocytes % (Manual) Monocytes % (Manual) Eosinophils % (Manual) Basophils % (Manual) Nucleated RBC % Seg Neutrophils # Seg Neutrophils # Man Lymphocytes # (Manual) Monocytes # (Manual) Eosinophils # (Manual) Basophils # (Manual) PT INR Fibrinogen dRVVT Confirm Interp Factor V Activity POC ABG pH POC ABG pCO2 POC ABG pO2 ABG pO2 ABG HCO3 ABG Base Excess ABG Hemoglobin Oxyhemoglobin Sodium Potassium Chloride Carbon Dioxide BUN Creatinine Glucose POC Glucose 206 H 114 H 115 H Lactic Acid Calcium Ionized Calcium Phosphorus Magnesium Direct Bilirubin AST ALT Alkaline Phosphatase Lactate Dehydrogenase Troponin T C-Reactive Protein Total Protein Albumin Prealbumin Triglycerides Cholesterol LDL Cholesterol Direct HDL Cholesterol 25-OH Vitamin D Total PTH Intact Urine pH Urine WBC (Auto) Urine Creatinine Urine Total Protein Fluid Total Protein Vancomycin Trough Rheumatoid Factor Complement C4 Miscellaneous Test Crossmatch 09/22/16 09/22/16 09/22/16 07:50 07:50 12:00 WBC 17.8 H RBC 3.04 L Hgb 8.0 L Hct 24.7 L MCV MCH 26 L MCHC RDW 21.6 H Plt Count Lymph % (Auto) [place] % (Auto) Lymph # [place] # Baso # Seg Neutrophils % Seg Neuts % (Manual) Lymphocytes % (Manual) Monocytes % (Manual) Eosinophils % (Manual) Basophils % (Manual) Nucleated RBC % Seg Neutrophils # Seg Neutrophils # Man Lymphocytes # (Manual) Monocytes # (Manual) Eosinophils # (Manual) Basophils # (Manual) PT INR Fibrinogen dRVVT Confirm Interp Factor V Activity POC ABG pH POC ABG pCO2 POC ABG pO2 ABG pO2 ABG HCO3 ABG Base Excess ABG Hemoglobin Oxyhemoglobin Sodium 150 H Potassium Chloride 118.2 H Carbon Dioxide 14 L BUN 111 H Creatinine 3.7 H Glucose 157 H POC Glucose 183 H Lactic Acid Calcium Ionized Calcium Phosphorus Magnesium Direct Bilirubin AST ALT Alkaline Phosphatase Lactate Dehydrogenase Troponin T C-Reactive Protein Total Protein Albumin Prealbumin Triglycerides Cholesterol LDL Cholesterol Direct HDL Cholesterol 25-OH Vitamin D Total PTH Intact Urine pH Urine WBC (Auto) Urine Creatinine Urine Total Protein Fluid Total Protein Vancomycin Trough Rheumatoid Factor Complement C4 Miscellaneous Test Crossmatch 09/22/16 09/22/16 09/23/16 17:29 23:10 05:00 WBC 19.2 H RBC 3.13 L Hgb 8.0 L Hct 25.2 L MCV MCH 26 L MCHC RDW 22.1 H Plt Count Lymph % (Auto) [place] % (Auto) Lymph # [place] # Baso # Seg Neutrophils % Seg Neuts % (Manual) 92.0 H Lymphocytes % (Manual) 3.0 L Monocytes % (Manual) Eosinophils % (Manual) Basophils % (Manual) Nucleated RBC % Seg Neutrophils # Seg Neutrophils # Man 17.7 H Lymphocytes # (Manual) 0.6 L Monocytes # (Manual) Eosinophils # (Manual) Basophils # (Manual) PT INR Fibrinogen dRVVT Confirm Interp Factor V Activity POC ABG pH POC ABG pCO2 POC ABG pO2 ABG pO2 ABG HCO3 ABG Base Excess ABG Hemoglobin Oxyhemoglobin Sodium Potassium Chloride Carbon Dioxide BUN Creatinine Glucose POC Glucose 197 H 169 H Lactic Acid Calcium Ionized Calcium Phosphorus Magnesium Direct Bilirubin AST ALT Alkaline Phosphatase Lactate Dehydrogenase Troponin T C-Reactive Protein Total Protein Albumin Prealbumin Triglycerides Cholesterol LDL Cholesterol Direct HDL Cholesterol 25-OH Vitamin D Total PTH Intact Urine pH Urine WBC (Auto) Urine Creatinine Urine Total Protein Fluid Total Protein Vancomycin Trough Rheumatoid Factor Complement C4 Miscellaneous Test Crossmatch 09/23/16 09/23/16 09/23/16 05:00 05:00 05:10 WBC RBC Hgb Hct MCV MCH MCHC RDW Plt Count Lymph % (Auto) [place] % (Auto) Lymph # [place] # Baso # Seg Neutrophils % Seg Neuts % (Manual) Lymphocytes % (Manual) Monocytes % (Manual) Eosinophils % (Manual) Basophils % (Manual) Nucleated RBC % Seg Neutrophils # Seg Neutrophils # Man Lymphocytes # (Manual) Monocytes # (Manual) Eosinophils # (Manual) Basophils # (Manual) PT INR Fibrinogen dRVVT Confirm Interp Factor V Activity POC ABG pH POC ABG pCO2 POC ABG pO2 ABG pO2 ABG HCO3 ABG Base Excess ABG Hemoglobin Oxyhemoglobin Sodium 147 H Potassium 3.2 L Chloride 115.7 H Carbon Dioxide 13 L BUN 111 H Creatinine 3.8 H Glucose 194 H POC Glucose 188 H Lactic Acid Calcium 7.3 L D Ionized Calcium Phosphorus Magnesium Direct Bilirubin AST ALT Alkaline Phosphatase Lactate Dehydrogenase Troponin T C-Reactive Protein 3.20 H Total Protein Albumin Prealbumin Triglycerides Cholesterol LDL Cholesterol Direct HDL Cholesterol 25-OH Vitamin D Total PTH Intact Urine pH Urine WBC (Auto) Urine Creatinine Urine Total Protein Fluid Total Protein Vancomycin Trough Rheumatoid Factor Complement C4 Miscellaneous Test Crossmatch 09/23/16 09/23/16 09/23/16 11:37 12:29 18:01 WBC RBC Hgb Hct MCV MCH MCHC RDW Plt Count Lymph % (Auto) [place] % (Auto) Lymph # [place] # Baso # Seg Neutrophils % Seg Neuts % (Manual) Lymphocytes % (Manual) Monocytes % (Manual) Eosinophils % (Manual) Basophils % (Manual) Nucleated RBC % Seg Neutrophils # Seg Neutrophils # Man Lymphocytes # (Manual) Monocytes # (Manual) Eosinophils # (Manual) Basophils # (Manual) PT INR Fibrinogen dRVVT Confirm Interp Factor V Activity POC ABG pH POC ABG pCO2 18.9 L POC ABG pO2 143 H ABG pO2 ABG HCO3 ABG Base Excess ABG Hemoglobin Oxyhemoglobin Sodium Potassium Chloride Carbon Dioxide BUN Creatinine Glucose POC Glucose 153 H 108 H Lactic Acid Calcium Ionized Calcium Phosphorus Magnesium Direct Bilirubin AST ALT Alkaline Phosphatase Lactate Dehydrogenase Troponin T C-Reactive Protein Total Protein Albumin Prealbumin Triglycerides Cholesterol LDL Cholesterol Direct HDL Cholesterol 25-OH Vitamin D Total PTH Intact Urine pH Urine WBC (Auto) Urine Creatinine Urine Total Protein Fluid Total Protein Vancomycin Trough Rheumatoid Factor Complement C4 Miscellaneous Test Crossmatch 09/23/16 09/23/16 09/24/16 21:19 23:43 05:16 WBC RBC Hgb Hct MCV MCH MCHC RDW Plt Count Lymph % (Auto) [place] % (Auto) Lymph # [place] # Baso # Seg Neutrophils % Seg Neuts % (Manual) Lymphocytes % (Manual) Monocytes % (Manual) Eosinophils % (Manual) Basophils % (Manual) Nucleated RBC % Seg Neutrophils # Seg Neutrophils # Man Lymphocytes # (Manual) Monocytes # (Manual) Eosinophils # (Manual) Basophils # (Manual) PT INR Fibrinogen dRVVT Confirm Interp Factor V Activity POC ABG pH POC ABG pCO2 17.3 L POC ABG pO2 112 H ABG pO2 ABG HCO3 ABG Base Excess ABG Hemoglobin Oxyhemoglobin Sodium Potassium Chloride Carbon Dioxide BUN Creatinine Glucose POC Glucose 143 H 164 H Lactic Acid Calcium Ionized Calcium Phosphorus Magnesium Direct Bilirubin AST ALT Alkaline Phosphatase Lactate Dehydrogenase Troponin T C-Reactive Protein Total Protein Albumin Prealbumin Triglycerides Cholesterol LDL Cholesterol Direct HDL Cholesterol 25-OH Vitamin D Total PTH Intact Urine pH Urine WBC (Auto) Urine Creatinine Urine Total Protein Fluid Total Protein Vancomycin Trough Rheumatoid Factor Complement C4 Miscellaneous Test Crossmatch 09/24/16 09/24/16 09/24/16 05:21 11:58 17:06 WBC RBC Hgb Hct MCV MCH MCHC RDW Plt Count Lymph % (Auto) [place] % (Auto) Lymph # [place] # Baso # Seg Neutrophils % Seg Neuts % (Manual) Lymphocytes % (Manual) Monocytes % (Manual) Eosinophils % (Manual) Basophils % (Manual) Nucleated RBC % Seg Neutrophils # Seg Neutrophils # Man Lymphocytes # (Manual) Monocytes # (Manual) Eosinophils # (Manual) Basophils # (Manual) PT INR Fibrinogen dRVVT Confirm Interp Factor V Activity POC ABG pH POC ABG pCO2 POC ABG pO2 ABG pO2 ABG HCO3 ABG Base Excess ABG Hemoglobin Oxyhemoglobin Sodium Potassium Chloride Carbon Dioxide 10 L BUN 103 H Creatinine 4.3 H Glucose 163 H POC Glucose 173 H 167 H Lactic Acid Calcium 6.5 L Ionized Calcium Phosphorus Magnesium Direct Bilirubin AST ALT Alkaline Phosphatase Lactate Dehydrogenase Troponin T C-Reactive Protein Total Protein Albumin Prealbumin Triglycerides Cholesterol LDL Cholesterol Direct HDL Cholesterol 25-OH Vitamin D Total PTH Intact Urine pH Urine WBC (Auto) Urine Creatinine Urine Total Protein Fluid Total Protein Vancomycin Trough Rheumatoid Factor Complement C4 Miscellaneous Test Crossmatch 09/24/16 09/24/16 09/24/16 20:15 21:02 23:48 WBC RBC Hgb Hct MCV MCH MCHC RDW Plt Count Lymph % (Auto) [place] % (Auto) Lymph # [place] # Baso # Seg Neutrophils % Seg Neuts % (Manual) Lymphocytes % (Manual) Monocytes % (Manual) Eosinophils % (Manual) Basophils % (Manual) Nucleated RBC % Seg Neutrophils # Seg Neutrophils # Man Lymphocytes # (Manual) Monocytes # (Manual) Eosinophils # (Manual) Basophils # (Manual) PT INR Fibrinogen dRVVT Confirm Interp Factor V Activity POC ABG pH 7.288 L POC ABG pCO2 30.2 L 21.5 L POC ABG pO2 32 L 39 L ABG pO2 ABG HCO3 ABG Base Excess ABG Hemoglobin Oxyhemoglobin Sodium Potassium Chloride Carbon Dioxide BUN Creatinine Glucose POC Glucose 109 H Lactic Acid Calcium Ionized Calcium Phosphorus Magnesium Direct Bilirubin AST ALT Alkaline Phosphatase Lactate Dehydrogenase Troponin T C-Reactive Protein Total Protein Albumin Prealbumin Triglycerides Cholesterol LDL Cholesterol Direct HDL Cholesterol 25-OH Vitamin D Total PTH Intact Urine pH Urine WBC (Auto) Urine Creatinine Urine Total Protein Fluid Total Protein Vancomycin Trough Rheumatoid Factor Complement C4 Miscellaneous Test Crossmatch 09/25/16 09/25/16 09/25/16 04:20 04:20 04:20 WBC RBC 2.58 L Hgb 7.0 L Hct 21.0 L MCV MCH 27 L MCHC RDW 23.8 H Plt Count Lymph % (Auto) [place] % (Auto) Lymph # [place] # Baso # Seg Neutrophils % Seg Neuts % (Manual) Lymphocytes % (Manual) 12.0 L Monocytes % (Manual) Eosinophils % (Manual) 7.0 H Basophils % (Manual) 2.0 H Nucleated RBC % Seg Neutrophils # Seg Neutrophils # Man Lymphocytes # (Manual) 0.9 L Monocytes # (Manual) Eosinophils # (Manual) 0.5 H Basophils # (Manual) PT INR Fibrinogen dRVVT Confirm Interp Factor V Activity POC ABG pH POC ABG pCO2 POC ABG pO2 ABG pO2 ABG HCO3 ABG Base Excess ABG Hemoglobin Oxyhemoglobin Sodium Potassium Chloride Carbon Dioxide 15 L BUN 72 H Creatinine 3.8 H Glucose POC Glucose Lactic Acid Calcium 6.0 L Ionized Calcium Phosphorus 4.60 H Magnesium 1.60 L Direct Bilirubin AST ALT Alkaline Phosphatase Lactate Dehydrogenase Troponin T C-Reactive Protein Total Protein Albumin Prealbumin Triglycerides Cholesterol LDL Cholesterol Direct HDL Cholesterol 25-OH Vitamin D Total PTH Intact Urine pH Urine WBC (Auto) Urine Creatinine Urine Total Protein Fluid Total Protein Vancomycin Trough Rheumatoid Factor Complement C4 Miscellaneous Test Crossmatch 09/25/16 09/25/16 09/25/16 04:57 08:02 10:30 WBC RBC Hgb Hct MCV MCH MCHC RDW Plt Count Lymph % (Auto) [place] % (Auto) Lymph # [place] # Baso # Seg Neutrophils % Seg Neuts % (Manual) Lymphocytes % (Manual) Monocytes % (Manual) Eosinophils % (Manual) Basophils % (Manual) Nucleated RBC % Seg Neutrophils # Seg Neutrophils # Man Lymphocytes # (Manual) Monocytes # (Manual) Eosinophils # (Manual) Basophils # (Manual) PT INR Fibrinogen dRVVT Confirm Interp Factor V Activity POC ABG pH POC ABG pCO2 24.7 L POC ABG pO2 152 H ABG pO2 ABG HCO3 ABG Base Excess ABG Hemoglobin Oxyhemoglobin Sodium Potassium Chloride Carbon Dioxide BUN Creatinine Glucose POC Glucose 113 H Lactic Acid Calcium Ionized Calcium Phosphorus Magnesium Direct Bilirubin AST ALT Alkaline Phosphatase Lactate Dehydrogenase Troponin T C-Reactive Protein Total Protein Albumin Prealbumin Triglycerides Cholesterol LDL Cholesterol Direct HDL Cholesterol 25-OH Vitamin D Total PTH Intact Urine pH Urine WBC (Auto) Urine Creatinine Urine Total Protein Fluid Total Protein Vancomycin Trough Rheumatoid Factor Complement C4 Miscellaneous Test Crossmatch See Detail 09/25/16 09/25/16 09/25/16 12:05 17:44 23:47 WBC RBC Hgb Hct MCV MCH MCHC RDW Plt Count Lymph % (Auto) [place] % (Auto) Lymph # [place] # Baso # Seg Neutrophils % Seg Neuts % (Manual) Lymphocytes % (Manual) Monocytes % (Manual) Eosinophils % (Manual) Basophils % (Manual) Nucleated RBC % Seg Neutrophils # Seg Neutrophils # Man Lymphocytes # (Manual) Monocytes # (Manual) Eosinophils # (Manual) Basophils # (Manual) PT INR Fibrinogen dRVVT Confirm Interp Factor V Activity POC ABG pH POC ABG pCO2 POC ABG pO2 ABG pO2 ABG HCO3 ABG Base Excess ABG Hemoglobin Oxyhemoglobin Sodium Potassium Chloride Carbon Dioxide BUN Creatinine Glucose POC Glucose 117 H 119 H 150 H Lactic Acid Calcium Ionized Calcium Phosphorus Magnesium Direct Bilirubin AST ALT Alkaline Phosphatase Lactate Dehydrogenase Troponin T C-Reactive Protein Total Protein Albumin Prealbumin Triglycerides Cholesterol LDL Cholesterol Direct HDL Cholesterol 25-OH Vitamin D Total PTH Intact Urine pH Urine WBC (Auto) Urine Creatinine Urine Total Protein Fluid Total Protein Vancomycin Trough Rheumatoid Factor Complement C4 Miscellaneous Test Crossmatch 09/26/16 09/26/16 09/26/16 04:25 04:25 04:25 WBC RBC 2.65 L Hgb 7.4 L Hct 21.6 L MCV MCH MCHC RDW 22.5 H Plt Count Lymph % (Auto) [place] % (Auto) Lymph # [place] # Baso # Seg Neutrophils % Seg Neuts % (Manual) Lymphocytes % (Manual) 6.0 L Monocytes % (Manual) Eosinophils % (Manual) 11.0 H Basophils % (Manual) Nucleated RBC % Seg Neutrophils # Seg Neutrophils # Man Lymphocytes # (Manual) 0.4 L Monocytes # (Manual) Eosinophils # (Manual) 0.6 H Basophils # (Manual) PT INR Fibrinogen dRVVT Confirm Interp Factor V Activity POC ABG pH POC ABG pCO2 POC ABG pO2 ABG pO2 ABG HCO3 ABG Base Excess ABG Hemoglobin Oxyhemoglobin Sodium Potassium Chloride 97.0 L Carbon Dioxide 19 L BUN 43 H Creatinine 2.6 H Glucose 130 H POC Glucose Lactic Acid 4.40 H* Calcium 6.7 L Ionized Calcium Phosphorus Magnesium Direct Bilirubin AST ALT Alkaline Phosphatase Lactate Dehydrogenase Troponin T C-Reactive Protein Total Protein Albumin Prealbumin Triglycerides Cholesterol LDL Cholesterol Direct HDL Cholesterol 25-OH Vitamin D Total PTH Intact Urine pH Urine WBC (Auto) Urine Creatinine Urine Total Protein Fluid Total Protein Vancomycin Trough Rheumatoid Factor Complement C4 Miscellaneous Test Crossmatch 09/26/16 09/26/16 09/26/16 05:20 11:44 12:12 WBC RBC Hgb Hct MCV MCH MCHC RDW Plt Count Lymph % (Auto) [place] % (Auto) Lymph # [place] # Baso # Seg Neutrophils % Seg Neuts % (Manual) Lymphocytes % (Manual) Monocytes % (Manual) Eosinophils % (Manual) Basophils % (Manual) Nucleated RBC % Seg Neutrophils # Seg Neutrophils # Man Lymphocytes # (Manual) Monocytes # (Manual) Eosinophils # (Manual) Basophils # (Manual) PT INR Fibrinogen dRVVT Confirm Interp Factor V Activity POC ABG pH POC ABG pCO2 27.0 L POC ABG pO2 69 L ABG pO2 ABG HCO3 ABG Base Excess ABG Hemoglobin Oxyhemoglobin Sodium Potassium Chloride Carbon Dioxide BUN Creatinine Glucose POC Glucose 121 H 128 H Lactic Acid Calcium Ionized Calcium Phosphorus Magnesium Direct Bilirubin AST ALT Alkaline Phosphatase Lactate Dehydrogenase Troponin T C-Reactive Protein Total Protein Albumin Prealbumin Triglycerides Cholesterol LDL Cholesterol Direct HDL Cholesterol 25-OH Vitamin D Total PTH Intact Urine pH Urine WBC (Auto) Urine Creatinine Urine Total Protein Fluid Total Protein Vancomycin Trough Rheumatoid Factor Complement C4 Miscellaneous Test Crossmatch 09/26/16 09/26/16 09/27/16 18:31 23:40 08:20 WBC RBC Hgb Hct MCV MCH MCHC RDW Plt Count Lymph % (Auto) [place] % (Auto) Lymph # [place] # Baso # Seg Neutrophils % Seg Neuts % (Manual) Lymphocytes % (Manual) Monocytes % (Manual) Eosinophils % (Manual) Basophils % (Manual) Nucleated RBC % Seg Neutrophils # Seg Neutrophils # Man Lymphocytes # (Manual) Monocytes # (Manual) Eosinophils # (Manual) Basophils # (Manual) PT INR Fibrinogen dRVVT Confirm Interp Factor V Activity POC ABG pH POC ABG pCO2 POC ABG pO2 ABG pO2 ABG HCO3 ABG Base Excess ABG Hemoglobin Oxyhemoglobin Sodium Potassium Chloride Carbon Dioxide BUN Creatinine Glucose POC Glucose 120 H 133 H Lactic Acid 4.10 H* Calcium Ionized Calcium Phosphorus Magnesium Direct Bilirubin AST ALT Alkaline Phosphatase Lactate Dehydrogenase Troponin T C-Reactive Protein Total Protein Albumin Prealbumin Triglycerides Cholesterol LDL Cholesterol Direct HDL Cholesterol 25-OH Vitamin D Total PTH Intact Urine pH Urine WBC (Auto) Urine Creatinine Urine Total Protein Fluid Total Protein Vancomycin Trough Rheumatoid Factor Complement C4 Miscellaneous Test Crossmatch 09/27/16 09/27/16 09/27/16 11:23 15:00 18:15 WBC RBC Hgb Hct MCV MCH MCHC RDW Plt Count Lymph % (Auto) [place] % (Auto) Lymph # [place] # Baso # Seg Neutrophils % Seg Neuts % (Manual) Lymphocytes % (Manual) Monocytes % (Manual) Eosinophils % (Manual) Basophils % (Manual) Nucleated RBC % Seg Neutrophils # Seg Neutrophils # Man Lymphocytes # (Manual) Monocytes # (Manual) Eosinophils # (Manual) Basophils # (Manual) PT INR Fibrinogen dRVVT Confirm Interp Factor V Activity POC ABG pH 7.459 H POC ABG pCO2 27.1 L POC ABG pO2 140 H ABG pO2 ABG HCO3 ABG Base Excess ABG Hemoglobin Oxyhemoglobin Sodium Potassium Chloride Carbon Dioxide BUN Creatinine Glucose POC Glucose 114 H 127 H Lactic Acid Calcium Ionized Calcium Phosphorus Magnesium Direct Bilirubin AST ALT Alkaline Phosphatase Lactate Dehydrogenase Troponin T C-Reactive Protein Total Protein Albumin Prealbumin Triglycerides Cholesterol LDL Cholesterol Direct HDL Cholesterol 25-OH Vitamin D Total PTH Intact Urine pH Urine WBC (Auto) Urine Creatinine Urine Total Protein Fluid Total Protein Vancomycin Trough Rheumatoid Factor Complement C4 Miscellaneous Test Crossmatch 09/27/16 09/27/16 09/28/16 Unknown Unknown 03:45 WBC RBC 2.49 L Hgb 6.8 L Hct 20.7 L MCV MCH 27 L MCHC RDW 22.1 H Plt Count Lymph % (Auto) [place] % (Auto) Lymph # [place] # Baso # Seg Neutrophils % Seg Neuts % (Manual) 32.0 L Lymphocytes % (Manual) 12.0 L Monocytes % (Manual) 11.0 H Eosinophils % (Manual) 10.0 H Basophils % (Manual) Nucleated RBC % Seg Neutrophils # Seg Neutrophils # Man Lymphocytes # (Manual) 1.0 L Monocytes # (Manual) 0.9 H Eosinophils # (Manual) 0.8 H Basophils # (Manual) PT INR Fibrinogen dRVVT Confirm Interp Factor V Activity POC ABG pH POC ABG pCO2 POC ABG pO2 ABG pO2 ABG HCO3 ABG Base Excess ABG Hemoglobin Oxyhemoglobin Sodium 135 L 135 L Potassium 3.5 L Chloride 93.6 L 94.4 L Carbon Dioxide 17 L 21 L BUN 45 H 28 H Creatinine 3.3 H 2.5 H Glucose 106 H POC Glucose Lactic Acid Calcium 7.3 L 7.1 L Ionized Calcium Phosphorus Magnesium Direct Bilirubin AST ALT Alkaline Phosphatase Lactate Dehydrogenase Troponin T C-Reactive Protein Total Protein Albumin Prealbumin Triglycerides Cholesterol LDL Cholesterol Direct HDL Cholesterol 25-OH Vitamin D Total PTH Intact Urine pH Urine WBC (Auto) Urine Creatinine Urine Total Protein Fluid Total Protein Vancomycin Trough Rheumatoid Factor Complement C4 Miscellaneous Test Crossmatch 09/28/16 09/28/16 09/28/16 03:45 07:25 11:58 WBC 13.3 H RBC 3.01 L Hgb 8.4 L Hct 25.0 L MCV MCH MCHC RDW 20.5 H Plt Count 128 L Lymph % (Auto) [place] % (Auto) Lymph # [place] # Baso # Seg Neutrophils % Seg Neuts % (Manual) Lymphocytes % (Manual) 7.0 L Monocytes % (Manual) Eosinophils % (Manual) 6.0 H Basophils % (Manual) Nucleated RBC % Seg Neutrophils # Seg Neutrophils # Man Lymphocytes # (Manual) 0.9 L Monocytes # (Manual) Eosinophils # (Manual) 0.8 H Basophils # (Manual) PT INR Fibrinogen dRVVT Confirm Interp Factor V Activity POC ABG pH POC ABG pCO2 POC ABG pO2 ABG pO2 ABG HCO3 ABG Base Excess ABG Hemoglobin Oxyhemoglobin Sodium Potassium Chloride Carbon Dioxide BUN Creatinine Glucose POC Glucose 121 H Lactic Acid 4.50 H* Calcium Ionized Calcium Phosphorus Magnesium Direct Bilirubin AST ALT Alkaline Phosphatase Lactate Dehydrogenase Troponin T C-Reactive Protein Total Protein Albumin Prealbumin Triglycerides Cholesterol LDL Cholesterol Direct HDL Cholesterol 25-OH Vitamin D Total PTH Intact Urine pH Urine WBC (Auto) Urine Creatinine Urine Total Protein Fluid Total Protein Vancomycin Trough Rheumatoid Factor Complement C4 Miscellaneous Test Crossmatch 09/29/16 09/29/16 09/29/16 06:45 06:45 06:45 WBC 14.9 H RBC 2.74 L Hgb 7.6 L Hct 23.2 L MCV MCH MCHC RDW 20.5 H Plt Count 81 L Lymph % (Auto) [place] % (Auto) Lymph # [place] # Baso # Seg Neutrophils % Seg Neuts % (Manual) 81.0 H Lymphocytes % (Manual) 4.0 L Monocytes % (Manual) Eosinophils % (Manual) Basophils % (Manual) Nucleated RBC % Seg Neutrophils # Seg Neutrophils # Man 12.1 H Lymphocytes # (Manual) 0.6 L Monocytes # (Manual) Eosinophils # (Manual) Basophils # (Manual) PT INR Fibrinogen dRVVT Confirm Interp Factor V Activity POC ABG pH POC ABG pCO2 POC ABG pO2 ABG pO2 ABG HCO3 ABG Base Excess ABG Hemoglobin Oxyhemoglobin Sodium 133 L Potassium 3.4 L Chloride 92.5 L Carbon Dioxide 21 L BUN 33 H Creatinine 3.0 H Glucose POC Glucose Lactic Acid Calcium 6.6 L Ionized Calcium Phosphorus Magnesium 1.40 L Direct Bilirubin 0.9 H AST ALT Alkaline Phosphatase Lactate Dehydrogenase Troponin T C-Reactive Protein Total Protein 4.3 L Albumin 1.3 L Prealbumin Triglycerides Cholesterol LDL Cholesterol Direct HDL Cholesterol 25-OH Vitamin D Total PTH Intact Urine pH Urine WBC (Auto) Urine Creatinine Urine Total Protein Fluid Total Protein Vancomycin Trough Rheumatoid Factor Complement C4 Miscellaneous Test Crossmatch 09/29/16 09/29/16 09/30/16 17:52 20:12 00:07 WBC RBC Hgb Hct MCV MCH MCHC RDW Plt Count Lymph % (Auto) [place] % (Auto) Lymph # [place] # Baso # Seg Neutrophils % Seg Neuts % (Manual) Lymphocytes % (Manual) Monocytes % (Manual) Eosinophils % (Manual) Basophils % (Manual) Nucleated RBC % Seg Neutrophils # Seg Neutrophils # Man Lymphocytes # (Manual) Monocytes # (Manual) Eosinophils # (Manual) Basophils # (Manual) PT INR Fibrinogen dRVVT Confirm Interp Factor V Activity POC ABG pH POC ABG pCO2 POC ABG pO2 ABG pO2 ABG HCO3 ABG Base Excess ABG Hemoglobin Oxyhemoglobin Sodium Potassium Chloride Carbon Dioxide BUN Creatinine Glucose POC Glucose 50 L 51 L Lactic Acid Calcium Ionized Calcium Phosphorus Magnesium Direct Bilirubin AST ALT Alkaline Phosphatase Lactate Dehydrogenase Troponin T 0.204 H* C-Reactive Protein Total Protein Albumin Prealbumin Triglycerides Cholesterol 31 L LDL Cholesterol Direct 4 L HDL Cholesterol 3 L 25-OH Vitamin D Total PTH Intact Urine pH Urine WBC (Auto) Urine Creatinine Urine Total Protein Fluid Total Protein Vancomycin Trough Rheumatoid Factor Complement C4 Miscellaneous Test Crossmatch 09/30/16 09/30/16 09/30/16 01:30 05:15 06:10 WBC RBC Hgb Hct MCV MCH MCHC RDW Plt Count Lymph % (Auto) [place] % (Auto) Lymph # [place] # Baso # Seg Neutrophils % Seg Neuts % (Manual) Lymphocytes % (Manual) Monocytes % (Manual) Eosinophils % (Manual) Basophils % (Manual) Nucleated RBC % Seg Neutrophils # Seg Neutrophils # Man Lymphocytes # (Manual) Monocytes # (Manual) Eosinophils # (Manual) Basophils # (Manual) PT INR Fibrinogen dRVVT Confirm Interp Factor V Activity POC ABG pH POC ABG pCO2 POC ABG pO2 ABG pO2 ABG HCO3 ABG Base Excess ABG Hemoglobin Oxyhemoglobin Sodium 133 L Potassium 3.2 L Chloride 93.2 L Carbon Dioxide 19 L BUN 36 H Creatinine 3.2 H Glucose 104 H POC Glucose 167 H 146 H Lactic Acid Calcium 6.4 L Ionized Calcium Phosphorus Magnesium 1.60 L Direct Bilirubin AST ALT Alkaline Phosphatase Lactate Dehydrogenase Troponin T C-Reactive Protein Total Protein Albumin Prealbumin Triglycerides Cholesterol LDL Cholesterol Direct HDL Cholesterol 25-OH Vitamin D Total PTH Intact Urine pH Urine WBC (Auto) Urine Creatinine Urine Total Protein Fluid Total Protein Vancomycin Trough Rheumatoid Factor Complement C4 Miscellaneous Test Crossmatch 09/30/16 09/30/16 09/30/16 11:26 13:39 18:38 WBC RBC Hgb Hct MCV MCH MCHC RDW Plt Count Lymph % (Auto) [place] % (Auto) Lymph # [place] # Baso # Seg Neutrophils % Seg Neuts % (Manual) Lymphocytes % (Manual) Monocytes % (Manual) Eosinophils % (Manual) Basophils % (Manual) Nucleated RBC % Seg Neutrophils # Seg Neutrophils # Man Lymphocytes # (Manual) Monocytes # (Manual) Eosinophils # (Manual) Basophils # (Manual) PT INR Fibrinogen dRVVT Confirm Interp Factor V Activity POC ABG pH 7.479 H POC ABG pCO2 29.8 L POC ABG pO2 117 H ABG pO2 ABG HCO3 ABG Base Excess ABG Hemoglobin Oxyhemoglobin Sodium Potassium Chloride Carbon Dioxide BUN Creatinine Glucose POC Glucose 140 H 122 H Lactic Acid Calcium Ionized Calcium Phosphorus Magnesium Direct Bilirubin AST ALT Alkaline Phosphatase Lactate Dehydrogenase Troponin T C-Reactive Protein Total Protein Albumin Prealbumin Triglycerides Cholesterol LDL Cholesterol Direct HDL Cholesterol 25-OH Vitamin D Total PTH Intact Urine pH Urine WBC (Auto) Urine Creatinine Urine Total Protein Fluid Total Protein Vancomycin Trough Rheumatoid Factor Complement C4 Miscellaneous Test Crossmatch 10/01/16 10/01/16 10/01/16 06:00 06:00 12:37 WBC 12.6 H RBC 2.75 L Hgb 7.3 L Hct 23.3 L MCV MCH 27 L MCHC RDW 20.6 H Plt Count 72 L Lymph % (Auto) [place] % (Auto) Lymph # [place] # Baso # Seg Neutrophils % Seg Neuts % (Manual) 31.0 L Lymphocytes % (Manual) 8.0 L Monocytes % (Manual) Eosinophils % (Manual) Basophils % (Manual) Nucleated RBC % 3.0 H Seg Neutrophils # Seg Neutrophils # Man Lymphocytes # (Manual) 1.0 L Monocytes # (Manual) Eosinophils # (Manual) Basophils # (Manual) PT INR Fibrinogen dRVVT Confirm Interp Factor V Activity POC ABG pH POC ABG pCO2 POC ABG pO2 ABG pO2 ABG HCO3 ABG Base Excess ABG Hemoglobin Oxyhemoglobin Sodium 127 L Potassium Chloride 86.8 L Carbon Dioxide 20 L BUN 42 H Creatinine 3.5 H Glucose POC Glucose 65 L Lactic Acid Calcium 7.0 L Ionized Calcium Phosphorus Magnesium Direct Bilirubin AST ALT Alkaline Phosphatase Lactate Dehydrogenase Troponin T C-Reactive Protein Total Protein Albumin Prealbumin Triglycerides Cholesterol LDL Cholesterol Direct HDL Cholesterol 25-OH Vitamin D Total PTH Intact Urine pH Urine WBC (Auto) Urine Creatinine Urine Total Protein Fluid Total Protein Vancomycin Trough Rheumatoid Factor Complement C4 Miscellaneous Test Crossmatch 10/01/16 10/01/16 10/02/16 17:39 23:32 00:59 WBC RBC Hgb Hct MCV MCH MCHC RDW Plt Count Lymph % (Auto) [place] % (Auto) Lymph # [place] # Baso # Seg Neutrophils % Seg Neuts % (Manual) Lymphocytes % (Manual) Monocytes % (Manual) Eosinophils % (Manual) Basophils % (Manual) Nucleated RBC % Seg Neutrophils # Seg Neutrophils # Man Lymphocytes # (Manual) Monocytes # (Manual) Eosinophils # (Manual) Basophils # (Manual) PT INR Fibrinogen dRVVT Confirm Interp Factor V Activity POC ABG pH POC ABG pCO2 POC ABG pO2 ABG pO2 ABG HCO3 ABG Base Excess ABG Hemoglobin Oxyhemoglobin Sodium Potassium Chloride Carbon Dioxide BUN Creatinine Glucose POC Glucose 107 H 52 L 145 H Lactic Acid Calcium Ionized Calcium Phosphorus Magnesium Direct Bilirubin AST ALT Alkaline Phosphatase Lactate Dehydrogenase Troponin T C-Reactive Protein Total Protein Albumin Prealbumin Triglycerides Cholesterol LDL Cholesterol Direct HDL Cholesterol 25-OH Vitamin D Total PTH Intact Urine pH Urine WBC (Auto) Urine Creatinine Urine Total Protein Fluid Total Protein Vancomycin Trough Rheumatoid Factor Complement C4 Miscellaneous Test Crossmatch 10/02/16 10/02/16 10/02/16 10:30 10:50 10:50 WBC 14.7 H RBC 2.76 L Hgb 7.4 L Hct 23.6 L MCV MCH 27 L MCHC RDW 20.2 H Plt Count 79 L Lymph % (Auto) [place] % (Auto) Lymph # [place] # Baso # Seg Neutrophils % Seg Neuts % (Manual) 86.0 H Lymphocytes % (Manual) 6.0 L Monocytes % (Manual) Eosinophils % (Manual) Basophils % (Manual) Nucleated RBC % Seg Neutrophils # Seg Neutrophils # Man 12.6 H Lymphocytes # (Manual) 0.9 L Monocytes # (Manual) Eosinophils # (Manual) Basophils # (Manual) PT INR Fibrinogen dRVVT Confirm Interp Factor V Activity POC ABG pH 7.486 H POC ABG pCO2 30.1 L POC ABG pO2 108 H ABG pO2 ABG HCO3 ABG Base Excess ABG Hemoglobin Oxyhemoglobin Sodium 131 L Potassium 3.4 L Chloride 89.9 L Carbon Dioxide BUN 26 H Creatinine 2.6 H Glucose POC Glucose Lactic Acid Calcium 7.0 L Ionized Calcium Phosphorus Magnesium Direct Bilirubin AST ALT Alkaline Phosphatase Lactate Dehydrogenase Troponin T C-Reactive Protein Total Protein Albumin Prealbumin Triglycerides Cholesterol LDL Cholesterol Direct HDL Cholesterol 25-OH Vitamin D Total PTH Intact Urine pH Urine WBC (Auto) Urine Creatinine Urine Total Protein Fluid Total Protein Vancomycin Trough Rheumatoid Factor Complement C4 Miscellaneous Test Crossmatch 10/02/16 10/03/16 10/03/16 23:45 00:45 05:10 WBC 12.9 H RBC 2.77 L Hgb 7.6 L Hct 23.7 L MCV MCH 27 L MCHC RDW 19.7 H Plt Count 89 L Lymph % (Auto) [place] % (Auto) Lymph # [place] # Baso # Seg Neutrophils % Seg Neuts % (Manual) Lymphocytes % (Manual) 8.0 L Monocytes % (Manual) Eosinophils % (Manual) Basophils % (Manual) Nucleated RBC % Seg Neutrophils # 11.9 H Seg Neutrophils # Man Lymphocytes # (Manual) 1.0 L Monocytes # (Manual) Eosinophils # (Manual) Basophils # (Manual) PT INR Fibrinogen dRVVT Confirm Interp Factor V Activity POC ABG pH POC ABG pCO2 POC ABG pO2 ABG pO2 ABG HCO3 ABG Base Excess ABG Hemoglobin Oxyhemoglobin Sodium Potassium Chloride Carbon Dioxide BUN Creatinine Glucose POC Glucose 55 L 199 H Lactic Acid Calcium Ionized Calcium Phosphorus Magnesium Direct Bilirubin AST ALT Alkaline Phosphatase Lactate Dehydrogenase Troponin T C-Reactive Protein Total Protein Albumin Prealbumin Triglycerides Cholesterol LDL Cholesterol Direct HDL Cholesterol 25-OH Vitamin D Total PTH Intact Urine pH Urine WBC (Auto) Urine Creatinine Urine Total Protein Fluid Total Protein Vancomycin Trough Rheumatoid Factor Complement C4 Miscellaneous Test Crossmatch 10/03/16 10/03/16 10/03/16 05:10 12:14 13:18 WBC RBC Hgb Hct MCV MCH MCHC RDW Plt Count Lymph % (Auto) [place] % (Auto) Lymph # [place] # Baso # Seg Neutrophils % Seg Neuts % (Manual) Lymphocytes % (Manual) Monocytes % (Manual) Eosinophils % (Manual) Basophils % (Manual) Nucleated RBC % Seg Neutrophils # Seg Neutrophils # Man Lymphocytes # (Manual) Monocytes # (Manual) Eosinophils # (Manual) Basophils # (Manual) PT INR Fibrinogen dRVVT Confirm Interp Factor V Activity POC ABG pH POC ABG pCO2 POC ABG pO2 ABG pO2 ABG HCO3 ABG Base Excess ABG Hemoglobin Oxyhemoglobin Sodium 129 L Potassium 3.3 L Chloride 88.8 L Carbon Dioxide 20 L BUN 29 H Creatinine 2.8 H Glucose POC Glucose 68 L 127 H Lactic Acid Calcium 7.2 L Ionized Calcium Phosphorus Magnesium Direct Bilirubin AST ALT Alkaline Phosphatase Lactate Dehydrogenase Troponin T C-Reactive Protein Total Protein Albumin Prealbumin Triglycerides Cholesterol LDL Cholesterol Direct HDL Cholesterol 25-OH Vitamin D Total PTH Intact Urine pH Urine WBC (Auto) Urine Creatinine Urine Total Protein Fluid Total Protein Vancomycin Trough Rheumatoid Factor Complement C4 Miscellaneous Test Crossmatch 10/03/16 10/03/16 10/03/16 14:42 18:21 19:09 WBC RBC Hgb Hct MCV MCH MCHC RDW Plt Count Lymph % (Auto) [place] % (Auto) Lymph # [place] # Baso # Seg Neutrophils % Seg Neuts % (Manual) Lymphocytes % (Manual) Monocytes % (Manual) Eosinophils % (Manual) Basophils % (Manual) Nucleated RBC % Seg Neutrophils # Seg Neutrophils # Man Lymphocytes # (Manual) Monocytes # (Manual) Eosinophils # (Manual) Basophils # (Manual) PT INR Fibrinogen dRVVT Confirm Interp Factor V Activity POC ABG pH 7.499 H POC ABG pCO2 28.4 L POC ABG pO2 44 L ABG pO2 ABG HCO3 ABG Base Excess ABG Hemoglobin Oxyhemoglobin Sodium Potassium Chloride Carbon Dioxide BUN Creatinine Glucose POC Glucose 64 L 205 H Lactic Acid Calcium Ionized Calcium Phosphorus Magnesium Direct Bilirubin AST ALT Alkaline Phosphatase Lactate Dehydrogenase Troponin T C-Reactive Protein Total Protein Albumin Prealbumin Triglycerides Cholesterol LDL Cholesterol Direct HDL Cholesterol 25-OH Vitamin D Total PTH Intact Urine pH Urine WBC (Auto) Urine Creatinine Urine Total Protein Fluid Total Protein Vancomycin Trough Rheumatoid Factor Complement C4 Miscellaneous Test Crossmatch 10/03/16 10/04/16 10/04/16 23:33 04:18 06:30 WBC RBC 2.54 L Hgb 7.1 L Hct 21.7 L MCV MCH MCHC RDW 19.5 H Plt Count 76 L Lymph % (Auto) [place] % (Auto) Lymph # [place] # Baso # Seg Neutrophils % Seg Neuts % (Manual) 88.0 H Lymphocytes % (Manual) 6.0 L Monocytes % (Manual) Eosinophils % (Manual) Basophils % (Manual) Nucleated RBC % Seg Neutrophils # Seg Neutrophils # Man 8.8 H Lymphocytes # (Manual) 0.6 L Monocytes # (Manual) Eosinophils # (Manual) Basophils # (Manual) PT INR Fibrinogen dRVVT Confirm Interp Factor V Activity POC ABG pH 7.461 H POC ABG pCO2 33.6 L POC ABG pO2 211 H ABG pO2 ABG HCO3 ABG Base Excess ABG Hemoglobin Oxyhemoglobin Sodium Potassium Chloride Carbon Dioxide BUN Creatinine Glucose POC Glucose 136 H Lactic Acid Calcium Ionized Calcium Phosphorus Magnesium Direct Bilirubin AST ALT Alkaline Phosphatase Lactate Dehydrogenase Troponin T C-Reactive Protein Total Protein Albumin Prealbumin Triglycerides Cholesterol LDL Cholesterol Direct HDL Cholesterol 25-OH Vitamin D Total PTH Intact Urine pH Urine WBC (Auto) Urine Creatinine Urine Total Protein Fluid Total Protein Vancomycin Trough Rheumatoid Factor Complement C4 Miscellaneous Test Crossmatch 10/04/16 10/04/16 10/04/16 06:30 11:45 17:54 WBC RBC Hgb Hct MCV MCH MCHC RDW Plt Count Lymph % (Auto) [place] % (Auto) Lymph # [place] # Baso # Seg Neutrophils % Seg Neuts % (Manual) Lymphocytes % (Manual) Monocytes % (Manual) Eosinophils % (Manual) Basophils % (Manual) Nucleated RBC % Seg Neutrophils # Seg Neutrophils # Man Lymphocytes # (Manual) Monocytes # (Manual) Eosinophils # (Manual) Basophils # (Manual) PT INR Fibrinogen dRVVT Confirm Interp Factor V Activity POC ABG pH POC ABG pCO2 POC ABG pO2 ABG pO2 ABG HCO3 ABG Base Excess ABG Hemoglobin Oxyhemoglobin Sodium 128 L Potassium Chloride 87.4 L Carbon Dioxide 20 L BUN 34 H Creatinine 2.9 H Glucose 127 H POC Glucose 158 H 160 H Lactic Acid Calcium 7.4 L Ionized Calcium Phosphorus Magnesium Direct Bilirubin AST ALT Alkaline Phosphatase Lactate Dehydrogenase Troponin T C-Reactive Protein Total Protein Albumin Prealbumin Triglycerides Cholesterol LDL Cholesterol Direct HDL Cholesterol 25-OH Vitamin D Total PTH Intact Urine pH Urine WBC (Auto) Urine Creatinine Urine Total Protein Fluid Total Protein Vancomycin Trough Rheumatoid Factor Complement C4 Miscellaneous Test Crossmatch 10/04/16 10/05/16 10/05/16 23:25 04:30 05:00 WBC RBC 2.64 L Hgb 7.5 L Hct 22.6 L MCV MCH MCHC RDW 19.3 H Plt Count 80 L Lymph % (Auto) [place] % (Auto) Lymph # [place] # Baso # Seg Neutrophils % Seg Neuts % (Manual) Lymphocytes % (Manual) 12.0 L Monocytes % (Manual) Eosinophils % (Manual) Basophils % (Manual) Nucleated RBC % Seg Neutrophils # Seg Neutrophils # Man Lymphocytes # (Manual) Monocytes # (Manual) Eosinophils # (Manual) Basophils # (Manual) PT INR Fibrinogen dRVVT Confirm Interp Factor V Activity POC ABG pH 7.475 H POC ABG pCO2 33.3 L POC ABG pO2 140 H ABG pO2 ABG HCO3 ABG Base Excess ABG Hemoglobin Oxyhemoglobin Sodium Potassium Chloride Carbon Dioxide BUN Creatinine Glucose POC Glucose 141 H Lactic Acid Calcium Ionized Calcium Phosphorus Magnesium Direct Bilirubin AST ALT Alkaline Phosphatase Lactate Dehydrogenase Troponin T C-Reactive Protein Total Protein Albumin Prealbumin Triglycerides Cholesterol LDL Cholesterol Direct HDL Cholesterol 25-OH Vitamin D Total PTH Intact Urine pH Urine WBC (Auto) Urine Creatinine Urine Total Protein Fluid Total Protein Vancomycin Trough Rheumatoid Factor Complement C4 Miscellaneous Test Crossmatch 10/05/16 10/05/16 10/05/16 05:00 05:09 12:58 WBC RBC Hgb Hct MCV MCH MCHC RDW Plt Count Lymph % (Auto) [place] % (Auto) Lymph # [place] # Baso # Seg Neutrophils % Seg Neuts % (Manual) Lymphocytes % (Manual) Monocytes % (Manual) Eosinophils % (Manual) Basophils % (Manual) Nucleated RBC % Seg Neutrophils # Seg Neutrophils # Man Lymphocytes # (Manual) Monocytes # (Manual) Eosinophils # (Manual) Basophils # (Manual) PT INR Fibrinogen dRVVT Confirm Interp Factor V Activity POC ABG pH POC ABG pCO2 POC ABG pO2 ABG pO2 ABG HCO3 ABG Base Excess ABG Hemoglobin Oxyhemoglobin Sodium 131 L Potassium Chloride 94.0 L Carbon Dioxide 20 L BUN 22 H Creatinine 2.0 H Glucose 123 H POC Glucose 166 H 179 H Lactic Acid Calcium 7.7 L Ionized Calcium Phosphorus 2.20 L D Magnesium Direct Bilirubin AST ALT Alkaline Phosphatase Lactate Dehydrogenase Troponin T C-Reactive Protein Total Protein Albumin Prealbumin Triglycerides Cholesterol LDL Cholesterol Direct HDL Cholesterol 25-OH Vitamin D Total PTH Intact Urine pH Urine WBC (Auto) Urine Creatinine Urine Total Protein Fluid Total Protein Vancomycin Trough Rheumatoid Factor Complement C4 Miscellaneous Test Crossmatch 10/05/16 10/05/16 10/05/16 15:50 18:53 23:12 WBC RBC Hgb Hct MCV MCH MCHC RDW Plt Count Lymph % (Auto) [place] % (Auto) Lymph # [place] # Baso # Seg Neutrophils % Seg Neuts % (Manual) Lymphocytes % (Manual) Monocytes % (Manual) Eosinophils % (Manual) Basophils % (Manual) Nucleated RBC % Seg Neutrophils # Seg Neutrophils # Man Lymphocytes # (Manual) Monocytes # (Manual) Eosinophils # (Manual) Basophils # (Manual) PT INR Fibrinogen dRVVT Confirm Interp Factor V Activity POC ABG pH POC ABG pCO2 POC ABG pO2 ABG pO2 ABG HCO3 ABG Base Excess ABG Hemoglobin Oxyhemoglobin Sodium Potassium Chloride Carbon Dioxide BUN Creatinine Glucose POC Glucose 150 H 164 H Lactic Acid Calcium Ionized Calcium Phosphorus Magnesium Direct Bilirubin AST ALT Alkaline Phosphatase Lactate Dehydrogenase Troponin T C-Reactive Protein Total Protein Albumin Prealbumin Triglycerides Cholesterol LDL Cholesterol Direct HDL Cholesterol 25-OH Vitamin D Total PTH Intact Urine pH Urine WBC (Auto) Urine Creatinine Urine Total Protein Fluid Total Protein Vancomycin Trough Rheumatoid Factor Complement C4 Miscellaneous Test Crossmatch See Detail 10/06/16 10/06/16 10/06/16 03:50 03:50 04:53 WBC RBC 3.00 L Hgb 8.6 L Hct 25.8 L MCV MCH MCHC RDW 17.9 H Plt Count 65 L Lymph % (Auto) [place] % (Auto) Lymph # [place] # Baso # Seg Neutrophils % Seg Neuts % (Manual) 30.0 L Lymphocytes % (Manual) 5.0 L Monocytes % (Manual) Eosinophils % (Manual) Basophils % (Manual) Nucleated RBC % Seg Neutrophils # Seg Neutrophils # Man Lymphocytes # (Manual) 0.4 L Monocytes # (Manual) Eosinophils # (Manual) Basophils # (Manual) PT INR Fibrinogen dRVVT Confirm Interp Factor V Activity POC ABG pH 7.310 L POC ABG pCO2 49.0 H POC ABG pO2 ABG pO2 ABG HCO3 ABG Base Excess ABG Hemoglobin Oxyhemoglobin Sodium 133 L Potassium Chloride 95.9 L Carbon Dioxide BUN 26 H Creatinine 2.0 H Glucose 116 H POC Glucose Lactic Acid Calcium 7.8 L Ionized Calcium Phosphorus Magnesium Direct Bilirubin AST ALT Alkaline Phosphatase Lactate Dehydrogenase Troponin T C-Reactive Protein Total Protein Albumin Prealbumin Triglycerides Cholesterol LDL Cholesterol Direct HDL Cholesterol 25-OH Vitamin D Total PTH Intact Urine pH Urine WBC (Auto) Urine Creatinine Urine Total Protein Fluid Total Protein Vancomycin Trough Rheumatoid Factor Complement C4 Miscellaneous Test Crossmatch 10/06/16 10/06/16 10/06/16 05:23 11:52 18:34 WBC RBC Hgb Hct MCV MCH MCHC RDW Plt Count Lymph % (Auto) [place] % (Auto) Lymph # [place] # Baso # Seg Neutrophils % Seg Neuts % (Manual) Lymphocytes % (Manual) Monocytes % (Manual) Eosinophils % (Manual) Basophils % (Manual) Nucleated RBC % Seg Neutrophils # Seg Neutrophils # Man Lymphocytes # (Manual) Monocytes # (Manual) Eosinophils # (Manual) Basophils # (Manual) PT INR Fibrinogen dRVVT Confirm Interp Factor V Activity POC ABG pH POC ABG pCO2 POC ABG pO2 ABG pO2 ABG HCO3 ABG Base Excess ABG Hemoglobin Oxyhemoglobin Sodium Potassium Chloride Carbon Dioxide BUN Creatinine Glucose POC Glucose 126 H 116 H 129 H Lactic Acid Calcium Ionized Calcium Phosphorus Magnesium Direct Bilirubin AST ALT Alkaline Phosphatase Lactate Dehydrogenase Troponin T C-Reactive Protein Total Protein Albumin Prealbumin Triglycerides Cholesterol LDL Cholesterol Direct HDL Cholesterol 25-OH Vitamin D Total PTH Intact Urine pH Urine WBC (Auto) Urine Creatinine Urine Total Protein Fluid Total Protein Vancomycin Trough Rheumatoid Factor Complement C4 Miscellaneous Test Crossmatch 10/07/16 10/07/16 10/07/16 03:45 05:00 10:00 WBC 17.0 H RBC 2.68 L Hgb 7.3 L Hct 25.3 L MCV MCH 27 L MCHC 29 L RDW 19.6 H Plt Count 74 L Lymph % (Auto) [place] % (Auto) Lymph # [place] # Baso # Seg Neutrophils % Seg Neuts % (Manual) Lymphocytes % (Manual) 12.0 L Monocytes % (Manual) Eosinophils % (Manual) Basophils % (Manual) Nucleated RBC % 4.0 H Seg Neutrophils # Seg Neutrophils # Man 10.7 H Lymphocytes # (Manual) Monocytes # (Manual) Eosinophils # (Manual) Basophils # (Manual) PT INR Fibrinogen dRVVT Confirm Interp Factor V Activity POC ABG pH POC ABG pCO2 POC ABG pO2 ABG pO2 ABG HCO3 ABG Base Excess ABG Hemoglobin Oxyhemoglobin Sodium 130 L Potassium 3.2 L Chloride 93.9 L Carbon Dioxide 20 L BUN 44 H Creatinine 2.7 H Glucose 129 H POC Glucose Lactic Acid Calcium 7.4 L Ionized Calcium Phosphorus Magnesium Direct Bilirubin AST ALT 6 L Alkaline Phosphatase 195 H Lactate Dehydrogenase Troponin T C-Reactive Protein Total Protein 4.9 L Albumin 1.0 L Prealbumin Triglycerides Cholesterol LDL Cholesterol Direct HDL Cholesterol 25-OH Vitamin D Total PTH Intact Urine pH Urine WBC (Auto) Urine Creatinine Urine Total Protein Fluid Total Protein Vancomycin Trough Rheumatoid Factor Complement C4 Miscellaneous Test Flexitest 1 H Crossmatch 10/07/16 10/07/16 10/07/16 10:00 11:24 18:10 WBC RBC Hgb Hct MCV MCH MCHC RDW Plt Count Lymph % (Auto) [place] % (Auto) Lymph # [place] # Baso # Seg Neutrophils % Seg Neuts % (Manual) Lymphocytes % (Manual) Monocytes % (Manual) Eosinophils % (Manual) Basophils % (Manual) Nucleated RBC % Seg Neutrophils # Seg Neutrophils # Man Lymphocytes # (Manual) Monocytes # (Manual) Eosinophils # (Manual) Basophils # (Manual) PT INR Fibrinogen dRVVT Confirm Interp Factor V Activity POC ABG pH POC ABG pCO2 POC ABG pO2 ABG pO2 ABG HCO3 ABG Base Excess ABG Hemoglobin Oxyhemoglobin Sodium Potassium Chloride Carbon Dioxide BUN Creatinine Glucose POC Glucose 116 H 130 H Lactic Acid Calcium Ionized Calcium Phosphorus Magnesium Direct Bilirubin AST ALT Alkaline Phosphatase Lactate Dehydrogenase Troponin T C-Reactive Protein 19.40 H Total Protein Albumin Prealbumin Triglycerides Cholesterol LDL Cholesterol Direct HDL Cholesterol 25-OH Vitamin D Total PTH Intact Urine pH Urine WBC (Auto) Urine Creatinine Urine Total Protein Fluid Total Protein Vancomycin Trough Rheumatoid Factor Complement C4 Miscellaneous Test Crossmatch 10/07/16 10/08/16 10/08/16 18:30 00:00 04:00 WBC RBC Hgb Hct MCV MCH MCHC RDW Plt Count Lymph % (Auto) [place] % (Auto) Lymph # [place] # Baso # Seg Neutrophils % Seg Neuts % (Manual) Lymphocytes % (Manual) Monocytes % (Manual) Eosinophils % (Manual) Basophils % (Manual) Nucleated RBC % Seg Neutrophils # Seg Neutrophils # Man Lymphocytes # (Manual) Monocytes # (Manual) Eosinophils # (Manual) Basophils # (Manual) PT INR Fibrinogen dRVVT Confirm Interp Factor V Activity POC ABG pH POC ABG pCO2 POC ABG pO2 ABG pO2 ABG HCO3 ABG Base Excess ABG Hemoglobin Oxyhemoglobin Sodium 132 L Potassium 3.3 L Chloride 93.6 L Carbon Dioxide 17 L BUN 59 H Creatinine 2.7 H Glucose 121 H POC Glucose 122 H Lactic Acid Calcium 7.6 L Ionized Calcium Phosphorus Magnesium Direct Bilirubin AST ALT Alkaline Phosphatase Lactate Dehydrogenase Troponin T C-Reactive Protein Total Protein Albumin Prealbumin Triglycerides Cholesterol LDL Cholesterol Direct HDL Cholesterol 25-OH Vitamin D Total PTH Intact Urine pH Urine WBC (Auto) > 182.0 H Urine Creatinine Urine Total Protein Fluid Total Protein Vancomycin Trough Rheumatoid Factor Complement C4 Miscellaneous Test Crossmatch 10/08/16 10/08/16 10/08/16 04:30 05:30 11:51 WBC RBC 5.15 H Hgb 14.4 H D Hct 44.5 H D MCV MCH MCHC RDW 19.5 H Plt Count 56 L Lymph % (Auto) [place] % (Auto) Lymph # [place] # Baso # Seg Neutrophils % Seg Neuts % (Manual) 24.0 L Lymphocytes % (Manual) 8.0 L Monocytes % (Manual) Eosinophils % (Manual) Basophils % (Manual) Nucleated RBC % 9.0 H Seg Neutrophils # Seg Neutrophils # Man Lymphocytes # (Manual) 0.7 L Monocytes # (Manual) Eosinophils # (Manual) Basophils # (Manual) PT INR Fibrinogen dRVVT Confirm Interp Factor V Activity POC ABG pH POC ABG pCO2 POC ABG pO2 ABG pO2 ABG HCO3 ABG Base Excess ABG Hemoglobin Oxyhemoglobin Sodium Potassium Chloride Carbon Dioxide BUN Creatinine Glucose POC Glucose 125 H 150 H Lactic Acid Calcium Ionized Calcium Phosphorus Magnesium Direct Bilirubin AST ALT Alkaline Phosphatase Lactate Dehydrogenase Troponin T C-Reactive Protein Total Protein Albumin Prealbumin Triglycerides Cholesterol LDL Cholesterol Direct HDL Cholesterol 25-OH Vitamin D Total PTH Intact Urine pH Urine WBC (Auto) Urine Creatinine Urine Total Protein Fluid Total Protein Vancomycin Trough Rheumatoid Factor Complement C4 Miscellaneous Test Crossmatch 10/08/16 10/08/16 10/08/16 12:49 17:07 19:30 WBC RBC Hgb 7.1 L D Hct 22.4 L D MCV MCH MCHC RDW Plt Count Lymph % (Auto) [place] % (Auto) Lymph # [place] # Baso # Seg Neutrophils % Seg Neuts % (Manual) Lymphocytes % (Manual) Monocytes % (Manual) Eosinophils % (Manual) Basophils % (Manual) Nucleated RBC % Seg Neutrophils # Seg Neutrophils # Man Lymphocytes # (Manual) Monocytes # (Manual) Eosinophils # (Manual) Basophils # (Manual) PT INR Fibrinogen dRVVT Confirm Interp Factor V Activity POC ABG pH POC ABG pCO2 28.2 L POC ABG pO2 111 H ABG pO2 ABG HCO3 ABG Base Excess ABG Hemoglobin Oxyhemoglobin Sodium Potassium Chloride Carbon Dioxide BUN Creatinine Glucose POC Glucose 145 H Lactic Acid Calcium Ionized Calcium Phosphorus Magnesium Direct Bilirubin AST ALT Alkaline Phosphatase Lactate Dehydrogenase Troponin T C-Reactive Protein Total Protein Albumin Prealbumin Triglycerides Cholesterol LDL Cholesterol Direct HDL Cholesterol 25-OH Vitamin D Total PTH Intact Urine pH Urine WBC (Auto) Urine Creatinine Urine Total Protein Fluid Total Protein Vancomycin Trough Rheumatoid Factor Complement C4 Miscellaneous Test Crossmatch 10/08/16 10/09/16 10/09/16 19:30 03:45 03:45 WBC 12.6 H RBC 2.36 L Hgb 6.7 L Hct 21.1 L MCV MCH MCHC RDW 19.5 H Plt Count 75 L Lymph % (Auto) [place] % (Auto) Lymph # [place] # Baso # Seg Neutrophils % Seg Neuts % (Manual) Lymphocytes % (Manual) Monocytes % (Manual) 10.0 H Eosinophils % (Manual) Basophils % (Manual) Nucleated RBC % 3.0 H Seg Neutrophils # Seg Neutrophils # Man Lymphocytes # (Manual) Monocytes # (Manual) 1.3 H Eosinophils # (Manual) Basophils # (Manual) PT 18.0 H INR 1.41 H Fibrinogen dRVVT Confirm Interp Factor V Activity POC ABG pH POC ABG pCO2 POC ABG pO2 ABG pO2 ABG HCO3 ABG Base Excess ABG Hemoglobin Oxyhemoglobin Sodium 135 L Potassium Chloride Carbon Dioxide 17 L BUN 81 H Creatinine 3.2 H Glucose 109 H POC Glucose Lactic Acid Calcium 7.4 L Ionized Calcium Phosphorus 4.60 H D Magnesium Direct Bilirubin AST ALT Alkaline Phosphatase Lactate Dehydrogenase Troponin T C-Reactive Protein Total Protein Albumin Prealbumin Triglycerides Cholesterol LDL Cholesterol Direct HDL Cholesterol 25-OH Vitamin D Total PTH Intact Urine pH Urine WBC (Auto) Urine Creatinine Urine Total Protein Fluid Total Protein Vancomycin Trough Rheumatoid Factor Complement C4 Miscellaneous Test Crossmatch 10/09/16 10/09/16 10/09/16 03:45 05:14 07:20 WBC RBC Hgb Hct MCV MCH MCHC RDW Plt Count Lymph % (Auto) [place] % (Auto) Lymph # [place] # Baso # Seg Neutrophils % Seg Neuts % (Manual) Lymphocytes % (Manual) Monocytes % (Manual) Eosinophils % (Manual) Basophils % (Manual) Nucleated RBC % Seg Neutrophils # Seg Neutrophils # Man Lymphocytes # (Manual) Monocytes # (Manual) Eosinophils # (Manual) Basophils # (Manual) PT 19.0 H INR 1.51 H Fibrinogen dRVVT Confirm Interp Factor V Activity POC ABG pH POC ABG pCO2 POC ABG pO2 ABG pO2 ABG HCO3 ABG Base Excess ABG Hemoglobin Oxyhemoglobin Sodium Potassium Chloride Carbon Dioxide BUN Creatinine Glucose POC Glucose 151 H Lactic Acid Calcium Ionized Calcium Phosphorus Magnesium Direct Bilirubin AST ALT Alkaline Phosphatase Lactate Dehydrogenase Troponin T C-Reactive Protein Total Protein Albumin Prealbumin Triglycerides Cholesterol LDL Cholesterol Direct HDL Cholesterol 25-OH Vitamin D Total PTH Intact Urine pH Urine WBC (Auto) Urine Creatinine Urine Total Protein Fluid Total Protein Vancomycin Trough Rheumatoid Factor Complement C4 Miscellaneous Test Crossmatch See Detail 10/09/16 10/09/16 10/09/16 11:46 16:20 16:43 WBC RBC Hgb 7.2 L Hct 22.2 L MCV MCH MCHC RDW Plt Count Lymph % (Auto) [place] % (Auto) Lymph # [place] # Baso # Seg Neutrophils % Seg Neuts % (Manual) Lymphocytes % (Manual) Monocytes % (Manual) Eosinophils % (Manual) Basophils % (Manual) Nucleated RBC % Seg Neutrophils # Seg Neutrophils # Man Lymphocytes # (Manual) Monocytes # (Manual) Eosinophils # (Manual) Basophils # (Manual) PT INR Fibrinogen dRVVT Confirm Interp Factor V Activity POC ABG pH POC ABG pCO2 POC ABG pO2 ABG pO2 ABG HCO3 ABG Base Excess ABG Hemoglobin Oxyhemoglobin Sodium Potassium Chloride Carbon Dioxide BUN Creatinine Glucose POC Glucose 133 H 141 H Lactic Acid Calcium Ionized Calcium Phosphorus Magnesium Direct Bilirubin AST ALT Alkaline Phosphatase Lactate Dehydrogenase Troponin T C-Reactive Protein Total Protein Albumin Prealbumin Triglycerides Cholesterol LDL Cholesterol Direct HDL Cholesterol 25-OH Vitamin D Total PTH Intact Urine pH Urine WBC (Auto) Urine Creatinine Urine Total Protein Fluid Total Protein Vancomycin Trough Rheumatoid Factor Complement C4 Miscellaneous Test Crossmatch 10/10/16 10/10/16 10/10/16 05:00 05:00 11:19 WBC 18.5 H RBC 2.19 L Hgb 6.4 L Hct 19.6 L* MCV MCH MCHC RDW 19.3 H Plt Count 93 L Lymph % (Auto) [place] % (Auto) Lymph # [place] # Baso # Seg Neutrophils % Seg Neuts % (Manual) Lymphocytes % (Manual) 10.0 L Monocytes % (Manual) Eosinophils % (Manual) Basophils % (Manual) Nucleated RBC % 4.0 H Seg Neutrophils # Seg Neutrophils # Man 11.3 H Lymphocytes # (Manual) Monocytes # (Manual) Eosinophils # (Manual) Basophils # (Manual) PT INR Fibrinogen dRVVT Confirm Interp Factor V Activity POC ABG pH POC ABG pCO2 POC ABG pO2 ABG pO2 ABG HCO3 ABG Base Excess ABG Hemoglobin Oxyhemoglobin Sodium Potassium 5.7 H D Chloride Carbon Dioxide 16 L BUN 94 H Creatinine 3.1 H Glucose 131 H POC Glucose 153 H Lactic Acid Calcium 8.2 L Ionized Calcium Phosphorus 5.10 H Magnesium 2.40 H Direct Bilirubin 0.3 H AST ALT < 5 L Alkaline Phosphatase 319 H Lactate Dehydrogenase Troponin T C-Reactive Protein Total Protein 5.1 L Albumin 1.0 L Prealbumin Triglycerides Cholesterol LDL Cholesterol Direct HDL Cholesterol 25-OH Vitamin D Total PTH Intact Urine pH Urine WBC (Auto) Urine Creatinine Urine Total Protein Fluid Total Protein Vancomycin Trough Rheumatoid Factor Complement C4 Miscellaneous Test Crossmatch 10/10/16 10/10/16 10/11/16 17:50 23:30 04:15 WBC RBC Hgb Hct MCV MCH MCHC RDW Plt Count Lymph % (Auto) [place] % (Auto) Lymph # [place] # Baso # Seg Neutrophils % Seg Neuts % (Manual) Lymphocytes % (Manual) Monocytes % (Manual) Eosinophils % (Manual) Basophils % (Manual) Nucleated RBC % Seg Neutrophils # Seg Neutrophils # Man Lymphocytes # (Manual) Monocytes # (Manual) Eosinophils # (Manual) Basophils # (Manual) PT INR Fibrinogen dRVVT Confirm Interp Factor V Activity POC ABG pH POC ABG pCO2 POC ABG pO2 ABG pO2 ABG HCO3 ABG Base Excess ABG Hemoglobin Oxyhemoglobin Sodium Potassium Chloride 96.4 L Carbon Dioxide 21 L BUN 57 H Creatinine 2.1 H Glucose 151 H POC Glucose 146 H 141 H Lactic Acid Calcium 8.3 L Ionized Calcium Phosphorus Magnesium Direct Bilirubin AST ALT Alkaline Phosphatase Lactate Dehydrogenase Troponin T C-Reactive Protein Total Protein Albumin Prealbumin Triglycerides Cholesterol LDL Cholesterol Direct HDL Cholesterol 25-OH Vitamin D Total PTH Intact Urine pH Urine WBC (Auto) Urine Creatinine Urine Total Protein Fluid Total Protein Vancomycin Trough Rheumatoid Factor Complement C4 Miscellaneous Test Crossmatch 10/11/16 10/11/16 10/11/16 04:15 04:15 05:30 WBC 28.3 H RBC 3.12 L Hgb 9.3 L Hct 28.7 L D MCV MCH MCHC RDW 17.7 H Plt Count 128 L Lymph % (Auto) [place] % (Auto) Lymph # [place] # Baso # Seg Neutrophils % Seg Neuts % (Manual) Lymphocytes % (Manual) Monocytes % (Manual) Eosinophils % (Manual) Basophils % (Manual) Nucleated RBC % Seg Neutrophils # Seg Neutrophils # Man Lymphocytes # (Manual) Monocytes # (Manual) Eosinophils # (Manual) Basophils # (Manual) PT INR Fibrinogen dRVVT Confirm Interp Factor V Activity POC ABG pH POC ABG pCO2 POC ABG pO2 ABG pO2 ABG HCO3 ABG Base Excess ABG Hemoglobin Oxyhemoglobin Sodium Potassium Chloride Carbon Dioxide BUN Creatinine Glucose POC Glucose 167 H Lactic Acid Calcium Ionized Calcium Phosphorus Magnesium Direct Bilirubin AST ALT Alkaline Phosphatase Lactate Dehydrogenase Troponin T C-Reactive Protein 15.80 H Total Protein Albumin Prealbumin Triglycerides Cholesterol LDL Cholesterol Direct HDL Cholesterol 25-OH Vitamin D Total PTH Intact Urine pH Urine WBC (Auto) Urine Creatinine Urine Total Protein Fluid Total Protein Vancomycin Trough Rheumatoid Factor Complement C4 Miscellaneous Test Crossmatch 10/11/16 10/11/16 10/11/16 11:40 15:49 23:57 WBC RBC Hgb Hct MCV MCH MCHC RDW Plt Count Lymph % (Auto) [place] % (Auto) Lymph # [place] # Baso # Seg Neutrophils % Seg Neuts % (Manual) Lymphocytes % (Manual) Monocytes % (Manual) Eosinophils % (Manual) Basophils % (Manual) Nucleated RBC % Seg Neutrophils # Seg Neutrophils # Man Lymphocytes # (Manual) Monocytes # (Manual) Eosinophils # (Manual) Basophils # (Manual) PT INR Fibrinogen dRVVT Confirm Interp Factor V Activity POC ABG pH POC ABG pCO2 POC ABG pO2 ABG pO2 ABG HCO3 ABG Base Excess ABG Hemoglobin Oxyhemoglobin Sodium Potassium Chloride Carbon Dioxide BUN Creatinine Glucose POC Glucose 139 H 168 H 161 H Lactic Acid Calcium Ionized Calcium Phosphorus Magnesium Direct Bilirubin AST ALT Alkaline Phosphatase Lactate Dehydrogenase Troponin T C-Reactive Protein Total Protein Albumin Prealbumin Triglycerides Cholesterol LDL Cholesterol Direct HDL Cholesterol 25-OH Vitamin D Total PTH Intact Urine pH Urine WBC (Auto) Urine Creatinine Urine Total Protein Fluid Total Protein Vancomycin Trough Rheumatoid Factor Complement C4 Miscellaneous Test Crossmatch 10/12/16 10/12/16 10/12/16 04:40 04:40 05:44 WBC 22.5 H RBC 2.88 L Hgb 8.8 L Hct 26.8 L MCV MCH MCHC RDW 17.8 H Plt Count Lymph % (Auto) [place] % (Auto) Lymph # [place] # Baso # Seg Neutrophils % Seg Neuts % (Manual) Lymphocytes % (Manual) Monocytes % (Manual) Eosinophils % (Manual) Basophils % (Manual) Nucleated RBC % Seg Neutrophils # Seg Neutrophils # Man Lymphocytes # (Manual) Monocytes # (Manual) Eosinophils # (Manual) Basophils # (Manual) PT INR Fibrinogen dRVVT Confirm Interp Factor V Activity POC ABG pH POC ABG pCO2 POC ABG pO2 ABG pO2 ABG HCO3 ABG Base Excess ABG Hemoglobin Oxyhemoglobin Sodium 134 L Potassium Chloride 93.0 L Carbon Dioxide BUN 74 H Creatinine 2.5 H Glucose 137 H POC Glucose 158 H Lactic Acid Calcium 8.2 L Ionized Calcium Phosphorus Magnesium Direct Bilirubin AST ALT Alkaline Phosphatase Lactate Dehydrogenase Troponin T C-Reactive Protein Total Protein Albumin Prealbumin Triglycerides Cholesterol LDL Cholesterol Direct HDL Cholesterol 25-OH Vitamin D Total PTH Intact Urine pH Urine WBC (Auto) Urine Creatinine Urine Total Protein Fluid Total Protein Vancomycin Trough Rheumatoid Factor Complement C4 Miscellaneous Test Crossmatch 10/12/16 10/12/16 10/12/16 12:27 18:18 23:46 WBC RBC Hgb Hct MCV MCH MCHC RDW Plt Count Lymph % (Auto) [place] % (Auto) Lymph # [place] # Baso # Seg Neutrophils % Seg Neuts % (Manual) Lymphocytes % (Manual) Monocytes % (Manual) Eosinophils % (Manual) Basophils % (Manual) Nucleated RBC % Seg Neutrophils # Seg Neutrophils # Man Lymphocytes # (Manual) Monocytes # (Manual) Eosinophils # (Manual) Basophils # (Manual) PT INR Fibrinogen dRVVT Confirm Interp Factor V Activity POC ABG pH POC ABG pCO2 POC ABG pO2 ABG pO2 ABG HCO3 ABG Base Excess ABG Hemoglobin Oxyhemoglobin Sodium Potassium Chloride Carbon Dioxide BUN Creatinine Glucose POC Glucose 153 H 140 H 150 H Lactic Acid Calcium Ionized Calcium Phosphorus Magnesium Direct Bilirubin AST ALT Alkaline Phosphatase Lactate Dehydrogenase Troponin T C-Reactive Protein Total Protein Albumin Prealbumin Triglycerides Cholesterol LDL Cholesterol Direct HDL Cholesterol 25-OH Vitamin D Total PTH Intact Urine pH Urine WBC (Auto) Urine Creatinine Urine Total Protein Fluid Total Protein Vancomycin Trough Rheumatoid Factor Complement C4 Miscellaneous Test Crossmatch 10/13/16 10/13/16 10/13/16 06:22 09:20 12:29 WBC RBC Hgb Hct MCV MCH MCHC RDW Plt Count Lymph % (Auto) [place] % (Auto) Lymph # [place] # Baso # Seg Neutrophils % Seg Neuts % (Manual) Lymphocytes % (Manual) Monocytes % (Manual) Eosinophils % (Manual) Basophils % (Manual) Nucleated RBC % Seg Neutrophils # Seg Neutrophils # Man Lymphocytes # (Manual) Monocytes # (Manual) Eosinophils # (Manual) Basophils # (Manual) PT INR Fibrinogen dRVVT Confirm Interp Factor V Activity POC ABG pH POC ABG pCO2 POC ABG pO2 ABG pO2 ABG HCO3 ABG Base Excess ABG Hemoglobin Oxyhemoglobin Sodium Potassium Chloride Carbon Dioxide BUN Creatinine Glucose POC Glucose 165 H 193 H Lactic Acid Calcium Ionized Calcium Phosphorus Magnesium Direct Bilirubin AST ALT Alkaline Phosphatase Lactate Dehydrogenase Troponin T C-Reactive Protein Total Protein Albumin Prealbumin Triglycerides Cholesterol LDL Cholesterol Direct HDL Cholesterol 25-OH Vitamin D Total PTH Intact Urine pH Urine WBC (Auto) Urine Creatinine Urine Total Protein Fluid Total Protein Vancomycin Trough Rheumatoid Factor Complement C4 Miscellaneous Test Flexitest 1 H Crossmatch 10/13/16 10/13/16 10/13/16 18:09 Unknown Unknown WBC 23.4 H RBC 2.83 L Hgb 8.7 L Hct 26.1 L MCV MCH MCHC RDW 18.1 H Plt Count Lymph % (Auto) [place] % (Auto) Lymph # [place] # Baso # Seg Neutrophils % Seg Neuts % (Manual) Lymphocytes % (Manual) Monocytes % (Manual) Eosinophils % (Manual) Basophils % (Manual) Nucleated RBC % Seg Neutrophils # Seg Neutrophils # Man Lymphocytes # (Manual) Monocytes # (Manual) Eosinophils # (Manual) Basophils # (Manual) PT INR Fibrinogen dRVVT Confirm Interp Factor V Activity POC ABG pH POC ABG pCO2 POC ABG pO2 ABG pO2 ABG HCO3 ABG Base Excess ABG Hemoglobin Oxyhemoglobin Sodium Potassium Chloride 95.8 L Carbon Dioxide BUN 82 H Creatinine 2.6 H Glucose 152 H POC Glucose 166 H Lactic Acid Calcium Ionized Calcium Phosphorus Magnesium Direct Bilirubin AST ALT Alkaline Phosphatase Lactate Dehydrogenase Troponin T C-Reactive Protein Total Protein Albumin Prealbumin Triglycerides Cholesterol LDL Cholesterol Direct HDL Cholesterol 25-OH Vitamin D Total PTH Intact Urine pH Urine WBC (Auto) Urine Creatinine Urine Total Protein Fluid Total Protein Vancomycin Trough Rheumatoid Factor Complement C4 Miscellaneous Test Crossmatch 10/14/16 10/14/16 10/14/16 05:38 06:35 08:10 WBC 20.7 H RBC 2.81 L Hgb 8.4 L Hct 27.2 L MCV MCH MCHC RDW 19.4 H Plt Count Lymph % (Auto) [place] % (Auto) Lymph # [place] # Baso # Seg Neutrophils % Seg Neuts % (Manual) Lymphocytes % (Manual) Monocytes % (Manual) Eosinophils % (Manual) Basophils % (Manual) Nucleated RBC % Seg Neutrophils # Seg Neutrophils # Man Lymphocytes # (Manual) Monocytes # (Manual) Eosinophils # (Manual) Basophils # (Manual) PT INR Fibrinogen dRVVT Confirm Interp Factor V Activity POC ABG pH POC ABG pCO2 POC ABG pO2 ABG pO2 ABG HCO3 ABG Base Excess ABG Hemoglobin Oxyhemoglobin Sodium Potassium Chloride Carbon Dioxide BUN 58 H Creatinine 1.9 H Glucose 169 H POC Glucose 195 H Lactic Acid Calcium Ionized Calcium Phosphorus Magnesium Direct Bilirubin AST ALT Alkaline Phosphatase Lactate Dehydrogenase Troponin T C-Reactive Protein Total Protein Albumin Prealbumin Triglycerides Cholesterol LDL Cholesterol Direct HDL Cholesterol 25-OH Vitamin D Total PTH Intact Urine pH Urine WBC (Auto) Urine Creatinine Urine Total Protein Fluid Total Protein Vancomycin Trough Rheumatoid Factor Complement C4 Miscellaneous Test Crossmatch 10/14/16 10/14/16 10/14/16 11:44 17:13 23:28 WBC RBC Hgb Hct MCV MCH MCHC RDW Plt Count Lymph % (Auto) [place] % (Auto) Lymph # [place] # Baso # Seg Neutrophils % Seg Neuts % (Manual) Lymphocytes % (Manual) Monocytes % (Manual) Eosinophils % (Manual) Basophils % (Manual) Nucleated RBC % Seg Neutrophils # Seg Neutrophils # Man Lymphocytes # (Manual) Monocytes # (Manual) Eosinophils # (Manual) Basophils # (Manual) PT INR Fibrinogen dRVVT Confirm Interp Factor V Activity POC ABG pH POC ABG pCO2 POC ABG pO2 ABG pO2 ABG HCO3 ABG Base Excess ABG Hemoglobin Oxyhemoglobin Sodium Potassium Chloride Carbon Dioxide BUN Creatinine Glucose POC Glucose 174 H 121 H 151 H Lactic Acid Calcium Ionized Calcium Phosphorus Magnesium Direct Bilirubin AST ALT Alkaline Phosphatase Lactate Dehydrogenase Troponin T C-Reactive Protein Total Protein Albumin Prealbumin Triglycerides Cholesterol LDL Cholesterol Direct HDL Cholesterol 25-OH Vitamin D Total PTH Intact Urine pH Urine WBC (Auto) Urine Creatinine Urine Total Protein Fluid Total Protein Vancomycin Trough Rheumatoid Factor Complement C4 Miscellaneous Test Crossmatch 10/15/16 10/15/16 10/15/16 05:06 12:26 17:48 WBC RBC Hgb Hct MCV MCH MCHC RDW Plt Count Lymph % (Auto) [place] % (Auto) Lymph # [place] # Baso # Seg Neutrophils % Seg Neuts % (Manual) Lymphocytes % (Manual) Monocytes % (Manual) Eosinophils % (Manual) Basophils % (Manual) Nucleated RBC % Seg Neutrophils # Seg Neutrophils # Man Lymphocytes # (Manual) Monocytes # (Manual) Eosinophils # (Manual) Basophils # (Manual) PT INR Fibrinogen dRVVT Confirm Interp Factor V Activity POC ABG pH POC ABG pCO2 POC ABG pO2 ABG pO2 ABG HCO3 ABG Base Excess ABG Hemoglobin Oxyhemoglobin Sodium Potassium Chloride Carbon Dioxide BUN Creatinine Glucose POC Glucose 151 H 149 H 153 H Lactic Acid Calcium Ionized Calcium Phosphorus Magnesium Direct Bilirubin AST ALT Alkaline Phosphatase Lactate Dehydrogenase Troponin T C-Reactive Protein Total Protein Albumin Prealbumin Triglycerides Cholesterol LDL Cholesterol Direct HDL Cholesterol 25-OH Vitamin D Total PTH Intact Urine pH Urine WBC (Auto) Urine Creatinine Urine Total Protein Fluid Total Protein Vancomycin Trough Rheumatoid Factor Complement C4 Miscellaneous Test Crossmatch 10/15/16 10/15/16 10/16/16 Unknown Unknown 00:02 WBC 23.4 H RBC 2.78 L Hgb 8.5 L Hct 25.7 L MCV MCH MCHC RDW 18.7 H Plt Count Lymph % (Auto) [place] % (Auto) Lymph # [place] # Baso # Seg Neutrophils % Seg Neuts % (Manual) Lymphocytes % (Manual) Monocytes % (Manual) Eosinophils % (Manual) Basophils % (Manual) Nucleated RBC % Seg Neutrophils # Seg Neutrophils # Man Lymphocytes # (Manual) Monocytes # (Manual) Eosinophils # (Manual) Basophils # (Manual) PT INR Fibrinogen dRVVT Confirm Interp Factor V Activity POC ABG pH POC ABG pCO2 POC ABG pO2 ABG pO2 ABG HCO3 ABG Base Excess ABG Hemoglobin Oxyhemoglobin Sodium Potassium Chloride Carbon Dioxide BUN 73 H Creatinine 2.3 H Glucose 120 H POC Glucose 137 H Lactic Acid Calcium Ionized Calcium Phosphorus Magnesium Direct Bilirubin AST ALT Alkaline Phosphatase Lactate Dehydrogenase Troponin T C-Reactive Protein Total Protein Albumin Prealbumin Triglycerides Cholesterol LDL Cholesterol Direct HDL Cholesterol 25-OH Vitamin D Total PTH Intact Urine pH Urine WBC (Auto) Urine Creatinine Urine Total Protein Fluid Total Protein Vancomycin Trough Rheumatoid Factor Complement C4 Miscellaneous Test Crossmatch 10/16/16 10/16/16 10/16/16 05:44 06:25 06:25 WBC 22.5 H RBC 2.76 L Hgb 8.3 L Hct 25.2 L MCV MCH MCHC RDW 18.3 H Plt Count Lymph % (Auto) [place] % (Auto) Lymph # [place] # Baso # Seg Neutrophils % Seg Neuts % (Manual) Lymphocytes % (Manual) Monocytes % (Manual) Eosinophils % (Manual) Basophils % (Manual) Nucleated RBC % Seg Neutrophils # Seg Neutrophils # Man Lymphocytes # (Manual) Monocytes # (Manual) Eosinophils # (Manual) Basophils # (Manual) PT INR Fibrinogen dRVVT Confirm Interp Factor V Activity POC ABG pH POC ABG pCO2 POC ABG pO2 ABG pO2 ABG HCO3 ABG Base Excess ABG Hemoglobin Oxyhemoglobin Sodium Potassium Chloride Carbon Dioxide BUN 92 H Creatinine 3.0 H Glucose 138 H POC Glucose 110 H Lactic Acid Calcium Ionized Calcium Phosphorus Magnesium Direct Bilirubin AST ALT Alkaline Phosphatase Lactate Dehydrogenase Troponin T C-Reactive Protein Total Protein Albumin Prealbumin Triglycerides Cholesterol LDL Cholesterol Direct HDL Cholesterol 25-OH Vitamin D Total PTH Intact Urine pH Urine WBC (Auto) Urine Creatinine Urine Total Protein Fluid Total Protein Vancomycin Trough Rheumatoid Factor Complement C4 Miscellaneous Test Crossmatch 10/16/16 10/16/16 10/16/16 11:27 11:48 17:36 WBC RBC Hgb Hct MCV MCH MCHC RDW Plt Count Lymph % (Auto) [place] % (Auto) Lymph # [place] # Baso # Seg Neutrophils % Seg Neuts % (Manual) Lymphocytes % (Manual) Monocytes % (Manual) Eosinophils % (Manual) Basophils % (Manual) Nucleated RBC % Seg Neutrophils # Seg Neutrophils # Man Lymphocytes # (Manual) Monocytes # (Manual) Eosinophils # (Manual) Basophils # (Manual) PT INR Fibrinogen dRVVT Confirm Interp Factor V Activity POC ABG pH 7.582 H POC ABG pCO2 27.4 L POC ABG pO2 110 H ABG pO2 ABG HCO3 ABG Base Excess ABG Hemoglobin Oxyhemoglobin Sodium Potassium Chloride Carbon Dioxide BUN Creatinine Glucose POC Glucose 121 H 133 H Lactic Acid Calcium Ionized Calcium Phosphorus Magnesium Direct Bilirubin AST ALT Alkaline Phosphatase Lactate Dehydrogenase Troponin T C-Reactive Protein Total Protein Albumin Prealbumin Triglycerides Cholesterol LDL Cholesterol Direct HDL Cholesterol 25-OH Vitamin D Total PTH Intact Urine pH Urine WBC (Auto) Urine Creatinine Urine Total Protein Fluid Total Protein Vancomycin Trough Rheumatoid Factor Complement C4 Miscellaneous Test Crossmatch 10/16/16 10/17/16 10/17/16 20:48 04:24 04:24 WBC 21.4 H RBC 2.72 L Hgb 8.0 L Hct 25.2 L MCV MCH MCHC RDW 18.0 H Plt Count Lymph % (Auto) [place] % (Auto) Lymph # [place] # Baso # Seg Neutrophils % Seg Neuts % (Manual) Lymphocytes % (Manual) Monocytes % (Manual) Eosinophils % (Manual) Basophils % (Manual) Nucleated RBC % Seg Neutrophils # Seg Neutrophils # Man Lymphocytes # (Manual) Monocytes # (Manual) Eosinophils # (Manual) Basophils # (Manual) PT INR Fibrinogen dRVVT Confirm Interp Factor V Activity POC ABG pH 7.561 H POC ABG pCO2 24.4 L POC ABG pO2 77 L ABG pO2 ABG HCO3 ABG Base Excess ABG Hemoglobin Oxyhemoglobin Sodium 148 H Potassium Chloride Carbon Dioxide BUN 104 H Creatinine 3.0 H Glucose 149 H POC Glucose Lactic Acid Calcium Ionized Calcium Phosphorus Magnesium Direct Bilirubin AST ALT Alkaline Phosphatase 138 H Lactate Dehydrogenase Troponin T C-Reactive Protein Total Protein 6.2 L Albumin 1.5 L Prealbumin Triglycerides Cholesterol LDL Cholesterol Direct HDL Cholesterol 25-OH Vitamin D Total PTH Intact Urine pH Urine WBC (Auto) Urine Creatinine Urine Total Protein Fluid Total Protein Vancomycin Trough Rheumatoid Factor Complement C4 Miscellaneous Test Crossmatch 10/17/16 10/17/16 10/17/16 06:02 12:17 17:14 WBC RBC Hgb Hct MCV MCH MCHC RDW Plt Count Lymph % (Auto) [place] % (Auto) Lymph # [place] # Baso # Seg Neutrophils % Seg Neuts % (Manual) Lymphocytes % (Manual) Monocytes % (Manual) Eosinophils % (Manual) Basophils % (Manual) Nucleated RBC % Seg Neutrophils # Seg Neutrophils # Man Lymphocytes # (Manual) Monocytes # (Manual) Eosinophils # (Manual) Basophils # (Manual) PT INR Fibrinogen dRVVT Confirm Interp Factor V Activity POC ABG pH POC ABG pCO2 POC ABG pO2 ABG pO2 ABG HCO3 ABG Base Excess ABG Hemoglobin Oxyhemoglobin Sodium Potassium Chloride Carbon Dioxide BUN Creatinine Glucose POC Glucose 170 H 167 H 126 H Lactic Acid Calcium Ionized Calcium Phosphorus Magnesium Direct Bilirubin AST ALT Alkaline Phosphatase Lactate Dehydrogenase Troponin T C-Reactive Protein Total Protein Albumin Prealbumin Triglycerides Cholesterol LDL Cholesterol Direct HDL Cholesterol 25-OH Vitamin D Total PTH Intact Urine pH Urine WBC (Auto) Urine Creatinine Urine Total Protein Fluid Total Protein Vancomycin Trough Rheumatoid Factor Complement C4 Miscellaneous Test Crossmatch 10/17/16 10/18/16 10/18/16 23:17 04:00 04:00 WBC 20.7 H RBC 2.47 L Hgb 7.4 L Hct 22.9 L MCV MCH MCHC RDW 17.5 H Plt Count Lymph % (Auto) [place] % (Auto) Lymph # [place] # Baso # Seg Neutrophils % Seg Neuts % (Manual) Lymphocytes % (Manual) Monocytes % (Manual) Eosinophils % (Manual) Basophils % (Manual) Nucleated RBC % Seg Neutrophils # Seg Neutrophils # Man Lymphocytes # (Manual) Monocytes # (Manual) Eosinophils # (Manual) Basophils # (Manual) PT INR Fibrinogen dRVVT Confirm Interp Factor V Activity POC ABG pH POC ABG pCO2 POC ABG pO2 ABG pO2 ABG HCO3 ABG Base Excess ABG Hemoglobin Oxyhemoglobin Sodium 149 H Potassium Chloride 107.9 H Carbon Dioxide 20 L BUN 117 H Creatinine 3.2 H Glucose 119 H POC Glucose 121 H Lactic Acid Calcium Ionized Calcium Phosphorus Magnesium Direct Bilirubin AST ALT Alkaline Phosphatase Lactate Dehydrogenase Troponin T C-Reactive Protein Total Protein Albumin Prealbumin Triglycerides Cholesterol LDL Cholesterol Direct HDL Cholesterol 25-OH Vitamin D Total PTH Intact Urine pH Urine WBC (Auto) Urine Creatinine Urine Total Protein Fluid Total Protein Vancomycin Trough Rheumatoid Factor Complement C4 Miscellaneous Test Crossmatch 10/18/16 10/18/16 10/18/16 05:23 10:46 17:30 WBC RBC Hgb Hct MCV MCH MCHC RDW Plt Count Lymph % (Auto) [place] % (Auto) Lymph # [place] # Baso # Seg Neutrophils % Seg Neuts % (Manual) Lymphocytes % (Manual) Monocytes % (Manual) Eosinophils % (Manual) Basophils % (Manual) Nucleated RBC % Seg Neutrophils # Seg Neutrophils # Man Lymphocytes # (Manual) Monocytes # (Manual) Eosinophils # (Manual) Basophils # (Manual) PT INR Fibrinogen dRVVT Confirm Interp Factor V Activity POC ABG pH POC ABG pCO2 POC ABG pO2 ABG pO2 ABG HCO3 ABG Base Excess ABG Hemoglobin Oxyhemoglobin Sodium Potassium Chloride Carbon Dioxide BUN Creatinine Glucose POC Glucose 119 H 155 H 124 H Lactic Acid Calcium Ionized Calcium Phosphorus Magnesium Direct Bilirubin AST ALT Alkaline Phosphatase Lactate Dehydrogenase Troponin T C-Reactive Protein Total Protein Albumin Prealbumin Triglycerides Cholesterol LDL Cholesterol Direct HDL Cholesterol 25-OH Vitamin D Total PTH Intact Urine pH Urine WBC (Auto) Urine Creatinine Urine Total Protein Fluid Total Protein Vancomycin Trough Rheumatoid Factor Complement C4 Miscellaneous Test Crossmatch 10/19/16 10/19/16 10/19/16 04:00 04:00 05:25 WBC 17.4 H RBC 2.54 L Hgb 7.7 L Hct 23.6 L MCV MCH MCHC RDW 17.3 H Plt Count Lymph % (Auto) [place] % (Auto) Lymph # [place] # Baso # Seg Neutrophils % Seg Neuts % (Manual) Lymphocytes % (Manual) Monocytes % (Manual) Eosinophils % (Manual) Basophils % (Manual) Nucleated RBC % Seg Neutrophils # Seg Neutrophils # Man Lymphocytes # (Manual) Monocytes # (Manual) Eosinophils # (Manual) Basophils # (Manual) PT INR Fibrinogen dRVVT Confirm Interp Factor V Activity POC ABG pH POC ABG pCO2 POC ABG pO2 ABG pO2 ABG HCO3 ABG Base Excess ABG Hemoglobin Oxyhemoglobin Sodium Potassium Chloride Carbon Dioxide BUN 72 H Creatinine 2.1 H Glucose 116 H POC Glucose 119 H Lactic Acid Calcium Ionized Calcium Phosphorus Magnesium Direct Bilirubin AST ALT Alkaline Phosphatase Lactate Dehydrogenase Troponin T C-Reactive Protein Total Protein Albumin Prealbumin Triglycerides Cholesterol LDL Cholesterol Direct HDL Cholesterol 25-OH Vitamin D Total PTH Intact Urine pH Urine WBC (Auto) Urine Creatinine Urine Total Protein Fluid Total Protein Vancomycin Trough Rheumatoid Factor Complement C4 Miscellaneous Test Crossmatch 10/19/16 10/19/16 10/20/16 11:46 23:59 06:00 WBC RBC Hgb Hct MCV MCH MCHC RDW Plt Count Lymph % (Auto) [place] % (Auto) Lymph # [place] # Baso # Seg Neutrophils % Seg Neuts % (Manual) Lymphocytes % (Manual) Monocytes % (Manual) Eosinophils % (Manual) Basophils % (Manual) Nucleated RBC % Seg Neutrophils # Seg Neutrophils # Man Lymphocytes # (Manual) Monocytes # (Manual) Eosinophils # (Manual) Basophils # (Manual) PT INR Fibrinogen dRVVT Confirm Interp Factor V Activity POC ABG pH POC ABG pCO2 POC ABG pO2 ABG pO2 ABG HCO3 ABG Base Excess ABG Hemoglobin Oxyhemoglobin Sodium Potassium Chloride Carbon Dioxide 17 L BUN 94 H Creatinine 2.7 H Glucose POC Glucose 116 H 117 H Lactic Acid Calcium Ionized Calcium Phosphorus Magnesium Direct Bilirubin AST ALT Alkaline Phosphatase Lactate Dehydrogenase Troponin T C-Reactive Protein Total Protein Albumin Prealbumin Triglycerides Cholesterol LDL Cholesterol Direct HDL Cholesterol 25-OH Vitamin D Total PTH Intact Urine pH Urine WBC (Auto) Urine Creatinine Urine Total Protein Fluid Total Protein Vancomycin Trough Rheumatoid Factor Complement C4 Miscellaneous Test Crossmatch 10/20/16 10/20/16 10/20/16 06:00 11:49 16:00 WBC 19.7 H RBC 2.51 L Hgb 7.7 L Hct 23.5 L MCV MCH MCHC RDW 17.5 H Plt Count Lymph % (Auto) [place] % (Auto) Lymph # [place] # Baso # Seg Neutrophils % Seg Neuts % (Manual) Lymphocytes % (Manual) Monocytes % (Manual) Eosinophils % (Manual) Basophils % (Manual) Nucleated RBC % Seg Neutrophils # Seg Neutrophils # Man Lymphocytes # (Manual) Monocytes # (Manual) Eosinophils # (Manual) Basophils # (Manual) PT INR Fibrinogen dRVVT Confirm Interp Factor V Activity POC ABG pH POC ABG pCO2 POC ABG pO2 ABG pO2 ABG HCO3 ABG Base Excess ABG Hemoglobin Oxyhemoglobin Sodium Potassium Chloride Carbon Dioxide BUN Creatinine Glucose POC Glucose 117 H Lactic Acid Calcium Ionized Calcium Phosphorus Magnesium Direct Bilirubin AST ALT Alkaline Phosphatase Lactate Dehydrogenase Troponin T C-Reactive Protein Total Protein Albumin Prealbumin Triglycerides Cholesterol LDL Cholesterol Direct HDL Cholesterol 25-OH Vitamin D Total PTH Intact Urine pH Urine WBC (Auto) Urine Creatinine Urine Total Protein Fluid Total Protein Vancomycin Trough Rheumatoid Factor Complement C4 Miscellaneous Test Flexitest 1 H Crossmatch 10/20/16 10/20/16 10/21/16 18:36 23:39 04:00 WBC RBC Hgb Hct MCV MCH MCHC RDW Plt Count Lymph % (Auto) [place] % (Auto) Lymph # [place] # Baso # Seg Neutrophils % Seg Neuts % (Manual) Lymphocytes % (Manual) Monocytes % (Manual) Eosinophils % (Manual) Basophils % (Manual) Nucleated RBC % Seg Neutrophils # Seg Neutrophils # Man Lymphocytes # (Manual) Monocytes # (Manual) Eosinophils # (Manual) Basophils # (Manual) PT INR Fibrinogen dRVVT Confirm Interp Factor V Activity POC ABG pH POC ABG pCO2 POC ABG pO2 ABG pO2 ABG HCO3 ABG Base Excess ABG Hemoglobin Oxyhemoglobin Sodium Potassium 5.4 H D Chloride Carbon Dioxide 15 L BUN 110 H Creatinine 3.0 H Glucose POC Glucose 127 H 114 H Lactic Acid Calcium Ionized Calcium Phosphorus Magnesium Direct Bilirubin AST ALT Alkaline Phosphatase Lactate Dehydrogenase Troponin T C-Reactive Protein Total Protein Albumin Prealbumin Triglycerides Cholesterol LDL Cholesterol Direct HDL Cholesterol 25-OH Vitamin D Total PTH Intact Urine pH Urine WBC (Auto) Urine Creatinine Urine Total Protein Fluid Total Protein Vancomycin Trough Rheumatoid Factor Complement C4 Miscellaneous Test Crossmatch 10/21/16 10/21/16 10/22/16 05:54 23:46 05:18 WBC RBC Hgb Hct MCV MCH MCHC RDW Plt Count Lymph % (Auto) [place] % (Auto) Lymph # [place] # Baso # Seg Neutrophils % Seg Neuts % (Manual) Lymphocytes % (Manual) Monocytes % (Manual) Eosinophils % (Manual) Basophils % (Manual) Nucleated RBC % Seg Neutrophils # Seg Neutrophils # Man Lymphocytes # (Manual) Monocytes # (Manual) Eosinophils # (Manual) Basophils # (Manual) PT INR Fibrinogen dRVVT Confirm Interp Factor V Activity POC ABG pH POC ABG pCO2 POC ABG pO2 ABG pO2 ABG HCO3 ABG Base Excess ABG Hemoglobin Oxyhemoglobin Sodium Potassium Chloride Carbon Dioxide BUN Creatinine Glucose POC Glucose 119 H 108 H 109 H Lactic Acid Calcium Ionized Calcium Phosphorus Magnesium Direct Bilirubin AST ALT Alkaline Phosphatase Lactate Dehydrogenase Troponin T C-Reactive Protein Total Protein Albumin Prealbumin Triglycerides Cholesterol LDL Cholesterol Direct HDL Cholesterol 25-OH Vitamin D Total PTH Intact Urine pH Urine WBC (Auto) Urine Creatinine Urine Total Protein Fluid Total Protein Vancomycin Trough Rheumatoid Factor Complement C4 Miscellaneous Test Crossmatch 10/22/16 10/22/16 10/22/16 06:40 06:40 06:40 WBC 14.0 H RBC 2.03 L Hgb 7.0 L Hct 20.5 L MCV 98 H MCH 34 H MCHC 35 H RDW 17.8 H Plt Count Lymph % (Auto) [place] % (Auto) 9.9 H Lymph # [place] # 1.4 H Baso # 0.2 H Seg Neutrophils % 72.0 H Seg Neuts % (Manual) Lymphocytes % (Manual) Monocytes % (Manual) Eosinophils % (Manual) Basophils % (Manual) Nucleated RBC % Seg Neutrophils # 10.0 H Seg Neutrophils # Man Lymphocytes # (Manual) Monocytes # (Manual) Eosinophils # (Manual) Basophils # (Manual) PT INR Fibrinogen dRVVT Confirm Interp Factor V Activity POC ABG pH POC ABG pCO2 POC ABG pO2 ABG pO2 ABG HCO3 ABG Base Excess ABG Hemoglobin Oxyhemoglobin Sodium 130 L D Potassium Chloride 92.4 L Carbon Dioxide 20 L BUN 50 H Creatinine 1.6 H Glucose 589 H* POC Glucose Lactic Acid Calcium 7.8 L D Ionized Calcium Phosphorus Magnesium 1.60 L Direct Bilirubin AST ALT Alkaline Phosphatase Lactate Dehydrogenase Troponin T C-Reactive Protein Total Protein Albumin Prealbumin Triglycerides Cholesterol LDL Cholesterol Direct HDL Cholesterol 25-OH Vitamin D Total PTH Intact Urine pH Urine WBC (Auto) Urine Creatinine Urine Total Protein Fluid Total Protein Vancomycin Trough Rheumatoid Factor Complement C4 Miscellaneous Test Crossmatch 10/22/16 10/22/16 10/22/16 11:39 16:44 23:36 WBC RBC Hgb Hct MCV MCH MCHC RDW Plt Count Lymph % (Auto) [place] % (Auto) Lymph # [place] # Baso # Seg Neutrophils % Seg Neuts % (Manual) Lymphocytes % (Manual) Monocytes % (Manual) Eosinophils % (Manual) Basophils % (Manual) Nucleated RBC % Seg Neutrophils # Seg Neutrophils # Man Lymphocytes # (Manual) Monocytes # (Manual) Eosinophils # (Manual) Basophils # (Manual) PT INR Fibrinogen dRVVT Confirm Interp Factor V Activity POC ABG pH POC ABG pCO2 POC ABG pO2 ABG pO2 ABG HCO3 ABG Base Excess ABG Hemoglobin Oxyhemoglobin Sodium Potassium Chloride Carbon Dioxide BUN Creatinine Glucose POC Glucose 142 H 163 H 123 H Lactic Acid Calcium Ionized Calcium Phosphorus Magnesium Direct Bilirubin AST ALT Alkaline Phosphatase Lactate Dehydrogenase Troponin T C-Reactive Protein Total Protein Albumin Prealbumin Triglycerides Cholesterol LDL Cholesterol Direct HDL Cholesterol 25-OH Vitamin D Total PTH Intact Urine pH Urine WBC (Auto) Urine Creatinine Urine Total Protein Fluid Total Protein Vancomycin Trough Rheumatoid Factor Complement C4 Miscellaneous Test Crossmatch 10/23/16 10/23/16 10/23/16 04:58 06:00 12:12 WBC RBC Hgb Hct MCV MCH MCHC RDW Plt Count Lymph % (Auto) [place] % (Auto) Lymph # [place] # Baso # Seg Neutrophils % Seg Neuts % (Manual) Lymphocytes % (Manual) Monocytes % (Manual) Eosinophils % (Manual) Basophils % (Manual) Nucleated RBC % Seg Neutrophils # Seg Neutrophils # Man Lymphocytes # (Manual) Monocytes # (Manual) Eosinophils # (Manual) Basophils # (Manual) PT INR Fibrinogen dRVVT Confirm Interp Factor V Activity POC ABG pH POC ABG pCO2 POC ABG pO2 ABG pO2 ABG HCO3 ABG Base Excess ABG Hemoglobin Oxyhemoglobin Sodium 133 L Potassium 3.5 L Chloride 96.1 L Carbon Dioxide 18 L BUN 76 H Creatinine 2.1 H Glucose POC Glucose 133 H 138 H Lactic Acid Calcium 8.3 L Ionized Calcium Phosphorus Magnesium Direct Bilirubin AST ALT Alkaline Phosphatase Lactate Dehydrogenase Troponin T C-Reactive Protein Total Protein Albumin Prealbumin Triglycerides Cholesterol LDL Cholesterol Direct HDL Cholesterol 25-OH Vitamin D Total PTH Intact Urine pH Urine WBC (Auto) Urine Creatinine Urine Total Protein Fluid Total Protein Vancomycin Trough Rheumatoid Factor Complement C4 Miscellaneous Test Crossmatch 10/23/16 10/23/16 10/24/16 16:53 23:37 04:00 WBC RBC Hgb Hct MCV MCH MCHC RDW Plt Count Lymph % (Auto) [place] % (Auto) Lymph # [place] # Baso # Seg Neutrophils % Seg Neuts % (Manual) Lymphocytes % (Manual) Monocytes % (Manual) Eosinophils % (Manual) Basophils % (Manual) Nucleated RBC % Seg Neutrophils # Seg Neutrophils # Man Lymphocytes # (Manual) Monocytes # (Manual) Eosinophils # (Manual) Basophils # (Manual) PT INR Fibrinogen dRVVT Confirm Interp Factor V Activity POC ABG pH POC ABG pCO2 POC ABG pO2 ABG pO2 ABG HCO3 ABG Base Excess ABG Hemoglobin Oxyhemoglobin Sodium 131 L Potassium Chloride 94.5 L Carbon Dioxide 19 L BUN 97 H Creatinine 2.6 H Glucose 110 H POC Glucose 125 H 123 H Lactic Acid Calcium 8.3 L Ionized Calcium Phosphorus Magnesium Direct Bilirubin AST ALT Alkaline Phosphatase Lactate Dehydrogenase Troponin T C-Reactive Protein Total Protein Albumin Prealbumin Triglycerides Cholesterol LDL Cholesterol Direct HDL Cholesterol 25-OH Vitamin D Total PTH Intact Urine pH Urine WBC (Auto) Urine Creatinine Urine Total Protein Fluid Total Protein Vancomycin Trough Rheumatoid Factor Complement C4 Miscellaneous Test Crossmatch 10/24/16 10/24/16 10/24/16 07:49 11:39 17:52 WBC RBC Hgb 6.0 L Hct 19.7 L* MCV MCH MCHC RDW Plt Count Lymph % (Auto) [place] % (Auto) Lymph # [place] # Baso # Seg Neutrophils % Seg Neuts % (Manual) Lymphocytes % (Manual) Monocytes % (Manual) Eosinophils % (Manual) Basophils % (Manual) Nucleated RBC % Seg Neutrophils # Seg Neutrophils # Man Lymphocytes # (Manual) Monocytes # (Manual) Eosinophils # (Manual) Basophils # (Manual) PT INR Fibrinogen dRVVT Confirm Interp Factor V Activity POC ABG pH POC ABG pCO2 POC ABG pO2 ABG pO2 ABG HCO3 ABG Base Excess ABG Hemoglobin Oxyhemoglobin Sodium Potassium Chloride Carbon Dioxide BUN Creatinine Glucose POC Glucose 106 H 158 H Lactic Acid Calcium Ionized Calcium Phosphorus Magnesium Direct Bilirubin AST ALT Alkaline Phosphatase Lactate Dehydrogenase Troponin T C-Reactive Protein Total Protein Albumin Prealbumin Triglycerides Cholesterol LDL Cholesterol Direct HDL Cholesterol 25-OH Vitamin D Total PTH Intact Urine pH Urine WBC (Auto) Urine Creatinine Urine Total Protein Fluid Total Protein Vancomycin Trough Rheumatoid Factor Complement C4 Miscellaneous Test Crossmatch 10/24/16 10/24/16 10/24/16 20:00 22:27 Unknown WBC RBC Hgb 9.4 L D Hct 27.5 L D MCV MCH MCHC RDW Plt Count Lymph % (Auto) [place] % (Auto) Lymph # [place] # Baso # Seg Neutrophils % Seg Neuts % (Manual) Lymphocytes % (Manual) Monocytes % (Manual) Eosinophils % (Manual) Basophils % (Manual) Nucleated RBC % Seg Neutrophils # Seg Neutrophils # Man Lymphocytes # (Manual) Monocytes # (Manual) Eosinophils # (Manual) Basophils # (Manual) PT INR Fibrinogen dRVVT Confirm Interp Factor V Activity POC ABG pH POC ABG pCO2 POC ABG pO2 ABG pO2 ABG HCO3 ABG Base Excess ABG Hemoglobin Oxyhemoglobin Sodium Potassium Chloride Carbon Dioxide BUN Creatinine Glucose POC Glucose 125 H Lactic Acid Calcium Ionized Calcium Phosphorus Magnesium Direct Bilirubin AST ALT Alkaline Phosphatase Lactate Dehydrogenase Troponin T C-Reactive Protein Total Protein Albumin Prealbumin Triglycerides Cholesterol LDL Cholesterol Direct HDL Cholesterol 25-OH Vitamin D Total PTH Intact Urine pH Urine WBC (Auto) Urine Creatinine Urine Total Protein Fluid Total Protein Vancomycin Trough Rheumatoid Factor Complement C4 Miscellaneous Test Crossmatch See Detail 10/25/16 10/25/16 10/25/16 04:00 04:00 04:00 WBC 14.2 H RBC 2.98 L Hgb 9.0 L Hct 26.2 L MCV MCH MCHC RDW 16.6 H Plt Count Lymph % (Auto) [place] % (Auto) 10.7 H Lymph # [place] # 1.5 H Baso # Seg Neutrophils % 73.6 H Seg Neuts % (Manual) Lymphocytes % (Manual) Monocytes % (Manual) Eosinophils % (Manual) Basophils % (Manual) Nucleated RBC % Seg Neutrophils # 10.5 H Seg Neutrophils # Man Lymphocytes # (Manual) Monocytes # (Manual) Eosinophils # (Manual) Basophils # (Manual) PT INR Fibrinogen dRVVT Confirm Interp Factor V Activity POC ABG pH POC ABG pCO2 POC ABG pO2 ABG pO2 ABG HCO3 ABG Base Excess ABG Hemoglobin Oxyhemoglobin Sodium 132 L Potassium Chloride 94.7 L Carbon Dioxide BUN 51 H Creatinine 1.6 H Glucose 130 H POC Glucose Lactic Acid Calcium 8.3 L Ionized Calcium Phosphorus 1.60 L D Magnesium Direct Bilirubin AST ALT Alkaline Phosphatase Lactate Dehydrogenase Troponin T C-Reactive Protein Total Protein Albumin Prealbumin Triglycerides Cholesterol LDL Cholesterol Direct HDL Cholesterol 25-OH Vitamin D Total PTH Intact Urine pH Urine WBC (Auto) Urine Creatinine Urine Total Protein Fluid Total Protein Vancomycin Trough Rheumatoid Factor Complement C4 Miscellaneous Test Crossmatch 10/25/16 10/25/16 10/25/16 04:32 11:48 17:22 WBC RBC Hgb Hct MCV MCH MCHC RDW Plt Count Lymph % (Auto) [place] % (Auto) Lymph # [place] # Baso # Seg Neutrophils % Seg Neuts % (Manual) Lymphocytes % (Manual) Monocytes % (Manual) Eosinophils % (Manual) Basophils % (Manual) Nucleated RBC % Seg Neutrophils # Seg Neutrophils # Man Lymphocytes # (Manual) Monocytes # (Manual) Eosinophils # (Manual) Basophils # (Manual) PT INR Fibrinogen dRVVT Confirm Interp Factor V Activity POC ABG pH POC ABG pCO2 POC ABG pO2 ABG pO2 ABG HCO3 ABG Base Excess ABG Hemoglobin Oxyhemoglobin Sodium Potassium Chloride Carbon Dioxide BUN Creatinine Glucose POC Glucose 124 H 171 H 120 H Lactic Acid Calcium Ionized Calcium Phosphorus Magnesium Direct Bilirubin AST ALT Alkaline Phosphatase Lactate Dehydrogenase Troponin T C-Reactive Protein Total Protein Albumin Prealbumin Triglycerides Cholesterol LDL Cholesterol Direct HDL Cholesterol 25-OH Vitamin D Total PTH Intact Urine pH Urine WBC (Auto) Urine Creatinine Urine Total Protein Fluid Total Protein Vancomycin Trough Rheumatoid Factor Complement C4 Miscellaneous Test Crossmatch 10/26/16 10/26/16 10/26/16 04:54 07:06 07:06 WBC 16.9 H RBC 3.06 L Hgb 9.1 L Hct 26.9 L MCV MCH MCHC RDW 16.9 H Plt Count Lymph % (Auto) [place] % (Auto) Lymph # [place] # Baso # Seg Neutrophils % Seg Neuts % (Manual) 71.0 H Lymphocytes % (Manual) 5.0 L Monocytes % (Manual) 12.0 H Eosinophils % (Manual) Basophils % (Manual) Nucleated RBC % Seg Neutrophils # Seg Neutrophils # Man 12.0 H Lymphocytes # (Manual) 0.8 L Monocytes # (Manual) 2.0 H Eosinophils # (Manual) Basophils # (Manual) PT INR Fibrinogen dRVVT Confirm Interp Factor V Activity POC ABG pH POC ABG pCO2 POC ABG pO2 ABG pO2 ABG HCO3 ABG Base Excess ABG Hemoglobin Oxyhemoglobin Sodium 135 L Potassium Chloride 97.1 L Carbon Dioxide BUN 73 H Creatinine 2.2 H Glucose 117 H POC Glucose 123 H Lactic Acid Calcium Ionized Calcium Phosphorus 1.70 L Magnesium Direct Bilirubin AST ALT Alkaline Phosphatase Lactate Dehydrogenase Troponin T C-Reactive Protein Total Protein Albumin Prealbumin Triglycerides Cholesterol LDL Cholesterol Direct HDL Cholesterol 25-OH Vitamin D Total PTH Intact Urine pH Urine WBC (Auto) Urine Creatinine Urine Total Protein Fluid Total Protein Vancomycin Trough Rheumatoid Factor Complement C4 Miscellaneous Test Crossmatch 10/26/16 10/26/16 10/26/16 12:12 17:29 23:42 WBC RBC Hgb Hct MCV MCH MCHC RDW Plt Count Lymph % (Auto) [place] % (Auto) Lymph # [place] # Baso # Seg Neutrophils % Seg Neuts % (Manual) Lymphocytes % (Manual) Monocytes % (Manual) Eosinophils % (Manual) Basophils % (Manual) Nucleated RBC % Seg Neutrophils # Seg Neutrophils # Man Lymphocytes # (Manual) Monocytes # (Manual) Eosinophils # (Manual) Basophils # (Manual) PT INR Fibrinogen dRVVT Confirm Interp Factor V Activity POC ABG pH POC ABG pCO2 POC ABG pO2 ABG pO2 ABG HCO3 ABG Base Excess ABG Hemoglobin Oxyhemoglobin Sodium Potassium Chloride Carbon Dioxide BUN Creatinine Glucose POC Glucose 126 H 161 H 118 H Lactic Acid Calcium Ionized Calcium Phosphorus Magnesium Direct Bilirubin AST ALT Alkaline Phosphatase Lactate Dehydrogenase Troponin T C-Reactive Protein Total Protein Albumin Prealbumin Triglycerides Cholesterol LDL Cholesterol Direct HDL Cholesterol 25-OH Vitamin D Total PTH Intact Urine pH Urine WBC (Auto) Urine Creatinine Urine Total Protein Fluid Total Protein Vancomycin Trough Rheumatoid Factor Complement C4 Miscellaneous Test Crossmatch 10/27/16 10/27/16 10/27/16 05:03 06:30 06:30 WBC 13.9 H RBC 3.09 L Hgb 9.2 L Hct 27.5 L MCV MCH MCHC RDW 17.0 H Plt Count Lymph % (Auto) [place] % (Auto) Lymph # [place] # Baso # Seg Neutrophils % Seg Neuts % (Manual) 78.0 H Lymphocytes % (Manual) Monocytes % (Manual) Eosinophils % (Manual) Basophils % (Manual) Nucleated RBC % 2.0 H Seg Neutrophils # Seg Neutrophils # Man 10.8 H Lymphocytes # (Manual) Monocytes # (Manual) 1.0 H Eosinophils # (Manual) Basophils # (Manual) PT INR Fibrinogen dRVVT Confirm Interp Factor V Activity POC ABG pH POC ABG pCO2 POC ABG pO2 ABG pO2 ABG HCO3 ABG Base Excess ABG Hemoglobin Oxyhemoglobin Sodium Potassium Chloride Carbon Dioxide BUN 40 H Creatinine 1.5 H Glucose 135 H POC Glucose 107 H Lactic Acid Calcium 8.3 L Ionized Calcium Phosphorus 1.30 L D Magnesium Direct Bilirubin AST ALT Alkaline Phosphatase Lactate Dehydrogenase Troponin T C-Reactive Protein Total Protein Albumin Prealbumin Triglycerides Cholesterol LDL Cholesterol Direct HDL Cholesterol 25-OH Vitamin D Total PTH Intact Urine pH Urine WBC (Auto) Urine Creatinine Urine Total Protein Fluid Total Protein Vancomycin Trough Rheumatoid Factor Complement C4 Miscellaneous Test Crossmatch 10/27/16 10/27/16 10/27/16 13:27 18:07 23:40 WBC RBC Hgb Hct MCV MCH MCHC RDW Plt Count Lymph % (Auto) [place] % (Auto) Lymph # [place] # Baso # Seg Neutrophils % Seg Neuts % (Manual) Lymphocytes % (Manual) Monocytes % (Manual) Eosinophils % (Manual) Basophils % (Manual) Nucleated RBC % Seg Neutrophils # Seg Neutrophils # Man Lymphocytes # (Manual) Monocytes # (Manual) Eosinophils # (Manual) Basophils # (Manual) PT INR Fibrinogen dRVVT Confirm Interp Factor V Activity POC ABG pH POC ABG pCO2 POC ABG pO2 ABG pO2 ABG HCO3 ABG Base Excess ABG Hemoglobin Oxyhemoglobin Sodium Potassium Chloride Carbon Dioxide BUN Creatinine Glucose POC Glucose 117 H 121 H 118 H Lactic Acid Calcium Ionized Calcium Phosphorus Magnesium Direct Bilirubin AST ALT Alkaline Phosphatase Lactate Dehydrogenase Troponin T C-Reactive Protein Total Protein Albumin Prealbumin Triglycerides Cholesterol LDL Cholesterol Direct HDL Cholesterol 25-OH Vitamin D Total PTH Intact Urine pH Urine WBC (Auto) Urine Creatinine Urine Total Protein Fluid Total Protein Vancomycin Trough Rheumatoid Factor Complement C4 Miscellaneous Test Crossmatch 10/28/16 10/28/16 10/28/16 05:48 06:45 06:45 WBC 14.7 H RBC 3.05 L Hgb 9.0 L Hct 26.9 L MCV MCH MCHC RDW 16.8 H Plt Count Lymph % (Auto) 8.2 L [place] % (Auto) 8.4 H Lymph # [place] # 1.2 H Baso # Seg Neutrophils % 81.9 H Seg Neuts % (Manual) Lymphocytes % (Manual) Monocytes % (Manual) Eosinophils % (Manual) Basophils % (Manual) Nucleated RBC % Seg Neutrophils # 12.1 H Seg Neutrophils # Man Lymphocytes # (Manual) Monocytes # (Manual) Eosinophils # (Manual) Basophils # (Manual) PT INR Fibrinogen dRVVT Confirm Interp Factor V Activity POC ABG pH POC ABG pCO2 POC ABG pO2 ABG pO2 ABG HCO3 ABG Base Excess ABG Hemoglobin Oxyhemoglobin Sodium Potassium Chloride Carbon Dioxide BUN 60 H Creatinine 1.9 H Glucose 120 H POC Glucose 114 H Lactic Acid Calcium Ionized Calcium Phosphorus Magnesium Direct Bilirubin AST ALT Alkaline Phosphatase Lactate Dehydrogenase Troponin T C-Reactive Protein Total Protein Albumin Prealbumin Triglycerides Cholesterol LDL Cholesterol Direct HDL Cholesterol 25-OH Vitamin D Total PTH Intact Urine pH Urine WBC (Auto) Urine Creatinine Urine Total Protein Fluid Total Protein Vancomycin Trough Rheumatoid Factor Complement C4 Miscellaneous Test Crossmatch 10/28/16 10/28/16 10/29/16 17:08 23:50 05:10 WBC RBC Hgb Hct MCV MCH MCHC RDW Plt Count Lymph % (Auto) [place] % (Auto) Lymph # [place] # Baso # Seg Neutrophils % Seg Neuts % (Manual) Lymphocytes % (Manual) Monocytes % (Manual) Eosinophils % (Manual) Basophils % (Manual) Nucleated RBC % Seg Neutrophils # Seg Neutrophils # Man Lymphocytes # (Manual) Monocytes # (Manual) Eosinophils # (Manual) Basophils # (Manual) PT INR Fibrinogen dRVVT Confirm Interp Factor V Activity POC ABG pH POC ABG pCO2 POC ABG pO2 ABG pO2 ABG HCO3 ABG Base Excess ABG Hemoglobin Oxyhemoglobin Sodium Potassium Chloride Carbon Dioxide BUN Creatinine Glucose POC Glucose 109 H 110 H 124 H Lactic Acid Calcium Ionized Calcium Phosphorus Magnesium Direct Bilirubin AST ALT Alkaline Phosphatase Lactate Dehydrogenase Troponin T C-Reactive Protein Total Protein Albumin Prealbumin Triglycerides Cholesterol LDL Cholesterol Direct HDL Cholesterol 25-OH Vitamin D Total PTH Intact Urine pH Urine WBC (Auto) Urine Creatinine Urine Total Protein Fluid Total Protein Vancomycin Trough Rheumatoid Factor Complement C4 Miscellaneous Test Crossmatch 10/29/16 10/29/16 10/29/16 07:45 07:45 12:19 WBC 14.7 H RBC 3.15 L Hgb 9.3 L Hct 28.9 L MCV MCH MCHC RDW 17.0 H Plt Count Lymph % (Auto) 11.9 L [place] % (Auto) 8.6 H Lymph # [place] # 1.3 H Baso # Seg Neutrophils % 78.1 H Seg Neuts % (Manual) Lymphocytes % (Manual) Monocytes % (Manual) Eosinophils % (Manual) Basophils % (Manual) Nucleated RBC % Seg Neutrophils # 11.4 H Seg Neutrophils # Man Lymphocytes # (Manual) Monocytes # (Manual) Eosinophils # (Manual) Basophils # (Manual) PT INR Fibrinogen dRVVT Confirm Interp Factor V Activity POC ABG pH POC ABG pCO2 POC ABG pO2 ABG pO2 ABG HCO3 ABG Base Excess ABG Hemoglobin Oxyhemoglobin Sodium Potassium 5.1 H Chloride Carbon Dioxide 19 L BUN 78 H Creatinine 2.2 H Glucose 116 H POC Glucose 118 H Lactic Acid Calcium Ionized Calcium Phosphorus Magnesium Direct Bilirubin AST ALT Alkaline Phosphatase Lactate Dehydrogenase Troponin T C-Reactive Protein Total Protein Albumin Prealbumin Triglycerides Cholesterol LDL Cholesterol Direct HDL Cholesterol 25-OH Vitamin D Total PTH Intact Urine pH Urine WBC (Auto) Urine Creatinine Urine Total Protein Fluid Total Protein Vancomycin Trough Rheumatoid Factor Complement C4 Miscellaneous Test Crossmatch 10/29/16 10/30/16 10/30/16 17:49 01:52 03:28 WBC RBC Hgb Hct MCV MCH MCHC RDW Plt Count Lymph % (Auto) [place] % (Auto) Lymph # [place] # Baso # Seg Neutrophils % Seg Neuts % (Manual) Lymphocytes % (Manual) Monocytes % (Manual) Eosinophils % (Manual) Basophils % (Manual) Nucleated RBC % Seg Neutrophils # Seg Neutrophils # Man Lymphocytes # (Manual) Monocytes # (Manual) Eosinophils # (Manual) Basophils # (Manual) PT INR Fibrinogen dRVVT Confirm Interp Factor V Activity POC ABG pH POC ABG pCO2 POC ABG pO2 ABG pO2 ABG HCO3 ABG Base Excess ABG Hemoglobin Oxyhemoglobin Sodium Potassium 5.4 H Chloride 97.5 L Carbon Dioxide 19 L BUN 90 H Creatinine 2.5 H Glucose POC Glucose 120 H 129 H Lactic Acid Calcium Ionized Calcium Phosphorus 5.20 H Magnesium Direct Bilirubin AST ALT Alkaline Phosphatase Lactate Dehydrogenase Troponin T C-Reactive Protein Total Protein Albumin Prealbumin Triglycerides Cholesterol LDL Cholesterol Direct HDL Cholesterol 25-OH Vitamin D Total PTH Intact Urine pH Urine WBC (Auto) Urine Creatinine Urine Total Protein Fluid Total Protein Vancomycin Trough Rheumatoid Factor Complement C4 Miscellaneous Test Crossmatch 10/30/16 10/30/16 10/30/16 03:28 08:19 08:19 WBC 11.6 H 15.9 H RBC 2.75 L 2.82 L Hgb 7.9 L 8.3 L Hct 24.2 L 25.2 L MCV MCH MCHC RDW 16.7 H 17.2 H Plt Count Lymph % (Auto) [place] % (Auto) 9.8 H Lymph # [place] # 1.1 H Baso # Seg Neutrophils % 74.2 H Seg Neuts % (Manual) Lymphocytes % (Manual) Monocytes % (Manual) Eosinophils % (Manual) Basophils % (Manual) Nucleated RBC % Seg Neutrophils # 8.6 H Seg Neutrophils # Man Lymphocytes # (Manual) Monocytes # (Manual) Eosinophils # (Manual) Basophils # (Manual) PT INR Fibrinogen dRVVT Confirm Interp Factor V Activity POC ABG pH POC ABG pCO2 POC ABG pO2 ABG pO2 ABG HCO3 ABG Base Excess ABG Hemoglobin Oxyhemoglobin Sodium Potassium 5.3 H Chloride 97.4 L Carbon Dioxide 19 L BUN 93 H Creatinine 2.6 H Glucose POC Glucose Lactic Acid Calcium Ionized Calcium Phosphorus Magnesium Direct Bilirubin AST ALT Alkaline Phosphatase Lactate Dehydrogenase Troponin T C-Reactive Protein Total Protein Albumin Prealbumin Triglycerides Cholesterol LDL Cholesterol Direct HDL Cholesterol 25-OH Vitamin D Total PTH Intact Urine pH Urine WBC (Auto) Urine Creatinine Urine Total Protein Fluid Total Protein Vancomycin Trough Rheumatoid Factor Complement C4 Miscellaneous Test Crossmatch 10/30/16 10/30/16 10/31/16 17:11 23:56 00:40 WBC RBC Hgb Hct MCV MCH MCHC RDW Plt Count Lymph % (Auto) [place] % (Auto) Lymph # [place] # Baso # Seg Neutrophils % Seg Neuts % (Manual) Lymphocytes % (Manual) Monocytes % (Manual) Eosinophils % (Manual) Basophils % (Manual) Nucleated RBC % Seg Neutrophils # Seg Neutrophils # Man Lymphocytes # (Manual) Monocytes # (Manual) Eosinophils # (Manual) Basophils # (Manual) PT INR Fibrinogen dRVVT Confirm Interp Factor V Activity POC ABG pH POC ABG pCO2 POC ABG pO2 ABG pO2 ABG HCO3 ABG Base Excess ABG Hemoglobin Oxyhemoglobin Sodium Potassium Chloride Carbon Dioxide BUN Creatinine Glucose POC Glucose 106 H 117 H 120 H Lactic Acid Calcium Ionized Calcium Phosphorus Magnesium Direct Bilirubin AST ALT Alkaline Phosphatase Lactate Dehydrogenase Troponin T C-Reactive Protein Total Protein Albumin Prealbumin Triglycerides Cholesterol LDL Cholesterol Direct HDL Cholesterol 25-OH Vitamin D Total PTH Intact Urine pH Urine WBC (Auto) Urine Creatinine Urine Total Protein Fluid Total Protein Vancomycin Trough Rheumatoid Factor Complement C4 Miscellaneous Test Crossmatch 10/31/16 10/31/16 10/31/16 05:43 07:15 07:15 WBC 12.1 H RBC 2.63 L Hgb 7.7 L Hct 23.3 L MCV MCH MCHC RDW 16.7 H Plt Count Lymph % (Auto) 11.7 L [place] % (Auto) 7.7 H Lymph # [place] # 0.9 H Baso # Seg Neutrophils % 78.0 H Seg Neuts % (Manual) Lymphocytes % (Manual) Monocytes % (Manual) Eosinophils % (Manual) Basophils % (Manual) Nucleated RBC % Seg Neutrophils # 9.4 H Seg Neutrophils # Man Lymphocytes # (Manual) Monocytes # (Manual) Eosinophils # (Manual) Basophils # (Manual) PT INR Fibrinogen dRVVT Confirm Interp Factor V Activity POC ABG pH POC ABG pCO2 POC ABG pO2 ABG pO2 ABG HCO3 ABG Base Excess ABG Hemoglobin Oxyhemoglobin Sodium Potassium Chloride 96.4 L Carbon Dioxide 21 L BUN 99 H Creatinine 2.6 H Glucose 144 H POC Glucose 125 H Lactic Acid Calcium Ionized Calcium Phosphorus 4.80 H Magnesium Direct Bilirubin AST ALT Alkaline Phosphatase Lactate Dehydrogenase Troponin T C-Reactive Protein Total Protein Albumin Prealbumin Triglycerides Cholesterol LDL Cholesterol Direct HDL Cholesterol 25-OH Vitamin D Total PTH Intact Urine pH Urine WBC (Auto) Urine Creatinine Urine Total Protein Fluid Total Protein Vancomycin Trough Rheumatoid Factor Complement C4 Miscellaneous Test Crossmatch 10/31/16 10/31/16 11/01/16 11:46 18:34 00:20 WBC RBC Hgb Hct MCV MCH MCHC RDW Plt Count Lymph % (Auto) [place] % (Auto) Lymph # [place] # Baso # Seg Neutrophils % Seg Neuts % (Manual) Lymphocytes % (Manual) Monocytes % (Manual) Eosinophils % (Manual) Basophils % (Manual) Nucleated RBC % Seg Neutrophils # Seg Neutrophils # Man Lymphocytes # (Manual) Monocytes # (Manual) Eosinophils # (Manual) Basophils # (Manual) PT INR Fibrinogen dRVVT Confirm Interp Factor V Activity POC ABG pH POC ABG pCO2 POC ABG pO2 ABG pO2 ABG HCO3 ABG Base Excess ABG Hemoglobin Oxyhemoglobin Sodium Potassium Chloride Carbon Dioxide BUN Creatinine Glucose POC Glucose 159 H 140 H 132 H Lactic Acid Calcium Ionized Calcium Phosphorus Magnesium Direct Bilirubin AST ALT Alkaline Phosphatase Lactate Dehydrogenase Troponin T C-Reactive Protein Total Protein Albumin Prealbumin Triglycerides Cholesterol LDL Cholesterol Direct HDL Cholesterol 25-OH Vitamin D Total PTH Intact Urine pH Urine WBC (Auto) Urine Creatinine Urine Total Protein Fluid Total Protein Vancomycin Trough Rheumatoid Factor Complement C4 Miscellaneous Test Crossmatch 11/01/16 11/01/16 11/01/16 04:55 04:55 06:11 WBC 11.2 H RBC 2.68 L Hgb 7.5 L Hct 23.7 L MCV MCH MCHC RDW 16.1 H Plt Count Lymph % (Auto) [place] % (Auto) 9.8 H Lymph # [place] # 1.1 H Baso # Seg Neutrophils % 70.8 H Seg Neuts % (Manual) Lymphocytes % (Manual) Monocytes % (Manual) Eosinophils % (Manual) Basophils % (Manual) Nucleated RBC % Seg Neutrophils # 7.9 H Seg Neutrophils # Man Lymphocytes # (Manual) Monocytes # (Manual) Eosinophils # (Manual) Basophils # (Manual) PT INR Fibrinogen dRVVT Confirm Interp Factor V Activity POC ABG pH POC ABG pCO2 POC ABG pO2 ABG pO2 ABG HCO3 ABG Base Excess ABG Hemoglobin Oxyhemoglobin Sodium Potassium 3.3 L D Chloride Carbon Dioxide BUN 61 H Creatinine 1.9 H Glucose 114 H POC Glucose 115 H Lactic Acid Calcium Ionized Calcium Phosphorus 1.80 L D Magnesium Direct Bilirubin AST ALT Alkaline Phosphatase Lactate Dehydrogenase Troponin T C-Reactive Protein Total Protein Albumin Prealbumin Triglycerides Cholesterol LDL Cholesterol Direct HDL Cholesterol 25-OH Vitamin D Total PTH Intact Urine pH Urine WBC (Auto) Urine Creatinine Urine Total Protein Fluid Total Protein Vancomycin Trough Rheumatoid Factor Complement C4 Miscellaneous Test Crossmatch 11/01/16 11/01/16 11/01/16 12:29 18:23 23:58 WBC RBC Hgb Hct MCV MCH MCHC RDW Plt Count Lymph % (Auto) [place] % (Auto) Lymph # [place] # Baso # Seg Neutrophils % Seg Neuts % (Manual) Lymphocytes % (Manual) Monocytes % (Manual) Eosinophils % (Manual) Basophils % (Manual) Nucleated RBC % Seg Neutrophils # Seg Neutrophils # Man Lymphocytes # (Manual) Monocytes # (Manual) Eosinophils # (Manual) Basophils # (Manual) PT INR Fibrinogen dRVVT Confirm Interp Factor V Activity POC ABG pH POC ABG pCO2 POC ABG pO2 ABG pO2 ABG HCO3 ABG Base Excess ABG Hemoglobin Oxyhemoglobin Sodium Potassium Chloride Carbon Dioxide BUN Creatinine Glucose POC Glucose 142 H 143 H 128 H Lactic Acid Calcium Ionized Calcium Phosphorus Magnesium Direct Bilirubin AST ALT Alkaline Phosphatase Lactate Dehydrogenase Troponin T C-Reactive Protein Total Protein Albumin Prealbumin Triglycerides Cholesterol LDL Cholesterol Direct HDL Cholesterol 25-OH Vitamin D Total PTH Intact Urine pH Urine WBC (Auto) Urine Creatinine Urine Total Protein Fluid Total Protein Vancomycin Trough Rheumatoid Factor Complement C4 Miscellaneous Test Crossmatch 11/02/16 11/02/16 11/02/16 04:16 05:29 11:58 WBC RBC Hgb Hct MCV MCH MCHC RDW Plt Count Lymph % (Auto) [place] % (Auto) Lymph # [place] # Baso # Seg Neutrophils % Seg Neuts % (Manual) Lymphocytes % (Manual) Monocytes % (Manual) Eosinophils % (Manual) Basophils % (Manual) Nucleated RBC % Seg Neutrophils # Seg Neutrophils # Man Lymphocytes # (Manual) Monocytes # (Manual) Eosinophils # (Manual) Basophils # (Manual) PT INR Fibrinogen dRVVT Confirm Interp Factor V Activity POC ABG pH POC ABG pCO2 POC ABG pO2 ABG pO2 ABG HCO3 ABG Base Excess ABG Hemoglobin Oxyhemoglobin Sodium Potassium 3.1 L Chloride Carbon Dioxide BUN 73 H Creatinine 2.3 H Glucose 112 H POC Glucose 135 H 149 H Lactic Acid Calcium Ionized Calcium Phosphorus Magnesium Direct Bilirubin AST ALT Alkaline Phosphatase Lactate Dehydrogenase Troponin T C-Reactive Protein Total Protein Albumin Prealbumin Triglycerides Cholesterol LDL Cholesterol Direct HDL Cholesterol 25-OH Vitamin D Total PTH Intact Urine pH Urine WBC (Auto) Urine Creatinine Urine Total Protein Fluid Total Protein Vancomycin Trough Rheumatoid Factor Complement C4 Miscellaneous Test Crossmatch 11/02/16 11/02/16 11/03/16 17:42 22:54 06:00 WBC RBC Hgb Hct MCV MCH MCHC RDW Plt Count Lymph % (Auto) [place] % (Auto) Lymph # [place] # Baso # Seg Neutrophils % Seg Neuts % (Manual) Lymphocytes % (Manual) Monocytes % (Manual) Eosinophils % (Manual) Basophils % (Manual) Nucleated RBC % Seg Neutrophils # Seg Neutrophils # Man Lymphocytes # (Manual) Monocytes # (Manual) Eosinophils # (Manual) Basophils # (Manual) PT INR Fibrinogen dRVVT Confirm Interp Factor V Activity POC ABG pH POC ABG pCO2 POC ABG pO2 ABG pO2 ABG HCO3 ABG Base Excess ABG Hemoglobin Oxyhemoglobin Sodium Potassium Chloride 96.7 L Carbon Dioxide BUN 41 H Creatinine 1.5 H Glucose 145 H POC Glucose 182 H 115 H Lactic Acid Calcium Ionized Calcium Phosphorus 1.60 L D Magnesium 1.50 L Direct Bilirubin AST ALT Alkaline Phosphatase Lactate Dehydrogenase Troponin T C-Reactive Protein Total Protein Albumin Prealbumin Triglycerides Cholesterol LDL Cholesterol Direct HDL Cholesterol 25-OH Vitamin D Total PTH Intact Urine pH Urine WBC (Auto) Urine Creatinine Urine Total Protein Fluid Total Protein Vancomycin Trough Rheumatoid Factor Complement C4 Miscellaneous Test Crossmatch 11/03/16 11/03/16 11/03/16 11:53 17:45 23:37 WBC RBC Hgb Hct MCV MCH MCHC RDW Plt Count Lymph % (Auto) [place] % (Auto) Lymph # [place] # Baso # Seg Neutrophils % Seg Neuts % (Manual) Lymphocytes % (Manual) Monocytes % (Manual) Eosinophils % (Manual) Basophils % (Manual) Nucleated RBC % Seg Neutrophils # Seg Neutrophils # Man Lymphocytes # (Manual) Monocytes # (Manual) Eosinophils # (Manual) Basophils # (Manual) PT INR Fibrinogen dRVVT Confirm Interp Factor V Activity POC ABG pH POC ABG pCO2 POC ABG pO2 ABG pO2 ABG HCO3 ABG Base Excess ABG Hemoglobin Oxyhemoglobin Sodium Potassium Chloride Carbon Dioxide BUN Creatinine Glucose POC Glucose 131 H 134 H 113 H Lactic Acid Calcium Ionized Calcium Phosphorus Magnesium Direct Bilirubin AST ALT Alkaline Phosphatase Lactate Dehydrogenase Troponin T C-Reactive Protein Total Protein Albumin Prealbumin Triglycerides Cholesterol LDL Cholesterol Direct HDL Cholesterol 25-OH Vitamin D Total PTH Intact Urine pH Urine WBC (Auto) Urine Creatinine Urine Total Protein Fluid Total Protein Vancomycin Trough Rheumatoid Factor Complement C4 Miscellaneous Test Crossmatch 11/04/16 11/04/16 11/04/16 05:41 06:00 12:10 WBC RBC Hgb Hct MCV MCH MCHC RDW Plt Count Lymph % (Auto) [place] % (Auto) Lymph # [place] # Baso # Seg Neutrophils % Seg Neuts % (Manual) Lymphocytes % (Manual) Monocytes % (Manual) Eosinophils % (Manual) Basophils % (Manual) Nucleated RBC % Seg Neutrophils # Seg Neutrophils # Man Lymphocytes # (Manual) Monocytes # (Manual) Eosinophils # (Manual) Basophils # (Manual) PT INR Fibrinogen dRVVT Confirm Interp Factor V Activity POC ABG pH POC ABG pCO2 POC ABG pO2 ABG pO2 ABG HCO3 ABG Base Excess ABG Hemoglobin Oxyhemoglobin Sodium Potassium Chloride 96.7 L Carbon Dioxide BUN 52 H Creatinine 1.9 H Glucose 126 H POC Glucose 137 H 191 H Lactic Acid Calcium Ionized Calcium Phosphorus Magnesium Direct Bilirubin AST ALT Alkaline Phosphatase Lactate Dehydrogenase Troponin T C-Reactive Protein Total Protein Albumin Prealbumin Triglycerides Cholesterol LDL Cholesterol Direct HDL Cholesterol 25-OH Vitamin D Total PTH Intact Urine pH Urine WBC (Auto) Urine Creatinine Urine Total Protein Fluid Total Protein Vancomycin Trough Rheumatoid Factor Complement C4 Miscellaneous Test Crossmatch 11/04/16 11/05/16 11/05/16 22:57 03:10 05:10 WBC RBC Hgb Hct MCV MCH MCHC RDW Plt Count Lymph % (Auto) [place] % (Auto) Lymph # [place] # Baso # Seg Neutrophils % Seg Neuts % (Manual) Lymphocytes % (Manual) Monocytes % (Manual) Eosinophils % (Manual) Basophils % (Manual) Nucleated RBC % Seg Neutrophils # Seg Neutrophils # Man Lymphocytes # (Manual) Monocytes # (Manual) Eosinophils # (Manual) Basophils # (Manual) PT INR Fibrinogen dRVVT Confirm Interp Factor V Activity POC ABG pH POC ABG pCO2 POC ABG pO2 ABG pO2 ABG HCO3 ABG Base Excess ABG Hemoglobin Oxyhemoglobin Sodium 136 L Potassium Chloride 97.2 L Carbon Dioxide BUN 32 H Creatinine 1.3 H Glucose 123 H POC Glucose 125 H 108 H Lactic Acid Calcium 7.8 L Ionized Calcium Phosphorus Magnesium Direct Bilirubin AST ALT Alkaline Phosphatase Lactate Dehydrogenase Troponin T C-Reactive Protein Total Protein Albumin Prealbumin Triglycerides Cholesterol LDL Cholesterol Direct HDL Cholesterol 25-OH Vitamin D Total PTH Intact Urine pH Urine WBC (Auto) Urine Creatinine Urine Total Protein Fluid Total Protein Vancomycin Trough Rheumatoid Factor Complement C4 Miscellaneous Test Crossmatch 11/05/16 11/05/16 11/05/16 12:23 13:09 13:25 WBC RBC Hgb Hct MCV MCH MCHC RDW Plt Count Lymph % (Auto) [place] % (Auto) Lymph # [place] # Baso # Seg Neutrophils % Seg Neuts % (Manual) Lymphocytes % (Manual) Monocytes % (Manual) Eosinophils % (Manual) Basophils % (Manual) Nucleated RBC % Seg Neutrophils # Seg Neutrophils # Man Lymphocytes # (Manual) Monocytes # (Manual) Eosinophils # (Manual) Basophils # (Manual) PT INR Fibrinogen dRVVT Confirm Interp Factor V Activity POC ABG pH POC ABG pCO2 POC ABG pO2 ABG pO2 ABG HCO3 ABG Base Excess ABG Hemoglobin Oxyhemoglobin Sodium Potassium Chloride Carbon Dioxide BUN Creatinine Glucose POC Glucose 124 H Lactic Acid Calcium Ionized Calcium Phosphorus Magnesium Direct Bilirubin AST ALT Alkaline Phosphatase Lactate Dehydrogenase Troponin T C-Reactive Protein 11.40 H Total Protein Albumin Prealbumin Triglycerides Cholesterol LDL Cholesterol Direct HDL Cholesterol 25-OH Vitamin D Total PTH Intact Urine pH 9.0 H Urine WBC (Auto) Urine Creatinine Urine Total Protein Fluid Total Protein Vancomycin Trough Rheumatoid Factor Complement C4 Miscellaneous Test Crossmatch 11/05/16 11/05/16 11/05/16 13:25 17:54 23:42 WBC RBC Hgb Hct MCV MCH MCHC RDW Plt Count Lymph % (Auto) [place] % (Auto) Lymph # [place] # Baso # Seg Neutrophils % Seg Neuts % (Manual) Lymphocytes % (Manual) Monocytes % (Manual) Eosinophils % (Manual) Basophils % (Manual) Nucleated RBC % Seg Neutrophils # Seg Neutrophils # Man Lymphocytes # (Manual) Monocytes # (Manual) Eosinophils # (Manual) Basophils # (Manual) PT INR Fibrinogen dRVVT Confirm Interp Factor V Activity POC ABG pH POC ABG pCO2 POC ABG pO2 ABG pO2 ABG HCO3 ABG Base Excess ABG Hemoglobin Oxyhemoglobin Sodium Potassium Chloride Carbon Dioxide BUN Creatinine Glucose POC Glucose 114 H 134 H Lactic Acid Calcium Ionized Calcium Phosphorus Magnesium Direct Bilirubin AST ALT Alkaline Phosphatase Lactate Dehydrogenase Troponin T C-Reactive Protein Total Protein Albumin Prealbumin Triglycerides Cholesterol LDL Cholesterol Direct HDL Cholesterol 25-OH Vitamin D Total PTH Intact Urine pH Urine WBC (Auto) Urine Creatinine Urine Total Protein Fluid Total Protein Vancomycin Trough Rheumatoid Factor Complement C4 Miscellaneous Test Flexitest 1 H Crossmatch 11/06/16 11/06/16 11/06/16 04:56 06:25 06:25 WBC RBC 2.50 L Hgb 7.3 L Hct 22.5 L MCV MCH MCHC RDW 16.9 H Plt Count Lymph % (Auto) [place] % (Auto) 10.5 H Lymph # [place] # 1.1 H Baso # Seg Neutrophils % Seg Neuts % (Manual) Lymphocytes % (Manual) Monocytes % (Manual) Eosinophils % (Manual) Basophils % (Manual) Nucleated RBC % Seg Neutrophils # Seg Neutrophils # Man Lymphocytes # (Manual) Monocytes # (Manual) Eosinophils # (Manual) Basophils # (Manual) PT INR Fibrinogen dRVVT Confirm Interp Factor V Activity POC ABG pH POC ABG pCO2 POC ABG pO2 ABG pO2 ABG HCO3 ABG Base Excess ABG Hemoglobin Oxyhemoglobin Sodium Potassium 5.1 H Chloride 95.9 L Carbon Dioxide BUN 52 H Creatinine 1.8 H Glucose 117 H POC Glucose 120 H Lactic Acid Calcium Ionized Calcium Phosphorus Magnesium Direct Bilirubin AST 103 H ALT 77 H Alkaline Phosphatase 285 H Lactate Dehydrogenase Troponin T C-Reactive Protein Total Protein 6.2 L Albumin 1.8 L Prealbumin 0.180 L Triglycerides Cholesterol LDL Cholesterol Direct HDL Cholesterol 25-OH Vitamin D Total PTH Intact Urine pH Urine WBC (Auto) Urine Creatinine Urine Total Protein Fluid Total Protein Vancomycin Trough Rheumatoid Factor Complement C4 Miscellaneous Test Crossmatch 11/06/16 11/06/1611/06/17 11:56 17:14 23:52 WBC RBC Hgb Hct MCV MCH MCHC RDW Plt Count Lymph % (Auto) [place] % (Auto) Lymph # [place] # Baso # Seg Neutrophils % Seg Neuts % (Manual) Lymphocytes % (Manual) Monocytes % (Manual) Eosinophils % (Manual) Basophils % (Manual) Nucleated RBC % Seg Neutrophils # Seg Neutrophils # Man Lymphocytes # (Manual) Monocytes # (Manual) Eosinophils # (Manual) Basophils # (Manual) PT INR Fibrinogen dRVVT Confirm Interp Factor V Activity POC ABG pH POC ABG pCO2 POC ABG pO2 ABG pO2 ABG HCO3 ABG Base Excess ABG Hemoglobin Oxyhemoglobin Sodium Potassium Chloride Carbon Dioxide BUN Creatinine Glucose POC Glucose 141 H 125 H 130 H Lactic Acid Calcium Ionized Calcium Phosphorus Magnesium Direct Bilirubin AST ALT Alkaline Phosphatase Lactate Dehydrogenase Troponin T C-Reactive Protein Total Protein Albumin Prealbumin Triglycerides Cholesterol LDL Cholesterol Direct HDL Cholesterol 25-OH Vitamin D Total PTH Intact Urine pH Urine WBC (Auto) Urine Creatinine Urine Total Protein Fluid Total Protein Vancomycin Trough Rheumatoid Factor Complement C4 Miscellaneous Test Crossmatch 11/07/16 11/07/16 11/07/16 06:30 06:30 09:37 WBC RBC 2.18 L Hgb 6.3 L Hct 19.7 L* MCV MCH MCHC RDW 16.8 H Plt Count Lymph % (Auto) [place] % (Auto) 10.0 H Lymph # [place] # 1.0 H Baso # Seg Neutrophils % Seg Neuts % (Manual) Lymphocytes % (Manual) Monocytes % (Manual) Eosinophils % (Manual) Basophils % (Manual) Nucleated RBC % Seg Neutrophils # Seg Neutrophils # Man Lymphocytes # (Manual) Monocytes # (Manual) Eosinophils # (Manual) Basophils # (Manual) PT INR Fibrinogen dRVVT Confirm Interp Factor V Activity POC ABG pH POC ABG pCO2 POC ABG pO2 ABG pO2 ABG HCO3 ABG Base Excess ABG Hemoglobin Oxyhemoglobin Sodium 135 L Potassium Chloride 95.6 L Carbon Dioxide BUN 70 H Creatinine 2.0 H Glucose 126 H POC Glucose Lactic Acid Calcium Ionized Calcium Phosphorus Magnesium Direct Bilirubin AST ALT Alkaline Phosphatase Lactate Dehydrogenase Troponin T C-Reactive Protein Total Protein Albumin Prealbumin Triglycerides Cholesterol LDL Cholesterol Direct HDL Cholesterol 25-OH Vitamin D Total PTH Intact Urine pH Urine WBC (Auto) Urine Creatinine Urine Total Protein Fluid Total Protein Vancomycin Trough Rheumatoid Factor Complement C4 Miscellaneous Test Crossmatch See Detail 11/07/16 11/07/16 11/07/16 12:52 18:51 21:26 WBC RBC Hgb Hct MCV MCH MCHC RDW Plt Count Lymph % (Auto) [place] % (Auto) Lymph # [place] # Baso # Seg Neutrophils % Seg Neuts % (Manual) Lymphocytes % (Manual) Monocytes % (Manual) Eosinophils % (Manual) Basophils % (Manual) Nucleated RBC % Seg Neutrophils # Seg Neutrophils # Man Lymphocytes # (Manual) Monocytes # (Manual) Eosinophils # (Manual) Basophils # (Manual) PT INR Fibrinogen dRVVT Confirm Interp Factor V Activity POC ABG pH 7.523 H POC ABG pCO2 34.6 L POC ABG pO2 53 L ABG pO2 ABG HCO3 ABG Base Excess ABG Hemoglobin Oxyhemoglobin Sodium Potassium Chloride Carbon Dioxide BUN Creatinine Glucose POC Glucose 142 H 155 H Lactic Acid Calcium Ionized Calcium Phosphorus Magnesium Direct Bilirubin AST ALT Alkaline Phosphatase Lactate Dehydrogenase Troponin T C-Reactive Protein Total Protein Albumin Prealbumin Triglycerides Cholesterol LDL Cholesterol Direct HDL Cholesterol 25-OH Vitamin D Total PTH Intact Urine pH Urine WBC (Auto) Urine Creatinine Urine Total Protein Fluid Total Protein Vancomycin Trough Rheumatoid Factor Complement C4 Miscellaneous Test Crossmatch 11/07/16 11/08/16 11/08/16 21:34 13:03 23:37 WBC RBC 2.63 L Hgb 7.7 L Hct 22.7 L MCV MCH MCHC RDW 17.0 H Plt Count Lymph % (Auto) [place] % (Auto) Lymph # [place] # Baso # Seg Neutrophils % Seg Neuts % (Manual) Lymphocytes % (Manual) Monocytes % (Manual) Eosinophils % (Manual) Basophils % (Manual) Nucleated RBC % Seg Neutrophils # Seg Neutrophils # Man Lymphocytes # (Manual) Monocytes # (Manual) Eosinophils # (Manual) Basophils # (Manual) PT INR Fibrinogen dRVVT Confirm Interp Factor V Activity POC ABG pH 7.478 H POC ABG pCO2 34.0 L POC ABG pO2 50 L ABG pO2 ABG HCO3 ABG Base Excess ABG Hemoglobin Oxyhemoglobin Sodium Potassium Chloride Carbon Dioxide BUN Creatinine Glucose POC Glucose 113 H Lactic Acid Calcium Ionized Calcium Phosphorus Magnesium Direct Bilirubin AST ALT Alkaline Phosphatase Lactate Dehydrogenase Troponin T C-Reactive Protein Total Protein Albumin Prealbumin Triglycerides Cholesterol LDL Cholesterol Direct HDL Cholesterol 25-OH Vitamin D Total PTH Intact Urine pH Urine WBC (Auto) Urine Creatinine Urine Total Protein Fluid Total Protein Vancomycin Trough Rheumatoid Factor Complement C4 Miscellaneous Test Crossmatch 11/09/16 11/09/16 11/09/16 04:35 10:15 18:21 WBC RBC 2.68 L Hgb 7.8 L Hct 23.3 L MCV MCH MCHC RDW 17.0 H Plt Count Lymph % (Auto) [place] % (Auto) 12.1 H Lymph # [place] # 1.1 H Baso # Seg Neutrophils % Seg Neuts % (Manual) Lymphocytes % (Manual) Monocytes % (Manual) Eosinophils % (Manual) Basophils % (Manual) Nucleated RBC % Seg Neutrophils # Seg Neutrophils # Man Lymphocytes # (Manual) Monocytes # (Manual) Eosinophils # (Manual) Basophils # (Manual) PT INR Fibrinogen dRVVT Confirm Interp Factor V Activity POC ABG pH POC ABG pCO2 POC ABG pO2 ABG pO2 ABG HCO3 ABG Base Excess ABG Hemoglobin Oxyhemoglobin Sodium Potassium Chloride Carbon Dioxide BUN 51 H Creatinine 1.8 H Glucose POC Glucose 60 L Lactic Acid Calcium 8.3 L Ionized Calcium Phosphorus Magnesium Direct Bilirubin AST ALT Alkaline Phosphatase Lactate Dehydrogenase Troponin T C-Reactive Protein Total Protein Albumin Prealbumin Triglycerides Cholesterol LDL Cholesterol Direct HDL Cholesterol 25-OH Vitamin D Total PTH Intact Urine pH Urine WBC (Auto) Urine Creatinine Urine Total Protein Fluid Total Protein Vancomycin Trough Rheumatoid Factor Complement C4 Miscellaneous Test Crossmatch 11/09/16 11/10/16 11/10/16 18:55 07:00 11:51 WBC RBC Hgb Hct MCV MCH MCHC RDW Plt Count Lymph % (Auto) [place] % (Auto) Lymph # [place] # Baso # Seg Neutrophils % Seg Neuts % (Manual) Lymphocytes % (Manual) Monocytes % (Manual) Eosinophils % (Manual) Basophils % (Manual) Nucleated RBC % Seg Neutrophils # Seg Neutrophils # Man Lymphocytes # (Manual) Monocytes # (Manual) Eosinophils # (Manual) Basophils # (Manual) PT INR Fibrinogen dRVVT Confirm Interp Factor V Activity POC ABG pH POC ABG pCO2 POC ABG pO2 ABG pO2 ABG HCO3 ABG Base Excess ABG Hemoglobin Oxyhemoglobin Sodium Potassium 3.0 L D Chloride 97.4 L Carbon Dioxide BUN 28 H Creatinine 1.3 H Glucose POC Glucose 68 L 120 H Lactic Acid Calcium 7.8 L Ionized Calcium Phosphorus Magnesium Direct Bilirubin AST ALT Alkaline Phosphatase Lactate Dehydrogenase Troponin T C-Reactive Protein Total Protein Albumin Prealbumin Triglycerides Cholesterol LDL Cholesterol Direct HDL Cholesterol 25-OH Vitamin D Total PTH Intact Urine pH Urine WBC (Auto) Urine Creatinine Urine Total Protein Fluid Total Protein Vancomycin Trough Rheumatoid Factor Complement C4 Miscellaneous Test Crossmatch 11/10/16 11/11/16 11/11/16 14:20 06:59 06:59 WBC RBC 2.81 L Hgb 8.1 L Hct 24.4 L MCV MCH MCHC RDW 16.4 H Plt Count Lymph % (Auto) [place] % (Auto) 10.8 H Lymph # [place] # 1.0 H Baso # Seg Neutrophils % Seg Neuts % (Manual) Lymphocytes % (Manual) Monocytes % (Manual) Eosinophils % (Manual) Basophils % (Manual) Nucleated RBC % Seg Neutrophils # Seg Neutrophils # Man Lymphocytes # (Manual) Monocytes # (Manual) Eosinophils # (Manual) Basophils # (Manual) PT INR Fibrinogen dRVVT Confirm Interp Factor V Activity POC ABG pH POC ABG pCO2 POC ABG pO2 ABG pO2 ABG HCO3 ABG Base Excess ABG Hemoglobin Oxyhemoglobin Sodium Potassium Chloride Carbon Dioxide BUN Creatinine Glucose POC Glucose Lactic Acid Calcium Ionized Calcium Phosphorus Magnesium Direct Bilirubin AST ALT Alkaline Phosphatase Lactate Dehydrogenase 196 H Troponin T C-Reactive Protein Total Protein 6.1 L Albumin Prealbumin Triglycerides Cholesterol LDL Cholesterol Direct HDL Cholesterol 25-OH Vitamin D Total PTH Intact Urine pH Urine WBC (Auto) Urine Creatinine Urine Total Protein Fluid Total Protein < 3.0 L Vancomycin Trough Rheumatoid Factor Complement C4 Miscellaneous Test Crossmatch 11/11/16 11/11/16 11/12/16 06:59 09:50 04:00 WBC RBC Hgb Hct MCV MCH MCHC RDW Plt Count Lymph % (Auto) [place] % (Auto) Lymph # [place] # Baso # Seg Neutrophils % Seg Neuts % (Manual) Lymphocytes % (Manual) Monocytes % (Manual) Eosinophils % (Manual) Basophils % (Manual) Nucleated RBC % Seg Neutrophils # Seg Neutrophils # Man Lymphocytes # (Manual) Monocytes # (Manual) Eosinophils # (Manual) Basophils # (Manual) PT INR 1.18 H Fibrinogen dRVVT Confirm Interp Factor V Activity POC ABG pH POC ABG pCO2 POC ABG pO2 ABG pO2 ABG HCO3 ABG Base Excess ABG Hemoglobin Oxyhemoglobin Sodium 136 L 133 L Potassium Chloride 96.1 L 94.8 L Carbon Dioxide 21 L BUN 37 H 42 H Creatinine 1.8 H 2.0 H Glucose POC Glucose Lactic Acid Calcium Ionized Calcium Phosphorus Magnesium Direct Bilirubin AST ALT Alkaline Phosphatase Lactate Dehydrogenase Troponin T C-Reactive Protein Total Protein Albumin Prealbumin Triglycerides Cholesterol LDL Cholesterol Direct HDL Cholesterol 25-OH Vitamin D Total PTH Intact Urine pH Urine WBC (Auto) Urine Creatinine Urine Total Protein Fluid Total Protein Vancomycin Trough Rheumatoid Factor Complement C4 Miscellaneous Test Crossmatch 11/12/16 11/12/16 11/13/16 04:00 23:55 05:53 WBC RBC Hgb 8.9 L Hct 27.2 L MCV MCH MCHC RDW Plt Count Lymph % (Auto) [place] % (Auto) Lymph # [place] # Baso # Seg Neutrophils % Seg Neuts % (Manual) Lymphocytes % (Manual) Monocytes % (Manual) Eosinophils % (Manual) Basophils % (Manual) Nucleated RBC % Seg Neutrophils # Seg Neutrophils # Man Lymphocytes # (Manual) Monocytes # (Manual) Eosinophils # (Manual) Basophils # (Manual) PT INR Fibrinogen dRVVT Confirm Interp Factor V Activity POC ABG pH POC ABG pCO2 POC ABG pO2 ABG pO2 ABG HCO3 ABG Base Excess ABG Hemoglobin Oxyhemoglobin Sodium Potassium Chloride Carbon Dioxide BUN Creatinine Glucose POC Glucose 132 H 120 H Lactic Acid Calcium Ionized Calcium Phosphorus Magnesium Direct Bilirubin AST ALT Alkaline Phosphatase Lactate Dehydrogenase Troponin T C-Reactive Protein Total Protein Albumin Prealbumin Triglycerides Cholesterol LDL Cholesterol Direct HDL Cholesterol 25-OH Vitamin D Total PTH Intact Urine pH Urine WBC (Auto) Urine Creatinine Urine Total Protein Fluid Total Protein Vancomycin Trough Rheumatoid Factor Complement C4 Miscellaneous Test Crossmatch 11/13/16 11/13/16 11/13/16 11:43 17:09 23:41 WBC RBC Hgb Hct MCV MCH MCHC RDW Plt Count Lymph % (Auto) [place] % (Auto) Lymph # [place] # Baso # Seg Neutrophils % Seg Neuts % (Manual) Lymphocytes % (Manual) Monocytes % (Manual) Eosinophils % (Manual) Basophils % (Manual) Nucleated RBC % Seg Neutrophils # Seg Neutrophils # Man Lymphocytes # (Manual) Monocytes # (Manual) Eosinophils # (Manual) Basophils # (Manual) PT INR Fibrinogen dRVVT Confirm Interp Factor V Activity POC ABG pH POC ABG pCO2 POC ABG pO2 ABG pO2 ABG HCO3 ABG Base Excess ABG Hemoglobin Oxyhemoglobin Sodium Potassium Chloride Carbon Dioxide BUN Creatinine Glucose POC Glucose 114 H 113 H 108 H Lactic Acid Calcium Ionized Calcium Phosphorus Magnesium Direct Bilirubin AST ALT Alkaline Phosphatase Lactate Dehydrogenase Troponin T C-Reactive Protein Total Protein Albumin Prealbumin Triglycerides Cholesterol LDL Cholesterol Direct HDL Cholesterol 25-OH Vitamin D Total PTH Intact Urine pH Urine WBC (Auto) Urine Creatinine Urine Total Protein Fluid Total Protein Vancomycin Trough Rheumatoid Factor Complement C4 Miscellaneous Test Crossmatch 11/13/16 11/15/16 11/15/16 Unknown 00:37 03:30 WBC 11.2 H RBC 2.72 L Hgb 7.6 L Hct 23.4 L MCV MCH MCHC RDW 16.5 H Plt Count Lymph % (Auto) [place] % (Auto) Lymph # [place] # Baso # Seg Neutrophils % Seg Neuts % (Manual) Lymphocytes % (Manual) Monocytes % (Manual) Eosinophils % (Manual) Basophils % (Manual) Nucleated RBC % Seg Neutrophils # Seg Neutrophils # Man Lymphocytes # (Manual) Monocytes # (Manual) Eosinophils # (Manual) Basophils # (Manual) PT INR Fibrinogen dRVVT Confirm Interp Factor V Activity POC ABG pH POC ABG pCO2 POC ABG pO2 ABG pO2 ABG HCO3 ABG Base Excess ABG Hemoglobin Oxyhemoglobin Sodium 135 L Potassium Chloride 95.2 L Carbon Dioxide BUN 52 H Creatinine 2.2 H Glucose POC Glucose 108 H Lactic Acid Calcium Ionized Calcium Phosphorus Magnesium Direct Bilirubin AST ALT Alkaline Phosphatase Lactate Dehydrogenase Troponin T C-Reactive Protein Total Protein Albumin Prealbumin Triglycerides Cholesterol LDL Cholesterol Direct HDL Cholesterol 25-OH Vitamin D Total PTH Intact Urine pH Urine WBC (Auto) Urine Creatinine Urine Total Protein Fluid Total Protein Vancomycin Trough Rheumatoid Factor Complement C4 Miscellaneous Test Crossmatch 11/15/16 11/15/16 11/15/16 03:30 05:04 11:50 WBC RBC Hgb Hct MCV MCH MCHC RDW Plt Count Lymph % (Auto) [place] % (Auto) Lymph # [place] # Baso # Seg Neutrophils % Seg Neuts % (Manual) Lymphocytes % (Manual) Monocytes % (Manual) Eosinophils % (Manual) Basophils % (Manual) Nucleated RBC % Seg Neutrophils # Seg Neutrophils # Man Lymphocytes # (Manual) Monocytes # (Manual) Eosinophils # (Manual) Basophils # (Manual) PT INR Fibrinogen dRVVT Confirm Interp Factor V Activity POC ABG pH POC ABG pCO2 POC ABG pO2 ABG pO2 ABG HCO3 ABG Base Excess ABG Hemoglobin Oxyhemoglobin Sodium Potassium 3.4 L Chloride Carbon Dioxide BUN 25 H Creatinine 1.5 H Glucose 103 H POC Glucose 121 H 144 H Lactic Acid Calcium Ionized Calcium Phosphorus Magnesium Direct Bilirubin AST ALT Alkaline Phosphatase Lactate Dehydrogenase Troponin T C-Reactive Protein Total Protein Albumin Prealbumin Triglycerides Cholesterol LDL Cholesterol Direct HDL Cholesterol 25-OH Vitamin D Total PTH Intact Urine pH Urine WBC (Auto) Urine Creatinine Urine Total Protein Fluid Total Protein Vancomycin Trough Rheumatoid Factor Complement C4 Miscellaneous Test Crossmatch 11/15/16 11/15/16 11/16/16 21:28 23:20 11:44 WBC RBC Hgb Hct MCV MCH MCHC RDW Plt Count Lymph % (Auto) [place] % (Auto) Lymph # [place] # Baso # Seg Neutrophils % Seg Neuts % (Manual) Lymphocytes % (Manual) Monocytes % (Manual) Eosinophils % (Manual) Basophils % (Manual) Nucleated RBC % Seg Neutrophils # Seg Neutrophils # Man Lymphocytes # (Manual) Monocytes # (Manual) Eosinophils # (Manual) Basophils # (Manual) PT INR Fibrinogen dRVVT Confirm Interp Factor V Activity POC ABG pH 7.462 H POC ABG pCO2 POC ABG pO2 71 L ABG pO2 ABG HCO3 ABG Base Excess ABG Hemoglobin Oxyhemoglobin Sodium Potassium Chloride Carbon Dioxide BUN Creatinine Glucose POC Glucose 116 H 133 H Lactic Acid Calcium Ionized Calcium Phosphorus Magnesium Direct Bilirubin AST ALT Alkaline Phosphatase Lactate Dehydrogenase Troponin T C-Reactive Protein Total Protein Albumin Prealbumin Triglycerides Cholesterol LDL Cholesterol Direct HDL Cholesterol 25-OH Vitamin D Total PTH Intact Urine pH Urine WBC (Auto) Urine Creatinine Urine Total Protein Fluid Total Protein Vancomycin Trough Rheumatoid Factor Complement C4 Miscellaneous Test Crossmatch 11/16/16 11/16/16 11/16/16 12:20 17:05 23:35 WBC 11.7 H RBC 2.73 L Hgb 7.6 L Hct 23.7 L MCV MCH MCHC RDW 16.6 H Plt Count Lymph % (Auto) [place] % (Auto) Lymph # [place] # Baso # Seg Neutrophils % Seg Neuts % (Manual) Lymphocytes % (Manual) Monocytes % (Manual) Eosinophils % (Manual) Basophils % (Manual) Nucleated RBC % Seg Neutrophils # Seg Neutrophils # Man Lymphocytes # (Manual) Monocytes # (Manual) Eosinophils # (Manual) Basophils # (Manual) PT INR Fibrinogen dRVVT Confirm Interp Factor V Activity POC ABG pH POC ABG pCO2 POC ABG pO2 ABG pO2 ABG HCO3 ABG Base Excess ABG Hemoglobin Oxyhemoglobin Sodium Potassium Chloride Carbon Dioxide BUN Creatinine Glucose POC Glucose 154 H 125 H Lactic Acid Calcium Ionized Calcium Phosphorus Magnesium Direct Bilirubin AST ALT Alkaline Phosphatase Lactate Dehydrogenase Troponin T C-Reactive Protein Total Protein Albumin Prealbumin Triglycerides Cholesterol LDL Cholesterol Direct HDL Cholesterol 25-OH Vitamin D Total PTH Intact Urine pH Urine WBC (Auto) Urine Creatinine Urine Total Protein Fluid Total Protein Vancomycin Trough Rheumatoid Factor Complement C4 Miscellaneous Test Crossmatch 11/17/16 11/17/16 11/17/16 03:20 03:20 03:20 WBC RBC 2.55 L Hgb 7.3 L Hct 21.9 L MCV MCH MCHC RDW 16.6 H Plt Count Lymph % (Auto) [place] % (Auto) 11.5 H Lymph # [place] # 1.1 H Baso # Seg Neutrophils % Seg Neuts % (Manual) Lymphocytes % (Manual) Monocytes % (Manual) Eosinophils % (Manual) Basophils % (Manual) Nucleated RBC % Seg Neutrophils # Seg Neutrophils # Man Lymphocytes # (Manual) Monocytes # (Manual) Eosinophils # (Manual) Basophils # (Manual) PT 16.8 H INR 1.37 H Fibrinogen dRVVT Confirm Interp Factor V Activity POC ABG pH POC ABG pCO2 POC ABG pO2 ABG pO2 ABG HCO3 ABG Base Excess ABG Hemoglobin Oxyhemoglobin Sodium Potassium 3.5 L Chloride Carbon Dioxide BUN 21 H Creatinine Glucose POC Glucose Lactic Acid Calcium 7.9 L Ionized Calcium Phosphorus Magnesium Direct Bilirubin AST ALT Alkaline Phosphatase Lactate Dehydrogenase Troponin T C-Reactive Protein Total Protein Albumin Prealbumin Triglycerides Cholesterol LDL Cholesterol Direct HDL Cholesterol 25-OH Vitamin D Total PTH Intact Urine pH Urine WBC (Auto) Urine Creatinine Urine Total Protein Fluid Total Protein Vancomycin Trough Rheumatoid Factor Complement C4 Miscellaneous Test Crossmatch 11/17/16 11/17/16 11/17/16 06:34 11:21 21:22 WBC RBC Hgb Hct MCV MCH MCHC RDW Plt Count Lymph % (Auto) [place] % (Auto) Lymph # [place] # Baso # Seg Neutrophils % Seg Neuts % (Manual) Lymphocytes % (Manual) Monocytes % (Manual) Eosinophils % (Manual) Basophils % (Manual) Nucleated RBC % Seg Neutrophils # Seg Neutrophils # Man Lymphocytes # (Manual) Monocytes # (Manual) Eosinophils # (Manual) Basophils # (Manual) PT INR Fibrinogen dRVVT Confirm Interp Factor V Activity POC ABG pH 7.467 H POC ABG pCO2 POC ABG pO2 73 L ABG pO2 ABG HCO3 ABG Base Excess ABG Hemoglobin Oxyhemoglobin Sodium Potassium Chloride Carbon Dioxide BUN Creatinine Glucose POC Glucose 121 H 119 H Lactic Acid Calcium Ionized Calcium Phosphorus Magnesium Direct Bilirubin AST ALT Alkaline Phosphatase Lactate Dehydrogenase Troponin T C-Reactive Protein Total Protein Albumin Prealbumin Triglycerides Cholesterol LDL Cholesterol Direct HDL Cholesterol 25-OH Vitamin D Total PTH Intact Urine pH Urine WBC (Auto) Urine Creatinine Urine Total Protein Fluid Total Protein Vancomycin Trough Rheumatoid Factor Complement C4 Miscellaneous Test Crossmatch 11/18/16 11/18/16 11/19/16 12:16 17:19 00:00 WBC RBC Hgb Hct MCV MCH MCHC RDW Plt Count Lymph % (Auto) [place] % (Auto) Lymph # [place] # Baso # Seg Neutrophils % Seg Neuts % (Manual) Lymphocytes % (Manual) Monocytes % (Manual) Eosinophils % (Manual) Basophils % (Manual) Nucleated RBC % Seg Neutrophils # Seg Neutrophils # Man Lymphocytes # (Manual) Monocytes # (Manual) Eosinophils # (Manual) Basophils # (Manual) PT INR Fibrinogen dRVVT Confirm Interp Factor V Activity POC ABG pH POC ABG pCO2 POC ABG pO2 ABG pO2 ABG HCO3 ABG Base Excess ABG Hemoglobin Oxyhemoglobin Sodium Potassium Chloride Carbon Dioxide BUN Creatinine Glucose POC Glucose 124 H 162 H 139 H Lactic Acid Calcium Ionized Calcium Phosphorus Magnesium Direct Bilirubin AST ALT Alkaline Phosphatase Lactate Dehydrogenase Troponin T C-Reactive Protein Total Protein Albumin Prealbumin Triglycerides Cholesterol LDL Cholesterol Direct HDL Cholesterol 25-OH Vitamin D Total PTH Intact Urine pH Urine WBC (Auto) Urine Creatinine Urine Total Protein Fluid Total Protein Vancomycin Trough Rheumatoid Factor Complement C4 Miscellaneous Test Crossmatch 11/19/16 11/19/16 11/20/16 05:00 12:43 00:40 WBC RBC Hgb Hct MCV MCH MCHC RDW Plt Count Lymph % (Auto) [place] % (Auto) Lymph # [place] # Baso # Seg Neutrophils % Seg Neuts % (Manual) Lymphocytes % (Manual) Monocytes % (Manual) Eosinophils % (Manual) Basophils % (Manual) Nucleated RBC % Seg Neutrophils # Seg Neutrophils # Man Lymphocytes # (Manual) Monocytes # (Manual) Eosinophils # (Manual) Basophils # (Manual) PT INR Fibrinogen dRVVT Confirm Interp Factor V Activity POC ABG pH POC ABG pCO2 POC ABG pO2 ABG pO2 ABG HCO3 ABG Base Excess ABG Hemoglobin Oxyhemoglobin Sodium Potassium Chloride Carbon Dioxide BUN Creatinine Glucose POC Glucose 110 H 125 H 136 H Lactic Acid Calcium Ionized Calcium Phosphorus Magnesium Direct Bilirubin AST ALT Alkaline Phosphatase Lactate Dehydrogenase Troponin T C-Reactive Protein Total Protein Albumin Prealbumin Triglycerides Cholesterol LDL Cholesterol Direct HDL Cholesterol 25-OH Vitamin D Total PTH Intact Urine pH Urine WBC (Auto) Urine Creatinine Urine Total Protein Fluid Total Protein Vancomycin Trough Rheumatoid Factor Complement C4 Miscellaneous Test Crossmatch 11/20/16 11/20/16 11/20/16 05:00 05:00 05:51 WBC 13.1 H RBC 2.74 L Hgb 7.7 L Hct 23.6 L MCV MCH MCHC RDW 16.9 H Plt Count Lymph % (Auto) [place] % (Auto) 10.8 H Lymph # [place] # 1.4 H Baso # Seg Neutrophils % Seg Neuts % (Manual) Lymphocytes % (Manual) Monocytes % (Manual) Eosinophils % (Manual) Basophils % (Manual) Nucleated RBC % Seg Neutrophils # 7.9 H Seg Neutrophils # Man Lymphocytes # (Manual) Monocytes # (Manual) Eosinophils # (Manual) Basophils # (Manual) PT INR Fibrinogen dRVVT Confirm Interp Factor V Activity POC ABG pH POC ABG pCO2 POC ABG pO2 ABG pO2 ABG HCO3 ABG Base Excess ABG Hemoglobin Oxyhemoglobin Sodium Potassium Chloride Carbon Dioxide BUN 31 H Creatinine 1.8 H Glucose 129 H POC Glucose 133 H Lactic Acid Calcium Ionized Calcium Phosphorus Magnesium Direct Bilirubin AST ALT Alkaline Phosphatase Lactate Dehydrogenase Troponin T C-Reactive Protein Total Protein Albumin Prealbumin Triglycerides Cholesterol LDL Cholesterol Direct HDL Cholesterol 25-OH Vitamin D Total PTH Intact Urine pH Urine WBC (Auto) Urine Creatinine Urine Total Protein Fluid Total Protein Vancomycin Trough Rheumatoid Factor Complement C4 Miscellaneous Test Crossmatch 11/20/16 11/20/16 11/21/16 12:40 18:10 01:20 WBC RBC Hgb Hct MCV MCH MCHC RDW Plt Count Lymph % (Auto) [place] % (Auto) Lymph # [place] # Baso # Seg Neutrophils % Seg Neuts % (Manual) Lymphocytes % (Manual) Monocytes % (Manual) Eosinophils % (Manual) Basophils % (Manual) Nucleated RBC % Seg Neutrophils # Seg Neutrophils # Man Lymphocytes # (Manual) Monocytes # (Manual) Eosinophils # (Manual) Basophils # (Manual) PT INR Fibrinogen dRVVT Confirm Interp Factor V Activity POC ABG pH POC ABG pCO2 POC ABG pO2 ABG pO2 ABG HCO3 ABG Base Excess ABG Hemoglobin Oxyhemoglobin Sodium Potassium Chloride Carbon Dioxide BUN Creatinine Glucose POC Glucose 134 H 138 H 136 H Lactic Acid Calcium Ionized Calcium Phosphorus Magnesium Direct Bilirubin AST ALT Alkaline Phosphatase Lactate Dehydrogenase Troponin T C-Reactive Protein Total Protein Albumin Prealbumin Triglycerides Cholesterol LDL Cholesterol Direct HDL Cholesterol 25-OH Vitamin D Total PTH Intact Urine pH Urine WBC (Auto) Urine Creatinine Urine Total Protein Fluid Total Protein Vancomycin Trough Rheumatoid Factor Complement C4 Miscellaneous Test Crossmatch 11/21/16 11/21/16 11/21/16 07:04 07:45 07:45 WBC 22.0 H RBC 2.91 L Hgb 8.2 L Hct 25.4 L MCV MCH MCHC RDW 17.1 H Plt Count Lymph % (Auto) [place] % (Auto) Lymph # [place] # Baso # Seg Neutrophils % Seg Neuts % (Manual) Lymphocytes % (Manual) 8.0 L Monocytes % (Manual) Eosinophils % (Manual) Basophils % (Manual) Nucleated RBC % Seg Neutrophils # Seg Neutrophils # Man 14.7 H Lymphocytes # (Manual) Monocytes # (Manual) 1.1 H Eosinophils # (Manual) Basophils # (Manual) PT INR Fibrinogen dRVVT Confirm Interp Factor V Activity POC ABG pH POC ABG pCO2 POC ABG pO2 ABG pO2 ABG HCO3 ABG Base Excess ABG Hemoglobin Oxyhemoglobin Sodium Potassium Chloride Carbon Dioxide BUN 42 H Creatinine 2.0 H Glucose POC Glucose 108 H Lactic Acid Calcium Ionized Calcium Phosphorus Magnesium Direct Bilirubin AST ALT Alkaline Phosphatase Lactate Dehydrogenase Troponin T C-Reactive Protein Total Protein Albumin Prealbumin Triglycerides Cholesterol LDL Cholesterol Direct HDL Cholesterol 25-OH Vitamin D Total PTH Intact Urine pH Urine WBC (Auto) Urine Creatinine Urine Total Protein Fluid Total Protein Vancomycin Trough Rheumatoid Factor Complement C4 Miscellaneous Test Crossmatch 11/21/16 11/21/16 11/21/16 08:38 10:09 11:20 WBC RBC Hgb Hct MCV MCH MCHC RDW Plt Count Lymph % (Auto) [place] % (Auto) Lymph # [place] # Baso # Seg Neutrophils % Seg Neuts % (Manual) Lymphocytes % (Manual) Monocytes % (Manual) Eosinophils % (Manual) Basophils % (Manual) Nucleated RBC % Seg Neutrophils # Seg Neutrophils # Man Lymphocytes # (Manual) Monocytes # (Manual) Eosinophils # (Manual) Basophils # (Manual) PT INR Fibrinogen dRVVT Confirm Interp Factor V Activity POC ABG pH 7.346 L POC ABG pCO2 34.4 L POC ABG pO2 314 H ABG pO2 ABG HCO3 ABG Base Excess ABG Hemoglobin Oxyhemoglobin Sodium Potassium Chloride Carbon Dioxide BUN Creatinine Glucose POC Glucose 195 H 153 H Lactic Acid Calcium Ionized Calcium Phosphorus Magnesium Direct Bilirubin AST ALT Alkaline Phosphatase Lactate Dehydrogenase Troponin T C-Reactive Protein Total Protein Albumin Prealbumin Triglycerides Cholesterol LDL Cholesterol Direct HDL Cholesterol 25-OH Vitamin D Total PTH Intact Urine pH Urine WBC (Auto) Urine Creatinine Urine Total Protein Fluid Total Protein Vancomycin Trough Rheumatoid Factor Complement C4 Miscellaneous Test Crossmatch 11/21/16 11/22/16 11/22/16 23:37 04:48 05:00 WBC 29.7 H RBC 2.73 L Hgb 7.5 L Hct 24.2 L MCV MCH 27 L MCHC RDW 17.4 H Plt Count Lymph % (Auto) [place] % (Auto) Lymph # [place] # Baso # Seg Neutrophils % Seg Neuts % (Manual) Lymphocytes % (Manual) 7.0 L Monocytes % (Manual) Eosinophils % (Manual) Basophils % (Manual) Nucleated RBC % Seg Neutrophils # Seg Neutrophils # Man 15.4 H Lymphocytes # (Manual) Monocytes # (Manual) Eosinophils # (Manual) Basophils # (Manual) PT INR Fibrinogen dRVVT Confirm Interp Factor V Activity POC ABG pH POC ABG pCO2 24.6 L POC ABG pO2 189 H ABG pO2 ABG HCO3 ABG Base Excess ABG Hemoglobin Oxyhemoglobin Sodium Potassium Chloride Carbon Dioxide BUN Creatinine Glucose POC Glucose 65 L Lactic Acid Calcium Ionized Calcium Phosphorus Magnesium Direct Bilirubin AST ALT Alkaline Phosphatase Lactate Dehydrogenase Troponin T C-Reactive Protein Total Protein Albumin Prealbumin Triglycerides Cholesterol LDL Cholesterol Direct HDL Cholesterol 25-OH Vitamin D Total PTH Intact Urine pH Urine WBC (Auto) Urine Creatinine Urine Total Protein Fluid Total Protein Vancomycin Trough Rheumatoid Factor Complement C4 Miscellaneous Test Crossmatch 11/22/16 11/23/16 11/23/16 05:00 03:44 04:06 WBC RBC 2.52 L Hgb 7.2 L Hct 21.5 L MCV MCH MCHC RDW 17.1 H Plt Count Lymph % (Auto) [place] % (Auto) 12.4 H Lymph # [place] # 1.4 H Baso # Seg Neutrophils % Seg Neuts % (Manual) Lymphocytes % (Manual) Monocytes % (Manual) Eosinophils % (Manual) Basophils % (Manual) Nucleated RBC % Seg Neutrophils # Seg Neutrophils # Man Lymphocytes # (Manual) Monocytes # (Manual) Eosinophils # (Manual) Basophils # (Manual) PT INR Fibrinogen dRVVT Confirm Interp Factor V Activity POC ABG pH 7.493 H POC ABG pCO2 29.5 L POC ABG pO2 49 L ABG pO2 ABG HCO3 ABG Base Excess ABG Hemoglobin Oxyhemoglobin Sodium 134 L Potassium Chloride 95.9 L Carbon Dioxide 14 L D BUN 51 H Creatinine 2.6 H Glucose POC Glucose Lactic Acid Calcium Ionized Calcium Phosphorus Magnesium Direct Bilirubin AST ALT Alkaline Phosphatase Lactate Dehydrogenase Troponin T C-Reactive Protein Total Protein Albumin Prealbumin Triglycerides Cholesterol LDL Cholesterol Direct HDL Cholesterol 25-OH Vitamin D Total PTH Intact Urine pH Urine WBC (Auto) Urine Creatinine Urine Total Protein Fluid Total Protein Vancomycin Trough Rheumatoid Factor Complement C4 Miscellaneous Test Crossmatch 11/23/16 11/23/16 11/24/16 04:06 11:29 06:39 WBC RBC Hgb Hct MCV MCH MCHC RDW Plt Count Lymph % (Auto) [place] % (Auto) Lymph # [place] # Baso # Seg Neutrophils % Seg Neuts % (Manual) Lymphocytes % (Manual) Monocytes % (Manual) Eosinophils % (Manual) Basophils % (Manual) Nucleated RBC % Seg Neutrophils # Seg Neutrophils # Man Lymphocytes # (Manual) Monocytes # (Manual) Eosinophils # (Manual) Basophils # (Manual) PT INR Fibrinogen dRVVT Confirm Interp Factor V Activity POC ABG pH POC ABG pCO2 POC ABG pO2 ABG pO2 ABG HCO3 ABG Base Excess ABG Hemoglobin Oxyhemoglobin Sodium 136 L Potassium Chloride 95.2 L Carbon Dioxide BUN 60 H Creatinine 2.9 H Glucose POC Glucose 69 L 305 H Lactic Acid Calcium Ionized Calcium Phosphorus Magnesium 1.60 L Direct Bilirubin AST ALT Alkaline Phosphatase Lactate Dehydrogenase Troponin T C-Reactive Protein Total Protein Albumin Prealbumin Triglycerides Cholesterol LDL Cholesterol Direct HDL Cholesterol 25-OH Vitamin D Total PTH Intact Urine pH Urine WBC (Auto) Urine Creatinine Urine Total Protein Fluid Total Protein Vancomycin Trough Rheumatoid Factor Complement C4 Miscellaneous Test Crossmatch 11/24/16 11/24/16 11/24/16 06:43 08:08 08:08 WBC 11.2 H RBC 2.47 L Hgb 6.8 L Hct 20.6 L MCV MCH MCHC RDW 17.0 H Plt Count Lymph % (Auto) [place] % (Auto) 10.3 H Lymph # [place] # 1.2 H Baso # Seg Neutrophils % Seg Neuts % (Manual) Lymphocytes % (Manual) Monocytes % (Manual) Eosinophils % (Manual) Basophils % (Manual) Nucleated RBC % Seg Neutrophils # Seg Neutrophils # Man Lymphocytes # (Manual) Monocytes # (Manual) Eosinophils # (Manual) Basophils # (Manual) PT INR Fibrinogen dRVVT Confirm Interp Factor V Activity POC ABG pH POC ABG pCO2 POC ABG pO2 ABG pO2 ABG HCO3 ABG Base Excess ABG Hemoglobin Oxyhemoglobin Sodium 135 L Potassium Chloride 96.3 L Carbon Dioxide BUN 61 H Creatinine 3.1 H Glucose POC Glucose 62 L Lactic Acid Calcium 8.2 L Ionized Calcium Phosphorus Magnesium Direct Bilirubin AST ALT Alkaline Phosphatase Lactate Dehydrogenase Troponin T C-Reactive Protein Total Protein Albumin Prealbumin Triglycerides Cholesterol LDL Cholesterol Direct HDL Cholesterol 25-OH Vitamin D Total PTH Intact Urine pH Urine WBC (Auto) Urine Creatinine Urine Total Protein Fluid Total Protein Vancomycin Trough Rheumatoid Factor Complement C4 Miscellaneous Test Crossmatch 11/24/16 11/24/16 11/24/16 08:34 11:20 12:41 WBC RBC Hgb Hct MCV MCH MCHC RDW Plt Count Lymph % (Auto) [place] % (Auto) Lymph # [place] # Baso # Seg Neutrophils % Seg Neuts % (Manual) Lymphocytes % (Manual) Monocytes % (Manual) Eosinophils % (Manual) Basophils % (Manual) Nucleated RBC % Seg Neutrophils # Seg Neutrophils # Man Lymphocytes # (Manual) Monocytes # (Manual) Eosinophils # (Manual) Basophils # (Manual) PT INR Fibrinogen dRVVT Confirm Interp Factor V Activity POC ABG pH POC ABG pCO2 POC ABG pO2 ABG pO2 ABG HCO3 ABG Base Excess ABG Hemoglobin Oxyhemoglobin Sodium Potassium Chloride Carbon Dioxide BUN Creatinine Glucose POC Glucose 108 H Lactic Acid Calcium Ionized Calcium Phosphorus Magnesium 1.60 L Direct Bilirubin AST ALT Alkaline Phosphatase Lactate Dehydrogenase Troponin T C-Reactive Protein Total Protein Albumin Prealbumin Triglycerides Cholesterol LDL Cholesterol Direct HDL Cholesterol 25-OH Vitamin D Total PTH Intact Urine pH Urine WBC (Auto) Urine Creatinine Urine Total Protein Fluid Total Protein Vancomycin Trough Rheumatoid Factor Complement C4 Miscellaneous Test Crossmatch See Detail 11/25/16 11/25/16 11/25/16 00:03 04:42 04:42 WBC RBC 3.03 L Hgb 8.6 L Hct 25.3 L MCV MCH MCHC RDW 16.2 H Plt Count Lymph % (Auto) [place] % (Auto) 8.1 H Lymph # [place] # Baso # Seg Neutrophils % 71.3 H Seg Neuts % (Manual) Lymphocytes % (Manual) Monocytes % (Manual) Eosinophils % (Manual) Basophils % (Manual) Nucleated RBC % Seg Neutrophils # Seg Neutrophils # Man Lymphocytes # (Manual) Monocytes # (Manual) Eosinophils # (Manual) Basophils # (Manual) PT INR Fibrinogen dRVVT Confirm Interp Factor V Activity POC ABG pH POC ABG pCO2 POC ABG pO2 ABG pO2 ABG HCO3 ABG Base Excess ABG Hemoglobin Oxyhemoglobin Sodium Potassium Chloride Carbon Dioxide BUN 61 H Creatinine 3.0 H Glucose 102 H POC Glucose 113 H Lactic Acid Calcium 8.2 L Ionized Calcium Phosphorus Magnesium Direct Bilirubin AST ALT Alkaline Phosphatase 142 H Lactate Dehydrogenase Troponin T C-Reactive Protein Total Protein 5.7 L Albumin 1.5 L Prealbumin Triglycerides Cholesterol LDL Cholesterol Direct HDL Cholesterol 25-OH Vitamin D Total PTH Intact Urine pH Urine WBC (Auto) Urine Creatinine Urine Total Protein Fluid Total Protein Vancomycin Trough Rheumatoid Factor Complement C4 Miscellaneous Test Crossmatch 11/25/16 11/25/16 11/25/16 05:12 11:31 14:12 WBC RBC Hgb Hct MCV MCH MCHC RDW Plt Count Lymph % (Auto) [place] % (Auto) Lymph # [place] # Baso # Seg Neutrophils % Seg Neuts % (Manual) Lymphocytes % (Manual) Monocytes % (Manual) Eosinophils % (Manual) Basophils % (Manual) Nucleated RBC % Seg Neutrophils # Seg Neutrophils # Man Lymphocytes # (Manual) Monocytes # (Manual) Eosinophils # (Manual) Basophils # (Manual) PT INR Fibrinogen dRVVT Confirm Interp Factor V Activity POC ABG pH 7.487 H POC ABG pCO2 POC ABG pO2 153 H ABG pO2 ABG HCO3 ABG Base Excess ABG Hemoglobin Oxyhemoglobin Sodium Potassium Chloride Carbon Dioxide BUN Creatinine Glucose POC Glucose 131 H 140 H Lactic Acid Calcium Ionized Calcium Phosphorus Magnesium Direct Bilirubin AST ALT Alkaline Phosphatase Lactate Dehydrogenase Troponin T C-Reactive Protein Total Protein Albumin Prealbumin Triglycerides Cholesterol LDL Cholesterol Direct HDL Cholesterol 25-OH Vitamin D Total PTH Intact Urine pH Urine WBC (Auto) Urine Creatinine Urine Total Protein Fluid Total Protein Vancomycin Trough Rheumatoid Factor Complement C4 Miscellaneous Test Crossmatch 11/25/16 11/26/16 11/26/16 17:23 00:09 05:13 WBC RBC 2.94 L Hgb 8.4 L Hct 24.6 L MCV MCH MCHC RDW 16.4 H Plt Count Lymph % (Auto) [place] % (Auto) 12.3 H Lymph # [place] # 1.1 H Baso # Seg Neutrophils % Seg Neuts % (Manual) Lymphocytes % (Manual) Monocytes % (Manual) Eosinophils % (Manual) Basophils % (Manual) Nucleated RBC % Seg Neutrophils # Seg Neutrophils # Man Lymphocytes # (Manual) Monocytes # (Manual) Eosinophils # (Manual) Basophils # (Manual) PT INR Fibrinogen dRVVT Confirm Interp Factor V Activity POC ABG pH POC ABG pCO2 POC ABG pO2 ABG pO2 ABG HCO3 ABG Base Excess ABG Hemoglobin Oxyhemoglobin Sodium Potassium Chloride Carbon Dioxide BUN Creatinine Glucose POC Glucose 146 H 112 H Lactic Acid Calcium Ionized Calcium Phosphorus Magnesium Direct Bilirubin AST ALT Alkaline Phosphatase Lactate Dehydrogenase Troponin T C-Reactive Protein Total Protein Albumin Prealbumin Triglycerides Cholesterol LDL Cholesterol Direct HDL Cholesterol 25-OH Vitamin D Total PTH Intact Urine pH Urine WBC (Auto) Urine Creatinine Urine Total Protein Fluid Total Protein Vancomycin Trough Rheumatoid Factor Complement C4 Miscellaneous Test Crossmatch 11/26/16 11/26/16 11/26/16 05:13 05:28 11:53 WBC RBC Hgb Hct MCV MCH MCHC RDW Plt Count Lymph % (Auto) [place] % (Auto) Lymph # [place] # Baso # Seg Neutrophils % Seg Neuts % (Manual) Lymphocytes % (Manual) Monocytes % (Manual) Eosinophils % (Manual) Basophils % (Manual) Nucleated RBC % Seg Neutrophils # Seg Neutrophils # Man Lymphocytes # (Manual) Monocytes # (Manual) Eosinophils # (Manual) Basophils # (Manual) PT INR Fibrinogen dRVVT Confirm Interp Factor V Activity POC ABG pH POC ABG pCO2 POC ABG pO2 ABG pO2 ABG HCO3 ABG Base Excess ABG Hemoglobin Oxyhemoglobin Sodium Potassium Chloride 97.8 L Carbon Dioxide BUN 37 H Creatinine 2.0 H Glucose 109 H POC Glucose 117 H 111 H Lactic Acid Calcium 7.9 L Ionized Calcium Phosphorus 1.80 L D Magnesium Direct Bilirubin AST ALT Alkaline Phosphatase Lactate Dehydrogenase Troponin T C-Reactive Protein Total Protein Albumin Prealbumin Triglycerides Cholesterol LDL Cholesterol Direct HDL Cholesterol 25-OH Vitamin D Total PTH Intact Urine pH Urine WBC (Auto) Urine Creatinine Urine Total Protein Fluid Total Protein Vancomycin Trough Rheumatoid Factor Complement C4 Miscellaneous Test Crossmatch 11/26/16 11/27/16 11/27/16 17:14 04:50 06:02 WBC RBC Hgb Hct MCV MCH MCHC RDW Plt Count Lymph % (Auto) [place] % (Auto) Lymph # [place] # Baso # Seg Neutrophils % Seg Neuts % (Manual) Lymphocytes % (Manual) Monocytes % (Manual) Eosinophils % (Manual) Basophils % (Manual) Nucleated RBC % Seg Neutrophils # Seg Neutrophils # Man Lymphocytes # (Manual) Monocytes # (Manual) Eosinophils # (Manual) Basophils # (Manual) PT INR Fibrinogen dRVVT Confirm Interp Factor V Activity POC ABG pH POC ABG pCO2 POC ABG pO2 ABG pO2 75.2 L ABG HCO3 26.4 H ABG Base Excess ABG Hemoglobin 7.6 L Oxyhemoglobin 94.8 L Sodium Potassium Chloride Carbon Dioxide BUN 49 H Creatinine 2.3 H Glucose POC Glucose 115 H Lactic Acid Calcium Ionized Calcium Phosphorus 1.50 L Magnesium Direct Bilirubin AST ALT Alkaline Phosphatase Lactate Dehydrogenase Troponin T C-Reactive Protein Total Protein Albumin Prealbumin Triglycerides Cholesterol LDL Cholesterol Direct HDL Cholesterol 25-OH Vitamin D Total PTH Intact Urine pH Urine WBC (Auto) Urine Creatinine Urine Total Protein Fluid Total Protein Vancomycin Trough Rheumatoid Factor Complement C4 Miscellaneous Test Crossmatch 11/27/16 11/27/16 11/27/16 06:02 11:25 17:25 WBC 11.6 H RBC 2.75 L Hgb 7.6 L Hct 23.4 L MCV MCH MCHC RDW 16.5 H Plt Count Lymph % (Auto) [place] % (Auto) Lymph # [place] # Baso # Seg Neutrophils % Seg Neuts % (Manual) Lymphocytes % (Manual) Monocytes % (Manual) Eosinophils % (Manual) Basophils % (Manual) Nucleated RBC % Seg Neutrophils # Seg Neutrophils # Man Lymphocytes # (Manual) Monocytes # (Manual) Eosinophils # (Manual) Basophils # (Manual) PT INR Fibrinogen dRVVT Confirm Interp Factor V Activity POC ABG pH POC ABG pCO2 POC ABG pO2 ABG pO2 ABG HCO3 ABG Base Excess ABG Hemoglobin Oxyhemoglobin Sodium Potassium Chloride Carbon Dioxide BUN Creatinine Glucose POC Glucose 114 H 126 H Lactic Acid Calcium Ionized Calcium Phosphorus Magnesium Direct Bilirubin AST ALT Alkaline Phosphatase Lactate Dehydrogenase Troponin T C-Reactive Protein Total Protein Albumin Prealbumin Triglycerides Cholesterol LDL Cholesterol Direct HDL Cholesterol 25-OH Vitamin D Total PTH Intact Urine pH Urine WBC (Auto) Urine Creatinine Urine Total Protein Fluid Total Protein Vancomycin Trough Rheumatoid Factor Complement C4 Miscellaneous Test Crossmatch 11/28/16 11/28/16 11/28/16 04:45 05:33 05:44 WBC RBC Hgb Hct MCV MCH MCHC RDW Plt Count Lymph % (Auto) [place] % (Auto) Lymph # [place] # Baso # Seg Neutrophils % Seg Neuts % (Manual) Lymphocytes % (Manual) Monocytes % (Manual) Eosinophils % (Manual) Basophils % (Manual) Nucleated RBC % Seg Neutrophils # Seg Neutrophils # Man Lymphocytes # (Manual) Monocytes # (Manual) Eosinophils # (Manual) Basophils # (Manual) PT INR Fibrinogen dRVVT Confirm Interp Factor V Activity POC ABG pH POC ABG pCO2 POC ABG pO2 ABG pO2 99.3 H ABG HCO3 ABG Base Excess ABG Hemoglobin 8.3 L Oxyhemoglobin Sodium Potassium Chloride Carbon Dioxide BUN 63 H Creatinine 2.4 H Glucose 102 H POC Glucose 108 H Lactic Acid Calcium Ionized Calcium Phosphorus 1.80 L Magnesium Direct Bilirubin AST ALT Alkaline Phosphatase Lactate Dehydrogenase Troponin T C-Reactive Protein Total Protein Albumin Prealbumin Triglycerides Cholesterol LDL Cholesterol Direct HDL Cholesterol 25-OH Vitamin D Total PTH Intact Urine pH Urine WBC (Auto) Urine Creatinine Urine Total Protein Fluid Total Protein Vancomycin Trough Rheumatoid Factor Complement C4 Miscellaneous Test Crossmatch 11/28/16 11/28/16 11/28/16 12:31 16:09 23:46 WBC RBC Hgb Hct MCV MCH MCHC RDW Plt Count Lymph % (Auto) [place] % (Auto) Lymph # [place] # Baso # Seg Neutrophils % Seg Neuts % (Manual) Lymphocytes % (Manual) Monocytes % (Manual) Eosinophils % (Manual) Basophils % (Manual) Nucleated RBC % Seg Neutrophils # Seg Neutrophils # Man Lymphocytes # (Manual) Monocytes # (Manual) Eosinophils # (Manual) Basophils # (Manual) PT INR Fibrinogen dRVVT Confirm Interp Factor V Activity POC ABG pH POC ABG pCO2 POC ABG pO2 ABG pO2 ABG HCO3 ABG Base Excess ABG Hemoglobin Oxyhemoglobin Sodium Potassium Chloride Carbon Dioxide BUN Creatinine Glucose POC Glucose 126 H 111 H 119 H Lactic Acid Calcium Ionized Calcium Phosphorus Magnesium Direct Bilirubin AST ALT Alkaline Phosphatase Lactate Dehydrogenase Troponin T C-Reactive Protein Total Protein Albumin Prealbumin Triglycerides Cholesterol LDL Cholesterol Direct HDL Cholesterol 25-OH Vitamin D Total PTH Intact Urine pH Urine WBC (Auto) Urine Creatinine Urine Total Protein Fluid Total Protein Vancomycin Trough Rheumatoid Factor Complement C4 Miscellaneous Test Crossmatch 11/29/16 11/29/16 11/29/16 03:33 04:52 05:10 WBC RBC Hgb Hct MCV MCH MCHC RDW Plt Count Lymph % (Auto) [place] % (Auto) Lymph # [place] # Baso # Seg Neutrophils % Seg Neuts % (Manual) Lymphocytes % (Manual) Monocytes % (Manual) Eosinophils % (Manual) Basophils % (Manual) Nucleated RBC % Seg Neutrophils # Seg Neutrophils # Man Lymphocytes # (Manual) Monocytes # (Manual) Eosinophils # (Manual) Basophils # (Manual) PT INR Fibrinogen dRVVT Confirm Interp Factor V Activity POC ABG pH POC ABG pCO2 POC ABG pO2 ABG pO2 ABG HCO3 ABG Base Excess ABG Hemoglobin 7.0 L Oxyhemoglobin 94.9 L Sodium Potassium Chloride Carbon Dioxide BUN 73 H Creatinine 2.7 H Glucose POC Glucose 108 H Lactic Acid Calcium Ionized Calcium Phosphorus Magnesium Direct Bilirubin AST ALT Alkaline Phosphatase Lactate Dehydrogenase Troponin T C-Reactive Protein Total Protein Albumin Prealbumin Triglycerides Cholesterol LDL Cholesterol Direct HDL Cholesterol 25-OH Vitamin D Total PTH Intact Urine pH Urine WBC (Auto) Urine Creatinine Urine Total Protein Fluid Total Protein Vancomycin Trough Rheumatoid Factor Complement C4 Miscellaneous Test Crossmatch 11/29/16 11/29/16 11/29/16 12:16 18:05 23:46 WBC RBC Hgb Hct MCV MCH MCHC RDW Plt Count Lymph % (Auto) [place] % (Auto) Lymph # [place] # Baso # Seg Neutrophils % Seg Neuts % (Manual) Lymphocytes % (Manual) Monocytes % (Manual) Eosinophils % (Manual) Basophils % (Manual) Nucleated RBC % Seg Neutrophils # Seg Neutrophils # Man Lymphocytes # (Manual) Monocytes # (Manual) Eosinophils # (Manual) Basophils # (Manual) PT INR Fibrinogen dRVVT Confirm Interp Factor V Activity POC ABG pH POC ABG pCO2 POC ABG pO2 ABG pO2 ABG HCO3 ABG Base Excess ABG Hemoglobin Oxyhemoglobin Sodium Potassium Chloride Carbon Dioxide BUN Creatinine Glucose POC Glucose 133 H 146 H 141 H Lactic Acid Calcium Ionized Calcium Phosphorus Magnesium Direct Bilirubin AST ALT Alkaline Phosphatase Lactate Dehydrogenase Troponin T C-Reactive Protein Total Protein Albumin Prealbumin Triglycerides Cholesterol LDL Cholesterol Direct HDL Cholesterol 25-OH Vitamin D Total PTH Intact Urine pH Urine WBC (Auto) Urine Creatinine Urine Total Protein Fluid Total Protein Vancomycin Trough Rheumatoid Factor Complement C4 Miscellaneous Test Crossmatch 11/30/16 11/30/16 11/30/16 04:17 04:17 04:32 WBC 12.0 H RBC 2.80 L Hgb 7.8 L Hct 23.6 L MCV MCH MCHC RDW 16.6 H Plt Count Lymph % (Auto) [place] % (Auto) 11.3 H Lymph # [place] # 1.4 H Baso # Seg Neutrophils % Seg Neuts % (Manual) Lymphocytes % (Manual) Monocytes % (Manual) Eosinophils % (Manual) Basophils % (Manual) Nucleated RBC % Seg Neutrophils # 8.2 H Seg Neutrophils # Man Lymphocytes # (Manual) Monocytes # (Manual) Eosinophils # (Manual) Basophils # (Manual) PT INR Fibrinogen dRVVT Confirm Interp Factor V Activity POC ABG pH POC ABG pCO2 POC ABG pO2 ABG pO2 ABG HCO3 ABG Base Excess ABG Hemoglobin Oxyhemoglobin Sodium 169 H* D Potassium 5.1 H Chloride 121.5 H Carbon Dioxide BUN 34 H Creatinine 1.3 H D Glucose 133 H POC Glucose 131 H Lactic Acid Calcium 10.3 H Ionized Calcium Phosphorus Magnesium Direct Bilirubin AST ALT Alkaline Phosphatase Lactate Dehydrogenase Troponin T C-Reactive Protein Total Protein Albumin Prealbumin Triglycerides Cholesterol LDL Cholesterol Direct HDL Cholesterol 25-OH Vitamin D Total PTH Intact Urine pH Urine WBC (Auto) Urine Creatinine Urine Total Protein Fluid Total Protein Vancomycin Trough Rheumatoid Factor Complement C4 Miscellaneous Test Crossmatch 11/30/16 11/30/16 11/30/16 05:45 11:10 17:26 WBC RBC Hgb Hct MCV MCH MCHC RDW Plt Count Lymph % (Auto) [place] % (Auto) Lymph # [place] # Baso # Seg Neutrophils % Seg Neuts % (Manual) Lymphocytes % (Manual) Monocytes % (Manual) Eosinophils % (Manual) Basophils % (Manual) Nucleated RBC % Seg Neutrophils # Seg Neutrophils # Man Lymphocytes # (Manual) Monocytes # (Manual) Eosinophils # (Manual) Basophils # (Manual) PT INR Fibrinogen dRVVT Confirm Interp Factor V Activity POC ABG pH POC ABG pCO2 POC ABG pO2 ABG pO2 ABG HCO3 ABG Base Excess ABG Hemoglobin Oxyhemoglobin Sodium Potassium Chloride Carbon Dioxide BUN 45 H Creatinine 1.6 H Glucose 131 H POC Glucose 146 H 134 H Lactic Acid Calcium Ionized Calcium Phosphorus Magnesium Direct Bilirubin AST ALT Alkaline Phosphatase Lactate Dehydrogenase Troponin T C-Reactive Protein Total Protein Albumin Prealbumin Triglycerides Cholesterol LDL Cholesterol Direct HDL Cholesterol 25-OH Vitamin D Total PTH Intact Urine pH Urine WBC (Auto) Urine Creatinine Urine Total Protein Fluid Total Protein Vancomycin Trough Rheumatoid Factor Complement C4 Miscellaneous Test Crossmatch 11/30/16 12/01/16 12/01/16 23:35 00:06 03:35 WBC RBC Hgb Hct MCV MCH MCHC RDW Plt Count Lymph % (Auto) [place] % (Auto) Lymph # [place] # Baso # Seg Neutrophils % Seg Neuts % (Manual) Lymphocytes % (Manual) Monocytes % (Manual) Eosinophils % (Manual) Basophils % (Manual) Nucleated RBC % Seg Neutrophils # Seg Neutrophils # Man Lymphocytes # (Manual) Monocytes # (Manual) Eosinophils # (Manual) Basophils # (Manual) PT INR Fibrinogen dRVVT Confirm Interp Factor V Activity POC ABG pH POC ABG pCO2 POC ABG pO2 ABG pO2 ABG HCO3 ABG Base Excess ABG Hemoglobin 6.9 L Oxyhemoglobin Sodium Potassium Chloride Carbon Dioxide BUN 58 H Creatinine 1.8 H Glucose 146 H POC Glucose 151 H Lactic Acid Calcium Ionized Calcium Phosphorus Magnesium Direct Bilirubin AST ALT Alkaline Phosphatase Lactate Dehydrogenase Troponin T C-Reactive Protein Total Protein Albumin Prealbumin Triglycerides Cholesterol LDL Cholesterol Direct HDL Cholesterol 25-OH Vitamin D Total PTH Intact Urine pH Urine WBC (Auto) Urine Creatinine Urine Total Protein Fluid Total Protein Vancomycin Trough Rheumatoid Factor Complement C4 Miscellaneous Test Crossmatch 12/01/16 12/01/16 12/01/16 03:35 05:47 11:52 WBC 12.3 H RBC 2.82 L Hgb 7.8 L Hct 23.7 L MCV MCH MCHC RDW 16.7 H Plt Count Lymph % (Auto) [place] % (Auto) 9.8 H Lymph # [place] # 1.2 H Baso # Seg Neutrophils % Seg Neuts % (Manual) Lymphocytes % (Manual) Monocytes % (Manual) Eosinophils % (Manual) Basophils % (Manual) Nucleated RBC % Seg Neutrophils # 8.4 H Seg Neutrophils # Man Lymphocytes # (Manual) Monocytes # (Manual) Eosinophils # (Manual) Basophils # (Manual) PT INR Fibrinogen dRVVT Confirm Interp Factor V Activity POC ABG pH POC ABG pCO2 POC ABG pO2 ABG pO2 ABG HCO3 ABG Base Excess ABG Hemoglobin Oxyhemoglobin Sodium Potassium Chloride Carbon Dioxide BUN Creatinine Glucose POC Glucose 152 H 152 H Lactic Acid Calcium Ionized Calcium Phosphorus Magnesium Direct Bilirubin AST ALT Alkaline Phosphatase Lactate Dehydrogenase Troponin T C-Reactive Protein Total Protein Albumin Prealbumin Triglycerides Cholesterol LDL Cholesterol Direct HDL Cholesterol 25-OH Vitamin D Total PTH Intact Urine pH Urine WBC (Auto) Urine Creatinine Urine Total Protein Fluid Total Protein Vancomycin Trough Rheumatoid Factor Complement C4 Miscellaneous Test Crossmatch 12/01/16 12/01/16 12/02/16 17:40 23:41 05:00 WBC RBC Hgb Hct MCV MCH MCHC RDW Plt Count Lymph % (Auto) [place] % (Auto) Lymph # [place] # Baso # Seg Neutrophils % Seg Neuts % (Manual) Lymphocytes % (Manual) Monocytes % (Manual) Eosinophils % (Manual) Basophils % (Manual) Nucleated RBC % Seg Neutrophils # Seg Neutrophils # Man Lymphocytes # (Manual) Monocytes # (Manual) Eosinophils # (Manual) Basophils # (Manual) PT INR Fibrinogen dRVVT Confirm Interp Factor V Activity POC ABG pH POC ABG pCO2 POC ABG pO2 ABG pO2 ABG HCO3 ABG Base Excess ABG Hemoglobin Oxyhemoglobin Sodium Potassium Chloride Carbon Dioxide BUN 45 H Creatinine Glucose 115 H POC Glucose 140 H 144 H Lactic Acid Calcium Ionized Calcium Phosphorus Magnesium Direct Bilirubin AST ALT Alkaline Phosphatase Lactate Dehydrogenase Troponin T C-Reactive Protein Total Protein Albumin Prealbumin Triglycerides Cholesterol LDL Cholesterol Direct HDL Cholesterol 25-OH Vitamin D Total PTH Intact Urine pH Urine WBC (Auto) Urine Creatinine Urine Total Protein Fluid Total Protein Vancomycin Trough Rheumatoid Factor Complement C4 Miscellaneous Test Crossmatch 12/02/16 12/02/16 12/02/16 05:31 11:20 17:38 WBC RBC Hgb Hct MCV MCH MCHC RDW Plt Count Lymph % (Auto) [place] % (Auto) Lymph # [place] # Baso # Seg Neutrophils % Seg Neuts % (Manual) Lymphocytes % (Manual) Monocytes % (Manual) Eosinophils % (Manual) Basophils % (Manual) Nucleated RBC % Seg Neutrophils # Seg Neutrophils # Man Lymphocytes # (Manual) Monocytes # (Manual) Eosinophils # (Manual) Basophils # (Manual) PT INR Fibrinogen dRVVT Confirm Interp Factor V Activity POC ABG pH POC ABG pCO2 POC ABG pO2 ABG pO2 ABG HCO3 ABG Base Excess ABG Hemoglobin Oxyhemoglobin Sodium Potassium Chloride Carbon Dioxide BUN Creatinine Glucose POC Glucose 136 H 177 H 139 H Lactic Acid Calcium Ionized Calcium Phosphorus Magnesium Direct Bilirubin AST ALT Alkaline Phosphatase Lactate Dehydrogenase Troponin T C-Reactive Protein Total Protein Albumin Prealbumin Triglycerides Cholesterol LDL Cholesterol Direct HDL Cholesterol 25-OH Vitamin D Total PTH Intact Urine pH Urine WBC (Auto) Urine Creatinine Urine Total Protein Fluid Total Protein Vancomycin Trough Rheumatoid Factor Complement C4 Miscellaneous Test Crossmatch 12/02/16 12/03/16 12/03/16 23:43 04:00 04:00 WBC 20.4 H RBC 2.74 L Hgb 7.4 L Hct 23.6 L MCV MCH 27 L MCHC RDW 17.1 H Plt Count Lymph % (Auto) [place] % (Auto) Lymph # [place] # Baso # Seg Neutrophils % Seg Neuts % (Manual) 31.0 L Lymphocytes % (Manual) Monocytes % (Manual) Eosinophils % (Manual) Basophils % (Manual) Nucleated RBC % Seg Neutrophils # Seg Neutrophils # Man Lymphocytes # (Manual) Monocytes # (Manual) Eosinophils # (Manual) Basophils # (Manual) PT INR Fibrinogen dRVVT Confirm Interp Factor V Activity POC ABG pH POC ABG pCO2 POC ABG pO2 ABG pO2 ABG HCO3 ABG Base Excess ABG Hemoglobin Oxyhemoglobin Sodium Potassium Chloride Carbon Dioxide BUN 61 H Creatinine 1.6 H Glucose 119 H POC Glucose 158 H Lactic Acid Calcium Ionized Calcium Phosphorus Magnesium Direct Bilirubin AST ALT Alkaline Phosphatase Lactate Dehydrogenase Troponin T C-Reactive Protein Total Protein Albumin Prealbumin Triglycerides Cholesterol LDL Cholesterol Direct HDL Cholesterol 25-OH Vitamin D Total PTH Intact Urine pH Urine WBC (Auto) Urine Creatinine Urine Total Protein Fluid Total Protein Vancomycin Trough Rheumatoid Factor Complement C4 Miscellaneous Test Crossmatch 12/03/16 12/03/16 12/03/16 05:02 12:11 18:16 WBC RBC Hgb Hct MCV MCH MCHC RDW Plt Count Lymph % (Auto) [place] % (Auto) Lymph # [place] # Baso # Seg Neutrophils % Seg Neuts % (Manual) Lymphocytes % (Manual) Monocytes % (Manual) Eosinophils % (Manual) Basophils % (Manual) Nucleated RBC % Seg Neutrophils # Seg Neutrophils # Man Lymphocytes # (Manual) Monocytes # (Manual) Eosinophils # (Manual) Basophils # (Manual) PT INR Fibrinogen dRVVT Confirm Interp Factor V Activity POC ABG pH POC ABG pCO2 POC ABG pO2 ABG pO2 ABG HCO3 ABG Base Excess ABG Hemoglobin Oxyhemoglobin Sodium Potassium Chloride Carbon Dioxide BUN Creatinine Glucose POC Glucose 146 H 157 H 124 H Lactic Acid Calcium Ionized Calcium Phosphorus Magnesium Direct Bilirubin AST ALT Alkaline Phosphatase Lactate Dehydrogenase Troponin T C-Reactive Protein Total Protein Albumin Prealbumin Triglycerides Cholesterol LDL Cholesterol Direct HDL Cholesterol 25-OH Vitamin D Total PTH Intact Urine pH Urine WBC (Auto) Urine Creatinine Urine Total Protein Fluid Total Protein Vancomycin Trough Rheumatoid Factor Complement C4 Miscellaneous Test Crossmatch 12/03/16 12/04/16 12/04/16 23:41 04:00 04:45 WBC RBC Hgb Hct MCV MCH MCHC RDW Plt Count Lymph % (Auto) [place] % (Auto) Lymph # [place] # Baso # Seg Neutrophils % Seg Neuts % (Manual) Lymphocytes % (Manual) Monocytes % (Manual) Eosinophils % (Manual) Basophils % (Manual) Nucleated RBC % Seg Neutrophils # Seg Neutrophils # Man Lymphocytes # (Manual) Monocytes # (Manual) Eosinophils # (Manual) Basophils # (Manual) PT INR Fibrinogen dRVVT Confirm Interp Factor V Activity POC ABG pH POC ABG pCO2 POC ABG pO2 ABG pO2 ABG HCO3 ABG Base Excess ABG Hemoglobin Oxyhemoglobin Sodium Potassium Chloride Carbon Dioxide BUN 76 H Creatinine 1.6 H Glucose POC Glucose 130 H 136 H Lactic Acid Calcium Ionized Calcium Phosphorus Magnesium Direct Bilirubin AST ALT Alkaline Phosphatase 155 H Lactate Dehydrogenase Troponin T C-Reactive Protein Total Protein 5.5 L Albumin 1.5 L Prealbumin Triglycerides Cholesterol LDL Cholesterol Direct HDL Cholesterol 25-OH Vitamin D Total PTH Intact Urine pH Urine WBC (Auto) Urine Creatinine Urine Total Protein Fluid Total Protein Vancomycin Trough Rheumatoid Factor Complement C4 Miscellaneous Test Crossmatch 12/04/16 12/04/16 12/05/16 12:08 17:23 00:10 WBC RBC Hgb Hct MCV MCH MCHC RDW Plt Count Lymph % (Auto) [place] % (Auto) Lymph # [place] # Baso # Seg Neutrophils % Seg Neuts % (Manual) Lymphocytes % (Manual) Monocytes % (Manual) Eosinophils % (Manual) Basophils % (Manual) Nucleated RBC % Seg Neutrophils # Seg Neutrophils # Man Lymphocytes # (Manual) Monocytes # (Manual) Eosinophils # (Manual) Basophils # (Manual) PT INR Fibrinogen dRVVT Confirm Interp Factor V Activity POC ABG pH POC ABG pCO2 POC ABG pO2 ABG pO2 ABG HCO3 ABG Base Excess ABG Hemoglobin Oxyhemoglobin Sodium Potassium Chloride Carbon Dioxide BUN Creatinine Glucose POC Glucose 114 H 129 H 124 H Lactic Acid Calcium Ionized Calcium Phosphorus Magnesium Direct Bilirubin AST ALT Alkaline Phosphatase Lactate Dehydrogenase Troponin T C-Reactive Protein Total Protein Albumin Prealbumin Triglycerides Cholesterol LDL Cholesterol Direct HDL Cholesterol 25-OH Vitamin D Total PTH Intact Urine pH Urine WBC (Auto) Urine Creatinine Urine Total Protein Fluid Total Protein Vancomycin Trough Rheumatoid Factor Complement C4 Miscellaneous Test Crossmatch 12/05/16 12/05/16 12/05/16 05:00 05:00 05:18 WBC RBC Hgb Hct MCV MCH MCHC RDW Plt Count Lymph % (Auto) [place] % (Auto) Lymph # [place] # Baso # Seg Neutrophils % Seg Neuts % (Manual) Lymphocytes % (Manual) Monocytes % (Manual) Eosinophils % (Manual) Basophils % (Manual) Nucleated RBC % Seg Neutrophils # Seg Neutrophils # Man Lymphocytes # (Manual) Monocytes # (Manual) Eosinophils # (Manual) Basophils # (Manual) PT INR Fibrinogen dRVVT Confirm Interp Factor V Activity POC ABG pH POC ABG pCO2 POC ABG pO2 ABG pO2 ABG HCO3 ABG Base Excess ABG Hemoglobin Oxyhemoglobin Sodium Potassium Chloride Carbon Dioxide 21 L BUN 85 H Creatinine 1.9 H Glucose 131 H POC Glucose 154 H Lactic Acid Calcium Ionized Calcium Phosphorus Magnesium Direct Bilirubin AST ALT Alkaline Phosphatase Lactate Dehydrogenase Troponin T C-Reactive Protein 19.30 H Total Protein Albumin Prealbumin Triglycerides Cholesterol LDL Cholesterol Direct HDL Cholesterol 25-OH Vitamin D Total PTH Intact Urine pH Urine WBC (Auto) Urine Creatinine Urine Total Protein Fluid Total Protein Vancomycin Trough Rheumatoid Factor Complement C4 Miscellaneous Test Crossmatch 12/05/16 12/05/16 12/05/16 11:43 17:46 23:25 WBC RBC Hgb Hct MCV MCH MCHC RDW Plt Count Lymph % (Auto) [place] % (Auto) Lymph # [place] # Baso # Seg Neutrophils % Seg Neuts % (Manual) Lymphocytes % (Manual) Monocytes % (Manual) Eosinophils % (Manual) Basophils % (Manual) Nucleated RBC % Seg Neutrophils # Seg Neutrophils # Man Lymphocytes # (Manual) Monocytes # (Manual) Eosinophils # (Manual) Basophils # (Manual) PT INR Fibrinogen dRVVT Confirm Interp Factor V Activity POC ABG pH POC ABG pCO2 POC ABG pO2 ABG pO2 ABG HCO3 ABG Base Excess ABG Hemoglobin Oxyhemoglobin Sodium Potassium Chloride Carbon Dioxide BUN Creatinine Glucose POC Glucose 117 H 113 H 111 H Lactic Acid Calcium Ionized Calcium Phosphorus Magnesium Direct Bilirubin AST ALT Alkaline Phosphatase Lactate Dehydrogenase Troponin T C-Reactive Protein Total Protein Albumin Prealbumin Triglycerides Cholesterol LDL Cholesterol Direct HDL Cholesterol 25-OH Vitamin D Total PTH Intact Urine pH Urine WBC (Auto) Urine Creatinine Urine Total Protein Fluid Total Protein Vancomycin Trough Rheumatoid Factor Complement C4 Miscellaneous Test Crossmatch 12/05/16 12/06/1612/06/17 Unknown 04:58 06:00 WBC RBC Hgb Hct MCV MCH MCHC RDW Plt Count Lymph % (Auto) [place] % (Auto) Lymph # [place] # Baso # Seg Neutrophils % Seg Neuts % (Manual) Lymphocytes % (Manual) Monocytes % (Manual) Eosinophils % (Manual) Basophils % (Manual) Nucleated RBC % Seg Neutrophils # Seg Neutrophils # Man Lymphocytes # (Manual) Monocytes # (Manual) Eosinophils # (Manual) Basophils # (Manual) PT INR Fibrinogen dRVVT Confirm Interp Factor V Activity POC ABG pH POC ABG pCO2 POC ABG pO2 ABG pO2 75.2 L ABG HCO3 ABG Base Excess -3.4 L ABG Hemoglobin 7.4 L Oxyhemoglobin 94.5 L Sodium Potassium Chloride Carbon Dioxide 20 L BUN 99 H Creatinine 2.1 H Glucose 126 H POC Glucose 145 H Lactic Acid Calcium Ionized Calcium Phosphorus 4.80 H Magnesium Direct Bilirubin AST ALT Alkaline Phosphatase Lactate Dehydrogenase Troponin T C-Reactive Protein Total Protein Albumin Prealbumin Triglycerides Cholesterol LDL Cholesterol Direct HDL Cholesterol 25-OH Vitamin D Total PTH Intact Urine pH Urine WBC (Auto) Urine Creatinine Urine Total Protein Fluid Total Protein Vancomycin Trough Rheumatoid Factor Complement C4 Miscellaneous Test Crossmatch 12/06/16 12/06/16 12/06/16 06:46 11:54 17:55 WBC RBC Hgb 8.3 L Hct 26.4 L MCV MCH MCHC RDW Plt Count Lymph % (Auto) [place] % (Auto) Lymph # [place] # Baso # Seg Neutrophils % Seg Neuts % (Manual) Lymphocytes % (Manual) Monocytes % (Manual) Eosinophils % (Manual) Basophils % (Manual) Nucleated RBC % Seg Neutrophils # Seg Neutrophils # Man Lymphocytes # (Manual) Monocytes # (Manual) Eosinophils # (Manual) Basophils # (Manual) PT INR Fibrinogen dRVVT Confirm Interp Factor V Activity POC ABG pH POC ABG pCO2 POC ABG pO2 ABG pO2 ABG HCO3 ABG Base Excess ABG Hemoglobin Oxyhemoglobin Sodium Potassium Chloride Carbon Dioxide BUN Creatinine Glucose POC Glucose 126 H 157 H Lactic Acid Calcium Ionized Calcium Phosphorus Magnesium Direct Bilirubin AST ALT Alkaline Phosphatase Lactate Dehydrogenase Troponin T C-Reactive Protein Total Protein Albumin Prealbumin Triglycerides Cholesterol LDL Cholesterol Direct HDL Cholesterol 25-OH Vitamin D Total PTH Intact Urine pH Urine WBC (Auto) Urine Creatinine Urine Total Protein Fluid Total Protein Vancomycin Trough Rheumatoid Factor Complement C4 Miscellaneous Test Crossmatch 12/06/16 12/07/16 12/07/16 23:59 05:34 06:30 WBC RBC Hgb Hct MCV MCH MCHC RDW Plt Count Lymph % (Auto) [place] % (Auto) Lymph # [place] # Baso # Seg Neutrophils % Seg Neuts % (Manual) Lymphocytes % (Manual) Monocytes % (Manual) Eosinophils % (Manual) Basophils % (Manual) Nucleated RBC % Seg Neutrophils # Seg Neutrophils # Man Lymphocytes # (Manual) Monocytes # (Manual) Eosinophils # (Manual) Basophils # (Manual) PT INR Fibrinogen dRVVT Confirm Interp Factor V Activity POC ABG pH POC ABG pCO2 POC ABG pO2 ABG pO2 ABG HCO3 ABG Base Excess ABG Hemoglobin Oxyhemoglobin Sodium Potassium Chloride Carbon Dioxide BUN 67 H Creatinine 1.4 H Glucose 126 H POC Glucose 129 H 129 H Lactic Acid Calcium Ionized Calcium Phosphorus Magnesium Direct Bilirubin AST ALT Alkaline Phosphatase Lactate Dehydrogenase Troponin T C-Reactive Protein Total Protein Albumin Prealbumin Triglycerides Cholesterol LDL Cholesterol Direct HDL Cholesterol 25-OH Vitamin D Total PTH Intact Urine pH Urine WBC (Auto) Urine Creatinine Urine Total Protein Fluid Total Protein Vancomycin Trough Rheumatoid Factor Complement C4 Miscellaneous Test Crossmatch 12/07/16 12/07/16 12/07/16 06:30 08:00 09:45 WBC 18.8 H RBC 2.52 L Hgb 6.9 L 6.8 L Hct 21.2 L 21.1 L MCV MCH 27 L MCHC RDW 18.0 H Plt Count Lymph % (Auto) [place] % (Auto) 9.9 H Lymph # [place] # 1.9 H Baso # Seg Neutrophils % 71.8 H Seg Neuts % (Manual) Lymphocytes % (Manual) Monocytes % (Manual) Eosinophils % (Manual) Basophils % (Manual) Nucleated RBC % Seg Neutrophils # 13.5 H Seg Neutrophils # Man Lymphocytes # (Manual) Monocytes # (Manual) Eosinophils # (Manual) Basophils # (Manual) PT INR Fibrinogen dRVVT Confirm Interp Factor V Activity POC ABG pH POC ABG pCO2 POC ABG pO2 ABG pO2 ABG HCO3 ABG Base Excess ABG Hemoglobin Oxyhemoglobin Sodium Potassium Chloride Carbon Dioxide BUN Creatinine Glucose POC Glucose Lactic Acid Calcium Ionized Calcium Phosphorus Magnesium Direct Bilirubin AST ALT Alkaline Phosphatase Lactate Dehydrogenase Troponin T C-Reactive Protein Total Protein Albumin Prealbumin Triglycerides Cholesterol LDL Cholesterol Direct HDL Cholesterol 25-OH Vitamin D Total PTH Intact Urine pH Urine WBC (Auto) Urine Creatinine Urine Total Protein Fluid Total Protein Vancomycin Trough Rheumatoid Factor Complement C4 Miscellaneous Test Crossmatch See Detail 12/07/16 12/07/16 12/07/16 11:44 18:19 23:59 WBC RBC Hgb Hct MCV MCH MCHC RDW Plt Count Lymph % (Auto) [place] % (Auto) Lymph # [place] # Baso # Seg Neutrophils % Seg Neuts % (Manual) Lymphocytes % (Manual) Monocytes % (Manual) Eosinophils % (Manual) Basophils % (Manual) Nucleated RBC % Seg Neutrophils # Seg Neutrophils # Man Lymphocytes # (Manual) Monocytes # (Manual) Eosinophils # (Manual) Basophils # (Manual) PT INR Fibrinogen dRVVT Confirm Interp Factor V Activity POC ABG pH POC ABG pCO2 POC ABG pO2 ABG pO2 ABG HCO3 ABG Base Excess ABG Hemoglobin Oxyhemoglobin Sodium Potassium Chloride Carbon Dioxide BUN Creatinine Glucose POC Glucose 137 H 138 H 133 H Lactic Acid Calcium Ionized Calcium Phosphorus Magnesium Direct Bilirubin AST ALT Alkaline Phosphatase Lactate Dehydrogenase Troponin T C-Reactive Protein Total Protein Albumin Prealbumin Triglycerides Cholesterol LDL Cholesterol Direct HDL Cholesterol 25-OH Vitamin D Total PTH Intact Urine pH Urine WBC (Auto) Urine Creatinine Urine Total Protein Fluid Total Protein Vancomycin Trough Rheumatoid Factor Complement C4 Miscellaneous Test Crossmatch 12/08/16 12/08/16 12/08/16 05:25 05:30 05:30 WBC 23.8 H RBC 2.88 L Hgb 8.1 L Hct 24.3 L MCV MCH MCHC RDW 16.7 H Plt Count Lymph % (Auto) [place] % (Auto) Lymph # [place] # Baso # Seg Neutrophils % Seg Neuts % (Manual) 76.0 H Lymphocytes % (Manual) 9.0 L Monocytes % (Manual) 9.0 H Eosinophils % (Manual) Basophils % (Manual) Nucleated RBC % Seg Neutrophils # Seg Neutrophils # Man 18.1 H Lymphocytes # (Manual) Monocytes # (Manual) 2.1 H Eosinophils # (Manual) Basophils # (Manual) PT INR Fibrinogen dRVVT Confirm Interp Factor V Activity POC ABG pH POC ABG pCO2 POC ABG pO2 ABG pO2 ABG HCO3 ABG Base Excess ABG Hemoglobin Oxyhemoglobin Sodium Potassium Chloride Carbon Dioxide 21 L BUN 76 H Creatinine 1.6 H Glucose 133 H POC Glucose 177 H Lactic Acid Calcium Ionized Calcium Phosphorus Magnesium Direct Bilirubin AST ALT Alkaline Phosphatase Lactate Dehydrogenase Troponin T C-Reactive Protein Total Protein Albumin Prealbumin Triglycerides Cholesterol LDL Cholesterol Direct HDL Cholesterol 25-OH Vitamin D Total PTH Intact Urine pH Urine WBC (Auto) Urine Creatinine Urine Total Protein Fluid Total Protein Vancomycin Trough Rheumatoid Factor Complement C4 Miscellaneous Test Crossmatch 12/08/16 12/08/16 12/09/16 11:45 18:00 00:00 WBC RBC Hgb Hct MCV MCH MCHC RDW Plt Count Lymph % (Auto) [place] % (Auto) Lymph # [place] # Baso # Seg Neutrophils % Seg Neuts % (Manual) Lymphocytes % (Manual) Monocytes % (Manual) Eosinophils % (Manual) Basophils % (Manual) Nucleated RBC % Seg Neutrophils # Seg Neutrophils # Man Lymphocytes # (Manual) Monocytes # (Manual) Eosinophils # (Manual) Basophils # (Manual) PT INR Fibrinogen dRVVT Confirm Interp Factor V Activity POC ABG pH POC ABG pCO2 POC ABG pO2 ABG pO2 ABG HCO3 ABG Base Excess ABG Hemoglobin Oxyhemoglobin Sodium Potassium Chloride Carbon Dioxide BUN Creatinine Glucose POC Glucose 163 H 123 H 137 H Lactic Acid Calcium Ionized Calcium Phosphorus Magnesium Direct Bilirubin AST ALT Alkaline Phosphatase Lactate Dehydrogenase Troponin T C-Reactive Protein Total Protein Albumin Prealbumin Triglycerides Cholesterol LDL Cholesterol Direct HDL Cholesterol 25-OH Vitamin D Total PTH Intact Urine pH Urine WBC (Auto) Urine Creatinine Urine Total Protein Fluid Total Protein Vancomycin Trough Rheumatoid Factor Complement C4 Miscellaneous Test Crossmatch 12/09/16 12/09/16 12/09/16 05:34 06:00 06:00 WBC 15.5 H RBC 2.87 L Hgb 8.0 L Hct 24.2 L MCV MCH MCHC RDW 17.2 H Plt Count Lymph % (Auto) [place] % (Auto) 11.6 H Lymph # [place] # 1.8 H Baso # Seg Neutrophils % 70.8 H Seg Neuts % (Manual) Lymphocytes % (Manual) Monocytes % (Manual) Eosinophils % (Manual) Basophils % (Manual) Nucleated RBC % Seg Neutrophils # 11.0 H Seg Neutrophils # Man Lymphocytes # (Manual) Monocytes # (Manual) Eosinophils # (Manual) Basophils # (Manual) PT INR Fibrinogen dRVVT Confirm Interp Factor V Activity POC ABG pH POC ABG pCO2 POC ABG pO2 ABG pO2 ABG HCO3 ABG Base Excess ABG Hemoglobin Oxyhemoglobin Sodium Potassium Chloride Carbon Dioxide BUN 51 H Creatinine Glucose 117 H POC Glucose 136 H Lactic Acid Calcium Ionized Calcium Phosphorus Magnesium Direct Bilirubin AST ALT Alkaline Phosphatase Lactate Dehydrogenase Troponin T C-Reactive Protein Total Protein Albumin Prealbumin Triglycerides Cholesterol LDL Cholesterol Direct HDL Cholesterol 25-OH Vitamin D Total PTH Intact Urine pH Urine WBC (Auto) Urine Creatinine Urine Total Protein Fluid Total Protein Vancomycin Trough Rheumatoid Factor Complement C4 Miscellaneous Test Crossmatch 12/09/16 12/09/16 12/09/16 12:29 17:52 23:10 WBC RBC Hgb Hct MCV MCH MCHC RDW Plt Count Lymph % (Auto) [place] % (Auto) Lymph # [place] # Baso # Seg Neutrophils % Seg Neuts % (Manual) Lymphocytes % (Manual) Monocytes % (Manual) Eosinophils % (Manual) Basophils % (Manual) Nucleated RBC % Seg Neutrophils # Seg Neutrophils # Man Lymphocytes # (Manual) Monocytes # (Manual) Eosinophils # (Manual) Basophils # (Manual) PT INR Fibrinogen dRVVT Confirm Interp Factor V Activity POC ABG pH POC ABG pCO2 POC ABG pO2 ABG pO2 ABG HCO3 ABG Base Excess ABG Hemoglobin Oxyhemoglobin Sodium Potassium Chloride Carbon Dioxide BUN Creatinine Glucose POC Glucose 139 H 140 H 129 H Lactic Acid Calcium Ionized Calcium Phosphorus Magnesium Direct Bilirubin AST ALT Alkaline Phosphatase Lactate Dehydrogenase Troponin T C-Reactive Protein Total Protein Albumin Prealbumin Triglycerides Cholesterol LDL Cholesterol Direct HDL Cholesterol 25-OH Vitamin D Total PTH Intact Urine pH Urine WBC (Auto) Urine Creatinine Urine Total Protein Fluid Total Protein Vancomycin Trough Rheumatoid Factor Complement C4 Miscellaneous Test Crossmatch 12/10/16 12/10/16 12/10/16 05:00 05:00 06:54 WBC 15.7 H RBC 2.87 L Hgb 8.2 L Hct 24.4 L MCV MCH MCHC RDW 17.2 H Plt Count Lymph % (Auto) [place] % (Auto) 8.3 H Lymph # [place] # 1.3 H Baso # Seg Neutrophils % 72.8 H Seg Neuts % (Manual) Lymphocytes % (Manual) Monocytes % (Manual) Eosinophils % (Manual) Basophils % (Manual) Nucleated RBC % Seg Neutrophils # 11.4 H Seg Neutrophils # Man Lymphocytes # (Manual) Monocytes # (Manual) Eosinophils # (Manual) Basophils # (Manual) PT INR Fibrinogen dRVVT Confirm Interp Factor V Activity POC ABG pH POC ABG pCO2 POC ABG pO2 ABG pO2 ABG HCO3 ABG Base Excess ABG Hemoglobin Oxyhemoglobin Sodium Potassium Chloride Carbon Dioxide BUN 64 H Creatinine 1.4 H Glucose 134 H POC Glucose 154 H Lactic Acid Calcium Ionized Calcium Phosphorus Magnesium Direct Bilirubin AST ALT Alkaline Phosphatase Lactate Dehydrogenase Troponin T C-Reactive Protein Total Protein Albumin Prealbumin Triglycerides Cholesterol LDL Cholesterol Direct HDL Cholesterol 25-OH Vitamin D Total PTH Intact Urine pH Urine WBC (Auto) Urine Creatinine Urine Total Protein Fluid Total Protein Vancomycin Trough Rheumatoid Factor Complement C4 Miscellaneous Test Crossmatch 12/10/16 12/10/16 12/10/16 11:58 17:29 23:52 WBC RBC Hgb Hct MCV MCH MCHC RDW Plt Count Lymph % (Auto) [place] % (Auto) Lymph # [place] # Baso # Seg Neutrophils % Seg Neuts % (Manual) Lymphocytes % (Manual) Monocytes % (Manual) Eosinophils % (Manual) Basophils % (Manual) Nucleated RBC % Seg Neutrophils # Seg Neutrophils # Man Lymphocytes # (Manual) Monocytes # (Manual) Eosinophils # (Manual) Basophils # (Manual) PT INR Fibrinogen dRVVT Confirm Interp Factor V Activity POC ABG pH POC ABG pCO2 POC ABG pO2 ABG pO2 ABG HCO3 ABG Base Excess ABG Hemoglobin Oxyhemoglobin Sodium Potassium Chloride Carbon Dioxide BUN Creatinine Glucose POC Glucose 144 H 163 H 125 H Lactic Acid Calcium Ionized Calcium Phosphorus Magnesium Direct Bilirubin AST ALT Alkaline Phosphatase Lactate Dehydrogenase Troponin T C-Reactive Protein Total Protein Albumin Prealbumin Triglycerides Cholesterol LDL Cholesterol Direct HDL Cholesterol 25-OH Vitamin D Total PTH Intact Urine pH Urine WBC (Auto) Urine Creatinine Urine Total Protein Fluid Total Protein Vancomycin Trough Rheumatoid Factor Complement C4 Miscellaneous Test Crossmatch 12/11/16 12/11/16 12/11/16 05:38 06:30 06:30 WBC 14.4 H RBC 2.76 L Hgb 7.7 L Hct 23.4 L MCV MCH MCHC RDW 17.2 H Plt Count Lymph % (Auto) [place] % (Auto) 8.8 H Lymph # [place] # 1.3 H Baso # Seg Neutrophils % 72.5 H Seg Neuts % (Manual) Lymphocytes % (Manual) Monocytes % (Manual) Eosinophils % (Manual) Basophils % (Manual) Nucleated RBC % Seg Neutrophils # 10.5 H Seg Neutrophils # Man Lymphocytes # (Manual) Monocytes # (Manual) Eosinophils # (Manual) Basophils # (Manual) PT INR Fibrinogen dRVVT Confirm Interp Factor V Activity POC ABG pH POC ABG pCO2 POC ABG pO2 ABG pO2 ABG HCO3 ABG Base Excess ABG Hemoglobin Oxyhemoglobin Sodium Potassium Chloride Carbon Dioxide BUN 43 H Creatinine Glucose 124 H POC Glucose 141 H Lactic Acid Calcium 8.3 L Ionized Calcium Phosphorus Magnesium 1.60 L Direct Bilirubin AST ALT Alkaline Phosphatase Lactate Dehydrogenase Troponin T C-Reactive Protein Total Protein Albumin Prealbumin Triglycerides Cholesterol LDL Cholesterol Direct HDL Cholesterol 25-OH Vitamin D Total PTH Intact Urine pH Urine WBC (Auto) Urine Creatinine Urine Total Protein Fluid Total Protein Vancomycin Trough Rheumatoid Factor Complement C4 Miscellaneous Test Crossmatch 12/11/16 12/11/16 12/11/16 11:15 17:59 23:48 WBC RBC Hgb Hct MCV MCH MCHC RDW Plt Count Lymph % (Auto) [place] % (Auto) Lymph # [place] # Baso # Seg Neutrophils % Seg Neuts % (Manual) Lymphocytes % (Manual) Monocytes % (Manual) Eosinophils % (Manual) Basophils % (Manual) Nucleated RBC % Seg Neutrophils # Seg Neutrophils # Man Lymphocytes # (Manual) Monocytes # (Manual) Eosinophils # (Manual) Basophils # (Manual) PT INR Fibrinogen dRVVT Confirm Interp Factor V Activity POC ABG pH POC ABG pCO2 POC ABG pO2 ABG pO2 ABG HCO3 ABG Base Excess ABG Hemoglobin Oxyhemoglobin Sodium Potassium Chloride Carbon Dioxide BUN Creatinine Glucose POC Glucose 188 H 106 H 119 H Lactic Acid Calcium Ionized Calcium Phosphorus Magnesium Direct Bilirubin AST ALT Alkaline Phosphatase Lactate Dehydrogenase Troponin T C-Reactive Protein Total Protein Albumin Prealbumin Triglycerides Cholesterol LDL Cholesterol Direct HDL Cholesterol 25-OH Vitamin D Total PTH Intact Urine pH Urine WBC (Auto) Urine Creatinine Urine Total Protein Fluid Total Protein Vancomycin Trough Rheumatoid Factor Complement C4 Miscellaneous Test Crossmatch 12/12/16 12/12/16 12/12/16 05:00 06:01 12:20 WBC 16.7 H RBC 2.87 L Hgb 8.0 L Hct 24.2 L MCV MCH MCHC RDW 17.6 H Plt Count Lymph % (Auto) [place] % (Auto) Lymph # [place] # 1.2 H Baso # Seg Neutrophils % 75.3 H Seg Neuts % (Manual) Lymphocytes % (Manual) Monocytes % (Manual) Eosinophils % (Manual) Basophils % (Manual) Nucleated RBC % Seg Neutrophils # 12.6 H Seg Neutrophils # Man Lymphocytes # (Manual) Monocytes # (Manual) Eosinophils # (Manual) Basophils # (Manual) PT INR Fibrinogen dRVVT Confirm Interp Factor V Activity POC ABG pH POC ABG pCO2 POC ABG pO2 ABG pO2 ABG HCO3 ABG Base Excess ABG Hemoglobin Oxyhemoglobin Sodium Potassium Chloride Carbon Dioxide BUN Creatinine Glucose POC Glucose 134 H 149 H Lactic Acid Calcium Ionized Calcium Phosphorus Magnesium Direct Bilirubin AST ALT Alkaline Phosphatase Lactate Dehydrogenase Troponin T C-Reactive Protein Total Protein Albumin Prealbumin Triglycerides Cholesterol LDL Cholesterol Direct HDL Cholesterol 25-OH Vitamin D Total PTH Intact Urine pH Urine WBC (Auto) Urine Creatinine Urine Total Protein Fluid Total Protein Vancomycin Trough Rheumatoid Factor Complement C4 Miscellaneous Test Crossmatch 12/12/16 12/12/16 12/12/16 17:38 23:01 Unknown WBC RBC Hgb Hct MCV MCH MCHC RDW Plt Count Lymph % (Auto) [place] % (Auto) Lymph # [place] # Baso # Seg Neutrophils % Seg Neuts % (Manual) Lymphocytes % (Manual) Monocytes % (Manual) Eosinophils % (Manual) Basophils % (Manual) Nucleated RBC % Seg Neutrophils # Seg Neutrophils # Man Lymphocytes # (Manual) Monocytes # (Manual) Eosinophils # (Manual) Basophils # (Manual) PT INR Fibrinogen dRVVT Confirm Interp Factor V Activity POC ABG pH POC ABG pCO2 POC ABG pO2 ABG pO2 ABG HCO3 ABG Base Excess ABG Hemoglobin Oxyhemoglobin Sodium Potassium Chloride Carbon Dioxide BUN 60 H Creatinine 1.3 H Glucose 126 H POC Glucose 127 H 144 H Lactic Acid Calcium Ionized Calcium Phosphorus Magnesium Direct Bilirubin AST ALT Alkaline Phosphatase Lactate Dehydrogenase Troponin T C-Reactive Protein Total Protein Albumin Prealbumin Triglycerides Cholesterol LDL Cholesterol Direct HDL Cholesterol 25-OH Vitamin D Total PTH Intact Urine pH Urine WBC (Auto) Urine Creatinine Urine Total Protein Fluid Total Protein Vancomycin Trough Rheumatoid Factor Complement C4 Miscellaneous Test Crossmatch 12/13/16 12/13/16 12/13/16 04:00 04:00 05:19 WBC 18.7 H RBC 2.89 L Hgb 8.3 L Hct 24.6 L MCV MCH MCHC RDW 17.5 H Plt Count Lymph % (Auto) [place] % (Auto) Lymph # [place] # 1.3 H Baso # Seg Neutrophils % 71.5 H Seg Neuts % (Manual) Lymphocytes % (Manual) Monocytes % (Manual) Eosinophils % (Manual) Basophils % (Manual) Nucleated RBC % Seg Neutrophils # 13.4 H Seg Neutrophils # Man Lymphocytes # (Manual) Monocytes # (Manual) Eosinophils # (Manual) Basophils # (Manual) PT INR Fibrinogen dRVVT Confirm Interp Factor V Activity POC ABG pH POC ABG pCO2 POC ABG pO2 ABG pO2 ABG HCO3 ABG Base Excess ABG Hemoglobin Oxyhemoglobin Sodium Potassium Chloride Carbon Dioxide BUN 73 H Creatinine 1.5 H Glucose 141 H POC Glucose 171 H Lactic Acid Calcium Ionized Calcium Phosphorus Magnesium Direct Bilirubin AST ALT Alkaline Phosphatase Lactate Dehydrogenase Troponin T C-Reactive Protein Total Protein Albumin Prealbumin Triglycerides Cholesterol LDL Cholesterol Direct HDL Cholesterol 25-OH Vitamin D Total PTH Intact Urine pH Urine WBC (Auto) Urine Creatinine Urine Total Protein Fluid Total Protein Vancomycin Trough Rheumatoid Factor Complement C4 Miscellaneous Test Crossmatch 12/13/16 12/13/16 12/14/16 12:28 16:48 00:01 WBC RBC Hgb Hct MCV MCH MCHC RDW Plt Count Lymph % (Auto) [place] % (Auto) Lymph # [place] # Baso # Seg Neutrophils % Seg Neuts % (Manual) Lymphocytes % (Manual) Monocytes % (Manual) Eosinophils % (Manual) Basophils % (Manual) Nucleated RBC % Seg Neutrophils # Seg Neutrophils # Man Lymphocytes # (Manual) Monocytes # (Manual) Eosinophils # (Manual) Basophils # (Manual) PT INR Fibrinogen dRVVT Confirm Interp Factor V Activity POC ABG pH POC ABG pCO2 POC ABG pO2 ABG pO2 ABG HCO3 ABG Base Excess ABG Hemoglobin Oxyhemoglobin Sodium Potassium Chloride Carbon Dioxide BUN Creatinine Glucose POC Glucose 206 H 173 H 139 H Lactic Acid Calcium Ionized Calcium Phosphorus Magnesium Direct Bilirubin AST ALT Alkaline Phosphatase Lactate Dehydrogenase Troponin T C-Reactive Protein Total Protein Albumin Prealbumin Triglycerides Cholesterol LDL Cholesterol Direct HDL Cholesterol 25-OH Vitamin D Total PTH Intact Urine pH Urine WBC (Auto) Urine Creatinine Urine Total Protein Fluid Total Protein Vancomycin Trough Rheumatoid Factor Complement C4 Miscellaneous Test Crossmatch 12/14/16 12/14/16 12/14/16 05:16 06:10 11:17 WBC RBC Hgb Hct MCV MCH MCHC RDW Plt Count Lymph % (Auto) [place] % (Auto) Lymph # [place] # Baso # Seg Neutrophils % Seg Neuts % (Manual) Lymphocytes % (Manual) Monocytes % (Manual) Eosinophils % (Manual) Basophils % (Manual) Nucleated RBC % Seg Neutrophils # Seg Neutrophils # Man Lymphocytes # (Manual) Monocytes # (Manual) Eosinophils # (Manual) Basophils # (Manual) PT INR Fibrinogen dRVVT Confirm Interp Factor V Activity POC ABG pH POC ABG pCO2 POC ABG pO2 ABG pO2 ABG HCO3 ABG Base Excess ABG Hemoglobin Oxyhemoglobin Sodium Potassium Chloride Carbon Dioxide BUN 57 H Creatinine 1.4 H Glucose 135 H POC Glucose 158 H 137 H Lactic Acid Calcium Ionized Calcium Phosphorus Magnesium Direct Bilirubin AST ALT Alkaline Phosphatase Lactate Dehydrogenase Troponin T C-Reactive Protein Total Protein Albumin Prealbumin Triglycerides Cholesterol LDL Cholesterol Direct HDL Cholesterol 25-OH Vitamin D Total PTH Intact Urine pH Urine WBC (Auto) Urine Creatinine Urine Total Protein Fluid Total Protein Vancomycin Trough Rheumatoid Factor Complement C4 Miscellaneous Test Crossmatch 12/14/16 12/14/16 12/15/16 17:52 23:27 04:00 WBC RBC Hgb Hct MCV MCH MCHC RDW Plt Count Lymph % (Auto) [place] % (Auto) Lymph # [place] # Baso # Seg Neutrophils % Seg Neuts % (Manual) Lymphocytes % (Manual) Monocytes % (Manual) Eosinophils % (Manual) Basophils % (Manual) Nucleated RBC % Seg Neutrophils # Seg Neutrophils # Man Lymphocytes # (Manual) Monocytes # (Manual) Eosinophils # (Manual) Basophils # (Manual) PT INR Fibrinogen dRVVT Confirm Interp Factor V Activity POC ABG pH POC ABG pCO2 POC ABG pO2 ABG pO2 ABG HCO3 ABG Base Excess ABG Hemoglobin Oxyhemoglobin Sodium Potassium Chloride 97.9 L Carbon Dioxide BUN 75 H Creatinine 1.6 H Glucose 122 H POC Glucose 149 H 163 H Lactic Acid Calcium Ionized Calcium Phosphorus 5.20 H Magnesium Direct Bilirubin AST ALT Alkaline Phosphatase Lactate Dehydrogenase Troponin T C-Reactive Protein Total Protein Albumin Prealbumin Triglycerides Cholesterol LDL Cholesterol Direct HDL Cholesterol 25-OH Vitamin D Total PTH Intact Urine pH Urine WBC (Auto) Urine Creatinine Urine Total Protein Fluid Total Protein Vancomycin Trough Rheumatoid Factor Complement C4 Miscellaneous Test Crossmatch 12/15/16 12/15/16 12/15/16 05:50 11:24 17:01 WBC RBC Hgb Hct MCV MCH MCHC RDW Plt Count Lymph % (Auto) [place] % (Auto) Lymph # [place] # Baso # Seg Neutrophils % Seg Neuts % (Manual) Lymphocytes % (Manual) Monocytes % (Manual) Eosinophils % (Manual) Basophils % (Manual) Nucleated RBC % Seg Neutrophils # Seg Neutrophils # Man Lymphocytes # (Manual) Monocytes # (Manual) Eosinophils # (Manual) Basophils # (Manual) PT INR Fibrinogen dRVVT Confirm Interp Factor V Activity POC ABG pH POC ABG pCO2 POC ABG pO2 ABG pO2 ABG HCO3 ABG Base Excess ABG Hemoglobin Oxyhemoglobin Sodium Potassium Chloride Carbon Dioxide BUN Creatinine Glucose POC Glucose 150 H 146 H 167 H Lactic Acid Calcium Ionized Calcium Phosphorus Magnesium Direct Bilirubin AST ALT Alkaline Phosphatase Lactate Dehydrogenase Troponin T C-Reactive Protein Total Protein Albumin Prealbumin Triglycerides Cholesterol LDL Cholesterol Direct HDL Cholesterol 25-OH Vitamin D Total PTH Intact Urine pH Urine WBC (Auto) Urine Creatinine Urine Total Protein Fluid Total Protein Vancomycin Trough Rheumatoid Factor Complement C4 Miscellaneous Test Crossmatch 12/15/16 12/16/16 12/16/16 23:34 05:25 11:24 WBC RBC Hgb Hct MCV MCH MCHC RDW Plt Count Lymph % (Auto) [place] % (Auto) Lymph # [place] # Baso # Seg Neutrophils % Seg Neuts % (Manual) Lymphocytes % (Manual) Monocytes % (Manual) Eosinophils % (Manual) Basophils % (Manual) Nucleated RBC % Seg Neutrophils # Seg Neutrophils # Man Lymphocytes # (Manual) Monocytes # (Manual) Eosinophils # (Manual) Basophils # (Manual) PT INR Fibrinogen dRVVT Confirm Interp Factor V Activity POC ABG pH POC ABG pCO2 POC ABG pO2 ABG pO2 ABG HCO3 ABG Base Excess ABG Hemoglobin Oxyhemoglobin Sodium Potassium Chloride Carbon Dioxide BUN Creatinine Glucose POC Glucose 127 H 139 H 165 H Lactic Acid Calcium Ionized Calcium Phosphorus Magnesium Direct Bilirubin AST ALT Alkaline Phosphatase Lactate Dehydrogenase Troponin T C-Reactive Protein Total Protein Albumin Prealbumin Triglycerides Cholesterol LDL Cholesterol Direct HDL Cholesterol 25-OH Vitamin D Total PTH Intact Urine pH Urine WBC (Auto) Urine Creatinine Urine Total Protein Fluid Total Protein Vancomycin Trough Rheumatoid Factor Complement C4 Miscellaneous Test Crossmatch 12/16/16 12/16/16 12/16/16 15:30 16:25 17:31 WBC 17.8 H RBC 2.38 L Hgb 6.4 L Hct 20.3 L MCV MCH 27 L MCHC RDW 17.4 H Plt Count Lymph % (Auto) [place] % (Auto) Lymph # [place] # Baso # Seg Neutrophils % Seg Neuts % (Manual) Lymphocytes % (Manual) Monocytes % (Manual) 10.0 H Eosinophils % (Manual) Basophils % (Manual) Nucleated RBC % Seg Neutrophils # Seg Neutrophils # Man 8.5 H Lymphocytes # (Manual) Monocytes # (Manual) 1.8 H Eosinophils # (Manual) Basophils # (Manual) PT INR Fibrinogen dRVVT Confirm Interp Factor V Activity POC ABG pH POC ABG pCO2 POC ABG pO2 ABG pO2 ABG HCO3 ABG Base Excess ABG Hemoglobin Oxyhemoglobin Sodium Potassium Chloride Carbon Dioxide BUN Creatinine Glucose POC Glucose 176 H Lactic Acid Calcium Ionized Calcium Phosphorus Magnesium Direct Bilirubin AST ALT Alkaline Phosphatase Lactate Dehydrogenase Troponin T C-Reactive Protein Total Protein Albumin Prealbumin Triglycerides Cholesterol LDL Cholesterol Direct HDL Cholesterol 25-OH Vitamin D Total PTH Intact Urine pH Urine WBC (Auto) Urine Creatinine Urine Total Protein Fluid Total Protein Vancomycin Trough Rheumatoid Factor Complement C4 Miscellaneous Test Crossmatch See Detail 12/17/16 12/17/16 12/17/16 00:14 04:00 05:00 WBC 20.0 H RBC 2.99 L Hgb 8.5 L Hct 25.7 L MCV MCH MCHC RDW 17.2 H Plt Count Lymph % (Auto) [place] % (Auto) Lymph # [place] # Baso # Seg Neutrophils % Seg Neuts % (Manual) Lymphocytes % (Manual) Monocytes % (Manual) Eosinophils % (Manual) Basophils % (Manual) Nucleated RBC % Seg Neutrophils # Seg Neutrophils # Man Lymphocytes # (Manual) Monocytes # (Manual) Eosinophils # (Manual) Basophils # (Manual) PT INR Fibrinogen dRVVT Confirm Interp Factor V Activity POC ABG pH POC ABG pCO2 POC ABG pO2 ABG pO2 ABG HCO3 ABG Base Excess ABG Hemoglobin Oxyhemoglobin Sodium Potassium Chloride 97.7 L Carbon Dioxide BUN 73 H Creatinine 1.7 H Glucose 136 H POC Glucose 148 H Lactic Acid Calcium Ionized Calcium Phosphorus 2.20 L Magnesium 2.70 H Direct Bilirubin AST ALT Alkaline Phosphatase Lactate Dehydrogenase Troponin T C-Reactive Protein Total Protein Albumin Prealbumin Triglycerides Cholesterol LDL Cholesterol Direct HDL Cholesterol 25-OH Vitamin D Total PTH Intact Urine pH Urine WBC (Auto) Urine Creatinine Urine Total Protein Fluid Total Protein Vancomycin Trough Rheumatoid Factor Complement C4 Miscellaneous Test Crossmatch 12/17/16 12/17/16 12/17/16 05:39 12:50 16:32 WBC RBC Hgb Hct MCV MCH MCHC RDW Plt Count Lymph % (Auto) [place] % (Auto) Lymph # [place] # Baso # Seg Neutrophils % Seg Neuts % (Manual) Lymphocytes % (Manual) Monocytes % (Manual) Eosinophils % (Manual) Basophils % (Manual) Nucleated RBC % Seg Neutrophils # Seg Neutrophils # Man Lymphocytes # (Manual) Monocytes # (Manual) Eosinophils # (Manual) Basophils # (Manual) PT INR Fibrinogen dRVVT Confirm Interp Factor V Activity POC ABG pH POC ABG pCO2 POC ABG pO2 ABG pO2 ABG HCO3 ABG Base Excess ABG Hemoglobin Oxyhemoglobin Sodium Potassium Chloride Carbon Dioxide BUN Creatinine Glucose POC Glucose 162 H 146 H 169 H Lactic Acid Calcium Ionized Calcium Phosphorus Magnesium Direct Bilirubin AST ALT Alkaline Phosphatase Lactate Dehydrogenase Troponin T C-Reactive Protein Total Protein Albumin Prealbumin Triglycerides Cholesterol LDL Cholesterol Direct HDL Cholesterol 25-OH Vitamin D Total PTH Intact Urine pH Urine WBC (Auto) Urine Creatinine Urine Total Protein Fluid Total Protein Vancomycin Trough Rheumatoid Factor Complement C4 Miscellaneous Test Crossmatch 12/17/16 12/18/16 12/18/16 23:57 05:00 05:32 WBC RBC Hgb Hct MCV MCH MCHC RDW Plt Count Lymph % (Auto) [place] % (Auto) Lymph # [place] # Baso # Seg Neutrophils % Seg Neuts % (Manual) Lymphocytes % (Manual) Monocytes % (Manual) Eosinophils % (Manual) Basophils % (Manual) Nucleated RBC % Seg Neutrophils # Seg Neutrophils # Man Lymphocytes # (Manual) Monocytes # (Manual) Eosinophils # (Manual) Basophils # (Manual) PT INR Fibrinogen dRVVT Confirm Interp Factor V Activity POC ABG pH POC ABG pCO2 POC ABG pO2 ABG pO2 ABG HCO3 ABG Base Excess ABG Hemoglobin Oxyhemoglobin Sodium Potassium Chloride 97.0 L Carbon Dioxide BUN 63 H Creatinine 1.4 H Glucose 174 H POC Glucose 145 H 201 H Lactic Acid Calcium Ionized Calcium Phosphorus 1.70 L D Magnesium Direct Bilirubin AST ALT Alkaline Phosphatase 257 H Lactate Dehydrogenase Troponin T C-Reactive Protein Total Protein 5.9 L Albumin 1.8 L Prealbumin Triglycerides Cholesterol LDL Cholesterol Direct HDL Cholesterol 25-OH Vitamin D Total PTH Intact Urine pH Urine WBC (Auto) Urine Creatinine Urine Total Protein Fluid Total Protein Vancomycin Trough Rheumatoid Factor Complement C4 Miscellaneous Test Crossmatch 12/18/16 12/18/16 12/18/16 11:43 16:52 23:52 WBC RBC Hgb Hct MCV MCH MCHC RDW Plt Count Lymph % (Auto) [place] % (Auto) Lymph # [place] # Baso # Seg Neutrophils % Seg Neuts % (Manual) Lymphocytes % (Manual) Monocytes % (Manual) Eosinophils % (Manual) Basophils % (Manual) Nucleated RBC % Seg Neutrophils # Seg Neutrophils # Man Lymphocytes # (Manual) Monocytes # (Manual) Eosinophils # (Manual) Basophils # (Manual) PT INR Fibrinogen dRVVT Confirm Interp Factor V Activity POC ABG pH POC ABG pCO2 POC ABG pO2 ABG pO2 ABG HCO3 ABG Base Excess ABG Hemoglobin Oxyhemoglobin Sodium Potassium Chloride Carbon Dioxide BUN Creatinine Glucose POC Glucose 177 H 110 H 162 H Lactic Acid Calcium Ionized Calcium Phosphorus Magnesium Direct Bilirubin AST ALT Alkaline Phosphatase Lactate Dehydrogenase Troponin T C-Reactive Protein Total Protein Albumin Prealbumin Triglycerides Cholesterol LDL Cholesterol Direct HDL Cholesterol 25-OH Vitamin D Total PTH Intact Urine pH Urine WBC (Auto) Urine Creatinine Urine Total Protein Fluid Total Protein Vancomycin Trough Rheumatoid Factor Complement C4 Miscellaneous Test Crossmatch 12/19/16 12/19/16 12/19/16 05:02 05:24 09:30 WBC 20.1 H RBC 2.73 L Hgb 7.6 L Hct 23.6 L MCV MCH MCHC RDW 17.6 H Plt Count Lymph % (Auto) [place] % (Auto) Lymph # [place] # Baso # Seg Neutrophils % Seg Neuts % (Manual) Lymphocytes % (Manual) 13.0 L Monocytes % (Manual) Eosinophils % (Manual) Basophils % (Manual) Nucleated RBC % 1.0 H Seg Neutrophils # Seg Neutrophils # Man 12.9 H Lymphocytes # (Manual) Monocytes # (Manual) 1.4 H Eosinophils # (Manual) Basophils # (Manual) 0.2 H PT INR Fibrinogen dRVVT Confirm Interp Factor V Activity POC ABG pH POC ABG pCO2 POC ABG pO2 ABG pO2 ABG HCO3 ABG Base Excess ABG Hemoglobin Oxyhemoglobin Sodium Potassium Chloride 97.8 L Carbon Dioxide BUN 84 H Creatinine 1.6 H Glucose 133 H POC Glucose 134 H Lactic Acid Calcium Ionized Calcium Phosphorus Magnesium Direct Bilirubin AST ALT Alkaline Phosphatase Lactate Dehydrogenase Troponin T C-Reactive Protein Total Protein Albumin Prealbumin Triglycerides Cholesterol LDL Cholesterol Direct HDL Cholesterol 25-OH Vitamin D Total PTH Intact Urine pH Urine WBC (Auto) Urine Creatinine Urine Total Protein Fluid Total Protein Vancomycin Trough Rheumatoid Factor Complement C4 Miscellaneous Test Crossmatch 12/19/16 12/19/16 12/19/16 09:36 11:12 18:29 WBC RBC Hgb Hct MCV MCH MCHC RDW Plt Count Lymph % (Auto) [place] % (Auto) Lymph # [place] # Baso # Seg Neutrophils % Seg Neuts % (Manual) Lymphocytes % (Manual) Monocytes % (Manual) Eosinophils % (Manual) Basophils % (Manual) Nucleated RBC % Seg Neutrophils # Seg Neutrophils # Man Lymphocytes # (Manual) Monocytes # (Manual) Eosinophils # (Manual) Basophils # (Manual) PT INR Fibrinogen dRVVT Confirm Interp Factor V Activity POC ABG pH 7.503 H POC ABG pCO2 30.1 L POC ABG pO2 ABG pO2 ABG HCO3 ABG Base Excess ABG Hemoglobin Oxyhemoglobin Sodium Potassium Chloride Carbon Dioxide BUN Creatinine Glucose POC Glucose 138 H 156 H Lactic Acid Calcium Ionized Calcium Phosphorus Magnesium Direct Bilirubin AST ALT Alkaline Phosphatase Lactate Dehydrogenase Troponin T C-Reactive Protein Total Protein Albumin Prealbumin Triglycerides Cholesterol LDL Cholesterol Direct HDL Cholesterol 25-OH Vitamin D Total PTH Intact Urine pH Urine WBC (Auto) Urine Creatinine Urine Total Protein Fluid Total Protein Vancomycin Trough Rheumatoid Factor Complement C4 Miscellaneous Test Crossmatch 12/20/16 12/20/16 12/20/16 00:03 06:17 07:07 WBC RBC Hgb Hct MCV MCH MCHC RDW Plt Count Lymph % (Auto) [place] % (Auto) Lymph # [place] # Baso # Seg Neutrophils % Seg Neuts % (Manual) Lymphocytes % (Manual) Monocytes % (Manual) Eosinophils % (Manual) Basophils % (Manual) Nucleated RBC % Seg Neutrophils # Seg Neutrophils # Man Lymphocytes # (Manual) Monocytes # (Manual) Eosinophils # (Manual) Basophils # (Manual) PT INR Fibrinogen dRVVT Confirm Interp Factor V Activity POC ABG pH POC ABG pCO2 POC ABG pO2 ABG pO2 ABG HCO3 ABG Base Excess ABG Hemoglobin Oxyhemoglobin Sodium Potassium Chloride 97.1 L Carbon Dioxide 20 L BUN 97 H Creatinine 1.8 H Glucose 153 H POC Glucose 152 H 175 H Lactic Acid Calcium Ionized Calcium Phosphorus Magnesium Direct Bilirubin AST ALT Alkaline Phosphatase Lactate Dehydrogenase Troponin T C-Reactive Protein Total Protein Albumin Prealbumin Triglycerides Cholesterol LDL Cholesterol Direct HDL Cholesterol 25-OH Vitamin D Total PTH Intact Urine pH Urine WBC (Auto) Urine Creatinine Urine Total Protein Fluid Total Protein Vancomycin Trough Rheumatoid Factor Complement C4 Miscellaneous Test Crossmatch 12/20/16 12/20/16 12/20/16 12:00 17:42 23:53 WBC RBC Hgb Hct MCV MCH MCHC RDW Plt Count Lymph % (Auto) [place] % (Auto) Lymph # [place] # Baso # Seg Neutrophils % Seg Neuts % (Manual) Lymphocytes % (Manual) Monocytes % (Manual) Eosinophils % (Manual) Basophils % (Manual) Nucleated RBC % Seg Neutrophils # Seg Neutrophils # Man Lymphocytes # (Manual) Monocytes # (Manual) Eosinophils # (Manual) Basophils # (Manual) PT INR Fibrinogen dRVVT Confirm Interp Factor V Activity POC ABG pH POC ABG pCO2 POC ABG pO2 ABG pO2 ABG HCO3 ABG Base Excess ABG Hemoglobin Oxyhemoglobin Sodium Potassium Chloride Carbon Dioxide BUN Creatinine Glucose POC Glucose 141 H 156 H 132 H Lactic Acid Calcium Ionized Calcium Phosphorus Magnesium Direct Bilirubin AST ALT Alkaline Phosphatase Lactate Dehydrogenase Troponin T C-Reactive Protein Total Protein Albumin Prealbumin Triglycerides Cholesterol LDL Cholesterol Direct HDL Cholesterol 25-OH Vitamin D Total PTH Intact Urine pH Urine WBC (Auto) Urine Creatinine Urine Total Protein Fluid Total Protein Vancomycin Trough Rheumatoid Factor Complement C4 Miscellaneous Test Crossmatch 12/21/16 12/21/16 12/21/16 05:49 08:50 12:19 WBC RBC Hgb Hct MCV MCH MCHC RDW Plt Count Lymph % (Auto) [place] % (Auto) Lymph # [place] # Baso # Seg Neutrophils % Seg Neuts % (Manual) Lymphocytes % (Manual) Monocytes % (Manual) Eosinophils % (Manual) Basophils % (Manual) Nucleated RBC % Seg Neutrophils # Seg Neutrophils # Man Lymphocytes # (Manual) Monocytes # (Manual) Eosinophils # (Manual) Basophils # (Manual) PT INR Fibrinogen dRVVT Confirm Interp Factor V Activity POC ABG pH POC ABG pCO2 POC ABG pO2 ABG pO2 ABG HCO3 ABG Base Excess ABG Hemoglobin Oxyhemoglobin Sodium Potassium 5.2 H D Chloride Carbon Dioxide BUN 63 H Creatinine Glucose 122 H POC Glucose 132 H 136 H Lactic Acid Calcium 8.3 L Ionized Calcium Phosphorus Magnesium Direct Bilirubin AST ALT Alkaline Phosphatase Lactate Dehydrogenase Troponin T C-Reactive Protein Total Protein Albumin Prealbumin Triglycerides Cholesterol LDL Cholesterol Direct HDL Cholesterol 25-OH Vitamin D Total PTH Intact Urine pH Urine WBC (Auto) Urine Creatinine Urine Total Protein Fluid Total Protein Vancomycin Trough Rheumatoid Factor Complement C4 Miscellaneous Test Crossmatch 12/21/16 12/21/16 12/22/16 17:22 23:58 05:49 WBC RBC Hgb Hct MCV MCH MCHC RDW Plt Count Lymph % (Auto) [place] % (Auto) Lymph # [place] # Baso # Seg Neutrophils % Seg Neuts % (Manual) Lymphocytes % (Manual) Monocytes % (Manual) Eosinophils % (Manual) Basophils % (Manual) Nucleated RBC % Seg Neutrophils # Seg Neutrophils # Man Lymphocytes # (Manual) Monocytes # (Manual) Eosinophils # (Manual) Basophils # (Manual) PT INR Fibrinogen dRVVT Confirm Interp Factor V Activity POC ABG pH POC ABG pCO2 POC ABG pO2 ABG pO2 ABG HCO3 ABG Base Excess ABG Hemoglobin Oxyhemoglobin Sodium Potassium Chloride Carbon Dioxide BUN Creatinine Glucose POC Glucose 135 H 149 H 140 H Lactic Acid Calcium Ionized Calcium Phosphorus Magnesium Direct Bilirubin AST ALT Alkaline Phosphatase Lactate Dehydrogenase Troponin T C-Reactive Protein Total Protein Albumin Prealbumin Triglycerides Cholesterol LDL Cholesterol Direct HDL Cholesterol 25-OH Vitamin D Total PTH Intact Urine pH Urine WBC (Auto) Urine Creatinine Urine Total Protein Fluid Total Protein Vancomycin Trough Rheumatoid Factor Complement C4 Miscellaneous Test Crossmatch 12/22/16 12/22/16 12/22/16 06:10 11:17 17:31 WBC RBC Hgb Hct MCV MCH MCHC RDW Plt Count Lymph % (Auto) [place] % (Auto) Lymph # [place] # Baso # Seg Neutrophils % Seg Neuts % (Manual) Lymphocytes % (Manual) Monocytes % (Manual) Eosinophils % (Manual) Basophils % (Manual) Nucleated RBC % Seg Neutrophils # Seg Neutrophils # Man Lymphocytes # (Manual) Monocytes # (Manual) Eosinophils # (Manual) Basophils # (Manual) PT INR Fibrinogen dRVVT Confirm Interp Factor V Activity POC ABG pH POC ABG pCO2 POC ABG pO2 ABG pO2 ABG HCO3 ABG Base Excess ABG Hemoglobin Oxyhemoglobin Sodium Potassium Chloride Carbon Dioxide BUN 76 H Creatinine 1.5 H Glucose 241 H POC Glucose 193 H 148 H Lactic Acid Calcium Ionized Calcium Phosphorus Magnesium Direct Bilirubin AST ALT Alkaline Phosphatase Lactate Dehydrogenase Troponin T C-Reactive Protein Total Protein Albumin Prealbumin Triglycerides Cholesterol LDL Cholesterol Direct HDL Cholesterol 25-OH Vitamin D Total PTH Intact Urine pH Urine WBC (Auto) Urine Creatinine Urine Total Protein Fluid Total Protein Vancomycin Trough Rheumatoid Factor Complement C4 Miscellaneous Test Crossmatch 12/22/16 12/23/16 12/23/16 23:58 05:00 05:26 WBC RBC Hgb Hct MCV MCH MCHC RDW Plt Count Lymph % (Auto) [place] % (Auto) Lymph # [place] # Baso # Seg Neutrophils % Seg Neuts % (Manual) Lymphocytes % (Manual) Monocytes % (Manual) Eosinophils % (Manual) Basophils % (Manual) Nucleated RBC % Seg Neutrophils # Seg Neutrophils # Man Lymphocytes # (Manual) Monocytes # (Manual) Eosinophils # (Manual) Basophils # (Manual) PT INR Fibrinogen dRVVT Confirm Interp Factor V Activity POC ABG pH POC ABG pCO2 POC ABG pO2 ABG pO2 ABG HCO3 ABG Base Excess ABG Hemoglobin Oxyhemoglobin Sodium Potassium Chloride Carbon Dioxide BUN 49 H Creatinine Glucose 143 H POC Glucose 165 H 154 H Lactic Acid Calcium 8.2 L Ionized Calcium Phosphorus Magnesium 1.60 L Direct Bilirubin AST ALT Alkaline Phosphatase Lactate Dehydrogenase Troponin T C-Reactive Protein Total Protein Albumin Prealbumin Triglycerides Cholesterol LDL Cholesterol Direct HDL Cholesterol 25-OH Vitamin D Total PTH Intact Urine pH Urine WBC (Auto) Urine Creatinine Urine Total Protein Fluid Total Protein Vancomycin Trough Rheumatoid Factor Complement C4 Miscellaneous Test Crossmatch 12/23/16 12/23/16 12/24/16 12:35 17:01 00:01 WBC RBC Hgb Hct MCV MCH MCHC RDW Plt Count Lymph % (Auto) [place] % (Auto) Lymph # [place] # Baso # Seg Neutrophils % Seg Neuts % (Manual) Lymphocytes % (Manual) Monocytes % (Manual) Eosinophils % (Manual) Basophils % (Manual) Nucleated RBC % Seg Neutrophils # Seg Neutrophils # Man Lymphocytes # (Manual) Monocytes # (Manual) Eosinophils # (Manual) Basophils # (Manual) PT INR Fibrinogen dRVVT Confirm Interp Factor V Activity POC ABG pH POC ABG pCO2 POC ABG pO2 ABG pO2 ABG HCO3 ABG Base Excess ABG Hemoglobin Oxyhemoglobin Sodium Potassium Chloride Carbon Dioxide BUN Creatinine Glucose POC Glucose 164 H 149 H 135 H Lactic Acid Calcium Ionized Calcium Phosphorus Magnesium Direct Bilirubin AST ALT Alkaline Phosphatase Lactate Dehydrogenase Troponin T C-Reactive Protein Total Protein Albumin Prealbumin Triglycerides Cholesterol LDL Cholesterol Direct HDL Cholesterol 25-OH Vitamin D Total PTH Intact Urine pH Urine WBC (Auto) Urine Creatinine Urine Total Protein Fluid Total Protein Vancomycin Trough Rheumatoid Factor Complement C4 Miscellaneous Test Crossmatch 12/24/16 12/24/16 12/24/16 05:41 07:01 11:38 WBC RBC Hgb Hct MCV MCH MCHC RDW Plt Count Lymph % (Auto) [place] % (Auto) Lymph # [place] # Baso # Seg Neutrophils % Seg Neuts % (Manual) Lymphocytes % (Manual) Monocytes % (Manual) Eosinophils % (Manual) Basophils % (Manual) Nucleated RBC % Seg Neutrophils # Seg Neutrophils # Man Lymphocytes # (Manual) Monocytes # (Manual) Eosinophils # (Manual) Basophils # (Manual) PT INR Fibrinogen dRVVT Confirm Interp Factor V Activity POC ABG pH POC ABG pCO2 POC ABG pO2 ABG pO2 ABG HCO3 ABG Base Excess ABG Hemoglobin Oxyhemoglobin Sodium Potassium Chloride Carbon Dioxide BUN 72 H Creatinine 1.3 H Glucose 130 H POC Glucose 132 H 156 H Lactic Acid Calcium 8.2 L Ionized Calcium Phosphorus Magnesium Direct Bilirubin AST ALT Alkaline Phosphatase Lactate Dehydrogenase Troponin T C-Reactive Protein Total Protein Albumin Prealbumin Triglycerides Cholesterol LDL Cholesterol Direct HDL Cholesterol 25-OH Vitamin D Total PTH Intact Urine pH Urine WBC (Auto) Urine Creatinine Urine Total Protein Fluid Total Protein Vancomycin Trough Rheumatoid Factor Complement C4 Miscellaneous Test Crossmatch 12/24/16 12/25/16 12/25/16 17:53 00:23 05:45 WBC RBC Hgb Hct MCV MCH MCHC RDW Plt Count Lymph % (Auto) [place] % (Auto) Lymph # [place] # Baso # Seg Neutrophils % Seg Neuts % (Manual) Lymphocytes % (Manual) Monocytes % (Manual) Eosinophils % (Manual) Basophils % (Manual) Nucleated RBC % Seg Neutrophils # Seg Neutrophils # Man Lymphocytes # (Manual) Monocytes # (Manual) Eosinophils # (Manual) Basophils # (Manual) PT INR Fibrinogen dRVVT Confirm Interp Factor V Activity POC ABG pH POC ABG pCO2 POC ABG pO2 ABG pO2 ABG HCO3 ABG Base Excess ABG Hemoglobin Oxyhemoglobin Sodium 146 H Potassium Chloride Carbon Dioxide BUN 51 H Creatinine Glucose 109 H POC Glucose 169 H 117 H Lactic Acid Calcium Ionized Calcium Phosphorus Magnesium Direct Bilirubin AST ALT Alkaline Phosphatase Lactate Dehydrogenase Troponin T C-Reactive Protein Total Protein Albumin Prealbumin Triglycerides Cholesterol LDL Cholesterol Direct HDL Cholesterol 25-OH Vitamin D Total PTH Intact Urine pH Urine WBC (Auto) Urine Creatinine Urine Total Protein Fluid Total Protein Vancomycin Trough Rheumatoid Factor Complement C4 Miscellaneous Test Crossmatch 12/25/16 12/25/16 12/25/16 06:43 11:29 17:14 WBC RBC Hgb Hct MCV MCH MCHC RDW Plt Count Lymph % (Auto) [place] % (Auto) Lymph # [place] # Baso # Seg Neutrophils % Seg Neuts % (Manual) Lymphocytes % (Manual) Monocytes % (Manual) Eosinophils % (Manual) Basophils % (Manual) Nucleated RBC % Seg Neutrophils # Seg Neutrophils # Man Lymphocytes # (Manual) Monocytes # (Manual) Eosinophils # (Manual) Basophils # (Manual) PT INR Fibrinogen dRVVT Confirm Interp Factor V Activity POC ABG pH POC ABG pCO2 POC ABG pO2 ABG pO2 ABG HCO3 ABG Base Excess ABG Hemoglobin Oxyhemoglobin Sodium Potassium Chloride Carbon Dioxide BUN Creatinine Glucose POC Glucose 117 H 128 H 120 H Lactic Acid Calcium Ionized Calcium Phosphorus Magnesium Direct Bilirubin AST ALT Alkaline Phosphatase Lactate Dehydrogenase Troponin T C-Reactive Protein Total Protein Albumin Prealbumin Triglycerides Cholesterol LDL Cholesterol Direct HDL Cholesterol 25-OH Vitamin D Total PTH Intact Urine pH Urine WBC (Auto) Urine Creatinine Urine Total Protein Fluid Total Protein Vancomycin Trough Rheumatoid Factor Complement C4 Miscellaneous Test Crossmatch 12/25/16 12/26/16 12/26/16 23:54 05:40 05:50 WBC 16.2 H RBC 2.32 L Hgb 6.2 L Hct 20.1 L MCV MCH 27 L MCHC RDW 18.6 H Plt Count Lymph % (Auto) [place] % (Auto) Lymph # [place] # Baso # Seg Neutrophils % Seg Neuts % (Manual) Lymphocytes % (Manual) Monocytes % (Manual) Eosinophils % (Manual) Basophils % (Manual) Nucleated RBC % Seg Neutrophils # Seg Neutrophils # Man Lymphocytes # (Manual) Monocytes # (Manual) Eosinophils # (Manual) Basophils # (Manual) PT INR Fibrinogen dRVVT Confirm Interp Factor V Activity POC ABG pH POC ABG pCO2 POC ABG pO2 ABG pO2 ABG HCO3 ABG Base Excess ABG Hemoglobin Oxyhemoglobin Sodium Potassium Chloride Carbon Dioxide BUN Creatinine Glucose POC Glucose 126 H 132 H Lactic Acid Calcium Ionized Calcium Phosphorus Magnesium Direct Bilirubin AST ALT Alkaline Phosphatase Lactate Dehydrogenase Troponin T C-Reactive Protein Total Protein Albumin Prealbumin Triglycerides Cholesterol LDL Cholesterol Direct HDL Cholesterol 25-OH Vitamin D Total PTH Intact Urine pH Urine WBC (Auto) Urine Creatinine Urine Total Protein Fluid Total Protein Vancomycin Trough Rheumatoid Factor Complement C4 Miscellaneous Test Crossmatch 12/26/16 12/26/16 12/26/16 05:50 12:17 12:33 WBC RBC Hgb Hct MCV MCH MCHC RDW Plt Count Lymph % (Auto) [place] % (Auto) Lymph # [place] # Baso # Seg Neutrophils % Seg Neuts % (Manual) Lymphocytes % (Manual) Monocytes % (Manual) Eosinophils % (Manual) Basophils % (Manual) Nucleated RBC % Seg Neutrophils # Seg Neutrophils # Man Lymphocytes # (Manual) Monocytes # (Manual) Eosinophils # (Manual) Basophils # (Manual) PT INR Fibrinogen dRVVT Confirm Interp Factor V Activity POC ABG pH POC ABG pCO2 POC ABG pO2 ABG pO2 ABG HCO3 ABG Base Excess ABG Hemoglobin Oxyhemoglobin Sodium Potassium Chloride Carbon Dioxide BUN 73 H Creatinine 1.3 H Glucose 113 H POC Glucose 117 H Lactic Acid Calcium Ionized Calcium Phosphorus Magnesium Direct Bilirubin AST ALT Alkaline Phosphatase Lactate Dehydrogenase Troponin T C-Reactive Protein Total Protein Albumin Prealbumin Triglycerides Cholesterol LDL Cholesterol Direct HDL Cholesterol 25-OH Vitamin D Total PTH Intact Urine pH Urine WBC (Auto) Urine Creatinine Urine Total Protein Fluid Total Protein Vancomycin Trough Rheumatoid Factor Complement C4 Miscellaneous Test Crossmatch See Detail 12/26/16 12/26/16 12/27/16 20:00 23:21 05:00 WBC RBC Hgb 8.4 L Hct 26.3 L D MCV MCH MCHC RDW Plt Count Lymph % (Auto) [place] % (Auto) Lymph # [place] # Baso # Seg Neutrophils % Seg Neuts % (Manual) Lymphocytes % (Manual) Monocytes % (Manual) Eosinophils % (Manual) Basophils % (Manual) Nucleated RBC % Seg Neutrophils # Seg Neutrophils # Man Lymphocytes # (Manual) Monocytes # (Manual) Eosinophils # (Manual) Basophils # (Manual) PT INR Fibrinogen dRVVT Confirm Interp Factor V Activity POC ABG pH POC ABG pCO2 POC ABG pO2 ABG pO2 ABG HCO3 ABG Base Excess ABG Hemoglobin Oxyhemoglobin Sodium Potassium Chloride Carbon Dioxide BUN 85 H Creatinine 1.6 H Glucose 118 H POC Glucose 124 H Lactic Acid Calcium Ionized Calcium Phosphorus 4.80 H Magnesium Direct Bilirubin AST ALT Alkaline Phosphatase Lactate Dehydrogenase Troponin T C-Reactive Protein Total Protein Albumin Prealbumin Triglycerides Cholesterol LDL Cholesterol Direct HDL Cholesterol 25-OH Vitamin D Total PTH Intact Urine pH Urine WBC (Auto) Urine Creatinine Urine Total Protein Fluid Total Protein Vancomycin Trough Rheumatoid Factor Complement C4 Miscellaneous Test Crossmatch 12/27/16 12/27/16 12/27/16 05:00 05:35 12:24 WBC RBC Hgb 7.6 L Hct 22.8 L MCV MCH MCHC RDW Plt Count Lymph % (Auto) [place] % (Auto) Lymph # [place] # Baso # Seg Neutrophils % Seg Neuts % (Manual) Lymphocytes % (Manual) Monocytes % (Manual) Eosinophils % (Manual) Basophils % (Manual) Nucleated RBC % Seg Neutrophils # Seg Neutrophils # Man Lymphocytes # (Manual) Monocytes # (Manual) Eosinophils # (Manual) Basophils # (Manual) PT INR Fibrinogen dRVVT Confirm Interp Factor V Activity POC ABG pH POC ABG pCO2 POC ABG pO2 ABG pO2 ABG HCO3 ABG Base Excess ABG Hemoglobin Oxyhemoglobin Sodium Potassium Chloride Carbon Dioxide BUN Creatinine Glucose POC Glucose 115 H 131 H Lactic Acid Calcium Ionized Calcium Phosphorus Magnesium Direct Bilirubin AST ALT Alkaline Phosphatase Lactate Dehydrogenase Troponin T C-Reactive Protein Total Protein Albumin Prealbumin Triglycerides Cholesterol LDL Cholesterol Direct HDL Cholesterol 25-OH Vitamin D Total PTH Intact Urine pH Urine WBC (Auto) Urine Creatinine Urine Total Protein Fluid Total Protein Vancomycin Trough Rheumatoid Factor Complement C4 Miscellaneous Test Crossmatch 12/27/16 12/28/16 12/28/16 17:16 00:18 04:00 WBC RBC Hgb Hct MCV MCH MCHC RDW Plt Count Lymph % (Auto) [place] % (Auto) Lymph # [place] # Baso # Seg Neutrophils % Seg Neuts % (Manual) Lymphocytes % (Manual) Monocytes % (Manual) Eosinophils % (Manual) Basophils % (Manual) Nucleated RBC % Seg Neutrophils # Seg Neutrophils # Man Lymphocytes # (Manual) Monocytes # (Manual) Eosinophils # (Manual) Basophils # (Manual) PT INR Fibrinogen dRVVT Confirm Interp Factor V Activity POC ABG pH POC ABG pCO2 POC ABG pO2 ABG pO2 ABG HCO3 ABG Base Excess ABG Hemoglobin Oxyhemoglobin Sodium Potassium 3.5 L Chloride Carbon Dioxide BUN 57 H Creatinine Glucose 118 H POC Glucose 136 H 120 H Lactic Acid Calcium 8.3 L Ionized Calcium Phosphorus Magnesium Direct Bilirubin AST ALT Alkaline Phosphatase Lactate Dehydrogenase Troponin T C-Reactive Protein Total Protein Albumin Prealbumin Triglycerides Cholesterol LDL Cholesterol Direct HDL Cholesterol 25-OH Vitamin D Total PTH Intact Urine pH Urine WBC (Auto) Urine Creatinine Urine Total Protein Fluid Total Protein Vancomycin Trough Rheumatoid Factor Complement C4 Miscellaneous Test Crossmatch 12/28/16 12/28/16 12/28/16 04:00 05:11 08:30 WBC 17.0 H RBC 2.58 L Hgb 7.1 L Hct 22.0 L MCV MCH MCHC RDW 17.6 H Plt Count Lymph % (Auto) 12.2 L [place] % (Auto) Lymph # [place] # 1.1 H Baso # Seg Neutrophils % 80.5 H Seg Neuts % (Manual) Lymphocytes % (Manual) Monocytes % (Manual) Eosinophils % (Manual) Basophils % (Manual) Nucleated RBC % Seg Neutrophils # 13.7 H Seg Neutrophils # Man Lymphocytes # (Manual) Monocytes # (Manual) Eosinophils # (Manual) Basophils # (Manual) PT 16.1 H INR 1.23 H Fibrinogen dRVVT Confirm Interp Factor V Activity POC ABG pH POC ABG pCO2 POC ABG pO2 ABG pO2 ABG HCO3 ABG Base Excess ABG Hemoglobin Oxyhemoglobin Sodium Potassium Chloride Carbon Dioxide BUN Creatinine Glucose POC Glucose 122 H Lactic Acid Calcium Ionized Calcium Phosphorus Magnesium Direct Bilirubin AST ALT Alkaline Phosphatase Lactate Dehydrogenase Troponin T C-Reactive Protein Total Protein Albumin Prealbumin Triglycerides Cholesterol LDL Cholesterol Direct HDL Cholesterol 25-OH Vitamin D Total PTH Intact Urine pH Urine WBC (Auto) Urine Creatinine Urine Total Protein Fluid Total Protein Vancomycin Trough Rheumatoid Factor Complement C4 Miscellaneous Test Crossmatch 12/28/16 12/28/16 12/28/16 12:27 16:32 23:46 WBC RBC Hgb Hct MCV MCH MCHC RDW Plt Count Lymph % (Auto) [place] % (Auto) Lymph # [place] # Baso # Seg Neutrophils % Seg Neuts % (Manual) Lymphocytes % (Manual) Monocytes % (Manual) Eosinophils % (Manual) Basophils % (Manual) Nucleated RBC % Seg Neutrophils # Seg Neutrophils # Man Lymphocytes # (Manual) Monocytes # (Manual) Eosinophils # (Manual) Basophils # (Manual) PT INR Fibrinogen dRVVT Confirm Interp Factor V Activity POC ABG pH POC ABG pCO2 POC ABG pO2 ABG pO2 ABG HCO3 ABG Base Excess ABG Hemoglobin Oxyhemoglobin Sodium Potassium Chloride Carbon Dioxide BUN Creatinine Glucose POC Glucose 127 H 117 H 108 H Lactic Acid Calcium Ionized Calcium Phosphorus Magnesium Direct Bilirubin AST ALT Alkaline Phosphatase Lactate Dehydrogenase Troponin T C-Reactive Protein Total Protein Albumin Prealbumin Triglycerides Cholesterol LDL Cholesterol Direct HDL Cholesterol 25-OH Vitamin D Total PTH Intact Urine pH Urine WBC (Auto) Urine Creatinine Urine Total Protein Fluid Total Protein Vancomycin Trough Rheumatoid Factor Complement C4 Miscellaneous Test Crossmatch 12/29/16 12/29/16 12/29/16 05:15 05:15 05:32 WBC RBC Hgb Hct MCV MCH MCHC RDW Plt Count Lymph % (Auto) [place] % (Auto) Lymph # [place] # Baso # Seg Neutrophils % Seg Neuts % (Manual) Lymphocytes % (Manual) Monocytes % (Manual) Eosinophils % (Manual) Basophils % (Manual) Nucleated RBC % Seg Neutrophils # Seg Neutrophils # Man Lymphocytes # (Manual) Monocytes # (Manual) Eosinophils # (Manual) Basophils # (Manual) PT INR Fibrinogen dRVVT Confirm Interp Factor V Activity POC ABG pH POC ABG pCO2 POC ABG pO2 ABG pO2 ABG HCO3 ABG Base Excess ABG Hemoglobin Oxyhemoglobin Sodium Potassium Chloride Carbon Dioxide BUN 74 H Creatinine 1.6 H Glucose 111 H POC Glucose 123 H Lactic Acid Calcium Ionized Calcium Phosphorus Magnesium Direct Bilirubin AST ALT Alkaline Phosphatase Lactate Dehydrogenase Troponin T C-Reactive Protein Total Protein Albumin Prealbumin 0.110 L Triglycerides Cholesterol LDL Cholesterol Direct HDL Cholesterol 25-OH Vitamin D Total PTH Intact Urine pH Urine WBC (Auto) Urine Creatinine Urine Total Protein Fluid Total Protein Vancomycin Trough Rheumatoid Factor Complement C4 Miscellaneous Test Crossmatch 12/29/16 12/29/16 12/29/16 11:43 13:45 14:00 WBC 13.8 H RBC 2.26 L Hgb 6.3 L Hct 20.4 L MCV MCH MCHC RDW 18.3 H Plt Count Lymph % (Auto) [place] % (Auto) Lymph # [place] # 0.9 H Baso # Seg Neutrophils % 78.6 H Seg Neuts % (Manual) Lymphocytes % (Manual) Monocytes % (Manual) Eosinophils % (Manual) Basophils % (Manual) Nucleated RBC % Seg Neutrophils # 10.8 H Seg Neutrophils # Man Lymphocytes # (Manual) Monocytes # (Manual) Eosinophils # (Manual) Basophils # (Manual) PT INR Fibrinogen dRVVT Confirm Interp Factor V Activity POC ABG pH POC ABG pCO2 POC ABG pO2 ABG pO2 ABG HCO3 ABG Base Excess ABG Hemoglobin Oxyhemoglobin Sodium Potassium Chloride Carbon Dioxide BUN Creatinine Glucose POC Glucose 133 H Lactic Acid Calcium Ionized Calcium Phosphorus Magnesium Direct Bilirubin AST ALT Alkaline Phosphatase Lactate Dehydrogenase Troponin T C-Reactive Protein Total Protein Albumin Prealbumin Triglycerides Cholesterol LDL Cholesterol Direct HDL Cholesterol 25-OH Vitamin D Total PTH Intact Urine pH Urine WBC (Auto) Urine Creatinine Urine Total Protein Fluid Total Protein Vancomycin Trough Rheumatoid Factor Complement C4 Miscellaneous Test Crossmatch See Detail 12/29/16 12/29/16 12/29/16 17:03 23:15 23:22 WBC RBC Hgb 7.3 L Hct 22.3 L MCV MCH MCHC RDW Plt Count Lymph % (Auto) [place] % (Auto) Lymph # [place] # Baso # Seg Neutrophils % Seg Neuts % (Manual) Lymphocytes % (Manual) Monocytes % (Manual) Eosinophils % (Manual) Basophils % (Manual) Nucleated RBC % Seg Neutrophils # Seg Neutrophils # Man Lymphocytes # (Manual) Monocytes # (Manual) Eosinophils # (Manual) Basophils # (Manual) PT INR Fibrinogen dRVVT Confirm Interp Factor V Activity POC ABG pH POC ABG pCO2 POC ABG pO2 ABG pO2 ABG HCO3 ABG Base Excess ABG Hemoglobin Oxyhemoglobin Sodium Potassium Chloride Carbon Dioxide BUN Creatinine Glucose POC Glucose 139 H 120 H Lactic Acid Calcium Ionized Calcium Phosphorus Magnesium Direct Bilirubin AST ALT Alkaline Phosphatase Lactate Dehydrogenase Troponin T C-Reactive Protein Total Protein Albumin Prealbumin Triglycerides Cholesterol LDL Cholesterol Direct HDL Cholesterol 25-OH Vitamin D Total PTH Intact Urine pH Urine WBC (Auto) Urine Creatinine Urine Total Protein Fluid Total Protein Vancomycin Trough Rheumatoid Factor Complement C4 Miscellaneous Test Crossmatch 12/30/16 12/30/16 12/30/16 04:20 04:20 05:43 WBC 15.6 H RBC 2.81 L Hgb 8.0 L Hct 24.0 L MCV MCH MCHC RDW 16.9 H Plt Count Lymph % (Auto) [place] % (Auto) Lymph # [place] # 1.0 H Baso # Seg Neutrophils % 76.2 H Seg Neuts % (Manual) Lymphocytes % (Manual) Monocytes % (Manual) Eosinophils % (Manual) Basophils % (Manual) Nucleated RBC % Seg Neutrophils # 11.9 H Seg Neutrophils # Man Lymphocytes # (Manual) Monocytes # (Manual) Eosinophils # (Manual) Basophils # (Manual) PT INR Fibrinogen dRVVT Confirm Interp Factor V Activity POC ABG pH POC ABG pCO2 POC ABG pO2 ABG pO2 ABG HCO3 ABG Base Excess ABG Hemoglobin Oxyhemoglobin Sodium Potassium Chloride Carbon Dioxide BUN 87 H Creatinine 1.8 H Glucose 119 H POC Glucose 115 H Lactic Acid Calcium Ionized Calcium Phosphorus Magnesium Direct Bilirubin AST ALT Alkaline Phosphatase Lactate Dehydrogenase Troponin T C-Reactive Protein Total Protein Albumin Prealbumin Triglycerides Cholesterol LDL Cholesterol Direct HDL Cholesterol 25-OH Vitamin D Total PTH Intact Urine pH Urine WBC (Auto) Urine Creatinine Urine Total Protein Fluid Total Protein Vancomycin Trough Rheumatoid Factor Complement C4 Miscellaneous Test Crossmatch 12/30/16 12/30/16 12/31/16 17:27 23:21 04:00 WBC RBC Hgb Hct MCV MCH MCHC RDW Plt Count Lymph % (Auto) [place] % (Auto) Lymph # [place] # Baso # Seg Neutrophils % Seg Neuts % (Manual) Lymphocytes % (Manual) Monocytes % (Manual) Eosinophils % (Manual) Basophils % (Manual) Nucleated RBC % Seg Neutrophils # Seg Neutrophils # Man Lymphocytes # (Manual) Monocytes # (Manual) Eosinophils # (Manual) Basophils # (Manual) PT INR Fibrinogen dRVVT Confirm Interp Factor V Activity POC ABG pH POC ABG pCO2 POC ABG pO2 ABG pO2 ABG HCO3 ABG Base Excess ABG Hemoglobin Oxyhemoglobin Sodium Potassium Chloride Carbon Dioxide BUN 59 H Creatinine Glucose 298 H POC Glucose 144 H 125 H Lactic Acid Calcium Ionized Calcium Phosphorus Magnesium Direct Bilirubin AST ALT Alkaline Phosphatase Lactate Dehydrogenase Troponin T C-Reactive Protein Total Protein Albumin Prealbumin Triglycerides Cholesterol LDL Cholesterol Direct HDL Cholesterol 25-OH Vitamin D Total PTH Intact Urine pH Urine WBC (Auto) Urine Creatinine Urine Total Protein Fluid Total Protein Vancomycin Trough Rheumatoid Factor Complement C4 Miscellaneous Test Crossmatch 12/31/16 12/31/16 12/31/16 05:11 12:18 18:17 WBC RBC Hgb Hct MCV MCH MCHC RDW Plt Count Lymph % (Auto) [place] % (Auto) Lymph # [place] # Baso # Seg Neutrophils % Seg Neuts % (Manual) Lymphocytes % (Manual) Monocytes % (Manual) Eosinophils % (Manual) Basophils % (Manual) Nucleated RBC % Seg Neutrophils # Seg Neutrophils # Man Lymphocytes # (Manual) Monocytes # (Manual) Eosinophils # (Manual) Basophils # (Manual) PT INR Fibrinogen dRVVT Confirm Interp Factor V Activity POC ABG pH POC ABG pCO2 POC ABG pO2 ABG pO2 ABG HCO3 ABG Base Excess ABG Hemoglobin Oxyhemoglobin Sodium Potassium Chloride Carbon Dioxide BUN Creatinine Glucose POC Glucose 167 H 125 H 133 H Lactic Acid Calcium Ionized Calcium Phosphorus Magnesium Direct Bilirubin AST ALT Alkaline Phosphatase Lactate Dehydrogenase Troponin T C-Reactive Protein Total Protein Albumin Prealbumin Triglycerides Cholesterol LDL Cholesterol Direct HDL Cholesterol 25-OH Vitamin D Total PTH Intact Urine pH Urine WBC (Auto) Urine Creatinine Urine Total Protein Fluid Total Protein Vancomycin Trough Rheumatoid Factor Complement C4 Miscellaneous Test Crossmatch 12/31/16 01/01/17 01/01/17 23:55 05:00 05:12 WBC RBC Hgb Hct MCV MCH MCHC RDW Plt Count Lymph % (Auto) [place] % (Auto) Lymph # [place] # Baso # Seg Neutrophils % Seg Neuts % (Manual) Lymphocytes % (Manual) Monocytes % (Manual) Eosinophils % (Manual) Basophils % (Manual) Nucleated RBC % Seg Neutrophils # Seg Neutrophils # Man Lymphocytes # (Manual) Monocytes # (Manual) Eosinophils # (Manual) Basophils # (Manual) PT INR Fibrinogen dRVVT Confirm Interp Factor V Activity POC ABG pH POC ABG pCO2 POC ABG pO2 ABG pO2 ABG HCO3 ABG Base Excess ABG Hemoglobin Oxyhemoglobin Sodium Potassium Chloride Carbon Dioxide BUN 76 H Creatinine 1.5 H Glucose 109 H POC Glucose 129 H 129 H Lactic Acid Calcium Ionized Calcium Phosphorus Magnesium Direct Bilirubin AST ALT Alkaline Phosphatase 536 H Lactate Dehydrogenase Troponin T C-Reactive Protein Total Protein Albumin 1.5 L Prealbumin Triglycerides Cholesterol LDL Cholesterol Direct HDL Cholesterol 25-OH Vitamin D Total PTH Intact Urine pH Urine WBC (Auto) Urine Creatinine Urine Total Protein Fluid Total Protein Vancomycin Trough Rheumatoid Factor Complement C4 Miscellaneous Test Crossmatch 01/01/17 01/01/17 01/01/17 12:25 17:01 23:32 WBC RBC Hgb Hct MCV MCH MCHC RDW Plt Count Lymph % (Auto) [place] % (Auto) Lymph # [place] # Baso # Seg Neutrophils % Seg Neuts % (Manual) Lymphocytes % (Manual) Monocytes % (Manual) Eosinophils % (Manual) Basophils % (Manual) Nucleated RBC % Seg Neutrophils # Seg Neutrophils # Man Lymphocytes # (Manual) Monocytes # (Manual) Eosinophils # (Manual) Basophils # (Manual) PT INR Fibrinogen dRVVT Confirm Interp Factor V Activity POC ABG pH POC ABG pCO2 POC ABG pO2 ABG pO2 ABG HCO3 ABG Base Excess ABG Hemoglobin Oxyhemoglobin Sodium Potassium Chloride Carbon Dioxide BUN Creatinine Glucose POC Glucose 140 H 142 H 112 H Lactic Acid Calcium Ionized Calcium Phosphorus Magnesium Direct Bilirubin AST ALT Alkaline Phosphatase Lactate Dehydrogenase Troponin T C-Reactive Protein Total Protein Albumin Prealbumin Triglycerides Cholesterol LDL Cholesterol Direct HDL Cholesterol 25-OH Vitamin D Total PTH Intact Urine pH Urine WBC (Auto) Urine Creatinine Urine Total Protein Fluid Total Protein Vancomycin Trough Rheumatoid Factor Complement C4 Miscellaneous Test Crossmatch 01/02/17 01/02/17 01/02/17 04:56 06:00 11:37 WBC RBC Hgb Hct MCV MCH MCHC RDW Plt Count Lymph % (Auto) [place] % (Auto) Lymph # [place] # Baso # Seg Neutrophils % Seg Neuts % (Manual) Lymphocytes % (Manual) Monocytes % (Manual) Eosinophils % (Manual) Basophils % (Manual) Nucleated RBC % Seg Neutrophils # Seg Neutrophils # Man Lymphocytes # (Manual) Monocytes # (Manual) Eosinophils # (Manual) Basophils # (Manual) PT INR Fibrinogen dRVVT Confirm Interp Factor V Activity POC ABG pH POC ABG pCO2 POC ABG pO2 ABG pO2 ABG HCO3 ABG Base Excess ABG Hemoglobin Oxyhemoglobin Sodium Potassium Chloride Carbon Dioxide BUN 88 H Creatinine 1.7 H Glucose 113 H POC Glucose 136 H 200 H Lactic Acid Calcium Ionized Calcium Phosphorus Magnesium Direct Bilirubin AST ALT Alkaline Phosphatase Lactate Dehydrogenase Troponin T C-Reactive Protein Total Protein Albumin Prealbumin Triglycerides Cholesterol LDL Cholesterol Direct HDL Cholesterol 25-OH Vitamin D Total PTH Intact Urine pH Urine WBC (Auto) Urine Creatinine Urine Total Protein Fluid Total Protein Vancomycin Trough Rheumatoid Factor Complement C4 Miscellaneous Test Crossmatch 01/02/17 01/02/17 01/03/17 17:42 22:52 04:54 WBC RBC Hgb Hct MCV MCH MCHC RDW Plt Count Lymph % (Auto) [place] % (Auto) Lymph # [place] # Baso # Seg Neutrophils % Seg Neuts % (Manual) Lymphocytes % (Manual) Monocytes % (Manual) Eosinophils % (Manual) Basophils % (Manual) Nucleated RBC % Seg Neutrophils # Seg Neutrophils # Man Lymphocytes # (Manual) Monocytes # (Manual) Eosinophils # (Manual) Basophils # (Manual) PT INR Fibrinogen dRVVT Confirm Interp Factor V Activity POC ABG pH POC ABG pCO2 POC ABG pO2 ABG pO2 ABG HCO3 ABG Base Excess ABG Hemoglobin Oxyhemoglobin Sodium Potassium Chloride Carbon Dioxide BUN Creatinine Glucose POC Glucose 112 H 133 H 111 H Lactic Acid Calcium Ionized Calcium Phosphorus Magnesium Direct Bilirubin AST ALT Alkaline Phosphatase Lactate Dehydrogenase Troponin T C-Reactive Protein Total Protein Albumin Prealbumin Triglycerides Cholesterol LDL Cholesterol Direct HDL Cholesterol 25-OH Vitamin D Total PTH Intact Urine pH Urine WBC (Auto) Urine Creatinine Urine Total Protein Fluid Total Protein Vancomycin Trough Rheumatoid Factor Complement C4 Miscellaneous Test Crossmatch 01/03/17 01/03/17 01/03/17 05:00 05:00 14:02 WBC 11.2 H RBC 2.56 L Hgb 7.2 L Hct 22.3 L MCV MCH MCHC RDW 17.3 H Plt Count Lymph % (Auto) [place] % (Auto) 10.0 H Lymph # [place] # 1.1 H Baso # Seg Neutrophils % 70.5 H Seg Neuts % (Manual) Lymphocytes % (Manual) Monocytes % (Manual) Eosinophils % (Manual) Basophils % (Manual) Nucleated RBC % Seg Neutrophils # 7.9 H Seg Neutrophils # Man Lymphocytes # (Manual) Monocytes # (Manual) Eosinophils # (Manual) Basophils # (Manual) PT INR Fibrinogen dRVVT Confirm Interp Factor V Activity POC ABG pH POC ABG pCO2 POC ABG pO2 ABG pO2 ABG HCO3 ABG Base Excess ABG Hemoglobin Oxyhemoglobin Sodium Potassium Chloride Carbon Dioxide BUN 60 H Creatinine 1.3 H Glucose 110 H POC Glucose 119 H Lactic Acid Calcium Ionized Calcium Phosphorus Magnesium Direct Bilirubin AST ALT Alkaline Phosphatase Lactate Dehydrogenase Troponin T C-Reactive Protein Total Protein Albumin Prealbumin Triglycerides Cholesterol LDL Cholesterol Direct HDL Cholesterol 25-OH Vitamin D Total PTH Intact Urine pH Urine WBC (Auto) Urine Creatinine Urine Total Protein Fluid Total Protein Vancomycin Trough Rheumatoid Factor Complement C4 Miscellaneous Test Crossmatch 01/03/17 01/03/17 01/04/17 18:13 23:40 05:57 WBC RBC Hgb Hct MCV MCH MCHC RDW Plt Count Lymph % (Auto) [place] % (Auto) Lymph # [place] # Baso # Seg Neutrophils % Seg Neuts % (Manual) Lymphocytes % (Manual) Monocytes % (Manual) Eosinophils % (Manual) Basophils % (Manual) Nucleated RBC % Seg Neutrophils # Seg Neutrophils # Man Lymphocytes # (Manual) Monocytes # (Manual) Eosinophils # (Manual) Basophils # (Manual) PT INR Fibrinogen dRVVT Confirm Interp Factor V Activity POC ABG pH POC ABG pCO2 POC ABG pO2 ABG pO2 ABG HCO3 ABG Base Excess ABG Hemoglobin Oxyhemoglobin Sodium Potassium Chloride Carbon Dioxide BUN Creatinine Glucose POC Glucose 107 H 129 H 111 H Lactic Acid Calcium Ionized Calcium Phosphorus Magnesium Direct Bilirubin AST ALT Alkaline Phosphatase Lactate Dehydrogenase Troponin T C-Reactive Protein Total Protein Albumin Prealbumin Triglycerides Cholesterol LDL Cholesterol Direct HDL Cholesterol 25-OH Vitamin D Total PTH Intact Urine pH Urine WBC (Auto) Urine Creatinine Urine Total Protein Fluid Total Protein Vancomycin Trough Rheumatoid Factor Complement C4 Miscellaneous Test Crossmatch 01/04/17 01/04/17 01/04/17 12:46 15:27 17:11 WBC RBC Hgb Hct MCV MCH MCHC RDW Plt Count Lymph % (Auto) [place] % (Auto) Lymph # [place] # Baso # Seg Neutrophils % Seg Neuts % (Manual) Lymphocytes % (Manual) Monocytes % (Manual) Eosinophils % (Manual) Basophils % (Manual) Nucleated RBC % Seg Neutrophils # Seg Neutrophils # Man Lymphocytes # (Manual) Monocytes # (Manual) Eosinophils # (Manual) Basophils # (Manual) PT INR Fibrinogen dRVVT Confirm Interp Factor V Activity POC ABG pH POC ABG pCO2 POC ABG pO2 ABG pO2 ABG HCO3 ABG Base Excess ABG Hemoglobin Oxyhemoglobin Sodium Potassium Chloride Carbon Dioxide BUN 43 H Creatinine Glucose 124 H POC Glucose 159 H 125 H Lactic Acid Calcium 8.0 L Ionized Calcium Phosphorus 2.10 L Magnesium Direct Bilirubin AST ALT Alkaline Phosphatase Lactate Dehydrogenase Troponin T C-Reactive Protein Total Protein Albumin Prealbumin Triglycerides Cholesterol LDL Cholesterol Direct HDL Cholesterol 25-OH Vitamin D Total PTH Intact Urine pH Urine WBC (Auto) Urine Creatinine Urine Total Protein Fluid Total Protein Vancomycin Trough Rheumatoid Factor Complement C4 Miscellaneous Test Crossmatch 01/04/17 01/05/17 01/05/17 23:31 04:00 05:46 WBC RBC Hgb Hct MCV MCH MCHC RDW Plt Count Lymph % (Auto) [place] % (Auto) Lymph # [place] # Baso # Seg Neutrophils % Seg Neuts % (Manual) Lymphocytes % (Manual) Monocytes % (Manual) Eosinophils % (Manual) Basophils % (Manual) Nucleated RBC % Seg Neutrophils # Seg Neutrophils # Man Lymphocytes # (Manual) Monocytes # (Manual) Eosinophils # (Manual) Basophils # (Manual) PT INR Fibrinogen dRVVT Confirm Interp Factor V Activity POC ABG pH POC ABG pCO2 POC ABG pO2 ABG pO2 ABG HCO3 ABG Base Excess ABG Hemoglobin Oxyhemoglobin Sodium Potassium Chloride Carbon Dioxide BUN 52 H Creatinine 1.3 H Glucose 113 H POC Glucose 123 H 118 H Lactic Acid Calcium Ionized Calcium Phosphorus 2.40 L Magnesium Direct Bilirubin AST ALT Alkaline Phosphatase Lactate Dehydrogenase Troponin T C-Reactive Protein Total Protein Albumin Prealbumin Triglycerides Cholesterol LDL Cholesterol Direct HDL Cholesterol 25-OH Vitamin D Total PTH Intact Urine pH Urine WBC (Auto) Urine Creatinine Urine Total Protein Fluid Total Protein Vancomycin Trough Rheumatoid Factor Complement C4 Miscellaneous Test Crossmatch 01/05/17 01/05/17 01/05/17 11:41 17:48 23:27 WBC RBC Hgb Hct MCV MCH MCHC RDW Plt Count Lymph % (Auto) [place] % (Auto) Lymph # [place] # Baso # Seg Neutrophils % Seg Neuts % (Manual) Lymphocytes % (Manual) Monocytes % (Manual) Eosinophils % (Manual) Basophils % (Manual) Nucleated RBC % Seg Neutrophils # Seg Neutrophils # Man Lymphocytes # (Manual) Monocytes # (Manual) Eosinophils # (Manual) Basophils # (Manual) PT INR Fibrinogen dRVVT Confirm Interp Factor V Activity POC ABG pH POC ABG pCO2 POC ABG pO2 ABG pO2 ABG HCO3 ABG Base Excess ABG Hemoglobin Oxyhemoglobin Sodium Potassium Chloride Carbon Dioxide BUN Creatinine Glucose POC Glucose 163 H 142 H 155 H Lactic Acid Calcium Ionized Calcium Phosphorus Magnesium Direct Bilirubin AST ALT Alkaline Phosphatase Lactate Dehydrogenase Troponin T C-Reactive Protein Total Protein Albumin Prealbumin Triglycerides Cholesterol LDL Cholesterol Direct HDL Cholesterol 25-OH Vitamin D Total PTH Intact Urine pH Urine WBC (Auto) Urine Creatinine Urine Total Protein Fluid Total Protein Vancomycin Trough Rheumatoid Factor Complement C4 Miscellaneous Test Crossmatch 01/06/17 01/06/17 01/06/17 05:20 07:35 11:18 WBC RBC Hgb Hct MCV MCH MCHC RDW Plt Count Lymph % (Auto) [place] % (Auto) Lymph # [place] # Baso # Seg Neutrophils % Seg Neuts % (Manual) Lymphocytes % (Manual) Monocytes % (Manual) Eosinophils % (Manual) Basophils % (Manual) Nucleated RBC % Seg Neutrophils # Seg Neutrophils # Man Lymphocytes # (Manual) Monocytes # (Manual) Eosinophils # (Manual) Basophils # (Manual) PT INR Fibrinogen dRVVT Confirm Interp Factor V Activity POC ABG pH POC ABG pCO2 POC ABG pO2 ABG pO2 ABG HCO3 ABG Base Excess ABG Hemoglobin Oxyhemoglobin Sodium Potassium Chloride Carbon Dioxide BUN 74 H Creatinine 1.6 H Glucose 135 H POC Glucose 108 H 149 H Lactic Acid Calcium Ionized Calcium Phosphorus Magnesium Direct Bilirubin AST ALT Alkaline Phosphatase Lactate Dehydrogenase Troponin T C-Reactive Protein Total Protein Albumin Prealbumin Triglycerides Cholesterol LDL Cholesterol Direct HDL Cholesterol 25-OH Vitamin D Total PTH Intact Urine pH Urine WBC (Auto) Urine Creatinine Urine Total Protein Fluid Total Protein Vancomycin Trough Rheumatoid Factor Complement C4 Miscellaneous Test Crossmatch 01/06/17 01/07/17 01/07/17 17:17 00:23 05:31 WBC RBC Hgb Hct MCV MCH MCHC RDW Plt Count Lymph % (Auto) [place] % (Auto) Lymph # [place] # Baso # Seg Neutrophils % Seg Neuts % (Manual) Lymphocytes % (Manual) Monocytes % (Manual) Eosinophils % (Manual) Basophils % (Manual) Nucleated RBC % Seg Neutrophils # Seg Neutrophils # Man Lymphocytes # (Manual) Monocytes # (Manual) Eosinophils # (Manual) Basophils # (Manual) PT INR Fibrinogen dRVVT Confirm Interp Factor V Activity POC ABG pH POC ABG pCO2 POC ABG pO2 ABG pO2 ABG HCO3 ABG Base Excess ABG Hemoglobin Oxyhemoglobin Sodium Potassium Chloride Carbon Dioxide BUN Creatinine Glucose POC Glucose 146 H 165 H 153 H Lactic Acid Calcium Ionized Calcium Phosphorus Magnesium Direct Bilirubin AST ALT Alkaline Phosphatase Lactate Dehydrogenase Troponin T C-Reactive Protein Total Protein Albumin Prealbumin Triglycerides Cholesterol LDL Cholesterol Direct HDL Cholesterol 25-OH Vitamin D Total PTH Intact Urine pH Urine WBC (Auto) Urine Creatinine Urine Total Protein Fluid Total Protein Vancomycin Trough Rheumatoid Factor Complement C4 Miscellaneous Test Crossmatch 01/07/17 01/07/17 01/07/17 06:00 11:39 17:11 WBC RBC Hgb Hct MCV MCH MCHC RDW Plt Count Lymph % (Auto) [place] % (Auto) Lymph # [place] # Baso # Seg Neutrophils % Seg Neuts % (Manual) Lymphocytes % (Manual) Monocytes % (Manual) Eosinophils % (Manual) Basophils % (Manual) Nucleated RBC % Seg Neutrophils # Seg Neutrophils # Man Lymphocytes # (Manual) Monocytes # (Manual) Eosinophils # (Manual) Basophils # (Manual) PT INR Fibrinogen dRVVT Confirm Interp Factor V Activity POC ABG pH POC ABG pCO2 POC ABG pO2 ABG pO2 ABG HCO3 ABG Base Excess ABG Hemoglobin Oxyhemoglobin Sodium Potassium Chloride Carbon Dioxide BUN 42 H Creatinine Glucose 175 H POC Glucose 163 H 163 H Lactic Acid Calcium Ionized Calcium Phosphorus 2.40 L D Magnesium Direct Bilirubin AST ALT Alkaline Phosphatase Lactate Dehydrogenase Troponin T C-Reactive Protein Total Protein Albumin Prealbumin Triglycerides Cholesterol LDL Cholesterol Direct HDL Cholesterol 25-OH Vitamin D Total PTH Intact Urine pH Urine WBC (Auto) Urine Creatinine Urine Total Protein Fluid Total Protein Vancomycin Trough Rheumatoid Factor Complement C4 Miscellaneous Test Crossmatch 01/07/17 01/08/17 01/08/17 23:40 05:00 05:00 WBC 27.4 H RBC 2.27 L Hgb 6.1 L Hct 20.4 L MCV MCH 27 L MCHC RDW 17.8 H Plt Count Lymph % (Auto) [place] % (Auto) Lymph # [place] # Baso # Seg Neutrophils % Seg Neuts % (Manual) Lymphocytes % (Manual) Monocytes % (Manual) Eosinophils % (Manual) Basophils % (Manual) Nucleated RBC % Seg Neutrophils # Seg Neutrophils # Man Lymphocytes # (Manual) Monocytes # (Manual) Eosinophils # (Manual) Basophils # (Manual) PT INR Fibrinogen dRVVT Confirm Interp Factor V Activity POC ABG pH POC ABG pCO2 POC ABG pO2 ABG pO2 ABG HCO3 ABG Base Excess ABG Hemoglobin Oxyhemoglobin Sodium Potassium Chloride Carbon Dioxide 16 L D BUN 62 H Creatinine 1.6 H D Glucose 103 H POC Glucose 135 H Lactic Acid Calcium Ionized Calcium Phosphorus Magnesium Direct Bilirubin AST ALT Alkaline Phosphatase Lactate Dehydrogenase Troponin T C-Reactive Protein Total Protein Albumin Prealbumin Triglycerides Cholesterol LDL Cholesterol Direct HDL Cholesterol 25-OH Vitamin D Total PTH Intact Urine pH Urine WBC (Auto) Urine Creatinine Urine Total Protein Fluid Total Protein Vancomycin Trough Rheumatoid Factor Complement C4 Miscellaneous Test Crossmatch 01/08/17 01/08/17 01/08/17 05:25 10:37 10:37 WBC RBC Hgb Hct MCV MCH MCHC RDW Plt Count Lymph % (Auto) [place] % (Auto) Lymph # [place] # Baso # Seg Neutrophils % Seg Neuts % (Manual) Lymphocytes % (Manual) Monocytes % (Manual) Eosinophils % (Manual) Basophils % (Manual) Nucleated RBC % Seg Neutrophils # Seg Neutrophils # Man Lymphocytes # (Manual) Monocytes # (Manual) Eosinophils # (Manual) Basophils # (Manual) PT INR Fibrinogen dRVVT Confirm Interp Factor V Activity POC ABG pH POC ABG pCO2 POC ABG pO2 ABG pO2 ABG HCO3 ABG Base Excess ABG Hemoglobin Oxyhemoglobin Sodium Potassium Chloride Carbon Dioxide BUN Creatinine Glucose POC Glucose 106 H Lactic Acid Calcium Ionized Calcium Phosphorus Magnesium Direct Bilirubin AST ALT Alkaline Phosphatase Lactate Dehydrogenase Troponin T C-Reactive Protein 24.40 H Total Protein Albumin Prealbumin Triglycerides Cholesterol LDL Cholesterol Direct HDL Cholesterol 25-OH Vitamin D Total PTH Intact Urine pH Urine WBC (Auto) Urine Creatinine Urine Total Protein Fluid Total Protein Vancomycin Trough Rheumatoid Factor Complement C4 Miscellaneous Test Crossmatch See Detail 01/08/17 01/08/17 01/08/17 10:37 11:33 15:15 WBC RBC Hgb Hct MCV MCH MCHC RDW Plt Count Lymph % (Auto) [place] % (Auto) Lymph # [place] # Baso # Seg Neutrophils % Seg Neuts % (Manual) Lymphocytes % (Manual) Monocytes % (Manual) Eosinophils % (Manual) Basophils % (Manual) Nucleated RBC % Seg Neutrophils # Seg Neutrophils # Man Lymphocytes # (Manual) Monocytes # (Manual) Eosinophils # (Manual) Basophils # (Manual) PT INR Fibrinogen dRVVT Confirm Interp Factor V Activity POC ABG pH POC ABG pCO2 POC ABG pO2 ABG pO2 ABG HCO3 ABG Base Excess ABG Hemoglobin Oxyhemoglobin Sodium Potassium Chloride Carbon Dioxide BUN Creatinine Glucose POC Glucose 157 H Lactic Acid 9.70 H* 9.10 H* Calcium Ionized Calcium Phosphorus Magnesium Direct Bilirubin AST ALT Alkaline Phosphatase Lactate Dehydrogenase Troponin T C-Reactive Protein Total Protein Albumin Prealbumin Triglycerides Cholesterol LDL Cholesterol Direct HDL Cholesterol 25-OH Vitamin D Total PTH Intact Urine pH Urine WBC (Auto) Urine Creatinine Urine Total Protein Fluid Total Protein Vancomycin Trough Rheumatoid Factor Complement C4 Miscellaneous Test Crossmatch 01/08/17 01/08/17 01/09/17 17:19 23:12 04:40 WBC RBC Hgb Hct MCV MCH MCHC RDW Plt Count Lymph % (Auto) [place] % (Auto) Lymph # [place] # Baso # Seg Neutrophils % Seg Neuts % (Manual) Lymphocytes % (Manual) Monocytes % (Manual) Eosinophils % (Manual) Basophils % (Manual) Nucleated RBC % Seg Neutrophils # Seg Neutrophils # Man Lymphocytes # (Manual) Monocytes # (Manual) Eosinophils # (Manual) Basophils # (Manual) PT INR Fibrinogen dRVVT Confirm Interp Factor V Activity POC ABG pH POC ABG pCO2 POC ABG pO2 ABG pO2 ABG HCO3 ABG Base Excess ABG Hemoglobin Oxyhemoglobin Sodium 147 H Potassium Chloride Carbon Dioxide BUN 82 H Creatinine 1.8 H Glucose 137 H POC Glucose 164 H 157 H Lactic Acid Calcium Ionized Calcium Phosphorus Magnesium Direct Bilirubin AST ALT Alkaline Phosphatase Lactate Dehydrogenase Troponin T C-Reactive Protein Total Protein Albumin Prealbumin Triglycerides Cholesterol LDL Cholesterol Direct HDL Cholesterol 25-OH Vitamin D Total PTH Intact Urine pH Urine WBC (Auto) Urine Creatinine Urine Total Protein Fluid Total Protein Vancomycin Trough Rheumatoid Factor Complement C4 Miscellaneous Test Crossmatch 01/09/17 01/09/17 01/09/17 05:42 08:22 10:57 WBC RBC Hgb Hct MCV MCH MCHC RDW Plt Count Lymph % (Auto) [place] % (Auto) Lymph # [place] # Baso # Seg Neutrophils % Seg Neuts % (Manual) Lymphocytes % (Manual) Monocytes % (Manual) Eosinophils % (Manual) Basophils % (Manual) Nucleated RBC % Seg Neutrophils # Seg Neutrophils # Man Lymphocytes # (Manual) Monocytes # (Manual) Eosinophils # (Manual) Basophils # (Manual) PT INR Fibrinogen dRVVT Confirm Interp Factor V Activity POC ABG pH POC ABG pCO2 POC ABG pO2 ABG pO2 ABG HCO3 ABG Base Excess ABG Hemoglobin Oxyhemoglobin Sodium Potassium Chloride Carbon Dioxide BUN Creatinine Glucose POC Glucose 156 H 122 H Lactic Acid 2.30 H* Calcium Ionized Calcium Phosphorus Magnesium Direct Bilirubin AST ALT Alkaline Phosphatase Lactate Dehydrogenase Troponin T C-Reactive Protein Total Protein Albumin Prealbumin Triglycerides Cholesterol LDL Cholesterol Direct HDL Cholesterol 25-OH Vitamin D Total PTH Intact Urine pH Urine WBC (Auto) Urine Creatinine Urine Total Protein Fluid Total Protein Vancomycin Trough Rheumatoid Factor Complement C4 Miscellaneous Test Crossmatch 01/09/17 01/09/17 01/09/17 13:30 17:14 18:45 WBC RBC Hgb Hct MCV MCH MCHC RDW Plt Count Lymph % (Auto) [place] % (Auto) Lymph # [place] # Baso # Seg Neutrophils % Seg Neuts % (Manual) Lymphocytes % (Manual) Monocytes % (Manual) Eosinophils % (Manual) Basophils % (Manual) Nucleated RBC % Seg Neutrophils # Seg Neutrophils # Man Lymphocytes # (Manual) Monocytes # (Manual) Eosinophils # (Manual) Basophils # (Manual) PT INR Fibrinogen dRVVT Confirm Interp Factor V Activity POC ABG pH POC ABG pCO2 POC ABG pO2 ABG pO2 ABG HCO3 ABG Base Excess ABG Hemoglobin Oxyhemoglobin Sodium Potassium Chloride Carbon Dioxide BUN Creatinine Glucose POC Glucose 127 H Lactic Acid Calcium Ionized Calcium Phosphorus Magnesium Direct Bilirubin AST ALT Alkaline Phosphatase Lactate Dehydrogenase Troponin T C-Reactive Protein 24.70 H Total Protein Albumin Prealbumin Triglycerides Cholesterol LDL Cholesterol Direct HDL Cholesterol 25-OH Vitamin D Total PTH Intact Urine pH Urine WBC (Auto) Urine Creatinine Urine Total Protein Fluid Total Protein Vancomycin Trough Rheumatoid Factor Complement C4 Miscellaneous Test Flexitest 1 H Crossmatch 01/10/17 01/10/17 01/10/17 01:21 04:00 04:00 WBC 18.1 H RBC 3.22 L Hgb 8.8 L Hct 27.0 L D MCV MCH 27 L MCHC RDW 17.0 H Plt Count Lymph % (Auto) [place] % (Auto) Lymph # [place] # Baso # Seg Neutrophils % Seg Neuts % (Manual) Lymphocytes % (Manual) Monocytes % (Manual) Eosinophils % (Manual) Basophils % (Manual) Nucleated RBC % Seg Neutrophils # Seg Neutrophils # Man Lymphocytes # (Manual) Monocytes # (Manual) Eosinophils # (Manual) Basophils # (Manual) PT INR Fibrinogen dRVVT Confirm Interp Factor V Activity POC ABG pH POC ABG pCO2 POC ABG pO2 ABG pO2 ABG HCO3 ABG Base Excess ABG Hemoglobin Oxyhemoglobin Sodium Potassium Chloride Carbon Dioxide BUN 59 H Creatinine 1.3 H Glucose 122 H POC Glucose 160 H Lactic Acid Calcium Ionized Calcium Phosphorus Magnesium Direct Bilirubin AST ALT Alkaline Phosphatase Lactate Dehydrogenase Troponin T C-Reactive Protein Total Protein Albumin Prealbumin Triglycerides Cholesterol LDL Cholesterol Direct HDL Cholesterol 25-OH Vitamin D Total PTH Intact Urine pH Urine WBC (Auto) Urine Creatinine Urine Total Protein Fluid Total Protein Vancomycin Trough Rheumatoid Factor Complement C4 Miscellaneous Test Crossmatch 01/10/17 01/10/17 01/10/17 05:36 12:14 17:55 WBC RBC Hgb Hct MCV MCH MCHC RDW Plt Count Lymph % (Auto) [place] % (Auto) Lymph # [place] # Baso # Seg Neutrophils % Seg Neuts % (Manual) Lymphocytes % (Manual) Monocytes % (Manual) Eosinophils % (Manual) Basophils % (Manual) Nucleated RBC % Seg Neutrophils # Seg Neutrophils # Man Lymphocytes # (Manual) Monocytes # (Manual) Eosinophils # (Manual) Basophils # (Manual) PT INR Fibrinogen dRVVT Confirm Interp Factor V Activity POC ABG pH POC ABG pCO2 POC ABG pO2 ABG pO2 ABG HCO3 ABG Base Excess ABG Hemoglobin Oxyhemoglobin Sodium Potassium Chloride Carbon Dioxide BUN Creatinine Glucose POC Glucose 163 H 120 H 144 H Lactic Acid Calcium Ionized Calcium Phosphorus Magnesium Direct Bilirubin AST ALT Alkaline Phosphatase Lactate Dehydrogenase Troponin T C-Reactive Protein Total Protein Albumin Prealbumin Triglycerides Cholesterol LDL Cholesterol Direct HDL Cholesterol 25-OH Vitamin D Total PTH Intact Urine pH Urine WBC (Auto) Urine Creatinine Urine Total Protein Fluid Total Protein Vancomycin Trough Rheumatoid Factor Complement C4 Miscellaneous Test Crossmatch 01/11/17 01/11/17 01/11/17 00:09 04:00 04:00 WBC 15.8 H RBC 3.04 L Hgb 8.2 L Hct 25.5 L MCV MCH 27 L MCHC RDW 17.3 H Plt Count Lymph % (Auto) [place] % (Auto) Lymph # [place] # Baso # Seg Neutrophils % Seg Neuts % (Manual) Lymphocytes % (Manual) Monocytes % (Manual) Eosinophils % (Manual) Basophils % (Manual) Nucleated RBC % Seg Neutrophils # Seg Neutrophils # Man Lymphocytes # (Manual) Monocytes # (Manual) Eosinophils # (Manual) Basophils # (Manual) PT INR Fibrinogen dRVVT Confirm Interp Factor V Activity POC ABG pH POC ABG pCO2 POC ABG pO2 ABG pO2 ABG HCO3 ABG Base Excess ABG Hemoglobin Oxyhemoglobin Sodium Potassium Chloride Carbon Dioxide BUN 78 H Creatinine 1.6 H Glucose 109 H POC Glucose 122 H Lactic Acid Calcium Ionized Calcium Phosphorus Magnesium Direct Bilirubin AST ALT Alkaline Phosphatase Lactate Dehydrogenase Troponin T C-Reactive Protein Total Protein Albumin Prealbumin Triglycerides Cholesterol LDL Cholesterol Direct HDL Cholesterol 25-OH Vitamin D Total PTH Intact Urine pH Urine WBC (Auto) Urine Creatinine Urine Total Protein Fluid Total Protein Vancomycin Trough Rheumatoid Factor Complement C4 Miscellaneous Test Crossmatch 01/11/17 01/11/17 01/11/17 12:46 18:23 23:42 WBC RBC Hgb Hct MCV MCH MCHC RDW Plt Count Lymph % (Auto) [place] % (Auto) Lymph # [place] # Baso # Seg Neutrophils % Seg Neuts % (Manual) Lymphocytes % (Manual) Monocytes % (Manual) Eosinophils % (Manual) Basophils % (Manual) Nucleated RBC % Seg Neutrophils # Seg Neutrophils # Man Lymphocytes # (Manual) Monocytes # (Manual) Eosinophils # (Manual) Basophils # (Manual) PT INR Fibrinogen dRVVT Confirm Interp Factor V Activity POC ABG pH POC ABG pCO2 POC ABG pO2 ABG pO2 ABG HCO3 ABG Base Excess ABG Hemoglobin Oxyhemoglobin Sodium Potassium Chloride Carbon Dioxide BUN Creatinine Glucose POC Glucose 148 H 125 H 124 H Lactic Acid Calcium Ionized Calcium Phosphorus Magnesium Direct Bilirubin AST ALT Alkaline Phosphatase Lactate Dehydrogenase Troponin T C-Reactive Protein Total Protein Albumin Prealbumin Triglycerides Cholesterol LDL Cholesterol Direct HDL Cholesterol 25-OH Vitamin D Total PTH Intact Urine pH Urine WBC (Auto) Urine Creatinine Urine Total Protein Fluid Total Protein Vancomycin Trough Rheumatoid Factor Complement C4 Miscellaneous Test Crossmatch 01/12/17 01/12/17 01/12/17 04:30 04:30 05:47 WBC 15.8 H RBC 3.31 L Hgb 8.9 L Hct 27.9 L MCV MCH 27 L MCHC RDW 17.4 H Plt Count Lymph % (Auto) [place] % (Auto) Lymph # [place] # Baso # Seg Neutrophils % Seg Neuts % (Manual) Lymphocytes % (Manual) Monocytes % (Manual) Eosinophils % (Manual) Basophils % (Manual) Nucleated RBC % Seg Neutrophils # Seg Neutrophils # Man Lymphocytes # (Manual) Monocytes # (Manual) Eosinophils # (Manual) Basophils # (Manual) PT INR Fibrinogen dRVVT Confirm Interp Factor V Activity POC ABG pH POC ABG pCO2 POC ABG pO2 ABG pO2 ABG HCO3 ABG Base Excess ABG Hemoglobin Oxyhemoglobin Sodium Potassium Chloride Carbon Dioxide BUN 57 H Creatinine Glucose 121 H POC Glucose 110 H Lactic Acid Calcium Ionized Calcium Phosphorus 2.10 L Magnesium Direct Bilirubin AST ALT Alkaline Phosphatase Lactate Dehydrogenase Troponin T C-Reactive Protein Total Protein Albumin Prealbumin Triglycerides Cholesterol LDL Cholesterol Direct HDL Cholesterol 25-OH Vitamin D Total PTH Intact Urine pH Urine WBC (Auto) Urine Creatinine Urine Total Protein Fluid Total Protein Vancomycin Trough Rheumatoid Factor Complement C4 Miscellaneous Test Crossmatch 01/12/17 01/12/17 01/12/17 11:35 17:45 23:14 WBC RBC Hgb Hct MCV MCH MCHC RDW Plt Count Lymph % (Auto) [place] % (Auto) Lymph # [place] # Baso # Seg Neutrophils % Seg Neuts % (Manual) Lymphocytes % (Manual) Monocytes % (Manual) Eosinophils % (Manual) Basophils % (Manual) Nucleated RBC % Seg Neutrophils # Seg Neutrophils # Man Lymphocytes # (Manual) Monocytes # (Manual) Eosinophils # (Manual) Basophils # (Manual) PT INR Fibrinogen dRVVT Confirm Interp Factor V Activity POC ABG pH POC ABG pCO2 POC ABG pO2 ABG pO2 ABG HCO3 ABG Base Excess ABG Hemoglobin Oxyhemoglobin Sodium Potassium Chloride Carbon Dioxide BUN Creatinine Glucose POC Glucose 146 H 117 H 123 H Lactic Acid Calcium Ionized Calcium Phosphorus Magnesium Direct Bilirubin AST ALT Alkaline Phosphatase Lactate Dehydrogenase Troponin T C-Reactive Protein Total Protein Albumin Prealbumin Triglycerides Cholesterol LDL Cholesterol Direct HDL Cholesterol 25-OH Vitamin D Total PTH Intact Urine pH Urine WBC (Auto) Urine Creatinine Urine Total Protein Fluid Total Protein Vancomycin Trough Rheumatoid Factor Complement C4 Miscellaneous Test Crossmatch 01/13/17 01/13/17 01/13/17 05:32 06:00 12:10 WBC RBC Hgb Hct MCV MCH MCHC RDW Plt Count Lymph % (Auto) [place] % (Auto) Lymph # [place] # Baso # Seg Neutrophils % Seg Neuts % (Manual) Lymphocytes % (Manual) Monocytes % (Manual) Eosinophils % (Manual) Basophils % (Manual) Nucleated RBC % Seg Neutrophils # Seg Neutrophils # Man Lymphocytes # (Manual) Monocytes # (Manual) Eosinophils # (Manual) Basophils # (Manual) PT INR Fibrinogen dRVVT Confirm Interp Factor V Activity POC ABG pH POC ABG pCO2 POC ABG pO2 ABG pO2 ABG HCO3 ABG Base Excess ABG Hemoglobin Oxyhemoglobin Sodium Potassium Chloride Carbon Dioxide BUN 80 H Creatinine 1.4 H Glucose 106 H POC Glucose 106 H Lactic Acid Calcium Ionized Calcium Phosphorus Magnesium Direct Bilirubin AST ALT Alkaline Phosphatase Lactate Dehydrogenase Troponin T C-Reactive Protein Total Protein Albumin Prealbumin Triglycerides Cholesterol LDL Cholesterol Direct HDL Cholesterol 25-OH Vitamin D Total PTH Intact Urine pH Urine WBC (Auto) Urine Creatinine Urine Total Protein Fluid Total Protein 3.0 L Vancomycin Trough Rheumatoid Factor Complement C4 Miscellaneous Test Crossmatch 01/13/17 01/13/17 01/13/17 12: 15:50 17:30 WBC RBC Hgb Hct MCV MCH MCHC RDW Plt Count Lymph % (Auto) [place] % (Auto) Lymph # [place] # Baso # Seg Neutrophils % Seg Neuts % (Manual) Lymphocytes % (Manual) Monocytes % (Manual) Eosinophils % (Manual) Basophils % (Manual) Nucleated RBC % Seg Neutrophils # Seg Neutrophils # Man Lymphocytes # (Manual) Monocytes # (Manual) Eosinophils # (Manual) Basophils # (Manual) PT 15.4 H INR 1.16 H Fibrinogen dRVVT Confirm Interp Factor V Activity POC ABG pH POC ABG pCO2 POC ABG pO2 ABG pO2 ABG HCO3 ABG Base Excess ABG Hemoglobin Oxyhemoglobin Sodium Potassium Chloride Carbon Dioxide BUN Creatinine Glucose POC Glucose 168 H 110 H Lactic Acid Calcium Ionized Calcium Phosphorus Magnesium Direct Bilirubin AST ALT Alkaline Phosphatase Lactate Dehydrogenase Troponin T C-Reactive Protein Total Protein Albumin Prealbumin Triglycerides Cholesterol LDL Cholesterol Direct HDL Cholesterol 25-OH Vitamin D Total PTH Intact Urine pH Urine WBC (Auto) Urine Creatinine Urine Total Protein Fluid Total Protein Vancomycin Trough Rheumatoid Factor Complement C4 Miscellaneous Test Crossmatch 01/13/17 01/14/17 01/14/17 23:42 05:24 05:30 WBC RBC Hgb Hct MCV MCH MCHC RDW Plt Count Lymph % (Auto) [place] % (Auto) Lymph # [place] # Baso # Seg Neutrophils % Seg Neuts % (Manual) Lymphocytes % (Manual) Monocytes % (Manual) Eosinophils % (Manual) Basophils % (Manual) Nucleated RBC % Seg Neutrophils # Seg Neutrophils # Man Lymphocytes # (Manual) Monocytes # (Manual) Eosinophils # (Manual) Basophils # (Manual) PT INR Fibrinogen dRVVT Confirm Interp Factor V Activity POC ABG pH POC ABG pCO2 POC ABG pO2 ABG pO2 ABG HCO3 ABG Base Excess ABG Hemoglobin Oxyhemoglobin Sodium Potassium Chloride Carbon Dioxide BUN 58 H Creatinine Glucose 114 H POC Glucose 155 H 121 H Lactic Acid Calcium Ionized Calcium Phosphorus Magnesium Direct Bilirubin AST ALT Alkaline Phosphatase Lactate Dehydrogenase Troponin T C-Reactive Protein Total Protein Albumin Prealbumin Triglycerides Cholesterol LDL Cholesterol Direct HDL Cholesterol 25-OH Vitamin D Total PTH Intact Urine pH Urine WBC (Auto) Urine Creatinine Urine Total Protein Fluid Total Protein Vancomycin Trough Rheumatoid Factor Complement C4 Miscellaneous Test Crossmatch 01/14/17 01/14/17 01/15/17 12:48 17:36 00:15 WBC RBC Hgb Hct MCV MCH MCHC RDW Plt Count Lymph % (Auto) [place] % (Auto) Lymph # [place] # Baso # Seg Neutrophils % Seg Neuts % (Manual) Lymphocytes % (Manual) Monocytes % (Manual) Eosinophils % (Manual) Basophils % (Manual) Nucleated RBC % Seg Neutrophils # Seg Neutrophils # Man Lymphocytes # (Manual) Monocytes # (Manual) Eosinophils # (Manual) Basophils # (Manual) PT INR Fibrinogen dRVVT Confirm Interp Factor V Activity POC ABG pH POC ABG pCO2 POC ABG pO2 ABG pO2 ABG HCO3 ABG Base Excess ABG Hemoglobin Oxyhemoglobin Sodium Potassium Chloride Carbon Dioxide BUN Creatinine Glucose POC Glucose 130 H 135 H 132 H Lactic Acid Calcium Ionized Calcium Phosphorus Magnesium Direct Bilirubin AST ALT Alkaline Phosphatase Lactate Dehydrogenase Troponin T C-Reactive Protein Total Protein Albumin Prealbumin Triglycerides Cholesterol LDL Cholesterol Direct HDL Cholesterol 25-OH Vitamin D Total PTH Intact Urine pH Urine WBC (Auto) Urine Creatinine Urine Total Protein Fluid Total Protein Vancomycin Trough Rheumatoid Factor Complement C4 Miscellaneous Test Crossmatch 01/15/17 01/15/17 01/15/17 05:01 11:55 12:45 WBC 16.2 H RBC 3.00 L Hgb 8.1 L Hct 25.4 L MCV MCH 27 L MCHC RDW 17.6 H Plt Count Lymph % (Auto) 11.7 L [place] % (Auto) 7.8 H Lymph # [place] # 1.3 H Baso # Seg Neutrophils % 80.1 H Seg Neuts % (Manual) Lymphocytes % (Manual) Monocytes % (Manual) Eosinophils % (Manual) Basophils % (Manual) Nucleated RBC % Seg Neutrophils # 13.0 H Seg Neutrophils # Man Lymphocytes # (Manual) Monocytes # (Manual) Eosinophils # (Manual) Basophils # (Manual) PT INR Fibrinogen dRVVT Confirm Interp Factor V Activity POC ABG pH POC ABG pCO2 POC ABG pO2 ABG pO2 ABG HCO3 ABG Base Excess ABG Hemoglobin Oxyhemoglobin Sodium Potassium Chloride Carbon Dioxide BUN Creatinine Glucose POC Glucose 126 H 125 H Lactic Acid Calcium Ionized Calcium Phosphorus Magnesium Direct Bilirubin AST ALT Alkaline Phosphatase Lactate Dehydrogenase Troponin T C-Reactive Protein Total Protein Albumin Prealbumin Triglycerides Cholesterol LDL Cholesterol Direct HDL Cholesterol 25-OH Vitamin D Total PTH Intact Urine pH Urine WBC (Auto) Urine Creatinine Urine Total Protein Fluid Total Protein Vancomycin Trough Rheumatoid Factor Complement C4 Miscellaneous Test Crossmatch 01/15/17 01/15/17 01/15/17 12:45 17:31 23:39 WBC RBC Hgb Hct MCV MCH MCHC RDW Plt Count Lymph % (Auto) [place] % (Auto) Lymph # [place] # Baso # Seg Neutrophils % Seg Neuts % (Manual) Lymphocytes % (Manual) Monocytes % (Manual) Eosinophils % (Manual) Basophils % (Manual) Nucleated RBC % Seg Neutrophils # Seg Neutrophils # Man Lymphocytes # (Manual) Monocytes # (Manual) Eosinophils # (Manual) Basophils # (Manual) PT INR Fibrinogen dRVVT Confirm Interp Factor V Activity POC ABG pH POC ABG pCO2 POC ABG pO2 ABG pO2 ABG HCO3 ABG Base Excess ABG Hemoglobin Oxyhemoglobin Sodium 136 L Potassium Chloride Carbon Dioxide BUN 87 H Creatinine 1.7 H Glucose 108 H POC Glucose 129 H 112 H Lactic Acid Calcium Ionized Calcium Phosphorus Magnesium Direct Bilirubin AST ALT Alkaline Phosphatase Lactate Dehydrogenase Troponin T C-Reactive Protein Total Protein Albumin Prealbumin Triglycerides Cholesterol LDL Cholesterol Direct HDL Cholesterol 25-OH Vitamin D Total PTH Intact Urine pH Urine WBC (Auto) Urine Creatinine Urine Total Protein Fluid Total Protein Vancomycin Trough Rheumatoid Factor Complement C4 Miscellaneous Test Crossmatch 01/16/17 01/16/17 01/16/17 05:23 11:42 12:32 WBC RBC Hgb Hct MCV MCH MCHC RDW Plt Count Lymph % (Auto) [place] % (Auto) Lymph # [place] # Baso # Seg Neutrophils % Seg Neuts % (Manual) Lymphocytes % (Manual) Monocytes % (Manual) Eosinophils % (Manual) Basophils % (Manual) Nucleated RBC % Seg Neutrophils # Seg Neutrophils # Man Lymphocytes # (Manual) Monocytes # (Manual) Eosinophils # (Manual) Basophils # (Manual) PT INR Fibrinogen dRVVT Confirm Interp Factor V Activity POC ABG pH 7.499 H POC ABG pCO2 30.9 L POC ABG pO2 51 L ABG pO2 ABG HCO3 ABG Base Excess ABG Hemoglobin Oxyhemoglobin Sodium Potassium Chloride Carbon Dioxide BUN Creatinine Glucose POC Glucose 118 H 133 H Lactic Acid Calcium Ionized Calcium Phosphorus Magnesium Direct Bilirubin AST ALT Alkaline Phosphatase Lactate Dehydrogenase Troponin T C-Reactive Protein Total Protein Albumin Prealbumin Triglycerides Cholesterol LDL Cholesterol Direct HDL Cholesterol 25-OH Vitamin D Total PTH Intact Urine pH Urine WBC (Auto) Urine Creatinine Urine Total Protein Fluid Total Protein Vancomycin Trough Rheumatoid Factor Complement C4 Miscellaneous Test Crossmatch 01/16/17 01/16/17 01/16/17 17:52 23:57 Unknown WBC RBC Hgb Hct MCV MCH MCHC RDW Plt Count Lymph % (Auto) [place] % (Auto) Lymph # [place] # Baso # Seg Neutrophils % Seg Neuts % (Manual) Lymphocytes % (Manual) Monocytes % (Manual) Eosinophils % (Manual) Basophils % (Manual) Nucleated RBC % Seg Neutrophils # Seg Neutrophils # Man Lymphocytes # (Manual) Monocytes # (Manual) Eosinophils # (Manual) Basophils # (Manual) PT INR Fibrinogen dRVVT Confirm Interp Factor V Activity POC ABG pH POC ABG pCO2 POC ABG pO2 ABG pO2 ABG HCO3 ABG Base Excess ABG Hemoglobin Oxyhemoglobin Sodium 135 L Potassium Chloride Carbon Dioxide BUN 101 H Creatinine 1.8 H Glucose 117 H POC Glucose 130 H 143 H Lactic Acid Calcium Ionized Calcium Phosphorus 5.80 H Magnesium Direct Bilirubin AST ALT Alkaline Phosphatase Lactate Dehydrogenase Troponin T C-Reactive Protein Total Protein Albumin Prealbumin Triglycerides Cholesterol LDL Cholesterol Direct HDL Cholesterol 25-OH Vitamin D Total PTH Intact Urine pH Urine WBC (Auto) Urine Creatinine Urine Total Protein Fluid Total Protein Vancomycin Trough Rheumatoid Factor Complement C4 Miscellaneous Test Crossmatch 01/17/17 01/17/17 01/17/17 05:30 05:46 11:49 WBC RBC Hgb Hct MCV MCH MCHC RDW Plt Count Lymph % (Auto) [place] % (Auto) Lymph # [place] # Baso # Seg Neutrophils % Seg Neuts % (Manual) Lymphocytes % (Manual) Monocytes % (Manual) Eosinophils % (Manual) Basophils % (Manual) Nucleated RBC % Seg Neutrophils # Seg Neutrophils # Man Lymphocytes # (Manual) Monocytes # (Manual) Eosinophils # (Manual) Basophils # (Manual) PT INR Fibrinogen dRVVT Confirm Interp Factor V Activity POC ABG pH POC ABG pCO2 POC ABG pO2 ABG pO2 ABG HCO3 ABG Base Excess ABG Hemoglobin Oxyhemoglobin Sodium 134 L Potassium Chloride 95.8 L Carbon Dioxide BUN 66 H Creatinine 1.3 H Glucose 138 H POC Glucose 147 H 124 H Lactic Acid Calcium Ionized Calcium Phosphorus Magnesium Direct Bilirubin AST ALT Alkaline Phosphatase 254 H Lactate Dehydrogenase Troponin T C-Reactive Protein Total Protein Albumin 1.3 L Prealbumin Triglycerides Cholesterol LDL Cholesterol Direct HDL Cholesterol 25-OH Vitamin D Total PTH Intact Urine pH Urine WBC (Auto) Urine Creatinine Urine Total Protein Fluid Total Protein Vancomycin Trough Rheumatoid Factor Complement C4 Miscellaneous Test Crossmatch 01/17/17 01/17/17 01/18/17 17:30 23:41 05:15 WBC RBC Hgb Hct MCV MCH MCHC RDW Plt Count Lymph % (Auto) [place] % (Auto) Lymph # [place] # Baso # Seg Neutrophils % Seg Neuts % (Manual) Lymphocytes % (Manual) Monocytes % (Manual) Eosinophils % (Manual) Basophils % (Manual) Nucleated RBC % Seg Neutrophils # Seg Neutrophils # Man Lymphocytes # (Manual) Monocytes # (Manual) Eosinophils # (Manual) Basophils # (Manual) PT INR Fibrinogen dRVVT Confirm Interp Factor V Activity POC ABG pH POC ABG pCO2 POC ABG pO2 ABG pO2 ABG HCO3 ABG Base Excess ABG Hemoglobin Oxyhemoglobin Sodium Potassium Chloride Carbon Dioxide BUN 89 H Creatinine 1.7 H Glucose 118 H POC Glucose 137 H 119 H Lactic Acid Calcium Ionized Calcium Phosphorus Magnesium Direct Bilirubin AST ALT Alkaline Phosphatase Lactate Dehydrogenase Troponin T C-Reactive Protein Total Protein Albumin Prealbumin Triglycerides Cholesterol LDL Cholesterol Direct HDL Cholesterol 25-OH Vitamin D Total PTH Intact Urine pH Urine WBC (Auto) Urine Creatinine Urine Total Protein Fluid Total Protein Vancomycin Trough Rheumatoid Factor Complement C4 Miscellaneous Test Crossmatch 01/18/17 01/18/17 01/18/17 05:19 12:16 18:11 WBC RBC Hgb Hct MCV MCH MCHC RDW Plt Count Lymph % (Auto) [place] % (Auto) Lymph # [place] # Baso # Seg Neutrophils % Seg Neuts % (Manual) Lymphocytes % (Manual) Monocytes % (Manual) Eosinophils % (Manual) Basophils % (Manual) Nucleated RBC % Seg Neutrophils # Seg Neutrophils # Man Lymphocytes # (Manual) Monocytes # (Manual) Eosinophils # (Manual) Basophils # (Manual) PT INR Fibrinogen dRVVT Confirm Interp Factor V Activity POC ABG pH POC ABG pCO2 POC ABG pO2 ABG pO2 ABG HCO3 ABG Base Excess ABG Hemoglobin Oxyhemoglobin Sodium Potassium Chloride Carbon Dioxide BUN Creatinine Glucose POC Glucose 134 H 188 H 113 H Lactic Acid Calcium Ionized Calcium Phosphorus Magnesium Direct Bilirubin AST ALT Alkaline Phosphatase Lactate Dehydrogenase Troponin T C-Reactive Protein Total Protein Albumin Prealbumin Triglycerides Cholesterol LDL Cholesterol Direct HDL Cholesterol 25-OH Vitamin D Total PTH Intact Urine pH Urine WBC (Auto) Urine Creatinine Urine Total Protein Fluid Total Protein Vancomycin Trough Rheumatoid Factor Complement C4 Miscellaneous Test Crossmatch 01/19/17 01/19/17 01/19/17 00:00 05:30 05:36 WBC RBC Hgb Hct MCV MCH MCHC RDW Plt Count Lymph % (Auto) [place] % (Auto) Lymph # [place] # Baso # Seg Neutrophils % Seg Neuts % (Manual) Lymphocytes % (Manual) Monocytes % (Manual) Eosinophils % (Manual) Basophils % (Manual) Nucleated RBC % Seg Neutrophils # Seg Neutrophils # Man Lymphocytes # (Manual) Monocytes # (Manual) Eosinophils # (Manual) Basophils # (Manual) PT INR Fibrinogen dRVVT Confirm Interp Factor V Activity POC ABG pH POC ABG pCO2 POC ABG pO2 ABG pO2 ABG HCO3 ABG Base Excess ABG Hemoglobin Oxyhemoglobin Sodium Potassium Chloride Carbon Dioxide BUN 70 H Creatinine 1.5 H Glucose 121 H POC Glucose 137 H 155 H Lactic Acid Calcium Ionized Calcium Phosphorus 2.10 L D Magnesium Direct Bilirubin AST ALT Alkaline Phosphatase Lactate Dehydrogenase Troponin T C-Reactive Protein Total Protein Albumin Prealbumin Triglycerides Cholesterol LDL Cholesterol Direct HDL Cholesterol 25-OH Vitamin D Total PTH Intact Urine pH Urine WBC (Auto) Urine Creatinine Urine Total Protein Fluid Total Protein Vancomycin Trough Rheumatoid Factor Complement C4 Miscellaneous Test Crossmatch 01/19/17 01/19/17 01/19/17 11:59 15:32 17:57 WBC RBC Hgb Hct MCV MCH MCHC RDW Plt Count Lymph % (Auto) [place] % (Auto) Lymph # [place] # Baso # Seg Neutrophils % Seg Neuts % (Manual) Lymphocytes % (Manual) Monocytes % (Manual) Eosinophils % (Manual) Basophils % (Manual) Nucleated RBC % Seg Neutrophils # Seg Neutrophils # Man Lymphocytes # (Manual) Monocytes # (Manual) Eosinophils # (Manual) Basophils # (Manual) PT INR Fibrinogen dRVVT Confirm Interp Factor V Activity POC ABG pH POC ABG pCO2 33.1 L POC ABG pO2 76 L ABG pO2 ABG HCO3 ABG Base Excess ABG Hemoglobin Oxyhemoglobin Sodium Potassium Chloride Carbon Dioxide BUN Creatinine Glucose POC Glucose 156 H 129 H Lactic Acid Calcium Ionized Calcium Phosphorus Magnesium Direct Bilirubin AST ALT Alkaline Phosphatase Lactate Dehydrogenase Troponin T C-Reactive Protein Total Protein Albumin Prealbumin Triglycerides Cholesterol LDL Cholesterol Direct HDL Cholesterol 25-OH Vitamin D Total PTH Intact Urine pH Urine WBC (Auto) Urine Creatinine Urine Total Protein Fluid Total Protein Vancomycin Trough Rheumatoid Factor Complement C4 Miscellaneous Test Crossmatch 01/19/17 01/20/17 01/20/17 23:49 04:00 05:21 WBC RBC Hgb Hct MCV MCH MCHC RDW Plt Count Lymph % (Auto) [place] % (Auto) Lymph # [place] # Baso # Seg Neutrophils % Seg Neuts % (Manual) Lymphocytes % (Manual) Monocytes % (Manual) Eosinophils % (Manual) Basophils % (Manual) Nucleated RBC % Seg Neutrophils # Seg Neutrophils # Man Lymphocytes # (Manual) Monocytes # (Manual) Eosinophils # (Manual) Basophils # (Manual) PT INR Fibrinogen dRVVT Confirm Interp Factor V Activity POC ABG pH POC ABG pCO2 POC ABG pO2 ABG pO2 ABG HCO3 ABG Base Excess ABG Hemoglobin Oxyhemoglobin Sodium Potassium Chloride Carbon Dioxide BUN 96 H Creatinine 1.9 H Glucose 106 H POC Glucose 125 H 130 H Lactic Acid Calcium Ionized Calcium Phosphorus 2.40 L Magnesium Direct Bilirubin AST ALT Alkaline Phosphatase Lactate Dehydrogenase Troponin T C-Reactive Protein Total Protein Albumin Prealbumin Triglycerides Cholesterol LDL Cholesterol Direct HDL Cholesterol 25-OH Vitamin D Total PTH Intact Urine pH Urine WBC (Auto) Urine Creatinine Urine Total Protein Fluid Total Protein Vancomycin Trough Rheumatoid Factor Complement C4 Miscellaneous Test Crossmatch 01/20/17 01/20/17 01/20/17 11:58 12:17 17:26 WBC RBC Hgb Hct MCV MCH MCHC RDW Plt Count Lymph % (Auto) [place] % (Auto) Lymph # [place] # Baso # Seg Neutrophils % Seg Neuts % (Manual) Lymphocytes % (Manual) Monocytes % (Manual) Eosinophils % (Manual) Basophils % (Manual) Nucleated RBC % Seg Neutrophils # Seg Neutrophils # Man Lymphocytes # (Manual) Monocytes # (Manual) Eosinophils # (Manual) Basophils # (Manual) PT INR Fibrinogen dRVVT Confirm Interp Factor V Activity POC ABG pH POC ABG pCO2 POC ABG pO2 70 L ABG pO2 ABG HCO3 ABG Base Excess ABG Hemoglobin Oxyhemoglobin Sodium Potassium Chloride Carbon Dioxide BUN Creatinine Glucose POC Glucose 118 H 154 H Lactic Acid Calcium Ionized Calcium Phosphorus Magnesium Direct Bilirubin AST ALT Alkaline Phosphatase Lactate Dehydrogenase Troponin T C-Reactive Protein Total Protein Albumin Prealbumin Triglycerides Cholesterol LDL Cholesterol Direct HDL Cholesterol 25-OH Vitamin D Total PTH Intact Urine pH Urine WBC (Auto) Urine Creatinine Urine Total Protein Fluid Total Protein Vancomycin Trough Rheumatoid Factor Complement C4 Miscellaneous Test Crossmatch 01/21/17 01/21/17 01/21/17 04:00 04:56 11:46 WBC RBC Hgb Hct MCV MCH MCHC RDW Plt Count Lymph % (Auto) [place] % (Auto) Lymph # [place] # Baso # Seg Neutrophils % Seg Neuts % (Manual) Lymphocytes % (Manual) Monocytes % (Manual) Eosinophils % (Manual) Basophils % (Manual) Nucleated RBC % Seg Neutrophils # Seg Neutrophils # Man Lymphocytes # (Manual) Monocytes # (Manual) Eosinophils # (Manual) Basophils # (Manual) PT INR Fibrinogen dRVVT Confirm Interp Factor V Activity POC ABG pH POC ABG pCO2 POC ABG pO2 ABG pO2 ABG HCO3 ABG Base Excess ABG Hemoglobin Oxyhemoglobin Sodium Potassium 3.5 L Chloride 97.4 L Carbon Dioxide BUN 66 H Creatinine 1.4 H Glucose POC Glucose 116 H 106 H Lactic Acid Calcium Ionized Calcium Phosphorus 2.10 L Magnesium Direct Bilirubin AST ALT Alkaline Phosphatase Lactate Dehydrogenase Troponin T C-Reactive Protein Total Protein Albumin Prealbumin Triglycerides Cholesterol LDL Cholesterol Direct HDL Cholesterol 25-OH Vitamin D Total PTH Intact Urine pH Urine WBC (Auto) Urine Creatinine Urine Total Protein Fluid Total Protein Vancomycin Trough Rheumatoid Factor Complement C4 Miscellaneous Test Crossmatch 01/21/17 01/21/17 01/22/17 17:25 23:49 05:35 WBC RBC Hgb Hct MCV MCH MCHC RDW Plt Count Lymph % (Auto) [place] % (Auto) Lymph # [place] # Baso # Seg Neutrophils % Seg Neuts % (Manual) Lymphocytes % (Manual) Monocytes % (Manual) Eosinophils % (Manual) Basophils % (Manual) Nucleated RBC % Seg Neutrophils # Seg Neutrophils # Man Lymphocytes # (Manual) Monocytes # (Manual) Eosinophils # (Manual) Basophils # (Manual) PT INR Fibrinogen dRVVT Confirm Interp Factor V Activity POC ABG pH POC ABG pCO2 POC ABG pO2 ABG pO2 ABG HCO3 ABG Base Excess ABG Hemoglobin Oxyhemoglobin Sodium Potassium Chloride Carbon Dioxide BUN Creatinine Glucose POC Glucose 106 H 133 H 107 H Lactic Acid Calcium Ionized Calcium Phosphorus Magnesium Direct Bilirubin AST ALT Alkaline Phosphatase Lactate Dehydrogenase Troponin T C-Reactive Protein Total Protein Albumin Prealbumin Triglycerides Cholesterol LDL Cholesterol Direct HDL Cholesterol 25-OH Vitamin D Total PTH Intact Urine pH Urine WBC (Auto) Urine Creatinine Urine Total Protein Fluid Total Protein Vancomycin Trough Rheumatoid Factor Complement C4 Miscellaneous Test Crossmatch 01/22/17 01/22/17 01/22/17 07:20 07:20 11:31 WBC RBC 2.75 L Hgb 7.5 L Hct 22.7 L MCV MCH 27 L MCHC RDW 17.5 H Plt Count Lymph % (Auto) [place] % (Auto) Lymph # [place] # Baso # Seg Neutrophils % Seg Neuts % (Manual) Lymphocytes % (Manual) Monocytes % (Manual) Eosinophils % (Manual) Basophils % (Manual) Nucleated RBC % Seg Neutrophils # Seg Neutrophils # Man Lymphocytes # (Manual) Monocytes # (Manual) Eosinophils # (Manual) Basophils # (Manual) PT INR Fibrinogen dRVVT Confirm Interp Factor V Activity POC ABG pH POC ABG pCO2 POC ABG pO2 ABG pO2 ABG HCO3 ABG Base Excess ABG Hemoglobin Oxyhemoglobin Sodium Potassium 3.3 L Chloride Carbon Dioxide BUN 42 H Creatinine Glucose 105 H POC Glucose 124 H Lactic Acid Calcium Ionized Calcium Phosphorus 1.70 L Magnesium Direct Bilirubin AST ALT Alkaline Phosphatase Lactate Dehydrogenase Troponin T C-Reactive Protein Total Protein Albumin Prealbumin Triglycerides Cholesterol LDL Cholesterol Direct HDL Cholesterol 25-OH Vitamin D Total PTH Intact Urine pH Urine WBC (Auto) Urine Creatinine Urine Total Protein Fluid Total Protein Vancomycin Trough Rheumatoid Factor Complement C4 Miscellaneous Test Crossmatch 01/22/17 01/22/17 01/23/17 17:16 23:35 05:35 WBC RBC Hgb Hct MCV MCH MCHC RDW Plt Count Lymph % (Auto) [place] % (Auto) Lymph # [place] # Baso # Seg Neutrophils % Seg Neuts % (Manual) Lymphocytes % (Manual) Monocytes % (Manual) Eosinophils % (Manual) Basophils % (Manual) Nucleated RBC % Seg Neutrophils # Seg Neutrophils # Man Lymphocytes # (Manual) Monocytes # (Manual) Eosinophils # (Manual) Basophils # (Manual) PT INR Fibrinogen dRVVT Confirm Interp Factor V Activity POC ABG pH POC ABG pCO2 POC ABG pO2 ABG pO2 ABG HCO3 ABG Base Excess ABG Hemoglobin Oxyhemoglobin Sodium Potassium Chloride Carbon Dioxide BUN Creatinine Glucose POC Glucose 135 H 120 H 111 H Lactic Acid Calcium Ionized Calcium Phosphorus Magnesium Direct Bilirubin AST ALT Alkaline Phosphatase Lactate Dehydrogenase Troponin T C-Reactive Protein Total Protein Albumin Prealbumin Triglycerides Cholesterol LDL Cholesterol Direct HDL Cholesterol 25-OH Vitamin D Total PTH Intact Urine pH Urine WBC (Auto) Urine Creatinine Urine Total Protein Fluid Total Protein Vancomycin Trough Rheumatoid Factor Complement C4 Miscellaneous Test Crossmatch 01/23/17 01/23/17 01/23/17 06:10 17:27 23:44 WBC RBC Hgb Hct MCV MCH MCHC RDW Plt Count Lymph % (Auto) [place] % (Auto) Lymph # [place] # Baso # Seg Neutrophils % Seg Neuts % (Manual) Lymphocytes % (Manual) Monocytes % (Manual) Eosinophils % (Manual) Basophils % (Manual) Nucleated RBC % Seg Neutrophils # Seg Neutrophils # Man Lymphocytes # (Manual) Monocytes # (Manual) Eosinophils # (Manual) Basophils # (Manual) PT INR Fibrinogen dRVVT Confirm Interp Factor V Activity POC ABG pH POC ABG pCO2 POC ABG pO2 ABG pO2 ABG HCO3 ABG Base Excess ABG Hemoglobin Oxyhemoglobin Sodium Potassium 3.3 L Chloride Carbon Dioxide BUN 66 H Creatinine 1.3 H Glucose 109 H POC Glucose 120 H 115 H Lactic Acid Calcium Ionized Calcium Phosphorus 2.20 L D Magnesium Direct Bilirubin AST ALT Alkaline Phosphatase Lactate Dehydrogenase Troponin T C-Reactive Protein Total Protein Albumin Prealbumin Triglycerides Cholesterol LDL Cholesterol Direct HDL Cholesterol 25-OH Vitamin D Total PTH Intact Urine pH Urine WBC (Auto) Urine Creatinine Urine Total Protein Fluid Total Protein Vancomycin Trough Rheumatoid Factor Complement C4 Miscellaneous Test Crossmatch 01/24/17 01/24/17 01/24/17 05:19 05:50 12:19 WBC RBC Hgb Hct MCV MCH MCHC RDW Plt Count Lymph % (Auto) [place] % (Auto) Lymph # [place] # Baso # Seg Neutrophils % Seg Neuts % (Manual) Lymphocytes % (Manual) Monocytes % (Manual) Eosinophils % (Manual) Basophils % (Manual) Nucleated RBC % Seg Neutrophils # Seg Neutrophils # Man Lymphocytes # (Manual) Monocytes # (Manual) Eosinophils # (Manual) Basophils # (Manual) PT INR Fibrinogen dRVVT Confirm Interp Factor V Activity POC ABG pH POC ABG pCO2 POC ABG pO2 ABG pO2 ABG HCO3 ABG Base Excess ABG Hemoglobin Oxyhemoglobin Sodium Potassium Chloride Carbon Dioxide BUN 47 H Creatinine Glucose 117 H POC Glucose 126 H 119 H Lactic Acid Calcium Ionized Calcium Phosphorus 2.30 L Magnesium 1.60 L Direct Bilirubin AST ALT Alkaline Phosphatase Lactate Dehydrogenase Troponin T C-Reactive Protein Total Protein Albumin Prealbumin Triglycerides Cholesterol LDL Cholesterol Direct HDL Cholesterol 25-OH Vitamin D Total PTH Intact Urine pH Urine WBC (Auto) Urine Creatinine Urine Total Protein Fluid Total Protein Vancomycin Trough Rheumatoid Factor Complement C4 Miscellaneous Test Crossmatch 01/24/17 01/25/17 01/25/17 17:08 00:37 04:00 WBC RBC Hgb Hct MCV MCH MCHC RDW Plt Count Lymph % (Auto) [place] % (Auto) Lymph # [place] # Baso # Seg Neutrophils % Seg Neuts % (Manual) Lymphocytes % (Manual) Monocytes % (Manual) Eosinophils % (Manual) Basophils % (Manual) Nucleated RBC % Seg Neutrophils # Seg Neutrophils # Man Lymphocytes # (Manual) Monocytes # (Manual) Eosinophils # (Manual) Basophils # (Manual) PT INR Fibrinogen dRVVT Confirm Interp Factor V Activity POC ABG pH POC ABG pCO2 POC ABG pO2 ABG pO2 ABG HCO3 ABG Base Excess ABG Hemoglobin Oxyhemoglobin Sodium Potassium Chloride Carbon Dioxide BUN 72 H Creatinine 1.3 H Glucose POC Glucose 127 H 110 H Lactic Acid Calcium Ionized Calcium Phosphorus Magnesium Direct Bilirubin AST ALT Alkaline Phosphatase Lactate Dehydrogenase Troponin T C-Reactive Protein Total Protein Albumin Prealbumin Triglycerides Cholesterol LDL Cholesterol Direct HDL Cholesterol 25-OH Vitamin D Total PTH Intact Urine pH Urine WBC (Auto) Urine Creatinine Urine Total Protein Fluid Total Protein Vancomycin Trough Rheumatoid Factor Complement C4 Miscellaneous Test Crossmatch 01/25/17 01/25/17 01/25/17 04:00 11:15 13:05 WBC RBC 2.49 L Hgb 6.7 L Hct 20.9 L MCV MCH 27 L MCHC RDW 18.8 H Plt Count Lymph % (Auto) [place] % (Auto) 10.1 H Lymph # [place] # 1.0 H Baso # Seg Neutrophils % Seg Neuts % (Manual) Lymphocytes % (Manual) Monocytes % (Manual) Eosinophils % (Manual) Basophils % (Manual) Nucleated RBC % Seg Neutrophils # Seg Neutrophils # Man Lymphocytes # (Manual) Monocytes # (Manual) Eosinophils # (Manual) Basophils # (Manual) PT INR Fibrinogen dRVVT Confirm Interp Factor V Activity POC ABG pH POC ABG pCO2 POC ABG pO2 ABG pO2 ABG HCO3 ABG Base Excess ABG Hemoglobin Oxyhemoglobin Sodium Potassium Chloride Carbon Dioxide BUN Creatinine Glucose POC Glucose 128 H Lactic Acid Calcium Ionized Calcium Phosphorus Magnesium Direct Bilirubin AST ALT Alkaline Phosphatase Lactate Dehydrogenase Troponin T C-Reactive Protein Total Protein Albumin Prealbumin Triglycerides Cholesterol LDL Cholesterol Direct HDL Cholesterol 25-OH Vitamin D Total PTH Intact Urine pH Urine WBC (Auto) Urine Creatinine Urine Total Protein Fluid Total Protein Vancomycin Trough Rheumatoid Factor Complement C4 Miscellaneous Test Crossmatch See Detail 01/25/17 01/25/17 01/26/17 18:02 23:07 01:20 WBC RBC Hgb Hct MCV MCH MCHC RDW Plt Count Lymph % (Auto) [place] % (Auto) Lymph # [place] # Baso # Seg Neutrophils % Seg Neuts % (Manual) Lymphocytes % (Manual) Monocytes % (Manual) Eosinophils % (Manual) Basophils % (Manual) Nucleated RBC % Seg Neutrophils # Seg Neutrophils # Man Lymphocytes # (Manual) Monocytes # (Manual) Eosinophils # (Manual) Basophils # (Manual) PT INR Fibrinogen dRVVT Confirm Interp Factor V Activity POC ABG pH POC ABG pCO2 POC ABG pO2 ABG pO2 ABG HCO3 ABG Base Excess ABG Hemoglobin Oxyhemoglobin Sodium Potassium Chloride Carbon Dioxide BUN Creatinine Glucose POC Glucose 120 H 123 H 112 H Lactic Acid Calcium Ionized Calcium Phosphorus Magnesium Direct Bilirubin AST ALT Alkaline Phosphatase Lactate Dehydrogenase Troponin T C-Reactive Protein Total Protein Albumin Prealbumin Triglycerides Cholesterol LDL Cholesterol Direct HDL Cholesterol 25-OH Vitamin D Total PTH Intact Urine pH Urine WBC (Auto) Urine Creatinine Urine Total Protein Fluid Total Protein Vancomycin Trough Rheumatoid Factor Complement C4 Miscellaneous Test Crossmatch 01/26/17 01/26/17 01/26/17 04:20 04:20 11:23 WBC 13.1 H RBC 3.28 L Hgb 9.0 L Hct 26.9 L D MCV MCH 27 L MCHC RDW 17.2 H Plt Count Lymph % (Auto) [place] % (Auto) 9.0 H Lymph # [place] # 1.2 H Baso # Seg Neutrophils % 73.1 H Seg Neuts % (Manual) Lymphocytes % (Manual) Monocytes % (Manual) Eosinophils % (Manual) Basophils % (Manual) Nucleated RBC % Seg Neutrophils # 9.6 H Seg Neutrophils # Man Lymphocytes # (Manual) Monocytes # (Manual) Eosinophils # (Manual) Basophils # (Manual) PT INR Fibrinogen dRVVT Confirm Interp Factor V Activity POC ABG pH POC ABG pCO2 POC ABG pO2 ABG pO2 ABG HCO3 ABG Base Excess ABG Hemoglobin Oxyhemoglobin Sodium Potassium Chloride Carbon Dioxide BUN 51 H Creatinine Glucose 117 H POC Glucose 125 H Lactic Acid Calcium Ionized Calcium Phosphorus Magnesium Direct Bilirubin AST ALT Alkaline Phosphatase Lactate Dehydrogenase Troponin T C-Reactive Protein Total Protein Albumin Prealbumin Triglycerides Cholesterol LDL Cholesterol Direct HDL Cholesterol 25-OH Vitamin D Total PTH Intact Urine pH Urine WBC (Auto) Urine Creatinine Urine Total Protein Fluid Total Protein Vancomycin Trough Rheumatoid Factor Complement C4 Miscellaneous Test Crossmatch 01/26/17 01/27/17 01/27/17 17:11 00:30 04:00 WBC RBC Hgb Hct MCV MCH MCHC RDW Plt Count Lymph % (Auto) [place] % (Auto) Lymph # [place] # Baso # Seg Neutrophils % Seg Neuts % (Manual) Lymphocytes % (Manual) Monocytes % (Manual) Eosinophils % (Manual) Basophils % (Manual) Nucleated RBC % Seg Neutrophils # Seg Neutrophils # Man Lymphocytes # (Manual) Monocytes # (Manual) Eosinophils # (Manual) Basophils # (Manual) PT INR Fibrinogen dRVVT Confirm Interp Factor V Activity POC ABG pH POC ABG pCO2 POC ABG pO2 ABG pO2 ABG HCO3 ABG Base Excess ABG Hemoglobin Oxyhemoglobin Sodium Potassium Chloride 97.7 L Carbon Dioxide 21 L BUN 79 H Creatinine 1.7 H D Glucose 112 H POC Glucose 133 H 135 H Lactic Acid Calcium Ionized Calcium Phosphorus 5.00 H D Magnesium Direct Bilirubin AST ALT Alkaline Phosphatase Lactate Dehydrogenase Troponin T C-Reactive Protein Total Protein Albumin Prealbumin Triglycerides Cholesterol LDL Cholesterol Direct HDL Cholesterol 25-OH Vitamin D Total PTH Intact Urine pH Urine WBC (Auto) Urine Creatinine Urine Total Protein Fluid Total Protein Vancomycin Trough Rheumatoid Factor Complement C4 Miscellaneous Test Crossmatch 01/27/17 01/27/17 01/27/17 05:12 12:18 17:25 WBC RBC Hgb Hct MCV MCH MCHC RDW Plt Count Lymph % (Auto) [place] % (Auto) Lymph # [place] # Baso # Seg Neutrophils % Seg Neuts % (Manual) Lymphocytes % (Manual) Monocytes % (Manual) Eosinophils % (Manual) Basophils % (Manual) Nucleated RBC % Seg Neutrophils # Seg Neutrophils # Man Lymphocytes # (Manual) Monocytes # (Manual) Eosinophils # (Manual) Basophils # (Manual) PT INR Fibrinogen dRVVT Confirm Interp Factor V Activity POC ABG pH POC ABG pCO2 POC ABG pO2 ABG pO2 ABG HCO3 ABG Base Excess ABG Hemoglobin Oxyhemoglobin Sodium Potassium Chloride Carbon Dioxide BUN Creatinine Glucose POC Glucose 116 H 153 H 152 H Lactic Acid Calcium Ionized Calcium Phosphorus Magnesium Direct Bilirubin AST ALT Alkaline Phosphatase Lactate Dehydrogenase Troponin T C-Reactive Protein Total Protein Albumin Prealbumin Triglycerides Cholesterol LDL Cholesterol Direct HDL Cholesterol 25-OH Vitamin D Total PTH Intact Urine pH Urine WBC (Auto) Urine Creatinine Urine Total Protein Fluid Total Protein Vancomycin Trough Rheumatoid Factor Complement C4 Miscellaneous Test Crossmatch 01/27/17 01/28/17 01/28/17 23:42 04:00 04:00 WBC 14.4 H RBC 2.82 L Hgb 7.4 L Hct 23.5 L MCV MCH 26 L MCHC RDW 17.6 H Plt Count Lymph % (Auto) 10.2 L [place] % (Auto) 11.0 H Lymph # [place] # 1.6 H Baso # Seg Neutrophils % 78.0 H Seg Neuts % (Manual) Lymphocytes % (Manual) Monocytes % (Manual) Eosinophils % (Manual) Basophils % (Manual) Nucleated RBC % Seg Neutrophils # 11.3 H Seg Neutrophils # Man Lymphocytes # (Manual) Monocytes # (Manual) Eosinophils # (Manual) Basophils # (Manual) PT INR Fibrinogen dRVVT Confirm Interp Factor V Activity POC ABG pH POC ABG pCO2 POC ABG pO2 ABG pO2 ABG HCO3 ABG Base Excess ABG Hemoglobin Oxyhemoglobin Sodium Potassium Chloride Carbon Dioxide BUN 55 H Creatinine 1.3 H Glucose 114 H POC Glucose 121 H Lactic Acid Calcium Ionized Calcium Phosphorus Magnesium Direct Bilirubin AST ALT Alkaline Phosphatase Lactate Dehydrogenase Troponin T C-Reactive Protein Total Protein Albumin 1.4 L Prealbumin Triglycerides Cholesterol LDL Cholesterol Direct HDL Cholesterol 25-OH Vitamin D Total PTH Intact Urine pH Urine WBC (Auto) Urine Creatinine Urine Total Protein Fluid Total Protein Vancomycin Trough Rheumatoid Factor Complement C4 Miscellaneous Test Crossmatch 01/28/17 01/28/17 01/29/17 04:59 12:30 00:02 WBC RBC Hgb Hct MCV MCH MCHC RDW Plt Count Lymph % (Auto) [place] % (Auto) Lymph # [place] # Baso # Seg Neutrophils % Seg Neuts % (Manual) Lymphocytes % (Manual) Monocytes % (Manual) Eosinophils % (Manual) Basophils % (Manual) Nucleated RBC % Seg Neutrophils # Seg Neutrophils # Man Lymphocytes # (Manual) Monocytes # (Manual) Eosinophils # (Manual) Basophils # (Manual) PT INR Fibrinogen dRVVT Confirm Interp Factor V Activity POC ABG pH POC ABG pCO2 POC ABG pO2 ABG pO2 ABG HCO3 ABG Base Excess ABG Hemoglobin Oxyhemoglobin Sodium Potassium Chloride Carbon Dioxide BUN Creatinine Glucose POC Glucose 126 H 119 H 138 H Lactic Acid Calcium Ionized Calcium Phosphorus Magnesium Direct Bilirubin AST ALT Alkaline Phosphatase Lactate Dehydrogenase Troponin T C-Reactive Protein Total Protein Albumin Prealbumin Triglycerides Cholesterol LDL Cholesterol Direct HDL Cholesterol 25-OH Vitamin D Total PTH Intact Urine pH Urine WBC (Auto) Urine Creatinine Urine Total Protein Fluid Total Protein Vancomycin Trough Rheumatoid Factor Complement C4 Miscellaneous Test Crossmatch 01/29/17 01/29/17 01/29/17 04:58 06:15 11:35 WBC RBC Hgb Hct MCV MCH MCHC RDW Plt Count Lymph % (Auto) [place] % (Auto) Lymph # [place] # Baso # Seg Neutrophils % Seg Neuts % (Manual) Lymphocytes % (Manual) Monocytes % (Manual) Eosinophils % (Manual) Basophils % (Manual) Nucleated RBC % Seg Neutrophils # Seg Neutrophils # Man Lymphocytes # (Manual) Monocytes # (Manual) Eosinophils # (Manual) Basophils # (Manual) PT INR Fibrinogen dRVVT Confirm Interp Factor V Activity POC ABG pH POC ABG pCO2 POC ABG pO2 ABG pO2 ABG HCO3 ABG Base Excess ABG Hemoglobin Oxyhemoglobin Sodium Potassium Chloride Carbon Dioxide BUN 85 H Creatinine 1.7 H Glucose 105 H POC Glucose 114 H 110 H Lactic Acid Calcium Ionized Calcium Phosphorus Magnesium 2.40 H Direct Bilirubin AST ALT Alkaline Phosphatase Lactate Dehydrogenase Troponin T C-Reactive Protein Total Protein Albumin Prealbumin Triglycerides Cholesterol LDL Cholesterol Direct HDL Cholesterol 25-OH Vitamin D Total PTH Intact Urine pH Urine WBC (Auto) Urine Creatinine Urine Total Protein Fluid Total Protein Vancomycin Trough Rheumatoid Factor Complement C4 Miscellaneous Test Crossmatch 01/29/17 01/29/17 01/30/17 18:24 23:41 05:12 WBC RBC Hgb Hct MCV MCH MCHC RDW Plt Count Lymph % (Auto) [place] % (Auto) Lymph # [place] # Baso # Seg Neutrophils % Seg Neuts % (Manual) Lymphocytes % (Manual) Monocytes % (Manual) Eosinophils % (Manual) Basophils % (Manual) Nucleated RBC % Seg Neutrophils # Seg Neutrophils # Man Lymphocytes # (Manual) Monocytes # (Manual) Eosinophils # (Manual) Basophils # (Manual) PT INR Fibrinogen dRVVT Confirm Interp Factor V Activity POC ABG pH POC ABG pCO2 POC ABG pO2 ABG pO2 ABG HCO3 ABG Base Excess ABG Hemoglobin Oxyhemoglobin Sodium Potassium Chloride Carbon Dioxide BUN Creatinine Glucose POC Glucose 109 H 134 H 109 H Lactic Acid Calcium Ionized Calcium Phosphorus Magnesium Direct Bilirubin AST ALT Alkaline Phosphatase Lactate Dehydrogenase Troponin T C-Reactive Protein Total Protein Albumin Prealbumin Triglycerides Cholesterol LDL Cholesterol Direct HDL Cholesterol 25-OH Vitamin D Total PTH Intact Urine pH Urine WBC (Auto) Urine Creatinine Urine Total Protein Fluid Total Protein Vancomycin Trough Rheumatoid Factor Complement C4 Miscellaneous Test Crossmatch 01/30/17 01/30/17 01/30/17 11:26 17:43 23:39 WBC RBC Hgb Hct MCV MCH MCHC RDW Plt Count Lymph % (Auto) [place] % (Auto) Lymph # [place] # Baso # Seg Neutrophils % Seg Neuts % (Manual) Lymphocytes % (Manual) Monocytes % (Manual) Eosinophils % (Manual) Basophils % (Manual) Nucleated RBC % Seg Neutrophils # Seg Neutrophils # Man Lymphocytes # (Manual) Monocytes # (Manual) Eosinophils # (Manual) Basophils # (Manual) PT INR Fibrinogen dRVVT Confirm Interp Factor V Activity POC ABG pH POC ABG pCO2 POC ABG pO2 ABG pO2 ABG HCO3 ABG Base Excess ABG Hemoglobin Oxyhemoglobin Sodium Potassium Chloride Carbon Dioxide BUN Creatinine Glucose POC Glucose 135 H 143 H 122 H Lactic Acid Calcium Ionized Calcium Phosphorus Magnesium Direct Bilirubin AST ALT Alkaline Phosphatase Lactate Dehydrogenase Troponin T C-Reactive Protein Total Protein Albumin Prealbumin Triglycerides Cholesterol LDL Cholesterol Direct HDL Cholesterol 25-OH Vitamin D Total PTH Intact Urine pH Urine WBC (Auto) Urine Creatinine Urine Total Protein Fluid Total Protein Vancomycin Trough Rheumatoid Factor Complement C4 Miscellaneous Test Crossmatch 01/31/17 01/31/17 01/31/17 04:00 05:40 11:12 WBC RBC Hgb Hct MCV MCH MCHC RDW Plt Count Lymph % (Auto) [place] % (Auto) Lymph # [place] # Baso # Seg Neutrophils % Seg Neuts % (Manual) Lymphocytes % (Manual) Monocytes % (Manual) Eosinophils % (Manual) Basophils % (Manual) Nucleated RBC % Seg Neutrophils # Seg Neutrophils # Man Lymphocytes # (Manual) Monocytes # (Manual) Eosinophils # (Manual) Basophils # (Manual) PT INR Fibrinogen dRVVT Confirm Interp Factor V Activity POC ABG pH POC ABG pCO2 POC ABG pO2 ABG pO2 ABG HCO3 ABG Base Excess ABG Hemoglobin Oxyhemoglobin Sodium Potassium Chloride Carbon Dioxide BUN 78 H Creatinine 1.5 H Glucose 108 H POC Glucose 123 H Lactic Acid Calcium Ionized Calcium Phosphorus Magnesium Direct Bilirubin AST ALT Alkaline Phosphatase Lactate Dehydrogenase Troponin T C-Reactive Protein 8.10 H Total Protein Albumin Prealbumin Triglycerides Cholesterol LDL Cholesterol Direct HDL Cholesterol 25-OH Vitamin D Total PTH Intact Urine pH Urine WBC (Auto) Urine Creatinine Urine Total Protein Fluid Total Protein Vancomycin Trough Rheumatoid Factor Complement C4 Miscellaneous Test Crossmatch 01/31/17 01/31/17 01/31/17 11:16 17:45 17:50 WBC RBC Hgb Hct MCV MCH MCHC RDW Plt Count Lymph % (Auto) [place] % (Auto) Lymph # [place] # Baso # Seg Neutrophils % Seg Neuts % (Manual) Lymphocytes % (Manual) Monocytes % (Manual) Eosinophils % (Manual) Basophils % (Manual) Nucleated RBC % Seg Neutrophils # Seg Neutrophils # Man Lymphocytes # (Manual) Monocytes # (Manual) Eosinophils # (Manual) Basophils # (Manual) PT INR Fibrinogen dRVVT Confirm Interp Factor V Activity POC ABG pH POC ABG pCO2 POC ABG pO2 ABG pO2 ABG HCO3 ABG Base Excess ABG Hemoglobin Oxyhemoglobin Sodium Potassium Chloride Carbon Dioxide BUN Creatinine Glucose POC Glucose 119 H 111 H Lactic Acid Calcium Ionized Calcium Phosphorus Magnesium Direct Bilirubin AST ALT Alkaline Phosphatase Lactate Dehydrogenase Troponin T C-Reactive Protein Total Protein Albumin Prealbumin Triglycerides Cholesterol LDL Cholesterol Direct HDL Cholesterol 25-OH Vitamin D Total PTH Intact 6.76 L Urine pH Urine WBC (Auto) Urine Creatinine Urine Total Protein Fluid Total Protein Vancomycin Trough Rheumatoid Factor Complement C4 Miscellaneous Test Crossmatch 01/31/17 02/01/17 02/01/17 23:19 05:42 09:24 WBC RBC Hgb Hct MCV MCH MCHC RDW Plt Count Lymph % (Auto) [place] % (Auto) Lymph # [place] # Baso # Seg Neutrophils % Seg Neuts % (Manual) Lymphocytes % (Manual) Monocytes % (Manual) Eosinophils % (Manual) Basophils % (Manual) Nucleated RBC % Seg Neutrophils # Seg Neutrophils # Man Lymphocytes # (Manual) Monocytes # (Manual) Eosinophils # (Manual) Basophils # (Manual) PT INR Fibrinogen dRVVT Confirm Interp Factor V Activity POC ABG pH POC ABG pCO2 POC ABG pO2 ABG pO2 ABG HCO3 ABG Base Excess ABG Hemoglobin Oxyhemoglobin Sodium Potassium Chloride Carbon Dioxide BUN Creatinine Glucose POC Glucose 118 H 122 H Lactic Acid Calcium Ionized Calcium Phosphorus Magnesium 2.60 H Direct Bilirubin AST ALT Alkaline Phosphatase Lactate Dehydrogenase Troponin T C-Reactive Protein Total Protein Albumin Prealbumin Triglycerides Cholesterol LDL Cholesterol Direct HDL Cholesterol 25-OH Vitamin D Total PTH Intact Urine pH Urine WBC (Auto) Urine Creatinine Urine Total Protein Fluid Total Protein Vancomycin Trough Rheumatoid Factor Complement C4 Miscellaneous Test Crossmatch 02/01/17 02/01/17 02/02/17 09:24 12:15 07:40 WBC RBC Hgb Hct MCV MCH MCHC RDW Plt Count Lymph % (Auto) [place] % (Auto) Lymph # [place] # Baso # Seg Neutrophils % Seg Neuts % (Manual) Lymphocytes % (Manual) Monocytes % (Manual) Eosinophils % (Manual) Basophils % (Manual) Nucleated RBC % Seg Neutrophils # Seg Neutrophils # Man Lymphocytes # (Manual) Monocytes # (Manual) Eosinophils # (Manual) Basophils # (Manual) PT INR Fibrinogen dRVVT Confirm Interp Factor V Activity POC ABG pH POC ABG pCO2 POC ABG pO2 ABG pO2 ABG HCO3 ABG Base Excess ABG Hemoglobin Oxyhemoglobin Sodium Potassium Chloride Carbon Dioxide BUN 102 H 72 H Creatinine 1.9 H 1.5 H Glucose 120 H POC Glucose 156 H Lactic Acid Calcium Ionized Calcium Phosphorus Magnesium Direct Bilirubin AST ALT Alkaline Phosphatase Lactate Dehydrogenase Troponin T C-Reactive Protein Total Protein Albumin Prealbumin Triglycerides Cholesterol LDL Cholesterol Direct HDL Cholesterol 25-OH Vitamin D Total PTH Intact Urine pH Urine WBC (Auto) Urine Creatinine Urine Total Protein Fluid Total Protein Vancomycin Trough Rheumatoid Factor Complement C4 Miscellaneous Test Crossmatch 02/02/17 02/02/17 02/03/17 10:16 12:11 00:08 WBC 12.0 H RBC 3.08 L Hgb 8.3 L Hct 25.6 L MCV MCH 27 L MCHC RDW 18.2 H Plt Count Lymph % (Auto) [place] % (Auto) Lymph # [place] # Baso # Seg Neutrophils % 78.4 H Seg Neuts % (Manual) Lymphocytes % (Manual) Monocytes % (Manual) Eosinophils % (Manual) Basophils % (Manual) Nucleated RBC % Seg Neutrophils # 9.4 H Seg Neutrophils # Man Lymphocytes # (Manual) Monocytes # (Manual) Eosinophils # (Manual) Basophils # (Manual) PT INR Fibrinogen dRVVT Confirm Interp Factor V Activity POC ABG pH POC ABG pCO2 POC ABG pO2 ABG pO2 ABG HCO3 ABG Base Excess ABG Hemoglobin Oxyhemoglobin Sodium Potassium Chloride Carbon Dioxide BUN Creatinine Glucose POC Glucose 110 H 120 H Lactic Acid Calcium Ionized Calcium Phosphorus Magnesium Direct Bilirubin AST ALT Alkaline Phosphatase Lactate Dehydrogenase Troponin T C-Reactive Protein Total Protein Albumin Prealbumin Triglycerides Cholesterol LDL Cholesterol Direct HDL Cholesterol 25-OH Vitamin D Total PTH Intact Urine pH Urine WBC (Auto) Urine Creatinine Urine Total Protein Fluid Total Protein Vancomycin Trough Rheumatoid Factor Complement C4 Miscellaneous Test Crossmatch 02/03/17 02/03/17 02/03/17 05:41 07:38 11:31 WBC RBC Hgb Hct MCV MCH MCHC RDW Plt Count Lymph % (Auto) [place] % (Auto) Lymph # [place] # Baso # Seg Neutrophils % Seg Neuts % (Manual) Lymphocytes % (Manual) Monocytes % (Manual) Eosinophils % (Manual) Basophils % (Manual) Nucleated RBC % Seg Neutrophils # Seg Neutrophils # Man Lymphocytes # (Manual) Monocytes # (Manual) Eosinophils # (Manual) Basophils # (Manual) PT INR Fibrinogen dRVVT Confirm Interp Factor V Activity POC ABG pH POC ABG pCO2 POC ABG pO2 ABG pO2 ABG HCO3 ABG Base Excess ABG Hemoglobin Oxyhemoglobin Sodium 134 L Potassium Chloride Carbon Dioxide 21 L BUN 91 H Creatinine 1.9 H Glucose 110 H POC Glucose 119 H 119 H Lactic Acid Calcium 10.3 H Ionized Calcium Phosphorus Magnesium Direct Bilirubin AST ALT Alkaline Phosphatase Lactate Dehydrogenase Troponin T C-Reactive Protein Total Protein Albumin Prealbumin Triglycerides Cholesterol LDL Cholesterol Direct HDL Cholesterol 25-OH Vitamin D Total PTH Intact Urine pH Urine WBC (Auto) Urine Creatinine Urine Total Protein Fluid Total Protein Vancomycin Trough Rheumatoid Factor Complement C4 Miscellaneous Test Crossmatch 02/03/17 02/04/17 02/04/17 17:13 04:00 05:18 WBC RBC Hgb Hct MCV MCH MCHC RDW Plt Count Lymph % (Auto) [place] % (Auto) Lymph # [place] # Baso # Seg Neutrophils % Seg Neuts % (Manual) Lymphocytes % (Manual) Monocytes % (Manual) Eosinophils % (Manual) Basophils % (Manual) Nucleated RBC % Seg Neutrophils # Seg Neutrophils # Man Lymphocytes # (Manual) Monocytes # (Manual) Eosinophils # (Manual) Basophils # (Manual) PT INR Fibrinogen dRVVT Confirm Interp Factor V Activity POC ABG pH POC ABG pCO2 POC ABG pO2 ABG pO2 ABG HCO3 ABG Base Excess ABG Hemoglobin Oxyhemoglobin Sodium 136 L Potassium Chloride Carbon Dioxide BUN 58 H Creatinine 1.3 H Glucose 103 H POC Glucose 133 H 132 H Lactic Acid Calcium Ionized Calcium Phosphorus 2.00 L D Magnesium 1.60 L Direct Bilirubin AST ALT Alkaline Phosphatase Lactate Dehydrogenase Troponin T C-Reactive Protein Total Protein Albumin Prealbumin Triglycerides Cholesterol LDL Cholesterol Direct HDL Cholesterol 25-OH Vitamin D Total PTH Intact Urine pH Urine WBC (Auto) Urine Creatinine Urine Total Protein Fluid Total Protein Vancomycin Trough Rheumatoid Factor Complement C4 Miscellaneous Test Crossmatch 02/05/17 02/05/17 02/05/17 00:01 04:00 06:42 WBC RBC Hgb Hct MCV MCH MCHC RDW Plt Count Lymph % (Auto) [place] % (Auto) Lymph # [place] # Baso # Seg Neutrophils % Seg Neuts % (Manual) Lymphocytes % (Manual) Monocytes % (Manual) Eosinophils % (Manual) Basophils % (Manual) Nucleated RBC % Seg Neutrophils # Seg Neutrophils # Man Lymphocytes # (Manual) Monocytes # (Manual) Eosinophils # (Manual) Basophils # (Manual) PT INR Fibrinogen dRVVT Confirm Interp Factor V Activity POC ABG pH POC ABG pCO2 POC ABG pO2 ABG pO2 ABG HCO3 ABG Base Excess ABG Hemoglobin Oxyhemoglobin Sodium Potassium Chloride Carbon Dioxide BUN 83 H Creatinine 1.8 H Glucose POC Glucose 119 H 110 H Lactic Acid Calcium 10.7 H Ionized Calcium Phosphorus Magnesium Direct Bilirubin AST ALT Alkaline Phosphatase Lactate Dehydrogenase Troponin T C-Reactive Protein Total Protein Albumin Prealbumin Triglycerides Cholesterol LDL Cholesterol Direct HDL Cholesterol 25-OH Vitamin D Total PTH Intact Urine pH Urine WBC (Auto) Urine Creatinine Urine Total Protein Fluid Total Protein Vancomycin Trough Rheumatoid Factor Complement C4 Miscellaneous Test Crossmatch 02/05/17 02/05/17 02/05/17 09:59 11:47 23:44 WBC RBC 2.69 L Hgb 7.2 L Hct 22.5 L MCV MCH 27 L MCHC RDW 18.6 H Plt Count Lymph % (Auto) [place] % (Auto) 9.2 H Lymph # [place] # 0.9 H Baso # Seg Neutrophils % Seg Neuts % (Manual) Lymphocytes % (Manual) Monocytes % (Manual) Eosinophils % (Manual) Basophils % (Manual) Nucleated RBC % Seg Neutrophils # Seg Neutrophils # Man Lymphocytes # (Manual) Monocytes # (Manual) Eosinophils # (Manual) Basophils # (Manual) PT INR Fibrinogen dRVVT Confirm Interp Factor V Activity POC ABG pH POC ABG pCO2 POC ABG pO2 ABG pO2 ABG HCO3 ABG Base Excess ABG Hemoglobin Oxyhemoglobin Sodium Potassium Chloride Carbon Dioxide BUN Creatinine Glucose POC Glucose 130 H 123 H Lactic Acid Calcium Ionized Calcium Phosphorus Magnesium Direct Bilirubin AST ALT Alkaline Phosphatase Lactate Dehydrogenase Troponin T C-Reactive Protein Total Protein Albumin Prealbumin Triglycerides Cholesterol LDL Cholesterol Direct HDL Cholesterol 25-OH Vitamin D Total PTH Intact Urine pH Urine WBC (Auto) Urine Creatinine Urine Total Protein Fluid Total Protein Vancomycin Trough Rheumatoid Factor Complement C4 Miscellaneous Test Crossmatch 02/06/17 02/06/17 02/06/17 04:45 05:58 12:01 WBC RBC Hgb Hct MCV MCH MCHC RDW Plt Count Lymph % (Auto) [place] % (Auto) Lymph # [place] # Baso # Seg Neutrophils % Seg Neuts % (Manual) Lymphocytes % (Manual) Monocytes % (Manual) Eosinophils % (Manual) Basophils % (Manual) Nucleated RBC % Seg Neutrophils # Seg Neutrophils # Man Lymphocytes # (Manual) Monocytes # (Manual) Eosinophils # (Manual) Basophils # (Manual) PT INR Fibrinogen dRVVT Confirm Interp Factor V Activity POC ABG pH POC ABG pCO2 POC ABG pO2 ABG pO2 ABG HCO3 ABG Base Excess ABG Hemoglobin Oxyhemoglobin Sodium Potassium Chloride Carbon Dioxide BUN 101 H Creatinine 2.0 H Glucose 102 H POC Glucose 115 H 132 H Lactic Acid Calcium 10.6 H Ionized Calcium Phosphorus Magnesium Direct Bilirubin AST ALT Alkaline Phosphatase 199 H Lactate Dehydrogenase Troponin T C-Reactive Protein Total Protein Albumin 1.4 L Prealbumin Triglycerides Cholesterol LDL Cholesterol Direct HDL Cholesterol 25-OH Vitamin D Total PTH Intact Urine pH Urine WBC (Auto) Urine Creatinine Urine Total Protein Fluid Total Protein Vancomycin Trough Rheumatoid Factor Complement C4 Miscellaneous Test Crossmatch 02/06/17 02/06/17 02/07/17 17:41 23:32 05:04 WBC RBC Hgb Hct MCV MCH MCHC RDW Plt Count Lymph % (Auto) [place] % (Auto) Lymph # [place] # Baso # Seg Neutrophils % Seg Neuts % (Manual) Lymphocytes % (Manual) Monocytes % (Manual) Eosinophils % (Manual) Basophils % (Manual) Nucleated RBC % Seg Neutrophils # Seg Neutrophils # Man Lymphocytes # (Manual) Monocytes # (Manual) Eosinophils # (Manual) Basophils # (Manual) PT INR Fibrinogen dRVVT Confirm Interp Factor V Activity POC ABG pH POC ABG pCO2 POC ABG pO2 ABG pO2 ABG HCO3 ABG Base Excess ABG Hemoglobin Oxyhemoglobin Sodium Potassium Chloride Carbon Dioxide BUN Creatinine Glucose POC Glucose 134 H 128 H 119 H Lactic Acid Calcium Ionized Calcium Phosphorus Magnesium Direct Bilirubin AST ALT Alkaline Phosphatase Lactate Dehydrogenase Troponin T C-Reactive Protein Total Protein Albumin Prealbumin Triglycerides Cholesterol LDL Cholesterol Direct HDL Cholesterol 25-OH Vitamin D Total PTH Intact Urine pH Urine WBC (Auto) Urine Creatinine Urine Total Protein Fluid Total Protein Vancomycin Trough Rheumatoid Factor Complement C4 Miscellaneous Test Crossmatch 02/07/17 02/07/17 02/07/17 06:30 11:20 17:13 WBC RBC Hgb Hct MCV MCH MCHC RDW Plt Count Lymph % (Auto) [place] % (Auto) Lymph # [place] # Baso # Seg Neutrophils % Seg Neuts % (Manual) Lymphocytes % (Manual) Monocytes % (Manual) Eosinophils % (Manual) Basophils % (Manual) Nucleated RBC % Seg Neutrophils # Seg Neutrophils # Man Lymphocytes # (Manual) Monocytes # (Manual) Eosinophils # (Manual) Basophils # (Manual) PT INR Fibrinogen dRVVT Confirm Interp Factor V Activity POC ABG pH POC ABG pCO2 POC ABG pO2 ABG pO2 ABG HCO3 ABG Base Excess ABG Hemoglobin Oxyhemoglobin Sodium Potassium 3.4 L Chloride Carbon Dioxide BUN 69 H Creatinine 1.5 H Glucose 105 H POC Glucose 117 H 110 H Lactic Acid Calcium Ionized Calcium Phosphorus Magnesium 1.50 L Direct Bilirubin AST ALT Alkaline Phosphatase Lactate Dehydrogenase Troponin T C-Reactive Protein Total Protein Albumin Prealbumin Triglycerides Cholesterol LDL Cholesterol Direct HDL Cholesterol 25-OH Vitamin D Total PTH Intact Urine pH Urine WBC (Auto) Urine Creatinine Urine Total Protein Fluid Total Protein Vancomycin Trough Rheumatoid Factor Complement C4 Miscellaneous Test Crossmatch 02/07/17 02/08/17 02/08/17 20:47 04:00 11:43 WBC RBC Hgb Hct MCV MCH MCHC RDW Plt Count Lymph % (Auto) [place] % (Auto) Lymph # [place] # Baso # Seg Neutrophils % Seg Neuts % (Manual) Lymphocytes % (Manual) Monocytes % (Manual) Eosinophils % (Manual) Basophils % (Manual) Nucleated RBC % Seg Neutrophils # Seg Neutrophils # Man Lymphocytes # (Manual) Monocytes # (Manual) Eosinophils # (Manual) Basophils # (Manual) PT INR Fibrinogen dRVVT Confirm Interp Factor V Activity POC ABG pH POC ABG pCO2 POC ABG pO2 ABG pO2 ABG HCO3 ABG Base Excess ABG Hemoglobin Oxyhemoglobin Sodium Potassium Chloride Carbon Dioxide BUN 86 H Creatinine 1.7 H Glucose POC Glucose 115 H 122 H Lactic Acid Calcium Ionized Calcium Phosphorus Magnesium 1.60 L Direct Bilirubin AST ALT Alkaline Phosphatase Lactate Dehydrogenase Troponin T C-Reactive Protein Total Protein Albumin Prealbumin Triglycerides Cholesterol LDL Cholesterol Direct HDL Cholesterol 25-OH Vitamin D Total PTH Intact Urine pH Urine WBC (Auto) Urine Creatinine Urine Total Protein Fluid Total Protein Vancomycin Trough Rheumatoid Factor Complement C4 Miscellaneous Test Crossmatch 02/08/17 02/09/17 02/09/17 17:36 05:44 11:30 WBC RBC Hgb Hct MCV MCH MCHC RDW Plt Count Lymph % (Auto) [place] % (Auto) Lymph # [place] # Baso # Seg Neutrophils % Seg Neuts % (Manual) Lymphocytes % (Manual) Monocytes % (Manual) Eosinophils % (Manual) Basophils % (Manual) Nucleated RBC % Seg Neutrophils # Seg Neutrophils # Man Lymphocytes # (Manual) Monocytes # (Manual) Eosinophils # (Manual) Basophils # (Manual) PT INR Fibrinogen dRVVT Confirm Interp Factor V Activity POC ABG pH POC ABG pCO2 POC ABG pO2 ABG pO2 ABG HCO3 ABG Base Excess ABG Hemoglobin Oxyhemoglobin Sodium Potassium Chloride Carbon Dioxide BUN Creatinine Glucose POC Glucose 125 H 117 H 120 H Lactic Acid Calcium Ionized Calcium Phosphorus Magnesium Direct Bilirubin AST ALT Alkaline Phosphatase Lactate Dehydrogenase Troponin T C-Reactive Protein Total Protein Albumin Prealbumin Triglycerides Cholesterol LDL Cholesterol Direct HDL Cholesterol 25-OH Vitamin D Total PTH Intact Urine pH Urine WBC (Auto) Urine Creatinine Urine Total Protein Fluid Total Protein Vancomycin Trough Rheumatoid Factor Complement C4 Miscellaneous Test Crossmatch 02/09/17 02/10/17 02/10/17 23:45 05:45 05:50 WBC RBC Hgb Hct MCV MCH MCHC RDW Plt Count Lymph % (Auto) [place] % (Auto) Lymph # [place] # Baso # Seg Neutrophils % Seg Neuts % (Manual) Lymphocytes % (Manual) Monocytes % (Manual) Eosinophils % (Manual) Basophils % (Manual) Nucleated RBC % Seg Neutrophils # Seg Neutrophils # Man Lymphocytes # (Manual) Monocytes # (Manual) Eosinophils # (Manual) Basophils # (Manual) PT INR Fibrinogen dRVVT Confirm Interp Factor V Activity POC ABG pH POC ABG pCO2 POC ABG pO2 ABG pO2 ABG HCO3 ABG Base Excess ABG Hemoglobin Oxyhemoglobin Sodium Potassium Chloride Carbon Dioxide BUN 85 H Creatinine 1.8 H Glucose 109 H POC Glucose 114 H 189 H Lactic Acid Calcium Ionized Calcium Phosphorus Magnesium 2.50 H Direct Bilirubin AST ALT Alkaline Phosphatase Lactate Dehydrogenase Troponin T C-Reactive Protein Total Protein Albumin Prealbumin Triglycerides Cholesterol LDL Cholesterol Direct HDL Cholesterol 25-OH Vitamin D Total PTH Intact Urine pH Urine WBC (Auto) Urine Creatinine Urine Total Protein Fluid Total Protein Vancomycin Trough Rheumatoid Factor Complement C4 Miscellaneous Test Crossmatch 02/10/17 02/10/17 02/10/17 05:51 11:55 17:42 WBC RBC Hgb Hct MCV MCH MCHC RDW Plt Count Lymph % (Auto) [place] % (Auto) Lymph # [place] # Baso # Seg Neutrophils % Seg Neuts % (Manual) Lymphocytes % (Manual) Monocytes % (Manual) Eosinophils % (Manual) Basophils % (Manual) Nucleated RBC % Seg Neutrophils # Seg Neutrophils # Man Lymphocytes # (Manual) Monocytes # (Manual) Eosinophils # (Manual) Basophils # (Manual) PT INR Fibrinogen dRVVT Confirm Interp Factor V Activity POC ABG pH POC ABG pCO2 POC ABG pO2 ABG pO2 ABG HCO3 ABG Base Excess ABG Hemoglobin Oxyhemoglobin Sodium Potassium Chloride Carbon Dioxide BUN Creatinine Glucose POC Glucose 106 H 146 H 132 H Lactic Acid Calcium Ionized Calcium Phosphorus Magnesium Direct Bilirubin AST ALT Alkaline Phosphatase Lactate Dehydrogenase Troponin T C-Reactive Protein Total Protein Albumin Prealbumin Triglycerides Cholesterol LDL Cholesterol Direct HDL Cholesterol 25-OH Vitamin D Total PTH Intact Urine pH Urine WBC (Auto) Urine Creatinine Urine Total Protein Fluid Total Protein Vancomycin Trough Rheumatoid Factor Complement C4 Miscellaneous Test Crossmatch 02/10/17 02/11/17 02/11/17 23:43 04:08 05:34 WBC RBC Hgb Hct MCV MCH MCHC RDW Plt Count Lymph % (Auto) [place] % (Auto) Lymph # [place] # Baso # Seg Neutrophils % Seg Neuts % (Manual) Lymphocytes % (Manual) Monocytes % (Manual) Eosinophils % (Manual) Basophils % (Manual) Nucleated RBC % Seg Neutrophils # Seg Neutrophils # Man Lymphocytes # (Manual) Monocytes # (Manual) Eosinophils # (Manual) Basophils # (Manual) PT INR Fibrinogen dRVVT Confirm Interp Factor V Activity POC ABG pH POC ABG pCO2 POC ABG pO2 ABG pO2 ABG HCO3 ABG Base Excess ABG Hemoglobin Oxyhemoglobin Sodium 136 L Potassium Chloride Carbon Dioxide BUN 65 H Creatinine 1.7 H Glucose 105 H POC Glucose 130 H 113 H Lactic Acid Calcium Ionized Calcium Phosphorus Magnesium Direct Bilirubin AST ALT Alkaline Phosphatase Lactate Dehydrogenase Troponin T C-Reactive Protein Total Protein Albumin Prealbumin Triglycerides Cholesterol LDL Cholesterol Direct HDL Cholesterol 25-OH Vitamin D Total PTH Intact Urine pH Urine WBC (Auto) Urine Creatinine Urine Total Protein Fluid Total Protein Vancomycin Trough Rheumatoid Factor Complement C4 Miscellaneous Test Crossmatch 02/11/17 02/11/17 02/12/17 11:56 23:18 06:19 WBC RBC Hgb Hct MCV MCH MCHC RDW Plt Count Lymph % (Auto) [place] % (Auto) Lymph # [place] # Baso # Seg Neutrophils % Seg Neuts % (Manual) Lymphocytes % (Manual) Monocytes % (Manual) Eosinophils % (Manual) Basophils % (Manual) Nucleated RBC % Seg Neutrophils # Seg Neutrophils # Man Lymphocytes # (Manual) Monocytes # (Manual) Eosinophils # (Manual) Basophils # (Manual) PT INR Fibrinogen dRVVT Confirm Interp Factor V Activity POC ABG pH POC ABG pCO2 POC ABG pO2 ABG pO2 ABG HCO3 ABG Base Excess ABG Hemoglobin Oxyhemoglobin Sodium 136 L Potassium Chloride 97.1 L Carbon Dioxide BUN 93 H Creatinine 2.4 H Glucose POC Glucose 126 H 119 H Lactic Acid Calcium 11.0 H Ionized Calcium Phosphorus Magnesium Direct Bilirubin AST ALT Alkaline Phosphatase Lactate Dehydrogenase Troponin T C-Reactive Protein Total Protein Albumin Prealbumin Triglycerides Cholesterol LDL Cholesterol Direct HDL Cholesterol 25-OH Vitamin D Total PTH Intact Urine pH Urine WBC (Auto) Urine Creatinine Urine Total Protein Fluid Total Protein Vancomycin Trough Rheumatoid Factor Complement C4 Miscellaneous Test Crossmatch 02/12/17 02/12/17 02/12/17 08:00 10:25 11:42 WBC 15.4 H RBC 2.63 L Hgb 6.9 L Hct 22.6 L MCV MCH 26 L MCHC RDW 20.5 H Plt Count Lymph % (Auto) [place] % (Auto) Lymph # [place] # Baso # Seg Neutrophils % Seg Neuts % (Manual) Lymphocytes % (Manual) Monocytes % (Manual) Eosinophils % (Manual) Basophils % (Manual) Nucleated RBC % Seg Neutrophils # Seg Neutrophils # Man Lymphocytes # (Manual) Monocytes # (Manual) Eosinophils # (Manual) Basophils # (Manual) PT INR Fibrinogen dRVVT Confirm Interp Factor V Activity POC ABG pH POC ABG pCO2 POC ABG pO2 ABG pO2 ABG HCO3 ABG Base Excess ABG Hemoglobin Oxyhemoglobin Sodium Potassium Chloride Carbon Dioxide BUN Creatinine Glucose POC Glucose 142 H Lactic Acid Calcium Ionized Calcium Phosphorus Magnesium Direct Bilirubin AST ALT Alkaline Phosphatase Lactate Dehydrogenase Troponin T C-Reactive Protein Total Protein Albumin Prealbumin Triglycerides Cholesterol LDL Cholesterol Direct HDL Cholesterol 25-OH Vitamin D Total PTH Intact Urine pH Urine WBC (Auto) Urine Creatinine Urine Total Protein Fluid Total Protein Vancomycin Trough Rheumatoid Factor Complement C4 Miscellaneous Test Crossmatch See Detail 02/12/17 02/13/17 02/13/17 18:04 00:04 05:00 WBC RBC Hgb Hct MCV MCH MCHC RDW Plt Count Lymph % (Auto) [place] % (Auto) Lymph # [place] # Baso # Seg Neutrophils % Seg Neuts % (Manual) Lymphocytes % (Manual) Monocytes % (Manual) Eosinophils % (Manual) Basophils % (Manual) Nucleated RBC % Seg Neutrophils # Seg Neutrophils # Man Lymphocytes # (Manual) Monocytes # (Manual) Eosinophils # (Manual) Basophils # (Manual) PT INR Fibrinogen dRVVT Confirm Interp Factor V Activity POC ABG pH POC ABG pCO2 POC ABG pO2 ABG pO2 ABG HCO3 ABG Base Excess ABG Hemoglobin Oxyhemoglobin Sodium 134 L Potassium Chloride 96.1 L Carbon Dioxide 20 L BUN 125 H Creatinine 3.0 H Glucose 111 H POC Glucose 135 H 109 H Lactic Acid Calcium 11.3 H Ionized Calcium Phosphorus Magnesium Direct Bilirubin AST ALT Alkaline Phosphatase Lactate Dehydrogenase Troponin T C-Reactive Protein Total Protein Albumin Prealbumin Triglycerides Cholesterol LDL Cholesterol Direct HDL Cholesterol 25-OH Vitamin D Total PTH Intact Urine pH Urine WBC (Auto) Urine Creatinine Urine Total Protein Fluid Total Protein Vancomycin Trough Rheumatoid Factor Complement C4 Miscellaneous Test Crossmatch 02/13/17 02/13/17 02/13/17 05:00 05:28 12:03 WBC 11.9 H RBC 2.92 L Hgb 7.8 L Hct 25.2 L MCV MCH 27 L MCHC RDW 19.3 H Plt Count Lymph % (Auto) [place] % (Auto) Lymph # [place] # Baso # Seg Neutrophils % Seg Neuts % (Manual) Lymphocytes % (Manual) Monocytes % (Manual) Eosinophils % (Manual) Basophils % (Manual) Nucleated RBC % Seg Neutrophils # Seg Neutrophils # Man Lymphocytes # (Manual) Monocytes # (Manual) Eosinophils # (Manual) Basophils # (Manual) PT INR Fibrinogen dRVVT Confirm Interp Factor V Activity POC ABG pH POC ABG pCO2 POC ABG pO2 ABG pO2 ABG HCO3 ABG Base Excess ABG Hemoglobin Oxyhemoglobin Sodium Potassium Chloride Carbon Dioxide BUN Creatinine Glucose POC Glucose 124 H 160 H Lactic Acid Calcium Ionized Calcium Phosphorus Magnesium Direct Bilirubin AST ALT Alkaline Phosphatase Lactate Dehydrogenase Troponin T C-Reactive Protein Total Protein Albumin Prealbumin Triglycerides Cholesterol LDL Cholesterol Direct HDL Cholesterol 25-OH Vitamin D Total PTH Intact Urine pH Urine WBC (Auto) Urine Creatinine Urine Total Protein Fluid Total Protein Vancomycin Trough Rheumatoid Factor Complement C4 Miscellaneous Test Crossmatch 02/13/17 02/14/17 02/14/17 18:09 06:16 08:08 WBC 15.2 H RBC 2.97 L Hgb 8.1 L Hct 26.3 L MCV MCH MCHC RDW 19.3 H Plt Count Lymph % (Auto) [place] % (Auto) Lymph # [place] # Baso # Seg Neutrophils % Seg Neuts % (Manual) Lymphocytes % (Manual) Monocytes % (Manual) Eosinophils % (Manual) Basophils % (Manual) Nucleated RBC % Seg Neutrophils # Seg Neutrophils # Man Lymphocytes # (Manual) Monocytes # (Manual) Eosinophils # (Manual) Basophils # (Manual) PT INR Fibrinogen dRVVT Confirm Interp Factor V Activity POC ABG pH POC ABG pCO2 POC ABG pO2 ABG pO2 ABG HCO3 ABG Base Excess ABG Hemoglobin Oxyhemoglobin Sodium Potassium Chloride Carbon Dioxide BUN Creatinine Glucose POC Glucose 110 H 112 H Lactic Acid Calcium Ionized Calcium Phosphorus Magnesium Direct Bilirubin AST ALT Alkaline Phosphatase Lactate Dehydrogenase Troponin T C-Reactive Protein Total Protein Albumin Prealbumin Triglycerides Cholesterol LDL Cholesterol Direct HDL Cholesterol 25-OH Vitamin D Total PTH Intact Urine pH Urine WBC (Auto) Urine Creatinine Urine Total Protein Fluid Total Protein Vancomycin Trough Rheumatoid Factor Complement C4 Miscellaneous Test Crossmatch 02/14/17 02/14/17 02/15/17 08:08 17:41 04:15 WBC RBC Hgb Hct MCV MCH MCHC RDW Plt Count Lymph % (Auto) [place] % (Auto) Lymph # [place] # Baso # Seg Neutrophils % Seg Neuts % (Manual) Lymphocytes % (Manual) Monocytes % (Manual) Eosinophils % (Manual) Basophils % (Manual) Nucleated RBC % Seg Neutrophils # Seg Neutrophils # Man Lymphocytes # (Manual) Monocytes # (Manual) Eosinophils # (Manual) Basophils # (Manual) PT INR Fibrinogen dRVVT Confirm Interp Factor V Activity POC ABG pH POC ABG pCO2 POC ABG pO2 ABG pO2 ABG HCO3 ABG Base Excess ABG Hemoglobin Oxyhemoglobin Sodium Potassium Chloride Carbon Dioxide 18 L 21 L BUN 79 H 113 H Creatinine 2.1 H 2.8 H Glucose POC Glucose 118 H Lactic Acid Calcium 10.7 H Ionized Calcium Phosphorus 1.70 L D Magnesium 1.60 L Direct Bilirubin AST ALT Alkaline Phosphatase Lactate Dehydrogenase Troponin T C-Reactive Protein Total Protein Albumin Prealbumin Triglycerides Cholesterol LDL Cholesterol Direct HDL Cholesterol 25-OH Vitamin D Total PTH Intact Urine pH Urine WBC (Auto) Urine Creatinine Urine Total Protein Fluid Total Protein Vancomycin Trough Rheumatoid Factor Complement C4 Miscellaneous Test Crossmatch 02/15/17 02/15/17 02/15/17 06:06 11:31 17:52 WBC RBC Hgb Hct MCV MCH MCHC RDW Plt Count Lymph % (Auto) [place] % (Auto) Lymph # [place] # Baso # Seg Neutrophils % Seg Neuts % (Manual) Lymphocytes % (Manual) Monocytes % (Manual) Eosinophils % (Manual) Basophils % (Manual) Nucleated RBC % Seg Neutrophils # Seg Neutrophils # Man Lymphocytes # (Manual) Monocytes # (Manual) Eosinophils # (Manual) Basophils # (Manual) PT INR Fibrinogen dRVVT Confirm Interp Factor V Activity POC ABG pH POC ABG pCO2 POC ABG pO2 ABG pO2 ABG HCO3 ABG Base Excess ABG Hemoglobin Oxyhemoglobin Sodium Potassium Chloride Carbon Dioxide BUN Creatinine Glucose POC Glucose 115 H 129 H 201 H Lactic Acid Calcium Ionized Calcium Phosphorus Magnesium Direct Bilirubin AST ALT Alkaline Phosphatase Lactate Dehydrogenase Troponin T C-Reactive Protein Total Protein Albumin Prealbumin Triglycerides Cholesterol LDL Cholesterol Direct HDL Cholesterol 25-OH Vitamin D Total PTH Intact Urine pH Urine WBC (Auto) Urine Creatinine Urine Total Protein Fluid Total Protein Vancomycin Trough Rheumatoid Factor Complement C4 Miscellaneous Test Crossmatch 02/15/17 02/15/17 02/15/17 19:08 19:08 19:08 WBC RBC Hgb Hct MCV MCH MCHC RDW Plt Count Lymph % (Auto) [place] % (Auto) Lymph # [place] # Baso # Seg Neutrophils % Seg Neuts % (Manual) Lymphocytes % (Manual) Monocytes % (Manual) Eosinophils % (Manual) Basophils % (Manual) Nucleated RBC % Seg Neutrophils # Seg Neutrophils # Man Lymphocytes # (Manual) Monocytes # (Manual) Eosinophils # (Manual) Basophils # (Manual) PT INR Fibrinogen dRVVT Confirm Interp Factor V Activity POC ABG pH POC ABG pCO2 POC ABG pO2 ABG pO2 ABG HCO3 ABG Base Excess ABG Hemoglobin Oxyhemoglobin Sodium Potassium Chloride Carbon Dioxide BUN Creatinine Glucose POC Glucose Lactic Acid Calcium Ionized Calcium 6.0 H Phosphorus Magnesium Direct Bilirubin AST ALT Alkaline Phosphatase Lactate Dehydrogenase Troponin T C-Reactive Protein Total Protein Albumin Prealbumin Triglycerides Cholesterol LDL Cholesterol Direct HDL Cholesterol 25-OH Vitamin D Total 13 L PTH Intact 10.88 L Urine pH Urine WBC (Auto) Urine Creatinine Urine Total Protein Fluid Total Protein Vancomycin Trough Rheumatoid Factor Complement C4 Miscellaneous Test Crossmatch 02/16/17 02/16/17 02/16/17 05:12 06:00 12:39 WBC RBC Hgb Hct MCV MCH MCHC RDW Plt Count Lymph % (Auto) [place] % (Auto) Lymph # [place] # Baso # Seg Neutrophils % Seg Neuts % (Manual) Lymphocytes % (Manual) Monocytes % (Manual) Eosinophils % (Manual) Basophils % (Manual) Nucleated RBC % Seg Neutrophils # Seg Neutrophils # Man Lymphocytes # (Manual) Monocytes # (Manual) Eosinophils # (Manual) Basophils # (Manual) PT INR Fibrinogen dRVVT Confirm Interp Factor V Activity POC ABG pH POC ABG pCO2 POC ABG pO2 ABG pO2 ABG HCO3 ABG Base Excess ABG Hemoglobin Oxyhemoglobin Sodium Potassium Chloride Carbon Dioxide BUN 74 H Creatinine 1.7 H Glucose 102 H POC Glucose 125 H 109 H Lactic Acid Calcium Ionized Calcium Phosphorus 2.10 L D Magnesium Direct Bilirubin AST ALT Alkaline Phosphatase Lactate Dehydrogenase Troponin T C-Reactive Protein Total Protein Albumin Prealbumin Triglycerides Cholesterol LDL Cholesterol Direct HDL Cholesterol 25-OH Vitamin D Total PTH Intact Urine pH Urine WBC (Auto) Urine Creatinine Urine Total Protein Fluid Total Protein Vancomycin Trough Rheumatoid Factor Complement C4 Miscellaneous Test Crossmatch 02/16/17 02/16/17 02/17/17 17:31 23:57 05:30 WBC RBC Hgb Hct MCV MCH MCHC RDW Plt Count Lymph % (Auto) [place] % (Auto) Lymph # [place] # Baso # Seg Neutrophils % Seg Neuts % (Manual) Lymphocytes % (Manual) Monocytes % (Manual) Eosinophils % (Manual) Basophils % (Manual) Nucleated RBC % Seg Neutrophils # Seg Neutrophils # Man Lymphocytes # (Manual) Monocytes # (Manual) Eosinophils # (Manual) Basophils # (Manual) PT INR Fibrinogen dRVVT Confirm Interp Factor V Activity POC ABG pH POC ABG pCO2 POC ABG pO2 ABG pO2 ABG HCO3 ABG Base Excess ABG Hemoglobin Oxyhemoglobin Sodium Potassium Chloride Carbon Dioxide BUN Creatinine Glucose POC Glucose 106 H 127 H 122 H Lactic Acid Calcium Ionized Calcium Phosphorus Magnesium Direct Bilirubin AST ALT Alkaline Phosphatase Lactate Dehydrogenase Troponin T C-Reactive Protein Total Protein Albumin Prealbumin Triglycerides Cholesterol LDL Cholesterol Direct HDL Cholesterol 25-OH Vitamin D Total PTH Intact Urine pH Urine WBC (Auto) Urine Creatinine Urine Total Protein Fluid Total Protein Vancomycin Trough Rheumatoid Factor Complement C4 Miscellaneous Test Crossmatch 02/17/17 02/17/17 02/17/17 06:00 12: 17:57 WBC RBC Hgb Hct MCV MCH MCHC RDW Plt Count Lymph % (Auto) [place] % (Auto) Lymph # [place] # Baso # Seg Neutrophils % Seg Neuts % (Manual) Lymphocytes % (Manual) Monocytes % (Manual) Eosinophils % (Manual) Basophils % (Manual) Nucleated RBC % Seg Neutrophils # Seg Neutrophils # Man Lymphocytes # (Manual) Monocytes # (Manual) Eosinophils # (Manual) Basophils # (Manual) PT INR Fibrinogen dRVVT Confirm Interp Factor V Activity POC ABG pH POC ABG pCO2 POC ABG pO2 ABG pO2 ABG HCO3 ABG Base Excess ABG Hemoglobin Oxyhemoglobin Sodium Potassium Chloride Carbon Dioxide BUN 94 H Creatinine 2.3 H Glucose 106 H POC Glucose 173 H 140 H Lactic Acid Calcium Ionized Calcium Phosphorus Magnesium Direct Bilirubin AST ALT Alkaline Phosphatase Lactate Dehydrogenase Troponin T C-Reactive Protein Total Protein Albumin Prealbumin Triglycerides Cholesterol LDL Cholesterol Direct HDL Cholesterol 25-OH Vitamin D Total PTH Intact Urine pH Urine WBC (Auto) Urine Creatinine Urine Total Protein Fluid Total Protein Vancomycin Trough Rheumatoid Factor Complement C4 Miscellaneous Test Crossmatch 02/18/17 02/18/17 02/18/17 00:20 05:30 06:14 WBC RBC Hgb Hct MCV MCH MCHC RDW Plt Count Lymph % (Auto) [place] % (Auto) Lymph # [place] # Baso # Seg Neutrophils % Seg Neuts % (Manual) Lymphocytes % (Manual) Monocytes % (Manual) Eosinophils % (Manual) Basophils % (Manual) Nucleated RBC % Seg Neutrophils # Seg Neutrophils # Man Lymphocytes # (Manual) Monocytes # (Manual) Eosinophils # (Manual) Basophils # (Manual) PT INR Fibrinogen dRVVT Confirm Interp Factor V Activity POC ABG pH POC ABG pCO2 POC ABG pO2 ABG pO2 ABG HCO3 ABG Base Excess ABG Hemoglobin Oxyhemoglobin Sodium 136 L Potassium Chloride 97.5 L Carbon Dioxide BUN 73 H Creatinine 1.9 H Glucose POC Glucose 132 H 106 H Lactic Acid Calcium Ionized Calcium Phosphorus Magnesium Direct Bilirubin AST ALT Alkaline Phosphatase Lactate Dehydrogenase Troponin T C-Reactive Protein Total Protein Albumin Prealbumin Triglycerides Cholesterol LDL Cholesterol Direct HDL Cholesterol 25-OH Vitamin D Total PTH Intact Urine pH Urine WBC (Auto) Urine Creatinine Urine Total Protein Fluid Total Protein Vancomycin Trough Rheumatoid Factor Complement C4 Miscellaneous Test Crossmatch 02/18/17 02/18/17 02/18/17 09:51 11:32 17:59 WBC 13.1 H RBC 2.77 L Hgb 7.6 L Hct 23.9 L MCV MCH MCHC RDW 19.0 H Plt Count Lymph % (Auto) [place] % (Auto) 11.1 H Lymph # [place] # 1.5 H Baso # Seg Neutrophils % Seg Neuts % (Manual) Lymphocytes % (Manual) Monocytes % (Manual) Eosinophils % (Manual) Basophils % (Manual) Nucleated RBC % Seg Neutrophils # 9.1 H Seg Neutrophils # Man Lymphocytes # (Manual) Monocytes # (Manual) Eosinophils # (Manual) Basophils # (Manual) PT INR Fibrinogen dRVVT Confirm Interp Factor V Activity POC ABG pH POC ABG pCO2 POC ABG pO2 ABG pO2 ABG HCO3 ABG Base Excess ABG Hemoglobin Oxyhemoglobin Sodium Potassium Chloride Carbon Dioxide BUN Creatinine Glucose POC Glucose 123 H 119 H Lactic Acid Calcium Ionized Calcium Phosphorus Magnesium Direct Bilirubin AST ALT Alkaline Phosphatase Lactate Dehydrogenase Troponin T C-Reactive Protein Total Protein Albumin Prealbumin Triglycerides Cholesterol LDL Cholesterol Direct HDL Cholesterol 25-OH Vitamin D Total PTH Intact Urine pH Urine WBC (Auto) Urine Creatinine Urine Total Protein Fluid Total Protein Vancomycin Trough Rheumatoid Factor Complement C4 Miscellaneous Test Crossmatch 02/18/17 02/19/17 02/19/17 23:47 05:36 09:45 WBC RBC Hgb Hct MCV MCH 27 L MCHC RDW 19.2 H Plt Count Lymph % (Auto) [place] % (Auto) Lymph # [place] # Baso # Seg Neutrophils % Seg Neuts % (Manual) Lymphocytes % (Manual) Monocytes % (Manual) Eosinophils % (Manual) Basophils % (Manual) Nucleated RBC % Seg Neutrophils # Seg Neutrophils # Man Lymphocytes # (Manual) Monocytes # (Manual) Eosinophils # (Manual) Basophils # (Manual) PT INR Fibrinogen dRVVT Confirm Interp Factor V Activity POC ABG pH POC ABG pCO2 POC ABG pO2 ABG pO2 ABG HCO3 ABG Base Excess ABG Hemoglobin Oxyhemoglobin Sodium Potassium Chloride Carbon Dioxide BUN Creatinine Glucose POC Glucose 110 H 121 H Lactic Acid Calcium Ionized Calcium Phosphorus Magnesium Direct Bilirubin AST ALT Alkaline Phosphatase Lactate Dehydrogenase Troponin T C-Reactive Protein Total Protein Albumin Prealbumin Triglycerides Cholesterol LDL Cholesterol Direct HDL Cholesterol 25-OH Vitamin D Total PTH Intact Urine pH Urine WBC (Auto) Urine Creatinine Urine Total Protein Fluid Total Protein Vancomycin Trough Rheumatoid Factor Complement C4 Miscellaneous Test Crossmatch 02/19/17 02/20/17 02/20/17 09:45 00:10 06:15 WBC RBC Hgb Hct MCV MCH MCHC RDW Plt Count Lymph % (Auto) [place] % (Auto) Lymph # [place] # Baso # Seg Neutrophils % Seg Neuts % (Manual) Lymphocytes % (Manual) Monocytes % (Manual) Eosinophils % (Manual) Basophils % (Manual) Nucleated RBC % Seg Neutrophils # Seg Neutrophils # Man Lymphocytes # (Manual) Monocytes # (Manual) Eosinophils # (Manual) Basophils # (Manual) PT INR Fibrinogen dRVVT Confirm Interp Factor V Activity POC ABG pH POC ABG pCO2 POC ABG pO2 ABG pO2 ABG HCO3 ABG Base Excess ABG Hemoglobin Oxyhemoglobin Sodium 136 L Potassium 5.1 H Chloride 97.6 L Carbon Dioxide 20 L 18 L BUN 110 H 135 H Creatinine 2.6 H 3.2 H Glucose 106 H 110 H POC Glucose 117 H Lactic Acid Calcium Ionized Calcium Phosphorus 4.70 H D 5.60 H Magnesium Direct Bilirubin AST ALT Alkaline Phosphatase Lactate Dehydrogenase Troponin T C-Reactive Protein Total Protein Albumin Prealbumin Triglycerides Cholesterol LDL Cholesterol Direct HDL Cholesterol 25-OH Vitamin D Total PTH Intact Urine pH Urine WBC (Auto) Urine Creatinine Urine Total Protein Fluid Total Protein Vancomycin Trough Rheumatoid Factor Complement C4 Miscellaneous Test Crossmatch 02/20/17 02/20/17 02/21/17 11:30 17:51 00:14 WBC RBC Hgb Hct MCV MCH MCHC RDW Plt Count Lymph % (Auto) [place] % (Auto) Lymph # [place] # Baso # Seg Neutrophils % Seg Neuts % (Manual) Lymphocytes % (Manual) Monocytes % (Manual) Eosinophils % (Manual) Basophils % (Manual) Nucleated RBC % Seg Neutrophils # Seg Neutrophils # Man Lymphocytes # (Manual) Monocytes # (Manual) Eosinophils # (Manual) Basophils # (Manual) PT INR Fibrinogen dRVVT Confirm Interp Factor V Activity POC ABG pH POC ABG pCO2 POC ABG pO2 ABG pO2 ABG HCO3 ABG Base Excess ABG Hemoglobin Oxyhemoglobin Sodium Potassium Chloride Carbon Dioxide BUN Creatinine Glucose POC Glucose 173 H 133 H 125 H Lactic Acid Calcium Ionized Calcium Phosphorus Magnesium Direct Bilirubin AST ALT Alkaline Phosphatase Lactate Dehydrogenase Troponin T C-Reactive Protein Total Protein Albumin Prealbumin Triglycerides Cholesterol LDL Cholesterol Direct HDL Cholesterol 25-OH Vitamin D Total PTH Intact Urine pH Urine WBC (Auto) Urine Creatinine Urine Total Protein Fluid Total Protein Vancomycin Trough Rheumatoid Factor Complement C4 Miscellaneous Test Crossmatch 02/21/17 02/21/17 02/21/17 04:09 05:03 11:58 WBC RBC Hgb Hct MCV MCH MCHC RDW Plt Count Lymph % (Auto) [place] % (Auto) Lymph # [place] # Baso # Seg Neutrophils % Seg Neuts % (Manual) Lymphocytes % (Manual) Monocytes % (Manual) Eosinophils % (Manual) Basophils % (Manual) Nucleated RBC % Seg Neutrophils # Seg Neutrophils # Man Lymphocytes # (Manual) Monocytes # (Manual) Eosinophils # (Manual) Basophils # (Manual) PT INR Fibrinogen dRVVT Confirm Interp Factor V Activity POC ABG pH POC ABG pCO2 POC ABG pO2 ABG pO2 ABG HCO3 ABG Base Excess ABG Hemoglobin Oxyhemoglobin Sodium 135 L Potassium Chloride Carbon Dioxide 20 L BUN 76 H Creatinine 2.0 H Glucose 125 H POC Glucose 134 H 139 H Lactic Acid Calcium Ionized Calcium Phosphorus Magnesium Direct Bilirubin AST ALT Alkaline Phosphatase Lactate Dehydrogenase Troponin T C-Reactive Protein Total Protein Albumin Prealbumin Triglycerides Cholesterol LDL Cholesterol Direct HDL Cholesterol 25-OH Vitamin D Total PTH Intact Urine pH Urine WBC (Auto) Urine Creatinine Urine Total Protein Fluid Total Protein Vancomycin Trough Rheumatoid Factor Complement C4 Miscellaneous Test Crossmatch 02/21/17 02/21/17 02/22/17 17:16 23:41 04:10 WBC RBC Hgb Hct MCV MCH MCHC RDW Plt Count Lymph % (Auto) [place] % (Auto) Lymph # [place] # Baso # Seg Neutrophils % Seg Neuts % (Manual) Lymphocytes % (Manual) Monocytes % (Manual) Eosinophils % (Manual) Basophils % (Manual) Nucleated RBC % Seg Neutrophils # Seg Neutrophils # Man Lymphocytes # (Manual) Monocytes # (Manual) Eosinophils # (Manual) Basophils # (Manual) PT INR Fibrinogen dRVVT Confirm Interp Factor V Activity POC ABG pH POC ABG pCO2 POC ABG pO2 ABG pO2 ABG HCO3 ABG Base Excess ABG Hemoglobin Oxyhemoglobin Sodium 135 L Potassium Chloride 97.7 L Carbon Dioxide 21 L BUN 101 H Creatinine 2.5 H Glucose 116 H POC Glucose 120 H 128 H Lactic Acid Calcium Ionized Calcium Phosphorus Magnesium Direct Bilirubin AST ALT Alkaline Phosphatase Lactate Dehydrogenase Troponin T C-Reactive Protein Total Protein Albumin 1.3 L Prealbumin Triglycerides Cholesterol LDL Cholesterol Direct HDL Cholesterol 25-OH Vitamin D Total PTH Intact Urine pH Urine WBC (Auto) Urine Creatinine Urine Total Protein Fluid Total Protein Vancomycin Trough Rheumatoid Factor Complement C4 Miscellaneous Test Crossmatch 02/22/17 02/22/17 02/22/17 06:03 11:38 18:19 WBC RBC Hgb Hct MCV MCH MCHC RDW Plt Count Lymph % (Auto) [place] % (Auto) Lymph # [place] # Baso # Seg Neutrophils % Seg Neuts % (Manual) Lymphocytes % (Manual) Monocytes % (Manual) Eosinophils % (Manual) Basophils % (Manual) Nucleated RBC % Seg Neutrophils # Seg Neutrophils # Man Lymphocytes # (Manual) Monocytes # (Manual) Eosinophils # (Manual) Basophils # (Manual) PT INR Fibrinogen dRVVT Confirm Interp Factor V Activity POC ABG pH POC ABG pCO2 POC ABG pO2 ABG pO2 ABG HCO3 ABG Base Excess ABG Hemoglobin Oxyhemoglobin Sodium Potassium Chloride Carbon Dioxide BUN Creatinine Glucose POC Glucose 126 H 147 H 121 H Lactic Acid Calcium Ionized Calcium Phosphorus Magnesium Direct Bilirubin AST ALT Alkaline Phosphatase Lactate Dehydrogenase Troponin T C-Reactive Protein Total Protein Albumin Prealbumin Triglycerides Cholesterol LDL Cholesterol Direct HDL Cholesterol 25-OH Vitamin D Total PTH Intact Urine pH Urine WBC (Auto) Urine Creatinine Urine Total Protein Fluid Total Protein Vancomycin Trough Rheumatoid Factor Complement C4 Miscellaneous Test Crossmatch 02/23/17 02/23/17 02/23/17 05:00 05:46 12:27 WBC RBC Hgb Hct MCV MCH MCHC RDW Plt Count Lymph % (Auto) [place] % (Auto) Lymph # [place] # Baso # Seg Neutrophils % Seg Neuts % (Manual) Lymphocytes % (Manual) Monocytes % (Manual) Eosinophils % (Manual) Basophils % (Manual) Nucleated RBC % Seg Neutrophils # Seg Neutrophils # Man Lymphocytes # (Manual) Monocytes # (Manual) Eosinophils # (Manual) Basophils # (Manual) PT INR Fibrinogen dRVVT Confirm Interp Factor V Activity POC ABG pH POC ABG pCO2 POC ABG pO2 ABG pO2 ABG HCO3 ABG Base Excess ABG Hemoglobin Oxyhemoglobin Sodium 136 L Potassium Chloride 97.1 L Carbon Dioxide BUN 50 H Creatinine 1.5 H Glucose POC Glucose 110 H 115 H Lactic Acid Calcium 8.1 L Ionized Calcium Phosphorus 1.90 L D Magnesium Direct Bilirubin AST ALT Alkaline Phosphatase Lactate Dehydrogenase Troponin T C-Reactive Protein Total Protein Albumin Prealbumin Triglycerides Cholesterol LDL Cholesterol Direct HDL Cholesterol 25-OH Vitamin D Total PTH Intact Urine pH Urine WBC (Auto) Urine Creatinine Urine Total Protein Fluid Total Protein Vancomycin Trough Rheumatoid Factor Complement C4 Miscellaneous Test Crossmatch 02/23/17 02/23/17 02/24/17 18:02 23:18 05:04 WBC RBC Hgb Hct MCV MCH MCHC RDW Plt Count Lymph % (Auto) [place] % (Auto) Lymph # [place] # Baso # Seg Neutrophils % Seg Neuts % (Manual) Lymphocytes % (Manual) Monocytes % (Manual) Eosinophils % (Manual) Basophils % (Manual) Nucleated RBC % Seg Neutrophils # Seg Neutrophils # Man Lymphocytes # (Manual) Monocytes # (Manual) Eosinophils # (Manual) Basophils # (Manual) PT INR Fibrinogen dRVVT Confirm Interp Factor V Activity POC ABG pH POC ABG pCO2 POC ABG pO2 ABG pO2 ABG HCO3 ABG Base Excess ABG Hemoglobin Oxyhemoglobin Sodium Potassium Chloride Carbon Dioxide BUN Creatinine Glucose POC Glucose 111 H 126 H 121 H Lactic Acid Calcium Ionized Calcium Phosphorus Magnesium Direct Bilirubin AST ALT Alkaline Phosphatase Lactate Dehydrogenase Troponin T C-Reactive Protein Total Protein Albumin Prealbumin Triglycerides Cholesterol LDL Cholesterol Direct HDL Cholesterol 25-OH Vitamin D Total PTH Intact Urine pH Urine WBC (Auto) Urine Creatinine Urine Total Protein Fluid Total Protein Vancomycin Trough Rheumatoid Factor Complement C4 Miscellaneous Test Crossmatch 02/24/17 02/24/17 02/24/17 05:20 10:05 11:34 WBC RBC 2.95 L Hgb 8.4 L Hct 25.7 L MCV MCH MCHC RDW 20.8 H Plt Count Lymph % (Auto) [place] % (Auto) Lymph # [place] # Baso # Seg Neutrophils % 71.8 H Seg Neuts % (Manual) Lymphocytes % (Manual) Monocytes % (Manual) Eosinophils % (Manual) Basophils % (Manual) Nucleated RBC % Seg Neutrophils # Seg Neutrophils # Man Lymphocytes # (Manual) Monocytes # (Manual) Eosinophils # (Manual) Basophils # (Manual) PT INR Fibrinogen dRVVT Confirm Interp Factor V Activity POC ABG pH POC ABG pCO2 POC ABG pO2 ABG pO2 ABG HCO3 ABG Base Excess ABG Hemoglobin Oxyhemoglobin Sodium 136 L Potassium Chloride 95.5 L Carbon Dioxide BUN 76 H Creatinine 2.2 H Glucose 109 H POC Glucose 123 H Lactic Acid Calcium Ionized Calcium Phosphorus Magnesium Direct Bilirubin AST ALT Alkaline Phosphatase Lactate Dehydrogenase Troponin T C-Reactive Protein Total Protein Albumin Prealbumin Triglycerides Cholesterol LDL Cholesterol Direct HDL Cholesterol 25-OH Vitamin D Total PTH Intact Urine pH Urine WBC (Auto) Urine Creatinine Urine Total Protein Fluid Total Protein Vancomycin Trough Rheumatoid Factor Complement C4 Miscellaneous Test Crossmatch 02/24/17 02/24/17 02/25/17 17:43 23:02 05:00 WBC RBC Hgb Hct MCV MCH MCHC RDW Plt Count Lymph % (Auto) [place] % (Auto) Lymph # [place] # Baso # Seg Neutrophils % Seg Neuts % (Manual) Lymphocytes % (Manual) Monocytes % (Manual) Eosinophils % (Manual) Basophils % (Manual) Nucleated RBC % Seg Neutrophils # Seg Neutrophils # Man Lymphocytes # (Manual) Monocytes # (Manual) Eosinophils # (Manual) Basophils # (Manual) PT INR Fibrinogen dRVVT Confirm Interp Factor V Activity POC ABG pH POC ABG pCO2 POC ABG pO2 ABG pO2 ABG HCO3 ABG Base Excess ABG Hemoglobin Oxyhemoglobin Sodium Potassium Chloride 96.8 L Carbon Dioxide BUN 94 H Creatinine 2.8 H Glucose 118 H POC Glucose 128 H 144 H Lactic Acid Calcium Ionized Calcium Phosphorus Magnesium Direct Bilirubin AST ALT Alkaline Phosphatase Lactate Dehydrogenase Troponin T C-Reactive Protein Total Protein Albumin Prealbumin Triglycerides Cholesterol LDL Cholesterol Direct HDL Cholesterol 25-OH Vitamin D Total PTH Intact Urine pH Urine WBC (Auto) Urine Creatinine Urine Total Protein Fluid Total Protein Vancomycin Trough Rheumatoid Factor Complement C4 Miscellaneous Test Crossmatch 02/25/17 02/25/17 02/25/17 05:32 11:44 18:18 WBC RBC Hgb Hct MCV MCH MCHC RDW Plt Count Lymph % (Auto) [place] % (Auto) Lymph # [place] # Baso # Seg Neutrophils % Seg Neuts % (Manual) Lymphocytes % (Manual) Monocytes % (Manual) Eosinophils % (Manual) Basophils % (Manual) Nucleated RBC % Seg Neutrophils # Seg Neutrophils # Man Lymphocytes # (Manual) Monocytes # (Manual) Eosinophils # (Manual) Basophils # (Manual) PT INR Fibrinogen dRVVT Confirm Interp Factor V Activity POC ABG pH POC ABG pCO2 POC ABG pO2 ABG pO2 ABG HCO3 ABG Base Excess ABG Hemoglobin Oxyhemoglobin Sodium Potassium Chloride Carbon Dioxide BUN Creatinine Glucose POC Glucose 118 H 106 H 210 H Lactic Acid Calcium Ionized Calcium Phosphorus Magnesium Direct Bilirubin AST ALT Alkaline Phosphatase Lactate Dehydrogenase Troponin T C-Reactive Protein Total Protein Albumin Prealbumin Triglycerides Cholesterol LDL Cholesterol Direct HDL Cholesterol 25-OH Vitamin D Total PTH Intact Urine pH Urine WBC (Auto) Urine Creatinine Urine Total Protein Fluid Total Protein Vancomycin Trough Rheumatoid Factor Complement C4 Miscellaneous Test Crossmatch 02/26/17 02/26/17 02/26/17 00:07 05:14 12:07 WBC RBC Hgb Hct MCV MCH MCHC RDW Plt Count Lymph % (Auto) [place] % (Auto) Lymph # [place] # Baso # Seg Neutrophils % Seg Neuts % (Manual) Lymphocytes % (Manual) Monocytes % (Manual) Eosinophils % (Manual) Basophils % (Manual) Nucleated RBC % Seg Neutrophils # Seg Neutrophils # Man Lymphocytes # (Manual) Monocytes # (Manual) Eosinophils # (Manual) Basophils # (Manual) PT INR Fibrinogen dRVVT Confirm Interp Factor V Activity POC ABG pH POC ABG pCO2 POC ABG pO2 ABG pO2 ABG HCO3 ABG Base Excess ABG Hemoglobin Oxyhemoglobin Sodium Potassium Chloride Carbon Dioxide BUN Creatinine Glucose POC Glucose 136 H 142 H 132 H Lactic Acid Calcium Ionized Calcium Phosphorus Magnesium Direct Bilirubin AST ALT Alkaline Phosphatase Lactate Dehydrogenase Troponin T C-Reactive Protein Total Protein Albumin Prealbumin Triglycerides Cholesterol LDL Cholesterol Direct HDL Cholesterol 25-OH Vitamin D Total PTH Intact Urine pH Urine WBC (Auto) Urine Creatinine Urine Total Protein Fluid Total Protein Vancomycin Trough Rheumatoid Factor Complement C4 Miscellaneous Test Crossmatch 02/26/17 02/26/17 02/27/17 18:35 23:54 06:25 WBC RBC Hgb Hct MCV MCH MCHC RDW Plt Count Lymph % (Auto) [place] % (Auto) Lymph # [place] # Baso # Seg Neutrophils % Seg Neuts % (Manual) Lymphocytes % (Manual) Monocytes % (Manual) Eosinophils % (Manual) Basophils % (Manual) Nucleated RBC % Seg Neutrophils # Seg Neutrophils # Man Lymphocytes # (Manual) Monocytes # (Manual) Eosinophils # (Manual) Basophils # (Manual) PT INR Fibrinogen dRVVT Confirm Interp Factor V Activity POC ABG pH POC ABG pCO2 POC ABG pO2 ABG pO2 ABG HCO3 ABG Base Excess ABG Hemoglobin Oxyhemoglobin Sodium Potassium Chloride Carbon Dioxide BUN Creatinine Glucose POC Glucose 155 H 150 H 138 H Lactic Acid Calcium Ionized Calcium Phosphorus Magnesium Direct Bilirubin AST ALT Alkaline Phosphatase Lactate Dehydrogenase Troponin T C-Reactive Protein Total Protein Albumin Prealbumin Triglycerides Cholesterol LDL Cholesterol Direct HDL Cholesterol 25-OH Vitamin D Total PTH Intact Urine pH Urine WBC (Auto) Urine Creatinine Urine Total Protein Fluid Total Protein Vancomycin Trough Rheumatoid Factor Complement C4 Miscellaneous Test Crossmatch 02/27/17 02/27/17 02/27/17 08:50 11:50 17:38 WBC RBC Hgb Hct MCV MCH MCHC RDW Plt Count Lymph % (Auto) [place] % (Auto) Lymph # [place] # Baso # Seg Neutrophils % Seg Neuts % (Manual) Lymphocytes % (Manual) Monocytes % (Manual) Eosinophils % (Manual) Basophils % (Manual) Nucleated RBC % Seg Neutrophils # Seg Neutrophils # Man Lymphocytes # (Manual) Monocytes # (Manual) Eosinophils # (Manual) Basophils # (Manual) PT INR Fibrinogen dRVVT Confirm Interp Factor V Activity POC ABG pH POC ABG pCO2 POC ABG pO2 ABG pO2 ABG HCO3 ABG Base Excess ABG Hemoglobin Oxyhemoglobin Sodium Potassium 3.2 L Chloride Carbon Dioxide BUN 95 H Creatinine 2.7 H Glucose 179 H POC Glucose 150 H 133 H Lactic Acid Calcium Ionized Calcium Phosphorus Magnesium Direct Bilirubin AST ALT Alkaline Phosphatase Lactate Dehydrogenase Troponin T C-Reactive Protein Total Protein Albumin Prealbumin Triglycerides Cholesterol LDL Cholesterol Direct HDL Cholesterol 25-OH Vitamin D Total PTH Intact Urine pH Urine WBC (Auto) Urine Creatinine Urine Total Protein Fluid Total Protein Vancomycin Trough Rheumatoid Factor Complement C4 Miscellaneous Test Crossmatch 02/27/17 02/28/17 02/28/17 23:55 05:23 06:10 WBC RBC Hgb Hct MCV MCH MCHC RDW Plt Count Lymph % (Auto) [place] % (Auto) Lymph # [place] # Baso # Seg Neutrophils % Seg Neuts % (Manual) Lymphocytes % (Manual) Monocytes % (Manual) Eosinophils % (Manual) Basophils % (Manual) Nucleated RBC % Seg Neutrophils # Seg Neutrophils # Man Lymphocytes # (Manual) Monocytes # (Manual) Eosinophils # (Manual) Basophils # (Manual) PT INR Fibrinogen dRVVT Confirm Interp Factor V Activity POC ABG pH POC ABG pCO2 POC ABG pO2 ABG pO2 ABG HCO3 ABG Base Excess ABG Hemoglobin Oxyhemoglobin Sodium 134 L Potassium 3.0 L Chloride 94.9 L Carbon Dioxide BUN 53 H Creatinine 1.9 H Glucose 138 H POC Glucose 134 H 164 H Lactic Acid Calcium Ionized Calcium Phosphorus 2.00 L D Magnesium Direct Bilirubin AST ALT Alkaline Phosphatase Lactate Dehydrogenase Troponin T C-Reactive Protein Total Protein Albumin Prealbumin Triglycerides Cholesterol LDL Cholesterol Direct HDL Cholesterol 25-OH Vitamin D Total PTH Intact Urine pH Urine WBC (Auto) Urine Creatinine Urine Total Protein Fluid Total Protein Vancomycin Trough Rheumatoid Factor Complement C4 Miscellaneous Test Crossmatch 02/28/17 02/28/17 02/28/17 12:18 17:54 23:47 WBC RBC Hgb Hct MCV MCH MCHC RDW Plt Count Lymph % (Auto) [place] % (Auto) Lymph # [place] # Baso # Seg Neutrophils % Seg Neuts % (Manual) Lymphocytes % (Manual) Monocytes % (Manual) Eosinophils % (Manual) Basophils % (Manual) Nucleated RBC % Seg Neutrophils # Seg Neutrophils # Man Lymphocytes # (Manual) Monocytes # (Manual) Eosinophils # (Manual) Basophils # (Manual) PT INR Fibrinogen dRVVT Confirm Interp Factor V Activity POC ABG pH POC ABG pCO2 POC ABG pO2 ABG pO2 ABG HCO3 ABG Base Excess ABG Hemoglobin Oxyhemoglobin Sodium Potassium Chloride Carbon Dioxide BUN Creatinine Glucose POC Glucose 135 H 140 H 144 H Lactic Acid Calcium Ionized Calcium Phosphorus Magnesium Direct Bilirubin AST ALT Alkaline Phosphatase Lactate Dehydrogenase Troponin T C-Reactive Protein Total Protein Albumin Prealbumin Triglycerides Cholesterol LDL Cholesterol Direct HDL Cholesterol 25-OH Vitamin D Total PTH Intact Urine pH Urine WBC (Auto) Urine Creatinine Urine Total Protein Fluid Total Protein Vancomycin Trough Rheumatoid Factor Complement C4 Miscellaneous Test Crossmatch 03/01/17 03/01/17 03/01/17 04:00 12:02 17:13 WBC RBC Hgb Hct MCV MCH MCHC RDW Plt Count Lymph % (Auto) [place] % (Auto) Lymph # [place] # Baso # Seg Neutrophils % Seg Neuts % (Manual) Lymphocytes % (Manual) Monocytes % (Manual) Eosinophils % (Manual) Basophils % (Manual) Nucleated RBC % Seg Neutrophils # Seg Neutrophils # Man Lymphocytes # (Manual) Monocytes # (Manual) Eosinophils # (Manual) Basophils # (Manual) PT INR Fibrinogen dRVVT Confirm Interp Factor V Activity POC ABG pH POC ABG pCO2 POC ABG pO2 ABG pO2 ABG HCO3 ABG Base Excess ABG Hemoglobin Oxyhemoglobin Sodium Potassium 3.0 L Chloride 97.0 L Carbon Dioxide BUN 81 H Creatinine 2.6 H Glucose 121 H POC Glucose 165 H 126 H Lactic Acid Calcium Ionized Calcium Phosphorus Magnesium Direct Bilirubin AST ALT Alkaline Phosphatase Lactate Dehydrogenase Troponin T C-Reactive Protein Total Protein Albumin Prealbumin Triglycerides Cholesterol LDL Cholesterol Direct HDL Cholesterol 25-OH Vitamin D Total PTH Intact Urine pH Urine WBC (Auto) Urine Creatinine Urine Total Protein Fluid Total Protein Vancomycin Trough Rheumatoid Factor Complement C4 Miscellaneous Test Crossmatch 03/02/17 03/02/17 03/02/17 00:10 03:05 05:20 WBC RBC Hgb Hct MCV MCH MCHC RDW Plt Count Lymph % (Auto) [place] % (Auto) Lymph # [place] # Baso # Seg Neutrophils % Seg Neuts % (Manual) Lymphocytes % (Manual) Monocytes % (Manual) Eosinophils % (Manual) Basophils % (Manual) Nucleated RBC % Seg Neutrophils # Seg Neutrophils # Man Lymphocytes # (Manual) Monocytes # (Manual) Eosinophils # (Manual) Basophils # (Manual) PT INR Fibrinogen dRVVT Confirm Interp Factor V Activity POC ABG pH POC ABG pCO2 POC ABG pO2 ABG pO2 ABG HCO3 ABG Base Excess ABG Hemoglobin Oxyhemoglobin Sodium Potassium 3.0 L Chloride Carbon Dioxide BUN 41 H Creatinine 1.6 H Glucose 130 H POC Glucose 129 H 173 H Lactic Acid Calcium Ionized Calcium Phosphorus 1.70 L D Magnesium 1.40 L Direct Bilirubin AST ALT Alkaline Phosphatase Lactate Dehydrogenase Troponin T C-Reactive Protein Total Protein Albumin Prealbumin Triglycerides Cholesterol LDL Cholesterol Direct HDL Cholesterol 25-OH Vitamin D Total PTH Intact Urine pH Urine WBC (Auto) Urine Creatinine Urine Total Protein Fluid Total Protein Vancomycin Trough Rheumatoid Factor Complement C4 Miscellaneous Test Crossmatch 03/02/17 03/02/17 03/02/17 11:49 16:38 23:46 WBC RBC Hgb Hct MCV MCH MCHC RDW Plt Count Lymph % (Auto) [place] % (Auto) Lymph # [place] # Baso # Seg Neutrophils % Seg Neuts % (Manual) Lymphocytes % (Manual) Monocytes % (Manual) Eosinophils % (Manual) Basophils % (Manual) Nucleated RBC % Seg Neutrophils # Seg Neutrophils # Man Lymphocytes # (Manual) Monocytes # (Manual) Eosinophils # (Manual) Basophils # (Manual) PT INR Fibrinogen dRVVT Confirm Interp Factor V Activity POC ABG pH POC ABG pCO2 POC ABG pO2 ABG pO2 ABG HCO3 ABG Base Excess ABG Hemoglobin Oxyhemoglobin Sodium Potassium Chloride Carbon Dioxide BUN Creatinine Glucose POC Glucose 129 H 141 H 119 H Lactic Acid Calcium Ionized Calcium Phosphorus Magnesium Direct Bilirubin AST ALT Alkaline Phosphatase Lactate Dehydrogenase Troponin T C-Reactive Protein Total Protein Albumin Prealbumin Triglycerides Cholesterol LDL Cholesterol Direct HDL Cholesterol 25-OH Vitamin D Total PTH Intact Urine pH Urine WBC (Auto) Urine Creatinine Urine Total Protein Fluid Total Protein Vancomycin Trough Rheumatoid Factor Complement C4 Miscellaneous Test Crossmatch 03/03/17 03/03/17 03/03/17 04:00 11:59 18:08 WBC RBC Hgb Hct MCV MCH MCHC RDW Plt Count Lymph % (Auto) [place] % (Auto) Lymph # [place] # Baso # Seg Neutrophils % Seg Neuts % (Manual) Lymphocytes % (Manual) Monocytes % (Manual) Eosinophils % (Manual) Basophils % (Manual) Nucleated RBC % Seg Neutrophils # Seg Neutrophils # Man Lymphocytes # (Manual) Monocytes # (Manual) Eosinophils # (Manual) Basophils # (Manual) PT INR Fibrinogen dRVVT Confirm Interp Factor V Activity POC ABG pH POC ABG pCO2 POC ABG pO2 ABG pO2 ABG HCO3 ABG Base Excess ABG Hemoglobin Oxyhemoglobin Sodium Potassium Chloride Carbon Dioxide BUN 70 H Creatinine 2.3 H Glucose POC Glucose 125 H 131 H Lactic Acid Calcium Ionized Calcium Phosphorus Magnesium Direct Bilirubin AST ALT Alkaline Phosphatase Lactate Dehydrogenase Troponin T C-Reactive Protein Total Protein Albumin Prealbumin Triglycerides Cholesterol LDL Cholesterol Direct HDL Cholesterol 25-OH Vitamin D Total PTH Intact Urine pH Urine WBC (Auto) Urine Creatinine Urine Total Protein Fluid Total Protein Vancomycin Trough Rheumatoid Factor Complement C4 Miscellaneous Test Crossmatch 03/03/17 03/03/17 03/04/17 20:17 23:43 05:21 WBC RBC Hgb Hct MCV MCH MCHC RDW Plt Count Lymph % (Auto) [place] % (Auto) Lymph # [place] # Baso # Seg Neutrophils % Seg Neuts % (Manual) Lymphocytes % (Manual) Monocytes % (Manual) Eosinophils % (Manual) Basophils % (Manual) Nucleated RBC % Seg Neutrophils # Seg Neutrophils # Man Lymphocytes # (Manual) Monocytes # (Manual) Eosinophils # (Manual) Basophils # (Manual) PT INR Fibrinogen dRVVT Confirm Interp Factor V Activity POC ABG pH 7.518 H POC ABG pCO2 28.8 L POC ABG pO2 61 L ABG pO2 ABG HCO3 ABG Base Excess ABG Hemoglobin Oxyhemoglobin Sodium Potassium Chloride Carbon Dioxide BUN Creatinine Glucose POC Glucose 122 H 130 H Lactic Acid Calcium Ionized Calcium Phosphorus Magnesium Direct Bilirubin AST ALT Alkaline Phosphatase Lactate Dehydrogenase Troponin T C-Reactive Protein Total Protein Albumin Prealbumin Triglycerides Cholesterol LDL Cholesterol Direct HDL Cholesterol 25-OH Vitamin D Total PTH Intact Urine pH Urine WBC (Auto) Urine Creatinine Urine Total Protein Fluid Total Protein Vancomycin Trough Rheumatoid Factor Complement C4 Miscellaneous Test Crossmatch 03/04/17 03/05/17 03/06/17 06:10 06:15 03:52 WBC RBC Hgb Hct MCV MCH MCHC RDW Plt Count Lymph % (Auto) [place] % (Auto) Lymph # [place] # Baso # Seg Neutrophils % Seg Neuts % (Manual) Lymphocytes % (Manual) Monocytes % (Manual) Eosinophils % (Manual) Basophils % (Manual) Nucleated RBC % Seg Neutrophils # Seg Neutrophils # Man Lymphocytes # (Manual) Monocytes # (Manual) Eosinophils # (Manual) Basophils # (Manual) PT INR Fibrinogen dRVVT Confirm Interp Factor V Activity POC ABG pH POC ABG pCO2 POC ABG pO2 ABG pO2 ABG HCO3 ABG Base Excess ABG Hemoglobin Oxyhemoglobin Sodium 135 L 136 L Potassium 5.2 H 5.9 H Chloride 95.8 L 97.7 L 96.0 L Carbon Dioxide 21 L 21 L BUN 40 H 56 H 70 H Creatinine 1.7 H 2.4 H 3.0 H Glucose 118 H POC Glucose Lactic Acid Calcium Ionized Calcium Phosphorus 4.80 H D 6.00 H D Magnesium 2.60 H Direct Bilirubin AST ALT Alkaline Phosphatase 165 H Lactate Dehydrogenase Troponin T C-Reactive Protein Total Protein Albumin 1.5 L Prealbumin Triglycerides Cholesterol LDL Cholesterol Direct HDL Cholesterol 25-OH Vitamin D Total PTH Intact Urine pH Urine WBC (Auto) Urine Creatinine Urine Total Protein Fluid Total Protein Vancomycin Trough Rheumatoid Factor Complement C4 Miscellaneous Test Crossmatch 03/06/17 03/06/17 03/06/17 11:19 18:40 23:39 WBC RBC Hgb Hct MCV MCH MCHC RDW Plt Count Lymph % (Auto) [place] % (Auto) Lymph # [place] # Baso # Seg Neutrophils % Seg Neuts % (Manual) Lymphocytes % (Manual) Monocytes % (Manual) Eosinophils % (Manual) Basophils % (Manual) Nucleated RBC % Seg Neutrophils # Seg Neutrophils # Man Lymphocytes # (Manual) Monocytes # (Manual) Eosinophils # (Manual) Basophils # (Manual) PT INR Fibrinogen dRVVT Confirm Interp Factor V Activity POC ABG pH POC ABG pCO2 POC ABG pO2 ABG pO2 ABG HCO3 ABG Base Excess ABG Hemoglobin Oxyhemoglobin Sodium Potassium Chloride Carbon Dioxide BUN Creatinine Glucose POC Glucose 108 H 110 H 156 H Lactic Acid Calcium Ionized Calcium Phosphorus Magnesium Direct Bilirubin AST ALT Alkaline Phosphatase Lactate Dehydrogenase Troponin T C-Reactive Protein Total Protein Albumin Prealbumin Triglycerides Cholesterol LDL Cholesterol Direct HDL Cholesterol 25-OH Vitamin D Total PTH Intact Urine pH Urine WBC (Auto) Urine Creatinine Urine Total Protein Fluid Total Protein Vancomycin Trough Rheumatoid Factor Complement C4 Miscellaneous Test Crossmatch 03/07/17 03/07/17 03/07/17 06:04 11:56 23:31 WBC RBC Hgb Hct MCV MCH MCHC RDW Plt Count Lymph % (Auto) [place] % (Auto) Lymph # [place] # Baso # Seg Neutrophils % Seg Neuts % (Manual) Lymphocytes % (Manual) Monocytes % (Manual) Eosinophils % (Manual) Basophils % (Manual) Nucleated RBC % Seg Neutrophils # Seg Neutrophils # Man Lymphocytes # (Manual) Monocytes # (Manual) Eosinophils # (Manual) Basophils # (Manual) PT INR Fibrinogen dRVVT Confirm Interp Factor V Activity POC ABG pH POC ABG pCO2 POC ABG pO2 ABG pO2 ABG HCO3 ABG Base Excess ABG Hemoglobin Oxyhemoglobin Sodium Potassium Chloride 97.5 L Carbon Dioxide BUN 28 H Creatinine 1.5 H Glucose POC Glucose 106 H 131 H Lactic Acid Calcium 7.9 L Ionized Calcium Phosphorus Magnesium Direct Bilirubin AST ALT Alkaline Phosphatase Lactate Dehydrogenase Troponin T C-Reactive Protein Total Protein Albumin Prealbumin Triglycerides Cholesterol LDL Cholesterol Direct HDL Cholesterol 25-OH Vitamin D Total PTH Intact Urine pH Urine WBC (Auto) Urine Creatinine Urine Total Protein Fluid Total Protein Vancomycin Trough Rheumatoid Factor Complement C4 Miscellaneous Test Crossmatch 03/08/17 03/08/17 03/08/17 05:15 05:38 11:50 WBC RBC Hgb Hct MCV MCH MCHC RDW Plt Count Lymph % (Auto) [place] % (Auto) Lymph # [place] # Baso # Seg Neutrophils % Seg Neuts % (Manual) Lymphocytes % (Manual) Monocytes % (Manual) Eosinophils % (Manual) Basophils % (Manual) Nucleated RBC % Seg Neutrophils # Seg Neutrophils # Man Lymphocytes # (Manual) Monocytes # (Manual) Eosinophils # (Manual) Basophils # (Manual) PT INR Fibrinogen dRVVT Confirm Interp Factor V Activity POC ABG pH POC ABG pCO2 POC ABG pO2 ABG pO2 ABG HCO3 ABG Base Excess ABG Hemoglobin Oxyhemoglobin Sodium 135 L Potassium Chloride 96.6 L Carbon Dioxide 20 L BUN 46 H Creatinine 2.3 H D Glucose 117 H POC Glucose 156 H 131 H Lactic Acid Calcium Ionized Calcium Phosphorus Magnesium Direct Bilirubin AST ALT Alkaline Phosphatase Lactate Dehydrogenase Troponin T C-Reactive Protein Total Protein Albumin Prealbumin Triglycerides Cholesterol LDL Cholesterol Direct HDL Cholesterol 25-OH Vitamin D Total PTH Intact Urine pH Urine WBC (Auto) Urine Creatinine Urine Total Protein Fluid Total Protein Vancomycin Trough Rheumatoid Factor Complement C4 Miscellaneous Test Crossmatch 03/08/17 03/09/17 03/09/17 23:34 04:42 05:20 WBC RBC Hgb Hct MCV MCH MCHC RDW Plt Count Lymph % (Auto) [place] % (Auto) Lymph # [place] # Baso # Seg Neutrophils % Seg Neuts % (Manual) Lymphocytes % (Manual) Monocytes % (Manual) Eosinophils % (Manual) Basophils % (Manual) Nucleated RBC % Seg Neutrophils # Seg Neutrophils # Man Lymphocytes # (Manual) Monocytes # (Manual) Eosinophils # (Manual) Basophils # (Manual) PT INR Fibrinogen dRVVT Confirm Interp Factor V Activity POC ABG pH POC ABG pCO2 POC ABG pO2 ABG pO2 ABG HCO3 ABG Base Excess ABG Hemoglobin Oxyhemoglobin Sodium Potassium 3.2 L Chloride Carbon Dioxide BUN 30 H Creatinine 1.7 H Glucose 112 H POC Glucose 125 H 128 H Lactic Acid Calcium 8.2 L Ionized Calcium Phosphorus 1.80 L D Magnesium 1.40 L Direct Bilirubin AST ALT Alkaline Phosphatase Lactate Dehydrogenase Troponin T C-Reactive Protein Total Protein Albumin Prealbumin Triglycerides Cholesterol LDL Cholesterol Direct HDL Cholesterol 25-OH Vitamin D Total PTH Intact Urine pH Urine WBC (Auto) Urine Creatinine Urine Total Protein Fluid Total Protein Vancomycin Trough Rheumatoid Factor Complement C4 Miscellaneous Test Crossmatch 03/09/17 03/09/17 03/10/17 11:48 17:38 00:08 WBC RBC Hgb Hct MCV MCH MCHC RDW Plt Count Lymph % (Auto) [place] % (Auto) Lymph # [place] # Baso # Seg Neutrophils % Seg Neuts % (Manual) Lymphocytes % (Manual) Monocytes % (Manual) Eosinophils % (Manual) Basophils % (Manual) Nucleated RBC % Seg Neutrophils # Seg Neutrophils # Man Lymphocytes # (Manual) Monocytes # (Manual) Eosinophils # (Manual) Basophils # (Manual) PT INR Fibrinogen dRVVT Confirm Interp Factor V Activity POC ABG pH POC ABG pCO2 POC ABG pO2 ABG pO2 ABG HCO3 ABG Base Excess ABG Hemoglobin Oxyhemoglobin Sodium Potassium Chloride Carbon Dioxide BUN Creatinine Glucose POC Glucose 146 H 140 H 137 H Lactic Acid Calcium Ionized Calcium Phosphorus Magnesium Direct Bilirubin AST ALT Alkaline Phosphatase Lactate Dehydrogenase Troponin T C-Reactive Protein Total Protein Albumin Prealbumin Triglycerides Cholesterol LDL Cholesterol Direct HDL Cholesterol 25-OH Vitamin D Total PTH Intact Urine pH Urine WBC (Auto) Urine Creatinine Urine Total Protein Fluid Total Protein Vancomycin Trough Rheumatoid Factor Complement C4 Miscellaneous Test Crossmatch 03/10/17 03/10/17 03/10/17 04:46 06:37 11:22 WBC RBC Hgb Hct MCV MCH MCHC RDW Plt Count Lymph % (Auto) [place] % (Auto) Lymph # [place] # Baso # Seg Neutrophils % Seg Neuts % (Manual) Lymphocytes % (Manual) Monocytes % (Manual) Eosinophils % (Manual) Basophils % (Manual) Nucleated RBC % Seg Neutrophils # Seg Neutrophils # Man Lymphocytes # (Manual) Monocytes # (Manual) Eosinophils # (Manual) Basophils # (Manual) PT INR Fibrinogen dRVVT Confirm Interp Factor V Activity POC ABG pH POC ABG pCO2 POC ABG pO2 ABG pO2 ABG HCO3 ABG Base Excess ABG Hemoglobin Oxyhemoglobin Sodium 135 L Potassium Chloride 96.3 L Carbon Dioxide 21 L BUN 46 H Creatinine 2.2 H Glucose 106 H POC Glucose 115 H 151 H Lactic Acid Calcium 8.2 L Ionized Calcium Phosphorus Magnesium Direct Bilirubin AST ALT Alkaline Phosphatase Lactate Dehydrogenase Troponin T C-Reactive Protein Total Protein Albumin Prealbumin Triglycerides Cholesterol LDL Cholesterol Direct HDL Cholesterol 25-OH Vitamin D Total PTH Intact Urine pH Urine WBC (Auto) Urine Creatinine Urine Total Protein Fluid Total Protein Vancomycin Trough Rheumatoid Factor Complement C4 Miscellaneous Test Crossmatch 03/10/17 03/10/17 03/11/17 17:53 23:46 05:19 WBC RBC Hgb Hct MCV MCH MCHC RDW Plt Count Lymph % (Auto) [place] % (Auto) Lymph # [place] # Baso # Seg Neutrophils % Seg Neuts % (Manual) Lymphocytes % (Manual) Monocytes % (Manual) Eosinophils % (Manual) Basophils % (Manual) Nucleated RBC % Seg Neutrophils # Seg Neutrophils # Man Lymphocytes # (Manual) Monocytes # (Manual) Eosinophils # (Manual) Basophils # (Manual) PT INR Fibrinogen dRVVT Confirm Interp Factor V Activity POC ABG pH POC ABG pCO2 POC ABG pO2 ABG pO2 ABG HCO3 ABG Base Excess ABG Hemoglobin Oxyhemoglobin Sodium Potassium Chloride Carbon Dioxide BUN Creatinine Glucose POC Glucose 137 H 131 H 108 H Lactic Acid Calcium Ionized Calcium Phosphorus Magnesium Direct Bilirubin AST ALT Alkaline Phosphatase Lactate Dehydrogenase Troponin T C-Reactive Protein Total Protein Albumin Prealbumin Triglycerides Cholesterol LDL Cholesterol Direct HDL Cholesterol 25-OH Vitamin D Total PTH Intact Urine pH Urine WBC (Auto) Urine Creatinine Urine Total Protein Fluid Total Protein Vancomycin Trough Rheumatoid Factor Complement C4 Miscellaneous Test Crossmatch 03/11/17 03/11/17 03/11/17 11:37 18:13 23:55 WBC RBC Hgb Hct MCV MCH MCHC RDW Plt Count Lymph % (Auto) [place] % (Auto) Lymph # [place] # Baso # Seg Neutrophils % Seg Neuts % (Manual) Lymphocytes % (Manual) Monocytes % (Manual) Eosinophils % (Manual) Basophils % (Manual) Nucleated RBC % Seg Neutrophils # Seg Neutrophils # Man Lymphocytes # (Manual) Monocytes # (Manual) Eosinophils # (Manual) Basophils # (Manual) PT INR Fibrinogen dRVVT Confirm Interp Factor V Activity POC ABG pH POC ABG pCO2 POC ABG pO2 ABG pO2 ABG HCO3 ABG Base Excess ABG Hemoglobin Oxyhemoglobin Sodium Potassium Chloride Carbon Dioxide BUN Creatinine Glucose POC Glucose 113 H 126 H 134 H Lactic Acid Calcium Ionized Calcium Phosphorus Magnesium Direct Bilirubin AST ALT Alkaline Phosphatase Lactate Dehydrogenase Troponin T C-Reactive Protein Total Protein Albumin Prealbumin Triglycerides Cholesterol LDL Cholesterol Direct HDL Cholesterol 25-OH Vitamin D Total PTH Intact Urine pH Urine WBC (Auto) Urine Creatinine Urine Total Protein Fluid Total Protein Vancomycin Trough Rheumatoid Factor Complement C4 Miscellaneous Test Crossmatch 03/12/17 03/12/17 03/12/17 05:06 11:30 17:39 WBC RBC Hgb Hct MCV MCH MCHC RDW Plt Count Lymph % (Auto) [place] % (Auto) Lymph # [place] # Baso # Seg Neutrophils % Seg Neuts % (Manual) Lymphocytes % (Manual) Monocytes % (Manual) Eosinophils % (Manual) Basophils % (Manual) Nucleated RBC % Seg Neutrophils # Seg Neutrophils # Man Lymphocytes # (Manual) Monocytes # (Manual) Eosinophils # (Manual) Basophils # (Manual) PT INR Fibrinogen dRVVT Confirm Interp Factor V Activity POC ABG pH POC ABG pCO2 POC ABG pO2 ABG pO2 ABG HCO3 ABG Base Excess ABG Hemoglobin Oxyhemoglobin Sodium Potassium Chloride Carbon Dioxide BUN Creatinine Glucose POC Glucose 127 H 144 H 151 H Lactic Acid Calcium Ionized Calcium Phosphorus Magnesium Direct Bilirubin AST ALT Alkaline Phosphatase Lactate Dehydrogenase Troponin T C-Reactive Protein Total Protein Albumin Prealbumin Triglycerides Cholesterol LDL Cholesterol Direct HDL Cholesterol 25-OH Vitamin D Total PTH Intact Urine pH Urine WBC (Auto) Urine Creatinine Urine Total Protein Fluid Total Protein Vancomycin Trough Rheumatoid Factor Complement C4 Miscellaneous Test Crossmatch 03/13/17 03/13/17 03/13/17 05:01 05:39 11:29 WBC RBC Hgb Hct MCV MCH MCHC RDW Plt Count Lymph % (Auto) [place] % (Auto) Lymph # [place] # Baso # Seg Neutrophils % Seg Neuts % (Manual) Lymphocytes % (Manual) Monocytes % (Manual) Eosinophils % (Manual) Basophils % (Manual) Nucleated RBC % Seg Neutrophils # Seg Neutrophils # Man Lymphocytes # (Manual) Monocytes # (Manual) Eosinophils # (Manual) Basophils # (Manual) PT INR Fibrinogen dRVVT Confirm Interp Factor V Activity POC ABG pH POC ABG pCO2 POC ABG pO2 ABG pO2 ABG HCO3 ABG Base Excess ABG Hemoglobin Oxyhemoglobin Sodium 136 L Potassium 3.4 L Chloride 94.6 L Carbon Dioxide BUN 68 H Creatinine 2.9 H Glucose 105 H POC Glucose 123 H 128 H Lactic Acid Calcium Ionized Calcium Phosphorus Magnesium Direct Bilirubin AST ALT Alkaline Phosphatase Lactate Dehydrogenase Troponin T C-Reactive Protein Total Protein Albumin Prealbumin Triglycerides Cholesterol LDL Cholesterol Direct HDL Cholesterol 25-OH Vitamin D Total PTH Intact Urine pH Urine WBC (Auto) Urine Creatinine Urine Total Protein Fluid Total Protein Vancomycin Trough Rheumatoid Factor Complement C4 Miscellaneous Test Crossmatch 03/13/17 03/13/17 03/14/17 17:39 21:53 03:30 WBC RBC Hgb Hct MCV MCH MCHC RDW Plt Count Lymph % (Auto) [place] % (Auto) Lymph # [place] # Baso # Seg Neutrophils % Seg Neuts % (Manual) Lymphocytes % (Manual) Monocytes % (Manual) Eosinophils % (Manual) Basophils % (Manual) Nucleated RBC % Seg Neutrophils # Seg Neutrophils # Man Lymphocytes # (Manual) Monocytes # (Manual) Eosinophils # (Manual) Basophils # (Manual) PT INR Fibrinogen dRVVT Confirm Interp Factor V Activity POC ABG pH POC ABG pCO2 POC ABG pO2 ABG pO2 ABG HCO3 ABG Base Excess ABG Hemoglobin Oxyhemoglobin Sodium 133 L Potassium Chloride 95.7 L Carbon Dioxide 21 L BUN 37 H Creatinine 1.8 H Glucose 138 H POC Glucose 160 H 147 H Lactic Acid Calcium 8.1 L Ionized Calcium Phosphorus 2.10 L D Magnesium 1.60 L Direct Bilirubin AST ALT Alkaline Phosphatase Lactate Dehydrogenase Troponin T C-Reactive Protein Total Protein Albumin Prealbumin Triglycerides Cholesterol LDL Cholesterol Direct HDL Cholesterol 25-OH Vitamin D Total PTH Intact Urine pH Urine WBC (Auto) Urine Creatinine Urine Total Protein Fluid Total Protein Vancomycin Trough Rheumatoid Factor Complement C4 Miscellaneous Test Crossmatch 03/14/17 03/14/17 03/14/17 05:19 11:08 12:51 WBC RBC Hgb Hct MCV MCH MCHC RDW Plt Count Lymph % (Auto) [place] % (Auto) Lymph # [place] # Baso # Seg Neutrophils % Seg Neuts % (Manual) Lymphocytes % (Manual) Monocytes % (Manual) Eosinophils % (Manual) Basophils % (Manual) Nucleated RBC % Seg Neutrophils # Seg Neutrophils # Man Lymphocytes # (Manual) Monocytes # (Manual) Eosinophils # (Manual) Basophils # (Manual) PT INR Fibrinogen dRVVT Confirm Interp Factor V Activity POC ABG pH POC ABG pCO2 POC ABG pO2 ABG pO2 ABG HCO3 ABG Base Excess ABG Hemoglobin Oxyhemoglobin Sodium Potassium Chloride Carbon Dioxide BUN Creatinine Glucose POC Glucose 159 H 144 H Lactic Acid Calcium Ionized Calcium Phosphorus Magnesium Direct Bilirubin AST ALT Alkaline Phosphatase Lactate Dehydrogenase Troponin T C-Reactive Protein 19.50 H Total Protein Albumin Prealbumin Triglycerides Cholesterol LDL Cholesterol Direct HDL Cholesterol 25-OH Vitamin D Total PTH Intact Urine pH Urine WBC (Auto) Urine Creatinine Urine Total Protein Fluid Total Protein Vancomycin Trough Rheumatoid Factor Complement C4 Miscellaneous Test Crossmatch 03/14/17 03/14/17 03/14/17 14:30 16:50 16:55 WBC 17.6 H RBC 2.18 L Hgb 6.0 L Hct 19.8 L* MCV MCH MCHC RDW 19.9 H Plt Count Lymph % (Auto) [place] % (Auto) Lymph # [place] # Baso # Seg Neutrophils % Seg Neuts % (Manual) Lymphocytes % (Manual) 13.0 L Monocytes % (Manual) 15.0 H Eosinophils % (Manual) Basophils % (Manual) Nucleated RBC % Seg Neutrophils # Seg Neutrophils # Man 12.3 H Lymphocytes # (Manual) Monocytes # (Manual) 2.6 H Eosinophils # (Manual) Basophils # (Manual) PT INR Fibrinogen dRVVT Confirm Interp Factor V Activity POC ABG pH POC ABG pCO2 POC ABG pO2 ABG pO2 ABG HCO3 ABG Base Excess ABG Hemoglobin Oxyhemoglobin Sodium Potassium Chloride Carbon Dioxide BUN Creatinine Glucose POC Glucose 156 H Lactic Acid Calcium Ionized Calcium Phosphorus Magnesium Direct Bilirubin AST ALT Alkaline Phosphatase Lactate Dehydrogenase Troponin T C-Reactive Protein Total Protein Albumin Prealbumin Triglycerides Cholesterol LDL Cholesterol Direct HDL Cholesterol 25-OH Vitamin D Total PTH Intact Urine pH Urine WBC (Auto) Urine Creatinine Urine Total Protein Fluid Total Protein Vancomycin Trough Rheumatoid Factor Complement C4 Miscellaneous Test Crossmatch See Detail 03/14/17 03/15/17 03/15/17 23:31 05:03 05:03 WBC 15.2 H RBC 2.42 L Hgb 6.9 L Hct 22.2 L MCV MCH MCHC RDW 18.4 H Plt Count Lymph % (Auto) [place] % (Auto) Lymph # [place] # Baso # Seg Neutrophils % Seg Neuts % (Manual) Lymphocytes % (Manual) Monocytes % (Manual) Eosinophils % (Manual) Basophils % (Manual) Nucleated RBC % Seg Neutrophils # Seg Neutrophils # Man Lymphocytes # (Manual) Monocytes # (Manual) Eosinophils # (Manual) Basophils # (Manual) PT INR Fibrinogen dRVVT Confirm Interp Factor V Activity POC ABG pH POC ABG pCO2 POC ABG pO2 ABG pO2 ABG HCO3 ABG Base Excess ABG Hemoglobin Oxyhemoglobin Sodium Potassium 3.5 L Chloride Carbon Dioxide BUN 54 H Creatinine 2.6 H Glucose 127 H POC Glucose 176 H Lactic Acid Calcium Ionized Calcium Phosphorus Magnesium Direct Bilirubin AST ALT Alkaline Phosphatase Lactate Dehydrogenase Troponin T C-Reactive Protein Total Protein Albumin Prealbumin Triglycerides Cholesterol LDL Cholesterol Direct HDL Cholesterol 25-OH Vitamin D Total PTH Intact Urine pH Urine WBC (Auto) Urine Creatinine Urine Total Protein Fluid Total Protein Vancomycin Trough Rheumatoid Factor Complement C4 Miscellaneous Test Crossmatch 03/15/17 03/15/17 03/15/17 05:04 12:52 17:46 WBC RBC Hgb Hct MCV MCH MCHC RDW Plt Count Lymph % (Auto) [place] % (Auto) Lymph # [place] # Baso # Seg Neutrophils % Seg Neuts % (Manual) Lymphocytes % (Manual) Monocytes % (Manual) Eosinophils % (Manual) Basophils % (Manual) Nucleated RBC % Seg Neutrophils # Seg Neutrophils # Man Lymphocytes # (Manual) Monocytes # (Manual) Eosinophils # (Manual) Basophils # (Manual) PT INR Fibrinogen dRVVT Confirm Interp Factor V Activity POC ABG pH POC ABG pCO2 POC ABG pO2 ABG pO2 ABG HCO3 ABG Base Excess ABG Hemoglobin Oxyhemoglobin Sodium Potassium Chloride Carbon Dioxide BUN Creatinine Glucose POC Glucose 106 H 141 H 170 H Lactic Acid Calcium Ionized Calcium Phosphorus Magnesium Direct Bilirubin AST ALT Alkaline Phosphatase Lactate Dehydrogenase Troponin T C-Reactive Protein Total Protein Albumin Prealbumin Triglycerides Cholesterol LDL Cholesterol Direct HDL Cholesterol 25-OH Vitamin D Total PTH Intact Urine pH Urine WBC (Auto) Urine Creatinine Urine Total Protein Fluid Total Protein Vancomycin Trough Rheumatoid Factor Complement C4 Miscellaneous Test Crossmatch 03/16/17 03/16/17 03/16/17 00:16 03:35 05:15 WBC RBC Hgb Hct MCV MCH MCHC RDW Plt Count Lymph % (Auto) [place] % (Auto) Lymph # [place] # Baso # Seg Neutrophils % Seg Neuts % (Manual) Lymphocytes % (Manual) Monocytes % (Manual) Eosinophils % (Manual) Basophils % (Manual) Nucleated RBC % Seg Neutrophils # Seg Neutrophils # Man Lymphocytes # (Manual) Monocytes # (Manual) Eosinophils # (Manual) Basophils # (Manual) PT INR Fibrinogen dRVVT Confirm Interp Factor V Activity POC ABG pH POC ABG pCO2 POC ABG pO2 ABG pO2 ABG HCO3 ABG Base Excess ABG Hemoglobin Oxyhemoglobin Sodium Potassium 3.5 L Chloride Carbon Dioxide BUN 26 H Creatinine 1.3 H Glucose 129 H POC Glucose 120 H 140 H Lactic Acid Calcium 7.9 L Ionized Calcium Phosphorus 2.20 L D Magnesium Direct Bilirubin AST ALT Alkaline Phosphatase Lactate Dehydrogenase Troponin T C-Reactive Protein Total Protein Albumin Prealbumin Triglycerides Cholesterol LDL Cholesterol Direct HDL Cholesterol 25-OH Vitamin D Total PTH Intact Urine pH Urine WBC (Auto) Urine Creatinine Urine Total Protein Fluid Total Protein Vancomycin Trough Rheumatoid Factor Complement C4 Miscellaneous Test Crossmatch 03/16/17 03/16/17 03/17/17 12:26 18:16 00:00 WBC RBC Hgb Hct MCV MCH MCHC RDW Plt Count Lymph % (Auto) [place] % (Auto) Lymph # [place] # Baso # Seg Neutrophils % Seg Neuts % (Manual) Lymphocytes % (Manual) Monocytes % (Manual) Eosinophils % (Manual) Basophils % (Manual) Nucleated RBC % Seg Neutrophils # Seg Neutrophils # Man Lymphocytes # (Manual) Monocytes # (Manual) Eosinophils # (Manual) Basophils # (Manual) PT INR Fibrinogen dRVVT Confirm Interp Factor V Activity POC ABG pH POC ABG pCO2 POC ABG pO2 ABG pO2 ABG HCO3 ABG Base Excess ABG Hemoglobin Oxyhemoglobin Sodium Potassium Chloride Carbon Dioxide BUN Creatinine Glucose POC Glucose 133 H 107 H 124 H Lactic Acid Calcium Ionized Calcium Phosphorus Magnesium Direct Bilirubin AST ALT Alkaline Phosphatase Lactate Dehydrogenase Troponin T C-Reactive Protein Total Protein Albumin Prealbumin Triglycerides Cholesterol LDL Cholesterol Direct HDL Cholesterol 25-OH Vitamin D Total PTH Intact Urine pH Urine WBC (Auto) Urine Creatinine Urine Total Protein Fluid Total Protein Vancomycin Trough Rheumatoid Factor Complement C4 Miscellaneous Test Crossmatch 03/17/17 03/17/17 03/17/17 04:00 05:57 12:00 WBC RBC Hgb Hct MCV MCH MCHC RDW Plt Count Lymph % (Auto) [place] % (Auto) Lymph # [place] # Baso # Seg Neutrophils % Seg Neuts % (Manual) Lymphocytes % (Manual) Monocytes % (Manual) Eosinophils % (Manual) Basophils % (Manual) Nucleated RBC % Seg Neutrophils # Seg Neutrophils # Man Lymphocytes # (Manual) Monocytes # (Manual) Eosinophils # (Manual) Basophils # (Manual) PT INR Fibrinogen dRVVT Confirm Interp Factor V Activity POC ABG pH POC ABG pCO2 POC ABG pO2 ABG pO2 ABG HCO3 ABG Base Excess ABG Hemoglobin Oxyhemoglobin Sodium 134 L Potassium Chloride 95.1 L Carbon Dioxide BUN 37 H Creatinine 1.8 H Glucose 115 H POC Glucose 141 H 129 H Lactic Acid Calcium 8.3 L Ionized Calcium Phosphorus 5.50 H D Magnesium Direct Bilirubin AST ALT Alkaline Phosphatase Lactate Dehydrogenase Troponin T C-Reactive Protein Total Protein Albumin Prealbumin Triglycerides Cholesterol LDL Cholesterol Direct HDL Cholesterol 25-OH Vitamin D Total PTH Intact Urine pH Urine WBC (Auto) Urine Creatinine Urine Total Protein Fluid Total Protein Vancomycin Trough Rheumatoid Factor Complement C4 Miscellaneous Test Crossmatch 03/17/17 03/18/17 03/18/17 17:23 00:04 04:00 WBC RBC Hgb Hct MCV MCH MCHC RDW Plt Count Lymph % (Auto) [place] % (Auto) Lymph # [place] # Baso # Seg Neutrophils % Seg Neuts % (Manual) Lymphocytes % (Manual) Monocytes % (Manual) Eosinophils % (Manual) Basophils % (Manual) Nucleated RBC % Seg Neutrophils # Seg Neutrophils # Man Lymphocytes # (Manual) Monocytes # (Manual) Eosinophils # (Manual) Basophils # (Manual) PT INR Fibrinogen dRVVT Confirm Interp Factor V Activity POC ABG pH POC ABG pCO2 POC ABG pO2 ABG pO2 ABG HCO3 ABG Base Excess ABG Hemoglobin Oxyhemoglobin Sodium Potassium Chloride Carbon Dioxide BUN 23 H Creatinine 1.3 H Glucose 122 H POC Glucose 155 H 126 H Lactic Acid Calcium 8.3 L Ionized Calcium Phosphorus Magnesium Direct Bilirubin AST ALT Alkaline Phosphatase Lactate Dehydrogenase Troponin T C-Reactive Protein Total Protein Albumin Prealbumin Triglycerides Cholesterol LDL Cholesterol Direct HDL Cholesterol 25-OH Vitamin D Total PTH Intact Urine pH Urine WBC (Auto) Urine Creatinine Urine Total Protein Fluid Total Protein Vancomycin Trough Rheumatoid Factor Complement C4 Miscellaneous Test Crossmatch 03/18/17 03/18/17 03/18/17 05:47 11:15 18:07 WBC RBC Hgb Hct MCV MCH MCHC RDW Plt Count Lymph % (Auto) [place] % (Auto) Lymph # [place] # Baso # Seg Neutrophils % Seg Neuts % (Manual) Lymphocytes % (Manual) Monocytes % (Manual) Eosinophils % (Manual) Basophils % (Manual) Nucleated RBC % Seg Neutrophils # Seg Neutrophils # Man Lymphocytes # (Manual) Monocytes # (Manual) Eosinophils # (Manual) Basophils # (Manual) PT INR Fibrinogen dRVVT Confirm Interp Factor V Activity POC ABG pH POC ABG pCO2 POC ABG pO2 ABG pO2 ABG HCO3 ABG Base Excess ABG Hemoglobin Oxyhemoglobin Sodium Potassium Chloride Carbon Dioxide BUN Creatinine Glucose POC Glucose 139 H 138 H 134 H Lactic Acid Calcium Ionized Calcium Phosphorus Magnesium Direct Bilirubin AST ALT Alkaline Phosphatase Lactate Dehydrogenase Troponin T C-Reactive Protein Total Protein Albumin Prealbumin Triglycerides Cholesterol LDL Cholesterol Direct HDL Cholesterol 25-OH Vitamin D Total PTH Intact Urine pH Urine WBC (Auto) Urine Creatinine Urine Total Protein Fluid Total Protein Vancomycin Trough Rheumatoid Factor Complement C4 Miscellaneous Test Crossmatch 03/19/17 03/19/17 03/19/17 00:34 06:11 11:15 WBC RBC Hgb Hct MCV MCH MCHC RDW Plt Count Lymph % (Auto) [place] % (Auto) Lymph # [place] # Baso # Seg Neutrophils % Seg Neuts % (Manual) Lymphocytes % (Manual) Monocytes % (Manual) Eosinophils % (Manual) Basophils % (Manual) Nucleated RBC % Seg Neutrophils # Seg Neutrophils # Man Lymphocytes # (Manual) Monocytes # (Manual) Eosinophils # (Manual) Basophils # (Manual) PT INR Fibrinogen dRVVT Confirm Interp Factor V Activity POC ABG pH POC ABG pCO2 POC ABG pO2 ABG pO2 ABG HCO3 ABG Base Excess ABG Hemoglobin Oxyhemoglobin Sodium Potassium Chloride Carbon Dioxide BUN Creatinine Glucose POC Glucose 139 H 146 H 129 H Lactic Acid Calcium Ionized Calcium Phosphorus Magnesium Direct Bilirubin AST ALT Alkaline Phosphatase Lactate Dehydrogenase Troponin T C-Reactive Protein Total Protein Albumin Prealbumin Triglycerides Cholesterol LDL Cholesterol Direct HDL Cholesterol 25-OH Vitamin D Total PTH Intact Urine pH Urine WBC (Auto) Urine Creatinine Urine Total Protein Fluid Total Protein Vancomycin Trough Rheumatoid Factor Complement C4 Miscellaneous Test Crossmatch 03/19/17 03/19/17 03/19/17 17:28 23:23 Unknown WBC RBC Hgb Hct MCV MCH MCHC RDW Plt Count Lymph % (Auto) [place] % (Auto) Lymph # [place] # Baso # Seg Neutrophils % Seg Neuts % (Manual) Lymphocytes % (Manual) Monocytes % (Manual) Eosinophils % (Manual) Basophils % (Manual) Nucleated RBC % Seg Neutrophils # Seg Neutrophils # Man Lymphocytes # (Manual) Monocytes # (Manual) Eosinophils # (Manual) Basophils # (Manual) PT INR Fibrinogen dRVVT Confirm Interp Factor V Activity POC ABG pH POC ABG pCO2 POC ABG pO2 ABG pO2 ABG HCO3 ABG Base Excess ABG Hemoglobin Oxyhemoglobin Sodium Potassium Chloride 96.8 L Carbon Dioxide BUN 34 H Creatinine 1.9 H Glucose 138 H POC Glucose 142 H 144 H Lactic Acid Calcium Ionized Calcium Phosphorus 5.20 H D Magnesium Direct Bilirubin AST ALT Alkaline Phosphatase Lactate Dehydrogenase Troponin T C-Reactive Protein Total Protein Albumin Prealbumin Triglycerides Cholesterol LDL Cholesterol Direct HDL Cholesterol 25-OH Vitamin D Total PTH Intact Urine pH Urine WBC (Auto) Urine Creatinine Urine Total Protein Fluid Total Protein Vancomycin Trough Rheumatoid Factor Complement C4 Miscellaneous Test Crossmatch 03/20/17 03/20/17 03/20/17 13:55 16:00 23:38 WBC 13.8 H RBC 2.21 L Hgb 6.6 L Hct 21.2 L MCV MCH MCHC RDW 19.7 H Plt Count Lymph % (Auto) [place] % (Auto) Lymph # [place] # 1.0 H Baso # Seg Neutrophils % 72.0 H Seg Neuts % (Manual) Lymphocytes % (Manual) Monocytes % (Manual) Eosinophils % (Manual) Basophils % (Manual) Nucleated RBC % Seg Neutrophils # 9.9 H Seg Neutrophils # Man Lymphocytes # (Manual) Monocytes # (Manual) Eosinophils # (Manual) Basophils # (Manual) PT INR Fibrinogen dRVVT Confirm Interp Factor V Activity POC ABG pH POC ABG pCO2 POC ABG pO2 ABG pO2 ABG HCO3 ABG Base Excess ABG Hemoglobin Oxyhemoglobin Sodium Potassium Chloride Carbon Dioxide BUN Creatinine Glucose POC Glucose 163 H Lactic Acid Calcium Ionized Calcium Phosphorus Magnesium Direct Bilirubin AST ALT Alkaline Phosphatase Lactate Dehydrogenase Troponin T C-Reactive Protein Total Protein Albumin Prealbumin Triglycerides Cholesterol LDL Cholesterol Direct HDL Cholesterol 25-OH Vitamin D Total PTH Intact Urine pH Urine WBC (Auto) Urine Creatinine Urine Total Protein Fluid Total Protein Vancomycin Trough Rheumatoid Factor Complement C4 Miscellaneous Test Crossmatch See Detail 03/20/17 03/21/17 03/21/17 Unknown 04:57 05:20 WBC 15.3 H RBC 2.68 L Hgb 8.8 L Hct 24.6 L MCV MCH 33 H MCHC 36 H RDW 19.4 H Plt Count Lymph % (Auto) [place] % (Auto) Lymph # [place] # 1.1 H Baso # Seg Neutrophils % 76.8 H Seg Neuts % (Manual) Lymphocytes % (Manual) Monocytes % (Manual) Eosinophils % (Manual) Basophils % (Manual) Nucleated RBC % Seg Neutrophils # 11.7 H Seg Neutrophils # Man Lymphocytes # (Manual) Monocytes # (Manual) Eosinophils # (Manual) Basophils # (Manual) PT INR Fibrinogen dRVVT Confirm Interp Factor V Activity POC ABG pH POC ABG pCO2 POC ABG pO2 ABG pO2 ABG HCO3 ABG Base Excess ABG Hemoglobin Oxyhemoglobin Sodium Potassium Chloride 97.7 L Carbon Dioxide BUN 43 H Creatinine 2.2 H Glucose POC Glucose 111 H Lactic Acid Calcium Ionized Calcium Phosphorus 5.30 H Magnesium Direct Bilirubin AST ALT 6 L Alkaline Phosphatase Lactate Dehydrogenase Troponin T C-Reactive Protein Total Protein Albumin 0.9 L Prealbumin Triglycerides Cholesterol LDL Cholesterol Direct HDL Cholesterol 25-OH Vitamin D Total PTH Intact Urine pH Urine WBC (Auto) Urine Creatinine Urine Total Protein Fluid Total Protein Vancomycin Trough Rheumatoid Factor Complement C4 Miscellaneous Test Crossmatch 03/21/17 03/22/17 03/22/17 17:18 06:25 12:30 WBC RBC Hgb Hct MCV MCH MCHC RDW Plt Count Lymph % (Auto) [place] % (Auto) Lymph # [place] # Baso # Seg Neutrophils % Seg Neuts % (Manual) Lymphocytes % (Manual) Monocytes % (Manual) Eosinophils % (Manual) Basophils % (Manual) Nucleated RBC % Seg Neutrophils # Seg Neutrophils # Man Lymphocytes # (Manual) Monocytes # (Manual) Eosinophils # (Manual) Basophils # (Manual) PT INR Fibrinogen dRVVT Confirm Interp Factor V Activity POC ABG pH POC ABG pCO2 POC ABG pO2 ABG pO2 ABG HCO3 ABG Base Excess ABG Hemoglobin Oxyhemoglobin Sodium 136 L Potassium Chloride 97.7 L Carbon Dioxide BUN 31 H Creatinine 1.8 H Glucose 102 H POC Glucose 118 H 164 H Lactic Acid Calcium Ionized Calcium Phosphorus Magnesium Direct Bilirubin AST ALT Alkaline Phosphatase Lactate Dehydrogenase Troponin T C-Reactive Protein Total Protein Albumin Prealbumin Triglycerides Cholesterol LDL Cholesterol Direct HDL Cholesterol 25-OH Vitamin D Total PTH Intact Urine pH Urine WBC (Auto) Urine Creatinine Urine Total Protein Fluid Total Protein Vancomycin Trough Rheumatoid Factor Complement C4 Miscellaneous Test Crossmatch 03/23/17 03/23/17 03/23/17 05:30 05:30 11:18 WBC RBC 2.50 L Hgb 8.0 L Hct 24.1 L MCV MCH MCHC RDW 22.2 H Plt Count Lymph % (Auto) [place] % (Auto) Lymph # [place] # Baso # Seg Neutrophils % 72.3 H Seg Neuts % (Manual) Lymphocytes % (Manual) Monocytes % (Manual) Eosinophils % (Manual) Basophils % (Manual) Nucleated RBC % Seg Neutrophils # Seg Neutrophils # Man Lymphocytes # (Manual) Monocytes # (Manual) Eosinophils # (Manual) Basophils # (Manual) PT INR Fibrinogen dRVVT Confirm Interp Factor V Activity POC ABG pH POC ABG pCO2 POC ABG pO2 ABG pO2 ABG HCO3 ABG Base Excess ABG Hemoglobin Oxyhemoglobin Sodium 136 L Potassium Chloride Carbon Dioxide BUN Creatinine 1.4 H Glucose POC Glucose 111 H Lactic Acid Calcium 8.2 L Ionized Calcium Phosphorus 2.10 L D Magnesium 1.60 L Direct Bilirubin AST ALT Alkaline Phosphatase Lactate Dehydrogenase Troponin T C-Reactive Protein Total Protein Albumin Prealbumin Triglycerides Cholesterol LDL Cholesterol Direct HDL Cholesterol 25-OH Vitamin D Total PTH Intact Urine pH Urine WBC (Auto) Urine Creatinine Urine Total Protein Fluid Total Protein Vancomycin Trough Rheumatoid Factor Complement C4 Miscellaneous Test Crossmatch 03/24/17 03/24/17 03/24/17 05:50 11:18 17:43 WBC RBC Hgb Hct MCV MCH MCHC RDW Plt Count Lymph % (Auto) [place] % (Auto) Lymph # [place] # Baso # Seg Neutrophils % Seg Neuts % (Manual) Lymphocytes % (Manual) Monocytes % (Manual) Eosinophils % (Manual) Basophils % (Manual) Nucleated RBC % Seg Neutrophils # Seg Neutrophils # Man Lymphocytes # (Manual) Monocytes # (Manual) Eosinophils # (Manual) Basophils # (Manual) PT INR Fibrinogen dRVVT Confirm Interp Factor V Activity POC ABG pH POC ABG pCO2 POC ABG pO2 ABG pO2 ABG HCO3 ABG Base Excess ABG Hemoglobin Oxyhemoglobin Sodium Potassium Chloride Carbon Dioxide BUN 26 H Creatinine 1.9 H Glucose POC Glucose 133 H 135 H Lactic Acid Calcium Ionized Calcium Phosphorus Magnesium Direct Bilirubin AST ALT Alkaline Phosphatase Lactate Dehydrogenase Troponin T C-Reactive Protein Total Protein Albumin Prealbumin Triglycerides Cholesterol LDL Cholesterol Direct HDL Cholesterol 25-OH Vitamin D Total PTH Intact Urine pH Urine WBC (Auto) Urine Creatinine Urine Total Protein Fluid Total Protein Vancomycin Trough Rheumatoid Factor Complement C4 Miscellaneous Test Crossmatch 03/25/17 03/25/17 03/25/17 05:15 05:19 17:38 WBC RBC Hgb Hct MCV MCH MCHC RDW Plt Count Lymph % (Auto) [place] % (Auto) Lymph # [place] # Baso # Seg Neutrophils % Seg Neuts % (Manual) Lymphocytes % (Manual) Monocytes % (Manual) Eosinophils % (Manual) Basophils % (Manual) Nucleated RBC % Seg Neutrophils # Seg Neutrophils # Man Lymphocytes # (Manual) Monocytes # (Manual) Eosinophils # (Manual) Basophils # (Manual) PT INR Fibrinogen dRVVT Confirm Interp Factor V Activity POC ABG pH POC ABG pCO2 POC ABG pO2 ABG pO2 ABG HCO3 ABG Base Excess ABG Hemoglobin Oxyhemoglobin Sodium Potassium Chloride Carbon Dioxide BUN Creatinine 1.3 H Glucose POC Glucose 110 H 109 H Lactic Acid Calcium Ionized Calcium Phosphorus Magnesium Direct Bilirubin AST ALT Alkaline Phosphatase Lactate Dehydrogenase Troponin T C-Reactive Protein Total Protein Albumin Prealbumin Triglycerides Cholesterol LDL Cholesterol Direct HDL Cholesterol 25-OH Vitamin D Total PTH Intact Urine pH Urine WBC (Auto) Urine Creatinine Urine Total Protein Fluid Total Protein Vancomycin Trough Rheumatoid Factor Complement C4 Miscellaneous Test Crossmatch 03/25/17 03/26/17 03/26/17 23:57 09:35 12:18 WBC RBC Hgb Hct MCV MCH MCHC RDW Plt Count Lymph % (Auto) [place] % (Auto) Lymph # [place] # Baso # Seg Neutrophils % Seg Neuts % (Manual) Lymphocytes % (Manual) Monocytes % (Manual) Eosinophils % (Manual) Basophils % (Manual) Nucleated RBC % Seg Neutrophils # Seg Neutrophils # Man Lymphocytes # (Manual) Monocytes # (Manual) Eosinophils # (Manual) Basophils # (Manual) PT INR Fibrinogen dRVVT Confirm Interp Factor V Activity POC ABG pH POC ABG pCO2 POC ABG pO2 ABG pO2 ABG HCO3 ABG Base Excess ABG Hemoglobin Oxyhemoglobin Sodium Potassium Chloride Carbon Dioxide BUN 25 H Creatinine 2.0 H D Glucose POC Glucose 107 H 106 H Lactic Acid Calcium Ionized Calcium Phosphorus 4.60 H D Magnesium 2.40 H Direct Bilirubin AST ALT Alkaline Phosphatase Lactate Dehydrogenase Troponin T C-Reactive Protein Total Protein Albumin Prealbumin Triglycerides Cholesterol LDL Cholesterol Direct HDL Cholesterol 25-OH Vitamin D Total PTH Intact Urine pH Urine WBC (Auto) Urine Creatinine Urine Total Protein Fluid Total Protein Vancomycin Trough Rheumatoid Factor Complement C4 Miscellaneous Test Crossmatch 03/27/17 03/27/17 03/27/17 05:30 05:30 18:01 WBC RBC 2.95 L Hgb 8.9 L Hct 28.7 L MCV MCH MCHC RDW 24.4 H Plt Count Lymph % (Auto) [place] % (Auto) 8.6 H Lymph # [place] # Baso # Seg Neutrophils % Seg Neuts % (Manual) Lymphocytes % (Manual) Monocytes % (Manual) Eosinophils % (Manual) Basophils % (Manual) Nucleated RBC % Seg Neutrophils # Seg Neutrophils # Man Lymphocytes # (Manual) Monocytes # (Manual) Eosinophils # (Manual) Basophils # (Manual) PT INR Fibrinogen dRVVT Confirm Interp Factor V Activity POC ABG pH POC ABG pCO2 POC ABG pO2 ABG pO2 ABG HCO3 ABG Base Excess ABG Hemoglobin Oxyhemoglobin Sodium Potassium Chloride 96.9 L Carbon Dioxide BUN 29 H Creatinine 2.5 H Glucose 102 H POC Glucose 162 H Lactic Acid Calcium Ionized Calcium Phosphorus 5.30 H Magnesium 2.60 H Direct Bilirubin AST ALT Alkaline Phosphatase Lactate Dehydrogenase Troponin T C-Reactive Protein Total Protein Albumin Prealbumin Triglycerides Cholesterol LDL Cholesterol Direct HDL Cholesterol 25-OH Vitamin D Total PTH Intact Urine pH Urine WBC (Auto) Urine Creatinine Urine Total Protein Fluid Total Protein Vancomycin Trough Rheumatoid Factor Complement C4 Miscellaneous Test Crossmatch 03/28/17 03/28/17 03/29/17 00:03 05:46 04:30 WBC RBC Hgb Hct MCV MCH MCHC RDW Plt Count Lymph % (Auto) [place] % (Auto) Lymph # [place] # Baso # Seg Neutrophils % Seg Neuts % (Manual) Lymphocytes % (Manual) Monocytes % (Manual) Eosinophils % (Manual) Basophils % (Manual) Nucleated RBC % Seg Neutrophils # Seg Neutrophils # Man Lymphocytes # (Manual) Monocytes # (Manual) Eosinophils # (Manual) Basophils # (Manual) PT INR Fibrinogen dRVVT Confirm Interp Factor V Activity POC ABG pH POC ABG pCO2 POC ABG pO2 ABG pO2 ABG HCO3 ABG Base Excess ABG Hemoglobin Oxyhemoglobin Sodium Potassium Chloride 97.5 L Carbon Dioxide BUN 27 H Creatinine 2.4 H Glucose POC Glucose 118 H 116 H Lactic Acid Calcium Ionized Calcium Phosphorus Magnesium Direct Bilirubin AST ALT Alkaline Phosphatase Lactate Dehydrogenase Troponin T C-Reactive Protein Total Protein Albumin Prealbumin Triglycerides Cholesterol LDL Cholesterol Direct HDL Cholesterol 25-OH Vitamin D Total PTH Intact Urine pH Urine WBC (Auto) Urine Creatinine Urine Total Protein Fluid Total Protein Vancomycin Trough Rheumatoid Factor Complement C4 Miscellaneous Test Crossmatch 03/31/17 04/01/17 04/01/17 06:00 00:12 07:15 WBC RBC Hgb Hct MCV MCH MCHC RDW Plt Count Lymph % (Auto) [place] % (Auto) Lymph # [place] # Baso # Seg Neutrophils % Seg Neuts % (Manual) Lymphocytes % (Manual) Monocytes % (Manual) Eosinophils % (Manual) Basophils % (Manual) Nucleated RBC % Seg Neutrophils # Seg Neutrophils # Man Lymphocytes # (Manual) Monocytes # (Manual) Eosinophils # (Manual) Basophils # (Manual) PT INR Fibrinogen dRVVT Confirm Interp Factor V Activity POC ABG pH POC ABG pCO2 POC ABG pO2 ABG pO2 ABG HCO3 ABG Base Excess ABG Hemoglobin Oxyhemoglobin Sodium Potassium Chloride 97.1 L Carbon Dioxide BUN 44 H 28 H Creatinine 3.2 H 2.4 H Glucose 101 H POC Glucose 113 H Lactic Acid Calcium Ionized Calcium Phosphorus 5.90 H Magnesium 2.50 H Direct Bilirubin AST ALT Alkaline Phosphatase Lactate Dehydrogenase Troponin T C-Reactive Protein Total Protein Albumin Prealbumin Triglycerides Cholesterol LDL Cholesterol Direct HDL Cholesterol 25-OH Vitamin D Total PTH Intact Urine pH Urine WBC (Auto) Urine Creatinine Urine Total Protein Fluid Total Protein Vancomycin Trough Rheumatoid Factor Complement C4 Miscellaneous Test Crossmatch 04/03/17 04/03/17 04/03/17 04:00 05:37 11:40 WBC RBC 2.40 L Hgb 7.7 L Hct 24.1 L MCV 101 H MCH MCHC RDW 23.1 H Plt Count Lymph % (Auto) [place] % (Auto) Lymph # [place] # Baso # Seg Neutrophils % Seg Neuts % (Manual) Lymphocytes % (Manual) Monocytes % (Manual) Eosinophils % (Manual) Basophils % (Manual) Nucleated RBC % Seg Neutrophils # Seg Neutrophils # Man Lymphocytes # (Manual) Monocytes # (Manual) Eosinophils # (Manual) Basophils # (Manual) PT INR Fibrinogen dRVVT Confirm Interp Factor V Activity POC ABG pH POC ABG pCO2 POC ABG pO2 ABG pO2 ABG HCO3 ABG Base Excess ABG Hemoglobin Oxyhemoglobin Sodium 146 H Potassium Chloride Carbon Dioxide 32 H BUN 44 H Creatinine 3.3 H Glucose POC Glucose 113 H Lactic Acid Calcium Ionized Calcium Phosphorus 4.90 H Magnesium Direct Bilirubin AST ALT Alkaline Phosphatase Lactate Dehydrogenase Troponin T C-Reactive Protein Total Protein Albumin Prealbumin Triglycerides Cholesterol LDL Cholesterol Direct HDL Cholesterol 25-OH Vitamin D Total PTH Intact Urine pH Urine WBC (Auto) Urine Creatinine Urine Total Protein Fluid Total Protein Vancomycin Trough Rheumatoid Factor Complement C4 Miscellaneous Test Crossmatch 04/03/17 04/03/17 04/04/17 11:48 17:55 05:24 WBC RBC Hgb Hct MCV MCH MCHC RDW Plt Count Lymph % (Auto) [place] % (Auto) Lymph # [place] # Baso # Seg Neutrophils % Seg Neuts % (Manual) Lymphocytes % (Manual) Monocytes % (Manual) Eosinophils % (Manual) Basophils % (Manual) Nucleated RBC % Seg Neutrophils # Seg Neutrophils # Man Lymphocytes # (Manual) Monocytes # (Manual) Eosinophils # (Manual) Basophils # (Manual) PT INR Fibrinogen dRVVT Confirm Interp Factor V Activity POC ABG pH POC ABG pCO2 POC ABG pO2 ABG pO2 ABG HCO3 ABG Base Excess ABG Hemoglobin Oxyhemoglobin Sodium Potassium Chloride Carbon Dioxide BUN Creatinine Glucose POC Glucose 110 H 130 H 107 H Lactic Acid Calcium Ionized Calcium Phosphorus Magnesium Direct Bilirubin AST ALT Alkaline Phosphatase Lactate Dehydrogenase Troponin T C-Reactive Protein Total Protein Albumin Prealbumin Triglycerides Cholesterol LDL Cholesterol Direct HDL Cholesterol 25-OH Vitamin D Total PTH Intact Urine pH Urine WBC (Auto) Urine Creatinine Urine Total Protein Fluid Total Protein Vancomycin Trough Rheumatoid Factor Complement C4 Miscellaneous Test Crossmatch 02/04/04/17 04/04/17 07:20 07:20 11:59 WBC RBC Hgb Hct MCV MCH MCHC RDW Plt Count Lymph % (Auto) [place] % (Auto) Lymph # [place] # Baso # Seg Neutrophils % Seg Neuts % (Manual) Lymphocytes % (Manual) Monocytes % (Manual) Eosinophils % (Manual) Basophils % (Manual) Nucleated RBC % Seg Neutrophils # Seg Neutrophils # Man Lymphocytes # (Manual) Monocytes # (Manual) Eosinophils # (Manual) Basophils # (Manual) PT INR Fibrinogen dRVVT Confirm Interp Factor V Activity POC ABG pH POC ABG pCO2 POC ABG pO2 ABG pO2 ABG HCO3 ABG Base Excess ABG Hemoglobin Oxyhemoglobin Sodium Potassium 3.3 L Chloride Carbon Dioxide BUN 24 H Creatinine 2.1 H Glucose POC Glucose 106 H Lactic Acid Calcium Ionized Calcium Phosphorus 1.50 L D Magnesium 1.60 L Direct Bilirubin AST ALT Alkaline Phosphatase Lactate Dehydrogenase Troponin T C-Reactive Protein Total Protein Albumin 1.8 L Prealbumin Triglycerides Cholesterol LDL Cholesterol Direct HDL Cholesterol 25-OH Vitamin D Total PTH Intact Urine pH Urine WBC (Auto) Urine Creatinine Urine Total Protein Fluid Total Protein Vancomycin Trough Rheumatoid Factor Complement C4 Miscellaneous Test Crossmatch 04/05/17 04/05/17 04/06/17 04:45 11:55 06:54 WBC RBC Hgb Hct MCV MCH MCHC RDW Plt Count Lymph % (Auto) [place] % (Auto) Lymph # [place] # Baso # Seg Neutrophils % Seg Neuts % (Manual) Lymphocytes % (Manual) Monocytes % (Manual) Eosinophils % (Manual) Basophils % (Manual) Nucleated RBC % Seg Neutrophils # Seg Neutrophils # Man Lymphocytes # (Manual) Monocytes # (Manual) Eosinophils # (Manual) Basophils # (Manual) PT INR Fibrinogen dRVVT Confirm Interp Factor V Activity POC ABG pH POC ABG pCO2 POC ABG pO2 ABG pO2 ABG HCO3 ABG Base Excess ABG Hemoglobin Oxyhemoglobin Sodium Potassium Chloride Carbon Dioxide BUN 31 H Creatinine 2.6 H 1.6 H Glucose POC Glucose 108 H Lactic Acid Calcium Ionized Calcium Phosphorus 4.80 H D Magnesium Direct Bilirubin AST ALT Alkaline Phosphatase Lactate Dehydrogenase Troponin T C-Reactive Protein Total Protein Albumin Prealbumin Triglycerides Cholesterol LDL Cholesterol Direct HDL Cholesterol 25-OH Vitamin D Total PTH Intact Urine pH Urine WBC (Auto) Urine Creatinine Urine Total Protein Fluid Total Protein Vancomycin Trough Rheumatoid Factor Complement C4 Miscellaneous Test Crossmatch 04/07/17 04/08/17 04/09/17 11:38 04:00 06:09 WBC RBC Hgb Hct MCV MCH MCHC RDW Plt Count Lymph % (Auto) [place] % (Auto) Lymph # [place] # Baso # Seg Neutrophils % Seg Neuts % (Manual) Lymphocytes % (Manual) Monocytes % (Manual) Eosinophils % (Manual) Basophils % (Manual) Nucleated RBC % Seg Neutrophils # Seg Neutrophils # Man Lymphocytes # (Manual) Monocytes # (Manual) Eosinophils # (Manual) Basophils # (Manual) PT INR Fibrinogen dRVVT Confirm Interp Factor V Activity POC ABG pH POC ABG pCO2 POC ABG pO2 ABG pO2 ABG HCO3 ABG Base Excess ABG Hemoglobin Oxyhemoglobin Sodium Potassium Chloride Carbon Dioxide BUN 26 H Creatinine 1.7 H 2.5 H Glucose POC Glucose 113 H Lactic Acid Calcium 10.8 H Ionized Calcium Phosphorus Magnesium 1.60 L Direct Bilirubin AST ALT Alkaline Phosphatase Lactate Dehydrogenase Troponin T C-Reactive Protein Total Protein Albumin Prealbumin Triglycerides Cholesterol LDL Cholesterol Direct HDL Cholesterol 25-OH Vitamin D Total PTH Intact Urine pH Urine WBC (Auto) Urine Creatinine Urine Total Protein Fluid Total Protein Vancomycin Trough Rheumatoid Factor Complement C4 Miscellaneous Test Crossmatch Allied health notes reviewed: nursing
[2017-04-09] MEDS ORDERED: TPN ADULT IV SCH (20:00)
--- NOTE | 2017-04-09 20:23 | Progress Note ---
Assessment and Plan Assessment and plan: 47-year-old female patient , large CVA , hypoxic encephalopathy, status post cardiac arrest , vegetative state , atrial fibrillation , sepsis , aspiration pneumonia, end- stage renal disease on hemodialysis , multiple sacral and lower extremity decubiti requiring debridement , severe protein calorie malnutrition peritonitis / perforation, multiple surgeries, DO NOT RESUSCITATE status,prolonged hospital stay and poor prognosis, --Large CVA with mass effect/anoxic brain injury --Acute respiratory failure/status post tracheostomy/ventilator dependent/ continue current management --Aspiration pneumonia/managed with multiple antibiotics per ID currently on daptomycin and Zosyn --Status post cardiac arrest/anoxic encephalopathy/vegetative state --Perforated bowel/drainage of large fluid collection, continue supportive care --Peritonitis/gastric perforation/status post laparotomy/on TPN --A. fib with rapid ventricular rate/continue amiodarone as needed --Sepsis/recurrent enterococcal infection/currently off antibiotics --End-stage renal disease; on hemodialysis, nephrology following --Multiple sacral decubiti stage III to stage IV, post debridement, continue wound care --Severe protein calorie malnutrition; continue TPN, supportive care --DO NOT RESUSCITATE status, recommend hospice[family not willing] Very poor prognosis, family aware, recommend hospice, family considering Unable to place in LTAC/SNF, Multiple social issues Possible hospice placement on Monday tomorr Plan of care discussed with the patient's nurse History Interval history: Patient seen and examined medical records reviewed No new events reported by the nursing staff Patient remains intubated via trach, vent dependent Unresponsive and cachectic Not in acute distress Hospitalist Physical - Constitutional Vitals: Temp Pulse Resp BP Pulse Ox 97.6 F 122 H 15 128/82 97 04/09/17 16:00 04/09/17 19:40 04/09/17 18:00 04/09/17 19:40 04/09/17 19:40 General appearance: Present: no acute distress, cachectic, other (spontaneous opening of eyes, unresponsive) - EENT Eyes: Present: PERRL, EOM intact - Neck Neck: Present: supple, normal ROM - Respiratory Respiratory effort: normal Respiratory: negative: rales, rhonchi - Cardiovascular Rhythm: regular - Extremities Extremities: abnormal (contracted) Extremity abnormal: edema - Abdominal General gastrointestinal: soft, non-tender, non-distended, hypoactive bowel sounds - Integumentary Integumentary: Present: clear, warm - Psychiatric Psychiatric: appropriate mood/affect, cooperative - Neurologic Neurologic: CNII-XII intact, moves all extremities Results - Labs CBC & Chem 7: 04/03/17 11:40 04/09/17 06:09 Labs: Laboratory Last Values WBC 4.7 K/mm3 (4.5-11.0) 04/03/17 11:40 RBC 2.40 M/mm3 (3.65-5.03) L 04/03/17 11:40 Hgb 7.7 gm/dl (10.1-14.3) L 04/03/17 11:40 Hct 24.1 % (30.3-42.9) L 04/03/17 11:40 MCV 101 fl (79-97) H 04/03/17 11:40 MCH 32 pg (28-32) 04/03/17 11:40 MCHC 32 % (30-34) 04/03/17 11:40 RDW 23.1 % (13.2-15.2) H 04/03/17 11:40 Plt Count 251 K/mm3 (140-440) 04/03/17 11:40 Lymph % (Auto) 25.1 % (13.4-35.0) 03/27/17 05:30 [place] % (Auto) 8.6 % (0.0-7.3) H 03/27/17 05:30 Eos % (Auto) 3.9 % (0.0-4.3) 03/27/17 05:30 Baso % (Auto) 1.5 % (0.0-1.8) 03/27/17 05:30 Lymph # 1.4 K/mm3 (1.2-5.4) 03/27/17 05:30 [place] # 0.5 K/mm3 (0.0-0.8) 03/27/17 05:30 Eos # 0.2 K/mm3 (0.0-0.4) 03/27/17 05:30 Baso # 0.1 K/mm3 (0.0-0.1) 03/27/17 05:30 Add Manual Diff Complete 03/14/17 14:30 Total Counted 100 03/14/17 14:30 Seg Neutrophils % 60.9 % (40.0-70.0) 03/27/17 05:30 Seg Neuts % (Manual) 70.0 % (40.0-70.0) 03/14/17 14:30 Band Neutrophils % 0 % 03/14/17 14:30 Lymphocytes % (Manual) 13.0 % (13.4-35.0) L 03/14/17 14:30 Reactive Lymphs % (Man) 1.0 % 03/14/17 14:30 Monocytes % (Manual) 15.0 % (0.0-7.3) H 03/14/17 14:30 Eosinophils % (Manual) 1.0 % (0.0-4.3) 03/14/17 14:30 Basophils % (Manual) 0 % (0.0-1.8) 03/14/17 14:30 Metamyelocytes % 0 % 03/14/17 14:30 Myelocytes % 0 % 03/14/17 14:30 Promyelocytes % 0 % 03/14/17 14:30 Blast Cells % 0 % 03/14/17 14:30 Nucleated RBC % Not Reportable 03/14/17 14:30 Seg Neutrophils # 3.3 K/mm3 (1.8-7.7) 03/27/17 05:30 Seg Neutrophils # Man 12.3 K/mm3 (1.8-7.7) H 03/14/17 14:30 Band Neutrophils # 0.0 K/mm3 03/14/17 14:30 Lymphocytes # (Manual) 2.3 K/mm3 (1.2-5.4) 03/14/17 14:30 Abs React Lymphs (Man) 0.2 K/mm3 03/14/17 14:30 Monocytes # (Manual) 2.6 K/mm3 (0.0-0.8) H 03/14/17 14:30 Eosinophils # (Manual) 0.2 K/mm3 (0.0-0.4) 03/14/17 14:30 Basophils # (Manual) 0.0 K/mm3 (0.0-0.1) 03/14/17 14:30 Metamyelocytes # 0.0 K/mm3 03/14/17 14:30 Myelocytes # 0.0 K/mm3 03/14/17 14:30 Promyelocytes # 0.0 K/mm3 03/14/17 14:30 Blast Cells # 0.0 K/mm3 03/14/17 14:30 Pathologist Review 09/13/16 04:00 WBC Morphology Not Reportable 03/14/17 14:30 Hypersegmented Neuts Not Reportable 03/14/17 14:30 Hyposegmented Neuts Not Reportable 03/14/17 14:30 Hypogranular Neuts Not Reportable 03/14/17 14:30 Smudge Cells Not Reportable 03/14/17 14:30 Toxic Granulation Not Reportable 03/14/17 14:30 Toxic Vacuolation Not Reportable 03/14/17 14:30 Dohle Bodies Not Reportable 03/14/17 14:30 Pelger-Huet Anomaly Not Reportable 03/14/17 14:30 Jasmina Rods Not Reportable 03/14/17 14:30 Platelet Estimate Consistent w auto 03/14/17 14:30 Clumped Platelets Not Reportable 03/14/17 14:30 Plt Clumps, EDTA Not Reportable 03/14/17 14:30 Large Platelets Not Reportable 03/14/17 14:30 Giant Platelets Not Reportable 03/14/17 14:30 Platelet Satelliting Not Reportable 03/14/17 14:30 Plt Morphology Comment Not Reportable 03/14/17 14:30 RBC Morphology Not Reportable 03/14/17 14:30 Dimorphic RBCs Not Reportable 03/14/17 14:30 Polychromasia Not Reportable 03/14/17 14:30 Hypochromasia 2+ 03/14/17 14:30 Poikilocytosis Not Reportable 03/14/17 14:30 Anisocytosis 1+ 03/14/17 14:30 Microcytosis Not Reportable 03/14/17 14:30 Macrocytosis Not Reportable 03/14/17 14:30 Spherocytes Not Reportable 03/14/17 14:30 Pappenheimer Bodies Not Reportable 03/14/17 14:30 Sickle Cells Not Reportable 03/14/17 14:30 Target Cells Not Reportable 03/14/17 14:30 Tear Drop Cells Not Reportable 03/14/17 14:30 Ovalocytes Not Reportable 03/14/17 14:30 Stomatocytes 2+ 03/14/17 14:30 Helmet Cells Not Reportable 03/14/17 14:30 [place] Bodies Not Reportable 03/14/17 14:30 [place] Rings Not Reportable 03/14/17 14:30 Chuck Cells Not Reportable 03/14/17 14:30 Bite Cells Not Reportable 03/14/17 14:30 Crenated Cell Not Reportable 03/14/17 14:30 Elliptocytes Not Reportable 03/14/17 14:30 Acanthocytes (Spur) Not Reportable 03/14/17 14:30 Rouleaux Not Reportable 03/14/17 14:30 Hemoglobin C Crystals Not Reportable 03/14/17 14:30 Schistocytes Not Reportable 03/14/17 14:30 Malaria parasites Not Reportable 03/14/17 14:30 ESR > 140.0 mm/Hr (0-20) 09/08/16 11:48 Jun Bodies Not Reportable 03/14/17 14:30 Hem Pathologist Commnt No 03/14/17 14:30 PT 15.4 Sec. (12.2-14.9) H 01/13/17 15:50 INR 1.16 (0.87-1.13) H 01/13/17 15:50 APTT 33.0 Sec. (24.2-36.6) 10/09/16 03:45 Thrombin Time 16.8 Sec. (15.1-19.6) 09/03/16 00:10 Fibrinogen 750 mg/dl (211-480) H 09/08/16 11:48 Lupus Anticoagulant see below 09/12/16 09:59 LA PTT Baseline See scanned report 09/12/16 09:59 dRVVT Confirm Interp Positive (Negative) H 09/12/16 09:59 dRVVT Screen 50:50 See scanned report 09/12/16 09:59 dRVVT Mix Interpret See scanned report 09/12/16 09:59 Protein C Antigen 122 % (70-140) 09/08/16 15:35 Free Protein S 97 % normal (50-147) 09/08/16 15:35 Total Protein S 109 % (70-140) 09/08/16 15:35 Antithrombin III Ag 100 % (80-120) 09/08/16 15:35 Heparin Anti-Xa, Unfract Negative (Negative) 09/29/16 13:35 Factor V Activity 182 % (65-150) H 09/08/16 15:35 POC ABG pH 7.518 (7.35-7.45) H 03/03/17 20:17 ABG pH 7.450 pH Units (7.350-7.450) 12/05/16 Unknown POC ABG pCO2 28.8 (35-45) L 03/03/17 20: ABG pCO2 29.6 mm Hg 12/05/16 Unknown POC ABG pO2 61 (80-105) L 03/03/17 20: ABG pO2 75.2 mm Hg (80.0-90.0) L 12/05/16 Unknown POC ABG HCO3 23.4 03/03/17 20:17 ABG HCO3 20.1 mmol/L (20.0-26.0) 12/05/16 Unknown POC ABG Total CO2 24 03/03/17 20:17 POC ABG O2 Sat 94 03/03/17 20:17 ABG O2 Saturation 96.8 % (95.0-99.0) 12/05/16 Unknown ABG O2 Content 9.9 (0.0-44) 12/05/16 Unknown POC ABG Base Excess 0 03/03/17 20:17 ABG Base Excess -3.4 mmol/L (-2.0-3.0) L 12/05/16 Unknown ABG Hemoglobin 7.4 gm/dl (12.0-16.0) L 12/05/16 Unknown ABG Carboxyhemoglobin 1.8 % (0.0-5.0) 12/05/16 Unknown ABG Methemoglobin 0.6 % (0.0-1.5) 12/05/16 Unknown Oxyhemoglobin 94.5 % (95.0-99.0) L 12/05/16 Unknown FiO2 40 % 03/03/17 20:17 Sodium 139 mmol/L (137-145) 04/09/17 06:09 Potassium 4.9 mmol/L (3.6-5.0) 04/09/17 06:09 Chloride 101.5 mmol/L (98-107) 04/09/17 06:09 Carbon Dioxide 25 mmol/L (22-30) 04/09/17 06:09 Anion Gap 17 mmol/L 04/09/17 06:09 BUN 26 mg/dL (7-17) H 04/09/17 06:09 Creatinine 2.5 mg/dL (0.7-1.2) H 04/09/17 06:09 Estimated GFR 25 ml/min 04/09/17 06:09 BUN/Creatinine Ratio 10 % 04/09/17 06:09 Glucose 77 mg/dL (65-100) 04/09/17 06:09 POC Glucose 92 (70-105) 04/09/17 16:57 Osmolality 351 Mosm/kg 09/16/16 11:47 Lactic Acid 2.30 mmol/L (0.7-2.0) H* 01/09/17 08:22 Calcium 10.8 mg/dL (8.4-10.2) H 04/09/17 06:09 Ionized Calcium 6.0 mg/dL (4.8-5.6) H 02/15/17 19:08 Phosphorus 4.10 mg/dL (2.5-4.5) D 04/09/17 06:09 Magnesium 1.80 mg/dL (1.7-2.3) 04/09/17 06:09 Total Bilirubin 0.50 mg/dL (0.1-1.2) 04/04/17 07:20 Direct Bilirubin 0.2 mg/dL (0-0.2) 01/28/17 04:00 Indirect Bilirubin 0.3 mg/dL 01/28/17 04:00 AST 15 units/L (5-40) 04/04/17 07:20 ALT 7 units/L (7-56) 04/04/17 07:20 Alkaline Phosphatase 122 units/L (35-129) 04/04/17 07:20 Ammonia 27.0 umol/L (25-60) 09/07/16 08:37 Lactate Dehydrogenase 170 units/L (91-180) 01/13/17 15:50 Total Creatine Kinase 121 units/L (30-135) 09/29/16 20:12 CK-MB (CK-2) < 1.0 ng/mL (0.0-4.0) 09/29/16 20:12 CK-MB (CK-2) Rel Index 0.8 (0-4) 09/29/16 20:12 Troponin T 0.204 ng/mL (0.00-0.029) H* 09/29/16 20:12 C-Reactive Protein 19.50 mg/dL (0.00-1.30) H 03/14/17 12:51 Total Protein 7.3 g/dL (6.3-8.2) 04/04/17 07:20 Albumin 1.8 g/dL (3.9-5) L 04/04/17 07:20 Albumin/Globulin Ratio 0.3 % 04/04/17 07:20 Prealbumin 0.110 g/L (0.200-0.400) L 12/29/16 05:15 Triglycerides 94 mg/dL (2-149) 03/20/17 Unknown Cholesterol 31 mg/dL (50-199) L 09/29/16 20:12 LDL Cholesterol Direct 4 mg/dL (50-130) L 09/29/16 20:12 HDL Cholesterol 3 mg/dL (40-59) L 09/29/16 20:12 Cholesterol/HDL Ratio 10.33 % 09/29/16 20:12 Angiotensin Convert Enz See scanned report 09/08/16 11:48 Renin 0.99 ng/mL/h (0.25-5.82) 10/07/16 10:56 Aldosterone <1 ng/dL () 10/07/16 10:56 Aldosterone/Renin Dir see below 10/07/16 10:56 Serotonin Release Assay See scanned report 09/29/16 13:35 25-OH Vitamin D Total 13 ng/mL (30-100) L 02/15/17 19:08 25-Hydroxy Vitamin D2 . 02/15/17 19:08 25-Hydroxy Vitamin D3 . 02/15/17 19:08 TSH 1.010 mlU/mL (0.270-4.200) 09/07/16 08:37 HCG, Qual Negative (Negative) 09/03/16 00:10 PTH Intact 10.88 pg/mL (15-65) L 02/15/17 19:08 Total Cortisol 18.2 mcg/dL () 02/02/17 20:09 Urine Color Yellow (Yellow) 11/05/16 13:09 Urine Turbidity Clear (Clear) 11/05/16 13:09 Urine pH 9.0 (5.0-7.0) H 11/05/16 13:09 Ur Specific [place] 1.011 (1.003-1.030) 11/05/16 13:09 Urine Protein 100 mg/dl mg/dL (Negative) 11/05/16 13:09 Urine Glucose (UA) Neg mg/dL (Negative) 11/05/16 13:09 Urine Ketones Neg mg/dL (Negative) 11/05/16 13:09 Urine Blood Neg (Negative) 11/05/16 13:09 Urine Nitrite Neg (Negative) 11/05/16 13:09 Urine Bilirubin Neg (Negative) 11/05/16 13:09 Urine Urobilinogen < 2.0 mg/dL (<2.0) 11/05/16 13:09 Ur Leukocyte Esterase Neg (Negative) 11/05/16 13:09 Urine WBC (Auto) 4.0 /HPF (0.0-6.0) 11/05/16 13:09 Urine RBC (Auto) 1.0 /HPF (0.0-6.0) 11/05/16 13:09 U Epithel Cells (Auto) 1.0 /HPF (0-13.0) 10/07/16 18:30 Urine Bacteria (Auto) 4+ /HPF (Negative) 11/05/16 13:09 Urine WBC Clumps 2+ /HPF 09/07/16 02:47 Hyaline Casts 4 /LPF 09/07/16 02:47 Urine Mucus Few /HPF 10/07/16 18:30 Urine Yeast (Budding) 3+ /HPF 10/07/16 18:30 Urine Eosinophils None seen (None Seen) 09/07/16 16:00 Urine Total Volume 950 11/12/16 10:18 Urine Creatinine 19.7 mg/dL (0.1-20.0) 11/12/16 10:18 Height (in) 65.0 inches 11/12/16 10:18 Weight (lb) 181.0 lbs 11/12/16 10:18 Creatinine Clearance 5 11/12/16 10:18 Urine Sodium 36 mEq/L 09/16/16 19:19 Urine Total Protein 16 mg/dL (5-11.8) H 09/16/16 19:19 Fluid Type Pleural 01/13/17 12:10 Fluid Color Yellow 01/13/17 12:10 Fluid Appearance Hazy 01/13/17 12:10 Fluid WBC 182 /mm3 01/13/17 12:10 Fluid RBC 41 /mm3 01/13/17 12:10 Fluid Seg Neutrophils 85.0 % 01/13/17 12:10 Fluid Lymphocytes 8.0 % 01/13/17 12:10 Fluid Reactive Lymphs 0 % 01/13/17 12:10 Fluid Monocytes 6.0 % 01/13/17 12:10 Fluid Eosinophils 1.0 % 01/13/17 12:10 Fluid Basophils 0 % 01/13/17 12:10 Fluid Total Protein 3.0 (15.0-45.0) L 01/13/17 12:10 Fluid LDH 1322 01/13/17 12:10 Fluid Comment Diff performed 01/13/17 12:10 Vancomycin Trough 2.3 ug/mL (5.0-20.0) L 09/21/16 13:00 Random Vancomycin 26.0 ug/mL (0-40.0) 03/13/17 05:39 Urine Opiates Screen Presumptive negative 09/03/16 15:11 Urine Methadone Screen Presumptive positive 09/03/16 15:11 Ur Barbiturates Screen Presumptive positive 09/03/16 15:11 Ur Phencyclidine Scrn Presumptive negative 09/03/16 15:11 Ur Amphetamines Screen Presumptive negative 09/03/16 15:11 U Benzodiazepines Scrn Presumptive negative 09/03/16 15:11 Urine Cocaine Screen Presumptive negative 09/03/16 15:11 U Marijuana (THC) Screen Presumptive positive 09/03/16 15:11 Drugs of Abuse Note Disclamer 09/03/16 15:11 Rheumatoid Factor 24 IU/ml (0-13) H 09/08/16 11:48 SAHIL Screen Negative (Negative) 09/07/16 09:20 Proteinase 3 (PR3) Ab <1.0 AI (<1.0) 09/07/16 09:20 Myeloperoxidase Ab <1.0 AI (<1.0) 09/07/16 09:20 Sjogren's Antibody <1.0 AI (<1.0) 09/08/16 15:35 Scl-70 Scleroderma Ab <1.0 AI (<1.0) 09/08/16 15:35 Centromere B Antibody <1.0 AI (<1.0) 09/08/16 12:02 Heparin-induced Plt Ab Negative (Negative) 09/29/16 13:35 UF Heparin High Dose 11 % Release 09/29/16 13:35 SUDHIR UFH Low Dose 0.1 6 % Release 09/29/16 13:35 SUDHIR UFH Low Dose 0.5 8 % Release 09/29/16 13:35 Cardiolipid IgG Ab <14 GPL (<=14) 09/12/16 09:59 Cardiolipid IgA Ab <11 APL (<=11) 09/12/16 09:59 Cardiolipid IgM Ab <12 MPL (<=12) 09/12/16 09:59 Complement C3 148 mg/dL (90-180) 09/07/16 09:20 Complement C4 58 mg/dL (16-47) H 09/07/16 09:20 RPR Nonreactive (Nonreactive) 09/08/16 11:48 Hepatitis A IgM Ab Non-reactive (NonReactive) 09/24/16 14:40 Hep Bs Antigen Non-reactive (Negative) 09/24/16 14:40 Hep B Core IgM Ab Non-reactive (NonReactive) 09/24/16 14:40 Hepatitis C Antibody Non-reactive (NonReactive) 09/24/16 14:40 HIV 1&2 Antibody Rapid Non react (Non React) 09/08/16 11:48 HIV P24 Antigen Non react (Non React) 09/08/16 11:48 Miscellaneous Test Flexitest 1 H 01/09/17 18:45 Blood Type A POSITIVE 03/20/17 16:00 Antibody Screen Negative 03/20/17 16:00 DELORIS Antibody Screen Negative 11/24/16 11:20 Crossmatch See Detail 03/20/17 16:00
[2017-04-09] MEDS: DILAUDID IV PRN (21:29)
[2017-04-10] MEDS: HumuLIN R SUB-Q SCH ×2 (06:21→06:22)
[2017-04-10] MEDS: LOPRESSOR IV SCH ×3 (06:23→08:59)
[2017-04-10] MEDS: TRANSDERM-SCOP TD SCH (06:28)
[2017-04-10] MEDS: DUONEB *Not for PRN Use IH SCH (07:48)
--- NOTE | 2017-04-10 08:58 | Progress Note ---
Assessment and Plan Assessment * Oliguric acute kidney injury secondary to ATN on CKD - baseline SCr 1.7mg/dL; likely now ESRD --Patient's serum creatinine is noted to be low - due to wasting of muscle mass. Needs to be maintained on dialysis at this time. 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 * Abx per ID * Adjust Ca bath with dialysis * Rate control per cardiology * Transfuse pRBC per primary team. Epogen TIW prn * Vent management per pulm/CCM * Pressors prn for MAP>65 * Dose medications for renal function * Will see again on Monday Subjective Date of service: 04/10/17 Principal diagnosis: Acute resp failure on MVS; S/P Acute CVA; Acute Encephalopathy; JUANITA Interval history: Chart reviewed Objective - Vital Signs Vital signs: Vital Signs - 12hr 04/09/17 04/09/17 04/09/17 21:00 21:30 22:00 Temperature Pulse Rate 127 H 130 H 120 H Pulse Rate [ Apical] Pulse Rate [ Throughout] Respiratory 20 25 H 13 Rate Respiratory Rate [ Throughout] Blood Pressure 118/73 130/90 91/48 O2 Sat by Pulse 96 95 86 Oximetry O2 Sat by Pulse Oximetry [ Assessment] 04/09/17 04/09/17 04/09/17 22:30 23:00 23:22 Temperature Pulse Rate 115 H 116 H 117 H Pulse Rate [ Apical] Pulse Rate [ Throughout] Respiratory 13 13 15 Rate Respiratory Rate [ Throughout] Blood Pressure 100/55 110/62 110/62 O2 Sat by Pulse 90 94 95 Oximetry O2 Sat by Pulse Oximetry [ Assessment] 04/09/17 04/09/17 04/10/17 23:30 23:31 00:00 Temperature 100.3 F H Pulse Rate 117 H 121 H Pulse Rate [ 113 H Apical] Pulse Rate [ Throughout] Respiratory 13 15 Rate Respiratory Rate [ Throughout] Blood Pressure 84/37 98/63 O2 Sat by Pulse 96 100 96 Oximetry O2 Sat by Pulse Oximetry [ Assessment] 04/10/17 04/10/17 04/10/17 00:09 00:30 01:00 Temperature Pulse Rate 116 H 117 H 119 H Pulse Rate [ Apical] Pulse Rate [ Throughout] Respiratory 13 13 Rate Respiratory Rate [ Throughout] Blood Pressure 98/63 99/64 97/64 O2 Sat by Pulse 96 98 99 Oximetry O2 Sat by Pulse 95 Oximetry [ Assessment] 04/10/17 04/10/17 04/10/17 01:30 02:00 02:30 Temperature Pulse Rate 121 H 123 H 124 H Pulse Rate [ Apical] Pulse Rate [ Throughout] Respiratory 13 12 13 Rate Respiratory Rate [ Throughout] Blood Pressure 95/51 90/53 95/59 O2 Sat by Pulse 95 97 97 Oximetry O2 Sat by Pulse Oximetry [ Assessment] 04/10/17 04/10/17 04/10/17 03:00 03:30 04:00 Temperature 99.8 F H Pulse Rate 123 H 144 H 123 H Pulse Rate [ Apical] Pulse Rate [ Throughout] Respiratory 13 19 15 Rate Respiratory Rate [ Throughout] Blood Pressure 95/53 84/66 99/55 O2 Sat by Pulse 98 95 98 Oximetry O2 Sat by Pulse Oximetry [ Assessment] 04/10/17 04/10/17 04/10/17 04:30 05:00 05:30 Temperature Pulse Rate 167 H 128 H 123 H Pulse Rate [ Apical] Pulse Rate [ Throughout] Respiratory 13 17 Rate Respiratory Rate [ Throughout] Blood Pressure 99/55 140/89 115/80 O2 Sat by Pulse 100 97 95 Oximetry O2 Sat by Pulse Oximetry [ Assessment] 04/10/17 04/10/17 04/10/17 06:00 06:18 06:23 Temperature Pulse Rate 121 H 123 H 117 H Pulse Rate [ Apical] Pulse Rate [ Throughout] Respiratory 13 Rate Respiratory Rate [ Throughout] Blood Pressure 114/72 114/72 103/78 O2 Sat by Pulse 98 99 Oximetry O2 Sat by Pulse Oximetry [ Assessment] 04/10/17 04/10/17 04/10/17 06:29 06:30 07:00 Temperature Pulse Rate 122 H 121 H 107 H Pulse Rate [ Apical] Pulse Rate [ Throughout] Respiratory 13 15 Rate Respiratory Rate [ Throughout] Blood Pressure 114/72 97/69 110/64 O2 Sat by Pulse 97 98 Oximetry O2 Sat by Pulse Oximetry [ Assessment] 04/10/17 04/10/17 04/10/17 07:30 07:43 07:44 Temperature Pulse Rate 110 H 111 H Pulse Rate [ Apical] Pulse Rate [ 112 H 110 H Throughout] Respiratory 18 Rate Respiratory 21 18 Rate [ Throughout] Blood Pressure 107/72 107/72 O2 Sat by Pulse 97 98 Oximetry O2 Sat by Pulse Oximetry [ Assessment] 04/10/17 04/10/17 04/10/17 08:00 08:30 08:54 Temperature 98.3 F Pulse Rate 114 H 114 H 114 H Pulse Rate [ Apical] Pulse Rate [ Throughout] Respiratory 14 14 24 Rate Respiratory Rate [ Throughout] Blood Pressure 104/74 108/69 108/69 O2 Sat by Pulse 98 98 98 Oximetry O2 Sat by Pulse Oximetry [ Assessment] - General Appearance General appearance: chronically ill EENT: ATNC Neck: other (trach) Respiratory: Present: Other (coarse breath sounds) Cardiology: regular, S1S2 Gastrointestinal: hypoactive bowel sounds Integumentary: warm and dry Neurologic: other (no meaningful/purposeful response to tactile/verbal stimuli) Musculoskeletal: other (dependent edema) - Lab 04/03/17 11:40 04/09/17 06:09 Most recent lab results ABG pH 7.450 pH Units (7.350-7.450) 12/05/16 Unknown ABG pCO2 29.6 mm Hg 12/05/16 Unknown ABG pO2 75.2 mm Hg (80.0-90.0) L 12/05/16 Unknown ABG HCO3 20.1 mmol/L (20.0-26.0) 12/05/16 Unknown ABG O2 Saturation 96.8 % (95.0-99.0) 12/05/16 Unknown Calcium 10.8 mg/dL (8.4-10.2) H 04/09/17 06:09 Phosphorus 4.10 mg/dL (2.5-4.5) D 04/09/17 06:09 Magnesium 1.80 mg/dL (1.7-2.3) 04/09/17 06:09 Urine Creatinine 19.7 mg/dL (0.1-20.0) 11/12/16 10:18 Urine Sodium 36 mEq/L 09/16/16 19:19 Urine Total Protein 16 mg/dL (5-11.8) H 09/16/16 19:19
[2017-04-10] MEDS: HEPARIN IV PRN (10:50)
--- NOTE | 2017-04-10 11:24 | Event Note ---
Date: 04/10/17 Patient transferring to Hospice care today
--- NOTE | 2017-04-10 13:01 | Discharge Summary ---
Providers - Providers Date of Admission: 09/03/16 04:17 Date of discharge: 04/10/17 Attending physician: MICHELLE CARDENAS 03/02/17 08:58 Midline [Consult to PICC Line RN] [CONS] Routine Reason For Exam: Midline placement Type Line:: Midline 03/10/17 12:31 PICC Line Insertion [Consult to PICC Line RN] [CONS] Stat Reason For Exam: Pressor therapy Type Line:: PICC 03/13/17 14:07 Consult to Interventional Radiology [CONS] Routine Consulting Provider: BOOGIE BEARD Reason For Exam: Abdominal fluid collection; please place drain Place consult to:: Dr. Beard Notified:: yes If yes, spoke with:: Dr. Beard Time called:: 09:14 Comment:: notified in person 03/24/17 08:59 Consult to Wound/ET Nurse [CONS] Urgent Reason For Exam: wound eval: Wounds on (L), (R), +Middle lower lip 09/03/16 04:17 Occupational Therapy Evaluate and Treat [CONS] Routine Comment: Reason For Exam: Neuro deficits Physical Therapy Evaluation and Treat [CONS] Routine Comment: Reason For Exam: Neuro deficits 09/03/16 04:36 Consult to Physician [CONS] Routine Consulting Provider: AIMEE STEVEN Reason For Exam: cva Notified:: stenographer secretary pl call 09/03/16 04:51 Consult to Physician [CONS] Routine Consulting Provider: SANJAY LARA Reason For Exam: ICU Admission Place consult to:: Dr. Lara Notified:: Answering Service Phone number called:: [phone] 09/03/16 16:22 Consult to Dietitian/Nutrition [CONS] Routine Physician Instructions: Reason For Exam: Reason for Consult: Write/Manage Tube Feeding 09/03/16 18:06 Consult to Dietitian/Nutrition [CONS] Routine Physician Instructions: Assess nutrtn needs, initiate, modify, manage TF Reason For Exam: Reason for Consult: Write/Manage Tube Feeding Reason for Consult: Write/Manage Tube Feeding 09/06/16 09:53 Consult to Physician [CONS] Routine Consulting Provider: LILIANA YOO Reason For Exam: cva sp tpa Place consult to:: Dr Yoo Notified:: yes If yes, spoke with:: Dr Yoo 09/06/16 15:13 Consult to Physician [CONS] Routine Consulting Provider: VAISHNAVI DELGADO Reason For Exam: JUANITA Place consult to:: Dr Delgado Notified:: yes Phone number called:: [phone] Was contact made?: Yes If yes, spoke with:: brandy 09/07/16 13:09 PICC Line Insertion [Consult to PICC Line RN] [CONS] Stat Reason For Exam: Critical illness Type Line:: PICC 09/07/16 16:00 Consult to Dietitian/Nutrition [CONS] Routine Physician Instructions: Reason For Exam: Reason for Consult: Write/Manage Tube Feeding 09/13/16 10:09 Consult to Physician [CONS] Routine Consulting Provider: KARAN LOWERY Reason For Exam: trach & Peg Place consult to:: Dr Machado Notified:: Tracy - office staff Phone number called:: [phone] Was contact made?: Yes If yes, spoke with:: Tracy Time called:: 10:13 09/16/16 13:15 Consult to Physician [CONS] Urgent Consulting Provider: AARON DOCKERY Reason For Exam: GI Bleed Anemia Place consult to:: [facility] office Notified:: 1315 Phone number called:: [phone] Was contact made?: Yes If yes, spoke with:: Deng Mora Time called:: 13:15 09/23/16 21:27 Consult to Dietitian/Nutrition [CONS] Routine Physician Instructions: Reason For Exam: Reason for Consult: Evaluate nutritional intake 09/24/16 11:20 Consult to Physician [CONS] Urgent Consulting Provider: BOOGIE BEARD Reason For Exam: vascath placement today Notified:: left message Phone number called:: [phone] 09/28/16 11:32 Consult to Wound/ET Nurse [CONS] Routine Reason For Exam: wound eval 09/30/16 12:42 Consult to Physician [CONS] Routine Consulting Provider: MIRYAM CHAVEZ Reason For Exam: Large CVA,Pt has Afib needs anticoagulation/advise Place consult to:: Dr Chavez Notified:: yes Phone number called:: [phone] Was contact made?: Yes If yes, spoke with:: driver's license reviewing officer Time called:: 15:30 09/30/16 18:31 Consult to Physician [CONS] Routine Consulting Provider: SAMMY MICHELE Reason For Exam: 1. persistent large volume feeding tube effluent. Place consult to:: Dr. Michele Notified:: yes Phone number called:: Was contact made?: Yes If yes, spoke with:: rebeca Time called:: 20:12 10/01/16 18:24 Consult to Wound/ET Nurse [CONS] Urgent Reason For Exam: wound eval, skin peeling and bleeding cervical, magali 10/02/16 14:35 Consult to Interventional Radiology [CONS] Urgent Consulting Provider: BOOGIE BEARD Reason For Exam: G-J tube placement Place consult to:: Kisha Notified:: Yes Phone number called:: [phone] If yes, spoke with:: Yessica Time called:: 18:33 10/03/16 11:18 Consult to PICC Line RN [CONS] Routine Reason For Exam: PICC Type Line:: PICC 10/10/16 17:12 Consult to Physician [CONS] Routine Consulting Provider: MIRYAM CHAVEZ Reason For Exam: Stroke, Encephalopathy Place consult to:: Dr Chavez Notified:: yes, currently seeing patient Phone number called:: none - see progress notes Was contact made?: Yes Time called:: 18:19 Comment:: already seeing patient 10/11/16 15:56 Consult to Physician [CONS] Routine Consulting Provider: MIRYAM CHAVEZ Reason For Exam: unresponsive Place consult to:: cedric Notified:: yes Phone number called:: bedside Was contact made?: Yes If yes, spoke with:: already consulted Time called:: 10:00 10/11/16 17:06 Consult to Physician [CONS] Routine Consulting Provider: MIRYAM CHAVEZ Reason For Exam: CVA Place consult to:: boogie Notified:: yes Was contact made?: Yes If yes, spoke with:: cedric Time called:: 10:00 Comment:: already on case 10/11/16 18:16 Consult to Physician [CONS] Routine Consulting Provider: MIRYAM CHAVEZ Reason For Exam: CVA Place consult to:: cedric Notified:: yes Phone number called:: ok 10/20/16 08:40 Consult to Wound/ET Nurse [CONS] Routine Reason For Exam: wound eval hands peeling skin, moderate redness 10/26/16 16:13 Consult to Dietitian/Nutrition [CONS] Routine Physician Instructions: Assess nutrtn needs, initiate, modify, manage TF Reason For Exam: Reason for Consult: Write/Manage Tube Feeding Reason for Consult: Write/Manage Tube Feeding 10/26/16 19:17 Consult to Physician [CONS] Urgent Consulting Provider: BOOGIE BEARD Reason For Exam: Perm-a-Cath placement Place consult to:: Boogie Holman Notified:: Yes Phone number called:: [phone] Was contact made?: Yes If yes, spoke with:: Maia Time called:: 19:23 Comment:: Dr. Shafer will call back 11/04/16 15:36 Consult to Physician [CONS] Routine Consulting Provider: BRITTANY GALICIA Reason For Exam: fever Place consult to:: dr. Eli Notified:: yes If yes, spoke with:: yes Time called:: 17:01 Comment:: Asked for Dr. Pierre to call her. Notified 11/21/16 09:07 Consult to Dietitian/Nutrition [CONS] Routine Physician Instructions: Reason For Exam: Reason for Consult: Poor oral intake 11/24/16 10:47 Consult to Dietitian/Nutrition [CONS] Routine Physician Instructions: Reason For Exam: Reason for Consult: Write/Manage TPN/PPN 11/29/16 11:54 PICC Line Insertion [Consult to PICC Line RN] [CONS] Routine Reason For Exam: TPN Type Line:: PICC 11/30/16 17:19 Consult to Dietitian/Nutrition [CONS] Routine Physician Instructions: Reason For Exam: Tube Feeding Reason for Consult: Write/Manage Tube Feeding 12/02/16 11:54 Consult to Physician [CONS] Routine Consulting Provider: ANA FERRARA Reason For Exam: Fistula Place consult to:: dr Turner Notified:: Dr Turner Comment:: Please reconsult for fistula management 12/21/16 07:16 Consult to Wound/ET Nurse [CONS] Urgent Reason For Exam: wound eval sacral 12/27/16 12:21 Consult to Physician [CONS] Urgent Consulting Provider: CAMRON ARIAS Reason For Exam: SURGICAL DEBRIDEMENT Place consult to:: DR ARIAS Notified:: YES Was contact made?: Yes 12/29/16 13:18 Consult to Wound/ET Nurse [CONS] Routine Reason For Exam: wound eval 01/07/17 08:12 Consult to Ethics Committee [CONS] Routine Reason For Exam: Care plan 01/12/17 13:12 Consult to Interventional Radiology [CONS] Routine Consulting Provider: BOGOIE BEARD Reason For Exam: Right chest tube placement Place consult to:: Dr. Sy Notified:: yes Phone number called:: [phone] Was contact made?: Yes If yes, spoke with:: Marco Time called:: 17:00 02/06/17 15:15 Consult to Wound/ET Nurse [CONS] Urgent Reason For Exam: wound eval: inside bottom lip (possibly bitten) Primary care physician: ISOTOPE TECHNICIAN Hospitalization Reason for admission: Acute CVA Condition: Stable Pertinent studies: Intra-abdominal drain for fluid collection Hemodialysis placement CT head CT abdomen and pelvis Numerous chest x-rays Abdominal x-rays CT head MRI Moderate Echocardiogram Procedures: Tracheostomy PEG placement EGD Laparotomy Hemodialysis Catheter placement Intra-abdominal drainage Multiple other surgeries Hospital course: 47-year-old female patient , large CVA with mass effect, hypoxic encephalopathy , status post cardiac arrest , vegetative state , atrial fibrillation , sepsis , aspiration pneumonia, end- stage renal disease on hemodialysis , multiple sacral and lower extremity decubiti requiring debridement , severe protein calorie malnutrition peritonitis / perforation, multiple surgeries, DO NOT RESUSCITATE status,prolonged hospital stay and poor prognosis, Multiple episodes of sepsis with septic shock during her hospitalization s/p aspiration pneumonia/peritonitis from gastric perforation/UTI/candidemia/ decubitus ulcer s/p sacral decubitus debridement, Right pleural effusion Patient was independent, underwent tracheostomy and PEG Multiple family meetings but her, patient's poor prognosis was discussed with the family Remained full code but most of the hospital stay Date of family decided hospice, and patient was discharged from the hospital to inpatient hospice on 04/10/2017 Multiple consultations have evaluate and manage the patient Pulmonary critical Nephrology Neurology Multiple hospitalists Infectious diseases Cardiology Vascular Interventional Surgery Discharge diagnosis: --Large CVA with mass effect/anoxic brain injury --Acute respiratory failure/status post tracheostomy/ventilator dependent/ continue current management --Aspiration pneumonia/managed with multiple antibiotics per ID currently on daptomycin and Zosyn --Status post cardiac arrest/anoxic encephalopathy/vegetative state --Perforated bowel/drainage of large fluid collection, continue supportive care --Peritonitis/gastric perforation/status post laparotomy/on TPN --A. fib with rapid ventricular rate/continue amiodarone as needed --Sepsis/recurrent enterococcal infection/currently off antibiotics --End-stage renal disease; on hemodialysis, nephrology following --Multiple sacral decubiti stage III to stage IV, post debridement, continue wound care --Severe protein calorie malnutrition; continue TPN, supportive care --DO NOT RESUSCITATE status, recommend hospice[family not willing] Very poor prognosis, family aware, recommend hospice, family considering Patient critically ill,vegetative state, Family decided Hospice plcement. Patient is discharged and transferred to hospice. Disposition: DC-30 STILL A PATIENT Time spent for discharge: 35 min Core Measure Documentation - Palliative Care Palliative Care/ Comfort Measures: Hospice Care - Core Measures Any of the following diagnoses?: stroke - Stroke Discharge Requirements Statin for LDL = or >70 mg/dl on DC: Yes Anticoag for atrial fib/atrial flutter: No Reason for no anticoag for AF/F on DC: Medical Contraindication (severe anemia, thrombocytopenia, massive stroke risk of bleeding) Antithrombotic for ischemic stroke: No Reason for no antithrombotic on DC: Medical Contraindication (thrombocytopenia / severe anemia/massive stroke at risk of bleeding) Exam - Constitutional Vitals: Temp Pulse Resp BP Pulse Ox 98.8 F 115 H 11 L 83/55 100 04/10/17 09:30 04/10/17 10:00 04/10/17 10:00 04/10/17 10:00 04/10/17 10:00 General appearance: Present: no acute distress, other (unresponsive) - EENT Eyes: Present: PERRL, EOM intact - Neck Neck: Present: supple, other (tracheostomy) - Respiratory Respiratory: bilateral: diminished, rhonchi - Cardiovascular Rhythm: regular Heart Sounds: Present: S1 & S2 - Extremities Extremities: no ischemia Extremity abnormal: edema - Abdominal General gastrointestinal: Present: soft, non-tender, non-distended - Integumentary Integumentary: Present: clear, warm - Musculoskeletal Musculoskeletal: other (unresponsive) - Psychiatric Psychiatric: other (unresponsive) - Neurologic Neurologic: other (unresponsive) Plan Activity: advance as tolerated Additional Instructions: Transfer to hospice under the care of hospice medical supervisor Follow up with: PRIMARY MD THIAGO [Primary Care Provider] - 3-5 Days MIRYAM CHAVEZ MD [Staff Physician] - 7 Days Forms: Accompanied Note
[2017-04-10 14:17] VITALS: BP 82/49
--- NOTE | 2017-05-31 13:11 | Query- Present on Admission ---
[facility] Cl[facility] Date:____05/31/17 [employer] Coordinator/CDS:__Simone / Nithin Phone#:__[phone] Exercise your independent professional judgment when responding to this query. Questions asked do not imply a particular answer is desired or expected. We greatly appreciate your clarification on this issue. Clinical Documentation States: 47 year old female was admitted on 09/03/16 The Surgery consult note ( 12/27/16 Dr. Barillas) states " 46 yo female admitted with accelerated HTN and acute CVA. I have been consulted re her sacral decubitus " The Procedure note (12/28/16 Dr. Barillas) states " Debridement of sacral decubitus, stage 4 " Clinical Findings Show: Based on the above clinical scenario and your knowledge of the patient's case please clarify if the diagnosis stated below was present on admission: Diagnosis: ____Sacral Decubitus, stage 4 Present on admission : [ x] Yes (Y) [ ] Clinically undeterminable(W) [ ] No(N) Please also document response in your Progress Notes and/or Discharge Summary and indicate if the condition was present on admission. [facility]
== END 2017-04-10 12:00 | disposition hospice, home (50) | DRG 3 ==
LOC: ED 23:55 → CC1 09-03 04:17 → 4A 11-18 20:08 → CC1 11-21 09:22
PROVIDERS: ADMIT Internal Medicine; ATTEND Internal Medicine
PROC: 4A033R1 Measurement of Arterial Saturation, Peripheral, Percutaneous Approach (ICD-10-PCS; 2016-09-03)
PROC: 5A1955Z Respiratory Ventilation, Greater than 96 Consecutive Hours (ICD-10-PCS; principal; 2016-09-07)
PROC: 30233N1 Transfusion of Nonautologous Red Blood Cells into Peripheral Vein, Percutaneous Approach (ICD-10-PCS; 2016-09-10)
PROC: 0B113F4 Bypass Trachea to Cutaneous with Tracheostomy Device, Percutaneous Approach (ICD-10-PCS; 2016-09-20)
PROC: 0DH63UZ Insertion of Feeding Device into Stomach, Percutaneous Approach (ICD-10-PCS; 2016-09-20)
PROC: 06HN33Z Insertion of Infusion Device into Left Femoral Vein, Percutaneous Approach (ICD-10-PCS; 2016-09-24)
PROC: B54CZZA Ultrasonography of Left Lower Extremity Veins, Guidance (ICD-10-PCS; 2016-09-24)
PROC: 02H633Z Insertion of Infusion Device into Right Atrium, Percutaneous Approach (ICD-10-PCS; 2016-09-28)
PROC: B543ZZA Ultrasonography of Right Jugular Veins, Guidance (ICD-10-PCS; 2016-09-28)
PROC: 0WJP4ZZ Inspection of Gastrointestinal Tract, Percutaneous Endoscopic Approach (ICD-10-PCS; 2016-10-04)
PROC: 0DQ64ZZ Repair Stomach, Percutaneous Endoscopic Approach (ICD-10-PCS; 2016-10-05)
PROC: B544ZZA Ultrasonography of Left Jugular Veins, Guidance (ICD-10-PCS; 2016-10-27)
PROC: B514ZZA Fluoroscopy of Left Jugular Veins, Guidance (ICD-10-PCS; 2016-10-27)
PROC: 0JH63XZ Insertion of Tunneled Vascular Access Device into Chest Subcutaneous Tissue and Fascia, Percutaneous Approach (ICD-10-PCS; 2016-10-27)
PROC: 02H633Z Insertion of Infusion Device into Right Atrium, Percutaneous Approach (ICD-10-PCS; 2016-10-27)
PROC: 0W993ZZ Drainage of Right Pleural Cavity, Percutaneous Approach (ICD-10-PCS; 2016-11-14)
PROC: 5A12012 Performance of Cardiac Output, Single, Manual (ICD-10-PCS; 2016-11-21)
PROC: 0QBS0ZZ Excision of Coccyx, Open Approach (ICD-10-PCS; 2016-12-28)
PROC: 0QB10ZZ Excision of Sacrum, Open Approach (ICD-10-PCS; 2016-12-28)
PROC: 0W993ZZ Drainage of Right Pleural Cavity, Percutaneous Approach (ICD-10-PCS; 2017-01-14)
PROC: 0W993ZZ Drainage of Right Pleural Cavity, Percutaneous Approach (ICD-10-PCS; 2017-02-06)
PROC: 05PYX3Z Removal of Infusion Device from Upper Vein, External Approach (ICD-10-PCS; 2017-03-03)
PROC: 06HN33Z Insertion of Infusion Device into Left Femoral Vein, Percutaneous Approach (ICD-10-PCS; 2017-03-06)
PROC: 0W9F30Z Drainage of Abdominal Wall with Drainage Device, Percutaneous Approach (ICD-10-PCS; 2017-03-15)
DX: I63.9 Cerebral infarction, unspecified (principal); A41.9 Sepsis, unspecified organism; J96.01 Acute respiratory failure with hypoxia; N18.6 End stage renal disease; G92 Toxic encephalopathy; E87.3 Alkalosis; E87.6 Hypokalemia; E78.5 Hyperlipidemia, unspecified; R65.21 Severe sepsis with septic shock; N17.0 Acute kidney failure with tubular necrosis; I16.1 Hypertensive emergency; L89.154 Pressure ulcer of sacral region, stage 4; J90 Pleural effusion, not elsewhere classified; J69.0 Pneumonitis due to inhalation of food and vomit; E43 Unspecified severe protein-calorie malnutrition; R29.708 NIHSS score 8; N39.0 Urinary tract infection, site not specified; Y73.8 Miscellaneous gastroenterology and urology devices associated with adverse incidents, not elsewhere classified; Y92.9 Unspecified place or not applicable; S36.39XA Other injury of stomach, initial encounter; J45.909 Unspecified asthma, uncomplicated; E11.22 Type 2 diabetes mellitus with diabetic chronic kidney disease; N18.9 Chronic kidney disease, unspecified; Z79.4 Long term (current) use of insulin; I13.0 Hypertensive heart and chronic kidney disease with heart failure and stage 1 through stage 4 chronic kidney disease, or unspecified chronic kidney disease; I50.9 Heart failure, unspecified; D64.9 Anemia, unspecified; I46.9 Cardiac arrest, cause unspecified; B49 Unspecified mycosis; Z66 Do not resuscitate; K94.29 Other complications of gastrostomy
CPT/HCPCS: 31500; 32555; 36415; 36430; 36558; 36600; 49465; 70450; 70544; 70551; 71010; 71045; 74000; 74176; 74177; 76604; 76770; 76937; 77001; 80048; 80053; 80061; 80074; 80202; 80307; 81001; 81025; 82024; 82088; 82140; 82164; 82270; 82306; 82330; 82533; 82550; 82553; 82565; 82570; 82575; 82803; 82962; 83516; 83605; 83615; 83735; 83930; 83970; 84100; 84134; 84156; 84160; 84300; 84443; 84478; 84484; 84703; 85007; 85014; 85018; 85025; 85027; 85210; 85220; 85301; 85305; 85384; 85610; 85613; 85652; 85670; 85730; 86021; 86022; 86038; 86140; 86147; 86160; 86235; 86592; 86618; 86706; 86803; 86850; 86900; 86901; 86920; 87040; 87045; 87070; 87075; 87076; 87086; 87103; 87116; 87186; 87205; 87493; 87806; 88304; 88305; 88311; 88342; 89050; 89051; 90686; 90732; 93005; 93010; 93306; 93312; 93320; 93325; 93880; 93970; 93975; 94002; 94003; 94640; 94660; 94760; 96365; 96375; A4217; A6260; A9270-GY; C1750; C1769; C9113; J0171; J0282; J0360; J0690; J0692; J0696; J0713; J0878; J0885; J1160; J1170; J1265; J1364; J1450; J1630; J1644; J1815; J1818; J1885; J1940; J1953; J1956; J2060; J2185; J2248; J2250; J2270; J2370; J2405; J2543; J2704; J2765; J2920; J2930; J2997; J3010; J3246; J3260; J3370; J3475; J3480; J7030; J7040; J7050; J7060; J7070; J7120; J7512; P9016; P9045; P9047; Q9963; Q9967